=== PATIENT | male | born 1970 | race Caucasian/White ===

== ENCOUNTER 2022-02-10 09:08 | Outpatient (CLI) | payer MEDICARE, MEDICAID, SELFPAY ==
--- OUTSIDE RECORDS SUMMARY | 2022-02-14 17:00 | XMS_ITS | Encounter Summary ---
:1970 Author Organization [employer] Address [address], [place] [address] Care Team Providers Name Role Phone Gagandeep Hinojosa MD Primary Care Provider Reason for Visit Reason Comments Patient Care Coordination Encounter Details Date Type Department Care Team Description 07/17/2020 Care Coord [facility] Deborah Rodrigues Patien t Care Phone Medicine COLOR TECHNICIAN Coordination [facility] [place] [address] [place] [address] [phone] Social History Tobacco Use Types Packs/Day Years [...] Rodrigues LICSW - 07/17/2020 9:31 AM CDT Screen Tacker - Phone Call Contact with: KARLEY Easton CM, Dave Reason for call: Care Coordination Discussion/actions: Spoke with Rustam regarding his insulin supplies. We will get him supplies when he is moved into stable housing. Rustam said that he will be moving to [facility] [place] in [place] and is on [place] the world [...] Primary documented in this encounter Care Teams Resaw Tailer Relationship Specialty Start Date End Date Gagandeep Hinojosa MD PCP - General 05/17/12 [address] [place] [address] Vane Zarate Psychiatrist Psychiatry 03/22/12 [facility] Mental Health Psychotherapist 08/04/17 [facility] CM Wellness Rn 09/13/17 documented as of this encounter
--- OUTSIDE RECORDS SUMMARY | 2022-02-14 17:00 | XMS_ITS | Clinical Summary ---
:1970 Author Organization [facility] Address [address], [place] [address] Care Team Providers Name Role Phone Gagandeep [...] for each transition of care or referral. [employer] Allergies Active Allergy Reactions Severity Noted Date [...] scan blood 1 Each 0 12/04/2019 Active Hazmat Technician (FREESTYLE TALAT 2 sugars per mosaicist READER SYSTM) instructions. DEVIIndications: Uncontrolled type 2 [...] might be differe nt from the original. Automation Operator: ERLIN Salas [phone] Care coordination focus: T2DM, financial resources Living situation: lives with spouse Important notes: SSDI, significant insul in resistance, regularly reaches Medicare Coverage Gap and cannot afford insulin Problem Noted Date Non-proliferative diabetic retinopathy 05/02/2019 Hyponatremia 01/16/2018 Tinea versicolor 07/18/2015 Tobacco use disorder 10/26/2012 Anemia 05/02/2012 Overview: Anemia, unspecified Microalbuminuria 02/04/2012 AK, old 09/16/2011 History of PTCA 09/16/2011 Overview: [...] Bipolar I disorder 09/15/2005 Overview: LW Onset: [id number] ; Bipolar I Dis Resolved Problems Problem Noted Date Resolved Date Tobacco abuse 02/24/2016 12/18/2018 ACS (acute coronary syndrome) 10/25/2012 02/16/2017 Mass on back 05/02/2012 10/25/2012 Health retirement, active care coordination 03/22/2012 07/27/2018 Overview: Automation Operator: JOSETTE Yip [phone] Care coordination focus: T2DM, financial resources Living situation: lives with spouse Important notes: SSDI, significant insul in resistance, uses Relion insulin, commonly reaches Medicare Cover age Gap See care plan under Chart Review > Misc Reports > AMB [facility] CARE PLAN REPORT Last Assessment & Plan: Automation Operator: Lesly Rodrigues [facility] Care coordination focus: mental health Living situation: Lives with Important notes: case management star ting LFTs abnormal 02/02/2012 10/25/2012 S/P angioplasty with stent 05/26/2011 10/25/2012 Overview: Apr 2011 Plantar wart 05/26/2011 10/25/2012 Acute AK 05/01/2011 02/01/2012 Hypertriglyceridemia 12/11/2010 10/25/2012 Overview: >5000 [...] Influenza IIV4 (Quadrivalent) 0.5mL 01/07/2020, 01/16/2018, 02/16/2017, (14112) 02/24/2016, 03/27/2015, 01/16/2014, 03/14/2013 Influenza, Unspecified Formulation [...] Comments Blood Pressure 132/88 06/09/2020 4:43 PM INSTRUMENTATION DESIGNER Pulse 99 06/09/2020 4:43 PM INSTRUMENTATION DESIGNER Temperature 38.2 ??C (100.8 ??F) 05/02/2019 11:31 AM INSTRUMENTATION DESIGNER Respiratory Rate 16 03/07/2013 2:52 PM INSTRUMENTATION DESIGNER Oxygen Saturation 97% 10/27/2012 3:52 PM CDT Inhaled Oxygen Concentration - - Weight 88.9 kg (196 lb) 06/09/2020 4:43 PM INSTRUMENTATION DESIGNER Height 177.8 cm (5' 10) 12/04/2019 10:49 [...] Typ e / Group Dates MEDICARE MEDICARE [id number] 2009-Pres [facility] care ent SENIOR SENIOR [phone]-Pres [phone] [facility] ent [id number] SERVICES SERVICES SERVICES [address] [place] [id number] JACLYN TAL[place]OT [place] [id number] 2020-Pres [address] Med icaid ent [id number] [place] SUPERVISOR [employer] [place] [address] Yessy Personal/Family Self 1970 [address] [phone] [place] (Work[place] [address] Yessy Personal/Family Self 1970 [address] [address] [facility] [employer] [facility] Move In History [address] [place] [address] Advance Directives Latest Code Status on File Code Status Date Activated Date Inactivated Comments Full Code 10/25/2012 7:32 PM 10/27/2012 6:54 PM Full Code 05/14/2011 11:08 AM 05/14/2011 11:30 PM Full Code 04/30/2011 4:27 AM 05/01/2011 12:21 PM Care Teams Upholstery Department Supervisor Relationship Specialty Start Date End Date Gagandeep Hinojosa MD PCP - General 05/17/[address] [facility] [place] [address] Vane Zarate Psychiatrsamantha Psychiatry 03/22/12 [facility] Mental Health Psychotherapist 08/04/17 [facility] Search Marketing Analyst 09/13/17
--- OUTSIDE RECORDS SUMMARY | 2022-02-14 17:00 | XMS_ITS | Encounter Summary ---
:1970 Author Organization [employer] Address [address], [place] [address] Care Team Providers Name Role Phone Gagandeep Hinojosa MD Primary Care Provider Reason for Referral (Routine) - Closed Specialty Diagnoses / Procedures Referred By Contact Refer red To Contact Diagnoses Other chest pain Kailash Green DO Procedures Outreach Nuclear Study [address] [place] [id number] Referral ID Status Reason Start Date Expiration Date Visits Requ ested Visits Authorized [id number] Closed 06/19/2020 09/18/2021 1 1 ICATION SUPPORT ADMINISTRATOR Encounter Details Date Type Department Care Team Description 06/19/2020 Hospital Encounter Heart & Vascular Other chest pain Center Nuclear (Primary Dx) Cardiology [address] [facility] [place] [address] Social History Tobacco Use Types Packs/Day Years [...] to scan blood 1 Each 0 020 Corporate Driver (FREESTYLE sugars per TALAT 2 READER SYSTNicOx) sql etl developer DEVIIndications: instructions. Uncontrolled type 2 diabetes mellitus [...] Notes Kim Guadarrama - 06/19/2020 12:00 PM APPLICATION SUPPORT ADMINISTRATOR Encounter addended by: Kim Guadarrama on: 06/27/2020 7:07 AM Actions taken: Clinical Note Signed, Result filed ICATION SUPPORT ADMINISTRATOR documented in this encounter Procedure Notes Kim Guadarrama - 06/19/2020 12:00 PM CSTAssociated Order(s): OUTREACH NUCLEAR STUDY Results NM CARDIAC MPI STRESS TEST ( (Order [id number]) STRESS TEST PHARMACOLOGICAL ( (Order [id number]) Original Order Diagnosis: Chest pain [R07.9 (ICD-10-CM)] Chest pain, normal EKG Chest pain, normal EKG Reading Provider(s) Sonia Jara MD PACs images are not viewable in [employer] Link. See text report below. STRESS TEST PHARMACOLOGICAL Order: [id number] Status: Final result Visible to patient: No (not released) Next appt: None Dx: Chest pain Linked study orders: NM CARDIAC MPI STRESS TEST (Order: [id number]) Details Reading Physician Reading Date Result Priority Sonia Jara MD [phone] 06/19/2020 Routine Narrative & Impression STUDY: LEXISCAN NUCLEAR STRESS TEST, 06/19/2020. ORDERING DIAGNOSIS: Chest pain. This is a rest/stress single-isotope, single-photon emission computed tomography imaging performed using pharmacologic stress with gated SPECT imaging performed for the evaluation of known coronary artery disease in a 50-year-old male with risk factors of tobacco use, hyperlipidemia, hypertension, anddiabetes with past history of WA and percutaneous intervention who now presents with [...] patient. Patient Information Patient Name Timur Krishnamurthy ([id number]) Sex Male ICATION SUPPORT ADMINISTRATOR documented in this encounter Plan of Treatment Not on filedocumented as of this encounter Procedures Procedure Name Priority Date/Time Associated Diagnosis Comme nts OUTREACH NUCLEAR Routine 06/19/2020 12:00 PM Other chest pain Results for this STUDY APPLICATION SUPPORT ADMINISTRATOR procedure are i n the results section. documented in this encounter Results Outreach Nuclear Study (06/19/2020 12:00 PM APPLICATION SUPPORT ADMINISTRATOR) Narrative POCT - 06/19/2020 12:00 PM APPLICATION SUPPORT ADMINISTRATOR Kim Guadarrama ? 06/27/2020 ??7:06 AM Results NM CARDIAC MPI STRESS TEST ( [id number]) (Order [id number]) STRESS TEST PHARMACOLOGICAL (Accession A [id number]) (Order [id number]) Original Order Diagnosis: Chest pain [R0 7.9 (ICD-10-CM)] Chest pain, normal EKG Chest pain, normal EKG Reading Provider(s) Sonia Jara MD PACs images are not viewable in [employer] Link. See text report below. STRESS TEST PHARMACOLOGICAL Order: [id number] Status: Final result Visible to patient: No (not released) Next appt: None Dx: Chest pain Linked study orders: NM CARDIAC MPI STRE SS TEST (Order: [id number]) Details Reading Physician Reading Date Result Pr willdeepak Sonia Jara MD [phone] 06/19/2020 Routine ?? Narrative & Impression ?? [...] nayana, and diabetes with past history of WA and percutaneous inte rvention who now presents [...] This result is not viewable by the [facility]. Patient Information Patient Name Timur Krishnamurthy ([id number]) Sex Male Procedure Note July - 06/19/2020 12:00 PM CST Results NM CARDIAC MPI STRESS TEST ( [id number]) (Order [id number]) STRESS TEST PHARMACOLOGICAL (Accession A [id number]) (Order [id number]) Original Order Diagnosis: Chest pain [R0 7.9 (ICD-10-CM)] Chest pain, normal EKG Chest pain, normal EKG Reading Provider(s) Sonia Jara MD PACs images are not viewable in [employer] Link. See text report below. STRESS TEST PHARMACOLOGICAL Order: [id number] Status: Final result Visible to patient: No (not released) Next appt: None Dx: Chest pain Linked study orders: NM CARDIAC MPI STRE SS TEST (Order: [id number]) Details Reading Physician Reading Date Result Pr Sonia Gilbert MD [phone] 06/19/2020 Routine Narrative & Impression STUDY: LEXISCAN NUCLEAR STRESS TEST, . ORDERING DIAGNOSIS: Chest pain. This is a rest/stress single-isotope, si ngle-photon emission computed tomography imaging performed using pharmacologic stress with gated SPECT imaging performed for the evaluation of known coronary artery disease in a 50-year-old male with risk factors of to bacco use, hyperlipidemia, hypertension, and diabetes with past history of WA and percutaneous intervention who now presents with [...] humphrey. Patient Information Patient Name Timur Krishnamurthy ([id number]) Sex Male Kailash Green DO PN CARDIAC SERVICES ORDERABL ES Performing Organization Address City/State/ZIP Code Phon e Number POCT documented in this encounter Visit Diagnoses Diagnosis Other chest pain - Primary documented in this encounter Care Teams Php Developer Relationship Specialty Start Date End Date Gagandeep Hinojosa MD PCP - General 05/17/12 [address] [facility] [place] [id number] Vane Zarate Psychiatrsamantha Psychiatry 03/22/12 [facility] Psychotherapist 08/04/17 [facility] Microbiological Lab Technician 09/13/17 documented as of this encounter
--- OUTSIDE RECORDS SUMMARY | 2022-02-14 17:00 | XMS_ITS | Encounter Summary ---
:1970 Author Organization [employer] Address [address] [place] [address] Care Team Providers Name Role Phone Gagandeep Michaud MD Primary Care Provider Reason for Visit Reason Comments Refill metoprolol succinate (TOPROL XL) 50 MG 24 hour release tablet [Pharmacy Med Name: Metoprolol Succinate E R 50 MG Tablet extended release 24 hr] Encounter Details Date Type Department Care Team Description 09/02/2020 Refill Gaagndeep Storm, Refil l (metoprolol Medicine MD succinate (TOPROL XL) [address] MG 24 hour release [place] [address] [place] [address] tablet [Pharmacy Med [phone] (Wo rk) Name: Metoprolol Succinate ER 50 [...] 1 TABLET BY MOUTH DAILY Interface, Out Coin Query - 09/02/2020 1:16 PM CDT metoprolol [...] MICHAUD) Next scheduled visit: None Powered by Le[employer]ir by [employer], Reference: [id number], 09/02/2020 1:16:41 PM CDT, Pool:MANUEL REFILL ([id number]) documented in this encounter Plan of Treatment Not on filedocumented as of this encounter Visit Diagnoses Diagnosis Essential hypertension (HRC) Unspecified essential hypertension documented in this encounter Care Teams Mechanical Equipment Test Engineer Relationship Specialty Start Date End Date Gagandeep Michaud MD PCP - General 05/17/12 [address] [facility] [place] [address] Vane Zarate Psychiatrist Psychiatry 03/22/12 [facility] Mental Health Psychotherapist 08/04/17 [facility] Extension Professor 09/13/17 documented as of this encounter
--- OUTSIDE RECORDS SUMMARY | 2022-02-14 17:00 | XMS_ITS | Encounter Summary ---
:1970 Author Organization [employer] [facility] Address [address], [place] [address] Care Team Providers Name Role Phone Gagandeep Hinojosa MD Primary Care Provider Reason for Visit Reason Comments Patient Care Coordination Encounter Details Date Type Department Care Team Description 06/24/2020 Care Coord [facility] Deborah Rodrigues Patien t Care Phone Medicine [facility] Coordination [facility] [address] [place] [address] [phone] Social History Tobacco Use Types Packs/Day Years [...] routed to JOSETTE [facility] as an FYI HALMOLOGIST RETINA SPECIALIST documented in this encounter Plan of Treatment Not on filedocumented as of this encounter Visit Diagnoses Diagnosis Complex care coordination - Primary documented in this encounter Care Teams Emc Storage Architect Relationship Specialty Start Date End Date Gagandeep Hinojosa MD PCP - General 05/17/12 [address] [facility] [place] [address] Vane Zarate Psychiatrist Psychiatry 03/22/12 [facility] Mental Health Psychotherapist 08/04/17 [facility] Wireless Internet Installer 09/13/17 documented as of this encounter
--- OUTSIDE RECORDS SUMMARY | 2022-02-14 17:00 | XMS_ITS | Encounter Summary ---
:1970 Author Organization [facility] Address [address] [address] Care Team Providers Name Role Phone Gagandeep Hinojosa MD Primary Care Provider Reason for Visit Reason Comments Patient Care Coordination Encounter Details Date Type Department Care Team Description 09/05/2020 Care Coord [facility] [facility] Deborah Rodrigues Patien t Care Phone Medicine [facility] Coordination [facility] [place] [address] [place] [address] [phone] Social History Tobacco Use Types Packs/Day Years [...] Rodrigues LICSW - 09/05/2020 1:18 PM CDT String Winding Machine Operator - Phone Call Contact with: Rustam Reason for call: Care Coordination Discussion/actions: Received a phone call from Rustam. He stated that he is seeing a provider in [place] and is planning on following up there. He requested his Dermatology appointment be cancelled at this time. Rustam also said that the insulin samples that he received are not needed anymore. Rustam did agree to continue contact with care coordination, as he is planning on moving back to [place] after the first of the year. No immediate concerns at this time. Shared plan: -Care Coordination follow-up as needed. Pt verbalized understanding and agreed with plan of care and follow up. documented in this encounter Plan of Treatment Not on filedocumented as of this encounter Visit Diagnoses Diagnosis Health mcfp, active care coordinati on - Primary documented in this encounter Care Teams Security Incident Response Specialist Relationship Specialty Start Date End Date Gagandeep Hinojosa MD PCP - General 05/17/12 [facility] [facility] [place] [address] Vane Zarate Psychiatrist Psychiatry 03/22/12 [facility] Mental Health Psychotherapist 08/04/17 [facility] Car Repair Supervisor 09/13/17 documented as of this encounter
--- OUTSIDE RECORDS SUMMARY | 2022-02-14 17:00 | XMS_ITS | Encounter Summary ---
:1970 Author Organization [employer] [facility] Address [address], [place] [address] Care Team Providers Name Role Phone Gagandeep Michaud MD Primary Care Provider Reason for Visit Reason Comments Refill Aspirin and Depakote Encounter Details Date Type Department Care Team Description 09/02/2020 Refill [facility] Gagandeep Michaud, Refil l (Aspirin and Medicine MD Shearer) 14[address] [facility] . [address] [place] [address] [place], [place] [address] (Wo rk) Social History Tobacco Use Types [...] provider through [place] as he moved to [place] now. Will request refills through new provider. [...] MICHAUD) Next scheduled visit: None Powered by [employer] [facility] by [employer], Reference: [id number], 09/02/2020 1:13:39 PM CDT, Pool:MANUEL LANDAILL ([id number]) divalproex (DEPAKOTE) [address] tablet [Pharmacy [...] WBC: 8.4 k/cmm on 11/28/2018 Powered by MakeSpace by [employer], Reference: [id number], 09/02/2020 1:13:39 PM CDT, Pool:MANUEL MOORE ([id number]) documented in this encounter Plan of Treatment Not on filedocumented as of this encounter Visit Diagnoses Not on filedocumented in this encounter Care Teams Director Intelligence Analysis Programs Relationship Specialty Start Date End Date Gagandeep Michaud MD PCP - General 05/17/12 [facility]5 [facility] [place] [address] Vane Zarate Psychiatrist Psychiatry 03/22/12 [facility] Mental Health Psychotherapist 08/04/17 [facility] Counter Supply Worker 09/13/17 documented as of this encounter
--- OUTSIDE RECORDS SUMMARY | 2022-02-14 17:00 | XMS_ITS | Encounter Summary ---
:1970 Author Organization [employer] Address [address] [place] [address] Care Team Providers Name Role Phone Gagandeep Michaud MD Primary Care Provider Reason for Visit Reason Comments Refill Lasix Encounter Details Date Type Department Care Team Description 09/02/2020 Refill [facility] Gagandeep Michaud MD Refill (Lasix) 1415 [facility] . [address] [place] [address] [place], [place] [address] (Wo rk) Social History Tobacco Use Types [...] provider through [place] as he moved to [place] now. Will request refills through new provider. [...] TABLET BY MOUTH EVERY MORNING Interface, Out Apex Construction Prov Query - 09/02/2020 1:14 PM CDT [...] K: 5 mEq/L on 11/28/2018 Powered by [employer]Spring by [employer], Reference: [id number], 09/02/2020 1:14:54 PM CDT, Pool: MANUEL LANDAILL ([id number]) documented in this encounter Plan of Treatment Not on filedocumented as of this encounter Visit Diagnoses Not on filedocumented in this encounter Care Teams Yard Manager Relationship Specialty Start Date End Date Gagandeep Michaud MD PCP - General 05/17/12 1415 [facility] [place] [address] Vane Zarate Psychiatrist Psychiatry 03/22/12 [facility] Mental Health Psychotherapist 08/04/17 [facility] Signal Processing Engineer 09/13/17 documented as of this encounter
--- OUTSIDE RECORDS SUMMARY | 2022-02-14 17:00 | XMS_ITS | Encounter Summary ---
:1970 Author Organization [facility] Address [address] [address] Care Team Providers Name Role Phone Gagandeep Hinojosa MD Primary Care Provider Reason for Visit Reason Comments Patient Care Coordination Encounter Details Date Type Department Care Team Description 08/20/2020 Care Coord [facility] Deborah Rodrigues Patien t Care Phone Medicine METAL PICKLING EQUIPMENT OPERATOR Coordination [facility] [place] [address] [place] [address] [phone] Social History Tobacco Use Types Packs/Day Years [...] Rodrigues LICSW - 08/20/2020 2:18 PM CDT Software Engineer Web Services - Phone Call Contact with: KARLEY Easton CM Reason for call: Care Coordination Discussion/actions: Called Rustam to check in, and he stated he is doing ???okay and is at a [facility] in [place].Rustam said that he has been having a lot of anxiety, but is trying to get settled in down there. Rustam is establishing medical care in [place], but agreed to call if he needed anything. I talked with him about the free insulin that was shipped to the [facility], but he was unable to think about a solution on how to get the insulin. I told Rustam that he has a dermatology appointment next month, at the [facility], so he may be able to [...] he is going to make sure the fci can transport him. Once Han confirms that [...] Primary documented in this encounter Care Teams Fryer Operator Relationship Specialty Start Date End Date Gagandeep Hinojosa MD PCP - General 05/17/12 [address] [place] [address] Vane Zarate Psychiatrist Psychiatry 03/22/12 [facility] Mental Health Psychotherapist 08/04/17 [facility] Distribution Manager 09/13/17 documented as of this encounter
--- OUTSIDE RECORDS SUMMARY | 2022-02-14 17:00 | XMS_ITS | Encounter Summary ---
:1970 Author Organization [employer] Address [address] [place] [address] Care Team Providers Name Role Phone Gagandeep Michaud MD Primary Care Provider Reason for Visit Reason Comments Refill Crestor Encounter Details Date Type Department Care Team Description 09/02/2020 Refill [facility] Gagandeep Michaud MD Refill (Crestor) 1415 [facility] . [address] [place] [address] [place], [place] [address] (Wo rk) Social History Tobacco Use Types [...] provider through [place] as he moved to [place] now. Will request refills through new provider. [...] MICHAUD) Next scheduled visit: None Powered by [facility] by [employer], Reference: [id number], 09/02/2020 1:18:44 PM CDT, Pool:MANUEL REFILL ([id number]) documented in this encounter Plan of Treatment Not on filedocumented as of this encounter Visit Diagnoses Not on filedocumented in this encounter Care Teams Mental Health Program Specialist Relationship Specialty Start Date End Date Gagandeep Michaud MD PCP - General 05/17/12 1415 [facility] [place] [address] Vane Zarate Psychiatrist Psychiatry 03/22/12 [facility] Mental Health Psychotherapist 08/04/17 [facility] Quality Eng 09/13/17 documented as of this encounter
--- OUTSIDE RECORDS SUMMARY | 2022-02-14 17:00 | XMS_ITS | Encounter Summary ---
:1970 Author Organization [employer] Address [address] [place] [address] Care Team Providers Name Role Phone Gagandeep Hinojosa MD Primary Care Provider Reason for Visit Reason Comments QUESTIONS, GENERAL Encounter Details Date Type Department Care Team Description 07/16/2020 Telephone [place] [facility] Gagandeep Hinojosa, QUESTIONS, GENERAL 14[address] [facility] [place] [address] 1415 [facility] [phone] [place] [phone] (Wo rk) Social History Tobacco [...] Rodrigues LICSW - 07/17/2020 3:51 PM CDT Bindery Machine Setter/Set Up Operator - Phone Call Contact with: Rustam Reason for call: Care Coordination Discussion/actions: Received a phone call back from Rustam. We discussed his diabetic supplies and hewill get them when he moves to permanent housing. Rustam is currently in an IRTS and has been asked to leave. Spoke with his CMHan, who confirmed Rustam will be moving to [facility] in [place]. Once Rustam is settled there, we will [...] [place]. [place] [phone] if he calls the clinic. Corinne Villafuerte - 07/16/2020 1:08 PM CDT Miscellaneous Questions & FYI's - Question/Concern (DO NOT use for billing and coding concerns see BEST care reporting system) What is your question or concern? Pt calling regarding diabetic supplies that was shipped to in [place]. See encounter from rn transitional care on 06/30/2020. States he has a stable address now. The address is: Sarai M[place]s [address] [place] [address] Phone number for Sarai powell [phone]. Would like a call back when it [...] on filedocumented in this encounter Care Teams Engraver Pantograph Relationship Specialty Start Date End Date Gagandeep Hinojosa MD PCP - General 05/17/12 [address] [place] [address] Vane Zarate Psychiatrist Psychiatry 03/22/12 [facility] Psychotherapist 08/04/17 [facility] CM Air Quality Specialist 09/13/17 documented as of this encounter
--- OUTSIDE RECORDS SUMMARY | 2022-02-14 17:00 | XMS_ITS | Clinical Summary ---
:1970 Author Organization [employer] [place] [address] Care Team Providers Name Role Phone Glenys Alcantar MD Unavailable [facility] [place] Unavailable Zhane Stanley DO Primary [...] 2 diabetes mellitus without complication, unspecified whether assisted insulin use (HC) polyethylene Drink up to [...] EVERY 22 tabletIndications: NIGHT AT CAD in [place] artery BEDTIME FreeStyle Bharath 2 To be used to 1 Each 0 11/21/19 Active ReaderIndications: read blood 22 Type 2 diabetes sugars per mellitus with evening sitter's diabetic directions. polyneuropathy, with long-term current use [...] Telephone Shaqra, Zhane Анна, Refill Req uest ([place] DO Cough Drops - C samra, Ibuprofen [...] Name Administration Dates Next Due COVID-19 vaccine (A2B 09/16/2020, 08/26/2020 30mcg/0.3mL) PF, MDV Hepatitis B [...] Zhane Stanley , DO [address] [place] [address] (Wo rk) Health Maintenance Due [...] note that all CT scans at [facility] use dose modulation, iterative reconstruction and/or weight-b [...] ?? If you have questions, please contact [facility] health care provider. CT CHEST SCREENING LOW-DOSE [...] DISH . Upper abdomen: Unremarkable. Keila Diamond INSTRUCTIONAL SUPPORT SPECIALIST CT from Last 3 Months Insurance Payer Benefit Plan / Subscriber ID Effective Dates Phone Addre ss Type Group MEDICARE PART A MEDICARE PART [id number] 1995-Presen ATTN: CLAIMS - HB USE ONLY A HB ONLY t [address] [place] [address] MEDICARE PART B MEDICARE PART [id number] 2009-Presen ATTN: CLAIMS - HB USE ONLY B HB ONLY t [address] [place] [address] MEDICARE - PB MEDICARE PB [id number] 2009-Presen ATTN : CLAIMS USE ONLY ONLY t [address] [place] [address] MEDICARE PPS HC MEDICARE [id number] 1995-Presen [address] 2019 [address] [place] [address] [place]ICAID [place] [id number] 2020-Presen [address] [place] [address] Advance Directives Documents on File Type Date Recorded Patient Trading Manager Explanati on POLST 08/20/2020 5:18 PM POLST [...] Code Status Discussion: Not Discussed Care Teams Customer Support Coordinator Relationship Specialty Start Date End Date Zhane Stanley DO PCP - General Internal Medicine 09/08/20 [address] [place] [address] Glenys Alcantar MD Endocrinology 05/03/17 [address] [place] [address] [facility], 05/21/20 [place] Samantha Minaya, Pharmacist Medication Pharmacology 10/21/20 PharmD Management [address] [place], [place] [id number]
--- OUTSIDE RECORDS SUMMARY | 2022-02-14 17:00 | XMS_ITS | Encounter Summary ---
:1970 Author Organization [facility] Address [address] [place] [address] Care Team Providers Name Role Phone Gagandeep Michaud MD Primary Care Provider Reason for Visit Reason Comments Refill metFORMIN (GLUCOPHAGE) 1000 MG tablet [Pharmacy Med Name: metFORMIN HCl 1000 MG Tablet]; lisinopril (ZEST RIL) 5 MG tablet [Pharmacy Med Name: Lisinopril 5 MG Tablet] Encounter Details Date Type Department Care Team Description 09/02/2020 Refill [facility] [facility] Gagandeep Michaud, Refil l (metFORMIN Medicine MD (GLUCOPHAGE) [address] tablet [[place] [address] [place] [address] Name: metFORMIN HCl 1000 [phone] (Wo rk) MG Tablet]; lisinopril (ZESTRIL) 5 [...] MICHAUD) Next scheduled visit: None Powered by [employer] by [employer], Reference: [id number], 09/02/2020 1:17:40 PM CDT, Pool:MANUEL MOORE ([id number]) documented in this encounter Plan of Treatment Not on filedocumented as of this encounter Visit Diagnoses Not on filedocumented in this encounter Care Teams Cotton Tipper Relationship Specialty Start Date End Date Gagandeep Michaud MD PCP - General 05/17/[address] [place], [place] [address] [address] Vane Zarate Psychiatrist Psychiatry 03/22/12 [facility] Mental Health Psychotherapist 08/04/17 [facility] Organ Fixer 09/13/17 documented as of this encounter
--- OUTSIDE RECORDS SUMMARY | 2022-02-14 17:00 | XMS_ITS | Encounter Summary ---
:1970 Author Organization On license of [facility] Address [address] [place] [address] Care Team Providers Name Role Phone Gagandeep Hinojosa MD Primary Care Provider Reason for Visit Reason Comments FYI Encounter Details Date Type Department Care Team Description 09/19/2020 Telephone [place] [facility] Gagandeep Hinojosa MD FYI 1415 [facility] . [address]15 [place] [address] [place] [id number] (Wo rk) Social History Tobacco Use Types [...] PCP. States that PCP can correspond with [facility] and he sees Dr. Zhane Stanley. [...] on filedocumented in this encounter Care Teams Skiver Sock Linings Relationship Specialty Start Date End Date Gagandeep Hinojosa MD PCP - General 05/17/12 1415 [place] [address] Vane Zarate Psychiatrist Psychiatry 03/22/12 [facility] Psychotherapist 08/04/17 [facility] Zigzag Appliquer 09/13/17 documented as of this encounter
--- OUTSIDE RECORDS SUMMARY | 2022-02-14 17:00 | XMS_ITS | Encounter Summary ---
:1970 Author Organization [facility] Address [address] [address] Care Team Providers Name Role Phone Gagandeep Hinojosa MD Primary Care Provider Reason for Visit Reason Comments Patient Care Coordination Encounter Details Date Type Department Care Team Description 05/05/2021 Care Coord [facility] Deborah Rodrigues Patien t Care Phone Medicine HOSE TENDER Coordination [facility] [place] [address] [place] [address] [phone] Social History Tobacco Use Types Packs/Day Years [...] LICSW - 05/05/2021 1:25 PM CST Health Usp, Active Care Coordination resolved in patient???s Problem List. Reason: Patient moved out of the area Patient may be referred again in the future if needed. CIATE MANAGER AFFILIATE MARKETING documented in this encounter Plan of Treatment Not on filedocumented as of this encounter Visit Diagnoses Diagnosis Health usp, active care coordinati on - Primary documented in this encounter Care Teams Audio Engineer Relationship Specialty Start Date End Date Gagandeep Hinojosa MD PCP - General 05/17/12 6[address] [facility] [place]ber [address] Vane Zarate Psychiatrist Psychiatry 03/22/12 [facility] Mental [facility] Psychotherapist 08/04/17 [facility] Hair Spinning Machine Operator 09/13/17 documented as of this encounter
--- OUTSIDE RECORDS SUMMARY | 2022-02-14 17:00 | XMS_ITS | Encounter Summary ---
:1970 Author Organization [facility] Address [address] [place] [address] Care Team Providers Name Role Phone Gagandeep Michaud MD Primary Care Provider Reason for Visit Reason Comments Refill metFORMIN (GLUCOPHAGE) 1000 MG tablet [Pharmacy Med Name: metFORMIN HCl 1000 MG Tablet]; lisinopril (ZEST RIL) 5 MG tablet [Pharmacy Med Name: Lisinopril 5 MG Tablet] Encounter Details Date Type Department Care Team Description 09/02/2020 Refill [place] [facility] Gagandeep Michaud, Refil l (metFORMIN Medicine MD (GLUCOPHAGE) [address] tablet [[place] [address] [place] [address] Name: metFORMIN HCl 1000 [phone] (Wo rk) MG Tablet]; lisinopril (ZESTRIL) 5 [...] MICHAUD) Next scheduled visit: None Powered by Pythian by Strikingly, Reference: [id number], 09/02/2020 4:39:03 PM CDT, Pool:MANUEL MOORE ([id number]) documented in this encounter Plan of Treatment Not on filedocumented as of this encounter Visit Diagnoses Not on filedocumented in this encounter Care Teams Stoneworking Belt Sander Relationship Specialty Start Date End Date Gagandeep Michaud MD PCP - General 05/17/12 1415 [facility] [place] [place] [address] Vane Zarate Psychiatrist Psychiatry 03/22/12 [facility] Psychotherapist 08/04/17 [facility] Leak Operator Paraffin Plant 09/13/17 documented as of this encounter
--- OUTSIDE RECORDS SUMMARY | 2022-02-14 17:00 | XMS_ITS | Encounter Summary ---
:1970 Author Organization [employer] Address [address] [address] Care Team Providers Name Role Phone Gagandeep Michaud MD Primary Care Provider Reason for Visit Reason Onset Date Comments Refill 07/01/2020 trihexyphenidyl (ART ANE) 2 MG tablet Encounter Details Date Type Department Care Team Description 07/01/2020 Refill [facility] Gagandeep Michaud, Refil l (trihexyphenidyl Medicine (ARTANE) 2 MG tablet) 1415 [facility] . [address] [place] [address] [place] [address]659 (Wo rk) Social History Tobacco Use Types [...] found) Next scheduled visit: None Powered by Travelata, Reference: [id number], 07/01/2020 8:27:18 AM Minerva GRANGER ([id number]) documented in this encounter Plan of Treatment Not on filedocumented as of this encounter Visit Diagnoses Not on filedocumented in this encounter Care Teams Delicatessen Clerk Relationship Specialty Start Date End Date Gagandeep Michaud MD PCP - General 05/17/[address] [place] [address] [place] Gerber [address] Vane Zarate Psychiatrist Psychiatry 03/22/12 [facility] Psychotherapist 08/04/17 [facility] Cut Off Machine Operator 09/13/17 documented as of this encounter
--- OUTSIDE RECORDS SUMMARY | 2022-02-14 17:00 | XMS_ITS | Encounter Summary ---
:1970 Author Organization [facility] Address [address] [place] [address] Care Team Providers Name Role Phone Gagandeep Michaud MD Primary Care Provider Reason for Visit Reason Comments Refill NOVOFINE AUTOCOVER PEN NEEDL E 30G X 8 MM [Pharmacy Med Name: NovoFine Autocover Pen Needle 30G X 8 MM Miscellaneous] Encounter Details Date Type Department Care Team Description 09/07/2021 Refill [place] [facility] Gagandeep Michaud, Refil l (NOVOFINE Medicine AUTOCOVER PEN NEEDLE 30G [address] X 8 MM [Pharmacy Med [place]il [address] [place] [address] Name: NovoFine Autocover [phone] (Wo rk) Pen Needle 30G X 8 [...] visit Patient no longer receiving care at [facility] Frontline: Route to Refill Wiza Admin Pool-PN (P [id number]) Shayy Haynes RN - 09/10/2021 9:52 AM CDT Further Assistance Needed on Refill from Manager Background Patient is overdue for Office visit. An office visit is overdue (performed over 15 months ago, required every 12 months). Last qualifying visit: 06/09/2020 (with GAGADNEEP MICHAUD) Next scheduled visit: None Please call [...] visit: None [facility] Embedded Refills, Reference: [id number], 09/07/2021 1:41:05 PM CDT, Pool: MANUEL REFILL ([id number]) documented in this encounter Plan of Treatment Not on filedocumented as of this encounter Visit Diagnoses Not on filedocumented in this encounter Care Teams Chief Station Engineer Relationship Specialty Start Date End Date Gagandeep Michaud MD PCP - General 05/17/12 1415 [place] [address] Vane Zarate Psychiatrist Psychiatry 03/22/12 [facility] Psych[facility] 08/04/17 [facility] Qa Lead 09/13/17 documented as of this encounter
--- OUTSIDE RECORDS SUMMARY | 2022-02-14 17:00 | XMS_ITS | Encounter Summary ---
:1970 Author Organization [facility] Address [address] [place] [address] Care Team Providers Name Role Phone Gagandeep Hinojosa MD Primary Care Provider Reason for Visit Reason Comments Forms Insulin Treated Diabetes Swati litus Report Encounter Details Date Type Department Care Team Description 06/12/2020 Telephone [facility] Gagandeep Hinojosa, Forms (Insulin Treated Medicine Diabetes Mellitus [address] 1415 [facility] ) [place] [address] [place] [address] [phone] (Wo rk) Social History Tobacco Use Types [...] 6:16 PM CST Form completed and faxed MATIC HEAD SAWYER Abel Novak MA - 06/13/2020 9:38 AM CST Form filled out and routed to Ashish to sign MATIC HEAD SAWYER Viviana Anderson - 06/12/2020 12:19 PM CST Forms & Letters What form/letter are you requesting? Insulin Treated Diabetes for [facility] This letter/other is needed from: Gagandeep Hinojosa MD for DMV How would you like to receive your completed letter/other? Fax to [place] [facility] at [facility] at this fax number: [phone] Additional comments (related to the above concern): [...] contact you.) Please route to: BRENT Coates MATIC HEAD SAWYER documented in this encounter Plan of Treatment Not on filedocumented as of this encounter Visit Diagnoses Not on filedocumented in this encounter Care Teams Head Shipper Relationship Specialty Start Date End Date Gagandeep Hinojosa MD PCP - General 05/17/[address] [place] [address] Vane Zarate Psychiatrist Psychiatry 03/22/12 [facility] Psychotherapist 08/04/17 [facility] Bias Cutter Helper 09/13/17 documented as of this encounter
--- OUTSIDE RECORDS SUMMARY | 2022-02-14 17:00 | XMS_ITS | Encounter Summary ---
:1970 Author Organization [employer] Address [address] [place] [address] Care Team Providers Name Role Phone Gagandeep Michaud MD Primary Care Provider Reason for Visit Reason Onset Date Comments Refill 07/09/2020 insulin aspart (YOEL LOG) 100 UNIT/ML pen injection Encounter Details Date Type Department Care Team Description 07/09/2020 Refill Gagandeep Storm, Rochelle l (insulin aspart Medicine (NOVOLOG) 100 UNIT/ML [address] pen injection) [place] Vigil [address] [place] VIGIL [phone] (Wo rk) Social History Tobacco Use Types [...] last 12 months and Please advise if detention supply is appropriate Last qualifying visit: 06/09/2020 [...] HBA1C: 11.3 % on 12/04/2019 Powered by Frontier Market Intelligence, Reference: [id number], 07/09/2020 11:39:43 AM CDT, Pool: PN REFILL WIZARD ADMIN ([id number]) Sruthi Ledesma - 07/09/2020 11:39 AM CDT [...] refills) Please route to: Refill Pool (P [id number]) [place] FP Pool [place] Patients ONLY (P [id number]) [facility] PEDSS Dr. Laguerre ONLY (P [id number]) documented in this encounter Plan of Treatment Not on filedocumented as of this encounter Visit Diagnoses Diagnosis Uncontrolled type 2 diabetes mellitus wi th hyperglycemia (HRC) documented in this encounter Care Teams Bakery Sales Clerk Relationship Specialty Start Date End Date Gagandeep Michaud MD PCP - General 05/17/12 1415 [facility] [place] [address] Vane Zarate Psychiatrist Psychiatry 03/22/12 [facility] Psychotherapist 08/04/17 [facility] Rn Dermatology 09/13/17 documented as of this encounter
--- OUTSIDE RECORDS SUMMARY | 2022-02-14 17:00 | XMS_ITS | Encounter Summary ---
:1970 Author Organization [facility] Address [address] [place] [address] Care Team Providers Name Role Phone Gagandeep Michaud MD Primary Care Provider Reason for Visit Reason Comments Refill NOVOFINE AUTOCOVER PEN NEEDL E 30G X 8 MM [Pharmacy Med Name: NovoFine Autocover Pen Needle 30G X 8 MM Miscellaneous] Encounter Details Date Type Department Care Team Description 09/28/2021 Refill [facility] Gagandeep Michaud, Refil l (NOVOFINE Medicine AUTOCOVER PEN NEEDLE 30G [address] X 8 MM [Pharmacy Med [place] [address] [place] [address] Name: NovoFine Autocover [phone] (Wo rk) Pen Needle 30G X 8 [...] visit Patient no longer receiving care at [facility] PATIENT IS [facility] AT [facility] [place]. Frontline: Route to Refill Wizard Admin Pool-PN (P [id number]) Alyssa Porter RN - 10/02/2021 9:16 AM CDT Further Assistance Needed on Refill from Electrotyper Apprentice Patient is overdue for Office visit. An [...] visit: None [facility] Embedded Refills, Reference: [id number], 09/28/2021 11:11:56 AM CDT, Pool: MANUEL REFILL ([id number]) documented in this encounter Plan of Treatment Not on filedocumented as of this encounter Visit Diagnoses Not on filedocumented in this encounter Care Teams Tentmaker Relationship Specialty Start Date End Date Gagandeep Michaud MD PCP - General 05/17/[address] [place] [address] [place] Ger[place] [address] Vane Zarate Psychiatrist Psychiatry 03/22/12 [facility] Psychotherapist 08/04/17 [facility] Binding Machine Operator 09/13/17 documented as of this encounter
--- OUTSIDE RECORDS SUMMARY | 2022-02-14 17:00 | XMS_ITS | Encounter Summary ---
:1970 Author Organization [employer] Address [address], [place] [address] Care Team Providers Name Role Phone Gagandeep Hinojosa MD Primary Care Provider Reason for Visit Reason Comments Patient Care Coordination Encounter Details Date Type Department Care Team Description 09/02/2020 Care Coord [facility] Deborah Rodrigues Patien t Care Phone Medicine BRANCH ACCOUNT EXECUTIVE Coordination [facility] [address] [place] [address] [place] [address] [phone] Social History Tobacco Use Types Packs/Day Years [...] Rodrigues LICSW - 09/02/2020 2:43 PM CDT Rusatm called to check-in. He called two times [...] would not be coming up to the [facility] anytime soon, and that things in [place] are going well. Rustam denied any immediate concerns. Called Rustam back and left him a message, will wait to hear back from him. documented in this encounter Plan of Treatment Not on filedocumented as of this encounter Visit Diagnoses Diagnosis Health correction, active care coordinati on - Primary documented in this encounter Care Teams Plant Controller Relationship Specialty Start Date End Date Gagandeep Hinojosa MD PCP - General 05/17/[address] [place] [address] [place] [address] Vane Zarate Psychiatrist Psychiatry 03/22/12 [facility] Health Psychotherapist 08/04/17 [facility] Spot Facer 09/13/17 documented as of this encounter
--- OUTSIDE RECORDS SUMMARY | 2022-02-14 17:00 | XMS_ITS | Encounter Summary ---
:1970 Author Organization [facility] Address [address], [place] [address] Care Team Providers Name Role Phone Gagandeep Michaud MD Primary Care Provider Reason for Visit Reason Comments Refill Lisinopril and Metformin Encounter Details Date Type Department Care Team Description 09/02/2020 Refill [facility] Gagandeep Michaud, Refil l (Lisinopril and Medicine Metformin) 1415 [facility] . [address] [place] [address] [place] [address] [phone] (Wo rk) Social History Tobacco Use Types [...] through Jose Danielina as he moved to [place] now. Will request refills through new provider. No other requests. Interface, Out Surescripts Prov Query - 09/05/2020 5:10 AM CDT The patient chart could not be locked at 09/05/2020 5:10 AM by [facility] in order to process this refill request. Please try re-routing to attempt to retry processing through [employer]. Interface, Out Surescripts Prov Query - 09/05/2020 5:09 AM CDT The patient chart could not be locked at 09/05/2020 5:09 AM by [facility] in order to process this refill request. Please try re-routing to attempt to retry processing through [employer] [facility]. Abbie Mitchell RN - 09/05/2020 5:09 AM [...] months) Last qualifying visit: 06/09/2020 (with GAGANDEEP MICAHUD) Next scheduled visit: None Cr: 0.8 mg/dL on 12/04/2019 K: 5 mEq/L on 11/28/2018 Powered by MediaRoost by Tarpon [employer], Reference: [id number], 09/02/2020 1:16:41 PM CDT, Pool:MANUEL REFILL ([id number]) metFORMIN (GLUCOPHAGE) 1000 MG tablet [Pharmacy Med [...] HBA1C: 11.3 % on 12/04/2019 Powered by MediaRoost by [employer], Reference: [id number], 09/02/2020 1:16:41 PM CDT, Pool:MANUEL MOORE ([id number]) documented in this encounter Plan of Treatment Not on filedocumented as of this encounter Visit Diagnoses Not on filedocumented in this encounter Care Teams Platform Material Handling Supervisor Relationship Specialty Start Date End Date Gagandeep Michaud MD PCP - General 05/17/[address] [place] [address] [place] Gerber [address] Vane Zarate Psychiatrist Psychiatry 03/22/12 [facility] [place] [facility] Mental [facility] Psychotherapist 08/04/17 [facility] Product Support Specialist 09/13/17 documented as of this encounter
--- OUTSIDE RECORDS SUMMARY | 2022-02-14 17:00 | XMS_ITS | Encounter Summary ---
:1970 Author Organization [employer] Address [address] [place] [address] Care Team Providers Name Role Phone Gagandeep Hinojosa MD Primary Care Provider Reason for Visit Reason Comments Patient Care Coordination Encounter Details Date Type Department Care Team Description 06/30/2020 Care Coord Judy Luke RN Patient Care Phone Medicine 1415 [facility] Coordination [address] [place] [address] [phone] Social History Tobacco Use Types Packs/Day Years [...] health. Rustam reports he has been at [facility] and plans to transfer to an IR facility in [place] tomorrow. He does not know where he will find housing after that time. - Rustam was approved for [employer] PAP and has a 3 month supply of Tresiba, Novolog, and insulin pen needles in the refrigerator for whenever he is discharged to stable housing. He will require eduction on how to transition from Relion Regular to Novolog insulin. ICATION DISTRIBUTOR documented in this encounter Plan of Treatment Not on filedocumented as of this encounter Visit Diagnoses Not on filedocumented in this encounter Care Teams Lithographic Camera Operator Relationship Specialty Start Date End Date Gagandeep Hinojosa MD PCP - General 05/17/[address] [place], [place] [address] Rodriguez [address] Vane Zarate Psychiatrist Psychiatry 03/22/12 [facility] Mental Health Psychotherapist 08/04/17 [facility] Health Care Coach 09/13/17 documented as of this encounter
--- OUTSIDE RECORDS SUMMARY | 2022-02-14 17:00 | XMS_ITS | Encounter Summary ---
:1970 Author Organization [facility] Address [address] [place] [address] Care Team Providers Name Role Phone Gagandeep [...] Medicine MD succinate (TOPROL XL) [address] MG 24 hour release [place] Vigil [address] [place] VIGIL [address] tablet [Pharmacy Med [phone] (Wo rk) Name: Metoprolol Succinate ER 50 [...] Patient no longer receiving care at [facility]; pt stated switched providers due to living in [place] now. Frontline: Route to Refill Wizard Admin Pool-PN (P [id number]) Shayy Haynes RN - 08/27/2021 2:22 PM CDT Further Assistance Needed on Refill from Graphic Pre Press Trades Worker Patient is overdue for Office visit. An [...] MICHAUD) Next scheduled visit: None Powered by Academia.edufinch by Nginx, Reference: [id number], 08/25/2021 9:39:07 AM CDT, Pool:MANUEL LANDACHIP ([id number]) documented in this encounter Plan of Treatment Not on filedocumented as of this encounter Visit Diagnoses Diagnosis Essential hypertension (HRC) Unspecified essential hypertension documented in this encounter Care Teams Wastewater Supervisor Relationship Specialty Start Date End Date Gagandeep Michaud MD PCP - General 05/17/12 1415 [facility] [address] Vane Zarate Psychiatrist Psychiatry 03/22/12 [facility] Psychotherapist 08/04/17 [facility] Associate Professor Of Surgery 09/13/17 documented as of this encounter
--- OUTSIDE RECORDS SUMMARY | 2022-02-14 17:00 | XMS_ITS | Encounter Summary ---
:1970 Author Organization [employer] Address [address] [place] [address] Care Team Providers Name Role Phone Gagandeep Michaud MD Primary Care Provider Reason for Visit Reason Comments Refill amLODIPine (NORVASC) 5 MG ta blet [Pharmacy Med Name: amLODIPine Besylate 5 MG Tablet] Encounter Details Date Type Department Care Team Description 09/02/2020 Refill Gagandeep Storm, Refil l (amLODIPine Medicine (NORVASC) 5 MG tablet [address] [facility] [address] [Pharmacy Med Name: [place] Vigil [address] [place] VIGIL [address] amLODIPine Besylate 5 MG [phone] (Wo rk) Tablet]) Social History Tobacco Use [...] MICHAUD) Next scheduled visit: None Powered by As[employer]ée by [employer], Reference: [id number], 09/02/2020 1:07:36 PM CDT, Pool:MANUEL LANDAILL ([id number]) documented in this encounter Plan of Treatment Not on filedocumented as of this encounter Visit Diagnoses Not on filedocumented in this encounter Care Teams Interior Wirer Relationship Specialty Start Date End Date Gagandeep Michaud MD PCP - General 05/17/12 1415 [facility] [place] [address] Vane Zarate Psychiatrist Psychiatry 03/22/12 [facility] Health Psychotherapist 08/04/17 [facility] Rag Sorter 09/13/17 documented as of this encounter
--- OUTSIDE RECORDS SUMMARY | 2022-02-14 17:00 | XMS_ITS | Encounter Summary ---
:1970 Author Organization [employer] Address [address], [place] [address] Care Team Providers Name Role Phone Gagandeep Hinojosa MD Primary Care Provider Reason for Visit Reason Comments Post Hospital Discharge Follow Up ACO Post DC Encounter Details Date Type Department Care Team Description 06/20/2020 Telephone [facility] Gagandeep Hinojosa, Post Hospital Discharge Medicine MD Follow Up (ACO Post DC) 1415 [facility] . [address] [place] [address] [place] [address] [phone] (Wo rk) Social History Tobacco Use Types [...] for details. Rustam has been working with [facility] Care Coordination. Pt shared that he has concerns regarding housing, he will no longer have as of July 22, 2020. He has tried to get into [employer] housing but this has not worked out. [...] treat chronic groin growths with liquid nitrogen. Service Parts Coordinator will notify Care Coordination and PCP of Pt's questions. PRODUCT documented in this encounter Plan of Treatment Not on filedocumented as of this encounter Visit Diagnoses Not on filedocumented in this encounter Care Teams Data Recovery Planner Relationship Specialty Start Date End Date Gagandeep Hinojosa MD PCP - General 05/17/[address] [place], [place] [address] [address] Vane Zarate Psychiatrist Psychiatry 03/22/12 [facility] Psychotherapist 08/04/17 [facility] Chief Analytics Officer 09/13/17 documented as of this encounter
--- OUTSIDE RECORDS SUMMARY | 2022-02-14 17:00 | XMS_ITS | Encounter Summary ---
:1970 Author Organization [facility] Address [address] [place] [address] Care Team Providers Name Role Phone Gagandeep Michaud MD Primary Care Provider Reason for Visit Reason Comments Refill metFORMIN (GLUCOPHAGE) 1000 MG tablet [Pharmacy Med Name: metFORMIN HCl 1000 MG Tablet]; lisinopril (ZEST RIL) 5 MG tablet [Pharmacy Med Name: Lisinopril 5 MG Tablet] Encounter Details Date Type Department Care Team Description 09/02/2020 Refill [place] [facility] Gagandeep Michaud, Refil l (metFORMIN Medicine MD (GLUCOPHAGE) [address] tablet [[place] [address] [place] [address] Name: metFORMIN HCl 1000 [phone] (Wo rk) MG Tablet]; lisinopril (ZESTRIL) 5 [...] ENCOUNTER Routing to refill Pool Interface, Out SureAmind Prov Query - 09/03/2020 12:43 PM CDT [...] MICHAUD) Next scheduled visit: None Powered by [employer], Reference: [id number], 09/03/2020 12:43:21 PM CDT, Pool: PN REFILL WIZARD ADMIN ([id number]) documented in this encounter Plan of Treatment Not on filedocumented as of this encounter Visit Diagnoses Not on filedocumented in this encounter Care Teams Rooter Operator Relationship Specialty Start Date End Date Gagandeep Michaud MD PCP - General 05/17/12 1415 [facility] [place] [address] Vane Zarate Psychiatrist Psychiatry 03/22/12 [facility] Psychotherapist 08/04/17 [facility] Vocal Performer 09/13/17 documented as of this encounter
--- OUTSIDE RECORDS SUMMARY | 2022-02-14 17:01 | XMS_ITS | Encounter Summary ---
:1970 Author Organization [employer] Address [address] [place] [address] Care Team Providers Name Role Phone Gagandeep Hinojosa MD Primary Care Provider Encounter Details Date Type Department Care Team Description 12/04/2019 Lab Visit [facility] Routine general medical exam ination at health care facility (Primary Dx); [address] Type 2 diabetes mellitus wit h diabetic polyneuropathy, with long-term current use of insulin (HRC); [place] [address] Uncontrolled type 2 diabetes mellitus with hyperglycemia ([facility]); [phone] Diabetes mellit us with complication ([facility]); Diabetes mellit us with neurological manifestations, uncontrolled ([facility]); Diabetic polyne uropathy associated with type 2 diabetes mellitus ([facility]); ASHD (arteriosc lerotic heart disease) Social [...] P athologist Signature Albumin, 351.2 mg/L 12/04/2019 [facility] Urine, Random 3:54 PM CDT LABORATORY Creatinine, 106 >20 mg/dL 12/04/2019 [place] Urine, Random 3:54 PM CDT LABORATORY Albumin/Creati 331 (H) <30 mg/g 12/04/2019 [facility] nine Ratio, 3:54 PM CDT LABORATORY Urine, Random Specimen Anatomical Collection Method Collection Time Receive d Time (Source) Location / / Volume Laterality Urine Non-blood 12/04/2019 10:10 12/04/2019 Collection / AM CDT 10:10 AM CDT Unknown Gagandeep Hinojosa MD LAB_1 Performing Organization Address [facility]/ZIP Code Phon e Number [facility] [address] [place], [place] [phone] (ABNORMAL) Lipid Panel and Direct LDL(If Needed) - in 3 months (12/04/2019 10:06 AM CDT) Patholo gist Method Time Signature Cholesterol 116 0 - 199 12/04/2019 [facility] mg/dL 4:03 PM CDT LABORATORY Triglyceride 137 <=149 12/04/2019 [facility] mg/dL 4:03 PM CDT LABORATORY HDL Cholesterol 35 (L) >=40 mg/dL 12/04/2019 [facility] 4:03 PM CDT LABORATORY LDL, Calculated 54 <130 mg/dL 12/04/2019 [facility] 4:03 PM CDT LABORATORY Non HDL Chol, 81 mg/dL 12/04/2019 [place] Calculated 4:03 PM CDT LABORATORY Cholesterol/HDL 3.3 12/04/2019 [facility] Ratio 4:03 PM CDT LABORATORY Hours Fasting 12 12/04/2019 [place] 4:03 PM CDT LABORATORY Specimen Anatomical Collection Method / Collection Time Recei abimael Time (Source) Location / Volume Laterality Blood Venipuncture / 12/04/2019 10:06 0 Unknown AM CDT 10:06 AM CDT Gagandeep Hinojosa MD LAB_1 Performing Organization Address City/[facility]/ZIP Code Phon e Number [facility] [address] [place], [place] [phone] [facility] [address] [place] [phone], [facility] Creatinine / GFR - in 3 months (12/04/2019 10:06 AM CDT) P athologist Signature Creatinine 0.80 0.73 - 12/04/2019 [facility] 1.18 mg/dL 4:03 PM CDT LABORATORY GFR, Estimated >60 >60 12/04/2019 [place] mL/min/1.7 4:03 PM CDT LABORATORY 3m2 Specimen Anatomical Collection Method / Collection Time Recei abimael Time (Source) Location / Volume Laterality Blood Venipuncture / 12/04/2019 10:06 0 Unknown AM CDT 10:06 AM CDT Gagandeep Hinojosa MD LAB_1 Performing Organization Address City/[facility]/ZIP Code Phon e Number [facility] [address] [place] [phone] (ABNORMAL) POCT Glycosylated Hemoglobin (HB A1C) - in 3 months (12/04/2019 10:06 AM CDT) Patholo gist Method Time Signature Hemoglobin A1C 11.3 (H) <=5.6 % 12/04/2019 [place] (Rapid) 10:15 AM CDT LABORATORY Specimen Anatomical [...] MD LAB_1 Performing Organization Address [facility] Phon e Number [facility] [address] [place] [address] Extra Gold/SST Tube (12/04/2019 10:06 AM CDT) [facility] gist Method Time Signature Extra Specimen 12/04/2019 [place] Gold/SST Tube will be held 12:00 PM CDT LABORATORY Drawn for 5 days Specimen Anatomical Collection Method / Collection Time Recei abimael Time (Source) Location / Volume Laterality Blood Venipuncture / 12/04/2019 10:06 0 Unknown AM CDT 10:06 AM CDT Gagandeep Hinojosa MD LAB_1 Performing Organization Address City/[facility]/ZIP Code Phon e Number [facility] [address] [place] [address] documented in this encounter Visit Diagnoses Diagnosis Routine general medical examination at [facility] facility - Primary Routine general medical examination at a [facility] facility Type 2 diabetes mellitus with diabetic [...] mellitus ([facility]) ASHD (arteriosclerotic heart disease) ([facility]) Coronary atherosclerosis of unspecified type of vessel, nikolai or graft documented in this encounter Care Teams Cloud Engagement Partner Relationship Specialty Start Date End Date Gagandeep Hinojosa MD PCP - General 05/17/12 [address] [place] [address] Vane Zarate Psychiatrist Psychiatry 03/22/12 [facility] Psychotherapist 08/04/17 [facility] Plastics Fitter 09/13/17 documented as of this encounter
--- OUTSIDE RECORDS SUMMARY | 2022-02-14 17:01 | XMS_ITS | Encounter Summary ---
:1970 Author Organization [employer] Address [address], [place] [address] Care Team Providers Name Role Phone Gagandeep Hinojosa MD Primary Care Provider Reason for Visit Reason Comments FOLLOW-UP,DIABETES Encounter Details Date Type Department Care Team Description 10/30/2019 Care Coord Office Judy Luke RN FOLLOW-UP,DIABETES Visit Medicine [facility] . [place] [address] [place] [phone] [address] Social History Tobacco Use Types Packs/Day Years [...] RN - 10/30/2019 11:00 AM CDT RN Ironer Visit Pt: Timur Krishnamurthy Referred by: Gagandeep [...] to all BG readings >200. I reminded Rustam that recording these foods will help him [...] filedocumented in this encounter Care Teams Business Analyst Ecommerce Relationship Specialty Start Date End Date Gagandeep Hinojosa MD PCP - General 05/17/12 [address] [facility] [place] [address] Vane Zarate Psychiatrist Psychiatry 03/22/12 [facility] Psychotherapist 08/04/17 [facility] Evp General Counsel 09/13/17 documented as of this encounter
--- OUTSIDE RECORDS SUMMARY | 2022-02-14 17:01 | XMS_ITS | Encounter Summary ---
:1970 Author Organization [facility] Address [address], [place] [address] Care Team Providers Name Role Phone Gagandeep Hinojosa MD Primary Care Provider Reason for Visit Reason Comments DEPRESSION Encounter Details Date Type Department Care Team Description 01/19/2020 Nurse Triage [facility] Gagandeep Hinojosa MD DEPRESSION [address] [place] [address] [phone] Social History Tobacco Use Types Packs/Day Years [...] (mental health worker, psychiatrist, etc.) Protocols used: [id number] Problem list reviewed as related to this call. documented in this encounter Plan of Treatment Not on filedocumented as of this encounter Visit Diagnoses Not on filedocumented in this encounter Care Teams Maintenance Worker Swimming Pool Relationship Specialty Start Date End Date Gagandeep Hinojosa MD PCP - General 05/17/[address] [place], [place] [address] [address] Vane Zarate Psychiatrist Psychiatry 03/22/12 [facility] Psychotherapist 08/04/17 [facility] Associate Director Regulatory Affairs 09/13/17 documented as of this encounter
--- OUTSIDE RECORDS SUMMARY | 2022-02-14 17:01 | XMS_ITS | Encounter Summary ---
:1970 Author Organization [facility] Address [address] [place] [address] Care Team Providers Name Role Phone Gagandeep Hinojosa MD Primary Care Provider Reason for Visit Reason Comments QUESTIONS, GENERAL Encounter Details Date Type Department Care Team Description 05/10/2020 Telephone [facility] Gagandeep Hinojosa, QUESTIONS, GENERAL [address] [facility] [address] [place] [address] [place] [address] (Wo rk) Social History Tobacco [...] . Provided pt with number as requested. ROOM HELPER documented in this encounter Plan of Treatment Not on filedocumented as of this encounter Visit Diagnoses Not on filedocumented in this encounter Care Teams Supervisor Polishing Relationship Specialty Start Date End Date Gagandeep Hinojosa MD PCP - General 05/17/12 1415 [facility] [place] [address] Vane Zarate Psychiatrist Psychiatry 03/22/12 [facility] Psychotherapist 08/04/17 [facility] Biomedical Repair Technician 09/13/17 documented as of this encounter
--- OUTSIDE RECORDS SUMMARY | 2022-02-14 17:01 | XMS_ITS | Encounter Summary ---
:1970 Author Organization [email or web address] Address [address] [place] [address] Care Team Providers Name Role Phone Gagandeep Hinojosa MD Primary Care Provider Reason for Referral Consult/Transfer Care (Routine) - Closed Specialty Diagnoses / Procedures Referred By Contact Refer red To Contact Diagnoses Uncontrolled type 2 diabetes mellitus with hyperglycemia (HRC) Gagandeep Hinojosa MD [address] [place] [address] Referral ID Status Reason Start Date Expiration Date Visits Requ ested Visits Authorized [id number] Closed 01/22/2020 07/20/2020 1 1 Scheduling Instructions [...] Department Care Team Description 01/22/2020 Office Visit Ggaandeep Storm (Primary Dx); Romario Rubio MD Warts, genital; 1415 [facility] . [facility]5 [facility] Uncontrolled type 2 diabetes mellitus with hyperglycemia (HRC) [place] [address] [phone] [place] [address] Social History Tobacco Use Types Packs/Day Years [...] DESTRUCT BENIGN SKIN LESIONS UP TO 14 [address] 3. Uncontrolled type 2 diabetes mellitus with hyperglycemia ([facility]) E11.65 Optometry Consult-Adult/Peds CHIEF COMPLAINT: Chief Complaint Patient presents with ??? DEPRESSION ??? ANXIETY ??? Growth on penis SUBJECTIVE : Timur Krishnamurthy is an 50 y.o. male who presents for numerous concerns. He is having some increased anxiety because of ongoing divorce process difficulty finding housing. Housing difficulties are mainly financial rather than availability. He is working with his social sciences instructor and his county worker for available facilities. [...] start a video chat service with the [facility] psychiatrists and psychologists, but this is not [...] Diagnosis Date Noted ??? Non-proliferative diabetic retinopathy ([facility]) 05/02/2019 ??? Hyponatremia 01/16/2018 ??? Tinea versicolor 07/18/2015 ??? Tobacco use disorder ([facility]) 10/26/2012 ??? Anemia 05/02/2012 Overview Note: Anemia, unspecified ??? Microalbuminuria 02/04/2012 ??? [place], old ([facility]) 09/16/2011 ??? History of PTCA 09/16/2011 Overview Note: History of PTCA 04/2011 BMS RCA ??? Obesity, Class I, BMI 30-34.9 ([facility]) 09/16/2011 Overview Note: Body mass index is 31.16 kg/(m^2). ??? Hyperlipidemia with target LDL less than 70 06/08/2011 Overview Note: Hyperlipidemia LDL goal < 70 ??? ASHD (arteriosclerotic heart disease) 05/04/2011 ??? Erectile dysfunction 01/22/2011 Overview Note: side effect Risperdal ??? Type 2 diabetes mellitus, uncontrolled ([facility]) 12/11/2010 Overview Note: Type II or unspecified type diabetes mellitus without mention of complication, uncontrolled ([facility]) ??? Dermatophytosis of body 09/04/2010 Class: Historical Overview Note: Tinea Corporis ??? Coronary atherosclerosis 12/22/2009 Overview Note: LW Modifier: mod RCA, negative nuclear stress test ; CAD ??? Nonspecific abnormal results of liver function study 12/22/2009 Overview Note: Liver Function Tests Abnormal ??? Bipolar I disorder ([facility]) 09/15/2005 Overview Note: LW Onset: [id number] ; Bipolar I Dis FAMILY HISTORY OR [...] 200 Strip 3 ??? Continuous Blood Gluc Painter Hand (GetHired.comSTYLE TALAT 2 READER SYSTM) ADÁN Use to scan blood sugars per cell tuber hand instructions. 1 Each 0 ??? Continuous Blood Gluc Sensor (FREESTYLE TALAT 14 DAY SENSOR) [facility] Use as directed. Change every 14 days. [...] 1 Tablet by mouth. 01/16/2018: Received from: [facility] Received Sig: Take 1 tablet by [...] controlled, fluent Affect: Very neutral Thought content: [place], fixated on finding housing. Thought process: Logical, analytical, but quite fixated on housing Perception: Seems to be appropriate Intellectual capability: Below average Insight: Below average LABS : ASSESSMENT /PLAN ICD-10-CM 1. Anxiety F41.9 busPIRone (BUSPAR) 10 MG tablet 2. Warts, genital A63.0 DESTRUCT BENIGN SKIN LESIONS UP TO 14 [address] 3. Uncontrolled type 2 diabetes mellitus with [...] ([facility]) documented in this encounter Care Teams Pest Control Worker Relationship Specialty Start Date End Date Gagandeep Hinojosa MD PCP - General 05/17/[address] [place] [address] Vane Zarate Psychiatrist Psychiatry 03/22/12 [facility] Psychotherapist 08/04/17 [facility] Production Roustabout 09/13/17 documented as of this encounter
--- OUTSIDE RECORDS SUMMARY | 2022-02-14 17:01 | XMS_ITS | Encounter Summary ---
:1970 Author Organization [facility] Address [address] [place] [address] Care Team Providers Name Role Phone Gagandeep Hinojosa MD Primary Care Provider Encounter Details Date Type Department Care Team Description 04/10/2020 Notes/Orders [facility] MasonkeeAlhaji Co ntact with james Belcher MD exposure to viral [address] [place] [address] [phone] Social History Tobacco Use Types Packs/Day Years [...] 2019 Novel Coronavirus (COVID-19) (04/10/2020 10:29 AM PROCESSES CHEMICAL DESIGN ENGINEER) [facility] Method Time Signature SARS-CoV-2 by Not Detected 04/11/2020 [facility] PCR 11:15 PM PROCESSES CHEMICAL DESIGN ENGINEER LABORATORIES Comment: INTERPRETIVE INFORMATION: SARS-CoV-2 ([place] VID-19) [...] complia nce with this authorization, please visit [email or web address] for more information and to [...] collection, transport, storage, and handling. Performed by [email or web address], [address] [place] [address] www.[email or web address], Barbara Mckeon MD, La b. Director SARS Cov-2 Source Nares, left and 04/11/2020 11:15 PM PROCESSES CHEMICAL DESIGN ENGINEER Box right Specimen Anatomical Collection Method Collection Time Receive d Time (Source) Location / / Volume Laterality Swab (Source Non-blood 04/10/2020 10:29 04/10/2020 Required) Collection / AM PROCESSES CHEMICAL DESIGN ENGINEER 11:56 AM PROCESSES CHEMICAL DESIGN ENGINEER Unknown Alhaji Egan MD LAB_1 Performing Organization Address City/State/ZIP Code Phon e [address] [place], [place] [address] documented in this encounter Visit Diagnoses Diagnosis Contact with or exposure to viral diseas e Contact with or exposure to other viral diseases documented in this encounter Care Teams Biology Lecturer Relationship Specialty Start Date End Date Gagandeep Hinojosa MD PCP - General 05/17/12 [address] [place] [address] Vane Zarate Psychiatrist Psychiatry 03/22/12 [facility] Psychotherapist 08/04/17 [facility] Lacquer Spray Booth Operator 09/13/17 documented as of this encounter
--- OUTSIDE RECORDS SUMMARY | 2022-02-14 17:01 | XMS_ITS | Encounter Summary ---
:1970 Author Organization [employer] Address [address], [place] [address] Care Team Providers Name Role Phone Gagandeep Hinojosa MD Primary Care Provider Reason for Visit Reason Comments FOLLOW-UP,DIABETES Encounter Details Date Type Department Care Team Description 12/04/2019 Care Coord Office Judy Luke RN FOLLOW-UP,DIABETES Visit Medicine [address] [place] [address] . [place] Ger[place] [address] [place] V[place]QUE[place] [phone] [address] Social History Tobacco Use Types Packs/Day Years [...] to review sensor data, glucose patterns. RN Abrasive Grader Visit Pt: Timur Krishnamurthy Referred by: Gagandeep [...] Rustam is over income for Medical Assistance, [employer], as well as, pharmaceutical assistance. Blood Glucose [...] Primary documented in this encounter Care Teams Music Box Mechanic Relationship Specialty Start Date End Date Gagandeep Hinojosa MD PCP - General 05/17/12 1415 [facility] [place] [address] Vane Zarate Psychiatrsamantha Psychiatry 03/22/12 [facility] Psychotherapist 08/04/17 [facility] Clinical Professor 09/13/17 documented as of this encounter
--- OUTSIDE RECORDS SUMMARY | 2022-02-14 17:01 | XMS_ITS | Encounter Summary ---
:1970 Author Organization [employer] Address [address] [address] Care Team Providers Name Role Phone Gagandeep Hinojosa MD Primary Care Provider Reason for Visit Reason Comments COVID Test Results Encounter Details Date Type Department Care Team Description 04/14/2020 Telephone [facility] Gagandeep Hinojosa, CO VID Test Results Medicine [address] [place], [place] [address] [place] [address] [phone] (Wo rk) Social History Tobacco Use Types [...] your PCP or complete a visit at [facility]. ??? If you develop shortness of breath [...] their results, a printout is available on [employer] or a letter has been sent via mail (if inactive on [employer]). Mikaela Saldivar RN 04/14/2020, 12:16 PM ICAL ASSIGNER documented in this encounter Plan of Treatment Not on filedocumented as of this encounter Visit Diagnoses Not on filedocumented in this encounter Care Teams Experimental Technician Relationship Specialty Start Date End Date Gagandeep Hinojosa MD PCP - General 05/17/[address] [place], [place] [address] [address] Vane Zarate Psychiatrsamantha Psychiatry 03/22/12 [facility] Psychotherapist 08/04/17 [facility] Clinical Orthoptist 09/13/17 documented as of this encounter
--- OUTSIDE RECORDS SUMMARY | 2022-02-14 17:01 | XMS_ITS | Encounter Summary ---
:1970 Author Organization [facility] Address [address], [place] [address] Care Team Providers Name Role Phone Gagandeep Hinojosa MD Primary Care Provider Reason for Visit Reason Comments Appointment Encounter Details Date Type Department Care Team Description 01/01/2020 Telephone [facility] Gagandeep Hinojosa MD Appointment 1415 [facility] . [address] [place] [address] [place] [address] [phone] (Wo rk) Social History Tobacco Use Types [...] message for patient to return call to [phone]. Carolyn Johnson - 01/01/2020 3:58 PM CDT [...] on filedocumented in this encounter Care Teams Inside Sales Consultant Relationship Specialty Start Date End Date Gagandeep Hinojosa MD PCP - General 05/17/[address] [place] [address] [place] [address] Vane Zarate Psychiatrist Psychiatry 03/22/12 [facility] Psychotherapist 08/04/17 [facility] Mma Fighter 09/13/17 documented as of this encounter
--- OUTSIDE RECORDS SUMMARY | 2022-02-14 17:01 | XMS_ITS | Encounter Summary ---
:1970 Author Organization [facility] Address [address] [place] [address] Care Team Providers Name Role Phone Gagandeep Michaud MD Primary Care Provider Reason for Visit Reason Comments Refill risperiDONE (RISPERDAL) 3 MG tablet [Pharmacy Med Name: RISPERIDONE 3MG TABS] Encounter Details Date Type Department Care Team Description 05/08/2020 Refill Gagandeep Storm, Refrose mary l (risperiDONE Medicine MD (RISPERDAL) 3 MG tablet [address] [Pharmacy Med Name: [place] [address] [place] [address] RISPERIDONE 3MG TABS]) [phone] (Wo rk) Social History Tobacco Use Types [...] found) Next scheduled visit: None Powered by [employer], Reference: [id number], 05/08/2020 12:39:25 PM RIPSAWYER, Pool: MANUEL MOORE ([id number]) AWYER documented in this encounter Plan of Treatment Not on filedocumented as of this encounter Visit Diagnoses Not on filedocumented in this encounter Care Teams Airport Operations Crew Member Relationship Specialty Start Date End Date Gagandeep Michaud MD PCP - General 05/17/[address] [place] [address] [place] [address] Vane Zarate Psychiatrist Psychiatry 03/22/12 [facility] Psychotherapist 08/04/17 [facility] Meat Apprentice 09/13/17 documented as of this encounter
--- OUTSIDE RECORDS SUMMARY | 2022-02-14 17:01 | XMS_ITS | Encounter Summary ---
:1970 Author Organization [employer] Address [address] [address] Care Team Providers Name Role Phone Gagandeep Hinojosa MD Primary Care Provider Reason for Visit Reason Comments FOLLOW-UP,DIABETES Encounter Details Date Type Department Care Team Description 06/12/2020 Care Coord Office Judy Luke RN FOLLOW-UP,DIABETES Visit [address] [place] [address] [place] [phone] [address] Social History Tobacco Use Types Packs/Day Years [...] 80-180 ?? Reji's direct phone number is [phone], after July 03 SPERSON HANDBAGS documented in this encounter Progress Notes Judy Pittman RN - 06/12/2020 11:00 AM CST RN Regional Economic Liaison Visit Pt: Timur Mendozaathers Referred by: Gagandeep [...] [facility] and had a hard time [...] stop accruing medical costs at [facility], once he is approved. Rustam will need to reapply annually, unless of course, he gets MA in the future. In the meantime, Rustam also applied for [facility] Financial Assistance. I emailed a scanned copyof Rustam's bank statement to Reina Marsh, Social Worker Palliative Care. Housing Rustam states his current anxiety revolves around his living situation, a room he rented on [employer]. He was told he has to move out by 06/26/20. Rustam has been working with his Glue Mixer, Han Arshad, who helped him apply for an IRTS in [place] where he could stay for up to 30-90 days, but he hasn't heard if he has been approved. Because his housing isn't stable at this time, I requested to have Arina and Reina mail any correspondence/cards to Lesly Rodrigues, [facility] Regional Economic Liaison at [facility], so it doesn't get lost and she can pass it on to Rustam. Medication Rustam was recently sent to a Crisis Center in [place] where they provided a supply of Tresiba [...] Jeysons insulin shipped directly to [facility] where we can hold onto it for him until he has a stable place to stay. Blood Glucose Rustam is using a Revel Touchyle Bharath CGM. He receives his supplies and assistance from [employer]. Rustam did not bring his reader today and does not have access to a computer to utilize [employer]. He receives help with applying his sensors [...] Rustam provided the contact information for his Glue Mixer and requested I call him directly to [...] leave to gather more paperwork for his Glue Mixer. I will notify Rustam when his insulin arrives and schedule a follow up visit. Family/social support: Patient attended today's visit alone. He currently lives alone. Current activity regimen: none Patient barrier(s) to learning identified: Finance, Emotional, Cognitive and Family support. BG Goals: [facility] Goal <7 [...] address to clinic address for [employer], [employer], [employer], and [employer]S. Requested refill of Bharath Sensors that are due in 06/3020. Left detailed message for MG Jasper Glue Mixer regarding Rustam's current needs. Will notify Rustam when [employer] insulin supply arrives. Rustam to call if symptoms of hypoglycemia or readings < 70 mg/dL. Rustam verbalized understanding and agreed with plan of care and follow up. SPERSON HANDBAGS Judy Pittman RN - 06/12/2020 11:00 AM CST Tresiba U200, Novolog, and Novofine needles received from [facility]. Medication entered into [facility] and verified by Dr Hinojosa. Notified Rustam the medication is being store in the Injection Room refrigerator. Scheduled follow up on 06/25/20. SPERSON HANDBAGS Judy Pittman RN - 06/12/2020 11:00 AM CST Han Arshad is returning my call. He states he was successful in getting Rustam MA starting yesterday, but notes he has a $900/month spend-down. Han also reports he was notified by Julian, Director of the IRTS Program in [place], that they are not going to accept [...] in addition to stable housing. Both the [place] and [place] IRTS facilities have wait lists for 2-4 weeks. [facility] does have an immediate opening, however Rustam may not be able to afford the cost with only his SSI and MA. SPERSON HANDBAGS documented in this encounter Plan of Treatment Not on filedocumented as of this encounter Visit Diagnoses Diagnosis Uncontrolled type 2 diabetes mellitus wi th hyperglycemia (HRC) - Primary documented in this encounter Care Teams Roll Edge Stitcher Hand Relationship Specialty Start Date End Date Gagandeep Hinojosa MD PCP - General 05/17/12 [facility]5 [place] [address] Vane Zarate Psychiatrist Psychiatry 03/22/12 [facility] Mental Health Psychotherapist 08/04/17 [facility] Glue Mixer 09/13/17 documented as of this encounter
--- OUTSIDE RECORDS SUMMARY | 2022-02-14 17:01 | XMS_ITS | Encounter Summary ---
:1970 Author Organization [employer] Address [address] [place] [address] Care Team Providers Name Role Phone Gagandeep Michaud MD Primary Care Provider Reason for Visit Reason Comments Refill QUEtiapine (SEROQUEL) 200 MG tablet [Pharmacy Med Name: QUETIAPINE FUMARATE 200MG TABS] Encounter Details Date Type Department Care Team Description 03/02/2020 Refill Gagandeep Storm, Rochelle l (QUEtiapine Medicine MD (SEROQUEL) 200 MG tablet [address] [facility] [address] [Pharmacy Med Name: [place] [address] [place] [address] QUETIAPINE FUMARATE [phone] (Wo rk) 200MG TABS]) Social History Tobacco [...] MICHAUD) Next scheduled visit: None Powered by [employer], Reference: [id number], 03/02/2020 10:34:23 AM PRESS LOADER, Pool: MANUEL MOORE ([id number]) S LOADER documented in this encounter Plan of Treatment Not on filedocumented as of this encounter Visit Diagnoses Not on filedocumented in this encounter Care Teams Shop Teacher Relationship Specialty Start Date End Date Gagandeep Michaud MD PCP - General 05/17/12 [facility] [place] [address] Vane Zarate Psychiatrist Psychiatry 03/22/12 [facility] Psychotherapist 08/04/17 [facility] Right Of Way Manager 09/13/17 documented as of this encounter
--- OUTSIDE RECORDS SUMMARY | 2022-02-14 17:01 | XMS_ITS | Encounter Summary ---
:1970 Author Organization [employer] Address [address] [place] [address] Care Team Providers Name Role Phone Gagandeep Hinojosa MD Primary Care Provider Reason for Visit Reason Onset Date Comments Follow-up Phone Visit 01/30/2020 Encounter Details Date Type Department Care Team Description 01/30/2020 Telemedicine [facility] Gagandeep Hinojosa (Primary Dx) Romario Rubio MD [address] [place] [address] Ave [phone] [place] [address] Social History Tobacco Use [...] unspecified documented in this encounter Care Teams Director Of Acquisitions Relationship Specialty Start Date End Date Gagandeep Hinojosa MD PCP - General 05/17/12 [facility] [place] [address] Vane Zarate Psychiatrist Psychiatry 03/22/12 [facility] Psychotherapist 08/04/17 [facility] Bonded Structures Repairer 09/13/17 documented as of this encounter
--- OUTSIDE RECORDS SUMMARY | 2022-02-14 17:01 | XMS_ITS | Encounter Summary ---
:1970 Author Organization [employer] Address [address] [place] [address] Care Team Providers Name Role Phone Gagandeep Hinojosa MD Primary Care Provider Reason for Visit Reason Comments Refill ONETOUCH DELICA lancets; blo od glucose (ONE TOUCH ULTRA BLUE) test strip; insulin regular (NOVOLIN R) 100 UNIT/ML injection Encounter Details Date Type Department Care Team Description 06/05/2020 Refill Gagandeep Storm, Refil l (ONETOUCH DELICA Medicine lancets; blood glucose [address] (ONE TOUCH ULTRA BLUE) [place] [address] [place] [address] test strip; insulin [phone] (Wo rk) regular (NOVOLIN R) 100 UNIT/ML [...] (Novolin R) And Insulin needles and syringes. TRIMMER Marga Leyva - 06/06/2020 9:24 AM CST [...] controlled refills) Please route to: Triage Pool TRIMMER Interface, Out Surescripts Prov Query - 06/05/2020 10:10 AM CST EDEN king Medication started: 06/09/2016 Last ordered by GAGANDEEP HIONJOSA F: 04/01/2020 (65 days ago) QTY: 300, [...] scheduled visit: None Age: 50 Powered by [email or web address], Reference: [id number], 06/05/2020 10:10:24 AM Jaxon GRANGER: REINA REFILL WIZARD ADMIN ([id number]) blood glucose (ONE TOUCH ULTRA BLUE) test [...] scheduled visit: None Age: 50 Powered by [employer], Reference: [id number], 06/05/2020 10:10:24 AM Jaxon GRANGER: PN REFILL WIZARD ADMIN ([id number]) insulin regular (NOVOLIN R) 100 UNIT/ML injection [...] HBA1C: 11.3 % on 12/04/2019 Powered by [employer], Reference: [id number], 06/05/2020 10:10:24 AM DIE TRIMMER Pool: PN REFILL WIZARD ADMIN ([id number]) Herlinda Smith - 06/05/2020 10:07 AM CST [...] refills) Please route to: Refill Pool (P [id number]) [place] FP Pool [place] Patients ONLY (P [id number]) SAMMI Laguerre ONLY (P [id number]) TRIMMER documented in this encounter Plan of [...] insulin documented in this encounter Care Teams Chemical Production Technician Relationship Specialty Start Date End Date Gagandeep Hinojosa MD PCP - General 05/17/12 [address] [facility] [place] [address] Vane Zarate Psychiatrist Psychiatry 03/22/12 [facility] Mental Health Psychotherapist 08/04/17 [facility] Labor And Delivery Registered Nurse 09/13/17 documented as of this encounter
--- OUTSIDE RECORDS SUMMARY | 2022-02-14 17:01 | XMS_ITS | Encounter Summary ---
:1970 Author Organization [employer] Address [address] [place] [address] Care Team Providers Name Role Phone Gagandeep Hinojosa MD Primary Care Provider Reason for Visit Procedure/Equipment (Routine) - Incomplete Specialty Diagnoses / Procedures Referred By Contact Refer red To Contact Diagnoses Pain of toe of right foot Gagandeep Hinojosa MD Procedures XR Toe Rt 2nd [address] [place] [address] Referral ID Status Reason Start Date Expiration Date Visits V isits Requested Authorized [id number] Incomplete 03/17/2020 06/16/2021 1 1 Encounter Details Date Type Department Care Team Description 03/17/2020 Ancillary Procedure [facility] Radiology Gagandeep Hinojosa Pain of toe of right [address] Rubio MD foot [address]. [address] [place] [address] Ave [phone] [place] [address] Social History Tobacco Use Types Packs/Day Years [...] of righ t Results for this VIEWS PRODUCE SHIPPER foot procedure are i n the results section. documented in this encounter Results XR Toe Rt 2nd 3 Views (03/17/2020 1:45 PM PRODUCE SHIPPER) Anatomical Region Laterality Modality Lower Extremity, Foot, Foot & Ankle Digi ora Radiography Specimen (Source) Anatomical Collection Method Collection Time Re ceived Time Location / / Volume Laterality 03/17/2020 1:34 PM PRODUCE SHIPPER Impressions 03/17/2020 2:23 PM PRODUCE SHIPPER COMPARISON: ??None. FINDINGS: ??Question impacted second pro [...] of pain. No additional fractures. No dislocation. Gaagndeep Hinojosa MD RAD GD documented in this encounter Visit Diagnoses Diagnosis Pain of toe of right foot Pain in limb documented in this encounter Care Teams Aviation Metalsmith Relationship Specialty Start Date End Date Gagandeep Hinojosa MD PCP - General 05/17/12 [address] [place] [address] Vane Zarate Psychiatrsamantha Psychiatry 03/22/12 [facility] Mental Health Psychotherapist 08/04/17 [facility] Assistant Elementary Teacher 09/13/17 documented as of this encounter
--- OUTSIDE RECORDS SUMMARY | 2022-02-14 17:01 | XMS_ITS | Encounter Summary ---
:1970 Author Organization [employer] Address [address] [place] [address] Care Team Providers Name Role Phone Gagandeep Hinojosa MD Primary Care Provider Reason for Visit Reason Comments Financial Encounter Details Date Type Department Care Team Description 04/08/2020 Care Coord Office Judy Luke RN Financial Visit Medicine 14[address] [facility] 14[address] [facility] . [place] [address] [place] [address] [phone] Social History Tobacco Use Types Packs/Day Years [...] he also needs help with applying his Plot Project[employer] sensor. Insurance Rustam currently has Medicare, plus [...] Rustam receives all his care at a [facility] facility, he will not be financially responsible [...] Therefore, he would like to apply for [employer] to help with the cost of Tresiba [...] SHARED PLAN: Completed [employer] application. Completed [employer] PAP application. Bring Social Security Benefit letter and fax applications above. Scan BG readings, as directed. Come in to replace Bharath sensors every 14 days. Rustam verbalized understanding and agreed with plan of care and follow up. ISITION COST ESTIMATOR documented in this encounter Plan of Treatment Not on filedocumented as of this encounter Visit Diagnoses Not on filedocumented in this encounter Care Teams Body Specialist Relationship Specialty Start Date End Date Gagandeep Hinojosa MD PCP - General 05/17/12 [address] [facility] [place] [address] Vane Zarate Psychiatrist Psychiatry 03/22/12 [facility] Mental Health Psychotherapist 08/04/17 [facility] Clothing Patternmaker 09/13/17 documented as of this encounter
--- OUTSIDE RECORDS SUMMARY | 2022-02-14 17:01 | XMS_ITS | Encounter Summary ---
:1970 Author Organization [facility] Address [address], [place] [address] Care Team Providers Name Role Phone Gagandeep Hinojosa MD Primary Care Provider Reason for Referral Consult/Transfer Care (Routine) - Closed Specialty Diagnoses / Procedures Referred By Contact Refer red To Contact Diagnoses Complex care coordination Gagandeep Hinojosa MD [address] [place] [address] Referral ID Status Reason Start Date Expiration Date Visits Requ ested Visits Authorized [id number] Closed 06/09/2020 09/08/2021 1 1 Scheduling Instructions Your provider has recommended care coord ination. A care marine steam fitter helper will call you within two weeks. If you would like to s peak with someone sooner, please contact your primary care clinic. MAINTAINER Consult/Transfer Care (Routine) - Closed Specialty Diagnoses / Procedures Referred By Contact Refer red To Contact Diagnoses Warts, genital Gagandeep Hinojosa MD [address] [place] [address] Referral ID Status Reason Start Date Expiration Date Visits Requ ested Visits Authorized [id number] Closed 06/09/2020 09/08/2021 1 1 Scheduling Instructions Your provider has recommended an appoint ment with Jimena Quinn. You may call [phone] to schedule your appoi ntment. We suggest you call your health insurance company about your coverage an d benefits for this appointment. MAINTAINER Reason for Visit Reason Comments WARAutumn Lump Encounter Details Date Type Department Care Team Description 06/09/2020 Office Visit Yaritza Mirza Gagandeep Hinojosa g enital (Primary Dx); Romario Rubio MD Skin lesion; [address] [place] [address] [facility] Complex care coordination; Ave. Ave Bipolar I disorder (HRC); [place] [address] [place] Drug-induced extrapyramidal movement disorder [phone] [address] Social History Tobacco Use Types Packs/Day Years [...] Comments Blood Pressure 132/88 06/09/2020 4:43 PM LINE MAINTAINER Pulse 99 06/09/2020 4:43 PM LINE MAINTAINER Temperature - - Respiratory Rate - - Oxygen Saturation - - Inhaled Oxygen Concentration - - Weight 88.9 kg (196 lb) 06/09/2020 4:43 PM LINE MAINTAINER Height - - Body Mass Index 28.12 12/04/2019 10:49 AM CDT documented in this encounter Progress Notes Gagandeep Hinojosa MD - 06/09/2020 4:40 PM CST ICD-10-CM 1. Warts, genital A63.0 DESTRUCT BENIGN SKIN LESIONS UP TO 14 [address]248 Dermatology Consult-Adult/Peds 2. Skin lesion L98.9 3. [...] Just discharged from a crisis facility at [place] for acute on psychiatric crisis. Not suicidal, [...] Diagnosis Date Noted ??? Non-proliferative diabetic retinopathy ([facility]) 05/02/2019 ??? Hyponatremia 01/16/2018 ??? Tinea versicolor 07/18/2015 ??? Tobacco use disorder ([facility]) 10/26/2012 ??? Anemia 05/02/2012 Overview Note: Anemia, unspecified ??? Microalbuminuria 02/04/2012 ??? RI, old ([facility]) 09/16/2011 ??? History [...] 360 Tablet 3 ??? Continuous Blood Gluc Student Support Advisor (FREESTYLE TALAT 2 READER SYST) ADÁN Use to scan blood sugars per electrotyper apprentice instructions. 1 Each 0 ??? Continuous Blood Gluc Sensor (FREESTYLE TALAT 14 DAY SENSOR) [facility] Use as directed. Change every 14 days. [...] 1 Tablet by mouth. 01/16/2018: [facility] Sig: Take 1 tablet by [...] DESTRUCT BENIGN SKIN LESIONS UP TO 14 [address] Dermatology Consult-Adult/Peds 2. Skin lesion L98.9 Will [...] follow-up He has a visit with his residential child care counselor for on . Hopefully she can help with housing. Follow-up: 3 weeks MAINTAINER documented in this encounter Plan of Treatment Scheduled Referrals Name Type Priority Associated Diagnoses Order S [facility] Dermatology Referral Routine Warts, genital Ordered: 05/26 Consult-Adult/Peds documented as of this encounter Visit Diagnoses Diagnosis Warts, genital - Primary Condyloma acuminatum Skin lesion Unspecified disorder of skin and subcuta neous tissue Complex care coordination Bipolar I disorder (HRC) Bipolar I disorder, most recent episode (or current) unspecified Drug-induced extrapyramidal movement dis order (HRC) documented in this encounter Care Teams Curator Horticultural Museum Relationship Specialty Start Date End Date Gagandeep Hinojosa MD PCP - General 05/17/12 [facility]5 [facility] [place] [address] Vane Zarate Psychiatrist Psychiatry 03/22/12 [facility] Mental Health Psychotherapist 08/04/17 [facility] Club Director 09/13/17 documented as of this encounter
--- OUTSIDE RECORDS SUMMARY | 2022-02-14 17:01 | XMS_ITS | Encounter Summary ---
:1970 Author Organization [facility] Address [address], [place] [address] Care Team Providers Name Role Phone Gagandeep Hinojosa MD Primary Care Provider Encounter Details Date Type Department Care Team Description 04/10/[address] Contact with or [address] [place] [address] disease [phone] Social History Tobacco Use Types Packs/Day Years [...] with or Results for this CORONAVIRUS AM OPERATIONS SUPPORT ANALYST exposure to viral procedure are in disease the results section. documented in this encounter Results Asymptomatic - 2019 Novel Coronavirus (COVID-19) (04/10/2020 10:29 AM OPERATIONS SUPPORT ANALYST) [facility] Method Time Signature SARS-CoV-2 by Not Detected 04/11/2020 [facility] PCR 11:15 PM OPERATIONS SUPPORT ANALYST LABORATORIES Comment: INTERPRETIVE INFORMATION: SARS-CoV-2 ([place] VID-19) [...] complia nce with this authorization, please visit [email or web address] for more information and to access [...] collection, transport, storage, and handling. Performed by [employer], [address] [place] [address] [email or web address], Barbara Mckeon MD, La b. Director SARS Cov-2 Source Nares, left and 04/11/2020 11:15 PM OPERATIONS SUPPORT ANALYST [employer] right Specimen Anatomical Collection Method Collection Time Receive d Time (Source) Location / / Volume Laterality Swab (Source Non-blood 04/10/2020 10:29 04/10/2020 Required) Collection / AM OPERATIONS SUPPORT ANALYST 11:56 AM OPERATIONS SUPPORT ANALYST Unknown Alhaji Egan MD LAB_1 Performing Organization Address City/State/ZIP Code Phon e Number [facility] [address] [place], [place] [address] documented in this encounter Visit Diagnoses Diagnosis Contact with or exposure to viral diseas e Contact with or exposure to other viral diseases documented in this encounter Care Teams Filler Machine Operator Relationship Specialty Start Date End Date Gagandeep Hinojosa MD PCP - General 05/17/12 [address] [place] [address] Vane Zarate Psychiatrist Psychiatry 03/22/12 [facility] Psychotherapist 08/04/17 [facility] Loss Prevention Manager 09/13/17 documented as of this encounter
--- OUTSIDE RECORDS SUMMARY | 2022-02-14 17:01 | XMS_ITS | Encounter Summary ---
:1970 Author Organization [employer] Address [address] [place] [address] Care Team Providers Name Role Phone Gagandeep Hinojosa MD Primary Care Provider Reason for Visit Reason Comments NATHAN EH Encounter Details Date Type Department Care Team Description 01/07/2020 Office Visit [facility] Gagandeep Hinojosa g enital Medicine MD Joanne (Primary Dx) [facility] [address] [place] [address] Ave [phone] [place], [place] [address] Social History Tobacco Use [...] acuminatum documented in this encounter Care Teams Operating Systems Specialist Relationship Specialty Start Date End Date Gagandeep Hinojosa MD PCP - General 05/17/12 [address] [place] [address] Vane Zarate Psychiatrist Psychiatry 03/22/12 [facility] Psychotherapist 08/04/17 [facility] Machine Stacker 09/13/17 documented as of this encounter
--- OUTSIDE RECORDS SUMMARY | 2022-02-14 17:01 | XMS_ITS | Encounter Summary ---
:1970 Author Organization [employer] Address [address] [place] [address] Care Team Providers Name Role Phone Gagandeep Michaud MD Primary Care Provider Reason for Visit Reason Comments Refill Insulin Syringe-Needle U-100 (INSULIN SYRINGE 31G X 5/16) 31G X 5/16 1 ML Encounter Details Date Type Department Care Team Description 06/05/2020 Refill [facility] Gagandeep Michaud, Refil l (Insulin Medicine Syringe-Needle U-[address] (INSULIN SYRINGE [address] [place] [address] [place] [address] 5/16) 31G X 5/16 1 ML) [phone] (Wo rk) Social History Tobacco Use Types [...] prescriptions requested or ordered in this encounter TRICAL TRYOUT PERSON Interface, Out Aireon Prov Query - 06/05/2020 10:10 AM CST [...] found) Next scheduled visit: None Powered by [employer], Reference: [id number], 06/05/2020 10:10:25 AM ELK[facility] Pool: PN REFILL WIZARD ADMIN ([id number]) Herlinda Springer - 06/05/2020 10:10 AM CST [...] refills) Please route to: Refill Pool (P [id number]) [place] FP Pool [place] Patients ONLY (P [id number]) [facility] Laguerre ONLY (P [id number]) TRICAL TRYOUT PERSON documented in this encounter Plan of Treatment Not on filedocumented as of this encounter Visit Diagnoses Not on filedocumented in this encounter Care Teams Patch Setter Relationship Specialty Start Date End Date Gagandeep Michaud MD PCP - General 05/17/12 [facility] [place] [address] Vane Zarate Psychiatrist Psychiatry 03/22/12 [facility] Psychotherapist 08/04/17 [facility] Tower Foreman 09/13/17 documented as of this encounter
--- OUTSIDE RECORDS SUMMARY | 2022-02-14 17:01 | XMS_ITS | Encounter Summary ---
:1970 Author Organization [employer] Address [address] [place] [address] Care Team Providers Name Role Phone Gagandeep Hinojosa MD Primary Care Provider Reason for Visit Reason Comments LETTER NEEDED Encounter Details Date Type Department Care Team Description 03/12/[address] [facility] Gagandeep Hinojosa MD LETTER NEEDED 14[address] [facility] . [address] [place] [address] [place] [address] [phone] (Wo rk) Social History Tobacco Use Types [...] that med list is at the front office associate ready to be picked up Saumya Ordza - 03/12/2020 4:02 PM CST Forms & Letters What form/letter are you requesting? Pt would like medication list This letter/other is needed from: Gagandeep Hinojosa MD for linkage line How would you like to receive your completed letter/other? recreation attendant supervisor at the clinic Additional comments (related [...] contact you.) Please route to: BRENT Coates documented in this encounter Plan of Treatment Not on filedocumented as of this encounter Visit Diagnoses Not on filedocumented in this encounter Care Teams Oceanology Teacher Relationship Specialty Start Date End Date Gagandeep Hinojosa MD PCP - General 05/17/12 [facility] [place] [address] V[address] Zarate Psychiatrist Psychiatry 03/22/12 [facility] Psychotherapist 08/04/17 [facility] Groover Operator 09/13/17 documented as of this encounter
--- OUTSIDE RECORDS SUMMARY | 2022-02-14 17:01 | XMS_ITS | Encounter Summary ---
:1970 Author Organization [employer] Address [address], [place] [address] Care Team Providers Name Role Phone Gagandeep Michaud MD Primary Care Provider Reason for Visit Reason Onset Date Comments Refill 12/27/2019 risperiDONE (RISPERD AL) 3 MG tablet Encounter Details Date Type Department Care Team Description 12/27/2019 Refill [facility] Gagandeep Michaud, Refil l (risperiDONE Medicine MD (RISPERDAL) 3 MG tablet) 1415 [facility] . 1415 [place] [address] [place], [place] [address] (Wo rk) Social History Tobacco Use Types [...] MICHAUD) Next scheduled visit: None Powered by [employer], Reference: [id number], 12/27/2019 10:12:03 AM CDT, Pool: MANUEL MOORE ([id number]) documented in this encounter Plan of Treatment Not on filedocumented as of this encounter Visit Diagnoses Not on filedocumented in this encounter Care Teams Nutrition Helper Relationship Specialty Start Date End Date Gagandeep Michaud MD PCP - General 05/17/12 [facility]15 [facility] [address] Vane Zarate Psychiatrist Psychiatry 03/22/12 [facility] Psychotherapist 08/04/17 [facility] Insurance Manager 09/13/17 documented as of this encounter
--- OUTSIDE RECORDS SUMMARY | 2022-02-14 17:01 | XMS_ITS | Encounter Summary ---
:1970 Author Organization [facility] Address [address] [place] [address] Care Team Providers Name Role Phone Gagandeep Hinojosa MD Primary Care Provider Reason for Referral Procedure/Equipment (Routine) - Closed Specialty Diagnoses / Procedures Referred By Contact Refer red To Contact Diagnoses Pain of toe of right foot Closed nondisplaced fracture of proximal phalanx of lesser toe of right foot, initial encounter Gagandeep Hinojosa MD Procedures Walking Boot [address] [place] [address] Referral ID Status Reason Start Date Expiration Date Visits Requ ested Visits Authorized [id number] Closed 03/17/2020 06/16/2021 1 1 FOOD COOK Procedure/Equipment (Routine) - Incomplete Specialty Diagnoses / Procedures Referred By Contact Refer red To Contact Diagnoses Pain of toe of right foot Gagandeep Hinojosa MD Procedures XR Toe Rt 2nd 3 Views [address] [place] [address] Referral ID Status Reason Start Date Expiration Date Visits V isits Requested Authorized [id number] Incomplete 03/17/2020 06/16/2021 1 1 FOOD COOK Reason for Visit Reason Comments Diabetes check R foot fell a week ago Encounter Details Date Type Department Care Team Description 03/17/2020 Office Visit Gagandeep Storm Pain of toe of right foot (Primary Dx); Romario Rubio MD Closed nondisplaced fracture of proximal phalanx of lesser toe of right foot, initial encounter; [address] [place] [address] Uncontro lled type 2 diabetes mellitus with complication, with long-term current use of insulin (HRC); Ave. Ave Diabetic polyneuropathy associated with type 2 diabetes mellitus (HRC); [place] [address] [place] VIGIL Tobacco use disorder [phone] [address] Social History Tobacco Use Types Packs/Day Years [...] Comments Blood Pressure 123/77 03/17/2020 12:59 PM FAST FOOD COOK Pulse 81 03/17/2020 12:59 PM FAST FOOD COOK Temperature - - Respiratory Rate - - Oxygen Saturation - - Inhaled Oxygen Concentration - - Weight 88.5 kg (195 lb) 03/17/2020 12:59 PM FAST FOOD COOK Height - - Body Mass Index 27.98 [...] Diagnosis Date Noted ??? Non-proliferative diabetic retinopathy ([facility]) 05/02/2019 ??? Hyponatremia 01/16/2018 ??? Tinea versicolor 07/18/2015 ??? Tobacco use disorder ([facility]) 10/26/2012 ??? Anemia 05/02/2012 Overview Note: Anemia, unspecified ??? Microalbuminuria 02/04/2012 ??? OH, old ([facility]) 09/16/2011 ??? History of PTCA 09/16/2011 Overview Note: History of PTCA 04/2011 BMS RCA ??? Obesity, Class I, BMI 30-34.9 ([facility]) 09/16/2011 Overview Note: Body mass index is 31.16 kg/(m^2). ??? Hyperlipidemia with target LDL less than 70 ([facility]) 06/08/2011 Overview Note: Hyperlipidemia LDL goal < 70 ??? ASHD (arteriosclerotic heart disease) ([facility]) 05/04/2011 ??? Erectile dysfunction 01/22/2011 Overview Note: side effect Risperdal ??? Type 2 diabetes mellitus, uncontrolled ([facility]) 12/11/2010 Overview Note: Type II or unspecified type diabetes mellitus without mention of complication, uncontrolled ([facility]) ??? Dermatophytosis of body 09/04/2010 Class: Historical Overview Note: Tinea Corporis ??? Coronary atherosclerosis ([facility]) 12/22/2009 Overview Note: LW Modifier: mod RCA, negative nuclear stress test ; CAD ??? Nonspecific abnormal results of liver function study 12/22/2009 Overview Note: Liver Function Tests Abnormal ??? Bipolar I disorder ([facility]) 09/15/2005 Overview Note: LW Onset: ; Bipolar [...] 360 Tablet 3 ??? Continuous Blood Gluc Hose Coupling Joiner (Force-ASTYLE TALAT 2 READER SYSTM) ADÁN Use to scan blood sugars per earth science professor instructions. 1 Each 0 ??? Continuous Blood Gluc Sensor (FREESTYLE TALAT 14 DAY SENSOR) [facility] Use as directed. Change every 14 days. [...] 1 Tablet by mouth. 01/16/2018: [facility] Received Sig: Take 1 tablet [...] complication, with long-term current use of insulin ([facility]) E11.8 E11.65 Z79.4 4. Diabetic polyneuropathy associated with type 2 diabetes mellitus ([facility]) E11.42 5. Tobacco use disorder ([facility]) F17.200 Given his neuropathy and the clinically suggestive signs of fracture, I would like to place him in acam walker. He will follow-up in 2 weeks Follow-up: 2 weeks FOOD COOK documented in this encounter Plan of Treatment Not on filedocumented as of this encounter Results XR Toe Rt 2nd 3 Views (03/17/2020 1:45 PM FAST FOOD COOK) Anatomical Region Laterality Modality Lower Extremity, Foot, Foot & Ankle Digi ora Radiography Specimen (Source) Anatomical Collection Method Collection Time Re ceived Time Location / / Volume Laterality 03/17/2020 1:34 PM FAST FOOD COOK Impressions 03/17/2020 2:23 PM FAST FOOD COOK COMPARISON: ??None. FINDINGS: ??Question impacted second pro [...] limb documented in this encounter Care Teams Hospice Nurse Practitioner Relationship Specialty Start Date End Date Gagandeep Hinojosa MD PCP - General 05/17/12 [address] [place] [address] Vane Zarate Psychiatrist Psychiatry 03/22/12 [facility] Psychotherapist 08/04/17 [facility] Commercial Specialist 09/13/17 documented as of this encounter
--- OUTSIDE RECORDS SUMMARY | 2022-02-14 17:01 | XMS_ITS | Encounter Summary ---
:1970 Author Organization [employer] Address [address] [place] [address] Care Team Providers Name Role Phone Gagandeep Michaud MD Primary Care Provider Reason for Visit Reason Onset Date Comments Refill 05/24/2020 insulin pen needle ( BD ULTRAFINE JANET) 32G X 4 MM Encounter Details Date Type Department Care Team Description 05/24/2020 Refill [facility] Gagandeep Michaud, Refil l (insulin pen Medicine needle (BD ULTRAFINE [address] JANET) 32G X 4 MM) [place] [address] [place] VELAZQUEZ [address] (Wo rk) Social History Tobacco Use Types [...] Provider: GAGANDEEP MICHAUD Ordering User: ABBIE MITCHELL D HANGER Interface, Out [employer] Query - 05/24/2020 11:47 AM CST insulin [...] found) Next scheduled visit: None Powered by [employer], Reference: [id number], 05/24/2020 11:47:11 AM BLIND HANGER, Pool: MANUEL REFILL ([id number]) D HANGER documented in this encounter Plan of Treatment Not on filedocumented as of this encounter Visit Diagnoses Diagnosis Uncontrolled type 2 diabetes mellitus wi th microalbuminuria, with long-term current use of insulin - Primary documented in this encounter Care Teams Poke In Relationship Specialty Start Date End Date Gagandeep Michaud MD PCP - General 05/17/12 [address] [facility] [place] [address] Vane Zarate Psychiatrist Psychiatry 03/22/12 [facility] Psychotherapist 08/04/17 [facility] Lead Pressman [employer] 09/13/17 documented as of this encounter
--- OUTSIDE RECORDS SUMMARY | 2022-02-14 17:01 | XMS_ITS | Encounter Summary ---
:1970 Author Organization [employer] Address [address] [place] [address] Care Team Providers Name Role Phone Gagandeep Michaud MD Primary Care Provider Reason for Visit Reason Onset Date Comments Refill 01/09/2020 metFORMIN (GLUCOPHAG E) 500 MG tablet Encounter Details Date Type Department Care Team Description 01/09/2020 Refill [facility] Gagandeep Michaud, Refil l (metFORMIN Medicine (GLUCOPHAGE) [address] tablet) [place] [address] [place], [place] [address] (Wo rk) Social History Tobacco Use Types [...] times a day with meals. Interface, Out [employer] Prov Query - 01/09/2020 4:06 PM CDT [...] HBA1C: 11.3 % on 12/04/2019 Powered by [employer], Reference: [id number], 01/09/2020 4:06:27 PM CDT, Pool: MANUEL MOORE ([id number]) documented in this encounter Plan of Treatment Not on filedocumented as of this encounter Visit Diagnoses Not on filedocumented in this encounter Care Teams Ditcher Relationship Specialty Start Date End Date Gagandeep Michaud MD PCP - General 05/17/12 [address] [place] [address] Vane Zarate Psychiatrist Psychiatry 03/22/12 [facility] Psychotherapist 08/04/17 [facility] Main Galley Scullion 09/13/17 documented as of this encounter
--- OUTSIDE RECORDS SUMMARY | 2022-02-14 17:01 | XMS_ITS | Encounter Summary ---
:1970 Author Organization [employer] Address [address] [address] Care Team Providers Name Role Phone Gagandeep Hinojosa MD Primary Care Provider Reason for Visit Reason Comments Patient Care Coordination Encounter Details Date Type Department Care Team Description 05/30/2020 Care Coord [place] [facility] Deborah Rodrigues Patient C are Office Visit Medicine A, [facility] Coordination [address] [place] [address] [place], [place] [phone] [address] Social History Tobacco Use Types Packs/Day Years [...] of this encounter Progress Notes Deborah Rodrigues [facility] - 05/30/2020 9:00 AM CST Care Coordination Visit Pt: Timur Krishnamurthy Reason for visit: Care Coordination Timur was seen alone. Discussion/actions: Met with Rustam for a scheduled care coordination appointment, as JOSETTE NIEVES is out of the clinic today. Completed his [employer] Sol[employer] Assistance application and his Medicare [employer] application. I sent the FA application to the Rubber Molder and mailed in the Medicare [employer] application,with [...] to move to an IRTS facility in [place]. Rustam deniedneeding anything else at this time and will call back if he something comes up. No thoughts of suicide right now. Patient received verbal instructions and written materials tailored to his or her preferred method of learning. Literacy level assessed (as appropriate). Interventions, including teach back, used to verify understanding. Patient Goal(s): 1. I want to be approved for [facility] and Medicare Partners. Goal: in process 2. I want to move to an IRTS. Goal: in process SHARED PLAN: -PCP appointment 06/02 at 11:20. -RN Care Coordination appointment 06/12 at 11:00. Pt verbalized understanding and agreed with plan of care and follow up. [place] MANAGER documented in this encounter Plan of Treatment Not on filedocumented as of this encounter Visit Diagnoses Diagnosis Complex care coordination - Primary documented in this encounter Care Teams Commercial Technician Relationship Specialty Start Date End Date Gagandeep Hinojosa MD PCP - General 05/17/12 1415 [facility] [place] [address] Vane Zarate Psychiatrist Psychiatry 03/22/12 [facility] Psychotherapist 08/04/17 [facility] CM Customer Service Technician 09/13/17 documented as of this encounter
--- OUTSIDE RECORDS SUMMARY | 2022-02-14 17:01 | XMS_ITS | Encounter Summary ---
:1970 Author Organization [employer] Address [address] [place] [address] Care Team Providers Name Role Phone Gagandeep Hinojosa MD Primary Care Provider Reason for Visit Reason Comments APPOINTMENT REQUEST Encounter Details Date Type Department Care Team Description 02/26/2020 Care Coord Phone Judy Luke R N APPOINTMENT REQUEST Medicine 1415 [facility] 1415 [facility] . [place] [address] [place] VELAZQUEZ [phone] Social History Tobacco Use Types Packs/Day Years [...] with selecting a supplemental plan. Rustam agreed. SPERSON HOUSEHOLD APPLIANCES Judy Pittman RN - 02/26/2020 11:52 AM CST Rustam did not show for his DM follow up appt with Dr Hinojosa and myself today. I left a detailed message requesting he call back to reschedule, as we need to complete his application for [employer] and call the Senior Linkage Line to search for a Medicare supplemental plan. I stressed that both of these applications are time sensitive. SPERSON HOUSEHOLD APPLIANCES documented in this encounter Plan of Treatment Not on filedocumented as of this encounter Visit Diagnoses Not on filedocumented in this encounter Care Teams Pipe Puller Relationship Specialty Start Date End Date Gagandeep Hinojosa MD PCP - General 05/17/[address] [place], [place] [address] [address] Vane Zarate Psychiatrist Psychiatry 03/22/12 [facility] Psychotherapist 08/04/17 [facility] Reading Teacher 09/13/17 documented as of this encounter
--- OUTSIDE RECORDS SUMMARY | 2022-02-14 17:01 | XMS_ITS | Encounter Summary ---
:1970 Author Organization [employer] Address [address], [place] [address] Care Team Providers Name Role Phone Gagandeep Hinojosa MD Primary Care Provider Reason for Visit Reason Comments FOLLOW-UP,DIABETES Encounter Details Date Type Department Care Team Description 04/01/2020 Care Coord Phone Judy Luke R N FOLLOW-UP,DIABETES Medicine [address] [place] [address] . [place] [address] [place] [address] [phone] Social History Tobacco Use Types Packs/Day Years [...] RN - 04/01/2020 1:18 PM CST RN Preservationist - Diabetes Follow-Up Current diabetes medication regimen: [...] insurance, but would apply to providers within [place] [facility], and would eliminate his responsibility for the [...] order to apply for [employer] and [employer], as well as left these items on his voicemail because Rustam didn't have any way to write them down, including: ?? Bharath supplies ?? Cyanide Case Hardener's License ?? Insurance cards, Medicare AND Part [...] up on 04/08/20, bring documents above. RN Preservationist, as needed. Call if sx of hypoglycemia or glucose readings < 70 mg/dL. Rustam verbalized understanding and agreed with plan of care and follow up. AL SERVICES DESIGNEE documented in this encounter Plan of Treatment Not on filedocumented as of this encounter Visit Diagnoses Diagnosis Uncontrolled type 2 diabetes mellitus wi th diabetic polyneuropathy, with long-term current use of insulin Uncontrolled type 2 diabetes mellitus wi th microalbuminuria, with long-term current use of insulin Plan of Care - Judy Pittman, JOSETTE - 04/01/2020 1:00 PM CST Phone visit AL SERVICES DESIGNEE documented in this encounter Care Teams Director Of Pupil Personnel Program Relationship Specialty Start Date End Date Gagandeep Hinojosa MD PCP - General 05/17/12 1415 [facility] [place] [address] Vane Zarate Psychiatrist Psychiatry 03/22/12 [facility] Psychotherapist 08/04/17 [facility] Registered Vascular Technologist (Rvt) 09/13/17 documented as of this encounter
--- OUTSIDE RECORDS SUMMARY | 2022-02-14 17:01 | XMS_ITS | Encounter Summary ---
:1970 Author Organization [employer] Address [address] [place] [address] Care Team Providers Name Role Phone Gagandeep Hinojosa MD Primary Care Provider Reason for Referral Consult/Transfer Care (Routine) - Closed Specialty Diagnoses / Procedures Referred By Contact Refer red To Contact Diagnoses Uncontrolled type 2 diabetes mellitus with hyperglycemia (HRC) Gagandeep Hinojosa MD 1410 [facility] [place] [address] Referral ID Status Reason Start Date Expiration Date Visits Requ ested Visits Authorized [id number] Closed 12/04/2019 03/04/2021 1 1 Scheduling Instructions Your provider has recommended an appoint ment with Jimena [facility]. You may call [phone] to schedule your appoi ntment. Reason for Visit Reason Comments Medicare Annual Wellness Diabetes Growth on penis, x2 months Encounter Details Date Type Department Care Team Description 12/04/2019 Office Visit Gagandeep Storm for Medicare annual wellness exam (Primary Dx); Romario Rubio MD Uncontrolled type 2 diabetes mellitus wi th hyperglycemia (HRC); [address] 1415 [facility] Essential hypertension; [place] [address] Marlena Warts, genital; [phone] K[place]NA VIGIL Tinea versicolo r [phone] Social History Tobacco Use Types Packs/Day Years [...] DESTRUCT BENIGN SKIN LESIONS UP TO 14 50346 Repeat treatment in 3 weeks Tinea versicolor [...] 1 Tablet by mouth. 01/16/2018: Received from: [employer] [facility] Received Sig: Take 1 tablet [...] DESTRUCT BENIGN SKIN LESIONS UP TO 14 [address] 5. Tinea versicolor B36.0 terbinafine (LAMISIL) 250 [...] versicolor documented in this encounter Care Teams Police Patrol Lieutenant Relationship Specialty Start Date End Date Gagandeep Hinojosa MD PCP - General 05/17/[address] [place] [address] Vane Zarate Psychiatrist Psychiatry 03/22/12 [facility] Psychotherapist 08/04/17 [facility] Machine Cloth Examiner 09/13/17 documented as of this encounter
--- OUTSIDE RECORDS SUMMARY | 2022-02-14 17:01 | XMS_ITS | Encounter Summary ---
:1970 Author Organization [employer] Address [address], [place] [address] Care Team Providers Name Role Phone Gagandeep Michaud MD Primary Care Provider Reason for Visit Reason Onset Date Comments Refill Refill 05/10/2020 Encounter Details Date Type Department Care Team Description 05/08/2020 Refill [facility] Gagandeep Michaud MD Refill; Refill 1415 [facility] . [address]15 [place] [address] [place], [place] [address] (Wo rk) Social History Tobacco Use Types [...] Tablets by mouth two times a day. AURANT SERVICE MANAGER Alyssa Porter RN - 05/09/2020 11:52 AM [...] TWO TABLETS BY MOUTH TWICE A DAY AURANT SERVICE MANAGER Interface, Out S[employer]s Prov Query - 05/08/2020 [...] WBC: 8.4 k/cmm on 11/28/2018 Powered by [employer], Reference: [id number], 05/08/2020 12:39:24 PM RESTAURANT SERVICE MANAGER, Pool: MANUEL MOORE ([id number]) AURANT SERVICE MANAGER documented in this encounter Plan of Treatment Not on filedocumented as of this encounter Visit Diagnoses Diagnosis Bipolar I disorder (HRC) - Primary Bipolar I disorder, most recent episode (or current) unspecified ASHD (arteriosclerotic heart disease) ([facility]) Coronary atherosclerosis of unspecified type of vessel, kenaitze or graft documented in this encounter Care Teams Artillery Meteorological Man Relationship Specialty Start Date End Date Gagandeep Michaud MD PCP - General 05/17/[address] [place] [address] [place] Gerber [address] Vane Zarate Psychiatrist Psychiatry 03/22/12 [facility] Psychotherapist 08/04/17 [facility] Appliance Parts Counter Clerk 09/13/17 documented as of this encounter
--- OUTSIDE RECORDS SUMMARY | 2022-02-14 17:01 | XMS_ITS | Encounter Summary ---
:1970 Author Organization [employer] Address [address] [address] Care Team Providers Name Role Phone Gagandeep Hinojosa MD Primary Care Provider Reason for Visit Reason Comments FOLLOW-UP,DIABETES Encounter Details Date Type Department Care Team Description 11/13/2019 Care Coord Office Judy Luke RN FOLLOW-UP,DIABETES Visit Medicine [facility] [address] . [place] [address] [place] [phone] Social History Tobacco Use Types Packs/Day Years [...] RN - 11/13/2019 11:00 AM CDT RN Health Insurance Adjuster Visit Pt: Timur Krishnamurthy Referred by: [...] on filedocumented in this encounter Care Teams Fiber Analyst Relationship Specialty Start Date End Date Gagandeep Hinojosa MD PCP - General 05/17/12 1415 [facility] [place] [address] Vane Zarate Psychiatrist Psychiatry 03/22/12 [facility] Psychotherapist 08/04/17 [facility] Band Nailer 09/13/17 documented as of this encounter
--- OUTSIDE RECORDS SUMMARY | 2022-02-14 17:01 | XMS_ITS | Encounter Summary ---
:1970 Author Organization [employer] Address [address], [place] [address] Care Team Providers Name Role Phone Gagandeep Hinojosa MD Primary Care Provider Reason for Visit Reason Comments FOLLOW-UP,DIABETES Encounter Details Date Type Department Care Team Description 12/19/2019 Care Coord Office Judy Luke RN FOLLOW-UP,DIABETES Visit Medicine [facility] [address] [place] [address] [place] [phone] [address] Social History Tobacco Use Types Packs/Day Years [...] RN - 12/19/2019 11:00 AM CDT RN Pari Mutuel Ticket Cashier Visit Pt: Timur Krishnamurthy Referred by: Gagandeep [...] identified: Finance and Emotional. BG Goals: Health [facility]idential [facility] Goal <7 [...] on filedocumented in this encounter Care Teams Containers Sales Representative Relationship Specialty Start Date End Date Gagandeep Hinojosa MD PCP - General 05/17/[address] [place], [place] [address] [address] Vane Zarate Psychiatrist Psychiatry 03/22/12 [facility] Psychotherapist 08/04/17 [facility] Process Description Writer 09/13/17 documented as of this encounter
--- OUTSIDE RECORDS SUMMARY | 2022-02-14 17:01 | XMS_ITS | Encounter Summary ---
:1970 Author Organization [employer] Address [address] [place] [address] Care Team Providers Name Role Phone Gagandeep Michaud MD Primary Care Provider Reason for Visit Reason Comments Refill QUEtiapine (SEROQUEL) 200 MG tablet [Pharmacy Med Name: QUEtiapine Fumarate 200 MG Oral Tablet] Encounter Details Date Type Department Care Team Description 12/10/2019 Refill Gagandeep Storm, Rochelle l (QUEtiapine Medicine (SEROQUEL) 200 MG tablet [address] [facility] [Pharmacy Med Name: [place]igil [address] [place] [address] QUEtiapine Fumarate 200 [phone] (Wo rk) MG Oral Tablet]) Social History [...] MICHAUD) Next scheduled visit: None Powered by [employer], Reference: [id number], 12/10/2019 5:31:41 AM CDT, Pool: MANUEL MOORE ([id number]) documented in this encounter Plan of Treatment Not on filedocumented as of this encounter Visit Diagnoses Not on filedocumented in this encounter Care Teams Weld Fitter Relationship Specialty Start Date End Date aGgandeep Michaud MD PCP - General 05/17/12 [facility]5 [facility] [place] Gerber [address] Vane Zarate Psychiatrist Psychiatry 03/22/12 [facility] Psychotherapist 08/04/17 [facility] Carbide Grinder 09/13/17 documented as of this encounter
--- OUTSIDE RECORDS SUMMARY | 2022-02-14 17:01 | XMS_ITS | Encounter Summary ---
:1970 Author Organization [employer] Address [address], [place] [address] Care Team Providers Name Role Phone Gagandeep Hinojosa MD Primary Care Provider Reason for Visit Reason Comments CANCEL APPOINTMENT Encounter Details Date Type Department Care Team Description 06/12/2020 Care Coord Phone Judy Luke R N CANCEL APPOINTMENT [facility] [address] [place] [place] [address] [place] [address] [phone] Social History Tobacco Use Types Packs/Day Years [...] Pittman RN - 06/12/2020 9:38 AM CST Crt - Phone Call Contact with: Rustam Reason [...] Rustam is working with his Mental Health Fountain Clerk to find new housing. Rustam states he has not received his shipment from [employer], but notes he does not need any insulin at this time. He was given a significant supply of insulin following his recent stay at the crisis center. Shared plan: Canceled appt for today and will reschedule at a later date. Rustam verbalized understanding and agreed with plan of care and follow up. LE AND BUTTON MAKER documented in this encounter Plan of Treatment Not on filedocumented as of this encounter Visit Diagnoses Not on filedocumented in this encounter Care Teams Child Protective Services Social Worker Relationship Specialty Start Date End Date Gagandeep Hinojosa MD PCP - General 05/17/[address] [place] [address] K[place] VIGIL [address] Vane Zarate Psychiatrist Psychiatry 03/22/12 [facility] Mental Health Psychotherapist 08/04/17 [facility] Fountain Clerk 09/13/17 documented as of this encounter
--- OUTSIDE RECORDS SUMMARY | 2022-02-14 17:01 | XMS_ITS | Encounter Summary ---
:1970 Author Organization [employer] Address [address], [place] [address] Care Team Providers Name Role Phone Gagandeep Hinojosa MD Primary Care Provider Reason for Visit Reason Comments FOLLOW-UP,DIABETES Encounter Details Date Type Department Care Team Description 01/02/2020 Care Coord Office Judy Luke RN FOLLOW-UP,DIABETES Visit Medicine [facility] [address] [place] [address] [place] [phone] Social History Tobacco Use Types Packs/Day Years [...] RN - 01/02/2020 1:00 PM CDT RN Sales Trainer Visit Pt: Timur Krishnamurthy Referred by: Gagandeep [...] his . He plans on moving to [place] the end of January. Rustam is working with [facility]. I advised he apply for Section 8 [...] be eligible to apply for assistance through [employer] PAP with Tresiba and Novolog. We will apply at our next visit. Blood Glucose Rustam is very happy to report he was approved for the Benefit Assistance Program to help with the cost of his Free[employer] Bharath sensors. He states a 3 month supply of sensors is due to arrive from [employer] today. I advised Rustam to review the [id number] instructions for application of a new sensor. [...] DM follow up on 02/26/20, apply for [employer] PAP. Rustam to call if symptoms of hypoglycemia or readings < 70 mg/dL. Rustam verbalized understanding and agreed with plan of care and follow up. documented in this encounter Plan of Treatment Not on filedocumented as of this encounter Visit Diagnoses Plan of Care - Judy Pittman RN - 01/02/2020 1:00 PM CDT Phone visit documented in this encounter Care Teams Maid Supervisor Relationship Specialty Start Date End Date Gagandeep Hinojosa MD PCP - General 05/17/12 [address] [facility] [place] Gerber [address] Vane Zarate Psychiatrist Psychiatry 03/22/12 [facility] Mental [facility] Psychotherapist 08/04/17 [facility] Blueprint Duplicator 09/13/17 documented as of this encounter
--- OUTSIDE RECORDS SUMMARY | 2022-02-14 17:02 | XMS_ITS | Encounter Summary ---
:1970 Author Organization [employer] Address [address], [place] [address] Care Team Providers Name Role Phone Gagandeep Hinojosa MD Primary Care Provider Reason for Visit Reason Comments HYPOGLYCEMIA Encounter Details Date Type Department Care Team Description 10/05/2019 Phone Visit Urgent Care [facility] (Primary Dx); [place] Uncontrolled type 2 diabetes mellitus with complication, with long-term current use of insulin ([facility]) [address] [place], [place] [address] Social History Tobacco Use Types [...] insulin documented in this encounter Care Teams Grinder Operator Automatic Relationship Specialty Start Date End Date Gagandeep Hinojosa MD PCP - General 05/17/[address] [place] [address] Vane Zarate Psychiatrist Psychiatry 03/22/12 [facility] Psychotherapist 08/04/17 [facility] Insights Strategist 09/13/17 documented as of this encounter
--- OUTSIDE RECORDS SUMMARY | 2022-02-14 17:02 | XMS_ITS | Encounter Summary ---
:1970 Author Organization [employer] Address [address], [place] [address] Care Team Providers Name Role Phone Gagandeep Hinojosa MD Primary Care Provider Reason for Visit Reason Comments FOLLOW-UP,DIABETES Encounter Details Date Type Department Care Team Description 10/10/2019 Care Coord Office Judy Luke RN FOLLOW-UP,DIABETES Visit [place] [id number] . [place] [address] [place] [phone] Social History Tobacco Use Types Packs/Day Years [...] RN - 10/10/2019 11:00 AM CDT RN Rod Mill Operator Visit Pt: Timur Krishnamurthy Referred by: [...] unit for every 50 points over 200. Goceasr states he has been using the correction [...] trying to eat more cheese sticks and Eritrean or light yogurt instead. I reminded Rustam [...] Mental Health Case Management and therapy through [facility]. Therefore, Rustam requested to cancel his appt [...] covered today: Correction Factor Hyperglycemia BG Monitoring [facility] Mental [facility] Edwin received verbal instructions and written [...] on filedocumented in this encounter Care Teams Wound Care Rn Relationship Specialty Start Date End Date Gagandeep Hinojosa MD PCP - General 05/17/12 [facility]5 [facility] [place] [address] Vane Zarate Psychiatrist Psychiatry 03/22/12 [facility] Psychotherapist 08/04/17 [facility] Rn Hemodialysis 09/13/17 documented as of this encounter
--- OUTSIDE RECORDS SUMMARY | 2022-02-14 17:02 | XMS_ITS | Encounter Summary ---
:1970 Author Organization [email or web address] Address [address], [place] [address] Care Team Providers Name Role Phone Gagandeep Michaud MD Primary Care Provider Reason for Visit Reason Onset Date Comments Refill Refill 09/10/2019 Encounter Details Date Type Department Care Team Description 09/10/2019 Refill [facility] Gagandeep Michaud MD Refill; Refill 1415 [facility] . 1415 [place] [address] [place], [place] [address] (Wo rk) Social History Tobacco Use Types [...] MICHAUD) Next scheduled visit: None Powered by [employer], Reference: [id number], 09/10/2019 12:30:20 PM CDT, Pool: MANUEL MOORE ([id number]) documented in this encounter Plan of Treatment Not on filedocumented as of this encounter Visit Diagnoses Diagnosis Uncontrolled type 2 diabetes mellitus wi th complication, with long-term current use of insulin documented in this encounter Care Teams Jig Box Operator Relationship Specialty Start Date End Date Ggaandeep Michaud MD PCP - General 05/17/12 [address] [place] Heranndez [address] Vane Zarate Psychiatrist Psychiatry 03/22/12 [facility] Mental Health Psychotherapist 08/04/17 [facility] Roving Machine Operator 09/13/17 documented as of this encounter
--- OUTSIDE RECORDS SUMMARY | 2022-02-14 17:02 | XMS_ITS | Encounter Summary ---
:1970 Author Organization [employer] Address [address] [address] Care Team Providers Name Role Phone Gagandeep Hinojosa MD Primary Care Provider Reason for Visit Reason Comments FOLLOW-UP,DIABETES Encounter Details Date Type Department Care Team Description 10/08/2019 Care Coord Phone Judy Luke R N FOLLOW-UP,DIABETES Medicine [address] [place] [address] . [place] [address] [place] [address] [phone] Social History Tobacco Use Types Packs/Day Years [...] RN - 10/08/2019 2:44 PM CDT RN Assistant Speech Language Pathologist - Diabetes Follow-Up Current diabetes medication regimen: [...] medication arrived. The samples were entered into [employer] and verified by Dr Foster. The medication is stored in the injection room refrigerator and damaris ilable for order picker at his earliest convenience. Teach back method used to verify understanding. Shared plan: Continue current insulin and medication regimen, as prescribed. Record foods eaten prior to all BG readings >200. If preprandial BG is >200, add 1 unit for every 50 points over 200. esthetician permanent makeup artist Tresiba samples at earliest convenience. Phone follow [...] documented in this encounter Care Teams Manager Program Management Relationship Specialty Start Date End Date Gagandeep Hinojosa MD PCP - General 05/17/12 [facility]5 [place] [address] Vane Zarate Psychiatrist Psychiatry 03/22/12 [facility] Mental [facility] Psychotherapist 08/04/17 [facility] Miller Rod Mill 09/13/17 documented as of this encounter
--- OUTSIDE RECORDS SUMMARY | 2022-02-14 17:02 | XMS_ITS | Encounter Summary ---
:1970 Author Organization [employer] Address [address] [place] [address] Care Team Providers Name Role Phone Gagandeep Michaud MD Primary Care Provider Reason for Visit Reason Comments Refill QUEtiapine (SEROQUEL) 200 MG tablet [Pharmacy Med Name: QUEtiapine Fumarate 200 MG Oral Tablet] Encounter Details Date Type Department Care Team Description 10/14/2019 Refill Gagandeep Storm, Rochelle l (QUEtiapine Medicine MD (SEROQUEL) 200 MG tablet [address] 1415 [facility] [Pharmacy Med Name: [place]NA Vigil [address] [place] VIGIL [address] QUEtiapine Fumarate 200 [phone] (Wo rk) MG Oral Tablet]) Social History [...] MICHAUD) Next scheduled visit: None Powered by [employer], Reference: [id number], 10/14/2019 4:31:34 PM CDT, Pool: MANUEL REFILL ([id number]) documented in this encounter Plan of Treatment Not on filedocumented as of this encounter Visit Diagnoses Not on filedocumented in this encounter Care Teams Ultrasonic Hand Solderer Relationship Specialty Start Date End Date Gagandeep Michaud MD PCP - General 05/17/[address] [place] [address] [place] Gerber [address] Vane Zarate Psychiatrist Psychiatry 03/22/12 [facility] Psychotherapist 08/04/17 [facility] Hot Roll Laminator 09/13/17 documented as of this encounter
--- OUTSIDE RECORDS SUMMARY | 2022-02-14 17:02 | XMS_ITS | Encounter Summary ---
:1970 Author Organization [facility] Address [address] [place] [address] Care Team Providers Name Role Phone Gagandeep Hinojosa MD Primary Care Provider Reason for Visit Reason Comments HYPOGLYCEMIA Encounter Details Date Type Department Care Team Description 10/05/2019 [facility] Gagandeep Hinojosa MD HYPOGLYCEMIA 1415 [facility] . 1415 [facility] [place] [facility] [place] [address] [place] [address] [phone] (Wo rk) Social History Tobacco Use Types [...] 10/05/2019 5:11 PM CDT Mark Pittman RN, Trial Judge as OFE. Appt scheduled to speak with [...] unknown Protocols used: DIABETES - LOW BLOOD [id number] documented in this encounter Plan of Treatment Not on filedocumented as of this encounter Visit Diagnoses Not on filedocumented in this encounter Care Teams Project Estimator Relationship Specialty Start Date End Date Gagandeep Hinojosa MD PCP - General 05/17/[address] [place] [address] Vane Zarate Psychiatrist Psychiatry 03/22/12 [facility] Psychotherapist 08/04/17 [facility] Legal Research Analyst 09/13/17 documented as of this encounter
--- OUTSIDE RECORDS SUMMARY | 2022-02-14 17:02 | XMS_ITS | Encounter Summary ---
:1970 Author Organization [employer] Address [address], [place] [address] Care Team Providers Name Role Phone Gagandeep Michaud MD Primary Care Provider Reason for Visit Reason Onset Date Comments Refill 08/24/2019 benztropine (COGENTI N) 1 MG tablet Encounter Details Date Type Department Care Team Description 08/24/2019 Refill [place] [facility] Gagandeep Michaud, Refil l (benztropine Medicine (COGENTIN) 1 MG tablet) 1415 [facility] . 1415 [place] [address] [place], [place] [address] (Wo rk) Social History Tobacco Use Types [...] 9:50 AM CDT Call patient Interface, Out Platiza Prov Query - 08/24/2019 8:34 AM CDT benztropine (COGENTIN) 1 MG tablet -> The medication cannot be found in the patient's medication history. -> Medication cannot be delegated. Last qualifying visit: 06/21/2019 (with GAGANDEEP MICHAUD) Next scheduled visit: 08/28/2019 (in Family Practice) Powered by [email or web address], Reference: [id number], 08/24/2019 8:34:13 AM CDT, Pool: MANUEL MOORE ([id number]) documented in this encounter Plan of Treatment Not on filedocumented as of this encounter Visit Diagnoses Not on filedocumented in this encounter Care Teams Mannequin Molder Relationship Specialty Start Date End Date Gagandeep Michaud MD PCP - General 05/17/12 1415 [facility] [place] Gerber [address] Vane Zarate Psychiatrist Psychiatry 03/22/12 [facility] Psychotherapist 08/04/17 [facility] Lining Stitcher 09/13/17 documented as of this encounter
--- OUTSIDE RECORDS SUMMARY | 2022-02-14 17:02 | XMS_ITS | Encounter Summary ---
:1970 Author Organization [employer] Address [address] [address] Care Team Providers Name Role Phone Gagandeep Hinojosa MD Primary Care Provider Reason for Visit Reason Comments FOLLOW-UP,DIABETES Encounter Details Date Type Department Care Team Description 10/03/2019 Care Coord Phone Judy Luke R N FOLLOW-UP,DIABETES Medicine [address] [place] [address] . [place] [address] [place] [address] [phone] Social History Tobacco Use Types Packs/Day Years [...] RN - 10/03/2019 4:32 PM CDT RN Supervisor Of Way - Diabetes Follow-Up Current diabetes medication regimen: [...] on filedocumented in this encounter Care Teams Continuous Pickling Line Pickler Relationship Specialty Start Date End Date Gagandeep Hinojosa MD PCP - General 05/17/12 [address] [place] [address] Vane Zarate Psychiatrist Psychiatry 03/22/12 [facility] Psychotherapist 08/04/17 [facility] Flake Miller Helper 09/13/17 documented as of this encounter
--- OUTSIDE RECORDS SUMMARY | 2022-02-14 17:02 | XMS_ITS | Encounter Summary ---
:1970 Author Organization [employer] Address [address], [place] [address] Care Team Providers Name Role Phone Gagandeep Hinojosa MD Primary Care Provider Reason for Visit Reason Comments FOLLOW-UP,DIABETES Encounter Details Date Type Department Care Team Description 09/24/2019 Care Coord Office Judy Luke RN FOLLOW-UP,DIABETES Visit Medicine [facility] . [place] [address] [place] [phone] Social History Tobacco Use Types Packs/Day Years [...] requesting a return call. Please transfer to [phone]. Unable to reach Rustam after multiple attempts and messages left. Provided contact information and encouraged to call back to review BG readings. documented in this encounter Plan of Treatment Not on filedocumented as of this encounter Visit Diagnoses Not on filedocumented in this encounter Care Teams Integration Software Developer Relationship Specialty Start Date End Date Gagandeep Hinojosa MD PCP - General 05/17/12 8[address] [facility] [place] [place] [address] Vane Zarate Psychiatrist Psychiatry 03/22/12 [facility] Psychotherapist 08/04/17 [facility] Biomedical Instrument Technician 09/13/17 documented as of this encounter
--- OUTSIDE RECORDS SUMMARY | 2022-02-14 17:02 | XMS_ITS | Encounter Summary ---
:1970 Author Organization [facility] [facility] Address [address], [place] [address] Care Team Providers Name Role Phone Gagandeep Hinojosa MD Primary Care Provider Reason for Visit Reason Comments Medication Problems Encounter Details Date Type Department Care Team Description 09/10/2019 Nurse Triage [facility] Gagandeep Hinojosa, Medic ation Problems Medicine 1415 [facility] . 1415 [place] [address] [place] [address] [phone] (Wo rk) Social History Tobacco Use Types [...] (PSC), please warm transfer call to extension [facility] or triage to discuss. If no [...] - Benztropine. Clinician Next Step: Route to [facility] to follow up Specific Request(s): 1. Pt [...] to answer question Protocols used: MEDICATION QUESTION [id number] documented in this encounter Plan of Treatment Not on filedocumented as of this encounter Visit Diagnoses Not on filedocumented in this encounter Care Teams Processing Engineer Relationship Specialty Start Date End Date Gagandeep Hinojosa MD PCP - General 05/17/12 97[address] [facility] [place] Ger[place] [address] Vane Zartae Psychiatrist Psychiatry 03/22/12 [facility] Mental [facility] Psychotherapist 08/04/17 [facility] Tight Cooper 09/13/17 documented as of this encounter
--- OUTSIDE RECORDS SUMMARY | 2022-02-14 17:02 | XMS_ITS | Encounter Summary ---
:1970 Author Organization [employer] Address [address], [place] [address] Care Team Providers Name Role Phone Gagandeep Hinojosa MD Primary Care Provider Reason for Visit Reason Comments FOLLOW-UP,DIABETES Encounter Details Date Type Department Care Team Description 10/16/2019 Care Coord Office Judy Luke RN FOLLOW-UP,DIABETES Visit [place] [address] . [place] [address] [place] [phone] Social History Tobacco Use Types Packs/Day Years [...] RN - 10/16/2019 11:00 AM CDT RN School Library Media Program Director Visit Pt: Timur Krishnamurthy Referred by: Gagandeep [...] trying to eat more cheese sticks and Danish or light yogurt for snacks. I reminded [...] filedocumented in this encounter Care Teams Regional Administrative Assistant Relationship Specialty Start Date End Date Gagandeep Hinojosa MD PCP - General 05/17/[address] [place] [address] Vane Zarate Psychiatrist Psychiatry 03/22/12 [facility] Psychotherapist 08/04/17 [facility] Extension Work Director 09/13/17 documented as of this encounter
--- OUTSIDE RECORDS SUMMARY | 2022-02-14 17:02 | XMS_ITS | Encounter Summary ---
:1970 Author Organization [employer] Address [address] [place] [address] Care Team Providers Name Role Phone Gagandeep Hinojosa MD Primary Care Provider Reason for Visit Reason Comments NAIL PROBLEM Left great toenail injury Encounter Details Date Type Department Care Team Description 09/20/2019 Office Visit [facility] Antonio Felipe T raumatic avulsion of nail plate of toe, initial encounter (Primary Dx); MedSurg DPM Type 2 diabetes mellitus with peripheral neuropathy ([facility]) [address] [place] [address] [place], [place] [phone] (Wo rk) Social History Tobacco Use Types [...] care from the wound care nurse in [place]. He does have shoes and inserts which she received at [facility]. He presents today for evaluation of his left great toenail. He was seen at [facility] twice for this. His 1st visit was [...] fair amount of bleeding and presented to [facility]. The chart note from that [...] unspecified type diabetes mellitus with hyperosmolarity, uncontrolled ([facility]) 12/11/2010 ??? Type II or unspecified type diabetes mellitus without mention of complication, uncontrolled ([facility]) 12/11/2010 Patient Active Problem List Diagnosis Date Noted ??? Non-proliferative diabetic retinopathy ([facility]) 05/02/2019 ??? Hyponatremia 01/16/2018 ??? Tinea versicolor 07/18/2015 ??? Tobacco use disorder ([facility]) 10/26/2012 ??? Anemia 05/02/2012 Overview Note: Anemia, unspecified ??? Microalbuminuria 02/04/2012 ??? [place], old ([facility]) 09/16/2011 ??? History [...] [facility] ??? Dermatophytosis of body 09/04/2010 Overview Note: Tinea Corporis ??? Coronary atherosclerosis ([facility]) 12/22/2009 Overview Note: LW Modifier: mod RCA, negative nuclear stress test ; CAD ??? Nonspecific abnormal results of liver function study 12/22/2009 Overview Note: Liver Function Tests Abnormal ??? Bipolar I disorder ([facility]) 09/15/2005 Overview Note: LW Onset: [id number] ; Bipolar I Dis OBJECTIVE: DP and [...] appears from reading his initial note from [facility] that the nail was loose and then the note 2 days later from [facility] indicating that he had considerable bleeding from a traumatic nail avulsion. I discussed with the patient that I would like him to apply bacitracin and acovering for the next 1 week. If he does develop any type of redness, he will contact us immediately. He does get his nails trimmed at [facility]. All questions answered. The patient was discharged ambulatory and in stable condition. No orders of the defined types were placed in this encounter. No orders of the defined types were placed in this encounter. (This note was created using voice recognition software and may contain some hospital medical assistant errors) documented in this encounter Plan of Treatment Not on filedocumented as of this encounter Visit Diagnoses Diagnosis Traumatic avulsion of nail plate of toe, initial encounter - Primary Type 2 diabetes mellitus with peripheral neuropathy (C) documented in this encounter Care Teams Maintainer Operator Relationship Specialty Start Date End Date Gagandeep Hinojosa MD PCP - General 05/17/12 1415 [facility] [place] [address] Vane Zarate Psychiatrist Psychiatry 03/22/12 [facility] Psychotherapist 08/04/17 [facility] Consulting Solution Manager 09/13/17 documented as of this encounter
--- OUTSIDE RECORDS SUMMARY | 2022-02-14 17:02 | XMS_ITS | Encounter Summary ---
:1970 Author Organization [employer] Address [address] [place] [address] Care Team Providers Name Role Phone Gagandeep Michaud MD Primary Care Provider Reason for Visit Reason Onset Date Comments Refill 09/13/2019 insulin degludec (TR ESIBA FLEXTOUCH) 200 UNIT/ML SOPN Encounter Details Date Type Department Care Team Description 09/13/2019 Refill Gagandeep Storm Refil l (insulin degludec Medicine (TRESIBA FLEXTOUCH) [address] UNIT/ML SOPN) [place] [address] [place] [address] [phone] (Wo rk) Social History Tobacco Use Types [...] MICHAUD) Next scheduled visit: None Powered by [employer], Reference: [id number], 09/13/2019 2:38:57 PM CDT, Pool: MANUEL REFILL ([id number]) Amelia Conway MA - 09/13/2019 2:37 PM [...] documented in this encounter Care Teams Manager Furniture Relationship Specialty Start Date End Date Gagandeep Michaud MD PCP - General 05/17/[address] [facility] [place] [address] Vane Zarate Psychiatrsamantha Psychiatry 03/22/12 [facility] Psychotherapist 08/04/17 [facility] Bakery Products Checker 09/13/17 documented as of this encounter
--- OUTSIDE RECORDS SUMMARY | 2022-02-14 17:02 | XMS_ITS | Encounter Summary ---
:1970 Author Organization [employer] Address [address] [address] Care Team Providers Name Role Phone Gagandeep Hinojosa MD Primary Care Provider Reason for Visit Reason Comments FOLLOW-UP,DIABETES Encounter Details Date Type Department Care Team Description 08/29/2019 Care Coord Phone Judy Luke R N FOLLOW-UP,DIABETES Medicine [address] [place] [address] . [place] [address] [place] [address] [phone] Social History Tobacco Use Types Packs/Day Years [...] RN - 09/03/2019 2:01 PM CDT RN Sap Security Architect - Diabetes Follow-Up Current diabetes medication regimen: [...] requesting a return call. Please transfer to [phone]. documented in this encounter Plan of Treatment Not on filedocumented as of this encounter Visit Diagnoses Not on filedocumented in this encounter Care Teams Vice Admiral Relationship Specialty Start Date End Date Gagandeep Hinojosa MD PCP - General 05/17/[address] [place] [address] [place] [address] Vane Zarate Psychiatrist Psychiatry 03/22/12 [facility] Psychotherapist 08/04/17 [facility] Material Control Specialist 09/13/17 documented as of this encounter
--- OUTSIDE RECORDS SUMMARY | 2022-02-14 17:02 | XMS_ITS | Encounter Summary ---
:1970 Author Organization [facility] Address [address] [place] [address] Care Team Providers Name Role Phone Gagandeep Hinojosa MD Primary Care Provider Reason for Visit Reason Comments Medication Request Encounter Details Date Type Department Care Team Description 08/31/2019 Telephone [facility] Gagandeep Hinojosa, Medication Request 1415 [facility] [place] [address] 1415 [facility] [phone] [place] [address] (Wo rk) Social History [...] regarding Medication Clinician Next Step: Route to [facility] to follow up and Patient IS expecting a call back fromcare team Specific Request(s): 1. Patient requesting alternative to levocarnitine States he was unable to find other pharmacies with supply. Teri Lockett RN - 09/04/2019 3:46 PM CDT Left message for patient to return call if he has found another pharmacy or if he would like an alternative prescribed. [phone] Mendy Nieves RN - 08/31/2019 2:28 PM CDT Return call from patient, patient will contact other pharmacies for Rx Levocarnitine supply and affordable medication. If unavailable, patient will request for alternative medication from PCP. Await return call. Sasha Garcia RN - 08/31/2019 9:43 AM CDT Left message for patient to return call to [phone]. Medication is historical. Does patient want to call other pharmacies for refill due to back order ofmedication at [facility] pharmacy or request alternative medication from PCP? [...] an appropriate substitute. Thank you. Calvin Vigil [phone] documented in this encounter Plan of Treatment Not on filedocumented as of this encounter Visit Diagnoses Not on filedocumented in this encounter Care Teams Gun Number Relationship Specialty Start Date End Date Gagandeep Hinojosa MD PCP - General 05/17/12 1415 [facility] [place] [address] Vane Zarate Psychiatrist Psychiatry 03/22/12 [facility] Psychotherapist 08/04/17 [facility] Gum Rolling Machine Tender 09/13/17 documented as of this encounter
--- OUTSIDE RECORDS SUMMARY | 2022-02-14 17:02 | XMS_ITS | Encounter Summary ---
:1970 Author Organization [employer] Address [address] [place] [address] Care Team Providers Name Role Phone Gagandeep Hinojosa MD Primary Care Provider Reason for Referral Consult/Transfer Care (Routine) - Closed Specialty Diagnoses / Procedures Referred By Contact Refer red To Contact Diagnoses Type 2 diabetes mellitus with diabetic polyneuropathy, with long-term current use of insulin (HRC) Gagandeep Hinojosa MD 1419 [facility] [place] [address] Referral ID Status Reason Start Date Expiration Date Visits Requ ested Visits Authorized [id number] Closed 08/28/2019 11/26/2020 1 1 Scheduling Instructions Your provider has recommended an appoint ment with [facility]. You may call [phone] to schedule your appoi ntment. If you [...] Rubio MD Bipolar I disorder (HRC); [address] 1415 [facility] Tobacco use disorder; [place] [address] Avelvira Drug-induced tremor; [phone] [place] Essential hyper tension; [address] Non-proliferative diabetic retinopathy ( [facility]); [phone] ASHD (arteriosc lerotic heart disease); (Work) Uncontrolled type 2 diabetes mellitus wi th hyperglycemia ([facility]); [phone] Diabetes carlos montes with complication ([facility]); (Fax) Diabetes carlos montes with neurological manifestations, uncontrolled (HR); Diabetic polyne uropathy associated with type 2 diabetes mellitus ([facility]) Social History Tobacco Use Types Packs/Day [...] P athologist Signature Albumin, 351.2 mg/L 12/04/2019 [place] Urine, Random 3:54 PM CDT LABORATORY Creatinine, 106 >20 mg/dL 12/04/2019 [place] Urine, Random 3:54 PM CDT LABORATORY Albumin/Creati 331 (H) <30 mg/g 12/04/2019 [place] nine Ratio, 3:54 PM CDT LABORATORY Urine, Random Specimen Anatomical Collection Method Collection Time Receive d Time (Source) Location / / Volume Laterality Urine Non-blood 12/04/2019 10:10 12/04/2019 Collection / AM CDT 10:10 AM CDT Unknown Gagandeep Hinojosa MD LAB_1 Performing Organization Address City/[facility]/ZIP Code Phon e Number [facility] [address] [place] [address] (ABNORMAL) Lipid Panel and Direct LDL(If Needed) - in 3 months (12/04/2019 10:06 AM CDT) Patholo gist Method Time Signature Cholesterol 116 0 - 199 12/04/2019 [place] mg/dL 4:03 PM CDT LABORATORY Triglyceride 137 <=149 12/04/2019 [place] mg/dL 4:03 PM CDT LABORATORY HDL Cholesterol 35 (L) >=40 mg/dL 12/04/2019 [place] 4:03 PM CDT LABORATORY LDL, Calculated 54 <130 mg/dL 12/04/2019 [place] 4:03 PM CDT LABORATORY Non HDL Chol, 81 mg/dL 12/04/2019 [place] Calculated 4:03 PM CDT LABORATORY Cholesterol/HDL 3.3 12/04/2019 [place] Ratio 4:03 PM CDT LABORATORY Hours Fasting 12 12/04/2019 [place] 4:03 PM CDT LABORATORY Specimen Anatomical Collection Method / Collection Time Recei abimael Time (Source) Location / Volume Laterality Blood Venipuncture / 12/04/2019 10:06 0 Unknown AM CDT 10:06 AM CDT Gagandeep Hinojosa MD LAB_1 Performing Organization Address City/State/ZIP Code Phon e Number [facility] [address] [place] [address] [facility] [address] [place] [address], [place] Creatinine / GFR - in 3 months (12/04/2019 10:06 AM CDT) P athologist Signature Creatinine 0.80 0.73 - 12/04/2019 [place] 1.18 mg/dL 4:03 PM CDT LABORATORY GFR, Estimated >60 >60 12/04/2019 [place] mL/min/1.7 4:03 PM CDT LABORATORY 3m2 Specimen Anatomical Collection Method / Collection Time Recei abimael Time (Source) Location / Volume Laterality Blood Venipuncture / 12/04/2019 10:06 0 Unknown AM CDT 10:06 AM CDT Gagandeep Hinojosa MD LAB_1 Performing Organization Address [facility] Code [facility] e Number [facility] [address] [place] [address] (ABNORMAL) POCT Glycosylated Hemoglobin (HB A1C) - in 3 months (12/04/2019 10:06 AM CDT) Patholo gist Method Time Signature Hemoglobin A1C 11.3 (H) <=5.6 % 12/04/2019 [place] (Rapid) 10:15 AM CDT LABORATORY Specimen Anatomical Collection Method / Collection Time Recei abimael Time (Source) Location / Volume Laterality Blood Venipuncture / 12/04/2019 10:06 0 Unknown AM CDT 10:06 AM CDT Narrative [facility] - 12/04/2019 10:15 A M CDT This Rapid A1c test is designed for charlotte toring patients with an established diagnosis of diabetes mellitus. This rapid method is not suitable to establish the initial diagnosis of diabetes mellitus. Performe d using Point of Care Instrumentation. Gagandeep Hinojosa MD LAB_1 Performing Organization Address City/[facility]/ZIP Code [facility] e Number [facility] [address] [place] [address] documented in this encounter Visit Diagnoses Diagnosis [...] Coronary atherosclerosis of unspecified type of vessel, pit river or graft Uncontrolled type 2 diabetes mellitus [...] Gagandeep Hinojosa MD PCP - General 05/17/[address] [place] [address] [place] [address] Vane Zarate Psychiatrist Psychiatry 03/22/12 [facility] Psychotherapist 08/04/17 [facility] Real Estate Executive Assistant 09/13/17 documented as of this encounter
--- OUTSIDE RECORDS SUMMARY | 2022-02-14 17:02 | XMS_ITS | Encounter Summary ---
:1970 Author Organization [employer] [facility] Address [address] [place] [address] Care Team Providers Name Role Phone Gagandeep Michaud MD Primary Care Provider Reason for Visit Reason Comments Refill risperiDONE (RISPERDAL) 3 MG tablet [Pharmacy Med Name: risperiDONE 3 MG Oral Tablet] Encounter Details Date Type Department Care Team Description 10/28/2019 Refill Gagandeep Storm, Refrose mary l (risperiDONE Medicine MD (RISPERDAL) [address] MG tablet [address] [facility]15 [facility] [Pharmacy Med Name: [place] [address] Y[place] [address] risperiDONE 3 MG Oral [phone] (Wo rk) Tablet]) Social History Tobacco Use [...] MICHAUD) Next scheduled visit: None Powered by [employer], Reference: [id number], 10/28/2019 2:48:42 PM CDT, Pool: MANUEL REFILL ([id number]) documented in this encounter Plan of Treatment Not on filedocumented as of this encounter Visit Diagnoses Not on filedocumented in this encounter Care Teams Rn Icu Relationship Specialty Start Date End Date Gagandeep Michaud MD PCP - General 05/17/[address] [place] [address] [place] [address] Vane Zarate Psychiatrist Psychiatry 03/22/12 [facility] Psychotherapist 08/04/17 [facility] Mechanic 09/13/17 documented as of this encounter
--- OUTSIDE RECORDS SUMMARY | 2022-02-14 17:02 | XMS_ITS | Encounter Summary ---
:1970 Author Organization [email or web address] Address [address] [place] [address] Care Team Providers Name Role Phone Gagandeep Hinojosa MD Primary Care Provider Encounter Details Date Type Department Care Team Description 08/28/2019 Lab Visit [facility] Uncontrolled type [address] mellitus with hyperglycemia [place] [address] ([facility]) [phone] Social History Tobacco Use Types Packs/Day Years [...] P athologist Signature Albumin, 265.4 mg/L 08/28/2019 [place] Urine, Random 5:06 PM CDT LABORATORY Creatinine, 49 >20 mg/dL 08/28/2019 [place] Urine, Random 5:06 PM CDT LABORATORY Albumin/Creati 542 (H) <30 mg/g 08/28/2019 [place] nine Ratio, 5:06 PM CDT LABORATORY Urine, Random Specimen Anatomical Collection Method Collection Time Receive d Time (Source) Location / / Volume Laterality Urine,random Non-blood 08/28/2019 2:10 PM 0 2:10 Collection / CDT PM CDT Unknown Gagandeep Hinojosa MD LAB_1 Performing Organization Address City/[facility]/ZIP Code Phon e Number [facility] [address] [place], [place] [address] (ABNORMAL) Creatinine / GFR (08/28/2019 2:06 PM CDT) [facility] [employer] Travel Method Time Signature Creatinine 0.70 (L) 0.73 - 08/28/2019 [place] 1.18 mg/dL 5:02 PM CDT LABORATORY GFR, Estimated >60 >60 08/28/2019 [place] mL/min/1.7 5:02 PM CDT LABORATORY 3m2 GFR, Est If >60 >60 08/28/2019 [place] mL/min/1.7 5:02 PM CDT LABORATORY Malagasy 3m2 Specimen Anatomical Collection Method / Collection Time Recei abimael Time (Source) Location / Volume Laterality Blood Venipuncture / 08/28/2019 2:06 08/28/2019 2:06 Unknown PM CDT PM CDT Gagandeep Hinojosa MD LAB_1 Performing Organization Address City/[facility]/ZIP Code Phon e Number [facility] [address] [place] [address] (ABNORMAL) POCT Glycosylated Hemoglobin (HB A1C) (08/28/2019 2:06 PM CDT) [facility] [employer] Travel Method Time Signature Hemoglobin A1C 11.4 (H) <=5.6 % 08/28/2019 [place] (Rapid) 2:15 PM CDT LABORATORY Specimen Anatomical Collection Method / Collection Time Recei abimael Time (Source) Location / Volume Laterality Blood Venipuncture / 08/28/2019 2:06 08/28/2019 2:06 Unknown PM CDT PM CDT Narrative [facility] - 08/28/2019 2:15 PM CDT This Rapid A1c test is designed for charlotte toring patients with an established diagnosis of diabetes mellitus. This rapid method is not suitable to establish the initial diagnosis of diabetes mellitus. Performe d using Point of Care Instrumentation. Gagandeep Hinojosa MD LAB_1 Performing Organization Address City/State/ZIP Code Phon e Number [facility] [address] [place] [address] documented in this encounter Visit Diagnoses Diagnosis Uncontrolled type 2 diabetes mellitus wi th hyperglycemia (HRC) documented in this encounter Care Teams Manager Mass Relationship Specialty Start Date End Date Gagandeep Hinojosa MD PCP - General 05/17/12 1419 [place] [address] Vane Zarate Psychiatrsamantha Psychiatry 03/22/12 [facility] Psychotherapist 08/04/17 [facility] Display Designer Outside 09/13/17 documented as of this encounter
--- OUTSIDE RECORDS SUMMARY | 2022-02-14 17:02 | XMS_ITS | Encounter Summary ---
:1970 Author Organization [employer] Address [address], [place] [address] Care Team Providers Name Role Phone Gagandeep Hinojosa MD Primary Care Provider Reason for Visit Reason Comments FOLLOW-UP,DIABETES Encounter Details Date Type Department Care Team Description 09/18/2019 Care Coord Office Judy Luke RN FOLLOW-UP,DIABETES Visit [place] [id number] [address] . [place] [address] [place] [phone] [address] Social History Tobacco Use Types Packs/Day Years [...] RN - 09/18/2019 3:00 PM CDT RN Rubber Trimmer Visit Pt: Timur Krishnamurthy Referred by: Gagandeep [...] trying to eat more cheese sticks and Syriac or light yogurt instead. I reminded Rustam [...] Mental Health Case Management and therapy through [facility], but needs a new psychiatrist for medication management. Last week we left a message to schedule with a [facility] provider, but Rustam states he did not receive a return call. We called again today and scheduled a video visit with Dr Darnell on 10/24/19. Rustam states his , Rosetta, will help him install Coffee Meets Bagel on his phone and we can practice [...] on 09/24/19. Scheduled appt with [facility] on 10/24/19. Rustam to call if symptoms of hypoglycemia or readings < 70 mg/dL. Rustam verbalized understanding and agreed with plan of care and follow up. documented in this encounter Plan of Treatment Not on filedocumented as of this encounter Visit Diagnoses Not on filedocumented in this encounter Care Teams Jacquard Loom Heddles Tier Relationship Specialty Start Date End Date Gagandeep Hinojosa MD PCP - General 05/17/12 [facility]5 [facility] [place] [address] Vane Zarate Psychiatrsamantha Psychiatry 03/22/12 [facility] Psychotherapist 08/04/17 [facility] Traffic Clerk 09/13/17 documented as of this encounter
--- OUTSIDE RECORDS SUMMARY | 2022-02-14 17:02 | XMS_ITS | Encounter Summary ---
:1970 Author Organization [employer] Address [address] [address] Care Team Providers Name Role Phone Gagandeep Hinojosa MD Primary Care Provider Reason for Visit Reason Comments FOLLOW-UP,DIABETES Encounter Details Date Type Department Care Team Description 09/10/2019 Care Coord Office Judy Luke RN FOLLOW-UP,DIABETES Visit Medicine [facility] . [place] [address] [place] [phone] Social History Tobacco Use Types Packs/Day Years [...] RN - 09/10/2019 1:00 PM CDT RN Clock And Watch Assembler Visit Pt: Timur Krishnamurthy Referred by: Gagandeep [...] has straight Medicare and Part D through [employer], so he is responsible for the 20% Medicare does not cover, which is expensive. Because his combined annual household income is over $75,000, Rustam is over income for [place] and [facility]. I still feel that Rustam would [...] trying to eat more cheese sticks and English or light yogurt instead. I reminded Rustam [...] Mental Health Case Management and therapy through [facility], but will need a new psychiatrist. Rustam would like to stay at [facility], if possible. We called [facility] together and were advised that the intake visit must be a video visit, but Rustam does not have the technology for a video visit. The foreign policy officer agrees to message some providers to see [...] on filedocumented in this encounter Care Teams Weave Room Supervisor Relationship Specialty Start Date End Date Gagandeep Hinojosa MD PCP - General 05/17/12 [facility] [place] [address] Vane Zarate Psychiatrist Psychiatry 03/22/12 [facility] Psychotherapist 08/04/17 [facility] Heart Doctor 09/13/17 documented as of this encounter
--- OUTSIDE RECORDS SUMMARY | 2022-02-14 17:02 | XMS_ITS | Encounter Summary ---
:1970 Author Organization [employer] Address [address], [place] [address] Care Team Providers Name Role Phone Gagandeep Hinojosa MD Primary Care Provider Reason for Visit Reason Onset Date Comments Refill 08/24/2019 Patient Calling Back 08/24/2019 Encounter Details Date Type Department Care Team Description 08/24/2019 Refill [facility] Gagandeep Hinojosa, Refil l; Patient Calling Medicine MD Back 1415 [facility] . [address]15 [place] [address] [place], [place] [address] (Wo rk) Social History Tobacco Use Types [...] filedocumented in this encounter Care Teams Plug Saw Operator Relationship Specialty Start Date End Date Gagandeep Hinojosa MD PCP - General 05/17/12 1415 [place] [address] Vane Zarate Psychiatrist Psychiatry 03/22/12 [facility] Mental [facility] Psychotherapist 08/04/17 [facility] Shrimp Peeling Machine Operator 09/13/17 documented as of this encounter
--- OUTSIDE RECORDS SUMMARY | 2022-02-14 17:02 | XMS_ITS | Encounter Summary ---
:1970 Author Organization [employer] Address [address] [place] [address] Care Team Providers Name Role Phone Gagandeep Hinojosa MD Primary Care Provider Reason for Visit Reason Comments LACERATION, TOES Encounter Details Date Type Department Care Team Description 09/14/2019 Nurse Triage [facility] Gagandeep Hinojosa, LACERATION, TOES [address] [place] [address] [place] [address] (Wo rk) Social History Tobacco [...] Disposition ??? Torn toenail Protocols used: TOE [id number] documented in this encounter Plan of Treatment Not on filedocumented as of this encounter Visit Diagnoses Not on filedocumented in this encounter Care Teams Art Critic Relationship Specialty Start Date End Date Gagandeep Hinojosa MD PCP - General 05/17/12 1415 [facility] [place] [address] Vane Zarate Psychiatrist Psychiatry 03/22/12 [facility] Mental Health Psychotherapist 08/04/17 [facility] Area Field Worker 09/13/17 documented as of this encounter
--- OUTSIDE RECORDS SUMMARY | 2022-02-14 17:03 | XMS_ITS | Encounter Summary ---
:1970 Author Organization [employer] Address [address] [place] [address] Care Team Providers Name Role Phone Gagandeep Hinojosa MD Primary Care Provider Reason for Visit Reason Comments Hospital Discharge Follow-up 06-17-19 [facility] admi t for Chest pain Encounter Details Date Type Department Care Team Description 06/21/2019 Office Visit Gagandeep Storm Atypical chest pain (Primary Dx); Romario Rubio MD H/O atrial flutter; [address] 1415 [facility] Uncontrolled type 2 diabetes mellitus without complication, without long-term current use of insulin (HRC); [place] [address] [address] Tobacco use disorder; [phone] [place] [phone] Drug-induced tremor Social History Tobacco Use [...] Comments Blood Pressure 132/85 06/21/2019 10:26 AM ORDERLY Pulse 92 06/21/2019 10:26 AM ORDERLY Temperature - - Respiratory Rate - - Oxygen Saturation - - Inhaled Oxygen Concentration - - Weight 90.7 kg (200 lb) 06/21/2019 10:26 AM ORDERLY Height 177.2 cm (5' 9.75) 06/21/2019 10:26 AM ORDERLY Body Mass Index 28.9 06/21/2019 10:26 AM ORDERLY documented in this encounter Progress Notes Gagandeep Hinojosa MD - 06/21/2019 10:20 AM CST ICD-10-CM 1. Atypical chest pain R07.89 2. H/O atrial flutter Z86.79 3. Uncontrolled type 2 diabetes mellitus without complication, without long-term current use of insulin ([facility]) E11.65 4. Tobacco use disorder ([facility]) F17.200 5. Drug-induced tremor G25.1 CHIEF COMPLAINT: [...] Noted ??? Non-proliferative diabetic retinopathy ([facility]) 05/02/2019 ??? Hyponatremia 01/16/2018 ??? Tinea versicolor 07/18/2015 ??? Tobacco use disorder ([facility]) 10/26/2012 ??? Anemia 05/02/2012 Overview Note: Anemia, unspecified ??? Microalbuminuria 02/04/2012 ??? OR, old ([facility]) 09/16/2011 ??? History of PTCA 09/16/2011 Overview Note: History of PTCA 04/2011 BMS RCA ??? Obesity, Class I, BMI 30-34.9 ([facility]) 09/16/2011 Overview Note: Body mass index is 31.16 kg/(m^2). ??? Hyperlipidemia with target LDL less than 70 ([facility]) 06/08/2011 Overview Note: Hyperlipidemia LDL goal < 70 ??? ASHD (arteriosclerotic heart disease) ([facility]) 05/04/2011 ??? Erectile dysfunction 01/22/2011 Overview Note: side effect Risperdal ??? Type 2 diabetes mellitus, uncontrolled ([facility]) 12/11/2010 Overview Note: Type II or unspecified type diabetes mellitus without mention of complication, uncontrolled ([facility]) ??? Dermatophytosis of body 09/04/2010 Class: Historical Overview Note: Tinea Corporis ??? Coronary atherosclerosis ([facility]) 12/22/2009 Overview Note: LW Modifier: mod RCA, negative nuclear stress test ; CAD ??? Nonspecific abnormal results of liver function study 12/22/2009 Overview Note: Liver Function Tests Abnormal ??? Bipolar I disorder ([facility]) 09/15/2005 Overview Note: LW Onset: [id number] ; Bipolar I Dis FAMILY HISTORY OR [...] 1 Tablet by mouth. 01/16/2018: Received from: [facility] Received Sig: Take 1 tablet by [...] 32 Units subcutaneously daily. 6 mL5 ??? [address] Carbonate 600 MG capsule Take 600 mg by mouth daily at bedtime. 01/16/2018: Received from: External Pharmacy Received Sig: TAKE ONE CAPSULE BY MOUTH AT BEDTIME 0 ??? Vitamin D, Ergocalciferol, 39995 units CAPS Take 50,000 Units by mouth. [...] enhancing his diabetes control Follow-up: 2 weeks RLY documented in this encounter Plan of Treatment [...] remor documented in this encounter Care Teams It Security Specialist Relationship Specialty Start Date End Date Gagandeep Hinojosa MD PCP - General 05/17/12 1415 [facility] [place] [address] Vane Zarate Psychiatrist Psychiatry 03/22/12 [facility] Mental Health Psychotherapist 08/04/17 [facility] Head Up Operator Helper 09/13/17 documented as of this encounter
--- OUTSIDE RECORDS SUMMARY | 2022-02-14 17:03 | XMS_ITS | Encounter Summary ---
:1970 Author Organization [employer] Address [address] [place] [address] Care Team Providers Name Role Phone Gagandeep Michaud MD Primary Care Provider Reason for Visit Reason Comments Refill metFORMIN (GLUCOPHAGE) 500 M G tablet [Pharmacy Med Name: METFORMIN 500MG TAB] Encounter Details Date Type Department Care Team Description 09/28/2018 Refill [facility] Gagandeep Michaud, Refrose mary l (metFORMIN Medicine MD (GLUCOPHAGE) [address] tablet [[place] [address] [place] [address] Name: METFORMIN 500MG [phone] (Wo rk) TAB]) Social History Tobacco Use [...] MOUTH TWICE DAILY WITH MEALS Interface, Out Clinc! Query - 09/28/2018 9:45 AM CDT metFORMIN [...] : 10.9 % on 07/27/2018 Powered by [employer], Reference: [id number], 09/28/2018 9:45:25 AM CDT, Pool: MANUEL MOORE ([id number]) documented in this encounter Plan of Treatment Not on filedocumented as of this encounter Visit Diagnoses Diagnosis Uncontrolled type 2 diabetes mellitus wi thout complication, without long-term current use of insulin documented in this encounter Care Teams Frothing Machine Operator Relationship Specialty Start Date End Date Gagandeep Michaud MD PCP - General 1/23/13 1415 [facility] [place] [address] Vane Zarate Psychiatrist Psychiatry 03/22/12 [facility] Mental Health Psychotherapist 08/04/17 [facility] Cutter Inspector 09/13/17 documented as of this encounter
--- OUTSIDE RECORDS SUMMARY | 2022-02-14 17:03 | XMS_ITS | Encounter Summary ---
:1970 Author Organization [employer] Address [address] [place] [address] Care Team Providers Name Role Phone Gagandeep Hinojosa MD Primary Care Provider Reason for Visit Reason Comments Appt. Work In Request APWI for today, Pt having lo w back pain to the left side, possible pinched nerve. Encounter Details Date Type Department Care Team Description 10/13/2018 Nurse Triage Gagandeep Storm Appt. Wo rk In Request Romario Rubio MD (APWI for today, Pt [address] [place] [address] Ave to the left side, [place] [address] possible pinched [phone] nerve. ) (Work) Social History Tobacco Use [...] wants to be seen Protocols used: BACK [id number] Analy Elias - 10/13/2018 8:52 AM CDT [...] on filedocumented in this encounter Care Teams Field Operations Farm Manager Relationship Specialty Start Date End Date Gagandeep Hinojosa MD PCP - General 05/17/[address] [facility] [place] [address] Vane Zarate Psychiatrist Psychiatry 03/22/12 [facility] Psychotherapist 08/04/17 [facility] Bit Bender 09/13/17 documented as of this encounter
--- OUTSIDE RECORDS SUMMARY | 2022-02-14 17:03 | XMS_ITS | Encounter Summary ---
:1970 Author Organization [employer] Address [address], [place] [address] Care Team Providers Name Role Phone Gagandeep Hinojosa MD Primary Care Provider Reason for Visit Reason Comments Patient Care Coordination Encounter Details Date Type Department Care Team Description 12/07/2018 Care Coord [facility] Deborah Rodrigues Patien t Care Phone Medicine [facility] Coordination [address] [place] [address] [place] [address] [place] [address] [place] [address] [phone] Social History Tobacco Use Types Packs/Day Years [...] [place]. [place] [phone] if he calls the clinic. documented in this encounter Plan of Treatment Not on filedocumented as of this encounter Visit Diagnoses Diagnosis Health skilled nursing, active care coordinati on - Primary documented in this encounter Care Teams Development Editor Relationship Specialty Start Date End Date Gagandeep Hinojosa MD PCP - General 05/17/12 5685 [facility] [place] [address] Vane Zarate Psychiatrist Psychiatry 03/22/12 [facility] Psychotherapist 08/04/17 [facility] Packaging Mechanic 09/13/17 documented as of this encounter
--- OUTSIDE RECORDS SUMMARY | 2022-02-14 17:03 | XMS_ITS | Encounter Summary ---
:1970 Author Organization [employer] Address [address] [place] [address] Care Team Providers Name Role Phone Gagandeep Hinojosa MD Primary Care Provider Reason for Visit Reason Comments APPOINTMENT REQUEST Encounter Details Date Type Department Care Team Description 02/22/2019 Care Coord Phone Judy Luke R N APPOINTMENT REQUEST [facility] 1415 [facility] 1415 [facility] [place] [address] [place] [phone] Social History Tobacco Use Types Packs/Day Years [...] for patient to call me back at [phone] POLISHER Judy Pittman RN - 02/22/2019 3:23 PM CDT Rustam??is overdue for DM follow up and needs to schedule (last DM follow up 07/27/18). ??A1c on??11/28/2018 was??10.6%, was due??for??DM follow up on 10/26/2018. POLISHER documented in this encounter Plan of Treatment Not on filedocumented as of this encounter Visit Diagnoses Not on filedocumented in this encounter Care Teams Sand Mill Operator Relationship Specialty Start Date End Date Gagandeep Hinojosa MD PCP - General 05/17/12 1415 [facility] [place] [address] Vane Zarate Psychiatrsamantha Psychiatry 03/22/12 [facility] Health Psychotherapist 08/04/17 [facility] Technical Analyst 09/13/17 documented as of this encounter
--- OUTSIDE RECORDS SUMMARY | 2022-02-14 17:03 | XMS_ITS | Encounter Summary ---
:1970 Author Organization [facility] Address [address] [address] Care Team Providers Name Role Phone Gagandeep Hinojosa MD Primary Care Provider Reason for Visit Reason Comments Other Encounter Details Date Type Department Care Team Description 02/07/2019 Initial Consult [facility] Vashti Rocha, En counter for other Therapy PT specified special [address] E examinations ([place] [address] [place], [place] Dx) [phone] Social History Tobacco Use Types Packs/Day Years [...] Primary documented in this encounter Care Teams Residential Collections Relationship Specialty Start Date End Date Gagandeep Hinojosa MD PCP - General 05/17/12 1415 [facility] [place] [address] Vane Zarate Psychiatrist Psychiatry 03/22/12 [facility] Mental Health Psychotherapist 08/04/17 [facility] Entry Analyst 09/13/17 documented as of this encounter
--- OUTSIDE RECORDS SUMMARY | 2022-02-14 17:03 | XMS_ITS | Encounter Summary ---
:1970 Author Organization [employer] Address [address] [address] Care Team Providers Name Role Phone Gagandeep Hinojosa MD Primary Care Provider Reason for Referral (Routine) - Closed Specialty Diagnoses / Procedures Referred By Contact Refer red To Contact Diagnoses Atrial fibrillation, unspecified type (HRC) Zara Fox MD Procedures OUTREACH ZIOPATCH RECORDER [address] [place], [place] [address] Referral ID Status Reason Start Date Expiration Date Visits Requ ested Visits Authorized [id number] Closed 07/12/2019 10/10/2020 1 1 Encounter Details Date Type Department Care Team Description 07/04/2019 Hospital Encounter [facility] l fibrillation, Center unspecified typ e (HRC) Electrocardiogram, (Primary Dx) Holter, Event Record er [address] [place] [address] Social History Tobacco Use Types [...] CDT unspecified type procedure a re in ([facility]) the results section. documented in this encounter Results OUTREACH ZIOPATCH RECORDER (07/04/2019 11:25 AM CDT) Narrative POCT - 07/04/2019 11:25 AM CDT Zio XT Final Report for Timur Krishnamurthy Date of : [birth year] (49 yrs) Gender: Male Prescribing Clinician: Dr. Ofelia Fox Referring Clinician: Dr. Scar Hinojosa Managing Location: [facility] Primary Indication (I48.91): Unspecified atrial fibrillation Enrollment [...] Primary documented in this encounter Care Teams Physics Professor Relationship Specialty Start Date End Date Gagandeep Hinojosa MD PCP - General 05/17/12 1415 [facility] [place] [address] Vane Zarate Psychiatrist Psychiatry 03/22/12 [facility] Psychotherapist 08/04/17 [facility] Reinforcing Rod Layer 09/13/17 documented as of this encounter
--- OUTSIDE RECORDS SUMMARY | 2022-02-14 17:03 | XMS_ITS | Encounter Summary ---
:1970 Author Organization [employer] Address [address] [place] [address] Care Team Providers Name Role Phone Gagandeep Hinojosa MD Primary Care Provider Reason for Visit Reason Comments LAB RESULTS Encounter Details Date Type Department Care Team Description 07/11/2019 Telephone [employer] [facility] Gagandeep Hinojosa MD LAB RESULTS 1415 [facility] . 1415 [place] [address] [place] [address] [phone] (Wo rk) Social History Tobacco Use Types [...] ZioPatch results Clinician Next Step: Route to [place] Nurse [place] to follow up Specific Request(s): 1. Results have been routed to providers results inbasket. Please review and advise. Jessica Tirado - 07/11/2019 3:45 PM CDT Test Results (Advise caller/patient can view test results in MyChart, if enrolled) What test are you calling about? Zio patch -pt request a call back today Primary Moving Picture Producer: Gagandeep Hinojosa MD Who ordered the test? [...] on filedocumented in this encounter Care Teams Forensic Toxicologist Relationship Specialty Start Date End Date Gagandeep Hinojosa MD PCP - General 05/17/12 1415 [place] [address] Vane Zarate Psychiatrist Psychiatry 03/22/12 [facility] Health Psychotherapist 08/04/17 [facility] Flight Test Mechanic 09/13/17 documented as of this encounter
--- OUTSIDE RECORDS SUMMARY | 2022-02-14 17:03 | XMS_ITS | Encounter Summary ---
:1970 Author Organization [employer] Address [address] [place] [address] Care Team Providers Name Role Phone Gagandeep Hinojosa MD Primary Care Provider Reason for Visit Reason Comments RESULTS, TEST Encounter Details Date Type Department Care Team Description 07/12/2019 Telephone [employer] [facility] Gagandeep Hinojosa MD RESULTS, TEST 1415 [facility] . 1415 [place] [address] [place] [address] [phone] (Wo rk) Social History Tobacco Use Types [...] filedocumented in this encounter Care Teams Machine Repairman Relationship Specialty Start Date End Date Gagandeep Hinojosa MD PCP - General 05/17/12 1415 [facility] [place] [address] Vane Zarate Psychiatrist Psychiatry 03/22/12 [facility] Mental Health Psychotherapist 08/04/17 [facility] Glass Lined Tank Repairer 09/13/17 documented as of this encounter
--- OUTSIDE RECORDS SUMMARY | 2022-02-14 17:03 | XMS_ITS | Encounter Summary ---
:1970 Author Organization [employer] Address [address] [address] Care Team Providers Name Role Phone Gagandeep Hinojosa MD Primary Care Provider Reason for Visit Reason Comments Patient Care Coordination Encounter Details Date Type Department Care Team Description 06/11/2019 Care Coord [facility] Deborah Rodrigues Patien t Care Phone Medicine [facility] Coordination [address] [place] [address] [place] [address] [phone] Social History Tobacco Use Types Packs/Day Years [...] Rodrigues LICSW - 06/11/2019 1:25 PM CST Rate Quoting Operator - Phone Call Contact with: Rustam [...] with plan of care and follow up. TY BAILIFF documented in this encounter Plan of Treatment Not on filedocumented as of this encounter Visit Diagnoses Diagnosis Health correction, active care coordinati on - Primary documented in this encounter Care Teams Buildings And Grounds Coordinator Relationship Specialty Start Date End Date Gagandeep Hinojosa MD PCP - General 05/17/[address] [place] [address] [place] [address] Vane Zarate Psychiatrist Psychiatry 03/22/12 [facility] Mental Health Psychotherapist 08/04/17 [facility] Draw Off Worker 09/13/17 documented as of this encounter
--- OUTSIDE RECORDS SUMMARY | 2022-02-14 17:03 | XMS_ITS | Encounter Summary ---
:1970 Author Organization [employer] Address [address] [address] Care Team Providers Name Role Phone Gagandeep Hinojosa MD Primary Care Provider Reason for Visit Reason Comments Patient Care Coordination Encounter Details Date Type Department Care Team Description 10/16/2018 Care Coord [facility] Deborah Rodrigues Patien t Care Phone Medicine [facility] Coordination [address] [place] [address] [place] [address] [phone] Social History Tobacco Use Types Packs/Day Years [...] are going. His phone went straight to [employer], so I left a detailed message [place]. [place] [phone] if he calls the clinic. documented in this encounter Plan of Treatment Not on filedocumented as of this encounter Visit Diagnoses Diagnosis Health assisted, active care coordinati on - Primary documented in this encounter Care Teams Inside Sales Manager Relationship Specialty Start Date End Date Gagandeep Hinojosa MD PCP - General 05/17/12 8485 [facility] [place] [address] Vane Zarate Psychiatrist Psychiatry 03/22/12 [facility] Mental [facility] Psychotherapist 08/04/17 [facility] Upholsterer Inside 09/13/17 documented as of this encounter
--- OUTSIDE RECORDS SUMMARY | 2022-02-14 17:03 | XMS_ITS | Encounter Summary ---
:1970 Author Organization [employer] Address [address] [place] [address] Care Team Providers Name Role Phone Gagandeep Michaud MD Primary Care Provider Encounter Details Date Type Department Care Team Description 05/21/2019 Refill Order [facility] Gagandeep Michaud MD 1415 [facility] . 1415 [facility] [place] [address] [place] [address] [phone] (Wo rk) Social History Tobacco Use Types [...] Labs to be addressed at future visit. OUS CHLORIDE OPERATOR Interface, Out Surescripts Prov Query - 05/21/2019 5:31 AM CST SCHEDULE THE FOLLOWING: - HBA1C (PN ONLY) BY: Now (Due as of 02/26/2019 for metFORMIN (GLUCOPHAGE) 500 MG tablet) - LAST QUALIFYING VISIT WITH GAGANDEEP MICHAUD: 05/02/2019 - NEXT SCHEDULED VISIT: None - NEXT LAB APPOINTMENT: None Powered by [employer], Reference: [id number], 05/21/2019 5:31:49 AM Jaxon GRANGER: MANUEL MOORE ([id number]) OUS CHLORIDE OPERATOR documented in this encounter Plan of Treatment Not on filedocumented as of this encounter Visit Diagnoses Diagnosis Encounter for long-term (current) use of medications - Primary Encounter for long-term (current) use of other medications documented in this encounter Care Teams Automobile Contract Clerk Relationship Specialty Start Date End Date Gagandeep Michaud MD PCP - General 05/17/12 1415 [facility] [place] [address] Vane Zarate Psychiatrist Psychiatry 03/22/12 [facility] Health Psychotherapist 08/04/17 [facility] Soil Science Professor 09/13/17 documented as of this encounter
--- OUTSIDE RECORDS SUMMARY | 2022-02-14 17:03 | XMS_ITS | Encounter Summary ---
:1970 Author Organization [employer] Address [address] [place] [address] Care Team Providers Name Role Phone Gagandeep Hinojosa MD Primary Care Provider Reason for Visit Reason Comments QUESTIONS, GENERAL Encounter Details Date Type Department Care Team Description 12/17/2018 Telephone [facility] Gagandeep Hinojosa, QUESTIONS, GENERAL [address] [place] [address] [place], [place] [address] (Wo rk) Social History Tobacco Use Types [...] appt is tomorrow. Confirmed 11:20 am at [facility] documented in this encounter Plan of Treatment Not on filedocumented as of this encounter Visit Diagnoses Not on filedocumented in this encounter Care Teams Nursing Education Specialist Relationship Specialty Start Date End Date Gagandeep Hinojosa MD PCP - General 05/17/12 1415 [facility] [place] [address] Vane Zarate Psychiatrist Psychiatry 03/22/12 [facility] Mental Health Psychotherapist 08/04/17 [facility] Grinder Mill Operator 09/13/17 documented as of this encounter
--- OUTSIDE RECORDS SUMMARY | 2022-02-14 17:03 | XMS_ITS | Encounter Summary ---
:1970 Author Organization [employer] Address [address], [place] [address] Care Team Providers Name Role Phone Gagandeep Hinojosa MD Primary Care Provider Reason for Referral (Routine) - Closed Specialty Diagnoses / Procedures Referred By Contact Refer red To Contact Diagnoses Chest pain, unspecified type Zara Fox MD Procedures Outreach Nuclear Study [address] [place], [place] [address] Referral ID Status Reason Start Date Expiration Date Visits Requ ested Visits Authorized [id number] Closed 06/19/2019 09/17/2020 1 1 CTOR FIXED INCOME Encounter Details Date Type Department Care Team Description 06/18/2019 Hospital Encounter Heart & Vascular Chest pain, unspecified Center Nuclear type (Primary Dx) Cardiology [address] [facility] [place] [address] Social History Tobacco Use Types [...] by mouth 0 12/2408/28/2019 MG capsule daily. [place] Carbonate 600 Take 600 mg by mouth [...] 50,000 Units by 0 11/01/2018 0210/2019 Ergocalciferol, 14279 mouth. units CAPS documented as of this encounter Procedure Notes Zayra Jamison - 06/18/2019 12:00 PM CSTAssociated Order(s): OUTREACH NUCLEAR STUDY Results NM CARDIAC MPI STRESS TEST ( (Order [id number]) STRESS TEST PHARMACOLOGICAL ( (Order [id number]) Original Order Diagnosis: Chest pain [R07.9 (ICD-10-CM)] Chest pain, acute, nonspecific Chest pain, acute, nonspecific Reading Provider(s) Cliff Weinstein DO PACs images are not viewable in [employer] Link. See text report below. STRESS TEST PHARMACOLOGICALOrder: [id number] Status: Final result Visible to patient: No (Not Released) Next appt: None Dx: Chest pain Linked study orders: NM CARDIAC MPI STRESS TEST (Order: [id number]) Details Reading Physician Reading Date Result Priority [...] patient. Patient Information Patient Name Timur Krishnamurthy ([id number]) Sex Male CTOR FIXED INCOME documented in this encounter Plan of Treatment Not on filedocumented as of this encounter Procedures Procedure Name Priority Date/Time Associated Diagnosis Comme nts OUTREACH NUCLEAR Routine 06/18/2019 12:00 PM Chest pain, Resu lts for this STUDY DIRECTOR FIXED INCOME unspecified type procedure a re in the results section. documented in this encounter Results Outreach Nuclear Study (06/18/2019 12:00 PM DIRECTOR FIXED INCOME) Narrative POCT - 06/18/2019 12:00 PM DIRECTOR FIXED INCOME Zayra Jamison ? 06/20/2019 11:21 AM Results NM CARDIAC MPI STRESS TEST ( [id number]) (Order [id number]) STRESS TEST PHARMACOLOGICAL (Accession A [id number]) (Order [id number]) Original Order Diagnosis: Chest pain [R07.9 (ICD-10-CM)] ??Chest p ain, acute, nonspecific Chest pain, acute, nonspecific Reading Provider(s) Cliff Weinstein DO PACs images are not viewable in [employer] Link. See text report below. STRESS TEST PHARMACOLOGICALOrder: [id number] Status: Final result ?? Visible to patie nt: No (Not Released) Next appt: None Dx: Chest pain Linked study orders: NM CARDIAC MPI STRE SS TEST (Order: [id number]) Details Reading Physician Reading Date Result Pr [...] humphrey. Patient Information Patient Name Timur Krishnamurthy ([id number]) Sex Male Procedure Note Zayra Jamison M - 06/18/2019 12:[address] Results NM CARDIAC MPI STRESS TEST ( [id number]) (Order [id number]) STRESS TEST PHARMACOLOGICAL (Accession A [id number]) (Order [id number]) Original Order Diagnosis: Chest pain [R07.9 (ICD-10-CM)] Chest sesar n, acute, nonspecific Chest pain, acute, nonspecific Reading Provider(s) Cliff Weinstein DO PACs images are not viewable in [employer] Link. See text report below. STRESS TEST PHARMACOLOGICALOrder: [id number] Status: Final result Visible to patient: No (Not Released) Next appt: None Dx: Chest pain Linked study orders: NM CARDIAC MPI STRE SS TEST (Order: [id number]) Details Reading Physician Reading Date Result Pr [...] humphrey. Patient Information Patient Name Timur Krishnamurthy ([id number]) Sex Male Zara Fox MD PN CARDIAC SERVICES ORDERABL ES Performing Organization Address City/State/ZIP Code Phon e Number POCT documented in this encounter Visit Diagnoses Diagnosis Chest pain, unspecified type - Primary documented in this encounter Care Teams Assistant Account Manager Relationship Specialty Start Date End Date Gagandeep Hinojosa MD PCP - General 05/17/[address] [place] [address] V[address] Zarate Psychiatrsamantha Psychiatry 03/22/12 [facility] Psychotherapist 08/04/17 [facility] Finger Cobbler 09/13/17 documented as of this encounter
--- OUTSIDE RECORDS SUMMARY | 2022-02-14 17:03 | XMS_ITS | Encounter Summary ---
:1970 Author Organization [employer] Address [address] [place] [address] Care Team Providers Name Role Phone Gagandeep Hinojosa MD Primary Care Provider Reason for Visit Reason Comments Diabetes Rash chest X 2 months Encounter Details Date Type Department Care Team Description 12/18/2018 Office Visit Gagandeep Stormea ve rsicolor (Primary Dx); Romario Rubio MD Essential hypertension; [address] [place] [place] [address] [facility] Uncontro lled type 2 diabetes mellitus without complication, without long-term current use of insulin (HRC); [address] 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, uncontrolled (HRC); [place] [address] [place] Tobacco use disorder; [phone] Uncontrolled type 2 diabetes mellitus wi th hyperglycemia (HRC); [phone] nursing home curre nt use of insulin (HRC); (Work) Type 2 diabetes mellitus without complic ation, with long-term current use of insulin (HRC); [phone] Essential hyper tension; (Fax) Hyperlipidemia, unspecified hyperlipidemia [...] CAPSULE BY MOUTH EVERY DAY 0 ??? [place] Carbonate 600 MG capsule Take 600 mg by mouth daily at bedtime. 01/16/2018: Received from: External Pharmacy Received Sig: TAKE ONE CAPSULE BY MOUTH AT BEDTIME 0 ??? metoprolol succinate (TOPROL XL) 50 MG 24 hour release tablet Take 1 Tablet by mouth daily. 90 Tablet 1 ??? multivitamin (THERAGRAN) tablet Take 1 Tablet by mouth. 01/16/2018: [facility] Received Sig: Take 1 tablet by [...] times a day. ??? Vitamin D, Ergocalciferol, 55581 units CAPS Take 50,000 Units by mouth. [...] 2 diabetes mellitus with neurological manifestations, uncontrolled ([facility]) E11.49 E11.65 5. Tobacco use disorder ([facility]) F17.200 PLAN: 1. 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 use of insulin (HRC) Encounter for long-term (current) use of insulin Type 2 diabetes mellitus without complic ation, with long-term current use of insulin (HRC) Hyperlipidemia, unspecified hyperlipidem ia type documented in this encounter Care Teams Liquid Hydrogen Plant Operator Relationship Specialty Start Date End Date Gagandeep Hinojosa MD PCP - General 05/17/12 [address] [facility] [place], [place] [address] Vane Zarate Psychiatrist Psychiatry 03/22/12 [facility] Psychotherapist 08/04/17 [facility] Patient Financial Rep 09/13/17 documented as of this encounter
--- OUTSIDE RECORDS SUMMARY | 2022-02-14 17:03 | XMS_ITS | Encounter Summary ---
:1970 Author Organization [facility] Address [address], [place] [address] Care Team Providers Name Role Phone Gagandeep Hinojosa MD Primary Care Provider Reason for Visit Reason Comments Post Hospital Discharge Follow Up Encounter Details Date Type Department Care Team Description 06/19/2019 Telephone [facility] Gagandeep Hinojosa, Post Hospital Discharge Medicine MD Follow Up 1415 [facility] . [address] [place] [address] [place] [address] [phone] (Wo rk) Social History Tobacco Use Types [...] follow up call completed. See doc flowsheet: HOSND for details. UETTING MACHINE OPERATOR documented in this encounter Plan of Treatment Not on filedocumented as of this encounter Visit Diagnoses Not on filedocumented in this encounter Care Teams Music Promoter Relationship Specialty Start Date End Date Gagandeep Hinojosa MD PCP - General 05/17/12 [address] [place] [address] Vane Zarate Psychiatrist Psychiatry 03/22/12 [facility] Mental [facility] Psychotherapist 08/04/17 [facility] Lead Nuclear Medicine Technologist 09/13/17 documented as of this encounter
--- OUTSIDE RECORDS SUMMARY | 2022-02-14 17:03 | XMS_ITS | Encounter Summary ---
:1970 Author Organization [employer] Address [address] [place] [address] Care Team Providers Name Role Phone Gagandeep Hinojosa MD Primary Care Provider Reason for Visit Reason Comments Forms DMV Cough Productive cough X 4 days Encounter Details Date Type Department Care Team Description 05/02/2019 Office Visit Gagandeep Storm Type 2 d iabetes mellitus with neurological manifestations, uncontrolled (HR) (Primary Dx); Romario Rubio MD Uncontrolled type 2 diabetes mellitus wi th hyperglycemia (HRC); [address] current use of ins ulin (HRC); [place] [address] [address] Type 2 diabetes mellitus with diabetic p olyneuropathy, with long-term current use of insulin (HR) [phone] [place] [id number] Social History Tobacco Use Types Packs/Day Years [...] Comments Blood Pressure 99/59 05/02/2019 11:31 AM EDGE STAINER MACHINE Pulse 70 05/02/2019 11:31 AM EDGE STAINER MACHINE Temperature 38.2 ??C (100.8 ??F) 05/02/2019 11:31 AM EDGE STAINER MACHINE Respiratory Rate - - Oxygen Saturation - - Inhaled Oxygen Concentration - - Weight 92.4 kg (203 lb 12.8 oz) 05/02/2019 11:31 AM EDGE STAINER MACHINE Height - - Body Mass Index 29.24 07/27/2018 1:49 PM CDT documented in this encounter Progress Notes Gagandeep Hinojosa MD - 05/02/2019 11:00 AM CST SUBJECTIVE: 49 y.o. 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 He is due for testing [...] CAPSULE BY MOUTH EVERY DAY 0 ??? [place] Carbonate 600 MG capsule Take 600 [...] 1 Tablet by mouth. 01/16/2018: [facility] Received Sig: Take 1 tablet by [...] times a day. ??? Vitamin D, Ergocalciferol, 11055 units CAPS Take 50,000 Units by mouth. [...] 2 diabetes mellitus with neurological manifestations, uncontrolled ([facility]) E11.49 E11.65 2. Uncontrolled type 2 diabetes mellitus with hyperglycemia ([facility]) E11.65 Microalb/Creat Ratio POCT Glycosylated Hemoglobin (HB A1C) Lipid Panel and Direct LDL(If Needed) Creatinine / GFR 3. moth exterminator current use of insulin ([facility]) Z79.4 4. Type 2 diabetes mellitus with diabetic polyneuropathy, with long-term current use of insulin ([facility]) E11.42 Z79.4 PLAN: 1. He will return for a more formal exam when he is feeling better. His DMV form was completed. The patient was discharged ambulatory and in stable condition. Diabetes measures: A1c Due: 1 months Foot Exam: 1 month Eye exam: Patient will schedule Cholesterol: 1 month Electrolytes: 1 month UMAR: 1 month Aspirin: yes Tobacco: no STAINER MACHINE documented in this encounter Plan of Treatment Not on filedocumented as of this encounter Results (ABNORMAL) Microalb/Creat Ratio (08/28/2019 2:10 PM CDT) athologist Signature Albumin, 265.4 mg/L 08/28/2019 [facility] Urine, Random 5:06 PM CDT LABORATORY Creatinine, 49 >20 mg/dL 08/28/2019 [facility] Urine, Random 5:06 PM CDT LABORATORY Albumin/Creati 542 (H) <30 mg/g 08/28/2019 [facility] nine Ratio, 5:06 PM CDT LABORATORY Urine, Random Specimen Anatomical Collection Method Collection Time Receive d Time (Source) Location / / Volume Laterality Urine,random Non-blood 08/28/2019 2:10 PM 0 2:10 Collection / CDT PM CDT Unknown Gagandeep Hinojosa MD LAB_1 Performing Organization Address City/State/[facility] [[email or web address]] Code Phon e Number [facility] [address] [place] [address] (ABNORMAL) Creatinine / GFR (08/28/2019 2:06 PM CDT) [facility] Method Time Signature Creatinine 0.70 (L) 0.73 - 08/28/2019 [facility] 1.18 mg/dL 5:02 PM CDT LABORATORY GFR, Estimated >60 >60 08/28/2019 [facility] mL/min/1.7 5:02 PM CDT LABORATORY 3m2 GFR, Est If >60 >60 08/28/2019 [facility] mL/min/1.7 5:02 PM CDT LABORATORY Latvian 3m2 Specimen Anatomical Collection Method / Collection Time Recei abimael Time (Source) Location / Volume Laterality Blood Venipuncture / 08/28/2019 2:06 08/28/2019 2:06 Unknown PM CDT PM CDT Gagandeep Hinojosa MD LAB_1 Performing Organization Address City/[facility] [[email or web address]] Code Phon e Number [facility] [address] [place] [address] (ABNORMAL) POCT Glycosylated Hemoglobin (HB A1C) (08/28/2019 2:06 PM CDT) Patholo Mila Method Time Signature Hemoglobin A1C 11.4 (H) <=5.6 % 08/28/2019 [facility] (Rapid) 2:15 PM CDT LABORATORY Specimen Anatomical Collection Method / Collection Time Recei abimael Time (Source) Location / Volume Laterality Blood Venipuncture / 08/28/2019 2:06 08/28/2019 2:06 Unknown PM CDT PM CDT Narrative [facility] - 08/28/2019 2:15 PM CDT This Rapid A1c test is designed for charlotte toring patients with an established diagnosis of diabetes mellitus. This rapid method is not suitable to establish the initial diagnosis of diabetes mellitus. Performe d using Point of Care Instrumentation. Gagandeep Hinojosa MD LAB_1 Performing Organization Address City/State/ZIP Code Phon e Number [facility] [address] [place] [address] [phone] documented in this encounter Visit Diagnoses Diagnosis 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, uncontrolled - Primary Uncontrolled type 2 diabetes mellitus wi th hyperglycemia (HRC) snf current use of insulin (HRC) Encounter for long-term (current) use of insulin Type 2 diabetes mellitus with diabetic p olyneuropathy, with long-term current use of insulin (HRC) documented in this encounter Care Teams Circus Laborer Relationship Specialty Start Date End Date Gagandeep Hinojosa MD PCP - General 05/17/12 [address] [place] [address] Vane Zarate Psychiatrsamantha Psychiatry 03/22/12 [facility] Psychotherapist 08/04/17 [facility] Control Clerk 09/13/17 documented as of this encounter
--- OUTSIDE RECORDS SUMMARY | 2022-02-14 17:03 | XMS_ITS | Encounter Summary ---
:1970 Author Organization [employer] Address [address], [place] [address] Care Team Providers Name Role Phone Gagandeep Hinojosa MD Primary Care Provider Reason for Visit Reason Comments Appt. Needed medicare wellness Encounter Details Date Type Department Care Team Description 08/06/2019 [facility] Gagandeep Hinojosa, Appt. Needed (medicare Medicine MD wellness) 14[address] [facility] . [address] [place] [address] [place] [address] [phone] (Wo rk) Social History Tobacco Use Types [...] on filedocumented in this encounter Care Teams Dish Carrier Relationship Specialty Start Date End Date Gagandeep Hinojosa MD PCP - General 05/17/12 [facility] [place] [address] Vane Zarate Psychiatrist Psychiatry 03/22/12 [facility] Psychotherapist 08/04/17 [facility] Forming Roll Operator 09/13/17 documented as of this encounter
--- OUTSIDE RECORDS SUMMARY | 2022-02-14 17:03 | XMS_ITS | Encounter Summary ---
:1970 Author Organization [employer] Address [address] [place] [address] Care Team Providers Name Role Phone Gagandeep Hinojosa MD Primary Care Provider Reason for Visit Reason Comments HYPERGLYCEMIA Encounter Details Date Type Department Care Team Description 12/09/2018 Nurse Triage [place] [facility] Gagandeep Hinojosa MD HYPERGLYCEMIA [address] [place] [address] [phone] Social History Tobacco Use Types Packs/Day Years [...] speech) Protocols used: DIABETES - HIGH BLOOD [id number] Pt is calling to report that his [...] gives verbal consent for nursing to contact or s Rosetta regarding his current situation and [...] home now and will drive him to [facility] now. PNNL called pts to [...] on filedocumented in this encounter Care Teams Managing Attorney Relationship Specialty Start Date End Date Gagandeep Hinojosa MD PCP - General 05/17/12 [facility] [place] [address] Vane Zarate Psychiatrist Psychiatry 03/22/12 [facility] Psychotherapist 08/04/17 [facility] Assistance Coordinator 09/13/17 documented as of this encounter
--- OUTSIDE RECORDS SUMMARY | 2022-02-14 17:03 | XMS_ITS | Encounter Summary ---
:1970 Author Organization [employer] Address [address] [place] [address] Care Team Providers Name Role Phone Gagandeep Hinojosa MD Primary Care Provider Reason for Visit Reason Comments MANTOUX/PPD READ Encounter Details Date Type Department Care Team Description 06/14/2019 Nursing Visit [facility] Encounter for PPD skin Medicine test reading (Primary 14[address] [facility] . Dx) [place] [address] Social History Tobacco Use Types Packs/Day Years [...] imary documented in this encounter Care Teams Licensed Electrician Relationship Specialty Start Date End Date Gagandeep Hinojosa MD PCP - General 05/17/12 [address] [facility] [place] [address] Vane Zarate Psychiatrist Psychiatry 03/22/12 [facility] Health Psychotherapist 08/04/17 [facility] Core Extruder 09/13/17 documented as of this encounter
--- OUTSIDE RECORDS SUMMARY | 2022-02-14 17:03 | XMS_ITS | Encounter Summary ---
:1970 Author Organization [employer] Address [address] [address] Care Team Providers Name Role Phone Gagandeep Michaud MD Primary Care Provider Reason for Visit Reason Onset Date Comments Refill 08/14/2019 busPIRone (BUSPAR) 1 0 MG tablet Encounter Details Date Type Department Care Team Description 08/14/2019 Refill [facility] Gagandeep Michaud, Refil l (busPIRone Medicine (BUSPAR) 10 MG tablet) 1415 [facility] . [address] [place] [address] [place], [place] [address] (Wo rk) Social History Tobacco Use Types [...] visit: 08/28/2019 (in Family Practice) Powered by [employer], Reference: [id number], 08/14/2019 4:21:05 PM CDT, Pool: MANUEL MOORE ([id number]) documented in this encounter Plan of Treatment Not on filedocumented as of this encounter Visit Diagnoses Not on filedocumented in this encounter Care Teams Bobbin Fixer Relationship Specialty Start Date End Date Gagandeep Michaud MD PCP - General 05/17/12 [facility] [place] [address] Vane Zarate Psychiatrist Psychiatry 03/22/12 [facility] Mental Health Psychotherapist 08/04/17 [facility] Machine Brush Maker 09/13/17 documented as of this encounter
--- OUTSIDE RECORDS SUMMARY | 2022-02-14 17:03 | XMS_ITS | Encounter Summary ---
:1970 Author Organization [employer] Address [address] [address] Care Team Providers Name Role Phone Gagandeep Hinojosa MD Primary Care Provider Reason for Visit Reason Onset Date Comments EXAM,NOS 02/07/2019 Encounter Details Date Type Department Care Team Description 02/07/2019 Office Visit Tim Peterson MD [address] [place] [address] Health examination of Medicine Nurse, [facility] defined subpopulation [address] [facility] E (Primary Dx) [place] [address] Social History Tobacco Use Types Packs/Day [...] Primary documented in this encounter Care Teams Manufacturing Quality Inspector Relationship Specialty Start Date End Date Gagandeep Hinojosa MD PCP - General 05/17/12 [facility] [place] [address] Vane Zarate Psychiatrsamantha Psychiatry 03/22/12 [facility] Health Psychotherapist 08/04/17 [facility] Coning Machine Operator 09/13/17 documented as of this encounter
--- OUTSIDE RECORDS SUMMARY | 2022-02-14 17:03 | XMS_ITS | Encounter Summary ---
:1970 Author Organization [employer] Address [address] [place] [address] Care Team Providers Name Role Phone Gagandeep Hinojosa MD Primary Care Provider Reason for Visit Reason Comments Lab Questions Encounter Details Date Type Department Care Team Description 12/11/2018 Telephone [employer] [facility] Gagandeep Hinojosa MD Lab Questions 1415 [facility] . [address] [facility] [place] [address] [place] [address] [phone] (Wo rk) Social History Tobacco Use Types [...] (Advise caller/patient can view test results in [employer], if enrolled) What test are you calling about? A1C from 11/28/18. Primary Waiter/Waitress Third Class: Gagandeep Hinojosa MD Who ordered the test? (include first & last name) Gagandeep Hinojosa MD When and where was the test done? 11/28/18 - [facility] Additional comments (related to the above concern): [...] filedocumented in this encounter Care Teams Car Sales Representative Relationship Specialty Start Date End Date Gagandeep Hinojosa MD PCP - General 05/17/12 [facility] [facility] [place] [address] Vane Zarate Psychiatrsamantha Psychiatry 03/22/12 [facility] Psychotherapist 08/04/17 [facility] Recruitment Assistant 09/13/17 documented as of this encounter
--- OUTSIDE RECORDS SUMMARY | 2022-02-14 17:03 | XMS_ITS | Encounter Summary ---
:1970 Author Organization [employer] Address [address] [place] [address] Care Team Providers Name Role Phone Gagandeep Michaud MD Primary Care Provider Reason for Visit Reason Comments Refill metFORMIN (GLUCOPHAGE) 500 M G tablet [Pharmacy Med Name: metFORMIN HCl 500 MG Oral Tablet] Encounter Details Date Type Department Care Team Description 05/21/2019 Refill [place] [facility] Gagandeep Michaud, Refil l (metFORMIN Medicine MD (GLUCOPHAGE) [address] tablet [[place] [address] [place] [address] Name: metFORMIN HCl 500 [phone] (Wo rk) MG Oral Tablet]) Social History [...] TABLETS BY MOUTH TWICE DAILY WITH MEALS AL SERVICES AIDE Interface, Out famPlus Prov Query - 05/21/2019 5:31 AM CST [...] (Sent to [facility]) Powered by [employer], Reference: [id number], 05/21/2019 5:31:48 AM ELKIN, Jaxon: MANUEL REFILL ([id number]) AL SERVICES AIDE documented in this encounter Plan of Treatment Not on filedocumented as of this encounter Visit Diagnoses Diagnosis Uncontrolled type 2 diabetes mellitus wi thout complication, without long-term current use of insulin documented in this encounter Care Teams Tank Farm Gauger Relationship Specialty Start Date End Date Gagandeep Michaud MD PCP - General 05/17/12 [facility] [place] [address] Vane Zarate Psychiatrsamantha Psychiatry 03/22/12 [facility] Mental [facility] Psychotherapist 08/04/17 [facility] Corporate Logistics Manager 09/13/17 documented as of this encounter
--- OUTSIDE RECORDS SUMMARY | 2022-02-14 17:03 | XMS_ITS | Encounter Summary ---
:1970 Author Organization [facility] Address [address] [place] [address] Care Team Providers Name Role Phone Gagandeep Hinojosa MD Primary Care Provider Reason for Visit Reason Comments Disease Registry Encounter Details Date Type Department Care Team Description 02/28/2019 [facility] H[facility] MD Disease Registry [address] . [address] [place] [address] [place] [address] [phone] (Wo rk) Social History Tobacco Use Types [...] FOR PT TO CALL BACK TO SCHEDULE [phone] T HAMMER MACHINE OPERATOR Isaías Blair LPN - 02/28/2019 2:23 PM CST Patient is overdue for Diabetes Mellitus labs please call and make a lab only appointment T HAMMER MACHINE OPERATOR documented in this encounter Plan of Treatment Not on filedocumented as of this encounter Visit Diagnoses Not on filedocumented in this encounter Care Teams Enamel Cracker Relationship Specialty Start Date End Date Gagandeep Hinojosa MD PCP - General 05/17/12 14[address] [facility] KAT[place]NA Gerber [address] Vane Zarate Psychiatrist Psychiatry 03/22/12 [facility] Mental Health Psychotherapist 08/04/17 [facility] Carrier Packer 09/13/17 documented as of this encounter
--- OUTSIDE RECORDS SUMMARY | 2022-02-14 17:03 | XMS_ITS | Encounter Summary ---
:1970 Author Organization [employer] Address [address] [place] [address] Care Team Providers Name Role Phone Gagandeep Michaud MD Primary Care Provider Reason for Visit Reason Comments Refill amLODIPine (NORVASC) 10 MG t ablet [Pharmacy Med Name: AMLODIPINE 10MG TAB] Encounter Details Date Type Department Care Team Description 09/28/2018 Refill Gagandeep Storm Refil l (amLODIPine Medicine (NORVASC) 10 MG tablet [address] [Pharmacy Med Name: KATIANA Vigil [address] KAT[place]NA VIGIL [address] AMLODIPINE 10MG TAB]) [phone] (Wo rk) Social History Tobacco Use Types [...] for short term. ?? Please advise if longterm supply is appropriate ?? Last qualifying visit: [...] 81 mm Hg on 08/07/2018 Powered by [employer], Reference: [id number], 09/28/2018 9:45:25 AM CDT, Pool: MANUEL LANDAILL ([id number]) documented in this encounter Plan of Treatment Not on filedocumented as of this encounter Visit Diagnoses Diagnosis Essential hypertension (HRC) Unspecified essential hypertension Uncontrolled type 2 diabetes mellitus wi thout complication, without long-term current use of insulin documented in this encounter Care Teams Data Entry Machine Operator Relationship Specialty Start Date End Date Gagandeep Michaud MD PCP - General 05/17/12 1415 [facility] KAT[place] Gerber [address] Vane Zarate Psychiatrist Psychiatry 03/22/12 [facility] Mental Health Psychotherapist 08/04/17 [facility] Roller Stitcher 09/13/17 documented as of this encounter
--- OUTSIDE RECORDS SUMMARY | 2022-02-14 17:03 | XMS_ITS | Encounter Summary ---
:1970 Author Organization [employer] Address [address] [place] [address] Care Team Providers Name Role Phone Gagandeep [...] Type Department Care Team Description 08/10/2019 Refill [facility] Gagandeep Michaud, Refil l (atorvastatin Medicine MD (LIPITOR) 80 MG tablet [address] 1415 [facility] [Pharmacy Med Name: KATIANA Vigil [address] [place] [address] Atorvastatin Calcium 80 [phone] (Wo rk) MG Oral Tablet]; metoprolo l [...] MICHAUD) Next scheduled visit: None Powered by [facility], Reference: [id number], 08/10/2019 5:31:42 AM CDT, Pool: MANUEL REFILL ([id number]) metoprolol succinate (TOPROL XL) 50 MG 24 [...] 85 mm Hg on 06/21/2019 Powered by [employer], Reference: [id number], 08/10/2019 5:31:42 AM CDT, Pool: MANUEL MOORE ([id number]) documented in this encounter Plan of Treatment Not on filedocumented as of this encounter Visit Diagnoses Diagnosis ASHD (arteriosclerotic heart disease) (H RC) Coronary atherosclerosis of unspecified type of vessel, benton or graft Hyperlipidemia LDL goal < 70 Other and unspecified hyperlipidemia Essential hypertension (HRC) Unspecified essential hypertension documented in this encounter Care Teams Supervisor Shuttle Preparation Relationship Specialty Start Date End Date Gagandeep Michaud MD PCP - General 05/17/12 [facility] [place] [address] Vane Zarate Psychiatrist Psychiatry 03/22/12 [facility] Psychotherapist 08/04/17 [facility] CM Metrologist 09/13/17 documented as of this encounter
--- OUTSIDE RECORDS SUMMARY | 2022-02-14 17:03 | XMS_ITS | Encounter Summary ---
:1970 Author Organization [employer] Address [address] [place] [address] Care Team Providers Name Role Phone Gagandeep Hinojosa MD Primary Care Provider Reason for Visit Reason Comments DM/VASC/HTN Registry Call 1 Encounter Details Date Type Department Care Team Description 04/19/2019 Telephone [facility] Gagandeep Hinojosa, DM/VA SC/HTN Registry Medicine MD Call 1 1415 [facility] . [address] [place] [address] [place], [place] [address] (Wo rk) Social History Tobacco Use Types [...] and left detailed msg below, giving patient [phone] to call and schedule labs. Joelle Carrasquillo MA 3:43 PM 04/19/2019 RTAINMENT AGENT Abel Novak MA - 04/19/2019 2:37 PM CST Pt is overdue for diabetes labs, please call and make pt a lab only appt.Pt does not need to be fasting unless they are do for Chol and would like too. RTAINMENT AGENT documented in this encounter Plan of Treatment Not on filedocumented as of this encounter Visit Diagnoses Not on filedocumented in this encounter Care Teams Automation Controls Engineer Relationship Specialty Start Date End Date Gagandeep Hinojosa MD PCP - General 05/17/[address] [place] [address] KATIANA Gerber [id number] Vane Zarate Psychiatrist Psychiatry 03/22/12 [facility] Mental Health Psychotherapist 08/04/17 [facility] Configuration Release Manager 09/13/17 documented as of this encounter
--- OUTSIDE RECORDS SUMMARY | 2022-02-14 17:03 | XMS_ITS | Encounter Summary ---
:1970 Author Organization [employer] Address [address] [address] Care Team Providers Name Role Phone Gagandeep Hinojosa MD Primary Care Provider Reason for Visit Reason Comments Post Hospital Discharge Follow Up Encounter Details Date Type Department Care Team Description 12/22/2018 [facility]ag[facility] Hinojosa, Post Hospital Discharge Medicine MD Follow Up 1415 [facility] . [address] [place] [address] [place] [address] [phone] (Wo rk) Social History Tobacco Use Types [...] message to call back to nurse line #[phone] Aniyah Guillen - 12/22/2018 11:48 AM CDT Pt returning call. Told him about message below and informed him he will be getting a call back Danelle Garcia RN - 12/22/2018 11:36 AM CDT Called patient for post discharge follow up, no answer. Unable to leave voicemail for patient, will attempt to call patient again. Admitted to [facility] 12/20 for intentional acute drug overdose. No new meds. Stopped buspirone, quetiapine, and risperidone. Has f/u appt 12/26. documented in this encounter Plan of Treatment Not on filedocumented as of this encounter Visit Diagnoses Not on filedocumented in this encounter Care Teams Sfdc Architect Relationship Specialty Start Date End Date Gagandeep Hinojosa MD PCP - General 05/17/12 1415 [facility] K[place] Gerber [address] Vane Zarate Psychiatrist Psychiatry 03/22/12 [facility] Mental Health Psychotherapist 08/04/17 [facility] Care Consultant 09/13/17 documented as of this encounter
--- OUTSIDE RECORDS SUMMARY | 2022-02-14 17:03 | XMS_ITS | Encounter Summary ---
:1970 Author Organization [employer] Address [address] [place] [address] Care Team Providers Name Role Phone Gagandeep [...] Medicine MD Joanne (Pt has appointment [address] 14[address] [facility] tomorrow for f/u [place] Vigil [address] [address] diabetes, would like [phone] KATIANA VIGIL [phone] , to discuss [phone] possible diagno sis of (Work) Parkinson's, (declined [...] 1 week Protocols used: WEAKNESS (GENERALIZED) AND [id number] AL TECHNICIAN Analy Elias - 05/30/2019 3:32 PM CST [...] a pool number. Please sign/close phone encounter AL TECHNICIAN documented in this encounter Plan of Treatment Not on filedocumented as of this encounter Visit Diagnoses Not on filedocumented in this encounter Care Teams Sleeve Fixer Relationship Specialty Start Date End Date Gagandeep Hinojosa MD PCP - General 05/17/12 1415 [facility] KATIANA Gerber [address]259 Vane Zarate Psychiatrsamantha Psychiatry 03/22/12 [facility] Psychotherapist 08/04/17 [facility] Professor Of Medicine 09/13/17 documented as of this encounter
--- OUTSIDE RECORDS SUMMARY | 2022-02-14 17:03 | XMS_ITS | Encounter Summary ---
:1970 Author Organization [employer] Address [address] [place] [address] Care Team Providers Name Role Phone Gagandeep Hinojosa MD Primary Care Provider Encounter Details Date Type Department Care Team Description 11/28/2018 Lab Visit [facility] Encounter for long-term [address] (current) use of other [place] Vigil [phone] medications (Primary Dx) [phone] Social History Tobacco Use Types Packs/Day Years [...] Complete Blood Count-W/Diff (11/28/2018 11:01 AM CDT) [facility] Method Time Signature WBC 8.4 3.5 - 10.5 11/28/2018 [facility] x10(9)/L 11:07 AM CDT LABORATORY RBC 4.90 4.32 - 11/28/2018 [facility] 5.72 11:07 AM CDT LABORATORY x10(12)/L Hemoglobin 14.7 13.5 - 11/28/2018 [facility] 17.5 g/dL 11:07 AM CDT LABORATORY HCT 40.2 38.8 - 11/28/2018 [facility] 50.0 % 11:07 AM CDT LABORATORY MCV 82.0 80.0 - 11/28/2018 [facility] 100.0 fL 11:07 AM CDT LABORATORY MCH 30.0 27.6 - 11/28/2018 [facility] 33.3 pg 11:07 AM CDT LABORATORY MCHC 36.6 (H) 31.5 - 11/28/2018 [facility] 35.2 g/dL 11:07 AM CDT LABORATORY RDW 12.1 11.9 - 11/28/2018 [facility] 15.5 % 11:07 AM CDT LABORATORY Platelets 253 150 - 450 11/28/2018 [facility] x10(9)/L 11:07 AM CDT LABORATORY Neutrophil 5.0 1.7 - 7.0 11/28/2018 [facility] Absolute 10(9)/L 11:07 AM CDT LABORATORY Lymphocyte 2.5 1.0 - 4.8 11/28/2018 [facility] Absolute 10(9)/L 11:07 AM CDT LABORATORY Monocytes 0.6 0.2 - 0.9 11/28/2018 [facility] Absolute 10(9)/L 11:07 AM CDT LABORATORY Eosinophil 0.2 0.0 - 0.5 11/28/2018 [facility] Absolute 10(9)/L 11:07 AM CDT LABORATORY Basophil 0.0 0.0 - 0.3 11/28/2018 [facility] Absolute 10(9)/L 11:07 AM CDT LABORATORY Specimen Anatomical Collection Method / Collection Time Recei abimael Time (Source) Location / Volume Laterality Blood Venipuncture / 11/28/2018 11:01 9 Unknown AM CDT 11:01 AM CDT Vane Zarate MD LAB_1 Performing Organization Address City/State/ZIP Code Phon e Number [facility] [address] [place] [address] (ABNORMAL) Carnitine Free And Total (11/28/2018 11:01 AM CDT) P athologist Signature Carnitine 0.6 0.1 - 1.0 11/30/2018 [facility] Kristen/Free 8:38 AM CDT LABORATORIES Ratio Comment: Performed by [facility], [address] [facility] [place] [address] [email or web address], Bull Sultana MD, Lab. Director Carnitine Esterified 11 5 - 29 umol/L 11/30/2018 8:38 AM [employer] CDT Carnitine, Free 18 (L) 25 - 60 umol/L 11/30/2018 8:38 AM [employer] CDT Carnitine, Total 29 (L) 34 - 86 umol/L 11/30/2018 8:38 AM [employer] CDT Comment: Test developed and characteristics deter mined by [facility]. See Compliance Statement B : [email or web address] Specimen Anatomical Collection Method / Collection Time Recei abimael Time (Source) Location / Volume Laterality Blood Venipuncture / 11/28/2018 11: 9 Unknown AM CDT 11:01 AM CDT Vane Zarate MD LAB_1 Performing Organization Address City/State/ZIP Code Phon e Number [facility] [address] [place], [place] [id number] CK, Total (11/28/2018 11:01 AM CDT) P athologist Signature CK, Total 51 30 - 200 11/28/2018 [place] U/L 3:19 PM CDT LABORATORY Specimen Anatomical Collection Method / Collection Time Recei abimael Time (Source) Location / Volume Laterality Blood Venipuncture / 11/28/2018 11: 9 Unknown AM CDT 11:01 AM CDT Vane Zarate MD LAB_1 Performing Organization Address City/State/ZIP Code Phon e Number [facility] [address] [place] [address] (ABNORMAL) Hgb A1C (11/28/2018 11:01 AM CDT) Patholo gist Method Time Signature Hemoglobin A1C 10.6 (H) <=5.6 % 11/28/2018 [facility] 5:00 PM CDT LABORATORY Specimen Anatomical Collection Method / Collection Time Recei abimael Time (Source) Location / Volume Laterality Blood Venipuncture / 11/28/2018 11:01 9 Unknown AM CDT 11:01 AM CDT Narrative [facility] - 11/28/2018 5:00 P M CDT For patients not previously diagnosed with diabetes: 5.7-6.4%: Increased risk for diabetes 6.5% and greater: Diagnostic for diabete s For patients diagnosed with diabetes: <8.0%: Goal of therapy for ages 18-75 Clinicians may recommend a higher or low er goal for specific individuals. Vane Zarate MD LAB_1 Performing Organization Address City/State/ZIP Code Phon e Number [facility] [address] [place] [address] Potassium (11/28/2018 11:01 AM CDT) P athologist Signature Potassium 5.0 3.5 - 5.1 11/28/2018 [facility] mmol/L 3:19 PM CDT LABORATORY Specimen Anatomical Collection Method / Collection Time Recei abimael Time (Source) Location / Volume Laterality Blood Venipuncture / 11/28/2018 11:01 9 Unknown AM CDT 11:01 AM CDT Vane Zarate MD LAB_1 Performing Organization Address [facility] Code Phon e Number [facility] [address] [place] [address] (ABNORMAL) Sodium (11/28/2018 11:01 AM CDT) P athologist Signature Sodium 135 (L) 136 - 145 11/28/2018 [facility] mmol/L 3:19 PM CDT LABORATORY Specimen Anatomical Collection Method / Collection Time Recei abimael Time (Source) Location / Volume Laterality Blood Venipuncture / 11/28/2018 11:01 9 Unknown AM CDT 11:01 AM CDT Vane Zarate MD LAB_1 Performing Organization Address [facility] Phon e Number [facility] [address] [place] [address] Creatinine / GFR (11/28/2018 11:01 AM CDT) P athologist Signature Creatinine 0.80 0.73 - 11/28/2018 [facility] 1.18 mg/dL 3:19 PM CDT LABORATORY GFR, Estimated >60 >60 11/28/2018 [facility] mL/min/1.7 3:19 PM CDT LABORATORY 3m2 GFR, Est If >60 >60 11/28/2018 [facility] mL/min/1.7 3:19 PM CDT LABORATORY [place] 3m2 Specimen Anatomical Collection Method / Collection Time Recei abimael Time (Source) Location / Volume Laterality Blood Venipuncture / 11/28/2018 11: 9 Unknown AM CDT 11:01 AM CDT Vane Zarate MD LAB_1 Performing Organization Address City/[facility]/ZIP Code Phon e Number [facility] [address] [place] [address] T4, Total (11/28/2018 11:01 AM CDT) P athologist Signature T4, Total 6.5 5.0 - 11.0 11/28/2018 [facility] mcg/dL 7:37 PM CDT [facility] Specimen Anatomical Collection Method / Collection Time Recei abimael Time (Source) Location / Volume Laterality Blood Venipuncture / 11/28/2018 11: 9 Unknown AM CDT 11:01 AM CDT Vane Zarate MD LAB_1 Performing Organization Address City/[facility]/ZIP Code Phon e Number [address] [address] (ABNORMAL) T3, Total (11/28/2018 11:01 AM CDT) Analysis Performed At Patho logist Time Signature Triiodothyroni 75 (L) 80 - 200 11/29/2018 [facility] ne, Total ng/dL 11:38 AM CDT LABORATORIES (Total T3) Comment: REFERENCE INTERVAL: Triiodothyronine, To ora (Total T3) Access complete set of age- and/or gende r-specific reference intervals for this test in the [facility] Lab[facility] ratory Test Directory ([employer]). Performed by [facility], [address] [place] [id number] www.[email or web address], Bull Sultana MD, Lab. Director Specimen Anatomical Collection Method / Collection Time Recei abimael Time (Source) Location / Volume Laterality Blood Venipuncture / 11/28/2018 11:01 9 Unknown AM CDT 11:01 AM CDT Vane Zarate MD LAB_1 Performing Organization Address City/State/ZIP Code Phon e Number [facility] [address] [place], [place] [address] TSH (11/28/2018 11:01 AM CDT) P athologist Signature TSH, Sensitive 0.85 0.30 - 11/28/2018 [facility] 4.50 4:19 PM CDT LABORATORY uIU/mL Specimen Anatomical Collection Method / Collection Time Recei abimael Time (Source) Location / Volume Laterality Blood Venipuncture / 11/28/2018 11:01 9 Unknown AM CDT 11:01 AM CDT Vane Zarate MD LAB_1 Performing Organization Address City/State/ZIP Code Phon e Number [facility] [address] [place] [address] documented in this encounter Visit Diagnoses Diagnosis Encounter for long-term (current) use of other medications - Primary documented in this encounter Care Teams Passenger Coach Driver Relationship Specialty Start Date End Date Gagandeep Hinojosa MD PCP - General 05/17/12 [address] [place], [place] [address] Vane Zarate Psychiatrist Psychiatry 03/22/12 [facility] Psychotherapist 08/04/17 [facility] Production Floater 09/13/17 documented as of this encounter
--- OUTSIDE RECORDS SUMMARY | 2022-02-14 17:03 | XMS_ITS | Encounter Summary ---
:1970 Author Organization [employer] Address [address], [place] [address] Care Team Providers Name Role Phone Gagandeep Michaud MD Primary Care Provider Reason for Visit Reason Onset Date Comments Refill 08/14/2019 busPIRone (BUSPAR) 1 0 MG tablet Encounter Details Date Type Department Care Team Description 08/14/2019 Refill [facility] Gagandeep Michaud, Rochelle l (busPIRone Medicine (BUSPAR) 10 MG tablet) 1415 [facility] . [address] [place] [address] [place], [place] [address] (Wo rk) Social History Tobacco Use Types [...] 85 mm Hg on 06/21/2019 Powered by [employer], Reference: [id number], 08/14/2019 4:19:51 PM CDT, Pool: MANUEL MOORE ([id number]) documented in this encounter Plan of Treatment Not on filedocumented as of this encounter Visit Diagnoses Not on filedocumented in this encounter Care Teams Hand Molder Relationship Specialty Start Date End Date Gagandeep Michaud MD PCP - General 05/17/12 [facility] [facility] [address] Vane Zarate Psychiatrist Psychiatry 03/22/12 [facility] Psychotherapist 08/04/17 [facility] Legal Collector 09/13/17 documented as of this encounter
--- OUTSIDE RECORDS SUMMARY | 2022-02-14 17:03 | XMS_ITS | Encounter Summary ---
:1970 Author Organization [employer] Address [address], [place] [address] Care Team Providers Name Role Phone Gagandeep Hinojosa MD Primary Care Provider Encounter Details Date Type Department Care Team Description 07/23/2019 Orders Only Initial Department Provider, Magda, [facility] YADY JEFFRIES MD [place], [place] [address] Interface provider [phone] [place] [address] Social History Tobacco Use Types Packs/Day Years [...] on filedocumented in this encounter Care Teams Taproom Attendant Relationship Specialty Start Date End Date Gagandeep Hinojosa MD PCP - General 05/17/12 [address] [place] [address] Vane Zarate Psychiatrist Psychiatry 03/22/12 [facility] Mental Health Psychotherapist 08/04/17 [facility] Elementary Educator 09/13/17 documented as of this encounter
--- OUTSIDE RECORDS SUMMARY | 2022-02-14 17:03 | XMS_ITS | Encounter Summary ---
:1970 Author Organization [employer] Address [address] [place] [address] Care Team Providers Name Role Phone Gagandeep Hinojosa MD Primary Care Provider Reason for Visit Reason Comments Follow-up Encounter Details Date Type Department Care Team Description 06/11/2019 Office Visit Gagandeep Storm r for work capability assessment (Primary Dx); Romario Rubio MD Screening for tuberculosis; [address] 14[address] [facility] [place] [address] Ave [phone] [place], [place] [address] Social History Tobacco Use [...] Comments Blood Pressure 137/80 06/11/2019 1:00 PM PLASTIC SHAPER Pulse 95 06/11/2019 1:00 PM PLASTIC SHAPER Temperature - - Respiratory Rate - - Oxygen Saturation - - Inhaled Oxygen Concentration - - Weight 93.9 kg (207 lb) 06/11/2019 1:00 PM PLASTIC SHAPER Height - - Body Mass Index 29.7 [...] although he reports his psychiatrist is nearing residential. He has had significant psychiatric breaks including bipolar dissociations, etc. and I would be reluctant to modify his medications. PROBLEM LIST: Patient Active Problem List Diagnosis Date Noted ??? Non-proliferative diabetic retinopathy ([facility]) 05/02/2019 ??? Hyponatremia 01/16/2018 ??? Tinea versicolor 07/18/2015 ??? Tobacco use disorder ([facility]) 10/26/2012 ??? Anemia 05/02/2012 Overview Note: Anemia, unspecified ??? Microalbuminuria 02/04/2012 ??? CT, old ([facility]) 09/16/2011 ??? History of PTCA 09/16/2011 Overview Note: History of PTCA 04/2011 BMS RCA ??? Obesity, Class I, BMI 30-34.9 ([facility]) 09/16/2011 Overview Note: Body mass index is 31.16 kg/(m^2). ??? Hyperlipidemia with target LDL less than 70 ([facility]) 06/08/2011 Overview Note: Hyperlipidemia LDL goal < 70 ??? ASHD (arteriosclerotic heart disease) ([facility]) 05/04/2011 ??? Erectile dysfunction 01/22/2011 Overview Note: side effect Risperdal ??? Type 2 diabetes mellitus, uncontrolled ([facility]) 12/11/2010 Overview Note: Type II or unspecified type diabetes mellitus without mention of complication, uncontrolled ([facility]) ??? Dermatophytosis of body 09/04/2010 Class: Historical Overview Note: Tinea Corporis ??? Coronary atherosclerosis ([facility]) 12/22/2009 Overview Note: LW Modifier: mod RCA, negative nuclear stress test ; CAD ??? Nonspecific abnormal results of liver function study 12/22/2009 Overview Note: Liver Function Tests Abnormal ??? Bipolar I disorder ([facility]) 09/15/2005 Overview Note: LW Onset: [id number] ; Bipolar I Dis FAMILY HISTORY OR [...] CAPSULE BY MOUTH EVERY DAY 0 ??? [place] Carbonate 600 MG capsule Take 600 mg [...] 1 Tablet by mouth. 01/16/2018: [facility]: [facility] Received Sig: Take 1 tablet by mouth [...] times a day. ??? Vitamin D, Ergocalciferol, 08194 units CAPS Take 50,000 Units by mouth. [...] regard to medication management of his tremor. TIC SHAPER documented in this encounter Nursing Notes Diana Zambrano LPN - 06/11/2019 1:00 PM CST Pt refused immunizations TIC SHAPER documented in this encounter Plan of Treatment Not on filedocumented as of this encounter Procedures Procedure Name Priority Date/Time Associated Diagnosis Comme nts TB SKIN TEST (PPD) Routine 06/14/2019 10:53 Screening for Resu lts for this AM PLASTIC SHAPER tuberculosis procedure are i n the results section. documented in this encounter Results TB SKIN TEST (PPD) (06/14/2019 10:53 AM PLASTIC SHAPER) P athologist Signature TB Skin Test 0.0 [...] remor documented in this encounter Care Teams Senior Bookkeeper Relationship Specialty Start Date End Date Gagandeep Hinojosa MD PCP - General 05/17/12 [address] [place] [address] Vane Zarate Psychiatrist Psychiatry 03/22/12 [facility] Psychotherapist 08/04/17 [facility] Furnace Installer Helper 09/13/17 documented as of this encounter
--- OUTSIDE RECORDS SUMMARY | 2022-02-14 17:03 | XMS_ITS | Encounter Summary ---
:1970 Author Organization [employer] Address [address] [place] [address] Care Team Providers Name Role Phone Gagandeep Hinojosa MD Primary Care Provider Reason for Visit Reason Comments Back Pain Lower left back Pain X 1 day Encounter Details Date Type Department Care Team Description 10/13/2018 Office Visit [facility] Gagandeep Hinojosa ft-sided low back pain without sciatica (Primary Dx); Romario Rubio MD Marital conflict [facility] [facility] [address] [place] [address] [address] [phone] [place] [address] Social History Tobacco Use Types Packs/Day Years [...] unspecified ??? Microalbuminuria 02/04/2012 ??? CT, old 09/16/2011 ??? History of PTCA 09/16/2011 [...] disorder (HRC) 09/15/2005 Overview Note: LW Onset: [id number] ; Bipolar I Dis FAMILY HISTORY OR [...] CAPSULE BY MOUTH EVERY DAY 0 ??? [place] Carbonate 600 MG capsule Take 600 mg [...] 1 Tablet by mouth. 01/16/2018: [facility] [employer] [facility] Received Sig: Take 1 tablet [...] unspecified documented in this encounter Care Teams Community Program Assistant Relationship Specialty Start Date End Date Gagandeep Hinojosa MD PCP - General 05/17/12 [facility] [place] [address] Vane Zarate Psychiatrist Psychiatry 03/22/12 [facility] Mental Health Psychotherapist 08/04/17 [facility] Rivet Sorter 09/13/17 documented as of this encounter
--- OUTSIDE RECORDS SUMMARY | 2022-02-14 17:04 | XMS_ITS | Encounter Summary ---
:1970 Author Organization [facility] Address [address], [place] [address] Care Team Providers Name Role Phone Gagandeep Hinojosa MD Primary Care Provider Reason for Visit Reason Comments APPOINTMENT REQUEST Encounter Details Date Type Department Care Team Description 07/27/2018 Care Coord Phone Judy Luke R N APPOINTMENT REQUEST [facility] [address] [facility] [address] [place] [address] . KATIANA Hernandez [address] KATIANA VELAZQUEZ [phone] Social History Tobacco Use Types Packs/Day Years [...] Hinojosa: ?CARE COORDINATION - PRIMARY CARE CON* [#[id number]] ?Priority: Routine ??Class: [facility] Location ?Comment:New injectables vs Invokana ?Associated Diagnoses ?E11.65 Uncontrolled type 2 diabetes mellitus with hyperglycemia (HRC) ?Reason for referral? -> Difficulty managing conditions, treatments, or ? medications To Scheduling, please assist with appt. documented in this encounter Plan of Treatment Not on filedocumented as of this encounter Visit Diagnoses Not on filedocumented in this encounter Care Teams Transportation Solutions Manager Relationship Specialty Start Date End Date Gagandeep Hinojosa MD PCP - General 05/17/[address] [place], [place] [address]K[place]NA Rodriguez [address] Vane Zarate Psychiatrist Psychiatry 03/22/12 [facility] Psychotherapist 08/04/17 [facility] Systems Trainer 09/13/17 documented as of this encounter
--- OUTSIDE RECORDS SUMMARY | 2022-02-14 17:04 | XMS_ITS | Encounter Summary ---
:1970 Author Organization [employer] Address [address] [place] [address] Care Team Providers Name Role Phone Gagandeep Michaud MD Primary Care Provider Reason for Visit Reason Onset Date Comments Refill 03/07/2018 blood glucose (ONE T OUCH ULTRA BLUE) test strip Encounter Details Date Type Department Care Team Description 03/07/2018 Refill [place] [facility] Gagandeep Michaud, Refil l (blood glucose Medicine (ONE TOUCH ULTRA BLUE) [address] [facility] test strip) [place] [address] [place] [id number] (Wo rk) Social History Tobacco Use Types [...] on insurance. ICD-10: E11.29, E11.65, R80.9, Z79.4 S PROCESSOR Interface, Out CTQuan Prov Query - 03/07/2018 3:33 PM CST [...] MICHAUD) Next scheduled visit: None Powered by [employer], Reference: [id number], 03/07/2018 3:33:19 PM PARTS PROCESSOR, Pool: MANUEL REFILL ([id number]) S PROCESSOR documented in this encounter Plan of Treatment Not on filedocumented as of this encounter Visit Diagnoses Diagnosis Uncontrolled type 2 diabetes mellitus wi th microalbuminuria, with long-term current use of insulin documented in this encounter Care Teams Posting Clerk Relationship Specialty Start Date End Date Gagandeep Michaud MD PCP - General 05/17/12 [address] [facility] K[place] Gerber [address] Vane Zarate Psychiatrist Psychiatry 03/22/12 [facility] Psychotherapist 08/04/17 [facility] Emergency Department Nurse 09/13/17 documented as of this encounter
--- OUTSIDE RECORDS SUMMARY | 2022-02-14 17:04 | XMS_ITS | Encounter Summary ---
:1970 Author Organization [employer] Address [address], [place] [address] Care Team Providers Name Role Phone Gagandeep Hinojosa MD Primary Care Provider Reason for Visit Reason Comments Pharmacy Encounter Details Date Type Department Care Team Description 08/02/2018 [facility] Gag[facility]ep Hinojosa MD Pharmacy 1415 [facility] . [address] [place] [address] [place] [address] [phone] (Wo rk) Social History Tobacco Use Types [...] filedocumented in this encounter Care Teams Garment Manufacturer Relationship Specialty Start Date End Date Gagandeep Hinojosa MD PCP - General 05/17/12 [facility] [place]ber [address] Vane Zarate Psychiatrist Psychiatry 03/22/12 [facility] Psychotherapist 08/04/17 [facility] Windmill Mechanic 09/13/17 documented as of this encounter
--- OUTSIDE RECORDS SUMMARY | 2022-02-14 17:04 | XMS_ITS | Encounter Summary ---
:1970 Author Organization [employer] Address [address] [address] Care Team Providers Name Role Phone Gagandeep Michaud MD Primary Care Provider Reason for Visit Reason Onset Date Comments Refill 06/07/2018 amLODIPine (NORVASC) 10 MG tablet Encounter Details Date Type Department Care Team Description 06/07/2018 Refill [facility] Gagandeep Michaud, Refil l (amLODIPine Medicine (NORVASC) 10 MG tablet) [address] [facility] . [address] [place] [address] [place], [place] [address] (Wo rk) Social History Tobacco Use Types [...] mouth two times a day with meals. H BOX TENDER Interface, Out Surescripts Prov Query - 06/07/2018 [...] : 8 % on 01/19/2018 Powered by [employer], Reference: [id number], 06/07/2018 3:36:01 PM WEIGH BOX TENDER, Pool: MANUEL REFILL ([id number]) H BOX TENDER documented in this encounter Plan of Treatment Not on filedocumented as of this encounter Visit Diagnoses Diagnosis Uncontrolled type 2 diabetes mellitus wi thout complication, without long-term current use of insulin documented in this encounter Care Teams Passport Support Associate Relationship Specialty Start Date End Date Gagandeep Michaud MD PCP - General 05/17/12 [address] [place] Hernandez [address] Vane Zarate Psychiatrist Psychiatry 03/22/12 [facility] Mental Health Psychotherapist 08/04/17 [facility] Tractor Trailer Mechanic 09/13/17 documented as of this encounter
--- OUTSIDE RECORDS SUMMARY | 2022-02-14 17:04 | XMS_ITS | Encounter Summary ---
:1970 Author Organization [email or web address] Address [address] [place] [address] Care Team Providers Name Role Phone Gagandeep Hinojosa MD Primary Care Provider Reason for Referral (Routine) - Closed Specialty Diagnoses / Procedures Referred By Contact Refer red To Contact Diagnoses LV dysfunction Gagandeep Hinojosa MD Procedures Echocardiogram [address] [place] [address] Referral ID Status Reason Start Date Expiration Date Visits Requ ested Visits Authorized [id number] Closed 08/07/2018 11/06/2019 1 1 Reason for Visit Reason Comments Follow-up Test results Encounter Details Date Type Department Care Team Description 08/07/2018 Office Visit Gagandeep Storm LV dysfu nction Romario Rubio MD (Primary Dx) 1415 [facility] . [address] [place] [address] Ave [phone] [place], [place] [address] Social History Tobacco Use [...] Noted ??? Hyponatremia 01/16/2018 ??? Tobacco abuse ([facility]) 02/24/2016 ??? Tinea versicolor 07/18/2015 ??? Tobacco use disorder ([facility]) 10/26/2012 ??? Anemia 05/02/2012 Overview Note: Anemia, unspecified ??? Microalbuminuria 02/04/2012 ??? ME, old ([facility]) 09/16/2011 ??? History of PTCA 09/16/2011 Overview Note: History of PTCA 04/2011 BMS RCA ??? Obesity, Class I, BMI 30-34.9 ([facility]) 09/16/2011 Overview Note: Body mass index is 31.16 kg/(m^2). ??? Hyperlipidemia with target LDL less than 70 ([facility]) 06/08/2011 Overview Note: Hyperlipidemia LDL goal < 70 ??? ASHD (arteriosclerotic heart disease) ([facility]) 05/04/2011 ??? Erectile dysfunction 01/22/2011 Overview Note: side effect Risperdal ??? Type 2 diabetes mellitus, uncontrolled ([facility]) 12/11/2010 Overview Note: Type II or unspecified type diabetes mellitus without mention of complication, uncontrolled ([facility]) ??? Dermatophytosis of body 09/04/2010 Class: Historical Overview Note: Tinea Corporis ??? Coronary atherosclerosis ([facility]) 12/22/2009 Overview Note: LW Modifier: mod RCA, negative nuclear stress test ; CAD ??? Nonspecific abnormal results of liver function study 12/22/2009 Overview Note: Liver Function Tests Abnormal ??? Bipolar I disorder ([facility]) 09/15/2005 Overview Note: LW Onset: 02Onm05 ; Bipolar I Dis FAMILY HISTORY OR [...] CAPSULE BY MOUTH EVERY DAY 0 ??? [place] Carbonate 600 MG capsule Take 600 mg [...] 1 Tablet by mouth. 01/16/2018: [facility] [employer] [facility] Received Sig: Take 1 tablet [...] unspecified documented in this encounter Care Teams Warehouse Operations Associate Relationship Specialty Start Date End Date Gagandeep Hinojosa MD PCP - General 05/17/12 [address] [facility] [place] [address] Vane Zarate Psychiatrsamantha Psychiatry 03/22/12 [facility] Psychotherapist 08/04/17 [facility] Lumber Salvager 09/13/17 documented as of this encounter
--- OUTSIDE RECORDS SUMMARY | 2022-02-14 17:04 | XMS_ITS | Encounter Summary ---
:1970 Author Organization [employer] Address [address], [place] [address] Care Team Providers Name Role Phone Gagandeep Hinojosa MD Primary Care Provider Reason for Visit Reason Comments [facility] Face To Face Visit Encounter Details Date Type Department Care Team Description 02/15/2018 Care Coord Deborah Odom, [facility] Fa ce To Face Office Visit Medicine [facility] Visit [address] [place] [address] [facility]. [facility] [place] [address] [place] [address] [phone] Social History Tobacco Use Types Packs/Day Years [...] Progress Notes Deborah Rodrigues, [facility] - 02/15/2018 11:00 AM CDT Care Coordination Visit Pt: Timur Krishnamurthy Referred by: Gagandeep Hinojosa MD Reason for visit: Care Coordination Timur was seen alone. Discussion/actions: Met with Rustam for a scheduled [facility] appointment. RN Fence Maker, Judy Pittman, was present for the appointment. [...] Rustam did say that he attends the [employer] once a week, and feels like [...] Primary documented in this encounter Care Teams Insurance Examining Clerk Relationship Specialty Start Date End Date Gagandeep Hinojosa MD PCP - General 05/17/12 [address] [place] [address] Vane Zarate Psychiatrist Psychiatry 03/22/12 [facility] Health Psychotherapist 08/04/17 [facility] CM Automatic Head Sawyer 09/13/17 documented as of this encounter
--- OUTSIDE RECORDS SUMMARY | 2022-02-14 17:04 | XMS_ITS | Encounter Summary ---
:1970 Author Organization [facility] Address [address] [place] [address] Care Team Providers Name Role Phone Gagandeep Hinojosa MD Primary Care Provider Reason for Referral Consult/Transfer Care (Routine) - Closed Specialty Diagnoses / Procedures Referred By Contact Refer red To Contact Diagnoses Uncontrolled type 2 diabetes mellitus with hyperglycemia (HRC) Gagandeep Hinojosa MD [address] [place] [address] Referral ID Status Reason Start Date Expiration Date Visits Requ ested Visits Authorized [id number] Closed 07/27/2018 10/26/2019 1 1 Scheduling Instructions Your provider has recommended care coord ination. A care rn team leader will call you within two weeks. If you would like to s peak with someone sooner, please contact your primary care clinic. Reason for Visit Reason Comments MEDICATION CHECK update meds Encounter Details Date Type Department Care Team Description 07/27/2018 Office Visit Gagandeep Storm type 2 diabetes mellitus with hyperglycemia (HRC) (Primary Dx); Romario Rubio MD Bipolar I disorder (HR); [address] [place] [address] [facility] ASHD (ar teriosclerotic heart disease); Ave. 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 [place] Carbonate 600 MG capsule Take 600 mg by mouth daily at bedtime. 01/16/2018: Received from: External Pharmacy Received Sig: TAKE ONE CAPSULE BY MOUTH AT BEDTIME 0 ??? metFORMIN (GLUCOPHAGE) 500 MG tablet Take 2 Tablets by mouth two times a day with meals. 360 Tablet 0 ??? multivitamin (THERAGRAN) tablet Take 1 Tablet by mouth. 01/16/2018: Received from: [employer] [facility] Received Sig: Take 1 tablet by mouth [...] type 2 diabetes mellitus with hyperglycemia ([facility]) E11.65 POCT Glycosylated Hemoglobin (HB A1C) CARE COORDINATION - PRIMARY CARE CONSULT 2. Bipolar I disorder ([facility]) F31.9 3. ASHD (arteriosclerotic heart disease) ([facility]) I25.10 atorvastatin (LIPITOR) 80 MG tablet 4. Hyperlipidemia LDL goal < 70 E78.5 atorvastatin (LIPITOR) 80 MG tablet 5. Essential hypertension ([facility]) I10 amLODIPine (NORVASC) 10 MG tablet metoprolol [...] Hemoglobin (HB A1C) (07/27/2018 2:02 PM CDT) [facility] gist Method Time Signature Hemoglobin A1C 10.9 (H) <=5.6 % 07/27/2018 [facility] (Rapid) 2:15 PM CDT LABORATORY Specimen Anatomical Collection Method / Collection Time Recei abimael Time (Source) Location / Volume Laterality Blood Venipuncture / 07/27/2018 2:02 07/27/2018 2:03 Unknown PM CDT PM CDT Narrative [facility] - 07/27/2018 2:15 PM CDT This Rapid A1c test is designed for charlotte toring patients with an established diagnosis of diabetes mellitus. This rapid method is not suitable to establish the initial diagnosis of diabetes mellitus. Performe d using Point of Care Instrumentation. Gagandeep Hinojosa MD LAB_1 Performing Organization Address City/State/ZIP Code Phon e Number [facility] [address] [facility] [place] [address] documented in this encounter Visit Diagnoses Diagnosis Uncontrolled type 2 diabetes mellitus wi th hyperglycemia (HRC) - Primary Bipolar I disorder (HRC) Bipolar I disorder, most recent episode (or current) unspecified ASHD (arteriosclerotic heart disease) ([facility]) Coronary atherosclerosis of unspecified type of vessel, kashia or graft Hyperlipidemia, unspecified hyperlipidem ia type [...] with ophthalmic manifestations, not stated as uncontrolled 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) Encounter for long-term (current) use of insulin Type 2 diabetes mellitus with complicati on, with long-term current use of insulin (HRC) Tobacco use disorder (HRC) Tobacco use disorder documented in this encounter Care Teams Inbound Ingredient Logistics Specialist Relationship Specialty Start Date End Date Gagandeep Hinojosa MD PCP - General 05/17/12 [address] [facility] [place] [address] Vane Zarate Psychiatrist Psychiatry 03/22/12 [facility] Psychotherapist 08/04/17 [facility] Director Correctional Agency 09/13/17 documented as of this encounter
--- OUTSIDE RECORDS SUMMARY | 2022-02-14 17:04 | XMS_ITS | Encounter Summary ---
:1970 Author Organization [facility] Address [address] [place] [address] Care Team Providers Name Role Phone Gagandeep Hinojosa MD Primary Care Provider Reason for Visit Reason Comments [facility] Discharge Follow Up Encounter Details Date Type Department Care Team Description 07/31/2018 [facility] Gag[facility]ep Hinojosa, Post Hospital Discharge Medicine MD Follow Up [address] [facility] . [address] [place] [address] [place] [address] [phone] (Wo rk) Social History Tobacco Use Types [...] follow up call completed. See doc flowsheet: [facility] for details. documented in this encounter Plan of Treatment Not on filedocumented as of this encounter Visit Diagnoses Not on filedocumented in this encounter Care Teams Spring Winder Relationship Specialty Start Date End Date Gagandeep Hinojosa MD PCP - General 05/17/[address] [place] [address] Vane Zarate Psychiatrist Psychiatry 03/22/12 [facility] Mental Health Psychotherapist 08/04/17 [facility] Clinical Research Management Associate 09/13/17 documented as of this encounter
--- OUTSIDE RECORDS SUMMARY | 2022-02-14 17:04 | XMS_ITS | Encounter Summary ---
:1970 Author Organization [employer] Address [address] [place] [address] Care Team Providers Name Role Phone Gagandeep Hinojosa MD Primary Care Provider Reason for Visit Reason Comments [facility] Phone Visit Encounter Details Date Type Department Care Team Description 02/08/2018 Care Coord Phone Judy Luke R N [facility] Phone Visit Medicine [address] [facility] 14[address] [facility] [address] [place] [address] [phone] Social History Tobacco Use Types Packs/Day Years [...] RN - 02/08/2018 10:29 AM CDT RN Scallop Binder - Diabetes Follow-Up Current diabetes medication regimen: [...] correction, active care coordinati on - Primary Type 2 diabetes mellitus with insulin th fan (HRC) documented in this encounter Care Teams Educational Therapist Relationship Specialty Start Date End Date Gagandeep Hinojosa MD PCP - General 05/17/[address] [place] [address] [place] Gerber [address] Vane Zarate Psychiatrist Psychiatry 03/22/12 [facility] Mental Health Psychotherapist 08/04/17 [facility] Computed Tomography Scanner Operator 09/13/17 documented as of this encounter
--- OUTSIDE RECORDS SUMMARY | 2022-02-14 17:04 | XMS_ITS | Encounter Summary ---
:1970 Author Organization [employer] Address [address], [place] [address] Care Team Providers Name Role Phone Gagandeep Hinojosa MD Primary Care Provider Reason for Referral (Routine) - Closed Specialty Diagnoses / Procedures Referred By Contact Refer red To Contact Diagnoses Chest pain, unspecified type Kailash Green DO Procedures Outreach Echocardiogram [address] [place] [address] Referral ID Status Reason Start Date Expiration Date Visits Requ ested Visits Authorized [id number] Closed 06/19/2018 09/18/2019 1 1 KE RN Encounter Details Date Type Department Care Team Description 06/02/2018 Hospital Encounter Heart & Vascular Chest pain, unspecified Center Echocardiogra m type (Primary Dx) [address] [place] [address] Social History Tobacco Use Types Packs/Day Years [...] tabletIndications: ASHD (arteriosclerotic heart disease) ([facility]), Hyperlipidemia with target LDL less than 70 ([facility]) blood glucose (ONE Use to test two [...] by mouth 0 12/2408/28/2019 MG capsule daily. [place] Carbonate 600 Take 600 mg by mouth [...] Results ECHO COMPLETE W CONTRAST ( (Order [id number]) Original Order Diagnosis: CHEST PAIN, CHEST PRESSURE, CHEST TIGHTENING Reading Provider(s) Marilu Charles MD PACs images are not viewable in [employer] Link. See text report below. 06/02/2018 1:30 [...] Mean PG - mmHg Marilu Charles M.D. Lozenge Maker ANIYAH/cam[place] / Lab and Collection ECHO COMPLETE W CONTRAST on 06/02/2018 Result History ECHO COMPLETE W CONTRAST on 06/02/2018 - Result Edited Hard Copy Result Report Open Hard Copy Results Report Removed from In Basket Done By Kailash Green DO on 06/03/2018 9:10 PM Patient Release Status: This result is not viewable by the patient. Patient Information Patient Name Timur Krishnamurthy ([id number]) Sex Male Room Bed Code Status 2214 KE RN documented in this encounter Plan of Treatment Not on filedocumented as of this encounter Procedures Procedure Name Priority Date/Time Associated Comments Diagnosis OUTREACH ECHOCARDIOGRAM Routine 06/02/2018 9:51 Chest pain, R esults for this AM INTAKE RN unspecified type procedure a re in the results section. documented in this encounter Results Outreach Echocardiogram (06/02/2018 9:51 AM INTAKE RN) Narrative PN POCT - 06/02/2018 9:51 AM INTAKE RN Mis Mcneil ? 06/19/2018 ??9:52 AM Results ECHO COMPLETE W CONTRAST ( [id number]) (Order [id number]) Original Order Diagnosis: CHEST PAIN, CH EST PRESSURE, CHEST TIGHTENING Reading Provider(s) Marilu Charles MD PACs images are not viewable in [employer] Link. See text report below. 06/02/2018 1:30 [...] Mean PG - mmHg Marilu Charles M.D. Lozenge Maker ANIYAH/[place] / ?? Lab and Collection ECHO COMPLETE W CONTRAST on 06/02/2018 Result History ECHO COMPLETE W CONTRAST on 06/02/2018 - R esult Edited Hard Copy Result Report Open Hard Copy Results Report Removed from In Basket Done By Kailash Green AlvinDO batool on 06/03/2018 9:1 0 PM Patient Release Status: This result is not viewable by the [facility]. Patient Information Patient Name Timur Krishnamurthy ([id number]) Sex Male Room Bed Code Status 2214 ?? Procedure Note Mis Mcneil - 06/19/2018 9:51 AM INTAKE RN Results ECHO COMPLETE W CONTRAST ( [id number]) (Order [id number]) Original Order Diagnosis: CHEST PAIN, CH EST PRESSURE, CHEST TIGHTENING Reading Provider(s) Marilu Charles MD PACs images are not viewable in [employer] Link. See text report below. 06/02/2018 1:30 [...] Mean PG - mmHg Marilu Charles M.D. Lozenge Maker ANIYAH/[place] / Lab and Collection ECHO COMPLETE [...] humphrey. Patient Information Patient Name Timur Krishnamurthy ([id number]) Sex Male Room Bed Code Status 2214 Kailash Green DO PN ECHO ORDERABLES Performing Organization Address City/State/ZIP Code Phon e Number POCT PN POCT documented in this encounter Visit Diagnoses Diagnosis Chest pain, unspecified type - Primary documented in this encounter Care Teams Director Process Relationship Specialty Start Date End Date Gagandeep Hinojosa MD PCP - General 05/17/12 1415 [facility] [place] [address] Vane Zarate Psychiatrist Psychiatry 03/22/12 [facility] Psychotherapist 08/04/17 [facility] Shipping Room Supervisor 09/13/17 documented as of this encounter
--- OUTSIDE RECORDS SUMMARY | 2022-02-14 17:04 | XMS_ITS | Encounter Summary ---
:1970 Author Organization [employer] Address [address] [place] [address] Care Team Providers Name Role Phone Gagandeep Hinojosa MD Primary Care Provider Reason for Visit Reason Comments HC Face To Face Visit Encounter Details Date Type Department Care Team Description 02/15/2018 Care Coord Judy Luke RN [facility] Face To Face Office Visit Medicine 1415 [facility] Visit [address] [place] [address] Social History Tobacco Use Types Packs/Day Years [...] RN - 02/15/2018 11:00 AM CDT RN Creative Art Therapist Visit Pt: Timur Krishnamurthy Referred by: Gagandeep [...] is a joint visit with Lesly Rodrigues, [facility] Creative Art Therapist. Mental Health and Smoking Cessation See Lesly's [...] Finance, Emotional and Transportation. BG Goals: Health Shelter Lab Goal <7 [...] Continue using sliding scale, as prescribed. RN Creative Art Therapist as needed for questions. Scheduled follow up on 02/28/18, bring BG readings. Rustam to call if symptoms of hypoglycemia or readings < 70 mg/dL. Rustam verbalized understanding and agreed with plan of care and follow up. documented in this encounter Plan of Treatment Not on filedocumented as of this encounter Visit Diagnoses Diagnosis Health retirement, active care coordinati on - Primary Type 2 diabetes mellitus with insulin th fan (HRC) documented in this encounter Care Teams Sewer Relationship Specialty Start Date End Date Gagandeep Hinojosa MD PCP - General 05/17/12 [address] [place] [address] Vane Zarate Psychiatrist Psychiatry 03/22/12 [facility] Psychotherapist 08/04/17 [facility] Test Equipment Mechanic 09/13/17 documented as of this encounter
--- OUTSIDE RECORDS SUMMARY | 2022-02-14 17:04 | XMS_ITS | Encounter Summary ---
:1970 Author Organization [employer] Address [address] [place] [address] Care Team Providers Name Role Phone Gagandeep Hinojosa MD Primary Care Provider Reason for Visit Reason Comments Patient Calling Back insulin regular (NOVOLIN R) 100 UNIT/ML injection Medication Questions Encounter Details Date Type Department Care Team Description 08/07/2018 Telephone [facility] Gagandeep Hinojosa, Anastasia nt Calling Back Medicine MD (insulin regular [address] (NOVOLIN R) 100 UNIT/[place] [address] [place] [address] injection); Medication [phone] (Wo rk) Questions Social History Tobacco Use [...] Novolin R. Clinician Next Step: Route to [place] Nurse pool to follow up Specific Request(s): [...] [place] [id number] if before 3pm or then triage Gagandeep Hinojosa MD - 08/08/2018 10:07 PM CDT Please contact patient. Document in medication list his current dose of regular insulin and route results back to me Dominique Hill - 08/07/2018 4:27 PM CDT Clinician Action: Input needed regarding Medication Clinician Next Step: Route to [employer] pool Specific Request(s): 1. See below information [...] Sliding Scale +1 unit/50 >150 Kenneth PH: [phone] documented in this encounter Plan of Treatment Not on filedocumented as of this encounter Visit Diagnoses Diagnosis Uncontrolled type 2 diabetes mellitus wi th complication, with long-term current use of insulin documented in this encounter Care Teams Account Services Coordinator Relationship Specialty Start Date End Date Gagandeep Hinojosa MD PCP - General 05/17/[address] [facility] [place] [address] Vane Zarate Psychiatrist Psychiatry 03/22/12 [facility] Psychotherapist 08/04/17 [facility] Manager Academic 09/13/17 documented as of this encounter
--- OUTSIDE RECORDS SUMMARY | 2022-02-14 17:04 | XMS_ITS | Encounter Summary ---
:1970 Author Organization [employer] Address [address] [place] [address] Care Team Providers Name Role Phone Gagandeep Hinojosa MD Primary Care Provider Encounter Details Date Type Department Care Team Description 07/27/2018 Lab Visit [facility] Uncontrolled type [address] mellitus with hyperglycemia [place] [address] ([facility]) [phone] Social History Tobacco Use Types Packs/Day Years [...] Hemoglobin (HB A1C) (07/27/2018 2:02 PM CDT) [facility] gist Method Time Signature Hemoglobin A1C 10.9 (H) <=5.6 % 07/27/2018 [place] (Rapid) 2:15 PM CDT LABORATORY Specimen Anatomical Collection Method / Collection Time Recei abimael Time (Source) Location / Volume Laterality Blood Venipuncture / 07/27/2018 2:02 07/27/2018 2:03 Unknown PM CDT PM CDT Narrative [place] [facility] - 07/27/2018 2:15 PM CDT This Rapid A1c test is designed for charlotte toring patients with an established diagnosis of diabetes mellitus. This rapid method is not suitable to establish the initial diagnosis of diabetes mellitus. Performe d using Point of Care Instrumentation. Gagandeep Hinojosa MD LAB_1 Performing Organization Address City/State/ZIP Code Phon e Number [facility] [address] [facility] [place] [address] documented in this encounter Visit Diagnoses Diagnosis Uncontrolled type 2 diabetes mellitus wi th hyperglycemia (HRC) documented in this encounter Care Teams Reinforcing Steel Worker Wire Mesh Relationship Specialty Start Date End Date Gagandeep Hinojosa MD PCP - General 05/17/12 1415 [facility] [place] [address] Vane Zarate Psychiatrist Psychiatry 03/22/12 [facility] Psychotherapist 08/04/17 [facility] Diet Counselor 09/13/17 documented as of this encounter
--- OUTSIDE RECORDS SUMMARY | 2022-02-14 17:04 | XMS_ITS | Encounter Summary ---
:1970 Author Organization [employer] Address [address] [place] [address] Care Team Providers Name Role Phone Gagandeep Michaud MD Primary Care Provider Reason for Visit Reason Onset Date Comments Refill 06/07/2018 amLODIPine (NORVASC) 10 MG tablet Encounter Details Date Type Department Care Team Description 06/07/2018 Refill [facility] Gagandeep Michaud, Refil l (amLODIPine Medicine (NORVASC) 10 MG tablet) 1415 [facility] . [address] [place] [address] [place], [place] [id number] (Wo rk) Social History Tobacco Use Types [...] med check for further refills per provider. E DESIGNER Gagandeep Michaud MD - 06/08/2018 10:28 AM CST Call patient E DESIGNER Merlyn Urias RN - 06/08/2018 10:27 AM [...] Sig: Take 1 Tablet by mouth daily. E DESIGNER Interface, Out Surescripts Prov Query - 06/07/2018 [...] 76 mm Hg on 01/16/2018 Powered by [employer], Reference: [id number], 06/07/2018 3:34:49 PM ANIME DESIGNER, Pool: MANUEL LANDACHIP ([id number]) E DESIGNER documented in this encounter Plan of Treatment Not on filedocumented as of this encounter Visit Diagnoses Diagnosis Uncontrolled type 2 diabetes mellitus wi thout complication, without long-term current use of insulin documented in this encounter Care Teams Haulage Engine Operator Relationship Specialty Start Date End Date Gagandeep Michaud MD PCP - General 05/17/12 1415 [facility] [place] [address] Vane Zarate Psychiatrist Psychiatry 03/22/12 [facility] Psychotherapist 08/04/17 [facility] Manager Business Operations 09/13/17 documented as of this encounter
--- OUTSIDE RECORDS SUMMARY | 2022-02-14 17:04 | XMS_ITS | Encounter Summary ---
:1970 Author Organization [email or web address] Address [address], [place] [address] Care Team Providers Name Role Phone Gagandeep Hinojosa MD Primary Care Provider Reason for Visit Reason Comments DIABETES EDUCATION Encounter Details Date Type Department Care Team Description 08/01/2018 Care Coord Office Judy Luke RN DIABETES EDUCATION Visit Medicine [address] [place] [address] [place] [phone] Social History Tobacco Use Types Packs/Day Years [...] RN - 08/01/2018 1:00 PM CDT RN Chip Tester Visit Pt: Timurcole Krishnamurthy Referred by: Gagandeep [...] work since he left hisjob at the [employer] last summer. Rustam reports he has been connected with [employer] a resource provided by his therapist, that [...] Finance, Emotional and Transportation. BG Goals: Health Snf Lab Goal <7 [...] SMBG tid as directed, record readings. RN Chip Tester as needed for questions. Scheduled follow up [...] insulin documented in this encounter Care Teams Checker Stocker Relationship Specialty Start Date End Date Gagandeep Hinojosa MD PCP - General 05/17/12 1415 [facility] [place] [address] Vane Zarate Psychiatrsamantha Psychiatry 03/22/12 [facility] Psychotherapist 08/04/17 [facility] Asset Protection Assistant 09/13/17 documented as of this encounter
--- OUTSIDE RECORDS SUMMARY | 2022-02-14 17:04 | XMS_ITS | Encounter Summary ---
:1970 Author Organization [employer] Address [address], [place] [address] Care Team Providers Name Role Phone Gagandeep Hinojosa MD Primary Care Provider Reason for Referral (Routine) - Closed Specialty Diagnoses / Procedures Referred By Contact Refer red To Contact Diagnoses Chest pain at rest Zara Fox MD Procedures Outreach Nuclear Study [address] [place], [place] [address] Referral ID Status Reason Start Date Expiration Date Visits Requ ested Visits Authorized [id number] Closed 08/16/2018 11/15/2019 1 1 Encounter Details Date Type Department Care Team Description 08/04/2018 Hospital Encounter Heart & Vascular Chest pain at rest Center Nuclear (Primary Dx) Cardiology [address] [facility] [place] [address] Social History Tobacco Use Types [...] less than 70 ([facility]) blood glucose (ONE Use to test two [...] by mouth 0 12/2408/28/2019 MG capsule daily. [place] Carbonate 600 Take 600 mg by mouth [...] NM CARDIAC MPI STRESS TEST ( (Order [id number]) STRESS TEST PHARMACOLOGICAL ( (Order [id number]) Original Order Diagnosis: Chest pain at rest [R07.9 (ICD-10-CM)] Chest pain at rest [R07.9 (ICD-10-CM)] Reading Provider(s) Juan Daniel Caba MD PACs images are not viewable in [employer] Link. See text report below. 08/20/2018 4:54 [...] patient. Patient Information Patient Name Timur Krishnamurthy ([id number]) Sex Male documented in this encounter Plan [...] Results NM CARDIAC MPI STRESS TEST ( [id number]) (Order [id number]) STRESS TEST PHARMACOLOGICAL (Accession A [id number]) (Order [id number]) Original Order Diagnosis: Chest pain at rest [R07.9 (ICD-10-CM)] Chest pain at rest [R07.9 (ICD-10-CM)] ? ? Reading Provider(s) Juan Daniel Caba MD PACs images are not viewable in [employer] Link. See text report below. 08/20/2018 4:54 [...] nt. Patient Information Patient Name Timur Krishnamurthy ([id number]) Sex Male Procedure Note Bailee Reynoldslys - 08/04/2018 11:59 PM CD T Results NM CARDIAC MPI STRESS TEST ( [id number]) (Order [id number]) STRESS TEST PHARMACOLOGICAL (Accession A [id number]) (Order [id number]) Original Order Diagnosis: Chest pain at rest [R07.9 (ICD-10-CM)] Chest pain at rest [R07.9 (ICD-10-CM)] Reading Provider(s) Juan Daniel Caba MD PACs images are not viewable in [employer] Link. See text report below. 08/20/2018 4:54 [...] humphrey. Patient Information Patient Name Timur Krishnamurthy ([id number]) Sex Male Zara Fox MD PN CARDIAC SERVICES ORDERABL ES Performing Organization Address City/State/ZIP Code Phon e Number POCT PN POCT documented in this encounter Visit Diagnoses Diagnosis Chest pain at rest - Primary Chest pain, unspecified documented in this encounter Care Teams Cardiac Nurse Specialist Relationship Specialty Start Date End Date Gagandeep Hinojosa MD PCP - General 05/17/12 1415 [facility] [place] [address] Vane Zarate Psychiatrsamantha Psychiatry 03/22/12 [facility] Psychotherapist 08/04/17 [facility] Outreach Consultant 09/13/17 documented as of this encounter
--- OUTSIDE RECORDS SUMMARY | 2022-02-14 17:05 | XMS_ITS | Encounter Summary ---
:1970 Author Organization [employer] Address [address] [place] [address] Care Team Providers Name Role Phone Gagandeep Hinojosa MD Primary Care Provider Reason for Referral Consult/Transfer Care (Routine) - Closed Specialty Diagnoses / Procedures Referred By Contact Refer red To Contact Diagnoses Toenail fungus Type 2 diabetes mellitus with left diabetic foot ulcer (HRC) Gagandeep Hinojosa MD [facility] MED CNTR OUTP [address] [facility] [address] [place] [address] [place] [address] Referral ID Status Reason Start Date Expiration Date Visits Requ ested Visits Authorized [id number] Closed 08/18/2017 02/14/2018 1 1 Scheduling Instructions [...] Face To Face Office Visit Medicine 1415 [facility] Visit [address] [place] [address] [...] He agrees to the foot/nail care at [facility]. Order faxed to Khoa at [phone]. Judy Pittman RN - 08/18/2017 9:00 AM CDT RN Radiology Resident Visit Pt: Timur Krishnamurthy Referred by: Gagandeep [...] revved up. Rustam continues to see his [facility] therapist every Tuesday and notes he doing [...] place including monthly psychiatry, weekly therapy, weekly [facility], and [facility] walk-in every Tuesday. Rustam previously worked with Case Management through [facility] and we called [facility] together during our last visit. He states he has not connected with [facility] since, so he agrees to stop by and pick up and delivery driver the application after our visit today. Rustam understands that his mental healthis his top priority at this time, so we won't be making any significant changes to his treatment plan until he is feeling more stable. Because of the complexity of Rustam's mental health, I suggested including Lesly Rodrigues, [facility] Radiology Resident in our visits for additional support. Rustam [...] Rustam states he met with an insurance verify rep last week and has decided to apply [...] for his insulin and go back to [facility]. I stressed the importance of not making [...] at work, but not walking at the [employer] anymore.He is interested in trying basketball. Rustam [...] Since then, Rustam was seen at the [facility] ED last Tuesday and dx with cellulitis, he continues to take antibiotics, and states he is feeling better. Rustam is not wearing the walking boot because he states they told him not to. However, he notes his toenails are long and sharp, needing to be trimmed. We discussed the importance offoot/nail care and I recommended he see Khoa at [facility] because of his DM, foot ulcer, [...] appt scheduled on 08/25/17. Complete paperwork for [facility] Premix Operator Concentrate today. Send email to Dr Huff about [...] specified manifestations, not stated as uncontrolled Health fdc, active care coordinati on Type 2 diabetes mellitus with microalbum inuria, with long-term current use of insulin (HRC) Bipolar I disorder (HRC) Bipolar I disorder, most recent episode (or current) unspecified documented in this encounter Care Teams Research Technician Relationship Specialty Start Date End Date Gagandeep Hinojosa MD PCP - General 05/17/12 [facility]5 [facility] [place] [address] Vane Zarate Psychiatrist Psychiatry 03/22/12 [facility] Mental Health Psychotherapist 08/04/17 documented as of this encounter
--- OUTSIDE RECORDS SUMMARY | 2022-02-14 17:05 | XMS_ITS | Encounter Summary ---
:1970 Author Organization [employer] [facility] Address [address] [address] Care Team Providers Name Role Phone Gagandeep Hinojosa MD Primary Care Provider Reason for Visit Reason Comments [facility] Face To Face Visit Encounter Details Date Type Department Care Team Description 10/06/2017 Care Coord Deborah Odom, [facility] Fa ce To Face Office Visit Medicine [facility] Visit [address] [place] [address] 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 I [...] is planning on going to see the news specialist today at 9:15, and agreedto update RN Cementer Machine Applicator, Judy Pittman, of the results of the [...] term, active care coordinati on - Primary documented in this encounter Care Teams Director Of Residential Services Relationship Specialty Start Date End Date Gagandeep Hinojosa MD PCP - General 05/17/12 [facility]5 [facility] [place] [address] Vane Zarate Psychiatrist Psychiatry 03/22/12 [facility] Psychotherapist 08/04/17 [facility] CM District Superintendent 09/13/17 documented as of this encounter
--- OUTSIDE RECORDS SUMMARY | 2022-02-14 17:05 | XMS_ITS | Encounter Summary ---
:1970 Author Organization [employer] Address [address] [place] [address] Care Team Providers Name Role Phone Gagandeep Hinojosa MD Primary Care Provider Reason for Visit Reason Comments HC Face To Face Visit Encounter Details Date Type Department Care Team Description 10/20/2017 Care Coord Judy Luke RN [facility] Face To Face Office Visit Medicine 14[address] [facility] Visit [address] [place] [address] Social History Tobacco Use Types Packs/Day Years [...] RN - 10/20/2017 9:00 AM CDT RN Professional Development Manager Visit Pt: Timur Krishnamurthy Referred by: Gagandeep [...] is a joint visit with Lesly Rodrigues [facility] Professional Development Manager. Both Lesly and I noticed and commented that Rustam appears to be more relaxed this week, he is visibly morecalm and less jittery today. Rustam attributes this change to cutting back his caffeine consumption and the recent change in his medication. Mental Health See note from Lesly Rodrigues [facility] Professional Development Manager for documentation. Medication I reviewed Rustam's medication [...] to work outor play basketball at the [facility], but it is free to walk [...] prescription for diabetic shoes and inserts through [employer], he is excited to receive his first pair of [employer]. He also received foot care through [facility] and was advised to continue to go every 3 months. Smoking Cessation See note from Lesly Rodrigues, [facility] Professional Development Manager for documentation. Swelling The swelling in Rustam's [...] identified: Finance and Emotional. BG Goals: Health Retirement Lab Goal <7 Pre-meal: 70-130 mg/dL PPG: [...] unspecified documented in this encounter Care Teams Founder And Ceo Relationship Specialty Start Date End Date Gagandeep Hinojosa MD PCP - General 05/17/[address] [place] [address] [place] [address] Vane Zarate Psychiatrist Psychiatry 03/22/12 [facility] Psychotherapist 08/04/17 [facility] Retirement Plan Specialist 09/13/17 documented as of this encounter
--- OUTSIDE RECORDS SUMMARY | 2022-02-14 17:05 | XMS_ITS | Encounter Summary ---
:1970 Author Organization [employer] Address [address] [address] Care Team Providers Name Role Phone Gagandeep Hinojosa MD Primary Care Provider Encounter Details Date Type Department Care Team Description 01/16/2018 Lab Visit [facility] Hyponatremia 1415 [facility] . [place], [place] [address] Social History Tobacco Use Types Packs/Day Years [...] at [facility], [address] [place] [address] CLIA number [id number] Gagandeep Hinojosa MD LAB_1 Performing Organization Address City/State/ZIP Code Phon e Number PN SOFT [address] [place] [address] documented in this encounter Visit Diagnoses Diagnosis Hyponatremia Hyposmolality and/or hyponatremia documented in this encounter Care Teams Licensed Nursing Assistant Relationship Specialty Start Date End Date Gagandeep Hinojosa MD PCP - General 05/17/12 14[address] [place], [place] [address] Vane Zarate Psychiatrsamantha Psychiatry 03/22/12 [facility] Psychotherapist 08/04/17 [facility] Inside Sales Account Representative 09/13/17 documented as of this encounter
--- OUTSIDE RECORDS SUMMARY | 2022-02-14 17:05 | XMS_ITS | Encounter Summary ---
:1970 Author Organization [employer] Address [address] [place] [address] Care Team Providers Name Role Phone Gagandeep Hinojosa MD Primary Care Provider Reason for Visit Reason Comments HC Face To Face Visit Encounter Details Date Type Department Care Team Description 09/22/2017 Care Coord Judy Luke RN [facility] Face To Face Office Visit Medicine 1415 [facility] Visit [address] [place] [address] Social History Tobacco Use Types Packs/Day Years [...] RN - 09/22/2017 10:00 AM CDT RN Operator Helper Visit Pt: Timur Krishnamurthy Referred by: Gagandeep [...] is a joint visit with ERLIN Salas Operator Helper. Both Lesly and Bucky noticed and commented that Rustam appears visibly more calm and less jittery today, he attributes this to cutting back on his caffeine consumption. Mental Health See note from ERLIN Salas Operator Helper for documentation. Insurance Rustam receives SSDI for his dx Bipolar Disorder. Despite an inability to afford his medical and prescription costs, he and his are over-income for MA. Rustam is aware that Jmiena French has a Financial Assistance program to help cover clinic costs. Previously, Rustam met with Reina to apply for FA and came up with a payment plan for his outstanding charges. In the meantime, Rustam has met with aninsurance broker associate plans to enroll in a supplemental Medicare [...] Rustam has not been walking at the [facility], he wants to start playing basketball again. However, he struggles with motivation. I reminded Rustam of the importance of physical activity with glucose control and reducing manic energy. Smoking Cessation See note from Lesly Rodrigues, [facility] Operator Helper for documentation. Swelling The swelling in Rustam's LE has improved significantly. He currently has +2 edema in his L lower extremity only. Rustam showed me his foot ulcer, which I noted is completely scabbed over, without any signs of infection at this time. He is scheduled to receive foot/nail care at [facility] tomorrow. I reminded Rustam of the importance [...] PLAN: Refill of test strips sent to [facility] in [place]. Scheduled podiatry follow up appt on 10/06/17. [...] insulin documented in this encounter Care Teams Back Line Cook Relationship Specialty Start Date End Date Gagandeep Hinojosa MD PCP - General 05/17/[address] [place] [address] [place] [address] Vane Zarate Psychiatrist Psychiatry 03/22/12 [facility] Mental Health Psychotherapist 08/04/17 [facility] Otr Company Truck Driver 09/13/17 documented as of this encounter
--- OUTSIDE RECORDS SUMMARY | 2022-02-14 17:05 | XMS_ITS | Encounter Summary ---
:1970 Author Organization [employer] Address [address] [place] [address] Care Team Providers Name Role Phone Gagandeep Hinojosa MD Primary Care Provider Reason for Visit Reason Onset Date Comments Refill 01/11/2018 Encounter Details Date Type Department Care Team Description 01/11/2018 [facility]phone [facility] Gagandeep Hinojosa MD Refill 1415 [facility] . 1415 [place] [address] [place] [address] [phone] (Wo rk) Social History Tobacco Use Types [...] 11:01 AM CDT I will route to cattle care worker as he has appt with her tomorrow. [...] - 01/26/2018 11:38 AM CDT Performed at [facility], [address] [place] [address] CLIA number [id number] Gagandeep Hinojosa MD LAB_1 Performing Organization Address City/State/ZIP Code Phon e Number PN SOFT [address] [place] [address] documented in this encounter Visit Diagnoses Diagnosis Hyperkalemia - Primary Hyperpotassemia Uncontrolled type 2 diabetes mellitus wi th microalbuminuria, with long-term current use of insulin Hyperkalemia Hyperpotassemia documented in this encounter Care Teams Beater And Pulper Feeder Relationship Specialty Start Date End Date Gagandeep Hinojosa MD PCP - General 05/17/12 [address] [place] [address] Vane Zarate Psychiatrsamantha Psychiatry 03/22/12 [facility] Psychotherapist 08/04/17 [facility] District Administrator 09/13/17 documented as of this encounter
--- OUTSIDE RECORDS SUMMARY | 2022-02-14 17:05 | XMS_ITS | Encounter Summary ---
:1970 Author Organization [employer] Address [address] [place] [address] Care Team Providers Name Role Phone Gagandeep Hinojosa MD Primary Care Provider Reason for Visit Reason Comments Lab Questions Encounter Details Date Type Department Care Team Description 01/23/2018 Telephone [facility] Gagandeep Hinojosa MD Lab Questions 1415 [facility] . 1415 [facility] [address] [place] [address] [phone] (Wo rk) Social History Tobacco Use Types [...] filedocumented in this encounter Care Teams Sales Representative Cash Registers Relationship Specialty Start Date End Date Gagandeep Hinojosa MD PCP - General 05/17/[address] [place], [place] [address] [address] Vane Zarate Psychiatrist Psychiatry 03/22/12 [facility] Psychotherapist 08/04/17 [facility] Head Silverman 09/13/17 documented as of this encounter
--- OUTSIDE RECORDS SUMMARY | 2022-02-14 17:05 | XMS_ITS | Encounter Summary ---
:1970 Author Organization [email or web address] Address [address] [place] [address] Care Team Providers Name Role Phone Gagandeep Hinojosa MD Primary Care Provider Encounter Details Date Type Department Care Team Description 08/15/2017 Lab Visit [facility] Hyperlipidemia, unspecified hyperlipidemia type; [address] Uncontrolled type 2 diabetes mellitus with diabetic polyneuropathy, with long- term current use of insulin (HRC); [place] [address] Uncontrolled type 2 diabetes mellitus without complication, without long-term current use of insulin (HRC) [phone] Social History Tobacco Use Types Packs/Day Years [...] - 08/15/2017 12:05 PM CDT Performed at [facility], [address] [place] [id number] CLIA number [id number] Gagandeep Hinojosa MD LAB_1 Performing Organization Address [facility] Phon e Number PN SOFT [address] [place], [place] [address] [phone] (ABNORMAL) POCT Glycosylated Hemoglobin (HB A1C) (08/15/2017 [...] - 08/15/2017 8:55 AM CDT Performed at [facility], [address] [place] [address] CLIA number [id number] Gagandeep Hinojosa MD LAB_1 Performing Organization Address [facility]/ZIP Code Phon e Number PN SOFT [address] [place] [address] (ABNORMAL) Lipid Panel and Direct LDL(If Needed) [...] - 08/15/2017 3:34 PM CDT Performed at [facility], [address] [place] [address] CLIA number [id number] Gagandeep Hinojosa MD LAB_1 Performing Organization Address [facility] Phon e Number PN SOFT [address] [place] [address] Extra Serum Separator Tube (yellow) (08/15/2017 8:35 AM CDT) athologist Signature Extra SST Top Drawn PN SOFT Drawn Specimen (Source) Anatomical Location Collection Method / Collectio n Time Received Time / Laterality Volume Narrative PN SOFT - 08/15/2017 8:35 AM CDT Performed at [facility], [address] [place] [address] CLIA number [id number] Gagandeep Hinojosa MD LAB_1 Performing Organization Address City[facility] Phon e Number PN SOFT [address] [place] [address] documented in this encounter Visit Diagnoses Diagnosis Hyperlipidemia, unspecified hyperlipidem ia type (HRC) Uncontrolled type 2 diabetes mellitus wi th diabetic polyneuropathy, with long-term current use of insulin Uncontrolled type 2 diabetes mellitus wi thout complication, without long-term current use of insulin documented in this encounter Care Teams Data Integrity Consultant Relationship Specialty Start Date End Date Gagandeep Hinojosa MD PCP - General 05/17/12 0425 [facility] [place] [address] Vane Zarate Psychiatrist Psychiatry 03/22/12 [facility] Mental [facility] Psychotherapist 08/04/17 documented as of this encounter
--- OUTSIDE RECORDS SUMMARY | 2022-02-14 17:05 | XMS_ITS | Encounter Summary ---
:1970 Author Organization [employer] Address [address] [place] [address] Care Team Providers Name Role Phone Gagandeep Hinojosa MD Primary Care Provider Reason for Visit Reason Comments Questions Encounter Details Date Type Department Care Team Description 08/06/2017 Telephone [facility] Gagandeep Hinojosa MD Questions 1415 [facility] . [address] [place] [address] [place] [address] [phone] (Wo rk) Social History Tobacco Use Types [...] filedocumented in this encounter Care Teams Meat Stocker Relationship Specialty Start Date End Date Gagandeep Hinojosa MD PCP - General 05/17/12 1415 [facility] [place] [address] Vane Zarate Psychiatrist Psychiatry 03/22/12 [facility] Mental Health Psychotherapist 08/04/17 documented as of this encounter
--- OUTSIDE RECORDS SUMMARY | 2022-02-14 17:05 | XMS_ITS | Encounter Summary ---
:1970 Author Organization [employer] Address [address], [place] [address] Care Team Providers Name Role Phone Gagandeep Hinojosa MD Primary Care Provider Reason for Visit Reason Comments [facility] Phone Visit Encounter Details Date Type Department Care Team Description 01/10/2018 Care Coord Phone [facility] Deborah Rodrigues, [facility] Phone Visit Medicine [facility] 1415 [facility] . [address] [place] [address] [place] [address] [phone] Social History Tobacco Use Types Packs/Day Years Used Date Smoking Tobacco: Every Day Cigarettes 1 25 Smokeless Tobacco: Former Qu it: 10/25/2012 Comments: Smoking History Packs/day: Alcohol Use Standard Drinks/Week Comments No 0 (1 standard drink = 0.6 oz pure Alcoho lic Drinks/day: Amount:0; alcohol) Freq:Never; Sex Assigned at Date Recorded Not on file documented as of this encounter Progress Notes Deborah Rodrigues, [facility] - 01/10/2018 11:30 AM CDT Flatbed Company Driver - Phone Call Contact with: Rustam Reason for call: Care Coordination Discussion/actions: Called Rustam to check-in, since his discharge yesterday (01/09). Rustam reports I got too narrow in my thinking, but said he is doing better now. Rustam agreed to a hospital discharge appointment with his PCP, followed by a [facility] appointment. Rustam got tearful at some points [...] Primary documented in this encounter Care Teams Plate Take Out Worker Relationship Specialty Start Date End Date Gagandeep Hinojosa MD PCP - General 05/17/12 1415 [facility] [place] [address] Vane Zarate Psychiatrist Psychiatry 03/22/12 [facility] Mental Health Psychotherapist 08/04/17 [facility] Core Manager 09/13/17 documented as of this encounter
--- OUTSIDE RECORDS SUMMARY | 2022-02-14 17:05 | XMS_ITS | Encounter Summary ---
:1970 Author Organization [employer] Address [address] [place] [address] Care Team Providers Name Role Phone Gagandeep Hinojosa MD Primary Care Provider Reason for Visit Reason Comments Refill lisinopril (ZESTRIL) 10 MG t dirkt [Pharmacy Med Name: LISINOPRIL 10 MG TABLET] Encounter Details Date Type Department Care Team Description 12/05/2017 Refill Serge Daniels Refil l (lisinopril Medicine (ZESTRIL) 10 MG tablet [address] 1415 [facility] [Pharmacy Med Name: [place] [address] [place] [address] LISINOPRIL 10 MG [phone] (Wo rk) TABLET]) Social History Tobacco Use [...] TABLET BY MOUTH EVERY DAY. Interface, Out Clarassance Prov Query - 12/05/2017 9:54 PM CDT [...] K: 5 mEq/L on 04/29/2017 Powered by [employer], Reference: [id number], 12/05/2017 9:54:33 PM CDT, Pool: MANUEL REFILL ([id number]) documented in this encounter Plan of Treatment Not on filedocumented as of this encounter Visit Diagnoses Diagnosis Essential hypertension (HRC) Unspecified essential hypertension documented in this encounter Care Teams Corporate Scheduler Relationship Specialty Start Date End Date Gagandeep Hinojosa MD PCP - General 05/17/12 [address] [place] [address] Vane Zarate Psychiatrist Psychiatry 03/22/12 [facility] Mental Health Psychotherapist 08/04/17 [facility] Waterproofing Supervisor 09/13/17 documented as of this encounter
--- OUTSIDE RECORDS SUMMARY | 2022-02-14 17:05 | XMS_ITS | Encounter Summary ---
:1970 Author Organization [employer] Address [address], [place] [address] Care Team Providers Name Role Phone Gagandeep Hinojosa MD Primary Care Provider Reason for Visit Reason Comments HC Face To Face Visit Encounter Details Date Type Department Care Team Description 09/22/2017 Care Coord Deborah Odom, [facility] Fa ce To Face Office Visit Medicine [facility] Visit [address] [facility] [place] [address] [place] [address] [phone] Social History Tobacco Use Types Packs/Day Years Used Date Smoking Tobacco: Every Day Cigarettes 1 25 Smokeless Tobacco: Former Qu it: 10/25/2012 Comments: Smoking History Packs/day: Alcohol Use Standard Drinks/Week Comments No 0 (1 standard drink = 0.6 oz pure Alcoho lic Drinks/day: Amount:0; alcohol) Freq:Never; Sex Assigned at Date Recorded Not on file documented as of this encounter Progress Notes Deborah Rodrigues, [facility] - 09/22/2017 10:00 AM CDT Care Coordination [...] at this time and scheduled a follow-up [facility] appointment in 2 weeks. This note was [...] PLAN: -MH CM appointment 09/29 at 9:30. -[facility] appointment 10/06 at 8:00. -Therapy appointment weekly. Pt verbalized understanding and agreed with plan of care and follow up. documented in this encounter Plan of Treatment Not on filedocumented as of this encounter Visit Diagnoses Diagnosis Health retirement, active care coordinati on - Primary documented in this encounter Care Teams Security Architect Relationship Specialty Start Date End Date Gagandeep Hinojosa MD PCP - General 05/17/12 1415 [facility] [place] [address] Vane Zarate Psychiatrist Psychiatry 03/22/12 [facility] Psychotherapist 08/04/17 [facility] CM Assistant Professor Of Archaeology 09/13/17 documented as of this encounter
--- OUTSIDE RECORDS SUMMARY | 2022-02-14 17:05 | XMS_ITS | Encounter Summary ---
:1970 Author Organization [facility] Address [address], [place] [address] Care Team Providers Name Role Phone Gagandeep Hinojosa MD Primary Care Provider Reason for Visit Reason Comments [facility] Face To Face Visit Encounter Details Date Type Department Care Team Description 01/12/2018 Care Coord Deborah Odom, [facility] Fa ce To Face Office Visit Medicine [facility] Visit [address] [place] 1415 [facility] [place] [address] [place] [address] [phone] Social History Tobacco Use Types Packs/Day Years Used Date Smoking Tobacco: Every Day Cigarettes 1 25 Smokeless Tobacco: Former Qu it: 10/25/2012 Comments: Smoking History Packs/day: Alcohol Use Standard Drinks/Week Comments No 0 (1 standard drink = 0.6 oz pure Alcoho lic Drinks/day: Amount:0; alcohol) Freq:Never; Sex Assigned at Date Recorded Not on file documented as of this encounter Progress Notes Deborah Rodrigues, [facility] - 01/12/2018 10:00 AM CDT Care Coordination Visit Pt: Timur Krishnamurthy Referred by: Gagandeep Hinojosa MD Reason for visit: Care Coordination Timur was seen alone. Discussion/actions: Met with Rustam for a scheduled [facility] appointment. RN Sales And Marketing Administrator, Judy Pittman, was present for the appointment. [...] and he was hoping to go to [facility]. Rustam stated that he talk to them, but they do not accept Medicare, so he is planning on applying for MA. I explained to Rustam that he is well over income guidelines for [place] or [place], so he would have to pay for private insurance. I encouraged him to discuss his options with his [facility] CM, who he is meeting with [...] Primary documented in this encounter Care Teams Group Therapist Relationship Specialty Start Date End Date Gagandeep Hinojosa MD PCP - General 05/17/12 [facility] [place] [address] Vane Zarate Psychiatrist Psychiatry 03/22/12 [facility] Health Psychotherapist 08/04/17 [facility] CM Creative Arts Therapist 09/13/17 documented as of this encounter
--- OUTSIDE RECORDS SUMMARY | 2022-02-14 17:05 | XMS_ITS | Encounter Summary ---
:1970 Author Organization [employer] Address [address] [place] [address] Care Team Providers Name Role Phone Gagandeep Hinojosa MD Primary Care Provider Encounter Details Date Type Department Care Team Description 01/26/2018 Lab Visit [facility] Hyperkalemia 1415 [facility] . [place], [place] [address] Social History Tobacco Use Types Packs/Day Years [...] - 01/26/2018 11:38 AM CDT Performed at [facility], [address] [place] [address] CLIA number [id number] Gagandeep Hinojosa MD LAB_1 Performing Organization Address City/State/ZIP Code Phon e Number PN SOFT [address] [place] [address] documented in this encounter Visit Diagnoses Diagnosis Hyperkalemia Hyperpotassemia documented in this encounter Care Teams Optical Scientist Relationship Specialty Start Date End Date Gagandeep Hinojosa MD PCP - General 05/17/12 1415 [facility] [place] [address] Vane Zarate Psychiatrist Psychiatry 03/22/12 [facility] Mental Health Psychotherapist 08/04/17 [facility] Load Planner 09/13/17 documented as of this encounter
--- OUTSIDE RECORDS SUMMARY | 2022-02-14 17:05 | XMS_ITS | Encounter Summary ---
:1970 Author Organization [employer] Address [address], [place] [address] Care Team Providers Name Role Phone Gagandeep Hinojosa MD Primary Care Provider Reason for Visit Procedure/Equipment (Routine) - Incomplete Specialty Diagnoses / Procedures Referred By Contact Refer red To Contact Diagnoses Left foot pain Diabetic ulcer of left midfoot associated with type 2 diabetes mellitus, with muscle involvement without evidence of necrosis (HRC) Gagandeep Hinojosa MD Procedures XR Foot Lt 2 Views [address] [place] [address] Referral ID Status Reason Start Date Expiration Date Visits V isits Requested Authorized [id number] Incomplete 08/05/2017 11/04/2018 1 1 Encounter Details Date Type Department Care Team Description 08/05/2017 [facility] Gagandeep Hinojosa, Left foot pain; [address] Diabetic ulcer of left midfoot associate d with type 2 diabetes mellitus, with muscle involvement without evidence of necrosis (HRC) [place] [address] 1415 [facility] [phone] [place] [phone] (Wo rk) Social History Tobacco Use [...] (HRC) documented in this encounter Care Teams Pathology Secretary Relationship Specialty Start Date End Date Gagandeep Hinojosa MD PCP - General 05/17/12 1415 [facility] [place] [address] Vane Zarate Psychiatrist Psychiatry 03/22/12 [facility] Psychotherapist 08/04/17 documented as of this encounter
--- OUTSIDE RECORDS SUMMARY | 2022-02-14 17:05 | XMS_ITS | Encounter Summary ---
:1970 Author Organization [employer] Address [address] [place] [address] Care Team Providers Name Role Phone Gagandeep Hinojosa MD Primary Care Provider Reason for Visit Reason Comments Hospital Discharge Follow-up Encounter Details Date Type Department Care Team Description 01/16/2018 Office Visit Gagandeep Storm Bipolar I disorder (HRC) (Primary Dx); Romario Rubio MD Encounter for immunization; [address] [facility] [place] [address] Ave [phone] [place], [place] [address] Social History Tobacco Use Types [...] Body Mass Index 29.56 04/05/2017 3:18 PM MECHANICAL SOUND TECHNICIAN documented in this encounter Progress Notes Gagandeep Hinojosa MD - 01/16/2018 1:00 PM CDT ICD-10-CM 1. Bipolar I disorder ([facility]) F31.9 2. Encounter for immunization Z23 Influenza IIV4 (Quadrivalent) 0.5 mL (33106) 3. Hyponatremia E87.1 Basic Metabolic Panel CHIEF COMPLAINT: Chief Complaint Patient presents with ??? Hospital Discharge Follow-up SUBJECTIVE : Timur Krishnamurthy is an 47 y.o. male who presents for posthospitalization recheck. [facility]iazepine and was not comfortable at that facility, signing himself out AMA. He was subsequently readmitted to [facility], where he has more comfort andwas [...] Noted ??? Hyponatremia 01/16/2018 ??? Tobacco abuse ([facility]) 02/24/2016 ??? Tinea versicolor 07/18/2015 ??? Tobacco use disorder ([facility]) 10/26/2012 ??? Anemia 05/02/2012 Overview Note: Anemia, unspecified ??? Health senior living, active care coordination 03/22/2012 Overview Note: Machine Rough Rounder: JOSETTE Yip [phone] Care coordination focus: T2DM, financial resources Living situation: lives with spouse Important notes: SSDI, significant insulin resistance, uses Relion insulin, commonly reaches Medicare Coverage Gap See care plan under Chart Review > [facility] CARE PLAN REPORT ??? Microalbuminuria 02/04/2012 ??? RI, old ([facility]) 09/16/2011 ??? History of PTCA 09/16/2011 Overview Note: History of PTCA 04/2011 BMS RCA ??? Obesity, Class I, BMI 30-34.9 ([facility]) 09/16/2011 Overview Note: Body mass index is 31.16 kg/(m^2). ??? Hyperlipidemia with target LDL less than 70 ([facility]) 06/08/2011 Overview Note: Hyperlipidemia LDL goal < 70 ??? ASHD (arteriosclerotic heart disease) ([facility]) 05/04/2011 ??? Erectile dysfunction 01/22/2011 Overview Note: side effect Risperdal ??? Type 2 diabetes mellitus, uncontrolled ([facility]) 12/11/2010 Overview Note: Type II or unspecified type diabetes mellitus without mention of complication, uncontrolled ([facility]) ??? Dermatophytosis of body 09/04/2010 Class: Historical Overview Note: Tinea Corporis ??? Coronary atherosclerosis ([facility]) 12/22/2009 Overview Note: LW Modifier: mod RCA, negative nuclear stress test ; CAD ??? Nonspecific abnormal results of liver function study 12/22/2009 Overview Note: Liver Function Tests Abnormal ??? Bipolar I disorder ([facility]) 09/15/2005 Overview Note: LW Onset: [id number] ; Bipolar I Dis FAMILY HISTORY OR [...] immunization Z23 Influenza IIV4 (Quadrivalent) 0.5 mL (38203) 3. Hyponatremia E87.1 Basic Metabolic Panel Follow-up: [...] - 01/16/2018 6:36 PM CDT Performed at [facility], [address] [place] [address] CLIA number [id number] Gagandeep Hinojosa MD LAB_1 Performing Organization Address City/State/ZIP Code Phon e Number PN SOFT [address] [place] [address] documented in this encounter Visit Diagnoses Diagnosis Bipolar I disorder (HRC) - Primary Bipolar I disorder, most recent episode (or current) unspecified Encounter for immunization Need for other specified prophylactic va ccination against single bacterial disease Hyponatremia Hyposmolality and/or hyponatremia Hyponatremia Hyposmolality and/or hyponatremia documented in this encounter Care Teams Boat And Plant Utility Supervisor Relationship Specialty Start Date End Date Gagandeep Hinojosa MD PCP - General 05/17/12 [facility] [place] [address] Vane Zarate Psychiatrsamantha Psychiatry 03/22/12 [facility] Psychotherapist 08/04/17 [facility] School Cook 09/13/17 documented as of this encounter
--- OUTSIDE RECORDS SUMMARY | 2022-02-14 17:05 | XMS_ITS | Encounter Summary ---
:1970 Author Organization [employer] Address [address] [place] [address] Care Team Providers Name Role Phone Gagandeep Hinojosa MD Primary Care Provider Reason for Visit Reason Comments APPOINTMENT REQUEST Encounter Details Date Type Department Care Team Description 09/12/2017 Telephone [facility] Gagandeep Hinojosa, APPOINTMENT REQUEST [address] [facility] [address] [place] [address] [place], [place] [address] (Wo rk) Social History Tobacco Use Types [...] PM CDT Reason for Call: Deborah Rodrigues DIGITAL MARKETING MANAGER - Patient calls. He has an appointment on 09/13/17 at 8 am. States, recently had Surgery and he needs to be with her tomorrow. He prefers to speak with you byphone instead of at [facility] 09/13/17 at 8am. Patient Timur may be contacted at [phone]. documented in this encounter Plan of Treatment Not on filedocumented as of this encounter Visit Diagnoses Not on filedocumented in this encounter Care Teams Artillery Or Naval Gunfire Observer Relationship Specialty Start Date End Date Gagandeep Hinojosa MD PCP - General 05/17/[address] [place] [address] Vane Zarate Psychiatrist Psychiatry 03/22/12 [facility] Psychotherapist 08/04/17 [facility] Muffle Operator 09/13/17 documented as of this encounter
--- OUTSIDE RECORDS SUMMARY | 2022-02-14 17:05 | XMS_ITS | Encounter Summary ---
:1970 Author Organization [employer] Address [address], [place] [address] Care Team Providers Name Role Phone Gagandeep Hinojosa MD Primary Care Provider Reason for Visit Reason Comments [facility] Phone Visit Encounter Details Date Type Department Care Team Description 09/09/2017 Care Coord Phone [facility] Deborah Rodrigues, [facility] Phone Visit Medicine [facility] [address] [facility] . [address] [place] [address] [place] [address] [phone] Social History Tobacco Use Types Packs/Day Years Used Date Smoking Tobacco: Every Day Cigarettes 1 25 Smokeless Tobacco: Former Qu it: 10/25/2012 Comments: Smoking History Packs/day: Alcohol Use Standard Drinks/Week Comments No 0 (1 standard drink = 0.6 oz pure Alcoho lic Drinks/day: Amount:0; alcohol) Freq:Never; Sex Assigned at Date Recorded Not on file documented as of this encounter Progress Notes Deborah Rodrigues, [facility] - 09/09/2017 8:00 AM CDT Technician Support Engineer - Phone Call Contact with: Rustam [...] prior to his next appointment. Shared plan: -[facility] appointment 09/13 at 8:00. Pt verbalized understanding and agreed with plan of care and follow up. documented in this encounter Plan of Treatment Not on filedocumented as of this encounter Visit Diagnoses Diagnosis Health fdc, active care coordinati on - Primary documented in this encounter Care Teams Barge Master Relationship Specialty Start Date End Date Gagandeep Hinojosa MD PCP - General 05/17/12 [address] [place] [address] Vane Zarate Psychiatrist Psychiatry 03/22/12 [facility] Mental [facility] Psychotherapist 08/04/17 documented as of this encounter
--- OUTSIDE RECORDS SUMMARY | 2022-02-14 17:05 | XMS_ITS | Encounter Summary ---
:1970 Author Organization [employer] Address [address] [place] [address] Care Team Providers Name Role Phone Gagandeep Michaud MD Primary Care Provider Reason for Visit Reason Onset Date Comments Refill 09/21/2017 blood glucose (ONE T OUCH ULTRA BLUE) test strip Encounter Details Date Type Department Care Team Description 09/21/2017 Refill [place] [facility] Gagandeep Michaud, Refil l (blood glucose Medicine (ONE TOUCH ULTRA BLUE) [address] [facility] test strip) [place] [address] [place], [place] [address] (Wo rk) Social History Tobacco Use Types [...] requested refills for testing strips to [facility] pharmacy. Interface, Out Surescripts Prov Query - 09/21/2017 2:39 PM CDT blood glucose (ONE TOUCH ULTRA BLUE) test strip Medication started: 06/09/2016 Last ordered by GAGANDEEP MICHADU F: 09/20/2017 (1 days ago) QTY: 100, [...] MICHAUD) Next scheduled visit: None Powered by [employer], Reference: [id number], 09/21/2017 2:39:52 PM CDT, Pool: MANUELNoni LANDAILL ([id number]) Evelin Stockton - 09/21/2017 2:39 PM CDT DIAGNOSIS CODE REQUEST: Request received for ICD-10 code to be listed on rx. Please advise, thank you. documented in this encounter Plan of Treatment Not on filedocumented as of this encounter Visit Diagnoses Diagnosis Uncontrolled type 2 diabetes mellitus wi th microalbuminuria, with long-term current use of insulin - Primary documented in this encounter Care Teams Bottle Washing Machine Operator Relationship Specialty Start Date End Date Gagandeep Michaud MD PCP - General 05/17/12 14[address] [facility] [place] [address] Vane Zarate Psychiatrsamantha Psychiatry 03/22/12 [facility] Psychotherapist 08/04/17 [facility] Liquor Store Manager 09/13/17 documented as of this encounter
--- OUTSIDE RECORDS SUMMARY | 2022-02-14 17:05 | XMS_ITS | Encounter Summary ---
:1970 Author Organization [employer] Address [address] [place] [address] Care Team Providers Name Role Phone Gagandeep Hinojosa MD Primary Care Provider Encounter Details Date Type Department Care Team Description 01/19/2018 Lab Visit [facility] Encounter for long-term [address] (current) use of [place] [address] medications [phone] Social History Tobacco Use Types Packs/Day Years [...] - 01/19/2018 4:07 [place] [address] CLIA number [id number] Joey Zarate MD LAB_1 Performing Organization Address City/State/ZIP Code Phon e Number PN SOFT [address] [place] [address] [phone] T3, Free, Serum (01/19/2018 11:41 AM CDT) athologist Signature Triiodothyronin 2.5 1.7 - 3.7 PN SOFT e, Free pg/mL Specimen Anatomical Collection Method Collection Time Receive d Time (Source) Location / / Volume Laterality 01/19/2018 11:41 01/19/2018 3:07 AM CDT PM CDT Narrative PN SOFT - 01/19/2018 4:07 PM CDT Performed at [facility] [place] [address] [place] [address] CLIA number [id number] .Results faxed to Jennifer Zarate M.D 9,[phone], 01/19/2018,16:15, by [place] Joey Zarate MD LAB_1 Performing Organization Address [facility] Code Phon e Number PN SOFT [address] [place] [address] (ABNORMAL) TSH (01/19/2018 11:41 AM CDT) Patholo gist Method Time Signature Thyroid 4.52 (H) 0.30 - PN SOFT Stimulating 4.50 Hormone uIU/mL Specimen Anatomical Collection Method Collection Time Receive d Time (Source) Location / / Volume Laterality 01/19/2018 11:41 01/19/2018 3:07 AM CDT PM CDT Narrative PN SOFT - 01/19/2018 4:07 PM CDT Performed at [facility] [place] [address] CLIA number [id number] Joey Zarate MD LAB_1 Performing Organization Address [facility] Code Phon e Number PN SOFT [address] [place] [address] (ABNORMAL) Sodium (01/19/2018 11:41 AM CDT) P athologist Signature Sodium 135 (L) 136 - 145 PN SOFT mmol/L Specimen Anatomical Collection Method Collection Time Receive d Time (Source) Location / / Volume Laterality 01/19/2018 11:41 01/19/2018 2:49 AM CDT PM CDT Narrative PN SOFT - 01/19/2018 3:54 PM CDT Performed at [facility], [address] [place] [address] CLIA number [id number] Joey Zarate MD LAB_1 Performing Organization Address [facility] Phon e Number PN SOFT [address] [place] [address] (ABNORMAL) Creatinine / GFR (01/19/2018 11:41 AM [...] [facility], [address] [place] [address] CLIA number [id number] Joey Zarate MD LAB_1 Performing Organization Address [facility] Phon e Number PN SOFT [address] [place] [address] [phone] [place] (01/19/2018 11:41 AM CDT) Analysis Performed At Patho logist Time Signature Date Last Dose 01-19-2018 PN SOFT Lith Time Last Dose 730 am PN SOFT [place] Level 0.73 0.50 - PN SOFT 1.10 mmol/L Specimen Anatomical Collection Method Collection Time Receive d Time (Source) Location / / Volume Laterality 01/19/2018 11:41 01/19/2018 3:09 AM CDT PM CDT Narrative PN SOFT - 01/19/2018 3:38 PM CDT Performed at [facility], [address] [place] [address] CLIA number [id number] Joey Zarate MD LAB_1 Performing Organization Address [facility] Phon e Number PN SOFT [address] [place] [address] (ABNORMAL) Hgb A1c (01/19/2018 11:41 AM CDT) P athologist Signature HGB A1C 8.0 (H) 4.0 - 5.6 % PN SOFT Specimen Anatomical Collection Method Collection Time Receive d Time (Source) Location / / Volume Laterality 01/19/2018 11:41 01/19/2018 3:10 AM CDT PM CDT Narrative PN SOFT - 01/19/2018 10:04 PM CDT Performed at [facility] [place] [address] CLIA number [id number] .Results faxed to Jennifer Zarate M.D 9,[phone], 01/19/2018,16:15, by [place] Joey Zarate MD LAB_1 Performing Organization Address City/[facility] Phon e Number PN SOFT [address] [place] [address] Call List Questions (01/19/2018 11:35 AM CDT) athologist Signature Call Back Done PN KENDAL Documented Specimen (Source) Anatomical Collection Method Collection Time Re ceived Time Location / / Volume Laterality 01/19/2018 11:35 AM CDT Narrative PN SOFT - 01/19/2018 11:35 AM CDT Performed at [facility], [address] [place] [address] CLIA number [id number] Joey Zarate MD LAB_1 Performing Organization Address [facility] Phon e Number SOFT [address] [place] [address] documented in this encounter Visit Diagnoses Diagnosis Encounter for long-term (current) use of medications Encounter for long-term (current) use of other medications documented in this encounter Care Teams Grade Checker Relationship Specialty Start Date End Date Gagandeep Hinojosa MD PCP - General 05/17/[address] [place] [address] Vane Zarate Psychiatrist Psychiatry 03/22/12 [facility] Psychotherapist 08/04/17 [facility] Cisco Network Engineer 09/13/17 documented as of this encounter
--- OUTSIDE RECORDS SUMMARY | 2022-02-14 17:05 | XMS_ITS | Encounter Summary ---
:1970 Author Organization [employer] Address [address], [place] [address] Care Team Providers Name Role Phone Gagandeep Hinojosa MD Primary Care Provider Reason for Visit Reason Comments [facility] Phone Visit Encounter Details Date Type Department Care Team Description 11/11/2017 Care Coord Phone [facility] Deborah Rodrigues, [facility] Phone Visit Medicine [facility] [address] [facility] . [address] [place] [address] [place] [address] [phone] Social History Tobacco Use Types Packs/Day Years Used Date Smoking Tobacco: Every Day Cigarettes 1 25 Smokeless Tobacco: Former Qu it: 10/25/2012 Comments: Smoking History Packs/day: Alcohol Use Standard Drinks/Week Comments No 0 (1 standard drink = 0.6 oz pure Alcoho lic Drinks/day: Amount:0; alcohol) Freq:Never; Sex Assigned at Date Recorded Not on file documented as of this encounter Progress Notes Deborah Rodrigues, [facility] - 11/11/2017 8:46 AM CDT Seismograph Observer - Phone Call Contact with: Rustam Reason [...] Rodrigues LICSW - 11/11/2017 8:45 AM CDT Seismograph Observer - Phone Call Contact with: Rustam Reason [...] Primary documented in this encounter Care Teams Utilities And Maintenance Supervisor Relationship Specialty Start Date End Date Gagandeep Hinojosa MD PCP - General 05/17/12 [address] [facility] [place] [address] Vane Zarate Psychiatrist Psychiatry 03/22/12 [facility] Psychotherapist 08/04/17 [facility] Tower Equipment Installer 09/13/17 documented as of this encounter
--- OUTSIDE RECORDS SUMMARY | 2022-02-14 17:05 | XMS_ITS | Encounter Summary ---
:1970 Author Organization [employer] Address [address], [place] [address] Care Team Providers Name Role Phone Gagandeep Hinojosa MD Primary Care Provider Reason for Referral Consult/Transfer Care (Routine) - Closed Specialty Diagnoses / Procedures Referred By Contact Refer red To Contact Diagnoses Diabetic ulcer of left midfoot associated with type 2 diabetes mellitus, limited to breakdown of skin (HRC) Gagandeep Hinojosa MD [address] [facility] [place] [address] Referral ID Status Reason Start Date Expiration Date Visits Requ ested Visits Authorized [id number] Closed 08/15/2017 11/14/2018 1 1 Scheduling Instructions Your provider has recommended an appoint ment with [facility]. You may call [phone] to sc hedule your appointment. If you [...] Dx); Romario Rubio MD Essential hypertension; [address] [facility] Bipolar I disorder (HRC); Ave. Ave Diabetic ulcer of left midfoot associate d with type 2 diabetes mellitus, limited to breakdown of skin ([facility]); [place] [address] [place], [place] Type 2 diabetes mellitus wit h diabetic polyneuropathy, without long-term current use of insulin ([facility]); [phone] [address] Type II diabetes mellitus with neurologi estrella manifestations ([facility]); [phone] Tobacco use dis order (Work) Social History [...] Body Mass Index 29.41 04/05/2017 3:18 PM INFANTRYMAN documented in this encounter Progress Notes Gagandeep [...] complication, without long-term current use of insulin ([facility]) E11.65 POCT Glycosylated Hemoglobin (HB A1C) metFORMIN (GLUCOPHAGE) 500 MG tablet 2. Essential hypertension ([facility]) I10 metoprolol succinate (TOPROL XL) 50 MG 24 hour release tablet Electrolyte Panel Creatinine / GFR 3. Bipolar I disorder ([facility]) F31.9 4. Diabetic ulcer of left midfoot associated with type 2 diabetes mellitus, limited to breakdown of skin ([facility]) E11.621 Foot & Ankle/Podiatry Consult-Adult/Peds L97.421 5. Type 2 diabetes mellitus with diabetic polyneuropathy, without long-term current use of insulin ([facility]) E11.42 POCT Glycosylated Hemoglobin (HB A1C) Microalb/Creat Ratio Lipid Panel and Direct LDL(If Needed) 6. Type II diabetes mellitus with neurological manifestations ([facility]) E11.49 7. Tobacco use disorder ([facility]) F17.200 PLAN: 1. Podiatry referral, he may [...] Hemoglobin (HB A1C) (08/15/2017 8:43 AM CDT) [facility] gist Method Time Signature Glycosolated HGB 7.7 [...] - 08/15/2017 8:55 AM CDT Performed at [address] [address] CLIA number [id number] Gagandeep Hinojosa MD LAB_1 Performing Organization Address City/State/ZIP Code Phon e Number PN SOFT [address] [place] [address] documented in this encounter Visit Diagnoses Diagnosis [...] insulin documented in this encounter Care Teams Process Safety Engineer Relationship Specialty Start Date End Date Gagandeep Hinojosa MD PCP - General 05/17/[address] [place] [address] [place] [address] Vane Zarate Psychiatrist Psychiatry 03/22/12 [facility] Mental [facility] Psychotherapist 08/04/17 documented as of this encounter
--- OUTSIDE RECORDS SUMMARY | 2022-02-14 17:05 | XMS_ITS | Encounter Summary ---
:1970 Author Organization [employer] Address [address] [place] [address] Care Team Providers Name Role Phone Gagandeep Hinojosa MD Primary Care Provider Reason for Visit Reason Comments Medication Request Encounter Details Date Type Department Care Team Description 09/20/2017 Telephone [facility] Gagandeep Hinojosa, Medication Request [address] [facility] [place] [address] [address] [facility] [phone] [place], [place] [address] (Wo rk) Social History Tobacco [...] on filedocumented in this encounter Care Teams Developer Automatic Relationship Specialty Start Date End Date Gagandeep Hinojosa MD PCP - General 05/17/[address] [place] [address] [place] [address] Vane Zarate Psychiatrist Psychiatry 03/22/12 [facility] Psychotherapist 08/04/17 [facility] Manager Language 09/13/17 documented as of this encounter
--- OUTSIDE RECORDS SUMMARY | 2022-02-14 17:05 | XMS_ITS | Encounter Summary ---
:1970 Author Organization [employer] Address [address] [place] [address] Care Team Providers Name Role Phone Gagandeep Hinojosa MD Primary Care Provider Encounter Details Date Type Department Care Team Description 01/19/2018 Notes/Orders [facility] Vane Zarate, Encounter for long-term 14[address]daleDilip Bonds MD (current) use of [place] [address] medications (Primary [phone] HEAVEN [address] Dx) [place], [place] [address] Social History Tobacco Use Types Packs/Day Years [...] - 01/19/2018 4:07 PM CDT Performed at [facility] [place] [address] CLIA number [id number] Joey Zarate MD LAB_1 Performing Organization Address [facility] Phon e Number PN SOFT [address] [place] [address] T3, Free, Serum (01/19/2018 11:41 AM CDT) P athologist Signature Triiodothyronin 2.5 1.7 - 3.7 PN SOFT e, Free pg/mL Specimen Anatomical Collection Method Collection Time Receive d Time (Source) Location / / Volume Laterality 01/19/2018 11:41 01/19/2018 3:07 AM CDT PM CDT Narrative PN SOFT - 01/19/2018 4:07 PM CDT Performed at [address] [address] CLIA number [id number] .Results faxed to Jennifer Zarate M.D 9,[phone], 01/19/2018,16:15, by MONROE Joey Zarate MD LAB_1 Performing Organization Address [facility] Phon e Number PN SOFT [address] [place] [address] [phone] (ABNORMAL) TSH (01/19/2018 11:41 AM CDT) [facility] gist Method Time Signature Thyroid 4.52 (H) 0.30 - PN SOFT Stimulating 4.50 Hormone uIU/mL Specimen Anatomical Collection Method Collection Time Receive d Time (Source) Location / / Volume Laterality 01/19/2018 11:41 01/19/2018 3:07 AM CDT PM CDT Narrative PN SOFT - 01/19/2018 4:07 PM CDT Performed at [address] [address] CLIA number [id number] Joey Zarate MD LAB_1 Performing Organization Address [facility] Phon e Number PN SOFT [address] [place] [address] (ABNORMAL) Sodium (01/19/2018 11:41 AM CDT) P athologist Signature Sodium 135 (L) 136 - 145 PN SOFT mmol/L Specimen Anatomical Collection Method Collection Time Receive d Time (Source) Location / / Volume Laterality 01/19/2018 11:41 01/19/2018 2:49 AM CDT PM CDT Narrative PN SOFT - 01/19/2018 3:54 PM CDT Performed at [facility], [facility][note 3] [address] [place] [address] CLIA number [id number] Joey Zarate MD LAB_1 Performing Organization Address City/[facility] Code Phon e Number PN SOFT [address] [place] [address] [phone] (ABNORMAL) Creatinine / GFR (01/19/2018 11:41 AM [...] - 01/19/2018 3:54 PM CDT Performed at [facility], [facility][note 3] [address] [place] [address] CLIA number [id number] Joey Zarate MD LAB_1 Performing Organization Address City/[facility] Code Phon e Number PN SOFT [address] [place] [address] [phone] [place] (01/19/2018 11:41 AM CDT) Analysis Performed At Patho logis Time Signature Date Last Dose 01-19-2018 PN SOFT Lith Time Last Dose 730 am PN SOFT [place] Level 0.73 0.50 - PN SOFT 1.10 mmol/L Specimen Anatomical Collection Method Collection Time Receive d Time (Source) Location / / Volume Laterality 01/19/2018 11:41 01/19/2018 3:09 AM CDT PM CDT Narrative PN SOFT - 01/19/2018 3:38 PM CDT Performed at [address] [address] CLIA number [id number] Joey Zarate MD LAB_1 Performing Organization Address [facility] Phon e Number PN SOFT [address] [place] [address] (ABNORMAL) Hgb A1c (01/19/2018 11:41 AM CDT) athologist Signature HGB A1C 8.0 (H) 4.0 - 5.6 % PN SOFT Specimen Anatomical Collection Method Collection Time Receive d Time (Source) Location / / Volume Laterality 01/19/2018 11:41 01/19/2018 3:10 AM CDT PM CDT Narrative PN SOFT - 01/19/2018 10:04 PM CDT Performed at [address] [address] CLIA number [id number] .Results faxed to Jennifer Zarate M.D 9,[phone], 01/19/2018,16:15, by MONROE Joey Zarate MD LAB_1 Performing Organization Address [facility] Phon e Number PN SOFT [address] [place] [address] Call List Questions (01/19/2018 11:35 AM CDT) P athologist Signature Call Back Done PN SOFT Documented Specimen (Source) Anatomical Collection Method Collection Time Re ceived Time Location / / Volume Laterality 01/19/2018 11:35 AM CDT Narrative PN SOFT - 01/19/2018 11:35 AM CDT Performed at [address] [address] CLIA number [id number] Joey Zarate MD LAB_1 Performing Organization Address [facility]/ZIP Code Phon e Number PN SOFT [address] [place] [address] documented in this encounter Visit Diagnoses Diagnosis Encounter for long-term (current) use of medications - Primary Encounter for long-term (current) use of other medications Encounter for long-term (current) use of medications Encounter for long-term (current) use of other medications documented in this encounter Care Teams Commercial Real Estate Sales Manager Relationship Specialty Start Date End Date Gagandeep Hinojosa MD PCP - General 05/17/12 14[address] [facility] [place] [address] Vane Zarate Psychiatrist Psychiatry 03/22/12 [facility] Psychotherapist 08/04/17 [facility] Air Defense Specialist 09/13/17 documented as of this encounter
--- OUTSIDE RECORDS SUMMARY | 2022-02-14 17:05 | XMS_ITS | Encounter Summary ---
:1970 Author Organization [employer] Address [address] [place] [address] Care Team Providers Name Role Phone Gagandeep Hinojosa MD Primary Care Provider Reason for Visit Reason Comments HC Face To Face Visit Encounter Details Date Type Department Care Team Description 08/04/2017 Care Coord Judy Luke RN [facility] Face To Face Office Visit Medicine 1415 [facility] Visit [address] [place] [address] Social History Tobacco Use Types Packs/Day Years [...] RN - 08/04/2017 9:00 AM CDT RN Cost Manager Visit Pt: Timur Krishnamurthy Referred by: [...] or others. Rustam continues to see his [facility] therapist every Tuesday and notes he [...] place including monthly psychiatry, weekly therapy, weekly [facility], and [facility] walk-in every Tuesday. Rustam has previously worked with MH Case Management through [facility] and thinks this would be helpful again. So, we called [facility] together and requested Han Arshad, the [...] at work, but not walking at the [employer] anymore. Heis interested in trying basketball. Rustam states he isn't really exercising at this time, rather he is periodically walking at the [employer], only about 2 times a week. He wants to do more, but has struggled with motivation. I reminded Rusatm of the importance of physical activity with [...] verify understanding. SHARED PLAN: Left message for [facility] requesting a Garment Alteration Examiner. Continue regular mental health follow up appts [...] insulin documented in this encounter Care Teams Vba Developer Relationship Specialty Start Date End Date Gagandeep Hinojosa MD PCP - General 05/17/[address] [place] [address] [place] [address] Vane Zarate Psychiatrist Psychiatry 03/22/12 [facility] Psychotherapist 08/04/17 documented as of this encounter
--- OUTSIDE RECORDS SUMMARY | 2022-02-14 17:05 | XMS_ITS | Encounter Summary ---
:1970 Author Organization [employer] Address [address], [place] [address] Care Team Providers Name Role Phone Gagandeep Hinojosa MD Primary Care Provider Reason for Referral Procedure/Equipment (Routine) - Closed Specialty Diagnoses / Procedures Referred By Contact Refer red To Contact Diagnoses Type 2 diabetes mellitus with diabetic neuropathy, unspecified whether exterminator helper insulin use (HRC) History of diabetic ulcer of foot Edward Nino DPM [address] [place], [place] [address] Referral ID Status Reason Start Date Expiration Date Visits Requ ested Visits Authorized [id number] Closed 10/08/2017 01/07/2019 1 1 Scheduling Instructions Your provider has recommended an appoint ment with [facility]. You may call [phone] t o schedule your appointment. If you [...] of skin (HRC) Gagandeep Hinojosa MD [address] [place] [address] Referral ID Status Reason Start Date Expiration Date Visits Requ ested Visits Authorized [id number] Closed 08/15/2017 11/14/2018 1 1 Encounter Details Date Type Department Care Team Description 10/06/2017 Initial Consult [place] [address] Edward Nino, Type 2 diabetes mellitus with diabetic neuropathy, unspecified whether exterminator helper insulin use (HRC) (Primary Dx); Podiatric MedSurg DPSimi History of diabetic ulcer of foot [address] [place] [address] [facility] [address] [place], [place] [phone] Social History Tobacco Use Types Packs/Day Years [...] 1:12 PM CDT NAME: SHARLENE VARNER MR#: [id number] CSN: [id number] AUTHENTICATING CLINICIAN: Edward Nino DPM CONFIRM #: [id number] LOC: 3239 CLINIC PROGRESS NOTE DATE OF VISIT: 10/06/2017 : 1970 47-year-old male who is seen for a diabetic foot check. He has a history of left foot ulcer, states none currently. No drainage. He has seen Khoa Armendariz RN, for foot care at [facility]. Typically wears a sandal or athletic shoe. Rarely goes barefoot or stocking-footed. Does not use any lotion on his feet. He states he does have some numbness and neuropathy in the forefoot. PAST MEDICAL HISTORY/MEDICATIONS/ALLERGIES: Reviewed in Epic. 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 He does smoke a pack of [...] go to a foot care nurse at [facility]. Follow up with me as needed. LATA:BREANNA C: CONFIRM #: [id number] documented in this encounter Plan of Treatment Scheduled Referrals Name Type Priority Associated Diagnoses Order S chedule Orthotics Order Referral Routine Type 2 diabetes mellitus with Ordered: 10/08/2017 diabetic neuropathy, unspecified whether long ter m insulin use (HRC ) History of diabetic ulcer of foot documented as of this encounter Visit Diagnoses Diagnosis Type 2 diabetes mellitus with diabetic n europathy, unspecified whether exterminator helper insulin use (HRC) - Primary History of diabetic ulcer of foot documented in this encounter Care Teams New Business Clerk Relationship Specialty Start Date End Date Gagandeep Hinojosa MD PCP - General 05/17/12 1415 [facility] [place] [address] Vane Zarate Psychiatrist Psychiatry 03/22/12 [facility] Psychotherapist 08/04/17 [facility] Plastics Fabricator 09/13/17 documented as of this encounter
--- OUTSIDE RECORDS SUMMARY | 2022-02-14 17:05 | XMS_ITS | Encounter Summary ---
:1970 Author Organization [employer] Address [address], [place] [address] Care Team Providers Name Role Phone Gagandeep Hinojosa MD Primary Care Provider Reason for Visit Reason Comments [facility] Phone Visit Encounter Details Date Type Department Care Team Description 09/05/2017 Care Coord Phone [facility] Deborah Rodrigues, [facility] Phone Visit Medicine [facility] [address] [facility] . [address] [place] [address] [place] [address] [phone] Social History Tobacco Use Types Packs/Day Years Used Date Smoking Tobacco: Every Day Cigarettes 1 25 Smokeless Tobacco: Former Qu it: 10/25/2012 Comments: Smoking History Packs/day: Alcohol Use Standard Drinks/Week Comments No 0 (1 standard drink = 0.6 oz pure Alcoho lic Drinks/day: Amount:0; alcohol) Freq:Never; Sex Assigned at Date Recorded Not on file documented as of this encounter Progress Notes Deborah Rodrigues, [facility] - 09/05/2017 10:30 AM CDT Bugg[facility] - Phone Call Contact with: Rustam Reason for call: Care Coordination Discussion/actions: Received a phone message from Rustam, that was forwarded from RN pet care technician, Judy Pittman. I called Rustam back, as we had previously discussed I would be his point of contact for anything other than his physical health. Rustam stated that he was at the [employer], so he could not talk long. [...] contain typographic or phonetic errors. Shared plan: -[facility] appointment 09/09 at 11:00. Pt verbalized understanding and agreed with plan of care and follow up. documented in this encounter Plan of Treatment Not on filedocumented as of this encounter Visit Diagnoses Diagnosis Health chcf, active care coordinati on - Primary documented in this encounter Care Teams Transplant Case Manager Relationship Specialty Start Date End Date Gagandeep Hinojosa MD PCP - General 05/17/[address] [place] [address] [place] [address] Vane Zarate Psychiatrist Psychiatry 03/22/12 [facility] Psychotherapist 08/04/17 documented as of this encounter
--- OUTSIDE RECORDS SUMMARY | 2022-02-14 17:05 | XMS_ITS | Encounter Summary ---
:1970 Author Organization [employer] Address [address], [place] [address] Care Team Providers Name Role Phone Gagandeep Hinojosa MD Primary Care Provider Reason for Visit Reason Comments [facility] Face To Face Visit Encounter Details Date Type Department Care Team Description 01/26/2018 Care Coord Deborah Odom, [facility] Fa ce To Face Office Visit Medicine [facility] Visit [address] [place] [address] [facility] [place] [address] [place] [address] [phone] Social History Tobacco Use Types Packs/Day Years Used Date Smoking Tobacco: Former Cigarettes 1 25 Smokeless Tobacco: Former Qu it: 10/25/2012 Comments: Smoking History Packs/day: Alcohol Use Standard Drinks/Week Comments No 0 (1 standard drink = 0.6 oz pure Alcoho lic Drinks/day: Amount:0; alcohol) Freq:Never; Sex Assigned at Date Recorded Not on file documented as of this encounter Progress Notes Deborah Rodrigues, [facility] - 01/26/2018 10:00 AM CDT Care Coordination Visit Pt: Timur Krishnamurthy Referred by: Gagandeep Hinojosa MD Reason for visit: Care Coordination Timur was seen alone. Discussion/actions: Met with Rustam for a scheduled [facility] appointment. RN Sawmill Moulder Operator, Judy Pittman, was present for the appointment. [...] starting to attend a Tuesday group through [facility], as it is not affordable for him to attend an IOP program. Rustam is also thinking about the possibility of attending an adult day program, if his MH CM can get funding through the [facility]. Rustam stated that he has [...] Hinojosa MD PCP - General 05/17/12 1415 [place] [address] Vane Zarate Psychiatrist Psychiatry 03/22/12 [facility] Psychotherapist 08/04/17 [facility] Cushion Spring Assembler 09/13/17 documented as of this encounter
--- OUTSIDE RECORDS SUMMARY | 2022-02-14 17:05 | XMS_ITS | Encounter Summary ---
:1970 Author Organization [employer] Address [address] [place] [address] Care Team Providers Name Role Phone Gagandeep Hinojosa MD Primary Care Provider Reason for Visit Reason Comments HC Face To Face Visit Encounter Details Date Type Department Care Team Description 09/01/2017 Care Coord Judy Luke RN [facility] Face To Face Office Visit Medicine 1415 [facility] Visit [address] [place] [address] Social History Tobacco Use Types Packs/Day Years [...] RN - 09/01/2017 11:00 AM CDT RN Retail Assistant Manager Visit Pt: Timur Krishnamurthy Referred by: [...] is a joint visit with ERLIN Salas Retail Assistant Manager. Mental Health Because of the complexity of Rustam's mental health, I recommended including ERLIN Salas Retail Assistant Manager in our visits for additional support. Please [...] the meantime, Rustam has met with aninsurance speech language specialist plans to enroll in a supplemental Medicare [...] Since then, Rustam was seen at the [facility] ED last Tuesday and dx with [...] identified: Finance and Emotional. BG Goals: Health [facility] Lab Goal <7 [...] documented in this encounter Care Teams Environmental Studies Department Chair Relationship Specialty Start Date End Date Gagandeep Hinojosa MD PCP - General 05/17/12 [address] [place] [address] Vane Zarate Psychiatrist Psychiatry 03/22/12 [facility] Psychotherapist 08/04/17 documented as of this encounter
--- OUTSIDE RECORDS SUMMARY | 2022-02-14 17:05 | XMS_ITS | Encounter Summary ---
:1970 Author Organization [employer] Address [address] [place] [address] Care Team Providers Name Role Phone Gagandeep Hinojosa MD Primary Care Provider Reason for Visit Reason Comments HC Face To Face Visit Encounter Details Date Type Department Care Team Description 01/12/2018 Care Coord Judy Luke RN [facility] Face To Face Office Visit Medicine 1415 [facility] Visit [address] [place] [address] Social History Tobacco Use Types Packs/Day Years [...] RN - 01/12/2018 10:00 AM CDT RN Inspector Metal Fabricating Visit Pt: Timur Krishnamurthy Referred by: Gagandeep [...] is a joint visit with Lesly Rodrigues PERSONAL CAREGIVER. He was hospitalized from 11/26-01/09 at [facility] for mental health and suicidal ideation. [...] assistance, Lesly and I recommended contacting his [facility] Mental Health Analog Circuit Designer for assistance and resources. Rustam agreed. Medication [...] verify understanding. SHARED PLAN: Contact Mental Health Analog Circuit Designer for assistance with medication and insurance resources. Continue current insulin regimen for now, use sliding scale as prescribed. Resume metformin 500 mg BID, gradually increase by 500 mg every 7 days up to 1,000 mg BID. SMBG qid as directed, record readings. HOSDC with Dr Hinojosa on 01/16/18. RN Inspector Metal Fabricating as needed for questions. Scheduled follow up [...] documented in this encounter Care Teams General Dentist/Owner Relationship Specialty Start Date End Date Gagandeep Hinojosa MD PCP - General 05/17/12 1415 [facility] [place] [address] Vane Zarate Psychiatrist Psychiatry 03/22/12 [facility] Psychotherapist 08/04/17 [facility] Analog Circuit Designer 09/13/17 documented as of this encounter
--- OUTSIDE RECORDS SUMMARY | 2022-02-14 17:05 | XMS_ITS | Encounter Summary ---
:1970 Author Organization [facility] Address [address] [place] [address] Care Team Providers Name Role Phone Gagandeep Hinojosa MD Primary Care Provider Reason for Visit Reason Comments [facility] Face To Face Visit Encounter Details Date Type Department Care Team Description 09/01/2017 Care Coord Yaritza [facility] Deborah Rodrigues, [facility] Fa ce To Face Office Visit Medicine [facility] Visit [address] [place] [address] [facility] [place] [address] [place] [address] [phone] Social History Tobacco Use Types Packs/Day Years [...] Notes Deborah Rodrigues, [facility] - 09/01/2017 11:00 AM CDT Care Coordination Visit Pt: Timur Krishnamurthy Referred by: Gagandeep Hinojosa MD Reason for visit: Care Coordination Timur was seen alone. Discussion/actions: Met with Rustam for joint appointment with RN Longwall Shearer Operator, Judy Pittman. She address his physicalhealth concerns and ongoing diabetes management. I spoke with Rustam about his current mental health concerns and what we can do to better support him. uRstam talked a lot during the appointment and [...] state again, and wants to work at [employer]. He has a follow-up psychiatric appointment in [...] thoughts of suicide. He is working at [email or web address], and is trying to make sure he maintains a good balance between work and home. Rustam has also been reducing his smoking, and has a quit date of 01/21, which she is really hoping to obtain. Rustam denied any other concerns at this time and schedule a follow-up [facility] appointment for next week. We willdiscuss [...] PLAN: -MH CM appointment 09/06 at 10:30. [facility] appointment 09/09 at 11:00. Pt verbalized understanding and agreed with plan of care and follow up. documented in this encounter Miscellaneous Notes Assessment & Plan Note - Deborah Rodrigues LICSW - 09/01/2017 11:38 AM CDT Associated Problem(s): Health senior care, active care coordination (Resolved 07/27/2018) Longwall Shearer Operator: ERLIN Salas [phone] Care coordination focus: mental health Living situation: Lives with Important notes: mh case management starting documented in this encounter Plan of Treatment Not on filedocumented as of this encounter Visit Diagnoses Diagnosis Health senior care, active care coordinati on - Primary documented in this encounter Care Teams Fan Blade Aligner Relationship Specialty Start Date End Date Gagandeep Hinojosa MD PCP - General 05/17/12 1415 [facility] [place] [address] Vane Zarate Psychiatrist Psychiatry 03/22/12 [facility] Psychotherapist 08/04/17 documented as of this encounter
--- OUTSIDE RECORDS SUMMARY | 2022-02-14 17:05 | XMS_ITS | Encounter Summary ---
:1970 Author Organization [facility] Address [address] [place] [address] Care Team Providers Name Role Phone Gagandeep Hinojosa MD Primary Care Provider Reason for Referral Procedure/Equipment (Routine) - Closed Specialty Diagnoses / Procedures Referred By Contact Refer red To Contact Diagnoses Diabetic ulcer of left midfoot associated with type 2 diabetes mellitus, with muscle involvement without evidence of necrosis (HRC) Gagandeep Hinojosa MD Procedures Walking Boot [address] [place] [address] Referral ID Status Reason Start Date Expiration Date Visits Requ ested Visits Authorized [id number] Closed 08/05/2017 11/04/2018 1 1 Procedure/Equipment (Routine) - Incomplete Specialty Diagnoses / Procedures Referred By Contact Refer red To Contact Diagnoses Left foot pain Diabetic ulcer of left midfoot associated with type 2 diabetes mellitus, with muscle involvement without evidence of necrosis (HRC) Gagandeep Hinojosa MD Procedures XR Foot Lt 2 Views [address] [place] [address] Referral ID Status Reason Start Date Expiration Date Visits V isits Requested Authorized [id number] Incomplete 08/05/2017 11/04/2018 1 1 Reason for Visit Reason Comments EDEMA left lower leg Encounter Details Date Type Department Care Team Description 08/05/2017 Office Visit Gagandeep Storm quiana t pain (Primary Dx); Romario Rubio MD Diabetic ulcer of left midfoot associate d with type 2 diabetes mellitus, with muscle involvement without evidence of necrosis (HRC); [address] [facility] [place] [address] [address] [phone] [place] [address] Social History Tobacco [...] Body Mass Index 30.56 04/05/2017 3:18 PM BLOCK MECHANIC documented in this encounter Progress Notes Gagandeep [...] List Diagnosis Date Noted ??? Tobacco abuse ([facility]) 02/24/2016 ??? Tinea versicolor 07/18/2015 ??? Tobacco use disorder ([facility]) 10/26/2012 ??? Anemia 05/02/2012 Overview Note: Anemia, unspecified ??? Health custodial, active care coordination 03/22/2012 Overview Note: Americanization Teacher: JOSETTE Yip [phone] Care coordination focus: T2DM, financial resources Living situation: lives with spouse Important notes: SSDI, significant insulin resistance, uses Relion insulin, commonly reaches Medicare Coverage Gap See care plan under Chart Review > [facility] Reports > [facility] CARE PLAN REPORT ??? Microalbuminuria 02/04/2012 ??? [place], old ([facility]) 09/16/2011 ??? History of PTCA 09/16/2011 Overview Note: History of PTCA 04/2011 BMS RCA ??? Obesity, Class I, BMI 30-34.9 ([facility]) 09/16/2011 Overview Note: Body mass index is 31.16 kg/(m^2). ??? Hyperlipidemia with target LDL less than 70 ([facility]) 06/08/2011 Overview Note: Hyperlipidemia LDL goal < 70 ??? ASHD (arteriosclerotic heart disease) ([facility]) 05/04/2011 ??? Erectile dysfunction 01/22/2011 Overview Note: side effect Risperdal ??? Type 2 diabetes mellitus, uncontrolled ([facility]) 12/11/2010 Overview Note: Type II or unspecified type diabetes mellitus without mention of complication, uncontrolled ([facility]) ??? Dermatophytosis of body 09/04/2010 Class: Historical Overview Note: Tinea Corporis ??? Coronary atherosclerosis ([facility]) 12/22/2009 Overview Note: LW Modifier: mod RCA, negative nuclear stress test ; CAD ??? Nonspecific abnormal results of liver function study 12/22/2009 Overview Note: Liver Function Tests Abnormal ??? Bipolar I disorder ([facility]) 09/15/2005 Overview Note: LW Onset: [id number] ; Bipolar I Dis FAMILY HISTORY OR [...] FINDINGS: ??2 views were obtained. No ac table mountain fracture or dislocation. No radiographic evidence of [...] (HRC) documented in this encounter Care Teams Telephone Directory Deliverer Relationship Specialty Start Date End Date Gagandeep Hinojosa MD PCP - General 05/17/12 [address] [place] [address] Vane Zarate Psychiatrist Psychiatry 03/22/12 [facility] Mental [facility] Psychotherapist 08/04/17 documented as of this encounter
--- OUTSIDE RECORDS SUMMARY | 2022-02-14 17:05 | XMS_ITS | Encounter Summary ---
:1970 Author Organization [email or web address] Address [address] [place] [address] Care Team Providers Name Role Phone Gagandeep Hinojosa MD Primary Care Provider Reason for Visit Reason Comments [facility] Phone Visit Encounter Details Date Type Department Care Team Description 01/31/2018 Care Coord Phone Judy Luke R N [facility] Phone Visit Medicine 1415 [facility] 1415 [facility] [place] [address] [place] [address] [phone] Social History Tobacco Use Types Packs/Day Years [...] RN - 01/31/2018 12:43 PM CDT RN Sustainability Communicator - Diabetes Follow-Up Current diabetes medication regimen: [...] insulin documented in this encounter Care Teams Field Gauger Relationship Specialty Start Date End Date Gagandeep Hinojosa MD PCP - General 05/17/12 [facility] [place] [address] Vane Zarate Psychiatrsamantha Psychiatry 03/22/12 [facility] Psychotherapist 08/04/17 [facility] Eligibility Consultant 09/13/17 documented as of this encounter
--- OUTSIDE RECORDS SUMMARY | 2022-02-14 17:06 | XMS_ITS | Encounter Summary ---
:1970 Author Organization [employer] Address [address] [place] [address] Care Team Providers Name Role Phone Gagandeep Hinojosa MD Primary Care Provider Reason for Visit Reason Comments Diabetes Encounter Details Date Type Department Care Team Description 02/16/2017 Office Visit Gagandeep Storm Unconfaribao lled type 2 diabetes mellitus with diabetic polyneuropathy, with long-term current use of insulin (HRC) (Primary Dx); Romario Rubio MD Encounter for immunization; [address] [place] 1415 [facility] Diabetic polyneuropathy associated with type 2 diabetes mellitus (HRC); Ave. Ave long-term current use of insulin (HRC); [place] [address] [place] Type 2 diabetes mellitus wit h diabetic polyneuropathy, with long- term current use of insulin (HRC); [phone] Hyperlipidemia, unspecified hyperlipidem ia type; [phone] Tobacco use dis order; (Work) ASHD (arteriosclerotic [...] controlled ICD-10-CM 1. ASHD (arteriosclerotic heart disease) ([facility]) I25.10 Basic Metabolic Panel 2. Encounter for immunization Z23 Influenza (Fluarix or Fluzone 0.5, 3+ yrs) 3. Uncontrolled type 2 diabetes mellitus with diabetic polyneuropathy, with long-term current use ofinsulin ([facility]) E11.42 POCT Glycosylated Hemoglobin (HB A1C) Z79.4 Microalb/Creat Ratio E11.65 4. Diabetic polyneuropathy associated with type 2 diabetes mellitus ([facility]) E11.42 5. supervisor intermediates current use of insulin ([facility]) Z79.4 6. Type 2 diabetes mellitus with diabetic polyneuropathy, with long-term current use of insulin ([facility]) E11.42 Z79.4 7. Hyperlipidemia, unspecified hyperlipidemia type ([facility]) E78.5 Lipid Panel and Direct LDL(If Needed) 8. Tobacco use disorder ([facility]) F17.200 PLAN: 1. Again, his major difficulty [...] (ABNORMAL) Microalb/Creat Ratio (08/15/2017 8:50 AM CDT) [facility] Method Time Signature Microalbumin 150.2 mg/L PN SOFT Urine U Creat Random 113 mg/dL PN SOFT Microalbumin/Crea 132.9 (H) 0.0 - PN SOFT tinine Ratio 30.0 Specimen Anatomical Collection Method Collection Time Receive d Time (Source) Location / / Volume Laterality Urine specimen 08/15/2017 8:50 AM 018 (specimen) CDT 11:33 AM CDT Narrative PN SOFT - 08/15/2017 12:05 PM CDT Performed at [facility], [address] [place] [address] CLIA number [id number] Gagandeep Hinojosa MD LAB_1 Performing Organization Address City/State/ZIP Code Phon e Number PN SOFT [address] [place] [address] [phone] (ABNORMAL) Lipid Panel and Direct LDL(If Needed) (08/15/2017 8:43 AM CDT) [facility] Method Time Signature Cholesterol 102 0 - [...] 08/15/2017 3:34 PM CDT Performed at [facility], [address] [place] [address] CLIA number [id number] Gagandeep Hinojosa MD LAB_1 Performing Organization Address [facility] Phon e Number PN SOFT [address] [place] [address] (ABNORMAL) POCT Glycosylated Hemoglobin (HB A1C) (05/17/2017 1:59 PM VOCATIONAL AUTO BODY INSTRUCTOR) [facility] gist Method Time Signature Glycosolated HGB [...] Volume Laterality 05/17/2017 1:59 PM 8 1:58 VOCATIONAL AUTO BODY INSTRUCTOR PM VOCATIONAL AUTO BODY INSTRUCTOR Narrative PN SOFT - 05/17/2017 2:15 PM VOCATIONAL AUTO BODY INSTRUCTOR Performed at [facility], [address] [place] [address] CLIA number [id number] Gagandeep Hinojosa MD LAB_1 Performing Organization Address [facility] Phon e Number PN SOFT [address] [place] [address] documented in this encounter Visit Diagnoses Diagnosis [...] Coronary atherosclerosis of unspecified type of vessel, port gamble or graft Uncontrolled type 2 diabetes mellitus wi th diabetic polyneuropathy, with long-term current use of insulin Hyperlipidemia, unspecified hyperlipidem ia type (HRC) Uncontrolled type 2 diabetes mellitus wi th diabetic polyneuropathy, with long-term current use of insulin Uncontrolled type 2 diabetes mellitus wi thout complication, without long-term current use of insulin documented in this encounter Care Teams Oracle Hrms Consultant Relationship Specialty Start Date End Date Gagandeep Hinojosa MD PCP - General 05/17/12 14[address] [facility] [place] [address] Vane Zarate Psychiatrist Psychiatry 03/22/12 documented as of this encounter
--- OUTSIDE RECORDS SUMMARY | 2022-02-14 17:06 | XMS_ITS | Encounter Summary ---
:1970 Author Organization [facility] Address [address] [place] [address] Care Team Providers Name Role Phone Gagandeep Hinojosa MD Primary Care Provider Reason for Visit Reason Comments [facility] Phone Visit Encounter Details Date Type Department Care Team Description 05/26/2017 Care Coord Phone Judy Luke R N [facility] Phone Visit Medicine 1415 [facility] 1415 [facility] [place] [address] [place] [address] [phone] Social History Tobacco Use Types Packs/Day Years [...] RN - 05/26/2017 10:20 AM CST RN Sas Programmer Remote - Diabetes Follow-Up Current diabetes medication regimen: [...] with plan of care and follow up. CONDITIONING EQUIPMENT MECHANIC documented in this encounter Plan of Treatment Not on filedocumented as of this encounter Visit Diagnoses Diagnosis Health fdc, active care coordinati on - Primary Uncontrolled type 2 diabetes mellitus wi thout complication, with long-term current use of insulin documented in this encounter Care Teams Drying Unit Felting Machine Operator Relationship Specialty Start Date End Date Gagandeep Hinojosa MD PCP - General 05/17/12 [facility]5 [facility] [place] [address] Vane Zarate Psychiatrist Psychiatry 03/22/12 documented as of this encounter
--- OUTSIDE RECORDS SUMMARY | 2022-02-14 17:06 | XMS_ITS | Encounter Summary ---
:1970 Author Organization [employer] Address [address], [place] [address] Care Team Providers Name Role Phone Gagandeep Hinojosa MD Primary Care Provider Reason for Visit Reason Comments Procedure Left lower extremity EMG Procedure/Equipment (Routine) - Closed Specialty Diagnoses / Procedures Referred By Contact Refer red To Contact Diagnoses Paresthesia of lower limb Gagandeep Hinojosa MD [address] [place] [address] Referral ID Status Reason Start Date Expiration Date Visits Requ ested Visits Authorized [id number] Closed 09/07/2016 12/07/2017 1 1 Encounter Details Date Type Department Care Team Description 10/13/2016 Procedure Visit Verito Mackenzie Procedure (L eft Rehabilitative Ladi Rubio MD lower extremity Medicine [address] [place] [address] Dr EMG) [address] [place] [address] [phone] Social History Tobacco Use Types Packs/Day Years [...] Exam Date: 10/13/2016 Name: Timur Krishnamurthy MR#: [id number] Gender: Male Date of : 1970 Age: [...] in this encounter Care Teams Financial Services Specialist Relationship Specialty Start Date End Date Gaganedep Hinojosa MD PCP - General 05/17/12 [address] [facility] [place] [address] Vane Zarate Psychiatrist Psychiatry 03/22/12 documented as of this encounter
--- OUTSIDE RECORDS SUMMARY | 2022-02-14 17:06 | XMS_ITS | Encounter Summary ---
:1970 Author Organization [facility] Address [address] [place] [address] Care Team Providers Name Role Phone Gagandeep Michaud MD Primary Care Provider Reason for Visit Reason Comments Refill buPROPion (WELLBUTRIN SR) 15 0 MG 12 hour release tablet [Pharmacy Med Name: BUPROPION SR 150MG TABLETS ( 12 H)] Encounter Details Date Type Department Care Team Description 04/05/2017 Refill Gagandeep Storm Refil l (buPROPion Medicine (WELLBUTRIN SR) [address] 12 hour release tablet [place] [address] [place] [address] [Pharmacy Med Name: [phone] (Wo rk) BUPROPION SR 150MG TABLETS ( [...] Provider: GAGANDEEP MICHAUD Ordering User: LEN ROWELL WARE SYSTEMS ANALYST Interface, Out OANDA Query - 04/05/2017 4:16 PM CST buPROPion [...] 80 mm Hg on 04/05/2017 Powered by [employer], Reference: [id number], 04/05/2017 4:16:49 PM SOFTWARE SYSTEMS ANALYST, Pool: MANUEL LANDAILL ([id number]) WARE SYSTEMS ANALYST documented in this encounter Plan of Treatment Not on filedocumented as of this encounter Visit Diagnoses Diagnosis Tobacco use disorder (HRC) Tobacco use disorder documented in this encounter Care Teams Senior Research Engineer Relationship Specialty Start Date End Date Gagandeep Michaud MD PCP - General 05/17/12 [facility]5 [facility] [place] [address] Vane Zarate Psychiatrist Psychiatry 03/22/12 documented as of this encounter
--- OUTSIDE RECORDS SUMMARY | 2022-02-14 17:06 | XMS_ITS | Encounter Summary ---
:1970 Author Organization [employer] Address [address], [place] [address] Care Team Providers Name Role Phone Gagandeep Hinojosa MD Primary Care Provider Encounter Details Date Type Department Care Team Description 05/12/2017 Notes/Orders [facility] [address], Endocrinology MBBS [address] [place] [facility] [address] [facility] [place] [address] [place] [address] [phone] Social History Tobacco Use Types Packs/Day Years [...] 9:11 AM CST patient was admitted to [facility] for suicidal ideation. REINA Barrera TER FLOOR COVERING ASSISTANT documented in this encounter Plan of Treatment Not on filedocumented as of this encounter Visit Diagnoses Not on filedocumented in this encounter Care Teams Corporate Administrator Relationship Specialty Start Date End Date Gagandeep Hinojosa MD PCP - General 05/17/12 1415 [facility] [place] [address] Vane Zarate Psychiatrist Psychiatry 03/22/12 documented as of this encounter
--- OUTSIDE RECORDS SUMMARY | 2022-02-14 17:06 | XMS_ITS | Encounter Summary ---
:1970 Author Organization [employer] Address [address], [place] [address] Care Team Providers Name Role Phone Gagandeep Hinojosa MD Primary Care Provider Reason for Visit Reason Onset Date Comments Refill 11/26/2016 Encounter Details Date Type Department Care Team Description 11/26/2016 Refill [facility] [address] MBBS Refill Endocrinology [address] [place] [address] [place] [address] [phone] Social History Tobacco Use Types Packs/Day Years [...] uncontrolled documented in this encounter Care Teams Racetrack Steward Relationship Specialty Start Date End Date Gagandeep Hinojosa MD PCP - General 05/17/12 1415 [facility] [place] [address] Vane Zarate Psychiatrist Psychiatry 03/22/12 documented as of this encounter
--- OUTSIDE RECORDS SUMMARY | 2022-02-14 17:06 | XMS_ITS | Encounter Summary ---
:1970 Author Organization [facility] Address [address] [place] [address] Care Team Providers Name Role Phone Gagandeep Hinojosa MD Primary Care Provider Reason for Visit Reason Comments SMOKING CESSATION Encounter Details Date Type Department Care Team Description 04/05/2017 Office Visit Gagandeep Storm Tobacco use disorder Romario Rubio MD (Primary Dx) [address] [facility] . [address] [place] [address] Ave [phone] [place], [place] [address] Social History Tobacco Use [...] Comments Blood Pressure 134/80 04/05/2017 3:18 PM ASSOCIATE AUTOMATION ENGINEER Pulse - - Temperature - - Respiratory Rate - - Oxygen Saturation - - Inhaled Oxygen Concentration - - Weight 100.7 kg (222 lb) 04/05/2017 3:18 PM ASSOCIATE AUTOMATION ENGINEER Height 177.8 cm (5' 10) 04/05/2017 3:18 PM ASSOCIATE AUTOMATION ENGINEER Body Mass Index 31.85 04/05/2017 3:18 PM ASSOCIATE AUTOMATION ENGINEER documented in this encounter Progress Notes Gagandeep Hinojosa MD - 04/05/2017 3:30 PM CST ICD-10-CM 1. Tobacco use disorder ([facility]) F17.200 doxycycline monohydrate (ADOXA) 100 MG tablet [...] List Diagnosis Date Noted ??? Tobacco abuse ([facility]) 02/24/2016 ??? Tinea versicolor 07/18/2015 ??? Diabetic eye exam ([facility]) 12/12/2013 Overview Note: Eye exam done at [facility] on 12/12/13. Mild diabetic retinopathy in right eye. ??? Tobacco use disorder ([facility]) 10/26/2012 ??? Anemia 05/02/2012 Overview Note: Anemia, unspecified ??? Health correction, active care coordination 03/22/2012 Overview Note: Security Public Safety Officer: JOSETTE Yip [phone] Care coordination focus: T2DM, financial resources Living situation: lives with spouse Important notes: SSDI, significant insulin resistance, uses Relion insulin, commonly reaches Medicare Coverage Gap See care plan under Chart Review > [facility] Reports > [facility]B [facility] CARE PLAN REPORT ??? Microalbuminuria 02/04/2012 ??? [place], old ([facility]) 09/16/2011 ??? History of PTCA 09/16/2011 Overview Note: History of PTCA 04/2011 BMS RCA ??? Obesity, Class I, BMI 30-34.9 ([facility]) 09/16/2011 Overview Note: Body mass index is 31.16 kg/(m^2). ??? Hyperlipidemia with target LDL less than 70 ([facility]) 06/08/2011 Overview Note: Hyperlipidemia LDL goal < 70 ??? ASHD (arteriosclerotic heart disease) ([facility]) 05/04/2011 ??? Erectile dysfunction 01/22/2011 Overview Note: side effect Risperdal ??? Type 2 diabetes mellitus, uncontrolled ([facility]) 12/11/2010 Overview Note: Type II or unspecified type diabetes mellitus without mention of complication, uncontrolled ([facility]) ??? Dermatophytosis of body 09/04/2010 Class: Historical Overview Note: Tinea Corporis ??? Coronary atherosclerosis ([facility]) 12/22/2009 Overview Note: LW Modifier: mod RCA, negative nuclear stress test ; CAD ??? Nonspecific abnormal results of liver function study 12/22/2009 Overview Note: Liver Function Tests Abnormal ??? Bipolar I disorder ([facility]) 09/15/2005 Overview Note: LW Onset: [id number] ; Bipolar I Dis FAMILY HISTORY OR [...] its administration and expectations Follow-up: 3-4 weeks CIATE AUTOMATION ENGINEER documented in this encounter Plan of Treatment Not on filedocumented as of this encounter Visit Diagnoses Diagnosis Tobacco use disorder (HRC) - Primary Tobacco use disorder documented in this encounter Care Teams Superintendent Meters Relationship Specialty Start Date End Date Gagandeep Hinojosa MD PCP - General 05/17/12 [facility]5 [facility] [place] [address] Vane Zarate Psychiatrist Psychiatry 03/22/12 documented as of this encounter
--- OUTSIDE RECORDS SUMMARY | 2022-02-14 17:06 | XMS_ITS | Encounter Summary ---
:1970 Author Organization [employer] Address [address] [place] [address] Care Team Providers Name Role Phone Gagandeep Michaud MD Primary Care Provider Reason for Visit Reason Onset Date Comments Refill 07/22/2017 Insulin Syringe-Need le U-100 (INSULIN SYRINGE 31G X 5/16) 31G X 5/16 1 ML Encounter Details Date Type Department Care Team Description 07/22/2017 Refill [facility] [place] [facility] Gagandeep Michaud, Refil l (Insulin Medicine Syringe-Needle U-[address] (INSULIN SYRINGE 31[place] [address] [place] [address] 5/16) 31G X 5/16 1 ML) [phone] (Wo rk) Social History Tobacco Use Types [...] MICHAUD Ordering User: ABBIE MITCHELL Interface, Out Datalink Prov Query - 07/22/2017 2:39 PM CDT [...] visit: 08/15/2017 (in Family Practice) Powered by Way[employer], Reference: [id number], 07/22/2017 2:39:54 PM CDT, Pool: MANUEL REFILL ([id number]) documented in this encounter Plan of Treatment Not on filedocumented as of this encounter Visit Diagnoses Diagnosis Uncontrolled type 2 diabetes mellitus wi thout complication, with long-term current use of insulin documented in this encounter Care Teams Metalworking Specialist Relationship Specialty Start Date End Date Gagandeep Michaud MD PCP - General 05/17/12 [address] [facility] [place] [address] Vane Zarate Psychiatrist Psychiatry 03/22/12 documented as of this encounter
--- OUTSIDE RECORDS SUMMARY | 2022-02-14 17:06 | XMS_ITS | Encounter Summary ---
:1970 Author Organization [employer] Address [address] [place] [address] Care Team Providers Name Role Phone Gagandeep Michaud MD Primary Care Provider Encounter Details Date Type Department Care Team Description 12/03/2016 Refill Order [place] [facility] Gagandeep Michaud MD [address] [facility] . [address] [facility] [place] [address] [place] [address] [phone] (Wo rk) Social History Tobacco Use Types [...] - NEXT LAB APPOINTMENT: None Powered by [employer], Reference: [id number], 12/03/2016 2:46:31 PM CDT, Pool: MANUEL MOORE ([id number]) documented in this encounter Plan of Treatment Not on filedocumented as of this encounter Visit Diagnoses Diagnosis Encounter for long-term (current) use of medications - Primary Encounter for long-term (current) use of other medications documented in this encounter Care Teams Personnel Associate Relationship Specialty Start Date End Date Gagandeep Michaud MD PCP - General 05/17/12 [address] [place] [address] Vane Zarate Psychiatrist Psychiatry 03/22/12 documented as of this encounter
--- OUTSIDE RECORDS SUMMARY | 2022-02-14 17:06 | XMS_ITS | Encounter Summary ---
:1970 Author Organization [employer] Address [address] [place] [address] Care Team Providers Name Role Phone Gagandeep Hinojosa MD Primary Care Provider Reason for Visit Reason Comments Disease Registry Encounter Details Date Type Department Care Team Description 05/19/2017 Notes/Orders [facility] Gagandeep Hinojosa MD [address] [facility] . [address] [facility] [place] [address] [place] [address] [phone] (Wo rk) Social History Tobacco Use Types [...] filedocumented in this encounter Care Teams Rag Shredder Relationship Specialty Start Date End Date Gagandeep Hinojosa MD PCP - General 05/17/12 [address] [facility] [place] [address] Vane Zarate Psychiatrist Psychiatry 03/22/12 documented as of this encounter
--- OUTSIDE RECORDS SUMMARY | 2022-02-14 17:06 | XMS_ITS | Encounter Summary ---
:1970 Author Organization [facility] [facility] Address [address] [place] [address] Care Team Providers Name Role Phone Gagandeep Michaud MD Primary Care Provider Reason for Visit Reason Onset Date Comments Refill 04/13/2017 insulin regular (NOV VONDA R) 100 UNIT/ML injection Encounter Details Date Type Department Care Team Description 04/13/2017 Refill [place] Gagandeep Michaud, Refrose mary l (insulin regular Medicine MD (NOVOLIN R) 100 UNIT/ML [address] injection) [place] [address] [place] [id number] (Wo rk) Social History Tobacco Use Types [...] Provider: GAGANDEEP MICHAUD Ordering User: ABBIE MITCHELL ONATOR Interface, Out [employer] Query - 04/13/2017 1:09 PM CST insulin [...] : 11.8 % on 02/16/2017 Powered by [employer], Reference: [id number], 04/13/2017 1:09:42 PM CARBONATOR, Pool: MANUEL REFILL ([id number]) ONATOR documented in this encounter Plan of Treatment Not on filedocumented as of this encounter Visit Diagnoses Diagnosis Uncontrolled type 2 diabetes mellitus wi thout complication, with long-term current use of insulin documented in this encounter Care Teams Animal Rescuer Relationship Specialty Start Date End Date Gagandeep Michaud MD PCP - General 05/17/12 [address] [facility] [place] [address] Vane Zarate Psychiatrist Psychiatry 03/22/12 documented as of this encounter
--- OUTSIDE RECORDS SUMMARY | 2022-02-14 17:06 | XMS_ITS | Encounter Summary ---
:1970 Author Organization [employer] Address [address] [place] [address] Care Team Providers Name Role Phone Gagandeep Hinojosa MD Primary Care Provider Encounter Details Date Type Department Care Team Description 05/17/2017 Lab Visit [facility] Uncontrolled type [address] mellitus with diabetic [place] [address] polyneuropathy, with [phone] long-term curre nt use of insulin (HRC) [...] 2 Results for this HEMOGLOBIN (HB A1C) REGULATORY ATTORNEY diabetes mellitus pro cedure are in with diabetic the results polyneuropathy, with section . long-term current use of insulin (HRC) EXTRA SERUM SEPARATOR STAT 05/17/2017 1:49 PM Results for this TUBE (YELLOW) REGULATORY ATTORNEY procedure are in the results section. documented in this encounter Results (ABNORMAL) POCT Glycosylated Hemoglobin (HB A1C) (05/17/2017 1:59 PM REGULATORY ATTORNEY) [facility] gist Method Time Signature Glycosolated HGB 9.1 [...] Volume Laterality 05/17/2017 1:59 PM 8 1:58 REGULATORY ATTORNEY PM REGULATORY ATTORNEY Narrative PN SOFT - 05/17/2017 2:15 PM REGULATORY ATTORNEY Performed at [facility], [address] [place] [address] CLIA number [id number] Gagandeep Hinojosa MD LAB_1 Performing Organization Address [facility] Phon e Number PN SOFT [address] [place] [address] Extra Serum Separator Tube (yellow) (05/17/2017 1:49 PM REGULATORY ATTORNEY) athologist Signature Extra SST Top Drawn PN SOFT Drawn Specimen (Source) Anatomical Location Collection Method / Collectio n Time Received Time / Laterality Volume Narrative PN SOFT - 05/17/2017 1:49 PM REGULATORY ATTORNEY Performed at [facility], [address] [place] [address] CLIA number [id number] Gagandeep Hinojosa MD LAB_1 Performing Organization Address City/[facility] Phon e Number PN SOFT [address] [place] [address] documented in this encounter Visit Diagnoses Diagnosis Uncontrolled type 2 diabetes mellitus wi th diabetic polyneuropathy, with long-term current use of insulin documented in this encounter Care Teams Rug Cleaning Supervisor Relationship Specialty Start Date End Date Gagandeep Hinojosa MD PCP - General 05/17/[address] [place] [address] Vane Zarate Psychiatrist Psychiatry 03/22/12 documented as of this encounter
--- OUTSIDE RECORDS SUMMARY | 2022-02-14 17:06 | XMS_ITS | Encounter Summary ---
:1970 Author Organization [employer] Address [address] [place] [address] Care Team Providers Name Role Phone Gagandeep Hinojosa MD Primary Care Provider Reason for Visit Reason Onset Date Comments Patient Preference Scheduling 09/07/2016 Encounter Details Date Type Department Care Team Description 09/07/2016 Telephone Verito Mackenzie Patient Preference Rehabilitative Medic nicholas Rubio MD Scheduling [address] [place] [address] [place], [place] [phone] (Wo rk) Social History Tobacco Use Types [...] filedocumented in this encounter Care Teams Sewer Contractor Relationship Specialty Start Date End Date aGgandeep Hinojosa MD PCP - General 05/17/12 [facility], [place] [address] Vane Zarate Psychiatrist Psychiatry 03/22/12 documented as of this encounter
--- OUTSIDE RECORDS SUMMARY | 2022-02-14 17:06 | XMS_ITS | Encounter Summary ---
:1970 Author Organization [employer] Address [address] [place] [address] Care Team Providers Name Role Phone Gagandeep Hinojosa MD Primary Care Provider Reason for Referral Consult/Transfer Care (Routine) - Closed Specialty Diagnoses / Procedures Referred By Contact Refer red To Contact Diagnoses Uncontrolled type 2 diabetes mellitus with complication, with long-term current use of insulin Joce Foster MD [address] [facility] [place] [address] Referral ID Status Reason Start Date Expiration Date Visits Requ ested Visits Authorized [id number] Closed 05/17/2017 08/16/2018 1 1 Scheduling Instructions If scheduling assistance is needed, namrata dorman inquire with the medical office staff upon exiting your appointment or contact the ordering clinic for recommended locations. This recommended service/s may not be co tri by your insurance coverage. To find out your specific benefit coverage, please c all the number on your insurance card. 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 ASHD (arteriosclerotic heart disease); [place] [address] [place] Bipolar I disorder (HRC); [phone] Tobacco use disorder Social History Tobacco Use [...] Comments Blood Pressure 140/86 05/17/2017 2:29 PM ARCHITECTURAL DESIGN PROFESSOR Pulse 106 05/17/2017 2:29 PM ARCHITECTURAL DESIGN PROFESSOR Temperature - - Respiratory Rate - - Oxygen Saturation - - Inhaled Oxygen Concentration - - Weight 105.2 kg (232 lb) 05/17/2017 2:28 PM ARCHITECTURAL DESIGN PROFESSOR Height - - Body Mass Index 33.29 04/05/2017 3:18 PM ARCHITECTURAL DESIGN PROFESSOR documented in this encounter Progress Notes Joce Foster MD - 05/17/2017 12:00 PM CST NAME: SHARLENE VARNER MR#: [id number] CSN: [id number] AUTHENTICATING CLINICIAN: Joce Foster MD CONFIRM #: [id number] LOC: 1202 CLINIC PROGRESS NOTE DATE OF [...] 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 MEDS: Reviewed and updated in [...] future if interested. MJW:MEDWendy C: CONFIRM #: [id number] ITECTURAL DESIGN PROFESSOR documented in this encounter Plan of Treatment Not on filedocumented as of this encounter Visit Diagnoses Diagnosis Uncontrolled type 2 diabetes mellitus wi th complication, with long-term current use of insulin - Primary Essential hypertension (HRC) Unspecified essential hypertension Hyperlipidemia LDL goal < 70 Other and unspecified hyperlipidemia ASHD (arteriosclerotic heart disease) (H RC) Coronary atherosclerosis of unspecified type of vessel, the [place] or graft Bipolar I disorder (HRC) Bipolar I disorder, most recent episode (or current) unspecified Tobacco use disorder (HRC) Tobacco use disorder documented in this encounter Care Teams Director Telemetry Relationship Specialty Start Date End Date Gagandeep Hinojosa MD PCP - General 05/17/12 [facility] [place] [address] Vane Zarate Psychiatrist Psychiatry 03/22/12 documented as of this encounter
--- OUTSIDE RECORDS SUMMARY | 2022-02-14 17:06 | XMS_ITS | Encounter Summary ---
:1970 Author Organization [employer] Address [address] [place] [address] Care Team Providers Name Role Phone Gagandeep Hinojosa MD Primary Care Provider Encounter Details Date Type Department Care Team Description 02/16/2017 Lab Visit [facility] Uncontrolled type 2 diabetes mellitus without complication, with long-term current use of insulin (HRC) [E11.65,Z79.4]; [address] [facility] . Hyperlipidemia, unspecified hyperlipidemia type (HRC) [E78.5] [place] [address] Social History Tobacco Use Types Packs/Day Years [...] in NEEDED) hyperlipidemia type the resu lts ([facility]) [E78.5] section. EXTRA SERUM STAT 02/16/2017 10:51 Results for this SEPARATOR TUBE AM CDT procedure are in (YELLOW) the results section. documented in this encounter Results (ABNORMAL) Microalb/Creat Ratio (02/16/2017 11:01 AM CDT) [facility] Effective Measure Method Time Signature Microalbumin 124.6 mg/L PN SOFT Urine U Creat Random 78 mg/dL PN SOFT Microalbumin/Crea 159.7 (H) 0.0 - PN SOFT tinine Ratio 30.0 Specimen Anatomical Collection Method Collection Time Receive d Time (Source) Location / / Volume Laterality Urine specimen 02/16/2017 11:01 7 2:41 (specimen) AM CDT PM CDT Narrative PN SOFT - 02/16/2017 3:37 PM CDT Performed at [facility], [facility] [address] [place] [address] CLIA number [id number] Gagandeep Hinojosa MD LAB_1 Performing Organization Address City/State/ZIP Code Phon e Number PN SOFT [address] [place] [address] (ABNORMAL) Lipid Panel and Direct LDL(If Needed) (02/16/2017 10:54 AM CDT) [facility] Effective Measure Method Time Signature Cholesterol 179 0 - [...] - 02/16/2017 3:18 PM CDT Performed at [facility], [address] [place] [address] CLIA number [id number] Gagandeep Hinojosa MD LAB_1 Performing Organization Address [facility] Phon e Number PN SOFT [address] [place] [address] (ABNORMAL) POCT Glycosylated Hemoglobin (HB A1C) (02/16/2017 [...] - 02/16/2017 11:05 AM CDT Performed at [facility], [address] [place] [address] CLIA number [id number] Gagandeep Hinojosa MD LAB_1 Performing Organization Address [facility] Phon e Number PN SOFT [address] [place] [address] Extra Serum Separator Tube (yellow) (02/16/2017 10:51 AM CDT) athologist Signature Extra SST Top Drawn PN SOFT Drawn Specimen (Source) Anatomical Location Collection Method / Collectio n Time Received Time / Laterality Volume Narrative PN SOFT - 02/16/2017 10:51 AM CDT Performed at [facility], [address] [place] [address] CLIA number [id number] Gagandeep Hinojosa MD LAB_1 Performing Organization Address [facility] Phon e Number PN SOFT [address] [place] [address] documented in this encounter Visit Diagnoses Diagnosis Uncontrolled type 2 diabetes mellitus wi thout complication, with long-term current use of insulin (HRC) [E11.65,Z79.4] Hyperlipidemia, unspecified hyperlipidem ia type (HRC) [E78.5] documented in this encounter Care Teams Commercial Decorator Relationship Specialty Start Date End Date Gagandeep Hinojosa MD PCP - General 05/17/12 [facility] [place] [id number] Vane Zarate Psychiatrsamantha Psychiatry 03/22/12 documented as of this encounter
--- OUTSIDE RECORDS SUMMARY | 2022-02-14 17:06 | XMS_ITS | Encounter Summary ---
:1970 Author Organization [employer] Address [address] [place] [address] Care Team Providers Name Role Phone Gagandeep Hinojosa MD Primary Care Provider Encounter Details Date Type Department Care Team Description 04/29/2017 Lab Visit [facility] Need for prophylactic [address] [place] [address] Social History Tobacco Use Types Packs/Day Years [...] 11:40 Need for Results for this AM REGULATORY AFFAIRS CONSULTANT prophylactic procedure are i n chemotherapy the results section. COMPLETE BLOOD Routine 04/29/2017 11:40 Need for Results f or this COUNT-W/DIFF AM REGULATORY AFFAIRS CONSULTANT prophylactic procedure are i n chemotherapy the results section. DIFFERENTIAL Routine 04/29/2017 11:40 Results for this AM REGULATORY AFFAIRS CONSULTANT procedure are i n the results section. VALPROIC ACID Routine 04/29/2017 11:40 Need for Results fo r this (DEPAKENE) AM REGULATORY AFFAIRS CONSULTANT prophylactic procedure are i n chemotherapy the results section. AMMONIA Routine 04/29/2017 11:40 Need for Results for this AM REGULATORY AFFAIRS CONSULTANT prophylactic procedure are i n chemotherapy the results section. HGB A1C Routine 04/29/2017 11:40 Need for Results for this AM REGULATORY AFFAIRS CONSULTANT prophylactic procedure are i n chemotherapy the results section. ALT (SGPT) Routine 04/29/2017 11:40 Need for Results for this AM REGULATORY AFFAIRS CONSULTANT prophylactic procedure are i n chemotherapy the results section. AST Routine 04/29/2017 11:40 Need for Results for this AM REGULATORY AFFAIRS CONSULTANT prophylactic procedure are i n chemotherapy the results section. SODIUM Routine 04/29/2017 11:40 Need for Results for this AM REGULATORY AFFAIRS CONSULTANT prophylactic procedure are i n chemotherapy the results section. POTASSIUM Routine 04/29/2017 11:40 Need for Results for this AM REGULATORY AFFAIRS CONSULTANT prophylactic procedure are i n chemotherapy the results section. CALL LIST QUESTIONS Routine 04/29/2017 11:33 Need for Resu lts for this AM REGULATORY AFFAIRS CONSULTANT prophylactic procedure are i n chemotherapy the results section. documented in this encounter Results (ABNORMAL) Differential (04/29/2017 11:40 AM REGULATORY AFFAIRS CONSULTANT) Analysis Performed At Patho logist Time Signature [...] / Volume Laterality 04/29/2017 11:40 04/29/2017 AM REGULATORY AFFAIRS CONSULTANT 11:40 AM REGULATORY AFFAIRS CONSULTANT Narrative PN SOFT - 04/29/2017 11:44 AM REGULATORY AFFAIRS CONSULTANT Performed at [facility], [address] [place], [place] [address] CLIA number [id number] .Results faxed to [phone], 04/30/2017,07:05, by GIOVANY.Results faxed to ?? Dr. Vane Zarate ?? [phone], 04/29/2017,11:46, by [facility] Vane Zarate MD LAB_1 Performing Organization Address City/State/ZIP Code Phon e Number PN SOFT [address] [place] [address] Ammonia (04/29/2017 11:40 AM REGULATORY AFFAIRS CONSULTANT) athologist Signature Ammonia, Blood 30 0 - 44 PN SOFT umol/L Specimen Anatomical Collection Method Collection Time Receive d Time (Source) Location / / Volume Laterality 04/29/2017 11:40 04/29/2017 2:56 AM REGULATORY AFFAIRS CONSULTANT PM REGULATORY AFFAIRS CONSULTANT Narrative PN SOFT - 04/29/2017 4:09 PM REGULATORY AFFAIRS CONSULTANT Performed at [facility], [address] [id number] CLIA number [id number] .Results faxed to [phone], 04/30/2017,07:05, by GIOVANY.Results faxed to ?? Dr. Vane Zarate ?? [phone], 04/29/2017,11:46, by [facility] Joey Zarate MD LAB_1 Performing Organization Address [facility] Phon e Number PN SOFT [address] [place] [address] Potassium (04/29/2017 11:40 AM REGULATORY AFFAIRS CONSULTANT) athologist Signature Potassium 5.0 3.5 - 5.2 PN SOFT mmol/L Specimen Anatomical Collection Method Collection Time Receive d Time (Source) Location / / Volume Laterality 04/29/2017 11:40 04/29/2017 2:30 AM REGULATORY AFFAIRS CONSULTANT PM REGULATORY AFFAIRS CONSULTANT Narrative PN SOFT - 04/29/2017 3:23 PM REGULATORY AFFAIRS CONSULTANT Performed at [facility], [address] [place] [address] CLIA number [id number] .Results faxed to [phone], 04/30/2017,07:05, by GIOVANY.Results faxed to ?? Dr. Vane Zarate ?? [phone], 04/29/2017,11:46, by [facility] Joey Zarate MD LAB_1 Performing Organization Address [facility] Phon e Number PN SOFT [address] [place] [address] (ABNORMAL) Sodium (04/29/2017 11:40 AM REGULATORY AFFAIRS CONSULTANT) athologist Signature Sodium 135 (L) 136 - 145 PN SOFT mmol/L Specimen Anatomical Collection Method Collection Time Receive d Time (Source) Location / / Volume Laterality 04/29/2017 11:40 04/29/2017 2:30 AM REGULATORY AFFAIRS CONSULTANT PM REGULATORY AFFAIRS CONSULTANT Narrative PN SOFT - 04/29/2017 3:23 PM REGULATORY AFFAIRS CONSULTANT Performed at [facility], [address] [place] [address] CLIA number [id number] .Results faxed to [phone], 04/30/2017,07:05, by GIOVANY.Results faxed to ?? Dr. Vane Zarate ?? [phone], 04/29/2017,11:46, by [facility] Joey Zarate MD LAB_1 Performing Organization Address [facility] Phon e Number PN SOFT [address] [place] [address] Valproic Acid (Depakene) (04/29/2017 11:40 AM REGULATORY AFFAIRS CONSULTANT) Analysis Performed At [facility] Time Signature Date Last Dose apr 29 2017 PN SOFT Valproic Acid Time Last Dose 8:0 PN SOFT Valproic Acid Valproic 51 50 - 100 PN SOFT Acid/Depakene ug/mL (Valp) Specimen Anatomical Collection Method Collection Time Receive d Time (Source) Location / / Volume Laterality 04/29/2017 11:40 04/29/2017 3:01 AM REGULATORY AFFAIRS CONSULTANT PM REGULATORY AFFAIRS CONSULTANT Narrative PN SOFT - 04/29/2017 3:24 PM REGULATORY AFFAIRS CONSULTANT Performed at [facility], [address] [place] [address] CLIA number [id number] .Results faxed to [phone], 04/30/2017,07:05, by GIOVANY.Results faxed to ?? Dr. Vane Zarate ?? [phone], 04/29/2017,11:46, by [facility] Joey Zarate MD LAB_1 Performing Organization Address [facility] Phon e Number PN SOFT [address] [place] [address] (ABNORMAL) Creatinine / GFR (04/29/2017 11:40 AM REGULATORY AFFAIRS CONSULTANT) Analysis Performed At Patho logist Time Signature [...] Volume Laterality 04/29/2017 11:40 04/29/2017 2:30 AM REGULATORY AFFAIRS CONSULTANT PM REGULATORY AFFAIRS CONSULTANT Narrative PN SOFT - 04/29/2017 3:23 PM REGULATORY AFFAIRS CONSULTANT Performed at [facility], [address] [place], [place] [address] CLIA number [id number] .Results faxed to [phone], 04/30/2017,07:05, by GIOVANY.Results faxed to ?? Dr. Vane Zarate ?? [phone], 04/29/2017,11:46, by [facility] Joey Zarate MD LAB_1 Performing Organization Address City/State/ZIP Code Phon e Number PN SOFT [address] [place] [address] (ABNORMAL) Hgb A1c (04/29/2017 11:40 AM REGULATORY AFFAIRS CONSULTANT) athologist Signature HGB A1C 9.7 (H) 4.0 - 5.6 % PN SOFT Specimen Anatomical Collection Method Collection Time Receive d Time (Source) Location / / Volume Laterality 04/29/2017 11:40 04/29/2017 3:01 AM REGULATORY AFFAIRS CONSULTANT PM REGULATORY AFFAIRS CONSULTANT Narrative PN SOFT - 04/29/2017 10:26 PM REGULATORY AFFAIRS CONSULTANT Performed at [facility], [facility] [place] [address] CLIA number [id number] .Results faxed to [phone], 04/30/2017,07:05, by GIOVANY.Results faxed to ?? Dr. Vane Zarate ?? [phone], 04/29/2017,11:46, by [facility] Joey Zarate MD LAB_1 Performing Organization Address [facility] Phon e Number PN SOFT [address] [place] [address] Alanine Aminotransferase - ALT (SGPT) (04/29/2017 11:40 AM REGULATORY AFFAIRS CONSULTANT) [facility] gist Method Time Signature Alanine 17 9 - 55 PN SOFT Aminotransferase U/L Specimen Anatomical Collection Method Collection Time Receive d Time (Source) Location / / Volume Laterality 04/29/2017 11:40 04/29/2017 2:30 AM REGULATORY AFFAIRS CONSULTANT PM REGULATORY AFFAIRS CONSULTANT Narrative PN SOFT - 04/29/2017 3:23 PM REGULATORY AFFAIRS CONSULTANT Performed at [facility], [address] [place] [address] CLIA number [id number] .Results faxed to [phone], 04/30/2017,07:05, by GIOVANY.Results faxed to ?? Dr. Vane Zarate ?? [phone], 04/29/2017,11:46, by [facility] Joey Zarate MD LAB_1 Performing Organization Address [facility] Phon e Number PN SOFT [address] [place] [address] Aspartate Aminotransferase - AST (04/29/2017 11:40 AM REGULATORY AFFAIRS CONSULTANT) [facility] Method Time Signature Aspartate 21 10 - 40 PN SOFT Aminotransferase U/L Specimen Anatomical Collection Method Collection Time Receive d Time (Source) Location / / Volume Laterality 04/29/2017 11:40 04/29/2017 2:30 AM REGULATORY AFFAIRS CONSULTANT PM REGULATORY AFFAIRS CONSULTANT Narrative PN SOFT - 04/29/2017 3:23 PM REGULATORY AFFAIRS CONSULTANT Performed at [facility], [facility] [address] [place] [address] CLIA number [id number] .Results faxed to [phone], 04/30/2017,07:05, by GIOVANY.Results faxed to ?? Dr. Vane Zarate ?? [phone], 04/29/2017,11:46, by [facility] Joey Zarate MD LAB_1 Performing Organization Address City/[facility] Code Phon e Number PN SOFT [address] [place] [address] CBC - Complete Blood Count-W/Diff (04/29/2017 11:40 AM REGULATORY AFFAIRS CONSULTANT) athologist Signature White Blood Cell 8.8 3.8 [...] / Volume Laterality 04/29/2017 11:40 04/29/2017 AM REGULATORY AFFAIRS CONSULTANT 11:40 AM REGULATORY AFFAIRS CONSULTANT Narrative PN SOFT - 04/29/2017 11:44 AM REGULATORY AFFAIRS CONSULTANT Performed at [facility], [address] [place] [address] CLIA number [id number] .Results faxed to [phone], 04/30/2017,07:05, by GIOVANY.Results faxed to ?? Dr. Vane Zarate ?? [phone], 04/29/2017,11:46, by [facility] Joey Zarate MD LAB_1 Performing Organization Address City/[facility] Phon e Number PN SOFT [address] [place] [address] Call List Questions (04/29/2017 11:33 AM REGULATORY AFFAIRS CONSULTANT) athologist Signature Call Back Done PN SOFT Documented Specimen (Source) Anatomical Collection Method Collection Time Re ceived Time Location / / Volume Laterality 04/29/2017 11:33 AM REGULATORY AFFAIRS CONSULTANT Narrative PN SOFT - 04/29/2017 11:33 AM REGULATORY AFFAIRS CONSULTANT [place] [address] CLIA number [id number] Joey Zarate MD LAB_1 Performing Organization Address City/State/ZIP Code Phon e Number PN SOFT [address] [place] [address] documented in this encounter Visit Diagnoses Diagnosis Need for prophylactic chemotherapy Need for other prophylactic chemotherapy documented in this encounter Care Teams Sheet Rock Finisher Relationship Specialty Start Date End Date Gagandeep Hinojosa MD PCP - General 05/17/12 [address] [place] [address] Vane Zarate Psychiatrsamantha Psychiatry 03/22/12 documented as of this encounter
--- OUTSIDE RECORDS SUMMARY | 2022-02-14 17:06 | XMS_ITS | Encounter Summary ---
:1970 Author Organization [facility] Address [address] [place] [address] Care Team Providers Name Role Phone Gagandeep Hinojosa MD Primary Care Provider Reason for Visit Reason Comments RESULTS, TEST emg Encounter Details Date Type Department Care Team Description 10/22/2016 Office Visit Gagandeep Storm Sensory neuropathy Romario Rubio MD (Primary Dx) [address] [facility] . [address] [place] [address] [address] [phone] [place], [place] [address] Social History Tobacco Use [...] - 10/22/2016 2:00 PM CDT Vitamin D 5553-3857 IU daily Vitamin B 6 50 mg dailt Folic 1 mg daily Multi-vitamin documented in this encounter Progress Notes Gagandeep Hinojosa MD - 10/22/2016 2:00 PM CDT ICD-10-CM 1. Sensory neuropathy ([facility]) G62.9 left lower leg sensory CHIEF [...] List Diagnosis Date Noted ??? Tobacco abuse ([facility]) 02/24/2016 ??? Tinea versicolor 07/18/2015 ??? Diabetic eye exam ([facility]) 12/12/2013 Overview Note: Eye exam done at [facility] on 12/12/13. Mild diabetic retinopathy in right eye. ??? Tobacco use disorder ([facility]) 10/26/2012 ??? ACS (acute coronary syndrome) ([facility]) 10/25/2012 ??? Anemia 05/02/2012 ??? Health long-term, active care coordination 03/22/2012 Overview Note: Timber Girdler: JOSETTE Yip [phone] Care coordination focus: T2DM, financial resources Living situation: lives with spouse Important notes: SSDI, significant insulin resistance, uses Relion insulin, commonly reaches Medicare Coverage Gap See care plan under Chart Review > [facility] Reports > [facility] CARE PLAN REPORT ??? Microalbuminuria 02/04/2012 ??? TX, old ([facility]) 09/16/2011 ??? History of PTCA 09/16/2011 ??? Obesity, Class I, BMI 30-34.9 ([facility]) 09/16/2011 Overview Note: Body mass index is 31.16 kg/(m^2). ??? Hyperlipidemia with target LDL less than 70 ([facility]) 06/08/2011 ??? ASHD (arteriosclerotic heart disease) ([facility]) 05/04/2011 ??? Erectile dysfunction 01/22/2011 Overview Note: side effect Risperdal ??? Type 2 diabetes mellitus, uncontrolled ([facility]) 12/11/2010 ??? Dermatophytosis of body 09/04/2010 Class: Historical ??? Coronary atherosclerosis ([facility]) 12/22/2009 Overview Note: LW Modifier: mod RCA, negative nuclear stress test ??? Nonspecific abnormal results of liver function study 12/22/2009 ??? Bipolar I disorder ([facility]) 09/15/2005 Overview Note: LW Onset: FAMILY [...] werenormal. ASSESSMENT /PLAN ICD-10-CM 1. Sensory neuropathy ([facility]) G62.9 left lower leg sensory Patient Instructions Vitamin D 8724-9066 IU daily Vitamin B 6 50 mg [...] neuropathy documented in this encounter Care Teams Regrind Mill Operator Relationship Specialty Start Date End Date Gagandeep Hinojosa MD PCP - General 05/17/12 [address] [facility] [place] [address] Vane Zarate Psychiatrist Psychiatry 03/22/12 documented as of this encounter
--- OUTSIDE RECORDS SUMMARY | 2022-02-14 17:06 | XMS_ITS | Encounter Summary ---
:1970 Author Organization [employer] Address [address] [address] Care Team Providers Name Role Phone Gagandeep Hinojosa MD Primary Care Provider Reason for Referral (Routine) - Closed Specialty Diagnoses / Procedures Referred By Contact Refer red To Contact Diagnoses Dyslipidemia (HRC) Que Lal MD Procedures Outreach Nuclear Study [address] [facility] [address] [place] [address] Referral ID Status Reason Start Date Expiration Date Visits Requ ested Visits Authorized [id number] Closed 01/04/2017 04/05/2018 1 1 Encounter Details Date Type Department Care Team Description 12/31/2016 Hospital Encounter Heart & Vascular Dysli pidemia (Primary Center Nuclear Dx) Cardiology [address] [facility]. [place], [place] [id number] Social History Tobacco Use Types Packs/Day Years [...] LDL less than 70 ([facility]) Charcoal 260 Take 1 Tab by [...] SOPNIndications: Controlled type 2 diabetes with neuropathy ([facility]) insulin pen needle (BD Inject subcutaneously [...] unspecified vessel or lesion type, unspecified whether [place] or transplanted heart (HRC), Essential hypertension (HR) [...] NM CARDIAC MPI STRESS TEST ( (Order [id number]) STRESS TEST PHARMACOLOGICAL ( (Order [id number]) Original Order Diagnosis: Dyslipidemia [E78.5 (ICD-10-CM)] Coronary artery disease, angina presence unspecified, unspecified vessel or lesion type, unspecifiedwhether [place] or transplanted heart [I25.10 (ICD-10-CM)] Chest pain, rule out acute myocardial infarction [R07.9 (ICD-10-CM)] Dyslipidemia [E78.5 (ICD-10-CM)] Coronary artery disease, angina presence unspecified, unspecified vessel or lesion type, unspecifiedwhether [place] or transplanted heart [I25.10 (ICD-10-CM)] Chest pain, rule out acute myocardial infarction [R07.9 (ICD-10-CM)] Reading Provider(s) Alexei Pratt MBBS PACs images are not viewable in [employer]. See text report below. 2017 12:32 [...] Patient Information Patient Name Sex Timur Krishnamurthy ([id number]) Male 1970 documented in this encounter Plan [...] NM CARDIAC MPI STRESS TEST (Acce ssion [id number]) (Order [id number]) STRESS TEST PHARMACOLOGICAL ( (Order [id number]) Original Order Diagnosis: Dyslipidemia [E78.5 (ICD-10-CM)] Coronary artery disease, angina presence unspecified, unspecified vessel or lesion type, unspecified wheth er [place] or transplanted heart [I25.10 (ICD-10-CM)] Chest pain, rule out acute myocardial in farction [R07.9 (ICD-10-CM)] Dyslipidemia [E78.5 (ICD-10-CM)] Coronary artery disease, angina presence unspecified, unspecified vessel or lesion type, unspecified wheth er [place] or transplanted heart [I25.10 (ICD-10-CM)] Chest pain, rule out acute myocardial in farction [R07.9 (ICD-10-CM)] ?? Reading Provider(s) ?? Alexei Pratt MBBS PACs images are not viewable in [employer]. See text report below. ?? 2017 12:32 PM - lAexei Pratt MBBS Narrative & Impression ?? STRESS NUCLEAR PERFUSION SCAN - 7 INDICATIONS: Coronary artery disease wit h history of inferior wall myocardial infarction. Dyslipidemia . Rest stress single isotope SPECT imaging was performed with Novariantiscan walk protocol. BASELINE ELECTROCARDIOGRAM: Normal sinus rhythm. [...] This result is not viewable by the hilarai ent. Patient Information ?? Patient Name Sex Timur Krishnamurthy ([id number]) Male 1970 Procedure Note Deborah Mathews - 12/31/2016 11:59 PM CDT Results NM CARDIAC MPI STRESS TEST (Acce ssion [id number]) (Order [id number]) STRESS TEST PHARMACOLOGICAL ( (Order [id number]) Original Order Diagnosis: Dyslipidemia [E78.5 (ICD-10-CM)] Coronary artery disease, angina presence unspecified, unspecified vessel or lesion type, unspecified whether [place] or transplanted heart [I25.10 (ICD-10-CM)] Chest pain, rule out acute myocardial in farction [R07.9 (ICD-10-CM)] Dyslipidemia [E78.5 (ICD-10-CM)] Coronary artery disease, angina presence unspecified, unspecified vessel or lesion type, unspecified whether [place] or transplanted heart [I25.10 (ICD-10-CM)] Chest pain, rule out acute myocardial in farction [R07.9 (ICD-10-CM)] Reading Provider(s) Alexei Pratt MBBS PACs images are not viewable in [employer]. See text report below. 2017 12:32 [...] Patient Information Patient Name Sex Timur Schulz ([id number]) Male 1970 Que Lal MD PN CARDIAC SERVICES ORDERABL ES Performing Organization Address City/State/ZIP Code Phon e Number POCT PN POCT documented in this encounter Visit Diagnoses Diagnosis Dyslipidemia (HRC) - Primary Other and unspecified hyperlipidemia documented in this encounter Care Teams Flower Grower Relationship Specialty Start Date End Date Gagandeep Hinojosa MD PCP - General 05/17/12 [facility] [place] [address] Vane Zarate Psychiatrist Psychiatry 03/22/12 documented as of this encounter
--- OUTSIDE RECORDS SUMMARY | 2022-02-14 17:06 | XMS_ITS | Encounter Summary ---
:1970 Author Organization [facility] Address [address], [place] [address] Care Team Providers Name Role Phone Gagandeep Hinojosa MD Primary Care Provider Reason for Visit Reason Comments [facility] Phone Visit HRR Encounter Details Date Type Department Care Team Description 05/10/2017 Care Coord Phone Reji Turner HC Phone Visit (HRR) Medicine Franck RN [address] [place] [address] [place], [place] [phone] Social History Tobacco Use Types Packs/Day Years [...] need for renewed [facility] involvement. Thank you. ICAL APPEALS REVIEWER documented in this encounter Plan of Treatment Not on filedocumented as of this encounter Visit Diagnoses Not on filedocumented in this encounter Care Teams Corporate Accountant Relationship Specialty Start Date End Date Gagandeep Hinojosa MD PCP - General 05/17/12 [address] [facility] [place] [address] Vane Zarate Psychiatrist Psychiatry 03/22/12 documented as of this encounter
--- OUTSIDE RECORDS SUMMARY | 2022-02-14 17:06 | XMS_ITS | Encounter Summary ---
:1970 Author Organization [employer] Address [address], [place] [address] Care Team Providers Name Role Phone Gagandeep Hinojosa MD Primary Care Provider Reason for Visit Reason Comments COUGH Encounter Details Date Type Department Care Team Description 04/04/2017 Nurse Triage [facility] Gagandeep Hinojosa MD COUGH 14[address] [facility] . [address] [place] [address] [place] [address] [phone] (Wo rk) Social History Tobacco Use Types [...] (SAME) Protocols used: INFECTION ON ANTIBIOTIC FOLLOW-UP [id number] Patient calling and transferred to [facility] via ER line. States he was seen at [facility] over the weekend for his cough and [...] 04/05/2017 3:30 PM Gagandeep Hinojosa MD [facility] MAN[facility]EL OW GLASS INSTALLER documented in this encounter Plan of Treatment Not on filedocumented as of this encounter Visit Diagnoses Not on filedocumented in this encounter Care Teams Ice Cream Freezer Helper Relationship Specialty Start Date End Date Gagandeep Hinojosa MD PCP - General 05/17/12 [facility]5 [facility] [place] [address] Vane Zarate Psychiatrist Psychiatry 03/22/12 documented as of this encounter
--- OUTSIDE RECORDS SUMMARY | 2022-02-14 17:06 | XMS_ITS | Encounter Summary ---
:1970 Author Organization [employer] Address [address] [place] [address] Care Team Providers Name Role Phone Gagandeep Hinojosa MD Primary Care Provider Reason for Visit Reason Comments HC Face To Face Visit Encounter Details Date Type Department Care Team Description 07/19/2017 Care Coord Judy Luke RN [facility] Face To Face Office Visit Medicine [address] [facility] Visit [address] [place] [address] Social History Tobacco Use Types Packs/Day Years [...] RN - 07/19/2017 9:00 AM CDT RN Consular Officer Visit Pt: Timur Krishnamurthy Referred by: [...] Mental Health Rustam continues to see his [facility] therapist every Tuesday and notes he [...] safety, but just hasn't been following through. 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 [...] penitentiary, active care coordinati on - Primary Uncontrolled type 2 diabetes mellitus wi th microalbuminuria, with long-term current use of insulin Bipolar I disorder (HRC) Bipolar I disorder, most recent episode (or current) unspecified documented in this encounter Care Teams Loan Servicing Officer Relationship Specialty Start Date End Date Gagandeep Hniojosa MD PCP - General 05/17/12 [facility]5 [facility] [place] [address] Vane Zarate Psychiatrist Psychiatry 03/22/12 documented as of this encounter
--- OUTSIDE RECORDS SUMMARY | 2022-02-14 17:06 | XMS_ITS | Encounter Summary ---
:1970 Author Organization [facility] Address [address] [place] [address] Care Team Providers Name Role Phone Gagandeep Michaud MD Primary Care Provider Reason for Visit Reason Comments Refill NOVOLIN R 100 UNIT/ML inject ion [Pharmacy Med Name: NOVOLIN R 100UNIT/ML INJ] Encounter Details Date Type Department Care Team Description 12/03/2016 Refill [place] [facility] Gagandeep Michaud, Refil l (NOVOLIN R 100 Medicine MD UNIT/ML injection [address] [Pharmacy Med Name: KATIANA Vigil [address] [place]NA VIGIL [address] NOVOLIN R 100UNIT/ML [phone] (Wo rk) INJ]) Social History Tobacco Use [...] (Sent to [facility]) Powered by [employer], Reference: [id number], 12/03/2016 2:46:31 PM CDT, Pool: MANUEL MOORE ([id number]) documented in this encounter Plan of Treatment Not on filedocumented as of this encounter Visit Diagnoses Diagnosis Uncontrolled type 2 diabetes mellitus wi thout complication, with long-term current use of insulin documented in this encounter Care Teams Cadet Deck Relationship Specialty Start Date End Date Gagandeep Michaud MD PCP - General 05/17/12 1415 [facility] KATIANA Gerber [address] Vane Zarate Psychiatrsamantha Psychiatry 03/22/12 documented as of this encounter
--- OUTSIDE RECORDS SUMMARY | 2022-02-14 17:06 | XMS_ITS | Encounter Summary ---
:1970 Author Organization [employer] Address [address], [place] [address] Care Team Providers Name Role Phone Gagandeep Hinojosa MD Primary Care Provider Reason for Visit Reason Onset Date Comments RESULTS, TEST 10/21/2016 Encounter Details Date Type Department Care Team Description 10/21/2016 Telephone [facility] Gagandeep Hinojosa MD RESULTS, TEST 1415 [facility] . 1415 [place] [address] [place] [address] [phone] (Wo rk) Social History Tobacco Use Types [...] When and where was test done? 10/13/16 [place] Who ordered the test? Gagandeep Hinojosa MD documented in this encounter Plan of Treatment Not on filedocumented as of this encounter Visit Diagnoses Not on filedocumented in this encounter Care Teams Manager Of Information Relationship Specialty Start Date End Date Gagandeep Hinojosa MD PCP - General 05/17/[address] [facility] KATIANA Gerber [address] Vane Zarate Psychiatrist Psychiatry 03/22/12 documented as of this encounter
--- OUTSIDE RECORDS SUMMARY | 2022-02-14 17:06 | XMS_ITS | Encounter Summary ---
:1970 Author Organization [email or web address] Address [address] [place] [address] Care Team Providers Name Role Phone Gagandeep Hinojosa MD Primary Care Provider Encounter Details Date Type Department Care Team Description 04/29/2017 Notes/Orders [facility] Vane Zarate, Need for prophylactic [address] Bonds MD chemotherapy ([place] [address]) [phone] [address] [place], [place] [address] Social History Tobacco Use Types Packs/Day Years [...] this encounter Results Ammonia (04/29/2017 11:40 AM INCISING MACHINE OPERATOR) athologist Signature Ammonia, Blood 30 0 - 44 PN SOFT umol/L Specimen Anatomical Collection Method Collection Time Receive d Time (Source) Location / / Volume Laterality 04/29/2017 11:40 04/29/2017 2:56 AM INCISING MACHINE OPERATOR PM INCISING MACHINE OPERATOR Narrative PN SOFT - 04/29/2017 4:09 PM INCISING MACHINE OPERATOR Performed at [facility], [facility] [place] [address] CLIA number [id number] .Results faxed to [phone], 04/30/2017,07:05, by GIOVANY.Results faxed to ?? Dr. Vane Zarate ?? [phone], 04/29/2017,11:46, by [facility] Joey Zarate MD LAB_1 Performing Organization Address [facility] Phon e Number PN SOFT [address] [place] [address] Potassium (04/29/2017 11:40 AM INCISING MACHINE OPERATOR) P athologist Signature Potassium 5.0 3.5 - 5.2 PN SOFT mmol/L Specimen Anatomical Collection Method Collection Time Receive d Time (Source) Location / / Volume Laterality 04/29/2017 11:40 04/29/2017 2:30 AM INCISING MACHINE OPERATOR PM INCISING MACHINE OPERATOR Narrative PN SOFT - 04/29/2017 3:23 PM INCISING MACHINE OPERATOR Performed at [facility], [address] [place] [address] CLIA number [id number] .Results faxed to [phone], 04/30/2017,07:05, by GIOVANY.Results faxed to ?? Dr. Vane Zarate ?? [phone], 04/29/2017,11:46, by [facility] Joey Zarate MD LAB_1 Performing Organization Address [facility] Phon e Number PN SOFT [address] [place] [address] (ABNORMAL) Sodium (04/29/2017 11:40 AM INCISING MACHINE OPERATOR) P athologist Signature Sodium 135 (L) 136 - 145 PN SOFT mmol/L Specimen Anatomical Collection Method Collection Time Receive d Time (Source) Location / / Volume Laterality 04/29/2017 11:40 04/29/2017 2:30 AM INCISING MACHINE OPERATOR PM INCISING MACHINE OPERATOR Narrative PN SOFT - 04/29/2017 3:23 PM INCISING MACHINE OPERATOR Performed at [facility], [address] [place] [address] CLIA number [id number] .Results faxed to [phone], 04/30/2017,07:05, by GIOVANY.Results faxed to ?? Dr. Vane Zarate ?? [phone], 04/29/2017,11:46, by [facility] Joey Zarate MD LAB_1 Performing Organization Address [facility] Phon e Number PN SOFT [address] [place] [address] [phone] Valproic Acid (Depakene) (04/29/2017 11:40 AM INCISING MACHINE OPERATOR) Analysis [facility] Time Signature Date Last Dose apr 29 2017 PN SOFT Valproic Acid Time Last Dose 8:0 PN SOFT Valproic Acid Valproic 51 50 - 100 PN SOFT Acid/Depakene ug/mL (Valp) Specimen Anatomical Collection Method Collection Time Receive d Time (Source) Location / / Volume Laterality 04/29/2017 11:40 04/29/2017 3:01 AM INCISING MACHINE OPERATOR PM INCISING MACHINE OPERATOR Narrative PN SOFT - 04/29/2017 3:24 PM INCISING MACHINE OPERATOR Performed at [address] [address] CLIA number [id number] .Results faxed to [phone], 04/30/2017,07:05, by GIOVANY.Results faxed to ?? Dr. Vane Zarate ?? [phone], 04/29/2017,11:46, by [facility] Joey Zarate MD LAB_1 Performing Organization Address [facility] Phon e Number PN SOFT [address] [place] [address] [phone] (ABNORMAL) Creatinine / GFR (04/29/2017 11:40 AM INCISING MACHINE OPERATOR) Analysis Performed At [facility] Time Signature Creatinine 0.70 (L) 0.73 [...] Volume Laterality 04/29/2017 11:40 04/29/2017 2:30 AM INCISING MACHINE OPERATOR PM INCISING MACHINE OPERATOR Narrative PN SOFT - 04/29/2017 3:23 PM INCISING MACHINE OPERATOR Performed at [facility], [address] [place] [id number] CLIA number [id number] .Results faxed to [phone], 04/30/2017,07:05, by GIOVANY.Results faxed to ?? Dr. Vane Zarate ?? [phone], 04/29/2017,11:46, by [facility] Joey Zarate MD LAB_1 Performing Organization Address [facility] Code Phon e Number PN SOFT [address] [place] [phone] (ABNORMAL) Hgb A1c (04/29/2017 11:40 AM INCISING MACHINE OPERATOR) P athologist Signature HGB A1C 9.7 (H) 4.0 - 5.6 % PN SOFT Specimen Anatomical Collection Method Collection Time Receive d Time (Source) Location / / Volume Laterality 04/29/2017 11:40 04/29/2017 3:01 AM INCISING MACHINE OPERATOR PM INCISING MACHINE OPERATOR Narrative PN SOFT - 04/29/2017 10:26 PM INCISING MACHINE OPERATOR Performed at [facility], [address] [place] [address] CLIA number [id number] .Results faxed to [phone], 04/30/2017,07:05, by GIOVANY.Results faxed to ?? Dr. Vane Zarate ?? [phone], 04/29/2017,11:46, by [facility] Joey Zarate MD LAB_1 Performing Organization Address [facility] Phon e Number PN SOFT [address] [place] [address] Alanine Aminotransferase - ALT (SGPT) (04/29/2017 11:40 AM INCISING MACHINE OPERATOR) Patholo gist Method Time Signature Alanine 17 9 - 55 PN SOFT Aminotransferase U/L Specimen Anatomical Collection Method Collection Time Receive d Time (Source) Location / / Volume Laterality 04/29/2017 11:40 04/29/2017 2:30 AM INCISING MACHINE OPERATOR PM INCISING MACHINE OPERATOR Narrative PN SOFT - 04/29/2017 3:23 PM INCISING MACHINE OPERATOR Performed at [facility], [address] [place] [address] CLIA number [id number] .Results faxed to [phone], 04/30/2017,07:05, by GIOVANY.Results faxed to ?? Dr. Vane Zarate ?? [phone], 04/29/2017,11:46, by [facility] Joey Zarate MD LAB_1 Performing Organization Address [facility] Code Phon e Number PN SOFT [address] [place] [address] Aspartate Aminotransferase - AST (04/29/2017 11:40 AM INCISING MACHINE OPERATOR) Patholo gist Method Time Signature Aspartate 21 10 - 40 PN SOFT Aminotransferase U/L Specimen Anatomical Collection Method Collection Time Receive d Time (Source) Location / / Volume Laterality 04/29/2017 11:40 04/29/2017 2:30 AM INCISING MACHINE OPERATOR PM INCISING MACHINE OPERATOR Narrative PN SOFT - 04/29/2017 3:23 PM INCISING MACHINE OPERATOR [place] [address] CLIA number [id number] .Results faxed to [phone], 04/30/2017,07:05, by GIOVANY.Results faxed to ?? Dr. Vane Zarate ?? [phone], 04/29/2017,11:46, by [facility] Joey Zarate MD LAB_1 Performing Organization Address [facility] Phon e Number PN SOFT [address] [place] [address] CBC - Complete Blood Count-W/Diff (04/29/2017 11:40 AM INCISING MACHINE OPERATOR) P athologist Signature White Blood [...] / Volume Laterality 04/29/2017 11:40 04/29/2017 AM INCISING MACHINE OPERATOR 11:40 AM INCISING MACHINE OPERATOR Narrative PN SOFT - 04/29/2017 11:44 AM INCISING MACHINE OPERATOR Performed at [facility], [address] [place] [address] CLIA number [id number] .Results faxed to [phone], 04/30/2017,07:05, by GIOVANY.Results faxed to ?? Dr. Vane Zarate ?? [phone], 04/29/2017,11:46, by [facility] Joey Zarate MD LAB_1 Performing Organization Address City/[facility] Phon e Number PN SOFT [address] [place] [address] Call List Questions (04/29/2017 11:33 AM INCISING MACHINE OPERATOR) athologist Signature Call Back Done PN SOFT Documented Specimen (Source) Anatomical Collection Method Collection Time Re ceived Time Location / / Volume Laterality 04/29/2017 11:33 AM INCISING MACHINE OPERATOR Narrative PN SOFT - 04/29/2017 11:33 AM INCISING MACHINE OPERATOR Performed at [facility], [address] [place] [address] CLIA number [id number] Joey Zarate MD LAB_1 Performing Organization Address City/[facility] Phon e Number PN SOFT [address] [place] [address] documented in this encounter Visit Diagnoses Diagnosis Need for prophylactic chemotherapy - Sandra dorsey Need for other prophylactic chemotherapy Need for prophylactic chemotherapy Need for other prophylactic chemotherapy documented in this encounter Care Teams Rod Buster Helper Relationship Specialty Start Date End Date Gagandeep Hinojosa MD PCP - General 05/17/[address] [place] [address] Vane Zarate Psychiatrist Psychiatry 03/22/12 documented as of this encounter
--- OUTSIDE RECORDS SUMMARY | 2022-02-14 17:06 | XMS_ITS | Encounter Summary ---
:1970 Author Organization [employer] Address [address] [place] [address] Care Team Providers Name Role Phone Gagandeep Michaud MD Primary Care Provider Reason for Visit Reason Comments Refill atorvastatin (LIPITOR) 80 MG tablet [Pharmacy Med Name: ATORVASTATIN 80 MG TABLET] Encounter Details Date Type Department Care Team Description 07/28/2017 Refill Gagandeep Storm, Refil l (atorvastatin Medicine MD (LIPITOR) 80 MG tablet [address] 14[address] [facility] [Pharmacy Med Name: [place] [address] [place] [address] ATORVASTATIN 80 MG [phone] (Wo rk) TABLET]) Social History Tobacco Use [...] TABLET BY MOUTH EVERY DAY Interface, Out [employer] Prov Query - 07/28/2017 9:39 AM CDT [...] visit: 08/15/2017 (in Family Practice) Powered by [employer], Reference: [id number], 07/28/2017 9:39:43 AM CDT, Pool: MANUELNoni LANDAILL ([id number]) documented in this encounter Plan of Treatment Not on filedocumented as of this encounter Visit Diagnoses Diagnosis ASHD (arteriosclerotic heart disease) ([facility]) Coronary atherosclerosis of unspecified type of vessel, o[place]inkie or graft Hyperlipidemia LDL goal < 70 Other and unspecified hyperlipidemia documented in this encounter Care Teams Ocular Care Aide Relationship Specialty Start Date End Date Gagandeep Michaud MD PCP - General 05/17/[address] [place] [address] [place] [address] Vane Zarate Psychiatrist Psychiatry 03/22/12 documented as of this encounter
--- OUTSIDE RECORDS SUMMARY | 2022-02-14 17:06 | XMS_ITS | Encounter Summary ---
:1970 Author Organization [employer] Address [address], [place] [address] Care Team Providers Name Role Phone Gagandeep Hinojosa MD Primary Care Provider Reason for Visit Reason Comments Diabetes Encounter Details Date Type Department Care Team Description 09/15/2016 Office Visit [place] [facility] Alcantar Tomás franco type 2 diabetes mellitus without complication, without long-term current use of insulin (HRC) (Primary Dx); Endocrinology M, MBYOGESH Bipolar I disorder ([facility]) [address] [address] [facility] [phone] [place], [place] [address] Social History Tobacco Use Types Packs/Day Years [...] Alcantar, REINA - 09/15/2016 2:[address] [facility] Department of Endocrinology, Diabetes and Metabolism [...] takes lisinopril 10 mg daily BP today [id number]. He takes atorvastatin 80 mg daily, he has history of CAD s/p NC and PCI in 2011. ROS: A 3 [...] lisinopril. #3 Dyslipidemia: continue atorvastatin. REINA Barrera Background Investigator documented in this encounter Plan of Treatment [...] unspecified documented in this encounter Care Teams Beater Room Helper Relationship Specialty Start Date End Date Gagandeep Hinojosa MD PCP - General 05/17/12 1415 KAT[place] Hernandez [address] Vane Zarate Psychiatrist Psychiatry 03/22/12 documented as of this encounter
--- OUTSIDE RECORDS SUMMARY | 2022-02-14 17:06 | XMS_ITS | Encounter Summary ---
:1970 Author Organization [employer] Address [address] [place] [address] Care Team Providers Name Role Phone Gagandeep Hinojosa MD Primary Care Provider Reason for Visit Reason Comments SLEEP PROBLEM--ED Medication Problems Encounter Details Date Type Department Care Team Description 04/28/2017 Nurse Triage Gagandeep Storm SLEEP AK OBLEM--ED; Romario Rubio MD Medication Problems [address] [place] [address] Ave [phone] [place], [place] [address] Social History Tobacco Use Types [...] daily living) Protocols used: ANXIETY AND PANIC [id number], BIPOLAR DISORDER (MANIC DEPRESSION)-ADULT-AH Spoke to patient. [...] AM Gagandeep Hinojosa MD [facility] [place] [employer] Vivienne Gifford - 04/28/2017 10:55 AM CST Pt calling to speak to a nurse about concerns with sleeping problems, pt States recently started WELLBUTRIN SR And could be contributing to concerns., please assist. [employer] documented in this encounter Plan of Treatment Not on filedocumented as of this encounter Visit Diagnoses Not on filedocumented in this encounter Care Teams Windows Systems Architect Relationship Specialty Start Date End Date Gagandeep Hinojosa MD PCP - General 05/17/12 1415 [facility] KATIANA Gerber [id number] Vane Zarate Psychiatrsamantha Psychiatry 03/22/12 documented as of this encounter
--- OUTSIDE RECORDS SUMMARY | 2022-02-14 17:06 | XMS_ITS | Encounter Summary ---
:1970 Author Organization [email or web address] Address [address], [place] [address] Care Team Providers Name Role Phone Gagandepe Hinojosa MD Primary Care Provider Reason for Visit Reason Comments MEDICATION REACTION Encounter Details Date Type Department Care Team Description 04/26/2017 Nurse Triage [facility] Gagandeep Hinojosa, MEDIC ATION REACTION Medicine 1415 [facility] . 1415 [facility] [place] [address] [place] [address] [phone] (Wo rk) Social History Tobacco Use Types [...] Pt informed ok to try the gum. NE SERVICE MANAGER Gagandeep Hinojosa MD - 04/26/2017 4:04 PM CST Please call pt. OK to try Nicorette gum NE SERVICE MANAGER Brielle Meza RN - 04/26/2017 3:41 PM [...] to answer question Protocols used: MEDICATION QUESTION [id number] Pt asking if he can use Nicotine Gum or patches as well as the Wellbutrin he is taking? Has had 12 days of not smoking until he bought cigarettes this morning. Has had no side effects from the Wellbutrin, aside from some blunting of his emotions. NE SERVICE MANAGER Pamela Neves - 04/26/2017 3:14 PM CST [...] iscausing or if the nicotine gum caused? NE SERVICE MANAGER documented in this encounter Plan of Treatment Not on filedocumented as of this encounter Visit Diagnoses Not on filedocumented in this encounter Care Teams Under Trimmer Relationship Specialty Start Date End Date Gagandeep Hinojosa MD PCP - General 05/17/12 [facility] KATIANA Gerber [address] Vane Zarate Psychiatrist Psychiatry 03/22/12 documented as of this encounter
--- OUTSIDE RECORDS SUMMARY | 2022-02-14 17:06 | XMS_ITS | Encounter Summary ---
:1970 Author Organization [employer] Address [address] [place] [address] Care Team Providers Name Role Phone Gagandeep Hinojosa MD Primary Care Provider Reason for Visit Reason Comments SKIN,DRY on hands Encounter Details Date Type Department Care Team Description 06/03/2017 Office Visit [facility] Gagandeep Hinojosa Dermatit is (Primary Medicine FMD Dx) 1415 [facility] . [address] [place] [address] Ave [phone] [place], [place] [address] Social History Tobacco Use [...] Comments Blood Pressure 122/84 06/03/2017 9:56 AM COMMERCIAL FOOD INSTRUCTOR Pulse - - Temperature - - Respiratory Rate - - Oxygen Saturation - - Inhaled Oxygen Concentration - - Weight 101.2 kg (223 lb) 06/03/2017 9:56 AM COMMERCIAL FOOD INSTRUCTOR Height - - Body Mass Index 32 04/05/2017 3:18 PM COMMERCIAL FOOD INSTRUCTOR documented in this encounter Progress Notes Gagandeep [...] List Diagnosis Date Noted ??? Tobacco abuse ([facility]) 02/24/2016 ??? Tinea versicolor 07/18/2015 ??? Tobacco use disorder ([facility]) 10/26/2012 ??? Anemia 05/02/2012 Overview Note: Anemia, unspecified ??? Health senior living, active care coordination 03/22/2012 Overview Note: Local Government Legislator: JOSETTE Yip [phone] Care coordination focus: T2DM, financial resources Living situation: lives with spouse Important notes: SSDI, significant insulin resistance, uses Relion insulin, commonly reaches Medicare Coverage Gap See care plan under Chart Review > [facility] Reports > AMB [facility] CARE PLAN REPORT ??? Microalbuminuria 02/04/2012 ??? NM, old ([facility]) 09/16/2011 ??? History of PTCA 09/16/2011 Overview Note: History of PTCA 04/2011 BMS RCA ??? Obesity, Class I, BMI 30-34.9 ([facility]) 09/16/2011 Overview Note: Body mass index is 31.16 kg/(m^2). ??? Hyperlipidemia with target LDL less than 70 ([facility]) 06/08/2011 Overview Note: Hyperlipidemia LDL goal < 70 ??? ASHD (arteriosclerotic heart disease) ([facility]) 05/04/2011 ??? Erectile dysfunction 01/22/2011 Overview Note: side effect Risperdal ??? Type 2 diabetes mellitus, uncontrolled ([facility]) 12/11/2010 Overview Note: Type II or unspecified type diabetes mellitus without mention of complication, uncontrolled ([facility]) ??? Dermatophytosis of body 09/04/2010 Class: Historical Overview Note: Tinea Corporis ??? Coronary atherosclerosis ([facility]) 12/22/2009 Overview Note: LW Modifier: mod RCA, negative nuclear stress test ; CAD ??? Nonspecific abnormal results of liver function study 12/22/2009 Overview Note: Liver Function Tests Abnormal ??? Bipolar I disorder ([facility]) 09/15/2005 Overview Note: LW Onset: ; [...] ofVaseline or Eucerin. Follow-up: If not improved ERCIAL FOOD INSTRUCTOR documented in this encounter Plan of Treatment Not on filedocumented as of this encounter Visit Diagnoses Diagnosis Dermatitis - Primary Contact dermatitis and other eczema, due to unspecified cause documented in this encounter Care Teams Veneer Trimmer Relationship Specialty Start Date End Date Gagandeep Hinojosa MD PCP - General 05/17/[address] [place], [place] [address]K[place] [address] Vane Zarate Psychiatrist Psychiatry 03/22/12 documented as of this encounter
--- OUTSIDE RECORDS SUMMARY | 2022-02-14 17:06 | XMS_ITS | Encounter Summary ---
:1970 Author Organization [employer] Address [address] [place] [address] Care Team Providers Name Role Phone Gagandeep Hinojosa MD Primary Care Provider Reason for Visit Reason Comments HC Face To Face Visit Encounter Details Date Type Department Care Team Description 06/06/2017 Care Coord Judy Luke RN [facility] Face To Face Office Visit Medicine 1415 [facility] Visit [address] [place] [address] Social History Tobacco Use Types Packs/Day Years [...] RN - 06/06/2017 1:00 PM CST RN Obstetric Anaesthetist Visit Pt: Timur Krishnamurthy Referred by: Gagandeep [...] supplemental insurance and pays the remaining 20% [id number], using his spouse's HSA. I highly recommended [...] DM complications. Using the Synopsis tab in [employer], I reviewed Rustam's A1c results since his [...] consumed. I stressed the importance of eatinga automatic line set up mechanic lunch because he is not taking any insulin before the meal. Rustam states he can't start the day without a bagel, therefore I recommended he pair the bagel with a protein to help satisfy him lo nger, such as peanut butter, an egg, or cottage cheese. For lunch, Rustam could look to Russian yogurt,a piece of fruit, or a salad [...] time. Previously, he was walking at the [facility] and states he would like [...] reports he is working with a telephonic family coach on smoking cessation. Rustam is very [...] Therefore, I suggested Rustam talk with his family coach about postponing his quit date until [...] A1c is at goal. I agreed. Since uRstam typically has Mondays off from work, we [...] and soda consumption. Continue to work with family coach to decrease the number of cigarettes smoked per day. Follow up scheduled on 06/20/17, bring readings. Rustam to call if symptoms of hypoglycemia or readings < 70 mg/dL. Rustam verbalized understanding and agreed with plan of care and follow up. PLATE LAYER documented in this encounter Plan of Treatment Not on filedocumented as of this encounter Visit Diagnoses Diagnosis Health long term, active care coordinati on - Primary Uncontrolled type 2 diabetes mellitus wi th hyperglycemia, with long-term current use of insulin (HRC) documented in this encounter Care Teams Lunchroom Food Service Supervisor Relationship Specialty Start Date End Date Gagandeep Hinojosa MD PCP - General 1/23/[address] [facility] [place] [address] Vane Zarate Psychiatrist Psychiatry 03/22/12 documented as of this encounter
--- OUTSIDE RECORDS SUMMARY | 2022-02-14 17:06 | XMS_ITS | Encounter Summary ---
:1970 Author Organization [employer] Address [address] [place] [address] Care Team Providers Name Role Phone Gagandeep Hinojosa MD Primary Care Provider Reason for Visit Reason Comments HC Face To Face Visit Encounter Details Date Type Department Care Team Description 06/20/2017 Care Coord Judy Luke RN [facility] Face To Face Office Visit Medicine [address] [facility] Visit [address] [place] [address] Social History Tobacco Use Types Packs/Day Years [...] RN - 06/20/2017 1:00 PM CST RN Staff Analyst Visit Pt: Timur Krishnamurthy Referred by: [...] of 8:00-4:00, 3 days a week, in [place]. I reminded Rustam that he needs hayley [...] supplemental insurance and pays the remaining 20% [id number], using his spouse's HSA. I previously recommended [...] he is periodically walking at the [facility] 2-3 times a week. He wants to do more, but has struggled. I reminded Rustam of the importance of physical activity with glucose control. Smoking Cessation Rustam smells strongly of cigarette smoke again. He reports he continues to work with a telephonic rhythmic gymnastics coach on smoking cessation. He is happy [...] choices per meal. Continue to work with rhythmic gymnastics coach to decrease the number of cigarettes smoked per day. Research supplemental insurance coverage with spouse's HR. Follow up scheduled on 07/12/17, bring readings. Rustam to call if symptoms of hypoglycemia or readings < 70 mg/dL. Rustam verbalized understanding and agreed with plan of care and follow up. AN MAN documented in this encounter Plan of Treatment Not on filedocumented as of this encounter Visit Diagnoses Diagnosis Health chcf, active care coordinati on - Primary Uncontrolled type 2 diabetes mellitus wi th hyperglycemia, with long-term current use of insulin (HRC) Bipolar I disorder (HRC) Bipolar I disorder, most recent episode (or current) unspecified documented in this encounter Care Teams Unit Controller Relationship Specialty Start Date End Date Gagandeep Hinojosa MD PCP - General 05/17/12 1415 [place] [address] Vane Zarate Psychiatrist Psychiatry 03/22/12 documented as of this encounter
--- OUTSIDE RECORDS SUMMARY | 2022-02-14 17:07 | XMS_ITS | Encounter Summary ---
:1970 Author Organization [employer] Address [address] [place] [address] Care Team Providers Name Role Phone Gagandeep Hinojosa MD Primary Care Provider Reason for Visit Reason Onset Date Comments [facility] Phone Visit 06/24/2016 Encounter Details Date Type Department Care Team Description 06/24/2016 Care Coord Phone [facility] Deborah Rodrigues, [facility] Phone Visit [facility] 1415 [facility] . 1415 [place] [address] [place] [address] [phone] Social History Tobacco Use Types Packs/Day Years [...] Deborah Rodrigues, [facility] - 06/24/2016 3:00 PM CST Farmworker [employer] - Phone Call Contact with: Rustam Reason [...] on Tuesday and would still like an [facility] phone call on Tuesday. Denied any other concerns at this time and will call if he needs anything. Shared plan: -[facility] phone follow-up 06/29. Pt verbalized understanding and agreed with plan of care and follow up. GER ONCOLOGY documented in this encounter Plan of Treatment Not on filedocumented as of this encounter Visit Diagnoses Diagnosis Health penitentiary, active care coordinati on - Primary documented in this encounter Care Teams Account Manager Trainee Relationship Specialty Start Date End Date Gagandeep Hinojosa MD PCP - General 05/17/[address] [place] [address] [place] [address] Vane Zarate Psychiatrist Psychiatry 03/22/12 documented as of this encounter
--- OUTSIDE RECORDS SUMMARY | 2022-02-14 17:07 | XMS_ITS | Encounter Summary ---
:1970 Author Organization [employer] [facility] Address [address] [place] [address] Care Team Providers Name Role Phone Gagandeep Hinojosa MD Primary Care Provider Reason for Visit Reason Onset Date Comments [facility] Phone Visit 07/13/2016 Encounter Details Date Type Department Care Team Description 07/13/2016 Care Coord Phone [place] [facility] Phone Visit Medicine 1415 [facility] 1415 [facility] [place] [address] [place] [address] [phone] Social History Tobacco Use Types Packs/Day Years [...] RN - 07/13/2016 12:57 PM CDT RN Tank House Operator - Diabetes Follow-Up Current diabetes medication [...] the [facility]. He prefers to stay in [place]. Therefore, I recommended Rustam inform the skein winder that Dr Hinojosa will refer him to [...] (HRC) documented in this encounter Care Teams Raker Buffing Wheel Relationship Specialty Start Date End Date Gagandeep Hinojosa MD PCP - General 05/17/12 [address] [place] [address] Vane Zarate Psychiatrist Psychiatry 03/22/12 documented as of this encounter
--- OUTSIDE RECORDS SUMMARY | 2022-02-14 17:07 | XMS_ITS | Encounter Summary ---
:1970 Author Organization [employer] Address [address] [place] [address] Care Team Providers Name Role Phone Gagandeep Michaud MD Primary Care Provider Reason for Visit Reason Onset Date Comments Medication Request 04/02/2016 divalproex (DEPAKOTE ) 500 MG enteric coated tablet Encounter Details Date Type Department Care Team Description 04/02/2016 Telephone [place] [facility] Gagandeep Michaud, Medic ation Request Medicine (divalproex (DEPAKOTE) [address] 500 MG enteric coated [place] [address] [place] [address] tablet) [phone] (Wo rk) Social History Tobacco Use Types [...] today, request sent to PCP to address LIFT NAILER Cristal Vilchis - 04/02/2016 2:00 PM CST Pt is requesting to discuss if Dr. Michaud would be willing to refill medication. Pt states he willbe out of medication on 04/03/16. LIFT NAILER Interface, Out Surescripts Prov Query - 04/02/2016 [...] Acid (serum): Taken on 11/04/2015 Powered by [facility], Reference: [id number], 04/02/2016 12:15:01 PM TOP LIFT NAILER, Pool: MANUEL REFILL ([id number]) LIFT NAILER Clair Simpson - 04/02/2016 12:13 PM CST Pt is out of Rx, and doctor out for the week LIFT NAILER documented in this encounter Plan of Treatment Not on filedocumented as of this encounter Visit Diagnoses Not on filedocumented in this encounter Care Teams Supervisor Vendor Quality Relationship Specialty Start Date End Date Gagandeep iMchaud MD PCP - General 05/17/12 [facility] [id number] Vane Zarate Psychiatrist Psychiatry 03/22/12 documented as of this encounter
--- OUTSIDE RECORDS SUMMARY | 2022-02-14 17:07 | XMS_ITS | Encounter Summary ---
:1970 Author Organization [employer] [facility] Address [address] [place] [address] Care Team Providers Name Role Phone Gagandeep Hinojosa MD Primary Care Provider Reason for Visit Reason Onset Date Comments [facility] Phone Visit 06/24/2016 Encounter Details Date Type Department Care Team Description 06/24/2016 Care Coord Phone Judy Luke R N [facility] Phone Visit Medicine 1415 [facility] 1415 [facility] [place] [address] [place] [address] [phone] Social History Tobacco Use Types Packs/Day Years [...] RN - 06/24/2016 1:13 PM CST RN Well Treatment Offsider - Diabetes Follow-Up Current diabetes medication regimen: [...] with plan of care and follow up. [employer] LIGHT documented in this encounter Plan of Treatment [...] unspecified documented in this encounter Care Teams Printing Sales Representative Relationship Specialty Start Date End Date Gagandeep Hinojosa MD PCP - General 05/17/12 1415 [place] [address] Vane Zarate Psychiatrist Psychiatry 03/22/12 documented as of this encounter
--- OUTSIDE RECORDS SUMMARY | 2022-02-14 17:07 | XMS_ITS | Encounter Summary ---
:1970 Author Organization [employer] Address [address] [address] Care Team Providers Name Role Phone Gagandeep Hinojosa MD Primary Care Provider Reason for Visit Reason Onset Date Comments DIABETES, MELLITUS 07/04/2016 Encounter Details Date Type Department Care Team Description 07/04/2016 Nurse Triage [facility] Gagandeep Hinojosa, DIABE TOMMY, MELLITUS Medicine 1415 [facility] . 1415 [place] [address] [place], [place] [id number] (Wo rk) Social History Tobacco Use Types [...] PM CDT Protocol: DIABETES - LOW BLOOD [id number] Affirmative: Low blood sugar prevention, questions about [...] on filedocumented in this encounter Care Teams Management Trainee Relationship Specialty Start Date End Date Gagandeep Hinojosa MD PCP - General 05/17/12 [facility]5 [facility] [place] [address] Vane Zarate Psychiatrist Psychiatry 03/22/12 documented as of this encounter
--- OUTSIDE RECORDS SUMMARY | 2022-02-14 17:07 | XMS_ITS | Encounter Summary ---
:1970 Author Organization [facility] Address [address] [place] [address] Care Team Providers Name Role Phone Gagandeep Hinojosa MD Primary Care Provider Reason for Visit Reason Onset Date Comments [facility] Phone Visit 07/05/2016 Encounter Details Date Type Department Care Team Description 07/05/2016 Care Coord Phone [facility] Deborah Rodrigues, [facility] Phone Visit [facility] [address] [facility] . 1415 [place] [address] [place] [address] [phone] Social History Tobacco Use Types Packs/Day Years [...] this encounter Progress Notes Deborah Rodrigues, [facility] - 07/05/2016 3:30 PM CDT Trust Officer - Phone Call Contact with: Rustam Reason [...] he has a Psychiatrist, therapist and RN Trust Officer that check-in with himregularly. Rustam agreed to only call once a week, unless he felt it was an emergency. Rustam agreed to this plan and denied any other concerns at this time. Shared plan: -[facility] phone follow-up in one week. Pt verbalized understanding and agreed with plan of care and follow up. documented in this encounter Plan of Treatment Not on filedocumented as of this encounter Visit Diagnoses Diagnosis Health alf, active care coordinati on - Primary documented in this encounter Care Teams Cv Rn Relationship Specialty Start Date End Date Gagandeep Hinojosa MD PCP - General 05/17/12 1415 [facility] [place] [address] Vane Zarate Psychiatrist Psychiatry 03/22/12 documented as of this encounter
--- OUTSIDE RECORDS SUMMARY | 2022-02-14 17:07 | XMS_ITS | Encounter Summary ---
:1970 Author Organization [email or web address] Address [address] [place] [address] Care Team Providers Name Role Phone Gagandeep Hinojosa MD Primary Care Provider Reason for Visit Reason Onset Date Comments [facility] Phone Visit 07/21/2016 Encounter Details Date Type Department Care Team Description 07/21/2016 Care Coord Phone [facility] Deborah Rodrigues, [facility] Phone Visit [facility] 1415 [facility] . 1415 [place] [address] [place] [address] [phone] Social History Tobacco Use Types Packs/Day Years [...] this encounter Progress Notes Deborah Rodrigues, [facility] - 07/21/2016 3:30 PM CDT Community Engagement Specialist - Phone Call Contact with: Rustam [...] one week. Shared plan: -[facility] phone follow-up in one week. Pt verbalized understanding and agreed with plan of care and follow up. documented in this encounter Plan of Treatment Not on filedocumented as of this encounter Visit Diagnoses Diagnosis Health prison, active care coordinati on - Primary documented in this encounter Care Teams Cost Controller Relationship Specialty Start Date End Date Gagandeep Hinojosa MD PCP - General 05/17/12 [address] [place] [id number] Vane Zarate Psychiatrist Psychiatry 03/22/12 documented as of this encounter
--- OUTSIDE RECORDS SUMMARY | 2022-02-14 17:07 | XMS_ITS | Encounter Summary ---
:1970 Author Organization [employer] Address [address], [place] [address] Care Team Providers Name Role Phone Gagandeep Hinojosa MD Primary Care Provider Reason for Visit Reason Onset Date Comments [facility] Phone Visit 06/22/2016 Encounter Details Date Type Department Care Team Description 06/22/2016 Care Coord Phone [facility]ues, [facility] Phone Visit [facility] 1415 [facility] . 1415 [place] [address] [place] [address] [phone] Social History Tobacco Use Types Packs/Day Years Used Date Smoking Tobacco: Every Day Cigarettes 0 25 Smokeless Tobacco: Former Qu it: 10/25/2012 Comments: Smoking History Packs/day: Alcohol Use Standard Drinks/Week Comments No 0 (1 standard drink = 0.6 oz pure Alcoho lic Drinks/day: Amount:0; alcohol) Freq:Never; Sex Assigned at Date Recorded Not on file documented as of this encounter Progress Notes Deborah Rodrigues, [facility] - 06/22/2016 2:30 PM CST Concessionist - Phone Call Contact with: Rustam Reason [...] other concerns at this time. Shared plan: -[facility] phone appointment 06/24. Pt verbalized understanding and agreed with plan of care and follow up. RIAL DAMAGE ADJUSTER Deborah Rodrigues LICSW - 06/22/2016 12:00 PM CST Concessionist - Phone Call Contact with: Rustam Reason for call: Care Coordination Discussion/actions: Rustam called back and said that he could not settle down, and thought he needed to talk to someone. Went over Rustam's calming plan again and he was able to verbalize things that would help him. Rsutam stated that he did contact the crisis line and did a safety plan with them today. Rustam reports increased pacing around his house, and the thoughts that he need's to be talking to someone. Rustam stated that he still has not gotten any sleep, as it has been difficult for him to fallasleep. Rustam stated that he was going to take an vvra-cba-zuhcgjz sleeping medication, as his doctor had previously told him this may be beneficial. Rustam thanked me for checking in with him, and stated he did not need anything further at this time. Again he denied any thoughts of suicide and was able to identify the appropriate time to contact the crisis line if he needed to. Shared plan: -[facility] phone follow-up 06/29. Pt verbalized understanding and agreed with plan of care and follow up. RIAL DAMAGE ADJUSTER Deborah Rodrigues LICSW - 06/22/2016 10:30 AM CST Concessionist - Phone Call Contact with: Rustam Reason [...] other concerns at this time. Shared plan: -[facility] phone follow-up 06/29. Pt verbalized understanding and agreed with plan of care and follow up. RIAL DAMAGE ADJUSTER Deborah Rodrigues LICSW - 06/22/2016 10:00 AM CST Contacted Rustam, per request from RN Concessionist, Judy Pittman. Left a [place]. [place] [phone] if he calls the clinic. RIAL DAMAGE ADJUSTER documented in this encounter Plan of Treatment Not on filedocumented as of this encounter Visit Diagnoses Diagnosis Health retirement, active care coordinati on - Primary documented in this encounter Care Teams Rn Paralegal Relationship Specialty Start Date End Date Gagandeep Hinojosa MD PCP - General 05/17/12 1415 [facility] [place] [address] Vane Zarate Psychiatrist Psychiatry 03/22/12 documented as of this encounter
--- OUTSIDE RECORDS SUMMARY | 2022-02-14 17:07 | XMS_ITS | Encounter Summary ---
:1970 Author Organization [employer] Address [address] [place] [address] Care Team Providers Name Role Phone Gagandeep Hinojosa MD Primary Care Provider Encounter Details Date Type Department Care Team Description 09/07/2016 Lab Visit [facility] Uncontrolled type 2 diabetes mellitus with diabetic polyneuropathy, with long- term current use of insulin (HRC) [E11.42, Z79.4, E11.65]; [address] Hyperlipidemia LDL goal < 70 ; [place] [address] Essential hypertension [phone] Social History Tobacco Use Types Packs/Day Years [...] (ABNORMAL) Microalb/Creat Ratio (09/07/2016 10:26 AM CDT) [facility] Method Time Signature Microalbumin 102.5 mg/L PN SOFT Urine U Creat Random 263 mg/dL PN SOFT Microalbumin/Crea 39.0 (H) 0.0 - PN SOFT tinine Ratio 30.0 Specimen Anatomical Collection Method Collection Time Receive d Time (Source) Location / / Volume Laterality Urine specimen 09/07/2016 10:26 7 2:29 (specimen) AM CDT PM CDT Narrative PN SOFT - 09/07/2016 3:26 PM CDT Performed at [facility], [address] [place] [address] CLIA number [id number] Gagandeep Hinojosa MD LAB_1 Performing Organization Address City/State/ZIP Code Phon e Number PN SOFT [address] [place], [place] [address] [phone] (ABNORMAL) Creatinine / GFR (09/07/2016 10:25 AM [...] - 09/07/2016 3:04 PM CDT Performed at [facility], [address] [place] [address] CLIA number [id number] Gagandeep Hinojosa MD LAB_1 Performing Organization Address [facility] Phon e Number PN SOFT [address] [place] [address] (ABNORMAL) Electrolyte Panel (09/07/2016 10:25 AM CDT) [...] - 09/07/2016 3:04 PM CDT Performed at [facility], [address] [place], [place] [address] CLIA number [id number] Gagandeep Hinojosa MD LAB_1 Performing Organization Address [facility] Phon e Number PN SOFT [address] [place] [address] (ABNORMAL) Lipid Panel and Direct LDL(If Needed) [...] - 09/07/2016 3:04 PM CDT Performed at [facility], [address] [place] [address] CLIA number [id number] Gagandeep Hinojosa MD LAB_1 Performing Organization Address [facility] Phon e Number PN SOFT [address] [place] [address] (ABNORMAL) POCT Glycosylated Hemoglobin (HB A1C) (09/07/2016 10:25 AM CDT) [facility] gist Method Time Signature Glycosolated HGB 8.3 [...] - 09/07/2016 10:35 AM CDT Performed at [facility], [address] [place] [address] CLIA number [id number] Gagandeep Hinojosa MD LAB_1 Performing Organization Address [facility] Phon e Number PN SOFT [address] [place] [address] Extra Serum Separator Tube (yellow) (09/07/2016 10:20 AM CDT) P athologist Signature Extra SST Top Drawn PN SOFT Drawn Specimen (Source) Anatomical Location Collection Method / Collectio n Time Received Time / Laterality Volume Narrative PN SOFT - 09/07/2016 10:20 AM CDT Performed at [facility], [address] [place] [address] CLIA number [id number] Gagandeep Hinojosa MD LAB_1 Performing Organization Address [facility] Phon e Number PN SOFT [address] [place] [address] documented in this encounter Visit Diagnoses Diagnosis Uncontrolled type 2 diabetes mellitus wi th diabetic polyneuropathy, with long-term current use of insulin (HRC) [E11.42, Z7 9.4, E11.65] Hyperlipidemia LDL goal < 70 Other and unspecified hyperlipidemia Essential hypertension (HRC) Unspecified essential hypertension documented in this encounter Care Teams Law Enforcement Officer Relationship Specialty Start Date End Date Gagandeep Hinojosa MD PCP - General 05/17/12 1415 [facility] [place] [id number] Vane Zarate Psychiatrsamantha Psychiatry 03/22/12 documented as of this encounter
--- OUTSIDE RECORDS SUMMARY | 2022-02-14 17:07 | XMS_ITS | Encounter Summary ---
:1970 Author Organization [employer] Address [address] [place] [address] Care Team Providers Name Role Phone Gagandeep Hinojosa MD Primary Care Provider Reason for Visit Reason Comments Follow Up ER [facility] 07-08-16 Hypoglycemia Encounter Details Date Type Department Care Team Description 07/09/2016 Office Visit Gagandeep Storm [facility] emia (Primary Dx); Romario Rubio MD Bipolar I disorder ([facility]); [address] 1415 [facility] Uncontrolled type 2 diabetes mellitus without complication, with long-term current use of insulin ([facility]) [place] [address] [phone] [place] [address] Social History Tobacco Use [...] Patient presents with ??? Follow Up ER [facility] 07-08-16 Hypoglycemia SUBJECTIVE : Timur Krishnamurthy [...] Note: Eye exam done at [facility] on 12/12/13. Mild diabetic retinopathy in right eye. ??? Tobacco use disorder ([facility]) 10/26/2012 ??? ACS (acute coronary syndrome) ([facility]) 10/25/2012 ??? Anemia 05/02/2012 ??? Health mcc, active care coordination 03/22/2012 Overview Note: Floriculture Teacher: JOSETTE Yip [phone] Care coordination focus: T2DM, financial resources Living situation: lives with spouse Important notes: SSDI, significant insulin resistance, uses Relion insulin, commonly reaches Medicare Coverage Gap See care plan under Chart Review > Misc Reports > [facility]B [facility] CARE PLAN REPORT ??? Microalbuminuria 02/04/2012 ??? OH, old ([facility]) 09/16/2011 ??? History [...] [facility] 09/15/2005 Overview Note: LW Onset: [id number] FAMILY HISTORY OR SICK CONTACTS : No [...] documented in this encounter Care Teams Business Analysis Consultant Relationship Specialty Start Date End Date Gagandeep Hinojosa MD PCP - General 05/17/[address] [place], [place] [address] [address] Vane Zarate Psychiatrist Psychiatry 03/22/12 documented as of this encounter
--- OUTSIDE RECORDS SUMMARY | 2022-02-14 17:07 | XMS_ITS | Encounter Summary ---
:1970 Author Organization [facility] Address [address] [place] [address] Care Team Providers Name Role Phone Gagandeep Hinojosa MD Primary Care Provider Reason for Visit Reason Onset Date Comments [facility] Phone Visit 06/23/2016 Encounter Details Date Type Department Care Team Description 06/23/2016 Care Coord Phone Judy Luke R N [facility] Phone Visit Medicine 1415 [facility] 1415 [facility] [address] [place] [address] [phone] Social History Tobacco Use Types Packs/Day Years [...] RN - 06/23/2016 10:36 AM CST RN Manager Of Clinical - Diabetes Follow-Up Current diabetes medication regimen: [...] with plan of care and follow up. PING COORDINATOR documented in this encounter Plan of Treatment Not on filedocumented as of this encounter Visit Diagnoses Diagnosis Health senior care, active care coordinati on - Primary Uncontrolled type 2 diabetes mellitus wi th hyperglycemia, with long-term current use of insulin (HRC) Bipolar I disorder (HRC) Bipolar I disorder, most recent episode (or current) unspecified documented in this encounter Care Teams Fingerer Relationship Specialty Start Date End Date Gagandeep Hinojosa MD PCP - General 05/17/12 6[address] [facility] [place] [id number] Vane Zarate Psychiatrist Psychiatry 03/22/12 documented as of this encounter
--- OUTSIDE RECORDS SUMMARY | 2022-02-14 17:07 | XMS_ITS | Encounter Summary ---
:1970 Author Organization [employer] Address [address], [place] [address] Care Team Providers Name Role Phone Gagandeep Hinojosa MD Primary Care Provider Reason for Visit Reason Onset Date Comments [facility] Phone Visit 07/14/2016 Encounter Details Date Type Department Care Team Description 07/14/2016 Care Coord Phone [facility] Deborah Rodrigues, [facility] Phone Visit [facility] 1415 [facility] . 1415 [place] [address] [place] [address] [phone] Social History Tobacco Use Types Packs/Day Years [...] Deborah Rodrigues, [facility] - 07/14/2016 1:30 PM CDT Worship Leader - Phone Call Contact with: Rustam Reason for call: Care Coordination Discussion/actions: Got an appointment scheduled with KARLEY, Dr. Gladys Longoria, on 07/20 at 10:30. Called Rustam and gave him this information. He agreed to be at this appointment and said that he had transportation. He will call [facility] and check-in next week to discuss how it went. Rustam reports everything else is going fine. Denied any thoughts of suicide. Shared plan: -Therapy appointment 07/20 at 10:30. -[facility] follow-up as needed. Pt verbalized understanding and agreed with plan of care and follow up. documented in this encounter Plan of Treatment Not on filedocumented as of this encounter Visit Diagnoses Diagnosis Health group home, active care coordinati on - Primary documented in this encounter Care Teams Pull Through Hooker Relationship Specialty Start Date End Date Gagandeep Hinojosa MD PCP - General 05/17/12 [facility]5 [facility] [place] [address] Vane Zarate Psychiatrist Psychiatry 03/22/12 documented as of this encounter
--- OUTSIDE RECORDS SUMMARY | 2022-02-14 17:07 | XMS_ITS | Encounter Summary ---
:1970 Author Organization [employer] Address [address] [place] [address] Care Team Providers Name Role Phone Gagandeep Hinojosa MD Primary Care Provider Reason for Visit Reason Onset Date Comments [facility] Phone Visit 07/27/2016 Encounter Details Date Type Department Care Team Description 07/27/2016 Care Coord Phone [facility] Deborah Rodrigues, [facility] Phone Visit [facility] 1415 [facility] . 1415 [place] [address] [place] [address] [phone] Social History Tobacco Use Types Packs/Day Years Used Date Smoking Tobacco: Every Day Cigarettes 0 25 Smokeless Tobacco: Former Qu it: 10/25/2012 Comments: Smoking History Packs/day: Alcohol Use Standard Drinks/Week Comments No 0 (1 standard drink = 0.6 oz pure Alcoho lic Drinks/day: Amount:0; alcohol) Freq:Never; Sex Assigned at Date Recorded Not on file documented as of this encounter Progress Notes Deborah Rodrigues, [facility] - 07/27/2016 3:30 PM CDT Sap Bods Developer - Phone Call Contact with: Rustam Reason [...] Primary documented in this encounter Care Teams Neck Band Setter Relationship Specialty Start Date End Date Gagandeep Hinojosa MD PCP - General 05/17/12 [address] [facility] [place] [address] Vane Zarate Psychiatrist Psychiatry 03/22/12 documented as of this encounter
--- OUTSIDE RECORDS SUMMARY | 2022-02-14 17:07 | XMS_ITS | Encounter Summary ---
:1970 Author Organization [facility] Address [address] [place] [address] Care Team Providers Name Role Phone Gagandeep Hinojosa MD Primary Care Provider Reason for Visit Reason Onset Date Comments Medication Request 04/02/2016 Encounter Details Date Type Department Care Team Description 04/02/2016 Telephone [facility] Gagandeep Hinojosa, Medication Request 1415 [facility] [place] [address] 1415 [facility] [phone] [place] [address] (Wo rk) Social History [...] week. Has one dose left for tomorrow. ER FOLDER OPERATOR Clair Simpson - 04/02/2016 12:14 PM CST See refill request ER FOLDER OPERATOR documented in this encounter Plan of Treatment Not on filedocumented as of this encounter Visit Diagnoses Diagnosis Bipolar I disorder (HRC) - Primary Bipolar I disorder, most recent episode (or current) unspecified documented in this encounter Care Teams Flight Control Manager Relationship Specialty Start Date End Date Gagandeep Hinojosa MD PCP - General 05/17/12 1415 [facility] [place] [address] Vane Zarate Psychiatrsamantha Psychiatry 03/22/12 documented as of this encounter
--- OUTSIDE RECORDS SUMMARY | 2022-02-14 17:07 | XMS_ITS | Encounter Summary ---
:1970 Author Organization [employer] Address [address], [place] [address] Care Team Providers Name Role Phone Gagandeep Hinojosa MD Primary Care Provider Reason for Visit Reason Onset Date Comments FOLLOW-UP,DIABETES 07/18/2016 Encounter Details Date Type Department Care Team Description 07/18/2016 Nurse Triage [facility] Gagandeep Hinojosa, OCTAVIO W-UP,DIABETES Medicine [address] [facility] . 1415 [place] [address] [place] [address] [phone] (Wo rk) Social History Tobacco Use Types [...] test QID. Protocol: DIABETES - LOW BLOOD [id number](07/04) Affirmative: Low blood sugar prevention, questions about [...] Primary documented in this encounter Care Teams Sider Mechanic Relationship Specialty Start Date End Date Gagandeep Hinojosa MD PCP - General 05/17/[address] [place] [address] Vane Zarate Psychiatrist Psychiatry 03/22/12 documented as of this encounter
--- OUTSIDE RECORDS SUMMARY | 2022-02-14 17:07 | XMS_ITS | Encounter Summary ---
:1970 Author Organization [employer] Address [address], [place] [address] Care Team Providers Name Role Phone Gagandeep Hinojosa MD Primary Care Provider Reason for Referral Consult/Transfer Care (Routine) - Closed Specialty Diagnoses / Procedures Referred By Contact Refer red To Contact Diagnoses Controlled type 2 diabetes with neuropathy (HRC) Glenys Alcantar MBBS [address] [place], [place] [address] Referral ID Status Reason Start Date Expiration Date Visits Requ ested Visits Authorized [id number] Closed 07/19/2016 10/18/2017 1 1 Scheduling Instructions Your provider has recommended an appoint ment with [facility]. You may call [phone] to schedule yo appointment. If you do [...] of insulin (HRC) Gagandeep Hinojosa MD 1415 [place] [address] Referral ID Status Reason Start Date Expiration Date Visits Requ ested Visits Authorized [id number] Closed 06/21/2016 09/20/2017 1 1 Encounter Details Date Type Department Care Team Description 07/19/2016 Office Visit [facility] [address] Glenys Alcantar ar I disorder ([facility]) (Primary Dx); Endocrinology REINA Belcher Controlled type 2 diabetes with neuropat hy ([facility]); [address] Yady French [address] JAY Atheroscl erosis of coronary artery, angina presence unspecified, unspecified vessel or lesion type, unspecified whether tunica-biloxi or transplanted heart ([facility]); [address] Hyperlipidemia with target LDL less than 70; [facility], [place] [address] [phone] Social History Tobacco Use Types Packs/Day Years [...] - 07/19/2016 2:32 PM CDT Yady French [facility] Department of Endocrinology, Diabetes and [...] takes lisinopril 10 mg daily BP today [id number]. He takes atorvastatin 80 mg daily, he has history of CAD s/p SD and PCI in 2011. ROS: A 3 [...] and exercise, I will refer him to [facility] for further teaching. We will try to [...] >50% was spent on counseling. REINA Barrera Liquid Loader documented in this encounter Plan of Treatment [...] Controlled type 2 diabetes with neuropat hy ([facility]) Type II or unspecified type diabetes jasen litus with neurological manifestations, not stated as uncontrolled Atherosclerosis of coronary artery, dequan na presence unspecified, unspecified vessel or lesion type, unspecified whether savannah ve or transplanted heart (HR) Hyperlipidemia with target LDL less than 70 (HRC) Other and unspecified hyperlipidemia Microalbuminuria Proteinuria documented in this encounter Care Teams Ip/Mosaic Technician Relationship Specialty Start Date End Date Gagandeep Hinojosa MD PCP - General 05/17/12 1415 [facility] [place] [address] Vane Zarate Psychiatrist Psychiatry 03/22/12 documented as of this encounter
--- OUTSIDE RECORDS SUMMARY | 2022-02-14 17:07 | XMS_ITS | Encounter Summary ---
:1970 Author Organization [employer] Address [address] [place] [address] Care Team Providers Name Role Phone Gagandeep Hinojosa MD Primary Care Provider Reason for Visit Reason Onset Date Comments [facility] Phone Visit 07/15/2016 Encounter Details Date Type Department Care Team Description 07/15/2016 Care Coord Phone WeldaJudy Juarez R N [facility] Phone Visit Medicine 1415 [facility] 1415 [facility] [place] [address] [place] [address] [phone] Social History Tobacco Use Types Packs/Day Years [...] RN - 07/15/2016 12:58 PM CDT RN Cardiothoracic Anesthesia Technician - Diabetes Follow-Up Current diabetes medication [...] attend DM education, but prefersto stay in [place]. I will initiate a referral to St [...] fpc, active care coordinati on - Primary Uncontrolled type 2 diabetes mellitus wi th microalbuminuria, with long-term current use of insulin documented in this encounter Care Teams Active Directory Systems Administrator Relationship Specialty Start Date End Date Gagandeep Hinojosa MD PCP - General 05/17/[address] [place], [place] [address] [address] Vane Zarate Psychiatrist Psychiatry 03/22/12 documented as of this encounter
--- OUTSIDE RECORDS SUMMARY | 2022-02-14 17:07 | XMS_ITS | Encounter Summary ---
:1970 Author Organization [employer] Address [address] [place] [address] Care Team Providers Name Role Phone Gagandeep Hinojosa MD Primary Care Provider Reason for Visit Reason Comments MEDICATION THERAPY MANAGEMENT Encounter Details Date Type Department Care Team Description 04/14/2016 Telephone [facility] Maddy Crane, MEDICA TION THERAPY Management PharmD MANAGEMENT 1415 [facility] . [address] [place] [address] [facility] [phone] [place] [address] (Wo rk) Social History Tobacco [...] have ongoing support through is Quit Plan coach mechanic and would like to occasionally call me as well. He only has a 2 week supply ofnicotine 21mg patches at home and is requesting a refill today. Plan: 1) Quit Date: Ninfa Bourne - April 17, 2016 2) Nicotine 21mg patch and Nicotine 4mg gum Will follow-up as needed. Maddy Crane, Pharm.D. Medication Management Pharmacist Yaritza Medication Management ING NEWS ANCHOR documented in this encounter Plan of Treatment Not on filedocumented as of this encounter Visit Diagnoses Diagnosis Tobacco use disorder (HRC) - Primary Tobacco use disorder documented in this encounter Care Teams Service Cleaner Relationship Specialty Start Date End Date Gagandeep Hinojosa MD PCP - General 05/17/12 1415 [facility] [place] [address] Vane Zarate Psychiatrist Psychiatry 03/22/12 documented as of this encounter
--- OUTSIDE RECORDS SUMMARY | 2022-02-14 17:07 | XMS_ITS | Encounter Summary ---
:1970 Author Organization [employer] Address [address], [place] [address] Care Team Providers Name Role Phone Gagandeep Hinojosa MD Primary Care Provider Reason for Visit Reason Onset Date Comments Medication Request 06/09/2016 Encounter Details Date Type Department Care Team Description 06/09/[facility] Medication Request 1415 [facility] . 1415 [facility] [place] [address] [place] [address] [phone] (Wo rk) Social History Tobacco Use Types [...] Test Strips ?? One Touch Delica Lancets PROGRAMMER Piper Mederos - 06/09/2016 10:58 AM CST Pt calling back with diabetes supply information. -One Touch Ultra II Meter -One Touch Ultra Touch Test Strips -One Touch Delica Lancets PROGRAMMER documented in this encounter Plan of Treatment Not on filedocumented as of this encounter Visit Diagnoses Diagnosis Uncontrolled type 2 diabetes mellitus wi th diabetic polyneuropathy, with long-term current use of insulin - Primary documented in this encounter Care Teams Data Support Analyst Relationship Specialty Start Date End Date Gagandeep Hinojosa MD PCP - General 05/17/12 1415 [facility] [place] [address] Vane Zarate Psychiatrsamantha Psychiatry 03/22/12 documented as of this encounter
--- OUTSIDE RECORDS SUMMARY | 2022-02-14 17:07 | XMS_ITS | Encounter Summary ---
:1970 Author Organization [employer] Address [address] [place] [address] Care Team Providers Name Role Phone Gagandeep Hinojosa MD Primary Care Provider Reason for Visit Reason Onset Date Comments [facility] Phone Visit 06/30/2016 Encounter Details Date Type Department Care Team Description 06/30/2016 Care Coord Phone [facility] Deborah Rodrigues, [facility] Phone Visit [facility] 1415 [facility] . 1415 [place] [address] [place] [address] [phone] Social History Tobacco Use Types Packs/Day Years [...] [facility] - 06/30/2016 3:45 PM CST Veterinary Technology Instructor - Phone Call Contact with: Julius Reason [...] admitted. They did set him up with [facility] appointment, which he is planning on [...] will call in one week. Shared plan: -[facility] phone follow-up in one week. Pt verbalized understanding and agreed with plan of care and follow up. ING ACCESSORIES MAKER documented in this encounter Plan of Treatment Not on filedocumented as of this encounter Visit Diagnoses Diagnosis Health half-way, active care coordinati on - Primary documented in this encounter Care Teams Weight Training Instructor Relationship Specialty Start Date End Date Gagandeep Hinojosa MD PCP - General 05/17/12 [facility]5 [facility] [place] [address] Vane Zarate Psychiatrist Psychiatry 03/22/12 documented as of this encounter
--- OUTSIDE RECORDS SUMMARY | 2022-02-14 17:07 | XMS_ITS | Encounter Summary ---
:1970 Author Organization [facility] Address [address] [place] [address] Care Team Providers Name Role Phone Gagandeep Hinojosa MD Primary Care Provider Reason for Visit Reason Onset Date Comments [facility] Phone Visit 07/12/2016 Encounter Details Date Type Department Care Team Description 07/12/2016 Care Coord Phone [facility] Deborah Rodrigues, [facility] Phone Visit [facility] 1415 [facility] . 1415 [place] [address] [place] [address] [phone] Social History Tobacco Use Types Packs/Day Years [...] Notes Deborah Rodrigues, [facility] - 07/12/2016 2:30 PM CDT Fire Watcher - Phone Call Contact with: Rustam Reason for call: Care Coordination Discussion/actions: Received a phone call from Rustam, stating that he has canceled his [facility] health[facility] at [facility]. He said that he did not feel like these appointments were beneficial, it was kind of a cold in sterile environment. Rustam said that his doctor put him on Ativan PRN, to help reduce his anxiety. He requested to meet with Care Coordination for counseling, as I feel comfortable with you. I explained that I do not do group home counseling, but could help coordinate appropriate mental health services. I agreed to meet with Rustam to discuss appropriate services and goover his coping skills while at home. Rustam agreed with this plan and denied any other concerns at this time. Shared plan: -[facility] appointment 07/13 at 11:00. Pt verbalized understanding and agreed with plan of care and follow up. documented in this encounter Plan of Treatment Not on filedocumented as of this encounter Visit Diagnoses Diagnosis Health m[facility], active care coordinati on - Primary documented in this encounter Care Teams Pattern Perforating Machine Operator Relationship Specialty Start Date End Date Gagandeep Hinojosa MD PCP - General 05/17/12 1415 [facility] [place] [address] Vane Zarate Psychiatrist Psychiatry 03/22/12 documented as of this encounter
--- OUTSIDE RECORDS SUMMARY | 2022-02-14 17:07 | XMS_ITS | Encounter Summary ---
:1970 Author Organization [employer] Address [address], [place] [address] Care Team Providers Name Role Phone Gagandeep Hinojosa MD Primary Care Provider Encounter Details Date Type Department Care Team Description 05/03/2016 Notes/Orders Yaritza [facility] Gagandeep Hinojosa MD 1415 [facility] . 1415 [facility] [place]az[place] [address] [place] [address] [phone] (Wo rk) Social History Tobacco Use Types [...] filedocumented in this encounter Care Teams Supervisor Game Farm Relationship Specialty Start Date End Date Gagandeep Hinojosa MD PCP - General 05/17/12 1418 [facility] [place] [address] Vane Zarate Psychiatrist Psychiatry 03/22/12 documented as of this encounter
--- OUTSIDE RECORDS SUMMARY | 2022-02-14 17:07 | XMS_ITS | Encounter Summary ---
:1970 Author Organization [employer] Address [address], [place] [address] Care Team Providers Name Role Phone Gagandeep Hinojosa MD Primary Care Provider Reason for Visit Reason Onset Date Comments [facility] Phone Visit 07/02/2016 Encounter Details Date Type Department Care Team Description 07/02/2016 Care Coord Phone [facility] Deborah Rodrigues, [facility] Phone Visit [facility] 1415 [facility] 1415 [place] [address] [place] [address] [phone] Social History Tobacco Use Types Packs/Day Years [...] Notes Deborah Rodrigues, [facility] - 07/02/2016 2:30 PM CST Special Education Classroom Aide - Phone Call Contact with: Rustam Reason [...] in approximately one weekto check-in. Shared plan: -[facility] phone follow-up one week. Pt verbalized understanding and agreed with plan of care and follow up. D CAREGIVER documented in this encounter Plan of Treatment Not on filedocumented as of this encounter Visit Diagnoses Diagnosis Health assisted, active care coordinati on - Primary documented in this encounter Care Teams Wire Border Assembler Relationship Specialty Start Date End Date Gagandeep Hinojosa MD PCP - General 05/17/12 1415 [place] [address] Vane Zarate Psychiatrist Psychiatry 03/22/12 documented as of this encounter
--- OUTSIDE RECORDS SUMMARY | 2022-02-14 17:07 | XMS_ITS | Encounter Summary ---
:1970 Author Organization [employer] Address [address], [place] [address] Care Team Providers Name Role Phone Gagandeep Hinojosa MD Primary Care Provider Reason for Referral Procedure/Equipment (Routine) - Closed Specialty Diagnoses / Procedures Referred By Contact Refer red To Contact Diagnoses Paresthesia of lower limb Gagandeep Hinojosa MD [address] [place] [address] Referral ID Status Reason Start Date Expiration Date Visits Requ ested Visits Authorized [id number] Closed 09/07/2016 12/07/2017 1 1 Scheduling Instructions Your provider has recommended an appoint ment with [facility]. You may call [phone] to sche dule your appointment. If you do not schedule an appointment within the next 1 to 3 sine days, we will call you to help arrange your appointment. We suggest you call [employer] about your coverage and benefits for this appointme nt. Reason for Visit Reason Comments Diabetes LEG PAIN 1 month, left Encounter Details Date Type Department Care Team Description 09/07/2016 Office Visit Gagandeep Storm type 2 diabetes mellitus without complication, with long-term current use of insulin (HRC) [E11.65,Z79.4] (Primary Dx); Romario Rubio MD Paresthesia of lower limb; [address] 14[address] [facility] Type 2 d iabetes mellitus without complication, with long-term current use of insulin (HRC) [E11.9, Z79.4]; Ave. Ave superintendent terminal current use of insulin ([facility]); [place] V[place] [address] [place], [place] Essential hypertension; [phone] Hyperlipidemia, unspecified hyperlipidem ia type ([facility]) [E78.5]; [phone] Tobacco use dis order (Work) Social History [...] insulin (HRC) [E11.9, Z79.4] E11.9 Z79.4 4. superintendent terminal current use of insulin (HRC) Z79.4 5. [...] (ABNORMAL) Microalb/Creat Ratio (02/16/2017 11:01 AM CDT) [facility] Rhapso Method Time Signature Microalbumin 124.6 mg/L PN [...] [facility], [address] [place] [address] CLIA number [id number] Gagandeep Hinojosa MD LAB_1 Performing Organization Address City/State/ZIP Code Phon e Number PN SOFT [address] [place] [address] (ABNORMAL) Lipid Panel and Direct LDL(If Needed) (02/16/2017 10:54 AM CDT) [facility] Rhapso Method Time Signature Cholesterol 179 0 - [...] [facility], [address] [place] [address] CLIA number [id number] Gagandeep Hinojosa MD LAB_1 Performing Organization Address [facility] Phon e Number REINA EDMONDS [address] [place] [address] (ABNORMAL) POCT Glycosylated Hemoglobin (HB A1C) (02/16/2017 10:54 AM CDT) [facility] gist Method Time Signature Glycosolated HGB [...] Performed at [facility], [facility] [place] [address] CLIA number [id number] Gagandeep Hinojosa MD LAB_1 Performing Organization Address [facility] Phon e Number REINA EDMONDS [address] [place] [address] documented in this encounter Visit Diagnoses Diagnosis Uncontrolled type 2 diabetes mellitus wi thout complication, with long-term current use of insulin (HRC) [E11.65,Z79.4] - Pr imary Paresthesia of lower limb Disturbance of skin sensation Type 2 diabetes mellitus without complic ation, with long-term current use of insulin (HRC) [E11.9, Z79.4] senior living current use of insulin (HRC) Encounter for long-term (current) use of insulin Essential hypertension (HRC) Unspecified essential hypertension Hyperlipidemia, unspecified hyperlipidem ia type (HRC) [E78.5] Tobacco use disorder (HRC) Tobacco use disorder Uncontrolled type 2 diabetes mellitus wi thout complication, with long-term current use of insulin (HRC) [E11.65,Z79.4] Hyperlipidemia, unspecified hyperlipidem ia type (HRC) [E78.5] documented in this encounter Care Teams Medical Anthropologist Relationship Specialty Start Date End Date Gagandeep Hinojosa MD PCP - General 05/17/12 1415 [facility] [place] [address] Vane Zarate Psychiatrist Psychiatry 03/22/12 documented as of this encounter
--- OUTSIDE RECORDS SUMMARY | 2022-02-14 17:07 | XMS_ITS | Encounter Summary ---
:1970 Author Organization [facility] Address [address] [place] [address] Care Team Providers Name Role Phone Gagandeep Hinojosa MD Primary Care Provider Reason for Visit Reason Onset Date Comments [facility] Phone Visit 06/28/2016 Encounter Details Date Type Department Care Team Description 06/28/2016 Care Coord Phone Judy Luke R N [facility] Phone Visit Medicine 1415 [facility] 1415 [facility] [place] [address] [place] [address] [phone] Social History Tobacco Use Types Packs/Day Years [...] RN - 06/28/2016 1:49 PM CST RN Polysomnography Technologist - Diabetes Follow-Up Current diabetes medication regimen: [...] with plan of care and follow up. STANT SUPERINTENDENT documented in this encounter Plan of Treatment Not on filedocumented as of this encounter Visit Diagnoses Diagnosis Health alf, active care coordinati on - Primary Uncontrolled type 2 diabetes mellitus wi th hyperglycemia, with long-term current use of insulin (HRC) documented in this encounter Care Teams Knitting Supervisor Relationship Specialty Start Date End Date Gagandeep Hinojosa MD PCP - General 05/17/12 7722 [facility] [place] [address] V[address] Zarate Psychiatrsamantha Psychiatry 03/22/12 documented as of this encounter
--- OUTSIDE RECORDS SUMMARY | 2022-02-14 17:07 | XMS_ITS | Encounter Summary ---
:1970 Author Organization [employer] Address [address], [place] [address] Care Team Providers Name Role Phone Gagandeep Hinojosa MD Primary Care Provider Reason for Visit Reason Onset Date Comments APPOINTMENT REQUEST 08/30/2016 Encounter Details Date Type Department Care Team Description 08/30/2016 Nurse Triage [facility] Gagandeep Hinojosa, APPOI NTMENT REQUEST Medicine 1415 [facility] . [address] [facility] [place] [address] [place] [address] [phone] (Wo rk) Social History Tobacco Use Types [...] 08/30/2016 1:17 PM CDT Spoke with pt. [facility] has appointment to see PCP on [...] time. Preferred to discuss at upcoming appointment. Cell Repairer did update appointment reason to add L thigh numbness and pain. All questions answered. Verbalizes understanding of info. To call back if has further concerns/questions. documented in this encounter Plan of Treatment Not on filedocumented as of this encounter Visit Diagnoses Not on filedocumented in this encounter Care Teams Student Finance Specialist Relationship Specialty Start Date End Date Gagandeep Hinojosa MD PCP - General 05/17/12 1415 [facility] [place] [address] Vane Zarate Psychiatrist Psychiatry 03/22/12 documented as of this encounter
--- OUTSIDE RECORDS SUMMARY | 2022-02-14 17:07 | XMS_ITS | Encounter Summary ---
:1970 Author Organization [facility] Address [address] [place] [address] Care Team Providers Name Role Phone Gagandeep Hinojosa MD Primary Care Provider Reason for Visit Reason Onset Date Comments [facility] Phone Visit 06/22/2016 Encounter Details Date Type Department Care Team Description 06/22/2016 Care Coord Phone Judy Luke R N [facility] Phone Visit Medicine 1415 [facility] 1415 [facility] [place] [address] [place] [address] [phone] Social History Tobacco Use Types Packs/Day Years [...] RN - 06/22/2016 10:32 AM CST RN Weather Analyst - Diabetes Follow-Up Current diabetes medication [...] dx Bipolar Disorder. He has called the [facility] Crisis line and Lesly Rodrigues [facility] Weather Analyst about increased anxiety today. I reviewed the [...] with plan of care and follow up. FEEDER documented in this encounter Plan of Treatment Not on filedocumented as of this encounter Visit Diagnoses Diagnosis Health jail, active care coordinati on - Primary Bipolar I disorder (HRC) Bipolar I disorder, most recent episode (or current) unspecified documented in this encounter Care Teams Operations Program Manager Relationship Specialty Start Date End Date Gagandeep Hinojosa MD PCP - General 05/17/12 0330 [facility] [place] [address] Vane Zarate Psychiatrist Psychiatry 03/22/12 documented as of this encounter
--- OUTSIDE RECORDS SUMMARY | 2022-02-14 17:07 | XMS_ITS | Encounter Summary ---
:1970 Author Organization [employer] Address [address] [place] [address] Care Team Providers Name Role Phone Gagandeep Hinojosa MD Primary Care Provider Reason for Visit Reason Comments Diabetes Encounter Details Date Type Department Care Team Description 06/09/2016 Office Visit Leona Gagandeep Russell Uncontro lled type 2 diabetes mellitus without complication, with long-term current use of insulin (HRC) (Primary Dx); Romario Rubio MD Atherosclerosis of coronary artery, dequan na presence unspecified, unspecified vessel or lesion type, unspecified whether chitimacha or transplanted heart (HRC); [address] Tobacco abuse; [address] Essential hypertension; [place] [address] [place] ASHD (arteriosclerotic heart disease); [phone] [address] Hyperlipidemia LDL goal < 70; [phone] Flatulence; (Work) Uncontrolled type 2 diabetes mellitus wi th diabetic polyneuropathy, with long- term current use of insulin (HRC) [E11.42, Z79.4, E11.65]; [phone] Uncontrolled ty pe 2 diabetes mellitus with other ophthalmic complication, with long-term current use of insulin (HRC) [E11.39, Z79.4, E11.65]; (Fax) senior care curre nt use of insulin (HRC); Type [...] Comments Blood Pressure 154/84 06/09/2016 9:53 AM CASTING ASSOCIATE Pulse 106 06/09/2016 9:53 AM CASTING ASSOCIATE Temperature - - Respiratory Rate - - Oxygen Saturation - - Inhaled Oxygen Concentration - - Weight 102.5 kg (226 lb) 06/09/2016 9:45 AM CASTING ASSOCIATE Height - - Body Mass Index 32.43 [...] without complication, with long-term current use of insulin([facility]) E11.65 divalproex (DEPAKOTE) 500 MG enteric coated tablet Z79.4 Insulin Syringe-Needle U-100 (INSULIN SYRINGE 31G X 5/16) 31G X 5/16 1 ML metFORMIN (GLUCOPHAGE) 500 MG tablet 2. Atherosclerosis of coronary artery, angina presence unspecified, unspecified vessel or lesion type, unspecified whether chitimacha or transplanted heart ([facility]) I25.10 lisinopril (ZESTRIL) 10 MG tablet 3. Tobacco abuse ([facility]) Z72.0 4. Essential hypertension ([facility]) I10 lisinopril (ZESTRIL) 10 MG tablet Electrolyte Panel Creatinine / GFR 5. ASHD (arteriosclerotic heart disease) ([facility]) I25.10 atorvastatin (LIPITOR) 80 MG [...] [E11.39, Z79.4, E11.65] E11.39 Z79.4 E11.65 10. lobsterman current use of insulin (HRC) Z79.4 11. Type 2 diabetes mellitus with diabetic polyneuropathy, with long-term current use of insulin (HRC) [E11.42, Z79.4] E11.42 Z79.4 12. Hyperlipidemia, unspecified hyperlipidemia type (HRC) [E78.5] E78.5 13. Tobacco use disorder (HRC) F17.200 aggressively encouraged to stop smoking PLAN: 1. He will again need with tire care manager to discuss his insulin dosing. He may [...] 3 months Aspirin: yes Tobacco: yes ING ASSOCIATE documented in this encounter Plan of Treatment Not on filedocumented as of this encounter Results (ABNORMAL) Microalb/Creat Ratio (09/07/2016 10:26 AM CDT) [facility] gist Method Time Signature Microalbumin 102.5 mg/L PN SOFT Urine U Creat Random 263 mg/dL PN SOFT Microalbumin/Crea 39.0 (H) 0.0 - PN SOFT tinine Ratio 30.0 Specimen Anatomical Collection Method Collection Time Receive d Time (Source) Location / / Volume Laterality Urine specimen 09/07/2016 10:26 7 2:29 (specimen) AM CDT PM CDT Narrative PN SOFT - 09/07/2016 3:26 PM CDT Performed at [facility], [address] [place] [address] CLIA number [id number] Gagandeep Hinojosa MD LAB_1 Performing Organization Address City/State/ZIP Code Phon e Number PN SOFT [address] [place] [address] (ABNORMAL) Creatinine / GFR (09/07/2016 10:25 AM [...] - 09/07/2016 3:04 PM CDT Performed at [facility], [address] [place] [address] CLIA number [id number] Gagandeep Hinojosa MD LAB_1 Performing Organization Address City/[facility]/ZIP Code Phon e Number PN SOFT [address] [place] [address] (ABNORMAL) Electrolyte Panel (09/07/2016 10:25 AM CDT) [...] - 09/07/2016 3:04 PM CDT Performed at [facility], [facility] [address] [place] [address] CLIA number [id number] Gagandeep Hinojosa MD LAB_1 Performing Organization Address [facility]/ZIP Code Phon e Number PN SOFT [address] [place] [address] (ABNORMAL) Lipid Panel and Direct LDL(If Needed) (09/07/2016 10:25 AM CDT) [facility] Method Time Signature Cholesterol 128 [...] - 09/07/2016 3:04 PM CDT Performed at [facility], [address] [place] [address] CLIA number [id number] Gagandeep Hinojosa MD LAB_1 Performing Organization Address [facility] Phon e Number PN SOFT [address] [place] [address] (ABNORMAL) POCT Glycosylated Hemoglobin (HB A1C) (09/07/2016 10:25 AM CDT) [facility] Method Time Signature Glycosolated HGB 8.3 (H) [...] - 09/07/2016 10:35 AM CDT Performed at [facility], [facility] [place] [address] CLIA number [id number] Gagandeep Hinojosa MD LAB_1 Performing Organization Address [facility] Phon e Number PN SOFT [address] [place] [address] documented in this encounter Visit Diagnoses Diagnosis [...] Coronary atherosclerosis of unspecified type of vessel, chitimacha or graft Hyperlipidemia, unspecified hyperlipidem ia type (HRC) [E78.5] Flatulence Flatulence, eructation, and gas pain Uncontrolled type 2 diabetes mellitus wi th diabetic polyneuropathy, with long-term current use of insulin (HRC) [E11.42, Z7 9.4, E11.65] Uncontrolled type 2 diabetes mellitus wi th other ophthalmic complication, with long-term current use of insulin (HRC) [ E11.39, Z79.4, E11.65] senior care current use of insulin (HRC) [...] hypertension documented in this encounter Care Teams Account Retention Representative Relationship Specialty Start Date End Date Gagandeep Hinojosa MD PCP - General 05/17/[address] [place] [address] [place] [address] Vane Zarate Psychiatrsamantha Psychiatry 03/22/12 documented as of this encounter
--- OUTSIDE RECORDS SUMMARY | 2022-02-14 17:07 | XMS_ITS | Encounter Summary ---
:1970 Author Organization [facility] Address [address] [place] [address] Care Team Providers Name Role Phone Gagandeep Hinojosa MD Primary Care Provider Reason for Visit Reason Onset Date Comments [facility] Phone Visit 07/01/2016 Encounter Details Date Type Department Care Team Description 07/01/2016 Care Coord Phone Judy Luke R N [facility] Phone Visit Medicine 1415 [facility] 1415 [facility] [place] [address] [place] [address] [phone] Social History Tobacco Use Types Packs/Day Years [...] RN - 07/01/2016 9:51 AM CST RN Medical Doctor Md - Diabetes Follow-Up Current diabetes medication regimen: [...] with plan of care and follow up. P WORKER documented in this encounter Plan of Treatment Not on filedocumented as of this encounter Visit Diagnoses Diagnosis Health fci, active care coordinati on - Primary Uncontrolled type 2 diabetes mellitus wi th hyperglycemia, with long-term current use of insulin (HRC) Bipolar I disorder (HRC) Bipolar I disorder, most recent episode (or current) unspecified documented in this encounter Care Teams Dry Press Operator Helper Relationship Specialty Start Date End Date Gagandeep Hinojosa MD PCP - General 05/17/12 1413 [facility] [place] [address] Vane Zarate Psychiatrist Psychiatry 03/22/12 documented as of this encounter
--- OUTSIDE RECORDS SUMMARY | 2022-02-14 17:07 | XMS_ITS | Encounter Summary ---
:1970 Author Organization [employer] Address [address] [address] Care Team Providers Name Role Phone Gagandeep Hinojosa MD Primary Care Provider Reason for Visit Reason Onset Date Comments UPDATE 08/19/2016 Encounter Details Date Type Department Care Team Description 08/19/2016 Telephone [facility] [address] MBBS UPDATE Endocrinology [address] [place], [place] [address] [place] [address] [phone] Social History Tobacco Use Types Packs/Day Years [...] of Novolin R breakfast and dinner. 20 [phone] 179-162 documented in this encounter Plan of Treatment Not on filedocumented as of this encounter Visit Diagnoses Not on filedocumented in this encounter Care Teams Natural Resources Instructor Relationship Specialty Start Date End Date Gagandeep Hinojosa MD PCP - General 05/17/12 [address] [place] [address] Vane Zarate Psychiatrist Psychiatry 03/22/12 documented as of this encounter
--- OUTSIDE RECORDS SUMMARY | 2022-02-14 17:07 | XMS_ITS | Encounter Summary ---
:1970 Author Organization [employer] Address [address], [place] [address] Care Team Providers Name Role Phone Gagandeep Hinojosa MD Primary Care Provider Reason for Visit Reason Onset Date Comments DIABETES EDUCATION 08/06/2016 Encounter Details Date Type Department Care Team Description 08/06/2016 Telephone [facility] [address] DI ABETES EDUCATION Endocrinology MBBS [address] [facility] [address] [place], [place] [address] [address] [place], [place] [phone] [id number] Social History Tobacco Use Types Packs/Day Years [...] filedocumented in this encounter Care Teams Senior Escrow Officer Relationship Specialty Start Date End Date Gagandeep Hinojosa MD PCP - General 05/17/12 [facility]5 [facility] [place] [address] Vane Zarate Psychiatrist Psychiatry 11/28/12 documented as of this encounter
--- OUTSIDE RECORDS SUMMARY | 2022-02-14 17:07 | XMS_ITS | Encounter Summary ---
:1970 Author Organization [employer] Address [address] [place] [address] Care Team Providers Name Role Phone Gagandeep Hinojosa MD Primary Care Provider Reason for Visit Reason Onset Date Comments High Blood Sugar 07/07/2016 HYPOGLYCEMIA 07/08/2016 Encounter Details Date Type Department Care Team Description 07/07/2016 Nurse Triage [facility] Gagandeep Hinojosa High Blo od Sugar; Romario Rubio MD HYPOGLYCEMIA [address] [place] [address] [address] [phone] [place], [place] [address] Social History Tobacco Use [...] PM CDT Protocol: DIABETES - LOW BLOOD [id number] Affirmative: Low blood sugar symptoms persist > [...] This was right before he got up. [place] dizzy but no sweating. Drank orange juice [...] on filedocumented in this encounter Care Teams Public Policy Manager Relationship Specialty Start Date End Date Gagandeep Hinojosa MD PCP - General 05/17/12 [address] [place] [address] Vane Zarate Psychiatrist Psychiatry 03/22/12 documented as of this encounter
--- OUTSIDE RECORDS SUMMARY | 2022-02-14 17:07 | XMS_ITS | Encounter Summary ---
:1970 Author Organization [facility] Address [address] [place] [address] Care Team Providers Name Role Phone Gagandeep Michaud MD Primary Care Provider Reason for Visit Reason Comments Refill metoPROLOL succinate (TOPROL XL) 50 MG 24 hour release tablet [Pharmacy Med Name: METOPROLOL ER SUCCINAT E 50MG TABS] Encounter Details Date Type Department Care Team Description 08/08/2016 Refill Gagandeep Storm, Rochelle l (metoPROLOL Medicine MD succinate (TOPROL XL) [address] MG 24 hour release [place] [address] [place] [address] tablet [Pharmacy Med [phone] (Wo rk) Name: METOPROLOL ER SUCCINATE 50MG [...] MICHAUD Ordering User: CHA MUIR Interface, Out GCD Systeme Query - 08/08/2016 10:29 AM CDT metoPROLOL [...] 72 mm Hg on 07/19/2016 Powered by [employer], Reference: [id number], 08/08/2016 10:29:01 AM CDT, Pool: MANUEL LANDAILL ([id number]) documented in this encounter Plan of Treatment Not on filedocumented as of this encounter Visit Diagnoses Not on filedocumented in this encounter Care Teams Maintenance Shop Manager Relationship Specialty Start Date End Date Gagandeep Michaud MD PCP - General 05/17/12 1415 [facility] [place] [address] Vane Zarate Psychiatrist Psychiatry 03/22/12 documented as of this encounter
--- OUTSIDE RECORDS SUMMARY | 2022-02-14 17:07 | XMS_ITS | Encounter Summary ---
:1970 Author Organization [employer] Address [address] [place] [address] Care Team Providers Name Role Phone Gagandeep Hinojosa MD Primary Care Provider Reason for Referral Consult/Transfer Care (Routine) - Closed Specialty Diagnoses / Procedures Referred By Contact Refer red To Contact Diagnoses Uncontrolled type 2 diabetes mellitus with hyperglycemia, with long-term current use of insulin (HRC) Gagandeep Hinojosa MD [address] [facility] [place] [address] Referral ID Status Reason Start Date Expiration Date Visits Requ ested Visits Authorized [id number] Closed 06/21/2016 09/20/2017 1 1 Scheduling Instructions Your provider has recommended an appoint ment with [facility]. You may call [phone] to schedule your a ppointment. If you do not schedule an appointment within the next 1 to 3 busin ess days, we will call you to help arrange your appointment. We suggest you call [employer] about your coverage and benefits for this appointme nt. NG MACHINE OPERATOR Reason for Visit Reason Onset Date Comments [facility] Phone Visit 06/21/2016 Encounter Details Date Type Department Care Team Description 06/21/2016 Care Coord Phone Judy Luke R N [facility] Phone Visit Medicine 1415 [facility] 1415 [facility] . [place] [address] [place] [address] [phone] Social History Tobacco Use Types Packs/Day Years [...] RN - 06/21/2016 10:40 AM CST RN It Application Development Manager - Diabetes Follow-Up Current diabetes [...] calm him, also offering to have our Drill Press Set Up Operator Radial, Lesly Rodrigues, call later this week to [...] with plan of care and follow up. NG MACHINE OPERATOR documented in this encounter Plan of Treatment Scheduled Referrals Name Type Priority Associated Diagnoses Order S [facility] Endocrinology Referral Routine Uncontrolled type 2 Ordered : 06/21/2016 Consult-Adults diabetes mellitus with hyperglycemia, with long-term current use of insulin (HRC) documented as of this encounter Visit Diagnoses Diagnosis Uncontrolled type 2 diabetes mellitus wi th hyperglycemia, with long-term current use of insulin (HRC) - Primary Health fdc, active care coordinati on documented in this encounter Care Teams Director Digital Strategy Relationship Specialty Start Date End Date Gagandeep Hinojosa MD PCP - General 05/17/12 [address] [place] [address] Vane Zarate Psychiatrist Psychiatry 03/22/12 documented as of this encounter
--- OUTSIDE RECORDS SUMMARY | 2022-02-14 17:07 | XMS_ITS | Encounter Summary ---
:1970 Author Organization [employer] Address [address], [place] [address] Care Team Providers Name Role Phone Gagandeep Hinojosa MD Primary Care Provider Reason for Visit Reason Comments HC Face To Face Visit Encounter Details Date Type Department Care Team Description 07/13/2016 Care Coord Deborah Odom, [facility] Fa ce To Face Office Visit Medicine [facility] Visit [address] [facility] [address] [place] [address] [phone] Social History Tobacco Use Types Packs/Day Years Used Date Smoking Tobacco: Every Day Cigarettes 0 25 Smokeless Tobacco: Former Qu it: 10/25/2012 Comments: Smoking History Packs/day: Alcohol Use Standard Drinks/Week Comments No 0 (1 standard drink = 0.6 oz pure Alcoho lic Drinks/day: Amount:0; alcohol) Freq:Never; Sex Assigned at Date Recorded Not on file documented as of this encounter Progress Notes Deborah Rodrigues, [facility] - 07/13/2016 11:00 AM CDT Care [...] is went to one therapy appointment at [facility], but felt like it was sterile and un-welcoming, so he cancelled his second appointment. Talked with Rustam about the importance of having an outlet to help him cope with how he is feeling. Rustam agreed that he needed to go back to see a therapist, but wasn't sure about going back to [facility]. I agreed to talk to Jimena French [...] Primary documented in this encounter Care Teams Relay Checker Relationship Specialty Start Date End Date Gagandeep Hinojosa MD PCP - General 05/17/[address] [place] [address] [place] [address] Vane Zarate Psychiatrist Psychiatry 03/22/12 documented as of this encounter
--- OUTSIDE RECORDS SUMMARY | 2022-02-14 17:08 | XMS_ITS | Encounter Summary ---
:1970 Author Organization [employer] Address [address] [place] [address] Care Team Providers Name Role Phone Gagandeep Hinojosa MD Primary Care Provider Reason for Visit Reason Onset Date Comments [facility] Phone Visit 02/24/2016 Encounter Details Date Type Department Care Team Description 02/24/2016 Care Coord Phone Judy Luke R N [facility] Phone Visit Medicine [address] [facility] 1415 [facility] [place] [address] [place] [address] [phone] Social History Tobacco Use Types Packs/Day Years [...] Pittman RN - 02/26/2016 1:59 PM CDT Christian Education Director - Phone Call Contact with: Rustam [...] but Rustam states she is shy around emergency medicine medical director and wouldn't feel comfortable talking to me. [...] of Tresiba U200 received and entered into [employer]. Insulin is stored in the Injection Room [...] Pittman RN - 02/24/2016 2:42 PM CDT Christian Education Director - Phone Call Contact with: Rustam [...] insulin. Shared plan: Left message for [employer] Rep to request samples of Tresiba. Rustam [...] disorder documented in this encounter Care Teams Target Protection Specialist Relationship Specialty Start Date End Date Gagandeep Hinojosa MD PCP - General 05/17/[address] [place] [address] Vane Zarate Psychiatrist Psychiatry 03/22/12 documented as of this encounter
--- OUTSIDE RECORDS SUMMARY | 2022-02-14 17:08 | XMS_ITS | Encounter Summary ---
:1970 Author Organization [employer] Address [address], [place] [address] Care Team Providers Name Role Phone Gagandeep Hinojosa MD Primary Care Provider Reason for Visit Reason Onset Date Comments Nicotine Dependence 03/12/2016 Encounter Details Date Type Department Care Team Description 03/12/2016 Telephone [facility] Maddy Crane, PharmD Nicotine Dependence Management [facility] [address] [place] [address] [place], [place] [phone] (Wo rk) Social History Tobacco Use [...] today. He has been working with a executive business coach through [employer] as well and finds the support from multiple sources very helpful. He would like to continue checking in with me weekly by telephone. Maddy Crane, Pharm.D. Medication Management Pharmacist [place] Medication Management TRY BARN MANAGER documented in this encounter Plan of Treatment Not on filedocumented as of this encounter Visit Diagnoses Not on filedocumented in this encounter Care Teams Exhibition Specialist Relationship Specialty Start Date End Date Gagandeep Hinojosa MD PCP - General 05/17/12 1415 [facility] [place] [address] Vane Zarate Psychiatrist Psychiatry 03/22/12 documented as of this encounter
--- OUTSIDE RECORDS SUMMARY | 2022-02-14 17:08 | XMS_ITS | Encounter Summary ---
:1970 Author Organization [employer] Address [address], [place] [address] Care Team Providers Name Role Phone Gagandeep Hinojosa MD Primary Care Provider Reason for Visit Reason Onset Date Comments Medication Request 02/25/2016 Jaxson Muhammad Encounter Details Date Type Department Care Team Description 02/25/2016 Telephone [facility] Gagandeep Hinojosa, Medic ation Request Medicine (Jaxson R) 1415 [facility] . [address]15 [place] [address] [place], [place] [address] (Wo rk) Social History Tobacco Use Types [...] MEDICATIONS? Comment: Med not covered Pharmacy Name: [facility] Fax# or Address: [phone] Clinician Name: Ashish Drug Name/Strength: Humulin R [...] Primary documented in this encounter Care Teams Physician Advisor Relationship Specialty Start Date End Date Gagandeep Hinojosa MD PCP - General 05/17/12 1415 [facility] [place] [address] Vane Zarate Psychiatrist Psychiatry 03/22/12 documented as of this encounter
--- OUTSIDE RECORDS SUMMARY | 2022-02-14 17:08 | XMS_ITS | Encounter Summary ---
:1970 Author Organization [facility] Address [address] [place] [address] Care Team Providers Name Role Phone Gagandeep Hinojosa MD Primary Care Provider Reason for Visit Reason Comments Test Request Encounter Details Date Type Department Care Team Description 11/03/2015 Telephone [employer] [facility] Gagandeep Hinojosa MD Test Request 1415 [facility] . [address]15 [place] [address] [place] [address] [phone] (Wo rk) Social History Tobacco Use Types [...] Lab orders requested. Next Steps: Route to [facility] for patient follow up. Additional Information: Pt [...] tomorrow. *If symptom related, send to triage Elementary Substitute Teacher: Timur Krishnamurthy Best call back number: [phone] cell vm/y Is it OK to leave a confidential message on this voicemail? yes ORICAL SITE GUIDE documented in this encounter Plan of Treatment Not on filedocumented as of this encounter Visit Diagnoses Diagnosis Bipolar I disorder (HRC) Bipolar I disorder, most recent episode (or current) unspecified Hyperlipidemia with target LDL less than 70 (HRC) Other and unspecified hyperlipidemia documented in this encounter Care Teams Talent Acquisition Director Relationship Specialty Start Date End Date Gagandeep Hinojosa MD PCP - General 05/17/12 [facility] [place] [address] Vane Zarate Psychiatrist Psychiatry 03/22/12 documented as of this encounter
--- OUTSIDE RECORDS SUMMARY | 2022-02-14 17:08 | XMS_ITS | Encounter Summary ---
:1970 Author Organization [employer] Address [address] [place] [address] Care Team Providers Name Role Phone Gagandeep Hinojosa MD Primary Care Provider Reason for Visit Reason Onset Date Comments Lab Orders Needed 02/23/2016 Encounter Details Date Type Department Care Team Description 02/23/2016 Telephone [facility] Gagandeep Hinojosa, Lab Orders Needed [address] [place] [address] 1415 [facility] [phone] [place] [address] (Wo rk) Social [...] Urine Random (UMAR) (02/24/2016 11:10 AM CDT) [facility] gist Method Time Signature Microalbumin 114.2 mg/L [...] - 02/24/2016 4:26 PM CDT Performed at [facility], [address] [place] [id number] CLIA number [id number] Gagandeep Hinojosa MD LAB_1 Performing Organization Address City/State/ZIP Code Phon e Number PN SOFT [address] [place], [place] [address] documented in this encounter Visit Diagnoses Diagnosis Uncontrolled type 2 diabetes mellitus wi th diabetic polyneuropathy, with long-term current use of insulin - Primary 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
--- OUTSIDE RECORDS SUMMARY | 2022-02-14 17:08 | XMS_ITS | Encounter Summary ---
:1970 Author Organization [employer] Address [address] [place] [address] Care Team Providers Name Role Phone Gagandeep Hinojosa MD Primary Care Provider Reason for Visit Reason Comments Diabetes NUMBNESS Nicotine Dependence Encounter Details Date Type Department Care Team Description 11/04/2015 Office Visit Gagandeep Storm Type 2 d iabetes mellitus, uncontrolled ([facility]) (Primary Dx); Romario Rubio MD Need for Tdap vaccination; [address] [place] [address] Nonspeci fic abnormal results of liver function study; Ave. Ave Atherosclerosis of coronary artery, dequan na presence unspecified, unspecified vessel or lesion type, unspecified whether [place] or transplanted heart ([facility]); [place] [address] [place] termite inspector current use of ins ulin ([facility]); [phone] [id number] Long-term insulin use in type 2 diabetes ([facility]); [phone] Hyperlipidemia, unspecified hyperlipidemia type; (Work) Tobacco use disorder; [phone] Obesity, unspec ified obesity severity, unspecified obesity [...] patch onto the skin. 03/27/2015: Received from: [employer] ??? omega-3 fatty acids-fish oil 340-1,000 mg [...] diabetes mellitus without mention of complication, uncontrolled ([facility])E11.65 lisinopril (PRINIVIL, ZESTRIL) 5 mg tablet insulin NPH (NOVOLIN N) 100 unit/mL Susp insulin regular (NOVOLIN R) 100 unit/mL injection lisinopril (PRINIVIL, ZESTRIL) 5 mg tablet 2. Need for Tdap vaccination Z23 Tdap (BOOSTRIX) 3. Liver Function Tests Abnormal R94.5 Hepatic Function Panel 4. Atherosclerosis of coronary artery, angina presence unspecified, unspecified vessel or lesion type, unspecified whether [place] or transplanted heart I25.10 lisinopril (PRINIVIL, ZESTRIL) [...] yes strongly encouraged to consider smoking cessation CTION PLANT SUPERVISOR documented in this encounter Plan of [...] Need for prophylactic vaccination with c ombined dkaqmhangu-eeidytc-cqgnfhhnr (DTP) vaccine Nonspecific abnormal results of liver fu nction study Atherosclerosis of coronary artery, dequan na presence unspecified, unspecified vessel or lesion type, unspecified whether [place] or transplanted heart (HRC) termite inspector current use of insulin (HRC) Encounter [...] (HRC) documented in this encounter Care Teams Sidewalk Repairer Relationship Specialty Start Date End Date Gagandeep Hinojosa MD PCP - General 05/17/12 [address] [facility] [place] [address] Vane Zarate Psychiatrsamantha Psychiatry 03/22/12 documented as of this encounter
--- OUTSIDE RECORDS SUMMARY | 2022-02-14 17:08 | XMS_ITS | Encounter Summary ---
:1970 Author Organization [facility] Address [address] [place] [address] Care Team Providers Name Role Phone Gagandeep Hinojosa MD Primary Care Provider Encounter Details Date Type Department Care Team Description 10/02/2015 Notes/Orders [place] [facility] Gagandeep Hinojosa MD 1415 [facility] . 1415 [facility] [place] [address] [place] [address] [phone] (Wo rk) Social History Tobacco Use Types Packs/Day Years Used Date Smoking Tobacco: Never Assessed Sex Assigned at Date Recorded Not on file documented as of this encounter Miscellaneous Notes Letter - Gagandeep Hinojosa MD - 10/02/2015 12:00 AM CDT 10/02/2015 Timur Krishnamurthy [address] [place] [address] : 1970 Dear Timur: I am contacting you with a reminder that it is time for your diabetes visit , please call [phone] to schedule your visit due in September. [...] You can schedule your lab appointment at [phone]. Please continue to take your medications as prescribed. We look forward to seeing you again. Gagandeep Hinojosa MD [facility] documented in this encounter Plan of Treatment Not on filedocumented as of this encounter Visit Diagnoses Not on filedocumented in this encounter Care Teams Fire Alarm Dispatcher Relationship Specialty Start Date End Date Gagandeep Hinojosa MD PCP - General 05/17/[address] [place], [place] [address] [address] Vane Zarate Psychiatrist Psychiatry 03/22/12 documented as of this encounter
--- OUTSIDE RECORDS SUMMARY | 2022-02-14 17:08 | XMS_ITS | Encounter Summary ---
:1970 Author Organization [facility] Address [address] [place] [address] Care Team Providers Name Role Phone Gagandeep Hinojosa MD Primary Care Provider Reason for Visit Reason Comments Registry Encounter Details Date Type Department Care Team Description 11/07/2015 Notes/Orders [facility] Gagandeep Hinojosa MD 1415 [facility] . [address] [place] [address] [place] [address] [phone] (Wo rk) Social History Tobacco Use Types Packs/Day Years Used Date Smoking Tobacco: Never Assessed Sex Assigned at Date Recorded Not on file documented as of this encounter Plan of Treatment Not on filedocumented as of this encounter Visit Diagnoses Not on filedocumented in this encounter Care Teams Leather Cartridge Belt Maker Relationship Specialty Start Date End Date Gagandeep Hinojosa MD PCP - General 05/17/12 [facility]15 [facility] [address] Vane Zarate Psychiatrist Psychiatry 03/22/12 documented as of this encounter
--- OUTSIDE RECORDS SUMMARY | 2022-02-14 17:08 | XMS_ITS | Encounter Summary ---
:1970 Author Organization [employer] Address [address] [place] [address] Care Team Providers Name Role Phone Gagandeep Hinojosa MD Primary Care Provider Encounter Details Date Type Department Care Team Description 11/04/2015 Lab Visit [place] [facility] Type 2 diabetes mellitus, un controlled ([facility]); [address] Bipolar I disorder ([facility]); [place] [address] Hyperlipidemia with target L DL less than [...] CDT mellitus, uncontrolled proce dure are in ([facility]) the results section. POCT GLYCOSYLATED STAT 11/04/2015 3:13 Type 2 diabetes Resu lts for this HEMOGLOBIN (HB A1C) PM CDT mellitus, uncontrolle d procedure are in ([facility]) the results section. LIVER PANEL(HEPATIC STAT 11/04/2015 3:13 Resul ts for this FUNCTION PANEL) PM CDT procedure ar e in the results section. VALPROIC ACID Routine 11/04/2015 3:13 Bipolar I disorder Resul ts for this (DEPAKENE) PM CDT ([facility]) procedure are i n the results section. [...] (ABNORMAL) Microalb/Creat Ratio (11/04/2015 3:18 PM CDT) [facility] Method Time Signature Microalbumin 98.2 mg/L HP CONVERSION Urine U Creat Random 284 mg/dL HP CONVERSION Microalbumin/Cre 34.6 (H) 0.0 - HP CONVERSION atinine Ratio 30.0 Specimen Anatomical Collection Method Collection Time Receive d Time (Source) Location / / Volume Laterality 11/04/2015 3:18 PM 6 8:48 CDT AM CDT Narrative HP CONVERSION - 11/05/2015 9:25 AM CDT Performed at [facility], [address] [place] [address] CLIA number [id number] Gagandeep Hinojosa MD LAB_1 Performing Organization Address [facility] Phon e Number HP CONVERSION Liver Panel(Hepatic Function Panel) (11/04/2015 3:13 PM CDT) [facility] Method Time Signature Alk Phos 53 [...] - 11/05/2015 6:06 PM CDT Performed at [facility], [facility] [address] [place] [address] CLIA number [id number] Gagandeep Hinojosa MD LAB_1 Performing Organization Address [facility]/ZIP Code Phon e Number HP CONVERSION ALT (SGPT) (11/04/2015 3:13 PM CDT) [facility] gist Method Time Signature Alanine 23 9 - 55 HP CONVERSION Aminotransferase U/L Specimen Anatomical Collection Method Collection Time Receive d Time (Source) Location / / Volume Laterality 11/04/2015 3:13 PM 6 8:48 CDT AM CDT Narrative HP CONVERSION - 11/05/2015 9:21 AM CDT Performed at [facility], [address] [place] [address] CLIA number [id number] Gagandeep Hinojosa MD LAB_1 Performing Organization Address [facility] Code Phon e Number HP CONVERSION AST (11/04/2015 3:13 PM CDT) [facility] Method Time Signature Aspartate 20 9 - 34 HP CONVERSION Aminotransferase U/L Specimen Anatomical Collection Method Collection Time Receive d Time (Source) Location / / Volume Laterality 11/04/2015 3:13 PM 6 8:48 CDT AM CDT Narrative HP CONVERSION - 11/05/2015 9:21 AM CDT Performed at [facility], [address] [place] [address] CLIA number [id number] Gagandeep Hinojosa MD LAB_1 Performing Organization Address [facility] Phon e Number HP CONVERSION Valproic Acid (Depakene) (11/04/2015 3:13 PM CDT) [facility] gist Method Time Signature Date Last Dose 11/04/2015 HP CONVERSION Valproic Acid Time Last Dose 8am HP CONVERSION Valproic Acid Valproic 53 50 - 100 HP CONVERSION Acid/Depakene ug/mL (Valp) Specimen Anatomical Collection Method Collection Time Receive d Time (Source) Location / / Volume Laterality 11/04/2015 3:13 PM 6 CDT 10:36 PM CDT Narrative HP CONVERSION - 11/04/2015 10:41 PM CDT Performed at [place] [address] [place] [address] CLIA number [id number] Gagandeep Hinojosa MD LAB_1 Performing Organization Address [...] - 11/04/2015 3:35 PM CDT Performed at [facility], [address] [place] [address] CLIA number [id number] Gagandeep Hinojosa MD LAB_1 Performing Organization Address [facility] Phon e Number HP CONVERSION EXTRA SERUM SEPARATOR TUBE (YELLOW) (11/04/2015 3:07 PM CDT) athologist Signature Extra SST Top Drawn HP CONVERSION Drawn Specimen (Source) Anatomical Collection Method Collection Time Re ceived Time Location / / Volume Laterality 11/04/2015 3:07 PM CDT Narrative HP CONVERSION - 11/04/2015 3:07 PM CDT Performed at [facility], [address] [place] [address] CLIA number [id number] Gagandeep Hinojosa MD LAB_1 Performing Organization Address [facility] Phon e Number HP CONVERSION documented in this encounter Visit Diagnoses Diagnosis Type 2 diabetes mellitus, uncontrolled Type II or unspecified type diabetes jasen litus without mention of complication, uncontrolled Bipolar I disorder (HRC) Bipolar I disorder, most recent episode (or current) unspecified Hyperlipidemia with target LDL less than 70 (HRC) Other and unspecified hyperlipidemia documented in this encounter Care Teams Utilization Management Manager Relationship Specialty Start Date End Date Gagandeep Hinojosa MD PCP - General 05/17/[address] [place] [address] Vane Zarate Psychiatrist Psychiatry 03/22/12 documented as of this encounter
--- OUTSIDE RECORDS SUMMARY | 2022-02-14 17:08 | XMS_ITS | Encounter Summary ---
:1970 Author Organization [employer] Address [address] [place] [address] Care Team Providers Name Role Phone Gagandeep Hinojosa MD Primary Care Provider Encounter Details Date Type Department Care Team Description 02/24/2016 Lab Visit [place] [facility] Uncontrolled type 2 diabetes mellitus with diabetic polyneuropathy, with long- term current use of insulin (HRC); [address] Nonspecific abnormal results of liver function study [place] [address] Social History Tobacco Use Types Packs/Day Years [...] - 02/24/2016 4:26 PM CDT Performed at [facility], [address] [place] [address] CLIA number [id number] Gagandeep Hinojosa MD LAB_1 Performing Organization Address [facility] Phon e Number PN SOFT [address] [place] [address] (ABNORMAL) POCT Glycosylated Hemoglobin (HB A1C) (02/24/2016 10:56 AM CDT) [facility] Method Time Signature Glycosolated HGB 10.9 [...] - 02/24/2016 11:30 AM CDT Performed at [facility], [facility] [place] [address] CLIA number [id number] Gagandeep Hinojosa MD LAB_1 Performing Organization Address [facility] Phon e Number PN SOFT [address] [place] [address] Extra Serum Separator Tube (yellow) (02/24/2016 10:54 AM CDT) athologist Signature Extra SST Top Drawn PN SOFT Drawn Specimen (Source) Anatomical Location Collection Method / Collectio n Time Received Time / Laterality Volume Narrative REINA KENDAL - 02/24/2016 10:54 AM CDT Performed at [facility], [address] [facility] [place] [address] CLIA number [id number] Gagandeep Hinojosa MD LAB_1 Performing Organization Address City/State/ZIP Code Phon e Number PN KENDAL [address] [place] [address] documented in this encounter Visit Diagnoses Diagnosis Uncontrolled type 2 diabetes mellitus wi th diabetic polyneuropathy, with long-term current use of insulin Nonspecific abnormal results of liver fu nction study documented in this encounter Care Teams Miniature Train Driver Relationship Specialty Start Date End Date Gagandeep Hinojosa MD PCP - General 05/17/[address] [place] [address] [place] [address] Vane Zarate Psychiatrsamantha Psychiatry 03/22/12 documented as of this encounter
--- OUTSIDE RECORDS SUMMARY | 2022-02-14 17:08 | XMS_ITS | Encounter Summary ---
:1970 Author Organization [employer] Address [address] [place] [address] Care Team Providers Name Role Phone Gagandeep Hinojosa MD Primary Care Provider Reason for Visit Reason Comments MANTOUX/PPD READ Encounter Details Date Type Department Care Team Description 01/29/2016 Nursing Visit [place] [facility] Encounter for PPD skin Medicine test reading (Primary 1415 [facility] . Dx) [place] [address] Social History Tobacco Use Types Packs/Day Years [...] imary documented in this encounter Care Teams Circulation Tender Relationship Specialty Start Date End Date Gagandeep Hinojosa MD PCP - General 05/17/[address] [facility] [place] [id number] Vane Zarate Psychiatrist Psychiatry 03/22/12 documented as of this encounter
--- OUTSIDE RECORDS SUMMARY | 2022-02-14 17:08 | XMS_ITS | Encounter Summary ---
:1970 Author Organization [employer] [facility] [employer] Address [address] [place] [address] Care Team Providers Name Role Phone Gagandeep Hinojosa MD Primary Care Provider Reason for Visit Reason Comments Diabetes Letter needs letter for work re ralph traore Encounter Details Date Type Department Care Team Description 02/24/2016 Office Visit Gagandeep Storm Uncontro lled type 2 diabetes mellitus without complication, with long-term current use of insulin (HRC) (Primary Dx); Romario Rubio MD Encounter for immunization; [address] 14[address] [facility] Tobacco use disorder; Ave. Ave Uncontrolled type 2 diabetes mellitus wi thout complication, with long-term current use of insulin (HRC) [E11.65, Z79.4]; [place] [address] [place] Hyperlipidemia, unspecified hyperlipidemia type (HRC) [E78.5]; [phone] [id number] Financial difficulties Social History Tobacco Use [...] stable. Stable weight. 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 [...] 3. Tobacco use disorder (HR) F17.200 TOBACCO-USE DIRECTOR BLOOD BANK 3-10 MIN (SYMPTOMATIC) 4. Uncontrolled type 2 [...] Results (ABNORMAL) Microalb/Creat Ratio (06/09/2016 10:18 AM CONTRACTS ADMINISTRATOR) [facility] Signature Microalbumin 80.1 mg/L PN SOFT Urine U Creat Random 102 mg/dL PN SOFT Microalbumin/Crea 78.5 (H) 0.0 - PN SOFT tinine Ratio 30.0 Specimen Anatomical Collection Method Collection Time Receive d Time (Source) Location / / Volume Laterality Urine specimen 06/09/2016 10:18 7 (specimen) AM CONTRACTS ADMINISTRATOR 11:38 AM CONTRACTS ADMINISTRATOR Narrative PN SOFT - 06/09/2016 2:09 PM CONTRACTS ADMINISTRATOR Performed at [facility], [facility][note 2] [address] [place] [address] CLIA number [id number] Gagandeep Hinojosa MD LAB_1 Performing Organization Address [facility] Phon e Number PN SOFT [address] [place] [address] (ABNORMAL) Lipid Panel and Direct LDL(If Needed) (06/09/2016 9:22 AM CONTRACTS ADMINISTRATOR) [facility] Signature Cholesterol 123 0 - 199 PN [...] / Volume Laterality 06/09/2016 9:22 AM 7 CONTRACTS ADMINISTRATOR 11:38 AM CONTRACTS ADMINISTRATOR Narrative PN SOFT - 06/09/2016 12:25 PM CONTRACTS ADMINISTRATOR Performed at [facility], [address] [place] [address] CLIA number [id number] Gagandeep Hinojosa MD LAB_1 Performing Organization Address [facility] Phon e Number PN SOFT [address] [place] [address] (ABNORMAL) POCT Glycosylated Hemoglobin (HB A1C) (06/09/2016 9:22 AM CONTRACTS ADMINISTRATOR) Patholo gist Method Time Signature Glycosolated HGB [...] Volume Laterality 06/09/2016 9:22 AM 7 9:22 CONTRACTS ADMINISTRATOR AM CONTRACTS ADMINISTRATOR Narrative PN SOFT - 06/09/2016 9:45 AM CONTRACTS ADMINISTRATOR Performed at [facility], [address] [place] [address] CLIA number [id number] Gagandeep Hinojosa MD LAB_1 Performing Organization Address City/State/ZIP Code Phon e Number PN SOFT [address] [place] [address] documented in this encounter Visit Diagnoses Diagnosis [...] resources documented in this encounter Care Teams Electrical Prospecting Engineer Relationship Specialty Start Date End Date Gagandeep Hinojosa MD PCP - General 05/17/[address] [place] [address] Vane Zarate Psychiatrsamantha Psychiatry 03/22/12 documented as of this encounter
--- OUTSIDE RECORDS SUMMARY | 2022-02-14 17:08 | XMS_ITS | Encounter Summary ---
:1970 Author Organization [facility] Address [address] [address] Care Team Providers Name Role Phone Gagandeep Hinojosa MD Primary Care Provider Reason for Visit Reason Comments MANTOUX/PPD Encounter Details Date Type Department Care Team Description 01/26/2016 Nursing Visit [facility] PPD scree miky test Medicine (Primary Dx) [address] [place] [address] Social History Tobacco Use Types Packs/Day Years [...] SKIN TEST (PPD) (01/29/2016 11:20 AM CDT) [facility] Method Time Signature TB Skin Test 0.0 MM PN POCT Negative Joce Foster MD OPC IMMUNIZATION Performing Organization Address City/State/ZIP Code Phon e Number POCT PN POCT documented in this encounter Visit Diagnoses Diagnosis PPD screening test - Primary Screening examination for pulmonary tube rculosis documented in this encounter Care Teams Electrical/Instrument Technician Relationship Specialty Start Date End Date Gagandeep Hinojosa MD PCP - General 05/17/[address] [facility] [place] [address] Vane Zarate Psychiatrist Psychiatry 03/22/12 documented as of this encounter
--- OUTSIDE RECORDS SUMMARY | 2022-02-14 17:08 | XMS_ITS | Encounter Summary ---
:1970 Author Organization [employer] Address [address], [place] [address] Care Team Providers Name Role Phone Gagandeep Hinojosa MD Primary Care Provider Encounter Details Date Type Department Care Team Description 03/10/2016 Notes/Orders [facility] Gagandeep Hinojosa MD 1415 [facility] . 1415 [facility] [place] [address] [place] [address] [phone] (Wo rk) Social History Tobacco Use Types [...] filedocumented in this encounter Care Teams Financial Services Counselor Relationship Specialty Start Date End Date Gagandeep Hinojosa MD PCP - General 05/17/12 1416 [facility] [place] [address] Vane Zarate Psychiatrist Psychiatry 03/22/12 documented as of this encounter
--- OUTSIDE RECORDS SUMMARY | 2022-02-14 17:08 | XMS_ITS | Encounter Summary ---
:1970 Author Organization [employer] Address [address] [place] [address] Care Team Providers Name Role Phone Gagandeep Hinojosa MD Primary Care Provider Reason for Visit Reason Comments MEDICATION THERAPY MANAGEMENT Nicotine Dependence Encounter Details Date Type Department Care Team Description 03/05/2016 Office Visit [facility] Medication Maddy Crane, Tobacc o abuse Management PharmD (Primary Dx) [address] [address] [facility] [phone] [place], [place] [address] (Wo rk) Social History Tobacco Use Types [...] keep yourself occupied for that time! Play Radio Rebel, [employer] games, going for walks, word searches, chew [...] life! Any questions or concerns, please call [phone] or contact me via CATASYS. Maddy Crane, [facility] Medication Management Pharmacist Changes Your Body Goes [...] morning Keep cigarettes far away from bed [place] teeth and rinse with mouthwash as soon [...] something else in your mouth After Meals [place] teeth or rinse with mouthwash Chew sugarless [...] disappear after 2-4 weeks. Tobacco Cessation Resources [employer]CellARide ?? 2 weeks of nicotine replacement gum, [...] for smart phones ?? SmokeFree ?? MyQuit Circus Rider (Loyda) ?? Stop Smoking - Mindfulness Meditation ?? Quit Pal (National [employer] Crestline) ?? My QuitBuddy ?? My Last Cigarette E FILER documented in this encounter Progress Notes Maddy Crane, PharmD - 03/05/2016 1:17 PM CST Timur Krishnamurthy is a 46 y.o. male coming in for an initial visit for smoking cessation. He was referred to me from Judy Pittman, RNCC. His primary care provider is Gagandeep Hinojosa MD. Comments/concerns are: smoking cessation. Current medication list is in MyToons and was reviewed. Allergies Allergen Reactions ??? [...] with patient is 30 minutes. Maddy Crane [facility] Medication Management Pharmacist Y[facility]itza Medication Management Med Mgmt Smartform completed: yes Follow-up Med Mgmt appointment scheduled: no Added to Care Team: yes MAP/CMS Letter required: No Completed: No E FILER documented in this encounter Plan of Treatment Not on filedocumented as of this encounter Visit Diagnoses Diagnosis Tobacco abuse (HRC) - Primary Tobacco use disorder documented in this encounter Care Teams Tangled Yarn Worker Relationship Specialty Start Date End Date Gagandeep Hinojosa MD PCP - General 05/17/12 [address] [place] [address] Vane Zarate Psychiatrist Psychiatry 03/22/12 documented as of this encounter
--- OUTSIDE RECORDS SUMMARY | 2022-02-14 17:08 | XMS_ITS | Encounter Summary ---
:1970 Author Organization [facility] Address [address] [place] [address] Care Team Providers Name Role Phone Gagandeep Hinojosa MD Primary Care Provider Reason for Visit Reason Comments Prior Authorization Request Encounter Details Date Type Department Care Team Description 07/31/2015 [facility]phone [facility] Gagandeep Hinojosa Au thorization [facility] MD Joanne Request 1415 [facility] . [address] [place] [address] [address] [phone] [place], [place] [address] Social History Tobacco Use Types Packs/Day Years Used Date Smoking Tobacco: Never Assessed Sex Assigned at Date Recorded Not on file documented as of this encounter Nursing Notes Haley Smith LPN - 08/25/2015 11:20 AM CDT Marco Antonio, has this issue been checked into? UM GUIDE Gagandeep Hinojosa MD - 08/05/2015 10:09 AM CDT All of these insulins are tier 3 costs. Please call pharmacy. How much would these cost the patient? IT Marco Antonio Malcolm MA - 07/31/2015 3:30 PM CDT PRIOR AUTHORIZATION OR CHANGE MEDICATIONS? Comment: 30 day supply provided, med not covered after Pharmacy Name: [facility] Fax# or Address: [phone] Clinician Name: Ashish Drug Name/Strength: Novolin R 100unit per mL Sig: Inject 76 Units subcutaneously 2 times daily (before meals). BREAKFAST AND DINNER Formulary Alternative: See list in providers inbasket Insurance Carrier: [employer] Would you like to switch pt to formulary alternative (see list in your inbasket) or start PA for Novolin? documented in this encounter Plan of Treatment Not on filedocumented as of this encounter Visit Diagnoses Not on filedocumented in this encounter Care Teams Dietetic Technician Relationship Specialty Start Date End Date Gagandeep Hinojosa MD PCP - General 05/17/12 [facility] [facility] [place] [address] Vane Zarate Psychiatrist Psychiatry 03/22/12 documented as of this encounter
--- OUTSIDE RECORDS SUMMARY | 2022-02-14 17:08 | XMS_ITS | Encounter Summary ---
:1970 Author Organization [employer] Address [address] [place] [address] Care Team Providers Name Role Phone Gagandeep Hinojosa MD Primary Care Provider Reason for Visit Reason Comments Diabetes Encounter Details Date Type Department Care Team Description 09/27/2015 Nurse Triage [facility] Gagandeep Hinojosa MD Diabetes 1415 [facility] . 1415 [place] [address] [place] [address] [phone] (Wo rk) Social History Tobacco Use Types Packs/Day Years Used Date Smoking Tobacco: Never Assessed Sex Assigned at Date Recorded Not on file documented as of this encounter Nursing Notes Melanie Smith RN - 09/27/2015 9:40 AM CDT Protocol: DIABETES - HIGH BLOOD [id number] Affirmative: Blood glucose > 400 mg/dl (22 mmol/l) Disposition of Call PCP Now suggested. PT took his BS this morning and it was 471. It usually runs in the 150's. He is a little sweaty but otherwise ok. He just took his Insulin , his novolin N and Novolin R . Does not have a sliding scale.Call placed to the publication designer, Dr Ding, who recommended that pt give the Insulins time to kick in [facility] in one hour. Pt called back and informed of this. Pt at this time says he feels dizzy and sweaty and not well. He wants to be seen. Recommended that pt be seen. documented in this encounter Plan of Treatment Not on filedocumented as of this encounter Visit Diagnoses Not on filedocumented in this encounter Care Teams Imaging Technician Relationship Specialty Start Date End Date Gagandeep Hinojosa MD PCP - General 05/17/12 1415 [facility] [place] [address] Vane Zarate Psychiatrist Psychiatry 03/22/12 documented as of this encounter
--- OUTSIDE RECORDS SUMMARY | 2022-02-14 17:08 | XMS_ITS | Encounter Summary ---
:1970 Author Organization [employer] Address [address] [place] [address] Care Team Providers Name Role Phone Gagandeep Michaud MD Primary Care Provider Reason for Visit Reason Comments Refill Encounter Details Date Type Department Care Team Description 12/24/2015 Refill [facility] Gagandeep Michaud MD Refill 1415 [facility] . 1415 [facility] [address] [place] [address] [phone] (Wo rk) Social History Tobacco Use Types [...] - K: 5mEq/L on 07/18/2015 Powered by [employer], Reference: [id number], 12/24/2015 12:10:49 PM CDT, Pool: MANUEL REFILL ([id number]) DEODORIZER SERVICER Shayy Hess RN - 12/24/2015 1:50 PM CDT Renewed medication per medication refill protocol. Requested Prescriptions Signed Prescriptions Disp Refills ??? lisinopril (PRINIVIL, ZESTRIL) 5 mg tablet 90 tablet 2 Sig: TAKE 1 TABLET BY MOUTH EVERY DAY Authorizing Provider: GAGANDEEP MICHAUD Ordering User: SHAYY HESS Rx resent to pharmacy per current order by PCP dated 11/04/15. DEODORIZER SERVICER documented in this encounter Plan of Treatment Not on filedocumented as of this encounter Visit Diagnoses Not on filedocumented in this encounter Care Teams Trash Collector Supervisor Relationship Specialty Start Date End Date Gagandeep Michaud MD PCP - General 05/17/12 1415 [facility] [place] [address] Vane Zarate Psychiatrist Psychiatry 03/22/12 documented as of this encounter
--- OUTSIDE RECORDS SUMMARY | 2022-02-14 17:09 | XMS_ITS | Encounter Summary ---
:1970 Author Organization [employer] Address [address] [place] [address] Care Team Providers Name Role Phone Gagandeep Hinojosa MD Primary Care Provider Encounter Details Date Type Department Care Team Description 07/18/2015 Lab Visit [facility] Laboratory Type 2 diabetes mellitus, un controlled ([facility]); [address] Microalbuminuria; [place] [address] Hyperlipidemia; [phone] Essential hyper tension Social History Tobacco Use [...] mellitus, uncontrolled proc edure are in NEEDED) ([facility]) the results Type 2 diabetes section. mellitus, uncontrolled ([facility]) Hyperlipidemia CREATININE / GFR Routine [...] (ABNORMAL) Microalb/Creat Ratio (07/18/2015 9:12 AM CDT) [facility] Method Time Signature Microalbumin 349.6 mg/L HP CONVERSION Urine U Creat Random 254 mg/dL HP CONVERSION Microalbumin/Cre 137.6 (H) 0.0 - HP CONVERSION atinine Ratio 30.0 Specimen Anatomical Collection Method Collection Time Receive d Time (Source) Location / / Volume Laterality 07/18/2015 9:12 AM 6 CDT 11:32 AM CDT Narrative HP CONVERSION - 07/18/2015 12:56 PM CDT Performed at [facility], [address] [place], [place] [address] CLIA number [id number] Gagandeep Hinojosa MD LAB_1 Performing Organization Address [facility] Phon e Number HP CONVERSION (ABNORMAL) POCT GLYCOSYLATED HEMOGLOBIN (HB A1C) (07/18/2015 9:01 AM CDT) [facility] Time Signature Glycosolated HGB 12.1 (H) [...] - 07/18/2015 9:15 AM CDT Performed at [facility], [address] [place] [address] CLIA number [id number] Gagandeep Hinojosa MD LAB_1 Performing Organization Address City/[facility] Phon e Number HP CONVERSION (ABNORMAL) Creatinine / GFR (07/18/2015 9:01 AM CDT) [facility] Method Time Signature Creatinine 0.60 (L) [...] - 07/18/2015 12:47 PM CDT Performed at [facility], [address] [place] [address] CLIA number [id number] Gagandeep Hinojosa MD LAB_1 Performing Organization Address [facility] Phon e Number HP CONVERSION [...] - 07/18/2015 12:47 PM CDT Performed at [facility], [address] [place] [address] CLIA number [id number] Gagandeep Hinojosa MD LAB_1 Performing Organization Address City/[facility] Phon e Number HP CONVERSION [...] - 07/18/2015 12:47 PM CDT Performed at [facility], [address] [place] [address] CLIA number [id number] Gagandeep Hinojosa MD LAB_1 Performing Organization Address [facility] Phon e Number HP CONVERSION EXTRA SERUM SEPARATOR TUBE (YELLOW) (07/18/2015 8:48 AM CDT) athologist Signature Extra SST Top Drawn HP CONVERSION Drawn Specimen (Source) Anatomical Collection Method Collection Time Re ceived Time Location / / Volume Laterality 07/18/2015 8:48 AM CDT Narrative HP CONVERSION - 07/18/2015 8:48 AM CDT Performed at [facility], [facility] [place] [address] CLIA number [id number] Gagandeep Hinojosa MD LAB_1 Performing Organization Address City/[facility] Phon e Number HP CONVERSION documented in this encounter Visit Diagnoses Diagnosis Type 2 diabetes mellitus, uncontrolled Type II or unspecified type diabetes jasen litus without mention of complication, uncontrolled Microalbuminuria Proteinuria Hyperlipidemia (HRC) Other and unspecified hyperlipidemia Essential hypertension (HRC) Unspecified essential hypertension documented in this encounter Care Teams Sharepoint Net Developer Relationship Specialty Start Date End Date Gagandeep Hinojosa MD PCP - General 05/17/[address] [place] [address] Vane Zarate Psychiatrsamantha Psychiatry 03/22/12 documented as of this encounter
--- OUTSIDE RECORDS SUMMARY | 2022-02-14 17:09 | XMS_ITS | Encounter Summary ---
:1970 Author Organization [employer] Address [address] [place] [address] Care Team Providers Name Role Phone Gagandeep Hinojosa MD Primary Care Provider Reason for Visit Reason Comments Follow-up Encounter Details Date Type Department Care Team Description 02/14/2014 Office Visit [facility] [place]ie [place], Coronary atherosclerosis of unspecified type of vessel, kaibab or graft (Primary Dx); [address] [place], old; [address] [place] Hyperlipidemia LDL goal < 70 ; [place] [address] Blvd Type II or unspecified type diabetes jasen litus without mention of complication, uncontrolled; [phone] [place], [place] Tobacco us e disorder [address] Social History Tobacco Use Types Packs/Day Years [...] Ram PA-C. Call sooner if any concerns [phone] Keri FINCH documented in this encounter Progress Notes [facility]ie [place] PA-C - 02/14/2014 1:33 PM CDT NAME: SHARLENE VARNER MR#: [id number] CSN: [id number] AUTHENTICATING CLINICIAN: Vanessa Ram PA-C CONFIRM #: [id number] LOC: 3205 CLINIC PROGRESS NOTE DATE OF VISIT: 01/09/2014 : 1970 CHIEF COMPLAINT: Coronary artery disease. Mr. Varner is a pleasant, 44-year-old gentleman who presents to the [facility]. He was seen last by Vanessa [...] On his angiogram in 2012, he had wspp-ff-kijgtkwt diffuse disease, specifically inthe distal RCA and [...] 5' 10 (177.8 cm) Wt 231 lb (046288 g) BMI 33.15 kg/m2 Pulsewith my recheck [...] of 60%. Normal left ventricular size with syaj-cp-wougetha concentric left ventricular hypertrophy. No regional wall [...] a bare-metal stent in April 2011. b. Quqi-ay-dthyxuok diffuse nonobstructive distal disease on coronary angiogram on October 27, 2012. Thepreviously deployed stent in the posterior descending branch of the right coronary artery was patent, with tqbo-hl-wezqpmxs in-stent restenosis. This did not appear to [...] Coronary atherosclerosis of unspecified type of vessel, kaibab or graft (HRC) - Primary Coronary atherosclerosis of unspecified type of vessel, kaibab or graft [place], old (HRC) Old myocardial infarction Hyperlipidemia LDL goal < 70 (HRC) Other and unspecified hyperlipidemia Type II or unspecified type diabetes jasen litus without mention of complication, uncontrolled Tobacco use disorder (HRC) Tobacco use disorder documented in this encounter Care Teams Associate Manager Relationship Specialty Start Date End Date Gagandeep Hinojosa MD PCP - General 05/17/12 1415 [facility] [place] [address] Vane Zarate Psychiatrsamantha Psychiatry 03/22/12 documented as of this encounter
--- OUTSIDE RECORDS SUMMARY | 2022-02-14 17:09 | XMS_ITS | Encounter Summary ---
:1970 Author Organization [facility] Address [address], [place] [address] Care Team Providers Name Role Phone Gagandeep Hinojosa MD Primary Care Provider Encounter Details Date Type Department Care Team Description 06/10/2015 Notes/Orders [facility] Gagandeep Hinojosa MD 1415 [facility] . [address] [place] [address] [place] [address] [phone] (Wo rk) Social History Tobacco Use Types Packs/Day Years Used Date Smoking Tobacco: Never Assessed Sex Assigned at Date Recorded Not on file documented as of this encounter Miscellaneous Notes Letter - Gagandeep Hinojosa MD - 06/10/2015 12:00 AM CST 06/10/2015 Timur Krishnamurthy [address] [place] [address] : 1970 Dear Timur: I am contacting you with a reminder that it is time for your diabetes visit , please call [phone] to schedule your visit due in June. [...] You can schedule your lab appointment at [phone]. Please continue to take your medications as prescribed. We look forward to seeing you again. Gagandeep Hinojosa MD PROFESSIONAL documented in this encounter Plan of Treatment Not on filedocumented as of this encounter Visit Diagnoses Not on filedocumented in this encounter Care Teams Last Greaser Relationship Specialty Start Date End Date Gagandeep Hinojosa MD PCP - General 05/17/[address] [place], [place] [address] [address] Vane Zarate Psychiatrist Psychiatry 03/22/12 documented as of this encounter
--- OUTSIDE RECORDS SUMMARY | 2022-02-14 17:09 | XMS_ITS | Encounter Summary ---
:1970 Author Organization [employer] Address [address] [place] [address] Care Team Providers Name Role Phone Gagandeep Hinojosa MD Primary Care Provider Reason for Visit Reason Comments Diabetes Encounter Details Date Type Department Care Team Description 05/14/2014 Notes/Orders [facility] Gagandeep Hinojosa MD 1415 [facility] . [address] [place] [address] [place] [address] [phone] (Wo rk) Social History Tobacco Use Types Packs/Day Years Used Date Smoking Tobacco: Never Assessed Sex Assigned at Date Recorded Not on file documented as of this encounter Miscellaneous Notes Letter - Gagandeep Hinojosa MD - 05/14/2014 12:00 AM CST 05/14/2014 Timur Krishnamurthy [address] [place] [id number] : 1970 Dear Timur: I am contacting you with a reminder that it is time for your diabetes visit , please call [phone] to schedule your visit due in April. [...] You can schedule your lab appointment at [phone]. Please continue to take your medications as prescribed. We look forward to seeing you again. Gagandeep Hinojosa MD IGERATING ENGINEER documented in this encounter Plan of Treatment Not on filedocumented as of this encounter Visit Diagnoses Not on filedocumented in this encounter Care Teams Data Entry Analyst Relationship Specialty Start Date End Date Gagandeep Hinojosa MD PCP - General 05/17/[address] [place] [address] [place] [address] Vane Zarate Psychiatrist Psychiatry 03/22/12 documented as of this encounter
--- OUTSIDE RECORDS SUMMARY | 2022-02-14 17:09 | XMS_ITS | Encounter Summary ---
:1970 Author Organization [facility] Address [address] [place] [address] Care Team Providers Name Role Phone Gagandeep Hinojosa MD Primary Care Provider Reason for Visit Reason Comments Refill Encounter Details Date Type Department Care Team Description 11/27/2014 Refill [facility] Vanessa Ram PA-C Refill 1515 [facility] . [address] [place] [address] [place] [address] [phone] (Wo rk) Social History Tobacco Use Types [...] on filedocumented in this encounter Care Teams Thermocouple Tester Relationship Specialty Start Date End Date Gagandeep Hinojosa MD PCP - General 05/17/12 1415 [place], [place] [address] Vane Zarate Psychiatrist Psychiatry 03/22/12 documented as of this encounter
--- OUTSIDE RECORDS SUMMARY | 2022-02-14 17:09 | XMS_ITS | Encounter Summary ---
:1970 Author Organization [facility] Address [address], [place] [address] Care Team Providers Name Role Phone Gagandeep Hinojosa MD Primary Care Provider Encounter Details Date Type Department Care Team Description 07/07/2015 Notes/Orders [facility] Gagandeep Hinojosa MD 1415 [facility] . 1415 [place] [address] [place] [address] [phone] (Wo rk) Social History Tobacco Use Types Packs/Day Years Used Date Smoking Tobacco: Never Assessed Sex Assigned at Date Recorded Not on file documented as of this encounter Miscellaneous Notes Letter - Gagandeep Hinojosa MD - 07/07/2015 12:00 AM CDT 07/07/2015 Timur Krishnamurthy [address] [place] [id number] : 1970 Dear Timur: Gagandeep Hinojosa MD has reviewed your medical record and noticed you have not scheduled your diabetes visit. We want to make sure your diabetes treatment plan is right for you. Please call and schedule your visit at [phone]. We look forward to hearing from you, Gagandeep Hinojosa MD [address] [employer] documented in this encounter Plan of Treatment Not on filedocumented as of this encounter Visit Diagnoses Not on filedocumented in this encounter Care Teams Software Sales Executive Relationship Specialty Start Date End Date Gagandeep Hinojosa MD PCP - General 05/17/12 1415 [facility] [place] [address] Vane Zarate Psychiatrist Psychiatry 03/22/12 documented as of this encounter
--- OUTSIDE RECORDS SUMMARY | 2022-02-14 17:09 | XMS_ITS | Encounter Summary ---
:1970 Author Organization [facility] Address [address] [address] Care Team Providers Name Role Phone Gagandeep Hinojosa MD Primary Care Provider Encounter Details Date Type Department Care Team Description 08/07/2014 Notes/Orders [facility] Gagandeep Hinojosa MD 1415 [facility] . 1415 [place] [id number] [place] [address] [phone] (Wo rk) Social History Tobacco Use Types Packs/Day Years Used Date Smoking Tobacco: Never Assessed Sex Assigned at Date Recorded Not on file documented as of this encounter Miscellaneous Notes Letter - Gagandeep Hinojosa MD - 08/07/2014 12:00 AM CDT 08/07/2014 Timur Krishnamurthy [address] [place] [id number] : 1970 Dear Timur: I am contacting you with a reminder that it is time for your diabetes visit , please call [phone] to schedule your visit due in July. [...] You can schedule your lab appointment at [phone]. Please continue to take your medications as prescribed. We look forward to seeing you again. Gagandeep Hinojosa MD ATRIC ASSISTANT documented in this encounter Plan of Treatment Not on filedocumented as of this encounter Visit Diagnoses Not on filedocumented in this encounter Care Teams Wire Technician Relationship Specialty Start Date End Date Gagandeep Hinojosa MD PCP - General 05/17/[address] [place], [place] [address] [address] Vane Zarate Psychiatrist Psychiatry 03/22/12 documented as of this encounter
--- OUTSIDE RECORDS SUMMARY | 2022-02-14 17:09 | XMS_ITS | Encounter Summary ---
:1970 Author Organization [employer] Address [address] [place] [address] Care Team Providers Name Role Phone Gagandeep Michaud MD Primary Care Provider Reason for Visit Reason Comments Refill Encounter Details Date Type Department Care Team Description 07/04/2014 Refill [facility] Gagandeep Michaud MD Refill 1415 [facility] . [address] [place] [address] [place] [address] [phone] (Wo rk) Social History Tobacco Use Types [...] - HBA1C: 11.0% on 05/21/2014 Powered by [facility], Reference: [id number], 07/04/2014 2:47:54 PM CDT, Pool: MANUEL REFILL ([id number]) Alaina Garduno RN - 07/04/2014 3:31 PM [...] on filedocumented in this encounter Care Teams Dull Coat Mill Operator Relationship Specialty Start Date End Date Gagandeep Michaud MD PCP - General 05/17/[address] [place] [address] [place] [address] Vane Zarate Psychiatrist Psychiatry 03/22/12 documented as of this encounter
--- OUTSIDE RECORDS SUMMARY | 2022-02-14 17:09 | XMS_ITS | Encounter Summary ---
:1970 Author Organization [facility] Address [address] [address] Care Team Providers Name Role Phone Gagandeep Hinojosa MD Primary Care Provider Encounter Details Date Type Department Care Team Description 02/18/2015 Notes/Orders [facility] Gagandeep Hinojosa MD 1415 [facility] . [address] [place] [address] [place] [address] [phone] (Wo rk) Social History Tobacco Use Types Packs/Day Years Used Date Smoking Tobacco: Never Assessed Sex Assigned at Date Recorded Not on file documented as of this encounter Plan of Treatment Not on filedocumented as of this encounter Visit Diagnoses Not on filedocumented in this encounter Care Teams Research & Insights Executive Relationship Specialty Start Date End Date Gagandeep Hinojosa MD PCP - General 05/17/12 1415 [facility] [place] [address] Vane Zarate Psychiatrsamantha Psychiatry 03/22/12 documented as of this encounter
--- OUTSIDE RECORDS SUMMARY | 2022-02-14 17:09 | XMS_ITS | Encounter Summary ---
:1970 Author Organization [employer] Address [address] [place] [address] Care Team Providers Name Role Phone Gagandeep Hinojosa MD Primary Care Provider Encounter Details Date Type Department Care Team Description 08/22/2014 Lab Visit [facility] Type II or unspecified type 1415 [facility] . diabetes mellitus without [place] [address] mention of complication, uncontrolled Social History Tobacco [...] (ABNORMAL) Microalb/Creat Ratio (08/22/2014 2:05 PM CDT) [facility] Method Time Signature Microalbumin 42.5 mg/L HP CONVERSION Urine U Creat Random 140 mg/dL HP CONVERSION Microalbumin/Cre 30.4 (H) 0.0 - HP CONVERSION atinine Ratio 30.0 Specimen Anatomical Collection Method Collection Time Receive d Time (Source) Location / / Volume Laterality 08/22/2014 2:05 PM 5 7:38 CDT PM CDT Narrative HP CONVERSION - 08/22/2014 8:39 PM CDT Performed at [facility], [address] [place] [address] Gagandeep Hinojosa MD LAB_1 [address]forming [address] [facility] Phon e Number HP CONVERSION (ABNORMAL) HEMOGLOBIN A1C, RAPID (08/22/2014 1:13 PM CDT) Analysis Performed At [facility] Time Signature Hemoglobin A1C 8.9 (H) 4.0 [...] - 08/22/2014 1:24 PM CDT Performed at [facility], [address] [place] [address] Gagandeep Hinojosa MD LAB_[address] Performing [address] [facility] Phon e Number HP CONVERSION documented in this encounter Visit Diagnoses Diagnosis Type II or unspecified type diabetes jasen litus without mention of complication, uncontrolled documented in this encounter Care Teams Foundry Metallurgist Relationship Specialty Start Date End Date Gagandeep Hinojosa MD PCP - General 05/17/[address] [place] [address] Vane Zarate Psychiatrsamantha Psychiatry 03/22/12 documented as of this encounter
--- OUTSIDE RECORDS SUMMARY | 2022-02-14 17:09 | XMS_ITS | Encounter Summary ---
:1970 Author Organization [facility] Address [address] [place] [address] Care Team Providers Name Role Phone Gagandeep Hinojosa MD Primary Care Provider Encounter Details Date Type Department Care Team Description 12/17/2014 Notes/Orders [facility] Gagandeep Hinojosa MD 1415 [facility] . [address] [address] [place] [address] [phone] (Wo rk) Social History Tobacco Use Types Packs/Day Years Used Date Smoking Tobacco: Never Assessed Sex Assigned at Date Recorded Not on file documented as of this encounter Plan of Treatment Not on filedocumented as of this encounter Visit Diagnoses Not on filedocumented in this encounter Care Teams Knitting Machine Operator Automatic Relationship Specialty Start Date End Date Gagandeep Hinojosa MD PCP - General 05/17/12 1415 [facility] [place] [address] Vane Zarate Psychiatrsamantha Psychiatry 03/22/12 documented as of this encounter
--- OUTSIDE RECORDS SUMMARY | 2022-02-14 17:09 | XMS_ITS | Encounter Summary ---
:1970 Author Organization [facility] Address [address] [place] [address] Care Team Providers Name Role Phone Gagandeep Hinojosa MD Primary Care Provider Encounter Details Date Type Department Care Team Description 03/27/2015 Lab Visit [facility] Type 2 diabetes mellitus, un controlled; [address] Hyperlipidemia; [place] [address] Essential hypertension [phone] Social History Tobacco Use Types Packs/Day Years Used Date Smoking Tobacco: Never Assessed Sex Assigned at Date Recorded Not on file documented as of this encounter Plan of Treatment Not on filedocumented as of this encounter Procedures Procedure Name Priority Date/Time Associated Diagnosis Comme nts ALBUMIN/CREAT RATIO Routine 03/27/2015 3:41 Type 2 diabetes Re sults for this PM ACCOUNTING PROFESSOR mellitus, uncontrolled proce dure are in (HRC) the results section. LIPID PANEL AND Routine 03/27/2015 1:53 Essential hypertension Results for this DIRECT LDL(IF PM ACCOUNTING PROFESSOR procedure are in NEEDED) the results section. CREATININE / GFR Routine 03/27/2015 1:53 Essential hypertensio n Results for this PM ACCOUNTING PROFESSOR procedure are i n the results section. ELECTROLYTE PANEL Routine 03/27/2015 1:53 Hyperlipidemia Resul ts for this PM ACCOUNTING PROFESSOR procedure are i n the results section. documented in this encounter Results (ABNORMAL) Microalb/Creat Ratio (03/27/2015 3:41 PM ACCOUNTING PROFESSOR) [facility] Method Time Signature Microalbumin 26.1 mg/L HP CONVERSION Urine U Creat Random 63 58 - 161 HP CONVERSION mg/dL Microalbumin/Cre 41.4 (H) 0.0 - HP CONVERSION atinine Ratio 30.0 Specimen Anatomical Collection Method Collection Time Receive d Time (Source) Location / / Volume Laterality 03/27/2015 3:41 PM 5 5:47 ACCOUNTING PROFESSOR PM ACCOUNTING PROFESSOR Narrative HP CONVERSION - 03/27/2015 6:43 PM ACCOUNTING PROFESSOR Performed at [facility], [facility] [address] [place] [address] CLIA number [id number] Gagandeep Hinojosa MD LAB_1 Performing Organization Address [facility] Phon e Number HP CONVERSION (ABNORMAL) Lipid Panel and Direct LDL(If Needed) (03/27/2015 1:53 PM ACCOUNTING PROFESSOR) [facility] Method Time Signature Cholesterol 148 0 - [...] Volume Laterality 03/27/2015 1:53 PM 5 5:47 ACCOUNTING PROFESSOR PM ACCOUNTING PROFESSOR Narrative HP CONVERSION - 03/27/2015 6:44 PM ACCOUNTING PROFESSOR Performed at [facility], [facility] [address] [place] [address] CLIA number [id number] Gagandeep Hinojosa MD LAB_1 Performing Organization Address [facility] Phon e Number HP CONVERSION (ABNORMAL) Creatinine / GFR (03/27/2015 1:53 PM ACCOUNTING PROFESSOR) [facility] Method Time Signature Creatinine 0.60 (L) 0.73 [...] Volume Laterality 03/27/2015 1:53 PM 5 5:47 ACCOUNTING PROFESSOR PM ACCOUNTING PROFESSOR Narrative HP CONVERSION - 03/27/2015 6:44 PM ACCOUNTING PROFESSOR Performed at [facility], [address] [place] [address] CLIA number [id number] Gagandeep Hinojosa MD LAB_1 Performing Organization Address [facility] Phon e Number HP CONVERSION (ABNORMAL) Electrolyte Panel (03/27/2015 1:53 PM ACCOUNTING PROFESSOR) athologist Signature Sodium 133 (L) 136 - 145 HP CONVERSION mmol/L Potassium 5.0 3.5 - 5.2 HP CONVERSION mmol/L Chloride 98 98 - 107 HP CONVERSION mmol/L Bicarbonate 24 22 - 29 HP CONVERSION mmol/L Specimen Anatomical Collection Method Collection Time Receive d Time (Source) Location / / Volume Laterality 03/27/2015 1:53 PM 5 5:47 ACCOUNTING PROFESSOR PM ACCOUNTING PROFESSOR Narrative HP CONVERSION - 03/27/2015 6:44 PM ACCOUNTING PROFESSOR Performed at [facility], [address] [place] [address] CLIA number [id number] Gagandeep Hinojosa MD LAB_1 Performing Organization Address [facility] Phon e Number HP CONVERSION documented in this encounter Visit Diagnoses Diagnosis Type 2 diabetes mellitus, uncontrolled Type II or unspecified type diabetes jasen litus without mention of complication, uncontrolled Hyperlipidemia (HRC) Other and unspecified hyperlipidemia Essential hypertension (HRC) Unspecified essential hypertension documented in this encounter Care Teams Chief Technician X Ray Relationship Specialty Start Date End Date Gagandeep Hinojosa MD PCP - General 05/17/12 [facility] [place] [address] Vane Zarate Psychiatrsamantha Psychiatry 03/22/12 documented as of this encounter
--- OUTSIDE RECORDS SUMMARY | 2022-02-14 17:09 | XMS_ITS | Encounter Summary ---
:1970 Author Organization [employer] Address [address] [place] [address] Care Team Providers Name Role Phone Gagandeep Hinojosa MD Primary Care Provider Reason for Visit Reason Comments Diabetes Rash Encounter Details Date Type Department Care Team Description 07/18/2015 Office Visit Gagandeep Storm Type 2 d iabetes mellitus, uncontrolled (HR) (Primary Dx); Medicine MD JF Rubio (arteriosclerotic heart disease); [address] 1415 [facility] Hyperlip idemia with target LDL less than 70; 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 03/27/2015: Received from: [employer] ??? 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, uncontrolled Diabetic polyneuropathy associated with type 2 diabetes mellitus (HRC) jail current use of insulin (HRC) Encounter for long-term (current) use of insulin Long-term insulin use in type 2 diabetes (HRC) Type II or unspecified type diabetes jasen litus without mention of complication, not stated as uncontrolled Essential hypertension (HRC) Unspecified essential hypertension Obesity, unspecified obesity severity, u nspecified obesity type (HRC) documented in this encounter Care Teams Ex Chef Relationship Specialty Start Date End Date Gagandeep Hinojosa MD PCP - General 05/17/12 1415 [place] [address] Vane Zarate Psychiatrist Psychiatry 03/22/12 documented as of this encounter
--- OUTSIDE RECORDS SUMMARY | 2022-02-14 17:09 | XMS_ITS | Encounter Summary ---
:1970 Author Organization [facility] Address [address] [place] [address] Care Team Providers Name Role Phone Gagandeep Hinojosa MD Primary Care Provider Reason for Visit Reason Comments Diabetes Encounter Details Date Type Department Care Team Description 03/13/2014 Notes/Orders [facility] Gagandeep Hinojosa MD 1415 [facility] . [address] [place] [address] [place] [address] [phone] (Wo rk) Social History Tobacco Use Types Packs/Day Years Used Date Smoking Tobacco: Never Assessed Sex Assigned at Date Recorded Not on file documented as of this encounter Plan of Treatment Not on filedocumented as of this encounter Visit Diagnoses Not on filedocumented in this encounter Care Teams Member Of The Legislative Assembly Relationship Specialty Start Date End Date Gagandeep Hinojosa MD PCP - General 05/17/12 [facility]15 [facility] [place] [address] Vane Zarate Psychiatrist Psychiatry 03/22/12 documented as of this encounter
--- OUTSIDE RECORDS SUMMARY | 2022-02-14 17:09 | XMS_ITS | Encounter Summary ---
:1970 Author Organization [facility] Address [address] [place] [address] Care Team Providers Name Role Phone Gagandeep Hinojosa MD Primary Care Provider Encounter Details Date Type Department Care Team Description 12/09/2014 Lab Visit [facility] Type II or unspecified type 1415 [facility] . diabetes mellitus without [place] [address] mention of complication, uncontrolled Social History Tobacco [...] - 12/09/2014 1:49 PM CDT Performed at [facility], 14[address] [facility], [place] [address] Gagandeep Hinojosa MD LAB_1 Performing Organization Address [facility] Phon e Number HP CONVERSION (ABNORMAL) HEMOGLOBIN A1C, RAPID (12/09/2014 1:57 PM CDT) Analysis Performed At [facility] Time Signature Hemoglobin A1C 9.3 (H) [...] - 12/09/2014 2:11 PM CDT Performed at [facility], [address] [place] [address] Gagandeep Hinojosa MD LAB_1 Performing Organization Address [facility] Phon e Number HP CONVERSION documented in this encounter Visit Diagnoses Diagnosis Type II or unspecified type diabetes jasen litus without mention of complication, uncontrolled documented in this encounter Care Teams Radiologic Technologist Mammogram Relationship Specialty Start Date End Date Gagandeep Hinojosa MD PCP - General 05/17/[address] [place] [address] Vane Zarate Psychiatrist Psychiatry 03/22/12 documented as of this encounter
--- OUTSIDE RECORDS SUMMARY | 2022-02-14 17:09 | XMS_ITS | Encounter Summary ---
:1970 Author Organization [facility] Address [address] [place] [address] Care Team Providers Name Role Phone Gagandeep Hinojosa MD Primary Care Provider Encounter Details Date Type Department Care Team Description 07/22/2015 Notes/Orders [facility] Gagandeep Hinojosa MD 1415 [facility] . [address] [place] [address] [place] [address] [phone] (Wo rk) Social History Tobacco Use Types Packs/Day Years Used Date Smoking Tobacco: Never Assessed Sex Assigned at Date Recorded Not on file documented as of this encounter Plan of Treatment Not on filedocumented as of this encounter Visit Diagnoses Not on filedocumented in this encounter Care Teams Signals Analyst Relationship Specialty Start Date End Date Gagandeep Hinojosa MD PCP - General 05/17/[address] [facility] [place] [address] Vane Zarate Psychiatrsamantha Psychiatry 03/22/12 documented as of this encounter
--- OUTSIDE RECORDS SUMMARY | 2022-02-14 17:09 | XMS_ITS | Encounter Summary ---
:1970 Author Organization [employer] Address [address] [place] [address] Care Team Providers Name Role Phone Gagandeep Hinojosa MD Primary Care Provider Reason for Visit Reason Comments [facility] Phone Visit Encounter Details Date Type Department Care Team Description 01/31/2014 Care Coord Phone Judy Luke R N [facility] Phone Visit Medicine 1415 [facility] 1415 [facility] [place] [address] [place] [address] [phone] Social History Tobacco Use Types Packs/Day Years Used Date Smoking Tobacco: Never Assessed Sex Assigned at Date Recorded Not on file documented as of this encounter Progress Notes Judy Pittman RN - 02/13/2014 4:04 PM CDT Left message requesting a return call. Please transfer to [phone]. Judy Pittman RN - 02/13/2014 4:04 PM CDT [employer] - Phone Call Contact with: Rustam Reason [...] discovered he could obtain generic insulin through [facility] at half the cost. Rustam [...] at the [facility] requesting medication assistance. [employer] may be another resource, if [facility] is unable to help. Judy Pittman RN - 02/13/2014 4:04 PM CDT [employer] - Phone Call Contact with: [facility] Reason for call: Medication assistance Discussion/actions: Dianne is returning my call. [facility] is willing and able to assist Rustam with onemonth of insulin, unfortunately they do not have enough funding to cover the cost of 2 months. [facility] does not typically work with [...] resources, if needed. Shared plan: Rustam will slate picker his insulin at [facility] tomorrow. Rustam will notify me [...] fdc, active care coordinati on - Primary Inadequate community resources documented in this encounter Care Teams Mill Helper Relationship Specialty Start Date End Date Gagandeep Hinojosa MD PCP - General 05/17/12 1415 [facility] [place] [address] Vane Zarate Psychiatrist Psychiatry 03/22/12 documented as of this encounter
--- OUTSIDE RECORDS SUMMARY | 2022-02-14 17:09 | XMS_ITS | Encounter Summary ---
:1970 Author Organization [facility] Address [address] [place] [address] Care Team Providers Name Role Phone Gagandeep Hinojosa MD Primary Care Provider Encounter Details Date Type Department Care Team Description 08/27/2014 Notes/Orders [facility] Gagandeep Hinojosa MD 1415 [facility] . [address] [place] [address] [place] [address] [phone] (Wo rk) Social History Tobacco Use Types Packs/Day Years Used Date Smoking Tobacco: Never Assessed Sex Assigned at Date Recorded Not on file documented as of this encounter Plan of Treatment Not on filedocumented as of this encounter Visit Diagnoses Not on filedocumented in this encounter Care Teams Bullet Slug Casting Machine Operator Relationship Specialty Start Date End Date Gagandeep Hinojosa MD PCP - General 05/17/12 1415 [facility] [place] [address] Vane Zarate Psychiatrsamantha Psychiatry 03/22/12 documented as of this encounter
--- OUTSIDE RECORDS SUMMARY | 2022-02-14 17:09 | XMS_ITS | Encounter Summary ---
:1970 Author Organization [facility] Address [address] [place] [address] Care Team Providers Name Role Phone Gagandeep Hinojosa MD Primary Care Provider Encounter Details Date Type Department Care Team Description 02/18/2015 Notes/Orders [place] [facility] Gagandeep Hinojosa Type 2 d layo Rubio MD mellitus, uncontrolled [address] 1415 [facility] (Primary Dx) [place] [address] Ave [phone] [facility]3 79 Social History Tobacco Use Types Packs/Day Years Used Date Smoking Tobacco: Never Assessed Sex Assigned at Date Recorded Not on file documented as of this encounter Miscellaneous Notes Letter - Gagandeep Hinojosa MD - 02/18/2015 12:00 AM CDT 02/18/2015 Timur Krishnamurthy [address] [place] [id number] : 1970 Dear Timur: I am contacting you with a reminder that it is time for your diabetes visit , please call [phone] to schedule your visit due in February. [...] You can schedule your lab appointment at [phone]. Please continue to take your medications as prescribed. We look forward to seeing you again. Gagandeep Hinojosa MD TH CARE TECHNICIAN documented in this encounter Plan of Treatment Not on filedocumented as of this encounter Visit Diagnoses Diagnosis Type 2 diabetes mellitus, uncontrolled - Primary Type II or unspecified type diabetes jasen litus without mention of complication, uncontrolled documented in this encounter Care Teams Nursing Admin Relationship Specialty Start Date End Date Gagandeep Hinojosa MD PCP - General 05/17/12 1415 [facility] [place] [address] Vane Zarate Psychiatrist Psychiatry 03/22/12 documented as of this encounter
--- OUTSIDE RECORDS SUMMARY | 2022-02-14 17:09 | XMS_ITS | Encounter Summary ---
:1970 Author Organization [facility] Address [address], [place] [address] Care Team Providers Name Role Phone Gagandeep Hinojosa MD Primary Care Provider Reason for Visit Reason Comments Refill Encounter Details Date Type Department Care Team Description 02/26/2014 [facility] Maricarmen Ram PA-C Refill Cardiology [address] [place] [address] [place] [address] [phone] Social History Tobacco Use Types Packs/Day Years [...] on filedocumented in this encounter Care Teams Tare Man Relationship Specialty Start Date End Date Gagandeep Hinojosa MD PCP - General 05/17/12 1415 [place] [address] Vane Zarate Psychiatrist Psychiatry 03/22/12 documented as of this encounter
--- OUTSIDE RECORDS SUMMARY | 2022-02-14 17:09 | XMS_ITS | Encounter Summary ---
:1970 Author Organization [facility] Address [address], [place] [address] Care Team Providers Name Role Phone Gagandeep Hinojosa MD Primary Care Provider Encounter Details Date Type Department Care Team Description 11/06/2014 Notes/Orders [facility] Gagandeep Hinojosa MD 1415 [facility] . 1415 [place] [address] [place] [address] [phone] (Wo rk) Social History Tobacco Use Types Packs/Day Years Used Date Smoking Tobacco: Never Assessed Sex Assigned at Date Recorded Not on file documented as of this encounter Miscellaneous Notes Letter - Gagandeep Hinojosa MD - 11/06/2014 12:00 AM CDT 11/06/2014 Timur Krishnamurthy [address] [place] [id number] : 1970 Dear Timur: I am contacting you with a reminder that it is time for your diabetes visit , please call [phone] to schedule your visit due in October. [...] You can schedule your lab appointment at [phone]. Please continue to take your medications as prescribed. We look forward to seeing you again. Gagandeep Hinojosa MD (General) ER OF CREDIT CLERK documented in this encounter Plan of Treatment Not on filedocumented as of this encounter Visit Diagnoses Not on filedocumented in this encounter Care Teams Media Relations Specialist Relationship Specialty Start Date End Date Gagandeep Hinojosa MD PCP - General 05/17/[address] [place] [address] Vane Zarate Psychiatrist Psychiatry 03/22/12 documented as of this encounter
--- OUTSIDE RECORDS SUMMARY | 2022-02-14 17:09 | XMS_ITS | Encounter Summary ---
:1970 Author Organization [employer] Address [address] [place] [address] Care Team Providers Name Role Phone Gagandeep Hinojosa MD Primary Care Provider Encounter Details Date Type Department Care Team Description 05/21/2014 Lab Visit [facility] Type II or unspecified type [address] diabetes mellitus without [place] [address] mention of complication, uncontrolled Social History Tobacco Use Types Packs/Day Years Used Date Smoking Tobacco: Never Assessed Sex Assigned at Date Recorded Not on file documented as of this encounter Plan of Treatment Not on filedocumented as of this encounter Procedures Procedure Name Priority Date/Time Associated Diagnosis Comme nts ALBUMIN/CREAT RATIO Routine 05/21/2014 12:21 Type II or Resu lts for this PM MACHINE COMPOSITOR unspecified type procedure a re in diabetes mellitus the result s without mention of section. complication, uncontrolled (HRC) HEMOGLOBIN A1C, Routine 05/21/2014 12:06 Type II or Results for this RAPID PM MACHINE COMPOSITOR unspecified type procedure a re in diabetes mellitus the result s without mention of section. complication, uncontrolled ([facility]C) LIPID PANEL AND Routine 05/21/2014 12:06 Type II or Results for this DIRECT LDL(IF PM MACHINE COMPOSITOR unspecified type procedure are in NEEDED) diabetes mellitus the result s without mention of section. complication, uncontrolled ([facility]C) CREATININE / GFR Routine 05/21/2014 12:06 Type II or Results for this PM MACHINE COMPOSITOR unspecified type procedure a re in diabetes mellitus the result s without mention of section. complication, uncontrolled ([facility]C) ELECTROLYTE PANEL Routine 05/21/2014 12:06 Type II or Result s for this PM MACHINE COMPOSITOR unspecified type procedure a re in diabetes mellitus the result s without mention of section. complication, uncontrolled ([facility]C) documented in this encounter Results (ABNORMAL) Microalb/Creat Ratio (05/21/2014 12:21 PM MACHINE COMPOSITOR) [facility] gist Method Time Signature Microalbumin 129.0 mg/L HP CONVERSION Urine U Creat Random 142 mg/dL HP CONVERSION Microalbumin/Cre 90.8 (H) 0.0 - HP CONVERSION atinine Ratio 30.0 Specimen Anatomical Collection Method Collection Time Receive d Time (Source) Location / / Volume Laterality 05/21/2014 12:21 05/21/2014 3:33 PM MACHINE COMPOSITOR PM MACHINE COMPOSITOR Narrative HP CONVERSION - 05/21/2014 4:13 PM MACHINE COMPOSITOR [place] [address] Gagandeep Hinojosa MD LAB_1 Performing Organization Address [facility] Phon e Number HP CONVERSION Creatinine / GFR (05/21/2014 12:06 PM MACHINE COMPOSITOR) athologist Signature Creatinine 0.8 0.4 - 1.3 [...] Volume Laterality 05/21/2014 12:06 05/21/2014 5:17 PM MACHINE COMPOSITOR PM MACHINE COMPOSITOR Narrative HP CONVERSION - 05/21/2014 6:27 PM MACHINE COMPOSITOR Performed at [facility], [address] [place] [address] Gagandeep Hinojosa MD LAB_1 Performing Organization Address [facility] Phon e Number HP CONVERSION (ABNORMAL) Electrolyte Panel (05/21/2014 12:06 PM MACHINE COMPOSITOR) athologist Signature Sodium 133 (L) 137 - 147 HP CONVERSION mEq/L Potassium 4.4 3.5 - 5.2 HP CONVERSION mEq/L Chloride 95 (L) 98 - 110 HP CONVERSION mEq/L Bicarbonate 27 23 - 33 HP CONVERSION mmol/L Specimen Anatomical Collection Method Collection Time Receive d Time (Source) Location / / Volume Laterality 05/21/2014 12:06 05/21/2014 5:17 PM MACHINE COMPOSITOR PM MACHINE COMPOSITOR Narrative HP CONVERSION - 05/21/2014 6:27 PM MACHINE COMPOSITOR Performed at [facility], [address] [place] [address] Gagandeep Hinojosa MD LAB_1 Performing Organization Address City/[facility] Phon e Number HP CONVERSION (ABNORMAL) Lipid Panel and Direct LDL(If Needed) (05/21/2014 12:06 PM MACHINE COMPOSITOR) [facility] [employer] Method Time Signature Cholesterol 152 0 - [...] Volume Laterality 05/21/2014 12:06 05/21/2014 5:17 PM MACHINE COMPOSITOR PM MACHINE COMPOSITOR Narrative HP CONVERSION - 05/21/2014 6:27 PM MACHINE COMPOSITOR Performed at [facility], [address] [place] [address] Gagandeep Hinojosa MD LAB_1 Performing Organization Address [facility] Phon e Number HP CONVERSION (ABNORMAL) HEMOGLOBIN A1C, RAPID (05/21/2014 12:06 PM MACHINE COMPOSITOR) [facility] Method Time Signature Hemoglobin A1C 11.0 [...] / Volume Laterality 05/21/2014 12:06 05/21/2014 PM MACHINE COMPOSITOR 12:06 PM MACHINE COMPOSITOR Narrative HP CONVERSION - 05/21/2014 12:22 PM MACHINE COMPOSITOR Performed at [facility], [address] [place] [address] Gagandeep Hinojosa MD LAB_1 Performing Organization Address City/State/ZIP Code Phon e Number HP CONVERSION documented in this encounter Visit Diagnoses Diagnosis Type II or unspecified type diabetes jasen litus without mention of complication, uncontrolled documented in this encounter Care Teams Chief Steward/Stewardess Relationship Specialty Start Date End Date Gagandeep Hinojosa MD PCP - General 05/17/12 [address]15 [place] [address] Vane Zarate Psychiatrsamantha Psychiatry 03/22/12 documented as of this encounter
--- OUTSIDE RECORDS SUMMARY | 2022-02-14 17:09 | XMS_ITS | Encounter Summary ---
:1970 Author Organization [facility] Address [address] [place] [address] Care Team Providers Name Role Phone Gagandeep Hinojosa MD Primary Care Provider Reason for Visit Reason Comments Refill Encounter Details Date Type Department Care Team Description 01/22/2015 Refill [facility] Vanessa Ram PA-C Refill [address] [place] [address] [place], [place] [address] (Wo rk) Social History Tobacco Use Types [...] on filedocumented in this encounter Care Teams Service Attendant Relationship Specialty Start Date End Date Gagandeep Hinojosa MD PCP - General 05/17/[address] [facility] [place] [address] Vane Zarate Psychiatrist Psychiatry 03/22/12 documented as of this encounter
--- OUTSIDE RECORDS SUMMARY | 2022-02-14 17:09 | XMS_ITS | Encounter Summary ---
:1970 Author Organization [employer] Address [address] [place] [address] Care Team Providers Name Role Phone Gagandeep Hinojosa MD Primary Care Provider Reason for Visit Reason Comments Diabetes Encounter Details Date Type Department Care Team Description 08/22/2014 Office Visit Gagandeep Storm Type II or unspecified type diabetes mellitus without mention of complication, uncontrolled (Primary Dx); Romario Rubio MD Tobacco use disorder; [address] 1415 [facility] Obesity, unspecified; [place] [address] Av ASHD (arteriosclerotic heart disease) [phone] [place], [place] [address] Social History Tobacco Use Types [...] Coronary atherosclerosis of unspecified type of vessel, elem or graft documented in this encounter Care Teams Twisting Press Operator Relationship Specialty Start Date End Date Gagandeep Hinojosa MD PCP - General 05/17/12 1415 [facility] [place] [address] Vane Zarate Psychiatrsamantha Psychiatry 03/22/12 documented as of this encounter
--- OUTSIDE RECORDS SUMMARY | 2022-02-14 17:09 | XMS_ITS | Encounter Summary ---
:1970 Author Organization [facility] Address [address] [place] [address] Care Team Providers Name Role Phone Gagandeep Hinojosa MD Primary Care Provider Reason for Visit Reason Comments Refill Encounter Details Date Type Department Care Team Description 07/04/2014 Refill [facility] Vanessa Ram, PAAntoineC Refill 1515 [facility] . [address] [place] [facility] [place] [address] [place] [address] [phone] (Wo rk) Social History Tobacco Use Types Packs/Day Years Used Date Smoking Tobacco: Never Assessed Sex Assigned at Date Recorded Not on file documented as of this encounter Plan of Treatment Not on filedocumented as of this encounter Visit Diagnoses Not on filedocumented in this encounter Care Teams Wire Mesh Filter Fabricator Relationship Specialty Start Date End Date Gagandeep Hinojosa MD PCP - General 05/17/12 1415 [place] [address] Vane Zarate Psychiatrist Psychiatry 03/22/12 documented as of this encounter
--- OUTSIDE RECORDS SUMMARY | 2022-02-14 17:09 | XMS_ITS | Encounter Summary ---
:1970 Author Organization [employer] Address [address] [address] Care Team Providers Name Role Phone Gagandeep Hinojosa MD Primary Care Provider Encounter Details Date Type Department Care Team Description 09/18/2014 Hospital Encounter Heart & Vascular Chest pain, unspecified Center Nuclear (Primary Dx) Cardiology [address] [place] [address] Social History Tobacco Use Types [...] CONVERSION - 09/18/2014 10:10 AM CDT Loading... [facility]*, 14[address] [facility] [place] [address] ?? Results STRESS TEST PHARMACOLOGICAL ( (Order [id number]) ? Original Order Diagnosis Diagnosis Chest pain, [...] Result History ??STRESS TEST PHARMACOLOGICAL (Order #[id number]) on 09/18/14 - Order Result History Report. ?? Hard Copy Result Report ??Open Hard Copy Result Report (Order#[id number] - STRESS TEST PHARMACOLOGICAL) ?? STRESS TEST PHARMACOLOGICAL (Accession A [id number]) (Order [id number]) ?Image Documentation: Technologist ?No findings ? Removed from In Basket ??Done By ??Kailash Green DO on 09/23/2014 10: 08 PM ?? Patient Release Status: ?This result is not viewable by the irlanda garcia. ?? Patient Information ??Patient Name Sex ??Timur Krishnamurthy ([id number]) Mal e 1970 ?Room Bed Code Status ??2217 Prior ?? Order STRESS TEST PHARMACOLOGICAL [[id number]] (A ccession [id number]) (Order [id number]) Order Requisition ??STRESS TEST PHARMACOLOGICAL (Order #[id number]) on 09/18/14 ?? Priority and Order Details ??Priority Class ??Routine Hospital Performed ? Quantity ??Ordering Quantity ??1 ?? Order Information ??Date Department Released By Pankaj ambrosio ??09/18/2014 [facility], Order Release Kailash Green DO ?? [...] Information ??Recipient Phone ??Kailash Green DO, DO [[id number] [phone] ?? Appointments for this Order ??09/18/2014 ??9:00 [...] irlanda garcia. ?? Timur Krishnamurthy (MR # [id number]) P arnel at 09/24/14 10:09 AM Kailash Green DO PN CARDIAC SERVICES ORDERABL ES Performing Organization Address City/State/ZIP Code Phon e Number HP CONVERSION documented in this encounter Visit Diagnoses Diagnosis Chest pain, unspecified - Primary documented in this encounter Care Teams House Builder Relationship Specialty Start Date End Date Gagandeep Hinojosa MD PCP - General 05/17/12 1415 [place] [address] Vane Zarate Psychiatrist Psychiatry 03/22/12 documented as of this encounter
--- OUTSIDE RECORDS SUMMARY | 2022-02-14 17:09 | XMS_ITS | Encounter Summary ---
:1970 Author Organization [facility] Address [address], [place] [address] Care Team Providers Name Role Phone Gagandeep Hinojosa MD Primary Care Provider Encounter Details Date Type Department Care Team Description 11/12/2014 Notes/Orders [facility] Gagandeep Hinojosa MD 1415 [facility] . [address] [place] [address] [place] [address] [phone] (Wo rk) Social History Tobacco Use Types Packs/Day Years Used Date Smoking Tobacco: Never Assessed Sex Assigned at Date Recorded Not on file documented as of this encounter Plan of Treatment Not on filedocumented as of this encounter Visit Diagnoses Not on filedocumented in this encounter Care Teams Quilting Machine Helper Relationship Specialty Start Date End Date Gagandeep Hinojosa MD PCP - General 05/17/12 1415 [facility] [place] [address] Vane Zarate Psychiatrsamantha Psychiatry 03/22/12 documented as of this encounter
--- OUTSIDE RECORDS SUMMARY | 2022-02-14 17:09 | XMS_ITS | Encounter Summary ---
:1970 Author Organization [employer] Address [address] [place] [address] Care Team Providers Name Role Phone Gagandeep Hinojosa MD Primary Care Provider Reason for Visit Reason Comments Diabetes Encounter Details Date Type Department Care Team Description 03/27/2015 Office Visit Gagandeep Storm Type 2 d iabetes mellitus, uncontrolled (Primary Dx); Romario Rubio MD Encounter for immunization; [address] 1415 [facility] Microalbuminuria; [place] [address] Ave [facility] current use of insulin; [phone] [place] [address] Long-term insulin use in type 2 diabetes ; [phone] Essential hyper tension; (Work) Hyperlipidemia; Tobacco u se disorder; Non morbid obes ity due to excess calories Social History Tobacco Use Types Packs/Day Years Used Date Smoking Tobacco: Never Assessed Sex Assigned at Date Recorded Not on file documented as of this encounter Last Filed Vital Signs Vital Sign Reading Time Taken Comments Blood Pressure 132/86 03/27/2015 2:05 PM WELDING PANTOGRAPH MACHINE OPERATOR Pulse 72 03/27/2015 2:05 PM WELDING PANTOGRAPH MACHINE OPERATOR Temperature - - Respiratory Rate - - Oxygen Saturation - - Inhaled Oxygen Concentration - - Weight 104.3 kg (230 lb) 03/27/2015 2:05 PM WELDING PANTOGRAPH MACHINE OPERATOR Height - - Body Mass Index 33 [...] without mention of complication, uncontrolled ([facility])E11.65 250.02 Fluarix Influenza QIV (36+ mos) OPTOMETRY [...] 3 months Aspirin: yes Tobacco: yes ING PANTOGRAPH MACHINE OPERATOR documented in this encounter Plan of Treatment Not on filedocumented as of this encounter Visit Diagnoses Diagnosis Type 2 diabetes mellitus, uncontrolled - Primary Type II or unspecified type diabetes jasen litus without mention of complication, uncontrolled Encounter for immunization Need for other specified prophylactic va ccination against single bacterial disease Microalbuminuria Proteinuria extermination inspector current use of insulin ([facility]C) Encounter [...] ([facility]) documented in this encounter Care Teams Side Door Man Relationship Specialty Start Date End Date Gagandeep Hinojosa MD PCP - General 05/17/12 1415 [facility] [place] [address] Vane Zarate Psychiatrist Psychiatry 03/22/12 documented as of this encounter
--- OUTSIDE RECORDS SUMMARY | 2022-02-14 17:09 | XMS_ITS | Encounter Summary ---
:1970 Author Organization [employer] Address [address] [place] [address] Care Team Providers Name Role Phone Ggaandeep Hinojosa MD Primary Care Provider Encounter Details Date Type Department Care Team Description 01/16/2014 Lab Visit [facility] Type II or unspecified type diabetes mellitus without mention of complication, uncontrolled; [address] Other and unspecified hyperl ipidemia [place] [address] Social History Tobacco Use Types Packs/Day Years [...] (ABNORMAL) Microalb/Creat Ratio (01/16/2014 10:18 AM CDT) [facility] gist Method Time Signature Microalbumin 120.8 mg/L HP CONVERSION Urine U Creat Random 102 mg/dL HP CONVERSION Microalbumin/Cre 118.4 (H) 0.0 - HP CONVERSION atinine Ratio 30.0 Specimen Anatomical Collection Method Collection Time Receive d Time (Source) Location / / Volume Laterality 01/16/2014 10:18 01/16/2014 AM CDT 12:42 PM CDT Gagandeep Hinojosa MD LAB_1 Performing Organization Address City/[facility] Phon e Number HP CONVERSION Creatinine / [...] - 01/16/2014 12:32 PM [place] [address] Gagandeep Hinojosa MD LAB_1 Performing Organization Address [facility] Phon e Number HP CONVERSION (ABNORMAL) Electrolyte [...] - 01/16/2014 12:32 PM CDT Performed at [facility], [address] [place] [address] Gagandeep Hinojosa MD LAB_1 Performing Organization Address City/[facility]/ZIP [facility] Phon e Number HP CONVERSION (ABNORMAL) HEMOGLOBIN A1C, RAPID (01/16/2014 10:14 AM CDT) [facility] gist Method Time Signature Hemoglobin A1C [...] - 01/16/2014 10:24 AM CDT Performed at [facility], [address] [place] [address] Gagandeep Hinojosa MD LAB_1 Performing Organization Address [facility] Phon e Number HP CONVERSION documented in this encounter Visit Diagnoses Diagnosis Type II or unspecified type diabetes jasen litus without mention of complication, uncontrolled Other and unspecified hyperlipidemia (HR C) Other and unspecified hyperlipidemia documented in this encounter Care Teams Geriatric Physical Therapist Relationship Specialty Start Date End Date Gagandeep Hinojosa MD PCP - General 05/17/[address] [place] [id number] Vane Zarate Psychiatrist Psychiatry 03/22/12 documented as of this encounter
--- OUTSIDE RECORDS SUMMARY | 2022-02-14 17:09 | XMS_ITS | Encounter Summary ---
:1970 Author Organization [employer] Address [address] [place] [address] Care Team Providers Name Role Phone Gagandeep Hinojosa MD Primary Care Provider Reason for Visit Reason Comments Diabetes Encounter Details Date Type Department Care Team Description 05/21/2014 Office Visit Gagandeep Storm Type II or unspecified type diabetes mellitus without mention of complication, uncontrolled (Primary Dx); Romario Rubio MD Background diabetic retinopathy; [address] [facility] current use of ins ulin; [place] [address] [address] Long-term insulin use in type 2 diabetes ; [phone] [place] [address] Unspecified essential hypertension; [phone] Other and unspe cified hyperlipidemia; (Work) Tobacco use disorder; Obesity, unspecified Social History Tobacco Use Types Packs/Day Years Used Date Smoking Tobacco: Never Assessed Sex Assigned at Date Recorded Not on file documented as of this encounter Last Filed Vital Signs Vital Sign Reading Time Taken Comments Blood Pressure 118/77 05/21/2014 1:05 PM OPERATING ROOM SPECIALIST Pulse 94 05/21/2014 1:05 PM OPERATING ROOM SPECIALIST Temperature - - Respiratory Rate - - Oxygen Saturation - - Inhaled Oxygen Concentration - - Weight 106.6 kg (235 lb) 05/21/2014 1:05 PM OPERATING ROOM SPECIALIST Height - - Body Mass Index 33.72 [...] A normal value is less than 30. ATING ROOM SPECIALIST documented in this encounter Progress Notes Gagandeep [...] UMAR: 3 months Aspirin: yes Tobacco: yes ATING ROOM SPECIALIST documented in this encounter Plan of Treatment Not on filedocumented as of this encounter Visit Diagnoses Diagnosis Type II or unspecified type diabetes jasen litus without mention of complication, uncontrolled - Primary Background diabetic retinopathy ([facility]C) Type II or unspecified type diabetes jasen litus with ophthalmic manifestations, not stated as uncontrolled terminal worker current use of insulin (HRC) Encounter for [...] unspecified documented in this encounter Care Teams Geriatric Assistant Relationship Specialty Start Date End Date Gagandeep Hinojosa MD PCP - General 05/17/[address] [facility] [facility] [place] [address] Vane Zarate Psychiatrist Psychiatry 03/22/12 documented as of this encounter
--- OUTSIDE RECORDS SUMMARY | 2022-02-14 17:09 | XMS_ITS | Encounter Summary ---
:1970 Author Organization [employer] Address [address] [place] [address] Care Team Providers Name Role Phone Gagandeep Hinojosa MD Primary Care Provider Reason for Visit Reason Comments [facility] Phone Visit Encounter Details Date Type Department Care Team Description 03/11/2015 Care Coord Phone Judy Luke R N [facility] Phone Visit Medicine 1415 [facility] 14[address] [facility] [place] [address] [place] [address] [phone] Social History Tobacco Use Types Packs/Day Years Used Date Smoking Tobacco: Never Assessed Sex Assigned at Date Recorded Not on file documented as of this encounter Progress Notes Judy Pittman, RN - 03/17/2015 12:29 PM CST Survey Interviewer - Phone Call Contact with: Rustam Reason [...] accommodate this situation in the future. However, uRstam is hoping the [employer] will help [...] Medicare and reach the Coverage Gap through [employer] and Vianney Huma, however Rustam's income is [...] with plan of care and follow up. COVER CUTTER documented in this encounter Plan of Treatment Not on filedocumented as of this encounter Visit Diagnoses Diagnosis Complex care coordination - Primary Type 2 diabetes mellitus, uncontrolled Type II or unspecified type diabetes jasen litus without mention of complication, uncontrolled Inadequate community resources documented in this encounter Care Teams Studio Technician Video Operator Relationship Specialty Start Date End Date Gagandeep Hinojosa MD PCP - General 05/17/12 1415 [facility] [place]ber [address] Vane Zarate Psychiatrist Psychiatry 03/22/12 documented as of this encounter
--- OUTSIDE RECORDS SUMMARY | 2022-02-14 17:09 | XMS_ITS | Encounter Summary ---
:1970 Author Organization [employer] Address [address], [place] [address] Care Team Providers Name Role Phone Gagandeep Hinojosa MD Primary Care Provider Reason for Visit Reason Comments NUMBNESS Neck Pain Encounter Details Date Type Department Care Team Description 07/09/2015 Nurse Triage [place] [facility] Gagandeep Hinojosa, SHASHANK ESS; Neck Pain Medicine 1415 [facility] . 1415 [facility] [place] [address] [place] [address] [phone] (Wo rk) Social History Tobacco Use Types Packs/Day Years Used Date Smoking Tobacco: Never Assessed Sex Assigned at Date Recorded Not on file documented as of this encounter Nursing Notes Cordelia Leyva RN - 07/09/2015 9:44 AM CDT Protocol: NECK PAIN OR [id number] Affirmative: Neck pain or stiffness Disposition of [...] on filedocumented in this encounter Care Teams Low Pressure Boiler Tender Relationship Specialty Start Date End Date Gagandeep Hinojosa MD PCP - General 05/17/[address] [place], [place] [address] [address] Vane Zarate Psychiatrist Psychiatry 03/22/12 documented as of this encounter
--- OUTSIDE RECORDS SUMMARY | 2022-02-14 17:09 | XMS_ITS | Encounter Summary ---
:1970 Author Organization [employer] Address [address] [place] [address] Care Team Providers Name Role Phone Gagandeep Hinojosa MD Primary Care Provider Reason for Visit Reason Comments UPDATE Encounter Details Date Type Department Care Team Description 01/17/2014 Telephone [facility] Vanessa Ram PA-C UPDATE [address] [facility] [address] [facility] . [address] [place] [address] [place], [place] [id number] (Wo rk) Social History Tobacco Use Types [...] for pt. to call me back . [phone] Vanessa Ram PA-C - 01/17/2014 12:40 PM [...] are still elevated since he was in [place] when they were 1274. Further control of [...] filedocumented in this encounter Care Teams Steam Blocker Relationship Specialty Start Date End Date Gagandeep Hinojosa MD PCP - General 05/17/12 1415 [place] Hernandez [address] Vane Zarate Psychiatrist Psychiatry 03/22/12 documented as of this encounter
--- OUTSIDE RECORDS SUMMARY | 2022-02-14 17:09 | XMS_ITS | Encounter Summary ---
:1970 Author Organization [employer] Address [address] [place] [address] Care Team Providers Name Role Phone Gagandeep Hinojosa MD Primary Care Provider Reason for Visit Reason Comments Diabetes Encounter Details Date Type Department Care Team Description 12/09/2014 Office Visit Gagandeep Storm Type II or unspecified type diabetes mellitus without mention of complication, uncontrolled (Primary Dx); Romario Rubio MD ASHD (arteriosclerotic heart disease); [address] 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 current use of insulin (HRC) Encounter for long-term (current) use of insulin Unspecified essential hypertension (HRC) Unspecified essential hypertension Other and unspecified hyperlipidemia (HR C) Other and unspecified hyperlipidemia Tobacco use disorder (HRC) Tobacco use disorder documented in this encounter Care Teams Hospice Spiritual Care Coordinator Relationship Specialty Start Date End Date Gagandeep Hinojosa MD PCP - General 05/17/12 [facility] [place] [address] Vane Zarate Psychiatrist Psychiatry 03/22/12 documented as of this encounter
--- OUTSIDE RECORDS SUMMARY | 2022-02-14 17:09 | XMS_ITS | Encounter Summary ---
:1970 Author Organization [facility] Address [address] [place] [address] Care Team Providers Name Role Phone Gagandeep Hinojosa MD Primary Care Provider Encounter Details Date Type Department Care Team Description 05/27/2014 Notes/Orders [place] [facility] Gagandeep Hinojosa MD 1415 [facility] . [address] [place] [address] [place] [address] [phone] (Wo rk) Social History Tobacco Use Types Packs/Day Years Used Date Smoking Tobacco: Never Assessed Sex Assigned at Date Recorded Not on file documented as of this encounter Plan of Treatment Not on filedocumented as of this encounter Visit Diagnoses Not on filedocumented in this encounter Care Teams Chicken Catcher Relationship Specialty Start Date End Date Gagandeep Hinojosa MD PCP - General 05/17/12 1415 [facility] [place] [address] Vane Zarate Psychiatrsamantha Psychiatry 03/22/12 documented as of this encounter
--- OUTSIDE RECORDS SUMMARY | 2022-02-14 17:09 | XMS_ITS | Encounter Summary ---
:1970 Author Organization [facility] Address [address] [place] [address] Care Team Providers Name Role Phone Gagandeep Hinojosa MD Primary Care Provider Encounter Details Date Type Department Care Team Description 03/27/2015 Lab Visit [place] [facility] Type 2 diabetes mellitus, [address] [place] [address] Social History Tobacco Use Types Packs/Day Years Used Date Smoking Tobacco: Never Assessed Sex Assigned at Date Recorded Not on file documented as of this encounter Plan of Treatment Not on filedocumented as of this encounter Procedures Procedure Name Priority Date/Time Associated Diagnosis Comme nts HGB A1C Routine 03/27/2015 2:34 PM Type 2 diabetes Resul ts for this RECRUITMENT SPECIALIST mellitus, uncontrolled proce dure are in ([facility]) the results section. documented in this encounter Results (ABNORMAL) Hgb A1c (03/27/2015 2:34 PM RECRUITMENT SPECIALIST) athologist Signature HGB A1C 10.9 (H) 4.0 - 5.6 % HP CONVERSION Specimen Anatomical Collection Method Collection Time Receive d Time (Source) Location / / Volume Laterality 03/27/2015 2:34 PM 5 7:20 RECRUITMENT SPECIALIST PM RECRUITMENT SPECIALIST Narrative HP CONVERSION - 03/28/2015 10:19 AM RECRUITMENT SPECIALIST Performed at [place] [address] [place] [address] CLIA number [id number] Gagandeep Hinojosa MD LAB_1 Performing Organization Address City/State/ZIP Code Phon e Number HP CONVERSION documented in this encounter Visit Diagnoses Diagnosis Type 2 diabetes mellitus, uncontrolled Type II or unspecified type diabetes jasen litus without mention of complication, uncontrolled documented in this encounter Care Teams Horse Show Manager Relationship Specialty Start Date End Date Gagandeep Hinojosa MD PCP - General 05/17/12 1415 [facility] [place] Gerber [address] Vane Zarate Psychiatrist Psychiatry 03/22/12 documented as of this encounter
--- OUTSIDE RECORDS SUMMARY | 2022-02-14 17:09 | XMS_ITS | Encounter Summary ---
:1970 Author Organization [employer] Address [address] [place] [address] Care Team Providers Name Role Phone Gagandeep Michaud MD Primary Care Provider Reason for Visit Reason Comments Refill Encounter Details Date Type Department Care Team Description 03/29/2015 [facility] . 1415 [facility] [place] [address] [place] [address] [phone] (Wo rk) Social History Tobacco Use Types Packs/Day Years Used Date Smoking Tobacco: Never Assessed Sex Assigned at Date Recorded Not on file documented as of this encounter Nursing Notes Jackie Frederick CMA - 03/31/2015 8:38 AM CST Requested prescription was last renewed on 12/09/14 and sent to [facility] pharmacy with year supply. Requested Prescriptions Refused Prescriptions Disp Refills ??? lisinopril (PRINIVIL, ZESTRIL) 5 mg tablet [Pharmacy Med Name: LISINOPRIL 5MG TABLETS] 90 tablet3 Sig: TAKE 1 TABLET BY MOUTH EVERY DAY Refused By: JACKIE FREDERICK V Reason for Refusal: REQUEST ALREADY RESPONDED TO BY OTHER MEANS (E.G. PHONE OR FAX) T MANAGER Shani Blackman - 03/31/2015 8:38 AM CST [...] - K: 5.0mEq/L on 03/27/2015 Powered by [employer], Reference: [id number], 03/29/2015 10:43:13 AM Minerva GRANGER ([id number]) T MANAGER documented in this encounter Plan of Treatment Not on filedocumented as of this encounter Visit Diagnoses Not on filedocumented in this encounter Care Teams Rv Servicer Relationship Specialty Start Date End Date Gagandeep Michaud MD PCP - General 05/17/12 [facility]5 [facility] [place] [address] Vane Zarate Psychiatrist Psychiatry 03/22/12 documented as of this encounter
--- OUTSIDE RECORDS SUMMARY | 2022-02-14 17:09 | XMS_ITS | Encounter Summary ---
:1970 Author Organization [employer] Address [address] [place] [address] Care Team Providers Name Role Phone Gagandeep Michaud MD Primary Care Provider Reason for Visit Reason Comments Refill Encounter Details Date Type Department Care Team Description 05/01/2014 [facility]aud [facility]15 [facility] . 1415 [facility] [place] [address] [place] [address] [phone] (Wo rk) Social History Tobacco Use Types Packs/Day Years Used Date Smoking Tobacco: Never Assessed Sex Assigned at Date Recorded Not on file documented as of this encounter Nursing Notes Alessia Urias - 05/01/2014 1:03 PM CST Requested medication was last renewed on 01/16/14 and sent to [facility] pharmacy. Requested Prescriptions Refused Prescriptions Disp [...] - K: 4.6mEq/L on 01/16/2014 Powered by [employer], Reference: [id number], 05/01/2014 12:19:14 PM Minerva GRANGER REFILL ([id number]) documented in this encounter Plan of Treatment Not on filedocumented as of this encounter Visit Diagnoses Not on filedocumented in this encounter Care Teams Applied Anthropologist Relationship Specialty Start Date End Date Gagandeep Michaud MD PCP - General 05/17/12 [facility]5 [place] [id number] Vane Zarate Psychiatrist Psychiatry 03/22/12 documented as of this encounter
--- OUTSIDE RECORDS SUMMARY | 2022-02-14 17:09 | XMS_ITS | Encounter Summary ---
:1970 Author Organization formerly [facility] Address [address], [place] [address] Care Team Providers Name Role Phone Gagandeep Hinojosa MD Primary Care Provider Encounter Details Date Type Department Care Team Description 04/02/2015 Notes/Orders [place] [facility] Gagandeep Hinojosa MD [address] [facility] . [address] [place] [address] [place] [address] [phone] (Wo rk) Social History Tobacco Use Types Packs/Day Years Used Date Smoking Tobacco: Never Assessed Sex Assigned at Date Recorded Not on file documented as of this encounter Plan of Treatment Not on filedocumented as of this encounter Visit Diagnoses Not on filedocumented in this encounter Care Teams Lactation Consultant Relationship Specialty Start Date End Date Gagandeep Hinojosa MD PCP - General 05/17/12 1415 [facility] [place] [address] Vane Zarate Psychiatrsamantha Psychiatry 03/22/12 documented as of this encounter
--- OUTSIDE RECORDS SUMMARY | 2022-02-14 17:09 | XMS_ITS | Encounter Summary ---
:1970 Author Organization [employer] Address [address] [place] [address] Care Team Providers Name Role Phone Gagandeep Hinojosa MD Primary Care Provider Reason for Visit Reason Comments Medication Questions Encounter Details Date Type Department Care Team Description 07/22/2015 Telephone [facility] Gagandeep Hinojosa, Medic ation Questions Medicine 1415 [facility] . 1415 [place] [address] [place] [address] [phone] (Wo rk) Social History Tobacco Use Types [...] have been lower 100-150. To to address KLAYER Gloria Rodrigues - 07/22/2015 12:47 PM CDT [...] filedocumented in this encounter Care Teams Car Inspector Relationship Specialty Start Date End Date Gagandeep Hinojosa MD PCP - General 05/17/[address] [place], [place] [address] [address] Vane Zarate Psychiatrist Psychiatry 03/22/12 documented as of this encounter
--- OUTSIDE RECORDS SUMMARY | 2022-02-14 17:10 | XMS_ITS | Encounter Summary ---
:1970 Author Organization [employer] Address [address] [place] [address] Care Team Providers Name Role Phone Gagandeep Michaud MD Primary Care Provider Reason for Visit Reason Comments Follow-up Encounter Details Date Type Department Care Team Description 01/09/2014 Office Visit [facility] Vanessa Ram, Coronary atherosclerosis of unspecified type of vessel, [place] or graft (Primary Dx); [address] [place] ASHFarhan (arteriosclerotic heart disease); [address] [place], old; [place] [address] Blvd Hyperlipidemia LDL goal < 70; [phone] [place], [place] Type II or unspecified type diabetes mellitus without mention of complication, uncontrolled; [address] Tobacco use disorder; [phone] Hypertriglyceri demia; (Work) Tachycardia, unspecified Social History [...] 6 weeks. Please contact the lab at [phone] to schedule a lab appointment at [facility] after a 12 hour fast mid May. They will have the lab orders when you get there, so you are not responsible to bring a lab slip. 2. Call Keri FINCH [phone] if you develop abdominal pain, nausea or [...] Ram PA-C Service: (none) Author Type: Physician Electric Meter Repairer Apprentice Filed: 01/17/14 1538 Note Time: 01/10/14 1053 Status: Signed Heel Blacker: Vanessa Ram PA-C (Physician Electric Meter Repairer Apprentice) NAME: SHARLENE VARNER MR#: [id number] CSN: [id number] AUTHENTICATING CLINICIAN: Vanessa Ram PA-C CONFIRM #: [id number] LOC: 3205 CLINIC PROGRESS NOTE DATE OF VISIT: 01/09/2014 : 1970 CHIEF COMPLAINT: Coronary artery disease. Mr. Varner is a pleasant, 43-year-old gentleman who presents to the [facility]. He was recently discharged from [facility] on December 19, after presenting withprolonged [...] On his angiogram in 2012, he had anjo-dc-pvxtqkwn diffuse disease, specifically in the distal RCA [...] free samples. MEDICATIONS: Reviewed and updated in [employer]. Cardiac medications include aspirin 81 mg daily, simvastatin 80 mg daily, currently Coreg 6.25 mg daily, lisinopril 5 mg daily, omega-3 two capsules twice a day and Qtpujv54 mg p.r.n. ADVERSE DRUG REACTIONS/ALLERGIES: Reviewed and updated in [employer]. REVIEW OF SYSTEMS: A complete 12-point review [...] strong pedal pulses. Recent laboratory data at [place] on December 19: White blood cells 6.2, [...] of 60%. Normal left ventricular size with xizg-oe-kieayyje concentric left ventricular hypertrophy. No regional wall [...] a bare-metal stent in April 2011. b. Ihce-bw-sgrgltfa diffuse nonobstructive distal disease on coronary angiogram on October 27, 2012. Thepreviously deployed stent in the posterior descending branch of the right coronary artery was patent, with hqhg-vp-ctsxvhvm in-stent restenosis. This did not appear to [...] goal. 3. Hyperlipidemia. We reviewed the new [place] Heart [employer] guidelines that outlined that withhis [...] to do that. CC: VALERI NORRIS MD [address] [place] [address] GAGANDEEP MICHAUD MD [address] [place] [address] LJR:MEDQ C: CONFIRM #: [id number] documented in this encounter Plan of Treatment Not on filedocumented as of this encounter Visit Diagnoses Diagnosis Coronary atherosclerosis of unspecified type of vessel, [place] or graft (HRC) - Primary Coronary atherosclerosis of unspecified type of vessel, [place] or graft ASHD (arteriosclerotic heart disease) (H RC) Coronary atherosclerosis of unspecified type of vessel, [place] or graft [place], old (HRC) Old myocardial infarction Hyperlipidemia LDL goal < 70 (HRC) Other and unspecified hyperlipidemia Type II or unspecified type diabetes jasen litus without mention of complication, uncontrolled Tobacco use disorder (HRC) Tobacco use disorder Hypertriglyceridemia (HRC) Pure hyperglyceridemia Tachycardia, unspecified documented in this encounter Care Teams Lighting Fixtures Decorator Relationship Specialty Start Date End Date Gagandeep Michaud MD PCP - General 05/17/12 1415 [facility] [place] [address] Vane Zarate Psychiatrist Psychiatry 03/22/12 documented as of this encounter
--- OUTSIDE RECORDS SUMMARY | 2022-02-14 17:10 | XMS_ITS | Encounter Summary ---
:1970 Author Organization [facility] Address [address] [place] [address] Care Team Providers Name Role Phone Gagandeep Michaud MD Primary Care Provider Reason for Visit Reason Comments Refill Encounter Details Date Type Department Care Team Description 08/03/2013 Refill [facility] Gagandeep Michaud MD [facility] . 1415 [facility] [place] [address] [place] [address] [phone] (Wo rk) Social History Tobacco Use Types [...] filedocumented in this encounter Care Teams Motor Vehicle Lecturer Relationship Specialty Start Date End Date Gagandeep Michaud MD PCP - General 05/17/12 1415 [facility] [place] [address] Vane Zarate Psychiatrist Psychiatry 03/22/12 documented as of this encounter
--- OUTSIDE RECORDS SUMMARY | 2022-02-14 17:10 | XMS_ITS | Encounter Summary ---
:1970 Author Organization [employer] Address [address] [place] [address] Care Team Providers Name Role Phone Gagandeep Hinojosa MD Primary Care Provider Encounter Details Date Type Department Care Team Description 07/13/2013 Lab Visit [place] [facility] Type II or unspecified type diabetes mellitus without mention of complication, uncontrolled; [address] Coronary atherosclerosis of unspecified type of vessel, [place] or graft [place] [address] Social History Tobacco Use Types Packs/Day Years [...] Coronary atherosclerosis of unspecified type of vessel, [place] or graft (HR) LDL CHOLESTEROL, Routine 07/13/2013 [...] Coronary atherosclerosis of unspecified type of vessel, [place] or graft (HRC) documented in this encounter [...] MD LAB_1 Performing Organization Address [facility] Phon e Number HP CONVERSION LDL Cholesterol, Direct Measured (07/13/2013 10:39 AM CDT) athologist Signature LDL Direct 123 0 - 130 HP CONVERSION mg/dL Specimen Anatomical Collection Method Collection Time Receive d Time (Source) Location / / Volume Laterality 07/13/2013 10:39 07/13/2013 2:48 AM CDT PM CDT Narrative HP CONVERSION - 07/13/2013 6:53 PM CDT Performed at [facility], [address] [place] [address] Gagandeep Hinojosa MD LAB_1 Performing Organization Address City/[facility] Code Phon e Number HP CONVERSION (ABNORMAL) Hgb A1c (07/13/2013 10:39 AM CDT) athologist Signature HGB A1C 10.4 (H) 4.0 - 5.6 % HP CONVERSION Specimen Anatomical Collection Method Collection Time Receive d Time (Source) Location / / Volume Laterality 07/13/2013 10:39 07/13/2013 4:10 AM CDT PM CDT Gagandeep Hinojosa MD LAB_1 Performing Organization Address City/[facility] Phon e Number HP CONVERSION (ABNORMAL) Lipid Panel and Direct LDL(If Needed) (07/13/2013 10:39 AM CDT) [facility] getbetter! Method Time Signature Cholesterol 197 0 - [...] - 07/13/2013 5:00 PM CDT Performed at [facility], [address] [place] [address] Gagandeep Hinojosa MD LAB_1 Performing Organization Address City/[facility] Phon e Number HP CONVERSION AST (07/13/2013 10:39 AM CDT) [facility] getbetter! Method Time Signature Aspartate 25 0 - 45 HP CONVERSION Aminotransferase U/L Specimen Anatomical Collection Method Collection Time Receive d Time (Source) Location / / Volume Laterality 07/13/2013 10:39 07/13/2013 2:48 AM CDT PM CDT Narrative HP CONVERSION - 07/13/2013 5:00 PM CDT Performed at [facility], [address] [place] [address] Gagandeep Hinojosa MD LAB_1 Performing Organization Address City/[facility] Phon e Number HP CONVERSION documented in this encounter Visit Diagnoses Diagnosis Type II or unspecified type diabetes jasen litus without mention of complication, uncontrolled Coronary atherosclerosis of unspecified type of vessel, [place] or graft (HRC) Coronary atherosclerosis of unspecified type of vessel, ely [place] or graft documented in this encounter Care Teams Risk Management Consultant Relationship Specialty Start Date End Date Gagandeep Hinojosa MD PCP - General 05/17/12 [facility] [place] [address] Vane Zarate Psychiatrist Psychiatry 03/22/12 documented as of this encounter
--- OUTSIDE RECORDS SUMMARY | 2022-02-14 17:10 | XMS_ITS | Encounter Summary ---
:1970 Author Organization [facility] Address [address] [place] [address] Care Team Providers Name Role Phone Gagandeep Hinojosa MD Primary Care Provider Reason for Referral Specialty Diagnoses / Procedures Referred By Contact Refer red To Contact Gagandeep Hinojosa MD [address] [place] [address] Referral ID Status Reason Start Date Expiration Date Visits Requ ested Visits Authorized Reason for Visit Reason Comments Diabetes Encounter Details Date Type Department Care Team Description 01/16/2014 Office Visit Gagandeep Storm (Primary Dx); Romario Rubio MD Type II or unspecified type diabetes jasen litus without mention of complication, uncontrolled; [address] [facility] Need for influenza vaccinati on; [place] [address] [address] Proteinuria; [phone] [place] VIGIL [phone] assisted current use of insulin; [phone] Long-term insul in use in type 2 [...] Associated Orders ICD-9-CM 1. Financial difficulties V60.2 [facility] Care Coordination Consult (AMB) 2. Type II or unspecified type diabetes mellitus without mention of complication, uncontrolled (HCC)250.02 lisinopril (PRINIVIL, ZESTRIL) 5 mg tablet metFORMIN (GLUCOPHAGE) 500 mg tablet insulin NPH (NOVOLIN N) 100 unit/mL Susp insulin regular (NOVOLIN R) 100 unit/mL injection Chronic 3. Need for influenza vaccination V04.81 Fluarix Influenza QIV (36+ mos) PLAN: 1. refer to health detentionhome care aide. Add metformin Diabetes measures: A1c Due: 3 [...] unspecified documented in this encounter Care Teams [employer] Retailer Sales Consultant Relationship Specialty Start Date End Date Gagandeep Hinojosa MD PCP - General 05/17/12 1415 [place] [address] Vane Zarate Psychiatrist Psychiatry 03/22/12 documented as of this encounter
--- OUTSIDE RECORDS SUMMARY | 2022-02-14 17:10 | XMS_ITS | Encounter Summary ---
:1970 Author Organization [employer] Address [address] [address] Care Team Providers Name Role Phone Gagandeep Hinojosa MD Primary Care Provider Encounter Details Date Type Department Care Team Description 11/21/2013 Hospital Encounter Heart & Vascular Chest pain, unspecified (Primary Dx); Center Nuclear ASHD (arterio sclerotic heart disease) Cardiology [facility] [place] [address] Social History Tobacco Use Types [...] Coronary atherosclerosis of unspecified type of vessel, wales or graft documented in this encounter Care Teams Senior Financial Analyst Relationship Specialty Start Date End Date Gagandeep Hinojosa MD PCP - General 05/17/[address] [facility] [place] Gerber [id number] Vane Zarate Psychiatrsamantha Psychiatry 03/22/12 documented as of this encounter
--- OUTSIDE RECORDS SUMMARY | 2022-02-14 17:10 | XMS_ITS | Encounter Summary ---
:1970 Author Organization [employer] Address [address], [place] [address] Care Team Providers Name Role Phone Gagandeep Hinojosa MD Primary Care Provider Reason for Visit Reason Comments RESULTS, TEST Patient Calling Back Encounter Details Date Type Department Care Team Description 11/27/2013 Telephone [facility] Gagandeep Hinojosa RESUL TS, TEST; Patient Medicine MD Calling Back 1415 [facility] . 1415 [place] [address] [place], [place] [id number] (Wo rk) Social History Tobacco Use Types [...] PM CDT Patient requesting results. competed at [facility] on 11/27/13 Show images for ECHO [...] and where was test done? 11/27/13 at [place] Patient has questions on the results and if he should have any work restrictions. Please advise. Who ordered the test? Gagandeep Hinojosa MD documented in this encounter Plan of Treatment Not on filedocumented as of this encounter Visit Diagnoses Not on filedocumented in this encounter Care Teams Community Recreation Coordinator Relationship Specialty Start Date End Date Gagandeep Hinojosa MD PCP - General 05/17/12 1415 [place] [address] Vane Zarate Psychiatrist Psychiatry 03/22/12 documented as of this encounter
--- OUTSIDE RECORDS SUMMARY | 2022-02-14 17:10 | XMS_ITS | Encounter Summary ---
:[address] [facility] Address [address], [place] [address] Care Team Providers Name Role Phone Gagandeep Hinojosa MD Primary Care Provider Reason for Visit Reason Comments Missed Appointment Encounter Details Date Type Department Care Team Description 01/03/2014 Telephone [facility] Vanessa Ram PA-C Missed Appointment 1515 [facility] . [address] [place] [address] [place], [place] [phone] (Wo rk) Social History Tobacco Use Types [...] filedocumented in this encounter Care Teams Waste Collector Relationship Specialty Start Date End Date Gagandeep Hinojosa MD PCP - General 05/17/12 1415 [place], [place] [id number] Vane Zarate Psychiatrist Psychiatry 03/22/12 documented as of this encounter
--- OUTSIDE RECORDS SUMMARY | 2022-02-14 17:10 | XMS_ITS | Encounter Summary ---
:1970 Author Organization [employer] Address [address], [place] [address] Care Team Providers Name Role Phone Gagandeep Hinojosa MD Primary Care Provider Encounter Details Date Type Department Care Team Description 11/27/2013 Hospital Encounter Heart & Vascular Other nonspecific Center Echocardiogra m abnormal cardiovascular [address] system function study [place], [place] (Primar y Dx) [address] Social History Tobacco Use Types Packs/Day Years [...] Primary documented in this encounter Care Teams Graphics Programmer Relationship Specialty Start Date End Date Gagandeep Hinojosa MD PCP - General 05/17/[address] [place], [place] [address] Rodriguez [id number] Vane Zarate Psychiatrist Psychiatry 03/22/12 documented as of this encounter
--- OUTSIDE RECORDS SUMMARY | 2022-02-14 17:10 | XMS_ITS | Encounter Summary ---
:1970 Author Organization [employer] Address [address] [place] [address] Care Team Providers Name Role Phone Gagandeep Hinojosa MD Primary Care Provider Reason for Visit Reason Comments Diabetes Encounter Details Date Type Department Care Team Description 07/20/2013 Office Visit Gagandeep Storm Type II or unspecified type diabetes mellitus without mention of complication, uncontrolled (Primary Dx); Romario Rubio MD Hyperlipidemia LDL goal < 70; [address] [place] 1415 [facility] Onychomy cosis; Ave. Ave Tobacco abuse; [place] [address] [place] pen[facility] current use of ins ulin; [phone] [address] Long-term insulin use in type 2 diabetes ; [phone] Unspecified ess ential hypertension; (Work) Other and unspecified hyperlipidemia; [phone] Tobacco use dis order; (Fax) Obesity, unspec [...] - 07/21/2013 12:37 AM CDT [facility] [phone] My Diabetes at a Glance Aspirin Use [...] nail Tobacco abuse (HRC) Tobacco use disorder penitentiary current use of insulin (HRC) Encounter for [...] unspecified documented in this encounter Care Teams Central Sterilization Technician Relationship Specialty Start Date End Date Gagandeep Hinojosa MD PCP - General 05/17/12 [facility] [address] Vane Zarate Psychiatrist Psychiatry 03/22/12 documented as of this encounter
--- OUTSIDE RECORDS SUMMARY | 2022-02-14 17:10 | XMS_ITS | Encounter Summary ---
:1970 Author Organization [employer] Address [address] [address] Care Team Providers Name Role Phone Gagandeep Hinojosa MD Primary Care Provider Encounter Details Date Type Department Care Team Description 04/10/2013 Hospital Encounter Heart & Vascular Chest pain, unspecified Center Nuclear (Primary Dx) Cardiology [address] [facility] [place] [address] Social History Tobacco Use Types [...] Chest pain, Resul ts for this STUDY DIRECTOR OF FEDERAL SALES unspecified procedure are i n the results section. documented in this encounter Results Outreach Nuclear Study (04/10/2013 4:12 PM DIRECTOR OF FEDERAL SALES) Specimen (Source) Anatomical Location Collection Method / Collectio n Time Received Time / Laterality Volume Narrative HP CONVERSION - 04/10/2013 4:12 PM DIRECTOR OF FEDERAL SALES See results in [employer]. Silverio Cabrera MD PN CARDIAC SERVICES ORDERABL ES Performing Organization Address City/State/ZIP Code Phon e Number HP CONVERSION documented in this encounter Visit Diagnoses Diagnosis Chest pain, unspecified - Primary documented in this encounter Care Teams Field Operations Supervisor Relationship Specialty Start Date End Date Gagandeep Hinojosa MD PCP - General 05/17/12 1415 [facility] [place] [address] Vane Zarate Psychiatrist Psychiatry 03/22/12 documented as of this encounter
--- OUTSIDE RECORDS SUMMARY | 2022-02-14 17:10 | XMS_ITS | Encounter Summary ---
:1970 Author Organization [facility] Address [address] [place] [address] Care Team Providers Name Role Phone Gagandeep Hinojosa MD Primary Care Provider Encounter Details Date Type Department Care Team Description 01/16/2014 Lab Visit [facility] Hypertriglyceridemia; [address] Tachycardia, unspecified [place] Vig[place] 250999 Social History Tobacco Use Types Packs/Day Years [...] Vanessa Ram PA-C LAB_1 Performing Organization Address City/[facility] Code Phon e Number HP CONVERSION Lipase (01/16/2014 10:14 AM CDT) athologist Signature Lipase 47 5 - 70 U/L HP CONVERSION Specimen Anatomical Collection Method Collection Time Receive d Time (Source) Location / / Volume Laterality 01/16/2014 10:14 01/16/2014 AM CDT 11:49 AM CDT Narrative HP CONVERSION - 01/16/2014 2:11 PM CDT Performed at [facility], [address] [place] [address] Vanessa Ram PA-C LAB_1 Performing Organization Address [facility] Phon e Number HP CONVERSION Amylase (01/16/2014 10:14 AM CDT) athologist Signature Amylase Serum 48 25 - 115 HP CONVERSION U/L Specimen Anatomical Collection Method Collection Time Receive d Time (Source) Location / / Volume Laterality 01/16/2014 10:14 01/16/2014 AM CDT 11:49 AM CDT Narrative HP CONVERSION - 01/16/2014 2:11 [place] [address] Vanessa Ram PA-C LAB_1 Performing Organization Address [facility] Phon e Number HP CONVERSION (ABNORMAL) Triglycerides (> 12 Hr. Fast) (01/16/2014 10:14 AM CDT) athologist Signature Triglycerides 614 (H) 0 - 149 HP CONVERSION mg/dL Specimen Anatomical Collection Method Collection Time Receive d Time (Source) Location / / Volume Laterality 01/16/2014 10:14 01/16/2014 AM CDT 11:49 AM CDT Narrative HP CONVERSION - 01/16/2014 2:11 PM CDT Performed at [facility], [address] [place] [address] Vanessa Ram PA-C LAB_1 Performing Organization Address [facility] Phon e Number HP CONVERSION documented in this encounter Visit Diagnoses Diagnosis Hypertriglyceridemia (HRC) Pure hyperglyceridemia Tachycardia, unspecified documented in this encounter Care Teams Coat Joiner Lockstitch Relationship Specialty Start Date End Date Gagandeep Hinojosa MD PCP - General 1/23/13 1415 [facility] [place] [address] Vane Zarate Psychiatrist Psychiatry 03/22/12 documented as of this encounter
--- OUTSIDE RECORDS SUMMARY | 2022-02-14 17:10 | XMS_ITS | Encounter Summary ---
:1970 Author Organization [facility] Address [address] [place] [address] Care Team Providers Name Role Phone Gagandeep Hinojosa MD Primary Care Provider Reason for Visit Reason Comments Wheezing Encounter Details Date Type Department Care Team Description 10/19/2013 Nurse Triage [facility] Gagandeep Hinojosa MD Wheezing [facility] [facility] [address] [facility] [place] [address] [place] [address] [phone] (Wo rk) Social History Tobacco Use Types Packs/Day Years Used Date Smoking Tobacco: Never Assessed Sex Assigned at Date Recorded Not on file documented as of this encounter Nursing Notes Marci Oliveira, RN - 10/19/2013 2:47 PM CDT Protocol: BREATHING [id number] Affirmative: Wheezing can be heard across the [...] filedocumented in this encounter Care Teams Sole Leather Cutting Machine Operator Relationship Specialty Start Date End Date Gagandeep Hinojosa MD PCP - General 05/17/[address] [place] [address] Vane Zarate Psychiatrist Psychiatry 03/22/12 documented as of this encounter
--- OUTSIDE RECORDS SUMMARY | 2022-02-14 17:10 | XMS_ITS | Encounter Summary ---
:1970 Author Organization [facility] Address [address] [place] [address] Care Team Providers Name Role Phone Gagandeep Hinojosa MD Primary Care Provider Reason for Visit Reason Comments Patient Calling Back Encounter Details Date Type Department Care Team Description 11/23/2013 Telephone [facility] Gagandeep Hinojosa, Anastasia nt Calling Back Medicine 1415 [facility] . 1415 [place] [address] [place] [address] [phone] (Wo rk) Social History Tobacco Use Types [...] that he is returning a call from [facility] from around 10 am today.He is aware of his Echocardiogram at [facility] on 11/27 at 3:[address]. To [facility] for review. An Maldonado - 11/23/2013 1:37 PM CDT Patient says he returning a call from the [facility] from [facility] this morning. documented in this encounter Plan of Treatment Not on filedocumented as of this encounter Visit Diagnoses Not on filedocumented in this encounter Care Teams Gas Usage Meter Clerk Relationship Specialty Start Date End Date Gagandeep Hinojosa MD PCP - General 05/17/[address] [place] [address] [place] [address] Vane Zarate Psychiatrist Psychiatry 03/22/12 documented as of this encounter
--- OUTSIDE RECORDS SUMMARY | 2022-02-14 17:10 | XMS_ITS | Encounter Summary ---
:1970 Author Organization [employer] Address [address] [place] [address] Care Team Providers Name Role Phone Gagandeep Hinojosa MD Primary Care Provider Reason for Visit Reason Comments Appt. Needed Encounter Details Date Type Department Care Team Description 07/12/2013 Telephone [employer] [facility] Gagandeep Hinojosa MD Appt. Needed 1415 [facility] . 1415 [place] [address] [place] [address] [phone] (Wo rk) Social History Tobacco Use Types Packs/Day Years Used Date Smoking Tobacco: Never Assessed Sex Assigned at Date Recorded Not on file documented as of this encounter Nursing Notes Cordelia Jerome - 07/12/2013 4:29 PM CDT 1st call LM to call [phone] to schedule overdue A1c/FL and diabetes check with Dr Hinojosa (due May). OIE documented in this encounter Plan of Treatment Not on filedocumented as of this encounter Visit Diagnoses Not on filedocumented in this encounter Care Teams Orthopedic Physician Relationship Specialty Start Date End Date Gagandeep Hinojosa MD PCP - General 05/17/12 1415 [facility] [place], [place] [address] Vane Zarate Psychiatrist Psychiatry 03/22/12 documented as of this encounter
--- OUTSIDE RECORDS SUMMARY | 2022-02-14 17:10 | XMS_ITS | Encounter Summary ---
:1970 Author Organization [employer] Address [address] [place] [address] Care Team Providers Name Role Phone Gagandeep Hinojosa MD Primary Care Provider Reason for Visit Reason Comments Other Encounter Details Date Type Department Care Team Description 11/22/2013 Telephone [facility] Gagandeep Hinojosa MD Other 1415 [facility] . 1415 [place] [address] [place] [address] [phone] (Wo rk) Social History Tobacco Use Types Packs/Day Years Used Date Smoking Tobacco: Never Assessed Sex Assigned at Date Recorded Not on file documented as of this encounter Nursing Notes Jackeline Al - 11/22/2013 11:47 AM CDT Timur is scheduled at [facility] on November 27 at 3:00. Maximilian [...] on filedocumented in this encounter Care Teams Voip Technician Relationship Specialty Start Date End Date Gagandeep Hinojosa MD PCP - General 05/17/12 [facility] [place] [address] Vane Zarate Psychiatrist Psychiatry 03/22/12 documented as of this encounter
--- OUTSIDE RECORDS SUMMARY | 2022-02-14 17:10 | XMS_ITS | Encounter Summary ---
:1970 Author Organization [facility] Address [address] [place] [address] Care Team Providers Name Role Phone Gagandeep Hinojosa MD Primary Care Provider Reason for Visit Reason Comments Diabetes Encounter Details Date Type Department Care Team Description 11/16/2013 Notes/Orders [facility] Gagandeep Hinojosa MD 1415 [facility] . 1415 [place] [address] [place] [address] [phone] (Wo rk) Social History Tobacco Use Types Packs/Day Years Used Date Smoking Tobacco: Never Assessed Sex Assigned at Date Recorded Not on file documented as of this encounter Plan of Treatment Not on filedocumented as of this encounter Visit Diagnoses Not on filedocumented in this encounter Care Teams Business Analyst Intern Relationship Specialty Start Date End Date Gagandeep Hinojosa MD PCP - General 05/17/12 1415 [facility] [address] Vane Zarate Psychiatrist Psychiatry 03/22/12 documented as of this encounter
--- OUTSIDE RECORDS SUMMARY | 2022-02-14 17:10 | XMS_ITS | Encounter Summary ---
:1970 Author Organization [employer] Address [address] [facility] [place] [place] [address] Care Team Providers Name Role Phone Gagandeep Hinojosa MD Primary Care Provider Reason for Visit Reason Comments Medication Questions Encounter Details Date Type Department Care Team Description 03/16/2013 Telephone [facility] Gagandeep Hinojosa, Medic ation Questions Medicine 1415 [facility] . 1415 [facility] [place] [address] [place] [address] [phone] (Wo rk) Social History Tobacco Use Types Packs/Day Years Used Date Smoking Tobacco: Never Assessed Sex Assigned at Date Recorded Not on file documented as of this encounter Nursing Notes Judy Pittman RN - 03/20/2013 9:56 AM CST Storage Consultant - Phone Call Reason for call: Care [...] cover his insulin when [facility]. Rustam agreed. Shared plan: Lev will contact [facility] pharmacy and cover the cost of Rustam's insulin for another month. I provided Rustam with Lev's contact information and he will call her in April to develop a budget for 2013. Rustam verbalized understanding and agreed with plan of care and follow up. E SLITTER AND INSPECTOR Judy Pittman RN - 03/19/2013 4:48 PM CST Storage Consultant - Phone Call Reason for call: Care [...] in the morning. I contacted Zoie Serrano, uniforms sales representative from [employer]. Zoie states she does not carry samples for the analog insulins. Per [id number], Rustam and his are over income for [...] will take to resolve. he states understanding E SLITTER AND INSPECTOR Verena Padilla - 03/16/2013 4:36 PM CST [...] waiting for this to be addressed 03/19 E SLITTER AND INSPECTOR Ajit Van - 03/16/2013 3:20 PM CST Patient calling about refill on medication but is inquiring if the [employer] can help him out. documented in this encounter Plan of Treatment Not on filedocumented as of this encounter Visit Diagnoses Not on filedocumented in this encounter Care Teams Back End Developer Relationship Specialty Start Date End Date Gagandeep Hinojosa MD PCP - General 05/17/12 [address] [place] [address] Vane Zarate Psychiatrist Psychiatry 03/22/12 documented as of this encounter
--- OUTSIDE RECORDS SUMMARY | 2022-02-14 17:10 | XMS_ITS | Encounter Summary ---
:1970 Author Organization [employer] Address [address] [place] [address] Care Team Providers Name Role Phone Gagandeep Hinojosa MD Primary Care Provider Reason for Visit Reason Comments LAB RESULTS Encounter Details Date Type Department Care Team Description 07/18/2013 Telephone [facility] Gagandeep Hinojosa MD LAB RESULTS 1415 [facility] . 1415 [facility] [place] [address] [place] [address] [phone] (Wo rk) Social History Tobacco Use Types [...] on filedocumented in this encounter Care Teams Underwriting Consultant Relationship Specialty Start Date End Date Gagandeep Hinojosa MD PCP - General 05/17/[address] [facility] [place] [address] Vane Zarate Psychiatrist Psychiatry 03/22/12 documented as of this encounter
--- OUTSIDE RECORDS SUMMARY | 2022-02-14 17:11 | XMS_ITS | Encounter Summary ---
:1970 Author Organization [employer] Address [address] [place] [address] Care Team Providers Name Role Phone Gagandeep Hinojosa MD Primary Care Provider Encounter Details Date Type Department Care Team Description 02/14/2013 Lab Visit [facility] Coronary atherosclerosis of unspecified type of vessel, [place] or graft; [address] Type II or unspecified type diabetes mellitus without mention of complication, uncontrolled [facility] [place] [address] Social History Tobacco Use Types Packs/Day Years [...] unspecified type of the resu lts vessel, [place] or graft sect ion. (HRC) Type II [...] (ABNORMAL) Microalb/Creat Ratio (02/14/2013 11:47 AM CDT) [facility] gist Method Time Signature Microalbumin 108.0 [...] - 02/14/2013 6:19 PM CDT Performed at [facility], [address] [place] [address] Gagandeep Hinojosa MD LAB_1 Performing Organization Address City/[facility]/ZIP Code Phon e Number HP [...] Direct LDL(If Needed) (02/14/2013 10:57 AM CDT) [facility] gist Method Time Signature Cholesterol 216 [...] - 02/14/2013 6:03 PM CDT Performed at [facility], [address] [facility], [place] [address] Gagandeep Hinojosa MD LAB_1 Performing Organization Address City/State/ZIP Code Phon e Number HP CONVERSION documented in this encounter Visit Diagnoses Diagnosis Coronary atherosclerosis of unspecified type of vessel, [place] or graft (HRC) Coronary atherosclerosis of unspecified type of vessel, [place] or graft Type II or unspecified type diabetes jasen litus without mention of complication, uncontrolled documented in this encounter Care Teams Bait Maker Relationship Specialty Start Date End Date Gagandeep Hinojosa MD PCP - General 05/17/12 1415 [facility] [place] [place] [address] Vane Zarate Psychiatrist Psychiatry 03/22/12 documented as of this encounter
--- OUTSIDE RECORDS SUMMARY | 2022-02-14 17:11 | XMS_ITS | Encounter Summary ---
:1970 Author Organization [facility] Address [address], [place] [address] Care Team Providers Name Role Phone Gagandeep Hinojosa MD Primary Care Provider Encounter Details Date Type Department Care Team Description 10/25/2012 - Hospital Encounter [facility] 3S Monica Valle, MBBS [address] [place], [place] [id number] ACS (acute coronary 10/27/2012 Med-Coronary Zoie Khanna, DO [address] [place], [place] [address] syndrome) (Primary Outpatient 3S [facility] Dx) [address] [place], [place] [address] Social History Tobacco Use Types Packs/Day Years [...] Filed: 11/01/121924 Note Time: 10/27/121657 Status: Signed Grinding Wheel Facer: REINA Wharton (Physician) NAME: SHARLENE KRISHNAMURTHY MR#: [id number] CSN: [id number] AUTHENTICATING CLINICIAN: REINA Cool CONFIRM #: [id number] LOC: 1 HOSPITAL DISCHARGE SUMMARY DATE OF [...] at the bedside. [place]:BREANNA C: CONFIRM #: [id number] documented in this encounter Medications at Time [...] this encounter Progress Notes Vanessa Yee, HORACIO, STORE ASSISTANT - 10/27/2012 4:53 PM CDT DISCHARGE O: [...] Direct 115 06/04/2011 1302 Patient Interview/Diet History: [place]/peanut butter for breakfast, sandwich or burger for [...] ADMIT O: Admitted patient via cart from [facility] to bed # 3STH/3STH-05. D: Patient [...] no imaging then. 2. ASHD Old inferior MO 3.5 x 16 bare metal stent RCA Apr 2011 Bounce-back angio Apr 2011--stent patent, mid-PDA disease, modest LAD disease, LVEF 60 Normal nuc scan OCT 2011. [facility] CT cor angio showed 40-70% mid [...] signed by Estevan Taylor MD at 10/26/12 4797 Author: Estevan Taylor MD Service: (none) Author Type: Physician Filed: 10/26/12 9028 Note Time: 10/26/12 1256 Status: Signed Grinding Wheel Facer: Estevan Taylor MD (Physician) NAME: SHARLENE KRISHNAMURTHY MR#: [id number] CSN: [id number] AUTHENTICATING CLINICIAN: Estevan Taylor MD CONFIRM #: [id number] LOC: 1 HOSPITAL CONSULTATION DATE OF CONSULTATION: [...] stress nuclear scan. He was hospitalized in [place] in early September with chest pain and diabetes out of control. He had stopped taking his insulin because he could not afford it. He had no cardiac findings and was discharged without further cardiac evaluation, although plans were made for an outpatient stress echo. Yesterday, he again presented to the [place] [facility] with chest pain. The patient [...] then went to the emergency room in [place]. He was still having pain when he [...] descending plaque by CT angiogram yesterday at [facility]. 3. Bipolar disorder, disabled because of this. 4. Still smoking. 5. Diabetes on insulin. Poor control. 6. Hypertension. 7. Hyperlipidemia. 8. Obesity. 9. Finances are problem. Sometimes he cannot afford medicines. Coverage is okay for now, he says. SUGGESTION: 1. Coronary angiogram. I am guessing this will not show anything of significance. 2. Stop smoking. 3. He could be transferred to [facility]. CC: GAGANDEEP HINOJOSA MD [address] [facility] [place] PEREZ [address] [facility]:BREANNA C: CONFIRM #: [id number] documented in this encounter OR Notes H&P - Zoie Khanna, - 10/26/2012 1:54 AM CDT HISTORY AND PHYSICAL Date of service 10/25/2012 Primary provider: Gagandeep Hinojosa HISTORY OF PRESENT ILLNESS: Chief complaint chest pain Medical records reviewed Pt is a 42 year old male with h/o CAD s/p BMS to the RCA 04/2011, uncontrolled diabetes mellitus and bipolar d/o He presented to [facility] today complaining of sudden onset of [...] diabetes Prior to admission medications reviewed in [facility] - see EMR for details. Review [...] Code Status - full Zoie Khanna DO [facility] Hospitalist documented in this encounter Miscellaneous [...] - 10/26/12 0810 325 mg Given Dorie Barreot RN Oral - 10/26/12 0811 - - [...] had heparin infusing since admission; started at [facility] running at 15.2 - heparin (porcine) 1,000 [...] Intravenous - 10/25/12 2332 pt transfer from [facility] with nitro infusing. Verified rate/dose/concentration. - [...] Zoie Khanna DO LAB_1 Performing Organization Address City/[facility] Phon e Number HP CONVERSION BEDSIDE GLUCOSE MONITOR (10/27/2012 11:26 AM CDT) P athologist Signature Bedside Blood 182 mg/dL HP CONVERSION Glucose Test Specimen Anatomical Collection Method Collection Time Receive d Time (Source) Location / / Volume Laterality 10/27/2012 11:26 11/10/2012 AM CDT 12:30 PM CDT Zoie Khanna DO LAB_1 Performing Organization Address [facility] Phon e Number HP CONVERSION Cardiac Cath Procedure (10/27/2012 8:39 AM CDT) Specimen (Source) Anatomical Collection Method Collection Time Re ceived Time Location / / Volume Laterality 10/27/2012 8:39 AM CDT Narrative PN CENTRICITY - 10/27/2012 8:39 AM CDT [address] [place] [address] SHARLENE T TELLY ?? [id number] Cardiovascular Catheterization Comprehen sive Report : 1970 Age: 42 years Gender: Male Study date: 10/27/2012 Test time: 10:03 - 10:25 Fluoro time: 8.5 min PPH Staff: ??Wendy Cali RN Diagnostic Ingot Buggy Operator: ??FABIAN GUTIERREZ MD House Player: ??Brandon Ta Scrub: ??Inderjit Larson RN Monitor: ??Екатерина Khalil CVT X-ray Tech: ??Charles Washington RT Ordering Physician: ??Franck TAYLOR History and indications INDICATIONS ?? -- ??Angina/MO: atypical chest pain. -- ??Coronary artery disease. Prior righ t coronary artery stent placement. Procedures PROCEDURES PERFORMED: -- ??Right coronary angiography. -- ??Left coronary angiography. NARRATIVE: The risks and alternatives of the procedures and conscious sedation were explained to the patient and informed consent was obtained. The patie nt was brought to the drop crew laborer and placed on the table. Th [...] CARDIAC CATH ORDERABLES Performing Organization Address [facility] Phon e Number PN CENTRICITY BEDSIDE GLUCOSE MONITOR (10/27/2012 7:52 AM CDT) athologist Signature Bedside Blood 223 mg/dL HP CONVERSION Glucose Test Specimen Anatomical Collection Method Collection Time Receive d Time (Source) Location / / Volume Laterality 10/27/2012 7:52 AM 3 8:05 CDT AM CDT Monica [place] LAB_1 Performing Organization Address [facility] Phon e Number HP CONVERSION Potassium (10/27/2012 6:12 AM CDT) athologist Signature Potassium 4.2 3.5 - 5.2 HP CONVERSION mEq/L Specimen Anatomical Collection Method Collection Time Receive d Time (Source) Location / / Volume Laterality 10/27/2012 6:12 AM 3 6:21 CDT AM CDT Zoie Cheney Jey SAL LAB_1 Performing Organization Address [facility] Phon e Number HP CONVERSION (ABNORMAL) APTT (Activated Partial Thromboplastin Time) (10/27/2012 6:11 AM CDT) [facility] gist Method Time Signature Partial 58.5 (H) 25.0 - HP CONVERSION Thromboplastin 38.0 sec Time Specimen Anatomical Collection Method Collection Time Receive d Time (Source) Location / / Volume Laterality 10/27/2012 6:11 AM 3 6:21 CDT AM CDT Zoie Khanna DO LAB_1 Performing Organization Address [facility] Phon e Number HP CONVERSION BEDSIDE GLUCOSE MONITOR (10/26/2012 9:30 PM CDT) athologist Signature Bedside Blood 189 mg/dL HP CONVERSION Glucose Test Specimen Anatomical Collection Method Collection Time Receive d Time (Source) Location / / Volume Laterality 10/26/2012 9:30 PM 3 9:40 CDT PM CDT Monica [place] LAB_1 Performing Organization Address [facility] Phon e Number HP CONVERSION BEDSIDE GLUCOSE MONITOR (10/26/2012 5:03 PM CDT) P athologist Signature Bedside Blood 181 mg/dL HP CONVERSION Glucose Test Specimen Anatomical Collection Method Collection Time Receive d Time (Source) Location / / Volume Laterality 10/26/2012 5:03 PM 3 5:05 CDT PM CDT Monica Valle [facility] LAB_1 Performing Organization Address [facility] Phon e Number HP CONVERSION BEDSIDE GLUCOSE MONITOR (10/26/2012 11:52 AM CDT) P athologist Signature Bedside Blood 149 mg/dL HP CONVERSION Glucose Test Specimen Anatomical Collection Method Collection Time Receive d Time (Source) Location / / Volume Laterality 10/26/2012 11:52 10/26/2012 AM CDT 12:00 PM CDT Zoie Khnana LAB_1 Performing Organization Address [facility] Phon e Number HP CONVERSION ECG 12 Lead Inpatient (10/26/2012 10:17 AM CDT) P athologist Signature Ventricular Rate 79 BPM MUSE GHP Atrial Rate 79 BPM MUSE GHP P-R Interval 148 ms MUSE GHP QRS Duration 94 ms MUSE GHP QT 380 ms MUSE GHP QTc 435 ms MUSE GHP P [place] 40 degrees MUSE GHP R [place] 11 degrees MUSE GHP T [place] 27 degrees MUSE GHP Specimen (Source) Anatomical Collection Method Collection Time Re ceived Time Location / / Volume Laterality 10/26/2012 10:17 AM CDT Narrative MUSE GHP - 07/29/2019 1:56 PM CDT Sinus rhythm Normal ECG When compared with ECG of 25-OCT-2012 19 :36, No significant change was found Confirmed by HAL HARGROVE ([id number]), scientific publications editor PEPPER HERNANDEZ ([id number]) on 10/26/2012 2:20:40 PM Procedure Note Epic, Internal Processing - 08/01/2019Fo rmatting of this note might be different from the original. Sinus rhythm Normal ECG When compared with ECG of 25-OCT-2012 19 :36, No significant change was found Confirmed by HAL HARGROVE ([id number]), scientific publications editor PEPPER HERNANDEZ ([id number]) on 10/26/2012 2:20:40 PM Estevan Taylor MD PN ECG ORDERABLES Performing Organization Address City/[facility] Code Phon e Number MUSE GHP [address] [place] [address] BEDSIDE GLUCOSE MONITOR (10/26/2012 8:13 AM CDT) athologist Signature Bedside Blood 251 mg/dL HP CONVERSION Glucose Test Specimen Anatomical Collection Method Collection Time Receive d Time (Source) Location / / Volume Laterality 10/26/2012 8:13 AM 3 8:45 CDT AM CDT Monica Valle MBBS LAB_1 Performing Organization Address [facility] Code Phon e Number HP CONVERSION (ABNORMAL) APTT (Activated Partial Thromboplastin Time) (10/26/2012 7:03 AM CDT) [facility] gist Method Time Signature Partial 76.4 (H) 25.0 - HP CONVERSION Thromboplastin 38.0 sec Time Specimen Anatomical Collection Method Collection Time Receive d Time (Source) Location / / Volume Laterality 10/26/2012 7:03 AM 3 7:46 CDT AM CDT Zoie Khanna DO LAB_1 Performing Organization Address City/[facility] Code Phon e Number HP CONVERSION Potassium (10/26/2012 7:03 AM CDT) athologist Signature Potassium 4.5 3.5 - 5.2 HP CONVERSION mEq/L Specimen Anatomical Collection Method Collection Time Receive d Time (Source) Location / / Volume Laterality 10/26/2012 7:03 AM 3 7:46 CDT AM CDT Zoie Khanna DO LAB_1 Performing Organization Address [facility] Phon e Number HP CONVERSION (ABNORMAL) Hgb A1c (10/26/2012 7:03 AM CDT) athologist Signature HGB A1C 11.1 (H) 0.0 - 6.0 % HP CONVERSION Specimen Anatomical Collection Method Collection Time Receive d Time (Source) Location / / Volume Laterality 10/26/2012 7:03 AM 3 7:46 CDT AM CDT Zoie Khanna DO LAB_1 Performing Organization Address City/[facility] Phon e Number HP CONVERSION LABS CARD PROF TROPI 6 HRS (10/26/2012 2:07 AM CDT) athologist Signature Tropi At 6 Hrs <0.05 0.00 - HP CONVERSION 0.04 ng/mL Specimen Anatomical Collection Method Collection Time Receive d Time (Source) Location / / Volume Laterality 10/26/2012 2:07 AM 3 2:10 CDT AM CDT Zoie Khanna DO LAB_1 Performing Organization Address [facility] Code Phon e Number HP CONVERSION (ABNORMAL) APTT (Activated Partial Thromboplastin Time) (10/25/2012 10:11 PM CDT) [facility] gist Method Time Signature Partial 64.3 (H) 25.0 - HP CONVERSION Thromboplastin 38.0 sec Time Specimen Anatomical Collection Method Collection Time Receive d Time (Source) Location / / Volume Laterality 10/25/2012 10:11 10/25/2012 PM CDT 10:14 PM CDT Zoie Khanna DO LAB_1 Performing Organization Address [facility] Phon e Number HP [...] Zoie Khanna DO LAB_1 Performing Organization Address City/[facility]/ZIP Code Phon e Number HP CONVERSION CARD PROF TROPI 90 MIN (10/25/2012 9:53 PM CDT) P athologist Signature Tropi at 90 Min <0.05 0.00 - HP CONVERSION 0.04 ng/mL Specimen Anatomical Collection Method Collection Time Receive d Time (Source) Location / / Volume Laterality 10/25/2012 9:53 PM 3 CDT 10:08 PM CDT Zoie Khanna DO LAB_1 Performing Organization Address [facility] Phon e Number HP CONVERSION BEDSIDE GLUCOSE MONITOR (10/25/2012 9:38 PM CDT) P athologist Signature Bedside Blood 190 mg/dL HP CONVERSION Glucose Test Specimen Anatomical Collection Method Collection Time Receive d Time (Source) Location / / Volume Laterality 10/25/2012 9:38 PM 3 9:40 CDT PM CDT Zoie Khanna DO LAB_1 Performing Organization Address [facility] Phon e Number HP [...] valves in the aortic position , acute MO, valvular heart disease and atrial fibril lation. [...] Zoie Khanna DO LAB_1 Performing Organization Address [facility] Code Phon e Number HP CONVERSION (ABNORMAL) Differential (10/25/2012 8:07 PM CDT) [facility] Method Time Signature Absolute 3.8 [...] Zoie Khanna DO LAB_1 Performing Organization Address [facility] Phon e Number HP CONVERSION (ABNORMAL) Complete Blood Count W/Diff (10/25/2012 8:07 PM CDT) [facility] Method Time Signature White Blood [...] Zoie Khanna DO LAB_1 Performing Organization Address [facility] Phon e Number HP [...] GHP QTc 441 ms MUSE GHP P [place] 32 degrees MUSE GHP R [place] 19 degrees MUSE GHP T [place] 24 degrees MUSE GHP Specimen (Source) Anatomical Collection Method Collection Time Re ceived Time Location / / Volume Laterality 10/25/2012 7:36 PM CDT Narrative MUSE GHP - 07/29/2019 1:57 PM CDT Sinus rhythm Normal ECG When compared with ECG of 14-MAY-2011 12 :48, Criteria for Inferior infarct are no william reny Present Confirmed by HEMA JARA ([id number]), raymond or PEPPER HERNANDEZ ([id number]) on 10/26/2012 [...] e Number MUSE GHP [address] [place] [address] MRSA Culture (10/25/2012 6:13 PM CDT) Component [...] Visit Diagnoses Diagnosis ACS (acute coronary syndrome) ([facility]) - Pr imary Intermediate coronary syndrome Plan [...] has to do it for himself. Reports Nondenominational marita, no churchattendance. Spiritual care will remain available. Note completed by: Dianne Paris, [id number], pager [phone] End of Report documented in this encounter Care Teams Account Classification Clerk Relationship Specialty Start Date End Date Gagandeep Hinojosa MD PCP - General 05/17/12 [address] [place] [address] Vane Zarate Psychiatrist Psychiatry 03/22/12 documented as of this encounter
--- OUTSIDE RECORDS SUMMARY | 2022-02-14 17:11 | XMS_ITS | Encounter Summary ---
:1970 Author [facility] Address [address] [place] [address] Care Team Providers Name Role Phone Gagandeep Hinojosa MD Primary Care Provider Reason for Visit Reason Comments Post Hospital Discharge Follow Up Encounter Details Date Type Department Care Team Description 10/28/2012 Telephone [facility] [employer] [facility] Gagandeep Hinojosa, Post Hospital Discharge Medicine MD Follow Up [address] [facility] . [address] [place] [address] [place] [address] [phone] (Wo rk) Social History Tobacco Use Types [...] on filedocumented in this encounter Care Teams Gear Finisher Relationship Specialty Start Date End Date Gagandeep Hinojosa MD PCP - General 05/17/12 [address] [place], [place] [address] Vane Zarate Psychiatrist Psychiatry 03/22/12 documented as of this encounter
--- OUTSIDE RECORDS SUMMARY | 2022-02-14 17:11 | XMS_ITS | Encounter Summary ---
:1970 Author Organization [facility] Address [address] [place] [address] Care Team Providers Name Role Phone Gagandeep Hinojosa MD Primary Care Provider Reason for Visit Reason Comments Care Coordination Encounter Details Date Type Department Care Team Description 02/12/2013 Telephone [facility] Judy Pittman RN Care Coordination [address] [facility] . [address] [place] [address] [place] [address] [phone] Social History Tobacco Use Types Packs/Day Years [...] requesting a return call. Please transfer to [phone]. Checking to make sure Rustam received his insulin at [facility] in [place] and there weren't any problems with payment. udy Weber RN - 02/12/2013 3:43 PM CDT Clay Structure Builder And Servicer - Phone Call Reason for call: Medication assistance Discussion/actions: Lev is returning my call, stating that the [facility] will be able to help Rustam with the cost of his insulin for this month. Unfortunately, [facility] does not work with [facility] and therefore will need the prescription transferred to [facility] in [place] to arrange payment. I spoke with the pharmacist at [facility] and provided a verbal order for Novolin N and Novolin R per Dr Hinojosa's orders on 02/09/13. I spoke with pharmacist at [facility] and discontinued the refill senton 02/09/13. 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 I reminded Rustam thathe is due to have his A1c checked before the end of this month and will need to have this completed before further refills. Shared plan: I provided my contact information for Rustam to call and schedule his A1c. Judy Pittman RN - 02/12/2013 2:11 PM CDT [employer] Builder [employer] Servicer - Phone Call Reason for call: Medication [...] on filedocumented in this encounter Care Teams Pump Servicer Helper Relationship Specialty Start Date End Date Gagandeep Hinojosa MD PCP - General 05/17/12 [address] [place] [address] Vane Zarate Psychiatrist Psychiatry 03/22/12 documented as of this encounter
--- OUTSIDE RECORDS SUMMARY | 2022-02-14 17:11 | XMS_ITS | Encounter Summary ---
:1970 Author Organization [employer] Address [address], [place] [address] Care Team Providers Name Role Phone Gagandeep Hinojosa MD Primary Care Provider Reason for Visit Reason Comments Vomiting Diarrhea Abdominal Pain Encounter Details Date Type Department Care Team Description 03/07/2013 Hospital Encounter [facility], Abdo rosalie pain, unspecified site (Primary Dx); Care Millicent Belcher MD Dizziness; [address] [place]; Drive [place], [place] [address] [phone] Social History Tobacco Use Types Packs/Day Years Used Date Smoking Tobacco: Never Assessed Sex Assigned at Date Recorded Not on file documented as of this encounter Last Filed Vital Signs Vital Sign Reading Time Taken Comments Blood Pressure 122/85 03/07/2013 2:52 PM RUBBER PRESS TENDER Pulse 97 03/07/2013 2:52 PM RUBBER PRESS TENDER Temperature 36.3 ??C (97.3 ??F) 03/07/2013 1:17 PM RUBBER PRESS TENDER Respiratory Rate 16 03/07/2013 2:52 PM RUBBER PRESS TENDER Oxygen Saturation - - Inhaled Oxygen Concentration [...] 03/16/13 1214 Note Time: 03/07/131726 Status: Signed Digital Manager: Millicent Nieves MD (Physician) NAME: SHARLENE VARNER MR#: [id number] CSN: [id number] AUTHENTICATING CLINICIAN: Millicent Nieves MD CONFIRM #: [id number] LOC: 520 URGENT CARE PROGRESS NOTE DATE [...] MEDICATIONS: Reviewed. SOCIAL HISTORY: He works at [employer]. Began smoking cigarettes again. Does not drink [...] or persist, he will return for recheck. SMS:[employer] C: CONFIRM #: [id number] ER PRESS TENDER Zayra Orozco RN - 03/07/2013 3:26 PM CST IV removed with cannula intact per order; pressure dressing applied to site. Pt verbalized improvement in condition and decrease in nausea. Pt discharged alert and oriented. Екатерина Broderick RN - 03/07/2013 2:55 PM CST VSS. Pt denies signs of allergic reaction. Pt resting comfortably. Pt alert. Nausea resolving. IV patent. Will continue to monitor pt. ER PRESS TENDER Екатерина Broderick RN - 03/07/2013 2:37 PM CST Pt c/o feeling head coyle sensation, dizziness. Dr. Nieves informed. See BG result. documented in this encounter Miscellaneous Notes Miscellaneous - 03/07/2013 3:26 PM CSTNotes Recorded by Gina Ash MD on 03/07/2013 at 9:[address] Nieves review on 03/08/13. ER PRESS TENDER Medication History - Elvis Ellington MD - [...] RN Intravenous - 03/07/13 1437 - - ER PRESS TENDER documented in this encounter Plan of Treatment Not on filedocumented as of this encounter Procedures Procedure Name Priority Date/Time Associated Diagnosis Comme nts BGS NO CHARGE Routine 03/07/2013 2:35 PM Results for this RUBBER PRESS TENDER procedure are i n the results section. ANION GAP STAT 03/07/2013 1:53 PM Results f or this RUBBER PRESS TENDER procedure are i n the results section. COMPLETE BLOOD STAT 03/07/2013 1:53 PM Abdominal pain, Resu lts for this COUNT-W/DIFF RUBBER PRESS TENDER unspecified site procedure a re in the results section. LIVER PANEL(HEPATIC STAT 03/07/2013 1:53 PM Abdominal pain, Results for this FUNCTION PANEL) RUBBER PRESS TENDER unspecified site procedur e are in the results section. BASIC METABOLIC PANEL STAT 03/07/2013 1:53 PM Abdominal sesar n, Results for this RUBBER PRESS TENDER unspecified site procedure a re in the results section. DIFFERENTIAL STAT 03/07/2013 1:53 PM Results f or this RUBBER PRESS TENDER procedure are i n the results section. VALPROIC ACID STAT 03/07/2013 1:53 PM Abdominal pain, Resul ts for this (DEPAKENE) RUBBER PRESS TENDER unspecified site procedure a re in the results section. LIPASE STAT 03/07/2013 1:53 PM Abdominal pain, Result s for this RUBBER PRESS TENDER unspecified site procedure a re in the results section. OCCULT BLOOD, EXAM 1 STAT 03/07/2013 1:52 PM Abdominal pain , Results for this RUBBER PRESS TENDER unspecified site procedure a re in the results section. URINE MICROSCOPIC STAT 03/07/2013 1:37 PM Abdominal pain, R esults for this RUBBER PRESS TENDER unspecified site procedure a re in the results section. URINALYSIS STAT 03/07/2013 1:37 PM Abdominal pain, Result s for this ROUTINE(MICRO IF POS) RUBBER PRESS TENDER unspecified site pr ocedure are in the results section. BGS NO CHARGE Routine 03/07/2013 1:24 PM Results for this RUBBER PRESS TENDER procedure are i n the results section. documented in this encounter Results BGS NO CHARGE (03/07/2013 2:35 PM RUBBER PRESS TENDER) athologist Signature Bedside Blood 147 mg/dL HP CONVERSION Glucose Test Comment: Performed at [facility], [address], [place]. [address] Specimen Anatomical Collection Method Collection Time Receive d Time (Source) Location / / Volume Laterality 03/07/2013 2:35 PM 3 2:40 RUBBER PRESS TENDER PM RUBBER PRESS TENDER Millicent Nieves MD LAB_1 Performing Organization Address City/State/ZIP Code Phon e Number HP CONVERSION (ABNORMAL) Differential (03/07/2013 1:53 PM RUBBER PRESS TENDER) [facility] gist Method Time Signature Absolute 7.2 1.8 [...] Volume Laterality 03/07/2013 1:53 PM 3 1:52 RUBBER PRESS TENDER PM RUBBER PRESS TENDER Narrative HP CONVERSION - 03/07/2013 2:27 PM RUBBER PRESS TENDER Performed at [facility], [address] [place] [address] Millicent Nieves MD LAB_1 Performing Organization Address [facility] Phon e Number HP CONVERSION ANION GAP (03/07/2013 1:53 PM RUBBER PRESS TENDER) athologist Signature ANION GAP 7 0 - 16 mEq/L HP CONVERSION Specimen Anatomical Collection Method Collection Time Receive d Time (Source) Location / / Volume Laterality 03/07/2013 1:53 PM 3 1:52 RUBBER PRESS TENDER PM RUBBER PRESS TENDER Narrative HP CONVERSION - 03/07/2013 2:28 PM RUBBER PRESS TENDER Performed at [facility], [address] [place] [address] Millicent Nieves MD LAB_1 Performing Organization Address [facility] Phon e Number HP CONVERSION Lipase (03/07/2013 1:53 PM RUBBER PRESS TENDER) athologist Signature Lipase 34 5 - 70 U/L HP CONVERSION Specimen Anatomical Collection Method Collection Time Receive d Time (Source) Location / / Volume Laterality 03/07/2013 1:53 PM 3 1:52 RUBBER PRESS TENDER PM RUBBER PRESS TENDER Narrative HP CONVERSION - 03/07/2013 2:28 PM RUBBER PRESS TENDER Performed at [facility], [address] [place] [address] iMllicent Nieves MD LAB_1 Performing Organization Address [facility] Phon e Number HP CONVERSION Liver Panel(Hepatic Function Panel) (03/07/2013 1:53 PM RUBBER PRESS TENDER) Patholo gist Method Time Signature Alk Phos [...] Volume Laterality 03/07/2013 1:53 PM 3 1:52 RUBBER PRESS TENDER PM RUBBER PRESS TENDER Narrative HP CONVERSION - 03/07/2013 2:28 PM RUBBER PRESS TENDER Performed at [facility], [address] [place] [address] Millicent Nieves MD LAB_1 Performing Organization Address City/State/ZIP Code Phon e Number HP CONVERSION (ABNORMAL) Basic Metabolic Panel (03/07/2013 1:53 PM RUBBER PRESS TENDER) [facility] gist Method Time Signature Creatinine Serum 0.8 [...] Volume Laterality 03/07/2013 1:53 PM 3 1:52 RUBBER PRESS TENDER PM RUBBER PRESS TENDER Narrative HP CONVERSION - 03/07/2013 2:28 PM RUBBER PRESS TENDER Performed at [facility], [address] [place] [address] Millicent Nieves MD LAB_1 Performing Organization Address City/State/ZIP Code Phon e Number HP CONVERSION (ABNORMAL) Complete Blood Count W/Diff (03/07/2013 1:53 PM RUBBER PRESS TENDER) [facility] Method Time Signature White Blood Cell [...] Volume Laterality 03/07/2013 1:53 PM 3 1:52 RUBBER PRESS TENDER PM RUBBER PRESS TENDER Narrative HP CONVERSION - 03/07/2013 2:25 PM RUBBER PRESS TENDER Performed at [facility], [address] [place] [address] Millicent Nieves MD LAB_1 Performing Organization Address City/[facility] Code Phon e Number HP CONVERSION Valproic Acid (Depakene) (03/07/2013 1:53 PM RUBBER PRESS TENDER) [facility] Method Time Signature Date Last Dose 03/06/2013 HP CONVERSION Valproic Acid Time Last Dose 10.00 HP CONVERSION Valproic Acid Valproic 98 50 - 100 HP CONVERSION Acid/Depakene ug/mL (Valp) Specimen Anatomical Collection Method Collection Time Receive d Time (Source) Location / / Volume Laterality 03/07/2013 1:53 PM 3 6:13 RUBBER PRESS TENDER PM RUBBER PRESS TENDER Transcriptions 03/07/2013 3:26 PM CSTNotes Recorded by Gina Ash MD on 03/07/2013 at 9:[address] Nieves review on 03/08/13. Millicent Nieves MD LAB_1 Performing Organization Address City/[facility]/ZIP Code Phon e Number HP CONVERSION Occult Blood, Exam 1 (03/07/2013 1:52 PM RUBBER PRESS TENDER) [facility] Method Time Signature Occult Blood, Negative Negative HP CONVERSION Stool #1 Date/Time #1 [id number] HP CONVERSION Specimen Anatomical Collection Method Collection Time Receive d Time (Source) Location / / Volume Laterality 03/07/2013 1:52 PM 3 1:57 RUBBER PRESS TENDER PM RUBBER PRESS TENDER Narrative HP CONVERSION - 03/07/2013 2:00 PM RUBBER PRESS [place]END[place] [address] Millicent Nieves MD LAB_1 Performing Organization Address [facility] Phon e Number HP CONVERSION URINE MICROSCOPIC (03/07/2013 1:37 PM RUBBER PRESS TENDER) athologist Signature Urine WBC 0-2 0 - 4 /HPF HP CONVERSION Urine RBC None seen 0 - 2 /HPF HP CONVERSION Specimen Anatomical Collection Method Collection Time Receive d Time (Source) Location / / Volume Laterality 03/07/2013 1:37 PM 3 1:55 RUBBER PRESS TENDER PM RUBBER PRESS TENDER Narrative HP CONVERSION - 03/07/2013 2:05 PM RUBBER PRESS [place]END[place] [address] Millicent Nieves MD LAB_1 Performing Organization Address City/[facility] Phon e Number HP CONVERSION (ABNORMAL) URINALYSIS ROUTINE(MICRO IF POS) (03/07/2013 1:37 PM RUBBER PRESS TENDER) [facility] Method Time Signature Urine Type Urine:clean [...] U Specific 1.015 1.005 - HP CONVERSION [place] 1.030 Urobilinogen Negative Negative HP CONVERSION Urine Eu/dL Specimen Anatomical Collection Method Collection Time Receive d Time (Source) Location / / Volume Laterality Urine: 03/07/2013 1:37 PM 3 1:55 RUBBER PRESS TENDER PM RUBBER PRESS TENDER Narrative HP CONVERSION - 03/07/2013 2:05 PM RUBBER PRESS TENDER Performed at [address], [place] [address] Millicent Nieves MD LAB_1 Performing Organization Address City/[facility] Code Phon e Number HP CONVERSION BGS NO CHARGE (03/07/2013 1:24 PM RUBBER PRESS TENDER) athologist Signature Bedside Blood 158 mg/dL HP CONVERSION Glucose Test Comment: Performed at [facility], [address] , [place]. [address] Specimen Anatomical Collection Method Collection Time Receive d Time (Source) Location / / Volume Laterality 03/07/2013 1:24 PM 3 1:30 RUBBER PRESS TENDER PM RUBBER PRESS TENDER Millicent Nieves MD LAB_1 Performing Organization Address City/[facility] Code Phon e Number HP CONVERSION documented [...] he has not taken any meds today. ER PRESS TENDER documented in this encounter Care Teams Midlevel Provider Relationship Specialty Start Date End Date Gagandeep Hinojosa MD PCP - General 05/17/12 [facility]5 [place] [address] [address] Z[address] Psychiatrsamantha Psychiatry 03/22/12 documented as of this encounter
--- OUTSIDE RECORDS SUMMARY | 2022-02-14 17:11 | XMS_ITS | Encounter Summary ---
:1970 Author Organization [employer] Address [address] [place] [address] Care Team Providers Name Role Phone Gagandeep Hinojosa MD Primary Care Provider Reason for Visit Reason Comments Treatment Plan Encounter Details Date Type Department Care Team Description 11/03/2012 Nurse Triage [place] Gagandeep Hinojosa, Treatment Plan [address] [place] [address] 14[address] [facility] [phone] [place], [place] [address] (Wo rk) Social History Tobacco Use Types Packs/Day Years Used Date Smoking Tobacco: Never Assessed Sex Assigned at Date Recorded Not on file documented as of this encounter Nursing Notes Melanie Smith RN - 11/03/2012 7:32 AM CDT Protocol: SHOULDER [id number] Affirmative: [1] MODERATE pain (e.g. interferes with [...] on filedocumented in this encounter Care Teams Upholstery Mechanic Relationship Specialty Start Date End Date Gagandeep Hinojosa MD PCP - General 05/17/[address] [place] [address] [place] [address] Vane Zarate Psychiatrist Psychiatry 03/22/12 documented as of this encounter
--- OUTSIDE RECORDS SUMMARY | 2022-02-14 17:11 | XMS_ITS | Encounter Summary ---
:1970 Author Organization [employer] Address [address] [place] [address] Care Team Providers Name Role Phone Gagandeep Hinojosa MD Primary Care Provider Reason for Visit Reason Comments LAB RESULTS Encounter Details Date Type Department Care Team Description 02/28/2013 Telephone [facility] Gagandeep Hinojosa MD LAB RESULTS 14[address] [facility] . [address] [facility] [place] [address] [place] [address] [phone] (Wo rk) Social History Tobacco Use Types Packs/Day Years Used Date Smoking Tobacco: Never Assessed Sex Assigned at Date Recorded Not on file documented as of this encounter Nursing Notes Jud Curry RN - 02/28/2013 12:00 PM CST Reviewed lab letter with pt, appt made for discussion as per letter ECTION SUPERVISOR Yesenia Jara - 02/28/2013 11:54 AM CST Lab/Radiology Results Primary Care Provider: Gagandeep Hinojosa What test result is needed? Labs When and where was test done? [place] on 02/14 Who ordered the test? Gagandeep Hinojosa Transferred to triage per patient request. Can be reached at [phone]. documented in this encounter Plan of Treatment Not on filedocumented as of this encounter Visit Diagnoses Not on filedocumented in this encounter Care Teams Health Specialist Relationship Specialty Start Date End Date Gagandeep Hinojosa MD PCP - General 05/17/12 14[address] [facility] [place] [address] Vane Zarate Psychiatrist Psychiatry 03/22/12 documented as of this encounter
--- OUTSIDE RECORDS SUMMARY | 2022-02-14 17:11 | XMS_ITS | Encounter Summary ---
:1970 Author Organization [employer] Address [address] [place] [address] Care Team Providers Name Role Phone Gagandeep Hinojosa MD Primary Care Provider Reason for Visit Reason Comments Care Coordination Encounter Details Date Type Department Care Team Description 05/02/2012 [facility] Lilian Persaud DO Care Coordination [address] [facility] . [address] [place] [address] [place] [address] [phone] (Wo rk) Social History Tobacco Use Types [...] Care Transitions: Timur is enrolled in health residential: yes, Candidate? yes Number of active medications in EPIC:Assessment: The problem list in EPIC was updated: yes Health Maintenance was reviewed and updated: yes Timur is failing clinical markers for the following health condition(s): Diabetes The patient is due for: Updated labwork, labs pre-entered yes Plan: It is determined that Timur will benefit from the following: Referral to Sorority Mother yes This encounter is routed to the [...] documented in this encounter Care Teams Industrial Refrigeration Mechanic Relationship Specialty Start Date End Date Gagandeep Hinojosa MD PCP - General 05/17/12 [address] [place] [address] Vane Zarate Psychiatrist Psychiatry 03/22/12 documented as of this encounter
--- OUTSIDE RECORDS SUMMARY | 2022-02-14 17:11 | XMS_ITS | Encounter Summary ---
:1970 Author Organization [employer] Address [address] [place] [address] Care Team Providers Name Role Phone Lilian Persaud DO Primary Care Provider Encounter Details Date Type Department Care Team Description 04/07/2012 Notes/Orders [place] [facility] Herlinda De Santiago, ROBYN Mass on back [address] [facility] [place] [address] Social History Tobacco Use Types Packs/Day Years [...] Neck, Head Other Impressions 04/06/2012 12:00 AM MERCURY PURIFIER IMPRESSION: ??No sonographic abnormality identified. ??The findings were discussed with the patient at the t sadia of the examination. Narrative 04/06/2012 12:00 AM MERCURY PURIFIER Imaging performed at [facility]: ULTRASOUND OF THE TWO PALPABLE LUMPS [...] different from the original. Imaging performed at [facility]: ULTRASOUND OF THE TWO PALPABLE LUMPS [...] sadia of the examination. Gagandeep Hinojosa MD [facility] documented in this encounter Visit Diagnoses Diagnosis Mass on back Localized superficial swelling, mass, or lump documented in this encounter Care Teams Wood Floor Layer Relationship Specialty Start Date End Date Lilian Persaud DO PCP - General 12/23/10 05/16/12 [address] [place] [address] Vane Zarate Psychiatrist Psychiatry 03/22/12 documented as of this encounter
--- OUTSIDE RECORDS SUMMARY | 2022-02-14 17:11 | XMS_ITS | Encounter Summary ---
:1970 Author Organization [facility] Address [address] [address] Care Team Providers Name Role Phone Gagandeep Hinojosa MD Primary Care Provider Reason for Visit Reason Comments Pharmacy Encounter Details Date Type Department Care Team Description 11/14/2012 Refill [place] [facility] Gagandeep Hinojosa MD Pharmacy [address] [facility] . [address] [facility] [place] [address] [place] [address] [phone] (Wo rk) Social History Tobacco Use Types [...] 2 days for RX to be approved. [facility] calling where pt is waiting to get [...] requesting rx Pharmacy [facility] Phone [facility] Street or City: [place] Drug Name: 1ml 30 gu 8 mm short needle. Strength: unk Dose/Route/Freq: unk *ECODE documented in this encounter Plan of Treatment Not on filedocumented as of this encounter Visit Diagnoses Not on filedocumented in this encounter Care Teams Plastic Outfitter Relationship Specialty Start Date End Date Gagandeep Hinojosa MD PCP - General 05/17/12 1415 [facility] [place] [address] Vane Zarate Psychiatrist Psychiatry 03/22/12 documented as of this encounter
--- OUTSIDE RECORDS SUMMARY | 2022-02-14 17:11 | XMS_ITS | Encounter Summary ---
:1970 Author Organization [facility] Address [address] [place] [address] Care Team Providers Name Role Phone Lilian Persaud DO Primary Care Provider Encounter Details Date Type Department Care Team Description 05/08/2012 Notes/Orders Gagandeep Storm Type II or unspecified Medicine MD Joanne type diabetes mellitus [facility] [facility] . 14[address] [facility] without mention of [place] [address] Marlena complication, [place] [address] uncontrolled (Primary [phone] Dx) (Work) Social History Tobacco Use Types Packs/Day Years Used Date Smoking Tobacco: Never Assessed Sex Assigned at Date Recorded Not on file documented as of this encounter Plan of Treatment Not on filedocumented as of this encounter Visit Diagnoses Diagnosis Type II or unspecified type diabetes jasen litus without mention of complication, uncontrolled - Primary documented in this encounter Care Teams Sander Machine Relationship Specialty Start Date End Date Lilian Persaud DO PCP - General 12/23/10 05/16/12 [address] [place] [address] Vane Zarate Psychiatrsamantha Psychiatry 03/22/12 documented as of this encounter
--- OUTSIDE RECORDS SUMMARY | 2022-02-14 17:11 | XMS_ITS | Encounter Summary ---
:1970 Author Organization [employer] Address [address] [place] [address] Care Team Providers Name Role Phone Lilian Persaud DO Primary Care Provider Reason for Visit Reason Comments CYST Encounter Details Date Type Department Care Team Description 04/05/2012 Nurse Triage [facility] Lilian Persaud, CYST [address] [address] [place] [address] [place] [address] [phone] (Wo rk) Social History Tobacco Use Types Packs/Day Years Used Date Smoking Tobacco: Never Assessed Sex Assigned at Date Recorded Not on file documented as of this encounter Nursing Notes Yoana Riley RN - 04/05/2012 8:58 PM CST Protocol: SKIN LUMP OR LOCALIZED [id number] Affirmative: [1] Swelling is painful to touch AND [2] no fever Disposition of See Physician Within 24 Hours suggested. Patient calling. Was seen at [facility] last week for infected sabascious cyst [...] on filedocumented in this encounter Care Teams Ged Tutor Relationship Specialty Start Date End Date Lilian Persaud DO PCP - General 12/23/10 05/16/12 [address] [place] [address] Vane Zarate Psychiatrsamantha Psychiatry 03/22/12 documented as of this encounter
--- OUTSIDE RECORDS SUMMARY | 2022-02-14 17:11 | XMS_ITS | Encounter Summary ---
:1970 Author Organization [employer] Address [address] [place] [address] Care Team Providers Name Role Phone Gagandeep Hinojosa MD Primary Care Provider Reason for Visit Reason Comments Care Coordination Encounter Details Date Type Department Care Team Description 02/06/2013 Telephone [place] [facility] Judy Pittman RN Care Coordination 1415 [facility] . 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 Rustam states [...] so he is paying for his insulin [id number]. Rustam states he is managing ok at [...] requesting a return call. Please transfer to [phone]. I received notice that Rustam has been frequently utilizing the ER, with 6 visits in the past year. documented in this encounter Plan of Treatment Not on filedocumented as of this encounter Visit Diagnoses Not on filedocumented in this encounter Care Teams Groover And Striper Operator Relationship Specialty Start Date End Date Gagandeep Hinojosa MD PCP - General 05/17/12 1415 [facility] [place] [address] Vane Zarate Psychiatrist Psychiatry 03/22/12 documented as of this encounter
--- OUTSIDE RECORDS SUMMARY | 2022-02-14 17:11 | XMS_ITS | Encounter Summary ---
:1970 Author Organization [facility] Address [address] [place] [address] Care Team Providers Name Role Phone Lilian Persaud DO Primary Care Provider Reason for Visit Reason Comments Diabetes Encounter Details Date Type Department Care Team Description 04/05/2012 Telephone [place] Judy Pittman RN Diabetes 1415 [facility] . 1415 [place] [address] [place] [address] [phone] Social History Tobacco Use Types Packs/Day Years Used Date Smoking Tobacco: Never Assessed Sex Assigned at Date Recorded Not on file documented as of this encounter Nursing Notes Lilian Persaud DO - 04/05/2012 4:56 PM CST agree with plan.Looks good! Judy Villegas RN - 04/05/2012 2:27 PM CST RN Delicatessen Slicer - Diabetes Phone Follow-Up Current diabetes medication [...] filedocumented in this encounter Care Teams Senior Software Qa Analyst Relationship Specialty Start Date End Date Lilian Persaud DO PCP - General 12/23/10 05/16/12 1415 [place] [address] Vane Zarate Psychiatrsamantha Psychiatry 03/22/12 documented as of this encounter
--- OUTSIDE RECORDS SUMMARY | 2022-02-14 17:11 | XMS_ITS | Encounter Summary ---
:1970 Author Organization [email or web address] Address [address] [place] [address] Care Team Providers Name Role Phone Lilian Persaud DO Primary Care Provider Reason for Visit Reason Comments Abscess Encounter Details Date Type Department Care Team Description 04/06/2012 Office Visit Gagandeep Storm Mass on back (Primary Medicine MD Joanne Dx) [facility] [address] [place] [address] Ave [phone] [place], [place] [address] Social History Tobacco Use [...] He was seen in urgent care at [place] about a week or so ago and [...] 09/15/2005 Class: Chronic Overview Note: LW Onset: [id number] FAMILY HISTORY OR SICK CONTACTS : No [...] lump documented in this encounter Care Teams Residential Roofer Helper Relationship Specialty Start Date End Date Lilian Persaud DO PCP - General 12/23/10 05/16/12 [address] [place] [address] Vane Zarate Psychiatrsamantha Psychiatry 03/22/12 documented as of this encounter
--- OUTSIDE RECORDS SUMMARY | 2022-02-14 17:11 | XMS_ITS | Encounter Summary ---
:1970 Author Organization [employer] Address [address] [address] Care Team Providers Name Role Phone Gagandeep Hinojosa MD Primary Care Provider Reason for Visit Reason Comments Diabetes Encounter Details Date Type Department Care Team Description 05/24/2012 Telephone [place] [facility] Judy Pittman RN Diabetes 1415 [facility] . 1415 [place] [address] [place] [address] [phone] Social History Tobacco Use Types Packs/Day Years Used Date Smoking Tobacco: Never Assessed Sex Assigned at Date Recorded Not on file documented as of this encounter Nursing Notes Judy Pittman RN - 05/24/2012 2:15 PM CST RN Strapper - Diabetes Phone Follow-Up Current diabetes medication [...] part-time job. Rustam has been over to [place], they have set up with some temporary [...] on filedocumented in this encounter Care Teams Pinion Staker Relationship Specialty Start Date End Date Gagandeep Hinojosa MD PCP - General 05/17/12 [facility]5 [facility] [place] [address] Vane Zarate Psychiatrist Psychiatry 03/22/12 documented as of this encounter
--- OUTSIDE RECORDS SUMMARY | 2022-02-14 17:11 | XMS_ITS | Encounter Summary ---
:1970 Author Organization [facility] Address [address] [address] Care Team Providers Name Role Phone Gagandeep Hinojosa MD Primary Care Provider Reason for Visit Reason Comments Refill Encounter Details Date Type Department Care Team Description 07/24/2012 Refill [facility] Franck Greene MD Refill SERVICES [address] [place] [address] [place] [address] (Wo rk) Social History Tobacco [...] on filedocumented in this encounter Care Teams Creping Machine Operator Relationship Specialty Start Date End Date Gagandeep Hinojosa MD PCP - General 05/17/12 1415 [place] [address] Vane Zarate Psychiatrist Psychiatry 03/22/12 documented as of this encounter
--- OUTSIDE RECORDS SUMMARY | 2022-02-14 17:11 | XMS_ITS | Encounter Summary ---
:1970 Author Organization [facility] Address [address] [place] [address] Care Team Providers Name Role Phone Gagandeep Hinojosa MD Primary Care Provider Encounter Details Date Type Department Care Team Description 05/17/2012 Notes/Orders Vane Durbin, Encounter for long-term 1415 [place] (current) use of other [place] [address] medications (Primary [phone] [address] Dx) [place] [address] Social History Tobacco Use Types Packs/Day Years Used Date Smoking Tobacco: Never Assessed Sex Assigned at Date Recorded Not on file documented as of this encounter Plan of Treatment Not on filedocumented as of this encounter Visit Diagnoses Diagnosis Encounter for long-term (current) use of other medications - Primary documented in this encounter Care Teams Immigration Case Manager Relationship Specialty Start Date End Date Gagandeep Hinojosa MD PCP - General 05/17/12 [address] [place] [place] [id number] Vane Zarate Psychiatrist Psychiatry 03/22/12 documented as of this encounter
--- OUTSIDE RECORDS SUMMARY | 2022-02-14 17:11 | XMS_ITS | Encounter Summary ---
:1970 Author Organization [employer] Address [address] [place] [address] Care Team Providers Name Role Phone Gagandeep Hinojosa MD Primary Care Provider Reason for Visit Reason Comments Diabetes Encounter Details Date Type Department Care Team Description 03/14/2013 Office Visit Gagandeep Storm Type II or unspecified type diabetes mellitus without mention of complication, uncontrolled (Primary Dx); Romario Rubio MD Need for influenza vaccination; 1415 [place] 1415 [facility] Coronary atherosclerosis of unspecified type of vessel, atqasuk or graft; Ave. Ave continuous churn buttermaker current use of insulin; [place] [address] [place] Long-term insulin use in typ e 2 diabetes; [phone] Unspecified essential hypertension; [phone] Tobacco use dis order; (Work) Obesity, unspecified Social History Tobacco Use Types Packs/Day Years Used Date Smoking Tobacco: Never Assessed Sex Assigned at Date Recorded Not on file documented as of this encounter Last Filed Vital Signs Vital Sign Reading Time Taken Comments Blood Pressure 122/74 03/14/2013 1:46 PM SEAM PRESSER Pulse 98 03/14/2013 1:46 PM SEAM PRESSER Temperature - - Respiratory Rate - - Oxygen Saturation - - Inhaled Oxygen Concentration - - Weight 105.2 kg (232 lb) 03/14/2013 1:46 PM SEAM PRESSER Height - - Body Mass Index 33.29 [...] A normal value is less than 30. PRESSER documented in this encounter Progress Notes Gagandeep [...] UMAR: 3 months Aspirin: yes Tobacco: yes PRESSER documented in this encounter Plan of Treatment Not on filedocumented as of this encounter Visit Diagnoses Diagnosis Type II or unspecified type diabetes jasen litus without mention of complication, uncontrolled - Primary Need for influenza vaccination Need for prophylactic vaccination and in oculation against influenza Coronary atherosclerosis of unspecified type of vessel, atqasuk or graft (HRC) Coronary atherosclerosis of unspecified type of vessel, atqasuk or graft continuous churn buttermaker current use of insulin (HRC) Encounter for long-term (current) use of insulin Long-term insulin use in type 2 diabetes (HRC) Type II or unspecified type diabetes jasen litus without mention of complication, not stated as uncontrolled Unspecified essential hypertension (HRC) Unspecified essential hypertension Tobacco use disorder (HRC) Tobacco use disorder Obesity, unspecified (HRC) Obesity, unspecified documented in this encounter Care Teams Yoke Presser Relationship Specialty Start Date End Date Gagandeep Hinojosa MD PCP - General 05/17/12 1415 [place] [address] Vane Zarate Psychiatrist Psychiatry 03/22/12 documented as of this encounter
--- OUTSIDE RECORDS SUMMARY | 2022-02-14 17:11 | XMS_ITS | Encounter Summary ---
:1970 Author Organization [employer] Address [address] [place] [address] Care Team Providers Name Role Phone Gagandeep Hinojosa MD Primary Care Provider Reason for Visit Reason Comments Rectal Bleeding Encounter Details Date Type Department Care Team Description 09/20/2012 Nurse Triage [facility] Gagandeep Hinojosa, Rectal Bleeding [address] [place] [address] [phone] [place], [place] [address] (Wo rk) Social History Tobacco Use Types Packs/Day Years Used Date Smoking Tobacco: Never Assessed Sex Assigned at Date Recorded Not on file documented as of this encounter Nursing Notes uRth Ann Nelson RN - 09/20/2012 8:57 PM CDT Protocol: RECTAL [id number] Negative: Taking Coumadin (warfarin), Pradaxa (dabigatran), or known bleeding disorder (e.g., thrombocytopenia) Negative: Severe dizziness (e.g., unable to stand, requires support to walk, feels like passing out now) Negative: [1] Constant abdominal pain AND [2] present > 2 hours Affirmative: Patient sounds very sick or weak to the triager Disposition of Go To ED Now (Or PCP Triage) suggested. Protocol: RECTAL [id number] Affirmative: Large mass protruding out of rectum [...] filedocumented in this encounter Care Teams Java Engineer Relationship Specialty Start Date End Date Gagandeep Hinojosa MD PCP - General 05/17/12 [facility] [place] [address] Vane Zarate Psychiatrist Psychiatry 03/22/12 documented as of this encounter
--- OUTSIDE RECORDS SUMMARY | 2022-02-14 17:11 | XMS_ITS | Encounter Summary ---
:1970 Author Organization [email or web address] Address [address] [place] [address] Care Team Providers Name Role Phone Gagandeep Hinojosa MD Primary Care Provider Reason for Visit Reason Comments Refill Encounter Details Date Type Department Care Team Description 02/09/2013 Refill [facility] Gagandeep Hinojosa MD [facility]15 [facility] . 1415 [place] [address] [place] [address] [phone] (Wo rk) Social History Tobacco Use Types [...] visit on 11/07/12 Last Labs: 10/26/12 staff home therapy rn action: Please route to [facility] to schedule [...] Primary documented in this encounter Care Teams Paperboard Machine Operator Relationship Specialty Start Date End Date Gagandeep Hinojosa MD PCP - General 05/17/12 [facility]5 [facility] [place] [address] Vane aZrate Psychiatrist Psychiatry 03/22/12 documented as of this encounter
--- OUTSIDE RECORDS SUMMARY | 2022-02-14 17:11 | XMS_ITS | Encounter Summary ---
:1970 Author Organization [employer] Address [address] [place] [address] Care Team Providers Name Role Phone Gagandeep Hinojosa MD Primary Care Provider Reason for Visit Reason Comments Follow-up Encounter Details Date Type Department Care Team Description 11/07/2012 Office Visit Gagandeep Storm Type II or unspecified type diabetes mellitus without mention of complication, uncontrolled (Primary Dx); Romario Rubio MD Tobacco abuse; 1415 [place] 1415 [facility] Coronary atherosclerosis of unspecified type of vessel, red devil or graft; Ave. Ave Left shoulder pain [place] [address] [place] [phone] Social History Tobacco Use Types Packs/Day Years [...] anotherwise unremarkable EKG. He was transferred to [facility], and underwent angiography, which showed no acute lesions. Nonetheless, he is now motivated to discontinue smoking, and he is on nicotine patch. His diabetes seems to be well-controlled, although he obtains his [id number] from an outside agency. Labs are pending. [...] Anemia, unspecified 05/02/2012 ??? Microalbuminuria 02/04/2012 ??? 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 History of PTCA 04/2011 [...] is negative, although he does have pain. [place]'s is negative. He has decreased internal rotation [...] type of vessel, red devil or graft Left shoulder pain Pain in joint, shoulder region documented in this encounter Care Teams Wheel Alignment Technician Relationship Specialty Start Date End Date Gagandeep Hinojosa MD PCP - General 05/17/12 [facility]5 [facility] [place] [address] Vane Zarate Psychiatrsamantha Psychiatry 03/22/12 documented as of this encounter
--- OUTSIDE RECORDS SUMMARY | 2022-02-14 17:11 | XMS_ITS | Encounter Summary ---
:1970 Author Organization [facility] Address [address] [place] [address] Care Team Providers Name Role Phone Gagandeep Hinojosa MD Primary Care Provider Encounter Details Date Type Department Care Team Description 05/17/2012 Lab Visit [place] [facility] Type II or unspecified type 1415 [facility] . diabetes mellitus without [place] [address] mention of complication, uncontrolled Social History Tobacco Use Types Packs/Day Years Used Date Smoking Tobacco: Never Assessed Sex Assigned at Date Recorded Not on file documented as of this encounter Plan of Treatment Not on filedocumented as of this encounter Procedures Procedure Name Priority Date/Time Associated Diagnosis Comme nts HGB A1C Routine 05/17/2012 10:35 AM Type II or unspecifie d Results for this DEATH CLAIM EXAMINER type diabetes mellitus proce dure are in without mention of the resul ts complication, section. uncontrolled (HRC) documented in this encounter Results (ABNORMAL) Hgb A1c (05/17/2012 10:35 AM DEATH CLAIM EXAMINER) P athologist Signature HGB A1C 10.2 (H) 0.0 - 6.0 % HP CONVERSION Specimen Anatomical Collection Method Collection Time Receive d Time (Source) Location / / Volume Laterality 05/17/2012 10:35 05/17/2012 4:14 AM DEATH CLAIM EXAMINER PM DEATH CLAIM EXAMINER Gagandeep Hinojosa MD LAB_1 Performing Organization Address City/State/ZIP Code Phon e Number HP CONVERSION documented in this encounter Visit Diagnoses Diagnosis Type II or unspecified type diabetes jasen litus without mention of complication, uncontrolled documented in this encounter Care Teams Felt Finisher Relationship Specialty Start Date End Date Gagandeep Hinojosa MD PCP - General 05/17/12 [facility]15 [facility] [place] [address] Vane Zarate Psychiatrist Psychiatry 03/22/12 documented as of this encounter
--- OUTSIDE RECORDS SUMMARY | 2022-02-14 17:11 | XMS_ITS | Encounter Summary ---
:1970 Author Organization [facility] Address [address] [place] [address] Care Team Providers Name Role Phone Lilian Persaud DO Primary Care Provider Reason for Visit Reason Comments Refill Encounter Details Date Type Department Care Team Description 05/04/2012 Refill [facility] Lilian Persaud, Refill [address] [address] [place] [address] [place] [address] [phone] (Wo rk) Social History Tobacco Use Types [...] User: DENITA REYES Appt scheduled for 05/09/12. UNICATIONS MANAGER Cordelia Leyva RN - 05/05/2012 9:26 AM CST last OV 02/01/12. Plan was to see patient and have labs done in 3 months. Left message to call back to schedule appt. documented in this encounter Plan of Treatment Not on filedocumented as of this encounter Visit Diagnoses Not on filedocumented in this encounter Care Teams Jitney Driver Relationship Specialty Start Date End Date Lilian Persaud DO PCP - General 12/23/10 05/16/12 [address] [place] [address] Vane Zarate Psychiatrsamantha Psychiatry 03/22/12 documented as of this encounter
--- OUTSIDE RECORDS SUMMARY | 2022-02-14 17:11 | XMS_ITS | Encounter Summary ---
:1970 Author Organization [facility] Address [address] [place] [address] Care Team Providers Name Role Phone Gagandeep Hinojosa MD Primary Care Provider Encounter Details Date Type Department Care Team Description 10/30/2012 Notes/Orders [facility] Estevan Isaacs MD Cardiology [address] [place] [address] [phone] Social History Tobacco Use Types Packs/Day Years Used Date Smoking Tobacco: Never Assessed Sex Assigned at Date Recorded Not on file documented as of this encounter Plan of Treatment Not on filedocumented as of this encounter Visit Diagnoses Not on filedocumented in this encounter Care Teams Advice Nurse Relationship Specialty Start Date End Date Gagandeep Hinojosa MD PCP - General 05/17/12 1415 [place] [address] Vane Zarate Psychiatrist Psychiatry 03/22/12 documented as of this encounter
--- OUTSIDE RECORDS SUMMARY | 2022-02-14 17:11 | XMS_ITS | Encounter Summary ---
:1970 Author [address] [facility] Address [address] [address] Care Team Providers Name Role Phone Lilian Persaud DO Primary Care Provider Reason for Referral Specialty Diagnoses / Procedures Referred By Contact Refer red To Contact Gagandeep Hinojosa MD 1415 [place] [address] Referral ID Status Reason Start Date Expiration Date Visits Requ ested Visits Authorized AL OFFICE ASSISTANT Reason for Visit Reason Comments CONSULT MASS Encounter Details Date Type Department Care Team Description 04/10/2012 Initial Consult [place] 1515 Jim Farrell, Soft tis leydi mass; General Surgery Lipoma of other skin and subcutaneous ti ssue [address] [place] [address] [facility] [place] [address] [place] [phone] [id number] Social History Tobacco Use Types Packs/Day Years [...] 104.3 kg (230 lb) 04/10/2012 10:56 AM DENTAL OFFICE ASSISTANT Height 177.8 cm (5' 10) 04/10/2012 10:56 AM DENTAL OFFICE ASSISTANT Body Mass Index 33 04/10/2012 10:56 AM DENTAL OFFICE ASSISTANT documented in this encounter Progress Notes Jim [...] 5' 10 (177.8 cm) Wt 230 lb (956490 g) BMI 33.00 kg/m2 GENERAL APPEARANCE: iTmur Krishnamurthy is a normal appearing 42 y.o. [...] mood and affect congruent Imaging performed at [facility]: ULTRASOUND OF THE TWO PALPABLE LUMPS [...] ssue documented in this encounter Care Teams Strategic Insights Lead Relationship Specialty Start Date End Date Lilian Persaud DO PCP - General 12/23/10 05/16/12 1415 [place] [address] Vane Zarate Psychiatrsamantha Psychiatry 03/22/12 documented as of this encounter
--- OUTSIDE RECORDS SUMMARY | 2022-02-14 17:11 | XMS_ITS | Encounter Summary ---
:1970 Author Organization [facility] Address [address] [place] [address] Care Team Providers Name Role Phone Gagandeep Hionjosa MD Primary Care Provider Reason for Visit Reason Comments Appt. Needed Encounter Details Date Type Department Care Team Description 02/06/2013 Telephone [place] [facility] Gagandeep Hinojosa MD Appt. Needed 1415 [facility] . 1415 [facility] [place] [address] [place] [address] [phone] (Wo rk) Social History Tobacco Use Types Packs/Day Years Used Date Smoking Tobacco: Never Assessed Sex Assigned at Date Recorded Not on file documented as of this encounter Plan of Treatment Not on filedocumented as of this encounter Visit Diagnoses Not on filedocumented in this encounter Care Teams Oil Field Operator Relationship Specialty Start Date End Date Gagandeep Hinojosa MD PCP - General 05/17/12 1415 [place] [address] Vane Zarate Psychiatrist Psychiatry 03/22/12 documented as of this encounter
--- OUTSIDE RECORDS SUMMARY | 2022-02-14 17:11 | XMS_ITS | Encounter Summary ---
:1970 Author Organization [facility] [facility] Address [address] [place] [address] Care Team Providers Name Role Phone Gagandeep Hinojosa MD Primary Care Provider Encounter Details Date Type Department Care Team Description 05/17/2012 Lab Visit [place] [facility] Encounter for long-term [address] (current) [place] [address] medications [phone] Social History Tobacco Use Types Packs/Day Years Used Date Smoking Tobacco: Never Assessed Sex Assigned at Date Recorded Not on file documented as of this encounter Plan of Treatment Not on filedocumented as of this encounter Procedures Procedure Name Priority Date/Time Associated Diagnosis Comme nts CARNITINE FREE AND Routine 05/17/2012 10:35 Encounter for Resu lts for this TOTAL AM NEUROLOGY MANAGER long-term (current) procedur e are in use of other the results medications section. COMPLETE BLOOD Routine 05/17/2012 10:35 Encounter for Results for this COUNT-W/DIFF AM NEUROLOGY MANAGER long-term (current) procedur e are in use of other the results medications section. DIFFERENTIAL Routine 05/17/2012 10:35 Results for this AM NEUROLOGY MANAGER procedure are i n the results section. AMYLASE Routine 05/17/2012 10:35 Encounter for Results fo r this AM NEUROLOGY MANAGER long-term (current) procedur e are in use of other the results medications section. VALPROIC ACID Routine 05/17/2012 10:35 Encounter for Results f or this (DEPAKENE) AM NEUROLOGY MANAGER long-term (current) procedur e are in use of other the results medications section. LIPASE Routine 05/17/2012 10:35 Encounter for Results fo r this AM NEUROLOGY MANAGER long-term (current) procedur e are in use of other the results medications section. AMMONIA Routine 05/17/2012 10:35 Encounter for Results fo r this AM NEUROLOGY MANAGER long-term (current) procedur e are in use of other the results medications section. ALT (SGPT) Routine 05/17/2012 10:35 Encounter for Results fo r this AM NEUROLOGY MANAGER long-term (current) procedur e are in use of other the results medications section. AST Routine 05/17/2012 10:35 Encounter for Results fo r this AM NEUROLOGY MANAGER long-term (current) procedur e are in use of other the results medications section. documented in this encounter Results Differential (05/17/2012 10:35 AM NEUROLOGY MANAGER) athologist Signature Absolute 2.7 1.8 - 8.0 [...] / Volume Laterality 05/17/2012 10:35 05/17/2012 AM NEUROLOGY MANAGER 10:35 AM NEUROLOGY MANAGER Narrative HP CONVERSION - 05/17/2012 11:04 AM NEUROLOGY [place] [address] Vane Zarate MD LAB_1 Performing Organization Address City/State/ZIP Code Phon e Number HP CONVERSION CARNITINE FREE AND TOTAL (05/17/2012 10:35 AM NEUROLOGY MANAGER) athologist Signature Carnitine, Free 29 25 - 60 HP CONVERSION umol/L Carnitine, 41 34 - 86 HP CONVERSION Total umol/L Carnitine 12 5 - 29 HP CONVERSION Esterified umol/L Carnitine 0.4 0.1 - 1.0 HP CONVERSION Kristen/Free Ratio Specimen Anatomical Collection Method Collection Time Receive d Time (Source) Location / / Volume Laterality 05/17/2012 10:35 05/17/2012 9:11 AM NEUROLOGY MANAGER PM NEUROLOGY MANAGER Narrative HP CONVERSION - 05/20/2012 8:41 AM NEUROLOGY MANAGER Performed at [facility] [address] [place] [address] Vane Zarate MD LAB_1 Performing Organization Address City/State/ZIP Code Phon e Number HP CONVERSION Ammonia (05/17/2012 10:35 AM NEUROLOGY MANAGER) athologist Signature Ammonia, Blood 43 0 - 44 HP CONVERSION umol/L Specimen Anatomical Collection Method Collection Time Receive d Time (Source) Location / / Volume Laterality 05/17/2012 10:35 05/17/2012 3:54 AM NEUROLOGY MANAGER PM NEUROLOGY MANAGER Vane Zarate MD LAB_1 Performing Organization Address City/State/ZIP Code Phon e Number HP CONVERSION Valproic Acid (Depakene) (05/17/2012 10:35 AM NEUROLOGY MANAGER) [facility] gist Method Time Signature Date Last Dose HP CONVERSION Valproic Acid Time Last Dose 0930 HP CONVERSION Valproic Acid Valproic 60 50 - 100 HP CONVERSION Acid/Depakene ug/mL (Valp) Specimen Anatomical Collection Method Collection Time Receive d Time (Source) Location / / Volume Laterality 05/17/2012 10:35 05/17/2012 4:01 AM NEUROLOGY MANAGER PM NEUROLOGY MANAGER Vane Zarate MD LAB_1 Performing Organization Address City/State/ZIP Code Phon e Number HP CONVERSION Lipase (05/17/2012 10:35 AM NEUROLOGY MANAGER) athologist Signature Lipase 69 5 - 70 U/L HP CONVERSION Specimen Anatomical Collection Method Collection Time Receive d Time (Source) Location / / Volume Laterality 05/17/2012 10:35 05/17/2012 3:06 AM NEUROLOGY MANAGER PM NEUROLOGY MANAGER Narrative HP CONVERSION - 05/17/2012 4:16 PM NEUROLOGY MANAGER Performed at [facility], [address] [place] [address] Vane Zarate MD LAB_1 Performing Organization Address City/State/ZIP Code Phon e Number HP CONVERSION Amylase (05/17/2012 10:35 AM NEUROLOGY MANAGER) athologist Signature Amylase Serum 40 25 - 115 HP CONVERSION U/L Specimen Anatomical Collection Method Collection Time Receive d Time (Source) Location / / Volume Laterality 05/17/2012 10:35 05/17/2012 3:06 AM NEUROLOGY MANAGER PM NEUROLOGY MANAGER Narrative HP CONVERSION - 05/17/2012 4:16 PM NEUROLOGY MANAGER Performed at [facility], [address] [place] [address] Vane Zarate MD LAB_1 Performing Organization Address [facility] Code Phon e Number HP CONVERSION ALT (SGPT) (05/17/2012 10:35 AM NEUROLOGY MANAGER) [facility] Method Time Signature Alanine 38 4 - 55 HP CONVERSION Aminotransferase U/L Specimen Anatomical Collection Method Collection Time Receive d Time (Source) Location / / Volume Laterality 05/17/2012 10:35 05/17/2012 3:06 AM NEUROLOGY MANAGER PM NEUROLOGY MANAGER Narrative HP CONVERSION - 05/17/2012 4:16 PM NEUROLOGY MANAGER Performed at [facility], [address] [place] [address] Vane Zarate MD LAB_1 Performing Organization Address [facility] Phon e Number HP CONVERSION AST (05/17/2012 10:35 AM NEUROLOGY MANAGER) [facility] Method Time Signature Aspartate 32 0 - 45 HP CONVERSION Aminotransferase U/L Specimen Anatomical Collection Method Collection Time Receive d Time (Source) Location / / Volume Laterality 05/17/2012 10:35 05/17/2012 3:06 AM NEUROLOGY MANAGER PM NEUROLOGY MANAGER Narrative HP CONVERSION - 05/17/2012 4:16 PM NEUROLOGY MANAGER Performed at [facility], [address] [place] [address] Vane Zarate MD LAB_1 Performing Organization Address [facility] Phon e Number HP CONVERSION Hemogram/Plts/Diff (05/17/2012 10:35 AM NEUROLOGY MANAGER) P athologist Signature White Blood Cell 6.7 [...] / Volume Laterality 05/17/2012 10:35 05/17/2012 AM NEUROLOGY MANAGER 10:35 AM NEUROLOGY MANAGER Narrative HP CONVERSION - 05/17/2012 11:04 AM NEUROLOGY MANAGER Performed at [facility], [address] [place] [address] [address] Zarate at [phone], 05/20/2012,09: 43, by DANNY Vane Zarate MD LAB_1 Performing Organization Address City/State/ZIP Code Phon e Number HP CONVERSION documented in this encounter Visit Diagnoses Diagnosis Encounter for long-term (current) use of other medications documented in this encounter Care Teams Watch Leader Relationship Specialty Start Date End Date Gagandeep Hinojosa MD PCP - General 05/17/[address] [place] [address] [place] [id number] Vane Zarate Psychiatrist Psychiatry 03/22/12 documented as of this encounter
--- OUTSIDE RECORDS SUMMARY | 2022-02-14 17:11 | XMS_ITS | Encounter Summary ---
:1970 Author Organization [employer] Address [address] [place] [address] Care Team Providers Name Role Phone CoriLilian li Homa SAL Primary Care Provider Reason for Visit Reason Comments RESULTS, TEST Encounter Details Date Type Department Care Team Description 04/07/2012 Telephone [facility] Gagandeep Hinojosa MD RESULTS, TEST [address] [facility] . [address] [place] [address] [place] [address] [phone] (Wo rk) Social History Tobacco Use Types [...] forwarded to scheduling dept to contact pt INFO CONSULTANT Gagandeep Hinojosa MD - 04/07/2012 2:18 PM CST Call pt. U/S showeed no lesions. Would refer to general surgery. Refereral done INFO CONSULTANT Denita Reyes, RN - 04/07/2012 2:13 PM CST US results in [facility]. To Dr. Hinojosa for interpretation. INFO CONSULTANT Ale Fountain - 04/07/2012 2:06 PM CST Patient states had a ultrasound done on 04-06-12 and they did not find anything and asking if he should see doctor again for more tests. INFO CONSULTANT documented in this encounter Plan of Treatment Not on filedocumented as of this encounter Visit Diagnoses Diagnosis Soft tissue mass - Primary Disorders of soft tissue, unspecified documented in this encounter Care Teams Solid Center Winder Relationship Specialty Start Date End Date Lilian Persaud DO PCP - General 12/23/10 05/16/12 [address] [place] [address] Vane Zarate Psychiatrsamantha Psychiatry 03/22/12 documented as of this encounter
--- OUTSIDE RECORDS SUMMARY | 2022-02-14 17:11 | XMS_ITS | Encounter Summary ---
:1970 Author Organization [facility] Address [address] [place] [address] Care Team Providers Name Role Phone Gagandeep Hinojosa MD Primary Care Provider Reason for Visit Reason Comments Diabetes Encounter Details Date Type Department Care Team Description 05/17/2012 Office Visit Gagandeep Storm Type II or unspecified type diabetes mellitus without mention of complication, uncontrolled (Primary Dx); Romario Rubio MD Proteinuria; [address] Unspecified essential hypert ension; [place] [address] [address] Other and unspecified hyperlipidemia; [phone] [place] [address] Tobacco use disorder; [phone] Obesity, unspec ified (Work) Social History Tobacco Use Types Packs/Day Years Used Date Smoking Tobacco: Never Assessed Sex Assigned at Date Recorded Not on file documented as of this encounter Last Filed Vital Signs Vital Sign Reading Time Taken Comments Blood Pressure 139/97 05/17/2012 11:03 AM GREY WASHER omron Pulse 84 05/17/2012 10:54 AM GREY WASHER Temperature - - Respiratory Rate - - Oxygen Saturation - - Inhaled Oxygen Concentration - - Weight 104.8 kg (231 lb) 05/17/2012 10:54 AM GREY WASHER Height 177.8 cm (5' 10) 05/17/2012 10:54 AM GREY WASHER Body Mass Index 33.15 05/17/2012 10:54 AM GREY WASHER documented in this encounter Patient Instructions Patient [...] A normal value is less than 30. WASHER documented in this encounter Progress Notes Gagandeep [...] unspecified documented in this encounter Care Teams Aerospace Mechanic Relationship Specialty Start Date End Date Gagandeep Hinojosa MD PCP - General 05/17/12 14[address] [facility] [place] [address] Vane Zarate Psychiatrist Psychiatry 03/22/12 documented as of this encounter
--- OUTSIDE RECORDS SUMMARY | 2022-02-14 17:12 | XMS_ITS | Encounter Summary ---
:1970 Author Organization [employer] Address [address] [place] [address] Care Team Providers Name Role Phone Cori Rolando Luther DO Primary Care Provider Reason for Visit Reason Comments Coronary Artery Disease (CAD) Encounter Details Date Type Department Care Team Description 09/16/2011 Office Visit [facility] Stevenson Greene, Cor athrscl-uns vessel; [address] [place] Other disorders of lipoid metabolism; [address] DM w/o complication type II, uncontrolle d; [place] [address] [place], [place] Nonspecific abnormal results of liver function study; [phone] S/P angioplasty with stent; [phone] (Wo rk) [place], old; History o f PTCA; Morbid obesity [...] 2:58 PM CDT call with any questions [phone] Keri RN documented in this encounter Progress Notes Stevenson Greene MD - 09/16/2011 3:07 PM CDT Progress Notes signed by Stevenson Greene MD at 09/17/11925 Author: Stevenson Greene MD Service: (none) Author Type: Physician Filed: 09/17/11925 Note Time: 09/16/111506 Status: Signed Senior Patrol Agent: Stevenson Greene MD (Physician) NAME: SHARLENE VARNER MR#: [id number] CSN: [id number] AUTHENTICATING CLINICIAN: Stevenson Greene MD CONFIRM #: [id number] LOC: 3205 CLINIC PROGRESS NOTE DATE OF VISIT: 09/16/2011 : 1970 CHIEF COMPLAINT: Followup for coronary artery disease, issues with medications. HISTORY OF PRESENT ILLNESS: Mr. Varner is a 41-year-old male with diabetes mellitus, dyslipidemia, a previous history of smoking, who had been admitted to [facility] for a myocardial infarction in the beginning [...] factor modifications. CC: ROLANDO PERSAUD DO [address] [facility] [place] [address] MKK:BREANNA C: CONFIRM #: [id number] documented in this encounter Plan of Treatment Not on filedocumented as of this encounter Visit Diagnoses Diagnosis Coronary atherosclerosis of unspecified type of vessel, [place] or graft (HRC) Coronary atherosclerosis of unspecified type of vessel, [place] or graft 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 Type II or unspecified type diabetes jasen litus without mention of complication, uncontrolled Nonspecific abnormal results of liver fu nction study S/P angioplasty with stent Postsurgical percutaneous transluminal c oronary angioplasty status [place], old (HRC) Old myocardial infarction History of PTCA Postsurgical percutaneous transluminal c oronary angioplasty status Morbid obesity (HRC) Morbid obesity documented in this encounter Care Teams Media Relations Intern Relationship Specialty Start Date End Date Rolando Persaud DO PCP - General 12/23/10 05/16/12 [facility] [facility] [place] [address] documented as of this encounter
--- OUTSIDE RECORDS SUMMARY | 2022-02-14 17:12 | XMS_ITS | Encounter Summary ---
:1970 Author Organization [employer] Address [address] [place] [address] Care Team Providers Name Role Phone Lilian Persaud DO Primary Care Provider Reason for Visit Reason Comments Patient Calling Back Encounter Details Date Type Department Care Team Description 06/11/2011 Telephone [facility] Lilian Persaud DO Patient Calling Back Medicine [address] [facility] [address] [place] [address] [place] [address] [phone] Social History Tobacco Use Types Packs/Day Years Used Date Smoking Tobacco: Never Assessed Sex Assigned at Date Recorded Not on file documented as of this encounter Nursing Notes Jacqueline Vizcaino - 06/15/2011 2:35 PM CST pt informed of the dose changes and will f/u on Tuesday with his readings-pt understood changes and had no further questions. FING MGR Lilian Persaud DO - 06/15/2011 2:21 PM CST I was able to speak with retail salesperson engraving supervisor who rec increase Lantus from 50 to 60 units subcutaneous q HS. Also, increase Novolog from 12 units to 20 units TID with meals. Have him call Tuesday am with BS readings. Pt will get a call to see endocrine early than his July appointment. FING MGR Marci Oliveira RN - 06/15/2011 10:52 AM CST Pt calling back with update on BS and medication dosing; pt has been taking Novolog 12 U TID and Lantus 50U at HS. 06/13: BS at 0700 304, 5p 320, and 10p 393, 06/14: BS 309,321,360 (same testing times) and today 06/15 thus far BS was 285. to PCP to review and advise FING MGR Andie Adams - 06/15/2011 10:46 AM CST [...] Novolog if low BS from newLantus pen. FING MGR Maximilian Ag - 06/11/2011 11:29 AM CST Patient calling to report recent blood sugars Has been taking Lantus and Novonlog and Metformin Numbers are on 06/08 AM 295 PM 315 Hs 340 On 06/09 AM 295 PM 393 HS 410 On 06/10 AM 300 PM 320 HS 392 On 06/11 AM 315 PLease call with plan of care Call [phone] Maximilian Ag - 06/11/2011 11:26 AM CST FING MGR Lori Winkler - 06/11/2011 11:21 AM CST Non -Symptom Message from Front Line Primary Care Provider: Lilian Persaud DO Message: calling in numbers from another blood test FING MGR documented in this encounter Plan of Treatment Not on filedocumented as of this encounter Visit Diagnoses Diagnosis Type II or unspecified type diabetes jasen litus without mention of complication, uncontrolled - Primary documented in this encounter Care Teams Hostess Host Relationship Specialty Start Date End Date Lilian Persaud DO PCP - General 12/23/10 05/16/12 [address] [place] [address] documented as of this encounter
--- OUTSIDE RECORDS SUMMARY | 2022-02-14 17:12 | XMS_ITS | Encounter Summary ---
:1970 Author Organization [employer] Address [address] [place] [address] Care Team Providers Name Role Phone Lilian Persaud DO Primary Care Provider Reason for Visit Reason Comments Refill Encounter Details Date Type Department Care Team Description 06/09/2011 Refill [facility] Lilian Persaud, Refill [address] [address] [place] [address] [place] [address] [phone] (Wo rk) Social History Tobacco Use Types [...] cardiology to review refill request on Plavix. GN STUDIO CONSULTANT Lilian Persaud DO - 06/11/2011 9:44 AM CST diabetes med and cholesterol med refilled. Plavix refill needs to go to cardiology. GN STUDIO CONSULTANT Sarah Leon - 06/10/2011 8:[address] Persaud to review refills of metformin, fenofibrate, plavix. plavix is not on RN list of refills. pt recently seen by cardiology. due for labs - orders in computer documented in this encounter Plan of Treatment Not on filedocumented as of this encounter Visit Diagnoses Not on filedocumented in this encounter Care Teams Lighter Captain Relationship Specialty Start Date End Date Lilian Persaud DO PCP - General 12/23/10 05/16/12 [address] [place] [address] documented as of this encounter
--- OUTSIDE RECORDS SUMMARY | 2022-02-14 17:12 | XMS_ITS | Encounter Summary ---
:1970 Author Organization [employer] Address [address] [place] [address] Care Team Providers Name Role Phone Lilian Persaud DO Primary Care Provider Reason for Visit Reason Comments [facility] Enrollment Encounter Details Date Type Department Care Team Description 03/22/2012 Nursing Visit Corby Reynolds Bipolar I d isorder, most recent episode (or current) unspecified; Medicine Type II or unspecified type diabetes mellitus without mention of complication, uncontrolled; [address] S/P angioplasty with stent [place] [address] Social History Tobacco Use Types Packs/Day Years Used Date Smoking Tobacco: Never Assessed Sex Assigned at Date Recorded Not on file documented as of this encounter Progress Notes Judy Pittman RN - 03/22/2012 4:28 PM CST Care Coordination Visit Pt: Timur Krishnamurthy Referred by: Lilian Persaud DO Reason for referral: [facility] Enrollment and Care Coordination Family/social [...] costs now that [facility].Rustam has been checking his BG tid since [...] his diabetes/heart health because of his previous ND and subsequent stent placement. Rustam currently sees a psychiatrist for his medication related to dx Bipolar Disorder. Rustam states that the Depakote and Risperdal both increase his BG. Referrals/recommended resources: I will check into medication resources including the [facility] and[facility]. Patient barrier(s) to learning identified: Finance and Emotional. SHARED PLAN: Rustam agreed to [facility] Enrollment and signed the paperwork. Rustam also completed the verbal disclosure form for [facility] and [facility] [...] Shopping Guide, Healthy Snacks, and My Food Value Stream Leader. I reviewed how managing CHO intake and [...] status documented in this encounter Care Teams Exercise Physiology Professor Relationship Specialty Start Date End Date Lilian Persaud DO PCP - General 12/23/10 05/16/12 [address] [place] [address] Vnae Zarate Psychiatrsamantha Psychiatry 03/22/12 documented as of this encounter
--- OUTSIDE RECORDS SUMMARY | 2022-02-14 17:12 | XMS_ITS | Encounter Summary ---
:1970 Author Organization [employer] Address [address] [place] [address] Care Team Providers Name Role Phone Lilian Persaud DO Primary Care Provider Reason for Visit Reason Comments YING Diabetes Encounter Details Date Type Department Care Team Description 09/01/2011 Office Visit [facility] Lilian Persaud, DM w/o complication type II, uncontrolled (Primary Dx); Medicine DO [facility] wart; [address] [facility] [address] [place] [address] [place], [place] [phone] [address] Social History Tobacco Use Types Packs/Day Years [...] Body Mass Index 33.33 06/07/2011 10:38 AM PARKING LOT ATTENDANT AND CASHIER documented in this encounter Progress Notes Lilian [...] is not able to afford endocrinology or community educator appts. Pt feels great, gained 4 [...] DESTRUCT BENIGN SKIN LESIONS UP TO 14 [address] Wart - DESTRUCT BENIGN SKIN LESIONS UP TO 14 [address] Other Orders - nicotine (NICODERM CQ) 21 [...] of warts today. patient advised to use [id number]-[id number] wart removal therapies between office visits. patient [...] unspecified documented in this encounter Care Teams Staffing Manager Relationship Specialty Start Date End Date Lilian Persaud DO PCP - General 12/23/10 05/16/12 [address] [place] [address] documented as of this encounter
--- OUTSIDE RECORDS SUMMARY | 2022-02-14 17:12 | XMS_ITS | Encounter Summary ---
:1970 Author Organization [employer] Address [address] [place] [address] Care Team Providers Name Role Phone Lilian Persaud DO Primary Care Provider Reason for Visit Reason Comments Information Encounter Details Date Type Department Care Team Description 06/25/2011 Telephone [facility] Lilian Persaud DO Information [address] [address] [place] [address] [place] [address] [phone] (Wo rk) Social History Tobacco Use Types Packs/Day Years Used Date Smoking Tobacco: Never Assessed Sex Assigned at Date Recorded Not on file documented as of this encounter Nursing Notes Jacqueline Herrera LPN - 06/25/2011 3:26 PM CST LM with info. INAL GAUGER Lilian Persaud DO - 06/25/2011 1:49 PM CST Looking back on notes, his sugars are finally starting to come down. Have pt increase Lantus to 75 units subcutaneous at hs. Have pt increase Novolog at 28 units tid with meals. Call Tuesday with BS readings. INAL GAUGER Tatyana Christian RN - 06/25/2011 11:11 AM CST Spoke with pt. Pt is calling to give Dr. Persaud updated blood glucose readings 06/22 282 am, 330 @4-5 pm, 370 @bedtime. 178 am, 268 @4-5pm and 341 @bedtime, 06/23 224 am, 279 @4-5 pm 331 @bedtime. Today 06/24 231 am. Please call pt back with plan. INAL GAUGER Joellen Holm. - 06/25/2011 11:03 AM CST Non -Symptom Message from Front Line Primary Care Provider: Lilian Persaud DO Message: pt calling to give blood sugar test results to nurse. INAL GAUGER documented in this encounter Plan of Treatment Not on filedocumented as of this encounter Visit Diagnoses Diagnosis Type II or unspecified type diabetes jasen litus without mention of complication, uncontrolled - Primary documented in this encounter Care Teams Block Breaker Operator Relationship Specialty Start Date End Date Lilian Persaud DO PCP - General 12/23/10 05/16/12 [address] [place] [address] documented as of this encounter
--- OUTSIDE RECORDS SUMMARY | 2022-02-14 17:12 | XMS_ITS | Encounter Summary ---
:1970 Author Organization [employer] Address [address] [place] [address] Care Team Providers Name Role Phone Lilian Persaud DO Primary Care Provider Encounter Details Date Type Department Care Team Description 02/01/2012 Lab Visit [facility] Coronary atherosclerosis of unspecified type of vessel, [place] or graft; [address] Other disorders of lipoid me tabolism; [place] Vigil [address] Nonspecific abnormal results of liver function study; [phone] S/P angioplasty with stent Social History Tobacco [...] he is taking. Is he taking gemfibrozil? JOCKEY Miscellaneous - 06/04/2016 1:59 PM CSTNotes Recorded by Stevenson Greene MD on 02/02/2012 at 2:02 PMPlease verify what he is taking. Is he taking gemfibrozil? JOCKEY Miscellaneous - 06/04/2016 1:59 PM CSTNotes Recorded by Stevenson Greene MD on 02/02/2012 at 2:02 PMPlease verify what he is taking. Is he taking gemfibrozil? JOCKEY Miscellaneous - 06/04/2016 1:59 PM CSTNotes Recorded by Stevenson Greene MD on 02/02/2012 at 2:02 PMPlease verify what he is taking. Is he taking gemfibrozil? JOCKEY documented in this encounter Plan of Treatment Not on filedocumented as of this encounter Procedures Procedure Name Priority Date/Time Associated Diagnosis Comme nts LIPID PANEL AND Routine 02/01/2012 12:00 Coronary Results for this DIRECT LDL(IF PM CDT atherosclerosis of procedur e are in NEEDED) unspecified type of the resu lts vessel, [place] or graft sect ion. (HRC) Other disorders of lipoid metabolis m (HRC) Nonspecific abnormal results of liver function study S/P angioplasty with stent ALT (SGPT) Routine 02/01/2012 12:00 Coronary Results for this PM CDT atherosclerosis of procedure are in unspecified type of the resu lts vessel, [place] or graft sect ion. ([facility]C) Other disorders of lipoid metabolis m (HRC) Nonspecific abnormal results of liver function study S/P angioplasty with stent AST Routine 02/01/2012 12:00 Coronary Results for this PM CDT atherosclerosis of procedure are in unspecified type of the resu lts vessel, [place] or graft sect ion. (HRC) Other disorders of lipoid metabolis m (HRC) Nonspecific abnormal results of liver function study S/P angioplasty with stent CK, TOTAL Routine 02/01/2012 12:00 Coronary Results for this PM CDT atherosclerosis of procedure are in unspecified type of the resu lts vessel, [place] or graft sect ion. (HRC) Other disorders [...] - 02/01/2012 4:14 PM CDT Performed at [facility], [address] [place] [address] Transcriptions 06/04/2016 1:59 PM CSTNotes Recorded by Stevenson Greene MD on 02/02/2012 at 2:02 PMPlease verify what he is taking. Is he taking gemfibrozil? Stevenson Greene MD LAB_1 Performing Organization Address [facility] Phon e Number HP CONVERSION (ABNORMAL) ALT (SGPT) (02/01/2012 12:00 PM CDT) [facility] Method Time Signature Alanine 73 (H) 4 - 55 HP CONVERSION Aminotransferase U/L Specimen Anatomical Collection Method Collection Time Receive d Time (Source) Location / / Volume Laterality 02/01/2012 12:00 02/01/2012 3:05 PM CDT PM CDT Narrative HP CONVERSION - 02/01/2012 4:14 PM CDT Performed at [facility], [address] [place] [address] Transcriptions 06/04/2016 1:59 PM CSTNotes Recorded by Stevenson Greene MD on 02/02/2012 at 2:02 PMPlease verify what he is taking. Is he taking gemfibrozil? Stevenson Greene MD LAB_1 Performing Organization Address City/[facility] Phon e Number HP CONVERSION (ABNORMAL) AST (02/01/2012 12:00 PM CDT) [facility] Method Time Signature Aspartate 55 (H) 0 - 45 HP CONVERSION Aminotransferase U/L Specimen Anatomical Collection Method Collection Time Receive d Time (Source) Location / / Volume Laterality 02/01/2012 12:00 02/01/2012 3:05 PM CDT PM CDT Narrative HP CONVERSION - 02/01/2012 4:14 PM CDT Performed at [facility], [address] [place] [address] Transcriptions 06/04/2016 1:59 PM CSTNotes Recorded by Stevenson Greene MD on 02/02/2012 at 2:02 PMPlease verify what he is taking. Is he taking gemfibrozil? Stevenson Greene MD LAB_1 Performing Organization Address [facility] Phon e Number HP CONVERSION (ABNORMAL) Lipid Panel and Direct LDL(If Needed) (02/01/2012 12:00 PM CDT) [facility] gist Method Time Signature Cholesterol 203 [...] - 02/01/2012 4:14 PM CDT Performed at [facility], [address] [place] [address] Transcriptions 06/04/2016 1:59 PM CSTNotes Recorded by Stevenson Greene MD on 02/02/2012 at 2:02 PMPlease verify what he is taking. Is he taking gemfibrozil? Stevenson Greene MD LAB_1 Performing Organization Address [facility] Phon e Number HP CONVERSION documented in this encounter Visit Diagnoses Diagnosis Coronary atherosclerosis of unspecified type of vessel, [place] or graft (HRC) Coronary atherosclerosis of unspecified type of vessel, [place] or graft 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 Nonspecific abnormal results of liver fu nction study S/P angioplasty with stent Postsurgical percutaneous transluminal c oronary angioplasty status documented in this encounter Care Teams Harness Tier Relationship Specialty Start Date End Date Lilain Persaud DO PCP - General 12/23/10 05/16/12 1415 [place]ARE[place] [address] documented as of this encounter
--- OUTSIDE RECORDS SUMMARY | 2022-02-14 17:12 | XMS_ITS | Encounter Summary ---
:1970 Author Organization [email or web address] Address [address] [place] [address] Care Team Providers Name Role Phone Lilian Persaud DO Primary Care Provider Reason for Visit Reason Comments Other Encounter Details Date Type Department Care Team Description 06/22/2011 Telephone [facility] Lilian Persaud, Other [address] [address] [place] [address] [place] [address] [phone] (Wo rk) Social History Tobacco Use Types Packs/Day Years Used Date Smoking Tobacco: Never Assessed Sex Assigned at Date Recorded Not on file documented as of this encounter Nursing Notes Freya Hess - 06/22/2011 1:25 PM CST Informed pt of Dr. Persaud's instructions per below. Pt. acknowledges and understands and stated that he will call Tuesday with his results. CHER LARD Lilian Persaud DO - 06/22/2011 1:00 PM CST Increase Lantus to 70 units subcutaneous nightly and Novolog to 26 units TID with meals. Call Tuesdaywith results. CHER LARD Tatyana Christian RN - 06/22/2011 12:44 PM [...] 06/[address] Persaud to review. CHER LARD Joellen Holm. - 06/22/2011 12:34 PM CST Non -Symptom Message from Front Line Primary Care Provider: Lilian Persaud DO Message: pt calling to give us the results of his diabetic blood sugar test would like to speak to nurse. CHER LARD documented in this encounter Plan of Treatment Not on filedocumented as of this encounter Visit Diagnoses Diagnosis Type II or unspecified type diabetes jasen litus without mention of complication, uncontrolled - Primary documented in this encounter Care Teams Manager Sustainability Relationship Specialty Start Date End Date Lilian Persaud DO PCP - General 12/23/10 05/16/12 1415 [place] [address] documented as of this encounter
--- OUTSIDE RECORDS SUMMARY | 2022-02-14 17:12 | XMS_ITS | Encounter Summary ---
:1970 Author Organization [employer] Address [address] [place] [address] Care Team Providers Name Role Phone Lilian Persaud Primary Care Provider Reason for Visit Reason Comments RESULTS, TEST Encounter Details Date Type Department Care Team Description 02/02/2012 Telephone [facility] Stevenson Greene MD RESULTS, TEST [address] [place] [address] [place], [place] [address] (Wo rk) Social History Tobacco Use Types [...] documented in this encounter Care Teams Manufacturing Management Associate Relationship Specialty Start Date End Date Lilian Persaud DO PCP - General 12/23/10 05/16/12 1415 [place] [address] documented as of this encounter
--- OUTSIDE RECORDS SUMMARY | 2022-02-14 17:12 | XMS_ITS | Encounter Summary ---
:1970 Author Organization [facility] Address [address], [place] [address] Care Team Providers Name Role Phone Lilian Persaud DO Primary Care Provider Reason for Visit Reason Comments Appt. Needed Encounter Details Date Type Department Care Team Description 06/15/2011 Telephone [facility] [address] Rosalinda Calhoun cca, MD Appt. Needed Endocrinology [address] [place] [address] [place], [place] [address] [phone] Social History Tobacco Use Types Packs/Day Years [...] on filedocumented in this encounter Care Teams Ground Control Approach Technician Relationship Specialty Start Date End Date Lilian Persaud DO PCP - General 12/23/10 05/16/12 [address] [place] [address] documented as of this encounter
--- OUTSIDE RECORDS SUMMARY | 2022-02-14 17:12 | XMS_ITS | Encounter Summary ---
:1970 Author Organization [facility] [facility] Address [address], [place] [address] Care Team Providers Name Role Phone Lilian Persaud DO Primary Care Provider Reason for Visit Reason Comments Diabetes WART Fungus Encounter Details Date Type Department Care Team Description 08/11/2011 Office Visit [facility] Lilian Persaud, DM w/o complication type II, uncontrolled (Primary Dx); Medicine DO Dermatophytosis of the body; [address] [address] [address]INA C T Plantar wart; [address] [place], [place] Wart; [place] [address] Other disorders of lipoid metabolism [phone] Social History Tobacco Use Types Packs/Day Years [...] Body Mass Index 32.75 06/07/2011 10:38 AM GLASS BLOCK BENDER documented in this encounter Patient Instructions Patient [...] up multiple issues. 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
--- OUTSIDE RECORDS SUMMARY | 2022-02-14 17:12 | XMS_ITS | Encounter Summary ---
:1970 Author Organization [employer] Address [address] [place] [address] Care Team Providers Name Role Phone Lilian Persaud DO Primary Care Provider Reason for Visit Reason Comments Diabetes Encounter Details Date Type Department Care Team Description 03/29/2012 [facility]ian Persaud DO Diabetes [address] [facility] . [address] [place] [address] [place] [address] [phone] (Wo rk) Social History Tobacco Use Types Packs/Day Years Used Date Smoking Tobacco: Never Assessed Sex Assigned at Date Recorded Not on file documented as of this encounter Nursing Notes Judy Pittman RN - 03/29/2012 10:42 AM CST Left a message for Rustam for a return call. Please transfer to [phone]. RN Fire Battalion Chief - Diabetes Phone Follow-Up Current diabetes medication [...] his last visit, but he did go [id number] yesterday morning. He thinks the increase in [...] follow up appt. I printed off the [employer] Patient Assistance application to complete at the follow up visit. Rustam verbalized understanding and agreed with plan of care and follow up. documented in this encounter Plan of Treatment Not on filedocumented as of this encounter Visit Diagnoses Not on filedocumented in this encounter Care Teams Silver Buffer Relationship Specialty Start Date End Date Lilian Persaud DO PCP - General 12/23/10 05/16/12 1415 [place]ARE[place] [address] V[facility] Zarate Psychiatrs[facility] Psychiatry 03/22/12 documented as of this encounter
--- OUTSIDE RECORDS SUMMARY | 2022-02-14 17:12 | XMS_ITS | Encounter Summary ---
:1970 Author Organization [employer] Address [address] [place] [address] Care Team Providers Name Role Phone Lilian Persaud DO Primary Care Provider Reason for Visit Reason Comments RESULTS, TEST Encounter Details Date Type Department Care Team Description 06/18/2011 [facility]ian Persaud DO RESULTS, TEST [address] [facility] [address] [address] [place] [address] [place] [address] [phone] (Wo rk) Social History Tobacco Use Types Packs/Day Years Used Date Smoking Tobacco: Never Assessed Sex Assigned at Date Recorded Not on file documented as of this encounter Nursing Notes Jacqueline Herrera LPN - 06/18/2011 1:35 PM CST Pt. informed. NING AND DOCUMENTATION SPECIALIST Lilian Persaud DO - 06/18/2011 12:54 PM CST Increase Lantus from 60 units nightly to 65 units nightly. Increase NovoLog from 20 units t.i.d. with meals to 24 units t.i.d. with meals. Have patient call Tuesday with blood sugar readings. Please check to see the patient is aware of his earlier appointment with Dr. Calhoun with endocrine,who I have discussed his case with. NING AND DOCUMENTATION SPECIALIST Sarah Leon - 06/18/2011 12:45 PM CST calling to report his blood sugars as you had asked him to do. 06/15 am was 285, afternoon 310 and bedtime 355. 06/16 am298,afternoon 320, [id number], 06/17 am302, afternoon 322 and bedtime 370 and this morning it was 264. please call with plan NING AND DOCUMENTATION SPECIALIST Jo Cruz - 06/18/2011 12:35 PM CST Non -Symptom Message from Front Line Primary Care Provider: Lilian Persaud DO Message: Pt requesting his blood sugar test results. NING AND DOCUMENTATION SPECIALIST documented in this encounter Plan of Treatment Not on filedocumented as of this encounter Visit Diagnoses Diagnosis Type II or unspecified type diabetes jasen litus without mention of complication, uncontrolled - Primary documented in this encounter Care Teams Bitumen Plant Operator Relationship Specialty Start Date End Date Lilian Persaud DO PCP - General 12/23/10 05/16/12 1415 [place] [address] documented as of this encounter
--- OUTSIDE RECORDS SUMMARY | 2022-02-14 17:12 | XMS_ITS | Encounter Summary ---
:1970 Author Organization [employer] Address [address] [place] [address] Care Team Providers Name Role Phone Lilian Persaud DO Primary Care Provider Reason for Visit Reason Comments Care Coordination Encounter Details Date Type Department Care Team Description 03/09/2012 [facility] Lilian [facility]aud, Care Coordination [address] [facility] . [address] [place] [address] [place] [address] [phone] (Wo rk) Social History Tobacco Use Types Packs/Day Years Used Date Smoking Tobacco: Never Assessed Sex Assigned at Date Recorded Not on file documented as of this encounter Nursing Notes Judy Pittman RN - 03/14/2012 1:12 PM CST Return phone call from Timurrey. [place] states he and his have recently returned from [place] and he is interested in care coordination. Rustam notes his BG has been elevated because he has been forced to ration his insulin due to financial constraints. Rustam knows his last A1c was high at 10.6. Rustam is currently using the generic Relion brand from [employer], but has fallen into the Medicare doughnut hole and cannot afford his insulin. Rustam is also interested in working on his diet. I scheduled an appt for care coordination on 03/22/12. I provided my contact information. Judy Pittman RN - 03/09/2012 10:06 AM CST I left a message for Timur asking for a return call with an update on his status. Please transferto [phone]. documented in this encounter Plan of Treatment Not on filedocumented as of this encounter Visit Diagnoses Not on filedocumented in this encounter Care Teams Sanitation Inspector Relationship Specialty Start Date End Date Lilian Persaud DO PCP - General 12/23/10 05/16/12 1415 [facility] [place] RAWLS [address] documented as of this encounter
--- OUTSIDE RECORDS SUMMARY | 2022-02-14 17:12 | XMS_ITS | Encounter Summary ---
:1970 Author Organization [employer] Address [address] [place] [address] Care Team Providers Name Role Phone Lilian Persaud DO Primary Care Provider Reason for Visit Reason Comments Information Encounter Details Date Type Department Care Team Description 08/06/2011 [facility]phone [facility] Lilian Persaud DO Information [address] [address] [place] [address] [place] [address] [phone] (Wo rk) Social History Tobacco Use Types [...] he set up an appointment with an Machine Scallop Cutter () for follow up on his diabetes [...] and dinner Please encourage him to see switch coupler for follow up and med management. Call [...] Primary documented in this encounter Care Teams Endocrinology Teacher Relationship Specialty Start Date End Date Lilian Persaud DO PCP - General 12/23/10 05/16/12 1415 [place] [address] documented as of this encounter
--- OUTSIDE RECORDS SUMMARY | 2022-02-14 17:12 | XMS_ITS | Encounter Summary ---
:1970 Author Organization [employer] Address [address] [address] Care Team Providers Name Role Phone Rolando Lopez DO Primary Care Provider Reason for Referral Specialty Diagnoses / Procedures Referred By Contact [place] [address] [place] [address] Referral ID Status Reason Start Date Expiration Date Visits Requ ested Visits Authorized Reason for Visit Reason Comments Diabetes Encounter Details Date Type Department Care Team Description 07/06/2011 Initial Consult [facility] [address] Ceci Calhoun DM w/o complication Endocrinology MD Simi type II, uncontrolled [address] [place] [address] (Primary Dx) [place] [id number] Social History Tobacco Use Types Packs/Day Years [...] Body Mass Index 32.11 06/07/2011 10:38 AM DENTAL ASSISTANT INSTRUCTOR documented in this encounter Progress Notes Ceci Calhoun MD - 07/06/2011 6:00 PM CDT Progress Notes signed by Ceci Calhoun MD at 07/23/11 5008 Author: Ceci Calhoun MD Service: (none) Author Type: Physician Filed: 07/23/11 8284 Note Time: 07/06/11 1800 Status: Signed Harnessmaker Apprentice: Ceci Calhoun MD (Physician) NAME: SHARLENE KRISHNAMURTHY MR#: [id number] CSN: [id number] AUTHENTICATING CLINICIAN: Ceci Calhoun MD CONFIRM #: [id number] LOC: 432 CLINIC PROGRESS NOTE DATE OF [...] 50 above 150. CC: ROLANDO LOPEZ, [address] [place] [address] RMM:MEDQ C: CONFIRM #: [id number] documented in this encounter Plan of Treatment [...] HEMOGLOBIN (HGB A1C) (07/06/2011 4:50 PM CDT) [facility] Method Time Signature Hemoglobin A1C, 10.6 (A) [...] documented in this encounter Care Teams Residential Real Estate Appraiser Relationship Specialty Start Date End Date Rolando Lopez DO PCP - General 12/23/10 05/16/12 1415 [place] [address] documented as of this encounter
--- OUTSIDE RECORDS SUMMARY | 2022-02-14 17:12 | XMS_ITS | Encounter Summary ---
:1970 Author Organization [facility] Address [address] [place] [address] Care Team Providers Name Role Phone Lilian Persaud DO Primary Care Provider Reason for Visit Reason Comments Appt. Needed Encounter Details Date Type Department Care Team Description 11/16/2011 Telephone [facility] Lilian Persaud DO Appt. Needed [address] [facility] . [address] [address] [place] Vigil [address] [place] [address] [phone] (Wo rk) Social History Tobacco Use Types [...] on filedocumented in this encounter Care Teams Glass Belt Sander Relationship Specialty Start Date End Date Lilian Persaud DO PCP - General 12/23/10 05/16/12 14[address] [facility] [place] [address] documented as of this encounter
--- OUTSIDE RECORDS SUMMARY | 2022-02-14 17:12 | XMS_ITS | Encounter Summary ---
:1970 Author Organization [email or web address] Address [address] [place] [address] Care Team Providers Name Role Phone Lilian Persaud DO Primary Care Provider Reason for Visit Reason Comments RESULTS, TEST Encounter Details Date Type Department Care Team Description 06/08/2011 Telephone [facility] Lilian Persaud DO RESULTS, TEST [address] [facility] [address] [address] [place] [address] [place] [address] [phone] (Wo rk) Social History Tobacco Use Types [...] had no changes. Informed of new orders. RHANGER Lilian Persaud DO - 06/08/2011 1:02 PM [...] sugar readings as usual on Tuesday morning. RHANGER Ysabel Rosales - 06/08/2011 12:[address] Persaud to address. Patient calling back with blood sugar reading for past 3 days. Has been taking Lantus/Novolog insulin as instructed in note 06/04/11. Monday 06/05: fasting 269, pre-dinner 325, bedtime 379 Tuesday 06/06: fasting 345, pre-dinner 410 and bedtime 425. Wednesday 06/07: fasting 286, pre-dinner 432 and bedtime 450 Thursday 06/08: fasting 295. RHANGER Andie Adams - 06/08/2011 11:54 AM CST pt calling in his blood sugar test results RHANGER documented in this encounter Plan of Treatment Not on filedocumented as of this encounter Visit Diagnoses Diagnosis Type II or unspecified type diabetes jasen litus without mention of complication, uncontrolled - Primary documented in this encounter Care Teams Color Maker Relationship Specialty Start Date End Date Lilian Persaud DO PCP - General 12/23/10 05/16/12 1415 [place] [address] documented as of this encounter
--- OUTSIDE RECORDS SUMMARY | 2022-02-14 17:12 | XMS_ITS | Encounter Summary ---
:1970 Author Organization [employer] Address [address] [address] Care Team Providers Name Role Phone Cori, Lilian Luther DO Primary Care Provider Encounter Details Date Type Department Care Team Description 11/10/2011 Hospital Encounter Heart & Vascular Chest pain, unspecified; [facility]-u ns vessel Cardiology [address] [facility] [place] [address] Social History Tobacco Use Types [...] resul ts unspecified type of section. vessel, [place] or graft ([facility]C) documented in this encounter [...] Coronary atherosclerosis of unspecified type of vessel, [place] or graft (HRC) Coronary atherosclerosis of unspecified type of vessel, [place] or graft documented in this encounter Care Teams Carding Supervisor Relationship Specialty Start Date End Date Lilian Persaud DO PCP - General 12/23/10 05/16/12 1415 [place] NEV[place] [address] documented as of this encounter
--- OUTSIDE RECORDS SUMMARY | 2022-02-14 17:12 | XMS_ITS | Encounter Summary ---
:1970 Author Organization [employer] Address [address] [place] [address] Care Team Providers Name Role Phone Lilian Persaud DO Primary Care Provider Reason for Visit Reason Comments Medication Refill Question Encounter Details Date Type Department Care Team Description 08/31/2011 [facility]ian [facility]aud, Medicat ion Refill Medicine DO Question [address] [address] [place] [address] [place] [address] [phone] (Wo rk) Social History Tobacco Use Types Packs/Day Years Used Date Smoking Tobacco: Never Assessed Sex Assigned at Date Recorded Not on file documented as of this encounter Nursing Notes Freya Hess - 08/31/2011 3:57 PM CDT Left for [facility] and gave diagnosis code of 250.02 for pt's rx. Also left PN main# [id number] to call back if they have any questions. Ok to give out dx code if they call again, or ok to transfer to my extension [id number]. Lilian Persaud DO - 08/31/2011 3:48 PM CDT diagnosis code 250.02 Maximilian Ag - 08/31/2011 3:17 PM CDT Patient calling back Uses insulin by syringe- NO PUMP [facility] Has enough till mail order arrives Marci Oliveira, RN - 08/31/2011 2:23 PM CDT Left general message at number above to return call, advised to call [phone], also called and LMTCB for the pt [...] filedocumented in this encounter Care Teams Industrial Therapist Relationship Specialty Start Date End Date Lilian Persaud DO PCP - General 12/23/10 05/16/12 1415 [address] [address] documented as of this encounter
--- OUTSIDE RECORDS SUMMARY | 2022-02-14 17:12 | XMS_ITS | Encounter Summary ---
:1970 Author Organization [facility] Address [address] [place] [address] Care Team Providers Name Role Phone Lilian Persaud DO Primary Care Provider Reason for Visit Reason Comments Appt. Needed Encounter Details Date Type Department Care Team Description 01/25/2012 Telephone [facility] Lilian Persaud DO Appt. Needed [address] [facility] . [address] [facility] [place] [address] [place] [address] [phone] (Wo rk) Social History Tobacco Use Types [...] on filedocumented in this encounter Care Teams Microfilm Equipment Inspector Relationship Specialty Start Date End Date Lilian Persaud DO PCP - General 12/23/10 05/16/12 1415 [facility] [place] [place] [address] documented as of this encounter
--- OUTSIDE RECORDS SUMMARY | 2022-02-14 17:12 | XMS_ITS | Encounter Summary ---
:1970 Author Organization [employer] Address [address] [place] [address] Care Team Providers Name Role Phone Lilian Persaud DO Primary Care Provider Reason for Visit Reason Comments UPDATE Encounter Details Date Type Department Care Team Description 08/27/2011 Telephone [facility] Lilian Persaud DO UPDATE [address] [address] [place] [address] [place] [address] [phone] (Wo rk) Social History Tobacco Use Types [...] from this past week. Timur Leyva (Self) [phone] (H) y-vm documented in this encounter Plan of Treatment Not on filedocumented as of this encounter Visit Diagnoses Diagnosis Type II or unspecified type diabetes jasen litus without mention of complication, uncontrolled - Primary documented in this encounter Care Teams Public Relations Writer Relationship Specialty Start Date End Date Lilian Persaud DO PCP - General 12/23/10 05/16/12 [address] [address] documented as of this encounter
--- OUTSIDE RECORDS SUMMARY | 2022-02-14 17:12 | XMS_ITS | Encounter Summary ---
:1970 Author Organization [employer] Address [address] [place] [address] Care Team Providers Name Role Phone Lilian Persaud DO Primary Care Provider Reason for Visit Reason Comments Diabetes Encounter Details Date Type Department Care Team Description 02/01/2012 Office Visit [facility] Lilian Persaud, Type II or unspecified type diabetes mellitus without mention of complication, uncontrolled (Primary Dx); Medicine DO Other disorders of lipoid metabolism; 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 Patient [...] influenza documented in this encounter Care Teams Nuclear Instructor Relationship Specialty Start Date End Date Lilian Persaud DO PCP - General 12/23/10 05/16/12 [address] [address] documented as of this encounter
--- OUTSIDE RECORDS SUMMARY | 2022-02-14 17:12 | XMS_ITS | Encounter Summary ---
:1970 Author Organization [employer] Address [address] [place] [address] Care Team Providers Name Role Phone Lilian Persaud DO Primary Care Provider Reason for Visit Reason Comments Diabetes WART Encounter Details Date Type Department Care Team Description 11/02/2011 Office Visit [facility] Lilian Persaud, DM w/o complication type II, uncontrolled (Primary Dx); Medicine DO Plantar wart; [address] [place] [address] [place], [place] [phone] [address] Social History Tobacco Use Types Packs/Day Years [...] is still remaining. He has been using ofrc-avq-xipqfku salicylic acid treatments. Patient tolerated procedure last [...] DESTRUCT BENIGN SKIN LESIONS UP TO 14 [address]79 Wart - DESTRUCT BENIGN SKIN LESIONS UP TO 14 11659 Plan: 1. Liquid nitrogen was applied to [...] unspecified documented in this encounter Care Teams Restorer Lace And Textiles Relationship Specialty Start Date End Date Lilian Persaud DO PCP - General 12/23/10 05/16/12 [address] [address] documented as of this encounter
--- OUTSIDE RECORDS SUMMARY | 2022-02-14 17:12 | XMS_ITS | Encounter Summary ---
:1970 Author Organization [employer] Address [address] [place] [address] Care Team Providers Name Role Phone Lilian Persaud DO Primary Care Provider Encounter Details Date Type Department Care Team Description 02/01/2012 Lab Visit [facility] Type II or unspecified type [address] [facility] . diabetes mellitus without [place]ig[place] [address] mention of complication, uncontrolled Social History Tobacco [...] Homa Cori SAL LAB_1 Performing Organization Address [facility] Phon e Number HP CONVERSION documented in this encounter Visit Diagnoses Diagnosis Type II or unspecified type diabetes jasen litus without mention of complication, uncontrolled documented in this encounter Care Teams Janitorial Manager Relationship Specialty Start Date End Date Lilian Persaud DO PCP - General 12/23/10 05/16/12 1415 [place] [place] [address] documented as of this encounter
--- OUTSIDE RECORDS SUMMARY | 2022-02-14 17:12 | XMS_ITS | Encounter Summary ---
:1970 Author Organization [facility] Address [address] [place] [address] Care Team Providers Name Role Phone Lilian Persaud DO Primary Care Provider Reason for Visit Reason Comments Medication Refill Question Encounter Details Date Type Department Care Team Description 09/01/2011 [facility]phone [facility] Lilian [facility]aud, Medicat ion Refill Medicine DO Question [address] [address] [facility] [place] [address] [place] [address] [phone] (Wo rk) Social History Tobacco Use Types [...] filedocumented in this encounter Care Teams Fisher Dip Net Relationship Specialty Start Date End Date Lilian Persaud DO PCP - General 12/23/10 05/16/12 1415 [place] [place] [address] documented as of this encounter
--- OUTSIDE RECORDS SUMMARY | 2022-02-14 17:12 | XMS_ITS | Encounter Summary ---
:1970 Author Organization [facility] Address [address], [place] [address] Care Team Providers Name Role Phone Lilian Persaud DO Primary Care Provider Reason for Referral Specialty Diagnoses / Procedures Referred By Contact [place] [address] [place] [address] Referral ID Status Reason Start Date Expiration Date Visits Requ ested Visits Authorized Encounter Details Date Type Department Care Team Description 02/16/2012 Notes/Orders Lilian Camejo Other d isorders of lipoid metabolism; Medicine DO Coronary atherosclerosis of unspecified type of vessel, confederated yakama or graft; [address] [facility] [address] [address] Type II or unspecified type diabetes jasen litus without mention of complication, uncontrolled; [address] [place], [place] ASHD (arteriosclerotic heart disease); [place] [address] History of PTCA [phone] Social History Tobacco Use Types Packs/Day Years [...] atherosclerosis of unspecified type of vessel, confederated yakama or graft (HRC) Coronary atherosclerosis of unspecified type of vessel, confederated yakama or graft Type II or unspecified type diabetes jasen litus without mention of complication, uncontrolled ASHD (arteriosclerotic heart disease) (H RC) Coronary atherosclerosis of unspecified type of vessel, confederated yakama or graft History of PTCA Postsurgical percutaneous transluminal c oronary angioplasty status documented in this encounter Care Teams Sanding Machine Operator Or Tender Relationship Specialty Start Date End Date Lilian Persaud DO PCP - General 12/23/10 05/16/12 [address] [address] documented as of this encounter
--- OUTSIDE RECORDS SUMMARY | 2022-02-14 17:12 | XMS_ITS | Encounter Summary ---
:1970 Author Organization [facility] Address [address] [place] [address] Care Team Providers Name Role Phone Lilian Persaud DO Primary Care Provider Reason for Visit Reason Comments Chest Pain Encounter Details Date Type Department Care Team Description 08/19/2011 Nurse Triage [facility] Lilian Persaud DO Chest Pain [address] [address] [place] [address] [place] [address] [phone] (Wo rk) Social History Tobacco Use Types Packs/Day Years Used Date Smoking Tobacco: Never Assessed Sex Assigned at Date Recorded Not on file documented as of this encounter Nursing Notes Diane Hernández RN - 08/19/2011 5:32 PM CDT Protocol: CHEST EVMS-MGTOM-LY Affirmative: [1] Pain lasting > 5 minutes AND [2] age > 30 AND [3] at least one cardiac risk factor (i.e., hypertension, diabetes, obesity, smoker or strong family history of heart disease) Disposition of Call 911 suggested. Pt. calling, history of UT in 05/06.Pt. developed severe CP and numbness to left arm 1 hr. ago. Tookan ASA is not on Nitro. No sweating, no nausea. documented in this encounter Plan of Treatment Not on filedocumented as of this encounter Visit Diagnoses Not on filedocumented in this encounter Care Teams 3D Designer Relationship Specialty Start Date End Date Lilian Persaud DO PCP - General 12/23/10 05/16/12 [address] [address] documented as of this encounter
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
--- OUTSIDE RECORDS SUMMARY | 2022-02-14 17:12 | XMS_ITS | Encounter Summary ---
:1970 Author Organization [facility] Address [address] [address] Care Team Providers Name Role Phone Lilian Persaud DO Primary Care Provider Reason for Visit Reason Comments Refill Encounter Details Date Type Department Care Team Description 07/27/2011 Refill [facility] [address] Rosalinda Calhoun cca, MD Refill Endocrinology [address] [facility] [address] [place] [address] [place] [address] [phone] Social History Tobacco Use Types Packs/Day Years [...] Primary documented in this encounter Care Teams Flask Handler Relationship Specialty Start Date End Date Lilian Persaud DO PCP - General 12/23/10 05/16/12 14[address] [address] documented as of this encounter
--- OUTSIDE RECORDS SUMMARY | 2022-02-14 17:12 | XMS_ITS | Encounter Summary ---
:1970 Author Organization [employer] Address [address] [place] [address] Care Team Providers Name Role Phone CoriLilian li Primary Care Provider Reason for Visit Reason Comments Refill Encounter Details Date Type Department Care Team Description 09/13/2011 Refill [facility] Stevenson Greene MD Refill [address] [facility] [address] [place] [place] [address] [place], [place] [address] (Wo rk) Social History Tobacco Use Types [...] hyperlipidemia documented in this encounter Care Teams Top Lift And Automatic Window Repairer Relationship Specialty Start Date End Date Lilian Persaud DO PCP - General 12/23/10 05/16/12 [address] [address] documented as of this encounter
--- OUTSIDE RECORDS SUMMARY | 2022-02-14 17:12 | XMS_ITS | Encounter Summary ---
:1970 Author Organization [facility] Address [address] [place] [address] Care Team Providers Name Role Phone Lilian Persaud DO Primary Care Provider Reason for Visit Reason Comments Refill Encounter Details Date Type Department Care Team Description 07/30/2011 Refill [facility] Lilian Persaud DO Refill [address] [facility] [address] [facility] [place] [address] [place] [address] [phone] (Wo rk) Social History Tobacco Use Types [...] filedocumented in this encounter Care Teams Medical Staff Services Coordinator Relationship Specialty Start Date End Date Lilian Persaud DO PCP - General 12/23/10 05/16/12 1415 [facility] [place] [address] documented as of this encounter
--- OUTSIDE RECORDS SUMMARY | 2022-02-14 17:12 | XMS_ITS | Encounter Summary ---
:1970 Author Organization [employer] Address [address] [place] [address] Care Team Providers Name Role Phone Lilian Persaud DO Primary Care Provider Reason for Visit Reason Comments Diabetes Encounter Details Date Type Department Care Team Description 06/29/2011 [facility]phone [facility] Lilian Persaud DO Diabetes [address] [address] [place] [address] [place] [address] [phone] (Wo rk) Social History Tobacco Use Types Packs/Day Years Used Date Smoking Tobacco: Never Assessed Sex Assigned at Date Recorded Not on file documented as of this encounter Nursing Notes Freya Hess - 06/29/2011 1:26 PM CST Notified pt. of notes below. Pt. understood and acknowledged information. And confirmed that he willbe going to his Endocrine appt on 07/05 at 4:30pm TER SCORER CUT OFF OPERATOR Lilian Persaud DO - 06/29/2011 12:57 PM [...] may be a factor with sugar management. TER SCORER CUT OFF OPERATOR Sarah Leon - 06/29/2011 10:28 AM CST [...] you have any new instructions or not TER SCORER CUT OFF OPERATOR Jo Cruz - 06/29/2011 10:21 AM CST Non -Symptom Message from Front Line Primary Care Provider: Lilian Persaud DO Message: Pt requesting to speak with a nurse regarding his diabetes. TER SCORER CUT OFF OPERATOR documented in this encounter Plan of Treatment Not on filedocumented as of this encounter Visit Diagnoses Diagnosis Type II or unspecified type diabetes jasen litus without mention of complication, uncontrolled - Primary documented in this encounter Care Teams It Security Manager Relationship Specialty Start Date End Date Lilian Persaud DO PCP - General 12/23/10 05/16/12 1415 [address] [address] documented as of this encounter
--- OUTSIDE RECORDS SUMMARY | 2022-02-14 17:12 | XMS_ITS | Encounter Summary ---
:1970 Author Organization [employer] Address [address] [place] [address] Care Team Providers Name Role Phone Lilian Persaud DO Primary Care Provider Reason for Visit Reason Comments Questions Encounter Details Date Type Department Care Team Description 03/14/2012 Telephone [facility] Lilian Persaud, DO Questions [address] [facility] . [address] [place] [address] [place] [address] [phone] (Wo rk) Social History Tobacco Use Types [...] plan of care and follow up. Y DRIVER OPERATOR Brielle Meza RN - 03/14/2012 1:45 PM CST Patient calling to ask if his visit with his Printed Circuit Board Pcb Draftsman on 03/22/12 qualifies as a visit with Dr. Persaud, as he is due for a follow-up visit with her. His financial situation is very difficult at this time. He stated his sugars are coming down slowly since his labs were done 02/01/12. Told patient either myself or his Printed Circuit Board Pcb Draftsman would return a call to him regarding this issue. Patient comfortable with this plan. Y DRIVER OPERATOR Freya Mukherjee - 03/14/2012 11:58 AM CST pt states he received letter from Dr. Persaud. pt is wondering if Dr. Persaud would like to see him to follow up. Please call to discuss. Y DRIVER OPERATOR documented in this encounter Plan of Treatment Not on filedocumented as of this encounter Visit Diagnoses Not on filedocumented in this encounter Care Teams Professional Services Manager Relationship Specialty Start Date End Date Lilian Persaud DO PCP - General 12/23/10 05/16/12 [address] [address] documented as of this encounter
--- OUTSIDE RECORDS SUMMARY | 2022-02-14 17:12 | XMS_ITS | Encounter Summary ---
:1970 Author Organization [facility] Address [address] [place] [address] Care Team Providers Name Role Phone Rolando Lopez DO Primary Care Provider Reason for Visit Reason Comments Pharmacy Encounter Details Date Type Department Care Team Description 07/13/2011 [facility], Pharmacy [address] [facility] . [address] [place] [address] [place] [address] [phone] (Wo rk) Social History Tobacco Use Types [...] LOPEZ Ordering User: VICKY LEYVA Resent to [facility] as ordered. IT Joellen Holm - 07/13/2011 [...] Primary documented in this encounter Care Teams Cyber Defense Analyst Relationship Specialty Start Date End Date Rolando Lopez DO PCP - General 12/23/10 05/16/12 [address] [address] documented as of this encounter
--- OUTSIDE RECORDS SUMMARY | 2022-02-14 17:12 | XMS_ITS | Encounter Summary ---
:1970 Author Organization [facility] Address [address] [address] Care Team Providers Name Role Phone Lilian Persaud DO Primary Care Provider Encounter Details Date Type Department Care Team Description 06/11/2011 Notes/Orders [facility] Eliana Kumar, [address] . [place] [address] Social History Tobacco Use Types Packs/Day Years Used Date Smoking Tobacco: Never Assessed Sex Assigned at Date Recorded Not on file documented as of this encounter Plan of Treatment Not on filedocumented as of this encounter Visit Diagnoses Not on filedocumented in this encounter Care Teams Punch Hand Relationship Specialty Start Date End Date Lilian Persaud DO PCP - General 12/23/10 05/16/12 1415 [address] [address] documented as of this encounter
--- OUTSIDE RECORDS SUMMARY | 2022-02-14 17:12 | XMS_ITS | Encounter Summary ---
:1970 Author Organization [employer] Address [address] [place] [address] Care Team Providers Name Role Phone Lilian Persaud DO Primary Care Provider Reason for Visit Reason Comments RESULTS, TEST Encounter Details Date Type Department Care Team Description 11/17/2011 Telephone [facility] Lilian Persaud DO RESULTS, TEST [address] [facility] [address] [place] [address] [place] [address] [phone] (Wo rk) Social History Tobacco Use Types Packs/Day Years Used Date Smoking Tobacco: Never Assessed Sex Assigned at Date Recorded Not on file documented as of this encounter Nursing Notes Freya Hess - 11/19/2011 11:24 AM CDT Left vm for pt informing of note below. Routing note to pt's yard operator Brittany Main MD who ordered test. Lilian Persaud DO - 11/19/2011 9:36 AM CDT I believe yard operator ordered this test, as I did not order this test. Please let pt know that it appears to be normal but he should also speak to his yard operator about results. Shefali Silva - 11/18/2011 9:48 AM CDT Procedure done at [facility]. NUCLEAR MYOCARDIAL PERFUSION STUDY REPORT, 11/10/2011 INDICATION: Chest pain. 41-year-old man with known coronary artery disease. He has a history of a prior law-BD-zlxcdxqku myocardial infarction. He is status post PCI [...] test When and where was test done[facility] 11/10/11 Who ordered the test? Lilian Persaud, DO documented in this encounter Plan of Treatment Not on filedocumented as of this encounter Visit Diagnoses Not on filedocumented in this encounter Care Teams Business Lawyer Relationship Specialty Start Date End Date Lilian Persaud DO PCP - General 12/23/10 05/16/12 [address] [address] documented as of this encounter
--- OUTSIDE RECORDS SUMMARY | 2022-02-14 17:12 | XMS_ITS | Encounter Summary ---
:1970 Author Organization [employer] Address [address] [place] [address] Care Team Providers Name Role Phone Lilian Persaud DO Primary Care Provider Reason for Visit Reason Comments Other Encounter Details Date Type Department Care Team Description 09/02/2011 Telephone [facility] Lilian Persaud, DO Other [address] [address] [place] [address] [place] [address] [phone] (Wo rk) Social History Tobacco Use Types [...] on filedocumented in this encounter Care Teams Assembler Mechanical Ordnance Relationship Specialty Start Date End Date Lilian Persaud DO PCP - General 12/23/10 05/16/12 1415 [place] [place] [address] documented as of this encounter
--- OUTSIDE RECORDS SUMMARY | 2022-02-14 17:12 | XMS_ITS | Encounter Summary ---
:1970 Author Organization [email or web address] Address [address] [place] [address] Care Team Providers Name Role Phone Lilian Persaud DO Primary Care Provider Reason for Visit Reason Comments Diabetes WART Encounter Details Date Type Department Care Team Description 10/05/2011 Office Visit [facility] Lilian Persaud, DM w/o complication type II, uncontrolled (Primary Dx); Medicine DO Plantar wart; [address] [address] [facility] [address] Wart; [place] [address] [place], [place] Warts, genital; [phone] [id number] Skin lesion Social History Tobacco Use [...] DESTRUCT BENIGN SKIN LESIONS UP TO 14 [id number] Wart - DESTRUCT BENIGN SKIN LESIONS UP TO 14 [id number] Warts, genital - CA DESTR PENIS CHARLESN,ARTUR,SURG EXCIS Skin lesion Patient will followup with cardiology and do fasting blood work in 3 months. continue present dose of insulins therapies , patient says this is an affordable option for him. Discussed goal of therapy with fasting blood sugar 80-110. Check hemoglobin A1c in one month. Monitor Patient requested retreatment of warts today. Discussed alternatives. patient advised to use [id number] wart removal therapies between office visits. patient [...] tissue documented in this encounter Care Teams Stitch Bonding Machine Drawer In Relationship Specialty Start Date End Date Lilian Persaud DO PCP - General 12/23/10 05/16/12 1415 [place] [id number] documented as of this encounter
--- OUTSIDE RECORDS SUMMARY | 2022-02-14 17:13 | XMS_ITS | Encounter Summary ---
:1970 Author Organization [email or web address] Address [address] [place] [address] Care Team Providers Name Role Phone Lilian Persaud DO Primary Care Provider Encounter Details Date Type Department Care Team Description 01/22/2011 Lab Visit [facility] Pure hyperglyceridemia; [address] . DM w/o complication type II, uncontrolled [place] [id number] Social History Tobacco Use Types Packs/Day Years [...] Direct LDL(If Needed) (01/22/2011 11:58 AM CDT) [facility] gist Method Time Signature Cholesterol 276 [...] - 01/22/2011 3:11 PM CDT Performed at [facility], [address] [place] [address] Lilian Persaud DO LAB_1 Performing Organization Address City/State/[facility] Code Phon e Number HP CONVERSION [...] - 01/22/2011 3:11 PM CDT Performed at [facility], [address] [place] [address] Lilian Persaud DO LAB_1 Performing Organization Address City/[facility] Phon e Number HP CONVERSION (ABNORMAL) GLUCOSE (01/22/2011 11:58 AM CDT) athologist Signature Lab Glucose 249 (H) 60 - 100 HP CONVERSION mg/dL Specimen Anatomical Collection Method Collection Time Receive d Time (Source) Location / / Volume Laterality 01/22/2011 11:58 01/22/2011 2:46 AM CDT PM CDT Narrative HP CONVERSION - 01/22/2011 3:11 PM CDT Performed at [facility], [address] [place] [address] Lilian Persaud DO LAB_1 Performing Organization Address City/[facility] Code Phon e Number HP CONVERSION [...] - 01/22/2011 3:11 PM CDT Performed at [facility], [address] [place] [address] Lilian Luther Cori SAL LAB_1 Performing Organization Address [facility] Phon e Number HP CONVERSION AST (01/22/2011 11:58 AM CDT) [facility] gist Method Time Signature Aspartate 27 0 - 45 HP CONVERSION Aminotransferase U/L Specimen Anatomical Collection Method Collection Time Receive d Time (Source) Location / / Volume Laterality 01/22/2011 11:58 01/22/2011 2:46 AM CDT PM CDT Narrative HP CONVERSION - 01/22/2011 3:11 PM CDT Performed at [facility], [address] [place], [place] [id number] Lilian Luther Cori SAL LAB_1 Performing Organization Address [facility] Phon e Number HP CONVERSION ALT (SGPT) (01/22/2011 11:58 AM CDT) [facility] Method Time Signature Alanine 41 4 - 55 HP CONVERSION Aminotransferase U/L Specimen Anatomical Collection Method Collection Time Receive d Time (Source) Location / / Volume Laterality 01/22/2011 11:58 01/22/2011 2:46 AM CDT PM CDT Narrative HP CONVERSION - 01/22/2011 3:11 PM CDT Performed at [facility], [address] [place], [place] [address] Lilian Luther Cori SAL LAB_1 Performing Organization Address [facility] Phon e Number HP CONVERSION VENIPUNCTURE (SOBEIDA) (01/22/2011 11:52 AM CDT) athologist Signature Venipuncture Done HP CONVERSION Specimen (Source) Anatomical Collection Method Collection Time Re ceived Time Location / / Volume Laterality 01/22/2011 11:52 AM CDT Narrative HP CONVERSION - 01/22/2011 11:52 AM CDT Performed at [facility], [address] [place] [id number] Lilian Luther Cori SAL LAB_1 Performing Organization Address [facility] Phon e Number HP CONVERSION documented in this encounter Visit Diagnoses Diagnosis Pure hyperglyceridemia (HRC) Pure hyperglyceridemia Type II or unspecified type diabetes jasen litus without mention of complication, uncontrolled documented in this encounter Care Teams Mechanical Assembly Technician Relationship Specialty Start Date End Date Lilian Persaud DO PCP - General 12/23/10 05/16/12 [address] [place] [address] documented as of this encounter
--- OUTSIDE RECORDS SUMMARY | 2022-02-14 17:13 | XMS_ITS | Encounter Summary ---
:1970 Author Organization [employer] Address [address], [place] [address] Care Team Providers Name Role Phone Rolando Lopez Primary Care Provider Encounter Details Date Type Department Care Team Description 04/29/2011 - [facility] 2S-Tanesha Lennon MD [address] [facility] [address] [place] [address] Other disorders of lipoid metabolism; 05/01/2011 Encounter ICU Geena Diaz MD [address] [place] [address] DM w/o complication type II, uncontrolle d; [address] Hypertriglyce ridemia; [place] DM (diabetes mellitus) type II uncontrolled with renal manifestation; [place], [place] DM renal m anif type II, uncontrolled; [address] [address] athrscl-uns vessel; [phone] Laboratory exam ination, unspecified; AMI NOS, unspec ified; Pure hyperglyce ridemia Social History Tobacco Use Types Packs/Day Years Used Date Smoking Tobacco: Never Assessed Sex Assigned at Date Recorded Not on file documented as of this encounter Last Filed Vital Signs Vital Sign Reading Time Taken Comments Blood Pressure 117/87 05/01/2011 8:00 AM PHARMACEUTICAL DEVELOPMENT TECHNICIAN Pulse 82 05/01/2011 8:00 AM PHARMACEUTICAL DEVELOPMENT TECHNICIAN Temperature 36.6 ??C (97.9 ??F) 05/01/2011 8:00 AM PHARMACEUTICAL DEVELOPMENT TECHNICIAN Respiratory Rate 16 05/01/2011 8:00 AM PHARMACEUTICAL DEVELOPMENT TECHNICIAN Oxygen Saturation 98% 05/01/2011 8:00 AM PHARMACEUTICAL DEVELOPMENT TECHNICIAN Inhaled Oxygen Concentration - - Weight 100.3 kg (221 lb 3.2 oz) 04/29/2011 8:03 PM PHARMACEUTICAL DEVELOPMENT TECHNICIAN Height - - Body Mass Index 32.2 01/22/2011 11:08 AM CDT documented in this encounter Discharge Summaries Tanesha Greene MD - 05/01/2011 3:21 PM CST Discharge Summaries signed by Tanesha Greene MD at 05/01/111818 Author: Tanesha Greene MD Service: (none) Author Type: Physician Filed: 05/01/111818 Note Time: 05/01/111520 Status: Signed Secondary History Teacher: Tanesha Greene MD (Physician) NAME: SHARLENE KRISHNAMURTHY MR#: [id number] CSN: [id number] AUTHENTICATING CLINICIAN: Tanesha Greene MD CONFIRM #: [id number] LOC: 1 HOSPITAL DISCHARGE SUMMARY DATE OF [...] inferior Q-waves. The patient was hospitalized at [place] in November 2009. CT angiogram at that time demonstrated no flow-limiting disease in the right coronary. His exercise nuclear stress test was normal. 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 PAST MEDICAL HISTORY: As noted earlier, hypertension, [...] 4 mg daily. CLAIREK:MEDWendy C: CONFIRM #: [id number] MACEUTICAL DEVELOPMENT TECHNICIAN documented in this encounter Medications at Time [...] hours). 1 12 capsuleIndications: Indications: Hypertriglyceridemia HYPERTRIGLYCERIDEMIA ([facility]) divalproex (DEPAKOTE) Take 2,000 mg by mouth [...] to home today. He prefers follow-up in [place] and our schedulers will call him on Tuesday to arrange PA visit in 7- 10 days and [place] Production Supervisor visitin 4-6 weeks. Patient discussed with Dr. [...] Blood Glucose Test 299 (mg/dL) Assessment/Plan: Acute UT Ischemic CM EF 41% RCA stent Uncontrolled [...] Safe transfer to: /. Safe transfer from: [facility]. D: MD order to transfer to: [...] 04/30/2011 3:11 PM CST pt in laborer wrecking and salvaging MACEUTICAL DEVELOPMENT TECHNICIAN Abbie Mukherjee RN - 04/29/2011 11:02 PM CST O: Belongings will be secure D: Pt verbalized he is concerned about his wallet being safe while he is inpatient. A: Pt placed wallet in valuables envelope and security took it to the vault. R: Pt verbalizes relief that valuables are safe. Will picker machine operator upon discharge, pick-up slip placed inchart. Abbie Mukherjee RN 11:02 PM 04/29/2011 Jessenia Cowart - 04/29/2011 8:20 PM CST ADMIT O: Admitted patient via cart from [facility] to bed # 384/384 [...] are both issues. Favor bare metal stent. --[facility] Estevan Taylor MD - 04/30/2011 10:19 AM CST Consults signed by Estevan Taylor MD at 05/01/1135 Author: Estevan Taylor MD Service: (none) Author Type: Physician Filed: 05/01/1135 Note Time: 04/30/11 101 Status: Signed Secondary History Teacher: Estevan Taylor MD (Physician) NAME: SHARLENE KRISHNAMURTHY MR#: [id number] CSN: [id number] AUTHENTICATING CLINICIAN: Estevan Taylor MD CONFIRM #: [id number] LOC: 1 HOSPITAL CONSULTATION DATE OF CONSULTATION: [...] and on previously. He was hospitalized at [place] in November 2009 and at that point the CT angiogram showed non-flow- limiting disease in the right coronary, and he had a normal exercise nuclear scan. 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 He has been walking several [...] NEUROLOGIC: Cranial nerves normal. His electrocardiogram from [place] shows sinus rhythm, Q-waves in inferior leads, [...] would be favored. CC: ROLANDO LOPEZ, DO [address] [facility] [place] [address] [facility]:MEDQ C: CONFIRM #: [id number] MACEUTICAL DEVELOPMENT TECHNICIAN documented in this encounter OR Notes H&P - Geena Diaz MD - 04/29/2011 9:14 PM CST H&P signed by Geena Diaz MD at 04/29/112256 Author: Geena Diaz MD Service: (none) Author Type: Physician Filed: 04/29/112256 Note Time: 04/29/112113 Status: Signed Secondary History Teacher: Geena Diaz MD (Physician) NAME: SHARLENE KRISHNAMURTHY MR#: [id number] CSN: [id number] AUTHENTICATING CLINICIAN: Geena Diaz MD CONFIRM #: [id number] LOC: 1 HOSPITAL HISTORY AND PHYSICAL DATE [...] was started on heparin infusion at the [facility] and given metoprolol 12.5 mg orally. Cardiology at [facility] was contacted and they recommended he be [...] 1000 mg XR product at bedtime. 8. Taylor-3 fatty acid fish oil 2 grams daily. 9. Risperidone 4 mg daily. 10.Patient also running heparin infusion for anticoagulation on arrival. ADVERSE DRUG REACTIONS: Haldol, thiothixene, aripiprazole, trifluoperazine and ziprasidone. FAMILY HISTORY.: Dad had an UT at age 35 and is currently doing well at age 69. SOCIAL HISTORY: Patient does not use alcohol. He smokes about three-quarters pack of cigarettes daily. 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 He would like to return to [...] complete physical exam is unremarkable. DATA: From [facility] today: Sodium 130 which is stable for this patient, with potassium 4, creatinine 0.71. From April 28, 2011: Hemoglobin 14 with white count 8000 and INR 1.0. [facility] labs from today: Platelets 209, INR 1.1, creatinine 0.8, PTT 30. Chest x-ray from [facility] reviewed by their Radiologist as showing [...] DISCUSSION: Patient's blood sugars were monitored at [facility]. PLAN: Patient is n.p.o. now in [...] in the a.m. SME:MEDQ C: CONFIRM #: [id number] MACEUTICAL DEVELOPMENT TECHNICIAN documented in this encounter Miscellaneous Notes Medication [...] Date:04/30/11, End Date:-, Frequency:- *No Administrations Recorded MACEUTICAL DEVELOPMENT TECHNICIAN documented in this encounter Plan of Treatment Not on filedocumented as of this encounter Procedures Procedure Name Priority Date/Time Associated Comments Diagnosis BEDSIDE GLUCOSE Routine 05/01/2011 8:05 Results f or this MONITOR POCT AM PHARMACEUTICAL DEVELOPMENT TECHNICIAN procedure are i n the results section. PLATELETS Routine 05/01/2011 5:58 Results for this AM PHARMACEUTICAL DEVELOPMENT TECHNICIAN procedure are i n the results section. TROPONIN I Specified Time 05/01/2011 4:49 Results fo r this AM PHARMACEUTICAL DEVELOPMENT TECHNICIAN procedure are i n the results section. CK, TOTAL Specified Time 05/01/2011 4:49 Results fo r this AM PHARMACEUTICAL DEVELOPMENT TECHNICIAN procedure are i n the results section. APTT (ACTIVATED Specified Time 05/01/2011 4:48 Results for this PARTIAL AM PHARMACEUTICAL DEVELOPMENT TECHNICIAN procedure are i n THROMBOPLASTIN TIME the resu lts section. BEDSIDE GLUCOSE Routine 04/30/2011 9:33 Results f or this MONITOR POCT PM PHARMACEUTICAL DEVELOPMENT TECHNICIAN procedure are i n the results section. LABS CARD PROF TROPI STAT 04/30/2011 7:53 Resu lts for this 6 HRS PM PHARMACEUTICAL DEVELOPMENT TECHNICIAN procedure are i n the results section. CARD PROF TROPI 90 STAT 04/30/2011 5:30 Result s for this MIN PM PHARMACEUTICAL DEVELOPMENT TECHNICIAN procedure are i n the results section. ECG 12 LEAD INPATIENT STAT 04/30/2011 5:07 Res ults for this PM PHARMACEUTICAL DEVELOPMENT TECHNICIAN procedure are i n the results section. BEDSIDE GLUCOSE Routine 04/30/2011 4:35 Results f or this MONITOR POCT PM PHARMACEUTICAL DEVELOPMENT TECHNICIAN procedure are i n the results section. GLUCOSE Routine 04/30/2011 1:50 Results for this PM PHARMACEUTICAL DEVELOPMENT TECHNICIAN procedure are i n the results section. CARDIAC PROFILE Routine 04/30/2011 1:50 Results f or this PM PHARMACEUTICAL DEVELOPMENT TECHNICIAN procedure are i n the results section. CREATININE / GFR Routine 04/30/2011 1:50 Results for this PM PHARMACEUTICAL DEVELOPMENT TECHNICIAN procedure are i n the results section. COMPLETE BLOOD Routine 04/30/2011 1:50 Results fo r this COUNT-W/DIFF PM PHARMACEUTICAL DEVELOPMENT TECHNICIAN procedure are i n the results section. DIFFERENTIAL Routine 04/30/2011 1:50 Results for this PM PHARMACEUTICAL DEVELOPMENT TECHNICIAN procedure are i n the results section. ELECTROLYTE PANEL Routine 04/30/2011 1:50 Results for this PM PHARMACEUTICAL DEVELOPMENT TECHNICIAN procedure are i n the results section. MAGNESIUM Routine 04/30/2011 1:50 Results for this PM PHARMACEUTICAL DEVELOPMENT TECHNICIAN procedure are i n the results section. CK, TOTAL Routine 04/30/2011 1:50 Results for this PM PHARMACEUTICAL DEVELOPMENT TECHNICIAN procedure are i n the results section. BUN Routine 04/30/2011 1:50 Results for this PM PHARMACEUTICAL DEVELOPMENT TECHNICIAN procedure are i n the results section. INR/PROTIME Routine 04/30/2011 1:50 Results for this PM PHARMACEUTICAL DEVELOPMENT TECHNICIAN procedure are i n the results section. CARDIAC CATH Routine 04/30/2011 1:06 Results for this PROCEDURE PM PHARMACEUTICAL DEVELOPMENT TECHNICIAN procedure are i n the results section. BEDSIDE GLUCOSE Routine 04/30/2011 12:27 Results for this MONITOR POCT PM PHARMACEUTICAL DEVELOPMENT TECHNICIAN procedure are i n the results section. APTT (ACTIVATED Specified Time 04/30/2011 10:52 Result s for this PARTIAL AM PHARMACEUTICAL DEVELOPMENT TECHNICIAN procedure are i n THROMBOPLASTIN TIME the resu lts section. BEDSIDE GLUCOSE Routine 04/30/2011 8:49 Results f or this MONITOR POCT AM PHARMACEUTICAL DEVELOPMENT TECHNICIAN procedure are i n the results section. APTT (ACTIVATED Specified Time 04/30/2011 3:29 Results for this PARTIAL AM PHARMACEUTICAL DEVELOPMENT TECHNICIAN procedure are i n THROMBOPLASTIN TIME the resu lts section. SODIUM Specified Time 04/30/2011 3:29 Results fo r this AM PHARMACEUTICAL DEVELOPMENT TECHNICIAN procedure are i n the results section. BEDSIDE GLUCOSE Routine 04/29/2011 9:22 Results f or this MONITOR POCT PM PHARMACEUTICAL DEVELOPMENT TECHNICIAN procedure are i n the results section. APTT (ACTIVATED STAT 04/29/2011 8:14 Results f or this PARTIAL PM PHARMACEUTICAL DEVELOPMENT TECHNICIAN procedure are i n THROMBOPLASTIN TIME the resu lts section. PLATELETS STAT 04/29/2011 8:14 Results for this PM PHARMACEUTICAL DEVELOPMENT TECHNICIAN procedure are i n the results section. INR/PROTIME STAT 04/29/2011 8:14 Results for this PM PHARMACEUTICAL DEVELOPMENT TECHNICIAN procedure are i n the results section. CREATININE / GFR STAT 04/29/2011 8:13 Results for this PM PHARMACEUTICAL DEVELOPMENT TECHNICIAN procedure are i n the results section. MRSA CULTURE Routine 04/29/2011 8:05 Results for this PM PHARMACEUTICAL DEVELOPMENT TECHNICIAN procedure are i n the results section. ECG 12 LEAD INPATIENT STAT 04/29/2011 7:58 Res ults for this PM PHARMACEUTICAL DEVELOPMENT TECHNICIAN procedure are i n the results section. documented in this encounter Results BEDSIDE GLUCOSE MONITOR (05/01/2011 8:05 AM PHARMACEUTICAL DEVELOPMENT TECHNICIAN) athologist Signature Bedside Blood 299 mg/dL HP CONVERSION Glucose Test Specimen Anatomical Collection Method Collection Time Receive d Time (Source) Location / / Volume Laterality 05/01/2011 8:05 AM 2 8:25 PHARMACEUTICAL DEVELOPMENT TECHNICIAN AM PHARMACEUTICAL DEVELOPMENT TECHNICIAN Tanesha Greene MD LAB_1 Performing Organization Address City/State/ZIP Code Phon e Number HP CONVERSION Platelets (05/01/2011 5:58 AM PHARMACEUTICAL DEVELOPMENT TECHNICIAN) athologist Signature Platelet Count 171 140 - 450 HP CONVERSION k/cmm Specimen Anatomical Collection Method Collection Time Receive d Time (Source) Location / / Volume Laterality 05/01/2011 5:58 AM 2 6:00 PHARMACEUTICAL DEVELOPMENT TECHNICIAN AM PHARMACEUTICAL DEVELOPMENT TECHNICIAN Celso Cronin MD LAB_1 Performing Organization Address City/State/ZIP Code Phon e Number HP CONVERSION Troponin I (05/01/2011 4:49 AM PHARMACEUTICAL DEVELOPMENT TECHNICIAN) athologist Signature TROPONIN I <0.10 0.00 - 0.30 HP CONVERSION ng/mL Specimen Anatomical Collection Method Collection Time Receive d Time (Source) Location / / Volume Laterality BLOOD: 05/01/2011 4:49 AM 2 4:51 PHARMACEUTICAL DEVELOPMENT TECHNICIAN AM PHARMACEUTICAL DEVELOPMENT TECHNICIAN Demario Mcintyre MD LAB_1 Performing Organization Address City/State/ZIP Code Phon e Number HP CONVERSION CK, Total (05/01/2011 4:49 AM PHARMACEUTICAL DEVELOPMENT TECHNICIAN) athologist Signature Creatine Kinase 63 0 - 225 HP CONVERSION U/L Specimen Anatomical Collection Method Collection Time Receive d Time (Source) Location / / Volume Laterality BLOOD: 05/01/2011 4:49 AM 2 4:51 PHARMACEUTICAL DEVELOPMENT TECHNICIAN AM PHARMACEUTICAL DEVELOPMENT TECHNICIAN Demario Mcintyre MD LAB_1 Performing Organization Address City/State/ZIP Code Phon e Number HP CONVERSION APTT (Activated Partial Thromboplastin Time) (05/01/2011 4:48 AM PHARMACEUTICAL DEVELOPMENT TECHNICIAN) [facility] Method Time Signature Partial 27.3 25.0 - HP CONVERSION Thromboplastin Time 38.0 sec Specimen Anatomical Collection Method Collection Time Receive d Time (Source) Location / / Volume Laterality 05/01/2011 4:48 AM 2 4:51 PHARMACEUTICAL DEVELOPMENT TECHNICIAN AM PHARMACEUTICAL DEVELOPMENT TECHNICIAN Geena Diaz MD LAB_1 Performing Organization Address City/[facility]/ZIP Code Phon e Number HP CONVERSION BEDSIDE GLUCOSE MONITOR (04/30/2011 9:33 PM PHARMACEUTICAL DEVELOPMENT TECHNICIAN) athologist Signature Bedside Blood 353 mg/dL HP CONVERSION Glucose Test Specimen Anatomical Collection Method Collection Time Receive d Time (Source) Location / / Volume Laterality 04/30/2011 9:33 PM 2 9:40 PHARMACEUTICAL DEVELOPMENT TECHNICIAN PM PHARMACEUTICAL DEVELOPMENT TECHNICIAN Celso Cronin MD LAB_1 Performing Organization Address City/[facility]/ZIP Code Phon e Number HP CONVERSION LABS CARD PROF TROPI 6 HRS (04/30/2011 7:53 PM PHARMACEUTICAL DEVELOPMENT TECHNICIAN) athologist Signature Tropi At 6 Hrs <0.10 0.00 - HP CONVERSION 0.30 ng/mL Specimen Anatomical Collection Method Collection Time Receive d Time (Source) Location / / Volume Laterality 04/30/2011 7:53 PM 2 8:02 PHARMACEUTICAL DEVELOPMENT TECHNICIAN PM PHARMACEUTICAL DEVELOPMENT TECHNICIAN Narrative HP CONVERSION - 04/30/2011 8:33 PM PHARMACEUTICAL DEVELOPMENT TECHNICIAN .Critical _TROPI_ result of _0.48_calle d to and read back by_HANNAH FROM CAT.LAB_, 04/30/2011,16:25, by [email or web address] called to and read back by hayder ??rn 3e, 04/30/2011,14:55, by MONICA Celso Cronin MD LAB_1 Performing Organization Address City/[facility]/ZIP Code Phon e Number HP CONVERSION CARD PROF TROPI 90 MIN (04/30/2011 5:30 PM PHARMACEUTICAL DEVELOPMENT TECHNICIAN) athologist Signature Tropi at 90 Min <0.10 0.00 - HP CONVERSION 0.30 ng/mL Specimen Anatomical Collection Method Collection Time Receive d Time (Source) Location / / Volume Laterality 04/30/2011 5:30 PM 2 5:34 PHARMACEUTICAL DEVELOPMENT TECHNICIAN PM PHARMACEUTICAL DEVELOPMENT TECHNICIAN Narrative HP CONVERSION - 04/30/2011 6:05 PM PHARMACEUTICAL DEVELOPMENT TECHNICIAN .Critical _TROPI_ result of _0.48_calle d to and read back by_ERIC FROM CAT.LAB_, 04/30/2011,16:25, by [email or web address] called to and read back by hayder ??rn 3e, 04/30/2011,14:55, by MONICA Celso Cronin MD LAB_1 Performing Organization Address City/[facility]/ZIP Code Phon e Number HP CONVERSION ECG 12 Lead Inpatient (04/30/2011 5:07 PM PHARMACEUTICAL DEVELOPMENT TECHNICIAN) P athologist Signature Ventricular Rate 76 BPM MUSE GHP Atrial Rate 76 BPM MUSE GHP P-R Interval 140 ms MUSE GHP QRS Duration 98 ms MUSE GHP QT 402 ms MUSE GHP QTc 452 ms MUSE GHP P [place] 35 degrees MUSE GHP R [place] 32 degrees MUSE GHP T [place] -28 degrees MUSE GHP Specimen (Source) Anatomical Collection Method Collection Time Re ceived Time Location / / Volume Laterality 04/30/2011 5:07 PM PHARMACEUTICAL DEVELOPMENT TECHNICIAN Narrative MUSE GHP - 07/31/2019 4:22 PM [...] MD PN ECG ORDERABLES Performing Organization Address [facility] Phon e Number MUSE GHP [address] [place] [address] BEDSIDE GLUCOSE MONITOR (04/30/2011 4:35 PM PHARMACEUTICAL DEVELOPMENT TECHNICIAN) athologist Signature Bedside Blood 149 mg/dL HP CONVERSION Glucose Test Specimen Anatomical Collection Method Collection Time Receive d Time (Source) Location / / Volume Laterality 04/30/2011 4:35 PM 2 4:45 PHARMACEUTICAL DEVELOPMENT TECHNICIAN PM PHARMACEUTICAL DEVELOPMENT TECHNICIAN Celso Cronin MD LAB_1 Performing Organization Address City/[facility] Phon e Number HP CONVERSION INR/Protime (04/30/2011 1:50 PM PHARMACEUTICAL DEVELOPMENT TECHNICIAN) P athologist Signature Prothrombin Time 13.5 12.6 [...] valves in the aortic position , acute UT, valvular heart disease and atrial fibril lation. Mechanical prosthetic valves, (high risk ). ? INR 2.5-3.5 Prevention of recurrent myocardial infar ct. These recommended ranges serve as guidel mike. Adjustment outside these ranges may be c linically indicated. Specimen Anatomical Collection Method Collection Time Receive d Time (Source) Location / / Volume Laterality 04/30/2011 1:50 PM 2 1:59 PHARMACEUTICAL DEVELOPMENT TECHNICIAN PM PHARMACEUTICAL DEVELOPMENT TECHNICIAN Celso Cronin MD LAB_1 Performing Organization Address City/[facility] Phon e Number HP CONVERSION (ABNORMAL) Differential (04/30/2011 1:50 PM PHARMACEUTICAL DEVELOPMENT TECHNICIAN) Component Value Ref Test Analysis Performed At [...] Volume Laterality 04/30/2011 1:50 PM 2 1:59 PHARMACEUTICAL DEVELOPMENT TECHNICIAN PM PHARMACEUTICAL DEVELOPMENT TECHNICIAN Celso Cronin MD LAB_1 Performing Organization Address [facility] Phon e Number HP CONVERSION (ABNORMAL) CARDIAC PROFILE (04/30/2011 1:50 PM PHARMACEUTICAL DEVELOPMENT TECHNICIAN) [facility] Method Time Signature Tropi Baseline 0.48 (CH) 0.00 - HP CONVERSION 0.30 ng/mL Specimen Anatomical Collection Method Collection Time Receive d Time (Source) Location / / Volume Laterality 04/30/2011 1:50 PM 2 1:59 PHARMACEUTICAL DEVELOPMENT TECHNICIAN PM PHARMACEUTICAL DEVELOPMENT TECHNICIAN Narrative HP CONVERSION - 04/30/2011 4:09 PM PHARMACEUTICAL DEVELOPMENT TECHNICIAN .Critical _TROPI_ result of _0.48_calle d to and read back by_ERIC FROM CAT.LAB_, 04/30/2011,16:25, by [email or web address] called to and read back by hayder ??rn 3e, 04/30/2011,14:55, by MONICA Celso Cronin MD LAB_1 Performing Organization Address City/[facility]/ZIP Code Phon e Number HP CONVERSION (ABNORMAL) Hemogram/Plts/Diff (04/30/2011 1:50 PM PHARMACEUTICAL DEVELOPMENT TECHNICIAN) [facility] Method Time Signature White Blood Cell [...] Volume Laterality 04/30/2011 1:50 PM 2 1:59 PHARMACEUTICAL DEVELOPMENT TECHNICIAN PM PHARMACEUTICAL DEVELOPMENT TECHNICIAN Narrative HP CONVERSION - 04/30/2011 2:40 PM PHARMACEUTICAL DEVELOPMENT TECHNICIAN .plt 51 called to and read back by hayder ??rn 3e, 04/30/2011,14:55, by STEDA Celso Cronin MD LAB_1 Performing Organization Address [facility] Phon e Number HP CONVERSION Electrolyte Panel (04/30/2011 1:50 PM PHARMACEUTICAL DEVELOPMENT TECHNICIAN) athologist Signature Sodium 141 137 - 147 HP CONVERSION mEq/L Potassium 3.6 3.5 - 5.2 HP CONVERSION mEq/L Chloride 108 98 - 110 HP CONVERSION mEq/L Bicarbonate 26 23 - 33 HP CONVERSION mmol/L Specimen Anatomical Collection Method Collection Time Receive d Time (Source) Location / / Volume Laterality 04/30/2011 1:50 PM 2 1:59 PHARMACEUTICAL DEVELOPMENT TECHNICIAN PM PHARMACEUTICAL DEVELOPMENT TECHNICIAN Celso Cronin MD LAB_1 Performing Organization Address City/State/ZIP Code Phon e Number HP CONVERSION Magnesium (04/30/2011 1:50 PM PHARMACEUTICAL DEVELOPMENT TECHNICIAN) athologist Signature Magnesium 2.2 1.5 - 2.4 HP CONVERSION mg/dL Specimen Anatomical Collection Method Collection Time Receive d Time (Source) Location / / Volume Laterality 04/30/2011 1:50 PM 2 1:59 PHARMACEUTICAL DEVELOPMENT TECHNICIAN PM PHARMACEUTICAL DEVELOPMENT TECHNICIAN Celso Cronin MD LAB_1 Performing Organization Address City/[facility]/ZIP Code Phon e Number HP CONVERSION (ABNORMAL) GLUCOSE (04/30/2011 1:50 PM PHARMACEUTICAL DEVELOPMENT TECHNICIAN) athologist Signature Lab Glucose 211 (H) 60 - 100 HP CONVERSION mg/dL Specimen Anatomical Collection Method Collection Time Receive d Time (Source) Location / / Volume Laterality 04/30/2011 1:50 PM 2 1:59 PHARMACEUTICAL DEVELOPMENT TECHNICIAN PM PHARMACEUTICAL DEVELOPMENT TECHNICIAN Celso Cronin MD LAB_1 Performing Organization Address City/[facility] Code Phon e Number HP CONVERSION Creatinine / GFR (04/30/2011 1:50 PM PHARMACEUTICAL DEVELOPMENT TECHNICIAN) athologist Signature Creatinine 0.8 0.4 - 1.3 [...] Volume Laterality 04/30/2011 1:50 PM 2 1:59 PHARMACEUTICAL DEVELOPMENT TECHNICIAN PM PHARMACEUTICAL DEVELOPMENT TECHNICIAN Celso Cronin MD LAB_1 Performing Organization Address [facility] Phon e Number HP CONVERSION CK, Total (04/30/2011 1:50 PM PHARMACEUTICAL DEVELOPMENT TECHNICIAN) P athologist Signature Creatine Kinase 108 0 - 225 HP CONVERSION U/L Specimen Anatomical Collection Method Collection Time Receive d Time (Source) Location / / Volume Laterality 04/30/2011 1:50 PM 2 1:59 PHARMACEUTICAL DEVELOPMENT TECHNICIAN PM PHARMACEUTICAL DEVELOPMENT TECHNICIAN Celso Cronin MD LAB_1 Performing Organization Address [facility] Code Phon e Number HP CONVERSION BUN (04/30/2011 1:50 PM PHARMACEUTICAL DEVELOPMENT TECHNICIAN) P athologist Signature Blood Urea 17 5 - 26 HP CONVERSION Nitrogen mg/dL Specimen Anatomical Collection Method Collection Time Receive d Time (Source) Location / / Volume Laterality 04/30/2011 1:50 PM 2 1:59 PHARMACEUTICAL DEVELOPMENT TECHNICIAN PM PHARMACEUTICAL DEVELOPMENT TECHNICIAN Celso Cronin MD LAB_1 Performing Organization Address [facility] Phon e Number HP CONVERSION Cardiac Cath Procedure (04/30/2011 1:06 PM PHARMACEUTICAL DEVELOPMENT TECHNICIAN) Specimen (Source) Anatomical Collection Method Collection Time Re ceived Time Location / / Volume Laterality 04/30/2011 1:06 PM PHARMACEUTICAL DEVELOPMENT TECHNICIAN Narrative PN CENTRICITY - 04/30/2011 1:06 PM PHARMACEUTICAL DEVELOPMENT TECHNICIAN SHARLENE KRISHNAMURTHY ?? [id number] Cardiac Catheterization : 1970 Age: 41 years Gender: Male Study date: 04/30/2011 Test time: 15:27 - 15:59 Fluoro time: 6.6 min PPH Staff: ??Antoinette Olivera RN Diagnostic Hot Wound Spring Production Supervisor: ??DEMARIO MCINTYRE MD Senior Operations Manager: ??Brandon Ta Scrub: ??Katie Holder Monitor: ??Zoie Kumar RCVT X-ray Tech: ??Daniela Robles RT Ordering Physician: ??Franck TAYLOR Senior Operations Manager: ??Harmony Newton RNelectric motor repair supervisorDirector Of Software Development: ??FLORENCE MCINTYRE MD Referring Physician 1: ??ROLANDO [...] The patient was brought to the laborer wrecking and salvaging and placed on the table. The planned [...] lesion. Vessel setup was performed. A JR4 Avimotoin g catheter was used to intubate the vessel. Balloon angioplasty was performed, using a 2.5 x 15 NC [employer] [place] balloon, with 2 inflations and a maximum [...] 17:21:22 PPH Staff: Antoinette Olivera RN Diagnostic Hot Wound [place] Production Supervisor: DEMARIO MCINTYRE Senior Operations Manager: Brandon Ta Scrub: Katie Holder Monitor: Zoie KumarVT X-ray Tech: Daniela Robles Ordering Physician: Franck TAYLOR MD Senior Operations Manager: Harmony Newton RNelectric motor repair supervisorDirector Of Software Development: MARGO MCINTYRE MD Referring Physician 1: ROLANDO [...] PN CARDIAC CATH ORDERABLES Performing Organization Address [facility] Phon e Number PN CENTRICITY BEDSIDE GLUCOSE MONITOR (04/30/2011 12:27 PM PHARMACEUTICAL DEVELOPMENT TECHNICIAN) athologist Signature Bedside Blood 242 mg/dL HP CONVERSION Glucose Test Specimen Anatomical Collection Method Collection Time Receive d Time (Source) Location / / Volume Laterality 04/30/2011 12:27 04/30/2011 PM PHARMACEUTICAL DEVELOPMENT TECHNICIAN 12:45 PM PHARMACEUTICAL DEVELOPMENT TECHNICIAN Celso Cronin MD LAB_1 Performing Organization Address [facility] Phon e Number HP CONVERSION APTT (Activated Partial Thromboplastin Time) (04/30/2011 10:52 AM PHARMACEUTICAL DEVELOPMENT TECHNICIAN) [facility] Method Time Signature Partial 36.3 25.0 - HP CONVERSION Thromboplastin Time 38.0 sec Specimen Anatomical Collection Method Collection Time Receive d Time (Source) Location / / Volume Laterality 04/30/2011 10:52 04/30/2011 AM PHARMACEUTICAL DEVELOPMENT TECHNICIAN 11:07 AM PHARMACEUTICAL DEVELOPMENT TECHNICIAN Geena Diaz MD LAB_1 Performing Organization Address [facility] Phon e Number HP CONVERSION BEDSIDE GLUCOSE MONITOR (04/30/2011 8:49 AM PHARMACEUTICAL DEVELOPMENT TECHNICIAN) athologist Signature Bedside Blood 274 mg/dL HP CONVERSION Glucose Test Specimen Anatomical Collection Method Collection Time Receive d Time (Source) Location / / Volume Laterality 04/30/2011 8:49 AM 2 9:01 PHARMACEUTICAL DEVELOPMENT TECHNICIAN AM PHARMACEUTICAL DEVELOPMENT TECHNICIAN Celso Cronin MD LAB_1 Performing Organization Address [facility] Phon e Number HP CONVERSION (ABNORMAL) Sodium (04/30/2011 3:29 AM PHARMACEUTICAL DEVELOPMENT TECHNICIAN) athologist Signature Sodium 133 (L) 137 - 147 HP CONVERSION mEq/L Specimen Anatomical Collection Method Collection Time Receive d Time (Source) Location / / Volume Laterality 04/30/2011 3:29 AM 2 3:41 PHARMACEUTICAL DEVELOPMENT TECHNICIAN AM PHARMACEUTICAL DEVELOPMENT TECHNICIAN Geena Diaz MD LAB_1 Performing Organization Address [facility] Phon e Number HP CONVERSION APTT (Activated Partial Thromboplastin Time) (04/30/2011 3:29 AM PHARMACEUTICAL DEVELOPMENT TECHNICIAN) Patholo gist Method Time Signature Partial 32.8 25.0 - HP CONVERSION Thromboplastin Time 38.0 sec Specimen Anatomical Collection Method Collection Time Receive d Time (Source) Location / / Volume Laterality 04/30/2011 3:29 AM 2 3:41 PHARMACEUTICAL DEVELOPMENT TECHNICIAN AM PHARMACEUTICAL DEVELOPMENT TECHNICIAN Geena Diaz MD LAB_1 Performing Organization Address [facility] Phon e Number HP CONVERSION BEDSIDE GLUCOSE MONITOR (04/29/2011 9:22 PM PHARMACEUTICAL DEVELOPMENT TECHNICIAN) P athologist Signature Bedside Blood 294 mg/dL HP CONVERSION Glucose Test Specimen Anatomical Collection Method Collection Time Receive d Time (Source) Location / / Volume Laterality 04/29/2011 9:22 PM 2 9:00 PHARMACEUTICAL DEVELOPMENT TECHNICIAN AM PHARMACEUTICAL DEVELOPMENT TECHNICIAN Celso Cronin MD LAB_1 Performing Organization Address [facility] Phon e Number HP CONVERSION INR/Protime (04/29/2011 8:14 PM PHARMACEUTICAL DEVELOPMENT TECHNICIAN) P athologist Signature Prothrombin Time 13.8 12.6 [...] valves in the aortic position , acute UT, valvular heart disease and atrial fibril lation. Mechanical prosthetic valves, (high risk ). ? INR 2.5-3.5 Prevention of recurrent myocardial infar ct. These recommended ranges serve as guidel mike. Adjustment outside these ranges may be c linically indicated. Specimen Anatomical Collection Method Collection Time Receive d Time (Source) Location / / Volume Laterality 04/29/2011 8:14 PM 2 8:17 PHARMACEUTICAL DEVELOPMENT TECHNICIAN PM PHARMACEUTICAL DEVELOPMENT TECHNICIAN Fan Curry DO LAB_1 Performing Organization Address [facility] Phon e Number HP CONVERSION APTT (Activated Partial Thromboplastin Time) (04/29/2011 8:14 PM PHARMACEUTICAL DEVELOPMENT TECHNICIAN) [facility] gist Method Time Signature Partial 33.7 25.0 - HP CONVERSION Thromboplastin Time 38.0 sec Specimen Anatomical Collection Method Collection Time Receive d Time (Source) Location / / Volume Laterality 04/29/2011 8:14 PM 2 8:17 PHARMACEUTICAL DEVELOPMENT TECHNICIAN PM PHARMACEUTICAL DEVELOPMENT TECHNICIAN Fan Curry DO LAB_1 Performing Organization Address [facility] Phon e Number HP CONVERSION Platelets (04/29/2011 8:14 PM PHARMACEUTICAL DEVELOPMENT TECHNICIAN) athologist Signature Platelet Count 209 140 - 450 HP CONVERSION k/cmm Specimen Anatomical Collection Method Collection Time Receive d Time (Source) Location / / Volume Laterality 04/29/2011 8:14 PM 2 8:17 PHARMACEUTICAL DEVELOPMENT TECHNICIAN PM PHARMACEUTICAL DEVELOPMENT TECHNICIAN Fan Curry DO LAB_1 Performing Organization Address [facility] Phon e Number HP CONVERSION Creatinine / GFR (04/29/2011 8:13 PM PHARMACEUTICAL DEVELOPMENT TECHNICIAN) athologist Signature Creatinine 0.8 0.4 - 1.3 [...] Volume Laterality 04/29/2011 8:13 PM 2 8:17 PHARMACEUTICAL DEVELOPMENT TECHNICIAN PM PHARMACEUTICAL DEVELOPMENT TECHNICIAN Fan Curry DO LAB_1 Performing Organization Address [facility] Phon e Number HP CONVERSION MRSA Culture (04/29/2011 8:05 PM PHARMACEUTICAL DEVELOPMENT TECHNICIAN) Component Value Ref Test Analysis Performed At [...] / Volume Laterality Nares: 04/29/2011 8:05 PM PHARMACEUTICAL DEVELOPMENT TECHNICIAN Julia Covarrubias MD LAB_1 Performing Organization Address City/State/ZIP Code Phon e Number HP CONVERSION ECG 12 Lead Inpatient (04/29/2011 7:58 PM PHARMACEUTICAL DEVELOPMENT TECHNICIAN) P athologist Signature Ventricular Rate 84 BPM MUSE [facility] Atrial Rate 84 BPM MUSE [facility] P-R Interval 144 ms MUSE [facility] QRS Duration 96 ms MUSE [facility] QT 366 ms MUSE [facility] QTc 432 ms MUSE [facility] P [place] 44 degrees MUSE [facility] R [place] 41 degrees MUSE [facility] T [place] -33 degrees MUSE [facility] Specimen (Source) Anatomical Collection Method Collection Time Re ceived Time Location / / Volume Laterality 04/29/2011 7:58 PM PHARMACEUTICAL DEVELOPMENT TECHNICIAN Narrative MUSE [facility] - 07/31/2019 4:26 PM CDT Sinus rhythm Small inferior Q's Borderline ECG ?? No previous ECGs available Procedure Note Epic, Internal Processing - 08/05/2019Fo rmatting of this note might be different from the original. Sinus rhythm Small inferior Q's Borderline ECG No previous ECGs available Brisa Negrete MD PN ECG ORDERABLES Performing Organization Address City/State/ZIP Code Phon e Number MUSE [facility] [address] [place] [address] documented in this encounter Visit Diagnoses Diagnosis [...] type of vessel, citizen [place] or graft Laboratory examination, unspecified Acute myocardial infarction, unspecified site, episode of care unspecified Pure hyperglyceridemia (HRC) Pure hyperglyceridemia Plan of Care - Laura Valetnine RN - 05/01/2011 7:40 AM CST Problem: [...] feet. documented in this encounter Care Teams Master Dyer Relationship Specialty Start Date End Date Rolando Lopez DO PCP - General 12/23/10 05/16/12 [address] [place] [id number] documented as of this encounter
--- OUTSIDE RECORDS SUMMARY | 2022-02-14 17:13 | XMS_ITS | Encounter Summary ---
:1970 [address] [employer] Address [address] [place] [address] Care Team Providers Name Role Phone Lilian Persaud DO Primary Care Provider Reason for Visit Reason Comments Diabetes WART Encounter Details Date Type Department Care Team Description 05/26/2011 Office Visit [facility] Lilian Persaud, DM w/o complication type II, uncontrolled (Primary Dx); Medicine DO Other disorders of lipoid metabolism; [address] [address] Cor athrscl-uns vessel; [place] [address] [place], [place] Plantar wart; [phone] Tobacco use disorder Social History Tobacco Use Types Packs/Day Years Used Date Smoking Tobacco: Never Assessed Sex Assigned at Date Recorded Not on file documented as of this encounter Last Filed Vital Signs Vital Sign Reading Time Taken Comments Blood Pressure 124/89 05/26/2011 1:53 PM ENGINEERING INSPECTOR Pulse 88 05/26/2011 1:53 PM ENGINEERING INSPECTOR Temperature - - Respiratory Rate - - Oxygen Saturation - - Inhaled Oxygen Concentration - - Weight 98 kg (216 lb) 05/26/2011 1:53 PM ENGINEERING INSPECTOR Height - - Body Mass Index 31.44 01/22/2011 11:08 AM CDT documented in this encounter Patient Instructions Patient InstructionsLilian Persaud DO - 05/26/2011 2:41 PM CST use Lantus 30 units at night Tue, and then call clinic Tuesday morning with Fasting blood sugarreadings Decrease Metformin to 1000 mg daily Continue all other meds at usual dose NEERING INSPECTOR documented in this encounter Progress Notes Lilian [...] DESTRUCT BENIGN SKIN LESIONS UP TO 14 [id number] Tobacco use disorder - nicotine (NICODERM CQ) [...] patches prescribed and signed for him to picker as needed. Patient aware of cessation [...] of vessel, [place] or graft (HRC) Coronary atherosclerosis of unspecified type of vessel, [place] or graft Plantar wart Tobacco use disorder (HRC) Tobacco use disorder documented in this encounter Care Teams Fabric And Textile Factory Worker Relationship Specialty Start Date End Date Lilian Persaud DO PCP - General 12/23/10 05/16/12 [address] [place] [address] documented as of this encounter
--- OUTSIDE RECORDS SUMMARY | 2022-02-14 17:13 | XMS_ITS | Encounter Summary ---
:1970 Author Organization [employer] Address [address] [place] [address] Care Team Providers Name Role Phone Lilian Persaud DO Primary Care Provider Reason for Visit Reason Comments Diabetic Concern Encounter Details Date Type Department Care Team Description 03/25/2011 Telephone [facility] Lilian Persaud, Diabetic Concern [address] [address] [place] [address] [place] [address] [phone] (Wo rk) Social History Tobacco Use Types Packs/Day Years Used Date Smoking Tobacco: Never Assessed Sex Assigned at Date Recorded Not on file documented as of this encounter Nursing Notes Gagandeep Hinojosa MD - 03/25/2011 11:41 PM CST Done Nani Rojas LPN - 03/25/2011 11:08 AM CST Pt notified as advised. Expresses understanding. States is out of Metformin, so, requests refill to [facility] in [place]. Gagandeep Sosa MD - 03/25/2011 10:53 AM CST Call pt. Could restartr metformin 1000 mg daily to start, then BID. If vomiting resumes, discontinuemetformin and consider alternative med SHER ALUMINUM Marci Oliveira, RN - 03/25/2011 9:58 AM [...] or different plan? to clinician per distribution SHER ALUMINUM Jessica Tirado - 03/25/2011 9:52 AM CST Front Line Sx Call Primary Budget Examiner: Lilian Persaud DO Reason for call/symptom: pt would like to speak to nurse regarding high blood sugar SHER ALUMINUM documented in this encounter Plan of Treatment Not on filedocumented as of this encounter Visit Diagnoses Not on filedocumented in this encounter Care Teams Sanitary Engineering Teacher Relationship Specialty Start Date End Date Lilian Persaud DO PCP - General 12/23/10 05/16/12 [address] [place] [id number] documented as of this encounter
--- OUTSIDE RECORDS SUMMARY | 2022-02-14 17:13 | XMS_ITS | Encounter Summary ---
:1970 Author [facility] Address [address] [place] [address] Care Team Providers Name Role Phone Rolando Lopez DO Primary Care Provider Reason for Visit Reason Comments Refill Encounter Details Date Type Department Care Team Description 03/11/2011 Refill [facility] Rolando Lopez DO Refill [address] [address] [place] [address] [place] [address] [phone] (Wo rk) Social History Tobacco Use Types [...] on filedocumented in this encounter Care Teams Stoker Installation Mechanic Relationship Specialty Start Date End Date Rolando Lopez DO PCP - General 12/23/10 05/16/12 [address] [place] [address] documented as of this encounter
--- OUTSIDE RECORDS SUMMARY | 2022-02-14 17:13 | XMS_ITS | Encounter Summary ---
:1970 Author Organization [employer] Address [address] [place] [address] Care Team Providers Name Role Phone Lilian Persaud DO Primary Care Provider Encounter Details Date Type Department Care Team Description 04/06/2011 Lab Visit [facility] Other disorders of lipoid me tabolism; [address] DM w/o complication type II, uncontrolled [place] [address] Social History Tobacco Use Types Packs/Day Years Used Date Smoking Tobacco: Never Assessed Sex Assigned at Date Recorded Not on file documented as of this encounter Plan of Treatment Not on filedocumented as of this encounter Procedures Procedure Name Priority Date/Time Associated Diagnosis Comme nts GLUCOSE Routine 04/06/2011 1:53 PM Type II or Results f or this COMPUTER OPERATIONS MANAGER unspecified type procedure a re in diabetes mellitus the result s without mention of section. complication, uncontrolled (HRC) LIPID PANEL AND Routine 04/06/2011 1:53 PM Other disorders of Results for this DIRECT LDL(IF NEEDED) COMPUTER OPERATIONS MANAGER lipoid metabolism p rocedure are in (HRC) the results section. ELECTROLYTE PANEL Routine 04/06/2011 1:53 PM Type II or Resu lts for this COMPUTER OPERATIONS MANAGER unspecified type procedure a re in diabetes mellitus the result s without mention of section. complication, uncontrolled (HRC) HGB A1C Routine 04/06/2011 1:53 PM Type II or Results f or this COMPUTER OPERATIONS MANAGER unspecified type procedure a re in diabetes mellitus the result s without mention of section. complication, uncontrolled (HRC) ALT (SGPT) Routine 04/06/2011 1:53 PM Other disorders of Res ults for this COMPUTER OPERATIONS MANAGER lipoid metabolism procedure are in (HRC) the results section. AST Routine 04/06/2011 1:53 PM Other disorders of Res ults for this COMPUTER OPERATIONS MANAGER lipoid metabolism procedure are in (HRC) the results section. VENIPUNCTURE (SOBEIDA) Routine 04/06/2011 Results for this procedure are i n the results section. documented in this encounter Results (ABNORMAL) Hgb A1c (04/06/2011 1:53 PM COMPUTER OPERATIONS MANAGER) athologist [facility] HGB A1C 9.9 (H) 0.0 - 6.0 % HP CONVERSION Specimen Anatomical Collection Method Collection Time Receive d Time (Source) Location / / Volume Laterality 04/06/2011 1:53 PM 1 8:50 COMPUTER OPERATIONS MANAGER PM COMPUTER OPERATIONS MANAGER Lilian Persaud DO LAB_1 Performing Organization Address [facility] Phon e Number HP CONVERSION (ABNORMAL) GLUCOSE (04/06/2011 1:53 PM COMPUTER OPERATIONS MANAGER) athologist [facility] Lab Glucose 236 (H) 60 - 100 HP CONVERSION mg/dL Specimen Anatomical Collection Method Collection Time Receive d Time (Source) Location / / Volume Laterality 04/06/2011 1:53 PM 1 8:03 COMPUTER OPERATIONS MANAGER PM COMPUTER OPERATIONS MANAGER Narrative HP CONVERSION - 04/06/2011 8:23 PM COMPUTER OPERATIONS MANAGER [place] [address] Lilian Persaud DO LAB_1 Performing Organization Address [facility] Phon e Number HP CONVERSION (ABNORMAL) Electrolyte Panel (04/06/2011 1:53 PM COMPUTER OPERATIONS MANAGER) athologist [facility] Sodium 132 (L) 137 - 147 HP CONVERSION mEq/L Potassium 4.5 3.5 - 5.2 HP CONVERSION mEq/L Chloride 99 98 - 110 HP CONVERSION mEq/L Bicarbonate 25 23 - 33 HP CONVERSION mmol/L Specimen Anatomical Collection Method Collection Time Receive d Time (Source) Location / / Volume Laterality 04/06/2011 1:53 PM 1 8:03 COMPUTER OPERATIONS MANAGER PM COMPUTER OPERATIONS MANAGER Narrative HP CONVERSION - 04/06/2011 8:23 PM COMPUTER OPERATIONS MANAGER Performed at [facility], [address] [place] [address] Lilian Persaud DO LAB_1 Performing Organization Address [facility] Phon e Number HP CONVERSION (ABNORMAL) Lipid Panel and Direct LDL(If Needed) (04/06/2011 1:53 PM COMPUTER OPERATIONS MANAGER) [facility] Method Time Signature Cholesterol 280 (H) 0 [...] Volume Laterality 04/06/2011 1:53 PM 1 8:03 COMPUTER OPERATIONS MANAGER PM COMPUTER OPERATIONS MANAGER Narrative HP CONVERSION - 04/06/2011 8:23 PM COMPUTER OPERATIONS MANAGER Performed at [facility], [address] [place] [address] Lilian Persaud DO LAB_1 Performing Organization Address [facility] Phon e Number HP CONVERSION AST (04/06/2011 1:53 PM COMPUTER OPERATIONS MANAGER) [facility] Time Signature Aspartate 34 0 - 45 HP CONVERSION Aminotransferase U/L Specimen Anatomical Collection Method Collection Time Receive d Time (Source) Location / / Volume Laterality 04/06/2011 1:53 PM 1 8:03 COMPUTER OPERATIONS MANAGER PM COMPUTER OPERATIONS MANAGER Narrative HP CONVERSION - 04/06/2011 8:23 PM COMPUTER OPERATIONS MANAGER Performed at [facility], [address] [place] [address] Lilian Persaud DO LAB_1 Performing Organization Address [facility] Phon e Number HP CONVERSION ALT (SGPT) (04/06/2011 1:53 PM COMPUTER OPERATIONS MANAGER) [facility] Method Time Signature Alanine 45 4 - 55 HP CONVERSION Aminotransferase U/L Specimen Anatomical Collection Method Collection Time Receive d Time (Source) Location / / Volume Laterality 04/06/2011 1:53 PM 1 8:03 COMPUTER OPERATIONS MANAGER PM COMPUTER OPERATIONS MANAGER Narrative HP CONVERSION - 04/06/2011 8:23 PM COMPUTER OPERATIONS MANAGER Performed at [facility], [address] [place] [address] Lilian Persaud DO LAB_1 Performing Organization Address City/State/ZIP Code Phon e Number HP CONVERSION VENIPUNCTURE ([place]BE[place]) (04/06/2011) athologist Signature Venipuncture Done HP CONVERSION Specimen (Source) Anatomical Location Collection Method / Collectio n Time Received Time / Laterality Volume 04/06/2011 04/06/2011 Narrative HP CONVERSION - 04/06/2011 2:22 PM COMPUTER OPERATIONS MANAGER Performed at [facility], [address] [facility] [place] [address] Lilian Persaud DO LAB_1 Performing Organization Address City/State/ZIP Code Phon e Number HP CONVERSION documented in this encounter Visit Diagnoses Diagnosis 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
--- OUTSIDE RECORDS SUMMARY | 2022-02-14 17:13 | XMS_ITS | Encounter Summary ---
:1970 Author Organization [employer] Address [address] [place] [address] Care Team Providers Name Role Phone Lilian Persaud DO Primary Care Provider Encounter Details Date Type Department Care Team Description 06/04/2011 Lab Visit [place] [facility] Other disorders of lipoid [address] [place], [place] [address] Social History Tobacco Use Types Packs/Day Years Used Date Smoking Tobacco: Never Assessed Sex Assigned at Date Recorded Not on file documented as of this encounter Plan of Treatment Not on filedocumented as of this encounter Procedures Procedure Name Priority Date/Time Associated Diagnosis Comme nts LIPID PANEL AND Routine 06/04/2011 1:02 PM Other disorders of Results for this DIRECT LDL(IF PLASTIC PRINTER lipoid metabolism procedure are in NEEDED) ([facility]) the results section. LDL CHOLESTEROL, Routine 06/04/2011 1:02 PM Resul ts for this DIRECT MEASURED PLASTIC PRINTER procedure ar e in the results section. ALT (SGPT) Routine 06/04/2011 1:02 PM Other disorders of Res ults for this PLASTIC PRINTER lipoid metabolism procedure are in (HRC) the results section. AST Routine 06/04/2011 1:02 PM Other disorders of Res ults for this PLASTIC PRINTER lipoid metabolism procedure are in (HRC) the results section. CK, TOTAL Routine 06/04/2011 1:02 PM Other disorders of Res ults for this PLASTIC PRINTER lipoid metabolism procedure are in (HRC) the results section. documented in this encounter Results LDL Cholesterol, Direct Measured (06/04/2011 1:02 PM PLASTIC PRINTER) athologist Signature LDL Direct 115 0 - 130 HP CONVERSION mg/dL Specimen Anatomical Collection Method Collection Time Receive d Time (Source) Location / / Volume Laterality 06/04/2011 1:02 PM 2 8:20 PLASTIC PRINTER PM PLASTIC PRINTER Narrative HP CONVERSION - 06/04/2011 9:21 PM PLASTIC PRINTER Performed at [facility], [address] [place] [address] Lilian Persaud DO LAB_1 Performing Organization Address [facility] Phon e Number HP CONVERSION CK, Total (06/04/2011 1:02 PM PLASTIC PRINTER) athologist Signature Creatine Kinase 60 0 - 225 HP CONVERSION U/L Specimen Anatomical Collection Method Collection Time Receive d Time (Source) Location / / Volume Laterality 06/04/2011 1:02 PM 2 8:20 PLASTIC PRINTER PM PLASTIC PRINTER Narrative HP CONVERSION - 06/04/2011 9:07 PM PLASTIC PRINTER Performed at [facility], [address] [place] [address] Lilian Persaud DO LAB_1 Performing Organization Address [facility] Phon e Number HP CONVERSION AST (06/04/2011 1:02 PM PLASTIC PRINTER) [facility] gist Method Time Signature Aspartate 38 0 - 45 HP CONVERSION Aminotransferase U/L Specimen Anatomical Collection Method Collection Time Receive d Time (Source) Location / / Volume Laterality 06/04/2011 1:02 PM 2 8:20 PLASTIC PRINTER PM PLASTIC PRINTER Narrative HP CONVERSION - 06/04/2011 9:07 PM PLASTIC PRINTER Performed at [facility], [address] [place] [address] Lilian Persaud DO LAB_1 Performing Organization Address [facility] Phon e Number HP CONVERSION (ABNORMAL) ALT (SGPT) (06/04/2011 1:02 PM PLASTIC PRINTER) [facility] gist Method Time Signature Alanine 69 (H) 4 - 55 HP CONVERSION Aminotransferase U/L Specimen Anatomical Collection Method Collection Time Receive d Time (Source) Location / / Volume Laterality 06/04/2011 1:02 PM 2 8:20 PLASTIC PRINTER PM PLASTIC PRINTER Narrative HP CONVERSION - 06/04/2011 9:07 PM PLASTIC PRINTER Performed at [facility], [address] [place], [place] [id number] Lilian Persaud DO LAB_1 Performing Organization Address [facility] Phon e Number HP CONVERSION (ABNORMAL) Lipid Panel and Direct LDL(If Needed) (06/04/2011 1:02 PM PLASTIC PRINTER) [facility] Method Time Signature Cholesterol 204 (H) 0 - 200 HP CONVERSION mg/dL Triglycerides 593 (H) 0 - 149 HP CONVERSION mg/dL HDL Cholesterol 29 (L) >39 mg/dL HP CONVERSION Cholesterol/HDL 7.0 HP CONVERSION Ratio Screen Length Of Fast 12.0 HP CONVERSION Specimen Anatomical Collection Method Collection Time Receive d Time (Source) Location / / Volume Laterality 06/04/2011 1:02 PM 2 8:20 PLASTIC PRINTER PM PLASTIC PRINTER Narrative HP CONVERSION - 06/04/2011 9:07 PM PLASTIC PRINTER Performed at [facility], [address] [place] [address] Lilian Persaud DO LAB_1 Performing Organization Address [facility] Phon e Number HP CONVERSION documented in this encounter Visit Diagnoses Diagnosis 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
--- OUTSIDE RECORDS SUMMARY | 2022-02-14 17:13 | XMS_ITS | Encounter Summary ---
:1970 Author Organization [employer] Address [address] [place] [address] Care Team Providers Name Role Phone Lilian Persaud DO Primary Care Provider Reason for Visit Reason Comments Diabetic Concern Encounter Details Date Type Department Care Team Description 01/29/2011 Telephone [employer] [facility] Lilian Persaud DO Diabetic Concern [address] [facility] . [address] [facility] [place] [address] [place] [address] [phone] (Wo rk) Social History Tobacco Use Types [...] on filedocumented in this encounter Care Teams Instrument Person Relationship Specialty Start Date End Date Lilian Persaud DO PCP - General 12/23/10 05/16/12 1415 [place], [place] [address] documented as of this encounter
--- OUTSIDE RECORDS SUMMARY | 2022-02-14 17:13 | XMS_ITS | Encounter Summary ---
:1970 Author [facility] Address [address] [place] [address] Care Team Providers Name Role Phone Lilian Persaud DO Primary Care Provider Reason for Visit Reason Comments Prior Authorization Request Encounter Details Date Type Department Care Team Description 02/02/2011 Notes/Orders [facility] Lilian Persaud DO [address] [facility] . [address] [place] [address] [place] [address] [phone] (Wo rk) Social History Tobacco Use Types [...] filedocumented in this encounter Care Teams Medical Editor Relationship Specialty Start Date End Date Lilian Persaud DO PCP - General 12/23/10 05/16/12 1415 [place] [address] documented as of this encounter
--- OUTSIDE RECORDS SUMMARY | 2022-02-14 17:13 | XMS_ITS | Encounter Summary ---
:1970 Author Organization [employer] Address [address] [place] [address] Care Team Providers Name Role Phone Lilian Persaud DO Primary Care Provider Reason for Visit Reason Comments LAB RESULTS Encounter Details Date Type Department Care Team Description 04/07/2011 [facility]aud DO LAB RESULTS [address] [facility] [address] [place] [address] [place] [address] [phone] (Wo rk) Social History Tobacco Use Types [...] hyperglyceridemia documented in this encounter Care Teams Parking Lot Chauffeur Relationship Specialty Start Date End Date Lilian Persaud DO PCP - General 12/23/10 05/16/12 [address] [place], [place] [address] documented as of this encounter
--- OUTSIDE RECORDS SUMMARY | 2022-02-14 17:13 | XMS_ITS | Encounter Summary ---
:1970 Author Organization [employer] Address [address] [address] Care Team Providers Name Role Phone Cori Lilian Luther DO Primary Care Provider Encounter Details Date Type Department Care Team Description 04/29/2011 Hospital Encounter Heart & Vascular Brisa Negrete [facility] MD Simi Echocardiogram [address] [facility] [address] [place] [address] [phone] Social History Tobacco Use Types Packs/Day Years [...] respiration Re sults for this ECHOCARDIOGRAM PM SENIOR BRAND MANAGER procedure are in the results section. documented in this encounter Results Outreach Stress Echocardioram (04/29/2011 4:28 PM SENIOR BRAND MANAGER) Specimen (Source) Anatomical Location Collection Method / Collectio n Time Received Time / Laterality Volume Narrative HP CONVERSION - 04/29/2011 4:28 PM SENIOR BRAND MANAGER See results in APPS: [employer] Brisa Negrete MD PN ECHO ORDERABLES Performing Organization Address City/State/ZIP Code Phon e Number HP CONVERSION documented in this encounter Visit Diagnoses Diagnosis Painful respiration documented in this encounter Care Teams Magazine Keeper Relationship Specialty Start Date End Date Lilian Persaud DO PCP - General 12/23/10 05/16/12 [address] [place] [address] documented as of this encounter
--- OUTSIDE RECORDS SUMMARY | 2022-02-14 17:13 | XMS_ITS | Encounter Summary ---
:1970 Author Organization [facility] Address [address], [place] [address] Care Team Providers Name Role Phone Lilian Persaud DO Primary Care Provider Reason for Visit Reason Comments Refill Encounter Details Date Type Department Care Team Description 02/17/2011 Refill [facility] Lilian Persaud DO Refill [address] [facility] . [address] [address] [place] [address] [place] [address] [phone] (Wo rk) Social History Tobacco Use Types Packs/Day Years Used Date Smoking Tobacco: Never Assessed Sex Assigned at Date Recorded Not on file documented as of this encounter Plan of Treatment Not on filedocumented as of this encounter Visit Diagnoses Not on filedocumented in this encounter Care Teams Garnett Machine Operator Relationship Specialty Start Date End Date Lilian Persaud DO PCP - General 12/23/10 05/16/12 1415 [place] [address] documented as of this encounter
--- OUTSIDE RECORDS SUMMARY | 2022-02-14 17:13 | XMS_ITS | Encounter Summary ---
:1970 Author Organization [facility] Address [address] [place] [address] Care Team Providers Name Role Phone Lilian Persaud DO Primary Care Provider Reason for Visit Reason Comments Refill Encounter Details Date Type Department Care Team Description 03/25/2011 Refill [facility] Lilian Persaud, Refill [address] [address] [place] [address] [place] [address] [phone] (Wo rk) Social History Tobacco Use Types Packs/Day Years Used Date Smoking Tobacco: Never Assessed Sex Assigned at Date Recorded Not on file documented as of this encounter Nursing Notes Herlinda Lucio HUC - 03/26/2011 11:10 AM CST Patient informed ECT DESIGNER Gagandeep Hinojosa MD - 03/25/2011 5:43 PM CST Call pt. Dose limited to 1000 mg BID for 30 days to see if med can be tolerated ECT DESIGNER Judy Pittman RN - 03/25/2011 3:26 PM [...] filedocumented in this encounter Care Teams Youth Teacher Relationship Specialty Start Date End Date Lilian Persaud DO PCP - General 12/23/10 05/16/12 1415 [place] [address] documented as of this encounter
--- OUTSIDE RECORDS SUMMARY | 2022-02-14 17:13 | XMS_ITS | Encounter Summary ---
:1970 Author Organization [facility] Address [address] [place] [address] Care Team Providers Name Role Phone Lilian Persaud DO Primary Care Provider Reason for Visit Reason Comments ERRONEOUS ENTRY Encounter Details Date Type Department Care Team Description 03/08/2011 Telephone [facility] Lilian Persaud DO ERRONEOUS ENTRY [address] [facility] . [address] [place] [address] [place] [address] [phone] (Wo rk) Social History Tobacco Use Types Packs/Day Years Used Date Smoking Tobacco: Never Assessed Sex Assigned at Date Recorded Not on file documented as of this encounter Plan of Treatment Not on filedocumented as of this encounter Visit Diagnoses Not on filedocumented in this encounter Care Teams Veneer Taping Machine Offbearer Relationship Specialty Start Date End Date Lilian Persaud DO PCP - General 12/23/10 05/16/12 1415 [place] [address] documented as of this encounter
--- OUTSIDE RECORDS SUMMARY | 2022-02-14 17:13 | XMS_ITS | Encounter Summary ---
:1970 Author Organization [employer] Address [address] [place] [address] Care Team Providers Name Role Phone Lilian Persaud DO Primary Care Provider Reason for Visit Reason Comments UPDATE Encounter Details Date Type Department Care Team Description 06/04/2011 Telephone [facility] Lilian Persaud DO UPDATE [address] [address] [place] [address] [place] [address] [phone] (Wo rk) Social History Tobacco Use Types [...] on Tuesday morning with update. Pt agreed. LIFE REFUGE SPECIALIST Lilian Persaud DO - 06/04/2011 4:16 PM CST Have patient increase Lantus to 40 units (was 35 units) subcutaneous every HS. Also, increase Novolog to 10 units (was 9 units) TID with meals. Call Tuesday 2/13 am with BS readings. Further increase to be determined at that time. LIFE REFUGE SPECIALIST Judy Pittman, JOSETTE - 06/04/2011 4:03 PM [...] if insulin needs to be adjusted again. LIFE REFUGE SPECIALIST Gladys Granger - 06/04/2011 3:42 PM CST Non -Symptom Message from Front Line Primary Care Provider: Lilian Persaud DO Message: Pt is calling to leave his Blood Sugar levels from the last 3 days: Friday 06/02: AM-268 PM-315 Night- 06/03: AM -295 PM- 320 Night- 06/04: AM- 291 LIFE REFUGE SPECIALIST documented in this encounter Plan of Treatment Not on filedocumented as of this encounter Visit Diagnoses Diagnosis Type II or unspecified type diabetes jasen litus without mention of complication, uncontrolled - Primary documented in this encounter Care Teams Instructor Ground Services Relationship Specialty Start Date End Date Lilian Persaud DO PCP - General 12/23/10 05/16/12 [address] [place] [address] documented as of this encounter
--- OUTSIDE RECORDS SUMMARY | 2022-02-14 17:13 | XMS_ITS | Encounter Summary ---
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 [place], [place] Cor athrscl-uns vessel [facility] [address] [place] [address] [phone] Social History Tobacco Use Types Packs/Day Years Used Date Smoking Tobacco: Never Assessed Sex Assigned at Date Recorded Not on file documented as of this encounter Last Filed Vital Signs Vital Sign Reading Time Taken Comments Blood Pressure 146/84 05/14/2011 11:00 AM ACID WASHER OPERATOR Pulse 74 05/14/2011 11:00 AM ACID WASHER OPERATOR Temperature 36.7 ??C (98.1 ??F) 05/14/2011 11:00 AM ACID WASHER OPERATOR Respiratory Rate 18 05/14/2011 11:00 AM ACID WASHER OPERATOR Oxygen Saturation 96% 05/14/2011 11:00 AM ACID WASHER OPERATOR Inhaled Oxygen Concentration - - Weight 101.5 kg (223 lb 12.3 oz) 05/14/2011 11:00 AM ACID WASHER OPERATOR Height - - Body Mass Index 32.57 [...] discharges before Tuesday, will continue education at [facility]. Cordelia Ledesma RD, CDE Johnnie Ruggiero MD [...] management re CAD. Johnnie Ruggiero M.D. Pager: [phone] Rolando Villegas RN - 05/14/2011 11:43 AM CST Preparing patient for coronary angiogram scheduled later today. Reports he had his daily ASA and Plavix already this morning. Declines to watch video, had an angio two weeks ago and remembers procedurewell. Verbalizes that he hopes to discharge home after angio today. Requesting nicotine patch, reports he quit smoking two weeks ago after [place] and has been having good results with [...] Primary Care Provider: Rolando Lopez DO Primary Brick Loader: Scar Isaacs MD History of Present Illness: [...] time and resolved with morhpine in the [facility]. He was admitted there, and transferred [...] 250.02 ??? Erectile dysfunction 607.84D ??? Acute [place] 410.90BQ ??? 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 History Social [...] time. Thank You, Fabian Gutierrez MD Cardiology [facility] [place]. WASHER OPERATOR documented in this encounter Miscellaneous Notes Medication History - Rakel, MD Evlis - 05/14/2011 6:00 PM CST INPATIENT MEDS [...] Date:05/14/11, End Date:-, Frequency:- *No Administrations Recorded WASHER OPERATOR documented in this encounter Plan of Treatment Not on filedocumented as of this encounter Procedures Procedure Name Priority Date/Time Associated Diagnosis Comme nts BEDSIDE GLUCOSE Routine 05/14/2011 1:04 PM Result s for this MONITOR POCT ACID WASHER OPERATOR procedure are i n the results section. CARDIAC CATH Routine 05/14/2011 12:53 PM Results for this PROCEDURE ACID WASHER OPERATOR procedure are i n the results section. ECG 12 LEAD Routine 05/14/2011 12:48 PM Results for this INPATIENT ACID WASHER OPERATOR procedure are i n the results section. XR CHEST 2 VIEWS STAT 05/14/2011 12:36 PM Resu lts for this ACID WASHER OPERATOR procedure are i n the results section. CARD PROF ANDRES 90 STAT 05/14/2011 12:28 PM Re sults for this MIN ACID WASHER OPERATOR procedure are i n the results section. CARDIAC MARKER STAT 05/14/2011 11:38 AM Result s for this PROFILE ACID WASHER OPERATOR procedure are i n the results section. CK, TOTAL STAT 05/14/2011 11:38 AM Results for this ACID WASHER OPERATOR procedure are i n the results section. documented in this encounter Results BEDSIDE GLUCOSE MONITOR (05/14/2011 1:04 PM ACID WASHER OPERATOR) P athologist Signature Bedside Blood 290 mg/dL HP CONVERSION Glucose Test Specimen Anatomical Collection Method Collection Time Receive d Time (Source) Location / / Volume Laterality 05/14/2011 1:04 PM 2 1:25 ACID WASHER OPERATOR PM ACID WASHER OPERATOR Steve More MD LAB_1 Performing Organization Address City/State/ZIP Code Phon e Number HP CONVERSION Cardiac Cath Procedure (05/14/2011 12:53 PM ACID WASHER OPERATOR) Specimen (Source) Anatomical Collection Method Collection Time Re ceived Time Location / / Volume Laterality 05/14/2011 12:53 PM ACID WASHER OPERATOR Narrative PN CENTRICITY - 05/14/2011 12:53 PM ACID WASHER OPERATOR SHARLENE KRISHNAMURTHY ?? [id number] Cardiac Catheterization : 1970 Age: 41 years Gender: Male Study date: 05/14/2011 Test time: 14:22 - 14:40 Fluoro time: 1.9 min PPH Staff: ??Antoinette Olivera RN Diagnostic Brick Loader: ??ARTIE RUGGIERO MD Belt Puncher: ??Ceci Bowles Scrub: ??Julia Che RN Monitor: [...] obtained. The patient was brought to the microbiological lab technician and placed on the table. The planned [...] 17:06:24 PPH Staff: Antoinette Olivera RN Diagnostic Brick Loader: JOHNNIE RUGGIERO MD Belt Puncher: Ceci Bowles Scrub: Julia Che RN Monitor: [...] ECG 12 Lead Inpatient (05/14/2011 12:48 PM ACID WASHER OPERATOR) P athologist Signature Ventricular Rate 71 BPM MUSE GHP Atrial Rate 71 BPM MUSE GHP P-R Interval 142 ms MUSE GHP QRS Duration 94 ms MUSE GHP QT 388 ms MUSE GHP QTc 421 ms MUSE GHP P [place] 28 degrees MUSE GHP R [place] 12 degrees MUSE GHP T [place] -2 degrees MUSE GHP Specimen (Source) Anatomical Collection Method Collection Time Re ceived Time Location / / Volume Laterality 05/14/2011 12:48 PM ACID WASHER OPERATOR Narrative MUSE GHP - 07/31/2019 3:12 PM [...] e Number MUSE GHP [address] [place] [address] XR Chest 2 Views (05/14/2011 12:36 PM ACID WASHER OPERATOR) Anatomical Region Laterality Modality Chest, Lung Other Specimen (Source) Anatomical Location Collection Method / Collectio n Time Received Time / Laterality Volume Impressions 05/14/2011 12:42 PM ACID WASHER OPERATOR IMPRESSION: ??Negative PA and left later al chest. Narrative 05/14/2011 12:42 PM ACID WASHER OPERATOR HISTORY: ??chest pain COMPARISON: ??None. FINDINGS: ??Two [...] PROF TROPI 90 MIN (05/14/2011 12:28 PM ACID WASHER OPERATOR) athologist Signature Tropi at 90 Min <0.05 0.00 - HP CONVERSION 0.04 ng/mL Specimen Anatomical Collection Method Collection Time Receive d Time (Source) Location / / Volume Laterality 05/14/2011 12:28 05/14/2011 PM ACID WASHER OPERATOR 12:39 PM ACID WASHER OPERATOR Steve More MD LAB_1 Performing Organization Address [facility] Phon e Number HP CONVERSION CK, Total (05/14/2011 11:38 AM ACID WASHER OPERATOR) athologist Signature Creatine Kinase 85 0 - 225 HP CONVERSION U/L Specimen Anatomical Collection Method Collection Time Receive d Time (Source) Location / / Volume Laterality 05/14/2011 11:38 05/14/2011 AM ACID WASHER OPERATOR 11:42 AM ACID WASHER OPERATOR Steve More MD LAB_1 Performing Organization Address [facility] Phon e Number HP CONVERSION CARDIAC MARKER PROFILE (05/14/2011 11:38 AM ACID WASHER OPERATOR) athologist Signature TROPONIN I <0.05 0.00 - 0.04 HP CONVERSION ng/mL Specimen Anatomical Collection Method Collection Time Receive d Time (Source) Location / / Volume Laterality 05/14/2011 11:38 05/14/2011 AM ACID WASHER OPERATOR 11:42 AM ACID WASHER OPERATOR Steve More MD LAB_1 Performing Organization Address [facility] Phon e Number HP [...] unspecified type of vessel, [place] or graft documented in this encounter Care Teams Seating Captain Relationship Specialty Start Date End Date Rolando Lopez DO PCP - General 12/23/10 05/16/12 [address] [place] [address] documented as of this encounter
--- OUTSIDE RECORDS SUMMARY | 2022-02-14 17:13 | XMS_ITS | Encounter Summary ---
:1970 Author Organization [employer] Address [address] [place] [address] Care Team Providers Name Role Phone Lilian Persaud DO Primary Care Provider Reason for Visit Reason Comments UPDATE Encounter Details Date Type Department Care Team Description 05/28/2011 Telephone [employer] [facility] Lilian Persaud DO UPDATE [address] [address] [place] [address] [place] [address] [phone] (Wo rk) Social History Tobacco Use Types Packs/Day Years Used Date Smoking Tobacco: Never Assessed Sex Assigned at Date Recorded Not on file documented as of this encounter Nursing Notes Jacqueline Herrera LPN - 05/28/2011 3:39 PM CST LM with info INUOUS IMPROVEMENT COACH Lilian Persaud DO - 05/28/2011 12:13 PM [...] 05/27 289 2 hr PP: 05/27 396 INUOUS IMPROVEMENT COACH Lizette Blas - 05/28/2011 11:32 AM CST Non -Symptom Message from Front Line Primary Care Provider: Lilian Persaud DO Message: Patient calling to give blood sugar results as requested. [phone] INUOUS IMPROVEMENT COACH documented in this encounter Plan of Treatment Not on filedocumented as of this encounter Visit Diagnoses Diagnosis Type II or unspecified type diabetes jasen litus without mention of complication, uncontrolled - Primary documented in this encounter Care Teams Test Lead Relationship Specialty Start Date End Date Lilian Persaud DO PCP - General 12/23/10 05/16/12 [address]15 [place] [address] documented as of this encounter
--- OUTSIDE RECORDS SUMMARY | 2022-02-14 17:13 | XMS_ITS | Encounter Summary ---
:1970 Author Organization [employer] Address [address] [place] [address] Care Team Providers Name Role Phone Lilian Persaud DO Primary Care Provider Reason for Visit Reason Comments Diabetes Encounter Details Date Type Department Care Team Description 06/01/2011 Telephone [facility] Lilian Persaud DO Diabetes [address] [address] [place] [address] [place] [address] [phone] (Wo rk) Social History Tobacco Use Types Packs/Day Years Used Date Smoking Tobacco: Never Assessed Sex Assigned at Date Recorded Not on file documented as of this encounter Nursing Notes Jacqueline Herrera LPN - 06/01/2011 4:11 PM CST Pt informed. Having no symptoms of hypoglycemia TARY NURSE Lilian Persaud DO - 06/01/2011 3:06 PM CST Have him increase Lantus to 35 units for 3 days, call Tuesday morning with Fasting Blood sugar readings TARY NURSE Tatyana Christian RN - 06/01/2011 2:52 PM CST Spoke with pt. Pt is calling in his fasting am blood glucose readings to report to Dr. Persaud for possible Lantus adjustment. 24: 274 25: 284 26: 287 2: 284 No other sx to report. please call with plan. Call back number listed. To Dr. Persaud TARY NURSE Ale Fountain - 06/01/2011 2:39 PM CST Calling in with his readings. TARY NURSE documented in this encounter Plan of Treatment Not on filedocumented as of this encounter Visit Diagnoses Diagnosis Type II or unspecified type diabetes jasen litus without mention of complication, uncontrolled - Primary documented in this encounter Care Teams Stamp Analyst Relationship Specialty Start Date End Date Lilian Persaud DO PCP - General 12/23/10 05/16/12 1415 [place] [id number] documented as of this encounter
--- OUTSIDE RECORDS SUMMARY | 2022-02-14 17:13 | XMS_ITS | Encounter Summary ---
:1970 Author Organization [employer] Address [address] [place] [address] Care Team Providers Name Role Phone Lilian Persaud DO Primary Care Provider Reason for Visit Reason Comments Refill Encounter Details Date Type Department Care Team Description 03/16/2011 Refill [facility] Lilian Persaud DO Refill [address] [address] [place] [address] [place] [address] [phone] (Wo rk) Social History Tobacco Use Types Packs/Day Years Used Date Smoking Tobacco: Never Assessed Sex Assigned at Date Recorded Not on file documented as of this encounter Nursing Notes Lilian Persaud DO - 03/17/2011 8:11 AM CST pt has an appt this afternoon at 2 pm. I will address refills at ov. BAKER Maximilian Ag - 03/17/2011 7:40 AM CST last OV for diabetes 01/22/11 with recheck directed in 6 weeks but no protocol labs listed To primary documented in this encounter Plan of Treatment Not on filedocumented as of this encounter Visit Diagnoses Not on filedocumented in this encounter Care Teams Dismantler Relationship Specialty Start Date End Date Lilian Persaud DO PCP - General 12/23/10 05/16/12 [address] [place], [place] [address] documented as of this encounter
--- OUTSIDE RECORDS SUMMARY | 2022-02-14 17:13 | XMS_ITS | Encounter Summary ---
:1970 Author Organization [employer] Address [address] [place] [address] Care Team Providers Name Role Phone CoriLilian li Homa SAL Primary Care Provider Reason for Visit Reason Comments Coronary Artery Disease (CAD) Encounter Details Date Type Department Care Team Description 06/07/2011 Office Visit [facility] Vanessa Ram PA-C Cor athrscl-uns vessel; [address] Acute [place]; Ave. [place], [place] Other disorders of lipoid me tabolism; [place] [address] DM w/o complication type II, uncontrolle d [phone] (Wo rk) Social History Tobacco Use Types Packs/Day Years Used Date Smoking Tobacco: Never Assessed Sex Assigned at Date Recorded Not on file documented as of this encounter Last Filed Vital Signs Vital Sign Reading Time Taken Comments Blood Pressure 112/76 06/07/2011 10:38 AM FLIGHT TEACHER Pulse 84 06/07/2011 10:38 AM FLIGHT TEACHER Temperature - - Respiratory Rate - - Oxygen Saturation - - Inhaled Oxygen Concentration - - Weight 97.3 kg (214 lb 6.4 oz) 06/07/2011 10:38 AM FLIGHT TEACHER Height 176.5 cm (5' 9.5) 06/07/2011 10:38 AM FLIGHT TEACHER Body Mass Index 31.21 06/07/2011 10:38 AM FLIGHT TEACHER documented in this encounter Patient Instructions Patient InstructionsVanessa Ram PA-C - 06/07/2011 11:23 AM CST 1. Increase Lipitor to 80 mg daily (2 current 40 mg tablets, or 1 new 80 mg tablet). 2. Recheck ast, ck, cholesterol labs. Please contact the lab at [phone] to schedule a lab appointment at [facility] after a 12 hour fast, end of June. They will have the lab orders when you get there, so you are not responsible to bring a lab slip. HT TEACHER documented in this encounter Progress Notes Vanessa Ram PA-C - 06/07/2011 11:51 AM CST Cardiology Clinic Follow up Visit CLINIC PROGRESS NOTE VISIT DATE: 06/07/2011 Patient: Timur Krishnamurthy SUBJECTIVE: This is a pleasant patient present today for a post-hospitalization/post-angiogram visit. The patient was admitted to [facility] on April 29 with chest pain. He [...] (176.5 cm) Wt 214 lb 6.4 oz (32311 g) BMI 31.21 kg/m2 GENERAL: The patient [...] his cravings decrease. 5. Follow-up with a nurse specialist in 6 to 8 weeks to review [...] of modifying cardiac risk factors. 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
--- OUTSIDE RECORDS SUMMARY | 2022-02-14 17:13 | XMS_ITS | Encounter Summary ---
:1970 Author Organization [employer] Address [address] [place] [address] Care Team Providers Name Role Phone Lilian Persaud DO Primary Care Provider Reason for Visit Reason Comments Appt. Work In Request Encounter Details Date Type Department Care Team Description 05/20/2011 Telephone [facility] Lilian Persaud, Appt. W ork In Request Medicine DO [address] [facility] . [address] [place] [address] [place] [address] [phone] (Wo rk) Social History Tobacco Use Types [...] forward message forwarded to [facility] nursing venkat. LOGGING MUD ANALYSIS CAPTAIN Lilian Persaud DO - 05/21/2011 8:51 AM CST Unable to do apwi today, please schedule for next week. Pt has seen [facility], please forward note and have pt discuss changing insulin with them in meantime. LOGGING MUD ANALYSIS CAPTAIN Maximilian Ag - 05/20/2011 8:17 AM CST Patient calling requesting work-in to discuss diabetic medications Asymptomatic but blood sugars have been running 250-300 while on Novolog Also taking Metformin XR Afebrile No vomiting ,dizziness,blurred vision Declined appt offered today Aware clincian will address 05/21 Call [phone] LOGGING MUD ANALYSIS CAPTAIN Wendy Montgomery - 05/20/2011 7:24 AM CST Front Line Sx Call Primary Secret Code Expert: Lilian Persaud DO Reason for call/symptom: Pt is requesting to be worked in amar[place]. Tuesday05/21/11 with Noni Persaud re: Bloodsugar concerns and cholesterol med ck . Would like to discuss adjusting his diab meds . Pt just requested also to make a future appt . Pls call pt back LOGGING MUD ANALYSIS CAPTAIN documented in this encounter Plan of Treatment Not on filedocumented as of this encounter Visit Diagnoses Not on filedocumented in this encounter Care Teams Finishing Tunnel Operator Relationship Specialty Start Date End Date Lilian Persaud DO PCP - General 12/23/10 05/16/12 1415 [place] [address] documented as of this encounter
--- OUTSIDE RECORDS SUMMARY | 2022-02-14 17:13 | XMS_ITS | Encounter Summary ---
:1970 Author Organization [employer] Address [address] [place] [address] Care Team Providers Name Role Phone Lilian Persaud DO Primary Care Provider Reason for Visit Reason Comments Prior Authorization Request Encounter Details Date Type Department Care Team Description 01/26/2011 Telephone [facility] Lilian Persaud, A uthorization Medicine DO Request [address] [address] [place] [address] [place], [place] [phone] Social History Tobacco Use Types Packs/Day Years [...] change meds [facility] phone [phone] Pharmacy Fax# or Address: fax [phone] Clinician Name: Cori Drug Name/Strength: Januvia 25mg tablets #30 Sig: take 1-2 tablets po daily Formulary Alternative: none given Insurance Carrier: *ECODE documented in this encounter Plan of Treatment Not on filedocumented as of this encounter Visit Diagnoses Not on filedocumented in this encounter Care Teams Engineering Technical Analyst Relationship Specialty Start Date End Date Lilian Persaud DO PCP - General 12/23/10 05/16/12 1415 [place] [address] documented as of this encounter
--- OUTSIDE RECORDS SUMMARY | 2022-02-14 17:13 | XMS_ITS | Encounter Summary ---
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 Vomiting alone; [place] [address] [place], [place] Plantar wart [phone] Social History Tobacco Use Types Packs/Day Years Used Date Smoking Tobacco: Never Assessed Sex Assigned at Date Recorded Not on file documented as of this encounter Last Filed Vital Signs Vital Sign Reading Time Taken Comments Blood Pressure 112/64 03/17/2011 1:54 PM EDUCATIONAL INTERPRETER Pulse 70 03/17/2011 1:54 PM EDUCATIONAL INTERPRETER Temperature - - Respiratory Rate - - Oxygen Saturation - - Inhaled Oxygen Concentration - - Weight 101.6 kg (224 lb) 03/17/2011 1:54 PM EDUCATIONAL INTERPRETER Height - - Body Mass Index 32.6 01/22/2011 11:08 AM CDT documented in this encounter Patient Instructions Patient InstructionsLilian Persaud DO - 03/17/2011 3:08 PM CST Come in fasting for cholesterol and other blood work in the next 1-2 weeks. Follow up 2 weeks for plantar wart treatment Follow up 1 month for diabetes check ATIONAL INTERPRETER documented in this encounter Progress Notes Lilian [...] DESTRUCT BENIGN SKIN LESIONS UP TO 14 [id number] 1. Vomiting may be a side effect [...] alternatives discussed for plantar wart treatment, including hlsg-[id number] therapies, cantharidin, injections, cryotherapy and salicylic acid. [...] wart documented in this encounter Care Teams Watch Train Inspector Relationship Specialty Start Date End Date Lilian Persaud DO PCP - General 12/23/10 05/16/12 [address] [place], [place] [address] documented as of this encounter
--- OUTSIDE RECORDS SUMMARY | 2022-02-14 17:13 | XMS_ITS | Encounter Summary ---
:1970 Author Organization [employer] Address [address] [place] [address] Care Team Providers Name Role Phone Lilian Persaud Primary Care Provider Reason for Visit Reason Comments Missed Appointment Encounter Details Date Type Department Care Team Description 05/19/2011 Telephone [facility] Vanessa Ram PA-C Missed Appointment [address] [facility] [address] [place] [address] [place], [place] [phone] (Wo rk) Social History Tobacco Use Types [...] for the end of June. Thanks! ER ENAMELING Aviva Bowles, RN - 05/19/2011 11:41 AM [...] he does not want to drive to [facility] for an earlier appointment with Vanessa Ram. He will call in the meantime if he experiences any issues. OK to wait until 06/07? Thanks. documented in this encounter Plan of Treatment Not on filedocumented as of this encounter Visit Diagnoses Not on filedocumented in this encounter Care Teams Contact Lens Lathe Operator Relationship Specialty Start Date End Date Lilian Persaud DO PCP - General 12/23/10 05/16/12 [address] [place] [address] documented as of this encounter
--- OUTSIDE RECORDS SUMMARY | 2022-02-14 17:13 | XMS_ITS | Encounter Summary ---
:1970 Author Organization [employer] Address [address] [place] [address] Care Team Providers Name Role Phone Lilian Persaud DO Primary Care Provider Reason for Visit Reason Comments Chest Pain Encounter Details Date Type Department Care Team Description 05/13/2011 Nurse Triage [facility] Lilian Persaud DO Chest Pain [address] [address] [place] [address] [place] [address] [phone] (Wo rk) Social History Tobacco Use Types Packs/Day Years Used Date Smoking Tobacco: Never Assessed Sex Assigned at Date Recorded Not on file documented as of this encounter Nursing Notes Griselda Ventura RN - 05/13/2011 7:59 PM CST patient calling telling me he recently had an [place] and stint. Started with chest pain 5 minutes ago and feels a bit sob. Talking in full sentences and with him. Asked him to hang up and call 911. [place] they live one [place] from [facility] and can drive him as it may be faster than 911. I told him ONLY if they left Immediately. will take him now. Protocol: CHEST [id number] Affirmative: [1] Chest pain lasting > 5 minutes AND [2] history of heart disease (e.g., heart attack, bypass surgery, angina, angioplasty) Disposition of Call 911 suggested. documented in this encounter Plan of Treatment Not on filedocumented as of this encounter Visit Diagnoses Not on filedocumented in this encounter Care Teams Continuous Pickling Line Pickler Relationship Specialty Start Date End Date Lilian Persaud DO PCP - General 12/23/10 05/16/12 1415 [place] [address] documented as of this encounter
--- OUTSIDE RECORDS SUMMARY | 2022-02-14 17:13 | XMS_ITS | Encounter Summary ---
:1970 Author Organization [employer] Address [address] [place] [address] Care Team Providers Name Role Phone Lilian Persaud DO Primary Care Provider Reason for Visit Reason Comments Diabetes WART Encounter Details Date Type Department Care Team Description 04/06/2011 Office Visit [facility] Lilian Persaud, DM w/o complication type II, uncontrolled (Primary Dx); Medicine DO Other disorders of lipoid metabolism; [address] [facility] [address] Hypertriglyceridemia; [place] [address] [place], [place] Plantar wart; [phone] DM renal manif type II, uncontrolled Social History Tobacco Use Types Packs/Day Years Used Date Smoking Tobacco: Never Assessed Sex Assigned at Date Recorded Not on file documented as of this encounter Last Filed Vital Signs Vital Sign Reading Time Taken Comments Blood Pressure 120/78 04/06/2011 1:05 PM DATA WAREHOUSE SPECIALIST Pulse 103 04/06/2011 1:05 PM DATA WAREHOUSE SPECIALIST Temperature - - Respiratory Rate - - Oxygen Saturation - - Inhaled Oxygen Concentration - - Weight 99.8 kg (220 lb) 04/06/2011 1:05 PM DATA WAREHOUSE SPECIALIST Height - - Body Mass Index 32.02 [...] current dose. Follow up in 4-6 weeks. WAREHOUSE SPECIALIST documented in this encounter Progress Notes Lilian [...] DESTRUCT BENIGN SKIN LESIONS UP TO 14 [address] 1. Vomiting likely side effect of metformin. [...] uncontrolled documented in this encounter Care Teams Manager Card Relationship Specialty Start Date End Date Lilian Persaud DO PCP - General 12/23/10 05/16/12 6615 [place] [address] documented as of this encounter
--- OUTSIDE RECORDS SUMMARY | 2022-02-14 17:14 | XMS_ITS | Encounter Summary ---
:1970 Author Organization [facility] Address [address] [place] [address] Care Team Providers Name Role Phone Lilian Persaud DO Primary Care Provider Reason for Visit Reason Comments Refill Encounter Details Date Type Department Care Team Description 01/08/2011 Refill [facility] Lilian Persaud DO Refill [address] [facility] . [address] [address] [place] [address] [place] [address] [phone] (Wo rk) Social History Tobacco Use Types [...] uncontrolled documented in this encounter Care Teams Leather Production Worker Relationship Specialty Start Date End Date Lilian Persaud DO PCP - General 12/23/10 05/16/12 14[address] [facility] [place] [address] documented as of this encounter
--- OUTSIDE RECORDS SUMMARY | 2022-02-14 17:14 | XMS_ITS | Encounter Summary ---
:1970 Author Organization [employer] Addiction Medicine (ABAM)[facility] Address [address] [place] [address] Care Team Providers Name Role Phone Antonio Jerez MD Primary Care Provider Encounter Details Date Type Department Care Team Description 12/11/2010 Notes/Orders Lilian Camejo, Pure hyperglyceridemia; Medicine DO DM w/o complication type II, uncontrolle d [address] [facility] . [address] [place] [address] [place], [place] [phone] Social History Tobacco Use Types Packs/Day Years Used Date Smoking Tobacco: Never Assessed Sex Assigned at Date Recorded Not on file documented as of this encounter Plan of Treatment Not on filedocumented as of this encounter Visit Diagnoses Diagnosis Pure hyperglyceridemia (HRC) Pure hyperglyceridemia Type II or unspecified type diabetes jasen litus without mention of complication, uncontrolled documented in this encounter Care Teams Rail Track Maintainer Relationship Specialty Start Date End Date Antonio Jerez MD PCP - General 07/25/10 12/22/10 1415 [place] [address] documented as of this encounter
--- OUTSIDE RECORDS SUMMARY | 2022-02-14 17:14 | XMS_ITS | Encounter Summary ---
:1970 Author Organization [facility] Address [address], [place] [address] Care Team Providers Name Role Phone Antonio Jerez MD Primary Care Provider Encounter Details Date Type Department Care Team Description 09/04/2010 PN Conversion Only [facility] CONVERSION [address] [place] [address] Social History Tobacco Use Types Packs/Day Years Used Date Smoking Tobacco: Never Assessed Sex Assigned at Date Recorded Not on file documented as of this encounter Plan of Treatment Not on filedocumented as of this encounter Visit Diagnoses Not on filedocumented in this encounter Care Teams Home Health Physical Therapist Relationship Specialty Start Date End Date Antonio Jerez MD PCP - General 07/25/10 12/22/10 1415 [place] [address] documented as of this encounter
--- OUTSIDE RECORDS SUMMARY | 2022-02-14 17:14 | XMS_ITS | Encounter Summary ---
:1970 Author Organization [employer] Address [address] [place] [address] Care Team Providers Name Role Phone Antonio Jerez MD Primary Care Provider Reason for Visit Reason Comments Other Encounter Details Date Type Department Care Team Description 11/26/2010 Telephone [facility] Mimi Rodrigues RN Other [address] [place], [place] [address] Social History Tobacco Use Types Packs/Day Years [...] LPN - 11/26/2010 2:49 PM CDT [facility] [id number] Olga Peterson V - 11/26/2010 1:09 PM CDT Please call patient to inform that his sodium is significantly low. Low sodium could caused extreme fatigue. It will be best to be seen today at urgent care or the emergency room for IV fluid hydration Mimi Rodrigues RN - 11/26/2010 12:17 PM CDT [facility] lab calling with critical result. Sodium is 126. Triage forwarding to clinician per distribution list to address. documented in this encounter Plan of Treatment Not on filedocumented as of this encounter Visit Diagnoses Not on filedocumented in this encounter Care Teams Conveyor Belt Installer Relationship Specialty Start Date End Date Antonio Jerez MD PCP - General 07/25/10 12/22/10 14[address] [facility] [place] [address] documented as of this encounter
--- OUTSIDE RECORDS SUMMARY | 2022-02-14 17:14 | XMS_ITS | Encounter Summary ---
:1970 Author Organization [employer] Address [address] [address] Care Team Providers Name Role Phone Antonio Jerez MD Primary Care Provider Reason for Visit Reason Comments Lucy Burciaga Encounter Details Date Type Department Care Team Description 11/25/2010 Office Visit [facility] Lilian Persaud Stye; Medicine DO Dermatophytosis of the body; [address] [address] [address] DM w/o complication type II, uncontrolle d; [address] [place], [place] Other [place] [address] [phone] Social History Tobacco Use Types Packs/Day Years [...] year ago. He was diagnosed at [facility] during an ER hospital stay. Patient was [...] metabolism documented in this encounter Care Teams Customer Program Specialist Relationship Specialty Start Date End Date Antonio Jerez MD PCP - General 07/25/10 12/22/[address] [place] [address] [place] [address] documented as of this encounter
--- OUTSIDE RECORDS SUMMARY | 2022-02-14 17:14 | XMS_ITS | Encounter Summary ---
:1970 Author Organization [employer] Address [address] [place] [address] Care Team Providers Name Role Phone Antonio Jerez MD Primary Care Provider Reason for Visit Reason Comments RESULTS, TEST Encounter Details Date Type Department Care Team Description 11/27/2010 [facility]phone [facility] Lilian Persaud DO RESULTS, TEST [address] [facility] [address] [address] [place] [address] [place] [address] [phone] (Wo rk) Social History Tobacco Use Types [...] filedocumented in this encounter Care Teams Rn Surgery Icu Relationship Specialty Start Date End Date Antonio Jerez MD PCP - General 07/25/10 12/22/10 [address] [facility] [place] [address] documented as of this encounter
--- OUTSIDE RECORDS SUMMARY | 2022-02-14 17:14 | XMS_ITS | Encounter Summary ---
:1970 Author Organization [employer] Address [address] [place] [address] Care Team Providers Name Role Phone Lilian Persaud DO Primary Care Provider Reason for Visit Reason Comments Follow-up Encounter Details Date Type Department Care Team Description 01/22/2011 Office Visit [facility] Lilian Persaud, DM (ralph betes mellitus) type II uncontrolled with renal manifestation (Primary Dx); Medicine DO Hypertriglyceridemia; [address] Erectile dysfunction; [place] [address] [place], [place] Tobacco use disorder; [phone] Chest pain Social History Tobacco Use [...] denies any history of pancreatitis. Patient's last [id number] was 10.0. Patient has a history of [...] ago. He has not been to the toy electric train repairer since. Ongoing for a several weeks. No [...] 5' 9.5 (176.5 cm) Weight: 217 lb (54136 g) General: Patient alert, in NAD. Left [...] unspecified documented in this encounter Care Teams Application Trainer Relationship Specialty Start Date End Date Lilian Persaud DO PCP - General 12/23/10 05/16/12 [address] [place] [address] documented as of this encounter
--- OUTSIDE RECORDS SUMMARY | 2022-02-14 17:14 | XMS_ITS | Encounter Summary ---
:1970 Author Organization [employer] Address [address] [place] [address] Care Team Providers Name Role Phone Antonio Jerez MD Primary Care Provider Reason for Visit Reason Comments Follow-up Refill Diabetes Encounter Details Date Type Department Care Team Description 12/11/2010 Office Visit Lilian Camejo, DM w/o complication type II, uncontrolled; Medicine DO Hypertriglyceridemia; [address] Nonspecific abnormal results [place] [address] [place], [place] [phone] [address] Social History Tobacco Use Types Packs/Day Years [...] hospital discharge summary and records reviewed from [facility] from admission November 26 through November [...] has not made an appointment with the dry transfer worker yet. patient has had procedure in the [...] BP: 102/66 Pulse: 104 Weight: 215 lb (76803 g) General: Patient alert, in NAD. Head: [...] study documented in this encounter Care Teams Metal Machine Setter Relationship Specialty Start Date End Date Antonio Jerez MD PCP - General 07/25/10 12/22/[address] [place] [address] documented as of this encounter
--- OUTSIDE RECORDS SUMMARY | 2022-02-14 17:14 | XMS_ITS | Encounter Summary ---
:1970 Author Organization [facility] Address [address] [place] [address] Care Team Providers Name Role Phone Lilian Persaud DO Primary Care Provider Encounter Details Date Type Department Care Team Description 01/22/2011 Notes/Orders Lilian Camejo, Pure hyperglyceridemia; Medicine DO DM w/o complication type II, uncontrolle d [address] [facility] [address] [place] [address] [place], [place] [phone] Social History Tobacco Use Types Packs/Day Years [...] this encounter Care Teams Director Of Restaurant Operations Relationship Specialty Start Date End Date Lilian Persaud DO PCP - General 12/23/10 05/16/12 1415 [facility] [place] [place] [address] documented as of this encounter
--- OUTSIDE RECORDS SUMMARY | 2022-02-14 17:14 | XMS_ITS | Encounter Summary ---
:1970 Author Organization [employer] Address [address] [place] [address] Care Team Providers Name Role Phone Lilian Persaud DO Primary Care Provider Reason for Visit Reason Comments Forms Encounter Details Date Type Department Care Team Description 01/11/2011 Telephone [place] [facility] Lilian Persaud DO Forms [address] [address] [place] [address] [place] [address] [phone] (Wo rk) Social History Tobacco Use Types [...] on filedocumented in this encounter Care Teams Skeiner Relationship Specialty Start Date End Date Lilian Persaud DO PCP - General 12/23/10 05/16/12 1415 [place] [address] documented as of this encounter
--- OUTSIDE RECORDS SUMMARY | 2022-02-14 17:14 | XMS_ITS | Encounter Summary ---
:1970 Author Organization [facility] Address [address] [place] [address] Care Team Providers Name Role Phone Antonio Jerez MD Primary Care Provider Encounter Details Date Type Department Care Team Description 08/20/2010 PN Conversion Only [facility] Antonio Jerez , Medicine MD 14[address] [facility] . [address] [place] [address] [place] [address] (Wo rk) Social History Tobacco Use Types Packs/Day Years Used Date Smoking Tobacco: Never Assessed Sex Assigned at Date Recorded Not on file documented as of this encounter Plan of Treatment Not on filedocumented as of this encounter Visit Diagnoses Not on filedocumented in this encounter Care Teams Mutuel Clerk Relationship Specialty Start Date End Date Antonio Jerez MD PCP - General 07/25/10 12/22/10 1415 [place] [address] documented as of this encounter
--- OUTSIDE RECORDS SUMMARY | 2022-02-14 17:14 | XMS_ITS | Encounter Summary ---
:1970 Author Organization [employer] Address [address] [place] [address] Care Team Providers Name Role Phone Antonio Jerez MD Primary Care Provider Reason for Visit Reason Comments Test Request Encounter Details Date Type Department Care Team Description 12/18/2010 Telephone [facility] Lilian Persaud, Test Request [address] [address] [place] [address] [place] [address] [phone] (Wo rk) Social History Tobacco Use Types [...] filedocumented in this encounter Care Teams Pipe Fitter Street Service Relationship Specialty Start Date End Date Antonio Jerez MD PCP - General 07/25/10 12/22/10 [facility] [place] [address] documented as of this encounter
--- OUTSIDE RECORDS SUMMARY | 2022-02-14 17:14 | XMS_ITS | Encounter Summary ---
:1970 Author Organization [employer] Address [address] [place] [address] Care Team Providers Name Role Phone Lilian Persaud DO Primary Care Provider Encounter Details Date Type Department Care Team Description 12/23/2010 Lab Visit [facility] Encounter for long-term [address] (current) use of other [place] [address] medications [phone] Social History Tobacco Use Types Packs/Day Years [...] - 12/23/2010 8:20 PM CDT Performed at [facility], [address] [place] [address] Lilian Persaud DO LAB_1 Performing Organization Address [facility] Phon e Number HP CONVERSION AST (12/23/2010 2:44 PM CDT) [facility] Ala-Septic Method Time Signature Aspartate 26 0 - 45 HP CONVERSION Aminotransferase U/L Specimen Anatomical Collection Method Collection Time Receive d Time (Source) Location / / Volume Laterality 12/23/2010 2:44 PM 1 7:57 CDT PM CDT Narrative HP CONVERSION - 12/23/2010 8:20 PM CDT Performed at [facility], [address] [place] [address] Lilian Persaud DO LAB_1 Performing Organization Address [facility] Phon e Number HP CONVERSION ALT (SGPT) (12/23/2010 2:44 PM CDT) [facility] Ala-Septic Method Time Signature Alanine 38 4 - 55 HP CONVERSION Aminotransferase U/L Specimen Anatomical Collection Method Collection Time Receive d Time (Source) Location / / Volume Laterality 12/23/2010 2:44 PM 1 7:57 CDT PM CDT Narrative HP CONVERSION - 12/23/2010 8:20 PM CDT Performed at [facility], [address] [place] [address] Lilian Persaud DO LAB_1 Performing Organization Address [facility] Phon e Number HP CONVERSION VENIPUNCTURE (SOBEIDA) (12/23/2010 2:38 PM CDT) athologist Signature Venipuncture Done HP CONVERSION Specimen (Source) Anatomical Collection Method Collection Time Re ceived Time Location / / Volume Laterality 12/23/2010 2:38 PM CDT Narrative HP CONVERSION - 12/23/2010 2:38 PM CDT Performed at [facility], [address] [place], [place] [address] [address] Lilian Persaud DO LAB_1 Performing Organization Address City/State/ZIP Code Phon e Number HP CONVERSION documented in this encounter Visit Diagnoses Diagnosis Encounter for long-term (current) use of other medications documented in this encounter Care Teams Gathering Worker Relationship Specialty Start Date End Date Lilian Persaud DO PCP - General 12/23/10 05/16/[address] [place] [address] [place] [address] documented as of this encounter
--- OUTSIDE RECORDS SUMMARY | 2022-02-14 17:14 | XMS_ITS | Encounter Summary ---
:1970 Author Organization [employer] Address [address] [place] [address] Care Team Providers Name Role Phone Lilian Persaud DO Primary Care Provider Reason for Visit Reason Comments Diabetes Encounter Details Date Type Department Care Team Description 12/23/2010 Office Visit [facility] Lilian Persaud, DM (ralph betes mellitus) type II uncontrolled with renal manifestation (Primary Dx); Medicine DO Hypertriglyceridemia; [address] Tobacco use disorder; [place] [address] [place], [place] Chest pain [phone] Social History Tobacco Use Types Packs/Day Years [...] 5' 10 (177.8 cm) Weight: 217 lb (49264 g) General: patient in NAD. Alert and [...] insurance , since he cannot afford it [id number]. Patient declined cardiac workup and EKG today. [...] unspecified documented in this encounter Care Teams Turbine Technician Relationship Specialty Start Date End Date Lilian Persaud DO PCP - General 12/23/10 05/16/12 [address] [place] [address] documented as of this encounter
--- OUTSIDE RECORDS SUMMARY | 2022-02-14 17:14 | XMS_ITS | Encounter Summary ---
:1970 Author Organization [facility] Address [address], [place] [address] Care Team Providers Name Role Phone Antonio Jerez MD Primary Care Provider Encounter Details Date Type Department Care Team Description 06/19/2010 PN Conversion Only [facility] CONVERSION Arina Huff, [address] [place] [address] Social History Tobacco Use Types Packs/Day Years Used Date Smoking Tobacco: Never Assessed Sex Assigned at Date Recorded Not on file documented as of this encounter Plan of Treatment Not on filedocumented as of this encounter Visit Diagnoses Not on filedocumented in this encounter Care Teams Full Stack Net Developer Relationship Specialty Start Date End Date Antonio Jerez MD PCP - General 07/25/10 12/22/10 [address] [place] [id number] documented as of this encounter
--- OUTSIDE RECORDS SUMMARY | 2022-02-14 17:14 | XMS_ITS | Encounter Summary ---
:1970 Author Organization [facility] Address [address] [place] [address] Care Team Providers Name Role Phone Antonio Jerez MD Primary Care Provider Reason for Visit Reason Comments Other Encounter Details Date Type Department Care Team Description 12/22/2009 Telephone [facility], Message Other [address] [facility] [place], [place] [address] Social History Tobacco Use Types Packs/Day Years Used Date Smoking Tobacco: Never Assessed Sex Assigned at Date Recorded Not on file documented as of this encounter Progress Notes Stevenson Norris MD - 12/22/2009 1:40 PM CDT Phone Note filed by Stevenson Norris MD at 08/15/101643 Author: Stevenson Norris MD Service: (none) Author Type: Physician Filed: 08/15/101643 Note Time: 12/22/09 1340 Status: Signed Webfocus Developer: Stevenson Norris MD (Physician) Please schedule FU with me in 4 weeks Created on 22Dec2009 1:40pm by STEVENSON NORRIS On 24Dec2009 1:27pm RENATE MORELAND wrote: Called #[phone], left message for return call to [facility]. Called #[phone], number has been disconnected. On [id number] 10:14am TRA HATFIELD wrote: appt. made Acknowledged by TRA HATFIELD on 10:14am ECTION PRINTER documented in this encounter Plan of Treatment Not on filedocumented as of this encounter Visit Diagnoses Not on filedocumented in this encounter Care Teams Guitar Repair Technician Relationship Specialty Start Date End Date Antonio Jerez MD PCP - General 07/25/10 12/22/10 [address] [place] [address] documented as of this encounter
--- OUTSIDE RECORDS SUMMARY | 2022-02-14 17:14 | XMS_ITS | Encounter Summary ---
:[address] [facility] Address [address], [place] [address] Care Team Providers Name Role Phone Antonio Jerez MD Primary Care Provider Encounter Details Date Type Department Care Team Description 12/22/2009 PN Conversion Only [facility] FAM[facility] Alexsander Mock MD [address] [place] [address] [place] [address] (Wo rk) Social History Tobacco Use Types Packs/Day Years Used Date Smoking Tobacco: Never Assessed Sex Assigned at Date Recorded Not on file documented as of this encounter Plan of Treatment Not on filedocumented as of this encounter Visit Diagnoses Not on filedocumented in this encounter Care Teams Craniologist Relationship Specialty Start Date End Date Antonio Jerez MD PCP - General 07/25/10 12/22/10 1415 [place], [place] [address] documented as of this encounter
--- OUTSIDE RECORDS SUMMARY | 2022-02-14 17:14 | XMS_ITS | Encounter Summary ---
:1970 Author Organization [facility] Address [address] [place] [address] Care Team Providers Name Role Phone Lilian Persaud DO Primary Care Provider Encounter Details Date Type Department Care Team Description 12/23/2010 Notes/Orders Lilian Camejo Encount er for Medicine DO long-term (current) 14[address] [facility] . [address] use of other [place] [address] [place], [place] medications (Primary [phone] Dx) Social History Tobacco Use Types Packs/Day Years Used Date Smoking Tobacco: Never Assessed Sex Assigned at Date Recorded Not on file documented as of this encounter Plan of Treatment Not on filedocumented as of this encounter Visit Diagnoses Diagnosis Encounter for long-term (current) use of other medications - Primary documented in this encounter Care Teams Data Input Clerk Relationship Specialty Start Date End Date Lilian Persaud DO PCP - General 12/23/10 05/16/12 1415 [place] [address] documented as of this encounter
--- OUTSIDE RECORDS SUMMARY | 2022-02-14 17:14 | XMS_ITS | Encounter Summary ---
:1970 Author Organization [facility] Address [address] [place] [address] Care Team Providers Name Role Phone Antonio Jerez MD Primary Care Provider Encounter Details Date Type Department Care Team Description 11/25/2010 Notes/Orders Lilian Camejo, DM w/o complication Medicine DO type II, uncontrolled 14[address] [facility] . [address] [facility] [address] (Primary Dx) [place] [address] [place], [place] [phone] [address] Social History Tobacco Use Types Packs/Day Years Used Date Smoking Tobacco: Never Assessed Sex Assigned at Date Recorded Not on file documented as of this encounter Plan of Treatment Not on filedocumented as of this encounter Visit Diagnoses Diagnosis Type II or unspecified type diabetes jasen litus without mention of complication, uncontrolled - Primary documented in this encounter Care Teams Commercial Litigation Paralegal Relationship Specialty Start Date End Date Antonio Jerez MD PCP - General 07/25/10 12/22/10 14[address] [facility] [place] [address] documented as of this encounter
--- OUTSIDE RECORDS SUMMARY | 2022-02-14 17:14 | XMS_ITS | Encounter Summary ---
:1970 Author Organization [facility] Address [address] [place] [address] Care Team Providers Name Role Phone Antonio Jerez MD Primary Care Provider Encounter Details Date Type Department Care Team Description 11/25/2010 Lab Visit [facility] DM w/o complication type II, [address] uncontrolled [place], [place] [address] Social History Tobacco Use Types Packs/Day Years [...] (ABNORMAL) HGB A1C (11/25/2010 4:18 PM CDT) [facility] gist Method Time Signature Hemoglobin 10.0 (H) 0.0 - 6.0 HP CONVERSION A1CRM % Specimen Anatomical Collection Method Collection Time Receive d Time (Source) Location / / Volume Laterality 11/25/2010 4:18 PM 1 8:47 CDT PM CDT Narrative HP CONVERSION - 11/26/2010 1:31 PM CDT .Critical NA result of 126 called to an d read back by Mimi at [facility],.11/26/2010,12:15, by ALISHA Lilian Luther Cori SAL LAB_1 Performing Organization Address [facility] Phon e Number HP CONVERSION Hgb A1c [...] Lilian Douglassjen SAL LAB_1 Performing Organization Address [facility] Phon e Number HP CONVERSION [...] Lilian Douglassjen SAL LAB_1 Performing Organization Address [facility] Phon e Number HP CONVERSION [...] an d read back by Mimi at [facility],.11/26/2010,12:15, by ALISHA Lilian Persaud DO LAB_1 Performing Organization Address [facility] Phon e Number HP CONVERSION VENIPUNCTURE (SOBEIDA) (11/25/2010 4:09 PM CDT) athologist Signature Venipuncture Done HP CONVERSION Specimen (Source) Anatomical Collection Method Collection Time Re ceived Time Location / / Volume Laterality 11/25/2010 4:09 PM CDT Narrative HP CONVERSION - 11/25/2010 4:09 PM CDT Performed at [facility], [address] [place] [address] Lilian Persaud DO LAB_1 Performing Organization Address [facility] Phon e Number HP CONVERSION documented in this encounter Visit Diagnoses Diagnosis Type II or unspecified type diabetes jasen litus without mention of complication, uncontrolled documented in this encounter Care Teams Front Desk Representative Relationship Specialty Start Date End Date Antonio Jerez MD PCP - General 07/25/10 12/22/[address] [place] [address] documented as of this encounter
--- OUTSIDE RECORDS SUMMARY | 2022-02-14 17:15 | XMS_ITS | Encounter Summary ---
:1970 Author Organization [facility] Address [address] [address] Care Team Providers Name Role Phone Antonio Jerez MD Primary Care Provider Encounter Details Date Type Department Care Team Description 06/11/2008 PN Conversion Only [place] [address] [place] [address] [address] [place] [address] Social History Tobacco Use Types Packs/Day Years Used Date Smoking Tobacco: Never Assessed Sex Assigned at Date Recorded Not on file documented as of this encounter Plan of Treatment Not on filedocumented as of this encounter Procedures Procedure Name Priority Date/Time Associated Comments Diagnosis ELECTROLYTES (NA, K, Routine 06/11/2008 4:59 PM R esults for this CL, BICARB) RELATIONS MANAGER procedure are i n the results section. COMPLETE BLOOD Routine 06/11/2008 4:59 PM Results for this COUNT-W/DIFF RELATIONS MANAGER procedure are i n the results section. AMYLASE Routine 06/11/2008 4:59 PM Results f or this RELATIONS MANAGER procedure are i n the results section. VALPROIC ACID Routine 06/11/2008 4:59 PM Results for this (DEPAKENE) RELATIONS MANAGER procedure are i n the results section. ALT (SGPT) Routine 06/11/2008 4:59 PM Results f or this RELATIONS MANAGER procedure are i n the results section. AST Routine 06/11/2008 4:59 PM Results f or this RELATIONS MANAGER procedure are i n the results section. ALKALINE PHOSPHATASE, Routine 06/11/2008 4:59 PM Results for this TOTAL RELATIONS MANAGER procedure are i n the results section. documented in this encounter Results (ABNORMAL) Complete Blood Count-W/Diff (06/11/2008 4:59 PM RELATIONS MANAGER) [facility] Method Time Signature White Blood Cell 8.2 [...] - HP CONVERSION Hemoglobin Conc 36.5 gm/dL [place] RDW 11.0 11.0 - HP CONVERSION 15.0 [...] / / Volume Laterality 06/11/2008 4:59 PM RELATIONS MANAGER Vane Zarate MD LAB_1 Performing Organization Address City/State/ZIP Code Phon e Number HP CONVERSION Alkaline Phosphatase, Total (06/11/2008 4:59 PM RELATIONS MANAGER) athologist Signature Alk Phos 55 25 - 135 U/L HP CONVERSION Specimen (Source) Anatomical Collection Method Collection Time Re ceived Time Location / / Volume Laterality 06/11/2008 4:59 PM RELATIONS MANAGER Vane Zarate MD LAB_1 Performing Organization Address City/State/ZIP Code Phon e Number HP CONVERSION ALT (SGPT) (06/11/2008 4:59 PM RELATIONS MANAGER) [facility] Method Time Signature Alanine 40 4 - 55 HP CONVERSION Aminotransferase U/L Specimen (Source) Anatomical Collection Method Collection Time Re ceived Time Location / / Volume Laterality 06/11/2008 4:59 PM RELATIONS MANAGER Vane Zarate MD LAB_1 Performing Organization Address City/[facility]/ZIP Code Phon e Number HP CONVERSION Amylase (06/11/2008 4:59 PM RELATIONS MANAGER) P athologist Signature Amylase Serum 53 25 - 115 HP CONVERSION U/L Specimen (Source) Anatomical Collection Method Collection Time Re ceived Time Location / / Volume Laterality 06/11/2008 4:59 PM RELATIONS MANAGER Vane Zarate MD LAB_1 Performing Organization Address City/[facility]/ZIP Code Phon e Number HP CONVERSION AST (06/11/2008 4:59 PM RELATIONS MANAGER) Patholo gist Method Time Signature Aspartate 45 0 - 45 HP CONVERSION Aminotransferase U/L Specimen (Source) Anatomical Collection Method Collection Time Re ceived Time Location / / Volume Laterality 06/11/2008 4:59 PM RELATIONS MANAGER Vane Zarate MD LAB_1 Performing Organization Address City/[facility]/ZIP Code Phon e Number HP CONVERSION Electrolytes (NA, K, CL, Bicarb) (06/11/2008 4:59 PM RELATIONS MANAGER) P athologist Signature Sodium 139 137 - 147 HP CONVERSION mEq/L Potassium 4.3 3.5 - 5.2 HP CONVERSION mEq/L Chloride 104 98 - 110 HP CONVERSION mEq/L Bicarbonate 26 23 - 33 HP CONVERSION mmol/L Specimen (Source) Anatomical Collection Method Collection Time Re ceived Time Location / / Volume Laterality 06/11/2008 4:59 PM RELATIONS MANAGER Vane Zarate MD LAB_1 Performing Organization Address City/[facility] Phon e Number HP CONVERSION Valproic Acid (Depakene) (06/11/2008 4:59 PM RELATIONS MANAGER) Analysis Performed At Patho logist Time Signature Time Last Dose 0900 No normal HP CONVERSION Valproic Acid range Date Last Dose [id number] No normal HP CONVERSION Valproic Acid range Valproic 86 50 - 100 HP CONVERSION Acid/Depakene ug/mL (Valp) Specimen (Source) Anatomical Collection Method Collection Time Re ceived Time Location / / Volume Laterality 06/11/2008 4:59 PM RELATIONS MANAGER Vane Zarate MD LAB_1 Performing Organization Address City/State/ZIP Code Phon e Number HP CONVERSION documented in this encounter Visit Diagnoses Not on filedocumented in this encounter Care Teams Inhalation Therapist Relationship Specialty Start Date End Date Antonio Jerez MD PCP - General 07/25/10 12/22/[address] [facility] [place] [address] documented as of this encounter
--- OUTSIDE RECORDS SUMMARY | 2022-02-14 17:15 | XMS_ITS | Encounter Summary ---
:1970 Author [facility] Address [address] [address] Care Team Providers Name Role Phone Antonio Jerez MD Primary Care Provider Encounter Details Date Type Department Care Team Description 02/28/2007 PN Conversion Only CAROLINE CONVERSION Antonio Jerez, [address] [place] [address] [place] [address] (Wo rk) Social History Tobacco Use Types Packs/Day Years Used Date Smoking Tobacco: Never Assessed Sex Assigned at Date Recorded Not on file documented as of this encounter Plan of Treatment Not on filedocumented as of this encounter Procedures Procedure Name Priority Date/Time Associated Comments Diagnosis THYROID STIMULATING Routine 02/28/2007 2:40 PM Re sults for this HORMONE CUTTER BARREL DRUM procedure are i n the results section. documented in this encounter Results Thyroid Stimulating Hormone (02/28/2007 2:40 PM CUTTER BARREL DRUM) P athologist Signature Thyroid 1.50 0.20 - HP CONVERSION Stimulating 4.50 Hormone uIU/mL Specimen (Source) Anatomical Collection Method Collection Time Re ceived Time Location / / Volume Laterality 02/28/2007 2:40 PM CUTTER BARREL DRUM Antonio Jerez MD LAB_1 Performing Organization Address City/State/ZIP Code Phon e Number HP CONVERSION documented in this encounter Visit Diagnoses Not on filedocumented in this encounter Care Teams Machine Welder Relationship Specialty Start Date End Date Antonio Jerez MD PCP - General 07/25/10 12/22/[address] [place] [address] documented as of this encounter
--- OUTSIDE RECORDS SUMMARY | 2022-02-14 17:15 | XMS_ITS | Encounter Summary ---
:1970 Author [facility] Address [address] [address] Care Team Providers Name Role Phone Antonio Jerez MD Primary Care Provider Encounter Details Date Type Department Care Team Description 10/08/2009 PN Conversion Only OTHER CONVERSION [address] [place] [address] Social History Tobacco Use Types Packs/Day Years Used Date Smoking Tobacco: Never Assessed Sex Assigned at Date Recorded Not on file documented as of this encounter Plan of Treatment Not on filedocumented as of this encounter Visit Diagnoses Not on filedocumented in this encounter Care Teams Vegetable Farm Manager Relationship Specialty Start Date End Date Antonio Jerez MD PCP - General 07/25/10 12/22/10 [address] [place] [address] documented as of this encounter
--- OUTSIDE RECORDS SUMMARY | 2022-02-14 17:15 | XMS_ITS | Encounter Summary ---
:1970 Author [facility] Address [address] [address] Care Team Providers Name Role Phone Antonio Jerez MD Primary Care Provider Encounter Details Date Type Department Care Team Description 08/11/2006 Computer Technical Specialist Only CONVERSION Kya Hewitt RN Social History [...] 1851 Note Time: 08/11/06 0001 Status: Signed Film Writer: Niko Barrios prior auth for Zyprexa 5 mg approved through 08/11/07 #[id number] Pharmacy called [facility] documented in this encounter Plan of Treatment Not on filedocumented as of this encounter Visit Diagnoses Not on filedocumented in this encounter Care Teams Anodizer Relationship Specialty Start Date End Date Antonio Jerez MD PCP - General 07/25/10 12/22/10 [address] [facility] [place] [address] documented as of this encounter
--- OUTSIDE RECORDS SUMMARY | 2022-02-14 17:15 | XMS_ITS | Encounter Summary ---
:1970 Author Organization [facility] Address [address] [place] [address] Care Team Providers Name Role Phone Antonio Jerez MD Primary Care Provider Encounter Details Date Type Department Care Team Description 03/06/2009 PN Conversion Only Vane Cox MD [address] [place] [address] [address] [place] [address] Social History Tobacco Use Types Packs/Day Years Used Date Smoking Tobacco: Never Assessed Sex Assigned at Date Recorded Not on file documented as of this encounter Plan of Treatment Not on filedocumented as of this encounter Procedures Procedure Name Priority Date/Time Associated Diagnosis Comme nts AMYLASE Routine 03/06/2009 7:50 PM Results f or this MILK DRIER procedure are i n the results section. GT (GAMMA GT) Routine 03/06/2009 7:50 PM Results for this MILK DRIER procedure are i n the results section. ALT (SGPT) Routine 03/06/2009 7:50 PM Results f or this MILK DRIER procedure are i n the results section. AST Routine 03/06/2009 7:50 PM Results f or this MILK DRIER procedure are i n the results section. ALKALINE Routine 03/06/2009 7:50 PM Results f or this PHOSPHATASE, TOTAL MILK DRIER procedure are in the results section. documented in this encounter Results (ABNORMAL) GT (Gamma GT) (03/06/2009 7:50 PM MILK DRIER) [facility] Method Time Signature Gamma-Glutamyl 169 (H) 1 - 48 U/L HP CONVERSION Transferase Specimen (Source) Anatomical Collection Method Collection Time Re ceived Time Location / / Volume Laterality 03/06/2009 7:50 PM MILK DRIER Vane Zarate MD LAB_1 Performing Organization Address City/[facility]/ZIP Code Phon e Number HP CONVERSION (ABNORMAL) AST (03/06/2009 7:50 PM MILK DRIER) [facility] gist Method Time Signature Aspartate 62 (H) 0 - 45 HP CONVERSION Aminotransferase U/L Specimen (Source) Anatomical Collection Method Collection Time Re ceived Time Location / / Volume Laterality 03/06/2009 7:50 PM MILK DRIER Vane Zarate MD LAB_1 Performing Organization Address City/[facility]/ZIP Code Phon e Number HP CONVERSION Amylase (03/06/2009 7:50 PM MILK DRIER) athologist Signature Amylase Serum 58 25 - 115 HP CONVERSION U/L Specimen (Source) Anatomical Collection Method Collection Time Re ceived Time Location / / Volume Laterality 03/06/2009 7:50 PM MILK DRIER Vane Zarate MD LAB_1 Performing Organization Address City/[facility]/ZIP Code Phon e Number HP CONVERSION (ABNORMAL) ALT (SGPT) (03/06/2009 7:50 PM MILK DRIER) [facility] gist Method Time Signature Alanine 58 (H) 4 - 55 HP CONVERSION Aminotransferase U/L Specimen (Source) Anatomical Collection Method Collection Time Re ceived Time Location / / Volume Laterality 03/06/2009 7:50 PM MILK DRIER Vane Zarate MD LAB_1 Performing Organization Address City/[facility] Code Phon e Number HP CONVERSION Alkaline Phosphatase, Total (03/06/2009 7:50 PM MILK DRIER) athologist Signature Alk Phos 63 25 - 135 U/L HP CONVERSION Specimen (Source) Anatomical Collection Method Collection Time Re ceived Time Location / / Volume Laterality 03/06/2009 7:50 PM MILK DRIER Vane Zarate MD LAB_1 Performing Organization Address City/[facility] Code Phon e Number HP CONVERSION documented in this encounter Visit Diagnoses Not on filedocumented in this encounter Care Teams Ditcher Operator Relationship Specialty Start Date End Date Antonio Jerez MD PCP - General 07/25/10 12/22/10 [address] [facility] [place] [address] documented as of this encounter
--- OUTSIDE RECORDS SUMMARY | 2022-02-14 17:15 | XMS_ITS | Encounter Summary ---
:1970 Author Organization [facility] Address [address] [place] [address] Care Team Providers Name Role Phone Antonio Jerez MD Primary Care Provider Encounter Details Date Type Department Care Team Description 01/16/2009 PN Conversion Only EXECUTIVE OFFICER SPECIAL WARFARE TEAM 3850 CONV Vane Zarate MD [address] [place] [address] [address] [place] [address] Social History Tobacco Use Types Packs/Day Years [...] (01/16/2009 11:28 AM CDT) [facility] Signature Time Last Dose 2,230 No normal HP CONVERSION Valproic Acid range Date Last Dose [id number] No normal HP CONVERSION Valproic Acid range Valproic 105 (H) 50 - 100 HP CONVERSION Acid/Depakene ug/mL (Valp) Specimen (Source) Anatomical Collection Method Collection Time Re ceived Time Location / / Volume Laterality 01/16/2009 11:28 AM CDT Vane Zarate MD LAB_1 Performing Organization Address City/State/ZIP Code Phon e Number HP CONVERSION (ABNORMAL) GT (Gamma GT) (01/16/2009 11:28 AM CDT) [facility] Method Time Signature Gamma-Glutamyl 267 (H) 1 - 48 U/L HP CONVERSION Transferase Specimen (Source) Anatomical Collection Method Collection Time Re ceived Time Location / / Volume Laterality 01/16/2009 11:28 AM CDT Vane Zarate MD LAB_1 Performing Organization Address City/[facility]/ZIP Code Phon e Number HP CONVERSION AST (01/16/2009 11:28 AM CDT) [facility] Method Time Signature Aspartate 34 0 - 45 HP CONVERSION Aminotransferase U/L Specimen (Source) Anatomical Collection Method Collection Time Re ceived Time Location / / Volume Laterality 01/16/2009 11:28 AM CDT Vane Zarate MD LAB_1 Performing Organization Address City/[facility]/ZIP Code Phon e Number HP CONVERSION Amylase (01/16/2009 11:28 AM CDT) athologist Signature Amylase Serum 37 25 - 115 HP CONVERSION U/L Specimen (Source) Anatomical Collection Method Collection Time Re ceived Time Location / / Volume Laterality 01/16/2009 11:28 AM CDT Vane Zarate MD LAB_1 Performing Organization Address City/[facility]/ZIP Code Phon e Number HP CONVERSION (ABNORMAL) ALT (SGPT) (01/16/2009 11:28 AM CDT) [facility] gist Method Time Signature Alanine 57 (H) [...] Vane Zarate MD LAB_1 Performing Organization Address City/[facility] Code Phon e Number HP CONVERSION [...] - HP CONVERSION Hemoglobin Conc 36.5 gm/dL [place] RDW 11.2 11.0 - HP CONVERSION 15.0 [...] filedocumented in this encounter Care Teams Rail Grinder Relationship Specialty Start Date End Date Antonio Jerez MD PCP - General 07/25/10 12/22/10 [address] [facility] [place] [address] documented as of this encounter
--- OUTSIDE RECORDS SUMMARY | 2022-02-14 17:15 | XMS_ITS | Encounter Summary ---
:1970 Author [facility] Address [address] [place] [address] Care Team Providers Name Role Phone Michel Jerez MD Primary Care Provider Encounter Details Date Type Department Care Team Description 09/15/2005 [facility]rez MD [address] [facility] . [address] [place] [address] [place] [address] [phone] (Wo rk) Social History Tobacco Use Types [...] 1217 Note Time: 09/15/05 0001 Status: Signed Gusset Edger: Michel Jerez MD (Physician) NAME: SHARLENE VARNER MR: [id number] ACCT: [id number] VISIT: [id number] DICTATING CLINICIAN: MICHEL JEREZ MD JOB: [id number] CLINIC PROGRESS NOTE DATE OF VISIT: 09/15/2005 [...] ASSESSMENT: 1. Skin tag. 2. Bipolar disorder. AAS:[id number] C: 09/16/05 12:42 DOCUMENT: [id number] documented in this encounter Plan of Treatment Not on filedocumented as of this encounter Visit Diagnoses Not on filedocumented in this encounter Care Teams Heel Top Lift Splitter Relationship Specialty Start Date End Date Michel Jerez MD PCP - General 07/25/10 12/22/10 [facility] [place] [address] documented as of this encounter
--- OUTSIDE RECORDS SUMMARY | 2022-02-14 17:15 | XMS_ITS | Encounter Summary ---
:1970 Author [facility] Address [address] [address] Care Team Providers Name Role Phone Antonio Jerez MD Primary Care Provider Encounter Details Date Type Department Care Team Description 01/17/2009 Mdm Sr Only CONVERSION CONVERSION Vane Zarate MD [address] [place], [place] [address] (Wo rk) Social History [...] 1640 Note Time: 01/17/09 0001 Status: Signed Dough Raiser: Vane Zarate MD (Physician) blood work shows elevated ALT and GGT, and depakote level of 105. Advised patient we may need to look at different mood stabilizer. documented in this encounter Plan of Treatment Not on filedocumented as of this encounter Visit Diagnoses Not on filedocumented in this encounter Care Teams Marine Superintendent Relationship Specialty Start Date End Date Antonio Jerez MD PCP - General 07/25/10 12/22/10 [address] [place] [address] documented as of this encounter
--- OUTSIDE RECORDS SUMMARY | 2022-02-14 17:15 | XMS_ITS | Encounter Summary ---
:1970 Author [facility] Address [address] [address] Care Team Providers Name Role Phone Antonio Jerez MD Primary Care Provider Encounter Details Date Type Department Care Team Description 10/08/2005 PN Conversion Only PARKER CONVERSIO Antonio Philip, [address] [facility] [address] [address] [place], [place] [address] (Wo rk) Social History Tobacco Use [...] on filedocumented in this encounter Care Teams Cognos Consultant Relationship Specialty Start Date End Date Antonio Jerez MD PCP - General 07/25/10 12/22/10 [address] [place] [address] documented as of this encounter
--- OUTSIDE RECORDS SUMMARY | 2022-02-14 17:15 | XMS_ITS | Encounter Summary ---
:1970 Author [facility] Address [address] [place] [address] Care Team Providers Name Role Phone Antonio Jerez MD Primary Care Provider Encounter Details Date Type Department Care Team Description 06/11/2008 General Passenger Agent Only CONVERSION CONVERSION Vane Zarate MD [address] [place], [place] [address] (Wo rk) Social History [...] 1059 Note Time: 06/11/08 0001 Status: Signed Spine Nurse: Vane Zarate MD (Physician) patient did not appear for this appointment. he was seen in an urgent appointment yesterday; t withhis one might have been scheduled as a backup or in error. IAN TEACHER documented in this encounter Plan of Treatment Not on filedocumented as of this encounter Visit Diagnoses Not on filedocumented in this encounter Care Teams Pack Room Operator Relationship Specialty Start Date End Date Antonio Jerez MD PCP - General 07/25/10 12/22/10 [address] [place] [address] documented as of this encounter
--- OUTSIDE RECORDS SUMMARY | 2022-02-14 17:15 | XMS_ITS | Encounter Summary ---
:1970 Author Organization [facility] Address [address] [address] Care Team Providers Name Role Phone Antonio Jerez MD Primary Care Provider Encounter Details Date Type Department Care Team Description 12/12/2009 PN Conversion Only RASTAFARI CONVERSION Social History Tobacco Use Types Packs/Day Years Used Date Smoking Tobacco: Never Assessed Sex Assigned at Date Recorded Not on file documented as of this encounter Plan of Treatment Not on filedocumented as of this encounter Visit Diagnoses Not on filedocumented in this encounter Care Teams Rehab Assistant Relationship Specialty Start Date End Date Antonio Jerez MD PCP - General 07/25/10 12/22/[address] [place] [address] documented as of this encounter
--- OUTSIDE RECORDS SUMMARY | 2022-02-14 17:15 | XMS_ITS | Encounter Summary ---
:[address] [facility] Address [address] [address] Care Team Providers Name Role Phone Antonio Jerez MD Primary Care Provider Encounter Details Date Type Department Care Team Description 11/29/2009 PN Conversion Only OTHER CONVERSION [address] [place] [address] Social History Tobacco Use Types Packs/Day Years Used Date Smoking Tobacco: Never Assessed Sex Assigned at Date Recorded Not on file documented as of this encounter Plan of Treatment Not on filedocumented as of this encounter Visit Diagnoses Not on filedocumented in this encounter Care Teams Core Blower Relationship Specialty Start Date End Date Antonio Jerez MD PCP - General 07/25/10 12/22/10 [address] [place] [address] documented as of this encounter
--- OUTSIDE RECORDS SUMMARY | 2022-02-14 17:15 | XMS_ITS | Encounter Summary ---
:1970 Author Organization [facility] Address [address] [address] Care Team Providers Name Role Phone Antonio Jerez MD Primary Care Provider Encounter Details Date Type Department Care Team Description 08/04/2007 PN [facility] Kevin Guaman, [address] [place] [address] [address] [facility] [address] [place] [address] Social History Tobacco Use Types [...] (ABNORMAL) ALT (SGPT) (08/04/2007 8:30 AM CDT) [facility] [employer] [facility] gist Method Time Signature [...] CONVERSION Valproic Acid range Date Last Dose [id number] No normal HP CONVERSION Valproic Acid range [...] filedocumented in this encounter Care Teams It Disaster Recovery Manager Relationship Specialty Start Date End Date Antonio Jerez MD PCP - General 07/25/10 12/22/10 [facility] [place] [address] documented as of this encounter
--- OUTSIDE RECORDS SUMMARY | 2022-02-14 17:15 | XMS_ITS | Encounter Summary ---
:1970 Author [facility] Address [address] [address] Care Team Providers Name Role Phone Antonio Jerez MD Primary Care Provider Encounter Details Date Type Department Care Team Description 02/24/2009 Data Center Project Manager Only CONVERSION CONVERSION Vane Zarate MD [address] [place], [place] [address] (Wo rk) Social History Tobacco Use Types Packs/Day Years Used Date Smoking Tobacco: Never Assessed Sex Assigned at Date Recorded Not on file documented as of this encounter Progress Notes Vane Zarate MD - 02/24/2009 12:01 AM CST Progress Notes signed by Vane Zarate MD at 02/24/09 1102 Author: Vane Zarate MD Service: (none) Author Type: Physician Filed: 08/15/10 0275 Note Time: 02/24/09 0001 Status: Signed On Call Pharmacy Technician: Vane Zarate MD (Physician) Please accept this note as documentation that Mr. Krishnamurthy will need to miss work until March 03 owing to medication adjustments. Thank you for your attention. UM CASTER documented in this encounter Plan of Treatment Not on filedocumented as of this encounter Visit Diagnoses Not on filedocumented in this encounter Care Teams Credit Checker Relationship Specialty Start Date End Date Antonio Jerez MD PCP - General 07/25/10 12/22/10 [address] [place] [address] documented as of this encounter
--- OUTSIDE RECORDS SUMMARY | 2022-02-14 17:15 | XMS_ITS | Encounter Summary ---
:1970 Author Organization [facility] Address [address] [address] Care Team Providers Name Role Phone Antonio Jerez MD Primary Care Provider Encounter Details Date Type Department Care Team Description 12/21/2009 PN Conversion Only CONVERSION CONVERSION Ida Woodall MD [address] [place] [address] Social History Tobacco Use Types Packs/Day Years Used Date Smoking Tobacco: Never Assessed Sex Assigned at Date Recorded Not on file documented as of this encounter Plan of Treatment Not on filedocumented as of this encounter Visit Diagnoses Not on filedocumented in this encounter Care Teams Onion Topper Relationship Specialty Start Date End Date Antonio Jerez MD PCP - General 07/25/10 12/22/10 [address] [place], [place] [address] documented as of this encounter
--- OUTSIDE RECORDS SUMMARY | 2022-02-14 17:15 | XMS_ITS | Encounter Summary ---
:1970 Author Organization [facility] Address [address] [place] [address] Care Team Providers Name Role Phone Michel Daniel MD Primary Care Provider Reason for Visit Reason Comments Other Encounter Details Date Type Department Care Team Description 12/16/2009 [facility] MD Other [address] [facility] . [address] [place] [place] [address] [place] [address] [phone] (Wo rk) Social History Tobacco Use Types Packs/Day Years Used Date Smoking Tobacco: Never Assessed Sex Assigned at Date Recorded Not on file documented as of this encounter Progress Notes Center, Message - 12/16/2009 10:03 AM CDT Phone Note filed by [employer] at 08/15/10 7689 Author: [employer] Service: (none) Author Type: (none) Filed: 08/15/10 Note Time: 12/16/09 1003 Status: Signed Vice President Investor Relations: [employer] (Resource) PRESCRIPTION REFILL Please provide enough refills to last until patient's next visit. Comment:- Pharmacy Seq #:-[phone] Pharmacy Name-Phone/Fax:-[facility] Street or City:-[place] Clinician Name:-Talisha Drug Name/Strength:-risperdal 3mg Sig: Dose/Route/Freq:-take 2 tabs po qhs Quantity & Last Fill:-60 10/08/09 *ECODE~PNRF Created on 16Dec2009 10:03am by ANALY LIM On 16Dec2009 11:55am MICHEL DANIEL wrote: sent Acknowledged by MICHEL DANIEL on 11:55am DULE CHECKER documented in this encounter Plan of Treatment Not on filedocumented as of this encounter Visit Diagnoses Not on filedocumented in this encounter Care Teams Handkerchief Presser Relationship Specialty Start Date End Date Michel Daniel MD PCP - General 07/25/10 12/22/10 [address] [place] [address] documented as of this encounter
--- OUTSIDE RECORDS SUMMARY | 2022-02-14 17:15 | XMS_ITS | Encounter Summary ---
:1970 Author Organization [facility] Address [address] [address] Care Team Providers Name Role Phone Antonio Jerez MD Primary Care Provider Encounter Details Date Type Department Care Team Description 03/23/2006 PN Conversion Only CAROLINE CONVERSION Antonio Jerez, [address] [place] [address] [place] [address] (Wo rk) Social History Tobacco Use Types Packs/Day Years Used Date Smoking Tobacco: Never Assessed Sex Assigned at Date Recorded Not on file documented as of this encounter Plan of Treatment Not on filedocumented as of this encounter Visit Diagnoses Not on filedocumented in this encounter Care Teams Steno Typist Relationship Specialty Start Date End Date Antonio Jerez MD PCP - General 07/25/10 12/22/10 [address] [place] [address] documented as of this encounter
--- OUTSIDE RECORDS SUMMARY | 2022-02-14 17:15 | XMS_ITS | Encounter Summary ---
:1970 Author Organization [facility] Address [address] [address] Care Team Providers Name Role Phone Antonio Jerez MD Primary Care Provider Encounter Details Date Type Department Care Team Description 11/06/2009 PN Conversion Only OTHER CONVERSION [address] [place] [address] Social History Tobacco Use Types Packs/Day Years Used Date Smoking Tobacco: Never Assessed Sex Assigned at Date Recorded Not on file documented as of this encounter Plan of Treatment Not on filedocumented as of this encounter Visit Diagnoses Not on filedocumented in this encounter Care Teams Radiologist Physician Relationship Specialty Start Date End Date Antonio Jerez MD PCP - General 07/25/10 12/22/10 [address] [place] [address] documented as of this encounter
--- OUTSIDE RECORDS SUMMARY | 2022-02-14 17:15 | XMS_ITS | Encounter Summary ---
:1970 Author Organization [facility] Address [address] [place] [address] Care Team Providers Name Role Phone Michel Daniel MD Primary Care Provider Encounter Details Date Type Department Care Team Description 10/04/2005 Office Visit [facility] Michel Daniel MD [address] [facility] . [address] [place] [address] [place] [address] [phone] (Wo rk) Social History Tobacco Use Types [...] 1237 Note Time: 10/04/05 0001 Status: Signed Manager Cardiovascular: Michel Daniel MD (Physician) NAME: SHARLENE VARNER MR: [id number] ACCT: [id number] VISIT: [id number] DICTATING CLINICIAN: MICHEL DANIEL MD JOB: [id number] CLINIC PROGRESS NOTE DATE OF VISIT: 10/04/2005 [...] blood sugars periodically on and/or off Zyprexa. AAS:[id number] C: 10/05/05 10:37 DOCUMENT: [id number] documented in this encounter Plan of Treatment Not on filedocumented as of this encounter Visit Diagnoses Not on filedocumented in this encounter Care Teams Handle Bar Assembler Relationship Specialty Start Date End Date Michel Daniel MD PCP - General 07/25/10 12/22/10 [facility]5 [place] [address] documented as of this encounter
--- OUTSIDE RECORDS SUMMARY | 2022-02-14 17:15 | XMS_ITS | Encounter Summary ---
:1970 Author Organization [facility] Address [address] [place] [address] Care Team Providers Name Role Phone Michel Daniel MD Primary Care Provider Encounter Details Date Type Department Care Team Description 03/23/2006 Procedure Visit [facility] Michel Daniel, [address] [facility] [place] [address] [address] [facility] [phone] [place], [place] [address] (Wo rk) Social History [...] 1556 Note Time: 03/23/06 0001 Status: Signed Renal Case Manager: Michel Daniel MD (Physician) NAME: SHARLENE VARNER MR#: [id number] ACCT: [id number] VISIT: [id number] DICTATING CLINICIAN: MICHEL DANIEL MD JOB: [id number] LOC: 1202 CLINIC PROGRESS NOTE DATE OF [...] to him with these results. ASSESSMENT: PLAN: [id number] C: 03/24/06 08:07 DOCUMENT: [id number] IC WELDER documented in this encounter Plan of Treatment Not on filedocumented as of this encounter Visit Diagnoses Not on filedocumented in this encounter Care Teams Family Protection Specialist Relationship Specialty Start Date End Date Michel Daniel MD PCP - General 07/25/10 12/22/10 [address] [place] [address] documented as of this encounter
--- OUTSIDE RECORDS SUMMARY | 2022-02-14 17:15 | XMS_ITS | Encounter Summary ---
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 Note written per his request. time spent: 20 minutes return visit: Two weeks *SH~INEZ~dena documented in this encounter Plan of Treatment Not on filedocumented as of this encounter Visit Diagnoses Not on filedocumented in this encounter Care Teams Conical Mixer Relationship Specialty Start Date End Date Antonio Jerez MD PCP - General 07/25/10 12/22/10 [facility]5 [place] [address] documented as of this encounter
--- OUTSIDE RECORDS SUMMARY | 2022-02-14 17:15 | XMS_ITS | Encounter Summary ---
:1970 Author [facility] Address [address] [place] [address] Care Team Providers Name Role Phone Michel Daniel MD Primary Care Provider Reason for Visit Reason Comments Other Encounter Details Date Type Department Care Team Description 03/20/2007 Telephone [facility], Alphonso Belcher RN Other [address] [facility] . [place], [place] [address] Social History Tobacco Use Types Packs/Day Years Used Date Smoking Tobacco: Never Assessed Sex Assigned at Date Recorded Not on file documented as of this encounter Progress Notes Herlinda Lucio HUC - 03/20/2007 8:44 AM CST Phone Note filed by Herlinda Akbar MA at 08/12/10919 Author: Herlinda Akbar MA Service: (none) Author Type: (none) Filed: 08/12/10919 Note Time: 03/20/07843 Status: Signed Bacteriologist Soil: Niko Conversion Medication Issue/Refill Caller Name/Relationship:simone Primary Internal Sales Engineer:makenzie Comment/Symptom:pt is wondering if he should get more beta blockers Pharmacy [facility] Phone #[facility] Street or City:[place] Drug Name:metoprolol Strength:50mg Dose/Route/Freq:1/2 tab 2x daily Patient Ombudsperson:simone Best call back number:[phone] Is it OK to leave a confidential message on this voicemail?yes Created on 20Mar2007 8:44am by HERLINDA AKBAR On 20Mar2007 9:39am MICHEL DANIEL wrote: There does not appear to be a reason to be on beta blockers Acknowledged by MICHEL DANIEL on 9:39am On 20Mar2007 10:38am ALPHONSO QUESADA wrote: info given to pt as above. Acknowledged by ALPHONSO QUESADA on 10:38am WARE LICENSING SPECIALIST documented in this encounter Plan of Treatment Not on filedocumented as of this encounter Visit Diagnoses Not on filedocumented in this encounter Care Teams Associate Professor Of Sociology Relationship Specialty Start Date End Date Michel Daniel MD PCP - General 07/25/10 12/22/10 [address] [place] [address] documented as of this encounter
--- OUTSIDE RECORDS SUMMARY | 2022-02-14 17:15 | XMS_ITS | Encounter Summary ---
:1970 Author Organization [facility] Address [address] [place] [address] Care Team Providers Name Role Phone Michel Daniel MD Primary Care Provider Encounter Details Date Type Department Care Team Description 03/24/2009 Office Visit [facility] Michel Daniel MD 14[address] [facility] . [address] [place] [address] [place] [address] [phone] (Wo rk) Social History Tobacco Use Types Packs/Day Years Used Date Smoking Tobacco: Never Assessed Sex Assigned at Date Recorded Not on file documented as of this encounter Last Filed Vital Signs Vital Sign Reading Time Taken Comments Blood Pressure 128/76 03/24/2009 1:14 PM TRAFFIC REPORTER Pulse 88 03/24/2009 1:14 PM TRAFFIC REPORTER Temperature - - Respiratory Rate - - Oxygen Saturation - - Inhaled Oxygen Concentration - - Weight 99.5 kg (219 lb 4 oz) 03/24/2009 1:14 PM TRAFFIC REPORTER C: 99.5kg Height - - Body Mass Index 31.46 06/24/2008 12:32 PM TRAFFIC REPORTER documented in this encounter Progress Notes Michel Daniel MD - 03/24/2009 12:01 AM CST Progress Notes signed by Michel Daniel MD at 03/25/09 0748 Author: Michel Daniel MD Service: (none) Author Type: Physician Filed: 08/15/10 1824 Note Time: 03/24/09 0001 Status: Signed Sleep Technician: Michel Daniel MD (Physician) NAME: SHARLENE VARNER MR#: [id number] ACCT: [id number] VISIT: [id number] DICTATING CLINICIAN: MICHEL DANIEL MD CONFIRM #: [id number] LOC: 1202 CLINIC PROGRESS NOTE DATE OF [...] attempt to lose some weight. Recheck p.r.n. AAS:[id number] C: 03/24/09 16:45 CONFIRM #: [id number] FIC REPORTER documented in this encounter Plan of Treatment Not on filedocumented as of this encounter Visit Diagnoses Not on filedocumented in this encounter Care Teams Commissioner Of Internal Revenue Relationship Specialty Start Date End Date Michel Daniel MD PCP - General 07/25/10 12/22/10 [address] [place] [address] documented as of this encounter
--- OUTSIDE RECORDS SUMMARY | 2022-02-14 17:15 | XMS_ITS | Encounter Summary ---
:1970 Author Organization [facility] Address [address] [address] Care Team Providers Name Role Phone Antonio Jerez MD Primary Care Provider Encounter Details Date Type Department Care Team Description 10/08/2009 PN Conversion Only TEMPLE CONVERSION Richie Woodall MD [address] [place], [place] [address] Social History Tobacco Use Types Packs/Day Years [...] section. documented in this encounter Results [facility] Stress Echocardiogram (10/08/2009 11:59 AM CDT) Specimen [...] on filedocumented in this encounter Care Teams Referral Clerk Relationship Specialty Start Date End Date Antonio Jerez MD PCP - General 07/25/10 12/22/[address] [place] [address] documented as of this encounter
--- OUTSIDE RECORDS SUMMARY | 2022-02-14 17:15 | XMS_ITS | Encounter Summary ---
:1970 Author Organization [facility] Address [address] [place] [address] Care Team Providers Name Role Phone Michel Daniel MD Primary Care Provider Encounter Details Date Type Department Care Team Description 02/28/2007 Office Visit [facility] Michel Daniel MD 14[address] [facility] . [address] [place] [address] [place] [address] [phone] (Wo rk) Social History Tobacco Use Types Packs/Day Years Used Date Smoking Tobacco: Never Assessed Sex Assigned at Date Recorded Not on file documented as of this encounter Last Filed Vital Signs Vital Sign Reading Time Taken Comments Blood Pressure 136/84 02/28/2007 2:19 PM LEVEL VIAL SEALER Pulse 80 02/28/2007 2:19 PM LEVEL VIAL SEALER Temperature - - Respiratory Rate - - Oxygen Saturation - - Inhaled Oxygen Concentration - - Weight 97.1 kg (213 lb 15.7 oz) 02/28/2007 2:19 PM LEVEL VIAL SEALER C: 97.1kg Height - - Body Mass Index - - documented in this encounter Progress Notes Michel Daniel MD - 02/28/2007 12:01 AM CST Progress Notes signed by Michel Daniel MD at 03/06/07 0746 Author: Michel Daniel MD Service: (none) Author Type: Physician Filed: 08/14/10 4690 Note Time: 02/28/07 0001 Status: Signed Insurance Verification Clerk: Michel Daniel MD (Physician) NAME: SHARLENE VARNER MR#: [id number] ACCT: [id number] VISIT: [id number] DICTATING CLINICIAN: MICHEL DANIEL MD JOB: [id number] LOC: 1202 CLINIC PROGRESS NOTE DATE OF VISIT: 02/28/2007 SUBJECTIVE: : 1970. A 37-year-old male with history of bipolar disorder who is in today stating that he would like to have his thyroid checked because he understands that an overactive thyroid could cause manic episodes. Rustam is under the care of Dr. Hansno in mental health and was seen there [...] of him being hyperthyroid are very low. AAS:[id number] C: 03/01/07 16:00 DOCUMENT: [id number] L VIAL SEALER documented in this encounter Plan of Treatment Not on filedocumented as of this encounter Visit Diagnoses Not on filedocumented in this encounter Care Teams Dean Of Admissions Relationship Specialty Start Date End Date Michel Daniel MD PCP - General 07/25/10 12/22/10 [facility]5 [place] [address] documented as of this encounter
--- OUTSIDE RECORDS SUMMARY | 2022-02-14 17:15 | XMS_ITS | Encounter Summary ---
:1970 Author Organization [facility] Address [address] [address] Care Team Providers Name Role Phone Antonio Jerez MD Primary Care Provider Encounter Details Date Type Department Care Team Description 12/01/2009 PN Conversion Only RELIGION CONVERSION Richie Woodall MD [address] [place] [address] Social History Tobacco Use Types Packs/Day Years Used Date Smoking Tobacco: Never Assessed Sex Assigned at Date Recorded Not on file documented as of this encounter Plan of Treatment Not on filedocumented as of this encounter Visit Diagnoses Not on filedocumented in this encounter Care Teams Shearer Helper Relationship Specialty Start Date End Date Antonio Jerez MD PCP - General 07/25/10 12/22/10 [address] [place], [place] [address] documented as of this encounter
--- OUTSIDE RECORDS SUMMARY | 2022-02-14 17:15 | XMS_ITS | Encounter Summary ---
:1970 Author Organization [facility] Address [address] [place] [address] Care Team Providers Name Role Phone Antonio Jerez MD Primary Care Provider Encounter Details Date Type Department Care Team Description 03/23/2006 PN Conversion Only HAV[place]I CONVERSION Antonio Jerez, [address] [facility] [place] [address] [address] [facility] [place] [address] (Wo rk) Social History Tobacco Use Types Packs/Day Years Used Date Smoking Tobacco: Never Assessed Sex Assigned at Date Recorded Not on file documented as of this encounter Plan of Treatment Not on filedocumented as of this encounter Procedures Procedure Name Priority Date/Time Associated Comments Diagnosis GLUCOSE Routine 03/23/2006 1:50 PM Results f or this TRANSFORMER INSPECTOR procedure are i n the results section. HGB A1C Routine 03/23/2006 1:50 PM Results f or this TRANSFORMER INSPECTOR procedure are i n the results section. HOSPITAL OBTAINED Routine 03/23/2006 1:48 PM Resu lts for this ANATOMICAL PATHOLOGY TRANSFORMER INSPECTOR procedu re are in REQUEST the results section. SURGICAL PATHYADY Routine 03/23/2006 1:43 PM Re sults for this NICOLLET TRANSFORMER INSPECTOR procedure are i n the results section. documented in this encounter Results (ABNORMAL) Glucose (03/23/2006 1:50 PM TRANSFORMER INSPECTOR) P athologist Signature Lab Glucose 120 (H) 60 - 100 HP CONVERSION mg/dL Specimen (Source) Anatomical Collection Method Collection Time Re ceived Time Location / / Volume Laterality 03/23/2006 1:50 PM TRANSFORMER INSPECTOR Antonio Jerez MD LAB_1 Performing Organization Address City/State/ZIP Code Phon e Number HP CONVERSION Hgb A1c (03/23/2006 1:50 PM TRANSFORMER INSPECTOR) athologist Signature HGB A1C 5.4 <6.0 % HP CONVERSION Specimen (Source) Anatomical Collection Method Collection Time Re ceived Time Location / / Volume Laterality 03/23/2006 1:50 PM TRANSFORMER INSPECTOR Antonio Jerez MD LAB_1 Performing Organization Address City/[facility]/ZIP Code Phon e Number HP CONVERSION Anatomical Pathology Request (03/23/2006 1:48 PM TRANSFORMER INSPECTOR) athologist Signature Surgical Path Done No normal HP CONVERSION Ord range Specimen (Source) Anatomical Collection Method Collection Time Re ceived Time Location / / Volume Laterality 03/23/2006 1:48 PM TRANSFORMER INSPECTOR Antonio Jerez MD LAB_1 Performing Organization Address [facility] Code Phon e Number HP CONVERSION Pathology Report (03/23/2006 1:43 PM TRANSFORMER INSPECTOR) [facility] gist Method Time Signature Surgical SEE TEXT No normal HP CONVERSION Pathology range Comment: Patient: SHARLENE VARNER T ?S URGICAL PATHOLOGY REPORT Pathology # ??[id number] ?Date Obtained: ? Date Received: DIAGNOSIS: ?Skin, groin: ?- ??Benign squamous keratosis. ?Bi Alaniz M.D. ?(electronic signature) TRH/TRH/kmr Date of Report: 03/25/06 Pathology # ??[id number] ?Date Obtained: ? Date Received: ORGAN/TISSUE SITE: ?Groin GROSS DESCRIPTION: ?Received in formalin is a 0.3 x 0. 3 x 0.2 cm irregular whipple-pink skin. ??The ?surface of the skin displays a 0.2 cm pale lesion. ??The skin is inked and ?submitted in toto in cassette [id number]. MJL/dke MICROSCOPIC DESCRIPTION: ?Sections examined show skin with h yperkeratosis, hypergranulosis and ?acanthosis. ??There is no evidence of malignancy. ??No viral changes are ?seen. Specimen (Source) Anatomical Collection Method Collection Time Re ceived Time Location / / Volume Laterality 03/23/2006 1:43 PM TRANSFORMER INSPECTOR Antonio Jerez MD LAB_1 Performing Organization Address City/State/ZIP Code Phon e Number HP CONVERSION documented in this encounter Visit Diagnoses Not on filedocumented in this encounter Care Teams Aviation Manager Relationship Specialty Start Date End Date Antonio Jerez MD PCP - General 07/25/10 12/22/10 [address] [place] [address] documented as of this encounter
--- OUTSIDE RECORDS SUMMARY | 2022-02-14 17:15 | XMS_ITS | Encounter Summary ---
:1970 Author Organization [facility] Address [address] [address] Care Team Providers Name Role Phone Antonio Jerez MD Primary Care Provider Encounter Details Date Type Department Care Team Description 07/30/2008 Extra Gang Supervisor Only CONVERSION CONVERSION Vane Zarate MD [address] [place], [place] [address] (Wo rk) Social History [...] 1219 Note Time: 07/30/08 0001 Status: Signed Cold Saw Operator: Vane Zarate MD (Physician) Please accept this note as documentation that I am recommending that Mr. Krishnamurthy return to work with no restrictions. Thank you very much. documented in this encounter Plan of Treatment Not on filedocumented as of this encounter Visit Diagnoses Not on filedocumented in this encounter Care Teams Radiation Oncology Nurse Relationship Specialty Start Date End Date Antonio Jerez MD PCP - General 07/25/10 12/22/10 [address] [place] [address] documented as of this encounter
--- OUTSIDE RECORDS SUMMARY | 2022-02-14 17:15 | XMS_ITS | Encounter Summary ---
:1970 Author Organization [facility] Address [address] [place] [address] Care Team Providers Name Role Phone Michel Daniel MD Primary Care Provider Encounter Details Date Type Department Care Team Description 03/17/2009 Office Visit [facility] Michel Daniel MD [address] [facility] . [address] [place] [address] [place] [address] [phone] (Wo rk) Social History Tobacco Use Types Packs/Day Years Used Date Smoking Tobacco: Never Assessed Sex Assigned at Date Recorded Not on file documented as of this encounter Last Filed Vital Signs Vital Sign Reading Time Taken Comments Blood Pressure 134/76 03/17/2009 12:46 PM DOCUMENT ADVISOR Pulse 88 03/17/2009 12:46 PM DOCUMENT ADVISOR Temperature - - Respiratory Rate - - Oxygen Saturation - - Inhaled Oxygen Concentration - - Weight 98.8 kg (217 lb 11.6 oz) 03/17/2009 12:46 PM C: 98.8kg DOCUMENT ADVISOR Height - - Body Mass Index 31.24 06/24/2008 12:32 PM DOCUMENT ADVISOR documented in this encounter Progress Notes Michel Daniel MD - 03/17/2009 12:01 AM CST Progress Notes signed by Michel Daniel MD at 03/19/09 0717 Author: Michel Daniel MD Service: (none) Author Type: Physician Filed: 08/15/10 1816 Note Time: 03/17/09 0001 Status: Signed Yacht Master: Michel Daniel MD (Physician) NAME: SHARLENE VARNER MR#: [id number] ACCT: [id number] VISIT: [id number] DICTATING CLINICIAN: MICHEL DANIEL MD CONFIRM #: [id number] LOC: 1202 CLINIC PROGRESS NOTE DATE OF [...] Vane Zarate, who evidently will be leaving [facility], but he states that he intends to follow her privately into her private office. He was seen by Dr. Zarate on 03/10 and medicine was adjusted at that time and Risperdal was added. He states that he developed muscle spasms, was in the emergency room at [facility] over the weekend. Was started on Benadryl. Had medication change control manager the telephone on 03/14 when Stelazine, which [...] get back to him with above results. AAS:[id number] C: 03/17/09 15:06 CONFIRM #: [id number] MENT ADVISOR documented in this encounter Plan of Treatment Not on filedocumented as of this encounter Visit Diagnoses Not on filedocumented in this encounter Care Teams Tractor Trailer Technician Relationship Specialty Start Date End Date Michel Daniel MD PCP - General 07/25/10 12/22/10 [address] [facility] [place] [address] documented as of this encounter
--- OUTSIDE RECORDS SUMMARY | 2022-02-14 17:15 | XMS_ITS | Encounter Summary ---
:1970 Author Organization [facility] Address [address], [place] [address] Care Team Providers Name Role Phone Antonio Jerez MD Primary Care Provider Encounter Details Date Type Department Care Team Description 09/17/2005 Office Visit [facility] Armida Mtz MD [address] [facility] . [address] [place] [address] [place] [address] Social History Tobacco Use Types Packs/Day Years [...] signed by Armida Mtz MD at 09/18/05 2941 Author: Armida Mtz MD Service: (none) Author Type: Physician Filed: 08/14/10 1219 Note Time: 09/17/05 0001 Status: Signed Sleep Lab Technologist: Armida Mtz MD (Physician) NAME: SHARLENE VARNER MR: [id number] ACCT: [id number] VISIT: [id number] DICTATING CLINICIAN: ARMIDA MTZ MD JOB: [id number] CLINIC PROGRESS NOTE DATE OF VISIT: 09/17/2005 [...] up with his psychiatrist Dr. Kevin Hanson DRL:[id number] C: 09/17/05 20:32 DOCUMENT: [id number] documented in this encounter Plan of Treatment Not on filedocumented as of this encounter Visit Diagnoses Not on filedocumented in this encounter Care Teams Learning Solutions Specialist Relationship Specialty Start Date End Date Antonio Jerez MD PCP - General 07/25/10 12/22/10 [address] [facility] [place] [address] documented as of this encounter
--- OUTSIDE RECORDS SUMMARY | 2022-02-14 17:15 | XMS_ITS | Encounter Summary ---
:1970 Author Organization [employer] Address [address], [place] [address] Care Team Providers Name Role Phone Antonio Jerez MD Primary Care Provider Encounter Details Date Type Department Care Team Description 06/09/2008 Wealth Management Manager [place] [address] [facility] [address] [phone] (Wo rk) Social History Tobacco Use Types [...] 1057 Note Time: 06/09/08 0001 Status: Signed Mgmt Specialist: Noemy Meade MD (Physician) Pt called content production specialist this AM at 5:36 AM wanting to [...] on Tue which he agreed to do. S TENDER LONG GOODS documented in this encounter Plan of Treatment Not on filedocumented as of this encounter Visit Diagnoses Not on filedocumented in this encounter Care Teams National Facilities Manager Relationship Specialty Start Date End Date Antonio Jerez MD PCP - General 07/25/10 12/22/[address] [place] [address] documented as of this encounter
--- OUTSIDE RECORDS SUMMARY | 2022-02-14 17:15 | XMS_ITS | Encounter Summary ---
:1970 Author Organization [facility] Address [address], [place] [address] Care Team Providers Name Role Phone Antonio Jerez MD Primary Care Provider Encounter Details Date Type Department Care Team Description 06/13/2008 Electromechanical Technician Only CONVERSION CONVERSION Vane Zarate MD [address] [place], [place] [address] (Wo rk) Social History [...] 1104 Note Time: 06/13/08 0001 Status: Signed Pool Lifeguard: Vane Zarate MD (Physician) Addendum: Patient's national accounts sales, Radha, accompanied him and understood all recommendations and safety related planning. A MAKER documented in this encounter Plan of Treatment Not on filedocumented as of this encounter Visit Diagnoses Not on filedocumented in this encounter Care Teams Senior Electronics Technician Relationship Specialty Start Date End Date Antonio Jerez MD PCP - General 07/25/10 12/22/10 [address] [place] [address] documented as of this encounter
--- OUTSIDE RECORDS SUMMARY | 2022-02-14 17:15 | XMS_ITS | Encounter Summary ---
:1970 Author Organization [facility] Address [address] [place] [address] Care Team Providers Name Role Phone Antonio Jerez MD Primary Care Provider Encounter Details Date Type Department Care Team Description 06/24/2008 Office Visit [facility] Antonio Jerez MD 14[address] [facility] . [address] [facility] [place] [address] [place] [address] (Wo rk) Social History Tobacco Use Types Packs/Day Years Used Date Smoking Tobacco: Never Assessed Sex Assigned at Date Recorded Not on file documented as of this encounter Plan of Treatment Not on filedocumented as of this encounter Visit Diagnoses Not on filedocumented in this encounter Care Teams Porcelain Enamel Laborer Relationship Specialty Start Date End Date Antonio Jerez MD PCP - General 07/25/10 12/22/10 [address] [facility] [place] [address] documented as of this encounter
--- OUTSIDE RECORDS SUMMARY | 2022-02-14 17:15 | XMS_ITS | Encounter Summary ---
:1970 [facility] Address [address] [address] Care Team Providers Name Role Phone Antonio Jerez MD Primary Care Provider Encounter Details Date Type Department Care Team Description 02/24/2007 Lna Only CONVERSION Kya Hewitt RN Social History [...] 2249 Note Time: 02/24/07 0001 Status: Signed Apparatus Repair Mechanic: Niko Barrios prior auth for [facility] approved #[id number] for as long as pt stays on plan-pharmacy called OR POLICE LIEUTENANT documented in this encounter Plan of Treatment Not on filedocumented as of this encounter Visit Diagnoses Not on filedocumented in this encounter Care Teams Unit Receptionist Relationship Specialty Start Date End Date Antonio Jerez MD PCP - General 07/25/10 12/22/10 [address] [facility] [place] [address] documented as of this encounter
--- OUTSIDE RECORDS SUMMARY | 2022-02-14 17:15 | XMS_ITS | Encounter Summary ---
:1970 Author Organization [facility] Address [address] [address] Care Team Providers Name Role Phone Antonio Jerez MD Primary Care Provider Encounter Details Date Type Department Care Team Description 07/13/2009 Office Visit [facility] [place] [address] [place] [address] Social History Tobacco Use Types [...] 12:01 AM CDT NAME: SHARLENE VARNER MR#: [id number] ACCT: [id number] VISIT: [id number] DICTATING CLINICIAN: HAILEE VILLARREAL MD CONFIRM #: [id number] LOC: 520 CLINIC PROGRESS NOTE DATE OF VISIT: 07/13/2009 SUBJECTIVE: This 39-year-old male comes in with a few concerns. He has a history of bipolar and has been seen by a psychiatrist in the past. His primary psychiatrist is Dr. Vane Woo, currently does not work at [facility], and he has continued to see her [...] Xanax at night to avoid taking Benadryl. [id number] C: 07/13/09 10:14 CONFIRM #: [id number] documented in this encounter Plan of Treatment Not on filedocumented as of this encounter Visit Diagnoses Not on filedocumented in this encounter Care Teams Time Study Technician Relationship Specialty Start Date End Date Antonio Jerez MD PCP - General 07/25/10 12/22/10 [facility] [place] [address] documented as of this encounter
--- OUTSIDE RECORDS SUMMARY | 2022-02-14 17:15 | XMS_ITS | Encounter Summary ---
:1970 Author Organization [facility] Address [address] [address] Care Team Providers Name Role Phone Antonio Jerez MD Primary Care Provider Encounter Details Date Type Department Care Team Description 03/17/2009 PN Conversion Only [place] CONVERSION Antonio Jerez, [address] [facility] [place] [address] [address] [facility] [place] [address] (Wo rk) Social History Tobacco Use Types Packs/Day Years Used Date Smoking Tobacco: Never Assessed Sex Assigned at Date Recorded Not on file documented as of this encounter Plan of Treatment Not on filedocumented as of this encounter Procedures Procedure Name Priority Date/Time Associated Comments Diagnosis GLUCOSE Routine 03/17/2009 1:20 PM Results f or this TENNIS RACKET REPAIRER procedure are i n the results section. THYROID STIMULATING Routine 03/17/2009 1:20 PM Re sults for this HORMONE TENNIS RACKET REPAIRER procedure are i n the results section. documented in this encounter Results THYROID STIMULATING HORMONE (03/17/2009 1:20 PM TENNIS RACKET REPAIRER) athologist Signature Thyroid 1.53 0.20 - HP CONVERSION Stimulating 4.50 Hormone uIU/mL Specimen (Source) Anatomical Collection Method Collection Time Re ceived Time Location / / Volume Laterality 03/17/2009 1:20 PM TENNIS RACKET REPAIRER Antonio Jerez MD LAB_1 Performing Organization Address City/State/ZIP Code Phon e Number HP CONVERSION (ABNORMAL) GLUCOSE (03/17/2009 1:20 PM TENNIS RACKET REPAIRER) P athologist Signature Lab Glucose 119 (H) 60 - 100 HP CONVERSION mg/dL Specimen (Source) Anatomical Collection Method Collection Time Re ceived Time Location / / Volume Laterality 03/17/2009 1:20 PM TENNIS RACKET REPAIRER Antonio Jerez MD LAB_1 Performing Organization Address City/State/ZIP Code Phon e Number HP CONVERSION documented in this encounter Visit Diagnoses Not on filedocumented in this encounter Care Teams Label Fuser Tender Relationship Specialty Start Date End Date Antonio Jerez MD PCP - General 07/25/10 12/22/[address] [place] [address] [place] [address] documented as of this encounter
--- OUTSIDE RECORDS SUMMARY | 2022-02-14 17:15 | XMS_ITS | Encounter Summary ---
:1970 Author Organization [facility] Address [address] [address] Care Team Providers Name Role Phone Antonio Jerez MD Primary Care Provider Encounter Details Date Type Department Care Team Description 12/01/2009 Systems Administration Analyst Only CONVERSION CONVERSION Ida Woodall MD [address] [place] [address] Social History Tobacco Use Types Packs/Day Years Used Date Smoking Tobacco: Never Assessed Sex Assigned at Date Recorded Not on file documented as of this encounter Progress Notes Ercih Woodall MD - 12/01/2009 12:01 AM CDT Progress Notes signed by Erich Woodall MD at 12/01/09 1531 Author: Erich Woodall MD Service: (none) Author Type: Physician Filed: 08/16/10 0023 Note Time: 12/01/09 0001 Status: Signed Field Crop Grower: Erich Woodall MD (Physician) HOSPITAL DISCHARGE SUMMARY Patient Name: Timur Krishnamurthy Date of : 1970 Age: 39 y.o. Primary Physician: Antonio Jerez Admission Date: 11/29/2009 Discharge Date: 11/30/2009 He will be discharged from [facility] to home. 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 He was discharged [...] on filedocumented in this encounter Care Teams Tray Worker Relationship Specialty Start Date End Date Antonio Jerez MD PCP - General 07/25/10 12/22/10 [address] [facility] [place] [address] documented as of this encounter
--- OUTSIDE RECORDS SUMMARY | 2022-02-14 17:15 | XMS_ITS | Encounter Summary ---
:1970 Author Organization [facility] Address [address] [address] Care Team Providers Name Role Phone Antonio Jerez MD Primary Care Provider Encounter Details Date Type Department Care Team Description 07/03/2008 Tufter Operator Only CONVERSION CONVERSION Vane Zarate MD [address] [place], [place] [address] (Wo rk) Social History [...] 1137 Note Time: 07/03/08 0001 Status: Signed Job Checker: Vane Zarate MD (Physician) Please accept this note as documentation that I saw Mr. Krishnamurthy today and he he appears to be restored to a euthymic state and also appears safe to drive. Thank you very much. documented in this encounter Plan of Treatment Not on filedocumented as of this encounter Visit Diagnoses Not on filedocumented in this encounter Care Teams Naturopathic Doctor Relationship Specialty Start Date End Date Antonio Jerez MD PCP - General 07/25/10 12/22/10 [address] [place] [id number] documented as of this encounter
--- OUTSIDE RECORDS SUMMARY | 2022-02-14 17:15 | XMS_ITS | Encounter Summary ---
:1970 Author Organization [facility] Address [address] [address] Care Team Providers Name Role Phone Antonio Jerez MD Primary Care Provider Encounter Details Date Type Department Care Team Description 08/04/2006 PN Conversion Only Kevin Blackburn, [address] [place] [address] [facility] [address] [place] [address] Social [...] (ABNORMAL) ALT (SGPT) (08/04/2006 8:30 AM CDT) [facility] gist Method Time [...] CONVERSION Valproic Acid range Date Last Dose [id number] No normal HP CONVERSION Valproic Acid range [...] filedocumented in this encounter Care Teams Welder Metal Fab Relationship Specialty Start Date End Date Antonio Jerez MD PCP - General 07/25/10 12/22/10 [facility]5 [facility] [place] [address] documented as of this encounter
--- OUTSIDE RECORDS SUMMARY | 2022-02-14 17:15 | XMS_ITS | Encounter Summary ---
:1970 Author Organization [facility] Address [address] [place] [address] Care Team Providers Name Role Phone Michel Jerez MD Primary Care Provider Encounter Details Date Type Department Care Team Description 10/13/2005 Office Visit [facility] Michel Jerez MD [address] [facility] . [address] [place] [address] [place] [address] [phone] (Wo rk) Social History Tobacco Use Types [...] 1249 Note Time: 10/13/05 0001 Status: Signed Revising Clerk: Michel Jerez MD (Physician) NAME: SHARLENE VARNER MR: [id number] ACCT: [id number] VISIT: [id number] DICTATING CLINICIAN: MICHEL JEREZ MD JOB: [id number] CLINIC PROGRESS NOTE DATE OF VISIT: 10/13/2005 [...] them also to instruct him on diet. [id number] C: 10/14/05 13:15 DOCUMENT: [id number] documented in this encounter Plan of Treatment Not on filedocumented as of this encounter Visit Diagnoses Not on filedocumented in this encounter Care Teams Pier Hand Relationship Specialty Start Date End Date Michel Jerez MD PCP - General 07/25/10 12/22/10 [address] [facility] [place] [address] documented as of this encounter
--- OUTSIDE RECORDS SUMMARY | 2022-02-14 17:16 | XMS_ITS | Encounter Summary ---
:1970 Author [facility] Address [address], [place] [address] Care Team Providers Name Role Phone Antonio Jerez MD Primary Care Provider Encounter Details Date Type Department Care Team Description 03/12/2002 PN Conversion Only RESTORATION CONVERSION Kvng Jerez MD [address] [place], [place] [address] (Wo rk) Social History Tobacco Use Types Packs/Day Years Used Date Smoking Tobacco: Never Assessed Sex Assigned at Date Recorded Not on file documented as of this encounter Plan of Treatment Not on filedocumented as of this encounter Visit Diagnoses Not on filedocumented in this encounter Care Teams Mapping Engineer Relationship Specialty Start Date End Date Antonio Jerez MD PCP - General 07/25/10 12/22/10 [address] [place] [address] documented as of this encounter
--- OUTSIDE RECORDS SUMMARY | 2022-02-14 17:16 | XMS_ITS | Encounter Summary ---
:1970 Author Organization [employer] [facility] Address [address] [place] [address] Care Team Providers Name Role Phone Antonio Jerez MD Primary Care Provider Encounter Details Date Type Department Care Team Description 04/03/2003 PN Conversion Only CIRCLE CONVERSION Antonio Jerez, [address] [facility] [place] [address] 14[address] [facility] [place] [address] (Wo rk) Social History Tobacco Use Types Packs/Day Years Used Date Smoking Tobacco: Never Assessed Sex Assigned at Date Recorded Not on file documented as of this encounter Plan of Treatment Not on filedocumented as of this encounter Procedures Procedure Name Priority Date/Time Associated Comments Diagnosis DIFFERENTIAL RULE Routine 04/03/2003 1:55 PM Resu lts for this MANUAL REGISTERED PHLEBOTOMIST PART TIME procedure are i n the results section. COMPLETE BLOOD Routine 04/03/2003 1:55 PM Results for this COUNT-W/DIFF REGISTERED PHLEBOTOMIST PART TIME procedure are i n the results section. VALPROIC ACID Routine 04/03/2003 1:55 PM Results for this (DEPAKENE) REGISTERED PHLEBOTOMIST PART TIME procedure are i n the results section. ALT (SGPT) Routine 04/03/2003 1:55 PM Results f or this REGISTERED PHLEBOTOMIST PART TIME procedure are i n the results section. AST Routine 04/03/2003 1:55 PM Results f or this REGISTERED PHLEBOTOMIST PART TIME procedure are i n the results section. documented in this encounter Results Complete Blood Count-W/Diff (04/03/2003 1:55 PM REGISTERED PHLEBOTOMIST PART TIME) [facility] gist Method Time Signature White Blood Cell [...] - HP CONVERSION Hemoglobin Conc 36.5 gm/dL [place] RDW 11.6 11.0 - HP CONVERSION 15.0 % Platelet Count 181 140 - 450 HP CONVERSION k/cmm Differential Manl Dif No normal HP CONVERSION Verify range Specimen (Source) Anatomical Collection Method Collection Time Re ceived Time Location / / Volume Laterality 04/03/2003 1:55 PM REGISTERED PHLEBOTOMIST PART TIME Antonio Jerez MD LAB_1 Performing Organization Address City/[facility]/ZIP Code Phon e Number HP CONVERSION (ABNORMAL) ALT (SGPT) (04/03/2003 1:55 PM REGISTERED PHLEBOTOMIST PART TIME) [facility] [employer] Method Time Signature Alanine 82 (H) 0 - 65 HP CONVERSION Aminotransferase U/L Specimen (Source) Anatomical Collection Method Collection Time Re ceived Time Location / / Volume Laterality 04/03/2003 1:55 PM REGISTERED PHLEBOTOMIST PART TIME Antonio Jerez MD LAB_1 Performing Organization Address City/[facility]/ZIP Code Phon e Number HP CONVERSION (ABNORMAL) AST (04/03/2003 1:55 PM REGISTERED PHLEBOTOMIST PART TIME) [facility] [employer] Method Time Signature Aspartate 70 (H) 0 - 45 HP CONVERSION Aminotransferase U/L Specimen (Source) Anatomical Collection Method Collection Time Re ceived Time Location / / Volume Laterality 04/03/2003 1:55 PM REGISTERED PHLEBOTOMIST PART TIME Antonio Jerez MD LAB_1 Performing Organization Address City/State/ZIP Code Phon e Number HP CONVERSION (ABNORMAL) Valproic Acid (Depakene) (04/03/2003 1:55 PM REGISTERED PHLEBOTOMIST PART TIME) Analysis Performed At [facility] Time Signature Time Last Dose 2,200 No normal HP CONVERSION Valproic Acid range Date Last Dose [id number] No normal HP CONVERSION Valproic Acid range Valproic 157 (H) 50 - 100 HP CONVERSION Acid/Depakene ug/mL (Valp) Specimen (Source) Anatomical Collection Method Collection Time Re ceived Time Location / / Volume Laterality 04/03/2003 1:55 PM REGISTERED PHLEBOTOMIST PART TIME Antonio Jerez MD LAB_1 Performing Organization Address City/[facility] Code Phon e Number HP CONVERSION (ABNORMAL) Differential Rule Manual (04/03/2003 1:55 PM REGISTERED PHLEBOTOMIST PART TIME) [facility] gist Method Time Signature Neutrophils 36 (L) [...] / / Volume Laterality 04/03/2003 1:55 PM REGISTERED PHLEBOTOMIST PART TIME Antonio Jerez MD LAB_1 Performing Organization Address City/[facility] Phon e Number HP CONVERSION documented in this encounter Visit Diagnoses Not on filedocumented in this encounter Care Teams Wholesale And Retail Merchant Relationship Specialty Start Date End Date Antonio Jerez MD PCP - General 07/25/10 12/22/10 [address] [place] [address] documented as of this encounter
--- OUTSIDE RECORDS SUMMARY | 2022-02-14 17:16 | XMS_ITS | Encounter Summary ---
:1970 Author Organization [facility] Address [address] [place] [address] Care Team Providers Name Role Phone Antonio Jerez MD Primary Care Provider Encounter Details Date Type Department Care Team Description 07/10/2002 PN Conversion Only DENOMINATIONAL CONVERSION Kvng Jerez MD [address] [place], [place] [address] (Wo rk) Social History Tobacco Use Types Packs/Day Years Used Date Smoking Tobacco: Never Assessed Sex Assigned at Date Recorded Not on file documented as of this encounter Plan of Treatment Not on filedocumented as of this encounter Procedures Procedure Name Priority Date/Time Associated Diagnosis Comme nts ALT (SGPT) Routine 07/10/2002 2:10 PM Results f or this SUPERVISOR THROWING DEPARTMENT procedure are i n the results section . AST Routine 07/10/2002 2:10 PM Results f or this SUPERVISOR THROWING DEPARTMENT procedure are i n the results section . documented in this encounter Results ALT (SGPT) (07/10/2002 2:10 PM SUPERVISOR THROWING DEPARTMENT) [facility] Method Time Signature Alanine 58 0 - 65 HP CONVERSION Aminotransferase U/L Specimen (Source) Anatomical Collection Method Collection Time Re ceived Time Location / / Volume Laterality 07/10/2002 2:10 PM SUPERVISOR THROWING DEPARTMENT Antonio Jerez MD LAB_1 Performing Organization Address City/State/ZIP Code Phon e Number HP CONVERSION AST (07/10/2002 2:10 PM SUPERVISOR THROWING DEPARTMENT) [facility] Method Time Signature Aspartate 36 0 - 45 HP CONVERSION Aminotransferase U/L Specimen (Source) Anatomical Collection Method Collection Time Re ceived Time Location / / Volume Laterality 07/10/2002 2:10 PM SUPERVISOR THROWING DEPARTMENT Antonio Jerez MD LAB_1 Performing Organization Address City/State/ZIP Code Phon e Number HP CONVERSION documented in this encounter Visit Diagnoses Not on filedocumented in this encounter Care Teams Apple Picking Supervisor Relationship Specialty Start Date End Date Antonio Jerez MD PCP - General 07/25/10 12/22/[address] [place] [address] documented as of this encounter
--- OUTSIDE RECORDS SUMMARY | 2022-02-14 17:16 | XMS_ITS | Encounter Summary ---
:1970 Author Organization [facility] Address [address] [address] Care Team Providers Name Role Phone Antonio Jerez MD Primary Care Provider Encounter Details Date Type Department Care Team Description 03/20/2003 PN Conversion Only [place] CONVERSION [address] [place] [address] Social History Tobacco Use Types Packs/Day Years Used Date Smoking Tobacco: Never Assessed Sex Assigned at Date Recorded Not on file documented as of this encounter Plan of Treatment Not on filedocumented as of this encounter Visit Diagnoses Not on filedocumented in this encounter Care Teams Senior Internet Sales Consultant Relationship Specialty Start Date End Date Antonio Jerez MD PCP - General 07/25/10 12/22/10 [address] [place] [address] documented as of this encounter
--- OUTSIDE RECORDS SUMMARY | 2022-02-14 17:16 | XMS_ITS | Encounter Summary ---
:1970 Author Organization [employer] Address [address], [place] [address] Care Team Providers Name Role Phone Antonio Jerez MD Primary Care Provider Encounter Details Date Type Department Care Team Description 04/19/2000 PN Conversion Only [place] [address] [place], [place] [address] Social History Tobacco Use Types Packs/Day Years Used Date Smoking Tobacco: Never Assessed Sex Assigned at Date Recorded Not on file documented as of this encounter Plan of Treatment Not on filedocumented as of this encounter Visit Diagnoses Not on filedocumented in this encounter Care Teams Multigraph Operator Relationship Specialty Start Date End Date Antonio Jerez MD PCP - General 07/25/10 12/22/10 [address] [place] [address] documented as of this encounter
--- OUTSIDE RECORDS SUMMARY | 2022-02-14 17:16 | XMS_ITS | Encounter Summary ---
:1970 Author Organization [facility] Address [address] [address] Care Team Providers Name Role Phone Antonio Jerez MD Primary Care Provider Encounter Details Date Type Department Care Team Description 07/17/2003 Syrup Filterer Only CONVERSION CONVERSION Dave Aquino MBBS [address] [facility] [address] (Wo rk) Social History Tobacco [...] 193 Note Time: 07/17/03 0001 Status: Signed Visual Journalist: REINA Olivia (Resource) VPA 119 from 07/03/03. No action needed at current time. TRO MECHANICAL SOLAR TECHNICIAN documented in this encounter Plan of Treatment Not on filedocumented as of this encounter Visit Diagnoses Not on filedocumented in this encounter Care Teams Acoustical Engineer Relationship Specialty Start Date End Date Antonio Jerez MD PCP - General 07/25/10 12/22/10 [address] [place] [address] documented as of this encounter
--- OUTSIDE RECORDS SUMMARY | 2022-02-14 17:16 | XMS_ITS | Encounter Summary ---
:1970 Author Organization [facility] Address [address] [address] Care Team Providers Name Role Phone Antonio Jerez MD Primary Care Provider Encounter Details Date Type Department Care Team Description 12/18/2004 PN Conversion Only [place] CONVERSIO Kevin Jordan, [address] [place] [address] [facility] [address] [place] [address] Social History Tobacco Use Types [...] on filedocumented in this encounter Care Teams Sludge Filtration Operator Relationship Specialty Start Date End Date Antonio Jerez MD PCP - General 07/25/10 12/22/10 [address] [place] [address] documented as of this encounter
--- OUTSIDE RECORDS SUMMARY | 2022-02-14 17:16 | XMS_ITS | Encounter Summary ---
:1970 Author Organization [facility] Address [address], [place] [address] Care Team Providers Name Role Phone Antonio Jerez MD Primary Care Provider Encounter Details Date Type Department Care Team Description 07/31/2003 PN Conversion Only CHARLES CONVERSKevin Mcneill, [address] [place] [address] [facility] [address] [place] [address] Social History Tobacco Use Types [...] CONVERSION Valproic Acid range Date Last Dose [id number] No normal HP CONVERSION Valproic Acid range [...] filedocumented in this encounter Care Teams Care Manager Cna Relationship Specialty Start Date End Date Antonio Jerez MD PCP - General 07/25/10 12/22/10 14[address] [facility] [place] [address] documented as of this encounter
--- OUTSIDE RECORDS SUMMARY | 2022-02-14 17:16 | XMS_ITS | Encounter Summary ---
:1970 Author Organization [facility] Address [address] [place] [address] Care Team Providers Name Role Phone Antonio Jerez MD Primary Care Provider Encounter Details Date Type Department Care Team Description 08/17/2004 [facility] Visit [facility] Olga Childs PA-C [address] [facility] . [address] [place] [address] [place] [address] [phone] (Wo rk) Social History Tobacco Use Types Packs/Day Years Used Date Smoking Tobacco: Never Assessed Sex Assigned at Date Recorded Not on file documented as of this encounter Progress Notes Olga Peterson V - 08/17/2004 12:01 AM CDT Progress Notes signed by Olga Vicente PA-C at 09/13/04 0841 Author: Olga Vicente PA-C Service: (none) Author Type: Physician Engraver Seals Filed: 08/14/10 0431 Note Time: 08/17/04 0001 Status: Signed Silver Solution Mixer: Olga Vicente PA-C (Physician Engraver Seals) NAME: SHARLENE VARNER MR: [id number] ACCT: [id number] VISIT: [id number] DICTATING CLINICIAN: KEREN CAMARGO JOB: [id number] CLINIC PROGRESS NOTE DATE OF VISIT: 08/17/2004 SUBJECTIVE: : 1970. Vyqkcd-ncsw-gzsz-old male comes in concerned about sinus congestion [...] Obese. ASSESSMENT: Cough, bronchitis, sinusitis. PLAN: Mucinex fwpi-ldt-sqntkqf twice daily for the next 10 days. [...] do not improve would recommend chest x-ray. [id number] C: 08/17/04 13:16 DOCUMENT: [id number] documented in this encounter Plan of Treatment Not on filedocumented as of this encounter Visit Diagnoses Not on filedocumented in this encounter Care Teams Cottonseed Meat Presser Relationship Specialty Start Date End Date Antonio Jerez MD PCP - General 07/25/10 12/22/10 2008 [place] [address] documented as of this encounter
--- OUTSIDE RECORDS SUMMARY | 2022-02-14 17:16 | XMS_ITS | Encounter Summary ---
:1970 Author Organization [employer] Address [address], [place] [address] Care Team Providers Name Role Phone Antonio Jerez MD Primary Care Provider Encounter Details Date Type Department Care Team Description 05/26/2001 PN Conversion [place] [address] [place], [place] [address] Social History Tobacco Use Types Packs/Day Years Used Date Smoking Tobacco: Never Assessed Sex Assigned at Date Recorded Not on file documented as of this encounter Plan of Treatment Not on filedocumented as of this encounter Visit Diagnoses Not on filedocumented in this encounter Care Teams Automotive Service Consultant Relationship Specialty Start Date End Date Antonio Jerez MD PCP - General 07/25/10 12/22/10 [address] [place] [address] documented as of this encounter
--- OUTSIDE RECORDS SUMMARY | 2022-02-14 17:16 | XMS_ITS | Encounter Summary ---
:1970 Author Organization [employer] Address [address], [place] [address] Care Team Providers Name Role Phone Antonio Jerez MD Primary Care Provider Encounter Details Date Type Department Care Team Description 08/25/2001 PN Conversion Only [place] [address] [place], [place] [address] Social History Tobacco Use Types Packs/Day Years Used Date Smoking Tobacco: Never Assessed Sex Assigned at Date Recorded Not on file documented as of this encounter Plan of Treatment Not on filedocumented as of this encounter Visit Diagnoses Not on filedocumented in this encounter Care Teams Nanny/Household Manager Relationship Specialty Start Date End Date Antonio Jerez MD PCP - General 07/25/10 12/22/10 [address] [place] [address] documented as of this encounter
--- OUTSIDE RECORDS SUMMARY | 2022-02-14 17:16 | XMS_ITS | Encounter Summary ---
:1970 Author Organization [facility] Address [address], [place] [address] Care Team Providers Name Role Phone Antonio Jerez MD Primary Care Provider Encounter Details Date Type Department Care Team Description 08/17/2004 PN Conversion Only CAPITAN GRANDE BAND CONVERSION [address] [place] [address] Social History Tobacco Use Types Packs/Day Years [...] 0000 Note Time: 11/15/05 0001 Status: Signed Lion Tamer: Екатерина Goetz RN (Registered Nurse) NAME: NATALI KRISHNAMURTHY MR: [id number] ACCT: DICTATING CLINICIAN: ЕКАТЕРИНА GOETZ RN JOB: [id number] [facility] ONLINE PHONE CALL DATE: 11/15/05. [...] not want to restart any other medication. :[id number] C: 11/16/05 11:54 DOCUMENT: [id number] Ashley Gaines RN - 10/07/2005 12:01 AM CDT Phone Note signed by Ashley Denise RN at 03/01/06 1604 Author: Ashley Denise RN Service: (none) Author Type: Registered Nurse Filed: 08/17/04 0000 Note Time: 10/07/05 0001 Status: Signed Lion Tamer: Ashley Denise RN (Registered Nurse) NAME: SHARLENE KRISHNAMURTHY MR: ACCT: DICTATING CLINICIAN: Bacilio [facility] JOB: [id number] MENTAL HEALTH ONLINE PHONE CALL DATE: 10/07/05. This is a patient of Dr. Hanson. Patient called in stating he is taking the Zyprexa 5 mg b.i.d. double what he and Dr. Hanson had talked about and was feeling better with this. Dr. Hanson informed. [facility]:[id number] C: 10/07/05 20:08 DOCUMENT: [id number] MACHINE OPERATOR Екатерина Goetz RN - 10/05/2005 12:01 AM CDT Phone Note signed by Екатерина Goetz RN at 10/08/05 1416 Author: Екатерина Goetz RN Service: (none) Author Type: Registered Nurse Filed: 08/17/04 0000 Note Time: 10/05/05 0001 Status: Signed Lion Tamer: Екатерина Goetz RN (Registered Nurse) NAME: NATALI KRISHNAMURTHY MR: [id number] ACCT: DICTATING CLINICIAN: ЕКАТЕРИНА GOETZ RN JOB: [id number] [facility] ONLINE PHONE CALL DATE: . SUBJECTIVE AND [...] a follow up appointment scheduled for 10/29. MC:[id number] C: 10/05/05 13:39 DOCUMENT: [id number] Екатерина Goetz RN - 09/30/2005 12:01 AM CDT Phone Note signed by Екатерина Goetz RN at 10/08/05 1413 Author: Екатерина Goetz RN Service: (none) Author Type: Registered Nurse Filed: 08/17/04 0000 Note Time: 09/30/05 0001 Status: Signed Lion Tamer: Екатерина Goetz RN (Registered Nurse) NAME: NATALI LINDA MR: [id number] ACCT: DICTATING CLINICIAN: ЕКАТЕРИНА GOETZ RN JOB: [id number] [facility] ONLINE PHONE CALL DATE: 09/30/05. . SUBJECTIVE/OBJECTIVE: The patient phoned in stating that he had decreased to 5 mg of Zyprexa at night. He states that he has been quite calm lately. He has been eliminating caffeine from his diet. He states he is attending the day treatment program at [facility] which he really likes. He reports [...] has a followup appointment scheduled for 10/29. MC:[id number] C: 09/30/05 21:47 DOCUMENT: [id number] Farida Malin APRN, CNS - 09/24/2005 12:01 AM CDT Phone Note signed by SHERIF Bell at 09/27/05 0829 Author: SHERIF Bell Service: (none) Author Type: Clinical Nurse Specialist Filed: 08/17/04 0000 Note Time: 09/24/05 0001 Status: Signed Lion Tamer: SHERIF Bell (Clinical Nurse Specialist) NAME: NATALI KRISHNAMURTHY MR: [id number] ACCT: DICTATING CLINICIAN: SHERIF COELHO JOB: [id number] M[facility] ONLINE PHONE CALL DATE: : [...] I did leave Natali a message at [phone] as directed by the patient regarding this medication change. He is to call with any questions or concerns. He is to follow up with Dr. Hanson as directed. KJL:[id number] C: 09/24/05 11:46 DOCUMENT: [id number] Екатерина Goetz RN - 09/17/2005 12:01 AM CDT Phone Note signed by Екатерина Goetz RN at 10/08/05 1403 Author: Екатерина Goetz RN Service: (none) Author Type: Registered Nurse Filed: 08/17/04 0000 Note Time: 09/17/05 0001 Status: Signed Lion Tamer: Екатерина Goetz RN (Registered Nurse) NAME: NATALI PEARL MR: [id number] ACCT: DICTATING CLINICIAN: ЕКАТЕРИНА GOETZ RN JOB: [id number] M[facility] ONLINE PHONE CALL DATE: 09/17/05. . SUBJECTIVE/OBJECTIVE: The patient phoned from [facility] where he was seeing Dr. Mckinney [...] to get further directions from Dr. Hanson. MC:[id number] C: 09/20/05 11:29 DOCUMENT: [id number] Екатерина Goetz RN - 09/02/2005 12:01 AM CDT Phone Note signed by Екатерина Goetz RN at 09/06/05 1350 Author: Екатерина Goetz RN Service: (none) Author Type: Registered Nurse Filed: 08/17/04 0000 Note Time: 09/02/05 0001 Status: Signed Lion Tamer: Екатерина Goezt RN (Registered Nurse) NAME: SHARLENE KRISHNAMURTHY MR: [id number] ACCT: DICTATING CLINICIAN: ЕКАТЕРИНА GOETZ RN JOB: [id number] M[facility] ONLINE PHONE CALL DATE: 09/02/05. [...] This information was given to Dr. Hanson. MC:[id number] C: 09/03/05 15:33 DOCUMENT: [id number] Farida Malin APRN, CNS - 08/31/2005 12:01 AM CDT Phone Note signed by SHERIF Bell at 09/08/05 0811 Author: SHERIF Bell Service: (none) Author Type: Clinical Nurse Specialist Filed: 08/17/04 0000 Note Time: 08/31/05 0001 Status: Signed Lion Tamer: SHERIF Bell (Clinical Nurse Specialist) NAME: AMOL KRISHNAMURTHY MR: [id number] ACCT: DICTATING CLINICIAN: SHERIF COELHO JOB: [id number] [facility] ONLINE PHONE CALL DATE: 08/31/2005. I will [...] back today and has met with his outsole caser. Both are feeling that he is having [...] changes. Patient is agreeable with that plan. KJL:[id number] C: 09/01/05 17:27 DOCUMENT: [id number] Farida Malin APRN, CNS - 08/25/2005 12:01 AM CDT Phone Note signed by SHERIF Bell at 08/27/05 1103 Author: SHERIF Bell Service: (none) Author Type: Clinical Nurse Specialist Filed: 08/17/04 0000 Note Time: 08/25/05 0001 Status: Signed Lion Tamer: SHERIF Bell (Clinical Nurse Specialist) NAME: SHARLENE KRISHNAMURTHY MR: [id number] ACCT: DICTATING CLINICIAN: SHERIF COELHO JOB: [id number] M[facility]AL [facility] ONLINE PHONE CALL DATE: 08/25/05. [...] he is to follow up as directed. KJL:[id number] C: 08/27/05 07:09 DOCUMENT: [id number] Екатерина Goetz RN - 08/24/2005 12:01 AM CDT Phone Note signed by Екатерина Goetz RN at 09/03/05 0803 Author: Екатерина Goetz RN Service: (none) Author Type: Registered Nurse Filed: 08/17/04 0000 Note Time: 08/24/05 0001 Status: Signed Lion Tamer: Екатерина Goetz RN (Registered Nurse) NAME: SHARLENE KRISHNAMURTHY MR: [id number] ACCT: DICTATING CLINICIAN: ЕКАТЕРИНА GOETZ RN JOB: [id number] [facility] ONLINE PHONE CALL DATE: 08/24/05. [...] get a recommendation from Dr. Hanson tomorrow. MC:[id number] C: 08/25/05 12:23 DOCUMENT: [id number] Екатерина Goetz RN - 08/19/2005 12:01 AM CDT Phone Note signed by Екатерина Goetz RN at 08/24/05 1346 Author: Екатерина Goetz RN Service: (none) Author Type: Registered Nurse Filed: 08/17/04 0000 Note Time: 08/19/05 0001 Status: Signed Lion Tamer: Екатерина Goetz RN (Registered Nurse) NAME: SHARLENE KRISHNAMURTHY MR: [id number] ACCT: DICTATING CLINICIAN: ЕКАТЕРИНА GOETZ RN JOB: [id number] MENTAL HE[facility] ONLINE PHONE CALL DATE: 08/19/05. [...] will be making that as of today. MC:[id number] C: 08/20/05 15:20 DOCUMENT: [id number] documented in this encounter Plan of Treatment Not on filedocumented as of this encounter Visit Diagnoses Not on filedocumented in this encounter Care Teams Shank Pinner Relationship Specialty Start Date End Date Antonio Jerez MD PCP - General 07/25/10 12/22/10 [address] [place] [address] documented as of this encounter
--- OUTSIDE RECORDS SUMMARY | 2022-02-14 17:16 | XMS_ITS | Encounter Summary ---
:1970 Author Organization [employer] Address [address] [address] Care Team Providers Name Role Phone Antonio Jerez MD Primary Care Provider Encounter Details Date Type Department Care Team Description 08/16/2000 PN Conversion [place] [address] [place], [place] [address] Social History Tobacco Use Types Packs/Day Years Used Date Smoking Tobacco: Never Assessed Sex Assigned at Date Recorded Not on file documented as of this encounter Plan of Treatment Not on filedocumented as of this encounter Visit Diagnoses Not on filedocumented in this encounter Care Teams Retail Manager Relationship Specialty Start Date End Date Antonio Jerez MD PCP - General 07/25/10 12/22/10 [address] [place] [address] documented as of this encounter
--- OUTSIDE RECORDS SUMMARY | 2022-02-14 17:16 | XMS_ITS | Encounter Summary ---
:1970 Author Organization [employer] Address [address] [address] Care Team Providers Name Role Phone Antonio Jerez MD Primary Care Provider Encounter Details Date Type Department Care Team Description 07/09/2003 Floor Cleaner Only CONVERSION CONVERSION Delphine Malin i, APRN, CNS [address] [place] [address] (Wo rk) Social History Tobacco [...] 192 Note Time: 07/09/03 0001 Status: Signed Entry Level Account Representative: SHERIF Bell (Clinical Nurse Specialist) Pt call, [...] f/u with Dr. Aquino in two weeks. HER THEATER [employer]S documented in this encounter Plan of Treatment Not on filedocumented as of this encounter Visit Diagnoses Not on filedocumented in this encounter Care Teams Conditioning Yard Supervisor Relationship Specialty Start Date End Date Antonio Jerez MD PCP - General 07/25/10 12/22/10 [address] [facility] [place] [address] documented as of this encounter
--- OUTSIDE RECORDS SUMMARY | 2022-02-14 17:16 | XMS_ITS | Encounter Summary ---
:1970 Author Organization [facility] Address [address] [address] Care Team Providers Name Role Phone Antonio Jerez MD Primary Care Provider Encounter Details Date Type Department Care Team Description 10/18/2002 PN Conversion [place] [address] [place], [place] [address] Social History Tobacco Use [...] (10/18/2002 1:56 PM CDT) Analysis Performed At [facility] Signature Time Last Dose 2,330 No normal HP CONVERSION Valproic Acid range Date Last Dose [id number] No normal HP CONVERSION Valproic Acid range [...] on filedocumented in this encounter Care Teams Legal Researcher Relationship Specialty Start Date End Date Antonio Jerez MD PCP - General 07/25/10 12/22/10 [address] [place] [address] documented as of this encounter
--- OUTSIDE RECORDS SUMMARY | 2022-02-14 17:16 | XMS_ITS | Encounter Summary ---
:1970 Author Organization [facility] Address [address] [address] Care Team Providers Name Role Phone Antonio Jerez MD Primary Care Provider Encounter Details Date Type Department Care Team Description 07/16/2003 PN Conversion Only [place] Lyndsay Perry, [address] [place] [address] [place] [address] (Wo rk) Social History Tobacco Use Types Packs/Day Years Used Date Smoking Tobacco: Never Assessed Sex Assigned at Date Recorded Not on file documented as of this encounter Plan of Treatment Not on filedocumented as of this encounter Procedures Procedure Name Priority Date/Time Associated Diagnosis Comme nts VALPROIC ACID Routine 07/16/2003 9:26 AM Results for this (DEPAKENE) RESIDENTIAL PROGRAM MANAGER procedure are i n the results section. documented in this encounter Results (ABNORMAL) Valproic Acid (Depakene) (07/16/2003 9:26 AM RESIDENTIAL PROGRAM MANAGER) P athologist Signature Valproic 119 (H) 50 - 100 HP CONVERSION Acid/Depakene ug/mL (Valp) Specimen (Source) Anatomical Collection Method Collection Time Re ceived Time Location / / Volume Laterality 07/16/2003 9:26 AM RESIDENTIAL PROGRAM MANAGER [facility] Performing Organization Address City/State/ZIP Code Phon e Number HP CONVERSION documented in this encounter Visit Diagnoses Not on filedocumented in this encounter Care Teams Forming Roll Operator Relationship Specialty Start Date End Date Antonio Jerez MD PCP - General 07/25/10 12/22/10 [address] [place] [address] documented as of this encounter
--- OUTSIDE RECORDS SUMMARY | 2022-02-14 17:16 | XMS_ITS | Encounter Summary ---
:1970 Author Organization [facility] Address [address] [address] Care Team Providers Name Role Phone Antonio Jerez MD Primary Care Provider Encounter Details Date Type Department Care Team Description 07/30/2005 PN Conversion Only Kevin Blackburn, [address] [place] [address] [address] [facility] [address] [place] [address] Social History Tobacco Use Types [...] on filedocumented in this encounter Care Teams Drum Printer Relationship Specialty Start Date End Date Antonio Jerez MD PCP - General 07/25/10 12/22/10 [address] [facility] [place] [address] documented as of this encounter
--- OUTSIDE RECORDS SUMMARY | 2022-02-14 17:16 | XMS_ITS | Encounter Summary ---
:1970 Author Organization [employer] Address [address] [address] Care Team Providers Name Role Phone Antonio Jerez MD Primary Care Provider Encounter Details Date Type Department Care Team Description 02/21/2002 PN Conversion [place] [address] [place], [place] [address] Social History Tobacco Use Types Packs/Day Years Used Date Smoking Tobacco: Never Assessed Sex Assigned at Date Recorded Not on file documented as of this encounter Plan of Treatment Not on filedocumented as of this encounter Visit Diagnoses Not on filedocumented in this encounter Care Teams Car Body Inspector Relationship Specialty Start Date End Date Antonio Jerez MD PCP - General 07/25/10 12/22/10 [address] [place] [address] documented as of this encounter
--- OUTSIDE RECORDS SUMMARY | 2022-02-14 17:16 | XMS_ITS | Encounter Summary ---
:1970 Author Organization [facility] Address [address] [place] [address] Care Team Providers Name Role Phone Michel Daniel MD Primary Care Provider Encounter Details Date Type Department Care Team Description 04/03/2003 PN Conversion Only [facility] Michel Daniel , [facility] MD [address] [facility] . [address] [place] [address] [place] [address] [phone] (Wo rk) Social History Tobacco Use Types Packs/Day Years Used Date Smoking Tobacco: Never Assessed Sex Assigned at Date Recorded Not on file documented as of this encounter Progress Notes Michel Daniel MD - 04/03/2003 12:01 AM CST Progress Notes signed by Michel Daniel MD at 04/03/03 1759 Author: Michel Daniel MD Service: (none) Author Type: Physician Filed: 08/13/10 1730 Note Time: 04/03/03 0001 Status: Signed Vaccine Customer Representative: Michel Daniel MD (Physician) NAME: SHARLENE VARNER MR: [id number] ACCT: [id number] VISIT: [id number] DICTATING CLINICIAN: MICHEL DANIEL MD JOB: [id number] CLINIC PROGRESS NOTE DATE OF VISIT: 04/03/2003 [...] and 100. Rustam continues to work at [employer]. He is working 40 hours a week. [...] me on a p.r.n. basis. TT: CT: [id number] C: 04/03/03 17:34 DOCUMENT: [id number] CULTURAL COMMODITIES GRADER documented in this encounter Plan of Treatment Not on filedocumented as of this encounter Visit Diagnoses Not on filedocumented in this encounter Care Teams Emission Specialist Relationship Specialty Start Date End Date Michel Daniel MD PCP - General 07/25/10 12/22/[address] [place] [address] documented as of this encounter
--- OUTSIDE RECORDS SUMMARY | 2022-02-14 17:16 | XMS_ITS | Encounter Summary ---
:1970 Author Organization [facility] Address [address], [place] [address] Care Team Providers Name Role Phone Antonio Jerez MD Primary Care Provider Encounter Details Date Type Department Care Team Description 12/12/2000 PN Conversion Only ADVENT CONVERSION Kvng Jerez MD [address] [place], [place] [address] (Wo rk) Social History Tobacco Use Types Packs/Day Years Used Date Smoking Tobacco: Never Assessed Sex Assigned at Date Recorded Not on file documented as of this encounter Plan of Treatment Not on filedocumented as of this encounter Visit Diagnoses Not on filedocumented in this encounter Care Teams Radiology Specialist Relationship Specialty Start Date End Date Antonio Jerez MD PCP - General 07/25/10 12/22/10 [address] [place] [address] documented as of this encounter
--- OUTSIDE RECORDS SUMMARY | 2022-02-14 17:16 | XMS_ITS | Encounter Summary ---
:1970 Author Organization [facility] Address [address] [place] [address] Care Team Providers Name Role Phone Michel Daniel MD Primary Care Provider Encounter Details Date Type Department Care Team Description 08/09/2005 Office Visit [facility] Michel Daniel MD [address] [facility] . [address] [place] [address] [place] [address] [phone] (Wo rk) Social History Tobacco Use Types [...] 1130 Note Time: 08/09/05 0001 Status: Signed Gore Maker: Michel Daniel MD (Physician) NAME: SHARLENE VARNER MR: [id number] ACCT: [id number] VISIT: [id number] DICTATING CLINICIAN: MICHEL DANIEL MD JOB: [id number] CLINIC PROGRESS NOTE DATE OF VISIT: 08/09/2005 [...] Return in 4-6 weeks if not improved. AAS:[id number] C: 08/10/05 14:20 DOCUMENT: [id number] documented in this encounter Plan of Treatment Not on filedocumented as of this encounter Visit Diagnoses Not on filedocumented in this encounter Care Teams Officer Captain Relationship Specialty Start Date End Date Michel Daniel MD PCP - General 07/25/10 12/22/[address] [place] [address] documented as of this encounter
--- OUTSIDE RECORDS SUMMARY | 2022-02-14 17:16 | XMS_ITS | Encounter Summary ---
:1970 Author Organization [facility] Address [address], [place] [address] Care Team Providers Name Role Phone Antonio Jerez MD Primary Care Provider Encounter Details Date Type Department Care Team Description 11/30/2000 PN Conversion Only GNOSTICIST CONVERSION Kvng Jerez MD [address] [place], [place] [address] (Wo rk) Social History Tobacco Use Types Packs/Day Years Used Date Smoking Tobacco: Never Assessed Sex Assigned at Date Recorded Not on file documented as of this encounter Plan of Treatment Not on filedocumented as of this encounter Visit Diagnoses Not on filedocumented in this encounter Care Teams Criminal Court Judge Relationship Specialty Start Date End Date Antonio Jerez MD PCP - General 07/25/10 12/22/10 [address] [place] [address] documented as of this encounter
--- OUTSIDE RECORDS SUMMARY | 2022-02-14 17:16 | XMS_ITS | Encounter Summary ---
:1970 Author Organization [facility] Address [address] [place] [address] Care Team Providers Name Role Phone Antonio Jerez MD Primary Care Provider Encounter Details Date Type Department Care Team Description 10/23/2004 Procedure Visit [facility] Armida Mtz MD [address] [facility] . [address] [place] [address] [address] [phone] [place] [address] Social History Tobacco Use Types Packs/Day Years [...] 08/14/10 0549 Note Time: 10/23/042018 Status: Signed Rn First Assistant: Armida Mtz MD (Physician) NAME: SHARLENE VARNER MR: [id number] ACCT: [id number] VISIT: [id number] DICTATING CLINICIAN: ARMIDA MTZ MD JOB: [id number] CLINIC PROGRESS NOTE DATE OF VISIT: 10/23/2004 SUBJECTIVE: : 1970. [facility]: [id number]. The patient is here for skin tags [...] 1. Skin tags. 2. Venereal warts. PLAN: REANNA:[id number] C: 10/24/04 17:27 DOCUMENT: [id number] documented in this encounter Plan of Treatment Not on filedocumented as of this encounter Visit Diagnoses Not on filedocumented in this encounter Care Teams Admissions Gate Attendant Relationship Specialty Start Date End Date Antonio Jerez MD PCP - General 07/25/10 12/22/10 [facility] [place] [address] documented as of this encounter
--- OUTSIDE RECORDS SUMMARY | 2022-02-14 17:16 | XMS_ITS | Encounter Summary ---
:1970 Author Organization [facility] Address [address] [place] [address] Care Team Providers Name Role Phone Michel Daniel MD Primary Care Provider Encounter Details Date Type Department Care Team Description 05/19/2005 Office Visit [facility] Michel Daniel MD [address] [facility] . [address] [place] [address] [place] [address] [phone] (Wo rk) Social History Tobacco Use Types Packs/Day Years Used Date Smoking Tobacco: Never Assessed Sex Assigned at Date Recorded Not on file documented as of this encounter Last Filed Vital Signs Vital Sign Reading Time Taken Comments Blood Pressure 132/84 05/19/2005 1:00 PM BINGO MANAGER Pulse - - Temperature 37.1 ??C (98.8 ??F) 05/19/2005 1:00 PM BINGO MANAGER C: 37 .1 C Respiratory Rate - - Oxygen Saturation - - Inhaled Oxygen Concentration - - Weight 97.1 kg (213 lb 15.7 oz) 05/19/2005 1:00 PM BINGO MANAGER C: 97.1kg Height - - Body Mass Index - - documented in this encounter Progress Notes Michel Daniel MD - 05/19/2005 12:01 AM CST Progress Notes signed by Michel Daniel MD at 05/21/05 0715 Author: Michel Daniel MD Service: (none) Author Type: Physician Filed: 08/14/10 0947 Note Time: 05/19/05 0001 Status: Signed Erp Specialist: Michel Daniel MD (Physician) NAME: SHARLENE VARNER MR: [id number] ACCT: [id number] VISIT: [id number] DICTATING CLINICIAN: MICHEL DANIEL MD JOB: [id number] CLINIC PROGRESS NOTE DATE OF VISIT: 05/19/2005 [...] fluids, recheck p.r.n. 2. Influenza vaccine today. AAS:[id number] C: 05/20/05 09:24 DOCUMENT: [id number] O MANAGER documented in this encounter Plan of Treatment Not on filedocumented as of this encounter Visit Diagnoses Not on filedocumented in this encounter Care Teams Shuttle Inspector Relationship Specialty Start Date End Date Michel Daniel MD PCP - General 07/25/10 12/22/[address] [place] [address] documented as of this encounter
--- OUTSIDE RECORDS SUMMARY | 2022-02-14 17:17 | XMS_ITS | Encounter Summary ---
:1970 Author Organization [employer] Address [address] [address] Care Team Providers Name Role Phone Antonio Jerez MD Primary Care Provider Encounter Details Date Type Department Care Team Description 03/21/2000 PN Conversion [place] [address] [place], [place] [address] Social History Tobacco Use Types Packs/Day Years Used Date Smoking Tobacco: Never Assessed Sex Assigned at Date Recorded Not on file documented as of this encounter Plan of Treatment Not on filedocumented as of this encounter Visit Diagnoses Not on filedocumented in this encounter Care Teams Tire Mechanic Relationship Specialty Start Date End Date Antonio Jerez MD PCP - General 07/25/10 12/22/10 [address] [place] [address] documented as of this encounter
--- OUTSIDE RECORDS SUMMARY | 2022-02-14 17:17 | XMS_ITS | Encounter Summary ---
:1970 Author Organization [employer] Address [address], [place] [address] Care Team Providers Name Role Phone Antonio Jerez MD Primary Care Provider Encounter Details Date Type Department Care Team Description 06/16/1998 PN Conversion Only [place] [address] [place], [place] [address] Social History Tobacco Use Types Packs/Day Years Used Date Smoking Tobacco: Never Assessed Sex Assigned at Date Recorded Not on file documented as of this encounter Plan of Treatment Not on filedocumented as of this encounter Visit Diagnoses Not on filedocumented in this encounter Care Teams Hydrologic Modeler Relationship Specialty Start Date End Date Antonio Jerez MD PCP - General 07/25/10 12/22/10 [address] [place] [address] documented as of this encounter
--- OUTSIDE RECORDS SUMMARY | 2022-02-14 17:17 | XMS_ITS | Encounter Summary ---
:1970 Author Organization [facility] Address [address] [place] [id number] Care Team Providers Name Role Phone Unavailable Primary Care Provider Unavailable Encounter Details Date Type Department Care Team Description 05/25/1987 - 07/22/1988 Hospital Encounter JAINISM CONVERSION Social History Tobacco Use Types Packs/Day Years Used Date Smoking Tobacco: Never Assessed Sex Assigned at Date Recorded Not on file documented as of this encounter Plan of Treatment Not on filedocumented as of this encounter Visit Diagnoses Not on filedocumented in this encounter
--- OUTSIDE RECORDS SUMMARY | 2022-02-14 17:17 | XMS_ITS | Encounter Summary ---
:1970 Author Organization [employer] Address [address], [place] [address] Care Team Providers Name Role Phone Antonio Jerez MD Primary Care Provider Encounter Details Date Type Department Care Team Description 04/10/1999 PN Conversion Only [place] [address] [place], [place] [address] Social History Tobacco Use Types Packs/Day Years Used Date Smoking Tobacco: Never Assessed Sex Assigned at Date Recorded Not on file documented as of this encounter Plan of Treatment Not on filedocumented as of this encounter Visit Diagnoses Not on filedocumented in this encounter Care Teams Route Sales Manager Relationship Specialty Start Date End Date Antonio Jerez MD PCP - General 07/25/10 12/22/10 [address] [place] [address] documented as of this encounter
--- OUTSIDE RECORDS SUMMARY | 2022-02-14 17:17 | XMS_ITS | Encounter Summary ---
:1970 Author Organization [employer] Address [address], [place] [address] Care Team Providers Name Role Phone Antonio Jerez MD Primary Care Provider Encounter Details Date Type Department Care Team Description 09/11/1999 PN Conversion Only [place] [address] [place], [place] [address] Social History Tobacco Use Types Packs/Day Years Used Date Smoking Tobacco: Never Assessed Sex Assigned at Date Recorded Not on file documented as of this encounter Plan of Treatment Not on filedocumented as of this encounter Visit Diagnoses Not on filedocumented in this encounter Care Teams Attending Pathologist Relationship Specialty Start Date End Date Antonio Jerez MD PCP - General 07/25/10 12/22/10 [address] [place] [address] documented as of this encounter
== END 2022-02-10 09:09 | disposition home or self-care (01) ==
LOC: AMB 02-14 16:57
PROVIDERS: PCP Family Medicine; Visit Provider Emergency Medicine Emergency Medical Services
DX: R53.1 Weakness (principal); R50.9 Fever, unspecified
CPT/HCPCS: A0425; A0427

== ENCOUNTER 2022-02-10 09:35 | Emergency (ER) | payer MEDICARE, MEDICAID, SELFPAY ==
[2022-02-10] VITALS (14 sets, daily range): BP systolic 105–142; BP diastolic 64–79; PULSE 78–87; RESP 16–20; TEMP 36.7–37; O2SAT 89–93
--- NOTE | 2022-02-10 09:46 | CRLHL7_ITS ---
For Patients: As a result of the Century Cures Act, medical imaging exams and procedure reports are released immediately into your electronic medical record. You may view this report before your referring provider. If you have questions, please contact your health care provider. INDICATION: Slurred speech COMPARISON: None TECHNIQUE: CT examination of the head was performed as axial sections without intravenous contrast. Images were obtained from the vertex of the skull through the skull base. Please note that all CT scans at this facility use dose modulation, iterative reconstruction, and/or weight-based dosing when appropriate to reduce radiation dose to as low as reasonably achievable. FINDINGS: The brain shows no sign of mass lesion, mass effect, hemorrhage, or edema. The ventricles and sulci are normal in appearance for the patient`s age. The visualized portions of the orbits are normal in appearance. The osseous structures are normal in their appearance with no sign of abnormality in the skull base or calvarium. Minor paranasal sinus mucosal inflammatory changes incidentally noted. IMPRESSION: Normal unenhanced head CT. Minor paranasal sinus mucosal inflammatory disease. Please note that all CT scans at this facility use dose modulation, iterative reconstruction, and/or weight-based dosing when appropriate to reduce radiation dose to as low as reasonably achievable. Dictated by Johnnie Montgomery MD @ 02/10/2022 10:41:15 AM (Electronically Signed)
--- NOTE | 2022-02-10 09:48 | ED_ITS ---
HPI - General Adult General Chief complaint: Altered Mental Status Stated complaint: Possible covid, short of breath Time Seen by Provider: 02/10/22 09:46 History of Present Illness HPI narrative: This 52-year-old male comes in by ambulance because of decreased responsiveness and slurred speech. He appears lethargic and is very difficult to understand due to slurred and slow speech. He does not have any neurologic deficits. Ambulance report normal blood glucose and states that he had a temperature of 100.7?. On arrival here his temperature is normal at 98?. There is a report at his assisted living facility that he was having a cough yesterday. Related Data Home Medications Medication Instructions Recorded Confirmed Risperdal 50 mg IM .[id number] 02/10/22 02/10/22 alprazolam 0.5 mg tablet 0.5 mg PO BID 02/10/22 02/10/22 amlodipine 10 mg tablet 10 mg PO DAILY 02/10/22 02/10/22 aspirin 81 mg tablet,delayed 81 mg PO DAILY 02/10/22 02/10/22 release (Ecotrin Low Strength) buspirone 10 mg tablet 30 mg PO TID 02/10/22 02/10/22 divalproex 500 mg tablet,delayed 1,000 mg PO BID 02/10/22 02/10/22 release empagliflozin 10 mg tablet 10 mg PO DAILY 02/10/22 02/10/22 (Jardiance) famotidine 20 mg tablet 20 mg PO BID 02/10/22 02/10/22 gabapentin 300 mg capsule 900 mg PO TID 02/10/22 02/10/22 insulin aspart U-100 100 unit/mL 10 unit subcut .tid WITH MEALS 02/10/22 02/10/22 (3 mL) subcutaneous pen (Novolog Flexpen U-100 Insulin aspart) insulin degludec 200 unit/mL (3 28 unit subcut QHS 02/10/22 02/10/22 mL) subcutaneous pen (Tresiba FlexTouch U-200 insulin) metformin 1,000 mg tablet 1,000 mg PO BID 02/10/22 02/10/22 metoprolol succinate 50 mg 50 mg PO DAILY 02/10/22 02/10/22 tablet,extended release 24 hr multivitamin (Daily Multi-Vitamin 1 tab PO DAILY 02/10/22 02/10/22 tablet) quetiapine 200 mg tablet 200 mg PO HS 02/10/22 02/10/22 risperidone 3 mg tablet 3 mg PO BID 02/10/22 02/10/22 rosuvastatin 20 mg tablet 20 mg PO HS 02/10/22 02/10/22 trihexyphenidyl 5 mg tablet 5 mg PO BID 02/10/22 02/10/22 Allergies Allergy/AdvReac Type Severity Reaction Status Date / Time aripiprazole [From Abilify] Allergy Mild Verified 02/10/22 10:04 bupropion Allergy Mild Verified 02/10/22 10:04 haloperidol [From Haldol] Allergy Mild Verified 02/10/22 10:04 nitroglycerin Allergy Mild Verified 02/10/22 10:04 thiothixene [From Navane] Allergy Mild Verified 02/10/22 10:04 trifluoperazine Allergy Mild Verified 02/10/22 10:04 [From Stelazine] ziprasidone Allergy Mild Verified 02/10/22 10:04 Review of Systems Status of ROS: Reports: unobtainable due to mental status Exam 2 Narrative: Exam Narrative: Constitutional: Well-developed, well-nourished, no acute distress. HEENT: Normocephalic, atraumatic. Neck: Normal range of motion. Nontender. Supple. Heart: Regular. No murmurs. Normal rate. Intact distal pulses. Lungs: Clear to auscultation. No chest discomfort. No wheezes, rhonchi, or rales. Abdomen: Normal bowel sounds. Nontender. No rebound tenderness. Genitalia: Deferred. Back: No midline tenderness. Normal range of motion. Extremities: Normal range of motion. No injury. Skin: Intact. No rash. Warm. No erythema or pallor. Neurologic: No altered sensation. Lethargic. Slow slurred speech. Slow responses. Senior Teller strength is equal bilaterally. No facial asymmetry. He is able to raise each leg from the bed. Pronator drift is negative. Lawmgm-oy-fnbj is normal. Psychiatric: No suicidality. No anxiety or depression. No insomnia. Nursing notes and vitals signs are reviewed. Const: Vital Signs, click to edit/add: Vital Signs - 24 hr 02/10/22 09:52 02/10/22 10:00 02/10/22 10:30 Temperature 98.6 F Pulse Rate [Left P ulse Oximeter] 82 82 80 Respiratory Rate 20 16 16 Blood Pressure [Ri ght Upper Arm] 120/64 127/75 134/79 Pulse Oximetry 91 90 91 Oxygen Delivery Me thod Room Air Room Air Room Air 02/10/22 11:00 02/10/22 11:15 02/10/22 11:30 Temperature Pulse Rate [Left P ulse Oximeter] 84 80 80 Respiratory Rate 16 16 16 Blood Pressure [Ri ght Upper Arm] 141/78 H 135/76 133/71 Pulse Oximetry 91 92 91 Oxygen Delivery Me thod Room Air Room Air Room Air 02/10/22 11:45 Temperature Pulse Rate [Left P ulse Oximeter] 78 Respiratory Rate 16 Blood Pressure [Ri ght Upper Arm] 137/68 Pulse Oximetry 90 Oxygen Delivery Me thod Room Air Course Vital Signs Vital signs: Initial Vital Signs Temperature 98.6 F 02/10/22 09:52 Temperature Source Temporal Artery Scan 02/10/22 09:52 Pulse Rate 82 02/10/22 09:52 Pulse Rhythm 02/10/22 09:52 Respiratory Rate 20 02/10/22 09:52 Blood Pressure 120/64 02/10/22 09:52 Blood Pressure Mean 82 02/10/22 09:52 Blood Pressure Position Sitting 02/10/22 09:52 Pulse Oximetry 91 02/10/22 09:52 Oxygen Delivery Method 02/10/22 09:52 Vital Signs Temperature 98.6 F 02/10/22 09:52 Pulse Rate 82 02/10/22 09:52 Respiratory Rate 20 02/10/22 09:52 Blood Pressure 120/64 02/10/22 09:52 Pulse Oximetry 91 02/10/22 09:52 Oxygen Delivery Method 02/10/22 09:52 Temperature 98.6 F 02/10/22 09:52 Pulse Rate 78 02/10/22 11:45 Respiratory Rate 16 02/10/22 11:45 Blood Pressure 137/68 02/10/22 11:45 Pulse Oximetry 90 02/10/22 11:45 Oxygen Delivery Method 02/10/22 11:45 Medical Decision Making MDM Narrative Medical decision making narrative: This patient comes in with slurred speech and slow responses that are really typical of benzodiazepine use. He does take Xanax 0.5 mg twice daily. He states that he has not taken any more than normal. Initially he was very d ifficult to understand but over the course of an hour to he distinctly improved. CT scan of the head and chest x-ray returned with no acute findings. His lab results are also reassuring except that is noted that he has a sodium level at 128. Apparently this is not new for him. It is not critically low. He did receive 500 mL of normal saline EN route here by ambulance and I did administer another 500 mL here. The patient continued to improve and states that he wants to return home. He does feel a bit unsteady and shaky at times. He states that he has a long-term history of tardive dyskinesia from psychotropic meds he took long ago. He feels that he is back to his normal function. It is uncertain as to what caused his symptoms but he is not displaying any signs or symptoms of a cerebrovascular accident. Despite him saying that he has not taken any extra benzodiazepines, his speech and slow responses that improved over time could most easily be explained by this cause. In any event he seems to be of sound mind and able to make decisions for himself appropriately. I did discuss admission to the hospital but he states that he wants to return home. He is able to ambulate and speech is back to normal completely. Lab Data Labs: Lab Results 02/10/22 02/10/22 02/10/22 Range/Units 10:42 10:42 10:42 WBC 10.84 (4.50-11.00) K/uL RBC 3.50 L (4.30-5.90) m/uL Hgb 11.0 L (13.5-17.5) gm/dL Hct 31.1 L (37.0-53.0) % MCV 89 (80-100) fL MCH 31 (26-34) pg MCHC 35 (32-36) gm/dL RDW Coeff of Arlene 11.8 (11.5-15.5) % Plt Count 156 (140-440) K/uL Neut % (Auto) 62.6 (42.0-72.0) % Lymph % (Auto) 18.9 L (20-44) % Crenshaw % (Auto) 17.5 H (0.0-11.0) % Eos % (Auto) 0.7 (0.0-7.0) % Baso % (Auto) 0.2 (0.0-3.0) % Neut # (Auto) 6.78 (1.7-7.0) K/uL Lymph # (Auto) 2.00 (0.90-2.90) K/uL Crenshaw # (Auto) 1.90 H (0.00-0.90) K/UL Eos # (Auto) 0.08 (0.00-0.50) K/uL Baso # (Auto) 0.02 (0.00-0.30) K/uL Abs Immat Gran (auto) 0.01 (0.00-0.30) K/uL Sodium 128 L (135-149) mmol/L Potassium 4.5 (3.6-5.1) mmol/L Chloride 98 (96-114) mmol/L Carbon Dioxide 24 (20-32) mmol/L BUN 17 (7-30) mg/dL Creatinine 1.0 (0.5-1.5) mg/dL Estimated GFR 91 ml/min Glucose 97 (60-115) mg/dL Lactate 1.5 (0.5-1.9) mmol/L Calcium 8.3 L (8.4-10.6) mg/dL Urine Color (Yellow) Urine Appearance (Clear) Urine pH (5.0-8.5) Ur Specific [place] (1.000-1.030) Urine Protein (Negative) Urine Glucose (UA) (Negative) Urine Ketones (Negative) Urine Blood (Negative) Urine Nitrite (Negative) Urine Bilirubin (Negative) Urine Urobilinogen (0.2-1.0) Ur Leukocyte Esterase (Negative) Urine RBC (0-2) Urine WBC (0-5) Ur Squamous Epith Cells (None-Few) Urine Bacteria (None) Urine Opiates Screen (Negative) Ur Oxycodone Screen (Negative) Urine Methadone Screen (Negative) Ur Propoxyphene Screen (Negative) Ur Barbiturates Screen (Negative) U Tricyclic Antidepress (Negative) Ur Phencyclidine Scrn (Negative) Ur Amphetamines Screen (Negative) U Methamphetamines Scrn (Negative) U Benzodiazepines Scrn (Negative) Urine Cocaine Screen (Negative) U Marijuana (THC) Screen (Negative) Ur Drug Screen Comment SARS-CoV-2 (PCR) (Negative) Influenza Type A (PCR) (Negative) Influenza Type B (PCR) (Negative) 02/10/22 02/10/22 02/10/22 Range/Units 11:07 11:07 11:07 WBC (4.50-11.00) K/uL RBC (4.30-5.90) m/uL Hgb (13.5-17.5) gm/dL Hct (37.0-53.0) % MCV (80-100) fL MCH (26-34) pg MCHC (32-36) gm/dL RDW Coeff of Arlene (11.5-15.5) % Plt Count (140-440) K/uL Neut % (Auto) (42.0-72.0) % Lymph % (Auto) (20-44) % Crenshaw % (Auto) (0.0-11.0) % Eos % (Auto) (0.0-7.0) % Baso % (Auto) (0.0-3.0) % Neut # (Auto) (1.7-7.0) K/uL Lymph # (Auto) (0.90-2.90) K/uL C[place]shaw # (Auto) (0.00-0.90) K/UL Eos # (Auto) (0.00-0.50) K/uL Baso # (Auto) (0.00-0.30) K/uL Abs Immat Gran (auto) (0.00-0.30) K/uL Sodium (135-149) mmol/L Potassium (3.6-5.1) mmol/L Chloride (96-114) mmol/L Carbon Dioxide (20-32) mmol/L BUN (7-30) mg/dL Creatinine (0.5-1.5) mg/dL Estimated GFR ml/min Glucose (60-115) mg/dL Lactate (0.5-1.9) mmol/L Calcium (8.4-10.6) mg/dL Urine Color Yellow (Yellow) Urine Appearance Clear (Clear) Urine pH 7.5 (5.0-8.5) Ur Specific [place] 1.020 (1.000-1.030) Urine Protein 3+ A (Negative) Urine Glucose (UA) 2+ A (Negative) Urine Ketones Negative (Negative) Urine Blood 2+ A (Negative) Urine Nitrite Negative (Negative) Urine Bilirubin Negative (Negative) Urine Urobilinogen 0.2 (0.2-1.0) Ur Leukocyte Esterase Negative (Negative) Urine RBC 5-10 A (0-2) Urine WBC 0-2 (0-5) Ur Squamous Epith Cells None (None-Few) Urine Bacteria None (None) Urine Opiates Screen Negative (Negative) Ur Oxycodone Screen Negative (Negative) Urine Methadone Screen Negative (Negative) Ur Propoxyphene Screen Negative (Negative) Ur Barbiturates Screen Negative (Negative) U Tricyclic Antidepress POSITIVE A* (Negative) Ur Phencyclidine Scrn Negative (Negative) Ur Amphetamines Screen Negative (Negative) U Methamphetamines Scrn Negative (Negative) U Benzodiazepines Scrn POSITIVE A* (Negative) Urine Cocaine Screen Negative (Negative) U Marijuana (THC) Screen Negative (Negative) Ur Drug Screen Comment See Note SARS-CoV-2 (PCR) Negative SARS-CoV-2 (Negative) Influenza Type A (PCR) Negative PCR FLU A (Negative) Influenza Type B (PCR) Negative PCR FLU B (Negative) Imaging Data Chest x-ray: Radiologist's impression: Hyperinflation with increased interstitial markings commensurate with pulmonary vascular congestion and/or bronchitis changes. No dense consolidation. CT scan - head: Radiologist's impression: Normal unenhanced head CT. Minor paranasal sinus mucosal inflammatory disease. ECG Data Attestation: I personally reviewed and interpreted this ECG as follows: Interpretation: Normal sinus rhythm. Rate is 81 beats per minute. There are no ST or T-wave abnormalities. Discharge Plan Discharge Clinical Impression: Altered mental status Patient Disposition: Home, Self-Care Condition: Improved Additional Instructions: Continue current plans. Follow up with MD or return if recurrent or worsening symptoms happen. Prescriptions: No Action alprazolam 0.5 mg tablet 0.5 mg PO BID amlodipine 10 mg tablet 10 mg PO DAILY aspirin [Ecotrin Low Strength] 81 mg tablet,delayed release (DR/EC) 81 mg PO DAILY buspirone 10 mg tablet 30 mg PO TID divalproex 500 mg tablet,delayed release (DR/EC) 1,000 mg PO BID famotidine 20 mg tablet 20 mg PO BID gabapentin 300 mg capsule 900 mg PO TID Jardiance 10 mg tablet 10 mg PO DAILY metformin 1,000 mg tablet 1,000 mg PO BID metoprolol succinate 50 mg tablet extended release 24 hr 50 mg PO DAILY multivitamin [Daily Multi-Vitamin] Tablet 1 tab PO DAILY insulin aspart U-100 [Novolog Flexpen U-100 Insulin] 100 unit/mL (3 mL) insulin pen 10 unit subcut .tid WITH MEALS quetiapine 200 mg tablet 200 mg PO HS risperidone 3 mg tablet 3 mg PO BID Risperdal 50 mg 50 mg IM .[id number] rosuvastatin 20 mg tablet 20 mg PO HS insulin degludec [Tresiba FlexTouch U-200] 200 unit/mL (3 mL) insulin pen 28 unit subcut QHS trihexyphenidyl 5 mg tablet 5 mg PO BID Rx Instructions: give with food (meal/snack) Follow Up/Referrals: Zhane Stanley DO [Primary Care Provider] - Stand Alone [facility]: [facility]
--- NOTE | 2022-02-10 09:51 | CRLHL7_ITS ---
For Patients: As a result of the Century Cures Act, medical imaging exams and procedure reports are released immediately into your electronic medical record. You may view this report before your referring provider. If you have questions, please contact your health care provider. Indication: Cough Comparison: Two-view chest August 12, 2020 Technique: Single AP view chest Findings: There is hyperinflation and chronic interstitial change. There are increased interstitial markings commensurate with bronchial thickening and/or pulmonary edema. There are linear basilar opacities commensurate with atelectasis. The cardiomediastinal silhouette is within normal limits. The bony thorax is grossly intact. Impression: Hyperinflation with increased interstitial markings commensurate with pulmonary vascular congestion and/or bronchitis changes. No dense consolidation. Dictated by Kailash Ttius MD @ 02/10/2022 10:48:49 AM (Electronically Signed)
--- NOTE | 2022-02-10 10:45 | ED.NURSE ---
EMS NS 500cc bolus complete
[2022-02-10 10:53] LABS: Lactate* 1.5 mmol/L (0.5-1.9)
[2022-02-10 10:59] LABS: Basophils Absolute Auto 0.02 K/uL (0.00-0.30); Basophils Percent Auto 0.2 % (0.0-3.0); Eosinophils Absolute Auto 0.08 K/uL (0.00-0.50); Eosinophils Percent Auto 0.7 % (0.0-7.0); Hematocrit 31.1 % (37.0-53.0); Immature Granulocytes Abs Auto 0.01 K/uL (0.00-0.30); Lymphocytes Percent Auto 18.9 % (20-44); Mean Corpuscular HGB Conc 35 gm/dL (32-36); Mean Corpuscular Hemoglobin 31 pg (26-34); Mean Corpuscular Volume 89 fL (80-100); Monocytes Percent Auto 17.5 % (0.0-11.0); Neutrophils Absolute Auto 6.78 K/uL (1.7-7.0); Neutrophils Percent Auto 62.6 % (42.0-72.0); Platelet Count* 156 K/uL (140-440); RDW Coefficient of Variation % 11.8 % (11.5-15.5); White Blood Count* 10.84 K/uL (4.50-11.00)
[2022-02-10 11:07] LABS: Slide Review Reflex No
[2022-02-10 11:12] LABS: Chloride* 98 mmol/L (96-114); Sodium* 128 mmol/L (135-149)
[2022-02-10 11:13] LABS: Potassium* 4.5 mmol/L (3.6-5.1)
[2022-02-10 11:15] LABS: Blood Urea Nitrogen* 17 mg/dL (7-30); Carbon Dioxide* 24 mmol/L (20-32); Estimated Glomerular Filt Rate 91 ml/min
[2022-02-10 11:16] LABS: Calcium* 8.3 mg/dL (8.4-10.6); Glucose* 97 mg/dL (60-115)
[2022-02-10 11:16] LABS: Appearance Urine Clear (Clear); Bilirubin Urine Negative (Negative); Blood Urine 2+ (Negative); Color Urine Yellow (Yellow); Glucose Urine 2+ (Negative); Ketones Urine Negative (Negative); Leukocyte Esterase Urine Negative (Negative); Nitrite Urine Negative (Negative); Protein Urine 3+ (Negative); Urobilinogen Urine 0.2 (0.2-1.0); pH Urine 7.5 (5.0-8.5)
[2022-02-10 11:32] LABS: Amphetamine Screen Urine Negative (Negative); Barbiturate Screen Urine Negative (Negative); Cannabinoid Screen Urine Negative (Negative); Cocaine Screen Urine Negative (Negative); Methadone Screen Urine Negative (Negative); Methamphetamines Screen Urine Negative (Negative); Opiate Screen Urine Negative (Negative); Oxycodone Screen Urine Negative (Negative); Phencyclidine Screen Urine Negative (Negative)
[2022-02-10 11:42] LABS: Benzodiazepines Screen Urine POSITIVE (Negative); Tricyclic Antidepressant Urine POSITIVE (Negative)
--- NOTE | 2022-02-10 11:42 | ED.NURSE ---
call from lab, benzos and tca in urine, notified
[2022-02-10 11:48] LABS: WBC Urine 0-2 (0-5)
[2022-02-10 11:51] LABS: PCR FLU A Negative PCR FLU A (Negative); PCR FLU B Negative PCR FLU B (Negative)
[2022-02-10] MEDS: 0.9 % SODIUM CHLORIDE 500 ML 500 ML IV (13:20)
[2022-02-10 13:22] LABS: SARS PCR* Negative SARS-CoV-2 (Negative)
--- NOTE | 2022-02-10 13:30 | ED.NURSE ---
Pt did eat meal.
--- NOTE | 2022-02-10 14:00 | ED.NURSE ---
Call to [facility], [place] again, per Joanne Pt is independent, speaks clearly and ambulates well independently. They do admin his medications. Pt did ambulate to bathroom now with standby assist
--- NOTE | 2022-02-10 14:40 | ED.NURSE ---
Attempted to use urinal x2, unsuccessfully. Impulsive, asked to use call light, but attempts to get out of bed unassisted. Requires frequent redirection. Resting at this time, requests lights off.
== END 2022-02-10 16:19 | disposition home or self-care (01) ==
PROVIDERS: Emergency Provider Emergency Medicine Emergency Medical Services; PCP Family Medicine
DX: R41.82 Altered mental status, unspecified (principal)
CPT/HCPCS: 36415; 70450; 71045; 80048; 80306; 81001; 82962; 83605; 85025; 87040; 87631; 93005; 99285; J7120

== ENCOUNTER 2022-02-12 11:11 | Emergency (ER) | payer MEDICARE, MEDICAID, SELFPAY ==
[2022-02-12 11:26] VITALS: BP 129/71; PULSE 86; RESP 14; TEMP 36.8; O2SAT 89; BMI 30.8
--- NOTE | 2022-02-12 11:48 | CRLHL7_ITS ---
For Patients: As a result of the Century Cures Act, medical imaging exams and procedure reports are released immediately into your electronic medical record. You may view this report before your referring provider. If you have questions, please contact your health care provider. INDICATION: Cough. TECHNIQUE: Chest 2 views. COMPARISON: Chest x-ray from 02/10/2022. FINDINGS: Lungs: Increasing streaky right upper lobe opacities. No focal consolidation. Pleura: No pleural effusion or pneumothorax. Heart and Mediastinum: The cardiomediastinal silhouette is normal. The vessels are unremarkable. Bones: Unremarkable. IMPRESSION: Increasing right upper lobe opacities could be developing pneumonia in the appropriate clinical setting. Dictated by Tha Scott MD @ 02/12/2022 12:27:25 PM (Electronically Signed)
--- OUTSIDE RECORDS SUMMARY | 2022-02-12 12:00 | XMS_ITS | Encounter Summary ---
:1970 Author [facility] Address [address] [place] [address] Care Team Providers Name Role Phone Gagandeep Michaud MD Primary Care Provider Reason for Visit Reason Comments Refill NOVOFINE AUTOCOVER PEN NEEDL E 30G X 8 MM [Pharmacy Med Name: NovoFine Autocover Pen Needle 30G X 8 MM Miscellaneous] Encounter Details Date Type Department Care Team Description 09/28/2021 Refill [facility] Gagandeep Michaud, Refil l (NOVOFINE Medicine AUTOCOVER PEN NEEDLE 30G [address] X 8 MM [Pharmacy Med [place] [address] [place] [address] Name: NovoFine Autocover [phone] (Wo rk) Pen Needle 30G X 8 MM Miscellan eous]) Social History Tobacco Use Types Packs/Day Years Used Date Smoking Tobacco: Every Day Cigarettes 1 25 S tarted: 05/17/1984 Smokeless Tobacco: Former Qu it: 10/25/2012 Comments: about 2 cigarettes at most Alcohol Use Standard Drinks/Week Comments No 0 (1 standard drink = 0.6 oz pure Alcoho lic Drinks/day: Amount:0; alcohol) Freq:Never; Sex Assigned at Date Recorded Not on file documented as of this encounter Nursing Notes Gloria Hdez RN - 10/02/2021 11:00 AM CDT Refusal sent to pharmacy. Patient no longer under Provider care Izabella Chin - 10/02/2021 10:33 AM CDT Medication Refill - Overdue for Visit Called patient, was: Successful in reaching patient We recently received a refill request for one of your medications. In order to ensure your medication is safe and effective, your clinician needs to see you at least yearly for an office visit. May I help you schedule that office visit? Patient is due for a(n): office visit Patient no longer receiving care at [facility] PATIENT IS BEING SEEN AT [facility] [place]. Frontline: Route to Refill Wizard Admin Pool-PN ([phone] [id number]) Alyssa Porter RN - 10/02/2021 9:16 AM CDT Further Assistance Needed on Refill from Manager Administrative Services Patient is overdue for Office visit. An office visit is overdue (performed 16 months ago, required every 12 months). Last qualifying visit: 06/09/2020 (with GAGANDEEP MICHAUD) Next scheduled visit: None Please call patient to schedule a Video Visit and document using .JADE. After attempting to schedule patient: Please route to: Gagandeep Michaud MD Requested Prescriptions Pending Prescriptions Disp Refills ??? NOVOFINE AUTOCOVER PEN NEEDLE 30G X 8 MM [Pharmacy Med Name: NovoFine Autocover Pen Needle 30G X8 MM Miscellaneous] 400 Each 0 Sig: USE DIRECTED WITH INSULIN PENS Interface, Out Surescripts Prov Query - 09/28/2021 11:11 AM CDT NOVOFINE AUTOCOVER PEN NEEDLE 30G X 8 MM [Pharmacy Med Name: NovoFine Autocover Pen Needle 30G X 8 MM Miscellaneous] Medication started: 07/19/2016 Last ordered by GAGANDEEP MICHAUD: 09/04/2020 (389 days ago) QTY: 400, Refills: 3, Sig: use as directed with insulin pens (unchanged) -> An office visit is overdue (performed 16 months ago, required every 12 months). Last qualifying visit: 06/09/2020 (with GAGANDEEP MICHAUD) Next scheduled visit: None [employer] Embedded Refills, Reference: [id number], 09/28/2021 11:11:56 AM CDT, Pool: MANUEL REFILL ([id number]) documented in this encounter Plan of Treatment Not on filedocumented as of this encounter Visit Diagnoses Not on filedocumented in this encounter Care Teams Instructional Technology Coordinator Relationship Specialty Start Date End Date Gagandeep Michaud MD PCP - General 05/17/[address] [place] [address] [place] [id number] Vane Zarate Psychiatrist Psychiatry 03/22/12 [facility] Psychotherapist 08/04/17 [facility] Electronic Warfare Officer 09/13/17 documented as of this encounter
--- OUTSIDE RECORDS SUMMARY | 2022-02-12 12:00 | XMS_ITS | Encounter Summary ---
:1970 Author [facility] Address [address] [place] [address] Care Team Providers Name Role Phone Gagandeep Michaud MD Primary Care Provider Reason for Visit Reason Comments Refill metFORMIN (GLUCOPHAGE) 1000 MG tablet [Pharmacy Med Name: metFORMIN HCl 1000 MG Tablet]; lisinopril (ZEST RIL) 5 MG tablet [Pharmacy Med Name: Lisinopril 5 MG Tablet] Encounter Details Date Type Department Care Team Description 09/02/2020 Refill [place] [facility] Gagandeep Michaud, Refil l (metFORMIN Medicine MD (GLUCOPHAGE) [address] tablet [[place] [address] [place] [address] Name: metFORMIN HCl 1000 [phone] (Wo rk) MG Tablet]; lisinopril (ZESTRIL) 5 MG tablet [Pharmacy Med N fabiana: Lisinopril 5 MG Tablet]) Social History Tobacco Use Types Packs/Day Years [...] documented as of this encounter Nursing Notes Merlyn Urias RN - 09/04/2020 3:44 PM CDT Further Assistance Needed on Refill from Clinician RN reviewed. Medication not listed on standing order. Last qualifying visit: 06/09/2020 (with GAGANDEEP MICHAUD) Next scheduled visit: None Review pended order for accuracy and sign if appropriate Requested Prescriptions Pending Prescriptions Disp Refills risperiDONE (RISPERDAL) 3 MG tablet 180 Tablet 0 Sig: Take 1 Tablet by mouth two times a day. Jose M Plaza RN - 09/03/2020 12:43 PM CDT COPIED FROM SPLIT REFILL ENCOUNTER Routing to refill Pool Interface, Out SureMeludia Prov Query - 09/03/2020 12:43 PM CDT risperiDONE (RISPERDAL) 3 MG tablet Medication started: 06/09/2018 Last ordered by GAGANDEEP MICHAUD: 05/08/2020 (118 days ago) QTY: 60, Refills: 1, Sig: take one tablet by mouth twice a day (changed but equivalent) -> The patient is requesting a renewal from a different pharmacy. -> Medication cannot be delegated. Last qualifying visit: 06/09/2020 (with GAGANDEEP MICHAUD) Next scheduled visit: None Powered by [employer], Reference: [id number], 09/03/2020 12:43:21 PM CDT, Pool: PN REFILL WIZARD ADMIN ([id number]) documented in this encounter Plan of Treatment Not on filedocumented as of this encounter Visit Diagnoses Not on filedocumented in this encounter Care Teams Ordnance Equipment Worker Relationship Specialty Start Date End Date Gagandeep Michaud MD PCP - General 05/17/12 [address] [facility] [place] [address] Vane Zarate Psychiatrist Psychiatry 03/22/12 [facility] Psychotherapist 08/04/17 [facility] Operations Liaison 09/13/17 documented as of this encounter
--- OUTSIDE RECORDS SUMMARY | 2022-02-12 12:00 | XMS_ITS | Encounter Summary ---
:1970 Author Organization [facility] Address [address], [place] [address] Care Team Providers Name Role Phone Gagandeep Hinojosa MD Primary Care Provider Reason for Visit Reason Comments Patient Care Coordination Encounter Details Date Type Department Care Team Description 08/20/2020 Care Coord [facility] Deborah Rodrigues Patien t Care Phone Medicine LITHOSTRIPPER Coordination [facility] [place] [address] [place] [address] [phone] Social History Tobacco Use Types Packs/Day Years [...] documented as of this encounter Nursing Notes Deborah Rodrigues LICSW - 08/20/2020 2:18 PM CDT Rock Duster - Phone Call Contact with: KARLEY Easton CM Reason for call: Care Coordination Discussion/actions: Called Rustam to check in, and he stated he is doing ???okay and is at a jail in [place].Rustam said that he has been having a lot of anxiety, but is trying to get settled in down there. Rustam is establishing medical care in [place], but agreed to call if he needed anything. I talked with him about the free insulin that was shipped to the [facility], but he was unable to think about a solution on how to get the insulin. I told Rustam that he has a dermatology appointment next month, at the [facility], so he may be able to get it at that time. Rustam was still not able to make any decisions around this. I agreed to contact his CM, Han, and see what his thoughts were. Called Han and spoke to him. He said that Rustam is really struggling right now, but he is in a safeplace. I told Han about Rustam's Dermatology appointment, and he is going to make sure the jail can transport him. Once Han confirms that Rustam will be attending this appointment, he will let me know and I can coordinate getting his insulin to that clinic. Han agrees with this plan. Shared plan: -Care Coordination follow-up as needed. -Dermatology appointment 09/19 at 10:30. Pt verbalized understanding and agreed with plan of care and follow up. documented in this encounter Plan of Treatment Not on filedocumented as of this encounter Visit Diagnoses Diagnosis Health jail, active care coordinati on - Primary documented in this encounter Care Teams Automatic Presser Relationship Specialty Start Date End Date Gagandeep Hinojosa MD PCP - General 05/17/12 [address] [place] [address] Vane Zarate Psychiatrist Psychiatry 03/22/12 [facility] Mental Health Psychotherapist 08/04/17 [facility] Stripper Cutter Machine 09/13/17 documented as of this encounter
--- OUTSIDE RECORDS SUMMARY | 2022-02-12 12:00 | XMS_ITS | Encounter Summary ---
:1970 Author Organization [facility] Address [address] [place] [address] Care Team Providers Name Role Phone Gagandeep Michaud MD Primary Care Provider Reason for Visit Reason Comments Refill metFORMIN (GLUCOPHAGE) 1000 MG tablet [Pharmacy Med Name: metFORMIN HCl 1000 MG Tablet]; lisinopril (ZEST RIL) 5 MG tablet [Pharmacy Med Name: Lisinopril 5 MG Tablet] Encounter Details Date Type Department Care Team Description 09/02/2020 Refill [place] [facility] Gagandeep Michaud, Refil l (metFORMIN Medicine MD (GLUCOPHAGE) [address] tablet [[place] [address] [place] [address] Name: metFORMIN HCl 1000 [phone] (Wo rk) MG Tablet]; lisinopril (ZESTRIL) 5 [...] documented as of this encounter Nursing Notes Marco Antonio Malcolm, JACLYN - 09/05/2020 9:19 AM CDT This encounter was opened 09/02/20 after receiving a refill request from pt;s pharmacy. Please delete/refuse pended medication and close note Gagandeep Michaud MD - 09/05/2020 9:15 AM CDT This was refilled yesterday. Why is new refill requested? Abbie Mitchell RN - 09/05/2020 4:56 AM CDT Further Assistance Needed on Refill from Clinician Signed order needed. Requested item / medication not on RN refill list Last ordered by GAGANDEEP MICHAUD: 05/08/2020 (117 days ago) QTY: 60, Refills: 1 Last qualifying visit: 06/09/2020 (with GAGANDEEP MICHAUD) Next scheduled visit: None Review pended order for accuracy and sign if appropriate and Close encounter Requested Prescriptions Pending Prescriptions Disp Refills ??? risperiDONE (RISPERDAL) 3 MG tablet [Pharmacy Med Name: risperiDONE 3 MG Tablet] 60 Tablet 1 Sig: TAKE 1 TABLET BY MOUTH TWICE DAILY Jaclyn Plaza RN - 09/03/2020 12:43 PM CDT Routing to refill Pool Interface, Out Surescripts Prov Query - 09/02/2020 1:17 PM CDT risperiDONE (RISPERDAL) 3 MG tablet [Pharmacy Med Name: risperiDONE 3 MG Tablet] Medication started: 06/09/2018 Last ordered by GAGANDEEP MICHAUD: 05/08/2020 (117 days ago) QTY: 60, Refills: 1, Sig: take one tablet by mouth twice a day (changed but equivalent) -> Medication cannot be delegated. Last qualifying visit: 06/09/2020 (with GAGANDEEP MICHAUD) Next scheduled visit: None Powered by Kickboard by Finale Desserts, Reference: [id number], 09/02/2020 1:17:40 PM CDT, Pool:MANUEL MOORE ([id number]) documented in this encounter Plan of Treatment Not on filedocumented as of this encounter Visit Diagnoses Not on filedocumented in this encounter Care Teams Department Coordinator Relationship Specialty Start Date End Date Gagandeep Michaud MD PCP - General 05/17/[address] [place], [place] [address] [address] Vane Zarate Psychiatrist Psychiatry 03/22/12 [facility] Mental Health Psychotherapist 08/04/17 [facility] Spooling Operator 09/13/17 documented as of this encounter
--- OUTSIDE RECORDS SUMMARY | 2022-02-12 12:00 | XMS_ITS | Encounter Summary ---
:1970 Author Organization [facility] Address [address] [place] [address] Care Team Providers Name Role Phone Gagandeep Michaud MD Primary Care Provider Reason for Visit Reason Comments Refill metoprolol succinate (TOPROL XL) 50 MG 24 hour release tablet [Pharmacy Med Name: Metoprolol Succinate E R 50 MG Tablet extended release 24 hr] Encounter Details Date Type Department Care Team Description 08/25/2021 Refill Gagandeep Storm, Refrose mary l (metoprolol Medicine MD succinate (TOPROL XL) [address] MG 24 hour release [place] [address] [place] [address] tablet [Pharmacy Med [phone] (Wo rk) Name: Metoprolol Succinate ER 50 MG Tablet extended release 24 hr]) Social History Tobacco Use Types Packs/Day Years [...] documented as of this encounter Nursing Notes Izabella Chin - 09/03/2021 11:21 AM CDT Medication Refill - Overdue for [...] visit Patient no longer receiving care at [facility]; pt stated switched providers due to living in [place] now. Frontline: Route to Refill Wizard Admin Pool-PN (P [id number]) Shayy Haynes RN - 08/27/2021 2:22 PM CDT Further Assistance Needed on Refill from Bullet Maker Patient is overdue for Office visit. An office visit is overdue (performed 15 months ago, required every 12 months). Last qualifying visit: 06/09/2020 (with GAGANDEEP MICHAUD) Next scheduled visit: None Please call patient to schedule a Office/Video Visit and document using .JADE. After attemptingto schedule patient: Please route to: Gagandeep Michaud MD Requested Prescriptions Pending Prescriptions Disp Refills metoprolol succinate (TOPROL XL) 50 MG 24 hour release tablet [Pharmacy Med Name: Metoprolol Succinate ER 50 MG Tablet extended release 24 hr] 90 Tablet 0 Sig: TAKE 1 TABLET BY MOUTH DAILY Interface, Out Surescripts Prov Query - 08/25/2021 9:39 AM CDT metoprolol succinate (TOPROL XL) 50 MG 24 hour release tablet [Pharmacy Med Name: Metoprolol Succinate ER 50 MG Tablet extended release 24 hr] Medication started: 06/09/2016 Last ordered by GAGANDEEP MICHAUD: 09/02/2020 (357 days ago) QTY: 90, Refills: 3, Sig: take 1 tablet by mouth daily (unchanged) -> An office visit is overdue (performed 15 months ago, required every 12 months). Last qualifying visit: 06/09/2020 (with GAGANDEEP MICHAUD) Next scheduled visit: None Powered by LoggedInfinch by WeGoOut, Reference: [id number], 08/25/2021 9:39:07 AM CDT, Pool:MANUEL LANDACHIP ([id number]) documented in this encounter Plan of Treatment Not on filedocumented as of this encounter Visit Diagnoses Diagnosis Essential hypertension (HRC) Unspecified essential hypertension documented in this encounter Care Teams Chainstitch Sewing Machine Operator Relationship Specialty Start Date End Date Gagandeep Michaud MD PCP - General 05/17/12 [address] [facility] [address] Vane Zarate Psychiatrist Psychiatry 03/22/12 [facility] Psychotherapist 08/04/17 [facility] Ultimate Hoops Trainer 09/13/17 documented as of this encounter
--- OUTSIDE RECORDS SUMMARY | 2022-02-12 12:00 | XMS_ITS | Encounter Summary ---
:1970 Author Organization [facility] Address [address], [place] [address] Care Team Providers Name Role Phone Gagandeep Hinojosa MD Primary Care Provider Reason for Visit Reason Comments Patient Care Coordination Encounter Details Date Type Department Care Team Description 05/05/2021 Care Coord [facility] Deborah Rodrigues Patien t Care Phone Medicine SAFETY INVESTIGATOR Coordination [facility] [place] [address] [place] [address] [phone] Social History Tobacco Use Types Packs/Day Years [...] encounter Nursing Notes Deborah Rodrigues LICSW - 05/05/2021 1:25 PM CST Health Long Term, Active Care Coordination resolved in patient???s Problem List. Reason: Patient moved out of the area Patient may be referred again in the future if needed. RVATORY DIRECTOR documented in this encounter Plan of Treatment Not on filedocumented as of this encounter Visit Diagnoses Diagnosis Health prison, active care coordinati on - Primary documented in this encounter Care Teams Literacy Education Professor Relationship Specialty Start Date End Date Gagandeep Hinojosa MD PCP - General 05/17/12 [address] [facility] [place] [address] Vane Zarate Psychiatrist Psychiatry 03/22/12 [facility] Mental [facility] Psychotherapist 08/04/17 [facility] Terra Cotta Roofer 09/13/17 documented as of this encounter
--- OUTSIDE RECORDS SUMMARY | 2022-02-12 12:00 | XMS_ITS | Encounter Summary ---
:1970 Author Organization [facility] Address [address], [place] [address] Care Team Providers Name Role Phone Gagandeep Michaud MD Primary Care Provider Reason for Visit Reason Comments Refill Lisinopril and Metformin Encounter Details Date Type Department Care Team Description 09/02/2020 Refill [facility] Gagandeep Michaud, Refil l (Lisinopril and Medicine Metformin) [address] [facility] . [address] [place] [address] [place] [address] [phone] (Wo rk) Social History Tobacco Use Types Packs/Day Years [...] documented as of this encounter Nursing Notes Jose M Plaza RN - 09/05/2020 8:43 AM CDT Spoke with pt. States already with a different provider through [facility] as he moved to [place] now. Will request refills through new provider. No other requests. Interface, Out Surescripts Prov Query - 09/05/2020 5:10 AM CDT The patient chart could not be locked at 09/05/2020 5:10 AM by [employer] in order to process this refill request. Please try re-routing to attempt to retry processing through WeddingLovelyfinFamilybuilder. Interface, Out Surescripts Prov Query - 09/05/2020 5:09 AM CDT The patient chart could not be locked at 09/05/2020 5:09 AM by [employer] in order to process this refill request. Please try re-routing to attempt to retry processing through [employer]. Abbie Mitchell RN - 09/05/2020 5:09 AM CDT Further Assistance Needed on Refill from Nursing/Triage Lisinopril was discontinued on 06/09/2016. Please see other refill encounter requiring triage. Next steps: Nursing/Triage to complete refill as appropriate. Requested Prescriptions Pending Prescriptions Disp Refills ??? lisinopril (ZESTRIL) 5 MG tablet [Pharmacy Med Name: Lisinopril 5 MG Tablet] 90 Tablet 0 Sig: TAKE 1 TABLET BY MOUTH DAILY ??? metFORMIN (GLUCOPHAGE) 500 MG tablet 360 Tablet 0 Sig: Take 2 Tablets by mouth two times a day with meals. Refused Prescriptions Disp Refills ??? metFORMIN (GLUCOPHAGE) 1000 MG tablet [Pharmacy Med Name: metFORMIN HCl 1000 MG Tablet] 180 Tablet 0 Sig: TAKE 1 TABLET BY MOUTH TWICE DAILY WITH MEAL(S) Refused By: ABBIE MITCHELL Reason for Refusal: Refill Not Appropriate Jose M Plaza RN - 09/03/2020 12:43 PM CDT Routing to refill Pool Interface, Out Surescripts Prov Query - 09/02/2020 1:16 PM CDT lisinopril (ZESTRIL) 5 MG tablet [Pharmacy Med Name: Lisinopril 5 MG Tablet] Medication started: 12/09/2014 Last ordered by GAGANDEEP MICHAUD F: 12/24/2015 (1714 days ago) QTY: 90, Refills: 2, Sig: take 1 tablet by mouth every day (changed but equivalent) -> The requested strength (5 mg oral tablet) was last ordered on 12/24/2015. The patient is taking 10 mg oral tablet as of 12/07/2017. -> This medication was discontinued on 06/09/2016 by GAGANDEEP MICHAUD. -> K is overdue (performed over 21 months ago, required every 12 months) Last qualifying visit: 06/09/2020 (with GAGANDEEP MICHAUD) Next scheduled visit: None Cr: 0.8 mg/dL on 12/04/2019 K: 5 mEq/L on 11/28/2018 Powered by Perfect Channel by KaritKarma, Reference: [id number], 09/02/2020 1:16:41 PM CDT, Pool:MANUEL REFILL ([id number]) metFORMIN (GLUCOPHAGE) 1000 MG tablet [Pharmacy Med Name: metFORMIN HCl 1000 MG Tablet] Medication started: 12/09/2014 Last ordered by GAGANDEEP MICHAUD: 07/18/2015 (1873 days ago) QTY: 180, Refills: 0, Sig: take 1 tablet by mouth 2 times daily (with meals). (changed but equivalent) -> The requested strength (1000 mg oral tablet) was last ordered on 07/18/2015. The patient is taking 500 mg oral tablet as of 01/09/2020. -> This medication was discontinued on 07/22/2015. -> HBA1C is abnormal (11.3 % is greater than 7.9 %) -> Refill x 3 months (until due for a(n) Cr check and HBA1C check) Last qualifying visit: 06/09/2020 (with GAGANDEEP MICHAUD) Next scheduled visit: None Cr: 0.8 mg/dL on 12/04/2019 HBA1C: 11.3 % on 12/04/2019 Powered by Perfect Channel by KaritKarma, Reference: [id number], 09/02/2020 1:16:41 PM CDT, Pool:MANUEL MOORE ([id number]) documented in this encounter Plan of Treatment Not on filedocumented as of this encounter Visit Diagnoses Not on filedocumented in this encounter Care Teams Real Estate Broker Associate Relationship Specialty Start Date End Date Gagandeep Michaud MD PCP - General 05/17/[address] [place] [address] [place] [address] Vane Zarate Psychiatrist Psychiatry 03/22/12 [facility] Mental [facility] Psychotherapist 08/04/17 [facility] Government Sales Manager 09/13/17 documented as of this encounter
--- OUTSIDE RECORDS SUMMARY | 2022-02-12 12:00 | XMS_ITS | Encounter Summary ---
:1970 Author Organization [facility] Address [address] [place] [address] Care Team Providers Name Role Phone Gagandeep Michaud MD Primary Care Provider Reason for Visit Reason Onset Date Comments Refill 07/09/2020 insulin aspart (YOEL LOG) 100 UNIT/ML pen injection Encounter Details Date Type Department Care Team Description 07/09/2020 Refill Gagandeep Storm, Rochelle l (insulin aspart Medicine (NOVOLOG) 100 UNIT/ML [address] pen injection) [place] [address] [place] VIGIL [id number] (Wo rk) Social History Tobacco Use Types [...] documented as of this encounter Nursing Notes Alyssa Porter RN - 07/11/2020 12:53 PM CDT Further Assistance Needed on Refill from Clinician RN reviewed. Medication ordered for short term. Medication newly ordered in last 12 months and Please advise if jail supply is appropriate Last qualifying visit: 06/09/2020 (with GAGANDEEP MICHAUD) Next scheduled visit: None HBA1C: 11.3 % on 12/04/2019 Review pended order for accuracy and sign if appropriate and Document if appointment is needed for further refills Requested Prescriptions Pending Prescriptions Disp Refills insulin aspart (NOVOLOG) 100 UNIT/ML pen injection 45 mL Sig: Inject 5-10 Units subcutaneously three times daily before meals. Interface, Out Surescripts Prov Query - 07/09/2020 11:39 AM CDT insulin aspart (NOVOLOG) 100 UNIT/ML pen injection Medication started: 06/18/2020 Last ordered by GAGANDEEP MICHAUD: 06/18/2020 (21 days ago as Sample on 06/18/2020 by SHANIQUA FOREMAN.), Sig: inject 5-10 units subcutaneously three times daily before meals. (unchanged) -> The requested medication was previously set to Sample. -> HBA1C is abnormal (11.3 % is greater than 7.9 %) -> Refill x 6 months (until due for a(n) HBA1C check) -> Calculate the quantity and number of refills manually. Last qualifying visit: 06/09/2020 (with GAGANDEEP MICHAUD) Next scheduled visit: None HBA1C: 11.3 % on 12/04/2019 Powered by Uber, Reference: [id number], 07/09/2020 11:39:43 AM CDT, Pool: PN REFILL WIZARD ADMIN ([id number]) Sruthi Ledesma - 07/09/2020 11:39 AM CDT Medications - Refill Request (able to re-order) Name of prescribing clinician: Gagandeep Michaud MD Additional comments (related to the above concern): For this refill, patient would like it filled at the pharmacy listed in Meds & Orders. (Verify the pharmacy patient would like to use for this request is highlighted in blue in Pharmacy Selection under Meds & Orders) If there are questions regarding your request, is it okay to leave a detailed message on your voicemail? Yes (Advise caller that the PN call back number will end with [phone] or unknown) (Advise caller of turn around time is 2 business days for standard refills and 2 to 5 business days for controlled refills) Please route to: Refill Pool (P [id number]) [facility] FP Pool [place] Patients ONLY (P [id number]) [facility] Laguerre ONLY (P [id number]) documented in this encounter Plan of Treatment Not on filedocumented as of this encounter Visit Diagnoses Diagnosis Uncontrolled type 2 diabetes mellitus wi th hyperglycemia (HRC) documented in this encounter Care Teams Lead Worker Of Housekeeping And Laundry Relationship Specialty Start Date End Date Gagandeep Michaud MD PCP - General 05/17/12 1415 [facility] [place] [address] Vane Zarate Psychiatrist Psychiatry 03/22/12 [facility] Psychotherapist 08/04/17 [facility] Tier In 09/13/17 documented as of this encounter
--- OUTSIDE RECORDS SUMMARY | 2022-02-12 12:00 | XMS_ITS | Encounter Summary ---
:1970 Author Organization [employer] Address [address], [place] [address] Care Team Providers Name Role Phone Gagandeep Hinojosa MD Primary Care Provider Reason for Visit Reason Comments Patient Care Coordination Encounter Details Date Type Department Care Team Description 07/17/2020 Care Coord [facility] Deborah Rodrigues Patien t Care Phone Medicine PALLETIZER OPERATOR Coordination [facility] [place] [address] [place] [address] [phone] Social History Tobacco Use Types Packs/Day Years [...] encounter Nursing Notes Deborah Rodrigues LICSW - 07/17/2020 9:31 AM CDT House Builder - Phone Call Contact with: KARLEY Easton CM, Dave Reason for call: Care Coordination Discussion/actions: Spoke with Rustam regarding his insulin supplies. We will get him supplies when he is moved into stable housing. Rustam said that he will be moving to [facility] in [place] and is on top of the world about this. He is looking forward to being more central. He completed his [place] Choice Assessment on 07/11 and will have to go on waiver services before he can move.Rustam agreed to keep me updated if he needed anything. Spoke to Rustam's CM, Han, who confirmed the above information. He denied needing any care coordination assistance at this time, but would call if he needed anything. Shared plan: -Care Coordination follow-up as needed. Pt verbalized understanding and agreed with plan of care and follow up. documented in this encounter Plan of Treatment Not on filedocumented as of this encounter Visit Diagnoses Diagnosis Health residential, active care coordinati on - Primary documented in this encounter Care Teams Inspector Golf Ball Relationship Specialty Start Date End Date Gagandeep Hinojosa MD PCP - General 05/17/12 [address] [place] [address] Vane Zarate Psychiatrist Psychiatry 03/22/12 [facility] Mental Health Psychotherapist 08/04/17 [facility] CM Manager Of Selection And Assessment 09/13/17 documented as of this encounter
--- OUTSIDE RECORDS SUMMARY | 2022-02-12 12:00 | XMS_ITS | Encounter Summary ---
:1970 Author Organization [facility] Address [address] [place] [address] Care Team Providers Name Role Phone Gagandeep Michaud MD Primary Care Provider Reason for Visit Reason Comments Refill amLODIPine (NORVASC) 5 MG ta blet [Pharmacy Med Name: amLODIPine Besylate 5 MG Tablet] Encounter Details Date Type Department Care Team Description 09/02/2020 Refill Gagandeep Storm, Refil l (amLODIPine Medicine (NORVASC) 5 MG tablet [address] [facility] [address] [Pharmacy Med Name: [place] [address] [place] [address] amLODIPine Besylate 5 MG [phone] (Wo rk) Tablet]) Social History Tobacco Use Types Packs/Day [...] documented as of this encounter Nursing Notes Mendy Nieves RN - 09/04/2020 4:56 PM CDT Requested Prescriptions Refused Prescriptions Disp Refills ??? amLODIPine (NORVASC) 5 MG tablet [Pharmacy Med Name: amLODIPine Besylate 5 MG Tablet] 90 Tablet 3 Sig: TAKE 1 TABLET BY MOUTH DAILY Refused By: MENDY NIEVES Reason for Refusal: Med replaced or stopped Confirmed current dose of Amlodipine 10 mg once daily with patient and LTC facility. Merlyn Urias RN - 09/04/2020 4:30 PM CDT Further Assistance Needed on Refill from Nursing/Triage Please clarify how patient is taking medication. 10 mg on active med list Next steps: Nursing/Triage to complete refill as appropriate. Requested Prescriptions Pending Prescriptions Disp Refills amLODIPine (NORVASC) 5 MG tablet [Pharmacy Med Name: amLODIPine Besylate 5 MG Tablet] 90 Tablet 3 Sig: TAKE 1 TABLET BY MOUTH DAILY Interface, Out Surescripts Prov Query - 09/02/2020 1:07 PM CDT amLODIPine (NORVASC) 5 MG tablet [Pharmacy Med Name: amLODIPine Besylate 5 MG Tablet] -> The requested strength (5 mg oral tablet) has not been ordered recently. The patient is taking 10 mg oral tablet as of 12/04/2019. -> Refill x 12 months, qty: 90, refills: 3 (until due for an office visit) Last qualifying visit: 06/09/2020 (with GAGANDEEP MICHAUD) Next scheduled visit: None Powered by [email or web address] by Pipewise, Reference: [id number], 09/02/2020 1:07:36 PM CDT, Pool:MANUEL LANDAILL ([id number]) documented in this encounter Plan of Treatment Not on filedocumented as of this encounter Visit Diagnoses Not on filedocumented in this encounter Care Teams Oxidation Engineer Relationship Specialty Start Date End Date Gagandeep Michaud MD PCP - General 05/17/12 [address] [facility] [place] [address] Vane Zarate Psychiatrist Psychiatry 03/22/12 [facility] Mental Health Psychotherapist 08/04/17 [facility]ice Home Care Coordinator 09/13/17 documented as of this encounter
--- OUTSIDE RECORDS SUMMARY | 2022-02-12 12:00 | XMS_ITS | Encounter Summary ---
:1970 Author Organization [facility] [facility] Address [address], [place] [address] Care Team Providers Name Role Phone Gagandeep Hinojosa MD Primary Care Provider Encounter Details Date Type Department Care Team Description 08/18/2020 Orders Only Initial Department Provider, Magda, [facility] YADY JEFFRIES MD [place], [place] [address] Interface provider [phone] [place] [address] Social History Tobacco Use Types Packs/Day Years [...] on file documented as of this encounter Plan of Treatment Not on filedocumented as of this encounter Procedures Procedure Name Priority Date/Time Associated Diagnosis Comme nts IMAGING 08/18/2020 documented in this encounter Results IMAGING (08/18/2020) Anatomical Region Laterality Modality Other Narrative This result has an attachment that is no t available. Interface Provider DUMMY/OTHER/AR documented in this encounter Visit Diagnoses Not on filedocumented in this encounter Care Teams Express Manager Relationship Specialty Start Date End Date Gagandeep Hinojosa MD PCP - General 05/17/12 [address] [place] [address] Vane Zarate Psychiatrist Psychiatry 03/22/12 [facility] Psychotherapist 08/04/17 [facility] Carbonizer 09/13/17 documented as of this encounter
--- OUTSIDE RECORDS SUMMARY | 2022-02-12 12:00 | XMS_ITS | Encounter Summary ---
:1970 Author Organization [employer] Address [address] [place] [address] Care Team Providers Name Role Phone Gagandeep Michaud MD Primary Care Provider Reason for Visit Reason Comments Refill Lasix Encounter Details Date Type Department Care Team Description 09/02/2020 Refill [facility] Gagandeep Michaud MD Refill (Lasix) [address] [facility] . [address] [place] [address] [place], [place] [id number] (Wo rk) Social History Tobacco Use Types [...] Notes Jose M Plaza RN - 09/05/2020 8:42 AM CDT Spoke with pt. States already with a different provider through [place] as he moved to [place] now. Will request refills through new provider. No other requests. Abbie Mitchell RN - 09/05/2020 5:11 AM CDT Further Assistance Needed on Refill from Nursing/Triage Medication is not listed in patient's medication history. Please see other refill encounters requiring triage. Next steps: Nursing/Triage to complete refill as appropriate. Requested Prescriptions Pending Prescriptions Disp Refills ??? furosemide (LASIX) 20 MG tablet [Pharmacy Med Name: Furosemide 20 MG Tablet] 90 Tablet 0 Sig: TAKE 1 TABLET BY MOUTH EVERY MORNING Interface, Out First Coverage Prov Query - 09/02/2020 1:14 PM CDT furosemide (LASIX) 20 MG tablet [Pharmacy Med Name: Furosemide 20 MG Tablet] -> The medication cannot be found in the patient's medication history. -> K and Na are overdue (performed over 21 months ago, required every 12 months) Last qualifying visit: 06/09/2020 (with GAGANDEEP MICHAUD) Next scheduled visit: None Cr: 0.8 mg/dL on 12/04/2019 Na: 135 mEq/L on 11/28/2018 K: 5 mEq/L on 11/28/2018 Powered by [employer], Reference: [id number], 09/02/2020 1:14:54 PM CDT, Pool: MANUEL LANDAILL ([id number]) documented in this encounter Plan of Treatment Not on filedocumented as of this encounter Visit Diagnoses Not on filedocumented in this encounter Care Teams Area Manager Relationship Specialty Start Date End Date Gagandeep iMchaud MD PCP - General 05/17/12 [address] [facility] [place] [address] Vane Zarate Psychiatrist Psychiatry 03/22/12 [facility] Mental Health Psychotherapist 08/04/17 [facility] Inspector [employer] 09/13/17 documented as of this encounter
--- OUTSIDE RECORDS SUMMARY | 2022-02-12 12:00 | XMS_ITS | Encounter Summary ---
:1970 Author Organization [facility] Address [address] [place] [address] Care Team Providers Name Role Phone Gagandeep Michaud MD Primary Care Provider Reason for Visit Reason Comments Refill metFORMIN (GLUCOPHAGE) 1000 MG tablet [Pharmacy Med Name: metFORMIN HCl 1000 MG Tablet]; lisinopril (ZEST RIL) 5 MG tablet [Pharmacy Med Name: Lisinopril 5 MG Tablet] Encounter Details Date Type Department Care Team Description 09/02/2020 Refill [place] [facility] Gagandeep Michaud, Refil l (metFORMIN Medicine MD (GLUCOPHAGE) [address] tablet [[place] [address] [place] [address] Name: metFORMIN HCl [phone] (Wo rk) MG Tablet]; lisinopril (ZESTRIL) 5 [...] documented as of this encounter Nursing Notes Abbie Mitchell RN - 09/04/2020 8:07 AM CDT Further Assistance Needed on Refill from Clinician Signed order needed. Requested medication needs an order signed by an authorized prescriber. Pharmacy requesting different size pen needle. Last qualifying visit: 06/09/2020 (with GAGANDEEP MICHAUD) Next scheduled visit: None Review pended order for accuracy and sign if appropriate. Close encounter OR document if lab / appointment is needed for further refills and route to Front Line for scheduling Requested Prescriptions Pending Prescriptions Disp Refills ??? NOVOFINE 30 30G X 8 MM [Pharmacy Med Name: NovoFine Autocover 30G X 8 MM Miscellaneous] 400 Each3 Sig: USE DIRECTED WITH INSULIN PENS Interface, Out Surescripts Prov Query - 09/02/2020 4:39 PM CDT NOVOFINE 30 30G X 8 MM [Pharmacy Med Name: NovoFine Autocover 30G X 8 MM Miscellaneous] -> The requested strength (30g x 8 mm misc) has not been ordered recently. The patient is taking 32g x 4 mm misc as of 05/27/2020. -> Refill x 12 months (until due for an office visit) -> Calculate the quantity and number of refills manually. Last qualifying visit: 06/09/2020 (with GAGANDEEP MICHAUD) Next scheduled visit: None Powered by [employer] by [employer], Reference: [id number], 09/02/2020 4:39:03 PM CDT, Pool:MANUEL MOORE ([id number]) documented in this encounter Plan of Treatment Not on filedocumented as of this encounter Visit Diagnoses Not on filedocumented in this encounter Care Teams Oncology Technician Relationship Specialty Start Date End Date Gagandeep Michaud MD PCP - General 05/17/12 [address] [facility] Joseelvira [place] [address] Vane Zarate Psychiatrist Psychiatry 03/22/12 [facility] Health Psychotherapist 08/04/17 [facility] Ophthalmic Pathologist 09/13/17 documented as of this encounter
--- OUTSIDE RECORDS SUMMARY | 2022-02-12 12:00 | XMS_ITS | Encounter Summary ---
:1970 Author Organization [employer] Address [address], [place] [address] Care Team Providers Name Role Phone Gagandeep Hinojosa MD Primary Care Provider Reason for Visit Reason Comments Patient Care Coordination Encounter Details Date Type Department Care Team Description 09/02/2020 Care Coord [facility] Deborah Rodrigues Patien t Care Phone Medicine SENIOR ACCOUNTING ANALYST Coordination [facility] [place] [address] [place] [address] [phone] Social History Tobacco Use Types Packs/Day Years [...] encounter Nursing Notes Deborah Rodrigues LICSW - 09/02/2020 2:43 PM CDT Rustam called to check-in. He called two times over the weekend and left lengthy messages, stating that he was hypomanic. Rustam also said that the insulin that was obtained by RN CC is no longer needed, as he has plenty at his assisted living and they will not use it. He requested we return it. [place] that he would not be coming up to the [facility] anytime soon, and that things in [place] are going well. Rustam denied any immediate concerns. Called Rustam back and left him a message, will wait to hear back from him. documented in this encounter Plan of Treatment Not on filedocumented as of this encounter Visit Diagnoses Diagnosis Health correction, active care coordinati on - Primary documented in this encounter Care Teams Pilates Instructor Relationship Specialty Start Date End Date Gagandeep Hinojosa MD PCP - General 05/17/[address] [place] [address] [place] VELAZQUEZ [address] Vane Zarate Psychiatrist Psychiatry 03/22/12 [facility] Psychotherapist 08/04/17 [facility] Automobile Rental Clerk 09/13/17 documented as of this encounter
--- OUTSIDE RECORDS SUMMARY | 2022-02-12 12:00 | XMS_ITS | Clinical Summary ---
:1970 Author Organization [employer] [facility] [employer] [place] [address] Care Team Providers Name Role Phone Glenys Alcantar MD Unavailable [facility] [place] Unavailable Zhane Stanley DO Primary Care Provider Samantha Minaya PharmD Unavailable Allergies Active Allergy Reactions Severity Noted Date Comments Aripiprazole 06/09/2008 Tardive dyskins ia Aripiprazole *Unknown 12/27/2020 Bupropion Nausea Only, Anxiety 04/29/2017 Ziprasidone Mesylate 03/15/2009 Tardive dyskinsia Haloperidol 02/13/2007 Tardive dyskins ia Clonazepam Other - Describe In 08/11/2021 Neurolep tic shock Comment Field Thiothixene 02/13/2007 Tardive dyskins ia Nitroglycerin Nausea And Vomiting Medium 04/09/2013 Trifluoperazine Tremors 03/15/2009 Confusion, h eart palpitations Ziprasidone *Unknown 03/15/2009 Tardive dyskins ia Medications Medication Sig Dispensed Refills Start End Status Date Date risperiDONE Take 1 Tablet 60 Tablet 0 09/11/19 Acti ve (RISPERDAL) 3 mg (3 mg) by mouth 21 tabletIndications: 2 times daily. Bipolar affective disorder, manic, severe, with psychotic behavior (HC) busPIRone (BUSPAR) Take 3 Tablets 60 Tablet 0 09/19/19 Active 10 mg (30 mg) by 21 tabletIndications: mouth 3 times Bipolar affective daily. disorder, manic, severe, with psychotic behavior (HC) Diabetic As directed. 2 2 Each 0 09/19/19 Activ e ShoeIndications: diabetic shoes 21 Type 2 diabetes mellitus with hyperglycemia, with long-term current use of insulin (HC) mineral Apply topically 300 g 1 09/19/19 Acti ve oil-hydrophil to affected 21 petrolat (Aquaphor) area(s) 2 times ointIndications: daily. Cracked skin on feet divalproex *HAZARDOUS 112 tablet. 12 09/27/19 Active (DEPAKOTE) 500 mg DRUG* TAKE 2 21 Delayed-Release TABLETS BY tabletIndications: MOUTH TWICE Bipolar affective DAILY disorder, manic, severe, with psychotic behavior (HC) Comp As directed. 1 Each 1 09/27/19 Active Stocking,Knee,Regula 21 r,Sml miscIndications: Bilateral lower extremity edema ammonium lactate 12% Apply topically 1 Tube 0 10/03/19 Active (LACHYDRIN) 12 % to affected 21 creamIndications: area(s) 2 times Callus of foot daily. milk of magnesia Take 15-30 mL 0 Active (MOM) 400 mg/5 mL by mouth once suspension daily if needed. diphenhydrAMINE Take 1-2 0 Acti ve (BENADRYL) 25 mg Tablets by tablet mouth every 8 hours. PRN allergies acetaminophen Every 4 Hours 0 Ac tive (TYLENOL) 325 mg as needed tablet ibuprofen (ADVIL; Every 6 Hours 0 Active MOTRIN) 200 mg as needed tablet guaiFENesin Every 4 Hours 0 Acti ve (ROBITUSSIN) 100 as needed mg/5 mL liquid loperamide (IMODIUM) As Needed 0 Active 2 mg capsule aluminum-magnesium Four Times 0 Active hydroxide-simethicon Daily as needed e (MAALOX PLUS; MYLANTA) polyethylene glycoL Mix 1 scoop (17 0 10/03/19 Active (MIRALAX) 17 g) in liquid 21 gram/dose powder then take by mouth once daily if needed for Constipation. multivitamin (MVI) Take 1 Tablet 0 12/05/19 Active tablet by mouth once 21 daily. melatonin 5 mg Take 1 Capsule 0 12/05/19 Active capsule (5 mg) by 21 mouth. gabapentin TAKE 1 CAPSULE 270 Capsule 3 12/19/19 Ac tive (NEURONTIN) 300 mg BY MOUTH 3 21 capsuleIndications: TIMES DAILY Diabetic ulcer of toe of right foot associated with type 2 diabetes mellitus, limited to breakdown of skin (HC), Diabetic peripheral neuropathy (HC) ALPRAZolam (XANAX) Take 0.5 mg by 0 01/06/20 Active 0.5 mg tablet mouth 3 times 21 daily. Dextromethorphan HBr Every 4-6 Hours 0 Active 15 mg/5 mL liqd as needed ondansetron (ZOFRAN Place 1 Tablet 30 Tablet 0 03/09/20 Active ODT) 4 mg (4 mg) on the 21 disintegrating tongue every 8 tabletIndications: hours if needed Nausea for Nausea/Vomiting . metFORMIN TAKE 1 TABLET 56 tablet. 12 04/08/20 Activ e (GLUCOPHAGE) 1,000 BY MOUTH TWICE 21 mg DAILY WITH tabletIndications: MEAL(S) Controlled type 2 diabetes mellitus without complication, unspecified whether mcfp insulin use (HC) polyethylene Drink up to 7 8000 mL 0 07/11/19 Act adithya glycol-electrolyte liters the day 22 (GOLYTELY) before [id number] -5.86 colonoscopy gram (until no suspensionIndication liquid or solid s: Encounter for stool is seen) screening and 1 liter 6 colonoscopy hours before colonoscopy appointment lancets (Accu-Chek Dispense item 300 Each 3 07/20/19 Active Softclix covered by pt 22 Lancets)Indications: ins. E11.9 IDDM Type 2 diabetes type II - Test mellitus with 3 times/day. diabetic polyneuropathy, with long-term current use of insulin (HC) QUEtiapine Take 200 mg by 0 07/15/19 Acti ve (SEROQUEL) 200 mg mouth once 22 tablet daily in the afternoon. RisperDAL Consta 37.5mg/2ml 0 07/25/19 Ac tive 37.5 mg/2 mL injection every 22 injection 2 weeks blood-glucose Dispense meter, 1 Kit 0 09/03/19 Active meterIndications: test strips, 22 Type 2 diabetes lancets covered mellitus with by pt ins. hyperglycemia, with E11.65 NIDDM long-term current type II, use of insulin (HC) uncontrolled - Test 4 times/day. Reason: High A1C amLODIPine (NORVASC) Take 2 Tablets 28 tablet. 12 05/17/20 Active 5 mg (10 mg) by 22 tabletIndications: mouth once HTN (hypertension) daily. insulin degludec, Inject 28 units 2 Each 3 09/10/19 Active U-200, (TRESIBA) 200 subcutaneous at 22 unit/mL (3 mL) bedtime. penIndications: Type 2 diabetes mellitus with diabetic polyneuropathy, with long-term current use of insulin (HC) aspirin (ECOTRIN) 81 TAKE 1 TABLET 90 Tablet 3 09/25/19 Active mg enteric coated BY MOUTH DAILY 22 tabletIndications: WITH A MEAL HTN (hypertension) metoprolol succinate TAKE 1 TABLET 90 Tablet 2 09/25/19 Active (TOPROL XL) 50 mg BY MOUTH DAILY 22 sustained-release tabletIndications: HTN (hypertension) durable medical One pair of 1 Each 0 09/30/19 Ac tive equipment compression 22 (DME)Indications: stockings Bilateral lower (15-20 mmHg) extremity edema novofine autocover Use as 300 Each 3 10/06/19 A ctive 30 gauge x 1/3 Directed. 22 needleIndications: Type 2 diabetes mellitus with diabetic polyneuropathy, with long-term current use of insulin (HC) Calcium Antacid 200 CHEW 2-4 90 tablet. 3 10/13/19 Active mg calcium (500 mg) TABLETS BY 22 chewable MOUTH BETWEEN tabletIndications: MEALS & AT Chronic GERD BEDTIME NEEDED (STANDING ORDER) rosuvastatin TAKE 1 TABLET 90 Tablet 0 10/22/19 Act adithya (CRESTOR) 20 mg BY MOUTH EVERY 22 tabletIndications: NIGHT AT CAD in [place] artery BEDTIME FreeStyle Bharath 2 To be used to 1 Each 0 11/21/19 Active ReaderIndications: read blood 22 Type 2 diabetes sugars per mellitus with health services director's diabetic directions. polyneuropathy, with long-term current use of insulin (HC) FreeStyle Bharath 2 Change sensor 6 Each 3 11/21/19 Active SensorIndications: every 14 days 22 Type 2 diabetes mellitus with diabetic polyneuropathy, with long-term current use of insulin (HC) Jardiance 10 mg TAKE 1 TABLET 60 Tablet 0 12/18/19 Active tabletIndications: BY MOUTH DAILY 22 Positive for macroalbuminuria insulin aspart, 10 units of 30 mL 0 01/01/20 Ac tive U-100, (NOVOLOG Novolog with 22 FLEXPEN) 100 unit/mL meals. Sliding (3 mL) scale as penIndications: Type follows: 2 diabetes mellitus 150-199 (add 2 with diabetic units), 200-249 polyneuropathy, with (add 3 units), long-term current 250-299 (add 4 use of insulin (HC) units), 300-349 (add 5 units), 350-399 (add 6 units), 400+ (add 8 units) nicotine [address] 1 Lozenge 72 Lozenge 5 01/14/20 Active lozengeIndications: (2 mg) in 22 Tobacco use disorder mouth, between cheek & gum every hour while awake as needed for Nicotine Craving. Max 20 doses/day. hydrOXYzine HCL TAKE 1 TABLET 25 Tablet 0 01/21/20 Active (ATARAX) 25 mg BY MOUTH EVERY 22 tabletIndications: 6 HOURS Generalized anxiety NEEDED FOR disorder with panic ANXIETY attacks blood sugar USE TO TEST 400 Each 3 01/30/20 Active diagnostic FOUR TIMES 22 (Accu-Chek Guide DAILY test strips) stripIndications: Type 2 diabetes mellitus with diabetic polyneuropathy, with long-term current use of insulin (HC) eucalyptus-menthoL Dissolve in the 0 02/09/20 Active lozg mouth once 22 daily if needed. ibuprofen (ADVIL; Take 1 Tablet 60 Tablet 3 02/09/20 Active MOTRIN) 200 mg (200 mg) by 22 tabletIndications: mouth every 6 Pain hours. eucalyptus-menthoL Dissolve 1 60 Lozenge 5 02/09/20 Active (Shen Cough Drops) Lozenge in the 22 lozgIndications: mouth 2 times Chronic cough daily if needed (cough or sore throat). famotidine (PEPCID) TAKE 1 TABLET 60 Tablet 0 02/12/20 Active 20 mg BY MOUTH TWICE 22 tabletIndications: DAILY Chronic GERD famotidine (PEPCID) Take 1 Tablet 180 Tablet 3 03/13/2002/11 Discontinued 20 mg (20 mg) by tabletIndications: mouth 2 times Chronic GERD daily. blood sugar Dispense item 300 Each 3 07/20/19 Disc ontinued diagnostic covered by pt 22 022 (Accu-Chek Guide ins. E11.9 IDDM test strips) type II - Test stripIndications: 3 times/day. Type 2 diabetes mellitus with diabetic polyneuropathy, with long-term current use of insulin (HC) hydrOXYzine HCL TAKE 1 TABLET 25 Tablet 0 09/24/19 Discontinued (ATARAX) 25 mg BY MOUTH EVERY 022 (Reorder tabletIndications: 6 HOURS (E-cancel not Generalized anxiety NEEDED FOR sent)) disorder with panic ANXIETY attacks ibuprofen (ADVIL; Take 1 Tablet 0 02/09/20 Discontinued MOTRIN) 200 mg (200 mg) by (Re order tablet mouth every 6 (E-can vik not hours. 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 08/13/2021 edema associated with type 2 diabetes mellitus Diabetic ulcer of toe of left foot associated with ralph betes mellitus due 12/08/2020 to underlying condition, limited to breakdown of skin Cataract of both eyes 07/30/2020 Myopia with astigmatism and presbyopia, bilateral 10/2020 Diabetes mellitus type 2, uncontrolled, with complicat ions 07/14/2020 Bipolar affective disorder, current episode mixed 05/2020 Chest pain 06/18/2020 Hyponatremia 06/18/2020 Constipation 05/15/2020 Bipolar affective disorder, current episode hypomanic 05/14/2020 Adjustment disorder with depressed mood 05/14/2020 Lactic acidosis 05/12/2020 Failure to thrive (0-17) 05/12/2020 Hyperglycemia 06/17/2019 Personality disorder, unspecified 01/05/2019 Intentional drug overdose 12/20/2018 Vitamin D deficiency 10/25/2018 Generalized anxiety disorder 12/08/2017 Suicidal ideation 11/26/2017 Diabetic ulcer of left midfoot associated with type 2 diabetes mellitus 09/23/2017 Obesity, unspecified 08/08/2011 Seizure disorder 08/07/2011 Diabetes mellitus, type 2 07/04/2011 CAD (coronary artery disease) 07/04/2011 HTN (hypertension) 05/13/2011 Tobacco use disorder 04/29/2011 Hypertriglyceridemia 11/27/2010 Dyslipidemia 11/29/2009 Bipolar affective disorder, manic, severe, with psycho tic behavior 02/13/2007 Resolved Problems Problem Noted Date Resolved Date Type 2 diabetes mellitus without complication 05/12/2020 08/18/2020 Chest pain 06/17/2019 05/12/2020 Bipolar disorder 01/05/2019 05/12/2020 Type II diabetes 01/05/2019 05/12/2020 Hypertension 01/05/2019 05/12/2020 Dyslipidemia 01/05/2019 05/12/2020 CAD (coronary artery disease) 01/05/2019 05/12/2020 Bipolar 1 disorder, depressed, severe 10/17/2018 Chest pain at rest 06/01/2018 05/12/2020 Hyponatremia 11/26/2017 05/12/2020 Leukocytosis 11/26/2017 05/12/2020 Controlled diabetes mellitus type 2 with complications 11/2605/12/2020 Bipolar disorder, current episode mixed, moderate 05/01/2017 05/12/2020 Chest pain, rule out AMI 12/29/2016 05/01/2017 Chest pain on breathing 09/30/2016 05/12/2020 Atypical chest pain 09/18/2014 05/12/2020 Chest pain with high risk for cardiac etiology 09/17/2014 05/07/2016 Acute chest pain 12/18/2013 05/07/2016 Chest pain 09/22/2012 12/18/2013 Chest pain, unspecified 07/04/2011 11/06/2011 Nausea with vomiting 07/04/2011 05/07/2016 Hyperlipidemia LDL goal < 70 07/04/2011 05/01/2017 Chest pain, unspecified 05/13/2011 12/18/2013 Hyponatremia 11/26/2010 05/07/2016 Diabetes mellitus type II 12/21/2009 12/24/2018 Overview: Uncontrolled with last a1c of 10.1 in 2009 a system change updated this record. Thi s will not affect patient care or billing. This comment can be deleted. Chest wall pain - noncardiac 11/07/2009 11/06/2011 Overview: With chest wall tenderness - reproduced on exam as the pain that concerned him enough to come to emergency room (ER). Chest pain, unspecified 10/07/2009 05/13/2011 Hyperglycemia 10/07/2009 05/07/2016 Adjustment disorder with mixed disturbance of emotions and 1 05/12/2020 conduct Obsessive-compulsive disorders 02/13/2007 9 Underdosing of insulin 05/12/2020 Diabetes mellitus type 2 in obese 2020 Type 2 diabetes mellitus with diabetic neuropathy, with 05/12/2020 long-term current use of insulin Encounters Date Type Specialty Care Team Description 02/10/2022 Refill Shaqra, Zhane Анна, Refill Req uest DO (Famotidine) 02/08/2022 Telephone NelsonqZhane sloan Анна, Medication Management DO (ibuprofen clar ification) 02/08/2022 Telephone Shaqra, Zhane Анна, Refill Req uest (Lorain DO Cough Drops - C samra, Ibuprofen Tab 2 00mg ) 01/28/2022 Refill Shaqra, Zhane Анна, Refill Req uest (Accu-chek DO Guide Test Stri ps) 01/19/2022 Refill Shaqra, Zhane Анна, Refill Req uest (HYDROXYZ DO HCL TAB) 01/14/2022 Telephone Sir Stanleyi Анна, Referral DO 01/12/2022 Telephone Sir Stanleyi Анна, orders DO 12/29/2021 Refill Shaqra, Zhane Анна, Refill Req uest (NOVOLOG DO INJFLEX) 12/22/2021 Telephone Keila Diamond NP Appointment 12/21/2021 Office Visit Keila Diamond, MEHUL Consult (LD LS) 12/21/2021 Hospital Encounter Keila Diamond NP Encou nter for screening for malignant neoplasm of lung in current smoker with 30 pack year history or greater; Personal histor y of nicotine dependence 12/21/2021 Travel 12/14/2021 Refill Shaqra, Zhane Анна, Refill Req uest (Jardiance) DO 11/20/2021 Telephone Nelsonqra Zhane Анна, New Med Re quest (Freestyle DO Bharath) from Last 3 Months Immunizations Name Administration Dates Next Due COVID-19 vaccine ([employer] 09/16/2020, 08/26/2020 30mcg/0.3mL) PF, MDV Hepatitis B (Adult) 08/18/2020, 12/18/2018 Influenza RIV4 (Age 18+ Years) 03/02/2021 PRESERV FREE Influenza Virus, Unspecified 08/23/2014, 03/14/2013, 012, 01/26/2011, 03/17/2009, 03/17/2009, 02/27/2007, 02/27/2007, 03/23/2006, 03/23/2006, 05/19/2005, 05/19/2005, 03/12/2002 Influenza, IIV3 (Age 6-35 mos) 02/01/2012, 01/22/2011 Influenza, IIV3 (Age >=3 years) 02/01/2012, 01/26/2011 Influenza, IIV4 01/07/2020, 01/16/2018, 02/16/2017, 02/24/2016, 03/27/2015, 01/16/2014 Influenza, IIV4 (Age 6-35 Mos) 03/14/2013 Pneumococcal Poly,23-Valent 10/08/2009 (Pneumovax) Td (Age >=7 Years) 11/12/1998 Tdap 11/04/2015, 09/15/2005 Tuberculin Skin Test, Unspecified 06/11/2019, 02/05/2016, Family History Medical History Relation Name Comments Alcohol/Drug Father Alcohol Diabetes Father Heart Disease Father Heart attack age 35 Other Father Bone marrow canc er Psychiatric illness Father Depression Psychiatric illness Mother Bipolar Pulmonary fibrosis Mother Alcohol/Drug Sister 1 Alcohol Diabetes Sister 2 Anesthesia Malignant Hyperthermia No Family History Anesthesia Problem No Family History Relation Name Status Comments Father Mother Sister 1 Sister 2 Social History Tobacco Use Types Packs/Day Years Used Date Current Every Day Smoker Cigarettes 1 35 Sta rted: 11/28/1984 Smokeless Tobacco: Never Used Tobacco Cessation: Ready to Quit: Yes; C ounseling Given: Yes Alcohol Use Standard Drinks/Week Comments No 0 (1 standard drink = 0.6 oz pure alcoho l) pt denies Alcohol Habits Answer Date Recorded How often do you have a drink containing alcohol? Not asked How many drinks containing alcohol do you have on a typical Not asked day when you are drinking? How often do you have six or more drinks on one occasion? No t asked Comment: pt denies 06/23/2020 Sex Assigned at Date Recorded Not on file Obstetrics History Last Filed Vital Signs Vital Sign Reading Time Taken Comments Blood Pressure 142/71 12/21/2021 10:56 AM CDT Pulse 68 12/21/2021 10:56 AM CDT Temperature 36.5 ??C (97.7 ??F) 12/21/2021 10:56 AM CDT Respiratory Rate 18 12/21/2021 10:56 AM CDT Oxygen Saturation 99% 12/21/2021 10:56 AM CDT Inhaled Oxygen Concentration - - Weight 98.5 kg (217 lb 3.2 oz) 12/21/2021 10:56 AM CDT Height 176.5 cm (5' 9.49) 08/05/2021 10:42 AM CDT Body Mass Index 31.63 08/05/2021 10:42 AM CDT Plan of Treatment Upcoming Encounters Date Type Specialty Care Team Description 02/15/2022 Office Visit Zhane Stanley , DO [address] [place] [id number] (Wo rk) Health Maintenance Due Date Last Done Comments Pneumococcal series for age 19-64 10/08/2010 10/08/2009 (2 - PCV) Colonoscopy through age 75 2015 Zoster (shingles) series for age 0901/22/2020 50+ (1 of 2) Hepatitis B series for Diabetes (3 12/18/2020 08/18/2020, 0 12/18/2018 of 3 - Risk 3-dose series) COVID-19 vaccine series (5 - 11/26/2021 10/01/2021, 021, Booster for Pfizer series) 09/16/2020, Additiona l history exists Influenza for age 50-64 12/24/2021 03/02/2021, 01/07/2020, 01/16/2018, Additional history exists BMI (ht and wt on same day) for 08/05/2022 08/05/2021, 07/24, age 18+ 07/28/2020, Additional history exists Depression screening for age 12+ 08/12/2022 08/12/2021, , 08/18/2020, Additional history exists Low Dose CT (for lung CA) age 0812/21/2022 12/21/2021, 2016 50-80 Tetanus booster 11/03/2025 11/04/2015, 09/15/2005, 11/12/1998 Lipids for age 45-75 03/12/2026 03/12/2021, 06/26/2020, 10/15/2018, Additional history exists Tdap Completed 11/04/2015, 09/15/2005 Hepatitis C screening for age Completed 06/25/2020 18-79 Procedures Procedure Name Priority Date/Time Associated Diagnosis Comme nts CT CHEST SCREENING Routine 12/21/2021 11:32 AM Encounter for R esults for this LOW DOSE WO CDT screening for procedure are in CONTRAST malignant neoplasm the resul ts of lung in current section. smoker with 30 pack year history or greater Personal history of nicotine dependence from Last [address] CHEST SCREENING LOW DOSE WO CONTRAST (12/21/2021 11:32 AM CDT) Anatomical Region Laterality Modality Computed Tomography Specimen (Source) Anatomical Location Collection Method / Collectio n Time Received Time / Laterality Volume Impressions 12/22/2021 6:42 AM CDT 1. Atherosclerotic disease and coronary artery stent. 2. Minimal paraseptal emphysema. Lung rads category 1: No pulmonary nodul es. Recommend continued annual screening with LD CT in 12 months. Please note that all CT scans at this [facility] use dose modulation, iterative reconstruction and/or weight-b ased dosing when appropriate to reduce radiation dose to as low as reaso nably achievable. ?? Dictated by: Franck Jean MD @12/21/2021 11:48 :28 AM/jsb Narrative 12/22/2021 6:42 AM CDT For Patients: As a result of the Century Cures Act, medical imaging exams and procedure reports are released immediately into your electronic medical record. ??You may view this repo rt before your referring provider. ?? If you have questions, please contact [facility] health care provider. CT CHEST SCREENING LOW-DOSE WITHOUT CONT RAST 12/21/2021 INDICATION: Lung cancer screening TECHNIQUE: CT chest without contrast. COMPARISON: None FINDINGS: Cardiovascular structures: Heart size is normal. Thoracic aorta and main pulmonary artery are normal in caliber. Atherosclerotic calcification of the coronary arteries and coronary arter y stent. Mediastinum and shawanda: Pretracheal lymph node measuring 9 mm in short axis. No sign of mass or significant adenopath y. Lungs: Minimal paraseptal emphysema LEFT lung apex and LEFT lung base with minimal scarring at the LEFT lung base. No pulmonary nodules, mass or consolidation. The airways are clear. Pleura and pericardium: No effusions. Chest wall and axilla: No mass or adenop athy. Bones: Spine findings suggestive of DISH . Upper abdomen: Unremarkable. Keila Diamond PRESCHOOL PROGRAM DIRECTOR CT from Last 3 Months Insurance Payer Benefit Plan / Subscriber ID Effective Dates Phone Addre ss Type Group MEDICARE PART A MEDICARE PART [id number] 1995-Presen ATTN: CLAIMS - HB USE ONLY A HB ONLY t [address] [place] [address] MEDICARE PART B MEDICARE PART [id number] 2009-Presen ATTN: CLAIMS - HB USE ONLY B HB ONLY t [address] [place] [address] MEDICARE - PB MEDICARE PB [id number] 2009-Presen ATTN : CLAIMS USE ONLY ONLY t [address] [place] [address] MEDICARE PPS HC MEDICARE [id number] 1995-Presen [address] [place] [address] [place]ICAID [place] [id number] 2020-Presen [address] [place] [address] Advance Directives Documents on File Type Date Recorded Patient Melter Operator Explanati on POLST 08/20/2020 5:18 PM POLST - 1 Latest Code Status on File Code Status Date Activated Date Inactivated Comments Full Code 06/23/2020 2:51 PM 07/01/2020 12:37 PM Code Status Discussion: Not Discussed Full Code 06/18/2020 7:15 PM 06/19/2020 4:44 PM Code Status Discussion: Discussed Full Code 05/12/2020 1:00 PM 05/20/2020 7:40 PM Code Status Discussion: Discussed Full Code 06/17/2019 7:30 PM 06/18/2019 7:31 PM Full Code 01/04/2019 8:41 PM 01/13/2019 4:30 PM Code Status Discussion: Not Discussed Care Teams Video Control Operator Relationship Specialty Start Date End Date Zhane Stanley DO PCP - General Internal Medicine 09/08/20 [address] [place] [address] Glenys Alcantar MD Endocrinology 05/03/17 [address] [place] [address] [facility], 05/21/20 [place] Samantha Minaya, Pharmacist Medication Pharmacology 10/21/20 PharmD Management [address] [place], [place] [id number]
--- OUTSIDE RECORDS SUMMARY | 2022-02-12 12:00 | XMS_ITS | Clinical Summary ---
:1970 Author Organization [facility] Address [address], [place] [address] Care Team Providers Name Role Phone Gagandeep Hinojosa MD Primary Care Provider Source Comments You are receiving this document as you are listed as the primary care provider,follow-up provider, or the patient has been referred to you for consultation.This is in compliance with the Medicare and Medicaid EHR Incentive Program,which states Providers who transition their patient to another setting of careor provider of care or refers their patient to another provider of care shouldprovide summarycare record for each transition of care or referral. [place] Allergies Active Allergy Reactions Severity Noted Date Comments Aripiprazole 03/07/2013 permanent shaki ng in left arm Gabapentin 06/29/2016 Suicidal though ts Other reaction( s): Other - Describe In Com ment Field Suicidal ideati on Haloperidol Shock 07/10/2002 Nitroglycerin Nausea And Vomiting 01/10/2014 Thiothixene Other, see comments 07/10/2002 Muscle s pasm Trifluoperazine 03/15/2009 Confusion, h eart palpitations Bupropion Anxiety 04/29/2017 Ziprasidone 03/15/2009 Tardive dyskins ia Medications Medication Sig Dispensed Refills Start Date End Date Status aspirin 81 MG chewable TAKE 1 TABLET 100 tablet 1 08/13/2011 Active tablet BY MOUTH DAILY . ONE TOUCH ULTRA 2 Use to test 4 1 Each 0 06/09/2016 Active meterIndications: times a day. Uncontrolled type 2 diabetes mellitus with diabetic polyneuropathy, with long-term current use of insulin ONETOUCH ULTRA CONTROL Use to test as 1 Each 11 06/09/2016 Active solutionIndications: needed. Uncontrolled type 2 diabetes mellitus with diabetic polyneuropathy, with long-term current use of insulin multivitamin (THERAGRAN) Take 1 Tablet 0 Active tablet by mouth. divalproex (DEPAKOTE DR) Take 1,000 mg 0 Active 250 MG enteric coated by mouth two tablet times a day. levOCARNitine (CARNITOR) TK 3 TS PO QD 5 03/06/2019 Active 330 MG tablet atorvastatin (LIPITOR) Take 1 tablet 90 Tablet 3 08/10/2019 Active 80 MG tabletIndications: by mouth once ASHD (arteriosclerotic daily heart disease) (HRC), Hyperlipidemia with target LDL less than 70 (HRC) Additional Information Patient not taking. Reported on 08/28/2019 glucose 4 gram chewable Chew and swallow 4 30 Tablet 1 020 Active tabletIndications: Tablets by mouth once Hypoglycemia (HRC) as needed (Blood sugar less than 70). insulin degludec 200 UNIT/ML Inject 32 Units 12 mL 0 10/07 Active SOPNIndications: subcutaneously daily. Uncontrolled type 2 diabetes mellitus with hyperglycemia (HRC) amLODIPine (NORVASC) 10 MG Take 1 Tablet by mouth 90 Tablet 3 12/04/2019 Active tabletIndications: Essential daily. hypertension (HRC) Continuous Blood Gluc Sensor Use as directed. Change 6 Each 4 12/04/2019 Active (FREESTYLE TALAT 14 DAY every 14 days. SENSOR) MISCIndications: Uncontrolled type 2 diabetes mellitus with hyperglycemia (HRC) Continuous Blood Gluc Use to scan blood 1 Each 0 12/04/2019 Active Replenishment Specialist (FREESTYLE TALAT 2 sugars per can filling machine operator READER SYSTM) instructions. DEVIIndications: Uncontrolled type 2 diabetes mellitus with hyperglycemia (HRC) metFORMIN (GLUCOPHAGE) 500 Take 2 Tablets by mouth 360 Tablet 3 01/09/2020 Active MG tablet two times a day with meals. busPIRone (BUSPAR) 10 MG Take 3 Tablets by mouth 360 Tablet 3 01/22/2020 Active tabletIndications: Anxiety two times a day for 30 (HRC) days. QUEtiapine (SEROQUEL) 200 MG TAKE ONE TABLET BY 30 Tablet 1 Active tablet MOUTH AT BEDTIME ONETOUCH DELICA Use 1 Each to test 300 Each 3 04/01/2020 Active lancetsIndications: three times a day. Uncontrolled type 2 diabetes mellitus with diabetic polyneuropathy, with long-term current use of insulin blood glucose (ONE TOUCH Use 1 Each to test 300 Strip 3 2019 Active ULTRA BLUE) test three times a day. stripIndications: Pharmacy dispense brand Uncontrolled type 2 diabetes based on insurance. mellitus with ICD-10: E11.29, E11.65, microalbuminuria, with R80.9, Z79.4 long-term current use of insulin divalproex (DEPAKOTE ER) 500 Take 2 Tablets by mouth 120 Tablet 0 05/09/2020 Active MG 24 hour release tablet two times a day. insulin regular (NOVOLIN R) Inject 2 units per 15 10 mL 11 06/07/2020 Active 100 UNIT/ML grams of carb before injectionIndications: meals, at least 6 hours Uncontrolled type 2 diabetes apart.Add Sliding Scale mellitus with complication, +1 unit/50 >150.max is with long-term current use 30 units daily. of insulin Insulin Syringe-Needle U-100 Inject 1 Each 400 Each 3 021 Active (INSULIN SYRINGE 31G X 5/16) subcutaneously 4 times 31G X 5/16 1 MLIndications: a day. Uncontrolled type 2 diabetes mellitus with complication, with long-term current use of insulin benztropine (COGENTIN) 0.5 Take 1 Tablet by mouth 60 Tablet 2 06/09/2020 Active MG tabletIndications: two times a day for 30 Drug-induced extrapyramidal days. movement disorder (HRC) insulin degludec 200 UNIT/ML Inject 32 Units 18 mL 0 06/18 Active SOPNIndications: subcutaneously daily. Uncontrolled type 2 diabetes mellitus with hyperglycemia (HRC) insulin aspart (NOVOLOG) 100 Inject 5-10 Units 45 mL 1 Active UNIT/ML pen subcutaneously three injectionIndications: times daily before Uncontrolled type 2 diabetes meals. mellitus with hyperglycemia (HRC) metoprolol succinate (TOPROL TAKE 1 TABLET BY MOUTH 90 Tablet 3 09/02/2020 Active XL) 50 MG 24 hour release DAILY tabletIndications: Essential hypertension (HRC) risperiDONE (RISPERDAL) 3 MG TAKE 1 TABLET BY MOUTH 60 Tablet 1 09/06/2020 Active tablet TWICE DAILY NOVOFINE 30 30G X 8 MM USE DIRECTED WITH 400 Each 2020 Active INSULIN PENS risperiDONE (RISPERDAL) 3 MG Take 1 Tablet by mouth 180 Tablet 0 09/04/2020 Active tablet two times a day. Active Problems Patient Care Coordination Note Formatting of this note might be differe nt from the original. High School Band Teacher: ERLIN Salas [phone] Care coordination focus: T2DM, financial resources Living situation: lives with spouse Important notes: SSDI, significant insul in resistance, regularly reaches Medicare Coverage Gap and cannot afford insulin Problem Noted Date Non-proliferative diabetic retinopathy 05/02/2019 Hyponatremia 01/16/2018 Tinea versicolor 07/18/2015 Tobacco use disorder 10/26/2012 Anemia 05/02/2012 Overview: Anemia, unspecified Microalbuminuria 02/04/2012 TX, old 09/16/2011 History of PTCA 09/16/2011 Overview: History of PTCA 04/2011 BMS RCA Obesity, Class I, BMI 30-34.9 09/16/2011 Overview: Body mass index is 31.16 kg/(m^2). Hyperlipidemia with target LDL less than 70 06/08/2011 Overview: Hyperlipidemia LDL goal < 70 ASHD (arteriosclerotic heart disease) 05/04/2011 Erectile dysfunction 01/22/2011 Overview: side effect Risperdal Type 2 diabetes mellitus, uncontrolled 12/11/2010 Overview: Type II or unspecified type diabetes jasen litus without mention of complication, uncontrolled (HRC) Dermatophytosis of body 09/04/2010 Overview: Tinea Corporis Coronary atherosclerosis 12/22/2009 Overview: LW Modifier: mod RCA, negative nuclear s tress test ; CAD Nonspecific abnormal results of liver function study 0 12/22/2009 Overview: Liver Function Tests Abnormal Bipolar I disorder 09/15/2005 Overview: LW Onset: [id number] ; Bipolar I Dis Resolved Problems Problem Noted Date Resolved Date Tobacco abuse 02/24/2016 12/18/2018 ACS (acute coronary syndrome) 10/25/2012 02/16/2017 Mass on back 05/02/2012 10/25/2012 Health fpc, active care coordination 03/22/2012 07/27/2018 Overview: High School Band Teacher: JOSETTE Yip [phone] Care coordination focus: T2DM, financial resources Living situation: lives with spouse Important notes: SSDI, significant insul in resistance, uses Relion insulin, commonly reaches Medicare Cover age Gap See care plan under Chart Review > Misc Reports > AMB [facility] CARE PLAN REPORT Last Assessment & Plan: High School Band Teacher: Lesly Rodrigues [facility] [phone] Care coordination focus: mental health Living situation: Lives with Important notes: case management star ting LFTs abnormal 02/02/2012 10/25/2012 S/P angioplasty with stent 05/26/2011 10/25/2012 Overview: Apr 2011 Plantar wart 05/26/2011 10/25/2012 Acute TX 05/01/2011 02/01/2012 Hypertriglyceridemia 12/11/2010 10/25/2012 Overview: >5000 Disorder of lipoid metabolism 12/22/2009 10/25/2012 Overview: Dyslipidemia Painful respiration 12/22/2009 10/25/2012 Overview: Pain Chest Wall Tobacco use disorder 09/29/2002 08/11/2011 Overview: quit Apr 29, 2011 ; Tobacco Abuse Immunizations Name Administration Dates Next Due Flu Vac (3+ yrs) 02/01/2012, 01/26/2011 Flu Vac Preserv Free (3+yrs) 02/01/2012, 01/22/2011, 009, 02/27/2007, 03/23/2006, 05/19/2005 HepB Adult (Engerix-B, 20+ yrs, 3 12/18/2018 dose series) Influenza (Fluzone 0.25, 6-35 mos) 03/14/2013 Influenza IIV4 (Quadrivalent) 0.5mL 01/07/2020, 01/16/2018, 02/16/2017, (26123) 02/24/2016, 03/27/2015, 01/16/2014, 03/14/2013 Influenza, Unspecified Formulation 08/23/2014, 03/14/2013, 1 05/17/2008, 02/27/2007, 03/23/2006, 05/19/2005, 03/12/2002 PPSV23 (Pneumovax) 10/08/2009 TB Skin Test (PPD) 06/11/2019, 02/05/2016, 01/26/2016 TDAP (ADACEL) 09/15/2005 TDAP (BOOSTRIX) 11/04/2015 Td 11/12/1998 Social History Tobacco Use Types Packs/Day Years Used Date Smoking Tobacco: Every Day Cigarettes 1 25 S tarted: 05/17/1984 Smokeless Tobacco: Former Qu it: 10/25/2012 Tobacco Cessation: Counseling Given: No Comments: about 2 cigarettes at most Alcohol Use Standard Drinks/Week Comments No 0 (1 standard drink = 0.6 oz pure Alcoho lic Drinks/day: Amount:0; alcohol) Freq:Never; Sex Assigned at Date Recorded Not on file Last Filed Vital Signs Vital Sign Reading Time Taken Comments Blood Pressure 132/88 06/09/2020 4:43 PM SAFETY SECURITY OFFICER Pulse 99 06/09/2020 4:43 PM SAFETY SECURITY OFFICER Temperature 38.2 ??C (100.8 ??F) 05/02/2019 11:31 AM SAFETY SECURITY OFFICER Respiratory Rate 16 03/07/2013 2:52 PM SAFETY SECURITY OFFICER Oxygen Saturation 97% 10/27/2012 3:52 PM CDT Inhaled Oxygen Concentration - - Weight 88.9 kg (196 lb) 06/09/2020 4:43 PM SAFETY SECURITY OFFICER Height 177.8 cm (5' 10) 12/04/2019 10:49 AM CDT Body Mass Index 28.12 12/04/2019 10:49 AM CDT Plan of Treatment Health Maintenance Due Date Last Done Comments Colon Cancer Screening Plan 1970 Due PSA Screening Discussion 1970 COVID-19 Vaccine (#1) 1970 Pneumococcal (2 - PCV) 10/08/2010 10/08/2009 HepB (2) 01/15/2019 12/18/2018 Diabetes: Foot Exam 07/28/2019 07/27/2018 (Completed), 07/19/2016 Zoster/Shingles (1 of 2) 01/22/2020 Diabetes: HGBA1C 03/05/2020 12/04/2019, 08/28/2019, 11/28/2018, Additional history exists Diabetes: Creatinine 12/03/2020 12/04/2019, 08/28/2019, 11/28/2018, Additional history exists Diabetes: Urine 12/03/2020 12/04/2019, 08/28/2019, Microalbumin 08/15/2017, Additional history exists Medicare Annual Wellness 12/03/2020 12/04/2019 Visit Diabetes: Eye Exam 02/01/2021 02/02/2020 (Completed), 07/25/2017 (Completed), 06/28/2016 (Completed), Additional history exists Influenza (#1) 2021 01/07/2020, 01/16/2018, 02/16/2017, Additional history exists Diabetes: Lipid Panel 12/03/2024 12/04/2019, 08/15/2017, 02/16/2017, Additional history exists DTaP/Tdap/Td (3 - Tdap) 11/03/2025 11/04/2015, 09/15/2005, 11/12/1998 HIV Screening (Preventive Completed 03/12/2002 Services) Hep C Screening (Preventive Completed 03/12/2002 Services) HepA Aged Out No longer eligib le based on patient 's age to complete this topic Hib Aged Out No longer eligib le based on patient 's age to complete this topic IPV (Polio) Aged Out No longer eligib le based on patient 's age to complete this topic MCV4 Aged Out No longer eligib le based on patient 's age to complete this topic Insurance Payer Benefit Plan Subscriber ID Effective Phone Address Typ e / Group Dates MEDICARE MEDICARE [id number] 2009-Pres [facility] care ent SENIOR SENIOR [id number]-Pres [phone] [facility] ent [phone] [employer] [address] [place] [id number] [address] [place] [id number] 2020-Pres [address] [place] icaid [place] [id number] [place] [employer]PR[employer] [place] [place] [address] Yessy Personal/Family Self 1970 [address] (Home) [address] [phone] [place], [place] (Work) [phone] Yessy Personal/Family Self 1970 [address] ([address] [place] [address] [facility] [employer] Employ[employer] c[employer]o [facility] [employer] [address] [place] [id number] Advance Directives Latest Code Status on File Code Status Date Activated Date Inactivated Comments Full Code 10/25/2012 7:32 PM 10/27/2012 6:54 PM Full Code 05/14/2011 11:08 AM 05/14/2011 11:30 PM Full Code 04/30/2011 4:27 AM 05/01/2011 12:21 PM Care Teams Info Specialist Relationship Specialty Start Date End Date Gagandeep Hinojosa MD PCP - General 05/17/12 [address] [facility] [place] [address] Vane Zarate Psychiatrsamantha Psychiatry 03/22/12 [facility] Mental Health Psychotherapist 08/04/17 [facility] Preload Supervisor 09/13/17
--- OUTSIDE RECORDS SUMMARY | 2022-02-12 12:00 | XMS_ITS | Encounter Summary ---
:1970 Author Organization [facility] Address [address] [place] [address] Care Team Providers Name Role Phone Gagandeep Michaud MD Primary Care Provider Reason for Visit Reason Comments Refill metoprolol succinate (TOPROL XL) 50 MG 24 hour release tablet [Pharmacy Med Name: Metoprolol Succinate E R 50 MG Tablet extended release 24 hr] Encounter Details Date Type Department Care Team Description 09/02/2020 Refill Gagandeep Storm, Refil l (metoprolol Medicine MD succinate (TOPROL XL) [address] MG 24 hour release [place] [address] [place] [address] tablet [Pharmacy Med [phone] (Wo rk) Name: Metoprolol Succinate ER 50 [...] encounter Nursing Notes Abbie Mitchell RN - 09/02/2020 1:54 PM CDT Renewed medication per medication refill protocol. Requested Prescriptions Pending Prescriptions Disp Refills metoprolol succinate (TOPROL XL) 50 MG 24 hour release tablet [Pharmacy Med Name: Metoprolol Succinate ER 50 MG Tablet extended release 24 hr] 90 Tablet 3 Sig: TAKE 1 TABLET BY MOUTH DAILY Interface, Out Audanika Query - 09/02/2020 1:16 PM CDT metoprolol succinate (TOPROL XL) 50 MG 24 hour release tablet [Pharmacy Med Name: Metoprolol Succinate ER 50 MG Tablet extended release 24 hr] Medication started: 12/09/2014 Last ordered by GAGANDEEP MICHAUD F: 08/10/2019 (389 days ago) QTY: 90, Refills: 3, Sig: take 1 tablet by mouth once daily (changed but equivalent) -> Refill x 12 months, qty: 90, refills: 3 (until due for an office visit) Last qualifying visit: 06/09/2020 (with GAGANDEEP MICHAUD) Next scheduled visit: None Powered by [email or web address] by [employer], Reference: [id number], 09/02/2020 1:16:41 PM CDT, Pool:MANUEL REFILL ([id number]) documented in this encounter Plan of Treatment Not on filedocumented as of this encounter Visit Diagnoses Diagnosis Essential hypertension (HRC) Unspecified essential hypertension documented in this encounter Care Teams Lace Roller Operator Relationship Specialty Start Date End Date Gagandeep Michaud MD PCP - General 05/17/12 [address] [facility] [place] [id number] Vane Zarate Psychiatrist Psychiatry 03/22/12 [facility] Mental Health Psychotherapist 08/04/17 [facility] Bottomer Operator 09/13/17 documented as of this encounter
--- OUTSIDE RECORDS SUMMARY | 2022-02-12 12:00 | XMS_ITS | Encounter Summary ---
:1970 Author Organization [facility] Address [address], [place] [address] Care Team Providers Name Role Phone Gagandeep Hinojosa MD Primary Care Provider Reason for Visit Reason Comments Patient Care Coordination Encounter Details Date Type Department Care Team Description 09/05/2020 Care Coord [place] [facility] Deborah Rodrigues Patien t Care Phone Medicine [facility] Coordination [facility] [place] [address] [place] [address] [phone] Social History Tobacco Use Types Packs/Day Years [...] encounter Nursing Notes Deborah Rodrigues LICSW - 09/05/2020 1:18 PM CDT Nautical Instrument Mechanic - Phone Call Contact with: Rustam Reason for call: Care Coordination Discussion/actions: Received a phone call from Rustam. He stated that he is seeing a provider in [place] and is planning on following up there. He requested his Dermatology appointment be cancelled at this time. Rustam also said that the insulin samples that he received are not needed anymore. Rustam did agree to continue contact with care coordination, as he is planning on moving back to [facility] after the first of the year. No immediate concerns at this time. Shared plan: -Care Coordination follow-up as needed. Pt verbalized understanding and agreed with plan of care and follow up. documented in this encounter Plan of Treatment Not on filedocumented as of this encounter Visit Diagnoses Diagnosis Health fdc, active care coordinati on - Primary documented in this encounter Care Teams Razor Grinder Relationship Specialty Start Date End Date Gagandeep Hinojosa MD PCP - General 05/17/12 [facility] [facility] [place] [address] Vane Zarate Psychiatrist Psychiatry 03/22/12 [facility] Mental Health Psychotherapist 08/04/17 [facility] French Folding Machine Operator 09/13/17 documented as of this encounter
--- OUTSIDE RECORDS SUMMARY | 2022-02-12 12:00 | XMS_ITS | Encounter Summary ---
:1970 [facility] Address [address] [place] [address] Care Team Providers Name Role Phone Gagandeep Michaud MD Primary Care Provider Reason for Visit Reason Comments Refill NOVOFINE AUTOCOVER PEN NEEDL E 30G X 8 MM [Pharmacy Med Name: NovoFine Autocover Pen Needle 30G X 8 MM Miscellaneous] Encounter Details Date Type Department Care Team Description 09/07/2021 Refill [facility] Gagandeep Michaud, Refil l (NOVOFINE Medicine AUTOCOVER PEN NEEDLE 30G [address] X 8 MM [Pharmacy Med [place] [address] [place] [address] Name: NovoFine Autocover [phone] (Wo rk) Pen Needle 30G X 8 [...] documented as of this encounter Nursing Notes Marci Carrillo RN - 09/11/2021 11:01 AM CDT Requested Prescriptions Refused Prescriptions Disp Refills ??? NOVOFINE AUTOCOVER PEN NEEDLE 30G X 8 MM [Pharmacy Med Name: NovoFine Autocover Pen Needle 30G X8 MM Miscellaneous] 400 Each 3 Sig: USE DIRECTED WITH INSULIN PENS Refused By: MARCI CARRILLO Reason for Refusal: Patient no longer under Provider care Izabella Chin - 09/10/2021 11:44 AM CDT Medication Refill - Overdue for [...] visit Patient no longer receiving care at [facility] Frontline: Route to Refill Wiza Admin Pool-PN (P [id number]) Shayy Haynes RN - 09/10/2021 9:52 AM CDT Further Assistance Needed on Refill from Fiberglass Dowel Drawing Operator Patient is overdue for Office visit. An office visit is overdue (performed over 15 months ago, required every 12 months). Last qualifying visit: 06/09/2020 (with GAGANDEEP MICHAUD) Next scheduled visit: None Please call patient to schedule a Office/Video Visit and document using .JADE. After attemptingto schedule patient: Please route to: Gagandeep Michaud MD Requested Prescriptions Pending Prescriptions Disp Refills NOVOFINE AUTOCOVER PEN NEEDLE 30G X 8 MM [Pharmacy Med Name: NovoFine Autocover Pen Needle 30G X 8 MM Miscellaneous] 400 Each 3 Sig: USE DIRECTED WITH INSULIN PENS Interface, Out Surescripts Prov Query - 09/07/2021 1:41 PM CDT NOVOFINE AUTOCOVER PEN NEEDLE 30G X 8 MM [Pharmacy Med Name: NovoFine Autocover Pen Needle 30G X 8 MM Miscellaneous] Medication started: 07/19/2016 Last ordered by GAGANDEEP MICHAUD: 09/04/2020 (368 days ago) QTY: 400, Refills: 3, Sig: use as directed with insulin pens (unchanged) -> An office visit is overdue (performed over 15 months ago, required every 12 months). Last qualifying visit: 06/09/2020 (with GAGANDEEP MICHAUD) Next scheduled visit: None [employer] Embedded Refills, Reference: [id number], 09/07/2021 1:41:05 PM CDT, Pool: MANUEL REFILL ([id number]) documented in this encounter Plan of Treatment Not on filedocumented as of this encounter Visit Diagnoses Not on filedocumented in this encounter Care Teams Focusing Machine Operator Relationship Specialty Start Date End Date Gagandeep Michaud MD PCP - General 05/17/12 [address] [place] [address] Vane Zarate Psychiatrist Psychiatry 03/22/12 [facility] Psychotherapist 08/04/17 [facility] Employee Operations Examiner 09/13/17 documented as of this encounter
--- OUTSIDE RECORDS SUMMARY | 2022-02-12 12:01 | XMS_ITS | Encounter Summary ---
:1970 Author Organization [facility] Address [address] [address] Care Team Providers Name Role Phone Gagandeep Hinojosa MD Primary Care Provider Reason for Visit Reason Comments Appointment Encounter Details Date Type Department Care Team Description 01/01/2020 Telephone [facility] Gagandeep Hinojosa MD Appointment [address] [facility] . [address] [place] [address] [place] [address] [phone] (Wo rk) Social History Tobacco Use Types Packs/Day Years Used Date Smoking Tobacco: Some Days Cigarettes 0.3 25 L ast attempted to quit: 08/21/2019 Smokeless Tobacco: Former Qu it: 10/25/2012 Comments: about 2 cigarettes at most Alcohol Use Standard Drinks/Week Comments No 0 (1 standard drink = 0.6 oz pure Alcoho lic Drinks/day: Amount:0; alcohol) Freq:Never; Sex Assigned at Date Recorded Not on file documented as of this encounter Nursing Notes Reba Peres RN - 01/01/2020 4:28 PM CDT Spoke to patient, states had genital warts treated on 12/04/19. Was advised to return for additional treatment if warts not resolved. Denies worsening of symptoms, has appointment scheduled. Future Appointments Date Time Provider Department Center 01/02/2020 1:00 PM Judy Pittman RN [facility] 01/07/2020 12:00 PM Gagandeep Hinojosa MD [facility] Sasha Garcia, RN - 01/01/2020 4:16 PM CDT Left message for patient to return call to [phone]. Carolyn Johnson - 01/01/2020 3:58 PM CDT Symptoms Describe your symptoms (if pain, include location): Growth on genitals When did they start? Couple weeks Additional comments (related to the above concern): Not going away If a prescription is needed, patient would like it filled at the pharmacy listed in Meds & Orders. (Verify the pharmacy patient would like to use for this request is highlighted in blue in PharmacySelection under Meds & Orders) Is it okay to leave a detailed message on your voicemail? Yes (Advise caller that the PN call back number will end with [phone] or unknown) For urgent symptoms: Please route and transfer to: Triage Pool (high priority) For routine symptoms: Please route to: Triage Pool (only transfer if caller insists) documented in this encounter Plan of Treatment Not on filedocumented as of this encounter Visit Diagnoses Not on filedocumented in this encounter Care Teams Parliamentary Counsel Relationship Specialty Start Date End Date Gagandeep Hinojosa MD PCP - General 05/17/[address] [place] [address] [place] [address] Vane Zarate Psychiatrist Psychiatry 03/22/12 [facility] Psychotherapist 08/04/17 [facility] Human Projectile 09/13/17 documented as of this encounter
--- OUTSIDE RECORDS SUMMARY | 2022-02-12 12:01 | XMS_ITS | Encounter Summary ---
:1970 Author Organization [facility] Address [address] [place] [id number] Care Team Providers Name Role Phone Gagandeep Hinojosa MD Primary Care Provider Reason for Referral Procedure/Equipment (Routine) - Closed Specialty Diagnoses / Procedures Referred By Contact Refer red To Contact Diagnoses Pain of toe of right foot Closed nondisplaced fracture of proximal phalanx of lesser toe of right foot, initial encounter Gagandeep Hinojosa MD Procedures Walking Boot [address] [place] [address] Referral ID Status Reason Start Date Expiration Date Visits Requ ested Visits Authorized [id number] Closed 03/17/2020 06/16/2021 1 1 L [place] [facility] DR[facility] Procedure/Equipment (Routine) - Incomplete Specialty Diagnoses / Procedures Referred By Contact Refer red To Contact Diagnoses Pain of toe of right foot Gagandeep Hinojosa MD Procedures XR Toe Rt 2nd 3 Views [address] [place] [address] Referral ID Status Reason Start Date Expiration Date Visits V isits Requested Authorized [id number] Incomplete 03/17/2020 06/16/2021 1 1 L [place] [facility] Reason for Visit Reason Comments Diabetes check R foot fell a week ago Encounter Details Date Type Department Care Team Description 03/17/2020 Office Visit Gagandeep Storm Pain of toe of right foot (Primary Dx); Romario Rubio MD Closed nondisplaced fracture of proximal phalanx of lesser toe of right foot, initial encounter; [address] [place] [address] Uncontro lled type 2 diabetes mellitus with complication, with long-term current use of insulin (HRC); [address] Diabetic polyneuropathy associated with type 2 diabetes mellitus (HRC); [place] [id number] [address] Tobacco use disorder [phone] [id number] Social History Tobacco Use Types Packs/Day Years Used Date Smoking Tobacco: Light Smoker Cigarettes 0.3 25 Started: 05/17/1984 Smokeless Tobacco: Former Qu it: 10/25/2012 Comments: about 2 cigarettes at most Alcohol Use Standard Drinks/Week Comments No 0 (1 standard drink = 0.6 oz pure Alcoho lic Drinks/day: Amount:0; alcohol) Freq:Never; Sex Assigned at Date Recorded Not on file documented as of this encounter Last Filed Vital Signs Vital Sign Reading Time Taken Comments Blood Pressure 123/77 03/17/2020 12:59 PM LOCAL [place] [facility] Pulse 81 03/17/2020 12:59 PM LOCAL [place] [facility] Temperature - - Respiratory Rate - - Oxygen Saturation - - Inhaled Oxygen Concentration - - Weight 88.5 kg (195 lb) 03/17/2020 12:59 PM LOCAL [place] [facility] Height - - Body Mass Index 27.98 12/04/2019 10:49 AM CDT documented in this encounter Progress Notes Gagandeep Hinojosa MD - 03/17/2020 1:00 PM CST ICD-10-CM 1. Pain of toe of right foot M79.674 XR Toe Rt 2nd 3 Views Walking Boot 2. Closed nondisplaced fracture of proximal phalanx of lesser toe of right foot, initial encounter S92.514A Walking Boot 3. Uncontrolled type 2 diabetes mellitus with complication, with long-term current use of insulin (HRC) E11.8 E11.65 Z79.4 4. Diabetic polyneuropathy associated with type 2 diabetes mellitus (HRC) E11.42 5. Tobacco use disorder (HRC) F17.200 CHIEF COMPLAINT: Chief Complaint Patient presents with ??? Diabetes check R foot fell a week ago SUBJECTIVE : Timur Krishnamurthy is an 50 y.o. male who presents for bruising of his right 2nd toe. Patient fell out of bed earlier this week and injured his 2nd toe with subsequent bruising of the midportion of the phalanx. He has diabetic neuropathy and does not feel any pain in his foot. PROBLEM LIST: Patient Active Problem List Diagnosis Date Noted ??? Non-proliferative diabetic retinopathy (PSYCHIATRIC) 05/02/2019 ??? Hyponatremia 01/16/2018 ??? Tinea versicolor 07/18/2015 ??? Tobacco use disorder (PSYCHIATRIC) 10/26/2012 ??? Anemia 05/02/2012 Overview Note: Anemia, unspecified ??? Microalbuminuria 02/04/2012 ??? CT, old (PSYCHIATRIC) 09/16/2011 ??? History of PTCA 09/16/2011 Overview Note: History of PTCA 04/2011 BMS RCA ??? Obesity, Class I, BMI 30-34.9 (PSYCHIATRIC) 09/16/2011 Overview Note: Body mass index is 31.16 kg/(m^2). ??? Hyperlipidemia with target LDL less than 70 (PSYCHIATRIC) 06/08/2011 Overview Note: Hyperlipidemia LDL goal < 70 ??? ASHD (arteriosclerotic heart disease) (PSYCHIATRIC) 05/04/2011 ??? Erectile dysfunction 01/22/2011 Overview Note: side effect Risperdal ??? Type 2 diabetes mellitus, uncontrolled (PSYCHIATRIC) 12/11/2010 Overview Note: Type II or unspecified type diabetes mellitus without mention of complication, uncontrolled (PSYCHIATRIC) ??? Dermatophytosis of body 09/04/2010 Class: Historical Overview Note: Tinea Corporis ??? Coronary atherosclerosis (PSYCHIATRIC) 12/22/2009 Overview Note: LW Modifier: mod RCA, negative nuclear stress test ; CAD ??? Nonspecific abnormal results of liver function study 12/22/2009 Overview Note: Liver Function Tests Abnormal ??? Bipolar I disorder (PSYCHIATRIC) 09/15/2005 Overview Note: LW Onset: ; Bipolar I Dis FAMILY HISTORY OR SICK CONTACTS : History reviewed. No pertinent family history. SOCIAL HISTORY : Social History Tobacco Use ??? Smoking status: Light Tobacco Smoker Packs/day: 0.25 Years: 25.00 Pack years: 6.25 Types: Cigarettes Start date: 05/17/1984 ??? Smokeless tobacco: Former User Quit date: 10/25/2012 ??? Tobacco comment: about 2 cigarettes at most Substance Use Topics ??? Alcohol use: No Comment: Alcoholic Drinks/day: Amount:0; Freq:Never; MEDICATIONS : Outpatient Medications Prior to Visit Medication Sig Note Dispense Refill ??? amLODIPine (NORVASC) 10 MG tablet Take 1 Tablet by mouth daily. 90 Tablet 3 ??? aspirin 81 MG chewable tablet TAKE 1 TABLET BY MOUTH DAILY . 100 tablet 1 ??? atorvastatin (LIPITOR) 80 MG tablet Take 1 tablet by mouth once daily (Patient not taking: Reported on 08/28/2019) 90 Tablet 3 ??? blood glucose (ONE TOUCH ULTRA BLUE) test strip Use to test two times a day. Pharmacy dispense brand based on insurance. ICD-10: E11.29, E11.65, R80.9, Z79.4 200 Strip 3 ??? busPIRone (BUSPAR) 10 MG tablet Take 3 Tablets by mouth two times a day for 30 days. 360 Tablet 3 ??? Continuous Blood Gluc Middleware Engineer (CodotaSTYLE TALAT 2 READER SYSTM) ADÁN Use to scan blood sugars per luster applicator instructions. 1 Each 0 ??? Continuous Blood Gluc Sensor (FREESTYLE TALAT 14 DAY SENSOR) [facility] Use as directed. Change every 14 days. 6 Each 4 ??? divalproex (DEPAKOTE DR) 250 MG enteric coated tablet Take 1,000 mg by mouth two times a day. ??? glucose 4 gram chewable tablet Chew and swallow 4 Tablets by mouth once as needed (Blood sugar less than 70). 30 Tablet 1 ??? insulin degludec 200 UNIT/ML SOPN Inject 32 Units subcutaneously daily. 12 mL 0 ??? insulin pen needle (BD ULTRAFINE JANET) 32G X 4 MM Inject subcutaneously as needed for Blood Sugar >. 100 Each 11 ??? insulin regular (NOVOLIN R) 100 UNIT/ML injection Inject 2 units per 15 grams of carb before meals, at least 6 hours apart.Add Sliding Scale +1 unit/50 >150.max is 30 units daily. 10 mL 11 ??? Insulin Syringe-Needle U-100 (INSULIN SYRINGE 31G X 09/07) 31G X 516 1 ML Inject 1 Each subcutaneously 4 times a day. 400 Each 3 ??? levOCARNitine (CARNITOR) 330 MG tablet TK 3 TS PO QD 5 ??? metFORMIN (GLUCOPHAGE) 500 MG tablet Take 2 Tablets by mouth two times a day with meals. 360 Tablet 3 ??? metoprolol succinate (TOPROL XL) 50 MG 24 hour release tablet Take 1 tablet by mouth once daily 90 Tablet 3 ??? multivitamin (THERAGRAN) tablet Take 1 Tablet by mouth. 01/16/2018: [facility] Sig: Take 1 tablet by mouth once daily. ??? ONE TOUCH ULTRA 2 meter Use to test 4 times a day. 1 Each 0 ??? ONETOUCH DELICA lancets Use to test 4 times a day. 400 Each 3 ??? ONETOUCH ULTRA CONTROL solution Use to test as needed. 1 Each 11 ??? QUEtiapine (SEROQUEL) 200 MG tablet TAKE ONE TABLET BY MOUTH AT BEDTIME 30 Tablet 1 ??? risperiDONE (RISPERDAL) 3 MG tablet Take 1 Tablet by mouth two times a day. 60 Tablet 1 ??? trihexyphenidyl (ARTANE) 2 MG tablet TAKE 1 TO 2 TABLETS BY MOUTH ONCE DAILY NEEDED FOR EPS DISCONTINUE COGENTIN ??? ammonium lactate (LAC-HYDRIN) 12 % lotion Apply topically daily. (Patient not taking: Reported on 08/28/2019) 500 mL 11 No facility-administered medications prior to visit. ALLERGIES: Allergies Allergen Reactions ??? Aripiprazole permanent shaking in left arm ??? Gabapentin Suicidal thoughts Other reaction(s): Other - Describe In Comment Field Suicidal ideation ??? Haloperidol Shock ??? Nitroglycerin Nausea And Vomiting ??? Thiothixene Other, see comments Muscle spasm ??? Trifluoperazine Confusion, heart palpitations ??? Wellbutrin [Bupropion] Anxiety ??? Ziprasidone Tardive dyskinsia OBJECTIVE : Gen.: Alert, cooperative in no acute distress. Vital Signs: BP 123/77 (BP Location: Right Arm, BP Cuff Size: Regular) Pulse 81 Wt 195 lb (88.5 kg) BMI 27.98 kg/m?? Eyes: PERRLA, full EOM. Respiratory: Normal respiratory effort. Heart: RRR Abdomen: The abdomen was soft and nondistended, normal sounds present. No obvious masses or organomegaly. Extremities: His right foot is normal configuration without deformity. However, the 2nd toe is markedly ecchymotic from the D IP joint to the MCP joint. He appreciates no pain with passive range of motion. The toe seems to be less position of bowl and almost more flaccid than the surrounding digits. Neurologic: Absent sensation on the plantar surface of the right foot and across the dorsum of the toes LABS : X-ray to my review suggests a fracture of the distal end of the 2nd toe proximal phalanx, seen on two views. ASSESSMENT /PLAN ICD-10-CM 1. Pain of toe of right foot M79.674 XR Toe Rt 2nd 3 Views Walking Boot 2. Closed nondisplaced fracture of proximal phalanx of lesser toe of right foot, initial encounter S92.514A Walking Boot 3. Uncontrolled type 2 diabetes mellitus with complication, with long-term current use of insulin (PSYCHIATRIC) E11.8 E11.65 Z79.4 4. Diabetic polyneuropathy associated with type 2 diabetes mellitus (PSYCHIATRIC) E11.42 5. Tobacco use disorder (PSYCHIATRIC) F17.200 Given his neuropathy and the clinically suggestive signs of fracture, I would like to place him in acam walker. He will follow-up in 2 weeks Follow-up: 2 weeks L [place] [facility] documented in this encounter Plan of Treatment Not on filedocumented as of this encounter Results XR Toe Rt 2nd 3 Views (03/17/2020 1:45 PM LOCAL [place] [facility]) Anatomical Region Laterality Modality Lower Extremity, Foot, Foot & Ankle Digi ora Radiography Specimen (Source) Anatomical Collection Method Collection Time Re ceived Time Location / / Volume Laterality 03/17/2020 1:34 PM LOCAL [place] [facility] Impressions 03/17/2020 2:23 PM LOCAL [place] [facility] [employer] COMPARISON: ??None. FINDINGS: ??Question impacted second pro ximal phalangeal neck fracture. This finding is somewhat equivocal. Correlate with site of pain. No additional fractures. No dislocation. Procedure Note Brayden Rodrigues, DO - 03/17/2020For matting of this note might be different from the original. IMPRESSION COMPARISON: None. FINDINGS: Question impacted second proxi mal phalangeal neck fracture. This finding is somewhat equivocal. Correlate with site of pain. No additional fractures. No dislocation. Gagandeep Hinojosa MD RAD GD documented in this encounter Visit Diagnoses Diagnosis Pain of toe of right foot - Primary Pain in limb Closed nondisplaced fracture of proximal phalanx of lesser toe of right foot, initial encounter Uncontrolled type 2 diabetes mellitus wi th complication, with long-term current use of insulin Diabetic polyneuropathy associated with type 2 diabetes mellitus (HRC) Tobacco use disorder (HRC) Tobacco use disorder Pain of toe of right foot Pain in limb documented in this encounter Care Teams Bleach Mixer Relationship Specialty Start Date End Date Gagandeep Hinojosa MD PCP - General 05/17/12 [address] [place] [address] Vane Zarate Psychiatrist Psychiatry 03/22/12 [facility] Mental Health Psychotherapist 08/04/17 [facility] Project Manager/Team Coach 09/13/17 documented as of this encounter
--- OUTSIDE RECORDS SUMMARY | 2022-02-12 12:01 | XMS_ITS | Encounter Summary ---
:1970 Author Organization [employer] Address [address] [place] [address] Care Team Providers Name Role Phone Gagandeep Hinojosa MD Primary Care Provider Reason for Visit Reason Comments NATHAN HE Encounter Details Date Type Department Care Team Description 01/07/2020 Office Visit [facility] Gagandeep Hinojosa g enital Medicine MD Joanne (Primary Dx) [address] [facility] [address] [place] [address] [address] [phone] [place], [place] [address] Social History Tobacco Use Types Packs/Day Years Used Date Smoking Tobacco: Light Cigarettes 0.3 25 Last attempted to quit: Smoker 08/21/2019 Smokeless Tobacco: Former Qu it: 10/25/2012 Comments: about 2 cigarettes at most Alcohol Use Standard Drinks/Week Comments No 0 (1 standard drink = 0.6 oz pure Alcoho lic Drinks/day: Amount:0; alcohol) Freq:Never; Sex Assigned at Date Recorded Not on file documented as of this encounter Last Filed Vital Signs Vital Sign Reading Time Taken Comments Blood Pressure 102/73 01/07/2020 12:11 PM CDT Pulse 90 01/07/2020 12:11 PM CDT Temperature - - Respiratory Rate - - Oxygen Saturation - - Inhaled Oxygen Concentration - - Weight 92.1 kg (203 lb) 01/07/2020 12:11 PM CDT Height - - Body Mass Index 29.13 12/04/2019 10:49 AM CDT documented in this encounter Progress Notes Gagandeep Hinojosa MD - 01/07/2020 12:00 PM CDT Subjective: Timur Krishnamurthy is a 49 y.o. male returns for repeat treatment of genital warts. His 1 genital wart is on the undersurface of the phallus near the philtrum on the genital area. Previous treatment has included cryotherapy with fair improvement. Patient's medications, allergies, past medical, surgical, social and family histories were reviewed and updated as appropriate. Review of Systems Pertinent items are noted in HPI. Objective: Physical Exam Skin: 1 verrucous papule on phallus. Assessment: genital wart. Plan: 1. Patient education regarding warts was given 2. We opted for cryotherapy as follows: Cryo gun application of four freezes 3. Verbal patient instruction given. 4. Follow up Three weeks for repeat treatment if needed documented in this encounter Plan of Treatment Not on filedocumented as of this encounter Visit Diagnoses Diagnosis Warts, genital - Primary Condyloma acuminatum documented in this encounter Care Teams Image Processing Engineer Relationship Specialty Start Date End Date Gagandeep Hinojosa MD PCP - General 05/17/12 [address] [place] [address] Vane Zarate Psychiatrist Psychiatry 03/22/12 [facility] Psychotherapist 08/04/17 [facility] Bedspread Folder 09/13/17 documented as of this encounter
--- OUTSIDE RECORDS SUMMARY | 2022-02-12 12:01 | XMS_ITS | Encounter Summary ---
:1970 Author Organization [facility] Address [address] [address] Care Team Providers Name Role Phone Gagandeep Hinojosa MD Primary Care Provider Reason for Referral Consult/Transfer Care (Routine) - Closed Specialty Diagnoses / Procedures Referred By Contact Refer red To Contact Diagnoses Complex care coordination Gagandeep Hinojosa MD [address] [place] [phone] Referral ID Status Reason Start Date Expiration Date Visits Requ ested Visits Authorized [id number] Closed 06/09/2020 09/08/2021 1 1 Scheduling Instructions Your provider has recommended care coord ination. A care team leader will call you within two weeks. If you would like to s peak with someone sooner, please contact your primary care clinic. ING MACHINE OPERATOR Consult/Transfer Care (Routine) - Closed Specialty Diagnoses / Procedures Referred By Contact Refer red To Contact Diagnoses Warts, genital Gagandeep Hinojosa MD [address] [place] [phone] Referral ID Status Reason Start Date Expiration Date Visits Requ ested Visits Authorized [id number] Closed 06/09/2020 09/08/2021 1 1 Scheduling Instructions Your provider has recommended an appoint ment with Jimena Quinn. You may call [phone] to schedule your appoi ntment. We suggest you call your health insurance company about your coverage an d benefits for this appointment. ING MACHINE OPERATOR Reason for Visit Reason Comments WARAutumn Lump Encounter Details Date Type Department Care Team Description 06/09/2020 Office Visit Yaritza Mirza Gagandeep Hinojosa g enital (Primary Dx); Romario Rubio MD Skin lesion; [address] [facility] Complex care coordination; [address] Ave Bipolar I disorder (HRC); [place] [address] [place] Drug-induced extrapyramidal movement disorder [phone] [id number] Social History Tobacco Use Types Packs/Day Years [...] Comments Blood Pressure 132/88 06/09/2020 4:43 PM FORGING MACHINE OPERATOR Pulse 99 06/09/2020 4:43 PM FORGING MACHINE OPERATOR Temperature - - Respiratory Rate - - Oxygen Saturation - - Inhaled Oxygen Concentration - - Weight 88.9 kg (196 lb) 06/09/2020 4:43 PM FORGING MACHINE OPERATOR Height - - Body Mass Index 28.12 12/04/2019 10:49 AM CDT documented in this encounter Progress Notes Gagandeep Hinojosa MD - 06/09/2020 4:40 PM CST ICD-10-CM 1. Warts, genital A63.0 DESTRUCT BENIGN SKIN LESIONS UP TO 14 [address]10 Dermatology Consult-Adult/Peds 2. Skin lesion L98.9 3. Complex care coordination Z71.89 CARE COORDINATION - PRIMARY CARE CONSULT 4. Bipolar I disorder (HRC) F31.9 5. 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 WART ??? Lump SUBJECTIVE : Timur Krishnamurthy is an 50 y.o. male who presents for multiple concerns. Just discharged from a crisis facility at [facility] for acute on psychiatric crisis. Not suicidal, released a few days ago. Divorce is eminent has a has his evaluation from his current living arrangements. However, he is most concerned about genital warts I would like to have these cut off which cannot be done in the office. He is not sexually active. He also is a small firm nodule in the right axilla that he would like to haveevaluated. He has had some cryotherapy to his genital warts, located on the inferior coronal sulcus as well as on the ventral surface of the phallus, but he has not been consistent in following up for repeat treatment. PROBLEM LIST: Patient Active Problem List Diagnosis Date Noted ??? Non-proliferative diabetic retinopathy ([facility]) 05/02/2019 ??? Hyponatremia 01/16/2018 ??? Tinea versicolor 07/18/2015 ??? Tobacco use disorder ([facility]) 10/26/2012 ??? Anemia 05/02/2012 Overview Note: Anemia, unspecified ??? Microalbuminuria 02/04/2012 ??? [place], old ([facility]) 09/16/2011 ??? History of PTCA 09/16/2011 Overview Note: History of PTCA 04/2011 BMS RCA ??? Obesity, Class I, BMI 30-34.9 ([facility]) 09/16/2011 Overview Note: Body mass index is 31.16 kg/(m^2). ??? Hyperlipidemia with target LDL less than 70 ([facility]) 06/08/2011 Overview Note: Hyperlipidemia LDL goal < 70 ??? ASHD (arteriosclerotic heart disease) ([facility]) 05/04/2011 ??? Erectile dysfunction 01/22/2011 Overview Note: side effect Risperdal ??? Type 2 diabetes mellitus, uncontrolled ([facility]) 12/11/2010 Overview Note: Type II or unspecified type diabetes mellitus without mention of complication, uncontrolled ([facility]) ??? Dermatophytosis of body 09/04/2010 Class: Historical Overview Note: Tinea Corporis ??? Coronary atherosclerosis ([facility]) 12/22/2009 Overview Note: LW Modifier: mod RCA, negative nuclear stress test ; CAD ??? Nonspecific abnormal results of liver function study 12/22/2009 Overview Note: Liver Function Tests Abnormal ??? Bipolar I disorder (HRC) 09/15/2005 Overview Note: LW Onset: ; Bipolar I Dis FAMILY HISTORY OR SICK CONTACTS : History reviewed. No pertinent family history. SOCIAL HISTORY : Social History Tobacco Use ??? Smoking status: Current Every Day Smoker Packs/day: 1.00 Years: 25.00 Pack years: 25.00 Types: Cigarettes Start date: 05/17/1984 ??? Smokeless [...] (ONE TOUCH ULTRA BLUE) test strip Use 1 Each to test three times a day. Pharmacy dispense brand based on insurance. ICD-10: E11.29, E11.65, R80.9, Z79.4 300 Strip 3 ??? busPIRone (BUSPAR) 10 MG tablet Take 3 Tablets by mouth two times a day for 30 days. 360 Tablet 3 ??? Continuous Blood Gluc Plant General Manager (FREESTYLE TALAT 2 READER SYST) ADÁN Use to scan blood sugars per geospatial scientist instructions. 1 Each 0 ??? Continuous Blood Gluc Sensor (FREESTYLE TALAT 14 DAY SENSOR) [facility] Use as directed. Change every 14 days. 6 Each 4 ??? divalproex (DEPAKOTE DR) 250 MG enteric coated tablet Take 1,000 mg by mouth two times a day. ??? divalproex (DEPAKOTE ER) 500 MG 24 hour release tablet Take 2 Tablets by mouth two times a day. 120 Tablet 0 ??? glucose 4 gram chewable tablet Chew and swallow 4 Tablets by mouth once as needed (Blood sugar less than 70). 30 Tablet 1 ??? insulin degludec 200 UNIT/ML SOPN Inject 32 Units subcutaneously daily. 12 mL 0 ??? insulin pen needle (BD ULTRAFINE JANET) 32G X 4 MM Inject subcutaneously as needed for Blood Sugar >. 100 Each 3 ??? insulin regular (NOVOLIN R) 100 UNIT/ML [...] 1 Tablet by mouth. 01/16/2018: [facility] Sig: Take 1 tablet by mouth once daily. ??? ONE TOUCH ULTRA 2 meter Use to test 4 times a day. 1 Each 0 ??? ONETOUCH DELICA lancets Use 1 Each to test three times a day. 300 Each 3 ??? ONETOUCH ULTRA CONTROL solution Use to test as needed. 1 Each 11 ??? QUEtiapine (SEROQUEL) 200 MG tablet TAKE ONE TABLET BY MOUTH AT BEDTIME 30 Tablet 1 ??? risperiDONE (RISPERDAL) 3 MG tablet TAKE ONE TABLET BY MOUTH TWICE A DAY 60 Tablet 1 ??? trihexyphenidyl (ARTANE) 2 MG tablet TAKE 1 TO 2 TABLETS BY MOUTH ONCE DAILY NEEDED FOR EPS DISCONTINUE COGENTIN No facility-administered medications prior to visit. ALLERGIES: [...] Gen.: Alert, cooperative in no acute distress. he has clear tremor which has been believed to be secondary to his antipsychotics. He is currently not on any Cogentin. Vital Signs: BP 132/88 (BP Location: Right Arm, BP Cuff Size: Regular) Pulse 99 Wt 196 lb (88.9 kg) BMI 28.12 kg/m?? Afflect is a bit flat. Eyes: PERRLA, full EOM. Respiratory: Normal respiratory effort. Heart: RRR Abdomen: The abdomen was soft and nondistended, normal sounds present. No obvious masses or organomegaly. Extremities: He clearly has athetosis and tremor of both upper extremities, right greater than left He has a 6 x 8 mm firm nodule in the left axilla that is consistent either with a goal fibroma, sebaceous cyst, or a scar. It is in the skin but does not seem to extend into the subcutaneous tissue. Itis soft, somewhat mobile, nontender. Bowel Genitalia: He has 2 large phalanx warts. One is somewhat serrated along the inferior coronal sulcus measuring about 1.4 cm in length, approximately 5 mm in height, and about 3 mm in width. There is a flat wart along the ventral aspect of the thalamus measuring 8 mm in diameter with a verrucous surface. LABS : ASSESSMENT /PLAN ICD-10-CM 1. Warts, genital A63.0 DESTRUCT BENIGN SKIN LESIONS UP TO 14 [id number] Dermatology Consult-Adult/Peds 2. Skin lesion L98.9 Will address at his next clinic visit. He may elect to have this removed 3. Complex care coordination Z71.89 CARE COORDINATION - PRIMARY CARE CONSULT 4. Bipolar I disorder (HRC) F31.9 benztropine (COGENTIN) 0.5 MG tablet 5. 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 Hopefully she can help with housing. Follow-up: 3 weeks ING MACHINE OPERATOR documented in this encounter Plan of Treatment Scheduled Referrals Name Type Priority Associated Diagnoses Order [facility] Dermatology Referral Routine Warts, genital Ordered: 05/26 Consult-Adult/Peds documented as of this encounter Visit Diagnoses Diagnosis Warts, genital - Primary Condyloma acuminatum Skin lesion Unspecified disorder of skin and subcuta neous tissue Complex care coordination Bipolar I disorder (HRC) Bipolar I disorder, most recent episode (or current) unspecified Drug-induced extrapyramidal movement dis order (HRC) documented in this encounter Care Teams Dental Prosthetist Relationship Specialty Start Date End Date Gagandeep Hinojosa MD PCP - General 05/17/12 [facility] [place] [address] Vane Zarate Psychiatrist Psychiatry 03/22/12 [facility] Psychotherapist 08/04/17 [facility] Board Runner 09/13/17 documented as of this encounter
--- OUTSIDE RECORDS SUMMARY | 2022-02-12 12:01 | XMS_ITS | Encounter Summary ---
:1970 Author Organization [employer] Address [address], [place] [address] Care Team Providers Name Role Phone Gagandeep Hinojosa MD Primary Care Provider Reason for Visit Reason Comments Post Hospital Discharge Follow Up ACO Post DC Encounter Details Date Type Department Care Team Description 06/20/2020 Telephone [facility] Gagandeep Hinojosa, Post Hospital Discharge Medicine MD Follow Up (ACO Post DC) 1415 [facility] . [address] [place] [address] [place] [address] [phone] (Wo rk) Social History Tobacco Use Types [...] documented as of this encounter Nursing Notes Tona Hidalgo RN - 06/20/2020 3:49 PM CST Post hospitalization discharge follow up call completed. See doc flowsheet: [facility] for details. Rustam has been working with [facility] Care Coordination. Pt shared that he has concerns regarding housing, he will no longer have as of July 22, 2020. He has tried to get into [employer] housing but this has not worked out. Pt is concerned he will have no where to lives by the end of next month and would like to talk with care coordination about further options. Pt has a PCP and lab follow-up on 06/23/2020. He would like PCP to add liver function tests to his lab orders if they are not already ordered and treat chronic groin growths with liquid nitrogen. Vegetable Vendor will notify Care Coordination and PCP of Pt's questions. MOTIVE DETAILER documented in this encounter Plan of Treatment Not on filedocumented as of this encounter Visit Diagnoses Not on filedocumented in this encounter Care Teams Art Manager Relationship Specialty Start Date End Date Gagandeep Hinojosa MD PCP - General 05/17/[address] [place], [place] [address] [address] Vane Zarate Psychiatrist Psychiatry 03/22/12 [facility] Psychotherapist 08/04/17 [facility] Buildings Painter 09/13/17 documented as of this encounter
--- OUTSIDE RECORDS SUMMARY | 2022-02-12 12:01 | XMS_ITS | Encounter Summary ---
:1970 Author Organization [facility] Address [address] [place] [address] Care Team Providers Name Role Phone Gagandeep Michaud MD Primary Care Provider Reason for Visit Reason Comments Refill QUEtiapine (SEROQUEL) 200 MG tablet [Pharmacy Med Name: QUEtiapine Fumarate 200 MG Oral Tablet] Encounter Details Date Type Department Care Team Description 12/10/2019 Refill Gagandeep Storm, Rochelle l (QUEtiapine Medicine (SEROQUEL) 200 MG tablet [address] [facility] [Pharmacy Med Name: [place] [address] [place] [address] QUEtiapine Fumarate 200 [phone] (Wo rk) MG Oral Tablet]) Social History Tobacco Use Types Packs/Day [...] documented as of this encounter Nursing Notes Interface, Out Surescripts Prov Query - 12/10/2019 5:31 AM CDT QUEtiapine (SEROQUEL) 200 MG tablet [Pharmacy Med Name: QUEtiapine Fumarate 200 MG Oral Tablet] Medication started: 07/09/2016 Last ordered by GAGANDEEP MICHAUD: 10/15/2019 (56 days ago) QTY: 30, Refills: 1, Sig: take 1 tabletby mouth once daily at bedtime (unchanged) -> Medication cannot be delegated. Last qualifying visit: 12/04/2019 (with GAGANDEEP MICHAUD) Next scheduled visit: None Powered by [employer], Reference: [id number], 12/10/2019 5:31:41 AM CDT, Pool: MANUEL MOORE ([id number]) documented in this encounter Plan of Treatment Not on filedocumented as of this encounter Visit Diagnoses Not on filedocumented in this encounter Care Teams Blind Teacher Relationship Specialty Start Date End Date Gagandeep Michaud MD PCP - General 05/17/12 [facility] [place] [address] Vane Zarate Psychiatrist Psychiatry 03/22/12 [facility][1] Psychotherapist 08/04/17 [facility] Lather Apprentice 09/13/17 documented as of this encounter
--- OUTSIDE RECORDS SUMMARY | 2022-02-12 12:01 | XMS_ITS | Encounter Summary ---
:1970 Author Organization [facility] Address [address] [address] Care Team Providers Name Role Phone Gagandeep Hinojosa MD Primary Care Provider Reason for Visit Reason Comments FOLLOW-UP,DIABETES Encounter Details Date Type Department Care Team Description 12/19/2019 Care Coord Office Judy Luke RN FOLLOW-UP,DIABETES Visit Medicine [facility] [address] [place] [address] [place] [phone] Social History Tobacco Use Types Packs/Day Years [...] on file documented as of this encounter Progress Notes Judy Pittman RN - 12/19/2019 11:00 AM CDT RN Loan Interviewer Visit Pt: Timur Krishnamurthy Referred by: Gagandeep Hinojosa MD Reason for referral: Diabetes type 2 uncontrolled Most recent vitals signs: Wt Readings from Last 3 Encounters: 12/04/19 203 lb 9.6 oz (92.4 kg) 06/21/19 200 lb (90.7 kg) 06/11/19 207 lb (93.9 kg) BP Readings from Last 3 Encounters: 12/04/19 99/47 06/21/19 132/85 06/11/19 137/80 Most recent lab results: HGB A1C (%) Date Value 01/19/2018 8.0 (H) Hemoglobin A1C (%) Date Value 11/28/2018 10.6 (H) Glycosolated HGB A1C (POC) (%) Date Value 08/15/2017 7.7 (H) Hemoglobin A1C, POCT (%) Date Value 12/04/2019 11.3 (H) Lab Results Component Value Date/Time LDL 54 12/04/2019 10:06 AM Social History Tobacco Use ??? Smoking status: Current Some Day Smoker Packs/day: 0.25 Years: 25.00 Pack years: 6.25 Types: Cigarettes Last attempt to quit: 08/21/2019 Years since quittin.3 ??? Smokeless tobacco: Former User Quit date: 10/25/2012 ??? Tobacco comment: about 2 cigarettes at most Substance Use Topics ??? Alcohol use: No Comment: Alcoholic Drinks/day: Amount:0; Freq:Never; Current diabetes medications: Metformin (Glucophage)1,000 mg BID Tresiba (insulin degludec U-200) 32 units daily in PM ReliOn R 3 units/CHO choice 6-12 units BID Relion R Sliding Scale: add 2 units for every 50 points over 200 Aspirin: Yes - 81 mg daily Glucose meter: One Touch Ultra/Freestyle Bharath CURRENT GLUCOSE PATTERNS: since 12/12/19 Fastin - 211, (236 after ice cream) Before dinner: 151 - 191 (251 after 2 bananas) Before Bed: 180 - 277, (281 after lemon meringue pie) Hypoglycemia (previous two weeks): none ASSESSMENT: Due to the COVID-19 pandemic, this visit was completed by telephone. Medication Rustam is currently using a regimen of metformin, along with Tresiba U200 and Relion Regular insulin.He continues to use a Regular insulin sliding scale at two units per 50 points >200. I provided aFreesbogdan Bharath at Rustam's last visit, which he stated was very helpful. However, he admits he has not been taking his Regular insulin consistently. Rustam states he never misses taking Tresiba insulin,but typically only takes one dose of Regular insulin before dinner. When I asked Rustam why he doesn't take both his Regular insulin doses, he states it is pure laziness. He notes, when he sees a high reading (over 200), then he will take his Regular insulin, which ismost often before dinner. Rustam assures me he rarely misses an entire day of Regular insulin and states he never misses taking his Tresiba dose. I stressed to Rustam that he has a good insulin plan that works, all he needs to do is take his insulin consistently and his glucose control would improve significantly, help him to feel better, and prevent further complications from T2 DM. I reviewed how to use Rustam's sliding scale with him again. Blood Glucose Previously, I provided Rustam with a sample Freestyle reader and sensor. He stated he really liked being able to scan his BG at any time and see how his BG responded to certain foods. Unfortunately, Rustam only has 80% coverage through Medicare, he is responsible for 20% his co-insurance doesn't cover, which is about $100/month. We called [employer] to inquire about an assistance program and they stated they had already mailed the paperwork to Rustam. Since Rustam only needs to use his personal income (not income) and his income is less than $36,000/year, he should be eligible forthe program. Rustam agreed to complete the paperwork COLLETTE and drop it off at the clinic for me to fax. Rustam stated he knows he hasn't been doing very well with managing his DM and notes, If it's going to be, it's up to me. I agreed. Diet Rustam continues to try to keep his CHO intake at 45-60 grams of CHO per meal. He has been eating more vegetables and trying to avoid candy and ice cream. I reminded Rustam that when he wants to eat highCHO foods, he can either cover the CHO with insulin or swap out other CHO foods. Rustam states he knows that when he indulges on high CHO foods, such as ice cream , it results in BG readings >200. I reminded Rustam to record the foods he eats before all BG readings >200, which will help him learn the foods that cause his BG to increase, so he can cover these foods with more insulin or decrease his portion of the food the next time he eats it. Hypoglycemia Rustam denies any further lows. I reviewed how to use Routine 15 again and Rustam reports he has access to glucose tablets at all times now. Follow up Rustam will continue to focus on taking his Regular insulin twice daily, as prescribed, and using hisunit/CHO ratio and sliding scale. He will try to resume SMBG at least tid and record his readings. We will follow up in 2 weeks, sooner if he experiences hypoglycemia or has questions. Family/social support: Patient attended today's visit by telephone. He currently lives with spouse. Current activity regimen: not discussed today Patient barrier(s) to learning identified: Finance and Emotional. BG Goals: Health Group Home Lab Goal <7 Pre-meal: 70-130 mg/dL PPG: <180 mg/dL Bedtime: 90-150 mg/dL A1c: <7.0% Recommended testing frequency: Before each meal and before HS Snack Education content covered today: Correction Factor Unit/CHO Ratio BG Monitoring Diet Edwin received verbal instructions and written materials tailored to his preferred method of learning. Literacy level assessed (as appropriate). Interventions, including teach back, used to verify understanding. SHARED PLAN: Continue current insulin and medication regimen, as prescribed. Take Regular insulin consistently, twice daily. Carefully count CHO choices to calculate unit/CHO dosing. SMBG as directed, record readings. Faxed Benefit Assistance Program application to [employer]. Phone follow up scheduled on 01/02/20. Rustam to call if symptoms of hypoglycemia or readings < 70 mg/dL. Rustam verbalized understanding and agreed with plan of care and follow up. documented in this encounter Plan of Treatment Not on filedocumented as of this encounter Visit Diagnoses Not on filedocumented in this encounter Care Teams Pipe Washer Relationship Specialty Start Date End Date Gagandeep Hinojosa MD PCP - General 05/17/[address] [place], [place] [address] [address] Vane Zarate Psychiatrist Psychiatry 03/22/12 [facility] Psychotherapist 08/04/17 [facility] Metal Buggy Operator 09/13/17 documented as of this encounter
--- OUTSIDE RECORDS SUMMARY | 2022-02-12 12:01 | XMS_ITS | Encounter Summary ---
:1970 Author Organization [employer] Address [address] [place] [address] Care Team Providers Name Role Phone Gagandeep Hinojosa MD Primary Care Provider Reason for Visit Reason Comments APPOINTMENT REQUEST Encounter Details Date Type Department Care Team Description 02/26/2020 Care Coord Phone Judy Luke R N APPOINTMENT REQUEST Medicine 1415 [facility] 1415 [facility] . [place] [address] [place] V[place]AZQUEZ [phone] Social History Tobacco Use Types Packs/Day Years [...] documented as of this encounter Nursing Notes Judy Pittman RN - 03/12/2020 7:46 PM CST Rustam is returning my call. He states he has been in transition since his separation from his wifeand apologizes for missing his scheduled appts. I assisted with rescheduling an appt with Dr Hinojosa and myself. Because Medicare Open Enrollment ends 03/31/20, I stressed the importance of Rustam calling the Senior Linkage Line for help with selecting a supplemental plan. Rustam agreed. ED PRINTER Judy Pittman RN - 02/26/2020 11:52 AM CST Rustam did not show for his DM follow up appt with Dr Hinojosa and myself today. I left a detailed message requesting he call back to reschedule, as we need to complete his application for [employer] and call the Senior Linkage Line to search for a Medicare supplemental plan. I stressed that both of these applications are time sensitive. ED PRINTER documented in this encounter Plan of Treatment Not on filedocumented as of this encounter Visit Diagnoses Not on filedocumented in this encounter Care Teams Rail Track Layer Relationship Specialty Start Date End Date Gagandeep Hinojosa MD PCP - General 05/17/[address] [place], [place] [address] [address] Vane Zarate Psychiatrist Psychiatry 03/22/12 [facility] Psychotherapist 08/04/17 [facility] Peeler Operator 09/13/17 documented as of this encounter
--- OUTSIDE RECORDS SUMMARY | 2022-02-12 12:01 | XMS_ITS | Encounter Summary ---
:1970 Author Organization [employer] Address [address], [place] [address] Care Team Providers Name Role Phone Gagandeep Hinojosa MD Primary Care Provider Reason for Visit Reason Comments FOLLOW-UP,DIABETES Encounter Details Date Type Department Care Team Description 04/01/2020 Care Coord Phone Judy Luke R N FOLLOW-UP,DIABETES Medicine [address] [place] [address] . [place] [address] [place] [address] [phone] Social History Tobacco Use Types Packs/Day Years [...] encounter Nursing Notes Judy Pittman RN - 04/01/2020 1:18 PM CST RN Rn Ent - Diabetes Follow-Up Current diabetes medication regimen: Metformin 1,000 mg BID Tresiba 32 units at HS Relion Regular per sliding scale BID (typicall 6-8 units) CURRENT GLUCOSE PATTERNS: Range from memory: 145 - 210 Hypoglycemia (previous two weeks): none Assessment/education: Unfortunately, Rustam forgot about his scheduled appt today and was not home when I called. He returned my call about 20 minutes later, so our time is limited. Insurance Rustam currently has medical coverage through Medicare and Part D only, he does not have supplementalcoverage, primarily because cost has been a barrier. I had advised Rustam that his recent divorce makes his income eligible for more assistance and encouraged him to meet with me during Open Enrollment to check into his options. Rustam missed his scheduled appt on 02/26/20. So, I provided Rustam with the contact information for the Senior Linkage Line to call on his own, highlighting the deadline of 03/31/20. Unfortunately, Rustam states he tried to call the Senior Linkage Line once, but they were closed at the time, and he missed the deadline. Now that Open Enrollment has closed, I still stressed the importance of Rustam applying for additional support with his medical costs. He may not be eligible for a supplemental plan until next year, buthe would likely be eligible for Medicare Partners. I noted that Medicare Partners is not insurance, but would apply to providers within [employer] [place], and would eliminate his responsibility for the 20% that Medicare does not cover. The cost to apply annually is $45. Rustam would like to apply. Medication Rustam continues to use a regimen of metformin with basal and regular insulin for glucose management.He admits he isn't always consistent with his regular insulin dosing. I agreed that the timing of regular insulin isn't as convenient as rapid insulin. Again, I explained that [place] income is now eligible for pharmaceutical assistance programs, such as [employer], which would provide both his Tresiba and Novolog insulin at no cost. However, Rustam did not meet the 03/24/20 deadline for 2019, so he will have to wait until 04/2020 to apply. Blood Glucose Rustam was approved for assistance with the cost of his FreeStyle Bharath supplies through [employer]. However, he states he hasn't been able to use his Bharath for the past month secondary to his hand tremors andnot being able to apply the sensors himself. I explained to Rustam that I would be happy to help apply his Bharath sensors in clinic every 2 weeks, at no charge. I stressed that there is always help available, he just needs to ask. Also, I reminded Rustam that just because he has a CGM, doesn't mean he won't need to use his glucometer anymore. I noted that he should always use his glucometer to check hisBG whenever he does not have access to his CGM and whenever his BG is changing rapidly. I highlighted the difference between interstitial and venous BG readings again. Rustam states he does not have anytesting supplies and requests a new prescription. Follow up I stressed that I am happy to help Rustam apply for additional resources, but he needs to follow through with his scheduled appts. Rustam assures me he won't forget his upcoming appt next week. I provided a list of documents that are required in order to apply for Medicare Partners and [employer], as well as left these items on his voicemail because Rustam didn't have any way to write them down, including: ?? Bharath supplies ?? Director's License ?? Insurance cards, Medicare AND Part D ?? Social Security Benefit Letter ?? Check and Savings Account Statements ?? Make, model, and mileage for vehicle ?? Personal check for Medicare Partners application fee Teach back method used to verify understanding. Shared plan: Continue current insulin and medication dosing for now. SMBG as directed, record readings. Scheduled follow up on 04/08/20, bring documents above. RN Rn Ent, as needed. Call if sx of hypoglycemia or glucose readings < 70 mg/dL. Rustam verbalized understanding and agreed with plan of care and follow up. Y LEVEL AUTOMOTIVE TECHNICIAN documented in this encounter Plan of Treatment Not on filedocumented as of this encounter Visit Diagnoses Diagnosis Uncontrolled type 2 diabetes mellitus wi th diabetic polyneuropathy, with long-term current use of insulin Uncontrolled type 2 diabetes mellitus wi th microalbuminuria, with long-term current use of insulin Plan of Care - Judy Pittman, JOSETTE - 04/01/2020 1:00 PM CST Phone visit Y LEVEL AUTOMOTIVE TECHNICIAN documented in this encounter Care Teams Fish Hatchery Specialist Relationship Specialty Start Date End Date Gagandeep Hinojosa MD PCP - General 05/17/12 [address] [facility] [place] [address] Vane Zarate Psychiatrist Psychiatry 03/22/12 [facility] Psychotherapist 08/04/17 [facility] Customer Expert 09/13/17 documented as of this encounter
--- OUTSIDE RECORDS SUMMARY | 2022-02-12 12:01 | XMS_ITS | Encounter Summary ---
:1970 Author Organization [employer] Address [address] [place] [address] Care Team Providers Name Role Phone Gagandeep Hinojosa MD Primary Care Provider Reason for Visit Reason Onset Date Comments Follow-up Phone Visit 01/30/2020 Encounter Details Date Type Department Care Team Description 01/30/2020 Telemedicine [facility] Gagandeep Hinojosa (Primary Dx) Romario Rubio MD [address] [place] [address] Ave [phone] [place] [address] Social History Tobacco Use Types [...] documented as of this encounter Progress Notes Gagandeep Hinojosa MD - 01/30/2020 9:40 AM CDT Subjective: Today's visit with Timur Krishnamurthy was conducted as a scheduled telephone visit. Subjectively, he is doing better. He may be having some mild sedation from the 10 mg of BuSpar twicedaily, but notes that his anxiety is less, having had or 2 days of anxiety compared to daily occurrence. He has found an apartment to move into next week, which has some his stress. He remains cigarettes blood sugars improving. He would be due to have labs drawn February so I recommended that he a clinic visit than to labs and to reassess his anxiety as. His other medications are up-to-date. Objective: Health Maintenance Due Topic Date Due ??? Colon Cancer Screening Plan Due 1970 ??? Diabetes: Eye Exam 07/25/2018 ??? HepB (2 of 3 - Risk 3-dose series) 01/15/2019 ??? Diabetes: Foot Exam 07/28/2019 ??? Zoster (1 of 2) 01/22/2020 ??? Diabetes: HGBA1C 03/05/2020 BP Readings from Last 1 Encounters: 01/22/20 124/82 Is conversational tone is normal. No pressured speech, no hesitancy. He is not invasive, does not perseverate. Assessment/Plan: Anxiety As mentioned above, see him month period he should be seen sooner if his anxiety decompensates with his move. Billing based on: Time 20 minutes spent on the phone with the patient, with greater than 50% in counseling and coordinationof care. Gagandeep Hinojosa MD documented in this encounter Plan of Treatment Not on filedocumented as of this encounter Visit Diagnoses Diagnosis Anxiety - Primary Anxiety state, unspecified documented in this encounter Care Teams Extruder Tender Relationship Specialty Start Date End Date Gagandeep Hinojosa MD PCP - General 05/17/12 [facility] [place] [address] Vane Zarate Psychiatrist Psychiatry 03/22/12 [facility] Psychotherapist 08/04/17 [facility] [employer] Paralegal 09/13/17 documented as of this encounter
--- OUTSIDE RECORDS SUMMARY | 2022-02-12 12:01 | XMS_ITS | Encounter Summary ---
:1970 Author Organization [employer] Address [address] [address] Care Team Providers Name Role Phone Gagandeep Michaud MD Primary Care Provider Reason for Visit Reason Onset Date Comments Refill Refill 05/10/2020 Encounter Details Date Type Department Care Team Description 05/08/2020 Refill [facility] Gagandeep Michaud MD Refill; Refill [address] [facility] . [address] [place] [address] [place], [place] [phone] (Wo rk) Social History Tobacco Use Types [...] encounter Nursing Notes Mendy Nieves RN - 05/09/2020 5:23 PM CST Further Assistance Needed on Refill from Clinician RN reviewed. Signed order needed. Medication previously signed by Dr. Vane Huff (has retired). Patient was last seen 03/17/2020. Labs for Rx Depakote are due. Patient is almost out of medication. Review pended order for accuracy and sign if appropriate and Lab(s) have been ordered and patient has been notified to schedule appointment seen 03/17/20 Requested Prescriptions Pending Prescriptions Disp Refills ??? divalproex (DEPAKOTE ER) 500 MG 24 hour release tablet [Pharmacy Med Name: DIVALPROEX SODIUM ER 500MG TB24] 120 Tablet 5 Sig: Take 2 Tablets by mouth two times a day. OLOGY COLLECTOR Alyssa Porter RN - 05/09/2020 11:52 AM CST Further Assistance Needed on Refill from Nursing/Triage Requested medication was discontinued Next steps: Nursing/Triage to complete refill as appropriate. Requested Prescriptions Pending Prescriptions Disp Refills divalproex (DEPAKOTE ER) 500 MG 24 hour release tablet [Pharmacy Med Name: DIVALPROEX SODIUM ER 500MG TB24] 120 Tablet Sig: TAKE ONE TABLET BY MOUTH TWICE A DAY FOR 7 DAYS AND THEN TAKE TWO TABLETS BY MOUTH TWICE A DAY OLOGY COLLECTOR Interface, Out S[employer] Prov Query - 05/08/2020 12:39 PM CST divalproex (DEPAKOTE ER) 500 MG 24 hour release tablet [Pharmacy Med Name: DIVALPROEX SODIUM ER 500MG TB24] Medication started: 05/17/2017 Last ordered by UNKNOWN, PHYSICIAN: 11/19/2019 (171 days ago as Historical on 12/04/2019 by DANIAL INIGUEZ), Sig: take 1 tablet by mouth twice daily for 7 days and then 2 tablets twice daily (changed) -> This medication was discontinued on 12/04/2019 by GAGANDEEP MICHAUD. -> The requested medication was previously set to Historical. -> Unable to determine if sig has changed, review required. -> A qualifying visit was not found within the last 2 years. -> ALT and Valproic Acid (serum) are overdue (performed 37 months ago, required every 12 months) -> HCT, HGB, PLT, and WBC are overdue (performed 18 months ago, required every 12 months) -> Valproic Acid (serum) was found, but the result could not be read. Last qualifying visit: None (A recent visit (in Family Practice with [facility]) was found) Next scheduled visit: None ALT: 17 U/L on 04/29/2017 HCT: 40.2 % on 11/28/2018 HGB: 14.7 g/dL on 11/28/2018 PLT: 253 k/cmm on 11/28/2018 Valproic Acid (serum): Taken on 04/29/2017 WBC: 8.4 k/cmm on 11/28/2018 Powered by [employer], Reference: [id number], 05/08/2020 12:39:24 PM PATHOLOGY COLLECTOR, Pool: MANUEL MOORE ([id number]) OLOGY COLLECTOR documented in this encounter Plan of Treatment Not on filedocumented as of this encounter Visit Diagnoses Diagnosis Bipolar I disorder (HRC) - Primary Bipolar I disorder, most recent episode (or current) unspecified ASHD (arteriosclerotic heart disease) (H RC) Coronary atherosclerosis of unspecified type of vessel, gakona or graft documented in this encounter Care Teams Music Library Assistant Relationship Specialty Start Date End Date Gagandeep Michaud MD PCP - General 05/17/[address] [place] [address] [place] [address] Vane Zarate Psychiatrist Psychiatry 03/22/12 [facility] Psychotherapist 08/04/17 [facility] Supervisor Game Farm 09/13/17 documented as of this encounter
--- OUTSIDE RECORDS SUMMARY | 2022-02-12 12:01 | XMS_ITS | Encounter Summary ---
:1970 Author Organization [employer] Address [address] [place] [address] Care Team Providers Name Role Phone Gagandeep Michaud MD Primary Care Provider Reason for Visit Reason Onset Date Comments Refill 01/09/2020 metFORMIN (GLUCOPHAG E) 500 MG tablet Encounter Details Date Type Department Care Team Description 01/09/2020 Refill [facility] Gagandeep Michaud, Refil l (metFORMIN Medicine (GLUCOPHAGE) [address] tablet) [place] [address] [place], [place] [phone] (Wo rk) Social History Tobacco Use Types [...] documented as of this encounter Nursing Notes Shayy Haynes RN - 01/09/2020 4:46 PM CDT Renewed medication per medication refill protocol. Requested Prescriptions Pending Prescriptions Disp Refills metFORMIN (GLUCOPHAGE) 500 MG tablet 360 Tablet 3 Sig: Take 2 Tablets by mouth two times a day with meals. Interface, Out [employer] Prov Query - 01/09/2020 4:06 PM CDT metFORMIN (GLUCOPHAGE) 500 MG tablet Medication started: 01/16/2014 Last ordered by GAGANDEEP MICHAUD: 10/04/2019 (97 days ago) QTY: 360, Refills: 0, Sig: take 2 tablets by mouth twice daily with meals (changed but equivalent) -> HBA1C is abnormal (11.3 % is greater than 7.9 %) -> Refill x 12 months, qty: 360, refills: 3 (until due for a(n) Cr check and HBA1C check) Last qualifying visit: 01/07/2020 (with GAGANDEEP MICHAUD) Next scheduled visit: 02/26/2020 (with GAGANDEEP MICHAUD) Cr: 0.8 mg/dL on 12/04/2019 HBA1C: 11.3 % on 12/04/2019 Powered by [employer], Reference: [id number], 01/09/2020 4:06:27 PM CDT, Pool: MANUEL MOORE ([id number]) documented in this encounter Plan of Treatment Not on filedocumented as of this encounter Visit Diagnoses Not on filedocumented in this encounter Care Teams Account Liaison Hospice Relationship Specialty Start Date End Date Gagandeep Michaud MD PCP - General 05/17/12 [address] [place] [address] Vane Zarate Psychiatrist Psychiatry 03/22/12 [facility] Mental Health Psychotherapist 08/04/17 [facility] Imaging Technician 09/13/17 documented as of this encounter
--- OUTSIDE RECORDS SUMMARY | 2022-02-12 12:01 | XMS_ITS | Encounter Summary ---
:1970 Author Organization [facility] Address [address] [place] [address] Care Team Providers Name Role Phone Gagandeep Hinojosa MD Primary Care Provider Encounter Details Date Type Department Care Team Description 04/10/2020 Notes/Orders [facility] MasonkeeAlhaji Co ntact with james Belcher MD exposure to viral [address] [place] [address] [phone] Social History Tobacco Use Types Packs/Day Years [...] on filedocumented as of this encounter Results Asymptomatic - 2019 Novel Coronavirus (COVID-19) (04/10/2020 10:29 AM NURSING CLERK) [facility] Method Time Signature SARS-CoV-2 by Not Detected 04/11/2020 [facility] 11:15 PM NURSING CLERK LABORATORIES Comment: INTERPRETIVE INFORMATION: SARS-CoV-2 (CO VID-19) by CRISTIANA This test should be ordered for the dete ction of the 2019 novel coronavirus SARS-CoV-2 in individuals wh o meet SARS-CoV-2 clinical and/or epidemiological criteria. The Coronavirus SARS-CoV-2 (COVID-19) by nucleic acid amplification test is for in vitro diagn ostic use under the FDA Emergency Use Authorization (EUA) for US laboratories certified under CLIA to perform high complexity te sts. This test has not been FDA cleared or approved. In complia nce with this authorization, please visit [email or web address] for more information and to access the applicable information sheets. Not Detected results do not rule out the presence of PCR inhibitors in the patient specimen or as say specific nucleic acid in concentrations below the level of det ection by the assay. Detected results are indicative of the p resence of SARS-CoV-2 RNA. Due to the complexity of nucleic acid am plification methodologies, there may be a risk of false positive re sults. Clinical correlation with patient history and oth er diagnostic information is necessary to determine patient infect ion status. Reliable results are dependent on adequa te specimen collection, transport, storage, and handling. Performed by [facility], [address] [place] [address] www.[facility], Barbara Mckeon MD, La b. Director SARS Cov-2 Source Nares, left and 04/11/2020 11:15 PM NURSING CLERK [facility] right Specimen Anatomical Collection Method Collection Time Receive d Time (Source) Location / / Volume Laterality Swab (Source Non-blood 04/10/2020 10:29 04/10/2020 Required) Collection / AM NURSING CLERK 11:56 AM NURSING CLERK Unknown Alhaji Egan MD LAB_1 Performing Organization Address City/State/ZIP Code Phon e Number [facility] [address] [place], [place] [id number] documented in this encounter Visit Diagnoses Diagnosis Contact with or exposure to viral diseas e Contact with or exposure to other viral diseases documented in this encounter Care Teams Clam Shucker Relationship Specialty Start Date End Date Gagandeep Hinojosa MD PCP - General 05/17/12 [address] [place] [id number] Vane Zarate Psychiatrist Psychiatry 03/22/12 [facility] Psychotherapist 08/04/17 [facility] Hose Stripper 09/13/17 documented as of this encounter
--- OUTSIDE RECORDS SUMMARY | 2022-02-12 12:01 | XMS_ITS | Encounter Summary ---
:1970 Author Organization [employer] Address [address] [place] [address] Care Team Providers Name Role Phone Gagandeep Hinojosa MD Primary Care Provider Reason for Visit Reason Comments Financial Encounter Details Date Type Department Care Team Description 04/08/2020 Care Coord Office Judy Luke RN Financial Visit Medicine [address] [facility] 1415 [facility] . [place] [address] [place] [address] [phone] Social History Tobacco Use Types Packs/Day Years [...] encounter Progress Notes Judy Pittman RN - 04/08/2020 3:30 PM CST Care Coordination Visit Pt: Timur Krishnamurthy Reason for visit: Care Coordination Timur was seen alone. Discussion/actions: Rustam is here today requesting help with applying for pharmaceutical assistance and Medicare Partners. He states he also needs help with applying his VidBide sensor. Insurance Rustam currently has Medicare, plus Part D coverage. He has never had a supplemental plan and unfortunately, he missed Medicare Open Enrollment. Rustam states he legally from his back in November and is now living on his own, they are in the process of getting a divorce. His only income is his Social Security. Therefore, I suggested appplying for Medicare Partners today, as his Social Security is his only income. As long as Rustam receives all his care at a [facility] facility, he will not be financially responsible for the 20% Medicare does not cover. Rustam is still waiting for his Social Security Benefit letter, which should arrive before the end of 2019. In the meantime, we completed the application and will mail it in once he receives the benefit letter. Medication Rustam is taking a regimen of metformin, Tresiba, and Relion R insulin to manage his glucose control.The cost of insulin is very expensive for Rustam, especially now that his income has decreased with the divorce. Therefore, he would like to apply for [employer] to help with the cost of Tresiba and Novolog. I noted that Novolog is a rapid acting insulin, so it will provide much more flexibility and better coverage of his CHO intake with each meal vs his current regular insulin. We completed the application today, but cannot send it in until he receives his Social Security Benefit letter as proof of income. Blood Glucose Rustam has not been SMBG because he lost his Freestyle Bharath reader during his recent move and cannotapply his sensors due to his severe hand tremors. He is receiving assistance through [employer] with the cost of his Bharath supplies. I provided Rustam with a new reader and placed a new sensor today. I offeredto replace Rustam's Bharath sensor every 2 weeks going forward. Follow up I would like to follow up with Rustam once he has BG readings to review, after the holidays. We will also follow up after he receives his new insulin, so I can provide instruction for the new regimen. In the meantime, Rustam will bring in a copy of his Social Security Benefit letter as soon as he receives it. Rustam received verbal instructions and written materials tailored to his preferred method of learning. Literacy level assessed (as appropriate). Interventions, including teach back, used to verify understanding. Patient Goal(s): 1. I need help with my insurance/cost of medical care. Goal: in process 2. I need help with the cost of my insulin. Goal: in process 3. I need help placing my Freestyle Bharath sensors. Goal: met SHARED PLAN: Completed Medicare Partners application. Completed [employer] PAP application. Bring Social Security Benefit letter and fax applications above. Scan BG readings, as directed. Come in to replace Bharath sensors every 14 days. Rustam verbalized understanding and agreed with plan of care and follow up. R CUTTING MACHINE OPERATOR documented in this encounter Plan of Treatment Not on filedocumented as of this encounter Visit Diagnoses Not on filedocumented in this encounter Care Teams Clinical Cytogenetics Director Relationship Specialty Start Date End Date Gagandeep Hinojosa MD PCP - General 05/17/12 [address] [place] [address] Vane Zarate Psychiatrist Psychiatry 03/22/12 [facility] Mental Health Psychotherapist 08/04/17 [facility] Visual Merchandising Associate 09/13/17 documented as of this encounter
--- OUTSIDE RECORDS SUMMARY | 2022-02-12 12:01 | XMS_ITS | Encounter Summary ---
:1970 Author Organization [facility] Address [address] [place] [address] Care Team Providers Name Role Phone Gagandeep Hinojosa MD Primary Care Provider Reason for Visit Reason Comments QUESTIONS, GENERAL Encounter Details Date Type Department Care Team Description 05/10/2020 Telephone [facility] Gagandeep Hinojosa, QUESTIONS, GENERAL [address] [place] [address] [place] [address] (Wo rk) Social History Tobacco Use Types [...] documented as of this encounter Nursing Notes Laureen Avendano RN - 05/10/2020 8:21 PM CST Spoke with pt. Requesting phone number for [place] nurse enrrique as he currently sees psychiatrist with [place] . Provided pt with number as requested. Y MAKER HELPER documented in this encounter Plan of Treatment Not on filedocumented as of this encounter Visit Diagnoses Not on filedocumented in this encounter Care Teams Vp Project Relationship Specialty Start Date End Date Gagandeep Hinojosa MD PCP - General 05/17/12 [address] [facility] [place] [address] Vane Zarate Psychiatrist Psychiatry 03/22/12 [facility] Mental Health Psychotherapist 08/04/17 [facility] Scheduling Specialist 09/13/17 documented as of this encounter
--- OUTSIDE RECORDS SUMMARY | 2022-02-12 12:01 | XMS_ITS | Encounter Summary ---
:1970 Author Organization [employer] Address [address] [place] [address] Care Team Providers Name Role Phone Gagandeep Michaud MD Primary Care Provider Reason for Visit Reason Comments Refill QUEtiapine (SEROQUEL) 200 MG tablet [Pharmacy Med Name: QUETIAPINE FUMARATE 200MG TABS] Encounter Details Date Type Department Care Team Description 03/02/2020 Refill Gagandeep Storm, Rochelle l (QUEtiapine Medicine MD (SEROQUEL) 200 MG tablet [address] [Pharmacy Med Name: KATIANA Vigil [address] KAT[place]NA VIGIL [address] QUETIAPINE FUMARATE [phone] (Wo rk) 200MG TABS]) Social History Tobacco Use Types Packs/Day Years [...] Notes Interface, Out Surescripts Prov Query - 03/02/2020 10:34 AM CST QUEtiapine (SEROQUEL) 200 MG tablet [Pharmacy Med Name: QUETIAPINE FUMARATE 200MG TABS] Medication started: 07/09/2016 Last ordered by GAGANDEEP MICHAUD: 12/10/2019 (83 days ago) QTY: 30, Refills: 1, Sig: take 1 tabletby mouth once daily at bedtime (changed but equivalent) -> Medication cannot be delegated. Last qualifying visit: 01/30/2020 (with GAGANDEEP MICHAUD) Next scheduled visit: None Powered by [employer], Reference: [id number], 03/02/2020 10:34:23 AM JEWELRY FACER, Pool: MANUEL MOORE ([id number]) LRY FACER documented in this encounter Plan of Treatment Not on filedocumented as of this encounter Visit Diagnoses Not on filedocumented in this encounter Care Teams [employer] Foreign Language Tutor Relationship Specialty Start Date End Date Gagandeep Michaud MD PCP - General 05/17/12 [facility] [place]NA Gerber [address] Vane Zarate Psychiatrist Psychiatry 03/22/12 [facility] Health Psychotherapist 08/04/17 [facility] C S S Representative 09/13/17 documented as of this encounter
--- OUTSIDE RECORDS SUMMARY | 2022-02-12 12:01 | XMS_ITS | Encounter Summary ---
:1970 Author Organization [employer] Address [address] [place] [address] Care Team Providers Name Role Phone Gagandeep iHnojosa MD Primary Care Provider Reason for Visit Procedure/Equipment (Routine) - Incomplete Specialty Diagnoses / Procedures Referred By Contact Refer red To Contact Diagnoses Pain of toe of right foot Gagandeep Hinojosa MD Procedures XR Toe Rt 2nd [address] [place] [address] Referral ID Status Reason Start Date Expiration Date Visits V isits Requested Authorized [id number] Incomplete 03/17/2020 06/16/2021 1 1 Encounter Details Date Type Department Care Team Description 03/17/2020 Ancillary Procedure [place] [facility] Gagandeep Hinojosa Pain of toe of right [address] Rubio MD foot [address]. [address] [place] [address] Ave [phone] [place] [address] Social History Tobacco Use Types Packs/Day Years [...] Name Priority Date/Time Associated Diagnosis Comme nts XR TOE RT 2ND 3 Routine 03/17/2020 1:45 PM Pain of toe of righ t Results for this VIEWS TILE HELPER foot procedure are i n the results section. documented in this encounter Results XR Toe Rt 2nd 3 Views (03/17/2020 1:45 PM TILE HELPER) Anatomical Region Laterality Modality Lower Extremity, Foot, Foot & Ankle Digi ora Radiography Specimen (Source) Anatomical Collection Method Collection Time Re ceived Time Location / / Volume Laterality 03/17/2020 1:34 PM TILE HELPER Impressions 03/17/2020 2:23 PM TILE HELPER COMPARISON: ??None. FINDINGS: ??Question impacted second pro [...] Diagnosis Pain of toe of right foot Pain in limb documented in this encounter Care Teams Clinic Charge Nurse Relationship Specialty Start Date End Date Gagandeep Hinojosa MD PCP - General 05/17/12 [address] [place] [address] Vane Zarate Psychiatrsamantha Psychiatry 03/22/12 [facility] Psychotherapist 08/04/17 [facility] Rural Health Consultant 09/13/17 documented as of this encounter
--- OUTSIDE RECORDS SUMMARY | 2022-02-12 12:01 | XMS_ITS | Encounter Summary ---
:1970 Author Organization [employer] Address [address] [place] [address] Care Team Providers Name Role Phone Gagandeep Hinojosa MD Primary Care Provider Reason for Visit Reason Comments LETTER NEEDED Encounter Details Date Type Department Care Team Description 03/12/2020 Telephone [facility] Gagandeep Hinojosa MD LETTER NEEDED [address] [facility] . [address] [facility] [place] [address] [place] [address] [phone] (Wo rk) Social History Tobacco Use Types [...] documented as of this encounter Nursing Notes Abel Novak MA - 03/13/2020 1:57 PM CST Call and notified pt that med list is at the front end engineer ready to be picked up Saumya Ordaz - 03/12/2020 4:02 PM CST Forms & Letters What form/letter are you requesting? Pt would like medication list This letter/other is needed from: aGgandeep Hinojosa MD for linkage line How would you like to receive your completed letter/other? coin machine supervisor at the clinic Additional comments (related to the above concern): Is it okay to leave a detailed message on your voicemail? Yes (Advise caller that the PN call back number will end with [phone] or unknown) (Advise caller letter/other can be faxed, mailed or dropped off. We will complete it as soon as possible and return it to the location you requested. If the request will take longer than 5 business days, we will contact you.) Please route to: BRENT Coates R MATCHER documented in this encounter Plan of Treatment Not on filedocumented as of this encounter Visit Diagnoses Not on filedocumented in this encounter Care Teams Sheet Catcher Relationship Specialty Start Date End Date Gagandeep Hinojosa MD PCP - General 05/17/12 [facility] [place] [address] Vane Zarate Psychiatrist Psychiatry 03/22/12 [facility] Psychotherapist 08/04/17 [facility] Gas Line Installer 09/13/17 documented as of this encounter
--- OUTSIDE RECORDS SUMMARY | 2022-02-12 12:01 | XMS_ITS | Encounter Summary ---
:1970 Author Organization [facility] Address [address] [place] [address] Care Team Providers Name Role Phone Gagandeep Hinojosa MD Primary Care Provider Reason for Visit Reason Comments Forms Insulin Treated Diabetes Swati litus Report Encounter Details Date Type Department Care Team Description 06/12/2020 Telephone [place] [facility] Gagandeep Hinojosa, Forms (Insulin Treated Medicine Diabetes Mellitus [address] [facility] Report ) [place] [id number] [place] [id number] [phone] (Wo rk) Social History Tobacco Use Types [...] encounter Nursing Notes Abel Novak MA - 06/16/2020 6:16 PM CST Form completed and faxed ATION TEACHER Abel Novak MA - 06/13/2020 9:38 AM CST Form filled out and routed to Ashish to sign ATION TEACHER Viviana Anderson - 06/12/2020 12:19 PM CST Forms & Letters What form/letter are you requesting? [facility]ulin [facility] This letter/other is needed from: Gagandeep Hinojosa MD for DMV How would you like to receive your completed letter/other? Fax to [place] [facility] at [facility] at this fax number: [phone] Additional comments (related to the above concern): [...] contact you.) Please route to: BRENT Coates ATION TEACHER documented in this encounter Plan of Treatment Not on filedocumented as of this encounter Visit Diagnoses Not on filedocumented in this encounter Care Teams Railroad Track Inspector Relationship Specialty Start Date End Date Gagandeep Hinojosa MD PCP - General 05/17/[address] [place] [address] Vane Zarate Psychiatrist Psychiatry 03/22/12 [facility] Health Psychotherapist 08/04/17 [facility] Dessert 09/13/17 documented as of this encounter
--- OUTSIDE RECORDS SUMMARY | 2022-02-12 12:01 | XMS_ITS | Encounter Summary ---
:1970 Author Organization [employer] Address [address] [place] [address] Care Team Providers Name Role Phone Gagandeep Hinojosa MD Primary Care Provider Reason for Visit Reason Comments Refill ONETOUCH DELICA lancets; blo od glucose (ONE TOUCH ULTRA BLUE) test strip; insulin regular (NOVOLIN R) 100 UNIT/ML injection Encounter Details Date Type Department Care Team Description 06/05/2020 Refill Gagandeep Storm, Refil l (ONETOUCH DELICA Medicine lancets; blood glucose [address] (ONE TOUCH ULTRA BLUE) KATIANA Velazquez [address] [place] [address] test strip; insulin [phone] (Wo rk) regular (NOVOLIN R) 100 UNIT/ML i njection) Social History Tobacco Use Types Packs/Day Years [...] documented as of this encounter Nursing Notes Brielle Meza RN - 06/06/2020 3:59 PM CST Further Assistance Needed on Refill from Clinician RN reviewed. Signed order needed. Medication previously signed by Dr. Carolyn Bryson. Last visit with PCP: 03-17-2020. Review pended order for accuracy and sign if appropriate Requested Prescriptions Pending Prescriptions Disp Refills ??? insulin regular (NOVOLIN R) 100 UNIT/ML injection 10 mL 11 Sig: Inject 2 units per 15 grams of carb before meals, at least 6 hours apart.Add Sliding Scale +1 unit/50 >150.max is 30 units daily. ??? Insulin Syringe-Needle U-100 (INSULIN SYRINGE 31G X 5/16) 31G X 5/16 1 ML 400 Each 3 Sig: Inject 1 Each subcutaneously 4 times a day. Crisis Center needs Insulin Regular (Novolin R) And Insulin needles and syringes. RECOVERY OPERATOR Marga Leyva - 06/06/2020 9:24 AM CST Medications - Refill Request (unable to re-order) How many medications do you need refilled? (This is if patient has been prescribed this medication previously) Patient needs 3 medications refilled. Med #1 Med #2 Med #3 Name of Medication ONETOUCH DELICA lancets insulin regular (NOVOLIN R) 100 UNIT/ML injection ONE TOUCH ULTRA 2 meter Current Dosage of Medication Directions for use of medication (how often does the pt take this medication) Use 1 Each to test three times a day Inject 2 units per 15 grams of carb before meals, at least 6 hours apart Use to test 4times a day Name of Prescribing clinician MD Gagandeep Mendoza MD Joseph Rinowski, MD Additional comments (related to the above concern) Pt is in need For this refill, patient would like it filled at the pharmacy listed in Meds & Orders. (Verify the pharmacy patient would like to use for this request is highlighted in blue in Pharmacy Selection under Meds & Orders) Is it okay to leave a detailed message on your voicemail? Yes (Advise caller that the PN call back number will end with [phone] or unknown) (Advise caller of turn around time is 2 business days for standard refills and 2 to 5 business days for controlled refills) Please route to: Triage Pool RECOVERY OPERATOR Interface, Out Surescripts Prov Query - 06/05/2020 10:10 AM CST EDEN king Medication started: 06/09/2016 Last ordered by GAGANDEEP HINOJOSA F: 04/01/2020 (65 days ago) QTY: 300, Refills: 3, Sig: use 1 each to test three times a day. (unchanged) -> The patient is requesting a renewal from a different pharmacy. -> Unable to determine if patient is due for a renewal, please review. -> Refill x 12 months (until due for an office visit) -> Calculate the quantity and number of refills manually. Last qualifying visit: 03/17/2020 (with GAGANDEEP HINOJOSA) (A more recent visit (in Family Practice with FAYE DUMONT) was found) Next scheduled visit: None Age: 50 Powered by [employer], Reference: [id number], 06/05/2020 10:10:24 AM Jaxon GRANGER: REINA REFILL WIZARD ADMIN ([id number]) blood glucose (ONE TOUCH ULTRA BLUE) test strip Medication started: 06/09/2016 Last ordered by GAGANDEEP HINOJOSA F: 04/01/2020 (65 days ago) QTY: 300, Refills: 3, Sig: use 1 each to test three times a day. pharmacy dispense brand based on insurance. icd-10: e11.29, e11.65, r80.9, z79.4 (unchanged) -> The request contains a note from the pharmacy. -> The patient is requesting a renewal from a different pharmacy. -> Unable to determine if patient is due for a renewal, please review. -> Refill x 12 months (until due for an office visit) -> Calculate the quantity and number of refills manually. Last qualifying visit: 03/17/2020 (with GAGANDEEP HINOJOSA) (A more recent visit (in Family Practice with FAYE DUMONT) was found) Next scheduled visit: None Age: 50 Powered by [employer], Reference: [id number], 06/05/2020 10:10:24 AM Jaxon GRANGER: PN REFILL WIZARD ADMIN ([id number]) insulin regular (NOVOLIN R) 100 UNIT/ML injection Medication started: 12/09/2014 Last ordered by HAIDER BRYSON L: 10/05/2019 (244 days ago as No Print/No Fill on 10/05/2019 by HAIDER BRYSON.), Sig: inject 2 units per 15 grams of carb before meals, at least 6 hours apart.add slidingscale +1 unit/50 >150.max is 30 units daily. (unchanged) -> Humulin R U-500 must be routed to provider for review -> A qualifying visit was not found within the last 2 years. -> HBA1C is abnormal (11.3 % is greater than 7.9 %) Last qualifying visit: None (A recent visit (in Family Practice with DRIVE-MICHELLE DUMONT) was found) Next scheduled visit: None HBA1C: 11.3 % on 12/04/2019 Powered by [employer], Reference: [id number], 06/05/2020 10:10:24 AM ACID RECOVERY OPERATOR Pool: PN REFILL WIZARD ADMIN ([id number]) Herlinda Smith - 06/05/2020 10:07 AM CST Medications - Refill Request (able to re-order) Name of prescribing clinician: Gagandeep Hinojosa MD Additional comments (related to the above concern): Pt is in crisis center without enough of his meds. Crisis center requesting medications. Pt is almost out of Insulin. Caller thinks pt will be with them for another 5 days at least. For this refill, patient would like it [...] refills) Please route to: Refill Pool (P [id number]) [place] [facility] Pool [place] Patients ONLY (P [id number]) SAMMI Laguerre ONLY (P [id number]) RECOVERY OPERATOR documented in this encounter Plan of Treatment Not on filedocumented as of this encounter Visit Diagnoses Diagnosis Uncontrolled type 2 diabetes mellitus wi th complication, with long-term current use of insulin Uncontrolled type 2 diabetes mellitus wi th microalbuminuria, with long-term current use of insulin Uncontrolled type 2 diabetes mellitus wi th diabetic polyneuropathy, with long-term current use of insulin documented in this encounter Care Teams Psychiatric Secretary Relationship Specialty Start Date End Date Gagandeep Hinojosa MD PCP - General 05/17/12 [address] [facility] [place] Gerber [address] Vane Zarate Psychiatrist Psychiatry 03/22/12 [facility] Psychotherapist 08/04/17 [facility] Tie Presser 09/13/17 documented as of this encounter
--- OUTSIDE RECORDS SUMMARY | 2022-02-12 12:01 | XMS_ITS | Encounter Summary ---
:1970 Author Organization [employer] Address [address] [address] Care Team Providers Name Role Phone Gagandeep Hinojosa MD Primary Care Provider Reason for Referral (Routine) - Closed Specialty Diagnoses / Procedures Referred By Contact Refer red To Contact Diagnoses Other chest pain Kailash Green DO Procedures Outreach Nuclear Study [address] [place] [id number] Referral ID Status Reason Start Date Expiration Date Visits Requ ested Visits Authorized [id number] Closed 06/19/2020 09/18/2021 1 1 INAL CLERK Encounter Details Date Type Department Care Team Description 06/19/2020 Hospital Encounter Heart & Vascular Other chest pain Center Nuclear (Primary Dx) Cardiology [address] [facility] [place] [address] Social History Tobacco Use Types Packs/Day Years [...] on file documented as of this encounter Medications at Time of Discharge Medication Sig Dispensed Refills Start Date End Date amLODIPine (NORVASC) 10 Take 1 Tablet by 90 Tablet 3 2019 MG tabletIndications: mouth daily. Essential hypertension (HRC) aspirin 81 MG chewable TAKE 1 TABLET BY 100 tablet 1 012 tablet MOUTH DAILY . atorvastatin (LIPITOR) Take 1 tablet by 90 Tablet 3 020 80 MG mouth once daily tabletIndications: ASHD (arteriosclerotic heart disease) (HRC), Hyperlipidemia with target LDL less than 70 (HRC) benztropine (COGENTIN) Take 1 Tablet by 60 Tablet 2 021 0.5 MG mouth two times a day tabletIndications: for 30 days. Drug-induced extrapyramidal movement disorder (HRC) blood glucose (ONE Use 1 Each to test 300 Strip 3 0 TOUCH ULTRA BLUE) test three times a day. stripIndications: Pharmacy dispense Uncontrolled type 2 brand based on diabetes mellitus with insurance. ICD-10: microalbuminuria, with E11.29, E11.65, long-term current use R80.9, Z79.4 of insulin Continuous Blood Gluc Use to scan blood 1 Each 0 020 [employer]cast [employer] Producer (FREESTYLE sugars per TALAT 2 READER SYSTLeatt) pediatric sports medicine specialist DEVIIndications: instructions. Uncontrolled type 2 diabetes mellitus with hyperglycemia (HRC) Continuous Blood Gluc Use as directed. 6 Each 4 12/04/19 20 Sensor (FREESTYLE TALAT Change every 14 days. 14 DAY SENSOR) MISCIndications: Uncontrolled type 2 diabetes mellitus with hyperglycemia (HRC) divalproex (DEPAKOTE Take 1,[address]) 250 MG enteric mouth two times a coated tablet day. divalproex (DEPAKOTE Take 2 Tablets by 120 Tablet 0 05/09/19 21 ER) 500 MG 24 hour mouth two times a release tablet day. glucose 4 gram chewable Chew and swallow 4 30 Tablet 1 09/23 tabletIndications: Tablets by mouth once Hypoglycemia (HRC) as needed (Blood sugar less than 70). insulin degludec 200 Inject 32 Units 18 mL 0 06/18/2020 UNIT/ML subcutaneously daily. SOPNIndications: Uncontrolled type 2 diabetes mellitus with hyperglycemia (HRC) insulin degludec 200 Inject 32 Units 12 mL 0 10/08/2019 UNIT/ML subcutaneously daily. SOPNIndications: Uncontrolled type 2 diabetes mellitus with hyperglycemia (HRC) insulin regular Inject 2 units per 15 10 mL 11 1 (NOVOLIN R) 100 UNIT/ML grams of carb before injectionIndications: meals, at least 6 Uncontrolled type 2 hours apart.Add diabetes mellitus with Sliding Scale +1 complication, with unit/50 >150.max is long-term current use 30 units daily. of insulin Insulin Syringe-Needle Inject 1 Each 400 Each 3 06/07/2020 U-100 (INSULIN SYRINGE subcutaneously 4 31G X 5/16) 31G X 5/16 times a day. 1 MLIndications: Uncontrolled type 2 diabetes mellitus with complication, with long-term current use of insulin levOCARNitine TK 3 TS PO QD 5 03/06/2019 (CARNITOR) 330 MG tablet metFORMIN (GLUCOPHAGE) Take 2 Tablets by 360 Tablet 3 2019 500 MG tablet mouth two times a day with meals. multivitamin Take 1 Tablet by 0 (THERAGRAN) tablet mouth. ONE TOUCH ULTRA 2 Use to test 4 times a 1 Each 0 017 meterIndications: day. Uncontrolled type 2 diabetes mellitus with diabetic polyneuropathy, with long-term current use of insulin ONETOUCH DELICA Use 1 Each to test 300 Each 3 04/01/2020 lancetsIndications: three times a day. Uncontrolled type 2 diabetes mellitus with diabetic polyneuropathy, with long-term current use of insulin ONETOUCH ULTRA CONTROL Use to test as 1 Each 11 7 solutionIndications: needed. Uncontrolled type 2 diabetes mellitus with diabetic polyneuropathy, with long-term current use of insulin QUEtiapine (SEROQUEL) TAKE ONE TABLET BY 30 Tablet 1 2019 200 MG tablet MOUTH AT BEDTIME insulin aspart Inject 5-10 Units 45 mL 0 06/18/2020 (NOVOLOG) 100 UNIT/ML subcutaneously three pen times daily before injectionIndications: meals. Uncontrolled type 2 diabetes mellitus with hyperglycemia (HRC) insulin pen needle (BD Inject subcutaneously 100 Each 3 09/04/2020 ULTRAFINE JANET) 32G X 4 as needed for Blood MMIndications: Sugar >. Uncontrolled type 2 diabetes mellitus with microalbuminuria, with long-term current use of insulin metoprolol succinate Take 1 tablet by 90 Tablet 3 0 09/02/2020 (TOPROL XL) 50 MG 24 mouth once daily hour release tabletIndications: Essential hypertension (HRC) risperiDONE (RISPERDAL) TAKE ONE TABLET BY 60 Tablet 1 04/2509/03/2020 3 MG tablet MOUTH TWICE A DAY trihexyphenidyl TAKE 1 TO 2 TABLETS 0 11/21/2019 07/01/2020 (ARTANE) 2 MG tablet BY MOUTH ONCE DAILY NEEDED FOR EPS DISCONTINUE COGENTIN documented as of this encounter Progress Notes Kim Guadarrama - 06/19/2020 12:00 PM TERMINAL CLERK Encounter addended by: Kim Guadarrama on: 06/27/2020 7:07 AM Actions taken: Clinical Note Signed, Result filed INAL CLERK documented in this encounter Procedure Notes Kim Guadarrama - 06/19/2020 12:00 PM CSTAssociated Order(s): OUTREACH NUCLEAR STUDY Results NM CARDIAC MPI STRESS TEST ( (Order [id number]) STRESS TEST PHARMACOLOGICAL ( (Order [id number]) Original Order Diagnosis: Chest pain [R07.9 (ICD-10-CM)] Chest pain, normal EKG Chest pain, normal EKG Reading Provider(s) Sonia Jara MD PACs images are not viewable in [facility]. See text report below. STRESS TEST PHARMACOLOGICAL Order: [id number] Status: Final result Visible to patient: No (not released) Next appt: None Dx: Chest pain Linked study orders: NM CARDIAC MPI STRESS TEST (Order: [id number]) Details Reading Physician Reading Date Result Priority Sonia Jara MD [phone] 06/19/2020 Routine Narrative & Impression STUDY: LEXISCAN NUCLEAR STRESS TEST, 06/19/2020. ORDERING DIAGNOSIS: Chest pain. This is a rest/stress single-isotope, single-photon emission computed tomography imaging performed using pharmacologic stress with gated SPECT imaging performed for the evaluation of known coronary artery disease in a 50-year-old male with risk factors of tobacco use, hyperlipidemia, hypertension, anddiabetes with past history of VA and percutaneous intervention who now presents with chest pain. PHARMACOLOGIC PROCEDURE: Pharmacologic stress testing was performed using the Lexiscan walking protocol. Heart rate was 86 bpm at baseline and shruti to 111 bpm during the Lexiscan walk. Maximum blood pressure was 102/58 for a rate pressure product of 11,322. Resting EKG shows normal sinus rhythm with arate of 86 bpm and no significant ST abnormalities. Stress EKG shows no ST changes and no arrhythmias. Myocardial perfusion imaging was performed at rest following the injection of 10.1 mCi of technetium sestamibi. At peak pharmacologic effect, the patient was injected with 35.3 mCi of technetium sestamibi. Gated post stress imaging was performed. Overall study quality was fair. Left ventricular chamber size is normal. There is a mild to moderatein size, mild in severity, basal inferior fixed defect, which completely resolves with attenuation correction. No ischemia is seen. Left ventricular function shows moderate global hypokinesis with basal inferior akinesis. Calculated ejection fraction is 37%. IMPRESSION: Abnormal myocardial perfusion imaging. There appears to be a small to moderate inferior infarction without ischemia. Left ventricular function is reduced globally with worse function in theinferior wall. This would be a high- risk study. Results were called to Dr. Green. Sonia Jara M.D. Cardiology NARESH/ira Last Resulted: 06/26/20 8:31 AM Order Details View Encounter Lab and Collection Details Routing Result History Hard Copy Result Report Open Hard Copy Results Report Patient Release Status: This result is not viewable by the patient. Patient Information Patient Name Timur Krishnamurthy ([id number]) Sex Male INAL CLERK documented in this encounter Plan of Treatment Not on filedocumented as of this encounter Procedures Procedure Name Priority Date/Time Associated Diagnosis Comme nts OUTREACH NUCLEAR Routine 06/19/2020 12:00 PM Other chest pain Results for this STUDY TERMINAL CLERK procedure are i n the results section. documented in this encounter Results Outreach Nuclear Study (06/19/2020 12:00 PM TERMINAL CLERK) Narrative POCT - 06/19/2020 12:00 PM TERMINAL CLERK Kim Guadarrama ? 06/27/2020 ??7:06 AM Results NM CARDIAC MPI STRESS TEST ( [id number]) (Order [id number]) STRESS TEST PHARMACOLOGICAL (Accession A [id number]) (Order [id number]) Original Order Diagnosis: Chest pain [R0 7.9 (ICD-10-CM)] Chest pain, normal EKG Chest pain, normal EKG Reading Provider(s) Sonia Jara MD PACs images are not viewable in [facility]. See text report below. STRESS TEST PHARMACOLOGICAL Order: [id number] Status: Final result Visible to patient: No (not released) Next appt: None Dx: Chest pain Linked study orders: NM CARDIAC MPI STRE SS TEST (Order: [id number]) Details Reading Physician Reading Date Result Pr willdeepak Sonia Jara MD [phone] 06/19/2020 Routine ?? Narrative & Impression ?? STUDY: LEXISCAN NUCLEAR STRESS TEST, . ORDERING DIAGNOSIS: Chest pain. This is a rest/stress single-isotope, si ngle-photon emission computed tomography imaging performed us ing pharmacologic stress with gated SPECT imaging performed for t he evaluation of known coronary artery disease in a 50-year-old male with risk factors of tobacco use, hyperlipidemia, hyperten nayana, and diabetes with past history of VA and percutaneous inte rvention who now presents with chest pain. PHARMACOLOGIC PROCEDURE: Pharmacologic s tress testing was performed using the Lexiscan walking pro tocol. Heart rate was 86 bpm at baseline and shruti to 111 bpm duri ng the Lexiscan walk. Maximum blood pressure was 102/58 for a rate pressure product of 11,322. Resting EKG shows normal sinus r hythm with a rate of 86 bpm and no significant ST abnormalities. Stress EKG shows no ST changes and no arrhythmias. Myocardial p erfusion imaging was performed at rest following the injectio n of 10.1 mCi of technetium sestamibi. At peak pharmacolo gic effect, the patient was injected with 35.3 mCi of technetium sestamibi. Gated post stress imaging was performed. Overall study quality was fair. Left dieudonne tricular chamber size is normal. There is a mild to moderate in s ize, mild in severity, basal inferior fixed defect, which compl etely resolves with attenuation correction. No ischemia is s een. Left ventricular function shows moderate global hypokines is with basal inferior akinesis. Calculated ejection fraction i s 37%. IMPRESSION: Abnormal myocardial perfusio n imaging. There appears to be a small to moderate inferior infar ction without ischemia. Left ventricular function is reduced eriberto bally with worse function in the inferior wall. This would be a hi gh-risk study. Results were called to Dr. Green. Sonia Jara M.D. Cardiology NARESH/ira ? Last Resulted: 06/26/20 8:31 AM Order D etails View Encounter Lab and Collection Details Routing Result Hi story Hard Copy Result Report Open Hard Copy Results Report Patient Release Status: [facility] Patient Information Patient Name Timur Krishnamurthy ([id number]) Sex Male Procedure Note July - 06/19/2020 12:00 PM CST Results NM CARDIAC MPI STRESS TEST ( [id number]) (Order [id number]) STRESS TEST PHARMACOLOGICAL (Accession A [id number]) (Order [id number]) Original Order Diagnosis: Chest pain [R0 7.9 (ICD-10-CM)] Chest pain, normal EKG Chest pain, normal EKG Reading Provider(s) Sonia Jara MD PACs images are not viewable in [facility]. See text report below. STRESS TEST PHARMACOLOGICAL Order: [id number] Status: Final result Visible to patient: No (not released) Next appt: None Dx: Chest pain Linked study orders: NM CARDIAC MPI STRE SS TEST (Order: [id number]) Details Reading Physician Reading Date Result Pr Sonia Gilbert MD [phone] 06/19/2020 Routine Narrative & Impression STUDY: LEXISCAN NUCLEAR STRESS TEST, . ORDERING DIAGNOSIS: Chest pain. This is a rest/stress single-isotope, si ngle-photon emission computed tomography imaging performed using pharmacologic stress with gated SPECT imaging performed for the evaluation of known coronary artery disease in a 50-year-old male with risk factors of to bacco use, hyperlipidemia, hypertension, and diabetes with past history of VA and percutaneous intervention who now presents with chest pain. PHARMACOLOGIC PROCEDURE: Pharmacologic s tress testing was performed using the Lexiscan walking protocol. Heart rate was 86 bpm at baseline and shruti to 111 bpm during the Lexiscan walk. Maximum blood pressure was 102/58 for a rate pressure product of 11,322. Resti ng EKG shows normal sinus rhythm with a rate of 86 bpm and no significant ST abnormalities. Stress EKG shows no ST changes and no arrhythmias. Myocardial perfusion imaging was performed at rest following the injectio n of 10.1 mCi of technetium sestamibi. At peak pharmacologic effect, the patient was injected with 35.3 mCi of technetium sestamibi. Gated post stress imaging was performed. Overall study quality was fair. Left dieudonne tricular chamber size is normal. There is a mild to moderate in size, mild in severity, basal inferior fixed defect, which completely resolves with attenuation correction. No ischemia is seen. Left ventricular funct ion shows moderate global hypokinesis with basal inferior akinesis. Calculated ejection fraction is 37%. IMPRESSION: Abnormal myocardial perfusio n imaging. There appears to be a small to moderate inferior infarction without ischemia. Left ventricular function is reduced globally with worse function in the inferior wall. This would be a high-risk study. Results were called to Dr. Green. Sonia Jara M.D. Cardiology NARESH/ira Last Resulted: 06/26/20 8:31 AM Order D etails View Encounter Lab and Collection Details Routing Result History Hard Copy Result Report Open Hard Copy Results Report Patient Release Status: This result is not viewable by the [facility]. Patient Information Patient Name Timur Krishnamurthy ([id number]) Sex Male Kailash Green DO PN CARDIAC SERVICES ORDERABL ES Performing Organization Address City/State/ZIP Code Phon e Number POCT documented in this encounter Visit Diagnoses Diagnosis Other chest pain - Primary documented in this encounter Care Teams Evp Business Development Relationship Specialty Start Date End Date Gagandeep Hinojosa MD PCP - General 05/17/12 [address] [facility] [place] [phone] Vane Zarate Psychiatrsamantha Psychiatry 03/22/12 [facility] Psychotherapist 08/04/17 [facility] Electrical Panel Builder 09/13/17 documented as of this encounter
--- OUTSIDE RECORDS SUMMARY | 2022-02-12 12:01 | XMS_ITS | Encounter Summary ---
:1970 Author Organization [facility] Address [address], [place] [address] Care Team Providers Name Role Phone Gagadneep Hinojosa MD Primary Care Provider Reason for Visit Reason Comments Patient Care Coordination Encounter Details Date Type Department Care Team Description 06/24/2020 Care Coord [facility] Deborah Rodrigues Patien t Care Phone Medicine [facility] Coordination [facility] [address] [address] [place] [address] [phone] Social History Tobacco Use Types Packs/Day Years [...] encounter Nursing Notes Deborah Rodrigues LICSW - 06/24/2020 1:55 PM CST Received a phone message from Rustam on 06/20, requesting a call back when I got back in the office. He stated that his sister called the police on him and he has to move out of his place on 06/26. Rustam is requesting assistance with housing. I called Rustam back and left him a message to discuss further. Will wait to hear back from him. 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
--- OUTSIDE RECORDS SUMMARY | 2022-02-12 12:01 | XMS_ITS | Encounter Summary ---
:1970 Author Organization [facility] Address [address] [place] [address] Care Team Providers Name Role Phone Gagandeep Hinojosa MD Primary Care Provider Encounter Details Date Type Department Care Team Description 12/04/2019 Lab Visit [facility] Routine general medical exam ination at health care facility (Primary Dx); [address] Type 2 diabetes mellitus wit h diabetic polyneuropathy, with long-term current use of insulin (HRC); [place] [address] Uncontrolled type 2 diabetes mellitus with hyperglycemia ([facility]); [phone] Diabetes mellit us with complication ([facility]); Diabetes mellit us with neurological manifestations, uncontrolled ([facility]); Diabetic polyne uropathy associated with type 2 diabetes mellitus ([facility]); ASHD (arteriosc lerotic heart disease) Social History Tobacco Use Types Packs/Day Years [...] Name Priority Date/Time Associated Diagnosis Comme nts ALBUMIN/CREAT RATIO Routine 12/04/2019 10:10 Type 2 diabetes R esults for this AM CDT mellitus with diabetic proce dure are in polyneuropathy, with the res ults long-term current use sectio n. of insulin (HRC) Uncontrolled type 2 diabetes mellitus with hyperglycemia ([facility]) Diabetes mellitus with complication (HR C) Diabetes mellitus with neurological manifestations, uncontrolled (HR C) Diabetic polyneuropathy associated with type 2 diabetes mellitus (HRC) HGB A1C, POINT OF Routine 12/04/2019 10:06 Type 2 diabetes Res ults for this CARE AM CDT mellitus with diabetic erwin brown are in polyneuropathy, with the res ults long-term current use sectio n. of insulin (HRC) Uncontrolled type 2 diabetes mellitus with hyperglycemia ([facility]) Diabetes mellitus with complication (HR C) Diabetes mellitus with neurological manifestations, uncontrolled (HR C) Diabetic polyneuropathy associated with type 2 diabetes mellitus (HRC) EXTRA GOLD/SST TUBE Routine 12/04/2019 10:06 Routine general R esults for this AM CDT medical examination at [facility] brown are in health care facility the res ults section. LIPID PANEL AND Routine 12/04/2019 10:06 ASHD (arterioscleroti c Results for this DIRECT LDL(IF AM CDT heart disease) procedure are in NEEDED) Uncontrolled type 2 the resu lts diabetes mellitus with secti on. hyperglycemia (HRC) CREATININE / GFR Routine 12/04/2019 10:06 Type 2 diabetes Resu lts for this AM CDT mellitus with diabetic erwin brown are in polyneuropathy, with the res ults long-term current use sectio n. of insulin (HRC) Uncontrolled type 2 diabetes mellitus with hyperglycemia (H [facility]) Diabetes mellitus with complication (HR C) Diabetes mellitus with neurological manifestations, uncontrolled (HR C) Diabetic polyneuropathy associated with type 2 diabetes mellitus (HRC) documented in this encounter Results (ABNORMAL) Microalb/Creat Ratio - in 3 months (12/04/2019 10:10 AM CDT) P athologist Signature Albumin, 351.2 mg/L 12/04/2019 [place] Urine, Random 3:54 PM CDT LABORATORY Creatinine, 106 >20 mg/dL 12/04/2019 [place] Urine, Random 3:54 PM CDT LABORATORY Albumin/Creati 331 (H) <30 mg/g 12/04/2019 [place] nine Ratio, 3:54 PM CDT LABORATORY Urine, Random Specimen Anatomical Collection Method Collection Time Receive d Time (Source) Location / / Volume Laterality Urine Non-blood 12/04/2019 10:10 12/04/2019 Collection / AM CDT 10:10 AM CDT Unknown Gagandeep Hinojosa MD LAB_1 Performing Organization Address [facility]/ZIP Code Phon e Number [facility] [address] [place], [place] [phone] (ABNORMAL) Lipid Panel and Direct LDL(If Needed) - in 3 months (12/04/2019 10:06 AM CDT) Patholo gist Method Time Signature Cholesterol 116 0 - 199 12/04/2019 [place] mg/dL 4:03 PM CDT LABORATORY Triglyceride 137 <=149 12/04/2019 [place] mg/dL 4:03 PM CDT LABORATORY HDL Cholesterol 35 (L) >=40 mg/dL 12/04/2019 [place] 4:03 PM CDT LABORATORY LDL, Calculated 54 <130 mg/dL 12/04/2019 [place] 4:03 PM CDT LABORATORY Non HDL Chol, 81 mg/dL 12/04/2019 [place] Calculated 4:03 PM CDT LABORATORY Cholesterol/HDL 3.3 12/04/2019 [place] Ratio 4:03 PM CDT LABORATORY Hours Fasting 12 12/04/2019 [facility] 4:03 PM CDT LABORATORY Specimen Anatomical Collection Method / Collection Time Recei abimael Time (Source) Location / Volume Laterality Blood Venipuncture / 12/04/2019 10:06 0 Unknown AM CDT 10:06 AM CDT Gagandeep Hinojosa MD LAB_1 Performing Organization Address City/[facility]/ZIP Code Phon e Number [facility] [address] [place], [place] [phone] [facility] [address] [place] [phone], [facility] Creatinine / GFR - in 3 months (12/04/2019 10:06 AM CDT) P athologist Signature Creatinine 0.80 0.73 - 12/04/2019 [place] 1.18 mg/dL 4:03 PM CDT LABORATORY GFR, Estimated >60 >60 12/04/2019 [place] mL/min/1.7 4:03 PM CDT LABORATORY 3m2 Specimen Anatomical Collection Method / Collection Time Recei abimael Time (Source) Location / Volume Laterality Blood Venipuncture / 12/04/2019 10:06 0 Unknown AM CDT 10:06 AM CDT Gagandeep Hinojosa MD LAB_1 Performing Organization Address City/[facility]/ZIP Code Phon e Number [facility] [address] [place] [phone] (ABNORMAL) POCT Glycosylated Hemoglobin (HB A1C) - in 3 months (12/04/2019 10:06 AM CDT) Patholo gist Method Time Signature Hemoglobin A1C 11.3 (H) <=5.6 % 12/04/2019 [facility] (Rapid) 10:15 AM CDT LABORATORY Specimen Anatomical Collection Method / Collection Time Recei abimael Time (Source) Location / Volume Laterality Blood Venipuncture / 12/04/2019 10:06 0 Unknown AM CDT 10:06 AM CDT [facility] - 12/04/2019 10:15 A M CDT This Rapid A1c test is designed for charlotte toring patients with an established diagnosis of diabetes mellitus. This rapid method is not suitable to establish the initial diagnosis of diabetes mellitus. Performe d using Point of Care Instrumentation. Gagandeep Hinojosa MD LAB_1 Performing Organization Address [facility] Phon e Number [facility] [address] [place] [phone] Extra Gold/SST Tube (12/04/2019 10:06 AM CDT) [facility] Method Time Signature Extra Specimen 12/04/2019 [facility] Gold/SST Tube will be held 12:00 PM CDT LABORATORY Drawn for 5 days Specimen Anatomical Collection Method / Collection Time Recei abimael Time (Source) Location / Volume Laterality Blood Venipuncture / 12/04/2019 10:06 0 Unknown AM CDT 10:06 AM CDT Gagandeep Hinojosa MD LAB_1 Performing Organization Address City/[facility]/ZIP Code Phon e Number [facility] [address] [place] [phone] documented in this encounter Visit Diagnoses Diagnosis Routine [facility] - Primary Routine general medical examination at a [facility] facility Type 2 diabetes mellitus with diabetic p olyneuropathy, with long-term current use of insulin (HRC) Uncontrolled type 2 diabetes mellitus wi th hyperglycemia (HRC) Diabetes mellitus with complication (HRC ) Type II or unspecified type diabetes jasen litus with unspecified complication, not stated as uncontrolled Diabetes mellitus with neurological anastacio festations, uncontrolled Type II or unspecified type diabetes jasen litus with neurological manifestations, uncontrolled Diabetic polyneuropathy associated with type 2 diabetes mellitus ([facility]) ASHD (arteriosclerotic heart disease) ([facility]) Coronary atherosclerosis of unspecified type of vessel, koi or graft documented in this encounter Care Teams Promotion Producer Relationship Specialty Start Date End Date Gagandeep Hinojosa MD PCP - General 05/17/12 [address] [place] [address] Vane Zarate Psychiatrist Psychiatry 03/22/12 [facility] Psychotherapist 08/04/17 [facility] Principal Archaeologist 09/13/17 documented as of this encounter
--- OUTSIDE RECORDS SUMMARY | 2022-02-12 12:01 | XMS_ITS | Encounter Summary ---
:1970 Author Organization [facility] Address [address] [place] [address] Care Team Providers Name Role Phone Gagandeep Michaud MD Primary Care Provider Reason for Visit Reason Comments Refill Insulin Syringe-Needle U-100 (INSULIN SYRINGE 31G X 5/16) 31G X 5/16 1 ML Encounter Details Date Type Department Care Team Description 06/05/2020 Refill [facility] Gagandeep Michaud, Refil l (Insulin Medicine Syringe-Needle U-[address] (INSULIN SYRINGE [address] [place] [address] [place] [address] 5/16) 31G X 5/16 1 ML) [phone] (Wo rk) Social History Tobacco Use Types [...] encounter Nursing Notes Alyssa Porter RN - 06/09/2020 10:38 AM CST Previously pended medication(s) have been addressed or refilled in another encounter or office visit. No further action is needed. Requested Prescriptions No prescriptions requested or ordered in this encounter BBER OPERATOR Interface, Out Whatever Prov Query - 06/05/2020 10:10 AM CST Insulin Syringe-Needle U-100 (INSULIN SYRINGE 31G X /16) 31G X 5/16' 1 ML Medication started: 12/09/2014 Last ordered by GAGANDEEP MICHAUD: 07/26/2017 (1045 days ago) QTY: 400, Refills: 3, Sig: inject 1 each subcutaneously 4 times a day. (unchanged) -> The most recent order on 07/16/2019. -> Refill x 12 months (until due for an office visit) -> Calculate the quantity and number of refills manually. Last qualifying visit: 03/17/2020 (with GAGANDEEP MICHAUD) (A more recent visit (in Family Practice with FAYE DUMONT) was found) Next scheduled visit: None Powered by Lionical, Reference: [id number], 06/05/2020 10:10:25 AM ELKIN Pool: PN REFILL WIZARD ADMIN ([id number]) Herlinda Springer - 06/05/2020 10:10 AM CST COPIED FROM SPLIT REFILL ENCOUNTER Medications - Refill Request (able to re-order) [...] refills) Please route to: Refill Pool (P [id number]) [facility] Pool [facility] ONLY (P [id number]) [facility] ONLY (P [id number]) BBER OPERATOR documented in this encounter Plan of Treatment Not on filedocumented as of this encounter Visit Diagnoses Not on filedocumented in this encounter Care Teams Electroformer Relationship Specialty Start Date End Date Gagandeep Michaud MD PCP - General 05/17/12 [facility] [place] [address] Vane Zarate Psychiatrist Psychiatry 03/22/12 [facility] Psychotherapist 08/04/17 [facility] Cartography Supervisor 09/13/17 documented as of this encounter
--- OUTSIDE RECORDS SUMMARY | 2022-02-12 12:01 | XMS_ITS | Encounter Summary ---
:1970 Author Organization [facility] Address [address] [place] [address] Care Team Providers Name Role Phone Gagandeep Michaud MD Primary Care Provider Reason for Visit Reason Onset Date Comments Refill 05/24/2020 insulin pen needle ( BD ULTRAFINE JANET) 32G X 4 MM Encounter Details Date Type Department Care Team Description 05/24/2020 Refill [facility] Gagandeep Michaud, Refil l (insulin pen Medicine needle (BD ULTRAFINE [address] JANET) 32G X 4 MM) [place] [address] [place] [id number] (Wo rk) Social History Tobacco Use Types [...] encounter Nursing Notes Abbie Mitchell RN - 05/27/2020 7:18 AM CST Renewed medication per medication refill protocol. Requested Prescriptions Signed Prescriptions Disp Refills ??? insulin pen needle (BD ULTRAFINE JANET) 32G X 4 MM 100 Each 3 Sig: Inject subcutaneously as needed for Blood Sugar >. Authorizing Provider: GAGANDEEP MICHAUD Ordering User: ABBIE MITCHELL L MECHANIC Interface, Out Jampp Query - 05/24/2020 11:47 AM CST insulin pen needle (BD ULTRAFINE JANET) 32G X 4 MM Medication started: 12/09/2014 Last ordered by GAGANDEEP MICHAUD F: 12/18/2018 (523 days ago) QTY: 100, Refills: 11, Sig: inject subcutaneously as needed for blood sugar >. (changed) -> Unable to determine if sig has changed, review required. -> Refill x 12 months (until due for an office visit) -> Calculate the quantity and number of refills manually. Last qualifying visit: 03/17/2020 (with GAGANDEEP MICHAUD) (A more recent visit (in Family Practice with FAYE DUMONT) was found) Next scheduled visit: None Powered by [employer]fal[employer], Reference: [id number], 05/24/2020 11:47:11 AM DURAL MECHANIC, Pool: MANUEL REFILL ([id number]) L MECHANIC documented in this encounter Plan of Treatment Not on filedocumented as of this encounter Visit Diagnoses Diagnosis Uncontrolled type 2 diabetes mellitus wi th microalbuminuria, with long-term current use of insulin - Primary documented in this encounter Care Teams Inspector Ball Points Relationship Specialty Start Date End Date Gagandeep Michaud MD PCP - General 05/17/12 [address] [facility] [place] [address] Vane Zarate Psychiatrist Psychiatry 03/22/12 [facility] Psychotherapist 08/04/17 [facility] Chief Innovation Officer 09/13/17 documented as of this encounter
--- OUTSIDE RECORDS SUMMARY | 2022-02-12 12:01 | XMS_ITS | Encounter Summary ---
:1970 Author Organization [email or web address] Address [address] [place] [address] Care Team Providers Name Role Phone Gagandeep Michaud MD Primary Care Provider Reason for Visit Reason Comments Refill risperiDONE (RISPERDAL) 3 MG tablet [Pharmacy Med Name: RISPERIDONE 3MG TABS] Encounter Details Date Type Department Care Team Description 05/08/2020 Refill Gagandeep Storm, Refrose mary l (risperiDONE Medicine MD (RISPERDAL) 3 MG tablet [address] [Pharmacy Med Name: [place] [address] [place] [address] RISPERIDONE 3MG TABS]) [phone] (Wo rk) Social History Tobacco Use Types [...] Notes Interface, Out Surescripts Prov Query - 05/08/2020 12:39 PM CST risperiDONE (RISPERDAL) 3 MG tablet [Pharmacy Med Name: RISPERIDONE 3MG TABS] Medication started: 06/09/2018 Last ordered by GAGANDEEP MICHAUD: 12/27/2019 (133 days ago) QTY: 60, Refills: 1, Sig: take 1 tablet by mouth two times a day. (changed but equivalent) -> Medication cannot be delegated. Last qualifying visit: 03/17/2020 (with GAGANDEEP MICHAUD) (A more recent visit (in Family Practice with DRIVE-UP DUMONT) was found) Next scheduled visit: None Powered by [employer], Reference: [id number], 05/08/2020 12:39:25 PM MUD JACK NOZZLE WORKER, Pool: MANUEL MOORE ([id number]) JACK NOZZLE WORKER documented in this encounter Plan of Treatment Not on filedocumented as of this encounter Visit Diagnoses Not on filedocumented in this encounter Care Teams Accounts Receivable Clerk Relationship Specialty Start Date End Date Gagandeep Michaud MD PCP - General 05/17/[address] [place] [address] [place] [address] Vane Zarate Psychiatrist Psychiatry 03/22/12 [facility] Psychotherapist 08/04/17 [facility] Upholstery Repairer 09/13/17 documented as of this encounter
--- OUTSIDE RECORDS SUMMARY | 2022-02-12 12:01 | XMS_ITS | Encounter Summary ---
:1970 Author Organization [facility] Address [address] [address] Care Team Providers Name Role Phone Gagandeep Hinojosa MD Primary Care Provider Reason for Visit Reason Comments DEPRESSION Encounter Details Date Type Department Care Team Description 01/19/2020 Nurse Triage [facility] Gagandeep Hinojosa MD DEPRESSION [id number] [place] [address] [phone] Social History Tobacco Use Types Packs/Day Years [...] documented as of this encounter Nursing Notes Mis Cai RN - 01/19/2020 4:21 PM CDT Pt called and said he is struggling with depression and anxiety. Pt is getting a divorce, needs to find a place to live by 02/07/20. Pt needs help to get through these difficult times. He is feeling very anxious. Pt said he has exhausted the help lines today. Pt said he is not thinking about hurting himself or others. Nurse scheduled an office visit for 01/22/20. Reason for Disposition ??? Requesting to talk with a counselor (mental health worker, psychiatrist, etc.) Protocols used: [id number] Problem list reviewed as related to this call. documented in this encounter Plan of Treatment Not on filedocumented as of this encounter Visit Diagnoses Not on filedocumented in this encounter Care Teams Security Installation Technician Relationship Specialty Start Date End Date Gagandeep Hinojosa MD PCP - General 05/17/[address] [place], [place] [address] [address] Vane Zarate Psychiatrist Psychiatry 03/22/12 [facility] Psychotherapist 08/04/17 [facility] Owner Manager 09/13/17 documented as of this encounter
--- OUTSIDE RECORDS SUMMARY | 2022-02-12 12:01 | XMS_ITS | Encounter Summary ---
:1970 Author [facility] Address [address] [place] [address] Care Team Providers Name Role Phone Gagandeep Hinojosa MD Primary Care Provider Reason for Referral Consult/Transfer Care (Routine) - Closed Specialty Diagnoses / Procedures Referred By Contact Refer red To Contact Diagnoses Uncontrolled type 2 diabetes mellitus with hyperglycemia (HRC) Gagandeep Hinojosa MD [address] [place] [address] Referral ID Status Reason Start Date Expiration Date Visits Requ ested Visits Authorized [id number] Closed 01/22/2020 07/20/2020 1 1 Scheduling Instructions Your provider has recommended an eye kaylee ointment . This recommended service/s may not be covered by your insurance coverage. W e suggest you call your health insurance company about your coverage and benefits for this appointment. Reason for Visit Reason Comments DEPRESSION ANXIETY Growth on penis Encounter Details Date Type Department Care Team Description 01/22/2020 Office Visit Gagandeep Storm (Primary Dx); Romario Rubio MD Warts, genital; [address] [facility] . [facility] Uncontrolled type 2 diabetes mellitus with hyperglycemia (HRC) [place] [address] [address] [phone] [place] [address] Social History Tobacco Use Types Packs/Day Years [...] Sign Reading Time Taken Comments Blood Pressure 124/82 01/22/2020 11:17 AM CDT Pulse 101 01/22/2020 11:17 AM CDT Temperature - - Respiratory Rate - - Oxygen Saturation - - Inhaled Oxygen Concentration - - Weight 91.4 kg (201 lb 9.6 oz) 01/22/2020 11:17 AM CDT Height - - Body Mass Index 28.93 12/04/2019 10:49 AM CDT documented in this encounter Progress Notes Gagandeep Hinojosa MD - 01/22/2020 11:20 AM CDT ICD-10-CM 1. Anxiety F41.9 busPIRone (BUSPAR) 10 MG tablet 2. Warts, genital A63.0 DESTRUCT BENIGN SKIN LESIONS UP TO 14 25071 3. Uncontrolled type 2 diabetes mellitus with hyperglycemia ([facility]) E11.65 Optometry Consult-Adult/Peds CHIEF COMPLAINT: Chief Complaint Patient presents with ??? DEPRESSION ??? ANXIETY ??? Growth on penis SUBJECTIVE : Timur Krishnamurthy is an 50 y.o. male who presents for numerous concerns. He is having some increased anxiety because of ongoing divorce process difficulty finding housing. Housing difficulties are mainly financial rather than availability. He is working with his social service assistant and his county worker for available facilities. Patient's sister encouraged him to be seen today because of heightened anxiety. However, with questioning, he has made no overt threats, has not harm himself or others, has no plan to harm himself. He is sleeping well, he is maintaining his blood sugars, he is eating. He is planning to start a video chat service with the [facility] psychiatrists and psychologists, but this is not set up until mid January. I have encouraged him to utilize me has , he has about a week early. However,he is having good success with reduction in size. resource in the interim. As long as he is here, hewould like to have his penile wart frozen PROBLEM LIST: Patient Active Problem List Diagnosis Date Noted ??? Non-proliferative diabetic retinopathy ([facility]) 05/02/2019 ??? Hyponatremia 01/16/2018 ??? Tinea versicolor 07/18/2015 ??? Tobacco use disorder ([facility]) 10/26/2012 ??? Anemia 05/02/2012 Overview Note: Anemia, unspecified ??? Microalbuminuria 02/04/2012 ??? MO, old ([facility]) 09/16/2011 ??? History of PTCA 09/16/2011 Overview Note: History of PTCA 04/2011 BMS RCA ??? Obesity, Class I, BMI 30-34.9 ([facility]) 09/16/2011 Overview Note: Body mass index is 31.16 kg/(m^2). ??? Hyperlipidemia with target LDL less than 70 06/08/2011 Overview Note: Hyperlipidemia LDL goal < 70 ??? ASHD (arteriosclerotic heart disease) 05/04/2011 ??? Erectile dysfunction 01/22/2011 Overview Note: side effect Risperdal ??? Type 2 diabetes mellitus, uncontrolled ([facility]) 12/11/2010 Overview Note: Type II or unspecified type diabetes mellitus without mention of complication, uncontrolled ([facility]) ??? Dermatophytosis of body 09/04/2010 Class: Historical Overview Note: Tinea Corporis ??? Coronary atherosclerosis 12/22/2009 Overview Note: LW Modifier: mod RCA, negative nuclear stress test ; CAD ??? Nonspecific abnormal results of liver function study 12/22/2009 Overview Note: Liver Function Tests Abnormal ??? Bipolar I disorder ([facility]) 09/15/2005 Overview Note: LW Onset: 03Aaj00 ; Bipolar I Dis FAMILY HISTORY OR SICK CONTACTS : No family history on file. SOCIAL HISTORY : Social History Tobacco Use ??? Smoking status: Light Tobacco Smoker Packs/day: 0.25 Years: 25.00 Pack years: 6.25 Types: Cigarettes Last attempt to quit: 08/21/2019 Years since quittin.4 ??? Smokeless tobacco: Former User Quit date: 10/25/2012 ??? Tobacco comment: about 2 cigarettes at most Substance Use Topics ??? Alcohol use: No Comment: Alcoholic Drinks/day: Amount:0; Freq:Never; MEDICATIONS : Outpatient Medications Prior to Visit Medication Sig Note Dispense Refill ??? amLODIPine (NORVASC) 10 MG tablet Take 1 Tablet by mouth daily. 90 Tablet 3 ??? ammonium lactate (LAC-HYDRIN) 12 % lotion Apply topically daily. (Patient not taking: Reported on 08/28/2019) 500 mL 11 ??? aspirin 81 MG chewable tablet TAKE [...] E11.65, R80.9, Z79.4 200 Strip 3 ??? Continuous Blood Gluc Pile Driving Nozzleman (wywySTYLE TALAT 2 READER SYSTM) ADÁN Use to scan blood sugars per laborer adjustable steel joist instructions. 1 Each 0 ??? Continuous Blood Gluc Sensor (FREESTYLE TALAT 14 DAY SENSOR) [facility] Use as directed. Change every 14 days. [...] (INSULIN SYRINGE 31G X 09/07) 31G X 09/07 1 ML Inject 1 Each subcutaneously 4 [...] 1 Tablet by mouth. 01/16/2018: Received from: [facility] Received Sig: Take 1 tablet by mouth once daily. ??? ONE TOUCH ULTRA 2 meter Use to test 4 times a day. 1 Each 0 ??? ONETOUCH DELICA lancets Use to test 4 times a day. 400 Each 3 ??? ONETOUCH ULTRA CONTROL solution Use to test as needed. 1 Each 11 ??? QUEtiapine (SEROQUEL) 200 MG tablet TAKE 1 TABLET BY MOUTH ONCE DAILY AT BEDTIME 30 Tablet 1 ??? risperiDONE (RISPERDAL) 3 MG tablet Take 1 Tablet by mouth two times a day. 60 Tablet 1 ??? trihexyphenidyl (ARTANE) 2 MG tablet TAKE 1 TO 2 TABLETS BY MOUTH ONCE DAILY NEEDED FOR EPS DISCONTINUE COGENTIN ??? busPIRone (BUSPAR) 10 MG tablet Take 2 Tablets by mouth two times a day. 360 Tablet 3 ??? insulin degludec (TRESIBA FLEXTOUCH) 200 UNIT/ML SOPN Inject 32 Units subcutaneously daily. 6 mL5 No facility-administered medications prior to visit. ALLERGIES: [...] Gen.: Alert, cooperative in no acute distress. He is relatively calm. Minimal tremor. However, he ispacing a bit more. Vital Signs: BP 124/82 (BP Location: Left Arm, BP Cuff Size: Large) Pulse (!) 101 Wt 201 lb 9.6 oz (91.4 kg) BMI 28.93 kg/m?? Eyes: PERRLA, full EOM. Good eye contact Neck: Supple, without masses, lymphadenopathy or tenderness. Respiratory: Normal respiratory effort. Heart: RRR Abdomen: The abdomen was soft and nondistended, normal sounds present. No obvious masses or organomegaly. Skin: The previously noted penile wart on the ventral surface of the phallus just at the frenulum proximal to the glans is noticeably smaller but still present Neurologic: Appearance: Appropriately dressed Motor ability: Normal station gait, no dysmetria Speech: Spontaneous, controlled, fluent Affect: Very neutral Thought content: [place], fixated on finding housing. Thought process: Logical, analytical, but quite fixated on housing Perception: Seems to be appropriate Intellectual capability: Below average Insight: Below average LABS : ASSESSMENT /PLAN ICD-10-CM 1. Anxiety F41.9 busPIRone (BUSPAR) 10 MG tablet 2. Warts, genital A63.0 DESTRUCT BENIGN SKIN LESIONS UP TO 14 19795 3. Uncontrolled type 2 diabetes mellitus with hyperglycemia ([facility]C) E11.65 Optometry Consult-Adult/Peds Cryotherapy again applied to the penile wart x4. Repeat this therapy in 3 weeks. Follow-up: 1 week by video to reassess documented in this encounter Plan of Treatment Scheduled Referrals Name Type Priority Associated Diagnoses Order S chedule Optometry Referral Routine Uncontrolled type 2 Ordered: 01/22/2020 Consult-Adult/Peds diabetes mellitus with hyperglycemia (HRC) documented as of this encounter Visit Diagnoses Diagnosis Anxiety - Primary Anxiety state, unspecified Warts, genital Condyloma acuminatum Uncontrolled type 2 diabetes mellitus wi th hyperglycemia (HRC) documented in this encounter Care Teams Customs Guard Relationship Specialty Start Date End Date Gagandeep Hinojosa MD PCP - General 05/17/[address] [place] [address] Vane Zarate Psychiatrist Psychiatry 03/22/12 [facility] Psychotherapist 08/04/17 [facility] Planning Rn 09/13/17 documented as of this encounter
--- OUTSIDE RECORDS SUMMARY | 2022-02-12 12:01 | XMS_ITS | Encounter Summary ---
:1970 Author Organization [employer] Address [address], [place] [address] Care Team Providers Name Role Phone Gagandeep Michaud MD Primary Care Provider Reason for Visit Reason Onset Date Comments Refill 07/01/2020 trihexyphenidyl (ART ANE) 2 MG tablet Encounter Details Date Type Department Care Team Description 07/01/2020 Refill [facility] Gagandeep Michaud, Refil l (trihexyphenidyl Medicine (ARTANE) 2 MG tablet) [address] [facility] . [address] [place] [address] [place] [address] (Wo rk) Social History Tobacco Use Types [...] Notes Interface, Out Surescripts Prov Query - 07/01/2020 8:27 AM CST trihexyphenidyl (ARTANE) 2 MG tablet Medication started: 11/21/2019 Last ordered by UNKNOWN, PHYSICIAN: 11/21/2019 (223 days ago as Historical on 12/04/2019 by DANIAL INIGUEZ, Sig: take 1 to 2 tablets by mouth once daily as needed for eps discontinue cogentin (changed) -> The requested medication was previously set to Historical. -> Unable to determine if sig has changed, review required. -> Medication cannot be delegated. -> A qualifying visit was not found within the last 2 years. Last qualifying visit: None (A recent visit (in Family Practice with GAGANDEEP MICHAUD) was found) Next scheduled visit: None Powered by [employer], Reference: [id number], 07/01/2020 8:27:18 AM Minerva GRANGER ([id number]) documented in this encounter Plan of Treatment Not on filedocumented as of this encounter Visit Diagnoses Not on filedocumented in this encounter Care Teams Program Developer Relationship Specialty Start Date End Date Gagandeep Michaud MD PCP - General 05/17/[address] [place] [address] [place] [address] Vane Zarate Psychiatrist Psychiatry 03/22/12 [facility] Psychotherapist 08/04/17 [facility] Drafter Electronic 09/13/17 documented as of this encounter
--- OUTSIDE RECORDS SUMMARY | 2022-02-12 12:01 | XMS_ITS | Encounter Summary ---
:1970 Author Organization [employer] Address [address], [place] [address] Care Team Providers Name Role Phone Gagandeep Hinojosa MD Primary Care Provider Reason for Visit Reason Comments CANCEL APPOINTMENT Encounter Details Date Type Department Care Team Description 06/12/2020 Care Coord Phone Judy Luke R N CANCEL APPOINTMENT [facility] [address] [place] [address] [place] [address] [phone] Social History Tobacco Use Types Packs/Day Years [...] encounter Nursing Notes Judy Pittman RN - 06/12/2020 9:38 AM CST Supervisor Carpenters - Phone Call Contact with: Rustam Reason for call: Care Coordination Discussion/actions: Rustam is calling to cancel his scheduled appt today. He states he isn't feeling well and doesn't want to get me sick. Rustam states he is still in bed. Rustam reports he has a new phone number. He also states he will be moving by the end of the month, but doesn't know where. Rustam is working with his Mental Health Brake Linings Coater to find new housing. Rustam states he has not received his shipment from [facility], but notes he does not need any insulin at this time. He was given a significant supply of insulin following his recent stay at the crisis center. Shared plan: Canceled appt for today and will reschedule at a later date. Rustam verbalized understanding and agreed with plan of care and follow up. NISTRATIVE PROCESSOR documented in this encounter Plan of Treatment Not on filedocumented as of this encounter Visit Diagnoses Not on filedocumented in this encounter Care Teams Senior Ui Software Engineer Relationship Specialty Start Date End Date Gagandeep Hinojosa MD PCP - General 05/17/[address] [place] [address] [place] [address] Vane Zarate Psychiatrist Psychiatry 03/22/12 [facility] Psychotherapist 08/04/17 [facility] Brake Linings Coater 09/13/17 documented as of this encounter
--- OUTSIDE RECORDS SUMMARY | 2022-02-12 12:02 | XMS_ITS | Encounter Summary ---
:1970 Author Organization [employer] Address [address], [place] [address] Care Team Providers Name Role Phone Gagandeep Michaud MD Primary Care Provider Reason for Visit Reason Onset Date Comments Refill 08/24/2019 benztropine (COGENTI N) 1 MG tablet Encounter Details Date Type Department Care Team Description 08/24/2019 Refill [facility] Gagandeep Michaud, Refil l (benztropine Medicine (COGENTIN) 1 MG tablet) [address] [facility] . [address] [place] [address] [place], [place] [address] (Wo rk) Social History Tobacco Use Types Packs/Day Years Used Date Smoking Tobacco: Light Smoker Cigarettes 1 25 Smokeless Tobacco: Former Qu it: 10/25/2012 Comments: Smoking History Packs/day: Alcohol Use Standard Drinks/Week Comments No 0 (1 standard drink = 0.6 oz pure Alcoho lic Drinks/day: Amount:0; alcohol) Freq:Never; Sex Assigned at Date Recorded Not on file documented as of this encounter Nursing Notes Viviana Anderson - 08/27/2019 11:56 AM CDT Lm to schedule an apt for further refills per provider. Gagandeep Michaud MD - 08/24/2019 9:50 AM CDT Call patient Interface, Out Icanbesponsored Prov Query - 08/24/2019 8:34 AM CDT benztropine (COGENTIN) 1 MG tablet -> The medication cannot be found in the patient's medication history. -> Medication cannot be delegated. Last qualifying visit: 06/21/2019 (with GAGANDEEP MICHAUD) Next scheduled visit: 08/28/2019 (in Family Practice) Powered by [employer], Reference: [id number], 08/24/2019 8:34:13 AM CDT, Pool: MANUEL MOORE ([id number]) documented in this encounter Plan of Treatment Not on filedocumented as of this encounter Visit Diagnoses Not on filedocumented in this encounter Care Teams Food Safety Specialist Relationship Specialty Start Date End Date Gagandeep Michaud MD PCP - General 05/17/12 [address] [facility] [place] [address] Vane Zarate Psychiatrist Psychiatry 03/22/12 [facility] Health Psychotherapist 08/04/17 [facility] Delivery Motorcycle Driver 09/13/17 documented as of this encounter
--- OUTSIDE RECORDS SUMMARY | 2022-02-12 12:02 | XMS_ITS | Encounter Summary ---
:1970 Author Organization [facility] Address [address] [place] [address] Care Team Providers Name Role Phone Gagandeep Hinojosa MD Primary Care Provider Reason for Visit Reason Comments HYPOGLYCEMIA Encounter Details Date Type Department Care Team Description 10/05/2019 Nurse Triage [facility] Gagandeep Hinojosa MD HYPOGLYCEMIA [address] [facility] . [address] [facility] [place] [address] [place] [address] [phone] (Wo rk) Social History Tobacco Use Types Packs/Day Years Used Date Smoking Tobacco: Former Cigarettes 1 25 Quit : 08/21/2019 Smokeless Tobacco: Former Qu it: 10/25/2012 Comments: Smoking History Packs/day: Alcohol Use Standard Drinks/Week Comments No 0 (1 standard drink = 0.6 oz pure Alcoho lic Drinks/day: Amount:0; alcohol) Freq:Never; Sex Assigned at Date Recorded Not on file documented as of this encounter Nursing Notes Judy Pittman RN - 10/08/2019 3:22 PM CDT See Care Coordination note from 10/07 for documentation. Brielle Meza RN - 10/05/2019 5:11 PM CDT Mark Pittman RN, Computer Applications Developer as OFE. Appt scheduled to speak with a clinician today. Pt had a BS this morning of 35. He was shaky at the time. He drank juice and his BS came up to 180. He felt better within the hour. Pt has felt well the remainder of the day. Takes Tresiba at HS. Has not had a low BS in the past. Pt denies being ill, having fever or nausea and vomiting. Problem list reviewed as related to this call. Reason for Disposition ? ? Low blood glucose (< 70 mg/dl or 3.9 mmol/l) or symptomatic, now improved with Care Advice AND cause unknown Protocols used: DIABETES - LOW BLOOD [id number] documented in this encounter Plan of Treatment Not on filedocumented as of this encounter Visit Diagnoses Not on filedocumented in this encounter Care Teams Skiff Operator Relationship Specialty Start Date End Date Gagandeep Hinojosa MD PCP - General 05/17/[address] [place] [address] Vane Zarate Psychiatrist Psychiatry 03/22/12 [facility] Psychotherapist 08/04/17 [facility] Firer Electric Locomotive 09/13/17 documented as of this encounter
--- OUTSIDE RECORDS SUMMARY | 2022-02-12 12:02 | XMS_ITS | Encounter Summary ---
:1970 Author Organization [employer] Address [address], [place] [address] Care Team Providers Name Role Phone Gagandeep Hinojosa MD Primary Care Provider Reason for Visit Reason Comments FOLLOW-UP,DIABETES Encounter Details Date Type Department Care Team Description 10/16/2019 Care Coord Office Judy Luke RN FOLLOW-UP,DIABETES Visit [place] [id number] . [place] [address] [place] [phone] Social History Tobacco Use Types Packs/Day Years [...] encounter Progress Notes Judy Pittman RN - 10/16/2019 11:00 AM CDT RN Slicing Machine Feeder Visit Pt: Timur Krishnamurthy Referred by: Gagandeep Hinojosa MD Reason for referral: Diabetes type 2 uncontrolled Most recent vitals signs: Wt Readings from Last 3 Encounters: 06/21/19 200 lb (90.7 kg) 06/11/19 207 lb (93.9 kg) 05/02/19 203 lb 12.8 oz (92.4 kg) BP Readings from Last 3 Encounters: 06/21/19 132/85 06/11/19 137/80 05/02/19 99/59 Most recent lab results: HGB A1C (%) Date Value 01/19/2018 8.0 (H) Hemoglobin A1C (%) Date Value 11/28/2018 10.6 (H) Glycosolated HGB A1C (POC) (%) Date Value 08/15/2017 7.7 (H) Hemoglobin A1C, POCT (%) Date Value 08/28/2019 11.4 (H) Lab Results Component Value Date/Time LDL 40 08/15/2017 08:43 AM Social History Tobacco Use ??? Smoking status: Former Smoker Packs/day: 1.00 Years: 25.00 Pack years: 25.00 Types: Cigarettes Last attempt to quit: 08/21/2019 Years since quittin.1 ??? Smokeless tobacco: Former User Quit date: 10/25/2012 ??? Tobacco comment: Smoking History Packs/day: Substance Use Topics ??? Alcohol use: No Comment: Alcoholic Drinks/day: Amount:0; Freq:Never; Current diabetes medications: Metformin (Glucophage)1,000 mg BID Tresiba (insulin degludec U-200) 32 units daily in PM ReliOn R 3 units/CHO choice 6-12 units BID Relion R Sliding Scale: add 2 units for every 50 points over 200 Aspirin: Yes - 81 mg daily Glucose meter: One Touch Ultra CURRENT GLUCOSE PATTERNS: since 10/11/19 Fastin, 141, 173, 174, 194, 172 Before dinner: 252, 161, 154, 192, 202 Bedtime: 309 (ice cream), 180, 121, 169, 219 Hypoglycemia (previous two weeks): none ASSESSMENT: Due to the COVID-19 pandemic, this visit was completed by telephone. Medication Rustam is currently using a regimen of metformin, along with Tresiba U200 and Relion Regular insulin.Last week, we adjusted his Regular insulin sliding scale from one unit to two units per 50 points >200 and Rustam states it has been working a lot better. Rustam only had four BG readings >200 overthe past week. I stressed the importance of accurate calculations using his unit/CHO ratio, plus hissliding scale, to improve his BG readings. We practiced calculating again, using the readings he provided today. Blood Glucose Rustam continues to SMBG tid, as directed. I thanked him for providing his readings today. I stressedthe importance of consistent testing, as it is the only way to know if his BG readings are at goal or if he needs additional insulin. Also, testing is essential for safety while taking insulin. Rustam un derstands. Diet Rustam states his diet is fairly consistent, typically 45-60 grams of CHO per meal. He knows that when he indulged on ice cream the other evening, it resulted in his BG reading of 309. I noted that Rustam's BG prior to the ice cream was already elevated at 252, so he needed to use his sliding scale in addition to calculating for his portion of ice cream. Under-calculating resulted in the reading >300. In the meantime, Rustam is trying to eat more cheese sticks and Comoran or light yogurt for snacks. I reminded Rustam to resume recording the foods he eaten before BG readings >200. Those notes will help him to know which foods cause his BG readings to increase and allow him to make adjustments the next time he eat those foods. Rustam agreed. Hypoglycemia I reviewed how to use Routine 15 again and Rustam reports he has access to glucose tablets at all times now. Follow up Rustam will focus on his unit/CHO ratio and sliding scale calculations to improve BG readings further. He will continue to record his BG readings. We will follow up next in 2 weeks, sooner if he experiences hypoglycemia or has questions. Family/social support: Patient attended today's visit by telephone. He currently lives with spouse. Current activity regimen: not discussed today Patient barrier(s) to learning identified: Finance and Emotional. BG Goals: Health Long Term Lab Goal <7 Pre-meal: 70-130 mg/dL PPG: [...] current insulin and medication regimen, as prescribed. Carefully count CHO choices to calculate unit/CHO dosing. SMBG as directed, record readings. Phone follow up scheduled on 10/30/19. Rustam to call if symptoms of hypoglycemia or readings < 70 mg/dL. Rustam verbalized understanding and agreed with plan of care and follow up. documented in this encounter Plan of Treatment Not on filedocumented as of this encounter Visit Diagnoses Not on filedocumented in this encounter Care Teams Plastics Fabricator And Assembler Relationship Specialty Start Date End Date Gagandeep Hinojosa MD PCP - General 05/17/[address] [place] [address] Vane Zarate Psychiatrist Psychiatry 03/22/12 [facility] Psychotherapist 08/04/17 [facility] Gospel Singer 09/13/17 documented as of this encounter
--- OUTSIDE RECORDS SUMMARY | 2022-02-12 12:02 | XMS_ITS | Encounter Summary ---
:1970 Author Organization [facility] Address [address] [address] Care Team Providers Name Role Phone Gagandeep Michaud MD Primary Care Provider Reason for Visit Reason Onset Date Comments Refill 08/14/2019 busPIRone (BUSPAR) 1 0 MG tablet Encounter Details Date Type Department Care Team Description 08/14/2019 Refill [facility] Gagandeep Michaud, Rochelle l (busPIRone Medicine (BUSPAR) 10 MG tablet) [address] [facility] . [address] [place] [address] [place], [place] [address] (Wo rk) Social History Tobacco Use Types Packs/Day Years Used Date Smoking Tobacco: Light Smoker Cigarettes 1 25 Smokeless Tobacco: Former Qu it: 10/25/2012 Comments: Smoking History Packs/day: Alcohol Use Standard Drinks/Week Comments No 0 (1 standard drink = 0.6 oz pure Alcoho lic Drinks/day: Amount:0; alcohol) Freq:Never; Sex Assigned at Date Recorded Not on file documented as of this encounter Nursing Notes Denita Reyes RN - 08/16/2019 11:46 AM CDT Further Assistance Needed on Refill from Clinician RN reviewed. Signed order needed. Requested medication listed as historical Last qualifying visit: 06/21/2019? Next scheduled visit: 08/28/2019 Review pended order for accuracy. Sign if appropriate. Document if appointment is needed for furtherrefills. Route to care team to notify patient if needed. Requested Prescriptions Pending Prescriptions Disp Refills ??? busPIRone (BUSPAR) 10 MG tablet 360 Tablet 3 Sig: Take 2 Tablets by mouth two times a day. Interface, Out Surescripts Prov Query - 08/14/2019 4:19 PM CDT busPIRone (BUSPAR) 10 MG tablet Medication started: 12/12/2017 Last ordered by UNKNOWN, PHYSICIAN: 12/12/2017 (610 days ago as Historical on 01/16/2018 by LULI JUSTIN), Sig: take 20 mg by mouth two times a day. (changed) -> This medication may not have been authorized by the requested provider. -> The requested medication was previously set to Historical. -> The requested sig has changed from the last order. -> Refill x 12 months, qty: 360, refills: 3 (until due for an office visit) Last qualifying visit: 06/21/2019 (with GAGANDEEP MICHAUD) Next scheduled visit: 08/28/2019 (in Family Practice) SBP: 132 mm Hg on 06/21/2019 DBP: 85 mm Hg on 06/21/2019 Powered by [employer], Reference: [id number], 08/14/2019 4:19:51 PM CDT, Pool: MANUEL MOORE ([id number]) documented in this encounter Plan of Treatment Not on filedocumented as of this encounter Visit Diagnoses Not on filedocumented in this encounter Care Teams Press Operator Apprentice Relationship Specialty Start Date End Date Gagandeep Michaud MD PCP - General 05/17/[address] [facility] [address] Vane Zarate Psychiatrist Psychiatry 03/22/12 [facility] Psychotherapist 08/04/17 [facility] Oven Drier Tender 09/13/17 documented as of this encounter
--- OUTSIDE RECORDS SUMMARY | 2022-02-12 12:02 | XMS_ITS | Encounter Summary ---
:1970 Author Organization [facility] Address [address] [place] [address] Care Team Providers Name Role Phone Gagandeep Michaud MD Primary Care Provider Reason for Visit Reason Comments Refill atorvastatin (LIPITOR) 80 MG tablet [Pharmacy Med Name: Atorvastatin Calcium 80 MG Oral Tablet]; metoprol ol succinate (TOPROL XL) 50 MG 24 hour release tablet [Pharmacy Med Name: M etoprolol Succinate ER 50 MG Oral Tablet Extended Release 24 Hour] Encounter Details Date Type Department Care Team Description 08/10/2019 Refill [facility] Gagandeep Michaud, Refil l (atorvastatin Medicine MD (LIPITOR) 80 MG tablet [address] [facility] [Pharmacy Med Name: KATIANA Vigil [address] [place] [address] Atorvastatin Calcium 80 [phone] (Wo rk) MG Oral Tablet]; metoprolo l succinate (TOPROL XL) 50 MG 24 hour release ta blet [Pharmacy Med N fabiana: Metoprolol Succ inate ER 50 MG Oral Tabl et Extended Releas e 24 Hour]) Social History Tobacco Use Types Packs/Day Years [...] encounter Nursing Notes Gloria Hdez RN - 08/10/2019 12:37 PM CDT Renewed medication per medication refill protocol. Requested Prescriptions Pending Prescriptions Disp Refills ??? atorvastatin (LIPITOR) 80 MG tablet [Pharmacy Med Name: Atorvastatin Calcium 80 MG Oral Tablet] 90 Tablet 3 Sig: Take 1 tablet by mouth once daily ??? metoprolol succinate (TOPROL XL) 50 MG 24 hour release tablet [Pharmacy Med Name: Metoprolol Succinate ER 50 MG Oral Tablet Extended Release 24 Hour] 90 Tablet 3 Sig: Take 1 tablet by mouth once daily Interface, Out Surescripts Prov Query - 08/10/2019 5:31 AM CDT atorvastatin (LIPITOR) 80 MG tablet [Pharmacy Med Name: Atorvastatin Calcium 80 MG Oral Tablet] Medication started: 01/09/2014 Last ordered by GAGANDEEP MICHAUD F: 07/27/2018 (379 days ago) QTY: 90, Refills: 3, Sig: take 1 tablet by mouth daily. (changed but equivalent) -> Refill x 12 months, qty: 90, refills: 3 (until due for an office visit) Last qualifying visit: 06/21/2019 (with GAGANDEEP MICHAUD) Next scheduled visit: None [facility], Reference: [id number], 08/10/2019 5:31:42 AM CDT, Pool: MANUEL REFILL ([id number]) metoprolol succinate (TOPROL XL) 50 MG 24 hour release tablet [Pharmacy Med Name: Metoprolol Succinate ER 50 MG Oral Tablet Extended Release 24 Hour] Medication started: 01/09/2014 Last ordered by GAGANDEEP MICHAUD: 07/27/2018 (379 days ago) QTY: 90, Refills: 1, Sig: take 1 tablet by mouth daily. (changed but equivalent) -> Refill x 12 months, qty: 90, refills: 3 (until due for an office visit) Last qualifying visit: 06/21/2019 (with GAGANDEEP MICHAUD) Next scheduled visit: None SBP: 132 mm Hg on 06/21/2019 DBP: 85 mm Hg on 06/21/2019 Powered by [employer], Reference: [id number], 08/10/2019 5:31:42 AM CDT, Pool: MANUEL MOORE ([id number]) documented in this encounter Plan of Treatment Not on filedocumented as of this encounter Visit Diagnoses Diagnosis ASHD (arteriosclerotic heart disease) (H RC) Coronary atherosclerosis of unspecified type of vessel, [place] or graft Hyperlipidemia LDL goal < 70 Other and unspecified hyperlipidemia Essential hypertension (HRC) Unspecified essential hypertension documented in this encounter Care Teams Floriculture Professor Relationship Specialty Start Date End Date Gagandeep Michaud MD PCP - General 05/17/12 [facility] [place] [address] Vane Zarate Psychiatrist Psychiatry 03/22/12 [facility] Psychotherapist 08/04/17 [facility] CM Food Checkers And Cashiers Supervisor 09/13/17 documented as of this encounter
--- OUTSIDE RECORDS SUMMARY | 2022-02-12 12:02 | XMS_ITS | Encounter Summary ---
:1970 Author Organization [facility] Address [address], [place] [address] Care Team Providers Name Role Phone Gagandeep Michaud MD Primary Care Provider Reason for Visit Reason Onset Date Comments Refill Refill 09/10/2019 Encounter Details Date Type Department Care Team Description 09/10/2019 Refill [facility] Gagandeep Michaud MD Refill; Refill 1415 [facility] . [address] [place] [address] [place], [place] [address] (Wo rk) Social History Tobacco Use Types [...] Notes Interface, Out Surescripts Prov Query - 09/10/2019 12:30 PM CDT TRESIBA FLEXTOUCH 200 UNIT/ML SOPN [Pharmacy Med Name: Tresiba FlexTouch 200 UNIT/ML Subcutaneous Solution Pen-injector] Medication started: 02/26/2016 Last ordered by GAGANDEEP MICHAUD F: 08/01/2018 (405 days ago) QTY: 6, Refills: 5, Sig: inject 32 units subcutaneously daily. (changed) -> The requested strength (200 unt/ml pen injector) was last ordered on 08/01/2018. The patient is taking 100 unt/ml pen injector as of 06/21/2019. -> This medication was discontinued on 06/21/2019 by GAGANDEEP MICHAUD. -> The requested sig has changed from the last order. -> Medication cannot be delegated. Last qualifying visit: 08/28/2019 (with GAGANDEEP MICHAUD) Next scheduled visit: None Powered by [employer], Reference: [id number], 09/10/2019 12:30:20 PM CDT, Pool: MANUEL MOORE ([id number]) documented in this encounter Plan of Treatment Not on filedocumented as of this encounter Visit Diagnoses Diagnosis Uncontrolled type 2 diabetes mellitus wi th complication, with long-term current use of insulin documented in this encounter Care Teams Leg Breaker Relationship Specialty Start Date End Date Gagandeep Michaud MD PCP - General 05/17/12 [address] [address] Vane Zarate Psychiatrist Psychiatry 03/22/12 [facility] Psychotherapist 08/04/17 [facility] Manager Of Information 09/13/17 documented as of this encounter
--- OUTSIDE RECORDS SUMMARY | 2022-02-12 12:02 | XMS_ITS | Encounter Summary ---
:1970 Author Organization [facility] Address [address] [address] Care Team Providers Name Role Phone Gagandeep Hinojosa MD Primary Care Provider Reason for Visit Reason Comments FOLLOW-UP,DIABETES Encounter Details Date Type Department Care Team Description 09/24/2019 Care Coord Office Judy Luke RN FOLLOW-UP,DIABETES Visit Medicine [facility] . [place] [address] [place] [phone] [address] Social History Tobacco Use Types Packs/Day Years [...] as of this encounter Progress Notes Judy Pittman, JOSETTE - 09/24/2019 9:00 AM CDT Left message requesting a return call. Please transfer to [phone]. Unable to reach Rustam after multiple attempts and messages left. Provided contact information and encouraged to call back to review BG readings. documented in this encounter Plan of Treatment Not on filedocumented as of this encounter Visit Diagnoses Not on filedocumented in this encounter Care Teams Grooming Salon Manager Relationship Specialty Start Date End Date Gagandeep Hinojosa MD PCP - General 05/17/12 [address] [facility] [place] [address] Vane Zarate Psychiatrist Psychiatry 03/22/12 [facility] Psychotherapist 08/04/17 [facility] Ethnic Studies Professor 09/13/17 documented as of this encounter
--- OUTSIDE RECORDS SUMMARY | 2022-02-12 12:02 | XMS_ITS | Encounter Summary ---
:1970 Author Organization [facility] Address [address], [place] [address] Care Team Providers Name Role Phone Gagandeep Hinojosa MD Primary Care Provider Reason for Referral (Routine) - Closed Specialty Diagnoses / Procedures Referred By Contact Refer red To Contact Diagnoses Atrial fibrillation, unspecified type (HRC) Zara Fox MD Procedures OUTREACH ZIOPATCH RECORDER [email or web address] [place], [place] [address] Referral ID Status Reason Start Date Expiration Date Visits Requ ested Visits Authorized [id number] Closed 07/12/2019 10/10/2020 1 1 Encounter Details Date Type Department Care Team Description 07/04/2019 Hospital Encounter [facility] fibrillation, Center unspecified typ e (HRC) Electrocardiogram, (Primary Dx) Holter, Event Record er [address] [place] [address] Social History Tobacco Use Types Packs/Day Years [...] Sig Dispensed Refills Start Date End Date aspirin 81 MG chewable TAKE 1 TABLET BY MOUTH 100 tablet 1 0 08/13/2011 tablet DAILY . divalproex (DEPAKOTE Take 1,000 mg by mouth 0 DR) 250 MG enteric two times a day. coated tablet levOCARNitine TK 3 TS PO QD 5 03/06/2019 (CARNITOR) 330 MG tablet multivitamin Take 1 Tablet by 0 (THERAGRAN) tablet mouth. ONE TOUCH ULTRA 2 Use to test 4 times a 1 Each 0 017 meterIndications: day. Uncontrolled type 2 diabetes mellitus with diabetic polyneuropathy, with long-term current use of insulin ONETOUCH ULTRA CONTROL Use to test as needed. 1 Each 11 0 06/09/2016 solutionIndications: Uncontrolled type 2 diabetes mellitus with diabetic polyneuropathy, with long-term current use of insulin ALPRAZolam (XANAX) 1 5 07/26/201809/23 MG tablet amLODIPine (NORVASC) Take 1 Tablet by mouth 90 Tablet 3 12/04/2019 10 MG daily. tabletIndications: Essential hypertension (HRC) ammonium lactate Apply topically daily. 500 mL 11 018 03/17/2020 (LAC-HYDRIN) 12 % lotion atorvastatin (LIPITOR) Take 1 Tablet by mouth 90 Tablet 3 0 07/27/2018 08/10/2019 80 MG daily. tabletIndications: ASHD (arteriosclerotic heart disease) (HR), Hyperlipidemia with target LDL less than 70 (HR) blood glucose (ONE Use to test two times 200 Strip 3 201704/01/2020 TOUCH ULTRA BLUE) test a day. Pharmacy stripIndications: dispense brand based Uncontrolled type 2 on insurance. ICD-10: diabetes mellitus with E11.29, E11.65, R80.9, microalbuminuria, with Z79.4 long-term current use of insulin busPIRone (BUSPAR) 10 Take 20 mg by mouth 2 12/1208/14/2019 MG tablet two times a day. insulin degludec 100 Inject 42 Units 0 09/13/2019 UNIT/ML SOPN subcutaneously daily at bedtime. insulin pen needle (BD Inject subcutaneously 100 Each 11 05/24/2020 ULTRAFINE JANET) 32G X as needed for Blood 4 MMIndications: Sugar >. Uncontrolled type 2 diabetes mellitus without complication, without long-term current use of insulin insulin regular Inject 2 units per 15 10 mL 11 9 10/05/2019 (NOVOLIN R) 100 grams of carb before UNIT/ML bk & din, at least 6 injectionIndications: hours apart.Add Uncontrolled type 2 Sliding Scale +1 diabetes mellitus with unit/50 >150.max is 30 complication, with units daily. long-term current use of insulin Insulin Syringe-Needle Inject 1 Each 400 Each 3 07/26/2017 06/06/2020 U-100 (INSULIN SYRINGE subcutaneously 4 times 31G X 09/07) 31G X a day. 09/07 1 MLIndications: Uncontrolled type 2 diabetes mellitus without complication, with long-term current use of insulin levOCARNitine Take 330 mg by mouth. 0 06/16/2019 08/28/2019 (CARNITOR) 330 MG tablet lithium carbonate 300 Take 300 mg by mouth 0 12/2408/28/2019 MG capsule daily. metFORMIN (GLUCOPHAGE) TAKE 2 TABLETS BY 360 Tablet 0 201910/04/2019 500 MG MOUTH TWICE DAILY WITH tabletIndications: MEALS Uncontrolled type 2 diabetes mellitus without complication, without long-term current use of insulin metoprolol succinate Take 1 Tablet by mouth 90 Tablet 1 07/201808/10/2019 (TOPROL XL) 50 MG 24 daily. hour release tabletIndications: Essential hypertension (HRC) ONETOUCH DELICA Use to test 4 times a 400 Each 3 7 04/01/2020 lancetsIndications: day. Uncontrolled type 2 diabetes mellitus with diabetic polyneuropathy, with long-term current use of insulin QUEtiapine (SEROQUEL) Take 200 mg by mouth 0 12/2408/14/2019 200 MG tablet daily at bedtime. risperiDONE 3 mg two times a day. 0 06/09/2018 (RISPERDAL) 3 MG tablet documented as of this encounter Plan of Treatment Not on filedocumented as of this encounter Procedures Procedure Name Priority Date/Time Associated Diagnosis Comme nts OUTREACH ZIOPATCH Routine 07/04/2019 11:25 AM Atrial fibrillat ion, Results for this RECORDER CDT unspecified type procedure a re in ([facility]) the results section. documented in this encounter Results OUTREACH ZIOPATCH RECORDER (07/04/2019 11:25 AM CDT) Narrative POCT - 07/04/2019 11:25 AM CDT Zio XT Final Report for Timur Krishnamurthy Date of : [birth year] (49 yrs) Gender: Male Prescribing Clinician: Dr. Ofelia Fox Referring Clinician: Dr. Scar Hinojosa Managing Location: [facility] Primary Indication (I48.91): Unspecified atrial fibrillation Enrollment Period 06/20/19, 10:34am to 07/04/19, 11:34am 14 days 0 hours Analysis Time 14 days 0 hours (after artifact removed) Total Triggers: 0 Total Diaries: 0 Longest Ventricular Bigeminy Episode 0 s Longest Ventricular Trigeminy Episode 0 s Preliminary Findings Patient had a min HR of 52 bpm, max HR o f 142 bpm, and avg HR of 80 bpm. Predominant underlying rhythm was Sinus Rhythm. Isolated SVEs were rare (<1.0%), SVE Cou plets were rare (<1.0%), and SVE Triplets were rare (<1.0%). Isolated VEs were rare (<1.0%), and no V E Couplets or VE Triplets were present. Comment: Zio is unremarkable. DARLENE Briggs MD Zara Fox MD PN ECG ORDERABLES Performing Organization Address City/State/ZIP Code Phon e Number POCT documented in this encounter Visit Diagnoses Diagnosis Atrial fibrillation, unspecified type (H RC) - Primary documented in this encounter Care Teams Electrician Constructor Supervisor Relationship Specialty Start Date End Date Gagandeep Hinojosa MD PCP - General 05/17/[address] [facility] [place] [address] Vane Zarate Psychiatrist Psychiatry 03/22/12 [facility][1] Psychotherapist 08/04/17 [facility] Harpooner 09/13/17 documented as of this encounter
--- OUTSIDE RECORDS SUMMARY | 2022-02-12 12:02 | XMS_ITS | Encounter Summary ---
:1970 Author Organization [facility] Address [address] [place] [address] Care Team Providers Name Role Phone Gagandeep Michaud MD Primary Care Provider Reason for Visit Reason Onset Date Comments Refill 09/13/2019 insulin degludec (TR ESIBA FLEXTOUCH) 200 UNIT/ML SOPN Encounter Details Date Type Department Care Team Description 09/13/2019 Refill Gagandeep Storm Refil l (insulin degludec Medicine (TRESIBA FLEXTOUCH) [address] UNIT/ML SOPN) [place]NA Vigil [address] [place] [address] [phone] (Wo rk) Social History Tobacco Use Types [...] Notes Interface, Out Surescripts Prov Query - 09/13/2019 2:39 PM CDT insulin degludec (TRESIBA FLEXTOUCH) 200 UNIT/ML SOPN Medication started: 02/26/2016 Last ordered by GAGANDEEP MICHAUD: 09/10/2019 (3 days ago) QTY: 6, Refills: 5, Sig: inject 32 unitssubcutaneously once daily (changed) -> The request contains a note from the pharmacy. -> The requested sig has changed from the last order. -> Medication cannot be delegated. Last qualifying visit: 08/28/2019 (with GAGANDEEP MICHAUD) Next scheduled visit: None Powered by [employer], Reference: [id number], 09/13/2019 2:38:57 PM CDT, Pool: MANUEL REFILL ([id number]) Amelia Conway MA - 09/13/2019 2:37 PM CDT Fax received from pt's pharmacy, in regards to TRESIBA, with the following message: 1 box is 9mL and we cannot break boxes. Please resend Rx with updated quantity. Please advise, thank you. documented in this encounter Plan of Treatment Not on filedocumented as of this encounter Visit Diagnoses Diagnosis Uncontrolled type 2 diabetes mellitus wi th complication, with long-term current use of insulin documented in this encounter Care Teams Joint Runner Relationship Specialty Start Date End Date Gagandeep Michaud MD PCP - General 05/17/12 14[address] [facility] [place] [address] Vane Zarate Psychiatrsamantha Psychiatry 03/22/12 [facility] Psychotherapist 08/04/17 [facility] Strategic Sourcing Specialist 09/13/17 documented as of this encounter
--- OUTSIDE RECORDS SUMMARY | 2022-02-12 12:02 | XMS_ITS | Encounter Summary ---
:1970 Author Organization [facility] Address [address] [place] [address] Care Team Providers Name Role Phone Gagandeep Michaud MD Primary Care Provider Reason for Visit Reason Comments Refill risperiDONE (RISPERDAL) 3 MG tablet [Pharmacy Med Name: risperiDONE 3 MG Oral Tablet] Encounter Details Date Type Department Care Team Description 10/28/2019 Refill Gagandeep Storm, Refrose mary l (risperiDONE Medicine MD (RISPERDAL) 3 MG tablet [address] [facility] [Pharmacy Med Name: Yaritza [place] [address] [address] [place] [address] risperiDONE 3 MG Oral [phone] (Wo rk) Tablet]) Social History Tobacco Use [...] Notes Interface, Out Surescripts Prov Query - 10/28/2019 2:48 PM CDT risperiDONE (RISPERDAL) 3 MG tablet [Pharmacy Med Name: risperiDONE 3 MG Oral Tablet] Medication started: 06/09/2018 Last ordered by GAGANDEEP MICHAUD: 08/24/2019 (65 days ago) QTY: 60, Refills: 1, Sig: take 1 tabletby mouth two times a day. (changed but equivalent) -> Medication cannot be delegated. Last qualifying visit: 08/28/2019 (with GAGANDEEP MICHAUD) Next scheduled visit: None Powered by [employer], Reference: [id number], 10/28/2019 2:48:42 PM CDT, Pool: MANUEL REFILL ([id number]) documented in this encounter Plan of Treatment Not on filedocumented as of this encounter Visit Diagnoses Not on filedocumented in this encounter Care Teams Family And Consumer Sciences Teacher Relationship Specialty Start Date End Date Gagandeep Michaud MD PCP - General 05/17/[address] [place] [address] [place] [address] Vane Zarate Psychiatrist Psychiatry 03/22/12 [facility] Psychotherapist 08/04/17 [facility] Top Knitter 09/13/17 documented as of this encounter
--- OUTSIDE RECORDS SUMMARY | 2022-02-12 12:02 | XMS_ITS | Encounter Summary ---
:1970 Author Organization [employer] Address [address], [place] [address] Care Team Providers Name Role Phone Gagandeep Hinojosa MD Primary Care Provider Reason for Visit Reason Comments FOLLOW-UP,DIABETES Encounter Details Date Type Department Care Team Description 09/10/2019 Care Coord Office Judy Luke RN FOLLOW-UP,DIABETES Visit Medicine [facility] [address] . [place] [address] [place] [phone] [id number] Social History Tobacco Use Types Packs/Day Years Used Date Smoking Tobacco: Former Cigarettes 05 19 Quit : 08/21/2019 Smokeless Tobacco: Former Qu it: 10/25/2012 Comments: Smoking History Packs/day: Alcohol Use Standard Drinks/Week Comments No 0 (1 standard drink = 0.6 oz pure Alcoho lic Drinks/day: Amount:0; alcohol) Freq:Never; Sex Assigned at Date Recorded Not on file documented as of this encounter Progress Notes Judy Pittman RN - 09/10/2019 1:00 PM CDT RN Energy Conservation Engineer Visit Pt: Timur Krishnamurthy Referred by: Gagandeep [...] Last attempt to quit: 08/21/2019 Years since quittin.0 ??? Smokeless tobacco: Former User Quit date: 10/25/2012 ??? Tobacco comment: Smoking History Packs/day: Substance Use Topics ??? Alcohol use: No Comment: Alcoholic Drinks/day: Amount:0; Freq:Never; Current diabetes medications: Metformin (Glucophage)1,000 mg BID Tresiba (insulin degludec U-200) 32 units daily in PM ReliOn R 3 units/CHO choice 6-12 units BID Aspirin: Yes - 81 mg daily Glucose meter: One Touch Ultra CURRENT GLUCOSE PATTERNS: since 09/03/19 Fastin, 152, 153, 145, 139, 133, 141, 135 Before dinner: 170, 173, 231, 312, 268, 217, 153 Bedtime: 153, 162, 180, 142, 143, 145, 149 Hypoglycemia (previous two weeks): none ASSESSMENT: Due to the COVID-19 pandemic, this visit was completed by telephone. Rustam was referred for Care Coordination services by Dr Hinojosa to assist with DM management and insulin titration. Financial Edwin reports his relationship with his is better because his mental health has improved and they are doing better financially. He is unable to work right now due to COVID-19, but they recently received $1,200 from the Federal Relief package, which is helping to pay bills. Insurance Rustam and I have reviewed his medical insurance options many times over the years. He still has straight Medicare and Part D through [employer], so he is responsible for the 20% Medicare does not cover, which is expensive. Because his combined annual household income is over $75,000, Rustam is over income for [place] [facility]. I still feel that Rustam would benefit from Medicare supplemental coverage, but he won't be eligible to apply until Medicare Open Enrollment in January. Medication Rustam reports Tresiba is his most expensive medication, his co-pay is $75 for a 3 month supply. Overall, Rustam's BG readings have improved significantly and do not reflect his recent A1c result of 11.4%. He attributes the improvement to taking his insulin more consistently. Rustam states he is very consistent with his Tresiba, but admits he misses 1-2 doses or more of Regular insulin per week. I encouraged Rustam to try to make taking his insulin before meals part of his routine to improve his glucosecontrol. He agrees. Also, Rustam could use some additional insulin, so I recommended increasing his dose to 34 units daily, to help lower all his readings throughout the day. I mentioned to Dr Hinojosa that Rustam would also benefit from U200 insulin to help increase absorption, he agreed and provided anew prescription. In addition, Rustam needs more insulin before breakfast to help lower his preprandial readings in the evening, but I advised only increasing one insulin at a time. If his before dinnerreadings are still >200, he should try increasing his Regular morning dose 1 unit. Blood Glucose Rustam admitted that he had not been consistently SMBG, but resumed checking per my request. I thanked him for providing his readings today. I praised Rustam for the significant improvement in his readings. I stressed that the only way to know if his BG readings are at goal or if he needs additional insulin, is to test. Also, testing is essential for safety while taking insulin. Rustam understands. Diet Rustam states he eats 3 meals a day and tries to stay at 45 grams of CHO per meal. He knows that eating pasta, snacks, cookies, and an occasional regular soda, all cause his BG readings to increase. So,Rustam is trying to eat more cheese sticks and Nepali or light yogurt instead. I reminded Rustam to resume recording the foods he eaten before BG readings >200. Those notes will help him to know which foods cause his BG readings to increase and allow him to make adjustments the next time he eat those foods. Rustam agreed. Mental Health Rustam reports his psychiatrist, Dr Vane Huff, recently retired. He continues to receive Mental Health Case Management and therapy through [facility], but will need a new psychiatrist. Rustam would like to stay at [facility], if possible. We called [facility] together and were advised that the intake visit must be a video visit, but Rustam does not have the technology for a video visit. The car construction superintendent agrees to message some providers to see if they will make an exception. Follow up Rustam will adjust his insulin and continue to record his BG readings. We will follow up next week, sooner if he experiences hypoglycemia or has questions. Family/social support: Patient attended today's visit by telephone. He currently lives with spouse. Current activity regimen: not discussed today Patient barrier(s) to learning identified: Finance and Emotional. BG Goals: Health Usp Lab Goal <7 Pre-meal: 70-130 mg/dL PPG: <180 mg/dL Bedtime: 90-150 mg/dL A1c: <7.0% Recommended testing frequency: Before each meal and before HS Snack Education content covered today: Hypoglycemia Hyperglycemia BG Monitoring Diet Edwin received verbal instructions and written materials tailored to his preferred method of learning. Literacy level assessed (as appropriate). Interventions, including teach back, used to verify understanding. SHARED PLAN: Per DM SO, increase Tresiba to 34 units daily. If BG is still >200 before dinner, increase Regular AM dose 1 unit. SMBG as directed, record readings. Schedule appt with Behavioral Health. Phone follow up scheduled on 09/18/19. Rustam to call if symptoms of hypoglycemia or readings < 70 mg/dL. Rustam verbalized understanding and agreed with plan of care and follow up. documented in this encounter Plan of Treatment Not on filedocumented as of this encounter Visit Diagnoses Not on filedocumented in this encounter Care Teams Shaker Repairer Relationship Specialty Start Date End Date Gagandeep Hinojosa MD PCP - General 05/17/12 [facility] [place] [address] Vane Zarate Psychiatrist Psychiatry 03/22/12 [facility] Mental Health Psychotherapist 08/04/17 [facility] Gifted Program Teacher 09/13/17 documented as of this encounter
--- OUTSIDE RECORDS SUMMARY | 2022-02-12 12:02 | XMS_ITS | Encounter Summary ---
:1970 Author Organization [employer] Address [address] [place] [address] Care Team Providers Name Role Phone Gagandeep Hinojosa MD Primary Care Provider Reason for Visit Reason Comments RESULTS, TEST Encounter Details Date Type Department Care Team Description 07/12/2019 Telephone [facility] [facility] Gagandeep Hinojosa MD RESULTS, TEST [address] [facility] . [address] [place] [address] [place] [address] [phone] (Wo rk) Social History Tobacco Use Types Packs/Day Years Used Date Smoking Tobacco: Light Smoker Cigarettes 1 25 Smokeless Tobacco: Former Qu it: 10/25/2012 Comments: Smoking History Packs/day: Alcohol Use Standard Drinks/Week Comments No 0 (1 standard drink = 0.6 oz pure Alcoho lic Drinks/day: Amount:0; alcohol) Freq:Never; Sex Assigned at Date Recorded Not on file documented as of this encounter Nursing Notes Eliz Guerra LPN - 07/12/2019 1:38 PM CDT Patient notified, Gagandeep Hinojosa MD - 07/12/2019 12:27 PM CDT Please call pt. Ziopatch was normal, no cardiac rhythm abnormalities documented in this encounter Plan of Treatment Not on filedocumented as of this encounter Visit Diagnoses Not on filedocumented in this encounter Care Teams Machinist Helper Relationship Specialty Start Date End Date Gagandeep Hinojosa MD PCP - General 05/17/12 [address] [facility] [place] [address] Vane Zarate Psychiatrist Psychiatry 03/22/12 [facility] Mental Health Psychotherapist 08/04/17 [facility] Assembly Stock Supervisor 09/13/17 documented as of this encounter
--- OUTSIDE RECORDS SUMMARY | 2022-02-12 12:02 | XMS_ITS | Encounter Summary ---
:1970 Author Organization [employer] Address [address] [place] [address] Care Team Providers Name Role Phone Gagandeep Hinojosa MD Primary Care Provider Reason for Referral Consult/Transfer Care (Routine) - Closed Specialty Diagnoses / Procedures Referred By Contact Refer red To Contact Diagnoses Type 2 diabetes mellitus with diabetic polyneuropathy, with long-term current use of insulin (HRC) Gagandeep Hinojosa MD [address] [facility] [place] [address] Referral ID Status Reason Start Date Expiration Date Visits Requ ested Visits Authorized [id number] Closed 08/28/2019 11/26/2020 1 1 Scheduling Instructions Your provider has recommended an appoint ment with [facility]. You may call [phone] to schedule your appoi ntment. If you do not schedule an appointment within the next 1 to 3 business days, we will call you. Reason for Visit Reason Onset Date Comments MEDICATION CHECK Phone Visit 08/28/2019 Encounter Details Date Type Department Care Team Description 08/28/2019 Phone Visit Gagandeep Storm Type 2 d iabetes mellitus with diabetic polyneuropathy, with long-term current use of insulin (HRC) (Primary Dx); Romario Rubio MD Bipolar I disorder (HRC); [address] [facility] Tobacco use disorder; [place] [address] Avelvira Drug-induced tremor; [phone] [place] Essential hyper tension; [address] Non-proliferative diabetic retinopathy ( [facility]); [phone] ASHD (arteriosc lerotic heart disease); (Work) Uncontrolled type 2 diabetes mellitus wi th hyperglycemia ([facility]); [phone] Diabetes carlos montes with complication ([facility]); (Fax) Diabetes carlos montes with neurological manifestations, uncontrolled (HR); Diabetic polyne uropathy associated with type 2 diabetes mellitus ([facility]) Social History Tobacco Use Types Packs/Day Years [...] encounter Progress Notes Gagandeep Hinojosa MD - 08/28/2019 2:40 PM CDT Subjective: Phone visit done 08/28/19 with Timur regarding diabetes check. Despite patient's attempts, his A1c has risen again. Has continued smoking. His psychiatrist retired, and he continues to need refills on his psychotropic medication. Blood sugars: Patient has been checking blood sugars. Blood sugars have not been at goal. No symptomatic highs or lows. Patient indicates that his meter long- term average is 220. Last Blood Pressure was at goal. Cholesterol: Lipids have been at goal. Tobacco: Patient reports that she has quit smoking. She has never used smokeless tobacco. Eye exam: Patient is not up-to-date with eye exam. Patient does not have a history of retinopathy. No blurry or double vision Foot exam: Patient does have a history of neuropathy and numbness Kidney health: does not have a history of nephropathy. No burning or pain with urination, no polyuria or polydipsia. Chart reviewed: problem list, current medications, allergies, recent visit notes, and recent patientcommunications. Objective: BP Readings from Last 1 Encounters: 06/21/19 132/85 Microalbumin/Creatinine Ratio (no units) Date Value 08/15/2017 132.9 (H) HGB A1C (%) Date Value 01/19/2018 8.0 (H) Hemoglobin A1C (%) Date Value 11/28/2018 10.6 (H) Glycosolated HGB A1C (POC) (%) Date Value 08/15/2017 7.7 (H) Hemoglobin A1C, POCT (%) Date Value 08/28/2019 11.4 (H) Cholesterol (mg/dL) Date Value 08/15/2017 102 Cholesterol/HDL Ratio Screen (no units) Date Value 08/15/2017 3.0 HDL Cholesterol (mg/dL) Date Value 08/15/2017 34 (L) LDL Direct (mg/dL) Date Value 07/13/2013 123 LDL Calculated (mg/dL) Date Value 08/15/2017 40 Triglycerides (mg/dL) Date Value 08/15/2017 140 Creatinine (mg/dL) Date Value 11/28/2018 0.80 Creatinine Serum (mg/dL) Date Value 01/19/2018 0.70 (L) Diabetes Type 2 is uncontrolled. Assessment/Plan: Timur was seen today for medication check. Diagnoses and all orders for this visit: Type 2 diabetes mellitus with diabetic polyneuropathy, with long-term current use of insulin (HRC) - Optometry Consult-Adult/Peds Bipolar I disorder (HRC) - benztropine (COGENTIN) 0.5 MG tablet; Take 1 Tablet by mouth two times a day for 30 days. Tobacco use disorder (HRC) Drug-induced tremor - benztropine (COGENTIN) 0.5 MG tablet; Take 1 Tablet by mouth two times a day for 30 days. Essential hypertension (HRC) Non-proliferative diabetic retinopathy (HRC) ASHD (arteriosclerotic heart disease) (HRC) Follow up: 3 months and as needed for Office Visit Routine Health Maintenance Due: Routine Health Maintenance was not reviewed today. This phone visit is a scheduled telephone visit. 25 minutes total time spent on the phone with the patient, with 50% in counseling and coordination of care. documented in this encounter Plan of Treatment Scheduled Referrals Name Type Priority Associated Diagnoses Order S chedule Optometry Referral Routine Type 2 diabetes mellitus Ord ered: 08/28/2019 Consult-Adult/Peds with diabetic polyneuropathy, with long-term current use of insulin (HRC) documented as of this encounter Results (ABNORMAL) Microalb/Creat Ratio - in 3 months (12/04/2019 10:10 AM CDT) P athologist Signature Albumin, 351.2 mg/L 12/04/2019 [facility] Urine, Random 3:54 PM CDT LABORATORY Creatinine, 106 >20 mg/dL 12/04/2019 [place] Urine, Random 3:54 PM CDT LABORATORY Albumin/Creati 331 (H) <30 mg/g 12/04/2019 [place] nine Ratio, 3:54 PM CDT LABORATORY Urine, Random Specimen Anatomical Collection Method Collection Time Receive d Time (Source) Location / / Volume Laterality Urine Non-blood 12/04/2019 10:10 12/04/2019 Collection / AM CDT 10:10 AM CDT Unknown Gagandeep Hinojosa MD LAB_1 Performing Organization Address City/[facility]/ZIP Code Phon e Number [facility] [address] [place] [address] (ABNORMAL) Lipid Panel and Direct LDL(If Needed) - in 3 months (12/04/2019 10:06 AM CDT) Patholo gist Method Time Signature Cholesterol 116 0 - 199 12/04/2019 [place] mg/dL 4:03 PM CDT LABORATORY Triglyceride 137 <=149 12/04/2019 [place] mg/dL 4:03 PM CDT LABORATORY HDL Cholesterol 35 (L) >=40 mg/dL 12/04/2019 [place] 4:03 PM CDT LABORATORY LDL, Calculated 54 <130 mg/dL 12/04/2019 [place] 4:03 PM CDT LABORATORY Non HDL Chol, 81 mg/dL 12/04/2019 [place] Calculated 4:03 PM CDT LABORATORY Cholesterol/HDL 3.3 12/04/2019 [place] Ratio 4:03 PM CDT LABORATORY Hours Fasting 12 12/04/2019 [facility] 4:03 PM CDT LABORATORY Specimen Anatomical Collection Method / Collection Time Recei abimael Time (Source) Location / Volume Laterality Blood Venipuncture / 12/04/2019 10:06 0 Unknown AM CDT 10:06 AM CDT Gagandeep Hinojosa MD LAB_1 Performing Organization Address City/State/ZIP Code Phon e Number [facility] [address] [place] [address] [facility] [address] [place] [address], [place] Creatinine / GFR - in 3 months (12/04/2019 10:06 AM CDT) P athologist Signature Creatinine 0.80 0.73 - 12/04/2019 [facility] 1.18 mg/dL 4:03 PM CDT LABORATORY GFR, Estimated >60 >60 12/04/2019 [place] mL/min/1.7 4:03 PM CDT LABORATORY 3m2 Specimen Anatomical Collection Method / Collection Time Recei abimael Time (Source) Location / Volume Laterality Blood Venipuncture / 12/04/2019 10:06 0 Unknown AM CDT 10:06 AM CDT Gagandeep Hinojosa MD LAB_1 Performing Organization Address [facility] Code [facility] e Number [facility] [address] [place] [address] (ABNORMAL) POCT Glycosylated Hemoglobin (HB A1C) - in 3 months (12/04/2019 10:06 AM CDT) Patholo gist Method Time Signature Hemoglobin A1C 11.3 (H) <=5.6 % 12/04/2019 [facility] (Rapid) 10:15 AM CDT LABORATORY Specimen Anatomical Collection Method / Collection Time Recei abimael Time (Source) Location / Volume Laterality Blood Venipuncture / 12/04/2019 10:06 0 Unknown AM CDT 10:06 AM CDT Narrative [facility] - 12/04/2019 10:15 A M CDT This Rapid A1c test is designed for charoltte toring patients with an established diagnosis of diabetes mellitus. This rapid method is not suitable to establish the initial diagnosis of diabetes mellitus. Performe d using Point of Care Instrumentation. Gagandeep Hinojosa MD LAB_1 Performing Organization Address City/[facility]/ZIP Code [facility] e Number [facility] [address] [place] [address] documented in this encounter Visit Diagnoses Diagnosis Type 2 diabetes mellitus with diabetic p olyneuropathy, with long-term current use of insulin (HRC) - Primary Bipolar I disorder (HRC) Bipolar I disorder, most recent episode (or current) unspecified Tobacco use disorder (HRC) Tobacco use disorder Drug-induced tremor Essential and other specified forms of t remor Essential hypertension (HRC) Unspecified essential hypertension Non-proliferative diabetic retinopathy ( HRC) Type II or unspecified type diabetes jasen litus with ophthalmic manifestations, not stated as uncontrolled ASHD (arteriosclerotic heart disease) ([facility]) Coronary atherosclerosis of unspecified type of vessel, [place] or graft Uncontrolled type 2 diabetes mellitus wi th hyperglycemia (HRC) Diabetes mellitus with complication (HRC ) Type II or unspecified type diabetes jasen litus with unspecified complication, not stated as uncontrolled Diabetes mellitus with neurological anastacio festations, uncontrolled Type II or unspecified type diabetes jasen litus with neurological manifestations, uncontrolled Diabetic polyneuropathy associated with type 2 diabetes mellitus (HRC) documented in this encounter Care Teams Director Of Patient Financial Services Relationship Specialty Start Date End Date Gagandeep Hinojosa MD PCP - General 05/17/[address] [place] [address] [place] [address] Vane Zarate Psychiatrist Psychiatry 03/22/12 [facility] Psychotherapist 08/04/17 [facility] Scientist Electronics 09/13/17 documented as of this encounter
--- OUTSIDE RECORDS SUMMARY | 2022-02-12 12:02 | XMS_ITS | Encounter Summary ---
:1970 Author Organization [employer] Address [address] [address] Care Team Providers Name Role Phone Gagandeep Hinojosa MD Primary Care Provider Reason for Visit Reason Comments FOLLOW-UP,DIABETES Encounter Details Date Type Department Care Team Description 08/29/2019 Care Coord Phone Judy Luke R N FOLLOW-UP,DIABETES Medicine [address] [place] [address] [place] [address] [place] [address] [phone] Social History Tobacco Use Types Packs/Day Years Used Date Smoking Tobacco: Former Cigarettes 1 Quit : 08/21/2019 Smokeless Tobacco: Former Qu it: 10/25/2012 Comments: Smoking History Packs/day: Alcohol Use Standard Drinks/Week Comments No 0 (1 standard drink = 0.6 oz pure Alcoho lic Drinks/day: Amount:0; alcohol) Freq:Never; Sex Assigned at Date Recorded Not on file documented as of this encounter Nursing Notes Judy Pittman RN - 09/03/2019 2:01 PM CDT RN Child'S Nurse - Diabetes Follow-Up Current diabetes medication regimen: Metformin 1,000 mg BID Tresiba 32 units daily Relion Regular 6-8 units BID before meals CURRENT GLUCOSE PATTERNS: sometime in July Before breakfast: 119, 178 Before dinner: 145 HS: 135 Hypoglycemia (previous two weeks): none Assessment/education: Outreach to Rustam. He states he received my message and was meaning to call meback. Overall, Rustam states he is doing better, but admits he needs some help with his DM management. When I asked for BG readings, Rustam stated he is testing, but didn't have any readings from the month of August (all the recorded readings were for July). Rustam was able to provide a few readings, butpalma reflected his recent A1c result of 11.4% on 08/28/19. I advised Rustam that I would like to help adjust his insulin and regain control of his BG. However, I noted that I will need BG readings, ideally fasting, before dinner, and 2 hours after dinner or before bed. Rustam agreed. Teach back method used to verify understanding. Shared plan: Resume SMBG tid as directed, record readings. Scheduled phone follow up next week on 09/10/19. Call if sx of hypoglycemia or glucose readings < 70 mg/dL. Rustam verbalized understanding and agreed with plan of care and follow up. Judy Pittman RN - 08/30/2019 3:39 PM CDT Left message requesting a return call. Please transfer to [phone]. documented in this encounter Plan of Treatment Not on filedocumented as of this encounter Visit Diagnoses Not on filedocumented in this encounter Care Teams Aquatics Instructor Relationship Specialty Start Date End Date Gagandeep Hinojosa MD PCP - General 05/17/[address] [place] [address] [place] [address] Vane Zarate Psychiatrist Psychiatry 03/22/12 [facility] Psychotherapist 08/04/17 [facility] Cook Jelly 09/13/17 documented as of this encounter
--- OUTSIDE RECORDS SUMMARY | 2022-02-12 12:02 | XMS_ITS | Encounter Summary ---
:1970 Author Organization [facility] Address [address] [place] [address] Care Team Providers Name Role Phone Gagandeep Hinojosa MD Primary Care Provider Reason for Visit Reason Comments Medication Request Encounter Details Date Type Department Care Team Description 08/31/2019 [facility] Hinojosa, Medication Request 14[address] [facility] [place] [address] 14[address] [facility] [phone] [place], [place] [address] (Wo rk) Social History Tobacco Use Types [...] of this encounter Nursing Notes Marco Antonio Malcolm MA - 09/05/2019 11:12 AM CDT Left message for pt informing him of information below. Gagandeep Hinojosa MD - 09/04/2019 4:41 PM CDT /Please call pt. This supplement is only critical in patients who are receiving kidney dialysis. His not crucial to have at this time Tayla Bernal RN - 09/04/2019 4:09 PM CDT Clinician Action: Input needed regarding Medication Clinician Next Step: Route to [facility] to follow up and Patient IS expecting a call back fromcare team Specific Request(s): 1. Patient requesting alternative to levocarnitine States he was unable to find other pharmacies with supply. Teri Lockett RN - 09/04/2019 3:46 PM CDT Left message for patient to return call if he has found another pharmacy or if he would like an alternative prescribed. [id number] Mendy Nieves RN - 08/31/2019 2:28 PM CDT Return call from patient, patient will contact other pharmacies for Rx Levocarnitine supply and affordable medication. If unavailable, patient will request for alternative medication from PCP. Await return call. Sasha Garcia RN - 08/31/2019 9:43 AM CDT Left message for patient to return call to [phone]. Medication is historical. Does patient want to call other pharmacies for refill due to back order ofmedication at [facility] pharmacy or request alternative medication from PCP? Called pharmacy to find out why not routed to prescribing provider, Dr Woo. Pharmacist states patient told them that he is no longer with Dr. Huff requesting refill to PCP. Pharmacist. Medication has been back ordered for one month and have not received medication supply. Left message on patient;s voice mail to call back. Theresa Mejía - 08/31/2019 9:30 AM CDT MEDICATION CHANGE REQUEST: Pharmacy stating that LEVOCARNITINE is currently on backorder. Please advise pharmacy if there is an appropriate substitute. Thank you. Calvin [place] [phone] documented in this encounter Plan of Treatment Not on filedocumented as of this encounter Visit Diagnoses Not on filedocumented in this encounter Care Teams Fly Tier Relationship Specialty Start Date End Date Gagandeep Hinojosa MD PCP - General 05/17/12 1415 [facility] [place] [address] Vane Zarate Psychiatrist Psychiatry 03/22/12 [facility] Psychotherapist 08/04/17 [facility] Network Operations Center Engineer 09/13/17 documented as of this encounter
--- OUTSIDE RECORDS SUMMARY | 2022-02-12 12:02 | XMS_ITS | Encounter Summary ---
:1970 Author Organization [employer] Address [address], [place] [address] Care Team Providers Name Role Phone Gagandeep Michaud MD Primary Care Provider Reason for Visit Reason Onset Date Comments Refill 08/24/2019 risperiDONE (RISPERD AL) 3 MG tablet Encounter Details Date Type Department Care Team Description 08/24/2019 Refill [facility] Gagandeep Michaud, Refil l (risperiDONE Medicine MD (RISPERDAL) 3 MG tablet) 1415 [facility] . [address] [place] [address] [place], [place] [address] (Wo rk) Social History Tobacco Use Types [...] Nursing Notes Marco Antonio Malcolm MA - 08/24/2019 10:37 AM CDT Pharmacy has been informed to route this request to pt's psychiatrist. Gagandeep Michaud MD - 08/24/2019 9:50 AM CDT Should be filled by Psychiatry Interface, Out QuadROI Prov Query - 08/24/2019 8:35 AM CDT risperiDONE (RISPERDAL) 3 MG tablet Medication started: 06/09/2018 Last ordered by UNKNOWN, PHYSICIAN: 06/09/2018 (441 days ago as Historical on 07/27/2018 by LEN FRIEDMAN.), Si mg two times a day. (changed) -> The requested medication was previously set to Historical. -> The requested sig has changed from the last order. -> Medication cannot be delegated. Last qualifying visit: 06/21/2019 (with GAGANDEEP MICHAUD) Next scheduled visit: 08/28/2019 (in Family Practice) Powered by [employer], Reference: [id number], 08/24/2019 8:35:39 AM CDT, Pool: MANUEL MOORE ([id number]) documented in this encounter Plan of Treatment Not on filedocumented as of this encounter Visit Diagnoses Not on filedocumented in this encounter Care Teams Final Inspector Relationship Specialty Start Date End Date Gagandeep Michaud MD PCP - General 05/17/12 [facility] [place] [address] Vane Zarate Psychiatrsamantha Psychiatry 03/22/12 [facility] Psychotherapist 08/04/17 [facility] District Supervisor 09/13/17 documented as of this encounter
--- OUTSIDE RECORDS SUMMARY | 2022-02-12 12:02 | XMS_ITS | Encounter Summary ---
:1970 Author Organization [employer] Address [address] [place] [address] Care Team Providers Name Role Phone Gagandeep Hinojosa MD Primary Care Provider Encounter Details Date Type Department Care Team Description 08/28/2019 Lab Visit [facility] Uncontrolled type [address] mellitus with hyperglycemia [place] [address] ([facility]) [phone] Social History Tobacco Use Types Packs/Day Years [...] Associated Diagnosis Comme nts ALBUMIN/CREAT RATIO Routine 08/28/2019 2:10 PM Uncontrolled ty pe 2 Results for this CDT diabetes mellitus with proce dure are in hyperglycemia (HRC) the resu lts section. HGB A1C, POINT OF STAT 08/28/2019 2:06 PM Uncontrolled type 2 Results for this CARE CDT diabetes mellitus with proce dure are in hyperglycemia (HRC) the resu lts section. CREATININE / GFR Routine 08/28/2019 2:06 PM Uncontrolled type 2 Results for this CDT diabetes mellitus with proce dure are in hyperglycemia (HRC) the resu lts section. documented in this encounter Results (ABNORMAL) Microalb/Creat Ratio (08/28/2019 2:10 PM CDT) P athologist Signature Albumin, 265.4 mg/L 08/28/2019 [place] Urine, Random 5:06 PM CDT LABORATORY Creatinine, 49 >20 mg/dL 08/28/2019 [place] Urine, Random 5:06 PM CDT LABORATORY Albumin/Creati 542 (H) <30 mg/g 08/28/2019 [place] nine Ratio, 5:06 PM CDT LABORATORY Urine, Random Specimen Anatomical Collection Method Collection Time Receive d Time (Source) Location / / Volume Laterality Urine,random Non-blood 08/28/2019 2:10 PM 0 2:10 Collection / CDT PM CDT Unknown Gagandeep Hinojosa MD LAB_1 Performing Organization Address City/[facility]/ZIP Code Phon e Number [facility] [address] [place], [place] [phone] (ABNORMAL) Creatinine / GFR (08/28/2019 2:06 PM CDT) [facility] [employer] Method Time Signature Creatinine 0.70 (L) 0.73 - 08/28/2019 [place] 1.18 mg/dL 5:02 PM CDT LABORATORY GFR, Estimated >60 >60 08/28/2019 [place] mL/min/1.7 5:02 PM CDT LABORATORY 3m2 GFR, Est If >60 >60 08/28/2019 [place] mL/min/1.7 5:02 PM CDT LABORATORY Libyan 3m2 Specimen Anatomical Collection Method / Collection Time Recei abimael Time (Source) Location / Volume Laterality Blood Venipuncture / 08/28/2019 2:06 08/28/2019 2:06 Unknown PM CDT PM CDT Gagandeep Hinojosa MD LAB_1 Performing Organization Address City/[facility]/ZIP Code Phon e Number [facility] [address] [place] [phone] (ABNORMAL) POCT Glycosylated Hemoglobin (HB A1C) (08/28/2019 2:06 PM CDT) [facility] [employer] Method Time Signature Hemoglobin A1C 11.4 (H) <=5.6 % 08/28/2019 [place] (Rapid) 2:15 PM CDT LABORATORY Specimen Anatomical Collection Method / Collection Time Recei abimael Time (Source) Location / Volume Laterality Blood Venipuncture / 08/28/2019 2:06 08/28/2019 2:06 Unknown PM CDT PM CDT Narrative [facility] - 08/28/2019 2:15 PM CDT This Rapid A1c test is designed for charlotte toring patients with an established diagnosis of diabetes mellitus. This rapid method is not suitable to establish the initial diagnosis of diabetes mellitus. Performe d using Point of Care Instrumentation. Gagandeep Hinojosa MD LAB_1 Performing Organization Address City/State/ZIP Code Phon e Number [facility] [address] [place] [phone] documented in this encounter Visit Diagnoses Diagnosis Uncontrolled type 2 diabetes mellitus wi th hyperglycemia (HRC) documented in this encounter Care Teams King Maker Relationship Specialty Start Date End Date Gagandeep Hinojosa MD PCP - General 05/17/12 [address] [place] [address] Vane Zarate Psychiatrsamantha Psychiatry 03/22/12 [facility] Psychotherapist 08/04/17 [facility] Rebeamer 09/13/17 documented as of this encounter
--- OUTSIDE RECORDS SUMMARY | 2022-02-12 12:02 | XMS_ITS | Encounter Summary ---
:1970 Author Organization [facility] Address [address] [address] Care Team Providers Name Role Phone Gagandeep Hinojosa MD Primary Care Provider Reason for Visit Reason Comments Medication Problems Encounter Details Date Type Department Care Team Description 09/10/2019 Nurse Triage [facility] Gagandeep Hinojosa, Medic ation Problems Medicine 1415 [facility] . 1415 [facility] [place] [address] [place] [address] [phone] (Wo rk) Social History Tobacco Use Types [...] documented as of this encounter Nursing Notes Verito Sanford RN - 09/14/2019 6:50 PM CDT Images from the original note were not included. Pt is calling back, states he received a message from the clinic to call back. Informed him of Dr. Salgado's message below. Pt states he will call back next week to schedule a visit with PCP regarding the cogentin. Problem list, allergies, and current meds reviewed. Gagandeep Hinojosa MD Physician Family Practice Telephone Encounter ?? Signed Creation Time: 09/14/19 0658 Signed Please call pt. Continue Javy. Will address additional medication at next diabetes visit or in clinic with appointment separately at his discretion Brisa Camacho LPN - 09/14/2019 8:25 AM CDT Left message for patient to call back. Frontline/Patient Service Center (PSC), please warm transfer call to extension [facility] or triage to discuss. If no answer at extension, re-route to appropriate poolper call routing grid. Message to Patient/Caller: Gagandeep Hinojosa MD - 09/14/2019 6:58 AM CDT Please call pt. Continue Javy. Will address additional medication at next diabetes visit or in clinic with appointment separately at his discretion Brielle Meza RN - 09/10/2019 4:42 PM CDT Clinician Action: Input needed regarding Medication - Benztropine. Clinician Next Step: Route to [facility] to follow up Specific Request(s): 1. Pt calling about his medication, Benztropine (Cogentin) 0.5 mg, as he has not seen improvements in his tremors, and the medication seems to make him very tired, and he falls asleep during the day. He is also sleeping well at night. States he has been on the medication for about 3 months, with no improvements in his Sx's of fatigue. Asking for options. Problem list reviewed as related to this call. Reason for Disposition ??? Caller has NON-URGENT medication question about med that PCP prescribed and triager unable to answer question Protocols used: MEDICATION QUESTION [id number] documented in this encounter Plan of Treatment Not on filedocumented as of this encounter Visit Diagnoses Not on filedocumented in this encounter Care Teams Shot Polisher And Inspector Relationship Specialty Start Date End Date Gagandeep Hinojosa MD PCP - General 05/17/12 8815 [facility] [place] [address] Vane Zarate Psychiatrist Psychiatry 03/22/12 [facility] Psychotherapist 08/04/17 [facility] Research Technologist 09/13/17 documented as of this encounter
--- OUTSIDE RECORDS SUMMARY | 2022-02-12 12:02 | XMS_ITS | Encounter Summary ---
:1970 Author Organization [employer] Address [address] [place] [address] Care Team Providers Name Role Phone Gagandeep Hinojosa MD Primary Care Provider Reason for Visit Reason Comments LAB RESULTS Encounter Details Date Type Department Care Team Description 07/11/2019 Telephone [facility] Gagandeep Hinojosa MD LAB RESULTS 1415 [facility] . [address] [place] [address] [place] [address] [phone] (Wo rk) Social History Tobacco Use Types Packs/Day Years Used Date Smoking Tobacco: Light Smoker Cigarettes 1 25 Smokeless Tobacco: Former Qu it: 10/25/2012 Comments: Smoking History Packs/day: Alcohol Use Standard Drinks/Week Comments No 0 (1 standard drink = 0.6 oz pure Alcoho lic Drinks/day: Amount:0; alcohol) Freq:Never; Sex Assigned at Date Recorded Not on file documented as of this encounter Nursing Notes Gagandeep Hinojosa MD - 07/12/2019 1:51 PM CDT Already conveyed Marco Antonio Malcolm MA - 07/12/2019 1:49 PM CDT Clinician Action: Input needed regarding ZioPatch results Clinician Next Step: Route to [facility] to follow up Specific Request(s): 1. Results have been routed to providers results inbasket. Please review and advise. Jessica Tirado - 07/11/2019 3:45 PM CDT Test Results (Advise caller/patient can view test results in MyChart, if enrolled) What test are you calling about? Zio patch -pt request a call back today Primary Account Executive Trainee: Gagandeep Hinojosa MD Who ordered the test? (include first & last name) Gagandeep Hinojosa MD When and where was the test done? Mailed in 2 weeks ago Additional comments (related to the above concern): If a prescription is needed, patient would [...] number will end with 1111 or unknown) Please route to: Triage Pool documented in this encounter Plan of Treatment Not on filedocumented as of this encounter Visit Diagnoses Not on filedocumented in this encounter Care Teams Distillery Worker General Relationship Specialty Start Date End Date Gagandeep Hinojosa MD PCP - General 05/17/12 [address] [place] [address] Vane Zarate Psychiatrist Psychiatry 03/22/12 [facility] Psychotherapist 08/04/17 [facility] Door To Door Selling Distributor 09/13/17 documented as of this encounter
--- OUTSIDE RECORDS SUMMARY | 2022-02-12 12:02 | XMS_ITS | Encounter Summary ---
:1970 Author Organization [employer] Address [address] [address] Care Team Providers Name Role Phone Gagandeep Hinojosa MD Primary Care Provider Reason for Visit Reason Comments FOLLOW-UP,DIABETES Encounter Details Date Type Department Care Team Description 11/13/2019 Care Coord Office Judy Luke RN FOLLOW-UP,DIABETES Visit Medicine [facility] . [place] [address] [place] [phone] [address] Social History Tobacco Use Types Packs/Day Years [...] encounter Progress Notes Judy Pittman RN - 11/13/2019 11:00 AM CDT RN Ballistician Visit Pt: Timur Krishnamurthy Referred by: Gagandeep [...] Last attempt to quit: 08/21/2019 Years since quittin.2 ??? Smokeless tobacco: Former User Quit date: [...] One Touch Ultra CURRENT GLUCOSE PATTERNS: since 11/06/19 Fastin - 172, (250 ice cream) Before dinner: 135 - 195 Hypoglycemia (previous two weeks): none ASSESSMENT: Due to the COVID-19 pandemic, this visit was completed by telephone. Medication Rustam is currently using a regimen of metformin, along with Tresiba U200 and Relion Regular insulin.He continues to use a Regular insulin sliding scale at two units per 50 points >200. I congratulated Rustam for only having one BG reading >200 over the past week. He has been working to take his Regular insulin more consistently. I reminded Rustam that if he doesn't test, he won't be able to accurately calculate his insulin dose using his sliding scale to improve his BG readings. I encouraged Rustam to test regularly, so he can act like a pancreas and cover what he is eating with insulin. Blood Glucose Rustam has not been SMBG tid, as directed. Rather, he is testing only bid. I stressed the importance of consistent testing, as it is the only way to know if his BG readings are at goal or if he needs additional insulin. Also, testing is essential for safety while taking insulin, especially before bed. Rustam understands. I reminded Rustam that if he misses a dinner reading, it is a missed opportunity touse his sliding scale, if needed. Diet Rustam continues to try to keep his CHO intake at 45-60 grams of CHO per meal. He has been eating more vegetables; broccoli, cauliflower, and carrots, and avoiding candy and ice cream. I reminded Rustam that when he wants to eat high CHO foods, he can either cover the CHO [...] up Rustam will continue to focus on his unit/CHO ratio and sliding scale calculations to improve his BG readings further. He will try to resume SMBG at least tid and record his readings. We will follow up in 4 weeks, sooner if he experiences hypoglycemia or has questions. Family/social support: Patient attended today's visit by telephone. He currently lives with spouse. Current activity regimen: not discussed today Patient barrier(s) to learning identified: Finance and Emotional. BG Goals: [facility] Goal <7 Pre-meal: 70-130 mg/dL PPG: [...] record readings. Phone follow up scheduled on 12/04/19. Rustam to call if symptoms of hypoglycemia or readings < 70 mg/dL. Rustam verbalized understanding and agreed with plan of care and follow up. documented in this encounter Plan of Treatment Not on filedocumented as of this encounter Visit Diagnoses Not on filedocumented in this encounter Care Teams Tank Tester Relationship Specialty Start Date End Date Gagandeep Hinojosa MD PCP - General 05/17/12 [address] [facility] [place] [address] Vane Zarate Psychiatrist Psychiatry 03/22/12 [facility] Psychotherapist 08/04/17 [facility] Floor Layer Helper 09/13/17 documented as of this encounter
--- OUTSIDE RECORDS SUMMARY | 2022-02-12 12:02 | XMS_ITS | Encounter Summary ---
:1970 Author Organization [employer] Address [address], [place] [address] Care Team Providers Name Role Phone Gagandeep Hinojosa MD Primary Care Provider Reason for Visit Reason Comments Appt. Needed medicare wellness Encounter Details Date Type Department Care Team Description 08/06/2019 [facility] Gagandeep Hinojosa, Appt. Needed (medicare Medicine MD wellness) 1415 [facility] . [address] [place] [address] [place] [address] [phone] (Wo rk) Social History Tobacco Use Types Packs/Day Years Used Date Smoking Tobacco: Light Smoker Cigarettes 1 25 Smokeless Tobacco: Former Qu it: 10/25/2012 Comments: Smoking History Packs/day: Alcohol Use Standard Drinks/Week Comments No 0 (1 standard drink = 0.6 oz pure Alcoho lic Drinks/day: Amount:0; alcohol) Freq:Never; Sex Assigned at Date Recorded Not on file documented as of this encounter Nursing Notes Madina Fox - 08/09/2019 11:24 AM CDT LVM regarding scheduling medicare wellness visit either by video or in person at end of August or beginning of September Jacqueline Vizcaino - 08/06/2019 3:42 PM CDT Please call pt and schedule a Video visit (these can not be done as Phone Visits at this time) for aMedicare annual visit. This does not always fall 12 months after their last physical visit. We notice you are due for a Medicare annual wellness assessment. Due to the COVID pandemic, we are trying to keep patients out of the clinic but we also want to be here to keep all your care / preventive needs up to date via a Video Visit. Would you be interest in scheduling a Video Visit with your primary provider? documented in this encounter Plan of Treatment Not on filedocumented as of this encounter Visit Diagnoses Not on filedocumented in this encounter Care Teams Lithography Contact Worker Relationship Specialty Start Date End Date Gagandeep Hinojosa MD PCP - General 05/17/12 [facility] [place] [address] Vane Zarate Psychiatrist Psychiatry 03/22/12 [facility] Psychotherapist 08/04/17 [facility] Technical Solutions Engineer 09/13/17 documented as of this encounter
--- OUTSIDE RECORDS SUMMARY | 2022-02-12 12:02 | XMS_ITS | Encounter Summary ---
:1970 Author Organization [employer] Address [address], [place] [address] Care Team Providers Name Role Phone Gagandeep Hinojosa MD Primary Care Provider Reason for Visit Reason Comments FOLLOW-UP,DIABETES Encounter Details Date Type Department Care Team Description 09/18/2019 Care Coord Office Judy Luke RN FOLLOW-UP,DIABETES Visit [place] [id number] [address] . [place] [address] [place]QUEZ [phone] Social History Tobacco Use Types Packs/Day Years [...] encounter Progress Notes Judy Pittman RN - 09/18/2019 3:00 PM CDT RN Retail Customer Service Specialist Visit Pt: Timur Krishnamurthy Referred by: Gagandeep [...] (Glucophage)1,000 mg BID Tresiba (insulin degludec U-200) 34 units daily in PM ReliOn R 3 units/CHO choice 6-12 units BID Aspirin: Yes - 81 mg daily Glucose meter: One Touch Ultra CURRENT GLUCOSE PATTERNS: since 09/11/19 Fastin, 203, 145, 154, 172, 132, 133 Before dinner: 203, 211, 151, 201, 154, 143 Bedtime: 185, 165, 148, 161, 132, 149 Hypoglycemia (previous two weeks): none ASSESSMENT: Due to the COVID-19 pandemic, this visit was completed by telephone. Rustam was referred for Care Coordination services by Dr Hinojosa to assist with DM management and insulin titration. Medication Overall, Rustam's BG readings have improved significantly and no longer reflect his recent A1c resultof 11.4%. He reports he is doing a better job testing his BG and taking his insulin consistently. I have encouraged Rustam to try to make taking his insulin before meals part of his routine to improve his glucose control, he agreed. Previously, I recommended increasing his Tresiba dose to 34 units daily, to help lower all his readings throughout the day. Also, Rustam's Tresiba prescription was changed to U200 to help increase his absorption. However, he hasn't started taking it yet because he still has one pen of Tresiba U100 left. Per the Rule of 1800, one unit of insulin lowers Rustam's BG approximately 30 points. Therefore, I proposed that Rustam use a correction factor for any preprandial BG readings >200. He will likely need 2 units, but I suggested Rustam start at one unit for every 50 over 200. He agreed and we practiced the calculations using the readings he provided today, as an example. Blood Glucose Rustam has resumed SMBG, per my request. I thanked him for [...] a day and tries to stay at 45-60 grams of CHO per meal. He knows that eating pasta, snacks, cookies, and an occasional regular soda, all cause his BG readings to increase. So, Rustam is trying to eat more cheese sticks and Kazakh or light yogurt instead. I reminded Rustam [...] Mental Health Case Management and therapy through [facility], but needs a new psychiatrist for medication management. Last week we left a message to schedule with a Jimena French provider, but Rustam states he did not receive a return call. We called again today and scheduled a video visit with Dr Darnell on 10/24/19. Rustam states his , Rosetta, will help him install [employer] on his phone and we can practice using the kaylee prior to the scheduled appt. Follow up Rustam will adjust his insulin [...] Snack Education content covered today: Correction Factor Hyperglycemia BG Monitoring Diet Mental Health Edwin received verbal instructions and written materials tailored to his preferred method of learning. Literacy level assessed (as appropriate). Interventions, including teach back, used to verify understanding. SHARED PLAN: Continue Tresiba 34 units daily. If preprandial BG is >200, add 1 unit for every 50 points over 200. SMBG as directed, record readings. Phone follow up scheduled on 09/24/19. Scheduled appt with Jimena French [employer] on 10/24/19. Rustam to call if symptoms of hypoglycemia or readings < 70 mg/dL. Rustam verbalized understanding and agreed with plan of care and follow up. documented in this encounter Plan of Treatment Not on filedocumented as of this encounter Visit Diagnoses Not on filedocumented in this encounter Care Teams Human Services Supervisor Relationship Specialty Start Date End Date Gagandeep Hinojosa MD PCP - General 05/17/12 [facility]5 [facility] [place] [address] Vane Zarate Psychiatrsamantha Psychiatry 03/22/12 [facility] Psychotherapist 08/04/17 [facility] Biomedical Equipment Tech 09/13/17 documented as of this encounter
--- OUTSIDE RECORDS SUMMARY | 2022-02-12 12:02 | XMS_ITS | Encounter Summary ---
:1970 Author Organization [employer] Address [address], [place] [address] Care Team Providers Name Role Phone Gagandeep Hinojosa MD Primary Care Provider Reason for Visit Reason Comments FOLLOW-UP,DIABETES Encounter Details Date Type Department Care Team Description 10/03/2019 Care Coord Phone Judy Luke R N FOLLOW-UP,DIABETES Medicine [address] [place] [address] . [place] [address] [place] [address] [phone] Social History Tobacco Use Types Packs/Day Years [...] encounter Nursing Notes Judy Pittman RN - 10/03/2019 4:32 PM CDT RN System Analyst - Diabetes Follow-Up Current diabetes medication regimen: Metformin (Glucophage)1,000 mg BID Tresiba (insulin degludec U-200) 34 units daily in PM ReliOn R 3 units/CHO choice 6-12 units BID CURRENT GLUCOSE PATTERNS: since 09/25/19 Before breakfast: 131 - 226, 233 (ice cream and cookies after dinner) Before dinner: 132 - 201, 211, 266 HS: 120 - 154 Hypoglycemia (previous two weeks): none Assessment/education: Rustam is calling back after missing his scheduled appt last week. He states hereceived my messages. Rustam reports some of his readings were better this week, but admits severalwere >200. He forgot to record the foods he ate prior to his higher readings, but did recall eating cookies and ice cream after dinner, which were the likely cause of his high fasting readings. I encouraged Rustam to avoid snacking before bed, if possible, or use non-CHO foods to satisfy hunger. Rustam also forgot to use the Sliding Scale I provided to help correct the higher readings, so I reviewedhow to use it again. To be safe, I advised a conservative start with just one unit for every 50 points >200, and we practiced calculating doses using the BG readings Rustam provided. He thinks he hasa better understanding now. After reviewing Rustam's readings with the sliding scale, we can make further adjustments, as needed. Rustam also reports he has been walking outdoors for 30 minutes each day. I praised Rustam for his effort, noting that exercise is just as important as diet and medication for glucose control. Teach back method used to verify understanding. Shared plan: Continue current insulin and medication regimen, as prescribed. Record foods eaten prior to all BG readings >200. If preprandial BG is >200, add 1 unit for every 50 points over 200. Increase activity, as tolerated. Scheduled phone follow up on 10/10/19. Call if sx of hypoglycemia or glucose readings < 70 mg/dL. Rustam verbalized understanding and agreed with plan of care and follow up. documented in this encounter Plan of Treatment Not on filedocumented as of this encounter Visit Diagnoses Not on filedocumented in this encounter Care Teams Lav Crewman Relationship Specialty Start Date End Date Gagandeep Hinojosa MD PCP - General 05/17/12 [address] [place] [address] [id number] Vane Zarate Psychiatrist Psychiatry 03/22/12 [facility] Psychotherapist 08/04/17 [facility] Automation Analyst 09/13/17 documented as of this encounter
--- OUTSIDE RECORDS SUMMARY | 2022-02-12 12:02 | XMS_ITS | Encounter Summary ---
:1970 Author Organization [employer] Address [address], [place] [address] Care Team Providers Name Role Phone Gagandeep Hinojosa MD Primary Care Provider Reason for Visit Reason Onset Date Comments Refill 08/24/2019 Patient Calling Back 08/24/2019 Encounter Details Date Type Department Care Team Description 08/24/2019 Refill [facility] Gagandeep Hinojosa, Refil l; Patient Calling Medicine MD Back [address] [facility] . [address] [place] [address] [place], [place] [id number] (Wo rk) Social History Tobacco Use Types Packs/Day Years Used Date Smoking Tobacco: Light Smoker Cigarettes 1 25 Smokeless Tobacco: Former Qu it: 10/25/2012 Comments: Smoking History Packs/day: Alcohol Use Standard Drinks/Week Comments No 0 (1 standard drink = 0.6 oz pure Alcoho lic Drinks/day: Amount:0; alcohol) Freq:Never; Sex Assigned at Date Recorded Not on file documented as of this encounter Nursing Notes Derick Mcintyre - 08/24/2019 3:45 PM CDT Patient is calling back about his 2 medication of risperidone and benztropine see message refill from today and needed it cause his mental health doctor retired already and please advise when is ready. Teri Lockett RN - 08/24/2019 12:52 PM CDT Further Assistance Needed on Refill from Clinician RN reviewed. Signed order needed. Medication not on RN refill list Last OV 06/21/19, psychiatrist retired due to covid, requesting primary fill med until new psychiatrist can be found. Anotine Larsen - 08/24/2019 12:41 PM CDT Medications - Refill Request (unable to re-order) How many medications do you need refilled? (This is if patient has been prescribed this medication previously) Patient needs 1 medication refilled. Med #1 Name of Medication risperiDONE (RISPERDAL) Current Dosage of Medication 3 MG tablet Directions for use of medication (how often does the pt take this medication) 3 mg two times a day Name of Prescribing clinician Vane Zarate MD Additional comments (related to the above concern) Pt is out of medication. Pt states that original prescribing provider retired and due to COVID does not have another psychiatrist and wondering if PCPis able fill it. For this refill, patient would like it [...] controlled refills) Please route to: Triage Pool documented in this encounter Plan of Treatment Not on filedocumented as of this encounter Visit Diagnoses Not on filedocumented in this encounter Care Teams Right Of Way Worker Relationship Specialty Start Date End Date Gagandeep Hinojosa MD PCP - General 05/17/12 [address] [place] [address] Vane Zarate Psychiatrist Psychiatry 03/22/12 [facility] Mental [facility] Psychotherapist 08/04/17 [facility] Spot Machine Operator 09/13/17 documented as of this encounter
--- OUTSIDE RECORDS SUMMARY | 2022-02-12 12:02 | XMS_ITS | Encounter Summary ---
:1970 Author Organization [employer] Address [address], [place] [address] Care Team Providers Name Role Phone Gagandeep Hinojosa MD Primary Care Provider Encounter Details Date Type Department Care Team Description 07/23/2019 Orders Only Initial Department Provider, Magda, [facility] YADY JEFFRIES MD [place], [place] [address] Interface provider [phone] [place] [address] Social History Tobacco Use Types Packs/Day Years [...] Name Priority Date/Time Associated Diagnosis Comme nts HOLTER MONITOR 07/23/2019 Results for t his procedure are in the resu lts section. documented in this encounter Results HOLTER MONITOR (07/23/2019) Narrative This result has an attachment that is no t available. Interface Provider DUMMY/OTHER/AR documented in this encounter Visit Diagnoses Not on filedocumented in this encounter Care Teams Shagger Relationship Specialty Start Date End Date Gagandeep Hinojosa MD PCP - General 05/17/12 [address] [place] [address] Vane Zarate Psychiatrist Psychiatry 03/22/12 [facility] Mental Health Psychotherapist 08/04/17 [facility] Broadcast Journalist 09/13/17 documented as of this encounter
--- OUTSIDE RECORDS SUMMARY | 2022-02-12 12:02 | XMS_ITS | Encounter Summary ---
:1970 Author Organization [employer] Address [address], [place] [address] Care Team Providers Name Role Phone Gagandeep Hinojosa MD Primary Care Provider Reason for Visit Reason Comments FOLLOW-UP,DIABETES Encounter Details Date Type Department Care Team Description 12/04/2019 Care Coord Office Judy Luke RN FOLLOW-UP,DIABETES Visit Medicine [address] [place] [address] . [place] [address] [place] [phone] Social History Tobacco Use Types Packs/Day Years [...] encounter Progress Notes Judy Pittman RN - 12/04/2019 10:00 AM CDT FREESTYLE BHARATH CONTINUOUS GLUCOSE SENSOR (CGM) INITIAL SET UP AND INSERTION Instructed patient/family in the use of the Bharath cgm includin. Sensor connection and insertion. 2. Starting a new sensor. 3. Screens and data available on the reader 4. Data and reports available on the website. 5. Trend arrows and their meaning. 6. The difference between blood glucose and interstitial glucose. 7. The need to check glucose at least every 8 hours to avoid the loss of any data. 8. Only responding to high glucose readings with any extra insulin before a meal to avoid stacking insulin. Patient/family connected, inserted, and started a new sensor. Verbalized understanding of above concepts. PLAN: Phone follow up in 2 weeks to review sensor data, glucose patterns. RN Jewel Bearing Polisher Visit Pt: Timur Krishnamurthy Referred by: Gagandeep [...] meter: One Touch Ultra CURRENT GLUCOSE PATTERNS: Rustam did not bring any readings today. Hypoglycemia (previous two weeks): none ASSESSMENT: Rustam is here today for DM follow up with Dr Hinojosa and myself. He is happy to report less neuropathy in his feet lately. Mental Health Rustam reports his marriage/relationship is in a better place. He and his continue to see Dr Vane Huff, once a month, using Telehealth. Medication Rustam is currently using a regimen of metformin, along with Tresiba U200 and Relion Regular insulin.He states he continues to use a Regular insulin sliding scale at two units per 50 points >200. While Rustam would benefit from adding a GLP-1 agonist or SGLT-2 inhibitor, cost is a significant barrier. Rustam is over income for Medical Assistance, [employer], as well as, pharmaceutical assistance. Blood Glucose Rustam's A1c result is 11.3%, which does not match the BG readings he has been providing over the past 3 months. He states he tries to SMBG at least tid, as directed, but sometimes forgets or has trouble getting enough blood from his fingers due to thick calluses, so he will estimate his readings based on what he has eaten. I stressed that estimating BG is not accurate and can be dangerous while we are adjusting medication. Rustam is an excellent candidate for a CGM. I explained the importance of having access to accurate BG readings so he can safely calculate his insulin dosing and sliding scale. I offered to provide Rustam with a sample Freestyle Bharath today to get him started. Hopefully, Medicare will cover the cost through his Part B benefits. Rustam agreed. Diet Rustam continues to try to keep his CHO intake at 45-60 grams of CHO per meal. He is using nutrition labels to count CHO. Rustam is happy to report he has been eating more vegetables; broccoli, cauliflower, and carrots, and trying to avoid candy and ice cream. Hypoglycemia Rustam denies any further hypoglycemia. I reviewed how to use Routine 15 again and Rustam reports he has access to glucose tablets at all times now. Follow up Rustam will continue to focus on his unit/CHO ratio and sliding scale calculations using his new Freestyle Bharath to improve his BG readings further. We will follow up in 2 weeks, sooner if he experiences hypoglycemia or has questions. Family/social support: Patient attended today's visit alone. He currently lives with spouse. Current activity regimen: not discussed today Patient barrier(s) to learning identified: Finance and Emotional. BG Goals: Health Intermediate Lab Goal <7 Pre-meal: 70-130 mg/dL PPG: [...] count CHO choices to calculate unit/CHO dosing. Scan BG before all meals and HS, record readings. Phone follow up scheduled on 12/19/19. Rustam to call if symptoms of hypoglycemia or readings < 70 mg/dL. Rustam verbalized understanding and agreed with plan of care and follow up. documented in this encounter Plan of Treatment Not on filedocumented as of this encounter Visit Diagnoses Diagnosis Uncontrolled type 2 diabetes mellitus wi th hyperglycemia (HRC) - Primary documented in this encounter Care Teams Rag Cutting Machine Operator Relationship Specialty Start Date End Date Gagandeep Hinojosa MD PCP - General 05/17/12 14[address] [facility] [place] [address] Vane Zarate Psychiatrsamantha Psychiatry 03/22/12 [facility] Psychotherapist 08/04/17 [facility] Plant Biology Professor 09/13/17 documented as of this encounter
--- OUTSIDE RECORDS SUMMARY | 2022-02-12 12:02 | XMS_ITS | Encounter Summary ---
:1970 Author Organization [employer] Address [address] [address] Care Team Providers Name Role Phone Gagandeep Hinojosa MD Primary Care Provider Reason for Visit Reason Comments HYPOGLYCEMIA Encounter Details Date Type Department Care Team Description 10/05/2019 Phone Visit Urgent Care [facility] (Primary Dx); [place] Uncontrolled type 2 diabetes mellitus with complication, with long-term current use of insulin ([facility]) [address] [place], [place] [address] Social History Tobacco Use Types Packs/Day Years Used Date Smoking Tobacco: Former Cigarettes 05 19 Quit : 08/21/2019 Smokeless Tobacco: Former Qu it: 10/25/2012 Comments: Smoking History Packs/day: Alcohol Use Standard Drinks/Week Comments No 0 (1 standard drink = 0.6 oz pure Alcoho lic Drinks/day: Amount:0; alcohol) Freq:Never; Sex Assigned at Date Recorded Not on file documented as of this encounter Progress Notes Olga Bryson MD - 10/05/2019 6:40 PM CDT Chief Complaint Patient presents with ??? HYPOGLYCEMIA Today's visit was conducted as a scheduled telephone visit due to Covid-19 pandemic. History of present illness: Patient reports he had a blood sugar of 35 this morning. He had a coupleof snapple drinks which brought it back up to 192. He normally has a snack before bed and didn't have any last night. He admits he normally has high blood sugars, usually a few over 200 a week. His dose of Tresiba was recently increased to 34 units daily, he also has started using his Regular insulin three times a day before meals instead of twice daily. He also notes his was upset that he drank her Snapple drinks and they had an argument about it. The patient's Past Medical History was updated and reviewed in the electronic medical record. OBJECTIVE: General: Patient does not sound in distress. Speaking in full sentences without difficulty. vitals were not taken for this visit. ASSESSMENT: ICD-10-CM 1. Hypoglycemia (HRC) E16.2 glucose 4 gram chewable tablet 2. Uncontrolled type 2 diabetes mellitus with complication, with long-term current use of insulin (HRC) E11.8 insulin degludec (TRESIBA FLEXTOUCH) 200 UNIT/ML SOPN E11.65 insulin regular (NOVOLIN R) 100 UNIT/ML injection Z79.4 PLAN: Recommend a prescription for glucose tabs to use as needed for low blood sugars. He also will reducehis dose of Tresiba back down to 32 units daily. We discussed his marital discord, he does have a counselor. I suggested he consider marital counseling. Billing based on: Complexity 15 minutes spent on the phone with the patient, with greater than 50% in counseling and coordinationof care. documented in this encounter Plan of Treatment Not on filedocumented as of this encounter Visit Diagnoses Diagnosis Hypoglycemia (HRC) - Primary Hypoglycemia, unspecified Uncontrolled type 2 diabetes mellitus wi th complication, with long-term current use of insulin documented in this encounter Care Teams Wheel Alignment Mechanic Relationship Specialty Start Date End Date Gagandeep Hinojosa MD PCP - General 05/17/[address] [place] [address] Vane Zarate Psychiatrist Psychiatry 03/22/12 [facility] Psychotherapist 08/04/17 [facility] Sign Out Clerk 09/13/17 documented as of this encounter
--- OUTSIDE RECORDS SUMMARY | 2022-02-12 12:02 | XMS_ITS | Encounter Summary ---
:1970 Author Organization [employer] Address [address] [place] [address] Care Team Providers Name Role Phone Gagandeep Michaud MD Primary Care Provider Reason for Visit Reason Comments Refill QUEtiapine (SEROQUEL) 200 MG tablet [Pharmacy Med Name: QUEtiapine Fumarate 200 MG Oral Tablet] Encounter Details Date Type Department Care Team Description 10/14/2019 Refill Gagandeep Storm, Rochelle l (QUEtiapine Medicine MD (SEROQUEL) 200 MG tablet [address] [facility] [Pharmacy Med Name: [place] [address] [place] [address] QUEtiapine Fumarate 200 [phone] (Wo rk) MG Oral Tablet]) Social History [...] Notes Interface, Out Surescripts Prov Query - 10/14/2019 4:31 PM CDT QUEtiapine (SEROQUEL) 200 MG tablet [Pharmacy Med Name: QUEtiapine Fumarate 200 MG Oral Tablet] Medication started: 07/09/2016 Last ordered by GAGANDEEP MICAHUD: 08/14/2019 (61 days ago) QTY: 30, Refills: 1, Sig: take 1 tabletby mouth daily at bedtime. (changed but equivalent) -> Medication cannot be delegated. Last qualifying visit: 08/28/2019 (with GAGANDEEP MICHAUD) Next scheduled visit: None [employer], Reference: [id number], 10/14/2019 4:31:34 PM CDT, Pool: MANUEL REFILL ([id number]) documented in this encounter Plan of Treatment Not on filedocumented as of this encounter Visit Diagnoses Not on filedocumented in this encounter Care Teams Metal Casting Trades Worker Relationship Specialty Start Date End Date Gagandeep Michaud MD PCP - General 05/17/[address] [place] [address] [place] [address] Vane Zarate Psychiatrist Psychiatry 03/22/12 [facility] Psychotherapist 08/04/17 [facility] Backwinder 09/13/17 documented as of this encounter
--- OUTSIDE RECORDS SUMMARY | 2022-02-12 12:02 | XMS_ITS | Encounter Summary ---
:1970 Author Organization [employer] Address [address], [place] [address] Care Team Providers Name Role Phone Gagandeep Hinojosa MD Primary Care Provider Reason for Visit Reason Comments FOLLOW-UP,DIABETES Encounter Details Date Type Department Care Team Description 10/08/2019 Care Coord Phone Judy Luke R N FOLLOW-UP,DIABETES Medicine [address] [place] [address] . [place] [address] [place] [address] [phone] Social History Tobacco Use Types Packs/Day Years [...] Nursing Notes Judy Pittman RN - 10/08/2019 2:44 PM CDT RN Composing Room Machinist Apprentice - Diabetes Follow-Up Current diabetes medication regimen: Metformin (Glucophage)1,000 mg BID Tresiba (insulin degludec U-200) 32 units daily in PM ReliOn R 3 units/CHO choice 6-12 units BID CURRENT GLUCOSE PATTERNS: since yesterday Before breakfast: 238 Before dinner: 211 HS: 183 Hypoglycemia (previous two weeks): one Assessment/education: Outreach to Rustam to review his BG readings after reporting an episode of severe hypoglycemia. He reports he is feeling a lot better now and his BG readings are back to normal. When I inquired about a possible cause for the hypoglycemia, Rustam could not recall anything; he denied skipping a meal, taking too much insulin, or being more physically active than usual. Rustam did reduce his Tresiba insulin back to the previous 32 units daily. I clarified Edwin's dosing of his Relion Regular insulin, noting he reported increasing his doses from BID to TID. Rustam states he did not increase to TID, apologizing for the confusion. I stressed theaction time of Regular insulin, stressing that TID dosing would result in insulin stacking and can result in hypoglycemia. Rustam has not been using the new sliding scale. I reviewed how to use the conservative one unit for every 50 points >200 and we practiced calculating doses using the BG readings Rustam provided. Edwin also reports a tremor in his bilateral hands that makes it difficult to test his BG. I suggested keeping the glucometer flat on the edge of a table, bringing the finger with the exposed blood up to the end of the strip, and bracing the finger with his other hand for support. Rustam agreed. I alsoreviewed how to use Routine 15 to prevent rebound hyperglycemia, which resulted from drinking 2 Snapple juices when his BG was low. Rustam previously mentioned some financial strain with his medication costs. Therefore, I obtained 4 sample pens of Tresiba. I informed Rustam that the medication arrived. The samples were entered into [facility] and verified by Dr Foster. The medication is stored in the injection room refrigerator and damaris ilable for pick pulling machine operator at his earliest convenience. Teach back method used to verify understanding. Shared plan: Continue current insulin and medication regimen, as prescribed. Record foods eaten prior to all BG readings >200. If preprandial BG is >200, add 1 unit for every 50 points over 200. supervisory civil engineer Tresiba samples at earliest convenience. Phone follow up on 10/10/19. Call if sx of hypoglycemia or glucose readings < 70 mg/dL. Rustam verbalized understanding and agreed with plan of care and follow up. documented in this encounter Plan of Treatment Not on filedocumented as of this encounter Visit Diagnoses Diagnosis Uncontrolled type 2 diabetes mellitus wi th hyperglycemia (HRC) - Primary documented in this encounter Care Teams Wafer Production Lead Worker Relationship Specialty Start Date End Date Gagandeep Hinojosa MD PCP - General 05/17/12 [facility] [place] [address] Vane Zarate Psychiatrist Psychiatry 03/22/12 [facility] Mental [facility] Psychotherapist 08/04/17 [facility] Napper Grinder 09/13/17 documented as of this encounter
--- OUTSIDE RECORDS SUMMARY | 2022-02-12 12:02 | XMS_ITS | Encounter Summary ---
:1970 Author Organization [employer] Address [address] [place] [address] Care Team Providers Name Role Phone Gagandeep Hinojosa MD Primary Care Provider Reason for Referral Consult/Transfer Care (Routine) - Closed Specialty Diagnoses / Procedures Referred By Contact Refer red To Contact Diagnoses Uncontrolled type 2 diabetes mellitus with hyperglycemia (HRC) Gagandeep Hinojosa MD [address] [place] [address] Referral ID Status Reason Start Date Expiration Date Visits Requ ested Visits Authorized [id number] Closed 12/04/2019 03/04/2021 1 1 Scheduling Instructions Your provider has recommended an appoint ment with [facility]. You may call [phone] to schedule your appoi ntment. Reason for Visit Reason Comments Medicare Annual Wellness Diabetes Growth on penis, x2 months Encounter Details Date Type Department Care Team Description 12/04/2019 Office Visit Gagandeep Storm for Medicare annual wellness exam (Primary Dx); Romario Rubio MD Uncontrolled type 2 diabetes mellitus wi th hyperglycemia (HRC); [address] [facility] Essential hypertension; [place] [address] Marlena Warts, genital; [phone] [place] Tinea versicolo r [id number] Social History Tobacco Use Types Packs/Day Years [...] Sign Reading Time Taken Comments Blood Pressure 99/47 12/04/2019 10:49 AM CDT Pulse 90 12/04/2019 10:49 AM CDT Temperature - - Respiratory Rate - - Oxygen Saturation - - Inhaled Oxygen Concentration - - Weight 92.4 kg (203 lb 9.6 oz) 12/04/2019 10:49 AM CDT Height 177.8 cm (5' 10) 12/04/2019 10:49 AM CDT Body Mass Index 29.21 12/04/2019 10:49 AM CDT documented in this encounter Patient Instructions Patient InstructionsGagandeep Hinojosa MD - 12/04/2019 10:40 AM CDT Annual Wellness Visit Summary Your care team is recommending the following tests, procedures or services. Some of these recommendations may not be fully covered by Medicare or your insurance. If you have questions, check with your insurance to determine coverage before completing these services. Health Maintenance Due Health Maintenance Due Topic Date Due ??? Medicare Annual Wellness Visit 1970 ??? Diabetes: Eye Exam 07/25/2018 ??? HepB (2 of 3 - Risk 3-dose series) 01/15/2019 ??? Diabetes: Foot Exam 07/28/2019 ??? Diabetes: HGBA1C 11/28/2019 If your Medicare Welcome or Annual Wellness Visit is showing you are due in the above list, this will be updated after this visit. You had this completed today and are not due for another year. documented in this encounter Progress Notes Gagandeep Hinojosa MD - 12/04/2019 10:40 AM CDT Medicare Annual Subjective/Historical: Timur Krishnamurthy is a 49 y.o. old male Chief Complaint Patient presents with ??? Medicare Annual Wellness ??? Diabetes ??? Growth on penis, x2 months Current Concerns: Uncontrolled diabetes, genital wart on the ventral surface of the penis on the rough a in the coronal sulcus. Has recurrence of tinea versicolor Mini-Cog Assessment Word Recall: 2 Clock Draw: 2 Total: 4 Additional Assessments Completed: PHQ-2 was administered today with a total score of: 1 Has a Health Care Directive on file? no. Pertinent Positives from Medicare Wellness Form: (If a dash (-) appears in table above, this question was a pertinent positive during a previous Medicare Welcome or Annual Wellness Visit.) The patient's health maintenance, problem list, past medical history, past surgical history, family history, medication list, allergies, and immunization records have been reviewed and updated in the patient record as necessary. Observed Vitals: BP 99/47 (BP Location: Right Arm, BP Cuff Size: Large) Pulse 90 Ht 5' 10 (1.778 m) Wt203 lb 9.6 oz (92.4 kg) BMI 29.21 kg/m?? He has some circular, irregularly-shaped pale patches on his chest and upper abdomen consistent with tinea versicolor. He has a verrucous lesion on the undersurface of the penis in the coronal sulcus right on the raphe approximately 3 x 4 mm in size. This was treated with cryotherapy times for, and he was advised to have this re-treated in 3 weeks. Assessment/Plan Encounter for Medicare annual wellness exam Uncontrolled type 2 diabetes mellitus with hyperglycemia (HRC) - Optometry Consult-Adult/Peds Essential hypertension - amLODIPine (NORVASC) 10 MG tablet; Take 1 Tablet by mouth daily. Warts, genital - DESTRUCT BENIGN SKIN LESIONS UP TO 14 [id number] Repeat treatment in 3 weeks Tinea versicolor - terbinafine (LAMISIL) 250 MG tablet; Take 1 Tablet by mouth daily for 10 days. Other orders - trihexyphenidyl (ARTANE) 2 MG tablet; TAKE 1 TO 2 TABLETS BY MOUTH ONCE DAILY NEEDED FOR EPS DISCONTINUE COGENTIN Counseling and education provided today includes proper nutrition and health habits, fall prevention, and for those items ordered above. Plan for future preventive services in Patient Instructions. Gagandeep Hinojosa MD 12/04/2019, 11:32 AM SUBJECTIVE: 49 y.o. male presents today for diabetes check. His current A1c is out of target. He hasdifficulty testing his blood sugars and is pursuing a continuous glucose monitor. He has received diabetic Education in this unit. Pt is taking multiple daily injections, including Tresiba and Regular insulin. Pt is checking his blood sugar 3-4 times daily. Pt uses a unit/carbohydrate ratio to determine Regular insulin dosing. Pt uses a Sliding Scale of 2 units for every 50 points over 200. Pt has difficulty getting enough blood from his fingers to test due to thick calluses. Aspirin:Continues to take aspirin daily. No stomach pains, no black or tarry stools. Blood pressure:Patient has not been checking blood pressures at home., No chest pain. and No dyspnea. Patient did not bring in outside blood pressure records. Blood sugars: Patient has not been checking blood sugars. Blood sugars have not been at goal. No symptomatic highs or lows. Patient Patient did not bring in outside records.. Cholesterol: Lipids have been at goal. No muscle aches or pains. Tobacco: Patient reports that he has been smoking cigarettes. He has a 6.25 pack-year smoking history. He quit smokeless tobacco use about 7 years ago. Eye exam: Patient is not up-to-date with eye exam. Patient does not have a history of retinopathy. No blurry or double vision Foot exam: Patient does have a history of neuropathy and numbness Kidney health: does not have a history of nephropathy. No burning or pain with urination, no polyuria or polydipsia. Review of systems: See Above Medications: Reviewed and updated Outpatient Medications Prior to Visit Medication Sig Note Dispense Refill ??? ammonium lactate (LAC-HYDRIN) 12 % lotion [...] times a day. 360 Tablet 3 ??? divalproex (DEPAKOTE DR) 250 MG enteric coated tablet Take 1,000 mg by mouth two times a day. ??? glucose 4 gram chewable tablet Chew and swallow 4 Tablets by mouth once as needed (Blood sugar less than 70). 30 Tablet 1 ??? insulin degludec (TRESIBA FLEXTOUCH) 200 UNIT/ML SOPN Inject 32 Units subcutaneously daily. 6 mL5 ??? insulin degludec 200 UNIT/ML SOPN Inject [...] Insulin Syringe-Needle U-100 (INSULIN SYRINGE 31G X 516) 31G X 5/16 1 ML Inject 1 Each subcutaneously 4 times a day. 400 Each 3 ??? levOCARNitine (CARNITOR) 330 MG tablet TK 3 TS PO QD 5 ??? metFORMIN (GLUCOPHAGE) 500 MG tablet TAKE 2 TABLETS BY MOUTH TWICE DAILY WITH MEALS 360 Tablet 0 ??? metoprolol succinate (TOPROL XL) 50 MG 24 hour release tablet Take 1 tablet by mouth once daily 90 Tablet 3 ??? multivitamin (THERAGRAN) tablet Take 1 Tablet by mouth. 01/16/2018: Received from: [facility] Received Sig: Take 1 tablet by mouth [...] risperiDONE (RISPERDAL) 3 MG tablet Take 1 tablet by mouth twice daily 60 Tablet 1 ??? trihexyphenidyl (ARTANE) 2 MG tablet TAKE 1 TO 2 TABLETS BY MOUTH ONCE DAILY NEEDED FOR EPS DISCONTINUE COGENTIN ??? amLODIPine (NORVASC) 10 MG tablet Take 1 Tablet by mouth daily. 90 Tablet 3 ??? benztropine (COGENTIN) 0.5 MG tablet Take 1 Tablet by mouth two times a day for 30 days. 60 Tablet 5 ??? divalproex (DEPAKOTE ER) 500 MG 24 hour release tablet TAKE 1 TABLET BY MOUTH TWICE DAILY FOR 7 DAYS AND THEN 2 TABLETS TWICE DAILY No facility-administered medications prior to visit. Adverse Drug Reactions: Allergies Allergen Reactions ??? Aripiprazole permanent shaking in left arm ??? Gabapentin Suicidal thoughts Other reaction(s): Other - Describe In Comment Field Suicidal ideation ??? Haloperidol Shock ??? Nitroglycerin Nausea And Vomiting ??? Thiothixene Other, see comments Muscle spasm ??? Trifluoperazine Confusion, heart palpitations ??? Wellbutrin [Bupropion] Anxiety ??? Ziprasidone Tardive dyskinsia OBJECTIVE: Vital Signs: BP 99/47 (BP Location: Right Arm, BP Cuff Size: Large) Pulse 90 Ht 5' 10 (1.778 m) Wt 203 lb 9.6 oz (92.4 kg) BMI 29.21 kg/m?? General: Alert, Oriented, NAD Head: Normocephalic. Eyes: PERRLA, full EOM. External exams normal. Nose: Patent, without deformity.Throat: Moist mucous membranes without lesions, erythema, or exudate. Heart: RR without murmurs, rubs, or gallops. Respiratory: Normal respiratory effort. Lungs are clear with good breath sounds. Abdomen: The abdomen was flat, soft and nontender without guarding rebound or masses. Positive bowelsounds. Feet: Normal exam: no sores, no swelling, no edema and Monofilament exam of the feet is within normal limits Labs: Lab Results Component Value Date HGBA1C 10.6 (H) 11/28/2018 UMICROALB 351.2 12/04/2019 CREATININE 0.80 12/04/2019 Lab Results Component Value Date CHOL 116 12/04/2019 HDL 35 (L) 12/04/2019 LDL 54 12/04/2019 TRI 137 12/04/2019 Lab Results Component Value Date ALT 17 04/29/2017 AST 21 04/29/2017 HGB A1C Date Value Ref Range Status 01/19/2018 8.0 (H) 4.0 - 5.6 % Final Hemoglobin A1C Date Value Ref Range Status 11/28/2018 10.6 (H) <=5.6 % Final Glycosolated HGB A1C (POC) Date Value Ref Range Status 08/15/2017 7.7 (H) 4.0 - 5.6 % Final Comment: The Rapid A1c test is designed for monitoring patients with an established diagnosis of diabetes mellitus. The rapid method is not suitable to establish the intial diagnosis of diabetes melitus. Hemoglobin A1C, POCT Date Value Ref Range Status 12/04/2019 11.3 (H) <=5.6 % Final Lab Results Component Value Date Hemoglobin A1C 10.6 (H) 11/28/2018 Hemoglobin A1C, POCT 11.3 (H) 12/04/2019 No components found for: GLUF Lab Results Component Value Date K 5.0 11/28/2018 CHLORIDE 100 01/16/2018 BICARB 26 01/16/2018 ASSESSMENT: 1. Type 2 diabetes, uncontrolled 2. Hypertension, controlled 3. Hyperlipidemia, controlled ICD-10-CM 1. Encounter for Medicare annual wellness exam Z00.00 2. Uncontrolled type 2 diabetes mellitus with hyperglycemia (HRC) E11.65 Optometry Consult-Adult/Peds POCT Glycosylated Hemoglobin (HB A1C) Microalb/Creat Ratio Lipid Panel and Direct LDL(If Needed) 3. Essential hypertension I10 amLODIPine (NORVASC) 10 MG tablet Electrolyte Panel Creatinine / GFR 4. Warts, genital A63.0 DESTRUCT BENIGN SKIN LESIONS UP TO 14 [address] 5. Tinea versicolor B36.0 terbinafine (LAMISIL) 250 MG tablet PLAN: 1. Would like to have him come back in a month when his blood sugars can be monitored on his CGM Follow-up in 3 weeks for repeat treatment of genital warts The patient was discharged ambulatory and in stable condition. Diabetes measures: A1c Due: 3 months Foot Exam: 3 months Eye exam: Pending Cholesterol: 3 months Electrolytes: 3 months UMAR: 3 months Aspirin: yes Tobacco: yes documented in this encounter Plan of Treatment Scheduled Referrals Name Type Priority Associated Diagnoses Order S chedule Optometry Referral Routine Uncontrolled type 2 Ordered: 12/04/2019 Consult-Adult/Peds diabetes mellitus with hyperglycemia (HRC) documented as of this encounter Visit Diagnoses Diagnosis Encounter for Medicare annual wellness e xam - Primary Uncontrolled type 2 diabetes mellitus wi th hyperglycemia (HRC) Essential hypertension (HRC) Unspecified essential hypertension Warts, genital Condyloma acuminatum Tinea versicolor Pityriasis versicolor documented in this encounter Care Teams Spa Director/Finance Relationship Specialty Start Date End Date Gagandeep Hinojosa MD PCP - General 05/17/[address] [place] [address] Vane Zarate Psychiatrist Psychiatry 03/22/12 [facility] Health Psychotherapist 08/04/17 [facility] Tractor Technician 09/13/17 documented as of this encounter
--- OUTSIDE RECORDS SUMMARY | 2022-02-12 12:03 | XMS_ITS | Encounter Summary ---
:1970 Author Organization [employer] Address [address] [place] [address] Care Team Providers Name Role Phone Gagandeep Hinojosa MD Primary Care Provider Reason for Visit Reason Comments MANTOUX/PPD READ Encounter Details Date Type Department Care Team Description 06/14/2019 Nursing Visit [facility] Encounter for PPD skin Medicine test reading (Primary [address] [facility] . Dx) [place] [address] Social History Tobacco Use Types Packs/Day Years Used Date Smoking Tobacco: Former Cigarettes 1 25 Smokeless Tobacco: Former Qu it: 10/25/2012 Comments: Smoking History Packs/day: Alcohol Use Standard Drinks/Week Comments No 0 (1 standard drink = 0.6 oz pure Alcoho lic Drinks/day: Amount:0; alcohol) Freq:Never; Sex Assigned at Date Recorded Not on file documented as of this encounter Plan of Treatment Not on filedocumented as of this encounter Visit Diagnoses Diagnosis Encounter for PPD skin test reading - Pr imary documented in this encounter Care Teams Director Of Community Services Relationship Specialty Start Date End Date Gagandeep Hinojosa MD PCP - General 05/17/12 [address] [facility] [place] [address] Vane Zarate Psychiatrist Psychiatry 03/22/12 [facility] Psychotherapist 08/04/17 [facility] Textile Pin Worker 09/13/17 documented as of this encounter
--- OUTSIDE RECORDS SUMMARY | 2022-02-12 12:03 | XMS_ITS | Encounter Summary ---
:1970 Author Organization [employer] Address [address] [place] [address] Care Team Providers Name Role Phone Gagandeep Hinojosa MD Primary Care Provider Reason for Visit Reason Comments Parkinson's Disease Pt has appointment tomorrow for f/u diabetes, would like Dr. to discuss possible diagnosis o f Parkinson's, (declined to speak to nurse, ) has appointment amarilis orrow. Encounter Details Date Type Department Care Team Description 05/30/2019 Nurse Triage Gagandeep Storm n's Disease Medicine MD Joanne (Pt has appointment [address] [facility] tomorrow for f/u [place] [address] [address] diabetes, would like [phone] [place] [phone] , to discuss [phone] possible diagno sis of (Work) Parkinson's, (declined to speak to nurse, ) has appointment tomorrow. ) Social History Tobacco Use Types Packs/Day Years Used Date Smoking Tobacco: Former Cigarettes 1 25 Smokeless Tobacco: Former Qu it: 10/25/2012 Comments: Smoking History Packs/day: Alcohol Use Standard Drinks/Week Comments No 0 (1 standard drink = 0.6 oz pure Alcoho lic Drinks/day: Amount:0; alcohol) Freq:Never; Sex Assigned at Date Recorded Not on file documented as of this encounter Nursing Notes Sasha Garcia RN - 05/30/2019 3:40 PM CST Spoke to patient. States tremor which has been ongoing for over a year but notes left hand tremor isworsening. Dexterity in opening for example a bag of chips has decreased. States was at a job interview recently and his tremors where noted by nurse who was interviewing him. Numbness in tingling of finger tips related to neuropathy but not a new Sx nor worsening. Denies dizziness, headache, chest pain, confusion nor one sided numbness/weakness. Advised per protocol to keep appointment. Hx of atherosclerosis and diabetes. Problem list reviewed as related to this call. Future Appointments Date Time Provider Department Center 05/31/2019 11:00 AM Gagandeep Hinojosa MD [facility] Reason for Disposition ??? MILD weakness (i.e., does not interfere with ability to work, go to school, normal activities) and persists > 1 week Protocols used: WEAKNESS (GENERALIZED) AND [id number] RANCE SALES MANAGER Analy Elias - 05/30/2019 3:32 PM CST Red Flag Symptoms Describe your symptoms (if pain, include location): Pt has appointment tomorrow for f/u diabetes, would like , to discuss possible diagnosis of Parkinson's, (declined to speak to nurse, ) has appointment tomorrow Caller declined to follow Red Flag Guidelines. Additional comments (related to the above concern): Pt declined to speak to nurse, outside of red flag protocol to get to ER nurse. For emergent symptoms: Please route and transfer to: Triage Pool (high priority) For urgent and routine symptoms: DO NOT enter a pool number. Please sign/close phone encounter RANCE SALES MANAGER documented in this encounter Plan of Treatment Not on filedocumented as of this encounter Visit Diagnoses Not on filedocumented in this encounter Care Teams Animal Caretaker Supervisor Relationship Specialty Start Date End Date Gagandeep Hinojosa MD PCP - General 05/17/12 [address] [facility] [place] [id number] Vane Zarate Psychiatrsamantha Psychiatry 03/22/12 [facility] Psychotherapist 08/04/17 [facility] Lecturer In Marketing 09/13/17 documented as of this encounter
--- OUTSIDE RECORDS SUMMARY | 2022-02-12 12:03 | XMS_ITS | Encounter Summary ---
:1970 Author Organization [employer] Address [address] [place] [address] Care Team Providers Name Role Phone Gagandeep Hinojosa MD Primary Care Provider Reason for Visit Reason Comments Diabetes Rash chest X 2 months Encounter Details Date Type Department Care Team Description 12/18/2018 Office Visit Gagandeep Stormea ve rsicolor (Primary Dx); Romario Rubio MD Essential hypertension; [address] 14[address] [facility] Uncontro lled type 2 diabetes mellitus without complication, without long-term current use of insulin (HRC); [address] 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, uncontrolled (HRC); [place]ig[place] [address] [place] VIGIL Tobacco use disorder; [phone] [address] Uncontrolled type 2 diabetes mellitus wi th hyperglycemia (HRC); [phone] penitentiary curre nt use of insulin (HRC); (Work) Type 2 diabetes mellitus without complic ation, with long-term current use of insulin (HRC); [phone] Essential hyper tension; (Fax) Hyperlipidemia, unspecified hyperlipidemia type Social History Tobacco Use Types Packs/Day Years [...] Sign Reading Time Taken Comments Blood Pressure 127/88 12/18/2018 11:39 AM CDT Pulse 88 12/18/2018 11:39 AM CDT Temperature - - Respiratory Rate - - Oxygen Saturation - - Inhaled Oxygen Concentration - - Weight 92.1 kg (203 lb 1.6 oz) 12/18/2018 11:39 AM CDT Height - - Body Mass Index 29.14 07/27/2018 1:49 PM CDT documented in this encounter Progress Notes Gagandeep Hinojosa MD - 12/18/2018 11:20 AM CDT SUBJECTIVE: 48 y.o. male presents today for diabetes check. Admits that he is resume smoking. Recenthospitalization for bipolar depression. Aspirin:Continues to take aspirin daily. No stomach pains, no black or tarry stools. Blood pressure:Patient has not been checking blood pressures at home., No chest pain. and No dyspnea. Patient did not bring in outside blood pressure records. Blood sugars: Patient has been checking blood sugars. Blood sugars have not been at goal. No symptomatic highs or lows. Patient Patient did not bring in outside records.. Cholesterol: Lipids have been at goal. No muscle aches or pains. Tobacco: Patient reports that he has quit smoking. His smoking use included cigarettes. He has a 25.00 pack-year smoking history. He quit smokeless tobacco use about 6 years ago. Eye exam: Patient is not [...] Visit Medication Sig Note Dispense Refill ??? ALPRAZolam (XANAX) 1 MG tablet 5 ??? ammonium lactate (LAC-HYDRIN) 12 % lotion Apply topically daily. 500 mL 11 ??? aspirin 81 MG chewable tablet TAKE 1 TABLET BY MOUTH DAILY . 100 tablet 1 ??? atorvastatin (LIPITOR) 80 MG tablet Take 1 Tablet by mouth daily. 90 Tablet 3 ??? blood glucose (ONE TOUCH ULTRA BLUE) test strip Use to test two times a day. Pharmacy dispense brand based on insurance. ICD-10: E11.29, E11.65, R80.9, Z79.4 200 Strip 3 ??? busPIRone (BUSPAR) 10 MG tablet Take 20 mg by mouth two times a day. 01/16/2018: Received from: External Pharmacy Received Sig: TAKE 1 TABLET BY MOUTH TWICE A DAY 2 ??? divalproex (DEPAKOTE DR) 250 MG enteric coated tablet Take 1,000 mg by mouth two times a day. ??? insulin degludec (TRESIBA FLEXTOUCH) 200 UNIT/ML SOPN Inject 32 Units subcutaneously daily. 6 mL5 ? ? insulin regular (NOVOLIN R) 100 UNIT/ML injection Inject 2 units per 15 grams of carb before bk & din, at least 6 hours apart.Add Sliding Scale +1 unit/50 >150.max is 30 units daily. 10 mL 11 ??? Insulin Syringe-Needle U-100 (INSULIN SYRINGE 31G X 5/16) 31G X 5/16 1 ML Inject 1 Each subcutaneously 4 times a day. 400 Each 3 ??? lithium carbonate 300 MG capsule Take 300 mg by mouth daily. 01/16/2018: Received from: External Pharmacy Received Sig: TAKE ONE CAPSULE BY MOUTH EVERY DAY 0 ??? Geronimo Carbonate 600 MG capsule Take 600 mg by mouth daily at bedtime. 01/16/2018: Received from: External Pharmacy Received Sig: TAKE ONE CAPSULE BY MOUTH AT BEDTIME 0 ??? metoprolol succinate (TOPROL XL) 50 MG 24 hour release tablet Take 1 Tablet by mouth daily. 90 Tablet 1 ??? multivitamin (THERAGRAN) tablet Take 1 Tablet by mouth. 01/16/2018: [facility] Re[facility] Sig: Take 1 tablet by mouth once daily. ??? ONE TOUCH ULTRA 2 meter Use to test 4 times a day. 1 Each 0 ??? ONETOUCH DELICA lancets Use to test 4 times a day. 400 Each 3 ??? ONETOUCH ULTRA CONTROL solution Use to test as needed. 1 Each 11 ??? QUEtiapine (SEROQUEL) 200 MG tablet Take 200 mg by mouth daily at bedtime. 01/16/2018: Received from: External Pharmacy Received Sig: TAKE ONE TABLET BY MOUTH AT BEDTIME 0 ??? risperiDONE (RISPERDAL) 3 MG tablet 3 mg two times a day. ??? Vitamin D, Ergocalciferol, 45392 units CAPS Take 50,000 Units by mouth. ??? amLODIPine (NORVASC) 10 MG tablet TAKE 1 TABLET BY MOUTH ONCE DAILY FOR 90 DAYS 90 Tablet 0 ??? insulin pen needle (BD ULTRAFINE JANET) 32G X 4 MM Inject subcutaneously as needed for Blood Sugar >. 100 Each 11 ??? metFORMIN (GLUCOPHAGE) 500 MG tablet TAKE 2 TABLETS BY MOUTH TWICE DAILY WITH MEALS 360 Tablet 0 No facility-administered medications prior to visit. Adverse [...] Ziprasidone Tardive dyskinsia OBJECTIVE: Vital Signs: BP 127/88 (BP Location: Left Arm, BP Cuff Size: Large) Pulse 88 Wt 203 lb 1.6 oz (92.1 kg) BMI 29.14 kg/m?? General: Alert, Oriented, NAD Head: Normocephalic. [...] no edema and Monofilament exam of the foot is abnormal: Heis numb on the plantar surface of both feet, dorsum is a both feet. Labs: Lab Results Component Value Date HGBA1C 10.6 (H) 11/28/2018 UMICROALB 150.2 08/15/2017 CREATININE 0.80 11/28/2018 Lab Results Component Value Date CHOL 102 08/15/2017 CHOL 3.0 08/15/2017 HDL 34 (L) 08/15/2017 LDL 40 08/15/2017 TRI 140 08/15/2017 Lab Results Component Value Date ALT 17 [...] A1C, POCT Date Value Ref Range Status 07/27/2018 10.9 (H) <=5.6 % Final Lab Results Component Value Date Hemoglobin A1C 10.6 (H) 11/28/2018 Hemoglobin A1C, POCT 10.9 (H) 07/27/2018 No components found for: GLUF Lab Results Component Value Date K 5.0 11/28/2018 CHLORIDE 100 01/16/2018 BICARB 26 01/16/2018 ASSESSMENT: 1. Type 2 diabetes, uncontrolled 2. Hypertension, controlled 3. Hyperlipidemia, controlled ICD-10-CM 1. Tinea versicolor B36.0 terbinafine (LAMISIL) 250 MG tablet 2. Essential hypertension I10 amLODIPine (NORVASC) 10 MG tablet 3. Uncontrolled type 2 diabetes mellitus without complication, without long-term current use of insulin (C) E11.65 insulin pen needle (BD ULTRAFINE JANET) 32G X 4 MM metFORMIN (GLUCOPHAGE) 500 MG tablet 4. Type 2 diabetes mellitus with neurological manifestations, uncontrolled ([facility]) E11.49 E11.65 5. Tobacco use disorder ([facility]) F17.200 PLAN: 1. Continue to work on smoking cessation. Continue to work on diabetes management and behavior modification The patient was discharged ambulatory and in stable condition. 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, uncontrolled Tobacco use disorder (HRC) Tobacco use disorder Uncontrolled type 2 diabetes mellitus wi th hyperglycemia (HRC) middle or intermediate school principal current use of insulin (HRC) Encounter for long-term (current) use of insulin Type 2 diabetes mellitus without complic ation, with long-term current use of insulin (HRC) Hyperlipidemia, unspecified hyperlipidem ia type documented in this encounter Care Teams Tailor Men'S Ready To Wear Relationship Specialty Start Date End Date Gagandeep Hinojosa MD PCP - General 05/17/12 1415 [facility] [place], [place] [address] Vane Zarate Psychiatrist Psychiatry 03/22/12 [facility] Health Psychotherapist 08/04/17 [facility] Cherry Dipper 09/13/17 documented as of this encounter
--- OUTSIDE RECORDS SUMMARY | 2022-02-12 12:03 | XMS_ITS | Encounter Summary ---
:1970 Author [facility] Address [address] [place] [address] Care Team Providers Name Role Phone Gagandeep Hinojosa MD Primary Care Provider Reason for Visit Reason Comments Disease Registry Encounter Details Date Type Department Care Team Description 02/28/2019 [facility]ep Hinojosa MD Disease Registry 14[address] [facility] . 14[address] [facility] [place] [address] [place] [address] [phone] (Wo rk) Social History Tobacco Use Types Packs/Day Years Used Date Smoking Tobacco: Former Cigarettes 1 25 Smokeless Tobacco: Former Qu it: 10/25/2012 Comments: Smoking History Packs/day: Alcohol Use Standard Drinks/Week Comments No 0 (1 standard drink = 0.6 oz pure Alcoho lic Drinks/day: Amount:0; alcohol) Freq:Never; Sex Assigned at Date Recorded Not on file documented as of this encounter Nursing Notes Harleen Hampton - 03/13/2019 11:18 AM CST LVM FOR PT TO CALL BACK TO SCHEDULE [phone] VETERINARIAN Isaías Blair LPN - 02/28/2019 2:23 PM CST Patient is overdue for Diabetes Mellitus labs please call and make a lab only appointment F VETERINARIAN documented in this encounter Plan of Treatment Not on filedocumented as of this encounter Visit Diagnoses Not on filedocumented in this encounter Care Teams Two Needle Machine Operator Relationship Specialty Start Date End Date Gagandeep Hinojosa MD PCP - General 05/17/12 1415 [facility] [place] [address] Vane Zarate Psychiatrist Psychiatry 03/22/12 [facility] Mental Health Psychotherapist 08/04/17 [facility] Beck Operator 09/13/17 documented as of this encounter
--- OUTSIDE RECORDS SUMMARY | 2022-02-12 12:03 | XMS_ITS | Encounter Summary ---
:1970 Author Organization [employer] Address [address] [place] [address] Care Team Providers Name Role Phone Gagandeep Hinojosa MD Primary Care Provider Reason for Visit Reason Comments QUESTIONS, GENERAL Encounter Details Date Type Department Care Team Description 12/17/2018 Telephone [facility] Gagandeep Hinojosa, QUESTIONS, GENERAL [address] [facility] [address] [place] [address] [place], [place] [address] (Wo rk) Social History Tobacco Use Types Packs/Day Years Used Date Smoking Tobacco: Former Cigarettes 1 25 Smokeless Tobacco: Former Qu it: 10/25/2012 Comments: Smoking History Packs/day: Alcohol Use Standard Drinks/Week Comments No 0 (1 standard drink = 0.6 oz pure Alcoho lic Drinks/day: Amount:0; alcohol) Freq:Never; Sex Assigned at Date Recorded Not on file documented as of this encounter Nursing Notes Laureen Lucas, RN - 12/17/2018 7:48 PM CDT Spoke with patient calling to clarify when his appt is tomorrow. Confirmed 11:20 am at [facility] documented in this encounter Plan of Treatment Not on filedocumented as of this encounter Visit Diagnoses Not on filedocumented in this encounter Care Teams Pelts Skinner Relationship Specialty Start Date End Date Gagandeep Hinojosa MD PCP - General 05/17/12 [facility] [facility] [place] [address] Vane Zarate Psychiatrist Psychiatry 03/22/12 [facility] Mental Health Psychotherapist 08/04/17 [facility] Geospatial Imagery Intelligence Analyst 09/13/17 documented as of this encounter
--- OUTSIDE RECORDS SUMMARY | 2022-02-12 12:03 | XMS_ITS | Encounter Summary ---
:1970 Author Organization [employer] Address [address] [place] [address] Care Team Providers Name Role Phone Gagandeep Hinojosa MD Primary Care Provider Reason for Visit Reason Comments Post Hospital Discharge Follow Up Encounter Details Date Type Department Care Team Description 12/22/2018 [facility] Gagandeep Hinojosa, Post Hospital Discharge Medicine MD Follow Up 1415 [facility] . [address] [place] [address] [place] [address] [phone] (Wo rk) Social History Tobacco Use Types [...] encounter Nursing Notes Brielle Meza RN - 12/22/2018 1:16 PM CDT Post hospitalization discharge follow up call completed. See doc flowsheet: [facility] for details. Danelle Garcia RN - 12/22/2018 11:51 AM CDT Left message to call back to nurse line #[phone] Aniyah Guillen - 12/22/2018 11:48 AM CDT Pt returning call. Told him about message below and informed him he will be getting a call back Danelle Garcia RN - 12/22/2018 11:36 AM CDT Called patient for post discharge follow up, no answer. Unable to leave voicemail for patient, will attempt to call patient again. Admitted to [facility] 12/20 for intentional acute drug overdose. No new meds. Stopped buspirone, quetiapine, and risperidone. Has f/u appt 12/26. documented in this encounter Plan of Treatment Not on filedocumented as of this encounter Visit Diagnoses Not on filedocumented in this encounter Care Teams Director Communications Relationship Specialty Start Date End Date Gagandeep Hinojosa MD PCP - General 05/17/12 1415 [facility] [place] [address] Vane Zarate Psychiatrist Psychiatry 03/22/12 [facility] Mental Health Psychotherapist 08/04/17 [facility] Satellite Dish Installer 09/13/17 documented as of this encounter
--- OUTSIDE RECORDS SUMMARY | 2022-02-12 12:03 | XMS_ITS | Encounter Summary ---
:1970 Author Organization [employer] Address [address] [place] [address] Care Team Providers Name Role Phone Gagandeep Hinojosa MD Primary Care Provider Reason for Visit Reason Comments DM/VASC/HTN Registry Call 1 Encounter Details Date Type Department Care Team Description 04/19/2019 Telephone [facility] Gagandeep Hinojosa, DM/VA SC/HTN Registry Medicine MD Call 1 1415 [facility] . 1415 [place] [address] [place], [place] [address] (Wo rk) Social History Tobacco Use Types Packs/Day Years Used Date Smoking Tobacco: Former Cigarettes 1 25 Smokeless Tobacco: Former Qu it: 10/25/2012 Comments: Smoking History Packs/day: Alcohol Use Standard Drinks/Week Comments No 0 (1 standard drink = 0.6 oz pure Alcoho lic Drinks/day: Amount:0; alcohol) Freq:Never; Sex Assigned at Date Recorded Not on file documented as of this encounter Nursing Notes Joelle Carrasquillo MA - 04/19/2019 3:42 PM CST Called and left detailed msg below, giving patient [phone] to call and schedule labs. Joelle Carrasquillo MA 3:43 PM 04/19/2019 RVISOR PAYROLL Abel Novak MA - 04/19/2019 2:37 PM CST Pt is overdue for diabetes labs, please call and make pt a lab only appt.Pt does not need to be fasting unless they are do for Chol and would like too. RVISOR PAYROLL documented in this encounter Plan of Treatment Not on filedocumented as of this encounter Visit Diagnoses Not on filedocumented in this encounter Care Teams Meat Loiner Relationship Specialty Start Date End Date Gagandeep Hinojosa MD PCP - General 05/17/[address] [place] [address] [place] Gerber [address] Vane Zarate Psychiatrist Psychiatry 03/22/12 [facility] Mental Health Psychotherapist 08/04/17 [facility] Solar Energy Installation Manager 09/13/17 documented as of this encounter
--- OUTSIDE RECORDS SUMMARY | 2022-02-12 12:03 | XMS_ITS | Encounter Summary ---
:1970 Author Organization [employer] Address [address] [place] [address] Care Team Providers Name Role Phone Gagandeep Michaud MD Primary Care Provider Reason for Visit Reason Comments Refill metFORMIN (GLUCOPHAGE) 500 M G tablet [Pharmacy Med Name: metFORMIN HCl 500 MG Oral Tablet] Encounter Details Date Type Department Care Team Description 05/21/2019 Refill [facility] Gagandeep Michaud, Refil l (metFORMIN Medicine MD (GLUCOPHAGE) [address] tablet [[place] [address] [place] [address] Name: metFORMIN HCl 500 [phone] (Wo rk) MG Oral Tablet]) Social History [...] documented as of this encounter Nursing Notes Ajay Lauren, RN - 05/22/2019 9:49 AM CST Renewed medication per medication refill protocol. Requested Prescriptions Pending Prescriptions Disp Refills metFORMIN (GLUCOPHAGE) 500 MG tablet [Pharmacy Med Name: metFORMIN HCl 500 MG Oral Tablet] 360 Tablet 0 Sig: TAKE 2 TABLETS BY MOUTH TWICE DAILY WITH MEALS TRIC MOTOR ASSEMBLER AND TESTER Interface, Out Fast Drinks Prov Query - 05/21/2019 5:31 AM CST metFORMIN (GLUCOPHAGE) 500 MG tablet [Pharmacy Med Name: metFORMIN HCl 500 MG Oral Tablet] Medication started: 01/16/2014 Last ordered by GAGANDEEP MICHAUD F: 12/18/2018 (154 days ago) QTY: 360, Refills: 0, Sig: take 2 tablets by mouth two times a day with meals. (changed but equivalent) -> Rapid A1C is abnormal (10.6 % is greater than 8.0 %) -> Refill x 3 months (courtesy refill, overdue for a(n) Rapid A1C check) Last qualifying visit: 05/02/2019 (with GAGANDEEP MICHAUD) Next scheduled visit: None GFR (CrCl) estimated: >60 ml/min on 11/28/2018 Rapid A1C : 10.6 % on 11/28/2018 PATIENT IS DUE FOR: - HBA1C (PN ONLY) (Sent to [facility]) Powered by [employer], Reference: [id number], 05/21/2019 5:31:48 AM ELKIN, Jaxon: MANUEL REFILL ([id number]) TRIC MOTOR ASSEMBLER AND TESTER documented in this encounter Plan of Treatment Not on filedocumented as of this encounter Visit Diagnoses Diagnosis Uncontrolled type 2 diabetes mellitus wi thout complication, without long-term current use of insulin documented in this encounter Care Teams Honey Processor Relationship Specialty Start Date End Date Gagandeep Michaud MD PCP - General 05/17/12 [facility] [place] [address] Vane Zarate Psychiatrsamantha Psychiatry 03/22/12 [facility] Mental [facility] Psychotherapist 08/04/17 [facility] Curator Of Photography And Prints 09/13/17 documented as of this encounter
--- OUTSIDE RECORDS SUMMARY | 2022-02-12 12:03 | XMS_ITS | Encounter Summary ---
:1970 Author Organization [employer] Address [address] [address] Care Team Providers Name Role Phone Gagandeep Hinojosa MD Primary Care Provider Reason for Visit Reason Onset Date Comments EXAM,NOS 02/07/2019 Encounter Details Date Type Department Care Team Description 02/07/2019 Office Visit Tim Peterson MD [address] [place] [address] Health examination of Medicine Nurse, [facility] defined subpopulation [address] [facility] (Primary Dx) [place] [address] Social History Tobacco Use Types Packs/Day Years Used Date Smoking Tobacco: Former Cigarettes 1 25 Smokeless Tobacco: Former Qu it: 10/25/2012 Comments: Smoking History Packs/day: Alcohol Use Standard Drinks/Week Comments No 0 (1 standard drink = 0.6 oz pure Alcoho lic Drinks/day: Amount:0; alcohol) Freq:Never; Sex Assigned at Date Recorded Not on file documented as of this encounter Progress Notes Fifi Lewis CMA - 02/07/2019 9:30 AM CDT Client visit completed today. Please refer to Systoc letter, scanned documents, and documentation. Fifi Lewis CMA 02/07/2019, 9:45 AM documented in this encounter Plan of Treatment Not on filedocumented as of this encounter Visit Diagnoses Diagnosis Health examination of defined subpopulat ion - Primary documented in this encounter Care Teams Reflesher Relationship Specialty Start Date End Date Gagandeep Hinojosa MD PCP - General 05/17/12 [facility] [place] [address] Vane Zarate Psychiatrsamantha Psychiatry 03/22/12 [facility] Mental Health Psychotherapist 08/04/17 [facility] Patient Case Manager 09/13/17 documented as of this encounter
--- OUTSIDE RECORDS SUMMARY | 2022-02-12 12:03 | XMS_ITS | Encounter Summary ---
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 [facility] current use of ins ulin (HRC); [place] [address] Type 2 diabetes mellitus with diabetic p olyneuropathy, with long-term current use of insulin (HR) [phone] [place] [id number] Social History Tobacco Use Types Packs/Day Years [...] Sign Reading Time Taken Comments Blood Pressure 99/59 05/02/2019 11:31 AM INTERIOR DESIGNER Pulse 70 05/02/2019 11:31 AM INTERIOR DESIGNER Temperature 38.2 ??C (100.8 ??F) 05/02/2019 11:31 AM INTERIOR DESIGNER Respiratory Rate - - Oxygen Saturation - - Inhaled Oxygen Concentration - - Weight 92.4 kg (203 lb 12.8 oz) 05/02/2019 11:31 AM INTERIOR DESIGNER Height - - Body Mass Index 29.24 07/27/2018 1:49 PM CDT documented in this encounter Progress Notes Gagandeep Hinojosa MD - 05/02/2019 11:00 AM CST SUBJECTIVE: 49 y.o. 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 He is due for testing but cannot do so today. Patient arrived very late for his appointment, but was still seen. Aspirin:Continues to take aspirin daily. No stomach pains, no black or tarry stools. Blood pressure:Patient has not been checking blood pressures at home. Patient did not bring in outside blood pressure records. Blood sugars: Patient has been checking blood sugars. Blood sugars have not been at goal. No symptomatic highs or lows. Patient Patient did not bring in outside records.. Cholesterol: Lipids have not been at goal. No muscle aches or pains. Tobacco: Patient reports that he has quit smoking. His smoking use included cigarettes. He has a 25.00 pack-year smoking history. He quit smokeless tobacco use about 6 years ago. Eye exam: Patient is not up-to-date with eye exam. Patient does have a history of retinopathy. No blurry [...] ALPRAZolam (XANAX) 1 MG tablet 5 ??? amLODIPine (NORVASC) 10 MG tablet Take [...] Units subcutaneously daily. 6 mL5 ??? insulin pen needle (BD ULTRAFINE JANET) 32G X 4 MM Inject subcutaneously as needed for Blood Sugar >. 100 Each 11 ? ? insulin regular (NOVOLIN R) 100 [...] TK 3 TS PO QD 5 ??? lithium carbonate 300 MG capsule Take 300 mg by mouth daily. 01/16/2018: Received from: External Pharmacy Received Sig: TAKE ONE CAPSULE BY MOUTH EVERY DAY 0 ??? Sebree Carbonate 600 MG capsule Take 600 mg by mouth daily at bedtime. 01/16/2018: Received from: External Pharmacy Received Sig: TAKE ONE CAPSULE BY MOUTH AT BEDTIME 0 ??? metFORMIN (GLUCOPHAGE) 500 MG tablet Take 2 Tablets by mouth two times a day with meals. 360 Tablet 0 ??? metoprolol succinate (TOPROL XL) 50 MG 24 hour release tablet Take 1 Tablet by mouth daily. 90 Tablet 1 ??? multivitamin (THERAGRAN) tablet Take 1 Tablet by mouth. 01/16/2018: Received from: [facility] Received Sig: Take 1 tablet by mouth [...] times a day. ??? Vitamin D, Ergocalciferol, 21357 units CAPS Take 50,000 Units by mouth. No facility-administered medications prior to visit. Adverse [...] Ziprasidone Tardive dyskinsia OBJECTIVE: Vital Signs: BP 99/59 (BP Location: Right Arm, BP Cuff Size: Large) Pulse 70 Temp (!) 100.8 ??F (38.2 ??C) (Oral) Wt 203 lb 12.8 oz (92.4 kg) BMI 29.24 kg/m?? General: Alert, Oriented, NAD Head: Normocephalic. Eyes: PERRLA, full EOM. External exams normal. Heart: RRR Respiratory: Normal respiratory effort. Abdomen: The abdomen was flat, soft and nontender without guarding rebound or masses. Positive bowelsounds. Labs: Lab Results Component Value Date HGBA1C [...] Hypertension, controlled 3. Hyperlipidemia, controlled ICD-10-CM 1. Type 2 diabetes mellitus with neurological manifestations, uncontrolled ([facility]) E11.49 E11.65 2. Uncontrolled type 2 diabetes mellitus with hyperglycemia ([facility]) E11.65 Microalb/Creat Ratio POCT Glycosylated Hemoglobin (HB A1C) Lipid Panel and Direct LDL(If Needed) Creatinine / GFR 3. portfolio architect current use of insulin ([facility]) Z79.4 4. Type 2 diabetes mellitus with diabetic polyneuropathy, with long-term current use of insulin ([facility]) E11.42 Z79.4 PLAN: 1. He will return for a more formal exam when he is feeling better. His DMV form was completed. The patient was discharged ambulatory and in stable condition. Diabetes measures: A1c Due: 1 months Foot Exam: 1 month Eye exam: Patient will schedule Cholesterol: 1 month Electrolytes: 1 month UMAR: 1 month Aspirin: yes Tobacco: no RIOR DESIGNER documented in this encounter Plan of Treatment Not on filedocumented as of this encounter Results (ABNORMAL) Microalb/Creat Ratio (08/28/2019 2:10 PM CDT) athologist Signature Albumin, 265.4 mg/L 08/28/2019 [facility] Urine, Random 5:06 PM CDT LABORATORY Creatinine, 49 >20 mg/dL 08/28/2019 [facility] Urine, Random 5:06 PM CDT LABORATORY Albumin/Creati 542 (H) <30 mg/g 08/28/2019 [facility] nine Ratio, 5:06 PM CDT LABORATORY Urine, Random Specimen Anatomical Collection Method Collection Time Receive d Time (Source) Location / / Volume Laterality Urine,random Non-blood 08/28/2019 2:10 PM 0 2:10 Collection / CDT PM CDT Unknown Gagandeep Hinojosa MD LAB_1 Performing Organization Address City/State/[place]UST Code Phon e Number [facility] [address] [place] [address] (ABNORMAL) Creatinine / GFR (08/28/2019 2:06 PM CDT) [facility] Time Signature Creatinine 0.70 (L) 0.73 - 08/28/2019 [facility] 1.18 mg/dL 5:02 PM CDT LABORATORY GFR, Estimated >60 >60 08/28/2019 [facility] mL/min/1.7 5:02 PM CDT LABORATORY 3m2 GFR, Est If >60 >60 08/28/2019 [facility] mL/min/1.7 5:02 PM CDT LABORATORY Latvian 3m2 Specimen Anatomical Collection Method / Collection Time Recei abimael Time (Source) Location / Volume Laterality Blood Venipuncture / 08/28/2019 2:06 08/28/2019 2:06 Unknown PM CDT PM CDT Gagandeep Hinojosa MD LAB_1 Performing Organization Address City/[facility]/[place] Code Phon e Number [facility] [id number] [place] [address] (ABNORMAL) POCT Glycosylated Hemoglobin (HB A1C) (08/28/2019 2:06 PM CDT) [facility] [employer] Method Time Signature Hemoglobin A1C 11.4 (H) <=5.6 % 08/28/2019 [place] (Rapid) 2:15 PM CDT LABORATORY Specimen Anatomical Collection Method / Collection Time Recei abimael Time (Source) Location / Volume Laterality Blood Venipuncture / 08/28/2019 2:06 08/28/2019 2:06 Unknown PM CDT PM CDT Narrative [facility] - 08/28/2019 2:15 PM CDT This Rapid A1c test is designed for charlotte toring patients with an established diagnosis of diabetes mellitus. This rapid method is not suitable to establish the initial diagnosis of diabetes mellitus. Performe d using Point of Care Instrumentation. Gagandeep Hinojosa MD LAB_1 Performing Organization Address City/State/ZIP Code Phon e Number [facility] [address] [place] [id number] documented in this encounter Visit Diagnoses Diagnosis 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, uncontrolled - Primary Uncontrolled type 2 diabetes mellitus wi th hyperglycemia (HRC) [facility] current use of insulin (HRC) Encounter for long-term (current) use of insulin Type 2 diabetes mellitus with diabetic p olyneuropathy, with long-term current use of insulin (HRC) documented in this encounter Care Teams Balance Sheet Analyst Relationship Specialty Start Date End Date Gagandeep Hinojosa MD PCP - General 05/17/12 [address] [place] [address] Vane Zarate Psychiatrsamantha Psychiatry 03/22/12 [facility] Psychotherapist 08/04/17 [facility] Director Selection And Administration 09/13/17 documented as of this encounter
--- OUTSIDE RECORDS SUMMARY | 2022-02-12 12:03 | XMS_ITS | Encounter Summary ---
:1970 Author Organization [employer] Address [address], [place] [address] Care Team Providers Name Role Phone Gagandeep Hinojosa MD Primary Care Provider Reason for Visit Reason Comments Patient Care Coordination Encounter Details Date Type Department Care Team Description 06/11/2019 Care Coord [facility] Deborah Rodrigues Patien t Care Phone Medicine [facility] Coordination [address] [place] [address] [place] [address] [phone] Social History Tobacco Use Types Packs/Day Years Used Date Smoking Tobacco: Former Cigarettes 1 25 Smokeless Tobacco: Former Qu it: 10/25/2012 Comments: Smoking History Packs/day: Alcohol Use Standard Drinks/Week Comments No 0 (1 standard drink = 0.6 oz pure Alcoho lic Drinks/day: Amount:0; alcohol) Freq:Never; Sex Assigned at Date Recorded Not on file documented as of this encounter Progress Notes Deborah Rodrigues LICSW - 06/11/2019 1:25 PM CST Software Requirements Engineer - Phone Call Contact with: Rustam Reason for call: Care Coordination Discussion/actions: Rustam was in the clinic for a PCP appointment and requested to check-in. Talked with him briefly and he stated, things are going really well. Rustam said that he has been unemployed, but is hoping to start back to work at some place new. Rustam said he is taking all of his medication as prescribed and has his diabetes and mental health under control. He denied any care coordination needs at this time, but agreed to call if he needs anything. Shared plan: -Care Coordination follow-up as needed. Pt verbalized understanding and agreed with plan of care and follow up. ITY CONTROLLER documented in this encounter Plan of Treatment Not on filedocumented as of this encounter Visit Diagnoses Diagnosis Health usp, active care coordinati on - Primary documented in this encounter Care Teams Structures Engineer Relationship Specialty Start Date End Date Gagandeep Hinojosa MD PCP - General 05/17/[address] [place] [address] [place] [address] Vane Zarate Psychiatrist Psychiatry 03/22/12 [facility] Psychotherapist 08/04/17 [facility] Linseed Oil Refiner 09/13/17 documented as of this encounter
--- OUTSIDE RECORDS SUMMARY | 2022-02-12 12:03 | XMS_ITS | Encounter Summary ---
:1970 Author Organization [employer] Address [address], [place] [address] Care Team Providers Name Role Phone Gagandeep Hinojosa MD Primary Care Provider Reason for Referral (Routine) - Closed Specialty Diagnoses / Procedures Referred By Contact Refer red To Contact Diagnoses Chest pain, unspecified type Zara Fox MD Procedures Outreach Nuclear Study [email or web address] [place], [place] [address] Referral ID Status Reason Start Date Expiration Date Visits Requ ested Visits Authorized [id number] Closed 06/19/2019 09/17/2020 1 1 NILE JUSTICE OFFICER Encounter Details Date Type Department Care Team Description 06/18/2019 Hospital Encounter Heart & Vascular Chest pain, unspecified Center Nuclear type (Primary Dx) Cardiology [address] [facility] [place] [address] Social History Tobacco Use Types [...] MG daily. tabletIndications: ASHD (arteriosclerotic heart disease) (HRC), Hyperlipidemia with target LDL less than 70 (HRC) blood glucose (ONE Use to test two times 200 Strip 3 201704/01/2020 TOUCH ULTRA BLUE) test a day. Pharmacy stripIndications: dispense brand based Uncontrolled type 2 on insurance. ICD-10: diabetes mellitus with E11.29, E11.65, R80.9, microalbuminuria, with Z79.4 long-term current use of insulin busPIRone (BUSPAR) 10 Take 20 mg by mouth 2 12/1208/14/2019 MG tablet two times a day. insulin degludec Inject 32 Units 6 mL 5 08/01/2018 (TRESIBA FLEXTOUCH) subcutaneously daily. 200 UNIT/ML SOPNIndications: Uncontrolled type 2 diabetes mellitus with complication, with long-term current use of insulin insulin pen needle (BD Inject subcutaneously 100 [...] by mouth 0 12/2408/28/2019 MG capsule daily. Orr Carbonate 600 Take 600 mg by mouth 0 12/2406/21/2019 MG capsule daily at bedtime. metFORMIN (GLUCOPHAGE) TAKE 2 TABLETS BY 360 [...] day. 0 06/09/2018 (RISPERDAL) 3 MG tablet Vitamin D, Take 50,000 Units by 0 11/01/2018 0210/2019 Ergocalciferol, 28295 mouth. units CAPS documented as of this encounter Procedure Notes Zayra Jamison - 06/18/2019 12:00 PM CSTAssociated Order(s): OUTREACH NUCLEAR STUDY Results NM CARDIAC MPI STRESS TEST ( (Order [id number]) STRESS TEST PHARMACOLOGICAL ( (Order [id number]) Original Order Diagnosis: Chest pain [R07.9 (ICD-10-CM)] Chest pain, acute, nonspecific Chest pain, acute, nonspecific Reading Provider(s) Cliff Weinstein DO PACs images are not viewable in [employer] Link. See text report below. STRESS TEST PHARMACOLOGICALOrder: [id number] Status: Final result Visible to patient: No (Not Released) Next appt: None Dx: Chest pain Linked study orders: NM CARDIAC MPI STRESS TEST (Order: [id number]) Details Reading Physician Reading Date Result Priority Cliff Weinstein DO 06/18/2019 Routine Narrative & Impression NUCLEAR PERFUSION STRESS TEST, 06/18/2019 REASON FOR STUDY: Chest pain. This is a pharmacologic stress test with gated SPECT imaging. CLINICAL QUESTIONS: Evaluation of coronary artery disease. CLINICAL HISTORY: This is a 49-year-old man with known coronary artery disease. Cardiac risk factorsinclude tobacco, hyperlipidemia, hypertension, and diabetes. Previous cardiac procedures include percutaneous transluminal coronary angioplasty. Current symptomatology includes chest pain. PHARMACOLOGIC PROCEDURE: Pharmacologic stress testing was performed using a Lexiscan walk protocol with a dose of 0.4 mg. The heart rate was 91 beats per minute at baseline and shruti to 125 beats per minute during the Lexiscan walk protocol. The patient did not develop significant symptoms during the infusion. The baseline electrocardiogram demonstrates normal sinus rhythm. With the Lexiscan walk protocol, there is no significant ST shift. Isolated PVCs are seen. The stress electrocardiogram is negative for ischemia. Myocardial perfusion imaging was performed at rest following the injection of 8.6 mCi of technetium-99m sestamibi. At peak pharmacologic effect, the patient was injected with 31.6 mCi of technetium-99m sestamibi. FINDINGS: The overall quality of the study is fair. The left ventricular cavity is noted to be normal in size. SPECT images demonstrate homogeneous tracer distribution throughout the myocardium. There are no perfusion defects. Gated SPECT imaging demonstrates mildly reduced left ventricular systolic function which appears global. The calculated left ventricular ejection fraction is 45%. IMPRESSION: Myocardial perfusion imaging is normal. There is no evidence for inducible ischemia. Theoverall left ventricular systolic function is abnormal without regional wall motion abnormalities. The left ventricular ejection fraction is calculated at 45%. When compared to the prior study from 08/20/2018, these findings are similar; however, the ejection fraction was noted on the prior study to be33%, currently 45%. The perfusion imaging, however, is normal on both studies. Cliff Weinstein DO CP/obed Last Resulted: 06/18/19 4:40 PM Hard Copy Result Report Patient Release Status: This result is not viewable by the patient. Patient Information Patient Name Timur Krishnamurthy ([id number]) Sex Male NILE JUSTICE OFFICER documented in this encounter Plan of Treatment Not on filedocumented as of this encounter Procedures Procedure Name Priority Date/Time Associated Diagnosis Comme nts OUTREACH NUCLEAR Routine 06/18/2019 12:00 PM Chest pain, Resu lts for this STUDY JUVENILE JUSTICE OFFICER unspecified type procedure a re in the results section. documented in this encounter Results Outreach Nuclear Study (06/18/2019 12:00 PM JUVENILE JUSTICE OFFICER) Narrative POCT - 06/18/2019 12:00 PM JUVENILE JUSTICE OFFICER Zayra Jamison ? 06/20/2019 11:21 AM Results NM CARDIAC MPI STRESS TEST ( [id number]) (Order [id number]) STRESS TEST PHARMACOLOGICAL (Accession A [id number]) (Order [id number]) Original Order Diagnosis: Chest pain [R07.9 (ICD-10-CM)] ??Chest p ain, acute, nonspecific Chest pain, acute, nonspecific Reading Provider(s) Cliff Weinstein DO PACs images are not viewable in [employer] Link. See text report below. STRESS TEST PHARMACOLOGICALOrder: [id number] Status: Final result ?? Visible to patie nt: No (Not Released) Next appt: None Dx: Chest pain Linked study orders: NM CARDIAC MPI STRE SS TEST (Order: [id number]) Details Reading Physician Reading Date Result Pr Cliff Buchanan DO 06/18/2019 Routine Narrative & Impression NUCLEAR PERFUSION STRESS TEST, 06/18/2019 REASON FOR STUDY: ??Chest pain. This is a pharmacologic stress test with gated SPECT imaging. CLINICAL QUESTIONS: ??Evaluation of denzel nary artery disease. CLINICAL HISTORY: ??This is a 49-year-ol d man with known coronary artery disease. ??Cardiac risk factors i nclude tobacco, hyperlipidemia, hypertension, and diabet es. ??Previous cardiac procedures include percutaneous translum inal coronary angioplasty. ??Current symptomatology in cludes chest pain. PHARMACOLOGIC PROCEDURE: ??Pharmacologic stress testing was performed using a Lexiscan walk protocol with a dose of 0.4 mg. ?? The heart rate was 91 beats per minute a t baseline and shruti to 125 beats per minute during the Lexiscan walk protocol. ??The patient did not develop significant symp toms during the infusion. The baseline electrocardiogram demonstr ates normal sinus rhythm. With the Lexiscan walk protocol, there is no significant ST shift. ??Isolated PVCs are seen. ??The s tress electrocardiogram is negative for ischemia. ??Myocardial perf usion imaging was performed at rest following the injectio n of 8.6 mCi of technetium-99m sestamibi. ??At peak phar macologic effect, the patient was injected with 31.6 mCi of te chnetium-99m sestamibi. FINDINGS: ??The overall quality of the s tudy is fair. ??The left ventricular cavity is noted to be normal in size. ??SPECT images demonstrate homogeneous tracer distribut ion throughout the myocardium. ??There are no perfusion def ects. ??Gated SPECT imaging demonstrates mildly reduced left ventric ular systolic function which appears global. ??The calculated l eft ventricular ejection fraction is 45%. IMPRESSION: ??Myocardial perfusion imagi ng is normal. ??There is no evidence for inducible ischemia. ??The o verall left ventricular systolic function is abnormal without re gional wall motion abnormalities. ??The left ventricular ej ection fraction is calculated at 45%. ??When compared to e prior study from 08/20/2018, these findings are similar; h owever, the ejection fraction was noted on the prior study to be 33%, currently 45%. ?? The perfusion imaging, however, is tyrone l on both studies. Cliff Weinstein DO CP/obed Last Resulted: 06/18/19 ??4:40 PM ? Hard Copy Result Report Patient Release Status: This result is not viewable by the keke humphrey. Patient Information Patient Name Timur Krishnamurthy ([id number]) Sex Male Procedure Note Zayra Jamiosn M - 06/18/2019 12:[address] Results NM CARDIAC MPI STRESS TEST ( [id number]) (Order [id number]) STRESS TEST PHARMACOLOGICAL (Accession A [id number]) (Order [id number]) Original Order Diagnosis: Chest pain [R07.9 (ICD-10-CM)] Chest sesar n, acute, nonspecific Chest pain, acute, nonspecific Reading Provider(s) Cliff Weinstein DO PACs images are not viewable in [employer] Link. See text report below. STRESS TEST PHARMACOLOGICALOrder: [id number] Status: Final result Visible to patient: No (Not Released) Next appt: None Dx: Chest pain Linked study orders: NM CARDIAC MPI STRE SS TEST (Order: [id number]) Details Reading Physician Reading Date Result Pr Cliff Buchanan DO 06/18/2019 Routine Narrative & Impression NUCLEAR PERFUSION STRESS TEST, 06/18/2019 REASON FOR STUDY: Chest pain. This is a pharmacologic stress test with gated SPECT imaging. CLINICAL QUESTIONS: Evaluation of pruitt ry artery disease. CLINICAL HISTORY: This is a 49-year-old man with known coronary artery disease. Cardiac risk factors include tobacco, hyperlipidemia, hypertension, and diabetes. Previous cardiac procedures include percutaneous transluminal coronary angio plasty. Current symptomatology includes chest pain. PHARMACOLOGIC PROCEDURE: Pharmacologic s tress testing was performed using a Lexiscan walk protocol with a dose of 0.4 mg. The heart rate was 91 beats per minute at baseline and shruti to 125 beats per minute during the Lexiscan walk protocol. The patient did not develop significant symptoms during the infusion. The baseline electrocardiogram demonstrates normal sinus rhythm. With the Lexiscan walk protocol, there is no significant ST shift. Isolated PVCs are seen. The stres s electrocardiogram is negative for ischemia. Myocardial perfusion imaging was performed at rest following the injection of 8.6 mCi of technetium-99m sestamibi. At peak pharmacologic effect, the patient was in jected with 31.6 mCi of technetium-99m sestamibi. FINDINGS: The overall quality of the chanda dy is fair. The left ventricular cavity is noted to be normal in size. SPECT images demonstrate homogeneous tracer distribution throughout the myocardium. There are no perfusion defects. Gated SPECT imaging d emonstrates mildly reduced left ventricular systolic function which appears global. The calculated left ventricular ejection fraction is 45%. IMPRESSION: Myocardial perfusion imaging is normal. There is no evidence for inducible ischemia. The overall left ventricular systolic function is abnormal without regional wall motion abnormalities. The left ventricular ejection fraction is calculated at 45%. When compared to the prior study from 08/20/2018, these findings are similar; however, the ejection fraction was noted on the prior study to be 33%, currently 45%. The perfusion imaging, however, is normal on both stud ies. Cliff Weinstein DO CP/obed Last Resulted: 06/18/19 4:40 PM Hard Copy Result Report Patient Release Status: This result is not viewable by the keke humphrey. Patient Information Patient Name Timur Krishnamurthy ([id number]) Sex Male Zara Fox MD PN CARDIAC SERVICES ORDERABL ES Performing Organization Address City/State/ZIP Code Phon e Number POCT documented in this encounter Visit Diagnoses Diagnosis Chest pain, unspecified type - Primary documented in this encounter Care Teams Security Checker Relationship Specialty Start Date End Date Gagandeep Hinojosa MD PCP - General 05/17/[address] [place] [address] Vane Zarate Psychiatrsamantha Psychiatry 03/22/12 [facility] Psychotherapist 08/04/17 [facility] Non Destructive Testing Scientist 09/13/17 documented as of this encounter
--- OUTSIDE RECORDS SUMMARY | 2022-02-12 12:03 | XMS_ITS | Encounter Summary ---
:1970 Author Organization [facility] Address [address] [address] Care Team Providers Name Role Phone Gagandeep Hinjoosa MD Primary Care Provider Reason for Visit Reason Comments Post Hospital Discharge Follow Up Encounter Details Date Type Department Care Team Description 06/19/2019 Telephone [facility] Gagandeep Hinojosa, Post Hospital Discharge Medicine MD Follow Up [address] [facility] . [address] [place] [address] [place] [address] [phone] (Wo rk) Social History Tobacco Use Types Packs/Day Years Used Date Smoking Tobacco: Former Cigarettes 1 25 Smokeless Tobacco: Former Qu it: 10/25/2012 Comments: Smoking History Packs/day: Alcohol Use Standard Drinks/Week Comments No 0 (1 standard drink = 0.6 oz pure Alcoho lic Drinks/day: Amount:0; alcohol) Freq:Never; Sex Assigned at Date Recorded Not on file documented as of this encounter Nursing Notes Lisa Ruvalcaba RN - 06/19/2019 12:05 PM CST Post hospitalization discharge follow up call completed. See doc flowsheet: HOSMD for details. T MANAGER documented in this encounter Plan of Treatment Not on filedocumented as of this encounter Visit Diagnoses Not on filedocumented in this encounter Care Teams Teacher Adult Education Relationship Specialty Start Date End Date Gagandeep Hinojosa MD PCP - General 05/17/12 [address] [facility] [place] [address] Vane Zarate Psychiatrist Psychiatry 03/22/12 [facility] Mental [facility] Psychotherapist 08/04/17 [facility] Project Manager 09/13/17 documented as of this encounter
--- OUTSIDE RECORDS SUMMARY | 2022-02-12 12:03 | XMS_ITS | Encounter Summary ---
:1970 Author Organization [employer] Address [address] [place] [address] Care Team Providers Name Role Phone Gagandeep Hinojosa MD Primary Care Provider Reason for Visit Reason Comments Hospital Discharge Follow-up 06-17-19 [facility] admi t for Chest pain Encounter Details Date Type Department Care Team Description 06/21/2019 Office Visit Gagandeep Storm Atypical chest pain (Primary Dx); Romario Rubio MD H/O atrial flutter; [address] [facility] Uncontrolled type 2 diabetes mellitus without complication, without long-term current use of insulin (HRC); [place] [address] [address] Tobacco use disorder; [phone] [place] V[place] [phone] Drug-induced tremor Social History Tobacco Use Types Packs/Day Years [...] Sign Reading Time Taken Comments Blood Pressure 132/85 06/21/2019 10:26 AM DERMATOLOGY NURSE PRACTITIONER Pulse 92 06/21/2019 10:26 AM DERMATOLOGY NURSE PRACTITIONER Temperature - - Respiratory Rate - - Oxygen Saturation - - Inhaled Oxygen Concentration - - Weight 90.7 kg (200 lb) 06/21/2019 10:26 AM DERMATOLOGY NURSE PRACTITIONER Height 177.2 cm (5' 9.75) 06/21/2019 10:26 AM DERMATOLOGY NURSE PRACTITIONER Body Mass Index 28.9 06/21/2019 10:26 AM DERMATOLOGY NURSE PRACTITIONER documented in this encounter Progress Notes Gagandeep Hinojosa MD - 06/21/2019 10:20 AM CST ICD-10-CM 1. Atypical chest pain R07.89 2. H/O atrial flutter Z86.79 3. Uncontrolled type 2 diabetes mellitus without complication, without long-term current use of insulin ([facility]) E11.65 4. Tobacco use disorder ([facility]) F17.200 5. Drug-induced tremor G25.1 CHIEF COMPLAINT: Chief Complaint Patient presents with ??? Hospital Discharge Follow-up 06-17-19 [facility] hospital admit for Chest pain SUBJECTIVE : Timur Krishnamurthy is an 49 y.o. male who presents for post hospitalization check. Patient presented to the emergency room with chest pain, was admitted for rule out, and underwent stress testing which was negative. He had no troponin bump, reportedly had a transient event of atrial flutter which must of been documented on monitoring, because is EKGs did not show any abnormality. He was discharged with a ZIO patch. Recently had Cogentin added to his psych meds primarily to help control tremor. Usesminimal caffeine, continues to smoke, and his A1c in hospital was found to be elevated at 12.6. He remains challenged attempting to take his insulin on a timely basis and to check his blood sugars. He has been symptom free of any chest pain since discharge. PROBLEM LIST: Patient Active Problem List Diagnosis Date Noted ??? Non-proliferative diabetic retinopathy ([facility]) 05/02/2019 ??? Hyponatremia 01/16/2018 ??? Tinea versicolor 07/18/2015 ??? Tobacco use disorder ([facility]) 10/26/2012 ??? Anemia 05/02/2012 Overview Note: Anemia, unspecified ??? Microalbuminuria 02/04/2012 ??? ME, old ([facility]) 09/16/2011 ??? History of PTCA 09/16/2011 Overview Note: History of PTCA 04/2011 BMS RCA ??? Obesity, Class I, BMI 30-34.9 ([facility]) 09/16/2011 Overview Note: Body mass index is 31.16 kg/(m^2). ??? Hyperlipidemia with target LDL less than 70 ([facility]) 06/08/2011 Overview Note: Hyperlipidemia LDL goal < 70 ??? ASHD (arteriosclerotic heart disease) ([facility]) 05/04/2011 ??? Erectile dysfunction 01/22/2011 Overview Note: side effect Risperdal ??? Type 2 diabetes mellitus, uncontrolled ([facility]) 12/11/2010 Overview Note: Type II or unspecified type diabetes mellitus without mention of complication, uncontrolled ([facility]) ??? Dermatophytosis of body 09/04/2010 Class: Historical Overview Note: Tinea Corporis ??? Coronary atherosclerosis ([facility]) 12/22/2009 Overview Note: LW Modifier: mod RCA, negative nuclear stress test ; CAD ??? Nonspecific abnormal results of liver function study 12/22/2009 Overview Note: Liver Function Tests Abnormal ??? Bipolar I disorder ([facility]) 09/15/2005 Overview Note: LW Onset: 51Lxe40 ; Bipolar I Dis FAMILY HISTORY OR SICK CONTACTS : History reviewed. No pertinent family history. SOCIAL HISTORY : Social History Tobacco Use ??? Smoking status: Light Tobacco Smoker Packs/day: 1.00 Years: 25.00 Pack years: 25.00 Types: Cigarettes ??? Smokeless tobacco: Former User Quit date: [...] two times a day. ??? insulin degludec 100 UNIT/ML SOPN Inject 42 Units subcutaneously daily at bedtime. ??? insulin pen needle (BD ULTRAFINE JANET) [...] CAPSULE BY MOUTH EVERY DAY 0 ??? metFORMIN (GLUCOPHAGE) 500 MG tablet TAKE 2 TABLETS BY MOUTH TWICE DAILY WITH MEALS 360 Tablet 0 ??? metoprolol succinate (TOPROL XL) 50 MG 24 hour release tablet Take 1 Tablet by mouth daily. 90 Tablet 1 ??? multivitamin (THERAGRAN) tablet Take 1 Tablet by mouth. 01/16/2018: Received from: [facility] Received Sig: Take 1 tablet [...] 3 mg two times a day. ??? insulin degludec (TRESIBA FLEXTOUCH) 200 UNIT/ML SOPN Inject 32 Units subcutaneously daily. 6 mL5 ??? [place] Carbonate 600 MG capsule Take 600 mg by mouth daily at bedtime. 01/16/2018: Received from: External Pharmacy Received Sig: TAKE ONE CAPSULE BY MOUTH AT BEDTIME 0 ??? Vitamin D, Ergocalciferol, 82197 units CAPS Take 50,000 Units by mouth. No facility-administered medications prior to visit. ALLERGIES: [...] Alert, cooperative in no acute distress. He has a flapping tremor of both hands, left greater than right. Affect is somewhat flat Vital Signs: BP 132/85 (BP Location: Right Arm, BP Cuff Size: Regular) Pulse 92 Ht 5' 9.75 (1.772 m) Wt 200 lb (90.7 kg) BMI 28.90 kg/m?? Smells of smoke Eyes: PERRLA, full EOM. Throat: Normal oral mucosa, negative posterior pharynx Neck: Supple, without masses, lymphadenopathy or tenderness. Respiratory: Normal respiratory effort. Heart: RRR Abdomen: The abdomen was soft and nondistended, normal sounds present. No obvious masses or organomegaly. LABS : ASSESSMENT /PLAN ICD-10-CM 1. Atypical chest pain R07.89 2. H/O atrial flutter Z86.79 3. Uncontrolled type 2 diabetes mellitus without complication, without long-term current use of insulin ([facility]) E11.65 4. Tobacco use disorder ([facility]) F17.200 5. Drug-induced tremor G25.1 Tremor management is deferred to Psychiatry. Advised to work on smoking cessation. Recheck in 2 weeks after ZIO patch as interpreted to work on enhancing his diabetes control Follow-up: 2 weeks ATOLOGY NURSE PRACTITIONER documented in this encounter Plan of Treatment Not on filedocumented as of this encounter Visit Diagnoses Diagnosis Atypical chest pain - Primary Other chest pain H/O atrial flutter Personal history of other diseases of ci rculatory system Uncontrolled type 2 diabetes mellitus wi thout complication, without long-term current use of insulin Tobacco use disorder ([facility]) Tobacco use disorder Drug-induced tremor Essential and other specified forms of t remor documented in this encounter Care Teams Youth Manager Relationship Specialty Start Date End Date Gagandeep Hinojosa MD PCP - General 05/17/12 [address] [place] [address] Vane Zarate Psychiatrist Psychiatry 03/22/12 [facility] Mental Health Psychotherapist 08/04/17 [facility] Animal Bounty Hunter 09/13/17 documented as of this encounter
--- OUTSIDE RECORDS SUMMARY | 2022-02-12 12:03 | XMS_ITS | Encounter Summary ---
:1970 Author Organization [employer] Address [address] [place] [address] Care Team Providers Name Role Phone Gagandeep Michaud MD Primary Care Provider Encounter Details Date Type Department Care Team Description 05/21/2019 Refill Order [place] [facility] Gagandeep Michaud MD [address] [facility] . [address] [place] [address] [place] [address] [phone] (Wo rk) Social History Tobacco Use Types Packs/Day Years Used Date Smoking Tobacco: Former Cigarettes 1 25 Smokeless Tobacco: Former Qu it: 10/25/2012 Comments: Smoking History Packs/day: Alcohol Use Standard Drinks/Week Comments No 0 (1 standard drink = 0.6 oz pure Alcoho lic Drinks/day: Amount:0; alcohol) Freq:Never; Sex Assigned at Date Recorded Not on file documented as of this encounter Nursing Notes Theresa Mejía - 05/21/2019 12:32 PM CST Labs to be addressed at future visit. R HANGER Interface, Out Surescripts Prov Query - 05/21/2019 5:31 AM CST SCHEDULE THE FOLLOWING: - HBA1C (PN ONLY) BY: Now (Due as of 02/26/2019 for metFORMIN (GLUCOPHAGE) 500 MG tablet) - LAST QUALIFYING VISIT WITH GAGANDEEP MICHAUD: 05/02/2019 - NEXT SCHEDULED VISIT: None - NEXT LAB APPOINTMENT: None Powered by [employer], Reference: [id number], 05/21/2019 5:31:49 AM Jaxon GRANGER: MANUEL MOORE ([id number]) R HANGER documented in this encounter Plan of Treatment Not on filedocumented as of this encounter Visit Diagnoses Diagnosis Encounter for long-term (current) use of medications - Primary Encounter for long-term (current) use of other medications documented in this encounter Care Teams Auto Parts Clerk Relationship Specialty Start Date End Date Gagandeep Michaud MD PCP - General 05/17/12 14[address] [facility] [place] [address] Vane Zarate Psychiatrist Psychiatry 03/22/12 [facility] Psychotherapist 08/04/17 [facility] Accounts Payable Specialist 09/13/17 documented as of this encounter
--- OUTSIDE RECORDS SUMMARY | 2022-02-12 12:03 | XMS_ITS | Encounter Summary ---
:1970 Author Organization [employer] Address [address], [place] [address] Care Team Providers Name Role Phone Gagandeep Hinojosa MD Primary Care Provider Reason for Visit Reason Comments Other Encounter Details Date Type Department Care Team Description 02/07/2019 Initial Consult [facility] Vashti Rocha, En counter for other Therapy PT specified special [address] E examinations ([place] [address] [place], [place] Dx) [phone] [id number] Social History Tobacco Use Types Packs/Day Years Used Date Smoking Tobacco: Former Cigarettes 1 25 Smokeless Tobacco: Former Qu it: 10/25/2012 Comments: Smoking History Packs/day: Alcohol Use Standard Drinks/Week Comments No 0 (1 standard drink = 0.6 oz pure Alcoho lic Drinks/day: Amount:0; alcohol) Freq:Never; Sex Assigned at Date Recorded Not on file documented as of this encounter Progress Notes Vashti Rocha PT - 02/07/2019 10:00 AM CDT Pre work screen completed. See scanned documents in media. documented in this encounter Plan of Treatment Not on filedocumented as of this encounter Visit Diagnoses Diagnosis Encounter for other specified special ex aminations - Primary documented in this encounter Care Teams Sifter Operator Relationship Specialty Start Date End Date Gagandeep Hinojosa MD PCP - General 05/17/12 [address] [facility] [place] [address] Vane Zarate Psychiatrist Psychiatry 03/22/12 [facility] Mental Health Psychotherapist 08/04/17 [facility] Brinell Tester 09/13/17 documented as of this encounter
--- OUTSIDE RECORDS SUMMARY | 2022-02-12 12:03 | XMS_ITS | Encounter Summary ---
:1970 Author Organization [employer] Address [address] [place] [address] Care Team Providers Name Role Phone Gagandeep Hinojosa MD Primary Care Provider Reason for Visit Reason Comments Follow-up Encounter Details Date Type Department Care Team Description 06/11/2019 Office Visit Gagandeep Storm r for work capability assessment (Primary Dx); Romario Rubio MD Screening for tuberculosis; [address] [facility] Drug-[place] [address] [address] [phone] [place], [place] [address] Social History Tobacco Use [...] Sign Reading Time Taken Comments Blood Pressure 137/80 06/11/2019 1:00 PM MANAGER OF PMO Pulse 95 06/11/2019 1:00 PM MANAGER OF PMO Temperature - - Respiratory Rate - - Oxygen Saturation - - Inhaled Oxygen Concentration - - Weight 93.9 kg (207 lb) 06/11/2019 1:00 PM MANAGER OF PMO Height - - Body Mass Index 29.7 07/27/2018 1:49 PM CDT documented in this encounter Progress Notes Gagandeep Hinojosa MD - 06/11/2019 1:00 PM CST ICD-10-CM 1. Encounter for work capability assessment Z00.8 2. Screening for tuberculosis Z11.1 TB SKIN TEST (PPD) 3. Drug-induced tremor G25.1 CHIEF COMPLAINT: Chief Complaint Patient presents with ??? Follow-up SUBJECTIVE : Timur Krishnamurthy is an 49 y.o. male who presents for multiple concerns. 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 In addition, he needs documentation that he isable to lived between 50 and 75 lb without restrictions. He has a long psychiatric history, and has developed bilateral hand tremors. He has a history of exposure to numerous major tranquilizers, including Haldol, to which he is allergic. He is chronically on risperidone, which has a statistically high rate of induced Parkinson's like tremor. He is currently managed by Psychiatry, although he reports his psychiatrist is nearing long term. He has had significant psychiatric breaks including bipolar dissociations, etc. and I would be reluctant to modify his medications. PROBLEM LIST: Patient Active Problem List Diagnosis Date Noted ??? Non-proliferative diabetic retinopathy ([facility]) 05/02/2019 ??? Hyponatremia 01/16/2018 ??? Tinea versicolor 07/18/2015 ??? Tobacco use disorder ([facility]) 10/26/2012 ??? Anemia 05/02/2012 Overview Note: Anemia, unspecified ??? Microalbuminuria 02/04/2012 ??? [place], old ([facility]) 09/16/2011 ??? History of PTCA 09/16/2011 Overview Note: History of PTCA 04/2011 BMS RCA ??? Obesity, Class I, BMI 30-34.9 ([facility]) 09/16/2011 Overview Note: Body mass index is 31.16 kg/(m^2). ??? Hyperlipidemia with target LDL less than 70 ([facility]) 06/08/2011 Overview Note: Hyperlipidemia LDL goal < 70 ??? ASHD (arteriosclerotic heart disease) ([facility]) 05/04/2011 ??? Erectile dysfunction 01/22/2011 Overview Note: side effect Risperdal ??? Type 2 diabetes mellitus, uncontrolled ([facility]) 12/11/2010 Overview Note: Type II or unspecified type diabetes mellitus without mention of complication, uncontrolled ([facility]) ??? Dermatophytosis of body 09/04/2010 Class: Historical Overview Note: Tinea Corporis ??? Coronary atherosclerosis ([facility]) 12/22/2009 Overview Note: LW Modifier: mod RCA, negative nuclear stress test ; CAD ??? Nonspecific abnormal results of liver function study 12/22/2009 Overview Note: Liver Function Tests Abnormal ??? Bipolar I disorder ([facility]) 09/15/2005 Overview Note: LW Onset: 81Otg50 ; Bipolar I Dis FAMILY HISTORY OR [...] topically daily. (Patient not taking: Reported on 06/11/2019) 500 mL 11 ??? aspirin 81 MG [...] CAPSULE BY MOUTH EVERY DAY 0 ??? [place] Carbonate 600 MG capsule Take 600 mg [...] 1 Tablet by mouth. 01/16/2018: Received from: [facility] Received Sig: Take 1 tablet by mouth [...] times a day. ??? Vitamin D, Ergocalciferol, 72925 units CAPS Take 50,000 Units by mouth. [...] Gen.: Alert, cooperative in no acute distress. Appears calm, no confrontational behavior Vital Signs: BP 137/80 (BP Location: Right Arm, BP Cuff Size: Small Adult/Large Pediatrics) Pulse 95 Wt 207 lb (93.9 kg) BMI 29.70 kg/m?? Eyes: PERRLA, full EOM. . Respiratory: Normal respiratory effort. Heart: RRR Abdomen: The abdomen was soft and nondistended, normal sounds present. No obvious masses or organomegaly. Extremities: He has clear bilateral hand tremor, left greater than right. However, it is more oscillatory than pill rolling. Neurologic: No cogwheeling, no difficulty rising from chair. His face is somewhat flat, he has minimal arm swing when he walks. LABS : Pending ASSESSMENT /PLAN ICD-10-CM 1. Encounter for work capability assessment Z00.8 2. Screening for tuberculosis Z11.1 TB SKIN TEST (PPD) 3. Drug-induced tremor G25.1 Letter affirming his ability to lift 50-75 lb. Follow-up: In July for routine diabetes management. Would defer to a psychiatrist with regard to medication management of his tremor. GER OF PMO documented in this encounter Nursing Notes Diana Zambrano LPN - 06/11/2019 1:00 PM CST Pt refused immunizations GER OF PMO documented in this encounter Plan of Treatment Not on filedocumented as of this encounter Procedures Procedure Name Priority Date/Time Associated Diagnosis Comme nts TB SKIN TEST (PPD) Routine 06/14/2019 10:53 Screening for Resu lts for this AM MANAGER OF PMO tuberculosis procedure are i n the results section. documented in this encounter Results TB SKIN TEST (PPD) (06/14/2019 10:53 AM MANAGER OF PMO) P athologist Signature TB Skin Test 0.0 MM EXTERNAL RESULTS Gagandeep Hinojosa MD [facility] IMMUNIZATION Performing Organization Address City/State/ZIP Code Phon e Number EXTERNAL RESULTS documented in this encounter Visit Diagnoses Diagnosis Encounter for work capability assessment - Primary Screening for tuberculosis Screening examination for pulmonary tube rculosis Drug-induced tremor Essential and other specified forms of t remor documented in this encounter Care Teams Microbiology Quality Control Technician Relationship Specialty Start Date End Date Gagandeep Hinojosa MD PCP - General 05/17/12 [address] [place] [address] Vane Zarate Psychiatrist Psychiatry 03/22/12 [facility] Psychotherapist 08/04/17 [facility] Production Weigher 09/13/17 documented as of this encounter
--- OUTSIDE RECORDS SUMMARY | 2022-02-12 12:04 | XMS_ITS | Encounter Summary ---
:1970 Author Organization [employer] Address [address] [address] Care Team Providers Name Role Phone Gagandeep Hinojosa MD Primary Care Provider Reason for Visit Reason Comments DIABETES EDUCATION Encounter Details Date Type Department Care Team Description 08/01/2018 Care Coord Office Judy Luke RN DIABETES EDUCATION Visit Medicine [address] . [place] [address] [place] [phone] Social History Tobacco Use Types Packs/Day Years Used Date Smoking Tobacco: Former Cigarettes 1 25 Smokeless Tobacco: Former Qu it: 10/25/2012 Comments: Smoking History Packs/day: Alcohol Use Standard Drinks/Week Comments No 0 (1 standard drink = 0.6 oz pure Alcoho lic Drinks/day: Amount:0; alcohol) Freq:Never; Sex Assigned at Date Recorded Not on file documented as of this encounter Patient Instructions Patient InstructionsJudy Pittman RN - 08/01/2018 1:00 PM CDT ?? Resume taking insulins consistently, as prescribed. ?? Tresiba 32 units daily. ?? Regular insulin 2 units per carb choice, 30 minutes BEFORE meals, twice a day. ?? Take metformin twice daily with meals. ?? Check your blood sugar twice daily, fasting and 2 hours after your largest meal. ?? Scheduled follow up on 08/08/18 at 11:00 AM, bring log book. documented in this encounter Progress Notes Judy Pittman RN - 08/01/2018 1:00 PM CDT RN Program Director Scouting Visit Pt: Timurcole Krishnamurthy Referred by: Gagandeep Hinojosa MD Reason for referral: Diabetes type 2 uncontrolled Most recent vitals signs: Wt Readings from Last 3 Encounters: 07/27/18 197 lb 1.6 oz (89.4 kg) 01/16/18 206 lb (93.4 kg) 08/15/17 205 lb (93 kg) BP Readings from Last 3 Encounters: 07/27/18 (!) 146/90 01/16/18 124/76 08/15/17 126/78 Most recent lab results: HGB A1C (%) Date Value 01/19/2018 8.0 (H) Lab Results Component Value Date/Time LDL 40 08/15/2017 08:43 AM LDL 123 07/13/2013 10:39 AM Social History Tobacco Use ??? Smoking status: Former Smoker Packs/day: 1.00 Years: 25.00 Pack years: 25.00 Types: Cigarettes ??? Smokeless tobacco: Former User Quit date: 10/25/2012 ??? Tobacco comment: Smoking History Packs/day: Substance Use Topics ??? Alcohol use: No Comment: Alcoholic Drinks/day: Amount:0; Freq:Never; Current diabetes medications: Metformin (Glucophage) 1,000 mg BID Tresiba (insulin degludec U-200) 32 units daily ReliOn R 2 units per CHO choice, plus sliding scale Aspirin: yes - 81 mg Glucose meter: One Touch Ultra 2 CURRENT GLUCOSE PATTERNS: Rustam forgot to bring his readings today From memory, range: 140 - 310 Hypoglycemia (previous two weeks): none ASSESSMENT: Rustam is here for DM follow up. He was referred for care coordination services by Dr. Hinojosa to assist with DM education, medication titration, and financial resources. Mental Health and Smoking Cessation Rustam reports he quit smoking in 10/2018. I congratulated Rustam on reaching his goal. I also inquiredas to why Rustam discontinued his DM follow-up last year and did not return any of my calls. Rustam reports he was ???isolating?? himself due to his mental health and notes he has been experiencing increased anxiety. Rustam became tearful and started crying, stating that his marriage isn't going well. He states, I do not think my would leave me because she needs me to pay the rent, but I do not think she loves me any more. I inquired about marriage counseling, but Rustam reports his isn't interested. He noted, ???I do not think were going to leave one another, we will likely just coexist?? . Again, Rustam became tearful stating, ???I would not have any family if she leaves me?? . I inquired about Rustam's support system. Rustam states he would not have anywhere to go if his asked him to leave. He continues to see his therapist, Curtis Cai, once a week and assures me they are talking through these issues and working on a plan together. Also, Rustam continues to work with his psychiatrist, Dr. Vane Zarate. He noted that his mental health medications have been adjusted, so we updated his medication list. Financial Concerns Rustam continues to have significant financial concerns. He has been unable to work since he left hisjob at the [employer] last summer. Rustam reports he has been connected with [employer], a resource provided by his therapist, that is helping him to find part-time work. Apparently, Rustam's Social Security is enough to cover the rent, but does not leave much for the rest of his bills, which means he needs to rely on his for other expenses, including medications. Because of he is , their combined income is far over the amount that is eligible for assistance. Medication Unfortunately, Rustam's A1c increased from 8% to 10.9%. Rustam reports the increase was primarily due to rationing his insulin when he realized he could not afford it toward the end of last year. He alsoadmitted that he has not been taking his insulin regularly, stating I got off track. Dr. Hinojosa had suggested replacing Tresiba with Relion N to help reduce cost. However, Rustam has taken Relion N in the past and because of his significant insulin resistance, he needed to purchase a large quantityper month which did not end up saving him any money, and he required more injections, which resultedin a decrease in his compliance. Rustam states he would rather continue using Tresiba and I offered to do what I can to help with samples. In addition, Rustam agrees to take all his insulin as prescribedgoing forward. Blood Glucose Rustam reports he has been SMBG fasting and HS, however he forgot to bring in his readings today. I reminded Rustam that he must check his BG at least twice daily for safety while taking insulin. I also noted that Rustam cannot use his sliding scale if he isn't testing his BG before dinner. Therefore, I stressed the importance of testing his BG TID; fasting, before his largest meal, and 2 hours after his largest meal. Follow up Rustam understands that I cannot make any adjustments with his insulin until he resumes his prescribed dosing and provides BG readings. Therefore, Rustam agrees to take his insulin as prescribed and record his BG readings. We will follow up next week. Rustam states he still has my contact information programmed into his phone and agrees to call with any questions or problems. Family/social support: Patient attended today's visit alone. He currently lives with spouse. Current activity regimen: none Patient barrier(s) to learning identified: Finance, Emotional and Transportation. BG Goals: [facility] Goal <7 Pre-meal: 70-130 mg/dL PPG: <180 mg/dL Bedtime: 90-150 mg/dL A1c: <7.0% Recommended testing frequency: Before breakfast, before main meal and 2 hours after start of main meal Education content covered today: Insulin Dosing BG Monitoring Rustam received verbal instructions and written materials tailored to his preferred method of learning. Literacy level assessed (as appropriate). Interventions, including teach back, used to verify understanding. SHARED PLAN: Resume Tresiba 32 units daily, as prescribed. Resume Relion R 2 units per CHO choice, plus sliding scale, as prescribed. SMBG tid as directed, record readings. RN Program Director Scouting as needed for questions. Scheduled follow up on 08/08/18, bring BG readings. Rustam to call if symptoms of hypoglycemia or readings < 70 mg/dL. Rustam verbalized understanding and agreed with plan of care and follow up. documented in this encounter Plan of Treatment Not on filedocumented as of this encounter Visit Diagnoses Diagnosis Uncontrolled type 2 diabetes mellitus wi th complication, with long-term current use of insulin documented in this encounter Care Teams Digital Photo Printer Relationship Specialty Start Date End Date Gagandeep Hinojosa MD PCP - General 05/17/12 [address] [facility] [place] [address] Vane Zarate Psychiatrsamantha Psychiatry 03/22/12 [facility] Mental [facility] Psychotherapist 08/04/17 [facility] Soccer Ball Assembler 09/13/17 documented as of this encounter
--- OUTSIDE RECORDS SUMMARY | 2022-02-12 12:04 | XMS_ITS | Encounter Summary ---
:1970 Author Organization [employer] Address [address] [place] [address] Care Team Providers Name Role Phone Gagandeep Hinojosa MD Primary Care Provider Encounter Details Date Type Department Care Team Description 01/19/2018 Lab Visit [facility] Encounter for long-term [address] (current) use of [place] [address] medications [phone] Social History Tobacco Use Types Packs/Day Years [...] Name Priority Date/Time Associated Diagnosis Comme nts T3, FREE Routine 01/19/2018 11:41 Encounter for Results fo r this AM CDT long-term (current) procedur e are in use of medications the resul ts section. CREATININE / GFR Routine 01/19/2018 11:41 Encounter for Result s for this AM CDT long-term (current) procedur e are in use of medications the resul ts section. TSH, SENSITIVE Routine 01/19/2018 11:41 Encounter for Results for this AM CDT long-term (current) procedur e are in use of medications the resul ts section. FREE T4 Routine 01/19/2018 11:41 Encounter for Results fo r this AM CDT long-term (current) procedur e are in use of medications the resul ts section. LITHIUM Routine 01/19/2018 11:41 Encounter for Results fo r this AM CDT long-term (current) procedur e are in use of medications the resul ts section. HGB A1C Routine 01/19/2018 11:41 Encounter for Results fo r this AM CDT long-term (current) procedur e are in use of medications the resul ts section. SODIUM Routine 01/19/2018 11:41 Encounter for Results fo r this AM CDT long-term (current) procedur e are in use of medications the resul ts section. CALL LIST QUESTIONS Routine 01/19/2018 11:35 Encounter for Res ults for this AM CDT long-term (current) procedur e are in use of medications the resul ts section. documented in this encounter Results Free T4 (01/19/2018 11:41 AM CDT) athologist Signature Thyroxine, Free 0.7 0.7 - 1.5 PN SOFT ng/dL Specimen Anatomical Collection Method Collection Time Receive d Time (Source) Location / / Volume Laterality 01/19/2018 11:41 01/19/2018 3:07 AM CDT PM CDT Narrative PN SOFT - 01/19/2018 4:07 PM [place] [address] CLIA number [id number] Joey Zarate MD LAB_1 Performing Organization Address City/State/ZIP Code Phon e Number PN SOFT [address] [place] [address] T3, Free, Serum (01/19/2018 11:41 AM CDT) athologist Signature Triiodothyronin 2.5 1.7 - 3.7 PN SOFT e, Free pg/mL Specimen Anatomical Collection Method Collection Time Receive d Time (Source) Location / / Volume Laterality 01/19/2018 11:41 01/19/2018 3:07 AM CDT PM CDT Narrative PN SOFT - 01/19/2018 4:07 PM CDT Performed at [place] [address] [place] [address] CLIA number [id number] .Results faxed to Jennifer Zarate M.D 9,[id number], 01/19/2018,16:15, by [place]ROE Joey Zarate MD LAB_1 Performing Organization Address [facility] Code Phon e Number PN SOFT [address] [place] [address] (ABNORMAL) TSH (01/19/2018 11:41 AM CDT) Patholo gist Method Time Signature Thyroid 4.52 (H) 0.30 - PN SOFT Stimulating 4.50 Hormone uIU/mL Specimen Anatomical Collection Method Collection Time Receive d Time (Source) Location / / Volume Laterality 01/19/2018 11:41 01/19/2018 3:07 AM CDT PM CDT Narrative PN SOFT - 01/19/2018 4:07 PM CDT Performed at [facility] [place] [address] CLIA number [id number] Joey Zarate MD LAB_1 Performing Organization Address [facility] Code Phon e Number PN SOFT [address] [place] [address] (ABNORMAL) Sodium (01/19/2018 11:41 AM CDT) P athologist Signature Sodium 135 (L) 136 - 145 PN SOFT mmol/L Specimen Anatomical Collection Method Collection Time Receive d Time (Source) Location / / Volume Laterality 01/19/2018 11:41 01/19/2018 2:49 AM CDT PM CDT Narrative PN SOFT - 01/19/2018 3:54 PM CDT Performed at [facility], [address] [place] [address] CLIA number [id number] Joey Zarate MD LAB_1 Performing Organization Address [facility] Phon e Number PN SOFT [address] [place] [address] (ABNORMAL) Creatinine / GFR (01/19/2018 11:41 AM CDT) Analysis Performed At Patho logist Time Signature Creatinine 0.70 (L) 0.73 - PN SOFT Serum 1.18 mg/dL Est GFR >60 >60 PN SOFT Am mL/min/1.7 3m2 Est GFR Non-Afr >60 >60 PN SOFT Am mL/min/1.7 3m2 Comment: Normal>60, moderate decrease 30 - 59, se lenora decrease 15 - 29, renal failure <15 mL/min/1.73 m2 NOTE: ??Choose the eGFR result above kaylee ropriate for the race of the patient. Specimen Anatomical Collection Method Collection Time Receive d Time (Source) Location / / Volume Laterality 01/19/2018 11:41 01/19/2018 2:49 AM CDT PM CDT Narrative PN SOFT - 01/19/2018 3:54 PM CDT Performed at [facility], [address] [place] [address] CLIA number [id number] Joey Zarate MD LAB_1 Performing Organization Address [facility] Phon e Number PN SOFT [address] [place] [address] [phone] [place] (01/19/2018 11:41 AM CDT) Analysis Performed At Patho logist Time Signature Date Last Dose 01-19-2018 PN SOFT Lith Time Last Dose 730 am PN SOFT [place] Shipman Level 0.73 0.50 - PN SOFT 1.10 mmol/L Specimen Anatomical Collection Method Collection Time Receive d Time (Source) Location / / Volume Laterality 01/19/2018 11:41 01/19/2018 3:09 AM CDT PM CDT Narrative PN SOFT - 01/19/2018 3:38 PM CDT Performed at [facility], [address] [place] [address] CLIA number [id number] Joey Zarate MD LAB_1 Performing Organization Address [facility] Phon e Number PN SOFT [address] [place] [address] (ABNORMAL) Hgb A1c (01/19/2018 11:41 AM CDT) P athologist Signature HGB A1C 8.0 (H) 4.0 - 5.6 % PN SOFT Specimen Anatomical Collection Method Collection Time Receive d Time (Source) Location / / Volume Laterality 01/19/2018 11:41 01/19/2018 3:10 AM CDT PM CDT Narrative PN SOFT - 01/19/2018 10:04 PM CDT Performed at [facility], [facility] [place] [address] CLIA number [id number] .Results faxed to Jennifer Zarate M.D 9,[phone], 01/19/2018,16:15, by [place] Joey Zarate MD LAB_1 Performing Organization Address City/[facility] Phon e Number PN SOFT [address] [place] [address] Call List Questions (01/19/2018 11:35 AM CDT) athologist Signature Call Back Done PN KENDAL Documented Specimen (Source) Anatomical Collection Method Collection Time Re ceived Time Location / / Volume Laterality 01/19/2018 11:35 AM CDT Narrative PN SOFT - 01/19/2018 11:35 AM CDT Performed at [facility], [address] [place] [address] CLIA number [id number] Joey Zarate MD LAB_1 Performing Organization Address [facility] Phon e Number SOFT [address] [place] [address] [phone] documented in this encounter Visit Diagnoses Diagnosis Encounter for long-term (current) use of medications Encounter for long-term (current) use of other medications documented in this encounter Care Teams Claims Adjuster Crop Relationship Specialty Start Date End Date Gagandeep Hinojosa MD PCP - General 05/17/[address] [place] [address] Vane Zarate Psychiatrist Psychiatry 03/22/12 [facility] Psychotherapist 08/04/17 [facility] Auto Travel Counselor 09/13/17 documented as of this encounter
--- OUTSIDE RECORDS SUMMARY | 2022-02-12 12:04 | XMS_ITS | Encounter Summary ---
:1970 Author Organization [employer] Address [address] [place] [address] Care Team Providers Name Role Phone Gagandeep Hinojosa MD Primary Care Provider Reason for Visit Reason Comments Appt. Work In Request APWI for today, Pt having lo w back pain to the left side, possible pinched nerve. Encounter Details Date Type Department Care Team Description 10/13/2018 Nurse Triage Ggaandeep Storm Appt. Wo rk In Request Romario Rubio MD (APWI for today, Pt [address] [place] [address] Ave to the left side, [place] [address] possible pinched [phone] nerve. ) (Work) Social History Tobacco Use Types Packs/Day Years Used Date Smoking Tobacco: Former Cigarettes 1 25 Smokeless Tobacco: Former Qu it: 10/25/2012 Comments: Smoking History Packs/day: Alcohol Use Standard Drinks/Week Comments No 0 (1 standard drink = 0.6 oz pure Alcoho lic Drinks/day: Amount:0; alcohol) Freq:Never; Sex Assigned at Date Recorded Not on file documented as of this encounter Nursing Notes Danelle Garcia RN - 10/13/2018 8:57 AM CDT Patient calls reporting new onset low back pain starting 1 day ago. Describes it as an intense, sharp pain to low back that radiates to left side. It is only present during position changing, specifically sitting to standing and pain is brief lasting only 30 seconds to one minute. Patient states he does not have a history of back pain, it feels like a pinched nerve of some sort, denies injury or precipitating cause that he is aware of. Requests to be seen today if possible but states pain is tolerable at this time. Denies numbness/tingling, weakness. Reason for Disposition ??? Patient wants to be seen Protocols used: BACK [id number] Analy Elias - 10/13/2018 8:52 AM CDT Appointments - Same Day/Sooner Patient would like appointment with his provider. Current PCP: Gagandeep Hinojosa MD If requested clinician is unavailable, is it okay to be seen by another clinician? Yes What is the patient requesting to be seen for? APWI for today, Pt having low back pain to the left side, possible pinched nerve. Wants/Needs to be seen within: today Additional comments (related to the above concern): If there are questions regarding your request, is it okay to leave detailed message on your voicemail? Yes (Advise caller that the PN call back number will end with [phone] or unknown) (Please schedule next available appointment if patient is willing, in case work- in is not possible) Please route to: Appropriate pool per call routing grid documented in this encounter Plan of Treatment Not on filedocumented as of this encounter Visit Diagnoses Not on filedocumented in this encounter Care Teams Therapeutic Recreation Specialist Relationship Specialty Start Date End Date Gagandeep Hinojosa MD PCP - General 05/17/12 [address] [facility] [place] [address] Vane Zarate Psychiatrist Psychiatry 03/22/12 [facility] Psychotherapist 08/04/17 [facility] Dental Patient Coordinator 09/13/17 documented as of this encounter
--- OUTSIDE RECORDS SUMMARY | 2022-02-12 12:04 | XMS_ITS | Encounter Summary ---
:1970 Author Organization [employer] Address [address] [place] [address] Care Team Providers Name Role Phone Gagandeep Hinojosa MD Primary Care Provider Reason for Visit Reason Comments [facility] Face To Face Visit Encounter Details Date Type Department Care Team Description 02/15/2018 Care Coord Deborah Odom, [facility] Fa ce To Face Office Visit Medicine [facility] Visit [address] [facility]. [facility] [place] [address] [place] [address] [phone] Social History Tobacco Use Types Packs/Day Years Used Date Smoking Tobacco: Former Cigarettes 1 25 Smokeless Tobacco: Former Qu it: 10/25/2012 Comments: Smoking History Packs/day: Alcohol Use Standard Drinks/Week Comments No 0 (1 standard drink = 0.6 oz pure Alcoho lic Drinks/day: Amount:0; alcohol) Freq:Never; Sex Assigned at Date Recorded Not on file documented as of this encounter Progress Notes Deborah Rodrigues, [facility] - 02/15/2018 11:00 AM CDT Care Coordination Visit Pt: Timur Krishnamurthy Referred by: Gagandeep Hinojosa MD Reason for visit: Care Coordination Timur was seen alone. Discussion/actions: Met with Rustam for a scheduled [facility] appointment. RN Manager Books, Judy Pittman, was present for the appointment. Judy addressed Rustam's physical health and helped manage his diabetes. Judy also assisted Rustam in entering his medications in the Medicare.gov website, so Rustam could decide about applying for supplemental insurance. During his HC appointment next week, I will assist him in calling the Senior Linkage Line about plan options. I have his medication ID number available to give them. Rustam reports that his mood has been really good and his anxiety is under control. He denies any thoughts of suicide and said he is taking his medication as prescribed. He is following up with a psychiatrist here today, and will be working closely with her regarding any changes to medications. Keli agreed to talk to his psychiatrist about the possibility of taking generic medications, as they may be more affordable for him. Rustam stated that he met with his CM a couple of weeks ago, and Mary meet with her again in a couple weeks. He reports that he spoke with her about meeting more regularly and helping get him involved with mental health groups, but she has not gotten back to me. I encouraged Rustam to follow-up with his CM, so he knows the plan. Rustam did say that he attends the [employer] [facility] once a week, and feels like this is beneficial for him. Rustam stated that his got fired from her job, so she has been home more regularly with him. Rustam said they are getting along pretty good, and have been spending more time with her grandchildren. Rustam continues to not smoke, which she is very proud of. He denies any other concerns at this timeand stated he is going to continue not working, until he is more stable mentally. Rustam scheduled a follow-up HC appointment for next week and will call if he needs something before then. This note was produced using voice recognition software and may contain typographic or phonetic errors. Patient barrier(s) to learning identified: Finance, Disease state and Emotional. Patient received verbal instructions and written materials tailored to his or her preferred method of learning. Literacy level assessed (as appropriate). Interventions, including teach back, used to verify understanding. Patient Goal(s): 1. I want to have better mental health. ?Goal: in process 2. I want to pay my bills. ?Goal: in process ? SHARED PLAN: -Psychiatry appointment 02/15 at 6:00. -SW Care Coordination appointment 02/21 at 8:00. -SW/RN Care Coordination appointment 02/28??at 11:00. - CM appointment regularly. -Therapy appointment weekly. ? Pt verbalized understanding and agreed with plan??of care and follow up. documented in this encounter Plan of Treatment Not on filedocumented as of this encounter Visit Diagnoses Diagnosis Health senior living, active care coordinati on - Primary documented in this encounter Care Teams Renal Dietitian Relationship Specialty Start Date End Date Gagandeep Hinojosa MD PCP - General 05/17/12 [address] [place] [address] Vane Zarate Psychiatrist Psychiatry 03/22/12 [facility] Psychotherapist 08/04/17 [facility] CM Window Shade Cloth Sewer 09/13/17 documented as of this encounter
--- OUTSIDE RECORDS SUMMARY | 2022-02-12 12:04 | XMS_ITS | Encounter Summary ---
:1970 Author Organization [employer] Address [address] [place] [address] Care Team Providers Name Role Phone Gagandeep Michaud MD Primary Care Provider Reason for Visit Reason Onset Date Comments Refill 06/07/2018 amLODIPine (NORVASC) 10 MG tablet Encounter Details Date Type Department Care Team Description 06/07/2018 Refill [facility] Gagandeep Michaud, Refil l (amLODIPine Medicine (NORVASC) 10 MG tablet) [address] [facility] . [address] [place] [address] [place], [place] [id number] (Wo rk) Social History Tobacco Use Types [...] this encounter Nursing Notes Viviana Anderson - 06/09/2018 12:09 PM CST Lm to schedule a med check for further refills per provider. ERNMAKER HAND Gagandeep Michaud MD - 06/08/2018 10:28 AM CST Call patient ERNMAKER HAND Merlyn Urias RN - 06/08/2018 10:27 AM CST Further Assistance Needed on Refill from Clinician RN reviewed. Signed order needed. Requested medication listed as historical Last qualifying visit: 01/16/2018 (with GAGANDEEP MICHAUD) ? Next scheduled visit: None ?? Review pended order for accuracy and sign if appropriate, Document if appointment is needed for further refills and route to care team to notify patient if needed. Requested Prescriptions Pending Prescriptions Disp Refills ??? amLODIPine (NORVASC) 10 MG tablet 90 Tablet 2 Sig: Take 1 Tablet by mouth daily. ERNMAKER HAND Interface, Out Surescripts Prov Query - 06/07/2018 3:34 PM CST amLODIPine (NORVASC) 10 MG tablet Medication started: 01/10/2018 Last ordered by UNKNOWN, PHYSICIAN: 01/10/2018 (148 days ago as Historical on 01/16/2018 by LULI JUSTIN), Sig: take 10 mg by mouth daily. (changed) -> This medication may not have been authorized by the requested provider. -> The requested medication was previously set to Historical. -> The requested sig has changed from the last order. -> Refill x 9 months, qty: 90, refills: 2 (until due for an office visit) Last qualifying visit: 01/16/2018 (with GAGANDEEP MICHAUD) Next scheduled visit: None SBP: 124 mm Hg on 01/16/2018 DBP: 76 mm Hg on 01/16/2018 Powered by b-datum, Reference: [id number], 06/07/2018 3:34:49 PM PATTERNMAKER HAND, Pool: MANUEL LANDACHIP ([id number]) ERNMAKER HAND documented in this encounter Plan of Treatment Not on filedocumented as of this encounter Visit Diagnoses Diagnosis Uncontrolled type 2 diabetes mellitus wi thout complication, without long-term current use of insulin documented in this encounter Care Teams Msws Relationship Specialty Start Date End Date Gagandeep Michaud MD PCP - General 05/17/12 14[address] [facility] [place] [address] Vane Zarate Psychiatrist Psychiatry 03/22/12 [facility] Health Psychotherapist 08/04/17 [facility] Hair Machine Operator 09/13/17 documented as of this encounter
--- OUTSIDE RECORDS SUMMARY | 2022-02-12 12:04 | XMS_ITS | Encounter Summary ---
:1970 Author Organization [employer] Address [address] [place] [address] Care Team Providers Name Role Phone Gagandeep Hinojosa MD Primary Care Provider Reason for Visit Reason Comments Lab Questions Encounter Details Date Type Department Care Team Description 01/23/2018 Telephone [facility] Gagandeep Hinojosa MD Lab Questions [address] [facility] . [address] [place] [address] [place] [address] [phone] (Wo rk) Social History Tobacco Use Types Packs/Day Years Used Date Smoking Tobacco: Former Cigarettes 1 25 Smokeless Tobacco: Former Qu it: 10/25/2012 Comments: Smoking History Packs/day: Alcohol Use Standard Drinks/Week Comments No 0 (1 standard drink = 0.6 oz pure Alcoho lic Drinks/day: Amount:0; alcohol) Freq:Never; Sex Assigned at Date Recorded Not on file documented as of this encounter Nursing Notes Gladys Reddy RN - 01/23/2018 10:16 AM CDT Spoke with pt. Informed that PCP was recommending to have K+ rechecked within the next 4 weeks. All questions answered. Verbalizes understanding of info. To call back if has further concerns/questions. Problem list reviewed as related to this call. IT Gavin Reyes - 01/23/2018 9:59 AM CDT Miscellaneous Questions & FYI's - Question/Concern What is your question or concern? Pt has questions about what lab work has to be done? Please call back. Is it okay to leave a detailed message on your voicemail? Yes (Advise caller that the PN call back number will end with [phone] or unknown) Please route to: Appropriate pool per call routing grid documented in this encounter Plan of Treatment Not on filedocumented as of this encounter Visit Diagnoses Not on filedocumented in this encounter Care Teams Head Correction Officer Relationship Specialty Start Date End Date Gagandeep Hinojosa MD PCP - General 05/17/[address] [place], [place] [address] [address] Vane Zarate Psychiatrist Psychiatry 03/22/12 [facility] Health Psychotherapist 08/04/17 [facility] Family Lawyer 09/13/17 documented as of this encounter
--- OUTSIDE RECORDS SUMMARY | 2022-02-12 12:04 | XMS_ITS | Encounter Summary ---
:1970 Author Organization [employer] Address [address] [place] [address] Care Team Providers Name Role Phone Gagandeep Hinojosa MD Primary Care Provider Reason for Visit Reason Comments HC Face To Face Visit Encounter Details Date Type Department Care Team Description 02/15/2018 Care Coord Judy Luke RN [facility] Face To Face Office Visit Medicine [address] [facility] Visit [address] [place] [id number] Social History Tobacco Use Types Packs/Day Years [...] encounter Progress Notes Judy Pittman RN - 02/15/2018 11:00 AM CDT RN Clinical Reviewer Visit Pt: Timur Krishnamurthy Referred by: Gagandeep Hinojosa MD Reason for referral: Diabetes type 2 controlled Most recent vitals signs: Wt Readings from Last 3 Encounters: 01/16/18 206 lb (93.4 kg) 08/15/17 205 lb (93 kg) 08/05/17 213 lb (96.6 kg) BP Readings from Last 3 Encounters: 01/16/18 124/76 08/15/17 126/78 08/05/17 134/82 Most recent lab results: HGB A1C (%) Date Value 01/19/2018 8.0 (H) Lab Results Component Value Date/Time LDL 40 08/15/2017 08:43 AM LDL 123 07/13/2013 10:39 AM Social History Substance Use Topics ??? Smoking status: Former Smoker Packs/day: 1.00 Years: 25.00 Types: Cigarettes ??? Smokeless tobacco: Former User Quit date: 10/25/2012 Comment: Smoking History Packs/day: ??? Alcohol use No Comment: Alcoholic Drinks/day: Amount:0; Freq:Never; Current diabetes medications: Metformin (Glucophage) 1,000 mg BID Tresiba (insulin degludec U-200) 32 units daily ReliOn R 1.5 units per CHO choice plus sliding scale Aspirin: yes - 81 mg Glucose meter: One Touch Ultra 2 CURRENT GLUCOSE PATTERNS: 02/09/18 Fastin - 180 2 hours after largest meal: 152 - 194 Hypoglycemia (previous two weeks): none ASSESSMENT: Rustam is here for his bi-weekly follow up, this is a joint visit with Lesly Rodrigues, [facility] Clinical Reviewer. Mental Health and Smoking Cessation See Lesly's note for documentation. Financial Concerns See Lesly's note for documentation. Insurance Rustam has straight Medicare coverage and needs to enroll in supplemental coverage to help reduce hismedical costs. I reminded Rustam that it is currently Open-Enrollment for Medicare and entered all his medication into Medicare.gov. We called the Senior Linkage Line for assistance with reviewing plan options, but there was an excessive hold time and Rustam did not have his new Medicare number. Therefore, Rustam agreed to come back to see Lesly next week and try to call again. He agreed to bring his new Medicare card. Medication Upon entering Jeysons medication into Medicare.gov, I noticed some discrepancies. Also, it appears there may be a generic option for Invega. I updated Rustam's medication list to accurately reflect whathe is currently taking. Edwin states he is scheduled to see his psychiatrist, Dr Huff today, so I requested he ask her about possibly switching to the generic form of Invega to help reduce cost. Rustam agreed. Rustam's BG readings have improved significantly with the recent insulin adjustments. However, they are all still above goal, so I recommended increasing his Tresiba dose to 34 units daily. Previously, I recommended increasing his Regular insulin from 1.5 units to 2 units per CHO choice, but Rustam admits he forgot to make that adjustment. I recorded both insulin changes in his log book. Blood Glucose Rustam has been SMBG fasting and HS, I thanked him for bringing in his readings today. I reminded Rustam that he cannot use his sliding scale if he isn't testing his BG pre-prandially. Therefore, I stressed the importance of testing his BG TID; fasting, before his largest meal, and 2 hours after his largest meal. I highlighted the testing times in his log book to help him remember. Diet Rustam states he is eating 3 times a day and trying to stay at 4 CHO choices (60 grams) per meal. He has cut back his coffee intake to 16 oz per day and his diet soda intake to 24 oz per day. Rustam alsoreports he has increased his water intake considerably. Also, he weighed himself today at 199 lbs, which I confirmed is a 30 lb loss since April 2017. I congratulated Rustam on his weight loss. Follow up Rustam will follow up with Lesly next week to enroll in a Medicare supplement plan, and with Lesly and myself in 2 weeks to review his mental health and DM management. He knows to call sooner if he has any questions about his insulin. Family/social support: Patient attended today's visit alone. He currently lives with spouse. Current activity regimen: none Patient barrier(s) to learning identified: Finance, Emotional and Transportation. BG Goals: [facility] Lab Goal <7 Pre-meal: 70-130 mg/dL PPG: <180 mg/dL Bedtime: 90-150 mg/dL A1c: <7.0% Recommended testing frequency: Before breakfast, before main meal and 2 hours after start of main meal Education content covered today: Basic Pattern Control BG Monitoring Insurance Rustam received verbal instructions and written materials tailored to his preferred method of learning. Literacy level assessed (as appropriate). Interventions, including teach back, used to verify understanding. SHARED PLAN: Per DM SO, increase Tresiba to 34 units daily. Per DM SO, increase Regular insulin to 2 units per CHO choice. SMBG tid as directed, record readings. Continue using sliding scale, as prescribed. RN Clinical Reviewer as needed for questions. Scheduled follow up on 02/28/18, bring BG readings. Rustam to call if symptoms of hypoglycemia or readings < 70 mg/dL. Rustam verbalized understanding and agreed with plan of care and follow up. documented in this encounter Plan of Treatment Not on filedocumented as of this encounter Visit Diagnoses Diagnosis [facility], active care coordinati on - Primary Type 2 diabetes mellitus with insulin th fan ([facility]C) documented in this encounter Care Teams Senior Stereo Compiler Team Lead Relationship Specialty Start Date End Date Gagandeep Hinojosa MD PCP - General 05/17/12 [address] [place] [address] Vane Zarate Psychiatrist Psychiatry 03/22/12 [facility] Psychotherapist 08/04/17 [facility] Integrated Circuit Layout Designer 09/13/17 documented as of this encounter
--- OUTSIDE RECORDS SUMMARY | 2022-02-12 12:04 | XMS_ITS | Encounter Summary ---
:1970 Author Organization [employer] Address [address] [place] [address] Care Team Providers Name Role Phone Gagandeep Hinojosa MD Primary Care Provider Reason for Visit Reason Comments [facility] Phone Visit Encounter Details Date Type Department Care Team Description 02/08/2018 Care Coord Phone Judy Luke R N [facility] Phone Visit Medicine 14[address] [facility] [address] [facility] [place] [address] [place] [address] [phone] Social History Tobacco Use Types Packs/Day Years [...] encounter Progress Notes Judy Pittman RN - 02/08/2018 10:29 AM CDT RN Limousine [employer] Hearse Upholsterer - Diabetes Follow-Up Current diabetes medication regimen: Metformin XR 1,000 mg BID Tresiba 30 units daily Regular 1.5 units per CHO choice, plus sliding scale CURRENT GLUCOSE PATTERNS: since 02/01/19 Before breakfast: 172 - 223 HS: 272 - 323 Hypoglycemia (previous two weeks): none Assessment/education: Edwin is calling to report he isn't feeling well because of illness, he thinksone of his grandchildren made him sick. He canceled his scheduled appt today and rescheduled for next week. I inquired about Rustam's BG, since we adjusted his insulin last week. He reports his readings have improved, but are still above goal. Rustam admitted that he isn't recording all his BG readings in his book, so he was only able to give me his fasting and post-prandial readings. I stressed the importance of checking his BG at least TID; fasting, before dinner, and 2 hours after dinner. I noted the onlyway Rustam can use his sliding scale is if he is testing before meals. I could tell Rustam wasn't feeling well, he was fairly confused about how he is taking his insulin. Ispent considerable time trying to figure out if he is taking his insulin correctly. In the end, I think taking 1.5 units per CHO choice and the sliding scale are difficult for him to manage. Therefore,I offered to simplify his regimen by increasing his Regular insulin to 2 units per CHO choice and holding off on using the sliding scale for now. We can review the sliding scale at his follow up appt next week. Rustam is adamant that his diet has not changed and denies eating any high CHO foods lately that would explain his hyperglycemia. He attributes the increase in his BG readings to a change in his insulinresistance secondary to his mental health medication. Rustam wrote down the instructions I provided today. Teach back method used to verify understanding. Shared plan: Per DM SO, increase Tresiba to 32 units daily. Per DM SO, increase Regular insulin 2 units per CHO choice. Hold sliding scale for now. SMBG tid as directed, record readings. Scheduled follow up on 02/15/18. Call if sx of hypoglycemia or glucose readings < 70 mg/dL. Rustam verbalized understanding and agreed with plan of care and follow up. documented in this encounter Plan of Treatment Not on filedocumented as of this encounter Visit Diagnoses Diagnosis Health nursing home, active care coordinati on - Primary Type 2 diabetes mellitus with insulin th fan (HRC) documented in this encounter Care Teams Ticket Maker Relationship Specialty Start Date End Date Gagandeep Hinojosa MD PCP - General 05/17/[address] [place] [address] [place] [address] Vane Zarate Psychiatrist Psychiatry 03/22/12 [facility] Psychotherapist 08/04/17 [facility] Assignment Desk Assistant 09/13/17 documented as of this encounter
--- OUTSIDE RECORDS SUMMARY | 2022-02-12 12:04 | XMS_ITS | Encounter Summary ---
:1970 Author Organization [facility] Address [address] [place] [address] Care Team Providers Name Role Phone Gagandeep Hinojosa MD Primary Care Provider Reason for Referral Consult/Transfer Care (Routine) - Closed Specialty Diagnoses / Procedures Referred By Contact Refer red To Contact Diagnoses Uncontrolled type 2 diabetes mellitus with hyperglycemia (HRC) Gagandeep Hinojosa MD [address] [facility] [place] [address] Referral ID Status Reason Start Date Expiration Date Visits Requ ested Visits Authorized [id number] Closed 07/27/2018 10/26/2019 1 1 Scheduling Instructions Your provider has recommended care coord ination. A care field marketing team leader will call you within two weeks. If you would like to s peak with someone sooner, please contact your primary care clinic. Reason for Visit Reason Comments MEDICATION CHECK update meds Encounter Details Date Type Department Care Team Description 07/27/2018 Office Visit Gagandeep Storm type 2 diabetes mellitus with hyperglycemia (HRC) (Primary Dx); Romario Rubio MD Bipolar I disorder (HR); [address] [place] [address] [facility] ASHD (ar teriosclerotic heart disease); 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 ([place]); Type 2 diabetes mellitus with complication, with long-term current use of insulin ([place]); Hyperlipidemia, unspecified hyperlipidemia type; Tobacco use dis order Social History Tobacco Use Types Packs/Day Years [...] Sign Reading Time Taken Comments Blood Pressure 146/90 07/27/2018 1:49 PM CDT Pulse 90 07/27/2018 1:49 PM CDT Temperature - - Respiratory Rate - - Oxygen Saturation - - Inhaled Oxygen Concentration - - Weight 89.4 kg (197 lb 1.6 oz) 07/27/2018 1:49 PM CDT Height 177.8 cm (5' 10) 07/27/2018 1:49 PM CDT Body Mass Index 28.28 07/27/2018 1:49 PM CDT documented in this encounter Progress Notes Gagandeep Hinojosa MD - 07/27/2018 1:45 PM CDT SUBJECTIVE: 48 y.o. male presents today for diabetes check. Again, patient has had difficulty affording his insulin due to excessive income. No smoking, has known heart disease Aspirin:Continues to take aspirin daily. No stomach [...] history. He quit smokeless tobacco use about 5 years ago. Eye exam: Patient is up-to-date with eye exam. Patient does have a history of retinopathy. No blurryor double vision Foot exam: Patient does have [...] topically daily. (Patient not taking: Reported on 07/27/2018) 500 mL 11 ??? aspirin 81 MG chewable tablet TAKE 1 TABLET BY MOUTH DAILY . 100 tablet 1 ??? blood glucose (ONE TOUCH ULTRA BLUE) test strip Use to test two times a day. Pharmacy dispense brand based on insurance. ICD-10: E11.29, E11.65, R80.9, Z79.4 200 Strip 3 ??? busPIRone (BUSPAR) 10 MG tablet Take 20 mg by mouth two times a day. 01/16/2018: Received from: External Pharmacy Received Sig: TAKE 1 TABLET BY MOUTH TWICE A DAY 2 ??? divalproex ER (DEPAKOTE ER) 250 MG 24 hour release tablet Take 250 mg by mouth three times a day. Indications: Manic Phase of Manic-Depression 900 Tab 3 ??? insulin degludec (TRESIBA FLEXTOUCH) 200 UNIT/ML SOPN Inject 30 Units subcutaneously daily. (Patient taking differently: Inject 34 Units subcutaneously daily.) 9 mL 6 ??? insulin pen needle (BD ULTRAFINE JANET) 32G X 4 MM Inject subcutaneously as needed for Blood Sugar >. 100 Each 11 ??? insulin regular (NOVOLIN R) 100 UNIT/ML injection Inject 1.5 units of insulin per 15 grams of carb before breakfast and dinner, at least 6 hours apart. Add Sliding Scale +1 unit/50 >150. (Patient taking differently: Inject 2 units of insulin per 15 grams of carb before breakfast and dinner, at least 6 hours apart. Add Sliding Scale +1 unit/50 >150.) 110 mL 0 ??? Insulin Syringe-Needle U-100 (INSULIN SYRINGE 31G X 16) 31G X 516 1 ML Inject 1 Each subcutaneously 4 times a day. 400 Each 3 ??? INVEGA 9 MG 24 hour release tablet Take 9 mg by mouth daily. 01/16/2018: Received from: External Pharmacy Received Sig: TAKE ONE TABLET BY MOUTH EVERY DAY 0 ??? lithium carbonate 300 MG capsule Take 300 mg by mouth daily. 01/16/2018: Received from: External Pharmacy Received Sig: TAKE ONE CAPSULE BY MOUTH EVERY DAY 0 ??? [place] Carbonate 600 MG capsule Take 600 mg by mouth daily at bedtime. 01/16/2018: Received from: External Pharmacy Received Sig: TAKE ONE CAPSULE BY MOUTH AT BEDTIME 0 ??? metFORMIN (GLUCOPHAGE) 500 MG tablet Take 2 Tablets by mouth two times a day with meals. 360 Tablet 0 ??? multivitamin (THERAGRAN) tablet Take 1 Tablet by mouth. 01/16/2018: Received from: [facility] Received Sig: Take 1 tablet by mouth [...] 3 mg two times a day. ??? amLODIPine (NORVASC) 10 MG tablet Take 10 mg by mouth daily. 01/16/2018: Received from: External Pharmacy Received Sig: TAKE ONE TABLET BY MOUTH EVERY DAY 0 ??? atorvastatin (LIPITOR) 80 MG tablet TAKE 1 TABLET BY MOUTH EVERY DAY (Patient not taking: Reported on 07/27/2018) 90 Tab 3 ??? LORazepam (ATIVAN) 1 MG tablet Take 1 mg by mouth two times a day. ??? metoprolol succinate (TOPROL XL) 50 MG 24 hour release tablet Take 1 Tab by mouth daily. 90 Tab 1 No facility-administered medications prior to visit. Adverse Drug Reactions: Allergies Allergen Reactions ??? Aripiprazole permanent shaking in left arm ??? Gabapentin Suicidal thoughts ??? Haloperidol Shock ??? Nitroglycerin Nausea And Vomiting ??? Thiothixene Other, see comments Muscle spasm ??? Wellbutrin [Bupropion] Anxiety ??? Ziprasidone Tardive dyskinsia OBJECTIVE: Vital Signs: BP (!) 146/90 (BP Location: Right Arm, BP Cuff Size: Adult Large) Pulse 90 Ht 5' 10 (1.778 m) Wt 197 lb 1.6 oz (89.4 kg) BMI 28.28 kg/m?? General: Alert, Oriented, NAD Head: Normocephalic. Eyes: PERRLA, full EOM. External exams normal. Nose: Patent, without deformity.Throat: Moist mucous membranes without lesions, erythema, or exudate. Heart: RR without murmurs, rubs, or gallops. Respiratory: Normal respiratory effort. Lungs are clear with good breath sounds. Abdomen: The abdomen was flat, soft and nontender without guarding rebound or masses. Positive bowelsounds. Feet: Exam of the foot is abnormal: Numbness on the plantar surface of both feet and Monofilament exam of the foot is abnormal: Labs: Lab Results Component Value Date HGBA1C 8.0 (H) 01/19/2018 UMICROALB 150.2 08/15/2017 CREATININE 0.70 (L) 01/19/2018 Lab Results Component Value Date CHOL 102 08/15/2017 CHOL 3.0 08/15/2017 HDL 34 (L) 08/15/2017 LDL 40 08/15/2017 TRI 140 08/15/2017 Lab Results Component Value Date ALT 17 04/29/2017 AST 21 04/29/2017 HGB A1C Date Value Ref Range Status 01/19/2018 8.0 (H) 4.0 - 5.6 % Final Glycosolated HGB A1C (POC) Date [...] % Final Lab Results Component Value Date HGB A1C 8.0 (H) 01/19/2018 Hemoglobin A1C, POCT 10.9 (H) 07/27/2018 No components found for: GLUF Lab Results Component Value Date K 5.4 (H) 01/26/2018 CHLORIDE 100 01/16/2018 BICARB 26 01/16/2018 ASSESSMENT: 1. Type 2 diabetes, uncontrolled 2. Hypertension, uncontrolled 3. Hyperlipidemia, controlled ICD-10-CM 1. Uncontrolled type 2 diabetes mellitus with hyperglycemia ([place]) E11.65 POCT Glycosylated Hemoglobin (HB A1C) CARE COORDINATION - PRIMARY CARE CONSULT 2. Bipolar I disorder ([place]) F31.9 3. ASHD (arteriosclerotic heart disease) ([place]) I25.10 atorvastatin (LIPITOR) 80 MG tablet 4. Hyperlipidemia LDL goal < 70 E78.5 atorvastatin (LIPITOR) 80 MG tablet 5. Essential hypertension ([place]) I10 amLODIPine (NORVASC) 10 MG tablet metoprolol succinate (TOPROL XL) 50 MG 24 hour release tablet PLAN: 1. Again will involve care coordination. If GLP-1 strategy would not be an option, then closer management will be necessary. Will not renew his insulin at this time, contingent on alternative medications. The patient was discharged ambulatory and in stable condition. Diabetes measures: A1c Due: 3 months Foot Exam: 3 months Eye exam: Pending Cholesterol: 3 months Electrolytes: 3 months UMAR: 3 months Aspirin: yes Tobacco: no Increased time utilized to discuss alternatives with care coordination and to go over barriers to care documented in this encounter Plan of Treatment Not on filedocumented as of this encounter Results (ABNORMAL) POCT Glycosylated Hemoglobin (HB A1C) (07/27/2018 2:02 PM CDT) [facility] gist Method Time Signature Hemoglobin A1C 10.9 (H) <=5.6 % 07/27/2018 [facility] (Rapid) 2:15 PM CDT LABORATORY Specimen Anatomical Collection Method / Collection Time Recei abimael Time (Source) Location / Volume Laterality Blood Venipuncture / 07/27/2018 2:02 07/27/2018 2:03 Unknown PM CDT PM CDT Narrative [facility] - 07/27/2018 2:15 PM CDT This Rapid A1c test is designed for charlotte toring patients with an established diagnosis of diabetes mellitus. This rapid method is not suitable to establish the initial diagnosis of diabetes mellitus. Performe d using Point of Care Instrumentation. Gagandeep Hinojosa MD LAB_1 Performing Organization Address City/State/ZIP Code Phon e Number [facility] [address] [facility] [place] [address] documented in this encounter Visit Diagnoses Diagnosis Uncontrolled type 2 diabetes mellitus wi th hyperglycemia (HRC) - Primary Bipolar I disorder (HRC) Bipolar I disorder, most recent episode (or current) unspecified ASHD (arteriosclerotic heart disease) ([facility]) Coronary atherosclerosis of unspecified type of vessel, [place] or graft Hyperlipidemia, unspecified hyperlipidem ia type (HRC) Essential hypertension (HRC) Unspecified essential hypertension 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, uncontrolled Diabetic polyneuropathy associated with type 2 diabetes mellitus (HRC) Type II diabetes mellitus with ophthalmi c manifestations, uncontrolled Type II or unspecified type diabetes jasen litus with ophthalmic manifestations, uncontrolled Background diabetic retinopathy (HRC) Type II or unspecified type diabetes jasen litus with ophthalmic manifestations, not stated as uncontrolled Nonproliferative diabetic retinopathy ([facility]) Type II or unspecified type diabetes jasen litus with ophthalmic manifestations, not stated as uncontrolled 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
--- OUTSIDE RECORDS SUMMARY | 2022-02-12 12:04 | XMS_ITS | Encounter Summary ---
:1970 Author Organization [email or web address] Address [address] [address] Care Team Providers Name Role Phone Gagandeep Hinojosa MD Primary Care Provider Reason for Referral (Routine) - Closed Specialty Diagnoses / Procedures Referred By Contact Refer red To Contact Diagnoses Chest pain, unspecified type Kailash Green DO Procedures Outreach Echocardiogram [address] [place] [address] Referral ID Status Reason Start Date Expiration Date Visits Requ ested Visits Authorized [id number] Closed 06/19/2018 09/18/2019 1 1 ET TECHNICIAN Encounter Details Date Type Department Care Team Description 06/02/2018 Hospital Encounter Heart & Vascular Chest pain, unspecified Center Echocardiogra m type (Primary Dx) [address] [place] [address] Social History Tobacco Use Types Packs/Day Years [...] tablet 1 0 08/13/2011 tablet DAILY . multivitamin Take 1 Tablet by 0 (THERAGRAN) [...] polyneuropathy, with long-term current use of insulin amLODIPine (NORVASC) Take 10 mg by mouth 0 201707/27/2018 10 MG tablet daily. ammonium lactate Apply topically daily. 500 mL 11 018 03/17/2020 (LAC-HYDRIN) 12 % lotion atorvastatin (LIPITOR) TAKE 1 TABLET BY MOUTH 90 Tab 3 0 07/29/2017 07/27/2018 80 MG EVERY DAY tabletIndications: ASHD (arteriosclerotic heart disease) ([facility]), Hyperlipidemia with target LDL less than 70 ([facility]) blood glucose (ONE Use to test two times 200 Strip 3 201704/01/2020 TOUCH ULTRA BLUE) test a day. Pharmacy stripIndications: dispense brand based Uncontrolled type 2 on insurance. ICD-10: diabetes mellitus with E11.29, E11.65, R80.9, microalbuminuria, with Z79.4 long-term current use of insulin busPIRone (BUSPAR) 10 Take 20 mg by mouth 2 12/1208/14/2019 MG tablet two times a day. divalproex ER Take 250 mg by mouth 900 Tab 3 05/17/2017 0 08/01/2018 (DEPAKOTE ER) 250 MG three times a day. 24 hour release Indications: Manic tabletIndications: Phase of Manic Phase of Bipolar Manic-Depression Mood Disorder insulin degludec Inject 30 Units 9 mL 6 01/31/201812/2018 (TRESIBA FLEXTOUCH) subcutaneously daily. 200 UNIT/ML SOPNIndications: Uncontrolled type 2 diabetes mellitus with complication, with long-term current use of insulin insulin pen needle (BD Inject subcutaneously 100 Each 11 12/18/2018 ULTRAFINE JANET) 32G X as needed for Blood 4 MM Sugar >. insulin regular Inject 1.5 units of 110 mL 0 01/26/2018 08/01/2018 (NOVOLIN R) 100 insulin per 15 grams UNIT/ML of carb before injectionIndications: breakfast and dinner, Uncontrolled type 2 at least 6 hours diabetes mellitus with apart. Add Sliding complication, with Scale +1 unit/50 >150. long-term current use of insulin Insulin Syringe-Needle Inject 1 Each 400 Each 3 07/26/2017 06/06/2020 U-100 (INSULIN SYRINGE subcutaneously 4 times 31G X 09/07) 31G X a day. 09/07 1 MLIndications: Uncontrolled type 2 diabetes mellitus without complication, with long-term current use of insulin INVEGA 9 MG 24 hour Take 9 mg by mouth 0 01/12/20 18 08/01/2018 release tablet daily. lithium carbonate 300 Take 300 mg by mouth 0 12/2408/28/2019 MG capsule daily. [place] Carbonate 600 Take 600 mg by mouth 0 12/2406/21/2019 MG capsule daily at bedtime. LORazepam (ATIVAN) 1 Take 1 mg by mouth two 0 07/27/2018 MG tabletIndications: times a day. Bipolar I disorder ([facility]) metFORMIN (GLUCOPHAGE) Take 2 Tabs by mouth 360 Tab 1 06/07/2018 500 MG two times a day with tabletIndications: meals. Uncontrolled type 2 diabetes mellitus without complication, without long-term current use of insulin metoprolol succinate Take 1 Tab by mouth 90 Tab 1 201707/27/2018 (TOPROL XL) 50 MG 24 daily. hour release tabletIndications: Essential hypertension ([facility]) ONETOUCH DELICA Use to test 4 times a 400 Each 3 7 04/01/2020 lancetsIndications: day. Uncontrolled type 2 diabetes mellitus with diabetic polyneuropathy, with long-term current use of insulin QUEtiapine (SEROQUEL) Take 200 mg by mouth 0 12/2408/14/2019 200 MG tablet daily at bedtime. documented as of this encounter Procedure Notes Mis Mcneil - 06/19/2018 9:51 AM CSTAssociated Order(s): OUTREACH ECHOCARDIOGRAM Results ECHO COMPLETE W CONTRAST ( (Order [id number]) Original Order Diagnosis: CHEST PAIN, CHEST PRESSURE, CHEST TIGHTENING Reading Provider(s) Marilu Charles MD PACs images are not viewable in [email or web address] Link. See text report below. 06/02/2018 1:30 PM - Marilu Charles MD Narrative & Impression DATE OF STUDY: 06/02/2018 PROCEDURE: 2D echo, spectral Doppler, color flow. Lumason contrast. INDICATION FOR STUDY: Chest pain, pressure, tightening. TECH INITIALS: AGE: 48 y.o. Ht: 178 Wt. 88 BSA: 2.06 m?? BP: 162/98 FINAL IMPRESSION: 1. Normal left ventricular size with mild concentric left ventricular hypertrophy. There is moderateglobal hypokinesis of the left ventricle with an estimated ejection fraction of 40%. There is grade 2 diastolic dysfunction. 2. The right ventricle is normal in size and function. 3. No significant valve pathology was identified. 4. Normal central venous pressure. 5. There was no pericardial effusion. INTERPRETATION: 2D, spectral, and color flow Doppler echocardiography were performed. The image and Doppler quality were adequate. Lumason opacifying agent was used to enhance endocardial definition. The patient was in normal sinus rhythm during this test with heart rates in the high 60s. CHAMBER SIZES AND FUNCTIONS: The left ventricle is normal in size. There is mild concentric left ventricular hypertrophy. There is moderate global hypokinesis of the left ventricle with an estimated ejection fraction of 40%. Grade 2 diastolic dysfunction is noted. The right ventricle is normal in sizeand function. Both atria are normal in size. There was no evidence for interatrial shunting by colorflow Doppler interrogation of the interatrial septum. VALVES AND RV PRESSURE: The aortic valve is tricuspid. There is mild aortic sclerosis with no evidence for aortic stenosis. The mitral valve is normal in appearance. There was no significant mitral regurgitation. The tricuspid valve is normal in structure and function. There was no significant tricuspid regurgitation. Given the absence of tricuspid regurgitation, an estimate of the pulmonary artery systolic pressure could not be made. The pulmonic valve is normal in structure and function with trace, physiologic, pulmonic regurgitation. GREAT VESSELS: All examined segments of the thoracic aorta are normal in size. The inferior vena cava is normal in size and collapsibility consistent with a normal central venous pressure. PERICARDIUM: There was no pericardial effusion. MEASUREMENTS AND CALCULATIONS 2-D Measurements and LV Function: RV - cm (d) Aortic Valve: Tricuspid Valve: LV 4.9 cm (d) AV VTI - m TV Mean PG - mmHg LV 4.2 cm (s) AV Vmax - m/s TR - +RAP IVS 1.1 cm (d) LVOT Vmax 0.5 m/s TAPSE 2.0 cm LVPW 1.4 cm (d) LVOT VTI 0.11 m TV S' - AO 3.3 cm (d) BOAZ (V) - cm?? Pulmonary Valve: ASCO 3.3 cm BOAZ (I) - cm?? PV Peak Velocity - m/s LA 3.9 cm (s) Max PG - mmHg PV Mean - mmHg LVOT 2.1 cm Mean PG - mmHg PADP - mmHg LA Vol 21 Dim Index - CO 1.3 RA - cm?? Diastology: Mitral Valve: E/A 0.9 MVA 3.5 cm?? E/e' 11 MVA (p1/2t) 63 msec DT 218 MV Mean PG - mmHg Marilu Charles M.D. Librarian Assistant [facility] / Lab and Collection ECHO COMPLETE W CONTRAST on 06/02/2018 Result History ECHO COMPLETE W CONTRAST on 06/02/2018 - Result Edited Hard Copy Result Report Open Hard Copy Results Report Removed from In Basket Done By Kailash Green DO on 06/03/2018 9:10 PM Patient Release Status: This result is not viewable by the patient. Patient Information Patient Name Timur Krishnamurthy ([id number]) Sex Male Room Bed Code Status 2214 ET TECHNICIAN documented in this encounter Plan of Treatment Not on filedocumented as of this encounter Procedures Procedure Name Priority Date/Time Associated Comments Diagnosis OUTREACH ECHOCARDIOGRAM Routine 06/02/2018 9:51 Chest pain, R esults for this AM BUDGET TECHNICIAN unspecified type procedure a re in the results section. documented in this encounter Results Outreach Echocardiogram (06/02/2018 9:51 AM BUDGET TECHNICIAN) Narrative PN POCT - 06/02/2018 9:51 AM BUDGET TECHNICIAN Mis Mcneil ? 06/19/2018 ??9:52 AM Results ECHO COMPLETE W CONTRAST ( [id number]) (Order [id number]) Original Order Diagnosis: CHEST PAIN, CH EST PRESSURE, CHEST TIGHTENING Reading Provider(s) Marilu Charles MD PACs images are not viewable in [email or web address] Link. See text report below. 06/02/2018 1:30 PM - Marilu Charles MD Narrative & Impression DATE OF STUDY: 06/02/2018 PROCEDURE: 2D echo, spectral Doppler, co brad flow. Lumason contrast. INDICATION FOR STUDY: Chest pain, pressu re, tightening. TECH INITIALS: HH AGE: 48 y.o. Ht: 178 Wt. 88 BSA: 2.06 m? ? BP: 162/98 FINAL IMPRESSION: 1. Normal left ventricular size with mil d concentric left ventricular hypertrophy. There is modera te global hypokinesis of the left ventricle with an estimated eje ction fraction of 40%. There is grade 2 diastolic dysfunction. 2. The right ventricle is normal in size and function. 3. No significant valve pathology was id entified. 4. Normal central venous pressure. 5. There was no pericardial effusion. INTERPRETATION: 2D, spectral, and color flow Doppler echocardiography were performed. The tj ge and Doppler quality were adequate. Lumason opacifying agent was used to enhance endocardial definition. The patient was in normal sinus rhythm during this test with heart rates in the high 60s. CHAMBER SIZES AND FUNCTIONS: The left ve ntricle is normal in size. There is mild concentric left vent ricular hypertrophy. There is moderate global hypokinesis of the left ventricle with an estimated ejection fraction of 40%. G rade 2 diastolic dysfunction is noted. The right ventricl e is normal in size and function. Both atria are normal in size. There was no evidence for interatrial shunting by color flow D oppler interrogation of the interatrial septum. VALVES AND RV PRESSURE: The aortic valve is tricuspid. There is mild aortic sclerosis with no evidence f or aortic stenosis. The mitral valve is normal in appearance. Th ere was no significant mitral regurgitation. The tricuspid valv e is normal in structure and function. There was no significant t ricuspid regurgitation. Given the absence of tricuspid regurgita tion, an estimate of the pulmonary artery systolic pressure could not be made. The pulmonic valve is normal in structure an d function with trace, physiologic, pulmonic regurgitation. GREAT VESSELS: All examined segments of the thoracic aorta are normal in size. The inferior vena cava i s normal in size and collapsibility consistent with a normal central venous pressure. PERICARDIUM: There was no pericardial ef fusion. MEASUREMENTS AND CALCULATIONS 2-D Measurements and LV Function: RV - cm (d) Aortic Valve: Tricuspid Valv e: LV 4.9 cm (d) AV VTI - m TV Mean PG - mm Hg LV 4.2 cm (s) AV Vmax - m/s TR - +RAP IVS 1.1 cm (d) LVOT Vmax 0.5 m/s TAPSE 2 .0 cm LVPW 1.4 cm (d) LVOT VTI 0.11 m TV S' - AO 3.3 cm (d) BOAZ (V) - cm?? Pulmonary V alve: ASCO 3.3 cm BOAZ (I) - cm?? PV Peak Veloc ity - m/s LA 3.9 cm (s) Max PG - mmHg PV Mean - mm Hg LVOT 2.1 cm Mean PG - mmHg PADP - mmHg LA Vol 21 Dim Index - CO 1.3 RA - cm?? Diastology: Mitral Valve: E/A 0.9 MVA 3.5 cm?? E/e' 11 MVA (p1/2t) 63 msec DT 218 MV Mean PG - mmHg Marilu Charles M.D. Librarian Assistant ANIYAH/[facility] / ?? Lab and Collection ECHO COMPLETE W CONTRAST on 06/02/2018 Result History ECHO COMPLETE W CONTRAST on 06/02/2018 - R esult Edited Hard Copy Result Report Open Hard Copy Results Report Removed from In Basket Done By Kailash Green AlvinDO batool on 06/03/2018 9:1 0 PM Patient Release Status: This result is [facility] Patient Information Patient Name Timur Krishnamurthy ([id number]) Sex Male Room Bed Code Status 2214 ?? Procedure Note Mis Mcneil - 06/19/2018 9:51 AM BUDGET TECHNICIAN Results ECHO COMPLETE W CONTRAST ( [id number]) (Order [id number]) Original Order Diagnosis: CHEST PAIN, CH EST PRESSURE, CHEST TIGHTENING Reading Provider(s) Marilu Charles MD PACs images are not viewable in [email or web address] Link. See text report below. 06/02/2018 1:30 PM - Marilu Charles MD Narrative & Impression DATE OF STUDY: 06/02/2018 PROCEDURE: 2D echo, spectral Doppler, co brad flow. Lumason contrast. INDICATION FOR STUDY: Chest pain, pressu re, tightening. TECH INITIALS: HH AGE: 48 y.o. Ht: 178 Wt. 88 BSA: 2.06 m? ? BP: 162/98 FINAL IMPRESSION: 1. Normal left ventricular size with mil d concentric left ventricular hypertrophy. There is moderate global hypokinesis of the left ventricle with an estimated ejection fraction of 40%. There is grade 2 diastolic dysfunction. 2. The right ventricle is normal in size and function. 3. No significant valve pathology was id entified. 4. Normal central venous pressure. 5. There was no pericardial effusion. INTERPRETATION: 2D, spectral, and color flow Doppler echocardiography were performed. The image and Doppler quality were adequate. Lumason opacifying agent was used to enhance endocardial definition. The patient was in normal sinus rhythm during this test wit h heart rates in the high 60s. CHAMBER SIZES AND FUNCTIONS: The left ve ntricle is normal in size. There is mild concentric left ventricular hypertrophy. There is moderate global hypokinesis of the left ventricle with an estimated ejection fraction of 40%. Grade 2 diastolic dysfunction is no sarbjit. The right ventricle is normal in size and function. Both atria are normal in size. There was no evidence for interatrial shunting by color flow Doppler interrogation of the interatrial septum. VALVES AND RV PRESSURE: The aortic valve is tricuspid. There is mild aortic sclerosis with no evidence for aortic stenosis. The mitral valve is normal in appearance. There was no significant mitral regurgitation. The tricuspid valve is normal in structure a nd function. There was no significant tricuspid regurgitation. Given the absence of tricuspid regurgitation, an estimate of the pulmonary artery systolic pressure could not be made. The pulmonic valve is tyrone l in structure and function with trace, physiologic, pulmonic regurgitation. GREAT VESSELS: All examined segments of the thoracic aorta are normal in size. The inferior vena cava is normal in size and collapsibility consistent with a normal central venous pressure. PERICARDIUM: There was no pericardial ef fusion. MEASUREMENTS AND CALCULATIONS 2-D Measurements and LV Function: RV - cm (d) Aortic Valve: Tricuspid Valv e: LV 4.9 cm (d) AV VTI - m TV Mean PG - mm Hg LV 4.2 cm (s) AV Vmax - m/s TR - +RAP IVS 1.1 cm (d) LVOT Vmax 0.5 m/s TAPSE 2 .0 cm LVPW 1.4 cm (d) LVOT VTI 0.11 m TV S' - AO 3.3 cm (d) BOAZ (V) - cm?? Pulmonary V alve: ASCO 3.3 cm BOAZ (I) - cm?? PV Peak Veloc ity - m/s LA 3.9 cm (s) Max PG - mmHg PV Mean - mm Hg LVOT 2.1 cm Mean PG - mmHg PADP - mmHg LA Vol 21 Dim Index - CO 1.3 RA - cm?? Diastology: Mitral Valve: E/A 0.9 MVA 3.5 cm?? E/e' 11 MVA (p1/2t) 63 msec DT 218 MV Mean PG - mmHg Marilu Charles M.D. Librarian Assistant ANIYAH/[facility] / Lab and Collection ECHO COMPLETE W CONTRAST on 06/02/2018 Result History ECHO COMPLETE W CONTRAST on 06/02/2018 - R esult Edited Hard Copy Result Report Open Hard Copy Results Report Removed from In Basket Done By Kailash Green DO on 06/03/2018 9:1 0 PM Patient Release Status: This result is not viewable by the [facility]. Patient Information Patient Name Timur Krishnamurthy ([id number]) Sex Male Room Bed Code Status 2214 Kailash Green DO PN ECHO ORDERABLES Performing Organization Address City/State/ZIP Code Phon e Number POCT PN POCT documented in this encounter Visit Diagnoses Diagnosis Chest pain, unspecified type - Primary documented in this encounter Care Teams Stage Settings Painter Relationship Specialty Start Date End Date Gagandeep Hinojosa MD PCP - General 05/17/12 14[address] [facility] [place] [address] [place] Psychiatrist Psychiatry 03/22/12 [facility] Psychotherapist 08/04/17 [facility] Creche Attendant 09/13/17 documented as of this encounter
--- OUTSIDE RECORDS SUMMARY | 2022-02-12 12:04 | XMS_ITS | Encounter Summary ---
:1970 Author Organization [facility] Address [address] [place] [address] Care Team Providers Name Role Phone Gagandeep Hinojosa MD Primary Care Provider Encounter Details Date Type Department Care Team Description 11/28/2018 Lab Visit [facility] Encounter for long-term [address] (current) use of other [place] [address] medications (Primary Dx) [phone] Social History Tobacco Use Types Packs/Day Years [...] Name Priority Date/Time Associated Diagnosis Comme nts CBC AND DIFFERENTIAL Routine 11/28/2018 11:01 Encounter for Re sults for this PANEL AM CDT long-term (current) procedur e are in use of other the results medications section. CARNITINE FREE AND Routine 11/28/2018 11:01 Encounter for Resu lts for this TOTAL AM CDT long-term (current) procedur e are in use of other the results medications section. T3, TOTAL Routine 11/28/2018 11:01 Encounter for Results fo r this AM CDT long-term (current) procedur e are in use of other the results medications section. CREATININE / GFR Routine 11/28/2018 11:01 Encounter for Result s for this AM CDT long-term (current) procedur e are in use of other the results medications section. COMPLETE BLOOD Routine 11/28/2018 11:01 Encounter for Results for this COUNT-W/DIFF AM CDT long-term (current) procedur e are in use of other the results medications section. TSH, SENSITIVE Routine 11/28/2018 11:01 Encounter for Results for this AM CDT long-term (current) procedur e are in use of other the results medications section. T4, TOTAL Routine 11/28/2018 11:01 Encounter for Results fo r this AM CDT long-term (current) procedur e are in use of other the results medications section. HGB A1C Routine 11/28/2018 11:01 Encounter for Results fo r this AM CDT long-term (current) procedur e are in use of other the results medications section. SODIUM Routine 11/28/2018 11:01 Encounter for Results fo r this AM CDT long-term (current) procedur e are in use of other the results medications section. POTASSIUM Routine 11/28/2018 11:01 Encounter for Results fo r this AM CDT long-term (current) procedur e are in use of other the results medications section. CK, TOTAL Routine 11/28/2018 11:01 Encounter for Results fo r this AM CDT long-term (current) procedur e are in use of other the results medications section. documented in this encounter Results (ABNORMAL) Complete Blood Count-W/Diff (11/28/2018 11:01 AM CDT) [facility] Method Time Signature WBC 8.4 3.5 - 10.5 11/28/2018 [facility] x10(9)/L 11:07 AM CDT LABORATORY RBC 4.90 4.32 - 11/28/2018 [place] 5.72 11:07 AM CDT LABORATORY x10(12)/L Hemoglobin 14.7 13.5 - 11/28/2018 [place] 17.5 g/dL 11:07 AM CDT LABORATORY HCT 40.2 38.8 - 11/28/2018 [place] 50.0 % 11:07 AM CDT LABORATORY MCV 82.0 80.0 - 11/28/2018 [place] 100.0 fL 11:07 AM CDT LABORATORY MCH 30.0 27.6 - 11/28/2018 [facility] [place] 33.3 pg 11:07 AM CDT LABORATORY MCHC 36.6 (H) 31.5 - 11/28/2018 [facility] [place] 35.2 g/dL 11:07 AM CDT LABORATORY RDW 12.1 11.9 - 11/28/2018 [place] 15.5 % 11:07 AM CDT LABORATORY Platelets 253 150 - 450 11/28/2018 [place] x10(9)/L 11:07 AM CDT LABORATORY Neutrophil 5.0 1.7 - 7.0 11/28/2018 [place] Absolute 10(9)/L 11:07 AM CDT LABORATORY Lymphocyte 2.5 1.0 - 4.8 11/28/2018 [place] Absolute 10(9)/L 11:07 AM CDT LABORATORY Monocytes 0.6 0.2 - 0.9 11/28/2018 [place] Absolute 10(9)/L 11:07 AM CDT LABORATORY Eosinophil 0.2 0.0 - 0.5 11/28/2018 [place] Absolute 10(9)/L 11:07 AM CDT LABORATORY Basophil 0.0 0.0 - 0.3 11/28/2018 [facility] [place] Absolute 10(9)/L 11:07 AM CDT LABORATORY Specimen Anatomical Collection Method / Collection Time Recei abimael Time (Source) Location / Volume Laterality Blood Venipuncture / 11/28/2018 11:01 9 Unknown AM CDT 11:01 AM CDT Vane Zarate MD LAB_1 Performing Organization Address City/State/ZIP Code Phon e Number [facility] [address] [place] [address] [phone] (ABNORMAL) Carnitine Free And Total (11/28/2018 11:01 AM CDT) P [facility] Signature Carnitine 0.6 0.1 - 1.0 11/30/2018 [facility] Kristen/Free 8:38 AM CDT LABORATORIES Ratio Comment: Performed by [facility], [address] [facility] [address] [email or web address], Bull Sultana MD, Lab. Director Carnitine Esterified 11 5 - 29 umol/L 11/30/2018 8:38 AM [employer] CDT Carnitine, Free 18 (L) 25 - 60 umol/L 11/30/2018 8:38 AM [employer] CDT Carnitine, Total 29 (L) 34 - 86 umol/L 11/30/2018 8:38 AM [employer] CDT Comment: Test developed and characteristics deter mined by [facility]. See Compliance Statement B : [email or web address] Specimen Anatomical Collection Method / Collection Time Recei abimael Time (Source) Location / Volume Laterality Blood Venipuncture / 11/28/2018 11: 9 Unknown AM CDT 11:01 AM CDT Vane Zarate MD LAB_1 Performing Organization Address City/State/ZIP Code Phon e Number [facility] [address] [place], [place] [phone] CK, Total (11/28/2018 11:01 AM CDT) P athologist Signature CK, Total 51 30 - 200 11/28/2018 [place] U/L 3:19 PM CDT LABORATORY Specimen Anatomical Collection Method / Collection Time Recei abimael Time (Source) Location / Volume Laterality Blood Venipuncture / 11/28/2018 11: 9 Unknown AM CDT 11:01 AM CDT Vane Zarate MD LAB_1 Performing Organization Address City/State/ZIP Code Phon e Number [facility] [address] [place] [address] (ABNORMAL) Hgb A1C (11/28/2018 11:01 AM CDT) Patholo gist Method Time Signature Hemoglobin A1C 10.6 (H) <=5.6 % 11/28/2018 [facility] 5:00 PM CDT LABORATORY Specimen Anatomical Collection Method / Collection Time Recei abimael Time (Source) Location / Volume Laterality Blood Venipuncture / 11/28/2018 11:01 9 Unknown AM CDT 11:01 AM CDT Narrative [facility] - 11/28/2018 5:00 P M CDT For patients not previously diagnosed with diabetes: 5.7-6.4%: Increased risk for diabetes 6.5% and greater: Diagnostic for diabete s For patients diagnosed with diabetes: <8.0%: Goal of therapy for ages 18-75 Clinicians may recommend a higher or low er goal for specific individuals. Vane Zarate MD LAB_1 Performing Organization Address City/State/ZIP Code Phon e Number [facility] [address] [place] [address] Potassium (11/28/2018 11:01 AM CDT) P athologist Signature Potassium 5.0 3.5 - 5.1 11/28/2018 [facility] mmol/L 3:19 PM CDT LABORATORY Specimen Anatomical Collection Method / Collection Time Recei abimael Time (Source) Location / Volume Laterality Blood Venipuncture / 11/28/2018 11:01 9 Unknown AM CDT 11:01 AM CDT Vane Zarate MD LAB_1 Performing Organization Address [facility] Code Phon e Number [facility] [address] [place] [address] (ABNORMAL) Sodium (11/28/2018 11:01 AM CDT) P athologist Signature Sodium 135 (L) 136 - 145 11/28/2018 [facility] mmol/L 3:19 PM CDT LABORATORY Specimen Anatomical Collection Method / Collection Time Recei abimael Time (Source) Location / Volume Laterality Blood Venipuncture / 11/28/2018 11:01 9 Unknown AM CDT 11:01 AM CDT Vane Zarate MD LAB_1 Performing Organization Address [facility] Phon e Number [facility] [address] [place] [address] Creatinine / GFR (11/28/2018 11:01 AM CDT) P [facility]ologist Signature Creatinine 0.80 0.73 - 11/28/2018 [facility] 1.18 mg/dL 3:19 PM CDT LABORATORY GFR, Estimated >60 >60 11/28/2018 [facility] mL/min/1.7 3:19 PM CDT LABORATORY 3m2 GFR, Est If >60 >60 11/28/2018 [facility] mL/min/1.7 3:19 PM CDT LABORATORY Gabonese 3m2 Specimen Anatomical Collection Method / Collection Time Recei abimael Time (Source) Location / Volume Laterality Blood Venipuncture / 11/28/2018 11: 9 Unknown AM CDT 11:01 AM CDT Vane Zarate MD LAB_1 Performing Organization Address City/[facility]/ZIP Code Phon e Number [facility] [address] [place] [address] T4, Total (11/28/2018 11:01 AM CDT) P athologist Signature T4, Total 6.5 5.0 - 11.0 11/28/2018 [facility] mcg/dL 7:37 PM CDT [facility] Specimen Anatomical Collection Method / Collection Time Recei abimael Time (Source) Location / Volume Laterality Blood Venipuncture / 11/28/2018 11: 9 Unknown AM CDT 11:01 AM CDT Vane Zarate MD LAB_1 Performing Organization Address City/[facility]/ZIP Code Phon e Number [address] [address] (ABNORMAL) T3, Total (11/28/2018 11:01 AM CDT) Analysis Performed At Patho logist Time Signature Triiodothyroni 75 (L) 80 - 200 11/29/2018 [facility] ne, Total ng/dL 11:38 AM CDT LABORATORIES (Total T3) Comment: REFERENCE INTERVAL: Triiodothyronine, To ora (Total T3) Access complete set of age- and/or gende r-specific reference intervals for this test in the [facility] Test Directory ([email or web address]). Performed by [facility], [address] [place] [address] [email or web address], Bull Sultana MD, Lab. Director Specimen Anatomical Collection Method / Collection Time Recei abimael Time (Source) Location / Volume Laterality Blood Venipuncture / 11/28/2018 11:01 9 Unknown AM CDT 11:01 AM CDT Vane Zarate MD LAB_1 Performing Organization Address City/State/ZIP Code Phon e Number [facility] [[email or web address] LABORATORIES [address] [place], [place] [phone] TSH (11/28/2018 11:01 AM CDT) P athologist Signature TSH, Sensitive 0.85 0.30 - 11/28/2018 [facility] 4.50 4:19 PM CDT LABORATORY uIU/mL Specimen Anatomical Collection Method / Collection Time Recei abimael Time (Source) Location / Volume Laterality Blood Venipuncture / 11/28/2018 11:01 9 Unknown AM CDT 11:01 AM CDT Vane Zarate MD LAB_1 Performing Organization Address City/State/ZIP Code Phon e Number [facility] [address] [place] [address] documented in this encounter Visit Diagnoses Diagnosis Encounter for long-term (current) use of other medications - Primary documented in this encounter Care Teams Marketing Rep Relationship Specialty Start Date End Date Gagandeep Hinojosa MD PCP - General 05/17/12 [address] [place], [place] [address] Vane Zarate Psychiatrist Psychiatry 03/22/12 [facility] Health Psychotherapist 08/04/17 [facility] Trolley Car Overhauler 09/13/17 documented as of this encounter
--- OUTSIDE RECORDS SUMMARY | 2022-02-12 12:04 | XMS_ITS | Encounter Summary ---
:1970 Author Organization [email or web address] Address [address], [place] [address] Care Team Providers Name Role Phone Gagandeep Hinojosa MD Primary Care Provider Reason for Visit Reason Comments [facility] Face To Face Visit Encounter Details Date Type Department Care Team Description 01/26/2018 Care Coord Deborah Odom, [facility] Fa ce To Face Office Visit Medicine [facility] Visit [address] [facility] [place] [address] [place] [address] [phone] Social History Tobacco Use Types Packs/Day Years Used Date Smoking Tobacco: Former Cigarettes 1 25 Smokeless Tobacco: Former Qu it: 10/25/2012 Comments: Smoking History Packs/day: Alcohol Use Standard Drinks/Week Comments No 0 (1 standard drink = 0.6 oz pure Alcoho lic Drinks/day: Amount:0; alcohol) Freq:Never; Sex Assigned at Date Recorded Not on file documented as of this encounter Progress Notes Deborah Rodrigues, [facility] - 01/26/2018 10:00 AM CDT Care Coordination Visit Pt: Timur Krishnamurthy Referred by: Gagandeep Hinojosa MD Reason for visit: Care Coordination Timur was seen alone. Discussion/actions: Met with Rustam for a scheduled [facility] appointment. RN Survey Researcher, Judy Pittman, was present for the appointment. Judy addressed Rustam's physical health and helped manage his diabetes. Rustam reports that he has been doing pretty well, and his mood is surprisingly good. He continues to work on stabilizing his medication, and his psychiatrist continues to lower his Depakote, as he will stay on lithium. Rustam stated that he is taking all of his medications as prescribed, seeing his therapist regularly, and has not had any thoughts of suicide. Rustam also has a MH CM appointment setup soon. He will be starting to attend a Tuesday group through [facility], as it is not affordable for him to attend an IOP program. Rustam is also thinking about the possibility of attending an adult day program, if his MH CM can get funding through the [facility]. Rustam stated that he has not come back to work, but has not told his employer that he is not going to. I encouraged him again to contact his employer, so they are aware of his long-term plans. Rustam agreed to do that this week, so they are aware. Rustam also stated that things at home are going okay, we just need to keep things separate right now. Rustam stated that finances still continued to be difficult for them to manage, but is just not something I can address right now. Rustam is going to focus on his mental health, so he can be stable. Rustam also stated that he continues to not smoke, whichshe is very proud of. He denied any other concerns at this time and scheduled a follow-up SW/RN CareCoordination appointment next week. This note was produced using voice recognition [...] bills. ?Goal: in process ? SHARED PLAN: -SW/RN Care Coordination appointment 02/08 at 11:00. -Psychiatry appointment 01/16 at 6:00. - CM appointment regularly. -Therapy appointment weekly. ? Pt verbalized understanding and agreed with plan??of care and follow up. documented in this encounter Plan of Treatment Not on filedocumented as of this encounter Visit Diagnoses Diagnosis Health usp, active care coordinati on - Primary documented in this encounter Care Teams Marketing Project Lead Relationship Specialty Start Date End Date Gagandeep Hinojosa MD PCP - General 05/17/12 [address] [place] [address] Vane Zarate Psychiatrist Psychiatry 03/22/12 [facility] Health Psychotherapist 08/04/17 [facility] Data Coordinator 09/13/17 documented as of this encounter
--- OUTSIDE RECORDS SUMMARY | 2022-02-12 12:04 | XMS_ITS | Encounter Summary ---
:1970 Author Organization [employer] Address [address] [place] [address] Care Team Providers Name Role Phone Gagandeep Hinojosa MD Primary Care Provider Reason for Visit Reason Comments HYPERGLYCEMIA Encounter Details Date Type Department Care Team Description 12/09/2018 Nurse Triage [facility] Gagandeep Hinojosa MD [facility]PER[facility]CEMIA [id number] [place] [address] [phone] Social History Tobacco Use Types Packs/Day Years [...] encounter Nursing Notes Verito Sanford RN - 12/09/2018 2:08 PM CDT Reason for Disposition ??? Acting confused (e.g., disoriented, slurred speech) Protocols used: DIABETES - HIGH BLOOD [id number] Pt is calling to report that his BS has been running high for the past few weeks, currently it is around 400 and he would like this noted in his chart. He declines triage. He report his has commended on his slurred speech over the past few days, slight slur is heard today. States he feels fuzzyheaded, but not severe, feels he can drive. Denies CP, SOB, rapid breathing, or vomiting. Pt reportshe had a meal that was heavy on carbs along with a few cookies so he rechecked his BS to find it high. His fasting BS this am was around 215. Difficult getting consistent information from pt regarding his current situation. Per chart pt is to take Novolin R with breakfast and dinner, he changes his information multiple times reporting this is his late dinner insulin dosing, his early supper or dinner, and a late breakfast. Unable to clarify. Reports he took 15 units of Novolin R, then reports is was12 units. States his is near by, but not home. He gives verbal consent for nursing to contact mo s Rosetta regarding his current situation and medical care. Advised he hang up and call 911 and he declines this, states he is 1 mile from the hospital and he would rather just go in, but wants to talk with his first. Pt called back to this nurse within a few minutes. He states his is coming home now and will drive him to [facility] now. PNNL called pts to confirm this and she agrees, states she is arriving home now. Reviewed worsening s&s and when to call. Patient & spouse verbalizes understanding of instructions/plan. Problem list, allergies, and current meds reviewed. *Of note, pt reports he is aware he is overdue for his DM check with PCP and will call back to schedule this. documented in this encounter Plan of Treatment Not on filedocumented as of this encounter Visit Diagnoses Not on filedocumented in this encounter Care Teams Courtroom Reporter Relationship Specialty Start Date End Date Gagandeep Hinojosa MD PCP - General 05/17/12 [facility] [place] [address] Vane Zarate Psychiatrist Psychiatry 03/22/12 [facility] Health Psychotherapist 08/04/17 [facility] Cleaning Manager 09/13/17 documented as of this encounter
--- OUTSIDE RECORDS SUMMARY | 2022-02-12 12:04 | XMS_ITS | Encounter Summary ---
:1970 Author Organization [email or web address] Address [address] [place] [address] Care Team Providers Name Role Phone Gagandeep Hinojosa MD Primary Care Provider Reason for Visit Reason Comments Patient Calling Back insulin regular (NOVOLIN R) 100 UNIT/ML injection Medication Questions Encounter Details Date Type Department Care Team Description 08/07/2018 Telephone [facility] Gagandeep Hinojosa, Anastasia nt Calling Back Medicine MD (insulin regular [address] (NOVOLIN R) 100 UNIT/[place] [address] [place] [address] injection); Medication [phone] (Wo rk) Questions Social History Tobacco Use Types Packs/Day Years Used Date Smoking Tobacco: Former Cigarettes 1 25 Smokeless Tobacco: Former Qu it: 10/25/2012 Comments: Smoking History Packs/day: Alcohol Use Standard Drinks/Week Comments No 0 (1 standard drink = 0.6 oz pure Alcoho lic Drinks/day: Amount:0; alcohol) Freq:Never; Sex Assigned at Date Recorded Not on file documented as of this encounter Nursing Notes Gloria Quijano PA-C - 08/09/2018 3:34 PM CDT Reviewed message. Added the max daily dose and refaxed rx to pharmacy. Mendy Nieves RN - 08/09/2018 3:07 PM CDT Routed to DOD: Information per physician request: please contact patient. Document in medication list his current dose of regular insulin and route results back to me 08/08/18 Dr. Hinojosa Clinician Action: Input needed regarding Medication-see 08/07/18 pharmacy request regarding Rx Novolin R. Clinician Next Step: Route to [place] Nurse pool to follow up Specific Request(s): 1. Return call from patient reporting current insulin doses: -Novolin R 2 units per 15 grams CHO with breakfast and dinner plus sliding scale/correction factor 1unit/50> 150. Patient states max dose is 30 units daily. -Tresiba 32 units once daily Return call from patient, patient called to report current insulin doses per Dr. Hinojosa's request.(noted medication list is currently correct per patient report) Geena Woodard - 08/09/2018 3:04 PM CDT Miscellaneous Questions & FYI's - FYI (DO NOT use for billing and coding concerns see BEST care reporting system) What is your comment or FYI? Pt calling back. Transferred to triage. If there are questions regarding your request, is it okay to leave a detailed message on your voicemail? No (Advise caller that the PN call back number will end with [phone] or unknown) Please route to: Appropriate pool per call routing grid Rebeka Zamora LPN - 08/09/2018 1:29 PM CDT Called and voicemail is full. Called and asked her to have pt call us to clarify dose of insulin. [place] [phone] if before 3pm or then triage Gagandeep Hinojosa MD - 08/08/2018 10:07 PM CDT Please contact patient. Document in medication list his current dose of regular insulin and route results back to me Dominique Hill - 08/07/2018 4:27 PM CDT Clinician Action: Input needed regarding Medication Clinician Next Step: Route to Brake Operator pool Specific Request(s): 1. See below information regarding medication Evelin Stockton - 08/07/2018 3:32 PM CDT Further assistance needed to complete refill request Reason: Clarification for medication regimen needed. Pharmacy asking for MORE specific directions, for insurance billing purposes. Please provide Max daily dose. Next Steps: Triage to complete refill as appropriate. CURRENT PRESCRIPTION: Drug Name/Strength: insulin regular (NOVOLIN R) 100 UNIT/ML injection Sig: Inject 2 units of insulin per 15 grams of carb before breakfast and dinner, at least 6 hours apart. Add Sliding Scale +1 unit/50 >150 Kenneth PH: [phone] documented in this encounter Plan of Treatment Not on filedocumented as of this encounter Visit Diagnoses Diagnosis Uncontrolled type 2 diabetes mellitus wi th complication, with long-term current use of insulin documented in this encounter Care Teams Tip Mender Relationship Specialty Start Date End Date Gagandeep Hinojosa MD PCP - General 05/17/12 [address] [facility] [place] [address] Vane Zarate Psychiatrist Psychiatry 03/22/12 [facility] Psychotherapist 08/04/17 [facility] Foreign Diplomat 09/13/17 documented as of this encounter
--- OUTSIDE RECORDS SUMMARY | 2022-02-12 12:04 | XMS_ITS | Encounter Summary ---
:1970 Author Organization [facility] Address [address] [place] [address] Care Team Providers Name Role Phone Gagandeep Hinojosa MD Primary Care Provider Reason for Visit Reason Comments Lab Questions Encounter Details Date Type Department Care Team Description 12/11/2018 Telephone [facility] Gagandeep Hinojosa MD Lab Questions [address] [facility] . [address] [facility] [place] [address] [place] [address] [phone] (Wo rk) Social History Tobacco Use Types [...] encounter Nursing Notes Lisa Ruvalcaba RN - 12/11/2018 11:51 AM CDT Patient requesting to know if he needed to have his A1c level rechecked before upcoming appt on 12/14/18. Advised that it was just checked on 11/28/18 and that we typically check every 3 months. Patient verbalized understanding. No further questions. Crow Oliver - 12/11/2018 11:28 AM CDT Test Results (Advise caller/patient can view test results in [employer], if enrolled) What test are you calling about? A1C from 11/28/18. Primary Middleware Solutions Architect: Gagandeep Hinojosa MD Who ordered the test? (include first & last name) Gagandeep Hinojosa MD When and where was the test done? 11/28/18 - [facility] Additional comments (related to the above concern): Pt is wondering if his needs his A1C done again for upcoming appointment If a prescription is needed, patient would [...] on filedocumented in this encounter Care Teams Stone Setter [employer] Relationship Specialty Start Date End Date Gagandeep Hinojosa MD PCP - General 05/17/12 [address] [facility] [place] [address] Vane Zarate Psychiatrsamantha Psychiatry 03/22/12 [facility] Psychotherapist 08/04/17 [facility] Paper Carrier 09/13/17 documented as of this encounter
--- OUTSIDE RECORDS SUMMARY | 2022-02-12 12:04 | XMS_ITS | Encounter Summary ---
:1970 Author Organization [employer] Address [address] [place] [address] Care Team Providers Name Role Phone Gagandeep Hinojosa MD Primary Care Provider Reason for Visit Reason Comments Mental Health Concerns Encounter Details Date Type Department Care Team Description 11/03/2018 Care Coord [facility] Deborah Rodrigues, Mental Health Phone Medicine [facility] Concerns [address] [facility]. [facility] [place] [id number] [place] [address] [phone] Social History Tobacco Use Types Packs/Day Years [...] encounter Progress Notes Deborah Rodrigues LICSW - 11/03/2018 3:00 PM CDT Received a phone call back from Rustam, who stated that everything is going really good for me. He declined setting up a care coordination or PCP appointment at this time. He agreed to a phone check-in next month. Deborah Rodrigues LICSW - 11/03/2018 12:16 PM CDT I received email notification for HHR with the following information: ?? Patient: Timur Krishnamurthy Admitted: 10/15/18 Discharged:??10/30/18 Hospital:??[facility] Diagnosis:??Bipolar I Disposition:??Home, self care ?? Needs [facility] follow-up with PCP and care coordination. Have reached out several times, but have not gotten a return call. documented in this encounter Plan of Treatment Not on filedocumented as of this encounter Visit Diagnoses Diagnosis Health residential, active care coordinati on - Primary documented in this encounter Care Teams Rotary Bar Operator Relationship Specialty Start Date End Date Gagandeep Hinojosa MD PCP - General 05/17/12 [facility] [place] [address] Vane Zarate Psychiatrist Psychiatry 03/22/12 [facility] Psychotherapist 08/04/17 [facility] Material Damage Adjuster 09/13/17 documented as of this encounter
--- OUTSIDE RECORDS SUMMARY | 2022-02-12 12:04 | XMS_ITS | Encounter Summary ---
:1970 Author Organization [employer] Address [address] [place] [address] Care Team Providers Name Role Phone Gagandeep Hinojosa MD Primary Care Provider Encounter Details Date Type Department Care Team Description 01/26/2018 Lab Visit [facility] Hyperkalemia [address] [facility] . [place], [place] [id number] Social History Tobacco Use Types Packs/Day Years [...] Name Priority Date/Time Associated Diagnosis Comme nts POTASSIUM Routine 01/26/2018 9:56 AM Hyperkalemia Results f or this CDT procedure are i n the results section . documented in this encounter Results (ABNORMAL) Potassium (01/26/2018 9:56 AM CDT) P athologist Signature Potassium 5.4 (H) 3.5 - 5.2 PN SOFT mmol/L Specimen Anatomical Collection Method Collection Time Receive d Time (Source) Location / / Volume Laterality 01/26/2018 9:56 AM 8 CDT 11:23 AM CDT Narrative PN SOFT - 01/26/2018 11:38 AM CDT Performed at [facility], [address] [place] [address] CLIA number [id number] Gagandeep Hinojosa MD LAB_1 Performing Organization Address City/State/ZIP Code Phon e Number PN SOFT [address] [place] [address] documented in this encounter Visit Diagnoses Diagnosis Hyperkalemia Hyperpotassemia documented in this encounter Care Teams Kennel Aide Relationship Specialty Start Date End Date Gagandeep Hinojosa MD PCP - General 05/17/12 14[address] [facility] [place] [address] Vane Zarate Psychiatrist Psychiatry 03/22/12 [facility] Mental Health Psychotherapist 08/04/17 [facility] Manager Digital Ad Operations 09/13/17 documented as of this encounter
--- OUTSIDE RECORDS SUMMARY | 2022-02-12 12:04 | XMS_ITS | Encounter Summary ---
:1970 Author Organization [facility] Address [address] [place] [address] Care Team Providers Name Role Phone Gagandeep Hinojosa MD Primary Care Provider Reason for Visit Reason Comments Post Hospital Discharge Follow Up Encounter Details Date Type Department Care Team Description 07/31/2018 [facility] Gagandeep Hinojosa, Post Hospital Discharge Medicine MD Follow Up 1415 [facility] . [address] [place] [address] [place] [address] [phone] (Wo rk) Social History Tobacco Use Types [...] encounter Nursing Notes Lisa Ruvalcaba RN - 07/31/2018 10:55 AM CDT Post hospitalization discharge follow up call completed. See doc flowsheet: HOSTX for details. documented in this encounter Plan of Treatment Not on filedocumented as of this encounter Visit Diagnoses Not on filedocumented in this encounter Care Teams Timber Poisoner Relationship Specialty Start Date End Date Gagandeep Hinojosa MD PCP - General 05/17/[address] [place] [address] Vane Zarate Psychiatrist Psychiatry 03/22/12 [facility] Mental Health Psychotherapist 08/04/17 [facility] Regional Director Of Admissions 09/13/17 documented as of this encounter
--- OUTSIDE RECORDS SUMMARY | 2022-02-12 12:04 | XMS_ITS | Encounter Summary ---
:1970 Author Organization [employer] Address [address] [address] Care Team Providers Name Role Phone Gagandeep Hinojosa MD Primary Care Provider Reason for Visit Reason Comments Patient Care Coordination Encounter Details Date Type Department Care Team Description 10/16/2018 Care Coord [facility] Deborah Rodrigues Patien t Care Phone Medicine [facility] Coordination [address] [place] [address] [place] [address] [phone] Social History Tobacco Use Types Packs/Day Years [...] encounter Progress Notes Deborah Rodrigues LICSW - 10/16/2018 9:35 AM CDT Called Rustam to check-in and see how things are going. His phone went straight to [employer], so I left a detailed [place]. [place] [phone] if he calls the clinic. documented in this encounter Plan of Treatment Not on filedocumented as of this encounter Visit Diagnoses Diagnosis Health detention, active care coordinati on - Primary documented in this encounter Care Teams Electrician Locomotive Relationship Specialty Start Date End Date Gagandeep Hinojosa MD PCP - General 05/17/12 [address] [facility] [place] [address] Vane Zarate Psychiatrist Psychiatry 03/22/12 [facility] Mental [facility] Psychotherapist 08/04/17 [facility] Take Off Worker 09/13/17 documented as of this encounter
--- OUTSIDE RECORDS SUMMARY | 2022-02-12 12:04 | XMS_ITS | Encounter Summary ---
:1970 Author Organization [employer] Address [address] [place] [address] Care Team Providers Name Role Phone Gagandeep Hinojosa MD Primary Care Provider Reason for Visit Reason Comments Back Pain Lower left back Pain X 1 day Encounter Details Date Type Department Care Team Description 10/13/2018 Office Visit [facility] Gagandeep Hinojosa ft-sided low back pain without sciatica (Primary Dx); Romario Rubio MD Marital conflict [facility] [address] [place] [address] Ave [phone] [place] [id number] Social History Tobacco Use Types Packs/Day Years [...] Sign Reading Time Taken Comments Blood Pressure 104/73 10/13/2018 3:05 PM CDT Pulse 92 10/13/2018 3:05 PM CDT Temperature - - Respiratory Rate - - Oxygen Saturation - - Inhaled Oxygen Concentration - - Weight 85.5 kg (188 lb 9.6 oz) 10/13/2018 3:05 PM CDT Height - - Body Mass Index 27.06 07/27/2018 1:49 PM CDT documented in this encounter Progress Notes Gagandeep Hinojosa MD - 10/13/2018 3:00 PM CDT ICD-10-CM 1. Acute left-sided low back pain without sciatica M54.5 2. Marital conflict Z63.0 CHIEF COMPLAINT: Chief Complaint Patient presents with ??? Back Pain Lower left back Pain X 1 day SUBJECTIVE : Timur Krishnamurthy is an 48 y.o. male who presents for 1 day history of left- sided low back pain without radicular symptoms. He feels that it may have occurred after bending and twisting earlier today. No leg weakness, no urinary retention symptoms. Has not trialed any local measures such as ice or heat, nor has he trialed any pain medication. He appears somewhat sedate and withdrawn today. He indicates that his has told him that she no longer wants to be and that she is likely going to move out of their apartment. He is devastated by this news. He suspects it is related to his ongoing issues of mental illness. He has not informed any other family members or healthcare providers of this. PROBLEM LIST: Patient Active Problem List Diagnosis Date Noted ??? Hyponatremia 01/16/2018 ??? Tobacco abuse 02/24/2016 ??? Tinea versicolor 07/18/2015 ??? Tobacco use disorder 10/26/2012 ??? Anemia 05/02/2012 Overview Note: Anemia, unspecified ??? Microalbuminuria 02/04/2012 ??? DE, old 09/16/2011 ??? History of PTCA 09/16/2011 Overview Note: History of PTCA 04/2011 BMS RCA ??? Obesity, Class I, BMI 30-34.9 09/16/2011 Overview Note: Body mass index is 31.16 kg/(m^2). ??? Hyperlipidemia with target LDL less than 70 06/08/2011 Overview Note: Hyperlipidemia LDL goal < 70 ??? ASHD (arteriosclerotic heart disease) 05/04/2011 ??? Erectile dysfunction 01/22/2011 Overview Note: side effect Risperdal ??? Type 2 diabetes mellitus, uncontrolled (HRC) 12/11/2010 Overview Note: Type II or unspecified type diabetes mellitus without mention of complication, uncontrolled (HRC) ??? Dermatophytosis of body 09/04/2010 Class: Historical Overview Note: Tinea Corporis ??? Coronary atherosclerosis 12/22/2009 Overview Note: LW Modifier: mod RCA, negative nuclear stress test ; CAD ??? Nonspecific abnormal results of liver function study 12/22/2009 Overview Note: Liver Function Tests Abnormal ??? Bipolar I disorder (HRC) 09/15/2005 Overview Note: LW Onset: [id number] ; Bipolar I Dis FAMILY HISTORY OR [...] 5 ??? amLODIPine (NORVASC) 10 MG tablet TAKE 1 TABLET BY MOUTH ONCE DAILY FOR 90 DAYS 90 Tablet 0 ??? ammonium lactate (LAC-HYDRIN) 12 % lotion [...] BY MOUTH TWICE A DAY 2 ??? insulin degludec (TRESIBA FLEXTOUCH) 200 UNIT/ML [...] CAPSULE BY MOUTH EVERY DAY 0 ??? [place] Carbonate 600 MG capsule Take 600 mg [...] 1 Tablet by mouth. 01/16/2018: [facility] Sig: Take 1 tablet by [...] tablet 3 mg two times a day. No facility-administered medications prior to visit. ALLERGIES: [...] Alert, cooperative in no acute distress. Appears somewhat subdued Vital Signs: BP 104/73 (BP Location: Left Arm, BP Cuff Size: Adult Large) Pulse 92 Wt 188 lb 9.6oz (85.5 kg) BMI 27.06 kg/m?? Eyes: PERRLA, full EOM. Neck: Supple, without masses, lymphadenopathy or tenderness. Respiratory: Normal respiratory effort. Heart: RRR Abdomen: The abdomen was soft and nondistended, normal sounds present. No obvious masses or organomegaly. No back spasm appreciated Extremities: Straight leg raising is negative, toe standing and heel walking are maintained. Neurologic: Patellar and Achilles reflexes are absent bilaterally. LABS : ASSESSMENT /PLAN ICD-10-CM 1. Acute left-sided low back pain without sciatica M54.5 2. Marital conflict Z63.0 Discussed that this is a new development and that in sufficient time is past to allow it definitive diagnosis as to the etiology of his back pain. He will use Morgan exercises which were demonstrated. His marital development is also fairly fresh. He was advised not to pursue any rash decisions, advised to seek assistance if he has challenges. He agrees not to harm himself. Follow-up: 1 week if not improved documented in this encounter Plan of Treatment Not on filedocumented as of this encounter Visit Diagnoses Diagnosis Acute left-sided low back pain without s ciatica - Primary Marital conflict Counseling for marital and partner probl ems, unspecified documented in this encounter Care Teams Pheresis Specialist Relationship Specialty Start Date End Date Gagandeep Hinojosa MD PCP - General 05/17/12 [facility] [place] [address] Vane Zarate Psychiatrist Psychiatry 03/22/12 [facility] Mental Health Psychotherapist 08/04/17 [facility] Powertrain Control Systems Engineer 09/13/17 documented as of this encounter
--- OUTSIDE RECORDS SUMMARY | 2022-02-12 12:04 | XMS_ITS | Encounter Summary ---
:1970 Author Organization [employer] Address [address] [place] [address] Care Team Providers Name Role Phone Gagandeep Michaud MD Primary Care Provider Reason for Visit Reason Comments Refill metFORMIN (GLUCOPHAGE) 500 M G tablet [Pharmacy Med Name: METFORMIN 500MG TAB] Encounter Details Date Type Department Care Team Description 09/28/2018 Refill [facility] Gagandeep Michaud, Refrose mary l (metFORMIN Medicine MD (GLUCOPHAGE) [address] tablet [[place] [address] [place] [address] Name: METFORMIN 500MG [phone] (Wo rk) TAB]) Social History Tobacco Use Types Packs/Day Years [...] encounter Nursing Notes Shayy Haynes RN - 09/28/2018 6:01 PM CDT Renewed medication per medication refill protocol. Requested Prescriptions Pending Prescriptions Disp Refills metFORMIN (GLUCOPHAGE) 500 MG tablet [Pharmacy Med Name: METFORMIN 500MG TAB] 360 Tablet 0 Sig: TAKE 2 TABLETS BY MOUTH TWICE DAILY WITH MEALS Interface, Out Geom[employer] Query - 09/28/2018 9:45 AM CDT metFORMIN (GLUCOPHAGE) 500 MG tablet [Pharmacy Med Name: METFORMIN 500MG TAB] Medication started: 01/16/2014 Last ordered by GAGANDEEP MICHAUD F: 06/07/2018 (113 days ago) QTY: 360, Refills: 0, Sig: take 2 tablets by mouth two times a day with meals. (changed but equivalent) -> Rapid A1C is abnormal (10.9 % is greater than 8.0 %) -> Refill x 3 months (until due for a(n) Rapid A1C check) Last qualifying visit: 08/07/2018 (with GAGANDEEP MICHAUD) Next scheduled visit: None GFR (CrCl) estimated: >60 ml/min on 01/19/2018 Rapid A1C : 10.9 % on 07/27/2018 Powered by basno, Reference: [id number], 09/28/2018 9:45:25 AM CDT, Pool: MANUEL MOORE ([id number]) documented in this encounter Plan of Treatment Not on filedocumented as of this encounter Visit Diagnoses Diagnosis Uncontrolled type 2 diabetes mellitus wi thout complication, without long-term current use of insulin documented in this encounter Care Teams General Maintenance Engineer Relationship Specialty Start Date End Date Gagandeep Michaud MD PCP - General 1/23/13 1415 [facility] [place] [address] Vane Zarate Psychiatrist Psychiatry 03/22/12 [facility] Mental Health Psychotherapist 08/04/17 [facility] Field Cane Scaler 09/13/17 documented as of this encounter
--- OUTSIDE RECORDS SUMMARY | 2022-02-12 12:04 | XMS_ITS | Encounter Summary ---
:1970 Author Organization [employer] Address [address] [place] [address] Care Team Providers Name Role Phone Gagandeep Michaud MD Primary Care Provider Reason for Visit Reason Comments Refill amLODIPine (NORVASC) 10 MG t ablet [Pharmacy Med Name: AMLODIPINE 10MG TAB] Encounter Details Date Type Department Care Team Description 09/28/2018 Refill Gagandeep Storm Refil l (amLODIPine Medicine (NORVASC) 10 MG tablet [address] [Pharmacy Med Name: [place] [address] [place] [address] AMLODIPINE 10MG TAB]) [phone] (Wo rk) Social History Tobacco Use Types [...] encounter Nursing Notes Shayy Haynes RN - 09/29/2018 1:57 PM CDT Further Assistance Needed on Refill from Clinician RN reviewed. Medication ordered for short term. ?? Please advise if senior living supply is appropriate ?? Last qualifying visit: 08/07/2018 (with GAGANDEEP MICHAUD) ? Next scheduled visit: None Review pended order for accuracy. Sign if appropriate. Document if appointment is needed for furtherrefills. Route to care team to notify patient if needed. Requested Prescriptions Pending Prescriptions Disp Refills ??? amLODIPine (NORVASC) 10 MG tablet [Pharmacy Med Name: AMLODIPINE 10MG TAB] 90 Tablet 0 Sig: TAKE 1 TABLET BY MOUTH ONCE DAILY FOR 90 DAYS Interface, Out Surescripts Prov Query - 09/28/2018 9:45 AM CDT amLODIPine (NORVASC) 10 MG tablet [Pharmacy Med Name: AMLODIPINE 10MG TAB] Medication started: 01/10/2018 Last ordered by GAGANDEEP MICHAUD F: 07/27/2018 (63 days ago) QTY: 90, Refills: 0, Sig: take 1 tabletby mouth daily for 90 days. (changed but equivalent) -> Refill x 12 months (until due for an office visit) -> Calculate quantity and refills manually. They could not be estimated due to missing or unreadable information. Last qualifying visit: 08/07/2018 (with GAGANDEEP MICHAUD) Next scheduled visit: None SBP: 117 mm Hg on 08/07/2018 DBP: 81 mm Hg on 08/07/2018 Powered by [employer], Reference: [id number], 09/28/2018 9:45:25 AM CDT, Pool: MANUEL LANDAILL ([id number]) documented in this encounter Plan of Treatment Not on filedocumented as of this encounter Visit Diagnoses Diagnosis Essential hypertension (HRC) Unspecified essential hypertension Uncontrolled type 2 diabetes mellitus wi thout complication, without long-term current use of insulin documented in this encounter Care Teams Assistant Manager/Embalmer Relationship Specialty Start Date End Date Gagandeep Michaud MD PCP - General 05/17/12 1415 [facility] [place] [address] Vane Zarate Psychiatrist Psychiatry 03/22/12 [facility] Mental Health Psychotherapist 08/04/17 [facility] Classification Inspector 09/13/17 documented as of this encounter
--- OUTSIDE RECORDS SUMMARY | 2022-02-12 12:04 | XMS_ITS | Encounter Summary ---
:1970 Author Organization [employer] Address [address] [place] [address] Care Team Providers Name Role Phone Gagandeep Hinojosa MD Primary Care Provider Encounter Details Date Type Department Care Team Description 07/27/2018 Lab Visit [facility] Uncontrolled type [address] mellitus with hyperglycemia [place] [address] ([facility]) [phone] Social History Tobacco Use Types Packs/Day Years [...] Name Priority Date/Time Associated Diagnosis Comme nts HGB A1C, POINT OF Routine 07/27/2018 2:02 PM Uncontrolled type 2 Results for this CARE CDT diabetes mellitus with proce dure are in hyperglycemia (HRC) the resu lts section. documented in this encounter Results (ABNORMAL) POCT Glycosylated Hemoglobin (HB A1C) (07/27/2018 2:02 PM CDT) [facility] gist Method Time Signature Hemoglobin A1C 10.9 (H) <=5.6 % 07/27/2018 [place] (Rapid) 2:15 PM CDT LABORATORY Specimen Anatomical Collection Method / Collection Time Recei abimael Time (Source) Location / Volume Laterality Blood Venipuncture / 07/27/2018 2:02 07/27/2018 2:03 Unknown PM CDT PM CDT Narrative [place] [facility] - 07/27/2018 2:15 PM CDT This Rapid A1c test is designed for charlotte toring patients with an established diagnosis of diabetes mellitus. This rapid method is not suitable to establish the initial diagnosis of diabetes mellitus. Performe d using Point of Care Instrumentation. Gagandeep Hinojosa MD LAB_1 Performing Organization Address City/State/ZIP Code Phon e Number [place] [facility] [address] [facility] [place] [address] documented in this encounter Visit Diagnoses Diagnosis Uncontrolled type 2 diabetes mellitus wi th hyperglycemia (HRC) documented in this encounter Care Teams Latex Foam Worker Relationship Specialty Start Date End Date Gagandeep Hinojosa MD PCP - General 05/17/12 [address] [facility] [place] [address] Vane Zarate Psychiatrist Psychiatry 03/22/12 [facility] Psychotherapist 08/04/17 [facility] Sap Integration Architect 09/13/17 documented as of this encounter
--- OUTSIDE RECORDS SUMMARY | 2022-02-12 12:04 | XMS_ITS | Encounter Summary ---
:1970 Author [facility] Address [address] [place] [address] Care Team Providers Name Role Phone Gagandeep Hinojosa MD Primary Care Provider Reason for Referral (Routine) - Closed Specialty Diagnoses / Procedures Referred By Contact Refer red To Contact Diagnoses LV dysfunction Gagandeep Hinojosa MD Procedures Echocardiogram [address] [place] [address] Referral ID Status Reason Start Date Expiration Date Visits Requ ested Visits Authorized [id number] Closed 08/07/2018 11/06/2019 1 1 Reason for Visit Reason Comments Follow-up Test results Encounter Details Date Type Department Care Team Description 08/07/2018 Office Visit Gagandeep Storm LV dysfu nction Romario Rubio MD (Primary Dx) [address] [facility] . [address] [place] [address] [address] [phone] [place], [place] [address] Social History Tobacco Use [...] Sign Reading Time Taken Comments Blood Pressure 117/81 08/07/2018 2:54 PM CDT Pulse 105 08/07/2018 2:54 PM CDT Temperature - - Respiratory Rate - - Oxygen Saturation - - Inhaled Oxygen Concentration - - Weight 90.2 kg (198 lb 14.4 oz) 08/07/2018 2:54 PM CDT Height - - Body Mass Index 28.54 07/27/2018 1:49 PM CDT documented in this encounter Progress Notes Gagandeep Hinojosa MD - 08/07/2018 3:00 PM CDT ICD-10-CM 1. LV dysfunction I51.9 Echocardiogram CHIEF COMPLAINT: Chief Complaint Patient presents with ??? Follow-up Test results SUBJECTIVE : Timur Krishnamurthy is an 48 y.o. male who presents for recheck. He completed his Lexiscan which showed no perfusion defect. However, he did have some modest LV dysfunction, which has been appreciated in previous echoes. However, his functionality seems to be reduced to with ejection fraction of less than what was measured in May, despite having no symptoms. He does have poorly controlled diabetes, and his dose of insulin was updated today. Given his good performance on his Lexiscan, we should be able to return to normal activities. PROBLEM LIST: Patient Active Problem List Diagnosis Date Noted ??? Hyponatremia 01/16/2018 ??? Tobacco abuse ([facility]) 02/24/2016 ??? Tinea versicolor 07/18/2015 ??? Tobacco use disorder ([facility]) 10/26/2012 ??? Anemia 05/02/2012 Overview Note: Anemia, unspecified ??? Microalbuminuria 02/04/2012 ??? GA, old ([facility]) 09/16/2011 ??? History of PTCA 09/16/2011 Overview Note: History of PTCA 04/2011 BMS RCA ??? Obesity, Class I, BMI 30-34.9 ([facility]) 09/16/2011 Overview Note: Body mass index is 31.16 kg/(m^2). ??? Hyperlipidemia with target LDL less than 70 ([facility]) 06/08/2011 Overview Note: Hyperlipidemia LDL goal < 70 ??? ASHD (arteriosclerotic heart disease) ([facility]) 05/04/2011 ??? Erectile dysfunction 01/22/2011 Overview Note: side effect Risperdal ??? Type 2 diabetes mellitus, uncontrolled ([facility]) 12/11/2010 Overview Note: Type II or unspecified type diabetes mellitus without mention of complication, uncontrolled ([facility]) ??? Dermatophytosis of body 09/04/2010 Class: Historical Overview Note: Tinea Corporis ??? Coronary atherosclerosis ([facility]) 12/22/2009 Overview Note: LW Modifier: mod RCA, negative nuclear stress test ; CAD ??? Nonspecific abnormal results of liver function study 12/22/2009 Overview Note: Liver Function Tests Abnormal ??? Bipolar I disorder ([facility]) 09/15/2005 Overview Note: LW Onset: [id number] ; Bipolar I Dis FAMILY HISTORY OR [...] MG tablet Take 1 Tablet by mouth daily for 90 days. 90 Tablet 0 ??? ammonium lactate (LAC-HYDRIN) 12 % lotion Apply topically daily. (Patient not taking: Reported on 08/07/2018) 500 mL 11 ??? aspirin 81 MG [...] R) 100 UNIT/ML injection Inject 2 units of insulin per 15 grams of carbbefore breakfast and dinner, at least 6 hours apart. Add Sliding Scale +1 unit/50 >150. 10 mL 11 ??? Insulin Syringe-Needle U-100 (INSULIN SYRINGE 31G X 5/16) 31G X 5/16 1 ML Inject 1 Each subcutaneously 4 times a day. 400 Each 3 ??? lithium carbonate 300 MG capsule Take 300 mg by mouth daily. 01/16/2018: Received from: External Pharmacy Received Sig: TAKE ONE CAPSULE BY MOUTH EVERY DAY 0 ??? Sophia Carbonate 600 MG capsule Take 600 mg [...] 1 Tablet by mouth. 01/16/2018: [facility] [employer] [facility] Received Sig: Take 1 tablet by mouth [...] in no acute distress. Vital Signs: BP 117/81 (BP Location: Right Arm, BP Cuff Size: Adult Large) Pulse (!) 105 Wt 198 lb 14.4 oz (90.2 kg) BMI 28.54 kg/m?? Eyes: PERRLA, full EOM. Respiratory: Normal respiratory effort. Heart: RRR Abdomen: The abdomen was soft and nondistended, normal sounds present. No obvious masses or organomegaly. Extremities: No peripheral edema Neurologic: Much more sedate today, conversant. Facial symmetry preserved. LABS : Pending ASSESSMENT /PLAN ICD-10-CM 1. LV dysfunction I51.9 Echocardiogram Letter allowing for normal work about provided. Follow-up:per echo documented in this encounter Plan of Treatment Not on filedocumented as of this encounter Visit Diagnoses Diagnosis LV dysfunction - Primary Heart disease, unspecified documented in this encounter Care Teams Multimedia Author Relationship Specialty Start Date End Date Gagandeep Hinojosa MD PCP - General 05/17/12 [address] [facility] [place] [address] [address] Zarate Psychiatrsamantha Psychiatry 03/22/12 [facility] Psychotherapist 08/04/17 [facility] Business Analysis Specialist 09/13/17 documented as of this encounter
--- OUTSIDE RECORDS SUMMARY | 2022-02-12 12:04 | XMS_ITS | Encounter Summary ---
:1970 Author Organization [employer] [facility] [employer] Address [address], [place] [address] Care Team Providers Name Role Phone Gagandeep Hinojosa MD Primary Care Provider Reason for Visit Reason Comments Patient Care Coordination Encounter Details Date Type Department Care Team Description 12/07/2018 Care Coord [place] [facility] Deborah Rodrigues Patien t Care Phone Medicine [facility] Coordination [address] [place] [address] [place] [address] [place] [address] [place] [address] [phone] Social History Tobacco Use Types Packs/Day Years [...] encounter Progress Notes Deborah Rodrigues LICSW - 12/07/2018 10:11 AM CDT Called Rustam to check-in and see how things are going. I left a detailed message [place] [phone] if he calls the clinic. documented in this encounter Plan of Treatment Not on filedocumented as of this encounter Visit Diagnoses Diagnosis Health intermediate, active care coordinati on - Primary documented in this encounter Care Teams Veneer Sander Relationship Specialty Start Date End Date Gagandeep Hinojosa MD PCP - General 05/17/12 [address] [facility] [place] [address] Vane Zarate Psychiatrist Psychiatry 03/22/12 [facility] Psychotherapist 08/04/17 [facility] Employee Development Manager 09/13/17 documented as of this encounter
--- OUTSIDE RECORDS SUMMARY | 2022-02-12 12:04 | XMS_ITS | Encounter Summary ---
:1970 Author Organization [facility] Address [address] [address] Care Team Providers Name Role Phone Gagandeep Hinojosa MD Primary Care Provider Reason for Visit Reason Comments Pharmacy Encounter Details Date Type Department Care Team Description 08/02/2018 [facility] MD Pharmacy [address] [facility] . [address] [place] [address] [place] [address] [phone] (Wo rk) Social History Tobacco Use Types Packs/Day Years Used Date Smoking Tobacco: Former Cigarettes 1 25 Smokeless Tobacco: Former Qu it: 10/25/2012 Comments: Smoking History Packs/day: Alcohol Use Standard Drinks/Week Comments No 0 (1 standard drink = 0.6 oz pure Alcoho lic Drinks/day: Amount:0; alcohol) Freq:Never; Sex Assigned at Date Recorded Not on file documented as of this encounter Nursing Notes Barbara Villegas LPN - 08/07/2018 3:38 PM CDT Left information on VM. Phone number left if any questions. IT Gagandeep Hinojosa MD - 08/07/2018 3:16 PM CDT Novolin R dose in 16 units daily. Call pharmacy Laureen Woody RN - 08/04/2018 9:17 AM CDT Spoke with pharmacy, checking on status. Camila Garcia - 08/04/2018 9:14 AM CDT Pharmacy calling back about prescription. Need to know the daily units for insurance. Transferred tonurse line. Teri Lockett RN - 08/02/2018 9:33 AM CDT Clinician Action: Input needed regarding Medication Clinician Next Step: Route to [facility] nurse Specific Request(s): 1. Pharmacy requesting maximum daily unit of Novolin R for insurance purposes Ivelisse Krishnan - 08/02/2018 8:36 AM CDT Medications - Pharmacy Calls Is your question or concern about a Prior Authorization? No. What is the question or concern? Need to know the maximum daily unit of the Novllin R or Insulin Regular for insurance purposes What is the name and dose of the medication? insulin regular (NOVOLIN R) 100 Who prescribed it? (include first & last name) Gagandeep Hinojosa MD Please route to: Triage Pool (If patient is waiting, route as high priority) documented in this encounter Plan of Treatment Not on filedocumented as of this encounter Visit Diagnoses Not on filedocumented in this encounter Care Teams Fishing Captain Relationship Specialty Start Date End Date Gagandeep Hinojosa MD PCP - General 05/17/12 [facility] [place] [address] [address] Zarate Psychiatrist Psychiatry 03/22/12 [facility] Psychotherapist 08/04/17 [facility] Tablet Machine Operator 09/13/17 documented as of this encounter
--- OUTSIDE RECORDS SUMMARY | 2022-02-12 12:04 | XMS_ITS | Encounter Summary ---
:1970 Author [facility] Address [address] [address] Care Team Providers Name Role Phone Gagandeep Hinojosa MD Primary Care Provider Reason for Visit Reason Comments APPOINTMENT REQUEST Encounter Details Date Type Department Care Team Description 07/27/2018 Care Coord Phone Judy Luke R N APPOINTMENT REQUEST [facility] [address] [facility] [address] [place] [address] . [place] [address] [place] [phone] Social History Tobacco Use Types Packs/Day Years [...] encounter Progress Notes Judy Pittman RN - 07/27/2018 6:13 PM CDT Referral for Care Coordination services received from Dr Hinojosa: ?CARE COORDINATION - PRIMARY CARE CON* [#[id number]] ?Priority: Routine ??Class: [facility] Location ?Comment:New injectables vs Invokana ?Associated Diagnoses ?E11.65 Uncontrolled type 2 diabetes mellitus with hyperglycemia (HRC) ?Reason for referral? -> Difficulty managing conditions, treatments, or ? medications To Scheduling, please assist with appt. documented in this encounter Plan of Treatment Not on filedocumented as of this encounter Visit Diagnoses Not on filedocumented in this encounter Care Teams Senior Automation Engineer Relationship Specialty Start Date End Date Gagandeep Hinojosa MD PCP - General 05/17/[address] [place], [place] [address] [address] Vane Zarate Psychiatrist Psychiatry 03/22/12 [facility] Psychotherapist 08/04/17 [facility] Second Facing Baster 09/13/17 documented as of this encounter
--- OUTSIDE RECORDS SUMMARY | 2022-02-12 12:04 | XMS_ITS | Encounter Summary ---
:1970 Author Organization [employer] Address [address], [place] [address] Care Team Providers Name Role Phone Gagandeep Hinojosa MD Primary Care Provider Reason for Referral (Routine) - Closed Specialty Diagnoses / Procedures Referred By Contact Refer red To Contact Diagnoses Chest pain at rest Zara Fox MD Procedures Outreach Nuclear Study [address] [place], [place] [address] Referral ID Status Reason Start Date Expiration Date Visits Requ ested Visits Authorized [id number] Closed 08/16/2018 11/15/2019 1 1 Encounter Details Date Type Department Care Team Description 08/04/2018 Hospital Encounter Heart & Vascular Chest pain at rest Center Nuclear (Primary Dx) Cardiology [address] [employer] [facility] [place] [address] Social History Tobacco Use Types [...] Take 1 Tablet by mouth 90 Tablet 0 07/201809/28/2018 10 MG daily for 90 days. tabletIndications: Essential hypertension (HRC) ammonium lactate Apply topically daily. 500 mL 11 018 03/17/2020 (LAC-HYDRIN) 12 % lotion atorvastatin (LIPITOR) Take 1 Tablet by mouth 90 Tablet 3 0 07/27/2018 08/10/2019 80 MG daily. tabletIndications: ASHD (arteriosclerotic heart disease) ([facility]), Hyperlipidemia with target LDL less than 70 ([facility]) blood glucose (ONE Use to test two [...] 4 MM Sugar >. insulin regular Inject 2 units of 10 mL 11 08/01/2018 (NOVOLIN R) 100 insulin per 15 [...] complication, with long-term current use of insulin lithium carbonate 300 Take 300 mg by mouth 0 12/2408/28/2019 MG capsule daily. [place] Carbonate 600 Take 600 mg by mouth 0 12/2406/21/2019 MG capsule daily at bedtime. metFORMIN (GLUCOPHAGE) Take 2 Tablets by 360 Tablet 0 201809/28/2018 500 MG mouth two times a day tabletIndications: with meals. Uncontrolled type 2 diabetes mellitus without [...] MG tablet documented as of this encounter Progress Notes Helen Reynolds - 08/04/2018 11:59 PM CDT Encounter addended by: Helen Reynolds on: 08/23/2018 5:24 PM Actions taken: Sign clinical note, Result filed documented in this encounter Procedure Notes Helen Reynolds - 08/04/2018 11:59 PM CDTAssociated Order(s): OUTREACH NUCLEAR STUDY Results NM CARDIAC MPI STRESS TEST ( (Order [id number]) STRESS TEST PHARMACOLOGICAL ( (Order [id number]) Original Order Diagnosis: Chest pain at rest [R07.9 (ICD-10-CM)] Chest pain at rest [R07.9 (ICD-10-CM)] Reading Provider(s) Juan Daniel Caba MD PACs images are not viewable in [employer] Link. See text report below. 08/20/2018 4:54 PM - Juan Daniel Caba MD Narrative & Impression NUCLEAR MYOCARDIAL PERFUSION STUDY, 08/04/2018 INDICATION: Chest pain. This is a rest/stress, single isotope, single photon emission computed tomography imaging with pharmacologic stress and gated SPECT imaging. CLINICAL QUESTION: Evaluation of known coronary artery disease. CLINICAL HISTORY: 48-year-old man with known coronary artery disease. He has had a prior percutaneous coronary intervention in the past. Other cardiac risk factors include hyperlipidemia, hypertension,diabetes. Current symptoms include chest pain. PHARMACOLOGIC PROCEDURE: Pharmacologic stress testing was performed with the Lexiscan walk protocol.The heart rate was 89 beats per minute at baseline and shruti to 121 bats per minute during the Lexiscan walk protocol. Myocardial perfusion imaging was performed at stress following the injection of 9.2mCi of technetium 99m sestamibi. At peak pharmacologic effect, the patient was injected with 30.0 mCi of technetium 99m sestamibi. FINDINGS: Overall quality of the study is fair. The left ventricular cavity is noted to be normal. SPECT images demonstrate homogeneous tracer distribution throughout the myocardium. Gated SPECT imaging reveals global hypokinesis. The left ventricular ejection fraction was calculated to be 33%. IMPRESSION: Myocardial perfusion imaging is normal. Overall left ventricular systolic function was abnormal without regional wall motion abnormalities. No prior study was available for comparison. Would recommend a transthoracic echocardiogram to confirm the presence of left ventricular dysfunction. Juan Daniel Caba M.D. REF:njd Lab and Collection STRESS TEST PHARMACOLOGICAL - 08/04/2018 Result History STRESS TEST PHARMACOLOGICAL on 08/20/2018 Hard Copy Result Report Open Hard Copy Results Report Patient Release Status: This result is not viewable by the patient. Patient Information Patient Name Timur Krishnamurthy ([id number]) Sex Male documented in this encounter Plan of Treatment Not on filedocumented as of this encounter Procedures Procedure Name Priority Date/Time Associated Diagnosis Comme nts OUTREACH NUCLEAR Routine 08/04/2018 11:59 PM Chest pain at res t Results for this STUDY CDT procedure are i n the results section. documented in this encounter Results Outreach Nuclear Study (08/04/2018 11:59 PM CDT) Narrative PN POCT - 08/04/2018 11:59 PM CDT GailHelen johnson ? 08/23/2018 ??3:57 PM Results NM CARDIAC MPI STRESS TEST ( [id number]) (Order [id number]) STRESS TEST PHARMACOLOGICAL (Accession [id number]) (Order [id number]) Original Order Diagnosis: Chest pain at rest [R07.9 (ICD-10-CM)] Chest pain at rest [R07.9 (ICD-10-CM)] ? ? Reading Provider(s) Juan Daniel Caba MD PACs images are not viewable in [employer] Link. See text report below. 08/20/2018 4:54 PM - Juan Daniel Caba MD Narrative & Impression NUCLEAR MYOCARDIAL PERFUSION STUDY, 07/24 INDICATION: Chest pain. This is a rest/stress, single isotope, s ruy photon emission computed tomography imaging with pharmac ologic stress and gated SPECT imaging. CLINICAL QUESTION: Evaluation of known c oronary artery disease. CLINICAL HISTORY: 48-year-old man with k nown coronary artery disease. He has had a prior percutaneous coronary intervention in the past. Other cardiac risk factors inc lude hyperlipidemia, hypertension, diabetes. Current symptoms include chest pain. PHARMACOLOGIC PROCEDURE: Pharmacologic s tress testing was performed with the Lexiscan walk protoco l. The heart rate was 89 beats per minute at baseline and shruti to 121 bats per minute during the Lexiscan walk protocol. Myoca rdial perfusion imaging was performed at stress following the in jection of 9.2 mCi of technetium 99m sestamibi. At peak pharma cologic effect, the patient was injected with 30.0 mCi of te chnetium 99m sestamibi. FINDINGS: Overall quality of the study i s fair. The left ventricular cavity is noted to be normal . SPECT images demonstrate homogeneous tracer distribut ion throughout the myocardium. Gated SPECT imaging reveals global hypokinesis. The left ventricular ejection fraction was c alculated to be 33%. IMPRESSION: Myocardial perfusion imaging is normal. Overall left ventricular systolic function was abnorm al without regional wall motion abnormalities. No prior study was available for comparison. Would recommend a transthora cic echocardiogram to confirm the presence of left ventricular dysfunction. Juan Daniel Caba M.D. REF:njd ?? Lab and Collection STRESS TEST PHARMACOLOGICAL - 08/04/2018 Result History STRESS TEST PHARMACOLOGICAL on 08/20/2018 Hard Copy Result Report Open Hard Copy Results Report Patient Release Status: This result is not [facility]able by the [facility]. Patient Information Patient Name Timur Krishnamurthy ([id number]) Sex Male Procedure Note Bailee Reynoldslys - 08/04/2018 11:59 PM CD T Results NM CARDIAC MPI STRESS TEST ( [id number]) (Order [id number]) STRESS TEST PHARMACOLOGICAL (Accession [id number]) (Order [id number]) Original Order Diagnosis: Chest pain at rest [R07.9 (ICD-10-CM)] Chest pain at rest [R07.9 (ICD-10-CM)] Reading Provider(s) Juan Daniel Caba MD PACs images are not viewable in [employer] Link. See text report below. 08/20/2018 4:54 PM - Juan Daniel Caba MD Narrative & Impression NUCLEAR MYOCARDIAL PERFUSION STUDY, 07/24 INDICATION: Chest pain. This is a rest/stress, single isotope, s ruy photon emission computed tomography imaging with pharmacologic stress and gated SPECT imaging. CLINICAL QUESTION: Evaluation of known c oronary artery disease. CLINICAL HISTORY: 48-year-old man with k nown coronary artery disease. He has had a prior percutaneous coronary intervention in the past. Other cardiac risk factors include hyperlipidemia, hypertension, diabetes. Current symptoms include chest pain. PHARMACOLOGIC PROCEDURE: Pharmacologic s tress testing was performed with the Lexiscan walk protocol. The heart rate was 89 beats per minute at baseline and shruti to 121 bats per minute during the Lexiscan walk protocol. Myocardial perfusion imaging w as performed at stress following the injection of 9.2 mCi of technetium 99m sestamibi. At peak pharmacologic effect, the patient was injected with 30.0 mCi of technetium 99m sestamibi. FINDINGS: Overall quality of the study i s fair. The left ventricular cavity is noted to be normal. SPECT images demonstrate homogeneous tracer distribution throughout the myocardium. Gated SPECT imaging reveals global hypokinesis. The left ventricular ejecti on fraction was calculated to be 33%. IMPRESSION: Myocardial perfusion imaging is normal. Overall left ventricular systolic function was abnormal without regional wall motion abnormalities. No prior study was available for comparison. Would recommend a transthoracic echocardiogram to confirm the presence of left ventricular dysfunction. Juan Daniel Caba M.D. REF:njd Lab and Collection STRESS TEST PHARMACOLOGICAL - 08/04/2018 Result History STRESS TEST PHARMACOLOGICAL on 08/20/2018 Hard Copy Result Report Open Hard Copy Results Report Patient Release Status: This result is not viewable by the [facility]. Patient Information Patient Name Timur Krishnamurthy ([id number]) Sex Male Zara Fox MD PN CARDIAC SERVICES ORDERABL ES Performing Organization Address City/State/ZIP Code Phon e Number POCT PN POCT documented in this encounter Visit Diagnoses Diagnosis Chest pain at rest - Primary Chest pain, unspecified documented in this encounter Care Teams Appeals Court Associate Justice Relationship Specialty Start Date End Date Gagandeep Hinojosa MD PCP - General 05/17/12 14[address] [facility] [place] [address] Vane Zarate Psychiatrsamantha Psychiatry 03/22/12 [facility] Psychotherapist 08/04/17 [facility] Guidance Services Coordinator 09/13/17 documented as of this encounter
--- OUTSIDE RECORDS SUMMARY | 2022-02-12 12:05 | XMS_ITS | Encounter Summary ---
:1970 Author Organization [employer] Address [address] [place] [address] Care Team Providers Name Role Phone Gagandeep Hinojosa MD Primary Care Provider Reason for Visit Reason Comments Hospital Discharge Follow-up Encounter Details Date Type Department Care Team Description 01/16/2018 Office Visit Gagandeep Storm Bipolar I disorder ([facility]) (Primary Dx); Romario Rubio MD Encounter for immunization; [address] [place] [address] [address] [phone] [place], [place] [address] Social History Tobacco Use Types Packs/Day Years Used Date Smoking Tobacco: Former Cigarettes 1 25 Smokeless Tobacco: Former Qu it: 10/25/2012 Tobacco Cessation: Counseling Given: No Comments: Smoking History Packs/day: Alcohol Use Standard Drinks/Week Comments No 0 (1 standard drink = 0.6 oz pure Alcoho lic Drinks/day: Amount:0; alcohol) Freq:Never; Sex Assigned at Date Recorded Not on file documented as of this encounter Last Filed Vital Signs Vital Sign Reading Time Taken Comments Blood Pressure 124/76 01/16/2018 1:08 PM CDT Pulse 66 01/16/2018 1:08 PM CDT Temperature - - Respiratory Rate - - Oxygen Saturation - - Inhaled Oxygen Concentration - - Weight 93.4 kg (206 lb) 01/16/2018 1:08 PM CDT Height - - Body Mass Index 29.56 04/05/2017 3:18 PM HOT DOG VENDER documented in this encounter Progress Notes Gagandeep Hinojosa MD - 01/16/2018 1:00 PM CDT ICD-10-CM 1. Bipolar I disorder ([facility]) F31.9 2. Encounter for immunization Z23 Influenza IIV4 (Quadrivalent) 0.5 mL (70290) 3. Hyponatremia E87.1 Basic Metabolic Panel CHIEF COMPLAINT: Chief Complaint Patient presents with ??? Hospital Discharge Follow-up SUBJECTIVE : Timur Krishnamurthy is an 47 y.o. male who presents for posthospitalization recheck. [facility] benzodiazepine and was not comfortable at that facility, signing himself out AMA. He was subsequently readmitted to [facility], where he has more comfort andwas observed until felt to be psychologically stable. He admits that this was a suicide gesture but does not wish to be . Again he is having challenges financially and one of his medications, Invega, is prohibitively expensive. He is not smoking at this time. While hospitalized, his A1c was in themid sevens. His daily sugars since pain home however have been higher, usually in the mid 200s. He has follow-up already in place with his psychiatrist. He is not working at present. PROBLEM LIST: Patient Active Problem List Diagnosis Date Noted ??? Hyponatremia 01/16/2018 ??? Tobacco abuse ([facility]) 02/24/2016 ??? Tinea versicolor 07/18/2015 ??? Tobacco use disorder ([facility]) 10/26/2012 ??? Anemia 05/02/2012 Overview Note: Anemia, unspecified ??? Health retirement, active care coordination 03/22/2012 Overview Note: Golf Course Designer: JOSETTE Yip [phone] Care coordination focus: T2DM, financial resources Living situation: lives with spouse Important notes: SSDI, significant insulin resistance, uses Relion insulin, commonly reaches Medicare Coverage Gap See care plan under Chart [facility] > [facility] CARE PLAN REPORT ??? Microalbuminuria 02/04/2012 ??? NV, old ([facility]) 09/16/2011 ??? History of PTCA 09/16/2011 Overview Note: History of PTCA 04/2011 BMS RCA ??? Obesity, Class I, BMI 30-34.9 ([facility]) 09/16/2011 Overview Note: Body mass index is 31.16 kg/(m^2). ??? Hyperlipidemia with target LDL less than 70 ([facility]) 06/08/2011 Overview Note: Hyperlipidemia LDL goal < 70 ??? ASHD (arteriosclerotic heart disease) ([facility]) 05/04/2011 ??? Erectile dysfunction 01/22/2011 Overview Note: side effect Risperdal ??? Type 2 diabetes mellitus, uncontrolled ([facility]) 12/11/2010 Overview Note: Type II or unspecified type diabetes mellitus without mention of complication, uncontrolled ([facility]) ??? Dermatophytosis of body 09/04/2010 Class: Historical Overview Note: Tinea Corporis ??? Coronary atherosclerosis ([facility]) 12/22/2009 Overview Note: LW Modifier: mod RCA, negative nuclear stress test ; CAD ??? Nonspecific abnormal results of liver function study 12/22/2009 Overview Note: Liver Function Tests Abnormal ??? Bipolar I disorder ([facility]) 09/15/2005 Overview Note: LW Onset: [id number] ; Bipolar I Dis FAMILY HISTORY OR SICK CONTACTS : No family history on file. SOCIAL HISTORY : Social History Substance Use Topics ??? Smoking status: Former Smoker Packs/day: 1.00 Years: 25.00 Types: Cigarettes ??? Smokeless tobacco: Former User Quit date: 10/25/2012 Comment: Smoking History Packs/day: ??? Alcohol use No Comment: Alcoholic Drinks/day: Amount:0; Freq:Never; MEDICATIONS : Outpatient Medications Prior to Visit Medication Sig Note Dispense Refill ??? ammonium lactate (LAC-HYDRIN) 12 % lotion Apply topically daily. 500 mL 11 ??? aspirin 81 MG chewable tablet TAKE 1 TABLET BY MOUTH DAILY . 100 tablet 1 ??? atorvastatin (LIPITOR) 80 MG tablet TAKE 1 TABLET BY MOUTH EVERY DAY 90 Tab 3 ??? blood glucose (ONE TOUCH ULTRA BLUE) test strip Use to test two times a day. Pharmacy dispense brand based on insurance. ICD-10: E11.29, E11.65, R80.9, Z79.4 100 Strip 7 ??? Charcoal 260 MG Take 1 Tab by mouth two times a day. (Patient not taking: Reported on 10/20/2017)180 Cap 3 ??? divalproex ER (DEPAKOTE ER) 250 MG 24 hour release tablet Take 2,000 mg by mouth daily. Indications: Manic Phase of Manic-Depression 900 Tab 3 ??? insulin degludec (TRESIBA FLEXTOUCH) 200 UNIT/ML SOPN Inject 24 Units subcutaneously daily. 9 mL6 ??? insulin pen needle (BD ULTRAFINE JANET) 32G X 4 MM Inject subcutaneously as needed for Blood Sugar >. 100 Each 11 ??? insulin regular (NOVOLIN R) 100 UNIT/ML injection Sliding scale 110 mL 0 ??? Insulin Syringe-Needle U-100 (INSULIN SYRINGE 31G X 5/16) 31G X 5/16 1 ML Inject 1 Each subcutaneously 4 times a day. 400 Each 3 ??? LORazepam (ATIVAN) 1 MG tablet Take 1 mg by mouth every 6 hours as needed for Anxiety (pt takes at 8am and 6pm). ??? metFORMIN (GLUCOPHAGE) 500 MG tablet Take 2 Tabs by mouth two times a day with meals. 360 Tab 1 ??? metoprolol succinate (TOPROL XL) 50 MG 24 hour release tablet Take 1 Tab by mouth daily. 90 Tab 1 ??? ONE TOUCH ULTRA 2 meter Use to test 4 times a day. 1 Each 0 ??? ONETOUCH DELICA lancets Use to test 4 times a day. 400 Each 3 ??? ONETOUCH ULTRA CONTROL solution Use to test as needed. 1 Each 11 ??? lisinopril (ZESTRIL) 10 MG tablet TAKE 1 TABLET BY MOUTH EVERY DAY. 90 Tablet 1 ??? QUEtiapine (SEROQUEL) 300 MG tablet Take 200 mg by mouth daily at bedtime. 06/03/2017: Received from: External Pharmacy Received Sig: TAKE ONE TABLET BY MOUTH AT BEDTIME 5 No facility-administered medications prior to visit. ALLERGIES: Allergies Allergen Reactions ??? Aripiprazole permanent shaking in left arm ??? Gabapentin Suicidal thoughts ??? Haloperidol Shock ??? Nitroglycerin Nausea And Vomiting ??? Thiothixene Other, see comments Muscle spasm ??? Wellbutrin [Bupropion] Anxiety OBJECTIVE : Gen.: Alert, cooperative in no acute distress. He is more settled, less tangential than usual. Vital Signs: BP 124/76 (BP Location: Right Arm, BP Cuff Size: Adult Regular/Long) Pulse 66 Wt 206 lb (93.4 kg) BMI 29.56 kg/m2 Eyes: PERRLA, full EOM. Neck: Supple, without masses, lymphadenopathy or tenderness. Respiratory: Normal respiratory effort. Heart: RRR Abdomen: The abdomen was soft and nondistended, normal sounds present. No obvious masses or organomegaly. Extremities: No tremor Neurologic: Appearance: Appropriately dressed Motor ability: No tremor, no dysmetria, no ataxia Speech: Less pressure, appropriate Affect: Controlled, not flat. Thought content: Fairly focused, less embellishment than usual Thought process: Seems to be extrapolating beyond his current medical status but is comfortable withhis ambivalence Perception: Acceptable Intellectual capability: Average Insight: Somewhat poor LABS : He was found in the hospital to be still hyponatremic. This is been a long-standing phenomenon is unclear if this is secondary to medication or to polydipsia ASSESSMENT /PLAN ICD-10-CM 1. Bipolar I disorder ([facility]) F31.9 2. Encounter for immunization Z23 Influenza IIV4 (Quadrivalent) 0.5 mL (97649) 3. Hyponatremia E87.1 Basic Metabolic Panel Follow-up: With his psychiatrist for medical management. documented in this encounter Plan of Treatment Not on filedocumented as of this encounter Results (ABNORMAL) Basic Metabolic Panel (01/16/2018 1:49 PM CDT) Analysis Performed At Patho logist Time Signature Creatinine 0.70 (L) 0.73 - PN SOFT Serum 1.18 mg/dL Lab Glucose 367 (H) 70 - 100 PN SOFT mg/dL Comment: The stated glucose range is for the fast ing state. Non-fasting glucose range is 70-180 mg/d L CO2 26 22 - 31 mmol/L PN SOFT Chloride 100 98 - 109 mmol/L PN SOFT Potassium 5.6 (H) 3.5 - 5.2 mmol/L PN SOFT Sodium 134 (L) 136 - 145 mmol/L PN SOFT Blood Urea Nitrogen 16 9 - 26 mg/dL PN SOFT Calcium 9.3 8.4 - 10.4 mg/dL PN SOFT Est GFR Am >60 >60 mL/min/1.73m2 PN SOFT Est GFR Non-Afr Am >60 >60 mL/min/1.73m2 PN SOFT Comment: Normal>60, moderate decrease 30 - 59, se lenora decrease 15 - 29, renal failure <15 mL/min/1.73 m2 NOTE: ??Choose the eGFR result above kaylee ropriate for the race of the patient. Specimen Anatomical Collection Method Collection Time Receive d Time (Source) Location / / Volume Laterality 01/16/2018 1:49 PM 8 5:20 CDT PM CDT Narrative PN SOFT - 01/16/2018 6:36 PM CDT Performed at [facility], [address] [place] [address] CLIA number [id number] Gagandeep Hinojosa MD LAB_1 Performing Organization Address City/State/ZIP Code Phon e Number PN SOFT [address] [place] [address] documented in this encounter Visit Diagnoses Diagnosis Bipolar I disorder ([facility]) - Primary Bipolar I disorder, most recent episode (or current) unspecified Encounter for immunization Need for other specified prophylactic va ccination against single bacterial disease Hyponatremia Hyposmolality and/or hyponatremia Hyponatremia Hyposmolality and/or hyponatremia documented in this encounter Care Teams Vehicle And Equipment Cleaner Relationship Specialty Start Date End Date Gagandeep Hinojosa MD PCP - General 05/17/12 [facility] [place] [address] Vane Zarate Psychiatrsamantha Psychiatry 03/22/12 [facility] Psychotherapist 08/04/17 [facility] Manager Administrative 09/13/17 documented as of this encounter
--- OUTSIDE RECORDS SUMMARY | 2022-02-12 12:05 | XMS_ITS | Encounter Summary ---
:1970 Author Organization [employer] Address [address] [place] [address] Care Team Providers Name Role Phone Gagandeep Hinojosa MD Primary Care Provider Reason for Visit Reason Comments HC Face To Face Visit Encounter Details Date Type Department Care Team Description 01/12/2018 Care Coord Judy Luke RN [facility] Face To Face Office Visit Medicine [address] [facility] Visit [address] [place] [id number] Social History Tobacco Use Types Packs/Day Years Used Date Smoking Tobacco: Every Day Cigarettes 1 25 Smokeless Tobacco: Former Qu it: 10/25/2012 Comments: Smoking History Packs/day: Alcohol Use Standard Drinks/Week Comments No 0 (1 standard drink = 0.6 oz pure Alcoho lic Drinks/day: Amount:0; alcohol) Freq:Never; Sex Assigned at Date Recorded Not on file documented as of this encounter Progress Notes Judy Pittman RN - 01/12/2018 10:00 AM CDT RN Cook Seafood Visit Pt: Timur Krishnamurthy Referred by: Gagandeep Hinojosa MD Reason for referral: Diabetes type 2 controlled Most recent vitals signs: Wt Readings from Last 3 Encounters: 08/15/17 205 lb (93 kg) 08/05/17 213 lb (96.6 kg) 06/03/17 223 lb (101.2 kg) BP Readings from Last 3 Encounters: 08/15/17 126/78 04/13/18 134/82 06/03/17 122/84 Most recent lab results: HGB A1C (%) Date Value 04/29/2017 9.7 (H) Lab Results Component Value Date/Time LDL 40 08/15/2017 08:43 AM LDL 123 07/13/2013 10:39 AM Social History Substance Use Topics ??? Smoking status: Current Every Day Smoker Packs/day: 1.00 Years: 25.00 Types: Cigarettes ??? Smokeless tobacco: Former User Quit date: 10/25/2012 Comment: Smoking History Packs/day: ??? Alcohol use No Comment: Alcoholic Drinks/day: Amount:0; Freq:Never; Current diabetes medications: Metformin (Glucophage) 1,000 mg BID Tresiba (insulin degludec U-200) 22 units daily ReliOn R 1.5 units per CHO choice per sliding scale Aspirin: yes - 81 mg Glucose meter: One Touch Ultra 2 CURRENT GLUCOSE PATTERNS: from memory Fastin - 250 2 hours after largest meal: 220 - 340 Hypoglycemia (previous two weeks): none ASSESSMENT: Rustam is here for hospital follow up, this is a joint visit with Lesly Rodrigues [employer]. He was hospitalized from 11/26-01/09 at [facility] for mental health and suicidal ideation. Rustam reports he is doing better, but admits he still has considerable work to do to get back on his feet. Mental Health and Smoking Cessation See Lesly's note for documentation. Financial Concerns Rustam is worried about the cost of his medical care and medication. He is unable to work at this time and is behind on his car payments. Rustam is worried about transportation to his medical and mental health appts. Because Rustam and his 's combined income is over eligibility guidelines for assistance, Lesly and I recommended contacting his [facility] Second Hand Paper Machine for assistance and resources. Rustam agreed. Medication I spent time reviewing Rustam's medication list and changes that were made during his hospitalization. Rustam is aware of all the medications he is taking, but admits he knows them better by sight vs name. He has an appt with his psychiatrist, Dr Huff, next week to review his mental health medication. Rustam is taking a slightly lower dose of Tresiba and using the same unit/CHO ratio and sliding scalefor his Regular insulin as prior to his hospitalization. Of note, Rustam reports his metformin was held during his hospitalization and restarted yesterday. He took the full 1,000 mg last evening and does report minimal stomach upset. I recommended starting with metformin 500 mg BID to start, gradually titrating his dose by 500 mg every 7 days, up to the full therapeutic 1,000 mg bid dosing he was taking prior to hospitalization. He agreed. I reviewed Rustam's sliding scale and how to use it. We practiced counting CHO choices, calculating 1.5 units per CHO choice, then adding the sliding scale. Rustam was able to independently and accurately calculate his Regular insulin dose given a hypothetical meal and pre-prandial BG. Blood Glucose Rustam continues to SMBG before meals and HS, but forgot to bring his readings today. He reports his glucose was under excellent control up until discharge, when his BG readings suddenly began to increase above 200 the week before discharge. Rustam is worried about his BG because his BG recently increased as high as 340. I noted that resuming metformin will help to reduce his BG and insulin needs. I advised Rustam to keep his Tresiba dose the same at 22 units for now, waiting to see how his BG respondswith resuming metformin, and then use his Regular insulin sliding scale to help control his BG. Because of the addition of new mental health medication, it is possible that Rustam's insulin resistance has increased, and he will require additional insulin going forward. Follow up Rustam is scheduled for hospital follow up with Dr Hinojosa next week. He will follow up with Lesly and myself in 2 weeks, but call sooner if he has questions about his insulin. Family/social support: Patient attended today's visit alone. He currently lives with spouse. Current activity regimen: none Patient barrier(s) to learning identified: Finance, Emotional and Transportation. BG Goals: Health Group Home Lab Goal <7 Pre-meal: 70-130 mg/dL PPG: <180 mg/dL Bedtime: 90-150 mg/dL A1c: <7.0% Recommended testing frequency: Before breakfast, before main meal and 2 hours after start of main meal Education content covered today: Oral Diabetes medications Hyperglycemia Basic Pattern Control BG Monitoring CHO Counting Rustam received verbal instructions and written materials tailored to his preferred method of learning. Literacy level assessed (as appropriate). Interventions, including teach back, used to verify understanding. SHARED PLAN: Contact Mental Health [employer] for assistance with medication and insurance resources. Continue current insulin regimen for now, use sliding scale as prescribed. Resume metformin 500 mg BID, gradually increase by 500 mg every 7 days up to 1,000 mg BID. SMBG qid as directed, record readings. HOSDC with Dr Hinojosa on 01/16/18. RN Cook Seafood as needed for questions. Scheduled follow up on 01/26/18, bring BG readings. Rustam to call if symptoms of hypoglycemia or readings < 70 mg/dL. Rustam verbalized understanding and agreed with plan of care and follow up. documented in this encounter Plan of Treatment Not on filedocumented as of this encounter Visit Diagnoses Diagnosis Health alf, active care coordinati on - Primary Type 2 diabetes mellitus with microalbum inuria, with long-term current use of insulin ([facility]C) Bipolar I disorder ([facility]) Bipolar I disorder, most recent episode (or current) unspecified documented in this encounter Care Teams Tuck Pointer Relationship Specialty Start Date End Date Gagandeep Hinojosa MD PCP - General 05/17/12 [address] [facility] [place] [address] Vane Zarate Psychiatrist Psychiatry 03/22/12 [facility] Psychotherapist 08/04/17 [facility] Second Hand Paper Machine 09/13/17 documented as of this encounter
--- OUTSIDE RECORDS SUMMARY | 2022-02-12 12:05 | XMS_ITS | Encounter Summary ---
:1970 Author Organization [employer] Address [address] [place] [address] Care Team Providers Name Role Phone Gagandeep Hinojosa MD Primary Care Provider Reason for Visit Reason Comments APPOINTMENT REQUEST Encounter Details Date Type Department Care Team Description 09/12/2017 Telephone [facility] Gagandeep Hinojosa, APPOINTMENT REQUEST [phone] [place] [address] [place], [place] [phone] (Wo rk) Social History Tobacco Use Types [...] encounter Nursing Notes Deborah Rodrigues LICSW - 09/13/2017 7:59 AM CDT I contacted Rustam and let him know that I can't do a phone appointment, but could reschedule his HCHappointment for later in the week. He declined and said he would be to the clinic shortly. IT Ashley Guan RN - 09/12/2017 10:02 PM CDT Reason for Call: Deborah Rodrigues SOFTWARE TECHNICIAN - Patient calls. He has an appointment on 09/13/17 at 8 am. States, recently had Surgery and he needs to be with her tomorrow. He prefers to speak with you byphone instead of at [facility] 09/13/17 at 8am. Patient Timur may be contacted at . documented in this encounter Plan of Treatment Not on filedocumented as of this encounter Visit Diagnoses Not on filedocumented in this encounter Care Teams Sql Report Analyst Relationship Specialty Start Date End Date Gagandeep Hinojosa MD PCP - General 05/17/[address] [place] [address] Vane Zarate Psychiatrist Psychiatry 03/22/12 [facility] Psychotherapist 08/04/17 [facility] Access Services Librarian 09/13/17 documented as of this encounter
--- OUTSIDE RECORDS SUMMARY | 2022-02-12 12:05 | XMS_ITS | Encounter Summary ---
:1970 Author Organization [employer] Address [address], [place] [address] Care Team Providers Name Role Phone Gagandeep Hinojosa MD Primary Care Provider Reason for Visit Reason Comments [facility] Phone Visit Encounter Details Date Type Department Care Team Description 11/11/2017 Care Coord Phone [facility] Deborah Rodrigues, [facility] Phone Visit Medicine [facility] [address] [facility] . [address] [place] [address] [place] [address] [phone] Social History Tobacco Use Types Packs/Day Years Used Date Smoking Tobacco: Every Day Cigarettes 1 25 Smokeless Tobacco: Former Qu it: 10/25/2012 Comments: Smoking History Packs/day: Alcohol Use Standard Drinks/Week Comments No 0 (1 standard drink = 0.6 oz pure Alcoho lic Drinks/day: Amount:0; alcohol) Freq:Never; Sex Assigned at Date Recorded Not on file documented as of this encounter Progress Notes Deborah Rodrigues, [facility] - 11/11/2017 8:46 AM CDT Parasitology Teacher - Phone Call Contact with: Rustam Reason for call: Care Coordination Discussion/actions: Received a phone call from Rustam, stating I am not doing so great. Rustam stated that he cannot stop pacing, is having really anxious thoughts, and has not been able to calm himself down. I did some breathing exercises with Rustam over the phone, and helped ground himself. Rustam stated that he took another half tab of Ativan, to see if that helped. I process some of Rustam's worries with him, and encouraged him to bring himself into the current moment, as he does not have control over things that are uncertain. Rustam was very concerned about getting in trouble at work for the situation with the drive off yesterday. Again talked with Rustam about not knowing this for certain, sotrying to bring him back to a place of certainty. Rustam also stated that he has been feeling more depressed, I do not see the glass is half full anymore. He again denied any thoughts of suicide, but definitely feels like he is low. I encouraged him to contact his psychiatrist, so that they are awareof his change, especially because his medications recently were changed. Rustam was able to calm downon the phone and agreed with the above plan. He will contact the crisis line, if something changes or he needs someone to talk to. Rustam denied any other concerns at this time. Shared plan: --SW/RN Care Coordination appointment 11/17 at 9:00. Pt verbalized understanding and agreed with plan of care and follow up. Deborah Rodrigues LICSW - 11/11/2017 8:45 AM CDT Parasitology Teacher - Phone Call Contact with: Rustam Reason for call: Care Coordination Discussion/actions: Received a phone call from Rustam for his scheduled check-in. Rustam stated that he continues to have high anxiety and is taking Ativan to help. Rustam also stated that he is continuing to go to work, although this is been somewhat stressful for him. 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 Rustam reports that his mood has been flat, but denies any thoughts of suicide and stated he feels safe. Rustam stated that his relationship at home has improved some this week, and he continues to process his feelings during his weekly therapy sessions. Rustam denied any other concerns at this time and confirmed his next care coordination appointment with RN and SW. He will call if he has concerns before then. Shared plan: -SW/RN Care Coordination appointment 11/17 at 9:00. Pt verbalized understanding and agreed with plan of care and follow up. documented in this encounter Plan of Treatment Not on filedocumented as of this encounter Visit Diagnoses Diagnosis Health senior care, active care coordinati on - Primary documented in this encounter Care Teams Assistant Auditor Relationship Specialty Start Date End Date Gagandeep Hinojosa MD PCP - General 05/17/12 [address] [facility] [place] [address] Vane Zarate Psychiatrist Psychiatry 03/22/12 [facility] Mental Health Psychotherapist 08/04/17 [facility] Maori Physiotherapist 09/13/17 documented as of this encounter
--- OUTSIDE RECORDS SUMMARY | 2022-02-12 12:05 | XMS_ITS | Encounter Summary ---
:1970 Author Organization [email or web address] Address [address] [place] [address] Care Team Providers Name Role Phone Gagandeep Hinojosa MD Primary Care Provider Encounter Details Date Type Department Care Team Description 01/19/2018 Notes/Orders [facility] Vane Zarate, Encounter for long-term 14[address] [place] Isle[place]ilip Bonds MD (current) use of [place] Vigil [address] medications (Primary [phone] HEAVEN [address] Dx) [place], [place] [id number] Social History Tobacco Use Types Packs/Day Years [...] on filedocumented as of this encounter Results Free T4 (01/19/2018 11:41 AM CDT) athologist Signature Thyroxine, Free 0.7 0.7 - 1.5 PN SOFT ng/dL Specimen Anatomical Collection Method Collection Time Receive d Time (Source) Location / / Volume Laterality 01/19/2018 11:41 01/19/2018 3:07 AM CDT PM CDT Narrative PN SOFT - 01/19/2018 4:07 PM CDT Performed at [facility], [facility] [place] [address] CLIA number [id number] Joey Zarate MD LAB_1 Performing Organization Address [facility] Phon e Number PN SOFT [address] [place] [address] T3, Free, Serum (01/19/2018 11:41 AM CDT) P athologist Signature Triiodothyronin 2.5 1.7 - 3.7 PN SOFT e, Free pg/mL Specimen Anatomical Collection Method Collection Time Receive d Time (Source) Location / / Volume Laterality 01/19/2018 11:41 01/19/2018 3:07 AM CDT PM CDT Narrative PN SOFT - 01/19/2018 4:07 PM CDT Performed at [address] [address] CLIA number [id number] .Results faxed to Jennifer Zarate M.D 9,[id number], 01/19/2018,16:15, by MONROE Joey Zarate MD LAB_1 Performing Organization Address [facility] Phon e Number PN SOFT [address] [place] [address] [phone] (ABNORMAL) TSH (01/19/2018 11:41 AM CDT) [facility] gist Method Time Signature Thyroid 4.52 (H) 0.30 - PN SOFT Stimulating 4.50 Hormone uIU/mL Specimen Anatomical Collection Method Collection Time Receive d Time (Source) Location / / Volume Laterality 01/19/2018 11:41 01/19/2018 3:07 AM CDT PM CDT Narrative PN SOFT - 01/19/2018 4:07 PM CDT Performed at [address] [address] CLIA number [id number] Joey Zarate MD LAB_1 Performing Organization Address [facility] Phon e Number PN SOFT [address] [place] [address] (ABNORMAL) Sodium (01/19/2018 11:41 AM CDT) P athologist Signature Sodium 135 (L) 136 - 145 PN SOFT mmol/L Specimen Anatomical Collection Method Collection Time Receive d Time (Source) Location / / Volume Laterality 01/19/2018 11:41 01/19/2018 2:49 AM CDT PM CDT Narrative PN SOFT - 01/19/2018 3:54 PM CDT Performed at [facility], [facility] [address] [place] [address] CLIA number [id number] Joey Zarate MD LAB_1 Performing Organization Address City/[facility] Code Phon e Number PN SOFT [address] [place] [address] (ABNORMAL) Creatinine / GFR (01/19/2018 11:41 AM CDT) Analysis Performed At Path logist Time Signature Creatinine 0.70 (L) 0.73 [...] - 01/19/2018 3:54 PM CDT Performed at [facility], [facility] [address] [place] [address] CLIA number [id number] Joey Zarate MD LAB_1 Performing Organization Address City/[facility] Code Phon e Number PN SOFT [address] [place] [address] [phone] [place] (01/19/2018 11:41 AM CDT) Analysis Performed At Patho logis Time Signature Date Last Dose 01-19-2018 PN SOFT Lith Time Last Dose 730 am PN SOFT [place] Level 0.73 0.50 - PN SOFT 1.10 mmol/L Specimen Anatomical Collection Method Collection Time Receive d Time (Source) Location / / Volume Laterality 01/19/2018 11:41 01/19/2018 3:09 AM CDT PM CDT Narrative PN SOFT - 01/19/2018 3:38 PM CDT Performed at [address] [address] CLIA number [id number] Joey Zarate MD LAB_1 Performing Organization Address [facility] Phon e Number PN SOFT [address] [place] [address] (ABNORMAL) Hgb A1c (01/19/2018 11:41 AM CDT) athologist Signature HGB A1C 8.0 (H) 4.0 - 5.6 % PN SOFT Specimen Anatomical Collection Method Collection Time Receive d Time (Source) Location / / Volume Laterality 01/19/2018 11:41 01/19/2018 3:10 AM CDT PM CDT Narrative PN SOFT - 01/19/2018 10:04 PM CDT Performed at [address] [address] CLIA number [id number] .Results faxed to Jennifer Zarate M.D 9,[phone], 01/19/2018,16:15, by MONROE Joey Zarate MD LAB_1 Performing Organization Address [facility] Phon e Number PN SOFT [address] [place] [address] Call List Questions (01/19/2018 11:35 AM CDT) P athologist Signature Call Back Done PN SOFT Documented Specimen (Source) Anatomical Collection Method Collection Time Re ceived Time Location / / Volume Laterality 01/19/2018 11:35 AM CDT Narrative PN SOFT - 01/19/2018 11:35 AM CDT Performed at [address] [address] CLIA number [id number] Joey Zarate MD LAB_1 Performing Organization Address [facility]/ZIP Code Phon e Number PN SOFT [address] [place] [address] documented in this encounter Visit Diagnoses Diagnosis Encounter for long-term (current) use of medications - Primary Encounter for long-term (current) use of other medications Encounter for long-term (current) use of medications Encounter for long-term (current) use of other medications documented in this encounter Care Teams Care Tech Relationship Specialty Start Date End Date Gagandeep Hinojosa MD PCP - General 05/17/12 14[address] [facility] [place] [address] Vane Zarate Psychiatrist Psychiatry 03/22/12 [facility] Psychotherapist 08/04/17 [facility] Lens Grinding Machine Operator 09/13/17 documented as of this encounter
--- OUTSIDE RECORDS SUMMARY | 2022-02-12 12:05 | XMS_ITS | Encounter Summary ---
:1970 Author Organization [employer] Address [address] [place] [address] Care Team Providers Name Role Phone Gagandeep Michaud MD Primary Care Provider Reason for Visit Reason Onset Date Comments Refill 09/21/2017 blood glucose (ONE T OUCH ULTRA BLUE) test strip Encounter Details Date Type Department Care Team Description 09/21/2017 Refill [place] [facility] Gagandeep Michaud, Refil l (blood glucose Medicine (ONE TOUCH ULTRA BLUE) [address] [facility] [place] [address] [place], [place] [address] (Wo rk) Social History Tobacco Use Types [...] encounter Nursing Notes Judy Pittman RN - 09/22/2017 10:10 AM CDT Rustam met with me today for DM follow up. I provided requested refills for testing strips to [facility] pharmacy. Interface, Out Surescripts Prov Query - 09/21/2017 2:39 PM CDT blood glucose (ONE TOUCH ULTRA BLUE) test strip Medication started: 06/09/2016 Last ordered by GAGANDEEP MICHAUD F: 09/20/2017 (1 days ago) QTY: 100, Refills: 4, Sig: use to test two times a day. use as directed. pharmacy dispense brand based on insurance. (changed) -> This medication may not have been authorized by the requested provider. -> The request contains a note from the pharmacy. -> The requested sig has changed from the last order. -> Refill x 12 months (maximum allowed) -> Calculate quantity and refills manually. They could not be estimated due to missing or unreadable information. Last qualifying visit: 08/15/2017 (with GAGANDEEP MICHAUD) Next scheduled visit: None Powered by [employer], Reference: [id number], 09/21/2017 2:39:52 PM CDT, Pool: MANUELNoni LANDAILL ([id number]) Evelin Stockton - 09/21/2017 2:39 PM CDT DIAGNOSIS CODE REQUEST: Request received for ICD-10 code to be listed on rx. Please advise, thank you. documented in this encounter Plan of Treatment Not on filedocumented as of this encounter Visit Diagnoses Diagnosis Uncontrolled type 2 diabetes mellitus wi th microalbuminuria, with long-term current use of insulin - Primary documented in this encounter Care Teams Signal Maintainer Relationship Specialty Start Date End Date Gagandeep Michaud MD PCP - General 05/17/12 1415 [facility] [place] [address] Vane Zarate Psychiatrsamantha Psychiatry 03/22/12 [facility] Psychotherapist 08/04/17 [facility] Mental Health Case Manager 09/13/17 documented as of this encounter
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
--- OUTSIDE RECORDS SUMMARY | 2022-02-12 12:05 | XMS_ITS | Encounter Summary ---
:1970 Author Organization [employer] Address [address] [place] [address] Care Team Providers Name Role Phone Gagandeep Hinojosa MD Primary Care Provider Reason for Visit Reason Onset Date Comments Refill 01/11/2018 Encounter Details Date Type Department Care Team Description 01/11/2018 [facility]phone [facility] Gag[facility] Hinojosa MD Refill [address] [facility] . [address] [facility] [place] [place] [address] [place] [address] [phone] (Wo rk) Social History Tobacco Use Types [...] encounter Nursing Notes Judy Pittman RN - 01/25/2018 11:38 AM CDT Appt tomorrow, will send to the lab to recheck potassium. Jacqueline Vizcaino - 01/25/2018 11:01 AM CDT I will route to career technical education teacher as he has appt with her tomorrow. Marci York LPN - 01/23/2018 9:38 AM CDT LM for pt to call back for message regarding labs. He is to come in for another lab test, see notes below. Gagandeep Hinojosa MD - 01/19/2018 6:04 PM CDT Please call pt. Potassium has risen for unknown reasons. Most likely, this is spurious and merely needs to be repeated. Sodium has normalized. Lab order for potassium has been placed documented in this encounter Plan of Treatment Not on filedocumented as of this encounter Results (ABNORMAL) Potassium (01/26/2018 9:56 AM CDT) P athologist Signature Potassium 5.4 (H) 3.5 - 5.2 PN SOFT mmol/L Specimen Anatomical Collection Method Collection Time Receive d Time (Source) Location / / Volume Laterality 01/26/2018 9:56 AM 8 CDT 11:23 AM CDT Narrative PN SOFT - 01/26/2018 11:38 AM CDT Performed at [facility], [address] [place] [address] CLIA number [id number] Gagandeep Hinojosa MD LAB_1 Performing Organization Address City/State/ZIP Code Phon e Number PN SOFT [address] [place] [address] documented in this encounter Visit Diagnoses Diagnosis Hyperkalemia - Primary Hyperpotassemia Uncontrolled type 2 diabetes mellitus wi th microalbuminuria, with long-term current use of insulin Hyperkalemia Hyperpotassemia documented in this encounter Care Teams Hat Copyist Relationship Specialty Start Date End Date Gagandeep Hinojosa MD PCP - General 05/17/12 [address] [place] [address] Vane Zarate Psychiatrsamantha Psychiatry 03/22/12 [facility] Psychotherapist 08/04/17 [facility] Channel Man 09/13/17 documented as of this encounter
--- OUTSIDE RECORDS SUMMARY | 2022-02-12 12:05 | XMS_ITS | Encounter Summary ---
:1970 Author Organization [employer] Address [address], [place] [address] Care Team Providers Name Role Phone Gagandeep Hinojosa MD Primary Care Provider Reason for Visit Reason Comments HC Face To Face Visit Encounter Details Date Type Department Care Team Description 09/13/2017 Care Coord Deborah Odom, [facility] Fa ce To Face Office Visit Medicine [facility] Visit [address] [address] [place] [address] [facility] [address] [place] [address] [phone] Social History Tobacco Use Types Packs/Day Years Used Date Smoking Tobacco: Every Day Cigarettes 1 25 Smokeless Tobacco: Former Qu it: 10/25/2012 Comments: Smoking History Packs/day: Alcohol Use Standard Drinks/Week Comments No 0 (1 standard drink = 0.6 oz pure Alcoho lic Drinks/day: Amount:0; alcohol) Freq:Never; Sex Assigned at Date Recorded Not on file documented as of this encounter Progress Notes Deborah Rodrigues, [facility] - 09/13/2017 8:00 AM CDT Care Coordination Visit Pt: Timur Krishnamurthy Referred by: Gagandeep Hinojosa MD Reason for visit: Care Coordination Timur was seen alone. Discussion/actions: Met with Rustam for a scheduled [facility] appointment. He arrived 15 minutes late, as he had called to request a phone appointment instead of in person. Explained to Rustam that might [facility] appointments are in person, so a full picture of information can be gathered. Rustam expressed understanding and stated he wanted to stay on track, so he would attend his appointments as scheduled. Rustam stated that his mood has been revved up, I definitely see a correlation with the caffeine. He denied any thoughts of suicide or racing thoughts, but stated that he is still talking a lot and has difficulty staying on topic. Rustam said that he is only drinking one cup of coffee a day, and is really trying to stick to this plan. Rustam continues to smoke, but has been limiting himself to 15-20 aday. His hope is to quit smoking by December, I just really need to be done with this. Rustam stated that he has been sleeping better, and is taking all of his medications as prescribed. He is attending the [facility] weekly and attend individual therapy weekly, both of which he thinks are really good support for him. Rustam met with his CM, Ksenia Weiss (ph: [phone]),and he said it went well. He was unsure when he would be meeting with her next, but believes he willhave regular contact with her. Rustam signed a release of information, so that Jimena French can communicate with her. Rustam needed redirection during the appointment several times, when he would get off topic. 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 Some grandiosity throughoutthe conversation, but was able to redirect back on topic with prompting. Rustam agreed that continuing to meet with all of his supports in the community are helpful to him. He schedule a follow-up SW/RN Care Coordination appointment next week. No further concerns at this time. Patient barrier(s) to learning identified: Finance, Disease state and Emotional. Patient received verbal instructions and written materials tailored to his or her preferred method of learning. Literacy level assessed (as appropriate). Interventions, including teach back, used to verify understanding. Patient Goal(s): 1. I want to have better mental health. Goal: in process 2. I want to pay my bills. Goal: in process ?? SHARED PLAN: - CM follow up as needed. -SW/RN HC appointment 09/22 at 10:00. Pt verbalized understanding and agreed with plan of care and follow up. documented in this encounter Plan of Treatment Not on filedocumented as of this encounter Visit Diagnoses Diagnosis Health senior care, active care coordinati on - Primary documented in this encounter Care Teams Equipment Lead Relationship Specialty Start Date End Date Gagandeep Hinojosa MD PCP - General 05/17/12 1415 [facility] [place] [address] Vane Zarate Psychiatrsamantha Psychiatry 03/22/12 [facility] Mental Health Psychotherapist 08/04/17 [facility] CM Welder Setter Electron Beam Machine 09/13/17 documented as of this encounter
--- OUTSIDE RECORDS SUMMARY | 2022-02-12 12:05 | XMS_ITS | Encounter Summary ---
:1970 Author Organization [employer] Address [address] [address] Care Team Providers Name Role Phone Gagandeep Hinojosa MD Primary Care Provider Reason for Referral Procedure/Equipment (Routine) - Closed Specialty Diagnoses / Procedures Referred By Contact Refer red To Contact Diagnoses Type 2 diabetes mellitus with diabetic neuropathy, unspecified whether oysterman insulin use (HRC) History of diabetic ulcer of foot Edward Nino DPM [address] [place], [place] [address] Referral ID Status Reason Start Date Expiration Date Visits Requ ested Visits Authorized [id number] Closed 10/08/2017 01/07/2019 1 1 Scheduling Instructions Your provider has recommended an appoint ment with [facility]. You may call [phone] t o schedule your appointment. If you do not schedule an appointment within the next 1 to 3 business days, we will call you to help arrange your appointment. We sugges t you call your health insurance company about your coverage and benefits for thi s appointment. Reason for Visit Reason Comments Ulcer, Foot ruised appearance at MTPJ ar ea on left grt toe area, noted 7/10 at worse, no drainage, completed abx g iven ORTHOTICS check if need orthotics CALLUSES left callousing on plantar a twan Consult/Transfer Care (Routine) - Closed Specialty Diagnoses / Procedures Referred By Contact Refer red To Contact Diagnoses Diabetic ulcer of left midfoot associated with type 2 diabetes mellitus, limited to breakdown of skin (HRC) Gagandeep Hinojosa MD [address] [place] [address] Referral ID Status Reason Start Date Expiration Date Visits Requ ested Visits Authorized [id number] Closed 08/15/2017 11/14/2018 1 1 Encounter Details Date Type Department Care Team Description 10/06/2017 Initial Consult [place] [address] Edward Nino, Type 2 diabetes mellitus with diabetic neuropathy, unspecified whether oysterman insulin use (HRC) (Primary Dx); Podiatric MedSurg DPSimi History of diabetic ulcer of foot [address] [place] [address] [place] [facility] [place] [address] [place], [place] [phone] Social History Tobacco Use Types Packs/Day Years Used Date Smoking Tobacco: Every Day Cigarettes 1 25 Smokeless Tobacco: Former Qu it: 10/25/2012 Comments: Smoking History Packs/day: Alcohol Use Standard Drinks/Week Comments No 0 (1 standard drink = 0.6 oz pure Alcoho lic Drinks/day: Amount:0; alcohol) Freq:Never; Sex Assigned at Date Recorded Not on file documented as of this encounter Progress Notes Edward Nino DPM - 10/06/2017 1:12 PM CDT NAME: SHARLENE VARNER MR#: [id number] CSN: [id number] AUTHENTICATING CLINICIAN: Edward Nino DPM CONFIRM #: [id number] LOC: 3239 CLINIC PROGRESS NOTE DATE OF VISIT: 10/06/2017 : 1970 47-year-old male who is seen for a diabetic foot check. He has a history of left foot ulcer, states none currently. No drainage. He has seen Khoa Armendariz RN, for foot care at [facility]. Typically wears a sandal or athletic shoe. Rarely goes barefoot or stocking-footed. Does not use any lotion on his feet. He states he does have some numbness and neuropathy in the forefoot. PAST MEDICAL HISTORY/MEDICATIONS/ALLERGIES: Reviewed in Epic. 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 He does smoke a pack of cigarettes per day. REVIEW OF SYSTEMS: Positive for numbness in the forefeet, some electrical sensations in his feet. Denies any swelling, warmth, or redness. The remainder of the complete review of systems is negative. EXAM: GENERAL: Shows a male who appears his stated age, alert and oriented x3. EXTREMITIES: Pedal pulses are 2/4. Cap refill is instantaneous. Light touch sensation is diminished from the midfoot distal. The skin has good turgor, texture, and tone. There is some hyperkeratosis onboth heels. On the left, there is a hyperkeratosis sub-5th metatarsal head. It is sharply reduced. There are some mild hemorrhagic changes. No full-thickness wound or ulceration is noted. MUSCULOSKELETAL: Shows no gross deformities. IMPRESSION: 1.Type 2 diabetes mellitus, with neuropathy. 2.History of diabetic ulcer, left foot. PLAN: The hyperkeratosis was reduced. Discussed the importance of his daily foot inspections. He should avoid going barefoot or stocking-footed. Use lotion on his feet daily. I did give him a prescription for diabetic shoes and inserts. He may continue to go to a foot care nurse at [place]. Follow up with me as needed. LATA:BREANNA C: CONFIRM #: [id number] documented in this encounter Plan of Treatment Scheduled Referrals Name Type Priority Associated Diagnoses Order S chedule Orthotics Order Referral Routine Type 2 diabetes mellitus with Ordered: 10/08/2017 diabetic neuropathy, unspecified whether long ter m insulin use (HRC ) History of diabetic ulcer of foot documented as of this encounter Visit Diagnoses Diagnosis Type 2 diabetes mellitus with diabetic n europathy, unspecified whether oysterman insulin use (HRC) - Primary History of diabetic ulcer of foot documented in this encounter Care Teams Internet Designer Relationship Specialty Start Date End Date Gagandeep Hinojosa MD PCP - General 05/17/12 1415 [facility] [place] [address] Vane Zarate Psychiatrist Psychiatry 03/22/12 [facility] Psychotherapist 08/04/17 [facility] Voting Machine Mechanic 09/13/17 documented as of this encounter
--- OUTSIDE RECORDS SUMMARY | 2022-02-12 12:05 | XMS_ITS | Encounter Summary ---
:1970 Author Organization [employer] Address [address] [place] [address] Care Team Providers Name Role Phone Gagandeep Hinojosa MD Primary Care Provider Reason for Visit Reason Comments HC Face To Face Visit Encounter Details Date Type Department Care Team Description 09/22/2017 Care Coord Judy Luke RN [facility] Face To Face Office Visit Medicine [address] [facility] Visit [address] [place] [id number] Social History Tobacco Use Types Packs/Day Years [...] encounter Progress Notes Judy Pittman RN - 09/22/2017 10:00 AM CDT RN Ground Crew Linesman Visit Pt: Timur Krishnamurthy Referred by: Gagandeep [...] 1,000 mg BID Tresiba (insulin degludec U-200) 24 units daily in PM ReliOn R 1.5 units per CHO choice Aspirin: yes - 81 mg daily Glucose meter: One Touch Ultra 2 CURRENT GLUCOSE PATTERNS: Rustam did not bring BG readings today Hypoglycemia (previous two weeks): none reported ASSESSMENT: Rustam was referred for care coordination services to assist with DM management and medication titration by Dr Hinojosa. This is a joint visit with ERLIN Salas Ground Crew Linesman. Both Lesly and Bucky noticed and commented that Rustam appears visibly more calm and less jittery today, he attributes this to cutting back on his caffeine consumption. Mental Health See note from ERLIN Salas Ground Crew Linesman for documentation. Insurance Rustam receives SSDI for his dx Bipolar Disorder. Despite an inability to afford his medical and prescription costs, he and his are over-income for MA. Rustam is aware that Jimena French has a Financial Assistance program to help cover clinic costs. Previously, Rustam met with Reina to apply for FA and came up with a payment plan for his outstanding charges. In the meantime, Rustam has met with aninsurance milk of lime slaker plans to enroll in a supplemental Medicare plan during open- enrollment later this year. He still has financial concerns about his medical appts, which is why has hasn't followed up with podiatry, as directed. I stressed the importance of following through with the recommended specialists, noting that it would be far more costly if his infection comes back and [facility] has to [facility]. Rustam agreed and I assisted with scheduling a podiatry appt. Medication Rustam is using a medication regimen of metformin, Tresiba U200 and [employer] Relion insulin to manage his T2DM, which is working well, when he remembers to take all his doses. He states he is making sureto take his Regular insulin 6 units BID 30 minutes before meals, but has not been counting CHO choices that are needed to calculate his unit/CHO dosing. I explained to Rustam that the unit/CHO ratio offers him the flexibility to adjust his dosing to cover his intake. If he chooses to use a set dose of Regular insulin, then he will need to make sure to eat a set amount of CHO, or he could risk hypo or hyperglycemia. Rustam states he understands. Blood Glucose Rustam did not bring in any BG readings today, he reports he ran out of test strips 2 days ago and hasn't been able to test. I provided a refill of test strips today, he denied needing lancets at this time. Rustam states he is bringing his glucometer and insulin to work. He reports he does better with ch ecking his BG and taking his insulin at work because he is more scheduled, but still struggles with both on a daily basis. I stressed the importance of taking all his insulin and medication as prescribed, along with checking his BG. Diet Rustam knows he needs to work on his diet, especially his CHO intake. He states he is trying to monitor his portions, but is not counting CHO. I reviewed what Rustam ate for breakfast this morning which was 2 eggs, turkey, and 3 slices of toast. We calculated that Rustam consuimed 3 CHO choices or 45 grams of CHO, requiring 4.5 units of Regular insulin. He took 6 units of insulin, which was more than heneeded and could cause hypoglycemia. Currently, Rustam states he feels fine and is not concerned. He asked about when he eats a cinnamon raisin bagel with cream cheese, I recommended Rustam look at the nutrition label on all the foods he is eating to find the CHO content in the serving he plans to eat or use an kaylee on his Smartphone. He agreed. Lesly and I also reminded Rustam to limit his caffeine intake to no more than 16 oz of coffee/diet soda per day to help relive the jitteriness. He should try tosubstitute water or Crystal Light. I reminded Rustam that caffeine in large quantities can increase his insulin resistance. Exercise Rustam reports he is doing better with his exercise because he is stretching and moving around while he is at work. While [facility], he wants to start playing basketball again. However, he struggles with motivation. I reminded Rustam of the importance of physical activity with glucose control and reducing manic energy. Smoking Cessation See note from Lesly Rodrigues, [facility] Ground Crew Linesman for documentation. Swelling The swelling in Rustam's LE has improved significantly. He currently has +2 edema in his L lower extremity only. Rustam showed me his foot ulcer, which I noted is completely scabbed over, without any signs of infection at this time. He is scheduled to receive foot/nail care at [facility] tomorrow. I reminded Rustam of the importance of following up with podiatry, as recommended by Dr Hinojosa. He understands the importance of protecting his feet. Follow-up Rustam reports he does best when he is held accountable and has close follow-up. Therefore, the plan is continue to follow up with Lesly every 2 weeks and meet with me monthly to review his DM. Rustam agrees with this plan and understands the goal is to focus on stabilizing his mental health. Family/social support: Patient attended today's visit alone. He currently lives with spouse. Current activity regimen: none Patient barrier(s) to learning identified: Finance and Emotional. BG Goals: Health Long-Term Lab Goal <7 Pre-meal: 70-130 mg/dL PPG: <180 mg/dL Bedtime: 90-150 mg/dL A1c: <7.0% Recommended testing frequency: Before meals and HS. Education content covered today: Mental Health Chronic Complications BG Monitoring Diet/CHO Counting Smoking Cessation Rustam received verbal instructions and written materials tailored to his preferred method of learning. Literacy level assessed (as appropriate). Interventions, including teach back, used to verify understanding. SHARED PLAN: Refill of test strips sent to [facility] in [place]. Scheduled podiatry follow up appt on 10/06/17. Continue regular mental health follow up appts and support groups. Continue current insulin and medication regimen, as prescribed. SMBG qid as directed, record readings. Limit caffeine intake to 16 oz per day. Follow up scheduled with Lesly on 10/06/17. Rustam to call if symptoms of hypoglycemia or readings < 70 mg/dL. Rustam verbalized understanding and agreed with plan of care and follow up. documented in this encounter Plan of Treatment Not on filedocumented as of this encounter Visit Diagnoses Diagnosis Health group home, active care coordinati on - Primary Uncontrolled type 2 diabetes mellitus wi th microalbuminuria, with long-term current use of insulin documented in this encounter Care Teams Dragger Out Relationship Specialty Start Date End Date Gagandeep Hinojosa MD PCP - General 05/17/[address] [place] [address] [place] [address] Vane Zarate Psychiatrist Psychiatry 03/22/12 [facility] Mental Health Psychotherapist 08/04/17 [facility] Tag Marker 09/13/17 documented as of this encounter
--- OUTSIDE RECORDS SUMMARY | 2022-02-12 12:05 | XMS_ITS | Encounter Summary ---
:1970 Author Organization [employer] Address [address], [place] [address] Care Team Providers Name Role Phone Gagandeep Hinojosa MD Primary Care Provider Reason for Visit Reason Comments [facility] Phone Visit Encounter Details Date Type Department Care Team Description 01/10/2018 Care Coord Phone [facility] Deborah Rodrigues, [facility] Phone Visit Medicine [facility] [address] [facility] . [address] [place] [address] [place] [address] [phone] Social History Tobacco Use Types Packs/Day Years Used Date Smoking Tobacco: Every Day Cigarettes 1 25 Smokeless Tobacco: Former Qu it: 10/25/2012 Comments: Smoking History Packs/day: Alcohol Use Standard Drinks/Week Comments No 0 (1 standard drink = 0.6 oz pure Alcoho lic Drinks/day: Amount:0; alcohol) Freq:Never; Sex Assigned at Date Recorded Not on file documented as of this encounter Progress Notes Deborah Rodrigues, [facility] - 01/10/2018 11:30 AM CDT Lab Instructor - Phone Call Contact with: Rustam Reason for call: Care Coordination Discussion/actions: Called Rustam to check-in, since his discharge yesterday (01/09). Rustam reports I got too narrow in my thinking, but said he is doing better now. Rustam agreed to a hospital discharge appointment with his PCP, followed by a [facility] appointment. Rustam got tearful at some points in the phone call, but denied any thoughts of suicide. Rustam denied any other concerns at this time. Shared plan: -PCP appointment 01/12 at 9:30. -[facility] appointment 01/12 at 10:00. Pt verbalized understanding and agreed with plan of care and follow up. documented in this encounter Plan of Treatment Not on filedocumented as of this encounter Visit Diagnoses Diagnosis Health fpc, active care coordinati on - Primary documented in this encounter Care Teams Mold Stripper Relationship Specialty Start Date End Date Gagandeep Hinojosa MD PCP - General 05/17/12 [address] [facility] [place] [address] Vane Zarate Psychiatrist Psychiatry 03/22/12 [facility] Mental Health Psychotherapist 08/04/17 [facility] Drill Runner Helper 09/13/17 documented as of this encounter
--- OUTSIDE RECORDS SUMMARY | 2022-02-12 12:05 | XMS_ITS | Encounter Summary ---
:1970 Author Organization [facility] Address [address] [address] Care Team Providers Name Role Phone Gagandeep Hinojosa MD Primary Care Provider Reason for Visit Reason Comments HC Face To Face Visit Encounter Details Date Type Department Care Team Description 11/04/2017 Care Coord Deborah Odom, [facility] Fa ce To Face Office Visit Medicine [facility] Visit [address] [facility]. [facility] [place] [address] [place] [address] [phone] Social History Tobacco Use Types Packs/Day Years [...] this encounter Progress Notes Deborah Rodrigues, [facility] - 11/04/2017 9:00 AM CDT Care Coordination Visit Pt: Timur Krishnamurthy Referred by: Gagandeep Hinojosa MD Reason for visit: Care Coordination Timur was seen alone. Discussion/actions: Met with Rustam for a scheduled [facility] appointment. He had a much calmer affect and stated that he started a new medication, I am calming down from being so high. Rustam stated that he has had increased anxiety, but he is pushing through it. He did miss work one day this week, due to an anxiety attack.Rustam also feels like the medication is making him scatterbrained, but he is followed up with psychiatrist, who encouraged him to continue taking the medication. Rustam wanted reassurance that this isnormal behavior. I process his feelings around how he has been doing, and encouraged him to continue following his doctor's orders. Rustam stated that he has been sleeping plenty and is taking all of his other medications as prescribed. Denied any thoughts of suicide. Rustam talked a lot about his relationship with his and the difficulties that he has been havingcommunication. Rustam stated that they often fight about money and she belittles him on a regular basis. He stated he is confident in the relationship, although he does doubt her commitment at times. Processed some of his feelings around this, and encouraged him to continue meeting with his therapiston a regular basis. Rustam stated that his physical health has been doing well and his blood sugars have been great. Hedenies any high or low blood sugar readings. He stated that the wound on his foot is good and he has no concerns about it. Rustam denied any other concerns at this time and scheduled a follow-up phonecheck-in next week. Scheduled a SW/RN Care Coordination meeting the following week. This note was produced using voice [...] bills. ?Goal: in process ? SHARED PLAN: - CM appointment 11/09 at 9:30. -SW Care Coordination phone check-in 11/11 at 8:00.?? -SW/RN Care Coordination appointment 11/17 at 9:00. -Therapy appointment weekly. Pt verbalized understanding and agreed with plan of care and follow up. documented in this encounter Plan of Treatment Not on filedocumented as of this encounter Visit Diagnoses Diagnosis Health detention, active care coordinati on - Primary documented in this encounter Care Teams Camera Prototyping Engineer Relationship Specialty Start Date End Date Gagandeep Hinojosa MD PCP - General 05/17/[address] [place] [address] [place] [address] Vane Zarate Psychiatrist Psychiatry 03/22/12 [facility] Mental Health Psychotherapist 08/04/17 [facility] Industrial Hygiene Manager 09/13/17 documented as of this encounter
--- OUTSIDE RECORDS SUMMARY | 2022-02-12 12:05 | XMS_ITS | Encounter Summary ---
:1970 Author Organization [employer] Address [address] [place] [address] Care Team Providers Name Role Phone Gagandeep Hinojosa MD Primary Care Provider Reason for Visit Reason Comments HC Face To Face Visit Encounter Details Date Type Department Care Team Description 09/01/2017 Care Coord Judy Luke RN [facility] Face To Face Office Visit Medicine [address] [facility] Visit [address] [place] [id number] Social History Tobacco Use Types Packs/Day Years [...] encounter Progress Notes Judy Pittman RN - 09/01/2017 11:00 AM CDT RN Plate Corrector Visit Pt: Timur Krishnamurthy Referred by: Gagandeep [...] One Touch Ultra 2 CURRENT GLUCOSE PATTERNS: did not bring BG readings today Hypoglycemia (previous two weeks): none reported ASSESSMENT: Rustam was referred for care coordination services to assist with DM management and medication titration by Dr Hinojosa. This is a joint visit with ERLIN Salas Plate Corrector. Mental Health Because of the complexity of Rustam's mental health, I recommended including ERLIN Salas Plate Corrector in our visits for additional support. Please see her note for documentation. Insurance Rustam receives SSDI for his dx Bipolar Disorder. Despite an inability to afford his medical and prescription costs, he and his are over-income for MA. Rustam is aware that Jimena French has a Financial Assistance program to help cover clinic costs. Previously, Rustam met with Reina to apply for and came up with a payment plan for his outstanding charges. In the meantime, Rustam has met with aninsurance nutrition director plans to enroll in a supplemental Medicare plan during open- enrollment later this year. Medication Rustam is using a medication regimen of metformin, Tresiba U200 and [employer] Relion insulin to manage his T2DM, which is working well when he remembers to take all his doses. Also, Rustam is taking a newer medication called Vraylar for his Bipolar disorder. He works with psychiatrist, Dr Huff, for medication management. Previously, we were concerned about the cost of Vraylar, but Rustam assures me he is currently receiving samples from Dr Huff and plans to use coupons to avoid using his Medicare dollars. Also, Rustam notes Dr Huff increased his Depakote dose from 2,500 mg to 3,000 mg daily last week. I updated his Medication List. Blood Glucose Rustam did not bring in any BG readings today. I congratulated Rustam again on his recent A1c result of 7.7%. This is Rustam's lowest A1c result since we started working together years ago. Rustam states he is bringing his glucometer and insulin to work. He reports he has lofty goals, including checkinghis BG and taking his insulin, but struggles with both on a daily basis. I stressed the importance of taking all his insulin and medication as prescribed, along with checking his BG. Diet Rustam knows he needs to work on his diet, especially his CHO intake. He is trying to monitor his portions. Because Rustam is manic, Lesly and I reminded him to limit his caffeine intake to no more than 16 oz of coffee/diet soda per day. He is trying to substitute water and Propel, although he notes Propel is more expensive than soda. Exercise Rustam reports he is doing a lot of walking at work, but [facility].He wants to do more, but struggles with motivation. I reminded Rustam of the importance of physical activity with glucose control and reducing manic energy. Smoking Cessation Rustam reports he is still smoking 10-15 cigarettes per day, down from 30-40 cigarettes per day. Also, he is smoking cigars and vaping. Rustam reports he is rolling his own cigarettes from pipe tobacco to save money. He knows quitting will help with both his mental and physical health. Rustam's target goal is to decrease to 5 cigarettes per day, with complete cessation by his birthday in December. Swelling Rustam previously reported increased swelling in his lower extremities. He saw Dr Hinojosa and was diagnosed with a diabetic foot ulcer, given antibiotics and a walking boot. Since then, Rustam was seen at the [facility] ED last Tuesday and dx with cellulitis, he continues to take antibiotics, and states he is feeling better. Rustam is not wearing the walking boot anymore and canceled his follow up appt with podiatry. He currently has +1 L ankle edema, notes cracked skin on his feet, and states his ulcer is healing. Rustam denies any signs of infection including redness, swelling, or pain. He understands theimportance of protecting his feet. Follow-up Rustam reports he does best when he is held accountable and has close follow-up. Therefore, he begin seeing Lesly every 2 weeks and meet with me monthly to review his DM. Rustam agrees with the plan to focus on stabilizing his mental health. Family/social support: Patient attended today's visit alone. He currently lives with spouse. Current activity regimen: none Patient barrier(s) to learning identified: Finance and Emotional. BG Goals: Health Mcfp Lab Goal <7 Pre-meal: 70-130 mg/dL PPG: [...] back, used to verify understanding. SHARED PLAN: Reschedule podiatry follow up appt. Continue regular mental health follow up appts and support groups. Continue current insulin and medication regimen, as prescribed. SMBG qid as directed, record readings. Limit caffeine intake to 16 oz per day. Follow up scheduled with Lesly on 09/09/17, bring readings. Rustam to call if symptoms of hypoglycemia or readings < 70 mg/dL. Rustam verbalized understanding and agreed with plan of care and follow up. documented in this encounter Plan of Treatment Not on filedocumented as of this encounter Visit Diagnoses Diagnosis Health long-term, active care coordinati on - Primary Uncontrolled type 2 diabetes mellitus wi th microalbuminuria, with long-term current use of insulin documented in this encounter Care Teams Associate Professor Of Kinesiology Relationship Specialty Start Date End Date Gagandeep Hinojosa MD PCP - General 05/17/12 [address] [place] [address] Vane Zarate Psychiatrist Psychiatry 03/22/12 [facility] Psychotherapist 08/04/17 documented as of this encounter
--- OUTSIDE RECORDS SUMMARY | 2022-02-12 12:05 | XMS_ITS | Encounter Summary ---
:1970 Author Organization [employer] Address [address] [place] [address] Care Team Providers Name Role Phone Gagandeep Hinojosa MD Primary Care Provider Reason for Visit Reason Comments Medication Request Encounter Details Date Type Department Care Team Description 09/20/2017 Telephone [facility] Gagandeep Hinojosa, Medication Request [address] [facility] [place] [address] [address] [facility] [phone] [place], [place] [address] (Wo rk) Social History Tobacco [...] documented as of this encounter Nursing Notes Zoie Stokes RN - 09/20/2017 8:26 AM CDT Renewed medication per medication refill protocol. Requested Prescriptions Pending Prescriptions Disp Refills ??? blood glucose (ONE TOUCH ULTRA BLUE) test strip 100 Strip 4 Sig: Use to test two times a day. Use as directed. Pharmacy dispense brand based on insurance. Pt last in for DM check- OV with PCP on 08/15/17; pt due back no later than 6 months, but being A1C is high, likely sooner; refilled requested test strips to cover 5 more months; PCP to address refill needs at next DM check. Juan Treviño - 09/20/2017 8:13 AM CDT Medications - Refill Request (unable to re-order) How many medications do you need refilled? (This is if patient has been prescribed this medication previously) Patient needs 1 medication refilled. Med #1 Name of Medication One Touch Ultra Test Strips Current Dosage of Medication na Directions for use of medication (how often does the pt take this medication) Use to test 2x daily Name of Prescribing clinician Gagandeep Hinojosa MD Additional comments (related to the above concern) Pt is requesting a 200 ammount. Pt is out of teststrips For this refill, patient would like it [...] on filedocumented in this encounter Care Teams Fiberglass Ski Maker Relationship Specialty Start Date End Date Gagandeep Hinojosa MD PCP - General 05/17/[address] [place] [address] [place] [address] Vane Zarate Psychiatrist Psychiatry 03/22/12 [facility] Psychotherapist 08/04/17 [facility] Agricultural Service Technician 09/13/17 documented as of this encounter
--- OUTSIDE RECORDS SUMMARY | 2022-02-12 12:05 | XMS_ITS | Encounter Summary ---
:1970 Author Organization [employer] Address [address] [place] [address] Care Team Providers Name Role Phone Gagandeep Hinojosa MD Primary Care Provider Reason for Visit Reason Comments HC Face To Face Visit Encounter Details Date Type Department Care Team Description 10/20/2017 Care Coord Judy Luke RN [facility] Face To Face Office Visit Medicine 1415 [facility] Visit [address] [place] [id number] Social History Tobacco Use Types Packs/Day Years [...] encounter Progress Notes Judy Pittman RN - 10/20/2017 9:00 AM CDT RN Gas Appliance Adjuster Visit Pt: Timur Krishnamurthy Referred by: Gagandeep [...] One Touch Ultra 2 CURRENT GLUCOSE PATTERNS: since 10/05/17 Fastin - 174, 209, 218 2 hours after largest meal: 104 - 173, 218, 237, 290 Hypoglycemia (previous two weeks): none ASSESSMENT: Rustam was referred for care coordination services to assist with DM management and medication titration by Dr Hinojosa. This is a joint visit with Lesly Rodrigues [facility] Gas Appliance Adjuster. Both Lesly and I noticed and commented that Rustam appears to be more relaxed this week, he is visibly morecalm and less jittery today. Rustam attributes this change to cutting back his caffeine consumption and the recent change in his medication. Mental Health See note from Lesly Rodrigues [facility] Gas Appliance Adjuster for documentation. Medication I reviewed Rustam's medication list, noting he discontinued taking Vraylar. Rustam is using a medication regimen of metformin, Tresiba U200 and [employer] Rel[employer] insulin to manage his T2DM, which is workingwell, when he remembers to take all his doses. He states he is making sure to take his Regular insulin 6 units BID 30 minutes before meals. Blood Glucose Rustam did remember to bring in his BG readings, I thanked him for bringing them in today. I noted that Rustam only missed 5 BG readings and only had 4 BG readings >200. I congratulated Rustam on his significantly improved glucose control. Rustam states he is bringing his glucometer and insulin to work. He reports he does better with checking his BG and taking his insulin at work because he is more scheduled. I stressed the importance of taking all his insulin and medication as prescribed, along withchecking his BG. Diet Rustam knows he needs to work on his diet, especially his CHO intake. He states he is trying to monitor his portions, but doesn't always remember to count CHO. Rustam reports he drank grape juice prior to his BG reading of 290. I reviewed the high CHO content of juice and recommended he eat the fruit vsdrink the juice. Overall, Rustam reports he likes to cook and is very excited to report that he foundhis ADA cookbook and plans to start cooking some of the lower CHO recipes. Lesly and I also remindedRustam to limit his caffeine intake to no more than 16 oz of coffee/diet soda per day to help relive the jitteriness, noting that caffeine in large quantities can increase his insulin resistance. Exercise Rustam reports he gets mild to moderate activity at work. He reports he has 4 free passes to work outor play basketball at the [facility], but it is free to walk around the track. Because Rustam struggles with motivation, I suggested he try incorporating walking just once a week into hisschedule, noting it won't cost him anything and will help him improve his glucose control. I reminded Rustam of the importance of physical activity with glucose control and reducing manic energy. Foot Care Rustam did follow up with podiatry, as directed. He was encouraged to inspect his feet daily, avoid going barefoot or stocking-footed, and use lotion on his feet daily. Rustam also received a prescription for diabetic shoes and inserts through [employer], he is excited to receive his first pair of [employer]. He also received foot care through [facility] and was advised to continue to go every 3 months. Smoking Cessation See note from Lesly Rodrigues, [facility] Gas Appliance Adjuster for documentation. Swelling The swelling in Rustam's LE has improved significantly. He currently has +1 edema in his L lower extremity only. Follow-up Rustam reports he does best when he is held accountable and has close follow-up. Therefore, he likes the plan is continue to follow up with Lesly every 2 weeks and meet with me monthly to review his DM. Family/social support: Patient attended today's visit alone. He currently lives with spouse. Current activity regimen: none Patient barrier(s) to learning identified: Finance and Emotional. BG Goals: [facility] Goal <7 Pre-meal: 70-130 mg/dL PPG: [...] current insulin and medication regimen, as prescribed. Continue regular mental health follow up appts and support groups. SMBG qid as directed, record readings. Count CHO choices trying to stay at 4 choices per meal, discontinue drinking juice. Increase activity, [facility]. Limit caffeine intake to 16 oz per day. Follow up scheduled with Lesly on 11/04/17. Rustam to call if symptoms of hypoglycemia or readings < 70 mg/dL. Rustam verbalized understanding and agreed with plan of care and follow up. documented in this encounter Plan of Treatment Not on filedocumented as of this encounter Visit Diagnoses Diagnosis Health chcf, active care coordinati on - Primary Type 2 diabetes mellitus with foot ulcer , with long-term current use of insulin (HRC) Bipolar I disorder (HRC) Bipolar I disorder, most recent episode (or current) unspecified documented in this encounter Care Teams Supervisor Policy Change Clerks Relationship Specialty Start Date End Date Gagandeep Hinojosa MD PCP - General 05/17/[address] [place] [address] [place] [address] Vane Zarate Psychiatrist Psychiatry 03/22/12 [facility] Psychotherapist 08/04/17 [facility] Dermatology Physician 09/13/17 documented as of this encounter
--- OUTSIDE RECORDS SUMMARY | 2022-02-12 12:05 | XMS_ITS | Encounter Summary ---
:1970 Author Organization [employer] Address [address] [address] Care Team Providers Name Role Phone Gagandeep Hinojosa MD Primary Care Provider Encounter Details Date Type Department Care Team Description 01/16/2018 Lab Visit [facility] Hyponatremia 14[address] [facility] . [place], [place] [id number] Social History Tobacco Use Types Packs/Day Years [...] Name Priority Date/Time Associated Diagnosis Comme nts BASIC METABOLIC Routine 01/16/2018 1:49 PM Hyponatremia Result s for this PANEL CDT procedure are i n the results section. documented in this encounter Results (ABNORMAL) Basic Metabolic Panel [...] - 01/16/2018 6:36 PM CDT Performed at [facility], [address] [place] [address] CLIA number [id number] Gagandeep Hinojosa MD LAB_1 Performing Organization Address City/State/ZIP Code Phon e Number PN SOFT [address] [place] [address] documented in this encounter Visit Diagnoses Diagnosis Hyponatremia Hyposmolality and/or hyponatremia documented in this encounter Care Teams Acid Remover Relationship Specialty Start Date End Date Gagandeep Hinojosa MD PCP - General 05/17/12 [address] [place], [place] [address] Vane Zarate Psychiatrsamantha Psychiatry 03/22/12 [facility] Psychotherapist 08/04/17 [facility] Pre Coder 09/13/17 documented as of this encounter
--- OUTSIDE RECORDS SUMMARY | 2022-02-12 12:05 | XMS_ITS | Encounter Summary ---
:1970 Author Organization [facility] Address [address], [place] [address] Care Team Providers Name Role Phone Gagandeep Hinojosa MD Primary Care Provider Reason for Visit Reason Comments [facility] Face To Face Visit Encounter Details Date Type Department Care Team Description 01/12/2018 Care Coord Deborah Odom, [facility] Fa ce To Face Office Visit Medicine [facility] Visit [address] [facility] [address] [place] [address] [phone] Social History Tobacco Use Types Packs/Day Years Used Date Smoking Tobacco: Every Day Cigarettes 1 25 Smokeless Tobacco: Former Qu it: 10/25/2012 Comments: Smoking History Packs/day: Alcohol Use Standard Drinks/Week Comments No 0 (1 standard drink = 0.6 oz pure Alcoho lic Drinks/day: Amount:0; alcohol) Freq:Never; Sex Assigned at Date Recorded Not on file documented as of this encounter Progress Notes Deborah Rodrigues, [facility] - 01/12/2018 10:00 AM CDT Care Coordination Visit Pt: Timur Krishnamurthy Referred by: Gagandeep Hinojosa MD Reason for visit: Care Coordination Timur was seen alone. Discussion/actions: Met with Rustam for a scheduled [facility] appointment. RN Bridge Contractor, Judy Pittman, was present for the appointment. Judy addressed Rustam's physical health and helped manage his diabetes. Rustam reports that his mood is been stable, I am on my way back, although he was tearful at times during the appointment. Rustam was fixated on the fact that his outpatient psychiatrist may change hismedications at the hospital put him on. I validated his feelings, but explained to him that his timein the hospital was for stabilization, and usually outpatient doctors will follow the lead of the hospitalist. We discussed different things that he can talk to his outpatient psychiatrist about duringhis next appointment. Rustam stated that he felt safe and is not having any thoughts of suicide. He was very proud of himself that he is not smoking, and wants to continue this. Rustam said that things with his are okay, and she continues to be somewhat supportive. Rustam is not working right now,although he is still employed at . He stated that he did not think he would ever go back there, but did not know if he should tell them. We discussed his feelings around this, and I encouraged him to let his employer know that he will not be returning. Rustam stated that upon discharge from the hospital, the talked about getting into an IOP day program, and he was hoping to go to [facility]. Rustam stated that he talk to them, but they do not accept Medicare, so he is planning on applying for [place]. I explained to Rustam that he is well over income guidelines for [place] or [place], so he would have to pay for private insurance. I encouraged him to discuss his options with his [facility] CM, who he is meeting with next week. Rustam also had concerns about the cost of his medication, although he is not eligible for medication assistance programs, because he is on Medicare. I again encouraged him to discuss his options with his CM, which he agreed to do. Rustam reports no other concerns at this time and scheduled a follow-up SW/RN HC appointment. He will call if he has concerns before this appointment in two weeks. This note was produced using voice recognition [...] bills. ?Goal: in process ? SHARED PLAN: -MH CM appointment 01/17 at 1:30. -Psychiatry appointment 01/19 at 6:00. -SW/RN Care Coordination appointment 01/26 at 10:00. -Therapy appointment weekly. ?? Pt verbalized understanding and agreed with plan of care and follow up. documented in this encounter Plan of Treatment Not on filedocumented as of this encounter Visit Diagnoses Diagnosis Health fpc, active care coordinati on - Primary documented in this encounter Care Teams Matcher Offbearer Relationship Specialty Start Date End Date Gagandeep Hinojosa MD PCP - General 05/17/12 [facility] [place] [address] Vane Zarate Psychiatrist Psychiatry 03/22/12 [facility] Health Psychotherapist 08/04/17 [facility] CM Restaurant Worker 09/13/17 documented as of this encounter
--- OUTSIDE RECORDS SUMMARY | 2022-02-12 12:06 | XMS_ITS | Encounter Summary ---
:1970 Author Organization [facility] Address [address] [address] Care Team Providers Name Role Phone Gagandeep Hinojosa MD Primary Care Provider Reason for Visit Reason Comments MEDICATION REACTION Encounter Details Date Type Department Care Team Description 04/26/2017 Nurse Triage [facility] Gagandeep Hinojosa, MEDIC ATION REACTION Medicine 1415 [facility] . [address] [facility] [place] [address] [place] [address] [phone] (Wo rk) Social History Tobacco Use Types Packs/Day Years Used Date Smoking Tobacco: Every Day Cigarettes 0.3 25 Smokeless Tobacco: Former Qu it: 10/25/2012 Comments: Smoking History Packs/day: Alcohol Use Standard Drinks/Week Comments No 0 (1 standard drink = 0.6 oz pure Alcoho lic Drinks/day: Amount:0; alcohol) Freq:Never; Sex Assigned at Date Recorded Not on file documented as of this encounter Nursing Notes Jacqueline Vizcaino - 04/26/2017 4:45 PM CST Pt informed ok to try the gum. EL ENGINE SPECIALIST Gagandeep Hinojosa MD - 04/26/2017 4:04 PM CST Please call pt. OK to try Nicorette gum EL ENGINE SPECIALIST Brielle Meza RN - 04/26/2017 3:41 PM CST Reason for Call: Requesting change in treatment plan. Next Steps: Document further recommendations and route to appropriate person or pool. Caller IS expecting a call back from Care Team. Additional Information: Pt asking if he can safely try some Nicotine Gum or patches to help quit smoking. Pt had stopped smoking for 12 days with Wellbutrin, until he broke down and briefly chewed a piece of the gum. That made him feel immense relief, but then he got very worried about the interactions of the gum with his other medications or diagnoses. Pt instead bought a pack of cigarettes today. Feels he could quit with a small amount of reinforcement from a tobacco cessation product, like gum. Reason for Disposition ??? Caller has NON-URGENT medication question about med that PCP prescribed and triager unable to answer question Protocols used: MEDICATION QUESTION [id number] Pt asking if he can use Nicotine Gum or patches as well as the Wellbutrin he is taking? Has had 12 days of not smoking until he bought cigarettes this morning. Has had no side effects from the Wellbutrin, aside from some blunting of his emotions. EL ENGINE SPECIALIST Pamela Neves - 04/26/2017 3:14 PM CST Pt is on Wellbutrin, and also started smoking cessation meds, has been smoke free for 12 days, then chewed some nicotine gum today around noon,and started to feel tingling and unclear thought and tremors, then bought a pack of cigarettes and since 6 am has smoked half pack . Wondering if Wellbutrin iscausing or if the nicotine gum caused? EL ENGINE SPECIALIST documented in this encounter Plan of Treatment Not on filedocumented as of this encounter Visit Diagnoses Not on filedocumented in this encounter Care Teams Insurance Claims Analyst Relationship Specialty Start Date End Date Gagandeep Hinojosa MD PCP - General 05/17/12 [facility] [place] [address] Vane Zarate Psychiatrist Psychiatry 03/22/12 documented as of this encounter
--- OUTSIDE RECORDS SUMMARY | 2022-02-12 12:06 | XMS_ITS | Encounter Summary ---
:1970 Author Organization [facility] Address [address], [place] [address] Care Team Providers Name Role Phone Gagandeep Hinojosa MD Primary Care Provider Reason for Referral Consult/Transfer Care (Routine) - Closed Specialty Diagnoses / Procedures Referred By Contact Refer red To Contact Diagnoses Diabetic ulcer of left midfoot associated with type 2 diabetes mellitus, limited to breakdown of skin (HRC) Gagandeep Hinojosa MD [address] [facility] [place] [address] Referral ID Status Reason Start Date Expiration Date Visits Requ ested Visits Authorized [id number] Closed 08/15/2017 11/14/2018 1 1 Scheduling Instructions Your provider has recommended an appoint ment with [facility]. You may call [phone] to sc hedule your appointment. If you do not schedule an appointment within the next 1 to 3 business days, we will call you to help arrange your appointment. We sugges t you call your health insurance company about your coverage and benefits for thi s appointment. Reason for Visit Reason Comments Diabetes CELLULITIS Encounter Details Date Type Department Care Team Description 08/15/2017 Office Visit Gagandeep Storm llmarissa type 2 diabetes mellitus without complication, without long-term current use of insulin (HRC) (Primary Dx); Romario Rubio MD Essential hypertension; [address] [facility] Bipolar I disorder (HRC); [address] Ave Diabetic ulcer of left midfoot associate d with type 2 diabetes mellitus, limited to breakdown of skin ([facility]); KATIANA Vigil [address] [place], [place] Type 2 diabetes mellitus wit h diabetic polyneuropathy, without long-term current use of insulin ([facility]); [phone] [id number] Type II diabetes mellitus with neurologi estrella manifestations ([facility]); [phone] Tobacco use dis order (Work) Social History Tobacco Use Types Packs/Day Years Used Date Smoking Tobacco: Every Day Cigarettes 1 25 Smokeless Tobacco: Former Qu it: 10/25/2012 Tobacco Cessation: Ready to Quit: No; Co unseling Given: No Comments: Smoking History Packs/day: Alcohol Use Standard Drinks/Week Comments No 0 (1 standard drink = 0.6 oz pure Alcoho lic Drinks/day: Amount:0; alcohol) Freq:Never; Sex Assigned at Date Recorded Not on file documented as of this encounter Last Filed Vital Signs Vital Sign Reading Time Taken Comments Blood Pressure 126/78 08/15/2017 9:01 AM CDT Pulse 64 08/15/2017 9:01 AM CDT Temperature - - Respiratory Rate - - Oxygen Saturation - - Inhaled Oxygen Concentration - - Weight 93 kg (205 lb) 08/15/2017 9:01 AM CDT Height - - Body Mass Index 29.41 04/05/2017 3:18 PM GREENSKEEPER documented in this encounter Progress Notes Gagandeep Hinojosa MD - 08/15/2017 9:25 AM CDT SUBJECTIVE: 47 y.o. male presents today for diabetes check. Aspirin:Continues to take aspirin daily. No stomach pains, no black or tarry stools. Blood pressure:Patient has not been checking blood pressures at home., No chest pain. and No dyspnea. Patient did not bring in outside blood pressure records. Blood sugars: Patient has been checking blood sugars. Blood sugars have been at goal. No symptomatichighs or lows. Patient Patient did not bring in outside records.. Cholesterol: Lipids have been at goal. No muscle aches or pains. Tobacco: Patient reports that he has been smoking Cigarettes. He has a 25.00 pack-year smoking history. He quit smokeless tobacco use about 4 years ago. Eye exam: Patient is up-to-date with eye exam. Patient does have a history of retinopathy. No blurryor double vision Foot exam: Patient does have a history of neuropathy and numbness and currently has an infected ulcer on the lateral aspect of his left foot Kidney health: does not have a history [...] MOUTH EVERY DAY 90 Tab 3 ??? Cariprazine HCl (VRAYLAR) 6 MG CAPS Take 6 mg by mouth daily. ??? Charcoal 260 MG Take 1 Tab by mouth two times a day. 180 Cap 3 ??? divalproex ER (DEPAKOTE ER) 250 MG 24 hour release tablet Take 10 Tabs by mouth daily. 900 Tab 3 ??? insulin degludec (TRESIBA FLEXTOUCH) 200 UNIT/ML SOPN Inject 22-24 Units subcutaneously daily. 9mL 6 ??? insulin pen needle (BD ULTRAFINE JANET) 32G X 4 MM Inject subcutaneously as needed for Blood Sugar >. 100 Each 11 ??? insulin regular (NOVOLIN R) 100 UNIT/ML injection Sliding scale 110 mL 0 ??? Insulin Syringe-Needle U-100 (INSULIN SYRINGE 31G X 5/16) 31G X 5/16 1 ML Inject 1 Each subcutaneously 4 times a day. 400 Each 3 ??? lisinopril (ZESTRIL) 10 MG tablet Take 1 Tab by mouth daily. 90 Tab 1 ??? LORazepam (ATIVAN) 1 MG tablet Take 1 Tab by mouth every 6 hours as needed for Anxiety. ??? ONE TOUCH ULTRA 2 meter Use to test 4 times a day. 1 Each 0 ??? ONETOUCH DELICA lancets Use to test 4 times a day. 400 Each 3 ??? ONETOUCH ULTRA CONTROL solution Use to test as needed. 1 Each 11 ??? QUEtiapine (SEROQUEL) 300 MG tablet Take 300 mg by mouth daily at bedtime. 06/03/2017: Received from: External Pharmacy Received Sig: TAKE ONE TABLET BY MOUTH AT BEDTIME 5 ??? amoxicillin-clavulanate (AUGMENTIN) 875-125 mg per tablet Take 1 Tab by mouth two times a day for 10 days. (Patient not taking: Reported on 08/15/2017) 20 Tab 0 ??? metFORMIN (GLUCOPHAGE) 500 MG tablet [...] comments Muscle spasm ??? Wellbutrin [Bupropion] Anxiety OBJECTIVE: Vital Signs: BP 126/78 (BP Location: Left Arm, BP Cuff Size: Adult Regular/Long) Pulse 64 Wt 205lb (93 kg) BMI 29.41 kg/m2 General: Alert, Oriented, NAD Head: Normocephalic. Eyes: [...] Feet: Exam of the foot is abnormal: He has more neuropathy on his left foot than right, and he has alaterally oriented ulceration starting at the lateral aspect of the left foot extending medially andMonofilament exam of the foot is abnormal: Hypoesthesia monofilament testing Labs: Lab Results Component Value Date HGBA1C 9.7 (H) 04/29/2017 UMICROALB 124.6 02/16/2017 CREATININE 0.70 (L) 04/29/2017 Lab Results Component Value Date CHOL 179 02/16/2017 CHOL 4.5 02/16/2017 HDL 40 02/16/2017 LDL 102 02/16/2017 TRI 185 (H) 02/16/2017 Lab Results Component Value Date ALT 17 04/29/2017 AST 21 04/29/2017 HGB A1C Date Value Ref Range Status 04/29/2017 9.7 (H) 4.0 - 5.6 % Final Hemoglobin A1C, POC Date Value Ref Range Status 09/15/2016 8.5 (A) 4 - 5.6 % Final Lab Results Component Value Date/Time HGB A1C 9.7 (H) 04/29/2017 1140 Hemoglobin A1C, POC 8.5 (A) 09/15/2016 1436 No components found for: GLUF Lab Results Component Value Date K 5.0 04/29/2017 CHLORIDE 98 09/07/2016 ASSESSMENT: 1. Type 2 diabetes, controlled 2. Hypertension, controlled 3. Hyperlipidemia, uncontrolled ICD-10-CM 1. Uncontrolled type 2 diabetes mellitus without complication, without long-term current use of insulin ([facility]) E11.65 POCT Glycosylated Hemoglobin (HB A1C) metFORMIN (GLUCOPHAGE) 500 MG tablet 2. Essential hypertension ([facility]) I10 metoprolol succinate (TOPROL XL) 50 MG 24 hour release tablet Electrolyte Panel Creatinine / GFR 3. Bipolar I disorder ([facility]) F31.9 4. Diabetic ulcer of left midfoot associated with type 2 diabetes mellitus, limited to breakdown of skin ([facility]) E11.621 Foot & Ankle/Podiatry Consult-Adult/Peds L97.421 5. Type 2 diabetes mellitus with diabetic polyneuropathy, without long-term current use of insulin ([facility]) E11.42 POCT Glycosylated Hemoglobin (HB A1C) Microalb/Creat Ratio Lipid Panel and Direct LDL(If Needed) 6. Type II diabetes mellitus with neurological manifestations ([facility]) E11.49 7. Tobacco use disorder ([facility]) F17.200 PLAN: 1. Podiatry referral, he may need to have his cholesterol medication modified The patient was discharged ambulatory and in stable condition. Diabetes measures: A1c Due: 6 months Foot Exam: with podiatry Eye exam: UTD, will be retrieved Cholesterol: six months Electrolytes: 6 months UMAR: 6 months Aspirin: yes Tobacco: yes documented in this encounter Plan of Treatment Scheduled Referrals Name Type Priority Associated Diagnoses Order S chedule Foot & Ankle/Podiatry Referral Routine Diabetic ulcer of l eft Ordered: 08/15/2017 Consult-Adult/Peds midfoot associated wit h type 2 diabetes mellitus, limited to breakdown of skin (HRC) documented as of this encounter Results (ABNORMAL) POCT Glycosylated Hemoglobin (HB A1C) (08/15/2017 8:43 AM CDT) [facility] gist Method Time Signature Glycosolated HGB 7.7 (H) 4.0 - 5.6 PN SOFT A1C (POC) % Comment: The Rapid A1c test is designed for monit oring patients with an established diagnosis of diabetes jasen litus. ??The rapid method is not suitable to establish the intial diagnosis of diabetes melitus. Specimen Anatomical Collection Method Collection Time Receive d Time (Source) Location / / Volume Laterality 08/15/2017 8:43 AM 8 8:43 CDT AM CDT Narrative PN SOFT - 08/15/2017 8:55 AM CDT Performed at [address] [address] CLIA number [id number] Gagandeep Hinojosa MD LAB_1 Performing Organization Address City/State/ZIP Code Phon e Number PN SOFT [address] [place] [address] [phone] documented in this encounter Visit Diagnoses Diagnosis Uncontrolled type 2 diabetes mellitus wi thout complication, without long-term current use of insulin - Primary Essential hypertension (HRC) Unspecified essential hypertension Bipolar I disorder (HRC) Bipolar I disorder, most recent episode (or current) unspecified Diabetic ulcer of left midfoot associate d with type 2 diabetes mellitus, limited to breakdown of skin (HRC) Type 2 diabetes mellitus with diabetic p olyneuropathy, without long-term current use of insulin (HRC) Type II diabetes mellitus with neurologi estrella manifestations (HRC) Type II or unspecified type diabetes jasen litus with neurological manifestations, not stated as uncontrolled Tobacco use disorder (HRC) Tobacco use disorder Hyperlipidemia, unspecified hyperlipidem ia type (HRC) Uncontrolled type 2 diabetes mellitus wi th diabetic polyneuropathy, with long-term current use of insulin Uncontrolled type 2 diabetes mellitus wi thout complication, without long-term current use of insulin documented in this encounter Care Teams Heel Cover Splitter Relationship Specialty Start Date End Date Gagandeep Hinojosa MD PCP - General 05/17/[address] [place] [address] [place] [address] Vane Zarate Psychiatrist Psychiatry 03/22/12 [facility] Mental [facility] Psychotherapist 08/04/17 documented as of this encounter
--- OUTSIDE RECORDS SUMMARY | 2022-02-12 12:06 | XMS_ITS | Encounter Summary ---
:1970 Author Organization [employer] Address [address] [place] [address] Care Team Providers Name Role Phone Gagandeep Hinojosa MD Primary Care Provider Encounter Details Date Type Department Care Team Description 04/29/2017 Lab Visit [facility] Need for prophylactic [address] [place] [address] Social History Tobacco Use Types Packs/Day Years [...] Name Priority Date/Time Associated Diagnosis Comme nts CREATININE / GFR Routine 04/29/2017 11:40 Need for Results for this AM HOOP MACHINE OPERATOR prophylactic procedure are i n chemotherapy the results section. COMPLETE BLOOD Routine 04/29/2017 11:40 Need for Results f or this COUNT-W/DIFF AM HOOP MACHINE OPERATOR prophylactic procedure are i n chemotherapy the results section. DIFFERENTIAL Routine 04/29/2017 11:40 Results for this AM HOOP MACHINE OPERATOR procedure are i n the results section. VALPROIC ACID Routine 04/29/2017 11:40 Need for Results fo r this (DEPAKENE) AM HOOP MACHINE OPERATOR prophylactic procedure are i n chemotherapy the results section. AMMONIA Routine 04/29/2017 11:40 Need for Results for this AM HOOP MACHINE OPERATOR prophylactic procedure are i n chemotherapy the results section. HGB A1C Routine 04/29/2017 11:40 Need for Results for this AM HOOP MACHINE OPERATOR prophylactic procedure are i n chemotherapy the results section. ALT (SGPT) Routine 04/29/2017 11:40 Need for Results for this AM HOOP MACHINE OPERATOR prophylactic procedure are i n chemotherapy the results section. AST Routine 04/29/2017 11:40 Need for Results for this AM HOOP MACHINE OPERATOR prophylactic procedure are i n chemotherapy the results section. SODIUM Routine 04/29/2017 11:40 Need for Results for this AM HOOP MACHINE OPERATOR prophylactic procedure are i n chemotherapy the results section. POTASSIUM Routine 04/29/2017 11:40 Need for Results for this AM HOOP MACHINE OPERATOR prophylactic procedure are i n chemotherapy the results section. CALL LIST QUESTIONS Routine 04/29/2017 11:33 Need for Resu lts for this AM HOOP MACHINE OPERATOR prophylactic procedure are i n chemotherapy the results section. documented in this encounter Results (ABNORMAL) Differential (04/29/2017 11:40 AM HOOP MACHINE OPERATOR) Analysis Performed At Patho logist Time Signature Absolute 5.2 1.8 - 8.0 PN SOFT Neutrophils k/cmm Absolute 2.5 1.1 - 4.0 PN SOFT Lymphocytes k/cmm Absolute 1.1 (H) 0.2 - 0.8 PN SOFT Monocytes k/cmm Absolute 0.0 0.0 - 0.5 PN SOFT Eosinophils k/cmm Absolute 0.0 0.0 - 0.2 PN SOFT Basophils k/cmm Specimen Anatomical Collection Method Collection Time Receive d Time (Source) Location / / Volume Laterality 04/29/2017 11:40 04/29/2017 AM HOOP MACHINE OPERATOR 11:40 AM HOOP MACHINE OPERATOR Narrative PN SOFT - 04/29/2017 11:44 AM HOOP MACHINE OPERATOR Performed at [facility], [address] [place], [place] [id number] CLIA number [id number] .Results faxed to [phone], 04/30/2017,07:05, by GIOVANY.Results faxed to ?? Dr. Vane Zarate ?? [phone], 04/29/2017,11:46, by [facility] Vane Zarate MD LAB_1 Performing Organization Address City/State/ZIP Code Phon e Number PN SOFT [address] [place] [address] Ammonia (04/29/2017 11:40 AM HOOP MACHINE OPERATOR) athologist Signature Ammonia, Blood 30 0 - 44 PN SOFT umol/L Specimen Anatomical Collection Method Collection Time Receive d Time (Source) Location / / Volume Laterality 04/29/2017 11:40 04/29/2017 2:56 AM HOOP MACHINE OPERATOR PM HOOP MACHINE OPERATOR Narrative PN SOFT - 04/29/2017 4:09 PM HOOP MACHINE OPERATOR Performed at [facility], [address] [id number] CLIA number [id number] .Results faxed to [phone], 04/30/2017,07:05, by GIOVANY.Results faxed to ?? Dr. Vane Zarate ?? [phone], 04/29/2017,11:46, by [facility] Joey Zarate MD LAB_1 Performing Organization Address [facility] Phon e Number PN SOFT [address] [place] [address] Potassium (04/29/2017 11:40 AM HOOP MACHINE OPERATOR) athologist Signature Potassium 5.0 3.5 - 5.2 PN SOFT mmol/L Specimen Anatomical Collection Method Collection Time Receive d Time (Source) Location / / Volume Laterality 04/29/2017 11:40 04/29/2017 2:30 AM HOOP MACHINE OPERATOR PM HOOP MACHINE OPERATOR Narrative PN SOFT - 04/29/2017 3:23 PM HOOP MACHINE OPERATOR Performed at [facility], [address] [place] [address] CLIA number [id number] .Results faxed to [phone], 04/30/2017,07:05, by GIOVANY.Results faxed to ?? Dr. Vane Zarate ?? [phone], 04/29/2017,11:46, by [facility]KY Joey Zarate MD LAB_1 Performing Organization Address [facility] Phon e Number PN SOFT [address] [place] [address] (ABNORMAL) Sodium (04/29/2017 11:40 AM HOOP MACHINE OPERATOR) athologist Signature Sodium 135 (L) 136 - 145 PN SOFT mmol/L Specimen Anatomical Collection Method Collection Time Receive d Time (Source) Location / / Volume Laterality 04/29/2017 11:40 04/29/2017 2:30 AM HOOP MACHINE OPERATOR PM HOOP MACHINE OPERATOR Narrative PN SOFT - 04/29/2017 3:23 PM HOOP MACHINE OPERATOR Performed at [facility], [address] [place] [address] CLIA number [id number] .Results faxed to [phone], 04/30/2017,07:05, by GIOVANY.Results faxed to ?? Dr. Vane Zarate ?? [phone], 04/29/2017,11:46, by [facility] Joey Zarate MD LAB_1 Performing Organization Address [facility] Phon e Number PN SOFT [address] [place] [address] Valproic Acid (Depakene) (04/29/2017 11:40 AM HOOP MACHINE OPERATOR) Analysis Performed At [facility] Time Signature Date Last Dose apr 29 2017 PN SOFT Valproic Acid Time Last Dose 8:0 PN SOFT Valproic Acid Valproic 51 50 - 100 PN SOFT Acid/Depakene ug/mL (Valp) Specimen Anatomical Collection Method Collection Time Receive d Time (Source) Location / / Volume Laterality 04/29/2017 11:40 04/29/2017 3:01 AM HOOP MACHINE OPERATOR PM HOOP MACHINE OPERATOR Narrative PN SOFT - 04/29/2017 3:24 PM HOOP MACHINE OPERATOR Performed at [facility], [address] [place] [address] CLIA number [id number] .Results faxed to [phone], 04/30/2017,07:05, by GIOVANY.Results faxed to ?? Dr. Vane Zarate ?? [phone], 04/29/2017,11:46, by [facility] Joey Zarate MD LAB_1 Performing Organization Address [facility] Phon e Number PN SOFT [address] [place] [address] (ABNORMAL) Creatinine / GFR (04/29/2017 11:40 AM HOOP MACHINE OPERATOR) Analysis Performed At Patho logist Time Signature [...] Time (Source) Location / / Volume Laterality 04/29/2017 11:40 04/29/2017 2:30 AM HOOP MACHINE OPERATOR PM HOOP MACHINE OPERATOR Narrative PN SOFT - 04/29/2017 3:23 PM HOOP MACHINE OPERATOR Performed at [facility], [address] [place], [place] [id number] CLIA number [id number] .Results faxed to [phone], 04/30/2017,07:05, by GIOVANY.Results faxed to ?? Dr. Vane Zarate ?? [phone], 04/29/2017,11:46, by [facility] Joey Zarate MD LAB_1 Performing Organization Address City/State/ZIP Code Phon e Number PN SOFT [address] [place] [phone] (ABNORMAL) Hgb A1c (04/29/2017 11:40 AM HOOP MACHINE OPERATOR) athologist Signature HGB A1C 9.7 (H) 4.0 - 5.6 % PN SOFT Specimen Anatomical Collection Method Collection Time Receive d Time (Source) Location / / Volume Laterality 04/29/2017 11:40 04/29/2017 3:01 AM HOOP MACHINE OPERATOR PM HOOP MACHINE OPERATOR Narrative PN SOFT - 04/29/2017 10:26 PM HOOP MACHINE OPERATOR Performed at [facility], [facility] [place] [address] CLIA number [id number] .Results faxed to [phone], 04/30/2017,07:05, by GIOVANY.Results faxed to ?? Dr. Vane Zarate ?? [phone], 04/29/2017,11:46, by [facility] Joey Zarate MD LAB_1 Performing Organization Address [facility] Phon e Number PN SOFT [address] [place] [address] Alanine Aminotransferase - ALT (SGPT) (04/29/2017 11:40 AM HOOP MACHINE OPERATOR) [facility] gist Method Time Signature Alanine 17 9 - 55 PN SOFT Aminotransferase U/L Specimen Anatomical Collection Method Collection Time Receive d Time (Source) Location / / Volume Laterality 04/29/2017 11:40 04/29/2017 2:30 AM HOOP MACHINE OPERATOR PM HOOP MACHINE OPERATOR Narrative PN SOFT - 04/29/2017 3:23 PM HOOP MACHINE OPERATOR Performed at [facility], [address] [place] [address] CLIA number [id number] .Results faxed to [phone], 04/30/2017,07:05, by GIOVANY.Results faxed to ?? Dr. Vane Zarate ?? [phone], 04/29/2017,11:46, by [facility] Joey Zarate MD LAB_1 Performing Organization Address [facility] Phon e Number PN SOFT [address] [place] [address] Aspartate Aminotransferase - AST (04/29/2017 11:40 AM HOOP MACHINE OPERATOR) [facility] Method Time Signature Aspartate 21 10 - 40 PN SOFT Aminotransferase U/L Specimen Anatomical Collection Method Collection Time Receive d Time (Source) Location / / Volume Laterality 04/29/2017 11:40 04/29/2017 2:30 AM HOOP MACHINE OPERATOR PM HOOP MACHINE OPERATOR Narrative PN SOFT - 04/29/2017 3:23 PM HOOP MACHINE OPERATOR Performed at [facility], [facility] [address] [place] [address] CLIA number [id number] .Results faxed to [phone], 04/30/2017,07:05, by GIOVANY.Results faxed to ?? Dr. Vane Zarate ?? [phone], 04/29/2017,11:46, by [facility] Joey Zarate MD LAB_1 Performing Organization Address City/[facility] Code Phon e Number PN SOFT [address] [place] [address] CBC - Complete Blood Count-W/Diff (04/29/2017 11:40 AM HOOP MACHINE OPERATOR) athologist Signature White Blood Cell 8.8 3.8 - 11.0 PN SOFT Count k/cmm Red Blood Cell 5.48 4.20 - PN SOFT Count 5.90 m/cmm Hemoglobin 16.4 13.4 - PN SOFT 17.5 g/dL Hematocrit 46.4 39.0 - PN SOFT 51.0 % Mean Corpuscular 84.7 80.0 - PN SOFT Volume 100.0 fL RDW 12.1 11.0 - PN SOFT 15.0 % Platelet Count 241 140 - 450 PN SOFT k/cmm Specimen Anatomical Collection Method Collection Time Receive d Time (Source) Location / / Volume Laterality 04/29/2017 11:40 04/29/2017 AM HOOP MACHINE OPERATOR 11:40 AM HOOP MACHINE OPERATOR Narrative PN SOFT - 04/29/2017 11:44 AM HOOP MACHINE OPERATOR Performed at [facility], [address] [place] [address] CLIA number [id number] .Results faxed to [phone], 04/30/2017,07:05, by GIOVANY.Results faxed to ?? Dr. Vane Zarate ?? [phone], 04/29/2017,11:46, by [facility] Joey Zarate MD LAB_1 Performing Organization Address City/[facility] Phon e Number PN SOFT [address] [place] [address] Call List Questions (04/29/2017 11:33 AM HOOP MACHINE OPERATOR) athologist Signature Call Back Done PN SOFT Documented Specimen (Source) Anatomical Collection Method Collection Time Re ceived Time Location / / Volume Laterality 04/29/2017 11:33 AM HOOP MACHINE OPERATOR Narrative PN SOFT - 04/29/2017 11:33 AM HOOP MACHINE OPERATOR [place] [address] CLIA number [id number] Joey Zarate MD LAB_1 Performing Organization Address City/State/ZIP Code Phon e Number PN SOFT [address] [place] [address] documented in this encounter Visit Diagnoses Diagnosis Need for prophylactic chemotherapy Need for other prophylactic chemotherapy documented in this encounter Care Teams Custodian Relationship Specialty Start Date End Date Gagandeep Hinojosa MD PCP - General 05/17/12 [address] [place] [address] Vane Zarate Psychiatrsamantha Psychiatry 03/22/12 documented as of this encounter
--- OUTSIDE RECORDS SUMMARY | 2022-02-12 12:06 | XMS_ITS | Encounter Summary ---
:1970 Author Organization [employer] Address [address] [place] [address] Care Team Providers Name Role Phone Gagandeep Michaud MD Primary Care Provider Reason for Visit Reason Comments Refill atorvastatin (LIPITOR) 80 MG tablet [Pharmacy Med Name: ATORVASTATIN 80 MG TABLET] Encounter Details Date Type Department Care Team Description 07/28/2017 Refill Gagandeep Storm, Refil l (atorvastatin Medicine MD (LIPITOR) [address] 1415 [facility] [Pharmacy Med Name: Yaritza [place] [address] [place] [address] ATORVASTATIN 80 MG [phone] (Wo rk) TABLET]) Social History Tobacco Use Types Packs/Day Years [...] encounter Nursing Notes Shayy Haynes RN - 07/29/2017 1:39 PM CDT Renewed medication per medication refill protocol. Requested Prescriptions Pending Prescriptions Disp Refills atorvastatin (LIPITOR) 80 MG tablet [Pharmacy Med Name: ATORVASTATIN 80 MG TABLET] 90 Tab 3 Sig: TAKE 1 TABLET BY MOUTH EVERY DAY Interface, Out [email or web address] Prov Query - 07/28/2017 9:39 AM CDT atorvastatin (LIPITOR) 80 MG tablet [Pharmacy Med Name: ATORVASTATIN 80 MG TABLET] Medication started: 01/09/2014 Last ordered by SERGE RANKIN J: 05/17/2017 (72 days ago) QTY: 90, Refills: 1, Sig: take 1 tab bymouth daily. (changed but equivalent) -> The patient is requesting a renewal from a different pharmacy. -> Refill x 12 months, qty: 90, refills: 3 (until due for an office visit) Last qualifying visit: 06/03/2017 (with GAGANDEEP MICHAUD) Next scheduled visit: 08/15/2017 (in Family Practice) Powered by [employer], Reference: [id number], 07/28/2017 9:39:43 AM CDT, Pool: MANUELNoni LANDAILL ([id number]) documented in this encounter Plan of Treatment Not on filedocumented as of this encounter Visit Diagnoses Diagnosis ASHD (arteriosclerotic heart disease) (H RC) Coronary atherosclerosis of unspecified type of vessel, [place] or graft Hyperlipidemia LDL goal < 70 Other and unspecified hyperlipidemia documented in this encounter Care Teams Emt Driver Relationship Specialty Start Date End Date Gagandeep Michaud MD PCP - General 05/17/[address] [place] [address] [place] [address] Vane Zarate Psychiatrist Psychiatry 03/22/12 documented as of this encounter
--- OUTSIDE RECORDS SUMMARY | 2022-02-12 12:06 | XMS_ITS | Encounter Summary ---
:1970 Author Organization [email or web address] Address [address] [place] [address] Care Team Providers Name Role Phone Gagandeep Hinojosa MD Primary Care Provider Reason for Visit Reason Comments Adverse Reaction wellbutrin Encounter Details Date Type Department Care Team Description 04/29/2017 Office Visit Gagandeep Stormani a ([facility]) (Primary Dx); Romario Rubio MD Tobacco use disorder; [address] 1415 [facility] Bipolar I disorder ([facility]) [place] [address] Ave [phone] [place] [address] Social History Tobacco Use Types Packs/Day Years [...] Sign Reading Time Taken Comments Blood Pressure 100/68 04/29/2017 10:32 AM 911 DISPATCHER Pulse 142 04/29/2017 10:32 AM 911 DISPATCHER Temperature - - Respiratory Rate - - Oxygen Saturation - - Inhaled Oxygen Concentration - - Weight - - Height - - Body Mass Index - - documented in this encounter Progress Notes Gagandeep Hinojosa MD - 04/29/2017 10:30 AM CST ICD-10-CM 1. Hypomania (HRC) F30.8 2. Tobacco use disorder ([facility]) F17.200 3. Bipolar I disorder ([facility]) F31.9 CHIEF COMPLAINT: Chief Complaint Patient presents with ??? Adverse Reaction wellbutrin SUBJECTIVE : Timur Krishnamurthy is an 47 y.o. male who presents for agitation. History on Wellbutrin in an attempt to discontinue smoking. He actually had fairly good response with abstinence for about 2 weeks, but began having complaints of insomnia. Seroquel ordered by psychiatrist for sleep. She also discontinued his Wellbutrin secondary to it's potential to predispose to hypomania or bipolar disorder. He hasnot found that Seroquel has been particularly helpful for his insomnia, and he is very apprehensive about declining into a hypomanic phase. He had difficulty going to work secondary to his symptoms. Hefinds that he is distracted, obsessive, and is very focused on not losing his job. He has used no alcohol. No illicit drugs. PROBLEM LIST: Patient Active Problem List Diagnosis Date Noted ??? Tobacco abuse ([facility]) 02/24/2016 ??? Tinea versicolor 07/18/2015 ??? Diabetic eye exam ([facility]) 12/12/2013 Overview Note: Eye exam done at [facility] on 12/12/13. Mild diabetic retinopathy in right eye. ??? Tobacco use disorder ([facility]) 10/26/2012 ??? Anemia 05/02/2012 Overview Note: Anemia, unspecified ??? Health nursing home, active care coordination 03/22/2012 Overview Note: Diving Fisher: JOSETTE Yippee [phone] Care coordination focus: T2DM, financial resources Living situation: lives with spouse Important notes: SSDI, significant insulin resistance, uses Relion insulin, commonly reaches Medicare Coverage Gap See care plan under Chart Review > [facility] Reports > [facility] CARE PLAN REPORT ??? Microalbuminuria 02/04/2012 ??? MA, old ([facility]) 09/16/2011 ??? History of PTCA 09/16/2011 Overview Note: History of PTCA 04/2011 BMS RCA ??? Obesity, Class I, BMI 30-34.9 ([facility]) 09/16/2011 Overview Note: Body mass index is 31.16 kg/(m^2). ??? Hyperlipidemia with target LDL less than 70 ([facility]) 06/08/2011 Overview Note: Hyperlipidemia LDL goal < 70 ??? ASHD (arteriosclerotic heart disease) ([facility]) 05/04/2011 ??? Erectile dysfunction 01/22/2011 Overview Note: side effect Risperdal ??? Type 2 diabetes mellitus, uncontrolled ([facility]) 12/11/2010 Overview Note: Type II or unspecified type diabetes mellitus without mention of complication, uncontrolled ([facility]) ??? Dermatophytosis of body 09/04/2010 Class: Historical Overview Note: Tinea Corporis ??? Coronary atherosclerosis ([facility]) 12/22/2009 Overview Note: LW Modifier: mod RCA, negative nuclear stress test ; CAD ??? Nonspecific abnormal results of liver function study 12/22/2009 Overview Note: Liver Function Tests Abnormal ??? Bipolar I disorder ([facility]) 09/15/2005 Overview Note: LW Onset: [id number] ; Bipolar I Dis FAMILY HISTORY OR SICK CONTACTS : No family history on file. SOCIAL HISTORY : Social History Substance Use Topics ??? Smoking status: Current Every Day Smoker Packs/day: 0.25 Years: 25.00 Types: Cigarettes ??? Smokeless tobacco: Former User Quit date: 10/25/2012 Comment: Smoking History Packs/day: ??? Alcohol use No Comment: Alcoholic Drinks/day: Amount:0; Freq:Never; MEDICATIONS : Outpatient Medications Prior to Visit Medication Sig Note Dispense Refill ??? aspirin 81 MG chewable tablet TAKE 1 TABLET BY MOUTH DAILY . 100 tablet 1 ??? atorvastatin (LIPITOR) 80 MG tablet Take 1 Tab by mouth daily. 90 Tab 3 ??? Charcoal 260 MG Take 1 Tab by mouth two times a day. 180 Cap 3 ??? divalproex (DEPAKOTE) 500 MG enteric coated tablet Take 3,000 mg by mouth. 07/09/2016: Taking 2,500mg QD ??? Insulin Degludec (TRESIBA FLEXTOUCH) 200 UNIT/ML SOPN Inject 84 Units subcutaneously daily. 9 mL6 ??? insulin pen needle (BD ULTRAFINE JANET) 32G X 4 MM Inject subcutaneously as needed for Blood Sugar >. 100 Each 11 ??? insulin regular (NOVOLIN R) 100 UNIT/ML injection Inject 67 Units subcutaneously two times a daybefore meals. 110 mL 0 ??? Insulin Syringe-Needle U-100 (INSULIN SYRINGE 31G X 16) 31G X 516 1 ML Inject 1 Each subcutaneously 4 times a day. 500 Each 3 ??? lisinopril (ZESTRIL) 10 MG tablet Take 1 Tab by mouth daily. 90 Tab 3 ??? metFORMIN (GLUCOPHAGE) 500 MG tablet Take 2 Tabs by mouth two times a day with meals for 90 days. 360 Tab 3 ??? metoPROLOL succinate (TOPROL XL) 50 MG 24 hour release tablet TAKE 1 TABLET BY MOUTH EVERY 24 HOURS 90 Tab 3 ??? ONE TOUCH ULTRA 2 meter Use to test 4 times a day. 1 Each 0 ??? ONETOUCH DELICA lancets Use to test 4 times a day. 400 Each 3 ??? ONETOUCH ULTRA CONTROL solution Use to test as needed. 1 Each 11 ??? risperiDONE (RISPERDAL) 4 MG tablet Take 4 mg by mouth daily (every 24 hours). 07/09/2016: 6 mg QD ??? buPROPion (WELLBUTRIN SR) 150 MG 12 hour release tablet TAKE 1 TABLET BY MOUTH TWICE DAILY 180 Tab 0 No facility-administered medications prior to visit. ALLERGIES: Allergies Allergen Reactions ??? Aripiprazole permanent shaking in left arm ??? Gabapentin Suicidal thoughts ??? Haloperidol Shock ??? Nitroglycerin Nausea And Vomiting ??? Thiothixene Other, see comments Muscle spasm ??? Wellbutrin [Bupropion] Anxiety OBJECTIVE : Gen.: Alert, cooperative, much more agitated than his baseline. He is pacing, sits, stands. He is able to focus conversationally, and is not tangential. Vital Signs: BP 100/68 Pulse (!) 142 Eyes: PERRLA, full EOM. No nystagmus. Throat: Moist oral mucosa, negative posterior pharynx Neck: Supple, without masses, lymphadenopathy or tenderness. Respiratory: Normal respiratory effort. Heart: RRR Abdomen: The abdomen was soft and nondistended, normal sounds present. No obvious masses or organomegaly. Extremities: He has no injuries suggestive of self injury Neurologic: Appearance: He is appropriately dressed in work clothing. Smells of smoke Motor ability: He is agitated, restless. However, no tremor Speech: Somewhat pressured, not tangential. Urgency is appreciated in the tone and timber of his voice Affect: Somewhat agitated, concerned. Thought content: Mostly focused on losing control. Thought process: Again very focused, somewhat circuitous in maintaining balance Intellectual capability: Average, slightly below Insight: Poor, but not dangerously at risk LABS : ASSESSMENT /PLAN ICD-10-CM 1. Hypomania (HRC) F30.8 2. Tobacco use disorder (HRC) F17.200 3. Bipolar I disorder (HRC) F31.9 Wellbutrin has been discontinued. He will continue his Depakote, and increased to 3000 mg daily. Heis not tolerant of major tranquilizers, declines use of lithium. At this point, he will not drive. Off work until 05/03/2017, contact by phone on 05/02/2017 Follow-up: Over the weekend of crisis develops. 911 DISPATCHER Gagandeep Hinojosa MD - 04/29/2017 10:30 AM CST LMTCB 911 DISPATCHER documented in this encounter Plan of Treatment Not on filedocumented as of this encounter Visit Diagnoses Diagnosis Hypomania (HRC) - Primary Bipolar I disorder, single manic episode , unspecified Tobacco use disorder (HRC) Tobacco use disorder Bipolar I disorder (HRC) Bipolar I disorder, most recent episode (or current) unspecified documented in this encounter Care Teams Louver Door Assembler Relationship Specialty Start Date End Date Gagandeep Hinojosa MD PCP - General 05/17/[address] [place] [address] [place] [address] Vane Zarate Psychiatrist Psychiatry 03/22/12 documented as of this encounter
--- OUTSIDE RECORDS SUMMARY | 2022-02-12 12:06 | XMS_ITS | Encounter Summary ---
:1970 Author Organization [employer] Address [address], [place] [address] Care Team Providers Name Role Phone Gagandeep Hinojosa MD Primary Care Provider Reason for Visit Reason Comments COUGH Encounter Details Date Type Department Care Team Description 04/04/2017 Nurse Triage [facility] Gagandeep Hinojosa MD COUGH 1415 [facility] . 1415 [facility] [place] [address] [place] [address] [phone] (Wo rk) Social History Tobacco Use Types Packs/Day Years Used Date Smoking Tobacco: Every Day Cigarettes 0.3 25 Smokeless Tobacco: Former Qu it: 10/25/2012 Comments: Smoking History Packs/day: Alcohol Use Standard Drinks/Week Comments No 0 (1 standard drink = 0.6 oz pure Alcoho lic Drinks/day: Amount:0; alcohol) Freq:Never; Sex Assigned at Date Recorded Not on file documented as of this encounter Nursing Notes Yoana Riley RN - 04/04/2017 11:59 AM CST Reason for Disposition ? ? Taking antibiotic < 48 hours (2 days) and fever still present (SAME) Protocols used: INFECTION ON ANTIBIOTIC FOLLOW-UP [id number] Patient calling and transferred to [facility] via ER line. States he was seen at [facility] over the weekend for his cough and reports he was told he could have COPD. Wanting to be tested for this and also seen in the clinic for smoking cessation. Requesting an appointment. States he started antibioticsand feeling the same. Denies worsening, feeling like he can't breathe or pass out. Nurse line scheduled appointment as requested. Agrees with plan and will call back sooner with other questions or concerns. Problem list reviewed as related to this call. Future Appointments Date Time Provider Department Center 04/05/2017 3:30 PM Gagandeep Hinojosa MD [facility] MANUEL HANGER documented in this encounter Plan of Treatment Not on filedocumented as of this encounter Visit Diagnoses Not on filedocumented in this encounter Care Teams Meter Calibrator Relationship Specialty Start Date End Date Gagandeep Hinojosa MD PCP - General 05/17/12 [facility] [place] [address] Vane Zarate Psychiatrist Psychiatry 03/22/12 documented as of this encounter
--- OUTSIDE RECORDS SUMMARY | 2022-02-12 12:06 | XMS_ITS | Encounter Summary ---
:1970 Author Organization [employer] Address [address] [place] [address] Care Team Providers Name Role Phone Gagandeep Hinojosa MD Primary Care Provider Encounter Details Date Type Department Care Team Description 04/29/2017 Notes/Orders [facility] Vane Zarate, Need for prophylactic [address] Dilip Bonds MD chemotherapy ([place] [address]) [phone] [address] [place], [place] [address] Social History Tobacco Use Types Packs/Day Years [...] on filedocumented as of this encounter Results Ammonia (04/29/2017 11:40 AM PUMP AND BLOWER OPERATOR) athologist Signature Ammonia, Blood 30 0 - 44 PN SOFT umol/L Specimen Anatomical Collection Method Collection Time Receive d Time (Source) Location / / Volume Laterality 04/29/2017 11:40 04/29/2017 2:56 AM PUMP AND BLOWER OPERATOR PM PUMP AND BLOWER OPERATOR Narrative PN SOFT - 04/29/2017 4:09 PM PUMP AND BLOWER OPERATOR Performed at [facility], [facility] [place] [address] CLIA number [id number] .Results faxed to [phone], 04/30/2017,07:05, by GIOVANY.Results faxed to ?? Dr. Vane Zarate ?? [phone], 04/29/2017,11:46, by [facility] Joey Zarate MD LAB_1 Performing Organization Address [facility] Phon e Number PN SOFT [address] [place] [address] Potassium (04/29/2017 11:40 AM PUMP AND BLOWER OPERATOR) P athologist Signature Potassium 5.0 3.5 - 5.2 PN SOFT mmol/L Specimen Anatomical Collection Method Collection Time Receive d Time (Source) Location / / Volume Laterality 04/29/2017 11:40 04/29/2017 2:30 AM PUMP AND BLOWER OPERATOR PM PUMP AND BLOWER OPERATOR Narrative PN SOFT - 04/29/2017 3:23 PM PUMP AND BLOWER OPERATOR Performed at [facility], [address] [place] [address] CLIA number [id number] .Results faxed to [phone], 04/30/2017,07:05, by GIOVANY.Results faxed to ?? Dr. Vane Zarate ?? [phone], 04/29/2017,11:46, by [facility] Joey Zarate MD LAB_1 Performing Organization Address [facility] Phon e Number PN SOFT [address] [place] [address] (ABNORMAL) Sodium (04/29/2017 11:40 AM PUMP AND BLOWER OPERATOR) P athologist Signature Sodium 135 (L) 136 - 145 PN SOFT mmol/L Specimen Anatomical Collection Method Collection Time Receive d Time (Source) Location / / Volume Laterality 04/29/2017 11:40 04/29/2017 2:30 AM PUMP AND BLOWER OPERATOR PM PUMP AND BLOWER OPERATOR Narrative PN SOFT - 04/29/2017 3:23 PM PUMP AND BLOWER OPERATOR Performed at [facility], [address] [place] [address] CLIA number [id number] .Results faxed to [phone], 04/30/2017,07:05, by GIOVANY.Results faxed to ?? Dr. Vane Zarate ?? [phone], 04/29/2017,11:46, by [facility] Joey Zarate MD LAB_1 Performing Organization Address [facility] Phon e Number PN SOFT [address] [place] [address] [phone] Valproic Acid (Depakene) (04/29/2017 11:40 AM PUMP AND BLOWER OPERATOR) Analysis Performed At [facility] Time Signature Date Last Dose apr 29 2017 PN SOFT Valproic Acid Time Last Dose 8:0 PN SOFT Valproic Acid Valproic 51 50 - 100 PN SOFT Acid/Depakene ug/mL (Valp) Specimen Anatomical Collection Method Collection Time Receive d Time (Source) Location / / Volume Laterality 04/29/2017 11:40 04/29/2017 3:01 AM PUMP AND BLOWER OPERATOR PM PUMP AND BLOWER OPERATOR Narrative PN SOFT - 04/29/2017 3:24 PM PUMP AND BLOWER OPERATOR Performed at [address] [address] CLIA number [id number] .Results faxed to [phone], 04/30/2017,07:05, by GIOVANY.Results faxed to ?? Dr. Vane Zarate ?? [phone], 04/29/2017,11:46, by [facility] Joey Zarate MD LAB_1 Performing Organization Address [facility] Phon e Number PN SOFT [address] [place] [address] [phone] (ABNORMAL) Creatinine / GFR (04/29/2017 11:40 AM PUMP AND BLOWER OPERATOR) Analysis Performed At [facility] Time Signature Creatinine 0.70 (L) 0.73 - [...] Volume Laterality 04/29/2017 11:40 04/29/2017 2:30 AM PUMP AND BLOWER OPERATOR PM PUMP AND BLOWER OPERATOR Narrative PN SOFT - 04/29/2017 3:23 PM PUMP AND BLOWER OPERATOR Performed at [facility], [address] [place] [id number] CLIA number [id number] .Results faxed to [phone], 04/30/2017,07:05, by GIOVANY.Results faxed to ?? Dr. Vane Zarate ?? [phone], 04/29/2017,11:46, by [facility] Joey Zarate MD LAB_1 Performing Organization Address [facility] Code Phon e Number PN SOFT [address] [place] [address] (ABNORMAL) Hgb A1c (04/29/2017 11:40 AM PUMP AND BLOWER OPERATOR) P athologist Signature HGB A1C 9.7 (H) 4.0 - 5.6 % PN SOFT Specimen Anatomical Collection Method Collection Time Receive d Time (Source) Location / / Volume Laterality 04/29/2017 11:40 04/29/2017 3:01 AM PUMP AND BLOWER OPERATOR PM PUMP AND BLOWER OPERATOR Narrative PN SOFT - 04/29/2017 10:26 PM PUMP AND BLOWER OPERATOR Performed at [facility], [address] [place] [address] CLIA number [id number] .Results faxed to [phone], 04/30/2017,07:05, by GIOVANY.Results faxed to ?? Dr. Vane Zarate ?? [phone], 04/29/2017,11:46, by [facility] Joey Zarate MD LAB_1 Performing Organization Address [facility] Phon e Number PN SOFT [address] [place] [address] Alanine Aminotransferase - ALT (SGPT) (04/29/2017 11:40 AM PUMP AND BLOWER OPERATOR) Patholo gist Method Time Signature Alanine 17 9 - 55 PN SOFT Aminotransferase U/L Specimen Anatomical Collection Method Collection Time Receive d Time (Source) Location / / Volume Laterality 04/29/2017 11:40 04/29/2017 2:30 AM PUMP AND BLOWER OPERATOR PM PUMP AND BLOWER OPERATOR Narrative PN SOFT - 04/29/2017 3:23 PM PUMP AND BLOWER OPERATOR Performed at [facility], [address] [place] [address] CLIA number [id number] .Results faxed to [phone], 04/30/2017,07:05, by GIOVANY.Results faxed to ?? Dr. Vane Zarate ?? [phone], 04/29/2017,11:46, by [facility] Joey Zarate MD LAB_1 Performing Organization Address [facility] Code Phon e Number PN SOFT [address] [place] [address] Aspartate Aminotransferase - AST (04/29/2017 11:40 AM PUMP AND BLOWER OPERATOR) Patholo gist Method Time Signature Aspartate 21 10 - 40 PN SOFT Aminotransferase U/L Specimen Anatomical Collection Method Collection Time Receive d Time (Source) Location / / Volume Laterality 04/29/2017 11:40 04/29/2017 2:30 AM PUMP AND BLOWER OPERATOR PM PUMP AND BLOWER OPERATOR Narrative PN SOFT - 04/29/2017 3:23 PM PUMP AND BLOWER [place]PER[place] [address] CLIA number [id number] .Results faxed to [phone], 04/30/2017,07:05, by GIOVANY.Results faxed to ?? Dr. Vane Zarate ?? [phone], 04/29/2017,11:46, by [facility] Joey Zarate MD LAB_1 Performing Organization Address [facility] Phon e Number PN SOFT [address] [place] [address] [phone] CBC - Complete Blood Count-W/Diff (04/29/2017 11:40 AM PUMP AND BLOWER OPERATOR) P athologist Signature White Blood Cell 8.8 3.8 [...] / Volume Laterality 04/29/2017 11:40 04/29/2017 AM PUMP AND BLOWER OPERATOR 11:40 AM PUMP AND BLOWER OPERATOR Narrative PN SOFT - 04/29/2017 11:44 AM PUMP AND BLOWER OPERATOR Performed at [facility], [address] [place] [address] CLIA number [id number] .Results faxed to [phone], 04/30/2017,07:05, by GIOVANY.Results faxed to ?? Dr. Vane Zarate ?? [phone], 04/29/2017,11:46, by [facility] Joey Zarate MD LAB_1 Performing Organization Address [facility] Phon e Number PN SOFT [address] [place] [address] Call List Questions (04/29/2017 11:33 AM PUMP AND BLOWER OPERATOR) athologist Signature Call Back Done PN SOFT Documented Specimen (Source) Anatomical Collection Method Collection Time Re ceived Time Location / / Volume Laterality 04/29/2017 11:33 AM PUMP AND BLOWER OPERATOR Narrative PN SOFT - 04/29/2017 11:33 AM PUMP AND BLOWER OPERATOR Performed at [facility], [address] [place] [address] CLIA number [id number] Joey Zarate MD LAB_1 Performing Organization Address [facility] Phon e Number PN SOFT [address] [place] [address] documented in this encounter Visit Diagnoses Diagnosis Need for prophylactic chemotherapy - Sandra dorsey Need for other prophylactic chemotherapy Need for prophylactic chemotherapy Need for other prophylactic chemotherapy documented in this encounter Care Teams Supervisor Particleboard Relationship Specialty Start Date End Date Gagandeep Hinojosa MD PCP - General 05/17/[address] [place] [address] Vane Zarate Psychiatrist Psychiatry 03/22/12 documented as of this encounter
--- OUTSIDE RECORDS SUMMARY | 2022-02-12 12:06 | XMS_ITS | Encounter Summary ---
:1970 Author Organization [employer] Address [address] [place] [address] Care Team Providers Name Role Phone Gagandeep Hinojosa MD Primary Care Provider Reason for Visit Reason Comments Disease Registry Encounter Details Date Type Department Care Team Description 05/19/2017 Notes/Orders [facility] Gagandeep Hinojosa MD [address] [facility] . [facility] [facility] [address] [place] [address] [phone] (Wo rk) Social History Tobacco Use Types [...] on filedocumented in this encounter Care Teams Manual Training Teacher Relationship Specialty Start Date End Date Gagandeep Hinojosa MD PCP - General 05/17/12 [address] [facility] [address] Vane Zarate Psychiatrist Psychiatry 03/22/12 documented as of this encounter
--- OUTSIDE RECORDS SUMMARY | 2022-02-12 12:06 | XMS_ITS | Encounter Summary ---
:1970 Author Organization [employer] Address [address] [place] [address] Care Team Providers Name Role Phone Gagandeep Hinojosa MD Primary Care Provider Encounter Details Date Type Department Care Team Description 05/17/2017 Lab Visit [facility] Uncontrolled type [address] mellitus with diabetic [place] [address] polyneuropathy, with [phone] long-term curre nt use of insulin (HRC) Social History Tobacco Use Types Packs/Day Years [...] Name Priority Date/Time Associated Diagnosis Comme nts POCT GLYCOSYLATED STAT 05/17/2017 1:59 PM Uncontrolled type 2 Results for this HEMOGLOBIN (HB A1C) [employer] diabetes mellitus pro cedure are in with diabetic the results polyneuropathy, with section . long-term current use of insulin (HRC) EXTRA SERUM SEPARATOR STAT 05/17/2017 1:49 PM Results for this TUBE (YELLOW) [employer] procedure are in the results section. documented in this encounter Results (ABNORMAL) POCT Glycosylated Hemoglobin (HB A1C) (05/17/2017 1:59 PM HOGSHEAD MAT ASSEMBLER) [facility] gist Method Time Signature Glycosolated HGB 9.1 (H) 4.0 - 5.6 PN SOFT A1C (POC) % Comment: The Rapid A1c test is designed for monit oring patients with an established diagnosis of diabetes jasen litus. ??The rapid method is not suitable to establish the intial diagnosis of diabetes melitus. Specimen Anatomical Collection Method Collection Time Receive d Time (Source) Location / / Volume Laterality 05/17/2017 1:59 PM 8 1:58 [employer] PM [employer] Narrative PN SOFT - 05/17/2017 2:15 PM [employer] Performed at [facility], [address] [place] [id number] CLIA number [id number] Gagandeep Hinojosa MD LAB_1 Performing Organization Address [facility] Phon e Number PN SOFT [address] [place] [address] Extra Serum Separator Tube (yellow) (05/17/2017 1:49 PM [employer]GS[employer] MAT ASSEMBL[employer]) athologist Signature Extra SST Top Drawn PN SOFT Drawn Specimen (Source) Anatomical Location Collection Method / Collectio n Time Received Time / Laterality Volume Narrative PN SOFT - 05/17/2017 1:49 PM [employer] Performed at [facility], [address] [place] [address] CLIA number [id number] Gagandeep Hinojosa MD LAB_1 Performing Organization Address City/[facility] Phon e Number PN SOFT [address] [place] [address] documented in this encounter Visit Diagnoses Diagnosis Uncontrolled type 2 diabetes mellitus wi th diabetic polyneuropathy, with long-term current use of insulin documented in this encounter Care Teams Tool Profiling Machine Set Up Operator Relationship Specialty Start Date End Date Gagandeep Hinojosa MD PCP - General 05/17/[address] [place] [address] Vane Zarate Psychiatrist Psychiatry 03/22/12 documented as of this encounter
--- OUTSIDE RECORDS SUMMARY | 2022-02-12 12:06 | XMS_ITS | Encounter Summary ---
:1970 Author Organization [facility] Address [address] [place] [address] Care Team Providers Name Role Phone Gagandeep Hinojosa MD Primary Care Provider Reason for Visit Reason Comments [facility] Face To Face Visit Encounter Details Date Type Department Care Team Description 09/01/2017 Care Coord [facility] Deborah Rodrigues, [facility] Fa ce To Face Office Visit Medicine [facility] Visit [address] [facility] [place] [address] [place] [address] [phone] Social History Tobacco Use Types Packs/Day Years Used Date Smoking Tobacco: Every Day Cigarettes 1 25 Smokeless Tobacco: Former Qu it: 10/25/2012 Comments: Smoking History Packs/day: Alcohol Use Standard Drinks/Week Comments No 0 (1 standard drink = 0.6 oz pure Alcoho lic Drinks/day: Amount:0; alcohol) Freq:Never; Sex Assigned at Date Recorded Not on file documented as of this encounter Progress Notes Deborah Rodrigues, [facility] - 09/01/2017 11:00 AM CDT Care Coordination Visit Pt: Timur Krishnamurthy Referred by: Gagandeep Hinojosa MD Reason for visit: Care Coordination Timur was seen alone. Discussion/actions: Met with Rustam for joint appointment with RN Airplane Cover Maker, Judy Pittman. She address his physicalhealth concerns and ongoing diabetes management. I spoke with Rustam about his current mental health concerns and what we can do to better support him. Rustam talked a lot during the appointment and needed some redirection to stay on topic. He admits to being manic and tangental, but denies having anyracing thoughts. 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 Rustam feels like he is on the right medications now and is at about 70%. Rustam expressed a lot of concerns about being committed through the state again, and wants to work at [employer]. He has a follow-up psychiatric appointment in September, and will be seeing his psychiatrist monthly. Rustam also stated that he was approved for MH CM, and will be meeting with his new worker, Ksenia, on Tuesday at 10:30. Rustam agreed to sign a release of information, so I could communicate with her. Julius agreed meeting with Care Coordination every other week, to have more support around him. Rustam reports that he feels safe and does not have any thoughts of suicide. He is working at [employer], and is trying to make sure he maintains a good balance between work and home. Rustam has also been reducing his smoking, and has a quit date of 01/21, which she is really hoping to obtain. Rustam denied any other concerns at this time and schedule a follow-up [facility] appointment for next week. We willdiscuss how his MH CM appointment went. Patient barrier(s) to learning identified: Emotional. Patient received verbal instructions and written materials tailored to his or her preferred method of learning. Literacy level assessed (as appropriate). Interventions, including teach back, used to verify understanding. Patient Goal(s): 1. I want to have better mental health. Goal: in process 2. I want to pay my bills. Goal: in process SHARED PLAN: -MH CM appointment 09/06 at 10:30. -[facility] appointment 09/09 at 11:00. Pt verbalized understanding and agreed with plan of care and follow up. documented in this encounter Miscellaneous Notes Assessment & Plan Note - Deborah Rodrigues LICSW - 09/01/2017 11:38 AM CDT Associated Problem(s): Health assisted, active care coordination (Resolved 07/27/2018) Airplane Cover Maker: ERLIN Salas [phone] Care coordination focus: mental health Living situation: Lives with Important notes: mh case management starting documented in this encounter Plan of Treatment Not on filedocumented as of this encounter Visit Diagnoses Diagnosis Health assisted, active care coordinati on - Primary documented in this encounter Care Teams Stripping Shovel Oiler Relationship Specialty Start Date End Date Gagandeep Hinojosa MD PCP - General 05/17/12 [address] [facility] [place] [address] Vane Zarate Psychiatrist Psychiatry 03/22/12 [facility] Health Psychotherapist 08/04/17 documented as of this encounter
--- OUTSIDE RECORDS SUMMARY | 2022-02-12 12:06 | XMS_ITS | Encounter Summary ---
:1970 Author Organization [employer] Address [address] [place] [address] Care Team Providers Name Role Phone Gagandeep Hinojosa MD Primary Care Provider Reason for Visit Reason Comments Questions Encounter Details Date Type Department Care Team Description 08/06/2017 Telephone [facility] Gagandeep Hinojosa MD Questions [address] [facility] . [address] [facility] [place] [address] [place] [address] [phone] (Wo rk) Social History Tobacco Use Types Packs/Day Years Used Date Smoking Tobacco: Every Day Cigarettes 1 25 Smokeless Tobacco: Former Qu it: 10/25/2012 Comments: Smoking History Packs/day: Alcohol Use Standard Drinks/Week Comments No 0 (1 standard drink = 0.6 oz pure Alcoho lic Drinks/day: Amount:0; alcohol) Freq:Never; Sex Assigned at Date Recorded Not on file documented as of this encounter Nursing Notes Aviva Bucio RN - 08/06/2017 10:28 AM CDT Patient calling in. He was seen by yesterday and has a walking boot on. He has a diabetic ulcer on his left midfoot and is no antibiotic. He wanted to know if he has any walking restrictions. I advised him to use caution and do not see any notes regarding restrictions. Patient verbalizes understanding. Problem list reviewed as related to this call. Amber Rodrigues - 08/06/2017 10:03 AM CDT Pt calling with questions regarding cast on foot. Please advise. documented in this encounter Plan of Treatment Not on filedocumented as of this encounter Visit Diagnoses Not on filedocumented in this encounter Care Teams Technical Laboratory Asst Relationship Specialty Start Date End Date Gagandeep Hinojosa MD PCP - General 05/17/12 14[address] [facility] [place] [address] Vane Zarate Psychiatrist Psychiatry 03/22/12 [facility] Health Psychotherapist 08/04/17 documented as of this encounter
--- OUTSIDE RECORDS SUMMARY | 2022-02-12 12:06 | XMS_ITS | Encounter Summary ---
:1970 Author Organization [employer] Address [address] [place] [address] Care Team Providers Name Role Phone Gagandeep Hinojosa MD Primary Care Provider Encounter Details Date Type Department Care Team Description 08/15/2017 Lab Visit [facility] Hyperlipidemia, unspecified hyperlipidemia type; [address] Uncontrolled type 2 diabetes mellitus with diabetic polyneuropathy, with long- term current use of insulin (HRC); [place] [address] Uncontrolled type 2 diabetes mellitus without complication, without long-term current use of insulin (HRC) [phone] Social History Tobacco Use Types Packs/Day Years [...] Associated Diagnosis Comme nts ALBUMIN/CREAT RATIO Routine 08/15/2017 8:50 Uncontrolled type 2 Results for this AM CDT diabetes mellitus with proce dure are in diabetic the results polyneuropathy, with section . long-term current use of insulin (HRC) POCT GLYCOSYLATED STAT 08/15/2017 8:43 Uncontrolled type 2 Results for this HEMOGLOBIN (HB A1C) AM CDT diabetes mellitus pro cedure are in without complication, the re sults without long-term section. current use of insulin (HRC) LIPID PANEL AND Routine 08/15/2017 8:43 Hyperlipidemia, Result s for this DIRECT LDL(IF AM CDT unspecified procedure are in NEEDED) hyperlipidemia type the resu lts section. EXTRA SERUM STAT 08/15/2017 8:35 Results for this SEPARATOR TUBE AM CDT procedure are in (YELLOW) the results section. documented in this encounter Results (ABNORMAL) Microalb/Creat Ratio (08/15/2017 8:50 AM CDT) [facility] Method Time Signature Microalbumin 150.2 mg/L PN SOFT Urine U Creat Random 113 mg/dL PN SOFT Microalbumin/Crea 132.9 (H) 0.0 - PN SOFT tinine Ratio 30.0 Specimen Anatomical Collection Method Collection Time Receive d Time (Source) Location / / Volume Laterality Urine specimen 08/15/2017 8:50 AM 018 (specimen) CDT 11:33 AM CDT Narrative PN SOFT - 08/15/2017 12:05 PM CDT Performed at [facility], [address] [id number] CLIA number [id number] Gagandeep Hinojosa MD LAB_1 Performing Organization Address [facility] Phon e Number PN SOFT [address] [place], [place] [address] [phone] (ABNORMAL) POCT Glycosylated Hemoglobin (HB A1C) (08/15/2017 8:43 AM CDT) [facility] Method Time Signature Glycosolated HGB 7.7 (H) [...] - 08/15/2017 8:55 AM CDT Performed at [facility], [address] [place] [address] CLIA number [id number] Gagandeep Hinojosa MD LAB_1 Performing Organization Address [facility]/ZIP Code Phon e Number PN SOFT [address] [place] [address] (ABNORMAL) Lipid Panel and Direct LDL(If Needed) (08/15/2017 8:43 AM CDT) Patholo gist Method Time Signature Cholesterol 102 0 - 199 PN SOFT mg/dL Triglycerides 140 4 - 149 PN SOFT mg/dL HDL Cholesterol 34 (L) >39 mg/dL PN SOFT Cholesterol/HDL 3.0 PN SOFT Ratio Screen LDL Calculated 40 19 - 130 PN SOFT mg/dL Non HDL Chol, Calc 68 0 - 159 PN SOFT mg/dL Length Of Fast 1.0 PN SOFT Specimen Anatomical Collection Method Collection Time Receive d Time (Source) Location / / Volume Laterality 08/15/2017 8:43 AM 8 CDT 11:34 AM CDT Narrative PN SOFT - 08/15/2017 3:34 PM CDT Performed at [facility], [address] [place] [address] CLIA number [id number] Gagandeep Hinojosa MD LAB_1 Performing Organization Address [facility] Phon e Number PN SOFT [address] [place] [address] Extra Serum Separator Tube (yellow) (08/15/2017 8:35 AM CDT) athologist Signature Extra SST Top Drawn PN SOFT Drawn Specimen (Source) Anatomical Location Collection Method / Collectio n Time Received Time / Laterality Volume Narrative PN SOFT - 08/15/2017 8:35 AM CDT Performed at [facility], [address] [place] [address] CLIA number [id number] Gagandeep Hinojosa MD LAB_1 Performing Organization Address [facility] Phon e Number PN SOFT [address] [place] [address] documented in this encounter Visit Diagnoses Diagnosis Hyperlipidemia, unspecified hyperlipidem ia type (HRC) Uncontrolled type 2 diabetes mellitus wi th diabetic polyneuropathy, with long-term current use of insulin Uncontrolled type 2 diabetes mellitus wi thout complication, without long-term current use of insulin documented in this encounter Care Teams Plunger Shovel Operator Relationship Specialty Start Date End Date Gagandeep Hinojosa MD PCP - General 05/17/12 [address] [facility] [place] [address] Vane Zarate Psychiatrist Psychiatry 03/22/12 [facility] Mental [facility] Psychotherapist 08/04/17 documented as of this encounter
--- OUTSIDE RECORDS SUMMARY | 2022-02-12 12:06 | XMS_ITS | Encounter Summary ---
:1970 Author Organization [facility] [employer] Address [address], [place] [address] Care Team Providers Name Role Phone Gagandeep Hinojosa MD Primary Care Provider Reason for Visit Reason Comments [facility] Phone Visit [facility]R Encounter Details Date Type Department Care Team Description 05/10/2017 Care Coord Phone Reji Turner [facility] Phone Visit (HRR) Medicine Franck RN [address] [place] [address] [place], [place] [phone] [address] Social History Tobacco Use Types Packs/Day Years Used Date Smoking Tobacco: Every Day Cigarettes 0.3 25 Smokeless Tobacco: Former Qu it: 10/25/2012 Comments: Smoking History Packs/day: Alcohol Use Standard Drinks/Week Comments No 0 (1 standard drink = 0.6 oz pure Alcoho lic Drinks/day: Amount:0; alcohol) Freq:Never; Sex Assigned at Date Recorded Not on file documented as of this encounter Progress Notes Reji Robert RN - 05/10/2017 1:15 PM CST Pt is scheduled with you for hospital discharge on 05/17/17. Was flagged for HRR, has worked extensively with [facility]. Please let them know if there is any need for renewed [facility] involvement. Thank you. ETING PROGRAM MANAGER documented in this encounter Plan of Treatment Not on filedocumented as of this encounter Visit Diagnoses Not on filedocumented in this encounter Care Teams Agency Sales Representative Relationship Specialty Start Date End Date Gagandeep Hinojosa MD PCP - General 05/17/12 14[address] [facility] [place] [address] Vane Zarate Psychiatrist Psychiatry 03/22/12 documented as of this encounter
--- OUTSIDE RECORDS SUMMARY | 2022-02-12 12:06 | XMS_ITS | Encounter Summary ---
:1970 Author Organization [employer] Address [address] [place] [address] Care Team Providers Name Role Phone Gagandeep Hinojosa MD Primary Care Provider Reason for Referral Consult/Transfer Care (Routine) - Closed Specialty Diagnoses / Procedures Referred By Contact Refer red To Contact Diagnoses Uncontrolled type 2 diabetes mellitus with complication, with long-term current use of insulin Joce Foster MD [address] [facility] [place] [address] Referral ID Status Reason Start Date Expiration Date Visits Requ ested Visits Authorized [id number] Closed 05/17/2017 08/16/2018 1 1 Scheduling Instructions If scheduling assistance is needed, namrata dorman inquire with the medical office staff upon exiting your appointment or contact the ordering clinic for recommended locations. This recommended service/s may not be co tri by your insurance coverage. To find out your specific benefit coverage, please c all the number on your insurance card. ER OUT Reason for Visit Reason Comments Diabetes Encounter Details Date Type Department Care Team Description 05/17/2017 Office Visit Joce Daniels lled type 2 diabetes mellitus with complication, with long-term current use of insulin (HRC) (Primary Dx); Romario Juárez MD Essential hypertension; [address] [facility] Hyperlip idemia LDL goal < 70; [address] ASHD (arteriosclerotic heart disease); [place] [address] [place] Bipolar I disorder (HRC); [phone] [address] Tobacco use disorder Social History Tobacco Use Types Packs/Day Years [...] Sign Reading Time Taken Comments Blood Pressure 140/86 05/17/2017 2:29 PM TAILER OUT Pulse 106 05/17/2017 2:29 PM TAILER OUT Temperature - - Respiratory Rate - - Oxygen Saturation - - Inhaled Oxygen Concentration - - Weight 105.2 kg (232 lb) 05/17/2017 2:28 PM TAILER OUT Height - - Body Mass Index 33.29 04/05/2017 3:18 PM TAILER OUT documented in this encounter Progress Notes Joce Foster MD - 05/17/2017 12:00 PM CST NAME: SHARLENE VARNER MR#: [id number] CSN: [id number] AUTHENTICATING CLINICIAN: Joce Foster MD CONFIRM #: [id number] LOC: 1202 CLINIC PROGRESS NOTE DATE OF VISIT: 05/17/2017 : 1970 CHIEF COMPLAINT: Follow up diabetes. SUBJECTIVE: 47-year-old male with a history of type 2 diabetes with complications. He has a history of microalbuminuria and early peripheral neuropathy. He is checking his blood sugars about 2-4 times a day. He iscurrently treating with Tresiba 20 units daily, regular insulin sliding scale, metformin 1000 mg b.i.d., and aspirin. His A1c is not at goal today. His last eye exam was 11 months ago. He has a history of essential hypertension. His blood pressure is treated with lisinopril and metoprolol-XL. No chest pain, shortness of breath. His blood pressure is borderline today. He has hyperlipidemia. He is on Lipitor. No abnormal muscle aches or weakness. He has history of atherosclerotic coronary heart disease. He is on aspirin and statin therapy. No chest pain or shortness of breath. He has bipolar I disorder. He was hospitalized after having a manic episode from 04/30/2017 through 05/09/2017. He is currently taking Depakote, Seroquel, Risperdal, and lorazepam. He is followed by Psychiatry. 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 MEDS: Reviewed and updated in EMR. ALLERGIES: Reviewed and updated in EMR. PAST MEDICAL HISTORY: Reviewed and updated in EMR. SOCIAL HISTORY: Reviewed and updated in EMR. FAMILY HISTORY: Reviewed and updated in EMR. OBJECTIVE: Weight is 232. Blood pressure is 140/86. GENERAL: Alert and awake, in no acute distress, non-ill appearing. HEENT: NCAT. PERRLA. EOMI. Conjunctivae are clear. TMs are white and pearly. No effusion. Oral mucosa moist. No erythema or lesions. NECK: Supple. No lymphadenopathy. No thyromegaly. CARDIOVASCULAR: Regular rate and rhythm. No murmurs, rubs, or gallops. PULMONARY: Clear to auscultation bilaterally. No rales, wheezes, or rhonchi. EXTREMITIES: No cyanosis, clubbing, or edema. Positive pedal pulses noted. He does have some drynessand fissuring noted in the right foot. NEURO: Monofilament testing shows normal sensation bilateral feet. PSYCH: He is well kempt. He makes good eye contact. No thought disorder, pressured speech, or suicidal ideation. He is mildly anxious during our visit. ASSESSMENT: 1.Uncontrolled type 2 diabetes with complications of microalbuminuria and neuropathy. Plan: Will continue metformin 1000 mg b.i.d., aspirin, regular insulin sliding scale. Will increase Tresiba to 2 to24 units daily, and he has been referred to [facility] with helping better diabetes control. Should recheck in 3 months, earlier if his blood sugars are at goal. Also recommend yearly eye exam. 2.Essential hypertension. Plan: Continue lisinopril and metoprolol-XL. Continue monitoring blood pressure. If it is consistently above 140/90, would adjust medication. Otherwise, should recheck in 3 months, earlier if blood pressure is not at goal. 3.Hyperlipidemia. Plan: Continue Lipitor. Recheck in 3 months, earlier if having abnormal muscle aches or weakness. 4.Atherosclerotic coronary heart disease. Plan: Continue daily aspirin and treating his risk factors. Follow up if he is having chest pain or shortness of breath. 5.Bipolar disorder. Plan: Will continue following with Psychiatry regarding his medication management. Provided a note for work. Allow him to work up 25 hours per week, up to 8 hours per day, and he will readdress with his psychiatrist at their followup visit on 05/23/2017. Follow up immediately if having suicidal ideation. 6.Tobacco use disorder. Plan: The patient has returned it to smoking. At this point, he is not readyto quit and would consider nicotine replacement in the future if interested. MJW:MEDWendy C: CONFIRM #: [id number] ER OUT documented in this encounter Plan of Treatment Not on filedocumented as of this encounter Visit Diagnoses Diagnosis Uncontrolled type 2 diabetes mellitus wi th complication, with long-term current use of insulin - Primary Essential hypertension (HRC) Unspecified essential hypertension Hyperlipidemia LDL goal < 70 Other and unspecified hyperlipidemia ASHD (arteriosclerotic heart disease) (H RC) Coronary atherosclerosis of unspecified type of vessel, [place] g[place]ute or graft Bipolar I disorder (HRC) Bipolar I disorder, most recent episode (or current) unspecified Tobacco use disorder (HRC) Tobacco use disorder documented in this encounter Care Teams Special Projects Coordinator Relationship Specialty Start Date End Date Gagandeep Hinojosa MD PCP - General 05/17/12 [facility] [place] [address] Vane Zarate Psychiatrist Psychiatry 03/22/12 documented as of this encounter
--- OUTSIDE RECORDS SUMMARY | 2022-02-12 12:06 | XMS_ITS | Encounter Summary ---
:1970 Author Organization [employer] Address [address] [place] [address] Care Team Providers Name Role Phone Gagandeep Hinojosa MD Primary Care Provider Reason for Referral Consult/Transfer Care (Routine) - Closed Specialty Diagnoses / Procedures Referred By Contact Refer red To Contact Diagnoses Toenail fungus Type 2 diabetes mellitus with left diabetic foot ulcer (HRC) Gagandeep Hinojosa MD [facility] OUTP [address] [facility] [address] [place] [address] [place] [id number] Referral ID Status Reason Start Date Expiration Date Visits Requ ested Visits Authorized [id number] Closed 08/18/2017 02/14/2018 1 1 Scheduling Instructions If scheduling assistance is needed, namrata dorman inquire with the medical office staff upon exiting your appointment or contact the ordering clinic for recommended locations. This recommended service/s may not be co tri by your insurance coverage. To find out your specific benefit coverage, please c all the number on your insurance card. Reason for Visit Reason Comments [facility] Face To Face Visit Encounter Details Date Type Department Care Team Description 08/18/2017 Care Coord Judy Luke, [facility] Face To Face Office Visit Medicine [address] [facility] Visit [address] [id number] Social History Tobacco Use Types Packs/Day Years [...] encounter Progress Notes Judy Pittman RN - 08/18/2017 3:17 PM CDT I spoke directly with Dr Hinojosa. He agrees to the foot/nail care at [facility]. Order faxed to [facility] at [phone]. Judy Pittman RN - 08/18/2017 9:00 AM CDT RN Architecture Drafter Visit Pt: Timur Krishnamurthy Referred by: Gagandeep Hinojosa MD Reason for referral: Diabetes type 2 uncontrolled Most recent vitals signs: Wt Readings from Last 3 Encounters: 08/15/17 205 lb (93 kg) 08/05/17 213 lb (96.6 kg) 06/03/17 223 lb (101.2 kg) BP Readings from Last 3 Encounters: 08/15/17 126/78 08/05/17 134/82 06/03/17 122/84 Most recent lab results: [...] Touch Ultra 2 CURRENT GLUCOSE PATTERNS: since 08/06/17 Fastin, 98 - 185, 211, 210 2 hours after largest meal: 116 - 191, 237 Hypoglycemia (previous two weeks): none reported ASSESSMENT: Rustam was referred for care coordination services to assist with DM management and medication titration by Dr Hinojosa. Mental Health Immediately, I can see Rustam's mental health remains a concern as he is talking loudly across the lobby to another patient. He admits he is still struggling, but again, assures me he is not a danger tohimself or others. Rustam stated, I know when it is time to go to the hospital and I'm not there yet. He describes himself as revved up. Rustam continues to see his [facility] therapist every Tuesday and notes he doing his best to make sure he is getting 6-8 hours of sleep every night with the use of Seroquel. His psychiatrist, Dr Vane Huff, started him on a new medication called Vraylar, about 2 months ago. Rustam plans to email Dr Huff later today, providing an update on his ongoing maniaand expressing concern about cost of the medication. His next follow up appt with Dr Huff is 08/26/17. Rustam reports things are better at work, he is doing a better job respecting customer boundaries, focusing on being less intrusive and chatty. Work is very important to Rustam, both for a sense of purpose and to afford his car. He continues to work 3 days in a row with 4 days off, for a total of 24 hours per week. Rustam describes his feelings as being on a roller coaster and being afraid of swinging back into depression. We reviewed the multiple support systems Rustam currently has in place including monthly psychiatry, weekly therapy, weekly [facility], and [facility] walk-in every Tuesday. Rustam previously worked with Case Management through [facility] and we called [facility] together during our last visit. 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 Rustam understands that his mental healthis his top priority at this time, so we won't be making any significant changes to his treatment plan until he is feeling more stable. Because of the complexity of Rustam's mental health, I suggested including Lesly Rodrigues, [facility] Architecture Drafter in our visits for additional support. Rustam remembers Lesly and agrees it would be helpful to work with her again. Insurance Rustam receives SSDI for his dx Bipolar Disorder. He applied for MA-EPD and reports his application was denied because he and his are over-income. I reminded Rustam that Jimena French has a Financial Assistance program to help cover clinic costs, which he states he would like to pursue. Reina joined our visit and informed Rustam of his outstanding charges and agreed to help him apply for Financial Assistance, along with a payment plan. In the meantime, Rustam states he met with an property insurance agent last week and has decided to apply for a supplemental Medicare plan during open- enrollment later this year. Medication Rustam is supposed to be using a medication regimen of metformin, Tresiba U200 and [employer] Relion insulin to manage his T2DM. However, he admits he has still been sporadic with taking his insulin. Rustamhas been making sure to take his Regular insulin 30 minutes before eating, whenever he takes it. He estimates missing a few doses of Tresiba and averaging one dose of Regular insulin per day. Rustam states he does better with his insulin on work days because he is more organized. He notes he never misses doses of metformin. We also discussed the cost of Vraylar. Reportedly, it is very expensive and since Rustam hasn't seen much improvement, he is wondering if he should save his Medicare dollars for his insulin and go back to [facility]. I stressed the importance of not making any medication changes (or self medication) without discussing it with Dr Huff. Rustam agreed, stating he will email her today and follow her instructions. Thankfully, Rustam has a follow up appt scheduled a week from today. Blood Glucose I congratulated Rustam on being more consistent with checking his BG and his recent A1c result of 7.7%. This is Rustam's lowest A1c result since we started working together years ago. Rustam is bringing his glucometer and insulin to work. I thanked him for writing down his readings. Rustam reports he has lofty goals, including checking his BG and taking his insulin, that he struggles with on a daily basis. I stressed the importance of taking all his insulin and medication as prescribed and checking his BG. Diet Rustam continues to be fixated on losing weight, wanting to lose 50 lbs over the the next year because it will be better for his health. He knows he needs to work on his diet, especially his CHO intake.Because Rustam is so jittery, I reminded him to limit his caffeine intake to no more than 16 oz of coffee/diet soda per day. Exercise Rustam reports he is doing a lot of walking at work, but not walking at the [employer] anymore.He is interested in trying basketball. Rustam wants to do more, but has struggled with motivation. I reminded Rustam of the importance of physical activity with glucose control. Smoking Cessation Rustam reports he is smoking 10-15 cigarettes per day, down from 30-40 cigarettes per day. Also, he is smoking cigars and vaping. Rustam reports he is rolling his own cigarettes from pipe tobacco to savemoney. He knows quitting will help with both his mental and physical health. Rustam's target goal is to decrease to 5 cigarettes per day, with complete cessation by his birthday in December. Once his mental health has stabilized, I recommended Rustam try cutting back 1 cigarette every 14 days. Swelling Rustam previously reported increased swelling in his lower extremities. He saw Dr Hinojosa and was diagnosed with a diabetic foot ulcer, given antibiotics and a walking boot. Since then, Rustam was seen at the [facility] ED last Tuesday and dx with cellulitis, he continues to take antibiotics, and states he is feeling better. Rustam is not wearing the walking boot because he states they told him not to. However, he notes his toenails are long and sharp, needing to be trimmed. We discussed the importance offoot/nail care and I recommended he see [facility] at [facility] because of his DM, foot ulcer, and toenail fungus. Rustam agreed. Follow-up Rustam reports he does best when he is held accountable and has close follow-up. Therefore, he would like to meet with me regularly, every 2-3 weeks, until his mental health is stable and his A1c is at goal. I scheduled a joint visit with Lesly Rodrigues in 2 weeks. Family/social support: Patient attended today's visit alone. [...] back, used to verify understanding. SHARED PLAN: Foot/nail care order - to Dr Hinojosa. Podiatry appt scheduled on 08/25/17. Complete paperwork for [facility] today. Send email to Dr Huff about current sx and concerns about Vraylar cost. Continue regular mental health follow up appts and support groups. Continue current insulin and medication regimen, as prescribed. SMBG qid as directed, record readings. Limit caffeine intake to 16 oz per day. Follow up scheduled on 09/01/17, bring readings. Rustam to call if symptoms of hypoglycemia or readings < 70 mg/dL. Rustam verbalized understanding and agreed with plan of care and follow up. documented in this encounter Plan of Treatment Scheduled Referrals Name Type Priority Associated Diagnoses Order S chedule Wound Care Consult Referral Routine Toenail fungu s Ordered: 08/18/2017 Type 2 diabetes mellitus with left diabetic foot ulcer (HRC) documented as of this encounter Visit Diagnoses Diagnosis Toenail fungus - Primary Dermatophytosis of nail Type 2 diabetes mellitus with left diabe tic foot ulcer (HRC) Type II or unspecified type diabetes jasen litus with other specified manifestations, not stated as uncontrolled Health chcf, active care coordinati on Type 2 diabetes mellitus with microalbum inuria, with long-term current use of insulin (HRC) Bipolar I disorder (HRC) Bipolar I disorder, most recent episode (or current) unspecified documented in this encounter Care Teams Chief Compressor Station Engineer Relationship Specialty Start Date End Date Gagandeep Hinojosa MD PCP - General 05/17/12 [facility] [place] [address] Vane Zarate Psychiatrist Psychiatry 03/22/12 [facility] Mental Health Psychotherapist 08/04/17 documented as of this encounter
--- OUTSIDE RECORDS SUMMARY | 2022-02-12 12:06 | XMS_ITS | Encounter Summary ---
:1970 Author Organization [facility] Address [address] [place] [address] Care Team Providers Name Role Phone Gagandeep Michaud MD Primary Care Provider Reason for Visit Reason Comments Refill buPROPion (WELLBUTRIN SR) 15 0 MG 12 hour release tablet [Pharmacy Med Name: BUPROPION SR 150MG TABLETS ( 12 H)] Encounter Details Date Type Department Care Team Description 04/05/2017 Refill Gagandeep Storm Refil l (buPROPion Medicine (WELLBUTRIN SR) [address] 12 hour release tablet [place] [address] [place] [address] [Pharmacy Med Name: [phone] (Wo rk) BUPROPION SR 150MG TABLETS ( 12 H)]) Social History Tobacco Use Types Packs/Day Years Used Date Smoking Tobacco: Every Day Cigarettes 0.3 25 Smokeless Tobacco: Former Qu it: 10/25/2012 Comments: Smoking History Packs/day: Alcohol Use Standard Drinks/Week Comments No 0 (1 standard drink = 0.6 oz pure Alcoho lic Drinks/day: Amount:0; alcohol) Freq:Never; Sex Assigned at Date Recorded Not on file documented as of this encounter Nursing Notes Len Rowell RN - 04/08/2017 4:53 PM CST Renewed medication per medication refill protocol. Requested Prescriptions Signed Prescriptions Disp Refills ??? buPROPion (WELLBUTRIN SR) 150 MG 12 hour release tablet 180 Tab 0 Sig: TAKE 1 TABLET BY MOUTH TWICE DAILY Authorizing Provider: GAGANDEEP MICHAUD Ordering User: LEN ROWELL ER SETTER Interface, Out Nandi Proteins Query - 04/05/2017 4:16 PM CST buPROPion (WELLBUTRIN SR) 150 MG 12 hour release tablet [Pharmacy Med Name: BUPROPION SR 150MG TABLETS (12 H)] Medication started: 04/05/2017 Last ordered by GAGANDEEP MICHAUD: 04/05/2017 (0 days ago) QTY: 60, Refills: 2, Sig: take 1 tab by mouth two times a day. (changed but equivalent) -> The request contains a note from the pharmacy. -> Refill x 12 months, qty: 180, refills: 3 (maximum allowed) Last qualifying visit: 04/05/2017 (with GAGANDEEP MICHAUD) Next scheduled visit: None SBP: 134 mm Hg on 04/05/2017 DBP: 80 mm Hg on 04/05/2017 Powered by [employer], Reference: [id number], 04/05/2017 4:16:49 PM BOILER SETTER, Pool: MANUEL LANDAILL ([id number]) ER SETTER documented in this encounter Plan of Treatment Not on filedocumented as of this encounter Visit Diagnoses Diagnosis Tobacco use disorder (HRC) Tobacco use disorder documented in this encounter Care Teams Tag Meter Operator Relationship Specialty Start Date End Date Gagandeep Michaud MD PCP - General 05/17/12 [facility] [place] [address] Vane Zarate Psychiatrist Psychiatry 03/22/12 documented as of this encounter
--- OUTSIDE RECORDS SUMMARY | 2022-02-12 12:06 | XMS_ITS | Encounter Summary ---
:1970 Author Organization [employer] Address [address], [place] [address] Care Team Providers Name Role Phone Gagandeep Hinojosa MD Primary Care Provider Reason for Visit Procedure/Equipment (Routine) - Incomplete Specialty Diagnoses / Procedures Referred By Contact Refer red To Contact Diagnoses Left foot pain Diabetic ulcer of left midfoot associated with type 2 diabetes mellitus, with muscle involvement without evidence of necrosis (HRC) Gagandeep Hinojosa MD Procedures XR Foot Lt 2 Views [address] [place] [address] Referral ID Status Reason Start Date Expiration Date Visits V isits Requested Authorized [id number] Incomplete 08/05/2017 11/04/2018 1 1 Encounter Details Date Type Department Care Team Description 08/05/2017 [facility] [place] [facility] Gagandeep Hinojosa, Left foot pain; [address] Diabetic ulcer of left midfoot associate d with type 2 diabetes mellitus, with muscle involvement without evidence of necrosis (HRC) [place] [address] [address] [facility] [phone] [place] [phone] (Wo rk) Social History Tobacco Use [...] Priority Date/Time Associated Diagnosis Comme nts XR FOOT LT 2 VIEWS Routine 08/05/2017 1:49 PM Left foot pain Results for this CDT Diabetic ulcer of procedure are in left midfoot the results associated with type section . 2 diabetes mellitus, with muscle involvement without evidence of necrosis (HRC) documented in this encounter Results XR Foot Lt 2 Views (08/05/2017 1:49 PM CDT) Anatomical Region Laterality Modality Lower Extremity, Foot, Foot & Ankle Comp uted Radiography Specimen (Source) Anatomical Collection Method Collection Time Re ceived Time Location / / Volume Laterality 08/05/2017 1:43 PM CDT Narrative 08/05/2017 2:16 PM CDT COMPARISON: ??None. FINDINGS: ??2 views were obtained. No ac marisol fracture or dislocation. No radiographic evidence of acute osteolysis to suggest acute osteomyelitis. Preserved joint spaces in the foot. Mild soft tissue swe lling along the dorsum of the foot. Smal l plantar and dorsal calcaneal enthesophytes. Procedure Note Clay Norton MD - 08/05/2017Fo rmatting of this note might be different from the original. COMPARISON: None. FINDINGS: 2 views were obtained. No acut e fracture or dislocation. No radiographic evidence of acute osteolysis to suggest acute osteomyelitis. Preserved joint spaces in the foot. Mild soft tissue swelling along the dorsum of the foot. Small plantar and do rsal calcaneal enthesophytes. Gagandeep Hinojosa MD RAD GD documented in this encounter Visit Diagnoses Diagnosis Left foot pain Pain in limb Diabetic ulcer of left midfoot associate d with type 2 diabetes mellitus, with muscle involvement without evidence of necrosis (HRC) documented in this encounter Care Teams Skate Maker Relationship Specialty Start Date End Date Gagandeep Hinojosa MD PCP - General 05/17/12 [facility] [place] [place] [address] Vane Zarate Psychiatrist Psychiatry 03/22/12 [facility] Psychotherapist 08/04/17 documented as of this encounter
--- OUTSIDE RECORDS SUMMARY | 2022-02-12 12:06 | XMS_ITS | Encounter Summary ---
:1970 Author Organization [facility] Address [address] [place] [id number] Care Team Providers Name Role Phone Gagandeep Hinojosa MD Primary Care Provider Reason for Referral Procedure/Equipment (Routine) - Closed Specialty Diagnoses / Procedures Referred By Contact Refer red To Contact Diagnoses Diabetic ulcer of left midfoot associated with type 2 diabetes mellitus, with muscle involvement without evidence of necrosis (HRC) Gagandeep Hinojosa MD Procedures Walking Boot [address] [place] [address] Referral ID Status Reason Start Date Expiration Date Visits Requ ested Visits Authorized [id number] Closed 08/05/2017 11/04/2018 1 1 Procedure/Equipment (Routine) - Incomplete Specialty Diagnoses / Procedures Referred By Contact Refer red To Contact Diagnoses Left foot pain Diabetic ulcer of left midfoot associated with type 2 diabetes mellitus, with muscle involvement without evidence of necrosis (HRC) Gagandeep Hinojosa MD Procedures XR Foot Lt 2 Views [address] [place] [address] Referral ID Status Reason Start Date Expiration Date Visits V isits Requested Authorized [id number] Incomplete 08/05/2017 11/04/2018 1 1 Reason for Visit Reason Comments EDEMA left lower leg Encounter Details Date Type Department Care Team Description 08/05/2017 Office Visit Gagandeep Storm quiana t pain (Primary Dx); Romario Rubio MD Diabetic ulcer of left midfoot associate d with type 2 diabetes mellitus, with muscle involvement without evidence of necrosis (HRC); [address] [facility] [place] [address] [address] [phone] [place] [address] Social History Tobacco Use Types [...] Sign Reading Time Taken Comments Blood Pressure 134/82 08/05/2017 1:10 PM CDT Pulse 113 08/05/2017 1:10 PM CDT Temperature - - Respiratory Rate - - Oxygen Saturation - - Inhaled Oxygen Concentration - - Weight 96.6 kg (213 lb) 08/05/2017 1:10 PM CDT Height - - Body Mass Index 30.56 04/05/2017 3:18 PM TRAVEL JOURNALIST documented in this encounter Progress Notes Gagandeep Hinojosa MD - 08/05/2017 1:15 PM CDT ICD-10-CM 1. Left foot pain M79.672 XR Foot Lt 2 Views 2. Diabetic ulcer of left midfoot associated with type 2 diabetes mellitus, with muscle involvement without evidence of necrosis (HRC) E11.621 XR Foot Lt 2 Views L97.425 Walking Boot amoxicillin-clavulanate (AUGMENTIN) 875-125 mg per tablet 3. Milia L72.0 CHIEF COMPLAINT: Chief Complaint Patient presents with ??? EDEMA left lower leg SUBJECTIVE : Timur Krishnamurthy is an 47 y.o. male who presents for A painful left foot with swelling. Cannot recall specific trauma, but he is on his feet most of the day. Furthermore, he has diabetes, diabetic neuropathy, and has chronically cracked skin on the soles of his feet. He has had no fevers, chills. Blood sugars continue to be challenging. He has 2 skin lesions on his scrotum that he would like to have evaluated PROBLEM LIST: Patient Active Problem List Diagnosis Date Noted ??? Tobacco abuse ([facility]) 02/24/2016 ??? Tinea versicolor 07/18/2015 ??? Tobacco use disorder ([facility]) 10/26/2012 ??? Anemia 05/02/2012 Overview Note: Anemia, unspecified ??? Health intermediate, active care coordination 03/22/2012 Overview Note: Ethyl Blender: JOSETTE Yip [phone] Care coordination focus: T2DM, financial resources Living situation: lives with spouse Important notes: SSDI, significant insulin resistance, uses Relion insulin, commonly reaches Medicare Coverage Gap See care plan under Chart Review > [facility] > [facility] PL[facility] REPORT ??? Microalbuminuria 02/04/2012 ??? MO, old ([facility]) 09/16/2011 ??? History of PTCA 09/16/2011 Overview Note: History of PTCA 04/2011 BMS RCA ??? Obesity, Class I, BMI 30-34.9 ([facility]) 09/16/2011 Overview Note: Body mass index is 31.16 kg/(m^2). ??? Hyperlipidemia with target LDL less than 70 ([facility]) 06/08/2011 Overview Note: Hyperlipidemia LDL goal < 70 ??? ASHD (arteriosclerotic heart disease) ([facility]) 05/04/2011 ??? Erectile dysfunction 01/22/2011 Overview Note: side effect Risperdal ??? Type 2 diabetes mellitus, uncontrolled ([facility]) 12/11/2010 Overview Note: Type II or unspecified type diabetes mellitus without mention of complication, uncontrolled ([facility]) ??? Dermatophytosis of body 09/04/2010 Class: Historical Overview Note: Tinea Corporis ??? Coronary atherosclerosis ([facility]) 12/22/2009 Overview Note: LW Modifier: mod RCA, negative nuclear stress test ; CAD ??? Nonspecific abnormal results of liver function study 12/22/2009 Overview Note: Liver Function Tests Abnormal ??? Bipolar I disorder ([facility]) 09/15/2005 Overview Note: LW Onset: 34Ppi05 ; Bipolar I Dis FAMILY HISTORY OR [...] 6 hours as needed for Anxiety. ??? metFORMIN (GLUCOPHAGE) 500 MG tablet Take [...] cooperative in no acute distress. He is somewhat hypomanic, with multiple topics filling the conversation Vital Signs: BP 134/82 (BP Location: Right Arm, BP Cuff Size: Adult Large) Pulse (!) 113 Wt 213 lb (96.6 kg) BMI 30.56 kg/m2 Eyes: PERRLA, full EOM. No injection Neck: Supple, without masses, lymphadenopathy or tenderness. Respiratory: Normal respiratory effort. Heart: RRR Abdomen: The abdomen was soft and nondistended, normal sounds present. No obvious masses or organomegaly. Extremities: His left calf measures 41 cm, his right calf measures 40 cm. There is a modest effusionaround the left ankle, although there is no point tenderness. Achilles mechanism is intact. He has some dry scale with cracking on the soles of both feet, left greater than right, with fairly deep crack in the midfoot laterally on the left with also some cracking on the heel. However, no erythema, no drainage. Scrotum: He has 2 modest sized milia on the right hemiscrotum measuring about 3 mm each LABS : Left foot x-ray to my review shows no fracture, gas, evidence of osteomyelitis ASSESSMENT /PLAN ICD-10-CM 1. Left foot pain M79.672 XR Foot Lt 2 Views 2. Diabetic ulcer of left midfoot associated with type 2 diabetes mellitus, with muscle involvement without evidence of necrosis (HRC) E11.621 XR Foot Lt 2 Views L97.425 Walking Boot amoxicillin-clavulanate (AUGMENTIN) 875-125 mg per tablet 3. Milia L72.0 Follow-up:10 days documented in this encounter Plan of Treatment Not on filedocumented as of this encounter Results XR Foot Lt 2 Views (08/05/2017 1:49 PM CDT) Anatomical Region Laterality Modality Lower Extremity, Foot, Foot & Ankle Comp uted Radiography Specimen (Source) Anatomical Collection Method Collection Time Re ceived Time Location / / Volume Laterality 08/05/2017 1:43 PM CDT Narrative 08/05/2017 2:16 PM CDT COMPARISON: ??None. FINDINGS: ??2 views were obtained. No ac [place] fracture or dislocation. No radiographic evidence of [...] encounter Visit Diagnoses Diagnosis Left foot pain - Primary Pain in limb Diabetic ulcer of left midfoot associate d with type 2 diabetes mellitus, with muscle involvement without evidence of necrosis (HRC) Milia Sebaceous cyst Left foot pain Pain in limb Diabetic ulcer of left midfoot associate d with type 2 diabetes mellitus, with muscle involvement without evidence of necrosis (HRC) documented in this encounter Care Teams Machine Stripper Relationship Specialty Start Date End Date Gagandeep Hinojosa MD PCP - General 05/17/12 [address] [place] [address] Vane Zarate Psychiatrist Psychiatry 03/22/12 [facility] Mental [facility] Psychotherapist 08/04/17 documented as of this encounter
--- OUTSIDE RECORDS SUMMARY | 2022-02-12 12:06 | XMS_ITS | Encounter Summary ---
:1970 Author Organization [facility] Address [address] [place] [address] Care Team Providers Name Role Phone Gagandeep Michaud MD Primary Care Provider Reason for Visit Reason Onset Date Comments Refill 04/13/2017 insulin regular (NOV VONDA R) 100 UNIT/ML injection Encounter Details Date Type Department Care Team Description 04/13/2017 Refill [facility] [facility] Gagandeep Michaud, Refrose mary l (insulin regular Medicine MD (NOVOLIN R) 100 UNIT/ML [address] injection) [place] [address] [place] [address] (Wo rk) Social History Tobacco Use Types [...] encounter Nursing Notes Abbie Mitchell RN - 04/18/2017 10:18 AM CST Renewed medication per medication refill protocol. Requested Prescriptions Signed Prescriptions Disp Refills ??? insulin regular (NOVOLIN R) 100 UNIT/ML injection 110 mL 0 Sig: Inject 67 Units subcutaneously two times a day before meals. Authorizing Provider: GAGANDEEP MICHAUD Ordering User: ABBIE MITCHELL [employer] INTERNS[employer] Interface, Out H-umus Query - 04/13/2017 1:09 PM CST insulin regular (NOVOLIN R) 100 UNIT/ML injection Medication started: 07/28/2011 Last ordered by GAGANDEEP MICHAUD F: 12/03/2016 (131 days ago) QTY: 45, Refills: 0, Sig: inject 67 units subcutaneously two times a day before meals. (unchanged) -> Rapid A1C is abnormal (11.8 % is greater than 8.0 %) -> Refill x 3 months (until due for a(n) Rapid A1C check) -> Calculate quantity and refills manually. They could not be estimated due to missing or unreadable information. Last qualifying visit: 04/05/2017 (with GAGANDEEP MICHAUD) Next scheduled visit: None Rapid A1C : 11.8 % on 02/16/2017 Powered by [employer], Reference: [id number], 04/13/2017 1:09:42 PM MANAGER INTERNSHIP, Pool: MANUEL REFILL ([id number]) GER INTERNSHIP documented in this encounter Plan of Treatment Not on filedocumented as of this encounter Visit Diagnoses Diagnosis Uncontrolled type 2 diabetes mellitus wi thout complication, with long-term current use of insulin documented in this encounter Care Teams Rescue Instructor Relationship Specialty Start Date End Date Gagandeep Michaud MD PCP - General 05/17/12 [address] [facility] [place] [address] Vane Zarate Psychiatrist Psychiatry 03/22/12 documented as of this encounter
--- OUTSIDE RECORDS SUMMARY | 2022-02-12 12:06 | XMS_ITS | Encounter Summary ---
:1970 Author Organization [employer] Address [address] [place] [address] Care Team Providers Name Role Phone Gagandeep Hinojosa MD Primary Care Provider Reason for Visit Reason Comments SLEEP PROBLEM--ED Medication Problems Encounter Details Date Type Department Care Team Description 04/28/2017 Nurse Triage Gagandeep Storm SLEEP NC OBLEM--ED; Romario Rubio MD Medication Problems [address] [facility] [place] [address] [address] [phone] [place], [place] [address] Social History Tobacco Use Types [...] encounter Nursing Notes Sasha Garcia RN - 04/28/2017 11:08 AM CST Reason for Disposition ??? Symptoms interfere with work or school ??? [1] Bipolar disorder (manic depression) AND [2] worsening (e.g., thinking less clearly, more agitated, less able to do activities of daily living) Protocols used: ANXIETY AND PANIC [id number]-[id number], BIPOLAR DISORDER (MANIC DEPRESSION)-ADULT-AH Spoke to patient. Reports he has not been able to sleep all night for 2 out of 7 days this week. Normally has insomnia 1-2 time per month. Reports increase in shaking and more talkative. Called psychiatrist but is out of town until 05/04/17. Started taking Wellbutrin 04/05/17 for smoking cessation. Patient concerned about medication affecting his bipolar Dx. Patient didn't go to work today due to lackof sleep last night. Patient stopped smoking for 8 days but is now smoking. Denies SOB, thoughts of harming self or others, nor full blown manic state. Last seen 04/05/17. Problem list reviewed as related to this call. Future Appointments Date Time Provider Department Center 04/29/2017 10:30 AM Gagandeep Hinojosa MD [facility] MANUEL OR TECHNICAL ANALYST Vivienne Gifford - 04/28/2017 10:55 AM CST Pt calling to speak to a nurse about concerns with sleeping problems, pt States recently started WELLBUTRIN SR And could be contributing to concerns., please assist. OR TECHNICAL ANALYST documented in this encounter Plan of Treatment Not on filedocumented as of this encounter Visit Diagnoses Not on filedocumented in this encounter Care Teams Benefits Specialist Relationship Specialty Start Date End Date Gagandeep Hinojosa MD PCP - General 05/17/12 [address] [facility] [place] [id number] Vane Zarate Psychiatrsamantha Psychiatry 03/22/12 documented as of this encounter
--- OUTSIDE RECORDS SUMMARY | 2022-02-12 12:06 | XMS_ITS | Encounter Summary ---
:1970 Author Organization [employer] Address [address] [place] [address] Care Team Providers Name Role Phone Gagandeep Hinojosa MD Primary Care Provider Reason for Visit Reason Comments HC Face To Face Visit Encounter Details Date Type Department Care Team Description 06/06/2017 Care Coord Judy Luke RN [facility] Face To Face Office Visit Medicine [address] [facility] Visit [address] [place] [id number] Social History Tobacco Use Types Packs/Day Years [...] encounter Progress Notes Judy Pittman RN - 06/06/2017 1:00 PM CST RN Field Hockey Coach Visit Pt: Timur Krishnamurthy Referred by: Gagandeep Hinojosa MD Reason for referral: Diabetes type 2 uncontrolled Most recent vitals signs: Wt Readings from Last 3 Encounters: 06/03/17 223 lb (101.2 kg) 05/17/17 232 lb (105.2 kg) 04/05/17 222 lb (100.7 kg) BP Readings from Last 3 Encounters: 06/03/17 122/84 05/17/17 (!) 140/86 04/29/17 100/68 Most recent lab results: HGB A1C (%) Date Value 04/29/2017 9.7 (H) Lab Results Component Value Date/Time LDL 102 02/16/2017 10:54 AM LDL 123 07/13/2013 10:39 AM Social [...] CURRENT GLUCOSE PATTERNS: Rustam did not bring in any readings today Hypoglycemia (previous two weeks): none reported ASSESSMENT: Rustam was referred for care coordination services to assist with DM management and medication titration by Dr Hinojosa. I have known Rustam for several years, typically assisting with medication resources whenever he reaches the Medicare Coverage Gap. Rustam was recently hospitalized for mental health following taking Wellbutrin for smoking cessation. He reports he is currently still manic,having trouble focusing on our conversation, and his thoughts are racing, however he has been able to return to work and states he is gradually improving. Insurance Rustam receives SSDI for his dx Bipolar Disorder. He recently applied for MA-EPD, but doesn't think he will qualify because he and his have a combined income of $75,000 per year. I agreed, it is unlikely that his MA application will be approved. However, while Rustam has Medicare and prescription coverage, he does not have any supplemental insurance and pays the remaining 20% [id number]-dcfkax, using his spouse's HSA. I highly recommended Rustam consider signing up for supplemental coverage, but notedhe will likely need to wait for open-enrollment in the fall. Just because it isn't currently open-enrollment, doesn't mean he cannot do his research now, learn about his options, and be ready to sign-up for coverage in the fall. Therefore, I provided both medicare.gov and the Senior Linkage Line as resources to help Rustam do some research. Because Rustam is concerned about the added cost of seeing a specialist, he would like to work with Dr Hinojosa and myself, instead of endocrinology, to improve his DM management, in an efort to help reduce his medical costs. I agreed this is an option. Medication Rustam is using a medication regimen of metformin, Tresiba U200 and [facility] Relion insulin to manage his T2DM. In the past, Rustam has relied on [facility] Relion N and R to help reduce cost, however because of significant insulin resistance, he was using 8 vials per month. When Rustam reached the Coverage Gap last year, I was able to obtain samples of Tresiba to bridge the gap, which he ended up really liking, and decided to continue. In addition to Tresiba, Rustam is still using the Relion R for mealtimeinsulin to help decrease costs. Using My Insulin Plan, I reviewed how his insulins/medications are working together and noted the action time of the Regular insulin, stressing that he should be taking Regular insulin 30 minutes before meals and there should be at least 6 hours between doses. Rustam repeatedly suggested adding a Glp-1 agonist, such as Trulicity to his regimen. While I really like the idea, agreeing that a GLP-1 agonist will help improve glucose control, decrease appetite, promote weight loss, and help use less insulin, I explained that all the medications in this class are cost prohibitive because he is on Medicare and does not meet income eligibility for pharmaceutical assistance programs. Once Rustam heard that these medications cost approximately $700/month, he agreed they are unaffordable. Blood Glucose Rustam admits he has not been SMBG lately. He understands the importance of checking his BG while taking insulin, for safety. I also reminded Rustam that I cannot safely adjust his insulin without BG readings. I reminded Rustam to check his BG before meals and HS, he states he has a log book at home and will resume testing again. I reviewed his A1c result of 9.1% last month, stressing that we want to get his A1c down to 7% in order to reduce his risk for DM complications. Using the Synopsis tab in [employer], I reviewed Rustam's A1c results since his dx in 2005, noting that his A1c has been above goal for the past 10+ years, increasing his risk for complications from T2DM. Rustam states he really wants to make his DM more of a priority because he knows the risks and wants to be around to see his children and grandchildren grow up. Diet I tried to review diet with Rustam, but it was very difficult to keep him on track. Because he wants to lost weight, I recommended counting CHO choices and trying to stay at 4 choices at breakfast and dinner, 2 choices at lunch since it is not covered as well with insulin. I provided My Food Plan and reviewed how to read nutrition labels, highlighting the foods that do not contain CHO and should be used to satisfy hunger once his 2-4 CHO choices have been consumed. I stressed the importance of eatinga detailer furniture lunch because he is not taking any insulin before the meal. Rustam states he can't start the day without a bagel, therefore I recommended he pair the bagel with a protein to help satisfy him lo nger, such as peanut butter, an egg, or cottage cheese. For lunch, Rustam could look to Danish yogurt,a piece of fruit, or a salad to keep his CHO intake at 2 choices. Rustam also reports drinking 5+ cups of coffee and 2-3 bottles of diet soda per day. I reviewed the affects of caffeine on insulin resistance and diet soda on metabolic syndrome. We agreed it would be reasonable to start gradually decreasing his intake of coffee and soda, switching to carbonated water instead, which he really likes. Exercise Rustam reports he is not exercising at this time. Previously, he was walking at the [facility] and states he would like to resume being more active. I reminded Rustam of the importance of physical activity with glucose control. However, I also stressed that increased activity will lower his BG, so Rustam will need to carefully monitor his BG and carry CHO at all times. If he experiences hypoglycemia, Rustam may need to consume a 1 CHO snack before exercising. Smoking Cessation Rustam smells strongly of cigarette smoke. He reports he is working with a telephonic motor coach chauffeur on smoking cessation. Rustam is very motivated to quit, but admits it will be very difficult while he is manic. Currently, his quit date is scheduled for 06/08/17, but he is still smoking 20-25 cigarettes per day. While I absolutely want Rustam to quit smoking, I don't think it is realistic to suddenly stop smoking when he is still smoking 1-2 ppd. Therefore, I suggested Rustam talk with his motor coach chauffeur about postponing his quit date until his mental health has improved and he is able to stick to a plan of gradually reducing the number of cigarettes over several weeks. Rustam agreed. Follow-up Rustam reports he does best when he is held accountable and has close follow-up. Therefore, he would like to meet with me regularly, every 2 weeks, until his A1c is at goal. I agreed. Since Rustam typically has Mondays off from work, we scheduled a follow up visit 2 weeks from today. He will bring his BG readings. Family/social support: Patient attended today's visit alone. He currently lives with spouse. Current activity regimen: none Patient barrier(s) to learning identified: Finance and Emotional. BG Goals: Health Detention Lab Goal <7 Pre-meal: 70-130 mg/dL PPG: <180 mg/dL Bedtime: 90-150 mg/dL A1c: <7.0% Recommended testing frequency: Before meals and HS. Education content covered today: Oral Diabetes medications Acute Complications Chronic Complications BG Monitoring Diet/CHO Counting Smoking Cessation Rustam received verbal instructions and written materials tailored to his preferred method of learning. Literacy level assessed (as appropriate). Interventions, including teach back, used to verify understanding. SHARED PLAN: Continue current insulin and medication regimen. SMBG qid as directed, record readings. Count CHO choices and try to stay at 2-4 choices per meal. Increase activity as tolerated, monitor BG for hypoglycemia. Gradually decrease caffeine and soda consumption. Continue to work with motor coach chauffeur to decrease the number of cigarettes smoked per day. Follow up scheduled on 06/20/17, bring readings. Rustam to call if symptoms of hypoglycemia or readings < 70 mg/dL. Rustam verbalized understanding and agreed with plan of care and follow up. SEALER documented in this encounter Plan of Treatment Not on filedocumented as of this encounter Visit Diagnoses Diagnosis Health senior living, active care coordinati on - Primary Uncontrolled type 2 diabetes mellitus wi th hyperglycemia, with long-term current use of insulin (HRC) documented in this encounter Care Teams Engineering Manager Electronics Relationship Specialty Start Date End Date Gagandeep Hinojosa MD PCP - General 1/23/13 [address] [facility] [place] [address] Vane Zarate Psychiatrist Psychiatry 03/22/12 documented as of this encounter
--- OUTSIDE RECORDS SUMMARY | 2022-02-12 12:06 | XMS_ITS | Encounter Summary ---
:1970 Author Organization [facility] Address [address] [place] [address] Care Team Providers Name Role Phone Gagandeep Hinojosa MD Primary Care Provider Reason for Visit Reason Comments [facility] Phone Visit Encounter Details Date Type Department Care Team Description 05/26/2017 Care Coord Phone Judy Luke R N [facility] Phone Visit Medicine [address] [facility] [address] [place] [address] [place] [address] [phone] Social History Tobacco Use Types Packs/Day Years [...] encounter Progress Notes Judy Pittman RN - 05/26/2017 10:20 AM CST RN Blood Donor Recruiter Supervisor - Diabetes Follow-Up Current diabetes medication regimen: Tresiba 24 units daily Relion Regular 1.5 units/CHO choice Metformin 1,000 mg BID CURRENT GLUCOSE PATTERNS: Hypoglycemia (previous two weeks): 71, 75 Assessment/education: Rustam is calling to report he had a low while at work last evening, down to 75. He is currently manic, stating he was recently hospitalized, but is doing better. Rustam saw Dr Foster for hospital follow up on 05/17/17 and his insulin was adjusted at that time. After talking to Rustam and reviewing that he only ate popcorn and nuts for dinner, he thinks he likely overestimated the amount of CHO he ate. However, I noted that readings in the 70s technically aren't low, but if he felt low, he could treat it with 15 grams of CHO. I stressef the importance of taking the insulin 30 minutes before eating to make sure the insulin matches the peak of his BG. Rustam admits he has been taking his Regular insulin after eating, which could also be the reason why his BG decreased into the 70s. I also reviewed the insulin action time of 6-8 hours, noting that he should have at least 6 hours between doses of Regular insulin to prevent stacking, which can also cause lows. Rustam reports he had to cancel his previous appt to meet with me and would like to reschedule. Teach back method used to verify understanding. Shared plan: Continue current insulin regimen. Make sure to take Regular insulin 30 minutes before meals. Makes sure there is at least 8 hours between doses of Regular insulin. Scheduled follow up on 06/02/17. Call if sx of hypoglycemia or glucose readings < 70 mg/dL. Rustam verbalized understanding and agreed with plan of care and follow up. E CLEANER documented in this encounter Plan of Treatment Not on filedocumented as of this encounter Visit Diagnoses Diagnosis Health senior living, active care coordinati on - Primary Uncontrolled type 2 diabetes mellitus wi thout complication, with long-term current use of insulin documented in this encounter Care Teams Cement Mason Relationship Specialty Start Date End Date Gagandeep Hinojosa MD PCP - General 05/17/12 [facility]5 [facility] [place] [address] Vane Zarate Psychiatrist Psychiatry 03/22/12 documented as of this encounter
--- OUTSIDE RECORDS SUMMARY | 2022-02-12 12:06 | XMS_ITS | Encounter Summary ---
:1970 Author Organization [employer] Address [address] [place] [address] Care Team Providers Name Role Phone Gagandeep Hinojosa MD Primary Care Provider Reason for Visit Reason Comments HC Face To Face Visit Encounter Details Date Type Department Care Team Description 07/19/2017 Care Coord Judy Luke RN [facility] Face To Face Office Visit Medicine [address] [facility] Visit [address] [place] [id number] Social History Tobacco Use Types Packs/Day Years [...] encounter Progress Notes Judy Pittman RN - 07/19/2017 9:00 AM CDT RN Press Room Supervisor Visit Pt: Timur Krishnamurthy Referred by: Gagandeep Hinojosa MD Reason for referral: Diabetes type 2 uncontrolled Most recent vitals signs: Wt Readings from Last 3 Encounters: 06/03/17 223 lb (101.2 kg) 05/17/17 232 lb (105.2 kg) 04/05/17 222 lb (100.7 kg) BP Readings from Last 3 Encounters: 06/03/17 122/84 05/17/17 (!) 140/86 01/05/18 100/68 Most recent lab results: HGB A1C [...] Touch Ultra 2 CURRENT GLUCOSE PATTERNS: since 06/23/17 Fastin - 195, 231, 313 2 hours after largest meal: 132, 202, 218, 233 Hypoglycemia (previous two weeks): none reported ASSESSMENT: Rustam was referred for care coordination services to assist with DM management and medication titration by Dr Hinojosa. Mental Health Rustam continues to see his [facility] therapist every Tuesday and notes he is making sure to geta consistent 6-8 hours of sleep every night. His psychiatrist, Dr Vane Huff, started him on a new medication called Vraylar, about one month ago. Rustam states he has noticed a significant improvement, reporting he isn't having any more racing thoughts. He is also working to decrease his caffeine andnicotine intake, which is helping a great deal. Rustam is happy to be working, stating that work isgiving him purpose and helping to decrease his depression. His next follow up appt is once a month. Today he is using a stress ball. Insurance Rustam receives SSDI for his dx Bipolar Disorder. He applied for MA-EPD and states his application was approved, but he is still waiting to find out the monthly premium costs. While the coverage will backdate to April to help cover his hospitalization, the process will require him to pay all the monthly premiums back to April as well, which will be financially challenging. Rustam states he will likely need go to his parents for financial help. Medication Rustam is supposed to be using [...] more organized. He notes he never misses metformin. Rustam's goal is to reduce his A1c, therefore I noted he needs to be more consistent with taking his insulin. I suggested that Rustam needs to think of his DM medication being just as important as his mental health medication, taking it as prescribed. I stressed to Rustam that if he is nottaking all his medication as directed, his BG will be high, and there will be negative consequences to his health. Rustam understands. Blood Glucose Rustam admits he continues to work on SMBG. He understands the importance of checking his BG while taking insulin, for safety, but just hasn't been following through. Rustam is bringing his glucometer and insulin to work. Of the past 27 days, Rustam has 11 days of fasting readings and 4 post prandial readings. Rustam reports he has lofty goals, including checking his BG and taking his insulin, that he struggles with on a daily basis. He understands that I cannot safely adjust his insulin without BG readings. Diet Rustam states he wants to lose another 50 lbs over the next year because it will be better for his health. He knows he needs to work on his diet, especially his CHO intake. Rustam states he isn't eating out as often and is trying to make more meals at home. We reviewed Eating for Better Health, but Rustam states he is eating a lot of casseroles which doesn't fit the picture. I advised Rustam to portionout his casserole and fill the rest of his plate with non-starchy vegetables. Rustam states he likes vegetables, but can't afford fresh vegetables. I recommended using frozen instead of canned, if possible, or rinsing the canned vegetables to remove the salt. Rustam agreed. Exercise Rustam reports he is doing a lot walking at work, but [facility]. Heis interested in trying basketball. Rustam states he isn't really exercising at this time, rather he is periodically walking at the [facility], only about 2 times a week. He wants to do more, but has struggled with motivation. I reminded Rustam of the importance of physical activity with glucose control. Smoking Cessation Rustam reports he is smoking 15 cigarettes per day, down from 30-40 cigarettes per day. He is rollinghis own cigarettes from pipe tobacco to save money. He knows quitting will help with both his mentaland physical health. However, he is not working with the telephonic assistant golf coach anymore, he's not sure what happened. Rustam thinks he exhausted Quit Plan because he previously completed/graduated from the program. I advised that I don't think you can exhaust Quit Plan and encouraged him to re-enroll. Rustam's target goal is to decrease to 5 cigarettes per day, with complete cessation by his birthday in December. I recommended Rustam try cutting back 1 cigarette every 7-10 days. Follow-up Rustam reports he does best when he is held accountable and has close follow-up. Therefore, he would like to meet with me regularly, every 2-3 weeks, until his A1c is at goal. I agreed. Rustam only had about 20 minutes to met with me today because of his work schedule. We set up a follow up appt on 08/04/17, he will bring his BG readings. Family/social support: Patient attended today's visit alone. He currently lives with spouse. Current activity regimen: none Patient barrier(s) to learning identified: Finance and Emotional. BG Goals: Health [facility] Lab Goal <7 Pre-meal: 70-130 mg/dL PPG: <180 mg/dL Bedtime: 90-150 mg/dL A1c: <7.0% Recommended testing frequency: Before meals and HS. Education content covered today: Chronic Complications BG Monitoring Diet/CHO Counting Smoking Cessation Rustam received verbal instructions and written materials tailored to his preferred method of learning. Literacy level assessed (as appropriate). Interventions, including teach back, used to verify understanding. SHARED PLAN: Continue current insulin and medication regimen. SMBG qid as directed, record readings. Count CHO choices and try to stay at 2-4 choices per meal. Work toward decreasing 1 cigarette every 7-10 days. Re-enroll in Quit Plan for telephonic coaching. Follow up scheduled on 08/04/17, bring readings. Rustam to call if symptoms [...] microalbuminuria, with long-term current use of insulin Bipolar I disorder (HRC) Bipolar I disorder, most recent episode (or current) unspecified documented in this encounter Care Teams Betting Clerks Relationship Specialty Start Date End Date Gagandeep Hinojosa MD PCP - General 05/17/12 [facility]5 [facility] [place] [address] Vane Zarate Psychiatrist Psychiatry 03/22/12 documented as of this encounter
--- OUTSIDE RECORDS SUMMARY | 2022-02-12 12:06 | XMS_ITS | Encounter Summary ---
:1970 Author Organization [employer] Address [address], [place] [address] Care Team Providers Name Role Phone Gagandeep Hinojosa MD Primary Care Provider Encounter Details Date Type Department Care Team Description 05/12/2017 Notes/Orders [facility] [address], Endocrinology MBBS [address] [facility] [address] [place] [address] [place] [address] [phone] Social History Tobacco Use Types Packs/Day Years Used Date Smoking Tobacco: Every Day Cigarettes 0.3 25 Smokeless Tobacco: Former Qu it: 10/25/2012 Comments: Smoking History Packs/day: Alcohol Use Standard Drinks/Week Comments No 0 (1 standard drink = 0.6 oz pure Alcoho lic Drinks/day: Amount:0; alcohol) Freq:Never; Sex Assigned at Date Recorded Not on file documented as of this encounter Progress Notes Glenys Alcantar MBBS - 05/12/2017 9:11 AM CST patient was admitted to [facility] for suicidal ideation. REINA Barrera STRIAL ELECTRICIAN documented in this encounter Plan of Treatment Not on filedocumented as of this encounter Visit Diagnoses Not on filedocumented in this encounter Care Teams Veterinary Milk Specialist Relationship Specialty Start Date End Date Gagandeep Hinojosa MD PCP - General 05/17/12 [address] [facility] [place] [address] Vane Zarate Psychiatrist Psychiatry 03/22/12 documented as of this encounter
--- OUTSIDE RECORDS SUMMARY | 2022-02-12 12:06 | XMS_ITS | Encounter Summary ---
:1970 Author Organization [employer] Address [address] [place] [address] Care Team Providers Name Role Phone Gagandeep Hinojosa MD Primary Care Provider Reason for Visit Reason Comments SKIN,DRY on hands Encounter Details Date Type Department Care Team Description 06/03/2017 Office Visit [place] Gagandeep Hinojosa Dermatit is (Primary Medicine FMD Dx) [address] [facility] . [address] [place] [address] [address] [phone] [place], [place] [address] Social History Tobacco Use [...] Sign Reading Time Taken Comments Blood Pressure 122/84 06/03/2017 9:56 AM VB NET DEVELOPER Pulse - - Temperature - - Respiratory Rate - - Oxygen Saturation - - Inhaled Oxygen Concentration - - Weight 101.2 kg (223 lb) 06/03/2017 9:56 AM VB NET DEVELOPER Height - - Body Mass Index 32 04/05/2017 3:18 PM VB NET DEVELOPER documented in this encounter Progress Notes Gagandeep Hinojosa MD - 06/03/2017 9:45 AM CST ICD-10-CM 1. Dermatitis L30.9 CHIEF COMPLAINT: Chief Complaint Patient presents with ??? SKIN,DRY on hands SUBJECTIVE : Timur Krishnamurthy is an 47 y.o. male who presents for dry skin on both hands. He typically gets this in the winter, and has cracking of his fingertips and knuckles. Intentionally avoids excessive useof soaps, dishwashing, and has been utilizing lotion for lubrication. He utilizes no caustic cleansers. Typically has improvement when the weather warms up. PROBLEM LIST: Patient Active Problem List Diagnosis Date Noted ??? Tobacco abuse ([facility]) 02/24/2016 ??? Tinea versicolor 07/18/2015 ??? Tobacco use disorder ([facility]) 10/26/2012 ??? Anemia 05/02/2012 Overview Note: Anemia, unspecified ??? Health long-term, active care coordination 03/22/2012 Overview Note: Automobile Lights Assembler: JOSETTE Yip [phone] Care coordination focus: T2DM, financial resources Living situation: lives with spouse Important notes: SSDI, significant insulin resistance, uses Relion insulin, commonly reaches Medicare Coverage Gap See care plan under Chart Review > [facility] Reports > AMB [facility] C[facility] PLAN REPORT ??? Microalbuminuria 02/04/2012 ??? IA, old ([facility]) 09/16/2011 ??? History of PTCA 09/16/2011 Overview Note: History of PTCA 04/2011 BMS RCA ??? Obesity, Class I, BMI 30-34.9 ([facility]) 09/16/2011 Overview Note: Body mass index is 31.16 kg/(m^2). ??? Hyperlipidemia with target LDL less than 70 ([facility]) 06/08/2011 Overview Note: Hyperlipidemia LDL goal < 70 ??? ASHD (arteriosclerotic heart disease) ([facility]) 05/04/2011 ??? Erectile dysfunction 01/22/2011 Overview Note: side effect Risperdal ??? Type 2 diabetes mellitus, uncontrolled ([facility]) 12/11/2010 Overview Note: Type II or unspecified type diabetes mellitus without mention of complication, uncontrolled ([facility]) ??? Dermatophytosis of body 09/04/2010 Class: Historical Overview Note: Tinea Corporis ??? Coronary atherosclerosis ([facility]) 12/22/2009 Overview Note: LW Modifier: mod RCA, negative nuclear stress test ; CAD ??? Nonspecific abnormal results of liver function study 12/22/2009 Overview Note: Liver Function Tests Abnormal ??? Bipolar I disorder ([facility]) 09/15/2005 Overview Note: LW Onset: ; Bipolar [...] by mouth daily. 90 Tab 1 ??? Charcoal 260 MG Take 1 Tab [...] 24 hours). 07/09/2016: 6 mg QD ??? QUEtiapine (SEROQUEL) 200 MG tablet Take 1 Tab by mouth daily at bedtime. No facility-administered medications prior to visit. ALLERGIES: Allergies Allergen Reactions ??? Aripiprazole permanent shaking in left arm ??? Gabapentin Suicidal thoughts ??? Haloperidol Shock ??? Nitroglycerin Nausea And Vomiting ??? Thiothixene Other, see comments Muscle spasm ??? Wellbutrin [Bupropion] Anxiety OBJECTIVE : Gen.: Alert, cooperative in no acute distress. Vital Signs: BP 122/84 Wt 223 lb (101.2 kg) BMI 32 kg/m2 Eyes: PERRLA, full EOM. Neck: Supple, without masses, lymphadenopathy or tenderness. Respiratory: Normal respiratory effort. Heart: RRR Abdomen: The abdomen was soft and nondistended, normal sounds present. No obvious masses or organomegaly. Extremities: The skin on his hands is dry. He has deep cracks with some scabbing on the tips of 4 fingers, 2 on each hand. Similarly, he has some skin cracking in the webs between the thumb and index fingers bilaterally, and is not close. LABS : ASSESSMENT /PLAN ICD-10-CM 1. Dermatitis L30.9 Addressed use of adhesives to close the skin cracks, such as super glue, and then copious amounts ofVaseline or Eucerin. Follow-up: If not improved NET DEVELOPER documented in this encounter Plan of Treatment Not on filedocumented as of this encounter Visit Diagnoses Diagnosis Dermatitis - Primary Contact dermatitis and other eczema, due to unspecified cause documented in this encounter Care Teams Manager Lan Relationship Specialty Start Date End Date Gagandeep Hinojosa MD PCP - General 05/17/[address] [place], [place] [address] [address] Vane Zarate Psychiatrist Psychiatry 03/22/12 documented as of this encounter
--- OUTSIDE RECORDS SUMMARY | 2022-02-12 12:07 | XMS_ITS | Encounter Summary ---
:1970 Author Organization [employer] Address [address] [place] [address] Care Team Providers Name Role Phone Gagandeep Hinojosa MD Primary Care Provider Reason for Visit Reason Comments Diabetes Encounter Details Date Type Department Care Team Description 02/16/2017 Office Visit Gagandeep Storm Unconfaribao lled type 2 diabetes mellitus with diabetic polyneuropathy, with long-term current use of insulin (HRC) (Primary Dx); Romario Rubio MD Encounter for immunization; [address] [facility] Diabetic polyneuropathy associated with type 2 diabetes mellitus (HRC); [address] [facility] current use of insulin (HRC); [place] [address] [place] Type 2 diabetes mellitus wit h diabetic polyneuropathy, with long- term current use of insulin (HRC); [phone] Hyperlipidemia, unspecified hyperlipidem ia type; [phone] Tobacco use dis order; (Work) ASHD (arteriosclerotic heart disease) Social History Tobacco Use Types [...] Sign Reading Time Taken Comments Blood Pressure 128/84 02/16/2017 11:37 AM CDT Pulse 91 02/16/2017 11:37 AM CDT Temperature - - Respiratory Rate - - Oxygen Saturation - - Inhaled Oxygen Concentration - - Weight 96.2 kg (212 lb) 02/16/2017 11:29 AM CDT Height - - Body Mass Index 30.42 09/15/2016 2:24 PM CDT documented in this encounter Progress Notes Gagandeep Hinojosa MD - 02/16/2017 12:01 PM CDT SUBJECTIVE: 47 y.o. male presents today [...] has been smoking Cigarettes. He has a 6.25 pack-year smoking history. He quit smokeless tobacco use about 4 years ago. Eye exam: Patient is up-to-date with eye exam. Patient does not [...] (DEPAKOTE) 500 MG enteric coated tablet Take 2,500 mg by mouth. 07/09/2016: Taking 2,500mg QD ??? Insulin Degludec (TRESIBA FLEXTOUCH) 200 UNIT/ML SOPN Inject 84 Units subcutaneously daily. 9 mL6 ??? insulin pen needle (BD ULTRAFINE JANET) 32G X 4 MM Inject subcutaneously as needed for Blood Sugar >. 100 Each 11 ??? insulin regular (NOVOLIN R) 100 UNIT/ML injection Inject 67 Units subcutaneously two times a daybefore meals. 45 mL 0 ??? Insulin Syringe-Needle U-100 (INSULIN [...] 24 hours). 07/09/2016: 6 mg QD ??? LORazepam (ATIVAN) 1 MG tablet Take 1 mg by mouth. 07/09/2016: Prn ??? QUEtiapine (SEROQUEL) 300 MG tablet Take 300 mg by mouth daily at bedtime. No facility-administered medications prior to visit. Adverse Drug Reactions: Allergies Allergen Reactions ??? Aripiprazole permanent shaking in left arm ??? Gabapentin Suicidal thoughts ??? Haloperidol Shock ??? Nitroglycerin Nausea And Vomiting ??? Thiothixene Other, see comments Muscle spasm OBJECTIVE: Vital Signs: BP 128/84 Pulse 91 Wt 212 lb (96.2 kg) BMI 30.42 kg/m2 General: Alert, Oriented, NAD Head: Normocephalic. [...] Feet: Exam of the foot is abnormal: Numbness, no ulceration and Monofilament exam of the foot is abnormal: Labs: Lab Results Component Value Date HGBA1C 10.9 (H) 03/27/2015 UMICROALB 102.5 09/07/2016 CREATININE 0.70 (L) 09/07/2016 Lab Results Component Value Date CHOL 128 09/07/2016 CHOL 3.9 09/07/2016 HDL 33 (L) 09/07/2016 LDL 60 09/07/2016 TRI 176 (H) 09/07/2016 Lab Results Component Value Date ALT 23 11/04/2015 ALT 18 11/04/2015 AST 20 11/04/2015 AST 18 11/04/2015 HGB A1C Date Value Ref Range Status 03/27/2015 10.9 (H) 4.0 - 5.6 % Final Hemoglobin A1C, POC Date Value Ref Range Status 09/15/2016 8.5 (A) 4 - 5.6 % Final Lab Results Component Value Date/Time HGB A1C 10.9 (H) 03/27/2015 1434 Hemoglobin A1C, POC 8.5 (A) 09/15/2016 1436 No components found for: GLUF Lab Results Component Value Date K 5.1 09/07/2016 CHLORIDE 98 09/07/2016 ASSESSMENT: 1. Type 2 diabetes, uncontrolled 2. Hypertension, controlled 3. Hyperlipidemia, controlled ICD-10-CM 1. ASHD (arteriosclerotic heart disease) ([facility]) I25.10 Basic Metabolic Panel 2. Encounter for immunization Z23 Influenza (Fluarix or Fluzone 0.5, 3+ yrs) 3. Uncontrolled type 2 diabetes mellitus with diabetic polyneuropathy, with long-term current use ofinsulin ([facility]) E11.42 POCT Glycosylated Hemoglobin (HB A1C) Z79.4 Microalb/Creat Ratio E11.65 4. Diabetic polyneuropathy associated with type 2 diabetes mellitus ([facility]) E11.42 5. ocean transportation intermediary current use of insulin ([facility]) Z79.4 6. Type 2 diabetes mellitus with diabetic polyneuropathy, with long-term current use of insulin ([facility]) E11.42 Z79.4 7. Hyperlipidemia, unspecified hyperlipidemia type ([facility]) E78.5 Lipid Panel and Direct LDL(If Needed) 8. Tobacco use disorder ([facility]) F17.200 PLAN: 1. Again, his major difficulty is financial. His control has declined significantly, and he really does not have financial wherewithal to make huge improvements, although he is now working. The patient was discharged ambulatory and in stable condition. Diabetes measures: A1c Due: 3 months Foot Exam: 3 months Eye exam: Next summer Cholesterol: 6 months Electrolytes: 3 months UMAR: 3 months Aspirin: yes Tobacco: yes documented in this encounter Plan of Treatment Not on filedocumented as of this encounter Results (ABNORMAL) Microalb/Creat Ratio (08/15/2017 8:50 AM CDT) [facility] Qiandao Method Time Signature Microalbumin 150.2 mg/L PN SOFT Urine U Creat Random 113 mg/dL PN SOFT Microalbumin/Crea 132.9 (H) 0.0 - PN SOFT tinine Ratio 30.0 Specimen Anatomical Collection Method Collection Time Receive d Time (Source) Location / / Volume Laterality Urine specimen 08/15/2017 8:50 AM 018 (specimen) CDT 11:33 AM CDT Narrative PN SOFT - 08/15/2017 12:05 PM CDT Performed at [facility], [address] [place] [address] CLIA number [id number] Gagandeep Hinojosa MD LAB_1 Performing Organization Address City/State/ZIP Code Phon e Number PN SOFT [address] [place] [address] (ABNORMAL) Lipid Panel and Direct LDL(If Needed) (08/15/2017 8:43 AM CDT) [facility] Qiandao Method Time Signature Cholesterol 102 0 - [...] - 08/15/2017 3:34 PM CDT Performed at [facility], [address] [place] [address] CLIA number [id number] Gagandeep Hinojosa MD LAB_1 Performing Organization Address [facility] Phon e Number PN SOFT [address] [place] [address] (ABNORMAL) POCT Glycosylated Hemoglobin (HB A1C) (05/17/2017 1:59 PM FIELD CROP FARMWORKER) [facility] gist Method Time Signature Glycosolated HGB 9.1 [...] Volume Laterality 05/17/2017 1:59 PM 8 1:58 FIELD CROP FARMWORKER PM FIELD CROP FARMWORKER Narrative PN SOFT - 05/17/2017 2:15 PM FIELD CROP FARMWORKER Performed at [facility], [address] [place] [address] CLIA number [id number] Gagandeep Hinojosa MD LAB_1 Performing Organization Address [facility] Phon e Number PN SOFT [address] [place] [address] documented in this encounter Visit Diagnoses Diagnosis Uncontrolled type 2 diabetes mellitus wi th diabetic polyneuropathy, with long-term current use of insulin - Primary Encounter for immunization Need for other specified prophylactic va ccination against single bacterial disease Diabetic polyneuropathy associated with type 2 diabetes mellitus (HRC) [facility] current use of insulin (HRC) Encounter for long-term (current) use of insulin Type 2 diabetes mellitus with diabetic p olyneuropathy, with long-term current use of insulin (HRC) Hyperlipidemia, unspecified hyperlipidem ia type (HRC) Tobacco use disorder (HRC) Tobacco use disorder ASHD (arteriosclerotic heart disease) ([facility]) Coronary atherosclerosis of unspecified type of vessel, [place] or graft Uncontrolled type 2 diabetes mellitus wi th diabetic polyneuropathy, with long-term current use of insulin Hyperlipidemia, unspecified hyperlipidem ia type (HRC) Uncontrolled type 2 diabetes mellitus wi th diabetic polyneuropathy, with long-term current use of insulin Uncontrolled type 2 diabetes mellitus wi thout complication, without long-term current use of insulin documented in this encounter Care Teams Manager Requirements Relationship Specialty Start Date End Date Gagandeep Hinojosa MD PCP - General 05/17/12 [address] [facility] [place] [address] Vane Zarate Psychiatrist Psychiatry 03/22/12 documented as of this encounter
--- OUTSIDE RECORDS SUMMARY | 2022-02-12 12:07 | XMS_ITS | Encounter Summary ---
:1970 Author Organization [facility] Address [address] [place] [address] Care Team Providers Name Role Phone Gagandeep Hinojosa MD Primary Care Provider Reason for Visit Reason Comments RESULTS, TEST emg Encounter Details Date Type Department Care Team Description 10/22/2016 Office Visit Gagandeep Storm Sensory neuropathy Romario Rubio MD (Primary Dx) [address] [facility] . [address] [place] [address] [address] [phone] [place], [place] [address] Social History Tobacco Use Types Packs/Day Years Used Date Smoking Tobacco: Every Day Cigarettes 0 25 Smokeless Tobacco: Former Qu it: 10/25/2012 Comments: Smoking History Packs/day: Alcohol Use Standard Drinks/Week Comments No 0 (1 standard drink = 0.6 oz pure Alcoho lic Drinks/day: Amount:0; alcohol) Freq:Never; Sex Assigned at Date Recorded Not on file documented as of this encounter Last Filed Vital Signs Vital Sign Reading Time Taken Comments Blood Pressure 104/68 10/22/2016 2:01 PM CDT Pulse 96 10/22/2016 2:01 PM CDT Temperature - - Respiratory Rate - - Oxygen Saturation - - Inhaled Oxygen Concentration - - Weight 99.3 kg (219 lb) 10/22/2016 2:01 PM CDT Height - - Body Mass Index 31.42 09/15/2016 2:24 PM CDT documented in this encounter Patient Instructions Patient InstructionsGagandeep Hinojosa MD - 10/22/2016 2:00 PM CDT Vitamin D 5297-7094 IU daily Vitamin B 6 50 mg dailt Folic 1 mg daily Multi-vitamin documented in this encounter Progress Notes Gagandeep Hinojosa MD - 10/22/2016 2:00 PM CDT ICD-10-CM 1. Sensory neuropathy ([facility]) G62.9 left lower leg sensory CHIEF COMPLAINT: Chief Complaint Patient presents with ??? RESULTS, TEST emg SUBJECTIVE : Timur Krishnamurthy is an 46 y.o. male who presents for results of EMG. Please see results on line. He does have some discomfort, but mainly numbness without any weakness. Again, his symptoms are primarily unilateral PROBLEM LIST: Patient Active Problem List Diagnosis Date Noted ??? Tobacco abuse ([facility]) 02/24/2016 ??? Tinea versicolor 07/18/2015 ??? Diabetic eye exam ([facility]) 12/12/2013 Overview Note: Eye exam done at [facility] on 12/12/13. Mild diabetic retinopathy in right eye. ??? Tobacco use disorder ([facility]) 10/26/2012 ??? ACS (acute coronary syndrome) ([facility]) 10/25/2012 ??? Anemia 05/02/2012 ??? Health detention, active care coordination 03/22/2012 Overview Note: Immigration Services Officer: JOSETTE Yip [phone] Care coordination focus: T2DM, financial resources Living situation: lives with spouse Important notes: SSDI, significant insulin resistance, uses Relion insulin, commonly reaches Medicare Coverage Gap See care plan under Chart Review > [facility] Reports > [facility] CARE PLAN REPORT ??? Microalbuminuria 02/04/2012 ??? [place] ([facility]) 09/16/2011 ??? History of PTCA 09/16/2011 ??? Obesity, Class I, BMI 30-34.9 ([facility]) 09/16/2011 Overview Note: Body mass index is 31.16 kg/(m^2). ??? Hyperlipidemia with target LDL less than 70 ([facility]) 06/08/2011 ??? ASHD (arteriosclerotic heart disease) ([facility]) 05/04/2011 ??? Erectile dysfunction 01/22/2011 Overview Note: side effect Risperdal ??? Type 2 diabetes mellitus, uncontrolled ([facility]) 12/11/2010 ??? Dermatophytosis of body 09/04/2010 Class: Historical ??? Coronary atherosclerosis ([facility]) 12/22/2009 Overview Note: LW Modifier: mod RCA, negative nuclear stress test ??? Nonspecific abnormal results of liver function study 12/22/2009 ??? Bipolar I disorder ([facility]) 09/15/2005 Overview Note: LW Onset: FAMILY HISTORY OR SICK CONTACTS : No family history on file. SOCIAL HISTORY : Social History Substance Use Topics ??? Smoking status: Current Every Day Smoker Packs/day: 0.00 Years: 25.00 Types: Cigarettes ??? Smokeless tobacco: [...] Degludec (TRESIBA FLEXTOUCH) 200 UNIT/ML SOPN Inject 70 Units subcutaneously daily. (Patient taking differently: Inject 84 Units subcutaneously daily.) 9 mL 6 ??? insulin pen needle (BD ULTRAFINE JANET) 32G X 4 MM Inject subcutaneously as needed for Blood Sugar >. 100 Each 11 ??? insulin regular (NOVOLIN R) 100 UNIT/ML injection Inject 76 Units subcutaneously two times a daybefore meals. (Patient taking differently: Inject 67 Units subcutaneously two times a day before meals.) 07/09/2016: 72 units BID 40 mL 2 ??? Insulin Syringe-Needle U-100 (INSULIN SYRINGE 31G X 09/07) 31G X 516 1 ML Inject 1 Each subcutaneously 4 times a day. 500 Each 3 ??? ketoconazole (NIZORAL) 2 % cream Apply topically daily (every 24 hours). 07/09/2016: prn 45 g 2 ??? lisinopril (ZESTRIL) 10 MG tablet Take 1 Tab by mouth daily. 90 Tab 3 ??? LORazepam (ATIVAN) 1 MG tablet Take 1 mg by mouth. 07/09/2016: Prn ??? metFORMIN (GLUCOPHAGE) 500 MG tablet Take [...] 300 mg by mouth daily at bedtime. ??? risperiDONE (RISPERDAL) 4 MG tablet Take 4 mg by mouth daily (every 24 hours). 07/09/2016: 6 mg QD No facility-administered medications prior to visit. ALLERGIES: Allergies Allergen Reactions ??? Aripiprazole permanent shaking in left arm ??? Gabapentin Suicidal thoughts ??? Haloperidol Shock ??? Nitroglycerin Nausea And Vomiting ??? Thiothixene Other, see comments Muscle spasm OBJECTIVE : Gen.: Alert, cooperative in no acute distress. Affect is somewhat flat Vital Signs: BP 104/68 Pulse 96 Wt 219 lb (99.3 kg) BMI 31.42 kg/m2 Eyes: PERRLA, full EOM. Respiratory: Normal respiratory effort. Heart: RRR Abdomen: The abdomen was overweight, soft and nondistended, normal sounds present. No obvious massesor organomegaly. Extremities: Station and gait are normal. Negative straight leg raising. Toe walking and heel standing are normal. LABS : EMG 10/13/2016: Impression: The study is abnormal of the left lower extremity. There is evidence for a length dependent sensorimotor peripheral neuropathy. There is no electrophysiologic evidence of a left lumbosacral radiculopathy or plexopathy. ?? Clinically, there does appear to be decreased sensation primarily in the lateral femoral cuntaneous neuropathy. This EMG can not exclude a lateral sensory femoral neuropathy. ?? Summary: The left peroneal motor nerve conduction study showed slowed conduction velocity. The left tibial motor nerve conduction study showed slowed conduction velocity. The left sural sensory nerve conduction study was not obtained. The concentric needle examination of the left lower extremity and low lumbar paraspinal muscles werenormal. ASSESSMENT /PLAN ICD-10-CM 1. Sensory neuropathy ([facility]) G62.9 left lower leg sensory Patient Instructions Vitamin D [id number] IU daily Vitamin B 6 50 mg dailt Folic 1 mg daily Multi-vitamin The patient reports that he is unable to afford additional studies for lab abnormalities such as vitamin deficiencies, MRI. He will attempt empiric trial of therapy with the above-mentioned vitamins Follow-up: For routine diabetes recheck in 3 months documented in this encounter Plan of Treatment Not on filedocumented as of this encounter Visit Diagnoses Diagnosis Sensory neuropathy - Primary Unspecified hereditary and idiopathic pe ripheral neuropathy documented in this encounter Care Teams Mediator Relationship Specialty Start Date End Date Gagandeep Hinojosa MD PCP - General 05/17/12 [address] [facility] [place] [address] Vane Zarate Psychiatrist Psychiatry 03/22/12 documented as of this encounter
--- OUTSIDE RECORDS SUMMARY | 2022-02-12 12:07 | XMS_ITS | Encounter Summary ---
:1970 Author Organization [facility] Address [address] [place] [address] Care Team Providers Name Role Phone Gagandeep Michaud MD Primary Care Provider Reason for Visit Reason Comments Refill metoPROLOL succinate (TOPROL XL) 50 MG 24 hour release tablet [Pharmacy Med Name: METOPROLOL ER SUCCINAT E 50MG TABS] Encounter Details Date Type Department Care Team Description 08/08/2016 Refill Gagandeep Storm, Rochelle l (metoPROLOL Medicine MD succinate (TOPROL XL) [address] MG 24 hour release [place] [address] [place] [address] tablet [Pharmacy Med [phone] (Wo rk) Name: METOPROLOL ER SUCCINATE 50MG TABS]) Social History Tobacco Use Types Packs/Day Years Used Date Smoking Tobacco: Every Day Cigarettes 0 25 Smokeless Tobacco: Former Qu it: 10/25/2012 Comments: Smoking History Packs/day: Alcohol Use Standard Drinks/Week Comments No 0 (1 standard drink = 0.6 oz pure Alcoho lic Drinks/day: Amount:0; alcohol) Freq:Never; Sex Assigned at Date Recorded Not on file documented as of this encounter Nursing Notes Cha Muir RN - 08/09/2016 7:57 AM CDT Renewed medication per medication refill protocol. Requested Prescriptions Signed Prescriptions Disp Refills ??? metoPROLOL succinate (TOPROL XL) 50 MG 24 hour release tablet 90 Tab 3 Sig: TAKE 1 TABLET BY MOUTH EVERY 24 HOURS Authorizing Provider: GAGANDEEP MICHAUD Ordering User: CHA MUIR Interface, Out [employer] Query - 08/08/2016 10:29 AM CDT metoPROLOL succinate (TOPROL XL) 50 MG 24 hour release tablet [Pharmacy Med Name: METOPROLOL ER SUCCINATE 50MG TABS] Medication started: 01/09/2014 Last ordered by GAGANDEEP MICHAUD F: 06/09/2016 (60 days ago) QTY: 90, Refills: 3, Sig: take 1 tab bymouth daily. (changed but equivalent) -> The patient is requesting refills too soon, the current prescription is due to run out on 06/04/2017. -> Refill x 12 months (until due for an office visit) Last qualifying visit: 07/09/2016 (with GAGANDEEP MICHAUD) Next scheduled visit: None SBP: 124 mm Hg on 07/19/2016 DBP: 72 mm Hg on 07/19/2016 Powered by [employer], Reference: [id number], 08/08/2016 10:29:01 AM CDT, Pool: MANUEL LANDAILL ([id number]) documented in this encounter Plan of Treatment Not on filedocumented as of this encounter Visit Diagnoses Not on filedocumented in this encounter Care Teams Nuclear Operations Specialist Relationship Specialty Start Date End Date Gagandeep Michaud MD PCP - General 05/17/12 [address] [facility] [place] [address] Vane Zarate Psychiatrist Psychiatry 03/22/12 documented as of this encounter
--- OUTSIDE RECORDS SUMMARY | 2022-02-12 12:07 | XMS_ITS | Encounter Summary ---
:1970 Author Organization [facility] [facility] Address [address] [place] [address] Care Team Providers Name Role Phone Gagandeep Michaud MD Primary Care Provider Reason for Visit Reason Comments Refill NOVOLIN R 100 UNIT/ML inject ion [Pharmacy Med Name: NOVOLIN R 100UNIT/ML INJ] Encounter Details Date Type Department Care Team Description 12/03/2016 Refill [facility] Gagandeep Michaud, Refil l (NOVOLIN R 100 Medicine MD UNIT/ML injection [address] [Pharmacy Med Name: [place] [address] [place] [address] NOVOLIN R 100UNIT/ML [phone] (Wo rk) INJ]) Social History Tobacco Use Types Packs/Day Years [...] encounter Nursing Notes Gloria Hdez RN - 12/03/2016 9:30 PM CDT Requested Prescriptions Signed Prescriptions Disp Refills ??? insulin regular (NOVOLIN R) 100 UNIT/ML injection 45 mL 0 Sig: Inject 67 Units subcutaneously two times a day before meals. Authorizing Provider: GAGANDEEP MICHAUD Gladys Reddy RN - 12/03/2016 4:52 PM CDT Further assistance needed to complete refill request Reason: Multiple dosages listed. Clarification for medication regimen needed. Next Steps: Review pended order for accuracy. Sign. Close encounter. Requested Prescriptions Pending Prescriptions Disp Refills ??? insulin regular (NOVOLIN R) 100 UNIT/ML injection [Pharmacy Med Name: NOVOLIN R 100UNIT/ML INJ] 45 mL 0 Si Units two times a day before meals. Spoke with pt. States that take 67 units of Novolin bid. Last seen for DM follow up with lab work with PCP on 09/07/16 . Pt was to return in 3 months to have lab work rechecked which pt has not done at this time. States that has enough medication to get through the weekend. Abbie Mitchell RN - 12/03/2016 2:57 PM CDT Further assistance needed to complete refill request Reason: Clarification for medication regimen needed. There are two different med notes on last orderfor different dosing. Please verify current dosing and route to provider for new signed order. Next Steps: Triage to complete refill as appropriate. Requested Prescriptions Pending Prescriptions Disp Refills ??? NOVOLIN R 100 UNIT/ML injection [Pharmacy Med Name: NOVOLIN R 100UNIT/ML INJ] Sig: INJECT 76 UNITS TWICE DAILY BEFORE BREAKFAST AND BEFORE DINNER Hector Li - 12/03/2016 2:48 PM CDT Pt states that he is out of RX. Interface, Out [employer] Prov Query - 12/03/2016 2:46 PM CDT NOVOLIN R 100 UNIT/ML injection [Pharmacy Med Name: NOVOLIN R 100UNIT/ML INJ] Medication started: 07/28/2011 Last ordered by GAGANDEEP MICHAUD: 02/25/2016 (282 days ago) QTY: 40, Refills: 2, Sig: inject 76 units subcutaneously two times a day before meals. (changed) -> This medication may not have been authorized by the requested provider. -> The patient is requesting a renewal from a different pharmacy. -> Due to an unreadable sig, manually ensure the patient is due for a renewal. -> The requested sig has changed from the last order. -> Rapid A1C is abnormal (8.5 % is greater than 8.0 %) -> Refill x 3 months (until due for a(n) Rapid A1C check) -> Calculate quantity and refills manually. They could not be estimated due to missing or unreadable information. Last qualifying visit: 10/22/2016 (with GAGANDEEP MICHAUD) Next scheduled visit: None Rapid A1C : 8.5 % on 09/15/2016 PATIENT IS DUE FOR: - HBA1C (PN ONLY) (Sent to [facility]) Powered by [employer], Reference: [id number], 12/03/2016 2:46:31 PM CDT, Pool: MANUEL MOORE ([id number]) documented in this encounter Plan of Treatment Not on filedocumented as of this encounter Visit Diagnoses Diagnosis Uncontrolled type 2 diabetes mellitus wi thout complication, with long-term current use of insulin documented in this encounter Care Teams Kitchen Hand Relationship Specialty Start Date End Date Gagandeep Michaud MD PCP - General 05/17/12 [address] [facility] [place] [address] Vane Zarate Psychiatrsamantha Psychiatry 03/22/12 documented as of this encounter
--- OUTSIDE RECORDS SUMMARY | 2022-02-12 12:07 | XMS_ITS | Encounter Summary ---
:1970 Author Organization [employer] Address [address], [place] [address] Care Team Providers Name Role Phone Gagandeep Hinojosa MD Primary Care Provider Reason for Visit Reason Onset Date Comments [facility] Phone Visit 07/14/2016 Encounter Details Date Type Department Care Team Description 07/14/2016 Care Coord Phone [facility] Deborah Rodrigues, [facility] Phone Visit [facility] [address] [facility] . [address] [place] [address] [place] [address] [phone] Social History Tobacco Use Types Packs/Day Years Used Date Smoking Tobacco: Every Day Cigarettes 0 25 Smokeless Tobacco: Former Qu it: 10/25/2012 Comments: Smoking History Packs/day: Alcohol Use Standard Drinks/Week Comments No 0 (1 standard drink = 0.6 oz pure Alcoho lic Drinks/day: Amount:0; alcohol) Freq:Never; Sex Assigned at Date Recorded Not on file documented as of this encounter Progress Notes Deborah Rodrigues, [facility] - 07/14/2016 1:30 PM CDT Dust Mill Operator - Phone Call Contact with: Rustam Reason for call: Care Coordination Discussion/actions: Got an appointment scheduled with KARLEY, Dr. Gladys Longoria, on 07/20 at 10:30. Called Rustam and gave him this information. He agreed to be at this appointment and said that he had transportation. He will call [facility] and check-in next week to discuss how it went. Rustam reports everything else is going fine. Denied any thoughts of suicide. Shared plan: -Therapy appointment 07/20 at 10:30. -[facility] follow-up as needed. Pt verbalized understanding and agreed with plan of care and follow up. documented in this encounter Plan of Treatment Not on filedocumented as of this encounter Visit Diagnoses Diagnosis Health [facility], active care coordinati on - Primary documented in this encounter Care Teams Cordage Sales Representative Relationship Specialty Start Date End Date Gaagndeep Hinojosa MD PCP - General 05/17/12 [facility] [place] Ger[place] [address] Vane Zarate Psychiatrist Psychiatry 03/22/12 documented as of this encounter
--- OUTSIDE RECORDS SUMMARY | 2022-02-12 12:07 | XMS_ITS | Encounter Summary ---
:1970 Author Organization [email or web address] Address [address] [place] [address] Care Team Providers Name Role Phone Gagnadeep Hinojosa MD Primary Care Provider Encounter Details Date Type Department Care Team Description 09/07/2016 Lab Visit [facility] Uncontrolled type 2 diabetes mellitus with diabetic polyneuropathy, with long- term current use of insulin (HRC) [E11.42, Z79.4, E11.65]; [address] Hyperlipidemia LDL goal < 70 ; [place] [address] Essential hypertension [phone] Social History Tobacco Use Types Packs/Day Years [...] Associated Diagnosis Comme nts ALBUMIN/CREAT RATIO Routine 09/07/2016 10:26 Uncontrolled type 2 Results for this AM CDT diabetes mellitus with proce dure are in diabetic the results polyneuropathy, with section . long-term current use of insulin (HRC) [E11.42, Z79.4, E11.65] POCT GLYCOSYLATED STAT 09/07/2016 10:25 Uncontrolled type 2 Results for this HEMOGLOBIN (HB A1C) AM CDT diabetes mellitus wit h procedure are in diabetic the results polyneuropathy, with section . long-term current use of insulin (HRC) [E11.42, Z79.4, E11.65] LIPID PANEL AND Routine 09/07/2016 10:25 Hyperlipidemia LDL Re sults for this DIRECT LDL(IF AM CDT goal < 70 procedure are in NEEDED) the results section. CREATININE / GFR Routine 09/07/2016 10:25 Essential hypertensi on Results for this AM CDT procedure are i n the results section. ELECTROLYTE PANEL Routine 09/07/2016 10:25 Essential hypertens ion Results for this AM CDT procedure are i n the results section. EXTRA SERUM STAT 09/07/2016 10:20 Results for this SEPARATOR TUBE AM CDT procedure are in (YELLOW) the results section. documented in this encounter Results (ABNORMAL) Microalb/Creat Ratio (09/07/2016 10:26 AM CDT) [facility] Time Signature Microalbumin 102.5 mg/L PN SOFT Urine U Creat Random 263 mg/dL PN SOFT Microalbumin/Crea 39.0 (H) 0.0 - PN SOFT tinine Ratio 30.0 Specimen Anatomical Collection Method Collection Time Receive d Time (Source) Location / / Volume Laterality Urine specimen 09/07/2016 10:26 7 2:29 (specimen) AM CDT PM CDT Narrative PN SOFT - 09/07/2016 3:26 PM CDT Performed at [facility], [address] [place] [address] CLIA number [id number] Gagandeep Hinojosa MD LAB_1 Performing Organization Address City/State/ZIP Code Phon e Number PN SOFT [address] [place], [place] [address] [phone] (ABNORMAL) Creatinine / GFR (09/07/2016 10:25 AM CDT) Analysis Performed At Patho logist [...] Time (Source) Location / / Volume Laterality 09/07/2016 10:25 09/07/2016 2:29 AM CDT PM CDT Narrative PN SOFT - 09/07/2016 3:04 PM CDT Performed at [facility], [address] [place] [address] CLIA number [id number] Gagandeep Hinojosa MD LAB_1 Performing Organization Address [facility] Phon e Number PN SOFT [address] [place] [address] (ABNORMAL) Electrolyte Panel (09/07/2016 10:25 AM CDT) P athologist Signature Sodium 133 (L) 136 - 145 PN SOFT mmol/L Potassium 5.1 3.5 - 5.2 PN SOFT mmol/L Chloride 98 98 - 109 PN SOFT mmol/L CO2 23 22 - 31 PN SOFT mmol/L Specimen Anatomical Collection Method Collection Time Receive d Time (Source) Location / / Volume Laterality 09/07/2016 10:25 09/07/2016 2:29 AM CDT PM CDT Narrative PN SOFT - 09/07/2016 3:04 PM CDT Performed at [facility], [address] [place], [place] [address] CLIA number [id number] Gagandeep Hinojosa MD LAB_1 Performing Organization Address [facility] Phon e Number PN SOFT [address] [place] [address] (ABNORMAL) Lipid Panel and Direct LDL(If Needed) (09/07/2016 10:25 AM CDT) Patholo gist Method Time Signature Cholesterol 128 0 - 199 PN SOFT mg/dL Triglycerides 176 (H) 4 - 149 PN SOFT mg/dL HDL Cholesterol 33 (L) >39 mg/dL PN SOFT Cholesterol/HDL 3.9 PN SOFT Ratio Screen LDL Calculated 60 19 - 130 PN SOFT mg/dL Length Of Fast 12.0 PN SOFT Specimen Anatomical Collection Method Collection Time Receive d Time (Source) Location / / Volume Laterality 09/07/2016 10:25 09/07/2016 2:29 AM CDT PM CDT Narrative PN SOFT - 09/07/2016 3:04 PM CDT Performed at [facility], [address] [place] [address] CLIA number [id number] Gagandeep Hinojosa MD LAB_1 Performing Organization Address [facility] Phon e Number PN SOFT [address] [place] [address] (ABNORMAL) POCT Glycosylated Hemoglobin (HB A1C) (09/07/2016 10:25 AM CDT) [facility] gist Method Time Signature Glycosolated HGB 8.3 (H) 4.0 - 5.6 PN SOFT A1C (POC) % Comment: The Rapid A1c test is designed for monit oring patients with an established diagnosis of diabetes jasen litus. ??The rapid method is not suitable to establish the intial diagnosis of diabetes melitus. Specimen Anatomical Collection Method Collection Time Receive d Time (Source) Location / / Volume Laterality 09/07/2016 10:25 09/07/2016 AM CDT 10:25 AM CDT Narrative PN SOFT - 09/07/2016 10:35 AM CDT Performed at [facility], [address] [place] [address] CLIA number [id number] Gagandeep Hinojosa MD LAB_1 Performing Organization Address [facility] Phon e Number PN SOFT [address] [place] [address] Extra Serum Separator Tube (yellow) (09/07/2016 10:20 AM CDT) P athologist Signature Extra SST Top Drawn PN SOFT Drawn Specimen (Source) Anatomical Location Collection Method / Collectio n Time Received Time / Laterality Volume Narrative PN SOFT - 09/07/2016 10:20 AM CDT Performed at [facility], [address] [place] [address] CLIA number [id number] Gagandeep Hinojosa MD LAB_1 Performing Organization Address [facility] Phon e Number PN SOFT [address] [place] [address] documented in this encounter Visit Diagnoses Diagnosis Uncontrolled type 2 diabetes mellitus wi th diabetic polyneuropathy, with long-term current use of insulin (HRC) [E11.42, Z7 9.4, E11.65] Hyperlipidemia LDL goal < 70 Other and unspecified hyperlipidemia Essential hypertension (HRC) Unspecified essential hypertension documented in this encounter Care Teams Machine Packaging Technician Relationship Specialty Start Date End Date Gagandeep Hinojosa MD PCP - General 05/17/12 [address] [facility] [place] [id number] Vane Zarate Psychiatrsamantha Psychiatry 03/22/12 documented as of this encounter
--- OUTSIDE RECORDS SUMMARY | 2022-02-12 12:07 | XMS_ITS | Encounter Summary ---
:1970 Author Organization [employer] Address [address] [place] [address] Care Team Providers Name Role Phone Gagandeep Hinojosa MD Primary Care Provider Reason for Visit Reason Onset Date Comments [facility] Phone Visit 07/15/2016 Encounter Details Date Type Department Care Team Description 07/15/2016 Care Coord Phone [place] [facility] Phone Visit Medicine [address] [facility] [address] [facility] [place] [address] [place] [address] [phone] Social History Tobacco Use Types Packs/Day Years [...] encounter Progress Notes Judy Pittman RN - 07/15/2016 12:58 PM CDT RN Cad Manager - Diabetes Follow-Up Current diabetes medication regimen: Tresiba 70 units in AM ?? Novolin R 70 BID Metformin 500 mg BID (unable to tolerate full therapeutic dose secondary to GI side effects) CURRENT GLUCOSE PATTERNS: since 07/14/16 Fastin, 162 Before lunch: 74, 71 Before dinner: 153 Before bed: 102 Hypoglycemia (previous two weeks): two readings in the 's Assessment/education: Rustam called today to report another episode of hypoglycemia. We spoke yesterday and decreased his insulin dosing, but his BG still decreased into the low 70's today. He used 3 pieces of hard candy to correct his low and is feeling better. Rustam is scheduled to see endocrinology next week. He would like to attend DM education, but prefersto stay in [place]. I will initiate a referral to [facility]. Teach back method used to verify understanding. Shared plan: Continue Tresiba to 70 units in AM. Per DM SO, decrease Novolin R to 68 units BID. SMBG qid as directed, record readings. Endocrinology follow up scheduled 07/19/16. Referral to [facility] for DM Education. Phone follow up as needed. Call if sx of hypoglycemia or glucose readings < 70 mg/dL. Rustam verbalized understanding and agreed with plan of care and follow up. documented in this encounter Plan of Treatment Not on filedocumented as of this encounter Visit Diagnoses Diagnosis Health retirement, active care coordinati on - Primary Uncontrolled type 2 diabetes mellitus wi th microalbuminuria, with long-term current use of insulin documented in this encounter Care Teams Publication Director Relationship Specialty Start Date End Date Gagandeep Hinojosa MD PCP - General 05/17/[address] [place], [place] [address] [address] Vane Zarate Psychiatrist Psychiatry 03/22/12 documented as of this encounter
--- OUTSIDE RECORDS SUMMARY | 2022-02-12 12:07 | XMS_ITS | Encounter Summary ---
:1970 Author Organization [employer] Address [address], [place] [address] Care Team Providers Name Role Phone Gagandeep Hinojosa MD Primary Care Provider Reason for Referral Procedure/Equipment (Routine) - Closed Specialty Diagnoses / Procedures Referred By Contact Refer red To Contact Diagnoses Paresthesia of lower limb Gagandeep Hinojosa MD [address] [place] [address] Referral ID Status Reason Start Date Expiration Date Visits Requ ested Visits Authorized [id number] Closed 09/07/2016 12/07/2017 1 1 Scheduling Instructions Your provider has recommended an appoint ment with [facility]. You may call [phone] to sche dule your appointment. If you do not schedule an appointment within the next 1 to 3 sine days, we will call you to help arrange your appointment. We suggest you call [employer] about your coverage and benefits for this appointme nt. Reason for Visit Reason Comments Diabetes LEG PAIN 1 month, left Encounter Details Date Type Department Care Team Description 09/07/2016 Office Visit Gagandeep Storm type 2 diabetes mellitus without complication, with long-term current use of insulin (HRC) [E11.65,Z79.4] (Primary Dx); Romario Rubio MD Paresthesia of lower limb; [address] [place] [address] [facility] Type 2 d iabetes mellitus without complication, with long-term current use of insulin (HRC) [E11.9, Z79.4]; [address]. 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 ([facility]); [place] Vigil [address] [place], [place] Essential hypertension; [phone] [address] Hyperlipidemia, unspecified hyperlipidem ia type ([facility]) [E78.5]; [phone] Tobacco use dis order (Work) Social History [...] Sign Reading Time Taken Comments Blood Pressure 116/74 09/07/2016 10:46 AM CDT Pulse 74 09/07/2016 10:46 AM CDT Temperature - - Respiratory Rate - - Oxygen Saturation - - Inhaled Oxygen Concentration - - Weight 106.1 kg (234 lb) 09/07/2016 10:46 AM CDT Height - - Body Mass Index 33.58 07/19/2016 1:31 PM CDT documented in this encounter Progress Notes Gagandeep Hinojosa MD - 09/07/2016 11:12 AM CDT SUBJECTIVE: 46 y.o. male presents today for diabetes check. A1c is slightly elevated over 3 months ago as he was without insulin for a brief amount of time. Aspirin:Continues to take aspirin daily. No stomach pains, no black or tarry stools. Blood pressure:Patient has not been checking blood pressures at home., No chest pain. and No dyspnea. Patient did not bring in outside blood pressure records. Blood sugars: Patient has been checking blood sugars. Blood sugars have not been at goal. Some symptomatic lows. Patient Patient did not bring in outside records.. Cholesterol: Lipids have been at goal. No muscle aches or pains. Tobacco: Patient reports that he has been smoking Cigarettes. He has been smoking about 0.00 packs per day for the past 25 years. He quit smokeless tobacco use about 3 years ago. Eye exam: Patient is up-to-date with eye exam. Patient does not have a history of retinopathy. No blurry or double vision Foot exam: Patient does not have a history of neuropathy. No sores, numbness, or tingling. He has been reporting some circumferential tingling of his left thigh dating back almost a year. No associated weakness. Does not extend below the level of the knee, and no contralateral symptoms Kidney health: does not have a history of nephropathy. No burning or pain with urination, no polyuria or polydipsia. Review of systems: See Above Medications: Reviewed and updated Outpatient Prescriptions Prior to Visit Medication Sig Note Dispense [...] QD No facility-administered medications prior to visit. Adverse Drug Reactions: Allergies Allergen Reactions ??? Aripiprazole permanent shaking in left arm ??? Gabapentin Suicidal thoughts ??? Haloperidol Shock ??? Nitroglycerin Nausea And Vomiting ??? Thiothixene Other, see comments Muscle spasm OBJECTIVE: Vital Signs: BP 116/74 mmHg Pulse 74 Wt 234 lb (106.142 kg) General: Alert, Oriented, NAD Head: Normocephalic. Eyes: [...] of the feet is within normal limits Left leg: No atrophy. He has hypoesthesia by filament testing from the medial thigh to the lateral thigh, but no involvement of the posterior thigh with normal sensation. He has normal sensation below the knee. Labs: Lab Results Component Value Date HGBA1C 10.9* 03/27/2015 UMICROALB 80.1 06/09/2016 CREATININE 0.60* 07/18/2015 Lab Results Component Value Date CHOL 123 06/09/2016 CHOL 3.2 06/09/2016 HDL 39* 06/09/2016 LDL 65 06/09/2016 TRI 97 06/09/2016 Lab Results Component Value Date ALT 23 11/04/2015 ALT 18 11/04/2015 AST 20 11/04/2015 AST 18 11/04/2015 HGB A1C Date Value Ref Range Status 03/27/2015 10.9* 4.0 - 5.6 % Final HEMOGLOBIN A1CRM Date Value Ref Range Status 11/25/2010 10.0* 0.0 - 6.0 % Final HEMOGLOBIN A1C RAPID Date Value Ref Range Status 12/09/2014 9.3* 4.0 - 5.6 % Final Comment: The Rapid A1c test is designed for monitoring patients with an established diagnosis of diabetes mellitus. The rapid method is not suitable to establish the intial diagnosis of diabetes melitus. HEMOGLOBIN A1C, POC Date Value Ref Range Status 07/19/2016 8.0* 4 - 5.6 % Final Lab Results Component Value Date/Time HGB A1C 10.9* 03/27/2015 1434 HEMOGLOBIN A1CRM 10.0* 11/25/2010 1618 HEMOGLOBIN A1C RAPID 9.3* 12/09/2014 1357 HEMOGLOBIN A1C, POC 8.0* 07/19/2016 1318 No components found for: GLUF Lab Results Component Value Date K 5.0 07/18/2015 CHLORIDE 99 07/18/2015 ASSESSMENT: 1. Type 2 diabetes, uncontrolled 2. Hypertension, controlled 3. Hyperlipidemia, controlled ICD-10-CM 1. Uncontrolled type 2 diabetes mellitus without complication, with long-term current use of insulin(HRC) [E11.65,Z79.4] E11.65 Microalb/Creat Ratio Z79.4 POCT Glycosylated Hemoglobin (HB A1C) 2. Paresthesia of lower limb R20.2 REHAB--EMG ELECTRICAL NERVE CONDUCTION STUDY (AMB) 3. Type 2 diabetes mellitus without complication, with long-term current use of insulin (HRC) [E11.9, Z79.4] E11.9 Z79.4 4. 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 Essential hypertension (HRC) I10 6. Hyperlipidemia, unspecified hyperlipidemia type (HRC) [E78.5] E78.5 Lipid Panel and Direct LDL(IfNeeded) 7. Tobacco use disorder (HRC) F17.200 PLAN: 1. Increase insulin by 5% EMG is pending The patient was discharged ambulatory and in stable condition. Diabetes measures: A1c Due: 3 months Foot Exam: 3 months Eye exam: Next May, Cholesterol: 6 months Electrolytes: 6 months UMAR: 3 months Aspirin: yes Tobacco: yes documented in this encounter Plan of Treatment Scheduled Referrals Name Type Priority Associated Diagnoses Order S chedule REHAB--EMG ELECTRICAL Referral Routine Paresthesia of lowe r Ordered: 09/07/2016 NERVE CONDUCTION STUDY limb (AMB) documented as of this encounter Results (ABNORMAL) Microalb/Creat Ratio (02/16/2017 11:01 AM CDT) [facility] [employer] Method Time Signature Microalbumin 124.6 mg/L PN SOFT Urine U Creat Random 78 mg/dL PN SOFT Microalbumin/Crea 159.7 (H) 0.0 - PN SOFT tinine Ratio 30.0 Specimen Anatomical Collection Method Collection Time Receive d Time (Source) Location / / Volume Laterality Urine specimen 02/16/2017 11:01 7 2:41 (specimen) AM CDT PM CDT Narrative PN SOFT - 02/16/2017 3:37 PM CDT Performed at [facility], [address] [place] [address] CLIA number [id number] Gagandeep Hinojosa MD LAB_1 Performing Organization Address City/State/ZIP Code Phon e Number PN SOFT [address] [place] [address] [phone] (ABNORMAL) Lipid Panel and Direct LDL(If Needed) (02/16/2017 10:54 AM CDT) [facility] [employer] Method Time Signature Cholesterol 179 0 - 199 PN SOFT mg/dL Triglycerides 185 (H) 4 - 149 PN SOFT mg/dL HDL Cholesterol 40 >39 mg/dL PN SOFT Cholesterol/HDL 4.5 PN SOFT Ratio Screen LDL Calculated 102 19 - 130 PN SOFT mg/dL Length Of Fast 15.0 PN SOFT Specimen Anatomical Collection Method Collection Time Receive d Time (Source) Location / / Volume Laterality 02/16/2017 10:54 02/16/2017 2:40 AM CDT PM CDT Narrative PN SOFT - 02/16/2017 3:18 PM CDT Performed at [facility], [address] [place] [address] CLIA number [id number] Gagandeep Hinojosa MD LAB_1 Performing Organization Address [facility] Phon e Number REINA EDMONDS [address] [place] [address] (ABNORMAL) POCT Glycosylated Hemoglobin (HB A1C) (02/16/2017 10:54 AM CDT) [facility] gist Method Time Signature Glycosolated HGB 11.8 (H) 4.0 - 5.6 PN SOFT A1C (POC) % Comment: The Rapid A1c test is designed for monit oring patients with an established diagnosis of diabetes jasen litus. ??The rapid method is not suitable to establish the intial diagnosis of diabetes melitus. Specimen Anatomical Collection Method Collection Time Receive d Time (Source) Location / / Volume Laterality 02/16/2017 10:54 02/16/2017 AM CDT 10:54 AM CDT Narrative PN SOFT - 02/16/2017 11:05 AM CDT Performed at [facility], [facility] [place] [address] CLIA number [id number] Gagandeep Hinojosa MD LAB_1 Performing Organization Address [facility] Phon e Number REINA EDMONDS [address] [place] [address] documented in this encounter Visit Diagnoses Diagnosis Uncontrolled type 2 diabetes mellitus wi thout complication, with long-term current use of insulin (HRC) [E11.65,Z79.4] - Pr imary Paresthesia of lower limb Disturbance of skin sensation Type 2 diabetes mellitus without complic ation, with long-term current use of insulin (HRC) [E11.9, Z79.4] intermediate current use of insulin (HRC) Encounter for long-term (current) use of insulin Essential hypertension (HRC) Unspecified essential hypertension Hyperlipidemia, unspecified hyperlipidem ia type (HRC) [E78.5] Tobacco use disorder (HRC) Tobacco use disorder Uncontrolled type 2 diabetes mellitus wi thout complication, with long-term current use of insulin (HRC) [E11.65,Z79.4] Hyperlipidemia, unspecified hyperlipidem ia type (HRC) [E78.5] documented in this encounter Care Teams Payroll Bookkeeper Relationship Specialty Start Date End Date Gagandeep Hinojosa MD PCP - General 05/17/12 [address] [facility] [place] [address] Vane Zarate Psychiatrist Psychiatry 03/22/12 documented as of this encounter
--- OUTSIDE RECORDS SUMMARY | 2022-02-12 12:07 | XMS_ITS | Encounter Summary ---
:1970 Author Organization [employer] Address [address], [place] [address] Care Team Providers Name Role Phone Gagandeep Hinojosa MD Primary Care Provider Reason for Visit Reason Onset Date Comments APPOINTMENT REQUEST 08/30/2016 Encounter Details Date Type Department Care Team Description 08/30/2016 Nurse Triage [facility] Gagandeep Hinojosa, APPOI NTMENT REQUEST Medicine [address] [facility] . [address] [place] [address] [place] [address] [phone] (Wo rk) Social History Tobacco Use Types [...] encounter Nursing Notes Gladys Reddy RN - 08/30/2016 1:17 PM CDT Spoke with pt. [facility] has appointment to see PCP on 09/07/16 for DM follow up. States would like to make sure when seen on 09/07/16 that PCP is aware would like to talk about ongoing numbness and shooting pain in upper L thigh that has had for quite some time. States that did bring up symptoms at lastappointment but states that forgot to follow up more with PCP about symptoms at that appointment. Declined to have symptoms triaged at this time. Preferred to discuss at upcoming appointment. Embroiderer Hand did update appointment reason to add L thigh numbness and pain. All questions answered. Verbalizes understanding of info. To call back if has further concerns/questions. documented in this encounter Plan of Treatment Not on filedocumented as of this encounter Visit Diagnoses Not on filedocumented in this encounter Care Teams Shank Turner Relationship Specialty Start Date End Date Gagandeep Hinojosa MD PCP - General 05/17/12 [facility] [facility] [place] [address] Vane Zarate Psychiatrist Psychiatry 03/22/12 documented as of this encounter
--- OUTSIDE RECORDS SUMMARY | 2022-02-12 12:07 | XMS_ITS | Encounter Summary ---
:1970 Author Organization [employer] Address [address], [place] [address] Care Team Providers Name Role Phone Gagandeep Hinojosa MD Primary Care Provider Reason for Referral (Routine) - Closed Specialty Diagnoses / Procedures Referred By Contact Refer red To Contact Diagnoses Dyslipidemia (HRC) Que Lal MD Procedures Outreach Nuclear Study [address] [facility] [address] [place] [address] Referral ID Status Reason Start Date Expiration Date Visits Requ ested Visits Authorized [id number] Closed 01/04/2017 04/05/2018 1 1 Encounter Details Date Type Department Care Team Description 12/31/2016 Hospital Encounter Heart & Vascular Dysli pidemia (Primary Center Nuclear Dx) Cardiology [address] [facility]. [place], [place] [id number] Social History Tobacco Use Types Packs/Day Years [...] tablet 1 012 tablet MOUTH DAILY . ONE TOUCH ULTRA 2 Use to test 4 times a 1 Each 0 017 meterIndications: day. Uncontrolled type 2 diabetes mellitus with diabetic polyneuropathy, with long-term current use of insulin ONETOUCH ULTRA CONTROL Use to test as 1 Each 7 solutionIndications: needed. Uncontrolled type 2 diabetes mellitus with diabetic polyneuropathy, with long-term current use of insulin atorvastatin (LIPITOR) Take 1 Tab by mouth 90 Tab 3 05/2605/17/2017 80 MG daily. tabletIndications: ASHD (arteriosclerotic heart disease) ([facility]), Hyperlipidemia with target LDL less than 70 ([facility]) Charcoal 260 Take 1 Tab by mouth 180 Cap 3 06/09/2016 MGIndications: two times a day. Flatulence divalproex (DEPAKOTE) Take 3,000 mg by 0 05/17/2017 500 MG enteric coated mouth. tabletIndications: Uncontrolled type 2 diabetes mellitus without complication, with long-term current use of insulin Insulin Degludec Inject 84 Units 9 mL 6 11/26/2016 (TRESIBA FLEXTOUCH) 200 subcutaneously daily. UNIT/ML SOPNIndications: Controlled type 2 diabetes with neuropathy ([facility]) insulin pen needle (BD Inject subcutaneously 100 Each 11 12/18/2018 ULTRAFINE JANET) 32G X 4 as needed for Blood MM Sugar >. insulin regular Inject 67 Units 45 mL 0 12/03/201603/26 (NOVOLIN R) 100 UNIT/ML subcutaneously two injectionIndications: times a day before Uncontrolled type 2 meals. diabetes mellitus without complication, with long-term current use of insulin Insulin Syringe-Needle Inject 1 Each 500 Each 3 06/09/2016 07/22/2017 U-100 (INSULIN SYRINGE subcutaneously 4 31G X 5/16) 31G X 5/16 times a day. 1 MLIndications: Uncontrolled type 2 diabetes mellitus without complication, with long-term current use of insulin lisinopril (ZESTRIL) 10 Take 1 Tab by mouth 90 Tab 3 05/17/2017 MG tabletIndications: daily. Atherosclerosis of coronary artery, angina presence unspecified, unspecified vessel or lesion type, unspecified whether chemehuevi or transplanted heart (HRC), Essential hypertension (HR) LORazepam (ATIVAN) 1 MG Take 1 mg by mouth. 0 10/201602/16/2017 tablet metFORMIN (GLUCOPHAGE) Take 2 Tabs by mouth 360 Tab 3 05/17/2017 500 MG two times a day with tabletIndications: meals for 90 days. Controlled type 2 diabetes with neuropathy (HRC) metoPROLOL succinate TAKE 1 TABLET BY 90 Tab 3 7 05/17/2017 (TOPROL XL) 50 MG 24 MOUTH EVERY 24 HOURS hour release tablet ONETOUCH DELICA Use to test 4 times a 400 Each 3 7 04/01/2020 lancetsIndications: day. Uncontrolled type 2 diabetes mellitus with diabetic polyneuropathy, with long-term current use of insulin QUEtiapine (SEROQUEL) Take 300 mg by mouth 0 02/16/2017 300 MG tablet daily at bedtime. risperiDONE (RISPERDAL) Take 4 mg by mouth 0 11/2308/04/2017 4 MG tablet daily (every 24 hours). documented as of this encounter Progress Notes Deborah Mathews - 12/31/2016 11:59 PM CDTEncounter addended by: Deborah Mathews on: 01/24/2017 2:18 PM
Actions taken: Sign clinical note, Result filed documented in this encounter Procedure Notes Deborah Mathews - 12/31/2016 11:59 PM CDTAssociated Order(s): OUTREACH NUCLEAR STUDY Results NM CARDIAC MPI STRESS TEST ( (Order [id number]) STRESS TEST PHARMACOLOGICAL ( (Order [id number]) Original Order Diagnosis: Dyslipidemia [E78.5 (ICD-10-CM)] Coronary artery disease, angina presence unspecified, unspecified vessel or lesion type, unspecifiedwhether chemehuevi or transplanted heart [I25.10 (ICD-10-CM)] Chest pain, rule out acute myocardial infarction [R07.9 (ICD-10-CM)] Dyslipidemia [E78.5 (ICD-10-CM)] Coronary artery disease, angina presence unspecified, unspecified vessel or lesion type, unspecifiedwhether chemehuevi or transplanted heart [I25.10 (ICD-10-CM)] Chest pain, rule out acute myocardial infarction [R07.9 (ICD-10-CM)] Reading Provider(s) Alexei Pratt MBBS PACs images are not viewable in [employer]. See text report below. 2017 12:32 PM - Alexei Pratt MBBS Narrative & Impression STRESS NUCLEAR PERFUSION SCAN - 12/31/2016 INDICATIONS: Coronary artery disease with history of inferior wall myocardial infarction. Dyslipidemia. Rest stress single isotope SPECT imaging was performed with Lexiscan walk protocol. BASELINE ELECTROCARDIOGRAM: Normal sinus rhythm. Normal electrocardiogram. With exercise and regadenoson, there was no ischemic ST-T changes noted. Baseline pulse is 84 beats per minute and blood pressure is 158/96. At peak pharmacologic/walk stress, his peak pulse rate was 130 beats per minute and the blood pressure is 1588/96. Double product was 20,540. FINDINGS: Pharmacologic procedure: Pharmacologic stress testing was performed with Lexiscan walk protocol. Myocardial perfusion imaging was performed at rest following the injection of 8.7 mCi of sestamibi. At peak pharmacologic effect, the patient was injected with 28.9 mCi of sestamibi. Gating post stress fozia graphic imaging was performed. FINDINGS: Overall quality of the study is fair. SPECT images demonstrate homogeneous tracer distribution throughout the myocardium. There is reduced uptake in the inferior wall both at rest and with stress, but with application of attenuation correction software, inferior wall uptake appears to be normal. Gated SPECT imaging shows left ventricular ejection fraction at 43% though visually, the left ventricular ejection fraction appears to be around 50% without any wall motion abnormalities. IMPRESSION: Myocardial perfusion imaging is normal. Overall left ventricular ejection fraction is calculated to be at 43% though visually, it appears to be around 50%. There are no regional wall motionabnormalities noted. Recommend an echocardiogram to evaluate left ventricular ejection fraction. Alexei Pratt M.D. [facility] and Collection STRESS TEST PHARMACOLOGICAL on 12/31/2016 Result History STRESS TEST PHARMACOLOGICAL on 2017 Hard Copy Result Report Open Hard Copy Results Report Patient Release Status: This result is not viewable by the patient. Patient Information Patient Name Sex Timur Krishnamurthy ([id number]) Male 1970 documented in this encounter Plan of Treatment Not on filedocumented as of this encounter Procedures Procedure Name Priority Date/Time Associated Diagnosis Comme nts OUTREACH NUCLEAR Routine 12/31/2016 2:16 PM Dyslipidemia Resul ts for this STUDY CDT procedure are i n the results section. documented in this encounter Results Outreach Nuclear Study (12/31/2016 2:16 PM CDT) Narrative PN POCT - 12/31/2016 2:16 PM CDT Deborah Mathews ? 01/24/2017 ??2:16 PM Results NM CARDIAC MPI STRESS TEST (Acce ssion [id number]) (Order [id number]) STRESS TEST PHARMACOLOGICAL ( (Order [id number]) Original Order Diagnosis: Dyslipidemia [E78.5 (ICD-10-CM)] Coronary artery disease, angina presence unspecified, unspecified vessel or lesion type, unspecified wheth er chemehuevi or transplanted heart [I25.10 (ICD-10-CM)] Chest pain, rule out acute myocardial in farction [R07.9 (ICD-10-CM)] Dyslipidemia [E78.5 (ICD-10-CM)] Coronary artery disease, angina presence unspecified, unspecified vessel or lesion type, unspecified wheth er chemehuevi or transplanted heart [I25.10 (ICD-10-CM)] Chest pain, rule out acute myocardial in farction [R07.9 (ICD-10-CM)] ?? Reading Provider(s) ?? Alexei Pratt MBBS PACs images are not viewable in [employer]. See text report below. ?? 2017 12:32 PM - Alexei Pratt MBBS Narrative & Impression ?? STRESS NUCLEAR PERFUSION SCAN - 7 INDICATIONS: Coronary artery disease wit h history of inferior wall myocardial infarction. Dyslipidemia . Rest stress single isotope SPECT imaging was performed with KnoCoiscan walk protocol. BASELINE ELECTROCARDIOGRAM: Normal sinus rhythm. Normal electrocardiogram. With exercise and regadenoson, there was no ischemic ST-T changes noted. Baseline pulse is 84 beats per mi nute and blood pressure is 158/96. At peak pharmacologic/walk st ress, his peak pulse rate was 130 beats per minute and the blood p ressure is 1588/96. Double product was 20,540. FINDINGS: Pharmacologic procedure: Pharmacologic s tress testing was performed with Lexiscan walk protocol. M yocardial perfusion imaging was performed at rest following the injection of 8.7 mCi of sestamibi. At peak pharmacologic effe ct, the patient was injected with 28.9 mCi of sestamibi. Gat ing post stress tomographic imaging was performed. FINDINGS: Overall quality of the study i s fair. SPECT images demonstrate homogeneous tracer distribut ion throughout the myocardium. There is reduced uptake in t he inferior wall both at rest and with stress, but with applicati on of attenuation correction software, inferior wall uptak e appears to be normal. Gated SPECT imaging shows left ventricul ar ejection fraction at 43% though visually, the left ventricula r ejection fraction appears to be around 50% without any wal l motion abnormalities. IMPRESSION: Myocardial perfusion imaging is normal. Overall left ventricular ejection fraction is calcula sarbjit to be at 43% though visually, it appears to be around 50%. T here are no regional wall motion abnormalities noted. Recommend an echocardiogram to evaluate left ventricular ejection fract ion. Alexei Pratt M.D. SS/[facility] Lab and Collection ?? STRESS TEST PHARMACOLOGICAL on 12/31/2016 Result History ?? STRESS TEST PHARMACOLOGICAL on 7 Hard Copy Result Report ?? Open Hard Copy Results Report Patient Release Status: ?? This result is not viewable by the hilaria ent. Patient Information ?? Patient Name Sex Timur Krishnamurthy ([id number]) Male 1970 Procedure Note Deborah Mathews - 12/31/2016 11:59 PM CDT Results NM CARDIAC MPI STRESS TEST (Acce ssion [id number]) (Order [id number]) STRESS TEST PHARMACOLOGICAL ( (Order [id number]) Original Order Diagnosis: Dyslipidemia [E78.5 (ICD-10-CM)] Coronary artery disease, angina presence unspecified, unspecified vessel or lesion type, unspecified whether chemehuevi or transplanted heart [I25.10 (ICD-10-CM)] Chest pain, rule out acute myocardial in farction [R07.9 (ICD-10-CM)] Dyslipidemia [E78.5 (ICD-10-CM)] Coronary artery disease, angina presence unspecified, unspecified vessel or lesion type, unspecified whether chemehuevi or transplanted heart [I25.10 (ICD-10-CM)] Chest pain, rule out acute myocardial in farction [R07.9 (ICD-10-CM)] Reading Provider(s) Alexei Pratt MBBS PACs images are not viewable in [employer]. See text report below. 2017 12:32 PM - Alexei Pratt MBBS Narrative & Impression STRESS NUCLEAR PERFUSION SCAN - 7 INDICATIONS: Coronary artery disease wit h history of inferior wall myocardial infarction. Dyslipidemia. Rest stress single isotope SPECT imaging was performed with Lexiscan walk protocol. BASELINE ELECTROCARDIOGRAM: Normal sinus rhythm. Normal electrocardiogram. With exercise and regadenoson, there was no ischemic ST-T changes noted. Baseline pulse is 84 beats per minute and blood pressure is 158/96. At peak pharmacologic/walk stress, his peak pulse rate was 130 beats per minute and the blood pressure is 1588/96 . Double product was 20,540. FINDINGS: Pharmacologic procedure: Pharmacologic s tress testing was performed with Lexiscan walk protocol. Myocardial perfusion imaging was performed at rest following the injection of 8.7 mCi of sestamibi. At peak pharmacologic effect, the patient was injected with 28 .9 mCi of sestamibi. Gating post stress tomographic imaging was performed. FINDINGS: Overall quality of the study i s fair. SPECT images demonstrate homogeneous tracer distribution throughout the myocardium. There is reduced uptake in the inferior wall both at rest and with stress, but with application of attenuation correction so ftware, inferior wall uptake appears to be normal. Gated SPECT imaging shows left ventricular ejection fraction at 43% though visually, the left ventricular ejection fraction appears to be around 50% without any wal l motion abnormalities. IMPRESSION: Myocardial perfusion imaging is normal. Overall left ventricular ejection fraction is calculated to be at 43% though visually, it appears to be around 50%. There are no regional wall motion abnormalities noted. Recommend an echoca rdiogram to evaluate left ventricular ejection fraction. Alexei Pratt M.D. SS[facility] Lab and Collection STRESS TEST PHARMACOLOGICAL on 12/31/2016 Result History STRESS TEST PHARMACOLOGICAL on 7 Hard Copy Result Report Open Hard Copy Results Report Patient Release Status: This result is not viewable by the hilaria ent. Patient Information Patient Name Sex Timur Schulz ([id number]) Male 1970 Que Lal MD PN CARDIAC SERVICES ORDERABL ES Performing Organization Address City/State/ZIP Code Phon e Number POCT PN POCT documented in this encounter Visit Diagnoses Diagnosis Dyslipidemia (HRC) - Primary Other and unspecified hyperlipidemia documented in this encounter Care Teams Sugar Cane Planter Machine Operator Relationship Specialty Start Date End Date Gagandeep Hinojosa MD PCP - General 05/17/12 [facility] [place] [address] Vane Zarate Psychiatrist Psychiatry 03/22/12 documented as of this encounter
--- OUTSIDE RECORDS SUMMARY | 2022-02-12 12:07 | XMS_ITS | Encounter Summary ---
:1970 Author Organization [employer] Address [address], [place] [address] Care Team Providers Name Role Phone Gagandeep Hinojosa MD Primary Care Provider Reason for Visit Reason Comments HC Face To Face Visit Encounter Details Date Type Department Care Team Description 07/13/2016 Care Coord Deborah Odom, [facility] Fa ce To Face Office Visit Medicine [facility] Visit [address] [facility] [address] [place] [address] [phone] Social History Tobacco Use Types Packs/Day Years Used Date Smoking Tobacco: Every Day Cigarettes 0 25 Smokeless Tobacco: Former Qu it: 10/25/2012 Comments: Smoking History Packs/day: Alcohol Use Standard Drinks/Week Comments No 0 (1 standard drink = 0.6 oz pure Alcoho lic Drinks/day: Amount:0; alcohol) Freq:Never; Sex Assigned at Date Recorded Not on file documented as of this encounter Progress Notes Deborah Rodrigues, [facility] - 07/13/2016 11:00 AM CDT Care Coordination Visit Pt: Timur Krishnamurthy Referred by: Gagandeep Hinojosa MD Reason for visit: Care Coordination Timur was seen alone. Discussion/actions: Met with Rustam for a scheduled [facility] appointment. We talked about a mental health support plan for Rustam. He stated that he is taking his medicine as prescribed and feels like he is making improvements. He was tearful when talking at times, but was able to discuss his supports at home. Rustam stated thathe is went to one therapy appointment at [facility], but felt like it was sterile and un-welcoming, so he cancelled his second appointment. Talked with Rustam about the importance of having an outlet to help him cope with how he is feeling. Rustam agreed that he needed to go back to see a therapist, but wasn't sure about going back to [facility]. I agreed to talk to Jimena French for a therapy appointment. Will follow-up with Rustam when an appointment becomes available. Rustam denied any thoughts of suicide and feels like following up with [facility] via the phone once a week would be beneficial. Denied any other concerns at this time. Patient barrier(s) to learning identified: Finance, Disease state, Emotional and Transportation. Patient received verbal instructions and written materials tailored to his or her preferred method of learning. Literacy level assessed (as appropriate). Interventions, including teach back, used to verify understanding. Patient Goal(s): 1. I want to have better physical and mental health. Goal: in process SHARED PLAN: -Follow-up Mental Health appointment. -Follow-up [facility] as needed. Pt verbalized understanding and agreed with plan of care and follow up. documented in this encounter Plan of Treatment Not on filedocumented as of this encounter Visit Diagnoses Diagnosis Health intermediate, active care coordinati on - Primary documented in this encounter Care Teams Event Staff Member Relationship Specialty Start Date End Date Gagandeep Hinojosa MD PCP - General 05/17/[address] [place] [address] [place] [address] Vane Zarate Psychiatrist Psychiatry 03/22/12 documented as of this encounter
--- OUTSIDE RECORDS SUMMARY | 2022-02-12 12:07 | XMS_ITS | Encounter Summary ---
:1970 Author Organization [employer] Address [address], [place] [address] Care Team Providers Name Role Phone Gagandeep Hinojosa MD Primary Care Provider Reason for Visit Reason Onset Date Comments RESULTS, TEST 10/21/2016 Encounter Details Date Type Department Care Team Description 10/21/2016 Telephone [facility] Gagandeep Hinojosa MD RESULTS, TEST [address] [facility] . [address] [place] [address] [place] [address] [phone] (Wo rk) Social History Tobacco Use Types [...] as of this encounter Nursing Notes Marci Oliveira RN - 10/21/2016 4:07 PM CDT Nurse called and spoke with the pt; advised pt that EMG results were abnormal per PCP per [facility] nurse, pt advised to schedule appt to discuss results and recommendations, pt verbalized understanding andappt was made for 10/22/16 Progress Notes Gagandeep Hinojosa MD (Physician) ? Family Practice Please call pt. Should have opinion from neurology. If OK, I will order consult Susan Paulson - 10/21/2016 3:46 PM CDT Lab/Radiology Results Primary Care Provider: Gagandeep Hinojosa MD What test result is needed? Electromyography When and where was test done? 10/13/16 [place] Who ordered the test? Gagandeep Hinojosa MD documented in this encounter Plan of Treatment Not on filedocumented as of this encounter Visit Diagnoses Not on filedocumented in this encounter Care Teams Gas Turbine Powerplant Mechanic Relationship Specialty Start Date End Date Gagandeep Hinojosa MD PCP - General 05/17/12 [address] [facility] [place] [address] Vane Zarate Psychiatrist Psychiatry 03/22/12 documented as of this encounter
--- OUTSIDE RECORDS SUMMARY | 2022-02-12 12:07 | XMS_ITS | Encounter Summary ---
:1970 [facility] Address [address] [place] [address] Care Team Providers Name Role Phone Gagandeep Hinojosa MD Primary Care Provider Reason for Visit Reason Onset Date Comments [facility] Phone Visit 07/12/2016 Encounter Details Date Type Department Care Team Description 07/12/2016 Care Coord Phone [facility] Deborah Rodrigues, [facility] Phone Visit [facility] [address] [facility] . [address] [place] [address] [place] [address] [phone] Social History Tobacco Use Types Packs/Day Years Used Date Smoking Tobacco: Every Day Cigarettes 0 25 Smokeless Tobacco: Former Qu it: 10/25/2012 Comments: Smoking History Packs/day: Alcohol Use Standard Drinks/Week Comments No 0 (1 standard drink = 0.6 oz pure Alcoho lic Drinks/day: Amount:0; alcohol) Freq:Never; Sex Assigned at Date Recorded Not on file documented as of this encounter Progress Notes Deborah Rodrigues, [facility] - 07/12/2016 2:30 PM CDT Business English Instructor - Phone Call Contact with: Rustam Reason for call: Care Coordination Discussion/actions: Received a phone call from Rustam, stating that he has canceled his mental healthfollow-up appointments at [facility]. He said that he did not feel like these appointments were beneficial, it was kind of a cold in sterile environment. Rustam said that his doctor put him on Ativan PRN, to help reduce his anxiety. He requested to meet with Care Coordination for counseling, as I feel comfortable with you. I explained that I do not do care home counseling, but could help coordinate appropriate mental health services. I agreed to meet with Rustam to discuss appropriate services and goover his coping skills while at home. Rustam agreed with this plan and denied any other concerns at this time. Shared plan: -[facility] appointment 07/13 at 11:00. Pt verbalized understanding and agreed with plan of care and follow up. documented in this encounter Plan of Treatment Not on filedocumented as of this encounter Visit Diagnoses Diagnosis Health mcfp, active care coordinati on - Primary documented in this encounter Care Teams Area Sales Manager Relationship Specialty Start Date End Date Gagandeep Hinojosa MD PCP - General 05/17/12 [address] [facility] [place] [address] Vane Zarate Psychiatrist Psychiatry 03/22/12 documented as of this encounter
--- OUTSIDE RECORDS SUMMARY | 2022-02-12 12:07 | XMS_ITS | Encounter Summary ---
:1970 Author Organization [employer] Address [address] [place] [address] Care Team Providers Name Role Phone Gagandeep Hinojosa MD Primary Care Provider Reason for Visit Reason Onset Date Comments [facility] Phone Visit 07/21/2016 Encounter Details Date Type Department Care Team Description 07/21/2016 Care Coord Phone [facility] Deborah Rodrigues, [facility] Phone Visit [facility] [address] [facility] . [address] [place] [address] [place] [address] [phone] Social History Tobacco Use Types Packs/Day Years Used Date Smoking Tobacco: Every Day Cigarettes 0 25 Smokeless Tobacco: Former Qu it: 10/25/2012 Comments: Smoking History Packs/day: Alcohol Use Standard Drinks/Week Comments No 0 (1 standard drink = 0.6 oz pure Alcoho lic Drinks/day: Amount:0; alcohol) Freq:Never; Sex Assigned at Date Recorded Not on file documented as of this encounter Progress Notes Deborah Rodrigues, [facility] - 07/21/2016 3:30 PM CDT Finish Mill Operator - Phone Call Contact with: Rustam Reason for call: Care Coordination Discussion/actions: Received a phone call from Rustam wanting to check-in. He stated things are not too shabby, and his mood continues to improve. He stated he went and saw Dr. Longoria for therapy, and felt very comfortable talking to her. Rustam is also thinking of attending a diabetic support groupone Tuesday a month, and believes this will be beneficial to him. Talked about continuing to keep structure in his day, which seems to help him. Rustam denied any other concerns at this time and agreed to call and check-in, in one week. Shared plan: -[facility] phone follow-up in one week. Pt verbalized understanding and agreed with plan of care and follow up. documented in this encounter Plan of Treatment Not on filedocumented as of this encounter Visit Diagnoses Diagnosis Health halfway, active care coordinati on - Primary documented in this encounter Care Teams Instrumentation Technician Relationship Specialty Start Date End Date Gagandeep Hinojosa MD PCP - General 05/17/12 [address] [place] [id number] Vane Zarate Psychiatrist Psychiatry 03/22/12 documented as of this encounter
--- OUTSIDE RECORDS SUMMARY | 2022-02-12 12:07 | XMS_ITS | Encounter Summary ---
:1970 Author Organization [employer] Address [address] [place] [address] Care Team Providers Name Role Phone Gagandeep Michaud MD Primary Care Provider Encounter Details Date Type Department Care Team Description 12/03/2016 Refill Order [place] [facility] [place] Gagandeep Michaud MD [address] [facility] . [address] [facility] [address] [place] [address] [phone] (Wo rk) Social History Tobacco Use Types Packs/Day Years Used Date Smoking Tobacco: Every Day Cigarettes 0 25 Smokeless Tobacco: Former Qu it: 10/25/2012 Comments: Smoking History Packs/day: Alcohol Use Standard Drinks/Week Comments No 0 (1 standard drink = 0.6 oz pure Alcoho lic Drinks/day: Amount:0; alcohol) Freq:Never; Sex Assigned at Date Recorded Not on file documented as of this encounter Nursing Notes Laura Mcclendon - 12/07/2016 9:37 AM CDT Lab orders previously signed. Labs to be addressed at future visit. Lab visit need. Letter pending in encounter. Please print. Interface, Out Surescripts Prov Query - 12/03/2016 2:46 PM CDT SCHEDULE THE FOLLOWING: - HBA1C (PN ONLY) BY: 12/14/2016 (Coming due as of 12/14/2016) - LAST QUALIFYING VISIT WITH GAGANDEEP MICHAUD: 10/22/2016 - NEXT SCHEDULED VISIT: None - NEXT LAB APPOINTMENT: None Powered by [employer], Reference: [id number], 12/03/2016 2:46:31 PM CDT, Pool: MANUEL MOORE ([id number]) documented in this encounter Plan of Treatment Not on filedocumented as of this encounter Visit Diagnoses Diagnosis Encounter for long-term (current) use of medications - Primary Encounter for long-term (current) use of other medications documented in this encounter Care Teams Field Technical Support Consultant Relationship Specialty Start Date End Date Gagandeep Michaud MD PCP - General 05/17/12 [address] [place] [address] Vane Zarate Psychiatrist Psychiatry 03/22/12 documented as of this encounter
--- OUTSIDE RECORDS SUMMARY | 2022-02-12 12:07 | XMS_ITS | Encounter Summary ---
:1970 Author Organization [employer] Address [address], [place] [address] Care Team Providers Name Role Phone Gagandeep Hinojosa MD Primary Care Provider Reason for Visit Reason Onset Date Comments UPDATE 08/19/2016 Encounter Details Date Type Department Care Team Description 08/19/2016 Telephone [facility] [address] Sabina Alcantar MBBS UPDATE Endocrinology [address] [place], [place] [address] [place] [address] [phone] Social History Tobacco Use Types Packs/Day Years Used Date Smoking Tobacco: Every Day Cigarettes 0 25 Smokeless Tobacco: Former Qu it: 10/25/2012 Comments: Smoking History Packs/day: Alcohol Use Standard Drinks/Week Comments No 0 (1 standard drink = 0.6 oz pure Alcoho lic Drinks/day: Amount:0; alcohol) Freq:Never; Sex Assigned at Date Recorded Not on file documented as of this encounter Nursing Notes Jaimee Hugo RN - 08/20/2016 10:08 AM CDT Informed pt of below message. In agreement of plan. No further questions. Glenys Alcantar MBBS - 08/20/2016 8:03 AM CDT I will suggest eliminating any snacks after supper, and to do some physical activity after supper tohelp morning numbers to improve. If that fails we will need to increase the Tresiba further, but I will hold off on doing that and work on diet/activity. Brian Shaw LPN - 08/19/2016 3:44 PM CDT Patient calling in blood sugars on 80 units of Tresiba and 64 units of Novolin R breakfast and dinner. 20 [phone] documented in this encounter Plan of Treatment Not on filedocumented as of this encounter Visit Diagnoses Not on filedocumented in this encounter Care Teams Hot Car Operator Relationship Specialty Start Date End Date Gagandeep Hinojosa MD PCP - General 05/17/12 [address] [place] [id number] Vane Zarate Psychiatrist Psychiatry 03/22/12 documented as of this encounter
--- OUTSIDE RECORDS SUMMARY | 2022-02-12 12:07 | XMS_ITS | Encounter Summary ---
:1970 Author Organization [employer] Address [address] [place] [address] Care Team Providers Name Role Phone Gagandeep Hinojosa MD Primary Care Provider Reason for Visit Reason Onset Date Comments Patient Preference Scheduling 09/07/2016 Encounter Details Date Type Department Care Team Description 09/07/2016 Telephone Verito Mackenzie Patient Preference Rehabilitative Medic nicholas Rubio MD Scheduling [id number] [place] [address] [place], [place] [phone] (Wo rk) Social History Tobacco Use Types [...] as of this encounter Nursing Notes Verito Mart MD - 09/07/2016 2:33 PM CDT Reviewed. Fine for EMG. Vanessa Menezes RN - 09/07/2016 1:26 PM CDT FYI- Patient scheduled for EMG on 10/13/16 and has heart stent. Keri Baker - 09/07/2016 11:39 AM CDT .PMREMGIMPLANT. Pt has a stint - heart. documented in this encounter Plan of Treatment Not on filedocumented as of this encounter Visit Diagnoses Not on filedocumented in this encounter Care Teams Nurse Instructor Relationship Specialty Start Date End Date Gagandeep Hinojosa MD PCP - General 05/17/12 [facility] [place], [place] [address] Vane Zarate Psychiatrist Psychiatry 03/22/12 documented as of this encounter
--- OUTSIDE RECORDS SUMMARY | 2022-02-12 12:07 | XMS_ITS | Encounter Summary ---
:1970 Author Organization [employer] Address [address] [place] [address] Care Team Providers Name Role Phone Gagandeep Hinojosa MD Primary Care Provider Encounter Details Date Type Department Care Team Description 02/16/2017 Lab Visit [facility] Uncontrolled type 2 diabetes mellitus without complication, with long-term current use of insulin (HRC) [E11.65,Z79.4]; [address] [facility] . Hyperlipidemia, unspecified hyperlipidemia type (HRC) [E78.5] [place] [address] Social History Tobacco Use Types Packs/Day Years [...] Associated Diagnosis Comme nts ALBUMIN/CREAT RATIO Routine 02/16/2017 11:01 Uncontrolled type 2 Results for this AM CDT diabetes mellitus procedure are in without complication, the re sults with long-term current secti on. use of insulin (HRC) [E11.65,Z79.4] POCT GLYCOSYLATED STAT 02/16/2017 10:54 Uncontrolled type 2 Results for this HEMOGLOBIN (HB A1C) AM CDT diabetes mellitus pro cedure are in without complication, the re sults with long-term current secti on. use of insulin (HRC) [E11.65,Z79.4] LIPID PANEL AND Routine 02/16/2017 10:54 Hyperlipidemia, Resul ts for this DIRECT LDL(IF AM CDT unspecified procedure are in NEEDED) hyperlipidemia type the resu lts ([facility]) [E78.5] section. EXTRA SERUM STAT 02/16/2017 10:51 Results for this SEPARATOR TUBE AM CDT procedure are in (YELLOW) the results section. documented in this encounter Results (ABNORMAL) Microalb/Creat Ratio (02/16/2017 11:01 AM CDT) [facility] [employer] Method Time Signature Microalbumin 124.6 mg/L PN SOFT Urine U Creat Random 78 mg/dL PN SOFT Microalbumin/Crea 159.7 (H) 0.0 - PN SOFT tinine Ratio 30.0 Specimen Anatomical Collection Method Collection Time Receive d Time (Source) Location / / Volume Laterality Urine specimen 02/16/2017 11:01 7 2:41 (specimen) AM CDT PM CDT Narrative PN SOFT - 02/16/2017 3:37 PM CDT Performed at [facility], [facility] [address] [place] [address] CLIA number [id number] Gagandeep Hinojosa MD LAB_1 Performing Organization Address City/State/ZIP Code Phon e Number PN SOFT [address] [place] [address] (ABNORMAL) Lipid Panel and Direct LDL(If Needed) (02/16/2017 10:54 AM CDT) [facility] [employer] Method Time Signature Cholesterol 179 0 - [...] - 02/16/2017 3:18 PM CDT Performed at [facility], [address] [place] [address] CLIA number [id number] Gagandeep Hinojosa MD LAB_1 Performing Organization Address [facility] Phon e Number PN SOFT [address] [place] [address] (ABNORMAL) POCT Glycosylated Hemoglobin (HB A1C) (02/16/2017 10:54 AM CDT) Patholo gist Method Time Signature Glycosolated HGB 11.8 [...] - 02/16/2017 11:05 AM CDT Performed at [facility], [address] [place] [address] CLIA number [id number] Gagandeep Hinojosa MD LAB_1 Performing Organization Address [facility] Phon e Number PN SOFT [address] [place] [address] Extra Serum Separator Tube (yellow) (02/16/2017 10:51 AM CDT) athologist Signature Extra SST Top Drawn PN SOFT Drawn Specimen (Source) Anatomical Location Collection Method / Collectio n Time Received Time / Laterality Volume Narrative PN SOFT - 02/16/2017 10:51 AM CDT Performed at [facility], [address] [place] [address] CLIA number [id number] Gagandeep Hinojosa MD LAB_1 Performing Organization Address [facility] Phon e Number PN SOFT [address] [place] [address] documented in this encounter Visit Diagnoses Diagnosis Uncontrolled type 2 diabetes mellitus wi thout complication, with long-term current use of insulin (HRC) [E11.65,Z79.4] Hyperlipidemia, unspecified hyperlipidem ia type (HRC) [E78.5] documented in this encounter Care Teams Knifeman Relationship Specialty Start Date End Date Gagandeep Hinojosa MD PCP - General 05/17/12 [facility] [place] [id number] Vane Zarate Psychiatrsamantha Psychiatry 03/22/12 documented as of this encounter
--- OUTSIDE RECORDS SUMMARY | 2022-02-12 12:07 | XMS_ITS | Encounter Summary ---
:1970 Author Organization [employer] Address [address] [place] [address] Care Team Providers Name Role Phone Gagandeep Hinojosa MD Primary Care Provider Reason for Visit Reason Onset Date Comments [facility] Phone Visit 07/27/2016 Encounter Details Date Type Department Care Team Description 07/27/2016 Care Coord Phone [facility] Deborah Rodrigues, [facility] Phone Visit [facility] [address] [facility] . [address] [place] [address] [place] [address] [phone] Social History Tobacco Use Types Packs/Day Years Used Date Smoking Tobacco: Every Day Cigarettes 0 25 Smokeless Tobacco: Former Qu it: 10/25/2012 Comments: Smoking History Packs/day: Alcohol Use Standard Drinks/Week Comments No 0 (1 standard drink = 0.6 oz pure Alcoho lic Drinks/day: Amount:0; alcohol) Freq:Never; Sex Assigned at Date Recorded Not on file documented as of this encounter Progress Notes Deborah Rodrigues, [facility] - 07/27/2016 3:30 PM CDT Forge Operator - Phone Call Contact with: Rustam Reason for call: Care Coordination Discussion/actions: Received a phone call from Rustam wanting to check-in. He stated that things aregoing really well right now. He said that he is taking his medications as prescribed, attending therapy and went to a Diabetes Support Group. Rustam said that he is working on structuring his days and spending time with family that is supportive. Rustam agreed to call and check-in over the next two weeks. Denied any other concerns at this time and said he felt safe. Shared plan: -[facility] follow-up as needed. Pt verbalized understanding and agreed with plan of care and follow up. documented in this encounter Plan of Treatment Not on filedocumented as of this encounter Visit Diagnoses Diagnosis Health fpc, active care coordinati on - Primary documented in this encounter Care Teams Tree Puller Relationship Specialty Start Date End Date Gagandeep Hinojosa MD PCP - General 05/17/12 [address] [facility] [place] [address] Vane Zarate Psychiatrist Psychiatry 03/22/12 documented as of this encounter
--- OUTSIDE RECORDS SUMMARY | 2022-02-12 12:07 | XMS_ITS | Encounter Summary ---
:1970 Author Organization [email or web address] Address [address], [place] [address] Care Team Providers Name Role Phone Gagandeep Hinojosa MD Primary Care Provider Reason for Referral Consult/Transfer Care (Routine) - Closed Specialty Diagnoses / Procedures Referred By Contact Refer red To Contact Diagnoses Controlled type 2 diabetes with neuropathy (HRC) Glenys Alcantar MBBS [address] [place], [place] [address] Referral ID Status Reason Start Date Expiration Date Visits Requ ested Visits Authorized [id number] Closed 07/19/2016 10/18/2017 1 1 Scheduling Instructions Your provider has recommended an appoint ment with [facility]. You may call [phone] to schedule yo appointment. If you do not schedule an appointment within the next 1 to 3 busin ess days, we will call you to help arrange your appointment. We suggest you call yo health insurance company about your coverage and benefits for this appointme nt. Reason for Visit Reason Comments Diabetes Consult/Transfer Care (Routine) - Closed Specialty Diagnoses / Procedures Referred By Contact Refer red To Contact Diagnoses Uncontrolled type 2 diabetes mellitus with hyperglycemia, with long-term current use of insulin (HRC) Gagandeep Hinojosa MD [address] [place] [address] Referral ID Status Reason Start Date Expiration Date Visits Requ ested Visits Authorized [id number] Closed 06/21/2016 09/20/2017 1 1 Encounter Details Date Type Department Care Team Description 07/19/2016 Office Visit [facility] [address] Glenys Alcantar ar I disorder ([facility]) (Primary Dx); Endocrinology REINA Belcher Controlled type 2 diabetes with neuropat hy ([facility]); [address] Yady French [address] [place] Atheroscl erosis of coronary artery, angina presence unspecified, unspecified vessel or lesion type, unspecified whether [place] or transplanted heart ([facility]); [address] Hyperlipidemia with target LDL less than 70; [facility], [facility], [place] [address] [phone] Social History Tobacco Use Types Packs/Day Years [...] Sign Reading Time Taken Comments Blood Pressure 124/72 07/19/2016 1:31 PM CDT Pulse 96 07/19/2016 1:31 PM CDT Temperature - - Respiratory Rate - - Oxygen Saturation - - Inhaled Oxygen Concentration - - Weight 105.3 kg (232 lb 1.6 oz) 07/19/2016 1:31 PM CDT Height 177.8 cm (5' 10) 07/19/2016 1:31 PM CDT Body Mass Index 33.3 07/19/2016 1:31 PM CDT documented in this encounter Progress Notes Glenys Alcantar MBBS - 07/19/2016 2:32 PM CDT Y[facility] Department of Endocrinology, Diabetes and Metabolism Clinic Note Name: Timur Krishnamurthy Date: 07/19/2016 Cc: The patient was referred by Dr Hinojosa for diabetes management. He came with his Rosetta. HPI: Timur Krishnamurthy is a 46 y.o. male #1 T2DM: Diagnosed at age of 40, has long history of non compliance before per his report, he has bipolar disorder and he does not drive because of that. He is currently using metformin 500 mg BID, tolerating that with no issues, Tresiba 70 units in the AM and regular insulin 68 units BID AC. He is trying to follow a low carb diet, and checks his FSBG 4 times daily, BG are generally running in the 100-150 range, but has a trend of hypoglycemia in the afternoon. A1C today was 8 (down from 12.4). Eye exam from 05/2016 was reported with no DM changes. He has peripheral neuropathy symptoms (mainly numbness and sometimes pain). Creatinine from 06/2015 was 0.6, had microalbuminuria then, takes lisinopril 10 mg daily BP today saa159/72. He takes atorvastatin 80 mg daily, he has history of CAD s/p AK and PCI in 2011. ROS: A 3 point ROS was done, and is negative unless specified otherwise in the HPI. Medications: medication list was reviewed and updated on the EMR. PMHx: Past Medical History Diagnosis Date ??? Tobacco Abuse #*LW 1 09/29/2002 ??? Bipolar I Dis NOS #*LW 2 09/15/2005 ??? Dyslipidemia #*LW 3 12/22/2009 ??? DM #*LW 4 12/22/2009 ??? CAD NOS #*LW 5 12/22/2009 ??? Liver Function Tests Abnormal #*LW 6 12/22/2009 ??? Pain Chest Wall #*LW 7 12/22/2009 ??? Tinea Corporis #*LW 8 09/04/2010 ??? Hypertriglyceridemia (HRC) 12/11/2010 ??? Type II or unspecified type diabetes mellitus with hyperosmolarity, uncontrolled (HRC) 12/11/2010 ??? Type II or unspecified type diabetes mellitus without mention of complication, uncontrolled (HRC) 12/11/2010 ??? Erectile dysfunction 01/22/2011 ??? DM (diabetes mellitus) type II uncontrolled with renal manifestation 01/22/2011 ??? DM (diabetes mellitus) type II uncontrolled with renal manifestation 01/22/2011 ??? DM (diabetes mellitus) type II uncontrolled with renal manifestation 01/22/2011 ??? ASHD (arteriosclerotic heart disease) (HRC) 05/04/2011 ??? S/P angioplasty with stent 05/26/2011 ??? Plantar wart 05/26/2011 ? ? Hyperlipidemia LDL goal < 70 06/08/2011 ??? Microalbuminuria 02/04/2012 ??? Mass on back 05/02/2012 ??? Anemia, unspecified 05/02/2012 ??? History of PTCA 04/2011 BMS RCA 09/16/2011 ??? LFTs abnormal 02/02/2012 FHx: No family history on file. SHx: Social History Substance Use Topics ??? Smoking status: Current Every Day Smoker -- 0.00 packs/day for 25 years Types: Cigarettes ??? Smokeless tobacco: Former User Quit date: 10/25/2012 Comment: Smoking History Packs/day: ??? Alcohol Use: No Comment: Alcoholic Drinks/day: Amount:0; Freq:Never; Physical Examination: Vitals: BP 124/72 mmHg Pulse 96 Ht 5' 10 (1.778 m) Wt 232 lb 1.6 oz (105.28 kg) BMI 33.30 kg/m2 General: The patient is alert and oriented, no acute distress. Lower extremity: No visible ulcers, no signs of infection, normal temperature and normal dorsalis pedis and posterior tibial pulses. No edema. He had normal vibration sensation on both feet. Labs: Reviewed and summarized in the HPI. Assessment and Plan: Timur Krishnamurthy is a 46 y.o. male: #1 T2DM: Better controlled, complicated by neuropathy, microalbuminuria, CAD and bipolar disorder. A1C 8%. Counseled the patient about the importance of DM control. Counseled him about diet and exercise, I will refer him to [facility] for further teaching. We will try to titrate up the metformin as long as he is able to tolerate that, increase it to 1000 mg in the AM and 500 mg in the PM for 1 week then 1 gm BID after that. Change R insulin to 64 units BID AC, we will titrate that down if possible. Continue Tresiba 70 units in the AM. Check FSBG 4 times daily. Report numbers in 2 weeks. RTC in 2 months, we can consider replacing short acting insulin with GLP-1 analogue. #2 microalbuminuria: continue lisinopril. #3 Dyslipidemia: continue atorvastatin. I have spent 45 minutes with the patient, >50% was spent on counseling. REINA Barrera Bait Maker documented in this encounter Plan of Treatment Scheduled Referrals Name Type Priority Associated Diagnoses Order S chedule Diabetes Education Referral Routine Controlled type 2 Orde red: 07/19/2016 Visit diabetes with neuropathy (HRC) documented as of this encounter Procedures Procedure Name Priority Date/Time Associated Comments Diagnosis POCT GLYCOSYLATED Routine 07/19/2016 1:18 PM Controlled type 2 Results for this HEMOGLOBIN (HGB A1C) CDT diabetes with proced ure are in neuropathy (HRC) the results section. documented in this encounter Results (ABNORMAL) POCT glycosylated hemoglobin (Hb A1C) (07/19/2016 1:18 PM CDT) P athologist Signature Hemoglobin A1C, 8.0 (A) 4 - 5.6 % PN POCT POC Cartridge Lot# [id number] PN POCT Specimen (Source) Anatomical Collection Method Collection Time Re ceived Time Location / / Volume Laterality Blood specimen 07/19/2016 1:18 PM (specimen) CDT Glenys HUANG PN POINT OF CARE TESTS Performing Organization Address City/State/ZIP Code Phon e Number POCT PN POCT documented in this encounter Visit Diagnoses Diagnosis Bipolar I disorder (HRC) - Primary Bipolar I disorder, most recent episode (or current) unspecified Controlled type 2 diabetes with neuropat hy ([facility]) Type II or unspecified type diabetes jasen litus with neurological manifestations, not stated as uncontrolled Atherosclerosis of coronary artery, dequan na presence unspecified, unspecified vessel or lesion type, unspecified whether [place] or transplanted heart (HR) Hyperlipidemia with target LDL less than 70 (HRC) Other and unspecified hyperlipidemia Microalbuminuria Proteinuria documented in this encounter Care Teams Poker Room Manager Relationship Specialty Start Date End Date Gagandeep Hinojosa MD PCP - General 05/17/12 [address] [facility] [place] [id number] Vane Zarate Psychiatrist Psychiatry 03/22/12 documented as of this encounter
--- OUTSIDE RECORDS SUMMARY | 2022-02-12 12:07 | XMS_ITS | Encounter Summary ---
:1970 Author Organization [facility] Address [address] [address] Care Team Providers Name Role Phone Gagandeep Hinojosa MD Primary Care Provider Reason for Visit Reason Comments Procedure Left lower extremity EMG Procedure/Equipment (Routine) - Closed Specialty Diagnoses / Procedures Referred By Contact Refer red To Contact Diagnoses Paresthesia of lower limb Gagandeep Hinojosa MD [address] [place] [address] Referral ID Status Reason Start Date Expiration Date Visits Requ ested Visits Authorized [id number] Closed 09/07/2016 12/07/2017 1 1 Encounter Details Date Type Department Care Team Description 10/13/2016 Procedure Visit Verito Mackenzie Procedure (L eft Rehabilitative Ladi Rubio MD lower extremity Medicine [address] [place] [address] Dr EMG) [address] [place] [address] [phone] Social History Tobacco Use Types Packs/Day Years Used Date Smoking Tobacco: Every Day Cigarettes 0 25 Smokeless Tobacco: Former Qu it: 10/25/2012 Comments: Smoking History Packs/day: Alcohol Use Standard Drinks/Week Comments No 0 (1 standard drink = 0.6 oz pure Alcoho lic Drinks/day: Amount:0; alcohol) Freq:Never; Sex Assigned at Date Recorded Not on file documented as of this encounter Progress Notes Verito Mart MD - 10/13/2016 2:00 PM CDT Exam Date: 10/13/2016 Name: Timur Krishnamurthy MR#: [id number] Gender: Male Date of : 1970 Age: 46 y Referring Physician: Gagandeep Hinojosa MD Height: Examining Physician: Verito Mart M.D. Subjective: The patient presents with complaints of 2 year history of noting numbness/pain in the anterior left thigh. He has a history of DM but only notes the numbness/pain in the thigh region. No significant back pain. Notes no radicular pain. Sometimes feels weak in the leg when walking secondary to the pain. Medications/Allergies: Reviewed Past medical history: Reviewed EPIC Objective: Pleasant gentleman in no apparent distress. Strength bilateral lower extremities normal. He does appear to have decreased sensation to light touch and pinprick in the anterior left thigh. Reflexes: knees normal bilaterally Ankle jerks: diminished bilaterally Impression: The study is abnormal of the left lower extremity. There is evidence for a length dependent sensorimotor peripheral neuropathy. There is no electrophysiologic evidence of a left lumbosacral radiculopathy or plexopathy. Clinically, there does appear to be decreased sensation primarily in the lateral femoral cuntaneous neuropathy. This EMG can not exclude a lateral sensory femoral neuropathy. Summary: The left peroneal motor nerve conduction study showed slowed conduction velocity. The left tibial motor nerve conduction study showed slowed conduction velocity. The left sural sensory nerve conduction study was not obtained. The concentric needle examination of the left lower extremity and low lumbar paraspinal muscles werenormal. Plan: Follow up as per primary provider. Gagandeep Hinojosa MD - 10/13/2016 2:00 PM CDT Please call pt. Should have opinion from neurology. If OK, I will order consult documented in this encounter Plan of Treatment Not on filedocumented as of this encounter Visit Diagnoses Diagnosis Polyneuropathy - Primary Unspecified hereditary and idiopathic pe ripheral neuropathy Diabetic polyneuropathy associated with type 2 diabetes mellitus (HRC) documented in this encounter Care Teams Attending Pathologist Relationship Specialty Start Date End Date Gagandeep Hinojosa MD PCP - General 05/17/12 [address] [facility] [place] [address] Vane Zarate Psychiatrist Psychiatry 03/22/12 documented as of this encounter
--- OUTSIDE RECORDS SUMMARY | 2022-02-12 12:07 | XMS_ITS | Encounter Summary ---
:1970 Author Organization [employer] [employer] Address [address] [address] Care Team Providers Name Role Phone Gagandeep Hinojosa MD Primary Care Provider Reason for Visit Reason Onset Date Comments Refill 11/26/2016 Encounter Details Date Type Department Care Team Description 11/26/2016 Refill [facility] [address] MBBS Refill Endocrinology [address] [place] [address] [place] [address] [phone] Social History Tobacco Use Types Packs/Day Years Used Date Smoking Tobacco: Every Day Cigarettes 0 25 Smokeless Tobacco: Former Qu it: 10/25/2012 Comments: Smoking History Packs/day: Alcohol Use Standard Drinks/Week Comments No 0 (1 standard drink = 0.6 oz pure Alcoho lic Drinks/day: Amount:0; alcohol) Freq:Never; Sex Assigned at Date Recorded Not on file documented as of this encounter Nursing Notes Herrera Braun RN - 11/26/2016 3:34 PM CDT rx faxed Sasha Saucedo - 11/26/2016 3:12 PM CDT Last visit: 09/15/16 Future visit: 01/05/17 documented in this encounter Plan of Treatment Not on filedocumented as of this encounter Visit Diagnoses Diagnosis 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
--- OUTSIDE RECORDS SUMMARY | 2022-02-12 12:08 | XMS_ITS | Encounter Summary ---
:1970 Author Organization [facility] Address [address] [place] [address] Care Team Providers Name Role Phone Gagandeep Hinojosa MD Primary Care Provider Reason for Visit Reason Onset Date Comments [facility] Phone Visit 07/05/2016 Encounter Details Date Type Department Care Team Description 07/05/2016 Care Coord Phone [facility] Deborah Rodrigues, [facility] Phone Visit [facility] [address] [facility] . [address] [place] [address] [place] [address] [phone] Social History Tobacco Use Types Packs/Day Years Used Date Smoking Tobacco: Every Day Cigarettes 0 25 Smokeless Tobacco: Former Qu it: 10/25/2012 Comments: Smoking History Packs/day: Alcohol Use Standard Drinks/Week Comments No 0 (1 standard drink = 0.6 oz pure Alcoho lic Drinks/day: Amount:0; alcohol) Freq:Never; Sex Assigned at Date Recorded Not on file documented as of this encounter Progress Notes Deborah Rodrigues, [facility] - 07/05/2016 3:30 PM CDT Furnace Room Supervisor - Phone Call Contact with: Rustam Reason for call: Care Coordination Discussion/actions: Received a phone call from Rustam wanting to check-in. He stated that his weekendwas pretty good, although he has primarily been hanging around his house. He said that his Seroquel medication is making him less tired, which is good. Rustam denied any thoughts of suicide and statedthat he feels like his mood is improving slowly, but surely. Talked with Rustam around the boundaries of checking in, as he has a Psychiatrist, therapist and RN Furnace Room Supervisor that check-in with himregularly. Rustam agreed to only call once a week, unless he felt it was an emergency. Rustam agreed to this plan and denied any other concerns at this time. Shared plan: -[facility] phone follow-up in one week. Pt verbalized understanding and agreed with plan of care and follow up. documented in this encounter Plan of Treatment Not on filedocumented as of this encounter Visit Diagnoses Diagnosis Health senior care, active care coordinati on - Primary documented in this encounter Care Teams Staff Mine Warfare Officer Relationship Specialty Start Date End Date Gagandeep Hinojosa MD PCP - General 05/17/12 1415 [facility] [place] [address] Vane Zarate Psychiatrist Psychiatry 03/22/12 documented as of this encounter
--- OUTSIDE RECORDS SUMMARY | 2022-02-12 12:08 | XMS_ITS | Encounter Summary ---
:1970 Author Organization [facility] Address [address] [place] [address] Care Team Providers Name Role Phone Gagandeep Hinojosa MD Primary Care Provider Reason for Referral Consult/Transfer Care (Routine) - Closed Specialty Diagnoses / Procedures Referred By Contact Refer red To Contact Diagnoses Uncontrolled type 2 diabetes mellitus with hyperglycemia, with long-term current use of insulin (HRC) Gagandeep Hinojosa MD [address] [facility] [place] [address] Referral ID Status Reason Start Date Expiration Date Visits Requ ested Visits Authorized [id number] Closed 06/21/2016 09/20/2017 1 1 Scheduling Instructions Your provider has recommended an appoint ment with [facility]. You may call [phone] to schedule your a ppointment. If you do not schedule an appointment within the next 1 to 3 busin ess days, we will call you to help arrange your appointment. We suggest you call [employer] about your coverage and benefits for this appointme nt. ERNAIL TECHNICIAN Reason for Visit Reason Onset Date Comments [facility] Phone Visit 06/21/2016 Encounter Details Date Type Department Care Team Description 06/21/2016 Care Coord Phone Judy Luke R N [facility] Phone Visit Medicine 1415 [facility] 14[address] [facility] . [place] [address] [place] [address] [phone] Social History Tobacco Use Types Packs/Day Years [...] encounter Progress Notes Judy Pittman RN - 06/21/2016 10:40 AM CST RN Feller Machine Operator - Diabetes Follow-Up Current diabetes medication regimen: Novolin N 80 units BID Novolin R 76 units BID Metformin 500 mg BID (unable to tolerate full therapeutic dose secondary to GI side effects) CURRENT GLUCOSE PATTERNS: since 06/15/16 Before breakfast: 104, 121, 202, 244, 173, 178, 97 30 minutes after lunch: 178, 212, 191, 167, 183, 146, 187 30 minutes after dinner: 128, 280, 178, 171, 160, 144 HS: 234, 288, 236, 77, 132 Hypoglycemia (previous two weeks): one Assessment/education: Rustam is calling to review his BG readings and report an episode of hypoglycemia. He reports he went to [facility] for evaluation of his dx Bipolar Disorder last week, as discussed. But, there weren't any open beds, so Rustam was sent home. In the meantime, Rustam states his gabapentin for anxiety was discontinued, due to having increased suicidal thoughts. Since stopping the gabapentin, Rustam agrees he is not having any further thoughts of self harm. He is scheduled to establish care with a new therapist next 06/28/16. For now, Rustam is making due at home and does not feel he is safe to drive when he is feeling this way, so he is reluctant to come into the clinic to meet with me. Rustam is tearful, stating he is finally motivated to get healthy and is working on his DM. He has resumed taking his insulin and is SMBG qid. Rustam reports his dad told him to check his BG 30 minutesafter meals. I requested he switch to SMBG before all meals and at HS instead. Rustam agreed. Becauseof Rustam's significant insulin resistance, I highly recommended he consult with endocrinology for DMmanagement. I had spoke with Dr Hinjoosa previously, and he agreed. I placed a referral to endocrinology and Rustam agreed to schedule. Rustam reports he woke up during the night sweating, so he drank a large glass of juice and checked his BG after the juice, the result was 97. I reviewed the glucose targets with Rustam and how to use Routine 15 to correct hypoglycemia. I recommended using 1/2 cup juice, or 5-6 crackers, or 3 pieces of hard candy. It is possible Rustam was feeling low because his BG has been running high for so long. I also reinforced the importance of taking his Regular insulin 30 minutes before meals, at least 8 hours apart. For now, I would like Rustam to continue his current insulin regimen, making sure not to skipmeals and focus on the timing of his insulin administration. If he has another low, he will call me and I will adjust his insulin. Rustam's thoughts were very scattered and he was clearly emotional. I tired my best to empathize and help calm him, also offering to have our Restorative Aide, Lesly Rodrigues, call later this week to check onhim. He agreed. Teach back method used to verify understanding. Shared plan: Scheduled with endocrinology on 07/19/16. Phone follow up with ERLIN Salas later this week. Therapy appt scheduled on 06/28/16. SMBG qid as directed, record readings. Crisis Line for any mental health emergency. Phone follow up as needed. Call if sx of hypoglycemia or glucose readings < 70 mg/dL. Rustam verbalized understanding and agreed with plan of care and follow up. ERNAIL TECHNICIAN documented in this encounter Plan of Treatment Scheduled Referrals Name Type Priority Associated Diagnoses Order [facility] Endocrinology Referral Routine Uncontrolled type 2 Ordered : 06/21/2016 Consult-Adults diabetes mellitus with hyperglycemia, with long-term current use of insulin (HRC) documented as of this encounter Visit Diagnoses Diagnosis Uncontrolled type 2 diabetes mellitus wi th hyperglycemia, with long-term current use of insulin (HRC) - [facility] residential, active care coordinati on documented in this encounter Care Teams Process Artist Relationship Specialty Start Date End Date Gagandeep Hinojosa MD PCP - General 05/17/12 [address] [place] [address] Vane Zarate Psychiatrist Psychiatry 03/22/12 documented as of this encounter
--- OUTSIDE RECORDS SUMMARY | 2022-02-12 12:08 | XMS_ITS | Encounter Summary ---
:1970 Author Organization [facility] Address [address] [place] [address] Care Team Providers Name Role Phone Gagandeep Hinojosa MD Primary Care Provider Reason for Visit Reason Onset Date Comments Medication Request 04/02/2016 Encounter Details Date Type Department Care Team Description 04/02/2016 Telephone [facility] Gagandeep Hinojosa, Medication Request 14[address] [facility] [place] [id number] [address] [facility] [phone] [place] [id number] (Wo rk) Social History Tobacco [...] this encounter Nursing Notes Jacqueline Vizcaino - 04/02/2016 4:45 PM CST Pt informed of his refill. Gagandeep Sosa MD - 04/02/2016 4:02 PM CST Please call pt. Done Oralia Hampton RN - 04/02/2016 12:30 PM CST Reason for Call: Medication Request. Next Steps: Review pended order for accuracy. Sign. Route to appropriate person/pool. Caller IS expecting a call back from Care Team. Additional Information: Patient requesting a 2 week supply of Depakote. Usually prescribed by psychiatrist but they are out until next week. Has one dose left for tomorrow. NDING SUPERVISOR Clair Simpson - 04/02/2016 12:14 PM CST See refill request NDING SUPERVISOR documented in this encounter Plan of Treatment Not on filedocumented as of this encounter Visit Diagnoses Diagnosis Bipolar I disorder (HRC) - Primary Bipolar I disorder, most recent episode (or current) unspecified documented in this encounter Care Teams Brush Material Preparer Relationship Specialty Start Date End Date Gagandeep Hinojosa MD PCP - General 05/17/12 14[address] [facility] [place] [address] Vane Zarate Psychiatrsamantha Psychiatry 03/22/12 documented as of this encounter
--- OUTSIDE RECORDS SUMMARY | 2022-02-12 12:08 | XMS_ITS | Encounter Summary ---
:1970 Author Organization [facility] Address [address], [place] [address] Care Team Providers Name Role Phone Gagandeep Hinojosa MD Primary Care Provider Encounter Details Date Type Department Care Team Description 05/03/2016 Notes/Orders [facility] Gagandeep Hinojosa MD 1415 [facility] . [address] [facility] [place] [address] [place] [address] [phone] (Wo rk) Social History Tobacco Use Types [...] on filedocumented in this encounter Care Teams Scale Balancer Relationship Specialty Start Date End Date Gagandeep Hinojosa MD PCP - General 05/17/[address] [facility] [place] [address] [place] Zarate Psychiatrist Psychiatry 03/22/12 documented as of this encounter
--- OUTSIDE RECORDS SUMMARY | 2022-02-12 12:08 | XMS_ITS | Encounter Summary ---
:1970 Author Organization [facility] Address [address] [place] [address] Care Team Providers Name Role Phone Gagandeep Hinojosa MD Primary Care Provider Reason for Visit Reason Onset Date Comments [facility] Phone Visit 06/17/2016 Encounter Details Date Type Department Care Team Description 06/17/2016 Care Coord Phone Judy Luke R N [facility] Phone Visit Medicine 1415 [facility] 1415 [facility] [place] [address] [place] [address] [phone] Social History Tobacco Use Types Packs/Day Years [...] encounter Progress Notes Judy Pittman RN - 06/17/2016 9:31 AM CST RN Portable Machine Sander - Diabetes Follow-Up Current diabetes medication regimen: Novolin N 80 units BID Novolin R 76 units BID Metformin 500 mg BID (unable to tolerate full therapeutic dose secondary to GI side effects) CURRENT GLUCOSE PATTERNS: Rustam reports he has not been testing his BG for quite some time. Hypoglycemia (previous two weeks): none, Rustam has chronically high BG readings. Assessment/education: Outreach to Rustam per the request of Dr Hinojosa to assist with DM management.Recent A1c result showed marked increased from 10.9 to 12.5. Rustam admits he has hasn't been proactive about his DM control from quite a while. He hasn't been SMBG. Rustam believes his dx Bipolar disorder is out of control. He is smoking more than ever. Rustam reports he was recently prescribed a new anxiety medication by Dr Huff, but still is not doing well. While Rustam understands he needs to get his DM under control, he states his mental health is more important at this time. Therefore, Rustam states he plans to go the hospital and pursue in- treatment. He notes his is on her way home to bring him to the hospital now. I agreed with Rustam and provided encouragement for him to get the mental health help he needs. Once he is out of the hospital, I encouraged Rustam to meet with me and try to come up with some options togain better control of his T2DM. Rustam agreed. Ultimately, I believe Rustam would benefit from a consult with endocrinology and ideally start U500 insulin. However, his financial barrier is still a concern. Teach back method used to verify understanding. Shared plan: Continue current insulin regimen. Plans to go to [facility] and pursue inpatient admission for mental health. Phone follow up to review DM options once mental health is stable. Call if sx of hypoglycemia or glucose readings < 70 mg/dL. Rustam verbalized understanding and agreed with plan of care and follow up. S MACHINE FEEDER documented in this encounter Plan of Treatment Not on filedocumented as of this encounter Visit Diagnoses Diagnosis [facility] [place], active care coordinati on - Primary Bipolar I disorder (HRC) Bipolar I disorder, most recent episode (or current) unspecified Uncontrolled type 2 diabetes mellitus wi th hyperglycemia, with long-term current use of insulin (HRC) documented in this encounter Care Teams Directory Compiler Relationship Specialty Start Date End Date Gagandeep Hinojosa MD PCP - General 05/17/12 [address] [place] [address] Vane Zarate Psychiatrist Psychiatry 03/22/12 documented as of this encounter
--- OUTSIDE RECORDS SUMMARY | 2022-02-12 12:08 | XMS_ITS | Encounter Summary ---
:1970 Author Organization [facility] Address [address] [place] [address] Care Team Providers Name Role Phone Gagandeep Hinojosa MD Primary Care Provider Reason for Visit Reason Onset Date Comments High Blood Sugar 07/07/2016 HYPOGLYCEMIA 07/08/2016 Encounter Details Date Type Department Care Team Description 07/07/2016 Nurse Triage [facility] Gagandeep Hinojosa High Blo od Sugar; Romario Rubio MD HYPOGLYCEMIA [address] [place] [address] Ave [phone] [place], [place] [address] Social History Tobacco Use [...] encounter Nursing Notes Gladys Reddy RN - 07/08/2016 12:50 PM CDT Protocol: DIABETES - LOW BLOOD [id number] Affirmative: Low blood sugar symptoms persist > 15 minutes AND using low blood sugar Care Advice Disposition of Go to ED/[facility] Now (with PCP acknowledgement) suggested. Spoke with pt. States that AM fasting blood sugar today was 157. Took insulins as directed this morning (Tresiba 74 units and Novolin R 72 units).15 minutes ago started to get sweaty and shaky after eating lunch so checked blood sugar. Blood sugar was 47 so drank 1/2 cup of orange juice and ate full size candy bar as has been advised to do with low blood sugars. Has not rechecked blood sugar at this time. Continues to be shaky and sweaty at this time. Has not urinated for 12 hours. No vomiting. Responding to all questions appropriately. Presently alone at home. Recommended going to ED now to be seen. States that did not have transportation to get to ED so would call to see if daughter who lives next door could drive to ED. Informed if daughter not able to get pt to ED should call 911. Pt called back short time after initial triage call to report that daughter was not able to take toED so was going to call 911 now. Pt's PCP advised that pt was calling 911 now due to above symptoms. Sasha Weller - 07/08/2016 12:39 PM CDT Pt calling today and states he is having problem with low blood sugar now. Pt is dizzy and has some shakiness. Oralia Kee RN - 07/07/2016 1:11 PM CDT Reason for Call: Blood glucose readings. Next Steps: Document further recommendations and route to appropriate person or pool. Caller IS NOT expecting a call back from Care Team. Additional Information: BG readings and further recommendations. Spoke with patient. See closed note on 07/01 by CC. Has been trying to test his BG consistently 4 times a day. Had one episode on 07/02 where BG was 49. This was right before he got up. [place] dizzy but no sweating. Drank orange juice and dizziness resolved. BG before breakfast today 182. One half hour before lunch 192. Has never been above 200. Had some changes in insulin dosing on 07/01. Per CC note: I advised Rustam to decrease his Tresiba insulin to 74 units (U200 is dosed in 2 unit increments).?? Also, Rustam requests to decrease his Regular insulin to 72 units BID because the line on the syringe at the 73 units is difficult to read. I agreed Patient has been using 76 units of Tresiba so will make the change to 74. Advised to call back if experiences low blood sugars and symptoms, above 200 or any other concerns. Verbalized understanding. Rianna Smiley - 07/07/2016 12:57 PM CDT Patient is calling regarding high blood sugars. Please advise. documented in this encounter Plan of Treatment Not on filedocumented as of this encounter Visit Diagnoses Not on filedocumented in this encounter Care Teams Sales Correspondence Clerk Relationship Specialty Start Date End Date Gagandeep Hinojosa MD PCP - General 05/17/12 [address] [place] [address] Vane Zarate Psychiatrist Psychiatry 03/22/12 documented as of this encounter
--- OUTSIDE RECORDS SUMMARY | 2022-02-12 12:08 | XMS_ITS | Encounter Summary ---
:1970 Author Organization [employer] Address [address] [facility] [place] [address] Care Team Providers Name Role Phone Gagandeep Hinojosa MD Primary Care Provider Reason for Visit Reason Comments MEDICATION THERAPY MANAGEMENT Encounter Details Date Type Department Care Team Description 04/14/2016 Telephone [place] Medication Maddy Crane, MEDICA TION THERAPY Management PharmD MANAGEMENT [address] [facility] . [address] [place] [address] [facility] [phone] [place] [address] (Wo rk) Social History Tobacco Use Types Packs/Day Years Used Date Smoking Tobacco: Every Day Cigarettes 0 25 Smokeless Tobacco: Former Qu it: 10/25/2012 Comments: Smoking History Packs/day: Alcohol Use Standard Drinks/Week Comments No 0 (1 standard drink = 0.6 oz pure Alcoho lic Drinks/day: Amount:0; alcohol) Freq:Never; Sex Assigned at Date Recorded Not on file documented as of this encounter Nursing Notes Maddy Crane, PharmD - 04/14/2016 3:35 PM CST Received a call from Rustam to follow-up on smoking cessation. Rustam reports that he started smoking again. Currently smoking 1-1.5 packs per day. He recently got in touch with [employer]uit [facility] and has nicotine 21, 14, and 7mg patches at home. Still has leftover nicotine gum. Feels motivated to quit. Realizedthat he needs to do this for himself, and not for anyone else. He plans to have ongoing support through is [employer] retail performance coach and would like to occasionally call me as well. He only has a 2 week supply ofnicotine 21mg patches at home and is requesting a refill today. Plan: 1) Quit Date: Ninfa Bourne - April 17, 2016 2) Nicotine 21mg patch and Nicotine 4mg gum Will follow-up as needed. Maddy Crane, Pharm.D. Medication Management Pharmacist Yaritza Medication Management CE TECHNOLOGY INSTRUCTOR documented in this encounter Plan of Treatment Not on filedocumented as of this encounter Visit Diagnoses Diagnosis Tobacco use disorder (HRC) - Primary Tobacco use disorder documented in this encounter Care Teams Biller Relationship Specialty Start Date End Date Gagandeep Hinojosa MD PCP - General 05/17/12 1415 [facility] [place] [address] Vane Zarate Psychiatrist Psychiatry 03/22/12 documented as of this encounter
--- OUTSIDE RECORDS SUMMARY | 2022-02-12 12:08 | XMS_ITS | Encounter Summary ---
:1970 Author Organization [employer] Address [address] [address] Care Team Providers Name Role Phone Gagandeep Hinojosa MD Primary Care Provider Reason for Visit Reason Onset Date Comments DIABETES, MELLITUS 07/04/2016 Encounter Details Date Type Department Care Team Description 07/04/2016 Nurse Triage [facility] Gagandeep Hinojosa, DIABE TOMMY, MELLITUS Medicine [address] [facility] . [address] [place] [address] [place], [place] [address] (Wo rk) Social History Tobacco Use Types [...] encounter Nursing Notes Yoana Riley RN - 07/04/2016 5:18 PM CDT Protocol: DIABETES - LOW BLOOD [id number] Affirmative: Low blood sugar prevention, questions about Disposition of Home Care suggested. Patient calling. Reports he is testing his BG 4 times a day. States he has 4 test strips left. Has arefill at the pharmacy waiting, but states he is unable to get them filled today due to the weather.Only has one BG he needs to complete tonight as he already ate dinner. Questioning if for some reason he had to skip a BG test, which time of day would be the best to miss? States he takes it in the morning when he gets up, at night when he goes to bed and before lunch and dinner. He does not have a Sliding Scale and does not dose insulin based on hi BG reading. PNNL advised morning and night would be the most, after that, he would need to decide which one, if any that he should eliminate until he can get his test strips. Advised as a nurse, PNNL advises he should be taking his BG as scheduled. Patient agrees with plan and denies other questions or concerns at this time. Yoana Riley RN - 07/04/2016 5:17 PM CDT documented in this encounter Plan of Treatment Not on filedocumented as of this encounter Visit Diagnoses Not on filedocumented in this encounter Care Teams Hematologist Oncologist Relationship Specialty Start Date End Date Gagandeep Hinojosa MD PCP - General 05/17/12 [facility] [place] [address] Vane Zarate Psychiatrist Psychiatry 03/22/12 documented as of this encounter
--- OUTSIDE RECORDS SUMMARY | 2022-02-12 12:08 | XMS_ITS | Encounter Summary ---
:1970 Author Organization [facility] Address [address] [place] [address] Care Team Providers Name Role Phone Gagandeep Hinojosa MD Primary Care Provider Reason for Visit Reason Onset Date Comments [facility] Phone Visit 06/22/2016 Encounter Details Date Type Department Care Team Description 06/22/2016 Care Coord Phone Judy Luke R N [facility] Phone Visit Medicine 1415 [facility] [address] [place] [address] [place] [address] [phone] Social History Tobacco Use Types Packs/Day Years [...] encounter Progress Notes Judy Pittman RN - 06/22/2016 10:32 AM CST RN Golf Club Weighter - Diabetes Follow-Up Current diabetes medication regimen: Novolin N 80 units BID Novolin R 76 units BID Metformin 500 mg BID (unable to tolerate full therapeutic dose secondary to GI side effects) CURRENT GLUCOSE PATTERNS: since 06/15/16 Fastin-244 Hypoglycemia (previous two weeks): 61 in the middle of the night Assessment/education: Rustam is calling to report he had an episode of hypoglycemia during the night,he felt shaky and was sweating. His BG reading was 61, so he drank some juice and ate a sandwich. Rustam has been inconsistent with taking his insulin the past, but reports he has been more consistent with his insulin at this dose for the last month. He's never noticed lows before. Rustam admits increased activity with pacing a lot and not sleeping much. Because his lows have been during the nightand are likely secondary to increased activity, I advised he decrease his NPH by 2 units to 78 unitsin the PM. Rustam agreed. Rustam is struggling with dx Bipolar Disorder. He has called the [facility] Crisis line and Lesly Rodrigues [facility] Golf Club Weighter about increased anxiety today. I reviewed the glucose targets again and how to use Routine 15 to correct hypoglycemia. I recommended using 1/2 cup juice, or 5-6 crackers, or 3 pieces of hard candy. If Rustam has another low, he will call me and I will adjust his insulin again. Teach back method used to verify understanding. Shared plan: Per DM SO, decrease PM dose of NPH to 78 units to correct nighttime lows. Call Nurseline for support with DM after hours. Call the Crisis Line for any mental health support or emergency. Call if sx of hypoglycemia or glucose readings < 70 mg/dL. Rustam verbalized understanding and agreed with plan of care and follow up. TING CLERK documented in this encounter Plan of Treatment Not on filedocumented as of this encounter Visit Diagnoses Diagnosis Health detention, active care coordinati on - Primary Bipolar I disorder (HRC) Bipolar I disorder, most recent episode (or current) unspecified documented in this encounter Care Teams Hat Presser Relationship Specialty Start Date End Date Gagandeep Hinojosa MD PCP - General 05/17/12 [address] [facility] [place] [address] Vane Zarate Psychiatrist Psychiatry 03/22/12 documented as of this encounter
--- OUTSIDE RECORDS SUMMARY | 2022-02-12 12:08 | XMS_ITS | Encounter Summary ---
:1970 Author Organization [facility] Address [address] [place] [address] Care Team Providers Name Role Phone Gagandeep Hinojosa MD Primary Care Provider Reason for Visit Reason Onset Date Comments [facility] Phone Visit 06/23/2016 Encounter Details Date Type Department Care Team Description 06/23/2016 Care Coord Phone Judy Luke R N [facility] Phone Visit Medicine 1415 [facility] [address] [place] [address] [place] [address] [phone] Social History Tobacco Use Types Packs/Day Years [...] encounter Progress Notes Judy Pittman RN - 06/23/2016 10:36 AM CST RN Skin Pass Operator - Diabetes Follow-Up Current diabetes medication regimen: Novolin N 80 units in AM and 78 units in PM Novolin R 76 units BID Metformin 500 mg BID (unable to tolerate full therapeutic dose secondary to GI side effects) CURRENT GLUCOSE PATTERNS: since 06/15/16 Fastin-244 Hypoglycemia (previous two weeks): 61 and 59, both in the middle of the night Assessment/education: Rustam is calling to report he had another episode of hypoglycemia during the night, he felt shaky but didn't sweat this time. His BG reading was 59, so he used Routine 15 as directed, and drank 1/2 cup juice and ate a hard boiled egg. Rustam reports his before lunch reading was 115 and he feels much better. Rustam has been struggling with dx Bipolar Disorder, but notes he is feeling better today. He reportshe got some decent sleep last night, going to bed at 9:00 PM and woke at 4:30 AM when his BG was low. He is using OTC Unisom an hour before bed and states it helped a lot. Rustam also went for a short walk this morning and plans to walk again this afternoon. He knows he can call the Crisis Line anytime he needs to and is planning to call Lesly tomorrow, for follow up (nain conversation). Teach back method used to verify understanding. Shared plan: Per DM SO, decrease PM dose of Regular to 74 units to correct nighttime lows. Call Nurseline for support with DM after hours. Call the Crisis Line for any mental health support or emergency. Call if sx of hypoglycemia or glucose readings < 70 mg/dL. Rustam verbalized understanding and agreed with plan of care and follow up. AL CHAIR ASSEMBLER documented in this encounter Plan of Treatment Not on filedocumented as of this encounter Visit Diagnoses Diagnosis Health snf, active care coordinati on - Primary Uncontrolled type 2 diabetes mellitus wi th hyperglycemia, with long-term current use of insulin (HRC) Bipolar I disorder (HRC) Bipolar I disorder, most recent episode (or current) unspecified documented in this encounter Care Teams Data Developer Relationship Specialty Start Date End Date Gagandeep Hinojosa MD PCP - General 05/17/12 [address] [facility] [place] Gerber [address] Vane Zarate Psychiatrist Psychiatry 03/22/12 documented as of this encounter
--- OUTSIDE RECORDS SUMMARY | 2022-02-12 12:08 | XMS_ITS | Encounter Summary ---
:1970 Author Organization [employer] Address [address] [place] [address] Care Team Providers Name Role Phone Gagandeep Hinojosa MD Primary Care Provider Reason for Visit Reason Onset Date Comments [facility] Phone Visit 06/30/2016 Encounter Details Date Type Department Care Team Description 06/30/2016 Care Coord Phone [facility] Deborah Rodrigues, [facility] Phone Visit [facility] [address] [facility] . [address] [place] [address] [place] [address] [phone] Social History Tobacco Use Types Packs/Day Years Used Date Smoking Tobacco: Every Day Cigarettes 0 25 Smokeless Tobacco: Former Qu it: 10/25/2012 Comments: Smoking History Packs/day: Alcohol Use Standard Drinks/Week Comments No 0 (1 standard drink = 0.6 oz pure Alcoho lic Drinks/day: Amount:0; alcohol) Freq:Never; Sex Assigned at Date Recorded Not on file documented as of this encounter Progress Notes Deborah Rodrigues, [facility] - 06/30/2016 3:45 PM CST Mold Builder - Phone Call Contact with: Julius Reason for call: Care Coordination Discussion/actions: Received a phone call from Julius, stating he wanted to check- in. Julius stated he is trying to stay positive , but continues to have a difficult time right now. He said he went to the emergency room last night because of his anxiety, but was not admitted. They did set him up with the medical center appointment, which he is planning on attending today at 5:30. Julius stated that he still is having difficulty sleeping, which makes it difficult for him to calm down. He said he also stopped smoking, as he cannot afford it, which has been an extra stressor for him. Spent some time talking with Julius about his coping skills, and he said he has been writing them down, which is helpful. Julius also stated he made it to his therapy appointment, and believes this is going to be beneficial for him. Julius requested that I continue to check in with him to see how things are going. He will call in one week. Shared plan: -[facility] phone follow-up in one week. Pt verbalized understanding and agreed with plan of care and follow up. NCT PSYCHOLOGY INSTRUCTOR documented in this encounter Plan of Treatment Not on filedocumented as of this encounter Visit Diagnoses Diagnosis Health penitentiary, active care coordinati on - Primary documented in this encounter Care Teams Computer Engineering Technician Relationship Specialty Start Date End Date Gagandeep Hinojosa MD PCP - General 05/17/12 [facility] [facility] [place] [address] Vane Zarate Psychiatrist Psychiatry 03/22/12 documented as of this encounter
--- OUTSIDE RECORDS SUMMARY | 2022-02-12 12:08 | XMS_ITS | Encounter Summary ---
:1970 Author Organization [employer] Address [address], [place] [address] Care Team Providers Name Role Phone Gagandeep Hinojosa MD Primary Care Provider Reason for Visit Reason Onset Date Comments Medication Request 02/25/2016 Jaxson Muhammad Encounter Details Date Type Department Care Team Description 02/25/2016 Telephone [facility] Gagandeep Hinojosa, Medic ation Request Medicine (Jaxson R) 1415 [facility] . [address] [place] [address] [place], [place] [address] (Wo rk) Social History Tobacco Use Types [...] encounter Nursing Notes Gagandeep Hinojosa MD - 02/25/2016 11:41 AM CDT Done Marco Antonio Malcolm MA - 02/25/2016 10:51 AM CDT PRIOR AUTHORIZATION OR CHANGE MEDICATIONS? Comment: Med not covered Pharmacy Name: [facility] Fax# or Address: [phone] Clinician Name: Ashish Drug Name/Strength: Humulin R U100 insulin Sig: administer 76 units subcutaneously twice daily before meals Formulary Alternative: Novolin R Insurance Carrier: [facility] is requesting to change medication to covered alternative Novolin R. Ok to change or start PA? Order for Novolin R pended incase you would like to switch. documented in this encounter Plan of Treatment Not on filedocumented as of this encounter Visit Diagnoses Diagnosis Uncontrolled type 2 diabetes mellitus wi thout complication, with long-term current use of insulin - Primary documented in this encounter Care Teams Cap Sewer Relationship Specialty Start Date End Date Gagandeep Hinojosa MD PCP - General 05/17/12 [address] [facility] [place] [address] Vane Zarate Psychiatrist Psychiatry 03/22/12 documented as of this encounter
--- OUTSIDE RECORDS SUMMARY | 2022-02-12 12:08 | XMS_ITS | Encounter Summary ---
:1970 Author Organization [employer] Address [address] [address] Care Team Providers Name Role Phone Gagandeep Hinojosa MD Primary Care Provider Reason for Visit Reason Onset Date Comments [facility] Phone Visit 06/22/2016 Encounter Details Date Type Department Care Team Description 06/22/2016 Care Coord Phone [facility] Deborah Rodrigues, [facility] Phone Visit [facility] [address] [facility] . [address] [place] [address] [place] [address] [phone] Social History Tobacco Use Types Packs/Day Years Used Date Smoking Tobacco: Every Day Cigarettes 0 25 Smokeless Tobacco: Former Qu it: 10/25/2012 Comments: Smoking History Packs/day: Alcohol Use Standard Drinks/Week Comments No 0 (1 standard drink = 0.6 oz pure Alcoho lic Drinks/day: Amount:0; alcohol) Freq:Never; Sex Assigned at Date Recorded Not on file documented as of this encounter Progress Notes Deborah Rodrigues, [facility] - 06/22/2016 2:30 PM CST Horticulture Superintendent - Phone Call Contact with: Rustam Reason for call: Care Coordination Discussion/actions: Rustam call back 2 more times, before he left a message on the 3rd call. I contacted him back, and he apologized for calling so many times. This is not like me to be calling so much. Rustam excited that he just has a lot going on right now, and it has been hard for him to deal with it. Rustam stated that he wanted to call back to let me know that he got a few hours of sleep , and he is feeling a little better. Rustam stated that he also took a walk, which she thinks helps calm him down a little bit. Discussed Rustam's calming/safety plan with him again, and he was able to verbalize what is helpful for him. Rustam stated that he was looking forward to attending therapy on Tuesday,which we will discuss during her phone and on Tuesday. I suggested that I could call him later this week to check in, as it seems he continues to have high anxiety. Rustam agreed that this would be a good plan, and he would really try not to call prior to that phone appointment. We agreed together thatI would call him on 06/24 to check-in. Rustam denied any other concerns at this time. Shared plan: -[facility] phone appointment 06/24. Pt verbalized understanding and agreed with plan of care and follow up. RAL GAS TRADER Deborah Rodrigues LICSW - 06/22/2016 12:00 PM CST Horticulture Superintendent - Phone Call Contact with: Rustam Reason for call: Care Coordination Discussion/actions: Rustam called back and said that he could not settle down, and thought he needed to talk to someone. Went over Rustam's calming plan again and he was able to verbalize things that would help him. Rustam stated that he did contact the crisis line and did a safety plan with them today. Rustam reports increased pacing around his house, and the thoughts that he need's to be talking to someone. Rustam stated that he still has not gotten any sleep, as it has been difficult for him to fallasleep. Rustam stated that he was going to take an [id number] sleeping medication, as his doctor had previously told him this may be beneficial. Rustam thanked me for checking in with him, and stated he did not need anything further at this time. Again he denied any thoughts of suicide and was able to identify the appropriate time to contact the crisis line if he needed to. Shared plan: -[facility] phone follow-up 06/29. Pt verbalized understanding and agreed with plan of care and follow up. RAL GAS TRADER Deborah Rodrigues LICSW - 06/22/2016 10:30 AM CST Horticulture Superintendent - Phone Call Contact with: Rustam Reason for call: Care Coordination Discussion/actions: Received a phone call back from Rustam, stating he wanted to check-in. Rustam had somewhat pressured speech and seemed anxious. I didn't sleep well last night, stating he got 2-3 hours of sleep. Rustam stated that he is feeling hypomanic right now, but not full blown manic. He said that he has been in contact with his Psychiatrist and is working on adjusting his medications. He recently stopped Gabapentin, as he was having suicidal thoughts when taking it. Rustam denied any thoughts of suicide now, but did say he thinks it helps to talk to talk to someone. Spent some time talking to Rustam about ways to reduce his anxiety, keep himself busy, and the positive supports that he has. Rustam said that he has a therapy appointment scheduled for Tuesday, which he believes will be beneficial. I agreed to contact him on Tuesday to check-in and see how things are going. Rustam agreed that he would try to get some sleep today and would call back if he needed further assistance. No other concerns at this time. Shared plan: -[facility] phone follow-up 06/29. Pt verbalized understanding and agreed with plan of care and follow up. RAL GAS TRADER Deborah Rodrigues LICSW - 06/22/2016 10:00 AM CST Contacted Rustam, per request from RN Horticulture Superintendent, Judy Pittman. Left a detailed [place]. [place] [phone] if he calls the clinic. RAL GAS TRADER documented in this encounter Plan of Treatment Not on filedocumented as of this encounter Visit Diagnoses Diagnosis Health prison, active care coordinati on - Primary documented in this encounter Care Teams Software Analyst Relationship Specialty Start Date End Date Gagandeep Hinojosa MD PCP - General 05/17/12 14[address] [facility] [place] [address] Vane Zarate Psychiatrist Psychiatry 03/22/12 documented as of this encounter
--- OUTSIDE RECORDS SUMMARY | 2022-02-12 12:08 | XMS_ITS | Encounter Summary ---
:1970 Author Organization [facility] Address [address] [place] [address] Care Team Providers Name Role Phone Gagandeep Hinojosa MD Primary Care Provider Reason for Visit Reason Onset Date Comments [facility] Phone Visit 06/28/2016 Encounter Details Date Type Department Care Team Description 06/28/2016 Care Coord Phone Judy Luke R N [facility] Phone Visit Medicine 1415 [facility] 1415 [facility] [place] [address] [place] [address] [phone] Social History Tobacco Use Types Packs/Day Years [...] encounter Progress Notes Judy Pittman RN - 06/28/2016 1:49 PM CST RN Charging Operator - Diabetes Follow-Up Current diabetes medication regimen: Tresiba 76 units in AM Novolin R 74 BID Metformin 500 mg BID (unable to tolerate full therapeutic dose secondary to GI side effects) CURRENT GLUCOSE PATTERNS: since 06/25/16 Fastin - 142 Before lunch: 75 - 124 Before dinner: 83 - 132, (had eaten prior to the reading 181) Before bed: 98 - 113 Hypoglycemia (previous two weeks): 61, 59, 66, all in the middle of the night Assessment/education: Rustam is calling to report he hasn't had any further episodes of hypoglycemia,since his most recent insulin adjustment last week. However, he is very tightly controlled and I am concerned his is still at an increased risk for hypoglycemia. Therefore, I advised Rustam to decrease his Regular insulin to 73 units BID. During our previous conversation, we discovered that Rustam had been mistakenly taking Tresiba instead of NPH, twice daily. Rustam reports he has since decreased his Tresiba to just once daily, as directed. Rustam reports his mental health is much better and continuing to improve every day. I can hear a significant improvement in Rustam's voice, he is more calm and less anxious throughout our conversation. He notes he was able to attend his therapy appt today and it went well. Teach back method used to verify understanding. Shared plan: Continue Tresiba 76 units in AM. Decrease Regular to 73 BID. SMBG before meals and HS, as directed. Follow up with Endocrinology on 07/19/16. Phone follow up as needed. Call if sx of hypoglycemia or glucose readings < 70 mg/dL. Rustam verbalized understanding and agreed with plan of care and follow up. OMER TRAINER documented in this encounter Plan of Treatment Not on filedocumented as of this encounter Visit Diagnoses Diagnosis [facility], active care coordinati on - Primary Uncontrolled type 2 diabetes mellitus wi th hyperglycemia, with long-term current use of insulin (HRC) documented in this encounter Care Teams Construction Field Engineer Relationship Specialty Start Date End Date Gagandeep Hinojosa MD PCP - General 05/17/12 2979 [facility] [place] [address] Vane Zarate Psychiatrsamantha Psychiatry 03/22/12 documented as of this encounter
--- OUTSIDE RECORDS SUMMARY | 2022-02-12 12:08 | XMS_ITS | Encounter Summary ---
:1970 Author Organization [employer] Address [address] [place] [address] Care Team Providers Name Role Phone Gagandeep Hinojosa MD Primary Care Provider Reason for Visit Reason Comments MEDICATION THERAPY MANAGEMENT Nicotine Dependence Encounter Details Date Type Department Care Team Description 03/05/2016 Office Visit [facility] Medication Maddy Crane, Tobacc o abuse Management PharmD (Primary Dx) [address] [address] [facility] [phone] [place], [place] [id number] (Wo rk) Social History Tobacco Use Types [...] as of this encounter Patient Instructions Patient InstructionsMaddy Crane, PharmD - 03/05/2016 1:27 PM CST Congratulations on deciding to quit smoking! Your [employer] Quit Date: March 06! Put your patch on tonight before you go to bed. Get all cigarettes out of the car, house, etc. Tell your friends and family about your plan. Their support will be helpful. Here???s our plan: Reducing Cravings: The average craving lasts 5 minutes - keep yourself occupied for that time! Play Fototwics, ChoiceMap games, going for walks, word searches, chew on carrots Our Medication Plan: Use Nicotine Patch 21 mg daily x 4 weeks. Wear it 16-24 hours a day depending on how it affects yoursleep. Use the Nicotine Gum 4 mg as needed for cravings, up to 1 piece every hour, no more than 24 pieces per day. Chew the gum slowly until you get a peppery taste or tingle. Then hold it inside your cheek until the taste fades. Chew it to get the peppery taste back, and park it again. Do this off and on for 20 to 30 minutes. Food and drink can decrease how well the nicotine is absorbed, so don???t eat or drink for at least 15 minutes before and during gum use. Follow up: Call me in 1-2 weeks to check in By helping you be more active in your healthcare and medication management, we hope to improve your quality of life! Any questions or concerns, please call [phone] or contact me via [employer]. Maddy Crane, [facility] Medication Management Pharmacist Changes Your Body Goes Through When You Quit Smoking Within 20 minutes after smoking your last cigarette ??? Blood pressure drops to normal ??? Pulse rate drops to normal rate ??? Body temperature of hands and feet increases to normal After 1 to 9 months ??? Coughing, sinus congestion, fatigue and shortness of breath decreases ??? Cilia re-grow in lungs, increasing ability to handle mucus, clean the lungs and reduce infection ??? Body???s overall energy level increases After 12 hours ??? Carbon monoxide level in blood drops to normal ??? Oxygen level in blood increases to normal After 1 year ??? Risk of coronary heart disease drops to half that of a person still smoking After 48 hours ??? Nerve endings in the mouth and nose start to re-grow ??? Ability to taste and smell improves After 2 to 5 years ??? Stroke risk decreases to that of a non-smoker After 72 hours ??? Bronchial tubes relax, making breathing easier ??? Lung capacity increases ??? Symptoms of withdrawal usually peak and will begin to decline after a few days After 5 years ??? Risk of mouth, esophagus and bladder cancer is cut in half After 2 to 12 weeks ??? Circulation improves ??? Walking becomes easier ??? Lung function increases After 10 years ??? Risk of dying from lung cancer is about half that of a person still smoking ??? Risk of cancer of the larynx (voice box) and pancreas decreases Preparing for Your Quit Date 1-2 Weeks before Quit Date Identify a Support System Tell friends and family about your desire to quit and share your quit date Make a list of why you want to quit and keep this with you for motivation Make Smoking Inconvenient Limit where smoking occurs - for example, avoid smoking in the house or car Limit when smoking occurs Only buy one pack of cigarettes at a time until quit date Decide before hand how many cigarettes will be smoked during the day Become more aware of each cigarette by putting it in an unfamiliar location or in a different pocket Make Smoking Unpleasant Buy a more distasteful brand Smoke only under circumstances that are not especially pleasurable If smoking usually occurs with others, then only smoke alone Encourage having a clean-mouth taste by brushing teeth frequently and using mouthwash Do Not Smoke Automatically Rate your cigarettes on a scale of 0-10 on how badly you want it. If you rate it at 5 or less, put it away until later. If you rate it greater than 5, go ahead and smoke it Put something in your mouth instead such as carrots, celery, licorice, or sunflower seeds Do something physical On the Day Before Quitting Throw away all remaining cigarettes, lighters, and ashtrays Clean clothes to get rid of cigarette smell Clean car and buy a new air freshener Make a dental appointment to have teeth cleaned On Your Quit Date Keep busy on the big day Change your routine to avoid triggers Try to avoid alcohol, coffee, or other beverages that are associated with cigarette smoking After Quitting Reward yourself for not smoking! Set aside money normally spent on smoking and do something nice for yourself Managing Trigger Situations to Prevent Tobacco Use Relapse Trigger Situation Coping Strategy Drinking coffee or alcohol Skip coffee break, limit or avoid alcohol Drink an alternative drink (juice, tea, etc.) Getting up in the morning Keep cigarettes far away from bed [place] teeth and rinse with mouthwash as soon as you get out of bed Friends and family who smoke Ask them not to smoke around you Avoid places where people are smoking Dealing with stress Use relaxation techniques to calm yourself Take a shower or bath Talk to someone Riding in your vehicle Make a contract with yourself not to smoke in your vehicle Chew gum, licorice, or put something else in your mouth After Meals [place] teeth or rinse with mouthwash Chew sugarless gum or suck on sugar-free candy or mints Other ways to cope with Cravings ??? Post a notecard with reasons for quitting around your house ??? Keep hands and mouth busy (lollipops, toothpicks, straws, rubber band, silly putty, stress ball) ??? Munch on carrots, celery sticks, pistachios, pretzel rods ??? Take a walk or exercise ??? Call or visit a friend ??? Play with children or pets ??? Take up a new hobby Overcoming Withdrawal Symptoms Withdrawal Symptom Recommendation Depressed mood (normal process for a short period) Increase pleasurable activities Get support from family/friends Discuss with provider Difficulty concentrating (body needs time to adjust to not having constant nicotine stimulation) Avoid stress Plan workload accordingly Dizziness (body is getting extra oxygen) Be cautious the first few days Fatigue (lack of stimulation of nicotine) Take naps Do not push yourself Nicotine replacement therapy may be helpful Hunger (cravings for a cigarette can be mistaken for hunger) Drink lots of water Eat low-calorie snacks Insomnia (nicotine affects brain wave function and sleep patterns) Limit caffeine Practice relaxation techniques Irritability (body???s craving for nicotine) Exercise Practice relaxation techniques Take a hot bath Headaches Take a warm shower or bath Try relaxation or meditation techniques Coughing Drink plenty of fluids Suck on cough drops or sugarless hard candy *Most withdrawal symptoms start on the first or second day after stopping tobacco. They are at the worst in the first week and get better with time. Most symptoms will disappear after 2-4 weeks. Tobacco Cessation Resources [employer]SCM-GL ?? 2 weeks of nicotine replacement gum, patches or lozenges ?? Sign up for text message or e-mail support ?? Phone support and counseling available if you don't have insurance ?? If there is a smoking cessation program with your insurance, they will help you get in contact with the program. Smokefree.gov ?? Text reminders ?? Call or instant message with a counselor ?? Patient education materials APPS for smart phones ?? SmokeFree ?? MyQuit Professor Of Religious Studies ([place]) ?? Stop Smoking - Mindfulness Meditation ?? Quit Pal (National Cancer [place]) ?? My QuitBuddy ?? My Last Cigarette STERED DIETICIAN documented in this encounter Progress Notes Maddy Crane, PharmD - 03/05/2016 1:17 PM CST Timur Krishnamurthy is a 46 y.o. male coming in for an initial visit for smoking cessation. He was referred to me from Judy Pittman, RNCC. His primary care provider is Gagandeep Hinojosa MD. Comments/concerns are: smoking cessation. Current medication list is in [facility] and was reviewed. Allergies Allergen Reactions ??? Aripiprazole permanent shaking in left arm ??? Haloperidol Shock ??? Nitroglycerin Nausea And Vomiting ??? Thiothixene Other, see comments Muscle spasm Social History Substance Use Topics ??? Smoking status: Current Every Day Smoker -- 0.00 packs/day for 25 years Types: Cigarettes ??? Smokeless tobacco: Former User Quit date: 10/25/2012 Comment: Smoking History Packs/day: ??? Alcohol Use: No Comment: Alcoholic Drinks/day: Amount:0; Freq:Never; Subjective: Tobacco Baxter Questions Patient Response Comments How much does pt smoke? 1-1.5 ppd Smokes more if has more time How long has pt been smoking? 30 years Started around 15-16 yo The most pt has ever smoked 1.5 ppd Is pt around friends/family members that smoke? no Has patient tried quitting in the past? yes If yes, how many times? 20-30 For how long? 8 months What worked/didn't work in the past? Quit cold turkey for 6 and 8 months. Relapsed due to manic episode. Previously tried the patch which helped. He is in the coverage gap for his Part D plan and is unable to pay for any expensive medications. He has nicotine 21mg patches and nicotine 4mg gum at home already. He has bipolar disorder andis hesitant to use Chantix. Triggers for smoking include: Boredom, cravings, after meals, driving to work, stress. Does not smoke in the house. Why does he want to quit (motivators for quitting)? Health - diabetes, stent. Grandkids, does not like smell, finances Patient rated importance of quitting smokin Patient's confidence in his/her ability to quit smokin-6 Patient-identified smoking cessation barriers: I have to, I don't want to Objective: No components found for: ELAINA Lab Results Component Value Date ALT 11/04/2015 ALT 11/04/2015 Lab Results Component Value Date AST 11/04/2015 AST 11/04/2015 There were no vitals taken for this visit. Assessment: Patient is ready to quit smoking. Discussed the results of EAGLES study which showed similar rates of side effects in patients with current mental health diagnoses among nicotine replacement, bupropion, Chantix, and placebo. Unfortunately, he is limited by cost and will need to use NRT. Plan to resolve medication related issues: Quit Date: March 06. Patient will inform family and friends. Treatment Recommendations: Continue Nicotine 21mg patch and nicotine 4mg gum Coping mechanisms: play guitar, phone games, go for a walk, word search, chew on carrots I offer these suggestions with the understanding that I do not completely understand the complexity of his medical conditions. Will follow up 1 week after quit date, patient would prefer to call me to check in. Time spent with patient is 30 minutes. Maddy Crane [facility] Medication Management Pharmacist [facility] Medication Management Med Mgmt Smartform completed: yes Follow-up Med Mgmt appointment scheduled: no Added to Care Team: yes MAP/CMS Letter required: No Completed: No STERED DIETICIAN documented in this encounter Plan of Treatment Not on filedocumented as of this encounter Visit Diagnoses Diagnosis Tobacco abuse (HRC) - Primary Tobacco use disorder documented in this encounter Care Teams Professor Criminal Justice Relationship Specialty Start Date End Date Gagandeep Hinojosa MD PCP - General 05/17/12 [address] [place] [id number] Vane Zarate Psychiatrist Psychiatry 03/22/12 documented as of this encounter
--- OUTSIDE RECORDS SUMMARY | 2022-02-12 12:08 | XMS_ITS | Encounter Summary ---
:1970 Author Organization [employer] Address [address], [place] [address] Care Team Providers Name Role Phone Gagandeep Hinojosa MD Primary Care Provider Reason for Visit Reason Onset Date Comments [facility] Phone Visit 07/02/2016 Encounter Details Date Type Department Care Team Description 07/02/2016 Care Coord Phone [facility] Deborah Rodrigues, [facility] Phone Visit [facility] 14[address] [facility] . [address] [place] [address] [place] [address] [phone] Social History Tobacco Use Types Packs/Day Years Used Date Smoking Tobacco: Every Day Cigarettes 0 25 Smokeless Tobacco: Former Qu it: 10/25/2012 Comments: Smoking History Packs/day: Alcohol Use Standard Drinks/Week Comments No 0 (1 standard drink = 0.6 oz pure Alcoho lic Drinks/day: Amount:0; alcohol) Freq:Never; Sex Assigned at Date Recorded Not on file documented as of this encounter Progress Notes Deborah Rodrigues, [facility] - 07/02/2016 2:30 PM CST Spouter - Phone Call Contact with: Rustam Reason for call: Care Coordination Discussion/actions: Received a phone call from Rustam wanting to check-in. He stated that His psychiatrist put him on Seroquel, so he has been sleeping through the night. Rustam stated that this has beenreally good, and he is starting to feel better. I do not have much to report, but I am feeling a lot better . Rustam stated that he is still concerned about finances, but he is confident things will work out . Rustam denied any other concerns at this time and agreed to call in approximately one weekto check-in. Shared plan: -[facility] phone follow-up one week. Pt verbalized understanding and agreed with plan of care and follow up. AR FUSER documented in this encounter Plan of Treatment Not on filedocumented as of this encounter Visit Diagnoses Diagnosis [facility] care, active care coordinati on - Primary documented in this encounter Care Teams Product Support Sales Representative Relationship Specialty Start Date End Date Gagandeep Hinojosa MD PCP - General 05/17/12 [address] [place] [address] Vane Zarate Psychiatrist Psychiatry 03/22/12 documented as of this encounter
--- OUTSIDE RECORDS SUMMARY | 2022-02-12 12:08 | XMS_ITS | Encounter Summary ---
:1970 Author Organization [email or web address] Address [address] [place] [address] Care Team Providers Name Role Phone Gagandeep Hinojosa MD Primary Care Provider Encounter Details Date Type Department Care Team Description 02/24/2016 Lab Visit [facility] Uncontrolled type 2 diabetes mellitus with diabetic polyneuropathy, with long- term current use of insulin (HRC); [address] Nonspecific abnormal results of liver function study [place] [id number] Social History Tobacco Use Types Packs/Day Years [...] Date/Time Associated Diagnosis Comme nts ALBUMIN/CREAT RATIO STAT 02/24/2016 11:10 Uncontrolled type 2 Results for this AM CDT diabetes mellitus procedure are in with diabetic the results polyneuropathy, with section . long-term current use of insulin (HRC) POCT GLYCOSYLATED STAT 02/24/2016 10:56 Result s for this HEMOGLOBIN (HB A1C) AM CDT procedur e are in the results section. EXTRA SERUM SEPARATOR STAT 02/24/2016 10:54 Re sults for this TUBE (YELLOW) AM CDT procedure are in the results section. documented in this encounter Results (ABNORMAL) Microalbumin Urine Random (UMAR) (02/24/2016 11:10 AM CDT) Patholo gist Method Time Signature Microalbumin 114.2 mg/L PN SOFT Urine U Creat Random 198 mg/dL PN SOFT Microalbumin/Crea 57.7 (H) 0.0 - PN SOFT tinine Ratio 30.0 Specimen Anatomical Collection Method Collection Time Receive d Time (Source) Location / / Volume Laterality Urine specimen 02/24/2016 11:10 201 6 2:50 (specimen) AM CDT PM CDT Narrative PN SOFT - 02/24/2016 4:26 PM CDT Performed at [facility] [address] [place] [address] CLIA number [id number] Gagandeep Hinojosa MD LAB_1 Performing Organization Address [facility] Phon e Number PN SOFT [address] [place] [address] [phone] (ABNORMAL) POCT Glycosylated Hemoglobin (HB A1C) (02/24/2016 10:56 AM CDT) [facility] Method Time Signature Glycosolated HGB 10.9 (H) 4.0 - 5.6 PN SOFT A1C (POC) % Comment: The Rapid A1c test is designed for monit oring patients with an established diagnosis of diabetes jasen litus. ??The rapid method is not suitable to establish the intial diagnosis of diabetes melitus. Specimen Anatomical Collection Method Collection Time Receive d Time (Source) Location / / Volume Laterality 02/24/2016 10:56 02/24/2016 AM CDT 10:56 AM CDT Narrative PN SOFT - 02/24/2016 11:30 AM CDT Performed at [facility] [place] [address] CLIA number [id number] Gagandeep Hinojosa MD LAB_1 Performing Organization Address [facility] Phon e Number PN SOFT [address] [place] [address] Extra Serum Separator Tube (yellow) (02/24/2016 10:54 AM CDT) athologist Signature Extra SST Top Drawn PN SOFT Drawn Specimen (Source) Anatomical Location Collection Method / Collectio n Time Received Time / Laterality Volume Narrative REINA KENDAL - 02/24/2016 10:54 AM CDT Performed at [facility] [address] [facility] [address] CLIA number [id number] Gagandeep Hinojosa MD LAB_1 Performing Organization Address City/State/ZIP Code Phon e Number PN KENDAL [address] [place] [address] documented in this encounter Visit Diagnoses Diagnosis Uncontrolled type 2 diabetes mellitus wi th diabetic polyneuropathy, with long-term current use of insulin Nonspecific abnormal results of liver fu nction study documented in this encounter Care Teams Drill Instructor Relationship Specialty Start Date End Date Gagandeep Hinojosa MD PCP - General 05/17/[address] [place] [address] [place] [address] Vane Zarate Psychiatrsamantha Psychiatry 03/22/12 documented as of this encounter
--- OUTSIDE RECORDS SUMMARY | 2022-02-12 12:08 | XMS_ITS | Encounter Summary ---
:1970 Author Organization [email or web address] Address [address], [place] [address] Care Team Providers Name Role Phone Gagandeep Hinojosa MD Primary Care Provider Encounter Details Date Type Department Care Team Description 03/10/2016 Notes/Orders [facility] Gagandeep Hinojosa MD [address] [facility] . [address] [facility] [place] [address] [place] [address] [phone] (Wo rk) Social History Tobacco Use Types [...] filedocumented in this encounter Care Teams Food Service Representative Relationship Specialty Start Date End Date Gagandeep Hinojosa MD PCP - General 05/17/12 [facility] [place] [address] Vane Zarate Psychiatrist Psychiatry 03/22/12 documented as of this encounter
--- OUTSIDE RECORDS SUMMARY | 2022-02-12 12:08 | XMS_ITS | Encounter Summary ---
:1970 Author Organization [employer] Address [address] [place] [address] Care Team Providers Name Role Phone Gagandeep Hinojosa MD Primary Care Provider Reason for Visit Reason Onset Date Comments [facility] Phone Visit 02/24/2016 Encounter Details Date Type Department Care Team Description 02/24/2016 Care Coord Phone Judy Luke R N [facility] Phone Visit Medicine [address] [facility] [address] [facility] [place] [address] [place] [address] [phone] Social History Tobacco Use Types Packs/Day Years [...] encounter Progress Notes Judy Pittman RN - 02/26/2016 1:59 PM CDT V Belt Curer - Phone Call Contact with: Rustam Reason for call: Care Coordination Discussion/actions: I informed Rustam that I was able to obtain 15 samples of Tresiba U200, which should last until the end of 2015. However, he will still need to purchase [employer] Relion R to cover hismeals, which will cost about $100 per month. Rustam is grateful and thinks he can manage the $100 forthe next 2 months. I stressed the importance of making sure there is at least 8 hrs between doses and advised he decrease his dose by 4 units (76 units BID) to see how he responds to the change in insulin and prevent hypoglycemia. Since it takes 3-4 days for Tresiba to reach a steady state, Rustam may increase his dose by 2 units every 3-4 days up to his current dose of 80 units BID. I reminded Rustam to be extra careful with SMBG and carry CHO at all times. Historically, Rustam reaches the Medicare Coverage Gap every year around February. I reviewed how we have exhausted other resources for assistance. [employer] recommended budgeting for this time of year by setting aside $40 per month, so the funds will be available when he needs them. Rustam had previously agreed to this plan, but admits he neglected to set aside the money. I explained to Rustam that I may not be able to help next year (in the future) and Dr Hinojosa and myself do not want him to ever run out of insulin. Rather, we want Rustam to do his best to plan ahead and prevent this problem next year and beyond. Therefore, I strongly recommended Rustam talk to his about the plan so they can work together. I offered to talk to his , but Rustam states she is shy around director of medical staff services and wouldn't feel comfortable talking to me. I also discussed smoking cessation. Rustam has expressed interest in quitting smoking over the years,but has been unsuccessful. He agrees that not only would quitting smoking be better for his health, it would also free up a significant amount of money to help with his insulin/medication costs going forward. I suggested Rustam meet with ALICIA Glez for assistance with smoking cessation and help him achieve this goal. Rustam agreed. Shared plan: Samples of Tresiba U200 received and entered into [employer]. Insulin is stored in the Injection Room refrigerator and ready for pick-up. Dosing instructions printed and included with the insulin. SMBG qid as directed, carry CHO at all times. Scheduled appt with ALICIA Glez for smoking cessation on 03/05/16. Set aside $40 per month to cover the cost of insulin once the Coverage Gap is reached. Contact information provided and advised to call with questions or BG readings <70 mg/dL. Rustam verbalized understanding and agreed with plan of care and follow up. Judy Pittman RN - 02/24/2016 2:42 PM CDT V Belt Curer - Phone Call Contact with: Rustam Reason for call: Care Coordination Discussion/actions: Rustam is calling to report he has reached the Medicare Coverage Gap again this year and cannot afford his insulin. He has approximately a 10 day supply left. Because of his financial situation, Rustam admits he has been rationing his insulin. As a result, his A1c has increased to 10.9%. Rustam insists that his BG is at goal when he takes his insulin as prescribed. I reminded Rustam about the dangers of rationing his insulin and strongly encouraged him to call me before he reaches the Coverage Gap going forward. I reviewed the fact that Rustam has exhausted many of the resources for medication assistance over the past 4 years. Previously, the [employer] has helped Rustam, but they no longer have the funds available for assistance. Also as a preventative measure, the [employer] strongly recommended Rustam budget his finances to set aside approximately $40 per month to cover February and March, the months where he typically reaches the Coverage Gap. We have also looked into applying for Pharmaceutical Assistance, but Rustam and his spouse are significantly over income. Therefore, the only other possible resource is sample insulin. Since [facility] does not have samples, the only option is to change his regimen. I recommended trying to obtain a basal insulin and continue using the Relion Regular BID. Rustam agrees to try to come up with the $100 for the Relion Regular insulin. Shared plan: Left message for Enmanuel Wicked [employer] Rep to request samples of Tresiba. Rustam verbalized understanding and agreed with plan of care and follow up. documented in this encounter Plan of Treatment Not on filedocumented as of this encounter Visit Diagnoses Diagnosis Uncontrolled type 2 diabetes mellitus wi th other specified complication, with long-term current use of insulin - Prima ry Inadequate community resources Tobacco abuse (HRC) Tobacco use disorder documented in this encounter Care Teams Plasma Center Technician Relationship Specialty Start Date End Date Gagandeep Hinojosa MD PCP - General 05/17/[address] [place] [address] Vane Zarate Psychiatrist Psychiatry 03/22/12 documented as of this encounter
--- OUTSIDE RECORDS SUMMARY | 2022-02-12 12:08 | XMS_ITS | Encounter Summary ---
:1970 Author [facility] Address [address] [place] [address] Care Team Providers Name Role Phone Gagandeep Hinojosa MD Primary Care Provider Reason for Visit Reason Onset Date Comments [facility] Phone Visit 06/24/2016 Encounter Details Date Type Department Care Team Description 06/24/2016 Care Coord Phone Judy Luke R N [facility] Phone Visit Medicine 1415 [facility] 14[address] [facility] [place] [address] [place] [address] [phone] Social History Tobacco Use Types Packs/Day Years [...] encounter Progress Notes Judy Pittman RN - 06/24/2016 1:13 PM CST RN Rail Splitter - Diabetes Follow-Up Current diabetes medication regimen: Tresiba 78 units in AM Novolin R 76 units in AM and 74 units in PM Metformin 500 mg BID (unable to tolerate full therapeutic dose secondary to GI side effects) CURRENT GLUCOSE PATTERNS: since 06/21/16 Fastin - 115 Before lunch: 89 - 216 Before dinner: 98 - 179 Before bed: 66 - 121 Hypoglycemia (previous two weeks): 61, 59, 66, all in the middle of the night Assessment/education: Rustam is calling to report he had another episode of hypoglycemia during the night, despite a recent insulin adjustment. However, Rustam notes his mental health is much better today. I can hear a significant improvement in Rustam's voice, he is more calm and less anxious throughoutour conversation. As a result, we were able to more thoroughly review his BG readings and discuss his insulin dosing. During our review, Rustam admitted he had not been using the Tresiba insulin samples that I provided for him last year, rather he just began using them recently. We discovered that Rustam has been mistakenly taking Tresiba instead of NPH, twice daily. Luckily, Tresiba can be taken as early as 8 hours following the previous dose without stacking, however Rustam is taking double the dose of background insulin. Therefore, I instructed Rustam to take the Tresiba just once daily and adjusted his insulin dosing further. Rustam has decided to discontinue smoking as part of his effort to take his health more seriously. He has set a quit date of 07/07/16. Rustam notes that he will be saving $300-400 per month on cigarettes alone, which would be much better spent on insulin. I congratulated Rustam on this healthy decision and provided encouragement. I also noted that ALICIA Glez is an excellent resource for smoking cessation, if he would like additional assistance. Teach back method used to verify understanding. Shared plan: Tresiba 76 units in AM. Regular 74 BID. SMBG before meals and HS, as directed. Phone follow up next week to review BG readings. Call if sx of hypoglycemia or glucose readings < 70 mg/dL. Rustam verbalized understanding and agreed with plan of care and follow up. ANALYST documented in this encounter Plan of Treatment Not on filedocumented as of this encounter Visit Diagnoses Diagnosis Health group home, active care coordinati on - Primary Type 2 diabetes mellitus with hyperglyce meg, with long-term current use of insulin (HRC) Tobacco abuse (HRC) Tobacco use disorder Bipolar I disorder (HRC) Bipolar I disorder, most recent episode (or current) unspecified documented in this encounter Care Teams Carton Forming Machine Tender Relationship Specialty Start Date End Date Gagandeep Hinojosa MD PCP - General 05/17/12 14[address] [facility] [place] [address] Vane Zarate Psychiatrist Psychiatry 03/22/12 documented as of this encounter
--- OUTSIDE RECORDS SUMMARY | 2022-02-12 12:08 | XMS_ITS | Encounter Summary ---
:1970 Author Organization [employer] Address [address] [address] Care Team Providers Name Role Phone Gagandeep Hinojosa MD Primary Care Provider Reason for Visit Reason Onset Date Comments Medication Request 06/09/2016 Encounter Details Date Type Department Care Team Description 06/09/2016 [facility] Gagandeep Hinojosa MD Medication Request 1415 [facility] . [address] [place] [address] [place] [address] [phone] (Wo rk) Social History Tobacco Use Types [...] encounter Nursing Notes Marci Oliveira RN - 06/09/2016 11:15 AM CST Reason for Call: Medication Request. Next Steps: Review pended order for accuracy. Sign. Route to appropriate person/pool. Caller IS expecting a call back from Care Team. Additional Information: Pt seen today Laura Martins - 06/09/2016 11:06 AM CST Further assistance needed to complete refill request Reason: Prescription not on patients' active med list. Please verify. Next Steps: Triage to complete refill as appropriate. REQUEST PRESCRIPTIONS: ?? One Touch Ultra II Meter ?? One Touch Ultra Touch Test Strips ?? One Touch Delica Lancets IGN STUDENT ADVISER TEACHER Piper Mederos - 06/09/2016 10:58 AM CST Pt calling back with diabetes supply information. -One Touch Ultra II Meter -One Touch Ultra Touch Test Strips -One Touch Delica Lancets IGN STUDENT ADVISER TEACHER documented in this encounter Plan of Treatment Not on filedocumented as of this encounter Visit Diagnoses Diagnosis Uncontrolled type 2 diabetes mellitus wi th diabetic polyneuropathy, with long-term current use of insulin - Primary documented in this encounter Care Teams Interactive Media Marketing Specialist Relationship Specialty Start Date End Date Gagandeep Hinojosa MD PCP - General [facility]/17[facility]12 [facility] [address] Vane Zarate Psychiatrsamantha Psychiatry 03/22/12 documented as of this encounter
--- OUTSIDE RECORDS SUMMARY | 2022-02-12 12:08 | XMS_ITS | Encounter Summary ---
:1970 Author Organization [email or web address] Address [address] [place] [address] Care Team Providers Name Role Phone Gagandeep Hinojosa MD Primary Care Provider Reason for Visit Reason Comments Follow Up ER [facility] 07-08-16 Hypoglycemia Encounter Details Date Type Department Care Team Description 07/09/2016 Office Visit Gagandeep Storm [facility] emia (Primary Dx); Romario Rubio MD Bipolar I disorder ([facility]); [address] [facility] Uncontrolled type 2 diabetes mellitus without complication, with long-term current use of insulin ([facility]) [place] [address] [phone] [place] [address] Social History Tobacco Use Types Packs/Day [...] Sign Reading Time Taken Comments Blood Pressure 133/67 07/09/2016 9:32 AM CDT Pulse 102 07/09/2016 9:32 AM CDT Temperature - - Respiratory Rate - - Oxygen Saturation - - Inhaled Oxygen Concentration - - Weight 103.4 kg (228 lb) 07/09/2016 9:32 AM CDT Height - - Body Mass Index 32.71 02/14/2014 12:57 PM CDT documented in this encounter Progress Notes Gagandeep Hinojosa MD - 07/09/2016 10:00 AM CDT ICD-10-CM 1. Hypoglycemia ([facility]) E16.2 2. Bipolar I disorder ([facility]) F31.9 3. Uncontrolled type 2 diabetes mellitus without complication, with long-term current use of insulin([facility]) E11.65 Z79.4 CHIEF COMPLAINT: Chief Complaint Patient presents with ??? Follow Up ER [facility] 07-08-16 Hypoglycemia SUBJECTIVE : Timur Krishnamurthy is an 46 y.o. male who presents for recheck. Presented to the emergency room viaambulance for hypoglycemic symptoms of diaphoresis, palpitations, flushing after injecting his insulin. He has recently been started on Triseba may be developing some hypoglycemic response to this. He was treated at home with juice, and by the time he presented to the emergency room, he was essentially asymptomatic with blood sugar above 100. At home, reportedly his blood sugar was 46. His bipolar disorder is worsening, with a period of hypomanic behavior and thought process existing.He is no longer driving, is essentially confined to his home. He is not working, but doing householdtasks. PROBLEM LIST: Patient Active Problem List Diagnosis Date Noted ??? Tobacco abuse ([facility]) 02/24/2016 ??? Tinea versicolor 07/18/2015 ??? Diabetic eye exam ([facility]) 12/12/2013 Overview Note: Eye exam done at [facility] on 12/12/13. Mild diabetic retinopathy in right eye. ??? Tobacco use disorder ([facility]) 10/26/2012 ??? ACS (acute coronary syndrome) ([facility]) 10/25/2012 ??? Anemia 05/02/2012 ??? Health nursing home, active care coordination 03/22/2012 Overview Note: Talent Acquisition Assistant: JOSETTE Yip [phone] Care coordination focus: T2DM, financial resources Living situation: lives with spouse Important notes: SSDI, significant insulin resistance, uses Relion insulin, commonly reaches Medicare Coverage Gap See care plan under Chart Review > Misc Reports > [facility]B [facility] CARE PLAN REPORT ??? Microalbuminuria 02/04/2012 ??? LA, old ([facility]) 09/16/2011 ??? History of PTCA 09/16/2011 ??? Obesity, Class I, BMI 30-34.9 ([facility]) 09/16/2011 Overview Note: Body mass index is 31.16 kg/(m^2). ??? Hyperlipidemia with target LDL less than 70 ([facility]) 06/08/2011 ??? ASHD (arteriosclerotic heart disease) ([facility]) 05/04/2011 ??? Erectile dysfunction 01/22/2011 Overview Note: side effect Risperdal ??? Type 2 diabetes mellitus, uncontrolled ([facility]) 12/11/2010 ??? Dermatophytosis of body 09/04/2010 Class: Historical ??? Coronary atherosclerosis ([facility]) 12/22/2009 Overview Note: LW Modifier: mod RCA, negative nuclear stress test ??? Nonspecific abnormal results of liver function study 12/22/2009 ??? Bipolar I disorder ([facility]) 09/15/2005 Overview Note: LW Onset: [id number] FAMILY HISTORY OR SICK CONTACTS : No family history on file. SOCIAL HISTORY : Social History Substance Use Topics ??? Smoking status: Current Every Day Smoker -- 0.00 packs/day for 25 years Types: Cigarettes ??? Smokeless tobacco: Former User Quit date: 10/25/2012 Comment: Smoking History Packs/day: ??? Alcohol Use: No Comment: Alcoholic Drinks/day: Amount:0; Freq:Never; MEDICATIONS : Outpatient Prescriptions Prior to Visit Medication Sig [...] Degludec (TRESIBA FLEXTOUCH) 200 UNIT/ML SOPN Inject 75-80 Units subcutaneously two times a day. Make certain there is at least 8 hrs between injections. 07/09/2016: 74 units 45 mL 0 ??? insulin isophane (NOVOLIN NPH,HUMULIN NPH) 100 UNIT/ML injection Inject 80 Units subcutaneously two times a day before meals. (Patient not taking: Reported on 07/09/2016) 40 mL 2 ??? insulin pen needle (INSULIN PEN NEEDLES) 31G X 8 MM SHORT use witheach dose 200 each prn ??? insulin regular (NOVOLIN R) 100 UNIT/ML injection Inject 76 Units subcutaneously two times a daybefore meals. 07/09/2016: 72 units BID 40 mL 2 ??? Insulin Syringe-Needle U-100 (INSULIN SYRINGE 31G X 5) 31G X 516 1 ML Inject 1 Each subcutaneously 4 times a day. 500 Each 3 ??? ketoconazole (NIZORAL) 2 % cream Apply topically daily (every 24 hours). 07/09/2016: prn 45 g 2 ??? lisinopril (ZESTRIL) 10 MG tablet Take 1 Tab by mouth daily. 90 Tab 3 ??? metFORMIN (GLUCOPHAGE) 500 MG tablet Take 1 Tab by mouth two times a day with meals for 90 days.180 Tab 0 ??? metoPROLOL succinate (TOPROL XL) 50 MG 24 hour release tablet Take 1 Tab by mouth daily. 90 Tab 3 ??? ONE TOUCH ULTRA 2 meter Use to test 4 times a day. 1 Each 0 ? ? ONE TOUCH ULTRA BLUE test strips Use to test as needed for Blood Sugar >. 100 Strip PRN ??? ONETOUCH DELICA lancets Use to test 4 times a day. 400 Each 3 ??? ONETOUCH ULTRA CONTROL solution Use to test as needed. 1 Each 11 ??? risperiDONE (RISPERDAL) 4 MG tablet Take 4 mg by mouth daily (every 24 hours). 07/09/2016: 6 mg QD ??? omega-3 fatty acids (FISH OIL) 1000 MG capsule Take 2 capsules by mouth 2 times daily. Indications: HYPERTRIGLYCERIDEMIA 360 capsule 3 No facility-administered medications prior to visit. ALLERGIES: Allergies Allergen Reactions ??? Aripiprazole permanent shaking in left arm ??? Haloperidol Shock ??? Nitroglycerin Nausea And Vomiting ??? Thiothixene Other, see comments Muscle spasm OBJECTIVE : Gen.: Alert, cooperative in no acute distress. He is exhibiting some excessive psychomotor behavior such as rocking, clenching on clenching his hands, and shaking his head as if to focus. No tremulousness Vital Signs: BP 133/67 mmHg Pulse 102 Wt 228 lb (103.42 kg) Eyes: PERRLA, full EOM. Throat: Moist oral mucosa, negative posterior pharynx Neck: Supple, without masses, lymphadenopathy or tenderness. Respiratory: Normal respiratory effort. Heart: RRR Abdomen: The abdomen was obese, soft and nondistended, normal sounds present. No obvious masses or organomegaly. LABS : ASSESSMENT /PLAN ICD-10-CM 1. Hypoglycemia (HRC) E16.2 2. Bipolar I disorder (HRC) F31.9 3. Uncontrolled type 2 diabetes mellitus without complication, with long-term current use of insulin(HRC) E11.65 Z79.4 He has a follow-up visit with endocrinology in about a week. He will be diligent about using his Tr at the lowest possible dose, and continue to check his blood sugars frequently Follow-up with endocrinology documented in this encounter Plan of Treatment Not on filedocumented as of this encounter Visit Diagnoses Diagnosis Hypoglycemia (HRC) - Primary Hypoglycemia, unspecified Bipolar I disorder (HRC) Bipolar I disorder, most recent episode (or current) unspecified Uncontrolled type 2 diabetes mellitus wi thout complication, with long-term current use of insulin documented in this encounter Care Teams Powerhouse Engineer Relationship Specialty Start Date End Date Gagandeep Hinojosa MD PCP - General 05/17/[address] [place], [place] [address] [address] Vane Zarate Psychiatrist Psychiatry 03/22/12 documented as of this encounter
--- OUTSIDE RECORDS SUMMARY | 2022-02-12 12:08 | XMS_ITS | Encounter Summary ---
:1970 Author Organization [employer] Address [address] [place] [address] Care Team Providers Name Role Phone Gagandeep Hinojosa MD Primary Care Provider Reason for Visit Reason Comments Diabetes Encounter Details Date Type Department Care Team Description 06/09/2016 Office Visit [place] Gagandeep Russell Uncontro lled type 2 diabetes mellitus without complication, with long-term current use of insulin (HRC) (Primary Dx); Romario Rubio MD Atherosclerosis of coronary artery, dequan na presence unspecified, unspecified vessel or lesion type, unspecified whether chickahominy indians-eastern division or transplanted heart (HRC); [address] [place] [address] Tobacco abuse; [address] Essential hypertension; [place] [address] [place] ASHD (arteriosclerotic heart disease); [phone] Hyperlipidemia LDL goal < 70; [phone] Flatulence; (Work) Uncontrolled type 2 diabetes mellitus wi th diabetic polyneuropathy, with long- term current use of insulin (HRC) [E11.42, Z79.4, E11.65]; [phone] Uncontrolled ty pe 2 diabetes mellitus with other ophthalmic complication, with long-term current use of insulin (HRC) [E11.39, Z79.4, E11.65]; (Fax) snf curre nt use of insulin (HRC); Type 2 diabetes mellitus with diabetic polyneuropathy, with long-term current use of insulin (HRC) [E11.42, Z79.4]; Hyperlipidemia, unspecified hyperlipidemia type (HRC) [E78.5]; Tobacco use dis order Social History Tobacco [...] Sign Reading Time Taken Comments Blood Pressure 154/84 06/09/2016 9:53 AM CLIENT RELATIONSHIP EXECUTIVE Pulse 106 06/09/2016 9:53 AM CLIENT RELATIONSHIP EXECUTIVE Temperature - - Respiratory Rate - - Oxygen Saturation - - Inhaled Oxygen Concentration - - Weight 102.5 kg (226 lb) 06/09/2016 9:45 AM CLIENT RELATIONSHIP EXECUTIVE Height - - Body Mass Index 32.43 02/14/2014 12:57 PM CDT documented in this encounter Progress Notes Gagandeep Hinojosa MD - 06/09/2016 4:03 PM CST SUBJECTIVE: 46 y.o. male presents today for diabetes check. Just received funding to allow for purchase of insulin. So far has only been using NPH. No monitoring. Aspirin:Continues to take aspirin daily. No stomach [...] Patient Patient did not bring in outside records .. Cholesterol: Lipids have been at goal. No muscle aches or pains. Tobacco: Patient reports that he has been smoking Cigarettes. He has been smoking about 0.00 packs per day for the past 25 years. He quit smokeless tobacco use about 3 years ago. Eye exam: Patient is not up-to-date with eye exam. Patient does have a history of retinopathy. He notes a history of retinal hemorrhage, which has resolved. Report is unavailable. Will obtain No blurryor double vision Foot exam: Patient does have a history of neuropathy and numbness Kidney health: does not have a history of nephropathy. No burning or pain with urination, no polyuria or polydipsia. Review of systems: See Above Medications: Reviewed and updated Outpatient Prescriptions Prior to Visit Medication Sig Dispense Refill ??? aspirin 81 MG chewable tablet TAKE 1 TABLET BY MOUTH DAILY . 100 tablet 1 ??? Insulin Degludec (TRESIBA FLEXTOUCH) 200 UNIT/ML SOPN Inject 75-80 Units subcutaneously two times a day. Make certain there is at least 8 hrs between injections. 45 mL 0 ??? insulin isophane (NOVOLIN NPH,HUMULIN NPH) 100 UNIT/ML injection Inject 80 Units subcutaneously two times a day before meals. 40 mL 2 ??? insulin pen needle (INSULIN PEN NEEDLES) 31G X 8 MM SHORT use witheach dose 200 each prn ??? insulin regular (NOVOLIN R) 100 UNIT/ML injection Inject 76 Units subcutaneously two times a daybefore meals. 40 mL 2 ??? ketoconazole (NIZORAL) 2 % cream Apply topically daily (every 24 hours). 45 g 2 ??? omega-3 fatty acids (FISH OIL) 1000 MG capsule Take 2 capsules by mouth 2 times daily. Indications: HYPERTRIGLYCERIDEMIA 360 capsule 3 ??? risperiDONE (RISPERDAL) 4 MG tablet Take 4 mg by mouth daily (every 24 hours). ??? atorvastatin (LIPITOR) 80 MG tablet Take 1 tablet by mouth daily (every 24 hours). 90 tablet 3 ??? divalproex (DEPAKOTE) 500 MG enteric coated tablet Take 4 Tabs by mouth daily. 56 Tab 0 ??? Insulin Syringe-Needle U-100 (INSULIN SYRINGE 31G X 5/16) 31G X 5/16 1 ML Inject 1 each subcutaneously 4 times daily. 500 each 3 ??? lisinopril (ZESTRIL) 5 MG tablet TAKE 1 TABLET BY MOUTH EVERY DAY 90 tablet 2 ??? meclizine (ANTIVERT) 12.5 MG tablet Take 25 mg by mouth. ??? metFORMIN (GLUCOPHAGE) 500 MG tablet Take 1 tablet by mouth 2 times daily (with meals) for 90 days. Indications: TYPE 2 DIABETES MELLITUS 180 tablet 0 ??? metoPROLOL succinate (TOPROL XL) 50 MG 24 hour release tablet Take 1 tablet by mouth daily (every 24 hours). 90 tablet 3 ??? nicotine (NICODERMCQ) 21 MG/24HR patch Apply 1 Patch to skin every 24 hours. . 14 Each 1 ??? nicotine (NICORETTE) 4 MG gum Take 4 mg by mouth every 1 hour as needed for Smoking Cessation. Chew 1 piece of gum every 1 to 2 hours (minimum of 9 pieces per day) for 6 weeks. Then 1 piece every 2to 4 hours for 3 weeks, then 1 piece every 4 to 8 hours for 3 weeks, then stop. ??? Tadalafil (CIALIS) 20 MG tablet Take 1 tablet by mouth as needed for Erectile Dysfunction. Take 30 minutes prior to sexual activity 10 tablet 0 No facility-administered medications prior to visit. Adverse Drug Reactions: Allergies Allergen Reactions ??? Aripiprazole permanent shaking in left arm ??? Haloperidol Shock ??? Nitroglycerin Nausea And Vomiting ??? Thiothixene Other, see comments Muscle spasm OBJECTIVE: Vital Signs: BP 154/84 mmHg Pulse 106 Wt 226 lb (102.513 kg) General: Alert, Oriented, NAD Head: Normocephalic. [...] edema and Monofilament exam of the feet shows hypoesthesia of both feet involving the digits. No ulcerations, no skin breakdown, no preulcerative callus Lab Results Component Value Date HGBA1C 10.9* [...] A1C, POC Date Value Ref Range Status 07/06/2011 10.6* 6.0 % Final Lab Results Component Value Date/Time HGB A1C 10.9* 03/27/2015 1434 HEMOGLOBIN A1CRM 10.0* 11/25/2010 1618 HEMOGLOBIN A1C RAPID 9.3* 12/09/2014 1357 HEMOGLOBIN A1C, POC 10.6* 07/06/2011 1650 No components found for: GLUF Lab Results Component Value Date K 5.0 07/18/2015 CHLORIDE 99 07/18/2015 ASSESSMENT: 1. Type 2 diabetes, uncontrolled 2. Hypertension, uncontrolled 3. Hyperlipidemia, controlled ICD-10-CM 1. Uncontrolled type 2 diabetes mellitus without complication, with long-term current use of insulin([facility]) E11.65 divalproex (DEPAKOTE) 500 MG enteric coated tablet Z79.4 Insulin Syringe-Needle U-100 (INSULIN SYRINGE 31G X 5/16) 31G X 5/16 1 ML metFORMIN (GLUCOPHAGE) 500 MG tablet 2. Atherosclerosis of coronary artery, angina presence unspecified, unspecified vessel or lesion type, unspecified whether chick[place]om[place] indians-eastern division or transplanted heart ([facility]) I25.10 lisinopril (ZESTRIL) 10 MG tablet 3. Tobacco abuse ([facility]) Z72.0 4. Essential hypertension ([facility]) I10 lisinopril (ZESTRIL) 10 MG tablet Electrolyte Panel Creatinine / GFR 5. ASHD (arteriosclerotic heart disease) ([facility]) I25.10 atorvastatin (LIPITOR) 80 MG tablet metoPROLOL succinate (TOPROL XL) 50 MG 24 hour release tablet 6. Hyperlipidemia LDL goal < 70 E78.5 atorvastatin (LIPITOR) 80 MG tablet Lipid Panel and Direct LDL(If Needed) 7. Flatulence R14.3 Charcoal 260 MG 8. Uncontrolled type 2 diabetes mellitus with diabetic polyneuropathy, with long-term current use ofinsulin (HR) [E11.42, Z79.4, E11.65] E11.42 POCT Glycosylated Hemoglobin (HB A1C) Z79.4 Microalb/Creat Ratio E11.65 9. Uncontrolled type 2 diabetes mellitus with other ophthalmic complication, with long-term current use of insulin (HRC) [E11.39, Z79.4, E11.65] E11.39 Z79.4 E11.65 10. buttermaker current use of insulin (HRC) Z79.4 11. Type 2 diabetes mellitus with diabetic polyneuropathy, with long-term current use of insulin (HRC) [E11.42, Z79.4] E11.42 Z79.4 12. Hyperlipidemia, unspecified hyperlipidemia type (HRC) [E78.5] E78.5 13. Tobacco use disorder (HRC) F17.200 aggressively encouraged to stop smoking PLAN: 1. He will again need with career services director to discuss his insulin dosing. He may need to be referred to endocrine. He seems to have very little insight into the severity of his disease. The patient was discharged ambulatory and in stable condition. Diabetes measures: A1c Due: 3 months Foot Exam: 3 months Eye exam: Will obtain outside report. May need to be rechecked this year Cholesterol: 6 months Electrolytes: 3 months UMAR: 3 months Aspirin: yes Tobacco: yes NT RELATIONSHIP EXECUTIVE documented in this encounter Plan of Treatment Not on filedocumented as of this encounter Results (ABNORMAL) Microalb/Creat Ratio (09/07/2016 10:26 AM CDT) [facility] gist Method Time Signature Microalbumin 102.5 mg/L PN SOFT Urine U Creat Random 263 mg/dL PN SOFT Microalbumin/Crea 39.0 (H) 0.0 - PN SOFT tinine Ratio 30.0 Specimen Anatomical Collection Method Collection Time Receive d Time (Source) Location / / Volume Laterality Urine specimen 09/07/2016 10:26 7 2:29 (specimen) AM CDT PM CDT Narrative PN SOFT - 09/07/2016 3:26 PM CDT Performed at [facility] ([facility] [address] [place] [address] CLIA number [id number] Gagandeep Hinojosa MD LAB_1 Performing Organization Address City/State/ZIP Code Phon e Number PN SOFT [address] [place] [address] [phone] (ABNORMAL) Creatinine / GFR (09/07/2016 10:25 AM [...] (Source) Location / / Volume Laterality 09/07/2016 10:09/07/2016 2:29 AM CDT PM CDT Narrative PN SOFT - 09/07/2016 3:04 PM CDT Performed at [facility] ([facility]), [address] [place] [address] CLIA number [id number] Gagandeep Hinojosa MD LAB_1 Performing Organization Address City/[facility]/ZIP Code Phon e Number PN SOFT [address] [place] [address] (ABNORMAL) Electrolyte Panel (09/07/2016 10:25 AM CDT) [...] - 09/07/2016 3:04 PM CDT Performed at [facility] ([facility]), [facility] [address] [place] [address] CLIA number [id number] Gagandeep Hinojosa MD LAB_1 Performing Organization Address [facility]/ZIP Code Phon e Number PN SOFT [address] [place] [address] (ABNORMAL) Lipid Panel and Direct LDL(If Needed) (09/07/2016 10:25 AM CDT) [facility] Time Signature Cholesterol 128 0 [...] - 09/07/2016 3:04 PM CDT Performed at [facility] ([facility] [address] [place] [address] CLIA number [id number] Gagandeep Hinojosa MD LAB_1 Performing Organization Address [facility] Phon e Number PN SOFT [address] [place] [address] (ABNORMAL) POCT Glycosylated Hemoglobin (HB A1C) (09/07/2016 10:25 AM CDT) [facility] [employer] Method Time Signature Glycosolated HGB 8.3 (H) [...] - 09/07/2016 10:35 AM CDT Performed at [facility] ([facility]), [facility] [place] [address] CLIA number [id number] Gagandeep Hinojosa MD LAB_1 Performing Organization Address [facility] Phon e Number PN SOFT [address] [place] [address] documented in this encounter Visit Diagnoses Diagnosis Uncontrolled type 2 diabetes mellitus wi thout complication, with long-term current use of insulin - Primary Atherosclerosis of coronary artery, dequan na presence unspecified, unspecified vessel or lesion type, unspecified whether [place] or transplanted heart (HRC) Tobacco abuse (HRC) Tobacco use disorder Essential hypertension (HRC) Unspecified essential hypertension ASHD (arteriosclerotic heart disease) ([facility]) Coronary atherosclerosis of unspecified type of vessel, chick[place]om[place] indians-e[place] division or graft Hyperlipidemia, unspecified hyperlipidem ia type (HRC) [E78.5] Flatulence Flatulence, eructation, and gas pain Uncontrolled type 2 diabetes mellitus wi th diabetic polyneuropathy, with long-term current use of insulin (HRC) [E11.42, Z7 9.4, E11.65] Uncontrolled type 2 diabetes mellitus wi th other ophthalmic complication, with long-term current use of insulin (HRC) [ E11.39, Z79.4, E11.65] snf current use of insulin (HRC) Encounter for long-term (current) use of insulin Type 2 diabetes mellitus with diabetic p olyneuropathy, with long-term current use of insulin (HRC) [E11.42, Z79.4] Tobacco use disorder (HRC) Tobacco use disorder Uncontrolled type 2 diabetes mellitus wi th diabetic polyneuropathy, with long-term current use of insulin (HRC) [E11.42, Z7 9.4, E11.65] Hyperlipidemia LDL goal < 70 Other and unspecified hyperlipidemia Essential hypertension (HRC) Unspecified essential hypertension documented in this encounter Care Teams Branch Sales Manager Relationship Specialty Start Date End Date Gagandeep Hinojosa MD PCP - General 05/17/[address] [place] [address] [place] [address] Vane Zarate Psychiatrsamantha Psychiatry 03/22/12 documented as of this encounter
--- OUTSIDE RECORDS SUMMARY | 2022-02-12 12:09 | XMS_ITS | Encounter Summary ---
:1970 Author Organization [employer] Address [address] [place] [address] Care Team Providers Name Role Phone Gagandeep Hinojosa MD Primary Care Provider Reason for Visit Reason Onset Date Comments INSECT STING--BEE--ED 12/31/2015 Encounter Details Date Type Department Care Team Description 12/31/2015 Nurse Triage [facility] Gagandeep Hinojosa S TING--BEE--ED Medicine MD Joanne [address] [place] [address] [address] [phone] [place], [place] [address] Social History Tobacco Use [...] documented as of this encounter Nursing Notes Kenia Lambert RN - 12/31/2015 1:22 PM CDT Protocol: [id number] Affirmative: Mosquito bite(s) Disposition of Home Care suggested. Pt was bit by a mosquito about 1 hour prior to phone call. Pt states sx of itching and numbness at bite site. Advised per home care instructions. Teri Vega - 12/31/2015 1:15 PM CDT Request to speak to nurse if appt needed for bug bite. documented in this encounter Plan of Treatment Not on filedocumented as of this encounter Visit Diagnoses Not on filedocumented in this encounter Care Teams Excavator Operator Relationship Specialty Start Date End Date Gagandeep Hinojosa MD PCP - General 05/17/[address] [place] [address] [place] [address] Vane Zarate Psychiatrist Psychiatry 03/22/12 documented as of this encounter
--- OUTSIDE RECORDS SUMMARY | 2022-02-12 12:09 | XMS_ITS | Encounter Summary ---
:1970 Author Organization [employer] Address [address] [place] [address] Care Team Providers Name Role Phone Gagandeep Hinojosa MD Primary Care Provider Encounter Details Date Type Department Care Team Description 11/04/2015 Lab Visit [facility] Laboratory Type 2 diabetes mellitus, un controlled ([facility]); [address] Bipolar I disorder ([facility]); [place] [address] Hyperlipidemia with target L DL less than 70 Social History Tobacco Use Types Packs/Day Years Used Date Smoking Tobacco: Never Assessed Sex Assigned at Date Recorded Not on file documented as of this encounter Plan of Treatment Not on filedocumented as of this encounter Procedures Procedure Name Priority Date/Time Associated Diagnosis Comme nts ALBUMIN/CREAT RATIO Routine 11/04/2015 3:18 Type 2 diabetes Re sults for this PM CDT mellitus, uncontrolled proce dure are in ([facility]) the results section. POCT GLYCOSYLATED STAT 11/04/2015 3:13 Type 2 diabetes Resu lts for this HEMOGLOBIN (HB A1C) PM CDT mellitus, uncontrolle d procedure are in ([facility]) the results section. LIVER PANEL(HEPATIC STAT 11/04/2015 3:13 Resul ts for this FUNCTION PANEL) PM CDT procedure ar e in the results section. VALPROIC ACID Routine 11/04/2015 3:13 Bipolar I disorder Resul ts for this (DEPAKENE) PM CDT ([facility]) procedure are i n the results section. ALT (SGPT) Routine 11/04/2015 3:13 Hyperlipidemia with Resul ts for this PM CDT target LDL less than procedu re are in 70 the results section. AST Routine 11/04/2015 3:13 Hyperlipidemia with Resul ts for this PM CDT target LDL less than procedu re are in 70 the results section. EXTRA SERUM STAT 11/04/2015 3:07 Results for this SEPARATOR TUBE PM CDT procedure are in (YELLOW) the results section. documented in this encounter Results (ABNORMAL) Microalb/Creat Ratio (11/04/2015 3:18 PM CDT) [facility] Method Time Signature Microalbumin 98.2 mg/L HP CONVERSION Urine U Creat Random 284 mg/dL HP CONVERSION Microalbumin/Cre 34.6 (H) 0.0 - HP CONVERSION atinine Ratio 30.0 Specimen Anatomical Collection Method Collection Time Receive d Time (Source) Location / / Volume Laterality 11/04/2015 3:18 PM 6 8:48 CDT AM CDT Narrative HP CONVERSION - 11/05/2015 9:25 AM CDT Performed at [facility], [address] [place] [address] CLIA number [id number] Gagandeep Hinojosa MD LAB_1 Performing Organization Address City/[facility] Phon e Number HP CONVERSION Liver Panel(Hepatic Function Panel) (11/04/2015 3:13 PM CDT) [facility] Method Time Signature Alk Phos 53 40 - 150 HP CONVERSION U/L Bilirubin Total 0.5 0.2 - 1.2 HP CONVERSION mg/dL Bilirubin, Direct 0.2 0.0 - 0.5 HP CONVERSIO N mg/dL Protein Total, Serum 7.0 6.4 - 8.3 HP CONVER CRISTHIAN g/dL Albumin 4.2 3.4 - 5.0 HP CONVERSION g/dL Aspartate 18 9 - 34 HP CONVERSION Aminotransferase U/L Alanine 18 9 - 55 HP CONVERSION Aminotransferase U/L Specimen Anatomical Collection Method Collection Time Receive d Time (Source) Location / / Volume Laterality 11/04/2015 3:13 PM 6 5:36 CDT PM CDT Narrative HP CONVERSION - 11/05/2015 6:06 PM CDT Performed at [facility], [facility] [address] [place] [address] CLIA number [id number] Gagandeep Hinojosa MD LAB_1 Performing Organization Address [facility]/ZIP Code Phon e Number HP CONVERSION ALT (SGPT) (11/04/2015 3:13 PM CDT) [facility] gist Method Time Signature Alanine 23 9 - 55 HP CONVERSION Aminotransferase U/L Specimen Anatomical Collection Method Collection Time Receive d Time (Source) Location / / Volume Laterality 11/04/2015 3:13 PM 6 8:48 CDT AM CDT Narrative HP CONVERSION - 11/05/2015 9:21 AM CDT Performed at [facility], [address] [place] [address] CLIA number [id number] Gagandeep Hinojosa MD LAB_1 Performing Organization Address City/[facility] Code Phon e Number HP CONVERSION AST (11/04/2015 3:13 PM CDT) [facility] Method Time Signature Aspartate 20 9 - 34 HP CONVERSION Aminotransferase U/L Specimen Anatomical Collection Method Collection Time Receive d Time (Source) Location / / Volume Laterality 11/04/2015 3:13 PM 6 8:48 CDT AM CDT Narrative HP CONVERSION - 11/05/2015 9:21 AM CDT Performed at [facility], [address] [place] [address] CLIA number [id number] Gagandeep Hinojosa MD LAB_1 Performing Organization Address [facility] Phon e Number HP CONVERSION Valproic Acid (Depakene) (11/04/2015 3:13 PM CDT) [facility] gist Method Time Signature Date Last Dose 11/04/2015 HP CONVERSION Valproic Acid Time Last Dose 8am HP CONVERSION Valproic Acid Valproic 53 50 - 100 HP CONVERSION Acid/Depakene ug/mL (Valp) Specimen Anatomical Collection Method Collection Time Receive d Time (Source) Location / / Volume Laterality 11/04/2015 3:13 PM 6 CDT 10:36 PM CDT Narrative HP CONVERSION - 11/04/2015 10:41 PM CDT Performed at [place] [address] [place] [address] CLIA number [id number] Gagandeep Hinojosa MD LAB_1 Performing Organization Address City/State/ZIP Code Phon e Number HP CONVERSION (ABNORMAL) POCT GLYCOSYLATED HEMOGLOBIN (HB A1C) (11/04/2015 3:13 PM CDT) Patholo gist Method Time Signature Glycosolated HGB 10.5 (H) 4.0 - 5.6 HP CONVERSION A1C (POC) % Comment: The Rapid A1c test is designed for monit oring patients with an established diagnosis of diabetes jasen litus. ??The rapid method is not suitable to establish the intial diagnosis of diabetes melitus. Specimen Anatomical Collection Method Collection Time Receive d Time (Source) Location / / Volume Laterality 11/04/2015 3:13 PM 6 3:13 CDT PM CDT Narrative HP CONVERSION - 11/04/2015 3:35 PM CDT Performed at [facility], [address] [place] [address] CLIA number [id number] Gagandeep Hinojosa MD LAB_1 Performing Organization Address [facility] Phon e Number HP CONVERSION EXTRA SERUM SEPARATOR TUBE (YELLOW) (11/04/2015 3:07 PM CDT) athologist Signature Extra SST Top Drawn HP CONVERSION Drawn Specimen (Source) Anatomical Collection Method Collection Time Re ceived Time Location / / Volume Laterality 11/04/2015 3:07 PM CDT Narrative HP CONVERSION - 11/04/2015 3:07 PM CDT Performed at [facility], [address] [place] [address] CLIA number [id number] Gagandeep Hinojosa MD LAB_1 Performing Organization Address [facility] Phon e Number HP CONVERSION documented in this encounter Visit Diagnoses Diagnosis Type 2 diabetes mellitus, uncontrolled Type II or unspecified type diabetes jasen litus without mention of complication, uncontrolled Bipolar I disorder (HRC) Bipolar I disorder, most recent episode (or current) unspecified Hyperlipidemia with target LDL less than 70 (HRC) Other and unspecified hyperlipidemia documented in this encounter Care Teams Stationary Boiler Fireman Relationship Specialty Start Date End Date Gagandeep Hinojosa MD PCP - General 05/17/[address] [place] [address] Vane Zarate Psychiatrist Psychiatry 03/22/12 documented as of this encounter
--- OUTSIDE RECORDS SUMMARY | 2022-02-12 12:09 | XMS_ITS | Encounter Summary ---
:1970 Author Organization [facility] Address [address] [place] [address] Care Team Providers Name Role Phone Gagandeep Hinojosa MD Primary Care Provider Encounter Details Date Type Department Care Team Description 07/22/2015 Notes/Orders [facility] Gagandeep Hinojosa MD [address] [facility] . [address] [place] [address] [place] [address] [phone] (Wo rk) Social History Tobacco Use Types Packs/Day Years Used Date Smoking Tobacco: Never Assessed Sex Assigned at Date Recorded Not on file documented as of this encounter Plan of Treatment Not on filedocumented as of this encounter Visit Diagnoses Not on filedocumented in this encounter Care Teams Founder And Chief Technical Officer Relationship Specialty Start Date End Date Gagandeep Hinojosa MD PCP - General 05/17/12 [address] [facility] [place] [address] Vane Zarate Psychiatrsamantha Psychiatry 03/22/12 documented as of this encounter
--- OUTSIDE RECORDS SUMMARY | 2022-02-12 12:09 | XMS_ITS | Encounter Summary ---
:1970 Author Organization [facility] Address [address], [place] [address] Care Team Providers Name Role Phone Gagandeep Hinojosa MD Primary Care Provider Reason for Visit Reason Comments MANTOUX/PPD Encounter Details Date Type Department Care Team Description 01/26/2016 Nursing Visit [facility] PPD scree miky test Medicine (Primary Dx) [address] [place] [address] Social History Tobacco Use Types Packs/Day Years [...] Comme nts TB SKIN TEST (PPD) Routine 01/29/2016 11:20 AM PPD screening t est Results for this CDT procedure are i n the results section. documented in this encounter Results TB SKIN TEST (PPD) (01/29/2016 11:20 AM CDT) [facility] Method Time Signature TB Skin Test 0.0 MM PN POCT Negative Joce Foster MD OPC IMMUNIZATION Performing Organization Address City/State/ZIP Code Phon e Number POCT PN POCT documented in this encounter Visit Diagnoses Diagnosis PPD screening test - Primary Screening examination for pulmonary tube rculosis documented in this encounter Care Teams Graphic Coordinator Relationship Specialty Start Date End Date Gagandeep Hinojosa MD PCP - General 05/17/12 [address] [facility] [place] [address] Vane Zarate Psychiatrist Psychiatry 03/22/12 documented as of this encounter
--- OUTSIDE RECORDS SUMMARY | 2022-02-12 12:09 | XMS_ITS | Encounter Summary ---
:1970 Author Organization [facility] Address [address] [place] [address] Care Team Providers Name Role Phone Gagandeep Hinjoosa MD Primary Care Provider Encounter Details Date Type Department Care Team Description 07/18/2015 Lab Visit [facility] Laboratory Type 2 diabetes mellitus, un controlled ([facility]); [address] Microalbuminuria; [place] [address] Hyperlipidemia; [phone] Essential hyper tension Social History Tobacco Use Types Packs/Day Years Used Date Smoking Tobacco: Never Assessed Sex Assigned at Date Recorded Not on file documented as of this encounter Plan of Treatment Not on filedocumented as of this encounter Procedures Procedure Name Priority Date/Time Associated Diagnosis Comme nts ALBUMIN/CREAT RATIO Routine 07/18/2015 9:12 Microalbuminuria R esults for this AM CDT procedure are i n the results section. POCT GLYCOSYLATED Routine 07/18/2015 9:01 Results for this HEMOGLOBIN (HB A1C) AM CDT procedur e are in the results section. LIPID PANEL AND Routine 07/18/2015 9:01 Type 2 diabetes Result s for this DIRECT LDL(IF AM CDT mellitus, uncontrolled proc edure are in NEEDED) ([facility]) the results Type 2 diabetes section. mellitus, uncontrolled ([facility]) Hyperlipidemia CREATININE / GFR Routine 07/18/2015 9:01 Type 2 diabetes Resul ts for this AM CDT mellitus, uncontrolled proce dure are in (HR) the results Essential hypertension secti on. ELECTROLYTE PANEL Routine 07/18/2015 9:01 Essential hypertensi on Results for this AM CDT procedure are i n the results section. EXTRA SERUM Routine 07/18/2015 8:48 Results for this SEPARATOR TUBE AM CDT procedure are in (YELLOW) the results section. documented in this encounter Results (ABNORMAL) Microalb/Creat Ratio (07/18/2015 9:12 AM CDT) [facility] Method Time Signature Microalbumin 349.6 mg/L HP CONVERSION Urine U Creat Random 254 mg/dL HP CONVERSION Microalbumin/Cre 137.6 (H) 0.0 - HP CONVERSION atinine Ratio 30.0 Specimen Anatomical Collection Method Collection Time Receive d Time (Source) Location / / Volume Laterality 07/18/2015 9:12 AM 6 CDT 11:32 AM CDT Narrative HP CONVERSION - 07/18/2015 12:56 PM CDT Performed at [facility], [address] [place], [place] [address] CLIA number [id number] Gagandeep Hinojosa MD LAB_1 Performing Organization Address [facility] Phon e Number HP CONVERSION (ABNORMAL) POCT GLYCOSYLATED HEMOGLOBIN (HB A1C) (07/18/2015 9:01 AM CDT) [facility] Time Signature Glycosolated HGB 12.1 (H) 4.0 - 5.6 HP CONVERSION A1C (POC) % Comment: The Rapid A1c test is designed for monit oring patients with an established diagnosis of diabetes jasen litus. ??The rapid method is not suitable to establish the intial diagnosis of diabetes melitus. Specimen Anatomical Collection Method Collection Time Receive d Time (Source) Location / / Volume Laterality 07/18/2015 9:01 AM 6 9:01 CDT AM CDT Narrative HP CONVERSION - 07/18/2015 9:15 AM CDT Performed at [facility], [address] [place] [address] CLIA number [id number] Gagandeep Hinojosa MD LAB_1 Performing Organization Address City/[facility] Phon e Number HP CONVERSION (ABNORMAL) Creatinine / GFR (07/18/2015 9:01 AM CDT) [facility] Method Time Signature Creatinine 0.60 (L) 0.73 - HP CONVERSION Serum 1.18 mg/dL Est GFR >60 >60 HP CONVERSION Am mL/min/1.7 3m2 Est GFR Non-Afr >60 >60 HP CONVERSION Am mL/min/1.7 3m2 Comment: Normal>60, moderate decrease 30 - 59, se lenora decrease 15 - 29, renal failure <15 mL/min/1.73 m2 NOTE: ??Choose the eGFR result above kaylee ropriate for the race of the patient. Specimen Anatomical Collection Method Collection Time Receive d Time (Source) Location / / Volume Laterality 07/18/2015 9:01 AM 6 CDT 11:32 AM CDT Narrative HP CONVERSION - 07/18/2015 12:47 PM CDT Performed at [facility], [address] [place] [address] CLIA number [id number] Gagandeep Hinojosa MD LAB_1 Performing Organization Address City/[facility] Phon e Number HP CONVERSION (ABNORMAL) Electrolyte Panel (07/18/2015 9:01 AM CDT) P athologist Signature Sodium 134 (L) 136 - 145 HP CONVERSION mmol/L Potassium 5.0 3.5 - 5.2 HP CONVERSION mmol/L Chloride 99 98 - 107 HP CONVERSION mmol/L Bicarbonate 25 22 - 29 HP CONVERSION mmol/L Specimen Anatomical Collection Method Collection Time Receive d Time (Source) Location / / Volume Laterality 07/18/2015 9:01 AM 6 CDT 11:32 AM CDT Narrative HP CONVERSION - 07/18/2015 12:47 PM CDT Performed at [facility], [address] [place] [address] CLIA number [id number] Gagandeep Hinojosa MD LAB_1 Performing Organization Address City/[facility] Phon e Number HP CONVERSION (ABNORMAL) Lipid Panel and Direct LDL(If Needed) (07/18/2015 9:01 AM CDT) Patholo gist Method Time Signature Cholesterol 168 0 - 199 HP CONVERSION mg/dL Triglycerides 328 (H) 4 - 149 HP CONVERSION mg/dL HDL Cholesterol 30 (L) >39 mg/dL HP CONVERSION Cholesterol/HDL 5.6 HP CONVERSION Ratio Screen LDL Calculated 72 19 - 130 HP CONVERSION mg/dL Length Of Fast 15.0 HP CONVERSION Specimen Anatomical Collection Method Collection Time Receive d Time (Source) Location / / Volume Laterality 07/18/2015 9:01 AM 6 CDT 11:32 AM CDT Narrative HP CONVERSION - 07/18/2015 12:47 PM CDT Performed at [facility], [address] [place] [address] CLIA number [id number] Gagandeep Hinojosa MD LAB_1 Performing Organization Address City/[facility] Phon e Number HP CONVERSION EXTRA SERUM SEPARATOR TUBE (YELLOW) (07/18/2015 8:48 AM CDT) athologist Signature Extra SST Top Drawn HP CONVERSION Drawn Specimen (Source) Anatomical Collection Method Collection Time Re ceived Time Location / / Volume Laterality 07/18/2015 8:48 AM CDT Narrative HP CONVERSION - 07/18/2015 8:48 AM CDT Performed at [facility], [facility] [place] [address] CLIA number [id number] Gagandeep Hinojosa MD LAB_1 Performing Organization Address City/[facility] Phon e Number HP CONVERSION documented in this encounter Visit Diagnoses Diagnosis Type 2 diabetes mellitus, uncontrolled Type II or unspecified type diabetes jasen litus without mention of complication, uncontrolled Microalbuminuria Proteinuria Hyperlipidemia (HRC) Other and unspecified hyperlipidemia Essential hypertension (HRC) Unspecified essential hypertension documented in this encounter Care Teams Corrosion Technician Relationship Specialty Start Date End Date Gagandeep Hinojosa MD PCP - General 05/17/[address] [place] [address] Vane Zarate Psychiatrsamantha Psychiatry 03/22/12 documented as of this encounter
--- OUTSIDE RECORDS SUMMARY | 2022-02-12 12:09 | XMS_ITS | Encounter Summary ---
:1970 Author Organization [facility] Address [address] [place] [address] Care Team Providers Name Role Phone Gagandeep Hinojosa MD Primary Care Provider Reason for Visit Reason Comments Registry Encounter Details Date Type Department Care Team Description 11/07/2015 Notes/Orders [facility] Gagandeep Hinojosa MD [address] [facility] . [address] [place] [address] [place] [address] [phone] (Wo rk) Social History Tobacco Use Types Packs/Day Years Used Date Smoking Tobacco: Never Assessed Sex Assigned at Date Recorded Not on file documented as of this encounter Plan of Treatment Not on filedocumented as of this encounter Visit Diagnoses Not on filedocumented in this encounter Care Teams Recovery Manager Relationship Specialty Start Date End Date Gagandeep Hinojosa MD PCP - General 05/17/12 [facility] [address] Vane Zarate Psychiatrist Psychiatry 03/22/12 documented as of this encounter
--- OUTSIDE RECORDS SUMMARY | 2022-02-12 12:09 | XMS_ITS | Encounter Summary ---
:[address] [facility] Address [address] [place] [address] Care Team Providers Name Role Phone Gagandeep Hinojosa MD Primary Care Provider Reason for Visit Reason Comments Prior Authorization Request Encounter Details Date Type Department Care Team Description 07/31/2015 Telephone [facility] Gagandeep Hinojosa Au thorization [facility] MD Joanne Request [address] [facility] . [address] [place] [address] Ave [phone] [place], [place] [address] Social History Tobacco Use Types Packs/Day Years Used Date Smoking Tobacco: Never Assessed Sex Assigned at Date Recorded Not on file documented as of this encounter Nursing Notes Haley Smith LPN - 08/25/2015 11:20 AM CDT Marco Antonio, has this issue been checked into? ICATION SUPPORT ANALYST Gagandeep Hinojosa MD - 08/05/2015 10:09 AM CDT All of these insulins are tier 3 costs. Please call pharmacy. How much would these cost the patient? IT Marco Antonio Malcolm MA - 07/31/2015 3:30 PM CDT PRIOR AUTHORIZATION OR CHANGE MEDICATIONS? Comment: 30 day supply provided, med not covered after Pharmacy Name: [facility] Fax# or Address: [phone] Clinician Name: Ashish Drug Name/Strength: Novolin R 100unit per mL Sig: Inject 76 Units subcutaneously 2 times daily (before meals). BREAKFAST AND DINNER Formulary Alternative: See list in providers inbasket Insurance Carrier: [employer] Would you like to switch pt to formulary alternative (see list in your inbasket) or start PA for Novolin? documented in this encounter Plan of Treatment Not on filedocumented as of this encounter Visit Diagnoses Not on filedocumented in this encounter Care Teams Director Of Cloud Services Relationship Specialty Start Date End Date Gagandeep Hinojosa MD PCP - General 05/17/12 [facility] [place] [address] Vane Zarate Psychiatrist Psychiatry 03/22/12 documented as of this encounter
--- OUTSIDE RECORDS SUMMARY | 2022-02-12 12:09 | XMS_ITS | Encounter Summary ---
:1970 Author Organization [facility] Address [address] [place] [address] Care Team Providers Name Role Phone Gagandeep Hinojosa MD Primary Care Provider Reason for Visit Reason Onset Date Comments Lab Orders Needed 02/23/2016 Encounter Details Date Type Department Care Team Description 02/23/2016 Telephone [facility] Gagandeep Hinojosa, Lab Orders Needed [address] [place] [address] [address] [facility] [phone] [place] [phone] (Wo rk) Social History Tobacco [...] documented as of this encounter Nursing Notes Dominique Hill - 02/23/2016 1:43 PM CDT Patient was notified that lab was ordered. Gagandeep Hinojosa MD - 02/23/2016 1:36 PM CDT Done Marci Oliveira RN - 02/23/2016 11:46 AM CDT Reason for Call: New order requested. Next Steps: Review pended order for accuracy. Sign. Route to appropriate person/pool. Caller IS expecting a call back from Care Team. Additional Information: Hung Soria - 02/23/2016 11:36 AM CDT Pt looking for lab orders for A1C to be placed, states that normally comes in for labs before diabetes follow up appointments but no orders on file. Pt does have appointment scheduled for tomorrow 02/24/16 at 11am. documented in this encounter Plan of Treatment Not on filedocumented as of this encounter Results (ABNORMAL) Microalbumin Urine Random (UMAR) (02/24/2016 11:10 AM CDT) [facility] gist Method Time Signature Microalbumin 114.2 mg/L [...] - 02/24/2016 4:26 PM CDT Performed at [facility], [address] [place] [id number] CLIA number [id number] Gagandeep Hinojosa MD LAB_1 Performing Organization Address City/State/ZIP Code Phon e Number PN SOFT [address] [place], [place] [address] [phone] documented in this encounter Visit Diagnoses Diagnosis Uncontrolled type 2 diabetes mellitus wi th diabetic polyneuropathy, with long-term current use of insulin - Primary Uncontrolled type 2 diabetes mellitus wi th diabetic polyneuropathy, with long-term current use of insulin Nonspecific abnormal results of liver fu nction study documented in this encounter Care Teams Lime Burner Relationship Specialty Start Date End Date Gagandeep Hinojosa MD PCP - General 05/17/12 [address] [facility] [place] [address] Vane Zarate Psychiatrist Psychiatry 03/22/12 documented as of this encounter
--- OUTSIDE RECORDS SUMMARY | 2022-02-12 12:09 | XMS_ITS | Encounter Summary ---
:1970 Author Organization [employer] Address [address] [place] [address] Care Team Providers Name Role Phone Gagandeep Hinojosa MD Primary Care Provider Reason for Visit Reason Comments Diabetes Letter needs letter for work re ralph traore Encounter Details Date Type Department Care Team Description 02/24/2016 Office Visit Gagandeep Storm Uncontro lled type 2 diabetes mellitus without complication, with long-term current use of insulin (HRC) (Primary Dx); Romario Rubio MD Encounter for immunization; [address] [place] [address] [facility] Tobacco use disorder; Ave. Ave Uncontrolled type 2 diabetes mellitus wi thout complication, with long-term current use of insulin (HRC) [E11.65, Z79.4]; KATIANA Vigil [address] KATIANA VIGIL Hyperlipidemia, unspecified hyperlipidemia type (HRC) [E78.5]; [phone] [id number] Financial difficulties Social History Tobacco Use Types Packs/Day Years [...] Sign Reading Time Taken Comments Blood Pressure 132/86 02/24/2016 11:11 AM CDT Pulse 64 02/24/2016 11:11 AM CDT Temperature - - Respiratory Rate - - Oxygen Saturation - - Inhaled Oxygen Concentration - - Weight 103.4 kg (228 lb) 02/24/2016 11:11 AM CDT Height - - Body Mass Index 32.71 02/14/2014 12:57 PM CDT documented in this encounter Progress Notes Gagandeep Hinojosa MD - 02/24/2016 11:20 AM CDT SUBJECTIVE: 46 y.o. male presents today for diabetes check. Accompanied by healthcare coordinator, Judy Pittman, to discuss alternative medication management strategies secondary to finances. Continues to ration his medications secondary to financial stress. Continues to smoke, attempting to decrease/quit. Uses patches irregularly with minimal success. Blood pressure remains stable. Stable weight. 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 Aspirin: Continues to take aspirin daily. No stomach pains, no black or tarry stools. Blood pressure:Patient has not been checking blood pressures at home. No chest pain. No dyspnea. Patient did not bring in outside blood pressure records. Blood sugars: Patient has been checking blood sugars. Blood sugars have not been at goal. No symptomatic highs or lows. Patient did not bring in outside records. Cholesterol: Lipids have been at goal. No muscle aches or pains. Tobacco: Patient reports that he has been smoking Cigarettes. He has been smoking about 0.50 packs per day for the past 25 years. He quit smokeless tobacco use about 3 years ago. Eye exam: Patient is up-to-date with eye exam. Completed 07/28/15. Patient does not have a history of retinopathy. No blurry or double vision. Foot exam: Patient does have a history of numbness. Kidney health: does not have a history [...] (DEPAKOTE) 500 MG enteric coated tablet Take 2,000 mg by mouth DAILY MORNING LAB. Do not cut/crush/chew. Take with food. ??? insulin pen needle (INSULIN PEN NEEDLES) 31G X 8 MM SHORT use witheach dose 200 each prn ??? insulin pen needle (INSULIN PEN NEEDLES) 31G X 8 MM SHORT Use 2-4 times per day 200 each prn ??? Insulin Syringe-Needle U-100 (INSULIN SYRINGE 1CC/28G) 28G X 1/2 1 ML Indications: PN: LULI REYNOLDS Shyla Mar 27, 2015 2:05 PM Received from: External Pharmacy 3 ??? Insulin Syringe-Needle U-100 (INSULIN SYRINGE 1CC/28G) 28G X 1/2 1 ML Inject 1 each subcutaneously 4 times daily. 500 each 3 ??? Insulin Syringe-Needle U-100 (INSULIN SYRINGE 1CC/28G) 28G X 1/2 1 ML Inject 1 each subcutaneously 4 times daily. 500 each 3 ??? ketoconazole (NIZORAL) 2 % cream Apply topically daily (every 24 hours). 45 g 2 ??? lisinopril (ZESTRIL) 5 MG tablet TAKE [...] (every 24 hours). 90 tablet 3 ??? NICOTINE TD Place 1 patch onto the skin. ??? omega-3 fatty acids (FISH OIL) 1000 MG capsule Take 2 capsules by mouth 2 times daily. Indications: HYPERTRIGLYCERIDEMIA 360 capsule 3 ??? risperiDONE (RISPERDAL) 4 MG tablet Take 4 mg by mouth daily (every 24 hours). ??? Tadalafil (CIALIS) 20 MG tablet Take 1 tablet by mouth as needed for Erectile Dysfunction. Take 30 minutes prior to sexual activity 10 tablet 0 ??? insulin isophane (NOVOLINNPH,HUMULINN) 100 UNIT/ML injection Inject 80 Units subcutaneously 2 times daily (before meals). BREAKFAST AND DINNER 40 mL 2 ??? insulin regular (HUMULIN R) 100 UNIT/ML injection Inject 76 Units subcutaneously 2 times daily (before meals). BREAKFAST AND DINNER 40 mL 2 ??? ondansetron (ZOFRAN-ODT) [address] 4 mg under the tongue. No facility-administered medications prior to visit. Adverse Drug Reactions: Allergies Allergen Reactions ??? Aripiprazole PN: permanent shaking in left arm ??? Haloperidol Shock ??? Nitroglycerin PN: nausea ??? Thiothixene Other, see comments PN: Muscle spasm OBJECTIVE: Vital Signs: BP 132/86 mmHg Pulse 64 Wt 228 lb (103.42 kg) General: Alert, Oriented, NAD Head: Normocephalic. Eyes: PERRLA, full EOM. External exams normal. Nose: Patent, without deformity.Throat: Moist mucous membranes without lesions, erythema, or exudate. Heart: RR without murmurs, rubs, or gallops. Respiratory: Normal respiratory effort. Lungs are clear with good breath sounds. Abdomen: The abdomen was soft and nontender without guarding rebound or masses. Positive bowel sounds. Obese. Feet: Normal exam: no sores, no swelling, no edema. Good pulses. Monofilament exam of the foot is normal: No numbness in the digits. Labs: Lab Results Component Value Date HGBA1C 10.9* 03/27/2015 UMICROALB 98.2 11/04/2015 CREATININE 0.60* 07/18/2015 Lab Results Component Value Date CHOL 168 07/18/2015 CHOL 5.6 07/18/2015 HDL 30* 07/18/2015 LDL 72 07/18/2015 TRI 328* 07/18/2015 Lab Results Component Value Date ALT 23 [...] with long-term current use of insulin(HRC) E11.65 insulin regular (HUMULIN R) 100 UNIT/ML injection Z79.4 insulin isophane (NOVOLIN NPH,HUMULIN NPH) 100 UNIT/ML injection 2. Encounter for immunization Z23 Influenza (Fluarix 0.5, 3+ Yrs) 3. Tobacco use disorder (HR) F17.200 TOBACCO-USE AXLE INSPECTOR 3-10 MIN (SYMPTOMATIC) 4. Uncontrolled type 2 diabetes mellitus without complication, with long-term current use of insulin(HRC) [E11.65, Z79.4] E11.65 Microalb/Creat Ratio Z79.4 POCT Glycosylated Hemoglobin (HB A1C) Basic Metabolic Panel 5. Hyperlipidemia, unspecified hyperlipidemia type (HRC) [E78.5] E78.5 Lipid Panel and Direct LDL(IfNeeded) 6. Financial difficulties Z59.8 PLAN: 1. Recheck in 3 months. The patient was discharged ambulatory and in stable condition. Diabetes measures: A1c Due: 3 months Foot Exam: 3 months Eye exam: UTD Cholesterol: 3 months Electrolytes: pending UMAR: pending Aspirin: yes Tobacco: yes I, Shante Pond, am serving as a scribe to document services personally performed by Gagandeep Hinojosa MD, based upon my observations and the provider's statements to me. All documentation has been reviewed by the aforementioned doctor prior to being entered into the official medical record. I, Gagandeep Hinojosa MD, attest that the above is a true reflection of my patient encounter and that I have made the final edit. documented in this encounter Plan of Treatment Not on filedocumented as of this encounter Results (ABNORMAL) Microalb/Creat Ratio (06/09/2016 10:18 AM ECONOMICS LECTURER) [facility] Signature Microalbumin 80.1 mg/L PN SOFT Urine U Creat Random 102 mg/dL PN SOFT Microalbumin/Crea 78.5 (H) 0.0 - PN SOFT tinine Ratio 30.0 Specimen Anatomical Collection Method Collection Time Receive d Time (Source) Location / / Volume Laterality Urine specimen 06/09/2016 10:18 7 (specimen) AM ECONOMICS LECTURER 11:38 AM ECONOMICS LECTURER Narrative PN SOFT - 06/09/2016 2:09 PM ECONOMICS LECTURER Performed at [facility], [facility] [address] [place] [address] CLIA number [id number] Gagandeep Hinojosa MD LAB_1 [address]forming [address] [facility] Phon e Number PN SOFT [address] [place] [address] (ABNORMAL) Lipid Panel and Direct LDL(If Needed) (06/09/2016 9:22 AM ECONOMICS LECTURER) [facility] Signature Cholesterol 123 0 - 199 PN SOFT mg/dL Triglycerides 97 4 - 149 PN SOFT mg/dL HDL Cholesterol 39 (L) >39 mg/dL PN SOFT Cholesterol/HDL 3.2 PN SOFT Ratio Screen LDL Calculated 65 19 - 130 PN SOFT mg/dL Length Of Fast 1.0 PN SOFT Specimen Anatomical Collection Method Collection Time Receive d Time (Source) Location / / Volume Laterality 06/09/2016 9:22 AM 7 ECONOMICS LECTURER 11:38 AM ECONOMICS LECTURER Narrative PN SOFT - 06/09/2016 12:25 PM ECONOMICS LECTURER Performed at [facility], [address] [place] [address] CLIA number [id number] Gagandeep Hinojosa MD LAB_1 Performing Organization [address] [facility] Phon e Number PN SOFT [address] [place] [address] (ABNORMAL) POCT Glycosylated Hemoglobin (HB A1C) (06/09/2016 9:22 AM ECONOMICS LECTURER) Patholo gist Method Time Signature Glycosolated HGB 12.5 (H) 4.0 - 5.6 PN SOFT A1C (POC) % Comment: The Rapid A1c test is designed for monit oring patients with an established diagnosis of diabetes jasen litus. ??The rapid method is not suitable to establish the intial diagnosis of diabetes melitus. Specimen Anatomical Collection Method Collection Time Receive d Time (Source) Location / / Volume Laterality 06/09/2016 9:22 AM 7 9:22 ECONOMICS LECTURER AM ECONOMICS LECTURER Narrative PN SOFT - 06/09/2016 9:45 AM ECONOMICS LECTURER Performed at [facility], [address] [place] [address] CLIA number [id number] Gagandeep Hinojosa MD LAB_1 Performing Organization Address City/State/ZIP Code Phon e Number PN SOFT [address] [place] [address] documented in this encounter Visit Diagnoses Diagnosis Uncontrolled type 2 diabetes mellitus wi thout complication, with long-term current use of insulin (HRC) [E11.65, Z79.4] - P rimary Encounter for immunization Need for other specified prophylactic va ccination against single bacterial disease Tobacco use disorder (HRC) Tobacco use disorder Hyperlipidemia, unspecified hyperlipidem ia type (HRC) [E78.5] Financial difficulties Inadequate material resources documented in this encounter Care Teams Hand Blocker Relationship Specialty Start Date End Date Gagandeep Hinojosa MD PCP - General 05/17/[address] [place] [address] Vane Zarate Psychiatrsamantha Psychiatry 03/22/12 documented as of this encounter
--- OUTSIDE RECORDS SUMMARY | 2022-02-12 12:09 | XMS_ITS | Encounter Summary ---
:1970 Author Organization [employer] Address [address] [place] [address] Care Team Providers Name Role Phone Gagandeep Hinojosa MD Primary Care Provider Reason for Visit Reason Comments MANTOUX/PPD READ Encounter Details Date Type Department Care Team Description 01/29/2016 [facility] Encounter for PPD skin Medicine test reading (Primary 14[address] [facility] . Dx) KAT[place] Vigil [id number] Social History Tobacco Use Types Packs/Day Years [...] imary documented in this encounter Care Teams Land Manager Relationship Specialty Start Date End Date Gagandeep Hinojosa MD PCP - General 05/17/[address] [facility] [place] VIGIL [id number] Vane Zarate Psychiatrist Psychiatry 03/22/12 documented as of this encounter
--- OUTSIDE RECORDS SUMMARY | 2022-02-12 12:09 | XMS_ITS | Encounter Summary ---
:1970 Author Organization [employer] Address [address] [address] Care Team Providers Name Role Phone Gagandeep Hinojosa MD Primary Care Provider Reason for Visit Reason Comments NUMBNESS Neck Pain Encounter Details Date Type Department Care Team Description 07/09/2015 Nurse Triage [facility] Gagandeep Hinojosa, SHASHANK ESS; Neck Pain Medicine 1415 [facility] . 14[address] [place] [address] [place] [address] [phone] (Wo rk) Social History Tobacco Use Types Packs/Day Years Used Date Smoking Tobacco: Never Assessed Sex Assigned at Date Recorded Not on file documented as of this encounter Nursing Notes Cordelia Leyva RN - 07/09/2015 9:44 AM CDT Protocol: NECK PAIN OR [id number] Affirmative: Neck pain or stiffness Disposition of Home Care suggested. Patient noticing mild numbness on the right side of the back of his neck. Intermittent. Is able to do all normal daily activities. No pain in neck. No known injury. Random numbness. Does not lift heavyobjects or weights. Does power walking. Has not taken any OTC medications or tried ice/heat. No chest pain, speech changes. No numbness or weakness of face, arms or legs. No fever. Mis Torres - 07/09/2015 9:30 AM CDT numbness at the base of neck, and back documented in this encounter Plan of Treatment Not on filedocumented as of this encounter Visit Diagnoses Not on filedocumented in this encounter Care Teams Station Installer Relationship Specialty Start Date End Date Gagandeep Hinojosa MD PCP - General 05/17/[address] [place], [place] [address]KATIANA Rodriguez [address] Vane Zarate Psychiatrist Psychiatry 03/22/12 documented as of this encounter
--- OUTSIDE RECORDS SUMMARY | 2022-02-12 12:09 | XMS_ITS | Encounter Summary ---
:1970 Author Organization [facility] Address [address] [place] [address] Care Team Providers Name Role Phone Gagandeep Hinojosa MD Primary Care Provider Reason for Visit Reason Comments Test Request Encounter Details Date Type Department Care Team Description 11/03/2015 Telephone [facility] Gagandeep Hinojosa MD Test Request 1415 [facility] . [address] [place] [address] [place] [address] [phone] (Wo rk) Social History Tobacco Use Types Packs/Day Years Used Date Smoking Tobacco: Never Assessed Sex Assigned at Date Recorded Not on file documented as of this encounter Nursing Notes Jud Lui LPN - 11/04/2015 2:22 PM CDT Patient notified orders are placed, if he has any additional order requests he will ask Dr Hinojosa when he sees him today. Gagandeep Hinojosa MD - 11/03/2015 6:48 PM CDT What orders? Gina Cohen RN - 11/03/2015 1:55 PM CDT Reason for Call: Lab orders requested. Next Steps: Route to [facility] for patient follow up. Additional Information: Pt requesting additional labs for tomorrows visit. Pt states his psych provider wanted to have other labs checked. Please review pended orders. Georgia Rascon - 11/03/2015 12:53 PM CDT Lab/Radiology Requests Primary Care Provider: Gagandeep Hinojosa MD What test is needed and when? Depakote Levels and the CK Why is test needed/requested? Pt states is coming tomorrow morning for other tests from PCP and pt'sPsychiatrist Dr Zarate advised to ask PCP to add these tests that she would like pt to also have. Please enter orders in system and call pt when done so pt is sure they were added to his orders for tomorrow. *If symptom related, send to triage Transplant Surgeon: Timur Krishnamurthy Best call back number: [phone] cell vm/y Is it OK to leave a confidential message on this voicemail? yes R OPERATOR documented in this encounter Plan of Treatment Not on filedocumented as of this encounter Visit Diagnoses Diagnosis Bipolar I disorder (HRC) Bipolar I disorder, most recent episode (or current) unspecified Hyperlipidemia with target LDL less than 70 (HRC) Other and unspecified hyperlipidemia documented in this encounter Care Teams Brim Shaper Relationship Specialty Start Date End Date Gagandeep Hinojosa MD PCP - General 05/17/12 [facility] [place] Ger[place] [address] Vane Zarate Psychiatrist Psychiatry 03/22/12 documented as of this encounter
--- OUTSIDE RECORDS SUMMARY | 2022-02-12 12:09 | XMS_ITS | Encounter Summary ---
:1970 Author Organization [employer] Address [address] [place] [address] Care Team Providers Name Role Phone Gagandeep Hinojosa MD Primary Care Provider Reason for Visit Reason Comments Diabetes Encounter Details Date Type Department Care Team Description 09/27/2015 Nurse Triage [facility] Gagandeep Hinojosa MD Diabetes 1415 [facility] . 14[address] [place] [address] [place] [address] [phone] (Wo rk) Social History Tobacco Use Types Packs/Day Years Used Date Smoking Tobacco: Never Assessed Sex Assigned at Date Recorded Not on file documented as of this encounter Nursing Notes Melanie Smith RN - 09/27/2015 9:40 AM CDT Protocol: DIABETES - HIGH BLOOD [id number] Affirmative: Blood glucose > 400 mg/dl (22 mmol/l) Disposition of Call PCP Now suggested. PT took his BS this morning and it was 471. It usually runs in the 150's. He is a little sweaty but otherwise ok. He just took his Insulin , his novolin N and Novolin R . Does not have a sliding scale.Call placed to the monorail helper, Dr Ding, who recommended that pt give the Insulins time to kick in [facility] in one hour. Pt called back and informed of this. Pt at this time says he feels dizzy and sweaty and not well. He wants to be seen. Recommended that pt be seen. documented in this encounter Plan of Treatment Not on filedocumented as of this encounter Visit Diagnoses Not on filedocumented in this encounter Care Teams Slurry Control Operator Helper Relationship Specialty Start Date End Date Gagandeep Hinojosa MD PCP - General 05/17/12 1415 [facility] [place] [address] Vane Zarate Psychiatrist Psychiatry 03/22/12 documented as of this encounter
--- OUTSIDE RECORDS SUMMARY | 2022-02-12 12:09 | XMS_ITS | Encounter Summary ---
:1970 [address] [facility] Address [address], [place] [address] Care Team Providers Name Role Phone Gagandeep Hinojosa MD Primary Care Provider Encounter Details Date Type Department Care Team Description 07/07/2015 Notes/Orders [facility] Gagandeep Hinojosa MD 1415 [facility] . [address] [place] [address] [place] [address] [phone] (Wo rk) Social History Tobacco Use Types Packs/Day Years Used Date Smoking Tobacco: Never Assessed Sex Assigned at Date Recorded Not on file documented as of this encounter Miscellaneous Notes Letter - Gagandeep Hinojosa MD - 07/07/2015 12:00 AM CDT 07/07/2015 Timur Krishnamurthy [address] [place] [id number] : 1970 Dear Timur: Gagandeep Hinojosa MD has reviewed your medical record and noticed you have not scheduled your diabetes visit. We want to make sure your diabetes treatment plan is right for you. Please call and schedule your visit at [phone]. We look forward to hearing from you, Gagandeep Hinojosa MD R documented in this encounter Plan of Treatment Not on filedocumented as of this encounter Visit Diagnoses Not on filedocumented in this encounter Care Teams Map Editor Relationship Specialty Start Date End Date Gagandeep Hinojosa MD PCP - General 05/17/12 14[address] [facility] [place] [address] Vane Zarate Psychiatrist Psychiatry 03/22/12 documented as of this encounter
--- OUTSIDE RECORDS SUMMARY | 2022-02-12 12:09 | XMS_ITS | Encounter Summary ---
:1970 Author Organization [facility] Address [address], [place] [address] Care Team Providers Name Role Phone Gagandeep Hinojosa MD Primary Care Provider Reason for Visit Reason Comments MANTOUX/PPD Encounter Details Date Type Department Care Team Description 02/05/2016 [facility] PPD scree miky test Medicine (Primary Dx) [address] [place] [address] Social History Tobacco Use Types Packs/Day Years [...] Comme nts TB SKIN TEST (PPD) Routine 02/07/2016 PPD screening test Res ults for this procedure are i n the results section . documented in this encounter Results TB SKIN TEST (PPD) (02/07/2016) P athologist Signature TB Skin Test 0 PN POCT Comment: negative Gagandeep Hinojosa MD OPC IMMUNIZATION Performing Organization Address City/State/ZIP Code Phon e Number POCT PN POCT documented in this encounter Visit Diagnoses Diagnosis PPD screening test - Primary Screening examination for pulmonary tube rculosis documented in this encounter Care Teams Director Of Intercollegiate Athletics Relationship Specialty Start Date End Date Gagandeep Hinojosa MD PCP - General 05/17/12 1415 [facility] [place] [address] Vane Zarate Psychiatrist Psychiatry 03/22/12 documented as of this encounter
--- OUTSIDE RECORDS SUMMARY | 2022-02-12 12:10 | XMS_ITS | Encounter Summary ---
:1970 Author Organization [facility] Address [address] [address] Care Team Providers Name Role Phone Gagandeep Hinojosa MD Primary Care Provider Encounter Details Date Type Department Care Team Description 11/06/2014 Notes/Orders [facility] Gagandeep Hinojosa MD 1415 [facility] . [address] [place] [address] [place] [address] [phone] (Wo rk) Social History Tobacco Use Types Packs/Day Years Used Date Smoking Tobacco: Never Assessed Sex Assigned at Date Recorded Not on file documented as of this encounter Miscellaneous Notes Letter - Gagandeep Hinojosa MD - 11/06/2014 12:00 AM CDT 11/06/2014 Timur Krishnamurthy [address] [place] [id number] : 1970 Dear Timur: I am contacting you with a reminder that it is time for your diabetes visit , please call [phone] to schedule your visit due in October. To prepare for this visit, it is important that you have your labs drawn prior to your appointment so the results are available for review at your visit. You will need to have the following tests: Hemoglobin A1C. You do not have to fast for these labs. You will not need to give a urine specimen. These tests should be completed 30 minutes before your visit. You can schedule your lab appointment at [phone]. Please continue to take your medications as prescribed. We look forward to seeing you again. Gagandeep Hinojosa MD (General) MILL MAN documented in this encounter Plan of Treatment Not on filedocumented as of this encounter Visit Diagnoses Not on filedocumented in this encounter Care Teams Assignment Officer Relationship Specialty Start Date End Date Gagandeep Hinojosa MD PCP - General 05/17/[address] [place] [address] Vane Zarate Psychiatrist Psychiatry 03/22/12 documented as of this encounter
--- OUTSIDE RECORDS SUMMARY | 2022-02-12 12:10 | XMS_ITS | Encounter Summary ---
:1970 Author Organization [employer] Address [address] [place] [address] Care Team Providers Name Role Phone Gagandeep Hinojosa MD Primary Care Provider Encounter Details Date Type Department Care Team Description 03/27/2015 Lab Visit [facility] Type 2 diabetes mellitus, un controlled; [address] Hyperlipidemia; [place] [address] Essential hypertension [phone] Social History Tobacco Use Types Packs/Day Years Used Date Smoking Tobacco: Never Assessed Sex Assigned at Date Recorded Not on file documented as of this encounter Plan of Treatment Not on filedocumented as of this encounter Procedures Procedure Name Priority Date/Time Associated Diagnosis Comme nts ALBUMIN/CREAT RATIO Routine 03/27/2015 3:41 Type 2 diabetes Re sults for this PM TRUCK DRIVER HEAVY mellitus, uncontrolled proce dure are in (HRC) the results section. LIPID PANEL AND Routine 03/27/2015 1:53 Essential hypertension Results for this DIRECT LDL(IF PM [employer] [facility] procedure are in NEEDED) the results section. CREATININE / GFR Routine 03/27/2015 1:53 Essential hypertensio n Results for this PM [employer] DR[employer] [facility] procedure are i n the results section. ELECTROLYTE PANEL Routine 03/27/2015 1:53 Hyperlipidemia Resul ts for this PM [employer] [facility] procedure are i n the results section. documented in this encounter Results (ABNORMAL) Microalb/Creat Ratio (03/27/2015 3:41 PM TRUCK DRIVER HEAVY) [facility] Method Time Signature Microalbumin 26.1 mg/L HP CONVERSION Urine U Creat Random 63 58 - 161 HP CONVERSION mg/dL Microalbumin/Cre 41.4 (H) 0.0 - HP CONVERSION atinine Ratio 30.0 Specimen Anatomical Collection Method Collection Time Receive d Time (Source) Location / / Volume Laterality 03/27/2015 3:41 PM 5 5:47 TR[facility] DR[facility] PM [facility] DRIVER [facility] Narrative HP CONVERSION - 03/27/2015 6:43 PM TR[facility] DR[facility] Performed at [facility], [facility] [address] [place] [address] CLIA number [id number] Gagandeep Hinojosa MD LAB_1 Performing Organization Address [facility] Phon e Number HP CONVERSION (ABNORMAL) Lipid Panel and Direct LDL(If Needed) (03/27/2015 1:53 PM TRUCK DRIVER HEAVY) [facility] Method Time Signature Cholesterol 148 0 - 199 HP CONVERSION mg/dL Triglycerides 292 (H) 4 - 149 HP CONVERSION mg/dL HDL Cholesterol 31 (L) >39 mg/dL HP CONVERSION Cholesterol/HDL 4.8 HP CONVERSION Ratio Screen LDL Calculated 59 19 - 130 HP CONVERSION mg/dL Length Of Fast 2.0 HP CONVERSION Specimen Anatomical Collection Method Collection Time Receive d Time (Source) Location / / Volume Laterality 03/27/2015 1:53 PM 5 5:47 TRUCK DRIVER HEAVY PM [employer] DRIVER HE[employer]Y Narrative HP CONVERSION - 03/27/2015 6:44 PM TRUCK DRIVER HEAVY Performed at [facility], [facility] [address] [place] [address] CLIA number [id number] Gagandeep Hinojosa MD LAB_1 Performing Organization Address [facility] Phon e Number HP CONVERSION (ABNORMAL) Creatinine / GFR (03/27/2015 1:53 PM TRUCK DRIVER HEAVY) [facility] Method Time Signature Creatinine 0.60 (L) 0.73 [...] Time (Source) Location / / Volume Laterality 03/27/2015 1:53 PM 5 5:47 TRUCK DRIVER HEAVY PM TRUCK DRIVER HEAVY Narrative HP CONVERSION - 03/27/2015 6:44 PM TRUCK DRIVER HEAVY Performed at [facility], [address] [place] [address] CLIA number [id number] Gagandeep Hinojosa MD LAB_1 Performing Organization Address [facility] Phon e Number HP CONVERSION (ABNORMAL) Electrolyte Panel (03/27/2015 1:53 PM TRUCK DRIVER HEAVY) athologist Signature Sodium 133 (L) 136 - 145 HP CONVERSION mmol/L Potassium 5.0 3.5 - 5.2 HP CONVERSION mmol/L Chloride 98 98 - 107 HP CONVERSION mmol/L Bicarbonate 24 22 - 29 HP CONVERSION mmol/L Specimen Anatomical Collection Method Collection Time Receive d Time (Source) Location / / Volume Laterality 03/27/2015 1:53 PM 5 5:47 TRUCK DRIVER HEAVY PM TRUCK DRIVER HEAVY Narrative HP CONVERSION - 03/27/2015 6:44 PM TRUCK DRIVER HEAVY Performed at [facility], [address] [place] [address] CLIA number [id number] Gagandeep Hinojosa MD LAB_1 Performing Organization Address [facility] Phon e Number HP CONVERSION documented in this encounter Visit Diagnoses Diagnosis Type 2 diabetes mellitus, uncontrolled Type II or unspecified type diabetes jasen litus without mention of complication, uncontrolled Hyperlipidemia (HRC) Other and unspecified hyperlipidemia Essential hypertension (HRC) Unspecified essential hypertension documented in this encounter Care Teams Manager Php Relationship Specialty Start Date End Date Gagandeep Hinojosa MD PCP - General 05/17/12 [facility]5 [facility] [place] [id number] Vane Zarate Psychiatrsamantha Psychiatry 03/22/12 documented as of this encounter
--- OUTSIDE RECORDS SUMMARY | 2022-02-12 12:10 | XMS_ITS | Encounter Summary ---
:1970 Author Organization [facility] Address [address] [place] [address] Care Team Providers Name Role Phone Gagandeep Hinojosa MD Primary Care Provider Encounter Details Date Type Department Care Team Description 02/18/2015 Notes/Orders [place] [facility] Gagandeep Hinojosa Type 2 d layo Rubio MD mellitus, uncontrolled [address] [facility] (Primary Dx) [place] [address] Ave [phone] [facility]3 [address] Social History Tobacco Use Types Packs/Day Years Used Date Smoking Tobacco: Never Assessed Sex Assigned at Date Recorded Not on file documented as of this encounter Miscellaneous Notes Letter - Gagandeep Hinojosa MD - 02/18/2015 12:00 AM CDT 02/18/2015 Timur Krishnamurthy [address] [place] [id number] : 1970 Dear Timur: I am contacting you with a reminder that it is time for your diabetes visit , please call [phone] to schedule your visit due in February. To prepare for this visit, it is important that you have your labs drawn prior to your appointment so the results are available for review at your visit. You will need to have the following tests: Hemoglobin A1C and Urine microalbumin. You do not have to fast for these labs. You will need to give a urine specimen. These tests should be completed 30 minutes before your visit. You can schedule your lab appointment at [phone]. Please continue to take your medications as prescribed. We look forward to seeing you again. Gagandeep Hinojosa MD [employer] documented in this encounter Plan of Treatment Not on filedocumented as of this encounter Visit Diagnoses Diagnosis Type 2 diabetes mellitus, uncontrolled - Primary Type II or unspecified type diabetes jasen litus without mention of complication, uncontrolled documented in this encounter Care Teams Cloth Printing Inspector Relationship Specialty Start Date End Date Gagandeep Hinojosa MD PCP - General 05/17/12 14[address] [facility] [place] [address] Vane Zarate Psychiatrist Psychiatry 03/22/12 documented as of this encounter
--- OUTSIDE RECORDS SUMMARY | 2022-02-12 12:10 | XMS_ITS | Encounter Summary ---
:1970 Author Organization [employer] Address [address] [place] [address] Care Team Providers Name Role Phone Gagandeep Hinojosa MD Primary Care Provider Reason for Visit Reason Comments Diabetes Encounter Details Date Type Department Care Team Description 12/09/2014 Office Visit Gagandeep Storm Type II or unspecified type diabetes mellitus without mention of complication, uncontrolled (Primary Dx); Romario Rubio MD ASHD (arteriosclerotic heart disease); [address] 1415 [facility] intermediate designer current use of ins ulin; [place] [address] [address] Unspecified essential hypertension; [phone] [place] VIGIL [address] Other and unspecified hyperlipidemia; [phone] Tobacco use dis order (Work) Social History Tobacco Use Types Packs/Day Years Used Date Smoking Tobacco: Never Assessed Sex Assigned at Date Recorded Not on file documented as of this encounter Last Filed Vital Signs Vital Sign Reading Time Taken Comments Blood Pressure 118/70 12/09/2014 2:23 PM CDT Pulse 66 12/09/2014 2:23 PM CDT Temperature - - Respiratory Rate - - Oxygen Saturation - - Inhaled Oxygen Concentration - - Weight 106.1 kg (234 lb) 12/09/2014 2:23 PM CDT Height - - Body Mass Index 33.58 02/14/2014 12:57 PM CDT documented in this encounter Progress Notes Gagandeep Hinojosa MD - 12/09/2014 11:36 PM CDT SUBJECTIVE: 44 y.o. male presents today for diabetes check. Continues to smoke. Financially he has difficulty obtaining his medications. Aspirin:Continues to take aspirin daily. No stomach pains, no black or tarry stools. Blood pressure:Patient has not been checking blood pressures at home., No blurry vision., No double vision. and No chest pain. Patient did not bring in outside blood pressure records. Blood sugars: Patient has been checking blood sugars. Blood sugars have not been at goal. No symptomatic highs or lows. Patient has only been able to use half of his usual insulin doses Patient Patientdid not bring in outside records.. Cholesterol: Lipids have not been at goal. No muscle aches or pains. Tobacco: Patient reports that he has been smoking Cigarettes. He has been smoking about 0.00 packs per day for the past 25 years. He quit smokeless tobacco use about 2 years ago. Eye exam: Patient is up-to-date with eye exam. Patient does not have a history of retinopathy. No blurry or double vision Foot exam: Patient does not have a history of neuropathy. No sores, numbness, or tingling. Kidney health: does not have a history of nephropathy. No burning or pain with urination, no polyuria or polydipsia. Review of systems: See Above Medications: Reviewed and updated Current Outpatient Prescriptions on File Prior to Visit Medication Sig Dispense Refill ??? aspirin 81 mg chewable tablet TAKE 1 TABLET BY MOUTH DAILY . 100 tablet 1 ??? atorvastatin (LIPITOR) 80 mg tablet TAKE 1 TABLET BY MOUTH DAILY 90 tablet 1 ??? divalproex (DEPAKOTE) 500 mg EC tablet Take 2,000 mg by mouth DAILY MORNING LAB. Do not cut/crush/chew. Take with food. ??? [DISCONTINUED] insulin (BD INSULIN PEN NEEDLE UF SHORT) 31 X 5/16 Ndle Inject 1 Needle subcutaneously. 250.02 Use new needle each injection, 4 daily 200 each prn ??? [DISCONTINUED] insulin NPH (NOVOLIN N) 100 unit/mL Susp Inject 80 Units subcutaneously 2 times daily (before meals). BREAKFAST AND DINNER 40 mL 5 ??? [DISCONTINUED] insulin regular (NOVOLIN R) 100 unit/mL injection Inject 76 Units subcutaneously 2 times daily (before meals). BREAKFAST AND DINNER 40 mL 5 ??? [DISCONTINUED] Insulin Syringe-Needle U-100 (ULTRA-THIN II, SHORT, INS SYR) 1 mL 30 x 5/16 SyrgInject 1 each subcutaneously 4 times daily. 500 each 3 ??? [DISCONTINUED] lisinopril (PRINIVIL, ZESTRIL) 5 mg tablet Take 1 tablet by mouth daily (every 24hours). 90 tablet 3 ??? [DISCONTINUED] metFORMIN (GLUCOPHAGE) 500 mg tablet Take 1 tablet by mouth 2 times daily (with meals). 180 tablet 0 ??? [DISCONTINUED] metoprolol succinate (TOPROL-XL) 50 mg 24 hr tablet Take 1 tablet by mouth daily (every 24 hours). 90 tablet 1 ??? omega-3 fatty acids-fish oil 340-1,000 mg capsule Take 2 capsules by mouth 2 times daily. Indications: HYPERTRIGLYCERIDEMIA 360 capsule 3 ??? risperiDONE (RISPERDAL) 4 mg tablet Take 4 mg by mouth daily (every 24 hours). ??? tadalafil (CIALIS) 20 mg tablet Take 1 tablet by mouth as needed for Erectile Dysfunction. Take 30 minutes prior to sexual activity 10 tablet 0 No current facility-administered medications on file prior to visit. Adverse Drug Reactions: Allergies Allergen Reactions ??? Abilify [Aripiprazole] permanent shaking in left arm ??? Haloperidol Shock ??? Nitroglycerin nausea ??? Thiothixene Other (See Comments) Muscle spasm OBJECTIVE: Vital Signs: BP 118/70 mmHg Pulse 66 Wt 234 lb (106.142 kg) General: Alert, [...] limits Labs: Lab Results Component Value Date A1C 10.4* 07/13/2013 MICROALBUR 42.5 08/22/2014 CREA 0.8 05/21/2014 Lab Results Component Value Date CHOLESTEROL 152 05/21/2014 HDL 28* 05/21/2014 LDL 51 05/21/2014 TRIGLYCERIDE 367* 05/21/2014 Lab Results Component Value Date ALT 20 03/07/2013 AST 25 07/13/2013 HEMOGLOBIN A1CRM Date Value Ref Range Status 11/25/2010 10.0* 0.0-6.0 % Final HGB A1C Date Value Ref Range Status 07/13/2013 10.4* 4.0 - 5.6 % Final HEMOGLOBIN A1C RAPID Date Value Ref Range Status 12/09/2014 9.3* 4.0 - 5.6 % Final Comment: The Rapid A1c test is designed for monitoring patients with an established diagnosis of diabetes mellitus. The rapid method is not suitable to establish the intial diagnosis of diabetes melitus. HEMOGLOBIN A1C, POC Date Value Ref Range Status 07/06/2011 10.6* 6.0 % Lab Results Component Value Date/Time HEMOGLOBIN A1CRM 10.0* 11/25/2010 1618 HGB A1C 10.4* 07/13/2013 1039 HEMOGLOBIN A1C RAPID 9.3* 12/09/2014 1357 HEMOGLOBIN A1C, POC 10.6* 07/06/2011 1650 No results found for: GLUF Lab Results Component Value Date CL 95* 05/21/2014 ASSESSMENT: 1. Type 2 diabetes, uncontrolled 2. Hypertension, controlled 3. Hyperlipidemia, controlled Diagnosis (ICD9) and Associated Orders ICD-9-CM ICD-10-CM 1. Type II or unspecified type diabetes mellitus without mention of complication, uncontrolled (HCC)250.02 E11.65 insulin pen needles (INSULIN PEN NEEDLE UF SHORT) 31 X 5/16 SHORT Insulin Syringe-Needle U-100 (ULTRA-THIN II, SHORT, INS SYR) 1 mL 30 x 5/16 Syrg lisinopril (PRINIVIL, ZESTRIL) 5 mg tablet metFORMIN (GLUCOPHAGE) 500 mg tablet insulin pen needles (INSULIN PEN NEEDLE UF SHORT) 31 X 5/16 SHORT Insulin Syringe-Needle U-100 (ULTRA-THIN II, SHORT, INS SYR) 1 mL 30 x 5/16 Syrg lisinopril (PRINIVIL, ZESTRIL) 5 mg tablet metFORMIN (GLUCOPHAGE) 500 mg tablet insulin NPH (NOVOLIN N) 100 unit/mL Susp insulin regular (NOVOLIN R) 100 unit/mL injection Chronic 2. ASHD (arteriosclerotic heart disease) 414.00 I25.10 metoprolol succinate (TOPROL-XL) 50 mg 24 hr tablet metoprolol succinate (TOPROL-XL) 50 mg 24 hr tablet Chronic PLAN: 1. He needs to quit smoking. He needs to increase his current insulin use by about 10% to improve his A1c readings. The patient was discharged ambulatory and in stable condition. Diabetes measures: A1c Due: 3 months Foot Exam: 3 months Eye exam: Within the year Cholesterol: ,6 Electrolytes: ,6 UMAR: ,3 Aspirin: yes Tobacco: yes documented in this encounter Plan of Treatment Not on filedocumented as of this encounter Visit Diagnoses Diagnosis Type II or unspecified type diabetes jasen litus without mention of complication, uncontrolled - Primary ASHD (arteriosclerotic heart disease) (H RC) Coronary atherosclerosis of unspecified type of vessel, [place] or graft intermediate designer current use of insulin (HRC) Encounter for long-term (current) use of insulin Unspecified essential hypertension (HRC) Unspecified essential hypertension Other and unspecified hyperlipidemia (HR C) Other and unspecified hyperlipidemia Tobacco use disorder (HRC) Tobacco use disorder documented in this encounter Care Teams Loan Officer Assistant Relationship Specialty Start Date End Date Gagandeep Hinojosa MD PCP - General 05/17/12 [facility] [place] [address] Vane Zarate Psychiatrist Psychiatry 03/22/12 documented as of this encounter
--- OUTSIDE RECORDS SUMMARY | 2022-02-12 12:10 | XMS_ITS | Encounter Summary ---
:1970 Author Organization [facility] Address [address], [place] [address] Care Team Providers Name Role Phone Gagandeep Hinojosa MD Primary Care Provider Encounter Details Date Type Department Care Team Description 04/02/2015 Notes/Orders [facility] Gagandeep Hinojosa MD 1415 [facility] . [address] [place] [address] [place] [address] [phone] (Wo rk) Social History Tobacco Use Types Packs/Day Years Used Date Smoking Tobacco: Never Assessed Sex Assigned at Date Recorded Not on file documented as of this encounter Plan of Treatment Not on filedocumented as of this encounter Visit Diagnoses Not on filedocumented in this encounter Care Teams Living Advisor Relationship Specialty Start Date End Date Gagandeep Hinojosa MD PCP - General 05/17/12 1415 [facility] [place] [address] Vane Zarate Psychiatrsamantha Psychiatry 03/22/12 documented as of this encounter
--- OUTSIDE RECORDS SUMMARY | 2022-02-12 12:10 | XMS_ITS | Encounter Summary ---
:1970 Author Organization [facility] Address [address] [place] [address] Care Team Providers Name Role Phone Gagandeep Hinojosa MD Primary Care Provider Encounter Details Date Type Department Care Team Description 12/17/2014 Notes/Orders [facility] Gagandeep Hinojosa MD [address] [facility] . [address] [place] [address] [place] [address] [phone] (Wo rk) Social History Tobacco Use Types Packs/Day Years Used Date Smoking Tobacco: Never Assessed Sex Assigned at Date Recorded Not on file documented as of this encounter Plan of Treatment Not on filedocumented as of this encounter Visit Diagnoses Not on filedocumented in this encounter Care Teams Singeing Torch Operator Relationship Specialty Start Date End Date Gagandeep Hinojosa MD PCP - General 05/17/12 1415 [facility] [place] [address] Vane Zarate Psychiatrsamantha Psychiatry 03/22/12 documented as of this encounter
--- OUTSIDE RECORDS SUMMARY | 2022-02-12 12:10 | XMS_ITS | Encounter Summary ---
:1970 Author Organization [facility] Address [address] [place] [address] Care Team Providers Name Role Phone Gagandeep Hinojosa MD Primary Care Provider Reason for Visit Reason Comments Refill Encounter Details Date Type Department Care Team Description 01/22/2015 Refill [facility] Vanessa Ram PA-C Refill [address] [place] [address] [place], [place] [address] (Wo rk) Social History Tobacco Use Types Packs/Day Years Used Date Smoking Tobacco: Never Assessed Sex Assigned at Date Recorded Not on file documented as of this encounter Nursing Notes Yadira Mane, RN - 01/22/2015 2:39 PM CDT Pt given a 90 supply in November with 1 refill. Spoke with pharmacy. Does have a refill available. Will not refill at this time. Yadira Mane, RN - 01/22/2015 2:24 PM CDT LV- 02/14/14 [facility]- none Will refill x 1 per standing orders. documented in this encounter Plan of Treatment Not on filedocumented as of this encounter Visit Diagnoses Not on filedocumented in this encounter Care Teams Adjuster Arbitrator Relationship Specialty Start Date End Date Gagandeep Hinojosa MD PCP - General 05/17/12 1415 [facility] [place] [address] Vane Zarate Psychiatrist Psychiatry 03/22/12 documented as of this encounter
--- OUTSIDE RECORDS SUMMARY | 2022-02-12 12:10 | XMS_ITS | Encounter Summary ---
:1970 Author Organization [employer] Address [address] [place] [address] Care Team Providers Name Role Phone Gagandeep Hinojosa MD Primary Care Provider Reason for Visit Reason Comments Diabetes Encounter Details Date Type Department Care Team Description 03/27/2015 Office Visit Gagandeep Storm Type 2 d iabetes mellitus, uncontrolled (Primary Dx); Romario Rubio MD Encounter for immunization; [address] 1415 [facility] Microalbuminuria; [place] [address] [address] [facility] current use of insulin; [phone] [place] [address] Long-term insulin use in type 2 diabetes ; [phone] Essential hyper tension; (Work) Hyperlipidemia; Tobacco u se disorder; Non morbid obes ity due to excess calories Social History Tobacco Use Types Packs/Day Years Used Date Smoking Tobacco: Never Assessed Sex Assigned at Date Recorded Not on file documented as of this encounter Last Filed Vital Signs Vital Sign Reading Time Taken Comments Blood Pressure 132/86 03/27/2015 2:05 PM MOLDING ROOM SUPERVISOR Pulse 72 03/27/2015 2:05 PM MOLDING ROOM SUPERVISOR Temperature - - Respiratory Rate - - Oxygen Saturation - - Inhaled Oxygen Concentration - - Weight 104.3 kg (230 lb) 03/27/2015 2:05 PM MOLDING ROOM SUPERVISOR Height - - Body Mass Index 33 02/14/2014 12:57 PM CDT documented in this encounter Progress Notes Gagandeep Hinojosa MD - 03/27/2015 8:04 PM CST SUBJECTIVE: 45 y.o. male presents today for diabetes check. [...] 2 years ago. Eye exam: Patient is not [...] not cut/crush/chew. Take with food. ??? insulin NPH (NOVOLIN N) 100 unit/mL Susp Inject 80 Units subcutaneously 2 times daily (before meals). BREAKFAST AND DINNER 40 mL 2 ??? insulin pen needles (INSULIN PEN NEEDLE UF SHORT) 31 X 5/16 SHORT Use 2-4 times per day 200 each prn ??? insulin pen needles (INSULIN PEN NEEDLE UF SHORT) 31 X 5/16 SHORT use witheach dose 200 each prn ??? insulin regular (NOVOLIN R) 100 unit/mL injection Inject 76 Units subcutaneously 2 times daily (before meals). BREAKFAST AND DINNER 40 mL 2 ??? Insulin Syringe-Needle U-100 (ULTRA-THIN II, SHORT, INS SYR) 1 mL 30 x 5/16 Syrg Inject 1 each subcutaneously 4 times daily. 500 each 3 ??? Insulin Syringe-Needle U-100 (ULTRA-THIN II, SHORT, INS SYR) 1 mL 30 x 5/16 Syrg Inject 1 each subcutaneously 4 times daily. 500 each 3 ??? lisinopril (PRINIVIL, ZESTRIL) 5 mg tablet Take 1 tablet by mouth daily (every 24 hours). 90 tablet 3 ??? lisinopril (PRINIVIL, ZESTRIL) 5 mg tablet Take 1 tablet by mouth daily (every 24 hours). 90 tablet 3 ??? metFORMIN (GLUCOPHAGE) 500 mg tablet Take 1 tablet by mouth 2 times daily (with meals). 180 tablet 0 ??? [DISCONTINUED] metFORMIN (GLUCOPHAGE) 500 mg tablet Take 1 tablet by mouth 2 times daily (with meals). 180 tablet 0 ??? metoprolol succinate (TOPROL-XL) 50 mg 24 hr tablet Take 1 tablet by mouth daily (every 24 hours). 90 tablet 1 ??? [DISCONTINUED] metoprolol succinate (TOPROL-XL) 50 mg [...] Comments) Muscle spasm OBJECTIVE: Vital Signs: BP 132/86 mmHg Pulse 72 Wt 230 lb (104.327 kg) General: Alert, Oriented, NAD Head: Normocephalic. [...] Monofilament exam of the foot is abnormal: Decreased accuracy of sensation in his left foot more so than right Labs: Lab Results Component Value Date A1C 10.4* 07/13/2013 MICROALBUR 26.1 03/27/2015 CREA 0.60* 03/27/2015 Lab Results Component Value Date CHOLESTEROL 148 03/27/2015 HDL 31* 03/27/2015 LDL 59 03/27/2015 TRIGLYCERIDE 292* 03/27/2015 Lab Results Component Value Date ALT 20 [...] GLUF Lab Results Component Value Date CL 98 03/27/2015 ASSESSMENT: 1. Type 2 diabetes, uncontrolled 2. Hypertension, controlled 3. Hyperlipidemia, uncontrolled Diagnosis and Associated Orders ICD-10-CM ICD-9-CM 1. Type II or unspecified type diabetes mellitus without mention of complication, uncontrolled ([facility])E11.65 250.02 Fluarix Influenza QIV (36+ mos) OPTOMETRY CONSULT ADULT/PEDS (AMB) Hemoglobin A1C Glycosylated Chronic 2. Encounter for immunization Z23 V03.89 Fluarix Influenza QIV (36+ mos) PLAN: 1. He has been without funds to pay for his insulin, over the past 2 months. He is now employed, andhopefully will be able to afford his medications. He makes reference to being motivated to quitting smoking. The patient was discharged ambulatory and in stable condition. Diabetes measures: A1c Due: 3 months Foot Exam: 3 months Eye exam: 3 months Cholesterol: 3 months Electrolytes: 3 months UMAR: 3 months Aspirin: yes Tobacco: yes ING ROOM SUPERVISOR documented in this encounter Plan of Treatment Not on filedocumented as of this encounter Visit Diagnoses Diagnosis Type 2 diabetes mellitus, uncontrolled - Primary Type II or unspecified type diabetes jasen litus without mention of complication, uncontrolled Encounter for immunization Need for other specified prophylactic va ccination against single bacterial disease Microalbuminuria Proteinuria intermediate manager current use of insulin (HRC) Encounter for long-term (current) use of insulin Long-term insulin use in type 2 diabetes (HRC) Type II or unspecified type diabetes jasen litus without mention of complication, not stated as uncontrolled Essential hypertension (HRC) Unspecified essential hypertension Hyperlipidemia (HRC) Other and unspecified hyperlipidemia Tobacco use disorder (HRC) Tobacco use disorder Non morbid obesity due to excess calorie s (HRC) documented in this encounter Care Teams Biostatistics Professor Relationship Specialty Start Date End Date Gagandeep Hinojosa MD PCP - General 05/17/12 1415 [facility] [place] [address] Vane Zarate Psychiatrist Psychiatry 03/22/12 documented as of this encounter
--- OUTSIDE RECORDS SUMMARY | 2022-02-12 12:10 | XMS_ITS | Encounter Summary ---
:1970 Author Organization [facility] Address [address], [place] [address] Care Team Providers Name Role Phone Gagandeep Hinojosa MD Primary Care Provider Encounter Details Date Type Department Care Team Description 02/18/2015 Notes/Orders [place] [facility] [place] Gagandeep Hinojosa MD 1415 [facility] . [address] [place] [address] [place] [address] [phone] (Wo rk) Social History Tobacco Use Types Packs/Day Years Used Date Smoking Tobacco: Never Assessed Sex Assigned at Date Recorded Not on file documented as of this encounter Plan of Treatment Not on filedocumented as of this encounter Visit Diagnoses Not on filedocumented in this encounter Care Teams Sewer And Drain Technician Relationship Specialty Start Date End Date Gagandeep Hinojosa MD PCP - General 05/17/12 1415 [facility] [place] [address] Vane Zarate Psychiatrsamantha Psychiatry 03/22/12 documented as of this encounter
--- OUTSIDE RECORDS SUMMARY | 2022-02-12 12:10 | XMS_ITS | Encounter Summary ---
:1970 Author Organization [facility] Address [address] [place] [address] Care Team Providers Name Role Phone Gagandeep Hinojosa MD Primary Care Provider Encounter Details Date Type Department Care Team Description 12/09/2014 Lab Visit [facility] Type II or unspecified type 1415 [facility] . diabetes mellitus without [place] [address] mention of complication, uncontrolled Social History Tobacco Use Types Packs/Day Years Used Date Smoking Tobacco: Never Assessed Sex Assigned at Date Recorded Not on file documented as of this encounter Plan of Treatment Not on filedocumented as of this encounter Procedures Procedure Name Priority Date/Time Associated Diagnosis Comme nts EXTRA SERUM Routine 12/09/2014 1:57 PM Results f or this SEPARATOR TUBE CDT procedure are in (YELLOW) the results section. HEMOGLOBIN A1C, Routine 12/09/2014 1:57 PM Type II or Result s for this RAPID CDT unspecified type procedure a re in diabetes mellitus the result s without mention of section. complication, uncontrolled (HRC) documented in this encounter Results EXTRA SERUM SEPARATOR TUBE (YELLOW) (12/09/2014 1:57 PM CDT) P athologist Signature Extra SST Top Drawn HP CONVERSION Drawn Specimen Anatomical Collection Method Collection Time Receive d Time (Source) Location / / Volume Laterality 12/09/2014 1:57 PM 5 1:57 CDT PM CDT Narrative HP CONVERSION - 12/09/2014 1:49 PM CDT Performed at [facility], 1415 [facility], [place] [address] Gagandeep Hinojosa MD LAB_1 Performing Organization Address City/[facility] Phon e Number HP CONVERSION (ABNORMAL) HEMOGLOBIN A1C, RAPID (12/09/2014 1:57 PM CDT) Analysis Performed At [facility] Time Signature Hemoglobin A1C 9.3 (H) 4.0 - 5.6 HP CONVERSION Rapid % Comment: The Rapid A1c test is designed for monit oring patients with an established diagnosis of diabetes jasen litus. ??The rapid method is not suitable to establish the intial diagnosis of diabetes melitus. Specimen Anatomical Collection Method Collection Time Receive d Time (Source) Location / / Volume Laterality 12/09/2014 1:57 PM 5 1:57 CDT PM CDT Narrative HP CONVERSION - 12/09/2014 2:11 PM CDT Performed at [facility], [address] [place] [address] Gagandeep Hinojosa MD LAB_1 Performing Organization Address [facility] Phon e Number HP CONVERSION documented in this encounter Visit Diagnoses Diagnosis Type II or unspecified type diabetes jasen litus without mention of complication, uncontrolled documented in this encounter Care Teams Aboriginal [employer] Liaison Officer Relationship Specialty Start Date End Date Gagandeep Hinojosa MD PCP - General 05/17/[address] [place] [address] Vane Zarate Psychiatrist Psychiatry 03/22/12 documented as of this encounter
--- OUTSIDE RECORDS SUMMARY | 2022-02-12 12:10 | XMS_ITS | Encounter Summary ---
:1970 Author Organization Pending sale to [facility] Address [address], [place] [address] Care Team Providers Name Role Phone Gagandeep Hinojosa MD Primary Care Provider Encounter Details Date Type Department Care Team Description 11/12/2014 Notes/Orders [place] [facility] Gagandeep Hinojosa MD 1415 [facility] . [address] [place] [address] [place] [address] [phone] (Wo rk) Social History Tobacco Use Types Packs/Day Years Used Date Smoking Tobacco: Never Assessed Sex Assigned at Date Recorded Not on file documented as of this encounter Plan of Treatment Not on filedocumented as of this encounter Visit Diagnoses Not on filedocumented in this encounter Care Teams Sap Plant Maintenance Consultant Relationship Specialty Start Date End Date Gagandeep Hinojosa MD PCP - General 05/17/12 1415 [facility] [place] [address] Vane Zarate Psychiatrsamantha Psychiatry 03/22/12 documented as of this encounter
--- OUTSIDE RECORDS SUMMARY | 2022-02-12 12:10 | XMS_ITS | Encounter Summary ---
:1970 [facility] Address [address] [place] [address] Care Team Providers Name Role Phone Gagandeep Hinojosa MD Primary Care Provider Encounter Details Date Type Department Care Team Description 03/27/2015 Lab Visit [facility] Type 2 diabetes mellitus, [address] [place] [address] Social History Tobacco Use Types Packs/Day Years Used Date Smoking Tobacco: Never Assessed Sex Assigned at Date Recorded Not on file documented as of this encounter Plan of Treatment Not on filedocumented as of this encounter Procedures Procedure Name Priority Date/Time Associated Diagnosis Comme nts HGB A1C Routine 03/27/2015 2:34 PM Type 2 diabetes Resul ts for this COPIER TECHNICIAN mellitus, uncontrolled proce dure are in ([facility]) the results section. documented in this encounter Results (ABNORMAL) Hgb A1c (03/27/2015 2:34 PM COPIER TECHNICIAN) athologist Signature HGB A1C 10.9 (H) 4.0 - 5.6 % HP CONVERSION Specimen Anatomical Collection Method Collection Time Receive d Time (Source) Location / / Volume Laterality 03/27/2015 2:34 PM 5 7:20 COPIER TECHNICIAN PM COPIER TECHNICIAN Narrative HP CONVERSION - 03/28/2015 10:19 AM COPIER TECHNICIAN Performed at [place] [address] [place] [address] CLIA number [id number] Gagandeep Hinojosa MD LAB_1 Performing Organization Address City/State/ZIP Code Phon e Number HP CONVERSION documented in this encounter Visit Diagnoses Diagnosis Type 2 diabetes mellitus, uncontrolled Type II or unspecified type diabetes jasen litus without mention of complication, uncontrolled documented in this encounter Care Teams Record Press Supervisor Relationship Specialty Start Date End Date Gagandeep Hinojosa MD PCP - General 05/17/12 1415 [facility] [place] [address] Vane Zarate Psychiatrist Psychiatry 03/22/12 documented as of this encounter
--- OUTSIDE RECORDS SUMMARY | 2022-02-12 12:10 | XMS_ITS | Encounter Summary ---
:1970 Author [facility] Address [address], [place] [address] Care Team Providers Name Role Phone Gagandeep Hinojosa MD Primary Care Provider Encounter Details Date Type Department Care Team Description 06/10/2015 Notes/Orders [facility] Gagandeep Hinojosa MD 1415 [facility] . 1415 [facility] [address] [place] [address] [phone] (Wo rk) Social History Tobacco Use Types Packs/Day Years Used Date Smoking Tobacco: Never Assessed Sex Assigned at Date Recorded Not on file documented as of this encounter Miscellaneous Notes Letter - Gagandeep Hinojosa MD - 06/10/2015 12:00 AM CST 06/10/2015 Timur Krishnamurthy [address] [place] [address] : 1970 Dear Timur: I am contacting you with a reminder that it is time for your diabetes visit , please call [phone] to schedule your visit due in June. To prepare for this visit, it is important that you have yourlabs drawn prior to your appointment so the results are available for review at your visit. You do have to fast for 10 hours. However, you may drink water, black coffee or tea. You will need to give a urine specimen. These tests should be completed 30 minutes before your visit. You can schedule your lab appointment at [phone]. Please continue to take your medications as prescribed. We look forward to seeing you again. Gagandeep Hinojosa MD GRINDER documented in this encounter Plan of Treatment Not on filedocumented as of this encounter Visit Diagnoses Not on filedocumented in this encounter Care Teams Learning Consultant Relationship Specialty Start Date End Date Gagandeep Hinojosa MD PCP - General 05/17/[address] [place], [place] [address] [address] Vane Zarate Psychiatrist Psychiatry 03/22/12 documented as of this encounter
--- OUTSIDE RECORDS SUMMARY | 2022-02-12 12:10 | XMS_ITS | Encounter Summary ---
:1970 Author Organization [employer] Address [address] [place] [address] Care Team Providers Name Role Phone Gagandeep Michaud MD Primary Care Provider Reason for Visit Reason Comments Refill Encounter Details Date Type Department Care Team Description 03/29/2015 [facility]aud [facility] 1415 [facility] [place] [address] [place] [address] [phone] (Wo rk) Social History Tobacco Use Types Packs/Day Years Used Date Smoking Tobacco: Never Assessed Sex Assigned at Date Recorded Not on file documented as of this encounter Nursing Notes Jackie Frederick CMA - 03/31/2015 8:38 AM CST Requested prescription was last renewed on 12/09/14 and sent to [facility] pharmacy with year supply. Requested Prescriptions Refused Prescriptions Disp Refills ??? lisinopril (PRINIVIL, ZESTRIL) 5 mg tablet [Pharmacy Med Name: LISINOPRIL 5MG TABLETS] 90 tablet3 Sig: TAKE 1 TABLET BY MOUTH EVERY DAY Refused By: JACKIE FREDERICK V Reason for Refusal: REQUEST ALREADY RESPONDED TO BY OTHER MEANS (E.G. PHONE OR FAX) CHECKER Shani Blackman - 03/31/2015 8:38 AM CST lisinopril (PRINIVIL, ZESTRIL) 5 mg tablet [Pharmacy Med Name: LISINOPRIL 5MG TABLETS] - MEDICATION STARTED: 12/11/2010 - LAST REFILLED ON: 12/09/2014, QTY: 90, Refills: 3, Sig: take 1 tablet by mouth daily (every 24 hours). (changed but equivalent) - WARNING: The patient should have outstanding refills for this medication until 09/05/2015. - REFILL: 12 months (if warnings resolved) - RATIONALE: This refill should last until the patient is due for an office visit check, Cr check and K check. - LAST QUALIFYING VISIT WITH GAGANDEEP MICHAUD: 03/27/2015 - NEXT SCHEDULED VISIT: None - SBP: 132.0mm Hg on 03/27/2015 - DBP: 86.0mm Hg on 03/27/2015 - Cr: 0.6mg/dL on 03/27/2015 - K: 5.0mEq/L on 03/27/2015 Powered by [employer], Reference: [id number], 03/29/2015 10:43:13 AM Minerva GRANGER ([id number]) CHECKER documented in this encounter Plan of Treatment Not on filedocumented as of this encounter Visit Diagnoses Not on filedocumented in this encounter Care Teams Analytics Manager Relationship Specialty Start Date End Date Gagandeep Michaud MD PCP - General 05/17/12 [facility]5 [facility] [place] [address] Vane Zarate Psychiatrist Psychiatry 03/22/12 documented as of this encounter
--- OUTSIDE RECORDS SUMMARY | 2022-02-12 12:11 | XMS_ITS | Encounter Summary ---
:1970 Author Organization [employer] Address [address] [place] [address] Care Team Providers Name Role Phone Gagandeep Hinojosa MD Primary Care Provider Encounter Details Date Type Department Care Team Description 07/13/2013 Lab Visit [facility] Type II or unspecified type diabetes mellitus without mention of complication, uncontrolled; [address] Coronary atherosclerosis of unspecified type of vessel, [place] or graft [place] [address] Social History Tobacco Use Types Packs/Day Years Used Date Smoking Tobacco: Never Assessed Sex Assigned at Date Recorded Not on file documented as of this encounter Plan of Treatment Not on filedocumented as of this encounter Procedures Procedure Name Priority Date/Time Associated Diagnosis Comme nts ALBUMIN/CREAT Routine 07/13/2013 10:45 Type II or unspecified Results for this RATIO AM CDT type diabetes mellitus proce dure are in without mention of the resul ts complication, section. uncontrolled (HRC) LIPID PANEL AND Routine 07/13/2013 10:39 Type II or unspecifie d Results for this DIRECT LDL(IF AM CDT type diabetes mellitus proc edure are in NEEDED) without mention of the resul ts complication, section. uncontrolled (HR C) Coronary atherosclerosis of unspecified type of vessel, [place] or graft (HR) LDL CHOLESTEROL, Routine 07/13/2013 10:39 Results for this DIRECT MEASURED AM CDT procedure ar e in the results section. HGB A1C Routine 07/13/2013 10:39 Type II or unspecified R esults for this AM CDT type diabetes mellitus proce dure are in without mention of the resul ts complication, section. uncontrolled (HRC) AST Routine 07/13/2013 10:39 Type II or unspecified R esults for this AM CDT type diabetes mellitus proce dure are in without mention of the resul ts complication, section. uncontrolled (HR C) Coronary atherosclerosis of unspecified type of vessel, [place] or graft (HRC) documented in this encounter Results (ABNORMAL) Microalb/Creat Ratio (07/13/2013 10:45 AM CDT) Patholo gist Method Time Signature Microalbumin 232.7 mg/L HP CONVERSION Urine U Creat Random 200 mg/dL HP CONVERSION Microalbumin/Cre 116.4 (H) 0.0 - HP CONVERSION atinine Ratio 30.0 Specimen Anatomical Collection Method Collection Time Receive d Time (Source) Location / / Volume Laterality 07/13/2013 10:45 07/13/2013 4:08 AM CDT PM CDT Gagandeep Hinojosa MD LAB_1 Performing Organization Address [facility] Phon e Number HP CONVERSION LDL Cholesterol, Direct Measured (07/13/2013 10:39 AM CDT) athologist Signature LDL Direct 123 0 - 130 HP CONVERSION mg/dL Specimen Anatomical Collection Method Collection Time Receive d Time (Source) Location / / Volume Laterality 07/13/2013 10:39 07/13/2013 2:48 AM CDT PM CDT Narrative HP CONVERSION - 07/13/2013 6:53 PM CDT Performed at [facility], [address] [place] [address] Gagandeep Hinojosa MD LAB_1 Performing Organization Address City/[facility] [address]/[facility] Code Phon e Number HP CONVERSION (ABNORMAL) Hgb A1c (07/13/2013 10:39 AM CDT) athologist Signature HGB A1C 10.4 (H) 4.0 - 5.6 % HP CONVERSION Specimen Anatomical Collection Method Collection Time Receive d Time (Source) Location / / Volume Laterality 07/13/2013 10:39 07/13/2013 4:10 AM CDT PM CDT Gagandeep Hinojosa MD LAB_1 Performing Organization Address City/[facility] [address]/[facility] Phon e Number HP CONVERSION (ABNORMAL) Lipid Panel and Direct LDL(If Needed) (07/13/2013 10:39 AM CDT) [facility] localbacon Method Time Signature Cholesterol 197 0 - 200 HP CONVERSION mg/dL Triglycerides 423 (H) 0 - 149 HP CONVERSION mg/dL HDL Cholesterol 30 (L) >39 mg/dL HP CONVERSION Cholesterol/HDL 6.6 HP CONVERSION Ratio Screen Length Of Fast 12.0 HP CONVERSION Specimen Anatomical Collection Method Collection Time Receive d Time (Source) Location / / Volume Laterality 07/13/2013 10:39 07/13/2013 2:48 AM CDT PM CDT Narrative HP CONVERSION - 07/13/2013 5:00 PM CDT Performed at [facility], [address] [place] [address] Gagandeep Hinojosa MD LAB_1 Performing Organization Address City/[facility] [address]/[facility] Phon e Number HP CONVERSION AST (07/13/2013 10:39 AM CDT) [facility] [employer]acon Method Time Signature Aspartate 25 0 - 45 HP CONVERSION Aminotransferase U/L Specimen Anatomical Collection Method Collection Time Receive d Time (Source) Location / / Volume Laterality 07/13/2013 10:39 07/13/2013 2:48 AM CDT PM CDT Narrative HP CONVERSION - 07/13/2013 5:00 PM CDT Performed at [facility], [address] [place] [address] Gagandeep Hinojosa MD LAB_1 Performing Organization Address City/[facility] [address]/[facility] Phon e Number HP CONVERSION documented in this encounter Visit Diagnoses Diagnosis Type II or unspecified type diabetes jasen litus without mention of complication, uncontrolled Coronary atherosclerosis of unspecified type of vessel, [place] or graft (HRC) Coronary atherosclerosis of unspecified type of vessel, [place] or graft documented in this encounter Care Teams Home Fire Alarm Installer Relationship Specialty Start Date End Date Gagandeep Hinojosa MD PCP - General 05/17/12 [facility] [place] [address] Vane Zarate Psychiatrist Psychiatry 03/22/12 documented as of this encounter
--- OUTSIDE RECORDS SUMMARY | 2022-02-12 12:11 | XMS_ITS | Encounter Summary ---
:1970 Author Organization [employer] Address [address] [place] [address] Care Team Providers Name Role Phone Gagandeep Michaud MD Primary Care Provider Reason for Visit Reason Comments Refill Encounter Details Date Type Department Care Team Description 07/04/2014 Refill [facility] Gagandeep Michaud MD Refill 1415 [facility] . [address] [facility] [place] [address] [place] [address] [phone] (Wo rk) Social History Tobacco Use Types Packs/Day Years Used Date Smoking Tobacco: Never Assessed Sex Assigned at Date Recorded Not on file documented as of this encounter Nursing Notes User, Aguilakassy - 07/04/2014 3:31 PM CDT metFORMIN (GLUCOPHAGE) 500 mg tablet [Pharmacy Med Name: METFORMIN 500MG TABLETS] - WARNING: This medication may be for short term use. - REFILL: 3 months (if violations and warnings resolved) - VIOLATION: HBA1C is abnormal (11.0% is greater than 8.0%) - LAST QUALIFYING VISIT WITH GGAANDEEP MICHAUD: 05/21/2014 - NEXT SCHEDULED VISIT: None - MEDICATION STARTED: 01/16/2014 - LAST REFILLED ON: 01/16/2014, QTY: 180, Refills: 0, Sig: take 1 tablet by mouth 2 times daily (with meals). (changed but equivalent) - Cr: 0.8mg/dL on 05/21/2014 - HBA1C: 11.0% on 05/21/2014 Powered by [employer], Reference: [id number], 07/04/2014 2:47:54 PM CDT, Pool: MANUEL REFILL ([id number]) Alaina Garduno RN - 07/04/2014 3:31 PM CDT Renewed medication per medication refill protocol. Requested Prescriptions Signed Prescriptions Disp Refills ??? metFORMIN (GLUCOPHAGE) 500 mg tablet 180 tablet 0 Sig: Take 1 tablet by mouth 2 times daily (with meals). Authorizing Provider: GAGANDEEP MICHAUD Ordering User: ALAINA GARDUNO documented in this encounter Plan of Treatment Not on filedocumented as of this encounter Visit Diagnoses Not on filedocumented in this encounter Care Teams Slurry Control Operator Helper Relationship Specialty Start Date End Date Gagandeep Michaud MD PCP - General 05/17/[address] [place] [address] [place] [address] Vane Zarate Psychiatrist Psychiatry 03/22/12 documented as of this encounter
--- OUTSIDE RECORDS SUMMARY | 2022-02-12 12:11 | XMS_ITS | Encounter Summary ---
:1970 Author Organization [employer] Address [address] [place] [address] Care Team Providers Name Role Phone Gagandeep Hinojosa MD Primary Care Provider Reason for Visit Reason Comments Diabetes Encounter Details Date Type Department Care Team Description 07/20/2013 Office Visit Gagandeep Storm Type II or unspecified type diabetes mellitus without mention of complication, uncontrolled (Primary Dx); Romario Rubio MD Hyperlipidemia LDL goal < 70; [address] [place] [address] [facility] Onychomy cosis; [address] Ave Tobacco abuse; [place] [address] [place], [place] care home current use of ins ulin; [phone] Long-term insulin use in type 2 diabetes ; [phone] Unspecified ess ential hypertension; (Work) Other and unspecified hyperlipidemia; [phone] Tobacco use dis order; (Fax) Obesity, unspec ified Social History Tobacco Use Types Packs/Day Years Used Date Smoking Tobacco: Never Assessed Sex Assigned at Date Recorded Not on file documented as of this encounter Last Filed Vital Signs Vital Sign Reading Time Taken Comments Blood Pressure 132/82 07/20/2013 1:01 PM CDT Pulse 100 07/20/2013 1:01 PM CDT Temperature - - Respiratory Rate - - Oxygen Saturation - - Inhaled Oxygen Concentration - - Weight 108 kg (238 lb) 07/20/2013 1:01 PM CDT Height - - Body Mass Index 34.15 10/25/2012 6:00 PM CDT documented in this encounter Patient Instructions Patient InstructionsGagandeep Hinojosa MD - 07/21/2013 12:37 AM CDT [facility] [phone] My Diabetes at a Glance Aspirin Use Y/N A1C % Blood Pressure mm/Hg LDL Cholesterol mg/dL Tobacco Use Y/N Eye Exam Foot ExamUrine Microalbumin Most Recent Results Yes 10.4 132/82 123 Yes normal abnormal 232.7 Prior Results Yes 12.3 122/74 124 Yes normal abnormal 108 Your Goal 81 milligrams a day or as recommended Less than 8 Less than 140/90 Less than 100 Tobacco Free Normal Exam Normal Exam Less than 30 How often to check Take Daily 3 months Every clinic visit Yearly Never Use Yearly Exam Yearly Exam Yearly Exam (More frequent if results are abnormal) To meet your A1C goal of Less than 8%, aim for the following blood glucose goals: Before Meals: 90-160 mg/dL; 2 Hours After Meals: less than 180 mg/dL; Bed Time 90-160 mg/dL. Patient will titrate his insulin dose 2 units to achieve a blood sugar goal of less than 180 Goals of Treatment for Diabetes Treatment goals for diabetes are important to ensure proper care, reduce the risks of complications and improve the health. Below is a list of some of the major goals. Daily Aspirin: Taking one aspirin a day can help to reduce your risk of stroke and heart attack. Taking aspirin daily is especially important if you are over 40 years old, unless your doctor has told you not to take aspirin. Blood Glucose (Sugar): Checking your blood glucose regularly and having your A1C test every 3-6 months is important. How often you check your A1C depends on how well your Glucose levels are controlled. Blood Pressure: Keeping your Blood Pressure under control lowers your risk of heart attack, stroke and kidney disease. Most people should aim for a blood pressure less than 130/80. Cholesterol: Maintaining an ideal Cholesterol level is important to prevent as stroke and heart disease. If you have Diabetes, aim for a LDL (???Bad Cholesterol?? ) less than 100. If you have a historyof heart disease, aim for a LDL less than 70. Check your Cholesterol at least yearly. Tobacco: Smoking or using tobacco products greatly increases your risk of stroke, heart disease, kidney disease, amputation (removal of a body part, such as a toe, foot or leg) and other health problems. Do not smoke or use tobacco products. Eye Exam: Getting your eyes checked by an eye doctor at least yearly is important. Report any visionchanges to your doctor. Foot Exam: Getting a regular foot exam is important to check for early signs of nerve disease and numbness (neuropathy). Checking your feet daily can help to reduce your risk of severe sores (ulcerations) and amputations. Kidney Health: Testing the health of your kidneys at least yearly is important. A urine microalbumintest checks for small amounts of protein in the urine. Protein in the urine is a early sign of kidney disease. A normal value is less than 30. documented in this encounter Progress Notes Gagandeep Hinojosa MD - 07/21/2013 12:38 AM CDT SUBJECTIVE: 43 y.o. male presents today for diabetes check. Had some difficulty obtaining insulin 2 to insurance changes, but this has been reconciled. Has global onychomycosis of his toenails, with difficulty clipping them. No paronychia. Aspirin:Continues to take aspirin daily. No stomach [...] Patient Patient did not bring in outside records. His A1c is on record, and although improved from previous tests, remains above target Cholesterol: Lipids have been at goal. No muscle aches or pains. Tobacco: Patient reports that he has quit smoking. His smoking use included Cigarettes. He smoked 0.00 packs per day for 25 years. He quit smokeless tobacco use about 8 months ago. Eye exam: Patient is up-to-date with [...] MOUTH DAILY . 100 tablet 1 ??? carvedilol (COREG) 6.25 mg tablet TAKE 1 TABLET BY MOUTH TWICE DAILY WITH MEALS 60 tablet 3 ??? divalproex (DEPAKOTE) 500 mg EC tablet Take 2,000 mg by mouth DAILY MORNING LAB. Do not cut/crush/chew. Take with food. ??? insulin (BD INSULIN PEN NEEDLE UF SHORT) 31 X 5/16 Ndle Inject 1 Needle subcutaneously. 250.02Use new needle each injection, 4 daily 200 each prn ??? insulin NPH (NOVOLIN N) 100 unit/mL Susp Inject 80 Units subcutaneously 2 times daily (before meals). BREAKFAST AND DINNER 40 mL 5 ??? insulin regular (NOVOLIN R) 100 unit/mL injection Inject 76 Units subcutaneously 2 times daily (before meals). BREAKFAST AND DINNER 40 mL 5 ??? Insulin Syringe-Needle U-100 (ULTRA-THIN II, SHORT, INS SYR) 1 mL 30 x 5/16 Syrg Inject 1 each subcutaneously 4 times daily. 500 each 3 ??? lisinopril (PRINIVIL, ZESTRIL) 5 mg tablet Take 1 tablet by mouth daily (every 24 hours). 90 tablet 3 ??? omega-3 fatty acids-fish oil 340-1,000 mg capsule Take 2 capsules by mouth 2 times daily. Indications: HYPERTRIGLYCERIDEMIA 360 capsule 3 ??? risperiDONE (RISPERDAL) 4 mg tablet Take 4 mg by mouth daily (every 24 hours). ??? [DISCONTINUED] simvastatin (ZOCOR) 80 mg tablet TAKE 1 TABLET BY MOUTH EVERY NIGHT 90 tablet 2 No current facility-administered medications on file prior to visit. Adverse Drug Reactions: Allergies Allergen Reactions ??? Abilify (Aripiprazole) permanent shaking in left arm ??? Haloperidol Shock ??? Thiothixene Other (See Comments) Muscle spasm OBJECTIVE: Vital Signs: BP 132/82 Pulse 100 Wt 238 lb (107.956 kg) BMI 34.15 kg/m2 General: Alert, Oriented, NAD Head: Normocephalic. [...] Normal exam: no sores, no swelling, no edema, Exam of the foot is abnormal: Only in that he has global onychomycosis. and Monofilament exam of the feet is within normal limits Labs: Lab Results Component Value Date A1C 10.4* 07/13/2013 MICROALBUR 232.7 07/13/2013 CREA 0.8 03/07/2013 Lab Results Component Value Date CHOLESTEROL 197 07/13/2013 HDL 30* 07/13/2013 LDL 123 07/13/2013 TRIGLYCERIDE 423* 07/13/2013 Lab Results Component Value Date ALT 20 03/07/2013 AST 25 07/13/2013 HGB A1C Date Value Range Status 07/13/2013 10.4* 4.0 - 5.6 % Final Hemoglobin A1CRM Date Value Range Status 11/25/2010 10.0* 0.0-6.0 % Final Hemoglobin A1C, POC Date Value Range Status 07/06/2011 10.6* 6.0 % Final Lab Results Component Value Date/Time HGB A1C 10.4* 07/13/2013 1039 Hemoglobin A1CRM 10.0* 11/25/2010 1618 Hemoglobin A1C, POC 10.6* 07/06/2011 1650 No results found for this basename: GLUF Lab Results Component Value Date CL 99 03/07/2013 ASSESSMENT: 1. Type 2 diabetes, uncontrolled 2. Hypertension, controlled 3. Hyperlipidemia, uncontrolled Diagnosis (ICD9) and Associated Orders ICD-9-CM 1. Type II or unspecified type diabetes mellitus without mention of complication, uncontrolled (HCC)250.02 2. Hyperlipidemia LDL goal < 70 272.4 simvastatin (ZOCOR) 80 mg tablet Chronic 3. Onychomycosis 110.1 4. Tobacco abuse 305.1 PLAN: 1. onychomycosis. Toenail trimming service phone number given. Patient will adjust his insulin dose upwards 2 units at a time as needed to achieve a glucose consistently below 180 The patient was discharged ambulatory and in stable condition. Diabetes measures: A1c Due: 3 months Foot Exam: 3 months Eye exam: This year Cholesterol: 3 months Electrolytes: 6 months UMAR: 3 months Aspirin: yes Tobacco: yes. Advised to discontinue smoking. documented in this encounter Plan of Treatment Not on filedocumented as of this encounter Visit Diagnoses Diagnosis Type II or unspecified type diabetes jasen litus without mention of complication, uncontrolled - Primary Hyperlipidemia LDL goal < 70 (HRC) Other and unspecified hyperlipidemia Onychomycosis Dermatophytosis of nail Tobacco abuse (HRC) Tobacco use disorder care home current use of insulin (HRC) Encounter for long-term (current) use of insulin Long-term insulin use in type 2 diabetes (HRC) Type II or unspecified type diabetes jasen litus without mention of complication, not stated as uncontrolled Unspecified essential hypertension (HRC) Unspecified essential hypertension Other and unspecified hyperlipidemia (HR C) Other and unspecified hyperlipidemia Tobacco use disorder (HRC) Tobacco use disorder Obesity, unspecified (HRC) Obesity, unspecified documented in this encounter Care Teams Meteorology Professor Relationship Specialty Start Date End Date Gagandeep Hinojosa MD PCP - General 05/17/12 [facility] [facility] [place] [address] Vane Zarate Psychiatrist Psychiatry 03/22/12 documented as of this encounter
--- OUTSIDE RECORDS SUMMARY | 2022-02-12 12:11 | XMS_ITS | Encounter Summary ---
:1970 Author Organization [facility] Address [address] [place] [address] Care Team Providers Name Role Phone Gagandeep Hinojosa MD Primary Care Provider Reason for Visit Reason Comments Diabetes Encounter Details Date Type Department Care Team Description 11/16/2013 Notes/Orders [facility] Gagandeep Hinojosa MD 1415 [facility] . 14[address] [place] [address] [place] [address] [phone] (Wo rk) Social History Tobacco Use Types Packs/Day Years Used Date Smoking Tobacco: Never Assessed Sex Assigned at Date Recorded Not on file documented as of this encounter Plan of Treatment Not on filedocumented as of this encounter Visit Diagnoses Not on filedocumented in this encounter Care Teams Stock Fitter Relationship Specialty Start Date End Date Gagandeep Hinojosa MD PCP - General 05/17/12 [facility] [address] Vane Zarate Psychiatrist Psychiatry 03/22/12 documented as of this encounter
--- OUTSIDE RECORDS SUMMARY | 2022-02-12 12:11 | XMS_ITS | Encounter Summary ---
:1970 [facility] Address [address] [place] [address] Care Team Providers Name Role Phone Gagandeep Michaud MD Primary Care Provider Reason for Visit Reason Comments Refill Encounter Details Date Type Department Care Team Description 08/03/2013 Refill [facility]andeep [facility]aud MD [facility] 1415 [facility] [place] [place] [address] [place] [address] [phone] (Wo rk) Social History Tobacco Use Types Packs/Day Years Used Date Smoking Tobacco: Never Assessed Sex Assigned at Date Recorded Not on file documented as of this encounter Nursing Notes Marci Carrillo, RN - 08/05/2013 8:16 PM CDT Renewed medication per medication refill protocol. Requested Prescriptions Signed Prescriptions Disp Refills ??? carvedilol (COREG) 6.25 mg tablet 60 tablet 4 Sig: TAKE 1 TABLET BY MOUTH TWICE DAILY WITH MEALS Authorizing Provider: GAGANDEEP MICHAUD Ordering User: MARCI CARRILLO documented in this encounter Plan of Treatment Not on filedocumented as of this encounter Visit Diagnoses Not on filedocumented in this encounter Care Teams Ios Programmer Relationship Specialty Start Date End Date Gagandeep Michaud MD PCP - General 05/17/12 1415 [facility] [place] [address] Vane Zarate Psychiatrist Psychiatry 03/22/12 documented as of this encounter
--- OUTSIDE RECORDS SUMMARY | 2022-02-12 12:11 | XMS_ITS | Encounter Summary ---
:1970 Author Organization [employer] Address [address] [place] [address] Care Team Providers Name Role Phone Gagandeep Hinojosa MD Primary Care Provider Encounter Details Date Type Department Care Team Description 01/16/2014 Lab Visit [facility] Type II or unspecified type diabetes mellitus without mention of complication, uncontrolled; [address] Other and unspecified hyperl ipidemia [place] [address] Social History Tobacco Use Types Packs/Day Years Used Date Smoking Tobacco: Never Assessed Sex Assigned at Date Recorded Not on file documented as of this encounter Plan of Treatment Not on filedocumented as of this encounter Procedures Procedure Name Priority Date/Time Associated Diagnosis Comme nts ALBUMIN/CREAT RATIO Routine 01/16/2014 10:18 Type II or unspec ified Results for this AM CDT type diabetes mellitus proce dure are in without mention of the resul ts complication, section. uncontrolled (HRC) HEMOGLOBIN A1C, Routine 01/16/2014 10:14 Type II or unspecifie d Results for this RAPID AM CDT type diabetes mellitus proce dure are in without mention of the resul ts complication, section. uncontrolled (HRC) CREATININE / GFR Routine 01/16/2014 10:14 Other and unspecifie d Results for this AM CDT hyperlipidemia (HRC) procedu re are in the results section. ELECTROLYTE PANEL Routine 01/16/2014 10:14 Other and unspecifi ed Results for this AM CDT hyperlipidemia (HRC) procedu re are in the results section. documented in this encounter Results (ABNORMAL) Microalb/Creat Ratio (01/16/2014 10:18 AM CDT) [facility] gist Method Time Signature Microalbumin 120.8 mg/L HP CONVERSION Urine U Creat Random 102 mg/dL HP CONVERSION Microalbumin/Cre 118.4 (H) 0.0 - HP CONVERSION atinine Ratio 30.0 Specimen Anatomical Collection Method Collection Time Receive d Time (Source) Location / / Volume Laterality 01/16/2014 10:18 01/16/2014 AM CDT 12:42 PM CDT Gagandeep Hinojosa MD LAB_1 Performing Organization Address City/[facility] Phon e Number HP CONVERSION Creatinine / GFR (01/16/2014 10:14 AM CDT) athologist Signature Creatinine 0.8 0.4 - 1.3 HP CONVERSION Serum mg/dL Est GFR >60 >60 HP CONVERSION Am Est GFR Non-Afr >60 >60 HP CONVERSION Am Comment: Normal>60, moderate decrease 30 - 59, se lenora decrease 15 - 29, renal failure <15 mL/min/1.73 m2 NOTE: ??Choose the eGFR result above kaylee ropriate for the race of the patient. Specimen Anatomical Collection Method Collection Time Receive d Time (Source) Location / / Volume Laterality 01/16/2014 10:14 01/16/2014 AM CDT 11:49 AM CDT Narrative HP CONVERSION - 01/16/2014 12:32 [place] [address] Gagandeep Hinojosa MD LAB_1 Performing Organization Address [facility] Phon e Number HP CONVERSION (ABNORMAL) Electrolyte Panel (01/16/2014 10:14 AM CDT) athologist Signature Sodium 130 (L) 137 - 147 HP CONVERSION Potassium 4.6 3.5 - 5.2 HP CONVERSION Chloride 97 (L) 98 - 110 HP CONVERSION Bicarbonate 27 23 - 33 HP CONVERSION mmol/L Specimen Anatomical Collection Method Collection Time Receive d Time (Source) Location / / Volume Laterality 01/16/2014 10:14 01/16/2014 AM CDT 11:49 AM CDT Narrative HP CONVERSION - 01/16/2014 12:32 PM CDT Performed at [facility], [address] [place] [address] Gagandeep Hinojosa MD LAB_1 Performing Organization Address City/[facility]/ZIP [facility] Phon e Number HP CONVERSION (ABNORMAL) HEMOGLOBIN A1C, RAPID (01/16/2014 10:14 AM CDT) [facility] gist Method Time Signature Hemoglobin A1C 11.3 (H) 4.0 - 5.6 HP CONVERSION Rapid % Comment: The Rapid A1c test is designed for monit oring patients with an established diagnosis of diabetes jasen litus. ??The rapid method is not suitable to establish the intial diagnosis of diabetes melitus. Specimen Anatomical Collection Method Collection Time Receive d Time (Source) Location / / Volume Laterality 01/16/2014 10:14 01/16/2014 AM CDT 10:14 AM CDT Narrative HP CONVERSION - 01/16/2014 10:24 AM CDT Performed at [facility], [address] [place] [address] Gagandeep Hinojosa MD LAB_1 Performing Organization Address [facility] Phon e Number HP CONVERSION documented in this encounter Visit Diagnoses Diagnosis Type II or unspecified type diabetes jasen litus without mention of complication, uncontrolled Other and unspecified hyperlipidemia (HR C) Other and unspecified hyperlipidemia documented in this encounter Care Teams Regulatory Submissions Specialist Relationship Specialty Start Date End Date Gagandeep Hinojosa MD PCP - General 05/17/[address] [place] [id number] Vane Zarate Psychiatrist Psychiatry 03/22/12 documented as of this encounter
--- OUTSIDE RECORDS SUMMARY | 2022-02-12 12:11 | XMS_ITS | Encounter Summary ---
:1970 Author Organization [facility] Address [address] [place] [address] Care Team Providers Name Role Phone Gagandeep Hinojosa MD Primary Care Provider Encounter Details Date Type Department Care Team Description 01/16/2014 Lab Visit [facility] Hypertriglyceridemia; [address] Tachycardia, unspecified [place] [id number] Social History Tobacco Use Types Packs/Day Years Used Date Smoking Tobacco: Never Assessed Sex Assigned at Date Recorded Not on file documented as of this encounter Plan of Treatment Not on filedocumented as of this encounter Procedures Procedure Name Priority Date/Time Associated Diagnosis Comme nts THYROID STIMULATING Routine 01/16/2014 10:14 Tachycardia, unsp ecified Results for HORMONE AM CDT this procedure are in the results section. AMYLASE Routine 01/16/2014 10:14 Hypertriglyceridemia Res ults for AM CDT this procedure are in the results section. LIPASE Routine 01/16/2014 10:14 Hypertriglyceridemia Res ults for AM CDT this procedure are in the results section. TRIGLYCERIDES (> 12 Routine 01/16/2014 10:14 Hypertriglyceride meg Results for HR. FAST) AM CDT this procedure are in the results section. documented in this encounter Results THYROID STIMULATING HORMONE (01/16/2014 10:14 AM CDT) P athologist Signature Thyroid 2.32 0.20 - HP CONVERSION Stimulating 4.50 Hormone Specimen Anatomical Collection Method Collection Time Receive d Time (Source) Location / / Volume Laterality 01/16/2014 10:14 01/16/2014 3:44 AM CDT PM CDT Vanessa Ram PA-C LAB_1 Performing Organization Address City/[facility] Code Phon e Number HP CONVERSION Lipase (01/16/2014 10:14 AM CDT) athologist Signature Lipase 47 5 - 70 U/L HP CONVERSION Specimen Anatomical Collection Method Collection Time Receive d Time (Source) Location / / Volume Laterality 01/16/2014 10:14 01/16/2014 AM CDT 11:49 AM CDT Narrative HP CONVERSION - 01/16/2014 2:11 PM CDT Performed at [facility], [address] [place] [address] Vanessa Ram PA-C LAB_1 Performing Organization Address [facility] Phon e Number HP CONVERSION Amylase (01/16/2014 10:14 AM CDT) athologist Signature Amylase Serum 48 25 - 115 HP CONVERSION U/L Specimen Anatomical Collection Method Collection Time Receive d Time (Source) Location / / Volume Laterality 01/16/2014 10:14 01/16/2014 AM CDT 11:49 AM CDT Narrative HP CONVERSION - 01/16/2014 2:11 [place] [address] Vanessa Ram PA-C LAB_1 Performing Organization Address [facility] Phon e Number HP CONVERSION (ABNORMAL) Triglycerides (> 12 Hr. Fast) (01/16/2014 10:14 AM CDT) athologist Signature Triglycerides 614 (H) 0 - 149 HP CONVERSION mg/dL Specimen Anatomical Collection Method Collection Time Receive d Time (Source) Location / / Volume Laterality 01/16/2014 10:14 01/16/2014 AM CDT 11:49 AM CDT Narrative HP CONVERSION - 01/16/2014 2:11 PM CDT Performed at [facility], [address] [place] [address] Vanessa Ram PA-C LAB_1 Performing Organization Address [facility] Phon e Number HP CONVERSION documented in this encounter Visit Diagnoses Diagnosis Hypertriglyceridemia (HRC) Pure hyperglyceridemia Tachycardia, unspecified documented in this encounter Care Teams Manager Food Beverage Relationship Specialty Start Date End Date Gagandeep Hinojosa MD PCP - General 1/23/13 1415 [facility] [place] [address] Vane Zarate Psychiatrist Psychiatry 03/22/12 documented as of this encounter
--- OUTSIDE RECORDS SUMMARY | 2022-02-12 12:11 | XMS_ITS | Encounter Summary ---
:1970 Author [facility] Address [address] [address] Care Team Providers Name Role Phone Gagandeep Hinojosa MD Primary Care Provider Reason for Visit Reason Comments Missed Appointment Encounter Details Date Type Department Care Team Description 01/03/2014 Telephone [facility]iology Vanessa Ram PA-C Missed Appointment 1515 [facility] . [address] [place] [address] [place], [place] [phone] (Wo rk) Social History Tobacco Use Types Packs/Day Years Used Date Smoking Tobacco: Never Assessed Sex Assigned at Date Recorded Not on file documented as of this encounter Nursing Notes Vanessa Ram PA-C - 01/03/2014 11:20 AM CDT Mr. Krishnamurthy was called as he forgot about his appointment today. He would like to reschedule it fornext week and will be seen January 09. Cardiac symptoms are stable, no further episodes of chestpain. documented in this encounter Plan of Treatment Not on filedocumented as of this encounter Visit Diagnoses Not on filedocumented in this encounter Care Teams Student Records Coordinator Relationship Specialty Start Date End Date Gagandeep Hinojosa MD PCP - General 05/17/12 [address]15 [place], [place] [id number] Vane Zarate Psychiatrist Psychiatry 03/22/12 documented as of this encounter
--- OUTSIDE RECORDS SUMMARY | 2022-02-12 12:11 | XMS_ITS | Encounter Summary ---
:1970 Author Organization [facility] Address [address] [place] [address] Care Team Providers Name Role Phone Gagandeep Hinojosa MD Primary Care Provider Reason for Visit Reason Comments Diabetes Encounter Details Date Type Department Care Team Description 03/13/2014 Notes/Orders [facility] Gagandeep Hinojosa MD 1415 [facility] . [address] [place] [address] [place] [address] [phone] (Wo rk) Social History Tobacco Use Types Packs/Day Years Used Date Smoking Tobacco: Never Assessed Sex Assigned at Date Recorded Not on file documented as of this encounter Plan of Treatment Not on filedocumented as of this encounter Visit Diagnoses Not on filedocumented in this encounter Care Teams Assistant Director Of Residence Life Relationship Specialty Start Date End Date Gagandeep Hinojosa MD PCP - General 05/17/12 1415 [facility] [address] Vane Zarate Psychiatrist Psychiatry 03/22/12 documented as of this encounter
--- OUTSIDE RECORDS SUMMARY | 2022-02-12 12:11 | XMS_ITS | Encounter Summary ---
:1970 Author Organization [email or web address] Address [address] [place] [address] Care Team Providers Name Role Phone Gagandeep Hinojosa MD Primary Care Provider Reason for Visit Reason Comments UPDATE Encounter Details Date Type Department Care Team Description 01/17/2014 Telephone [facility] Vanessa Ram PA-C UPDATE 1515 [facility] . [address] [place] [address] [place], [place] [phone] (Wo rk) Social History Tobacco Use Types Packs/Day Years Used Date Smoking Tobacco: Never Assessed Sex Assigned at Date Recorded Not on file documented as of this encounter Nursing Notes Eliana Kumar RN - 01/17/2014 3:15 PM CDT Pt. informed and all questions answered. Vanessa Ram PA-C - 01/17/2014 2:54 PM CDT Keri, I agree, it may take some time to get used to the Toprol, but his heart rate is much better which isgood for his heart! He could try splitting the dose to 25 mg BID to see if fatigue improves if thereis no change after a week of 50 mg daily at night. Thanks! Eliana Kumar RN - 01/17/2014 2:28 PM CDT Reviewed all recommendations . He feels since starting theToprol he is really feeling fatigued. He has been trying to take it at night now but still feels so tired. He just wanted to let you know we did discuss that with time it may get better. Eliana Kumar RN - 01/17/2014 1:22 PM CDT Message left for pt. to call me back . [phone] Vanessa Ram PA-C - 01/17/2014 12:40 PM CDT Keri, Please review how he is feeling after changing from Coreg to Toprol and after starting Plavix for [address] Hinojosa's note was reviewed, please see if he was able to make the recommended medicationchanges. HR and BP were improved at his clinic visit 01/16. Please let him know that his triglycerides have significantly improved at 614, but are still elevated since he was in [place] when they were 1274. Further control of his blood sugar will help decrease this number since triglycerides are made of sugars and fats. His sodium was low - similar to his reading last February. Please review that he is not drinking more then 8 glasses of water daily. Lookfor labs in March, orders placed by primary care, after switching to atorvastatin. His potassium and renal function stable. TSH, lipase, and amylase were normal. Thanks! documented in this encounter Plan of Treatment Not on filedocumented as of this encounter Visit Diagnoses Not on filedocumented in this encounter Care Teams Production Director Relationship Specialty Start Date End Date Gagandeep Hinojosa MD PCP - General 05/17/12 [address] [place] [address] Vane Zarate Psychiatrist Psychiatry 03/22/12 documented as of this encounter
--- OUTSIDE RECORDS SUMMARY | 2022-02-12 12:11 | XMS_ITS | Encounter Summary ---
:1970 Author Organization [facility] Address [address] [place] [address] Care Team Providers Name Role Phone Gagandeep Hinojosa MD Primary Care Provider Reason for Visit Reason Comments LAB RESULTS Encounter Details Date Type Department Care Team Description 07/18/2013 Telephone [place] [facility] Gagandeep Hinojosa MD LAB RESULTS 1415 [facility] . [address] [place] [address] [place] [address] [phone] (Wo rk) Social History Tobacco Use Types Packs/Day Years Used Date Smoking Tobacco: Never Assessed Sex Assigned at Date Recorded Not on file documented as of this encounter Nursing Notes Maximilian Ag - 07/18/2013 10:55 AM CDT PAtient calling for lab results Reviewed with clinician directions for f/u appt given Appt made for07/20 Emy Santos - 07/18/2013 10:43 AM CDT LAB/RADIOLOGY RESULTS/REQUESTS Name of Clinician: antonio Results: What test result is needed?: pt had labs done on 07/13/13 and is wondering what the results were. When and Where was test done?: see above Who ordered test?: see above OR Request for Test/Order What test is needed and when?: n/a Why is test needed/requested? n/a documented in this encounter Plan of Treatment Not on filedocumented as of this encounter Visit Diagnoses Not on filedocumented in this encounter Care Teams Oil Tester Relationship Specialty Start Date End Date Gagandeep Hinojosa MD PCP - General 05/17/12 1415 [facility] [place] [address] Vane Zarate Psychiatrist Psychiatry 03/22/12 documented as of this encounter
--- OUTSIDE RECORDS SUMMARY | 2022-02-12 12:11 | XMS_ITS | Encounter Summary ---
:1970 Author Organization [facility] Address [address] [place] [address] Care Team Providers Name Role Phone Gagandeep Hinojosa MD Primary Care Provider Reason for Visit Reason Comments Follow-up Encounter Details Date Type Department Care Team Description 02/14/2014 Office Visit [facility] Zoie West, Coronary atherosclerosis of unspecified type of vessel, [place] or graft (Primary Dx); [address] [place], [place]; [address] [place] Hyperlipidemia LDL goal < 70 ; [place] [address] Blvd Type II or unspecified type diabetes jasen litus without mention of complication, uncontrolled; [phone] [place], [place] Tobacco us [place] disorder [address] Social History Tobacco Use Types Packs/Day Years Used Date Smoking Tobacco: Never Assessed Sex Assigned at Date Recorded Not on file documented as of this encounter Last Filed Vital Signs Vital Sign Reading Time Taken Comments Blood Pressure 124/78 02/14/2014 12:57 PM CDT Pulse 88 02/14/2014 12:57 PM CDT Temperature - - Respiratory Rate - - Oxygen Saturation - - Inhaled Oxygen Concentration - - Weight 104.8 kg (231 lb) 02/14/2014 12:57 PM CDT Height 177.8 cm (5' 10) 02/14/2014 12:57 PM CDT Body Mass Index 33.15 02/14/2014 12:57 PM CDT documented in this encounter Patient Instructions Patient InstructionsZoie West PA-C - 02/14/2014 1:18 PM CDT No change. Return in one year to see Dr. Greene or Vanessa Ram PA-C. Call sooner if any concerns [phone] Keri FINCH documented in this encounter Progress Notes Zoie West PA-C - 02/14/2014 1:33 PM CDT NAME: SHARLENE VARNER MR#: [id number] CSN: [id number] AUTHENTICATING CLINICIAN: Vanessa Ram PA-C CONFIRM #: [id number] LOC: 3205 CLINIC PROGRESS NOTE DATE OF VISIT: 01/09/2014 : 1970 CHIEF COMPLAINT: Coronary artery disease. Mr. Varner is a pleasant, 44-year-old gentleman who presents to the [facility]. He was seen last by Vanessa Ram PA-C in December after having a couple hospitalizations for chest discomfort. He did have a Nuclear stress test on 11/21/2013 which showed normal myocardial perfusion. He did have an echo that showed normal EF of 60%. At that time he was found to have sinus tachycardiac and some hypotension and so his carvedilol was switched to metoprolol. It was recommended that he be on Plavix for 1 month post hospital due to troponin elevation, though it was thought likelyrelated to his tachycardia. He saw Vanessa and hadn't made any of the changes that were suggested. He since has started the metoprolol and is almost done with his month of Plavix. He is feeling well today. He has no complaints. He is tolerating the metoprolol without issue, initially did cause some fatigue. He continues to smoke and has been trying to cut back. His cardiac history is significant for an inferior wall myocardial infarction with a bare-metal stent in April 2011. On his angiogram in 2012, he had nvwc-ht-zhdboali diffuse disease, specifically inthe distal RCA and diagonal lesions, but no major coronary stenosis. MEDICATIONS: Current Outpatient Prescriptions Medication Sig Dispense Refill ??? aspirin 81 mg chewable tablet TAKE 1 TABLET BY MOUTH DAILY . 100 tablet 1 ??? atorvastatin (LIPITOR) 80 mg tablet Take 1 tablet by mouth daily (every 24 hours). Okay to fill now as he is stopping simvastatin. 30 tablet 11 ??? clopidogrel (PLAVIX) 75 mg tablet Take 1 tablet by mouth daily (every 24 hours). 30 tablet 0 ??? divalproex (DEPAKOTE) 500 mg EC tablet [...] tablet by mouth daily (every 24 hours). 30 tablet 1 ??? omega-3 fatty acids-fish oil [...] 10 tablet 0 No current facility-administered medications for this visit. ADVERSE DRUG REACTIONS/ALLERGIES: Reviewed and updated in Epic. REVIEW OF SYSTEMS: A complete 12-point review of systems was obtained, and is negative, otherwise as mentioned above. OBJECTIVE:BP 124/78 Pulse 88 Ht 5' 10 (177.8 cm) Wt 231 lb (416473 g) BMI 33.15 kg/m2 Pulsewith my recheck 100 GENERAL: Mr. Varner is a pleasant male in no acute distress, oriented x3. Normal affect. LUNGS: Clear to auscultation bilaterally. CARDIOVASCULAR: Regular , mildly tachycardic with no murmur. No JVD or HJR at a 45-degree angle. ABDOMEN: Soft, nontender. No evidence of hepatomegaly. EXTREMITIES: No edema, with strong pedal pulses. Recent laboratory data Results for SHARLENE VARNER ( ) as of 02/14/2014 13:28 Ref. Range 01/16/2014 10:14 Sodium Latest Range: 137-147 130 (L) Potassium Latest Range: 3.5-5.2 4.6 Chloride Latest Range: 98-110 97 (L) Bicarbonate Latest Range: 23-33 mmol/L 27 Creatinine Serum Latest Range: 0.4-1.3 mg/dL 0.8 Est GFR Non-Afr Am Latest Range: >60 >60 Est GFR Am Latest Range: >60 >60 Hemoglobin A1C Rapid Latest Range: 4.0-5.6 % 11.3 (H) Lipase Serum Latest Range: 5-70 U/L 47 Triglycerides Latest Range: 0-149 mg/dL 614 (H) Amylase Latest Range: 25-115 U/L 48 Thyroid Stimulating Hormone Latest Range: 0.20-4.50 2.32 Cardiac Nuclear stress test from November 21 did not show any ischemia. Echocardiogram performed on November 27, 2013 showed an ejection fraction of 60%. Normal left ventricular size with rjyx-hs-mzbgzfwm concentric left ventricular hypertrophy. No regional wall motion abnormalities were seen. Mild left ventricular diastolic dysfunction. The right ventricle was normal in size and function. No significant valve pathology was seen. EKG from December 18 showed sinus tachycardia with a heart rate of 102. ASSESSMENT: 1. Coronary artery disease. a. History of inferior wall myocardial infarction, with a bare-metal stent in April 2011. b. Shku-ge-lwbwjxoq diffuse nonobstructive distal disease on coronary angiogram on October 27, 2012. Thepreviously deployed stent in the posterior descending branch of the right coronary artery was patent, with bzrh-me-enwlrzaf in-stent restenosis. This did not appear to be flow limiting. c. Preserved left ventricular function. No inducible ischemia on recent evaluation in October 2013. No current symptoms of angina. 2. Hypertension. Blood pressure readings to goal. 3. Hyperlipidemia. on high intensity atorvastatin, cholesterol ordered by PCP for March 4. Obesity. 5. Diabetes mellitus-uncontrolled. A1C 11.3 6. Current tobacco abuse, he is trying to cut back 7. Decreased compliance in the past due to financial constraints. PLAN: 1. No change at this time. He will continue on current regimen with lipid profile in March as planned by Dr. Hinojosa. 2. Reviewed importance of CAD risk factor modication, reviewed smoking cessation, blood sugar control. 3. He will return in one year, sooner if issues. documented in this encounter Plan of Treatment Not on filedocumented as of this encounter Visit Diagnoses Diagnosis Coronary atherosclerosis of unspecified type of vessel, [place] or graft ([facility]) - Primary Coronary atherosclerosis of unspecified type of vessel, [place] or graft [place], [place] ([facility]C) Old myocardial infarction Hyperlipidemia LDL goal < 70 ([facility]) Other and unspecified hyperlipidemia Type II or unspecified type diabetes jasen litus without mention of complication, uncontrolled Tobacco use disorder ([facility]) Tobacco use disorder documented in this encounter Care Teams Drapery Rod Assembler Relationship Specialty Start Date End Date Gagandeep Hinojosa MD PCP - General 05/17/12 1415 [facility] [place] [address] Vane Zarate Psychiatrsamantha Psychiatry 03/22/12 documented as of this encounter
--- OUTSIDE RECORDS SUMMARY | 2022-02-12 12:11 | XMS_ITS | Encounter Summary ---
:1970 Author Organization [facility] Address [address] [place] [address] Care Team Providers Name Role Phone Gagandeep Hinojosa MD Primary Care Provider Reason for Visit Reason Comments Diabetes Encounter Details Date Type Department Care Team Description 05/14/2014 Notes/Orders [facility] Gagandeep Hinojosa MD 1415 [facility] . [address] [place] [address] [place] [address] [phone] (Wo rk) Social History Tobacco Use Types Packs/Day Years Used Date Smoking Tobacco: Never Assessed Sex Assigned at Date Recorded Not on file documented as of this encounter Miscellaneous Notes Letter - Gagandeep Hinojosa MD - 05/14/2014 12:00 AM CST 05/14/2014 Timur Krishnamurthy [address] [place] [id number] : 1970 Dear Timur: I am contacting you with a reminder that it is time for your diabetes visit , please call [phone] to schedule your visit due in April. To prepare for this visit, it is important that you have your labs drawn prior to your appointment so the results are available for review at your visit. You will need to have the following tests: Hemoglobin A1C, LDL-Cholesterol and Urine microalbumin. You do have to fast for 10 hours. However, you may drink water, black coffee or tea. You will need to give a urine specimen. These tests should be completed 30 minutes before your visit. You can schedule your lab appointment at [phone]. Please continue to take your medications as prescribed. We look forward to seeing you again. Gagandeep Hinojosa MD [address] PRODUCTION documented in this encounter Plan of Treatment Not on filedocumented as of this encounter Visit Diagnoses Not on filedocumented in this encounter Care Teams Toolman Relationship Specialty Start Date End Date Gagandeep Hinojosa MD PCP - General 05/17/[address] [place] [address] [place] [address] Vane Zarate Psychiatrist Psychiatry 03/22/12 documented as of this encounter
--- OUTSIDE RECORDS SUMMARY | 2022-02-12 12:11 | XMS_ITS | Encounter Summary ---
:1970 Author Organization [facility] Address [address] [place] [address] Care Team Providers Name Role Phone Gagandeep Hinojosa MD Primary Care Provider Reason for Visit Reason Comments Other Encounter Details Date Type Department Care Team Description 11/22/2013 [facility]phone [facility] Gagandeep Hinojosa MD Other 1415 [facility] . [address] [place] [address] [place] [address] [phone] (Wo rk) Social History Tobacco Use Types Packs/Day Years Used Date Smoking Tobacco: Never Assessed Sex Assigned at Date Recorded Not on file documented as of this encounter Nursing Notes Jackeline Al - 11/22/2013 11:47 AM CDT Timur is scheduled at [facility] on November 27 at 3:00. Maximilian Ag - 11/22/2013 11:20 AM CDT PAtient calling Advised of note from Card with recommendation and order for ECHO from primary Transferred to scheduling to assist in scheduling ECHO Nereida Triana - 11/22/2013 11:12 AM CDT Pt states he received a phone call to discuss test results 11/[address] Hinojosa documented in this encounter Plan of Treatment Not on filedocumented as of this encounter Visit Diagnoses Not on filedocumented in this encounter Care Teams High [employer] Foreign Language Teacher Relationship Specialty Start Date End Date Gagandeep Hinojosa MD PCP - General 05/17/12 [facility] [place] [address] Vane Zarate Psychiatrist Psychiatry 03/22/12 documented as of this encounter
--- OUTSIDE RECORDS SUMMARY | 2022-02-12 12:11 | XMS_ITS | Encounter Summary ---
:1970 Author Organization [facility] Address [address], [place] [address] Care Team Providers Name Role Phone Gagandeep Hinojosa MD Primary Care Provider Reason for Visit Reason Comments Refill Encounter Details Date Type Department Care Team Description 02/26/2014 [facility] Maricarmen Ram PA-C Refill Cardiology [address] [place] [address] [place] [address] [phone] Social History Tobacco Use Types Packs/Day Years Used Date Smoking Tobacco: Never Assessed Sex Assigned at Date Recorded Not on file documented as of this encounter Nursing Notes Eliana Kumar RN - 02/28/2014 1:06 PM CST rx had been written for 90 day . I sent it again . Evelin Stockton - 02/26/2014 9:55 AM CST Insurance requesting Rx to be written for a 90 day supply. Last Visit: 02/14/14 Future Visit: none documented in this encounter Plan of Treatment Not on filedocumented as of this encounter Visit Diagnoses Not on filedocumented in this encounter Care Teams Garment Mender Relationship Specialty Start Date End Date Gagandeep Hinojosa MD PCP - General 05/17/12 [address] [place] [address] Vane Zarate Psychiatrist Psychiatry 03/22/12 documented as of this encounter
--- OUTSIDE RECORDS SUMMARY | 2022-02-12 12:11 | XMS_ITS | Encounter Summary ---
:1970 Author Organization [facility] Address [address] [place] [address] Care Team Providers Name Role Phone Gagandeep Hinojosa MD Primary Care Provider Reason for Referral Specialty Diagnoses / Procedures Referred By Contact Refer red To Contact Gagandeep Hinojosa MD [address] [facility] [address] [place] [address] Referral ID Status Reason Start Date Expiration Date Visits Requ ested Visits Authorized Reason for Visit Reason Comments Diabetes Encounter Details Date Type Department Care Team Description 01/16/2014 Office Visit Gagandeep Storm (Primary Dx); Romario Rubio MD Type II or unspecified type diabetes jasen litus without mention of complication, uncontrolled; [address] [facility] Need for influenza vaccinati on; [place] [address] [address] [address] Proteinuria; [phone] [place] [phone] detention current use of insulin; [phone] Long-term insul in use in type 2 diabetes; (Work) Other and unspecified hyperlipidemia; Tobacco u se disorder; Obesity, unspec ified Social History Tobacco Use Types Packs/Day Years Used Date Smoking Tobacco: Never Assessed Sex Assigned at Date Recorded Not on file documented as of this encounter Last Filed Vital Signs Vital Sign Reading Time Taken Comments Blood Pressure 112/72 01/16/2014 10:30 AM CDT Pulse 80 01/16/2014 10:30 AM CDT Temperature - - Respiratory Rate - - Oxygen Saturation - - Inhaled Oxygen Concentration - - Weight 100.6 kg (221 lb 12.8 oz) 01/16/2014 10:30 AM CDT Height - - Body Mass Index 31.83 01/09/2014 2:20 PM CDT documented in this encounter Patient Instructions Patient InstructionsGagandeep Hinojosa MD - 01/16/2014 4:31 PM CDT My Diabetes at a Glance Aspirin Use Y/N A1C % Blood Pressure mm/Hg LDL Cholesterol mg/dL Tobacco Use Y/N Eye Exam Foot ExamUrine Microalbumin Most Recent Results Yes 11.3 112/72 123 Yes normal normal 120.8 Prior Results Yes 10.4 132/82 123 Yes normal normal 232.7 Your Goal 81 milligrams a day or as recommended Less than 8 Less than 130/80 Less than 100 Tobacco Free Normal Exam Normal Exam Less than 30 How often to check Take Daily 3 months Every clinic visit Yearly Never Use Yearly Exam Yearly Exam Yearly Exam (More frequent if results are abnormal) To meet your A1C goal of Less than 7% aim for the following blood glucose goals: Before Meals: 70-120 mg/dL; 2 Hours After Meals: less than 160 mg/dL (and no more than 40 mg/dL above pre-meal reading);Bed Time: 80-120 mg/dL. Goals of Treatment for Diabetes Treatment goals [...] encounter Progress Notes Gagandeep Hinojosa MD - 01/16/2014 4:32 PM CDT SUBJECTIVE: 43 y.o. male presents today for diabetes check. Patient has been unable to afford his insulin, and has reduced his dose Aspirin:Continues to take aspirin daily. No stomach [...] years. He quit smokeless tobacco use about 14 months ago. Eye exam: Patient is not up-to-date [...] daily (every 24hours). 90 tablet 3 ??? metoprolol succinate (TOPROL-XL) 50 mg 24 [...] Comments) Muscle spasm OBJECTIVE: Vital Signs: BP 112/72 Pulse 80 Wt 221 lb 12.8 oz (100.608 kg) BMI 31.83 kg/m2 General: Alert, Oriented, NAD Head: Normocephalic. [...] Component Value Date A1C 10.4* 07/13/2013 MICROALBUR 120.8 01/16/2014 CREA 0.8 01/16/2014 Lab Results Component Value Date CHOLESTEROL 197 07/13/2013 HDL 30* 07/13/2013 LDL 123 07/13/2013 TRIGLYCERIDE 614* 01/16/2014 Lab Results Component Value Date ALT 20 03/07/2013 AST 25 07/13/2013 HGB A1C Date Value Range Status 07/13/2013 10.4* 4.0 - 5.6 % Final Hemoglobin A1CRM Date Value Range Status 11/25/2010 10.0* 0.0-6.0 % Final Hemoglobin A1C Rapid Date Value Range Status 01/16/2014 11.3* 4.0 - 5.6 % Final The Rapid A1c test is designed for monitoring patients with an established diagnosis of diabetes mellitus. The rapid method is not suitable to establish the intial diagnosis of diabetes melitus. Hemoglobin A1C, POC Date Value Range Status 07/06/2011 10.6* 6.0 % Final Lab Results Component Value Date/Time HGB A1C 10.4* 07/13/2013 1039 Hemoglobin A1CRM 10.0* 11/25/2010 1618 Hemoglobin A1C Rapid 11.3* 01/16/2014 1014 Hemoglobin A1C, POC 10.6* 07/06/2011 1650 No results found for this basename: GLUF Lab Results Component Value Date CL 97* 01/16/2014 ASSESSMENT: 1. Type 2 diabetes, uncontrolled 2. Hypertension, controlled 3. Hyperlipidemia, uncontrolled Diagnosis (ICD9) and Associated Orders ICD-9-CM 1. Financial difficulties V60.2 [facility] Care Coordination Consult (AMB) 2. Type II or unspecified type diabetes mellitus without mention of complication, uncontrolled (HCC)250.02 lisinopril (PRINIVIL, ZESTRIL) 5 mg tablet metFORMIN (GLUCOPHAGE) 500 mg tablet insulin NPH (NOVOLIN N) 100 unit/mL Susp insulin regular (NOVOLIN R) 100 unit/mL injection Chronic 3. Need for influenza vaccination V04.81 Fluarix Influenza QIV (36+ mos) PLAN: 1. refer to health shelterhome extension agent. Add metformin Diabetes measures: A1c Due: 3 months Foot Exam: 3 months Eye exam: pending Cholesterol: pending Electrolytes: pending UMAR: 3 months Aspirin: yes Tobacco: yes documented in this encounter Plan of Treatment Not on filedocumented as of this encounter Visit Diagnoses Diagnosis Financial difficulties - Primary Inadequate material resources Type II or unspecified type diabetes jasen litus without mention of complication, uncontrolled Need for influenza vaccination Need for prophylactic vaccination and in oculation against influenza Proteinuria detention current use of insulin (HRC) Encounter for long-term (current) use of insulin Long-term insulin use in type 2 diabetes (HRC) Type II or unspecified type diabetes jasen litus without mention of complication, not stated as uncontrolled Other and unspecified hyperlipidemia (HR C) Other and unspecified hyperlipidemia Tobacco use disorder (HRC) Tobacco use disorder Obesity, unspecified (HRC) Obesity, unspecified documented in this encounter Care Teams Glass Pulverizer Equipment Operator Relationship Specialty Start Date End Date Gagandeep Hinojosa MD PCP - General 05/17/12 [address] [place] [address] [address] Psychiatrist Psychiatry 03/22/12 documented as of this encounter
--- OUTSIDE RECORDS SUMMARY | 2022-02-12 12:11 | XMS_ITS | Encounter Summary ---
:1970 Author Organization [employer] Address [address] [place] [address] Care Team Providers Name Role Phone Gagandeep Hinojosa MD Primary Care Provider Reason for Visit Reason Comments Diabetes Encounter Details Date Type Department Care Team Description 05/21/2014 Office Visit Gagandeep Storm Type II or unspecified type diabetes mellitus without mention of complication, uncontrolled (Primary Dx); Romario Rubio MD Background diabetic retinopathy; [address] [facility] longterm current use of ins ulin; [place] [address] [address] [address] Long-term insulin use in type 2 diabetes ; [phone] [place] VIGIL [address] Unspecified essential hypertension; [phone] Other and unspe cified hyperlipidemia; (Work) Tobacco use disorder; Obesity, unspecified Social History Tobacco Use Types Packs/Day Years Used Date Smoking Tobacco: Never Assessed Sex Assigned at Date Recorded Not on file documented as of this encounter Last Filed Vital Signs Vital Sign Reading Time Taken Comments Blood Pressure 118/77 05/21/2014 1:05 PM ROUNDING MACHINE OPERATOR Pulse 94 05/21/2014 1:05 PM ROUNDING MACHINE OPERATOR Temperature - - Respiratory Rate - - Oxygen Saturation - - Inhaled Oxygen Concentration - - Weight 106.6 kg (235 lb) 05/21/2014 1:05 PM ROUNDING MACHINE OPERATOR Height - - Body Mass Index 33.72 02/14/2014 12:57 PM CDT documented in this encounter Patient Instructions Patient InstructionsGagandeep Hinojosa MD - 05/22/2014 12:38 AM CST Recheck with eye exam in May My Diabetes at a Glance Aspirin Use Y/N A1C % Blood Pressure mm/Hg LDL Cholesterol mg/dL Tobacco Use Y/N Eye Exam Foot ExamUrine Microalbumin Most Recent Results Yes 11.0 118/77 51 Yes abnormal normal 129 Prior Results Yes 11.3 124/73 123 Yes abnormal normal 120 Your Goal 81 milligrams a day or [...] than 180 mg/dL; Bed Time 90-160 mg/dL. Goals of Treatment for Diabetes Treatment [...] A normal value is less than 30. DING MACHINE OPERATOR documented in this encounter Progress Notes Gagandeep Hinojosa MD - 05/22/2014 12:39 AM CST SUBJECTIVE: 44 y.o. male presents today for diabetes check. Has not been diligent in utilizing his insulin as directed because of finances. Aspirin:Continues to take aspirin daily. No stomach [...] at goal. No muscle aches or pains. Previous cardiac event requiring stenting Tobacco: Patient reports that he has been smoking Cigarettes. He has been smoking about 0.00 packs per day for the past 25 years. He quit smokeless tobacco use about 18 months ago. Eye exam: Patient is up-to-date with eye exam. Patient does have a history of right-sided back on diabetic retinopathy. No blurry or double vision Foot exam: Patient does not have a history of neuropathy. No sores, numbness, or tingling. Kidney health: does not have a history of nephropathy. No burning or pain with urination, no polyuria or polydipsia. He does have proteinuria Review of systems: See Above Medications: Reviewed and updated Current Outpatient Prescriptions on File Prior to Visit Medication Sig Dispense Refill ??? aspirin 81 mg chewable tablet TAKE 1 TABLET BY MOUTH DAILY . 100 tablet 1 ??? atorvastatin (LIPITOR) 80 mg tablet Take 1 tablet by mouth daily (every 24 hours). Okay to fill now as he is stopping simvastatin. 90 tablet 3 ??? clopidogrel (PLAVIX) 75 mg tablet Take [...] Comments) Muscle spasm OBJECTIVE: Vital Signs: BP 118/77 Pulse 94 Wt 235 lb (106.595 kg) General: Alert, Oriented, NAD Head: Normocephalic. [...] Hemoglobin A1C Rapid Date Value Range Status 05/21/2014 11.0* 4.0 - 5.6 % Final The Rapid [...] A1CRM 10.0* 11/25/2010 1618 Hemoglobin A1C Rapid 11.0* 05/21/2014 1206 Hemoglobin A1C, POC 10.6* 07/06/2011 1650 No results found for this basename: GLUF Lab Results Component Value Date CL 97* 01/16/2014 ASSESSMENT: 1. Type 2 diabetes, uncontrolled 2. Hypertension, controlled 3. Hyperlipidemia, uncontrolled PLAN: 1. he needs to improve his diabetes management, which may be possible now that he has adequate funding for his prescriptions. Unfortunately, he may need to change to a different statin, as he has not been at target. Positive cardiac history The patient was discharged ambulatory and in stable condition. Diabetes measures: A1c Due: 3 months Foot Exam: 3 months Eye exam: This year in January Cholesterol: 3 months Electrolytes: Not applicable UMAR: 3 months Aspirin: yes Tobacco: yes DING MACHINE OPERATOR documented in this encounter Plan of Treatment Not on filedocumented as of this encounter Visit Diagnoses Diagnosis Type II or unspecified type diabetes jasen litus without mention of complication, uncontrolled - Primary Background diabetic retinopathy (HRC) Type II or unspecified type diabetes jasen litus with ophthalmic manifestations, not stated as uncontrolled lobsterman current use of insulin (HRC) Encounter for [...] unspecified documented in this encounter Care Teams Gas Leak Inspector Relationship Specialty Start Date End Date Gagandeep Hinojosa MD PCP - General 05/17/12 [facility] [place] [address] [address] Psychiatrist Psychiatry 03/22/12 documented as of this encounter
--- OUTSIDE RECORDS SUMMARY | 2022-02-12 12:11 | XMS_ITS | Encounter Summary ---
:1970 Author Organization [employer] Address [address] [address] Care Team Providers Name Role Phone Gagandeep Hinojosa MD Primary Care Provider Encounter Details Date Type Department Care Team Description 09/18/2014 Hospital Encounter Heart & Vascular Chest pain, unspecified Center Nuclear (Primary Dx) Cardiology [address] [facility] [place] [address] Social History Tobacco Use Types Packs/Day Years Used Date Smoking Tobacco: Never Assessed Sex Assigned at Date Recorded Not on file documented as of this encounter Medications at Time of Discharge Medication Sig Dispensed Refills Start End Date Date aspirin 81 MG chewable TAKE 1 TABLET BY MOUTH 100 tablet 1 0 tablet DAILY . 2 atorvastatin (AKA Take 1 tablet by mouth 90 tablet 3 11/29/19 LIPITOR) 80 MG tablet daily (every 24 hours). 4 15 Okay to fill now as he is stopping simvastatin. divalproex (DEPAKOTE) Take 2,000 mg by mouth 0 04/02/20 500 MG enteric coated DAILY MORNING LAB. Do 1 16 tablet not cut/crush/chew. Take with food. insulin isophane (AKA Inject 80 Units 40 mL 5 12/10/19 NOVOLIN NPH,HUMULIN N) subcutaneously 2 times 4 15 100 UNIT/ML daily (before meals). injectionIndications: BREAKFAST AND DINNER Type II or unspecified type diabetes mellitus without mention of complication, uncontrolled insulin pen needle 31G X Inject 1 Needle 200 each 0 12/10/19 8 MM (PEN NEEDLES subcutaneously. 250.02 2 15 31GX5/16)Indications: Use new needle each Type II or unspecified injection, 4 daily type diabetes mellitus without mention of complication, uncontrolled insulin regular (HUMULIN Inject 76 Units 40 mL 5 12/10/19 R) 100 UNIT/ML subcutaneously 2 times 4 15 injectionIndications: daily (before meals). Type II or unspecified BREAKFAST AND DINNER type diabetes mellitus without mention of complication, uncontrolled Insulin Syringe-Needle Inject 1 each 500 each 3 12/10/19 U-100 (INSULIN SYRINGE subcutaneously 4 times 4 15 1CC/28G) 28G X 1/2 1 ML daily. lisinopril (AKA ZESTRIL) Take 1 tablet by mouth 90 tablet 3 12/10/19 5 MG tabletIndications: daily (every 24 hours). 4 15 Type II or unspecified type diabetes mellitus without mention of complication, uncontrolled metFORMIN (AKA Take 1 tablet by mouth 2 180 tablet 0 08/22/2 01 12/10/19 GLUCOPHAGE) 500 MG times daily (with 5 15 tabletIndications: Type meals). II or unspecified type diabetes mellitus without mention of complication, uncontrolled metoPROLOL succinate Take 1 tablet by mouth 90 tablet 1 12/10/19 (AKA TOPROL XL) 50 MG 24 daily (every 24 hours). 5 15 hour release tabletIndications: ASHD (arteriosclerotic heart disease) (HRC) omega-3 fatty acids Take 2 capsules by mouth 360 capsule 3 0 07/10/19 (FISH OIL) 1000 MG 2 times daily. 2 17 capsuleIndications: Indications: Hypertriglyceridemia HYPERTRIGLYCERIDEMIA (HRC) risperiDONE (RISPERDAL) Take 4 mg by mouth daily 0 08/05/19 4 MG tablet (every 24 hours). 1 18 Tadalafil (CIALIS) 20 MG Take 1 tablet by mouth 10 tablet 0 06/09/19 tablet as needed for Erectile 4 17 Dysfunction. Take 30 minutes prior to sexual activity documented as of this encounter Plan of Treatment Not on filedocumented as of this encounter Procedures Procedure Name Priority Date/Time Associated Diagnosis Comme nts OUTREACH NUCLEAR Routine 09/18/2014 10:10 AM Chest pain, Resu lts for this STUDY CDT unspecified procedure are i n the results section. documented in this encounter Results Outreach Nuclear Study (09/18/2014 10:10 AM CDT) Specimen (Source) Anatomical Location Collection Method / Collectio n Time Received Time / Laterality Volume Narrative HP CONVERSION - 09/18/2014 10:10 AM CDT Loading... [facility]*, [address] [facility] [place] [address] ?? Results STRESS TEST PHARMACOLOGICAL ( (Order [id number]) ? Original Order Diagnosis Diagnosis Chest pain, unspecified chest pain type [] ? Result Information ??Exam Date and Time Status Reading Lefty meredith ??09/18/2014 ??9:25 AM Final Simi NORRIS ? Reading Provider(s) ??Stevenson Norris MD ?? PACS Images ??Show images for STRESS TEST PHARMACOL OGICAL ? Study Result ??NUCLEAR STRESS TEST, 09/18/2014 INDICATION: Chest pain. PROCEDURE: The patient underwent standar d Lam protocol combined with myocardial perfusion imaging. He ex ercised for 8 minutes, 45 seconds, achieving heart rate of 164, wh ich is 93% of maximum predicted heart rate. Patient reported no chest pain. His bloo d pressure increased appropriately in response to exercise. M aximum workload was 10.1 mets. Patient was injected with 37.1 mCi of se stamibi for stress imaging and 10.2 mCi of sestamibi for re st imaging. EKG REST: ??No significant ST abnormalit ies. EKG STRESS: ??There is mild nonspecific ST depression in inferolateral leads noted during recover y. This is nondiagnostic for myocardial ischemia. SPECT PERFUSION: ??There is normal myoca rdial perfusion during stress and rest. SPECT GATING: ??Calculated left ventricu lar ejection fraction is about 44%, but left ventricular ejection fraction is normal by visual estimate. There is no segmental w all motion abnormalities. CONCLUSIONS: ?? Normal exercise nuclear stress test with out evidence of inducible ischemia, myocardial infarction, or LV d ysfunction. Stevenson Norris M.D. FRANCY/darinel ? Result History ??STRESS TEST PHARMACOLOGICAL (Order #[id number]) on 09/18/14 - Order Result History Report. ?? Hard Copy Result Report ??Open Hard Copy Result Report (Order#[id number] - STRESS TEST PHARMACOLOGICAL) ?? STRESS TEST PHARMACOLOGICAL (Accession A [id number]) (Order [id number]) ?Image Documentation: Technologist ?No findings ? Removed from In Basket ??Done By ??Kailash Green DO on 09/23/2014 10: 08 PM ?? Patient Release Status: ?This result is not viewable by the irlanda garcia. ?? Patient Information ??Patient Name Sex ??Timur Krishnamurthy ([id number]) Mal e 1970 ?Room Bed Code Status ??2217 Prior ?? Order STRESS TEST PHARMACOLOGICAL [[id number]] (A ccession [id number]) (Order [id number]) Order Requisition ??STRESS TEST PHARMACOLOGICAL (Order #[id number]) on 09/18/14 ?? Priority and Order Details ??Priority Class ??Routine Hospital Performed ? Quantity ??Ordering Quantity ??1 ?? Order Information ??Date Department Released By Pankaj ambrosio ??09/18/2014 [facility], Order Release Kailash Green DO ?? Order Providers ??Authorizing Provider Encounter Provid er Billing Provider ??Kailash Green None Velasquez Green N ?? Original Order ??Ordered On Ordered By ??TueSeptember 18, 2014 ??6:37 [address] lazaro mcgraw R ? Associated Diagnoses ?? ICD-9-CM ICD-10-CM ??Chest pain, unspecified chest pain ty pe ?? 786.50 R07.9 ?? Comments ??If 2nd Troponin is normal. No caffein e 24 hours prior to test. NPO 4 hours prior to test. ?? Order CC Information ??Recipient Phone ??Kailash Green DO, DO [[id number] [phone] ?? Appointments for this Order ??09/18/2014 ??9:00 AM ??- 30 min Rm, St f Mi Nm Stress (Resource) [facility] ?? Lab Information ??Resulting Physician ??Stevenson Norris MD ?? Order Questions ??Question Answer Comment ??What Pharmacologic Agent should be us ed for Stressing? LEXISCAN ? Encounter ??View Encounter ?? Patient Release Status: ?This result is not viewable by the irlanda garcia. ?? Timur Krishnamurthy (MR # [id number]) P arnel at 09/24/14 10:09 AM Kailash Green DO PN CARDIAC SERVICES ORDERABL ES Performing Organization Address City/State/ZIP Code Phon e Number HP CONVERSION documented in this encounter Visit Diagnoses Diagnosis Chest pain, unspecified - Primary documented in this encounter Care Teams Model Builder Relationship Specialty Start Date End Date Gagandeep Hinojosa MD PCP - General 05/17/12 [address] [place] [address] [address] Psychiatrist Psychiatry 03/22/12 documented as of this encounter
--- OUTSIDE RECORDS SUMMARY | 2022-02-12 12:11 | XMS_ITS | Encounter Summary ---
:1970 Author Organization [facility] Address [address] [place] [address] Care Team Providers Name Role Phone Gagandeep Hinojosa MD Primary Care Provider Encounter Details Date Type Department Care Team Description 05/27/2014 Notes/Orders Y[facility]itza [facility] Gagandeep Hinojosa MD [address] [facility] . [address] [place] [address] [place] [address] [phone] (Wo rk) Social History Tobacco Use Types Packs/Day Years Used Date Smoking Tobacco: Never Assessed Sex Assigned at Date Recorded Not on file documented as of this encounter Plan of Treatment Not on filedocumented as of this encounter Visit Diagnoses Not on filedocumented in this encounter Care Teams Welfare Worker Relationship Specialty Start Date End Date Gagandeep Hinojosa MD PCP - General 05/17/12 14[address] [facility] [place] [address] [address] Psychiatrsamantha Psychiatry 03/22/12 documented as of this encounter
--- OUTSIDE RECORDS SUMMARY | 2022-02-12 12:11 | XMS_ITS | Encounter Summary ---
:1970 Author Organization [facility] Address [address] [place] [address] Care Team Providers Name Role Phone Gagandeep Hinojosa MD Primary Care Provider Reason for Visit Reason Comments Refill Encounter Details Date Type Department Care Team Description 07/04/2014 Refill [place] [facility] Vanessa Ram, PAAntoineC Refill [address] [facility] . [address] [facility] [place] [address] [place] [address] [phone] (Wo rk) Social History Tobacco Use Types Packs/Day Years Used Date Smoking Tobacco: Never Assessed Sex Assigned at Date Recorded Not on file documented as of this encounter Plan of Treatment Not on filedocumented as of this encounter Visit Diagnoses Not on filedocumented in this encounter Care Teams Talent Sourcing Specialist Relationship Specialty Start Date End Date Gagandeep Hinojosa MD PCP - General 05/17/12 [address] [place] [address] [address] Psychiatrist Psychiatry 03/22/12 documented as of this encounter
--- OUTSIDE RECORDS SUMMARY | 2022-02-12 12:11 | XMS_ITS | Encounter Summary ---
:1970 Author Organization [employer] Address [address], [place] [address] Care Team Providers Name Role Phone Gagandeep Hinojosa MD Primary Care Provider Reason for Visit Reason Comments RESULTS, TEST Patient Calling Back Encounter Details Date Type Department Care Team Description 11/27/2013 Telephone [facility] Gagandeep Hinojosa RESUL TS, TEST; Patient Medicine MD Calling Back [address] [facility] . [address] [place] [address] [place], [place] [address] (Wo rk) Social History Tobacco Use Types Packs/Day Years Used Date Smoking Tobacco: Never Assessed Sex Assigned at Date Recorded Not on file documented as of this encounter Nursing Notes Vanessa Pond LPN - 11/30/2013 8:41 AM CDT pt advised of the below Gagandeep Hinojosa MD - 11/29/2013 6:10 PM CDT Call patient. echocardiogram shows normal ejection fraction of 60%. No work limitations Tatyana Christian RN - 11/29/2013 4:51 PM CDT Pt calling back. Results routed to PCP. He would like a call back venkat with results. To Dr. Hinojosa for review and call back Hoa Lemon - 11/29/2013 4:45 PM CDT Pt calling back. Would like to speak to nurse. Dominique Hill - 11/29/2013 2:45 PM CDT Patient requesting results. competed at [facility] on 11/27/13 Show images for ECHO COMPLETE W CONTRAST Study Result ECHOCARDIOGRAM COMPLETE WITH CONTRAST DATE OF STUDY: 11/27/2013 PROCEDURE: 2-D Echo, Doppler/Spectral, Color Flow. INDICATION FOR STUDY:Other nonspecific cardiovascular system function study. TECH INITIALS: CB AGE: 43 y.o. Ht: 178 Wt. 99 BSA: 2.18 m?? BP: 130/80 Final Impression: 1. Normal left ventricular size with mild to moderate concentric left ventricular hypertrophy. The left ventricular systolic function is normal with an estimated resting ejection fraction of 60%. No regional wall motion abnormalities were seen. There is mild left ventricular diastolic dysfunction. 2. The right ventricle is normal in size and function. 3. There was no significant valve pathology seen. Interpretation: 2-D, spectral and color flow Doppler echocardiography were performed. The image quality was adequate. The patient was in a sinus tachycardia with heart rates in the 100s during the test. Chambers: The left ventricle is normal in size. There is mild to moderate concentric left ventricular hypertrophy. The left ventricular systolic function was normal with an estimated resting ejection fraction of 60%. No regional wall motion abnormalities were seen. There is mild left ventricular diastolic dysfunction. The right ventricle is normal in size and function. The atria appear to be normal in size. There was no evidence for an atrioseptal defect or a patent foramen ovale by color flow Doppler interrogation of the interatrial septum. Valves: The aortic valve is trileaflet. There is mild aortic sclerosis. The mitral valve is normal in structure and function. Trace mitral regurgitation was seen. The tricuspid valve is normal in structure and function. There was trace tricuspid regurgitation. Given the inadequate tricuspid regurgitation jet an estimate of the pulmonary artery systolic pressure could not be made. The pulmonic valve was normal in appearance. Great Vessels: All examined segments of the aorta were normal in size. The inferior vena cava is normal in size and collapsibility suggestive of a normal central venous pressure. Pericardium: There was no pericardial effusion. MEASUREMENTS AND CALCULATIONS 2-D Measurements and LV Function: RV -- cm(d) Aortic Valve Tricuspid Valve LV 5.0 cm(d) Vmax -- m/s TV Mean PG -- mmHg LV 3.4 cm(s) VTI -- m TR -- +RAP IVS 1.4 cm(d) LVOT Vmax -- m/s LVPW 1.5 cm(d) LVOT VTI -- m AO 3.3 cm(d) Pulmonary Valve LA 3.9 cm(s) BOAZ(V) -- cm?? PV Peak Velocity -- m/s LA Vol. -- BOAZ(I) -- cm?? PV Mean -- LVOT 2.0 Max PG -- mmHg ASC AO 3.0 Mean PG -- mmHg Diastology CO 5.5 Dim Index -- E/A 0.7 E/e' 12.5 DT: -- Mitral Valve MVA -- cm?? RA 13.4 cm?? MVA(p 1/2 t) -- msec MV Mean PG -- mmHg ERO -- Tatyana Christian RN - 11/29/2013 2:38 PM CDT Warm transferred to Dominique. She will try and obtain results while pt on the line. Karly Olivera - 11/29/2013 2:34 PM CDT calling back to see if results are available Maximilian Ag - 11/27/2013 4:58 PM CDT To DA for results of ECHO done today at 3pm Send results to primary to address Ivelisse Krishnan - 11/27/2013 4:56 PM CDT Lab/Radiology Results Primary Care Provider: Gagandeep Hinojosa MD What test result is needed? Echocardiogram When and where was test done? 11/27/13 at [place] Patient has questions on the results and if he should have any work restrictions. Please advise. Who ordered the test? Gagandeep Hinojosa MD documented in this encounter Plan of Treatment Not on filedocumented as of this encounter Visit Diagnoses Not on filedocumented in this encounter Care Teams Architectural Technician Relationship Specialty Start Date End Date Gagandeep Hinojosa MD PCP - General 05/17/12 [address] [place] [address] Vane Zarate Psychiatrist Psychiatry 03/22/12 documented as of this encounter
--- OUTSIDE RECORDS SUMMARY | 2022-02-12 12:11 | XMS_ITS | Encounter Summary ---
:1970 Author Organization [employer] Address [address] [place] [address] Care Team Providers Name Role Phone Gagandeep Hinojosa MD Primary Care Provider Reason for Visit Reason Comments Diabetes Encounter Details Date Type Department Care Team Description 08/22/2014 Office Visit Gagandeep Storm Type II or unspecified type diabetes mellitus without mention of complication, uncontrolled (Primary Dx); Romario Rubio MD Tobacco use disorder; [address] [facility] Obesity, unspecified; [place] [address] Av ASHD (arteriosclerotic heart disease) [phone] [place], [place] [address] Social History Tobacco Use Types Packs/Day Years Used Date Smoking Tobacco: Never Assessed Sex Assigned at Date Recorded Not on file documented as of this encounter Last Filed Vital Signs Vital Sign Reading Time Taken Comments Blood Pressure 112/72 08/22/2014 1:30 PM CDT Pulse 84 08/22/2014 1:30 PM CDT Temperature - - Respiratory Rate - - Oxygen Saturation - - Inhaled Oxygen Concentration - - Weight 108.4 kg (239 lb) 08/22/2014 1:30 PM CDT Height - - Body Mass Index 34.29 02/14/2014 12:57 PM CDT documented in this encounter Patient Instructions Patient InstructionsGagandeep Hinojosa MD - 08/22/2014 1:52 PM CDT My Diabetes at a Glance Aspirin Use Y/N A1C % Blood Pressure mm/Hg LDL Cholesterol mg/dL Tobacco Use Y/N Eye Exam Foot ExamUrine Microalbumin Most Recent Results Yes 8.9 112/72 51 Yes abnormal normal 129 Prior Results Yes 11.0 118/77 51 Yes abnormal normal 129 Your Goal 81 milligrams a day or [...] encounter Progress Notes Gagandeep Hinojosa MD - 08/22/2014 1:57 PM CDT SUBJECTIVE: 44 y.o. male presents [...] years. He quit smokeless tobacco use about 21 months ago. Eye exam: Patient is up-to-date with eye exam. Patient does have a history of retinopathy. No blurryor double vision Foot exam: Patient does not [...] is stopping simvastatin. 90 tablet 3 ??? [DISCONTINUED] clopidogrel (PLAVIX) 75 mg tablet Take 1 [...] succinate (TOPROL-XL) 50 mg 24 hr tablet TAKE 1 TABLET BY MOUTH DAILY 90 tablet 1 ??? omega-3 fatty acids-fish [...] spasm OBJECTIVE: Vital Signs: BP 112/72 Pulse 84 Wt 239 lb (108.41 kg) General: Alert, Oriented, NAD Head: Normocephalic. [...] Component Value Date A1C 10.4* 07/13/2013 MICROALBUR 129.0 05/21/2014 CREA 0.8 05/21/2014 Lab Results Component Value Date CHOLESTEROL 152 05/21/2014 HDL 28* 05/21/2014 LDL 51 05/21/2014 TRIGLYCERIDE 367* 05/21/2014 Lab Results Component Value Date ALT 20 03/07/2013 AST 25 07/13/2013 HGB A1C Date Value Ref Range Status 07/13/2013 10.4* 4.0 - 5.6 % Final Hemoglobin A1CRM Date Value Ref Range Status 11/25/2010 10.0* 0.0-6.0 % Final Hemoglobin A1C Rapid Date Value Ref Range Status 08/22/2014 8.9* 4.0 - 5.6 % Final The Rapid A1c test is designed for monitoring patients with an established diagnosis of diabetes mellitus. The rapid method is not suitable to establish the intial diagnosis of diabetes melitus. Hemoglobin A1C, POC Date Value Ref Range Status 07/06/2011 10.6* 6.0 % Final Lab Results Component Value Date/Time HGB A1C 10.4* 07/13/2013 1039 Hemoglobin A1CRM 10.0* 11/25/2010 1618 Hemoglobin A1C Rapid 8.9* 08/22/2014 1313 Hemoglobin A1C, POC 10.6* 07/06/2011 1650 No results found for this basename: GLUF Lab Results Component Value Date CL 95* 05/21/2014 ASSESSMENT: 1. Type 2 diabetes, uncontrolled 2. Hypertension, controlled 3. Hyperlipidemia, controlled PLAN: 1. Money more available for insulin. A1c improving The patient was discharged ambulatory and in stable condition. Diabetes measures: A1c Due: 3 months Foot Exam: 3months Eye exam: January Cholesterol: 6 months Electrolytes: NA UMAR: 6 months Aspirin: yes Tobacco: yes documented in this encounter Plan of Treatment Not on filedocumented as of this encounter Visit Diagnoses Diagnosis Type II or unspecified type diabetes jasen litus without mention of complication, uncontrolled - Primary Tobacco use disorder (HRC) Tobacco use disorder Obesity, unspecified (HRC) Obesity, unspecified ASHD (arteriosclerotic heart disease) (H RC) Coronary atherosclerosis of unspecified type of vessel, [place] or graft documented in this encounter Care Teams Local Company Flatbed Truck Driver Relationship Specialty Start Date End Date Gagandeep Hinojosa MD PCP - General 05/17/12 [address] [facility] [place] [address] Vane Zarate Psychiatrsamantha Psychiatry 03/22/12 documented as of this encounter
--- OUTSIDE RECORDS SUMMARY | 2022-02-12 12:11 | XMS_ITS | Encounter Summary ---
:1970 Author Organization [email or web address] Address [address] [place] [address] Care Team Providers Name Role Phone Gagandeep Hinojosa MD Primary Care Provider Encounter Details Date Type Department Care Team Description 08/22/2014 Lab Visit [facility] Type II or unspecified type 14[address] [facility] . diabetes mellitus without [place] [address] mention of complication, uncontrolled Social History Tobacco Use Types Packs/Day Years Used Date Smoking Tobacco: Never Assessed Sex Assigned at Date Recorded Not on file documented as of this encounter Plan of Treatment Not on filedocumented as of this encounter Procedures Procedure Name Priority Date/Time Associated Diagnosis Comme nts ALBUMIN/CREAT RATIO Routine 08/22/2014 2:05 PM Type II or Re sults for this CDT unspecified type procedure a re in diabetes mellitus the result s without mention of section. complication, uncontrolled (HRC) HEMOGLOBIN A1C, Routine 08/22/2014 1:13 PM Type II or Result s for this RAPID CDT unspecified type procedure a re in diabetes mellitus the result s without mention of section. complication, uncontrolled (HRC) documented in this encounter Results (ABNORMAL) Microalb/Creat Ratio (08/22/2014 2:05 PM CDT) [facility] Method Time Signature Microalbumin 42.5 mg/L HP CONVERSION Urine U Creat Random 140 mg/dL HP CONVERSION Microalbumin/Cre 30.4 (H) 0.0 - HP CONVERSION atinine Ratio 30.0 Specimen Anatomical Collection Method Collection Time Receive d Time (Source) Location / / Volume Laterality 08/22/2014 2:05 PM 5 7:38 CDT PM CDT Narrative HP CONVERSION - 08/22/2014 8:39 PM CDT Performed at [facility], [address] [place] [address] Gagandeep Hinojosa MD LAB_1 Performing Organization Address [facility] Phon e Number HP CONVERSION (ABNORMAL) HEMOGLOBIN A1C, RAPID (08/22/2014 1:13 PM CDT) Analysis Performed At [facility] Time Signature Hemoglobin A1C 8.9 (H) 4.0 - 5.6 HP CONVERSION Rapid % Comment: The Rapid A1c test is designed for monit oring patients with an established diagnosis of diabetes jasen litus. ??The rapid method is not suitable to establish the intial diagnosis of diabetes melitus. Specimen Anatomical Collection Method Collection Time Receive d Time (Source) Location / / Volume Laterality 08/22/2014 1:13 PM 5 1:13 CDT PM CDT Narrative HP CONVERSION - 08/22/2014 1:24 PM CDT Performed at [facility], [address] [place] [address] Gagandeep Hinojosa MD LAB_1 Performing Organization Address [facility] Phon e Number HP CONVERSION documented in this encounter Visit Diagnoses Diagnosis Type II or unspecified type diabetes jasen litus without mention of complication, uncontrolled documented in this encounter Care Teams Vp Biology Relationship Specialty Start Date End Date Gagandeep Hinojosa MD PCP - General 05/17/[address] [place] [id number] Vane Zarate Psychiatrsamantha Psychiatry 03/22/12 documented as of this encounter
--- OUTSIDE RECORDS SUMMARY | 2022-02-12 12:11 | XMS_ITS | Encounter Summary ---
:1970 Author Organization On [facility] of [facility] Address [address] [place] [address] Care Team Providers Name Role Phone Gagandeep Hinojosa MD Primary Care Provider Encounter Details Date Type Department Care Team Description 08/27/2014 Notes/Orders [facility] Gagandeep Hinojosa MD [address] [facility] . [address] [place] [address] [place] [address] [phone] (Wo rk) Social History Tobacco Use Types Packs/Day Years Used Date Smoking Tobacco: Never Assessed Sex Assigned at Date Recorded Not on file documented as of this encounter Plan of Treatment Not on filedocumented as of this encounter Visit Diagnoses Not on filedocumented in this encounter Care Teams Bottom Crane Operator Relationship Specialty Start Date End Date Gagandeep Hinojosa MD PCP - General 05/17/12 14[address] [facility] [place] [address] Vane Zarate Psychiatrsamantha Psychiatry 03/22/12 documented as of this encounter
--- OUTSIDE RECORDS SUMMARY | 2022-02-12 12:11 | XMS_ITS | Encounter Summary ---
:1970 Author Organization [email or web address] Address [address] [address] Care Team Providers Name Role Phone Gagandeep Hinojosa MD Primary Care Provider Encounter Details Date Type Department Care Team Description 11/27/2013 Hospital Encounter Heart & Vascular Other nonspecific Center Echocardiogra m abnormal cardiovascular [address] system function study [place], [place] ([place] Dx) [id number] Social History Tobacco Use Types Packs/Day Years Used Date Smoking Tobacco: Never Assessed Sex Assigned at Date Recorded Not on file documented as of this encounter Medications at Time of Discharge Medication Sig Dispensed Refills Start End Date Date aspirin 81 MG chewable TAKE 1 TABLET BY MOUTH 100 tablet 1 0 tablet DAILY . 2 carvedilol (AKA COREG) TAKE 1 TABLET BY MOUTH 60 tablet 4 0 01/10/20 6.25 MG tablet TWICE DAILY WITH MEALS 4 14 insulin isophane (AKA Inject 80 Units 40 mL 5 01/17/20 NOVOLIN NPH,HUMULIN N) subcutaneously 2 times 3 14 100 UNIT/ML daily (before meals). injectionIndications: BREAKFAST AND DINNER Type II or unspecified type diabetes mellitus without mention of complication, uncontrolled insulin regular (HUMULIN Inject 76 Units 40 mL 5 01/17/20 R) 100 UNIT/ML subcutaneously 2 times 3 14 injectionIndications: daily (before meals). Type II or unspecified BREAKFAST AND DINNER type diabetes mellitus without mention of complication, uncontrolled Insulin Syringe-Needle Inject 1 each 500 each 3 01/17/20 U-100 (INSULIN SYRINGE subcutaneously 4 times 3 14 1CC/28G) 28G X 1/2 1 ML daily. lisinopril (AKA ZESTRIL) Take 1 tablet by mouth 90 tablet 3 01/17/20 5 MG tabletIndications: daily (every 24 hours). 3 14 Type II or unspecified type diabetes mellitus without mention of complication, uncontrolled simvastatin (AKA ZOCOR) Take 1 tablet by mouth 90 tablet 3 01/10/20 80 MG tabletIndications: nightly. 4 14 Hyperlipidemia LDL goal < 70 (HRC) divalproex (DEPAKOTE) Take 2,000 mg by mouth 0 04/02/20 500 MG enteric coated DAILY MORNING LAB. Do 1 16 tablet not cut/crush/chew. Take with food. insulin pen needle 31G X Inject 1 Needle 200 each 0 12/10/19 8 MM (PEN NEEDLES subcutaneously. 250.02 2 15 31GX5/16)Indications: Use new needle each Type II or unspecified injection, 4 daily type diabetes mellitus without mention of complication, uncontrolled omega-3 fatty acids Take 2 capsules by mouth 360 capsule 3 0 07/10/19 (FISH OIL) 1000 MG 2 times daily. 2 17 capsuleIndications: Indications: Hypertriglyceridemia HYPERTRIGLYCERIDEMIA (HRC) risperiDONE (RISPERDAL) Take 4 mg by mouth daily 0 08/05/19 4 MG tablet (every 24 hours). 1 18 documented as of this encounter Progress Notes Helen Reynolds - 11/27/2013 11:59 PM CDTEncounter addended by: Helen Reynolds on: 12/04/2013 10:42 AM
Documentation filed: Flowsheet VN, Result Entry documented in this encounter Plan of Treatment Not on filedocumented as of this encounter Procedures Procedure Name Priority Date/Time Associated Diagnosis Comme nts OUTREACH Routine 11/27/2013 10:31 Other nonspecific Result s for this ECHOCARDIOGRAM AM CDT abnormal procedure are in cardiovascular system the re sults function study section. documented in this encounter Results Outreach Echocardiogram (11/27/2013 10:31 AM CDT) Specimen (Source) Anatomical Location Collection Method / Collectio n Time Received Time / Laterality Volume Narrative HP CONVERSION - 11/27/2013 10:31 AM CDT See results in [place]. Gagandeep Hinojosa MD PN ECHO ORDERABLES Performing Organization Address City/State/ZIP Code Phon e Number HP CONVERSION documented in this encounter Visit Diagnoses Diagnosis Other nonspecific abnormal cardiovascula r system function study - Primary documented in this encounter Care Teams Warehouse Administrator Relationship Specialty Start Date End Date Gagandeep Hinojosa MD PCP - General 05/17/[address] [place], [place] [address] [id number] Vane Zarate Psychiatrist Psychiatry 03/22/12 documented as of this encounter
--- OUTSIDE RECORDS SUMMARY | 2022-02-12 12:11 | XMS_ITS | Encounter Summary ---
:1970 Author Organization [employer] Address [address] [place] [address] Care Team Providers Name Role Phone Gagandeep Hinojosa MD Primary Care Provider Encounter Details Date Type Department Care Team Description 05/21/2014 Lab Visit [facility] Type II or unspecified type [address] diabetes mellitus without KATIANA Vigil [id number] mention of complication, uncontrolled Social History Tobacco Use Types Packs/Day Years Used Date Smoking Tobacco: Never Assessed Sex Assigned at Date Recorded Not on file documented as of this encounter Plan of Treatment Not on filedocumented as of this encounter Procedures Procedure Name Priority Date/Time Associated Diagnosis Comme nts ALBUMIN/CREAT RATIO Routine 05/21/2014 12:21 Type II or Resu lts for this PM DICTAPHONE OPERATOR unspecified type procedure a re in diabetes mellitus the result s without mention of section. complication, uncontrolled (HRC) HEMOGLOBIN A1C, Routine 05/21/2014 12:06 Type II or Results for this RAPID PM DICTAPHONE OPERATOR unspecified type procedure a re in diabetes mellitus the result s without mention of section. complication, uncontrolled (HRC) LIPID PANEL AND Routine 05/21/2014 12:06 Type II or Results for this DIRECT LDL(IF PM DICTAPHONE OPERATOR unspecified type procedure are in NEEDED) diabetes mellitus the result s without mention of section. complication, uncontrolled (HRC) CREATININE / GFR Routine 05/21/2014 12:06 Type II or Results for this PM DICTAPHONE OPERATOR unspecified type procedure a re in diabetes mellitus the result s without mention of section. complication, uncontrolled (HRC) ELECTROLYTE PANEL Routine 05/21/2014 12:06 Type II or Result s for this PM DICTAPHONE OPERATOR unspecified type procedure a re in diabetes mellitus the result s without mention of section. complication, uncontrolled (HRC) documented in this encounter Results (ABNORMAL) Microalb/Creat Ratio (05/21/2014 12:21 PM DICTAPHONE OPERATOR) [facility] gist Method Time Signature Microalbumin 129.0 mg/L HP CONVERSION Urine U Creat Random 142 mg/dL HP CONVERSION Microalbumin/Cre 90.8 (H) 0.0 - HP CONVERSION atinine Ratio 30.0 Specimen Anatomical Collection Method Collection Time Receive d Time (Source) Location / / Volume Laterality 05/21/2014 12:21 05/21/2014 3:33 PM DICTAPHONE OPERATOR PM DICTAPHONE OPERATOR Narrative HP CONVERSION - 05/21/2014 4:13 PM DICTAPHONE OPERATOR [place] [address] Gagandeep Hinojosa MD LAB_1 Performing Organization Address [facility] Phon e Number HP CONVERSION Creatinine / GFR (05/21/2014 12:06 PM DICTAPHONE OPERATOR) athologist Signature Creatinine 0.8 0.4 - 1.3 [...] Time (Source) Location / / Volume Laterality 05/21/2014 12:06 05/21/2014 5:17 PM DICTAPHONE OPERATOR PM DICTAPHONE OPERATOR Narrative HP CONVERSION - 05/21/2014 6:27 PM DICTAPHONE OPERATOR Performed at [facility], [address] [place] [address] Gagandeep Hinojosa MD LAB_1 Performing Organization Address [facility] Phon e Number HP CONVERSION (ABNORMAL) Electrolyte Panel (05/21/2014 12:06 PM DICTAPHONE OPERATOR) athologist Signature Sodium 133 (L) 137 - 147 HP CONVERSION mEq/L Potassium 4.4 3.5 - 5.2 HP CONVERSION mEq/L Chloride 95 (L) 98 - 110 HP CONVERSION mEq/L Bicarbonate 27 23 - 33 HP CONVERSION mmol/L Specimen Anatomical Collection Method Collection Time Receive d Time (Source) Location / / Volume Laterality 05/21/2014 12:06 05/21/2014 5:17 PM DICTAPHONE OPERATOR PM DICTAPHONE OPERATOR Narrative HP CONVERSION - 05/21/2014 6:27 PM DICTAPHONE OPERATOR Performed at [facility], [address] [place] [address] Gagandeep Hinojosa MD LAB_1 Performing Organization Address City/[facility] Phon e Number HP CONVERSION (ABNORMAL) Lipid Panel and Direct LDL(If Needed) (05/21/2014 12:06 PM DICTAPHONE OPERATOR) [facility] Amicrobe Method Time Signature Cholesterol 152 0 - 200 HP CONVERSION mg/dL Triglycerides 367 (H) 0 - 149 HP CONVERSION mg/dL HDL Cholesterol 28 (L) >39 mg/dL HP CONVERSION Cholesterol/HDL 5.4 HP CONVERSION Ratio Screen LDL Calculated 51 19 - 130 HP CONVERSION mg/dL Length Of Fast na HP CONVERSION Specimen Anatomical Collection Method Collection Time Receive d Time (Source) Location / / Volume Laterality 05/21/2014 12:06 05/21/2014 5:17 PM DICTAPHONE OPERATOR PM DICTAPHONE OPERATOR Narrative HP CONVERSION - 05/21/2014 6:27 PM DICTAPHONE OPERATOR Performed at [facility], [address] [place] [address] Gagandeep Hinojosa MD LAB_1 Performing Organization Address [facility] Phon e Number HP CONVERSION (ABNORMAL) HEMOGLOBIN A1C, RAPID (05/21/2014 12:06 PM DICTAPHONE OPERATOR) [facility] Method Time Signature Hemoglobin A1C 11.0 (H) 4.0 - 5.6 HP CONVERSION Rapid % Comment: The Rapid A1c test is designed for monit oring patients with an established diagnosis of diabetes jasen litus. ??The rapid method is not suitable to establish the intial diagnosis of diabetes melitus. Specimen Anatomical Collection Method Collection Time Receive d Time (Source) Location / / Volume Laterality 05/21/2014 12:06 05/21/2014 PM DICTAPHONE OPERATOR 12:06 PM DICTAPHONE OPERATOR Narrative HP CONVERSION - 05/21/2014 12:22 PM DICTAPHONE OPERATOR Performed at [facility], [address] [place] [address] Gagandeep Hinojosa MD LAB_1 Performing Organization Address City/State/ZIP Code Phon e Number HP CONVERSION documented in this encounter Visit Diagnoses Diagnosis Type II or unspecified type diabetes jasen litus without mention of complication, uncontrolled documented in this encounter Care Teams Picker/Puller Relationship Specialty Start Date End Date Gagandeep Hinojosa MD PCP - General 05/17/12 [address] [place] [address] Vane Zarate Psychiatrsamantha Psychiatry 03/22/12 documented as of this encounter
--- OUTSIDE RECORDS SUMMARY | 2022-02-12 12:11 | XMS_ITS | Encounter Summary ---
:1970 Author Organization [employer] Address [address] [place] [address] Care Team Providers Name Role Phone Gagandeep Hinojosa MD Primary Care Provider Reason for Visit Reason Comments Appt. Needed Encounter Details Date Type Department Care Team Description 07/12/2013 Telephone [facility] Gagandeep Hinojosa MD Appt. Needed [address] [facility] . [address] [place] [address] [place] [address] [phone] (Wo rk) Social History Tobacco Use Types Packs/Day Years Used Date Smoking Tobacco: Never Assessed Sex Assigned at Date Recorded Not on file documented as of this encounter Nursing Notes Cordelia Jerome - 07/12/2013 4:29 PM CDT 1st call LM to call [phone] to schedule overdue A1c/FL and diabetes check with Dr Hinojosa (due May). OIE documented in this encounter Plan of Treatment Not on filedocumented as of this encounter Visit Diagnoses Not on filedocumented in this encounter Care Teams Hematology Technologist Relationship Specialty Start Date End Date Gagandeep Hinojosa MD PCP - General 05/17/12 1415 [facility] [place], [place] [address] Vane Zarate Psychiatrist Psychiatry 03/22/12 documented as of this encounter
--- OUTSIDE RECORDS SUMMARY | 2022-02-12 12:11 | XMS_ITS | Encounter Summary ---
:1970 Author Organization [employer] Address [address] [place] [address] Care Team Providers Name Role Phone Gagandeep Michaud MD Primary Care Provider Reason for Visit Reason Comments Follow-up Encounter Details Date Type Department Care Team Description 01/09/2014 Office Visit [facility] Vanessa Ram, Coronary atherosclerosis of unspecified type of vessel, [place] or graft (Primary Dx); [address] (arteriosclerotic heart disease); [address] [place], old; [place] [address] Blvd Hyperlipidemia LDL goal < 70; [phone] [place], [place] Type II or unspecified type diabetes mellitus without mention of complication, uncontrolled; [address] Tobacco use disorder; [phone] Hypertriglyceri demia; (Work) Tachycardia, unspecified Social History Tobacco Use Types Packs/Day Years Used Date Smoking Tobacco: Never Assessed Sex Assigned at Date Recorded Not on file documented as of this encounter Last Filed Vital Signs Vital Sign Reading Time Taken Comments Blood Pressure 102/60 01/09/2014 2:20 PM CDT Pulse 120 01/09/2014 2:20 PM CDT Temperature - - Respiratory Rate - - Oxygen Saturation - - Inhaled Oxygen Concentration - - Weight 102.1 kg (225 lb) 01/09/2014 2:20 PM CDT Height 177.8 cm (5' 10) 01/09/2014 2:20 PM CDT Body Mass Index 32.28 01/09/2014 2:20 PM CDT documented in this encounter Patient Instructions Patient InstructionsVanessa Ram PA-C - 01/09/2014 3:09 PM CDT 1. When you finish simvastatin, start atorvastatin 80 mg daily. Check labs in 6 weeks. Please contact the lab at [phone] to schedule a lab appointment at [facility] after a 12 hour fast mid May. They will have the lab orders when you get there, so you are not responsible to bring a lab slip. 2. Call Keri FINCH [phone] if you develop abdominal pain, nausea or vomiting. Consider check triglycerides and pancreatitis labs sooner. Controlling your blood sugar levels will help lower this number. Continue with fish oil. 3. Stop Coreg 6.25 mg twice a day, and start Toprol 50 mg daily at night. 4. Start Plavix for 30 days. documented in this encounter Progress Notes Vanessa Ram PA-C - 01/10/2014 9:31 AM CDT Progress Notes signed by Vanessa Ram PA-C at 01/17/14 1538 Author: Vanessa Ram PA-C Service: (none) Author Type: Physician Hvac Technician Residential Filed: 01/17/14 1538 Note Time: 01/10/14 1053 Status: Signed Marine Equipment Engineer: Vanessa Ram PA-C (Physician Hvac Technician Residential) NAME: SHARLENE VARNER MR#: [id number] CSN: [id number] AUTHENTICATING CLINICIAN: Vanessa Ram PA-C CONFIRM #: [id number] LOC: 3205 CLINIC PROGRESS NOTE DATE OF VISIT: 01/09/2014 : 1970 CHIEF COMPLAINT: Coronary artery disease. Mr. Varner is a pleasant, 43-year-old gentleman who presents to the [facility]. He was recently discharged from [facility] on December 19, after presenting withprolonged chest discomfort. It was a 9/10 and was made worse by pressing on his chest. It was not positional. He had an admission a few weeks prior, with normal myocardial perfusion imaging at that time. He had borderline troponin testing last month. His cardiac history is significant for an inferior wall myocardial infarction with a bare-metal stent in April 2011. On his angiogram in 2012, he had enoi-qs-clmxjfyq diffuse disease, specifically in the distal RCA and diagonal lesions, but no major co ronary stenosis. He was advised to start Plavix for 30 days, as well as switch from Coreg to Toprol, in light of his tachycardia that may have been contributing to his symptoms and elevated troponin. He felt he did notneed to make those changes, as he already had the other medications at home. Since hospital discharge, he has had no further episodes of chest pain. He does not engage in a regular exercise program, but denies shortness of breath with activities of daily living or walking into the clinic. He continuesto smoke 1 pack per day and is not motivated to quit. He has tried gum and patches in the past. He has been able to smoke for 6 months at that time, and at that time he was able to quit cold turkey. He is interested in a prescription for Cialis, which he has been using for some time, and has been getting his prescription from the psychiatrist's office. He has an allergic reaction, he feels, to nitroglycerin with nausea, so he has not been taking that.He requested a prescription for Cialis to be faxed to his psychiatrist so he can receive free samples. MEDICATIONS: Reviewed and updated in [facility]. Cardiac medications include aspirin 81 mg daily, simvastatin 80 mg daily, currently Coreg 6.25 mg daily, lisinopril 5 mg daily, omega-3 two capsules twice a day and Ejuuxh51 mg p.r.n. ADVERSE DRUG REACTIONS/ALLERGIES: Reviewed and updated in [facility]. REVIEW OF SYSTEMS: A complete 12-point review of systems was obtained, and is negative, otherwise as mentioned above. OBJECTIVE: VITAL SIGNS: Blood pressure is 102/60 in the right arm with a large cuff. Heart rate is 120. Apical pulse is 116. Weight in the clinic is 225. GENERAL: Mr. Varner is a pleasant male in no acute distress, oriented x3. Normal affect. LUNGS: Clear to auscultation bilaterally. CARDIOVASCULAR: Regular rate and rhythm, with a 2/6 systolic murmur. No JVD or HJR at a 45-degree angle. No carotid bruits noted. ABDOMEN: Soft, nontender. No evidence of hepatomegaly. EXTREMITIES: No edema, with strong pedal pulses. Recent laboratory data at [facility] on December 19: White blood cells 6.2, hemoglobin 15.9, platelets 205. Potassium 4.2, BUN 13, creatinine 0.8. Total cholesterol 199, triglycerides 1274, HDL of 19,non-HDL cholesterol 180. Troponin peaked at 0.034, with normal less than 0.034. Nuclear stress test from November 21 did not show any ischemia. Echocardiogram performed on November 27, 2013 showed an ejection fraction of 60%. Normal left ventricular size with rdjg-nc-faydyiqb concentric left ventricular hypertrophy. No regional wall [...] a bare-metal stent in April 2011. b. Zhvh-pp-qtivvkkh diffuse nonobstructive distal disease on coronary angiogram on October 27, 2012. Thepreviously deployed stent in the posterior descending branch of the right coronary artery was patent, with yztf-qx-zkgunoah in-stent restenosis. This did not appear to be flow limiting. c. He has not started Plavix for 30 days as recommended for his borderline troponin elevation. He continues on aspirin and a moderate dose statin with simvastatin. He is on a beta-cordell but has not switched to Toprol as recommended by Dr. Norris's recent hospital consultation. d. Preserved left ventricular function. No inducible ischemia on recent evaluation in October 2013. No current symptoms of angina. 2. Hypertension. Blood pressure readings to goal. 3. Hyperlipidemia. We reviewed the new [place] [employer] guidelines that outlined that withhis risk factors, he would benefit from a more potent statin. Significantly elevated triglycerides. No symptoms of abdominal pain or pancreatitis with his triglycerides over 1000. 4. Obesity. 5. Diabetes mellitus. 6. Current tobacco abuse, and he is not motivated to quit despite discussing several options for medical therapy. 7. Decreased compliance in the past due to financial constraints. PLAN: 1. He was advised that when he finishes his simvastatin in about a week, he will start atorvastatin 80 mg daily. We reviewed that this is now generic and may be more affordable, since the last time he was on Lipitor when the cost was prohibitive. Orders were placed to check labs in 6-8 weeks to reviewhis cholesterol on the atorvastatin. He was advised to contact the clinic sooner if the cost is not reasonable for him. 2. Orders were placed also, to check labs next week in light of his significantly elevated triglycerides. We will also check his amylase, lipase and thyroid function. 3. He is advised to stop his Coreg in light of his tachycardia and hypotension, and start Toprol 50 mg daily at night for additional heart rate control. 4. Prescription was also sent to start Plavix for 30 days in light of his recent hospitalization with borderline troponin. He will continue on aspirin indefinitely. 5. He was encouraged to contact our clinic if he experiences dizziness, lightheadedness or abdominalpain. Clinic followup with Dr. Michaud as scheduled next week. 6. We also discussed treatment for erectile dysfunction. We reviewed my recommendation that he be tom shorter-acting medications such as Viagra, but he reports his preference to continue the Cialis. We reviewed that if he did have symptoms of chest pain, his treatment would be limited and would not be able to use nitroglycerin. He reports an adverse reaction to nitroglycerin anyway and that he woulddecline that treatment. My total time spent with the patient was over 40 minutes, with 30 minutes spent in counseling, reviewing medication changes also side effects, recent lab results, imaging studies, the importance of medication compliance and communicating with our office if he is not able to do that. CC: VALERI NORRIS MD [address] [place] [address] GAGANDEEP MICHAUD MD [address] [place] [address] LJR:MEDQ C: CONFIRM #: [id number] documented in this encounter Plan of Treatment Not on filedocumented as of this encounter Visit Diagnoses Diagnosis Coronary atherosclerosis of unspecified type of vessel, [place] or graft (HRC) - Primary Coronary atherosclerosis of unspecified type of vessel, [place] or graft ASHD (arteriosclerotic heart disease) (H RC) Coronary atherosclerosis of unspecified type of vessel, [place] or graft [place], old (HRC) Old myocardial infarction Hyperlipidemia LDL goal < 70 (HRC) Other and unspecified hyperlipidemia Type II or unspecified type diabetes jasen litus without mention of complication, uncontrolled Tobacco use disorder (HRC) Tobacco use disorder Hypertriglyceridemia (HRC) Pure hyperglyceridemia Tachycardia, unspecified documented in this encounter Care Teams Kiln Stacker Relationship Specialty Start Date End Date Gagandeep Michaud MD PCP - General 05/17/12 [facility] [facility] [place] [address] Vane Zarate Psychiatrist Psychiatry 03/22/12 documented as of this encounter
--- OUTSIDE RECORDS SUMMARY | 2022-02-12 12:11 | XMS_ITS | Encounter Summary ---
:1970 Author Organization [employer] Address [address], [place] [address] Care Team Providers Name Role Phone Gagandeep Hinojosa MD Primary Care Provider Encounter Details Date Type Department Care Team Description 11/21/2013 Hospital Encounter Heart & Vascular Chest pain, unspecified (Primary Dx); Center Nuclear ASHD (arterio sclerotic heart disease) Cardiology [facility] [place] [address] Social History Tobacco Use Types [...] 1 18 documented as of this encounter Plan of Treatment Not on filedocumented as of this encounter Procedures Procedure Name Priority Date/Time Associated Diagnosis Comme nts OUTREACH NUCLEAR Routine 11/21/2013 3:02 PM ASHD Resul ts for this STUDY CDT (arteriosclerotic procedure are in heart disease) the results Chest pain, section. unspecified documented in this encounter Results Outreach Nuclear Study (11/21/2013 3:02 PM CDT) Specimen (Source) Anatomical Location Collection Method / Collectio n Time Received Time / Laterality Volume Narrative HP CONVERSION - 11/21/2013 3:02 PM CDT See results in [employer]. Nathan Carrera MD PN CARDIAC SERVICES ORDERABL ES Performing Organization Address City/State/ZIP Code Phon e Number HP CONVERSION documented in this encounter Visit Diagnoses Diagnosis Chest pain, unspecified - Primary ASHD (arteriosclerotic heart disease) (H RC) Coronary atherosclerosis of unspecified type of vessel, [place] or graft documented in this encounter Care Teams Electric Meter Inspector Relationship Specialty Start Date End Date Gagandeep Hinojosa MD PCP - General 05/17/12 14[address] [facility] [place] [id number] Vane Zarate Psychiatrsamantha Psychiatry 03/22/12 documented as of this encounter
--- OUTSIDE RECORDS SUMMARY | 2022-02-12 12:11 | XMS_ITS | Encounter Summary ---
:1970 Author Organization [employer] Address [address], [place] [address] Care Team Providers Name Role Phone Gagandeep Hinojosa MD Primary Care Provider Encounter Details Date Type Department Care Team Description 04/10/2013 Hospital Encounter Heart & Vascular Chest pain, unspecified Center Nuclear (Primary Dx) Cardiology [address] [facility] [place] [address] Social History Tobacco Use Types Packs/Day Years Used Date Smoking Tobacco: Never Assessed Sex Assigned at Date Recorded Not on file documented as of this encounter Medications at Time of Discharge Medication Sig Dispensed Refills Start End Date Date aspirin 81 MG chewable TAKE 1 TABLET BY MOUTH 100 tablet 1 0 tablet DAILY . 2 insulin isophane (AKA Inject 80 Units 40 [...] mention of complication, uncontrolled simvastatin (AKA ZOCOR) TAKE 1 TABLET BY MOUTH 90 tablet 2 07/21/19 80 MG tablet EVERY NIGHT 3 14 carvedilol (AKA COREG) TAKE 1 TABLET BY MOUTH 60 tablet 3 0 08/04/19 6.25 MG tablet TWICE DAILY WITH MEALS 3 14 divalproex (DEPAKOTE) Take 2,000 mg by mouth [...] Procedure Name Priority Date/Time Associated Diagnosis Comme [facility] OUTREACH NUCLEAR Routine 04/10/2013 4:12 PM Chest pain, Resul ts for this STUDY STAVE LOG CUT OFF SAW OPERATOR unspecified procedure are i n the results section. documented in this encounter Results Outreach Nuclear Study (04/10/2013 4:12 PM STAVE LOG CUT OFF SAW OPERATOR) Specimen (Source) Anatomical Location Collection Method / Collectio n Time Received Time / Laterality Volume Narrative HP CONVERSION - 04/10/2013 4:12 PM STAVE LOG CUT OFF SAW OPERATOR See results in [facility]. Silverio Cabrera MD PN CARDIAC SERVICES ORDERABL ES Performing Organization Address City/State/ZIP Code Phon e Number HP CONVERSION documented in this encounter Visit Diagnoses Diagnosis Chest pain, unspecified - Primary documented in this encounter Care Teams Bomb Squad Commander Relationship Specialty Start Date End Date Gagandeep Hinojosa MD PCP - General 05/17/12 [address] [place] [address] Vane Zarate Psychiatrist Psychiatry 03/22/12 documented as of this encounter
--- OUTSIDE RECORDS SUMMARY | 2022-02-12 12:11 | XMS_ITS | Encounter Summary ---
:1970 Author Organization [employer] Address [address], [place] [address] Care Team Providers Name Role Phone Gagandeep Hinojosa MD Primary Care Provider Encounter Details Date Type Department Care Team Description 11/21/2013 Notes/Orders Heart & Vascular [facility]aba [facility] Card[facility] ejection fraction [address] (Primary Dx) [place] [phone] (Wo rk) Social History Tobacco Use Types Packs/Day Years Used Date Smoking Tobacco: Never Assessed Sex Assigned at Date Recorded Not on file documented as of this encounter Progress Notes Juan Daniel Caba MD - 11/23/2013 12:51 PM CDT Good afternoon. I just read his nuclear stress test. No stress induced ischemia was noted on his perfusion images. His calculated ejection fraction, however, was moderately reduced at 37%. Would recommend a transthoracic echocardiogram to confirm. Kindly feel free to let me know if you have any questions. Thanks, Mariaa Caba. Gagandeep Hinojosa MD - 11/23/2013 12:51 PM CDT Call patient. Notify him that cardiology would like him to have a plain echo. Order has been signed Dominique Hill - 11/23/2013 12:51 PM CDT left a message to call back - ext [phone] Jacqueline Vizcaino - 11/23/2013 12:51 PM CDT left message to call us back. documented in this encounter Plan of Treatment Not on filedocumented as of this encounter Visit Diagnoses Diagnosis Decreased cardiac ejection fraction - Pr imary documented in this encounter Care Teams Calculation Clerk Relationship Specialty Start Date End Date Gagandeep Hinojosa MD PCP - General 05/17/12 [address] [place] [address] Vane Zarate Psychiatrist Psychiatry 03/22/12 documented as of this encounter
--- OUTSIDE RECORDS SUMMARY | 2022-02-12 12:12 | XMS_ITS | Encounter Summary ---
:1970 Author Organization [facility] Address [address] [address] Care Team Providers Name Role Phone Gagandeep Hinojosa MD Primary Care Provider Reason for Visit Reason Comments Pharmacy Encounter Details Date Type Department Care Team Description 11/14/2012 Refill [place] [facility] Gagandeep Hinojosa MD Pharmacy [address] [facility] . [address] [facility] [place] [address] [place] [address] [phone] (Wo rk) Social History Tobacco Use Types Packs/Day Years Used Date Smoking Tobacco: Never Assessed Sex Assigned at Date Recorded Not on file documented as of this encounter Nursing Notes Ysabel Rosales B - 11/15/2012 4:[address] Hinojosa to address. DOES NOT MEET REQUIREMENTS FOR REFILL Reason: needing signed order from PCP Last visit with PCP: qualifying visit on 11/07/12 Last Labs 10/2012, creatinine, K, cholesterol Requested Prescriptions Pending Prescriptions Disp Refills ??? simvastatin (ZOCOR) 80 mg tablet [Pharmacy Med Name: SIMVASTATIN 80MG TABLETS] 90 tablet 2 Sig: TAKE 1 TABLET BY MOUTH EVERY NIGHT ??? lisinopril (PRINIVIL, ZESTRIL) 5 mg tablet 90 tablet 0 Sig: Take 1 tablet by mouth daily (every 24 hours). ??? Insulin Syringe-Needle U-100 (ULTRA-THIN II, SHORT, INS SYR) 1 mL 30 x 09/07 Syrg 500 each 3 Sig: Inject 1 each subcutaneously 4 times daily. Herlinda Lucio HUC - 11/15/2012 3:53 PM CDT Syringed pended. Please address requests for lisinopril and simvastatin then route to provider for syringes. Ysabel Rosales - 11/15/2012 3:45 PM CDT to DA. Would you please pend RX for insulin syringes. See below. Pls forward to Dr Hinojosa for PCP signature. Pt aware it may take 2 days for RX to be approved. [facility] calling where pt is waiting to get RX for insulin syringes 1mL (100 units), 30 g, 8 mm short needle. Uses Novolin N BID and Novolin R BID. Called and spoke with patient to verify that he uses 4 syringes per day. OV 11/07/12 A1c 10/26/12, 11.1 Mary Ellen Sears - 11/15/2012 3:29 PM CDT PSC Medication Issue/Refill Primary Care Provider: Gagandeep Hinojosa Patient to contact pharmacy: yes Comment: pt requesting rx Pharmacy Name & Phone #: [facility] Pharmacy Street or City: [place] Drug Name: 1ml 30 gu 8 mm short needle. Strength: unk Dose/Route/Freq: unk *ECODE documented in this encounter Plan of Treatment Not on filedocumented as of this encounter Visit Diagnoses Not on filedocumented in this encounter Care Teams Retail Selling Floor Leader Relationship Specialty Start Date End Date Gagandeep Hinojosa MD PCP - General 05/17/12 [address] [facility] [place] [address] Vane Zarate Psychiatrist Psychiatry 03/22/12 documented as of this encounter
--- OUTSIDE RECORDS SUMMARY | 2022-02-12 12:12 | XMS_ITS | Encounter Summary ---
:1970 Author Organization [facility] Address [address] [place] [address] Care Team Providers Name Role Phone Gagandeep Hinojosa MD Primary Care Provider Reason for Visit Reason Comments Appt. Needed Encounter Details Date Type Department Care Team Description 02/06/2013 Telephone [place] [facility] Gagandeep Hinojosa MD Appt. Needed [address] [facility] . [address] [facility] [place] [address] [place] [address] [phone] (Wo rk) Social History Tobacco Use Types Packs/Day Years Used Date Smoking Tobacco: Never Assessed Sex Assigned at Date Recorded Not on file documented as of this encounter Plan of Treatment Not on filedocumented as of this encounter Visit Diagnoses Not on filedocumented in this encounter Care Teams Cone Classifier Tender Relationship Specialty Start Date End Date Gagandeep Hinojosa MD PCP - General 05/17/12 [address] [place] [address] Vane Zarate Psychiatrist Psychiatry 03/22/12 documented as of this encounter
--- OUTSIDE RECORDS SUMMARY | 2022-02-12 12:12 | XMS_ITS | Encounter Summary ---
:1970 Author Organization [facility] Address [address] [place] [address] Care Team Providers Name Role Phone Gagandeep Hinojosa MD Primary Care Provider Reason for Visit Reason Comments LAB RESULTS Encounter Details Date Type Department Care Team Description 02/28/2013 Telephone [place] [facility] Gagandeep Hinojosa MD LAB RESULTS [address] [facility] . [address] [facility] [place] [address] [place] [address] [phone] (Wo rk) Social History Tobacco Use Types Packs/Day Years Used Date Smoking Tobacco: Never Assessed Sex Assigned at Date Recorded Not on file documented as of this encounter Nursing Notes Jud Curry RN - 02/28/2013 12:00 PM CST Reviewed lab letter with pt, appt made for discussion as per letter EDGE MACHINE OPERATOR Yesenia Jara - 02/28/2013 11:54 AM CST Lab/Radiology Results Primary Care Provider: Gagandeep Hinojosa What test result is needed? Labs When and where was test done? [place] on 02/14 Who ordered the test? Gagandeep Hinojosa Transferred to triage per patient request. Can be reached at [phone]. documented in this encounter Plan of Treatment Not on filedocumented as of this encounter Visit Diagnoses Not on filedocumented in this encounter Care Teams Director Of Sales And Marketing Relationship Specialty Start Date End Date Gagandeep Hinojosa MD PCP - General 05/17/12 14[address] [facility] [place] [address] Vane Zarate Psychiatrist Psychiatry 03/22/12 documented as of this encounter
--- OUTSIDE RECORDS SUMMARY | 2022-02-12 12:12 | XMS_ITS | Encounter Summary ---
:1970 Author Organization [employer] [facility] [employer] Address [address] [place] [address] Care Team Providers Name Role Phone Gagandeep Hinojosa MD Primary Care Provider Reason for Visit Reason Comments Treatment Plan Encounter Details Date Type Department Care Team Description 11/03/[address] [facility] Gagandeep Hinojosa, Treatment Plan [address] [place] [address] [address] [facility] [phone] [place], [place] [address] (Wo rk) Social History Tobacco Use Types Packs/Day Years Used Date Smoking Tobacco: Never Assessed Sex Assigned at Date Recorded Not on file documented as of this encounter Nursing Notes Melanie Smith RN - 11/03/2012 7:32 AM CDT Protocol: SHOULDER [id number] Affirmative: [1] MODERATE pain (e.g. interferes with normal activities) AND [2] present > 3 days Disposition of See PCP When Office Is Open (Within 3 Days) suggested. Pt has had shoulder pain for the past couple of days due to a shoulder pulll Has appoint set up for f/u ; Recommended no heavy lifting , supporting shoulder if movement hurts; mild ROM and f/u with hisPrimary. . IT Edwina Tomas - 11/03/2012 7:20 AM CDT Patient is set to see PCP Tuesday for Hospital Discharge for his shoulder pain, inquiring if there are any exercises that he could do to help ease the pain until then. documented in this encounter Plan of Treatment Not on filedocumented as of this encounter Visit Diagnoses Not on filedocumented in this encounter Care Teams Counter Installer Relationship Specialty Start Date End Date Gagandeep Hinojosa MD PCP - General 05/17/[address] [place] [address] [place] [address] Vane Zarate Psychiatrist Psychiatry 03/22/12 documented as of this encounter
--- OUTSIDE RECORDS SUMMARY | 2022-02-12 12:12 | XMS_ITS | Encounter Summary ---
:1970 Author Organization [employer] Address [address] [place] [address] Care Team Providers Name Role Phone Gagandeep Hinojosa MD Primary Care Provider Encounter Details Date Type Department Care Team Description 02/14/2013 Lab Visit [place] [facility] Coronary atherosclerosis of unspecified type of vessel, tyonek or graft; [address] Type II or unspecified type diabetes mellitus without mention of complication, uncontrolled [place] [address] Social History Tobacco Use Types Packs/Day Years Used Date Smoking Tobacco: Never Assessed Sex Assigned at Date Recorded Not on file documented as of this encounter Plan of Treatment Not on filedocumented as of this encounter Procedures Procedure Name Priority Date/Time Associated Diagnosis Comme nts ALBUMIN/CREAT Routine 02/14/2013 11:47 Type II or unspecified Results for this RATIO AM CDT type diabetes mellitus proce dure are in without mention of the resul ts complication, section. uncontrolled ([facility]) LIPID PANEL AND Routine 02/14/2013 10:57 Coronary Results for this DIRECT LDL(IF AM CDT atherosclerosis of procedur e are in NEEDED) unspecified type of the resu lts vessel, tyonek or graft sect ion. ([facility]) Type II or unspecified type diabetes mellitus without mention of complication, uncontrolled ([facility]) LDL CHOLESTEROL, Routine 02/14/2013 10:57 Results for this DIRECT MEASURED AM CDT procedure ar e in the results section. HGB A1C Routine 02/14/2013 10:57 Type II or unspecified R esults for this AM CDT type diabetes mellitus proce dure are in without mention of the resul ts complication, section. uncontrolled ([facility]) documented in this encounter Results (ABNORMAL) Microalb/Creat Ratio (02/14/2013 11:47 AM CDT) [facility] gist Method Time Signature Microalbumin 108.0 mg/L HP CONVERSION Urine U Creat Random 167 mg/dL HP CONVERSION Microalbumin/Cre 64.7 (H) 0.0 - HP CONVERSION atinine Ratio 30.0 Specimen Anatomical Collection Method Collection Time Receive d Time (Source) Location / / Volume Laterality 02/14/2013 11:47 02/14/2013 3:18 AM CDT PM CDT Gagandeep Hinojosa MD LAB_1 Performing Organization Address City/State/ZIP Code Phon e Number HP CONVERSION LDL Cholesterol, Direct Measured (02/14/2013 10:57 AM CDT) athologist Signature LDL Direct 124 0 - 130 HP CONVERSION mg/dL Specimen Anatomical Collection Method Collection Time Receive d Time (Source) Location / / Volume Laterality 02/14/2013 10:57 02/14/2013 2:48 AM CDT PM CDT Narrative HP CONVERSION - 02/14/2013 6:19 PM CDT Performed at [facility], [address] [place] [address] Gagandeep Hinojosa MD LAB_1 Performing Organization Address City/[facility]/ZIP Code Phon e Number HP CONVERSION (ABNORMAL) Hgb A1c (02/14/2013 10:57 AM CDT) athologist Signature HGB A1C 12.3 (H) 4.0 - 5.6 % HP CONVERSION Specimen Anatomical Collection Method Collection Time Receive d Time (Source) Location / / Volume Laterality 02/14/2013 10:57 02/14/2013 3:18 AM CDT PM CDT Gagandeep Hinojosa MD LAB_1 Performing Organization Address City/State/ZIP Code Phon e Number HP CONVERSION (ABNORMAL) Lipid Panel and Direct LDL(If Needed) (02/14/2013 10:57 AM CDT) [facility] gist Method Time Signature Cholesterol 216 (H) 0 - 200 HP CONVERSION mg/dL Triglycerides 546 (H) 0 - 149 HP CONVERSION mg/dL HDL Cholesterol 32 (L) >39 mg/dL HP CONVERSION Cholesterol/HDL 6.8 HP CONVERSION Ratio Screen Length Of Fast 13.0 HP CONVERSION Specimen Anatomical Collection Method Collection Time Receive d Time (Source) Location / / Volume Laterality 02/14/2013 10:57 02/14/2013 2:48 AM CDT PM CDT Narrative HP CONVERSION - 02/14/2013 6:03 PM CDT Performed at [facility], [address] [facility], [place] [address] Gagandeep Hinojosa MD LAB_1 Performing Organization Address City/State/ZIP Code Phon e Number HP CONVERSION documented in this encounter Visit Diagnoses Diagnosis Coronary atherosclerosis of unspecified type of vessel, tyonek or graft ([facility]) Coronary atherosclerosis of unspecified type of vessel, tyonek or graft Type II or unspecified type diabetes jasen litus without mention of complication, uncontrolled documented in this encounter Care Teams Security System Analyst Relationship Specialty Start Date End Date Gagandeep Hinojosa MD PCP - General 05/17/12 [facility] [facility] [place] [address] Vane Zarate Psychiatrist Psychiatry 03/22/12 documented as of this encounter
--- OUTSIDE RECORDS SUMMARY | 2022-02-12 12:12 | XMS_ITS | Encounter Summary ---
:1970 Author Organization [facility] Address [address] [address] Care Team Providers Name Role Phone Gagandeep Hinojosa MD Primary Care Provider Reason for Visit Reason Comments Vomiting Diarrhea Abdominal Pain Encounter Details Date Type Department Care Team Description 03/07/2013 Hospital Encounter [facility], Abdo rosalie pain, unspecified site (Primary Dx); Care Millicent Belcher MD Dizziness; [address]; Drive [place], [place] [address] [phone] Social History Tobacco Use Types Packs/Day Years Used Date Smoking Tobacco: Never Assessed Sex Assigned at Date Recorded Not on file documented as of this encounter Last Filed Vital Signs Vital Sign Reading Time Taken Comments Blood Pressure 122/85 03/07/2013 2:52 PM LEAD INSTRUCTOR/FLIGHT ATTENDANT Pulse 97 03/07/2013 2:52 PM LEAD INSTRUCTOR/FLIGHT ATTENDANT Temperature 36.3 ??C (97.3 ??F) 03/07/2013 1:17 PM LEAD INSTRUCTOR/FLIGHT ATTENDANT Respiratory Rate 16 03/07/2013 2:52 PM LEAD INSTRUCTOR/FLIGHT ATTENDANT Oxygen Saturation - - Inhaled Oxygen Concentration - - Weight - - Height - - Body Mass Index - - documented in this encounter Medications at Time of Discharge Medication Sig Dispensed Refills Start End Date Date aspirin 81 MG chewable TAKE 1 TABLET BY MOUTH 100 tablet 1 0 tablet DAILY . 2 insulin isophane (AKA Inject 80 Units 40 mL 0 03/14/20 NOVOLIN NPH,HUMULIN N) subcutaneously 2 times 3 13 100 UNIT/ML daily (before meals). injectionIndications: BREAKFAST AND DINNER Type II or unspecified type diabetes mellitus without mention of complication, uncontrolled insulin regular (HUMULIN Inject 76 Units 40 mL 0 03/14/20 R) 100 UNIT/ML subcutaneously 2 times 3 13 injectionIndications: daily (before meals). Type II or unspecified BREAKFAST AND DINNER type diabetes mellitus without mention of complication, uncontrolled Insulin Syringe-Needle Inject 1 each 500 each 3 01/17/20 U-100 (INSULIN SYRINGE subcutaneously 4 times 3 14 1CC/28G) 28G X 1/2 1 ML daily. lisinopril (AKA ZESTRIL) Take 1 tablet by mouth 90 tablet 0 03/14/20 5 MG tablet daily (every 24 hours). 3 13 nicotine (aka NICODERM) Place 1 patch onto the 28 patch 0 03/14/20 14 MG/24HR skin every 24 hours. 3 13 Remove after 16-24 hours. nicotine ([facility] NICOTINE) Place 1 patch onto the 14 patch 0 03/14/20 7 MG/24HR skin every 24 hours. 3 13 patchIndications: Remove after 16-24 Tobacco abuse (HRC) hours. simvastatin (AKA ZOCOR) TAKE 1 TABLET BY [...] not cut/crush/chew. Take with food. insulin isophane (aka Inject 80 Units 0 03/14/20 novoLIN NPH,humuLIN N) subcutaneously 2 times 3 13 injection daily (before meals). breakfast and dinner insulin pen needle 31G X Inject 1 [...] 1 18 documented as of this encounter ED Notes Millicent Nieves - 03/07/2013 4:14 PM CST ED Provider Notes signed by Millicent Nieves MD at 03/16/13 1214 Author: Millicent Nieves MD Service: (none) Author Type: Physician Filed: 03/16/13 1214 Note Time: 03/07/131726 Status: Signed Cut Out Stitcher: Millicent Nieves MD (Physician) NAME: SHARLENE VARNER MR#: [id number] CSN: [id number] AUTHENTICATING CLINICIAN: Millicent Nieves MD CONFIRM #: [id number] LOC: 520 URGENT CARE PROGRESS NOTE DATE OF VISIT: 03/07/2013 : 1970 This 43-year-old with uncontrolled type 2 diabetes, coronary artery disease, obesity, bipolar type 1, hypertriglyceridemia, hyperlipidemia, presents with vomiting, diarrhea, abdominal pain. He began having vomiting and diarrhea last night at about midnight. At about 3 a.m., he developed lower abdominal pain. It seems to be bilateral. He noted a little pink tinge in his vomiting and became concerned. Also, he has noted some greenish and reddish stool. Denies chest pain, shortness of breath, dizziness, lightheadedness. Has no anorexia, actually feels hungry. No fever. No urinary symptoms, hematuria, dysuria. In review of his chart, he did have a negative coronary angiogram in 10/2012, which was overall negative. However, he had mild to moderate restenosis of the stent in RCA. Also hemoglobin A1c on 02/04, was 12.3. PAST MEDICAL HISTORY: Reviewed. MEDICATIONS: Reviewed. SOCIAL HISTORY: He works at [employer]. Began smoking cigarettes again. Does not drink alcohol. FAMILY HISTORY: Noncontributory. OBJECTIVE: BP 145/102, P 101, R 22, T 97.3. This is a well-appearing man in no distress. He does not look toxic. He looks very minimally dry. The mucous membranes are slightly dry. Conjunctivae pink. Sclerae nonicteric. TMs clear. Pharynx clear.No cervical adenopathy. LUNGS: Clear. No wheezes, rhonchi, or rales. HEART: Regular rate and rhythm without murmurs, clicks, rubs. No flank tenderness. ABDOMEN: Soft. There are good bowel sounds. No hepatosplenomegaly. He does have lower abdominal tenderness, the right might be slightly greater than the left. There is no rebound, no guarding, no masses. I do have the patient jump off of a step on the exam table. He has no elicited pain. He has no pain with walking. The stool guaiac is negative. URGENT CARE COURSE: This patient was given 500 mL normal saline and 4 mg IV Zofran with good relief of his nausea. ASSESSMENT: Abdominal pain, vomiting, diarrhea, probable gastroenteritis. PLAN: The patient declined any Zofran prescription. Continue to push p.o. liquids. Work note given. We discussed signs and symptoms of appendicitis and discussed possible diverticulitis and if his symptoms worsen or persist, he will return for recheck. SMS:Quantitative Medicine C: CONFIRM #: [id number] INSTRUCTOR/FLIGHT ATTENDANT Zayra Orozco RN - 03/07/2013 3:26 PM CST IV removed with cannula intact per order; pressure dressing applied to site. Pt verbalized improvement in condition and decrease in nausea. Pt discharged alert and oriented. Екатерина Broderick RN - 03/07/2013 2:55 PM CST VSS. Pt denies signs of allergic reaction. Pt resting comfortably. Pt alert. Nausea resolving. IV patent. Will continue to monitor pt. INSTRUCTOR/FLIGHT ATTENDANT Екатерина Broderick RN - 03/07/2013 2:37 PM CST Pt c/o feeling head coyle sensation, dizziness. Dr. Nieves informed. See BG result. documented in this encounter Miscellaneous Notes Miscellaneous - 03/07/2013 3:26 PM CSTNotes Recorded by Gina Ash MD on 03/07/2013 at 9:[address] Nieves review on 03/08/13. INSTRUCTOR/FLIGHT ATTENDANT Medication History - Elvis Ellington MD - 03/07/2013 3:26 PM CST INPATIENT MEDS Encounter Date: 03/07/13 0.9% sodium chloride infusion Start Date:03/07/13, End Date:03/07/13, Frequency:ONCE Taken Dose Action User Route Site Recorded Comment Reason 03/07/13 1525 500 mL Infused Zayra Shafer RN Intravenous - 03/07/13 1525 - - 03/07/13 1430 500 mL Given Екатерина Broderick RN Intravenous Not Applicable 03/07/13 1437 - - ondansetron (ZOFRAN) injection 4 mg Start Date:03/07/13, End Date:03/07/13, Frequency:ONCE Taken Dose Action User Route Site Recorded Comment Reason 03/07/13 1435 4 mg Given Екатерина Broderick RN Intravenous - 03/07/13 1437 - - INSTRUCTOR/FLIGHT ATTENDANT documented in this encounter Plan of Treatment Not on filedocumented as of this encounter Procedures Procedure Name Priority Date/Time Associated Diagnosis Comme nts BGS NO CHARGE Routine 03/07/2013 2:35 PM Results for this LEAD INSTRUCTOR/FLIGHT ATTENDANT procedure are i n the results section. ANION GAP STAT 03/07/2013 1:53 PM Results f or this LEAD INSTRUCTOR/FLIGHT ATTENDANT procedure are i n the results section. COMPLETE BLOOD STAT 03/07/2013 1:53 PM Abdominal pain, Resu lts for this COUNT-W/DIFF LEAD INSTRUCTOR/FLIGHT ATTENDANT unspecified site procedure a re in the results section. LIVER PANEL(HEPATIC STAT 03/07/2013 1:53 PM Abdominal pain, Results for this FUNCTION PANEL) LEAD INSTRUCTOR/FLIGHT ATTENDANT unspecified site procedur e are in the results section. BASIC METABOLIC PANEL STAT 03/07/2013 1:53 PM Abdominal sesar n, Results for this LEAD INSTRUCTOR/FLIGHT ATTENDANT unspecified site procedure a re in the results section. DIFFERENTIAL STAT 03/07/2013 1:53 PM Results f or this LEAD INSTRUCTOR/FLIGHT ATTENDANT procedure are i n the results section. VALPROIC ACID STAT 03/07/2013 1:53 PM Abdominal pain, Resul ts for this (DEPAKENE) LEAD INSTRUCTOR/FLIGHT ATTENDANT unspecified site procedure a re in the results section. LIPASE STAT 03/07/2013 1:53 PM Abdominal pain, Result s for this LEAD INSTRUCTOR/FLIGHT ATTENDANT unspecified site procedure a re in the results section. OCCULT BLOOD, EXAM 1 STAT 03/07/2013 1:52 PM Abdominal pain , Results for this LEAD INSTRUCTOR/FLIGHT ATTENDANT unspecified site procedure a re in the results section. URINE MICROSCOPIC STAT 03/07/2013 1:37 PM Abdominal pain, R esults for this LEAD INSTRUCTOR/FLIGHT ATTENDANT unspecified site procedure a re in the results section. URINALYSIS STAT 03/07/2013 1:37 PM Abdominal pain, Result s for this ROUTINE(MICRO IF POS) LEAD INSTRUCTOR/FLIGHT ATTENDANT unspecified site pr ocedure are in the results section. BGS NO CHARGE Routine 03/07/2013 1:24 PM Results for this LEAD INSTRUCTOR/FLIGHT ATTENDANT procedure are i n the results section. documented in this encounter Results BGS NO CHARGE (03/07/2013 2:35 PM LEAD INSTRUCTOR/FLIGHT ATTENDANT) athologist Signature Bedside Blood 147 mg/dL HP CONVERSION Glucose Test Comment: Performed at [facility], [address], [place]. [address] Specimen Anatomical Collection Method Collection Time Receive d Time (Source) Location / / Volume Laterality 03/07/2013 2:35 PM 3 2:40 LEAD INSTRUCTOR/FLIGHT ATTENDANT PM LEAD INSTRUCTOR/FLIGHT ATTENDANT Millicent Nieves MD LAB_1 Performing Organization Address City/State/ZIP Code Phon e Number HP CONVERSION (ABNORMAL) Differential (03/07/2013 1:53 PM LEAD INSTRUCTOR/FLIGHT ATTENDANT) [facility] gist Method Time Signature Absolute 7.2 1.8 - 8.0 HP CONVERSION Neutrophils k/cmm Absolute 3.1 1.1 - 4.0 HP CONVERSION Lymphocytes k/cmm Absolute 1.0 (H) 0.2 - 0.8 HP CONVERSION Monocytes k/cmm Absolute 0.2 0.0 - 0.5 HP CONVERSION Eosinophils k/cmm Absolute 0.0 0.0 - 0.2 HP CONVERSION Basophils k/cmm RBC Morphology Normal HP CONVERSION Platelet Normal HP CONVERSION Estimate Specimen Anatomical Collection Method Collection Time Receive d Time (Source) Location / / Volume Laterality 03/07/2013 1:53 PM 3 1:52 LEAD INSTRUCTOR/FLIGHT ATTENDANT PM LEAD INSTRUCTOR/FLIGHT ATTENDANT Narrative HP CONVERSION - 03/07/2013 2:27 PM LEAD INSTRUCTOR/FLIGHT ATTENDANT Performed at [facility], [address] [place] [address] Millicent Nieves MD LAB_1 Performing Organization Address [facility] Phon e Number HP CONVERSION ANION GAP (03/07/2013 1:53 PM LEAD INSTRUCTOR/FLIGHT ATTENDANT) athologist Signature ANION GAP 7 0 - 16 mEq/L HP CONVERSION Specimen Anatomical Collection Method Collection Time Receive d Time (Source) Location / / Volume Laterality 03/07/2013 1:53 PM 3 1:52 LEAD INSTRUCTOR/FLIGHT ATTENDANT PM LEAD INSTRUCTOR/FLIGHT ATTENDANT Narrative HP CONVERSION - 03/07/2013 2:28 PM LEAD INSTRUCTOR/FLIGHT ATTENDANT Performed at [facility], [address] [place] [address] Millicent Nieves MD LAB_1 Performing Organization Address [facility] Phon e Number HP CONVERSION Lipase (03/07/2013 1:53 PM LEAD INSTRUCTOR/FLIGHT ATTENDANT) athologist Signature Lipase 34 5 - 70 U/L HP CONVERSION Specimen Anatomical Collection Method Collection Time Receive d Time (Source) Location / / Volume Laterality 03/07/2013 1:53 PM 3 1:52 LEAD INSTRUCTOR/FLIGHT ATTENDANT PM LEAD INSTRUCTOR/FLIGHT ATTENDANT Narrative HP CONVERSION - 03/07/2013 2:28 PM LEAD INSTRUCTOR/FLIGHT ATTENDANT Performed at [facility], [address] [place] [address] Millicent Nieves MD LAB_1 Performing Organization Address [facility] Phon e Number HP CONVERSION Liver Panel(Hepatic Function Panel) (03/07/2013 1:53 PM LEAD INSTRUCTOR/FLIGHT ATTENDANT) Patholo gist Method Time Signature Alk Phos 61 25 - 135 HP CONVERSION U/L Bilirubin Total 0.5 0.2 - 1.2 HP CONVERSION mg/dL Bilirubin, Direct 0.1 0.0 - 0.4 HP CONVERSIO N mg/dL Protein Total, Serum 7.8 5.7 - 8.3 HP CONVER CRISTHIAN g/dL Albumin 4.6 3.4 - 5.0 HP CONVERSION g/dL Aspartate 22 0 - 45 HP CONVERSION Aminotransferase U/L Alanine 20 4 - 55 HP CONVERSION Aminotransferase U/L Specimen Anatomical Collection Method Collection Time Receive d Time (Source) Location / / Volume Laterality 03/07/2013 1:53 PM 3 1:52 LEAD INSTRUCTOR/FLIGHT ATTENDANT PM LEAD INSTRUCTOR/FLIGHT ATTENDANT Narrative HP CONVERSION - 03/07/2013 2:28 PM LEAD INSTRUCTOR/FLIGHT ATTENDANT Performed at [facility], [address] [place] [address] Millicent Nieves MD LAB_1 Performing Organization Address City/State/ZIP Code Phon e Number HP CONVERSION (ABNORMAL) Basic Metabolic Panel (03/07/2013 1:53 PM LEAD INSTRUCTOR/FLIGHT ATTENDANT) [facility] gist Method Time Signature Creatinine Serum 0.8 0.4 - 1.3 HP CONVERSION mg/dL Lab Glucose 157 (H) 60 - 100 HP CONVERSION mg/dL Bicarbonate 27 23 - 33 HP CONVERSION mmol/L Chloride 99 98 - 110 HP CONVERSION mEq/L Potassium 4.6 3.5 - 5.2 HP CONVERSION mEq/L Sodium 133 (L) 137 - 147 HP CONVERSION mEq/L Blood Urea 14 5 - 26 HP CONVERSION Nitrogen mg/dL Calcium 9.9 8.5 - 10.5 HP CONVERSION mg/dL Est GFR >60 >60 HP CONVERSION [...] Time (Source) Location / / Volume Laterality 03/07/2013 1:53 PM 3 1:52 LEAD INSTRUCTOR/FLIGHT ATTENDANT PM LEAD INSTRUCTOR/FLIGHT ATTENDANT Narrative HP CONVERSION - 03/07/2013 2:28 PM LEAD INSTRUCTOR/FLIGHT ATTENDANT Performed at [facility], [address] [place] [address] Millicent Nieves MD LAB_1 Performing Organization Address City/State/ZIP Code Phon e Number HP CONVERSION (ABNORMAL) Complete Blood Count W/Diff (03/07/2013 1:53 PM LEAD INSTRUCTOR/FLIGHT ATTENDANT) [facility] Method Time Signature White Blood Cell 11.6 (H) 3.8 - HP CONVERSION Count 11.0 k/cmm Red Blood Cell 5.67 4.20 - HP CONVERSION Count 5.90 m/cmm Hemoglobin 16.7 13.4 - HP CONVERSION 17.5 g/dL Hematocrit 49.4 39.0 - HP CONVERSION 51.0 % Mean Corpuscular 87.0 80.0 - HP CONVERSION Volume 100.0 fL RDW 11.4 11.0 - HP CONVERSION 15.0 % Platelet Count 221 140 - 450 HP CONVERSION k/cmm Specimen Anatomical Collection Method Collection Time Receive d Time (Source) Location / / Volume Laterality 03/07/2013 1:53 PM 3 1:52 LEAD INSTRUCTOR/FLIGHT ATTENDANT PM LEAD INSTRUCTOR/FLIGHT ATTENDANT Narrative HP CONVERSION - 03/07/2013 2:25 PM LEAD INSTRUCTOR/FLIGHT ATTENDANT Performed at [facility], [address] [place] [address] Millicent Nieves MD LAB_1 Performing Organization Address City/[facility] Code Phon e Number HP CONVERSION Valproic Acid (Depakene) (03/07/2013 1:53 PM LEAD INSTRUCTOR/FLIGHT ATTENDANT) [facility] Method Time Signature Date Last Dose 03/06/2013 HP CONVERSION Valproic Acid Time Last Dose 10.00 HP CONVERSION Valproic Acid Valproic 98 50 - 100 HP CONVERSION Acid/Depakene ug/mL (Valp) Specimen Anatomical Collection Method Collection Time Receive d Time (Source) Location / / Volume Laterality 03/07/2013 1:53 PM 3 6:13 LEAD INSTRUCTOR/FLIGHT ATTENDANT PM LEAD INSTRUCTOR/FLIGHT ATTENDANT Transcriptions 03/07/2013 3:26 PM CSTNotes Recorded by Gina Ash MD on 03/07/2013 at 9:[address] Nieves review on 03/08/13. Millicent Nieves MD LAB_1 Performing Organization Address City/[facility]/ZIP Code Phon e Number HP CONVERSION Occult Blood, Exam 1 (03/07/2013 1:52 PM LEAD INSTRUCTOR/FLIGHT ATTENDANT) [facility] Method Time Signature Occult Blood, Negative Negative HP CONVERSION Stool #1 Date/Time #1 11,132,013 HP CONVERSION Specimen Anatomical Collection Method Collection Time Receive d Time (Source) Location / / Volume Laterality 03/07/2013 1:52 PM 3 1:57 LEAD INSTRUCTOR/FLIGHT ATTENDANT PM LEAD INSTRUCTOR/FLIGHT ATTENDANT Narrative HP CONVERSION - 03/07/2013 2:00 PM LEAD INSTRUCTOR/FLIGHT ATTENDANT [place] [address] Millicent Nieves MD LAB_1 Performing Organization Address [facility] Phon e Number HP CONVERSION URINE MICROSCOPIC (03/07/2013 1:37 PM LEAD INSTRUCTOR/FLIGHT ATTENDANT) athologist Signature Urine WBC 0-2 0 - 4 /HPF HP CONVERSION Urine RBC None seen 0 - 2 /HPF HP CONVERSION Specimen Anatomical Collection Method Collection Time Receive d Time (Source) Location / / Volume Laterality 03/07/2013 1:37 PM 3 1:55 LEAD INSTRUCTOR/FLIGHT ATTENDANT PM LEAD INSTRUCTOR/FLIGHT ATTENDANT Narrative HP CONVERSION - 03/07/2013 2:05 PM LEAD INSTRUCTOR/FLIGHT ATTENDANT [place] [address] Millicent Nieves MD LAB_1 Performing Organization Address City/[facility] Phon e Number HP CONVERSION (ABNORMAL) URINALYSIS ROUTINE(MICRO IF POS) (03/07/2013 1:37 PM LEAD INSTRUCTOR/FLIGHT ATTENDANT) [facility] Method Time Signature Urine Type Urine:clean HP CONVERSION cat Turbidity Clear Clear HP CONVERSION U BILI Negative Negative HP CONVERSION Blood Urine Negative Negative HP CONVERSION Glucose, Negative Neg-30 HP CONVERSION Qualitative U mg/dL Ketones Trace (A) Negative HP CONVERSION Leukocyte Negative Negative HP CONVERSION Esterase Urine Nitrite Urine Negative Negative HP CONVERSION pH Urine 7.0 5.0 - 8.0 HP CONVERSION Protein Urine Negative Neg - Trace HP CONVERSION mg/dL U Specific 1.015 1.005 - HP CONVERSION [place] 1.030 Urobilinogen Negative Negative HP CONVERSION Urine Eu/dL Specimen Anatomical Collection Method Collection Time Receive d Time (Source) Location / / Volume Laterality Urine: 03/07/2013 1:37 PM 3 1:55 LEAD INSTRUCTOR/FLIGHT ATTENDANT PM LEAD INSTRUCTOR/FLIGHT ATTENDANT Narrative HP CONVERSION - 03/07/2013 2:05 PM LEAD INSTRUCTOR/FLIGHT ATTENDANT Performed at [address], [place] [address] Millicent Nieves MD LAB_1 Performing Organization Address City/[facility] Code Phon e Number HP CONVERSION BGS NO CHARGE (03/07/2013 1:24 PM LEAD INSTRUCTOR/FLIGHT ATTENDANT) athologist Signature Bedside Blood 158 mg/dL HP CONVERSION Glucose Test Comment: Performed at [facility], [address] , [place]. [address] Specimen Anatomical Collection Method Collection Time Receive d Time (Source) Location / / Volume Laterality 03/07/2013 1:24 PM 3 1:30 LEAD INSTRUCTOR/FLIGHT ATTENDANT PM LEAD INSTRUCTOR/FLIGHT ATTENDANT Millicent Nieves MD LAB_1 Performing Organization Address City/[facility] Code Phon e Number HP CONVERSION documented in this encounter Visit Diagnoses Diagnosis Abdominal pain, unspecified site - Prima ry Dizziness Dizziness and giddiness Vomiting Vomiting alone Diarrhea Triage Assessment Note - Екатерина Broderick RN - 03/07/2013 1:17 PM CST Pt c/o low mid abd pain, vomiting, diarrhea, chills. Approx 6 episodes since yesterday. Pt noticed pinkish red drops of blood in stool today. Pt feels weak and shakey. BG 120 this am. Did not take am insulin. Pt states he has not taken any meds today. INSTRUCTOR/FLIGHT ATTENDANT documented in this encounter Care Teams Reimbursement Spec Relationship Specialty Start Date End Date Gagandeep Hinojosa MD PCP - General 05/17/12 [facility]5 KATIANA Hernandez [address] [address] [facility] 03/22/12 documented as of this encounter
--- OUTSIDE RECORDS SUMMARY | 2022-02-12 12:12 | XMS_ITS | Encounter Summary ---
:1970 Author Organization [employer] Address [address] [place] [address] Care Team Providers Name Role Phone Gagandeep Hinojosa MD Primary Care Provider Reason for Visit Reason Comments Medication Questions Encounter Details Date Type Department Care Team Description 03/16/2013 Telephone [place] [facility] Gagandeep Hinojosa, Medic ation Questions Medicine [address] [facility] . 14[address] [facility] [place] [address] [place] [address] [phone] (Wo rk) Social History Tobacco Use Types Packs/Day Years Used Date Smoking Tobacco: Never Assessed Sex Assigned at Date Recorded Not on file documented as of this encounter Nursing Notes Judy Pittman RN - 03/20/2013 9:56 AM CST Software Sales Representative - Phone Call Reason for call: Care Coordination Discussion/actions: I spoke with Lev at the [facility]. While they understand Rustam is having a hard time covering the cost of his medication, it is important to develop a plan to avoid the same situation from happening again next year. Lev was able to get another month of insulin costs covered, but with the condition that Rustam will call and develop a budget for 2013 that will set aside money to cover his insulin when he [facility] the [facility] next year. Rustam agreed. Shared plan: Lev will contact [facility] pharmacy and cover the cost of Rustam's insulin for another month. I provided Rustam with Lev's contact information and he will call her in April to develop a budget for 2013. Rustam verbalized understanding and agreed with plan of care and follow up. ING HOUSE KEEPER Judy Pittman RN - 03/19/2013 4:48 PM CST Software Sales Representative - Phone Call Reason for call: Care Coordination Discussion/actions: Outreach to Rustam to discuss his insulin needs. Rustam reports he has 1 week of insulin left and cannot afford to purchase another month of insulin. Rustam did come in for his A1c as directed on 02/14/13, but the result was 12.3. Rustam explains the high A1c as a result of rationing his insulin the previous month. Rustam did receive assistance from the [facility] for his previous refill and has been taking his insulin as directed, but it was supposed to be a one time offer. Rustam SMBG tid and reports his fasting BG has been running 110-120 in the morning. I contacted Zoie Serrano, client care representative from [employer]. Zoie states she does not carry samples for the analog insulins. Per [employer], Rustam and his are over income for their assistance guidelines. Since Rustam is already using the generic, lowest cost insulin there aren't any other assistance programs available. Rustam's insulin needs are high, he uses 8 bottles of insulin a monthwhich costs him over $200 a month when he hits the doughnut hole. Shared plan: Left message with Lev at the [facility] to see if they can assist with another month of insulin. Will contact Zoie Serrano for assistance, if no other resources are available, and switch Rustam to a background plus mealtime insulin regimen for one month. Sarah Rm - 03/16/2013 4:47 PM CST pt informed that the [facility] was only able to help once so we are going to have to check some other ways to try to find him some assistance with this. asked pt if he has enough medication through 03/19 and he states he does. asked if he has enough for several days next week also and he thinks he does. advised him that [facility] nurse will work on this for him next week and call him when she has worked it out. advised that [facility] has contacts but she also needs to wait to hear from them so we do not know how long this will take to resolve. he states understanding ING HOUSE KEEPER Verena Padilla - 03/16/2013 4:36 PM CST Pt is calling back with further concerns. Sarah Leon - 03/16/2013 3:27 PM CST pt calling. says he is in need of his Novolin N and Novolin R insulins and his lisinopril. he has refills on meds but it costs him 224.00 for the month which he is unable to afford. asking for assistance to have [facility] help him with this. says he has enough med for a couple of days but not comfortable waiting for this to be addressed 03/19 ING HOUSE KEEPER Ajit Van - 03/16/2013 3:20 PM CST Patient calling about refill on medication but is inquiring if the [facility] can help him out. documented in this encounter Plan of Treatment Not on filedocumented as of this encounter Visit Diagnoses Not on filedocumented in this encounter Care Teams Clinical Athletic Instructor Relationship Specialty Start Date End Date Gagandeep Hinojosa MD PCP - General 05/17/12 [address] [place] [address] Vane Zarate Psychiatrist Psychiatry 03/22/12 documented as of this encounter
--- OUTSIDE RECORDS SUMMARY | 2022-02-12 12:12 | XMS_ITS | Encounter Summary ---
:1970 Author Organization [employer] Address [address] [place] [address] Care Team Providers Name Role Phone Gagandeep Hinojosa MD Primary Care Provider Reason for Visit Reason Comments Care Coordination Encounter Details Date Type Department Care Team Description 02/12/2013 Telephone [place] [facility] Judy Pittman RN Care Coordination [address] [facility] . [address] [place] [address] [place] [address] [phone] Social History Tobacco Use Types Packs/Day Years Used Date Smoking Tobacco: Never Assessed Sex Assigned at Date Recorded Not on file documented as of this encounter Nursing Notes Judy Pittman RN - 02/13/2013 4:11 PM CDT Rustam left a detailed message stating that he did receive his insulin and the cost was covered by the [facility], he is grateful. Rustam will call back next week to schedule a lab appt for her A1c. Judy Pittman RN - 02/13/2013 4:00 PM CDT Left message requesting a return call. Please transfer to [phone]. Checking to make sure Rustam received his insulin at [facility] in [place] and there weren't any problems with payment. udy Weber RN - 02/12/2013 3:43 PM CDT Acid Mixer - Phone Call Reason for call: Medication assistance Discussion/actions: Lev is returning my call, stating that the [facility] will be able to help Rustam with the cost of his insulin for this month. Unfortunately, [facility] does not work with [facility] and therefore will need the prescription transferred to [facility] in [place] to arrange payment. I spoke with the pharmacist at [facility] and provided a verbal order for Novolin N and Novolin R per Dr Hinojosa's orders on 02/09/13. I spoke with pharmacist at [facility] and discontinued the refill senton 02/09/13. I left a detailed message for Rustam stating he can pickle processor his Novolin N and Novolin R refill at [facility] pharmacy in [place], the [facility] will cover the cost for this month. I reminded Rustam thathe is due to have his A1c checked before the end of this month and will need to have this completed before further refills. Shared plan: I provided my contact information for Rustam to call and schedule his A1c. Judy Pittman RN - 02/12/2013 2:11 PM CDT Acid Mixer - Phone Call Reason for call: Medication assistance Discussion/actions: Rustam called and left a detailed message. He reports needing to replace all 4 tires on his vehicle and has therefore run out of money to cover the cost of his medication. Rustam has hit the doughnut hole and the cost of his insulin is $172. Rustam is wondering if there is any assistance to help cover his insulin cost for this month only. Shared plan: Outreach to the [facility] for assistance. documented in this encounter Plan of Treatment Not on filedocumented as of this encounter Visit Diagnoses Not on filedocumented in this encounter Care Teams Pulling Machine Operator Relationship Specialty Start Date End Date Gagandeep Hinojosa MD PCP - General 05/17/12 [address] [facility] [place] [address] Vane Zarate Psychiatrist Psychiatry 03/22/12 documented as of this encounter
--- OUTSIDE RECORDS SUMMARY | 2022-02-12 12:12 | XMS_ITS | Encounter Summary ---
:1970 Author Organization [employer] Address [address] [place] [address] Care Team Providers Name Role Phone Gagandeep Hinojosa MD Primary Care Provider Reason for Visit Reason Comments Care Coordination Encounter Details Date Type Department Care Team Description 02/06/2013 Telephone [place] [facility] Judy Pittman RN Care Coordination [address] [facility] . [address] [facility] [place] [address] [place] [address] [phone] Social History Tobacco Use Types Packs/Day Years Used Date Smoking Tobacco: Never Assessed Sex Assigned at Date Recorded Not on file documented as of this encounter Nursing Notes Judy Pittman RN - 02/09/2013 11:46 AM CDT RN Turf Farmer - Diabetes Phone Follow-Up Current diabetes medication regimen: Novolin N 80 units bid Novolin R 76 units bid CURRENT GLUCOSE PATTERNS: Rustam does not have his record book with him at this time, these readings are from memory. Before breakfast: 120's 2 hours postmeal: 160-170 Hypoglycemia (previous two weeks): none Assessment/education: Rustam is calling back, he apologizes for taking so long to return my call. 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 Rustam states he is doing very well and feels good. He has been SMBG tid and his BG readings are much improved. Rustam made some dietary changes that have made a big difference in his readings, particularly switching to diet soda and portion control. I praised Rustam for his efforts and improved BG control. Rustam notes he recently hit the doughnut hole again this year with his Medicare coverage, so he is paying for his insulin [id number]. Rustam states he is managing ok at this time. He knows he due fora Hgb A1c in 01/2013, but would like to call back to schedule the appt. Teach back method used to verify understanding. Shared plan: I reminded Rustam that I am available for care coordination services at any time, particularly if he cannot afford his insulin. Rustam has my contact information and was advised to call with questions and future needs. Call if sx of hypoglycemia or glucose readings < 70 mg/dL. Rustam verbalized understanding and agreed with plan of care and follow up. Judy Pittman RN - 02/09/2013 9:19 AM CDT After multiple attempts, unable to reach Rustam. Contact information provided. Will close encounter. Judy Pittman RN - 02/06/2013 2:39 PM CDT Left message requesting a return call. Please transfer to [phone]. I received notice that Rustam has been frequently utilizing the ER, with 6 visits in the past year. documented in this encounter Plan of Treatment Not on filedocumented as of this encounter Visit Diagnoses Not on filedocumented in this encounter Care Teams Truck Shop Supervisor Relationship Specialty Start Date End Date Gagandeep Hinojosa MD PCP - General 05/17/12 14[address] [facility] [place] [address] Vane Zarate Psychiatrist Psychiatry 03/22/12 documented as of this encounter
--- OUTSIDE RECORDS SUMMARY | 2022-02-12 12:12 | XMS_ITS | Encounter Summary ---
:1970 Author Organization [employer] Address [address] [place] [address] Care Team Providers Name Role Phone Gagandeep Hinojosa MD Primary Care Provider Reason for Visit Reason Comments Diabetes Encounter Details Date Type Department Care Team Description 03/14/2013 Office Visit Gagandeep Storm Type II or unspecified type diabetes mellitus without mention of complication, uncontrolled (Primary Dx); Romario Rubio MD Need for influenza vaccination; [address] [place] 14[address] [facility] Coronary atherosclerosis of unspecified type of vessel, poarch or graft; [address] Ave buttermaker continuous churn current use of insulin; [place] [address] [place] Long-term insulin use in typ e 2 diabetes; [phone] [id number] Unspecified essential hypertension; [phone] Tobacco use dis order; (Work) Obesity, unspecified Social History Tobacco Use Types Packs/Day Years Used Date Smoking Tobacco: Never Assessed Sex Assigned at Date Recorded Not on file documented as of this encounter Last Filed Vital Signs Vital Sign Reading Time Taken Comments Blood Pressure 122/74 03/14/2013 1:46 PM EYELET CUTTER Pulse 98 03/14/2013 1:46 PM EYELET CUTTER Temperature - - Respiratory Rate - - Oxygen Saturation - - Inhaled Oxygen Concentration - - Weight 105.2 kg (232 lb) 03/14/2013 1:46 PM EYELET CUTTER Height - - Body Mass Index 33.29 10/25/2012 6:00 PM CDT documented in this encounter Patient Instructions Patient InstructionsGagandeep Hinojosa MD - 03/14/2013 7:44 PM CST My Diabetes at a Glance Aspirin Use Y/N A1C % Blood Pressure mm/Hg LDL Cholesterol mg/dL Tobacco Use Y/N Eye Exam Foot ExamUrine Microalbumin Most Recent Results Yes pending 122/74 not available Yes normal normal not available Prior Results Yes in excess of 12.3 not available not available Yes normal normal not available Your Goal 81 milligrams a day or [...] A normal value is less than 30. ET CUTTER documented in this encounter Progress Notes Gagandeep Hinojosa MD - 03/14/2013 7:44 PM CST SUBJECTIVE: 43 y.o. male presents today for diabetes check. Aspirin:Continues to take aspirin daily. No stomach pains, no black or tarry stools. Blood pressure:Patient has not been checking blood pressures at home. Patient did not bring in outside blood pressure records. Blood sugars: Patient has been checking blood sugars. Blood sugars have not been at goal, but are improving now that he has insulin. No symptomatic highs or lows. Patient Patient did not bring in outside records.. Cholesterol: Lipids have not been at goal. No muscle aches or pains. Tobacco: Patient reports that he has quit smoking. His smoking use included Cigarettes. He smoked 0.00 packs per day for 25 years. He quit smokeless tobacco use about 4 months ago. Eye exam: Patient is up-to-date [...] (before meals). BREAKFAST AND DINNER 40 mL 0 ??? [DISCONTINUED] insulin NPH (NOVOLIN N) 100 unit/mL Susp Inject 80 Units subcutaneously 2 times daily (before meals). breakfast and dinner ??? [DISCONTINUED] insulin regular (NOVOLIN R) 100 unit/mL injection Inject 76 Units subcutaneously 2 times daily (before meals). BREAKFAST AND DINNER 40 mL 0 ??? Insulin Syringe-Needle U-100 (ULTRA-THIN II, SHORT, INS SYR) 1 mL 30 x 5/16 Syrg Inject 1 each subcutaneously 4 times daily. 500 each 3 ??? [DISCONTINUED] lisinopril (PRINIVIL, ZESTRIL) 5 mg tablet Take 1 tablet by mouth daily (every 24hours). 90 tablet 0 ??? [DISCONTINUED] nicotine (NICODERM CQ) 14 mg/[address] 1 patch onto the skin every 24 hours. Remove after 16-24 hours. 28 patch 0 ??? [DISCONTINUED] nicotine (NICODERM CQ) 7 mg/[address] 1 patch onto the skin every 24 hours. Remove after 16-24 hours. 14 patch 0 ??? omega-3 fatty acids-fish oil 340-1,000 mg capsule Take 2 capsules by mouth 2 times daily. Indications: HYPERTRIGLYCERIDEMIA 360 capsule 3 ??? risperiDONE (RISPERDAL) 4 mg tablet Take 4 mg by mouth daily (every 24 hours). ??? simvastatin (ZOCOR) 80 mg tablet TAKE 1 TABLET BY MOUTH EVERY NIGHT 90 tablet 2 No current facility-administered medications on file prior to visit. Adverse Drug Reactions: Allergies Allergen Reactions ??? Abilify (Aripiprazole) permanent shaking in left arm ??? Haloperidol Shock ??? Thiothixene Other (See Comments) Muscle spasm OBJECTIVE: Vital Signs: BP 122/74 Pulse 98 Wt 232 lb (105.235 kg) BMI 33.29 kg/m2 General: Alert, Oriented, NAD Head: Normocephalic. [...] Labs: Lab Results Component Value Date A1C 12.3* 02/14/2013 MICROALBUR 108.0 02/14/2013 CREA 0.8 03/07/2013 Lab Results Component Value Date CHOLESTEROL 216* 02/14/2013 HDL 32* 02/14/2013 LDL 124 02/14/2013 TRIGLYCERIDE 546* 02/14/2013 Lab Results Component Value Date ALT 20 03/07/2013 AST 22 03/07/2013 HGB A1C Date Value Range Status 02/14/2013 12.3* 4.0 - 5.6 % Final Hemoglobin A1CRM Date Value Range Status 11/25/2010 10.0* 0.0-6.0 % Final Hemoglobin A1C, POC Date Value Range Status 07/06/2011 10.6* 6.0 % Final Lab Results Component Value Date/Time HGB A1C 12.3* 02/14/2013 1057 Hemoglobin A1CRM 10.0* 11/25/2010 1618 Hemoglobin A1C, POC 10.6* 07/06/2011 1650 No results found for this basename: GLUF Lab Results Component Value Date CL 99 03/07/2013 ASSESSMENT: 1. Type 2 diabetes, uncontrolled 2. Hypertension, controlled 3. Hyperlipidemia, uncontrolled Diagnosis (ICD9) and Associated Orders 1. Type II or unspecified type diabetes mellitus without mention of complication, uncontrolled (HCC)(250.02) lisinopril (PRINIVIL, ZESTRIL) 5 mg tablet, insulin NPH (NOVOLIN N) 100 unit/mL Susp, insulin regular (NOVOLIN R) 100 unit/mL injection, Aspartate Aminotransferase, Cholesterol Fraction-LDLD If Trig High, Hemoglobin A1C Glycosylated, Microalbumin Urine Random (UMAR) Chronic 2. Need for influenza vaccination (V04.81) Fluzone Influenza QIV (36+ mos) 3. CAD (414.00) Aspartate Aminotransferase, Cholesterol Fraction-LDLD If Trig High Chronic PLAN: 1. patient now has access to insurance and medication coverage The patient was discharged ambulatory and in stable condition. Diabetes measures: A1c Due: 3 months Foot Exam: 3 months Eye exam: This year Cholesterol: 3 months Electrolytes: Not applicable UMAR: 3 months Aspirin: yes Tobacco: yes ET CUTTER documented in this encounter Plan of Treatment Not on filedocumented as of this encounter Visit Diagnoses Diagnosis Type II or unspecified type diabetes jasen litus without mention of complication, uncontrolled - Primary Need for influenza vaccination Need for prophylactic vaccination and in oculation against influenza Coronary atherosclerosis of unspecified type of vessel, poarch or graft ([facility]) Coronary atherosclerosis of unspecified type of vessel, poarch or graft buttermaker continuous churn current use of insulin ([facility]) Encounter for long-term (current) use of insulin Long-term insulin use in type 2 diabetes ([facility]) Type II or unspecified type diabetes jasen litus without mention of complication, not stated as uncontrolled Unspecified essential hypertension ([facility]) Unspecified essential hypertension Tobacco use disorder ([facility]) Tobacco use disorder Obesity, unspecified ([facility]) Obesity, unspecified documented in this encounter Care Teams [facility] Nurse Relationship Specialty Start Date End Date Gagandeep Hinojosa MD PCP - General 05/17/12 [address] [place] [address] Vane Zarate Psychiatrist Psychiatry 03/22/12 documented as of this encounter
--- OUTSIDE RECORDS SUMMARY | 2022-02-12 12:12 | XMS_ITS | Encounter Summary ---
:1970 Author [facility] Address [address] [place] [address] Care Team Providers Name Role Phone Gagandeep Hinojosa MD Primary Care Provider Reason for Visit Reason Comments Post Hospital Discharge Follow Up Encounter Details Date Type Department Care Team Description 10/28/2012 Telephone [place] [facility] Gagandeep Hinojosa, Post Hospital Discharge Medicine MD Follow Up 14[address] [facility] . [address] [place] [address] [place] [address] [phone] (Wo rk) Social History Tobacco Use Types Packs/Day Years Used Date Smoking Tobacco: Never Assessed Sex Assigned at Date Recorded Not on file documented as of this encounter Nursing Notes Marilu Paul - 10/28/2012 1:20 PM CDT Post hospitalization discharge follow up call completed. See doc flowsheet: [facility] for details. documented in this encounter Plan of Treatment Not on filedocumented as of this encounter Visit Diagnoses Not on filedocumented in this encounter Care Teams Grades 1 Through 6 Teacher Relationship Specialty Start Date End Date Gagandeep Hinojosa MD PCP - General 05/17/12 [address]15 [place], [place] [id number] Vane Zarate Psychiatrist Psychiatry 03/22/12 documented as of this encounter
--- OUTSIDE RECORDS SUMMARY | 2022-02-12 12:12 | XMS_ITS | Encounter Summary ---
:1970 Author Organization [employer] Address [address] [place] [address] Care Team Providers Name Role Phone Gagandeep Hinojosa MD Primary Care Provider Reason for Visit Reason Comments Follow-up Encounter Details Date Type Department Care Team Description 11/07/2012 Office Visit Gagandeep Storm Type II or unspecified type diabetes mellitus without mention of complication, uncontrolled (Primary Dx); Romario Rubio MD Tobacco abuse; [address] [facility] Coronary atherosclerosis of unspecified type of vessel, [place] or graft; [address] Ave Left shoulder pain [place] [address] [place] [phone] Social History Tobacco Use Types Packs/Day Years Used Date Smoking Tobacco: Never Assessed Sex Assigned at Date Recorded Not on file documented as of this encounter Last Filed Vital Signs Vital Sign Reading Time Taken Comments Blood Pressure 117/78 11/07/2012 1:24 PM CDT Pulse 124 11/07/2012 1:24 PM CDT Temperature - - Respiratory Rate - - Oxygen Saturation - - Inhaled Oxygen Concentration - - Weight 100.2 kg (221 lb) 11/07/2012 1:24 PM CDT Height - - Body Mass Index 31.71 10/25/2012 6:00 PM CDT documented in this encounter Progress Notes Gagandeep Hinojosa MD - 11/08/2012 12:05 AM CDT CHIEF COMPLAINT: Chief Complaint Patient presents with ??? Follow-up SUBJECTIVE : Timur Krishnamurthy is an 42 y.o. male who presents for multiple concerns. Patient has known coronary artery disease, status post stenting. History of diabetes, controlled, hypertension, controlled, and tobacco abuse. Recently had chest pain, resulting in an emergency room visit at which point a CT angiogram was performed suggesting recurrent coronary artery disease. He had a negative troponin and anotherwise unremarkable EKG. He was transferred to [facility], and underwent angiography, which showed no acute lesions. Nonetheless, he is now motivated to discontinue smoking, and he is on nicotine patch. His diabetes seems to be well-controlled, although he obtains his [id number] from an outside agency. Labs are pending. He has had some persistent left shoulder pain over the past week, unrelated to his chest pain. He has some discomfort moving his shoulder and it causes him distress at night. No history of trauma. PROBLEM LIST: Patient Active Problem List Diagnosis Date Noted ??? Tobacco use disorder 10/26/2012 ??? ACS (acute coronary syndrome) 10/25/2012 ??? Anemia, unspecified 05/02/2012 ??? Microalbuminuria 02/04/2012 ??? OK, old 09/16/2011 ??? History of PTCA 04/2011 BMS RCA 09/16/2011 ??? Obesity, Class I, BMI 30-34.9 09/16/2011 Overview Note: Body mass index is 31.16 kg/(m^2). ? ? Hyperlipidemia LDL goal < 70 06/08/2011 ??? ASHD (arteriosclerotic heart disease) 05/04/2011 ??? Erectile dysfunction 01/22/2011 Overview Note: side effect Risperdal ??? DM w/o complication type II, uncontrolled 12/11/2010 ??? Tinea Corporis 09/04/2010 Class: Historical ??? CAD 12/22/2009 Class: Chronic Overview Note: LW Modifier: mod RCA, negative nuclear stress test ??? Liver Function Tests Abnormal 12/22/2009 Class: Chronic ??? Bipolar I Dis 09/15/2005 Class: Chronic Overview Note: LW Onset: FAMILY HISTORY OR SICK CONTACTS : No family history on file. SOCIAL HISTORY : History Substance Use Topics ??? Smoking status: Former Smoker -- 0.00 packs/day for 25 years Types: Cigarettes ??? Smokeless tobacco: Former User Quit date: 10/25/2012 Comment: Smoking History Packs/day: ??? Alcohol Use: No Alcoholic Drinks/day: Amount:0; Freq:Never; MEDICATIONS : Outpatient [...] daily (before meals). breakfast and dinner ??? insulin regular (NOVOLIN R) 100 unit/mL Soln Inject 76 Units subcutaneously 2 times daily (before meals). breakfast and dinner 30 mL 2 ??? lisinopril (PRINIVIL, ZESTRIL) 5 mg tablet TAKE 1 TABLET BY MOUTH DAILY . 90 tablet 0 ??? nicotine (NICODERM CQ) 14 mg/[address] 1 patch onto the skin every 24 hours. Remove after 16-24 hours. 28 patch 0 ??? omega-3 fatty acids-fish oil 340-1,000 mg capsule Take 2 capsules by mouth 2 times daily. Indications: HYPERTRIGLYCERIDEMIA 360 capsule 3 ??? risperiDONE (RISPERDAL) 4 mg tablet Take 4 mg by mouth daily (every 24 hours). ??? simvastatin (ZOCOR) 80 mg tablet Take 1 tablet by mouth nightly. 90 tablet 3 No facility-administered medications prior to visit. ALLERGIES: Allergies Allergen Reactions ??? Haloperidol Shock ??? Thiothixene Other (See Comments) Muscle spasm REVIEW OF SYSTEMS : OBJECTIVE : Gen.: Alert, cooperative in no acute distress. He seems focused Vital Signs: BP 117/78 Pulse 124 Wt 221 lb (100.245 kg) BMI 31.71 kg/m2 Eyes: PERRLA, full EOM. . Respiratory: Normal respiratory effort. Lungs are clear to auscultation with good breath sounds bilaterally. Heart: RR without murmurs, rubs, or gallops. Extremities: He has normal shoulder symmetry. No palpable or audible crepitus. Drop sign is negative, although he does have pain. Perry's is negative. He has decreased internal rotation on the left, pain with abduction and flexion on the left. Neurologic: Alert, oriented x3, LABS : Shoulder x-ray deferred. ASSESSMENT /PLAN : Diagnosis (ICD9) and Associated Orders 1. DM w/o complication type II, uncontrolled (250.02) Cholesterol Fraction-LDLD If Trig High, Hemoglobin A1C Glycosylated, Microalbumin Urine Random (UMAR) Chronic 2. Tobacco abuse (305.1) nicotine (NICODERM CQ) 7 mg/24 hr 3. CAD (414.00) Cholesterol Fraction-LDLD If Trig High Chronic 4. Left shoulder pain (719.41) 1. Patient declines additional medication for his shoulder pain. Demonstration of typical range of motion physical therapy strategies provided. He will recheck in 2 weeks if not improved. 2. His other labs will determine his followup. Encouraged him to continue on smoking cessation. documented in this encounter Plan of Treatment Not on filedocumented as of this encounter Visit Diagnoses Diagnosis Type II or unspecified type diabetes jasen litus without mention of complication, uncontrolled - Primary Tobacco abuse ([facility]) Tobacco use disorder Coronary atherosclerosis of unspecified type of vessel, [place] or graft ([facility]) Coronary atherosclerosis of unspecified type of vessel, [place] or graft Left shoulder pain Pain in joint, shoulder region documented in this encounter Care Teams Auto Rental Supervisor Relationship Specialty Start Date End Date Gagandeep Hinojosa MD PCP - General 05/17/12 [facility] [place] [address] Vane Zarate Psychiatrsamantha Psychiatry 03/22/12 documented as of this encounter
--- OUTSIDE RECORDS SUMMARY | 2022-02-12 12:12 | XMS_ITS | Encounter Summary ---
:1970 Author Organization [facility] Address [address] [place] [address] Care Team Providers Name Role Phone Gagandeep Hinojosa MD Primary Care Provider Encounter Details Date Type Department Care Team Description 10/30/2012 Notes/Orders [facility] Estevan Isaacs MD Cardiology [address] [place] [address] [phone] Social History Tobacco Use Types Packs/Day Years Used Date Smoking Tobacco: Never Assessed Sex Assigned at Date Recorded Not on file documented as of this encounter Plan of Treatment Not on filedocumented as of this encounter Visit Diagnoses Not on filedocumented in this encounter Care Teams Restorative Aide Relationship Specialty Start Date End Date Gagandeep Hinojosa MD PCP - General 05/17/12 [address] [place] [address] Vane Zarate Psychiatrist Psychiatry 03/22/12 documented as of this encounter
--- OUTSIDE RECORDS SUMMARY | 2022-02-12 12:13 | XMS_ITS | Encounter Summary ---
:1970 Author [facility] Address [address] [address] Care Team Providers Name Role Phone Gagandeep Hinojosa MD Primary Care Provider Reason for Visit Reason Comments Refill Encounter Details Date Type Department Care Team Description 07/24/2012 Refill [facility] Franck Greene MD Refill SERVICES [address] [facility] [address] [place] [address] [place] [address] (Wo rk) Social History Tobacco Use Types Packs/Day Years Used Date Smoking Tobacco: Never Assessed Sex Assigned at Date Recorded Not on file documented as of this encounter Nursing Notes Ysabel Rosales - 07/25/2012 10:[address] Hinojosa to address refill of Coreg 6.25 mg BID. Is patient to continue taking this med? RX has and cardiology has prescribed this in the past. OV 05/17/12 for diabetes check. Med is pended for #60 with 3 refills. Last qualifying visit listed for October 2011. documented in this encounter Plan of Treatment Not on filedocumented as of this encounter Visit Diagnoses Not on filedocumented in this encounter Care Teams Flight Attendant/Inflight Supervisor Relationship Specialty Start Date End Date Gagandeep Hinojosa MD PCP - General 05/17/12 [address] [place] [address] Vane Zarate Psychiatrist Psychiatry 03/22/12 documented as of this encounter
--- OUTSIDE RECORDS SUMMARY | 2022-02-12 12:13 | XMS_ITS | Encounter Summary ---
:1970 Author Organization [facility] Address [address] [place] [address] Care Team Providers Name Role Phone Lilian Persaud DO Primary Care Provider Reason for Visit Reason Comments Care Coordination Encounter Details Date Type Department Care Team Description 03/09/[facility] Lilian Persaud, Care Coordination [address] [facility] . [address] [place] [address] [place] [address] [phone] (Wo rk) Social History Tobacco Use Types Packs/Day Years Used Date Smoking Tobacco: Never Assessed Sex Assigned at Date Recorded Not on file documented as of this encounter Nursing Notes Judy Pittman RN - 03/14/2012 1:12 PM CST Return phone call from Timurrey. [place]on states he and his have recently returned from [place] and he is interested in care coordination. Rustam notes his BG has been elevated because he has been forced to ration his insulin due to financial constraints. Rustam knows his last A1c was high at 10.6. Rustam is currently using the generic Relion brand from [employer], but has fallen into the Medicare doughnut hole and cannot afford his insulin. Rustam is also interested in working on his diet. I scheduled an appt for care coordination on 03/22/12. I provided my contact information. Judy Pittman RN - 03/09/2012 10:06 AM CST I left a message for Timur asking for a return call with an update on his status. Please transferto [phone]. documented in this encounter Plan of Treatment Not on filedocumented as of this encounter Visit Diagnoses Not on filedocumented in this encounter Care Teams Certified Industrial Hygienist Relationship Specialty Start Date End Date Lilian Persaud DO PCP - General 12/23/10 05/16/12 [address] [facility] [place] [address] documented as of this encounter
--- OUTSIDE RECORDS SUMMARY | 2022-02-12 12:13 | XMS_ITS | Encounter Summary ---
:1970 Author Organization [facility] Address [address] [place] [address] Care Team Providers Name Role Phone Lilian Persaud DO Primary Care Provider Encounter Details Date Type Department Care Team Description 05/08/2012 Notes/Orders Gagandeep Storm Type II or unspecified Medicine MD Joanne type diabetes mellitus [facility] [address] [facility] without mention of [place] [address] Marlena complication, [place] [phone] uncontrolled (Primary [phone] Dx) (Work) Social History Tobacco Use Types Packs/Day Years Used Date Smoking Tobacco: Never Assessed Sex Assigned at Date Recorded Not on file documented as of this encounter Plan of Treatment Not on filedocumented as of this encounter Visit Diagnoses Diagnosis Type II or unspecified type diabetes jasen litus without mention of complication, uncontrolled - Primary documented in this encounter Care Teams Family Physician Relationship Specialty Start Date End Date Lilian Persaud DO PCP - General 12/23/10 05/16/12 [address] [place] [address] Vane Zarate Psychiatrsamantha Psychiatry 03/22/12 documented as of this encounter
--- OUTSIDE RECORDS SUMMARY | 2022-02-12 12:13 | XMS_ITS | Encounter Summary ---
:1970 Author Organization [employer] Address [address] [place] [address] Care Team Providers Name Role Phone Lilian Persaud DO Primary Care Provider Reason for Visit Reason Comments Abscess Encounter Details Date Type Department Care Team Description 04/06/2012 Office Visit Gagandeep Storm Mass on back (Primary Medicine MD Joanne Dx) [facility] [facility] [address] [place] [address] [address] [phone] [place], [place] [address] Social History Tobacco Use Types Packs/Day Years Used Date Smoking Tobacco: Never Assessed Sex Assigned at Date Recorded Not on file documented as of this encounter Progress Notes Gagandeep Hinojosa MD - 04/07/2012 1:00 AM CST CHIEF COMPLAINT: Chief Complaint Patient presents with ??? Abscess SUBJECTIVE : Timur Krishnamurthy is an 42 y.o. male who presents for an increasing mass on his back. He was seen in urgent care at [place] about a week or so ago and diagnosed with an infected sebaceous cyst. His exam at that time showed swelling, modest tenderness, but no redness or fluctuance. He was treated empirically with cephalexin which did very little . He now seems to have a second mass adjacent to the first lesion. Again, he has some modest tenderness no redness and no fever PROBLEM LIST: Patient Active Problem List Diagnoses Date Noted ??? Microalbuminuria [791.0Y] 02/04/2012 ??? LFTs abnormal [790.6CT] 02/02/2012 ??? TX, old [412BB] 09/16/2011 ??? History of PTCA 04/2011 BMS RCA [V45.82AB] 09/16/2011 ??? Morbid obesity [278.01] 09/16/2011 ? ? Hyperlipidemia LDL goal < 70 [272.4DJ] 06/08/2011 ??? S/P angioplasty with stent [V45.82V] 05/26/2011 Overview Note: Apr 2011 ??? Plantar wart [078.12] 05/26/2011 ??? ASHD (arteriosclerotic heart disease) [414.00B] 05/04/2011 ??? Erectile dysfunction [607.84D] 01/22/2011 Overview Note: side effect Risperdal ??? Hypertriglyceridemia [272.1AL] 12/11/2010 Overview Note: >5000 ??? DM w/o complication type II, uncontrolled [250.02] 12/11/2010 ??? Tinea Corporis [110.5] 09/04/2010 Class: Historical ??? Dyslipidemia [272.8] 12/22/2009 Class: Chronic ??? CAD [414.00] 12/22/2009 Class: Chronic Overview Note: LW Modifier: mod RCA, negative nuclear stress test ??? Liver Function Tests Abnormal [794.8] 12/22/2009 Class: Chronic ??? Pain Chest Wall [786.52] 12/22/2009 Class: Chronic ??? Bipolar I Dis [296.7] 09/15/2005 Class: Chronic Overview Note: LW Onset: 90Adm64 FAMILY HISTORY OR SICK CONTACTS : No family history on file. SOCIAL HISTORY : History Substance Use Topics ??? Smoking status: Former Smoker -- 0.0 packs/day for 25 years Types: Cigarettes ??? Smokeless tobacco: Former User Quit date: 04/29/2011 Comment: Smoking History Packs/day: ??? Alcohol Use: No Alcoholic Drinks/day: Amount:0; Freq:Never; MEDICATIONS : Outpatient prescriptions prior to encounter Medication Sig Dispense Refill ??? aspirin 81 mg chewable tablet TAKE 1 TABLET BY MOUTH DAILY . 100 tablet 1 ??? carvedilol (COREG) 6.25 mg tablet Take 1 tablet by mouth 2 times daily (with meals). 60 tablet 11 ??? divalproex (DEPAKOTE) 500 mg EC tablet Take 2,000 mg by mouth DAILY MORNING LAB. Do not cut/crush/chew. Take with food. ??? insulin (BD INSULIN PEN NEEDLE UF SHORT) 31 X 5/16 Ndle Inject 1 Needle subcutaneously. 250.02Use new needle each injection, 4 daily 200 each prn ??? insulin NPH (NOVOLIN N) 100 unit/mL Susp Inject 76 Units subcutaneously 2 times daily (before meals). breakfast and dinner 10 mL 5 ??? insulin regular (NOVOLIN R) 100 unit/mL Soln Inject 76 Units subcutaneously 2 times daily (before meals). breakfast and dinner 10 mL 5 ??? lisinopril (PRINIVIL, ZESTRIL) 5 mg tablet Take 1 tablet by mouth daily (every 24 hours). 90 tablet 1 ??? nicotine (NICODERM CQ) 21 mg/[address] 1 patch onto the skin every 24 hours. Remove after 16-24 hours. ??? omega-3 fatty acids-fish oil 340-1,000 mg capsule Take 2 capsules by mouth 2 times daily. Indications: HYPERTRIGLYCERIDEMIA 360 capsule 3 ??? risperiDONE (RISPERDAL) 4 mg tablet Take 4 mg by mouth daily (every 24 hours). ??? simvastatin (ZOCOR) 80 mg tablet Take 1 tablet by mouth nightly. 90 tablet 3 ALLERGIES: Allergies Allergen Reactions ??? Haloperidol Shock ??? Thiothixene Other (See Comments) Muscle spasm REVIEW OF SYSTEMS : OBJECTIVE : Gen.: Alert, cooperative in no acute distress. He is overweight Vital Signs: There were no vitals taken for this visit. . Back: He has 2 large lumps in the mid thoracic region , one more centrally located, one slightly lateral to the first. They measure approximately 5 cm in diameter. They are somewhat soft, not particularly discrete, at certainly not tender. No erythema appreciated. LABS : Ultrasound is pending ASSESSMENT /PLAN : 1. Mass on back (782.2BR) US Soft Tissue Neck (Standard) Not Thyroid 1. If these are fluid-filled, I&D would be indicated. If they are solid, suggesting a sebaceous cyst or lipoma, excision could be done at his discretion. However, given their size, I would recommend surgical excision by general surgery documented in this encounter Plan of Treatment Not on filedocumented as of this encounter Visit Diagnoses Diagnosis Mass on back - Primary Localized superficial swelling, mass, or lump documented in this encounter Care Teams Cut Off Saw Operator Metal Relationship Specialty Start Date End Date Lilian Persaud DO PCP - General 12/23/10 05/16/12 [address] [place] [address] Vane Zarate Psychiatrsamantha Psychiatry 03/22/12 documented as of this encounter
--- OUTSIDE RECORDS SUMMARY | 2022-02-12 12:13 | XMS_ITS | Encounter Summary ---
:1970 Author Organization [employer] Address [address] [place] [address] Care Team Providers Name Role Phone Lilian Persaud Primary Care Provider Reason for Visit Reason Comments RESULTS, TEST Encounter Details Date Type Department Care Team Description 02/02/2012 Telephone [facility] Stevenson Greene MD RESULTS, TEST [address] [place] [address] [place], [place] [id number] (Wo rk) Social History Tobacco Use Types Packs/Day Years Used Date Smoking Tobacco: Never Assessed Sex Assigned at Date Recorded Not on file documented as of this encounter Nursing Notes Theresa Wilcox LPN - 02/02/2012 4:04 PM CDT Patient given note below from Dr. Greene. he voices understanding and has no further questions at this time. Patient will try to start taking simvastatin on a regular basis so he can get his cholesterol under control. Stevenson Greene MD - 02/02/2012 3:38 PM CDT His LFT are slightly elevated. Please ask him to refrain from alcohol. AST, ALT in 2 weeks. Theresa Wilcox LPN - 02/02/2012 3:23 PM CDT Patient is not currently taking the Gemfibrozil because of the cost of the medication. Patient states that he is taking the Simvastatin 80mg at bedtime and fish oil 2 caps BID but did hold the Simvastatin for a few weeks a while ago due to the cost of some car repairs he had to have done. Theresa Wilcox LPN - 02/02/2012 3:14 PM CDT Message copied by THERESA WILCOX on TueFeb 02, 2012 3:14 PM ------ Message from: SHELDON CAVAZOS Created: TueFeb 02, 2012 2:12 PM CRES[facility]IO Adame, I think Dr. Greene ment to send this to you. ThanksSheldon ----- Message ----- From: Stevenson Grenee MD Sent: 02/02/2012 2:02 PM To: Sheldon Cavazos RN Please verify what he is taking. Is he taking gemfibrozil? documented in this encounter Plan of Treatment Not on filedocumented as of this encounter Visit Diagnoses Diagnosis Nonspecific abnormal results of liver fu nction study - Primary documented in this encounter Care Teams Gullet Slitter Relationship Specialty Start Date End Date Lilian Persaud DO PCP - General 12/23/10 05/16/12 [address] [place] [address] documented as of this encounter
--- OUTSIDE RECORDS SUMMARY | 2022-02-12 12:13 | XMS_ITS | Encounter Summary ---
:1970 Author Organization [employer] Address [address] [place] [address] Care Team Providers Name Role Phone Lilian Persaud DO Primary Care Provider Reason for Visit Reason Comments [facility] Enrollment Encounter Details Date Type Department Care Team Description 03/22/2012 Nursing Visit Corby Reynolds Bipolar I d isorder, most recent episode (or current) unspecified; Medicine Type II or unspecified type diabetes mellitus without mention of complication, uncontrolled; [address] [place] [address] Social History Tobacco Use Types Packs/Day Years Used Date Smoking Tobacco: Never Assessed Sex Assigned at Date Recorded Not on file documented as of this encounter Progress Notes Judy Pittman RN - 03/22/2012 4:28 PM CST Care Coordination Visit Pt: Timur Krishnamurthy Referred by: Lilian Persaud DO Reason for referral: [facility] Enrollment and Care Coordination Family/social support: Rustam states that his and family are very supportive. Rustam receives SSIDisability for chronic mental illness. Patient needs identified: Initial meeting with Rustam today. Rustam states he isn't feeling very well today because of cold sx. 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 Rustam is currently looking for part-time employment. Rustam reports his finances have been very tight because both he and his have not been working. Rustam was forced to ration his insulin because he couldn't afford to take it as directed. As a result, his A1c result was 10.6 back in 01/2012. Rustam was able to restart taking his Relion NPH and Regular insulin, 76 units bid as directed. Rustam has approximately 1 week of insulin left. He is hoping there is a resource available to help cover his insulin costs now that he has reached the [facility].Rustam has been checking his BG tid since 03/14/12, his readings have been steadily improving: Fastin - 184 Preprandial: 141 - 220 Postprandial: 134 - 191 Hypoglycemic episodes: none Rustam is very interested in working on his diet. Rustam wants to lose weight, his weight today is 239.2 lbs. Rustam typically skips breakfast and eats larger lunch and dinner meals. Rustam knows he shouldbe counting his CHO intake, but cannot remember how. Edwin would also like to start exercising again. He knows exercise helps his BG, but hasn't been consistent with his activity. Rustam states that he has been trying to quit smoking, he is very motivated because he knows it is good for his health. He had quit for a little while, but has since resumed. Rustam has not had a cigarette in 2 days and is currently using his Rx nicotine patches. He would like additional information on how smoking affects his diabetes/heart health because of his previous NV and subsequent stent placement. Rustam currently sees a psychiatrist for his medication related to dx Bipolar Disorder. Rustam states that the Depakote and Risperdal both increase his BG. Referrals/recommended resources: I will check into medication resources including the [employer] and[facility]. Patient barrier(s) to learning identified: Finance and Emotional. SHARED PLAN: Rustam agreed to [facility] Enrollment and signed the paperwork. Rustam also completed the verbal disclosure form for [facility] and [facility] so I can see if he qualifies for any medication assistance. I spent considerable time reviewing how to count CHO, serving sizes, menu planning, and how to read nutrition labels using the teach back method with the My Food Plan brochure. Rustam understood why it is important to eat smaller meals throughout the day vs. 2 large meals, and how to count his CHO withreturn demonstration. I also provided multiple handouts including Choose My Plate, Healthy BreakfastChoices, Grocery Shopping Guide, Healthy Snacks, and My Food Public Health Dentist. I reviewed how managing CHO intake and regular exercise decrease BG. Rustam's BG readings have improved significantly since he restarted taking his insulin as directed. Since the cost of Rustam's insulinis a barrier, we decided not to make any adjustments to his insulin at this time. Rather, Rustam willtry to keep his CHO intake at 4-5 CHO choices per meal and increase his activity. Rustam will continue to SMBG tid. I provided Rustam with the Smoking and Diabetes handout and reviewed the increased health risks associated with smoking and diabetes. Rustam will continue to use the Rx nicotine patch as directed. A care plan was initiated and goals were established. Rustam would like to discuss Advanced Care Planning at a future appt. Rustam has my contact information and will call with any questions. I will call Rustam in 2 weeks to discuss his progress and BG readings. documented in this encounter Plan of Treatment Not on filedocumented as of this encounter Visit Diagnoses Diagnosis Bipolar I disorder, most recent episode (or current) unspecified ([facility]) Bipolar I disorder, most recent episode (or current) unspecified Type II or unspecified type diabetes jasen litus without mention of complication, uncontrolled S/P angioplasty with stent Postsurgical percutaneous transluminal c oronary angioplasty status documented in this encounter Care Teams Set Designer Relationship Specialty Start Date End Date Lilian Persaud DO PCP - General 12/23/10 05/16/12 [address] [place] [address] Vane Zarate Psychiatrsamantha Psychiatry 03/22/12 documented as of this encounter
--- OUTSIDE RECORDS SUMMARY | 2022-02-12 12:13 | XMS_ITS | Encounter Summary ---
:1970 Author Organization [employer] Address [address] [place] [address] Care Team Providers Name Role Phone Gagandeep Hinojosa MD Primary Care Provider Reason for Visit Reason Comments Care Coordination Encounter Details Date Type Department Care Team Description 05/02/2012 Telephone [facility] Lilian Persaud DO Care Coordination [address] [facility] . [address] [place] [address] [place] [address] [phone] (Wo rk) Social History Tobacco Use Types Packs/Day Years Used Date Smoking Tobacco: Never Assessed Sex Assigned at Date Recorded Not on file documented as of this encounter Nursing Notes Vanessa Pond LPN - 05/23/2012 1:43 PM CST Medical Home Care Conference The medical home multidisciplinary team, including Lilian Persaud DO convened to discuss Timur Krishnamurthy. The goals of the conference being to improve Timur???s health outcomes, reduce total cost of care and provide a coordinated care experience for him. Timur is a participant in the [employer]. The following parameters were addressed: Care Transitions: Timur is enrolled in health fci: yes, Candidate? yes Number of active medications in EPIC:Assessment: The problem list in EPIC was updated: yes Health Maintenance was reviewed and updated: yes Timur is failing clinical markers for the following health condition(s): Diabetes The patient is due for: Updated labwork, labs pre-entered yes Plan: It is determined that Timur will benefit from the following: Referral to Junior Automation Engineer yes This encounter is routed to the appropriate team members for follow-up and continuity of care. Judy Khanna note complete pt has been seen in clinic and referred to Care coordination documented in this encounter Plan of Treatment Not on filedocumented as of this encounter Visit Diagnoses Diagnosis Anemia Anemia, unspecified Type II or unspecified type diabetes jasen litus without mention of complication, uncontrolled documented in this encounter Care Teams Director Of Restaurant Relationship Specialty Start Date End Date Gagandeep Hinojosa MD PCP - General 05/17/12 [address] [place] [address] Vane Zarate Psychiatrist Psychiatry 03/22/12 documented as of this encounter
--- OUTSIDE RECORDS SUMMARY | 2022-02-12 12:13 | XMS_ITS | Encounter Summary ---
:1970 Author Organization [employer] Address [address] [place] [address] Care Team Providers Name Role Phone Gagandeep Hinojosa MD Primary Care Provider Encounter Details Date Type Department Care Team Description 05/17/2012 Lab Visit [place] [facility] Encounter for long-term [address] (current) [place] [address] medications [phone] Social History Tobacco Use Types Packs/Day Years Used Date Smoking Tobacco: Never Assessed Sex Assigned at Date Recorded Not on file documented as of this encounter Plan of Treatment Not on filedocumented as of this encounter Procedures Procedure Name Priority Date/Time Associated Diagnosis Comme nts CARNITINE FREE AND Routine 05/17/2012 10:35 Encounter for Resu lts for this TOTAL AM ORDER FULFILLMENT SPECIALIST long-term (current) procedur e are in use of other the results medications section. COMPLETE BLOOD Routine 05/17/2012 10:35 Encounter for Results for this COUNT-W/DIFF AM ORDER FULFILLMENT SPECIALIST long-term (current) procedur e are in use of other the results medications section. DIFFERENTIAL Routine 05/17/2012 10:35 Results for this AM ORDER FULFILLMENT SPECIALIST procedure are i n the results section. AMYLASE Routine 05/17/2012 10:35 Encounter for Results fo r this AM ORDER FULFILLMENT SPECIALIST long-term (current) procedur e are in use of other the results medications section. VALPROIC ACID Routine 05/17/2012 10:35 Encounter for Results f or this (DEPAKENE) AM ORDER FULFILLMENT SPECIALIST long-term (current) procedur e are in use of other the results medications section. LIPASE Routine 05/17/2012 10:35 Encounter for Results fo r this AM ORDER FULFILLMENT SPECIALIST long-term (current) procedur e are in use of other the results medications section. AMMONIA Routine 05/17/2012 10:35 Encounter for Results fo r this AM ORDER FULFILLMENT SPECIALIST long-term (current) procedur e are in use of other the results medications section. ALT (SGPT) Routine 05/17/2012 10:35 Encounter for Results fo r this AM ORDER FULFILLMENT SPECIALIST long-term (current) procedur e are in use of other the results medications section. AST Routine 05/17/2012 10:35 Encounter for Results fo r this AM ORDER FULFILLMENT SPECIALIST long-term (current) procedur e are in use of other the results medications section. documented in this encounter Results Differential (05/17/2012 10:35 AM ORDER FULFILLMENT SPECIALIST) athologist Signature Absolute 2.7 1.8 - 8.0 HP CONVERSION Neutrophils k/cmm Absolute 3.1 1.1 - 4.0 HP CONVERSION Lymphocytes k/cmm Absolute 0.8 0.2 - 0.8 HP CONVERSION Monocytes k/cmm Absolute 0.1 0.0 - 0.5 HP CONVERSION Eosinophils k/cmm Absolute 0.0 0.0 - 0.2 HP CONVERSION Basophils k/cmm Specimen Anatomical Collection Method Collection Time Receive d Time (Source) Location / / Volume Laterality 05/17/2012 10:35 05/17/2012 AM ORDER FULFILLMENT SPECIALIST 10:35 AM ORDER FULFILLMENT SPECIALIST Narrative HP CONVERSION - 05/17/2012 11:04 AM ORDER FULFILLMENT SPECIAL[place] [address] Vane Zarate MD LAB_1 Performing Organization Address City/State/ZIP Code Phon e Number HP CONVERSION CARNITINE FREE AND TOTAL (05/17/2012 10:35 AM ORDER FULFILLMENT SPECIALIST) athologist Signature Carnitine, Free 29 25 - 60 HP CONVERSION umol/L Carnitine, 41 34 - 86 HP CONVERSION Total umol/L Carnitine 12 5 - 29 HP CONVERSION Esterified umol/L Carnitine 0.4 0.1 - 1.0 HP CONVERSION Kristen/Free Ratio Specimen Anatomical Collection Method Collection Time Receive d Time (Source) Location / / Volume Laterality 05/17/2012 10:35 05/17/2012 9:11 AM ORDER FULFILLMENT SPECIALIST PM ORDER FULFILLMENT SPECIALIST Narrative HP CONVERSION - 05/20/2012 8:41 AM ORDER FULFILLMENT SPECIALIST Performed at [facility] [address] [place] [address] Vane Zarate MD LAB_1 Performing Organization Address City/State/ZIP Code Phon e Number HP CONVERSION Ammonia (05/17/2012 10:35 AM ORDER FULFILLMENT SPECIALIST) athologist Signature Ammonia, Blood 43 0 - 44 HP CONVERSION umol/L Specimen Anatomical Collection Method Collection Time Receive d Time (Source) Location / / Volume Laterality 05/17/2012 10:35 05/17/2012 3:54 AM ORDER FULFILLMENT SPECIALIST PM ORDER FULFILLMENT SPECIALIST Vane Zarate MD LAB_1 Performing Organization Address City/State/ZIP Code Phon e Number HP CONVERSION Valproic Acid (Depakene) (05/17/2012 10:35 AM ORDER FULFILLMENT SPECIALIST) [facility] gist Method Time Signature Date Last Dose HP CONVERSION Valproic Acid Time Last Dose 0930 HP CONVERSION Valproic Acid Valproic 60 50 - 100 HP CONVERSION Acid/Depakene ug/mL (Valp) Specimen Anatomical Collection Method Collection Time Receive d Time (Source) Location / / Volume Laterality 05/17/2012 10:35 05/17/2012 4:01 AM ORDER FULFILLMENT SPECIALIST PM ORDER FULFILLMENT SPECIALIST Vane Zarate MD LAB_1 Performing Organization Address City/State/ZIP Code Phon e Number HP CONVERSION Lipase (05/17/2012 10:35 AM ORDER FULFILLMENT SPECIALIST) athologist Signature Lipase 69 5 - 70 U/L HP CONVERSION Specimen Anatomical Collection Method Collection Time Receive d Time (Source) Location / / Volume Laterality 05/17/2012 10:35 05/17/2012 3:06 AM ORDER FULFILLMENT SPECIALIST PM ORDER FULFILLMENT SPECIALIST Narrative HP CONVERSION - 05/17/2012 4:16 PM ORDER FULFILLMENT SPECIALIST Performed at [facility], [address] [place] [address] Vane Zarate MD LAB_1 Performing Organization Address City/State/ZIP Code Phon e Number HP CONVERSION Amylase (05/17/2012 10:35 AM ORDER FULFILLMENT SPECIALIST) athologist Signature Amylase Serum 40 25 - 115 HP CONVERSION U/L Specimen Anatomical Collection Method Collection Time Receive d Time (Source) Location / / Volume Laterality 05/17/2012 10:35 05/17/2012 3:06 AM ORDER FULFILLMENT SPECIALIST PM ORDER FULFILLMENT SPECIALIST Narrative HP CONVERSION - 05/17/2012 4:16 PM ORDER FULFILLMENT SPECIALIST Performed at [facility], [address] [place] [address] Vane Zarate MD LAB_1 Performing Organization Address [facility] Code Phon e Number HP CONVERSION ALT (SGPT) (05/17/2012 10:35 AM ORDER FULFILLMENT SPECIALIST) [facility] Method Time Signature Alanine 38 4 - 55 HP CONVERSION Aminotransferase U/L Specimen Anatomical Collection Method Collection Time Receive d Time (Source) Location / / Volume Laterality 05/17/2012 10:35 05/17/2012 3:06 AM ORDER FULFILLMENT SPECIALIST PM ORDER FULFILLMENT SPECIALIST Narrative HP CONVERSION - 05/17/2012 4:16 PM ORDER FULFILLMENT SPECIALIST Performed at [facility], [address] [place] [address] Vane Zarate MD LAB_1 Performing Organization Address [facility] Phon e Number HP CONVERSION AST (05/17/2012 10:35 AM ORDER FULFILLMENT SPECIALIST) [facility] Method Time Signature Aspartate 32 0 - 45 HP CONVERSION Aminotransferase U/L Specimen Anatomical Collection Method Collection Time Receive d Time (Source) Location / / Volume Laterality 05/17/2012 10:35 05/17/2012 3:06 AM ORDER FULFILLMENT SPECIALIST PM ORDER FULFILLMENT SPECIALIST Narrative HP CONVERSION - 05/17/2012 4:16 PM ORDER FULFILLMENT SPECIALIST Performed at [facility], [address] [place] [address] Vane Zarate MD LAB_1 Performing Organization Address [facility] Phon e Number HP CONVERSION Hemogram/Plts/Diff (05/17/2012 10:35 AM ORDER FULFILLMENT SPECIALIST) P athologist Signature White Blood Cell 6.7 3.8 - 11.0 HP CONVERSIO N Count k/cmm Red Blood Cell 5.00 4.20 - HP CONVERSION Count 5.90 m/cmm Hemoglobin 15.2 13.4 - HP CONVERSION 17.5 g/dL Hematocrit 45.1 39.0 - HP CONVERSION 51.0 % Mean Corpuscular 90.4 80.0 - HP CONVERSION Volume 100.0 fL RDW 11.5 11.0 - HP CONVERSION 15.0 % Platelet Count 252 140 - 450 HP CONVERSION k/cmm Specimen Anatomical Collection Method Collection Time Receive d Time (Source) Location / / Volume Laterality 05/17/2012 10:35 05/17/2012 AM ORDER FULFILLMENT SPECIALIST 10:35 AM ORDER FULFILLMENT SPECIALIST Narrative HP CONVERSION - 05/17/2012 11:04 AM ORDER FULFILLMENT SPECIALIST Performed at [facility], [address] [place] [address] [address] Zarate at [phone], 05/20/2012,09: 43, by DANNY Vane Zarate MD LAB_1 Performing Organization Address City/State/ZIP Code Phon e Number HP CONVERSION documented in this encounter Visit Diagnoses Diagnosis Encounter for long-term (current) use of other medications documented in this encounter Care Teams Television Director Relationship Specialty Start Date End Date Gagandeep Hinojosa MD PCP - General 05/17/[address] [place] [address] [place] [id number] Vane Zarate Psychiatrist Psychiatry 03/22/12 documented as of this encounter
--- OUTSIDE RECORDS SUMMARY | 2022-02-12 12:13 | XMS_ITS | Encounter Summary ---
:1970 Author Organization [facility] Address [address] [place] [address] Care Team Providers Name Role Phone Gagandeep Hinojosa MD Primary Care Provider Encounter Details Date Type Department Care Team Description 05/17/2012 Lab Visit [facility] Type II or unspecified type [address] [facility] . diabetes mellitus without [place] [address] mention of complication, uncontrolled Social History Tobacco Use Types Packs/Day Years Used Date Smoking Tobacco: Never Assessed Sex Assigned at Date Recorded Not on file documented as of this encounter Plan of Treatment Not on filedocumented as of this encounter Procedures Procedure Name Priority Date/Time Associated Diagnosis Comme nts HGB A1C Routine 05/17/2012 10:35 AM Type II or unspecifie d Results for this BLADE BALANCER type diabetes mellitus proce dure are in without mention of the resul ts complication, section. uncontrolled ([facility]) documented in this encounter Results (ABNORMAL) Hgb A1c (05/17/2012 10:35 AM BLADE BALANCER) P athologist Signature HGB A1C 10.2 (H) 0.0 - 6.0 % HP CONVERSION Specimen Anatomical Collection Method Collection Time Receive d Time (Source) Location / / Volume Laterality 05/17/2012 10:35 05/17/2012 4:14 AM BLADE BALANCER PM BLADE BALANCER Gagandeep Hinojosa MD LAB_1 Performing Organization Address City/State/ZIP Code Phon e Number HP CONVERSION documented in this encounter Visit Diagnoses Diagnosis Type II or unspecified type diabetes jasen litus without mention of complication, uncontrolled documented in this encounter Care Teams Grain Operations Manager Relationship Specialty Start Date End Date Gagandeep Hinojosa MD PCP - General 05/17/12 1415 [facility] [place] [address] Vane Zarate Psychiatrist Psychiatry 03/22/12 documented as of this encounter
--- OUTSIDE RECORDS SUMMARY | 2022-02-12 12:13 | XMS_ITS | Encounter Summary ---
:1970 Author Organization [employer] Address [address] [place] [address] Care Team Providers Name Role Phone Lilian Persaud DO Primary Care Provider Encounter Details Date Type Department Care Team Description 02/01/2012 Lab Visit [facility] Type II or unspecified type 1415 [facility] . diabetes mellitus without [place] [address] mention of complication, uncontrolled Social History Tobacco Use Types Packs/Day Years Used Date Smoking Tobacco: Never Assessed Sex Assigned at Date Recorded Not on file documented as of this encounter Plan of Treatment Not on filedocumented as of this encounter Procedures Procedure Name Priority Date/Time Associated Diagnosis Comme nts ALBUMIN/CREAT RATIO Routine 02/01/2012 12:05 Type II or Resu lts for this PM CDT unspecified type procedure a re in diabetes mellitus the result s without mention of section. complication, uncontrolled ([facility]) HGB A1C Routine 02/01/2012 11:50 Type II or Results for this AM CDT unspecified type procedure a re in diabetes mellitus the result s without mention of section. complication, uncontrolled ([facility]) documented in this encounter Results (ABNORMAL) Microalb/Creat Ratio (02/01/2012 12:05 PM CDT) [facility] Method Time Signature Microalbumin 93.0 mg/L HP CONVERSION Urine U Creat Random 192 mg/dL HP CONVERSION Microalbumin/Cre 48.4 (H) 0.0 - HP CONVERSION atinine Ratio 30.0 Specimen Anatomical Collection Method Collection Time Receive d Time (Source) Location / / Volume Laterality 02/01/2012 12:05 02/01/2012 3:27 PM CDT PM CDT Lilian Homa Cori SAL LAB_1 Performing Organization Address City/State/ZIP Code Phon e Number HP CONVERSION (ABNORMAL) Hgb A1c (02/01/2012 11:50 AM CDT) P athologist Signature HGB A1C 10.6 (H) 0.0 - 6.0 % HP CONVERSION Specimen Anatomical Collection Method Collection Time Receive d Time (Source) Location / / Volume Laterality 02/01/2012 11:50 02/01/2012 3:27 AM CDT PM CDT Lilian Homa Cori SAL LAB_1 Performing Organization Address [facility] Phon e Number HP CONVERSION documented in this encounter Visit Diagnoses Diagnosis Type II or unspecified type diabetes jasen litus without mention of complication, uncontrolled documented in this encounter Care Teams Production Control Planner Relationship Specialty Start Date End Date Lilian Persaud DO PCP - General 12/23/10 05/16/12 [address] [place] [address] documented as of this encounter
--- OUTSIDE RECORDS SUMMARY | 2022-02-12 12:13 | XMS_ITS | Encounter Summary ---
:1970 Author Organization [facility] Address [address] [place] [address] Care Team Providers Name Role Phone Lilian Persaud DO Primary Care Provider Reason for Visit Reason Comments Refill Encounter Details Date Type Department Care Team Description 05/04/2012 Refill [facility] Lilian Persaud, Refill [address] [address] [place] [address] [place] [address] [phone] (Wo rk) Social History Tobacco Use Types Packs/Day Years Used Date Smoking Tobacco: Never Assessed Sex Assigned at Date Recorded Not on file documented as of this encounter Nursing Notes Denita Reyes, RN - 05/05/2012 2:19 PM CST Renewed medication per medication refill protocol. Prescription Refills Approved Prescriptions Disp Refills ??? lisinopril (PRINIVIL, ZESTRIL) 5 mg tablet 90 tablet 0 Sig: TAKE 1 TABLET BY MOUTH DAILY . Authorizing Provider: FLORI LEBLANC Ordering User: DENITA REYES Appt scheduled for 05/09/12. NICAL SALES ASSOCIATE Cordelia Leyva RN - 05/05/2012 9:26 AM CST last OV 02/01/12. Plan was to see patient and have labs done in 3 months. Left message to call back to schedule appt. documented in this encounter Plan of Treatment Not on filedocumented as of this encounter Visit Diagnoses Not on filedocumented in this encounter Care Teams Investor Relations Analyst Relationship Specialty Start Date End Date Lilian Persaud DO PCP - General 12/23/10 05/16/12 [address] [place] [address] Vane Zarate Psychiatrsamantha Psychiatry 03/22/12 documented as of this encounter
--- OUTSIDE RECORDS SUMMARY | 2022-02-12 12:13 | XMS_ITS | Encounter Summary ---
:1970 Author Organization [employer] Address [address] [place] [address] Care Team Providers Name Role Phone Lilian Persaud DO Primary Care Provider Reason for Visit Reason Comments CYST Encounter Details Date Type Department Care Team Description 04/05/2012 Nurse Triage [facility] Lilian Persaud, CYST [address] [address] [place] [address] [place] [address] [phone] (Wo rk) Social History Tobacco Use Types Packs/Day Years Used Date Smoking Tobacco: Never Assessed Sex Assigned at Date Recorded Not on file documented as of this encounter Nursing Notes Yoana Riley RN - 04/05/2012 8:58 PM CST Protocol: SKIN LUMP OR LOCALIZED [id number] Affirmative: [1] Swelling is painful to touch AND [2] no fever Disposition of See Physician Within 24 Hours suggested. Patient calling. Was seen at [facility] last week for infected sabascious cyst on his spine in the middle of his back and given antibiotics. Today he has the same cyst that is the size of a silver dollar and now noticed that there is another lump just to the right of the original lump. Denies fever, redness, red streaking, or pus. States it is painful to touch. PNNL advised to be seen for re check. Home care advice given. Appointment scheduled. Patient agrees with plan and call completed. documented in this encounter Plan of Treatment Not on filedocumented as of this encounter Visit Diagnoses Not on filedocumented in this encounter Care Teams Bulk Sugar Handler Relationship Specialty Start Date End Date Lilian Persaud DO PCP - General 12/23/10 05/16/12 [address] [place] [address] Vane Zarate Psychiatrs[facility]antha Psychiatry 03/22/12 documented as of this encounter
--- OUTSIDE RECORDS SUMMARY | 2022-02-12 12:13 | XMS_ITS | Encounter Summary ---
:1970 Author Organization [facility] Address [address] [place] [address] Care Team Providers Name Role Phone Lilian Persaud DO Primary Care Provider Reason for Visit Reason Comments Appt. Needed Encounter Details Date Type Department Care Team Description 11/16/2011 Telephone [facility] Lilian Persaud DO Appt. Needed 14[address] [facility] . [address] [place] [address] [place] [address] [phone] (Wo rk) Social History Tobacco Use Types Packs/Day Years Used Date Smoking Tobacco: Never Assessed Sex Assigned at Date Recorded Not on file documented as of this encounter Nursing Notes Freya Hess - 11/16/2011 10:36 AM CDT Left vm for pt. informing that he is due for lab work, especially A1c (last done 07/06/2011). Provided lab appt. number for pt. to set up appt. documented in this encounter Plan of Treatment Not on filedocumented as of this encounter Visit Diagnoses Not on filedocumented in this encounter Care Teams Central Supply Technician Supervisor Relationship Specialty Start Date End Date Lilian Persaud DO PCP - General 12/23/10 05/16/12 1414 [facility] [place] [address] documented as of this encounter
--- OUTSIDE RECORDS SUMMARY | 2022-02-12 12:13 | XMS_ITS | Encounter Summary ---
:1970 Author Organization [employer] Address [address] [place] [address] Care Team Providers Name Role Phone Lilian Persaud DO Primary Care Provider Encounter Details Date Type Department Care Team Description 02/01/2012 Lab Visit [facility] Coronary atherosclerosis of unspecified type of vessel, citizen potawatomi or graft; [address] Other disorders of lipoid me tabolism; [place] [address] Nonspecific abnormal results of liver function study; [phone] S/P angioplasty with stent Social History Tobacco Use Types Packs/Day Years Used Date Smoking Tobacco: Never Assessed Sex Assigned at Date Recorded Not on file documented as of this encounter Progress Notes Stevenson Greene MD - 02/02/2012 2:02 PM CDT Quick Note: Please verify what he is taking. Is he taking gemfibrozil? documented in this encounter Miscellaneous Notes Miscellaneous - 06/04/2016 1:59 PM CSTNotes Recorded by Stevenson Greene MD on 02/02/2012 at 2:02 PMPlease verify what he is taking. Is he taking gemfibrozil? AL GUNNER SUPERINTENDENT Miscellaneous - 06/04/2016 1:59 PM CSTNotes Recorded by Stevenson Greene MD on 02/02/2012 at 2:02 PMPlease verify what he is taking. Is he taking gemfibrozil? AL GUNNER SUPERINTENDENT Miscellaneous - 06/04/2016 1:59 PM CSTNotes Recorded by Stevenson Greene MD on 02/02/2012 at 2:02 PMPlease verify what he is taking. Is he taking gemfibrozil? AL GUNNER SUPERINTENDENT Miscellaneous - 06/04/2016 1:59 PM CSTNotes Recorded by Stevenson Greene MD on 02/02/2012 at 2:02 PMPlease verify what he is taking. Is he taking gemfibrozil? AL GUNNER SUPERINTENDENT documented in this encounter Plan of Treatment Not on filedocumented as of this encounter Procedures Procedure Name Priority Date/Time Associated Diagnosis Comme nts LIPID PANEL AND Routine 02/01/2012 12:00 Coronary Results for this DIRECT LDL(IF PM CDT atherosclerosis of procedur e are in NEEDED) unspecified type of the resu lts vessel, citizen potawatomi or graft sect ion. (HRC) Other disorders of lipoid metabolis m (HRC) Nonspecific abnormal results of liver function study S/P angioplasty with stent ALT (SGPT) Routine 02/01/2012 12:00 Coronary Results for this PM CDT atherosclerosis of procedure are in unspecified type of the resu lts vessel, citizen potawatomi or graft sect ion. (HRC) Other disorders of lipoid metabolis m (HRC) Nonspecific abnormal results of liver function study S/P angioplasty with stent AST Routine 02/01/2012 12:00 Coronary Results for this PM CDT atherosclerosis of procedure are in unspecified type of the resu lts vessel, citizen potawatom[place] or graft sect ion. (HRC) Other disorders of lipoid metabolis m (HRC) Nonspecific abnormal results of liver function study S/P angioplasty with stent CK, TOTAL Routine 02/01/2012 12:00 Coronary Results for this PM CDT atherosclerosis of procedure are in unspecified type of the resu lts vessel, citizen potawatomi or graft sect ion. (HRC) Other disorders of lipoid metabolis m (HRC) Nonspecific abnormal results of liver function study S/P angioplasty with stent documented in this encounter Results CK, Total (02/01/2012 12:00 PM CDT) athologist Signature Creatine Kinase 119 0 - 225 HP CONVERSION U/L Specimen Anatomical Collection Method Collection Time Receive d Time (Source) Location / / Volume Laterality 02/01/2012 12:00 02/01/2012 3:05 PM CDT PM CDT Narrative HP CONVERSION - 02/01/2012 4:14 PM CDT Performed at [facility], [address] [place] [address] Transcriptions 06/04/2016 1:59 PM CSTNotes Recorded by Stevenson Greene MD on 02/02/2012 at 2:02 PMPlease verify what he is taking. Is he taking gemfibrozil? Stevenson Greene MD LAB_1 Performing Organization Address [facility] Phon e Number HP CONVERSION (ABNORMAL) ALT (SGPT) (02/01/2012 12:00 PM CDT) [facility] Method Time Signature Alanine 73 (H) 4 - 55 HP CONVERSION Aminotransferase U/L Specimen Anatomical Collection Method Collection Time Receive d Time (Source) Location / / Volume Laterality 02/01/2012 12:00 02/01/2012 3:05 PM CDT PM CDT Narrative HP CONVERSION - 02/01/2012 4:14 PM CDT Performed at [facility], [address] [place] [address] Transcriptions 06/04/2016 1:59 PM CSTNotes Recorded by Stevenson Greene MD on 02/02/2012 at 2:02 PMPlease verify what he is taking. Is he taking gemfibrozil? Stevenson Greene MD LAB_1 Performing Organization Address [facility] Phon e Number HP CONVERSION (ABNORMAL) AST (02/01/2012 12:00 PM CDT) [facility] Method Time Signature Aspartate 55 (H) 0 - 45 HP CONVERSION Aminotransferase U/L Specimen Anatomical Collection Method Collection Time Receive d Time (Source) Location / / Volume Laterality 02/01/2012 12:00 02/01/2012 3:05 PM CDT PM CDT Narrative HP CONVERSION - 02/01/2012 4:14 PM CDT Performed at [facility], [address] [place] [address] Transcriptions 06/04/2016 1:59 PM CSTNotes Recorded by Stevenson Greene MD on 02/02/2012 at 2:02 PMPlease verify what he is taking. Is he taking gemfibrozil? Stevenson Greene MD LAB_1 Performing Organization Address [facility] Phon e Number HP CONVERSION (ABNORMAL) Lipid Panel and Direct LDL(If Needed) (02/01/2012 12:00 PM CDT) [facility] gist Method Time Signature Cholesterol 203 (H) 0 - 200 HP CONVERSION mg/dL Triglycerides 266 (H) 0 - 149 HP CONVERSION mg/dL HDL Cholesterol 28 (L) >39 mg/dL HP CONVERSION Cholesterol/HDL 7.3 HP CONVERSION Ratio Screen LDL Calculated 122 19 - 130 HP CONVERSION mg/dL Length Of Fast 12.5 HP CONVERSION Specimen Anatomical Collection Method Collection Time Receive d Time (Source) Location / / Volume Laterality 02/01/2012 12:00 02/01/2012 3:05 PM CDT PM CDT Narrative HP CONVERSION - 02/01/2012 4:14 PM CDT Performed at [facility], [address] [place] [address] Transcriptions 06/04/2016 1:59 PM CSTNotes Recorded by Stevenson Greene MD on 02/02/2012 at 2:02 PMPlease verify what he is taking. Is he taking gemfibrozil? Stevenson Greene MD LAB_1 Performing Organization Address [facility] Phon e Number HP CONVERSION documented in this encounter Visit Diagnoses Diagnosis Coronary atherosclerosis of unspecified type of vessel, citizen potawatomi or graft ([facility]) Coronary atherosclerosis of unspecified type of vessel, citizen potawatomi or graft 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 Nonspecific abnormal results of liver fu nction study S/P angioplasty with stent Postsurgical percutaneous transluminal c oronary angioplasty status documented in this encounter Care Teams Sterile Processing Technician Relationship Specialty Start Date End Date Lilian Persaud DO PCP - General 12/23/10 05/16/12 [address] [place] [address] documented as of this encounter
--- OUTSIDE RECORDS SUMMARY | 2022-02-12 12:13 | XMS_ITS | Encounter Summary ---
:1970 Author Organization [employer] Address [address] [place] [address] Care Team Providers Name Role Phone Gagandeep Hinojosa MD Primary Care Provider Reason for Visit Reason Comments Diabetes Encounter Details Date Type Department Care Team Description 05/24/[address] [facility] Judy Pittman RN Diabetes [address] [facility] . [address] [place] [address] [place] [address] [phone] Social History Tobacco Use Types Packs/Day Years Used Date Smoking Tobacco: Never Assessed Sex Assigned at Date Recorded Not on file documented as of this encounter Nursing Notes Judy Pittman RN - 05/24/2012 2:15 PM CST RN Stain Applicator - Diabetes Phone Follow-Up Current diabetes medication regimen: Novolin R 76 units bid before meals Novolin N 76 units bid before meals CURRENT GLUCOSE PATTERNS: Rustam is spending time with his mother over lunch and doesn't have his record book with him, these readings are from memory. Before breakfast: 120 - 130 Before lunch: 120 - 130 Before dinner: 160 - 170 2 hours postmeal: 155 - 160 Hypoglycemia (previous two weeks): none Assessment/education: Rustam states that he has been doing very well. He has been carefully watching his CHO intakes, trying to stay between 4-5 CHO choices per meal. He does not recall any recent readings over 200. Rustam has bee taking his insulin as Rx, now that it is covered by covered his insurance. Rustam hasn't been walking as much as before, but maintains walking 2-3 times per week for 45- 60 minutes. Rustam has been looking for work, trying to find a part-time job. Rustam has been over to [employer], they have set up with some temporary jobs. Rustam is hopeful he will find something soon. Shared plan: Continue insulin as prescribed. Continue SMBG before meals and 2 hours after meals. Continue walking, as much as his schedule will allow. Rustam has my contact information, he will follow up by phone as needed. Call if sx of hypoglycemia or glucose readings < 70 mg/dL. Rustam verbalized understanding and agreed with plan of care and follow up. documented in this encounter Plan of Treatment Not on filedocumented as of this encounter Visit Diagnoses Not on filedocumented in this encounter Care Teams Paid Search Marketing Analyst Relationship Specialty Start Date End Date Gagandeep Hinojosa MD PCP - General 05/17/12 [facility] [place] [address] Vane Zarate Psychiatrist Psychiatry 03/22/12 documented as of this encounter
--- OUTSIDE RECORDS SUMMARY | 2022-02-12 12:13 | XMS_ITS | Encounter Summary ---
:1970 Author Organization [facility] Address [address] [place] [address] Care Team Providers Name Role Phone Lilian Persaud DO Primary Care Provider Reason for Visit Reason Comments Appt. Needed Encounter Details Date Type Department Care Team Description 01/25/2012 Telephone [facility] Lilian Persaud DO Appt. Needed [address] [facility] . [address] [facility] [place] [address] [place] [address] [phone] (Wo rk) Social History Tobacco Use Types Packs/Day Years Used Date Smoking Tobacco: Never Assessed Sex Assigned at Date Recorded Not on file documented as of this encounter Nursing Notes Freya Hess - 01/25/2012 4:07 PM CDT Spoke with pt. and informed him that he is due for Diabetes check with labs. Pt. stated he would schedule appt. this month. documented in this encounter Plan of Treatment Not on filedocumented as of this encounter Visit Diagnoses Not on filedocumented in this encounter Care Teams Software Test And Validation Engineer Relationship Specialty Start Date End Date Lilian Persaud DO PCP - General 12/23/10 05/16/12 [facility] [place] [address] documented as of this encounter
--- OUTSIDE RECORDS SUMMARY | 2022-02-12 12:13 | XMS_ITS | Encounter Summary ---
:1970 Author Organization [employer] Address [address] [place] [address] Care Team Providers Name Role Phone Lilian Persaud DO Primary Care Provider Reason for Visit Reason Comments Diabetes Encounter Details Date Type Department Care Team Description 03/29/2012 Telephone [facility] Lilian Persaud DO Diabetes 14[address] [facility] . [address] [place] [address] [place] [address] [phone] (Wo rk) Social History Tobacco Use Types Packs/Day Years Used Date Smoking Tobacco: Never Assessed Sex Assigned at Date Recorded Not on file documented as of this encounter Nursing Notes Judy Pittman RN - 03/29/2012 10:42 AM CST Left a message for Rustam for a return call. Please transfer to [phone]. RN Application Development Team Lead - Diabetes Phone Follow-Up Current diabetes medication regimen: Novolin R 76 units bid before meals Novolin N 76 units bid before meals Assessment/education: Rustam called back. Rustam states that he feels really good. He has been exercising regularly the past2 days, going to a local walking track. Rustam has been walking 2 miles each day for the last 2 days and reports he has a lot more energy and plans to continue this regimen. Rustam has not made any changes in his diet, but is trying to watch his CHO intake. He would like to lose weight and knows he should stay around 4 CHO choices per meal. Rustam notes his fasting BG readings have remained the same since his last visit, but he did go yesterday morning. He thinks the increase in his fasting BG yesterday was probably from eating later at night, just prior to going to bed. He continues to SMBG tid. He has not had any sx of hypoglycemia. Rustam is almost out of insulin and cannot afford to buy more at this time. He did receive a call from Amy at the [employer], but when he called her back he had to leave a message and hasn't heard back from her since then. Shared plan: Rustam will continue to walk 2 miles daily at the local walking track. Rustam will continue to SMBG tid and record readings. Rustam will count his CHO choices and try to stay at 4 choice per meal, adding extra protein or non-starchy vegetables for increased hunger. Rustam will call Amy at the [employer] again and inform her of the urgency/let her know how much insulin he has left. Call if sx of hypoglycemia or glucose readings < 70 mg/dL. Call me next week to schedule a follow up appt. I printed off the [employer] Patient Assistance application to complete at the follow up visit. Rustam verbalized understanding and agreed with plan of care and follow up. documented in this encounter Plan of Treatment Not on filedocumented as of this encounter Visit Diagnoses Not on filedocumented in this encounter Care Teams Debt Recovery Officer Relationship Specialty Start Date End Date Lilian Persaud DO PCP - General 12/23/10 05/16/12 [address] [place] [address] Vane Zarate Psychiatrsamantha Psychiatry 03/22/12 documented as of this encounter
--- OUTSIDE RECORDS SUMMARY | 2022-02-12 12:13 | XMS_ITS | Encounter Summary ---
:1970 Author Organization [facility] Address [address] [place] [address] Care Team Providers Name Role Phone Gagandeep Hinojosa MD Primary Care Provider Encounter Details Date Type Department Care Team Description 05/17/2012 Notes/Orders Vane Durbin, Encounter for long-term 1415 KaufmanDilip Bonds MD (current) use of other [place] [address] (Primary [phone] [address]) [place] [address] Social History Tobacco Use Types Packs/Day Years Used Date Smoking Tobacco: Never Assessed Sex Assigned at Date Recorded Not on file documented as of this encounter Plan of Treatment Not on filedocumented as of this encounter Visit Diagnoses Diagnosis Encounter for long-term (current) use of other medications - Primary documented in this encounter Care Teams Sound Effects Technician Relationship Specialty Start Date End Date Gagandeep Hinojosa MD PCP - General 05/17/12 [address] [place] [address] Vane Zarate Psychiatrist Psychiatry 03/22/12 documented as of this encounter
--- OUTSIDE RECORDS SUMMARY | 2022-02-12 12:13 | XMS_ITS | Encounter Summary ---
:1970 Author Organization [facility] Address [address], [place] [address] Care Team Providers Name Role Phone Lilian Persaud DO Primary Care Provider Reason for Referral Specialty Diagnoses / Procedures Referred By Contact Refer red To Contact Gagandeep Hinojosa MD [address] [place] [address] Referral ID Status Reason Start Date Expiration Date Visits Requ ested Visits Authorized RMATION CODER Reason for Visit Reason Comments CONSULT MASS Encounter Details Date Type Department Care Team Description 04/10/2012 Initial Consult [place] [address] Jim Farrell, Soft tis leydi mass; General Surgery Lipoma of other skin and subcutaneous ti ssue [address] [place] [address] [facility] [place] [address] [place] [phone] [id number] Social History Tobacco Use Types Packs/Day Years Used Date Smoking Tobacco: Never Assessed Sex Assigned at Date Recorded Not on file documented as of this encounter Last Filed Vital Signs Vital Sign Reading Time Taken Comments Blood Pressure - - Pulse - - Temperature - - Respiratory Rate - - Oxygen Saturation - - Inhaled Oxygen Concentration - - Weight 104.3 kg (230 lb) 04/10/2012 10:56 AM INFORMATION CODER Height 177.8 cm (5' 10) 04/10/2012 10:56 AM INFORMATION CODER Body Mass Index 33 04/10/2012 10:56 AM INFORMATION CODER documented in this encounter Progress Notes Jim Farrell MD - 04/23/2012 10:45 AM CST C C: Mass of back HPI: 42 yo male who comes in with 2 masses of his upper back close in proximity to each other. In the past he was dx with infected cyst of the same area and treated with abx. This time the masses are present but not tender. They may be bigger than previous issues. No drainage, no recent trauma. No fevers or chills. No N/V. Saw PCP. Exam consistent with lipoma but because of the history, he underwent U/S for eval. He comes in to discuss the U/S and options. Past Medical History Diagnosis Date ??? Tobacco Abuse #*LW 1 09/29/2002 ??? Bipolar I Dis NOS #*LW 2 09/15/2005 ??? Dyslipidemia #*LW 3 12/22/2009 ??? DM #*LW 4 12/22/2009 ??? CAD NOS #*LW 5 12/22/2009 ??? Liver Function Tests Abnormal #*LW 6 12/22/2009 ??? Pain Chest Wall #*LW 7 12/22/2009 ??? Tinea Corporis #*LW 8 09/04/2010 ??? Hypertriglyceridemia 12/11/2010 ??? DM hyperosmolarity type II, uncontrolled 12/11/2010 ??? DM w/o complication type II, uncontrolled 12/11/2010 ??? Erectile dysfunction 01/22/2011 ??? DM (diabetes mellitus) type II uncontrolled with renal manifestation 01/22/2011 ??? DM (diabetes mellitus) type II uncontrolled with renal manifestation 01/22/2011 ??? DM (diabetes mellitus) type II uncontrolled with renal manifestation 01/22/2011 ??? ASHD (arteriosclerotic heart disease) 05/04/2011 ??? S/P angioplasty with stent 05/26/2011 ??? Plantar wart 05/26/2011 ? ? Hyperlipidemia LDL goal < 70 06/08/2011 ??? Microalbuminuria 02/04/2012 Past Surgical History Procedure Date ??? Coronary angioplasty with stent placement Current outpatient prescriptions Medication Sig Dispense Refill ??? aspirin 81 [...] tablet by mouth nightly. 90 tablet 3 Allergies Allergen Reactions ??? Haloperidol Shock ??? Thiothixene Other (See Comments) Muscle spasm No family history on file. History Substance Use Topics ??? Smoking status: Former Smoker -- 0.0 packs/day for 25 years Types: Cigarettes ??? Smokeless tobacco: Former User Quit date: 04/29/2011 Comment: Smoking History Packs/day: ??? Alcohol Use: No Alcoholic Drinks/day: Amount:0; Freq:Never; Review of Systems - General ROS: negative for - fever, malaise, weight gain or weight loss ENT ROS: negative for - headaches Respiratory ROS: negative for - cough, hemoptysis, orthopnea or shortness of breath Cardiovascular ROS: negative for - chest pain, dyspnea on exertion, edema, irregular heartbeat or rapid heart rate Gastrointestinal: No change in bowel habits, no diarrhea or constipation : no change in urinary habits, no dysuria, polyurnia, Musculoskeletal ROS: negative for - gait disturbance, joint pain, muscle pain or muscular weakness Neurological ROS: negative for - behavioral changes, confusion, impaired coordination/balance, numbness/tingling or seizures Rest of Complete ROS was negative aside from HPI. PHYSICAL EXAMINATION: Ht 5' 10 (177.8 cm) Wt 230 lb (297643 g) BMI 33.00 kg/m2 GENERAL APPEARANCE: Timur Krishnamurthy is a normal appearing 42 y.o. male who is appropriate. Patient is neat and clean, and looks their stated age. Patient is awake and alert, comfortable and in no acute distress while supine. EYES: PERRL, Sclera anicteric, EOMI, pink healthy conjunctiva HEAD, EARS, NOSE, MOUTH, AND THROAT: Moist mucous membranes CARDIOVASCULAR: Sinus, without R/M/G ABDOMEN: Soft, NT BACK, 2 soft masses, non-tender, no skin changes. 2 cm amd 1 cm each upper back just to right of spine. NEUROLOGIC: Non-focal PSYCHIATRIC: mood and affect congruent Imaging performed at [facility]: ULTRASOUND OF THE TWO PALPABLE LUMPS ON THE PATIENT'S BACK - 04/06/2012 INDICATION: Masses on back FINDINGS: Sonographic evaluation was performed over the two lumps. One lump is in the midline while the second is just to the right of midline. These may be contiguous. The entire area was scanned. There is no discrete solid or cystic mass. There is no skin thickening or other findings to explain the clinical findings. Result Impression IMPRESSION: No sonographic abnormality identified. The findings were discussed with the patient at the time of the examination. A/P: 42 yo male with back masses, clinical exam and U/S consistent with lipomas. Discussed the benign nature of the lipomas. We discussed excision. We discussed the risks benefits and alternatives. Pt decided to hold off on procedure, knowing they were benign. If they become larger or cause Sx he willRTC. Jim Farrell MD 10:44 AM 04/23/2012 A/P: documented in this encounter Plan of Treatment Scheduled Referrals Name Type Priority Associated Diagnoses Order S chedule Surgery Consult-Adults Referral Routine Soft tissue mass O rdered: 04/10/2012 documented as of this encounter Visit Diagnoses Diagnosis Soft tissue mass Disorders of soft tissue, unspecified Lipoma of other skin and subcutaneous ti ssue documented in this encounter Care Teams Records Management Associate Relationship Specialty Start Date End Date Lilian Persaud DO PCP - General 12/23/10 05/16/12 [address] [place] [address] [facility] 03/22/12 documented as of this encounter
--- OUTSIDE RECORDS SUMMARY | 2022-02-12 12:13 | XMS_ITS | Encounter Summary ---
:1970 Author Organization [facility] Address [address], [place] [address] Care Team Providers Name Role Phone Gagandeep Hinojosa MD Primary Care Provider Encounter Details Date Type Department Care Team Description 10/25/2012 - Hospital Encounter [facility] Monica Valle, MBBS [address] [place], [place] [id number] ACS (acute coronary 10/27/2012 Med-Coronary Zoie Khanna, DO [address] [place], [place] [id number] syndrome) (Primary Outpatient 3[facility] Dx) [address] [place], [place] [address] Social History Tobacco Use Types Packs/Day Years Used Date Smoking Tobacco: Never Assessed Sex Assigned at Date Recorded Not on file documented as of this encounter Last Filed Vital Signs Vital Sign Reading Time Taken Comments Blood Pressure 122/80 10/27/2012 3:52 PM CDT Pulse 85 10/27/2012 3:52 PM CDT Temperature 36.6 ??C (97.9 ??F) 10/27/2012 3:52 PM CDT Respiratory Rate 18 10/27/2012 3:52 PM CDT Oxygen Saturation 97% 10/27/2012 3:52 PM CDT Inhaled Oxygen Concentration - - Weight 100.1 kg (220 lb 10.9 oz) 10/26/2012 11:00 PM CDT Height 177.8 cm (5' 10) 10/25/2012 6:00 PM CDT Body Mass Index 31.66 10/25/2012 6:00 PM CDT documented in this encounter Discharge Summaries Monica Valle MBBS - 10/27/2012 3:37 PM CDT Dictated Counselling was done to quit smoking. Monica Valle MBBS - 10/27/2012 3:36 PM CDT Discharge Summaries signed by REINA Wharton at 11/01/121924 Author: REINA Wharton Service: (none) Author Type: Physician Filed: 11/01/121924 Note Time: 10/27/121657 Status: Signed Yard Worker: REINA Wharton (Physician) NAME: SHARLENE KRISHNAMURTHY MR#: [id number] CSN: [id number] AUTHENTICATING CLINICIAN: REINA Cool CONFIRM #: [id number] LOC: 1 HOSPITAL DISCHARGE SUMMARY DATE OF ADMISSION: 10/25/2012 DATE OF DISCHARGE: 10/27/2012 DISCHARGE DIAGNOSES: 1. Chest pain. 2. History of tobacco abuse. 3. History of bipolar disorder. 4. History of dyslipidemia. 5. History of history of liver function abnormality. 6. History of tinea corporis. 7. History of diabetes mellitus. 8. History of noncompliance. 9. History of atherosclerotic heart disease. 10. History of status post angioplasty with stent 05/26/2011. PROCEDURES DURING HOSPITALIZATION: Angiogram, which was essentially negative for any significant coronary artery disease. It shows right coronary 50% narrowing in the distal right coronary artery, left main coronary normal, left anterior descending free of disease, circumflex is normal. Impression was no obstructive coronary artery disease. HISTORY OF PRESENT ILLNESS: 42-year-old white gentleman with a history of coronary disease, uncontrolled diabetes, came in with a complaint of left-sided chest pain. The patient was admitted for further evaluation and treatment. Cardiology was consulted and they ended up doing a coronary angiogram. The patient's coronary CT angiogram was performed and showed 40-70% mid LAD lesion. When the patient came, he was started on nitroglycerin drip and heparin drip. After the angiogram results came back negative, it was decided the patient can be discharged home. On the day of discharge, he is pain free. Denies any symptoms. He is afebrile. His vitals are stable. PHYSICAL EXAMINATION: HEENT: JVD is negative. Conjunctivae nonicteric. Extraocular movements are intact. LUNGS: Clear to auscultation. HEART: S1, S2 audible. ABDOMEN: Soft, nontender. EXTREMITIES: No edema. DISCHARGE INSTRUCTIONS: Include diet is cardiac and diabetic. Activity as tolerated. Medications include aspirin 81 mg 1 tabdaily, carvedilol 6.25 mg 1 tab by mouth twice daily, Depakote 2000 mg by mouth daily, insulin inject 80 units subcutaneously 2 times daily. Insulin 76 units subcutaneously 2 times daily. Lisinopril 5 mg 1 tab by mouth daily, omega-3 fatty acids take 2 capsules by mouth 2 times daily, risperidone 4 mgby mouth daily. Total time spent in the coordination of care is greater than 30 minutes. Time spent examination is approximately 5 or 10 minutes. The case was also discussed with the at the bedside. [place]:BREANNA C: CONFIRM #: [id number] documented in this encounter Medications at Time of Discharge Medication Sig Dispensed Refills Start End Date Date aspirin 81 MG chewable TAKE 1 TABLET BY MOUTH 100 tablet 1 0 tablet DAILY . 2 nicotine (aka NICODERM) Place 1 patch onto the 28 patch 0 03/14/20 14 MG/24HR skin every 24 hours. 3 13 Remove after 16-24 hours. carvedilol (AKA COREG) TAKE 1 TABLET BY [...] uncontrolled insulin regular (HUMULIN Inject 76 Units 30 mL 2 02/10/20 R) 100 UNIT/ML subcutaneously 2 times 3 13 injectionIndications: daily (before meals). Type II or unspecified breakfast and dinner type diabetes mellitus without mention of complication, uncontrolled lisinopril (AKA ZESTRIL) TAKE 1 TABLET BY MOUTH 90 tablet 0 11/15/19 5 MG tablet DAILY . 3 13 omega-3 fatty acids Take 2 capsules by mouth 360 capsule 3 0 07/10/19 (FISH OIL) 1000 MG 2 times daily. 2 17 capsuleIndications: Indications: Hypertriglyceridemia HYPERTRIGLYCERIDEMIA (HRC) risperiDONE (RISPERDAL) Take 4 mg by mouth daily 0 08/05/19 4 MG tablet (every 24 hours). 1 18 simvastatin (AKA ZOCOR) Take 1 tablet by mouth 90 tablet 3 11/15/19 80 MG tablet nightly. 2 13 documented as of this encounter Progress Notes Vanessa Yee, HORACIO, BOATING SAFETY OFFICER - 10/27/2012 4:53 PM CDT DISCHARGE O: Patient safely discharged to home. D: Patient is oriented x 4. Pt up independently . Discharge criteria met. Vaccines addressed prior to discharge. A: Discharge instructions and medication reconciliation reviewed and given to patient and significant other. Prescriptions sent with patient. Belongings checklist reviewed with patient and significant other and belongs sent. Equipment sent: none. Supplies sent none. Care plan issues addressed and educa tion record updated. R: Patient and significant other verbalizes understanding of discharge instructions. Patient discharged by: ambulation with family. Vanessa Yee RN 5:08 PM 10/27/[address] - 10/27/2012 3:17 PM CDT NUTRITION ASSESSMENT Reason for Referral: Diet Education for a Cardiac Diet (Low Fat, Low Cholesterol, No Added Salt) Admit Dx: CAD,Nitro gtt Diet: Cardiac (Low Fat, Low Cholesterol, No Added Salt) Anthropometrics: Height: 1.778 m (5' 10) Weight Hx: Wt Readings from Last 3 Encounters: 10/26/12 100.1 kg (220 lb 10.9 oz) 05/17/12 104.781 kg (231 lb) 04/10/12 104.327 kg (230 lb) Body Mass Index: Body mass index is 31.66 kg/(m^2). IBW: 166lb +/- 10% Labs Noted: Lab Results Component Value Date/Time Cholesterol 203* 02/01/2012 1200 HDL Cholesterol 28* 02/01/2012 1200 Triglycerides 266* 02/01/2012 1200 LDL Calculated 122 02/01/2012 1200 LDL Direct 115 06/04/2011 1302 Patient Interview/Diet History: [place]/peanut butter for breakfast, sandwich or burger for lunch, chicken for dinner. Familiar with carb counting. Does not eat much butter or use the salt shaker. DIAGNOSIS- NUTRITION (NB-1.1) Food and nutrition related knowledge deficit related to limited/lack of prior exposure to specific diet recommendations as evidenced by change in existing diagnosis or condition and/or patientverbalizing interest in information. INTERVENTION Nutrition Plan: The following healthy dietary patterns/lifestyle changes were discussed to promote health: Components of a low cholesterol, low saturated/trans fat, no added salt meal plan-Components included: plant-based foods, including fruits, vegetables, legumes, whole grains and nuts; lean meats/poultry, fish, low fat dairy. foods allowed/and foods to reduce in meal plan sodium guidelines heart healthy guidelines and rationale for adopting healthy lifestyle changes label reading portion sizes meals away from home recipe modification tips printed material regarding diet provided and RD contact information given Survival guidelines for diabetics (provided for 's information) MONITORING AND EVALUATION Monitor: Follow up if treatment team consults. Nutrition Risk Level: Low Goal: Patient will verbalize understanding of diet prescribed by MD. Progression to Goal: ?? Pt verbalized understanding of diet prescription. PROVIDER NAME Abbie Soriano RD, LD Estevan Taylor MD - 10/27/2012 12:17 PM CDT Cardiology No obstructive disease of significance. He may be discharged. Same cardiac meds. Given his psychiatric problems, anxiety, etc, maybe should resume resperidone, too. Stop smoking. --[facility] Fabian Gutierrez MD - 10/27/2012 10:26 AM CDT Cardiac Catheterization Laboratory: Preliminary Report Sharlene Krishnamurthy Referring MD: Dr. Joce Taylor Primary MD: Gagandeep Hinojosa Indication: Abnormal CT coronary angiogram, prior distal RCA stent Diagnostic Procedures: Coronary angiography, Left heart catheterization Intervention: None Access: Right radial artery Results: Dominance: Right Right Coronary: 50% narrowing in the distal right coronary Left Main Coronary: Normal Left Anterior Descending: The LAD proper is free of disease. There is a small second diagonal branch with a smooth less than 60% narrowing at its ostium. Circumflex: Normal Conclusions: 1. No obstructive coronary artery disease. Complications: None in lab. Recommendations: 1. Evaluate other (noncardiac) etiologies of chest pain. 2. Secondary prevention of coronary artery disease. Please call with any questions or concerns. Please see final report. Thank You. Fabian Gutierrez MD, Cardiology Rosetta Jara RN - 10/27/2012 5:49 AM CDT O: status. D/A: Pain free all night. VSS. tele remains NSR w/HR 60's. heparin gtt remains. slept all night. no complaints. R:sleeping, will cont to monitor. Monica Valle MBBS - 10/26/2012 2:33 PM CDT DAILY PROGRESS NOTE Admit Date: 10/25/2012 SUBJECTIVE: Appears comfortable. Family at the bed side. No cp no sob no nvd. OBJECTIVE: Vitals: Vital Signs Temp: 36.5 ??C (97.7 ??F), Pulse: 0 , Resp: 16 , SpO2: 96 %, BP: 128/81 mmHg, Oxygen Therapy Device: room air Body mass index is 31.16 kg/(m^2). I/O last 3 completed shifts: In: 854.3 [P.O.:680; I.V.:174.3] Out: 1700 [Urine:1700] General appearance: alert, fatigued, cooperative, no distress, appears stated age Head: Normocephalic, without obvious abnormality, atraumatic Eyes: conjunctivae/corneas clear. PERRL, EOM's intact. Throat: oropharynx pink & moist without lesions or evidence of thrush Neck: supple, symmetrical, trachea midline, no adenopathy, thyroid: not enlarged, symmetric, no tenderness/mass/nodules Back: no tenderness to percussion or palpation Lungs: clear to auscultation bilaterally Heart: regular rate and rhythm, S1, S2 normal, no murmur Abdomen: soft, non-tender; bowel sounds normal; no masses, no organomegaly Extremities: extremities normal, atraumatic, edema none Pulses: 2+ and symmetric Skin: Tinea rash chest Neurologic: Alert and oriented X 3, bulk strength and tone normal. Normal coordination Psychiatric: mood and affect appropriate Labs: All labs last 24 hrs: Recent Results (from the past 24 hour(s)) LAB BEDSIDE GLUCOSE MONITOR Collection Time 10/25/12 6:09 PM Result Value Range Bedside Blood Glucose Test 182 MICRO MRSA SCREEN CULTURE Collection Time 10/25/12 6:13 PM Result Value Range Source Nares Site Culture Mrsa Screen Culture in process LAB CARDIAC PROFILE Collection Time 10/25/12 8:06 PM Result Value Range Tropi Baseline <0.05 0.00 - 0.04 ng/mL LAB PROTIME W/INR Collection Time 10/25/12 8:07 PM Result Value Range Prothrombin Time 13.8 11.8 - 14.0 sec INR 1.0 LAB COMPLETE BLOOD COUNT W/DIFF Collection Time 10/25/12 8:07 PM Result Value Range White Blood Cell Count 9.0 3.8 - 11.0 k/cmm Red Blood Cell Count 4.81 4.20 - 5.90 m/cmm Hemoglobin 14.7 13.4 - 17.5 g/dL Hematocrit 38.9 (*) 39.0 - 51.0 % Mean Corpuscular Volume 80.9 80.0 - 100.0 fL RDW 12.0 11.0 - 15.0 % Platelet Count 189 140 - 450 k/cmm N/O LAB DIFFERENTIAL Collection Time 10/25/12 8:07 PM Result Value Range Absolute Neutrophils 3.8 1.8 - 8.0 k/cmm Absolute Lymphocytes 4.6 (*) 1.1 - 4.0 k/cmm Absolute Monocytes 0.5 0.2 - 0.8 k/cmm Absolute Eosinophils 0.1 0.0 - 0.5 k/cmm Absolute Basophils 0.0 0.0 - 0.2 k/cmm Immature Granulocytes 0.3 0.0 - 0.5 % LAB BEDSIDE GLUCOSE MONITOR Collection Time 10/25/12 9:38 PM Result Value Range Bedside Blood Glucose Test 190 N/O LAB CARD PROF TROPI 90 MIN Collection Time 10/25/12 9:53 PM Result Value Range Tropi At 90 Min <0.05 0.00 - 0.04 ng/mL LAB CREATININE Collection Time 10/25/12 9:53 PM Result Value Range Creatinine Serum 0.7 0.4 - 1.3 mg/dL Est GFR Am >60 >60 mL/min/1.73m2 Est GFR Non-Afr Am >60 >60 mL/min/1.73m2 LAB PARTIAL THROMBOPLASTIN TIME Collection Time 10/25/12 10:11 PM Result Value Range Partial Thromboplastin Time 64.3 (*) 25.0 - 38.0 sec N/O LABS CARD PROF TROPI 6 HRS Collection Time 10/26/12 2:07 AM Result Value Range Tropi At 6 Hrs <0.05 0.00 - 0.04 ng/mL LAB POTASSIUM Collection Time 10/26/12 7:03 AM Result Value Range Potassium 4.5 3.5 - 5.2 mEq/L LAB PARTIAL THROMBOPLASTIN TIME Collection Time 10/26/12 7:03 AM Result Value Range Partial Thromboplastin Time 76.4 (*) 25.0 - 38.0 sec LAB BEDSIDE GLUCOSE MONITOR Collection Time 10/26/12 8:13 AM Result Value Range Bedside Blood Glucose Test 251 LAB BEDSIDE GLUCOSE MONITOR Collection Time 10/26/12 11:52 AM Result Value Range Bedside Blood Glucose Test 149 ASSESSMENT/PLAN: 1.Recurrent Chest pain. 2. Atherosclerotic heart disease. 3. Bipolar disorder, disabled because of this. 4. Still smoking. 5. Diabetes on insulin. Poor control. because of number 9 6. Hypertension. 7. Hyperlipidemia. 8. Obesity. 9. Sometimes he cannot afford insulin. Coverage is okay for now, he says. SUGGESTION: 1. Coronary angiogram in am Modification of risk factors such as quit smoking. Spoke with the family at the bed side all questions answered. Dorie Barreto RN - 10/26/2012 1:44 PM CDT o Patient is pain free. D patient remained pain free. Ambulated in the [address]. heparin continued. For angio tomorrow .TeleNSR. A patient is up and ambulating without difficulty. remained pain free. tolerated diet R stable and free Екатерина Kolb RN - 10/26/2012 4:28 AM CDT O: Status update. D: Chest pain decreased during shift. Trops negative x3. Normal sinus rhythm. Rash on chest. A: Nitro paused. Heparin infusing per protocol. Nystatin applied to chest. R: Patient resting comfortably. Angio planned for this morning. Continue to monitor. Екатерина Kolb RN 4:28 AM 10/26/2012 Dorie Barreto RN - 10/25/2012 6:25 PM CDT ADMIT O: Admitted patient via cart from [facility] to bed # 3[facility]/3[facility]-05. D: Patient is oriented x 4; family not present. See Admission Assessments. patient alert and calm. verbalizes pain 5/10 with deep breathing and touch nitro at 5mcg infusing and heparin at 1520units A: Discussed plan of care. See education record for admission education. Oriented to room. Call light in reach. Bed alarm: {on R: Patient status:stable. Will monitor. documented in this encounter Consult Notes Estevan Taylor MD - 10/26/2012 11:15 AM CDT Cardiology Please see dictated note. Impression: 1. Chest pain. 16 hrs total. No objective findings. I doubt this is ischemic pain. Hospitalized in early September with pain, no cardiac findings, no imaging then. 2. [facility]SHD [place] inferior [place] 3.5 x 16 bare metal stent RCA Apr 2011 Bounce-back angio Apr 2011--stent patent, mid-PDA disease, modest LAD disease, LVEF 60 Normal nuc scan OCT 2011. [facility] CT cor angio showed 40-70% mid LAD plaque--I gather that is why he was transferred. 3. Bipolar disorder. Disabled because of this. Has been off risperidone for several months, family says. 4. Still smoking 5. Diabetes on insulin. Poor control. 6. Hypertension 7. Hyperlipidemia 8. Obesity 9. Finances are an issue. Sometimes can't afford meds. OK now, he says. Suggest: 1. Cor angio. I'm guessing this will not show anything of significance. 2. Stop smoking. 3. He could go to --[facility] Estevan Taylor MD - 10/26/2012 11:13 AM CDT Consults signed by Estevan Taylor MD at 10/26/12 9149 Author: Estevan Taylor MD Service: (none) Author Type: Physician Filed: 10/26/12 1148 Note Time: 10/26/12 1256 Status: Signed Yard Worker: Estevan Taylor MD (Physician) NAME: SHARLENE KRISHNAMURTHY MR#: [id number] CSN: [id number] AUTHENTICATING CLINICIAN: Estevan Taylor MD CONFIRM #: [id number] LOC: 1 HOSPITAL CONSULTATION DATE OF CONSULTATION: 10/26/2012 DATE OF : 1970 REASON FOR CONSULTATION: Dr. Khanna has requested cardiology consultation for this 42-year-old man because of chest pain. HISTORY OF PRESENT ILLNESS: Mr. Krishnamurthy presented in April of 2011 with unstable angina, negative serum markers. However, hiselectrocardiogram showed inferior Q-waves. Angiography showed subtotal occlusion of the right coronary that was treated with a 3.5 x 16 mm bare-metal stent. His inferobasilar segment was akinetic. He had a bounce back readmission later in April and a repeat angiogram which showed that the stent was patent, the left ventricular function had improved, and there was modest disease in the mid PDA and mid LAD. The patient has continued to have numerous emergency room visits and doctor visits with pain. In October of 2011, he had a normal stress nuclear scan. He was hospitalized in [place] in early September with chest pain and diabetes out of control. He had stopped taking his insulin because he could not afford it. He had no cardiac findings and was discharged without further cardiac evaluation, although plans were made for an outpatient stress echo. Yesterday, he again presented to the [place] [facility] with chest pain. The patient said he felt well in the morning and had lunch, and was sitting down looking at his Smart Phone when he again had a tight, burning sensation in his chest. This was interspersed with sharp jabbing pains lasting 1 or 2 minutes. He put up with this for about an hour and then went to the emergency room in [place]. He was still having pain when he got there. He was given morphine. He had an unremarkable cardiogram and negative serum markers. The chest pain persisted. A CT coronary angiogram suggested a 40-70% mid-LAD stenosis and, I gather, that is the reason he was transferred here for further evaluation. He says he continued to have pain up until he fell asleep last night but feels fine this morning. He is not working. He is disabled because of bipolar disorder. He lives in a town house with his . No outside work. He is not walking, although he had been walking on the treadmill earlier in the winter. He plays with his 8-year-old grandchild. He has no exertional symptoms. Other problems include insulin-requiring diabetes, hypertension, hyperlipidemia, obesity. He is still smoking. REVIEW OF SYSTEMS: Recorded in the admitting history and physical. No febrile illnesses. His weight has been about the same. OUTPATIENT MEDICINES: Aspirin 81 daily, carvedilol 6.25 twice daily, divalproex 2000 mg daily, insulin, lisinopril 5 daily, omega-3 fatty acids, simvastatin daily. He has not been taking his risperidone for several months, his family says. EXAM: He is a cheerful, cooperative man who is sitting up in a chair. He is obese at 5 feet 10, and 217 pounds. BMI 31.2. Blood pressure 109/60, heart rate 71, in sinus rhythm. Afebrile. 100% saturated on room air. HEENT: Pupils normal. Mucous membranes normal. NECK: Thyroid not palpable. No bruits. CHEST: Clear. HEART: S1, S2 normally split. Pulses normal. No edema. ABDOMEN: Obese. Liver and spleen not palpable. EXTREMITIES: Normal. SKIN: Normal. NEUROLOGIC: Cranial nerves, gait normal. LABORATORY DATA: His electrocardiogram today is essentially normal. The inferior Q-waves have involuted. Hemoglobin is 14.7, white count 9000, platelets 189,000. Sodium 141, potassium 4.5. He has had 4 normal troponins. Glucose 251. IMPRESSION: 1. Chest pain, lengthy, with no objective findings. I doubt this is ischemic pain. This is now the second admission in a month. 2. Atherosclerotic heart disease. a. 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 b. Status post 3.5 x 16 mm bare-metal stent in the right coronary April 2011. c. Bounce back angiogram showing no obstructive disease but modest left anterior descending and posterior descending artery disease in April 2011. d. Normal nuclear scan October 2011. e. Moderate mid left anterior descending plaque by CT angiogram yesterday at [place]. 3. Bipolar disorder, disabled because of this. 4. Still smoking. 5. Diabetes on insulin. Poor control. 6. Hypertension. 7. Hyperlipidemia. 8. Obesity. 9. Finances are problem. Sometimes he cannot afford medicines. Coverage is okay for now, he says. SUGGESTION: 1. Coronary angiogram. I am guessing this will not show anything of significance. 2. Stop smoking. 3. He could be transferred to [facility]. CC: GAGANDEEP HINOJOSA MD [id number] [facility] [place] [id number] [facility]:BREANNA C: CONFIRM #: [id number] documented in this encounter OR Notes H&P - Zoie Khanna, - 10/26/2012 1:54 AM CDT HISTORY AND PHYSICAL Date of service 10/25/2012 Primary provider: Gagandeep Hinojosa HISTORY OF PRESENT ILLNESS: Chief complaint chest pain Medical records reviewed Pt is a 42 year old male with h/o CAD s/p BMS to the RCA 04/2011, uncontrolled diabetes mellitus and bipolar d/o He presented to [facility] today complaining of sudden onset of left sided chest pain/pressure whileat rest. Started around 1pm today. Rated 9/10 initially and now down to a 4-5/10. Radiates to the left arm. Associated with nausea, diaphoresis and shortness of breath. Initial labs showed a normal ECG and neg trop level. D-dimer was within the normal range. He was given ASA, BB. Coronary CT angiogram was performed and showed a 40-71% mid LAD lesion. He was started tom NTG and heparin gtts. Symptoms did improve after interventions. Transferred here for additional mgmt. Past Medical History Diagnosis Date ??? Tobacco [...] BMS RCA 09/16/2011 ??? LFTs abnormal 02/02/2012 Past Surgical History Procedure Laterality Date ??? Coronary angioplasty with stent placement Allergies Allergen Reactions ??? Haloperidol Shock ??? Thiothixene Other (See Comments) Muscle spasm History Substance Use Topics ??? Smoking status: Current Everyday Smoker -- 0.00 packs/day for 25 years Types: Cigarettes ??? Smokeless tobacco: Former User Quit date: 04/29/2011 Comment: Smoking History Packs/day: ??? Alcohol Use: No Alcoholic Drinks/day: Amount:0; Freq:Never; Family history + diabetes Prior to admission medications reviewed in [facility] - see EMR for details. Review of Systems A comprehensive review of systems was negative except for: as noted in the HPI OBJECTIVE: Vitals: Vital Signs Temp: 37 ??C (98.6 ??F), Pulse: 72 , Resp: 20 , SpO2: 96 %, BP: 130/80 mmHg, MAP (mmHg):91 , Oxygen Therapy Device: room air Height: 177.8 cm (5' 10), Weight: 98.5 kg (217 lb 2.5 oz) Body mass index is 31.16 kg/(m^2). I/O this shift: In: - Out: 550 [Urine:550] General appearance: alert, fatigued, cooperative, no distress, appears stated age Head: Normocephalic, without obvious abnormality, atraumatic Eyes: conjunctivae/corneas clear. PERRL, EOM's intact. Throat: oropharynx pink & moist without lesions or evidence of thrush Neck: supple, symmetrical, trachea midline, no adenopathy, thyroid: not enlarged, symmetric, no tenderness/mass/nodules Back: no tenderness to percussion or palpation Lungs: clear to auscultation bilaterally Heart: regular rate and rhythm, S1, S2 normal, no murmur Abdomen: soft, non-tender; bowel sounds normal; no masses, no organomegaly Extremities: extremities normal, atraumatic, edema none Pulses: 2+ and symmetric Skin: Tinea rash chest Neurologic: Alert and oriented X 3, bulk strength and tone normal. Normal coordination Psychiatric: mood and affect appropriate ECG: normal sinus rhythm, no blocks or conduction defects, no ischemic changes, WNL. Imaging: Coronary CTA as noted in HPI Labs: All available admission labs reviewed and remarkable for Trop < 0.5 CBC unremarkable, Glucose 190 ASSESSMENT/PLAN: ACS (acute coronary syndrome) Assessment: Discussed with Dr. Pratt - given hx is high risk. Plan: - Admit to 3S - Cont NTG infusion and heparin infusion per protocol - Cont ASA and BB - Follow trop level - NPO after MN for angiogram in am DM w/o complication type II, uncontrolled Assessment: on NPH and regular insulin BID Plan: Will cont NPH and regular insulin at home doses - hold am regular dose if pt is NPO. SSI and glucometer checks. Check A1C Bipolar I Dis Assessment: noted Plan: cont Depakote Tinea Corporis Plan: nystatin ointment Tobacco Abuse - nicotine patch DVT ppx - ambulatory Code Status - full Zoie Khanna DO [facility] Hospitalist documented in this encounter Miscellaneous Notes Medication History - Elvis Ellington MD - 10/27/2012 4:53 PM CDT INPATIENT MEDS Encounter Date: 10/25/12 nicotine (NICODERM CQ) 14 mg/24 hr Start Date:10/27/12, End Date:03/14/13, Frequency:EVERY 24 HOURS *No Administrations Recorded acetaminophen (TYLENOL) tablet 325-650 mg Start Date:10/27/12, End Date:10/27/12, Frequency:EVERY 4 HOURS PRN *No Administrations Recorded acetaminophen-codeine (TYLENOL #3) 300-30 mg per tablet 1-2 tablet Start Date:10/27/12, End Date:10/27/12, Frequency:EVERY 4 HOURS PRN *No Administrations Recorded morphine injection 2-4 mg Start Date:10/27/12, End Date:10/27/12, Frequency:EVERY 5 MIN PRN *No Administrations Recorded nitroGLYCERIN (NITROSTAT) SL tablet 0.4 mg Start Date:10/27/12, End Date:10/27/12, Frequency:PRN *No Administrations Recorded ondansetron (ZOFRAN) injection 4 mg Start Date:10/27/12, End Date:10/27/12, Frequency:EVERY 6 HOURS PRN *No Administrations Recorded fentaNYL (SUBLIMAZE) injection 25-50 mcg Start Date:10/27/12, End Date:10/27/12, Frequency:EVERY 5 MIN PRN *No Administrations Recorded 0.9% sodium chloride latex free syringe Start Date:10/27/12, End Date:10/27/12, Frequency:- *No Administrations Recorded 0.9% sodium chloride solution Start Date:10/27/12, End Date:10/27/12, Frequency:- *No Administrations Recorded 0.9% sodium chloride solution Start Date:10/27/12, End Date:10/27/12, Frequency:- Taken Dose Action User Route Site Recorded Comment Reason 10/27/12 0800 - Not Given Vanessa Yee RN - - 10/27/12 0751 charted under timed dose Other 0.9% sodium chloride infusion Start Date:10/27/12, End Date:10/27/12, Frequency:ONCE Taken Dose Action User Route Site Recorded Comment Reason 10/27/12 0700 100 mL/hr Started Vanessa Yee RN Intravenous - 10/27/12 0759 - - diazepam (VALIUM) tablet 5 mg Start Date:10/26/12, End Date:10/27/12, Frequency:ONCE PRN *No Administrations Recorded aspirin tablet 325 mg Start Date:10/26/12, End Date:10/27/12, Frequency:DAILY Taken Dose Action User Route Site Recorded Comment Reason 10/27/12 0702 325 mg Given Rosetta Copeland RN Oral - 10/27/12 0704 - - 10/26/12 0810 325 mg Given Dorie Barreto RN Oral - 10/26/12 0811 - - heparin (porcine) 100 units/ml in 5% dextrose 250 ml infusion Start Date:10/25/12, End Date:10/27/12, Frequency:TITRATED Taken Dose Action User Route Site Recorded Comment Reason 10/26/12 1417 1,620 Units/hr New Bag Started JOSETTE Badillo RN Intravenous - 10/26/12 1739 - - 10/25/12 2320 1,620 Units/hr Rate/Dose Change JOSETTE Ham RN Intravenous - 10/25/12 2330 pt had heparin infusing since admission; started at [place] running at 15.2 - heparin (porcine) 1,000 unit/mL injection 1,000 Units Start Date:10/25/12, End Date:10/27/12, Frequency:PRN *No Administrations Recorded heparin (porcine) 1,000 unit/mL injection 3,000 Units Start Date:10/25/12, End Date:10/27/12, Frequency:PRN *No Administrations Recorded nitroGLYCERIN 0.2mg/ml in 5% dextrose 250 ml infusion Start Date:10/25/12, End Date:10/27/12, Frequency:TITRATED Taken Dose Action User Route Site Recorded Comment Reason 10/26/12 0207 0 mcg/min Stopped Екатерина Kolb RN Intravenous - 10/26/12 0208 b/p 113/75; no chestpain Other 10/25/12 2332 5 mcg/min Verify Екатерина Kolb RN Intravenous - 10/25/12 2332 pt transfer from [facility] with nitro infusing. Verified rate/dose/concentration. - 10/25/12 2145 5 mcg/min Restarted Екатерина Kolb RN Intravenous - 10/25/12 2333 - - nicotine (NICODERM CQ) 21 mg/24 hr patch Start Date:10/26/12, End Date:10/27/12, Frequency:DAILY Taken Dose Action User Route Site Recorded Comment Reason 10/27/12 0702 1 patch Given Rosetta Copeland RN Transdermal - 10/27/12 0704 - - 10/26/12 0809 1 patch Applied Dorie Barreto RN Transdermal - 10/26/12 0811 - - nicotine patch removal Start Date:10/26/12, End Date:10/27/12, Frequency:AT BEDTIME Taken Dose Action User Route Site Recorded Comment Reason 10/26/12 2200 - Removed Rosetta Copeland RN Other - 10/26/122157 - - morphine injection 0.5-2 mg Start Date:10/25/12, End Date:10/27/12, Frequency:EVERY 1 HOUR PRN *No Administrations Recorded 0.9% sodium chloride latex free syringe 10 mL Start Date:10/25/12, End Date:10/27/12, Frequency:2 TIMES DAILY Taken Dose Action User Route Site Recorded Comment Reason 10/27/12 0800 10 mL Not Given Vanessa Yee RN Intravenous - 10/27/12 0758 - Other 10/26/121999 10 mL Not Given Rosetta Copeland RN Intravenous - 10/26/122106 heparin infusing Other 10/26/12 08 10 mL Given Dorie Barreto RN Intravenous - 10/26/12 0811 - - 10/25/121999 10 mL Not Given Екатерина Kolb RN Intravenous - 10/25/122138 - Other 0.9% sodium chloride latex free syringe 10 mL Start Date:10/25/12, End Date:10/27/12, Frequency:PRN *No Administrations Recorded ondansetron (ZOFRAN) injection 4 mg Start Date:10/25/12, End Date:10/27/12, Frequency:EVERY 4 HOURS PRN *No Administrations Recorded nystatin (MYCOSTATIN) ointment Start Date:10/25/12, End Date:10/27/12, Frequency:2 TIMES DAILY Taken Dose Action User Route Site Recorded Comment Reason 10/27/12 0800 - Not Given Vanessa Yee RN Topical - 10/27/12 1148 - Patient/family refused 10/26/122023 - Given Rosetta Copeland RN Topical - 10/26/122023 - - 10/26/12 1000 - Applied Dorie Barreto RN Topical - 10/26/12 1201 - - 10/25/122151 - Given Екатерина Kolb RN Topical - 10/25/122151 not up from pharmacy - insulin lispro (HumaLOG) 100 unit/mL injection Start Date:10/25/12, End Date:10/27/12, Frequency:4 TIMES DAILY SLIDING SCALE Taken Dose Action User Route Site Recorded Comment Reason 10/27/12 1130 2 Units Given Vanessa Yee RN Subcutaneous - 10/27/12 1148 - - 10/27/12 0800 - Not Given Vanessa Yee RN Subcutaneous - 10/27/12 1053 - Other 10/26/122156 2 Units Given Rosetta Copeland RN Subcutaneous - 10/26/12 2158 - - 10/26/12 1706 2 Units Given Dorie Barreto RN Subcutaneous - 10/26/12 1706 - - 10/26/12 1130 - Not Given Dorie Barreto RN Subcutaneous - 10/26/12 1200 - Order parameters not met 10/26/12 0818 4 Units Given Dorie Barreto RN Subcutaneous - 10/26/12 0818 - - 10/25/122150 2 Units Given Екатерина Kolb RN Subcutaneous - 10/25/122151 - - carvedilol (COREG) tablet 6.25 mg Start Date:10/26/12, End Date:10/27/12, Frequency:2 TIMES DAILY WITH MEALS Taken Dose Action User Route Site Recorded Comment Reason 10/27/12 0702 6.25 mg Given Rosetta Copeland RN Oral - 10/27/12 0704 - - 10/26/12 1802 6.25 mg Given Dorie Barreto RN Oral - 10/26/12 1802 - - 10/26/12 0811 6.25 mg Given Dorie Barreto RN Oral - 10/26/12 0811 - - divalproex (DEPAKOTE) DR tablet 2,000 mg Start Date:10/26/12, End Date:10/27/12, Frequency:DAILY Taken Dose Action User Route Site Recorded Comment Reason 10/27/12 0702 2,000 mg Given Rosetta Copeland RN Oral - 10/27/12 0704 - - 10/26/12 0811 2,000 mg Given Dorie Barreto RN Oral - 10/26/12 0811 - - insulin NPH (HumuLIN N) 100 unit/mL injection 80 Units Start Date:10/26/12, End Date:10/27/12, Frequency:2 TIMES DAILY BEFORE MEALS Taken Dose Action User Route Site Recorded Comment Reason 10/27/12 0730 80 Units Given Vanessa Yee RN Subcutaneous - 10/27/12 1148 - - 10/26/12 1707 80 Units Given Dorie Barreto RN Subcutaneous - 10/26/12 1708 - - 10/26/12 0843 - Given Dorie Barreto RN Subcutaneous - 10/26/12 0845 - - insulin regular (HumuLIN R) 100 unit/mL injection 76 Units Start Date:10/26/12, End Date:10/27/12, Frequency:2 TIMES DAILY BEFORE MEALS Taken Dose Action User Route Site Recorded Comment Reason 10/27/12 0730 76 Units Given Vanessa Yee RN Subcutaneous - 10/27/12 1148 - - 10/26/12 1708 76 Units Given Dorie Barreto RN Subcutaneous - 10/26/12 1708 - - 10/26/12 0915 76 Units Given Dorie Barreto RN Subcutaneous - 10/26/12 0916 - - lisinopril (PRINIVIL, ZESTRIL) tablet 5 mg Start Date:10/26/12, End Date:10/27/12, Frequency:DAILY Taken Dose Action User Route Site Recorded Comment Reason 10/27/12 0702 5 mg Given Rosetta Copeland RN Oral - 10/27/12 0704 - - 10/26/12 0811 5 mg Given Dorie Barreto RN Oral - 10/26/12 0811 - - risperiDONE (RisperDAL) tablet 4 mg Start Date:10/26/12, End Date:10/27/12, Frequency:DAILY Taken Dose Action User Route Site Recorded Comment Reason 10/27/12 0702 4 mg Given Rosetta Copeland RN Oral - 10/27/12 0704 - - 10/26/12 0811 4 mg Given Dorie Barreto RN Oral - 10/26/12 0811 - - simvastatin (ZOCOR) tablet 80 mg Start Date:10/26/12, End Date:10/27/12, Frequency:AT BEDTIME Taken Dose Action User Route Site Recorded Comment Reason 10/26/12 2156 80 mg Given Rosetta Copeland RN Oral - 10/26/122156 - - insulin NPH (NOVOLIN N) 100 unit/mL Susp Start Date:05/17/12, End Date:03/14/13, Frequency:2 TIMES DAILY BEFORE MEALS *No Administrations Recorded 0.9% sodium chloride solution Start Date:10/27/12, End Date:-, Frequency:- *No Administrations Recorded fentaNYL (SUBLIMAZE) 50 mcg/mL injection Start Date:10/27/12, End Date:-, Frequency:- *No Administrations Recorded midazolam (VERSED) 1 mg/mL injection Start Date:10/27/12, End Date:-, Frequency:- *No Administrations Recorded heparin (porcine) 2,000 unit/1,000 mL flush Start Date:10/27/12, End Date:-, Frequency:- *No Administrations Recorded lidocaine 1% (PF) 10 mg/mL (1 %) injection Start Date:10/27/12, End Date:-, Frequency:- *No Administrations Recorded nitroGLYCERIN 2mg in 5% dextrose 10 ml syringe Start Date:10/27/12, End Date:-, Frequency:- *No Administrations Recorded niCARdipine 1 mg in 0.9% sodium chloride 10 ml syringe Start Date:10/27/12, End Date:-, Frequency:- *No Administrations Recorded documented in this encounter Plan of Treatment Not on filedocumented as of this encounter Procedures Procedure Name Priority Date/Time Associated Comments Diagnosis BEDSIDE GLUCOSE Routine 10/27/2012 1:11 Results f or this MONITOR POCT PM CDT procedure are i n the results section. BEDSIDE GLUCOSE Routine 10/27/2012 11:26 Results for this MONITOR POCT AM CDT procedure are i n the results section. CARDIAC CATH Routine 10/27/2012 8:39 Results for this PROCEDURE AM CDT procedure are i n the results section. BEDSIDE GLUCOSE Routine 10/27/2012 7:52 Results f or this MONITOR POCT AM CDT procedure are i n the results section. POTASSIUM Specified Time 10/27/2012 6:12 Results fo r this AM CDT procedure are i n the results section. APTT (ACTIVATED Specified Time 10/27/2012 6:11 Results for this PARTIAL AM CDT procedure are i n THROMBOPLASTIN TIME the resu lts section. BEDSIDE GLUCOSE Routine 10/26/2012 9:30 Results f or this MONITOR POCT PM CDT procedure are i n the results section. BEDSIDE GLUCOSE Routine 10/26/2012 5:03 Results f or this MONITOR POCT PM CDT procedure are i n the results section. BEDSIDE GLUCOSE Routine 10/26/2012 11:52 Results for this MONITOR POCT AM CDT procedure are i n the results section. ECG 12 LEAD INPATIENT Routine 10/26/2012 10:17 Re sults for this AM CDT procedure are i n the results section. BEDSIDE GLUCOSE Routine 10/26/2012 8:13 Results f or this MONITOR POCT AM CDT procedure are i n the results section. APTT (ACTIVATED Specified Time 10/26/2012 7:03 Results for this PARTIAL AM CDT procedure are i n THROMBOPLASTIN TIME the resu lts section. HGB A1C Specified Time 10/26/2012 7:03 Results fo r this AM CDT procedure are i n the results section. POTASSIUM Specified Time 10/26/2012 7:03 Results fo r this AM CDT procedure are i n the results section. LABS CARD PROF TROPI STAT 10/26/2012 2:07 Resu lts for this 6 HRS AM CDT procedure are i n the results section. APTT (ACTIVATED STAT 10/25/2012 10:11 Results for this PARTIAL PM CDT procedure are i n THROMBOPLASTIN TIME the resu lts section. CARD PROF TROPI 90 STAT 10/25/2012 9:53 Result s for this MIN PM CDT procedure are i n the results section. CREATININE / GFR STAT 10/25/2012 9:53 Results for this PM CDT procedure are i n the results section. BEDSIDE GLUCOSE Routine 10/25/2012 9:38 Results f or this MONITOR POCT PM CDT procedure are i n the results section. COMPLETE BLOOD STAT 10/25/2012 8:07 Results fo r this COUNT-W/DIFF PM CDT procedure are i n the results section. DIFFERENTIAL STAT 10/25/2012 8:07 Results for this PM CDT procedure are i n the results section. INR/PROTIME STAT 10/25/2012 8:07 Results for this PM CDT procedure are i n the results section. CARDIAC PROFILE STAT 10/25/2012 8:06 Results f or this PM CDT procedure are i n the results section. ECG 12 LEAD INPATIENT STAT 10/25/2012 7:36 Res ults for this PM CDT procedure are i n the results section. MRSA CULTURE Routine 10/25/2012 6:13 Results for this PM CDT procedure are i n the results section. BEDSIDE GLUCOSE Routine 10/25/2012 6:09 Results f or this MONITOR POCT PM CDT procedure are i n the results section. documented in this encounter Results BEDSIDE GLUCOSE MONITOR (10/27/2012 1:11 PM CDT) P athologist Signature Bedside Blood 266 mg/dL HP CONVERSION Glucose Test Specimen Anatomical Collection Method Collection Time Receive d Time (Source) Location / / Volume Laterality 10/27/2012 1:11 PM 3 CDT 12:30 PM CDT Zoie Khanna DO LAB_1 Performing Organization Address City/[facility] Phon e Number HP CONVERSION BEDSIDE GLUCOSE MONITOR (10/27/2012 11:26 AM CDT) P athologist Signature Bedside Blood 182 mg/dL HP CONVERSION Glucose Test Specimen Anatomical Collection Method Collection Time Receive d Time (Source) Location / / Volume Laterality 10/27/2012 11:26 11/10/2012 AM CDT 12:30 PM CDT Zoie Khanna DO LAB_1 Performing Organization Address [facility] Phon e Number HP CONVERSION Cardiac Cath Procedure (10/27/2012 8:39 AM CDT) Specimen (Source) Anatomical Collection Method Collection Time Re ceived Time Location / / Volume Laterality 10/27/2012 8:39 AM CDT Narrative PN [facility] - 10/27/2012 8:39 AM CDT [address] [place] [address] SHARLENE T TELLY ?? [phone] Cardiovascular Catheterization Comprehen sive Report : 1970 Age: 42 years Gender: Male Study date: 10/27/2012 Test time: 10:03 - 10:25 Fluoro time: 8.5 min PPH Staff: ??Wendy Cali RN Diagnostic Chief Hospital Administrator: ??FABIAN GUTIERREZ MD Rpg Programmer: ??Brandon Ta Scrub: ??Inderjit Larson RN Monitor: ??Екатерина Khalil CVT X-ray Tech: ??Charles Washington RT Ordering Physician: ??Franck TAYLOR History and indications INDICATIONS ?? -- ??Angina/[place]: atypical chest pain. -- ??Coronary artery disease. Prior righ t coronary artery stent placement. Procedures PROCEDURES PERFORMED: -- ??Right coronary angiography. -- ??Left coronary angiography. NARRATIVE: The risks and alternatives of the procedures and conscious sedation were explained to the patient and informed consent was obtained. The patie nt was brought to the laboratory chief and placed on the table. Th e planned puncture sites were prepped and draped in the usu al sterile fashion. -- ??Right radial artery access. -- ??Right coronary artery angiography. The vessel was selectively cannulated and angiography w as performed. -- ??Left coronary artery angiography. T he vessel was selectively cannulated and angiography w as performed. Hemodynamics HEMODYNAMICS: Hemodynamic assessment demonstrates norm al arterial pressure. Coronary angiography CORONARY CIRCULATION: Left main coronary artery Left main: Normal. Left anterior descending artery and bran ches LAD: Angiography showed minor luminal ir regularities. Left circumflex artery and branches Circumflex: Normal. Right coronary artery and branches RCA: The previously deployed stent in e posterior descending branch of the right coronary artery is patent with mild to moderate in-stent restenosi s. This does not appear to be flow-limiting. PROCEDURE COMPLETION TIMING: Test started at 10:03. Test conc luded at 10:25. RADIATION EXPOSURE: Fluoroscopy time: 8. 5 min. CONTRAST GIVEN: 50 ml OPTIRAY 320. MEDICATIONS GIVEN: Fentanyl, 50 mcg, IV, at 09:55. Fentanyl, 25 mcg, IV, at 10:02. Nicardipine (Carde ne), 200 mcg, IA, at 10:05. Versed (1 mg), 1 mg, IV, at 09 :55. Versed (1 mg), 0.5 mg, IV, at 10:02. NTG (INTRA-ARTERIA L), 200 mcg, at 10:05. Heparin 1:1000 U/ml, 2,000 units, at 10:05. Study conclusions IMPRESSIONS: There is nonobstructive, si ngle vessel coronary artery disease. Previously deployed sten t in the posterior descending branch of the right coronary artery is patent. Prepared and signed by FABIAN GUTIERREZ MD Signed 11/02/2012 14:55:37 HEMODYNAMIC TABLES Pressures: ??Baseline Pressures: ??- HR: 80 Pressures: ??- Rhythm: Pressures: ??-- Aortic Pressure (S/D/M): 98/71/75 Outputs: ??Baseline Outputs: ??-- CALCULATIONS[age] Outputs: ??-- CALCULATIONS: Body Surface Area: 2.18 Outputs: ??-- CALCULATIONS: Height in cm : 178.00 Outputs: ??-- CALCULATIONS: Sex: Male Outputs: ??-- CALCULATIONS: Weight in kg : 100.10 Estevan Taylor MD PN CARDIAC CATH ORDERABLES Performing Organization Address [facility] Phon e Number PN [facility] BEDSIDE GLUCOSE MONITOR (10/27/2012 7:52 AM CDT) athologist Signature Bedside Blood 223 mg/dL HP CONVERSION Glucose Test Specimen Anatomical Collection Method Collection Time Receive d Time (Source) Location / / Volume Laterality 10/27/2012 7:52 AM 3 8:05 CDT AM CDT Monica CUNNINGHAMBS LAB_1 Performing Organization Address [facility] Phon e Number HP CONVERSION Potassium (10/27/2012 6:12 AM CDT) athologist Signature Potassium 4.2 3.5 - 5.2 HP CONVERSION mEq/L Specimen Anatomical Collection Method Collection Time Receive d Time (Source) Location / / Volume Laterality 10/27/2012 6:12 AM 3 6:21 CDT AM CDT Zoie Cheney Jey SAL LAB_1 Performing Organization Address [facility] Phon e Number HP CONVERSION (ABNORMAL) APTT (Activated Partial Thromboplastin Time) (10/27/2012 6:11 AM CDT) [facility] gist Method Time Signature Partial 58.5 (H) 25.0 - HP CONVERSION Thromboplastin 38.0 sec Time Specimen Anatomical Collection Method Collection Time Receive d Time (Source) Location / / Volume Laterality 10/27/2012 6:11 AM 3 6:21 CDT AM CDT Zoie Khanna DO LAB_1 Performing Organization Address [facility] Phon e Number HP CONVERSION BEDSIDE GLUCOSE MONITOR (10/26/2012 9:30 PM CDT) athologist Signature Bedside Blood 189 mg/dL HP CONVERSION Glucose Test Specimen Anatomical Collection Method Collection Time Receive d Time (Source) Location / / Volume Laterality 10/26/2012 9:30 PM 3 9:40 CDT PM CDT Monica CUNNINGHAM LAB_1 Performing Organization Address [facility] Phon e Number HP CONVERSION BEDSIDE GLUCOSE MONITOR (10/26/2012 5:03 PM CDT) P athologist Signature Bedside Blood 181 mg/dL HP CONVERSION Glucose Test Specimen Anatomical Collection Method Collection Time Receive d Time (Source) Location / / Volume Laterality 10/26/2012 5:03 PM 3 5:05 CDT PM CDT Monica Valle [facility] LAB_1 Performing Organization Address [facility] Phon e Number HP CONVERSION BEDSIDE GLUCOSE MONITOR (10/26/2012 11:52 AM CDT) P athologist Signature Bedside Blood 149 mg/dL HP CONVERSION Glucose Test Specimen Anatomical Collection Method Collection Time Receive d Time (Source) Location / / Volume Laterality 10/26/2012 11:52 10/26/2012 AM CDT 12:00 PM CDT Zoie Khanna LAB_1 Performing Organization Address [facility] Phon e Number HP CONVERSION ECG 12 Lead Inpatient (10/26/2012 10:17 AM CDT) P athologist Signature Ventricular Rate 79 BPM MUSE GHP Atrial Rate 79 BPM MUSE GHP P-R Interval 148 ms MUSE GHP QRS Duration 94 ms MUSE GHP QT 380 ms MUSE GHP QTc 435 ms MUSE GHP P [place] 40 degrees MUSE GHP R [place] 11 degrees MUSE GHP T [place] 27 degrees MUSE GHP Specimen (Source) Anatomical Collection Method Collection Time Re ceived Time Location / / Volume Laterality 10/26/2012 10:17 AM CDT Narrative MUSE GHP - 07/29/2019 1:56 PM CDT Sinus rhythm Normal ECG When compared with ECG of 25-OCT-2012 19 :36, No significant change was found Confirmed by HAL HARGROVE ([id number]), editorial cartoonist PEPPER HERNANDEZ ([id number]) on 10/26/2012 2:20:40 PM Procedure Note Epic, Internal Processing - 08/01/2019Fo rmatting of this note might be different from the original. Sinus rhythm Normal ECG When compared with ECG of 25-OCT-2012 19 :36, No significant change was found Confirmed by HAL HARGROVE ([id number]), editorial cartoonist PEPPER HERNANDEZ ([id number]) on 10/26/2012 2:20:40 PM Estevan Taylor MD PN ECG ORDERABLES Performing Organization Address City/[facility] Code Phon e Number MUSE GHP [address] [place] [address] BEDSIDE GLUCOSE MONITOR (10/26/2012 8:13 AM CDT) athologist Signature Bedside Blood 251 mg/dL HP CONVERSION Glucose Test Specimen Anatomical Collection Method Collection Time Receive d Time (Source) Location / / Volume Laterality 10/26/2012 8:13 AM 3 8:45 CDT AM CDT Monica Valle [facility] LAB_1 Performing Organization Address [facility] Code Phon e Number HP CONVERSION (ABNORMAL) APTT (Activated Partial Thromboplastin Time) (10/26/2012 7:03 AM CDT) [facility] gist Method Time Signature Partial 76.4 (H) 25.0 - HP CONVERSION Thromboplastin 38.0 sec Time Specimen Anatomical Collection Method Collection Time Receive d Time (Source) Location / / Volume Laterality 10/26/2012 7:03 AM 3 7:46 CDT AM CDT Zoie Khanna DO LAB_1 Performing Organization Address [facility] Code Phon e Number HP CONVERSION Potassium (10/26/2012 7:03 AM CDT) athologist Signature Potassium 4.5 3.5 - 5.2 HP CONVERSION mEq/L Specimen Anatomical Collection Method Collection Time Receive d Time (Source) Location / / Volume Laterality 10/26/2012 7:03 AM 3 7:46 CDT AM CDT Zoie Khanna DO LAB_1 Performing Organization Address [facility] Phon e Number HP CONVERSION (ABNORMAL) Hgb A1c (10/26/2012 7:03 AM CDT) athologist Signature HGB A1C 11.1 (H) 0.0 - 6.0 % HP CONVERSION Specimen Anatomical Collection Method Collection Time Receive d Time (Source) Location / / Volume Laterality 10/26/2012 7:03 AM 3 7:46 CDT AM CDT Zoie Khanna DO LAB_1 Performing Organization Address [facility] Phon e Number HP CONVERSION LABS CARD PROF TROPI 6 HRS (10/26/2012 2:07 AM CDT) athologist Signature Tropi At 6 Hrs <0.05 0.00 - HP CONVERSION 0.04 ng/mL Specimen Anatomical Collection Method Collection Time Receive d Time (Source) Location / / Volume Laterality 10/26/2012 2:07 AM 3 2:10 CDT AM CDT Zoie Khanna DO LAB_1 Performing Organization Address [facility] Code Phon e Number HP CONVERSION (ABNORMAL) APTT (Activated Partial Thromboplastin Time) (10/25/2012 10:11 PM CDT) [facility] gist Method Time Signature Partial 64.3 (H) 25.0 - HP CONVERSION Thromboplastin 38.0 sec Time Specimen Anatomical Collection Method Collection Time Receive d Time (Source) Location / / Volume Laterality 10/25/2012 10:11 10/25/2012 PM CDT 10:14 PM CDT Zoie Khanna DO LAB_1 Performing Organization Address [facility] Phon e Number HP CONVERSION Creatinine / GFR (10/25/2012 9:53 PM CDT) athologist Signature Creatinine 0.7 0.4 - 1.3 HP CONVERSION Serum mg/dL [...] Time (Source) Location / / Volume Laterality 10/25/2012 9:53 PM 3 CDT 10:08 PM CDT Zoie Khanna DO LAB_1 Performing Organization Address City/[facility]/ZIP Code Phon e Number HP CONVERSION CARD PROF TROPI 90 MIN (10/25/2012 9:53 PM CDT) P athologist Signature Tropi at 90 Min <0.05 0.00 - HP CONVERSION 0.04 ng/mL Specimen Anatomical Collection Method Collection Time Receive d Time (Source) Location / / Volume Laterality 10/25/2012 9:53 PM 3 CDT 10:08 PM CDT Zoie Khanna DO LAB_1 Performing Organization Address [facility] Phon e Number HP CONVERSION BEDSIDE GLUCOSE MONITOR (10/25/2012 9:38 PM CDT) P athologist Signature Bedside Blood 190 mg/dL HP CONVERSION Glucose Test Specimen Anatomical Collection Method Collection Time Receive d Time (Source) Location / / Volume Laterality 10/25/2012 9:38 PM 3 9:40 CDT PM CDT Zoie Khanna DO LAB_1 Performing Organization Address [facility] Phon e Number HP CONVERSION INR/Protime (10/25/2012 8:07 PM CDT) P athologist Signature Prothrombin Time 13.8 11.8 - HP CONVERSION 14.0 sec INR 1.0 HP CONVERSION Comment: Recommendations for INR in warfarin ther apy: (Chest, Vol. 119, No. 1, Apr 2000, Suppl ement). Prevention and treatment of venous throm bosis; ? INR 2.0-3.0 Treatment of PE; Prevention of systemic embolism due to prosthetic tissue heart valves, b ileaflet mechanical valves in the aortic position ,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
--- OUTSIDE RECORDS SUMMARY | 2022-02-12 12:13 | XMS_ITS | Encounter Summary ---
:1970 Author Organization [facility] Address [address] [place] [address] Care Team Providers Name Role Phone Gagandeep Hinojosa MD Primary Care Provider Reason for Visit Reason Comments Diabetes Encounter Details Date Type Department Care Team Description 05/17/2012 Office Visit Gagandeep Storm Type II or unspecified type diabetes mellitus without mention of complication, uncontrolled (Primary Dx); Romario Rubio MD Proteinuria; [address] Unspecified essential hypert ension; [place] [address] [address] Other and unspecified hyperlipidemia; [phone] [place] [phone] Tobacco use disorder; [phone] Obesity, unspec ified (Work) Social History Tobacco Use Types Packs/Day Years Used Date Smoking Tobacco: Never Assessed Sex Assigned at Date Recorded Not on file documented as of this encounter Last Filed Vital Signs Vital Sign Reading Time Taken Comments Blood Pressure 139/97 05/17/2012 11:03 AM WHEEL ALIGNMENT TECHNICIAN omron Pulse 84 05/17/2012 10:54 AM WHEEL ALIGNMENT TECHNICIAN Temperature - - Respiratory Rate - - Oxygen Saturation - - Inhaled Oxygen Concentration - - Weight 104.8 kg (231 lb) 05/17/2012 10:54 AM WHEEL ALIGNMENT TECHNICIAN Height 177.8 cm (5' 10) 05/17/2012 10:54 AM WHEEL ALIGNMENT TECHNICIAN Body Mass Index 33.15 05/17/2012 10:54 AM WHEEL ALIGNMENT TECHNICIAN documented in this encounter Patient Instructions Patient InstructionsGagandeep Hinojosa MD - 05/17/2012 8:26 PM CST My Diabetes at a Glance Aspirin Use Y/N A1C % Blood Pressure mm/Hg LDL Cholesterol mg/dL Tobacco Use Y/N Eye Exam Foot ExamUrine Microalbumin Most Recent Results Yes 10.2 139/97 122 Yes normal normal 93 Prior Results Yes 10.6 106/75 122 Yes normal normal 93 Your Goal 81 milligrams a day or [...] A normal value is less than 30. L ALIGNMENT TECHNICIAN documented in this encounter Progress Notes Gagandeep Hinojosa MD - 05/17/2012 8:26 PM CST SUBJECTIVE: 42 y.o. male presents today for diabetes check. Aspirin:Continues to take aspirin daily. No stomach pains, no black or tarry stools. Blood pressure:Patient has not been checking blood pressures at home. Patient did not bring in outside blood pressure records. Blood sugars: Patient has been checking blood sugars. Blood sugars have not been at goal, mainly because he is unable to afford his insulin.. No symptomatic highs or lows. Patient Patient did not bringin outside records.. Cholesterol: Lipids have not been at goal. No muscle aches or pains. Tobacco: Patient reports that he has been smoking Cigarettes. He has been smoking about 0.5 packs per day for the past 25 years. He quit smokeless tobacco use about 12 months ago. Eye exam: Patient is up-to-date [...] See Above Medications: Reviewed and updated Current outpatient prescriptions ordered prior to encounter Medication Sig Dispense Refill [...] injection, 4 daily 200 each prn ??? DISCONTD: insulin NPH (NOVOLIN N) 100 unit/mL Susp Inject 76 Units subcutaneously 2 times daily (before meals). breakfast and dinner 10 mL 5 ??? DISCONTD: insulin regular (NOVOLIN R) 100 unit/mL Soln Inject 76 Units subcutaneously 2 times daily (before meals). breakfast and dinner 10 mL 5 ??? lisinopril (PRINIVIL, ZESTRIL) 5 mg tablet TAKE 1 TABLET BY MOUTH DAILY . 90 tablet 0 ??? DISCONTD: nicotine (NICODERM CQ) 21 mg/24 [address] [...] tablet by mouth nightly. 90 tablet 3 Adverse Drug Reactions: Allergies Allergen Reactions ??? Haloperidol Shock ??? Thiothixene Other (See Comments) Muscle spasm OBJECTIVE: Vital Signs: BP 139/97 Pulse 84 Ht 5' 10 (1.778 m) Wt 231 lb (104.781 kg) BMI 33.15 kg/m2 General: Alert, Oriented, NAD Head: Normocephalic. [...] exam: no sores, no swelling, no edema Labs: Lab Results Component Value Date A1C 10.2* 05/17/2012 MICROALBUR 93.0 02/01/2012 CREA 0.8 04/30/2011 Lab Results Component Value Date CHOLESTEROL 203* 02/01/2012 HDL 28* 02/01/2012 LDL 122 02/01/2012 TRIGLYCERIDE 266* 02/01/2012 Lab Results Component Value Date ALT 38 05/17/2012 AST 32 05/17/2012 HGB A1C Date Value Range Status 05/17/2012 10.2* 0.0-6.0 (%) Final Hemoglobin A1CRM Date Value Range Status 11/25/2010 10.0* 0.0-6.0 (%) Final Hemoglobin A1C, POC Date Value Range Status 07/06/2011 10.6* -6.0 (%) Final Lab Results Component Value Date/Time HGB A1C 10.2* 05/17/2012 10:35 Hemoglobin A1CRM 10.0* 11/25/2010 16:18 Hemoglobin A1C, POC 10.6* 07/06/2011 16:50 No results found for this basename: GLUF Lab Results Component Value Date CL 108 04/30/2011 ASSESSMENT: 1. Type 2 diabetes, uncontrolled 2. Hypertension, uncontrolled 3. Hyperlipidemia, uncontrolled 1. DM w/o complication type II, uncontrolled (250.02) insulin regular (NOVOLIN R) 100 unit/mL Soln, insulin NPH (NOVOLIN N) 100 unit/mL Susp PLAN: 1. Medical home referral provided to help with diabetes financing. 2. Hemoglobin A1c pending. The patient was discharged ambulatory and in stable condition. Diabetes measures: A1c Due: 3 months Foot Exam: 3 months Eye exam: June, Cholesterol: 3 months, although patient has been unable to afford his statin Electrolytes: UMAR: 3 months Aspirin: yes Tobacco: yes documented in this encounter Plan of Treatment Not on filedocumented as of this encounter Visit Diagnoses Diagnosis Type II or unspecified type diabetes jasen litus without mention of complication, uncontrolled - Primary Proteinuria Unspecified essential hypertension (HRC) Unspecified essential hypertension Other and unspecified hyperlipidemia (HR C) Other and unspecified hyperlipidemia Tobacco use disorder (HRC) Tobacco use disorder Obesity, unspecified (HRC) Obesity, unspecified documented in this encounter Care Teams Heat Treater Helper Relationship Specialty Start Date End Date Gagandeep Hinojosa MD PCP - General 05/17/12 [address] [facility] [place] [address] Vane Zarate Psychiatrist Psychiatry 03/22/12 documented as of this encounter
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
--- OUTSIDE RECORDS SUMMARY | 2022-02-12 12:13 | XMS_ITS | Encounter Summary ---
:1970 Author Organization [employer] Address [address] [place] [address] Care Team Providers Name Role Phone Gagandeep Hinojosa MD Primary Care Provider Reason for Visit Reason Comments Rectal Bleeding Encounter Details Date Type Department Care Team Description 09/20/2012 Nurse Triage [facility] Gagandeep Hinojosa, Rectal Bleeding [address] [place] [address] [phone] [place], [place] [address] (Wo rk) Social History Tobacco Use Types Packs/Day Years Used Date Smoking Tobacco: Never Assessed Sex Assigned at Date Recorded Not on file documented as of this encounter Nursing Notes Ruth Ann Nelson RN - 09/20/2012 8:57 PM CDT Protocol: RECTAL [id number] Negative: Taking Coumadin (warfarin), Pradaxa (dabigatran), or known bleeding disorder (e.g., thrombocytopenia) Negative: Severe dizziness (e.g., unable to stand, requires support to walk, feels like passing out now) Negative: [1] Constant abdominal pain AND [2] present > 2 hours Affirmative: Patient sounds very sick or weak to the triager Disposition of Go To ED Now (Or PCP Triage) suggested. Protocol: RECTAL [id number] Affirmative: Large mass protruding out of rectum Disposition of Go To ED Now suggested. Patient calling. He reports blood in stool and rectal swelling. Flecks of blood in the toilet water.Blood also noted on underwear and shorts today. Rectal area is currently bleeding. Below the rectumis swollen. Pt states he cannot visualize rectum but it feels like a mass is protruding from it. Nofever. Mild abdominal pain x 30 minutes. Advised to go to ER, patient verbalized understanding, no further questions. documented in this encounter Plan of Treatment Not on filedocumented as of this encounter Visit Diagnoses Not on filedocumented in this encounter Care Teams Project Account Manager Relationship Specialty Start Date End Date Gagandeep Hinojosa MD PCP - General 05/17/12 [facility] [facility] [place] [id number] Vane Zarate Psychiatrist Psychiatry 03/22/12 documented as of this encounter
--- OUTSIDE RECORDS SUMMARY | 2022-02-12 12:13 | XMS_ITS | Encounter Summary ---
:1970 Author Organization [facility] Address [address] [address] Care Team Providers Name Role Phone Lilian Persaud DO Primary Care Provider Reason for Referral Specialty Diagnoses / Procedures Referred By Contact [place] [address] [place] [address] Referral ID Status Reason Start Date Expiration Date Visits Requ ested Visits Authorized Encounter Details Date Type Department Care Team Description 02/16/2012 Notes/Orders Lilian Camejo Other d isorders of lipoid metabolism; Medicine DO Coronary atherosclerosis of unspecified type of vessel, little shell tribe or graft; [address] [place] [address] KACHINA T Type II or unspecified type diabetes jasen litus without mention of complication, uncontrolled; [address] 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 Coronary atherosclerosis of unspecified type of vessel, little shell tribe or graft (HRC) Coronary atherosclerosis of unspecified type of vessel, little shell tribe or graft Type II or unspecified type diabetes jasen litus without mention of complication, uncontrolled ASHD (arteriosclerotic heart disease) (H RC) Coronary atherosclerosis of unspecified type of vessel, little shell tribe or graft History of PTCA Postsurgical percutaneous transluminal c oronary angioplasty status documented in this encounter Care Teams Clinical Statistics Manager Relationship Specialty Start Date End Date Lilian Persaud DO PCP - General 12/23/10 05/16/12 [address] [place] [address] documented as of this encounter
--- OUTSIDE RECORDS SUMMARY | 2022-02-12 12:13 | XMS_ITS | Encounter Summary ---
:1970 Author Organization [employer] Address [address] [place] [address] Care Team Providers Name Role Phone Lilian Persaud DO Primary Care Provider Reason for Visit Reason Comments RESULTS, TEST Encounter Details Date Type Department Care Team Description 11/17/2011 Telephone [facility] Lilian Persaud DO RESULTS, TEST [address] [facility] [place] . [address] [place] [address] [place] [address] [phone] (Wo rk) Social History Tobacco Use Types Packs/Day Years Used Date Smoking Tobacco: Never Assessed Sex Assigned at Date Recorded Not on file documented as of this encounter Nursing Notes Freya Hess - 11/19/2011 11:24 AM CDT Left vm for pt informing of note below. Routing note to pt's mainspring winder Brittany Main MD who ordered test. Lilian Persaud DO - 11/19/2011 9:36 AM CDT I believe mainspring winder ordered this test, as I did not order this test. Please let pt know that it appears to be normal but he should also speak to his mainspring winder about results. Shefali Silva - 11/18/2011 9:48 AM CDT Procedure done at [facility]. NUCLEAR MYOCARDIAL PERFUSION STUDY REPORT, 11/10/2011 INDICATION: Chest pain. 41-year-old man with known coronary artery disease. He has a history of a prior grw-DG-vnrgewitr myocardial infarction. He is status post PCI to a mid right coronary artery lesion in April 2011. EXERCISE PROCEDURE: The patient performed treadmill exercise using a Lam protocol, completing 8 minutes 50 seconds. The heart rate was 96 beats per minute at baseline and increased to 166 beats at peak exercise which was 92% of the maximum predicted heart rate. The blood pressure response was normal. Patient did not develop any symptoms other than fatigue during the procedure. No EKG changes consistent with ischemia were seen. Myocardial perfusion imaging was performed at rest following the injection of 10.9 mCi of technetium-99 Myoview. At peak exercise, the patient was injected with 34.2 mCi oftechnetium-99 Myoview. FINDINGS: The overall quality of the study is good. The left ventricular cavity is noted to be normal. SPECT images demonstrate homogenous tracer distribution throughout the myocardium. Gated SPECT imaging reveals normal myocardial thickening and wall motion. IMPRESSION: Myocardial perfusion imaging is normal. Overall left ventricular systolic function was normal. There were no prior studies available for comparison. Jud Curry RN - 11/17/2011 4:18 PM CDT to DA for Stress test results Amy Flores - 11/17/2011 4:17 PM CDT Lab/Radiology Results Primary Care Provider: Lilian Persaud, DO What test result is needed? Stress test When and where was test done? [facility] 11/10/11 Who ordered the test? Lilian Persaud, DO documented in this encounter Plan of Treatment Not on filedocumented as of this encounter Visit Diagnoses Not on filedocumented in this encounter Care Teams Risk Management Specialist Relationship Specialty Start Date End Date Lilian Persaud DO PCP - General 12/23/10 05/16/12 [address] [place] [address] documented as of this encounter
--- OUTSIDE RECORDS SUMMARY | 2022-02-12 12:13 | XMS_ITS | Encounter Summary ---
:1970 Author Organization [employer] Address [address] [place] [address] Care Team Providers Name Role Phone CoriLilian li Homa SAL Primary Care Provider Reason for Visit Reason Comments RESULTS, TEST Encounter Details Date Type Department Care Team Description 04/07/2012 Telephone [place] Gagandeep Hinojosa MD RESULTS, TEST [address] [facility] . [address] [place] [address] [place] [address] [phone] (Wo rk) Social History Tobacco Use Types Packs/Day Years Used Date Smoking Tobacco: Never Assessed Sex Assigned at Date Recorded Not on file documented as of this encounter Nursing Notes Jackeline Al - 04/07/2012 3:35 PM CST Timur is scheduled with Dr Farrell on Apr 10 at 11:00. Vanessa Pond LPN - 04/07/2012 2:42 PM CST pt advised of the below note forwarded to scheduling dept to contact pt TEMPERER Gagandeep Hinojosa MD - 04/07/2012 2:18 PM CST Call pt. U/S showeed no lesions. Would refer to general surgery. Refereral done TEMPERER Denita Reyes, RN - 04/07/2012 2:13 PM CST US results in [facility]. To Dr. Hinojosa for interpretation. TEMPERER Ale Fountain - 04/07/2012 2:06 PM CST Patient states had a ultrasound done on 04-06-12 and they did not find anything and asking if he should see doctor again for more tests. TEMPERER documented in this encounter Plan of Treatment Not on filedocumented as of this encounter Visit Diagnoses Diagnosis Soft tissue mass - Primary Disorders of soft tissue, unspecified documented in this encounter Care Teams Real Time Analyst Relationship Specialty Start Date End Date Lilian Persaud DO PCP - General 12/23/10 05/16/12 [address] [place] [address] V[address] Zarate Psychiatrsamantha Psychiatry 03/22/12 documented as of this encounter
--- OUTSIDE RECORDS SUMMARY | 2022-02-12 12:13 | XMS_ITS | Encounter Summary ---
:1970 Author Organization [employer] Address [address], [place] [address] Care Team Providers Name Role Phone CoriLilian li Primary Care Provider Reason for Visit Reason Comments Care Coordination Encounter Details Date Type Department Care Team Description 04/03/2012 Telephone Worship [facility] Care Dyana Valdez, Care Coordination Management PACKAGER OR PACKER AND WEIGHER, CARRIER DRIVER [address] [facility]. [address] [place] [id number] [phone] Social History Tobacco Use Types Packs/Day Years Used Date Smoking Tobacco: Never Assessed Sex Assigned at Date Recorded Not on file documented as of this encounter Nursing Notes Dyana Valdez - 04/03/2012 11:46 AM CST 04/03/12 Reached out to pt and offered Nurse Pharmacist Critical Care svcs, as well as a home visit. Pt declines participation at this time stating he is currently with the transition of care specialist in clinic to manage his Diabetes. Provided direct # for future questions/needs/changes and advised him svcs are at no charge, feel freeto contact in the future if interested - agrees to do so. Dyana Valdez RN Nurse Health Professor [phone] (O) [phone] (C) [facility], [facility] Office of Population Health [facility] documented in this encounter Plan of Treatment Not on filedocumented as of this encounter Visit Diagnoses Not on filedocumented in this encounter Care Teams Drapery Counselor Relationship Specialty Start Date End Date Lilian Persaud DO PCP - General 12/23/10 05/16/12 [address] [address] [facility] 03/22/12 documented as of this encounter
--- OUTSIDE RECORDS SUMMARY | 2022-02-12 12:14 | XMS_ITS | Encounter Summary ---
:1970 Author Organization [facility] Address [address] [place] [address] Care Team Providers Name Role Phone Lilian Persaud DO Primary Care Provider Reason for Visit Reason Comments Medication Refill Question Encounter Details Date Type Department Care Team Description 09/01/2011 Telephone [facility] Lilian Persaud, Medicat ion Refill Medicine DO Question [address] [address] [place] [address] [place] [address] [phone] (Wo rk) Social History Tobacco Use Types Packs/Day Years Used Date Smoking Tobacco: Never Assessed Sex Assigned at Date Recorded Not on file documented as of this encounter Nursing Notes Stevenson Greene MD - 09/13/2011 3:34 PM CDT OK. Eliana Kumar RN - 09/13/2011 3:29 PM CDT Addended by: ELIANA KUMAR on: 09/13/2011 Modules accepted: Orders Eliana Kumar RN - 09/13/2011 3:28 PM CDT Pt. calling stating he would need a rx sent to the pharmacy to check on the biggs of crestor 40mg . Rx faxed for # 30 pills . Please review ok with Fenofibrate ? Warning box alert when ordered . Aviva Bowles RN - 09/10/2011 3:46 PM CDT Patient calls stating Lipitor would not be an option for him and he requires an alternative to the medication. Left patient a message informing him to check if Crestor 40mg is a suitable alternative and to call us back with the information. Eliana Kumar RN - 09/01/2011 4:27 PM CDT Explained information to pt. and he will call me back if he can not afford the generic lipitor. Eliana Kumar RN - 09/01/2011 4:18 PM CDT Generic Lipitor faxed in and will call pt. and if biggs too high we will have him check on the priceof crestor 40mg . Per . Stevenson Greene MD - 09/01/2011 2:15 PM CDT He really needs Lipitor 80 mg or Crestor 40 mg. If the biggs is absolutely prohibitive, simv 80 mg would be a default. Lilian Persaud DO - 09/01/2011 1:29 PM CDT Patient was in the office today and said that his insurance won't cover Lipitor, but will cover generic brand. Pt needs refill of Lipitor generic (if you feel is appropriate) sent to pharmacy, he has 1week left. He also mentioned that he won't be able to afford Fenofibrate much longer. Pt has appt with Cardio dept Dr Greene, September 15 and will mention then. Can you please address Lipitor issue before he runs out? Thank you! Lilian documented in this encounter Plan of Treatment Not on filedocumented as of this encounter Visit Diagnoses Not on filedocumented in this encounter Care Teams Nursing Home Admissions Director Relationship Specialty Start Date End Date Lilian Persaud DO PCP - General 12/23/10 05/16/12 [address] [address] documented as of this encounter
--- OUTSIDE RECORDS SUMMARY | 2022-02-12 12:14 | XMS_ITS | Encounter Summary ---
:1970 Author [facility] Address [address], [place] [address] Care Team Providers Name Role Phone Lilian Persaud DO Primary Care Provider Reason for Visit Reason Comments Refill Encounter Details Date Type Department Care Team Description 08/13/2011 Refill [facility] Tanesha Amaya MD Refill [address] [place] [address] [address] [facility] [address] [address]226 (Wo rk) Social History Tobacco Use Types Packs/Day Years Used Date Smoking Tobacco: Never Assessed Sex Assigned at Date Recorded Not on file documented as of this encounter Nursing Notes Ysabel Rosales B - 08/16/2011 2:13 PM CDT Renewed medication per medication refill protocol. aspirin 81 mg documented in this encounter Plan of Treatment Not on filedocumented as of this encounter Visit Diagnoses Not on filedocumented in this encounter Care Teams Emergency Man Relationship Specialty Start Date End Date Liilan Persaud DO PCP - General 12/23/10 05/16/12 [address] [place] [address] documented as of this encounter
--- OUTSIDE RECORDS SUMMARY | 2022-02-12 12:14 | XMS_ITS | Encounter Summary ---
:1970 Author Organization [employer] [facility] Address [address] [place] [address] Care Team Providers Name Role Phone Lilian Persaud DO Primary Care Provider Reason for Visit Reason Comments Medication Problems Encounter Details Date Type Department Care Team Description 07/27/2011 Refill [facility] Lilian Persaud DO Medication Problems [address] [address] [place] [address] [place] [address] [phone] (Wo rk) Social History Tobacco Use Types Packs/Day Years Used Date Smoking Tobacco: Never Assessed Sex Assigned at Date Recorded Not on file documented as of this encounter Nursing Notes Lilian Persaud DO - 07/28/2011 5:09 PM CDT spoke with pt. Checked on pricing of insulin. [facility] has NPH and Regular insulin for $25 per vial. Advised pt of new insulin dosing. New rx's sent with dosing per endocrine. Pt will call if any questions or issues. Pt will call with BS readings once starts new insulin. Pt advised of directions on newregimen. Pt not able to afford DM educator, since not covered in the past. Cordelia Leyva RN - 07/28/2011 3:30 PM CDT To Karo Johnson to address Ajit Van - 07/28/2011 3:23 PM CDT Patient calling back regarding insulin. Its $25 per vial at [facility] there are 1000 units in each vial. Please have Dr Persaud call back as to what is decided regarding his insulin. Lilian Castillo DO - 07/28/2011 3:05 PM CDT I spoke with nurse educator who rec trying [facility] for generic low cost insulin. She also rec writing for a larger vial of insulin quantity to only have 1 co-pay. I relayed this info to the pt, he doesn't have co-pays at this point, he pays entirely for his meds.He was advised to call [facility] and check in to cheapest insulin available and I will rx new insulin. I did look online to see if I could get prices, but not available. Pt will call back with any questions. I will await his call for insulin info and then do new rx. Lilian Castillo DO - 07/28/2011 11:09 AM CDT spoke with member of [facility] education, awaiting call back from nurse to provide info for pt. She thinks [facility] has free assistance. Lilian Castillo DO - 07/27/2011 12:42 PM CDT Spoke with pt. Pt says he can't afford insulin ($124 for 9 days), since he has Medicare part D and he's in the donut hole and has to pay villegas for all his meds. He tried to get assistance with med programs, but he and make too money. Pt also called drug companies for assistance and can't get help because he makes too much money. Ceci Calhoun MD - 07/27/2011 12:05 PM CDT Pt is using high dose insulin, and would not be able to maintain control with oral meds only. Pt could discontinue Lantus/Novolog and switch to NPH and Regular insulin. Pt should make appt with one of the DM educators to review insulin mixing and possible change in meal plan. New doses: 65 units NPH/65 units Regular BID before breakfast and dinner. Lilian Persaud DO - 07/27/2011 11:07 AM CDT I will forward to Dr Calhoun who just saw pt to see if she has any suggestions for pt. Sarah Leon - 07/27/2011 10:[address] Persaud Veena Brito - 07/27/2011 10:50 AM CDT Pt states that he is no longer able to afford insulin and is asking to go back to oral medication. Pt requests to speak with Dr Persaud regarding this. He has scheduled diabetic ck for 08/11/11. documented in this encounter Plan of Treatment Not on filedocumented as of this encounter Visit Diagnoses Diagnosis Type II or unspecified type diabetes jasen litus without mention of complication, uncontrolled - Primary documented in this encounter Care Teams Community Liaison Officer Relationship Specialty Start Date End Date Lilian Persaud DO PCP - General 12/23/10 05/16/12 [address] [id number] documented as of this encounter
--- OUTSIDE RECORDS SUMMARY | 2022-02-12 12:14 | XMS_ITS | Encounter Summary ---
:1970 Author Organization [facility] Address [address] [place] [address] Care Team Providers Name Role Phone Lilian Persaud DO Primary Care Provider Reason for Visit Reason Comments Chest Pain Encounter Details Date Type Department Care Team Description 08/19/2011 Nurse Triage [facility] Lilian Persaud DO Chest Pain [address] [address] [place] [address] [place] [address] [phone] (Wo rk) Social History Tobacco Use Types Packs/Day Years Used Date Smoking Tobacco: Never Assessed Sex Assigned at Date Recorded Not on file documented as of this encounter Nursing Notes Diane Hernández RN - 08/19/2011 5:32 PM CDT Protocol: CHEST [id number] Affirmative: [1] Pain lasting > 5 minutes AND [2] age > 30 AND [3] at least one cardiac risk factor (i.e., hypertension, diabetes, obesity, smoker or strong family history of heart disease) Disposition of Call 911 suggested. Pt. calling, history of OH in 05/06.Pt. developed severe CP and numbness to left arm 1 hr. ago. Tookan ASA is not on Nitro. No sweating, no nausea. documented in this encounter Plan of Treatment Not on filedocumented as of this encounter Visit Diagnoses Not on filedocumented in this encounter Care Teams Straw Hat Washer Operator Relationship Specialty Start Date End Date Lilian Persaud DO PCP - General 12/23/10 05/16/12 [address] [address] documented as of this encounter
--- OUTSIDE RECORDS SUMMARY | 2022-02-12 12:14 | XMS_ITS | Encounter Summary ---
:1970 Author Organization [facility] Address [address] [place] [address] Care Team Providers Name Role Phone Lilian Persaud DO Primary Care Provider Reason for Visit Reason Comments Refill Encounter Details Date Type Department Care Team Description 07/30/2011 Refill [facility] Lilian ePrsaud DO Refill [address] [facility] [address] [facility] [address] [place] [address] [phone] (Wo rk) Social History Tobacco Use Types Packs/Day Years Used Date Smoking Tobacco: Never Assessed Sex Assigned at Date Recorded Not on file documented as of this encounter Nursing Notes Maximilian Ag G - 07/30/2011 1:58 PM CDT REFILL APPOINTMENT NEEDED Please call patient and schedule appointment within 30 days. Medication has been renewed and sent to pharmacy for a 30 day supply. Comment: Appt 08/11/11 documented in this encounter Plan of Treatment Not on filedocumented as of this encounter Visit Diagnoses Not on filedocumented in this encounter Care Teams Internal Communications Manager Relationship Specialty Start Date End Date Lilian Persaud DO PCP - General 12/23/10 05/16/12 [facility]15 [facility] [address] documented as of this encounter
--- OUTSIDE RECORDS SUMMARY | 2022-02-12 12:14 | XMS_ITS | Encounter Summary ---
:1970 Author Organization [facility] [facility] Address [address] [place] [address] Care Team Providers Name Role Phone Lilian Persaud DO Primary Care Provider Reason for Visit Reason Comments Diabetes WART Encounter Details Date Type Department Care Team Description 11/02/2011 Office Visit [facility] Lilian Persaud, DM w/o complication type II, uncontrolled (Primary Dx); Medicine DO Plantar wart; [address] [place] [address] [place], [place] [phone] [address] Social History Tobacco Use Types Packs/Day Years Used Date Smoking Tobacco: Never Assessed Sex Assigned at Date Recorded Not on file documented as of this encounter Last Filed Vital Signs Vital Sign Reading Time Taken Comments Blood Pressure 116/81 11/02/2011 11:25 AM CDT Pulse 89 11/02/2011 11:25 AM CDT Temperature - - Respiratory Rate - - Oxygen Saturation - - Inhaled Oxygen Concentration - - Weight 105.7 kg (233 lb) 11/02/2011 11:25 AM CDT Height - - Body Mass Index 33.91 09/16/2011 2:40 PM CDT documented in this encounter Progress Notes Lilian Persaud DO - 11/02/2011 12:48 PM CDT Subjective: History was provided by the patient. 41 y.o. male needs retreatment of wart(s). patient says a couple of the warts on his wrist have resolved, one is still remaining. He has been using bzfv-rtg-azyhwis salicylic acid treatments. Patient tolerated procedure last time well without any problems. Patient had wart removed from his penis, healed well without any complications. Patient's diabetes #'s are doing much better, average range 120-150 with no low readings. Patient did have high readings for couple days, when he did not have enough villegas to pay for his insulins medication. Patient continues to try to eat healthy. Objective: Skin: 2 wart(s) noted on the left wrist and left great toe. Size range is wrist 3 mm x 4 mm shiny papular lesion and great toe 3 mm round, residual mosaic pattern. Assessment: Warts (Verruca Vulgaris) Timur was seen today for diabetes and verrucous vulgaris. Diagnoses and associated orders for this visit: Dm w/o complication type ii, uncontrolled - Hemoglobin A1C Glycosylated; Future - Microalbumin Urine Random; Future Plantar wart - DESTRUCT BENIGN SKIN LESIONS UP TO 14 [id number] Wart - DESTRUCT BENIGN SKIN LESIONS UP TO 14 [id number] Plan: 1. Liquid nitrogen was applied to 2 wart(s) for three 3-5 second freeze/thaw cycles. 2. The patient will return at 2-4 week intervals for retreatments as needed. Use OTC treatment as instructed. Diabetes: HgbA1c in November with fasting cholesterol for cardiology. Continue present treatment, no change in insulins this time. Followup office visit in November, sooner for wart retreatment if needed. Patient will have labs done prior to appointment. Patient discharged in stable condition. documented in this encounter Plan of Treatment Not on filedocumented as of this encounter Visit Diagnoses Diagnosis Type II or unspecified type diabetes jasen litus without mention of complication, uncontrolled - Primary Plantar wart Wart Viral warts, unspecified documented in this encounter Care Teams Venetian Blind Washer Relationship Specialty Start Date End Date Lilian Persaud DO PCP - General 12/23/10 05/16/12 [address] [address] documented as of this encounter
--- OUTSIDE RECORDS SUMMARY | 2022-02-12 12:14 | XMS_ITS | Encounter Summary ---
:1970 Author Organization [facility] Address [address] [place] [address] Care Team Providers Name Role Phone Lilian Persaud DO Primary Care Provider Reason for Visit Reason Comments Other Encounter Details Date Type Department Care Team Description 09/02/2011 Telephone [facility] Lilian Persaud, DO Other [address] [address] [place] [address] [place] [address] [phone] (Wo rk) Social History Tobacco Use Types Packs/Day Years Used Date Smoking Tobacco: Never Assessed Sex Assigned at Date Recorded Not on file documented as of this encounter Nursing Notes Shefali Silva - 09/03/2011 12:32 PM CDT Have not seen fax and am unsure if it was faxed by some one else. Not in EMR. Shefali Silva - 09/02/2011 11:19 AM CDT Have not seen fax. Maximilian Ag - 09/02/2011 11:07 AM CDT To DA to check on fax Joellen Holm. - 09/02/2011 11:03 AM CDT Jud checking the status of a diabetic order for medicare billing that was faxed over on 08/30. documented in this encounter Plan of Treatment Not on filedocumented as of this encounter Visit Diagnoses Not on filedocumented in this encounter Care Teams Voice Engineer Relationship Specialty Start Date End Date Lilian Persaud DO PCP - General 12/23/10 05/16/12 [address] [address] documented as of this encounter
--- OUTSIDE RECORDS SUMMARY | 2022-02-12 12:14 | XMS_ITS | Encounter Summary ---
:1970 Author Organization [employer] Address [address] [place] [address] Care Team Providers Name Role Phone Lilian Persaud DO Primary Care Provider Reason for Visit Reason Comments YING Diabetes Encounter Details Date Type Department Care Team Description 09/01/2011 Office Visit [place] [facility] Lilian Persaud, DM w/o complication type II, uncontrolled (Primary Dx); Medicine DO [facility] wart; [address] [facility] [address] [address] [place] [address] [place], [place] [phone] [id number] Social History Tobacco Use Types Packs/Day Years Used Date Smoking Tobacco: Never Assessed Sex Assigned at Date Recorded Not on file documented as of this encounter Last Filed Vital Signs Vital Sign Reading Time Taken Comments Blood Pressure 110/78 09/01/2011 12:59 PM CDT Pulse 80 09/01/2011 12:59 PM CDT Temperature - - Respiratory Rate - - Oxygen Saturation - - Inhaled Oxygen Concentration - - Weight 103.9 kg (229 lb) 09/01/2011 12:59 PM CDT Height - - Body Mass Index 33.33 06/07/2011 10:38 AM INSURANCE SOLICITOR documented in this encounter Progress Notes Lilian Persaud DO - 09/02/2011 7:40 AM CDT SUBJECTIVE: Chief Complaint Patient presents with ??? Verrucous Vulgaris on left wrist & left big toe ??? Diabetes History of present illness: 41 y.o. male presents for wart treatment and diabetes. 3 weeks ago, wart on left great toe treated with cryotherapy, did well. Still there. Left thenar wrist has 3 warts that blistered a little after treatment with cryotherapy. No OTC home treatments. Pt has been keeping warts clean and covered. Pt would like treatment with cryotherapy again. Pt has slowly been increasing his insulin regimen per my guidance since he is not able to afford endocrinology or adzing and boring machine feeder appts. Pt feels great, gained 4 pounds. Active. Blood glucose readings: 08/19: 127, 141, 162. 08/20: 120, 142 and 163, 08/21: 155, 177, 192. 08/22: 107, 119, 140. 08/23: 110, 123, 141. 08/24: 114, 133, 154 08/25: 102, 123, 141. 08/26: 124 Low 107, asymptomatic. LAST EYE EXAM: July 2011, NORMAL PER PATIENT. Pt has Lipitor and Fenofibrate concerns, I sent note to cardiology to assist. Pt has cardio appt 09/16/11. Past Medical History Diagnosis Date ??? Tobacco [...] ? Hyperlipidemia LDL goal < 70 06/08/2011 Past Surgical History Procedure Date ??? Coronary angioplasty with stent placement No family history on file. History Social History ??? Marital Status: Spouse Name: N/A Number of Children: N/A ??? Years of Education: N/A Occupational History ??? Social History Main Topics ??? Smoking status: Former Smoker -- 0.0 packs/day for 25 years Types: Cigarettes ??? Smokeless tobacco: Former User Quit date: 04/29/2011 Comment: Smoking History Packs/day: ??? Alcohol Use: No Alcoholic Drinks/day: Amount:0; Freq:Never; ??? Drug Use: No ??? Sexually Active: Yes -- Female partner(s) Other Topics Concern ??? Not on file Social History Narrative ??? No narrative on file Current outpatient prescriptions ordered prior to encounter Medication Sig Dispense Refill ??? aspirin 81 mg chewable tablet TAKE 1 TABLET BY MOUTH DAILY . 100 tablet 1 ??? carvedilol (COREG) 6.25 mg tablet Take 1 tablet by mouth 2 times daily (with meals). 60 tablet 11 ??? clopidogrel (PLAVIX) 75 mg tablet Take 1 tablet by mouth daily (every 24 hours). 90 tablet 2 ??? clotrimazole (LOTRIMIN) 1 % cream Apply topically 2 times daily. until rash resolved 30 g 0 ??? divalproex (DEPAKOTE) 500 mg EC tablet Take 2,000 mg by mouth DAILY MORNING LAB. Do not cut/crush/chew. Take with food. ??? Fenofibrate 160 mg tablet Take 160 mg by mouth daily (every 24 hours). 30 tablet 2 ??? insulin (BD INSULIN PEN NEEDLE UF SHORT) 31 X /16 Ndle Inject 1 Needle subcutaneously. 250.02Use new [...] lisinopril (PRINIVIL, ZESTRIL) 5 mg tablet TAKE ONE TABLET BY MOUTH DAILY 30 tablet 0 ??? nicotine (NICODERM CQ) 14 mg/[address] 1 patch onto the skin every 24 hours. Remove after 16-24 hours. 28 patch 3 ??? nicotine (NICODERM CQ) 7 mg/[address] 1 patch onto the skin every 24 hours. Remove after 16-24hours. 28 patch 3 ??? omega-3 fatty acids-fish oil 340-1,000 mg capsule Take 2 capsules by mouth 2 times daily. Indications: HYPERTRIGLYCERIDEMIA 360 capsule 3 ??? risperiDONE (RISPERDAL) 4 mg tablet Take 4 mg by mouth daily (every 24 hours). Allergies Allergen Reactions ??? Haloperidol Shock ??? Thiothixene Other (See Comments) Muscle spasm ROS: otherwise negative with the exception of positives in HPI. OBJECTIVE: Filed Vitals: 09/01/11 1259 BP: 110/78 Pulse: 80 Weight: 229 lb (103.874 kg) General: Patient alert, in NAD. Skin: 3 warty verrucous papules on thenar left wrist approx 2-4 mm round, largest one raised, pink colored with mosaic pattern. verrucous papules: left great toe plantar surface 6 mm round mosaic pattern lesion with overlying thickened callus. Psychiatric: Alert & oriented with normal affect and insight, does not appear depressed or anxious. Timur was seen today for verrucous vulgaris and diabetes. Diagnoses and associated orders for this visit: Dm w/o complication type ii, uncontrolled Plantar wart - DESTRUCT BENIGN SKIN LESIONS UP TO 14 44266 Wart - DESTRUCT BENIGN SKIN LESIONS UP TO 14 99369 Other Orders - nicotine (NICODERM CQ) 21 mg/24 hr; Place 1 patch onto the skin every 24 hours. Remove after 16-24hours. continue present dose of insulins therapies , patient says this is an affordable option for him. I did send a note to cardiology to help address issues with affordability for his cholesterol medications. patient advised to continue same dose of insulins for one to 2 weeks and see how his blood sugars do. discussed all of therapy with fasting blood sugar 80-110. in 2 weeks, will increase insulins as appropriate to reach goal. Patient requested retreatment of warts today. patient advised to use avve-ity-aoiyipp wart removal therapies between office visits. patient will followup in 2-3 weeks, sooner as needed. patient discharged in stable condition. This note was produced using voice recognition software and may contain typographic or phonetic errors. PROCEDURE NOTE: Discussed risk of pain, blistering, infection, scarring, hypopigmentation, hyperpigmentation, and recurrence or need for retreatment. informed verbal consent obtained. Benefits of treatment and alternative treatments were also discussed. Clean technique was used throughout the procedure. Skin was cleaned & prepped with Alcohol. Scalpel used to pare down callus. Liquid nitrogen applied to freeze the entire lesion(s) including a narrow margin of surrounding skin. After thawing, freezing was repeated x 3. Band-Aid applied to lesion(s). PLAN: Patient will use OTC remedies and return if further treatment desired. Use OTC pain medications PRN per package instructions. Patient was given discharge instructions and was discharged in stable condition. Return to clinic if there is not complete resolution of the lesion over the next couple weeks. documented in this encounter Plan of Treatment Not on filedocumented as of this encounter Visit Diagnoses Diagnosis Type II or unspecified type diabetes jasen litus without mention of complication, uncontrolled - Primary Plantar wart Wart Viral warts, unspecified documented in this encounter Care Teams Microphone Operator Relationship Specialty Start Date End Date Lilian Persaud DO PCP - General 12/23/10 05/16/12 [address] [id number] documented as of this encounter
--- OUTSIDE RECORDS SUMMARY | 2022-02-12 12:14 | XMS_ITS | Encounter Summary ---
:1970 Author Organization [employer] Address [address], [place] [address] Care Team Providers Name Role Phone Lilian Persaud DO Primary Care Provider Reason for Visit Reason Comments Diabetes WART Fungus Encounter Details Date Type Department Care Team Description 08/11/2011 Office Visit [facility] Lilian Persaud, DM w/o complication type II, uncontrolled (Primary Dx); Medicine DO Dermatophytosis of the body; [address] [address] [address] Plantar wart; [address] [place], [place] Wart; [place] [address] Other disorders of lipoid metabolism [phone] Social History Tobacco Use Types Packs/Day Years Used Date Smoking Tobacco: Never Assessed Sex Assigned at Date Recorded Not on file documented as of this encounter Last Filed Vital Signs Vital Sign Reading Time Taken Comments Blood Pressure 116/80 08/11/2011 10:57 AM CDT Pulse 78 08/11/2011 10:57 AM CDT Temperature - - Respiratory Rate - - Oxygen Saturation - - Inhaled Oxygen Concentration - - Weight 102.1 kg (225 lb) 08/11/2011 10:57 AM CDT Height - - Body Mass Index 32.75 06/07/2011 10:38 AM LICENSED 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 Diabetes follow up ??? Verrucous Vulgaris left wrist & left foot-big toe ??? Fungus on abdomen History of present illness: 41 y.o. male presents for follow up multiple issues. 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 Patient has uncontrolled type 2 diabetes with significant insulin resistance, probably due to Risperdal treatment for bipolar. Patient was on Lantus and insulins with meals, but could not afford that regimen. Patient was recently switched to NPH insulin and regular insulin to help with affordability. Patient is currentlydoing 70 units of each twice a day with meals. Patient reports his fasting blood sugars are 142-166,with high reading 202. patient's bedtime blood sugar readings 196-50. Highest reading 264, none in the 300s. Patient had one low blood sugar reading of 92. Patient says he feels good, denies hypoglycemic symptoms. patient says he also cannot afford to go to diabetic educators since it is also not covered by his insurance. Lab Results Component Value Date/Time HGB A1C 9.9* 04/06/2011 13:53 Hemoglobin A1CRM 10.0* 11/25/2010 16:18 Warts : Patient has warts on his left great toe that was treated 2 months ago, he says it did blister and then heal without any difficulty. Wart is still present and he would like it treated again withcryotherapy. Patient is also noticed some developing warts on his left wrist. Patient would like this treated as well Rash: patient has a history of tinea corporis on his chest/ abdomen/back. patient noted recurrence of the same rash about 2 months ago , slowly spreading. patient uses Diflucan oral tablet for couple of weeks in the past, which resolved rash. treatment this time, none . Past Medical History Diagnosis Date ??? Tobacco [...] Refill ??? aspirin 81 mg chewable tablet Take 1 tablet by mouth daily (every 24 hours). 100 tablet 0 ??? atorvastatin (LIPITOR) 80 mg tablet Take 1 tablet by mouth daily (every 24 hours). 90 tablet 3 ??? carvedilol (COREG) 6.25 mg tablet Take [...] NPH (NOVOLIN N) 100 unit/mL Susp Inject 72 Units subcutaneously 2 times daily (before meals). breakfast and dinner 10 mL 5 ??? insulin regular (NOVOLIN R) 100 unit/mL Soln Inject 72 Units subcutaneously 2 times daily (before meals). [...] of positives in HPI. OBJECTIVE: Filed Vitals: 08/11/11 1057 BP: 116/80 Pulse: 78 Weight: 225 lb (102.059 kg) General: Patient alert, in NAD. Head: Normocephalic. Extremities: FROM with good strength, no lesions or deformities. CV: Regular rate without murmurs, rubs or gallops. Resp: Clear to auscultation without crackles, wheezes or distress. Skin: verrucous papules: left great toe plantar surface 6 mm round mosaic pattern lesion with overlying thickened callus. left lateral wrist as 2 verrucous papules measuring 3 mm and 2 mm round. there is also a 2-3 mm shiny macular area suspect for beginning wart. Psychiatric: Alert & oriented with normal affect and insight, does not appear depressed or anxious. Timur was seen today for diabetes, verrucous vulgaris and fungus. Diagnoses and associated orders for this visit: Dm w/o complication type ii, uncontrolled - insulin NPH (NOVOLIN N) 100 unit/mL Susp; Inject 72 Units subcutaneously 2 times daily (before meals). breakfast and dinner - insulin regular (NOVOLIN R) 100 unit/mL Soln; Inject 72 Units subcutaneously 2 times daily (beforemeals). breakfast and dinner Tinea corporis - clotrimazole (LOTRIMIN) 1 % cream; Apply topically 2 times daily. until rash resolved Plantar wart - DESTRUCT BENIGN SKIN LESIONS UP TO 14 13738 Wart - DESTRUCT BENIGN SKIN LESIONS UP TO 14 [address] Dyslipidemia will increase his both insulins to 72 units BID with meals. log blood sugars, if no blood sugar readings are below 120, increase to 75 units. patient will call with blood sugar readings next week. Treatment for tinea corporis in the past work well, Diflucan weekly, however severe drug drug interaction with new medications for cholesterol he is taking. trial of topical antifungal cream. PROCEDURE NOTE: Discussed risk of pain, blistering, infection, scarring, infection, hypopigmentation, hyperpigmentation, and recurrence or need for retreatment. Benefits of treatment and alternative treatments were also discussed. Clean technique was used throughout the procedure. Skin was cleaned & prepped with A lcohol. Scalpel used to pare down callus. Liquid nitrogen applied to freeze the entire lesion(s) including a narrow margin of surrounding skin. After thawing, freezing was repeated x 4. Band-Aid applied to lesion(s). PLAN: Patient will use OTC remedies and return if further treatment desired. Call or RTC if signs of infection. Advised of risk with diabetes. Use OTC pain medications PRN per package instructions. Patient was given discharge instructions and was discharged in stable condition. Return to clinic if there is not complete resolution of the lesion over the next month. This note was produced using voice recognition software and may contain typographic or phonetic errors. documented in this encounter Plan of Treatment Not on filedocumented as of this encounter Visit Diagnoses Diagnosis Type II or unspecified type diabetes jasen litus without mention of complication, uncontrolled - Primary Dermatophytosis of the body Plantar wart Wart Viral warts, unspecified 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 documented in this encounter Care Teams Fire Department Battalion Chief Relationship Specialty Start Date End Date Lilian Persaud DO PCP - General 12/23/10 05/16/12 [address] [id number] documented as of this encounter
--- OUTSIDE RECORDS SUMMARY | 2022-02-12 12:14 | XMS_ITS | Encounter Summary ---
:1970 Author Organization [employer] Address [address] [place] [address] Care Team Providers Name Role Phone Coir Rolando Luther DO Primary Care Provider Reason for Visit Reason Comments Coronary Artery Disease (CAD) Encounter Details Date Type Department Care Team Description 09/16/2011 Office Visit [facility] Stevenson Greene, Cor athrscl-uns vessel; [address] Other disorders of lipoid metabolism; [address] DM w/o complication type II, uncontrolle d; [place] [address] [place], [place] Nonspecific abnormal results of liver function study; [phone] S/P angioplasty with stent; [phone] (Wo rk) MD, old; History o f PTCA; Morbid obesity Social History Tobacco Use Types Packs/Day Years Used Date Smoking Tobacco: Never Assessed Sex Assigned at Date Recorded Not on file documented as of this encounter Last Filed Vital Signs Vital Sign Reading Time Taken Comments Blood Pressure 132/88 09/16/2011 2:40 PM CDT Pulse 88 09/16/2011 2:40 PM CDT Temperature - - Respiratory Rate - - Oxygen Saturation - - Inhaled Oxygen Concentration - - Weight 107.5 kg (237 lb) 09/16/2011 2:40 PM CDT Height 176.5 cm (5' 9.5) 09/16/2011 2:40 PM CDT Body Mass Index 34.5 09/16/2011 2:40 PM CDT documented in this encounter Patient Instructions Patient InstructionsEliana Kumar RN - 09/16/2011 2:58 PM CDT call with any questions [phone] Keri RN documented in this encounter Progress Notes Stevenson Greene MD - 09/16/2011 3:07 PM CDT Progress Notes signed by Stevenson Greene MD at 09/17/11925 Author: Stevenson Greene MD Service: (none) Author Type: Physician Filed: 09/17/11925 Note Time: 09/16/111506 Status: Signed Power Machine Operator: Stevenson Greene MD (Physician) NAME: SHARLENE VARNER MR#: [id number] CSN: [id number] AUTHENTICATING CLINICIAN: Stevenson Greene MD CONFIRM #: [id number] LOC: 3205 CLINIC PROGRESS NOTE DATE OF VISIT: 09/16/2011 : 1970 CHIEF COMPLAINT: Followup for coronary artery disease, issues with medications. HISTORY OF PRESENT ILLNESS: Mr. Varner is a 41-year-old male with diabetes mellitus, dyslipidemia, a previous history of smoking, who had been admitted to [facility] for a myocardial infarction in the beginning of April 2011. He was found to have 1-vessel coronary artery disease and underwent bare-metal stent implantation to the RCA. The patient reports that he walks about 1 mile a day. He denies any dyspnea or angina with activity. His main concern is related to medication. He cannot afford Lipitor, fenofibrate and Plavix. PAST MEDICAL HISTORY: 1. Coronary artery disease. a. Inferior wall myocardial infarction treated with a bare-metal stent to the RCA in April 2011. b. Preserved LV function. 2. Hypertension 3. Hyperlipidemia. 4. Diabetes mellitus. 5. Obesity. 6. Bipolar disorder. CURRENT MEDICATIONS: Confirmed with the patient and include aspirin 81 mg daily, Plavix 75 mg daily, but is running out, Lipitor 80 mg daily, but cannot afford it, simvastatin 80 mg daily, lisinopril 5 mg daily, fenofibrate 160 mg daily. SOCIAL HISTORY: He denies active smoking. He tries to exercise on a regular basis. REVIEW OF SYSTEMS: CONSTITUTIONAL: Weight increased by 7 pounds with insulin use. CARDIOVASCULAR: He denies angina or dyspnea. MUSCULOSKELETAL: No myalgia. ENDOCRINE: Better control of diabetes. PHYSICAL EXAMINATION: The patient is alert, oriented x3, not in apparent distress. Blood pressure 132/88. Heart rate of 88. Weight is 237. BMI is 35. HEAD: Conjunctivae are not pale or jaundiced. Oral mucosa is moist. NECK: Without JVD. JVP is normal. Carotid pulses are palpable bilaterally. There are no carotid bruits. LUNGS: Clear to auscultation. HEART: Distant, regular. There is no pathologic murmur, rub or gallop. PMI is not displaced. ABDOMEN: Soft and nontender. EXTREMITIES: Without edema. LABS: Platelet count of 171 from May 01, 2011. Hemoglobin A1c of 10.6 from June 2011. Lipids from June 04, 2011: Cholesterol 204, triglycerides 593, HDL of 29, LDL of 115, AST 38, ALT of 69. The patient underwent a cardiac cath on April 30, 2011, which showed mild disease in the coronary tree, except RCA, which was 99% stenosis. His ejection fraction was about 39% on LV gram. His LV gram from May 14, 2011 showed 60% LVEF IMPRESSION: A 41-year-old male with issues of medication cost, myocardial infarction, bare-metal stent to the right coronary artery in April 2011. 1. Coronary artery disease. a. History of inferior myocardial infarction. b. One-vessel in April 2011, with a bare-metal stent to the right coronary artery. c. Preserved left ventricular function. 2. Dyslipidemia, on a combination of medications; cannot afford Lipitor and TriCor. 3. Hypertension. 4. Dyslipidemia. 5. Abnormal liver function tests. 6. Diabetes mellitus, poorly control in the past. 7. Tobacco use, in remission. RECOMMENDATIONS: 1. His main issue today is around medication cost. The patient has a bare- metal stent. He will check if generic Plavix is available; if it is not available, he can discontinue Plavix. Because of cost, he is going to be switched from fenofibrate 160 to gemfibrozil 600 mg twice a day and from Lipitor 80 to simvastatin 80 mg a day. 2. Lipids, CPK and liver function tests in about 3 months. 3. I told the patient to get in touch with my office if any significant myalgia. 4. Therapeutic lifestyle modifications including diet, exercise and weight control were discussed. The patient was congratulated on smoking cessation. Total time 25 minutes; counseling time 20 minutes about adjustments of medications, the goals of risk factor modifications and the benefit of achieving goals of risk factor modifications. CC: ROLANDO PERSAUD DO [address] [facility] [place] [place] [address] MKK:BREANNA C: CONFIRM #: [id number] documented in this encounter Plan of Treatment Not on filedocumented as of this encounter Visit Diagnoses Diagnosis Coronary atherosclerosis of unspecified type of vessel, [place] or graft (HRC) Coronary atherosclerosis of unspecified type of vessel, [place] or graft 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 Type II or unspecified type diabetes jasen litus without mention of complication, uncontrolled Nonspecific abnormal results of liver fu nction study S/P angioplasty with stent Postsurgical percutaneous transluminal c oronary angioplasty status MD, old (HRC) Old myocardial infarction History of PTCA Postsurgical percutaneous transluminal c oronary angioplasty status Morbid obesity (HRC) Morbid obesity documented in this encounter Care Teams Medical Insurance Verifier Relationship Specialty Start Date End Date Rolando Persaud DO PCP - General 12/23/10 05/16/12 [address] [facility] [place] [id number] documented as of this encounter
--- OUTSIDE RECORDS SUMMARY | 2022-02-12 12:14 | XMS_ITS | Encounter Summary ---
:1970 Author Organization [employer] Address [address] [place] [address] Care Team Providers Name Role Phone Lilian Persaud DO Primary Care Provider Reason for Visit Reason Comments UPDATE Encounter Details Date Type Department Care Team Description 08/27/2011 Telephone [facility] Lilian Persaud DO UPDATE [address] [address] [place] [address] [place] [address] [phone] (Wo rk) Social History Tobacco Use Types Packs/Day Years Used Date Smoking Tobacco: Never Assessed Sex Assigned at Date Recorded Not on file documented as of this encounter Nursing Notes Freya Hess - 08/31/2011 1:58 PM CDT Left vm for pt. informing him of note below regarding increasing his insulins to 76 units BID. Also noted that we would be seeing him tomorrow for his OV and at that time Dr. Persaud can discuss his blood sugar readings as well. Lilian Persaud DO - 08/31/2011 12:07 PM CDT Please have pt increase both insulins to 76 units BID. I will see him tomorrow as also discuss with him. I updated his med list Sarah Leon 08/27/2011 10:[address] Persaud for 08/30. pt says he was told to call and report his blood sugars since both of his insulins were increased to 75 units BID. the following numbers are morning (fasting), then after supper and then at bedtime: 08/19: 127, 141, 162. 08/20: 120, 142 and 163, 08/21: 155, 177, 192. 08/22: 107, 119, 140. 5/1: 110, 123, 141. 5/2: 114, 133, 154 08/25: 102, 123, 141. 08/26: 124. says he is feeling well. please call 08/30 to let him know if you have any further instructions or not Lizette Blas - 08/27/2011 10:25 AM CDT Patient is calling Dr. Persaud's nurse to give glucose results from this past week. Timur Leyva (Self) [phone] (H) y-vm documented in this encounter Plan of Treatment Not on filedocumented as of this encounter Visit Diagnoses Diagnosis Type II or unspecified type diabetes jasen litus without mention of complication, uncontrolled - Primary documented in this encounter Care Teams Stencil Inspector Relationship Specialty Start Date End Date Lilian Persaud DO PCP - General 12/23/10 05/16/12 [address] [id number] documented as of this encounter
--- OUTSIDE RECORDS SUMMARY | 2022-02-12 12:14 | XMS_ITS | Encounter Summary ---
:1970 Author Organization [employer] Address [address] [place] [address] Care Team Providers Name Role Phone Lilian Persaud DO Primary Care Provider Reason for Visit Reason Comments Diabetes WART Encounter Details Date Type Department Care Team Description 10/05/2011 Office Visit [facility] Lilian Persaud, DM w/o complication type II, uncontrolled (Primary Dx); Medicine DO Plantar wart; [address] [address] [facility] [address] Wart; [place] [address] [place], [place] Warts, genital; [phone] [id number] Skin lesion Social History Tobacco Use Types Packs/Day Years Used Date Smoking Tobacco: Never Assessed Sex Assigned at Date Recorded Not on file documented as of this encounter Last Filed Vital Signs Vital Sign Reading Time Taken Comments Blood Pressure 120/74 10/05/2011 1:39 PM CDT Pulse 100 10/05/2011 1:03 PM CDT Temperature - - Respiratory Rate - - Oxygen Saturation - - Inhaled Oxygen Concentration - - Weight 107.5 kg (237 lb) 10/05/2011 1:02 PM CDT Height - - Body Mass Index 34.5 09/16/2011 2:40 PM CDT documented in this encounter Progress Notes Lilian Persaud DO - 10/19/2011 11:09 AM CDT SUBJECTIVE: Chief Complaint Patient presents with ??? Diabetes follow up ??? Verrucous Vulgaris multiple History of present illness: 41 y.o. male presents for wart treatment and diabetes. 3 patient last had warts treated on September 01, 2011, he was not able to make his followup appointment due to car trouble. Patient says the warts blistered and resolved nicely. No infection. 2 of the warts on his left wrist are done, one is slightly larger and size, wart on left great toe treated with cryotherapy, did well. Still there. No OTC home treatments. Pt has been keeping warts clean and covered. Pt would like treatment with cryotherapy again. Patient has a new lesion that resembles a wart on the shaft of his penis. He has a history of warts on his penis in the past that was treated and resolved. LAST EYE EXAM: July 2011, NORMAL PER PATIENT. Patient was not able to afford some of his medications. He did stop Plavix since the generic was still too expensive however he has been on it for 6 months for a bare-metal stent. Patient switched Lipitor to Zocor and fenofibrate to gemfibrozil. No muscle aches or side effects that he is aware of. Patient is on insulins, taking 76 units b.i.d. of old NPH and regular insulins. This is a formal for him. Patient pays villegas. Fasting blood sugars 120 to 130s, low 92. Bedtime blood sugar readings 127-151 average. Last hemoglobin A1c 10.6 in June 2011. No chest pain shortness of breath. Patient has not smoked any part of the cigarette for over 33 days, he uses NicoDerm patches. Patient has a lesion on his right upper 4 had been there over 6 months, no noticeable changes. He would like it checked. Lab Results Component Value Date/Time HGB A1C 9.9* 04/06/2011 13:53 Hemoglobin A1CRM 10.0* 11/25/2010 16:18 Lab Results Component Value Date/Time Cholesterol 204* 06/04/2011 13:02 HDL Cholesterol 29* 06/04/2011 13:02 Triglycerides 593* 06/04/2011 13:02 LDL Direct 115 06/04/2011 13:02 LDL Calculated 173* 04/06/2011 13:53 Past Medical History Diagnosis Date ??? Tobacco [...] of positives in HPI. OBJECTIVE: Filed Vitals: 10/05/11 1302 10/05/11 1303 10/05/11 1339 BP: 125/90 127/92 120/74 Pulse: 100 100 Weight: 237 lb (107.502 kg) General: Patient alert, in NAD. Cardiovascular: Regular rate and rhythm without murmurs rubs or gallops. Respiratory: Normal respiratory effort. Lungs are clear with good breath sounds. Skin: 1 warty verrucous papules on thenar left wrist at 3 mm round, raised, pink colored with mosaicpattern. Residual hyperpigmentation and erythema of other warts treated on the left wrist, with residual central shininess. verrucous papules: left great toe plantar surface 4 mm round mosaic pattern lesion with overlying thickened callus. Shaft of penis along mid left side has approximately 3 mm raised verrucous papule on a stalk with rough texture. Right upper frontal for head region has a 7 mm x 3-4 mm light brown macular lesion without scaling, tenderness, bleeding, inflammation. Psychiatric: Alert & oriented with normal affect and insight, does not appear depressed or anxious. Timur was seen today for diabetes and verrucous vulgaris. Diagnoses and associated orders for this visit: Dm w/o complication type ii, uncontrolled Plantar wart - DESTRUCT BENIGN SKIN LESIONS UP TO 14 [id number] Wart - DESTRUCT BENIGN SKIN LESIONS UP TO 14 15057 Warts, genital - IN DESTR PENIS CHARLESN,ARTUR,SURG EXCIS Skin lesion Patient will followup with cardiology and do fasting blood work in 3 months. continue present dose of insulins therapies , patient says this is an affordable option for him. Discussed goal of therapy with fasting blood sugar 80-110. Check hemoglobin A1c in one month. Monitor Patient requested retreatment of warts today. Discussed alternatives. patient advised to use [id number] wart removal therapies between office visits. patient will followup in 3 weeks, sooner as needed. patient discharged in [...] repeated x 3. Band-Aid applied to lesion(s). Discussed cryotherapy vs excision vs medication treatment for genital wart. Pt would like excision. 0.2 mL lidocaine without epinephrine injected at the base of verrucous papule on the shaft of the left mid penis. Appropriate anesthesia obtained. Curved scissors used to excise wart at base. Scant bleeding treated with silver nitrate stick. Patient tolerated well. PLAN: Patient will use OTC remedies such as Dr Nelson's wart treatment and return if further treatment in 3weeks. Use OTC pain medications PRN per package [...] Primary Plantar wart Wart Viral warts, unspecified Warts, genital Condyloma acuminatum Skin lesion Unspecified disorder of skin and subcuta neous tissue documented in this encounter Care Teams Thermostat Mechanic Relationship Specialty Start Date End Date Lilian Persaud DO PCP - General 12/23/10 05/16/12 [address] [id number] documented as of this encounter
--- OUTSIDE RECORDS SUMMARY | 2022-02-12 12:14 | XMS_ITS | Encounter Summary ---
:1970 Author Organization [employer] Address [address] [place] [address] Care Team Providers Name Role Phone CoriLilian li Primary Care Provider Reason for Visit Reason Comments Refill Encounter Details Date Type Department Care Team Description 09/13/2011 Refill [facility] Stevenson Greene MD Refill [address] [facility] . [address] [place] [address] [place], [place] [address] (Wo rk) Social History Tobacco Use Types Packs/Day Years Used Date Smoking Tobacco: Never Assessed Sex Assigned at Date Recorded Not on file documented as of this encounter Nursing Notes Eliana Kumar RN - 09/14/2011 4:00 PM CDT Patient informed and now states he can not afford his Tricor which is 160 dollars a month and his Plavix 300 dollars . He is on social security and can not afford most of his meds. He said he has triedlooking into medication assistance but has had no luck . He does have an appt. this here with you FYI . He has some Lipitor left and will finish those first . Eliana Kumar RN - 09/14/2011 9:31 AM CDT Message left for pt. to call me back. Rx faxed and lab orders entered. Stevenson Greene MD - 09/13/2011 9:57 PM CDT He should take tricor 160 mg and simv 80 mg. Lipids, CPK, AST, glucose in 3 months. Eliana Kumar RN - 09/13/2011 4:17 PM CDT Pt. stating Lipitor 80 mg and Crestor 40mg would cost him 80 dollars a month and he can not afford that . ( he states he is in the donut hole for the rest of this year for med coverage ) Ok to fax rxfor simvastatin 80mg ? And when should he have labs repeated ? documented in this encounter Plan of Treatment Not on filedocumented as of this encounter Visit Diagnoses Diagnosis Mixed hyperlipidemia (HRC) Mixed hyperlipidemia documented in this encounter Care Teams Seat Cover Installer Relationship Specialty Start Date End Date Lilian Persaud DO PCP - General 12/23/10 05/16/12 [address] [id number] documented as of this encounter
--- OUTSIDE RECORDS SUMMARY | 2022-02-12 12:14 | XMS_ITS | Encounter Summary ---
:1970 Author Organization [employer] Address [address] [address] Care Team Providers Name Role Phone Cori, Lilian Luther DO Primary Care Provider Encounter Details Date Type Department Care Team Description 11/10/2011 Hospital Encounter Heart & Vascular Chest pain, unspecified; [facility] athrscl-u ns vessel Cardiology [address] [facility] [place] [address] Social History Tobacco Use Types Packs/Day Years Used Date Smoking Tobacco: Never Assessed Sex Assigned at Date Recorded Not on file documented as of this encounter Medications at Time of Discharge Medication Sig Dispensed Refills Start End Date Date aspirin 81 MG chewable TAKE 1 TABLET BY MOUTH 100 tablet 1 0 tablet DAILY . 2 carvedilol (aka COREG) Take 1 tablet by mouth 2 60 tablet 11 07/25/19 tablet times daily (with 2 13 meals). insulin isophane (AKA Inject 76 Units 10 mL 5 05/17/19 NOVOLIN NPH,HUMULIN N) subcutaneously 2 times 2 13 100 UNIT/ML daily (before meals). injectionIndications: breakfast and dinner Type II or unspecified type diabetes mellitus without mention of complication, uncontrolled insulin regular (HUMULIN Inject 76 Units 10 mL 5 05/17/19 R) 100 UNIT/ML subcutaneously 2 times 2 13 injectionIndications: daily (before meals). Type II or unspecified breakfast and dinner type diabetes mellitus without mention of complication, uncontrolled lisinopril (AKA ZESTRIL) Take 1 tablet by mouth 90 tablet 1 05/04/19 5 MG tablet daily (every 24 hours). [address] 1 patch onto the 0 0 05/17/19 skin every 24 hours. 2 13 Remove after 16-24 hours. divalproex (DEPAKOTE) Take 2,000 mg by mouth [...] this encounter Progress Notes Helen Reynolds - 11/10/2011 11:59 PM CDTEncounter addended by: Helen Reynolds on: 01/10/2012 2:53 PM
Documentation filed: Result Entry documented in this encounter Plan of Treatment Not on filedocumented as of this encounter Procedures Procedure Name Priority Date/Time Associated Diagnosis Comme nts OUTREACH NUCLEAR Routine 11/10/2011 2:52 PM Chest pain, unspecified Results for this STUDY CDT Coronary procedure are i n atherosclerosis of the resul ts unspecified type of section. vessel, little river or graft (HRC) documented in this encounter Results Outreach Nuclear Study (11/10/2011 2:52 PM CDT) Specimen (Source) Anatomical Location Collection Method / Collectio n Time Received Time / Laterality Volume Narrative HP CONVERSION - 11/10/2011 2:52 PM CDT See results in APPS: [place]. Brittany Main MD [facility] Performing Organization Address City/State/ZIP Code Phon e Number HP CONVERSION documented in this encounter Visit Diagnoses Diagnosis Chest pain, unspecified Coronary atherosclerosis of unspecified type of vessel, little river or graft (HRC) Coronary atherosclerosis of unspecified type of vessel, little river or graft documented in this encounter Care Teams International Travel Consultant Relationship Specialty Start Date End Date Lilian Persaud DO PCP - General 12/23/10 05/16/12 [address] [id number] documented as of this encounter
--- OUTSIDE RECORDS SUMMARY | 2022-02-12 12:14 | XMS_ITS | Encounter Summary ---
:1970 Author Organization [employer] Address [address] [place] [address] Care Team Providers Name Role Phone Lilian Persaud DO Primary Care Provider Reason for Visit Reason Comments Information Encounter Details Date Type Department Care Team Description 08/06/2011 [facility] Persaud DO Information [address] [address] [place] [address] [place] [address] [phone] (Wo rk) Social History Tobacco Use Types Packs/Day Years Used Date Smoking Tobacco: Never Assessed Sex Assigned at Date Recorded Not on file documented as of this encounter Nursing Notes Freya Hess - 08/06/2011 1:21 PM CDT Spoke w/ pt. Informed him of note below regarding increase of 5 units in his new insulins. Pt. acknowledged and understood information. Also requested that he set up an appointment with an Senior Game Designer () for follow up on his diabetes and med management. Pt. stated he would do so. Also requested that he call next week with blood sugar readings again. Pt. stated he would do that as well. Lilian Persaud DO - 08/06/2011 1:14 PM CDT have pt increase each of the new insulins he is on 5 units, as indicated below. Dm w/o complication type ii, uncontrolled - insulin NPH (NOVOLIN N) 100 unit/mL Susp; Inject 70 Units subcutaneously 2 times daily (before meals). breakfast and dinner - insulin regular (NOVOLIN R) 100 unit/mL Soln; Inject 70 Units subcutaneously 2 times daily (beforemeals). breakfast and dinner Please encourage him to see slip box changer for follow up and med management. Call next week with blood sugar readings like he did today. Thanks. Jud Curry RN - 08/06/2011 12:31 PM CDT BS update 07/30: 180 fasting/am; 210 after dinner; 243 bedtime 07/31: 210 fasting; 242 after dinner; 264 bedtime 08/01: 178 fasting; 199 after dinner; 222 bedtime 08/02: 182 fasting; 217 after dinner; 242 bedtime 08/03: 187 fasting; 212 after dinner; 244 bedtime 08/04: 156 fasting; 179 after dinner; 210 bedtime Today 153 fasting Pt states he has lost a little weight and has been feeling well. Seen 05/26/11 Joelle Grove - 08/06/2011 12:25 PM CDT Non -Symptom Message from Front Line Primary Care Provider: Lilian Persaud DO Message: Patient calling in with blood sugar readings. documented in this encounter Plan of Treatment Not on filedocumented as of this encounter Visit Diagnoses Diagnosis Type II or unspecified type diabetes jasen litus without mention of complication, uncontrolled - Primary documented in this encounter Care Teams Principal Consultant Relationship Specialty Start Date End Date Lilian Persaud DO PCP - General 12/23/10 05/16/12 [address] [id number] documented as of this encounter
--- OUTSIDE RECORDS SUMMARY | 2022-02-12 12:15 | XMS_ITS | Encounter Summary ---
:1970 Author Organization [employer] Address [address] [place] [address] Care Team Providers Name Role Phone Lilian Persaud DO Primary Care Provider Encounter Details Date Type Department Care Team Description 06/04/2011 Lab Visit [place] [facility] Other disorders of lipoid [address] metabolism [place], [place] [id number] Social History Tobacco Use Types Packs/Day Years Used Date Smoking Tobacco: Never Assessed Sex Assigned at Date Recorded Not on file documented as of this encounter Plan of Treatment Not on filedocumented as of this encounter Procedures Procedure Name Priority Date/Time Associated Diagnosis Comme nts LIPID PANEL AND Routine 06/04/2011 1:02 PM Other disorders of Results for this DIRECT LDL(IF BOILER COVERER HELPER lipoid metabolism procedure are in NEEDED) ([facility]) the results section. LDL CHOLESTEROL, Routine 06/04/2011 1:02 PM Resul ts for this DIRECT MEASURED BOILER COVERER HELPER procedure ar e in the results section. ALT (SGPT) Routine 06/04/2011 1:02 PM Other disorders of Res ults for this BOILER COVERER HELPER lipoid metabolism procedure are in (HRC) the results section. AST Routine 06/04/2011 1:02 PM Other disorders of Res ults for this BOILER COVERER HELPER lipoid metabolism procedure are in (HRC) the results section. CK, TOTAL Routine 06/04/2011 1:02 PM Other disorders of Res ults for this BOILER COVERER HELPER lipoid metabolism procedure are in (HRC) the results section. documented in this encounter Results LDL Cholesterol, Direct Measured (06/04/2011 1:02 PM BOILER COVERER HELPER) athologist Signature LDL Direct 115 0 - 130 HP CONVERSION mg/dL Specimen Anatomical Collection Method Collection Time Receive d Time (Source) Location / / Volume Laterality 06/04/2011 1:02 PM 2 8:20 BOILER COVERER HELPER PM BOILER COVERER HELPER Narrative HP CONVERSION - 06/04/2011 9:21 PM BOILER COVERER HELPER Performed at [facility], [address] [place] [address] Lilian Persaud DO LAB_1 Performing Organization Address [facility] Phon e Number HP CONVERSION CK, Total (06/04/2011 1:02 PM BOILER COVERER HELPER) athologist Signature Creatine Kinase 60 0 - 225 HP CONVERSION U/L Specimen Anatomical Collection Method Collection Time Receive d Time (Source) Location / / Volume Laterality 06/04/2011 1:02 PM 2 8:20 BOILER COVERER HELPER PM BOILER COVERER HELPER Narrative HP CONVERSION - 06/04/2011 9:07 PM BOILER COVERER HELPER Performed at [facility], [address] [place] [address] Lilian Persaud DO LAB_1 Performing Organization Address [facility] Phon e Number HP CONVERSION AST (06/04/2011 1:02 PM BOILER COVERER HELPER) [facility] gist Method Time Signature Aspartate 38 0 - 45 HP CONVERSION Aminotransferase U/L Specimen Anatomical Collection Method Collection Time Receive d Time (Source) Location / / Volume Laterality 06/04/2011 1:02 PM 2 8:20 BOILER COVERER HELPER PM BOILER COVERER HELPER Narrative HP CONVERSION - 06/04/2011 9:07 PM BOILER COVERER HELPER Performed at [facility], [address] [place] [address] Lilian Persaud DO LAB_1 Performing Organization Address [facility] Phon e Number HP CONVERSION (ABNORMAL) ALT (SGPT) (06/04/2011 1:02 PM BOILER COVERER HELPER) [facility] gist Method Time Signature Alanine 69 (H) 4 - 55 HP CONVERSION Aminotransferase U/L Specimen Anatomical Collection Method Collection Time Receive d Time (Source) Location / / Volume Laterality 06/04/2011 1:02 PM 2 8:20 BOILER COVERER HELPER PM BOILER COVERER HELPER Narrative HP CONVERSION - 06/04/2011 9:07 PM BOILER COVERER HELPER Performed at [facility], [address] [place], [place] [id number] Lilian Persaud DO LAB_1 Performing Organization Address City/[facility] Phon e Number HP CONVERSION (ABNORMAL) Lipid Panel and Direct LDL(If Needed) (06/04/2011 1:02 PM BOILER COVERER HELPER) [facility] Method Time Signature Cholesterol 204 (H) 0 - 200 HP CONVERSION mg/dL Triglycerides 593 (H) 0 - 149 HP CONVERSION mg/dL HDL Cholesterol 29 (L) >39 mg/dL HP CONVERSION Cholesterol/HDL 7.0 HP CONVERSION Ratio Screen Length Of Fast 12.0 HP CONVERSION Specimen Anatomical Collection Method Collection Time Receive d Time (Source) Location / / Volume Laterality 06/04/2011 1:02 PM 2 8:20 BOILER COVERER HELPER PM BOILER COVERER HELPER Narrative HP CONVERSION - 06/04/2011 9:07 PM BOILER COVERER HELPER Performed at [facility], [address] [place] [address] Lilian Persaud DO LAB_1 Performing Organization Address [facility] Phon e Number HP CONVERSION documented in this encounter Visit Diagnoses Diagnosis 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
--- OUTSIDE RECORDS SUMMARY | 2022-02-12 12:15 | XMS_ITS | Encounter Summary ---
:1970 Author Organization [employer] Address [address] [place] [address] Care Team Providers Name Role Phone CoriLilian li Homa SAL Primary Care Provider Reason for Visit Reason Comments Coronary Artery Disease (CAD) Encounter Details Date Type Department Care Team Description 06/07/2011 Office Visit [facility] Vanessa Ram PA-C Cor athrscl-uns vessel; [address] Acute [place]; [address] [place], [place] Other disorders of lipoid me tabolism; [place] [id number] DM w/o complication type II, uncontrolle d [phone] (Wo rk) Social History Tobacco Use Types Packs/Day Years Used Date Smoking Tobacco: Never Assessed Sex Assigned at Date Recorded Not on file documented as of this encounter Last Filed Vital Signs Vital Sign Reading Time Taken Comments Blood Pressure 112/76 06/07/2011 10:38 AM EGG BREAKER Pulse 84 06/07/2011 10:38 AM EGG BREAKER Temperature - - Respiratory Rate - - Oxygen Saturation - - Inhaled Oxygen Concentration - - Weight 97.3 kg (214 lb 6.4 oz) 06/07/2011 10:38 AM EGG BREAKER Height 176.5 cm (5' 9.5) 06/07/2011 10:38 AM EGG BREAKER Body Mass Index 31.21 06/07/2011 10:38 AM EGG BREAKER documented in this encounter Patient Instructions Patient InstructionsVanessa Ram PA-C - 06/07/2011 11:23 AM CST 1. Increase Lipitor to 80 mg daily (2 current 40 mg tablets, or 1 new 80 mg tablet). 2. Recheck ast, ck, cholesterol labs. Please contact the lab at [phone] to schedule a lab appointment at [facility] after a 12 hour fast, end of June. They will have the lab orders when you get there, so you are not responsible to bring a lab slip. BREAKER documented in this encounter Progress Notes Vanessa Ram PA-C - 06/07/2011 11:51 AM CST Cardiology Clinic Follow up Visit CLINIC PROGRESS NOTE VISIT DATE: 06/07/2011 Patient: Timur Krishnamurthy SUBJECTIVE: This is a pleasant patient present today for a post-hospitalization/post-angiogram visit. The patient was admitted to [facility] on April 29 with chest pain. He had a bare metal stent placed in the right coronary artery. He came back to the hospital with chest pain on 05/14, and his angiogram was unchanged. Since that time he has been feeling well. He participated in cardiac rehab without chest pain, dyspnea, or pain at his right femoral angiogram site. He has been able to have complete smoking cessation with using the nicotine patch. The patient denies symptoms of chest pain, dyspnea, dizziness or lightheadedness since hospital discharge. No symptoms of pain, swelling, bleeding, or redness at the right groin vascular access site is reported. There is no complaint of numbness or tingling into the right leg, no flank pain or lower abdominal discomfort. PAST MEDICAL HISTORY:Patient Active Problem List Diagnoses Code ??? Tobacco Abuse 305.1 ??? Bipolar I Dis 296.7 ??? Dyslipidemia 272.8 ??? CAD 414.00 ??? Liver Function Tests Abnormal 794.8 ??? Pain Chest Wall 786.52 ??? Tinea Corporis 110.5 ??? Hypertriglyceridemia 272.1AL ??? DM w/o complication type II, uncontrolled 250.02 ??? Erectile dysfunction 607.84D ??? Acute [place] 410.90BQ ??? ASHD (arteriosclerotic heart disease) 414.00B ??? S/P angioplasty with stent V45.82V ??? Plantar wart 078.12 THERAPEUTIC LIFESTYLE CHANGES ASSESSMENT: Understanding and compliance with medications: Yes Tobacco use: Cessation for 1 month, uses the nicotine patch Activity level: 60 minutes of power walking 3 days a week. Eating Habits: Attempts low cholesterol low fat Stressors: stable. PHQ0-2 score for depression: zero. CURRENT MEDICATIONS: Reviewed and updated today in Last [facility]. Current outpatient prescriptions ordered prior to encounter Medication Sig Dispense Refill ??? aspirin 81 mg chewable tablet Take 1 tablet by mouth daily (every 24 hours). 100 tablet 0 ??? atorvastatin (LIPITOR) 40 mg tablet Take 1 tablet by mouth daily (every 24 hours). Indications: HYPERCHOLESTEROLEMIA 30 tablet 1 ??? carvedilol (COREG) 6.25 mg tablet Take 1 tablet by mouth 2 times daily (with meals). 60 tablet 11 ??? clopidogrel (PLAVIX) 75 mg tablet Take 1 tablet by mouth daily (every 24 hours). 42 tablet 0 ??? divalproex (DEPAKOTE) 500 mg EC tablet Take 2,000 mg by mouth DAILY MORNING LAB. Do not cut/crush/chew. Take with food. ??? Fenofibrate 160 mg tablet Take 160 mg by mouth daily (every 24 hours). Indications: HYPERTRIGLYCERIDEMIA 30 tablet 1 ??? insulin (BD INSULIN PEN NEEDLE UF SHORT) 31 X 5/16 Ndle Inject 1 Needle subcutaneously. 250.02Use new needle each injection, 4 daily 200 each prn ??? insulin aspart (NOVOLOG FLEXPEN) 100 unit/mL InPn Inject 10 Units subcutaneously 3 times daily (before meals). 250.02 take 5-15 min before meal Indications: DIABETES MELLITUS 9 mL 12 ??? insulin glargine (LANTUS SOLOSTAR) 100 unit/mL (3 mL) InPn Inject 40 Units subcutaneously nightly. 250.02 take at 10 p.m. daily Indications: DIABETES MELLITUS 15 mL 11 ??? lisinopril (PRINIVIL, ZESTRIL) 5 mg tablet Take 1 tablet by mouth daily (every 24 hours). Indications: HYPERTENSION 90 tablet 1 ??? metFORMIN (GLUCOPHAGE-XR) 500 mg 24 hr tablet Take 2 tablets by mouth nightly. Indications: TYPE2 DIABETES MELLITUS 60 tablet 1 ??? nicotine (NICODERM CQ) 14 mg/[address] 1 patch onto the skin every 24 hours. Remove after 16-24 hours. 28 patch 3 ??? nicotine (NICODERM CQ) 7 mg/[address] 1 patch onto the skin every 24 hours. Remove after 16-24hours. 28 patch 3 ??? omega-3 fatty acids-fish oil 340-1,000 mg capsule Take 2 g by mouth daily (every 24 hours). Indications: HYPERTRIGLYCERIDEMIA 100 capsule 3 ??? risperiDONE (RISPERDAL) 4 mg tablet Take 4 mg by mouth daily (every 24 hours). PHYSICAL EXAM: BP 112/76 Pulse 84 Ht 5' 9.5 (176.5 cm) Wt 214 lb 6.4 oz (17100 g) BMI 31.21 kg/m2 GENERAL: The patient is pleasant and in no apparent distress. LUNGS: Clear to auscultation bilaterally with good expansion. CARDIOVASCULAR: Rhythm is regular without ectopy. Normal S1 and S2. There was no murmur noted. No jugular vein distention. No carotid bruits appreciated. ABDOMEN: Soft, nontender with no masses or bruits. EXTREMITIES: Lower extremities reveal good pedal pulses that are equal bilaterally, no edema was noted. PERTINENT LABS: Lab Results Component Value Date/Time Cholesterol 204* 06/04/2011 13:02 HDL Cholesterol 29* 06/04/2011 13:02 Triglycerides 593* 06/04/2011 13:02 LDL Direct 115 06/04/2011 13:02 LDL Calculated 173* 04/06/2011 13:53 Lab Results Component Value Date/Time Troponin I <0.05 05/14/2011 11:38 Tropi At 90 Min <0.05 05/14/2011 12:28 Tropi At 6 Hrs <0.10 04/30/2011 19:53 PREVIOUS STUDIES: Coronary angiogram 04/29/2011: EF estimated was 39 %. - Left main: Normal. Left anterior descending artery and branches - Proximal LAD: Normal. - Mid LAD: Angiography showed mild atherosclerosis. - Distal LAD: Normal. Left circumflex artery and branches - Circumflex: Normal. Right coronary artery and branches - Proximal RCA: Normal. - Mid RCA: There was a 99 % stenosis. There was ELIZABETH grade 1 flow through the vessel (slow flow without perfusion). - Right PDA: There was a discrete 70 % stenosis. In a second lesion, there was a discrete 90 % stenosis. Interventions A 3.5 mm x 16 mm VeriFLEX Bare Metal bare-metal stent. Follow up angiogram 05/14/11 was unchanged, although the ejection fraction had improved to 60%. ASSESSMENT/PLAN: 1. Coronary artery disease. Status post coronary angiogram with 1 bare metal stent placed in the right coronary artery. I spoke with the patient at length about the angiogram using an anatomical drawing to explain specific findings. There are no apparent complications from the angiogram at the groin access site. We reviewed the importance of cardiac risk factor management such as diet, weight loss, exercise, cardiac rehab, lipid, glucose, and blood pressure control. a. Preserved left ventricular ejection fraction Initially 39% improved to 60% on his angiogram 05/14/11. b. Symptoms are stable on aspirin, Plavix, statin, and beta-cordell. The patient was advised to continue Plavix for at least one year, and cardiology should be contacted before it is discontinued 2. Hyperlipidemia. LDL goal is less than 70. He was advised to increase Lipitor to 80 mg and labs were ordered for the end of June to include ast, alt, cpk, and cholesterol fractionation after a 12 hour fast. 3. Blood pressure status: Controlled. 4. Glucose status: HgbA1C >9, followed by primary care, not currently controlled. 5. Tobacco abuse. He was congratulated on cessation for the last month and encouraged to decrease his nicotine patch to 14 mg in the next few weeks if his cravings decrease. 5. Follow-up with a stubber in 6 to 8 weeks to review his cholesterol and for hospital follow up. The patient was encouraged to contact the cardiology clinic sooner if any further questions or concerns. Total time spent with the patient was 40 minutes 30 minutes in counseling reviewing recent medication changes, possible side effects, recent imaging results, and answering questions. We reviewed the importance of modifying cardiac risk factors. 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
--- OUTSIDE RECORDS SUMMARY | 2022-02-12 12:15 | XMS_ITS | Encounter Summary ---
:1970 Author Organization [employer] Address [address] [place] [address] Care Team Providers Name Role Phone Lilian Persaud DO Primary Care Provider Reason for Visit Reason Comments UPDATE Encounter Details Date Type Department Care Team Description 06/04/2011 Telephone [facility] Lilian Persaud DO UPDATE [address] [address] [place] [address] [place] [address] [phone] (Wo rk) Social History Tobacco Use Types Packs/Day Years Used Date Smoking Tobacco: Never Assessed Sex Assigned at Date Recorded Not on file documented as of this encounter Nursing Notes Judy Pittman, RN - 06/04/2011 4:29 PM CST Called pt. Informed of insulin adjustments per Dr Persaud's instructions below. Advised pt to record blood sugar readings on Tuesday, Tuesday and Tuesday - then call first thing on Tuesday morning with update. Pt agreed. INCT POLICE LIEUTENANT Lilian Persaud DO - 06/04/2011 4:16 PM CST Have patient increase Lantus to 40 units (was 35 units) subcutaneous every HS. Also, increase Novolog to 10 units (was 9 units) TID with meals. Call Tuesday 2/13 am with BS readings. Further increase to be determined at that time. INCT POLICE LIEUTENANT Judy Pittman, JOSETTE - 06/04/2011 4:03 PM CST Pt calling. Saw PCP on 05/26/11 for diabetes follow up. Insulin doses were adjusted - taking Novolog 9units before meals tid and Lantus 35 units at bedtime. Reports blood sugar readings over the last few days: Friday 06/02: AM - 268 PM - 315 Night - 06/03: AM - 295 PM - 320 Night - 06/04: AM - 291 Feels ok. Metformin dose was decreased from 1,500 mg to 1,000 mg daily. Nausea and vomiting side effects have resolved. Concerned about how high blood sugar climbs throughout the day. Wondering if insulin needs to be adjusted again. INCT POLICE LIEUTENANT Gladys Granger - 06/04/2011 3:42 PM CST Non -Symptom Message from [facility] Primary Care Provider: Lilian Persaud DO Message: Pt is calling to leave his Blood Sugar levels from the last 3 days: Friday 06/02: AM-268 PM-315 Night- 06/03: AM -295 PM- 320 Night- 06/04: AM- 291 INCT POLICE LIEUTENANT documented in this encounter Plan of Treatment Not on filedocumented as of this encounter Visit Diagnoses Diagnosis Type II or unspecified type diabetes jasen litus without mention of complication, uncontrolled - Primary documented in this encounter Care Teams Filer Finish Relationship Specialty Start Date End Date Lilian Persaud DO PCP - General 12/23/10 05/16/12 [address] [id number] documented as of this encounter
--- OUTSIDE RECORDS SUMMARY | 2022-02-12 12:15 | XMS_ITS | Encounter Summary ---
:1970 Author Organization [employer] Address [address] [place] [address] Care Team Providers Name Role Phone Lilian Persaud DO Primary Care Provider Reason for Visit Reason Comments UPDATE Encounter Details Date Type Department Care Team Description 05/28/2011 Telephone [facility] Lilian Persaud DO UPDATE [address] [address] [place] [address] [place] [address] [phone] (Wo rk) Social History Tobacco Use Types Packs/Day Years Used Date Smoking Tobacco: Never Assessed Sex Assigned at Date Recorded Not on file documented as of this encounter Nursing Notes Jacqueline Herrera LPN - 05/28/2011 3:39 PM CST LM with info Y MOBILE EQUIPMENT OPERATOR Lilian Persaud DO - 05/28/2011 12:13 PM CST Please have pt increase Lantus 2 more units for a total of 32 units daily today (Tuesday), Tuesday. Then, increase to 34 units total dose Lantus daily on Tuesday, and Tuesday. Call Tuesday with BS readings and new dose Lantus to be determined then. Ysabel Edwards - 05/28/2011 11:42 AM CST Patient calling with bl sugars update. Pls advise. OV 05/26. Has made meds changes per plan. AM fastin/2 280, 05/28 298. Feels ok Pre-meal: 05/27 289 2 hr PP: 05/27 396 Y MOBILE EQUIPMENT OPERATOR Lizette Blas - 05/28/2011 11:32 AM CST Non -Symptom Message from [facility] Primary Care Provider: Lilian Persaud DO Message: Patient calling to give blood sugar results as requested. [phone] Y MOBILE EQUIPMENT OPERATOR documented in this encounter Plan of Treatment Not on filedocumented as of this encounter Visit Diagnoses Diagnosis Type II or unspecified type diabetes jasen litus without mention of complication, uncontrolled - Primary documented in this encounter Care Teams Silo Erector Relationship Specialty Start Date End Date Lilian Persaud DO PCP - General 12/23/10 05/16/12 [address] [id number] documented as of this encounter
--- OUTSIDE RECORDS SUMMARY | 2022-02-12 12:15 | XMS_ITS | Encounter Summary ---
:1970 Author Organization [employer] Address [address] [address] Care Team Providers Name Role Phone Rolando Loepz DO Primary Care Provider Reason for Referral Specialty Diagnoses / Procedures Referred By Contact [place] [address] [place] [address] Referral ID Status Reason Start Date Expiration Date Visits Requ ested Visits Authorized Reason for Visit Reason Comments Diabetes Encounter Details Date Type Department Care Team Description 07/06/2011 Initial Consult [facility] [address] Cec[address] Calhoun DM w/o complication Endocrinology MD Simi type II, uncontrolled [address] [place] [address] (Primary Dx) [facility] [place] [id number] Social History Tobacco Use Types Packs/Day Years Used Date Smoking Tobacco: Never Assessed Sex Assigned at Date Recorded Not on file documented as of this encounter Last Filed Vital Signs Vital Sign Reading Time Taken Comments Blood Pressure 116/70 07/06/2011 4:45 PM CDT Pulse 88 07/06/2011 4:45 PM CDT Temperature - - Respiratory Rate - - Oxygen Saturation - - Inhaled Oxygen Concentration - - Weight 100.1 kg (220 lb 9.6 oz) 07/06/2011 4:45 PM CDT Height - - Body Mass Index 32.11 06/07/2011 10:38 AM VEGETABLE CANNER documented in this encounter Progress Notes Ceci Calhoun MD - 07/06/2011 6:00 PM CDT Progress Notes signed by Ceci Calhoun MD at 07/23/11 [id number] Author: Ceci Calhoun MD Service: (none) Author Type: Physician Filed: 07/23/11 8828 Note Time: 07/06/11 1800 Status: Signed Hydraulic Governor Assembler: Ceci Calhoun MD (Physician) NAME: SHARLENE KRISHNAMURTHY MR#: [id number] CSN: [id number] AUTHENTICATING CLINICIAN: Ceci Calhoun MD CONFIRM #: [id number] LOC: 432 CLINIC PROGRESS NOTE DATE OF VISIT: 07/06/2011 : 1970 CHIEF COMPLAINT: The patient was seen in consultation at the request of Dr. Rolando Lopez for advice regarding uncontrolled type 2 diabetes mellitus. HISTORY OF PRESENT ILLNESS: Rustam is a 41-year-old male who was diagnosed with type 2 diabetes about a year and half ago at the age of 40. The patient has no known microvascular complications and will be having an eye exam tomorrow. The patient does have a history of cardiovascular disease and had a heart attack in April,. The patient was using oral medications only until March,. He has now been on insulin for the past 2-3 months. The patient has tried metformin or metformin XR on a few occasions and has had fairly severe abdominal pain, nausea and vomiting. He finally discontinued it just 2 days ago. The patient is now taking Lantus 80 units at bedtime, NovoLog 30 units before each meal. He does not miss doses. He properly primes his pens. He learned to count carbohydrates through the diabetes educators and is limiting his breakfast to 3-4 choices, limiting lunch and dinner to 4-5 choices. He does not regularly snack. The patient brought in written records. Fasting blood sugars are 200 or higher, 2 hours after lunch 2-300+, 2 hours after dinner 300+. The patient does not test before lunch and dinner. No hypoglycemia. The A1c was 10.6% today. The patient has completed cardiac rehab. He is typically walking 2 miles three times per week in the early afternoon without limitations. No recent weight change. The patient has been on stable dose of risperidone 4 mg daily for a number of years. He quit smoking tobacco in the last 2-3 months. PAST MEDICAL HISTORY: Type 2 diabetes, dyslipidemia, coronary artery disease with history of heart attack, history of smoking with recent quit, bipolar disorder, erectile dysfunction. CURRENT MEDICATIONS: Include Lantus, NovoLog, metformin XR was just discontinued, lisinopril 5 mg, Lipitor 80 mg, aspirin, carvedilol 6.25 mg b.i.d., Plavix 75 mg, Depakote 2000 mg daily, fenofibrate 160 mg, fish oil 2 tablets b.i.d., Risperdal 4 mg daily. FAMILY HISTORY: Is remarkable for a sister with type 2 diabetes on insulin. Father with type 2 diabetes on insulin. Also hypertension, hyperlipidemia and heart attack at the age of 33. Mother is healthy. No thyroid disease. SOCIAL HISTORY: The patient is . He has 3 grown stepchildren. He is unemployed. He quit smoking tobacco and does not drink alcohol. REVIEW OF SYSTEMS: No recent weight change. No polydipsia. No polyuria. No chest pains. No shortness of breath, stomach problems seem to have resolved off metformin. The patient notes occasional numbness in the right foot and this may have been present since childhood. The remainder of a complete review of systems is negative. PHYSICAL EXAM: VITAL SIGNS: Blood pressure 116/70, pulse 88, weight 220.6 pounds. GENERAL APPEARANCE: 41-year-old male in no apparent distress. PSYCHIATRIC: Alert, normal mood and affect. SKIN: Normal to inspection and palpation. No acanthosis nigricans. No violaceous striae. HEENT: Eyes: Normal, pupils and extraocular movements. ENT: Normal nose and mouth. NECK: The trachea is midline. No thyromegaly. No supraclavicular fullness. RESPIRATORY: Lungs are clear to auscultation bilaterally with good effort. CV: S1, S2 with regular rate and rhythm. No murmurs. ABDOMEN: Soft, nondistended, nontender. The patient is limiting his insulin injection sites to a small area on the left side. MUSCULOSKELETAL: Normal gait. No lower extremity edema, 2+ pedal pulses. Feet are in good repair. NEUROLOGIC: Bilateral lower extremity sensation is intact to 10 gram monofilament. ASSESSMENT: 1. Uncontrolled type 2 diabetes mellitus with significant insulin resistance. 2. Dyslipidemia with significant hypertriglyceridemia. 3. Recent heart attack. PLAN: 1. The patient appears to have significant insulin resistance. Risperidone is certainly contributing. Unfortunately he has not been able to tolerate metformin. I would not recommend the use of Actos due to risk for weight gain. GLP-1 agonists are relatively contraindicated with significant hypertriglyceridemia, due to risk for pancreatitis. For now continue insulin only. 2. Increase the dose of Lantus to 90 units at bedtime. If most fasting blood sugars remain above 150 after a week the patient will increase the dose to 100 units. 3. Increase the dose of NovoLog to 40 units per meal. If after 1 week most 2-hour post meal levels remain above 180 increase the dose to 50 units per meal. 4. The patient will continue to test before breakfast and 2 hours after lunch and dinner. We reviewed ideal targets. 5. The patient was encouraged to increase exercise as tolerated. 6. The patient reports that this clinic is not very convenient. He may followup as needed, otherwise the patient should follow up in Primary Care as well as with the diabetes educators. The patient will plan to call with his glucose levels in 2 weeks for further adjustment as needed. 7. The patient should also have a sliding scale implemented in the near future. I would suggest approximately 8 units per 50 above 150. CC: ROLANDO LOPEZ, [address] [place] [address] RMM:MEDQ C: CONFIRM #: [id number] documented in this encounter Plan of Treatment Not on filedocumented as of this encounter Procedures Procedure Name Priority Date/Time Associated Diagnosis Comme nts POCT GLYCOSYLATED Routine 07/06/2011 4:50 PM Type II or Resu lts for this HEMOGLOBIN (HGB A1C) CDT unspecified type pro cedure are in diabetes mellitus the result s without mention of section. complication, uncontrolled (HRC) documented in this encounter Results (ABNORMAL) POCT GLYCOSYLATED HEMOGLOBIN (HGB A1C) (07/06/2011 4:50 PM CDT) [facility] Method Time Signature Hemoglobin A1C, 10.6 (A) 6.0 % HP CONVERSION POC Cartridge Lot# [id number] HP CONVERSION Specimen (Source) Anatomical Collection Method Collection Time Re ceived Time Location / / Volume Laterality 07/06/2011 4:50 PM CDT Ceci Calhoun MD PN POINT OF CARE TESTS Performing Organization Address City/State/ZIP Code Phon e Number HP CONVERSION documented in this encounter Visit Diagnoses Diagnosis Type II or unspecified type diabetes jasen litus without mention of complication, uncontrolled - Primary documented in this encounter Care Teams Woods Overseer Relationship Specialty Start Date End Date Rolando Lopez DO PCP - General 12/23/10 05/16/12 [address] [id number] documented as of this encounter
--- OUTSIDE RECORDS SUMMARY | 2022-02-12 12:15 | XMS_ITS | Encounter Summary ---
:1970 Author Organization [facility] Address [address] [place] [address] Care Team Providers Name Role Phone Lilian Persaud DO Primary Care Provider Reason for Visit Reason Comments RESULTS, TEST Encounter Details Date Type Department Care Team Description 06/08/2011 Telephone [facility] Lilian Persaud DO RESULTS, TEST [address] [facility] [address] [address] [place] [address] [place] [address] [phone] (Wo rk) Social History Tobacco Use Types Packs/Day Years Used Date Smoking Tobacco: Never Assessed Sex Assigned at Date Recorded Not on file documented as of this encounter Nursing Notes Jacqueline Herrera LPN - 06/08/2011 2:38 PM CST Talked to pt. no changes in diet. Insulin not and has not been in different temps. Denies alcohol use. Has had no changes. Informed of new orders. NICAL INSPECTOR Lilian Persaud DO - 06/08/2011 1:02 PM CST check with pt to make sure insulin is good and not been in extreme temperatures to make it inactive.Pt should be seeing improvement with increase in insulin levels. Any diet changes?? Pt should increase Novolog from 10 to 12 units TID with meals. Also increase Lantus from 40 to 45 units daily. Call with blood sugar readings as usual on Tuesday morning. NICAL INSPECTOR Ysabel Rosales - 06/08/2011 12:[address] Persaud to address. Patient calling back with blood sugar reading for past 3 days. Has been taking Lantus/Novolog insulin as instructed in note 06/04/11. Monday 06/05: fasting 269, pre-dinner 325, bedtime 379 Tuesday 06/06: fasting 345, pre-dinner 410 and bedtime 425. Wednesday 06/07: fasting 286, pre-dinner 432 and bedtime 450 Thursday 06/08: fasting 295. NICAL INSPECTOR Andie Adams - 06/08/2011 11:54 AM CST pt calling in his blood sugar test results NICAL INSPECTOR documented in this encounter Plan of Treatment Not on filedocumented as of this encounter Visit Diagnoses Diagnosis Type II or unspecified type diabetes jasen litus without mention of complication, uncontrolled - Primary documented in this encounter Care Teams Sales Training Representative Relationship Specialty Start Date End Date Lilian Persaud DO PCP - General 12/23/10 05/16/12 [address] [place] [place] [id number] documented as of this encounter
--- OUTSIDE RECORDS SUMMARY | 2022-02-12 12:15 | XMS_ITS | Encounter Summary ---
:1970 Author Organization [facility] Address [address] [place] [address] Care Team Providers Name Role Phone Lilian Persaud DO Primary Care Provider Reason for Visit Reason Comments RESULTS, TEST Encounter Details Date Type Department Care Team Description 06/18/2011 Telephone [facility] Lilian Persaud DO RESULTS, TEST [address] [facility] [address] [address] [place] [address] [place] [address] [phone] (Wo rk) Social History Tobacco Use Types Packs/Day Years Used Date Smoking Tobacco: Never Assessed Sex Assigned at Date Recorded Not on file documented as of this encounter Nursing Notes Jacqueline Herrera LPN - 06/18/2011 1:35 PM CST Pt. informed. WORKER Lilian Persaud DO - 06/18/2011 12:54 PM CST Increase Lantus from 60 units nightly to 65 units nightly. Increase NovoLog from 20 units t.i.d. with meals to 24 units t.i.d. with meals. Have patient call Tuesday with blood sugar readings. Please check to see the patient is aware of his earlier appointment with Dr. Calhoun with endocrine,who I have discussed his case with. WORKER Sarah Leon - 06/18/2011 12:45 PM CST calling to report his blood sugars as you had asked him to do. 06/15 am was 285, afternoon 310 and bedtime 355. 06/16 am298,afternoon 320, [id number], 06/17 am302, afternoon 322 and bedtime 370 and this morning it was 264. please call with plan WORKER Jo Cruz - 06/18/2011 12:35 PM CST Non -Symptom Message from Front Line Primary Care Provider: Lilian Persaud DO Message: Pt requesting his blood sugar test results. WORKER documented in this encounter Plan of Treatment Not on filedocumented as of this encounter Visit Diagnoses Diagnosis Type II or unspecified type diabetes jasen litus without mention of complication, uncontrolled - Primary documented in this encounter Care Teams Systems Accountant Relationship Specialty Start Date End Date Lilian Persaud DO PCP - General 12/23/10 05/16/12 [address] [place] [id number] documented as of this encounter
--- OUTSIDE RECORDS SUMMARY | 2022-02-12 12:15 | XMS_ITS | Encounter Summary ---
:1970 Author Organization [facility] Address [address] [place] [address] Care Team Providers Name Role Phone Lilian Persaud DO Primary Care Provider Reason for Visit Reason Comments Other Encounter Details Date Type Department Care Team Description 06/22/2011 Telephone [facility] Lilian Persaud, Other [address] [address] [place] [address] [place] [address] [phone] (Wo rk) Social History Tobacco Use Types Packs/Day Years Used Date Smoking Tobacco: Never Assessed Sex Assigned at Date Recorded Not on file documented as of this encounter Nursing Notes Freya Hess - 06/22/2011 1:25 PM CST Informed pt of Dr. Persaud's instructions per below. Pt. acknowledges and understands and stated that he will call Tuesday with his results. URCE SPECIALIST Lilian Persaud DO - 06/22/2011 1:00 PM CST Increase Lantus to 70 units subcutaneous nightly and Novolog to 26 units TID with meals. Call Tuesdaywith results. URCE SPECIALIST Tatyana Christian RN - 06/22/2011 12:44 PM CST Spoke with pt. Pt is calling Dr Persaud to update her with Blood glucose results from 06/18 through today with his adjusted doses of Lantus and Novolog (see phone note 06/18) 06/18 fasting am 264 4-5 pm( 2 hours after eating) 316 bedtime 354 06/19 290 320 352 06/20 228 245 320 06/21 219 310 345 06/[address] Persaud to review. URCE SPECIALIST Joellen Holm. - 06/22/2011 12:34 PM CST Non -Symptom Message from Front Line Primary Care Provider: Lilian Persaud DO Message: pt calling to give us the results of his diabetic blood sugar test would like to speak to nurse. URCE SPECIALIST documented in this encounter Plan of Treatment Not on filedocumented as of this encounter Visit Diagnoses Diagnosis Type II or unspecified type diabetes jasen litus without mention of complication, uncontrolled - Primary documented in this encounter Care Teams Collar Cutter Relationship Specialty Start Date End Date Lilian Persaud DO PCP - General 12/23/10 05/16/12 [address] [place] [id number] documented as of this encounter
--- OUTSIDE RECORDS SUMMARY | 2022-02-12 12:15 | XMS_ITS | Encounter Summary ---
:1970 Author Organization [facility] Address [address], [place] [address] Care Team Providers Name Role Phone Lilian Persaud DO Primary Care Provider Encounter Details Date Type Department Care Team Description 06/11/2011 Notes/Orders [facility] Eliana Kumar, [address] . [place] [address] Social History Tobacco Use Types Packs/Day Years Used Date Smoking Tobacco: Never Assessed Sex Assigned at Date Recorded Not on file documented as of this encounter Plan of Treatment Not on filedocumented as of this encounter Visit Diagnoses Not on filedocumented in this encounter Care Teams Catalytic Case Operator Relationship Specialty Start Date End Date Lilian Persaud DO PCP - General 12/23/10 05/16/12 [address] [place] [place] [id number] documented as of this encounter
--- OUTSIDE RECORDS SUMMARY | 2022-02-12 12:15 | XMS_ITS | Encounter Summary ---
:1970 Author Organization [facility] Address [address] [place] [address] Care Team Providers Name Role Phone Lilian Persaud DO Primary Care Provider Reason for Visit Reason Comments Appt. Work In Request Encounter Details Date Type Department Care Team Description 05/20/2011 Telephone [facility] Lilian Persaud, Appt. W ork In Request Medicine DO [address] [facility] . [address] [place] [address] [place] [address] [phone] (Wo rk) Social History Tobacco Use Types Packs/Day Years Used Date Smoking Tobacco: Never Assessed Sex Assigned at Date Recorded Not on file documented as of this encounter Nursing Notes Lilian Persaud DO - 05/21/2011 9:51 AM CST Received a call from Lori to my nurse, referral not necessary. Pt has appt today at 11 am. Nurse Tim ENRIQUE. Marci Craig LPN - 05/21/2011 9:18 AM CST Nurse GORDO for pt to contact scheduling and make an appt to see Lilian Persaud next week for follow up.He is also to contact the [facility] and discuss his present issues with his diabetes and concerns about medications. LM for Pt to go to urgent care if his symptoms continue or worsen.[facility] was contacted and Lori is requesting referral for [facility] from Karo Persaud venkat. Please enter referral, then forward message forwarded to [facility] nursing venkat. STANT PRODUCER Lilian Persaud DO - 05/21/2011 8:51 AM CST Unable to do apwi today, please schedule for next week. Pt has seen [facility], please forward note and have pt discuss changing insulin with them in meantime. STANT PRODUCER Maximilian Ag - 05/20/2011 8:17 AM CST Patient calling requesting work-in to discuss diabetic medications Asymptomatic but blood sugars have been running 250-300 while on Novolog Also taking Metformin XR Afebrile No vomiting ,dizziness,blurred vision Declined appt offered today Aware clincian will address 05/21 Call [phone] STANT PRODUCER Wendy Montgomery - 05/20/2011 7:24 AM CST Front Line Sx Call Primary Ornamental Metal Worker: Lilian Persaud DO Reason for call/symptom: Pt is requesting to be worked in [place]. Tuesday05/21/11 with Noni Persaud re: Bloodsugar concerns and cholesterol med ck . Would like to discuss adjusting his diab meds . Pt just requested also to make a future appt . Pls call pt back STANT PRODUCER documented in this encounter Plan of Treatment Not on filedocumented as of this encounter Visit Diagnoses Not on filedocumented in this encounter Care Teams Senior Sas Developer Relationship Specialty Start Date End Date Lilian Persaud DO PCP - General 12/23/10 05/16/12 [address] [place] [id number] documented as of this encounter
--- OUTSIDE RECORDS SUMMARY | 2022-02-12 12:15 | XMS_ITS | Encounter Summary ---
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 [place], [place] Cor athrscl-uns vessel [facility] [address] [place] [id number] [phone] Social History Tobacco Use Types Packs/Day Years Used Date Smoking Tobacco: Never Assessed Sex Assigned at Date Recorded Not on file documented as of this encounter Last Filed Vital Signs Vital Sign Reading Time Taken Comments Blood Pressure 146/84 05/14/2011 11:00 AM SMALL OFFSET PRINTER Pulse 74 05/14/2011 11:00 AM SMALL OFFSET PRINTER Temperature 36.7 ??C (98.1 ??F) 05/14/2011 11:00 AM SMALL OFFSET PRINTER Respiratory Rate 18 05/14/2011 11:00 AM SMALL OFFSET PRINTER Oxygen Saturation 96% 05/14/2011 11:00 AM SMALL OFFSET PRINTER Inhaled Oxygen Concentration - - Weight 101.5 kg (223 lb 12.3 oz) 05/14/2011 11:00 AM SMALL OFFSET PRINTER Height - - Body Mass Index 32.57 01/22/2011 11:08 AM CDT documented in this encounter Medications at Time of Discharge Medication Sig Dispensed Refills Start End Date Date aspirin EC enteric Take 1 tablet by mouth 100 tablet 0 01/07 /201 04/20/20 coated tablet daily (every 24 hours). 2 12 atorvastatin (AKA Take 1 tablet by mouth 30 tablet 1 06/07/19 LIPITOR) 40 MG daily (every 24 hours). 1 12 tabletIndications: Other Indications: disorders of lipoid HYPERCHOLESTEROLEMIA metabolism (HRC), Type II or unspecified type diabetes mellitus without mention of complication, uncontrolled, Hypertriglyceridemia (HRC) carvedilol (aka COREG) Take 1 tablet by mouth 2 60 tablet 11 07/25/19 tablet times daily (with 2 13 meals). clopidogrel (aka PLAVIX) Take 1 tablet by mouth 42 tablet 0 06/11/19 tablet daily (every 24 hours). 2 1 2 fenofibrate (AKA Take 160 mg by mouth 30 tablet 1 06/09/19 LOFIBRA) 160 MG daily (every 24 hours). 1 12 tabletIndications: Other Indications: disorders of lipoid HYPERTRIGLYCERIDEMIA metabolism (HRC), Hypertriglyceridemia (HRC) insulin aspart Inject 20 Units 15 mL 6 05/21 protamine-aspart insulin subcutaneously 2 times 1 12 (AKA NOVOLOG 70/30) daily (before meals). (70-30) 100 UNIT/ML pen Indications: DIABETES injectionIndications: MELLITUS Type II or unspecified type diabetes mellitus without mention of complication, uncontrolled insulin pen needle 31G X Inject 1 Needle 100 each 0 05/21/19 8 MM (PEN NEEDLES subcutaneously 2 times 1 12 31GX5/16)Indications: daily for 360 days. Type II or unspecified type diabetes mellitus without mention of complication, uncontrolled lisinopril (AKA ZESTRIL) Take 1 tablet by mouth 90 tablet 1 07/30/19 5 MG tabletIndications: daily (every 24 hours). 1 12 DM (diabetes mellitus) Indications: type II uncontrolled HYPERTENSION with renal manifestation metFORMIN (AKA Take 2 tablets by mouth 60 tablet 1 04/06/20 1 06/09/19 GLUCOPHAGE XR) 500 MG 24 nightly. Indications: 1 12 hour release TYPE 2 DIABETES MELLITUS tabletIndications: Type II or unspecified type diabetes mellitus with renal manifestations, uncontrolled(250.42) (HRC), Type II or unspecified type diabetes mellitus without mention of complication, uncontrolled omega-3 fatty acids Take 2 g by mouth daily 100 capsule 3 06/10/19 (FISH OIL) 1000 MG (every 24 hours). 1 12 capsuleIndications: Indications: Hypertriglyceridemia HYPERTRIGLYCERIDEMIA (C) divalproex (DEPAKOTE) Take 2,000 mg by mouth 0 04/02/20 500 MG enteric coated DAILY MORNING LAB. Do 1 16 tablet not cut/crush/chew. Take with food. risperiDONE (RISPERDAL) Take 4 mg by mouth daily 0 08/05/19 4 MG tablet (every 24 hours). 1 18 documented as of this encounter Progress Notes Cordelia Ledesma RD, CDE - 05/14/2011 5:08 PM CST Diabetes Education Received order for diabetes education. Pt has been at angio this afternoon. Pt does have an appt scheduled for IDC 05/25/11. If pt discharges before Tuesday, will continue education at [facility]. Cordelia Ledesma RD, CDE Johnnie Ruggiero MD - 05/14/2011 3:39 PM CST Interventional Cardiology Procedure: Angiogram, LHC, LV gram Indication: Chest pain, recent PCI to RCA (for STEMI) Findings: Please see the full procedure report for details. Briefly, the left system is unchanged. Widely patent stent in the mid-RCA. The mid-RPDA has a 50- 60% stenosis, similar to the prior angiogram. Normal LV function (EF 60%; normal regional wall motion). Normal LVEDP. Assessment: 41 yo man -- 1. Chest pain. Resolved. 2. Severe 1-vessel CAD. Widely patent mid-RCA stent; unchanged RPDA stenosis. 3. Normal LV function (EF 60%; normal regional wall motion). Recommendations: Continue aggressive medical management re CAD. Johnnie Ruggiero M.D. Pager: [phone] Rolando Villegas RN - 05/14/2011 11:43 AM CST Preparing patient for coronary angiogram scheduled later today. Reports he had his daily ASA and Plavix already this morning. Declines to watch video, had an angio two weeks ago and remembers procedurewell. Verbalizes that he hopes to discharge home after angio today. Requesting nicotine patch, reports he quit smoking two weeks ago after DE and has been having good results with the patch. E-page sent to Dr. More. Patient ambulating in halls, denies chest pain or shortness of breath. Rolando Carter RN 11:43 AM 05/14/2011 Analy Morris RN - 05/14/2011 10:49 AM CST ADMIT O: Admitted patient via cart from Clinic to bed # [id number]. D: Patient is alert; See Admission Assessments. A: Discussed plan of care. See education record for admission education. Oriented to room. Call light in reach. Bed alarm: off R: Patient status: stable. Will monitor. documented in this encounter Consult Notes Fabian Gutierrez MD - 05/14/2011 1:43 PM CST Images from the original note were not included. Cardiology Consultation May 14, 2011 Requesting MD: Steve More MD Primary Care Provider: Rolando Lopez DO Primary Attending Anesthesiologist: Scar Isaacs MD History of Present Illness: Sharlene Krishnamurthy is a 41 y.o. man with known coronary artery disease, who I am asked to see in consultation at the request of Dr. More for evaluation of chest pain. The patient sustained an inferior non-ST segment elevation myocardial infarction (NSTEMI) on 04/29/2011. He received a single bare metal stent to the midportion of the right coronary artery. There was moderate distal disease that wasnot treated. He had an uncomplicated recovery and had started cardiac rehab. Yesterday, after walking about 2 miles, he had vague central chest discomfort, different than what he had with his myocardial infarction. It persisted for quite some time and resolved with morhpine in the [place] ER. He was admitted there, and transferred here this AM. Very little information was sent with him. ECGs are unremarkable there are no lab results but the patient is under the impression that everything checked out ok. He is pain free. He denies associated dyspnea, nausea, vomiting, diaphoresis. He has not had PND, orthopnea edema, syncope pre-syncope or palpitation. He has noted no change in functional capacity. Past Medical History: Patient Active Problem List Diagnoses Code ??? Tobacco Abuse 305.1 ??? Bipolar I Dis 296.7 ??? Dyslipidemia 272.8 ??? CAD 414.00 ??? Liver Function Tests Abnormal 794.8 ??? Pain Chest Wall 786.52 ??? Tinea Corporis 110.5 ??? Hypertriglyceridemia 272.1AL ??? DM w/o complication type II, uncontrolled 250.02 ??? Erectile dysfunction 607.84D ??? Acute DE 410.90BQ ??? ASHD (arteriosclerotic heart disease) 414.00B Past Surgical History has no past surgical history on file. Medications: ??? aspirin EC 325 mg Oral Daily ??? aspirin 325 mg Oral Once ??? atorvastatin 40 mg Oral QHS ??? carvedilol 6.25 mg Oral BID Meals ??? clopidogrel 75 mg Oral Daily ??? divalproex 2,000 mg Oral QAM ??? fenofibrate nanocrystallized 144 mg Oral Daily ??? lisinopril 5 mg Oral Daily ??? omega-3 fatty acids-fish oil 1 capsule Oral Daily ??? risperiDONE 4 mg Oral Daily Allergies and Intolerances: Allergies Allergen Reactions ??? Haloperidol Shock ??? Thiothixene Other (See Comments) Muscle spasm Family History: + for premature coronary artery disease. Social History: . 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 History Social History ??? Marital Status: Spouse Name: N/A Number of Children: N/A ??? Years of Education: N/A Occupational History ??? Not on file. Social History Main Topics ??? Smoking status: Current Everyday Smoker -- 0.5 packs/day for 25 years Types: Cigarettes ??? Smokeless tobacco: Not on file Comment: Smoking History Packs/day: ??? Alcohol Use: No Alcoholic Drinks/day: Amount:0; Freq:Never; ??? Drug Use: ??? Sexually Active: Other Topics Concern ??? Not on file Social History Narrative ??? No narrative on file Review of Systems: A complete review of systems was obtained on admission by Dr. More. I have no additions or corrections Physical Examination: OBJECTIVE: VITAL SIGNS: Temp: 36.7 ??C (98.1 ??F), Pulse: 74 , Resp: 18 , SpO2: 96 %, BP: 146/84 mmHg Current weight: Weight: 101.5 kg (223 lb 12.3 oz) Admit weight: Weight: 101.5 kg (223 lb 12.3 oz) GENERAL: Well developed, well nourished, in no distress. EYES: Conjunctivae and lids are normal; no xanthalasma or arcus senilius. ENT: good dentition. moist mucous membranes. No circumoral pallor or cyanosis. NECK: No palpable adenopathy or thyromegaly. RESPIRATORY: Normal respiratory effort. Lungs are clear to auscultation. No crackles or wheezes. CARDIOVASCULAR: No jugular venous distension. No carotid bruit. Regular rate and rhythm. There are no audible murmurs, rubs, or gallops. GASTROINTESTINAL: Normal bowel sounds; the abdomen is soft and not tender. MUSCULOSKELETAL: The chest wall is not tender; no kyphosis or scoliosis. EXTREMITIES: No clubbing, cyanosis or edema. Nails and nailbeds are normal. Distal pulses are full and symmetric. SKIN: Warm, well perfused without rashes. No ecchymoses. PSYCHIATRIC: Oriented and displays appropriate affect and judgement. I & O over last 24 hours: No intake or output data in the 24 hours ending 05/14/11 1214 Laboratory Results: Lab Results Component Value Date/Time Troponin I <0.05 05/14/2011 11:38 Lab Results Component Value Date/Time White Blood Cell Count 10.5 04/30/2011 13:50 Hemoglobin 12.2* 04/30/2011 13:50 Hematocrit 37.9* 04/30/2011 13:50 Mean Corpuscular Volume 87.7 04/30/2011 13:50 Platelet Count 171 05/01/2011 05:58 Lab Results Component Value Date/Time Lab Glucose 211* 04/30/2011 13:50 Bicarbonate 26 04/30/2011 13:50 Chloride 108 04/30/2011 13:50 Potassium 3.6 04/30/2011 13:50 Sodium 141 04/30/2011 13:50 Blood Urea Nitrogen 17 04/30/2011 13:50 Est GFR Am >60 04/30/2011 13:50 Est GFR Non-Afr Am >60 04/30/2011 13:50 Lab Results Component Value Date/Time Cholesterol 280* 04/06/2011 13:53 HDL Cholesterol 30* 04/06/2011 13:53 Triglycerides 384* 04/06/2011 13:53 LDL Calculated 173* 04/06/2011 13:53 Electrocardiography: EKG was reviewed by me independently and shows Normal sinus rhythm, normal axis and intervals, inferior Q waves, no ST segment or T wave abnormalities. Angiography: from 04/29/2011 outlined in HPI, images were reviewed by me independently. Assessment: Atypical chest pain. Coronary Artery Disease. Recent right coronary artery stent. Suboptimally treated hyperlipidemia Recommendations: 1. Chest pain. I have recommended invasive risk stratification with coronary angiography and possible percutaneous coronary revascularization if anatomy warrrants. Procedure and risks were discussed, including risks of bleeding, vascular injury, kidney failure, stroke, myocardial infarction or even . We discussed that options for treatment will depend on the results of the diagnostic study and might include percutaneous revascularization (angioplasty or stent implantation), surgical revascularization (coronary bypass surgery), medical therapy, or evaluation of non-cardiac causes of symptoms. In my opinion, the benefits outweigh the risks for this patient and he agrees to proceed. Acceptable candidate for conscious sedation. Would chose bare metal stent. I suspect the stent will look ok. 2. Hyperlipidemia. LDL above goal (<70) for secondary prevention. increase atorvastatin to 80 mg daily. Recommend low fat, low cholesterol diet, regular aerobic exercise if possible. Please feel free to contact me if any problems or questions arise regarding his cardiac status at any time. Thank You, Fabian Gutierrez MD Cardiology [facility] [place]. L OFFSET PRINTER documented in this encounter Miscellaneous Notes Medication History - Rakel, MD Elvis - 05/14/2011 6:00 PM CST INPATIENT MEDS Encounter Date: 05/14/11 nicotine (NICODERM CQ) 21 mg/24 hr patch Start Date:05/15/11, End Date:05/14/11, Frequency:DAILY *No Administrations Recorded nicotine patch removal Start Date:05/14/11, End Date:05/14/11, Frequency:AT BEDTIME *No Administrations Recorded 0.9% sodium chloride infusion Start Date:05/14/11, End Date:05/14/11, Frequency:CONTINUOUS *No Administrations Recorded lidocaine-epinephrine 1 %-1:100,000 injection 1-5 mL Start Date:05/14/11, End Date:05/14/11, Frequency:PRN *No Administrations Recorded 0.9% sodium chloride bolus 250 mL Start Date:05/14/11, End Date:05/14/11, Frequency:PRN *No Administrations Recorded atropine 0.1 mg/mL injection 0.5 mg Start Date:05/14/11, End Date:05/14/11, Frequency:PRN *No Administrations Recorded heparin (porcine) 2,000 unit/1,000 mL flush Start Date:05/14/11, End Date:05/14/11, Frequency:- *No Administrations Recorded nicotine (NICODERM CQ) 14 mg/24 hr patch Start Date:05/15/11, End Date:05/14/11, Frequency:DAILY *No Administrations Recorded nicotine (NICODERM CQ) 14 mg/24 hr patch Start Date:05/15/11, End Date:05/14/11, Frequency:DAILY *No Administrations Recorded nicotine patch removal Start Date:05/15/11, End Date:05/14/11, Frequency:AT BEDTIME *No Administrations Recorded acetaminophen (TYLENOL) tablet 325-650 mg Start Date:05/14/11, End Date:05/14/11, Frequency:EVERY 4 HOURS PRN *No Administrations Recorded magnesium hydroxide (MILK OF MAGNESIA) suspension 30 mL Start Date:05/14/11, End Date:05/14/11, Frequency:AT BEDTIME PRN *No Administrations Recorded aluminum-magnesium hydroxide-simethicone (MAALOX) suspension 15-30 mL Start Date:05/14/11, End Date:05/14/11, Frequency:EVERY 6 HOURS PRN *No Administrations Recorded temazepam (RESTORIL) capsule 15 mg Start Date:05/14/11, End Date:05/14/11, Frequency:AT BEDTIME PRN *No Administrations Recorded 0.9% sodium chloride latex free syringe 10 mL Start Date:05/14/11, End Date:05/14/11, Frequency:2 TIMES DAILY *No Administrations Recorded 0.9% sodium chloride latex free syringe 10 mL Start Date:05/14/11, End Date:05/14/11, Frequency:PRN *No Administrations Recorded aspirin tablet 325 mg Start Date:05/14/11, End Date:05/14/11, Frequency:ONCE *No Administrations Recorded aspirin EC (ECOTRIN) tablet 325 mg Start Date:05/15/11, End Date:05/14/11, Frequency:DAILY *No Administrations Recorded nitroGLYCERIN (NITROSTAT) SL tablet 0.4 mg Start Date:05/14/11, End Date:05/14/11, Frequency:PRN *No Administrations Recorded morphine injection 2-4 mg Start Date:05/14/11, End Date:05/14/11, Frequency:EVERY 5 MIN PRN *No Administrations Recorded atorvastatin (LIPITOR) tablet 40 mg Start Date:05/14/11, End Date:05/14/11, Frequency:AT BEDTIME *No Administrations Recorded carvedilol (COREG) tablet 6.25 mg Start Date:05/14/11, End Date:05/14/11, Frequency:2 TIMES DAILY WITH MEALS *No Administrations Recorded clopidogrel (PLAVIX) tablet 75 mg Start Date:05/14/11, End Date:05/14/11, Frequency:DAILY *No Administrations Recorded divalproex (DEPAKOTE) DR tablet 2,000 mg Start Date:05/15/11, End Date:05/14/11, Frequency:EVERY MORNING *No Administrations Recorded fenofibrate nanocrystallized (TRICOR) tablet 144 mg Start Date:05/14/11, End Date:05/14/11, Frequency:DAILY *No Administrations Recorded lisinopril (PRINIVIL, ZESTRIL) tablet 5 mg Start Date:05/14/11, End Date:05/14/11, Frequency:DAILY *No Administrations Recorded omega-3 fatty acids-fish oil 340-1,000 mg capsule 1 capsule Start Date:05/14/11, End Date:05/14/11, Frequency:DAILY *No Administrations Recorded risperiDONE (RisperDAL) tablet 4 mg Start Date:05/14/11, End Date:05/14/11, Frequency:DAILY *No Administrations Recorded 0.9% sodium chloride solution Start Date:05/14/11, End Date:05/14/11, Frequency:- *No Administrations Recorded 0.9% sodium chloride solution Start Date:05/14/11, End Date:-, Frequency:- *No Administrations Recorded fentaNYL (SUBLIMAZE) 50 mcg/mL injection Start Date:05/14/11, End Date:-, Frequency:- *No Administrations Recorded midazolam (VERSED) 1 mg/mL injection Start Date:05/14/11, End Date:-, Frequency:- *No Administrations Recorded nitroGLYCERIN 2mg in 5% dextrose 10 ml syringe Start Date:05/14/11, End Date:-, Frequency:- *No Administrations Recorded fentaNYL (SUBLIMAZE) 50 mcg/mL injection Start Date:05/14/11, End Date:-, Frequency:- *No Administrations Recorded midazolam (VERSED) 1 mg/mL injection Start Date:05/14/11, End Date:-, Frequency:- *No Administrations Recorded L OFFSET PRINTER documented in this encounter Plan of Treatment Not on filedocumented as of this encounter Procedures Procedure Name Priority Date/Time Associated Diagnosis Comme nts BEDSIDE GLUCOSE Routine 05/14/2011 1:04 PM Result s for this MONITOR POCT SMALL OFFSET PRINTER procedure are i n the results section. CARDIAC CATH Routine 05/14/2011 12:53 PM Results for this PROCEDURE SMALL [employer]SET PRINTER procedure are i n the results section. ECG 12 LEAD Routine 05/14/2011 12:48 PM Results for this INPATIENT SMALL OFFSET PRINTER procedure are i n the results section. XR CHEST 2 VIEWS STAT 05/14/2011 12:36 PM Resu lts for this SMALL OFFSET PRINTER procedure are i n the results section. CARD PROF ANDRES 90 STAT 05/14/2011 12:28 PM Re sults for this MIN SMALL OFFSET PRINTER procedure are i n the results section. CARDIAC MARKER STAT 05/14/2011 11:38 AM Result s for this PROFILE SMALL OFFSET PRINTER procedure are i n the results section. CK, TOTAL STAT 05/14/2011 11:38 AM Results for this SMALL OFFSET PRINTER procedure are i n the results section. documented in this encounter Results BEDSIDE GLUCOSE MONITOR (05/14/2011 1:04 PM SMALL OFFSET PRINTER) P athologist Signature Bedside Blood 290 mg/dL HP CONVERSION Glucose Test Specimen Anatomical Collection Method Collection Time Receive d Time (Source) Location / / Volume Laterality 05/14/2011 1:04 PM 2 1:25 SMALL OFFSET PRINTER PM SMALL OFFSET PRINTER Steve More MD LAB_1 Performing Organization Address City/State/ZIP Code Phon e Number HP CONVERSION Cardiac Cath Procedure (05/14/2011 12:53 PM SMALL OFFSET PRINTER) Specimen (Source) Anatomical Collection Method Collection Time Re ceived Time Location / / Volume Laterality 05/14/2011 12:53 PM SMALL OFFSET PRINTER Narrative [facility] - 05/14/2011 12:53 PM SMALL OFFSET PRINTER SHARLENE KRISHNAMURTHY ?? [id number] Cardiac Catheterization : 1970 Age: 41 years Gender: Male Study date: 05/14/2011 Test time: 14:22 - 14:40 Fluoro time: 1.9 min PPH Staff: ??Antoinette Olivera RN Diagnostic Attending Anesthesiologist: ??ARTIE RUGGIERO MD Armed Custom Protection Officer: ??Ceci Bowles Scrub: ??Julia Che RN Monitor: ??Evon Contreras CVT Monitor: ??Екатерина Khalil CVT X-ray Tech: ??Massiel Alcala RT Ordering Physician: ??FABIAN GUTIERREZ MD Referring Physician 1: ??ROLANDO LOPEZ DO History and indications Indications - ??Coronary artery disease: ischemic he art disease. - ??Cardiac: chest pain. Procedures performed * ??Left heart catheterization with vent riculography. * ??Left coronary angiography. * ??Right coronary angiography. Narrative The risks and alternatives of the proced ures and conscious sedation were explained to the patient a nd informed consent was obtained. The patient was brought to the mini lab operator and placed on the table. The planned punctur e sites were prepped and draped in the usual sterile fashion. Right femoral artery access. Left heart catheterization. A catheter w as advanced across the aortic valve into the ventricle. Ascencion triculography was performed. Left coronary artery angiography. The ve ssel was selectively cannulated and angiography was performed . Right coronary artery angiography. The v essel was selectively cannulated and angiography w as performed. Hemodynamic impressions Hemodynamic assessment demonstrates mild ly elevated LVEDP. Cardiovascular structures Ventriculography Subtle inferior hypokinesis is present. EF estimated was 60 %. Coronary angiography The coronary circulation is right domina nt. Left main coronary artery - ??Left main: Normal. Left anterior descending artery and bran ches - ??LAD: Mild plaque in the proximal and mid-segments. D1 is small. The vessel trifurcates in the m id-segment - there is mild disease in the LAD portion of th e trifurcation (20%). D2 is unremarkable. D3 is large ( similar in caliber to the LAD) and has a 30-40% stenosis a t the origin. Left circumflex artery and branches - ??Circumflex: Normal. 2 large OMs, bot h normal. The AV groove LCx is small. Right coronary artery and branches - ??RCA: Large, dominant vessel. The pro ximal vessel is normal. The previously placed 3.5x16mm V eriflex BMS (04/30/2011) in the mid-segment is widely patent. The distal RCA has plaque only. The RPDA is very la rge. The proximal vessel has mild plaque (<20%); there is a smooth, discrete, 50-60% stenosis in the mid-RPDA (best vi sualized in the AP cranial view). The RPLA system is large and normal. Interventions Procedure completion Timing: Test started at 14:22. Test conc luded at 14:40. Medications given: Fentanyl, 50 mcg, IV, at 14:12. Fentanyl, 50 mcg, IV, at 14:13. Fentanyl , 25 mcg, IV, at 14:21. Fentanyl, 50 mcg, IV, at 14:34. V ersed (1 mg), 1 mg, IV, at 14:11. Versed (1 mg), 1 mg, IV, a t 14:13. Versed (1 mg), 0.5 mg, IV, at 14:22. NTG (Intra co ronary), 200 mcg, at 14:29. Versed (1 mg), 1 mg, IV, at 14 :34. NTG (Intra coronary), 200 mcg, at 14:34. Contrast g iven: 86 ml OPTIRAY 320. Radiation exposure: Fluoroscopy lesa e: 1.9 min. Test time: 14:22 - 14:40 Fluoro time: 1.9 min Study conclusions Impressions 1. Severe 1-vessel CAD (RCA); no angiogr aphically significant stenosis. Widely patent sten t in the mid-RCA. 2. Normal LV function (EF 60%; subtle in ferior hypokinesis). Recommendations Continue aggressive medical management w ith regards to CAD. Prepared and signed by JOHNNIE RUGGIERO MD Signed 05/14/2011 17:06:24 PPH Staff: Antoinette Olivera RN Diagnostic Attending Anesthesiologist: JOHNNIE RUGGIERO MD Armed Custom Protection Officer: Ceci Bowles Scrub: Julia Che RN Monitor: Evon Contreras CVT Monitor: Екатерина Khalil CVT X-ray Tech: Massiel Alcala Ordering Physician: FABIAN GUTIERREZ MD Referring Physician 1: ROLANDO LOPEZ DO Hemodynamic Tables Pressures: ??Baseline Pressures: ??- HR: 82 Pressures: ??- Rhythm: Pressures: ??-- Aortic Pressure (S/D/M): 119/84/111 Pressures: ??-- Left Ventricle (s/edp): 105/25/-- Pressures: ??Post -LV Pressures: ??- HR: 83 Pressures: ??- Rhythm: Pressures: ??-- Aortic Pressure (S/D/M): 107/77/78 Pressures: ??-- Left Ventricle (s/edp): 121/36/-- Outputs: ??Baseline Outputs: ??-- CALCULATIONS[age] Outputs: ??-- CALCULATIONS: Body Surface Area: 2.18 Outputs: ??-- CALCULATIONS: Height in cm : 178.00 Outputs: ??-- CALCULATIONS: Sex: Male Outputs: ??-- CALCULATIONS: Weight in kg : 99.80 Fabian Gutierrez MD PN CARDIAC CATH ORDERABLES Performing Organization Address City/State/ZIP Code Phon e Number PN [facility] ECG 12 Lead Inpatient (05/14/2011 12:48 PM SMALL OFFSET PRINTER) P athologist Signature Ventricular Rate 71 BPM [facility] Atrial Rate 71 BPM [facility] P-R Interval 142 ms MUSE GHP QRS Duration 94 ms MUSE GHP QT 388 ms MUSE GHP QTc 421 ms MUSE GHP P [place] 28 degrees MUSE GHP R [place] 12 degrees MUSE GHP T [place] -2 degrees MUSE GHP Specimen (Source) Anatomical Collection Method Collection Time Re ceived Time Location / / Volume Laterality 05/14/2011 12:48 PM SMALL OFFSET PRINTER Narrative MUSE GHP - 07/31/2019 3:12 PM CDT Sinus rhythm 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 Narrative 05/14/2011 12:42 PM SMALL OFFSET PRINTER HISTORY: ??chest pain COMPARISON: ??None. FINDINGS: ??Two views were obtained. ??T he lungs and costophrenic angles are clear. ??Heart size and pulmo nary vascularity are within normal limits. ??There is no evidence of pneumothorax or pleural effusion. Procedure Note Maycol Johnson MD - 10/10/2015Formatti ng of this note might be different from the original. HISTORY: chest pain COMPARISON: None. FINDINGS: Two views were obtained. The l ungs and costophrenic angles are clear. Heart size and pulmona ry vascularity are within normal limits. There is no evidence of p neumothorax or pleural effusion. IMPRESSION IMPRESSION: Negative PA and left lateral chest. Steve More MD RAD GD CARD PROF TROPI 90 MIN (05/14/2011 12:28 PM SMALL OFFSET PRINTER) athologist Signature Tropi at 90 Min <0.05 0.00 - HP CONVERSION 0.04 ng/mL Specimen Anatomical Collection Method Collection Time Receive d Time (Source) Location / / Volume Laterality 05/14/2011 12:28 05/14/2011 PM SMALL OFFSET PRINTER 12:39 PM SMALL OFFSET PRINTER Steve More MD LAB_1 Performing Organization Address [facility] Phon e Number HP CONVERSION CK, Total (05/14/2011 11:38 AM SMALL OFFSET PRINTER) athologist Signature Creatine Kinase 85 0 - 225 HP CONVERSION U/L Specimen Anatomical Collection Method Collection Time Receive d Time (Source) Location / / Volume Laterality 05/14/2011 11:38 05/14/2011 AM SMALL OFFSET PRINTER 11:42 AM SMALL OFFSET PRINTER Steve More MD LAB_1 Performing Organization Address [facility] Phon e Number HP CONVERSION CARDIAC MARKER PROFILE (05/14/2011 11:38 AM SMALL OFFSET PRINTER) athologist Signature TROPONIN I <0.05 0.00 - 0.04 HP CONVERSION ng/mL Specimen Anatomical Collection Method Collection Time Receive d Time (Source) Location / / Volume Laterality 05/14/2011 11:38 05/14/2011 AM SMALL OFFSET PRINTER 11:42 AM SMALL OFFSET PRINTER Steve More MD LAB_1 Performing Organization Address 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
--- OUTSIDE RECORDS SUMMARY | 2022-02-12 12:15 | XMS_ITS | Encounter Summary ---
:1970 Author Organization [employer] Address [address] [place] [address] Care Team Providers Name Role Phone Lilian Persaud Primary Care Provider Reason for Visit Reason Comments Missed Appointment Encounter Details Date Type Department Care Team Description 05/19/2011 Telephone [facility] Vanessa Ram PA-C Missed Appointment [address] [facility] . [address] [place] [address] [place], [place] [phone] (Wo rk) Social History Tobacco Use Types Packs/Day Years Used Date Smoking Tobacco: Never Assessed Sex Assigned at Date Recorded Not on file documented as of this encounter Nursing Notes Eliana Kumar RN - 05/20/2011 10:54 AM CST Discussed with pt. he is taking all his meds. He also does have an appt. next week with his primary.I gave him my direct number and instructed him to call with any concerns or questions. Will keep both appt.'s right now that are booked until reviewed. Vanessa Mayo PA-C - 05/19/2011 5:00 PM CST Please confirm that he has been compliant with his medications, especially Plavix. Okay to wait until 06/07 if he is asymptomatic, sooner if there is an opening. He therefore can reschedule his appointment with Dr. Greene for the next week and reschedule it for the end of June. Thanks! FINISHER Aviva Bowles, RN - 05/19/2011 11:41 AM CST Patient missed post-hospitalization follow-up appointment with Vanessa Ram today. Called patient and left message to inquire whether patient would make 10:10am appointment. Patient called at 11:00am explaining that he is ill with the flu and therefore chose not to come to clinic today. Patient rescheduled appointment with Vanessa Ram for 06/07/11 and asks to be notified if there is a cancellation and/oropening for an earlier appointment. Patient reports feeling great despite flu illness and denies cardiac symptoms. Patient states he does not want to drive to [facility] for an earlier appointment with Vanessa Ram. He will call in the meantime if he experiences any issues. OK to wait until 06/07? Thanks. documented in this encounter Plan of Treatment Not on filedocumented as of this encounter Visit Diagnoses Not on filedocumented in this encounter Care Teams Cream Gatherer Relationship Specialty Start Date End Date Lilian Persaud DO PCP - General 12/23/10 05/16/12 [address] [place] [id number] documented as of this encounter
--- OUTSIDE RECORDS SUMMARY | 2022-02-12 12:15 | XMS_ITS | Encounter Summary ---
:1970 Author Organization [employer] Address [address] [place] [address] Care Team Providers Name Role Phone Lilian Persaud DO Primary Care Provider Reason for Visit Reason Comments LAB RESULTS Encounter Details Date Type Department Care Team Description 04/07/2011 Telephone [facility] Lilian Persaud DO LAB RESULTS [address] [facility] [address] [place] [address] [place] [address] [phone] (Wo rk) Social History Tobacco Use Types Packs/Day Years Used Date Smoking Tobacco: Never Assessed Sex Assigned at Date Recorded Not on file documented as of this encounter Nursing Notes Lilian Persaud DO - 04/07/2011 12:39 PM CST discussed lab results with pt. worsened HgbA1c and cholesterol results. Liver function tests stable.Patient is very reluctant to go to [facility]ology or [facility], he does not want to do injections. I advise patient that he is on multiple oral medications that have not improved his diabetes management, he will need injections to obtain better control of his diabetes. Patient also needs improved control of his lipids. Patient says he might go to the [facility], to discuss alternative therapies and visualize ease of use of insulin pens etc. patient agreed to allow me to make a referral and have them contact him. He says he is feeling under the weather and developed illness last night with chills and vomiting. Patient will come in if needed. Patient has declined endocrinology appointment in the past, but would benefit from endocrine input as well. I will address with patient again in the future, and hopefully he will go to the [facility]. Patient has a history of elevated liver function tests, however may have been related to psychotropic medications, patient is not certain. Elevated LDL with diabetes still present. I will start patienton statin, Lipitor, and recheck LFTs in 1 month. Pt should stop Gemfibrozil. Continue Tricor. Results for orders placed in visit on 04/06/11 LAB ALANINE AMINOTRANSFERASE Component Value Range ??? Alanine Aminotransferase 45 4-55 (U/L) LAB ASPARTATE AMINOTRANSFERASE Component Value Range ??? Aspartate Aminotransferase 34 0-45 (U/L) LAB CHOLESTEROL FRACTION-LDLD IF TRIG HI Component Value Range ??? Cholesterol 280 (*) 0-200 (mg/dL) ??? Triglycerides 384 (*) 0-149 (mg/dL) ? ? HDL Cholesterol 30 (*) >39 (mg/dL) ??? Cholesterol/HDL Ratio Screen 9.3 ??? LDL Calculated 173 (*) 19-130 (mg/dL) ??? Length Of Fast 17.0 LAB ELECTROLYTES (NA, K, CL, BICARB) Component Value Range ??? Sodium 132 (*) 137-147 (mEq/L) ??? Potassium 4.5 3.5-5.2 (mEq/L) ??? Chloride 99 98-110 (mEq/L) ??? Bicarbonate 25 23-33 (mmol/L) LAB GLUCOSE Component Value Range ??? Lab Glucose 236 (*) 60-100 (mg/dL) LAB HEMOGLOBIN A1C GLYCOSOLATED Component Value Range ??? HGB A1C 9.9 (*) 0.0-6.0 (%) LAB VENIPUNCTURE Component Value Range ??? 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
--- OUTSIDE RECORDS SUMMARY | 2022-02-12 12:15 | XMS_ITS | Encounter Summary ---
:1970 Author Organization [employer] Address [address] [place] [address] Care Team Providers Name Role Phone Lilian Persaud DO Primary Care Provider Reason for Visit Reason Comments Information Encounter Details Date Type Department Care Team Description 06/25/2011 Telephone [facility] Lilian Persaud DO Information [address] [address] [place] [address] [place] [address] [phone] (Wo rk) Social History Tobacco Use Types Packs/Day Years Used Date Smoking Tobacco: Never Assessed Sex Assigned at Date Recorded Not on file documented as of this encounter Nursing Notes Jacqueline Herrera LPN - 06/25/2011 3:26 PM CST LM with info. L LAYER Lilian Persaud DO - 06/25/2011 1:49 PM CST Looking back on notes, his sugars are finally starting to come down. Have pt increase Lantus to 75 units subcutaneous at hs. Have pt increase Novolog at 28 units tid with meals. Call Tuesday with BS readings. L LAYER Taytana Christian RN - 06/25/2011 11:11 AM CST Spoke with pt. Pt is calling to give Dr. Persaud updated blood glucose readings 06/22 282 am, 330 @4-5 pm, 370 @bedtime. 178 am, 268 @4-5pm and 341 @bedtime, 06/23 224 am, 279 @4-5 pm 331 @bedtime. Today 06/24 231 am. Please call pt back with plan. L LAYER Joellen Holm. - 06/25/2011 11:03 AM CST Non -Symptom Message from Front Line Primary Care Provider: Lilian Persaud DO Message: pt calling to give blood sugar test results to nurse. L LAYER documented in this encounter Plan of Treatment Not on filedocumented as of this encounter Visit Diagnoses Diagnosis Type II or unspecified type diabetes jasen litus without mention of complication, uncontrolled - Primary documented in this encounter Care Teams Machinist General Relationship Specialty Start Date End Date Lilian Persaud DO PCP - General 12/23/10 05/16/12 [address] [place] [id number] documented as of this encounter
--- OUTSIDE RECORDS SUMMARY | 2022-02-12 12:15 | XMS_ITS | Encounter Summary ---
:1970 Author Organization [employer] Address [address], [place] [address] Care Team Providers Name Role Phone Cori Lilina Luther DO Primary Care Provider Encounter Details Date Type Department Care Team Description 04/29/2011 Hospital Encounter Heart & [facility] MD Sim[facility] [address] [facility] [address] [place] [address] [phone] Social History Tobacco Use Types Packs/Day Years Used Date Smoking Tobacco: Never Assessed Sex Assigned at Date Recorded Not on file documented as of this encounter Medications at Time of Discharge Medication Sig Dispensed Refills Start End Date Date aspirin 81 MG tablet Take 1 tablet by mouth 0 05/01/19 daily (every 24 hours). 1 1 2 aspirin EC enteric Take 1 tablet by mouth 100 tablet 0 05/0108/13/19 coated tablet daily (every 24 hours). 2 12 aspirin tablet Take 1 tablet by mouth 90 tablet 12 05/01/19 daily (every 24 hours). 2 1 2 atorvastatin (AKA Take 1 tablet by [...] daily (every 24 hours). 2 1 2 clopidogrel (aka PLAVIX) Take 1 tablet by mouth 90 tablet 0 05/01/19 tablet daily (every 24 hours). 2 1 2 clopidogrel (aka PLAVIX) Take 2 tablets by mouth 2 tablet 0 05/01/19 tablet once for 1 dose. 2 12 fenofibrate (AKA Take 160 mg by mouth [...] hours). 1 12 capsuleIndications: Indications: Hypertriglyceridemia HYPERTRIGLYCERIDEMIA (HRC) divalproex (DEPAKOTE) Take 2,000 mg by [...] Name Priority Date/Time Associated Comments Diagnosis OUTREACH STRESS Routine 04/29/2011 4:28 Painful respiration Re sults for this ECHOCARDIOGRAM PM OIL FIRE SPECIALIST procedure are in the results section. documented in this encounter Results Outreach Stress Echocardioram (04/29/2011 4:28 PM OIL FIRE SPECIALIST) Specimen (Source) Anatomical Location Collection Method / Collectio n Time Received Time / Laterality Volume Narrative HP CONVERSION - 04/29/2011 4:28 PM OIL FIRE SPECIALIST See results in APPS: [employer] Brisa Negrete MD PN ECHO ORDERABLES Performing Organization Address City/State/ZIP Code Phon e Number HP CONVERSION documented in this encounter Visit Diagnoses Diagnosis Painful respiration documented in this encounter Care Teams Micropaleontologist Relationship Specialty Start Date End Date Lilian Persaud DO PCP - General 12/23/10 05/16/12 [address] [place] [address] documented as of this encounter
--- OUTSIDE RECORDS SUMMARY | 2022-02-12 12:15 | XMS_ITS | Encounter Summary ---
:1970 Author Organization [facility] Address [address] [address] Care Team Providers Name Role Phone Lilian Persaud DO Primary Care Provider Reason for Visit Reason Comments Appt. Needed Encounter Details Date Type Department Care Team Description 06/15/2011 Telephone [facility] [address] Rosal[address] Calhoun cca, MD Appt. Needed Endocrinology [address] [place] [place] [address] [place], [place] [address] [phone] Social History Tobacco Use Types Packs/Day Years Used Date Smoking Tobacco: Never Assessed Sex Assigned at Date Recorded Not on file documented as of this encounter Nursing Notes Ceci Calhoun MD - 06/15/2011 1:19 PM CST Please add pt to end of my clinic Tu07/05. Thanks documented in this encounter Plan of Treatment Not on filedocumented as of this encounter Visit Diagnoses Not on filedocumented in this encounter Care Teams Engineering Patternmaker Relationship Specialty Start Date End Date Lilian Persaud DO PCP - General 12/23/10 05/16/12 [address] [place] [id number] documented as of this encounter
--- OUTSIDE RECORDS SUMMARY | 2022-02-12 12:15 | XMS_ITS | Encounter Summary ---
:1970 Author [facility] Address [address] [address] Care Team Providers Name Role Phone Lilina Persaud DO Primary Care Provider Reason for Visit Reason Comments Refill Encounter Details Date Type Department Care Team Description 07/27/2011 Refill [facility] [address] Ros[address] Calhoun cca, MD Refill Endocrinology [address] [facility] [address] [place] [address] [place] [address] [phone] Social History Tobacco Use Types Packs/Day Years Used Date Smoking Tobacco: Never Assessed Sex Assigned at Date Recorded Not on file documented as of this encounter Nursing Notes Brooke Moraes, JOSETTE - 07/27/2011 9:26 AM CDT Refill done. documented in this encounter Plan of Treatment Not on filedocumented as of this encounter Visit Diagnoses Diagnosis Type II or unspecified type diabetes jasen litus without mention of complication, uncontrolled - Primary documented in this encounter Care Teams Sealing And Canceling Machine Operator Relationship Specialty Start Date End Date Lilian Persaud DO PCP - General 12/23/10 05/16/12 [address] [place] [address] documented as of this encounter
--- OUTSIDE RECORDS SUMMARY | 2022-02-12 12:15 | XMS_ITS | Encounter Summary ---
:1970 Author Organization [facility] Address [address] [place] [address] Care Team Providers Name Role Phone Rolando Lopez DO Primary Care Provider Reason for Visit Reason Comments Pharmacy Encounter Details Date Type Department Care Team Description 07/13/2011 Telephone [facility] Rolando Lopez, Pharmacy [address] [facility] . [address] [place] [address] [place] [address] [phone] (Wo rk) Social History Tobacco Use Types Packs/Day Years Used Date Smoking Tobacco: Never Assessed Sex Assigned at Date Recorded Not on file documented as of this encounter Nursing Notes Vicky Leyva, RN - 07/13/2011 4:10 PM CDT Prescription Refills Approved Prescriptions Disp Refills ??? insulin glargine (LANTUS SOLOSTAR) 100 unit/mL (3 mL) InPn 15 mL 11 Sig: Inject 90-100 Units subcutaneously nightly. 250.02 take at 10 p.m. daily Indications: DIABETESMELLITUS Authorizing Provider: ROLANDO LOPEZ Ordering User: VICKY LEYVA Resent to [employer] as ordered. IT Joellen Holm - 07/13/2011 4:05 PM CDT Non -Symptom Message from Front Line Primary Care Provider: Rolando Lopez DO Message: Pharmacy calling to get a new prescription of lantus sent over so that they can bill insurance due to increase in dosage. documented in this encounter Plan of Treatment Not on filedocumented as of this encounter Visit Diagnoses Diagnosis Type II or unspecified type diabetes jasen litus without mention of complication, uncontrolled - Primary documented in this encounter Care Teams Show Card Writer Relationship Specialty Start Date End Date Rolando Lopez DO PCP - General 12/23/10 05/16/12 [address] [place] [address] documented as of this encounter
--- OUTSIDE RECORDS SUMMARY | 2022-02-12 12:15 | XMS_ITS | Encounter Summary ---
:1970 Author Organization [employer] Address [address] [place] [address] Care Team Providers Name Role Phone Lilian Persaud DO Primary Care Provider Reason for Visit Reason Comments Diabetes Encounter Details Date Type Department Care Team Description 06/01/2011 Telephone [facility] Lilian Persaud DO Diabetes [address] [address] [place] [address] [place] [address] [phone] (Wo rk) Social History Tobacco Use Types Packs/Day Years Used Date Smoking Tobacco: Never Assessed Sex Assigned at Date Recorded Not on file documented as of this encounter Nursing Notes Jacqueline Herrera LPN - 06/01/2011 4:11 PM CST Pt informed. Having no symptoms of hypoglycemia TRONICS ENGINEERING TECHNOLOGIST Lilian Persaud DO - 06/01/2011 3:06 PM CST Have him increase Lantus to 35 units for 3 days, call Tuesday morning with Fasting Blood sugar readings TRONICS ENGINEERING TECHNOLOGIST Tatyana Christian RN - 06/01/2011 2:52 PM CST Spoke with pt. Pt is calling in his fasting am blood glucose readings to report to Dr. Persaud for possible Lantus adjustment. 24: 274 25: 284 26: 287 2: 284 No other sx to report. please call with plan. Call back number listed. To Dr. Persaud TRONICS ENGINEERING TECHNOLOGIST Ale Fountain - 06/01/2011 2:39 PM CST Calling in with his readings. TRONICS ENGINEERING TECHNOLOGIST documented in this encounter Plan of Treatment Not on filedocumented as of this encounter Visit Diagnoses Diagnosis Type II or unspecified type diabetes jasen litus without mention of complication, uncontrolled - Primary documented in this encounter Care Teams Ton Container Filler Relationship Specialty Start Date End Date Lilian Persaud DO PCP - General 12/23/10 05/16/12 [address] [place] [id number] documented as of this encounter
--- OUTSIDE RECORDS SUMMARY | 2022-02-12 12:15 | XMS_ITS | Encounter Summary ---
:1970 Author Organization [employer] Address [address] [place] [address] Care Team Providers Name Role Phone Lilian Persaud DO Primary Care Provider Reason for Visit Reason Comments Chest Pain Encounter Details Date Type Department Care Team Description 05/13/2011 Nurse Triage [facility] Lilian Persaud DO Chest Pain [address] [address] [place] [address] [place] [address] [phone] (Wo rk) Social History Tobacco Use Types Packs/Day Years Used Date Smoking Tobacco: Never Assessed Sex Assigned at Date Recorded Not on file documented as of this encounter Nursing Notes Griselda Ventura RN - 05/13/2011 7:59 PM CST patient calling telling me he recently had an MT and stint. Started with chest pain 5 minutes ago and feels a bit sob. Talking in full sentences and with him. Asked him to hang up and call 911. [place] they live one mile from [facility] and can drive him as it may be faster than 911. I told him ONLY if they left Immediately. will take him now. Protocol: CHEST [id number] Affirmative: [1] Chest pain lasting > 5 minutes AND [2] history of heart disease (e.g., heart attack, bypass surgery, angina, angioplasty) Disposition of Call 911 suggested. documented in this encounter Plan of Treatment Not on filedocumented as of this encounter Visit Diagnoses Not on filedocumented in this encounter Care Teams Pile Fabric Knitter Relationship Specialty Start Date End Date Lilian Persaud DO PCP - General 12/23/10 05/16/12 [address] [place] [address] documented as of this encounter
--- OUTSIDE RECORDS SUMMARY | 2022-02-12 12:15 | XMS_ITS | Encounter Summary ---
:1970 Author Organization [employer] Address [address], [place] [address] Care Team Providers Name Role Phone Rolando Lopez Primary Care Provider Encounter Details Date Type Department Care Team Description 04/29/2011 - [facility] 2S-Tanesha Lennon MD [address] [facility] [address] [place] [address] Other disorders of lipoid metabolism; 05/01/2011 Encounter ICU Geena Diaz MD [address] [place] [address] DM w/o complication type II, uncontrolle d; [address] Hypertriglyce ridemia; [place] DM (diabetes mellitus) type II uncontrolled with renal manifestation; [place], [place] DM renal m anif type II, uncontrolled; [address] [address]-uns vessel; [phone] Laboratory exam ination, unspecified; AMI NOS, unspec ified; Pure hyperglyce ridemia Social History Tobacco Use Types Packs/Day Years Used Date Smoking Tobacco: Never Assessed Sex Assigned at Date Recorded Not on file documented as of this encounter Last Filed Vital Signs Vital Sign Reading Time Taken Comments Blood Pressure 117/87 05/01/2011 8:00 AM [employer] Pulse 82 05/01/2011 8:00 AM [employer] Temperature 36.6 ??C (97.9 ??F) 05/01/2011 8:00 AM [employer] Respiratory Rate 16 05/01/2011 8:00 AM [employer] Oxygen Saturation 98% 05/01/2011 8:00 AM [employer] Inhaled Oxygen Concentration - - Weight 100.3 kg (221 lb 3.2 oz) 04/29/2011 8:03 PM [employer] Height - - Body Mass Index 32.2 01/22/2011 11:08 AM CDT documented in this encounter Discharge Summaries Tanesha Greene MD - 05/01/2011 3:21 PM CST Discharge Summaries signed by Tanesha Greene MD at 05/01/111818 Author: Tanesha Greene MD Service: (none) Author Type: Physician Filed: 05/01/111818 Note Time: 05/01/111520 Status: Signed Plant Propagator: Tanesha Greene MD (Physician) NAME: SHARLENE KRISHNAMURTHY MR#: [id number] CSN: [id number] AUTHENTICATING CLINICIAN: Tanesha Greene MD CONFIRM #: [id number] LOC: 1 HOSPITAL DISCHARGE SUMMARY DATE OF ADMISSION: 04/29/2011 DATE OF DISCHARGE: 05/01/2011 ADMITTING DIAGNOSES: 1. Inferior wall myocardial infarction. 2. Diabetes. 3. Hypertension. 4. Obesity. 5. Dyslipidemia. 6. Bipolar disorder. 7. Tobacco abuse. DISCHARGE DIAGNOSES: 1. Inferior wall myocardial infarction. 2. Diabetes. 3. Hypertension. 4. Obesity. 5. Dyslipidemia. 6. Bipolar disorder. 7. Tobacco abuse. HISTORY OF PRESENT ILLNESS: Mr. Krishnamurthy is a 41-year-old white male with past medical history significant for diabetes, dyslipidemia, hypertension and positive family history. He presented for evaluation of acute onset sharp chest pain. His initial cardiac enzymes were negative and EKG demonstrated inferior Q-waves. The patient was hospitalized at [facility] in November 2009. CT angiogram at that time demonstrated no flow-limiting disease in the right coronary. His exercise nuclear stress test was normal. 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 PAST MEDICAL HISTORY: As noted earlier, hypertension, diabetes, dyslipidemia, coronary artery disease, obesity, bipolar disorder and history of seizure disorder. PHYSICAL EXAM: VITAL SIGNS: Temperature 36.6, pulse 82, respirations 16, blood pressure 117/87, saturation 98%. Alert, oriented, pleasant, in no apparent distress. NECK: Supple. No JVD. CARDIAC: Regular rhythm and rate S1, S2. LUNGS: Clear. ABDOMEN: Soft, nontender. EXTREMITIES: No edema. Pedal pulses palpable bilaterally. LABORATORY DATA: WBC 10.5, hemoglobin 12.2, platelets 171, INR 1.1. Sodium 141, potassium 3.6, chloride 108, bicarb 26, BUN 17, creatinine 0.9. HOSPITAL COURSE: He was admitted to telemetry floor. His troponin was mildly elevated at 0.8. He denied recurrent chest pain. He had uneventful telemetry monitoring. He had CT angiogram which demonstrated calcified mid right coronary narrowing which appeared to be quite tight and worse than of his CT angiogram in about 1 year ago. He was seen by Dr. Taylor in cardiology consultation. He recommended coronary angiogram. It was performed on 04/30/2010 and demonstrated ejection fraction of 41% with end-diastolic pressure of 27 mmHg. The patient was found to have 99% RCA stenosis, which was stented. He also had 70% and 90% lesions involving his distal PDA. The patient was observed overnight. He was initially treated with heparin and later transitioned to aspirin and Plavix. Given decreased ejection fraction, Coreg will be added to his regimen. Lisinopril and statins will be continued. The patient will have a followup appointment with Cardiology in several weeks. Smoking cessation and dietary modifications discussed with the patient and he expressed good understanding. CONDITION/DISPOSITION: The patient was discharged to home. He will return to his preadmission living circumstances. DISCHARGE MEDICATIONS: Aspirin 81 mg daily, Plavix 75 mg daily, carvedilol 6.25 mg b.i.d., Lipitor 40 mg daily, Depakote 500 mg 4 tablets daily, fenofibrate 160 mg daily, NovoLog 70/30 20 units twice daily, lisinopril 5 mg daily, metformin 500 mg at bedtime, omega-3 fatty acids 2 g daily, Risperdal 4 mg daily. CLAIREK:MEDWendy C: CONFIRM #: [id number] [employer] documented in this encounter Medications at Time [...] hours). 1 12 capsuleIndications: Indications: Hypertriglyceridemia HYPERTRIGLYCERIDEMIA ([facility]) divalproex (DEPAKOTE) Take 2,000 mg by mouth 0 04/02/20 500 MG enteric coated DAILY MORNING LAB. Do 1 16 tablet not cut/crush/chew. Take with food. risperiDONE (RISPERDAL) Take 4 mg by mouth daily 0 08/05/19 4 MG tablet (every 24 hours). 1 18 documented as of this encounter Progress Notes Kacie Chicas RN - 05/01/2011 10:20 AM CST DISCHARGE O: Patient safely discharged to home. D: Patient is alert and oriented x 4. Pt up independently . Discharge criteria met. Vaccines addressed prior to discharge. A: Discharge instructions and medication reconciliation reviewed and given to patient. Prescriptionssent with patient. Belongings checklist reviewed with patient and belongs sent. Care plan issues addressed and education record updated. R: Patient verbalizes understanding of discharge instructions. Patient discharged by: ambulation with family. Kacie Matias RN 11:19 AM 05/01/2011 Marilu Hernandez PA-C - 05/01/2011 9:29 AM CST Cardiology Progress Note 05/01/2011 Patient: Sharlene Krishnamurthy, Attending: Tanesha Greene MD Admission date: 04/29/2011 Sharlene Krishnamurthy is a 41 y.o. male admitted yesterday with chest pain, acute inferior myocardial infarction. Status post coronary angiogram with bare-metal stent x 1 to mid RCA (99% occlusion) EF 41% with inferior hypokinesis. Patient denies chest pain, dyspnea, palpitations, no issues at right groin vascular access site. OBJECTIVE: Vitals from last 24 hours: BP Min: 73/20 Max: 127/73 Temp Av.9 ??F (36.6 ??C) Min: 97.5 ??F (36.4 ??C) Max: 98.2 ??F (36.8 ??C) Pulse Av.7 Min: 65 Max: 91 SpO2 Av.4 % Min: 95 % Max: 98 % Arterial Line BP Min: 123/73 Max: 123/73 TELE: normal sinus rhythm, rates in 70s. GENERAL: Alert and oriented in no apparent distress HEENT: unremarkable HEART: rhythm is regular, there is no murmur LUNGS: clear to auscultation ABDOMEN: soft, non-tender EXTREMITIES: skin is warm and dry, pulses are equal bilaterally, there is no edema RIGHT GROIN: the right groin vascular access site is clean and dry with minimal ecchymosis and minimal tenderness. No femoral bruit was ausculted Medications: ??? aspirin 81 mg Oral Daily ??? DISCONTD: atorvastatin 40 mg Oral Daily ??? clopidogrel 75 mg Oral Daily ??? divalproex 2,000 mg Oral QAM ??? drug not in computer Oral QAM ??? heparin (porcine) ??? heparin (porcine) ??? insulin aspart protamine-insulin aspart 20 Units Subcutaneous BID AC ??? insulin lispro 6 Units Subcutaneous Once ??? insulin lispro Subcutaneous QID SS ??? lisinopril 5 mg Oral Daily ??? DISCONTD: metoprolol tartrate 12.5 mg Oral BID ??? DISCONTD: metoprolol tartrate 25 mg Oral BID ??? metoprolol tartrate 37.5 mg Oral BID ??? nicotine 1 patch Transdermal Daily ??? nicotine patch removal Other QHS ??? nitroGLYCERIN 0.8 mg Sublingual Once ??? NO additional fluids MISCELLANEOUS Q24H ??? omega-3 fatty acids-fish oil 2 capsule Oral Daily ??? risperiDONE 4 mg Oral Daily ??? simvastatin 40 mg Oral QHS Labs: Component Latest Ref Rng 05/01/2011 04/30/2011 Creatinine Serum 0.4-1.3 mg/dL 0.8 Est GFR Am >60 mL/min/1.73m2 >60 Est GFR Non-Afr Am >60 mL/min/1.73m2 >60 Blood Urea Nitrogen 5-26 mg/dL 17 Creatine Kinase 0-225 U/L 63 108 Lab Glucose 60-100 mg/dL 211 (H) Magnesium 1.5-2.4 mg/dL 2.2 Platelet Count 140-450 k/cmm 171 04/30/2011 13:50 04/30/2011 17:30 04/30/2011 19:53 Tropi Baseline 0.48 (CH) Tropi At 90 Min <0.10 Tropi At 6 Hrs <0.10 Studies: CORONARY ANGIOGRAM: (brief report) left heart cath cor angio PTCA/stenting 99% mid RCA without problems. LM, LAD, Circ.- OK, mid RCA99%, some PDA collaterals from LAD. after PTCA and stenting 3.5mm x 16 noncoated stent to 0%, ELIZABETH 3 flow. distal PDA 70%, 90% lesions. EF 41% inf hypo, sluggish, EDP 27mmHg. ASSESSMENT: 1. Acute inferior NSTEMI: status post coronary angiogram with bare-metal stent x 1 to mid RCA, troponin to 0.46. 2. Ischemic cardiomyopathy, EF 41% with inferior hypokinesis 3. Tobacco abuse 4. Dyslipidemia 5. Hypertension 6. Type II diabetes PLAN: Discussion with patient and his regarding the findings of his coronary angiogram and stent placement. Discussed new medications including Plavix 75 mg daily for a least 6 weeks, preferably one year, He does have financial concerns. ASA 81 mg indefinitely. Will start Coreg 6.25 mg BID along w ith his current lisinopril with plan for up-titration as outpatient. Will also plan for follow-up echocardiogram to reassess his left ventricular systolic function. Discussed the importance of aggressive therapeutic lifestyle changes for secondary CAD prevention. He expresses a commitment to quit smoking, he is using a nicotine patch. Anticipate discharge to home today. He prefers follow-up in [place] and our schedulers will call him on Tuesday to arrange PA visit in 7- 10 days and Relay Technician visitin 4-6 weeks. Patient discussed with Dr. Tanesha Greene. Marilu Hernandez PA-C Cardiology Tanesha Greene MD - 05/01/2011 9:28 AM CST Progress Note chart and data reviewed Subjective: feels fine no cp or sob no arrythmia no n/v/d R groin without any issues Objective: BP 117/87 Pulse 82 Temp(Src) 36.6 ??C (97.9 ??F) (Oral) Resp 16 Wt 100.336 kg (221 lb 3.2 oz) SpO2 98% Intake/Output Summary (Last 24 hours) at 05/01/11 0921 Last data filed at 04/30/11 2100 Gross per 24 hour Intake 250 ml Output 400 ml Net -150 ml Gen: A+O X 3, in NAD HEENT: anicteric sclera NECK: supple, no JVD, no JAXSON CARDIAC: RRR, s1, s2, no murmur LUNGS: CTA ABDOMEN: soft, NT, ND, positive BS, no G/R/T EXTREMITIES: no edema , no calf tenderness R groin no hematoma. pedal pulses present NEURO: no focal deficits SKIN: no rash Labs: Recent Results (from the past 24 hour(s)) LAB PARTIAL THROMBOPLASTIN TIME Collection Time 04/30/11 10:52 AM Component Value Range ??? Partial Thromboplastin Time 36.3 25.0-38.0 (sec) LAB BEDSIDE GLUCOSE MONITOR Collection Time 04/30/11 12:27 PM Component Value Range ??? Bedside Blood Glucose Test 242 (mg/dL) LAB BUN Collection Time 04/30/11 1:50 PM Component Value Range ??? Blood Urea Nitrogen 17 5-26 (mg/dL) LAB CPK Collection Time 04/30/11 1:50 PM Component Value Range ??? Creatine Kinase 108 0-225 (U/L) LAB CREATININE Collection Time 04/30/11 1:50 PM Component Value Range ??? Creatinine Serum 0.8 0.4-1.3 (mg/dL) ? ? Est GFR Am >60 >60 (mL/min/1.73m2) ? ? Est GFR Non-Afr Am >60 >60 (mL/min/1.73m2) LAB GLUCOSE Collection Time 04/30/11 1:50 PM Component Value Range ??? Lab Glucose 211 (*) 60-100 (mg/dL) LAB MAGNESIUM Collection Time 04/30/11 1:50 PM Component Value Range ??? Magnesium 2.2 1.5-2.4 (mg/dL) LAB ELECTROLYTES (NA, K, CL, BICARB) Collection Time 04/30/11 1:50 PM Component Value Range ??? Sodium 141 137-147 (mEq/L) ??? Potassium 3.6 3.5-5.2 (mEq/L) ??? Chloride 108 98-110 (mEq/L) ??? Bicarbonate 26 23-33 (mmol/L) LAB COMPLETE BLOOD COUNT W/DIFF Collection Time 04/30/11 1:50 PM Component Value Range ??? White Blood Cell Count 10.5 3.8-11.0 (k/cmm) ??? Red Blood Cell Count 4.32 4.20-5.90 (m/cmm) ??? Hemoglobin 12.2 (*) 13.4-17.5 (g/dL) ??? Hematocrit 37.9 (*) 39.0-51.0 (%) ??? Mean Corpuscular Volume 87.7 80.0-100.0 (fL) ??? RDW 14.3 11.0-15.0 (%) ??? Platelet Count 51 (*) 140-450 (k/cmm) LAB PROTIME W/INR Collection Time 04/30/11 1:50 PM Component Value Range ??? Prothrombin Time 13.5 12.6-15.0 (sec) ??? INR 1.1 LAB CARDIAC PROFILE Collection Time 04/30/11 1:50 PM Component Value Range ??? Tropi Baseline 0.48 (*) 0.00-0.30 (ng/mL) N/O LAB DIFFERENTIAL Collection Time 04/30/11 1:50 PM Component Value Range ??? Absolute Neutrophils 7.6 1.8-8.0 (k/cmm) ??? Absolute Lymphocytes 1.2 1.1-4.0 (k/cmm) ??? Absolute Monocytes 1.5 (*) 0.2-0.8 (k/cmm) ??? Absolute Eosinophils 0.0 0.0-0.5 (k/cmm) ??? Absolute Basophils 0.2 0.0-0.2 (k/cmm) ??? Platelet Estimate Significant Dec ??? Elliptocytes Few (*) ??? Acanthocytes Few (*) ??? Absolute Metamyelocytes 0.1 (*) 0 (k/cmm) LAB BEDSIDE GLUCOSE MONITOR Collection Time 04/30/11 4:35 PM Component Value Range ??? Bedside Blood Glucose Test 149 (mg/dL) N/O LAB CARD PROF TROPI 90 MIN Collection Time 04/30/11 5:30 PM Component Value Range ? ? Tropi At 90 Min <0.10 0.00-0.30 (ng/mL) N/O LABS CARD PROF TROPI 6 HRS Collection Time 04/30/11 7:53 PM Component Value Range ? ? Tropi At 6 Hrs <0.10 0.00-0.30 (ng/mL) LAB BEDSIDE GLUCOSE MONITOR Collection Time 04/30/11 9:33 PM Component Value Range ??? Bedside Blood Glucose Test 353 (mg/dL) LAB PARTIAL THROMBOPLASTIN TIME Collection Time 05/01/11 4:48 AM Component Value Range ??? Partial Thromboplastin Time 27.3 25.0-38.0 (sec) LAB CPK Collection Time 05/01/11 4:49 AM Component Value Range ??? Creatine Kinase 63 0-225 (U/L) LAB TROPONIN-I Collection Time 05/01/11 4:49 AM Component Value Range ? ? Troponin I <0.10 0.00-0.30 (ng/mL) LAB PLATELET COUNT Collection Time 05/01/11 5:58 AM Component Value Range ??? Platelet Count 171 140-450 (k/cmm) LAB BEDSIDE GLUCOSE MONITOR Collection Time 05/01/11 8:05 AM Component Value Range ??? Bedside Blood Glucose Test 299 (mg/dL) Assessment/Plan: Acute VA Ischemic CM EF 41% RCA stent Uncontrolled type 2 DM Obesity Smoking HTN Dyslipidemia Plavix and ASA Coreg 6.26 mg po BID cont lisinopril resume outpt DM regimen including metformin smoking cessation and wt loss d/w pt continue same dose of Lipitor follow up with cardiology will be scheduled on Tuesday dc today d/w pt, and cardilogy Total time: 40 min Coordination of care and counseling Time: 26 min Jackie Lemons RN - 04/30/2011 6:22 PM CST O: Sheath Pull D: Sheath to be pulled per MD orders. Rt. groin site CDI, no bleeding from site, pulses palpable. VSS A: Educated pt. on sheath pull. Sheath pulled at 1800, manual pressure held for 15 minutes. R: No change in pt. status post sheath removal. Rt. groin site soft, no hematoma, pulses palpable. Continue to monitor and call MD with any change in pt. status. Jackie Mcclendon RN 6:22 PM 04/30/2011 Marlin Corrales RN - 04/30/2011 4:47 PM CST TRANSFER O: Safe transfer to: /. Safe transfer from: [facility]. D: MD order to transfer to: ICU related to angiogram with stent. A: Discussed plan of care with patient. Re-oriented to new room. Call light in reach. Bed alarm: on. See flowsheets for vital signs and assessment. R: Patient transferred via: cart. Patient arrived via: cart. Patient settled into bed. Will continue to monitor. Marlin Mcintyre RN 4:46 PM 04/30/2011 Demario Corrales MD - 04/30/2011 4:09 PM CST EF 41% inf hypo, sluggish, EDP 27mmHg. Demario Corrales MD - 04/30/2011 4:07 PM CST left heart cath cor angio PTCA/stenting 99% mid RCA without problems. LM, LAD, Circ.- OK, mid RCA99%, some PDA collaterals from LAD. after PTCA and stenting 3.5mm x 16 noncoated stent to 0%, ELIZABETH 3 flow. distal PDA 70%, 90% lesions. Celso Cronin MD - 04/30/2011 3:11 PM CST pt in picket [employer] Abbie Mukherjee RN - 04/29/2011 11:02 PM CST O: Belongings will be secure D: Pt verbalized he is concerned about his wallet being safe while he is inpatient. A: Pt placed wallet in valuables envelope and security took it to the vault. R: Pt verbalizes relief that valuables are safe. Will spanish moss picker upon discharge, pick-up slip placed inchart. Abbie Mukherjee RN 11:02 PM 04/29/2011 Jessenia Cowart - 04/29/2011 8:20 PM CST ADMIT O: Admitted patient via cart from [facility] to bed # [id number]. D: Patient is oriented x 4; See Admission Assessments. A: Discussed plan of care. See education record for admission education. Oriented to room. Call light in reach. Bed alarm: off R: Patient status: had 2.5 out of 10 chest discomfort on arrival. pain subsided with rest and oxygenat 4L/NC. Will monitor. N: Jessenia Cowart RN 8:20 PM 04/29/2011 documented in this encounter Consult Notes Estevan Taylor MD - 04/30/2011 10:19 AM CST Please see dictated note. Impression: 1. Chest pain--as he describes it today, sounds like chest wall pain with tender spot, etc. I realize the story varies. 2. RCA calcification and narrowing on CT angio. Does have inferior Q-waves. No old tracings are available. In general exercise tolerance is good with no exertional symptoms. 3. Diabetes. 4. Smoker. 5. Hyperlipidemia. 6. Hypertension. 7. Bipolar disorder. 8. Hx. seizures. Suggest: 1. Cor angio. I discussed role of clopidogrel if he does have a lesion requiring stenting. Compliance and cost are both issues. Favor bare metal stent. --[facility] Estevan Taylor MD - 04/30/2011 10:19 AM CST Consults signed by Estevan Taylor MD at 05/01/1135 Author: Estevan Taylor MD Service: (none) Author Type: Physician Filed: 05/01/1135 Note Time: 04/30/11 101 Status: Signed Plant Propagator: Estevan Taylor MD (Physician) NAME: SHARLENE KRISHNAMURTHY MR#: [id number] CSN: [id number] AUTHENTICATING CLINICIAN: Estevan Taylor MD CONFIRM #: [id number] LOC: 1 HOSPITAL CONSULTATION DATE OF CONSULTATION: 04/30/2011 DATE OF : 1970 Dr. Diaz has requested cardiology consultation for this 41-year-old man because of chest pain. Mr. Krishnamurthy returned from a walk the afternoon of admission. Once he got back indoors, he developed a sharp, stabbing pain in his chest. As he describes it now, he says there was a tender spot in his chest. It hurt to move. After about half an hour he went to the emergency room and got morphine, but he says the pain came and went most of yesterday afternoon, but he has been comfortable overnight. His serum markers were negative, and the electrocardiogram showed inferior Q waves without evolutionary changes. He initially was set up for an exercise echocardiogram. However, the resting images were not the greatest and there was some question about the inferior wall visualization. So, he was sent for a CT angiogram. This showed a calcified mid right coronary narrowing which appeared to be quite tight, worse than the CT coronary angiogram of a year ago. He is transferred for further evaluation. He has been comfortable on admission now. He has had chest pains off and on previously. He was hospitalized at [facility] in November 2009 and at that point the CT angiogram showed non-flow- limiting disease in the right coronary, and he had a normal exercise nuclear scan. 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 He has been walking several days a week for half an hour at a time, doing some work around the house, etc. He has not had activity restrictions. He lives in a townhouse, so he does not do outside work. He has coronary risk factors of early coronary disease in his father in his late 30s, cigarette smoking at a rate of about a pack a day, hypertension, hyperlipidemia, diabetes. Other problems include bipolar disorder. He has had seizures in the past, which have been attributed to his psychotropic meds. His outpatient medicines are aspirin 81 daily, atorvastatin 40 daily, divalproex 2000 daily, fenofibrate 160 daily, insulin, lisinopril 5 daily, metformin 1000 at night, omega-3 fatty acids, risperidone 4 mg daily. Review of systems is recorded in the admitting history and physical. The patient's weight has been stable. No febrile illnesses. On exam he is a quiet gentleman who is comfortable. He is wearing a baseball cap in bed. Alert and oriented. 221 pounds. 5 feet 10 inches. Blood pressure 114/75, heart rate 68 in sinus rhythm. 95% saturated on room air. HEENT: Pupils normal. Mucous membranes normal. NECK: Thyroid not palpable. No bruits. CHEST: Clear. He is not wheezing. HEART: S1, S2 normally split. Pulses normal. No edema. ABDOMEN: Liver and spleen not palpable. EXTREMITIES: Normal. SKIN: Normal. NEUROLOGIC: Cranial nerves normal. His electrocardiogram from [place] shows sinus rhythm, Q-waves in inferior leads, nonspecific lateral ST-wave flattening. His hemoglobin is 14.8, white count 8100, platelets 250,000, sodium 129, potassium 4.3, BUN 13, creatinine 0.7. His troponins were normal. In March his cholesterol was 280, triglycerides 384, HDL 30, LDL 173 (this is before starting meds). IMPRESSION: 1. Chest pain. As the patient describes it today, it sounds like it was chest wall discomfort. I realize this story varies. 2. ASHD Right coronary calcification and narrowing on CT coronary angiogram. He does have inferior Q-waves. We have no old tracings. In general his exercise tolerance has been good with no exertional symptoms. 3. Diabetes. 4. Smoker. 5. Hyperlipidemia, had been untreated. 6. Hypertension. 7. Bipolar disorder. 8. Seizures. SUGGESTION: Coronary angiography. The patient understands the procedure, the risks, the role of revascularization, and is a candidate for conscious sedation. We discussed clopidogrel if he does require a coronary stent. Both compliance and cost are issues, and so for that reason a bare metal stent would be favored. CC: ROLANDO LOPEZ, DO [address] [facility] [place] [address] [facility]:MEDQ C: CONFIRM #: [id number] [employer] documented in this encounter OR Notes H&P - Geena Diaz MD - 04/29/2011 9:14 PM CST H&P signed by Geena Diaz MD at 04/29/112256 Author: Geena Diaz MD Service: (none) Author Type: Physician Filed: 04/29/112256 Note Time: 04/29/112113 Status: Signed Plant Propagator: Geena Diaz MD (Physician) NAME: SHARLENE KRISHNAMURTHY MR#: [id number] CSN: [id number] AUTHENTICATING CLINICIAN: Geena Diaz MD CONFIRM #: [id number] LOC: 1 HOSPITAL HISTORY AND PHYSICAL DATE OF SERVICE: 04/29/2011 DATE OF : 1970 CHIEF COMPLAINT: Patient transferred because of chest pain and abnormal CT angiogram. HPI: Yesterday the patient was walking outdoors when he developed mild chest pain with shortness of breath. He went home and 10 minutes later developed what he described as 10 out of 10 substernal chest pain that lasted 30 minutes. At that point he went to the emergency room where he received morphine sulfate with significant improvement of his pain. His EKG showed no acute changes. His troponin was negative. Today a stress echo test was indeterminate and a CT angiogram was repeated and compared to a study performed, I believe in 2009, it showed high-grade RCA stenosis. The patient was started on heparin infusion at the [facility] and given metoprolol 12.5 mg orally. Cardiology at [facility] was contacted and they recommended he be transferred here. Patient reports he had slight discomfort in his chest on arrival here today and with the application of nasal cannula oxygen the discomfort resolved. He currently is pain free. MEDICAL PROBLEMS: 1. Bipolar type 1. 2. Dyslipidemia. 3. Coronary artery disease, mild by CT angiogram in [address] angiogram today. 4. Abnormal liver enzymes. 5. Chest wall pain. 6. Tinea corporis. 7. Hypertriglyceridemia. 8. Diabetes mellitus type 2 uncontrolled. 9. Erectile dysfunction. 10.Hypertension. 11.Hyponatremia chronic. 12.Seizure disorder, believed to be a manifestation of psychotropic medications. Last episode October 2009. MEDICATIONS.: 1. Aspirin 81 mg daily. 2. Lipitor 40 mg at bedtime. 3. Depakote 2000 mg q.a.m. 4. Fenofibrate 160 mg daily. 5. NovoLog 70/30 mix 20 units b.i.d. 6. Lisinopril 5 mg daily. 7. Metformin 1000 mg XR product at bedtime. 8. Vilas-3 fatty acid fish oil 2 grams daily. 9. Risperidone 4 mg daily. 10.Patient also running heparin infusion for anticoagulation on arrival. ADVERSE DRUG REACTIONS: Haldol, thiothixene, aripiprazole, trifluoperazine and ziprasidone. FAMILY HISTORY.: Dad had an VA at age 35 and is currently doing well at age 69. SOCIAL HISTORY: Patient does not use alcohol. He smokes about three-quarters pack of cigarettes daily. 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 He would like to return to work. REVIEW OF SYSTEMS: Patient reports weight has been stable within 5 pounds in recent months. He reports no maxillary sinus pain. He has no history of broken nose, deviated septum, sinus surgery. He has ongoing cough in the past 2 months with yellow- green secretions. He denies current chest pain. He denies edema. His episode of chest pain yesterday was associated with slight nausea and sweating on the back of his neck. Patient reports he has had a problem with vomiting in the past that was related to his Glucophage dose but once it was reduced the vomiting problem improved. This patient reports tingling of his right big toe. He has had body spasm believed to be dyskinesia related to his bipolar disorder, most recently in October 2009, but he does take Depakote on a daily basis to try and prevent any further complications, although he says his problem is not exactly a regular seizure. This patient reports some depression, currently, occasional insomnia. He has had previous suicidal ideation and 2 previous suicide attempts, but is not feeling at all suicidal at this time. He denies polyuria, polydipsia. On full and complete review of systems he denies additional concerns today. OBJECTIVE EXAM: Well-developed male in no distress. VITAL SIGNS: See Epic, in particular, temperature 37, respirations 16, pulse 89, blood pressure 125/84. Mean arterial pressure 94. O2 sat 95% on room air. ABDOMEN: Today's examination is remarkable for obese abdomen with no hepatosplenomegaly or tenderness. No bruit auscultated in the abdomen. HEART: Regular rate and rhythm S1, S2. No murmur, rub or gallop appreciated. LUNGS: Clear with normal respiratory effort. The rest of this patient's full and complete physical exam is unremarkable. DATA: From [facility] today: Sodium 130 which is stable for this patient, with potassium 4, creatinine 0.71. From April 28, 2011: Hemoglobin 14 with white count 8000 and INR 1.0. [facility] labs from today: Platelets 209, INR 1.1, creatinine 0.8, PTT 30. Chest x-ray from [facility] reviewed by their Radiologist as showing no acute change. EKG ordered upon this patient's arrival and reviewed by myself today shows sinus rhythm with Qs in leads III and F, T inversion in the same leads and question of previous inferior infarct. No acute change appreciated. ASSESSMENT AND PLAN: 1. Chest pain. Differential diagnosis coronary artery disease. DISCUSSION: Patient had an indeterminate stress test today, but his CT angiogram compared to last year shows definite progression of right coronary artery blockage PLAN: Patient was transferred here on the recommendation of our Cardiologists. He is on IV heparin. He will receive beta cordell, metoprolol 12.5 mg again in the a.m. If he has recurrent chest pain overnight he has been advised to contact the nurse directly. 2. Tobacco abuse. DISCUSSION: Patient smokes three-quarters to a pack daily. PLAN: Continue NicoDerm 21 mg patch. 3. Hypertension. DISCUSSION: Currently controlled. PLAN: Continue medications. 4. Diabetes mellitus 2, uncontrolled DISCUSSION: Patient's blood sugars were monitored at [facility]. PLAN: Patient is n.p.o. now in anticipation of his procedure in the morning. We will check q.i.d. blood sugars and when he resumes a diet it should be a diabetic diet. Insulin has been prescribed as per his usual protocol and Glucophage will be continued at this time. 5. Hyponatremia. DISCUSSION: This is reported to be chronic and stable. PLAN: Recheck sodium in the a.m. SME:MEDQ C: CONFIRM #: [id number] [employer] documented in this encounter Miscellaneous Notes Medication History - Rakel, MD Elvis - 05/01/2011 10:20 AM CST INPATIENT MEDS Encounter Date: 04/29/11 aspirin 81 mg chewable tablet Start Date:05/01/11, End Date:08/13/11, Frequency:DAILY *No Administrations Recorded clopidogrel (PLAVIX) 75 mg tablet Start Date:05/01/11, End Date:06/11/11, Frequency:DAILY *No Administrations Recorded carvedilol (COREG) 6.25 mg tablet Start Date:05/01/11, End Date:07/24/12, Frequency:2 TIMES DAILY WITH MEALS *No Administrations Recorded clopidogrel (PLAVIX) 75 mg tablet Start Date:05/01/11, End Date:05/01/11, Frequency:DAILY *No Administrations Recorded aspirin 325 mg tablet Start Date:05/01/11, End Date:05/01/11, Frequency:DAILY *No Administrations Recorded insulin lispro (HumaLOG) 100 unit/mL injection 6 Units Start Date:04/30/11, End Date:04/30/11, Frequency:ONCE Taken Dose Action User Route Site Recorded Comment Reason 04/30/112149 6 Units Given Laura Valentine RN Subcutaneous - 04/30/112149 - - metoprolol tartrate (LOPRESSOR) tablet 37.5 mg Start Date:04/30/11, End Date:05/01/11, Frequency:2 TIMES DAILY Taken Dose Action User Route Site Recorded Comment Reason 05/01/11 0816 37.5 mg Given Kacie Matias RN Oral - 05/01/11 0817 - - 04/30/112100 37.5 mg Given Laura Valentine RN Oral - 04/30/112100 - - morphine injection 2-4 mg Start Date:04/30/11, End Date:05/01/11, Frequency:EVERY 5 MIN PRN *No Administrations Recorded ondansetron (ZOFRAN) injection 4 mg Start Date:04/30/11, End Date:05/01/11, Frequency:EVERY 6 HOURS PRN *No Administrations Recorded simvastatin (ZOCOR) tablet 40 mg Start Date:04/30/11, End Date:05/01/11, Frequency:AT BEDTIME Taken Dose Action User Route Site Recorded Comment Reason 04/30/112119 40 mg Given Laura Valentine RN Oral - 04/30/112119 - - metoprolol tartrate (LOPRESSOR) tablet 25 mg Start Date:04/30/11, End Date:04/30/11, Frequency:2 TIMES DAILY *No Administrations Recorded lidocaine-epinephrine 1 %-1:100,000 injection 1-5 mL Start Date:04/30/11, End Date:05/01/11, Frequency:PRN *No Administrations Recorded 0.9% sodium chloride bolus 250 mL Start Date:04/30/11, End Date:05/01/11, Frequency:PRN *No Administrations Recorded atropine 0.1 mg/mL injection 0.5 mg Start Date:04/30/11, End Date:05/01/11, Frequency:PRN *No Administrations Recorded aspirin chewable tablet 81 mg Start Date:05/01/11, End Date:05/01/11, Frequency:DAILY Taken Dose Action User Route Site Recorded Comment Reason 05/01/11 0800 81 mg Given Kacie Matias RN Oral - 05/01/11 0816 - - nitroGLYCERIN (NITROSTAT) SL tablet 0.4 mg Start Date:04/30/11, End Date:05/01/11, Frequency:PRN *No Administrations Recorded NO additional fluids Start Date:04/30/11, End Date:05/01/11, Frequency:EVERY 24 HOURS Taken Dose Action User Route Site Recorded Comment Reason 04/30/11 1700 - Noted Marlin Mcintyre RN MISCELLANEOUS - 04/30/11 1703 - - clopidogrel (PLAVIX) tablet 75 mg Start Date:05/01/11, End Date:05/01/11, Frequency:DAILY Taken Dose Action User Route Site Recorded Comment Reason 05/01/11 0819 75 mg Given Kacie Matias RN Oral - 05/01/11 0819 - - metoprolol (LOPRESSOR) injection 5 mg Start Date:04/30/11, End Date:05/01/11, Frequency:EVERY 5 MIN PRN *No Administrations Recorded diltiazem (CARDIZEM) injection 5-10 mg Start Date:04/30/11, End Date:05/01/11, Frequency:EVERY 5 MIN PRN *No Administrations Recorded nitroGLYCERIN (NITROSTAT) SL tablet 0.8 mg Start Date:04/30/11, End Date:05/01/11, Frequency:ONCE *No Administrations Recorded fentaNYL (SUBLIMAZE) injection 25-50 mcg Start Date:04/30/11, End Date:05/01/11, Frequency:EVERY 5 MIN PRN *No Administrations Recorded heparin (porcine) 2,000 unit/1,000 mL flush Start Date:04/30/11, End Date:05/01/11, Frequency:- *No Administrations Recorded heparin (porcine) 2,000 unit/1,000 mL flush Start Date:04/30/11, End Date:05/01/11, Frequency:- *No Administrations Recorded diazepam (VALIUM) tablet 5 mg Start Date:04/30/11, End Date:05/01/11, Frequency:ONCE PRN *No Administrations Recorded 0.9% sodium chloride infusion Start Date:04/30/11, End Date:04/30/11, Frequency:ONCE Taken Dose Action User Route Site Recorded Comment Reason 04/30/11 0930 100 mL/hr Started Radha Ryan RN Intravenous - 04/30/11 1117 - - clopidogrel (PLAVIX) 300 mg tablet Start Date:04/30/11, End Date:05/01/11, Frequency:ONCE *No Administrations Recorded metoprolol tartrate (LOPRESSOR) tablet 50 mg Start Date:04/30/11, End Date:05/01/11, Frequency:ONCE PRN *No Administrations Recorded metoprolol tartrate (LOPRESSOR) tablet 25 mg Start Date:04/30/11, End Date:05/01/11, Frequency:ONCE PRN *No Administrations Recorded acetaminophen (TYLENOL) tablet 325-650 mg Start Date:04/30/11, End Date:05/01/11, Frequency:EVERY 4 HOURS PRN *No Administrations Recorded aspirin 325 mg tablet Start Date:04/30/11, End Date:04/30/11, Frequency:- Taken Dose Action User Route Site Recorded Comment Reason 04/30/11 0842 325 mg Given Radha Ryan RN - - 04/30/11 0842 - - 0.9% sodium chloride solution Start Date:04/30/11, End Date:04/30/11, Frequency:- *No Administrations Recorded heparin (porcine) 1,000 unit/mL injection 3,000 Units Start Date:04/30/11, End Date:04/30/11, Frequency:ONCE Taken Dose Action User Route Site Recorded Comment Reason 04/30/11 0452 3,000 Units Given Luis Barr RN Intravenous - 04/30/11 0452 - - diphenhydrAMINE (BENADRYL) capsule 25-50 mg Start Date:04/30/11, End Date:05/01/11, Frequency:AT BEDTIME PRN Taken Dose Action User Route Site Recorded Comment Reason 04/30/11 0238 25 mg Given Luis Barr RN Oral - 04/30/11 0238 - - zolpidem (AMBIEN) tablet 10 mg Start Date:04/30/11, End Date:04/30/11, Frequency:ONCE Taken Dose Action User Route Site Recorded Comment Reason 04/30/11 0115 10 mg Not Given Luis Barr RN Oral - 04/30/11 0138 says ambien makes him groggy. Patient/family refused Fenofibrate 160 mg tablet Start Date:04/30/11, End Date:05/01/11, Frequency:EVERY MORNING Taken Dose Action User Route Site Recorded Comment Reason 05/01/11 0800 - Given Kacie Matias RN Oral - 05/01/11 0822 - - 04/30/11 0842 - Given Radha Ryan RN Oral - 04/30/11 0842 - - drug not in computer Start Date:04/30/11, End Date:-, Frequency:DAILY *No Administrations Recorded Fenofibrate 150 mg Start Date:04/30/11, End Date:04/29/11, Frequency:DAILY *No Administrations Recorded insulin aspart protamine-insulin aspart (NovoLOG 70/30) 100 unit/mL (70-30) injection 20 Units Start Date:04/30/11, End Date:05/01/11, Frequency:2 TIMES DAILY BEFORE MEALS Taken Dose Action User Route Site Recorded Comment Reason 05/01/11 0825 20 Units Given Kacie Matias RN Subcutaneous - 05/01/11 08 - - 04/30/111706 20 Units Given Marlin Mcintyre RN Subcutaneous - 04/30/11 170 - - 04/30/11 0842 20 Units Given Radha Ryan RN Subcutaneous - 04/30/11 0842 - - nicotine (NICODERM CQ) 21 mg/24 hr patch Start Date:04/30/11, End Date:05/01/11, Frequency:DAILY Taken Dose Action User Route Site Recorded Comment Reason 05/01/11 08 1 patch Given Kacie Matias RN Transdermal - 05/01/11 08 - - 04/30/11 0852 1 patch Given Radha Ryan RN Transdermal - 04/30/11 0852 - - nicotine patch removal Start Date:04/29/11, End Date:05/01/11, Frequency:AT BEDTIME Taken Dose Action User Route Site Recorded Comment Reason 04/30/112199 - Given Laura Valentine RN Other - 04/30/112149 - - 04/29/112199 - Removed Abbie Mukherjee RN Other - 04/29/112206 - - insulin lispro (HumaLOG) 100 unit/mL injection Start Date:04/29/11, End Date:05/01/11, Frequency:4 TIMES DAILY SLIDING SCALE Taken Dose Action User Route Site Recorded Comment Reason 05/01/11 0800 3 Units Given Kacie Matias RN Subcutaneous - 05/01/11 08 - - 01/06/12 2200 - Not Given Laura Valentine RN Subcutaneous - 04/30/11 2150 - Other 04/30/11 1630 - Not Given Marlin Mcintyre RN Subcutaneous - 04/30/11 1703 - Order parameters not met 04/30/11 1130 - Not Given Radha Ryan RN Subcutaneous - 04/30/11 1128 - Order parameters not met 04/30/11 0800 - Not Given Radha Ryan RN Subcutaneous - 04/30/11 0843 - Other 04/29/11 2204 3 Units Given Abbie Mukherjee RN Subcutaneous - 04/29/11 2207 - - atorvastatin (LIPITOR) tablet 40 mg Start Date:04/30/11, End Date:04/30/11, Frequency:DAILY Taken Dose Action User Route Site Recorded Comment Reason 04/30/11 0841 40 mg Given Radha Ryan RN Oral - 04/30/11 0842 - - divalproex (DEPAKOTE) DR tablet 2,000 mg Start Date:04/30/11, End Date:05/01/11, Frequency:EVERY MORNING Taken Dose Action User Route Site Recorded Comment Reason 05/01/11 0817 2,000 mg Given Kacie Matias RN Oral - 05/01/11 0818 - - 04/30/11 0841 2,000 mg Given Radha Ryan RN Oral - 04/30/11 0842 - - Fenofibrate Tab 160 mg Start Date:04/29/11, End Date:04/29/11, Frequency:DAILY *No Administrations Recorded insulin aspart protamine-insulin aspart (NovoLOG 70/30) 100 unit/mL (70-30) pen 20 Units Start Date:04/30/11, End Date:04/29/11, Frequency:2 TIMES DAILY BEFORE MEALS *No Administrations Recorded lisinopril (PRINIVIL, ZESTRIL) tablet 5 mg Start Date:04/30/11, End Date:05/01/11, Frequency:DAILY Taken Dose Action User Route Site Recorded Comment Reason 05/01/11 0817 5 mg Given Kacie Matias RN Oral - 05/01/11 0817 - - 04/30/11 0842 5 mg Given Radha Ryan RN Oral - 04/30/11 0842 - - metFORMIN (GLUCOPHAGE-XR) XR 24 hour tablet 1,000 mg Start Date:04/29/11, End Date:04/29/11, Frequency:AT BEDTIME Taken Dose Action User Route Site Recorded Comment Reason 04/29/112199 1,000 mg Not Given Abbie Mukherjee RN Oral - 04/29/112130 angio tomorrow Contraindicated omega-3 fatty acids-fish oil 340-1,000 mg capsule 2 capsule Start Date:04/30/11, End Date:05/01/11, Frequency:DAILY Taken Dose Action User Route Site Recorded Comment Reason 05/01/11 0820 2 capsule Given Kacie Matias RN Oral - 05/01/11819 - - 04/30/11 08 2 capsule Given Radha Ryan RN Oral - 04/30/1143 - - risperiDONE (RisperDAL) tablet 4 mg Start Date:04/30/11, End Date:05/01/11, Frequency:DAILY Taken Dose Action User Route Site Recorded Comment Reason 05/01/11 0818 4 mg Given Kacie Matias RN Oral - 05/01/11 0818 - - 04/30/11 0842 4 mg Given Radha Ryan RN Oral - 04/30/11 0842 - - metoprolol tartrate (LOPRESSOR) tablet 12.5 mg Start Date:04/29/11, End Date:04/30/11, Frequency:2 TIMES DAILY Taken Dose Action User Route Site Recorded Comment Reason 04/30/11 0843 12.5 mg Given Radha Ryan RN Oral - 04/30/1143 - - 04/29/112203 12.5 mg Given Abbie Mukherjee RN Oral - 04/29/112206 - - heparin (porcine) 1,000 unit/mL injection 3,000 Units Start Date:04/29/11, End Date:04/29/11, Frequency:ONCE Taken Dose Action User Route Site Recorded Comment Reason 04/29/112109 3,000 Units Verify Luis Barr RN Intravenous - 04/29/112109 - - 04/29/112107 3,000 Units Verify Abbie Mukherjee RN Intravenous - 04/29/112108 - - 04/29/112102 3,000 Units Given Abbie Mukherjee RN Intravenous - 04/29/112102 - - heparin (porcine) 1,000 unit/mL injection 5,000 Units Start Date:04/29/11, End Date:04/29/11, Frequency:ONCE Taken Dose Action User Route Site Recorded Comment Reason 04/29/11 2030 5,000 Units Not Given Abbie Mukherjee RN Intravenous - 04/29/112103 md changed amtto 3000 units Other heparin (porcine) 100 units/ml in 5% dextrose 250 ml infusion Start Date:04/29/11, End Date:05/01/11, Frequency:TITRATED Taken Dose Action User Route Site Recorded Comment Reason 04/30/11451 1,200 Units/hr Rate/Dose Change JOSETTE Moreau RN Intravenous - 04/30/11453 - - 04/29/112026 1,000 Units/hr Started JOSETTE Turcios RN Intravenous - 04/29/112026 - - heparin (porcine) 1,000 unit/mL injection 1,000 Units Start Date:04/29/11, End Date:04/30/11, Frequency:PRN *No Administrations Recorded fentaNYL (SUBLIMAZE) 50 mcg/mL injection Start Date:04/30/11, End Date:-, Frequency:- *No Administrations Recorded midazolam (VERSED) 1 mg/mL injection Start Date:04/30/11, End Date:-, Frequency:- *No Administrations Recorded nitroGLYCERIN 2mg in 5% dextrose 10 ml syringe Start Date:04/30/11, End Date:-, Frequency:- *No Administrations Recorded 0.9% sodium chloride solution Start Date:04/30/11, End Date:-, Frequency:- *No Administrations Recorded bivalirudin (ANGIOMAX) 250 mg injection Start Date:04/30/11, End Date:-, Frequency:- *No Administrations Recorded 0.9% sodium chloride solution Start Date:04/30/11, End Date:-, Frequency:- *No Administrations Recorded niCARdipine 1 mg in 0.9% sodium chloride 10 ml syringe Start Date:04/30/11, End Date:-, Frequency:- *No Administrations Recorded adenosine 0.48 mg in 0.9% sodium chloride 20 ml syringe Start Date:04/30/11, End Date:-, Frequency:- *No Administrations Recorded clopidogrel (PLAVIX) 300 mg tablet Start Date:04/30/11, End Date:-, Frequency:- *No Administrations Recorded [employer] documented in this encounter Plan of Treatment Not on filedocumented as of this encounter Procedures Procedure Name Priority Date/Time Associated Comments Diagnosis BEDSIDE GLUCOSE Routine 05/01/2011 8:05 Results f or this MONITOR POCT AM [employer] procedure are i n the results section. PLATELETS Routine 05/01/2011 5:58 Results for this AM [employer] procedure are i n the results section. TROPONIN I Specified Time 05/01/2011 4:49 Results fo r this AM [employer] procedure are i n the results section. CK, TOTAL Specified Time 05/01/2011 4:49 Results fo r this AM [employer] procedure are i n the results section. APTT (ACTIVATED Specified Time 05/01/2011 4:48 Results for this PARTIAL AM [employer] procedure are i n THROMBOPLASTIN TIME the resu lts section. BEDSIDE GLUCOSE Routine 04/30/2011 9:33 Results f or this MONITOR POCT PM [employer] procedure are i n the results section. LABS CARD PROF TROPI STAT 04/30/2011 7:53 Resu lts for this 6 HRS PM [employer] procedure are i n the results section. CARD PROF TROPI 90 STAT 04/30/2011 5:30 Result s for this MIN PM [employer] procedure are i n the results section. ECG 12 LEAD INPATIENT STAT 04/30/2011 5:07 Res ults for this PM [employer] procedure are i n the results section. BEDSIDE GLUCOSE Routine 04/30/2011 4:35 Results f or this MONITOR POCT PM [employer] procedure are i n the results section. GLUCOSE Routine 04/30/2011 1:50 Results for this PM [employer] procedure are i n the results section. CARDIAC PROFILE Routine 04/30/2011 1:50 Results f or this PM [employer] procedure are i n the results section. CREATININE / GFR Routine 04/30/2011 1:50 Results for this PM [employer] procedure are i n the results section. COMPLETE BLOOD Routine 04/30/2011 1:50 Results fo r this COUNT-W/DIFF PM [employer] procedure are i n the results section. DIFFERENTIAL Routine 04/30/2011 1:50 Results for this PM [employer] procedure are i n the results section. ELECTROLYTE PANEL Routine 04/30/2011 1:50 Results for this PM [employer] procedure are i n the results section. MAGNESIUM Routine 04/30/2011 1:50 Results for this PM [employer] procedure are i n the results section. CK, TOTAL Routine 04/30/2011 1:50 Results for this PM [employer] procedure are i n the results section. BUN Routine 04/30/2011 1:50 Results for this PM [employer] procedure are i n the results section. INR/PROTIME Routine 04/30/2011 1:50 Results for this PM [employer] procedure are i n the results section. CARDIAC CATH Routine 04/30/2011 1:06 Results for this PROCEDURE PM [employer] procedure are i n the results section. BEDSIDE GLUCOSE Routine 04/30/2011 12:27 Results for this MONITOR POCT PM [employer] procedure are i n the results section. APTT (ACTIVATED Specified Time 04/30/2011 10:52 Result s for this PARTIAL AM [employer] procedure are i n THROMBOPLASTIN TIME the resu lts section. BEDSIDE GLUCOSE Routine 04/30/2011 8:49 Results f or this MONITOR POCT AM [employer] procedure are i n the results section. APTT (ACTIVATED Specified Time 04/30/2011 3:29 Results for this PARTIAL AM [employer] procedure are i n THROMBOPLASTIN TIME the resu lts section. SODIUM Specified Time 04/30/2011 3:29 Results fo r this AM [employer] procedure are i n the results section. BEDSIDE GLUCOSE Routine 04/29/2011 9:22 Results f or this MONITOR POCT PM [employer] procedure are i n the results section. APTT (ACTIVATED STAT 04/29/2011 8:14 Results f or this PARTIAL PM [employer] procedure are i n THROMBOPLASTIN TIME the resu lts section. PLATELETS STAT 04/29/2011 8:14 Results for this PM [employer] procedure are i n the results section. INR/PROTIME STAT 04/29/2011 8:14 Results for this PM [employer] procedure are i n the results section. CREATININE / GFR STAT 04/29/2011 8:13 Results for this PM [employer] procedure are i n the results section. MRSA CULTURE Routine 04/29/2011 8:05 Results for this PM [employer] procedure are i n the results section. ECG 12 LEAD INPATIENT STAT 04/29/2011 7:58 Res ults for this PM [employer] procedure are i n the results section. documented in this encounter Results BEDSIDE GLUCOSE MONITOR (05/01/2011 8:05 AM [employer]) athologist Signature Bedside Blood 299 mg/dL HP CONVERSION Glucose Test Specimen Anatomical Collection Method Collection Time Receive d Time (Source) Location / / Volume Laterality 05/01/2011 8:05 AM 2 8:25 [employer] AM [employer] Tanesha Greene MD LAB_1 Performing Organization Address City/State/ZIP Code Phon e Number HP CONVERSION Platelets (05/01/2011 5:58 AM [employer]) athologist Signature Platelet Count 171 140 - 450 HP CONVERSION k/cmm Specimen Anatomical Collection Method Collection Time Receive d Time (Source) Location / / Volume Laterality 05/01/2011 5:58 AM 2 6:00 [employer] AM [employer] Celso Cronin MD LAB_1 Performing Organization Address City/State/ZIP Code Phon e Number HP CONVERSION Troponin I (05/01/2011 4:49 AM [employer]) athologist Signature TROPONIN I <0.10 0.00 - 0.30 HP CONVERSION ng/mL Specimen Anatomical Collection Method Collection Time Receive d Time (Source) Location / / Volume Laterality BLOOD: 05/01/2011 4:49 AM 2 4:51 [employer] AM [employer] Demario Mcintyre MD LAB_1 Performing Organization Address City/State/ZIP Code Phon e Number HP CONVERSION CK, Total (05/01/2011 4:49 AM [employer]) athologist Signature Creatine Kinase 63 0 - 225 HP CONVERSION U/L Specimen Anatomical Collection Method Collection Time Receive d Time (Source) Location / / Volume Laterality BLOOD: 05/01/2011 4:49 AM 2 4:51 [employer] AM [employer] Demario Mcintyre MD LAB_1 Performing Organization Address City/State/ZIP Code Phon e Number HP CONVERSION APTT (Activated Partial Thromboplastin Time) (05/01/2011 4:48 AM [employer]) [facility] Method Time Signature Partial 27.3 25.0 - HP CONVERSION Thromboplastin Time 38.0 sec Specimen Anatomical Collection Method Collection Time Receive d Time (Source) Location / / Volume Laterality 05/01/2011 4:48 AM 2 4:51 [employer] AM [employer] Geena Diaz MD LAB_1 Performing Organization Address City/[facility]/ZIP Code Phon e Number HP CONVERSION BEDSIDE GLUCOSE MONITOR (04/30/2011 9:33 PM [employer]) athologist Signature Bedside Blood 353 mg/dL HP CONVERSION Glucose Test Specimen Anatomical Collection Method Collection Time Receive d Time (Source) Location / / Volume Laterality 04/30/2011 9:33 PM 2 9:40 SUPERVISOR BOAT OUTFITTING PM SUPERVISOR BOAT OUTFITTING Celso Cronin MD LAB_1 Performing Organization Address City/[facility]/ZIP Code Phon e Number HP CONVERSION LABS CARD PROF TROPI 6 HRS (04/30/2011 7:53 PM SUPERVISOR BOAT OUTFITTING) athologist Signature Tropi At 6 Hrs <0.10 0.00 - HP CONVERSION 0.30 ng/mL Specimen Anatomical Collection Method Collection Time Receive d Time (Source) Location / / Volume Laterality 04/30/2011 7:53 PM 2 8:02 SUPERVISOR BOAT OUTFITTING PM SUPERVISOR BOAT OUT[employer]ITTING Narrative HP CONVERSION - 04/30/2011 8:33 PM SUPERVISOR BOAT OUTFITTING .Critical _TROPI_ result of _0.48_calle d to and read back by_HANNAH FROM CAT.LAB_, 04/30/2011,16:25, by [email or web address] called to and read back by hayder ??rn 3e, 04/30/2011,14:55, by MONICA Celso Cronin MD LAB_1 Performing Organization Address City/[facility]/ZIP Code Phon e Number HP CONVERSION CARD PROF TROPI 90 MIN (04/30/2011 5:30 PM SUPERVISOR BOAT OUTFITTING) athologist Signature Tropi at 90 Min <0.10 0.00 - HP CONVERSION 0.30 ng/mL Specimen Anatomical Collection Method Collection Time Receive d Time (Source) Location / / Volume Laterality 04/30/2011 5:30 PM 2 5:34 SUPERVISOR BOAT OUTFITTING PM SUPERVISOR BOAT OUTFITTING Narrative HP CONVERSION - 04/30/2011 6:05 PM SUPERVISOR BOAT OUTFITTING .Critical _TROPI_ result of _0.48_calle d to and read back by_ERIC FROM CAT.LAB_, 04/30/2011,16:25, by [email or web address] called to and read back by hayder ??rn 3e, 04/30/2011,14:55, by MONICA Celso Cronin MD LAB_1 Performing Organization Address City/[facility]/ZIP Code Phon e Number HP CONVERSION ECG 12 Lead Inpatient (04/30/2011 5:07 PM SUPERVISOR BOAT OUTFITTING) P athologist Signature Ventricular Rate 76 BPM MUSE GHP Atrial Rate 76 BPM MUSE GHP P-R Interval 140 ms MUSE GHP QRS Duration 98 ms MUSE GHP QT 402 ms MUSE GHP QTc 452 ms MUSE GHP P [place] 35 degrees MUSE GHP R [place] 32 degrees MUSE GHP T [place] -28 degrees MUSE GHP Specimen (Source) Anatomical Collection Method Collection Time Re ceived Time Location / / Volume Laterality 04/30/2011 5:07 PM SUPERVISOR BOAT OUTFITTING Narrative MUSE GHP - 07/31/2019 4:22 PM CDT Sinus rhythm Inferior infarct (cited on or before Apr-2011) Abnormal ECG When compared with ECG of 29-APR-2011 19 :58, No significant change was found Procedure Note Epic, Internal Processing - 08/04/2019Fo rmatting of this note might be different from the original. Sinus rhythm Inferior infarct (cited on or before Apr-2011) Abnormal ECG When compared with ECG of 29-APR-2011 19 :58, No significant change was found Demario Mcintyre MD PN ECG ORDERABLES Performing Organization Address [facility] [place]/[facility] Phon e Number MUSE GHP [address] [place] [address] BEDSIDE GLUCOSE MONITOR (04/30/2011 4:35 PM SUPERVISOR BOAT OUTFITTING) athologist Signature Bedside Blood 149 mg/dL HP CONVERSION Glucose Test Specimen Anatomical Collection Method Collection Time Receive d Time (Source) Location / / Volume Laterality 04/30/2011 4:35 PM 2 4:45 SUPERVISOR BOAT OUTFITTING PM SUPERVISOR BOAT OUTFITTING Celso Cronin MD LAB_1 Performing Organization Address City/[facility] Phon e Number HP CONVERSION INR/Protime (04/30/2011 1:50 PM SUPERVISOR BOAT OUTFITTING) P athologist Signature Prothrombin Time 13.5 12.6 - HP CONVERSION 15.0 sec INR 1.1 HP CONVERSION Comment: Recommendations for INR in warfarin ther apy: (Chest, Vol. 119, No. 1, Apr 2000, Suppl ement). Prevention and treatment of venous throm bosis; ? INR 2.0-3.0 Treatment of PE; Prevention of systemic embolism due to prosthetic tissue heart valves, b ileaflet mechanical valves in the aortic position , acute VA, valvular heart disease and atrial fibril lation. Mechanical prosthetic valves, (high risk ). ? INR 2.5-3.5 Prevention of recurrent myocardial infar ct. These recommended ranges serve as guidel mike. Adjustment outside these ranges may be c linically indicated. Specimen Anatomical Collection Method Collection Time Receive d Time (Source) Location / / Volume Laterality 04/30/2011 1:50 PM 2 1:59 SUPERVISOR BOAT OUTFITTING PM SUPERVISOR BOAT OUTFITTING Celso Cronin MD LAB_1 Performing Organization Address City/[facility] Phon e Number HP CONVERSION (ABNORMAL) Differential (04/30/2011 1:50 PM SUPERVISOR BOAT OUTFITTING) Component Value Ref Test Analysis Performed At Patholo gist Range Method Time Signature Absolute 7.6 1.8 - HP CONVERSION Neutrophils 8.0 k/cmm Absolute 1.2 1.1 - HP CONVERSION Lymphocytes 4.0 k/cmm Absolute 1.5 (H) 0.2 - HP CONVERSION Monocytes 0.8 k/cmm Absolute 0.0 0.0 - HP CONVERSION Eosinophils 0.5 k/cmm Absolute 0.2 0.0 - HP CONVERSION Basophils 0.2 k/cmm Platelet Estimate Significant HP CONVERS ION Dec Elliptocytes Few (A) HP CONVERSION Acanthocytes Few (A) HP CONVERSION Absolute 0.1 (A) 0 k/cmm HP CONVERSION Metamyelocytes Specimen Anatomical Collection Method Collection Time Receive d Time (Source) Location / / Volume Laterality 04/30/2011 1:50 PM 2 1:59 SUPERVISOR BOAT OUTFITTING PM SUPERVISOR BOAT OUTFITTING Celso Cronin MD LAB_1 Performing Organization Address [facility] Phon e Number HP CONVERSION (ABNORMAL) CARDIAC PROFILE (04/30/2011 1:50 PM SUPERVISOR BOAT OUTFITTING) [facility] Method Time Signature Tropi Baseline 0.48 (CH) 0.00 - HP CONVERSION 0.30 ng/mL Specimen Anatomical Collection Method Collection Time Receive d Time (Source) Location / / Volume Laterality 04/30/2011 1:50 PM 2 1:59 SUPERVISOR BOAT OUTFITTING PM SUPERVISOR BOAT OUTFITTING Narrative HP CONVERSION - 04/30/2011 4:09 PM SUPERVISOR BOAT OUTFITTING .Critical _TROPI_ result of _0.48_calle d to and read back by_ERIC FROM CAT.LAB_, 04/30/2011,16:25, by [email or web address] called to and read back by hayder ??rn 3e, 04/30/2011,14:55, by MONICA Celso Cronin MD LAB_1 Performing Organization Address City/[facility]/ZIP Code Phon e Number HP CONVERSION (ABNORMAL) Hemogram/Plts/Diff (04/30/2011 1:50 PM SUPERVISOR BOAT OUTFITTING) [facility] Method Time Signature White Blood Cell 10.5 3.8 - HP CONVERSION Count 11.0 k/cmm Red Blood Cell 4.32 4.20 - HP CONVERSION Count 5.90 m/cmm Hemoglobin 12.2 (L) 13.4 - HP CONVERSION 17.5 g/dL Hematocrit 37.9 (L) 39.0 - HP CONVERSION 51.0 % Mean Corpuscular 87.7 80.0 - HP CONVERSION Volume 100.0 fL RDW 14.3 11.0 - HP CONVERSION 15.0 % Platelet Count 51 (CL) 140 - 450 HP CONVERSION k/cmm Specimen Anatomical Collection Method Collection Time Receive d Time (Source) Location / / Volume Laterality 04/30/2011 1:50 PM 2 1:59 SUPERVISOR BOAT OUTFITTING PM SUPERVISOR BOAT OUTFITTING Narrative HP CONVERSION - 04/30/2011 2:40 PM SUPERVISOR BOAT OUTFITTING .plt 51 called to and read back by hayder ??rn 3e, 04/30/2011,14:55, by STEDA Celso Cronin MD LAB_1 Performing Organization Address [facility] Phon e Number HP CONVERSION Electrolyte Panel (04/30/2011 1:50 PM SUPERVISOR BOAT OUTFITTING) athologist Signature Sodium 141 137 - 147 HP CONVERSION mEq/L Potassium 3.6 3.5 - 5.2 HP CONVERSION mEq/L Chloride 108 98 - 110 HP CONVERSION mEq/L Bicarbonate 26 23 - 33 HP CONVERSION mmol/L Specimen Anatomical Collection Method Collection Time Receive d Time (Source) Location / / Volume Laterality 04/30/2011 1:50 PM 2 1:59 SUPERVISOR BOAT OUTFITTING PM SUPERVISOR BOAT OUTFITTING Celso Cronin MD LAB_1 Performing Organization Address City/State/ZIP Code Phon e Number HP CONVERSION Magnesium (04/30/2011 1:50 PM SUPERVISOR BOAT OUTFITTING) athologist Signature Magnesium 2.2 1.5 - 2.4 HP CONVERSION mg/dL Specimen Anatomical Collection Method Collection Time Receive d Time (Source) Location / / Volume Laterality 04/30/2011 1:50 PM 2 1:59 SUPERVISOR BOAT OUTFITTING PM SUPERVISOR BOAT OUTFITTING Celso Cronin MD LAB_1 Performing Organization Address City/[facility]/ZIP Code Phon e Number HP CONVERSION (ABNORMAL) GLUCOSE (04/30/2011 1:50 PM SUPERVISOR BOAT OUTFITTING) athologist Signature Lab Glucose 211 (H) 60 - 100 HP CONVERSION mg/dL Specimen Anatomical Collection Method Collection Time Receive d Time (Source) Location / / Volume Laterality 04/30/2011 1:50 PM 2 1:59 SUPERVISOR BOAT OUTFITTING PM SUPERVISOR BOAT OUTFITTING Celso Cronin MD LAB_1 Performing Organization Address City/[facility] Code Phon e Number HP CONVERSION Creatinine / GFR (04/30/2011 1:50 PM SUPERVISOR BOAT OUTFITTING) athologist Signature Creatinine 0.8 0.4 - 1.3 [...] Time (Source) Location / / Volume Laterality 04/30/2011 1:50 PM 2 1:59 SUPERVISOR BOAT OUTFITTING PM SUPERVISOR BOAT OUTFITTING Celso Cronin MD LAB_1 Performing Organization Address [facility] Phon e Number HP CONVERSION CK, Total (04/30/2011 1:50 PM SUPERVISOR BOAT OUTFITTING) P athologist Signature Creatine Kinase 108 0 - 225 HP CONVERSION U/L Specimen Anatomical Collection Method Collection Time Receive d Time (Source) Location / / Volume Laterality 04/30/2011 1:50 PM 2 1:59 SUPERVISOR BOAT OUTFITTING PM SUPERVISOR BOAT OUTFITTING Celso Cronin MD LAB_1 Performing Organization Address [facility] Code Phon e Number HP CONVERSION BUN (04/30/2011 1:50 PM SUPERVISOR BOAT OUTFITTING) P athologist Signature Blood Urea 17 5 - 26 HP CONVERSION Nitrogen mg/dL Specimen Anatomical Collection Method Collection Time Receive d Time (Source) Location / / Volume Laterality 04/30/2011 1:50 PM 2 1:59 SUPERVISOR BOAT OUTFITTING PM SUPERVISOR BOAT OUTFITTING Celso Cronin MD LAB_1 Performing Organization Address [facility] Phon e Number HP CONVERSION Cardiac Cath Procedure (04/30/2011 1:06 PM SUPERVISOR BOAT OUTFITTING) Specimen (Source) Anatomical Collection Method Collection Time Re ceived Time Location / / Volume Laterality 04/30/2011 1:06 PM SUPERVISOR BOAT OUTFITTING Narrative PN CENTRICITY - 04/30/2011 1:06 PM SUPERVISOR BOAT OUTFITTING SHARLENE KRISHNAMURTHY ?? [id number] Cardiac Catheterization : 1970 Age: 41 years Gender: Male Study date: 04/30/2011 Test time: 15:27 - 15:59 Fluoro time: 6.6 min PPH Staff: ??Antoinette Olivera RN Diagnostic Relay Technician: ??DEMARIO MCINTYRE MD Furnace Checker: ??Brandon Ta Scrub: ??Katie Holder Monitor: ??Zoie Kumar RCVT X-ray Tech: ??Daniela Robles RT Ordering Physician: ??Franck TAYLOR Furnace Checker: ??Harmony Newton RNgeothermal electrical engineerDuplicate Maker: ??FLORENCE MCINTYRE MD Referring Physician 1: ??ROLANDO LOPEZ DO History and indications Indications - ??unstable angina with neg. enzymes, s moker, DM Procedures performed * ??Left heart catheterization with vent riculography. * ??Left coronary angiography. * ??Right coronary angiography. * ??Cor. Stent, Single Vessel. * ??Intervention on mid RCA: stent. Narrative The risks and alternatives of the proced ures and conscious sedation were explained to the patient a nd informed consent was obtained. The patient was brought to the [employer] and placed on the table. The planned [...] selectively cannulated and angiography w as performed. Cardiovascular structures Ventriculography Analysis of regional contractile functio n demonstrated mild anterolateral hypokinesis and severe ralph phragmatic hypokinesis. EF estimated was 39 %. Coronary angiography The coronary circulation is right domina nt. Left main coronary artery - ??Left main: Normal. Left anterior descending artery and bran ches - ??Proximal LAD: Normal. - ??Mid LAD: Angiography showed mild ath erosclerosis. - ??Distal LAD: Normal. Left circumflex artery and branches - ??Circumflex: Normal. Right coronary artery and branches - ??Proximal RCA: Normal. - ??Mid RCA: There was a 99 % stenosis. There was ELIZABETH grade 1 flow through the vessel (slow flow wi thout perfusion). - ??Right PDA: There was a discrete 70 % stenosis. In a second lesion, there was a discrete 90 % stenosis. Interventions Lesion intervention A stent was performed on the lesion in t he mid RCA. RCA- diffucult to wire. After PTCA and stenti ng 99% to 0%, ELIZABETH 3 flow. Sheath exchange. The sheath was exchange d for a 6 FR SHORT SHEATH. Vessel setup was performed. A SHINOBI wi re was used to cross the lesion. Vessel setup was performed. A JR4 AfterYesin g catheter was used to intubate the vessel. Balloon angioplasty was performed, using a 2.5 x 15 NC [employer] [place] balloon, with 2 inflations and a maximum inflation pressure of 12 emma. A 3.5 mm x 16 mm VeriFLEX Bare Metal bar e-metal stent was placed across the lesion and deployed at a maximum inflation pressure of 11 emma. Cardiac interventions Cor. Stent, Single Vessel. Procedure completion Timing: Test started at 15:27. Test conc luded at 15:59. Medications given: Fentanyl, 50 mcg, IV, at 15:09. Fentanyl, 25 mcg, IV, at 15:14. Fentanyl , 25 mcg, IV, at 15:22. Clopidogrel (Plavix), 600 mg, PO, last dose at 16:10. Valium/Diazepam, 5 mg, PO, at 13: 33. Versed (1 mg), 1 mg, IV, at 15:09. Versed (1 mg), 0.5 m g, IV, at 15:14. Versed (1 mg), 0.5 mg, IV, at 15:22. Ang iomax Bolus (Bivalirudin), 15 ml, IV, at 15:40. Elza omax Infusion 1.75 mg/kg/hr, infusion rate of 34.9 ml/hr, I V, at 15:59. NTG (Intra coronary), 200 mcg, at 15:52. Con trast given: 135 ml OPTIRAY 320. Radiation exposure: Fluoros copy time: 6.6 min. Test time: 15:27 - 15:59 Fluoro time: 6.6 min Study conclusions Impressions Successful tx of culprit lesion. Prepared and signed by DEMARIO MCINTYRE MD Signed 04/30/2011 17:21:22 PPH Staff: Antoinette Olivera RN Diagnostic Relay Technician: DEMARIO MCINTYRE Furnace Checker: Brandon Ta Scrub: Katie Holder Monitor: Zoie KumarVT X-ray Tech: Daniela Robles Ordering Physician: Franck TAYLOR MD Furnace Checker: Harmony Newton RNgeothermal electrical engineerDuplicate Maker: MARGO MCINTYRE MD Referring Physician 1: ROLANDO LOPEZ DO Hemodynamic Tables Pressures: ??Baseline Pressures: ??- HR: 66 Pressures: ??- Rhythm: Pressures: ??-- Aortic Pressure (S/D/M): 96/63/91 Pressures: ??-- Left Ventricle (s/edp): 91/25/-- Pressures: ??Post -LV Pressures: ??- HR: 69 Pressures: ??- Rhythm: Pressures: ??-- Aortic Pressure (S/D/M): 95/62/73 Pressures: ??-- Left Ventricle (s/edp): 98/35/-- Outputs: ??Baseline Outputs: ??-- CALCULATIONS[age] Outputs: ??-- CALCULATIONS: Body Surface Area: 2.18 Outputs: ??-- CALCULATIONS: Height in cm : 178.00 Outputs: ??-- CALCULATIONS: Sex: Male Outputs: ??-- CALCULATIONS: Weight in kg : 99.80 Estevan Taylor MD PN CARDIAC CATH ORDERABLES Performing Organization Address [facility] Phon e Number PN CENTRICITY BEDSIDE GLUCOSE MONITOR (04/30/2011 12:27 PM SUPERVISOR BOAT OUTFITTING) athologist Signature Bedside Blood 242 mg/dL HP CONVERSION Glucose Test Specimen Anatomical Collection Method Collection Time Receive d Time (Source) Location / / Volume Laterality 04/30/2011 12:27 04/30/2011 PM SUPERVISOR BOAT OUTFITTING 12:45 PM SUPERVISOR BOAT OUTFITTING Celso Cronin MD LAB_1 Performing Organization Address [facility] Phon e Number HP CONVERSION APTT (Activated Partial Thromboplastin Time) (04/30/2011 10:52 AM SUPERVISOR BOAT OUTFITTING) [facility] Method Time Signature Partial 36.3 25.0 - HP CONVERSION Thromboplastin Time 38.0 sec Specimen Anatomical Collection Method Collection Time Receive d Time (Source) Location / / Volume Laterality 04/30/2011 10:52 04/30/2011 AM SUPERVISOR BOAT OUTFITTING 11:07 AM SUPERVISOR BOAT OUTFITTING Geena Diaz MD LAB_1 Performing Organization Address [facility] Phon e Number HP CONVERSION BEDSIDE GLUCOSE MONITOR (04/30/2011 8:49 AM SUPERVISOR BOAT OUTFITTING) athologist Signature Bedside Blood 274 mg/dL HP CONVERSION Glucose Test Specimen Anatomical Collection Method Collection Time Receive d Time (Source) Location / / Volume Laterality 04/30/2011 8:49 AM 2 9:01 SUPERVISOR BOAT OUTFITTING AM SUPERVISOR BOAT OUTFITTING Celso Cronin MD LAB_1 Performing Organization Address [facility] Phon e Number HP CONVERSION (ABNORMAL) Sodium (04/30/2011 3:29 AM SUPERVISOR BOAT OUTFITTING) athologist Signature Sodium 133 (L) 137 - 147 HP CONVERSION mEq/L Specimen Anatomical Collection Method Collection Time Receive d Time (Source) Location / / Volume Laterality 04/30/2011 3:29 AM 2 3:41 SUPERVISOR BOAT OUTFITTING AM SUPERVISOR BOAT OUTFITTING Geena Diaz MD LAB_1 Performing Organization Address [facility] [place]/[facility] Phon e Number HP CONVERSION APTT (Activated Partial Thromboplastin Time) (04/30/2011 3:29 AM SUPERVISOR BOAT OUTFITTING) Patholo gist Method Time Signature Partial 32.8 25.0 - HP CONVERSION Thromboplastin Time 38.0 sec Specimen Anatomical Collection Method Collection Time Receive d Time (Source) Location / / Volume Laterality 04/30/2011 3:29 AM 2 3:41 SUPERVISOR BOAT OUTFITTING AM SUPERVISOR BOAT OUTFITTING Geena Diaz MD LAB_1 Performing Organization Address [facility] Phon e Number HP CONVERSION BEDSIDE GLUCOSE MONITOR (04/29/2011 9:22 PM SUPERVISOR BOAT OUTFITTING) P athologist Signature Bedside Blood 294 mg/dL HP CONVERSION Glucose Test Specimen Anatomical Collection Method Collection Time Receive d Time (Source) Location / / Volume Laterality 04/29/2011 9:22 PM 2 9:00 SUPERVISOR BOAT OUTFITTING AM SUPERVISOR BOAT OUTFITTING Celso Cronin MD LAB_1 Performing Organization Address [facility] [place]/[facility] Phon e Number HP CONVERSION INR/Protime (04/29/2011 8:14 PM SUPERVISOR BOAT OUTFITTING) P athologist Signature Prothrombin Time 13.8 12.6 - HP CONVERSION 15.0 sec INR 1.1 HP CONVERSION Comment: Recommendations for INR in warfarin ther apy: (Chest, Vol. 119, No. 1, Apr 2000, Suppl ement). Prevention and treatment of venous throm bosis; ? INR 2.0-3.0 Treatment of PE; Prevention of systemic embolism due to prosthetic tissue heart valves, b ileaflet mechanical valves in the aortic position , acute VA, valvular heart disease and atrial fibril lation. Mechanical prosthetic valves, (high risk ). ? INR 2.5-3.5 Prevention of recurrent myocardial infar ct. These recommended ranges serve as guidel mike. Adjustment outside these ranges may be c linically indicated. Specimen Anatomical Collection Method Collection Time Receive d Time (Source) Location / / Volume Laterality 04/29/2011 8:14 PM 2 8:17 SUPERVISOR BOAT OUTFITTING PM SUPERVISOR BOAT OUTFITTING Fan Curry DO LAB_1 Performing Organization Address [facility] [place]/[facility] Phon e Number HP CONVERSION APTT (Activated Partial Thromboplastin Time) (04/29/2011 8:14 PM SUPERVISOR BOAT OUTFITTING) [facility] gist Method Time Signature Partial 33.7 25.0 - HP CONVERSION Thromboplastin Time 38.0 sec Specimen Anatomical Collection Method Collection Time Receive d Time (Source) Location / / Volume Laterality 04/29/2011 8:14 PM 2 8:17 SUPERVISOR BOAT OUTFITTING PM SUPERVISOR BOAT OUTFITTING Fan Curry DO LAB_1 Performing Organization Address [facility] [place]/[facility] Phon e Number HP CONVERSION Platelets (04/29/2011 8:14 PM SUPERVISOR BOAT OUTFITTING) athologist Signature Platelet Count 209 140 - 450 HP CONVERSION k/cmm Specimen Anatomical Collection Method Collection Time Receive d Time (Source) Location / / Volume Laterality 04/29/2011 8:14 PM 2 8:17 SUPERVISOR BOAT OUTFITTING PM SUPERVISOR BOAT OUTFITTING Fan Curry DO LAB_1 Performing Organization Address [facility] [place]/[facility] Phon e Number HP CONVERSION Creatinine / GFR (04/29/2011 8:13 PM SUPERVISOR BOAT OUTFITTING) athologist Signature Creatinine 0.8 0.4 - 1.3 [...] Time (Source) Location / / Volume Laterality 04/29/2011 8:13 PM 2 8:17 SUPERVISOR BOAT OUTFITTING PM SUPERVISOR BOAT OUTFITTING Fan Curry DO LAB_1 Performing Organization Address [facility] [place]/[facility] Phon e Number HP CONVERSION MRSA Culture (04/29/2011 8:05 PM SUPERVISOR BOAT OUTFITTING) Component Value Ref Test Analysis Performed At Patholo gist Range Method Time Signature Culture Mrsa No Methicillin HP CONVERSIO N Screen resistant Staphlyococcus aureus isolated. Comment: ? ORDERED BY: JULIA COVARRUBIAS SOURCE: Nares ?COLLECTED: ??04/29/11 20:05 ? PLATED: ? 04/29/11 20:33 Culture MRSA Screen ?FINAL ? 05/01/11 09:07 No Methicillin resistant Staphlyococcus aureus isolated. Specimen (Source) Anatomical Collection Method Collection Time Re ceived Time Location / / Volume Laterality Nares: 04/29/2011 8:05 PM SUPERVISOR BOAT OUTFITTING Julia Covarrubias MD LAB_1 Performing Organization Address City/State/ZIP Code Phon e Number HP CONVERSION ECG 12 Lead Inpatient (04/29/2011 7:58 PM SUPERVISOR BOAT OUTFITTING) P athologist Signature Ventricular Rate 84 BPM MUSE GHP Atrial Rate 84 BPM MUSE GHP P-R Interval 144 ms MUSE GHP QRS Duration 96 ms MUSE GHP QT 366 ms MUSE GHP QTc 432 ms MUSE GHP P [place] 44 degrees MUSE GHP R [place] 41 degrees MUSE GHP T [place] -33 degrees MUSE GHP Specimen (Source) Anatomical Collection Method Collection Time Re ceived Time Location / / Volume Laterality 04/29/2011 7:58 PM SUPERVISOR BOAT OUTFITTING Narrative MUSE GHP - 07/31/2019 4:26 PM CDT Sinus rhythm Small inferior Q's Borderline ECG ?? No previous ECGs available Procedure Note Epic, Internal Processing - 08/05/2019Fo rmatting of this note might be different from the original. 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 Type II or unspecified type diabetes jasen litus with renal manifestations, uncontrolled Type II or unspecified type diabetes jasen litus with renal manifestations, uncontrolled(250.42) (HRC) Type II or unspecified type diabetes jasen litus with renal manifestations, uncontrolled Coronary atherosclerosis of unspecified type of vessel, [place] or graft (HRC) Coronary atherosclerosis of unspecified type of vessel, [place] or graft Laboratory examination, unspecified Acute myocardial infarction, unspecified site, episode of care unspecified Pure hyperglyceridemia (HRC) Pure hyperglyceridemia Plan of Care - Laura Valentine RN - 05/01/2011 7:40 AM CST Problem: Cardiac Cath/Percutaneous Coronary Intervention (Adult) Goal: Prevent/Manage Potential Problems Signs and symptoms of listed problems will be absent or manageable. Outcome: Absent and Monitoring O: Patient will have no bleeding will tolerate off of bedrest. D: Patient off bedrest at 2100. Sat at edge of bed without dizziness. A: BP checked. Same as supine. Up to bathroom without difficulty. Had BM. Walked around entire unit of 2n/s. R: Patient groin remains soft. Educated on groin check and new medications. Allowed patient to sleepas much as possible. Groin remains soft, open to air. Pulses palpable in feet. documented in this encounter Care Teams Glass Calibrator Relationship Specialty Start Date End Date Rolando Lopez DO PCP - General 12/23/10 05/16/12 [address] [place] [id number] documented as of this encounter
--- OUTSIDE RECORDS SUMMARY | 2022-02-12 12:15 | XMS_ITS | Encounter Summary ---
:1970 Author Organization [facility] Address [address] [place] [address] Care Team Providers Name Role Phone Lilian Persaud DO Primary Care Provider Reason for Visit Reason Comments Refill Encounter Details Date Type Department Care Team Description 06/09/2011 Refill [facility] Lilian Persaud, Refill [address] [address] [place] [address] [place] [address] [phone] (Wo rk) Social History Tobacco Use Types Packs/Day Years Used Date Smoking Tobacco: Never Assessed Sex Assigned at Date Recorded Not on file documented as of this encounter Nursing Notes Eliana Kumar RN - 06/11/2011 10:54 AM CST Pt called and new rx faxed with # 90 pills per his request ok per Vanessa KING Vanessa Mayo PA-C - 06/11/2011 10:20 AM CST valentin Saavedraay to refill Plavix 75 mg, 1 tablet daily with 11 refills. Please see if he would like a 30 day or 90 day prescription, thanks! Herlinda Felder HUC - 06/11/2011 9:49 AM CST Routing message to Vanessa Ram in cardiology to review refill request on Plavix. D CUTTER Lilian Persaud DO - 06/11/2011 9:44 AM CST diabetes med and cholesterol med refilled. Plavix refill needs to go to cardiology. D CUTTER Sarah Leon - 06/10/2011 8:[address] Persaud to review refills of metformin, fenofibrate, plavix. plavix is not on RN list of refills. pt recently seen by cardiology. due for labs - orders in computer documented in this encounter Plan of Treatment Not on filedocumented as of this encounter Visit Diagnoses Not on filedocumented in this encounter Care Teams Marketing Representative Relationship Specialty Start Date End Date Lilian Persaud DO PCP - General 12/23/10 05/16/12 1415 [place] [id number] documented as of this encounter
--- OUTSIDE RECORDS SUMMARY | 2022-02-12 12:15 | XMS_ITS | Encounter Summary ---
:1970 Author Organization [facility] Address [address] [place] [address] Care Team Providers Name Role Phone Lilian Persaud DO Primary Care Provider Reason for Visit Reason Comments Patient Calling Back Encounter Details Date Type Department Care Team Description 06/11/2011 Telephone [facility] Lilian Persaud DO Patient Calling Back Medicine [id number] [facility] [address] [place] [address] [place] [address] [phone] Social History Tobacco Use Types Packs/Day Years Used Date Smoking Tobacco: Never Assessed Sex Assigned at Date Recorded Not on file documented as of this encounter Nursing Notes Jacqueline Vizcaino - 06/15/2011 2:35 PM CST pt informed of the dose changes and will f/u on Tuesday with his readings-pt understood changes and had no further questions. LAYING MACHINE OPERATOR Lilian Persaud DO - 06/15/2011 2:21 PM CST I was able to speak with lens and frames prescription clerk buckle and button maker who rec increase Lantus from 50 to 60 units subcutaneous q HS. Also, increase Novolog from 12 units to 20 units TID with meals. Have him call Tuesday am with BS readings. Pt will get a call to see endocrine early than his July appointment. LAYING MACHINE OPERATOR Marci Oliveira RN - 06/15/2011 10:52 AM CST Pt calling back with update on BS and medication dosing; pt has been taking Novolog 12 U TID and Lantus 50U at HS. 06/13: BS at 0700 304, 5p 320, and 10p 393, 06/14: BS 309,321,360 (same testing times) and today 06/15 thus far BS was 285. to PCP to review and advise LAYING MACHINE OPERATOR Andie Adams - 06/15/2011 10:46 AM CST Wants to give blood sugar readings Lilian Castillo DO - 06/15/2011 9:55 AM CST Please call and see how Blood sugars are doing and confirm doses of Lantus and Novolog. Thanks Lilian Castillo DO - 06/12/2011 2:43 PM CST spoke with patient. He switched to a new Lantus pen and took 45 units last night, and fasting glucose 259 this am. Much better than previous 300's (315 yesterday). I suspect previous Lantus pen not effective/inactive, since new pen had much better decrease glucose today without any dietary changes. Patient will increase Lantus 50 units tonight and then 52 units at HS 06/13 if fasting blood sugar is still over 150 tomorrow morning. CPT with Novolog 12 units TID with meals. Pt will call office Tuesday,06/15 with blood sugar readings, adjustment insulin. I also discussed endocrine referral for pt to help manage DM. Insurance won't cover diabetes educators. Pt agreed. Order in EMR, pt expecting call to schedule consult in next couple days. Lilian Persaud DO - 06/11/2011 3:53 PM CST spoke with pt. No change in diet or anything in his life. Pt will open new pen Lantus and try tonight. I will call him tomorrow to see what his blood sugars are. Pt will hold Novolog if low BS from newLantus pen. LAYING MACHINE OPERATOR Maximilian Ag - 06/11/2011 11:29 AM CST Patient calling to report recent blood sugars Has been taking Lantus and Novonlog and Metformin Numbers are on 06/08 AM 295 PM 315 Hs 340 On 06/09 AM 295 PM 393 HS 410 On 06/10 AM 300 PM 320 HS 392 On 06/11 AM 315 PLease call with plan of care Call [phone] Maximilian Ag - 06/11/2011 11:26 AM CST LAYING MACHINE OPERATOR Lori Winkler - 06/11/2011 11:21 AM CST Non -Symptom Message from Front Line Primary Care Provider: Lilian Persaud DO Message: calling in numbers from another blood test LAYING MACHINE OPERATOR documented in this encounter Plan of Treatment Not on filedocumented as of this encounter Visit Diagnoses Diagnosis Type II or unspecified type diabetes jasen litus without mention of complication, uncontrolled - Primary documented in this encounter Care Teams Foxpro Developer Relationship Specialty Start Date End Date Lilian Persaud DO PCP - General 12/23/10 05/16/12 1415 [place] [id number] documented as of this encounter
--- OUTSIDE RECORDS SUMMARY | 2022-02-12 12:15 | XMS_ITS | Encounter Summary ---
:1970 Author Organization [facility] Address [address] [place] [address] Care Team Providers Name Role Phone Lilian Persaud DO Primary Care Provider Reason for Visit Reason Comments Diabetes Encounter Details Date Type Department Care Team Description 06/29/2011 [facility] Lilian Persaud DO Diabetes [address] [address] [place] [address] [place] [address] [phone] (Wo rk) Social History Tobacco Use Types Packs/Day Years Used Date Smoking Tobacco: Never Assessed Sex Assigned at Date Recorded Not on file documented as of this encounter Nursing Notes Freya Hess - 06/29/2011 1:26 PM CST Notified pt. of notes below. Pt. understood and acknowledged information. And confirmed that he willbe going to his Endocrine appt on 07/05 at 4:30pm RAL SCIENCES MANAGER Lilian Persaud DO - 06/29/2011 12:57 PM CST Please have him increase Lantus to 80 units subcutaneous q HS. Increase Novolog to 30 units TID with meals. He can stay at that dose until he sees Endocrine in 1 week. Pt has appt with endocrine (Wednesday 07/05 at 4:30p) in a week, that should really help to have them look at DM management and see what changes will help him. There are medications that can cause insulinresistance, which may be a factor with sugar management. RAL SCIENCES MANAGER Sarah Leon - 06/29/2011 10:28 AM CST pt calling with blood sugars: taken before breakfast, between 4-5pm and at bedtime: Tuesday 231, 283,341 Sat 235, 310, 343 Sun 254, 325, 355 Mon 201, 279, 320 and this morning 191. says he is feeling 'ok, but I wish my sugars would come down.' say insulin doses were adjusted last week. please let him know if you have any new instructions or not RAL SCIENCES MANAGER Jo Cruz - 06/29/2011 10:21 AM CST Non -Symptom Message from Front Line Primary Care Provider: Lilian Persaud DO Message: Pt requesting to speak with a nurse regarding his diabetes. RAL SCIENCES MANAGER documented in this encounter Plan of Treatment Not on filedocumented as of this encounter Visit Diagnoses Diagnosis Type II or unspecified type diabetes jsaen litus without mention of complication, uncontrolled - Primary documented in this encounter Care Teams Car Detailer Relationship Specialty Start Date End Date Lilian Persaud DO PCP - General 12/23/10 05/16/12 1415 [place] [id number] documented as of this encounter
--- OUTSIDE RECORDS SUMMARY | 2022-02-12 12:16 | XMS_ITS | Encounter Summary ---
:1970 [facility] Address [address] [place] [address] Care Team Providers Name Role Phone Rolando Lopez DO Primary Care Provider Reason for Visit Reason Comments Refill Encounter Details Date Type Department Care Team Description 03/11/2011 Refill [facility] Rolando Lopez DO Refill [address] [address] [place] [address] [place] [address] [phone] (Wo rk) Social History Tobacco Use Types Packs/Day Years Used Date Smoking Tobacco: Never Assessed Sex Assigned at Date Recorded Not on file documented as of this encounter Nursing Notes Shaniqua Pittman RN - 03/11/2011 4:08 PM CST Prescription Refills Approved Prescriptions Disp Refills ??? gemfibrozil (LOPID) 600 mg tablet 60 tablet 0 Sig: TAKE 1 TABLET BY MOUTH TWICE DAILY 30 MINUTES BEFORE A MEAL FOR HYPERTRIGLYCERIDEMIA Authorizing Provider: ROLANDO LOPEZ Ordering User: SHANIQUA PITTMAN Last labs and office visit 01/22/2011. Recommended follow up in 6 weeks. Appt scheduled with PCP on 03/17/2011. documented in this encounter Plan of Treatment Not on filedocumented as of this encounter Visit Diagnoses Not on filedocumented in this encounter Care Teams Digital Content Coordinator Relationship Specialty Start Date End Date Rolando Lopez DO PCP - General 12/23/10 05/16/12 1415 [place] [id number] documented as of this encounter
--- OUTSIDE RECORDS SUMMARY | 2022-02-12 12:16 | XMS_ITS | Encounter Summary ---
:1970 Author Organization [facility] Address [address] [place] [address] Care Team Providers Name Role Phone Lilian Persaud DO Primary Care Provider Reason for Visit Reason Comments Refill Encounter Details Date Type Department Care Team Description 03/25/2011 Refill [facility] Lilian Persaud, Refill [address] [address] [place] [address] [place] [address] [phone] (Wo rk) Social History Tobacco Use Types Packs/Day Years Used Date Smoking Tobacco: Never Assessed Sex Assigned at Date Recorded Not on file documented as of this encounter Nursing Notes Herlinda Lucio HUC - 03/26/2011 11:10 AM CST Patient informed INSTRUCTOR Gagandeep Hinojosa MD - 03/25/2011 5:43 PM CST Call pt. Dose limited to 1000 mg BID for 30 days to see if med can be tolerated INSTRUCTOR Judy Pittman RN - 03/25/2011 3:26 PM CST UNABLE TO REFILL PER MEDICAL REFILL PROTOCOL Comment: Glucophage discontinued on 03/17/11 for adverse reaction. Per phone note from today, pt switched to Januvia but blood sugar has been steadily climbing. Recommended to re-start metformin 1,000 mg daily, then bid. Pt agreed, but needs new Rx. To Dr. Hinojosa per distribution list. documented in this encounter Plan of Treatment Not on filedocumented as of this encounter Visit Diagnoses Not on filedocumented in this encounter Care Teams Negative Cleaner Relationship Specialty Start Date End Date Lilian Persaud DO PCP - General 12/23/10 05/16/12 [address] [place] [id number] documented as of this encounter
--- OUTSIDE RECORDS SUMMARY | 2022-02-12 12:16 | XMS_ITS | Encounter Summary ---
:1970 Author Organization [facility] Address [address] [place] [address] Care Team Providers Name Role Phone Lilian Persaud DO Primary Care Provider Reason for Visit Reason Comments RESULTS, TEST Encounter Details Date Type Department Care Team Description 02/03/2011 Telephone [facility] Lilian Persaud DO RESULTS, TEST [address] [facility] [address] [address] [place] [address] [place] [address] [phone] (Wo rk) Social History Tobacco Use Types Packs/Day Years Used Date Smoking Tobacco: Never Assessed Sex Assigned at Date Recorded Not on file documented as of this encounter Nursing Notes Cindy Landers - 02/05/2011 3:11 PM CDT Talked to pt with info below. Pt stated he already picked up rx and agreed with plan below. Lilian Persaud DO - 02/03/2011 1:23 PM CDT Please let patient know that I would like him to start on another cholesterol medication in additionto his gemfibrozil and fish oil that he is already taking. His results are still quite elevated, I did some research to figure out the best medication that on that would have the least interaction withall of his other medications. I would like to start him on fenofibrate 160 mg daily, take with meals. Patient will need blood work in a few weeks at his appointment in February. New prescription faxed to [facility] in [place]. documented in this encounter Plan of Treatment Not on filedocumented as of this encounter Visit Diagnoses Not on filedocumented in this encounter Care Teams Parcel Wrapper Relationship Specialty Start Date End Date Lilian Persaud DO PCP - General 12/23/10 05/16/12 1415 [place] [address] documented as of this encounter
--- OUTSIDE RECORDS SUMMARY | 2022-02-12 12:16 | XMS_ITS | Encounter Summary ---
:1970 Author Organization [facility] Address [address] [place] [address] Care Team Providers Name Role Phone Lilian Persaud DO Primary Care Provider Reason for Visit Reason Comments Medication Questions Encounter Details Date Type Department Care Team Description 01/08/2011 Refill [facility] Lilian Persaud DO Medication Questions [address] [address] [place] [address] [place] [address] [phone] (Wo rk) Social History Tobacco Use Types Packs/Day Years Used Date Smoking Tobacco: Never Assessed Sex Assigned at Date Recorded Not on file documented as of this encounter Nursing Notes Lilian Persaud DO - 01/08/2011 3:50 PM CDT clarified directions with pt. Cordelia Leyva RN - 01/08/2011 3:24 PM CDT Please check and confirm dosage of Metformin. Maximilian Ag - 01/08/2011 3:20 PM CDT patient calling states now taking Metformin 500mg 2 tabs at AM,lunch and dinner so 6 tabs daily Requesting refill and order to Scott Tavarez to indicate change in dosing Last seen 12/23/10 Nayla Sesay - 01/08/2011 3:11 PM CDT Non -Symptom Message from Front Line Primary Care Provider: Lilian Persaud DO, DO Message: Pt calling to ask why metformin was not refilled documented in this encounter Plan of Treatment Not on filedocumented as of this encounter Visit Diagnoses Diagnosis DM (diabetes mellitus) type II uncontrol led with renal manifestation - Primary Type II or unspecified type diabetes jasen litus with renal manifestations, uncontrolled documented in this encounter Care Teams Mold Filler Plastic Dolls Relationship Specialty Start Date End Date Lilian Persaud DO PCP - General 12/23/10 05/16/12 1415 [place] [id number] documented as of this encounter
--- OUTSIDE RECORDS SUMMARY | 2022-02-12 12:16 | XMS_ITS | Encounter Summary ---
:1970 Author Organization [facility] Address [address] [place] [address] Care Team Providers Name Role Phone Lilian Persaud DO Primary Care Provider Reason for Visit Reason Comments Diabetes Vomiting SWELLING, FOOT Encounter Details Date Type Department Care Team Description 03/17/2011 Office Visit Lilian Camejo, Paolo franco isorders of lipoid metabolism (Primary Dx); Medicine DO DM w/o complication type II, uncontrolle d; [address] Vomiting alone; [place] [address] [place], [place] Plantar wart [phone] [id number] Social History Tobacco Use Types Packs/Day Years Used Date Smoking Tobacco: Never Assessed Sex Assigned at Date Recorded Not on file documented as of this encounter Last Filed Vital Signs Vital Sign Reading Time Taken Comments Blood Pressure 112/64 03/17/2011 1:54 PM DEICER KIT ASSEMBLER Pulse 70 03/17/2011 1:54 PM DEICER KIT ASSEMBLER Temperature - - Respiratory Rate - - Oxygen Saturation - - Inhaled Oxygen Concentration - - Weight 101.6 kg (224 lb) 03/17/2011 1:54 PM DEICER KIT ASSEMBLER Height - - Body Mass Index 32.6 01/22/2011 11:08 AM CDT documented in this encounter Patient Instructions Patient InstructionsLilian Persaud DO - 03/17/2011 3:08 PM CST Come in fasting for cholesterol and other blood work in the next 1-2 weeks. Follow up 2 weeks for plantar wart treatment Follow up 1 month for diabetes check ER KIT ASSEMBLER documented in this encounter Progress Notes Lilian Persaud DO - 03/17/2011 6:13 PM CST Clinic Visit Chief Complaint Patient presents with ??? Diabetes ??? Emesis (VOMITING) x a couple of month ??? Foot Swelling Spot, wart concern SUBJECTIVE: Patient also has a concern about a spot on his left toe is noted for the past couple of months. No bleeding. Patient has a history of warts. Patient would like me to check it out. No treatment at this point. Patient presents for follow up of Type 2 Diabetes. Patient has been monitor his blood sugars and his fasting sugars have not been over 200 for the past2 months. Lowest blood sugar 145. Average 150-170 per blood pressure log. Patient takes metformin 500 mg 2 tablets in the morning, 2 tablets at lunch and one tablet at dinner. He also takes to be a 50 mg one in the morning. Glipizide 10 mg in the morning. Patient reports the past 2-3 months he has haddaily vomiting with gagging and small amount of vomitus after meals and before breakfast. Patient denies any feeling of food getting stuck in his esophagus. Denies abdominal pain. Minimal nausea occasionally. Patient says he gets up in the morning and vomits a small amount before taking his medications or after taking his medications. He has a light breakfast with a piece of toast or fruit about hourafter taking his meds. Patient associates his vomiting with starting of his diabetes medications. Diabetes: Lab Results Component Value Date/Time HGB A1C 9.8* 01/22/2011 11:58 Hemoglobin A1C 10.0* 11/25/2010 16:18 Hyperlipidemia: Patient has been taking fenofibrate and Lopid on a regular basis. He is due for fasting cholesterol. Lab Results Component Value Date/Time Cholesterol 276* 01/22/2011 11:58 HDL Cholesterol 32* 01/22/2011 11:58 Triglycerides 309* 01/22/2011 11:58 LDL Calculated 182* 01/22/2011 11:58 LDL Direct 159* 11/30/2000 11:20 Lab Results Component Value Date/Time Alk Phos 63 03/06/2009 19:50 Aspartate Aminotransferase 27 01/22/2011 11:58 Alanine Aminotransferase 41 01/22/2011 11:58 Evaluations: Lab Results Component Value Date/Time HGB A1C 9.8* 01/22/2011 11:58 Hemoglobin A1C 10.0* 11/25/2010 16:18 HGB A1C See Note 11/25/2010 16:18 HGB A1C 5.4 03/23/2006 13:50 Lab Results Component Value Date/Time Microalbumin Urine 17.0 12/11/2010 15:13 Lab Results Component Value Date/Time Sodium 133* 01/22/2011 11:58 Potassium 4.8 01/22/2011 11:58 Chloride 99 01/22/2011 11:58 Bicarbonate 24 01/22/2011 11:58 History Social History ??? Marital Status: Spouse [...] No narrative on file Current outpatient prescriptions Medication Sig Dispense Refill ??? aspirin 81 mg tablet Take 1 tablet by mouth daily (every 24 hours). ??? divalproex (DEPAKOTE) 500 mg EC tablet Take 2,000 mg by mouth DAILY MORNING LAB. Do not cut/crush/chew. Take with food. ??? Fenofibrate 160 mg tablet Take 160 mg by mouth daily (every 24 hours). Indications: HYPERTRIGLYCERIDEMIA 30 tablet 1 ??? DISCONTD: Fenofibrate 160 mg tablet Take 160 mg by mouth daily (every 24 hours). Indications: HYPERTRIGLYCERIDEMIA 30 tablet 1 ??? gemfibrozil (LOPID) 600 mg tablet Take 1 tablet by mouth 2 times daily. Take 1/2 hours before food. 60 tablet 2 ??? DISCONTD: gemfibrozil (LOPID) 600 mg tablet TAKE 1 TABLET BY MOUTH TWICE DAILY 30 MINUTES BEFOREA MEAL FOR HYPERTRIGLYCERIDEMIA 60 tablet 0 ??? glipiZIDE (GLUCOTROL XL) 10 mg 24 hr tablet TAKE ONE TABLET BY MOUTH EVERY DAY DO NOT CUT/CRUSH/CHEW 90 tablet 1 ??? DISCONTD: JANUVIA 50 mg tablet TAKE 1/2 TO 1 TABLET BY MOUTH DAILY. 90 tablet 1 ??? lisinopril (PRINIVIL, ZESTRIL) 5 mg tablet Take 1 tablet by mouth daily (every 24 hours). Indications: HYPERTENSION 90 tablet 1 ??? DISCONTD: metFORMIN (GLUCOPHAGE) 500 mg tablet Take 1-2 tablets as instructed. Take 2 tabs po q breakfast and lunchtime and 1 tab po at dinnertime. Indications: TYPE 2 DIABETES MELLITUS 150 tablet 0 ??? omega-3 fatty acids-fish oil 340-1,000 mg capsule Take 2 g by mouth daily (every 24 hours). Indications: HYPERTRIGLYCERIDEMIA 100 capsule 3 ??? risperiDONE (RISPERDAL) 4 mg tablet Take 4 mg by mouth daily (every 24 hours). ??? sitagliptan (JANUVIA) 100 mg tablet Take 1 tablet by mouth daily (every 24 hours). Indications: TYPE 2 DIABETES MELLITUS 1 tablet 0 ??? DISCONTD: tadalafil (CIALIS) 10 mg tablet Take 1 tablet by mouth as needed for Erectile Dysfunction. Take 30 minutes prior to sexual activity. 30 tablet 5 Allergies Allergen Reactions ??? Haloperidol LW Reaction: shock ??? Thiothixene LW Reaction: Muscle spasm OBJECTIVE: Filed Vitals: 03/17/11 1354 BP: 112/64 Pulse: 70 Weight: 224 lb (101.606 kg) General: patient in NAD. Alert and oriented x3 CV: RRR without murmurs, rubs, or gallops. Resp: Clear to auscultation without crackles, wheezes or distress. Abdomen: The abdomen was flat, soft and nontender without guarding rebound or masses or organomegaly. Bowel sounds normal. Lower Extremities: No edema. Skin: 1- 4 mm, round, verrucous papule on plantar surface of left 1st toe. Psychiatric: Alert & oriented with normal affect and insight. Patient does not appear depressed or anxious. Timur was seen today for diabetes, emesis (vomiting) and foot swelling. Diagnoses and associated orders for this visit: Dyslipidemia #*lw 3 - gemfibrozil (LOPID) 600 mg tablet; Take 1 tablet by mouth 2 times daily. Take 1/2 hours before food. - Fenofibrate 160 mg tablet; Take 160 mg by mouth daily (every 24 hours). Indications: HYPERTRIGLYCERIDEMIA - Alanine Aminotransferase; Future - Aspartate Aminotransferase; Future - Cholesterol Fraction-LDLD If Trig High; Future Dm w/o complication type ii, uncontrolled - sitagliptan (JANUVIA) 100 mg tablet; Take 1 tablet by mouth daily (every 24 hours). Indications: TYPE 2 DIABETES MELLITUS - Electrolytes (NA, K, CL, Bicarb); Future - Glucose; Future - Hemoglobin A1C Glycosylated; Future Vomiting alone Plantar wart - DESTRUCT BENIGN SKIN LESIONS UP TO 14 [id number] 1. Vomiting may be a side effect of metformin, since it is high on the list of adverse effects. Recommend holding metformin. Patient says he has done well with Januvia, which will I increase to 100 mg daily. Continue present treatment with glipizide. Check fasting cholesterol liver function tests, electrolytes and glucose within the next week to 2 weeks, since he is due. 2. Multiple therapies and alternatives discussed for plantar wart treatment, including [id number] therapies, cantharidin, injections, cryotherapy and salicylic acid. 3. We opted for cryotherapy as follows: 3x 5 second applications of liquid nitrogen were performed with freeze and the cycle. Band-Aid applied. 4. Warnings regarding pain and blister formation given. Patient advised with uncontrolled diabetes, he needs to keep a careful watch. Any signs of infection he is to return to the office for evaluation. 5. Verbal patient instruction given. 6. Follow up in 2 weeks 7. I will communicate test results when they're available. 8. Patient followup in one month for diabetes check, and will have hemoglobin A1c done prior to appointment. 9. Patient discharged in stable condition. 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
--- OUTSIDE RECORDS SUMMARY | 2022-02-12 12:16 | XMS_ITS | Encounter Summary ---
:1970 Author Organization [facility] [employer] [employer] Address [address] [place] [address] Care Team Providers Name Role Phone Lilian Persaud DO Primary Care Provider Reason for Visit Reason Comments Follow-up Encounter Details Date Type Department Care Team Description 01/22/2011 Office Visit [facility] Lilian Persaud, DM (ralph betes mellitus) type II uncontrolled with renal manifestation (Primary Dx); Medicine DO Hypertriglyceridemia; [address] Erectile dysfunction; [place] [address] [place], [place] Tobacco use disorder; [phone] [id number] Chest pain Social History Tobacco Use Types Packs/Day Years Used Date Smoking Tobacco: Never Assessed Sex Assigned at Date Recorded Not on file documented as of this encounter Last Filed Vital Signs Vital Sign Reading Time Taken Comments Blood Pressure 118/78 01/22/2011 11:08 AM CDT Pulse 104 01/22/2011 11:08 AM CDT Temperature - - Respiratory Rate - - Oxygen Saturation - - Inhaled Oxygen Concentration - - Weight 98.4 kg (217 lb) 01/22/2011 11:08 AM CDT Height 176.5 cm (5' 9.5) 01/22/2011 11:08 AM CDT Body Mass Index 31.59 01/22/2011 11:08 AM CDT documented in this encounter Patient Instructions Patient InstructionsLilian Persaud DO - 01/22/2011 11:38 AM CDT Continue treatment with your regular dose of metformin, glipizide XL for diabetes. Added on Januvia 25mg daily for one week, then call me with your blood sugar readings. We will discuss whether to increase your dose. Flu shot given today. Referral to cardiology. Schedule appointment. Blood work done today, I will mail you results next week and call with any concerns. Eat healthy and get exercise. Continue to cut back on cigarette smoking. documented in this encounter Progress Notes Lilian Persaud DO - 01/22/2011 4:57 PM CDT SUBJECTIVE: History of present illness: 41 y.o. male Presents for diabetes management and medication refills. Patient has been checking his blood sugars his fasting blood sugars range 150- 190, his fasting was 184 this morning. His evening blood sugars are in the 200s usually around 210-220. Patient did not bring his blood pressure log in today. Patient takes total dose of metformin 2500 mg daily without any side effects. Patient has also been taking his fish oil for high triglycerides. Patient denies any side effects from his medications. Patient denies any history of pancreatitis. Patient's last cxtdfinymvB1s was 10.0. Patient has a history of elevated liver function tests, he is also on multiple bipolarmedications that his psychiatrist does not want to change. He is frustrated that he is probably gotten his diabetes from the psychiatric medications. He says they do work for him. Patient also requestsa refill of Cialis which has been getting from his psychiatrist, for erectile dysfunction. Patient says the prescription works for him. He says he is a newly wed, having recently gotten . Patient still gets an occasional chest pain right in the central region of his chest beneath his sternum that lasts for a few minutes to a few hours and resolves. He thinks it may be related to his smoking. Patient did have cardiac workup about a year ago. 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 Ongoing for a several weeks. No associated symptoms. Pt saws the drug literature he has on his meds, says that chest pain is a side affect of a few of them. no gerd symptoms. Patient has cut back on his cigarettes to a pack per day down to 10-15 per day. He is trying and hopeful that he will quit by the end of the year. Lab Results Component Value Date/Time Hemoglobin A1C 10.0* 11/25/2010 16:18 HGB A1C See Note 11/25/2010 16:18 HGB A1C 5.4 03/23/2006 13:50 HGB A1C 6.6* 10/04/2005 12:30 Past Medical History Diagnosis Date ??? Tobacco [...] II, uncontrolled 12/11/2010 ??? Erectile dysfunction 01/22/2011 No past surgical history on file. No family history on file. History Social History ??? Marital Status: Single Spouse Name: N/A Number of Children: N/A ??? Years of Education: N/A Occupational History ??? Not on file. Social History Main Topics ??? Smoking status: Current Everyday Smoker -- 0.7 packs/day for 25 years Types: Cigarettes ??? [...] Do not cut/crush/chew. Take with food. ??? DISCONTD: fluconazole (DIFLUCAN) 150 mg tablet Take 1 tablet by mouth once a week. 4 tablet 0 ??? gemfibrozil (LOPID) 600 mg tablet Take 1 tablet by mouth 2 times daily (before meals). Take 1/2 hours before food. Indications: HYPERTRIGLYCERIDEMIA 60 tablet 1 ??? glipiZIDE (GLUCOTROL XL) 10 mg 24 hr tablet Take 1 tablet by mouth daily (every 24 hours). Do not cut/crush/chew Indications: TYPE 2 DIABETES MELLITUS 30 tablet 1 ??? DISCONTD: lisinopril (PRINIVIL, ZESTRIL) 5 mg tablet Take 1 tablet by mouth daily (every 24 hours). Indications: HYPERTENSION 30 tablet 5 ??? metFORMIN (GLUCOPHAGE) 500 mg tablet Take 1-2 [...] by mouth daily (every 24 hours). ??? sitaGLIPtin (JANUVIA) 25 mg tablet Take 1-2 tablets by mouth daily (every 24 hours). Indications: TYPE 2 DIABETES MELLITUS 30 tablet 0 Allergies Allergen Reactions ??? Haloperidol LW Reaction: shock ??? Thiothixene LW Reaction: Muscle spasm ROS: otherwise negative with the exception of positives in HPI. No chest pain or shortness of breathcurrently. OBJECTIVE: Filed Vitals: 01/22/11 1108 BP: 118/78 Pulse: 104 Height: 5' 9.5 (176.5 cm) Weight: 217 lb (20721 g) General: Patient alert, in NAD. Left eye stye still present, improved. Extremities: No edema. CV: RRR without murmurs, rubs or gallops. Resp: Clear to auscultation without crackles, wheezes or distress. Abdomen: bowel sounds present, Soft, non-tender. Neuro: CN II-XII, motor & sensory function all intact. Psychiatric: Alert & oriented with normal affect and insight, does not appear depressed or anxious. Timur was seen today for follow-up. Diagnoses and associated orders for this visit: Dm (diabetes mellitus) type ii uncontrolled with renal manifestation - lisinopril (PRINIVIL, ZESTRIL) 5 mg tablet; Take 1 tablet by mouth daily (every 24 hours). Indications: HYPERTENSION - sitaGLIPtin (JANUVIA) 25 mg tablet; Take 1-2 tablets by mouth daily (every 24 hours). Indications:TYPE 2 DIABETES MELLITUS Hypertriglyceridemia Erectile dysfunction - tadalafil (CIALIS) 10 mg tablet; Take 1 tablet by mouth as needed for Erectile Dysfunction. Take 30 minutes prior to sexual activity. Tobacco abuse #*lw 1 Chest pain check fasting cholesterol glucose AST ALT hemoglobin A1c electrolytes and creatinine today. discussed that blood sugars are not in appropriate range, needs better control. Patient quite adamant about not using a medication that requires a needle. Patient at max out on dose of glipizide as well as metformin. Patient will try Januvia 25 milligrams daily and call me with his blood sugars in oneweek. He will call sooner if he has any side effects from medication. 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 Patient given Cialis. Patient encouraged to quit smoking, advised of potential health risks. Pt referred to Cardiology for recommendations on intermittent chest pain issues with history of Mod RCA CAD. Follow up in 6 weeks. Pt dc'd in stable condition. documented in this encounter Plan of Treatment Not on filedocumented as of this encounter Visit Diagnoses Diagnosis DM (diabetes mellitus) type II uncontrol led with renal manifestation - Primary Type II or unspecified type diabetes jasen litus with renal manifestations, uncontrolled Hypertriglyceridemia (HRC) Pure hyperglyceridemia Erectile dysfunction Impotence of organic origin Tobacco use disorder (HRC) Tobacco use disorder Chest pain Chest pain, unspecified documented in this encounter Care Teams Pre Kindergarten Teacher Relationship Specialty Start Date End Date Lilian Persaud DO PCP - General 12/23/10 05/16/12 [address] [place] [id number] documented as of this encounter
--- OUTSIDE RECORDS SUMMARY | 2022-02-12 12:16 | XMS_ITS | Encounter Summary ---
:1970 Author Organization [employer] Address [address] [place] [address] Care Team Providers Name Role Phone Lilian Persaud DO Primary Care Provider Reason for Visit Reason Comments Prior Authorization Request Encounter Details Date Type Department Care Team Description 01/26/2011 Telephone [facility] Lilian Persaud, A uthorization Medicine DO Request [address] [address] [place] [address] [place], [place] [phone] [id number] Social History Tobacco Use Types Packs/Day Years Used Date Smoking Tobacco: Never Assessed Sex Assigned at Date Recorded Not on file documented as of this encounter Nursing Notes Adeola Wall - 01/26/2011 3:38 PM CDT PA will be faxed once signature is obtained. Adeola Wall - 01/26/2011 3:14 PM CDT i called number and they are faxing over prior auth form Lilian Persaud DO - 01/26/2011 12:52 PM CDT Yes, pt uncontrolled on max dose Metformin and Glipizide with co-morbid high cholesterol and historyof elevated LFTs. Adeola Wall - 01/26/2011 11:32 AM CDT ok for pa? Adeola Wall - 01/26/2011 11:32 AM CDT PRIOR AUTHORIZATION OR CHANGE MEDICATIONS? Comment: pa or change meds [facility] phone [phone] Pharmacy Fax# or Address: fax [phone] Clinician Name: Cori Drug Name/Strength: Januvia 25mg tablets #30 Sig: take 1-2 tablets po daily Formulary Alternative: none given Insurance Carrier: *ECODE documented in this encounter Plan of Treatment Not on filedocumented as of this encounter Visit Diagnoses Not on filedocumented in this encounter Care Teams Mine Engineering Supervisor Relationship Specialty Start Date End Date Lilian Persaud DO PCP - General 12/23/10 05/16/12 [address] [place] [id number] documented as of this encounter
--- OUTSIDE RECORDS SUMMARY | 2022-02-12 12:16 | XMS_ITS | Encounter Summary ---
:1970 Author Organization [employer] Address [address] [place] [address] Care Team Providers Name Role Phone Lilian Persaud DO Primary Care Provider Reason for Visit Reason Comments Diabetic Concern Encounter Details Date Type Department Care Team Description 03/25/2011 Telephone [facility] Lilian Persaud, Diabetic Concern [address] [address] [place] [address] [place] [address] [phone] (Wo rk) Social History Tobacco Use Types Packs/Day Years Used Date Smoking Tobacco: Never Assessed Sex Assigned at Date Recorded Not on file documented as of this encounter Nursing Notes Gagandeep Hinojosa MD - 03/25/2011 11:41 PM CST Done Nani Rojas LPN - 03/25/2011 11:08 AM CST Pt notified as advised. Expresses understanding. States is out of Metformin, so, requests refill to [facility] in [place]. Gagandeep Sosa MD - 03/25/2011 10:53 AM CST Call pt. Could restartr metformin 1000 mg daily to start, then BID. If vomiting resumes, discontinuemetformin and consider alternative med KROOM SUPERVISOR Marci Oliveira, RN - 03/25/2011 9:58 AM CST Pt calling; pt was seen 03/17/11, reports that his Metformin was dc'd due to vomiting. Pt is now taking Januvia 100 mg QD, all other meds remain the same, he states that as of 03/18/11 he noticed a steady increase to his BS, today at 0940 his BS was 259, which per the pt is the highest it has ever been, pt denies any other sx's, no change in vision, no dizziness, lightheadedness, or weakness. pt would like to know if he should restart his Metformin at a much lower dose to help control his BS or different plan? to clinician per distribution KROOM SUPERVISOR Jessica Tirado - 03/25/2011 9:52 AM CST Front Line Sx Call Primary Felt Hanger: Lilian Persaud DO Reason for call/symptom: pt would like to speak to nurse regarding high blood sugar KROOM SUPERVISOR documented in this encounter Plan of Treatment Not on filedocumented as of this encounter Visit Diagnoses Not on filedocumented in this encounter Care Teams Pie Filling Mixer Relationship Specialty Start Date End Date Lilian Persaud DO PCP - General 12/23/10 05/16/12 [address] [place] [id number] documented as of this encounter
--- OUTSIDE RECORDS SUMMARY | 2022-02-12 12:16 | XMS_ITS | Encounter Summary ---
:1970 Author Organization [facility] Address [address] [place] [address] Care Team Providers Name Role Phone Lilian Persaud DO Primary Care Provider Encounter Details Date Type Department Care Team Description 04/06/2011 Lab Visit [facility] Other disorders of lipoid me tabolism; [address] DM w/o complication type II, uncontrolled [place] [id number] Social History Tobacco Use Types Packs/Day Years Used Date Smoking Tobacco: Never Assessed Sex Assigned at Date Recorded Not on file documented as of this encounter Plan of Treatment Not on filedocumented as of this encounter Procedures Procedure Name Priority Date/Time Associated Diagnosis Comme nts GLUCOSE Routine 04/06/2011 1:53 PM Type II or Results f or this MORTGAGE LOAN SPECIALIST unspecified type procedure a re in diabetes mellitus the result s without mention of section. complication, uncontrolled (HRC) LIPID PANEL AND Routine 04/06/2011 1:53 PM Other disorders of Results for this DIRECT LDL(IF NEEDED) MORTGAGE LOAN SPECIALIST lipoid metabolism p rocedure are in (HRC) the results section. ELECTROLYTE PANEL Routine 04/06/2011 1:53 PM Type II or Resu lts for this MORTGAGE LOAN SPECIALIST unspecified type procedure a re in diabetes mellitus the result s without mention of section. complication, uncontrolled (HRC) HGB A1C Routine 04/06/2011 1:53 PM Type II or Results f or this MORTGAGE LOAN SPECIALIST unspecified type procedure a re in diabetes mellitus the result s without mention of section. complication, uncontrolled (HRC) ALT (SGPT) Routine 04/06/2011 1:53 PM Other disorders of Res ults for this MORTGAGE LOAN SPECIALIST lipoid metabolism procedure are in (HRC) the results section. AST Routine 04/06/2011 1:53 PM Other disorders of Res ults for this MORTGAGE LOAN SPECIALIST lipoid metabolism procedure are in (HRC) the results section. VENIPUNCTURE (SOBEIDA) Routine 04/06/2011 Results for this procedure are i n the results section. documented in this encounter Results (ABNORMAL) Hgb A1c (04/06/2011 1:53 PM MORTGAGE LOAN SPECIALIST) athologist [facility] HGB A1C 9.9 (H) 0.0 - 6.0 % HP CONVERSION Specimen Anatomical Collection Method Collection Time Receive d Time (Source) Location / / Volume Laterality 04/06/2011 1:53 PM 1 8:50 MORTGAGE LOAN SPECIALIST PM MORTGAGE LOAN SPECIALIST Lilian Persaud DO LAB_1 Performing Organization Address [facility] Phon e Number HP CONVERSION (ABNORMAL) GLUCOSE (04/06/2011 1:53 PM MORTGAGE LOAN SPECIALIST) athologist [facility] Lab Glucose 236 (H) 60 - 100 HP CONVERSION mg/dL Specimen Anatomical Collection Method Collection Time Receive d Time (Source) Location / / Volume Laterality 04/06/2011 1:53 PM 1 8:03 MORTGAGE LOAN SPECIALIST PM MORTGAGE LOAN SPECIALIST Narrative HP CONVERSION - 04/06/2011 8:23 PM MORTGAGE LOAN SPECIALIST [place] [address] Lilian Persaud DO LAB_1 Performing Organization Address [facility] Phon e Number HP CONVERSION (ABNORMAL) Electrolyte Panel (04/06/2011 1:53 PM MORTGAGE LOAN SPECIALIST) athologist [facility] Sodium 132 (L) 137 - 147 HP CONVERSION mEq/L Potassium 4.5 3.5 - 5.2 HP CONVERSION mEq/L Chloride 99 98 - 110 HP CONVERSION mEq/L Bicarbonate 25 23 - 33 HP CONVERSION mmol/L Specimen Anatomical Collection Method Collection Time Receive d Time (Source) Location / / Volume Laterality 04/06/2011 1:53 PM 1 8:03 MORTGAGE LOAN SPECIALIST PM MORTGAGE LOAN SPECIALIST Narrative HP CONVERSION - 04/06/2011 8:23 PM MORTGAGE LOAN SPECIALIST Performed at [facility], [address] [place] [address] Lilian Persaud DO LAB_1 Performing Organization Address [facility] Phon e Number HP CONVERSION (ABNORMAL) Lipid Panel and Direct LDL(If Needed) (04/06/2011 1:53 PM MORTGAGE LOAN SPECIALIST) [facility] Method Time Signature Cholesterol 280 (H) 0 - 200 HP CONVERSION mg/dL Triglycerides 384 (H) 0 - 149 HP CONVERSION mg/dL HDL Cholesterol 30 (L) >39 mg/dL HP CONVERSION Cholesterol/HDL 9.3 HP CONVERSION Ratio Screen LDL Calculated 173 (H) 19 - 130 HP CONVERSION mg/dL Length Of Fast 17.0 HP CONVERSION Specimen Anatomical Collection Method Collection Time Receive d Time (Source) Location / / Volume Laterality 04/06/2011 1:53 PM 1 8:03 MORTGAGE LOAN SPECIALIST PM MORTGAGE LOAN SPECIALIST Narrative HP CONVERSION - 04/06/2011 8:23 PM MORTGAGE LOAN SPECIALIST Performed at [facility], [address] [place] [address] Liilan Persaud DO LAB_1 Performing Organization Address [facility] Phon e Number HP CONVERSION AST (04/06/2011 1:53 PM MORTGAGE LOAN SPECIALIST) [facility] Time Signature Aspartate 34 0 - 45 HP CONVERSION Aminotransferase U/L Specimen Anatomical Collection Method Collection Time Receive d Time (Source) Location / / Volume Laterality 04/06/2011 1:53 PM 1 8:03 MORTGAGE LOAN SPECIALIST PM MORTGAGE LOAN SPECIALIST Narrative HP CONVERSION - 04/06/2011 8:23 PM MORTGAGE LOAN SPECIALIST Performed at [facility], [address] [place] [address] Lilian Persaud DO LAB_1 Performing Organization Address [facility] Phon e Number HP CONVERSION ALT (SGPT) (04/06/2011 1:53 PM MORTGAGE LOAN SPECIALIST) [facility] Method Time Signature Alanine 45 4 - 55 HP CONVERSION Aminotransferase U/L Specimen Anatomical Collection Method Collection Time Receive d Time (Source) Location / / Volume Laterality 04/06/2011 1:53 PM 1 8:03 MORTGAGE LOAN SPECIALIST PM MORTGAGE LOAN SPECIALIST Narrative HP CONVERSION - 04/06/2011 8:23 PM MORTGAGE LOAN SPECIALIST Performed at [facility], [address] [place] [address] Lilian Persaud DO LAB_1 Performing Organization Address City/State/ZIP Code Phon e Number HP CONVERSION VENIPUNCTURE ([place]BE[place]) (04/06/2011) athologist Signature Venipuncture Done HP CONVERSION Specimen (Source) Anatomical Location Collection Method / Collectio n Time Received Time / Laterality Volume 04/06/2011 04/06/2011 Narrative HP CONVERSION - 04/06/2011 2:22 PM MORTGAGE LOAN SPECIALIST Performed at [facility], [address] [facility] [place] [address] Lilian Persaud DO LAB_1 Performing Organization Address City/State/ZIP Code Phon e Number HP CONVERSION documented in this encounter Visit Diagnoses Diagnosis 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
--- OUTSIDE RECORDS SUMMARY | 2022-02-12 12:16 | XMS_ITS | Encounter Summary ---
:1970 Author Organization [facility] Address [address] [place] [address] Care Team Providers Name Role Phone Lilian Persaud DO Primary Care Provider Encounter Details Date Type Department Care Team Description 01/22/2011 Lab Visit [facility] Pure hyperglyceridemia; [address] DM w/o complication type II, uncontrolled [place] [id number] Social History Tobacco Use Types Packs/Day Years Used Date Smoking Tobacco: Never Assessed Sex Assigned at Date Recorded Not on file documented as of this encounter Plan of Treatment Not on filedocumented as of this encounter Procedures Procedure Name Priority Date/Time Associated Diagnosis Comme nts GLUCOSE Routine 01/22/2011 11:58 Type II or unspecified R esults for this AM CDT type diabetes mellitus proce dure are in without mention of the resul ts complication, section. uncontrolled (HRC) LIPID PANEL AND Routine 01/22/2011 11:58 Pure hyperglyceridemi a Results for this DIRECT LDL(IF AM CDT procedure are in NEEDED) the results section. CREATININE / GFR Routine 01/22/2011 11:58 Type II or unspecifi ed Results for this AM CDT type diabetes mellitus proce dure are in without mention of the resul ts complication, section. uncontrolled (HRC) ELECTROLYTE PANEL Routine 01/22/2011 11:58 Type II or unspecif ied Results for this AM CDT type diabetes mellitus proce dure are in without mention of the resul ts complication, section. uncontrolled (HRC) HGB A1C Routine 01/22/2011 11:58 Type II or unspecified R esults for this AM CDT type diabetes mellitus proce dure are in without mention of the resul ts complication, section. uncontrolled (HRC) ALT (SGPT) Routine 01/22/2011 11:58 Pure hyperglyceridemia R esults for this AM CDT procedure are i n the results section. AST Routine 01/22/2011 11:58 Pure hyperglyceridemia R esults for this AM CDT procedure are i n the results section. VENIPUNCTURE (SOBEIDA) Routine 01/22/2011 11:52 Pure hyperglyceri demia Results for this AM CDT procedure are i n the results section. documented in this encounter Results (ABNORMAL) Hgb A1c (01/22/2011 11:58 AM CDT) athologist Signature HGB A1C 9.8 (H) 0.0 - 6.0 % HP CONVERSION Specimen Anatomical Collection Method Collection Time Receive d Time (Source) Location / / Volume Laterality 01/22/2011 11:58 01/22/2011 3:40 AM CDT PM CDT Lilian Persaud DO LAB_1 Performing Organization Address City/State/ZIP Code Phon e Number HP CONVERSION (ABNORMAL) Lipid Panel and Direct LDL(If Needed) (01/22/2011 11:58 AM CDT) [facility] gist Method Time Signature Cholesterol 276 (H) 0 - 200 HP CONVERSION mg/dL Triglycerides 309 (H) 0 - 149 HP CONVERSION mg/dL HDL Cholesterol 32 (L) >39 mg/dL HP CONVERSION Cholesterol/HDL 8.6 HP CONVERSION Ratio Screen LDL Calculated 182 (H) 19 - 130 HP CONVERSION mg/dL Length Of Fast 12 HP CONVERSION Specimen Anatomical Collection Method Collection Time Receive d Time (Source) Location / / Volume Laterality 01/22/2011 11:58 01/22/2011 2:46 AM CDT PM CDT Narrative HP CONVERSION - 01/22/2011 3:11 PM CDT Performed at [facility], [address] [place] [address] Lilian Persaud DO LAB_1 Performing Organization Address City/State/[facility] Code Phon e Number HP CONVERSION (ABNORMAL) Electrolyte Panel (01/22/2011 11:58 AM CDT) athologist Signature Sodium 133 (L) 137 - 147 HP CONVERSION mEq/L Potassium 4.8 3.5 - 5.2 HP CONVERSION mEq/L Chloride 99 98 - 110 HP CONVERSION mEq/L Bicarbonate 24 23 - 33 HP CONVERSION mmol/L Specimen Anatomical Collection Method Collection Time Receive d Time (Source) Location / / Volume Laterality 01/22/2011 11:58 01/22/2011 2:46 AM CDT PM CDT Narrative HP CONVERSION - 01/22/2011 3:11 PM CDT Performed at [facility], [address] [place] [address] Lilian Persaud DO LAB_1 Performing Organization Address City/[facility] Phon e Number HP CONVERSION (ABNORMAL) GLUCOSE (01/22/2011 11:58 AM CDT) athologist Signature Lab Glucose 249 (H) 60 - 100 HP CONVERSION mg/dL Specimen Anatomical Collection Method Collection Time Receive d Time (Source) Location / / Volume Laterality 01/22/2011 11:58 01/22/2011 2:46 AM CDT PM CDT Narrative HP CONVERSION - 01/22/2011 3:11 PM CDT Performed at [facility], [address] [place] [address] Lilian Persaud DO LAB_1 Performing Organization Address City/[facility] Code Phon e Number HP CONVERSION Creatinine / GFR (01/22/2011 11:58 AM CDT) athologist Signature Creatinine 0.7 0.4 - [...] Time (Source) Location / / Volume Laterality 01/22/2011 11:58 01/22/2011 2:46 AM CDT PM CDT Narrative HP CONVERSION - 01/22/2011 3:11 PM CDT Performed at [facility], [address] [place] [address] Lilian Luther Cori SAL LAB_1 Performing Organization Address [facility] Phon e Number HP CONVERSION AST (01/22/2011 11:58 AM CDT) [facility] gist Method Time Signature Aspartate 27 0 - 45 HP CONVERSION Aminotransferase U/L Specimen Anatomical Collection Method Collection Time Receive d Time (Source) Location / / Volume Laterality 01/22/2011 11:58 01/22/2011 2:46 AM CDT PM CDT Narrative HP CONVERSION - 01/22/2011 3:11 PM CDT Performed at [facility], [address] [place], [place] [id number] Lilian Luther Cori SAL LAB_1 Performing Organization Address [facility] Phon e Number HP CONVERSION ALT (SGPT) (01/22/2011 11:58 AM CDT) [facility] Method Time Signature Alanine 41 4 - 55 HP CONVERSION Aminotransferase U/L Specimen Anatomical Collection Method Collection Time Receive d Time (Source) Location / / Volume Laterality 01/22/2011 11:58 01/22/2011 2:46 AM CDT PM CDT Narrative HP CONVERSION - 01/22/2011 3:11 PM CDT Performed at [facility], [address] [place], [place] [address] Lilian Luther Cori SAL LAB_1 Performing Organization Address [facility] Phon e Number HP CONVERSION VENIPUNCTURE (SOBEIDA) (01/22/2011 11:52 AM CDT) athologist Signature Venipuncture Done HP CONVERSION Specimen (Source) Anatomical Collection Method Collection Time Re ceived Time Location / / Volume Laterality 01/22/2011 11:52 AM CDT Narrative HP CONVERSION - 01/22/2011 11:52 AM CDT Performed at [facility], [address] [place] [address] Lilian Luther Cori SAL LAB_1 Performing Organization Address [facility] Phon e Number HP CONVERSION documented in this encounter Visit Diagnoses Diagnosis Pure hyperglyceridemia (HRC) Pure hyperglyceridemia Type II or unspecified type diabetes jasen litus without mention of complication, uncontrolled documented in this encounter Care Teams Certified Surgical Tech/First Assistant Relationship Specialty Start Date End Date Lilian Persaud DO PCP - General 12/23/10 05/16/12 [address] [place] [address] documented as of this encounter
--- OUTSIDE RECORDS SUMMARY | 2022-02-12 12:16 | XMS_ITS | Encounter Summary ---
:1970 Author Organization [facility] Address [address] [place] [address] Care Team Providers Name Role Phone Lilian Persaud DO Primary Care Provider Encounter Details Date Type Department Care Team Description 01/22/2011 Notes/Orders Lilian Camejo, Pure hyperglyceridemia; Medicine DO DM w/o complication type II, uncontrolle d [address] [facility] [address] [place] [address] [place], [place] [phone] [address] Social History Tobacco Use Types Packs/Day Years Used Date Smoking Tobacco: Never Assessed Sex Assigned at Date Recorded Not on file documented as of this encounter Plan of Treatment Not on filedocumented as of this encounter Visit Diagnoses Diagnosis Pure hyperglyceridemia (HRC) Pure hyperglyceridemia Type II or unspecified type diabetes jasen litus without mention of complication, uncontrolled documented in this encounter Care Teams Open Pit Quarry Supervisor Relationship Specialty Start Date End Date Lilian Persaud DO PCP - General 12/23/10 05/16/12 [address] [place] [address] documented as of this encounter
--- OUTSIDE RECORDS SUMMARY | 2022-02-12 12:16 | XMS_ITS | Encounter Summary ---
:1970 Author [facility] Address [address] [place] [address] Care Team Providers Name Role Phone Lilian Persaud DO Primary Care Provider Reason for Visit Reason Comments Prior Authorization Request Encounter Details Date Type Department Care Team Description 02/02/2011 Notes/Orders [facility] Lilian Persaud DO [address] [facility] . [address] [place] [address] [place] [address] [phone] (Wo rk) Social History Tobacco Use Types Packs/Day Years Used Date Smoking Tobacco: Never Assessed Sex Assigned at Date Recorded Not on file documented as of this encounter Progress Notes Herlinda Lucio [facility] - 02/02/2011 4:38 PM CDT See message from 01/26. FERNANDO for Tyrone arreola. Approval faxed to pharmacy and sent to [facility]. documented in this encounter Plan of Treatment Not on filedocumented as of this encounter Visit Diagnoses Not on filedocumented in this encounter Care Teams Bag Bundler Relationship Specialty Start Date End Date Lilian Persaud DO PCP - General 12/23/10 05/16/12 [address] [place] [address] documented as of this encounter
--- OUTSIDE RECORDS SUMMARY | 2022-02-12 12:16 | XMS_ITS | Encounter Summary ---
:1970 Author Organization [facility] Address [address] [place] [address] Care Team Providers Name Role Phone Lilian Persaud DO Primary Care Provider Reason for Visit Reason Comments ERRONEOUS ENTRY Encounter Details Date Type Department Care Team Description 03/08/2011 Telephone [facility] Lilian Persaud DO ERRONEOUS ENTRY [address] [facility] . [address] [place] [address] [place] [address] [phone] (Wo rk) Social History Tobacco Use Types Packs/Day Years Used Date Smoking Tobacco: Never Assessed Sex Assigned at Date Recorded Not on file documented as of this encounter Plan of Treatment Not on filedocumented as of this encounter Visit Diagnoses Not on filedocumented in this encounter Care Teams Director Internal Communications Relationship Specialty Start Date End Date Lilian Persaud DO PCP - General 12/23/10 05/16/12 [address] [place] [address] documented as of this encounter
--- OUTSIDE RECORDS SUMMARY | 2022-02-12 12:16 | XMS_ITS | Encounter Summary ---
:1970 Author Organization [facility] Address [address] [place] [address] Care Team Providers Name Role Phone Lilian Persaud DO Primary Care Provider Reason for Visit Reason Comments Refill Encounter Details Date Type Department Care Team Description 03/16/2011 Refill [facility] Lilian Persaud DO Refill [address] [address] [place] [address] [place] [address] [phone] (Wo rk) Social History Tobacco Use Types Packs/Day Years Used Date Smoking Tobacco: Never Assessed Sex Assigned at Date Recorded Not on file documented as of this encounter Nursing Notes Lilian Persaud DO - 03/17/2011 8:11 AM CST pt has an appt this afternoon at 2 pm. I will address refills at ov. ICAL DETECTION EXPERT Maximilian Ag - 03/17/2011 7:40 AM CST last OV for diabetes 01/22/11 with recheck directed in 6 weeks but no protocol labs listed To primary documented in this encounter Plan of Treatment Not on filedocumented as of this encounter Visit Diagnoses Not on filedocumented in this encounter Care Teams Financial Legal Assistant Relationship Specialty Start Date End Date Lilian Persaud DO PCP - General 12/23/10 05/16/12 [address] [place] [address] documented as of this encounter
[2022-02-12 12:17] LABS: Basophils Absolute Auto 0.02 K/uL (0.00-0.30); Basophils Percent Auto 0.2 % (0.0-3.0); Eosinophils Absolute Auto 0.02 K/uL (0.00-0.50); Eosinophils Percent Auto 0.2 % (0.0-7.0); Hematocrit 32.6 % (37.0-53.0); Hemoglobin* 11.2 gm/dL (13.5-17.5); Immature Granulocytes Abs Auto 0.01 K/uL (0.00-0.30); Lymphocytes Absolute Auto 2.17 K/uL (0.90-2.90); Lymphocytes Percent Auto 24.1 % (20-44); Mean Corpuscular HGB Conc 34 gm/dL (32-36); Mean Corpuscular Hemoglobin 31 pg (26-34); Mean Corpuscular Volume 90 fL (80-100); Monocytes Percent Auto 19.7 % (0.0-11.0); Neutrophils Percent Auto 55.7 % (42.0-72.0); Platelet Count* 161 K/uL (140-440); RDW Coefficient of Variation % 11.8 % (11.5-15.5); Red Blood Count 3.61 m/uL (4.30-5.90); White Blood Count* 8.99 K/uL (4.50-11.00)
--- OUTSIDE RECORDS SUMMARY | 2022-02-12 12:17 | XMS_ITS | Encounter Summary ---
:1970 Author Organization [facility] Address [address] [place] [address] Care Team Providers Name Role Phone Antonio Jerez MD Primary Care Provider Encounter Details Date Type Department Care Team Description 03/17/2009 PN Conversion Only [place] [facility] CONVERSION Antonio Jerez, [address] [facility] [place] [address] [address] [facility] [place] [phone] (Wo rk) Social History Tobacco Use Types Packs/Day Years Used Date Smoking Tobacco: Never Assessed Sex Assigned at Date Recorded Not on file documented as of this encounter Plan of Treatment Not on filedocumented as of this encounter Procedures Procedure Name Priority Date/Time Associated Comments Diagnosis GLUCOSE Routine 03/17/2009 1:20 PM Results f or this DIRECTOR INSTITUTION procedure are i n the results section. THYROID STIMULATING Routine 03/17/2009 1:20 PM Re sults for this HORMONE DIRECTOR INSTITUTION procedure are i n the results section. documented in this encounter Results THYROID STIMULATING HORMONE (03/17/2009 1:20 PM DIRECTOR INSTITUTION) athologist Signature Thyroid 1.53 0.20 - HP CONVERSION Stimulating 4.50 Hormone uIU/mL Specimen (Source) Anatomical Collection Method Collection Time Re ceived Time Location / / Volume Laterality 03/17/2009 1:20 PM DIRECTOR INSTITUTION Antonio Jerez MD LAB_1 Performing Organization Address City/State/ZIP Code Phon e Number HP CONVERSION (ABNORMAL) GLUCOSE (03/17/2009 1:20 PM DIRECTOR INSTITUTION) P athologist Signature Lab Glucose 119 (H) 60 - 100 HP CONVERSION mg/dL Specimen (Source) Anatomical Collection Method Collection Time Re ceived Time Location / / Volume Laterality 03/17/2009 1:20 PM DIRECTOR INSTITUTION Antonio Jerez MD LAB_1 Performing Organization Address City/State/ZIP Code Phon e Number HP CONVERSION documented in this encounter Visit Diagnoses Not on filedocumented in this encounter Care Teams Direct Mail Coordinator Relationship Specialty Start Date End Date Antonio Jerez MD PCP - General 07/25/10 12/22/[address] [place] [address] [place] [address] documented as of this encounter
--- OUTSIDE RECORDS SUMMARY | 2022-02-12 12:17 | XMS_ITS | Encounter Summary ---
:1970 Author Organization [facility] Address [address] [place] [address] Care Team Providers Name Role Phone Michel Daniel MD Primary Care Provider Encounter Details Date Type Department Care Team Description 03/17/2009 Office Visit [facility] Michel Daniel MD [address] [facility] . [address] [place] [address] [place] [address] [phone] (Wo rk) Social History Tobacco Use Types Packs/Day Years Used Date Smoking Tobacco: Never Assessed Sex Assigned at Date Recorded Not on file documented as of this encounter Last Filed Vital Signs Vital Sign Reading Time Taken Comments Blood Pressure 134/76 03/17/2009 12:46 PM PASTEURISER OPERATOR Pulse 88 03/17/2009 12:46 PM PASTEURISER OPERATOR Temperature - - Respiratory Rate - - Oxygen Saturation - - Inhaled Oxygen Concentration - - Weight 98.8 kg (217 lb 11.6 oz) 03/17/2009 12:46 PM C: 98.8kg PASTEURISER OPERATOR Height - - Body Mass Index 31.24 06/24/2008 12:32 PM PASTEURISER OPERATOR documented in this encounter Progress Notes Michel Daniel MD - 03/17/2009 12:01 AM CST Progress Notes signed by Michel Daniel MD at 03/19/09 0717 Author: Michel Daniel MD Service: (none) Author Type: Physician Filed: 08/15/10 1816 Note Time: 03/17/09 0001 Status: Signed Senior Sales Operations Manager: Michel Daniel MD (Physician) NAME: SHARLENE VARNER MR#: [id number] ACCT: [id number] VISIT: [id number] DICTATING CLINICIAN: MICHEL DANIEL MD CONFIRM #: [id number] LOC: 1202 CLINIC PROGRESS NOTE DATE OF VISIT: 03/17/2009 SUBJECTIVE: : 1970. A 39-year-old male with a history of bipolar disorder who is in today stating he is having some discomfort in his left ear. It has been bothering him fairly consistently for the last several weeks. He also wonders about his thyroid being over and/or under active. He is being followed in mental health by Dr. Vane Zarate, who evidently will be leaving [facility], but he states that he intends to follow her privately into her private office. He was seen by Dr. Zarate on 03/10 and medicine was adjusted at that time and Risperdal was added. He states that he developed muscle spasms, was in the emergency room at [facility] over the weekend. Was started on Benadryl. Had medication change room attendant the telephone on 03/14 when Stelazine, which he had also started, was stopped. He states that when he was in the emergency room his blood sugars were in the 200 range. He is feeling considerably better today. The muscle spasms have resolved. It has been noted in the past that a 2-hour postprandial blood sugar several years ago, was normal, but his sugar has not been checked since 01/2007. OBJECTIVE: VS: BP: 134/76. P: 88. Wt: 217 lb. male. Both ear canals are clear and drums were perfectly normal. There is slight tenderness on palpation at the left TMJ joint. His nose and throat are negative. Thyroid gland is normal in size. There is no adenopathy in his neck. ASSESSMENT: 1. Bipolar disorder. 2. TMJ joint discomfort, left. 3. Elevation of blood sugar. PLAN: We will do a blood sugar, TSH level today. He will be discussing his medication with Dr. Zarate and I will get back to him with above results. AAS:[id number] C: 03/17/09 15:06 CONFIRM #: [id number] EURISER OPERATOR documented in this encounter Plan of Treatment Not on filedocumented as of this encounter Visit Diagnoses Not on filedocumented in this encounter Care Teams Clasp Machine Operator Relationship Specialty Start Date End Date Michel Daniel MD PCP - General 07/25/10 12/22/10 [address] [facility] [place] [address] documented as of this encounter
--- OUTSIDE RECORDS SUMMARY | 2022-02-12 12:17 | XMS_ITS | Encounter Summary ---
:1970 Author Organization [facility] Address [address] [address] Care Team Providers Name Role Phone Antonio Jerez MD Primary Care Provider Encounter Details Date Type Department Care Team Description 07/30/2008 Credit Underwriter Only CONVERSION CONVERSION Vane Zarate MD [address] [place], [place] [address] (Wo rk) Social History Tobacco Use Types Packs/Day Years Used Date Smoking Tobacco: Never Assessed Sex Assigned at Date Recorded Not on file documented as of this encounter Progress Notes Vane Zarate MD - 07/30/2008 12:01 AM CDT Progress Notes signed by Vane Zarate MD at 07/30/08 1401 Author: Vane Zarate MD Service: (none) Author Type: Physician Filed: 08/15/10 1219 Note Time: 07/30/08 0001 Status: Signed Lead Radiologic Technologist: Vane Zarate MD (Physician) Please accept this note as documentation that I am recommending that Mr. Krishnamurthy return to work with no restrictions. Thank you very much. documented in this encounter Plan of Treatment Not on filedocumented as of this encounter Visit Diagnoses Not on filedocumented in this encounter Care Teams Lacquer Dipping Machine Operator Relationship Specialty Start Date End Date Antonio Jerez MD PCP - General 07/25/10 12/22/10 [address] [place] [address] documented as of this encounter
--- OUTSIDE RECORDS SUMMARY | 2022-02-12 12:17 | XMS_ITS | Encounter Summary ---
:1970 Author Organization [facility] Address [address], [place] [address] Care Team Providers Name Role Phone Antonio Jerez MD Primary Care Provider Reason for Visit Reason Comments Lucy Burciaga Encounter Details Date Type Department Care Team Description 11/25/2010 Office Visit [facility] Lilian Persaud Stye; Medicine DO Dermatophytosis of the body; [address] [place] [address] [place] C T DM w/o complication type II, uncontrolle d; [address] [place], [place] Other disorders [place] [address] [phone] Social History Tobacco Use Types Packs/Day Years Used Date Smoking Tobacco: Never Assessed Sex Assigned at Date Recorded Not on file documented as of this encounter Last Filed Vital Signs Vital Sign Reading Time Taken Comments Blood Pressure 110/78 11/25/2010 3:31 PM CDT Pulse 120 11/25/2010 3:31 PM CDT Temperature - - Respiratory Rate - - Oxygen Saturation - - Inhaled Oxygen Concentration - - Weight 96.2 kg (212 lb) 11/25/2010 3:31 PM CDT Height 177.8 cm (5' 10) 11/25/2010 3:31 PM CDT Body Mass Index 30.42 11/25/2010 3:31 PM CDT documented in this encounter Progress Notes Lilian Persaud DO - 11/25/2010 6:00 PM CDT SUBJECTIVE: History of present illness: 40 y.o. male presents for left eye stye and recurrence of rash on his trunk. Patient was in the office in August with the exact same rash as he has today. Treatment with Diflucan resolved tinea corporis infection. Patient tolerated medication well without side effects. Patient presents for recurrence and treatment again. Patient developed a left eye stye on his upper lid 2-3 days ago. Nonpruritic. Tender with blinking. Swollen and red. Mattering. Small stye on the lower lid has been present for months and wax and wanes. Treatment includes hot compresses. No visual changes. Patient also mentions that he was diagnosed with diabetes about a year ago. He was diagnosed at [facility] during an ER hospital stay. Patient was given glipizide XL 5 mg, which he took for amonth or 2 and then discontinued. Patient also discontinued simvastatin, because he was told that his cholesterol was fine. I'm not sure if he misunderstood or if his cholesterol was fine because of the simvastatin. Hospital discharge records indicate patient should have stayed on the simvastatin. Patient was also placed on an LEANDER inhibitor, which she also discontinued. Patient said he has not done much with his diabetes this past year however he has lost weight. His insurance does not cover a glucos e monitor, and he does not have access to testing his blood sugars. Patient would like to restart his glipizide. Patient has never been on any other glucose lowering medications that he is aware of. Past Medical History Diagnosis Date ??? Tobacco Abuse #*LW 1 09/29/2002 ??? Bipolar I Dis NOS #*LW 2 09/15/2005 ??? Dyslipidemia #*LW 3 12/22/2009 ??? DM #*LW 4 12/22/2009 ??? CAD NOS #*LW 5 12/22/2009 ??? Liver Function Tests Abnormal #*LW 6 12/22/2009 ??? Pain Chest Wall #*LW 7 12/22/2009 ??? Tinea Corporis #*LW 8 09/04/2010 History reviewed. No pertinent past surgical history. History reviewed. No pertinent family history. History Social History ??? Marital Status: Single Spouse Name: N/A Number of Children: N/A ??? Years of Education: N/A Occupational History ??? Not on file. Social History Main Topics ??? Smoking status: Current Everyday Smoker -- 0.7 packs/day for 25 years Types: Cigarettes ??? Smokeless tobacco: Not on file Comment: Smoking History Packs/day: ??? Alcohol Use: Alcoholic Drinks/day: Amount:0; Freq:Never; ??? Drug Use: ??? Sexually Active: Other Topics Concern ??? Not on file Social History Narrative ??? No narrative on file Current outpatient prescriptions ordered prior to encounter Medication Sig Dispense Refill ??? aspirin 81 mg tablet Take 1 tablet by mouth daily (every 24 hours). 90 3 ??? DEPAKOTE 500 mg EC tablet Take 5 tablets by mouth daily (every 24 hours). LW Comment:pat LW AddlInstr:PAT- BRAND ??? DISCONTD: fluconazole (DIFLUCAN) 150 mg tablet Take 1 tablet by mouth once a week. LW Addl Instr:For yeast infection 4 ??? glipiZIDE (GLUCOTROL XL) 5 mg 24 hr tablet Take 1 tablet by mouth daily (every 24 hours). LW Addl Instr:Do not cut/crush/chew. Indicated for: Diabetes 90 3 ??? DISCONTD: Omeprazole Magnesium (PRILOSEC OTC) 20 mg tablet Take 1 tablet by mouth daily as needed. LW Addl Instr:Indicated for: Acid Reflux 3 ??? DISCONTD: op medications reviewed ??? risperidone (RISPERDAL) 3 mg tablet Take 2 tablets by mouth nightly. 60 12 ??? DISCONTD: simvastatin (ZOCOR) 40 mg tablet Take 1 tablet by mouth every evening. LW Addl Instr:Indicated for: High Cholesterol 90 3 Allergies Allergen Reactions ??? Haloperidol LW Reaction: shock ??? Thiothixene LW Reaction: Muscle spasm ROS: otherwise negative with the exception of positives in HPI. OBJECTIVE: Filed Vitals: 11/25/10 1531 BP: 110/78 Pulse: 120 Height: 1.778 m (5' 10) Weight: 96.163 kg (212 lb) General appearance: alert, cooperative, no distress, appears stated age Head: Normocephalic, without obvious abnormality, atraumatic Eyes: negative findings: conjunctivae and sclerae normal, corneas clear and pupils equal, round, reactive to light and accomodation, positive findings: eyelids/periorbital: external hordeolum on the left upper eyelid with surrounding edema and redness. Yellow mattering noted. Patient wears glasses. Skin: Moderate sized area (smaller than previously) across his central chest and under the pectoralis muscles with scattered lesions across the upper chest shoulders and trapezius area with well-demarcated, erythematous/whipple colored areas, confluence noted with slightly raised outer border (1-2mm) in acircular pattern. Satellite lesions across the upper chest and shoulders. Non-malodorous. No discharge. No warmth. Nontender to palpationNeuro: CN II-XII, motor & sensory function all intact. DTR's symmetric andnormal. Psychiatric: Alert & oriented with normal affect and insight, does not appear depressed or anxious. Timur was seen today for rash and stye. Diagnoses and associated orders for this visit: Stye - tobramycin (TOBREX) 0.3 % ophthalmic solution; Place 1-2 drops into the left eye every 4 hours (while awake) for 5 days. Tinea corporis #*lw 8 - fluconazole (DIFLUCAN) 150 mg tablet; Take 1 tablet by mouth once a week. Dm w/o complication type ii, uncontrolled Dyslipidemia #*lw 3 patient given antibiotic ointment to help with possible bacterial infection associated with stye, also apply warm compress. Handout provided to the patient. Patient advised if it does not improve or resolve, appointment with ophthalmology would be indicated. Patient given Diflucan 150 mg weekly dose, also encouraged to take medication and then exercises 30 minutes later. Patient advised of high rate of recurrence, especially during summer months with heat and humidity. Uncertain of where patient says that with diabetes and dyslipidemia. Patient not fasting today. Check hemoglobin A1c today. I will fill glipizide XL 5 mg or metformin once results are available if patient is diabetic, he may have improved diabetes with weight loss. Patient will then return to the office in 3 weeks fasting for blood work and office visit 2 days later. Future blood work orders sent to the lab. Patient agreed with plan. Patient given handout on community resources for diabetes supplies. Patient be able to get a glucose monitor through one of the resources. Patient also given diabetes patient handout. Patient discharged in stable condition. Patient will followup in 3 weeks. 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
--- OUTSIDE RECORDS SUMMARY | 2022-02-12 12:17 | XMS_ITS | Encounter Summary ---
:1970 Author Organization [facility] Address [address] [place] [address] Care Team Providers Name Role Phone Antonio Jerez MD Primary Care Provider Encounter Details Date Type Department Care Team Description 12/11/2010 Lab Visit [facility] Pure hyperglyceridemia; [address] DM w/o complication type II, uncontrolled [place], [place] [address] Social History Tobacco Use Types Packs/Day Years Used Date Smoking Tobacco: Never Assessed Sex Assigned at Date Recorded Not on file documented as of this encounter Plan of Treatment Not on filedocumented as of this encounter Procedures Procedure Name Priority Date/Time Associated Diagnosis Comme nts ALBUMIN/CREAT RATIO Routine 12/11/2010 3:13 Type II or unspeci fied Results for this PM CDT type diabetes mellitus proce dure are in without mention of the resul ts complication, section. uncontrolled (HRC) GLUCOSE Routine 12/11/2010 3:09 Type II or unspecified Re sults for this PM CDT type diabetes mellitus proce dure are in without mention of the resul ts complication, section. uncontrolled (HRC) CREATININE / GFR Routine 12/11/2010 3:09 Type II or unspecifie d Results for this PM CDT type diabetes mellitus proce dure are in without mention of the resul ts complication, section. uncontrolled (HRC) ELECTROLYTE PANEL Routine 12/11/2010 3:09 Type II or unspecifi ed Results for this PM CDT type diabetes mellitus proce dure are in without mention of the resul ts complication, section. uncontrolled (HRC) ALT (SGPT) Routine 12/11/2010 3:09 Pure hyperglyceridemia Re sults for this PM CDT procedure are i n the results section. AST Routine 12/11/2010 3:09 Pure hyperglyceridemia Re sults for this PM CDT procedure are i n the results section. VENIPUNCTURE (SOBEIDA) Routine 12/11/2010 3:05 Pure hyperglycerid emia Results for this PM CDT procedure are i n the results section. documented in this encounter Results (ABNORMAL) Microalb/Creat Ratio (12/11/2010 3:13 PM CDT) Patholo gist Method Time Signature Microalbumin 17.0 mg/L HP CONVERSION Urine U Creat Random 43 mg/dL HP CONVERSION Microalbumin/Cre 39.5 (H) 0.0 - HP CONVERSION atinine Ratio 30.0 Specimen Anatomical Collection Method Collection Time Receive d Time (Source) Location / / Volume Laterality 12/11/2010 3:13 PM 1 8:51 CDT PM CDT Lilian Persaud DO LAB_1 Performing Organization Address City/State/ZIP Code Phon e Number HP CONVERSION (ABNORMAL) Electrolyte Panel (12/11/2010 3:09 PM CDT) P athologist Signature Sodium 129 (L) 137 - 147 HP CONVERSION mEq/L Potassium 4.7 3.5 - 5.2 HP CONVERSION mEq/L Chloride 97 (L) 98 - 110 HP CONVERSION mEq/L Bicarbonate 25 23 - 33 HP CONVERSION mmol/L Specimen Anatomical Collection Method Collection Time Receive d Time (Source) Location / / Volume Laterality 12/11/2010 3:09 PM 1 8:13 CDT PM CDT Narrative HP CONVERSION - 12/11/2010 8:30 PM CDT Performed at [facility], [address] [place] [address] Lilian Persaud DO LAB_1 Performing Organization Address City/State/ZIP Code Phon e Number HP CONVERSION (ABNORMAL) GLUCOSE (12/11/2010 3:09 PM CDT) P athologist Signature Lab Glucose 397 (H) 60 - 100 HP CONVERSION mg/dL Specimen Anatomical Collection Method Collection Time Receive d Time (Source) Location / / Volume Laterality 12/11/2010 3:09 PM 1 8:13 CDT PM CDT Narrative HP CONVERSION - 12/11/2010 8:30 PM CDT Performed at [facility], [address] [place] [address] Lilian Persaud DO LAB_1 Performing Organization Address [facility] Phon e Number HP CONVERSION Creatinine / GFR (12/11/2010 3:09 PM CDT) athologist Signature Creatinine 0.9 0.4 - 1.3 HP CONVERSION Serum mg/dL [...] Time (Source) Location / / Volume Laterality 12/11/2010 3:09 PM 1 8:13 CDT PM CDT Narrative HP CONVERSION - 12/11/2010 8:30 PM CDT Performed at [facility], [address] [place] [address] Lilian Persaud DO LAB_1 Performing Organization Address [facility] Phon e Number HP CONVERSION AST (12/11/2010 3:09 PM CDT) [facility] Method Time Signature Aspartate 19 0 - 45 HP CONVERSION Aminotransferase U/L Specimen Anatomical Collection Method Collection Time Receive d Time (Source) Location / / Volume Laterality 12/11/2010 3:09 PM 1 8:13 CDT PM CDT Narrative HP CONVERSION - 12/11/2010 8:30 PM CDT Performed at [facility], [address] [place] [address] Lilian Persaud DO LAB_1 Performing Organization Address [facility] Phon e Number HP CONVERSION ALT (SGPT) (12/11/2010 3:09 PM CDT) [facility] Method Time Signature Alanine 28 4 - 55 HP CONVERSION Aminotransferase U/L Specimen Anatomical Collection Method Collection Time Receive d Time (Source) Location / / Volume Laterality 12/11/2010 3:09 PM 1 8:13 CDT PM CDT Narrative HP CONVERSION - 12/11/2010 8:30 PM CDT Performed at [facility], [address] [place] [address] Lilain Luther Cori SAL LAB_1 Performing Organization Address [facility] Phon e Number HP CONVERSION VENIPUNCTURE (SOBEIDA) (12/11/2010 3:05 PM CDT) athologist Signature Venipuncture Done HP CONVERSION Specimen (Source) Anatomical Collection Method Collection Time Re ceived Time Location / / Volume Laterality 12/11/2010 3:05 PM CDT Narrative HP CONVERSION - 12/11/2010 3:05 PM CDT Performed at [facility], [address] [place] [id number] Lilian A Cori SAL LAB_1 Performing Organization Address [facility] Phon e Number HP CONVERSION documented in this encounter Visit Diagnoses Diagnosis Pure hyperglyceridemia (HRC) Pure hyperglyceridemia Type II or unspecified type diabetes jasen litus without mention of complication, uncontrolled documented in this encounter Care Teams Billet Bed Operator Relationship Specialty Start Date End Date Antonio Jerez MD PCP - General 07/25/10 12/22/[address] [place] [id number] documented as of this encounter
--- OUTSIDE RECORDS SUMMARY | 2022-02-12 12:17 | XMS_ITS | Encounter Summary ---
:1970 Author Organization [employer] [facility] Address [address] [place] [address] Care Team Providers Name Role Phone Antonio Jerez MD Primary Care Provider Reason for Visit Reason Comments Other Encounter Details Date Type Department Care Team Description 11/26/2010 Telephone [email or web address] [facility] Mimi Rodrigues RN Other [address] [place], [place] [id number] Social History Tobacco Use Types Packs/Day Years Used Date Smoking Tobacco: Never Assessed Sex Assigned at Date Recorded Not on file documented as of this encounter Nursing Notes Sarah Leon - 11/26/2010 3:14 PM CDT discussed with pt. he was unaware that he had this test done yesterday. advised that he did, and that Na level is low and he needs this addressed. he reports that he is feeling fine. advised that he may feel fine now, but sx's could set in. advised he needs to be seen in UC or ER this afternoon for these fluids. he does agree then to go in. asks what he should tell them when he goes in. advised to let UC or ER know that we called with this low Na level and that he was advised to go in for fluids. heunderstands. advised to follow up per ER instructions. he had no further questions Molly Foley LPN - 11/26/2010 2:49 PM CDT [place] [id number] Olga Peterson V - 11/26/2010 1:09 PM CDT Please call patient to inform that his sodium is significantly low. Low sodium could caused extreme fatigue. It will be best to be seen today at urgent care or the emergency room for IV fluid hydration Mimi Rodrigues RN - 11/26/2010 12:17 PM CDT [facility] lab calling with critical result. Sodium is 126. Triage forwarding to clinician per distribution list to address. documented in this encounter Plan of Treatment Not on filedocumented as of this encounter Visit Diagnoses Not on filedocumented in this encounter Care Teams Trim Die Maker Relationship Specialty Start Date End Date Antonio Jerez MD PCP - General 07/25/10 12/22/10 [address] [facility] [place] [address] documented as of this encounter
--- OUTSIDE RECORDS SUMMARY | 2022-02-12 12:17 | XMS_ITS | Encounter Summary ---
:1970 Author Organization [employer] Address [address] [place] [address] Care Team Providers Name Role Phone Lilian Persaud DO Primary Care Provider Reason for Visit Reason Comments Diabetes Encounter Details Date Type Department Care Team Description 12/23/2010 Office Visit [facility] Lilian Persaud, DM (ralph betes mellitus) type II uncontrolled with renal manifestation (Primary Dx); Medicine DO Hypertriglyceridemia; [address] Tobacco use disorder; [place] [address] [place], [place] Chest pain [phone] Social History Tobacco Use Types Packs/Day Years Used Date Smoking Tobacco: Never Assessed Sex Assigned at Date Recorded Not on file documented as of this encounter Last Filed Vital Signs Vital Sign Reading Time Taken Comments Blood Pressure 120/72 12/23/2010 2:03 PM CDT Pulse 110 12/23/2010 2:03 PM CDT Temperature - - Respiratory Rate - - Oxygen Saturation - - Inhaled Oxygen Concentration - - Weight 98.4 kg (217 lb) 12/23/2010 2:03 PM CDT Height 177.8 cm (5' 10) 12/23/2010 2:03 PM CDT Body Mass Index 31.14 12/23/2010 2:03 PM CDT documented in this encounter Progress Notes Lilian Persaud DO - 12/24/2010 7:44 AM CDT Clinic Visit SUBJECTIVE: Patient presents for follow up of Type 2 Diabetes. Diabetes: Lab Results Component Value Date/Time Hemoglobin A1C 10.0* 11/25/2010 16:18 HGB A1C See Note 11/25/2010 16:18 patient says his blood sugars are doing better. He is taking glipizide XL 10 mg and metformin 500 mg t.i.d. No side effects from medications. Patient checks his blood sugars several times a day, he did not bring his blood sugar log with him today. patient reports his blood sugars are running in the high 100s and low 200s . patient says he has decreased his intake of carbohydrates and eating better overall. he has increased his vegetable intake. he is exercising by walking daily . patient's last urine screen showed excess protein . patient is taking lisinopril daily without side effects. Last eye exam: Patient due for appointment, he will schedule after his wedding. Hyperlipidemia: patient reports not being able to afford fish oil . patient is taking gemfibrozil without side effect. patient has a history of elevated liver function tests , while on cholesterol medication. Lab Results Component Value Date/Time Alk Phos 63 03/06/2009 19:50 Aspartate Aminotransferase 19 12/11/2010 15:09 Alanine Aminotransferase 28 12/11/2010 15:09 patient continues to smoke half a pack to one pack per day . he is not trying to cut down. he does not seem to realize the impact of smoking on his health. patient is nervous about getting in a week and a half , but feels confident . Evaluations: Lab Results Component Value Date/Time Microalbumin Urine 17.0 12/11/2010 15:13 History Social History ??? Marital Status: Single [...] History Narrative ??? No narrative on file ROS: No Chest Pain, currently. Chest pain yesterday, sharp retrosternal area, lasted 30 minutes and resolved on its own. Reoccurrence later that evening. None today. patient thinks it may have been heartburn or from smoking. no chest pain with activity today. No Dyspnea Current outpatient prescriptions Medication Sig Dispense Refill ??? aspirin 81 mg tablet Take 1 tablet by mouth daily (every 24 hours). ??? divalproex (DEPAKOTE) 500 mg EC tablet Take 2,000 mg by mouth DAILY MORNING LAB. Do not cut/crush/chew. Take with food. ??? fluconazole (DIFLUCAN) 150 mg tablet Take 1 [...] 2 DIABETES MELLITUS 30 tablet 1 ??? lisinopril (PRINIVIL, ZESTRIL) 5 mg tablet Take 1 tablet by mouth daily (every 24 hours). Indications: HYPERTENSION 30 tablet 5 ??? DISCONTD: lisinopril (PRINIVIL, ZESTRIL) 5 mg tablet Take 5 mg by mouth daily (every 24 hours). Indications: HYPERTENSION ??? metFORMIN (GLUCOPHAGE) 500 mg tablet Take 1-2 tablets by mouth 3 times daily (with meals). increase to 1000mg po q AM, 500mg at lunch and dinner x 1 week. Then increase to 1000mg AM and Lunch and 500mg at dinner. Indications: TYPE 2 DIABETES MELLITUS 90 tablet 0 ??? DISCONTD: metFORMIN (GLUCOPHAGE) 500 mg tablet Take 1 tablet by mouth 3 times daily (with meals). Indications: TYPE 2 DIABETES MELLITUS 90 tablet 0 ??? omega-3 fatty acids-fish oil 340-1,000 mg capsule Take 2 g by mouth daily (every 24 hours). Indications: HYPERTRIGLYCERIDEMIA 100 capsule 3 ??? DISCONTD: omega-3 fatty acids-fish oil 340-1,000 mg capsule Take 2 g by mouth daily (every 24 hours). Indications: HYPERTRIGLYCERIDEMIA 0 ??? risperiDONE (RISPERDAL) 4 mg tablet Take 4 mg by mouth daily (every 24 hours). OBJECTIVE: Filed Vitals: 12/23/10 1403 BP: 120/72 Pulse: 110 Height: 5' 10 (177.8 cm) Weight: 217 lb (60902 g) General: patient in NAD. Alert and oriented x3 CV: RRR without murmurs, rubs, or gallops. Resp: Clear to auscultation without crackles, wheezes or distress. Lower Extremities: No edema. Sensory exam of the foot is normal, tested with the monofilament. Good pulses, no lesions or ulcers,good peripheral pulses. Timur was seen today for diabetes. Diagnoses and associated orders for this visit: Dm (diabetes mellitus) type ii uncontrolled with renal manifestation - metFORMIN (GLUCOPHAGE) 500 mg tablet; Take 1-2 tablets by mouth 3 times daily (with meals). increase to 1000mg po q AM, 500mg at lunch and dinner x 1 week. Then increase to 1000mg AM and Lunch and 500mg at dinner. Indications: TYPE 2 DIABETES MELLITUS - lisinopril (PRINIVIL, ZESTRIL) 5 mg tablet; Take 1 tablet by mouth daily (every 24 hours). Indications: HYPERTENSION Hypertriglyceridemia - omega-3 fatty acids-fish oil 340-1,000 mg capsule; Take 2 g by mouth daily (every 24 hours). Indications: HYPERTRIGLYCERIDEMIA Tobacco abuse #*lw 1 Chest pain PLAN: check AST, ALT, creatinine today . Times and targets of blood sugar testing were reviewed. Discussed the importance of exercise. Followup in 3-4 weeks. Medication changes today: Increased metformin from 500mg TID to : Metformin 1000 mg p.o. q.a.m., 500mg lunchtime, 500 mg bedtime x1 week. Then increase to metformin 1000 mg p.o. q. a.m. and lunchtime,500 mg p.o. dinner time. Bring log of blood sugars in to the office at next visit. Followup in 3-4 weeks. Patient is getting next week, in 10 days. Additional medication changes at next visit. Consider Januvia. Patient prefers not to do injections. patient given prescription for fish oil to see if it is covered under his insurance , since he cannot afford it [id number]. Patient declined cardiac workup and EKG today. He would like to monitor and see how things go. ER precautions discussed with patient. patient advised if he has any additional chest pain , he needs to go to the emergency room or come to the office for evaluation. patient has history of cardiac workup one year ago that showed mod RCA, negative nuclear stress test. patient advised of risk factors including smoking, diabetes, dyslipidemia. Patient encouraged to quit smoking. Recommended decreasing from 1/2-1 ppd down to less than half a pack per day by the end of December. Patient agreed that is a reasonable goal. patient discharged in stable condition , followup in 3-4 weeks. patient given new blood sugar log book, advised to bring to his next appointment. additional refills can be done as needed, when he runs out he will contact the pharmacy for refills. documented in this encounter Plan of Treatment Not on filedocumented as of this encounter Visit Diagnoses Diagnosis DM (diabetes mellitus) type II uncontrol led with renal manifestation - Primary Type II or unspecified type diabetes jasen litus with renal manifestations, uncontrolled Hypertriglyceridemia (HRC) Pure hyperglyceridemia Tobacco use disorder (HRC) Tobacco use disorder Chest pain Chest pain, unspecified documented in this encounter Care Teams Spinning Bath Patroller Relationship Specialty Start Date End Date Lilian Persaud DO PCP - General 12/23/10 05/16/12 1878 [place] NEVAREZ [id number] documented as of this encounter
--- OUTSIDE RECORDS SUMMARY | 2022-02-12 12:17 | XMS_ITS | Encounter Summary ---
:1970 Author [facility] Address [address] [place] [address] Care Team Providers Name Role Phone Antonio Jerez MD Primary Care Provider Encounter Details Date Type Department Care Team Description 01/16/2009 PN Conversion Only HOUSEKEEPING DEPARTMENT WORKER 3850 CONV Vane Zarate MD [address] [place] [address] [address] [place] [address] Social History Tobacco Use Types Packs/Day Years Used Date Smoking Tobacco: Never Assessed Sex Assigned at Date Recorded Not on file documented as of this encounter Plan of Treatment Not on filedocumented as of this encounter Procedures Procedure Name Priority Date/Time Associated Diagnosis Comme nts COMPLETE BLOOD Routine 01/16/2009 11:28 AM Result s for this COUNT-W/DIFF CDT procedure are i n the results section. AMYLASE Routine 01/16/2009 11:28 AM Results for this CDT procedure are i n the results section. VALPROIC ACID Routine 01/16/2009 11:28 AM Results for this (DEPAKENE) CDT procedure are i n the results section. GT (GAMMA GT) Routine 01/16/2009 11:28 AM Results for this CDT procedure are i n the results section. ALT (SGPT) Routine 01/16/2009 11:28 AM Results for this CDT procedure are i n the results section. AST Routine 01/16/2009 11:28 AM Results for this CDT procedure are i n the results section. ALKALINE Routine 01/16/2009 11:28 AM Results for this PHOSPHATASE, TOTAL CDT procedure are in the results section. documented in this encounter Results (ABNORMAL) Valproic Acid (Depakene) (01/16/2009 11:28 AM CDT) [facility] Signature Time Last Dose 2,230 No normal HP CONVERSION Valproic Acid range Date Last Dose [id number] No normal HP CONVERSION Valproic Acid range Valproic 105 (H) 50 - 100 HP CONVERSION Acid/Depakene ug/mL (Valp) Specimen (Source) Anatomical Collection Method Collection Time Re ceived Time Location / / Volume Laterality 01/16/2009 11:28 AM CDT Vane Zarate MD LAB_1 Performing Organization Address City/State/ZIP Code Phon e Number HP CONVERSION (ABNORMAL) GT (Gamma GT) (01/16/2009 11:28 AM CDT) [facility] Method Time Signature Gamma-Glutamyl 267 (H) 1 - 48 U/L HP CONVERSION Transferase Specimen (Source) Anatomical Collection Method Collection Time Re ceived Time Location / / Volume Laterality 01/16/2009 11:28 AM CDT Vane Zarate MD LAB_1 Performing Organization Address City/[facility]/ZIP Code Phon e Number HP CONVERSION AST (01/16/2009 11:28 AM CDT) [facility] Method Time Signature Aspartate 34 0 - 45 HP CONVERSION Aminotransferase U/L Specimen (Source) Anatomical Collection Method Collection Time Re ceived Time Location / / Volume Laterality 01/16/2009 11:28 AM CDT Vane Zarate MD LAB_1 Performing Organization Address City/[facility]/ZIP Code Phon e Number HP CONVERSION Amylase (01/16/2009 11:28 AM CDT) athologist Signature Amylase Serum 37 25 - 115 HP CONVERSION U/L Specimen (Source) Anatomical Collection Method Collection Time Re ceived Time Location / / Volume Laterality 01/16/2009 11:28 AM CDT Vane Zarate MD LAB_1 Performing Organization Address City/[facility]/ZIP Code Phon e Number HP CONVERSION (ABNORMAL) ALT (SGPT) (01/16/2009 11:28 AM CDT) [facility] gist Method Time Signature Alanine 57 (H) 4 - 55 HP CONVERSION Aminotransferase U/L Specimen (Source) Anatomical Collection Method Collection Time Re ceived Time Location / / Volume Laterality 01/16/2009 11:28 AM CDT Vane Zarate MD LAB_1 Performing Organization Address City/State/ZIP Code Phon e Number HP CONVERSION Alkaline Phosphatase, Total (01/16/2009 11:28 AM CDT) P athologist Signature Alk Phos 73 25 - 135 U/L HP CONVERSION Specimen (Source) Anatomical Collection Method Collection Time Re ceived Time Location / / Volume Laterality 01/16/2009 11:28 AM CDT Vane Zarate MD LAB_1 Performing Organization Address City/[facility] Code Phon e Number HP CONVERSION Hemogram/Plts/Diff (01/16/2009 11:28 AM CDT) Patholo gist Method Time Signature White Blood Cell 6.9 3.8 - 11.0 HP CONVERSIO N Count K/cmm Red Blood Cell 5.59 4.20 - HP CONVERSION Count 5.90 m/cmm Hemoglobin 17.3 13.4 - HP CONVERSION 17.5 gm/dL Hematocrit 49.8 39.0 - HP CONVERSION 51.0 % Mean Corpuscular 89.2 80.0 - HP CONVERSION Volume 100.0 fl Mean Corpuscular 31.0 27.0 - HP CONVERSION Hemoglobin 34.0 pg Mean Corpuscular 34.7 32.0 - HP CONVERSION Hemoglobin Conc 36.5 gm/dL [place] RDW 11.2 11.0 - HP CONVERSION 15.0 % Platelet Count 192 140 - 450 HP CONVERSION k/cmm Differential Auto-Dif No normal HP CONVERSION Verify range Neutrophils 3.5 2.0 - 7.5 HP CONVERSION Absolute Count K/cmm Neutrophil 50.4 50.0 - HP CONVERSION 75.0 % Lymphocyte % 36.3 20.0 - HP CONVERSION 40.0 % Monocyte 11.2 5.0 - 14.0 HP CONVERSION % Eosinophil 1.1 0.0 - 6.0 HP CONVERSION % Basophil % 1.0 0.0 - 2.0 HP CONVERSION % Specimen (Source) Anatomical Collection Method Collection Time Re ceived Time Location / / Volume Laterality 01/16/2009 11:28 AM CDT Vane Zarate MD LAB_1 Performing Organization Address City/State/ZIP Code Phon e Number HP CONVERSION documented in this encounter Visit Diagnoses Not on filedocumented in this encounter Care Teams Natural Resources Specialist Relationship Specialty Start Date End Date Antonio Jerez MD PCP - General 07/25/10 12/22/10 14[address] [facility] [place] PEREZ [id number] documented as of this encounter
--- OUTSIDE RECORDS SUMMARY | 2022-02-12 12:17 | XMS_ITS | Encounter Summary ---
:1970 [facility] Address [address], [place] [address] Care Team Providers Name Role Phone Antonio Jerez MD Primary Care Provider Encounter Details Date Type Department Care Team Description 12/01/2009 Leather Belt Shaper Only CONVERSION CONVERSION Ida Woodall MD [address] [place] [address] Social History Tobacco Use Types Packs/Day Years Used Date Smoking Tobacco: Never Assessed Sex Assigned at Date Recorded Not on file documented as of this encounter Progress Notes Erich Woodall MD - 12/01/2009 12:01 AM CDT Progress Notes signed by Erich Woodall MD at 12/01/09 1531 Author: Erich Woodall MD Service: (none) Author Type: Physician Filed: 08/16/10 0023 Note Time: 12/01/09 0001 Status: Signed Blocker Heated Metal Forms: Erich Woodall MD (Physician) HOSPITAL DISCHARGE SUMMARY Patient Name: Timur Krishnamurthy Date of : 1970 Age: 39 y.o. Primary Physician: Antonio Jerez Admission Date: 11/29/2009 Discharge Date: 11/30/2009 He will be discharged from [facility] to home. PRINCIPAL DISCHARGE DIAGNOSIS: NONCARDIAC chest pain - likely musculoskeletal, possibly GI Patient Active Hospital Problem List: BIPOLAR DISORDER (02/13/2007) ADJUSTMENT D/O W MIXED DISTURB EMOTIONS/CONDUCT (02/13/2007) Unspecified chest pain (10/07/2009) Hyperglycemia (10/07/2009) Dyslipidemia (11/29/2009) BRIEF HOSPITAL COURSE : This 39 y.o. male presented to the ED with chest pain and was admitted for evaluation. This is his 4th admission for chest pain over the last two months. He has previously had a stress echo which was normal and a coronary CT which showed elevated calcium for his age and a focal moderate [id number] lesion of his RCA. He was discharged the first time to follow-up with his pcp in 3-4 days for new diagnosis diabetes - he did not follow-up. He was discharged the second time with appointments for his PCP and cardiology - he did not keep either appointment. He was admitted this time to the ICU on heparin and nitro gtt due to ongoing pain. He continued to have pain during this time. Troponins were all < 0.01 and the drips were stopped and he went to the floor. Case was reviewed with cardiology (Tuesday) and decision was made to pursue nuclear stress to determine whether the RCA lesion may be functionally flow-limiting. He had an adenosine nuclear stress test today which was negative for any signs of ischemia or infarct. Based on this his pain is almost certainly noncardiac. He was started on a trial of a PPI to see if this improves his pain. It definitely could also be musculoskeletal or psychosomatic. He does have extensive risk factors, which he is poorly compliant with treatment for. He was strongly advised to comply with follow-up and medications. He was discharged on appropriate medical therapy including ASA, ACEI, statin as noted below. PROCEDURES PERFORMED DURING HOSPITALIZATION : None COMPLICATIONS IN HOSPITAL : None PERTINENT FINDINGS/RESULTS AT DISCHARGE : BP 128/83 Pulse 82 Temp 96.7 F (35.9 C) Resp 16 Ht 1.778 m (5' 10) Wt 95.7 kg (210 lb 15.7 oz) SpO2 98% Patient Wt - Scale in the past 72 hrs: 6 Wt - Scale 11/29/09 2100 95.7 kg (210 lb 15.7 oz) 11/29/09 1506 95.255 kg (210 lb) see above Latest Laboratory Results: Chem: Recent Labs Basename 11/29/09 1510 11/23/09 0420 SODIUM 130L 133L POTASSIUM 4.1 4.5 4.5 CREATININE 0.70 0.82 WBC/Hgb: Recent Labs Basename 11/29/09 1510 11/22/09 1320 WBC 8.0 5.9 HGB 16.8 17.1 INR: Recent Labs Basename 11/29/09 1510 INR 1.0 IMPORTANT PENDING TEST RESULTS :None CONDITION AT DISCHARGE: Improving DISCHARGE ORDERS Current Discharge Medication List START taking these medications Z aspirin 81 mg tablet Take 1 tablet by mouth once daily with a meal. ] omeprazole (PRILOSEC) 20 mg capsule Take 1 capsule by mouth once daily before a meal. ` simvastatin (ZOCOR) 40 mg tablet Take 1 tablet by mouth at bedtime. CONTINUE these medications which have NOT CHANGED f ALPRAZolam (XANAX) 0.25 mg tablet Take 0.25 mg by mouth 3 times daily if needed. 1-2 three times daily as needed j blood sugar diagnostic strip As directed. Dispense test strips covered by the patient insurance. Test 2 times per day. n divalproex DELAYED release (DEPAKOTE) 500 mg tablet Take 5 tablets by mouth once daily. q fenofibrate nanocrystallized (TRICOR) 48 mg tablet Take 1 tablet by mouth once daily with a meal. For high cholesterol t glipiZIDE SR (GLUCOTROL XL) 5 mg CR tablet Take 1 tablet by mouth once daily before a meal. For blood sugar w lancets As directed. Test 2 times per day. z perphenazine 4 mg tablet Take 1 tablet by mouth 2 times daily. risperidone (RISPERDAL) 3 mg tablet Take 2 tablets by mouth at bedtime. Discharge Procedure Orders Activity: As Tolerated Diet: Diabetic Follow Up: With Primary MD in 3-4 Days FOLLOW-UP : He should see Antonio Jerez in 3-4 days. Specialty follow-up: with cardiology if development of any new symptoms or concerns AFTER HOSPITAL RECOMMENDATIONS Recommendations for outpatient physician: Pursue further evaluation and therapy for noncardiac chest pain Suggested outpatient medication adjustments : probably needs increases in his diabetes therapy. Total time spent for discharge on date of discharge: 30 minutes Physician(s) in addition to primary physician who should receive a copy: CC1: documented in this encounter Plan of Treatment Not on filedocumented as of this encounter Visit Diagnoses Not on filedocumented in this encounter Care Teams Account Auditor Relationship Specialty Start Date End Date Antonio Jerez MD PCP - General 07/25/10 12/22/10 [address] [facility] K[place]NA PEREZ [address] documented as of this encounter
--- OUTSIDE RECORDS SUMMARY | 2022-02-12 12:17 | XMS_ITS | Encounter Summary ---
:1970 [facility] Address [address] [address] Care Team Providers Name Role Phone Antonio Jerez MD Primary Care Provider Encounter Details Date Type Department Care Team Description 10/08/2009 PN Conversion Only OTHER CONVERSION [address] [place] [address] Social History Tobacco Use Types Packs/Day Years Used Date Smoking Tobacco: Never Assessed Sex Assigned at Date Recorded Not on file documented as of this encounter Plan of Treatment Not on filedocumented as of this encounter Visit Diagnoses Not on filedocumented in this encounter Care Teams Water Ski Assembler Relationship Specialty Start Date End Date Antonio Jerez MD PCP - General 07/25/10 12/22/10 [address] [place] [address] documented as of this encounter
--- OUTSIDE RECORDS SUMMARY | 2022-02-12 12:17 | XMS_ITS | Encounter Summary ---
:1970 Author [facility] Address [address] [place] [address] Care Team Providers Name Role Phone Antonio Jerez MD Primary Care Provider Encounter Details Date Type Department Care Team Description 11/25/2010 Notes/Orders Lilian Camejo, DM w/o complication Medicine DO type II, uncontrolled [address] [facility] [address] [address] (Primary Dx) KATIANA Vigil [address] [place], [place] [phone] [address] Social History Tobacco Use Types Packs/Day Years Used Date Smoking Tobacco: Never Assessed Sex Assigned at Date Recorded Not on file documented as of this encounter Plan of Treatment Not on filedocumented as of this encounter Visit Diagnoses Diagnosis Type II or unspecified type diabetes jasen litus without mention of complication, uncontrolled - Primary documented in this encounter Care Teams Resource Analyst Relationship Specialty Start Date End Date Antonio Jerez MD PCP - General 07/25/10 12/22/10 [address] [facility] [place] [address] documented as of this encounter
--- OUTSIDE RECORDS SUMMARY | 2022-02-12 12:17 | XMS_ITS | Encounter Summary ---
:1970 Author [facility] Address [address], [place] [address] Care Team Providers Name Role Phone Antonio Jerez MD Primary Care Provider Encounter Details Date Type Department Care Team Description 01/17/2009 [facility] Products Assembler Only CONVERSION CONVERSION Vane Zarate MD [address] [place], [place] [address] (Wo rk) Social History Tobacco Use Types Packs/Day Years Used Date Smoking Tobacco: Never Assessed Sex Assigned at Date Recorded Not on file documented as of this encounter Progress Notes Vane Zarate MD - 01/17/2009 12:01 AM CDT Progress Notes signed by Vane Zarate MD at 01/17/09 0731 Author: Vane Zarate MD Service: (none) Author Type: Physician Filed: 08/15/10 1640 Note Time: 01/17/09 0001 Status: Signed Sound Printer: Vane Zarate MD (Physician) blood work shows elevated ALT and GGT, and depakote level of 105. Advised patient we may need to look at different mood stabilizer. documented in this encounter Plan of Treatment Not on filedocumented as of this encounter Visit Diagnoses Not on filedocumented in this encounter Care Teams Cork Painter And Grader Relationship Specialty Start Date End Date Antonio Jerez MD PCP - General 07/25/10 12/22/10 [address] [place] [address] documented as of this encounter
--- OUTSIDE RECORDS SUMMARY | 2022-02-12 12:17 | XMS_ITS | Encounter Summary ---
:1970 Author Organization [employer] Address [address] [address] Care Team Providers Name Role Phone Antonio Jerez MD Primary Care Provider Encounter Details Date Type Department Care Team Description 12/01/2009 PN Conversion Only [facility] CONVERSION Richie Woodall MD [address] [place] [address] Social History Tobacco Use Types Packs/Day Years Used Date Smoking Tobacco: Never Assessed Sex Assigned at Date Recorded Not on file documented as of this encounter Plan of Treatment Not on filedocumented as of this encounter Visit Diagnoses Not on filedocumented in this encounter Care Teams Slat Basket Top Maker Relationship Specialty Start Date End Date Antonio Jerez MD PCP - General 07/25/10 12/22/10 [address] [place], [place] [address] documented as of this encounter
--- OUTSIDE RECORDS SUMMARY | 2022-02-12 12:17 | XMS_ITS | Encounter Summary ---
:1970 Author Organization [facility] Address [address] [place] [address] Care Team Providers Name Role Phone Antonio Jerez MD Primary Care Provider Encounter Details Date Type Department Care Team Description 06/24/2008 Office Visit [facility] Antonio Jerez MD [address] [facility] . [address] [place] [address] [place] [address] (Wo rk) Social History Tobacco Use Types Packs/Day Years Used Date Smoking Tobacco: Never Assessed Sex Assigned at Date Recorded Not on file documented as of this encounter Plan of Treatment Not on filedocumented as of this encounter Visit Diagnoses Not on filedocumented in this encounter Care Teams Prototype Deicer Assembler Relationship Specialty Start Date End Date Antonio Jerez MD PCP - General 07/25/10 12/22/10 [address] [place] [address] documented as of this encounter
--- OUTSIDE RECORDS SUMMARY | 2022-02-12 12:17 | XMS_ITS | Encounter Summary ---
:1970 [facility] Address [address] [address] Care Team Providers Name Role Phone Antonio Jerez MD Primary Care Provider Encounter Details Date Type Department Care Team Description 09/04/2010 PN Conversion Only [place] CONVERSION [address] [place] [address] Social History Tobacco Use Types Packs/Day Years Used Date Smoking Tobacco: Never Assessed Sex Assigned at Date Recorded Not on file documented as of this encounter Plan of Treatment Not on filedocumented as of this encounter Visit Diagnoses Not on filedocumented in this encounter Care Teams Agricultural Extension Specialist Relationship Specialty Start Date End Date Antonio Jerez MD PCP - General 07/25/10 12/22/10 [address] [place] [address] documented as of this encounter
--- OUTSIDE RECORDS SUMMARY | 2022-02-12 12:17 | XMS_ITS | Encounter Summary ---
:1970 Author [facility] Address [address] [place] [address] Care Team Providers Name Role Phone Michel Daniel MD Primary Care Provider Encounter Details Date Type Department Care Team Description 03/24/2009 Office Visit [facility] Michel Daniel MD [address] [facility] . [address] [place] [address] [place] [address] [phone] (Wo rk) Social History Tobacco Use Types Packs/Day Years Used Date Smoking Tobacco: Never Assessed Sex Assigned at Date Recorded Not on file documented as of this encounter Last Filed Vital Signs Vital Sign Reading Time Taken Comments Blood Pressure 128/76 03/24/2009 1:14 PM AGRICULTURAL EQUIPMENT OPERATOR Pulse 88 03/24/2009 1:14 PM AGRICULTURAL EQUIPMENT OPERATOR Temperature - - Respiratory Rate - - Oxygen Saturation - - Inhaled Oxygen Concentration - - Weight 99.5 kg (219 lb 4 oz) 03/24/2009 1:14 PM AGRICULTURAL EQUIPMENT OPERATOR C: 99.5kg Height - - Body Mass Index 31.46 06/24/2008 12:32 PM AGRICULTURAL EQUIPMENT OPERATOR documented in this encounter Progress Notes Michel Daniel MD - 03/24/2009 12:01 AM CST Progress Notes signed by Michel Daniel MD at 03/25/09 0748 Author: Michel Daniel MD Service: (none) Author Type: Physician Filed: 08/15/10 1824 Note Time: 03/24/09 0001 Status: Signed Jack Setter: Michel Daniel MD (Physician) NAME: SHARLENE VARNER MR#: [id number] ACCT: [id number] VISIT: [id number] DICTATING CLINICIAN: MICHEL DANIEL MD CONFIRM #: [id number] LOC: 1202 CLINIC PROGRESS NOTE DATE OF VISIT: 03/24/2009 SUBJECTIVE: : 1970. 39-year-old male who wants to discuss low back pain. Evidently about 10 days ago, he bumped his mid lumbar area. The area has been a little bit sore since that time. He sees a chiropractor about once a year. Rustam has bipolar disease and has been going through somewhat of a manic phase. He has recently had his medications adjusted. I saw him, actually 1 week ago, with some discomfort in his left ear, which was thought probably to be mild TMJ joint abnormality. He is on Risperdal. His blood sugar last week was 119. This was a nonfasting specimen. He has no radicular pain in his lower extremities. He has also wanted some printed information about smoking. OBJECTIVE: VS: BP: 128/76. P: 88. Wt: 219 lb. Goes from sitting to standing without a problem. Gait is normal. Stands fully erect. On forward flexion, reaches to about 3 inches from the floor. Some discomfort in the lower lumbar area on right left lateral bending. Seated leg extension normal bilaterally. ASSESSMENT: 1. Low back pain, muscular. 2. Bipolar disorder. 3. Tobacco abuse. PLAN: The patient was given printed information on smoking cessation. We discussed back exercises. He was given a pamphlet on back exercises. Strongly suggested he make some attempt to lose some weight. Recheck p.r.n. AAS:[id number] C: 03/24/09 16:45 CONFIRM #: [id number] CULTURAL EQUIPMENT OPERATOR documented in this encounter Plan of Treatment Not on filedocumented as of this encounter Visit Diagnoses Not on filedocumented in this encounter Care Teams Strategic Planning Manager Relationship Specialty Start Date End Date Michel Daniel MD PCP - General 07/25/10 12/22/10 [address] [place] [address] documented as of this encounter
--- OUTSIDE RECORDS SUMMARY | 2022-02-12 12:17 | XMS_ITS | Encounter Summary ---
:1970 Author Organization [facility] Address [address] [address] Care Team Providers Name Role Phone Antonio Jerez MD Primary Care Provider Encounter Details Date Type Department Care Team Description 10/08/2009 PN Conversion Only SP[facility]IT[facility] CONVERSION Richie Woodall MD [address] [place], [place] [address] Social History Tobacco Use Types Packs/Day Years Used Date Smoking Tobacco: Never Assessed Sex Assigned at Date Recorded Not on file documented as of this encounter Plan of Treatment Not on filedocumented as of this encounter Procedures Procedure Name Priority Date/Time Associated Comments Diagnosis [facility] STR[facility] Routine 10/08/2009 11:59 R esults for this ECHOCARDIOGRAM AM CDT procedure are in the results section. documented in this encounter Results [facility] Echocardiogram (10/08/2009 11:59 AM CDT) Specimen (Source) Anatomical Collection Method Collection Time Re ceived Time Location / / Volume Laterality 10/08/2009 11:59 AM CDT Narrative [facility] CONVERSION - 10/08/2009 11:59 AM CDT The results of this Stress Echo done on October 08, [address] [facility] may be viewed in [employer]. Erich Woodall MD PN ECHO ORDERABLES Performing Organization Address City/State/ZIP Code Phon e Number HP CONVERSION documented in this encounter Visit Diagnoses Not on filedocumented in this encounter Care Teams Hematology Nurse Relationship Specialty Start Date End Date Antonio Jerez MD PCP - General 07/25/10 12/22/[address] [place] [address] documented as of this encounter
--- OUTSIDE RECORDS SUMMARY | 2022-02-12 12:17 | XMS_ITS | Encounter Summary ---
:1970 [facility] Address [address], [place] [address] Care Team Providers Name Role Phone Antonio Jerez MD Primary Care Provider Encounter Details Date Type Department Care Team Description 12/22/2009 PN Conversion Only CONV FAMILIY Alexsander Mock MD [address] [place] [address] [place] [address] (Wo rk) Social History Tobacco Use Types Packs/Day Years Used Date Smoking Tobacco: Never Assessed Sex Assigned at Date Recorded Not on file documented as of this encounter Plan of Treatment Not on filedocumented as of this encounter Visit Diagnoses Not on filedocumented in this encounter Care Teams Puffer Tender Relationship Specialty Start Date End Date Antonio Jerez MD PCP - General 07/25/10 12/22/10 [address] [place], [place] [address] documented as of this encounter
--- OUTSIDE RECORDS SUMMARY | 2022-02-12 12:17 | XMS_ITS | Encounter Summary ---
:1970 Author Organization [facility] Address [address] [address] Care Team Providers Name Role Phone Antonio Jerez MD Primary Care Provider Encounter Details Date Type Department Care Team Description 11/29/2009 PN Conversion Only OTHER CONVERSION [address] [place] [address] Social History Tobacco Use Types Packs/Day Years Used Date Smoking Tobacco: Never Assessed Sex Assigned at Date Recorded Not on file documented as of this encounter Plan of Treatment Not on filedocumented as of this encounter Visit Diagnoses Not on filedocumented in this encounter Care Teams Plant Production Manager Relationship Specialty Start Date End Date Antonio Jerez MD PCP - General 07/25/10 12/22/10 [address] [place] [address] documented as of this encounter
--- OUTSIDE RECORDS SUMMARY | 2022-02-12 12:17 | XMS_ITS | Encounter Summary ---
:1970 [facility] Address [address] [address] Care Team Providers Name Role Phone Antonio Jerez MD Primary Care Provider Encounter Details Date Type Department Care Team Description 11/06/2009 PN Conversion Only OTHER CONVERSION [address] [place] [address] Social History Tobacco Use Types Packs/Day Years Used Date Smoking Tobacco: Never Assessed Sex Assigned at Date Recorded Not on file documented as of this encounter Plan of Treatment Not on filedocumented as of this encounter Visit Diagnoses Not on filedocumented in this encounter Care Teams Steak Tenderizer Machine Relationship Specialty Start Date End Date Antonio Jerez MD PCP - General 07/25/10 12/22/10 [address] [place] [address] documented as of this encounter
--- OUTSIDE RECORDS SUMMARY | 2022-02-12 12:17 | XMS_ITS | Encounter Summary ---
:1970 Author Organization [facility] Address [address] [place] [address] Care Team Providers Name Role Phone Antonio Jerez MD Primary Care Provider Encounter Details Date Type Department Care Team Description 08/20/2010 PN Conversion Only [facility] Antonio Jerez , Medicine MD [address] [facility] . [address] [place] [address] [place] [address] (Wo rk) Social History Tobacco Use Types Packs/Day Years Used Date Smoking Tobacco: Never Assessed Sex Assigned at Date Recorded Not on file documented as of this encounter Plan of Treatment Not on filedocumented as of this encounter Visit Diagnoses Not on filedocumented in this encounter Care Teams Milk Route Deliverer Relationship Specialty Start Date End Date Antonio Jerez MD PCP - General 07/25/10 12/22/10 [address] [place] [address] documented as of this encounter
--- OUTSIDE RECORDS SUMMARY | 2022-02-12 12:17 | XMS_ITS | Encounter Summary ---
:1970 [facility] Address [address] [place] [address] Care Team Providers Name Role Phone Lilian Persaud DO Primary Care Provider Reason for Visit Reason Comments Refill Encounter Details Date Type Department Care Team Description 01/08/2011 Refill [facility] Lilian Persaud DO Refill [address] [facility] . [address] [address] [place] [address] [place] [address] [phone] (Wo rk) Social History Tobacco Use Types Packs/Day Years Used Date Smoking Tobacco: Never Assessed Sex Assigned at Date Recorded Not on file documented as of this encounter Nursing Notes Cordelia Leyva, RN - 01/08/2011 2:43 PM CDT refill requested by pharmacy incorrect--refused refill--Metformin dose changed at last OV (see TRX 12/23) documented in this encounter Plan of Treatment Not on filedocumented as of this encounter Visit Diagnoses Diagnosis DM (diabetes mellitus) type II uncontrol led with renal manifestation - Primary Type II or unspecified type diabetes jasen litus with renal manifestations, uncontrolled documented in this encounter Care Teams Advertising Job Titles Relationship Specialty Start Date End Date Lilian Persaud DO PCP - General 12/23/10 05/16/12 [address] [place] [id number] documented as of this encounter
--- OUTSIDE RECORDS SUMMARY | 2022-02-12 12:17 | XMS_ITS | Encounter Summary ---
:1970 Author Organization [facility] [employer] Address [address] [place] [address] Care Team Providers Name Role Phone Antonio Jerez MD Primary Care Provider Reason for Visit Reason Comments Follow-up Refill Diabetes Encounter Details Date Type Department Care Team Description 12/11/2010 Office Visit Lilian Camejo, DM w/o complication type II, uncontrolled; Medicine DO Hypertriglyceridemia; [address] Nonspecific abnormal results [place] [address] [place], [place] [phone] [address] Social History Tobacco Use Types Packs/Day Years Used Date Smoking Tobacco: Never Assessed Sex Assigned at Date Recorded Not on file documented as of this encounter Last Filed Vital Signs Vital Sign Reading Time Taken Comments Blood Pressure 102/66 12/11/2010 2:17 PM CDT Pulse 104 12/11/2010 2:17 PM CDT Temperature - - Respiratory Rate - - Oxygen Saturation - - Inhaled Oxygen Concentration - - Weight 97.5 kg (215 lb) 12/11/2010 2:17 PM CDT Height - - Body Mass Index 30.85 11/25/2010 3:31 PM CDT documented in this encounter Progress Notes Lilian Persaud, - 12/12/2010 10:24 AM CDT SUBJECTIVE: History of present illness: 40 y.o. male presents for follow hospital stay for hyponatremia, diabetes. patient is here with his fianc??e. patient was diagnosed with diabetes one year ago and has been noncompliant with medications . He was supposed to be taking glipizide and never followed up or took the medication. he was seen by me November 25 , which point I did labs. He was found to have a sodium of 126 and sent to the emergency room for IV fluids and management. hospital discharge summary and records reviewed from [facility] from admission November 26 through November 27, 2010. patient had blood work done while at the hospital, that showed triglycerides 5637 and total cholesterol 559. his glucose initially was 515 . abnormal ohelectrolytes reviewed. patient was started on Lantus 10 units at bedtime, lisinopril 5 mg daily and Glucophage 500 mg b.i.d. , continue with glipizide 5 mg controlled release tablet ( the bottle he brought in to the office was glipizide 5 mg immediate release p.o. b.i.d., which differs from discharge summary). patient has not been taking Lantus since discharge from the hospital. He has been taking blood glucose checks 3 times a day with range 250 to 300. patient was also started on gemfibrozil 600 mg p.o. b.i.d. Patient denies any side effects from the medications . Patient has a history of elevated liver function tests , which he does not know much about as to why they were elevated or if he had a workup done at that time or medication as a trigger. patient declines diabetes education. patient reports his rash has resolved on his chest and back. patient still has a stye on his left upper lid, he has not made an appointment with the manager acute yet. patient has had procedure in the past to remove his diet, which caused a lot of bruising and he is getting in a couple weeks , so he does not want to do again. Lab Results Component Value Date/Time Aspartate Aminotransferase 20 06/19/2010 16:02 Aspartate Aminotransferase 62* 03/06/2009 19:50 Aspartate Aminotransferase 34 01/16/2009 11:28 Lab Results Component Value Date/Time Alk Phos 63 03/06/2009 19:50 Alk Phos 73 01/16/2009 11:28 Alk Phos 55 06/11/2008 16:59 Lab Results Component Value Date/Time Alanine Aminotransferase 37 06/19/2010 16:02 Past Medical History Diagnosis Date ??? Tobacco [...] DM w/o complication type II, uncontrolled 12/11/2010 No past surgical history on file. No [...] to encounter Medication Sig Dispense Refill ??? DISCONTD: aspirin 81 mg tablet Take 1 tablet by mouth daily (every 24 hours). 90 3 ??? DISCONTD: DEPAKOTE 500 mg EC tablet Take 5 tablets by mouth daily (every 24 hours). LW Comment:pat LW Addl Instr:PAT- BRAND ??? fluconazole (DIFLUCAN) 150 mg tablet Take 1 tablet by mouth once a week. 4 tablet 0 ??? gemfibrozil (LOPID) 600 mg tablet Take 600 mg by mouth 2 times daily (before meals). Take 1/2 hours before food. Indications: HYPERTRIGLYCERIDEMIA ??? DISCONTD: glipiZIDE (GLUCOTROL XL) 5 mg 24 hr tablet Take 1 tablet by mouth daily (every 24 hours). LW Addl Instr:Do not cut/crush/chew. Indicated for: Diabetes 90 3 ??? lisinopril (PRINIVIL, ZESTRIL) 5 mg tablet Take 5 mg by mouth daily (every 24 hours). Indications: HYPERTENSION ??? metFORMIN (GLUCOPHAGE) 500 mg tablet Take 500 mg by mouth 2 times daily (with meals). Indications: TYPE 2 DIABETES MELLITUS ??? DISCONTD: risperidone (RISPERDAL) 3 mg tablet Take 2 tablets by mouth nightly. 60 12 Allergies Allergen Reactions ??? Haloperidol LW Reaction: shock ??? Thiothixene LW Reaction: Muscle spasm ROS: otherwise negative with the exception of positives in HPI. OBJECTIVE: Filed Vitals: 12/11/10 1417 BP: 102/66 Pulse: 104 Weight: 215 lb (24765 g) General: Patient alert, in NAD. Head: Normocephalic. Eyes: PERRLA, full EOM. External exams normal with the exception of left upper eyelid margin has a large red papular lesion . no injection . no other swelling or edema. CV: RRR without murmurs, rubs or gallops. no lower extremity edema. Resp: Clear to auscultation without crackles, wheezes or distress. Abdomen: bowel sounds present, Soft, non-tender, without hepatosplenomegaly, masses, or hernias. Skin: No lesions. rash cleared. Psychiatric: Alert & oriented with normal affect and insight, does not appear depressed or anxious. Timur was seen today for follow-up and medication refill. Diagnoses and associated orders for this visit: Dm w/o complication type ii, uncontrolled Hypertriglyceridemia Liver function tests abnormal #*lw 6 Other Orders - divalproex (DEPAKOTE) 500 mg EC tablet; Take 2,000 mg by mouth DAILY MORNING LAB. Do not cut/crush/chew. Take with food. - glipiZIDE (GLUCOTROL XL) 5 mg 24 hr tablet; Take 5 mg by mouth 2 times daily at 8am and noon. Do not cut/crush/chew Indications: TYPE 2 DIABETES MELLITUS - risperiDONE (RISPERDAL) 4 mg tablet; Take 4 mg by mouth daily (every 24 hours). - lisinopril (PRINIVIL, ZESTRIL) 5 mg tablet; Take 5 mg by mouth daily (every 24 hours). Indications: HYPERTENSION - metFORMIN (GLUCOPHAGE) 500 mg tablet; Take 500 mg by mouth 2 times daily (with meals). Indications: TYPE 2 DIABETES MELLITUS - gemfibrozil (LOPID) 600 mg tablet; Take 600 mg by mouth 2 times daily (before meals). Take 1/2 hours before food. Indications: HYPERTRIGLYCERIDEMIA continue present treatment with lisinopril 5 mg daily. Patient advised this is to protect his kidneys with comorbid diabetes. Increase glipizide and changed to controlled-release for patient compliance if not covered by insurance, will go back to immediate release b.i.d. dosing and increase . Increase metformin from 500 mg b.i.d. to 500 mg t.i.d. patient advised of possible side effects of diarrhea. patient quite adamant about not doing insulin injections. patient will most certainly need more medication to manage his diabetes, however I do not want to overwhelm him or cause side effects from the medications that deter him from treatment . patient has history of noncompliance . monitor labs closely with a history of elevated liver function tests. check labs today . Patient advised to start aspirin 81 mg daily. patient also advised to take fish oil and flaxseed oil to help lower his triglycerides. new medication list printed and reviewed in detail with patient and fianc?? to avoid confusion with medications. patient refused diabetes education at this time. patient is on various medications that utilize hepatic metabolism, monitor liver function closely. patient advised to follow up in one to 2 weeks. patient discharged in stable condition. * recheck sodium today 129 with glucose 397, corrected sodium 134 . patient's triglycerides also affect sodium level, since the triglycerides are over 5000. documented in this encounter Plan of Treatment Not on filedocumented as of this encounter Visit Diagnoses Diagnosis Type II or unspecified type diabetes jasen litus without mention of complication, uncontrolled Hypertriglyceridemia (HRC) Pure hyperglyceridemia Nonspecific abnormal results of liver fu nction study documented in this encounter Care Teams Die Fitter Relationship Specialty Start Date End Date Antonio Jerez MD PCP - General 07/25/10 12/22/[address] [place] [address] documented as of this encounter
--- OUTSIDE RECORDS SUMMARY | 2022-02-12 12:17 | XMS_ITS | Encounter Summary ---
:1970 [facility] Address [address], [place] [address] Care Team Providers Name Role Phone Antonio Jerez MD Primary Care Provider Encounter Details Date Type Department Care Team Description 02/24/2009 Building Maintenance Repairer Only CONVERSION CONVERSION Vane Zarate MD [address] [place], [place] [address] (Wo rk) Social History Tobacco Use Types Packs/Day Years Used Date Smoking Tobacco: Never Assessed Sex Assigned at Date Recorded Not on file documented as of this encounter Progress Notes Vane Zarate MD - 02/24/2009 12:01 AM CST Progress Notes signed by Vane Zarate MD at 02/24/09 1102 Author: Vane Zarate MD Service: (none) Author Type: Physician Filed: 08/15/10 0770 Note Time: 02/24/09 0001 Status: Signed Grain Unloader: Vane Zarate MD (Physician) Please accept this note as documentation that Mr. Krishnamurthy will need to miss work until March 03 owing to medication adjustments. Thank you for your attention. ENT RELATIONS LIAISON documented in this encounter Plan of Treatment Not on filedocumented as of this encounter Visit Diagnoses Not on filedocumented in this encounter Care Teams Chain Machine Operator Relationship Specialty Start Date End Date Antonio Jerez MD PCP - General 07/25/10 12/22/10 [address] [place] [address] documented as of this encounter
--- OUTSIDE RECORDS SUMMARY | 2022-02-12 12:17 | XMS_ITS | Encounter Summary ---
:1970 Author Organization [facility] Address [address] [place] [address] Care Team Providers Name Role Phone Antonio Jerez MD Primary Care Provider Encounter Details Date Type Department Care Team Description 11/25/2010 Lab Visit [facility] DM w/o complication type II, [address] uncontrolled [place], [place] [address] Social History Tobacco Use Types Packs/Day Years Used Date Smoking Tobacco: Never Assessed Sex Assigned at Date Recorded Not on file documented as of this encounter Plan of Treatment Not on filedocumented as of this encounter Procedures Procedure Name Priority Date/Time Associated Diagnosis Comme nts HGB A1C Routine 11/25/2010 4:18 PM Results f or this CDT procedure are i n the results section. CREATININE / GFR Routine 11/25/2010 4:18 PM Type II or Resul ts for this CDT unspecified type procedure a re in diabetes mellitus the result s without mention of section. complication, uncontrolled (HRC) ELECTROLYTE PANEL Routine 11/25/2010 4:18 PM Type II or Resu lts for this CDT unspecified type procedure a re in diabetes mellitus the result s without mention of section. complication, uncontrolled (HRC) HGB A1C Routine 11/25/2010 4:18 PM Type II or Results f or this CDT unspecified type procedure a re in diabetes mellitus the result s without mention of section. complication, uncontrolled (HRC) VENIPUNCTURE (SOBEIDA) Routine 11/25/2010 4:09 PM Type II or Re sults for this CDT unspecified type procedure a re in diabetes mellitus the result s without mention of section. complication, uncontrolled (HRC) documented in this encounter Results (ABNORMAL) HGB A1C (11/25/2010 4:18 PM CDT) [facility] gist Method Time Signature Hemoglobin 10.0 (H) 0.0 - 6.0 HP CONVERSION A1CRM % Specimen Anatomical Collection Method Collection Time Receive d Time (Source) Location / / Volume Laterality 11/25/2010 4:18 PM 1 8:47 CDT PM CDT Narrative HP CONVERSION - 11/26/2010 1:31 PM CDT .Critical NA result of 126 called to an d read back by Mimi at [facility],.11/26/2010,12:15, by ALISHA Lilian Luther Coir SAL LAB_1 Performing Organization Address [facility] Phon e Number HP CONVERSION Hgb A1c (11/25/2010 4:18 PM CDT) athologist Signature HGB A1C See Note 0.0 - 6.0 % HP CONVERSION Comment: Elevated hemoglobin F (>5.0%) detected o n chromatogram which is interfering with the A1C. Specimen cox s been held for testing by an alternate method: See Hemo globin A1C. Specimen Anatomical Collection Method Collection Time Receive d Time (Source) Location / / Volume Laterality 11/25/2010 4:18 PM 1 8:47 CDT PM CDT Lilian Douglassjen SAL LAB_1 Performing Organization Address [facility] Phon e Number HP CONVERSION (ABNORMAL) Electrolyte Panel (11/25/2010 4:18 PM CDT) athologist Signature Sodium 126 (CL) 137 - 147 HP CONVERSION mEq/L Potassium 4.9 3.5 - 5.2 HP CONVERSION mEq/L Chloride 92 (L) 98 - 110 HP CONVERSION mEq/L Bicarbonate 23 23 - 33 HP CONVERSION mmol/L Specimen Anatomical Collection Method Collection Time Receive d Time (Source) Location / / Volume Laterality 11/25/2010 4:18 PM 1 8:05 CDT PM CDT Lilian Douglassjen SAL LAB_1 Performing Organization Address [facility] Phon e Number HP CONVERSION (ABNORMAL) Creatinine / GFR (11/25/2010 4:18 PM CDT) Patholo gist Method Time Signature Creatinine <0.1 (L) 0.4 - 1.3 HP CONVERSION Serum mg/dL [...] Time (Source) Location / / Volume Laterality 11/25/2010 4:18 PM 1 8:05 CDT PM CDT Narrative HP CONVERSION - 11/26/2010 11:57 AM CDT .Critical NA result of 126 called to an d read back by Mimi at [facility],.11/26/2010,12:15, by ALISHA Lilian Persaud DO LAB_1 Performing Organization Address [facility] Phon e Number HP CONVERSION VENIPUNCTURE (SOBEIDA) (11/25/2010 4:09 PM CDT) athologist Signature Venipuncture Done HP CONVERSION Specimen (Source) Anatomical Collection Method Collection Time Re ceived Time Location / / Volume Laterality 11/25/2010 4:09 PM CDT Narrative HP CONVERSION - 11/25/2010 4:09 PM CDT Performed at [facility], [address] [place] [address] Lilian Persaud DO LAB_1 Performing Organization Address [facility] Phon e Number HP CONVERSION documented in this encounter Visit Diagnoses Diagnosis Type II or unspecified type diabetes jasen litus without mention of complication, uncontrolled documented in this encounter Care Teams Industrial Gas Production Operator Relationship Specialty Start Date End Date Antonio Jerez MD PCP - General 07/25/10 12/22/[address] [place] [id number] documented as of this encounter
--- OUTSIDE RECORDS SUMMARY | 2022-02-12 12:17 | XMS_ITS | Encounter Summary ---
:1970 [facility] Organization [facility] Address [address] [place] [address] Care Team Providers Name Role Phone Michel Daniel MD Primary Care Provider Reason for Visit Reason Comments Other Encounter Details Date Type Department Care Team Description 12/16/2009 [facility] Other [address] [facility] . [address] [facility] [place] [address] [place] [address] [phone] (Wo rk) Social History Tobacco Use Types Packs/Day Years Used Date Smoking Tobacco: Never Assessed Sex Assigned at Date Recorded Not on file documented as of this encounter [facility], Message - 12/16/2009 10:03 AM CDT Phone Note filed by Dial[employer]Do at 08/15/10 3967 Author: [employer] Service: (none) Author Type: (none) Filed: 08/15/105 Note Time: 12/16/09 1003 Status: Signed Flasher Adjuster: [employer] (Resource) PRESCRIPTION REFILL Please provide enough refills to last until patient's next visit. Comment:- Pharmacy Seq #:-[phone] Pharmacy Name-Phone/Fax:-[facility] Street or City:-[place] Clinician Name:-Talisha Drug Name/Strength:-risperdal 3mg Sig: Dose/Route/Freq:-take 2 tabs po qhs Quantity & Last Fill:-60 10/08/09 *ECODE~PNRF Created on 16Dec2009 10:03am by ANALY LIM On 16Dec2009 11:55am MICHEL DANIEL wrote: sent Acknowledged by MICHEL DANIEL on 11:55am RN documented in this encounter Plan of Treatment Not on filedocumented as of this encounter Visit Diagnoses Not on filedocumented in this encounter Care Teams Construction Trades Contractor Relationship Specialty Start Date End Date Michel Daniel MD PCP - General 07/25/10 12/22/10 [address] [place] [id number] documented as of this encounter
--- OUTSIDE RECORDS SUMMARY | 2022-02-12 12:17 | XMS_ITS | Encounter Summary ---
:1970 Author Organization [facility] Address [address], [place] [address] Care Team Providers Name Role Phone Antonio Jerez MD Primary Care Provider Encounter Details Date Type Department Care Team Description 07/03/2008 Warp Tier Only CONVERSION CONVERSION Vane Zarate MD [address] [place], [place] [address] (Wo rk) Social History Tobacco Use Types Packs/Day Years Used Date Smoking Tobacco: Never Assessed Sex Assigned at Date Recorded Not on file documented as of this encounter Progress Notes Vane Zarate MD - 07/03/2008 12:01 AM CDT Progress Notes signed by Vane Zarate MD at 07/03/08 1730 Author: Vane Zarate MD Service: (none) Author Type: Physician Filed: 08/15/10 1137 Note Time: 07/03/08 0001 Status: Signed Machine Molder: Vane Zarate MD (Physician) Please accept this note as documentation that I saw Mr. Krishnamurthy today and he he appears to be restored to a euthymic state and also appears safe to drive. Thank you very much. documented in this encounter Plan of Treatment Not on filedocumented as of this encounter Visit Diagnoses Not on filedocumented in this encounter Care Teams Hotel Assistant Manager Relationship Specialty Start Date End Date Antonio Jerez MD PCP - General 07/25/10 12/22/10 [address] [place] [id number] documented as of this encounter
--- OUTSIDE RECORDS SUMMARY | 2022-02-12 12:17 | XMS_ITS | Encounter Summary ---
:1970 Author Organization [facility] Address [address] [address] Care Team Providers Name Role Phone Antonio Jerez MD Primary Care Provider Encounter Details Date Type Department Care Team Description 12/12/2009 PN Conversion Only CHEONDOISM CONVERSION Social History Tobacco Use Types Packs/Day Years Used Date Smoking Tobacco: Never Assessed Sex Assigned at Date Recorded Not on file documented as of this encounter Plan of Treatment Not on filedocumented as of this encounter Visit Diagnoses Not on filedocumented in this encounter Care Teams Gag Writer Relationship Specialty Start Date End Date Antonio Jerez MD PCP - General 07/25/10 12/22/[address] [place] [address] documented as of this encounter
--- OUTSIDE RECORDS SUMMARY | 2022-02-12 12:17 | XMS_ITS | Encounter Summary ---
:1970 Author Organization [employer] [facility] Address [address] [place] [address] Care Team Providers Name Role Phone Antonio Jerez MD Primary Care Provider Reason for Visit Reason Comments Test Request Encounter Details Date Type Department Care Team Description 12/18/2010 Telephone [place] [facility] Lilian Persaud, Test Request [address] [address] [place] [address] [place] [address] [phone] (Wo rk) Social History Tobacco Use Types Packs/Day Years Used Date Smoking Tobacco: Never Assessed Sex Assigned at Date Recorded Not on file documented as of this encounter Nursing Notes Herlinda Lucio HUC - 12/18/2010 12:15 PM CDT Message left informing patient. He is currently schedule for an appointment on the so this can be addressed then. Lab appointment updated. Lilian Castillo DO - 12/18/2010 8:38 AM CDT ok for pt to wait on labs another 2 weeks, he needs to follow up in the office for recheck within 2 weeks and I will order labs then. Herlinda Hopkins HUC - 12/18/2010 8:35 AM CDT Patient has a lab appointment today at 2:00. He recently had labs done on 11/25 and 12/11. Does he needto recheck so soon? If so, what labs are needed? documented in this encounter Plan of Treatment Not on filedocumented as of this encounter Visit Diagnoses Not on filedocumented in this encounter Care Teams Reinforcing Steel Placer Relationship Specialty Start Date End Date Antonio Jerez MD PCP - General 07/25/10 12/22/10 [facility] [address] documented as of this encounter
--- OUTSIDE RECORDS SUMMARY | 2022-02-12 12:17 | XMS_ITS | Encounter Summary ---
:1970 Author Organization [facility] Address [address] [place] [address] Care Team Providers Name Role Phone Antonio Jerez MD Primary Care Provider Encounter Details Date Type Department Care Team Description 06/19/2010 PN Conversion Only [place] CONVERSION Vane Zarate MD [address] [facility] [address] [place] [address] [address] [place] [address] Social History Tobacco Use Types Packs/Day Years Used Date Smoking Tobacco: Never Assessed Sex Assigned at Date Recorded Not on file documented as of this encounter Plan of Treatment Not on filedocumented as of this encounter Procedures Procedure Name Priority Date/Time Associated Comments Diagnosis CARNITINE FREE AND Routine 06/19/2010 4:02 PM Res ults for this TOTAL FARM OPERATIONS TECHNICAL DIRECTOR procedure are i n the results section. COMPLETE BLOOD Routine 06/19/2010 4:02 PM Results for this COUNT-W/DIFF FARM OPERATIONS TECHNICAL DIRECTOR procedure are i n the results section. DIFFERENTIAL Routine 06/19/2010 4:02 PM Results f or this FARM OPERATIONS TECHNICAL DIRECTOR procedure are i n the results section. AMYLASE Routine 06/19/2010 4:02 PM Results f or this FARM OPERATIONS TECHNICAL DIRECTOR procedure are i n the results section. VALPROIC ACID Routine 06/19/2010 4:02 PM Results for this (DEPAKENE) FARM OPERATIONS TECHNICAL DIRECTOR procedure are i n the results section. LIPASE Routine 06/19/2010 4:02 PM Results f or this FARM OPERATIONS TECHNICAL DIRECTOR procedure are i n the results section. GT (GAMMA GT) Routine 06/19/2010 4:02 PM Results for this FARM OPERATIONS TECHNICAL DIRECTOR procedure are i n the results section. AMMONIA Routine 06/19/2010 4:02 PM Results f or this FARM OPERATIONS TECHNICAL DIRECTOR procedure are i n the results section. ALT (SGPT) Routine 06/19/2010 4:02 PM Results f or this FARM OPERATIONS TECHNICAL DIRECTOR procedure are i n the results section. AST Routine 06/19/2010 4:02 PM Results f or this FARM OPERATIONS TECHNICAL DIRECTOR procedure are i n the results section. CK, TOTAL Routine 06/19/2010 4:02 PM Results f or this FARM OPERATIONS TECHNICAL DIRECTOR procedure are i n the results section. documented in this encounter Results (ABNORMAL) Differential (06/19/2010 4:02 PM FARM OPERATIONS TECHNICAL DIRECTOR) [employer] gist Method Time Signature Absolute 3.2 1.8 - 8.0 HP CONVERSION Neutrophils k/cmm Absolute 4.7 (H) 1.1 - 4.0 HP CONVERSION Lymphocytes k/cmm Absolute 0.7 0.2 - 0.8 HP CONVERSION Monocytes k/cmm Absolute 0.0 0.0 - 0.5 HP CONVERSION Eosinophils k/cmm Absolute 0.0 0.0 - 0.2 HP CONVERSION Basophils k/cmm RBC Morphology Normal No normal HP CONVERSION range Platelet Normal No normal HP CONVERSION Estimate range Specimen (Source) Anatomical Collection Method Collection Time Re ceived Time Location / / Volume Laterality 06/19/2010 4:02 PM FARM OPERATIONS TECHNICAL DIRECTOR Vane Zarate MD LAB_1 Performing Organization Address City/State/ZIP Code Phon e Number HP CONVERSION Ammonia (06/19/2010 4:02 PM FARM OPERATIONS TECHNICAL DIRECTOR) athologist Signature Ammon[place], Blood 32 0 - 44 HP CONVERSION umol/L Specimen (Source) Anatomical Collection Method Collection Time Re ceived Time Location / / Volume Laterality 06/19/2010 4:02 PM FARM OPERATIONS TECHNICAL DIRECTOR Vane Zarate MD LAB_1 Performing Organization Address City/State/ZIP Code Phon e Number HP CONVERSION CARNITINE FREE AND TOTAL (06/19/2010 4:02 PM FARM OPERATIONS TECHNICAL DIRECTOR) athologist Signature Carnitine, Free 30 25 - 60 HP CONVERSION umol/L Comment: faxed to [phone], 011,15:43, by STEDA Carnitine, Total 42 34 - 86 umol/L HP CONVE RSION Comment: faxed to [phone], 011,15:43, by MONICA Carnitine Esterified 12 5 - 29 umol/L HP CO NVERSION Comment: faxed to [phone], 011,15:43, by MONICA Carnitine Kristen/Free Ratio 0.4 0.1 - 1.0 HP CONVERSION Comment: faxed to [phone], 06/20/2010,15:43 , by MONICA Performed at [place] [address] 8 Specimen (Source) Anatomical Collection Method Collection Time Re ceived Time Location / / Volume Laterality 06/19/2010 4:02 PM FARM OPERATIONS TECHNICAL DIRECTOR Vane Zarate MD LAB_1 Performing Organization Address City/State/ZIP Code Phon e Number HP CONVERSION CK, Total (06/19/2010 4:02 PM FARM OPERATIONS TECHNICAL DIRECTOR) athologist Signature Creatine Kinase 73 0 - 225 HP CONVERSION U/L Specimen (Source) Anatomical Collection Method Collection Time Re ceived Time Location / / Volume Laterality 06/19/2010 4:02 PM FARM OPERATIONS TECHNICAL DIRECTOR Vane Zarate MD LAB_1 Performing Organization Address City/State/ZIP Code Phon e Number HP CONVERSION Lipase (06/19/2010 4:02 PM FARM OPERATIONS TECHNICAL DIRECTOR) athologist Signature Lipase 63 5 - 70 U/L HP CONVERSION Specimen (Source) Anatomical Collection Method Collection Time Re ceived Time Location / / Volume Laterality 06/19/2010 4:02 PM FARM OPERATIONS TECHNICAL DIRECTOR Vane Zarate MD LAB_1 Performing Organization Address City/State/ZIP Code Phon e Number HP CONVERSION Amylase (06/19/2010 4:02 PM FARM OPERATIONS TECHNICAL DIRECTOR) athologist Signature Amylase Serum 43 25 - 115 HP CONVERSION U/L Specimen (Source) Anatomical Collection Method Collection Time Re ceived Time Location / / Volume Laterality 06/19/2010 4:02 PM FARM OPERATIONS TECHNICAL DIRECTOR Vane Zarate MD LAB_1 Performing Organization Address City/State/ZIP Code Phon e Number HP CONVERSION ALT (SGPT) (06/19/2010 4:02 PM FARM OPERATIONS TECHNICAL DIRECTOR) [employer] gist Method Time Signature Alanine 37 4 - 55 HP CONVERSION Aminotransferase U/L Specimen (Source) Anatomical Collection Method Collection Time Re ceived Time Location / / Volume Laterality 06/19/2010 4:02 PM FARM OPERATIONS TECHNICAL DIRECTOR Vane Zarate MD LAB_1 Performing Organization Address City/[facility]/ZIP Code Phon e Number HP CONVERSION AST (06/19/2010 4:02 PM FARM OPERATIONS TECHNICAL DIRECTOR) [employer] gist Method Time Signature Aspartate 20 0 - 45 HP CONVERSION Aminotransferase U/L Specimen (Source) Anatomical Collection Method Collection Time Re ceived Time Location / / Volume Laterality 06/19/2010 4:02 PM FARM OPERATIONS TECHNICAL DIRECTOR Vane Zarate MD LAB_1 Performing Organization Address City/[facility]/ZIP Code Phon e Number HP CONVERSION (ABNORMAL) GT (Gamma GT) (06/19/2010 4:02 PM FARM OPERATIONS TECHNICAL DIRECTOR) [facility] Method Time Signature Gamma-Glutamyl 182 (H) 1 - 48 U/L HP CONVERSION Transferase Specimen (Source) Anatomical Collection Method Collection Time Re ceived Time Location / / Volume Laterality 06/19/2010 4:02 PM FARM OPERATIONS TECHNICAL DIRECTOR Vane Zarate MD LAB_1 Performing Organization Address [facility] Code Phon e Number HP CONVERSION Hemogram/Plts/Diff (06/19/2010 4:02 PM FARM OPERATIONS TECHNICAL DIRECTOR) P athologist Signature White Blood Cell 8.6 3.8 - 11.0 HP CONVERSIO N Count k/cmm Red Blood Cell 5.38 4.20 - HP CONVERSION Count 5.90 m/cmm Hemoglobin 16.8 13.4 - HP CONVERSION 17.5 g/dL Hematocrit 46.4 39.0 - HP CONVERSION 51.0 % Mean Corpuscular 86.2 80.0 - HP CONVERSION Volume 100.0 fL RDW 12.0 11.0 - HP CONVERSION 15.0 % Platelet Count 259 140 - 450 HP CONVERSION k/cmm Specimen (Source) Anatomical Collection Method Collection Time Re ceived Time Location / / Volume Laterality 06/19/2010 4:02 PM FARM OPERATIONS TECHNICAL DIRECTOR Vane Zarate MD LAB_1 Performing Organization Address City/[facility]/ZIP Code Phon e Number HP CONVERSION (ABNORMAL) Valproic Acid (Depakene) (06/19/2010 4:02 PM FARM OPERATIONS TECHNICAL DIRECTOR) [employer] gist Method Time Signature Date Last Dose 19jun2010 No normal HP CONVERSION Valproic Acid range Time Last Dose 1,000 No normal HP CONVERSION Valproic Acid range Valproic 136 (H) 50 - 100 HP CONVERSION Acid/Depakene ug/dL (Valp) Specimen (Source) Anatomical Collection Method Collection Time Re ceived Time Location / / Volume Laterality 06/19/2010 4:02 PM FARM OPERATIONS TECHNICAL DIRECTOR Vane Zarate MD LAB_1 Performing Organization Address City/State/ZIP Code Phon e Number HP CONVERSION documented in this encounter Visit Diagnoses Not on filedocumented in this encounter Care Teams Timber Mill Worker Relationship Specialty Start Date End Date Antonio Jerez MD PCP - General 07/25/10 12/22/10 [address] [facility] [place] [address] documented as of this encounter
--- OUTSIDE RECORDS SUMMARY | 2022-02-12 12:17 | XMS_ITS | Encounter Summary ---
:1970 Author Organization [email or web address] Address [address] [place] [address] Care Team Providers Name Role Phone Lilian Persaud DO Primary Care Provider Encounter Details Date Type Department Care Team Description 12/23/2010 Lab Visit [facility] Encounter for long-term [address] (current) use of other [place] [id number] medications [phone] Social History Tobacco Use Types Packs/Day Years Used Date Smoking Tobacco: Never Assessed Sex Assigned at Date Recorded Not on file documented as of this encounter Plan of Treatment Not on filedocumented as of this encounter Procedures Procedure Name Priority Date/Time Associated Diagnosis Comme nts CREATININE / GFR Routine 12/23/2010 2:44 PM Encounter for Resu lts for this CDT long-term (current) procedur e are in use of other the results medications section. ALT (SGPT) Routine 12/23/2010 2:44 PM Encounter for Results for this CDT long-term (current) procedur e are in use of other the results medications section. AST Routine 12/23/2010 2:44 PM Encounter for Results for this CDT long-term (current) procedur e are in use of other the results medications section. VENIPUNCTURE (SOBEIDA) Routine 12/23/2010 2:38 PM Encounter for R esults for this CDT long-term (current) procedur e are in use of other the results medications section. documented in this encounter Results Creatinine / GFR (12/23/2010 2:44 PM CDT) P athologist Signature Creatinine 0.7 0.4 - 1.3 [...] Time (Source) Location / / Volume Laterality 12/23/2010 2:44 PM 1 7:57 CDT PM CDT Narrative HP CONVERSION - 12/23/2010 8:20 PM CDT Performed at [facility], [address] [place] [address] Lilian Persaud DO LAB_1 Performing Organization Address [facility] Phon e Number HP CONVERSION AST (12/23/2010 2:44 PM CDT) [facility] Method Time Signature Aspartate 26 0 - 45 HP CONVERSION Aminotransferase U/L Specimen Anatomical Collection Method Collection Time Receive d Time (Source) Location / / Volume Laterality 12/23/2010 2:44 PM 1 7:57 CDT PM CDT Narrative HP CONVERSION - 12/23/2010 8:20 PM CDT Performed at [facility], [address] [place] [address] Lilian Persaud DO LAB_1 Performing Organization Address [facility] Phon e Number HP CONVERSION ALT (SGPT) (12/23/2010 2:44 PM CDT) [facility] Method Time Signature Alanine 38 4 - 55 HP CONVERSION Aminotransferase U/L Specimen Anatomical Collection Method Collection Time Receive d Time (Source) Location / / Volume Laterality 12/23/2010 2:44 PM 1 7:57 CDT PM CDT Narrative HP CONVERSION - 12/23/2010 8:20 PM CDT Performed at [facility], [address] [place] [address] Lilian Persaud DO LAB_1 Performing Organization Address [facility] Phon e Number HP CONVERSION VENIPUNCTURE (SOBEIDA) (12/23/2010 2:38 PM CDT) athologist Signature Venipuncture Done HP CONVERSION Specimen (Source) Anatomical Collection Method Collection Time Re ceived Time Location / / Volume Laterality 12/23/2010 2:38 PM CDT Narrative HP CONVERSION - 12/23/2010 2:38 PM CDT Performed at [facility], [address] [place], [place] [address] [address] Lilian Persaud DO LAB_1 Performing Organization Address City/State/ZIP Code Phon e Number HP CONVERSION documented in this encounter Visit Diagnoses Diagnosis Encounter for long-term (current) use of other medications documented in this encounter Care Teams Riding Teacher Relationship Specialty Start Date End Date Lilian Persaud DO PCP - General 12/23/10 05/16/[address] [place] [address] [place] [id number] documented as of this encounter
--- OUTSIDE RECORDS SUMMARY | 2022-02-12 12:17 | XMS_ITS | Encounter Summary ---
:1970 Author Organization [facility] Address [address], [place] [address] Care Team Providers Name Role Phone Antonio Jerez MD Primary Care Provider Encounter Details Date Type Department Care Team Description 07/13/2009 Office Visit [facility] [place] [address] [place] [address] Social History Tobacco Use Types Packs/Day Years Used Date Smoking Tobacco: Never Assessed Sex Assigned at Date Recorded Not on file documented as of this encounter Last Filed Vital Signs Vital Sign Reading Time Taken Comments Blood Pressure 132/90 07/13/2009 8:24 AM CDT Pulse 88 07/13/2009 8:24 AM CDT Temperature 37.3 ??C (99.1 ??F) 07/13/2009 8:24 AM CDT C: 37 .3 C Respiratory Rate 16 07/13/2009 8:24 AM CDT Oxygen Saturation 97% 07/13/2009 8:24 AM CDT Inhaled Oxygen Concentration - - Weight - - Height - - Body Mass Index - - documented in this encounter Progress Notes Hailee Villarreal MD - 07/13/2009 12:01 AM CDT NAME: SHARLENE VARNER MR#: [id number] ACCT: [id number] VISIT: [id number] DICTATING CLINICIAN: HAILEE VILLARREAL MD CONFIRM #: [id number] LOC: 520 CLINIC PROGRESS NOTE DATE OF VISIT: 07/13/2009 SUBJECTIVE: This 39-year-old male comes in with a few concerns. He has a history of bipolar and has been seen by a psychiatrist in the past. His primary psychiatrist is Dr. Vane Woo, currently does not work at [facility], and he has continued to see her in an outside clinic. He tells me the last time he saw her was in February. He is on a few psychiatric medications, currently Depakote and Risperdal. He tells me he has been under a lot of stress as he was laid off back in February. Now he comes in today because he has had problem sleeping for the past 2 nights. He feels that it could be stress related. Also, for the past hour or so he has felt short of breath. He denies any obvious chest pain. No wheezing or a history of asthma. He does admit to being under stress currently also. He has been taking some Benadryl 50 mg the past 2 nights to help him sleep. He is concerned because his mouth has been dry for the past 2 days. Also has had a cough and some nasal congestion, but no obvious sore throat for the past 2-3 days. No wheezing. He is a smoker. He used to smoke half a pack a day, but now smokes 1 pack a day. He denies any fevers or chills. He denies being depressed currently and denies any suicidal ideations. He is in urgent care with his fiancee. Overall, he is here to get some help, mostly because of problems sleeping and this feeling of shortness of breath. PAST MEDICAL HISTORY: Tobacco abuse, bipolar. MEDICATIONS: Reviewed in LastWord. ADR/ALLERGIES: HALDOL AND BLESSING. OBJECTIVE: VS: BP: 132/90. T: 99. P: 88. R: 16. O2 Saturation: 97% on room air. Exam shows the patient looking good, in no acute distress. He is alert, interactive, appropriate. He does not look depressed. Eyes show pupils equal, round and reactive to light. Extraocular motion is intact. Oral mucosa does not look obviously dry to me and throat shows minimal erythema. NECK: Supple. No lymph node palpable. LUNGS: Clear. CARDIOVASCULAR: Regular rhythm and rate. Normal S1, S2. ASSESSMENT: 1. Subjective feeling of shortness of breath, most probably related to stress and anxiety. 2. Recent insomnia. 3. Bipolar. 4. URI. PLAN: I do not find any physical cause for his shortness of breath and most probably this is related to his psychiatric problems. He is very worried that he has not been able to sleep and is requesting medications to help him sleep. He apparently has been given Xanax in the past and I do see 0.5 mg tablet in his prescription list which he has used in the past as needed. He feels that might help him sleep if he takes it at night. I did give him a prescription for Xanax 0.25 mg 1-2 tablets t.i.d. as needed and preferably at night. He was advised to contact his primary psychiatrist tomorrow and get their advice. Regarding his cold symptoms, basically would recommend symptomatic treatment. He should be rechecked if unusual worsening, fever or overall worsening shortness of breath, chest pains, as noted. I did advise him that while he takes Xanax at night to avoid taking Benadryl. [id number] C: 07/13/09 10:14 CONFIRM #: [id number] documented in this encounter Plan of Treatment Not on filedocumented as of this encounter Visit Diagnoses Not on filedocumented in this encounter Care Teams Strategy Execution Consultant Relationship Specialty Start Date End Date Antonio Jerez MD PCP - General 07/25/10 12/22/10 [facility] [place] [address] documented as of this encounter
--- OUTSIDE RECORDS SUMMARY | 2022-02-12 12:17 | XMS_ITS | Encounter Summary ---
:1970 Author Organization [facility] Address [address] [address] Care Team Providers Name Role Phone Antonio Jerez MD Primary Care Provider Encounter Details Date Type Department Care Team Description 06/19/2010 PN Conversion Only CAROLINE CONVERSION Arina Huff, [address] [place] [address] Social History Tobacco Use Types Packs/Day Years Used Date Smoking Tobacco: Never Assessed Sex Assigned at Date Recorded Not on file documented as of this encounter Plan of Treatment Not on filedocumented as of this encounter Visit Diagnoses Not on filedocumented in this encounter Care Teams Polysomnography Tech Relationship Specialty Start Date End Date Antonio Jerez MD PCP - General 07/25/10 12/22/10 [address] [id number] documented as of this encounter
--- OUTSIDE RECORDS SUMMARY | 2022-02-12 12:17 | XMS_ITS | Encounter Summary ---
:1970 Author Organization [email or web address] Address [address] [address] Care Team Providers Name Role Phone Antonio Jerez MD Primary Care Provider Encounter Details Date Type Department Care Team Description 12/21/2009 PN Conversion Only CONVERSION CONVERSION Ida Woodall MD [address] [place] [address] Social History Tobacco Use Types Packs/Day Years Used Date Smoking Tobacco: Never Assessed Sex Assigned at Date Recorded Not on file documented as of this encounter Plan of Treatment Not on filedocumented as of this encounter Visit Diagnoses Not on filedocumented in this encounter Care Teams Motion Picture Projectionist Relationship Specialty Start Date End Date Antonio Jerez MD PCP - General 07/25/10 12/22/10 [address] [place], [place] [id number] documented as of this encounter
--- OUTSIDE RECORDS SUMMARY | 2022-02-12 12:17 | XMS_ITS | Encounter Summary ---
:1970 Author Organization [facility] Address [address] [place] [address] Care Team Providers Name Role Phone Antonio Jerez MD Primary Care Provider Encounter Details Date Type Department Care Team Description 12/11/2010 Notes/Orders Lilian Camejo, Pure hyperglyceridemia; Medicine DO DM w/o complication type II, uncontrolle d [address] [facility] . [address] [place] [address] [place], [place] [phone] [address] Social History Tobacco Use Types Packs/Day Years Used Date Smoking Tobacco: Never Assessed Sex Assigned at Date Recorded Not on file documented as of this encounter Plan of Treatment Not on filedocumented as of this encounter Visit Diagnoses Diagnosis Pure hyperglyceridemia (HRC) Pure hyperglyceridemia Type II or unspecified type diabetes jasen litus without mention of complication, uncontrolled documented in this encounter Care Teams Engineering Design Supervisor Relationship Specialty Start Date End Date Antonio Jerez MD PCP - General 07/25/10 12/22/10 [address] [place] [address] documented as of this encounter
--- OUTSIDE RECORDS SUMMARY | 2022-02-12 12:17 | XMS_ITS | Encounter Summary ---
:1970 Author Organization [facility] Address [address] [place] [address] Care Team Providers Name Role Phone Antonio Jerez MD Primary Care Provider Encounter Details Date Type Department Care Team Description 03/06/2009 PN Conversion Only Vane Cox MD [address] [place] [address] [address] [place] [address] Social History Tobacco Use Types Packs/Day Years Used Date Smoking Tobacco: Never Assessed Sex Assigned at Date Recorded Not on file documented as of this encounter Plan of Treatment Not on filedocumented as of this encounter Procedures Procedure Name Priority Date/Time Associated Diagnosis Comme nts AMYLASE Routine 03/06/2009 7:50 PM Results f or this POLICE COMMANDING OFFICER procedure are i n the results section. GT (GAMMA GT) Routine 03/06/2009 7:50 PM Results for this POLICE COMMANDING OFFICER procedure are i n the results section. ALT (SGPT) Routine 03/06/2009 7:50 PM Results f or this POLICE COMMANDING OFFICER procedure are i n the results section. AST Routine 03/06/2009 7:50 PM Results f or this POLICE COMMANDING OFFICER procedure are i n the results section. ALKALINE Routine 03/06/2009 7:50 PM Results f or this PHOSPHATASE, TOTAL POLICE COMMANDING OFFICER procedure are in the results section. documented in this encounter Results (ABNORMAL) GT (Gamma GT) (03/06/2009 7:50 PM POLICE COMMANDING OFFICER) [facility] Method Time Signature Gamma-Glutamyl 169 (H) 1 - 48 U/L HP CONVERSION Transferase Specimen (Source) Anatomical Collection Method Collection Time Re ceived Time Location / / Volume Laterality 03/06/2009 7:50 PM POLICE COMMANDING OFFICER Vane Zarate MD LAB_1 Performing Organization Address City/[facility]/ZIP Code Phon e Number HP CONVERSION (ABNORMAL) AST (03/06/2009 7:50 PM POLICE COMMANDING OFFICER) [facility] gist Method Time Signature Aspartate 62 (H) 0 - 45 HP CONVERSION Aminotransferase U/L Specimen (Source) Anatomical Collection Method Collection Time Re ceived Time Location / / Volume Laterality 03/06/2009 7:50 PM POLICE COMMANDING OFFICER Vane Zarate MD LAB_1 Performing Organization Address City/[facility]/ZIP Code Phon e Number HP CONVERSION Amylase (03/06/2009 7:50 PM POLICE COMMANDING OFFICER) athologist Signature Amylase Serum 58 25 - 115 HP CONVERSION U/L Specimen (Source) Anatomical Collection Method Collection Time Re ceived Time Location / / Volume Laterality 03/06/2009 7:50 PM POLICE COMMANDING OFFICER Vane Zarate MD LAB_1 Performing Organization Address City/[facility]/ZIP Code Phon e Number HP CONVERSION (ABNORMAL) ALT (SGPT) (03/06/2009 7:50 PM POLICE COMMANDING OFFICER) [facility] gist Method Time Signature Alanine 58 (H) 4 - 55 HP CONVERSION Aminotransferase U/L Specimen (Source) Anatomical Collection Method Collection Time Re ceived Time Location / / Volume Laterality 03/06/2009 7:50 PM POLICE COMMANDING OFFICER Vane Zarate MD LAB_1 Performing Organization Address City/[facility] Code Phon e Number HP CONVERSION Alkaline Phosphatase, Total (03/06/2009 7:50 PM POLICE COMMANDING OFFICER) athologist Signature Alk Phos 63 25 - 135 U/L HP CONVERSION Specimen (Source) Anatomical Collection Method Collection Time Re ceived Time Location / / Volume Laterality 03/06/2009 7:50 PM POLICE COMMANDING OFFICER Vane Zarate MD LAB_1 Performing Organization Address City/[facility] Code Phon e Number HP CONVERSION documented in this encounter Visit Diagnoses Not on filedocumented in this encounter Care Teams Jumpbasting Collar Baster Relationship Specialty Start Date End Date Antonio Jerez MD PCP - General 07/25/10 12/22/10 [address] [facility] [place] [address] documented as of this encounter
[2022-02-12 12:18] LABS: Slide Review Reflex No
--- OUTSIDE RECORDS SUMMARY | 2022-02-12 12:18 | XMS_ITS | Encounter Summary ---
:1970 Author Organization [email or web address] Address [address], [place] [address] Care Team Providers Name Role Phone Antonio Jerez MD Primary Care Provider Encounter Details Date Type Department Care Team Description 09/17/2005 [facility] Armida Mtz MD [address] [facility] . [address] [place] [address] [place] [address] Social History Tobacco Use Types Packs/Day Years Used Date Smoking Tobacco: Never Assessed Sex Assigned at Date Recorded Not on file documented as of this encounter Last Filed Vital Signs Vital Sign Reading Time Taken Comments Blood Pressure 122/80 09/17/2005 3:20 PM CDT Pulse 100 09/17/2005 3:20 PM CDT Temperature 36.8 ??C (98.2 ??F) 09/17/2005 3:20 PM C: 36.8 C CDT Respiratory Rate - - Oxygen Saturation - - Inhaled Oxygen Concentration - - Weight 108 kg (237 lb 15.8 oz) 09/17/2005 3:20 PM C: 10 8.0kg CDT Height - - Body Mass Index - - documented in this encounter Progress Notes Armida Mtz MD - 09/17/2005 12:01 AM CDT Progress Notes signed by Armida Mtz MD at 09/18/05 4727 Author: Armida Mtz MD Service: (none) Author Type: Physician Filed: 08/14/10 1219 Note Time: 09/17/05 0001 Status: Signed Community Relations Liaison: Armida Mtz MD (Physician) NAME: SHARLENE VARNER MR: [id number] ACCT: [id number] VISIT: [id number] DICTATING CLINICIAN: ARMIDA MTZ MD JOB: [id number] CLINIC PROGRESS NOTE DATE OF VISIT: 09/17/2005 SUBJECTIVE: : 1970. The patient is here for swollen legs and possible swollen lymph glands. The patient is a 35-year-old just coming off of an episode of hypomania. He is followed by psychiatry. Has been on Zyprexa now. Apparently has been noted to have some possible extrapyramidal movements by his psychiatrist; however, there were no medications such as Cogentin or Benadryl added. He is to be followed in October by his psychiatrist. Patient has been rapidly gaining weight. His weight is up 18 pounds from less than a year ago and a lot of it from the recent use of Zyprexa. He complains also of ankle swelling for the last two weeks. He had twisted his left ankle and sprained it. He has not been very active. OBJECTIVE: VS: BP: 122/80. T: 98.3. P: 100. Wt: 238 lb. Patient shows me his right axilla, which he feels is somewhat swollen. He had a tetanus shot there. On palpation, there was not definitive lymph nodes palpable, however. Otherwise, he did not have any dystonic movements at this point. Patient's dose of Zyprexa has been lowered with the thought, apparently, of same. The patient is going to be allowed to return to work nearly full-time as of 09/23/05. ASSESSMENT: Ankle swelling, weight gain, recent hypomania, manic depressive disease, significant weight gain from Zyprexa. PLAN: Encouraged activity. No further evaluation of bilateral mild ankle edema was done at this point. Encouraged exercises and feet elevation when he returns home from work when he starts work. No specific treatment, also, of his dystonic movements. No significant lymphadenopathy was discovered in either his axillary or inguinal areas. Follow up with his psychiatrist Dr. Kevin Hanson [id number] C: 09/17/05 20:32 DOCUMENT: [id number] documented in this encounter Plan of Treatment Not on filedocumented as of this encounter Visit Diagnoses Not on filedocumented in this encounter Care Teams Customer Liaison Relationship Specialty Start Date End Date Antonio Jerez MD PCP - General 07/25/10 12/22/[address] [facility] [place] [address] documented as of this encounter
--- OUTSIDE RECORDS SUMMARY | 2022-02-12 12:18 | XMS_ITS | Encounter Summary ---
:1970 Author Organization [facility] Address [address] [place] [address] Care Team Providers Name Role Phone Michel Daniel MD Primary Care Provider Encounter Details Date Type Department Care Team Description 03/23/2006 Procedure Visit [facility] Michel Daniel, [address] [facility] [place] [address] [address] [facility] [phone] [place], [place] [address] (Wo rk) Social History Tobacco Use Types Packs/Day Years Used Date Smoking Tobacco: Never Assessed Sex Assigned at Date Recorded Not on file documented as of this encounter Progress Notes Michel Daniel MD - 03/23/2006 12:01 AM CST Progress Notes signed by Michel Daniel MD at 03/24/06 0926 Author: Michel Daniel MD Service: (none) Author Type: Physician Filed: 08/14/10 1556 Note Time: 03/23/06 0001 Status: Signed Wet Process Head Miller: Michel Daniel MD (Physician) NAME: SHARLENE VARNER MR#: [id number] ACCT: [id number] VISIT: [id number] DICTATING CLINICIAN: MICHEL DANIEL MD JOB: [id number] LOC: 1202 CLINIC PROGRESS NOTE DATE OF VISIT: 03/23/2006 SUBJECTIVE: : 1970. A 36-year-old male who has noted a small growth on the left side of the shaft of his penis. He previously has had penile warts. He would like to have this one removed. Sharlene has a history of bipolar disorder. He is currently actively followed in mental health by Dr. Hanson who last saw him in October. He states he is not taking Zyprexa at this time. He was seen by me this summer and was noted to have elevated blood sugars. Hemoglobin A1c was 6.6. His 2 hour blood sugar was 139. I did ask him to go to diabetic education for dietary consult. OBJECTIVE: Healthy appearing male. There is a small elevated grown shaft of his penis. It measures about 3 x 4 mm. Under aseptic conditions it is removed with sharp dissection. Bleeding controlled with silver nitrate. Is sent for pathologic report. We will obtain Hemoglobin A1c and random blood sugar today. I will get back to him with these results. ASSESSMENT: PLAN: [id number] C: 03/24/06 08:07 DOCUMENT: [id number] PERSON documented in this encounter Plan of Treatment Not on filedocumented as of this encounter Visit Diagnoses Not on filedocumented in this encounter Care Teams Book Repairer Relationship Specialty Start Date End Date Michel Daniel MD PCP - General 07/25/10 12/22/10 [address] [place] [address] documented as of this encounter
--- OUTSIDE RECORDS SUMMARY | 2022-02-12 12:18 | XMS_ITS | Encounter Summary ---
:1970 Author Organization [facility] Address [address] [address] Care Team Providers Name Role Phone Antonio Jerez MD Primary Care Provider Encounter Details Date Type Department Care Team Description 06/09/2008 Electric Motor Assembler And Tester [place] [address] [facility] [address] [phone] (Wo rk) Social History Tobacco Use Types Packs/Day Years Used Date Smoking Tobacco: Never Assessed Sex Assigned at Date Recorded Not on file documented as of this encounter Progress Notes Noemy Meade - 06/09/2008 12:01 AM CST Progress Notes signed by Noemy Meade MD at 06/09/08 1620 Author: Noemy Meade MD Service: (none) Author Type: Physician Filed: 08/15/10 1057 Note Time: 06/09/08 0001 Status: Signed Dinkey Operator Slag: Noemy Meade MD (Physician) Pt called front counter attendant this AM at 5:36 AM wanting to talk about the relationship with his girlfriend. He said they were playing house together and he felt things were moving a little too fast. This was making him somewhat anxious. He denied brisa or depression except for a mild decrease in sleep last night. No SI/HI. Reviewed his meds via last word. Asked him why he was calling and he said he wanted to start Zoloft because he tried a couple pills of his Dad's and felt better. Suggested from his Dr's previous note that it was suggested he have a retrial of Abilify at a lower dose if he started to have sxs again which he declined. Informed him since this didn't appear to be urgent that he should call his Dr's office on Tue which he agreed to do. ING MACHINE FILLER documented in this encounter Plan of Treatment Not on filedocumented as of this encounter Visit Diagnoses Not on filedocumented in this encounter Care Teams Activity Aid Relationship Specialty Start Date End Date Antonio Jerez MD PCP - General 07/25/10 12/22/[address] [place] [address] documented as of this encounter
--- OUTSIDE RECORDS SUMMARY | 2022-02-12 12:18 | XMS_ITS | Encounter Summary ---
:1970 Author Organization [facility] Address [address] [address] Care Team Providers Name Role Phone Antonio Jerez MD Primary Care Provider Encounter Details Date Type Department Care Team Description 08/04/2006 PN Conversion Only Kevin Blackburn, [address] [place] [address] [facility] [address] [place] [address] Social History Tobacco Use Types Packs/Day Years Used Date Smoking Tobacco: Never Assessed Sex Assigned at Date Recorded Not on file documented as of this encounter Plan of Treatment Not on filedocumented as of this encounter Procedures Procedure Name Priority Date/Time Associated Diagnosis Comme nts VALPROIC ACID Routine 08/04/2006 8:30 AM Results for this (DEPAKENE) CDT procedure are i n the results section. ALT (SGPT) Routine 08/04/2006 8:30 AM Results f or this CDT procedure are i n the results section. documented in this encounter Results (ABNORMAL) ALT (SGPT) (08/04/2006 8:30 AM CDT) [facility] gist Method Time Signature Alanine 59 (H) 4 - 55 HP CONVERSION Aminotransferase U/L Specimen (Source) Anatomical Collection Method Collection Time Re ceived Time Location / / Volume Laterality 08/04/2006 8:30 AM CDT Kevin Hanson MD LAB_1 Performing Organization Address City/State/ZIP Code Phon e Number HP CONVERSION (ABNORMAL) Valproic Acid (Depakene) (08/04/2006 8:30 AM CDT) Analysis Performed At Path logist Time Signature Time Last Dose 2,100 No normal HP CONVERSION Valproic Acid range Date Last Dose [id number] No normal HP CONVERSION Valproic Acid range Valproic 126 (H) 50 - 100 HP CONVERSION Acid/Depakene ug/mL (Valp) Specimen (Source) Anatomical Collection Method Collection Time Re ceived Time Location / / Volume Laterality 08/04/2006 8:30 AM CDT Kevin Hanson MD LAB_1 Performing Organization Address City/State/ZIP Code Phon e Number HP CONVERSION documented in this encounter Visit Diagnoses Not on filedocumented in this encounter Care Teams Memory Care Director Relationship Specialty Start Date End Date Antonio Jerez MD PCP - General 07/25/10 12/22/10 [facility] [place] [address] documented as of this encounter
--- OUTSIDE RECORDS SUMMARY | 2022-02-12 12:18 | XMS_ITS | Encounter Summary ---
:1970 Author Organization [facility] Address [address] [place] [address] Care Team Providers Name Role Phone Michel Daniel MD Primary Care Provider Encounter Details Date Type Department Care Team Description 10/04/2005 Office Visit [facility] Michel Daniel MD [address] [facility] . [address] [place] [address] [place] [address] [phone] (Wo rk) Social History Tobacco Use Types Packs/Day Years Used Date Smoking Tobacco: Never Assessed Sex Assigned at Date Recorded Not on file documented as of this encounter Last Filed Vital Signs Vital Sign Reading Time Taken Comments Blood Pressure 134/76 10/04/2005 11:55 AM CDT Pulse 96 10/04/2005 11:55 AM CDT Temperature - - Respiratory Rate - - Oxygen Saturation - - Inhaled Oxygen Concentration - - Weight 103 kg (227 lb 1.5 oz) 10/04/2005 11:55 AM C: 10 3.0kg CDT Height - - Body Mass Index - - documented in this encounter Progress Notes Michel Daniel MD - 10/04/2005 12:01 AM CDT Progress Notes signed by Michel Daniel MD at 10/06/05 0637 Author: Michel Daniel MD Service: (none) Author Type: Physician Filed: 08/14/10 1237 Note Time: 10/04/05 0001 Status: Signed Legal Support Specialist: Michel Daniel MD (Physician) NAME: SHARLENE VARNER MR: [id number] ACCT: [id number] VISIT: [id number] DICTATING CLINICIAN: MICHEL DANIEL MD JOB: [id number] CLINIC PROGRESS NOTE DATE OF VISIT: 10/04/2005 SUBJECTIVE: : 1970. Julius is in today at my direction. He was actually seen here several weeks ago. He is on Zyprexa. Because of that a blood sugar was carried out. His blood sugar was elevated. The patient is not a diabetic. His blood sugar was noted to be 221 in the mid day. He is now down to 2.5 mg of Zyprexa and is evidently being weaned. OBJECTIVE: VS: BP: 134/76. P: 96. Wt: 227. Random blood sugar today noted to be 76. Hemoglobin A1c is pending. ASSESSMENT: 1. Elevated blood sugar. 2. Bipolar disorder. PLAN: He will be seeing psychiatry shortly to discuss his medication. If his hemoglobin A1c is significantly elevated, will bring him back in for 2-hour glucose tolerance test and monitor his blood sugars. If it is normal, will just monitor his blood sugars periodically on and/or off Zyprexa. AAS:[id number] C: 10/05/05 10:37 DOCUMENT: [id number] documented in this encounter Plan of Treatment Not on filedocumented as of this encounter Visit Diagnoses Not on filedocumented in this encounter Care Teams Alcohol Still Operator Relationship Specialty Start Date End Date Michel Daniel MD PCP - General 07/25/10 12/22/10 [facility]5 [place] [address] documented as of this encounter
--- OUTSIDE RECORDS SUMMARY | 2022-02-12 12:18 | XMS_ITS | Encounter Summary ---
:1970 Author [facility] Address [address], [place] [address] Care Team Providers Name Role Phone Antonio Jerez MD Primary Care Provider Encounter Details Date Type Department Care Team Description 02/24/2007 Associate Dentist Only CONVERSION Kya Hewitt RN Social History Tobacco Use Types Packs/Day Years Used Date Smoking Tobacco: Never Assessed Sex Assigned at Date Recorded Not on file documented as of this encounter Progress Notes Mayda Natarajan RN - 02/24/2007 12:01 AM CDT Progress Notes signed by at 02/24/07 1551 Author: Mayda Natarajan RN Service: (none) Author Type: (none) Filed: 08/14/10 2249 Note Time: 02/24/07 0001 Status: Signed Electric Meter Repairer: Niko Barrios prior auth for [facility] approved #[id number] for as long as pt stays on plan-pharmacy called [facility] documented in this encounter Plan of Treatment Not on filedocumented as of this encounter Visit Diagnoses Not on filedocumented in this encounter Care Teams Pattern Weaver Relationship Specialty Start Date End Date Antonio Jerez MD PCP - General 07/25/10 12/22/10 [address] [facility] [place] [address] documented as of this encounter
--- OUTSIDE RECORDS SUMMARY | 2022-02-12 12:18 | XMS_ITS | Encounter Summary ---
:1970 Author Organization [facility] Address [address] [address] Care Team Providers Name Role Phone Antonio Jerez MD Primary Care Provider Encounter Details Date Type Department Care Team Description 01/11/2008 PN Conversion Only [place] [facility] [address] [address] [place] [address] Social History Tobacco Use Types Packs/Day Years Used Date Smoking Tobacco: Never Assessed Sex Assigned at Date Recorded Not on file documented as of this encounter Progress Notes Vane Zarate MD - 07/03/2008 12:01 AM CDT Progress Notes signed by Vane Zarate MD at 07/04/08 0640 Author: Vane Zarate MD Service: (none) Author Type: Physician Filed: 08/15/10 1137 Note Time: 07/03/08 0001 Status: Signed Commercial Loan Manager: Vane Zarate MD (Physician) [facility] Note SUBJECTIVE: 38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 p.r.n. which he is not using, Depakote 1500 mg b.i.d., temazepam 30 mg nightly p.r.n. which he is not using Symptoms of concern: Racing thoughts, insomnia, manic and hypomanic cognitions are all in remission sleep pattern: Sleeping 8 to 10 hours per night appetite: Normalized; it was excessive on Zyprexa social functioning: Improved; he is hoping to be able to repair the relationship with Ylena Substance Use: None occupational functioning: Return to work other: He is also requesting comments on his driving safety Adverse Drug Reactions: see LastWord OBJECTIVE: alert, oriented, in no acute physical distress. Was 20 minutes late for this appointment, as opposed to 45 minutes early which was the case when he was manic. He was calm, soft-spoken, relaxed, within normal level of psychomotor activity. That Yolanda was a God sent mood: Euthymic cognition: Intact anxiety level: Normal suicidality: none Homicidality: none Intoxication: none psychosis: none side effects: None yet ASSESSMENT: diagnoses: [place] 1: Bipolar disorder, most recently manic, now in remission [place] 2: None [place] 3: Lower back pain [place] 4: Mild [place] 5: 60 PLAN: Continue current medication. Note written per his request. time spent: 20 minutes return visit: Two weeks *SH~INEZ~dena documented in this encounter Plan of Treatment Not on filedocumented as of this encounter Visit Diagnoses Not on filedocumented in this encounter Care Teams Retail Pos Specialist Relationship Specialty Start Date End Date Antonio Jerez MD PCP - General 07/25/10 12/22/10 [facility] [place] [address] documented as of this encounter
--- OUTSIDE RECORDS SUMMARY | 2022-02-12 12:18 | XMS_ITS | Encounter Summary ---
:1970 Author Organization [facility] Address [address] [place] [address] Care Team Providers Name Role Phone Michel Daniel MD Primary Care Provider Encounter Details Date Type Department Care Team Description 02/28/2007 Office Visit [facility] Michel Daniel MD [address] [facility] . [address] [place] [address] [place] [address] [phone] (Wo rk) Social History Tobacco Use Types Packs/Day Years Used Date Smoking Tobacco: Never Assessed Sex Assigned at Date Recorded Not on file documented as of this encounter Last Filed Vital Signs Vital Sign Reading Time Taken Comments Blood Pressure 136/84 02/28/2007 2:19 PM SENIOR ELECTRONICS DESIGN ENGINEER Pulse 80 02/28/2007 2:19 PM SENIOR ELECTRONICS DESIGN ENGINEER Temperature - - Respiratory Rate - - Oxygen Saturation - - Inhaled Oxygen Concentration - - Weight 97.1 kg (213 lb 15.7 oz) 02/28/2007 2:19 PM SENIOR ELECTRONICS DESIGN ENGINEER C: 97.1kg Height - - Body Mass Index - - documented in this encounter Progress Notes Michel Daniel MD - 02/28/2007 12:01 AM CST Progress Notes signed by Michel Daniel MD at 03/06/07 0746 Author: Michel Daniel MD Service: (none) Author Type: Physician Filed: 08/14/10 5941 Note Time: 02/28/07 0001 Status: Signed Media Monitor: Michel Daniel MD (Physician) NAME: SHARLENE VARNER MR#: [id number] ACCT: [id number] VISIT: [id number] DICTATING CLINICIAN: MICHEL DANIEL MD JOB: [id number] LOC: 1202 CLINIC PROGRESS NOTE DATE OF VISIT: 02/28/2007 SUBJECTIVE: : 1970. A 37-year-old male with history of bipolar disorder who is in today stating that he would like to have his thyroid checked because he understands that an overactive thyroid could cause manic episodes. Rustam is under the care of Dr. Hanson in mental health and was seen there on 02/17. His note is reviewed. He recently has been started on Abilify. He is using 20 mg of this daily. He states that the drug has been a great help for him. Unfortunately, he continues to smoke. He is also on Cogentin and Depakote. There has been some weight loss since he stopped his Zyprexa, which he had been on a year ago, but his appetite is relatively good. OBJECTIVE: VS: BP: 136/84. P: 80. Wt: 214. A healthy-appearing, talkative male. ASSESSMENT: 1. Bipolar disorder. 2. Tobacco abuse. PLAN: We will obtain a TSH and I will get back to him with those results. I have told him the chances of him being hyperthyroid are very low. AAS:[id number] C: 03/01/07 16:00 DOCUMENT: [id number] OR ELECTRONICS DESIGN ENGINEER documented in this encounter Plan of Treatment Not on filedocumented as of this encounter Visit Diagnoses Not on filedocumented in this encounter Care Teams Casino Cage Cashier Relationship Specialty Start Date End Date Michel Daniel MD PCP - General 07/25/10 12/22/10 [facility]5 [place] [address] documented as of this encounter
--- OUTSIDE RECORDS SUMMARY | 2022-02-12 12:18 | XMS_ITS | Encounter Summary ---
:1970 [facility] Address [address], [place] [address] Care Team Providers Name Role Phone Antonio Jerez MD Primary Care Provider Encounter Details Date Type Department Care Team Description 10/08/2005 PN Conversion Only [place] [facility] Antonio Philip, [address] [place] [address] [address] [place], [place] [address] (Wo rk) Social History Tobacco Use Types Packs/Day Years Used Date Smoking Tobacco: Never Assessed Sex Assigned at Date Recorded Not on file documented as of this encounter Plan of Treatment Not on filedocumented as of this encounter Procedures Procedure Name Priority Date/Time Associated Diagnosis Comme nts GTT 2HR Routine 10/08/2005 11:04 AM Results for this CDT procedure are i n the results section . documented in this encounter Results GTT 2 Hr (10/08/2005 11:04 AM CDT) P athologist Signature Glucose, 81 mg/dL HP CONVERSION Fasting Glucose, 81 mg/dL HP CONVERSION Fasting Glucose, GTT - 139 mg/dL HP CONVERSION 2 Hour Comment: Normal study, criteria for the diagnosis of diabetes are NOT met. Specimen (Source) Anatomical Collection Method Collection Time Re ceived Time Location / / Volume Laterality 10/08/2005 11:04 AM CDT Antonio Jerez MD LAB_1 Performing Organization Address City/State/ZIP Code Phon e Number HP CONVERSION documented in this encounter Visit Diagnoses Not on filedocumented in this encounter Care Teams Automotive Tire Tester Relationship Specialty Start Date End Date Antonio Jerez MD PCP - General 07/25/10 12/22/10 [address] [place] [address] documented as of this encounter
--- OUTSIDE RECORDS SUMMARY | 2022-02-12 12:18 | XMS_ITS | Encounter Summary ---
:1970 Author Organization [facility] Address [address] [place] [address] Care Team Providers Name Role Phone Michel Daniel MD Primary Care Provider Reason for Visit Reason Comments Other Encounter Details Date Type Department Care Team Description 03/20/2007 Telephone [facility], Alphonso Belcher RN Other [address] [facility] . [place], [place] [address] Social History Tobacco Use Types Packs/Day Years Used Date Smoking Tobacco: Never Assessed Sex Assigned at Date Recorded Not on file documented as of this encounter Progress Notes Herlinda Lucio HUC - 03/20/2007 8:44 AM CST Phone Note filed by Herlinda Akbar MA at 08/12/10919 Author: Herlinda Akbar MA Service: (none) Author Type: (none) Filed: 08/12/10919 Note Time: 03/20/07843 Status: Signed Costume Mistress: Niko Conversion Medication Issue/Refill Caller Name/Relationship:simone Primary Resource Room Special Education Teacher:makenzie Comment/Symptom:pt is wondering if he should get more beta blockers Pharmacy [facility] Phone #[facility] Street or City:[place] Drug Name:metoprolol Strength:50mg Dose/Route/Freq:1/2 tab 2x daily Brand Recorder:simone Best call back number:[phone] Is it OK to leave a confidential message on this voicemail?yes Created on 20Mar2007 8:44am by HERLINDA AKBAR On 20Mar2007 9:39am MICHEL DANIEL wrote: There does not appear to be a reason to be on beta blockers Acknowledged by MICHEL DANIEL on 9:39am On 20Mar2007 10:38am ALPHONSO QUESADA wrote: info given to pt as above. Acknowledged by ALPHONSO QUESADA on 10:38am OR STOCK PLAN ADMINISTRATOR documented in this encounter Plan of Treatment Not on filedocumented as of this encounter Visit Diagnoses Not on filedocumented in this encounter Care Teams Program Manager Environmental Planning Relationship Specialty Start Date End Date Michel Daniel MD PCP - General 07/25/10 12/22/10 [address] [place] [address] documented as of this encounter
--- OUTSIDE RECORDS SUMMARY | 2022-02-12 12:18 | XMS_ITS | Encounter Summary ---
:1970 Author [facility] Address [address] [place] [address] Care Team Providers Name Role Phone Antonio Jerez MD Primary Care Provider Encounter Details Date Type Department Care Team Description 03/23/2006 PN Conversion Only [place] CONVERSION Antonio Jerez, [address] [facility] [place] [address] [address] [facility] [place] [address] (Wo rk) Social History Tobacco Use Types Packs/Day Years Used Date Smoking Tobacco: Never Assessed Sex Assigned at Date Recorded Not on file documented as of this encounter Plan of Treatment Not on filedocumented as of this encounter Procedures Procedure Name Priority Date/Time Associated Comments Diagnosis GLUCOSE Routine 03/23/2006 1:50 PM Results f or this FAMILY LITERACY COORDINATOR procedure are i n the results section. HGB A1C Routine 03/23/2006 1:50 PM Results f or this FAMILY LITERACY COORDINATOR procedure are i n the results section. HOSPITAL OBTAINED Routine 03/23/2006 1:48 PM Resu lts for this ANATOMICAL PATHOLOGY FAMILY LITERACY COORDINATOR procedu re are in REQUEST the results section. SURGICAL PATHYADY Routine 03/23/2006 1:43 PM Re sults for this [place] FAMILY LITERACY COORDINATOR procedure are i n the results section. documented in this encounter Results (ABNORMAL) Glucose (03/23/2006 1:50 PM FAMILY LITERACY COORDINATOR) P athologist Signature Lab Glucose 120 (H) 60 - 100 HP CONVERSION mg/dL Specimen (Source) Anatomical Collection Method Collection Time Re ceived Time Location / / Volume Laterality 03/23/2006 1:50 PM FAMILY LITERACY COORDINATOR Antonio Jerez MD LAB_1 Performing Organization Address City/State/ZIP Code Phon e Number HP CONVERSION Hgb A1c (03/23/2006 1:50 PM FAMILY LITERACY COORDINATOR) athologist Signature HGB A1C 5.4 <6.0 % HP CONVERSION Specimen (Source) Anatomical Collection Method Collection Time Re ceived Time Location / / Volume Laterality 03/23/2006 1:50 PM FAMILY LITERACY COORDINATOR Antonio Jerez MD LAB_1 Performing Organization Address City/[facility]/ZIP Code Phon e Number HP CONVERSION Anatomical Pathology Request (03/23/2006 1:48 PM FAMILY LITERACY COORDINATOR) athologist Signature Surgical Path Done No normal HP CONVERSION Ord range Specimen (Source) Anatomical Collection Method Collection Time Re ceived Time Location / / Volume Laterality 03/23/2006 1:48 PM FAMILY LITERACY COORDINATOR Antonio Jerez MD LAB_1 Performing Organization Address [facility]/[place] Code Phon e Number HP CONVERSION Pathology Report (03/23/2006 1:43 PM FAMILY LITERACY COORDINATOR) [facility] gist Method Time Signature Surgical SEE TEXT No normal HP CONVERSION Pathology range Comment: Patient: SHARLENE VARNER T ?S URGICAL PATHOLOGY REPORT Pathology # ??[id number] ?Date Obtained: ? Date Received: DIAGNOSIS: ?Skin, groin: ?- ??Benign squamous keratosis. ?Bi Alaniz M.D. ?(electronic signature) TRH/TRH/kmr Date of Report: 03/25/06 Pathology # ??[id number] ?Date Obtained: ? Date Received: ORGAN/TISSUE SITE: ?Groin GROSS DESCRIPTION: ?Received in formalin is a 0.3 x 0. 3 x 0.2 cm irregular whipple-pink skin. ??The ?surface of the skin displays a 0.2 cm pale lesion. ??The skin is inked and ?submitted in toto in cassette [id number]. MJL/dke MICROSCOPIC DESCRIPTION: ?Sections examined show skin with h yperkeratosis, hypergranulosis and ?acanthosis. ??There is no evidence of malignancy. ??No viral changes are ?seen. Specimen (Source) Anatomical Collection Method Collection Time Re ceived Time Location / / Volume Laterality 03/23/2006 1:43 PM FAMILY LITERACY COORDINATOR Antonio Jerez MD LAB_1 Performing Organization Address City/State/ZIP Code Phon e Number HP CONVERSION documented in this encounter Visit Diagnoses Not on filedocumented in this encounter Care Teams Customer Trainer Relationship Specialty Start Date End Date Antonio Jerez MD PCP - General 07/25/10 12/22/10 [address] [place] [address] documented as of this encounter
--- OUTSIDE RECORDS SUMMARY | 2022-02-12 12:18 | XMS_ITS | Encounter Summary ---
:[address] [facility] Address [address] [address] Care Team Providers Name Role Phone Antonio Jerez MD Primary Care Provider Encounter Details Date Type Department Care Team Description 02/28/2007 PN Conversion Only [place] CONVERSION Antonio Jerez, [address] [place] [address] [place] [address] (Wo rk) Social History Tobacco Use Types Packs/Day Years Used Date Smoking Tobacco: Never Assessed Sex Assigned at Date Recorded Not on file documented as of this encounter Plan of Treatment Not on filedocumented as of this encounter Procedures Procedure Name Priority Date/Time Associated Comments Diagnosis THYROID STIMULATING Routine 02/28/2007 2:40 PM Re sults for this HORMONE HRBP procedure are i n the results section. documented in this encounter Results Thyroid Stimulating Hormone (02/28/2007 2:40 PM HRBP) P athologist Signature Thyroid 1.50 0.20 - HP CONVERSION Stimulating 4.50 Hormone uIU/mL Specimen (Source) Anatomical Collection Method Collection Time Re ceived Time Location / / Volume Laterality 02/28/2007 2:40 PM HRBP Antonio Jerez MD LAB_1 Performing Organization Address City/State/ZIP Code Phon e Number HP CONVERSION documented in this encounter Visit Diagnoses Not on filedocumented in this encounter Care Teams Global Compensation Manager Relationship Specialty Start Date End Date Antonio Jerez MD PCP - General 07/25/10 12/22/[address] [place] [address] documented as of this encounter
--- OUTSIDE RECORDS SUMMARY | 2022-02-12 12:18 | XMS_ITS | Encounter Summary ---
:1970 Author Organization [facility] Address [address], [place] [address] Care Team Providers Name Role Phone Antonio Jerez MD Primary Care Provider Encounter Details Date Type Department Care Team Description 02/07/2007 PN Conversion Only [place] CON[facility] Mcneill, [address] [place] [address] [facility] [address] SOTO MD [address] Social History Tobacco Use Types Packs/Day Years Used Date Smoking Tobacco: Never Assessed Sex Assigned at Date Recorded Not on file documented as of this encounter Plan of Treatment Not on filedocumented as of this encounter Procedures Procedure Name Priority Date/Time Associated Diagnosis Comme nts GLUCOSE Routine 02/07/2007 8:22 AM Results f or this CDT procedure are i n the results section. VALPROIC ACID Routine 02/07/2007 8:22 AM Results for this (DEPAKENE) CDT procedure are i n the results section. ALT (SGPT) Routine 02/07/2007 8:22 AM Results f or this CDT procedure are i n the results section. documented in this encounter Results ALT (SGPT) (02/07/2007 8:22 AM CDT) [facility] gist Method Time Signature Alanine 44 4 - 55 HP CONVERSION Aminotransferase U/L Specimen (Source) Anatomical Collection Method Collection Time Re ceived Time Location / / Volume Laterality 02/07/2007 8:22 AM CDT Kevin Hanson MD LAB_1 Performing Organization Address City/State/ZIP Code Phon e Number HP CONVERSION Glucose (02/07/2007 8:22 AM CDT) P athologist Signature Length Of Fast 10.0 Hours HP CONVERSION Lab Glucose 96 60 - 100 HP CONVERSION mg/dL Specimen (Source) Anatomical Collection Method Collection Time Re ceived Time Location / / Volume Laterality 02/07/2007 8:22 AM CDT Kevin Hanson MD LAB_1 Performing Organization Address City/State/ZIP Code Phon e Number HP CONVERSION (ABNORMAL) Valproic Acid (Depakene) (02/07/2007 8:22 AM CDT) Analysis Performed At Patho logist Time Signature Time Last Dose 0830 No normal HP CONVERSION Valproic Acid range Date Last Dose [id number] No normal HP CONVERSION Valproic Acid range Valproic 47 (L) 50 - 100 HP CONVERSION Acid/Depakene ug/mL (Valp) Specimen (Source) Anatomical Collection Method Collection Time Re ceived Time Location / / Volume Laterality 02/07/2007 8:22 AM CDT Kevin Hanson MD LAB_1 Performing Organization Address City/State/ZIP Code Phon e Number HP CONVERSION documented in this encounter Visit Diagnoses Not on filedocumented in this encounter Care Teams Plug Shaper Hand Relationship Specialty Start Date End Date Antonio Jerez MD PCP - General 07/25/10 12/22/10 [facility]5 [place] [address] documented as of this encounter
--- OUTSIDE RECORDS SUMMARY | 2022-02-12 12:18 | XMS_ITS | Encounter Summary ---
:1970 Author [facility] Address [address] [place] [address] Care Team Providers Name Role Phone Antonio Jerez MD Primary Care Provider Encounter Details Date Type Department Care Team Description 06/11/2008 Environmental Remediation Consultant Only CONVERSION CONVERSION Vane Zarate MD [address] [place], [place] [address] (Wo rk) Social History Tobacco Use Types Packs/Day Years Used Date Smoking Tobacco: Never Assessed Sex Assigned at Date Recorded Not on file documented as of this encounter Progress Notes Vane Zarate MD - 06/11/2008 12:01 AM CST Progress Notes signed by Vane Zarate MD at 06/11/08 0849 Author: Vane Zarate MD Service: (none) Author Type: Physician Filed: 08/15/10 1059 Note Time: 06/11/08 0001 Status: Signed Audio Video Repairer: Vane Zarate MD (Physician) patient did not appear for this appointment. he was seen in an urgent appointment yesterday; t withhis one might have been scheduled as a backup or in error. 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
--- OUTSIDE RECORDS SUMMARY | 2022-02-12 12:18 | XMS_ITS | Encounter Summary ---
:1970 Author [facility] Address [address], [place] [address] Care Team Providers Name Role Phone Antonio Jerez MD Primary Care Provider Encounter Details Date Type Department Care Team Description 08/11/2006 Rat Culturist Only CONVERSION Kya Hewitt RN Social History Tobacco Use Types Packs/Day Years Used Date Smoking Tobacco: Never Assessed Sex Assigned at Date Recorded Not on file documented as of this encounter Progress Notes Mayda Natarajan RN - 08/11/2006 12:01 AM CDT Progress Notes signed by at 08/11/06 0905 Author: Mayda Natarajan RN Service: (none) Author Type: (none) Filed: 08/14/10 1851 Note Time: 08/11/06 0001 Status: Signed Recruiting Specialist: Niko Barrios prior auth for Zyprexa 5 mg approved through 08/11/07 #[id number] Pharmacy called [facility] documented in this encounter Plan of Treatment Not on filedocumented as of this encounter Visit Diagnoses Not on filedocumented in this encounter Care Teams Research Animal Attendant Relationship Specialty Start Date End Date Antonio Jerez MD PCP - General 07/25/10 12/22/10 [address] [facility] [place] [address] documented as of this encounter
--- OUTSIDE RECORDS SUMMARY | 2022-02-12 12:18 | XMS_ITS | Encounter Summary ---
:1970 Author [facility] Address [address] [address] Care Team Providers Name Role Phone Antonio Jerez MD Primary Care Provider Encounter Details Date Type Department Care Team Description 03/23/2006 PN Conversion Only CAROLINE CONVERSION Antonio Jerez, [address] [place] [address] [place] [place] [address] (Wo rk) Social History Tobacco Use Types Packs/Day Years Used Date Smoking Tobacco: Never Assessed Sex Assigned at Date Recorded Not on file documented as of this encounter Plan of Treatment Not on filedocumented as of this encounter Visit Diagnoses Not on filedocumented in this encounter Care Teams Freelance Director Relationship Specialty Start Date End Date Antonio Jerez MD PCP - General 07/25/10 12/22/10 [address] [address] documented as of this encounter
--- OUTSIDE RECORDS SUMMARY | 2022-02-12 12:18 | XMS_ITS | Encounter Summary ---
:1970 Author Organization [facility] Address [address] [address] Care Team Providers Name Role Phone Antonio Jerez MD Primary Care Provider Encounter Details Date Type Department Care Team Description 06/11/2008 PN Conversion [place] [address] [place] [address] [address] [place] [address] Social History Tobacco Use Types Packs/Day Years Used Date Smoking Tobacco: Never Assessed Sex Assigned at Date Recorded Not on file documented as of this encounter Plan of Treatment Not on filedocumented as of this encounter Procedures Procedure Name Priority Date/Time Associated Comments Diagnosis ELECTROLYTES (NA, K, Routine 06/11/2008 4:59 PM R esults for this CL, BICARB) AUTOMATION ANALYST procedure are i n the results section. COMPLETE BLOOD Routine 06/11/2008 4:59 PM Results for this COUNT-W/DIFF AUTOMATION ANALYST procedure are i n the results section. AMYLASE Routine 06/11/2008 4:59 PM Results f or this AUTOMATION ANALYST procedure are i n the results section. VALPROIC ACID Routine 06/11/2008 4:59 PM Results for this (DEPAKENE) AUTOMATION ANALYST procedure are i n the results section. ALT (SGPT) Routine 06/11/2008 4:59 PM Results f or this AUTOMATION ANALYST procedure are i n the results section. AST Routine 06/11/2008 4:59 PM Results f or this AUTOMATION ANALYST procedure are i n the results section. ALKALINE PHOSPHATASE, Routine 06/11/2008 4:59 PM Results for this TOTAL AUTOMATION ANALYST procedure are i n the results section. documented in this encounter Results (ABNORMAL) Complete Blood Count-W/Diff (06/11/2008 4:59 PM AUTOMATION ANALYST) [facility] Method Time Signature White Blood Cell 8.2 3.8 - 11.0 HP CONVERSIO N Count K/cmm Red Blood Cell 4.94 4.20 - HP CONVERSION Count 5.90 m/cmm Hemoglobin 15.3 13.4 - HP CONVERSION 17.5 gm/dL Hematocrit 44.0 39.0 - HP CONVERSION 51.0 % Mean Corpuscular 88.9 80.0 - HP CONVERSION Volume 100.0 fl Mean Corpuscular 31.0 27.0 - HP CONVERSION Hemoglobin 34.0 pg Mean Corpuscular 34.9 32.0 - HP CONVERSION Hemoglobin Conc 36.5 gm/dL Sledge RDW 11.0 11.0 - HP CONVERSION 15.0 % Platelet Count 202 140 - 450 HP CONVERSION k/cmm Differential Auto-Dif No normal HP CONVERSION Verify range Neutrophils 3.3 2.0 - 7.5 HP CONVERSION Absolute Count K/cmm Neutrophil 40.3 (L) 50.0 - HP CONVERSION 75.0 % Lymphocyte % 43.2 (H) 20.0 - HP CONVERSION 40.0 % Monocyte 13.7 5.0 - 14.0 HP CONVERSION % Eosinophil 1.7 0.0 - 6.0 HP CONVERSION % Basophil % 1.1 0.0 - 2.0 HP CONVERSION % Specimen (Source) Anatomical Collection Method Collection Time Re ceived Time Location / / Volume Laterality 06/11/2008 4:59 PM AUTOMATION ANALYST Vane Zarate MD LAB_1 Performing Organization Address City/State/ZIP Code Phon e Number HP CONVERSION Alkaline Phosphatase, Total (06/11/2008 4:59 PM AUTOMATION ANALYST) athologist Signature Alk Phos 55 25 - 135 U/L HP CONVERSION Specimen (Source) Anatomical Collection Method Collection Time Re ceived Time Location / / Volume Laterality 06/11/2008 4:59 PM AUTOMATION ANALYST Vane Zarate MD LAB_1 Performing Organization Address City/State/ZIP Code Phon e Number HP CONVERSION ALT (SGPT) (06/11/2008 4:59 PM AUTOMATION ANALYST) [facility] Method Time Signature Alanine 40 4 - 55 HP CONVERSION Aminotransferase U/L Specimen (Source) Anatomical Collection Method Collection Time Re ceived Time Location / / Volume Laterality 06/11/2008 4:59 PM AUTOMATION ANALYST Vane Zarate MD LAB_1 Performing Organization Address City/[facility]/ZIP Code Phon e Number HP CONVERSION Amylase (06/11/2008 4:59 PM AUTOMATION ANALYST) P athologist Signature Amylase Serum 53 25 - 115 HP CONVERSION U/L Specimen (Source) Anatomical Collection Method Collection Time Re ceived Time Location / / Volume Laterality 06/11/2008 4:59 PM AUTOMATION ANALYST Vane Zarate MD LAB_1 Performing Organization Address City/[facility]/ZIP Code Phon e Number HP CONVERSION AST (06/11/2008 4:59 PM AUTOMATION ANALYST) Patholo gist Method Time Signature Aspartate 45 0 - 45 HP CONVERSION Aminotransferase U/L Specimen (Source) Anatomical Collection Method Collection Time Re ceived Time Location / / Volume Laterality 06/11/2008 4:59 PM AUTOMATION ANALYST Vane Zarate MD LAB_1 Performing Organization Address City/[facility]/ZIP Code Phon e Number HP CONVERSION Electrolytes (NA, K, CL, Bicarb) (06/11/2008 4:59 PM AUTOMATION ANALYST) P athologist Signature Sodium 139 137 - 147 HP CONVERSION mEq/L Potassium 4.3 3.5 - 5.2 HP CONVERSION mEq/L Chloride 104 98 - 110 HP CONVERSION mEq/L Bicarbonate 26 23 - 33 HP CONVERSION mmol/L Specimen (Source) Anatomical Collection Method Collection Time Re ceived Time Location / / Volume Laterality 06/11/2008 4:59 PM AUTOMATION ANALYST Vane Zarate MD LAB_1 Performing Organization Address City/[facility] Phon e Number HP CONVERSION Valproic Acid (Depakene) (06/11/2008 4:59 PM AUTOMATION ANALYST) Analysis Performed At Patho logist Time Signature Time Last Dose 0900 No normal HP CONVERSION Valproic Acid range Date Last Dose [id number] No normal HP CONVERSION Valproic Acid range Valproic 86 50 - 100 HP CONVERSION Acid/Depakene ug/mL (Valp) Specimen (Source) Anatomical Collection Method Collection Time Re ceived Time Location / / Volume Laterality 06/11/2008 4:59 PM AUTOMATION ANALYST Vane Zarate MD LAB_1 Performing Organization Address City/State/ZIP Code Phon e Number HP CONVERSION documented in this encounter Visit Diagnoses Not on filedocumented in this encounter Care Teams Deck Worker Relationship Specialty Start Date End Date Antonio Jerez MD PCP - General 07/25/10 12/22/10 [address] [facility] [place] [address] documented as of this encounter
--- OUTSIDE RECORDS SUMMARY | 2022-02-12 12:19 | XMS_ITS | Encounter Summary ---
:[address] [facility] Address [address] [address] Care Team Providers Name Role Phone Antonio Jerez MD Primary Care Provider Encounter Details Date Type Department Care Team Description 12/12/2000 PN Conversion Only SYNAGOGUE CONVERSION Kvng Jerez MD [address] [place], [place] [address] (Wo rk) Social History Tobacco Use Types Packs/Day Years Used Date Smoking Tobacco: Never Assessed Sex Assigned at Date Recorded Not on file documented as of this encounter Plan of Treatment Not on filedocumented as of this encounter Visit Diagnoses Not on filedocumented in this encounter Care Teams Buildings Painter Relationship Specialty Start Date End Date Antonio Jerez MD PCP - General 07/25/10 12/22/10 [address] [place] [address] documented as of this encounter
--- OUTSIDE RECORDS SUMMARY | 2022-02-12 12:19 | XMS_ITS | Encounter Summary ---
:1970 Author Organization [facility] Address [address] [address] Care Team Providers Name Role Phone Antonio Jerez MD Primary Care Provider Encounter Details Date Type Department Care Team Description 07/09/2003 Early Childhood Aide Classroom Only CONVERSION CONVERSION Delphine Malin i, APRN, CNS [address] [place] [address] (Wo rk) Social History Tobacco Use Types Packs/Day Years Used Date Smoking Tobacco: Never Assessed Sex Assigned at Date Recorded Not on file documented as of this encounter Progress Notes Farida Malin APRN, CNS - 07/09/2003 12:01 AM CST Progress Notes signed by SHERIF Bell at 07/09/03 0931 Author: SHERIF Bell Service: (none) Author Type: Clinical Nurse Specialist Filed: 08/13/10 192 Note Time: 07/09/03 0001 Status: Signed Automotive Service Professional: SHERIF Bell (Clinical Nurse Specialist) Pt call, not clear on what he wanted. Remarked that he wanted me to talk with his fiance, advised I was unable to do that with no TOMMY. Pr. speech was somewhat rapid, flight of ideas, frequntly interrupting, some irritation in voice. Saw Dr. Aquino yesterday, restarted Seroquel 100mg at hs. Advised pt to stay the course, he agrees. To f/u with Dr. Aquino in two weeks. TING GALLERY OPERATOR documented in this encounter Plan of Treatment Not on filedocumented as of this encounter Visit Diagnoses Not on filedocumented in this encounter Care Teams Mitten Sewer Relationship Specialty Start Date End Date Antonio Jerez MD PCP - General 07/25/10 12/22/10 [address] [facility] [place] [address] documented as of this encounter
--- OUTSIDE RECORDS SUMMARY | 2022-02-12 12:19 | XMS_ITS | Encounter Summary ---
:1970 Author Organization [facility] Address [address] [place] [address] Care Team Providers Name Role Phone Michel Daniel MD Primary Care Provider Encounter Details Date Type Department Care Team Description 04/03/2003 PN Conversion Only [facility] Michel Daniel , [facility] MD [address] [facility] . [address] [place] [address] [place] [address] [phone] (Wo rk) Social History Tobacco Use Types Packs/Day Years Used Date Smoking Tobacco: Never Assessed Sex Assigned at Date Recorded Not on file documented as of this encounter Progress Notes Michel Daniel MD - 04/03/2003 12:01 AM CST Progress Notes signed by Michel Daniel MD at 04/03/03 1759 Author: Michel Daniel MD Service: (none) Author Type: Physician Filed: 08/13/10 1738 Note Time: 04/03/03 0001 Status: Signed Press Feeder: Michel Daniel MD (Physician) NAME: SHARLENE VARNER MR: [id number] ACCT: [id number] VISIT: [id number] DICTATING CLINICIAN: MICHEL DANIEL MD JOB: [id number] CLINIC PROGRESS NOTE DATE OF VISIT: 04/03/2003 SUBJECTIVE: : 1970. Rustam is in today because he has had recurrence of some penile varicoid lesions. Rustam has a history of bipolar disorder he is on Depakote at 1500 mg twice a day. He is seen by Dr. Kevin Hanson in psychiatry. His last visit was in September. At that time his Depakote level was slightly elevated at 123 with a therapeutic level being between 50 and 100. Rustam continues to work at [employer]. He is working 40 hours a week. He now has insurance through his work and he is feeling very good about being independent and not on medical assistance at this time. OBJECTIVE: VS: BP1: 152/72. BP2: 124/74. Wt: 207. There are at least 6 small varicoid lesions on the penile shaft. Rustam is quite relaxed today. Not real hyper. ASSESSMENT: 1. Bipolar disorder doing well. 2. Recurrence of penile warts. PLAN: Under Xylocaine analgesia all the warts are destroyed with a hot stick. Will set up CBC, ALT, AST, and Depakote level today, and he will follow up with Dr. Hanson. He is to see me on a p.r.n. basis. TT: CT: AAS:[id number] C: 04/03/03 17:34 DOCUMENT: [id number] STRIAL TECHNICIAN documented in this encounter Plan of Treatment Not on filedocumented as of this encounter Visit Diagnoses Not on filedocumented in this encounter Care Teams Student Support Counselor Relationship Specialty Start Date End Date Michel Daniel MD PCP - General 07/25/10 12/22/[address] [place] [address] documented as of this encounter
--- OUTSIDE RECORDS SUMMARY | 2022-02-12 12:19 | XMS_ITS | Encounter Summary ---
:1970 Author Organization [facility] Address [address] [address] Care Team Providers Name Role Phone Antonio Jerez MD Primary Care Provider Encounter Details Date Type Department Care Team Description 05/26/2001 PN Conversion [place] [address] [place], [place] [address] Social History Tobacco Use Types Packs/Day Years Used Date Smoking Tobacco: Never Assessed Sex Assigned at Date Recorded Not on file documented as of this encounter Plan of Treatment Not on filedocumented as of this encounter Visit Diagnoses Not on filedocumented in this encounter Care Teams Occupational Analyst Relationship Specialty Start Date End Date Antonio Jerez MD PCP - General 07/25/10 12/22/10 [address] [place] [address] documented as of this encounter
--- OUTSIDE RECORDS SUMMARY | 2022-02-12 12:19 | XMS_ITS | Encounter Summary ---
:1970 Author [facility] Address [address] [address] Care Team Providers Name Role Phone Antonio Jerez MD Primary Care Provider Encounter Details Date Type Department Care Team Description 03/20/2003 PN Conversion Only [place] CONVERSION [address] [place] [address] Social History Tobacco Use Types Packs/Day Years Used Date Smoking Tobacco: Never Assessed Sex Assigned at Date Recorded Not on file documented as of this encounter Plan of Treatment Not on filedocumented as of this encounter Visit Diagnoses Not on filedocumented in this encounter Care Teams Fish Checker Relationship Specialty Start Date End Date Antonio Jerez MD PCP - General 07/25/10 12/22/10 [address] [place] [address] documented as of this encounter
--- OUTSIDE RECORDS SUMMARY | 2022-02-12 12:19 | XMS_ITS | Encounter Summary ---
:1970 Author Organization [facility] Address [address] [address] Care Team Providers Name Role Phone Antonio Jerez MD Primary Care Provider Encounter Details Date Type Department Care Team Description 08/17/2004 PN Conversion Only [facility] CONVERSION [address] [place] [address] Social History Tobacco Use Types Packs/Day Years Used Date Smoking Tobacco: Never Assessed Sex Assigned at Date Recorded Not on file documented as of this encounter Progress Notes Екатерина Goetz RN - 11/15/2005 12:01 AM CDT Phone Note signed by Екатерина Goetz RN at 11/25/05 1414 Author: Екатерина Goetz RN Service: (none) Author Type: Registered Nurse Filed: 08/17/04 0000 Note Time: 11/15/05 0001 Status: Signed Leasing Representative: Екатерина Goetz RN (Registered Nurse) NAME: NATALI KRISHNAMURTHY MR: [id number] ACCT: DICTATING CLINICIAN: ЕКАТЕРИНА GOETZ RN JOB: [id number] MENTAL HEALTH ONLINE PHONE CALL DATE: 11/15/05. SUBJECTIVE AND OBJECTIVE: Patient phoned in stating that he had increased his Abilify to 15 mg a day for the last 2 weeks and he has noted that he is having facial tics, his heart is racing, he is nauseated frequently and he has his head twitches back. He is also stating that he is having a lot of difficulty sleeping. PLAN: I discussed with Dr. Aquino in Dr. Hanson's absence. Patient was informed that he should discontinue the Abilify. He does have a followup appointment scheduled for this Tuesday at which point he will discuss what the plan is from here with Dr. Hanson. He did not want to restart any other medication. :[id number] C: 11/16/05 11:54 DOCUMENT: [id number] Ashley Gaines RN - 10/07/2005 12:01 AM CDT Phone Note signed by Ashley Denise RN at 03/01/06 1604 Author: Ashley Denise RN Service: (none) Author Type: Registered Nurse Filed: 08/17/04 0000 Note Time: 10/07/05 0001 Status: Signed Leasing Representative: sAhley Denise RN (Registered Nurse) NAME: SHARLENE KRISHNAMURTHY MR: ACCT: DICTATING CLINICIAN: [facility] JOB: [id number] MENTAL HEALTH ONLINE PHONE CALL DATE: 10/07/05. This is a patient of Dr. Hanson. Patient called in stating he is taking the Zyprexa 5 mg b.i.d. double what he and Dr. Hanson had talked about and was feeling better with this. Dr. Hanson informed. [facility]:[id number] C: 10/07/05 20:08 DOCUMENT: [id number] [employer]ISE EQUIPMENT SPECIALIST Екатерина Goetz RN - 10/05/2005 12:01 AM CDT Phone Note signed by Екатерина Goetz RN at 10/08/05 1416 Author: Екатерина Goetz RN Service: (none) Author Type: Registered Nurse Filed: 08/17/04 0000 Note Time: 10/05/05 0001 Status: Signed Leasing Representative: Екатерина Goetz RN (Registered Nurse) NAME: NATALI KRISHNAMURTHY MR: [id number] ACCT: DICTATING CLINICIAN: ЕКАТЕРИНА GOETZ RN JOB: [id number] [facility] ONLINE PHONE CALL DATE: . SUBJECTIVE AND OBJECTIVE: Patient phoned in stating that he feels like he is getting a little bit high again, that is manic. He states that for the last three nights he has not gotten very good sleep however he did state that he is drinking a lot of caffeine. He states that he is eating better again and really would like to get off of the Zyprexa. He has been taking 2.5 mg a day and actually this morning took an extra dose to try to curb some of the brisa. At this point he is taking 3000 mg of Depakote a day and he would like to talk with Dr. Hanson about possibly increasing that to 3500 a day while he is feeling manic rather than using the Zyprexa at all. He was in agreement with waiting until to discuss this with Dr. Hanson rather than a different physician in his absence. He does have a follow up appointment scheduled for 10/29. MC:[id number] C: 10/05/05 13:39 DOCUMENT: [id number] Екатерина Goetz RN - 09/30/2005 12:01 AM CDT Phone Note signed by Екатерина Goetz RN at 10/08/05 1413 Author: Екатерина Goetz RN Service: (none) Author Type: Registered Nurse Filed: 08/17/04 0000 Note Time: 09/30/05 0001 Status: Signed Leasing Representative: Екатерина Goetz RN (Registered Nurse) NAME: NATALI LINDA MR: [id number] ACCT: DICTATING CLINICIAN: ЕКАТЕРИНА GOETZ RN JOB: [id number] [facility] ONLINE PHONE CALL DATE: 09/30/05. . SUBJECTIVE/OBJECTIVE: The patient phoned in stating that he had decreased to 5 mg of Zyprexa at night. He states that he has been quite calm lately. He has been eliminating caffeine from his diet. He states he is attending the day treatment program at [facility] which he really likes. He reports that the head jerking is still present. It is a little less but it is still there, and he would like to try decreasing the Zyprexa to 2.5 mg at bedtime. PLAN: I discussed with Dr. Hanson. I left a message for the patient per his request stating that he could decrease his Zyprexa to 2.5 mg at bedtime. He has a followup appointment scheduled for 10/29. MC:[id number] C: 09/30/05 21:47 DOCUMENT: [id number] Farida Malin APRN, CNS - 09/24/2005 12:01 AM CDT Phone Note signed by SHERIF Bell at 09/27/05 0829 Author: SHERIF Bell Service: (none) Author Type: Clinical Nurse Specialist Filed: 08/17/04 0000 Note Time: 09/24/05 0001 Status: Signed Leasing Representative: SHERIF Bell (Clinical Nurse Specialist) NAME: NATALI KRISHNAMURTHY MR: [id number] ACCT: DICTATING CLINICIAN: SHERIF COELHO JOB: [id number] MENTAL HEALTH ONLINE PHONE CALL DATE: : 1970. . 09/24/2005. Patient of Dr. Kevin Hanson. Received a phone call yesterday from patient. Reports he is currently on Zyprexa taking 2.5 mg every morning, 5 mg at bedtime. He is complaining of continued head jerking and weight gain of 20 pounds since increasing the Zyprexa. He reports his manic symptoms are under control and is requesting to reduce the Zyprexa. PLAN: I discussed the situation with Dr. Hanson, he was agreeable to patient discontinuing the morning dose of Zyprexa of 2.5 mg. He is to continue the evening dose at 5 mg. I did leave Natali a message at [phone] as directed by the patient regarding this medication change. He is to call with any questions or concerns. He is to follow up with Dr. Hanson as directed. KJL:[id number] C: 09/24/05 11:46 DOCUMENT: [id number] Екатерина Goetz RN - 09/17/2005 12:01 AM CDT Phone Note signed by Екатерина Goetz RN at 10/08/05 1403 Author: Екатерина Goetz RN Service: (none) Author Type: Registered Nurse Filed: 08/17/04 0000 Note Time: 09/17/05 0001 Status: Signed Leasing Representative: Екатерина Goetz RN (Registered Nurse) NAME: NATALI PEARL MR: [id number] ACCT: DICTATING CLINICIAN: ЕКАТЕРИНА GOETZ RN JOB: [id number] MENTAL HEALTH ONLINE PHONE CALL DATE: 09/17/05. . SUBJECTIVE/OBJECTIVE: The patient phoned from [facility] where he was seeing Dr. Mckinney and he was seeing him for swollen feet. He states that he has gained 20 pounds since 07/[address] Mckinney was suggesting to him that they thought it was due to the Zyprexa. He has currently been taking 2.5 mg in the morning and 7.5 mg at bedtime, and he feels like he has been very stable without any hypomania for the last week. PLAN: I consulted with Dr. Aquino in Dr. Hanson's absence, and the patient will decrease his Zyprexa to 2.5 mg in the morning and 5 mg at bedtime over the weekend, and he will call next with a progress report to get further directions from Dr. Hanson. MC:[id number] C: 09/20/05 11:29 DOCUMENT: [id number] Екатерина Goetz RN - 09/02/2005 12:01 AM CDT Phone Note signed by Екатерина Goetz RN at 09/06/05 1350 Author: Екатерина Goetz RN Service: (none) Author Type: Registered Nurse Filed: 08/17/04 0000 Note Time: 09/02/05 0001 Status: Signed Leasing Representative: Екатерина Goetz RN (Registered Nurse) NAME: SHARLENE KRISHNAMURTHY MR: [id number] ACCT: DICTATING CLINICIAN: ЕКАТЕРИНА GOETZ RN JOB: [id number] MENTAL HEALTH ONLINE PHONE CALL DATE: 09/02/05. . SUBJECTIVE AND OBJECTIVE: Patient phoned in to give a progress report. He stated that since he has been taking the 5 mg of Zyprexa in the morning and 7.5 mg at bedtime, his brisa is gone. So that is working and he is pleased about that. However, he still feels this underlying anxiety which he plans to discuss at his appointment with Dr. Hanson next week. This information was given to Dr. Hanson. MC:[id number] C: 09/03/05 15:33 DOCUMENT: [id number] Farida Malin APRN, CNS - 08/31/2005 12:01 AM CDT Phone Note signed by SHERIF Bell at 09/08/05 0811 Author: SHERIF Bell Service: (none) Author Type: Clinical Nurse Specialist Filed: 08/17/04 0000 Note Time: 08/31/05 0001 Status: Signed Leasing Representative: SHERIF Bell (Clinical Nurse Specialist) NAME: AMOL KRISHNAMURTHY MR: [id number] ACCT: DICTATING CLINICIAN: SHERIF COELHO JOB: [id number] [facility] ONLINE PHONE CALL DATE: 08/31/2005. I will refer you to earlier notes. Patient had spoken with Kayy last week and they had decreased patient's Zyprexa and after talking with Dr. Hanson, Dr. Hanson had indicated that patient does have these spasms when he starts to be more manic. Dr. Hanson wanted him to stay at 5 mg b.i.d. He is calling back today and has met with his director of casework department. Both are feeling that he is having some manic symptoms, stating that he feels more revved up. He is having more of those spasms. Patient does have a bit more rapid, pressured speech. He is all over the place jumping from topic to topic. He is a bit difficult to follow him. He does agree that he is manic. Spoke with Dr. Aquino. Patient will increase the Zyprexa at bedtime to 7.5 mg until . He will call in on to see if that is helpful. He reports it was helpful last time and then we will go from there with Dr. Hanson to see if there is going to be further medication changes. Patient is agreeable with that plan. KJL:[id number] C: 09/01/05 17:27 DOCUMENT: [id number] Farida Malin APRN, CNS - 08/25/2005 12:01 AM CDT Phone Note signed by SHERIF Bell at 08/27/05 1103 Author: SHERIF Bell Service: (none) Author Type: Clinical Nurse Specialist Filed: 08/17/04 0000 Note Time: 08/25/05 0001 Status: Signed Leasing Representative: SHERIF Bell (Clinical Nurse Specialist) NAME: SHARLENE KRISHNAMURTHY MR: [id number] ACCT: DICTATING CLINICIAN: SHERIF COELHO JOB: [id number] MENTAL HEALTH ONLINE PHONE CALL DATE: 08/25/05. : 1970. . Patient had actually called on Tuesday, spoke with Екатерина Britton. Reports his fiance broke up with him. He was complaining of neck spasms. Екатерина Britton had spoken with Dr. Kemp and patient's Zyprexa was changed to 5 mg q.a.m., 7.5 mg at bedtime. He was to call with an update, which he did do. We spoke today. He reports that things are getting somewhat better. He does continue to have some of the spasms. He does agree, per Dr. Hanson's assessment, that patient has had these neck spasms in the past, typically occurring when he is having some manic symptoms. The patient is agreeable with that. In discussing the situation further with Dr. Hanson, he did indicate he did want patient to stay on Zyprexa 5 mg b.i.d., as was discussed at the last visit, 08/20/05. Patient was advised of this and agreeable with the plan. He will contact us back if anything changes, and he is to follow up as directed. KJL:[id number] C: 08/27/05 07:09 DOCUMENT: [id number] Екатерина Goetz RN - 08/24/2005 12:01 AM CDT Phone Note signed by Екатерина Goetz RN at 09/03/05 0803 Author: Екатерина Goetz RN Service: (none) Author Type: Registered Nurse Filed: 08/17/04 0000 Note Time: 08/24/05 0001 Status: Signed Leasing Representative: Екатерина Goetz RN (Registered Nurse) NAME: SHARLENE KRISHNAMURTHY MR: [id number] ACCT: DICTATING CLINICIAN: ЕКАТЕРИНА GOETZ RN JOB: [id number] [facility] ONLINE PHONE CALL DATE: 08/24/05. SUBJECTIVE/OBJECTIVE: The patient phoned in stating that he has noticed since going to Zyprexa 5 mg in the morning and Zyprexa 10 mg at bedtime that he is sleeping well at night, but that he is dizzy and somewhat shaky during the day and that his neck spasms have actually gotten worse with being on the increased dose of Zyprexa. He does note that in the past he has been on Cogentin, but that actually did not help with side effects and he would really rather not go on that. He did state that stressors have been that his fiance broke up with him this morning and yet he feels like he has a good support system in place, as he is in day treatment on Wednesdays and and he is seeing Jon Lugo on a regular basis. PLAN: I discussed with Dr. Aquino in Dr. Hanson's absence. He will decrease his dose of Zyprexa; he will stay at 5 mg in the morning, but decrease to 7.5 mg at bedtime tonight and then he will call and talk with Deepthi tomorrow about how that worked for him and get a recommendation from Dr. Hanson tomorrow. MC:[id number] C: 08/25/05 12:23 DOCUMENT: [id number] Екатерина Goetz RN - 08/19/2005 12:01 AM CDT Phone Note signed by Екатерина Goetz RN at 08/24/05 1346 Author: Екатерина Goetz RN Service: (none) Author Type: Registered Nurse Filed: 08/17/04 0000 Note Time: 08/19/05 0001 Status: Signed Leasing Representative: Екатерина Goetz RN (Registered Nurse) NAME: SHARLENE KRISHNAMURTHY MR: [id number] ACCT: DICTATING CLINICIAN: ЕКАТЕРИНА GOETZ RN JOB: [id number] MENTAL HEALTH ONLINE PHONE CALL DATE: 08/19/05. SUBJECTIVE/OBJECTIVE: The patient phoned in earlier this week and talked with Dina. Stated that he has had an increase in anxiety and it feels like he has had some irrational feelings that people are mad at him at work. He states that he does not feel any brisa. He is wondering about possibly increasing the Zyprexa dose. PLAN: I discussed with Dr. Hanson upon his return. The patient was informed that he could increase his Zyprexa to 5 mg twice a day. He was happy about that change and will be making that as of today. MC:[id number] C: 08/20/05 15:20 DOCUMENT: [id number] documented in this encounter Plan of Treatment Not on filedocumented as of this encounter Visit Diagnoses Not on filedocumented in this encounter Care Teams Assistant Activities Director Relationship Specialty Start Date End Date Antonio Jerez MD PCP - General 07/25/10 12/22/10 [address] [place] [address] documented as of this encounter
--- OUTSIDE RECORDS SUMMARY | 2022-02-12 12:19 | XMS_ITS | Encounter Summary ---
:1970 Author Organization [employer] Address [address] [place] [address] Care Team Providers Name Role Phone Michel Daniel MD Primary Care Provider Encounter Details Date Type Department Care Team Description 05/19/2005 Office Visit [facility] Michel Daniel MD [address] [facility] . [address] [place] [address] [place] [address] [phone] (Wo rk) Social History Tobacco Use Types Packs/Day Years Used Date Smoking Tobacco: Never Assessed Sex Assigned at Date Recorded Not on file documented as of this encounter Last Filed Vital Signs Vital Sign Reading Time Taken Comments Blood Pressure 132/84 05/19/2005 1:00 PM OIL PIT ATTENDANT Pulse - - Temperature 37.1 ??C (98.8 ??F) 05/19/2005 1:00 PM OIL PIT ATTENDANT C: 37 .1 C Respiratory Rate - - Oxygen Saturation - - Inhaled Oxygen Concentration - - Weight 97.1 kg (213 lb 15.7 oz) 05/19/2005 1:00 PM OIL PIT ATTENDANT C: 97.1kg Height - - Body Mass Index - - documented in this encounter Progress Notes Michel Daniel MD - 05/19/2005 12:01 AM CST Progress Notes signed by Michel Daniel MD at 05/21/05 0715 Author: Michel Daniel MD Service: (none) Author Type: Physician Filed: 08/14/10 0947 Note Time: 05/19/05 0001 Status: Signed Barrel Planer: Michel Daniel MD (Physician) NAME: SHARLENE VARNER MR: [id number] ACCT: [id number] VISIT: [id number] DICTATING CLINICIAN: MICHEL DANIEL MD JOB: [id number] CLINIC PROGRESS NOTE DATE OF VISIT: 05/19/2005 SUBJECTIVE: : 1970. A 35-year-old male who has been ill five to six days with nasal congestion and cough. He has had no fever. He was at work yesterday, felt a little bit short of breath, a little bit lightheaded. There has been no nausea and no vomiting. He continues on Depakote at 1500 mg b.i.d. He has been using some Mucinex. He is under the care of Dr. Hanson in mental health for bipolar disorder. Evidently things have been going well. There has been no nausea and no vomiting. Julius does not smoke. OBJECTIVE: VS: BP: 132/84. T: 98.8. Wt: 214. Peak flow 550, 560, 565. Normal 610 Healthy-appearing, but overweight male. Ears and canals clear. Drums normal. Nose: Slight increase in redness of the mucous membranes with serous discharge only. Throat: Tonsils present. No exudate. No redness. NECK: No adenopathy. No facial tenderness on percussion. CHEST: Respirations unlabored. No rales, rhonchi, or wheeze. CV: Pulse regular, 80, no murmurs. ASSESSMENT: Upper respiratory infection, viral. PLAN: 1. Continue Mucinex, fluids, recheck p.r.n. 2. Influenza vaccine today. AAS:[id number] C: 05/20/05 09:24 DOCUMENT: [id number] PIT ATTENDANT documented in this encounter Plan of Treatment Not on filedocumented as of this encounter Visit Diagnoses Not on filedocumented in this encounter Care Teams Medical Technologist Blood Bank Relationship Specialty Start Date End Date Michel Daniel MD PCP - General 07/25/10 12/22/[address] [place] [address] documented as of this encounter
--- OUTSIDE RECORDS SUMMARY | 2022-02-12 12:19 | XMS_ITS | Encounter Summary ---
:1970 [facility] Address [address], [place] [address] Care Team Providers Name Role Phone Antonio Jerez MD Primary Care Provider Encounter Details Date Type Department Care Team Description 07/17/2003 It Help Desk Associate Only CONVERSION CONVERSION Dave Aquino MBBS [address] [facility] (Wo rk) Social History Tobacco Use Types Packs/Day Years Used Date Smoking Tobacco: Never Assessed Sex Assigned at Date Recorded Not on file documented as of this encounter Progress Notes Lyndsay Aquino MBBS - 07/17/2003 12:01 AM CST Progress Notes signed by REINA Olivia at 07/17/03 0948 Author: REINA Olivia Service: (none) Author Type: Resource Filed: 08/13/10 193 Note Time: 07/17/03 0001 Status: Signed Sql Server Bi Developer: REINA Olivia (Resource) VPA 119 from 07/03/03. No action needed at current time. ERER BARREL RIBS documented in this encounter Plan of Treatment Not on filedocumented as of this encounter Visit Diagnoses Not on filedocumented in this encounter Care Teams Dirt Supervisor Relationship Specialty Start Date End Date Antonio Jerez MD PCP - General 07/25/10 12/22/10 [address] [place] [address] documented as of this encounter
--- OUTSIDE RECORDS SUMMARY | 2022-02-12 12:19 | XMS_ITS | Encounter Summary ---
:1970 [facility] Address [address] [address] Care Team Providers Name Role Phone Antonio Jerez MD Primary Care Provider Encounter Details Date Type Department Care Team Description 07/31/2003 PN Conversion Only CHARLES CONVERSKevin Mcneill, [address] [place] [address] [address] [facility] [address] SOTO MD [address] [address] Social History Tobacco Use Types Packs/Day Years Used Date Smoking Tobacco: Never Assessed Sex Assigned at Date Recorded Not on file documented as of this encounter Plan of Treatment Not on filedocumented as of this encounter Procedures Procedure Name Priority Date/Time Associated Diagnosis Comme nts VALPROIC ACID Routine 07/31/2003 1:56 PM Results for this (DEPAKENE) CDT procedure are i n the results section. documented in this encounter Results (ABNORMAL) Valproic Acid (Depakene) (07/31/2003 1:56 PM CDT) Analysis Performed At Patho logist Time Signature Time Last Dose 0800 No normal HP CONVERSION Valproic Acid range Date Last Dose [id number] No normal HP CONVERSION Valproic Acid range Valproic 106 (H) 50 - 100 HP CONVERSION Acid/Depakene ug/mL (Valp) Specimen (Source) Anatomical Collection Method Collection Time Re ceived Time Location / / Volume Laterality 07/31/2003 1:56 PM CDT Kevin Hanson MD LAB_1 Performing Organization Address City/State/ZIP Code Phon e Number HP CONVERSION documented in this encounter Visit Diagnoses Not on filedocumented in this encounter Care Teams Supervisor Instrument Mechanics Relationship Specialty Start Date End Date Antonio Jerez MD PCP - General 07/25/10 12/22/10 [address] [facility] [place] [address] documented as of this encounter
--- OUTSIDE RECORDS SUMMARY | 2022-02-12 12:19 | XMS_ITS | Encounter Summary ---
:1970 Author Organization [employer] Address [address], [place] [address] Care Team Providers Name Role Phone Antonio Jerez MD Primary Care Provider Encounter Details Date Type Department Care Team Description 08/25/2001 PN Conversion Only [place] [address] [place], [place] [address] Social History Tobacco Use Types Packs/Day Years Used Date Smoking Tobacco: Never Assessed Sex Assigned at Date Recorded Not on file documented as of this encounter Plan of Treatment Not on filedocumented as of this encounter Visit Diagnoses Not on filedocumented in this encounter Care Teams Auto Dealership [place] Relationship Specialty Start Date End Date Antonio Jerez MD PCP - General 07/25/10 12/22/10 [address] [place] [address] documented as of this encounter
--- OUTSIDE RECORDS SUMMARY | 2022-02-12 12:19 | XMS_ITS | Encounter Summary ---
:1970 Author Organization [facility] Address [address] [place] [address] Care Team Providers Name Role Phone Antonio Jerez MD Primary Care Provider Encounter Details Date Type Department Care Team Description 08/17/2004 Office Visit [facility] Olga Childs PA-C [address] [facility] . [address] [place] [address] [place] [address] [phone] (Wo rk) Social History Tobacco Use Types Packs/Day Years Used Date Smoking Tobacco: Never Assessed Sex Assigned at Date Recorded Not on file documented as of this encounter Progress Notes Olga Peterson V - 08/17/2004 12:01 AM CDT Progress Notes signed by Olga Vicente PA-C at 09/13/04 0841 Author: Olga Vicente PA-C Service: (none) Author Type: Physician Mine Development Engineer Filed: 08/14/10 0431 Note Time: 08/17/04 0001 Status: Signed Bed And Breakfast Cook: Olga Vicente PA-C (Physician Mine Development Engineer) NAME: SHARLENE VARNER MR: [id number] ACCT: [id number] VISIT: [id number] DICTATING CLINICIAN: KEREN CAMARGO JOB: [id number] CLINIC PROGRESS NOTE DATE OF VISIT: 08/17/2004 SUBJECTIVE: : 1970. Zdndnf-ygxo-mpxj-old male comes in concerned about sinus congestion and cough. Symptoms now for approximately three days. He started with a sore throat and now has had sinus pressure, headaches. The cough has been productive. It hurts in his chest when he coughs. He feels there is something ripping apart. He has noticed a bit of blood in the sputum. He feels somewhat tight, questions some wheezing but feels short of breath. He has been tired and run down. He does feel hot and cold. No documented temperatures. He quit smoking six months ago. PAST MEDICAL HISTORY: Negative for any chronic pulmonary illnesses although states when he did smoke he did have troubles with bronchospasm, needing an inhaler. MEDS: Reviewed list in LastWord. ADR/ALLERGIES: REVIEWED LIST IN LASTWORD. OBJECTIVE: VS: BP: 128/88. T: 98.6. Wt: 216. HEENT: Eyes: Normal conjunctivae. TMs normal. Nose: Clear. Throat: Mild erythema. Pain with pressure over the frontal sinuses. LUNGS: Upper airway phlegm heard. No wheezing. ABDOMEN: Obese. ASSESSMENT: Cough, bronchitis, sinusitis. PLAN: Mucinex grre-xeo-imejgtf twice daily for the next 10 days. Augmentin 875 one p.o. t.i.d. for the next 10 days. Albuterol inhaler 1-2 puffs every 4-6 hours. Push fluids. Should follow up within the next week, particularly if he were to notice persistence of any bloody sputum. He did mention that his sputum was fairly dry and thick. Wonders about his cough and some mild bleeding to the bronchial area, however, if symptoms do not improve would recommend chest x-ray. MVT:[id number] C: 08/17/04 13:16 DOCUMENT: [id number] documented in this encounter Plan of Treatment Not on filedocumented as of this encounter Visit Diagnoses Not on filedocumented in this encounter Care Teams Director Oracle Retail Relationship Specialty Start Date End Date Antonio Jerez MD PCP - General 07/25/10 12/22/10 [address] [place] [id number] documented as of this encounter
--- OUTSIDE RECORDS SUMMARY | 2022-02-12 12:19 | XMS_ITS | Encounter Summary ---
:1970 Author Organization [facility] Address [address] [place] [address] Care Team Providers Name Role Phone Antonio Jerez MD Primary Care Provider Encounter Details Date Type Department Care Team Description 04/03/2003 PN Conversion Only KASHIA CONVERSION Antonio Jerez, [address] [facility] [place] [address] 14[address] [facility] [place]AT[place] [address] (Wo rk) Social History Tobacco Use Types Packs/Day Years Used Date Smoking Tobacco: Never Assessed Sex Assigned at Date Recorded Not on file documented as of this encounter Plan of Treatment Not on filedocumented as of this encounter Procedures Procedure Name Priority Date/Time Associated Comments Diagnosis DIFFERENTIAL RULE Routine 04/03/2003 1:55 PM Resu lts for this MANUAL TOWER LOADER OPERATOR procedure are i n the results section. COMPLETE BLOOD Routine 04/03/2003 1:55 PM Results for this COUNT-W/DIFF TOWER LOADER OPERATOR procedure are i n the results section. VALPROIC ACID Routine 04/03/2003 1:55 PM Results for this (DEPAKENE) TOWER LOADER OPERATOR procedure are i n the results section. ALT (SGPT) Routine 04/03/2003 1:55 PM Results f or this TOWER LOADER OPERATOR procedure are i n the results section. AST Routine 04/03/2003 1:55 PM Results f or this TOWER LOADER OPERATOR procedure are i n the results section. documented in this encounter Results Complete Blood Count-W/Diff (04/03/2003 1:55 PM TOWER LOADER OPERATOR) [facility] gist Method Time Signature White Blood Cell 5.4 3.8 - 11.0 HP CONVERSIO N Count K/cmm Red Blood Cell 4.63 4.20 - HP CONVERSION Count 5.90 m/cmm Hemoglobin 15.0 13.4 - HP CONVERSION 17.5 gm/dL Hematocrit 43.3 39.0 - HP CONVERSION 51.0 % Mean Corpuscular 93.0 80.0 - HP CONVERSION Volume 100.0 fl Mean Corpuscular 32.4 27.0 - HP CONVERSION Hemoglobin 34.0 pg Mean Corpuscular 34.7 32.0 - HP CONVERSION Hemoglobin Conc 36.5 gm/dL [place] RDW 11.6 11.0 - HP CONVERSION 15.0 % Platelet Count 181 140 - 450 HP CONVERSION k/cmm Differential Manl Dif No normal HP CONVERSION Verify range Specimen (Source) Anatomical Collection Method Collection Time Re ceived Time Location / / Volume Laterality 04/03/2003 1:55 PM TOWER LOADER OPERATOR Antonio Jerez MD LAB_1 Performing Organization Address City/[facility]/ZIP Code Phon e Number HP CONVERSION (ABNORMAL) ALT (SGPT) (04/03/2003 1:55 PM TOWER LOADER OPERATOR) [facility] [email or web address] Method Time Signature Alanine 82 (H) 0 - 65 HP CONVERSION Aminotransferase U/L Specimen (Source) Anatomical Collection Method Collection Time Re ceived Time Location / / Volume Laterality 04/03/2003 1:55 PM TOWER LOADER OPERATOR Antonio Jerez MD LAB_1 Performing Organization Address City/[facility]/ZIP Code Phon e Number HP CONVERSION (ABNORMAL) AST (04/03/2003 1:55 PM TOWER LOADER OPERATOR) [facility] [employer] Method Time Signature Aspartate 70 (H) 0 - 45 HP CONVERSION Aminotransferase U/L Specimen (Source) Anatomical Collection Method Collection Time Re ceived Time Location / / Volume Laterality 04/03/2003 1:55 PM TOWER LOADER OPERATOR Antonio Jerez MD LAB_1 Performing Organization Address City/State/ZIP Code Phon e Number HP CONVERSION (ABNORMAL) Valproic Acid (Depakene) (04/03/2003 1:55 PM TOWER LOADER OPERATOR) Analysis Performed At [facility] Time Signature Time Last Dose 2,200 No normal HP CONVERSION Valproic Acid range Date Last Dose 83PDN18 No normal HP CONVERSION Valproic Acid range Valproic 157 (H) 50 - 100 HP CONVERSION Acid/Depakene ug/mL (Valp) Specimen (Source) Anatomical Collection Method Collection Time Re ceived Time Location / / Volume Laterality 04/03/2003 1:55 PM TOWER LOADER OPERATOR Antonio Jerez MD LAB_1 Performing Organization Address City/[facility] Code Phon e Number HP CONVERSION (ABNORMAL) Differential Rule Manual (04/03/2003 1:55 PM TOWER LOADER OPERATOR) [facility] gist Method Time Signature Neutrophils 36 (L) 50 - 70 % HP CONVERSION Lymphocytes 50 (H) 20 - 40 % HP CONVERSION Monocyte 7 5 - 14 % HP CONVERSION Eosinophils 5 0 - 6 % HP CONVERSION Basophils 2 0 - 2 % HP CONVERSION Platelet Normal No normal HP CONVERSION Estimate range Lymphocyte Moderate No normal HP CONVERSION Reactive range RBC Morphology Normal No normal HP CONVERSION range Comment: RBC's appear normochromic and n ormocytic. Specimen (Source) Anatomical Collection Method Collection Time Re ceived Time Location / / Volume Laterality 04/03/2003 1:55 PM TOWER LOADER OPERATOR Antonio Jerez MD LAB_1 Performing Organization Address City/[facility] Phon e Number HP CONVERSION documented in this encounter Visit Diagnoses Not on filedocumented in this encounter Care Teams Felt Finisher Relationship Specialty Start Date End Date Antonio Jerez MD PCP - General 07/25/10 12/22/10 [address] [place] [place] [id number] documented as of this encounter
--- OUTSIDE RECORDS SUMMARY | 2022-02-12 12:19 | XMS_ITS | Encounter Summary ---
:1970 Author Organization [facility] Address [address] [place] [address] Care Team Providers Name Role Phone Michel Daniel MD Primary Care Provider Encounter Details Date Type Department Care Team Description 08/09/2005 Office Visit [facility] Michel Daniel MD [address] [facility] . [address] [place] [address] [place] [address] [phone] (Wo rk) Social History Tobacco Use Types Packs/Day Years Used Date Smoking Tobacco: Never Assessed Sex Assigned at Date Recorded Not on file documented as of this encounter Progress Notes Michel Daniel MD - 08/09/2005 12:01 AM CDT Progress Notes signed by Michel Daniel MD at 08/11/05 0749 Author: Michel Daniel MD Service: (none) Author Type: Physician Filed: 08/14/10 1130 Note Time: 08/09/05 0001 Status: Signed Insurance Claims Examiner: Michel Daniel MD (Physician) NAME: SHARLENE VARNER MR: [id number] ACCT: [id number] VISIT: [id number] DICTATING CLINICIAN: MICHEL DANIEL MD JOB: [id number] CLINIC PROGRESS NOTE DATE OF VISIT: 08/09/2005 SUBJECTIVE: : 12/25/1969. A 35-year-old male who is in today because he has had some intermittent rectal bleeding and rectal itching. This has been going on for some months. There is evidently no blood in the stool, but mainly blood when he wipes. Julius is on multiple medications. He is under the care of Dr. Hanson in mental health for bipolar disorder, and he has evidently been going through a hypomanic phase at this time. Stools generally are soft, formed. He has not had a significant problem with constipation. OBJECTIVE: VS: Wt: 223 lb. He is placed on the rectoscopic table and examination of the perirectal area shows irritation, punctate red areas, a little bit of breakdown of the mucous membrane. Digital rectal exam is normal. Anoscopic exam shows no evidence of fissure and/or hemorrhoids. ASSESSMENT: Pruritus ani. PLAN: Suggest triamcinolone cream 0.025% b.i.d. x10 days, then switch to Balneol to be used on a t.i.d. p.r.n. basis. Moistened toilet paper and/or Tucks. Reassurance. Return in 4-6 weeks if not improved. [id number]:[id number] C: 08/10/05 14:20 DOCUMENT: [id number] documented in this encounter Plan of Treatment Not on filedocumented as of this encounter Visit Diagnoses Not on filedocumented in this encounter Care Teams Wash Box Operator Relationship Specialty Start Date End Date Michel Daniel MD PCP - General 07/25/10 12/22/[address] [place] [address] documented as of this encounter
--- OUTSIDE RECORDS SUMMARY | 2022-02-12 12:19 | XMS_ITS | Encounter Summary ---
:1970 Author Organization [facility] Address [address], [place] [address] Care Team Providers Name Role Phone Antonio Jerez MD Primary Care Provider Encounter Details Date Type Department Care Team Description 11/30/2000 PN Conversion Only ALEVISM CONVERSION Kvng Jerez MD [address] [place], [place] [address] (Wo rk) Social History Tobacco Use Types Packs/Day Years Used Date Smoking Tobacco: Never Assessed Sex Assigned at Date Recorded Not on file documented as of this encounter Plan of Treatment Not on filedocumented as of this encounter Visit Diagnoses Not on filedocumented in this encounter Care Teams Processes Chemical Design Engineer Relationship Specialty Start Date End Date Antonio Jerez MD PCP - General 07/25/10 12/22/10 [address] [place] [address] documented as of this encounter
--- OUTSIDE RECORDS SUMMARY | 2022-02-12 12:19 | XMS_ITS | Encounter Summary ---
:1970 Author Organization [facility] Address [address] [address] Care Team Providers Name Role Phone Antonio Jerez MD Primary Care Provider Encounter Details Date Type Department Care Team Description 10/18/2002 PN Conversion [place] [address] [place], [place] [address] Social History Tobacco Use Types Packs/Day Years Used Date Smoking Tobacco: Never Assessed Sex Assigned at Date Recorded Not on file documented as of this encounter Plan of Treatment Not on filedocumented as of this encounter Procedures Procedure Name Priority Date/Time Associated Diagnosis Comme nts VALPROIC ACID Routine 10/18/2002 1:56 PM Results for this (DEPAKENE) CDT procedure are i n the results section. documented in this encounter Results (ABNORMAL) Valproic Acid (Depakene) (10/18/2002 1:56 PM CDT) [facility] Time Signature Time Last Dose 2,330 No normal HP CONVERSION Valproic Acid range Date Last Dose [id number] No normal HP CONVERSION Valproic Acid range Valproic 123 (H) 50 - 100 HP CONVERSION Acid/Depakene ug/mL (Valp) Comment: Therapeutic Range: 50 - 150 ug/mL Toxic: ??Above 200 ug/mL Specimen (Source) Anatomical Collection Method Collection Time Re ceived Time Location / / Volume Laterality 10/18/2002 1:56 PM CDT Kevin Hanson MD LAB_1 Performing Organization Address City/State/ZIP Code Phon e Number HP CONVERSION documented in this encounter Visit Diagnoses Not on filedocumented in this encounter Care Teams Cloth Inspector Relationship Specialty Start Date End Date Antonio Jerez MD PCP - General 07/25/10 12/22/10 [address] [place] [address] documented as of this encounter
--- OUTSIDE RECORDS SUMMARY | 2022-02-12 12:19 | XMS_ITS | Encounter Summary ---
:1970 Author Organization [facility] Address [address] [place] [address] Care Team Providers Name Role Phone Michel Jerez MD Primary Care Provider Encounter Details Date Type Department Care Team Description 09/15/2005 Office Visit [facility] Michel Jerez MD [address] [facility] . [address] [place] [address] [place] [address] [phone] (Wo rk) Social History Tobacco Use Types Packs/Day Years Used Date Smoking Tobacco: Never Assessed Sex Assigned at Date Recorded Not on file documented as of this encounter Last Filed Vital Signs Vital Sign Reading Time Taken Comments Blood Pressure 126/74 09/15/2005 11:16 AM CDT Pulse 96 09/15/2005 11:16 AM CDT Temperature - - Respiratory Rate - - Oxygen Saturation - - Inhaled Oxygen Concentration - - Weight 107.6 kg (237 lb 1.7 oz) 09/15/2005 11:16 AM C: 107.6kg CDT Height - - Body Mass Index - - documented in this encounter Progress Notes Michel Jerez MD - 09/15/2005 12:01 AM CDT Progress Notes signed by Michel Jerez MD at 09/26/05 1710 Author: Michel Jerez MD Service: (none) Author Type: Physician Filed: 08/14/10 1217 Note Time: 09/15/05 0001 Status: Signed Material Handler 1St Shift: Michel Jerez MD (Physician) NAME: SHARLENE VARNER MR: [id number] ACCT: [id number] VISIT: [id number] DICTATING CLINICIAN: MICHEL JEREZ MD JOB: [id number] CLINIC PROGRESS NOTE DATE OF VISIT: 09/15/2005 SUBJECTIVE: : 1970. A 35-year-old male who is in today with a growth on the shaft of his penis on the left side. 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 Nahtan has a history of bipolar disorder. He is on multiple medications including Zyprexa. He wonders about his blood sugar. OBJECTIVE: VS: BP: 126/74. P: 96. Wt: 237 lb male. The shaft of the penis at the base on the left side there is a small tag which does not have the appearance of a wart. ASSESSMENT: Tag at the base of his penis. PLAN: 1. Under aseptic conditions, Xylocaine with adrenaline analgesia, the area is removed with sharp dissection and bleeding was controlled with silver nitrate. 2. We will obtain a blood sugar today. FINAL ASSESSMENT: 1. Skin tag. 2. Bipolar disorder. AAS:[id number] C: 09/16/05 12:42 DOCUMENT: [id number] documented in this encounter Plan of Treatment Not on filedocumented as of this encounter Visit Diagnoses Not on filedocumented in this encounter Care Teams Soft Sugar Operator Head Relationship Specialty Start Date End Date Michel Jerez MD PCP - General 07/25/10 12/22/10 [facility] [place] [address] documented as of this encounter
--- OUTSIDE RECORDS SUMMARY | 2022-02-12 12:19 | XMS_ITS | Encounter Summary ---
:[address] [facility] [facility] Address [address] [address] Care Team Providers Name Role Phone Antonio Jerez MD Primary Care Provider Encounter Details Date Type Department Care Team Description 03/12/2002 PN Conversion Only RELIGION CONVERSION Kvng Jerez MD [address] [place], [place] [address] (Wo rk) Social History Tobacco Use Types Packs/Day Years Used Date Smoking Tobacco: Never Assessed Sex Assigned at Date Recorded Not on file documented as of this encounter Plan of Treatment Not on filedocumented as of this encounter Visit Diagnoses Not on filedocumented in this encounter Care Teams Merchant Mill Utility Worker Relationship Specialty Start Date End Date Antonio Jerez MD PCP - General 07/25/10 12/22/10 [address] [place] [address] documented as of this encounter
--- OUTSIDE RECORDS SUMMARY | 2022-02-12 12:19 | XMS_ITS | Encounter Summary ---
:1970 Author Organization [facility] Address [address] [place] [address] Care Team Providers Name Role Phone Antonio Jerez MD Primary Care Provider Encounter Details Date Type Department Care Team Description 10/23/2004 Procedure Visit [facility]ida Mtz MD [facility] [facility] . [address] [place] [address] [address] [phone] [place] [address] Social History Tobacco Use Types Packs/Day Years Used Date Smoking Tobacco: Never Assessed Sex Assigned at Date Recorded Not on file documented as of this encounter Last Filed Vital Signs Vital Sign Reading Time Taken Comments Blood Pressure 112/78 10/23/2004 11:24 AM CDT Pulse - - Temperature - - Respiratory Rate - - Oxygen Saturation - - Inhaled Oxygen Concentration - - Weight 97.7 kg (215 lb 6.2 oz) 10/23/2004 11:24 AM C: 9 7.7kg CDT Height - - Body Mass Index - - documented in this encounter Progress Notes Armida Mtz MD - 10/23/2004 12:01 AM CDT Progress Notes signed by Armida Mtz MD at 11/07/04 2142 Author: Armida Mtz MD Service: (none) Author Type: Physician Filed: 08/14/10 0549 Note Time: 10/23/042018 Status: Signed Medical Research Tech: Armida Mtz MD (Physician) NAME: SHARLENE VARNER MR: [id number] ACCT: [id number] VISIT: [id number] DICTATING CLINICIAN: ARMIDA MTZ MD JOB: [id number] CLINIC PROGRESS NOTE DATE OF VISIT: 10/23/2004 SUBJECTIVE: : 1970. [facility]: [id number]. The patient is here for skin tags in his armpits and also he states he has some bumps on his penis. He does have actually two axillary skin tags on the left. These were anesthetized and removed. Additionally he has five penile warts. The difference was discussed with him. These were frozen with liquid nitrogen, to be retreated in two to three weeks. Condoms were recommended to be worn at all times with this course. OBJECTIVE: VS: BP: 112/78. Wt: 215 lb. ASSESSMENT: 1. Skin tags. 2. Venereal warts. PLAN: REANNA:[id number] C: 10/24/04 17:27 DOCUMENT: [id number] documented in this encounter Plan of Treatment Not on filedocumented as of this encounter Visit Diagnoses Not on filedocumented in this encounter Care Teams Rivet Sorter Relationship Specialty Start Date End Date Antonio Jerez MD PCP - General 07/25/10 12/22/10 [facility]5 [place] [address] documented as of this encounter
--- OUTSIDE RECORDS SUMMARY | 2022-02-12 12:20 | XMS_ITS | Encounter Summary ---
:1970 Author Organization [employer] Address [address] [address] Care Team Providers Name Role Phone Antonio Jerez MD Primary Care Provider Encounter Details Date Type Department Care Team Description 03/21/2000 PN Conversion [place] [address] [place], [place] [address] Social History Tobacco Use Types Packs/Day Years Used Date Smoking Tobacco: Never Assessed Sex Assigned at Date Recorded Not on file documented as of this encounter Plan of Treatment Not on filedocumented as of this encounter Visit Diagnoses Not on filedocumented in this encounter Care Teams Axle And Frame Mechanic Relationship Specialty Start Date End Date Antonio Jerez MD PCP - General 07/25/10 12/22/10 [address] [place] [address] documented as of this encounter
--- OUTSIDE RECORDS SUMMARY | 2022-02-12 12:20 | XMS_ITS | Encounter Summary ---
:1970 Author Organization [employer] Address [address] [address] Care Team Providers Name Role Phone Antonio Jerez MD Primary Care Provider Encounter Details Date Type Department Care Team Description 06/16/1998 PN Conversion Only [place] [address] [place], [place] [address] Social History Tobacco Use Types Packs/Day Years Used Date Smoking Tobacco: Never Assessed Sex Assigned at Date Recorded Not on file documented as of this encounter Plan of Treatment Not on filedocumented as of this encounter Visit Diagnoses Not on filedocumented in this encounter Care Teams Kiln Fireman Relationship Specialty Start Date End Date Antonio Jerez MD PCP - General 07/25/10 12/22/10 [address] [place] [address] documented as of this encounter
--- OUTSIDE RECORDS SUMMARY | 2022-02-12 12:20 | XMS_ITS | Encounter Summary ---
:1970 Author Organization [facility] Address [address] [address] Care Team Providers Name Role Phone Antonio Jerez MD Primary Care Provider Encounter Details Date Type Department Care Team Description 04/19/2000 PN Conversion Only [place]COP[place] [address] [place], [place] [address] Social History Tobacco Use Types Packs/Day Years Used Date Smoking Tobacco: Never Assessed Sex Assigned at Date Recorded Not on file documented as of this encounter Plan of Treatment Not on filedocumented as of this encounter Visit Diagnoses Not on filedocumented in this encounter Care Teams Adult Education Professional Relationship Specialty Start Date End Date Antonio Jerez MD PCP - General 07/25/10 12/22/10 [address] [place] [address] documented as of this encounter
--- OUTSIDE RECORDS SUMMARY | 2022-02-12 12:20 | XMS_ITS | Encounter Summary ---
:1970 Author Organization [facility] Address [address] [place] [address] Care Team Providers Name Role Phone Unavailable Primary Care Provider Unavailable Encounter Details Date Type Department Care Team Description 05/25/1987 - 07/22/1988 Hospital Encounter BAHAI CONVERSION Social History Tobacco Use Types Packs/Day Years Used Date Smoking Tobacco: Never Assessed Sex Assigned at Date Recorded Not on file documented as of this encounter Plan of Treatment Not on filedocumented as of this encounter Visit Diagnoses Not on filedocumented in this encounter
--- OUTSIDE RECORDS SUMMARY | 2022-02-12 12:20 | XMS_ITS | Encounter Summary ---
:1970 Author Organization [employer] Address [address] [address] Care Team Providers Name Role Phone Antonio Jerez MD Primary Care Provider Encounter Details Date Type Department Care Team Description 08/16/2000 PN Conversion [place] [address] [place], [place] [address] Social History Tobacco Use Types Packs/Day Years Used Date Smoking Tobacco: Never Assessed Sex Assigned at Date Recorded Not on file documented as of this encounter Plan of Treatment Not on filedocumented as of this encounter Visit Diagnoses Not on filedocumented in this encounter Care Teams Application Technician Relationship Specialty Start Date End Date Antonio Jerez MD PCP - General 07/25/10 12/22/10 [address] [place] [address] documented as of this encounter
--- OUTSIDE RECORDS SUMMARY | 2022-02-12 12:20 | XMS_ITS | Encounter Summary ---
:1970 Author Organization [facility] Address [address], [place] [address] Care Team Providers Name Role Phone Antonio Jerez MD Primary Care Provider Encounter Details Date Type Department Care Team Description 09/11/1999 PN Conversion [place] [address] [place], [place] [address] Social History Tobacco Use Types Packs/Day Years Used Date Smoking Tobacco: Never Assessed Sex Assigned at Date Recorded Not on file documented as of this encounter Plan of Treatment Not on filedocumented as of this encounter Visit Diagnoses Not on filedocumented in this encounter Care Teams Silk Printer Relationship Specialty Start Date End Date Antonio Jerez MD PCP - General 07/25/10 12/22/10 [address] [place] [address] documented as of this encounter
--- OUTSIDE RECORDS SUMMARY | 2022-02-12 12:20 | XMS_ITS | Encounter Summary ---
:1970 Author Organization [email or web address] Address [address], [place] [address] Care Team Providers Name Role Phone Antonio Jerez MD Primary Care Provider Encounter Details Date Type Department Care Team Description 04/10/1999 PN Conversion [place] [address] [place], [place] [address] Social History Tobacco Use Types Packs/Day Years Used Date Smoking Tobacco: Never Assessed Sex Assigned at Date Recorded Not on file documented as of this encounter Plan of Treatment Not on filedocumented as of this encounter Visit Diagnoses Not on filedocumented in this encounter Care Teams Senior Applications Developer Relationship Specialty Start Date End Date Antonio Jerez MD PCP - General 07/25/10 12/22/10 [address] [place] [address] documented as of this encounter
[2022-02-12 12:33] LABS: Chloride* 95 mmol/L (96-114); Potassium* 4.7 mmol/L (3.6-5.1); Sodium* 130 mmol/L (135-149)
[2022-02-12 12:35] LABS: PCR FLU A Negative PCR FLU A (Negative); PCR FLU B Negative PCR FLU B (Negative); PCR RSV Negative PCR RSV (Negative); SARS PCR* Negative SARS-CoV-2 (Negative)
--- NOTE | 2022-02-12 12:35 | ED.GENADULT ---
HPI - General Adult General Date Seen: 02/12/22 Chief complaint: Cough Stated complaint: slurred speech,not improving Time Seen by Provider: 02/12/22 11:17 Source: patient Mode of arrival: ambulatory Limitations: no limitations History of Present Illness HPI narrative: Patient is a nice 52-year-old gentleman who presents here from [place] for evaluation of a cough, the cough now for the last 5-6 days, he notes no fever associated with this, he is coughing up some yellowish stuff, but not green or parminder brown. Does not really have a lot of chest pain with this, but says it does affect him, and thinks it makes him a little bit more lethargic. He has had no history of nausea vomiting, he is a smoker, and wishes he should quit. Smokes approximately 20 cigarettes a day. Does have history in the past of coronary disease with 1 previous cardiac stent. Taking his medications as needed. Has not used any nitroglycerin, has no chest pain associated this no leg pain, no past history of pulmonary emboli, No recent travel history, no occlusive devices on his legs. Patient was recently here 2 days ago for a different problem, and said that is markedly improved. Associated symptoms: denies other symptoms Related Data Home Medications Medication Instructions Recorded Confirmed Risperdal 50 mg IM .[id number] 02/10/22 02/10/22 alprazolam 0.5 mg tablet 0.5 mg PO BID 02/10/22 02/10/22 amlodipine 10 mg tablet 10 mg PO DAILY 02/10/22 02/10/22 aspirin 81 mg tablet,delayed 81 mg PO DAILY 02/10/22 02/10/22 release (Ecotrin Low Strength) buspirone 10 mg tablet 30 mg PO TID 02/10/22 02/10/22 divalproex 500 mg tablet,delayed 1,000 mg PO BID 02/10/22 02/10/22 release empagliflozin 10 mg tablet 10 mg PO DAILY 02/10/22 02/10/22 (Jardiance) famotidine 20 mg tablet 20 mg PO BID 02/10/22 02/10/22 gabapentin 300 mg capsule 900 mg PO TID 02/10/22 02/10/22 insulin aspart U-100 100 unit/mL 10 unit subcut .tid WITH MEALS 02/10/22 02/10/22 (3 mL) subcutaneous pen (Novolog Flexpen U-100 Insulin aspart) insulin degludec 200 unit/mL (3 28 unit subcut QHS 02/10/22 02/10/22 mL) subcutaneous pen (Tresiba FlexTouch U-200 insulin) metformin 1,000 mg tablet 1,000 mg PO BID 02/10/22 02/10/22 metoprolol succinate 50 mg 50 mg PO DAILY 02/10/22 02/10/22 tablet,extended release 24 hr multivitamin (Daily Multi-Vitamin 1 tab PO DAILY 02/10/22 02/10/22 tablet) quetiapine 200 mg tablet 200 mg PO HS 02/10/22 02/10/22 risperidone 3 mg tablet 3 mg PO BID 02/10/22 02/10/22 rosuvastatin 20 mg tablet 20 mg PO HS 02/10/22 02/10/22 trihexyphenidyl 5 mg tablet 5 mg PO BID 02/10/22 02/10/22 Previous Rx's Medication Instructions Recorded amoxicillin 500 mg tablet 500 mg PO TID #30 tabs 02/12/22 amoxicillin 875 mg-potassium 1 tab PO BID #20 tabs 02/12/22 clavulanate 125 mg tablet azithromycin 250 mg tablet See Taper PO DAILY #6 tabs 02/12/22 (Zithromax Z-Christiano) azithromycin 250 mg tablet See Taper PO DAILY #6 tabs 02/12/22 (Zithromax Z-Christiano) Allergies Allergy/AdvReac Type Severity Reaction Status Date / Time aripiprazole [From Abilify] Allergy Mild Verified 02/10/22 10:04 bupropion Allergy Mild Verified 02/10/22 10:04 haloperidol [From Haldol] Allergy Mild Verified 02/10/22 10:04 nitroglycerin Allergy Mild Verified 02/10/22 10:04 thiothixene [From Navane] Allergy Mild Verified 02/10/22 10:04 trifluoperazine Allergy Mild Verified 02/10/22 10:04 [From Stelazine] ziprasidone Allergy Mild Verified 02/10/22 10:04 Review of Systems Status of ROS: Reports: 10 or more systems reviewed and unremarkable except as noted in History and below PFSH PFSH Social History Smoking Status: Current every day smoker How often do you have a drink containing alcohol: never AUDIT-C Alcohol total score: 0 Non-prescribed substance use: denies use service: No Exam Narrative: Exam Narrative: Patient is seen in room 7 in no apparent distress, he is alert oriented speaking normally. With no slurring of his words. His pupils are equal round reactive to light there is no scleral icterus or redness, TMs bilaterally are normal oropharynx is normal, neck is supple full range of motion JVP is flat, no meningismus. There are some crackles noted, in his chest, on the right side, prior dominantly in the upper lobe. Occasional wheezes are noted no signs of respiratory distress, heart sounds no clicks murmurs or gallops S1-S2 are normal, there is no S3-S4 clicks murmurs or gallops, abdomen is soft there is no guarding no organomegaly splenomegaly, no tenderness to palpation, lower extremities reveal no swelling no pitting edema, negative Homans sign moves all extremities independently and well. Const: Vital Signs, click to edit/add: Vital Signs - 24 hr 02/12/22 11:26 Temperature 98.2 F Pulse Rate [Left P ulse Oximeter] 86 Respiratory Rate 14 Blood Pressure [Ri ght Upper Arm] 129/71 Pulse Oximetry 89 Oxygen Delivery Me thod Room Air Documenting provider has reviewed patient's vital signs: yes Course Course Hospital Course: Patient did well here, he continued to cough, his checks x-ray came back showing a right upper lobe infiltrate, given his smoking history I and none otherwise normality of his laboratory tests I think we can discharge him home. His oxygen saturation on room air even though the nurses reddened 89 is actually 93%. It least it was in the room when I saw him. He has a requesting discharge, follow-up will be suggested in 2 weeks with primary care for re-x-ray, and re-evaluation. Strongly suggest smoking cessation, return here if increasing chest pain shortness of breath or other issues. He was very comfortable with this. Vital Signs Vital signs: Initial Vital Signs Temperature 98.2 F 02/12/22 11:26 Temperature Source Temporal Artery Scan 02/12/22 11:26 Pulse Rate 86 02/12/22 11:26 Respiratory Rate 14 02/12/22 11:26 Blood Pressure 129/71 02/12/22 11:26 Blood Pressure Mean 90 02/12/22 11:26 Blood Pressure Position Sitting 02/12/22 11:26 Pulse Oximetry 89 02/12/22 11:26 Oxygen Delivery Method 02/12/22 11:26 Vital Signs Temperature 98.2 F 02/12/22 11:26 Pulse Rate 86 02/12/22 11:26 Respiratory Rate 14 02/12/22 11:26 Blood Pressure 129/71 02/12/22 11:26 Pulse Oximetry 89 02/12/22 11:26 Oxygen Delivery Method 02/12/22 11:26 Temperature 98.2 F 02/12/22 11:26 Pulse Rate 86 02/12/22 11:26 Respiratory Rate 14 02/12/22 11:26 Blood Pressure 129/71 02/12/22 11:26 Pulse Oximetry 89 02/12/22 11:26 Oxygen Delivery Method 02/12/22 11:26 Medical Decision Making MDM Narrative Medical decision making narrative: Differential diagnosis include a viral upper respiratory illness, histoplasmosis, tuberculosis, pneumonia, COPD exacerbation, emphysema, strep throat illness, bronchitis, asthma, reactive airway disease, chronic cough, medication side effects, allergic rhinitis with postnasal drip, foreign body aspiration, aspiration pneumonia, bronchiolitis, and gastroesophageal reflux disease as well as multiple other considerations. Medical Records Medical records reviewed: Yes I reviewed the patient's medical records Lab Data Lab results reviewed: Yes I reviewed the patient's lab results Labs: Lab Results 02/12/22 02/12/22 02/12/22 Range/Units 11:48 12:05 12:05 WBC 8.99 (4.50-11.00) K/uL RBC 3.61 L (4.30-5.90) m/uL Hgb 11.2 L (13.5-17.5) gm/dL Hct 32.6 L (37.0-53.0) % MCV 90 (80-100) fL MCH 31 (26-34) pg MCHC 34 (32-36) gm/dL RDW Coeff of Arlene 11.8 (11.5-15.5) % Plt Count 161 (140-440) K/uL Neut % (Auto) 55.7 (42.0-72.0) % Lymph % (Auto) 24.1 (20-44) % Overton % (Auto) 19.7 H (0.0-11.0) % Eos % (Auto) 0.2 (0.0-7.0) % Baso % (Auto) 0.2 (0.0-3.0) % Neut # (Auto) 5.00 (1.7-7.0) K/uL Lymph # (Auto) 2.17 (0.90-2.90) K/uL Overton # (Auto) 1.80 H (0.00-0.90) K/UL Eos # (Auto) 0.02 (0.00-0.50) K/uL Baso # (Auto) 0.02 (0.00-0.30) K/uL Abs Immat Gran (auto) 0.01 (0.00-0.30) K/uL Sodium 130 L (135-149) mmol/L Potassium 4.7 (3.6-5.1) mmol/L Chloride 95 L (96-114) mmol/L Carbon Dioxide 29 (20-32) mmol/L BUN 22 (7-30) mg/dL Creatinine 1.4 (0.5-1.5) mg/dL Estimated Creat Clear 63.73 Estimated GFR 60 ml/min Glucose 65 (60-115) mg/dL Calcium 8.9 (8.4-10.6) mg/dL C-Reactive Protein 7.2 H (0.5-1.0) mg/dL NT-Pro-B Natriuret Pep 1490 H (0-125) PG/mL SARS-CoV-2 (PCR) Negative SARS-CoV-2 (Negative) Influenza Type A (PCR) Negative PCR FLU A (Negative) Influenza Type B (PCR) Negative PCR FLU B (Negative) RSV (PCR) Negative PCR RSV (Negative) Imaging Data Chest x-ray: Attestation: I have reviewed the pertinent imaging results. My impression: Right upper lobe infiltrate consistent with pneumonia. Radiologist's impression: Patient: SHARLENE VARNER Facility: [facility] Site . Site : 1970 Study: XRay Chest PA & LAT-02/12/2022 12:10:03 PM Ordering Physician: Radha Servin Final Report: INDICATION: Cough. TECHNIQUE: Chest 2 views. COMPARISON: Chest x-ray from 02/10/2022. FINDINGS: Lungs: Increasing streaky right upper lobe opacities. No focal consolidation. Pleura: No pleural effusion or pneumothorax. Heart and Mediastinum: The cardiomediastinal silhouette is normal. The vessels are unremarkable. Bones: Unremarkable. IMPRESSION: Increasing right upper lobe opacities could be developing pneumonia in the appropriate clinical setting. Dictated by Tha Scott MD @ 02/12/2022 12:27:25 PM (Electronic Signature) Discharge Plan Discharge Clinical Impression: Tobacco abuse, Pneumonia Patient Disposition: Home, Self-Care Condition: Stable Instructions: How to Stop Smoking (ED), Community Acquired Pneumonia (ED) Additional Instructions: Home rest medications as directed, follow-up with primary care in 2 weeks for recheck, and consideration of repeat x-ray. Strongly suggest smoking cessation, return here if increasing chest pain shortness of breath or issues Prescriptions: New amoxicillin 500 mg tablet 500 mg PO TID Qty: 30 0RF azithromycin [Zithromax Z-Christiano] 250 mg tablet See Taper PO DAILY Qty: 6 0RF Taper: Z-CHRISTIANO 500 mg Q24H for 1 Day and 0 Hour 250 mg Q24H for 4 Days and 0 Hour Rx Instructions: For 250 mg dose pack: take 500 mg today (day 1), then 250 mg for 4 days (days 2-5) orally daily; amoxicillin-pot clavulanate 875-125 mg tablet 1 tab PO BID Qty: 20 0RF azithromycin [Zithromax Z-Christiano] 250 mg tablet See Taper PO DAILY Qty: 6 0RF Taper: Z-CHRISTIANO 500 mg Q24H for 1 Day and 0 Hour 250 mg Q24H for 4 Days and 0 Hour Rx Instructions: For 250 mg dose pack: take 500 mg today (day 1), then 250 mg for 4 days (days 2-5) orally daily; No Action alprazolam 0.5 mg tablet 0.5 mg PO BID amlodipine 10 mg tablet 10 mg PO DAILY aspirin [Ecotrin Low Strength] 81 mg tablet,delayed release (DR/EC) 81 mg PO DAILY buspirone 10 mg tablet 30 mg PO TID divalproex 500 mg tablet,delayed release (DR/EC) 1,000 mg PO BID famotidine 20 mg tablet 20 mg PO BID gabapentin 300 mg capsule 900 mg PO TID Jardiance 10 mg tablet 10 mg PO DAILY metformin 1,000 mg tablet 1,000 mg PO BID metoprolol succinate 50 mg tablet extended release 24 hr 50 mg PO DAILY multivitamin [Daily Multi-Vitamin] Tablet 1 tab PO DAILY insulin aspart U-100 [Novolog Flexpen U-100 Insulin] 100 unit/mL (3 mL) insulin pen 10 unit subcut .tid WITH MEALS quetiapine 200 mg tablet 200 mg PO HS risperidone 3 mg tablet 3 mg PO BID Risperdal 50 mg 50 mg IM .[id number] rosuvastatin 20 mg tablet 20 mg PO HS insulin degludec [Tresiba FlexTouch U-200] 200 unit/mL (3 mL) insulin pen 28 unit subcut QHS trihexyphenidyl 5 mg tablet 5 mg PO BID Rx Instructions: give with food (meal/snack) Follow Up/Referrals: Zhane Stanley DO [Primary Care Provider] - Stand Alone Forms: [facility] Info Instructions
[2022-02-12 12:36] LABS: Creatinine* 1.4 mg/dL (0.5-1.5); Est. Creatinine Clearance* 63.73; Estimated Glomerular Filt Rate 60 ml/min
[2022-02-12 12:37] LABS: Blood Urea Nitrogen* 22 mg/dL (7-30); Calcium* 8.9 mg/dL (8.4-10.6); Carbon Dioxide* 29 mmol/L (20-32); Glucose* 65 mg/dL (60-115)
[2022-02-12 12:39] LABS: C Reactive Protein* 7.2 mg/dL (0.5-1.0)
[2022-02-12 12:46] LABS: NT Pro B Type NatriureticPept* 1490 PG/mL (0-125)
== END 2022-02-12 14:05 | disposition home or self-care (01) ==
PROVIDERS: Emergency Provider Family Medicine; PCP Family Medicine
DX: J18.9 Pneumonia, unspecified organism (principal); Z72.0 Tobacco use
CPT/HCPCS: 36415; 71046; 80048; 83880; 85025; 86140; 87502; 87634; 87635; 99283; 99284

== ENCOUNTER 2022-02-14 10:10 | Observation (INO) | payer MEDICARE, MEDICAID, SELFPAY ==
[2022-02-14] VITALS (24 sets, daily range): BP systolic 116–168; BP diastolic 63–88; PULSE 71–90; RESP 18–20; TEMP 36.4–37.1; O2SAT 85–97; BMI 31.6; BMI 30.1
--- NOTE | 2022-02-14 10:31 | CRLHL7_ITS ---
For Patients: As a result of the Cures Act, medical imaging exams and procedure reports are released immediately into your electronic medical record. You may view this report before your referring provider. If you have questions, please contact your health care provider. INDICATION: SHORT OF BREATH HISTORY: Shortness of breath. COMPARISON: 02/12/2022. TECHNIQUE: Chest one-view portable. FINDINGS: Linear right upper lobe opacities were described on the study from 02/12/2022. These are not reproduced today. Heart size and pulmonary vasculature are normal. There is no acute airspace disease or pneumothorax. Central airway is normal. Osseous structures are intact. IMPRESSION: No acute airspace disease identified on today`s exam. Dictated by Leno Alejo MD @ 02/14/2022 11:13:30 AM Dictated by: Leno Alejo MD @ 02/14/2022 11:13:38 (Electronically Signed)
--- NOTE | 2022-02-14 10:33 | ED.GENADULT ---
HPI - General Adult General Chief complaint: Unspecified Complaint, Adult Stated complaint: Drooling, slurring, and low O2 Time Seen by Provider: 02/14/22 10:25 History of Present Illness HPI narrative: This patient is a 52-year-old male who lives in an assisted living in comes in for his 3rd visit this week. He was seen by me initially because of altered mental status that resolved. At that time it seem like he was slow to respond and had slurred speech typical of benzodiazepine effect. He does take Xanax but denied taking any thing additionally at that time. Over several hours his symptoms improved. His 2nd visit here he was diagnosed with pneumonia. He is taking medication but returns today because of hypoxia and bilateral pedal edema. On arrival his oximetry at the time of my visit was at times in 88 or 89% range on room air. He does not have tachycardia. He does have bilateral rhonchi. He states that he took a salt tablet last night to treat some GI symptoms. He states that he has since developed bilateral pedal edema. Related Data Home Medications Medication Instructions Recorded Confirmed Risperdal 50 mg IM .[id number] 02/10/22 02/10/22 alprazolam 0.5 mg tablet 0.5 mg PO BID 02/10/22 02/10/22 amlodipine 10 mg tablet 10 mg PO DAILY 02/10/22 02/10/22 aspirin 81 mg tablet,delayed 81 mg PO DAILY 02/10/22 02/10/22 release (Ecotrin Low Strength) buspirone 10 mg tablet 30 mg PO TID 02/10/22 02/10/22 divalproex 500 mg tablet,delayed 1,000 mg PO BID 02/10/22 02/10/22 release empagliflozin 10 mg tablet 10 mg PO DAILY 02/10/22 02/10/22 (Jardiance) famotidine 20 mg tablet 20 mg PO BID 02/10/22 02/10/22 gabapentin 300 mg capsule 900 mg PO TID 02/10/22 02/10/22 insulin aspart U-100 100 unit/mL 10 unit subcut .tid WITH MEALS 02/10/22 02/10/22 (3 mL) subcutaneous pen (Novolog Flexpen U-100 Insulin aspart) insulin degludec 200 unit/mL (3 28 unit subcut QHS 02/10/22 02/10/22 mL) subcutaneous pen (Tresiba FlexTouch U-200 insulin) metformin 1,000 mg tablet 1,000 mg PO BID 02/10/22 02/10/22 metoprolol succinate 50 mg 50 mg PO DAILY 02/10/22 02/10/22 tablet,extended release 24 hr multivitamin (Daily Multi-Vitamin 1 tab PO DAILY 02/10/22 02/10/22 tablet) quetiapine 200 mg tablet 200 mg PO HS 02/10/22 02/10/22 risperidone 3 mg tablet 3 mg PO BID 02/10/22 02/10/22 rosuvastatin 20 mg tablet 20 mg PO HS 02/10/22 02/10/22 trihexyphenidyl 5 mg tablet 5 mg PO BID 02/10/22 02/10/22 Previous Rx's Medication Instructions Recorded amoxicillin 500 mg tablet 500 mg PO TID #30 tabs 02/12/22 amoxicillin 875 mg-potassium 1 tab PO BID #20 tabs 02/12/22 clavulanate 125 mg tablet azithromycin 250 mg tablet See Taper PO DAILY #6 tabs 02/12/22 (Zithromax Z-Christiano) azithromycin 250 mg tablet See Taper PO DAILY #6 tabs 02/12/22 (Zithromax Z-Christiano) Allergies Allergy/AdvReac Type Severity Reaction Status Date / Time aripiprazole [From Abilify] Allergy Mild Verified 02/10/22 10:04 bupropion Allergy Mild Verified 02/10/22 10:04 haloperidol [From Haldol] Allergy Mild Verified 02/10/22 10:04 nitroglycerin Allergy Mild Verified 02/10/22 10:04 thiothixene [From Navane] Allergy Mild Verified 02/10/22 10:04 trifluoperazine Allergy Mild Verified 02/10/22 10:04 [From Stelazine] ziprasidone Allergy Mild Verified 02/10/22 10:04 Review of Systems Status of ROS: Reports: 10 or more systems reviewed and unremarkable except as noted in History and below Narrative: Constitutional: No fevers, no weight gain or loss. Eyes: No discharge. No vision changes. HENT: No congestion, no sore throat, no ear pain. Cardiovascular: No chest pain, no palpitations. Respiratory: He has cough and some shortness of breath. Recent diagnosis of pneumonia. Gastrointestinal: No abdominal pain, no vomiting, no diarrhea. Genitourinary: No dysuria, no hematuria. Musculoskeletal: Normal range of motion. Skin: No rashes, no pruritis. Neurological: No dizziness, weakness, sensory change, speech change. Endo/Heme/Allergies: No bruising or bleeding. No polydipsia. Pysch: no suicidality, no anxiety, no insomnia. All other systems reviewed and are negative. [facility] Social History Smoking Status: Current every day smoker How often do you have a drink containing alcohol: never AUDIT-C Alcohol total score: 0 Non-prescribed substance use: denies use service: No Exam Narrative: Exam Narrative: Constitutional: Well-developed, well-nourished, no acute distress. HEENT: Normocephalic, atraumatic. Neck: Normal range of motion. Nontender. Supple. Heart: Regular. No murmurs. Normal rate. Intact distal pulses. Lungs: No chest discomfort. Bilateral rhonchi. Abdomen: Normal bowel sounds. Nontender. No rebound tenderness. Genitalia: Deferred. Back: No midline tenderness. Normal range of motion. Extremities: Normal range of motion. No injury. Bilateral large pedal edema. Skin: Intact. No rash. Warm. No erythema or pallor. Neurologic: No altered sensation. No weakness. Alert and oriented. Psychiatric: No suicidality. No anxiety or depression. No insomnia. Nursing notes and vitals signs are reviewed. Const: Vital Signs, click to edit/add: Vital Signs - 24 hr 02/14/22 10:20 02/14/22 12:00 02/14/22 10:51 Temperature 98 F Pulse Rate 71 Pulse Rate [Pulse Oximeter] 73 82 Respiratory Rate 18 20 Blood Pressure Blood Pressure [Ri ght Upper Arm] 116/65 118/71 Pulse Oximetry 91 94 88 Oxygen Delivery Me thod Room Air Nasal Cannula 02/14/22 10:57 02/14/22 11:00 02/14/22 11:02 Temperature Pulse Rate 73 72 75 Pulse Rate [Pulse Oximeter] Respiratory Rate Blood Pressure 122/68 133/74 Blood Pressure [Ri ght Upper Arm] Pulse Oximetry 87 L 88 89 Oxygen Delivery Me thod 02/14/22 11:30 02/14/22 11:32 02/14/22 12:00 Temperature Pulse Rate 73 71 79 Pulse Rate [Pulse Oximeter] Respiratory Rate Blood Pressure 126/68 Blood Pressure [Ri ght Upper Arm] Pulse Oximetry 90 91 96 Oxygen Delivery Me thod 02/14/22 12:02 02/14/22 12:30 02/14/22 12:33 Temperature Pulse Rate 78 82 84 Pulse Rate [Pulse Oximeter] Respiratory Rate Blood Pressure 118/71 140/76 H Blood Pressure [Ri ght Upper Arm] Pulse Oximetry 97 93 93 Oxygen Delivery Me thod 02/14/22 13:00 02/14/22 13:02 02/14/22 13:30 Temperature Pulse Rate 83 84 82 Pulse Rate [Pulse Oximeter] Respiratory Rate Blood Pressure 141/74 H Blood Pressure [Ri ght Upper Arm] Pulse Oximetry 87 L 85 L 93 Oxygen Delivery Me thod 02/14/22 13:33 02/14/22 14:00 02/14/22 14:02 Temperature Pulse Rate 79 89 89 Pulse Rate [Pulse Oximeter] Respiratory Rate Blood Pressure 136/78 143/76 H Blood Pressure [Ri ght Upper Arm] Pulse Oximetry 88 91 91 Oxygen Delivery Me thod 02/14/22 14:31 Temperature Pulse Rate 85 Pulse Rate [Pulse Oximeter] Respiratory Rate Blood Pressure Blood Pressure [Ri ght Upper Arm] Pulse Oximetry 85 L Oxygen Delivery Me thod Course Vital Signs Vital signs: Initial Vital Signs Temperature 98 F 02/14/22 10:20 Temperature Source Temporal Artery Scan 02/14/22 10:20 Pulse Rate 73 02/14/22 10:20 Respiratory Rate 18 02/14/22 10:20 Blood Pressure 116/65 02/14/22 10:20 Blood Pressure Mean 82 02/14/22 10:20 Blood Pressure Position Supine 02/14/22 10:20 Pulse Oximetry 91 02/14/22 10:20 Oxygen Delivery Method 02/14/22 10:20 Vital Signs Temperature 98 F 02/14/22 10:20 Pulse Rate 73 02/14/22 10:20 Respiratory Rate 18 02/14/22 10:20 Blood Pressure 116/65 02/14/22 10:20 Pulse Oximetry 91 02/14/22 10:20 Oxygen Delivery Method 02/14/22 10:20 Temperature 98 F 02/14/22 10:20 Pulse Rate 85 02/14/22 14:31 Respiratory Rate 20 02/14/22 12:00 Blood Pressure 143/76 H 02/14/22 14:02 Pulse Oximetry 85 L 02/14/22 14:31 Oxygen Delivery Method 02/14/22 12:00 Medical Decision Making MDM Narrative Medical decision making narrative: This patient comes in for evaluation and actually becomes his 3rd visit here this week. He was noted to have oximetry in the low 80s% when resting still in the room. He does not particularly complain of shortness of breath. He is being treated for pneumonia. Chest x-ray today shows no acute findings of pneumonia or congestive heart failure. He does have bilateral pedal edema. His BNP is elevated but less so compared with his last visit. During his stay here he did have a choking event when taking some small amount of food and drink. He may be at risk for aspiration. He did receive an IV dose of Lasix. He has been benefiting from oxygen and when the oxygen was turned off he hovered around 90% oximetry on room air when in conversation with me. When I left the room and he was resting or perhaps entering into sleep he decreased to low 80s % oximetry. I did speak with the hospitalist carton filling machine operator, Dr. Ramirez, regarding these matters. He agrees to bring him in the hospital overnight for further evaluation and treatment. Lab Data Labs: Lab Results 02/14/22 02/14/22 02/14/22 Range/Units 10:49 10:49 10:49 WBC 7.25 (4.50-11.00) K/uL RBC 3.43 L (4.30-5.90) m/uL Hgb 10.6 L (13.5-17.5) gm/dL Hct 30.9 L (37.0-53.0) % MCV 90 (80-100) fL MCH 31 (26-34) pg MCHC 34 (32-36) gm/dL RDW Coeff of Arlene 11.8 (11.5-15.5) % Plt Count 175 (140-440) K/uL Neut % (Auto) 53.7 (42.0-72.0) % Lymph % (Auto) 24.0 (20-44) % Rice % (Auto) 19.9 H (0.0-11.0) % Eos % (Auto) 1.8 (0.0-7.0) % Baso % (Auto) 0.3 (0.0-3.0) % Neut # (Auto) 3.90 (1.7-7.0) K/uL Lymph # (Auto) 1.74 (0.90-2.90) K/uL Rice # (Auto) 1.40 H (0.00-0.90) K/UL Eos # (Auto) 0.13 (0.00-0.50) K/uL Baso # (Auto) 0.02 (0.00-0.30) K/uL Abs Immat Gran (auto) 0.02 (0.00-0.30) K/uL Sodium 133 L (135-149) mmol/L Potassium 4.4 (3.6-5.1) mmol/L Chloride 97 (96-114) mmol/L Carbon Dioxide 28 (20-32) mmol/L BUN 19 (7-30) mg/dL Creatinine 1.1 (0.5-1.5) mg/dL Estimated Creat Clear 81.11 Estimated GFR 81 ml/min Glucose 63 (60-115) mg/dL Calcium 8.4 (8.4-10.6) mg/dL NT-Pro-B Natriuret Pep 668 H Cancelled (0-125) PG/mL SARS-CoV-2 (PCR) (Negative) Influenza Type A (PCR) (Negative) Influenza Type B (PCR) (Negative) RSV (PCR) (Negative) 02/14/22 Range/Units 10:49 WBC (4.50-11.00) K/uL RBC (4.30-5.90) m/uL Hgb (13.5-17.5) gm/dL Hct (37.0-53.0) % MCV (80-100) fL MCH (26-34) pg MCHC (32-36) gm/dL RDW Coeff of Arlene (11.5-15.5) % Plt Count (140-440) K/uL Neut % (Auto) (42.0-72.0) % Lymph % (Auto) (20-44) % Rice % (Auto) (0.0-11.0) % Eos % (Auto) (0.0-7.0) % Baso % (Auto) (0.0-3.0) % Neut # (Auto) (1.7-7.0) K/uL Lymph # (Auto) (0.90-2.90) K/uL Rice # (Auto) (0.00-0.90) K/UL Eos # (Auto) (0.00-0.50) K/uL Baso # (Auto) (0.00-0.30) K/uL Abs Immat Gran (auto) (0.00-0.30) K/uL Sodium (135-149) mmol/L Potassium (3.6-5.1) mmol/L Chloride (96-114) mmol/L Carbon Dioxide (20-32) mmol/L BUN (7-30) mg/dL Creatinine (0.5-1.5) mg/dL Estimated Creat Clear Estimated GFR ml/min Glucose (60-115) mg/dL Calcium (8.4-10.6) mg/dL NT-Pro-B Natriuret Pep (0-125) PG/mL SARS-CoV-2 (PCR) Negative SARS-CoV-2 (Negative) Influenza Type A (PCR) Negative PCR FLU A (Negative) Influenza Type B (PCR) Negative PCR FLU B (Negative) RSV (PCR) Negative PCR RSV (Negative) Imaging Data Chest x-ray: Radiologist's impression: No acute airspace disease identified on today`s exam. ECG Data Attestation: I personally reviewed and interpreted this ECG as follows: Interpretation: Normal sinus rhythm. Rate is 72 beats per minute. There are no ST or T-wave abnormalities. Discharge Plan Discharge Clinical Impression: Hypoxia, Altered mental status Patient Disposition: Admitted As Inpatient Prescriptions: No Action alprazolam 0.5 mg tablet 0.5 mg PO BID amlodipine 10 mg tablet 10 mg PO DAILY aspirin [Ecotrin Low Strength] 81 mg tablet,delayed release (DR/EC) 81 mg PO DAILY buspirone 10 mg tablet 30 mg PO TID divalproex 500 mg tablet,delayed release (DR/EC) 1,000 mg PO BID famotidine 20 mg tablet 20 mg PO BID gabapentin 300 mg capsule 900 mg PO TID Jardiance 10 mg tablet 10 mg PO DAILY metformin 1,000 mg tablet 1,000 mg PO BID metoprolol succinate 50 mg tablet extended release 24 hr 50 mg PO DAILY multivitamin [Daily Multi-Vitamin] Tablet 1 tab PO DAILY insulin aspart U-100 [Novolog Flexpen U-100 Insulin] 100 unit/mL (3 mL) insulin pen 10 unit subcut .tid WITH MEALS quetiapine 200 mg tablet 200 mg PO HS risperidone 3 mg tablet 3 mg PO BID Risperdal 50 mg 50 mg IM .[id number] rosuvastatin 20 mg tablet 20 mg PO HS insulin degludec [Tresiba FlexTouch U-200] 200 unit/mL (3 mL) insulin pen 28 unit subcut QHS trihexyphenidyl 5 mg tablet 5 mg PO BID Rx Instructions: give with food (meal/snack) amoxicillin 500 mg tablet 500 mg PO TID Qty: 30 0RF azithromycin [Zithromax Z-Christiano] 250 mg tablet See Taper PO DAILY Qty: 6 0RF Taper: Z-CHRISTIANO 500 mg Q24H for 1 Day and 0 Hour 250 mg Q24H for 4 Days and 0 Hour Rx Instructions: For 250 mg dose pack: take 500 mg today (day 1), then 250 mg for 4 days (days 2-5) orally daily; amoxicillin-pot clavulanate 875-125 mg tablet 1 tab PO BID Qty: 20 0RF azithromycin [Zithromax Z-Christiano] 250 mg tablet See Taper PO DAILY Qty: 6 0RF Taper: Z-CHRISTIANO 500 mg Q24H for 1 Day and 0 Hour 250 mg Q24H for 4 Days and 0 Hour Rx Instructions: For 250 mg dose pack: take 500 mg today (day 1), then 250 mg for 4 days (days 2-5) orally daily; Follow Up/Referrals: Zhane Stanley DO [Primary Care Provider] -
--- OUTSIDE RECORDS SUMMARY | 2022-02-14 10:37 | XMS_ITS | Clinical Summary ---
:1970 Author Organization [facility] [place] [address] Care Team Providers Name Role Phone Glenys Alcantar MD Unavailable [facility] [place] Unavailable Zhane Stanley DO Primary [...] 2 diabetes mellitus without complication, unspecified whether nursing home insulin use (HC) polyethylene Drink up to [...] EVERY 22 tabletIndications: NIGHT AT CAD in sitka artery BEDTIME FreeStyle Bharath 2 To be used to 1 Each 0 11/21/19 Active ReaderIndications: read blood 22 Type 2 diabetes sugars per mellitus with collar baster jumpbasting's diabetic directions. polyneuropathy, with long-term current use [...] Telephone Shaqra, Zhane Анна, Refill Req uest (Felicity DO Cough Drops - C samra, Ibuprofen Tab 2 00mg ) 01/28/2022 Refill Shaqra, Zhane Анна, Refill Req uest (Accu-chek DO Guide Test Stri ps) 01/19/2022 Refill Shaqra, Zhane Анна, Refill Req uest (HYDROXYZ DO HCL TAB) 01/14/2022 Telephone Sir Stanleyi Анна, Referral DO 01/12/2022 Telephone Sir Stanleyi Анна, orders DO 12/29/2021 Refill Shaqra, Hzane Анна, Refill Req uest (NOVOLOG DO INJFLEX) [...] Name Administration Dates Next Due COVID-19 vaccine (BombBomb 09/16/2020, 08/26/2020 30mcg/0.3mL) PF, MDV Hepatitis B [...] Zhane Stanley , DO [address] [place] [address] (Wo rk) Health Maintenance Due [...] that all CT scans at this [facility] use dose modulation, iterative reconstruction [...] ?? If you have questions, please contact [facility] health care provider. CT CHEST SCREENING LOW-DOSE [...] DISH . Upper abdomen: Unremarkable. Keila Diamond DENTAL CLAIMS PROCESSOR CT from Last 3 Months Insurance Payer Benefit Plan / Subscriber ID Effective Dates Phone Addre ss Type Group MEDICARE PART A MEDICARE PART [id number] 1995-Presen ATTN: CLAIMS - HB USE ONLY A HB ONLY t [address] [place] [address] MEDICARE PART B MEDICARE PART [id number] 2009-Presen ATTN: CLAIMS - HB USE ONLY B HB ONLY t [address] [place] [address] MEDICARE - PB MEDICARE PB [id number] 2009-Presen ATTN : CLAIMS USE ONLY ONLY t [address] [place] [address] MEDICARE PPS HC MEDICARE [id number] 1995-Presen [address] 2019 [address] [place] [address] [place] [id number] 2020-Presen [address] [place] [address] Advance Directives Documents on File Type Date Recorded Patient Bench Worker Helper Explanati on POLST 08/20/2020 5:18 PM POLST [...] Code Status Discussion: Not Discussed Care Teams Recovery Manager Relationship Specialty Start Date End Date Zhane Stanley DO PCP - General Internal Medicine 09/08/20 [address] [place] [address] Glenys Alcantar MD Endocrinology 05/03/17 [address] [place] [address] [facility], 05/21/20 [place] Samantha Minaya, Pharmacist Medication Pharmacology 10/21/20 PharmD Management [address] [place], [place] [id number]
--- OUTSIDE RECORDS SUMMARY | 2022-02-14 10:38 | XMS_ITS | Encounter Summary ---
:1970 [facility] Address [address] [place] [address] Care Team Providers Name Role Phone Gagandeep Michaud MD Primary Care Provider Reason for Visit Reason Comments Refill amLODIPine (NORVASC) 5 MG ta blet [Pharmacy Med Name: amLODIPine Besylate 5 MG Tablet] Encounter Details Date Type Department Care Team Description 09/02/2020 Refill Gagandeep Storm, Refil l (amLODIPine Medicine (NORVASC) 5 MG tablet [address] [Pharmacy Med Name: KATIANA Vigil [address] [address] [address] amLODIPine Besylate 5 MG [phone] (Wo rk) Tablet]) Social History Tobacco Use [...] office visit) Last qualifying visit: 06/09/2020 (with GGAANDEEP MICHAUD) Next scheduled visit: None Powered by [email or web address] by [employer], Reference: [id number], 09/02/2020 1:07:36 PM CDT, Pool:MANUEL LANDAILL ([id number]) documented in this encounter Plan of Treatment Not on filedocumented as of this encounter Visit Diagnoses Not on filedocumented in this encounter Care Teams Clerical Warehouse Worker Relationship Specialty Start Date End Date Gagandeep Michaud MD PCP - General 05/17/12 [address] [facility] [place] [address] Vane Zarate Psychiatrist Psychiatry 03/22/12 [facility] Mental Health Psychotherapist 08/04/17 [facility] Stamps Or Coins Salesperson 09/13/17 documented as of this encounter
--- OUTSIDE RECORDS SUMMARY | 2022-02-14 10:38 | XMS_ITS | Encounter Summary ---
:1970 Author Organization [facility] Address [address], [place] [address] Care Team Providers Name Role Phone Gagandeep Hinojosa MD Primary Care Provider Reason for Visit Reason Comments Patient Care Coordination Encounter Details Date Type Department Care Team Description 06/24/2020 Care Coord [facility] Deborah Rodriguse Patien t Care Phone Medicine [facility] Coordination [facility] [address] [place] [address] [phone] Social History Tobacco Use Types Packs/Day Years [...] routed to JOSETTE CC as an FYI TS CENTRE MANAGER documented in this encounter Plan of Treatment Not on filedocumented as of this encounter Visit Diagnoses Diagnosis Complex care coordination - Primary documented in this encounter Care Teams Live Truck Technician Relationship Specialty Start Date End Date Gagandeep Hinojosa MD PCP - General 05/17/12 [address] [facility] [place] [address] Vane Zarate Psychiatrist Psychiatry 03/22/12 [facility] Mental Health Psychotherapist 08/04/17 [facility] Cell Inspector 09/13/17 documented as of this encounter
--- OUTSIDE RECORDS SUMMARY | 2022-02-14 10:38 | XMS_ITS | Clinical Summary ---
:1970 Author [facility] Address [address], [place] [address] Care Team Providers Name Role Phone Gagandeep [...] for each transition of care or referral. eReceipts Allergies Active Allergy Reactions Severity Noted Date [...] scan blood 1 Each 0 12/04/2019 Active Senior Advisory (FREESTYLE TALAT 2 sugars per hotel recreational facilities manager READER SYSTM) instructions. DEVIIndications: Uncontrolled type 2 [...] might be differe nt from the original. Senior Budget Analyst: ERLIN Salas [phone] Care coordination focus: T2DM, financial resources Living situation: lives with spouse Important notes: SSDI, significant insul in resistance, regularly reaches Medicare Coverage Gap and cannot afford insulin Problem Noted Date Non-proliferative diabetic retinopathy 05/02/2019 Hyponatremia 01/16/2018 Tinea versicolor 07/18/2015 Tobacco use disorder 10/26/2012 Anemia 05/02/2012 Overview: Anemia, unspecified Microalbuminuria 02/04/2012 OK, old 09/16/2011 History of PTCA 09/16/2011 Overview: [...] Bipolar I disorder 09/15/2005 Overview: LW Onset: [id number] ; Bipolar I Dis Resolved Problems Problem Noted Date Resolved Date Tobacco abuse 02/24/2016 12/18/2018 ACS (acute coronary syndrome) 10/25/2012 02/16/2017 Mass on back 05/02/2012 10/25/2012 [facility], active care coordination 03/22/2012 07/27/2018 Overview: Senior Budget Analyst: JOSETTE Yip [phone] Care coordination focus: T2DM, financial resources Living situation: lives with spouse Important notes: SSDI, significant insul in resistance, uses Relion insulin, commonly reaches Medicare Cover age Gap See care plan under Chart Review > Misc Reports > AMB [facility] CARE PLAN REPORT Last Assessment & Plan: Senior Budget Analyst: Lesly Rodrigues [facility] Care coordination focus: mental health Living situation: Lives with Important notes: case management star ting LFTs abnormal 02/02/2012 10/25/2012 S/P angioplasty with stent 05/26/2011 10/25/2012 Overview: Apr 2011 Plantar wart 05/26/2011 10/25/2012 Acute OK 05/01/2011 02/01/2012 Hypertriglyceridemia 12/11/2010 10/25/2012 Overview: >5000 [...] Influenza IIV4 (Quadrivalent) 0.5mL 01/07/2020, 01/16/2018, 02/16/2017, ([id number]) 02/24/2016, 03/27/2015, 01/16/2014, 03/14/2013 Influenza, Unspecified Formulation [...] Comments Blood Pressure 132/88 06/09/2020 4:43 PM MICROFILM MACHINE OPERATOR Pulse 99 06/09/2020 4:43 PM MICROFILM MACHINE OPERATOR Temperature 38.2 ??C (100.8 ??F) 05/02/2019 11:31 AM MICROFILM MACHINE OPERATOR Respiratory Rate 16 03/07/2013 2:52 PM MICROFILM MACHINE OPERATOR Oxygen Saturation 97% 10/27/2012 3:52 PM CDT Inhaled Oxygen Concentration - - Weight 88.9 kg (196 lb) 06/09/2020 4:43 PM MICROFILM MACHINE OPERATOR Height 177.8 cm (5' 10) 12/04/2019 10:49 [...] Typ e / Group Dates MEDICARE MEDICARE [id number] 2009-Pres [facility] care ent SENIOR SENIOR [id number]-Pres [phone] [facility] ent [id number] SERVICES SERVICES SERVICES [address] [place] [address] JACLYN TALBOT [place] [id number] 2020-Pres [address] Med icaid ent [id number] [place] LEAD INSPECTOR [place] [address] Yessy Personal/Family Self 1970 [address] [phone] [place], [place] (Work) [address] Yessy Personal/Family Self 1970 [address] ([place] [address] [facility] Corporate Employer c[employer]o [facility] [employer] [address] [place] [address] Advance Directives Latest Code Status on File Code Status Date Activated Date Inactivated Comments Full Code 10/25/2012 7:32 PM 10/27/2012 6:54 PM Full Code 05/14/2011 11:08 AM 05/14/2011 11:30 PM Full Code 04/30/2011 4:27 AM 05/01/2011 12:21 PM Care Teams Dental Chair Assembler Relationship Specialty Start Date End Date Gagandeep Hinojosa MD PCP - General 05/17/12 [address] [facility] [place] [address] Vane Zarate Psychiatrsamantha Psychiatry 03/22/12 [facility] Mental Health Psychotherapist 08/04/17 [facility] Coupling Machine Operator 09/13/17
--- OUTSIDE RECORDS SUMMARY | 2022-02-14 10:38 | XMS_ITS | Encounter Summary ---
:1970 Author Organization [facility]Mon[facility]Los [facility] Center[facility] Address [address] [place] [address] Care Team Providers Name Role Phone Gagandeep [...] Medicine MD succinate (TOPROL XL) [address] MG 24 hour release KATIANA Vigil [address] KATIANA VIGIL [address] tablet [Pharmacy Med [phone] (Wo rk) Name: Metoprolol Succinate ER 50 [...] 1 TABLET BY MOUTH DAILY Interface, Out [employer] Query - 09/02/2020 1:16 PM CDT metoprolol [...] MICHAUD) Next scheduled visit: None Powered by Stkr.it by [email or web address], Reference: [id number], 09/02/2020 1:16:41 PM CDT, Pool:MANUEL REFILL ([id number]) documented in this encounter Plan of Treatment Not on filedocumented as of this encounter Visit Diagnoses Diagnosis Essential hypertension (HRC) Unspecified essential hypertension documented in this encounter Care Teams Gasket Inspector Relationship Specialty Start Date End Date Gagandeep Michaud MD PCP - General 05/17/12 [address] [facility] KATIANA Gerber [address]329 Vane Zarate Psychiatrist Psychiatry 03/22/12 [facility] Psychotherapist 08/04/17 [facility] Gang Vibrator Operator 09/13/17 documented as of this encounter
--- OUTSIDE RECORDS SUMMARY | 2022-02-14 10:38 | XMS_ITS | Encounter Summary ---
:1970 Author Organization [facility] ResearchRe[facility] ServicesSparkplay Media Address [address] [place] [address] Care Team Providers Name Role Phone Gagandeep Hinojosa MD Primary Care Provider Reason for Visit Reason Comments Forms Insulin Treated Diabetes Swati litus Report Encounter Details Date Type Department Care Team Description 06/12/2020 Telephone [place] [facility] Gagandeep Hinojosa, Forms (Insulin Treated Medicine Diabetes Mellitus [address] 14[address] [facility] Report ) [place] [address] [place] [address] [phone] (Wo rk) Social History Tobacco Use Types [...] 6:16 PM CST Form completed and faxed BOWL PAINT TRIMMER Abel Novak MA - 06/13/2020 9:38 AM CST Form filled out and routed to Ashish to sign BOWL PAINT TRIMMER Viviana Anderson - 06/12/2020 12:19 PM CST Forms & Letters What form/letter are you requesting? Insulin Treated Diabetes [facility] This letter/other is needed from: Gagandeep Hinojosa MD for DMV How would you like to receive your completed letter/other? Fax to [place] [facility] at [facility] at this fax number: [phone] Additional comments (related to the above concern): [...] contact you.) Please route to: BRENT Coates BOWL PAINT TRIMMER documented in this encounter Plan of Treatment Not on filedocumented as of this encounter Visit Diagnoses Not on filedocumented in this encounter Care Teams Shore Hand Dredge Or Barge Relationship Specialty Start Date End Date Gagandeep Hinojosa MD PCP - General 05/17/[address] [place] [address] Vane Zarate Psychiatrist Psychiatry 03/22/12 [facility] Psychotherapist 08/04/17 [facility] Fresh Meat Grader 09/13/17 documented as of this encounter
--- OUTSIDE RECORDS SUMMARY | 2022-02-14 10:38 | XMS_ITS | Encounter Summary ---
:1970 Author Organization [facility]CompassPres[facility] HospitalPlayrc[facility] Address [address], [place] [address] Care Team Providers Name Role Phone Gagandeep Hinoojsa MD Primary Care Provider Encounter Details Date Type Department Care Team Description 08/18/2020 Orders Only Initial Department Provider, Magda, [facility] YADY JEFFRIES MD [place], [place] [address] Interface provider [phone] [place] [address] Social History Tobacco Use Types Packs/Day Years [...] on filedocumented in this encounter Care Teams Gambling Supervisor Relationship Specialty Start Date End Date Gagandeep Hinojosa MD PCP - General 05/17/12 [address] [place] [address] Vane Zarate Psychiatrist Psychiatry 03/22/12 [facility] Psychotherapist 08/04/17 [facility] Director Medical Writing 09/13/17 documented as of this encounter
--- OUTSIDE RECORDS SUMMARY | 2022-02-14 10:38 | XMS_ITS | Encounter Summary ---
:1970 Author Organization [facility] Hospital[facility] Address [address], [place] [address] Care Team Providers Name Role Phone Gagandeep Michaud MD Primary Care Provider Reason for Visit Reason Comments Refill Lisinopril and Metformin Encounter Details Date Type Department Care Team Description 09/02/2020 Refill [place] [facility] Gagandeep Michaud, Refil l (Lisinopril and Medicine Metformin) [address] [facility] . [address] [place] [address] [place] [address] [phone] (Wo rk) Social History Tobacco Use Types [...] through Jose Danielina as he moved to [place] now. Will request refills through new provider. No other requests. Interface, Out Surescripts Prov Query - 09/05/2020 5:10 AM CDT The patient chart could not be locked at 09/05/2020 5:10 AM by [employer] in order to process this refill request. Please try re-routing to attempt to retry processing through [employer]. Interface, Out Surescripts Prov Query - 09/05/2020 5:09 AM CDT The patient chart could not be locked at 09/05/2020 5:09 AM by [employer] in order to process this refill request. Please try re-routing to attempt to retry processing through [employer]. Abbie Mitchell RN - 09/05/2020 5:09 AM [...] K: 5 mEq/L on 11/28/2018 Powered by [employer] by [employer], Reference: [id number], 09/02/2020 1:16:41 PM CDT, Pool:MANUEL REFILL ([id number]) metFORMIN (GLUCOPHAGE) 1000 MG tablet [Pharmacy Med [...] HBA1C: 11.3 % on 12/04/2019 Powered by [employer] by [employer], Reference: [id number], 09/02/2020 1:16:41 PM CDT, Pool:MANUEL MOORE ([id number]) documented in this encounter Plan of Treatment Not on filedocumented as of this encounter Visit Diagnoses Not on filedocumented in this encounter Care Teams Tuckpointer Cleaner Caulker Relationship Specialty Start Date End Date Gagandeep Michaud MD PCP - General 05/17/[address] [place] [address] KATIANA Gerber [address] Vane Zarate Psychiatrist Psychiatry 03/22/12 [facility] Mental [facility] Psychotherapist 08/04/17 [facility] Manager Grant 09/13/17 documented as of this encounter
--- OUTSIDE RECORDS SUMMARY | 2022-02-14 10:38 | XMS_ITS | Encounter Summary ---
:1970 Author Organization [employer] Address [address] [address] Care Team Providers Name Role Phone Gagandeep Hinojosa MD Primary Care Provider Reason for Visit Reason Comments Patient Care Coordination Encounter Details Date Type Department Care Team Description 05/30/2020 Care Coord [place] [facility] Deborah Rodrigues Patient C are Office Visit Medicine A, [facility] Coordination [address] [place] [address] [place], [place] [phone] [address] Social History Tobacco Use Types Packs/Day Years [...] of this encounter Progress Notes Deborah Rodrigues [facility] - 05/30/2020 9:00 AM CST Care Coordination Visit Pt: Timur Krishnamurthy Reason for visit: Care Coordination Timur was seen alone. Discussion/actions: Met with Rustam for a scheduled care coordination appointment, as JOSETTE NIEVES is out of the clinic today. Completed his [facility] Assistance application and his [employer] application. I sent the FA application to the Tumbler Operator and mailed in the [employer] application,with the $45 application fee. JOSETTE NIEVES, Judy Pittman, informed. Rustam was very anxious throughout the appointment. He stood up and sat down a dozen times, saying things like, I'm not well, I don't know what to do. He had a very difficult time writing the check for $45, as he didn't know if it would clear. He declined wanting me to help and started crying when asked. Rustam declined going to the hospital, because they sent him home on Tuesday, they said it wouldbe worse in the hospital. Rustam did confirm that he was coming to his PCP appointment next week. Heis also working with his MH CM in the community, to move to an IRTS facility in [place]. Rustam deniedneeding anything else at this time and will call back if he something comes up. No thoughts of suicide right now. Patient received verbal instructions and written materials tailored to his or her preferred method of learning. Literacy level assessed (as appropriate). Interventions, including teach back, used to verify understanding. Patient Goal(s): 1. I want to be approved for [facility] and [employer]. Goal: in process 2. I want to move to an IRTS. Goal: in process SHARED PLAN: -PCP appointment 06/02 at 11:20. -RN Care Coordination appointment 06/12 at 11:00. Pt verbalized understanding and agreed with plan of care and follow up. CTION PROFESSIONAL documented in this encounter Plan of Treatment Not on filedocumented as of this encounter Visit Diagnoses Diagnosis Complex care coordination - Primary documented in this encounter Care Teams Clinic Business Manager Relationship Specialty Start Date End Date Gagandeep Hinojosa MD PCP - General 05/17/12 1415 [facility] [place] Gerber [address] Vane Zarate Psychiatrist Psychiatry 03/22/12 [facility] Mental [facility] Psychotherapist 08/04/17 [facility] CM Cosmetics Presser 09/13/17 documented as of this encounter
--- OUTSIDE RECORDS SUMMARY | 2022-02-14 10:38 | XMS_ITS | Encounter Summary ---
:1970 Author Organization [employer] Address [address] [place] [address] Care Team Providers Name Role Phone Gagandeep Hinojosa MD Primary Care Provider Reason for Visit Reason Comments Refill ONETOUCH DELICA lancets; blo od glucose (ONE TOUCH ULTRA BLUE) test strip; insulin regular (NOVOLIN R) 100 UNIT/ML injection Encounter Details Date Type Department Care Team Description 06/05/2020 Refill Gagandeep Storm, Refil l (ONETOUCH DELICA Medicine lancets; blood glucose [address] (ONE TOUCH ULTRA BLUE) KATIANA Velazquez [address] KATIANA VELAZQUEZ [address] test strip; insulin [phone] (Wo rk) regular (NOVOLIN R) 100 UNIT/ML [...] (Novolin R) And Insulin needles and syringes. ORIAL INTERN Marga Leyva - 06/06/2020 9:24 AM CST [...] controlled refills) Please route to: Triage Pool ORIAL INTERN Interface, Out Surescripts Prov Query - 06/05/2020 [...] scheduled visit: None Age: 50 Powered by [employer], Reference: [id number], 06/05/2020 10:10:24 AM Jaxon GRANGER: REINA REFILL WIZARD ADMIN ([id number]) blood glucose (ONE TOUCH ULTRA BLUE) test [...] scheduled visit: None Age: 50 Powered by [employer], Reference: [id number], 06/05/2020 10:10:24 AM Jaxon GRANGER: PN REFILL WIZARD ADMIN ([id number]) insulin regular (NOVOLIN R) 100 UNIT/ML injection [...] HBA1C: 11.3 % on 12/04/2019 Powered by [employer], Reference: [id number], 06/05/2020 10:10:24 AM EDITORIAL INTERN Pool: PN REFILL WIZARD ADMIN ([id number]) Herlinda Smith - 06/05/2020 10:07 AM CST [...] refills) Please route to: Refill Pool (P [id number]) [facility] FP Pool [place] Patients ONLY (P [id number]) SAMMI Laguerre ONLY (P [id number]) ORIAL INTERN documented in this encounter Plan of Treatment [...] insulin documented in this encounter Care Teams Hydroelectric Operator Relationship Specialty Start Date End Date Gagandeep Hinojosa MD PCP - General 05/17/12 1415 [facility] KAT[place] Gerber [address] Vane Zarate Psychiatrist Psychiatry 03/22/12 [facility] Mental Health Psychotherapist 08/04/17 [facility] Inspector 09/13/17 documented as of this encounter
--- OUTSIDE RECORDS SUMMARY | 2022-02-14 10:38 | XMS_ITS | Encounter Summary ---
:1970 Author Organization [facility] Address [address], [place] [address] Care Team Providers Name Role Phone Gagandeep Hinojosa MD Primary Care Provider Reason for Visit Reason Comments Patient Care Coordination Encounter Details Date Type Department Care Team Description 08/20/2020 Care Coord [facility] Deborah Rodrigues Patien t Care Phone Medicine CHIEF CHEMIST Coordination [facility] [place] [address] [place] [address] [phone] Social History Tobacco Use Types Packs/Day Years [...] Rodrigues LICSW - 08/20/2020 2:18 PM CDT Search Consultant - Phone Call Contact with: KARLEY Esaton CM Reason for call: Care Coordination Discussion/actions: Called Rustam to check in, and he stated he is doing ???okay and is at a [facility] in [place].Rustam said that he has been having a lot of anxiety, but is trying to get settled in down there. Rustam is establishing medical care in [place], but agreed to call if he needed anything. I talked with him about the free insulin that was shipped to the [facility], but he was unable to think about a solution on how to get the insulin. I told Rustam that he has a dermatology appointment next month, at the [facility], so he may be able to [...] he is going to make sure the m[facility] can transport him. Once Han confirms that [...] Primary documented in this encounter Care Teams Clinical Nurse Relationship Specialty Start Date End Date Gagandeep Hinojosa MD PCP - General 05/17/12 [address] [place] [address] Vane Zarate Psychiatrist Psychiatry 03/22/12 [facility] Mental Health Psychotherapist 08/04/17 [facility] Offset Press Operator Apprentice 09/13/17 documented as of this encounter
--- OUTSIDE RECORDS SUMMARY | 2022-02-14 10:38 | XMS_ITS | Encounter Summary ---
:1970 Author Organization [employer] Address [address], [place] [address] Care Team Providers Name Role Phone Gagandeep Hinojosa MD Primary Care Provider Reason for Referral (Routine) - Closed Specialty Diagnoses / Procedures Referred By Contact Refer red To Contact Diagnoses Other chest pain Kailash Green DO Procedures Outreach Nuclear Study [address] [place] [address] Referral ID Status Reason Start Date Expiration Date Visits Requ ested Visits Authorized [id number] Closed 06/19/2020 09/18/2021 1 1 MP BOAT CAPTAIN Encounter Details Date Type Department Care Team Description 06/19/2020 Hospital Encounter Heart & Vascular Other chest pain Center Nuclear (Primary Dx) Cardiology [address] [facility] [place] [address] Social History Tobacco Use Types Packs/Day Years [...] to scan blood 1 Each 0 020 Concrete Smoother (FREESTYLE sugars per TALAT 2 READER SYSTWireless Generation) timber bucker DEVIIndications: instructions. Uncontrolled type 2 diabetes mellitus [...] Notes Kim Guadarrama - 06/19/2020 12:00 PM SHRIMP BOAT CAPTAIN Encounter addended by: Kim Guadarrama on: 06/27/2020 7:07 AM Actions taken: Clinical Note Signed, Result filed MP BOAT CAPTAIN documented in this encounter Procedure Notes Kim Guadarrama - 06/19/2020 12:00 PM CSTAssociated Order(s): OUTREACH NUCLEAR STUDY Results NM CARDIAC MPI STRESS TEST ( (Order [id number]) STRESS TEST PHARMACOLOGICAL ( (Order [id number]) Original Order Diagnosis: Chest pain [R07.9 (ICD-10-CM)] Chest pain, normal EKG Chest pain, normal EKG Reading Provider(s) Sonia Jara MD PACs images are not viewable in [employer] Link. See text report below. STRESS TEST PHARMACOLOGICAL Order: [id number] Status: Final result Visible to patient: No (not released) Next appt: None Dx: Chest pain Linked study orders: NM CARDIAC MPI STRESS TEST (Order: [id number]) Details Reading Physician Reading Date Result Priority Sonia Jara MD [phone] 06/19/2020 Routine Narrative & Impression STUDY: LEXISCAN NUCLEAR STRESS TEST, 06/19/2020. ORDERING DIAGNOSIS: Chest pain. This is a rest/stress single-isotope, single-photon emission computed tomography imaging performed using pharmacologic stress with gated SPECT imaging performed for the evaluation of known coronary artery disease in a 50-year-old male with risk factors of tobacco use, hyperlipidemia, hypertension, anddiabetes with past history of LA and percutaneous intervention who now presents with [...] patient. Patient Information Patient Name Timur Krishnamurthy ([id number]) Sex Male MP BOAT CAPTAIN documented in this encounter Plan of Treatment Not on filedocumented as of this encounter Procedures Procedure Name Priority Date/Time Associated Diagnosis Comme nts OUTREACH NUCLEAR Routine 06/19/2020 12:00 PM Other chest pain Results for this STUDY SHRIMP BOAT CAPTAIN procedure are i n the results section. documented in this encounter Results Outreach Nuclear Study (06/19/2020 12:00 PM SHRIMP BOAT CAPTAIN) Narrative POCT - 06/19/2020 12:00 PM SHRIMP BOAT CAPTAIN Kim Guadarrama ? 06/27/2020 ??7:06 AM Results NM CARDIAC MPI STRESS TEST ( [id number]) (Order [id number]) STRESS TEST PHARMACOLOGICAL (Accession A [id number]) (Order [id number]) Original Order Diagnosis: Chest pain [R0 7.9 (ICD-10-CM)] Chest pain, normal EKG Chest pain, normal EKG Reading Provider(s) Sonia Jara MD PACs images are not viewable in [employer]. See text report below. STRESS TEST PHARMACOLOGICAL Order: [id number] Status: Final result Visible to patient: No (not released) Next appt: None Dx: Chest pain Linked study orders: NM CARDIAC MPI STRE SS TEST (Order: [id number]) Details Reading Physician Reading Date Result Pr willdeepak Sonia Jara MD [phone] 06/19/2020 Routine ?? Narrative & Impression ?? [...] nayana, and diabetes with past history of LA and percutaneous inte rvention who now presents [...] This result is not [facility]. Patient Information Patient Name Timur Krishnamurthy ([id number]) Sex Male Procedure Note July - 06/19/2020 12:00 PM CST Results NM CARDIAC MPI STRESS TEST ( [id number]) (Order [id number]) STRESS TEST PHARMACOLOGICAL (Accession A [id number]) (Order [id number]) Original Order Diagnosis: Chest pain [R0 7.9 (ICD-10-CM)] Chest pain, normal EKG Chest pain, normal EKG Reading Provider(s) Sonia Jara MD PACs images are not viewable in [employer]. See text report below. STRESS TEST PHARMACOLOGICAL Order: [id number] Status: Final result Visible to patient: No (not released) Next appt: None Dx: Chest pain Linked study orders: NM CARDIAC MPI STRE SS TEST (Order: [id number]) Details Reading Physician Reading Date Result Pr Sonia Gilbert MD [phone] 06/19/2020 Routine Narrative & Impression STUDY: LEXISCAN NUCLEAR STRESS TEST, . ORDERING DIAGNOSIS: Chest pain. This is a rest/stress single-isotope, si ngle-photon emission computed tomography imaging performed using pharmacologic stress with gated SPECT imaging performed for the evaluation of known coronary artery disease in a 50-year-old male with risk factors of to bacco use, hyperlipidemia, hypertension, and diabetes with past history of LA and percutaneous intervention who now presents with [...] the keke humphrey. Patient Information Patient Name Timru Krishnamurthy ([id number]) Sex Male Kailash Green DO PN CARDIAC SERVICES ORDERABL ES Performing Organization Address City/State/ZIP Code Phon e Number POCT documented in this encounter Visit Diagnoses Diagnosis Other chest pain - Primary documented in this encounter Care Teams Brooch Maker Novelty Relationship Specialty Start Date End Date Gagandeep Hinojosa MD PCP - General 05/17/[address] [facility] [place] [id number] Vane Zarate Psychiatrsamantha Psychiatry 03/22/12 [facility] Psychotherapist 08/04/17 [facility] Cloth Opener Hand 09/13/17 documented as of this encounter
--- OUTSIDE RECORDS SUMMARY | 2022-02-14 10:38 | XMS_ITS | Encounter Summary ---
:1970 Author Organization [employer] Address [address], [place] [address] Care Team Providers Name Role Phone Gagandeep Hinojosa MD Primary Care Provider Reason for Visit Reason Comments FOLLOW-UP,DIABETES Encounter Details Date Type Department Care Team Description 06/12/2020 Care Coord Office Judy Luke RN FOLLOW-UP,DIABETES Visit [address] [place] [address] [place] [phone] Social History Tobacco Use Types Packs/Day Years [...] Patient Instructions Patient InstructionsJudy Pittman RN - 06/12/2020 11:00 AM CST ?? Take Tresiba 32 units once daily in the evening ?? Take Novolin R 2 units per Carb choice (15 grams of Carb = 1 Carb choice) ?? Scan your blood sugar before all meals and before bed ?? The goal is to have all blood sugar readings between 80-180 ?? Reji's direct phone number is [phone], after July 03 INE PIE MAKER documented in this encounter Progress Notes Judy Pittman RN - 06/12/2020 11:00 AM CST RN Horticulture Worker Visit Pt: Timur Mendozaathers Referred by: Gagandeep Hinojosa MD Reason for referral: Diabetes type 2 uncontrolled Most recent vitals signs: Wt Readings from Last 3 Encounters: 06/09/20 196 lb (88.9 kg) 03/17/20 195 lb (88.5 kg) 01/22/20 201 lb 9.6 oz (91.4 kg) BP Readings from Last 3 Encounters: 06/09/20 132/88 03/17/20 123/77 01/22/20 124/82 Most recent lab results: HGB A1C (%) [...] degludec U-200) 32 units daily in PM Novolin R 2 units per CHO choice BID (average 5-10 units) Aspirin: Yes - 81 mg daily Glucose meter: FreeStyle Bharath CURRENT GLUCOSE PATTERNS: from memory Fastin - 150, 200 Before dinner: low 200s Before bed: below 200 Hypoglycemia (previous two weeks): none ASSESSMENT: Rustam is here today for assistance with his DM management. [facility] and had a hard time sitting still during our appt, pacing with anxiety. Of note, Rustam canceled our visit earlier stating he wasn't feeling well, but then changed his mind and decidedto come in any way. Insurance Rustam recently applied for [employer], but submitted a list of bank transactions vs an actualstatement from his bank. Arina at [employer] states she cannot process his application without a current bank statement, so Rustam brought one in today. Rustam is concerned his check for the $45application fee won't clear, unless it is cashed after 06/25/20 when he receives his next Social Security check. Arina agrees to hold onto the check and wait until 06/25/20 to villegas it. I stressed to Rustam that [employer] is not insurance, but it will help him to stop accruing medical costs at [facility], once he is approved. Rustam will need to reapply annually, unless of course, he gets MA in the future. In the meantime, Rustam also applied for [facility] Financial Assistance. I emailed a scanned copyof Rustam's bank statement to Reina Marsh, Datap[employer] Developer. Housing Rustam states his current anxiety revolves around his living situation, a room he rented on [employer] [address]. He was told he has to move out by 06/26/20. Rustam has been working with his Special Education Tutor, Han Arshad, who helped him apply for an IRTS in [place] where he could stay for up to 30-90 days, but he hasn't heard if he has been approved. Because his housing isn't stable at this time, I requested to have Arina and Reina mail any correspondence/cards to Lesly Rodrigues, [facility] Horticulture Worker at [facility], so it doesn't get lost and she can pass it on to Rustam. Medication Rustam was recently sent to a Crisis Center in [place] where they provided a supply of Tresiba and Regular insulin, so he states he does not need any insulin at this time. Rustam reports he is doing his best to take better care of himself, taking his insulin more consistently than before (only missing 1-2 Regular insulin doses per week). I reviewed how Rustam is taking his insulin. He states he doesn't feel confident about counting CHO anymore, but he does know which foods contain CHO and which foods do not contain CHO. I empathized with Rustam and noted that if he plans to eat, he needs some insulin to cover the CHO. Therefore, we will go by the size of the meal instead. Rustam has been taking the same insulin doses for a long time, so I recommended if the meal is small and contains CHO, he should take Regular 5 units. If the meal is large and contains CHO, he should take closer to 8-10 units. I highlighted that he does not take any Regular insulin at lunchtime, even if he eats, as there needs to be 6-8 hours between doses of Regular insulin. Rustam was recently approved for [employer] PAP with Tresiba and Novolog insulin. Historically, Rustamhas run out of insulin due to cost, typically in the fall when he reaches the Medicare Coverage Gap.Therefore, I do not want to waste an opportunity to get Rustam some free insulin. Also, Novolog will be a much better insulin for Rustam vs Regular insulin because it will be in a pen vs vial (Rustam struggles with using a vial and syringe secondary to his hand tremors). Again, due to Rustam's unstable housing, I requested to have Jeysons insulin shipped directly to [facility] where we can hold onto it for him until he has a stable place to stay. Blood Glucose Rustam is using a Webydo.yle Bharath CGM. He receives his supplies and assistance from [employer]. Rustam did not bring his reader today and does not have access to a computer to utilize [employer]. He receives help with applying his sensors due to his significant hand tremors. I reminded Rustam that he will need to request a refill of his sensors from [facility] when has a one months' supply left. Again, I will call and try to switch the delivery address to the clinic because of his unstable housing. County Services I explained to Rustam that he really needs additional support, he agreed. Ideally, Rustam needs a CADIWaiver that will help with housing, nursing, ILS, ARMHS, etc. However, the first step is getting MA for Rustam, which he states Han is currently working on. Because of his SSDI, he will need to have a spend- down. Rustam provided the contact information for his Special Education Tutor and requested I call him directly to make sure we are all on the same page. I left a detailed message for Han and requested a return call to discuss Rustam's needs: Priorities - 1. Stable housing 2. Medical Assistance 3. [place] Choices Assessment for [place] W[place] benefits and services Follow up Rustam was too anxious to stay long and stated he needed to leave to gather more paperwork for his Special Education Tutor. I will notify Rustam when his insulin arrives and schedule a follow up visit. Family/social support: Patient attended today's visit alone. He currently lives alone. Current activity regimen: none Patient barrier(s) to learning identified: Finance, Emotional, Cognitive and Family support. BG Goals: Health Long Term Lab Goal <7 Pre-meal: 70-130 mg/dL PPG: <180 mg/dL Bedtime: 90-150 mg/dL A1c: <7.0% Recommended testing frequency: Before each meal, 2 hours after meal, and occasional hs. Education content covered today: Hypoglycemia Hyperglycemia BG Monitoring Goeff received verbal instructions and written materials tailored to his or her preferred method of learning. Literacy level assessed (as appropriate). Interventions, including teach back, used to verify understanding. SHARED PLAN: Continue current insulin regimen. Cover breakfast and dinner meals with some Regular insulin. Scan BG readings, as directed. Changed mailing address to clinic address for [employer], [employer], [employer], and [facility]. Requested refill of Bharath Sensors that are due in 06/3020. Left detailed message for MG Jasper Special Education Tutor regarding Rustam's current needs. Will notify Rustam when [employer] insulin supply arrives. Rustam to call if symptoms of hypoglycemia or readings < 70 mg/dL. Rustam verbalized understanding and agreed with plan of care and follow up. INE PIE MAKER Judy Pittman RN - 06/12/2020 11:00 AM CST Tresiba U200, Novolog, and Novofine needles received from [facility] [facility]. Medication entered into [facility] and verified by Dr Hinojosa. Notified Rustam the medication is being store in the Injection Room refrigerator. Scheduled follow up on 06/25/20. INE PIE MAKER Judy Pittman RN - 06/12/2020 11:00 AM CST Han Arshad is returning my call. He states he was successful in getting Rustam MA starting yesterday, but notes he has a $900/month spend-down. Han also reports he was notified by Julian, Director of the IRTS Program in [place], that they are not going to accept Rustam into their program because they: 1. Do not take Medicare 2. Do not work with spend-downs 3. Feels Rustam's only issue is housing at the time, which not appropriate for IRTS Han is very frustrated by the decision and is scrambling to find Rustam the mental health support heneeds, in addition to stable housing. Both the [place] and [place] IRTS facilities have wait lists for 2-4 weeks. [facility] does have an immediate opening, however Rustam may not be able to afford the cost with only his SSI and MA. INE PIE MAKER documented in this encounter Plan of Treatment Not on filedocumented as of this encounter Visit Diagnoses Diagnosis Uncontrolled type 2 diabetes mellitus wi th hyperglycemia (HRC) - Primary documented in this encounter Care Teams Hydraulic Specialist Relationship Specialty Start Date End Date Gagandeep Hinojosa MD PCP - General 05/17/12 [facility] [place] [address] Vane Zarate Psychiatrist Psychiatry 03/22/12 [facility] Mental Health Psychotherapist 08/04/17 [facility] Special Education Tutor 09/13/17 documented as of this encounter
--- OUTSIDE RECORDS SUMMARY | 2022-02-14 10:38 | XMS_ITS | Encounter Summary ---
:1970 Author Organization [employer] Address [address] [address] Care Team Providers Name Role Phone Gagandeep Hinojosa MD Primary Care Provider Reason for Visit Reason Comments COVID Test Results Encounter Details Date Type Department Care Team Description 04/14/2020 Telephone [facility] Gagandeep Hinojosa, [place] VID Test Results Medicine [address] [place], [place] [address] [place] [address] [phone] (Wo rk) Social History Tobacco Use Types [...] documented as of this encounter Nursing Notes Mikaela Saldivar RN - 04/14/2020 12:15 PM CST Patient was notified that COVID-19 testing was negative. Patient does not have symptoms. Patient was given and able to verbalize home isolation instructions for patients that have tested negative for COVID and do not have symptoms. If you know you were exposed to someone with COVID 19, you should stay home and quarantine for 14 days from your last close contact and monitor for symptoms because you could still become sick. ??? Average symptom onset is 5-7 days after exposure, but can occur anytime between 2-14 days. ??? If 14 days have passed after your exposure/event and you still have not developed symptoms, you can discontinue quarantine and would not need additional testing. ??? If you develop symptoms call your PCP or complete a visit at [facility]. ??? If you develop shortness of breath or difficulties breathing, you should seek prompt medical attention. ??? Before returning to work, you must contact your employer for return to work instructions. ??? Your best protection from COVID-19 and the best way to stop the spread of illness continues to be: practice good hygiene like hand washing often, cover coughs and sneezes, clean and disinfect frequently touched surfaces, and social distancing. ??? If any or your family members have been on home quarantine, awaiting your result, they can stop their quarantine at this time if they have not developed symptoms. Does patient have any questions? No If the patient needs documentation of their results, a printout is available on [employer] or a letter has been sent via mail (if inactive on [employer]). Mikaela Saldivar RN 04/14/2020, 12:16 PM RIUM TANK ATTENDANT documented in this encounter Plan of Treatment Not on filedocumented as of this encounter Visit Diagnoses Not on filedocumented in this encounter Care Teams General Road Foreman Relationship Specialty Start Date End Date Gagandeep Hinojosa MD PCP - General 05/17/[address] [place], [place] [address] [address] Vane Zarate Psychiatrsamantha Psychiatry 03/22/12 [facility] Health Psychotherapist 08/04/17 [facility] Log Data Technician 09/13/17 documented as of this encounter
--- OUTSIDE RECORDS SUMMARY | 2022-02-14 10:38 | XMS_ITS | Encounter Summary ---
:1970 Author Organization [facility] Address [address] [address] Care Team Providers Name Role Phone Gagandeep Michaud MD Primary Care Provider Reason for Visit Reason Comments Refill Aspirin and Depakote Encounter Details Date Type Department Care Team Description 09/02/2020 Refill [facility] Gagandeep Michaud, Refil l (Aspirin and Medicine MD Shearer) [address] [facility] . [address] [place] [address] [place], [place] [id number] (Wo rk) Social History Tobacco Use Types [...] Notes Jose M Plaza RN - 09/05/2020 8:40 AM CDT Spoke with pt. States already with a different provider through [place] as he moved to [place] now. Will request refills through new provider. No other requests. Abbie Mitchell RN - 09/05/2020 5:13 AM CDT Further Assistance Needed on Refill from Nursing/Triage Depakote listed as historical. Aspirin last ordered in 2011. Please see other refill encounters requiring triage. Next steps: Nursing/Triage to complete refill as appropriate. Requested Prescriptions Pending Prescriptions Disp Refills ??? ASPIRIN LOW DOSE 81 MG enteric coated tablet [Pharmacy Med Name: Aspirin Low Dose 81 MG Tablet delayed release] 90 Each 3 Sig: TAKE 1 TABLET BY MOUTH DAILY WITH A MEAL ??? divalproex (DEPAKOTE) [address] tablet [Pharmacy Med Name: Divalproex Sodium 500 MG Tablet delayed release] 360 Tablet 0 Sig: *HAZARDOUS DRUG* TAKE 2 TABLETS BY MOUTH TWICE DAILY Interface, Out Surescripts Prov Query - 09/02/2020 1:13 PM CDT ASPIRIN LOW DOSE 81 MG enteric coated tablet [Pharmacy Med Name: Aspirin Low Dose 81 MG Tablet delayed release] -> The medication cannot be found in the patient's medication history. -> Refill x 12 months, qty: 90, refills: 3 (until due for an office visit) Last qualifying visit: 06/09/2020 (with GAGANDEEP MICHAUD) Next scheduled visit: None Powered by [facility] by [employer], Reference: [id number], 09/02/2020 1:13:39 PM CDT, Pool:MANUEL LANDAILL ([id number]) divalproex (DEPAKOTE) [address] tablet [Pharmacy Med Name: Divalproex Sodium 500 MG Tablet delayed release] Medication started: 04/02/2016 Last ordered by UNKNOWN, PHYSICIAN: 06/09/2016 (1546 days ago as Historical on 06/09/2016 by LULI JUSTIN), Sig: take 3,000 mg by mouth. (changed) -> The requested strength (500 mg delayed release oral tablet) was last ordered on 06/09/2016. The patient is taking 250 mg delayed release oral tablet as of 12/18/2018. -> The requested strength (500 mg delayed release oral tablet) was last ordered on 06/09/2016. The patient is taking 500 mg extended release oral tablet as of 05/09/2020. -> This medication was discontinued on 05/17/2017 by SERGE RANKIN -> Unable to determine if sig has changed, review required. -> A qualifying visit was not found within the last 2 years. -> ALT and Valproic Acid (serum) are overdue (performed 41 months ago, required every 12 months) -> HCT, HGB, PLT, and WBC are overdue (performed over 21 months ago, required every 12 months) -> Valproic Acid (serum) was found, but the result could not be read. Last qualifying visit: None (A recent visit (in Family Practice with GAGANDEEP MICHAUD) was found) Next scheduled visit: None ALT: 17 U/L on 04/29/2017 HCT: 40.2 % on 11/28/2018 HGB: 14.7 g/dL on 11/28/2018 PLT: 253 k/cmm on 11/28/2018 Valproic Acid (serum): Taken on 04/29/2017 WBC: 8.4 k/cmm on 11/28/2018 Powered by [employer] by [employer], Reference: [id number], 09/02/2020 1:13:39 PM CDT, Pool:MANUEL MOORE ([id number]) documented in this encounter Plan of Treatment Not on filedocumented as of this encounter Visit Diagnoses Not on filedocumented in this encounter Care Teams Nailhead Setter Relationship Specialty Start Date End Date Gagandeep Michaud MD PCP - General 05/17/12 [facility] [address] Vane Zarate Psychiatrist Psychiatry 03/22/12 [facility] Mental Health Psychotherapist 08/04/17 [facility] Signal Timer 09/13/17 documented as of this encounter
--- OUTSIDE RECORDS SUMMARY | 2022-02-14 10:38 | XMS_ITS | Encounter Summary ---
:1970 Author Organization Replaced by [facility] Address [address] [place] [address] Care Team Providers Name Role Phone Gagandeep Hinojosa MD Primary Care Provider Reason for Visit Reason Comments FYI Encounter Details Date Type Department Care Team Description 09/19/2020 Telephone [facility] Gagandeep Hinojosa MD FYI [address] [facility] . [address] [place] [address] [place] [id number] (Wo rk) Social History Tobacco Use Types [...] documented as of this encounter Nursing Notes Ed Galicia RN - 09/19/2020 8:47 AM CDT Noted. Desiree Nunn - 09/19/2020 8:38 AM CDT Miscellaneous Questions & FYI's - FYI (DO NOT use for billing and coding concerns see BEST care reporting system) What is your comment or FYI? Pt calling to advise PCP that he is temporarily relocating and so there won't be much contact or appts between he and PCP. States that PCP can correspond with [facility] and he sees Dr. Zhane Stanley. If there are questions regarding your request, [...] on filedocumented in this encounter Care Teams Loader Operator/Ground Leader Relationship Specialty Start Date End Date Gagandeep Hinojosa MD PCP - General 05/17/12 [address] [place] [address] Vane Zarate Psychiatrist Psychiatry 03/22/12 [facility] Psychotherapist 08/04/17 [facility] Cap Maker 09/13/17 documented as of this encounter
--- OUTSIDE RECORDS SUMMARY | 2022-02-14 10:38 | XMS_ITS | Encounter Summary ---
:1970 Author Organization [employer] Address [address] [place] [address] Care Team Providers Name Role Phone Gagandeep Michaud MD Primary Care Provider Reason for Visit Reason Onset Date Comments Refill 07/09/2020 insulin aspart (YOEL LOG) 100 UNIT/ML pen injection Encounter Details Date Type Department Care Team Description 07/09/2020 Refill Gagandeep Storm, Rochelle l (insulin aspart Medicine (NOVOLOG) 100 UNIT/ML [address] pen injection) [place] [address] [place] [id number] (Wo rk) Social History Tobacco Use Types [...] last 12 months and Please advise if custodial supply is appropriate Last qualifying visit: 06/09/2020 [...] HBA1C: 11.3 % on 12/04/2019 Powered by [employer], Reference: [id number], 07/09/2020 11:39:43 AM CDT, Pool: PN REFILL WIZARD ADMIN ([id number]) Sruthi Ledesma - 07/09/2020 11:39 AM CDT [...] refills) Please route to: Refill Pool (P [id number]) [place] FP Pool [place] Patients ONLY (P [id number]) [facility] PEDSS Dr. Laguerre ONLY (P [id number]) documented in this encounter Plan of Treatment Not on filedocumented as of this encounter Visit Diagnoses Diagnosis Uncontrolled type 2 diabetes mellitus wi th hyperglycemia (HRC) documented in this encounter Care Teams Splicer Machine Operator Relationship Specialty Start Date End Date Gagandeep Michaud MD PCP - General 05/17/12 [address] [facility] [place] [address] Vane Zarate Psychiatrist Psychiatry 03/22/12 [facility] Psychotherapist 08/04/17 [facility] Hacksaw Inspector 09/13/17 documented as of this encounter
--- OUTSIDE RECORDS SUMMARY | 2022-02-14 10:38 | XMS_ITS | Encounter Summary ---
:1970 Author Organization [employer] Address [address] [place] [address] Care Team Providers Name Role Phone Gagandeep Michaud MD Primary Care Provider Reason for Visit Reason Comments Refill risperiDONE (RISPERDAL) 3 MG tablet [Pharmacy Med Name: RISPERIDONE 3MG TABS] Encounter Details Date Type Department Care Team Description 05/08/2020 Refill Gagandeep Storm, Refrose mary l (risperiDONE Medicine MD (RISPERDAL) 3 MG tablet [address] [Pharmacy Med Name: [place] [address] [place] [address] RISPERIDONE 3MG TABS]) [phone] (Wo rk) Social History Tobacco Use Types [...] found) Next scheduled visit: None Powered by [employer], Reference: [id number], 05/08/2020 12:39:25 PM PANEL INSTRUMENT REPAIRER, Pool: MANUEL MOORE ([id number]) L INSTRUMENT REPAIRER documented in this encounter Plan of Treatment Not on filedocumented as of this encounter Visit Diagnoses Not on filedocumented in this encounter Care Teams Gaming Cashier Relationship Specialty Start Date End Date Gagandeep Michaud MD PCP - General 05/17/[address] [place] [address] [place] [address] Vane Zarate Psychiatrist Psychiatry 03/22/12 [facility] Psychotherapist 08/04/17 [facility] Legal Biller 09/13/17 documented as of this encounter
--- OUTSIDE RECORDS SUMMARY | 2022-02-14 10:38 | XMS_ITS | Encounter Summary ---
:1970 Author Organization [employer] Address [address] [place] [address] Care Team Providers Name Role Phone Gagandeep Hinojosa MD Primary Care Provider Reason for Visit Reason Comments Patient Care Coordination Encounter Details Date Type Department Care Team Description 06/30/2020 Care Coord Judy Luke RN Patient Care Phone Medicine [address] [facility] Coordination [address] [place] [address] [phone] Social History Tobacco Use Types Packs/Day Years [...] encounter Nursing Notes Judy Pittman RN - 06/30/2020 5:07 PM CST I received a detailed message from Rustam. He states he is doing much better with his mental health. Rustam reports he has been at [facility] and plans to transfer to an IR facility in [place] tomorrow. He does not know where he will find housing after that time. - Rustam was approved for [employer] PAP and has a 3 month supply of Tresiba, Novolog, and insulin pen needles in the refrigerator for whenever he is discharged to stable housing. He will require eduction on how to transition from Relion Regular to Novolog insulin. RIAL DISTRIBUTOR documented in this encounter Plan of Treatment Not on filedocumented as of this encounter Visit Diagnoses Not on filedocumented in this encounter Care Teams Square Shear Operator Relationship Specialty Start Date End Date Gagandeep Hinojosa MD PCP - General 05/17/[address] [place], [place] [address] [address] Vane Zarate Psychiatrist Psychiatry 03/22/12 [facility] Mental Health Psychotherapist 08/04/17 [facility] Automatic Edger 09/13/17 documented as of this encounter
--- OUTSIDE RECORDS SUMMARY | 2022-02-14 10:38 | XMS_ITS | Encounter Summary ---
:1970 Author Organization [facility] mobile marketingE[facility] CenterSc[facility] Address [address], [place] [address] Care Team Providers Name Role Phone Gagandeep Hinojosa MD Primary Care Provider Reason for Visit Reason Comments Patient Care Coordination Encounter Details Date Type Department Care Team Description 05/05/2021 Care Coord [facility] Deborah Rodrigues Patien t Care Phone Medicine MANAGER BENCH Coordination [facility] [place] [address] [place] [address] [phone] Social History Tobacco Use Types Packs/Day Years [...] LICSW - 05/05/2021 1:25 PM CST Health Custodial, Active Care Coordination resolved in patient???s Problem List. Reason: Patient moved out of the area Patient may be referred again in the future if needed. RY SCREEN PRINTING MACHINE OPERATOR documented in this encounter Plan of Treatment Not on filedocumented as of this encounter Visit Diagnoses Diagnosis Health intermediate, active care coordinati on - Primary documented in this encounter Care Teams Systems Technician Relationship Specialty Start Date End Date Gagandeep Hinojosa MD PCP - General 05/17/12 2795 [facility] [place] Gerber [address] V[address] Zarate Psychiatrist Psychiatry 03/22/12 [facility] Mental [facility] Psychotherapist 08/04/17 [facility] Commercial Superintendent 09/13/17 documented as of this encounter
--- OUTSIDE RECORDS SUMMARY | 2022-02-14 10:38 | XMS_ITS | Encounter Summary ---
:1970 Author Organization [facility] Address [address] [place] [address] Care Team Providers Name Role Phone Gagandeep [...] Medicine MD succinate (TOPROL XL) [address] MG 24 hour release KAT[place] Vigil [address] [place] VIGIL [address] tablet [Pharmacy Med [phone] (Wo rk) Name: Metoprolol Succinate ER 50 [...] visit Patient no longer receiving care at [facility]; pt stated switched providers due to living in [place] now. Frontline: Route to Refill Wizard Admin Pool-PN (P [id number]) Shayy Haynes RN - 08/27/2021 2:22 PM CDT Further Assistance Needed on Refill from Director Customer Patient is overdue for Office visit. An [...] MICHAUD) Next scheduled visit: None Powered by GAMEVILfinch by LaFourchette, Reference: [id number], 08/25/2021 9:39:07 AM CDT, Pool:MANUEL LANDACHIP ([id number]) documented in this encounter Plan of Treatment Not on filedocumented as of this encounter Visit Diagnoses Diagnosis Essential hypertension (HRC) Unspecified essential hypertension documented in this encounter Care Teams Bow Tacker Relationship Specialty Start Date End Date Gagandeep Michaud MD PCP - General 05/17/12 1415 [facility] [address] V[address] Zarate Psychiatrist Psychiatry 03/22/12 [facility] Psychotherapist 08/04/17 [facility] Financial Management 09/13/17 documented as of this encounter
--- OUTSIDE RECORDS SUMMARY | 2022-02-14 10:38 | XMS_ITS | Encounter Summary ---
:1970 Author Organization [employer] Address [address], [place] [address] Care Team Providers Name Role Phone Gagandeep Hinojosa MD Primary Care Provider Reason for Visit Reason Comments CANCEL APPOINTMENT Encounter Details Date Type Department Care Team Description 06/12/2020 Care Coord Phone Judy Luke R N CANCEL APPOINTMENT [facility] [address] [place] [address] [place] [address] [phone] Social History Tobacco Use Types Packs/Day Years [...] Pittman RN - 06/12/2020 9:38 AM CST Autocutter - Phone Call Contact with: Rustam Reason [...] Rustam is working with his Mental Health Shank Inspector to find new housing. Rustam states he has not received his shipment from [facility], but notes he does not need any insulin at this time. He was given a significant supply of insulin following his recent stay at the crisis center. Shared plan: Canceled appt for today and will reschedule at a later date. Rustam verbalized understanding and agreed with plan of care and follow up. R SAFETY TEACHER documented in this encounter Plan of Treatment Not on filedocumented as of this encounter Visit Diagnoses Not on filedocumented in this encounter Care Teams Business Consult Relationship Specialty Start Date End Date Gagandeep Hinojosa MD PCP - General 05/17/[address] [place] [address] [place] VIGIL [address] Vane Zarate Psychiatrist Psychiatry 03/22/12 [facility] Mental Health Psychotherapist 08/04/17 [facility] Shank Inspector 09/13/17 documented as of this encounter
--- OUTSIDE RECORDS SUMMARY | 2022-02-14 10:38 | XMS_ITS | Encounter Summary ---
:1970 Author Organization [employer] Address [address] [address] Care Team Providers Name Role Phone Gagandeep Hinojosa MD Primary Care Provider Reason for Visit Reason Comments Patient Care Coordination Encounter Details Date Type Department Care Team Description 07/17/2020 Care Coord [facility] Deborah Rodrigues Patien t Care Phone Medicine STAVE AND BOLT EQUALIZER Coordination [facility] [place] [address] [place] [address] [phone] Social History Tobacco Use Types Packs/Day Years [...] Rodrigues LICSW - 07/17/2020 9:31 AM CDT Dairy Processing Equipment Operator - Phone Call Contact with: KARLEY Easton CM, Dave Reason for call: Care Coordination Discussion/actions: Spoke with Rustam regarding his insulin supplies. We will get him supplies when he is moved into stable housing. Rustam said that he will be moving to [facility] in [place] and is on top of the world [...] of this encounter Visit Diagnoses Diagnosis Health half-way, active care coordinati on - Primary documented in this encounter Care Teams Record Systems Analyst Relationship Specialty Start Date End Date Gagandeep Hinojosa MD PCP - General 05/17/12 1415 [place] [address] Vane Zarate Psychiatrist Psychiatry 03/22/12 [facility] Mental Health Psychotherapist 08/04/17 [facility] CM Strapper Operator 09/13/17 documented as of this encounter
--- OUTSIDE RECORDS SUMMARY | 2022-02-14 10:38 | XMS_ITS | Encounter Summary ---
:1970 Author Organization [facility] Address [address], [place] [address] Care Team Providers Name Role Phone Gagandeep Hinojosa MD Primary Care Provider Reason for Visit Reason Comments Patient Care Coordination Encounter Details Date Type Department Care Team Description 09/02/2020 Care Coord [facility] Deborah Rodrigues Patien t Care Phone Medicine CORE DRILL OPERATOR Coordination [facility] [place] [address] [place] [address] [phone] Social History Tobacco Use Types Packs/Day Years [...] would not be coming up to the [facility] anytime soon, and that things in [place] are going well. Rustam denied any immediate concerns. Called Rustam back and left him a message, will wait to hear back from him. documented in this encounter Plan of Treatment Not on filedocumented as of this encounter Visit Diagnoses Diagnosis Health detention, active care coordinati on - Primary documented in this encounter Care Teams Operational Risk Analyst Relationship Specialty Start Date End Date Gagandeep Hinojosa MD PCP - General 05/17/[address] [place] [address] [place]QUEZ [address] V[address] Zarate Psychiatrist Psychiatry 03/22/12 [facility] Mental Health Psychotherapist 08/04/17 [facility] Driver Medic 09/13/17 documented as of this encounter
--- OUTSIDE RECORDS SUMMARY | 2022-02-14 10:38 | XMS_ITS | Encounter Summary ---
:1970 Author Organization [employer] Address [address] [place] [address] Care Team Providers Name Role Phone Gagandeep Michaud MD Primary Care Provider Reason for Visit Reason Comments Refill Crestor Encounter Details Date Type Department Care Team Description 09/02/2020 Refill [facility] Gagandeep Michaud MD Refill (Crestor) 1415 [facility] . [address] [place] [address] [place], [place] [address] (Wo rk) Social History Tobacco Use Types [...] Notes Jose M Plaza RN - 09/05/2020 8:44 AM CDT Spoke with pt. States already with a different provider through [place] as he moved to [place] now. Will request refills through new provider. No other requests. Abbie Mitchell RN - 09/05/2020 4:57 AM CDT Further Assistance Needed on Refill from Nursing/Triage Medication is not listed in patient's medication history. Active med list shows order for atorvastatin. Please see other refill encounters requiring triage. Next steps: Nursing/Triage to complete refill as appropriate. Requested Prescriptions Pending Prescriptions Disp Refills ??? rosuvastatin (CRESTOR) 20 MG tablet [Pharmacy Med Name: Rosuvastatin Calcium 20 MG Tablet] 90 Tablet 3 Sig: TAKE 1 TABLET BY MOUTH EVERY NIGHT AT BEDTIME Jose M Plaza RN - 09/03/2020 12:43 PM CDT Routing to refill Pool Interface, Out Surescripts Prov Query - 09/02/2020 1:18 PM CDT rosuvastatin (CRESTOR) 20 MG tablet [Pharmacy Med Name: Rosuvastatin Calcium 20 MG Tablet] -> The medication cannot be found in the patient's medication history. -> Refill x 12 months, qty: 90, refills: 3 (until due for an office visit) Last qualifying visit: 06/09/2020 (with GAGANDEEP MICHAUD) Next scheduled visit: None Powered by [email or web address] by Storypanda, Reference: [id number], 09/02/2020 1:18:44 PM CDT, Pool:MANUEL REFILL ([id number]) documented in this encounter Plan of Treatment Not on filedocumented as of this encounter Visit Diagnoses Not on filedocumented in this encounter Care Teams Police Specialist Relationship Specialty Start Date End Date Gagandeep Michaud MD PCP - General 05/17/12 1415 [facility] [place] Gerber [address] Vane Zarate Psychiatrist Psychiatry 03/22/12 [facility] Mental Health Psychotherapist 08/04/17 [facility] Office Service Coordinator 09/13/17 documented as of this encounter
--- OUTSIDE RECORDS SUMMARY | 2022-02-14 10:38 | XMS_ITS | Encounter Summary ---
:1970 Author Organization [employer] Address [address] [place] [address] Care Team Providers Name Role Phone Gagandeep Michaud MD Primary Care Provider Reason for Visit Reason Comments Refill Insulin Syringe-Needle U-100 (INSULIN SYRINGE 31G X 5/16) 31G X 5/16 1 ML Encounter Details Date Type Department Care Team Description 06/05/2020 Refill [facility] Gagandeep Michaud, Refil l (Insulin Medicine Syringe-Needle U-[address] (INSULIN [place]YRINGE [address] [place] [address] [place] [address] 5/16) 31G X 5/16 1 ML) [phone] (Wo rk) Social History Tobacco Use Types [...] prescriptions requested or ordered in this encounter Interface, Out FirmPlay Prov Query - 06/05/2020 10:10 AM CST [...] found) Next scheduled visit: None Powered by [email or web address], Reference: [id number], 06/05/2020 10:10:25 AM ELKIN Pool: PN REFILL WIZARD ADMIN ([id number]) Herlinda Springer - 06/05/2020 10:10 AM CST [...] refills) Please route to: Refill Pool (P [id number]) [facility] FP Pool [place] Patients ONLY (P [id number]) [facility] PEDSS Dr. Laguerre ONLY (P [id number]) documented in this encounter Plan of Treatment Not on filedocumented as of this encounter Visit Diagnoses Not on filedocumented in this encounter Care Teams Scoreboard Operator Relationship Specialty Start Date End Date Gagandeep Michaud MD PCP - General 05/17/12 [facility] [place] [address] Vane Zarate Psychiatrist Psychiatry 03/22/12 [facility] Psychotherapist 08/04/17 [facility] Geophysical Prospecting Surveyor 09/13/17 documented as of this encounter
--- OUTSIDE RECORDS SUMMARY | 2022-02-14 10:38 | XMS_ITS | Encounter Summary ---
:1970 Author Organization [facility] Address [address] [place] [address] Care Team Providers Name Role Phone Gagandeep Michaud MD Primary Care Provider Reason for Visit Reason Comments Refill metFORMIN (GLUCOPHAGE) 1000 MG tablet [Pharmacy Med Name: metFORMIN HCl 1000 MG Tablet]; lisinopril (ZEST RIL) 5 MG tablet [Pharmacy Med Name: Lisinopril 5 MG Tablet] Encounter Details Date Type Department Care Team Description 09/02/2020 Refill [place] [facility] Gagandeep Michaud, Refil l (metFORMIN Medicine MD (GLUCOPHAGE) [address] tablet [[place] [address] [place] [address] Name: metFORMIN HCl 1000 [phone] (Wo rk) MG Tablet]; lisinopril (ZESTRIL) 5 [...] ENCOUNTER Routing to refill Pool Interface, Out [employer] Prov Query - 09/03/2020 12:43 PM CDT [...] MICHAUD) Next scheduled visit: None Powered by dotSyntax by Turbine, Reference: [id number], 09/03/2020 12:43:21 PM CDT, Pool: PN REFILL WIZARD ADMIN ([id number]) documented in this encounter Plan of Treatment Not on filedocumented as of this encounter Visit Diagnoses Not on filedocumented in this encounter Care Teams Portable Sawmill Operator Relationship Specialty Start Date End Date Gagandeep Michaud MD PCP - General 05/17/12 1415 [facility] Marlena GODOYSTONY RIVERKATIANA [address] Vane Zarate Psychiatrist Psychiatry 03/22/12 [facility] Health Psychotherapist 08/04/17 [facility] Gardener 09/13/17 documented as of this encounter
--- OUTSIDE RECORDS SUMMARY | 2022-02-14 10:38 | XMS_ITS | Encounter Summary ---
:1970 Author Organization [facility] Address [address] [place] [address] Care Team Providers Name Role Phone Gagandeep Hinojosa MD Primary Care Provider Encounter Details Date Type Department Care Team Description 04/10/2020 Notes/Orders [facility] MasonkeeAlhaji Co ntact with james Belcher MD exposure to viral [address] [place] [address] [phone] Social History Tobacco Use Types Packs/Day Years [...] 2019 Novel Coronavirus (COVID-19) (04/10/2020 10:29 AM ANILINE PRESS WORKER) [facility] Method Time Signature SARS-CoV-2 by Not Detected 04/11/2020 [facility] PCR 11:15 PM ANILINE PRESS WORKER LABORATORIES Comment: INTERPRETIVE INFORMATION: SARS-CoV-2 (CO VID-19) [...] complia nce with this authorization, please visit [email or web address] for more information and to access [...] collection, transport, storage, and handling. Performed by [employer], [address] [place] [address] [email or web address], Barbara Mckeon MD, La b. Director SARS Cov-2 Source Nares, left and 04/11/2020 11:15 PM ANILINE PRESS WORKER [employer] right Specimen Anatomical Collection Method Collection Time Receive d Time (Source) Location / / Volume Laterality Swab (Source Non-blood 04/10/2020 10:29 04/10/2020 Required) Collection / AM ANILINE PRESS WORKER 11:56 AM ANILINE PRESS WORKER Unknown Alhaji Egan MD LAB_1 Performing Organization Address City/State/ZIP Code Phon e Number [employer] [address] [place], [place] [id number] documented in this encounter Visit Diagnoses Diagnosis Contact with or exposure to viral diseas e Contact with or exposure to other viral diseases documented in this encounter Care Teams Taxicab Coordinator Relationship Specialty Start Date End Date Gagandeep Hinojosa MD PCP - General 05/17/12 1415 [place] Hernandez [address] Vane Zarate Psychiatrist Psychiatry 03/22/12 [facility] Psychotherapist 08/04/17 [facility] Cured Meats Supervisor 09/13/17 documented as of this encounter
--- OUTSIDE RECORDS SUMMARY | 2022-02-14 10:38 | XMS_ITS | Encounter Summary ---
:1970 Author Organization [facility] Address [address] [place] [address] Care Team Providers Name Role Phone Gagandeep Michaud MD Primary Care Provider Reason for Visit Reason Comments Refill metFORMIN (GLUCOPHAGE) 1000 MG tablet [Pharmacy Med Name: metFORMIN HCl 1000 MG Tablet]; lisinopril (ZEST RIL) 5 MG tablet [Pharmacy Med Name: Lisinopril 5 MG Tablet] Encounter Details Date Type Department Care Team Description 09/02/2020 Refill [place] [facility] Gagandeep Michaud, Refil l (metFORMIN Medicine MD (GLUCOPHAGE) [address] tablet [[place] [address] [place] [address] Name: metFORMIN HCl [phone] (Wo rk) MG Tablet]; lisinopril (ZESTRIL) 5 [...] MICHAUD) Next scheduled visit: None Powered by [facility] by Ribbit, Reference: [id number], 09/02/2020 4:39:03 PM CDT, Pool:MANUEL MOORE ([id number]) documented in this encounter Plan of Treatment Not on filedocumented as of this encounter Visit Diagnoses Not on filedocumented in this encounter Care Teams Ice House Supervisor Relationship Specialty Start Date End Date Gagandeep Michaud MD PCP - General 05/17/12 1415 [facility] Joseelvira [place] V[place]QUEZ [address] Vane Zarate Psychiatrist Psychiatry 03/22/12 [facility] Mental Health Psychotherapist 08/04/17 [facility] Yeast Fermentation Attendant 09/13/17 documented as of this encounter
--- OUTSIDE RECORDS SUMMARY | 2022-02-14 10:38 | XMS_ITS | Encounter Summary ---
:1970 Author Organization [facility] Address [address] [place] [address] Care Team Providers Name Role Phone Gagandeep Hinojosa MD Primary Care Provider Reason for Visit Reason Comments QUESTIONS, GENERAL Encounter Details Date Type Department Care Team Description 05/10/2020 Telephone [place] [facility] Gagandeep Hinojosa, QUESTIONS, GENERAL [address] [place] [address] [place] [address] (Wo rk) Social History Tobacco [...] . Provided pt with number as requested. AIGN COORDINATOR documented in this encounter Plan of Treatment Not on filedocumented as of this encounter Visit Diagnoses Not on filedocumented in this encounter Care Teams Cash Sales Audit Clerk Relationship Specialty Start Date End Date Gagandeep Hinojosa MD PCP - General 05/17/12 1415 [facility] [place] [address] Vane Zarate Psychiatrist Psychiatry 03/22/12 [facility] Mental Health Psychotherapist 08/04/17 [facility] Buyer Agent 09/13/17 documented as of this encounter
--- OUTSIDE RECORDS SUMMARY | 2022-02-14 10:38 | XMS_ITS | Encounter Summary ---
:1970 Author Organization [facility] Address [address], [place] [address] Care Team Providers Name Role Phone Gagandeep Hinojosa MD Primary Care Provider Reason for Visit Reason Comments Patient Care Coordination Encounter Details Date Type Department Care Team Description 09/05/2020 Care Coord [place] [facility] Deborah Rodrigues Patien t Care Phone Medicine [facility] Coordination [facility] [place] [address] [place] [address] [phone] Social History Tobacco Use Types Packs/Day Years [...] Rodrigues LICSW - 09/05/2020 1:18 PM CDT Photoengraving Finisher - Phone Call Contact with: Rustam Reason for call: Care Coordination Discussion/actions: Received a phone call from Rustam. He stated that he is seeing a provider in [place] and is planning on following up there. He requested his Dermatology appointment be cancelled at this time. Rustam also said that the insulin samples that he received are not needed anymore. Rustam did agree to continue contact with care coordination, as he is planning on moving back to [facility] after the first of the year. No immediate concerns at this time. Shared plan: -Care Coordination follow-up as needed. Pt verbalized understanding and agreed with plan of care and follow up. documented in this encounter Plan of Treatment Not on filedocumented as of this encounter Visit Diagnoses Diagnosis Health fci, active care coordinati on - Primary documented in this encounter Care Teams Calculation Clerk Relationship Specialty Start Date End Date Gagandeep Hinojosa MD PCP - General 05/17/12 1415 [facility] [place] [address] Vane Zarate Psychiatrist Psychiatry 03/22/12 [facility] Mental Health Psychotherapist 08/04/17 [facility] Hand Splitter 09/13/17 documented as of this encounter
--- OUTSIDE RECORDS SUMMARY | 2022-02-14 10:38 | XMS_ITS | Encounter Summary ---
:1970 Author [facility] Address [address], [place] [address] Care Team Providers Name Role Phone Gagandeep Hinojosa MD Primary Care Provider Reason for Referral Consult/Transfer Care (Routine) - Closed Specialty Diagnoses / Procedures Referred By Contact Refer red To Contact Diagnoses Complex care coordination Gagandeep Hinojosa MD [address] [place] [phone] Referral ID Status Reason Start Date Expiration Date Visits Requ ested Visits Authorized [id number] Closed 06/09/2020 09/08/2021 1 1 Scheduling Instructions Your provider has recommended care coord ination. A care child care team lead will call you within two weeks. If you would like to s peak with someone sooner, please contact your primary care clinic. OR POLICE LIEUTENANT Consult/Transfer Care (Routine) - Closed Specialty Diagnoses / Procedures Referred By Contact Refer red To Contact Diagnoses Warts, genital Gagandeep Hinojosa MD [address] [place] [phone] Referral ID Status Reason Start Date Expiration Date Visits Requ ested Visits Authorized [id number] Closed 06/09/2020 09/08/2021 1 1 Scheduling Instructions Your provider has recommended an appoint ment with Jimena Quinn. You may call [phone] to schedule your appoi ntment. We suggest you call your health insurance company about your coverage an d benefits for this appointment. OR POLICE LIEUTENANT Reason for Visit Reason Comments WARAutumn Lump Encounter Details Date Type Department Care Team Description 06/09/2020 Office Visit [facility]za Gagandeep Hinojosa g enital (Primary Dx); Romario Rubio MD Skin lesion; [address] [facility] Complex care coordination; [address] Bipolar I disorder (HRC); [place] Vigil [address] [place] VIGIL Drug-induced extrapyramidal movement disorder [phone] [id number] Social History Tobacco Use Types Packs/Day Years [...] Comments Blood Pressure 132/88 06/09/2020 4:43 PM [facility] [employer] Pulse 99 06/09/2020 4:43 PM [facility] [employer] Temperature - - Respiratory Rate - - Oxygen Saturation - - Inhaled Oxygen Concentration - - Weight 88.9 kg (196 lb) 06/09/2020 4:43 PM [facility] [employer] Height - - Body Mass Index 28.12 12/04/2019 10:49 AM CDT documented in this encounter Progress Notes Gagandeep Hinojosa MD - 06/09/2020 4:40 PM CST ICD-10-CM 1. Warts, genital A63.0 DESTRUCT BENIGN SKIN LESIONS UP TO 14 [address] Dermatology Consult-Adult/Peds 2. Skin lesion L98.9 3. [...] Just discharged from a crisis facility at [facility] for acute on psychiatric crisis. Not suicidal, [...] Diagnosis Date Noted ??? Non-proliferative diabetic retinopathy ([facility]) 05/02/2019 ??? Hyponatremia 01/16/2018 ??? Tinea versicolor 07/18/2015 ??? Tobacco use disorder ([facility]) 10/26/2012 ??? Anemia 05/02/2012 Overview Note: Anemia, unspecified ??? Microalbuminuria 02/04/2012 ??? UT, old ([facility]) 09/16/2011 ??? History of PTCA 09/16/2011 Overview Note: History of PTCA 04/2011 BMS RCA ??? Obesity, Class I, BMI 30-34.9 ([facility]) 09/16/2011 Overview Note: Body mass index is 31.16 kg/(m^2). ??? Hyperlipidemia with target LDL less than 70 ([facility]) 06/08/2011 Overview Note: Hyperlipidemia LDL goal < 70 ??? ASHD (arteriosclerotic heart disease) ([facility]) 05/04/2011 ??? Erectile dysfunction 01/22/2011 Overview Note: side effect Risperdal ??? Type 2 diabetes mellitus, uncontrolled ([facility]) 12/11/2010 Overview Note: Type II or unspecified type diabetes mellitus without mention of complication, uncontrolled ([facility]) ??? Dermatophytosis of body 09/04/2010 Class: Historical Overview Note: Tinea Corporis ??? Coronary atherosclerosis ([facility]) 12/22/2009 Overview Note: LW Modifier: mod [...] 360 Tablet 3 ??? Continuous Blood Gluc Director Of Hemophilia (FREESTYLE TALAT 2 READER SYST) ADÁN Use to scan blood sugars per substance abuse clinician instructions. 1 Each 0 ??? Continuous Blood Gluc Sensor (FREESTYLE TALAT 14 DAY SENSOR) [facility] Use as directed. Change every 14 days. [...] 1 Tablet by mouth. 01/16/2018: [facility] Re[facility] Sig: Take 1 tablet by [...] DESTRUCT BENIGN SKIN LESIONS UP TO 14 [id number] Dermatology Consult-Adult/Peds 2. Skin lesion L98.9 Will [...] follow-up He has a visit with his transitional care nurse for on . Hopefully she can help with housing. Follow-up: 3 weeks OR POLICE LIE[employer]ENANT documented in this encounter Plan of Treatment Scheduled Referrals Name Type Priority Associated Diagnoses Order [facility] Dermatology Referral Routine Warts, genital Ordered: 05/26 Consult-Adult/Peds documented as of this encounter Visit Diagnoses Diagnosis Warts, genital - Primary Condyloma acuminatum Skin lesion Unspecified disorder of skin and subcuta neous tissue Complex care coordination Bipolar I disorder (HRC) Bipolar I disorder, most recent episode (or current) unspecified Drug-induced extrapyramidal movement dis order (HRC) documented in this encounter Care Teams Monument Stonecutter Relationship Specialty Start Date End Date Gagandeep Hinojosa MD PCP - General 05/17/12 [facility] [place] [address] Vane Zarate Psychiatrist Psychiatry 03/22/12 [facility] Psychotherapist 08/04/17 [facility] Environmental Health Safety Engineer 09/13/17 documented as of this encounter
--- OUTSIDE RECORDS SUMMARY | 2022-02-14 10:38 | XMS_ITS | Encounter Summary ---
:1970 Author Organization [employer] Address [address], [place] [address] Care Team Providers Name Role Phone Gagandeep Hinojosa MD Primary Care Provider Reason for Visit Reason Comments Post Hospital Discharge Follow Up ACO Post DC Encounter Details Date Type Department Care Team Description 06/20/2020 Telephone [facility] Gagandeep Hinojosa, Post Hospital Discharge Medicine MD Follow Up (ACO Post DC) 14[address] [facility] . [address] [place] [address] [place] [address] [phone] (Wo rk) Social History Tobacco Use Types [...] for details. Rustam has been working with [facility] Care Coordination. Pt shared that he has concerns regarding housing, he will no longer have as of July 22, 2020. He has tried to get into [employer] housing but this has not worked out. [...] treat chronic groin growths with liquid nitrogen. Retail Marketing Manager will notify Care Coordination and PCP of Pt's questions. NDARY ART TEACHER documented in this encounter Plan of Treatment Not on filedocumented as of this encounter Visit Diagnoses Not on filedocumented in this encounter Care Teams Chemical Dependency Counselor Relationship Specialty Start Date End Date Gagandeep Hinojosa MD PCP - General 05/17/[address] [place], [place] [address] [address] Vane Zarate Psychiatrist Psychiatry 03/22/12 [facility] Psychotherapist 08/04/17 [facility] Animal Science Instructor 09/13/17 documented as of this encounter
--- OUTSIDE RECORDS SUMMARY | 2022-02-14 10:38 | XMS_ITS | Encounter Summary ---
:1970 Author Organization [employer] Address [address], [place] [address] Care Team Providers Name Role Phone Gagandeep Michaud MD Primary Care Provider Reason for Visit Reason Onset Date Comments Refill Refill 05/10/2020 Encounter Details Date Type Department Care Team Description 05/08/2020 Refill [facility] Gagandeep Michaud MD Refill; Refill 1415 [facility] . [address] [place] [address] [place], [place] [id number] (Wo rk) Social History Tobacco Use Types [...] Tablets by mouth two times a day. INUM CONTAINER TESTER Alyssa Porter RN - 05/09/2020 11:52 AM [...] TWO TABLETS BY MOUTH TWICE A DAY INUM CONTAINER TESTER Interface, Out Surescripts Prov Query - 05/08/2020 [...] WBC: 8.4 k/cmm on 11/28/2018 Powered by [employer], Reference: [id number], 05/08/2020 12:39:24 PM ALUMINUM CONTAINER TESTER, Pool: MANUEL MOORE ([id number]) INUM CONTAINER TESTER documented in this encounter Plan of Treatment Not on filedocumented as of this encounter Visit Diagnoses Diagnosis Bipolar I disorder (HRC) - Primary Bipolar I disorder, most recent episode (or current) unspecified ASHD (arteriosclerotic heart disease) ([facility]) Coronary atherosclerosis of unspecified type of vessel, umkumiut or graft documented in this encounter Care Teams Staff Consultant Relationship Specialty Start Date End Date Gagandeep Michaud MD PCP - General 05/17/[address] [place] [address] [place] Gerber [address] Vane Zarate Psychiatrist Psychiatry 03/22/12 [facility] Psychotherapist 08/04/17 [facility] Change Agent 09/13/17 documented as of this encounter
--- OUTSIDE RECORDS SUMMARY | 2022-02-14 10:38 | XMS_ITS | Encounter Summary ---
:1970 Author Organization [employer] Address [address] [address] Care Team Providers Name Role Phone Gagandeep Michaud MD Primary Care Provider Reason for Visit Reason Onset Date Comments Refill 07/01/2020 trihexyphenidyl (ART ANE) 2 MG tablet Encounter Details Date Type Department Care Team Description 07/01/2020 Refill [facility] Gagandeep Michaud, Refil l (trihexyphenidyl Medicine (ARTANE) 2 MG tablet) 1415 [facility] . [address] [place] [address] [place] [id number] (Wo rk) Social History Tobacco Use Types [...] found) Next scheduled visit: None Powered by [employer], Reference: [id number], 07/01/2020 8:27:18 AM Minerva GRANGER ([id number]) documented in this encounter Plan of Treatment Not on filedocumented as of this encounter Visit Diagnoses Not on filedocumented in this encounter Care Teams Stab Setter And Driller Relationship Specialty Start Date End Date Gagandeep Michaud MD PCP - General 05/17/[address] [place] [address] [place] Ger[place] [address] Vane Zarate Psychiatrist Psychiatry 03/22/12 [facility] Psychotherapist 08/04/17 [facility] Fire Captain 09/13/17 documented as of this encounter
--- OUTSIDE RECORDS SUMMARY | 2022-02-14 10:38 | XMS_ITS | Encounter Summary ---
:1970 Author Organization [facility] Address [address] [place] [address] Care Team Providers Name Role Phone Gagandeep Michaud MD Primary Care Provider Reason for Visit Reason Comments Refill NOVOFINE AUTOCOVER PEN NEEDL E 30G X 8 MM [Pharmacy Med Name: NovoFine Autocover Pen Needle 30G X 8 MM Miscellaneous] Encounter Details Date Type Department Care Team Description 09/07/2021 Refill [facility] Gagandeep Michaud, Refil l (NOVOFINE Medicine AUTOCOVER PEN NEEDLE 30G [address] X 8 MM [Pharmacy Med [place] [address] [place] [address] Name: NovoFine Autocover [phone] (Wo rk) Pen Needle 30G X 8 [...] visit Patient no longer receiving care at [facility]: Route to Refill Wiza Admin Pool-PN (P [id number]) Shayy Haynes RN - 09/10/2021 9:52 AM CDT Further Assistance Needed on Refill from Medical Officer Patient is overdue for Office visit. An [...] months). Last qualifying visit: 06/09/2020 (with GAGANDEEP MIHCAUD) Next scheduled visit: None [employer] Embedded Refills, Reference: [id number], 09/07/2021 1:41:05 PM CDT, Pool: MANUEL REFILL ([id number]) documented in this encounter Plan of Treatment Not on filedocumented as of this encounter Visit Diagnoses Not on filedocumented in this encounter Care Teams Boat Wrapper Relationship Specialty Start Date End Date Gagandeep Michaud MD PCP - General 05/17/12 [address] [place] [address] Vane Zarate Psychiatrist Psychiatry 03/22/12 [facility] Psychotherapist 08/04/17 [facility] Floor Manager 09/13/17 documented as of this encounter
--- OUTSIDE RECORDS SUMMARY | 2022-02-14 10:38 | XMS_ITS | Encounter Summary ---
:1970 Author Organization [employer] Address [address] [place] [address] Care Team Providers Name Role Phone Gagandeep Michaud MD Primary Care Provider Reason for Visit Reason Comments Refill Lasix Encounter Details Date Type Department Care Team Description 09/02/2020 Refill [facility] Gagandeep Michaud MD Refill (Lasix) 1415 [facility] . [address] [place] [address] [place], [place] [address] (Wo rk) Social History Tobacco Use Types [...] provider through [place] as he moved to [place] now. Will request refills through new provider. [...] TABLET BY MOUTH EVERY MORNING Interface, Out Seamless Receipts Prov Query - 09/02/2020 1:14 PM CDT [...] K: 5 mEq/L on 11/28/2018 Powered by [employer], Reference: [id number], 09/02/2020 1:14:54 PM CDT, Pool: MANUEL LANDAILL ([id number]) documented in this encounter Plan of Treatment Not on filedocumented as of this encounter Visit Diagnoses Not on filedocumented in this encounter Care Teams Art Objects Salesperson Relationship Specialty Start Date End Date Gagandeep Michaud MD PCP - General 05/17/12 1415 [facility] [place] [address] Vane Zarate Psychiatrist Psychiatry 03/22/12 [facility] Psychotherapist 08/04/17 [facility] Floor Worker [place] 09/13/17 documented as of this encounter
--- OUTSIDE RECORDS SUMMARY | 2022-02-14 10:38 | XMS_ITS | Encounter Summary ---
:1970 Author Organization [employer] Address [address] [place] [address] Care Team Providers Name Role Phone Gagandeep Michaud MD Primary Care Provider Reason for Visit Reason Onset Date Comments Refill 05/24/2020 insulin pen needle ( BD ULTRAFINE JANET) 32G X 4 MM Encounter Details Date Type Department Care Team Description 05/24/2020 Refill [facility] Gagandeep Michaud, Refil l (insulin pen Medicine needle (BD ULTRAFINE [address] JANET) 32G X 4 MM) [place] [address] [place] [address] (Wo rk) Social History Tobacco Use Types [...] Provider: GAGANDEEP MICHAUD Ordering User: ABBIE MITCHELL UCTION REPRODUCTION MANAGER Interface, Out [employer] Query - 05/24/2020 11:47 AM CST insulin [...] found) Next scheduled visit: None Powered by [employer], Reference: [id number], 05/24/2020 11:47:11 AM PRODUCTION REPRODUCTION MANAGER, Pool: MANUEL REFILL ([id number]) UCTION REPRODUCTION MANAGER documented in this encounter Plan of Treatment Not on filedocumented as of this encounter Visit Diagnoses Diagnosis Uncontrolled type 2 diabetes mellitus wi th microalbuminuria, with long-term current use of insulin - Primary documented in this encounter Care Teams Fbi Field Agent Relationship Specialty Start Date End Date Gagandeep Michaud MD PCP - General 05/17/12 [address] [facility] [place] [address] Vane Zarate Psychiatrist Psychiatry 03/22/12 [facility] Psychotherapist 08/04/17 [facility] Escalator Attendant 09/13/17 documented as of this encounter
--- OUTSIDE RECORDS SUMMARY | 2022-02-14 10:39 | XMS_ITS | Encounter Summary ---
:1970 Author Organization [employer] Address [address] [place] [address] Care Team Providers Name Role Phone Gagandeep Michaud MD Primary Care Provider Reason for Visit Reason Comments Refill QUEtiapine (SEROQUEL) 200 MG tablet [Pharmacy Med Name: QUEtiapine Fumarate 200 MG Oral Tablet] Encounter Details Date Type Department Care Team Description 10/14/2019 Refill Gagandeep Storm, Rochelle l (QUEtiapine Medicine MD (SEROQUEL) 200 MG tablet [address] [facility] [Pharmacy Med Name: [place] [address] [place] [address] QUEtiapine Fumarate 200 [phone] (Wo rk) MG Oral Tablet]) Social History [...] started: 07/09/2016 Last ordered by GAGANDEEP MICHAUD: 08/14/2019 (61 days ago) QTY: 30, Refills: 1, Sig: take 1 tabletby mouth daily at bedtime. (changed but equivalent) -> Medication cannot be delegated. Last qualifying visit: 08/28/2019 (with GAGANDEEP MICHAUD) Next scheduled visit: None Powered by [employer], Reference: [id number], 10/14/2019 4:31:34 PM CDT, Pool: MANUEL REFILL ([id number]) documented in this encounter Plan of Treatment Not on filedocumented as of this encounter Visit Diagnoses Not on filedocumented in this encounter Care Teams Staffing Manager Relationship Specialty Start Date End Date Gagandeep Michaud MD PCP - General 05/17/[address] [place] [address] [place] Gerber [address] Vane Zarate Psychiatrist Psychiatry 03/22/12 [facility] Psychotherapist 08/04/17 [facility] Sorter Upholstery Parts 09/13/17 documented as of this encounter
--- OUTSIDE RECORDS SUMMARY | 2022-02-14 10:39 | XMS_ITS | Encounter Summary ---
:1970 Author Organization [employer] Address [address] [place] [address] Care Team Providers Name Role Phone Gagandeep Michaud MD Primary Care Provider Reason for Visit Reason Onset Date Comments Refill 01/09/2020 metFORMIN (GLUCOPHAG E) 500 MG tablet Encounter Details Date Type Department Care Team Description 01/09/2020 Refill [facility] Gagandeep Michaud, Refil l (metFORMIN Medicine (GLUCOPHAGE) [address] tablet) [place] [address] [place], [place] [address] (Wo rk) Social History Tobacco Use Types [...] times a day with meals. Interface, Out LachelleSoulstice EndeavorsjanaeReclog Prov Query - 01/09/2020 4:06 PM CDT [...] HBA1C: 11.3 % on 12/04/2019 Powered by [employer], Reference: [id number], 01/09/2020 4:06:27 PM CDT, Pool: MANUEL MOORE ([id number]) documented in this encounter Plan of Treatment Not on filedocumented as of this encounter Visit Diagnoses Not on filedocumented in this encounter Care Teams Concrete Curer Relationship Specialty Start Date End Date Gagandeep Michaud MD PCP - General 05/17/12 [address] [place] [address] Vane Zarate Psychiatrist Psychiatry 03/22/12 [facility] Psychotherapist 08/04/17 [facility] Manager Pipeline 09/13/17 documented as of this encounter
--- OUTSIDE RECORDS SUMMARY | 2022-02-14 10:39 | XMS_ITS | Encounter Summary ---
:1970 Author Organization [facility] Address [address] [place] [address] Care Team Providers Name Role Phone Gagandeep Hinojosa MD Primary Care Provider Reason for Visit Reason Comments HYPOGLYCEMIA Encounter Details Date Type Department Care Team Description 10/05/2019 Nurse Triage [facility] Gagandeep Hinojosa MD HYPOGLYCEMIA 1415 [facility] . [address] [facility] [place] [address] [place] [address] [phone] (Wo rk) Social History Tobacco Use Types [...] 10/05/2019 5:11 PM CDT Mark Pittman RN, Extrusion Press Supervisor as OFE. Appt scheduled to speak with [...] unknown Protocols used: DIABETES - LOW BLOOD [id number] documented in this encounter Plan of Treatment Not on filedocumented as of this encounter Visit Diagnoses Not on filedocumented in this encounter Care Teams Solar Energy Engineer Relationship Specialty Start Date End Date Gagandeep Hinojosa MD PCP - General 05/17/[address] [place] [address] Vane Zarate Psychiatrist Psychiatry 03/22/12 [facility] Psychotherapist 08/04/17 [facility] Retail Beauty Specialist 09/13/17 documented as of this encounter
--- OUTSIDE RECORDS SUMMARY | 2022-02-14 10:39 | XMS_ITS | Encounter Summary ---
:1970 Author Organization [facility] Address [address] [place] [address] Care Team Providers Name Role Phone Gagandeep Hinojosa MD Primary Care Provider Reason for Referral Procedure/Equipment (Routine) - Closed Specialty Diagnoses / Procedures Referred By Contact Refer red To Contact Diagnoses Pain of toe of right foot Closed nondisplaced fracture of proximal phalanx of lesser toe of right foot, initial encounter Gagandeep Hinojosa MD Procedures Walking Boot [address] [place] [address] Referral ID Status Reason Start Date Expiration Date Visits Requ ested Visits Authorized [id number] Closed 03/17/2020 06/16/2021 1 1 L MAKER Procedure/Equipment (Routine) - Incomplete Specialty Diagnoses / Procedures Referred By Contact Refer red To Contact Diagnoses Pain of toe of right foot Gagandeep Hinojosa MD Procedures XR Toe Rt 2nd 3 Views [address] [place] [address] Referral ID Status Reason Start Date Expiration Date Visits V isits Requested Authorized [id number] Incomplete 03/17/2020 06/16/2021 1 1 L MAKER Reason for Visit Reason Comments Diabetes check R foot fell a week ago Encounter Details Date Type Department Care Team Description 03/17/2020 Office Visit Gagandeep Storm Pain of toe of right foot (Primary Dx); Romario Rubio MD Closed nondisplaced fracture of proximal phalanx of lesser toe of right foot, initial encounter; [address] Uncontro lled type 2 diabetes mellitus with complication, with long-term current use of insulin (HRC); [address] Diabetic polyneuropathy associated with type 2 diabetes mellitus (HRC); [place] [address] [place] Tobacco use disorder [phone] Social History Tobacco Use Types Packs/Day Years [...] Comments Blood Pressure 123/77 03/17/2020 12:59 PM DOWEL MAKER Pulse 81 03/17/2020 12:59 PM DOWEL MAKER Temperature - - Respiratory Rate - - Oxygen Saturation - - Inhaled Oxygen Concentration - - Weight 88.5 kg (195 lb) 03/17/2020 12:59 PM DOWEL MAKER Height - - Body Mass Index 27.98 [...] Diagnosis Date Noted ??? Non-proliferative diabetic retinopathy ([facility]) 05/02/2019 ??? Hyponatremia 01/16/2018 ??? Tinea versicolor 07/18/2015 ??? Tobacco use disorder ([facility]) 10/26/2012 ??? Anemia 05/02/2012 Overview Note: Anemia, unspecified ??? Microalbuminuria 02/04/2012 ??? [place], old ([facility]) 09/16/2011 ??? History of PTCA 09/16/2011 Overview Note: History of PTCA 04/2011 BMS RCA ??? Obesity, Class I, BMI 30-34.9 ([facility]) 09/16/2011 Overview Note: Body mass index is 31.16 kg/(m^2). ??? Hyperlipidemia with target LDL less than 70 ([facility]) 06/08/2011 Overview Note: Hyperlipidemia LDL goal < 70 ??? ASHD (arteriosclerotic heart disease) ([facility]) 05/04/2011 ??? Erectile dysfunction 01/22/2011 Overview Note: side effect Risperdal ??? Type 2 diabetes mellitus, uncontrolled ([facility]) 12/11/2010 Overview Note: Type II or unspecified type diabetes mellitus without mention of complication, uncontrolled ([facility]) ??? Dermatophytosis of body 09/04/2010 Class: Historical Overview Note: Tinea Corporis ??? Coronary atherosclerosis ([facility]) 12/22/2009 Overview Note: LW Modifier: mod RCA, negative nuclear stress test ; CAD ??? Nonspecific abnormal results of liver function study 12/22/2009 Overview Note: Liver Function Tests Abnormal ??? Bipolar I disorder ([facility]) 09/15/2005 Overview Note: LW Onset: ; [...] 360 Tablet 3 ??? Continuous Blood Gluc Elevator Mechanic Apprentice (Crowd FactorySTYLE TALAT 2 READER SYSTM) ADÁN Use to scan blood sugars per medication nurse instructions. 1 Each 0 ??? Continuous Blood Gluc Sensor (FREESTYLE TALAT 14 DAY SENSOR) [facility] Use as directed. Change every 14 days. [...] 1 Tablet by mouth. 01/16/2018: [facility] [facility] Re[facility] Sig: Take 1 tablet by mouth [...] complication, with long-term current use of insulin ([facility]) E11.8 E11.65 Z79.4 4. Diabetic polyneuropathy associated with type 2 diabetes mellitus ([facility]) E11.42 5. Tobacco use disorder ([facility]) F17.200 Given his neuropathy and the clinically suggestive signs of fracture, I would like to place him in acam walker. He will follow-up in 2 weeks Follow-up: 2 weeks L MAKER documented in this encounter Plan of Treatment Not on filedocumented as of this encounter Results XR Toe Rt 2nd 3 Views (03/17/2020 1:45 PM DOWEL MAKER) Anatomical Region Laterality Modality Lower Extremity, Foot, Foot & Ankle Digi ora Radiography Specimen (Source) Anatomical Collection Method Collection Time Re ceived Time Location / / Volume Laterality 03/17/2020 1:34 PM DOWEL MAKER Impressions 03/17/2020 2:23 PM DOWEL MAKER COMPARISON: ??None. FINDINGS: ??Question impacted second pro [...] limb documented in this encounter Care Teams Auto Parts Manager Relationship Specialty Start Date End Date Gagandeep Hinojosa MD PCP - General 05/17/12 [address] [place] [address] Vane Zarate Psychiatrist Psychiatry 03/22/12 [facility] Psychotherapist 08/04/17 [facility] Chief Diversity Officer 09/13/17 documented as of this encounter
--- OUTSIDE RECORDS SUMMARY | 2022-02-14 10:39 | XMS_ITS | Encounter Summary ---
:1970 Author Organization [employer] Address [address] [place] [address] Care Team Providers Name Role Phone Gagandeep Hinojosa MD Primary Care Provider Reason for Visit Reason Comments LACERATION, TOES Encounter Details Date Type Department Care Team Description 09/14/2019 Nurse Triage [place] [facility] Line Gagandeep Hinojosa, LACERATION, TOES [address] [place] [address] [place] [address] (Wo rk) Social History Tobacco [...] documented as of this encounter Nursing Notes Kim Garza RN - 09/14/2019 9:02 PM CDT Spoke to pt, noticed that his big toe nail is almost completely torn off. Some bruising around toe. No bleeding. Red, slight pain. Doesn't remember any injury. Denies fever or discharge. Problem list reviewed as related to this call. Reason for Disposition ??? Torn toenail Protocols used: TOE [id number] documented in this encounter Plan of Treatment Not on filedocumented as of this encounter Visit Diagnoses Not on filedocumented in this encounter Care Teams Forge Shop Supervisor Relationship Specialty Start Date End Date Gagandeep Hinojosa MD PCP - General 05/17/12 14[address] [facility] [place] [address] Vane Zarate Psychiatrist Psychiatry 03/22/12 [facility] Psychotherapist 08/04/17 [facility] Assistant Athletic Trainer 09/13/17 documented as of this encounter
--- OUTSIDE RECORDS SUMMARY | 2022-02-14 10:39 | XMS_ITS | Encounter Summary ---
:1970 Author Organization [facility] Address [address], [place] [address] Care Team Providers Name Role Phone Gagandeep Michaud MD Primary Care Provider Reason for Visit Reason Onset Date Comments Refill 12/27/2019 risperiDONE (RISPERD AL) 3 MG tablet Encounter Details Date Type Department Care Team Description 12/27/2019 Refill [facility] Gagandeep Michaud, Refil l (risperiDONE Medicine MD (RISPERDAL) 3 MG tablet) 1415 [facility] . [address] [place] [address] [place], [place] [id number] (Wo rk) Social History Tobacco Use Types [...] Notes Interface, Out Surescript[employer] Prov Query - 12/27/2019 10:12 AM CDT risperiDONE (RISPERDAL) 3 MG tablet Medication started: 06/09/2018 Last ordered by GAGANDEEP MICHAUD: 10/28/2019 (60 days ago) QTY: 60, Refills: 1, Sig: take 1 tabletby mouth twice daily (changed but equivalent) -> Medication cannot be delegated. Last qualifying visit: 12/04/2019 (with GAGANDEEP MICHAUD) Next scheduled visit: None Powered by [employer], Reference: [id number], 12/27/2019 10:12:03 AM CDT, Pool: MANUEL MOORE ([id number]) documented in this encounter Plan of Treatment Not on filedocumented as of this encounter Visit Diagnoses Not on filedocumented in this encounter Care Teams Blending Plant Operator Relationship Specialty Start Date End Date Gagandeep Michaud MD PCP - General 05/17/12 [facility] [facility] [address] Vane Zarate Psychiatrist Psychiatry 03/22/12 [facility] Psychotherapist 08/04/17 [facility] Predictive Maintenance Specialist 09/13/17 documented as of this encounter
--- OUTSIDE RECORDS SUMMARY | 2022-02-14 10:39 | XMS_ITS | Encounter Summary ---
:1970 Author Organization [employer] Address [address], [place] [address] Care Team Providers Name Role Phone Gagandeep Hinojosa MD Primary Care Provider Reason for Visit Reason Comments HYPOGLYCEMIA Encounter Details Date Type Department Care Team Description 10/05/2019 Phone Visit Urgent Care [facility] (Primary Dx); [place] Uncontrolled type 2 diabetes mellitus with complication, with long-term current use of insulin ([facility]) [address] [place], [place] [address] Social History Tobacco Use Types [...] documented in this encounter Care Teams Assistant Kitchen Manager Relationship Specialty Start Date End Date Gagandeep Hinojosa MD PCP - General 05/17/[address] [place] [address] Vane Zarate Psychiatrist Psychiatry 03/22/12 [facility] Psychotherapist 08/04/17 [facility] Desk Lieutenant 09/13/17 documented as of this encounter
--- OUTSIDE RECORDS SUMMARY | 2022-02-14 10:39 | XMS_ITS | Encounter Summary ---
:1970 Author Organization [employer] Address [address] [place] [address] Care Team Providers Name Role Phone Gagandeep Michaud MD Primary Care Provider Reason for Visit Reason Comments Refill metFORMIN (GLUCOPHAGE) 500 M G tablet [Pharmacy Med Name: metFORMIN HCl 500 MG Oral Tablet] Encounter Details Date Type Department Care Team Description 10/03/2019 Refill [facility] Gagandeep Michaud, Refrose mary l (metFORMIN Medicine MD (GLUCOPHAGE) [address] tablet [[place] [address] [place] [address] Name: metFORMIN HCl 500 [phone] (Wo rk) MG Oral Tablet]) Social History [...] encounter Nursing Notes Shayy Haynes RN - 10/04/2019 12:50 PM CDT Renewed medication per medication refill protocol. Requested Prescriptions Pending Prescriptions Disp Refills metFORMIN (GLUCOPHAGE) 500 MG tablet [Pharmacy Med Name: metFORMIN HCl 500 MG Oral Tablet] 360 Tablet 0 Sig: TAKE 2 TABLETS BY MOUTH TWICE DAILY WITH MEALS Interface, Out [employer] Query - 10/03/2019 12:48 PM CDT metFORMIN (GLUCOPHAGE) 500 MG tablet [Pharmacy Med Name: metFORMIN HCl 500 MG Oral Tablet] Medication started: 01/16/2014 Last ordered by GAGADNEEP MICHAUD F: 05/22/2019 (134 days ago) QTY: 360, Refills: 0, Sig: take 2 tablets by mouth twice daily with meals (unchanged) -> Rapid A1C is abnormal (11.4 % is greater than 8.0 %) -> Refill x 3 months (until due for a(n) Rapid A1C check) Last qualifying visit: 08/28/2019 (with GAGANDEEP MICHAUD) Next scheduled visit: None GFR (CrCl) estimated: >60 ml/min on 08/28/2019 Rapid A1C : 11.4 % on 08/28/2019 Powered by [employer], Reference: [id number], 10/03/2019 12:48:11 PM CDT, Pool: MANUEL REFILL ([id number]) documented in this encounter Plan of Treatment Not on filedocumented as of this encounter Visit Diagnoses Diagnosis Uncontrolled type 2 diabetes mellitus wi thout complication, without long-term current use of insulin documented in this encounter Care Teams Drill Sharpener Operator Relationship Specialty Start Date End Date Gagandeep Michaud MD PCP - General 05/17/12 [address] [facility] [place] [address] Vane Zarate Psychiatrist Psychiatry 03/22/12 [facility] Psychotherapist 08/04/17 [facility] Helmet Hat Brim Cutter 09/13/17 documented as of this encounter
--- OUTSIDE RECORDS SUMMARY | 2022-02-14 10:39 | XMS_ITS | Encounter Summary ---
:1970 Author Organization [employer] Address [address], [place] [address] Care Team Providers Name Role Phone Gagandeep Hinojosa MD Primary Care Provider Reason for Visit Reason Comments FOLLOW-UP,DIABETES Encounter Details Date Type Department Care Team Description 01/02/2020 Care Coord Office Judy Luke RN FOLLOW-UP,DIABETES Visit Medicine [facility] [address] [place] [address] [place] [phone] [address] Social History Tobacco Use Types Packs/Day Years [...] encounter Progress Notes Judy Pittman RN - 01/02/2020 1:00 PM CDT RN Farm Machine Tender Visit Pt: Timur Krishnamurthy Referred by: Gagandeep [...] Touch Ultra/Freestyle Bharath CURRENT GLUCOSE PATTERNS: since 12/26/19 Fastin - 182 Before dinner: 144 - 168 Before Bed: 181 - 200, 210 after ice cream Hypoglycemia (previous two weeks): none ASSESSMENT: Due to the COVID-19 pandemic, this visit was completed by telephone. Rustam is in good spirits, despite his upcoming separation from his . He plans on moving to [place] the end of January. Rustam is working with [facility]. I advised he apply for Section 8 Housing, knowing that the wait list is long, but stressing it is important to get on the list. Rustam agreed. Medication Rustam is currently using a regimen of metformin, along with Tresiba U200 and Relion Regular insulin.He continues to use a Regular insulin sliding scale at two units per 50 points >200. Rustam admitshe does not take his Regular insulin consistently, but states he never misses taking Tresiba insulin. He attributes not taking his Regular insulin in the morning because he often skips breakfast, only drinking coffee. I suggested Rustam take his morning dose with lunch, as long as there is at least 6 hours between his lunch and dinner doses to prevent stacking. Rustam agreed. He notes he is in a rut when it comes to taking his insulin. If his BG is good, he simply doesn't take his dose and will wait until his next high reading. I stressed to Rustam that he has a good insulin plan that works, all he needs to do is take his insulin consistently and his glucose control would improve significantly, help him to feel better, and prevent further complications from T2 DM. Because Rustam is from his , he should be eligible to apply for assistance through [employer] PAP with Tresiba and Novolog. We will apply at our next visit. Blood Glucose Rustam is very happy to report he was approved for the Benefit Assistance Program to help with the cost of his FreeStyle Bharath sensors. He states a 3 month supply of sensors is due to arrive from [employer] today. I advised Rustam to review the [id number] instructions for application of a new sensor. Rustam requests that I mail him a new log book to record his readings. Diet Rustam continues to try to keep [...] food the next time he eats it. Exercise I reminded Rustam that activity is just as important as diet and medication for managing glucose control. He states he is walking 1/2 mile, 3-4 times a week. I encouraged Rustam to continue trying to increase his activity. Hypoglycemia Rustam denies any further lows. I reviewed how to use Routine 15 again and Rustam reports he has access to glucose tablets at all times now. Follow up Rustam is due for DM follow up in 2 months. We agreed that Rustam has all the tools he needs to control his DM, and knows what he needs to do. Rustam is the only one who can check his BG and take his insulin consistently. He is scheduled to move the end of January and states he will be very busy getting ready. Rustam will continue to focus on taking his Regular insulin twice daily, as prescribed, and using his unit/CHO ratio and sliding scale. We will follow up in 2 months (after his move), sooner if hehas any question, problems, or experiences hypoglycemia. Family/social support: Patient attended today's visit by telephone. He currently lives with spouse. Current activity regimen: walks 0.5 miles 3-4 days a week Patient barrier(s) to learning identified: Finance and Emotional. BG Goals: [facility] Nursing Home Lab Goal <7 Pre-meal: 70-130 mg/dL PPG: <180 mg/dL Bedtime: 90-150 mg/dL A1c: <7.0% Recommended testing frequency: Before each meal and before HS Snack Education content covered today: Correction Factor Unit/CHO Ratio BG Monitoring Exercise Diet Edwin received verbal instructions and written materials tailored to his preferred method of learning. Literacy level assessed (as appropriate). Interventions, including teach back, used to verify understanding. SHARED PLAN: Continue current insulin and medication regimen, as prescribed. Take Regular insulin consistently, twice daily, with 6+ hrs between doses. Carefully count CHO choices to calculate unit/CHO dosing. SMBG as directed, record readings. Scheduled DM follow up on 02/26/20, apply for [employer] PAP. Rustam to call if symptoms of hypoglycemia or readings < 70 mg/dL. Rustam verbalized understanding and agreed with plan of care and follow up. documented in this encounter Plan of Treatment Not on filedocumented as of this encounter Visit Diagnoses Plan of Care - Judy Pittman RN - 01/02/2020 1:00 PM CDT Phone visit documented in this encounter Care Teams Auto Damage Trainee Relationship Specialty Start Date End Date Gagandeep Hinojosa MD PCP - General 05/17/12 [address] [facility] [place] [address] Vane Zarate Psychiatrist Psychiatry 03/22/12 [facility] Mental [facility] Psychotherapist 08/04/17 [facility] Cardiology Clinical Nurse Specialist 09/13/17 documented as of this encounter
--- OUTSIDE RECORDS SUMMARY | 2022-02-14 10:39 | XMS_ITS | Encounter Summary ---
:1970 Author Organization [employer] Address [address] [place] [address] Care Team Providers Name Role Phone Gagandeep Hinojosa MD Primary Care Provider Reason for Referral Consult/Transfer Care (Routine) - Closed Specialty Diagnoses / Procedures Referred By Contact Refer red To Contact Diagnoses Uncontrolled type 2 diabetes mellitus with hyperglycemia (HRC) Gagandeep Hinojosa MD [address] [facility] [place] [address] Referral ID Status Reason Start Date Expiration Date Visits Requ ested Visits Authorized [id number] Closed 12/04/2019 03/04/2021 1 1 Scheduling Instructions Your provider has recommended an appoint ment with [facility]. You may call [phone] to schedule your appoi ntment. Reason for Visit Reason Comments Medicare Annual Wellness Diabetes Growth on penis, x2 months Encounter Details Date Type Department Care Team Description 12/04/2019 Office Visit Gagandeep Storm for Medicare annual wellness exam (Primary Dx); Romario Rubio MD Uncontrolled type 2 diabetes mellitus wi th hyperglycemia (HRC); [address] [facility] Essential hypertension; [place] [address] Marlena Warts, genital; [phone] [place] Tinea versicolo r [phone] Social History Tobacco Use Types Packs/Day Years [...] DESTRUCT BENIGN SKIN LESIONS UP TO 14 40057 Repeat treatment in 3 weeks Tinea versicolor [...] 1 Tablet by mouth. 01/16/2018: Received from: [employer] [facility] Received Sig: Take 1 tablet by [...] DESTRUCT BENIGN SKIN LESIONS UP TO 14 [address] 5. Tinea versicolor B36.0 terbinafine (LAMISIL) 250 [...] versicolor documented in this encounter Care Teams Cloth Finishing Range Operator Relationship Specialty Start Date End Date Gagandeep Hinojosa MD PCP - General 05/17/[address] [place] [address] Vane Zarate Psychiatrist Psychiatry 03/22/12 [facility] Health Psychotherapist 08/04/17 [facility] Local Truck Driver 09/13/17 documented as of this encounter
--- OUTSIDE RECORDS SUMMARY | 2022-02-14 10:39 | XMS_ITS | Encounter Summary ---
:1970 Author Organization [employer] Address [address] [place] [address] Care Team Providers Name Role Phone Gagandeep Michaud MD Primary Care Provider Reason for Visit Reason Comments Refill risperiDONE (RISPERDAL) 3 MG tablet [Pharmacy Med Name: risperiDONE 3 MG Oral Tablet] Encounter Details Date Type Department Care Team Description 10/28/2019 Refill Gagandeep Storm, Refrose mary l (risperiDONE Medicine MD (RISPERDAL) [address] tablet [address] [facility] [Pharmacy Med Name: Yaritza [place] [address] [address] [place] [address] risperiDONE 3 MG Oral [phone] (Wo rk) Tablet]) Social History Tobacco Use [...] MICHAUD) Next scheduled visit: None Powered by [employer], Reference: [id number], 10/28/2019 2:48:42 PM CDT, Pool: MANUEL REFILL ([id number]) documented in this encounter Plan of Treatment Not on filedocumented as of this encounter Visit Diagnoses Not on filedocumented in this encounter Care Teams Cigarette Machine Filler Relationship Specialty Start Date End Date Gagandeep Michaud MD PCP - General 05/17/[address] [place] [address] [place] [address] Vane Zarate Psychiatrist Psychiatry 03/22/12 [facility] Psychotherapist 08/04/17 [facility] Social Sciences Professor 09/13/17 documented as of this encounter
--- OUTSIDE RECORDS SUMMARY | 2022-02-14 10:39 | XMS_ITS | Encounter Summary ---
:1970 Author Organization [employer] Address [address], [place] [address] Care Team Providers Name Role Phone Gagandeep Hinojosa MD Primary Care Provider Reason for Visit Reason Comments FOLLOW-UP,DIABETES Encounter Details Date Type Department Care Team Description 09/24/2019 Care Coord Office Judy Luke RN FOLLOW-UP,DIABETES Visit Medicine [facility] . [place] [address] [place] [phone] [address] Social History Tobacco Use Types Packs/Day Years [...] requesting a return call. Please transfer to [phone]. Unable to reach Rustam after multiple attempts and messages left. Provided contact information and encouraged to call back to review BG readings. documented in this encounter Plan of Treatment Not on filedocumented as of this encounter Visit Diagnoses Not on filedocumented in this encounter Care Teams Transformer Shop Supervisor Relationship Specialty Start Date End Date Gagandeep Hinojosa MD PCP - General 05/17/12 [address] [facility] [place] [address] Vane Zarate Psychiatrist Psychiatry 03/22/12 [facility] Psychotherapist 08/04/17 [facility] [place] Welding Machine Operator 09/13/17 documented as of this encounter
--- OUTSIDE RECORDS SUMMARY | 2022-02-14 10:39 | XMS_ITS | Encounter Summary ---
:1970 Author Organization [employer] Address [address] [place] [address] Care Team Providers Name Role Phone Gagandeep Hinojosa MD Primary Care Provider Reason for Visit Reason Comments Financial Encounter Details Date Type Department Care Team Description 04/08/2020 Care Coord Office Judy Luke RN Financial Visit Medicine [address] [facility] 1415 [facility] . [place] [address] [place] [address] [phone] Social History Tobacco Use Types Packs/Day Years [...] he also needs help with applying his Achieved.coe sensor. Insurance Rustam currently has Medicare, plus [...] Rustam receives all his care at a [facility] facility, he will not be financially responsible [...] Therefore, he would like to apply for [employer] to help with the cost of Tresiba [...] SHARED PLAN: Completed [employer] application. Completed [employer] PAP application. Bring Social Security Benefit letter and fax applications above. Scan BG readings, as directed. Come in to replace Bharath sensors every 14 days. Rustam verbalized understanding and agreed with plan of care and follow up. PLAYER documented in this encounter Plan of Treatment Not on filedocumented as of this encounter Visit Diagnoses Not on filedocumented in this encounter Care Teams Tube Fitter Relationship Specialty Start Date End Date Gagandeep Hinojosa MD PCP - General 05/17/12 1415 [facility] [place] [address] Vane Zarate Psychiatrist Psychiatry 03/22/12 [facility] Mental Health Psychotherapist 08/04/17 [facility] Police Or Patrol Park Officer 09/13/17 documented as of this encounter
--- OUTSIDE RECORDS SUMMARY | 2022-02-14 10:39 | XMS_ITS | Encounter Summary ---
:1970 Author Organization [employer] Address [address] [place] [address] Care Team Providers Name Role Phone Gagandeep Hinojosa MD Primary Care Provider Reason for Visit Procedure/Equipment (Routine) - Incomplete Specialty Diagnoses / Procedures Referred By Contact Refer red To Contact Diagnoses Pain of toe of right foot Gagandeep Hinojosa MD Procedures XR Toe Rt 2nd [address] [place] [address] Referral ID Status Reason Start Date Expiration Date Visits V isits Requested Authorized [id number] Incomplete 03/17/2020 06/16/2021 1 1 Encounter Details Date Type Department Care Team Description 03/17/2020 Ancillary Procedure [place] [facility] Gagandeep Hinojosa Pain of toe of right [address] Dil[address] Rubio MD foot [address] [place] [address] Ave [phone] [place] [address] Social History Tobacco Use Types Packs/Day Years [...] of righ t Results for this VIEWS SIX SIGMA BLACK TRAINER foot procedure are i n the results section. documented in this encounter Results XR Toe Rt 2nd 3 Views (03/17/2020 1:45 PM SIX SIGMA BLACK TRAINER) Anatomical Region Laterality Modality Lower Extremity, Foot, Foot & Ankle Digi ora Radiography Specimen (Source) Anatomical Collection Method Collection Time Re ceived Time Location / / Volume Laterality 03/17/2020 1:34 PM SIX SIGMA BLACK TRAINER Impressions 03/17/2020 2:23 PM SIX SIGMA BLACK TRAINER COMPARISON: ??None. FINDINGS: ??Question impacted second pro [...] limb documented in this encounter Care Teams Rolling Mill Operator Relationship Specialty Start Date End Date Gagandeep Hinojosa MD PCP - General 05/17/12 1415 [place] [address] Vane Zarate Psychiatrsamantha Psychiatry 03/22/12 [facility] Psychotherapist 08/04/17 [facility] Decorator Consultant 09/13/17 documented as of this encounter
--- OUTSIDE RECORDS SUMMARY | 2022-02-14 10:39 | XMS_ITS | Encounter Summary ---
:1970 Author Organization [employer] Address [address], [place] [address] Care Team Providers Name Role Phone Gagandeep Hinojosa MD Primary Care Provider Reason for Visit Reason Comments FOLLOW-UP,DIABETES Encounter Details Date Type Department Care Team Description 11/13/2019 Care Coord Office Judy Luke RN FOLLOW-UP,DIABETES Visit Medicine [facility] . [place] [address] [place] [phone] Social History Tobacco Use Types Packs/Day Years [...] RN - 11/13/2019 11:00 AM CDT RN Spray Worker Visit Pt: Timur Krishnamurthy Referred by: Gagandeep [...] touse his sliding scale, if needed. Diet uRstam continues to try to keep his CHO [...] identified: Finance and Emotional. BG Goals: Health Snf Lab Goal <7 Pre-meal: 70-130 mg/dL PPG: [...] on filedocumented in this encounter Care Teams Cleater Relationship Specialty Start Date End Date Gagandeep Hinojosa MD PCP - General 05/17/12 1415 [facility] [place] [address] Vane Zarate Psychiatrist Psychiatry 03/22/12 [facility] Psychotherapist 08/04/17 [facility] Front Office Attendant 09/13/17 documented as of this encounter
--- OUTSIDE RECORDS SUMMARY | 2022-02-14 10:39 | XMS_ITS | Encounter Summary ---
:1970 Author Organization [employer] Address [address] [address] Care Team Providers Name Role Phone Gagandeep Hinojosa MD Primary Care Provider Reason for Visit Reason Comments FOLLOW-UP,DIABETES Encounter Details Date Type Department Care Team Description 12/04/2019 Care Coord Office Judy Luke RN FOLLOW-UP,DIABETES Visit Medicine [address] [place] [address] . [place] [address] [place] [phone] Social History Tobacco Use Types Packs/Day Years [...] RN - 12/04/2019 10:00 AM CDT FREESTYLE BAHRATH CONTINUOUS GLUCOSE SENSOR (CGM) INITIAL SET UP [...] to review sensor data, glucose patterns. RN Biological Sciences Instructor Visit Pt: Timur Krishnamurthy Referred by: Gagandeep [...] Rustam is over income for Medical Assistance, [employer], as well as, pharmaceutical assistance. Blood Glucose [...] identified: Finance and Emotional. BG Goals: Health Half-Way Lab Goal <7 Pre-meal: 70-130 mg/dL PPG: [...] Primary documented in this encounter Care Teams Instrument Operator Relationship Specialty Start Date End Date Gagandeep Hinojosa MD PCP - General 05/17/12 1415 [facility] [place] [address] Vane aZrate Psychiatrsamantha Psychiatry 03/22/12 [facility] Psychotherapist 08/04/17 [facility] Access Clerk 09/13/17 documented as of this encounter
--- OUTSIDE RECORDS SUMMARY | 2022-02-14 10:39 | XMS_ITS | Encounter Summary ---
:1970 Author [facility] Address [address] [place] [address] Care Team Providers Name Role Phone Gagandeep Hinojosa MD Primary Care Provider Reason for Referral Consult/Transfer Care (Routine) - Closed Specialty Diagnoses / Procedures Referred By Contact Refer red To Contact Diagnoses Uncontrolled type 2 diabetes mellitus with hyperglycemia (HRC) Gagandeep Hinojosa MD [address] [place] [address] Referral ID Status Reason Start Date Expiration Date Visits Requ ested Visits Authorized [id number] Closed 01/22/2020 07/20/2020 1 1 Scheduling Instructions [...] Dx); Romario Rubio MD Warts, genital; 1415 [facility] . [facility] [facility] Uncontrolled type 2 diabetes mellitus with hyperglycemia (HRC) [place] [address] [address] [phone] [place] [address] Social History Tobacco Use Types Packs/Day Years [...] DESTRUCT BENIGN SKIN LESIONS UP TO 14 [id number] 3. Uncontrolled type 2 diabetes mellitus with hyperglycemia ([facility]) E11.65 Optometry Consult-Adult/Peds CHIEF COMPLAINT: Chief Complaint Patient presents with ??? DEPRESSION ??? ANXIETY ??? Growth on penis SUBJECTIVE : Timur Krishnamurthy is an 50 y.o. male who presents for numerous concerns. He is having some increased anxiety because of ongoing divorce process difficulty finding housing. Housing difficulties are mainly financial rather than availability. He is working with his perinatal social worker and his county worker for available facilities. [...] start a video chat service with the [facility] psychiatrists and psychologists, but this is not [...] Diagnosis Date Noted ??? Non-proliferative diabetic retinopathy ([facility]) 05/02/2019 ??? Hyponatremia 01/16/2018 ??? Tinea versicolor 07/18/2015 ??? Tobacco use disorder ([facility]) 10/26/2012 ??? Anemia 05/02/2012 Overview Note: Anemia, unspecified ??? Microalbuminuria 02/04/2012 ??? CA, old ([facility]) 09/16/2011 ??? History of PTCA 09/16/2011 Overview Note: History of PTCA 04/2011 BMS RCA ??? Obesity, Class I, BMI 30-34.9 ([facility]) 09/16/2011 Overview Note: Body mass index is 31.16 kg/(m^2). ??? Hyperlipidemia with target LDL less than 70 06/08/2011 Overview Note: Hyperlipidemia LDL goal < 70 ??? ASHD (arteriosclerotic heart disease) 05/04/2011 ??? Erectile dysfunction 01/22/2011 Overview Note: side effect Risperdal ??? Type 2 diabetes mellitus, uncontrolled ([facility]) 12/11/2010 Overview Note: Type II or unspecified type diabetes mellitus without mention of complication, uncontrolled ([facility]) ??? Dermatophytosis of body 09/04/2010 Class: Historical Overview Note: Tinea Corporis ??? Coronary atherosclerosis 12/22/2009 Overview Note: LW Modifier: mod RCA, negative nuclear stress test ; CAD ??? Nonspecific abnormal results of liver function study 12/22/2009 Overview Note: Liver Function Tests Abnormal ??? Bipolar I disorder ([facility]) 09/15/2005 Overview Note: LW Onset: [id number] ; Bipolar I Dis FAMILY HISTORY OR [...] 200 Strip 3 ??? Continuous Blood Gluc Elastic Attacher Zigzag (TaigenSTYLE TALAT 2 READER SYSTM) ADÁN Use to scan blood sugars per rigging and controls aircraft mechanic instructions. 1 Each 0 ??? Continuous Blood Gluc Sensor (FREESTYLE TALAT 14 DAY SENSOR) [facility] Use as directed. Change every 14 days. [...] 1 Tablet by mouth. 01/16/2018: Received from: [facility] [facility] Received Sig: Take 1 tablet by mouth [...] controlled, fluent Affect: Very neutral Thought content: [place], fixated on finding housing. Thought process: Logical, analytical, but quite fixated on housing Perception: Seems to be appropriate Intellectual capability: Below average Insight: Below average LABS : ASSESSMENT /PLAN ICD-10-CM 1. Anxiety F41.9 busPIRone (BUSPAR) 10 MG tablet 2. Warts, genital A63.0 DESTRUCT BENIGN SKIN LESIONS UP TO 14 [id number] 3. Uncontrolled type 2 diabetes mellitus with [...] (HRC) documented in this encounter Care Teams Spool Carrier Relationship Specialty Start Date End Date Gagandeep Hinojosa MD PCP - General 05/17/[address] [place] [address] Vane Zarate Psychiatrist Psychiatry 03/22/12 [facility] Psychotherapist 08/04/17 [facility] Amortization Clerk 09/13/17 documented as of this encounter
--- OUTSIDE RECORDS SUMMARY | 2022-02-14 10:39 | XMS_ITS | Encounter Summary ---
:1970 Author Organization [employer] Address [address] [place] [address] Care Team Providers Name Role Phone Gagandeep Michaud MD Primary Care Provider Reason for Visit Reason Comments Refill QUEtiapine (SEROQUEL) 200 MG tablet [Pharmacy Med Name: QUETIAPINE FUMARATE 200MG TABS] Encounter Details Date Type Department Care Team Description 03/02/2020 Refill Gagandeep Storm, Rochelle l (QUEtiapine Medicine MD (SEROQUEL) 200 MG tablet [address] [facility] [address] [Pharmacy Med Name: [place] [address] [place] [address] QUETIAPINE FUMARATE [phone] (Wo rk) 200MG TABS]) Social History Tobacco [...] MICHAUD) Next scheduled visit: None Powered by [employer], Reference: [id number], 03/02/2020 10:34:23 AM LABORER GOLF COURSE, Pool: MANUEL MOORE ([id number]) RER GOLF COURSE documented in this encounter Plan of Treatment Not on filedocumented as of this encounter Visit Diagnoses Not on filedocumented in this encounter Care Teams Dairy Processing Equipment Operator Relationship Specialty Start Date End Date Gagandeep Michaud MD PCP - General 05/17/12 [facility]5 [facility] [place] [address] Vane Zarate Psychiatrist Psychiatry 03/22/12 [facility] Psychotherapist 08/04/17 [facility] Plant Care Worker 09/13/17 documented as of this encounter
--- OUTSIDE RECORDS SUMMARY | 2022-02-14 10:39 | XMS_ITS | Encounter Summary ---
:1970 Author Organization [employer] Address [address] [place] [address] Care Team Providers Name Role Phone Gagandeep Hinojosa MD Primary Care Provider Reason for Visit Reason Comments NATHAN HE Encounter Details Date Type Department Care Team Description 01/07/2020 Office Visit [facility] Gagandeep Hinojosa g enital Medicine MD Joanne (Primary Dx) 1415 [facility] . [address] [place] [address] Ave [phone] [place], [place] [address] Social History Tobacco Use [...] acuminatum documented in this encounter Care Teams Medical Genetics Director Relationship Specialty Start Date End Date Gagandeep Hinojosa MD PCP - General 05/17/12 [address] [place] [address] Vane Zarate Psychiatrist Psychiatry 03/22/12 [facility] Psychotherapist 08/04/17 [facility] Territory Business Manager 09/13/17 documented as of this encounter
--- OUTSIDE RECORDS SUMMARY | 2022-02-14 10:39 | XMS_ITS | Encounter Summary ---
:1970 Author Organization [employer] Address [address], [place] [address] Care Team Providers Name Role Phone Gagandeep Hinojosa MD Primary Care Provider Reason for Visit Reason Comments DEPRESSION Encounter Details Date Type Department Care Team Description 01/19/2020 Nurse Triage [facility] Gagandeep Hinojosa MD DEPRESSION [address] [place] [address] [phone] Social History Tobacco Use Types Packs/Day Years [...] (mental health worker, psychiatrist, etc.) Protocols used: [id number] Problem list reviewed as related to this call. documented in this encounter Plan of Treatment Not on filedocumented as of this encounter Visit Diagnoses Not on filedocumented in this encounter Care Teams Home Delivery Driver Relationship Specialty Start Date End Date Gagandeep Hinojosa MD PCP - General 05/17/[address] [place], [place] [address]el[place] [address] Vane Zarate Psychiatrist Psychiatry 03/22/12 [facility] Psychotherapist 08/04/17 [facility] Child Care Education Coordinator 09/13/17 documented as of this encounter
--- OUTSIDE RECORDS SUMMARY | 2022-02-14 10:39 | XMS_ITS | Encounter Summary ---
:1970 Author Organization [employer] Address [address], [place] [address] Care Team Providers Name Role Phone Gagandeep Hinojosa MD Primary Care Provider Reason for Visit Reason Comments FOLLOW-UP,DIABETES Encounter Details Date Type Department Care Team Description 10/08/2019 Care Coord Phone Judy Luke R N FOLLOW-UP,DIABETES Medicine [address] [place] [address] . [place] [address] [place] [address] [phone] Social History Tobacco Use Types Packs/Day Years [...] RN - 10/08/2019 2:44 PM CDT RN Shredding Specialist - Diabetes Follow-Up Current diabetes medication regimen: [...] medication arrived. The samples were entered into aCon and verified by Dr Foster. 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 Teach back method used to verify understanding. Shared plan: Continue current insulin and medication regimen, as prescribed. Record foods eaten prior to all BG readings >200. If preprandial BG is >200, add 1 unit for every 50 points over 200. supply teacher Tresiba samples at earliest convenience. Phone follow [...] Primary documented in this encounter Care Teams Specialty Manufacturing Supervisor Relationship Specialty Start Date End Date Gagandeep Hinojosa MD PCP - General 05/17/12 [facility]5 [place] [address] Vane Zarate Psychiatrist Psychiatry 03/22/12 [facility] Mental [facility] Psychotherapist 08/04/17 [facility] Plastics Plater 09/13/17 documented as of this encounter
--- OUTSIDE RECORDS SUMMARY | 2022-02-14 10:39 | XMS_ITS | Encounter Summary ---
:1970 Author Organization [employer] Address [address] [place] [address] Care Team Providers Name Role Phone Gagandeep Hinojosa MD Primary Care Provider Reason for Visit Reason Onset Date Comments Follow-up Phone Visit 01/30/2020 Encounter Details Date Type Department Care Team Description 01/30/2020 Telemedicine [facility] Gagandeep Hinojosa (Primary Dx) Romario Rubio MD [address] [place] [address] Ave [phone] [place] [address] Social History Tobacco Use Types [...] unspecified documented in this encounter Care Teams Social Media Marketing Manager Relationship Specialty Start Date End Date Gagandeep Hinojosa MD PCP - General 05/17/12 [facility]5 [place] [address] Vane Zarate Psychiatrist Psychiatry 03/22/12 [facility] Psychotherapist 08/04/17 [facility] Maintenance Scheduler 09/13/17 documented as of this encounter
--- OUTSIDE RECORDS SUMMARY | 2022-02-14 10:39 | XMS_ITS | Encounter Summary ---
:1970 Author Organization [employer] Address [address], [place] [address] Care Team Providers Name Role Phone Gagandeep Hinojosa MD Primary Care Provider Reason for Visit Reason Comments FOLLOW-UP,DIABETES Encounter Details Date Type Department Care Team Description 12/19/2019 Care Coord Office Judy Luke RN FOLLOW-UP,DIABETES Visit Medicine [facility] [address] [place] [address] [place] [phone] Social History Tobacco Use Types Packs/Day Years [...] RN - 12/19/2019 11:00 AM CDT RN Barrel Rifler Hook Visit Pt: Timur Krishnamurthy Referred by: Gagandeep [...] on filedocumented in this encounter Care Teams Spun Paste Machine Operator Relationship Specialty Start Date End Date Gagandeep Hinojosa MD PCP - General 05/17/[address] [place], [place] [address] [address] Vane Zarate Psychiatrist Psychiatry 03/22/12 [facility] Psychotherapist 08/04/17 [facility] Fish Bait Picker 09/13/17 documented as of this encounter
--- OUTSIDE RECORDS SUMMARY | 2022-02-14 10:39 | XMS_ITS | Encounter Summary ---
:1970 Author Organization [employer] Address [address] [place] [address] Care Team Providers Name Role Phone Gagandeep Hinojosa MD Primary Care Provider Encounter Details Date Type Department Care Team Description 12/04/2019 Lab Visit [facility] Routine general medical exam ination at health care facility (Primary Dx); [address] Type 2 diabetes mellitus wit h diabetic polyneuropathy, with long-term current use of insulin (HRC); [place] [address] Uncontrolled type 2 diabetes mellitus with hyperglycemia ([facility]); [phone] Diabetes mellit us with complication ([facility]); Diabetes mellit us with neurological manifestations, uncontrolled ([facility]); Diabetic polyne uropathy associated with type 2 diabetes mellitus ([facility]); ASHD (arteriosc lerotic heart disease) Social History [...] P athologist Signature Albumin, 351.2 mg/L 12/04/2019 [place] Urine, Random 3:54 PM CDT LABORATORY Creatinine, 106 >20 mg/dL 12/04/2019 [place] Urine, Random 3:54 PM CDT LABORATORY Albumin/Creati 331 (H) <30 mg/g 12/04/2019 [place] nine Ratio, 3:54 PM CDT LABORATORY Urine, Random Specimen Anatomical Collection Method Collection Time Receive d Time (Source) Location / / Volume Laterality Urine Non-blood 12/04/2019 10:10 12/04/2019 Collection / AM CDT 10:10 AM CDT Unknown Gagandeep Hinojosa MD LAB_1 Performing Organization Address [facility]/ZIP Code Phon e Number [facility] [address] [place], [place] [phone] (ABNORMAL) Lipid Panel and Direct LDL(If Needed) - in 3 months (12/04/2019 10:06 AM CDT) Patholo gist Method Time Signature Cholesterol 116 0 - 199 12/04/2019 [place] mg/dL 4:03 PM CDT LABORATORY Triglyceride 137 <=149 12/04/2019 [place] mg/dL 4:03 PM CDT LABORATORY HDL Cholesterol 35 (L) >=40 mg/dL 12/04/2019 [place] 4:03 PM CDT LABORATORY LDL, Calculated 54 <130 mg/dL 12/04/2019 [place] 4:03 PM CDT LABORATORY Non HDL Chol, 81 mg/dL 12/04/2019 [place] Calculated 4:03 PM CDT LABORATORY Cholesterol/HDL 3.3 12/04/2019 [place] Ratio 4:03 PM CDT LABORATORY Hours Fasting 12 12/04/2019 [place] 4:03 PM CDT LABORATORY Specimen Anatomical Collection Method / Collection Time Recei abimael Time (Source) Location / Volume Laterality Blood Venipuncture / 12/04/2019 10:06 0 Unknown AM CDT 10:06 AM CDT Gagandeep Hinojosa MD LAB_1 Performing Organization Address City/[facility]/ZIP Code Phon e Number [facility] [address] [place], [place] [phone] [facility] [address] [place] [phone], [facility] Creatinine / GFR - in 3 months (12/04/2019 10:06 AM CDT) P athologist Signature Creatinine 0.80 0.73 - 12/04/2019 [place] 1.18 mg/dL 4:03 PM CDT LABORATORY GFR, Estimated >60 >60 12/04/2019 [place] mL/min/1.7 4:03 PM CDT LABORATORY 3m2 Specimen Anatomical Collection Method / Collection Time Recei abimael Time (Source) Location / Volume Laterality Blood Venipuncture / 12/04/2019 10:06 0 Unknown AM CDT 10:06 AM CDT Gagandeep Hinojosa MD LAB_1 Performing Organization Address City/[facility]/ZIP Code Phon e Number [facility] [address] [place] [phone] (ABNORMAL) POCT Glycosylated Hemoglobin (HB A1C) - in 3 months (12/04/2019 10:06 AM CDT) Patholo gist Method Time Signature Hemoglobin A1C 11.3 (H) <=5.6 % 12/04/2019 [place] (Rapid) 10:15 AM CDT LABORATORY Specimen Anatomical [...] Gagandeep Hinojosa MD LAB_1 Performing Organization Address [facility] Phon e Number [facility] [address] [place] [phone] Extra Gold/SST Tube (12/04/2019 10:06 AM CDT) [facility] Method Time Signature Extra Specimen 12/04/2019 [place] Gold/SST Tube will be held 12:00 PM CDT LABORATORY Drawn for 5 days Specimen Anatomical Collection Method / Collection Time Recei abimael Time (Source) Location / Volume Laterality Blood Venipuncture / 12/04/2019 10:06 0 Unknown AM CDT 10:06 AM CDT Gagandeep Hinojosa MD LAB_1 Performing Organization Address City/[facility]/ZIP Code Phon e Number [facility] [address] [place] [phone] documented in this encounter Visit Diagnoses Diagnosis Routine [facility] - Primary Routine general medical examination at a [facility] facility Type 2 diabetes mellitus with diabetic [...] diabetes mellitus ([facility]) ASHD (arteriosclerotic heart disease) ([facility]) Coronary atherosclerosis of unspecified type of vessel, [place] or graft documented in this encounter Care Teams Manganese Wheeler Relationship Specialty Start Date End Date Gagandeep Hinojosa MD PCP - General 05/17/12 [address] [place] [address] Vane Zarate Psychiatrist Psychiatry 03/22/12 [facility] Psychotherapist 08/04/17 [facility] Floor Sweeper 09/13/17 documented as of this encounter
--- OUTSIDE RECORDS SUMMARY | 2022-02-14 10:39 | XMS_ITS | Encounter Summary ---
:1970 Author Organization [employer] Address [address], [place] [address] Care Team Providers Name Role Phone Gagandeep Hinojosa MD Primary Care Provider Reason for Visit Reason Comments FOLLOW-UP,DIABETES Encounter Details Date Type Department Care Team Description 10/10/2019 Care Coord Office Judy Luke RN FOLLOW-UP,DIABETES Visit [place] [phone] [address] . [place] [address] [place] [phone] Social History Tobacco Use Types Packs/Day Years [...] encounter Progress Notes Judy Pittman RN - 10/10/2019 11:00 AM CDT RN Assessment Rn Visit Pt: Timur Krishnamurthy Referred by: Gagandeep [...] One Touch Ultra CURRENT GLUCOSE PATTERNS: since 10/08/19 Fastin, 213, 194 Before dinner: 203, 285 Bedtime: 248, 272 Hypoglycemia (previous two weeks): none ASSESSMENT: Due to the COVID-19 pandemic, this visit was completed by telephone. Medication While Rustam's BG readings have improved, he has continued to run high with the majority of his readings >200. I had increased his Tresiba dose 2 units, but Rustam ended up with a severe episode of hypoglycemia at 35. Therefore, Rustam's Tresiba dose was decreased back to 32 units and he denies any further episodes of hypoglycemia. Rustam assures me there have been no major changes to his diet, he is confident that he is accuratelycounting CHO choices in order to use his unit/CHO ratio, and he hasn't been more physically active than usual, so he does not know why his BG decreased so low. I had recommended using a correction factor for any preprandial BG readings >200. I suggested a gradual increase of one unit for every 50 points over 200. Gocesar states he has been using the correction factor, typically eating 3 CHO choices and adding one unit for a BG >200, which is 10 units of Regular insulin on average. I agreed with Rustam's calculations, but noted he has significant insulin resistance and his BG readings indicate hestill needs additional insulin. Because of Rustam's episode of hypoglycemia, I do not recommend increasing his unit/CHO ratio to 4 units per CHO choice. Rather, I recommend increasing his correction factor to 2 units for every 50 points over 200. Rustam agreed and we practiced the calculations using thereadings he provided today. Because Rustam is now transitioning to using Tresiba U200 insulin, I clarified that each click on thenew pen is 2 units vs 1 unit on his previous U100 pen. Blood Glucose Rustam continues to SMBG tid, as directed. I thanked him for providing his readings today. I stressedthe importance of consistent testing, as it is the only way to know if his BG readings are at goal or if he needs additional insulin. Also, testing is essential for safety while taking insulin. Rustam un derstands. Diet Rustam states his diet is very consistent, typically 45-60 grams of CHO per meal. He knows that when he indulged on a Slushi the other evening, it resulted in his BG reading of 272. Rustam is trying to eat more cheese sticks and Salvadorean or light yogurt instead. I reminded Rustam to resume recording the foods he eaten before BG readings >200. Those notes will help him to know which foods cause his BG twan dings to increase and allow him to make adjustments the next time he eat those foods. Rustam agreed. Mental Health Rustam is very happy to report that his psychiatrist, Dr Vane Huff, has agreed to manage his medication, even though she recently retired. He spoke with her yesterday and she did not make any changes to his dosing. Rustam continues to receive Mental Health Case Management and therapy through [facility]. Therefore, Rustam requested to cancel his appt with Dr Darnell coming up on 10/24/19. Hypoglycemia I reviewed how to use Routine 15 again and Rustam reports he has access to glucose tablets at all times now. Follow up Rustam will increase his correction factor to 2 units and continue to record his BG readings. We willfollow up next week, sooner if he experiences [...] covered today: Correction Factor Hyperglycemia BG Monitoring [facility] Edwin received verbal instructions and written materials tailored to his preferred method of learning. Literacy level assessed (as appropriate). Interventions, including teach back, used to verify understanding. SHARED PLAN: Continue Tresiba 32 units daily. If preprandial BG is >200, add 2 units for every 50 points over 200. SMBG as directed, record readings. Phone follow up scheduled on 10/16/19. Rustam to call if symptoms of hypoglycemia or readings < 70 mg/dL. Rustam verbalized understanding and agreed with plan of care and follow up. documented in this encounter Plan of Treatment Not on filedocumented as of this encounter Visit Diagnoses Not on filedocumented in this encounter Care Teams Rn Occupational Health Relationship Specialty Start Date End Date Gagandeep Hinojosa MD PCP - General 05/17/12 [facility] [place] [address] Vane Zarate Psychiatrist Psychiatry 03/22/12 [facility] Psychotherapist 08/04/17 [facility] Chinese Language Professor 09/13/17 documented as of this encounter
--- OUTSIDE RECORDS SUMMARY | 2022-02-14 10:39 | XMS_ITS | Encounter Summary ---
:1970 Author Organization [employer] Address [address] [place] [address] Care Team Providers Name Role Phone Gagandeep Michaud MD Primary Care Provider Reason for Visit Reason Onset Date Comments Refill 09/13/2019 insulin degludec (TR ESIBA FLEXTOUCH) 200 UNIT/ML SOPN Encounter Details Date Type Department Care Team Description 09/13/2019 Refill Gagandeep Storm Refil l (insulin degludec Medicine (TRESIBA FLEXTOUCH) [address] UNIT/ML SOPN) [place] [address] [place] [address] [phone] (Wo rk) Social History Tobacco Use Types [...] MICHAUD) Next scheduled visit: None Powered by Seat 14A, Reference: [id number], 09/13/2019 2:38:57 PM CDT, Pool: MANUEL REFILL ([id number]) Amelia Conway MA - 09/13/2019 2:37 PM [...] insulin documented in this encounter Care Teams Stream Control Officer Relationship Specialty Start Date End Date Gagandeep Michaud MD PCP - General 05/17/12 1415 [facility] [place] [address] Vane Zarate Psychiatrsamantha Psychiatry 03/22/12 [facility] Psychotherapist 08/04/17 [facility] Heading Saw Operator 09/13/17 documented as of this encounter
--- OUTSIDE RECORDS SUMMARY | 2022-02-14 10:39 | XMS_ITS | Encounter Summary ---
:1970 Author Organization [employer] Address [address], [place] [address] Care Team Providers Name Role Phone Gagandeep Hinojosa MD Primary Care Provider Reason for Visit Reason Comments FOLLOW-UP,DIABETES Encounter Details Date Type Department Care Team Description 09/18/2019 Care Coord Office Judy Luke RN FOLLOW-UP,DIABETES Visit [place] [phone] [address] . [place] [address] [place] [phone] Social History Tobacco Use Types Packs/Day Years [...] RN - 09/18/2019 3:00 PM CDT RN Army Senior Officer Visit Pt: Timur Krishnamurthy Referred by: Gagandeep [...] trying to eat more cheese sticks and Kyrgyz or light yogurt instead. I reminded Rustam [...] Mental Health Case Management and therapy through [facility], but needs a new psychiatrist for medication management. Last week we left a message to schedule with a Jimena French provider, but Rustam states he did not receive a return call. We called again today and scheduled a video visit with Dr Darnell on 10/24/19. Rustam states his , Rosetta, will help him install VasSol on his phone and we can practice [...] identified: Finance and Emotional. BG Goals: [facility] Goal <7 Pre-meal: 70-130 mg/dL PPG: [...] on 09/24/19. Scheduled appt with Jimena French [facility] on 10/24/19. Rustam to call if symptoms of hypoglycemia or readings < 70 mg/dL. Rustam verbalized understanding and agreed with plan of care and follow up. documented in this encounter Plan of Treatment Not on filedocumented as of this encounter Visit Diagnoses Not on filedocumented in this encounter Care Teams Network Development Coordinator Relationship Specialty Start Date End Date Gagandeep Hinojosa MD PCP - General 05/17/12 [facility]5 [facility] [place] [address] Vane Zarate Psychiatrsamantha Psychiatry 03/22/12 [facility] Psychotherapist 08/04/17 [facility] Lace And Textiles Restorer 09/13/17 documented as of this encounter
--- OUTSIDE RECORDS SUMMARY | 2022-02-14 10:39 | XMS_ITS | Encounter Summary ---
:1970 Author Organization [employer] Address [address], [place] [address] Care Team Providers Name Role Phone Gagandeep Hinojosa MD Primary Care Provider Reason for Visit Reason Comments FOLLOW-UP,DIABETES Encounter Details Date Type Department Care Team Description 09/10/2019 Care Coord Office Judy Luke RN FOLLOW-UP,DIABETES Visit Medicine [facility] . [place] [address] [place] [phone] Social History Tobacco Use Types Packs/Day Years [...] RN - 09/10/2019 1:00 PM CDT RN Carton Making Machine Operator Visit Pt: Timur Krishnamurthy Referred by: Gagandeep [...] has straight Medicare and Part D through [employer], so he is responsible for the 20% Medicare does not cover, which is expensive. Because his combined annual household income is over $75,000, Rustam is over income for [place] and [facility]. I still feel that Rustam would benefit [...] trying to eat more cheese sticks and Uzbek or light yogurt instead. I reminded Rustam [...] Mental Health Case Management and therapy through [facility], but will need a new psychiatrist. Rustam would like to stay at [facility], if possible. We called [facility] together and were advised that the intake visit must be a video visit, but Rustam does not have the technology for a video visit. The factory expert agrees to message some providers to see [...] identified: Finance and Emotional. BG Goals: [facility] Lab Goal <7 Pre-meal: 70-130 mg/dL PPG: [...] on filedocumented in this encounter Care Teams Media Relations Director Relationship Specialty Start Date End Date Gagandeep Hinojosa MD PCP - General 05/17/12 [facility]5 [place] [address] Vane Zarate Psychiatrist Psychiatry 03/22/12 [facility] Mental Health Psychotherapist 08/04/17 [facility] Staff Development Coordinator Rn 09/13/17 documented as of this encounter
--- OUTSIDE RECORDS SUMMARY | 2022-02-14 10:39 | XMS_ITS | Encounter Summary ---
:1970 Author Organization [employer] Address [address], [place] [address] Care Team Providers Name Role Phone Gagandeep Hinojosa MD Primary Care Provider Reason for Visit Reason Comments FOLLOW-UP,DIABETES Encounter Details Date Type Department Care Team Description 10/03/2019 Care Coord Phone Judy Luke R N FOLLOW-UP,DIABETES Medicine [address] [place] [address] . [place] [address] [place] [address] [phone] Social History Tobacco Use Types Packs/Day Years [...] RN - 10/03/2019 4:32 PM CDT RN Territory Development Manager - Diabetes Follow-Up Current diabetes medication [...] on filedocumented in this encounter Care Teams Cargo Worker Relationship Specialty Start Date End Date Gagandeep Hinojosa MD PCP - General 05/17/12 [address] [place] [address] Vane Zarate Psychiatrist Psychiatry 03/22/12 [facility] Psychotherapist 08/04/17 [facility] Plating Tank Operator 09/13/17 documented as of this encounter
--- OUTSIDE RECORDS SUMMARY | 2022-02-14 10:39 | XMS_ITS | Encounter Summary ---
:1970 Author Organization [employer] Address [address] [place] [address] Care Team Providers Name Role Phone Gagandeep Hinojosa MD Primary Care Provider Reason for Visit Reason Comments NAIL PROBLEM Left great toenail injury Encounter Details Date Type Department Care Team Description 09/20/2019 Office Visit [facility] Antonio Felipe T raumatic avulsion of nail plate of toe, initial encounter (Primary Dx); MedSurg DPM Type 2 diabetes mellitus with peripheral neuropathy (HRC) [address] [place] [address] [place], [place] [phone] (Wo rk) Social History Tobacco Use Types Packs/Day Years Used Date Smoking Tobacco: Former Cigarettes 25 Quit : 08/21/2019 Smokeless Tobacco: Former Qu it: 10/25/2012 Comments: Smoking History Packs/day: Alcohol Use Standard Drinks/Week Comments No 0 (1 standard drink = 0.6 oz pure Alcoho lic Drinks/day: Amount:0; alcohol) Freq:Never; Sex Assigned at Date Recorded Not on file documented as of this encounter Progress Notes Antonio Felipe DPM - 09/20/2019 1:15 PM CDT DATE OF VISIT: 09/20/2019 SUBJECTIVE: Patient presents for initial clinic visit with me. He normally sees Dr. Nino. He does receive nail care from the wound care nurse in [place]. He does have shoes and inserts which she received at [facility]. He presents today for evaluation of his left great toenail. He was seen at [facility] for this. His 1st visit was on September 14, 2019. At that visit, it was noted that there was some onycholysis and that the nail was somewhat cracked. Reassurance was given at that time and no antibiotics were necessary. He then states that on September 14, 2019, he was pulling on his sock and the nail became stuck on the sock and he pulled the nail off. He did have a fair amount of bleeding and presented to [facility]. The chart note from that visit indicates that no nail was present and the nail bed was cauterized. He was given a surgical shoe and sent here for evaluation. No antibiotics were given at that visit. Adverse Drug Reactions: Allergies Allergen Reactions ??? Aripiprazole permanent shaking in left arm ??? Gabapentin Suicidal thoughts Other reaction(s): Other - Describe In Comment Field Suicidal ideation ??? Haloperidol Shock ??? Nitroglycerin Nausea And Vomiting ??? Thiothixene Other, see comments Muscle spasm ??? Trifluoperazine Confusion, heart palpitations ??? Wellbutrin [Bupropion] Anxiety ??? Ziprasidone Tardive dyskinsia Medications: Reviewed. See Medication List in Epic . Review of Systems: Significant for Diabetes Past Medical History: Diagnosis Date ??? Anemia, unspecified 05/02/2012 ??? ASHD (arteriosclerotic heart disease) (HRC) 05/04/2011 ??? Bipolar I Dis NOS #*LW 2 09/15/2005 ??? CAD NOS #*LW 5 12/22/2009 ??? DM #*LW 4 12/22/2009 ??? DM (diabetes mellitus) type II uncontrolled with renal manifestation 01/22/2011 ??? DM (diabetes mellitus) type II uncontrolled with renal manifestation 01/22/2011 ??? DM (diabetes mellitus) type II uncontrolled with renal manifestation 01/22/2011 ??? Dyslipidemia #*LW 3 12/22/2009 ??? Erectile dysfunction 01/22/2011 ??? History of PTCA 04/2011 BMS RCA 09/16/2011 ? ? Hyperlipidemia LDL goal < 70 06/08/2011 ??? Hypertriglyceridemia (HRC) 12/11/2010 ??? LFTs abnormal 02/02/2012 ??? Liver Function Tests Abnormal #*LW 6 12/22/2009 ??? Mass on back 05/02/2012 ??? Microalbuminuria 02/04/2012 ??? Pain Chest Wall #*LW 7 12/22/2009 ??? Plantar wart 05/26/2011 ??? S/P angioplasty with stent 05/26/2011 ??? Tinea Corporis #*LW 8 09/04/2010 ??? Tobacco Abuse #*LW 1 09/29/2002 ??? Type II or unspecified type diabetes mellitus with hyperosmolarity, uncontrolled ([facility]) 12/11/2010 ??? Type II or unspecified type diabetes mellitus without mention of complication, uncontrolled ([facility]) 12/11/2010 Patient Active Problem List Diagnosis Date Noted ??? Non-proliferative diabetic retinopathy ([facility]) 05/02/2019 ??? Hyponatremia 01/16/2018 ??? Tinea versicolor 07/18/2015 ??? Tobacco use disorder ([facility]) 10/26/2012 ??? Anemia 05/02/2012 Overview Note: Anemia, unspecified ??? Microalbuminuria 02/04/2012 ??? FL, old ([facility]) 09/16/2011 ??? History [...] [facility]) ??? Dermatophytosis of body 09/04/2010 Overview Note: Tinea Corporis ??? Coronary atherosclerosis ([facility]) 12/22/2009 Overview Note: LW Modifier: mod RCA, negative nuclear stress test ; CAD ??? Nonspecific abnormal results of liver function study 12/22/2009 Overview Note: Liver Function Tests Abnormal ??? Bipolar I disorder ([facility]) 09/15/2005 Overview Note: LW Onset: 00Hag30 ; Bipolar I Dis OBJECTIVE: DP and PT pulses are palpable. Sensation is diminished to sharp and dull discrimination. There is no pain with subtalar joint or ankle joint range of motion. There is no evidence of ulceration. He does have a black eschar formation noted on the nail bed of his left great toenail. Upon inspection, I am unable to visualize any nail that is present. I did probe the area down to the eponychiumin do not see any nail. He does not have any active drainage and there is no surrounding erythema orodor. He does not have any weakness with muscle testing of the toe. ASSESSMENT: ICD-10-CM 1. Traumatic avulsion of nail plate of toe, initial encounter S91.209A 2. Type 2 diabetes mellitus with peripheral neuropathy (C) E11.42 PLAN: All outside records were reviewed. I discussed with the patient that he does not have a nail that is present. It appears from reading his initial note from [facility] that the nail was loose and then the note 2 days later from [facility] indicating that he had considerable bleeding from a traumatic nail avulsion. I discussed with the patient that I would like him to apply bacitracin and acovering for the next 1 week. If he does develop any type of redness, he will contact us immediately. He does get his nails trimmed at [facility]. All questions answered. The patient was discharged ambulatory and in stable condition. No orders of the defined types were placed in this encounter. No orders of the defined types were placed in this encounter. (This note was created using voice recognition software and may contain some dragger errors) documented in this encounter Plan of Treatment Not on filedocumented as of this encounter Visit Diagnoses Diagnosis Traumatic avulsion of nail plate of toe, initial encounter - Primary Type 2 diabetes mellitus with peripheral neuropathy (C) documented in this encounter Care Teams Drop Worker Relationship Specialty Start Date End Date Gagandeep Hinojosa MD PCP - General 05/17/12 1415 [facility] [place] [address] Vane Zarate Psychiatrist Psychiatry 03/22/12 [facility] Psychotherapist 08/04/17 [facility] Rural Carrier Associate 09/13/17 documented as of this encounter
--- OUTSIDE RECORDS SUMMARY | 2022-02-14 10:39 | XMS_ITS | Encounter Summary ---
:1970 Author Organization [facility] Address [address], [place] [address] Care Team Providers Name Role Phone Gagandeep Hinojosa MD Primary Care Provider Reason for Visit Reason Comments Medication Problems Encounter Details Date Type Department Care Team Description 09/10/2019 Nurse Triage [place] [facility] Gagandeep Hinojosa, Medic ation Problems Medicine 1415 [facility] . [address] [facility] [place] [address] [place] [address] [phone] (Wo rk) Social History Tobacco Use Types [...] (PSC), please warm transfer call to extension [facility] or triage to discuss. If no answer [...] to answer question Protocols used: MEDICATION QUESTION [id number] documented in this encounter Plan of Treatment Not on filedocumented as of this encounter Visit Diagnoses Not on filedocumented in this encounter Care Teams Precision Aircraft Systems Assembler Relationship Specialty Start Date End Date Gagandeep Hinojosa MD PCP - General 05/17/12 0625 [facility] [place] [address] Vane Zarate Psychiatrist Psychiatry 03/22/12 [facility] Mental [facility] Psychotherapist 08/04/17 [facility] Retoucher 09/13/17 documented as of this encounter
--- OUTSIDE RECORDS SUMMARY | 2022-02-14 10:39 | XMS_ITS | Encounter Summary ---
:1970 Author Organization [employer] Address [address] [address] Care Team Providers Name Role Phone Gagandeep Hinojosa MD Primary Care Provider Reason for Visit Reason Comments FOLLOW-UP,DIABETES Encounter Details Date Type Department Care Team Description 04/01/2020 Care Coord Phone Judy Luke R N FOLLOW-UP,DIABETES Medicine [address] [place] [address] [place] [address] [place] [address] [phone] Social History Tobacco Use Types Packs/Day Years [...] RN - 04/01/2020 1:18 PM CST RN Design Engineering Specialist - Diabetes Follow-Up Current diabetes medication [...] insurance, but would apply to providers within [place], and would eliminate his responsibility for the [...] order to apply for [employer] and [employer], as well as left these items on his voicemail because Rustam didn't have any way to write them down, including: ?? Bharath supplies ?? Bag Hanger's License ?? Insurance cards, Medicare AND Part [...] up on 04/08/20, bring documents above. RN Design Engineering Specialist, as needed. Call if sx of hypoglycemia or glucose readings < 70 mg/dL. Rustam verbalized understanding and agreed with plan of care and follow up. IONARY ENGINEER REFRIGERATION documented in this encounter Plan of Treatment Not on filedocumented as of this encounter Visit Diagnoses Diagnosis Uncontrolled type 2 diabetes mellitus wi th diabetic polyneuropathy, with long-term current use of insulin Uncontrolled type 2 diabetes mellitus wi th microalbuminuria, with long-term current use of insulin Plan of Care - Judy Pittman, JOSETTE - 04/01/2020 1:00 PM CST Phone visit IONARY ENGINEER REFRIGERATION documented in this encounter Care Teams Ship Rigger Apprentice Relationship Specialty Start Date End Date Gagandeep Hinojosa MD PCP - General 05/17/12 1415 [facility] [place] [address] Vane Zarate Psychiatrist Psychiatry 03/22/12 [facility] Psychotherapist 08/04/17 [facility] Pipe Fitter Maintenance 09/13/17 documented as of this encounter
--- OUTSIDE RECORDS SUMMARY | 2022-02-14 10:39 | XMS_ITS | Encounter Summary ---
:1970 Author Organization [employer] Address [address] [place] [address] Care Team Providers Name Role Phone Ggaandeep Hinojosa MD Primary Care Provider Reason for Visit Reason Comments APPOINTMENT REQUEST Encounter Details Date Type Department Care Team Description 02/26/2020 Care Coord Phone Judy Luke R N APPOINTMENT REQUEST Medicine 1415 [facility] 1415 [facility] . [place] [address] [place] [phone] Social History Tobacco Use Types Packs/Day Years [...] with selecting a supplemental plan. Rustam agreed. DEVELOPER Judy Pittman RN - 02/26/2020 11:52 AM CST Rustam did not show for his DM follow up appt with Dr Hinojosa and myself today. I left a detailed message requesting he call back to reschedule, as we need to complete his application for [employer] and call the Senior Linkage Line to search for a Medicare supplemental plan. I stressed that both of these applications are time sensitive. DEVELOPER documented in this encounter Plan of Treatment Not on filedocumented as of this encounter Visit Diagnoses Not on filedocumented in this encounter Care Teams Communication Equipment Repairer Relationship Specialty Start Date End Date Gagandeep Hinojosa MD PCP - General 05/17/[address] [place], [place] [address] [address] Vane Zarate Psychiatrist Psychiatry 03/22/12 [facility] Psychotherapist 08/04/17 [facility] Pharmacist Helper 09/13/17 documented as of this encounter
--- OUTSIDE RECORDS SUMMARY | 2022-02-14 10:39 | XMS_ITS | Encounter Summary ---
:1970 Author Organization [place] [facility] ClassifiedsUnm [facility] Medical CenterThe Networking Effect Address [address], [place] [address] Care Team Providers Name Role Phone Gagandeep Hinojosa MD Primary Care Provider Reason for Visit Reason Comments Appointment Encounter Details Date Type Department Care Team Description 01/01/2020 Telephone [facility] Gagandeep Hinojosa MD Appointment 1415 [facility] . 1415 [facility] [place] [address] [place] [address] [phone] (Wo rk) Social History Tobacco Use Types [...] message for patient to return call to [phone]. Carolyn Johnson - 01/01/2020 3:58 PM CDT [...] on filedocumented in this encounter Care Teams Car Racer Relationship Specialty Start Date End Date Gagandeep Hinojosa MD PCP - General 05/17/[address] [place] [address] [place] [address] Vane Zarate Psychiatrist Psychiatry 03/22/12 [facility] Psychotherapist 08/04/17 [facility] Dip Lube Operator 09/13/17 documented as of this encounter
--- OUTSIDE RECORDS SUMMARY | 2022-02-14 10:39 | XMS_ITS | Encounter Summary ---
:1970 Author Organization [employer] Address [address] [place] [address] Care Team Providers Name Role Phone Gagandeep Michaud MD Primary Care Provider Reason for Visit Reason Comments Refill QUEtiapine (SEROQUEL) 200 MG tablet [Pharmacy Med Name: QUEtiapine Fumarate 200 MG Oral Tablet] Encounter Details Date Type Department Care Team Description 12/10/2019 Refill Gagandeep Storm, Rochelle l (QUEtiapine Medicine (SEROQUEL) 200 MG tablet [address] 1415 [facility] [Pharmacy Med Name: KATIANA Vigil [address] [place] VIGIL [address] QUEtiapine Fumarate 200 [phone] (Wo rk) MG Oral Tablet]) Social History [...] MICHAUD) Next scheduled visit: None Powered by [email or web address], Reference: [id number], 12/10/2019 5:31:41 AM CDT, Pool: MANUEL MOORE ([id number]) documented in this encounter Plan of Treatment Not on filedocumented as of this encounter Visit Diagnoses Not on filedocumented in this encounter Care Teams Manufacturing Accountant Relationship Specialty Start Date End Date Gagandeep Michaud MD PCP - General 05/17/12 [facility]5 [facility] [place] Gerber [address] Vane Zarate Psychiatrist Psychiatry 03/22/12 [facility] Psychotherapist 08/04/17 [facility] Shoe Stitcher Odd 09/13/17 documented as of this encounter
--- OUTSIDE RECORDS SUMMARY | 2022-02-14 10:39 | XMS_ITS | Encounter Summary ---
:1970 Author Organization [employer] Address [address], [place] [address] Care Team Providers Name Role Phone Gagandeep Hinojosa MD Primary Care Provider Reason for Visit Reason Comments FOLLOW-UP,DIABETES Encounter Details Date Type Department Care Team Description 10/16/2019 Care Coord Office Judy Luke RN FOLLOW-UP,DIABETES Visit [place] [id number] [address] . K[place] Hernandez [address] KATIANA VELAZQUEZ [phone] Social History Tobacco Use Types Packs/Day Years [...] RN - 10/16/2019 11:00 AM CDT RN Zipper Setter Visit Pt: Timur Krishnamurthy Referred by: Gagandeep [...] trying to eat more cheese sticks and Citizen Of [place] or light yogurt for snacks. I reminded [...] on filedocumented in this encounter Care Teams Hand Endband Cutter Relationship Specialty Start Date End Date Gagandeep Hinojosa MD PCP - General 05/17/[address] [place] [address] Vane Zarate Psychiatrist Psychiatry 03/22/12 [facility] Psychotherapist 08/04/17 [facility] Rice Field Worker 09/13/17 documented as of this encounter
--- OUTSIDE RECORDS SUMMARY | 2022-02-14 10:40 | XMS_ITS | Encounter Summary ---
:1970 Author Organization [employer] Address [address] [place] [address] Care Team Providers Name Role Phone Gagandeep Hinojosa MD Primary Care Provider Reason for Referral Consult/Transfer Care (Routine) - Closed Specialty Diagnoses / Procedures Referred By Contact Refer red To Contact Diagnoses Type 2 diabetes mellitus with diabetic polyneuropathy, with long-term current use of insulin (HRC) Gagandeep Hinojosa MD 1412 [facility] [place] VIGIL [address] Referral ID Status Reason Start Date Expiration Date Visits Requ ested Visits Authorized [id number] Closed 08/28/2019 11/26/2020 1 1 Scheduling Instructions Your provider has recommended an appoint ment with [facility]. You may call [phone] to schedule your appoi ntment. If you [...] Rubio MD Bipolar I disorder (HRC); [address] 1415 [facility] Tobacco use disorder; KATIANA Vigil [address] A[place]vira Drug-induced tremor; [phone] KATIANA VIGIL Essential hyper tension; [address] Non-proliferative diabetic retinopathy ( [facility]); [phone] ASHD (arteriosc lerotic heart disease); (Work) Uncontrolled type 2 diabetes mellitus wi th hyperglycemia ([facility]); [phone] Diabetes carlos montes with complication ([facility]); (Fax) Diabetes carlos montes with neurological manifestations, uncontrolled (HR); Diabetic polyne uropathy associated with type 2 diabetes mellitus ([facility]) Social History Tobacco Use Types Packs/Day Years [...] P athologist Signature Albumin, 351.2 mg/L 12/04/2019 [facility] Urine, Random 3:54 PM CDT LABORATORY Creatinine, 106 >20 mg/dL 12/04/2019 [facility] Urine, Random 3:54 PM CDT LABORATORY Albumin/Creati 331 (H) <30 mg/g 12/04/2019 [facility] nine Ratio, 3:54 PM CDT LABORATORY Urine, Random Specimen Anatomical Collection Method Collection Time Receive d Time (Source) Location / / Volume Laterality Urine Non-blood 12/04/2019 10:10 12/04/2019 Collection / AM CDT 10:10 AM CDT Unknown Gagandeep Hinojosa MD LAB_1 Performing Organization Address City/[facility]/ZIP Code Phon e Number [facility] [address] [place] [address] (ABNORMAL) Lipid Panel and Direct LDL(If Needed) - in 3 months (12/04/2019 10:06 AM CDT) Patholo gist Method Time Signature Cholesterol 116 0 - 199 12/04/2019 [facility] mg/dL 4:03 PM CDT LABORATORY Triglyceride 137 <=149 12/04/2019 [facility] mg/dL 4:03 PM CDT LABORATORY HDL Cholesterol 35 (L) >=40 mg/dL 12/04/2019 [facility] 4:03 PM CDT LABORATORY LDL, Calculated 54 <130 mg/dL 12/04/2019 [facility] 4:03 PM CDT LABORATORY Non HDL Chol, 81 mg/dL 12/04/2019 [facility] Calculated 4:03 PM CDT LABORATORY Cholesterol/HDL 3.3 12/04/2019 [facility] Ratio 4:03 PM CDT LABORATORY Hours Fasting 12 12/04/2019 [facility] 4:03 PM CDT LABORATORY Specimen Anatomical Collection Method / Collection Time Recei abimael Time (Source) Location / Volume Laterality Blood Venipuncture / 12/04/2019 10:06 0 Unknown AM CDT 10:06 AM CDT Gagandeep Hinojosa MD LAB_1 Performing Organization Address City/State/ZIP Code Phon e Number [facility] [address] [place] [address] [facility] [address] [place] [address], [place] Creatinine / GFR - in 3 months (12/04/2019 10:06 AM CDT) P athologist Signature Creatinine 0.80 0.73 - 12/04/2019 [facility] 1.18 mg/dL 4:03 PM CDT LABORATORY GFR, Estimated >60 >60 12/04/2019 [facility] mL/min/1.7 4:03 PM CDT LABORATORY 3m2 Specimen Anatomical Collection Method / Collection Time Recei abimael Time (Source) Location / Volume Laterality Blood Venipuncture / 12/04/2019 10:06 0 Unknown AM CDT 10:06 AM CDT Gagandeep Hinojosa MD LAB_1 Performing Organization Address [facility] Code [facility] e Number [facility] [address] [place] [address] (ABNORMAL) POCT Glycosylated Hemoglobin (HB A1C) - in 3 months (12/04/2019 10:06 AM CDT) Patholo gist Method Time Signature Hemoglobin A1C 11.3 (H) <=5.6 % 12/04/2019 [facility] (Rapid) 10:15 AM CDT LABORATORY Specimen Anatomical Collection Method / Collection Time Recei abimael Time (Source) Location / Volume Laterality Blood Venipuncture / 12/04/2019 10:06 0 Unknown AM CDT 10:06 AM CDT Narrative [facility] - 12/04/2019 10:15 A M CDT This Rapid A1c test is designed for charlotte toring patients with an established diagnosis of diabetes mellitus. This rapid method is not suitable to establish the initial diagnosis of diabetes mellitus. Performe d using Point of Care Instrumentation. Gagandeep Hinojosa MD LAB_1 Performing Organization Address City/[facility]/ZIP Code [facility] e Number [facility] [address] [place] [address] documented in this encounter Visit Diagnoses Diagnosis [...] Coronary atherosclerosis of unspecified type of vessel, ho-chunk or graft Uncontrolled type 2 diabetes mellitus [...] (HRC) documented in this encounter Care Teams Machining Engineer Relationship Specialty Start Date End Date Gagandeep Hinojosa MD PCP - General 05/17/[address] [place] [address] [place] [address] Vane Zarate Psychiatrist Psychiatry 03/22/12 [facility] Psychotherapist 08/04/17 [facility] Bargeman 09/13/17 documented as of this encounter
--- OUTSIDE RECORDS SUMMARY | 2022-02-14 10:40 | XMS_ITS | Encounter Summary ---
:1970 Author Organization [employer] Address [address] [place] [address] Care Team Providers Name Role Phone Gagandeep Michaud MD Primary Care Provider Reason for Visit Reason Comments Refill metFORMIN (GLUCOPHAGE) 500 M G tablet [Pharmacy Med Name: metFORMIN HCl 500 MG Oral Tablet] Encounter Details Date Type Department Care Team Description 05/21/2019 Refill [facility] Gagandeep Michaud, Refil l (metFORMIN Medicine MD (GLUCOPHAGE) [address] tablet [[place] [address] [place] [id number] Name: metFORMIN HCl 500 [phone] (Wo rk) MG Oral Tablet]) Social History [...] TABLETS BY MOUTH TWICE DAILY WITH MEALS STOCK RANCHER Interface, Out Onehub Prov Query - 05/21/2019 5:31 AM CST [...] (Sent to PC REFILL LAB) Powered by [employer], Reference: [id number], 05/21/2019 5:31:48 AM ELKIN, Jaxon: MANUEL REFILL ([id number]) STOCK RANCHER documented in this encounter Plan of Treatment Not on filedocumented as of this encounter Visit Diagnoses Diagnosis Uncontrolled type 2 diabetes mellitus wi thout complication, without long-term current use of insulin documented in this encounter Care Teams C Software Developer Relationship Specialty Start Date End Date Gagandeep Michaud MD PCP - General 05/17/12 [facility]5 [facility] [place] Gerber [address] Vane Zarate Psychiatrsamantha Psychiatry 03/22/12 [facility] Mental [facility] Psychotherapist 08/04/17 [facility] Floor Tech 09/13/17 documented as of this encounter
--- OUTSIDE RECORDS SUMMARY | 2022-02-14 10:40 | XMS_ITS | Encounter Summary ---
:1970 Author Organization [employer] Address [address] [address] Care Team Providers Name Role Phone Gagandeep Michaud MD Primary Care Provider Reason for Visit Reason Onset Date Comments Refill 08/14/2019 busPIRone (BUSPAR) 1 0 MG tablet Encounter Details Date Type Department Care Team Description 08/14/2019 Refill [facility] Gagandeep Michaud, Refil l (busPIRone Medicine (BUSPAR) 10 MG tablet) 1415 [facility] . [address] [place] [address] [place], [place] [address] (Wo rk) Social History Tobacco Use Types [...] Notes Interface, Out Surescripts Prov Query - 08/14/2019 4:21 PM CDT QUEtiapine (SEROQUEL) 200 MG tablet Medication started: 07/09/2016 Last ordered by UNKNOWN, PHYSICIAN: 01/10/2018 (581 days ago as Historical on 01/16/2018 by LULI JUSTIN), Sig: take 200 mg by mouth daily at bedtime. (changed) -> The requested medication was previously set to Historical. -> The requested sig has changed from the last order. -> Medication cannot be delegated. Last qualifying visit: 06/21/2019 (with GAGANDEEP MICHAUD) Next scheduled visit: 08/28/2019 (in Family Practice) Powered by [employer], Reference: [id number], 08/14/2019 4:21:05 PM CDT, Pool: MANUEL MOORE ([id number]) documented in this encounter Plan of Treatment Not on filedocumented as of this encounter Visit Diagnoses Not on filedocumented in this encounter Care Teams Photographers' Model Relationship Specialty Start Date End Date Gagandeep Michaud MD PCP - General 05/17/12 [facility] [place] Ger[place] [address] Vane Zarate Psychiatrist Psychiatry 03/22/12 [facility] Psychotherapist 08/04/17 [facility] Thermite Bomb Loader 09/13/17 documented as of this encounter
--- OUTSIDE RECORDS SUMMARY | 2022-02-14 10:40 | XMS_ITS | Encounter Summary ---
:1970 Author Organization [employer] Address [address] [place] [address] Care Team Providers Name Role Phone Gagandeep Hinojosa MD Primary Care Provider Reason for Visit Reason Comments DM/VASC/HTN Registry Call 1 Encounter Details Date Type Department Care Team Description 04/19/2019 Telephone [facility] Gagandeep Hinojosa, DM/VA SC/HTN Registry Medicine MD Call 1 1415 [facility] . [address] [place] [address] [place], [place] [address] (Wo rk) Social History Tobacco Use Types [...] and left detailed msg below, giving patient [phone] to call and schedule labs. Joelle Carrasquillo MA 3:43 PM 04/19/2019 COPY EXAMINER Abel Novak MA - 04/19/2019 2:37 PM CST Pt is overdue for diabetes labs, please call and make pt a lab only appt.Pt does not need to be fasting unless they are do for Chol and would like too. COPY EXAMINER documented in this encounter Plan of Treatment Not on filedocumented as of this encounter Visit Diagnoses Not on filedocumented in this encounter Care Teams Machinist Helper Relationship Specialty Start Date End Date Gagandeep Hinojosa MD PCP - General 05/17/[address] [place] [address] KATIANA Gerber [address] Vane Zarate Psychiatrist Psychiatry 03/22/12 [facility] Psychotherapist 08/04/17 [facility] Network Administrator 09/13/17 documented as of this encounter
--- OUTSIDE RECORDS SUMMARY | 2022-02-14 10:40 | XMS_ITS | Encounter Summary ---
:1970 Author Organization [employer] Address [address] [address] Care Team Providers Name Role Phone Gagandeep Hinojosa MD Primary Care Provider Reason for Referral (Routine) - Closed Specialty Diagnoses / Procedures Referred By Contact Refer red To Contact Diagnoses Chest pain, unspecified type Zara Fox MD Procedures Outreach Nuclear Study [address] [employer] [place], [place] [address] Referral ID Status Reason Start Date Expiration Date Visits Requ ested Visits Authorized [id number] Closed 06/19/2019 09/17/2020 1 1 ER AND FITTER Encounter Details Date Type Department Care Team Description 06/18/2019 Hospital Encounter Heart & Vascular Chest pain, unspecified Center Nuclear type (Primary Dx) Cardiology [address] [employer] [place] [address] Social History Tobacco Use Types [...] by mouth 0 12/2408/28/2019 MG capsule daily. [place] Carbonate 600 Take 600 mg by mouth [...] 50,000 Units by 0 11/01/2018 0210/2019 Ergocalciferol, [address]80 mouth. units CAPS documented as of this encounter Procedure Notes Zayra Jamison - 06/18/2019 12:00 PM CSTAssociated Order(s): OUTREACH NUCLEAR STUDY Results NM CARDIAC MPI STRESS TEST ( (Order [id number]) STRESS TEST PHARMACOLOGICAL ( (Order [id number]) Original Order Diagnosis: Chest pain [R07.9 (ICD-10-CM)] Chest pain, acute, nonspecific Chest pain, acute, nonspecific Reading Provider(s) Cliff Weinstein DO PACs images are not viewable in [employer] Link. See text report below. STRESS TEST PHARMACOLOGICALOrder: [id number] Status: Final result Visible to patient: No (Not Released) Next appt: None Dx: Chest pain Linked study orders: NM CARDIAC MPI STRESS TEST (Order: [id number]) Details Reading Physician Reading Date Result Priority [...] patient. Patient Information Patient Name Timur Krishnamurthy ([id number]) Sex Male ER AND FITTER documented in this encounter Plan of Treatment Not on filedocumented as of this encounter Procedures Procedure Name Priority Date/Time Associated Diagnosis Comme nts OUTREACH NUCLEAR Routine 06/18/2019 12:00 PM Chest pain, Resu lts for this STUDY WELDER AND FITTER unspecified type procedure a re in the results section. documented in this encounter Results Outreach Nuclear Study (06/18/2019 12:00 PM WELDER AND FITTER) Narrative POCT - 06/18/2019 12:00 PM WELDER AND FITTER Zayra Jamison ? 06/20/2019 11:21 AM Results NM CARDIAC MPI STRESS TEST ( [id number]) (Order [id number]) STRESS TEST PHARMACOLOGICAL (Accession A [id number]) (Order [id number]) Original Order Diagnosis: Chest pain [R07.9 (ICD-10-CM)] ??Chest p ain, acute, nonspecific Chest pain, acute, nonspecific Reading Provider(s) Cliff Weinstein DO PACs images are not viewable in [employer] Link. See text report below. STRESS TEST PHARMACOLOGICALOrder: [id number] Status: Final result ?? Visible to patie nt: No (Not Released) Next appt: None Dx: Chest pain Linked study orders: NM CARDIAC MPI STRE SS TEST (Order: [id number]) Details Reading Physician Reading Date Result Pr [...] humphrey. Patient Information Patient Name Timur Krishnamurthy ([id number]) Sex Male Procedure Note Zayra Jamison M - 06/18/2019 12:[address] Results NM CARDIAC MPI STRESS TEST ( [id number]) (Order [id number]) STRESS TEST PHARMACOLOGICAL (Accession A [id number]) (Order [id number]) Original Order Diagnosis: Chest pain [R07.9 (ICD-10-CM)] Chest sesar n, acute, nonspecific Chest pain, acute, nonspecific Reading Provider(s) Cliff Weinstein DO PACs images are not viewable in [employer] Link. See text report below. STRESS TEST PHARMACOLOGICALOrder: [id number] Status: Final result Visible to patient: No (Not Released) Next appt: None Dx: Chest pain Linked study orders: NM CARDIAC MPI STRE SS TEST (Order: [id number]) Details Reading Physician Reading Date Result Pr [...] humphrey. Patient Information Patient Name Timur Krishnamurthy ([id number]) Sex Male Zara Fox MD PN CARDIAC SERVICES ORDERABL ES Performing Organization Address City/State/ZIP Code Phon e Number POCT documented in this encounter Visit Diagnoses Diagnosis Chest pain, unspecified type - Primary documented in this encounter Care Teams Spike Machine Feeder Relationship Specialty Start Date End Date Gagandeep Hinojosa MD PCP - General 05/17/[address] [place] [address] Vane Zarate Psychiatrsamantha Psychiatry 03/22/12 [facility] Psychotherapist 08/04/17 [facility] Analytical Research Chemist 09/13/17 documented as of this encounter
--- OUTSIDE RECORDS SUMMARY | 2022-02-14 10:40 | XMS_ITS | Encounter Summary ---
:1970 Author Organization [facility] Address [address], [place] [address] Care Team Providers Name Role Phone Gagandeep Hinojosa MD Primary Care Provider Reason for Visit Reason Comments Post Hospital Discharge Follow Up Encounter Details Date Type Department Care Team Description 06/19/2019 Telephone [place] [facility] Gagandeep Hinojosa, Post Hospital Discharge Medicine MD Follow Up 1415 [facility] . [address] [place] [address] [place] [address] [phone] (Wo rk) Social History Tobacco Use Types [...] follow up call completed. See doc flowsheet: HOSGA for details. NOMETER ADJUSTER documented in this encounter Plan of Treatment Not on filedocumented as of this encounter Visit Diagnoses Not on filedocumented in this encounter Care Teams Environmental Health Officer Relationship Specialty Start Date End Date Gagandeep Hinojosa MD PCP - General 05/17/12 [address]15 [place] [address] Vane Zarate Psychiatrist Psychiatry 03/22/12 [facility] Mental [facility] Psychotherapist 08/04/17 [facility] Codifier 09/13/17 documented as of this encounter
--- OUTSIDE RECORDS SUMMARY | 2022-02-14 10:40 | XMS_ITS | Encounter Summary ---
:1970 Author Organization [employer] Address [address] [place] [address] Care Team Providers Name Role Phone Gagandeep Hinojosa MD Primary Care Provider Reason for Visit Reason Comments Lab Questions Encounter Details Date Type Department Care Team Description 12/11/2018 Telephone [facility] Gagandeep Hinojosa MD Lab Questions 1415 [facility] . 1415 [facility] [place] [address] [place] [address] [phone] (Wo rk) Social History Tobacco Use Types [...] (Advise caller/patient can view test results in [employer], if enrolled) What test are you calling about? A1C from 11/28/18. Primary Parts Technician: Gagandeep Hinojosa MD Who ordered the test? (include first & last name) Gagandeep Hinojosa MD When and where was the test done? 11/28/18 - [facility] Additional comments (related to the above concern): [...] on filedocumented in this encounter Care Teams Storekeeper Helper Relationship Specialty Start Date End Date Gagandeep Hinojosa MD PCP - General 05/17/12 1415 [facility] [place] Gerber [address] Vane Zarate Psychiatrsamantha Psychiatry 03/22/12 [facility] Psychotherapist 08/04/17 [facility] Pelts Skinner 09/13/17 documented as of this encounter
--- OUTSIDE RECORDS SUMMARY | 2022-02-14 10:40 | XMS_ITS | Encounter Summary ---
:1970 Author Organization [employer] Address [address] [address] Care Team Providers Name Role Phone Gagandeep Michaud MD Primary Care Provider Reason for Visit Reason Onset Date Comments Refill 08/14/2019 busPIRone (BUSPAR) 1 0 MG tablet Encounter Details Date Type Department Care Team Description 08/14/2019 Refill [facility] Gagandeep Michaud, Rochelle l (busPIRone Medicine (BUSPAR) 10 MG tablet) 1415 [facility] . 1415 [place] [address] [place], [place] [address] (Wo rk) Social History Tobacco Use Types [...] 85 mm Hg on 06/21/2019 Powered by [employer], Reference: [id number], 08/14/2019 4:19:51 PM CDT, Pool: MANUEL MOORE ([id number]) documented in this encounter Plan of Treatment Not on filedocumented as of this encounter Visit Diagnoses Not on filedocumented in this encounter Care Teams Venetian Blind Machine Operator Relationship Specialty Start Date End Date Gagandeep Michaud MD PCP - General 05/17/12 [facility]5 [facility] [address] Vane Zarate Psychiatrist Psychiatry 03/22/12 [facility] Psychotherapist 08/04/17 [facility] Grain Mill Worker 09/13/17 documented as of this encounter
--- OUTSIDE RECORDS SUMMARY | 2022-02-14 10:40 | XMS_ITS | Encounter Summary ---
:1970 Author Organization [employer] Address [address] [address] Care Team Providers Name Role Phone Gagandeep Hinojosa MD Primary Care Provider Reason for Visit Reason Comments Post Hospital Discharge Follow Up Encounter Details Date Type Department Care Team Description 12/22/2018 [facility] Hinojosa, Post Hospital Discharge Medicine MD Follow Up 1415 [facility] . [address] [place] [address] [place] [address] [phone] (Wo rk) Social History Tobacco Use Types [...] message to call back to nurse line #[phone] Aniyah Guillen - 12/22/2018 11:48 AM CDT Pt returning call. Told him about message below and informed him he will be getting a call back Danelle Garcia RN - 12/22/2018 11:36 AM CDT Called patient for post discharge follow up, no answer. Unable to leave voicemail for patient, will attempt to call patient again. Admitted to [facility] 12/20 for intentional acute drug overdose. No new meds. Stopped buspirone, quetiapine, and risperidone. Has f/u appt 12/26. documented in this encounter Plan of Treatment Not on filedocumented as of this encounter Visit Diagnoses Not on filedocumented in this encounter Care Teams Lime Supervisor Relationship Specialty Start Date End Date Gagandeep Hinojosa MD PCP - General 05/17/12 1415 [facility] [place] [address] Vane Zarate Psychiatrist Psychiatry 03/22/12 [facility] Mental Health Psychotherapist 08/04/17 [facility] Hair Rooting Machine Operator 09/13/17 documented as of this encounter
--- OUTSIDE RECORDS SUMMARY | 2022-02-14 10:40 | XMS_ITS | Encounter Summary ---
:1970 Author Organization [facility] Address [address] [place] [address] Care Team Providers Name Role Phone Gagandeep Hinojosa MD Primary Care Provider Reason for Visit Reason Comments Disease Registry Encounter Details Date Type Department Care Team Description 02/28/2019 [facility] G[facility]ep Hinojosa MD Disease Registry 1415 [facility] . 14[address] [place] [address] [place] [address] [phone] (Wo rk) Social History Tobacco Use Types [...] FOR PT TO CALL BACK TO SCHEDULE [phone] CTOR OF RETAIL OPERATIONS Isaías Blair LPN - 02/28/2019 2:23 PM CST Patient is overdue for Diabetes Mellitus labs please call and make a lab only appointment CTOR OF RETAIL OPERATIONS documented in this encounter Plan of Treatment Not on filedocumented as of this encounter Visit Diagnoses Not on filedocumented in this encounter Care Teams Assistant Housekeeping Manager Relationship Specialty Start Date End Date Gagandeep Hinojosa MD PCP - General 05/17/12 1415 [facility] [place] [address] Vane Zarate Psychiatrist Psychiatry 03/22/12 [facility] Mental Health Psychotherapist 08/04/17 [facility] Rolled Ham Lacer 09/13/17 documented as of this encounter
--- OUTSIDE RECORDS SUMMARY | 2022-02-14 10:40 | XMS_ITS | Encounter Summary ---
:1970 Author Organization [employer] Address [address] [place] [address] Care Team Providers Name Role Phone Gagandeep Michaud MD Primary Care Provider Encounter Details Date Type Department Care Team Description 05/21/2019 Refill Order [place] [facility] Gagandeep Michaud MD 1415 [facility] . 1415 [facility] [place] [address] [place] [address] [phone] (Wo rk) Social History Tobacco Use Types [...] Labs to be addressed at future visit. SHAPER TOP Interface, Out Surescripts Prov Query - 05/21/2019 5:31 AM CST SCHEDULE THE FOLLOWING: - HBA1C (PN ONLY) BY: Now (Due as of 02/26/2019 for metFORMIN (GLUCOPHAGE) 500 MG tablet) - LAST QUALIFYING VISIT WITH GAGANDEEP MICHAUD: 05/02/2019 - NEXT SCHEDULED VISIT: None - NEXT LAB APPOINTMENT: None Powered by [employer], Reference: [id number], 05/21/2019 5:31:49 AM Jaxon GRANGER: MANUEL MOORE ([id number]) SHAPER TOP documented in this encounter Plan of Treatment Not on filedocumented as of this encounter Visit Diagnoses Diagnosis Encounter for long-term (current) use of medications - Primary Encounter for long-term (current) use of other medications documented in this encounter Care Teams Dock Clerk Relationship Specialty Start Date End Date Gagandeep Michaud MD PCP - General 05/17/12 1415 [facility] [place] [address] Vane Zarate Psychiatrist Psychiatry 03/22/12 [facility] Health Psychotherapist 08/04/17 [facility] Ceo 09/13/17 documented as of this encounter
--- OUTSIDE RECORDS SUMMARY | 2022-02-14 10:40 | XMS_ITS | Encounter Summary ---
:1970 Author Organization [employer] Address [address] [address] Care Team Providers Name Role Phone Gagandeep Hinojosa MD Primary Care Provider Reason for Visit Reason Comments FOLLOW-UP,DIABETES Encounter Details Date Type Department Care Team Description 08/29/2019 Care Coord Phone Judy Luke R N FOLLOW-UP,DIABETES Medicine [address] [place] [address] . [place] [address] [place] [address] [phone] Social History Tobacco Use Types Packs/Day Years [...] RN - 09/03/2019 2:01 PM CDT RN Convertible Top Installer - Diabetes Follow-Up Current diabetes medication regimen: [...] requesting a return call. Please transfer to [phone]. documented in this encounter Plan of Treatment Not on filedocumented as of this encounter Visit Diagnoses Not on filedocumented in this encounter Care Teams Car Sander Relationship Specialty Start Date End Date Gagandeep Hinojosa MD PCP - General 05/17/[address] [place] [address] [place] [address] Vane Zarate Psychiatrist Psychiatry 03/22/12 [facility] Psychotherapist 08/04/17 [facility] Tool And Cutter Grinder 09/13/17 documented as of this encounter
--- OUTSIDE RECORDS SUMMARY | 2022-02-14 10:40 | XMS_ITS | Encounter Summary ---
:1970 Author Organization [facility] Address [address] [place] [address] Care Team Providers Name Role Phone Gagandeep Hinojosa MD Primary Care Provider Reason for Visit Reason Comments Medication Request Encounter Details Date Type Department Care Team Description 08/31/2019 [facility]phone [facility] Gagandeep Hinojosa, Medication Request 1415 [facility] [place] [id number] 1415 [facility] [phone] [place], [place] [address] (Wo rk) Social History [...] if he would like an alternative prescribed. [id number] Mendy Nieves RN - 08/31/2019 2:28 PM CDT Return call from patient, patient will contact other pharmacies for Rx Levocarnitine supply and affordable medication. If unavailable, patient will request for alternative medication from PCP. Await return call. Sasha Garcia RN - 08/31/2019 9:43 AM CDT Left message for patient to return call to [phone]. Medication is historical. Does patient want to call other pharmacies for refill due to back order ofmedication at [facility] pharmacy or request alternative medication from [...] an appropriate substitute. Thank you. Calvin [place] [phone] documented in this encounter Plan of Treatment Not on filedocumented as of this encounter Visit Diagnoses Not on filedocumented in this encounter Care Teams Echo Technician Relationship Specialty Start Date End Date Gagandeep Hinojosa MD PCP - General 05/17/12 1415 [facility] [place] [address] Vane Zarate Psychiatrist Psychiatry 03/22/12 [facility] Psychotherapist 08/04/17 [facility] Lubrication Servicer 09/13/17 documented as of this encounter
--- OUTSIDE RECORDS SUMMARY | 2022-02-14 10:40 | XMS_ITS | Encounter Summary ---
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 [facility] current use of ins ulin (HRC); [place] [address] [address] Type 2 diabetes mellitus with diabetic p olyneuropathy, with long-term current use of insulin (HR) [phone] [place] [phone] Social History Tobacco Use Types Packs/Day Years [...] Comments Blood Pressure 99/59 05/02/2019 11:31 AM SUPERINTENDENT PIER Pulse 70 05/02/2019 11:31 AM SUPERINTENDENT PIER Temperature 38.2 ??C (100.8 ??F) 05/02/2019 11:31 AM SUPERINTENDENT PIER Respiratory Rate - - Oxygen Saturation - - Inhaled Oxygen Concentration - - Weight 92.4 kg (203 lb 12.8 oz) 05/02/2019 11:31 AM SUPERINTENDENT PIER Height - - Body Mass Index 29.24 07/27/2018 1:49 PM CDT documented in this encounter Progress Notes Gagandeep Hinojosa MD - 05/02/2019 11:00 AM CST SUBJECTIVE: 49 y.o. 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 He is due for testing [...] CAPSULE BY MOUTH EVERY DAY 0 ??? Millsap Carbonate 600 MG capsule Take 600 mg [...] 1 Tablet by mouth. 01/16/2018: [facility] Re[facility] Sig: Take 1 tablet by mouth [...] times a day. ??? Vitamin D, Ergocalciferol, 88927 units CAPS Take 50,000 Units by mouth. [...] 2 diabetes mellitus with neurological manifestations, uncontrolled ([facility]) E11.49 E11.65 2. Uncontrolled type 2 diabetes mellitus with hyperglycemia ([facility]) E11.65 Microalb/Creat Ratio POCT Glycosylated Hemoglobin (HB A1C) Lipid Panel and Direct LDL(If Needed) Creatinine / GFR 3. terminal gauger supervisor current use of insulin ([facility]) Z79.4 4. Type 2 diabetes mellitus with diabetic polyneuropathy, with long-term current use of insulin ([facility]) E11.42 Z79.4 PLAN: 1. He will return for a more formal exam when he is feeling better. His DMV form was completed. The patient was discharged ambulatory and in stable condition. Diabetes measures: A1c Due: 1 months Foot Exam: 1 month Eye exam: Patient will schedule Cholesterol: 1 month Electrolytes: 1 month UMAR: 1 month Aspirin: yes Tobacco: no RINTENDENT PIER documented in this encounter Plan of Treatment Not on filedocumented as of this encounter Results (ABNORMAL) Microalb/Creat Ratio (08/28/2019 2:10 PM CDT) athologist Signature Albumin, 265.4 mg/L 08/28/2019 [facility] Urine, Random 5:06 PM CDT LABORATORY Creatinine, 49 >20 mg/dL 08/28/2019 [facility] Urine, Random 5:06 PM CDT LABORATORY Albumin/Creati 542 (H) <30 mg/g 08/28/2019 [facility] nine Ratio, 5:06 PM CDT LABORATORY Urine, Random Specimen Anatomical Collection Method Collection Time Receive d Time (Source) Location / / Volume Laterality Urine,random Non-blood 08/28/2019 2:10 PM 0 2:10 Collection / CDT PM CDT Unknown Gagandeep Hinojosa MD LAB_1 Performing Organization Address City/State/[facility] Code Phon e Number [facility] [address] [place] [address] (ABNORMAL) Creatinine / GFR (08/28/2019 2:06 PM CDT) [facility] Method Time Signature Creatinine 0.70 (L) 0.73 - 08/28/2019 [facility] 1.18 mg/dL 5:02 PM CDT LABORATORY GFR, Estimated >60 >60 08/28/2019 [facility] mL/min/1.7 5:02 PM CDT LABORATORY 3m2 GFR, Est If >60 >60 08/28/2019 [facility] mL/min/1.7 5:02 PM CDT LABORATORY Malagasy 3m2 Specimen Anatomical Collection Method / Collection Time Recei abimael Time (Source) Location / Volume Laterality Blood Venipuncture / 08/28/2019 2:06 08/28/2019 2:06 Unknown PM CDT PM CDT Gagandeep Hinojosa MD LAB_1 Performing Organization Address City/[facility] Code Phon e Number [facility] [address] [place] [address] (ABNORMAL) POCT Glycosylated Hemoglobin (HB A1C) (08/28/2019 2:06 PM CDT) [facility]olo [employer] Method Time Signature Hemoglobin A1C 11.4 (H) <=5.6 % 08/28/2019 [facility] (Rapid) 2:15 PM CDT LABORATORY Specimen Anatomical Collection Method / Collection Time Recei abimael Time (Source) Location / Volume Laterality Blood Venipuncture / 08/28/2019 2:06 08/28/2019 2:06 Unknown PM CDT PM CDT Narrative [facility] - 08/28/2019 2:15 PM CDT This Rapid A1c test is designed for charlotte toring patients with an established diagnosis of diabetes mellitus. This rapid method is not suitable to establish the initial diagnosis of diabetes mellitus. Performe d using Point of Care Instrumentation. Gagandeep Hinojosa MD LAB_1 Performing Organization Address City/State/ZIP Code Phon e Number [facility] [address] [place] [address] [phone] documented in this encounter Visit Diagnoses Diagnosis 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, uncontrolled - Primary Uncontrolled type 2 diabetes mellitus wi th hyperglycemia (HRC) jail current use of insulin (HRC) Encounter for long-term (current) use of insulin Type 2 diabetes mellitus with diabetic p olyneuropathy, with long-term current use of insulin (HRC) documented in this encounter Care Teams Reception Relationship Specialty Start Date End Date Gagandeep Hinojosa MD PCP - General 05/17/12 [address] [place] [address] Vane Zarate Psychiatrsamantha Psychiatry 03/22/12 [facility] Psychotherapist 08/04/17 [facility] World Geography Teacher 09/13/17 documented as of this encounter
--- OUTSIDE RECORDS SUMMARY | 2022-02-14 10:40 | XMS_ITS | Encounter Summary ---
:1970 Author Organization [employer] Address [address] [address] Care Team Providers Name Role Phone Gagandeep Hinojosa MD Primary Care Provider Reason for Visit Reason Onset Date Comments Refill 08/24/2019 Patient Calling Back 08/24/2019 Encounter Details Date Type Department Care Team Description 08/24/2019 Refill [facility] Gagandeep Hinojosa, Refil l; Patient Calling Medicine MD Back 1415 [facility] . [address] [place] [address] [place], [place] [address] (Wo rk) Social History Tobacco Use Types [...] med until new psychiatrist can be found. Antoine Larsen - 08/24/2019 12:41 PM CDT Medications [...] on filedocumented in this encounter Care Teams Solutions Development Analyst Relationship Specialty Start Date End Date Gagandeep Hinojosa MD PCP - General 05/17/12 1415 [place] [address] Vane Zarate Psychiatrist Psychiatry 03/22/12 [facility] Mental [facility] Psychotherapist 08/04/17 [facility] Gallery Host 09/13/17 documented as of this encounter
--- OUTSIDE RECORDS SUMMARY | 2022-02-14 10:40 | XMS_ITS | Encounter Summary ---
:1970 Author Organization [employer] Address [address], [place] [address] Care Team Providers Name Role Phone Gagandeep Hinojosa MD Primary Care Provider Reason for Visit Reason Comments Patient Care Coordination Encounter Details Date Type Department Care Team Description 06/11/2019 Care Coord [facility] Deborah Rodrigues Patien t Care Phone Medicine [facility] Coordination [address] [place] [address] [place] [address] [phone] Social History Tobacco Use Types Packs/Day Years [...] Rodrigues LICSW - 06/11/2019 1:25 PM CST Administrator Health Care Facility - Phone Call Contact with: Rustam Reason [...] with plan of care and follow up. PATCHER documented in this encounter Plan of Treatment Not on filedocumented as of this encounter Visit Diagnoses Diagnosis Health correction, active care coordinati on - Primary documented in this encounter Care Teams Signal Operator Relationship Specialty Start Date End Date Gagandeep Hinojosa MD PCP - General 05/17/[address] [place] [address] [place] [address] Vane Zarate Psychiatrist Psychiatry 03/22/12 [facility] Mental Health Psychotherapist 08/04/17 [facility] Barrel Tester 09/13/17 documented as of this encounter
--- OUTSIDE RECORDS SUMMARY | 2022-02-14 10:40 | XMS_ITS | Encounter Summary ---
:1970 Author Organization [facility] Address [address] [place] [address] Care Team Providers Name Role Phone Gagandeep Hinojosa MD Primary Care Provider Reason for Visit Reason Comments RESULTS, TEST Encounter Details Date Type Department Care Team Description 07/12/2019 Telephone [facility] Gagandeep Hinojosa MD RESULTS, TEST 1415 [facility] . 1415 [place] [address] [place] [address] [phone] (Wo rk) Social History Tobacco Use Types [...] on filedocumented in this encounter Care Teams Correctional Casework Specialist Relationship Specialty Start Date End Date Gagandeep Hinojosa MD PCP - General 05/17/12 1415 [facility] [place] [address] Vane Zarate Psychiatrist Psychiatry 03/22/12 [facility] Mental Health Psychotherapist 08/04/17 [facility] Exhaust Equipment Operator 09/13/17 documented as of this encounter
--- OUTSIDE RECORDS SUMMARY | 2022-02-14 10:40 | XMS_ITS | Encounter Summary ---
:1970 Author Organization [employer] Address [address] [place] [address] Care Team Providers Name Role Phone Gagandeep [...] Medicine MD Joanne (Pt has appointment [address] 14[address] [facility] tomorrow for f/u [place] [address] [address] diabetes, would like [phone] [place] [phone] , to discuss [phone] possible diagno sis of (Work) Parkinson's, (declined [...] 1 week Protocols used: WEAKNESS (GENERALIZED) AND NSHANXY-NEAOD-NF BABY Analy Elias - 05/30/2019 3:32 PM CST [...] a pool number. Please sign/close phone encounter BABY documented in this encounter Plan of Treatment Not on filedocumented as of this encounter Visit Diagnoses Not on filedocumented in this encounter Care Teams Hotel Assistant General Manager Relationship Specialty Start Date End Date Gagandeep Hinojosa MD PCP - General 05/17/12 1415 [facility] [place] [id number] Vane Zarate Psychiatrsamantha Psychiatry 03/22/12 [facility] Psychotherapist 08/04/17 [facility] Water Sander 09/13/17 documented as of this encounter
--- OUTSIDE RECORDS SUMMARY | 2022-02-14 10:40 | XMS_ITS | Encounter Summary ---
:1970 Author Organization [employer] Address [address] [place] [address] Care Team Providers Name Role Phone Gagandeep Hinojosa MD Primary Care Provider Reason for Visit Reason Comments APPOINTMENT REQUEST Encounter Details Date Type Department Care Team Description 02/22/2019 Care Coord Phone Judy Luke R N APPOINTMENT REQUEST [facility] 1415 [facility] 1415 [facility] [place] [address] [place] [phone] [address] Social History Tobacco Use Types Packs/Day Years Used Date Smoking Tobacco: Former Cigarettes 1 25 Smokeless Tobacco: Former Qu it: 10/25/2012 Comments: Smoking History Packs/day: Alcohol Use Standard Drinks/Week Comments No 0 (1 standard drink = 0.6 oz pure Alcoho lic Drinks/day: Amount:0; alcohol) Freq:Never; Sex Assigned at Date Recorded Not on file documented as of this encounter Progress Notes Viviana Marroquin - 02/26/2019 12:55 PM CST Left message for patient to call me back at [phone] OPAEDIC NURSE Judy Pittman RN - 02/22/2019 3:23 PM CDT Rustam??is overdue for DM follow up and needs to schedule (last DM follow up 07/27/18). ??A1c on??11/28/2018 was??10.6%, was due??for??DM follow up on 10/26/2018. OPAEDIC NURSE documented in this encounter Plan of Treatment Not on filedocumented as of this encounter Visit Diagnoses Not on filedocumented in this encounter Care Teams Sole Dyer Relationship Specialty Start Date End Date Gagandeep Hinojosa MD PCP - General 05/17/12 1415 [facility] [place] [address] Vane Zarate Psychiatrsamantha Psychiatry 03/22/12 [facility] Health Psychotherapist 08/04/17 [facility] Pneumatic System Conveyor Operator 09/13/17 documented as of this encounter
--- OUTSIDE RECORDS SUMMARY | 2022-02-14 10:40 | XMS_ITS | Encounter Summary ---
:1970 Author Organization [employer] Address [address] [address] Care Team Providers Name Role Phone Gagandeep Hinojosa MD Primary Care Provider Encounter Details Date Type Department Care Team Description 07/23/2019 Orders Only Initial Department Provider, Magda, [facility] YADY JEFFRIES MD [place], [place] [address] Interface provider [phone] [place] [address] Social History Tobacco Use Types Packs/Day Years [...] filedocumented in this encounter Care Teams Director Data Processing Relationship Specialty Start Date End Date Gagandeep Hinojosa MD PCP - General 05/17/12 [address] [place] [address] Vane Zarate Psychiatrist Psychiatry 03/22/12 [facility] Mental Health Psychotherapist 08/04/17 [facility] Field Aide 09/13/17 documented as of this encounter
--- OUTSIDE RECORDS SUMMARY | 2022-02-14 10:40 | XMS_ITS | Encounter Summary ---
:1970 Author Organization [employer] Address [address], [place] [address] Care Team Providers Name Role Phone Gagandeep Hinojosa MD Primary Care Provider Reason for Referral (Routine) - Closed Specialty Diagnoses / Procedures Referred By Contact Refer red To Contact Diagnoses Atrial fibrillation, unspecified type (HRC) Zara Fox MD Procedures OUTREACH ZIOPATCH RECORDER [address] [employer] [place], [place] [address] Referral ID Status Reason Start Date Expiration Date Visits Requ ested Visits Authorized [id number] Closed 07/12/2019 10/10/2020 1 1 Encounter Details Date Type Department Care Team Description 07/04/2019 Hospital Encounter [facility] fibrillation, Center unspecified typ e (HRC) Electrocardiogram, (Primary Dx) Holter, Event Record er [address] [place] [address] Social History Tobacco Use Types [...] CDT unspecified type procedure a re in ([facility]) the results section. documented in this encounter Results OUTREACH ZIOPATCH RECORDER (07/04/2019 11:25 AM CDT) Narrative POCT - 07/04/2019 11:25 AM CDT Zio XT Final Report for Timur Krishnamurthy Date of : [birth year] (49 yrs) Gender: Male Prescribing Clinician: Dr. Ofelia Fox Referring Clinician: Dr. Scar Hinojosa Managing Location: [facility] Primary Indication (I48.91): Unspecified atrial fibrillation Enrollment [...] documented in this encounter Care Teams Clinical Pharmacologist Relationship Specialty Start Date End Date Gagandeep Hinojosa MD PCP - General 05/17/12 14[address] [place] [address] Vane Zarate Psychiatrist Psychiatry 03/22/12 [facility] Psychotherapist 08/04/17 [facility] Wildland Fire Operations Specialist 09/13/17 documented as of this encounter
--- OUTSIDE RECORDS SUMMARY | 2022-02-14 10:40 | XMS_ITS | Encounter Summary ---
:1970 Author Organization [employer] Address [address] [place] [address] Care Team Providers Name Role Phone Gagandeep Hinojosa MD Primary Care Provider Reason for Visit Reason Comments Hospital Discharge Follow-up 06-17-19 [facility] admi t for Chest pain Encounter Details Date Type Department Care Team Description 06/21/2019 Office Visit Gagandeep Storm Atypical chest pain (Primary Dx); Romario Rubio MD H/O atrial flutter; [address] 1415 [facility] Uncontrolled type 2 diabetes mellitus without complication, without long-term current use of insulin (HRC); [place] [address] [address] Tobacco use disorder; [phone] [place] VIG[place] [address] Drug-induced tremor Social History Tobacco Use [...] Comments Blood Pressure 132/85 06/21/2019 10:26 AM SENIOR IT ASSISTANT Pulse 92 06/21/2019 10:26 AM SENIOR IT ASSISTANT Temperature - - Respiratory Rate - - Oxygen Saturation - - Inhaled Oxygen Concentration - - Weight 90.7 kg (200 lb) 06/21/2019 10:26 AM SENIOR IT ASSISTANT Height 177.2 cm (5' 9.75) 06/21/2019 10:26 AM SENIOR IT ASSISTANT Body Mass Index 28.9 06/21/2019 10:26 AM SENIOR IT ASSISTANT documented in this encounter Progress Notes Gagandeep Hinojosa MD - 06/21/2019 10:20 AM CST ICD-10-CM 1. Atypical chest pain R07.89 2. H/O atrial flutter Z86.79 3. Uncontrolled type 2 diabetes mellitus without complication, without long-term current use of insulin ([facility]) E11.65 4. Tobacco use disorder ([facility]) F17.200 5. Drug-induced tremor G25.1 CHIEF COMPLAINT: Chief Complaint Patient presents with ??? Hospital Discharge Follow-up 06-17-19 [facility] hospital admit for Chest pain SUBJECTIVE : [...] Diagnosis Date Noted ??? Non-proliferative diabetic retinopathy ([facility]) 05/02/2019 ??? Hyponatremia 01/16/2018 ??? Tinea versicolor 07/18/2015 ??? Tobacco use disorder ([facility]) 10/26/2012 ??? Anemia 05/02/2012 Overview Note: Anemia, unspecified ??? Microalbuminuria 02/04/2012 ??? [place], old ([facility]) 09/16/2011 ??? History of PTCA 09/16/2011 Overview Note: History of PTCA 04/2011 BMS RCA ??? Obesity, Class I, BMI 30-34.9 ([facility]) 09/16/2011 Overview Note: Body mass index is 31.16 kg/(m^2). ??? Hyperlipidemia with target LDL less than 70 ([facility]) 06/08/2011 Overview Note: Hyperlipidemia LDL goal < 70 ??? ASHD (arteriosclerotic heart disease) ([facility]) 05/04/2011 ??? Erectile dysfunction 01/22/2011 Overview Note: side effect Risperdal ??? Type 2 diabetes mellitus, uncontrolled ([facility]) 12/11/2010 Overview Note: Type II or unspecified type diabetes mellitus without mention of complication, uncontrolled ([facility]) ??? Dermatophytosis of body 09/04/2010 Class: Historical Overview Note: Tinea Corporis ??? Coronary atherosclerosis ([facility]) 12/22/2009 Overview Note: LW Modifier: mod RCA, negative nuclear stress test ; CAD ??? Nonspecific abnormal results of liver function study 12/22/2009 Overview Note: Liver Function Tests Abnormal ??? Bipolar I disorder ([facility]) 09/15/2005 Overview Note: LW Onset: 39Imb25 ; Bipolar I Dis FAMILY HISTORY OR [...] 1 Tablet by mouth. 01/16/2018: Received from: [employer] [facility] Received Sig: Take 1 tablet [...] 32 Units subcutaneously daily. 6 mL5 ??? [place] Carbonate 600 MG capsule Take 600 mg by mouth daily at bedtime. 01/16/2018: Received from: External Pharmacy Received Sig: TAKE ONE CAPSULE BY MOUTH AT BEDTIME 0 ??? Vitamin D, Ergocalciferol, 43714 units CAPS Take 50,000 Units by mouth. [...] enhancing his diabetes control Follow-up: 2 weeks OR IT ASSISTANT documented in this encounter Plan of Treatment [...] remor documented in this encounter Care Teams Sub Arc Operator Relationship Specialty Start Date End Date Gagandeep Hinojosa MD PCP - General 05/17/12 1415 [facility] [place] [address] Vane Zarate Psychiatrist Psychiatry 03/22/12 [facility] Psychotherapist 08/04/17 [facility] Molder Helper 09/13/17 documented as of this encounter
--- OUTSIDE RECORDS SUMMARY | 2022-02-14 10:40 | XMS_ITS | Encounter Summary ---
:1970 Author Organization [employer] Address [address] [place] [address] Care Team Providers Name Role Phone Gagandeep Hinojosa MD Primary Care Provider Reason for Visit Reason Comments LAB RESULTS Encounter Details Date Type Department Care Team Description 07/11/2019 Telephone [facility] Gagandeep Hinojosa MD LAB RESULTS 1415 [facility] . 1415 [place] [address] [place] [address] [phone] (Wo rk) Social History Tobacco Use Types [...] ZioPatch results Clinician Next Step: Route to [place] Nurse [place] to follow up Specific Request(s): 1. Results have been routed to providers results inbasket. Please review and advise. Jessica Tirado - 07/11/2019 3:45 PM CDT Test Results (Advise caller/patient can view test results in MyChart, if enrolled) What test are you calling about? Zio patch -pt request a call back today Primary Contract Loader: Gagandeep Hinojosa MD Who ordered the test? [...] filedocumented in this encounter Care Teams Retail Coverage Merchandiser Lead Relationship Specialty Start Date End Date Gagandeep Hinojosa MD PCP - General 05/17/12 1415 [place] [address] Vane Zarate Psychiatrist Psychiatry 03/22/12 [facility] Psychotherapist 08/04/17 [facility] Calculation Reviewer 09/13/17 documented as of this encounter
--- OUTSIDE RECORDS SUMMARY | 2022-02-14 10:40 | XMS_ITS | Encounter Summary ---
:1970 Author Organization [employer] Address [address] [place] [address] Care Team Providers Name Role Phone Gagandeep [...] Type Department Care Team Description 08/10/2019 Refill [facility] Gagandeep Michaud, Refil l (atorvastatin Medicine MD (LIPITOR) 80 MG tablet [address] 1415 [facility] [Pharmacy Med Name: [place] [address] [place] [address] Atorvastatin Calcium 80 [phone] (Wo rk) MG Oral Tablet]; metoprolo l [...] MICHAUD) Next scheduled visit: None [facility], Reference: [id number], 08/10/2019 5:31:42 AM CDT, Pool: MANUEL REFILL ([id number]) metoprolol succinate (TOPROL XL) 50 MG 24 [...] 85 mm Hg on 06/21/2019 Powered by [employer], Reference: [id number], 08/10/2019 5:31:42 AM CDT, Pool: MANUEL MOORE ([id number]) documented in this encounter Plan of Treatment Not on filedocumented as of this encounter Visit Diagnoses Diagnosis ASHD (arteriosclerotic heart disease) ([facility]) Coronary atherosclerosis of unspecified type of vessel, [place] or graft Hyperlipidemia LDL goal < 70 Other and unspecified hyperlipidemia Essential hypertension ([facility]C) Unspecified essential hypertension documented in this encounter Care Teams Intermission Coordinator Relationship Specialty Start Date End Date Gagandeep Michaud MD PCP - General 05/17/12 [facility] [place] [address] Vane Zarate Psychiatrist Psychiatry 03/22/12 [facility] Psychotherapist 08/04/17 [facility] CM Power Equipment Mechanics Instructor 09/13/17 documented as of this encounter
--- OUTSIDE RECORDS SUMMARY | 2022-02-14 10:40 | XMS_ITS | Encounter Summary ---
:1970 Author Organization [employer] Address [address], [place] [address] Care Team Providers Name Role Phone Gagandeep Hinojosa MD Primary Care Provider Reason for Visit Reason Comments Appt. Needed medicare wellness Encounter Details Date Type Department Care Team Description 08/06/2019 [facility] Hinojosa, Appt. Needed (medicare Medicine MD wellness) [address] [facility] . 1415 [place] [address] [place] [address] [phone] (Wo rk) Social History Tobacco Use Types [...] filedocumented in this encounter Care Teams Senior Site Manager Relationship Specialty Start Date End Date Gagandeep Hinojosa MD PCP - General 05/17/12 [facility] [place] [address] Vane Zarate Psychiatrist Psychiatry 03/22/12 [facility] Psychotherapist 08/04/17 [facility] Apron Worker 09/13/17 documented as of this encounter
--- OUTSIDE RECORDS SUMMARY | 2022-02-14 10:40 | XMS_ITS | Encounter Summary ---
:1970 Author Organization [employer] Address [address] [place] [address] Care Team Providers Name Role Phone Gagandeep Hinojosa MD Primary Care Provider Reason for Visit Reason Comments Follow-up Encounter Details Date Type Department Care Team Description 06/11/2019 Office Visit Gagandeep Storm r for work capability assessment (Primary Dx); Romario Rubio MD Screening for tuberculosis; [address] 1415 [facility] [place] [address] Ave [phone] [place], [place] [address] Social History Tobacco Use [...] Comments Blood Pressure 137/80 06/11/2019 1:00 PM CONSUMER AFFAIRS MANAGER Pulse 95 06/11/2019 1:00 PM CONSUMER AFFAIRS MANAGER Temperature - - Respiratory Rate - - Oxygen Saturation - - Inhaled Oxygen Concentration - - Weight 93.9 kg (207 lb) 06/11/2019 1:00 PM CONSUMER AFFAIRS MANAGER Height - - Body Mass Index 29.7 [...] although he reports his psychiatrist is nearing assisted. He has had significant psychiatric breaks including bipolar dissociations, etc. and I would be reluctant to modify his medications. PROBLEM LIST: Patient Active Problem List Diagnosis Date Noted ??? Non-proliferative diabetic retinopathy ([facility]) 05/02/2019 ??? Hyponatremia 01/16/2018 ??? Tinea versicolor 07/18/2015 ??? Tobacco use disorder ([facility]) 10/26/2012 ??? Anemia 05/02/2012 Overview Note: Anemia, unspecified ??? Microalbuminuria 02/04/2012 ??? [place], old ([facility]) 09/16/2011 ??? History of PTCA 09/16/2011 Overview Note: History of PTCA 04/2011 BMS RCA ??? Obesity, Class I, BMI 30-34.9 ([facility]) 09/16/2011 Overview Note: Body mass index is 31.16 kg/(m^2). ??? Hyperlipidemia with target LDL less than 70 ([facility]) 06/08/2011 Overview Note: Hyperlipidemia LDL goal < 70 ??? ASHD (arteriosclerotic heart disease) ([facility]) 05/04/2011 ??? Erectile dysfunction 01/22/2011 Overview Note: side effect Risperdal ??? Type 2 diabetes mellitus, uncontrolled ([facility]) 12/11/2010 Overview Note: Type II or unspecified type diabetes mellitus without mention of complication, uncontrolled ([facility]) ??? Dermatophytosis of body 09/04/2010 Class: Historical Overview Note: Tinea Corporis ??? Coronary atherosclerosis ([facility]) 12/22/2009 Overview Note: LW Modifier: mod RCA, negative nuclear stress test ; CAD ??? Nonspecific abnormal results of liver function study 12/22/2009 Overview Note: Liver Function Tests Abnormal ??? Bipolar I disorder ([facility]) 09/15/2005 Overview Note: LW Onset: 52Sic51 ; Bipolar I Dis FAMILY HISTORY OR [...] CAPSULE BY MOUTH EVERY DAY 0 ??? [place] Carbonate 600 MG capsule Take 600 mg [...] 1 Tablet by mouth. 01/16/2018: Received from: [facility] Received Sig: Take 1 tablet by [...] times a day. ??? Vitamin D, Ergocalciferol, 31138 units CAPS Take 50,000 Units by mouth. [...] regard to medication management of his tremor. UMER AFFAIRS MANAGER documented in this encounter Nursing Notes Diana Zambrano LPN - 06/11/2019 1:00 PM CST Pt refused immunizations UMER AFFAIRS MANAGER documented in this encounter Plan of Treatment Not on filedocumented as of this encounter Procedures Procedure Name Priority Date/Time Associated Diagnosis Comme nts TB SKIN TEST (PPD) Routine 06/14/2019 10:53 Screening for Resu lts for this AM CONSUMER AFFAIRS MANAGER tuberculosis procedure are i n the results section. documented in this encounter Results TB SKIN TEST (PPD) (06/14/2019 10:53 AM CONSUMER AFFAIRS MANAGER) P athologist Signature TB Skin Test 0.0 [...] remor documented in this encounter Care Teams Taco Maker Relationship Specialty Start Date End Date Gagandeep Hinojosa MD PCP - General 05/17/12 1415 [facility] [place] [address] Vane Zarate Psychiatrist Psychiatry 03/22/12 [facility] Psychotherapist 08/04/17 [facility] Race Starter 09/13/17 documented as of this encounter
--- OUTSIDE RECORDS SUMMARY | 2022-02-14 10:40 | XMS_ITS | Encounter Summary ---
:1970 Author Organization [employer] Address [address] [place] [address] Care Team Providers Name Role Phone Gagandeep Hinojosa MD Primary Care Provider Encounter Details Date Type Department Care Team Description 08/28/2019 Lab Visit [facility] Uncontrolled type [address] diabetes [address] mellitus with hyperglycemia [place] [address] ([facility]) [phone] Social History Tobacco Use Types Packs/Day Years [...] P athologist Signature Albumin, 265.4 mg/L 08/28/2019 [facility] Urine, Random 5:06 PM CDT LABORATORY Creatinine, 49 >20 mg/dL 08/28/2019 [place] Urine, Random 5:06 PM CDT LABORATORY Albumin/Creati 542 (H) <30 mg/g 08/28/2019 [place] nine Ratio, 5:06 PM CDT LABORATORY Urine, Random Specimen Anatomical Collection Method Collection Time Receive d Time (Source) Location / / Volume Laterality Urine,random Non-blood 08/28/2019 2:10 PM 0 2:10 Collection / CDT PM CDT Unknown Gagandeep Hinojosa MD LAB_1 Performing Organization Address City/[facility]/ZIP Code Phon e Number [facility] [address] [place], [place] [phone] (ABNORMAL) Creatinine / GFR (08/28/2019 2:06 PM CDT) [facility] [employer] Method Time Signature Creatinine 0.70 (L) 0.73 - 08/28/2019 [place] 1.18 mg/dL 5:02 PM CDT LABORATORY GFR, Estimated >60 >60 08/28/2019 [place] mL/min/1.7 5:02 PM CDT LABORATORY 3m2 GFR, Est If >60 >60 08/28/2019 [place] mL/min/1.7 5:02 PM CDT LABORATORY Sam[place] 3m2 Specimen Anatomical Collection Method / Collection Time Recei abimael Time (Source) Location / Volume Laterality Blood Venipuncture / 08/28/2019 2:06 08/28/2019 2:06 Unknown PM CDT PM CDT Gagandeep Hinojosa MD LAB_1 Performing Organization Address City/[facility]/ZIP Code Phon e Number [facility] [address] [place] [phone] (ABNORMAL) POCT Glycosylated Hemoglobin (HB A1C) (08/28/2019 2:06 PM CDT) [facility] [employer] Method Time Signature Hemoglobin A1C 11.4 (H) <=5.6 % 08/28/2019 [facility] (Rapid) 2:15 PM CDT LABORATORY Specimen Anatomical Collection Method / Collection Time Recei abimael Time (Source) Location / Volume Laterality Blood Venipuncture / 08/28/2019 2:06 08/28/2019 2:06 Unknown PM CDT PM CDT Narrative [facility] - 08/28/2019 2:15 PM CDT This Rapid A1c test is designed for charlotte toring patients with an established diagnosis of diabetes mellitus. This rapid method is not suitable to establish the initial diagnosis of diabetes mellitus. Performe d using Point of Care Instrumentation. Gagandeep Hinojosa MD LAB_1 Performing Organization Address City/State/ZIP Code Phon e Number [facility] [address] [place] [phone] documented in this encounter Visit Diagnoses Diagnosis Uncontrolled type 2 diabetes mellitus wi th hyperglycemia ([facility]) documented in this encounter Care Teams Bank President Relationship Specialty Start Date End Date Gagandeep Hinojosa MD PCP - General 05/17/12 [address] [place] [address] Vane Zarate Psychiatrsamantha Psychiatry 03/22/12 [facility] Psychotherapist 08/04/17 [facility] Concrete Carpenter 09/13/17 documented as of this encounter
--- OUTSIDE RECORDS SUMMARY | 2022-02-14 10:40 | XMS_ITS | Encounter Summary ---
:1970 Author Organization [employer] Address [address], [place] [address] Care Team Providers Name Role Phone Gagandeep Michaud MD Primary Care Provider Reason for Visit Reason Onset Date Comments Refill 08/24/2019 risperiDONE (RISPERD AL) 3 MG tablet Encounter Details Date Type Department Care Team Description 08/24/2019 Refill [facility] Gagandeep Michaud, Refil l (risperiDONE Medicine MD (RISPERDAL) 3 MG tablet) 1415 [facility] . [address] [place] [address] [place], [place] [phone] (Wo rk) Social History Tobacco Use Types [...] Should be filled by Psychiatry Interface, Out [employer] Prov Query - 08/24/2019 8:35 AM CDT [...] visit: 08/28/2019 (in Family Practice) Powered by [employer], Reference: [id number], 08/24/2019 8:35:39 AM CDT, Pool: MANUEL MOORE ([id number]) documented in this encounter Plan of Treatment Not on filedocumented as of this encounter Visit Diagnoses Not on filedocumented in this encounter Care Teams Manager Regional Sales Relationship Specialty Start Date End Date Gagandeep Michaud MD PCP - General 05/17/12 [facility] [place] [address] Vane Zarate Psychiatrsamantha Psychiatry 03/22/12 [facility] Psychotherapist 08/04/17 [facility] Knowledge Engineer 09/13/17 documented as of this encounter
--- OUTSIDE RECORDS SUMMARY | 2022-02-14 10:40 | XMS_ITS | Encounter Summary ---
:1970 Author Organization [employer] Address [address] [place] [address] Care Team Providers Name Role Phone Gagandeep Hinojosa MD Primary Care Provider Reason for Visit Reason Comments QUESTIONS, GENERAL Encounter Details Date Type Department Care Team Description 12/17/2018 Telephone [facility] [facility] Gagandeep Hinojosa, QUESTIONS, GENERAL [address] [facility] [address] [place] [address] [place], [place] [address] (Wo rk) Social History Tobacco Use Types [...] appt is tomorrow. Confirmed 11:20 am at [facility] documented in this encounter Plan of Treatment Not on filedocumented as of this encounter Visit Diagnoses Not on filedocumented in this encounter Care Teams Press Operator Apprentice Relationship Specialty Start Date End Date Gagandeep Hinojosa MD PCP - General 05/17/12 1415 [facility] [place] [address] Vane Zarate Psychiatrist Psychiatry 03/22/12 [facility] Health Psychotherapist 08/04/17 [facility] De Icer Kit Assembler 09/13/17 documented as of this encounter
--- OUTSIDE RECORDS SUMMARY | 2022-02-14 10:40 | XMS_ITS | Encounter Summary ---
:1970 Author Organization [email or web address] Address [address] [address] Care Team Providers Name Role Phone Gagandeep Hinojosa MD Primary Care Provider Reason for Visit Reason Onset Date Comments EXAM,NOS 02/07/2019 Encounter Details Date Type Department Care Team Description 02/07/2019 Office Visit Tim Peterson MD [address] [place] [address] Health examination of Medicine Nurse, [facility] defined subpopulation [address] [facility] (Primary Dx) [place] [address] Social History Tobacco Use Types Packs/Day [...] Primary documented in this encounter Care Teams Housing Relocation Relationship Specialty Start Date End Date Gagandeep Hinojosa MD PCP - General 05/17/12 [facility] [place] [address] Vane Zarate Psychiatrsamantha Psychiatry 03/22/12 [facility] Mental Health Psychotherapist 08/04/17 [facility] Podiatric Aide 09/13/17 documented as of this encounter
--- OUTSIDE RECORDS SUMMARY | 2022-02-14 10:40 | XMS_ITS | Encounter Summary ---
:1970 Author Organization [email or web address] Address [address] [place] [address] Care Team Providers Name Role Phone Gagandeep Hinojosa MD Primary Care Provider Reason for Visit Reason Comments Diabetes Rash chest X 2 months Encounter Details Date Type Department Care Team Description 12/18/2018 Office Visit Gagandeep Stormea ve rsicolor (Primary Dx); Romario Rubio MD Essential hypertension; [address] [place] [address] [facility] Uncontro lled type 2 diabetes mellitus without complication, without long-term current use of insulin ([facility]); [address]. 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 [place] Carbonate 600 MG capsule Take 600 mg by mouth daily at bedtime. 01/16/2018: Received from: External Pharmacy Received Sig: TAKE ONE CAPSULE BY MOUTH AT BEDTIME 0 ??? metoprolol succinate (TOPROL XL) 50 MG 24 hour release tablet Take 1 Tablet by mouth daily. 90 Tablet 1 ??? multivitamin (THERAGRAN) tablet Take 1 Tablet by mouth. 01/16/2018: [facility] Received Sig: Take 1 tablet by [...] times a day. ??? Vitamin D, Ergocalciferol, 43380 units CAPS Take 50,000 Units by mouth. [...] 2 diabetes mellitus with neurological manifestations, uncontrolled ([facility]) E11.49 E11.65 5. Tobacco use disorder ([facility]) F17.200 PLAN: 1. Continue to work on [...] 2 diabetes mellitus wi th hyperglycemia ([facility]) terminal operations supervisor current use of insulin ([facility]) Encounter for long-term (current) use of insulin Type 2 diabetes mellitus without complic ation, with long-term current use of insulin ([facility]) Hyperlipidemia, unspecified hyperlipidem ia type documented in this encounter Care Teams Marzipan Molder Relationship Specialty Start Date End Date Gagandeep Hinojosa MD PCP - General 05/17/12 1415 [facility] [place], [place] [address] Vane Zarate Psychiatrist Psychiatry 03/22/12 [facility] Psychotherapist 08/04/17 [facility] Machine Setter And Repairer 09/13/17 documented as of this encounter
--- OUTSIDE RECORDS SUMMARY | 2022-02-14 10:40 | XMS_ITS | Encounter Summary ---
:1970 Author Organization [employer] Address [address], [place] [address] Care Team Providers Name Role Phone Gagandeep Michaud MD Primary Care Provider Reason for Visit Reason Onset Date Comments Refill 08/24/2019 benztropine (COGENTI N) 1 MG tablet Encounter Details Date Type Department Care Team Description 08/24/2019 Refill [facility] Gagandeep Michaud, Refil l (benztropine Medicine (COGENTIN) 1 MG tablet) 1415 [facility] . [address] [place] [address] [place], [place] [phone] (Wo rk) Social History Tobacco Use Types [...] 9:50 AM CDT Call patient Interface, Out Yodio Prov Query - 08/24/2019 8:34 AM CDT benztropine (COGENTIN) 1 MG tablet -> The medication cannot be found in the patient's medication history. -> Medication cannot be delegated. Last qualifying visit: 06/21/2019 (with GAGANDEEP MICHAUD) Next scheduled visit: 08/28/2019 (in Family Practice) Powered by [employer], Reference: [id number], 08/24/2019 8:34:13 AM CDT, Pool: MANUEL MOORE ([id number]) documented in this encounter Plan of Treatment Not on filedocumented as of this encounter Visit Diagnoses Not on filedocumented in this encounter Care Teams Beck Tender Relationship Specialty Start Date End Date Gagandeep Michaud MD PCP - General 05/17/12 1415 [facility] [place] [address] Vane Zarate Psychiatrist Psychiatry 03/22/12 [facility] Health Psychotherapist 08/04/17 [facility] Baster Hand 09/13/17 documented as of this encounter
--- OUTSIDE RECORDS SUMMARY | 2022-02-14 10:41 | XMS_ITS | Encounter Summary ---
:1970 Author Organization [employer] Address [address] [place] [address] Care Team Providers Name Role Phone Gagandeep Hinojosa MD Primary Care Provider Reason for Visit Reason Comments Mental Health Concerns Encounter Details Date Type Department Care Team Description 11/03/2018 Care Coord [facility] [facility] Deborah Rodrigues, Mental Health Phone Medicine [facility] Concerns [address] [facility]. [facility] [place] [address] [place] [address] [phone] Social History Tobacco Use Types Packs/Day Years [...] Diagnosis:??Bipolar I Disposition:??Home, self care ?? Needs [facility] follow-up with PCP and care coordination. Have reached out several times, but have not gotten a return call. documented in this encounter Plan of Treatment Not on filedocumented as of this encounter Visit Diagnoses Diagnosis Health chcf, active care coordinati on - Primary documented in this encounter Care Teams Career Counselor Relationship Specialty Start Date End Date Gagandeep Hinojosa MD PCP - General 05/17/12 [facility] [place] [address] Vane Zarate Psychiatrist Psychiatry 03/22/12 [facility] Psychotherapist 08/04/17 [facility] Child Care Counselor 09/13/17 documented as of this encounter
--- OUTSIDE RECORDS SUMMARY | 2022-02-14 10:41 | XMS_ITS | Encounter Summary ---
:1970 Author Organization [facility] Address [address] [place] [address] Care Team Providers Name Role Phone Gagandeep Hinojosa MD Primary Care Provider Reason for Referral (Routine) - Closed Specialty Diagnoses / Procedures Referred By Contact Refer red To Contact Diagnoses LV dysfunction Gagandeep Hinojosa MD Procedures Echocardiogram 1415 [facility] [address] Referral ID Status Reason Start Date Expiration Date Visits Requ ested Visits Authorized [id number] Closed 08/07/2018 11/06/2019 1 1 Reason for Visit Reason Comments Follow-up Test results Encounter Details Date Type Department Care Team Description 08/07/2018 Office Visit Gagandeep Storm LV dysfu nction Romario Rubio MD (Primary Dx) 1415 [facility] . [address] [place] [address] [address] [phone] [place], [place] [address] Social History Tobacco Use [...] Noted ??? Hyponatremia 01/16/2018 ??? Tobacco abuse ([facility]) 02/24/2016 ??? Tinea versicolor 07/18/2015 ??? Tobacco use disorder ([facility]) 10/26/2012 ??? Anemia 05/02/2012 Overview Note: Anemia, unspecified ??? Microalbuminuria 02/04/2012 ??? LA, old ([facility]) 09/16/2011 ??? History of PTCA 09/16/2011 Overview Note: History of PTCA 04/2011 BMS RCA ??? Obesity, Class I, BMI 30-34.9 ([facility]) 09/16/2011 Overview Note: Body mass index is 31.16 kg/(m^2). ??? Hyperlipidemia with target LDL less than 70 ([facility]) 06/08/2011 Overview Note: Hyperlipidemia LDL goal < 70 ??? ASHD (arteriosclerotic heart disease) ([facility]) 05/04/2011 ??? Erectile dysfunction 01/22/2011 Overview Note: side effect Risperdal ??? Type 2 diabetes mellitus, uncontrolled ([facility]) 12/11/2010 Overview Note: Type II or unspecified type diabetes mellitus without mention of complication, uncontrolled ([facility]) ??? Dermatophytosis of body 09/04/2010 Class: Historical Overview Note: Tinea Corporis ??? Coronary atherosclerosis ([facility]) 12/22/2009 Overview Note: LW Modifier: mod RCA, negative nuclear stress test ; CAD ??? Nonspecific abnormal results of liver function study 12/22/2009 Overview Note: Liver Function Tests Abnormal ??? Bipolar I disorder ([facility]) 09/15/2005 Overview Note: LW Onset: [id number] ; Bipolar I Dis FAMILY HISTORY OR [...] CAPSULE BY MOUTH EVERY DAY 0 ??? [place] Carbonate 600 MG capsule Take 600 mg [...] 1 Tablet by mouth. 01/16/2018: [facility] Received Sig: Take 1 tablet by [...] unspecified documented in this encounter Care Teams Physics Technician Relationship Specialty Start Date End Date Gagandeep Hinojosa MD PCP - General 05/17/12 1415 [facility] [place] [address] Vane Zarate Psychiatrsamantha Psychiatry 03/22/12 [facility] Psychotherapist 08/04/17 [facility] Quarter Section Ironer 09/13/17 documented as of this encounter
--- OUTSIDE RECORDS SUMMARY | 2022-02-14 10:41 | XMS_ITS | Encounter Summary ---
:1970 Author Organization [employer] Address [address] [place] [address] Care Team Providers Name Role Phone Gagandeep Hinjoosa MD Primary Care Provider Reason for Visit Reason Comments HYPERGLYCEMIA Encounter Details Date Type Department Care Team Description 12/09/2018 Nurse Triage [facility] Gagandeep Hinojosa MD HYPERGLYCEMIA [address] [place] [address] [phone] Social History Tobacco Use Types Packs/Day Years [...] speech) Protocols used: DIABETES - HIGH BLOOD [id number] Pt is calling to report that his [...] gives verbal consent for nursing to contact ia s Rosetta regarding his current situation and [...] home now and will drive him to [facility] now. PNNL called pts to confirm this [...] on filedocumented in this encounter Care Teams Plasterer Helper Relationship Specialty Start Date End Date Gagandeep Hinojosa MD PCP - General 05/17/12 [facility] [place] [address] aVne Zarate Psychiatrist Psychiatry 03/22/12 [facility] Psychotherapist 08/04/17 [facility] Cloud Physicist 09/13/17 documented as of this encounter
--- OUTSIDE RECORDS SUMMARY | 2022-02-14 10:41 | XMS_ITS | Encounter Summary ---
:1970 Author Organization [employer] Address [address] [place] [address] Care Team Providers Name Role Phone Gagandeep Hinojosa MD Primary Care Provider Encounter Details Date Type Department Care Team Description 11/28/2018 Lab Visit [place] [facility] Encounter for long-term [address] (current) use of other [place] [address] medications (Primary Dx) [phone] Social History Tobacco Use Types Packs/Day Years [...] Complete Blood Count-W/Diff (11/28/2018 11:01 AM CDT) [facility] Method Time Signature WBC 8.4 3.5 - 10.5 11/28/2018 [place] x10(9)/L 11:07 AM CDT LABORATORY RBC 4.90 4.32 - 11/28/2018 [place] 5.72 11:07 AM CDT LABORATORY x10(12)/L Hemoglobin 14.7 13.5 - 11/28/2018 [place] 17.5 g/dL 11:07 AM CDT LABORATORY HCT 40.2 38.8 - 11/28/2018 [place] 50.0 % 11:07 AM CDT LABORATORY MCV 82.0 80.0 - 11/28/2018 [place] 100.0 fL 11:07 AM CDT LABORATORY MCH 30.0 27.6 - 11/28/2018 [place] 33.3 pg 11:07 AM CDT LABORATORY MCHC 36.6 (H) 31.5 - 11/28/2018 [place] 35.2 g/dL 11:07 AM CDT LABORATORY RDW 12.1 11.9 - 11/28/2018 [place] 15.5 % 11:07 AM CDT LABORATORY Platelets 253 150 - 450 11/28/2018 [place] x10(9)/L 11:07 AM CDT LABORATORY Neutrophil 5.0 1.7 - 7.0 11/28/2018 [place] Absolute 10(9)/L 11:07 AM CDT LABORATORY Lymphocyte 2.5 1.0 - 4.8 11/28/2018 [place] Absolute 10(9)/L 11:07 AM CDT LABORATORY Monocytes 0.6 0.2 - 0.9 11/28/2018 [place] Absolute 10(9)/L 11:07 AM CDT LABORATORY Eosinophil 0.2 0.0 - 0.5 11/28/2018 [place] Absolute 10(9)/L 11:07 AM CDT LABORATORY Basophil 0.0 0.0 - 0.3 11/28/2018 [place] Absolute 10(9)/L 11:07 AM CDT LABORATORY Specimen Anatomical Collection Method / Collection Time Recei abimael Time (Source) Location / Volume Laterality Blood Venipuncture / 11/28/2018 11:01 9 Unknown AM CDT 11:01 AM CDT Vane Zarate MD LAB_1 Performing Organization Address City/State/ZIP Code Phon e Number [facility] [address] [place] [address] (ABNORMAL) Carnitine Free And Total (11/28/2018 11:01 AM CDT) P athologist Signature Carnitine 0.6 0.1 - 1.0 11/30/2018 [facility] Kristen/Free 8:38 AM CDT LABORATORIES Ratio Comment: Performed by [employer], [address] [facility] [place] [address] [email or web address], Bull Sultana MD, Lab. Director Carnitine Esterified 11 5 - 29 umol/L 11/30/2018 8:38 AM [employer] CDT Carnitine, Free 18 (L) 25 - 60 umol/L 11/30/2018 8:38 AM [employer] CDT Carnitine, Total 29 (L) 34 - 86 umol/L 11/30/2018 8:38 AM [employer] CDT Comment: Test developed and characteristics deter mined by [employer]. See Compliance Statement B : [email or web address] Specimen Anatomical Collection Method / Collection Time Recei abimael Time (Source) Location / Volume Laterality Blood Venipuncture / 11/28/2018 11: 9 Unknown AM CDT 11:01 AM CDT Vane Zarate MD LAB_1 Performing Organization Address City/State/ZIP Code Phon e Number [employer] [facility] [address] [place], [place] [address] CK, Total (11/28/2018 11:01 AM CDT) P athologist Signature CK, Total 51 30 - 200 11/28/2018 [place] U/L 3:19 PM CDT LABORATORY Specimen Anatomical Collection Method / Collection Time Recei abimael Time (Source) Location / Volume Laterality Blood Venipuncture / 11/28/2018 11: 9 Unknown AM CDT 11:01 AM CDT Vane Zarate MD LAB_1 Performing Organization Address City/State/ZIP Code Phon e Number [facility] [address] [place] [address] (ABNORMAL) Hgb A1C (11/28/2018 11:01 AM CDT) Patholo gist Method Time Signature Hemoglobin A1C 10.6 (H) <=5.6 % 11/28/2018 [facility] 5:00 PM CDT LABORATORY Specimen Anatomical Collection Method / Collection Time Recei abimael Time (Source) Location / Volume Laterality Blood Venipuncture / 11/28/2018 11:01 9 Unknown AM CDT 11:01 AM CDT Narrative [facility] - 11/28/2018 5:00 P M CDT For patients not previously diagnosed with diabetes: 5.7-6.4%: Increased risk for diabetes 6.5% and greater: Diagnostic for diabete s For patients diagnosed with diabetes: <8.0%: Goal of therapy for ages 18-75 Clinicians may recommend a higher or low er goal for specific individuals. Vane Zarate MD LAB_1 Performing Organization Address City/State/ZIP Code Phon e Number [facility] [address] [place] [address] Potassium (11/28/2018 11:01 AM CDT) P athologist Signature Potassium 5.0 3.5 - 5.1 11/28/2018 [facility] mmol/L 3:19 PM CDT LABORATORY Specimen Anatomical Collection Method / Collection Time Recei abimael Time (Source) Location / Volume Laterality Blood Venipuncture / 11/28/2018 11:01 9 Unknown AM CDT 11:01 AM CDT Vane Zarate MD LAB_1 Performing Organization Address [facility] Code Phon e Number [facility] [address] [place] [address] (ABNORMAL) Sodium (11/28/2018 11:01 AM CDT) P athologist Signature Sodium 135 (L) 136 - 145 11/28/2018 [facility] mmol/L 3:19 PM CDT LABORATORY Specimen Anatomical Collection Method / Collection Time Recei abimael Time (Source) Location / Volume Laterality Blood Venipuncture / 11/28/2018 11:01 9 Unknown AM CDT 11:01 AM CDT Vane Zarate MD LAB_1 Performing Organization Address [facility] Phon e Number [facility] [address] [place] [address] Creatinine / GFR (11/28/2018 11:01 AM CDT) P athologist Signature Creatinine 0.80 0.73 - 11/28/2018 [facility] 1.18 mg/dL 3:19 PM CDT LABORATORY GFR, Estimated >60 >60 11/28/2018 [facility] mL/min/1.7 3:19 PM CDT LABORATORY 3m2 GFR, Est If >60 >60 11/28/2018 [facility] mL/min/1.7 3:19 PM CDT LABORATORY [place] 3m2 Specimen Anatomical Collection Method / Collection Time Recei abimael Time (Source) Location / Volume Laterality Blood Venipuncture / 11/28/2018 11: 9 Unknown AM CDT 11:01 AM CDT Vane Zarate MD LAB_1 Performing Organization Address City/[facility]/ZIP Code Phon e Number [facility] [address] [place] [address] T4, Total (11/28/2018 11:01 AM CDT) P athologist Signature T4, Total 6.5 5.0 - 11.0 11/28/2018 [facility] mcg/dL 7:37 PM CDT [facility] Specimen Anatomical Collection Method / Collection Time Recei abimael Time (Source) Location / Volume Laterality Blood Venipuncture / 11/28/2018 11: 9 Unknown AM CDT 11:01 AM CDT Vane Zarate MD LAB_1 Performing Organization Address City/[facility]/ZIP Code Phon e Number [address] [address] (ABNORMAL) T3, Total (11/28/2018 11:01 AM CDT) Analysis Performed At Patho logist Time Signature Triiodothyroni 75 (L) 80 - 200 11/29/2018 [facility] ne, Total ng/dL 11:38 AM CDT LABORATORIES (Total T3) Comment: REFERENCE INTERVAL: Triiodothyronine, To ora (Total T3) Access complete set of age- and/or gende r-specific reference intervals for this test in the [facility] Labo ratory Test Directory ([employer]is[employer]). Performed by [employer], [address] [place] [address] [email or web address], Bull Sultana MD, Lab. Director Specimen Anatomical Collection Method / Collection Time Recei abimael Time (Source) Location / Volume Laterality Blood Venipuncture / 11/28/2018 11:01 9 Unknown AM CDT 11:01 AM CDT Vane Zarate MD LAB_1 Performing Organization Address City/State/ZIP Code Phon e Number [facility] [address] [place], [place] [address] TSH (11/28/2018 11:01 AM CDT) P athologist Signature TSH, Sensitive 0.85 0.30 - 11/28/2018 [facility] 4.50 4:19 PM CDT LABORATORY uIU/mL Specimen Anatomical Collection Method / Collection Time Recei abimael Time (Source) Location / Volume Laterality Blood Venipuncture / 11/28/2018 11:01 9 Unknown AM CDT 11:01 AM CDT Vane Zarate MD LAB_1 Performing Organization Address City/State/ZIP Code Phon e Number [facility] [address] [place] [address] documented in this encounter Visit Diagnoses Diagnosis Encounter for long-term (current) use of other medications - Primary documented in this encounter Care Teams Automatic Lehr Operator Relationship Specialty Start Date End Date Gagandeep Hinojosa MD PCP - General 05/17/12 [address] [place], [place] [address] Vane Zarate Psychiatrist Psychiatry 03/22/12 [facility] Psychotherapist 08/04/17 [facility] Lead Applications Developer 09/13/17 documented as of this encounter
--- OUTSIDE RECORDS SUMMARY | 2022-02-14 10:41 | XMS_ITS | Encounter Summary ---
:1970 Author Organization [employer] Address [address] [place] [address] Care Team Providers Name Role Phone Gagandeep Hinojosa MD Primary Care Provider Reason for Visit Reason Comments Back Pain Lower left back Pain X 1 day Encounter Details Date Type Department Care Team Description 10/13/2018 Office Visit [facility] Gagandeep Hinojosa ft-sided low back pain without sciatica (Primary Dx); Romario Rubio MD Marital conflict 1415 [facility] . [address] [place] [address] Ave [phone] [place] [address] Social History Tobacco Use Types Packs/Day Years [...] unspecified ??? Microalbuminuria 02/04/2012 ??? LA, old 09/16/2011 ??? History of PTCA 09/16/2011 [...] disorder ([facility]) 09/15/2005 Overview Note: LW Onset: [id number] ; Bipolar I Dis FAMILY HISTORY OR [...] CAPSULE BY MOUTH EVERY DAY 0 ??? [place] Carbonate 600 MG capsule Take 600 mg [...] 1 Tablet by mouth. 01/16/2018: [facility] Received Sig: Take 1 tablet by mouth [...] unspecified documented in this encounter Care Teams Loaders Relationship Specialty Start Date End Date Gagandeep Hinojosa MD PCP - General 05/17/12 [facility] [place] [address] Vane Zarate Psychiatrist Psychiatry 03/22/12 [facility] Mental Health Psychotherapist 08/04/17 [facility] Pallet Rectifier 09/13/17 documented as of this encounter
--- OUTSIDE RECORDS SUMMARY | 2022-02-14 10:41 | XMS_ITS | Encounter Summary ---
:1970 Author Organization [facility] Address [address] [place] [address] Care Team Providers Name Role Phone Gagandeep Hinojosa MD Primary Care Provider Reason for Visit Reason Comments Post Hospital Discharge Follow Up Encounter Details Date Type Department Care Team Description 07/31/2018 Telephone [facility] Gagandeep Hinojosa, Post Hospital Discharge Medicine MD Follow Up 1415 [facility] . [address] [place] [address] [place] [address] [phone] (Wo rk) Social History Tobacco Use Types [...] follow up call completed. See doc flowsheet: HOSCO for details. documented in this encounter Plan of Treatment Not on filedocumented as of this encounter Visit Diagnoses Not on filedocumented in this encounter Care Teams Fastener Technologist Relationship Specialty Start Date End Date Gagandeep Hinojosa MD PCP - General 05/17/[address] [place] [address] Vane Zarate Psychiatrist Psychiatry 03/22/12 [facility] Mental Health Psychotherapist 08/04/17 [facility] Tube Backer 09/13/17 documented as of this encounter
--- OUTSIDE RECORDS SUMMARY | 2022-02-14 10:41 | XMS_ITS | Encounter Summary ---
:1970 Author Organization [employer] Address [address] [place] [address] Care Team Providers Name Role Phone Gagandeep Michaud MD Primary Care Provider Reason for Visit Reason Comments Refill amLODIPine (NORVASC) 10 MG t ablet [Pharmacy Med Name: AMLODIPINE 10MG TAB] Encounter Details Date Type Department Care Team Description 09/28/2018 Refill Gagandeep Storm Refil l (amLODIPine Medicine (NORVASC) 10 MG tablet [address] [Pharmacy Med Name: [place] [address] [place] [address] AMLODIPINE 10MG TAB]) [phone] (Wo rk) Social History Tobacco Use Types [...] for short term. ?? Please advise if long-term supply is appropriate ?? Last qualifying visit: [...] 81 mm Hg on 08/07/2018 Powered by [employer], Reference: [id number], 09/28/2018 9:45:25 AM CDT, Pool: MANUEL LANDAILL ([id number]) documented in this encounter Plan of Treatment Not on filedocumented as of this encounter Visit Diagnoses Diagnosis Essential hypertension (HRC) Unspecified essential hypertension Uncontrolled type 2 diabetes mellitus wi thout complication, without long-term current use of insulin documented in this encounter Care Teams Family Services Assistant Relationship Specialty Start Date End Date Gagandeep Michaud MD PCP - General 05/17/12 1415 [facility] [place] [address] Vane Zarate Psychiatrist Psychiatry 03/22/12 [facility] Mental Health Psychotherapist 08/04/17 [facility] Roulette Dealer 09/13/17 documented as of this encounter
--- OUTSIDE RECORDS SUMMARY | 2022-02-14 10:41 | XMS_ITS | Encounter Summary ---
:1970 Author Organization [employer] Address [address] [place] [address] Care Team Providers Name Role Phone Gagandeep Michaud MD Primary Care Provider Reason for Visit Reason Comments Refill metFORMIN (GLUCOPHAGE) 500 M G tablet [Pharmacy Med Name: METFORMIN 500MG TAB] Encounter Details Date Type Department Care Team Description 09/28/2018 Refill [facility] Gagandeep Michaud, Refrose mary l (metFORMIN Medicine MD (GLUCOPHAGE) [address] tablet [[place] [address] [place] [address] Name: METFORMIN 500MG [phone] (Wo rk) TAB]) Social History Tobacco Use [...] MOUTH TWICE DAILY WITH MEALS Interface, Out [employer] Query - 09/28/2018 9:45 AM CDT metFORMIN [...] : 10.9 % on 07/27/2018 Powered by [employer], Reference: [id number], 09/28/2018 9:45:25 AM CDT, Pool: MANUEL MOORE ([id number]) documented in this encounter Plan of Treatment Not on filedocumented as of this encounter Visit Diagnoses Diagnosis Uncontrolled type 2 diabetes mellitus wi thout complication, without long-term current use of insulin documented in this encounter Care Teams Metal Fence Erector Relationship Specialty Start Date End Date Gagandeep Michaud MD PCP - General 1/23/13 1415 [facility] Marlena [place] [address] Vane Zarate Psychiatrist Psychiatry 03/22/12 [facility] Mental Health Psychotherapist 08/04/17 [facility] Sample Carrier 09/13/17 documented as of this encounter
--- OUTSIDE RECORDS SUMMARY | 2022-02-14 10:41 | XMS_ITS | Encounter Summary ---
:1970 Author Organization [employer] Address [address] [place] [address] Care Team Providers Name Role Phone Gagandeep Hinojosa MD Primary Care Provider Reason for Visit Reason Comments Patient Calling Back insulin regular (NOVOLIN R) 100 UNIT/ML injection Medication Questions Encounter Details Date Type Department Care Team Description 08/07/2018 Telephone [facility] Gagandeep Hinojosa, Anastasia nt Calling Back Medicine MD (insulin regular [address] (NOVOLIN R) 100 UNIT/[place] [address] [place] [address] injection); Medication [phone] (Wo rk) Questions Social History Tobacco Use [...] Novolin R. Clinician Next Step: Route to [place] Nurse pool to follow up Specific Request(s): [...] [place] [phone] if before 3pm or then triage Gagandeep Hinojosa MD - 08/08/2018 10:07 PM CDT Please contact patient. Document in medication list his current dose of regular insulin and route results back to me Dominique Hill - 08/07/2018 4:27 PM CDT Clinician Action: Input needed regarding Medication Clinician Next Step: Route to Wastewater Project Manager pool Specific Request(s): 1. See below information [...] Sliding Scale +1 unit/50 >150 Kenneth PH: [phone] documented in this encounter Plan of Treatment Not on filedocumented as of this encounter Visit Diagnoses Diagnosis Uncontrolled type 2 diabetes mellitus wi th complication, with long-term current use of insulin documented in this encounter Care Teams Tank Cleaning Supervisor Relationship Specialty Start Date End Date Gagandeep Hinojosa MD PCP - General 05/17/12 1415 [facility] [place] [address] Vane Zarate Psychiatrist Psychiatry 03/22/12 [facility] Psychotherapist 08/04/17 [facility] Bullet Swaging Machine Operator 09/13/17 documented as of this encounter
--- OUTSIDE RECORDS SUMMARY | 2022-02-14 10:41 | XMS_ITS | Encounter Summary ---
:1970 Author Organization [employer] Address [address], [place] [address] Care Team Providers Name Role Phone Gagandeep Hinojosa MD Primary Care Provider Reason for Visit Reason Comments Patient Care Coordination Encounter Details Date Type Department Care Team Description 12/07/2018 Care Coord [facility] Deborah Rodrigues Patien t Care Phone Medicine [facility] Coordination [address] [place] [address] [place] [address] [place] [address] [phone] Social History Tobacco Use Types Packs/Day Years [...] [place]. [place] [phone] if he calls the clinic. documented in this encounter Plan of Treatment Not on filedocumented as of this encounter Visit Diagnoses Diagnosis Health skilled nursing, active care coordinati on - Primary documented in this encounter Care Teams Anesthesiologist Assistant Certified Relationship Specialty Start Date End Date Gagandeep Hinojosa MD PCP - General 05/17/12 76[address] [facility] [place] [address] Vane Zarate Psychiatrist Psychiatry 03/22/12 [facility] Psychotherapist 08/04/17 [facility] Fuel Assembler 09/13/17 documented as of this encounter
--- OUTSIDE RECORDS SUMMARY | 2022-02-14 10:41 | XMS_ITS | Encounter Summary ---
:1970 Author Organization [facility] Address [address], [place] [address] Care Team Providers Name Role Phone Gagandeep Hinojosa MD Primary Care Provider Reason for Visit Reason Comments APPOINTMENT REQUEST Encounter Details Date Type Department Care Team Description 07/27/2018 Care Coord Phone Judy Luke R N APPOINTMENT REQUEST [facility] 1415 [facility] [address] [place] [address] . KATIANA Hernandez [address] K[place] VELAZQUEZ [phone] Social History Tobacco Use Types Packs/Day Years [...] Hinojosa: ?CARE COORDINATION - PRIMARY CARE CON* [#[id number]] ?Priority: Routine ??Class: [facility] Location ?Comment:New injectables vs Invokana ?Associated Diagnoses ?E11.65 Uncontrolled type 2 diabetes mellitus with hyperglycemia (HRC) ?Reason for referral? -> Difficulty managing conditions, treatments, or ? medications To Scheduling, please assist with appt. documented in this encounter Plan of Treatment Not on filedocumented as of this encounter Visit Diagnoses Not on filedocumented in this encounter Care Teams Mdm Developer Relationship Specialty Start Date End Date Gagandeep Hinojosa MD PCP - General 05/17/[address] [place], [place] [address]KATIANA Rodriguez [address] Vane Zarate Psychiatrist Psychiatry 03/22/12 [facility] Psychotherapist 08/04/17 [facility] Engine Assembler 09/13/17 documented as of this encounter
--- OUTSIDE RECORDS SUMMARY | 2022-02-14 10:41 | XMS_ITS | Encounter Summary ---
:1970 Author Organization [employer] Address [address], [place] [address] Care Team Providers Name Role Phone Gagandeep Hinojosa MD Primary Care Provider Reason for Visit Reason Comments DIABETES EDUCATION Encounter Details Date Type Department Care Team Description 08/01/2018 Care Coord Office Judy Luke RN DIABETES EDUCATION Visit Medicine [address] . KATIANA Gerber [address] [place] VELAZQUEZ [phone] Social History Tobacco Use Types Packs/Day Years [...] RN - 08/01/2018 1:00 PM CDT RN Software Analyst Visit Pt: Timurcole Krishnamurthy Referred by: Gagandeep [...] work since he left hisjob at the [employer] last summer. Rustam reports he has been connected with [employer], a resource provided by his therapist, that [...] Finance, Emotional and Transportation. BG Goals: Health [facility] Lab Goal <7 [...] SMBG tid as directed, record readings. RN Software Analyst as needed for questions. Scheduled follow up [...] insulin documented in this encounter Care Teams Seed Laboratory Assistant Relationship Specialty Start Date End Date Gagandeep Hinojosa MD PCP - General 05/17/12 1415 [facility] [place] Gerber [address] Vane Zarate Psychiatrsamantha Psychiatry 03/22/12 [facility] Psychotherapist 08/04/17 [facility] Sheet Metal Assembler And Riveter 09/13/17 documented as of this encounter
--- OUTSIDE RECORDS SUMMARY | 2022-02-14 10:41 | XMS_ITS | Encounter Summary ---
:1970 Author Organization [employer] Address [address], [place] [address] Care Team Providers Name Role Phone Gagandeep Hinojosa MD Primary Care Provider Reason for Visit Reason Comments Pharmacy Encounter Details Date Type Department Care Team Description 08/02/2018 Telephone [facility] Gagandeep Hinojosa MD Pharmacy 1415 [facility] . 1415 [place] [address] [place] [address] [phone] (Wo rk) Social History Tobacco Use Types [...] on filedocumented in this encounter Care Teams Cp Bleacher Operator Relationship Specialty Start Date End Date Gagandeep Hinojosa MD PCP - General 05/17/12 [facility] [facility] [place] Gerber [address] Vane Zarate Psychiatrist Psychiatry 03/22/12 [facility] Psychotherapist 08/04/17 [facility] Automobile Travel Club Counselor 09/13/17 documented as of this encounter
--- OUTSIDE RECORDS SUMMARY | 2022-02-14 10:41 | XMS_ITS | Encounter Summary ---
:1970 Author Organization [facility] Address [address], [place] [address] Care Team Providers Name Role Phone Gagandeep Hinojosa MD Primary Care Provider Reason for Referral (Routine) - Closed Specialty Diagnoses / Procedures Referred By Contact Refer red To Contact Diagnoses Chest pain at rest Zara Fox MD Procedures Outreach Nuclear Study [address] [place], [place] [address] Referral ID Status Reason Start Date Expiration Date Visits Requ ested Visits Authorized [id number] Closed 08/16/2018 11/15/2019 1 1 Encounter Details Date Type Department Care Team Description 08/04/2018 Hospital Encounter Heart & Vascular Chest pain at rest Center Nuclear (Primary Dx) Cardiology [address] [employer] [facility] [place] [address] Social History Tobacco Use Types [...] MG daily. tabletIndications: ASHD (arteriosclerotic heart disease) ([facility]), Hyperlipidemia with target LDL less than 70 ([facility]) blood glucose (ONE Use to [...] by mouth 0 12/2408/28/2019 MG capsule daily. [place] Carbonate 600 Take 600 mg by mouth [...] NM CARDIAC MPI STRESS TEST ( (Order [id number]) STRESS TEST PHARMACOLOGICAL ( (Order [id number]) Original Order Diagnosis: Chest pain at rest [R07.9 (ICD-10-CM)] Chest pain at rest [R07.9 (ICD-10-CM)] Reading Provider(s) Juan Daniel Caba MD PACs images are not viewable in [employer]. See text report below. 08/20/2018 4:54 [...] patient. Patient Information Patient Name Timur Krishnamurthy ([id number]) Sex Male documented in this encounter Plan [...] Results NM CARDIAC MPI STRESS TEST ( [id number]) (Order [id number]) STRESS TEST PHARMACOLOGICAL (Accession A [id number]) (Order [id number]) Original Order Diagnosis: Chest pain at rest [R07.9 (ICD-10-CM)] Chest pain at rest [R07.9 (ICD-10-CM)] ? ? Reading Provider(s) Juan Daniel Caba MD PACs images are not viewable in [employer]. See text report below. 08/20/2018 4:54 [...] This result is not viewable by [facility]. Patient Information Patient Name Timur Krishnamurthy ([id number]) Sex Male Procedure Note Bailee Reynoldslys - 08/04/2018 11:59 PM CD T Results NM CARDIAC MPI STRESS TEST ( [id number]) (Order [id number]) STRESS TEST PHARMACOLOGICAL (Accession A [id number]) (Order [id number]) Original Order Diagnosis: Chest pain at rest [R07.9 (ICD-10-CM)] Chest pain at rest [R07.9 (ICD-10-CM)] Reading Provider(s) Juan Daniel Caba MD PACs images are not viewable in [employer]. See text report below. 08/20/2018 4:54 [...] 89 beats per minute at baseline and shurti to 121 bats per minute during the [...] humphrey. Patient Information Patient Name Timur Krishnamurthy ([id number]) Sex Male Zara Fox MD PN CARDIAC SERVICES ORDERABL ES Performing Organization Address City/State/ZIP Code Phon e Number POCT PN POCT documented in this encounter Visit Diagnoses Diagnosis Chest pain at rest - Primary Chest pain, unspecified documented in this encounter Care Teams Chucking And Boring Machine Operator Relationship Specialty Start Date End Date Gagandeep Hinojosa MD PCP - General 05/17/12 1415 [facility] [place] [address] Vane Zarate Psychiatrsamantha Psychiatry 03/22/12 [facility] Psychotherapist 08/04/17 [facility] Terrestrial Ecologist 09/13/17 documented as of this encounter
--- OUTSIDE RECORDS SUMMARY | 2022-02-14 10:42 | XMS_ITS | Encounter Summary ---
:1970 Author Organization [employer] Address [address] [place] [address] Care Team Providers Name Role Phone Gagandeep Hinojosa MD Primary Care Provider Reason for Visit Reason Comments HC Face To Face Visit Encounter Details Date Type Department Care Team Description 10/20/2017 Care Coord Judy Luke RN [facility] Face To Face Office Visit Medicine 1415 [facility] Visit [address] [place] [address] Social History Tobacco Use Types Packs/Day Years [...] RN - 10/20/2017 9:00 AM CDT RN Ship Laborer Visit Pt: Timur Krishnamurthy Referred by: Gagandeep [...] is a joint visit with Lesly Rodrigues [facility] Ship Laborer. Both Lesly and I noticed and commented that Rustam appears to be more relaxed this week, he is visibly morecalm and less jittery today. Rustam attributes this change to cutting back his caffeine consumption and the recent change in his medication. Mental Health See note from Lesly Rodrigues [facility] Ship Laborer for documentation. Medication I reviewed Rustam's medication [...] to work outor play basketball at the [facility], but it is free to walk [...] prescription for diabetic shoes and inserts through [employer], he is excited to receive his first pair of [employer]. He also received foot care through [facility] and was advised to continue to go every 3 months. Smoking Cessation See note from Lesly Rodrigues, [facility] Ship Laborer for documentation. Swelling The swelling in Rustam's [...] identified: Finance and Emotional. BG Goals: Health [facility] Lab Goal <7 Pre-meal: 70-130 mg/dL PPG: [...] of this encounter Visit Diagnoses Diagnosis Health long term, active care coordinati on - Primary Type 2 diabetes mellitus with foot ulcer , with long-term current use of insulin (HRC) Bipolar I disorder (HRC) Bipolar I disorder, most recent episode (or current) unspecified documented in this encounter Care Teams Marine Superintendent Relationship Specialty Start Date End Date Gagandeep Hinojosa MD PCP - General 05/17/[address] [place] [address] [place] Gerber [address] Vane Zarate Psychiatrist Psychiatry 03/22/12 [facility] Psychotherapist 08/04/17 [facility] Landcare Officer 09/13/17 documented as of this encounter
--- OUTSIDE RECORDS SUMMARY | 2022-02-14 10:42 | XMS_ITS | Encounter Summary ---
:1970 Author Organization [employer] Address [address] [place] [address] Care Team Providers Name Role Phone Gagandeep Hinojosa MD Primary Care Provider Encounter Details Date Type Department Care Team Description 07/27/2018 Lab Visit [facility] Uncontrolled type [address] mellitus with hyperglycemia [place] Vigil [address] ([facility]) [phone] Social History Tobacco Use Types Packs/Day Years [...] Hemoglobin (HB A1C) (07/27/2018 2:02 PM CDT) [facility] gist Method Time Signature Hemoglobin A1C 10.9 (H) <=5.6 % 07/27/2018 [place] (Rapid) 2:15 PM CDT LABORATORY Specimen Anatomical Collection Method / Collection Time Recei abimael Time (Source) Location / Volume Laterality Blood Venipuncture / 07/27/2018 2:02 07/27/2018 2:03 Unknown PM CDT PM CDT Narrative [place] [facility] - 07/27/2018 2:15 PM CDT This Rapid A1c test is designed for charlotte toring patients with an established diagnosis of diabetes mellitus. This rapid method is not suitable to establish the initial diagnosis of diabetes mellitus. Performe d using Point of Care Instrumentation. Gagandeep Hinojosa MD LAB_1 Performing Organization Address City/State/ZIP Code Phon e Number [facility] 14[address] [facility] [place] [address] [phone] documented in this encounter Visit Diagnoses Diagnosis Uncontrolled type 2 diabetes mellitus wi th hyperglycemia (HRC) documented in this encounter Care Teams Auto Damage Insurance Appraiser Relationship Specialty Start Date End Date Gagandeep Hinojosa MD PCP - General 05/17/12 1415 [facility] [place] [address] Vane Zarate Psychiatrist Psychiatry 03/22/12 [facility] Psychotherapist 08/04/17 [facility] Music Grapher 09/13/17 documented as of this encounter
--- OUTSIDE RECORDS SUMMARY | 2022-02-14 10:42 | XMS_ITS | Encounter Summary ---
:1970 Author Organization [employer] Address [address], [place] [address] Care Team Providers Name Role Phone Gagandeep Hinojosa MD Primary Care Provider Reason for Referral Procedure/Equipment (Routine) - Closed Specialty Diagnoses / Procedures Referred By Contact Refer red To Contact Diagnoses Type 2 diabetes mellitus with diabetic neuropathy, unspecified whether dedicated intermodal truck driver insulin use (HRC) History of diabetic ulcer of foot Edward Nino DPM [address] [place], [place] [address] Referral ID Status Reason Start Date Expiration Date Visits Requ ested Visits Authorized [id number] Closed 10/08/2017 01/07/2019 1 1 Scheduling Instructions Your provider has recommended an appoint ment with [facility]. You may call [phone] t o schedule your appointment. If you [...] of skin (HRC) Gagandeep Hinojosa MD [address] [place] [address] Referral ID Status Reason Start Date Expiration Date Visits Requ ested Visits Authorized [id number] Closed 08/15/2017 11/14/2018 1 1 Encounter Details Date Type Department Care Team Description 10/06/2017 Initial Consult [place] [address] Edward Nino, Type 2 diabetes mellitus with diabetic neuropathy, unspecified whether dedicated intermodal truck driver insulin use (HRC) (Primary Dx); Podiatric MedSurg DPSimi History of diabetic ulcer of foot [address] [facility] [address] [place] [facility] [place] [address] [place], [place] [phone] Social History Tobacco Use Types Packs/Day Years [...] 1:12 PM CDT NAME: SHARLENE VARNER MR#: [id number] CSN: [id number] AUTHENTICATING CLINICIAN: Edward Nino DPM CONFIRM #: [id number] LOC: 3239 CLINIC PROGRESS NOTE DATE OF VISIT: 10/06/2017 : 1970 47-year-old male who is seen for a diabetic foot check. He has a history of left foot ulcer, states none currently. No drainage. He has seen Khoa Armendariz RN, for foot care at [facility]. Typically wears a sandal or athletic shoe. Rarely goes barefoot or stocking-footed. Does not use any lotion on his feet. He states he does have some numbness and neuropathy in the forefoot. PAST MEDICAL HISTORY/MEDICATIONS/ALLERGIES: Reviewed in Epic. 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 He does smoke a pack of cigarettes [...] go to a foot care nurse at [facility]. Follow up with me as needed. LATA:BREANNA C: CONFIRM #: [id number] documented in this encounter Plan of Treatment Scheduled Referrals Name Type Priority Associated Diagnoses Order S chedule Orthotics Order Referral Routine Type 2 diabetes mellitus with Ordered: 10/08/2017 diabetic neuropathy, unspecified whether long ter m insulin use (HRC ) History of diabetic ulcer of foot documented as of this encounter Visit Diagnoses Diagnosis Type 2 diabetes mellitus with diabetic n europathy, unspecified whether dedicated intermodal truck driver insulin use (HRC) - Primary History of diabetic ulcer of foot documented in this encounter Care Teams Authorization Coordinator Relationship Specialty Start Date End Date Gagandeep Hinojosa MD PCP - General 05/17/12 1415 [facility] [place] Ger[place] [address] Vane Zarate Psychiatrist Psychiatry 03/22/12 [facility] Psychotherapist 08/04/17 [facility] Clod Puller 09/13/17 documented as of this encounter
--- OUTSIDE RECORDS SUMMARY | 2022-02-14 10:42 | XMS_ITS | Encounter Summary ---
:1970 Author Organization [facility] [employer] Address [address] [address] Care Team Providers Name Role Phone Gagandeep Hinojosa MD Primary Care Provider Reason for Visit Reason Comments [facility] Face To Face Visit Encounter Details Date Type Department Care Team Description 10/20/2017 Care Coord Y[facility]itza [facility] Deborah Rodrigues, [facility] Fa ce To Face Office Visit Medicine [facility] Visit [address] [place] [place] [address] [place] [address] [phone] Social History Tobacco Use Types Packs/Day Years Used Date Smoking Tobacco: Every Day Cigarettes 1 25 Smokeless Tobacco: Former Qu it: 10/25/2012 Comments: Smoking History Packs/day: Alcohol Use Standard Drinks/Week Comments No 0 (1 standard drink = 0.6 oz pure Alcoho lic Drinks/day: Amount:0; alcohol) Freq:Never; Sex Assigned at Date Recorded Not on file documented as of this encounter Progress Notes Deborah Rodrigues, [facility] - 10/20/2017 9:00 AM CDT Care Coordination Visit Pt: Timur Krishnamurthy Referred by: Gagandeep Hinojosa MD Reason for visit: Care Coordination Timur was seen alone. Discussion/actions: uRstam reports that his blood sugars are doing well and he is taking all of this medication as prescribed. Rustam went to see the poditrist, and agreed to update RN Cooling Pipe Inspector, Judy Pittman, if he has ongoing concerns with his feet. Rustam will follow-up joint SW/RN appointment in 4 weeks. Rustam reports that his mood is been not bad, and rated his mood a 7 on a scale of 1-10, 1 being very depressed and 10 being manic. He reports he is taking his medication as prescribed, and is happy that one of his antipsychotic medications was discontinued recently. I observed Rustam not having is pressured of speech, and was easier to track what he was saying. Rustam reports that he is still smokingapproximately 1 pack of cigarettes a day and having between 16 and 24 ounces of caffeine a day. Rustam stated that he is trying to stay away from social media, and improve his mental health overall. Rustam met with his mental health rn case manager hospice yesterday, and will continue to meet with her every three weeks. Rustam is also seeing his therapist on a weekly basis, which he thinks is very beneficial. Rustam is working on a regular basis and states that he is enjoying it. He continues to stay part-time, and is working on keeping up his house. Rustam denied any other concerns at this time and agreed to call if he needed anything prior to his next appointment. Patient barrier(s) to learning identified: Finance, Disease [...] bills. ?Goal: in process ? SHARED PLAN: -SW Care Coordination appointment 11/04 at 9:00. - CM appointment 11/09 at 9:30. -Therapy appointment weekly. Pt verbalized understanding and agreed with plan of care and follow up. documented in this encounter Plan of Treatment Not on filedocumented as of this encounter Visit Diagnoses Diagnosis Health half-way, active care coordinati on - Primary documented in this encounter Care Teams Blending Technician Relationship Specialty Start Date End Date Gagandeep Hinojosa MD PCP - General 05/17/12 1415 [facility] [place] [address] Vane Zarate Psychiatrsamantha Psychiatry 03/22/12 [facility] Mental [facility] Psychotherapist 08/04/17 [facility] Work Adjustment Instructor 09/13/17 documented as of this encounter
--- OUTSIDE RECORDS SUMMARY | 2022-02-14 10:42 | XMS_ITS | Encounter Summary ---
:1970 Author Organization [employer] Address [address], [place] [address] Care Team Providers Name Role Phone Gagandeep Michaud MD Primary Care Provider Reason for Visit Reason Onset Date Comments Refill 06/07/2018 amLODIPine (NORVASC) 10 MG tablet Encounter Details Date Type Department Care Team Description 06/07/2018 Refill [facility] Gagandeep Michaud, Refil l (amLODIPine Medicine (NORVASC) 10 MG tablet) 1415 [facility] . [address] [place] [address] [place], [place] [address] (Wo rk) Social History Tobacco Use Types [...] encounter Nursing Notes Shayy Haynes RN - 06/07/2018 4:56 PM CST Renewed medication per medication refill protocol. Requested Prescriptions Pending Prescriptions Disp Refills metFORMIN (GLUCOPHAGE) 500 MG tablet 360 Tablet 0 Sig: Take 2 Tablets by mouth two times a day with meals. ORIAL INTERN Interface, Out Surescripts Prov Query - 06/07/2018 3:36 PM CST metFORMIN (GLUCOPHAGE) 500 MG tablet Medication started: 01/16/2014 Last ordered by GAGANDEEP MICHAUD: 08/15/2017 (296 days ago) QTY: 360, Refills: 1, Sig: take 2 tabsby mouth two times a day with meals. (changed but equivalent) -> Refill x 3 months (until due for a(n) Rapid A1C check) Last qualifying visit: 01/16/2018 (with GAGANDEEP MICHAUD) Next scheduled visit: None GFR (CrCl) estimated: >60 ml/min on 01/19/2018 Rapid A1C : 8 % on 01/19/2018 Powered by [employer], Reference: [id number], 06/07/2018 3:36:01 PM EDITORIAL INTERN, Pool: MANUEL REFILL ([id number]) ORIAL INTERN documented in this encounter Plan of Treatment Not on filedocumented as of this encounter Visit Diagnoses Diagnosis Uncontrolled type 2 diabetes mellitus wi thout complication, without long-term current use of insulin documented in this encounter Care Teams Production Worker Relationship Specialty Start Date End Date Gagandeep Michaud MD PCP - General 05/17/12 [address]15 [place] [address] Vane Zarate Psychiatrist Psychiatry 03/22/12 [facility] Psychotherapist 08/04/17 [facility] Leacher 09/13/17 documented as of this encounter
--- OUTSIDE RECORDS SUMMARY | 2022-02-14 10:42 | XMS_ITS | Encounter Summary ---
:1970 Author Organization [employer] Address [address] [address] Care Team Providers Name Role Phone Gagandeep Hinojosa MD Primary Care Provider Reason for Referral (Routine) - Closed Specialty Diagnoses / Procedures Referred By Contact Refer red To Contact Diagnoses Chest pain, unspecified type Kailash Green DO Procedures Outreach Echocardiogram [address] [place] [address] Referral ID Status Reason Start Date Expiration Date Visits Requ ested Visits Authorized [id number] Closed 06/19/2018 09/18/2019 1 1 ING MACHINE OPERATOR Encounter Details Date Type Department Care Team Description 06/02/2018 Hospital Encounter Heart & Vascular Chest pain, unspecified Center Echocardiogra m type (Primary Dx) [address] [place] [address] Social History Tobacco Use Types Packs/Day Years [...] EVERY DAY tabletIndications: ASHD (arteriosclerotic heart disease) ([facility]), Hyperlipidemia with target LDL less than 70 ([facility]) blood glucose (ONE Use to test [...] by mouth 0 12/2408/28/2019 MG capsule daily. [place] Carbonate 600 Take 600 mg by mouth [...] Results ECHO COMPLETE W CONTRAST ( (Order [id number]) Original Order Diagnosis: CHEST PAIN, CHEST PRESSURE, CHEST TIGHTENING Reading Provider(s) Marilu Charles MD PACs images are not viewable in [facility]. See text report below. 06/02/2018 1:30 [...] Mean PG - mmHg Marilu Charles M.D. Logging Engineer ANIYAH/[place] / Lab and Collection ECHO COMPLETE W CONTRAST on 06/02/2018 Result History ECHO COMPLETE W CONTRAST on 06/02/2018 - Result Edited Hard Copy Result Report Open Hard Copy Results Report Removed from In Basket Done By Kailash Green DO on 06/03/2018 9:10 PM Patient Release Status: This result is not viewable by the patient. Patient Information Patient Name Timur Krishnamurthy ([id number]) Sex Male Room Bed Code Status 2214 ING MACHINE OPERATOR documented in this encounter Plan of Treatment Not on filedocumented as of this encounter Procedures Procedure Name Priority Date/Time Associated Comments Diagnosis OUTREACH ECHOCARDIOGRAM Routine 06/02/2018 9:51 Chest pain, R esults for this AM DIGGING MACHINE OPERATOR unspecified type procedure a re in the results section. documented in this encounter Results Outreach Echocardiogram (06/02/2018 9:51 AM DIGGING MACHINE OPERATOR) Narrative PN POCT - 06/02/2018 9:51 AM DIGGING MACHINE OPERATOR Mis Mcneil ? 06/19/2018 ??9:52 AM Results ECHO COMPLETE W CONTRAST ( [id number]) (Order [id number]) Original Order Diagnosis: CHEST PAIN, CH EST PRESSURE, CHEST TIGHTENING Reading Provider(s) Marilu Charles MD PACs images are not viewable in [facility]. See text report below. 06/02/2018 1:30 [...] Mean PG - mmHg Marilu Charles M.D. Logging Engineer ANIYAH/[place] / ?? Lab and Collection ECHO COMPLETE W CONTRAST on 06/02/2018 Result History ECHO COMPLETE W CONTRAST on 06/02/2018 - R esult Edited Hard Copy Result Report Open Hard Copy Results Report Removed from In Basket Done By Kailash Green AlvinDO batool on 06/03/2018 9:1 0 PM Patient Release Status: This result is [facility] Patient Information Patient Name Timur Krishnamurthy ([id number]) Sex Male Room Bed Code Status 2214 ?? Procedure Note Mis Mcneil - 06/19/2018 9:51 AM DIGGING MACHINE OPERATOR Results ECHO COMPLETE W CONTRAST ( [id number]) (Order [id number]) Original Order Diagnosis: CHEST PAIN, CH EST PRESSURE, CHEST TIGHTENING Reading Provider(s) Marilu Charles MD PACs images are not viewable in [facility]. See text report below. 06/02/2018 1:30 [...] Mean PG - mmHg Marilu Charles M.D. Logging Engineer ANIYAH/[place] / Lab and Collection ECHO COMPLETE [...] humphrey. Patient Information Patient Name Timur Krishnamurthy ([id number]) Sex Male Room Bed Code Status 2214 Kailash Green DO PN ECHO ORDERABLES Performing Organization Address City/State/ZIP Code Phon e Number POCT PN POCT documented in this encounter Visit Diagnoses Diagnosis Chest pain, unspecified type - Primary documented in this encounter Care Teams Pallet Stone Inserter Relationship Specialty Start Date End Date Gagandeep Hinojosa MD PCP - General 05/17/12 14[address] [facility] [place] [address] Vane Zarate Psychiatrist Psychiatry 03/22/12 [facility] Psychotherapist 08/04/17 [facility] Agent Broker 09/13/17 documented as of this encounter
--- OUTSIDE RECORDS SUMMARY | 2022-02-14 10:42 | XMS_ITS | Encounter Summary ---
:1970 Author Organization [employer] Address [address] [place] [address] Care Team Providers Name Role Phone Gagandeep Hinojosa MD Primary Care Provider Encounter Details Date Type Department Care Team Description 01/26/2018 Lab Visit [facility] Hyperkalemia [address] [facility] [place], [place] [address] Social History Tobacco Use Types Packs/Day Years [...] - 01/26/2018 11:38 AM CDT Performed at [facility], [address] [place] [address] CLIA number [id number] Gagandeep Hinojosa MD LAB_1 Performing Organization Address City/State/ZIP Code Phon e Number PN SOFT [address] [place] [address] documented in this encounter Visit Diagnoses Diagnosis Hyperkalemia Hyperpotassemia documented in this encounter Care Teams Pool Hall Inspector Relationship Specialty Start Date End Date Gagandeep Hinojosa MD PCP - General 05/17/12 1415 [facility] [place] [address] Vane Zarate Psychiatrist Psychiatry 03/22/12 [facility] Health Psychotherapist 08/04/17 [facility] Buckle Wire Inserter 09/13/17 documented as of this encounter
--- OUTSIDE RECORDS SUMMARY | 2022-02-14 10:42 | XMS_ITS | Encounter Summary ---
:1970 Author Organization [employer] Address [address] [place] [address] Care Team Providers Name Role Phone Gagandeep Hinojosa MD Primary Care Provider Encounter Details Date Type Department Care Team Description 01/19/2018 Lab Visit [facility] Encounter for long-term [address] (current) use of [place] [address] medications [phone] Social History Tobacco Use Types Packs/Day Years [...] - 01/19/2018 4:07 PM [place] [address] CLIA number [id number] Joey Zarate MD LAB_1 Performing Organization Address City/State/ZIP Code Phon e Number PN SOFT [address] [place] [address] T3, Free, Serum (01/19/2018 11:41 AM CDT) athologist Signature Triiodothyronin 2.5 1.7 - 3.7 PN SOFT e, Free pg/mL Specimen Anatomical Collection Method Collection Time Receive d Time (Source) Location / / Volume Laterality 01/19/2018 11:41 01/19/2018 3:07 AM CDT PM CDT Narrative PN SOFT - 01/19/2018 4:07 PM CDT Performed at [place] [address] [place] [address] CLIA number [id number] .Results faxed to Jennifer Zarate M.D [phone], 01/19/2018,16:15, by [place]RO[place] Joey Zarate MD LAB_1 Performing Organization Address [facility] Code Phon e Number PN SOFT [address] [place] [address] (ABNORMAL) TSH (01/19/2018 11:41 AM CDT) Patholo gist Method Time Signature Thyroid 4.52 (H) 0.30 - PN SOFT Stimulating 4.50 Hormone uIU/mL Specimen Anatomical Collection Method Collection Time Receive d Time (Source) Location / / Volume Laterality 01/19/2018 11:41 01/19/2018 3:07 AM CDT PM CDT Narrative PN SOFT - 01/19/2018 4:07 PM CDT Performed at [facility], [facility] [place] [address] CLIA number [id number] Joey Zarate MD LAB_1 Performing Organization Address [facility] Code Phon e Number PN SOFT [address] [place] [address] (ABNORMAL) Sodium (01/19/2018 11:41 AM CDT) P athologist Signature Sodium 135 (L) 136 - 145 PN SOFT mmol/L Specimen Anatomical Collection Method Collection Time Receive d Time (Source) Location / / Volume Laterality 01/19/2018 11:41 01/19/2018 2:49 AM CDT PM CDT Narrative PN SOFT - 01/19/2018 3:54 PM CDT Performed at [facility], [address] [place] [address] CLIA number [id number] Joey Zarate MD LAB_1 Performing Organization Address [facility] Phon e Number PN SOFT [address] [place] [address] (ABNORMAL) Creatinine / GFR (01/19/2018 11:41 AM [...] - 01/19/2018 3:54 PM CDT Performed at [facility], [address] [place] [address] CLIA number [id number] Joey Zarate MD LAB_1 Performing Organization Address [facility] Phon e Number PN SOFT [address] [place] [address] [place] (01/19/2018 11:41 AM CDT) Analysis Performed At Patho logist Time Signature Date Last Dose 01-19-2018 PN SOFT Lith Time Last Dose 730 am PN SOFT [place] Level 0.73 0.50 - PN SOFT 1.10 mmol/L Specimen Anatomical Collection Method Collection Time Receive d Time (Source) Location / / Volume Laterality 01/19/2018 11:41 01/19/2018 3:09 AM CDT PM CDT Narrative PN SOFT - 01/19/2018 3:38 PM CDT Performed at [facility], [address] [place] [address] CLIA number [id number] Joey Zarate MD LAB_1 Performing Organization Address [facility] Phon e Number PN SOFT [address] [place] [address] (ABNORMAL) Hgb A1c (01/19/2018 11:41 AM CDT) P athologist Signature HGB A1C 8.0 (H) 4.0 - 5.6 % PN SOFT Specimen Anatomical Collection Method Collection Time Receive d Time (Source) Location / / Volume Laterality 01/19/2018 11:41 01/19/2018 3:10 AM CDT PM CDT Narrative PN SOFT - 01/19/2018 10:04 PM CDT Performed at [facility], [facility] [place] [address] CLIA number [id number] .Results faxed to Jennifer Zarate M.D [phone], 01/19/2018,16:15, by [place]ROE Joey Zarate MD LAB_1 Performing Organization Address City/[facility] Phon e Number PN SOFT [address] [place] [address] Call List Questions (01/19/2018 11:35 AM CDT) athologist Signature Call Back Done PN KENDAL Documented Specimen (Source) Anatomical Collection Method Collection Time Re ceived Time Location / / Volume Laterality 01/19/2018 11:35 AM CDT Narrative PN SOFT - 01/19/2018 11:35 AM CDT Performed at [facility], [address] [place] [address] CLIA number [id number] Joey Zarate MD LAB_1 Performing Organization Address [facility] Phon e Number SOFT [address] [place] [address] [phone] documented in this encounter Visit Diagnoses Diagnosis Encounter for long-term (current) use of medications Encounter for long-term (current) use of other medications documented in this encounter Care Teams Global Marketing Operations Manager Relationship Specialty Start Date End Date Gagandeep Hinoojsa MD PCP - General 05/17/[address] [place] [address] Vane Zarate Psychiatrist Psychiatry 03/22/12 [facility] Psychotherapist 08/04/17 [facility] Records Analyst 09/13/17 documented as of this encounter
--- OUTSIDE RECORDS SUMMARY | 2022-02-14 10:42 | XMS_ITS | Encounter Summary ---
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 He has an appointment on 09/13/17 at 8 am. States, recently had Surgery and he needs to be with her tomorrow. He prefers to speak with you byphone instead of at [facility] 09/13/17 at 8am. Patient Timur may be contacted at . documented in this encounter Plan of Treatment Not on filedocumented as of this encounter Visit Diagnoses Not on filedocumented in this encounter Care Teams Therapist Occupational Relationship Specialty Start Date End Date Gagandeep Hinojosa MD PCP - General 05/17/[address] [place] [address] Vane Zarate Psychiatrist Psychiatry 03/22/12 [facility] Psychotherapist 08/04/17 [facility] Boat Detailer 09/13/17 documented as of this encounter
--- OUTSIDE RECORDS SUMMARY | 2022-02-14 10:42 | XMS_ITS | Encounter Summary ---
:1970 Author Organization [employer] Address [address] [place] [address] Care Team Providers Name Role Phone Gagandeep Hinojosa MD Primary Care Provider Reason for Visit Reason Onset Date Comments Refill 01/11/2018 Encounter Details Date Type Department Care Team Description 01/11/2018 [facility] Gagandeep Hinojosa MD Refill 14[address] [facility] . [address] [place] [address] [place] [address] [phone] (Wo rk) Social History Tobacco Use Types [...] 11:01 AM CDT I will route to urgent care technician as he has appt with her tomorrow. [...] - 01/26/2018 11:38 AM CDT Performed at [facility], [address] [place] [address] CLIA number [id number] Gagandeep Hinojosa MD LAB_1 Performing Organization Address City/State/ZIP Code Phon e Number PN SOFT [address] [place] [address] documented in this encounter Visit Diagnoses Diagnosis Hyperkalemia - Primary Hyperpotassemia Uncontrolled type 2 diabetes mellitus wi th microalbuminuria, with long-term current use of insulin Hyperkalemia Hyperpotassemia documented in this encounter Care Teams Inspector Poising Relationship Specialty Start Date End Date Gagandeep Hinojosa MD PCP - General 05/17/12 [address] [place] [address] Vane Zarate Psychiatrsamantha Psychiatry 03/22/12 [facility] Psychotherapist 08/04/17 [facility] Refrigerator Car Icer 09/13/17 documented as of this encounter
--- OUTSIDE RECORDS SUMMARY | 2022-02-14 10:42 | XMS_ITS | Encounter Summary ---
:1970 Author Organization [email or web address] Address [address] [place] [address] Care Team Providers Name Role Phone Gagandeep Hinojosa MD Primary Care Provider Reason for Visit Reason Comments HC Face To Face Visit Encounter Details Date Type Department Care Team Description 02/15/2018 Care Coord Judy Luke RN [facility] Face To Face Office Visit Medicine 1415 [facility] Visit [address] [place] [address] Social History Tobacco Use Types Packs/Day Years [...] RN - 02/15/2018 11:00 AM CDT RN Senior It Business Analyst Visit Pt: Timur Krishnamurthy Referred by: Gagandeep [...] is a joint visit with Lesly Rodrigues, [facility] Senior It Business Analyst. Mental Health and Smoking Cessation See Lesly's [...] Finance, Emotional and Transportation. BG Goals: Health Assisted Lab Goal <7 Pre-meal: 70-130 mg/dL PPG: [...] Continue using sliding scale, as prescribed. RN Senior It Business Analyst as needed for questions. Scheduled follow up on 02/28/18, bring BG readings. Rustam to call if symptoms of hypoglycemia or readings < 70 mg/dL. Rustam verbalized understanding and agreed with plan of care and follow up. documented in this encounter Plan of Treatment Not on filedocumented as of this encounter Visit Diagnoses Diagnosis Health fdc, active care coordinati on - Primary Type 2 diabetes mellitus with insulin th fan ([facility]) documented in this encounter Care Teams Steel Buffer Relationship Specialty Start Date End Date Gagandeep Hinojosa MD PCP - General 05/17/12 [address] [place] [address] Vane Zarate Psychiatrist Psychiatry 03/22/12 [facility] Psychotherapist 08/04/17 [facility] Neonatal Critical Care Nurse 09/13/17 documented as of this encounter
--- OUTSIDE RECORDS SUMMARY | 2022-02-14 10:42 | XMS_ITS | Encounter Summary ---
:1970 Author Organization [employer] Address [address] [place] [address] Care Team Providers Name Role Phone Gagandeep Hinojosa MD Primary Care Provider Reason for Visit Reason Comments HC Face To Face Visit Encounter Details Date Type Department Care Team Description 09/22/2017 Care Coord Judy Luke RN [facility] Face To Face Office Visit Medicine 1415 [facility] Visit [address] [place] [address] Social History Tobacco Use Types Packs/Day Years [...] RN - 09/22/2017 10:00 AM CDT RN Supervisor Dock Visit Pt: Tiumr Krishnamurthy Referred by: Gagandeep Hinojosa MD Reason [...] One Touch Ultra 2 CURRENT GLUCOSE PATTERNS: Rusatm did not bring BG readings today Hypoglycemia (previous two weeks): none reported ASSESSMENT: Rustam was referred for care coordination services to assist with DM management and medication titration by Dr Hinojosa. This is a joint visit with ERLIN Salas Supervisor Dock. Both Lesly and Bucky noticed and commented that Rustam appears visibly more calm and less jittery today, he attributes this to cutting back on his caffeine consumption. Mental Health See note from ERLIN Salas Supervisor Dock for documentation. Insurance Rustam receives SSDI for [...] the meantime, Rustam has met with aninsurance computer forensics technician plans to enroll in a supplemental Medicare [...] Rustam has not been walking at the [facility], he wants to start playing basketball again. However, he struggles with motivation. I reminded Rustam of the importance of physical activity with glucose control and reducing manic energy. Smoking Cessation See note from Lesly Rodrigues, [facility] Supervisor Dock for documentation. Swelling The swelling in Rustam's LE has improved significantly. He currently has +2 edema in his L lower extremity only. Rustam showed me his foot ulcer, which I noted is completely scabbed over, without any signs of infection at this time. He is scheduled to receive foot/nail care at [facility] tomorrow. I reminded Rustam of the [...] identified: Finance and Emotional. BG Goals: Health Skilled Nursing Lab Goal <7 Pre-meal: 70-130 mg/dL PPG: [...] PLAN: [facility] of test strips [facility] [place]. Scheduled podiatry follow up appt on 10/06/17. [...] mcfp, active care coordinati on - Primary Uncontrolled type 2 diabetes mellitus wi th microalbuminuria, with long-term current use of insulin documented in this encounter Care Teams Cloud Solutions Architect Relationship Specialty Start Date End Date Gagandeep Hinojosa MD PCP - General 05/17/[address] [place] [address] [place] [address] Vane Zarate Psychiatrist Psychiatry 03/22/12 [facility] Psychotherapist 08/04/17 [facility] Jailer 09/13/17 documented as of this encounter
--- OUTSIDE RECORDS SUMMARY | 2022-02-14 10:42 | XMS_ITS | Encounter Summary ---
:1970 Author Organization [email or web address] Address [address] [place] [address] Care Team Providers Name Role Phone Gagandeep Hinojosa MD Primary Care Provider Encounter Details Date Type Department Care Team Description 01/19/2018 Notes/Orders [facility] Vane Zarate, Encounter for long-term 1415 [place] Clara[place]ilip Bonds MD (current) use of [place] [address] medications (Primary [phone] HEAVEN 210 Dx) [place], [place] [address] Social History Tobacco Use Types Packs/Day Years [...] 4:07 PM CDT Performed at [facility], [facility] [place] [address] CLIA number [id number] Joey Zarate MD LAB_1 Performing Organization Address [facility] Phon e Number PN SOFT [address] [place] [address] T3, Free, Serum (01/19/2018 11:41 AM CDT) P athologist Signature Triiodothyronin 2.5 1.7 - 3.7 PN SOFT e, Free pg/mL Specimen Anatomical Collection Method Collection Time Receive d Time (Source) Location / / Volume Laterality 01/19/2018 11:41 01/19/2018 3:07 AM CDT PM CDT Narrative PN SOFT - 01/19/2018 4:07 PM CDT Performed at [address] [address] CLIA number [id number] .Results faxed to Jennifer Zarate M.D 9,[phone], 01/19/2018,16:15, by MONROE Joey Zarate MD LAB_1 Performing Organization Address [facility] Phon e Number PN SOFT [address] [place] [address] [phone] (ABNORMAL) TSH (01/19/2018 11:41 AM CDT) [facility] gist Method Time Signature Thyroid 4.52 (H) 0.30 - PN SOFT Stimulating 4.50 Hormone uIU/mL Specimen Anatomical Collection Method Collection Time Receive d Time (Source) Location / / Volume Laterality 01/19/2018 11:41 01/19/2018 3:07 AM CDT PM CDT Narrative PN SOFT - 01/19/2018 4:07 PM CDT Performed at [address] [address] CLIA number [id number] Joey Zarate MD LAB_1 Performing Organization Address [facility] Phon e Number PN SOFT [address] [place] [address] (ABNORMAL) Sodium (01/19/2018 11:41 AM CDT) P athologist Signature Sodium 135 (L) 136 - 145 PN SOFT mmol/L Specimen Anatomical Collection Method Collection Time Receive d Time (Source) Location / / Volume Laterality 01/19/2018 11:41 01/19/2018 2:49 AM CDT PM CDT Narrative PN SOFT - 01/19/2018 3:54 PM CDT Performed at [facility], [facility] [address] [place] [address] CLIA number [id number] Joey Zarate MD LAB_1 Performing Organization Address City/[facility] Code Phon e Number PN SOFT [address] [place] [address] (ABNORMAL) Creatinine / GFR (01/19/2018 11:41 AM [...] - 01/19/2018 3:54 PM CDT Performed at [facility], [facility] 0 [place] [address] CLIA number [id number] Joey Zarate MD LAB_1 Performing Organization Address City/[facility] Code Phon e Number PN SOFT [address] [place] [address] [phone] Raysal (01/19/2018 11:41 AM CDT) Analysis Performed At Patho logis Time Signature Date Last Dose 01-19-2018 PN SOFT Lith Time Last Dose 730 am PN SOFT Raysal Raysal Level 0.73 0.50 - PN SOFT 1.10 mmol/L Specimen Anatomical Collection Method Collection Time Receive d Time (Source) Location / / Volume Laterality 01/19/2018 11:41 01/19/2018 3:09 AM CDT PM CDT Narrative PN SOFT - 01/19/2018 3:38 PM CDT Performed at [address] [address] CLIA number [id number] Joey Zarate MD LAB_1 Performing Organization Address [facility] Phon e Number PN SOFT [address] [place] [address] (ABNORMAL) Hgb A1c (01/19/2018 11:41 AM CDT) athologist Signature HGB A1C 8.0 (H) 4.0 - 5.6 % PN SOFT Specimen Anatomical Collection Method Collection Time Receive d Time (Source) Location / / Volume Laterality 01/19/2018 11:41 01/19/2018 3:10 AM CDT PM CDT Narrative PN SOFT - 01/19/2018 10:04 PM CDT Performed at [address] [address] CLIA number [id number] .Results faxed to Jennifer Zarate M.D 9,[phone], 01/19/2018,16:15, by MONROE Joey Zarate MD LAB_1 Performing Organization Address [facility] Phon e Number PN SOFT [address] [place] [address] Call List Questions (01/19/2018 11:35 AM CDT) P athologist Signature Call Back Done PN SOFT Documented Specimen (Source) Anatomical Collection Method Collection Time Re ceived Time Location / / Volume Laterality 01/19/2018 11:35 AM CDT Narrative PN SOFT - 01/19/2018 11:35 AM CDT Performed at [address] [address] CLIA number [id number] oJey Zarate MD LAB_1 Performing Organization Address [facility]/ZIP Code Phon e Number PN SOFT [address] [place] [address] [phone] documented in this encounter Visit Diagnoses Diagnosis Encounter for long-term (current) use of medications - Primary Encounter for long-term (current) use of other medications Encounter for long-term (current) use of medications Encounter for long-term (current) use of other medications documented in this encounter Care Teams Contact Acid Plant Operator Helper Relationship Specialty Start Date End Date Gagandeep Hinojosa MD PCP - General 05/17/12 1415 [facility] [place] [address] Vane Zarate Psychiatrist Psychiatry 03/22/12 [facility] Psychotherapist 08/04/17 [facility] Glaze Mixer 09/13/17 documented as of this encounter
--- OUTSIDE RECORDS SUMMARY | 2022-02-14 10:42 | XMS_ITS | Encounter Summary ---
:1970 Author Organization [employer] Address [address] [place] [address] Care Team Providers Name Role Phone Gagandeep Michaud MD Primary Care Provider Reason for Visit Reason Onset Date Comments Refill 06/07/2018 amLODIPine (NORVASC) 10 MG tablet Encounter Details Date Type Department Care Team Description 06/07/2018 Refill [facility] Gagandeep Michaud, Refil l (amLODIPine Medicine (NORVASC) 10 MG tablet) 1415 [facility] . [address] [place] [address] [place], [place] [address] (Wo rk) Social History Tobacco Use Types [...] med check for further refills per provider. SANDER Gagandeep Michaud MD - 06/08/2018 10:28 AM CST Call patient SANDER Merlyn Urias RN - 06/08/2018 10:27 AM [...] Sig: Take 1 Tablet by mouth daily. SANDER Interface, Out S[employer] Prov Query - 06/07/2018 [...] 76 mm Hg on 01/16/2018 Powered by [employer], Reference: [id number], 06/07/2018 3:34:49 PM EDGE SANDER, Pool: MANUEL LANDACHIP ([id number]) SANDER documented in this encounter Plan of Treatment Not on filedocumented as of this encounter Visit Diagnoses Diagnosis Uncontrolled type 2 diabetes mellitus wi thout complication, without long-term current use of insulin documented in this encounter Care Teams Parakeet Raiser Relationship Specialty Start Date End Date Gagandeep Michaud MD PCP - General 05/17/12 1415 [facility] [place] [address] Vane Zarate Psychiatrist Psychiatry 03/22/12 [facility] Psychotherapist 08/04/17 [facility] Bench Shear Operator 09/13/17 documented as of this encounter
--- OUTSIDE RECORDS SUMMARY | 2022-02-14 10:42 | XMS_ITS | Encounter Summary ---
:1970 Author Organization [email or web address] Address [address] [place] [address] Care Team Providers Name Role Phone Gagandeep Hinojosa MD Primary Care Provider Reason for Visit Reason Comments [facility] Phone Visit Encounter Details Date Type Department Care Team Description 02/08/2018 Care Coord Phone Judy Luke R N [facility] Phone Visit Medicine 1415 [facility] 1415 [facility] [place] [address] [place] [address] [phone] Social History Tobacco Use Types Packs/Day Years [...] RN - 02/08/2018 10:29 AM CDT RN Rent And Housing Investigator - Diabetes Follow-Up Current diabetes medication regimen: [...] of this encounter Visit Diagnoses Diagnosis Health shelter, active care coordinati on - Primary Type 2 diabetes mellitus with insulin th fan (HRC) documented in this encounter Care Teams Senior Physician Relationship Specialty Start Date End Date Gagandeep Hinojosa MD PCP - General 05/17/[address] [place] [address] [place] [address] Vane Zarate Psychiatrist Psychiatry 03/22/12 [facility] Health Psychotherapist 08/04/17 [facility] Commercial Front Load Operator 09/13/17 documented as of this encounter
--- OUTSIDE RECORDS SUMMARY | 2022-02-14 10:42 | XMS_ITS | Encounter Summary ---
:1970 Author Organization [email or web address] Address [address], [place] [address] Care Team Providers Name Role Phone Gagandeep Hinojosa MD Primary Care Provider Encounter Details Date Type Department Care Team Description 01/16/2018 Lab Visit [facility] Hyponatremia 1415 [facility] . [place], [place] [address] Social History Tobacco Use Types Packs/Day Years [...] - 01/16/2018 6:36 PM CDT Performed at [facility], [address] [place] [address] CLIA number [id number] Gagandeep Hinojosa MD LAB_1 Performing Organization Address City/State/ZIP Code Phon e Number PN SOFT [address] [place] [address] documented in this encounter Visit Diagnoses Diagnosis Hyponatremia Hyposmolality and/or hyponatremia documented in this encounter Care Teams Manager Surgical Relationship Specialty Start Date End Date Gagandeep Hinojosa MD PCP - General 05/17/12 1415 [place], [place] [address] Vane Zarate Psychiatrsamantha Psychiatry 03/22/12 [facility] Psychotherapist 08/04/17 [facility] Systems Support Specialist 09/13/17 documented as of this encounter
--- OUTSIDE RECORDS SUMMARY | 2022-02-14 10:42 | XMS_ITS | Encounter Summary ---
:1970 Author Organization [employer] Address [address] [place] [address] Care Team Providers Name Role Phone Gagandeep Hinojosa MD Primary Care Provider Reason for Visit Reason Comments HC Face To Face Visit Encounter Details Date Type Department Care Team Description 01/12/2018 Care Coord Judy Luke RN [facility] Face To Face Office Visit Medicine 1415 [facility] Visit [address] [place] [address] Social History Tobacco Use Types Packs/Day Years [...] RN - 01/12/2018 10:00 AM CDT RN Farm Implement Engine Mechanic Visit Pt: Timur Krishnamurthy Referred by: Gagandeep [...] is a joint visit with Lesly Rodrigues POLICE CLERK. He was hospitalized from 11/26-01/09 at [facility] for mental health and suicidal ideation. [...] assistance, Lesly and I recommended contacting his [facility] Mental Health Student for assistance and resources. Rustam agreed. Medication [...] Finance, Emotional and Transportation. BG Goals: Health [facility] Lab Goal <7 Pre-meal: 70-130 mg/dL PPG: [...] verify understanding. SHARED PLAN: Contact Mental Health Student for assistance with medication and insurance resources. Continue current insulin regimen for now, use sliding scale as prescribed. Resume metformin 500 mg BID, gradually increase by 500 mg every 7 days up to 1,000 mg BID. SMBG qid as directed, record readings. HOSDC with Dr Hinojosa on 01/16/18. RN Farm Implement Engine Mechanic as needed for questions. Scheduled follow up on 01/26/18, bring BG readings. Rustam to call if symptoms of hypoglycemia or readings < 70 mg/dL. Rustam verbalized understanding and agreed with plan of care and follow up. documented in this encounter Plan of Treatment Not on filedocumented as of this encounter Visit Diagnoses Diagnosis Health jail, active care coordinati on - Primary Type 2 diabetes mellitus with microalbum inuria, with long-term current use of insulin (HRC) Bipolar I disorder (HRC) Bipolar I disorder, most recent episode (or current) unspecified documented in this encounter Care Teams Manager Reimbursement Relationship Specialty Start Date End Date Gagandeep Hinojosa MD PCP - General 05/17/12 1415 [facility] [place] [address] Vane Zarate Psychiatrist Psychiatry 03/22/12 [facility] Psychotherapist 08/04/17 [facility] Student 09/13/17 documented as of this encounter
--- OUTSIDE RECORDS SUMMARY | 2022-02-14 10:42 | XMS_ITS | Encounter Summary ---
:1970 Author Organization [facility] Address [address] [place] [address] Care Team Providers Name Role Phone Gagandeep Hinojosa MD Primary Care Provider Reason for Referral Consult/Transfer Care (Routine) - Closed Specialty Diagnoses / Procedures Referred By Contact Refer red To Contact Diagnoses Uncontrolled type 2 diabetes mellitus with hyperglycemia (HRC) Gagandeep Hinojosa MD [address] [place] [address] Referral ID Status Reason Start Date Expiration Date Visits Requ ested Visits Authorized [id number] Closed 07/27/2018 10/26/2019 1 1 Scheduling Instructions Your provider has recommended care coord ination. A care cylinder steamer will call you within two weeks. If you would like to s peak with someone sooner, please contact your primary care clinic. Reason for Visit Reason Comments MEDICATION CHECK update meds Encounter Details Date Type Department Care Team Description 07/27/2018 Office Visit Gagandeep Storm type 2 diabetes mellitus with hyperglycemia (HRC) (Primary Dx); Romario Rubio MD Bipolar I disorder (HR); [address] [place] 1415 [facility] ASHD (ar teriosclerotic heart disease); Ave. Ave Hyperlipidemia LDL goal < 70; [place] [address] [place] Essential hypertension; [phone] 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, uncontrolled (HRC); [phone] Diabetic polyne uropathy associated with type 2 diabetes mellitus ([facility]); (Work) Type II diabetes mellitus with ophthalmi c manifestations, uncontrolled ([facility]); [phone] Background diab etic retinopathy ([facility]); (Fax) Nonproliferativ e diabetic retinopathy ([facility]); manager long term care curre nt use of insulin ([facility]); Type 2 diabetes mellitus with complication, with long-term current use of insulin ([facility]); Hyperlipidemia, unspecified hyperlipidemia type; Tobacco use dis [...] CAPSULE BY MOUTH EVERY DAY 0 ??? Harvey Carbonate 600 MG capsule Take 600 mg by mouth daily at bedtime. 01/16/2018: Received from: External Pharmacy Received Sig: TAKE ONE CAPSULE BY MOUTH AT BEDTIME 0 ??? metFORMIN (GLUCOPHAGE) 500 MG tablet Take 2 Tablets by mouth two times a day with meals. 360 Tablet 0 ??? multivitamin (THERAGRAN) tablet Take 1 Tablet by mouth. 01/16/2018: Received from: [facility] Received Sig: Take 1 tablet by [...] Uncontrolled type 2 diabetes mellitus with hyperglycemia ([facility]) E11.65 POCT Glycosylated Hemoglobin (HB A1C) CARE COORDINATION - PRIMARY CARE CONSULT 2. Bipolar I disorder ([facility]) F31.9 3. ASHD (arteriosclerotic heart disease) ([facility]) I25.10 atorvastatin (LIPITOR) 80 MG tablet 4. Hyperlipidemia LDL goal < 70 E78.5 atorvastatin (LIPITOR) 80 MG tablet 5. Essential hypertension ([facility]) I10 amLODIPine (NORVASC) 10 MG tablet metoprolol [...] Hemoglobin (HB A1C) (07/27/2018 2:02 PM CDT) [facility] gist Method Time Signature Hemoglobin A1C 10.9 (H) <=5.6 % 07/27/2018 [facility] (Rapid) 2:15 PM CDT LABORATORY Specimen Anatomical Collection Method / Collection Time Recei abimael Time (Source) Location / Volume Laterality Blood Venipuncture / 07/27/2018 2:02 07/27/2018 2:03 Unknown PM CDT PM CDT Narrative [facility] - 07/27/2018 2:15 PM CDT This Rapid A1c test is designed for charlotte toring patients with an established diagnosis of diabetes mellitus. This rapid method is not suitable to establish the initial diagnosis of diabetes mellitus. Performe d using Point of Care Instrumentation. Gagandeep Hinojosa MD LAB_1 Performing Organization Address City/State/ZIP Code Phon e Number [facility] 14[address] [facility] [place] [address] documented in this encounter Visit Diagnoses Diagnosis Uncontrolled type 2 diabetes mellitus wi th hyperglycemia (HRC) - Primary Bipolar I disorder (HRC) Bipolar I disorder, most recent episode (or current) unspecified ASHD (arteriosclerotic heart disease) ([facility]) Coronary atherosclerosis of unspecified type of vessel, elim ira or graft Hyperlipidemia, unspecified hyperlipidem ia type [...] with ophthalmic manifestations, not stated as uncontrolled manager long term care current use of insulin (HRC) Encounter for long-term (current) use of insulin Type 2 diabetes mellitus with complicati on, with long-term current use of insulin (HRC) Tobacco use disorder (HRC) Tobacco use disorder documented in this encounter Care Teams Oven Dauber Relationship Specialty Start Date End Date Gagandeep Hinojosa MD PCP - General 05/17/12 [facility] [facility] [place] [address] Vane Zarate Psychiatrist Psychiatry 03/22/12 [facility] Psychotherapist 08/04/17 [facility] Prepared Foods Supervisor 09/13/17 documented as of this encounter
--- OUTSIDE RECORDS SUMMARY | 2022-02-14 10:42 | XMS_ITS | Encounter Summary ---
:1970 Author Organization [facility] Address [address] [place] [address] Care Team Providers Name Role Phone Gagandeep Hinojosa MD Primary Care Provider Reason for Visit Reason Comments Refill lisinopril (ZESTRIL) 10 MG t dirkt [Pharmacy Med Name: LISINOPRIL 10 MG TABLET] Encounter Details Date Type Department Care Team Description 12/05/2017 Refill Serge Daniels Refil l (lisinopril Medicine (ZESTRIL) 10 MG tablet [address] 1415 [facility] [Pharmacy Med Name: [place] [address] [place] [address] LISINOPRIL 10 MG [phone] (Wo rk) TABLET]) Social History Tobacco Use [...] encounter Nursing Notes Ajay Lauren, RN - 12/07/2017 8:14 AM CDT Renewed medication per medication refill protocol. Requested Prescriptions Pending Prescriptions Disp Refills lisinopril (ZESTRIL) 10 MG tablet [Pharmacy Med Name: LISINOPRIL 10 MG TABLET] 90 Tablet 1 Sig: TAKE 1 TABLET BY MOUTH EVERY DAY. Interface, Out [employer] Prov Query - 12/05/2017 9:54 PM CDT lisinopril (ZESTRIL) 10 MG tablet [Pharmacy Med Name: LISINOPRIL 10 MG TABLET] Medication started: 05/04/2012 Last ordered by SERGE RANKIN: 05/17/2017 (202 days ago) QTY: 90, Refills: 1, Sig: take 1 tab by mouth daily. (changed but equivalent) -> Cr is abnormal (0.7 mg/dL lies outside 0.73 mg/dL - 1.18 mg/dL) -> Refill x 6 months, qty: 90, refills: 1 (until due for a(n) Cr check and K check) Last qualifying visit: 05/17/2017 (with SERGE RANKIN) (A more recent visit (in Family Practice) was found) Next scheduled visit: None SBP: 126 mm Hg on 08/15/2017 DBP: 78 mm Hg on 08/15/2017 Cr: 0.7 mg/dL on 04/29/2017 K: 5 mEq/L on 04/29/2017 Powered by [employer], Reference: [id number], 12/05/2017 9:54:33 PM CDT, Pool: MANUEL REFILL ([id number]) documented in this encounter Plan of Treatment Not on filedocumented as of this encounter Visit Diagnoses Diagnosis Essential hypertension (HRC) Unspecified essential hypertension documented in this encounter Care Teams Technical Mgr Relationship Specialty Start Date End Date Gagandeep Hinojosa MD PCP - General 05/17/12 1415 [place] [address] Vane Zarate Psychiatrist Psychiatry 03/22/12 [facility] Psychotherapist 08/04/17 [facility] Sharepoint Net Developer 09/13/17 documented as of this encounter
--- OUTSIDE RECORDS SUMMARY | 2022-02-14 10:42 | XMS_ITS | Encounter Summary ---
:1970 Author Organization [employer] Address [address] [place] [address] Care Team Providers Name Role Phone Gagandeep Hinojosa MD Primary Care Provider Reason for Visit Reason Comments Medication Request Encounter Details Date Type Department Care Team Description 09/20/2017 Telephone [facility] Gagandeep Hinojosa, Medication Request 1415 [facility] [address] 1415 [facility] [phone] [place] [address] (Wo rk) Social History Tobacco [...] on filedocumented in this encounter Care Teams Motor Rebuilder Relationship Specialty Start Date End Date Gagandeep Hinojosa MD PCP - General 05/17/[address] [place] [address] [place] [address] Vane Zarate Psychiatrist Psychiatry 03/22/12 [facility] Psychotherapist 08/04/17 [facility] Kiln Tender 09/13/17 documented as of this encounter
--- OUTSIDE RECORDS SUMMARY | 2022-02-14 10:42 | XMS_ITS | Encounter Summary ---
:1970 Author Organization [employer] Address [address] [place] [address] Care Team Providers Name Role Phone Gagandeep Michaud MD Primary Care Provider Reason for Visit Reason Onset Date Comments Refill 03/07/2018 blood glucose (ONE T OUCH ULTRA BLUE) test strip Encounter Details Date Type Department Care Team Description 03/07/2018 Refill [place] [facility] Gagandeep Michaud, Refil l (blood glucose Medicine (ONE TOUCH ULTRA BLUE) [address] [facility] test strip) [place] [address] [place] [address] (Wo rk) Social History Tobacco Use Types [...] encounter Nursing Notes Alyssa Porter RN - 03/08/2018 12:27 PM CST Renewed medication per medication refill protocol. Requested Prescriptions Pending Prescriptions Disp Refills blood glucose (ONE TOUCH ULTRA BLUE) test strip 200 Strip 3 Sig: Use to test two times a day. Pharmacy dispense brand based on insurance. ICD-10: E11.29, E11.65, R80.9, Z79.4 COILER Interface, Out [employer] Prov Query - 03/07/2018 3:33 PM CST blood glucose (ONE TOUCH ULTRA BLUE) test strip Medication started: 06/09/2016 Last ordered by GAGANDEEP MICHAUD F: 01/19/2018 (47 days ago) QTY: 100, Refills: 7, Sig: use to test two times a day. pharmacy dispense brand based on insurance. icd-10: e11.29, e11.65, r80.9, z79.4 (unchanged) -> The patient is requesting a renewal from a different pharmacy. -> Due to an unreadable sig, manually ensure the patient is due for a renewal. -> Refill x 12 months (maximum allowed) -> Calculate quantity and refills manually. They could not be estimated due to missing or unreadable information. Last qualifying visit: 01/16/2018 (with GAGANDEEP MICHAUD) Next scheduled visit: None Powered by [employer], Reference: [id number], 03/07/2018 3:33:19 PM WARP COILER, Pool: MANUEL REFILL ([id number]) COILER documented in this encounter Plan of Treatment Not on filedocumented as of this encounter Visit Diagnoses Diagnosis Uncontrolled type 2 diabetes mellitus wi th microalbuminuria, with long-term current use of insulin documented in this encounter Care Teams Biomedical Manager Relationship Specialty Start Date End Date Gagandeep Michaud MD PCP - General 05/17/12 0205 [facility] [place] [address] Vane Zarate Psychiatrist Psychiatry 03/22/12 [facility] Psychotherapist 08/04/17 [facility] Solution Maker 09/13/17 documented as of this encounter
--- OUTSIDE RECORDS SUMMARY | 2022-02-14 10:42 | XMS_ITS | Encounter Summary ---
:1970 Author Organization [employer] Address [address] [address] Care Team Providers Name Role Phone Gagandeep Hinojosa MD Primary Care Provider Reason for Visit Reason Comments [facility] Phone Visit Encounter Details Date Type Department Care Team Description 09/09/2017 Care Coord Phone [facility] Deborah Rodrigues, [facility] Phone Visit Medicine [facility] [address] [facility] . [address] [place] [address] [place] [address] [phone] Social History Tobacco Use Types Packs/Day Years Used Date Smoking Tobacco: Every Day Cigarettes 1 25 Smokeless Tobacco: Former Qu it: 10/25/2012 Comments: Smoking History Packs/day: Alcohol Use Standard Drinks/Week Comments No 0 (1 standard drink = 0.6 oz pure Alcoho lic Drinks/day: Amount:0; alcohol) Freq:Never; Sex Assigned at Date Recorded Not on file documented as of this encounter Progress Notes Deborah Rodrigues, [facility] - 09/09/2017 8:00 AM CDT Supervisor Spring Up - Phone Call Contact with: Rustam Reason [...] prior to his next appointment. Shared plan: -[facility] appointment 09/13 at 8:00. Pt verbalized understanding and agreed with plan of care and follow up. documented in this encounter Plan of Treatment Not on filedocumented as of this encounter Visit Diagnoses Diagnosis Health shelter, active care coordinati on - Primary documented in this encounter Care Teams Acoustic Sensor Operator Relationship Specialty Start Date End Date Gagandeep Hinojosa MD PCP - General 05/17/12 [address] [place] [address] Vane Zarate Psychiatrist Psychiatry 03/22/12 [facility] Mental [facility] Psychotherapist 08/04/17 documented as of this encounter
--- OUTSIDE RECORDS SUMMARY | 2022-02-14 10:42 | XMS_ITS | Encounter Summary ---
:1970 Author Organization [facility] Address [address], [place] [address] Care Team Providers Name Role Phone Gagandeep Hinojosa MD Primary Care Provider Reason for Visit Reason Comments HC Face To Face Visit Encounter Details Date Type Department Care Team Description 09/13/2017 Care Coord Deborah Odom, [facility] Fa ce To Face Office Visit Medicine [facility] Visit [address] [place] [address] [facility]. [facility] [place] [address] [place] [address] [phone] Social History Tobacco Use Types Packs/Day Years Used Date Smoking Tobacco: Every Day Cigarettes 1 25 Smokeless Tobacco: Former Qu it: 10/25/2012 Comments: Smoking History Packs/day: Alcohol Use Standard Drinks/Week Comments No 0 (1 standard drink = 0.6 oz pure Alcoho lic Drinks/day: Amount:0; alcohol) Freq:Never; Sex Assigned at Date Recorded Not on file documented as of this encounter Progress Notes Deborah Rodrigues, [facility] - 09/13/2017 8:00 AM CDT Care [...] medications as prescribed. He is attending the [facility] weekly and attend individual therapy weekly, both of which he thinks are really good support for him. Rustam met with his CM, Ksenia Weiss (ph: [phone]),and he said it went well. He was [...] Primary documented in this encounter Care Teams Knot Borer Relationship Specialty Start Date End Date Gagandeep Hinojosa MD PCP - General 05/17/12 14[address] [facility] [place] [address] Vane Zarate Psychiatrsamantha Psychiatry 03/22/12 [facility] Mental Health Psychotherapist 08/04/17 [facility] CM Social Services Assistant 09/13/17 documented as of this encounter
--- OUTSIDE RECORDS SUMMARY | 2022-02-14 10:42 | XMS_ITS | Encounter Summary ---
:1970 Author Organization [employer] Address [address] [address] Care Team Providers Name Role Phone Gagandeep Hinojosa MD Primary Care Provider Reason for Visit Reason Comments HC Face To Face Visit Encounter Details Date Type Department Care Team Description 09/22/2017 Care Coord Deborah Odom, [facility] Fa ce To Face Office Visit Medicine [facility] Visit [address] [place] [address] [address] [facility] [place] [address] [place] [address] [phone] Social History Tobacco Use Types Packs/Day Years Used Date Smoking Tobacco: Every Day Cigarettes 1 25 Smokeless Tobacco: Former Qu it: 10/25/2012 Comments: Smoking History Packs/day: Alcohol Use Standard Drinks/Week Comments No 0 (1 standard drink = 0.6 oz pure Alcoho lic Drinks/day: Amount:0; alcohol) Freq:Never; Sex Assigned at Date Recorded Not on file documented as of this encounter Progress Notes Deborah Rodrigues, [facility] - 09/22/2017 10:00 AM CDT Care Coordination Visit Pt: Timur Krishnamurthy Referred by: Gagandeep Hinojosa MD Reason for visit: Care Coordination Timur was seen alone. Discussion/actions: Met for a joint SW/RN [facility] appointment today with Rustam and Judy Pittman RN. Rustam check in with Judy regarding his diabetes in the management of his physical health. I checked and with him regarding his mental health and how things are been going for him at home and work. Rustam reports that things have been going really pretty good, I have introspective view of things.He stated that he is about 90% back to myself, although he is still reporting that he is verbal,but it is no longer getting him in trouble. At times he was difficult to keep on task, but he was able to redirect and stand topic with prompting. Rustam will be meeting with his CM on 09/29, to do some goal planning, which she is looking forward to. Rustam reports that he is taking all of his medication as prescribed and denied any real manic or real low moods. Denies any thoughts of suicide. Rustamcontinues to smoke 15- 20 cigarettes a day, and has backed off his quitting plan for the time being. Shaheen ordaz stated that he is going to focus on decreasing his caffeine consumption, which she has down to about 16 ounces a day. Rustam stated that he feels caffeine plays a big role in his brisa, and would like to cut it out completely. He has been working 4-5 hours a day, 5 days a week, and really likes the structure. Rustam reports that things at home are going okay, although he worries about his , who is currently struggling with depression. We spent some time talking about Rustam focusing on his mental health, so his can focus on her own, which he agrees on. Rustam denied any other concerns at this time and scheduled a follow-up [facility] appointment in 2 weeks. This note was produced using voice [...] process ? SHARED PLAN: -MH CM appointment 09/29 at 9:30. -[facility] appointment 10/06 at 8:00. -Therapy appointment weekly. Pt verbalized understanding and agreed with plan of care and follow up. documented in this encounter Plan of Treatment Not on filedocumented as of this encounter Visit Diagnoses Diagnosis Health penitentiary, active care coordinati on - Primary documented in this encounter Care Teams Mold Machine Operator Relationship Specialty Start Date End Date Gagandeep Hinojosa MD PCP - General 05/17/12 14[address] [facility] [place] [address] Vane Zarate Psychiatrist Psychiatry 03/22/12 [facility] Psychotherapist 08/04/17 [facility] CM Heater Engineer Helper 09/13/17 documented as of this encounter
--- OUTSIDE RECORDS SUMMARY | 2022-02-14 10:42 | XMS_ITS | Encounter Summary ---
:1970 Author Organization [employer] Address [address] [place] [address] Care Team Providers Name Role Phone Gagandeep Hinojosa MD Primary Care Provider Reason for Visit Reason Comments Hospital Discharge Follow-up Encounter Details Date Type Department Care Team Description 01/16/2018 Office Visit Gagandeep Storm Bipolar I disorder (HRC) (Primary Dx); Romario Rubio MD Encounter for immunization; [address] [facility] [place] [address] [address] [phone] [place], [place] [address] Social History Tobacco Use Types [...] Body Mass Index 29.56 04/05/2017 3:18 PM LAUNCH ENGINEER documented in this encounter Progress Notes Gagandeep Hinojosa MD - 01/16/2018 1:00 PM CDT ICD-10-CM 1. Bipolar I disorder ([facility]) F31.9 2. Encounter for immunization Z23 Influenza IIV4 (Quadrivalent) 0.5 mL (14570) 3. Hyponatremia E87.1 Basic Metabolic Panel CHIEF COMPLAINT: Chief Complaint Patient presents with ??? Hospital Discharge Follow-up SUBJECTIVE : Timur Krishnamurthy is an 47 y.o. male who presents for posthospitalization recheck. [facility]odiazepine and was not comfortable at that facility, signing himself out AMA. He was subsequently readmitted to [facility], where he has more comfort andwas [...] Noted ??? Hyponatremia 01/16/2018 ??? Tobacco abuse ([facility]) 02/24/2016 ??? Tinea versicolor 07/18/2015 ??? Tobacco use disorder ([facility]) 10/26/2012 ??? Anemia 05/02/2012 Overview Note: Anemia, unspecified ??? Health fdc, active care coordination 03/22/2012 Overview Note: Backend Tester: JOSETTE Yip [phone] Care coordination focus: T2DM, financial resources Living situation: lives with spouse Important notes: SSDI, significant insulin resistance, uses Relion insulin, commonly reaches Medicare Coverage Gap See care plan under Chart Review > [facility] > [facility] CARE PLAN REPORT ??? Microalbuminuria 02/04/2012 ??? [place], old ([facility]) 09/16/2011 ??? History of PTCA 09/16/2011 Overview Note: History of PTCA 04/2011 BMS RCA ??? Obesity, Class I, BMI 30-34.9 ([facility]) 09/16/2011 Overview Note: Body mass index is 31.16 kg/(m^2). ??? Hyperlipidemia with target LDL less than 70 ([facility]) 06/08/2011 Overview Note: Hyperlipidemia LDL goal < 70 ??? ASHD (arteriosclerotic heart disease) ([facility]) 05/04/2011 ??? Erectile dysfunction 01/22/2011 Overview Note: side effect Risperdal ??? Type 2 diabetes mellitus, uncontrolled ([facility]) 12/11/2010 Overview Note: Type II or unspecified type diabetes mellitus without mention of complication, uncontrolled ([facility]) ??? Dermatophytosis of body 09/04/2010 Class: Historical Overview Note: Tinea Corporis ??? Coronary atherosclerosis ([facility]) 12/22/2009 Overview Note: LW Modifier: mod RCA, negative nuclear stress test ; CAD ??? Nonspecific abnormal results of liver function study 12/22/2009 Overview Note: Liver Function Tests Abnormal ??? Bipolar I disorder ([facility]) 09/15/2005 Overview Note: LW Onset: [id number] ; Bipolar I Dis FAMILY HISTORY OR [...] immunization Z23 Influenza IIV4 (Quadrivalent) 0.5 mL (93439) 3. Hyponatremia E87.1 Basic Metabolic Panel Follow-up: [...] - 01/16/2018 6:36 PM CDT Performed at [facility], [address] [place] [address] CLIA number [id number] Gagandeep Hinojosa MD LAB_1 Performing Organization Address City/State/ZIP Code Phon e Number PN SOFT [address] [place] [address] documented in this encounter Visit Diagnoses Diagnosis Bipolar I disorder ([facility]C) - Primary Bipolar I disorder, most recent episode (or current) unspecified Encounter for immunization Need for other specified prophylactic va ccination against single bacterial disease Hyponatremia Hyposmolality and/or hyponatremia Hyponatremia Hyposmolality and/or hyponatremia documented in this encounter Care Teams Hand Laminator Relationship Specialty Start Date End Date Gagandeep Hinojosa MD PCP - General 05/17/12 [facility] [place] [address] Vane Zarate Psychiatrsamantha Psychiatry 03/22/12 [facility] Psychotherapist 08/04/17 [facility] Aquatics Assistant Department Head 09/13/17 documented as of this encounter
--- OUTSIDE RECORDS SUMMARY | 2022-02-14 10:42 | XMS_ITS | Encounter Summary ---
:1970 Author Organization [facility] Address [address] [address] Care Team Providers Name Role Phone Gagandeep Hinojosa MD Primary Care Provider Reason for Visit Reason Comments [facility] Face To Face Visit Encounter Details Date Type Department Care Team Description 10/06/2017 Care Coord Deborah Odom, [facility] Fa ce To Face Office Visit Medicine [facility] Visit [address] [place] [address] [facility] [facility] [place] [address] [place] [address] [phone] Social History Tobacco Use Types Packs/Day Years Used Date Smoking Tobacco: Every Day Cigarettes 1 25 Smokeless Tobacco: Former Qu it: 10/25/2012 Comments: Smoking History Packs/day: Alcohol Use Standard Drinks/Week Comments No 0 (1 standard drink = 0.6 oz pure Alcoho lic Drinks/day: Amount:0; alcohol) Freq:Never; Sex Assigned at Date Recorded Not on file documented as of this encounter Progress Notes Deborah Rodrigues, [facility] - 10/06/2017 8:00 AM CDT Care Coordination Visit Pt: Timur Krishnamurthy Referred by: Gagandeep Hinojosa MD Reason for visit: Care Coordination Timur was seen alone. Discussion/actions: Met with Rustam for a scheduled HC appointment. He reports that he is been doing well and requested I review his medications for him. I went through his list of medications and noted the medication that he discontinued, and agreed to relay this information to a nurse. Rustam reports that his mood has been stable and I am not hearing any voices or getting any messages. Rustam denied any thoughts of suicide and feels like he has a good support system through providers, family and friends. Rustam continues to attend individual therapy and group therapy on a weekly basis, which he benefits from. Rustam is needing with his MH CM on a monthly basis, just until things settle down a little bit. At times throughout the appointment Rustam was tangential and needed prompting to stay on task. 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 I spoke with him about realistic goals, and focusing on positive physical and emotional health, prior to making a career change. Rustam also stated that he has been running around helping everyone else, and I need to curb check it. At times it was difficult to follow the meaning behindwhat he was saying, but he was able to redirect with prompting. Rustam stated that he continues to limit his caffeine intake to 16 ounces/day, which he feels is essential for his mental health. Rustam also stated that he is smoking under a pack a day, which he feels like is an improvement. He did say that he is only sleeping about 6 hours a night, which is a little less than I would like. We talked about good sleep patterns, and having a consistent schedule forsleep, which he was receptive to. Rustam reports that his blood sugars are doing well and he is taking all of this medication as prescribed. Rustam did say that he thinks that the cellulitis on his foot has returned, as his wound is starting to hurt more frequently. He is planning on going to see the forging die sinker today at 9:15, and agreedto update RN Body Team Member, Judy Pittman, of the results of the appointment. Rustam denied any other concerns at this time and scheduled a follow-up joint SW/RN appointment in 2 weeks. Patient barrier(s) to learning identified: Finance, Disease [...] bills. ?Goal: in process ? SHARED PLAN: -Podiatry appointment 10/06 at 9:15. -MH CM appointment 10/19 at 9:30. -SW/RN Care Coordination appointment 10/20 at 9:00. -Therapy appointment weekly. Pt verbalized understanding and agreed with plan of care and follow up. documented in this encounter Plan of Treatment Not on filedocumented as of this encounter Visit Diagnoses Diagnosis Health longterm, active care coordinati on - Primary documented in this encounter Care Teams Line Patrolman Relationship Specialty Start Date End Date Gagandeep Hinojosa MD PCP - General 05/17/12 [facility] [place] [address] Vane Zarate Psychiatrist Psychiatry 03/22/12 [facility] Mental Health Psychotherapist 08/04/17 [facility] CM Clipper Counters 09/13/17 documented as of this encounter
--- OUTSIDE RECORDS SUMMARY | 2022-02-14 10:42 | XMS_ITS | Encounter Summary ---
:1970 Author Organization [employer] Address [address], [place] [address] Care Team Providers Name Role Phone Gagandeep Hinojosa MD Primary Care Provider Reason for Visit Reason Comments [facility] Phone Visit Encounter Details Date Type Department Care Team Description 11/11/2017 Care Coord Phone [facility] Deborah Rodrigeus, [facility] Phone Visit Medicine [facility] [address] [facility] . [address] [place] [address] [place] [address] [phone] Social History Tobacco Use Types Packs/Day Years Used Date Smoking Tobacco: Every Day Cigarettes 1 25 Smokeless Tobacco: Former Qu it: 10/25/2012 Comments: Smoking History Packs/day: Alcohol Use Standard Drinks/Week Comments No 0 (1 standard drink = 0.6 oz pure Alcoho lic Drinks/day: Amount:0; alcohol) Freq:Never; Sex Assigned at Date Recorded Not on file documented as of this encounter Progress Notes Deborah Rodrigues, [facility] - 11/11/2017 8:46 AM CDT Wardrobe Coordinator - Phone Call Contact with: Rustam Reason [...] Rodrigues LICSW - 11/11/2017 8:45 AM CDT Wardrobe Coordinator - Phone Call Contact with: Rustam Reason [...] snf, active care coordinati on - Primary documented in this encounter Care Teams Research Dairy Farm Supervisor Relationship Specialty Start Date End Date Gagandeep Hinojosa MD PCP - General 05/17/12 1415 [facility] [place] [address] Vane Zarate Psychiatrist Psychiatry 03/22/12 [facility] Mental Health Psychotherapist 08/04/17 [facility] New Car Get Ready Mechanic 09/13/17 documented as of this encounter
--- OUTSIDE RECORDS SUMMARY | 2022-02-14 10:42 | XMS_ITS | Encounter Summary ---
:1970 Author Organization [employer] Address [address] [place] [address] Care Team Providers Name Role Phone Gagandeep Hinojosa MD Primary Care Provider Reason for Visit Reason Comments Lab Questions Encounter Details Date Type Department Care Team Description 01/23/2018 Telephone [employer] [facility] Gagandeep Hinojosa MD Lab Questions [address] [facility] . [address] [place] [address] [place] [address] [phone] (Wo rk) Social History Tobacco Use Types [...] on filedocumented in this encounter Care Teams Olive Picker Relationship Specialty Start Date End Date Gagandeep Hinojosa MD PCP - General 05/17/[address] [place], [place] [address] [address] Vane Zarate Psychiatrist Psychiatry 03/22/12 [facility] Health Psychotherapist 08/04/17 [facility] Manager Intranet 09/13/17 documented as of this encounter
--- OUTSIDE RECORDS SUMMARY | 2022-02-14 10:42 | XMS_ITS | Encounter Summary ---
:1970 Author Organization [employer] Address [address], [place] [address] Care Team Providers Name Role Phone Gagandeep Hinojosa MD Primary Care Provider Reason for Visit Reason Comments [facility] Face To Face Visit Encounter Details Date Type Department Care Team Description 01/26/2018 Care Coord Deborah Odom, [facility] Fa ce To Face Office Visit Medicine [facility] Visit [address] [place] [address] [facility]. [facility] [address] [place] [address] [phone] Social History Tobacco Use Types Packs/Day Years Used Date Smoking Tobacco: Former Cigarettes 1 25 Smokeless Tobacco: Former Qu it: 10/25/2012 Comments: Smoking History Packs/day: Alcohol Use Standard Drinks/Week Comments No 0 (1 standard drink = 0.6 oz pure Alcoho lic Drinks/day: Amount:0; alcohol) Freq:Never; Sex Assigned at Date Recorded Not on file documented as of this encounter Progress Notes Deborah Rodrigues, [facility] - 01/26/2018 10:00 AM CDT Care Coordination Visit Pt: Timur Krishnamurthy Referred by: Gagandeep Hinojosa MD Reason for visit: Care Coordination Timur was seen alone. Discussion/actions: Met with Rustam for a scheduled [facility] appointment. RN Environmental Manager, Judy Pittman, was present for the appointment. [...] starting to attend a Tuesday group through [facility], as it is not affordable for him to attend an IOP program. Rustam is also thinking about the possibility of attending an adult day program, if his MH CM can get funding through the [facility]. Rustam stated that he has not come [...] of this encounter Visit Diagnoses Diagnosis Health custodial, active care coordinati on - Primary documented in this encounter Care Teams Electronic Controls Repairer Supervisor Relationship Specialty Start Date End Date Gagandeep Hinojosa MD PCP - General 05/17/12 [address] [facility] [place] [address] Vane Zarate Psychiatrist Psychiatry 03/22/12 [facility] Health Psychotherapist 08/04/17 [facility] Buttonhole Facer 09/13/17 documented as of this encounter
--- OUTSIDE RECORDS SUMMARY | 2022-02-14 10:42 | XMS_ITS | Encounter Summary ---
:1970 Author Organization [employer] Address [address] [place] [address] Care Team Providers Name Role Phone Gagandeep Hinojosa MD Primary Care Provider Reason for Visit Reason Comments [facility] Face To Face Visit Encounter Details Date Type Department Care Team Description 01/26/2018 Care Coord Judy Luke RN [facility] Face To Face Office Visit Medicine 1415 [facility] Visit [address] [place] [address] [phone] Social History Tobacco Use Types Packs/Day Years [...] Patient Instructions Patient InstructionsJudy Pittman RN - 01/26/2018 10:00 AM CDT ?? Increase metformin to 1 tablet in the AM and 2 tablets in the PM for 7 days, then increase to 2 tablets in the AM and 2 tables in the PM thereafter. Always take with food. ?? Increase Tresiba to 26 units daily ?? Use Regular insulin sliding scale: Inject 1.5 units of insulin per 15 grams of carbohydrate before breakfast and dinner. Be sure to take at least 6 hours apart. Plus Blood glucose <150 = no extra insulin 151-199 = + 1 units 200-249 = + 2 units 250-299 = + 3 units 300-349 = + 4 units >350 = + 5 units documented in this encounter Progress Notes Judy Pittman RN - 01/26/2018 10:00 AM CDT RN Grinding And Spraying Supervisor Visit Pt: Timur Krishnamurthy Referred by: [...] Tresiba (insulin degludec U-200) 24 units daily ReliOn R 1.5 units per CHO choice per sliding scale Aspirin: yes - 81 mg Glucose meter: One Touch Ultra 2 CURRENT GLUCOSE PATTERNS: 01/13/18 Fastin - 351 2 hours after largest meal: 251 - 333, 428, 458 Hypoglycemia (previous two weeks): none ASSESSMENT: Rustam is here for his bi-weekly follow up, this is a joint visit with ERLIN Salas. Mental Health and Smoking Cessation See Lesly's note for documentation. Financial Concerns See Lesly's note for documentation. Medication I spent time reviewing Rustam's medication again today. He states he independently increased his Tresiba dose back to 24 units daily, but forgot to titrate his metformin as directed. Therefore, Rustam continues to take metformin 500 mg BID. He is taking it with food and denies any GI upset. I recommended Rustam increase his dose to 500 mg in the AM and 1,000 mg in the PM for 7 days, then increase to 1,000 mg BID thereafter. He agreed. Because Rustam's BG readings remain considerably elevated, I recommended increasing his Tresiba dose to 26 units daily, in addition to titrating his metformin. I also reviewed Rustam's sliding scale and how to use it. He states he is eating anywhere from 2-5 CHO choices per meal. We practiced counting CHO choices, calculating 1.5 units per CHO choice, then adding the sliding scale. Rustam was able to independently and accurately calculate his Regular insulin dose. Blood Glucose Rustam continues to SMBG before meals and HS, I thanked him for bringing in his readings today. He reports his glucose readings have increased with all the recent changes in his mental health medication. I explained that those medications can increase insulin resistance, so we will be titrating his insulin until we get his readings back to goal. Rustam is worried about his BG because his readings recently increased as high as 458. I reassured Rustam that increasing his Tresiba and metformin will help to reduce his BG and we will continue to adjust his insulin every 2 weeks, as needed. Diet Rustam states he is not eating any differently than before his hospitalization and is confident aboutcounting CHO choices. However, he does admit to resuming drinking coffee and more diet soda (32 oz per day). I reminded Rustam that caffeine is a stimulant that has caused trouble with his anxiety in the past and diet soda makes people crave more CHO. He agrees to limit his coffee to 2 cups per day andcut back his diet soda consumption, while increasing his water intake instead. Follow up Rustam will follow up with Lesly and myself in 2 weeks, but call sooner if he has questions about hisinsulin. Family/social support: Patient attended today's visit alone. He currently lives with spouse. Current activity regimen: none Patient barrier(s) to learning identified: Finance, Emotional and Transportation. BG Goals: Health Skilled Nursing Lab Goal [...] PLAN: Per DM SO, increase Tresiba to 26 units daily. Continue using sliding scale, as prescribed (med list updated). Increase metformin to 1,500 mg daily for 7 days, then 1,000 mg BID thereafter. SMBG qid as directed, record readings. RN Grinding And Spraying Supervisor as needed for questions. Scheduled follow up on 02/08/18, bring BG readings. Rustam to call if symptoms of hypoglycemia or readings < 70 mg/dL. Rustam verbalized understanding and agreed with plan of care and follow up. documented in this encounter Plan of Treatment Not on filedocumented as of this encounter Visit Diagnoses Diagnosis Health alf, active care coordinati on - Primary Uncontrolled type 2 diabetes mellitus wi th complication, with long-term current use of insulin documented in this encounter Care Teams Business Systems Analyst Relationship Specialty Start Date End Date Gagandeep Hinojosa MD PCP - General 05/17/12 [address] [place] [address] Vane Zarate Psychiatrsamantha Psychiatry 03/22/12 [facility] Psychotherapist 08/04/17 [facility] 09/13/17 documented as of this encounter
--- OUTSIDE RECORDS SUMMARY | 2022-02-14 10:42 | XMS_ITS | Encounter Summary ---
:1970 Author Organization [employer] Address [address] [place] [address] Care Team Providers Name Role Phone Gagandeep Hinojosa MD Primary Care Provider Reason for Visit Reason Comments [facility] Phone Visit Encounter Details Date Type Department Care Team Description 01/31/2018 Care Coord Phone Judy Luke R N [facility] Phone Visit Medicine 1415 [facility] 1415 [facility] [place] [address] [place] [address] [phone] Social History Tobacco Use Types Packs/Day Years [...] encounter Progress Notes Judy Pittman RN - 01/31/2018 12:43 PM CDT RN Game And Fish Protector - Diabetes Follow-Up Current diabetes medication regimen: Metformin XR 1,000 mg BID Tresiba 26 units daily Regular 1.5 units per CHO choice, plus sliding scale CURRENT GLUCOSE PATTERNS: since 01/27/19 Before breakfast: 336 - 423 HS: 299 - 417 Hypoglycemia (previous two weeks): none Assessment/education: Edwin is calling to report he increased his metformin to the full 1,000 mg BIDdose 2 days ago, but his BG readings continue to increase up into the 400s. I reviewed his insulin dosing as well, he did increase his Tresiba to 26 units daily and reports using Regular insulin 8-12 units per meal BID. I noted that with BG readings reaching 400+, Rustam would be adding 5 units of insulin on top of his 1.5 units per CHO choice. Rustam agreed that is what he is doing. Rustam is adamant that his diet has not changed and denies eating any high CHO foods lately that would explain his hyperglycemia. He attributes the increase in his BG readings to a change in his insulinresistance secondary to his mental health medication. Teach back method used to verify understanding. Shared plan: Per DM SO, increase Tresiba to 30 units daily. Continue Regular insulin 1.5 units per CHO choice plus sliding scale. SMBG qid as directed, record readings. Phone follow up next week to review readings. Scheduled follow up on 02/08/18. Call if sx of hypoglycemia or glucose readings < 70 mg/dL. Rustam verbalized understanding and agreed with plan of care and follow up. documented in this encounter Plan of Treatment Not on filedocumented as of this encounter Visit Diagnoses Diagnosis Health long term, active care coordinati on - Primary Uncontrolled type 2 diabetes mellitus wi th hyperglycemia (HRC) Uncontrolled type 2 diabetes mellitus wi th complication, with long-term current use of insulin documented in this encounter Care Teams Data Processing Auditor Relationship Specialty Start Date End Date Gagandeep Hinojosa MD PCP - General 05/17/12 [facility] [place] [address] Vane Zarate Psychiatrsamantha Psychiatry 03/22/12 [facility] Psychotherapist 08/04/17 [facility] Wire Winding Machine Operator 09/13/17 documented as of this encounter
--- OUTSIDE RECORDS SUMMARY | 2022-02-14 10:42 | XMS_ITS | Encounter Summary ---
:1970 Author Organization [facility] Address [address] [address] Care Team Providers Name Role Phone Gagandeep Hinojosa MD Primary Care Provider Reason for Visit Reason Comments [facility] Face To Face Visit Encounter Details Date Type Department Care Team Description 11/04/2017 Care Coord Deborah Odom, [facility] Fa ce To Face Office Visit Medicine [facility] Visit [address] [place] [address] [facility] [place] [address] [place] [address] [phone] Social History Tobacco Use Types Packs/Day Years Used Date Smoking Tobacco: Every Day Cigarettes 1 25 Smokeless Tobacco: Former Qu it: 10/25/2012 Comments: Smoking History Packs/day: Alcohol Use Standard Drinks/Week Comments No 0 (1 standard drink = 0.6 oz pure Alcoho lic Drinks/day: Amount:0; alcohol) Freq:Never; Sex Assigned at Date Recorded Not on file documented as of this encounter Progress Notes Deborah Rodrigues, [facility] - 11/04/2017 9:00 AM CDT Care Coordination [...] Primary documented in this encounter Care Teams Management Associate Relationship Specialty Start Date End Date Gagandeep Hinojosa MD PCP - General 05/17/[address] [place] [address] [place] [address] Vane Zarate Psychiatrist Psychiatry 03/22/12 [facility] Mental Health Psychotherapist 08/04/17 [facility] Correctional Substance Abuse Counselor 09/13/17 documented as of this encounter
--- OUTSIDE RECORDS SUMMARY | 2022-02-14 10:42 | XMS_ITS | Encounter Summary ---
:1970 Author Organization [employer] Address [address], [place] [address] Care Team Providers Name Role Phone Gagandeep Hinojosa MD Primary Care Provider Reason for Visit Reason Comments [facility] Face To Face Visit Encounter Details Date Type Department Care Team Description 02/15/2018 Care Coord Deborah Odom, [facility] Fa ce To Face Office Visit Medicine [facility] Visit [address] [place] 1415 [facility]. [facility] [place] [address] [place] [address] [phone] Social History Tobacco Use Types Packs/Day Years Used Date Smoking Tobacco: Former Cigarettes 1 25 Smokeless Tobacco: Former Qu it: 10/25/2012 Comments: Smoking History Packs/day: Alcohol Use Standard Drinks/Week Comments No 0 (1 standard drink = 0.6 oz pure Alcoho lic Drinks/day: Amount:0; alcohol) Freq:Never; Sex Assigned at Date Recorded Not on file documented as of this encounter Progress Notes Deborah Rodrigues, [facility] - 02/15/2018 11:00 AM CDT Care Coordination Visit Pt: Timur Krishnamurthy Referred by: Gagandeep Hinojosa MD Reason for visit: Care Coordination Timur was seen alone. Discussion/actions: Met with Rustam for a scheduled [facility] appointment. RN Paraprofessional Aide Teacher, Judy Pittman, was present for the appointment. [...] Rustam did say that he attends the [employer] [facility] once a week, and feels like [...] long-term, active care coordinati on - Primary documented in this encounter Care Teams Neon Glass Bender Relationship Specialty Start Date End Date Gagandeep Hinojosa MD PCP - General 05/17/12 [address] [place] [address] Vane Zarate Psychiatrist Psychiatry 03/22/12 [facility] Mental Health Psychotherapist 08/04/17 [facility] CM Cad Drafter 09/13/17 documented as of this encounter
--- OUTSIDE RECORDS SUMMARY | 2022-02-14 10:42 | XMS_ITS | Encounter Summary ---
:1970 Author Organization [facility] Address [address], [place] [address] Care Team Providers Name Role Phone Gagandeep Hinojosa MD Primary Care Provider Reason for Visit Reason Comments [facility] Face To Face Visit Encounter Details Date Type Department Care Team Description 01/12/2018 Care Coord Deborah Odom, [facility] Fa ce To Face Office Visit Medicine [facility] Visit [address] [place] [address] [facility] [address] [facility] [facility] [place] [address] [place] [address] [phone] Social History Tobacco Use Types Packs/Day Years [...] encounter Progress Notes Deborah Rodrigues, [facility] - 01/12/2018 10:00 AM CDT Care Coordination Visit Pt: Timur Krishnamurthy Referred by: Gagandeep Hinojosa MD Reason for visit: Care Coordination Timur was seen alone. Discussion/actions: Met with Rustam for a scheduled [facility] appointment. RN Elevator Installer Apprentice, Judy Pittman, was present for the appointment. [...] and he was hoping to go to [facility]. Rustam stated that he talk to them, but they do not accept Medicare, so he is planning on applying for [place]. I explained to Rustam that he is well over [place] for [place] or [place], so he would have to pay for private insurance. I encouraged him to discuss his options with his [facility] CM, who he is meeting with next [...] Primary documented in this encounter Care Teams Tap And Die Maker Technician Relationship Specialty Start Date End Date Gagandeep Hinojosa MD PCP - General 05/17/12 [facility] [place] [address] Vane Zarate Psychiatrist Psychiatry 03/22/12 [facility] Psychotherapist 08/04/17 [facility] CM Fiscal Accounting Clerk 09/13/17 documented as of this encounter
--- OUTSIDE RECORDS SUMMARY | 2022-02-14 10:43 | XMS_ITS | Encounter Summary ---
:1970 Author Organization [employer] Address [address], [place] [address] Care Team Providers Name Role Phone Gagandeep Hinojosa MD Primary Care Provider Reason for Visit Procedure/Equipment (Routine) - Incomplete Specialty Diagnoses / Procedures Referred By Contact Refer red To Contact Diagnoses Left foot pain Diabetic ulcer of left midfoot associated with type 2 diabetes mellitus, with muscle involvement without evidence of necrosis (HRC) Gagandeep Hinojosa MD Procedures XR Foot Lt 2 Views 1415 [place] [address] Referral ID Status Reason Start Date Expiration Date Visits V isits Requested Authorized [id number] Incomplete 08/05/2017 11/04/2018 1 1 Encounter Details Date Type Department Care Team Description 08/05/2017 [facility] Gagandeep Hinojosa, Left foot pain; [address] Diabetic ulcer of left midfoot associate d with type 2 diabetes mellitus, with muscle involvement without evidence of necrosis (HRC) [place] [address] 1415 [facility] [phone] [place] [phone] (Wo rk) Social History Tobacco Use [...] (HRC) documented in this encounter Care Teams Clergy Member Relationship Specialty Start Date End Date Gagandeep Hinojosa MD PCP - General 05/17/12 1415 [facility] [place] [address] Vane Zarate Psychiatrist Psychiatry 03/22/12 [facility] Psychotherapist 08/04/17 documented as of this encounter
--- OUTSIDE RECORDS SUMMARY | 2022-02-14 10:43 | XMS_ITS | Encounter Summary ---
:1970 Author Organization [employer] Address [address] [place] [address] Care Team Providers Name Role Phone Gagandeep Hinojosa MD Primary Care Provider Reason for Visit Reason Comments Questions Encounter Details Date Type Department Care Team Description 08/06/2017 Telephone [place] [facility] Gagandeep Hinojosa MD Questions 1415 [facility] . [address] [place] [address] [place] [address] [phone] (Wo rk) Social History Tobacco Use Types [...] filedocumented in this encounter Care Teams Casino Cashier Relationship Specialty Start Date End Date Gagandeep Hinojosa MD PCP - General 05/17/12 1415 [facility] [place] [address] Vane Zarate Psychiatrist Psychiatry 03/22/12 [facility] Psychotherapist 08/04/17 documented as of this encounter
--- OUTSIDE RECORDS SUMMARY | 2022-02-14 10:43 | XMS_ITS | Encounter Summary ---
:1970 Author Organization [employer] Address [address] [place] [address] Care Team Providers Name Role Phone Gagandeep Hinojosa MD Primary Care Provider Reason for Visit Reason Comments Adverse Reaction wellbutrin Encounter Details Date Type Department Care Team Description 04/29/2017 Office Visit Gagandeep Stormani a ([facility]) (Primary Dx); Romario Rubio MD Tobacco use disorder; [address] 1415 [facility] Bipolar I disorder ([facility]) [place] [address] Ave [phone] [place] [id number] Social History Tobacco Use Types Packs/Day Years [...] Comments Blood Pressure 100/68 04/29/2017 10:32 AM BLOCKER AND SEWER Pulse 142 04/29/2017 10:32 AM BLOCKER AND SEWER Temperature - - Respiratory Rate - - Oxygen Saturation - - Inhaled Oxygen Concentration - - Weight - - Height - - Body Mass Index - - documented in this encounter Progress Notes Gagandeep Hinojosa MD - 04/29/2017 10:30 AM CST ICD-10-CM 1. Hypomania (HRC) F30.8 2. Tobacco use disorder ([facility]) F17.200 3. Bipolar I disorder ([facility]) F31.9 CHIEF COMPLAINT: Chief Complaint Patient [...] Tinea versicolor 07/18/2015 ??? Diabetic eye exam ([facility]) 12/12/2013 Overview Note: Eye exam done at [facility] on 12/12/13. Mild diabetic retinopathy in right eye. ??? Tobacco use disorder ([facility]) 10/26/2012 ??? Anemia 05/02/2012 Overview Note: Anemia, unspecified ??? Health group home, active care coordination 03/22/2012 Overview Note: Lead Coater: JOSETTE Yippee [phone] Care coordination focus: T2DM, financial resources Living situation: lives with spouse Important notes: SSDI, significant insulin resistance, uses Relion insulin, commonly reaches Medicare Coverage Gap See care plan under Chart Review > [facility] [place] Reports > [facility] CARE PLAN REPORT ??? Microalbuminuria 02/04/2012 ??? SD, old ([facility]) 09/16/2011 ??? History [...] [facility]) 09/15/2005 Overview Note: LW Onset: [id number] ; Bipolar I Dis FAMILY HISTORY OR [...] Follow-up: Over the weekend of crisis develops. KER AND SEWER Gagandeep Hinojosa MD - 04/29/2017 10:30 AM CST LMTCB KER AND SEWER documented in this encounter Plan of Treatment Not on filedocumented as of this encounter Visit Diagnoses Diagnosis Hypomania (HRC) - Primary Bipolar I disorder, single manic episode , unspecified Tobacco use disorder (HRC) Tobacco use disorder Bipolar I disorder (HRC) Bipolar I disorder, most recent episode (or current) unspecified documented in this encounter Care Teams Mold Stamper Relationship Specialty Start Date End Date Gagandeep Hinojosa MD PCP - General 05/17/[address] [place] [address] [place] [address] Vane Zarate Psychiatrist Psychiatry 03/22/12 documented as of this encounter
--- OUTSIDE RECORDS SUMMARY | 2022-02-14 10:43 | XMS_ITS | Encounter Summary ---
:1970 Author Organization [employer] Address [address] [place] [address] Care Team Providers Name Role Phone Gagandeep Hinojosa MD Primary Care Provider Encounter Details Date Type Department Care Team Description 04/29/2017 Notes/Orders [facility] Vane Zarate, Need for prophylactic [address] Dilip Bonds MD chemotherapy ([place] [address]) [phone] [address] [place], [place] [address] Social History Tobacco Use Types Packs/Day Years [...] this encounter Results Ammonia (04/29/2017 11:40 AM ADVANCED REGISTERED NURSE) athologist Signature Ammonia, Blood 30 0 - 44 PN SOFT umol/L Specimen Anatomical Collection Method Collection Time Receive d Time (Source) Location / / Volume Laterality 04/29/2017 11:40 04/29/2017 2:56 AM ADVANCED REGISTERED NURSE PM ADVANCED REGISTERED NURSE Narrative PN SOFT - 04/29/2017 4:09 PM ADVANCED REGISTERED NURSE Performed at [facility], [facility] [place] [address] CLIA number [id number] .Results faxed to [phone], 04/30/2017,07:05, by GIOVANY.Results faxed to ?? Dr. Vane Zarate ?? [phone], 04/29/2017,11:46, by [facility] Joey Zarate MD LAB_1 Performing Organization Address [facility] [place] Phon e Number PN SOFT [address] [place] [address] Potassium (04/29/2017 11:40 AM ADVANCED REGISTERED NURSE) P athologist Signature Potassium 5.0 3.5 - 5.2 PN SOFT mmol/L Specimen Anatomical Collection Method Collection Time Receive d Time (Source) Location / / Volume Laterality 04/29/2017 11:40 04/29/2017 2:30 AM ADVANCED REGISTERED NURSE PM ADVANCED REGISTERED NURSE Narrative PN SOFT - 04/29/2017 3:23 PM ADVANCED REGISTERED NURSE Performed at [facility], [address] [place] [address] CLIA number [id number] .Results faxed to [phone], 04/30/2017,07:05, by GIOVANY.Results faxed to ?? Dr. Vane Zarate ?? [phone], 04/29/2017,11:46, by [facility] Joey Zarate MD LAB_1 Performing Organization Address [facility] [place] Phon e Number PN SOFT [address] [place] [address] (ABNORMAL) Sodium (04/29/2017 11:40 AM ADVANCED REGISTERED NURSE) P athologist Signature Sodium 135 (L) 136 - 145 PN SOFT mmol/L Specimen Anatomical Collection Method Collection Time Receive d Time (Source) Location / / Volume Laterality 04/29/2017 11:40 04/29/2017 2:30 AM ADVANCED REGISTERED NURSE PM ADVANCED REGISTERED NURSE Narrative PN SOFT - 04/29/2017 3:23 PM ADVANCED REGISTERED NURSE Performed at [facility], [address] [place] [address] CLIA number [id number] .Results faxed to [phone], 04/30/2017,07:05, by GIOVANY.Results faxed to ?? Dr. Vane Zarate ?? [phone], 04/29/2017,11:46, by [facility] Joey Zarate MD LAB_1 Performing Organization Address [facility] [place] Phon e Number PN SOFT [address] [place] [address] [phone] Valproic Acid (Depakene) (04/29/2017 11:40 AM ADVANCED REGISTERED NURSE) Analysis Performed At [facility] Time Signature Date Last Dose apr 29 2017 PN SOFT Valproic Acid Time Last Dose 8:0 PN SOFT Valproic Acid Valproic 51 50 - 100 PN SOFT Acid/Depakene ug/mL (Valp) Specimen Anatomical Collection Method Collection Time Receive d Time (Source) Location / / Volume Laterality 04/29/2017 11:40 04/29/2017 3:01 AM ADVANCED REGISTERED NURSE PM ADVANCED REGISTERED NURSE Narrative PN SOFT - 04/29/2017 3:24 PM ADVANCED REGISTERED NURSE Performed at [address] [address] CLIA number [id number] .Results faxed to [phone], 04/30/2017,07:05, by GIOVANY.Results faxed to ?? Dr. Vane Zarate ?? [phone], 04/29/2017,11:46, by [facility] Joey Zarate MD LAB_1 Performing Organization Address [facility] [place] Phon e Number PN SOFT [address] [place] [address] [phone] (ABNORMAL) Creatinine / GFR (04/29/2017 11:40 AM ADVANCED REGISTERED NURSE) Analysis Performed At [facility] Time Signature Creatinine 0.70 (L) 0.73 [...] Volume Laterality 04/29/2017 11:40 04/29/2017 2:30 AM ADVANCED REGISTERED NURSE PM ADVANCED REGISTERED NURSE Narrative PN SOFT - 04/29/2017 3:23 PM ADVANCED REGISTERED NURSE Performed at [facility], [address] [place] [id number] CLIA number [id number] .Results faxed to [phone], 04/30/2017,07:05, by GIOVANY.Results faxed to ?? Dr. Vane Zarate ?? [phone], 04/29/2017,11:46, by [facility] Joey Zarate MD LAB_1 Performing Organization Address [facility] Code Phon e Number PN SOFT [address] [place] [address] (ABNORMAL) Hgb A1c (04/29/2017 11:40 AM ADVANCED REGISTERED NURSE) P athologist Signature HGB A1C 9.7 (H) 4.0 - 5.6 % PN SOFT Specimen Anatomical Collection Method Collection Time Receive d Time (Source) Location / / Volume Laterality 04/29/2017 11:40 04/29/2017 3:01 AM ADVANCED REGISTERED NURSE PM ADVANCED REGISTERED NURSE Narrative PN SOFT - 04/29/2017 10:26 PM ADVANCED REGISTERED NURSE Performed at [facility], [address] [place] [address] CLIA number [id number] .Results faxed to [phone], 04/30/2017,07:05, by GIOVANY.Results faxed to ?? Dr. Vane Zarate ?? [phone], 04/29/2017,11:46, by [facility] Joey Zarate MD LAB_1 Performing Organization Address [facility] [place] Phon e Number PN SOFT [address] [place] [address] Alanine Aminotransferase - ALT (SGPT) (04/29/2017 11:40 AM ADVANCED REGISTERED NURSE) Patholo gist Method Time Signature Alanine 17 9 - 55 PN SOFT Aminotransferase U/L Specimen Anatomical Collection Method Collection Time Receive d Time (Source) Location / / Volume Laterality 04/29/2017 11:40 04/29/2017 2:30 AM ADVANCED REGISTERED NURSE PM ADVANCED REGISTERED NURSE Narrative PN SOFT - 04/29/2017 3:23 PM ADVANCED REGISTERED NURSE Performed at [facility], [address] [place] [address] CLIA number [id number] .Results faxed to [phone], 04/30/2017,07:05, by GIOVANY.Results faxed to ?? Dr. Vane Zarate ?? [phone], 04/29/2017,11:46, by [facility] Joey Zarate MD LAB_1 Performing Organization Address [facility] Code Phon e Number PN SOFT [address] [place] [address] Aspartate Aminotransferase - AST (04/29/2017 11:40 AM ADVANCED REGISTERED NURSE) Patholo gist Method Time Signature Aspartate 21 10 - 40 PN SOFT Aminotransferase U/L Specimen Anatomical Collection Method Collection Time Receive d Time (Source) Location / / Volume Laterality 04/29/2017 11:40 04/29/2017 2:30 AM ADVANCED REGISTERED NURSE PM ADVANCED REGISTERED NURSE Narrative PN SOFT - 04/29/2017 3:23 PM ADVANCED REGISTERED [place]URSE [place] [address] CLIA number [id number] .Results faxed to [phone], 04/30/2017,07:05, by GIOVANY.Results faxed to ?? Dr. Vane Zarate ?? [phone], 04/29/2017,11:46, by [facility] Joey Zarate MD LAB_1 Performing Organization Address [facility] [place] Phon e Number PN SOFT [address] [place] [address] CBC - Complete Blood Count-W/Diff (04/29/2017 11:40 AM ADVANCED REGISTERED NURSE) P athologist Signature White Blood Cell 8.8 [...] / Volume Laterality 04/29/2017 11:40 04/29/2017 AM ADVANCED REGISTERED NURSE 11:40 AM ADVANCED REGISTERED NURSE Narrative PN SOFT - 04/29/2017 11:44 AM ADVANCED REGISTERED NURSE Performed at [facility], [address] [place] [address] CLIA number [id number] .Results faxed to [phone], 04/30/2017,07:05, by GIOVANY.Results faxed to ?? Dr. Vane Zarate ?? [phone], 04/29/2017,11:46, by [facility] Joey Zarate MD LAB_1 Performing Organization Address [facility] [place] Phon e Number PN SOFT [address] [place] [address] Call List Questions (04/29/2017 11:33 AM ADVANCED REGISTERED NURSE) athologist Signature Call Back Done PN SOFT Documented Specimen (Source) Anatomical Collection Method Collection Time Re ceived Time Location / / Volume Laterality 04/29/2017 11:33 AM ADVANCED REGISTERED NURSE Narrative PN SOFT - 04/29/2017 11:33 AM ADVANCED REGISTERED NURSE Performed at [facility], [address] [place] [address] CLIA number [id number] Joey Zarate MD LAB_1 Performing Organization Address [facility] [place] Phon e Number PN SOFT [address] [place] [address] documented in this encounter Visit Diagnoses Diagnosis Need for prophylactic chemotherapy - Sandra dorsey Need for other prophylactic chemotherapy Need for prophylactic chemotherapy Need for other prophylactic chemotherapy documented in this encounter Care Teams Inspector Tester Sorter Relationship Specialty Start Date End Date Gagandeep Hinojosa MD PCP - General 05/17/[address] [place] [address] Vane Zarate Psychiatrist Psychiatry 03/22/12 documented as of this encounter
--- OUTSIDE RECORDS SUMMARY | 2022-02-14 10:43 | XMS_ITS | Encounter Summary ---
:1970 Author Organization [employer] Address [address] [place] [address] Care Team Providers Name Role Phone Gagandeep Hinojosa MD Primary Care Provider Encounter Details Date Type Department Care Team Description 08/15/2017 Lab Visit [facility] Hyperlipidemia, unspecified hyperlipidemia type; [address] Uncontrolled type 2 diabetes mellitus with diabetic polyneuropathy, with long- term current use of insulin (HRC); [place] [address] Uncontrolled type 2 diabetes mellitus without complication, without long-term current use of insulin (HRC) [phone] Social History Tobacco Use Types Packs/Day Years [...] (ABNORMAL) Microalb/Creat Ratio (08/15/2017 8:50 AM CDT) [facility] Method Time Signature Microalbumin 150.2 mg/L PN SOFT Urine U Creat Random 113 mg/dL PN SOFT Microalbumin/Crea 132.9 (H) 0.0 - PN SOFT tinine Ratio 30.0 Specimen Anatomical Collection Method Collection Time Receive d Time (Source) Location / / Volume Laterality Urine specimen 08/15/2017 8:50 AM 018 (specimen) CDT 11:33 AM CDT Narrative PN SOFT - 08/15/2017 12:05 PM CDT Performed at [facility], [address] [place] [id number] CLIA number [id number] Gagandeep Hinojosa MD LAB_1 Performing Organization Address [facility] Phon e Number PN SOFT [address] [place], [place] [address] [phone] (ABNORMAL) POCT Glycosylated Hemoglobin (HB A1C) (08/15/2017 8:43 AM CDT) [facility] Method Time Signature Glycosolated HGB 7.7 [...] - 08/15/2017 8:55 AM CDT Performed at [facility], [address] [place] [address] CLIA number [id number] Gagandeep Hinojosa MD LAB_1 Performing Organization Address [facility]/ZIP Code Phon e Number PN SOFT [address] [place] [address] (ABNORMAL) Lipid Panel and Direct LDL(If Needed) [...] - 08/15/2017 3:34 PM CDT Performed at [facility], [address] [place] [address] CLIA number [id number] Gagandeep Hinojosa MD LAB_1 Performing Organization Address [facility] Phon e Number PN SOFT [address] [place] [address] Extra Serum Separator Tube (yellow) (08/15/2017 8:35 AM CDT) athologist Signature Extra SST Top Drawn PN SOFT Drawn Specimen (Source) Anatomical Location Collection Method / Collectio n Time Received Time / Laterality Volume Narrative PN SOFT - 08/15/2017 8:35 AM CDT Performed at [facility], [address] [place] [address] CLIA number [id number] Gagandeep Hinojosa MD LAB_1 Performing Organization Address [facility] Phon e Number PN SOFT [address] [place] [address] documented in this encounter Visit Diagnoses Diagnosis Hyperlipidemia, unspecified hyperlipidem ia type (HRC) Uncontrolled type 2 diabetes mellitus wi th diabetic polyneuropathy, with long-term current use of insulin Uncontrolled type 2 diabetes mellitus wi thout complication, without long-term current use of insulin documented in this encounter Care Teams Livestock Handler Relationship Specialty Start Date End Date Gagandeep Hinojosa MD PCP - General 05/17/12 [address] [facility] [place] [address] Vane Zarate Psychiatrist Psychiatry 03/22/12 [facility] Mental [facility] Psychotherapist 08/04/17 documented as of this encounter
--- OUTSIDE RECORDS SUMMARY | 2022-02-14 10:43 | XMS_ITS | Encounter Summary ---
:1970 Author Organization [facility] Address [address] [address] Care Team Providers Name Role Phone Gagandeep Hinojosa MD Primary Care Provider Reason for Visit Reason Comments [facility] Phone Visit HRR Encounter Details Date Type Department Care Team Description 05/10/2017 Care Coord Phone [facility] Phone Visit (HRR) Medicine Franck RN [address] [place] [address] [place], [place] [phone] [address] Social History Tobacco Use Types Packs/Day Years [...] need for renewed [facility] involvement. Thank you. ING ASSISTANT documented in this encounter Plan of Treatment Not on filedocumented as of this encounter Visit Diagnoses Not on filedocumented in this encounter Care Teams Sample Maker Hand Relationship Specialty Start Date End Date Gagandeep Hinojosa MD PCP - General 05/17/12 [address] [facility] [place] [address] Vane Zarate Psychiatrist Psychiatry 03/22/12 documented as of this encounter
--- OUTSIDE RECORDS SUMMARY | 2022-02-14 10:43 | XMS_ITS | Encounter Summary ---
:1970 Author Organization [facility] Address [address] [place] [address] Care Team Providers Name Role Phone Gagandeep Michaud MD Primary Care Provider Reason for Visit Reason Onset Date Comments Refill 04/13/2017 insulin regular (NOV VONDA R) 100 UNIT/ML injection Encounter Details Date Type Department Care Team Description 04/13/2017 Refill [place] [facility] Gagandeep Michaud, Refrose mary l (insulin regular Medicine MD (NOVOLIN R) 100 UNIT/ML [address] injection) [place] [address] [place] [address] (Wo rk) Social History Tobacco Use Types [...] Provider: GAGANDEEP MICHAUD Ordering User: ABBIE MITCHELL BRUSH MAKER Interface, Out Mofang Query - 04/13/2017 1:09 PM CST insulin [...] : 11.8 % on 02/16/2017 Powered by Linux Voice, Reference: [id number], 04/13/2017 1:09:42 PM WIRE BRUSH MAKER, Pool: MANUEL REFILL ([id number]) BRUSH MAKER documented in this encounter Plan of Treatment Not on filedocumented as of this encounter Visit Diagnoses Diagnosis Uncontrolled type 2 diabetes mellitus wi thout complication, with long-term current use of insulin documented in this encounter Care Teams Attacher Relationship Specialty Start Date End Date Gagandeep Michaud MD PCP - General 05/17/12 14[address] [facility] [place] [address] Vane Zarate Psychiatrist Psychiatry 03/22/12 documented as of this encounter
--- OUTSIDE RECORDS SUMMARY | 2022-02-14 10:43 | XMS_ITS | Encounter Summary ---
:1970 Author Organization [employer] Address [address] [place] [address] Care Team Providers Name Role Phone Gagandeep Micahud MD Primary Care Provider Reason for Visit Reason Comments Refill atorvastatin (LIPITOR) 80 MG tablet [Pharmacy Med Name: ATORVASTATIN 80 MG TABLET] Encounter Details Date Type Department Care Team Description 07/28/2017 Refill Gagandeep Storm, Refil l (atorvastatin Medicine MD (LIPITOR) 80 MG tablet [address] 1415 [facility] [Pharmacy Med Name: [facility] [place] [address] [place] [address] ATORVASTATIN 80 MG [phone] (Wo rk) TABLET]) Social History Tobacco Use [...] TABLET BY MOUTH EVERY DAY Interface, Out Ambient [employer] Prov Query - 07/28/2017 9:39 AM CDT [...] visit: 08/15/2017 (in Family Practice) Powered by [employer], Reference: [id number], 07/28/2017 9:39:43 AM CDT, Pool: MANUELNoni LAN[place] ([id number]) documented in this encounter Plan of Treatment Not on filedocumented as of this encounter Visit Diagnoses Diagnosis ASHD (arteriosclerotic heart disease) (H RC) Coronary atherosclerosis of unspecified type of vessel, unalakleet or graft Hyperlipidemia LDL goal < 70 Other and unspecified hyperlipidemia documented in this encounter Care Teams Vp Communications Relationship Specialty Start Date End Date Gagandeep Michaud MD PCP - General 05/17/[address] [place] [address] [place] [address] Vane Zarate Psychiatrist Psychiatry 03/22/12 documented as of this encounter
--- OUTSIDE RECORDS SUMMARY | 2022-02-14 10:43 | XMS_ITS | Encounter Summary ---
:1970 Author Organization [employer] Address [address], [place] [address] Care Team Providers Name Role Phone Gagandeep Hinojosa MD Primary Care Provider Reason for Visit Reason Comments [facility] Phone Visit Encounter Details Date Type Department Care Team Description 09/05/2017 Care Coord Phone [facility] Deborah Rodrigues, [facility] Phone Visit Medicine [facility] [address] [facility] . [address] [place] [address] [place] [address] [phone] Social History Tobacco Use Types Packs/Day Years Used Date Smoking Tobacco: Every Day Cigarettes 1 25 Smokeless Tobacco: Former Qu it: 10/25/2012 Comments: Smoking History Packs/day: Alcohol Use Standard Drinks/Week Comments No 0 (1 standard drink = 0.6 oz pure Alcoho lic Drinks/day: Amount:0; alcohol) Freq:Never; Sex Assigned at Date Recorded Not on file documented as of this encounter Progress Notes Deborah Rodrigues, [facility] - 09/05/2017 10:[address] - Phone Call Contact with: Rustam Reason for call: Care Coordination Discussion/actions: Received a phone message from Rustam, that was forwarded from RN summer child caregiver, Judy Pittman. I called Rustam back, as we had previously discussed I would be his point of contact for anything other than his physical health. Rustam stated that he was at the [employer], so he could not talk long. Rustam was a little difficult to follow, but stated that things have been going finefor him, and he had a good weekend. He stated he wanted to follow-up further during his scheduled [facility] appointment on Tuesday this week. I encouraged him to call back if he needed anything prior to his next appointment. This note was produced using voice recognition software and may contain typographic or phonetic errors. Shared plan: -[facility] appointment 09/09 at 11:00. Pt verbalized understanding and agreed with plan of care and follow up. documented in this encounter Plan of Treatment Not on filedocumented as of this encounter Visit Diagnoses Diagnosis Health retirement, active care coordinati on - Primary documented in this encounter Care Teams Registration Representative Relationship Specialty Start Date End Date Gagandeep Hinojosa MD PCP - General 05/17/[address] [place] [address] [place] [address] Vane Zarate Psychiatrist Psychiatry 03/22/12 [facility] Mental [facility] Psychotherapist 08/04/17 documented as of this encounter
--- OUTSIDE RECORDS SUMMARY | 2022-02-14 10:43 | XMS_ITS | Encounter Summary ---
:1970 Author Organization [facility] Address [address] [place] [address] Care Team Providers Name Role Phone Gagandeep Hinojosa MD Primary Care Provider Reason for Visit Reason Comments [facility] Face To Face Visit Encounter Details Date Type Department Care Team Description 09/01/2017 Care Coord [facility] Deborah Rodrigues, [facility] Fa ce To Face Office Visit Medicine [facility] Visit [address] [facility] [place] [address] [place] [address] [phone] Social History Tobacco Use Types Packs/Day Years [...] Notes Deborah Rodrigues, [facility] - 09/01/2017 11:00 AM CDT Care Coordination Visit Pt: Timur Krishnamurthy Referred by: Gagandeep Hinojosa MD Reason for visit: Care Coordination Timur was seen alone. Discussion/actions: Met with Rustam for joint appointment with RN Rougher Helper, Judy Pittman. She address his physicalhealth concerns [...] state again, and wants to work at [employer]. He has a follow-up psychiatric appointment in [...] thoughts of suicide. He is working at [employer], and is trying to make sure he maintains a good balance between work and home. Rustam has also been reducing his smoking, and has a quit date of 01/21, which she is really hoping to obtain. Rustam denied any other concerns at this time and schedule a follow-up [facility] appointment for next week. We willdiscuss how [...] PLAN: -MH CM appointment 09/06 at 10:30. -[facility] appointment 09/09 at 11:00. Pt verbalized understanding and agreed with plan of care and follow up. documented in this encounter Miscellaneous Notes Assessment & Plan Note - Deborah Rodrigues LICSW - 09/01/2017 11:38 AM CDT Associated Problem(s): Health shelter, active care coordination (Resolved 07/27/2018) Rougher Helper: ERLIN Salas [phone] Care coordination focus: mental health Living situation: Lives with Important notes: mh case management starting documented in this encounter Plan of Treatment Not on filedocumented as of this encounter Visit Diagnoses Diagnosis Health shelter, active care coordinati on - Primary documented in this encounter Care Teams Manager Beverage Relationship Specialty Start Date End Date Gagandeep Hinojosa MD PCP - General 05/17/12 [address] [facility] [place] [address] Vane Zarate Psychiatrist Psychiatry 03/22/12 [facility] Mental Health Psychotherapist 08/04/17 documented as of this encounter
--- OUTSIDE RECORDS SUMMARY | 2022-02-14 10:43 | XMS_ITS | Encounter Summary ---
:1970 Author Organization [employer] Address [address] [place] [address] Care Team Providers Name Role Phone Gagandeep Hinojosa MD Primary Care Provider Reason for Visit Reason Comments SLEEP PROBLEM--ED Medication Problems Encounter Details Date Type Department Care Team Description 04/28/2017 Nurse Triage Gagandeep Storm SLEEP AZ OBLEM--ED; Romario Rubio MD Medication Problems [address] [place] [address] Ave [phone] [place] [address] Social History Tobacco Use Types [...] daily living) Protocols used: ANXIETY AND PANIC [id number], BIPOLAR DISORDER (MANIC DEPRESSION)-ADULT-AH Spoke to patient. [...] 04/29/2017 10:30 AM Gagandeep Hinojosa MD [facility] MANUEL GER TRADING Vivienne Gifford - 04/28/2017 10:55 AM CST Pt calling to speak to a nurse about concerns with sleeping problems, pt States recently started [employer] And could be contributing to concerns., please assist. GER TRADING documented in this encounter Plan of Treatment Not on filedocumented as of this encounter Visit Diagnoses Not on filedocumented in this encounter Care Teams Crib Tender Relationship Specialty Start Date End Date Gagandeep Hinojosa MD PCP - General 05/17/12 14[address] [facility] [place] [address] Vane Zarate Psychiatrsamantha Psychiatry 03/22/12 documented as of this encounter
--- OUTSIDE RECORDS SUMMARY | 2022-02-14 10:43 | XMS_ITS | Encounter Summary ---
:1970 Author Organization [employer] Address [address] [place] [address] Care Team Providers Name Role Phone Gagandeep Hinojosa MD Primary Care Provider Encounter Details Date Type Department Care Team Description 02/16/2017 Lab Visit [facility] Uncontrolled type 2 diabetes mellitus without complication, with long-term current use of insulin (HRC) [E11.65,Z79.4]; [address] [facility] . Hyperlipidemia, unspecified hyperlipidemia type (HRC) [E78.5] [place] [address] Social History Tobacco Use Types Packs/Day Years [...] in NEEDED) hyperlipidemia type the resu lts ([facility]) [E78.5] section. EXTRA SERUM STAT 02/16/2017 10:51 Results for this SEPARATOR TUBE AM CDT procedure are in (YELLOW) the results section. documented in this encounter Results (ABNORMAL) Microalb/Creat Ratio (02/16/2017 11:01 AM CDT) [facility] VisiQuate Method Time Signature Microalbumin 124.6 mg/L PN SOFT Urine U Creat Random 78 mg/dL PN SOFT Microalbumin/Crea 159.7 (H) 0.0 - PN SOFT tinine Ratio 30.0 Specimen Anatomical Collection Method Collection Time Receive d Time (Source) Location / / Volume Laterality Urine specimen 02/16/2017 11:01 7 2:41 (specimen) AM CDT PM CDT Narrative PN SOFT - 02/16/2017 3:37 PM CDT Performed at [facility], [facility] [address] [place] [address] CLIA number [id number] Gagandeep Hinojosa MD LAB_1 Performing Organization Address City/State/ZIP Code Phon e Number PN SOFT [address] [place] [address] [phone] (ABNORMAL) Lipid Panel and Direct LDL(If Needed) (02/16/2017 10:54 AM CDT) [facility] VisiQuate Method Time Signature Cholesterol 179 0 - [...] - 02/16/2017 3:18 PM CDT Performed at [facility], [address] [place] [address] CLIA number [id number] Gagandeep Hinojosa MD LAB_1 Performing Organization Address [facility] Phon e Number PN SOFT [address] [place] [address] (ABNORMAL) POCT Glycosylated Hemoglobin (HB A1C) (02/16/2017 [...] - 02/16/2017 11:05 AM CDT Performed at [facility], [address] [place] [address] CLIA number [id number] Gagandeep Hinojosa MD LAB_1 Performing Organization Address [facility] Phon e Number PN SOFT [address] [place] [address] Extra Serum Separator Tube (yellow) (02/16/2017 10:51 AM CDT) athologist Signature Extra SST Top Drawn PN SOFT Drawn Specimen (Source) Anatomical Location Collection Method / Collectio n Time Received Time / Laterality Volume Narrative PN SOFT - 02/16/2017 10:51 AM CDT Performed at [facility], [address] [place] [address] CLIA number [id number] Gagandeep Hinojosa MD LAB_1 Performing Organization Address [facility] Phon e Number PN SOFT [address] [place] [address] documented in this encounter Visit Diagnoses Diagnosis Uncontrolled type 2 diabetes mellitus wi thout complication, with long-term current use of insulin (HRC) [E11.65,Z79.4] Hyperlipidemia, unspecified hyperlipidem ia type (HRC) [E78.5] documented in this encounter Care Teams Agricultural Commodities Grader Relationship Specialty Start Date End Date Gagandeep Hinojosa MD PCP - General 05/17/12 [facility] [place] [id number] Vane Zarate Psychiatrsamantha Psychiatry 03/22/12 documented as of this encounter
--- OUTSIDE RECORDS SUMMARY | 2022-02-14 10:43 | XMS_ITS | Encounter Summary ---
:1970 Author Organization [employer] Address [address] [place] [address] Care Team Providers Name Role Phone Gagandeep Hinojosa MD Primary Care Provider Encounter Details Date Type Department Care Team Description 05/17/2017 Lab Visit [facility] Uncontrolled type [address] mellitus with diabetic [place] [address] polyneuropathy, with [phone] long-term curre nt use of insulin (HRC) [...] 2 Results for this HEMOGLOBIN (HB A1C) ASPHALT SPREADER OPERATOR diabetes mellitus pro cedure are in with diabetic the results polyneuropathy, with section . long-term current use of insulin (HRC) EXTRA SERUM SEPARATOR STAT 05/17/2017 1:49 PM Results for this TUBE (YELLOW) ASPHALT SPREADER OPERATOR procedure are in the results section. documented in this encounter Results (ABNORMAL) POCT Glycosylated Hemoglobin (HB A1C) (05/17/2017 1:59 PM ASPHALT SPREADER OPERATOR) [facility] gist Method Time Signature Glycosolated HGB [...] Volume Laterality 05/17/2017 1:59 PM 8 1:58 ASPHALT SPREADER OPERATOR PM ASPHALT SPREADER OPERATOR Narrative PN SOFT - 05/17/2017 2:15 PM ASPHALT SPREADER OPERATOR Performed at [facility], [address] [place] [address] CLIA number [id number] Gagandeep Hinojosa MD LAB_1 Performing Organization Address [facility] Phon e Number PN SOFT [address] [place] [address] [phone] Extra Serum Separator Tube (yellow) (05/17/2017 1:49 PM ASPHALT SPREADER OPERATOR) athologist Signature Extra SST Top Drawn PN SOFT Drawn Specimen (Source) Anatomical Location Collection Method / Collectio n Time Received Time / Laterality Volume Narrative PN SOFT - 05/17/2017 1:49 PM ASPHALT SPREADER OPERATOR Performed at [facility], [address] [place] [address] CLIA number [id number] Gagandeep Hinojosa MD LAB_1 Performing Organization Address City/[facility] Phon e Number PN SOFT [address] [place] [address] [phone] documented in this encounter Visit Diagnoses Diagnosis Uncontrolled type 2 diabetes mellitus wi th diabetic polyneuropathy, with long-term current use of insulin documented in this encounter Care Teams Systems Support Engineer Relationship Specialty Start Date End Date Gagandeep Hinojosa MD PCP - General 05/17/[address] [place] [address] Vane Zarate Psychiatrist Psychiatry 03/22/12 documented as of this encounter
--- OUTSIDE RECORDS SUMMARY | 2022-02-14 10:43 | XMS_ITS | Encounter Summary ---
:1970 Author Organization [employer] Address [address] [place] [address] Care Team Providers Name Role Phone Gagandeep Hinojosa MD Primary Care Provider Reason for Visit Reason Comments Disease Registry Encounter Details Date Type Department Care Team Description 05/19/2017 Notes/Orders [facility] Gagandeep Hinojosa MD [facility] [facility] . [facility] [facility] [place] [address] [place] [address] [phone] (Wo rk) Social History Tobacco Use Types [...] filedocumented in this encounter Care Teams Auto Accessories Installer Relationship Specialty Start Date End Date Gagandeep Hinojosa MD PCP - General 05/17/12 [address] [facility] [place] [address] Vane Zarate Psychiatrist Psychiatry 03/22/12 documented as of this encounter
--- OUTSIDE RECORDS SUMMARY | 2022-02-14 10:43 | XMS_ITS | Encounter Summary ---
:1970 Author Organization [employer] Address [address] [place] [address] Care Team Providers Name Role Phone Gagandeep Hinojosa MD Primary Care Provider Reason for Visit Reason Comments HC Face To Face Visit Encounter Details Date Type Department Care Team Description 08/04/2017 Care Coord Judy Luke RN [facility] Face To Face Office Visit Medicine [address] [facility] Visit [address] [place] [address] Social History Tobacco Use Types Packs/Day Years [...] encounter Progress Notes Judy Pittman RN - 08/04/2017 9:00 AM CDT RN Motor Bike Mechanic Visit Pt: Timur Krishnamurthy Referred by: [...] Touch Ultra 2 CURRENT GLUCOSE PATTERNS: since 07/20/17 Fastin - 197, 228, 240, 357 2 hours after largest meal: 133, 135 - 182, 237, 225, 258, 306 Hypoglycemia (previous two weeks): none reported ASSESSMENT: Rustam was referred for care coordination services to assist with DM management and medication titration by Dr Hinojosa. Mental Health Upon first talking to Rustam, it is clear that his mental health remains a barrier to improving his health. He admits he is struggling, but assures me he is not a danger to himself or others. Rustam continues to see his [facility] therapist every Tuesday and notes he is making sure to get a consistent 6-8 hours of sleep every night with the use of Seroquel. His psychiatrist, Dr Vane Huff, startedhim on a new medication called Vraylar, about 6 weeks ago. Rustam plans to call Dr Huff later todayto give her an update and see if he dose needs to be adjusted again. His next follow up appt is in early August. Rustam reports problems at work, stating he has received 2 verbal warnings from his managers about being too intrusive and chatty with customers. Work is very important to Rustam, both for a sense of purpose and to afford his car, so the reprimands have him worried. Currently, he is working 3 days in a row with 4 days off, for a total of 24 hours per week. Rustam describes his feelings as running around like a lost puppy and being afraid of swinging back into depression. We reviewed the multiple support systems Rustam currently has in place including monthly psychiatry, weekly therapy, weekly [facility], and [facility] walk-in every Tuesday. Rustam has previously worked with MH Case Management through [facility] and thinks this would be helpful again. So, we called [facility] together and requested Han Arshad, the therapist he has worked with in the past. Rustam understands that his mental health is his top priority at this time, noting we won't be making any significant changes to his treatment plan until he is feeling more stable. Insurance Rustam receives SSDI for his dx Bipolar Disorder. He applied for MA-EPD and at our last visit stated his application was approved, but was waiting to find out the monthly premium costs. Today, Rustam reports his application was actually denied because he and his are over-income. I reminded Rustam that Jimena French has a Financial Assistance program to help cover clinic costs, if that is a concern in the future. In the meantime, Rustam will need to look into other assistance programs to cover the cost of his recent hospitalization in April. Medication Rustam is supposed to be using [...] organized. He notes he never misses metformin. Blood Glucose Rustam admits he continues to work on SMBG. He understands the importance of checking his BG while taking insulin, for safety, but has a hard time following through. Rustam is bringing his glucometer andinsulin to work. I noted he has been doing a lot better with checking his BG, I thanked him for writing down his readings. Rustam reports he has lofty goals, including checking his BG and taking his insulin, that he struggles with on a daily basis. Rustam's goal is to reduce his A1c, therefore I stressed the importance of taking all his insulin and medication as prescribed and checking his BG. Diet Rustam is fixated on losing weight, wanting to lose 50 lbs over the the next year because it will be better for his health. He knows he needs to work on his diet, especially his CHO intake. Rustam statestheresa isn't eating out as often and is trying to make more meals at home. He has Eating for Better Health and My Food Plan at home for reference, but Rustam states he didn't realize that juice was so high in CHO. For now, I stressed the importance of keeping his instruction simple, including taking his insulin regularly, discontinuing juice, and watching his portions of high CHO foods such as pasta, rice, and spaetzle. He agreed. Exercise Rustam reports he is doing a lot walking at work, but not walking at the [employer] anymore. Heis interested in trying basketball. Rustam states he isn't really exercising at this time, rather he is periodically walking at the [employer], only about 2 times a week. [...] cutting back 1 cigarette every 7-10 days. Swelling Rustam reports increased swelling in his lower extremities that started back in April. The swellingis worse when he is standing all day at work, pacing. Rustam does note the swelling improves wheneverhe puts his feet up. I can see +2-3 pitting edema, so I scheduled an appt with Dr Hinojosa tomorrow. Follow-up Rustam reports he does best when he is held accountable and has close follow-up. Therefore, he would like to meet with me regularly, every 2-3 weeks, until his A1c is at goal. I agreed. Family/social support: Patient attended today's visit alone. [...] back, used to verify understanding. SHARED PLAN: Left message for [facility] requesting a Supervisor Pile Driving. Continue regular mental health follow up appts and support groups. Continue current insulin and medication regimen, as prescribed. SMBG qid as directed, record readings. Work toward decreasing 1 cigarette every 7-10 days. Re-enroll in Quit Plan for telephonic coaching. Follow up scheduled on 08/18/17, bring readings. Rustam to call if symptoms of hypoglycemia or readings < 70 mg/dL. Rustam verbalized understanding and agreed with plan of care and follow up. documented in this encounter Plan of Treatment Not on filedocumented as of this encounter Visit Diagnoses Diagnosis Bipolar I disorder (HRC) - Primary Bipolar I disorder, most recent episode (or current) unspecified Health senior care, active care coordinati on Uncontrolled type 2 diabetes mellitus wi th microalbuminuria, with long-term current use of insulin documented in this encounter Care Teams Clipper Machine Relationship Specialty Start Date End Date Gagandeep Hinojosa MD PCP - General 05/17/[address] [place] [address] [place] [address] Vane Zarate Psychiatrist Psychiatry 03/22/12 [facility] Mental [facility] Psychotherapist 08/04/17 documented as of this encounter
--- OUTSIDE RECORDS SUMMARY | 2022-02-14 10:43 | XMS_ITS | Encounter Summary ---
:1970 Author Organization [employer] Address [address] [place] [address] Care Team Providers Name Role Phone Gagandeep Hinojosa MD Primary Care Provider Reason for Referral Consult/Transfer Care (Routine) - Closed Specialty Diagnoses / Procedures Referred By Contact Refer red To Contact Diagnoses Uncontrolled type 2 diabetes mellitus with complication, with long-term current use of insulin Joce Foster MD [address] [facility] [place] [address] Referral ID Status Reason Start Date Expiration Date Visits Requ ested Visits Authorized [id number] Closed 05/17/2017 08/16/2018 1 1 Scheduling Instructions If scheduling assistance is needed, namrata dorman inquire with the medical office staff upon exiting your appointment or contact the ordering clinic for recommended locations. This recommended service/s may not be co tri by your insurance coverage. To find out your specific benefit coverage, please c all the number on your insurance card. TRONIC PUBLISHER Reason for Visit Reason Comments Diabetes Encounter Details Date Type Department Care Team Description 05/17/2017 Office Visit Joce Daniels lled type 2 diabetes mellitus with complication, with long-term current use of insulin (HRC) (Primary Dx); Romario Juárez MD Essential hypertension; [address] [place] [address] [facility] Hyperlip idemia LDL goal < 70; [address] ASHD (arteriosclerotic heart disease); [place] [address] [place] Bipolar I disorder (HRC); [phone] [address] Tobacco use disorder Social History Tobacco Use [...] Comments Blood Pressure 140/86 05/17/2017 2:29 PM ELECTRONIC PUBLISHER Pulse 106 05/17/2017 2:29 PM ELECTRONIC PUBLISHER Temperature - - Respiratory Rate - - Oxygen Saturation - - Inhaled Oxygen Concentration - - Weight 105.2 kg (232 lb) 05/17/2017 2:28 PM ELECTRONIC PUBLISHER Height - - Body Mass Index 33.29 04/05/2017 3:18 PM ELECTRONIC PUBLISHER documented in this encounter Progress Notes Joce Foster MD - 05/17/2017 12:00 PM CST NAME: SHARLENE VARNER MR#: [id number] CSN: [id number] AUTHENTICATING CLINICIAN: Joce Foster MD CONFIRM #: [id number] LOC: 1202 CLINIC PROGRESS NOTE DATE OF [...] 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 MEDS: Reviewed and updated in [...] future if interested. MJW:MEDWendy C: CONFIRM #: [id number] TRONIC PUBLISHER documented in this encounter Plan of Treatment Not on filedocumented as of this encounter Visit Diagnoses Diagnosis Uncontrolled type 2 diabetes mellitus wi th complication, with long-term current use of insulin - Primary Essential hypertension (HRC) Unspecified essential hypertension Hyperlipidemia LDL goal < 70 Other and unspecified hyperlipidemia ASHD (arteriosclerotic heart disease) (H RC) Coronary atherosclerosis of unspecified type of vessel, [place] or graft Bipolar I disorder (HRC) Bipolar I disorder, most recent episode (or current) unspecified Tobacco use disorder (HRC) Tobacco use disorder documented in this encounter Care Teams Customer Relations Assistant Relationship Specialty Start Date End Date Gagandeep Hinojosa MD PCP - General 05/17/12 [facility] [place] [address] Vane Zarate Psychiatrist Psychiatry 03/22/12 documented as of this encounter
--- OUTSIDE RECORDS SUMMARY | 2022-02-14 10:43 | XMS_ITS | Encounter Summary ---
:1970 Author Organization [employer] Address [address] [place] [address] Care Team Providers Name Role Phone Gagandeep Hinojosa MD Primary Care Provider Encounter Details Date Type Department Care Team Description 04/29/2017 Lab Visit [facility] Need for prophylactic [address] [place] [address] Social History Tobacco Use Types Packs/Day Years [...] 11:40 Need for Results for this AM WATER TAXI OPERATOR prophylactic procedure are i n chemotherapy the results section. COMPLETE BLOOD Routine 04/29/2017 11:40 Need for Results f or this COUNT-W/DIFF AM WATER TAXI OPERATOR prophylactic procedure are i n chemotherapy the results section. DIFFERENTIAL Routine 04/29/2017 11:40 Results for this AM WATER TAXI OPERATOR procedure are i n the results section. VALPROIC ACID Routine 04/29/2017 11:40 Need for Results fo r this (DEPAKENE) AM WATER TAXI OPERATOR prophylactic procedure are i n chemotherapy the results section. AMMONIA Routine 04/29/2017 11:40 Need for Results for this AM WATER TAXI OPERATOR prophylactic procedure are i n chemotherapy the results section. HGB A1C Routine 04/29/2017 11:40 Need for Results for this AM WATER TAXI OPERATOR prophylactic procedure are i n chemotherapy the results section. ALT (SGPT) Routine 04/29/2017 11:40 Need for Results for this AM WATER TAXI OPERATOR prophylactic procedure are i n chemotherapy the results section. AST Routine 04/29/2017 11:40 Need for Results for this AM WATER TAXI OPERATOR prophylactic procedure are i n chemotherapy the results section. SODIUM Routine 04/29/2017 11:40 Need for Results for this AM WATER TAXI OPERATOR prophylactic procedure are i n chemotherapy the results section. POTASSIUM Routine 04/29/2017 11:40 Need for Results for this AM WATER TAXI OPERATOR prophylactic procedure are i n chemotherapy the results section. CALL LIST QUESTIONS Routine 04/29/2017 11:33 Need for Resu lts for this AM WATER TAXI OPERATOR prophylactic procedure are i n chemotherapy the results section. documented in this encounter Results (ABNORMAL) Differential (04/29/2017 11:40 AM WATER TAXI OPERATOR) Analysis Performed At Patho logist Time [...] / Volume Laterality 04/29/2017 11:40 04/29/2017 AM WATER TAXI OPERATOR 11:40 AM WATER TAXI OPERATOR Narrative PN SOFT - 04/29/2017 11:44 AM WATER TAXI OPERATOR Performed at [facility] ([facility] [address] [place], [place] [id number] CLIA number [id number] .Results faxed to [phone], 04/30/2017,07:05, by [facility].Results faxed to ?? Dr. Vane Zarate ?? [phone], 04/29/2017,11:46, by [facility] Vane Zarate MD LAB_1 Performing Organization Address City/State/ZIP Code Phon e Number PN SOFT [address] [place] [address] [phone] Ammonia (04/29/2017 11:40 AM WATER TAXI OPERATOR) athologist Signature Ammonia, Blood 30 0 - 44 PN SOFT umol/L Specimen Anatomical Collection Method Collection Time Receive d Time (Source) Location / / Volume Laterality 04/29/2017 11:40 04/29/2017 2:56 AM WATER TAXI OPERATOR PM WATER TAXI OPERATOR Narrative PN SOFT - 04/29/2017 4:09 PM WATER TAXI OPERATOR Performed at [facility], [address] [id number] CLIA number [id number] .Results faxed to [phone], 04/30/2017,07:05, by GIOVANY.Results faxed to ?? Dr. Vane Zarate ?? [phone], 04/29/2017,11:46, by [facility] Joey Zarate MD LAB_1 Performing Organization Address [facility] Phon e Number PN SOFT [address] [place] [address] Potassium (04/29/2017 11:40 AM WATER TAXI OPERATOR) athologist Signature Potassium 5.0 3.5 - 5.2 PN SOFT mmol/L Specimen Anatomical Collection Method Collection Time Receive d Time (Source) Location / / Volume Laterality 04/29/2017 11:40 04/29/2017 2:30 AM WATER TAXI OPERATOR PM WATER TAXI OPERATOR Narrative PN SOFT - 04/29/2017 3:23 PM WATER TAXI OPERATOR Performed at [facility] ([facility] [address] [place] [address] CLIA number [id number] .Results faxed to [phone], 04/30/2017,07:05, by GIOVANY.Results faxed to ?? Dr. Vane Zarate ?? [phone], 04/29/2017,11:46, by [facility] Joey Zarate MD LAB_1 Performing Organization Address [facility] Phon e Number PN SOFT [address] [place] [address] (ABNORMAL) Sodium (04/29/2017 11:40 AM WATER TAXI OPERATOR) athologist Signature Sodium 135 (L) 136 - 145 PN SOFT mmol/L Specimen Anatomical Collection Method Collection Time Receive d Time (Source) Location / / Volume Laterality 04/29/2017 11:40 04/29/2017 2:30 AM WATER TAXI OPERATOR PM WATER TAXI OPERATOR Narrative PN SOFT - 04/29/2017 3:23 PM WATER TAXI OPERATOR Performed at [facility] ([facility] [address] [place] [address] CLIA number [id number] .Results faxed to [phone], 04/30/2017,07:05, by [facility].Results faxed to ?? Dr. Vane Zarate ?? [phone], 04/29/2017,11:46, by [facility] Joey Zarate MD LAB_1 Performing Organization Address [facility] Phon e Number PN SOFT [address] [place] [address] Valproic Acid (Depakene) (04/29/2017 11:40 AM WATER TAXI OPERATOR) Analysis Performed At [facility] Time Signature Date Last Dose apr 29 2017 PN SOFT Valproic Acid Time Last Dose 8:0 PN SOFT Valproic Acid Valproic 51 50 - 100 PN SOFT Acid/Depakene ug/mL (Valp) Specimen Anatomical Collection Method Collection Time Receive d Time (Source) Location / / Volume Laterality 04/29/2017 11:40 04/29/2017 3:01 AM WATER TAXI OPERATOR PM WATER TAXI OPERATOR Narrative PN SOFT - 04/29/2017 3:24 PM WATER TAXI OPERATOR Performed at [facility], [address] [place] [address] CLIA number [id number] .Results faxed to [phone], 04/30/2017,07:05, by GIOVANY.Results faxed to ?? Dr. Vane Zarate ?? [phone], 04/29/2017,11:46, by [facility] Joey Zarate MD LAB_1 Performing Organization Address [facility] Phon e Number PN SOFT [address] [place] [address] (ABNORMAL) Creatinine / GFR (04/29/2017 11:40 AM WATER TAXI OPERATOR) Analysis Performed At Patho logist Time [...] Volume Laterality 04/29/2017 11:40 04/29/2017 2:30 AM WATER TAXI OPERATOR PM WATER TAXI OPERATOR Narrative PN SOFT - 04/29/2017 3:23 PM WATER TAXI OPERATOR Performed at [facility] ([facility] [address] [place], [place] [address] CLIA number [id number] .Results faxed to [phone], 04/30/2017,07:05, by GIOVANY.Results faxed to ?? Dr. Vane Zarate ?? [phone], 04/29/2017,11:46, by [facility] Joey Zarate MD LAB_1 Performing Organization Address City/State/ZIP Code Phon e Number PN SOFT [address] [place] [address] (ABNORMAL) Hgb A1c (04/29/2017 11:40 AM WATER TAXI OPERATOR) athologist Signature HGB A1C 9.7 (H) 4.0 - 5.6 % PN SOFT Specimen Anatomical Collection Method Collection Time Receive d Time (Source) Location / / Volume Laterality 04/29/2017 11:40 04/29/2017 3:01 AM WATER TAXI OPERATOR PM WATER TAXI OPERATOR Narrative PN SOFT - 04/29/2017 10:26 PM WATER TAXI OPERATOR Performed at [facility], [facility] [place] [address] CLIA number [id number] .Results faxed to [phone], 04/30/2017,07:05, by [facility].Results faxed to ?? Dr. Vane Zarate ?? [phone], 04/29/2017,11:46, by [facility] Joey Zarate MD LAB_1 Performing Organization Address [facility] Phon e Number PN SOFT [address] [place] [address] [phone] Alanine Aminotransferase - ALT (SGPT) (04/29/2017 11:40 AM WATER TAXI OPERATOR) [facility] gist Method Time Signature Alanine 17 9 - 55 PN SOFT Aminotransferase U/L Specimen Anatomical Collection Method Collection Time Receive d Time (Source) Location / / Volume Laterality 04/29/2017 11:40 04/29/2017 2:30 AM WATER TAXI OPERATOR PM WATER TAXI OPERATOR Narrative PN SOFT - 04/29/2017 3:23 PM WATER TAXI OPERATOR Performed at [facility] ([facility] [address] [place] [address] CLIA number [id number] .Results faxed to [phone], 04/30/2017,07:05, by [facility].Results faxed to ?? Dr. Vane Zarate ?? [phone], 04/29/2017,11:46, by [facility] Joey Zarate MD LAB_1 Performing Organization Address [facility] Phon e Number PN SOFT [address] [place] [address] Aspartate Aminotransferase - AST (04/29/2017 11:40 AM WATER TAXI OPERATOR) [facility] Method Time Signature Aspartate 21 10 - 40 PN SOFT Aminotransferase U/L Specimen Anatomical Collection Method Collection Time Receive d Time (Source) Location / / Volume Laterality 04/29/2017 11:40 04/29/2017 2:30 AM WATER TAXI OPERATOR PM WATER TAXI OPERATOR Narrative PN SOFT - 04/29/2017 3:23 PM WATER TAXI OPERATOR Performed at [facility]), [facility] [address] [place] [address] CLIA number [id number] .Results faxed to [phone], 04/30/2017,07:05, by [facility].Results faxed to ?? Dr. Vane Zarate ?? [phone], 04/29/2017,11:46, by [facility] Joey Zarate MD LAB_1 Performing Organization Address City/[facility] Code Phon e Number PN SOFT [address] [place] [address] CBC - Complete Blood Count-W/Diff (04/29/2017 11:40 AM WATER TAXI OPERATOR) athologist Signature White Blood Cell 8.8 [...] / Volume Laterality 04/29/2017 11:40 04/29/2017 AM WATER TAXI OPERATOR 11:40 AM WATER TAXI OPERATOR Narrative PN SOFT - 04/29/2017 11:44 AM WATER TAXI OPERATOR Performed at [facility] [address] [place] [address] CLIA number [id number] .Results faxed to [phone], 04/30/2017,07:05, by [facility]OVANY.Results faxed to ?? Dr. Vane Zarate ?? [phone], 04/29/2017,11:46, by [facility] Joey Zarate MD LAB_1 Performing Organization Address City/[facility] Phon e Number PN SOFT [address] [place] [address] Call List Questions (04/29/2017 11:33 AM WATER TAXI OPERATOR) athologist Signature Call Back Done PN SOFT Documented Specimen (Source) Anatomical Collection Method Collection Time Re ceived Time Location / / Volume Laterality 04/29/2017 11:33 AM WATER TAXI OPERATOR Narrative PN SOFT - 04/29/2017 11:33 AM WATER TAXI OPERATOR [place] [address] CLIA number [id number] Joey Zarate MD LAB_1 Performing Organization Address City/State/ZIP Code Phon e Number PN SOFT [address] [place] [address] [phone] documented in this encounter Visit Diagnoses Diagnosis Need for prophylactic chemotherapy Need for other prophylactic chemotherapy documented in this encounter Care Teams Network Solutions Architect Relationship Specialty Start Date End Date Gagandeep Hinojosa MD PCP - General 05/17/12 [address] [place] [address] Vane Zarate Psychiatrsamantha Psychiatry 03/22/12 documented as of this encounter
--- OUTSIDE RECORDS SUMMARY | 2022-02-14 10:43 | XMS_ITS | Encounter Summary ---
:1970 Author Organization [employer] Address [address] [place] [address] Care Team Providers Name Role Phone Gagandeep Hinojosa MD Primary Care Provider Reason for Referral Consult/Transfer Care (Routine) - Closed Specialty Diagnoses / Procedures Referred By Contact Refer red To Contact Diagnoses Toenail fungus Type 2 diabetes mellitus with left diabetic foot ulcer (HRC) Gagandeep Hinojosa MD [facility] OUTP [address] [facility] [address] [place] [address] [place] [id number] Referral ID Status Reason Start Date Expiration Date Visits Requ ested Visits Authorized [id number] Closed 08/18/2017 02/14/2018 1 1 Scheduling Instructions [...] Face To Face Office Visit Medicine 1415 [facility] Visit [address] [place] [address] [...] He agrees to the foot/nail care at [facility]. Order faxed to Khoa at [phone]. Judy Pittman RN - 08/18/2017 9:00 AM CDT RN Drainlayer Visit Pt: Timur Krishnamurthy Referred by: Gagandeep [...] revved up. Rustam continues to see his [facility] therapist every Tuesday and notes he [...] place including monthly psychiatry, weekly therapy, weekly [facility], and [facility] walk-in every Tuesday. Rustam previously worked with Case Management through [facility] and we called [facility] together during our last visit. He states he has not connected with [facility] since, so he agrees to stop by and picking table worker the application after our visit today. Rustam understands that his mental healthis his top priority at this time, so we won't be making any significant changes to his treatment plan until he is feeling more stable. Because of the complexity of Rustam's mental health, I suggested including Lesly Rodrigues, [facility] Drainlayer in our visits for additional support. Rustam [...] meantime, Rustam states he met with an insurance claims examiner last week and has decided to apply [...] for his insulin and go back to [facility]. I stressed the importance of not making [...] at work, but not walking at the [employer] anymore.He is interested in trying basketball. Rustam [...] Since then, Rustam was seen at the [facility] ED last Tuesday and dx with cellulitis, he continues to take antibiotics, and states he is feeling better. Rustam is not wearing the walking boot because he states they told him not to. However, he notes his toenails are long and sharp, needing to be trimmed. We discussed the importance offoot/nail care and I recommended he see Khoa at [facility] because of his DM, foot ulcer, and [...] appt scheduled on 08/25/17. Complete paperwork for [facility] Side Piece Coverer today. Send email to Dr Huff about [...] specified manifestations, not stated as uncontrolled Health skilled nursing, active care coordinati on Type 2 diabetes mellitus with microalbum inuria, with long-term current use of insulin (HRC) Bipolar I disorder (HRC) Bipolar I disorder, most recent episode (or current) unspecified documented in this encounter Care Teams Personnel Adviser Relationship Specialty Start Date End Date Gagandeep Hinojosa MD PCP - General 05/17/12 [facility] [place] [address] Vane Zarate Psychiatrist Psychiatry 03/22/12 [facility] Mental Health Psychotherapist 08/04/17 documented as of this encounter
--- OUTSIDE RECORDS SUMMARY | 2022-02-14 10:43 | XMS_ITS | Encounter Summary ---
:1970 Author Organization [facility] Address [address] [place] [address] Care Team Providers Name Role Phone Gagandeep Hinojosa MD Primary Care Provider Reason for Visit Reason Comments SMOKING CESSATION Encounter Details Date Type Department Care Team Description 04/05/2017 Office Visit Gagandeep Storm Tobacco use disorder Romario Rubio MD (Primary Dx) [address] [facility] . [address] [place] [address] [address] [phone] [place], [place] [address] Social History Tobacco Use [...] Sign Reading Time Taken Comments Blood Pressure 134/80 04/05/2017 3:18 PM LANDING SIGNAL OFFICER Pulse - - Temperature - - Respiratory Rate - - Oxygen Saturation - - Inhaled Oxygen Concentration - - Weight 100.7 kg (222 lb) 04/05/2017 3:18 PM LANDING SIGNAL OFFICER Height 177.8 cm (5' 10) 04/05/2017 3:18 PM LANDING SIGNAL OFFICER Body Mass Index 31.85 04/05/2017 3:18 PM LANDING SIGNAL OFFICER documented in this encounter Progress Notes Gagandeep Hinojosa MD - 04/05/2017 3:30 PM CST ICD-10-CM 1. Tobacco use disorder ([facility]) F17.200 doxycycline monohydrate (ADOXA) 100 MG tablet buPROPion (WELLBUTRIN SR) 150 MG 12 hour release tablet CHIEF COMPLAINT: Chief Complaint Patient presents with ??? SMOKING CESSATION SUBJECTIVE : Timur Krishnamurthy is an 47 y.o. male who presents for discussion of smoking cessation. He is motivated to quit for a number of reasons, including his health with a history of coronary artery disease,diabetes, his 's pressure and dissatisfaction in his smoking, cost, and difficulty smoking whileat work. He smokes about a pack and a half daily. He has not treated by typical social cues, but does smoke on breaks at work. He does have a significant medical history of bipolar disorder, currently on Depakote. According to cited sources, in stable bipolar disorder, it is not unusual to utilize bupropion for depressive symptoms. PROBLEM LIST: Patient Active Problem List Diagnosis Date Noted ??? Tobacco abuse ([facility]) 02/24/2016 ??? Tinea versicolor 07/18/2015 ??? Diabetic eye exam ([facility]) 12/12/2013 Overview Note: Eye exam done at [facility] on 12/12/13. Mild diabetic retinopathy in right eye. ??? Tobacco use disorder ([facility]) 10/26/2012 ??? Anemia 05/02/2012 Overview Note: Anemia, unspecified ??? Health fci, active care coordination 03/22/2012 Overview Note: Molder Shoulder Pad: JOSETTE Yip [phone] Care coordination focus: T2DM, financial resources Living situation: lives with spouse Important notes: SSDI, significant insulin resistance, uses Relion insulin, commonly reaches Medicare Coverage Gap See care plan under Chart Review > [facility] Reports > [facility] CARE PLAN REPORT ??? Microalbuminuria 02/04/2012 ??? TN, old ([facility]) 09/16/2011 ??? History of PTCA 09/16/2011 Overview Note: History of PTCA 04/2011 BMS RCA ??? Obesity, Class I, BMI 30-34.9 ([facility]) 09/16/2011 Overview Note: Body mass index is 31.16 kg/(m^2). ??? Hyperlipidemia with target LDL less than 70 ([facility]) 06/08/2011 Overview Note: Hyperlipidemia LDL goal < 70 ??? ASHD (arteriosclerotic heart disease) ([facility]) 05/04/2011 ??? Erectile dysfunction 01/22/2011 Overview Note: side effect Risperdal ??? Type 2 diabetes mellitus, uncontrolled ([facility]) 12/11/2010 Overview Note: Type II or unspecified type diabetes mellitus without mention of complication, uncontrolled ([facility]) ??? Dermatophytosis of body 09/04/2010 Class: Historical Overview Note: Tinea Corporis ??? Coronary atherosclerosis ([facility]) 12/22/2009 Overview Note: LW Modifier: mod RCA, negative nuclear stress test ; CAD ??? Nonspecific abnormal results of liver function study 12/22/2009 Overview Note: Liver Function Tests Abnormal ??? Bipolar I disorder ([facility]) 09/15/2005 Overview Note: LW Onset: [id number] ; Bipolar I Dis FAMILY HISTORY OR [...] (INSULIN SYRINGE 31G X 16) 31G X 5/16 1 ML Inject 1 [...] in no acute distress. Vital Signs: BP 134/80 Ht 5' 10 (1.778 m) Wt 222 lb (100.7 kg) BMI 31.85 kg/m2 Eyes: PERRLA, full EOM. Throat: Normal oral mucosa, negative posterior pharynx Neck: Supple, without masses, lymphadenopathy or tenderness. Respiratory: Normal respiratory effort. Heart: RRR Abdomen: The abdomen was overweight, soft and nondistended, normal sounds present. No obvious massesor organomegaly. LABS : ASSESSMENT /PLAN ICD-10-CM 1. Tobacco use disorder (HRC) F17.200 doxycycline monohydrate (ADOXA) 100 MG tablet buPROPion (WELLBUTRIN SR) 150 MG 12 hour release tablet Discussed various methods, including abstinence/cold turkey, nicotine replacement products such as patches, gum, or inhaler (he has disliked these in the past), acupuncture/acupressure strategies, hypnosis, and Wellbutrin versus Chantix. I will utilize Wellbutrin and he was instructed in its administration and expectations Follow-up: 3-4 weeks ING SIGNAL OFFICER documented in this encounter Plan of Treatment Not on filedocumented as of this encounter Visit Diagnoses Diagnosis Tobacco use disorder (HRC) - Primary Tobacco use disorder documented in this encounter Care Teams Contract Runner Relationship Specialty Start Date End Date Gagandeep Hinojosa MD PCP - General 05/17/12 [facility] [place] [address] Vane Zarate Psychiatrist Psychiatry 03/22/12 documented as of this encounter
--- OUTSIDE RECORDS SUMMARY | 2022-02-14 10:43 | XMS_ITS | Encounter Summary ---
:1970 Author Organization [employer] Address [address] [place] [address] Care Team Providers Name Role Phone Gagandeep Hinojosa MD Primary Care Provider Reason for Visit Reason Comments SKIN,DRY on hands Encounter Details Date Type Department Care Team Description 06/03/2017 Office Visit [facility] [place] Gagandeep Hinojosa Dermatit is (Primary Medicine FMD Dx) [address] [facility] . [address] [place] [address] [address] [phone] [place], [place] [address] Social History Tobacco Use [...] Comments Blood Pressure 122/84 06/03/2017 9:56 AM INTERNATIONAL FIRST OFFICER Pulse - - Temperature - - Respiratory Rate - - Oxygen Saturation - - Inhaled Oxygen Concentration - - Weight 101.2 kg (223 lb) 06/03/2017 9:56 AM INTERNATIONAL FIRST OFFICER Height - - Body Mass Index 32 04/05/2017 3:18 PM INTERNATIONAL FIRST OFFICER documented in this encounter Progress Notes [...] List Diagnosis Date Noted ??? Tobacco abuse ([facility]) 02/24/2016 ??? Tinea versicolor 07/18/2015 ??? Tobacco use disorder ([facility]) 10/26/2012 ??? Anemia 05/02/2012 Overview Note: Anemia, unspecified ??? [facility], active care coordination 03/22/2012 Overview Note: Operating Room Coordinator: JOSETTE Yip [phone] Care coordination focus: T2DM, financial resources Living situation: lives with spouse Important notes: SSDI, significant insulin resistance, uses Relion insulin, commonly reaches Medicare Coverage Gap See care plan under Chart Review > [facility] Reports > [facility] CARE PLAN REPORT ??? Microalbuminuria 02/04/2012 ??? [place], old ([facility]) 09/16/2011 ??? History of PTCA 09/16/2011 Overview Note: History of PTCA 04/2011 BMS RCA ??? Obesity, Class I, BMI 30-34.9 ([facility]) 09/16/2011 Overview Note: Body mass index is 31.16 kg/(m^2). ??? Hyperlipidemia with target LDL less than 70 ([facility]) 06/08/2011 Overview Note: Hyperlipidemia LDL goal < 70 ??? ASHD (arteriosclerotic heart disease) ([facility]) 05/04/2011 ??? Erectile dysfunction 01/22/2011 Overview Note: side effect Risperdal ??? Type 2 diabetes mellitus, uncontrolled ([facility]) 12/11/2010 Overview Note: Type II or unspecified type diabetes mellitus without mention of complication, uncontrolled ([facility]) ??? Dermatophytosis of body 09/04/2010 Class: Historical Overview Note: Tinea Corporis ??? Coronary atherosclerosis ([facility]) 12/22/2009 Overview Note: LW Modifier: mod RCA, negative nuclear stress test ; CAD ??? Nonspecific abnormal results of liver function study 12/22/2009 Overview Note: Liver Function Tests Abnormal ??? Bipolar I disorder ([facility]) 09/15/2005 Overview Note: LW Onset: ; Bipolar [...] ofVaseline or Eucerin. Follow-up: If not improved RNATIONAL FIRST OFFICER documented in this encounter Plan of Treatment Not on filedocumented as of this encounter Visit Diagnoses Diagnosis Dermatitis - Primary Contact dermatitis and other eczema, due to unspecified cause documented in this encounter Care Teams Fast Food Shift Lead Relationship Specialty Start Date End Date Gagandeep Hinojosa MD PCP - General 05/17/[address] [place], [place] [address] [address] Vane Zarate Psychiatrist Psychiatry 03/22/12 documented as of this encounter
--- OUTSIDE RECORDS SUMMARY | 2022-02-14 10:43 | XMS_ITS | Encounter Summary ---
:1970 Author Organization [employer] Address [address] [place] [address] Care Team Providers Name Role Phone Gagandeep Michaud MD Primary Care Provider Reason for Visit Reason Onset Date Comments Refill 07/22/2017 Insulin Syringe-Need le U-100 (INSULIN SYRINGE 31G X 5/16) 31G X 5/16 1 ML Encounter Details Date Type Department Care Team Description 07/22/2017 Refill [place] [facility] Gagandeep Michaud, Refil l (Insulin Medicine Syringe-Needle U-[address] (INSULIN SYRINGE [place] [address] [place] [address] 5/16) 31G X 5/16 1 ML) [phone] (Wo rk) Social History Tobacco Use Types [...] encounter Nursing Notes Abbie Mitchell RN - 07/26/2017 9:28 AM CDT Renewed medication per medication refill protocol. Requested Prescriptions Signed Prescriptions Disp Refills ??? Insulin Syringe-Needle U-100 (INSULIN SYRINGE 31G X 5/16) 31G X 5/16 1 ML 400 Each 3 Sig: Inject 1 Each subcutaneously 4 times a day. Authorizing Provider: GAGANDEEP MICHAUD Ordering User: ABBIE MITCHELL Interface, Out Triblio Prov Query - 07/22/2017 2:39 PM CDT Insulin Syringe-Needle U-100 (INSULIN SYRINGE 31G X 5/16) 31G X 5/16' 1 ML Medication started: 11/15/2012 Last ordered by GAGANDEEP MICHAUD F: 06/09/2016 (408 days ago) QTY: 500, Refills: 3, Sig: inject 1 each subcutaneously 4 times a day. (unchanged) -> Refill x 12 months (maximum allowed) -> Calculate quantity and refills manually. They could not be estimated due to missing or unreadable information. Last qualifying visit: 06/03/2017 (with GAGANDEEP MICHAUD) Next scheduled visit: 08/15/2017 (in Family Practice) Powered by [employer], Reference: [id number], 07/22/2017 2:39:54 PM CDT, Pool: MANUEL REFILL ([id number]) documented in this encounter Plan of Treatment Not on filedocumented as of this encounter Visit Diagnoses Diagnosis Uncontrolled type 2 diabetes mellitus wi thout complication, with long-term current use of insulin documented in this encounter Care Teams Escalator Mechanic Relationship Specialty Start Date End Date Gagandeep Michaud MD PCP - General 05/17/12 [address] [facility] [place] [address] Vane Zarate Psychiatrist Psychiatry 03/22/12 documented as of this encounter
--- OUTSIDE RECORDS SUMMARY | 2022-02-14 10:43 | XMS_ITS | Encounter Summary ---
:1970 Author Organization [facility] Address [address], [place] [address] Care Team Providers Name Role Phone Gagandeep Hinojosa MD Primary Care Provider Reason for Referral Consult/Transfer Care (Routine) - Closed Specialty Diagnoses / Procedures Referred By Contact Refer red To Contact Diagnoses Diabetic ulcer of left midfoot associated with type 2 diabetes mellitus, limited to breakdown of skin (HRC) Gagandeep Hinojosa MD [address] [facility] [place] [address] Referral ID Status Reason Start Date Expiration Date Visits Requ ested Visits Authorized [id number] Closed 08/15/2017 11/14/2018 1 1 Scheduling Instructions Your provider has recommended an appoint ment with [facility]. You may call [phone] to sc hedule your appointment. If you [...] Dx); Romario Rubio MD Essential hypertension; [address] [facility] Bipolar I disorder (HRC); Ave. Ave Diabetic ulcer of left midfoot associate d with type 2 diabetes mellitus, limited to breakdown of skin ([facility]); [place] Vig[place] [address] [place], [place] Type 2 diabetes mellitus wit h diabetic polyneuropathy, without long-term current use of insulin ([facility]); [phone] [id number] Type II diabetes mellitus with neurologi estrella manifestations ([facility]); [phone] Tobacco use dis order (Work) Social History [...] Body Mass Index 29.41 04/05/2017 3:18 PM LAY OUT INSPECTOR documented in this encounter Progress Notes Gagandeep [...] complication, without long-term current use of insulin ([facility]) E11.65 POCT Glycosylated Hemoglobin (HB A1C) metFORMIN (GLUCOPHAGE) 500 MG tablet 2. Essential hypertension ([facility]) I10 metoprolol succinate (TOPROL XL) 50 MG 24 hour release tablet Electrolyte Panel Creatinine / GFR 3. Bipolar I disorder ([facility]) F31.9 4. Diabetic ulcer of left midfoot associated with type 2 diabetes mellitus, limited to breakdown of skin ([facility]) E11.621 Foot & Ankle/Podiatry Consult-Adult/Peds L97.421 5. Type 2 diabetes mellitus with diabetic polyneuropathy, without long-term current use of insulin ([facility]) E11.42 POCT Glycosylated Hemoglobin (HB A1C) Microalb/Creat Ratio Lipid Panel and Direct LDL(If Needed) 6. Type II diabetes mellitus with neurological manifestations ([facility]) E11.49 7. Tobacco use disorder ([facility]) F17.200 PLAN: 1. Podiatry referral, he may [...] Hemoglobin (HB A1C) (08/15/2017 8:43 AM CDT) [facility] gist Method Time Signature Glycosolated HGB [...] - 08/15/2017 8:55 AM CDT Performed at [address] [address] CLIA number [id number] Gagandeep Hinojosa MD LAB_1 Performing Organization Address City/State/ZIP Code Phon e Number PN SOFT [address] [place] [address] documented in this encounter Visit Diagnoses Diagnosis [...] insulin documented in this encounter Care Teams Expansion Joint Finisher Relationship Specialty Start Date End Date Gagandeep Hinojosa MD PCP - General 05/17/[address] [place] [address] [place] [address] Vane Zarate Psychiatrist Psychiatry 03/22/12 [facility] Psychotherapist 08/04/17 documented as of this encounter
--- OUTSIDE RECORDS SUMMARY | 2022-02-14 10:43 | XMS_ITS | Encounter Summary ---
:1970 Author Organization [employer] Address [address], [place] [address] Care Team Providers Name Role Phone Gagandeep Hinojosa MD Primary Care Provider Reason for Visit Reason Comments COUGH Encounter Details Date Type Department Care Team Description 04/04/2017 Nurse Triage [facility] Gagandeep Hinojosa MD COUGH [address] [facility] . [address] [place] [address] [place] [address] [phone] (Wo rk) Social History Tobacco Use Types [...] as of this encounter Nursing Notes Yoana Rilye RN - 04/04/2017 11:59 AM CST Reason for Disposition ? ? Taking antibiotic < 48 hours (2 days) and fever still present (SAME) Protocols used: INFECTION ON ANTIBIOTIC FOLLOW-UP [id number] Patient calling and transferred to [facility] via ER line. States he was seen at [facility] over the weekend for his cough and [...] 04/05/2017 3:30 PM Gagandeep Hinojosa MD [facility] MANUEL R/RENEWABLE ENERGY SALES documented in this encounter Plan of Treatment Not on filedocumented as of this encounter Visit Diagnoses Not on filedocumented in this encounter Care Teams State Farm Agent Team Member Relationship Specialty Start Date End Date Gagandeep Hinojosa MD PCP - General 05/17/12 [facility] [place] [id number] Vane Zarate Psychiatrist Psychiatry 03/22/12 documented as of this encounter
--- OUTSIDE RECORDS SUMMARY | 2022-02-14 10:43 | XMS_ITS | Encounter Summary ---
:[address] [address] Address [address] [place] [address] Care Team Providers Name Role Phone Gagandeep Hinojosa MD Primary Care Provider Reason for Referral Procedure/Equipment (Routine) - Closed Specialty Diagnoses / Procedures Referred By Contact Refer red To Contact Diagnoses Diabetic ulcer of left midfoot associated with type 2 diabetes mellitus, with muscle involvement without evidence of necrosis (HRC) Gagandeep Hinojosa MD Procedures Walking Boot [address] [place] [address] Referral ID Status Reason Start Date Expiration Date Visits Requ ested Visits Authorized [id number] Closed 08/05/2017 11/04/2018 1 1 Procedure/Equipment (Routine) - Incomplete Specialty Diagnoses / Procedures Referred By Contact Refer red To Contact Diagnoses Left foot pain Diabetic ulcer of left midfoot associated with type 2 diabetes mellitus, with muscle involvement without evidence of necrosis (HRC) Gagandeep Hinojosa MD Procedures XR Foot Lt 2 Views [address] [place] [address] Referral ID Status Reason Start Date Expiration Date Visits V isits Requested Authorized [id number] Incomplete 08/05/2017 11/04/2018 1 1 Reason for Visit Reason Comments EDEMA left lower leg Encounter Details Date Type Department Care Team Description 08/05/2017 Office Visit Gagandeep Storm quiana t pain (Primary Dx); Romario Rubio MD Diabetic ulcer of left midfoot associate d with type 2 diabetes mellitus, with muscle involvement without evidence of necrosis (HRC); [address] [facility] [place] [address] [address] [phone] [place] [address] Social History Tobacco [...] Body Mass Index 30.56 04/05/2017 3:18 PM CERTIFIED WELLNESS PROGRAM COORDINATOR documented in this encounter Progress Notes Gagandeep [...] List Diagnosis Date Noted ??? Tobacco abuse ([facility]) 02/24/2016 ??? Tinea versicolor 07/18/2015 ??? Tobacco use disorder ([facility]) 10/26/2012 ??? Anemia 05/02/2012 Overview Note: Anemia, unspecified ??? Health detention, active care coordination 03/22/2012 Overview Note: Machine Tack Puller: JOSETTE Yip [phone] Care coordination focus: T2DM, financial resources Living situation: lives with spouse Important notes: SSDI, significant insulin resistance, uses Relion insulin, commonly reaches Medicare Coverage Gap See care plan under Chart Review > [facility] > [facility] CARE PLAN REPORT ??? Microalbuminuria 02/04/2012 ??? [place], old ([facility]) 09/16/2011 ??? History of PTCA 09/16/2011 Overview Note: History of PTCA 04/2011 BMS RCA ??? Obesity, Class I, BMI 30-34.9 ([facility]) 09/16/2011 Overview Note: Body mass index is 31.16 kg/(m^2). ??? Hyperlipidemia with target LDL less than 70 ([facility]) 06/08/2011 Overview Note: Hyperlipidemia LDL goal < 70 ??? ASHD (arteriosclerotic heart disease) ([facility]) 05/04/2011 ??? Erectile dysfunction 01/22/2011 Overview Note: side effect Risperdal ??? Type 2 diabetes mellitus, uncontrolled ([facility]) 12/11/2010 Overview Note: Type II or unspecified type diabetes mellitus without mention of complication, uncontrolled ([facility]) ??? Dermatophytosis of body 09/04/2010 Class: Historical Overview Note: Tinea Corporis ??? Coronary atherosclerosis ([facility]) 12/22/2009 Overview Note: LW Modifier: mod RCA, negative nuclear stress test ; CAD ??? Nonspecific abnormal results of liver function study 12/22/2009 Overview Note: Liver Function Tests Abnormal ??? Bipolar I disorder ([facility]) 09/15/2005 Overview Note: LW Onset: [id number] ; Bipolar I Dis FAMILY HISTORY OR [...] FINDINGS: ??2 views were obtained. No ac [place] fracture or dislocation. No radiographic evidence of [...] (HRC) documented in this encounter Care Teams Roving Winder Relationship Specialty Start Date End Date Gagandeep Hinojosa MD PCP - General 05/17/12 [address] [place] [address] Vane Zarate Psychiatrist Psychiatry 03/22/12 [facility] Psychotherapist 08/04/17 documented as of this encounter
--- OUTSIDE RECORDS SUMMARY | 2022-02-14 10:43 | XMS_ITS | Encounter Summary ---
:1970 Author Organization [facility] Address [address] [place] [address] Care Team Providers Name Role Phone Gagandeep Hinojosa MD Primary Care Provider Reason for Visit Reason Comments HC Face To Face Visit Encounter Details Date Type Department Care Team Description 06/20/2017 Care Coord Judy Luke RN [facility] Face To Face Office Visit Medicine [address] [facility] Visit [address] [place] [id number] Social History Tobacco Use Types Packs/Day Years [...] encounter Progress Notes Judy Pittman RN - 06/20/2017 1:00 PM CST RN Child Care Associate Teacher Visit Pt: Timur Krishnamurthy Referred by: Gagandeep [...] Rustam did not bring in any readings again today Hypoglycemia (previous two weeks): none reported ASSESSMENT: Rustam was referred for care coordination services to assist with DM management and medication titration by Dr Hinojosa. Mental Health Rustam was recently hospitalized for mental health and reports he is still manic, however he states he is feeling more stable today. Rustam admits to continually having grandiose ideas, but states he wants to focus on the positive in his life, which is a recent job promotion. He is happy he will have more consistent hours of 8:00-4:00, 3 days a week, in [place]. I reminded Rustam that he needs hayley careful not to exceed the income limit for Social Security. Rustam agrees. Rustam continues to see his therapist every Tuesday at 8:00 AM and notes he is making sure to get a consistent 6-8 hours ofsleep every night. Insurance Rustam receives SSDI for his dx Bipolar Disorder. He recently applied for MA-EPD, which we previouslyconcluded that it is unlikely Rustam will qualify because he and his have a combined income of $75,000 per year. However, today Rustam is focused on the fact that he is still working on paperwork for his MA-EPD application. We also discussed that Rustam has Medicare and prescription coverage, he does not have any supplemental insurance and pays the remaining 20% [id number], using his spouse's HSA. I previously recommended Rustam consider signing up for supplemental coverage, but noted he will likely need to wait for open-enrollment in the fall. Just because it isn't currently open-enrollment, doesn't mean he cannot do his research now, learn about his options, and be ready to sign-up for coverage in the fall. We discussed the possibility of inquiring with his spouse's employer/HR to see if Rustam could be added to her plan as his secondary coverage. Medication Rustam is supposed to be using a medication regimen of metformin, Tresiba U200 and [employer] Relion insulin to manage his T2DM. However, he admits he has been sporadic with taking his Regular insulin. I stressed to Rustam that if he is not taking all his medication as directed, his BG will be high, and there will be negative consequences to his health. Rustam understands, but states I'd rather focus on the positive right now. Blood Glucose Rustam admits he continue to not SMBG. He understands the importance of checking his BG while taking insulin, for safety, but just hasn't been following through. Rustam reports he has lofty goals, including checking his BG and taking his insulin, that he struggles with on a daily basis. He understandsthat I cannot safely adjust his insulin without BG readings. Diet Rustam states he does not have time to review his diet today, but assures me he is eating better, eating less, and losing weight. He states he wants to lose another 50 lbs over the next year because it will be better for his health. Exercise Rustam reports he is not exercising at this time, rather he is periodically walking at the [facility] 2-3 times a week. He wants to do more, but has struggled. I reminded Rustam of the importance of physical activity with glucose control. Smoking Cessation Rustam smells strongly of cigarette smoke again. He reports he continues to work with a telephonic ice skating coach on smoking cessation. He is happy to report he has cut back to less than a ppd. Rustam has set anew quit date of 08/13/17, depending on his mental health. Follow-up Rustam reports he does best when he is held accountable and has close follow-up. Therefore, he would like to meet with me regularly, every 2-3 weeks, until his A1c is at goal. I agreed. Rustam only had about 20 minutes to met with me today because of his work schedule. We set up a follow up appt on 07/12/17, he will bring his BG readings. Family/social support: Patient attended today's visit alone. He currently lives with spouse. Current activity regimen: none Patient barrier(s) to learning identified: Finance and Emotional. BG Goals: Health Custodial Lab Goal <7 Pre-meal: 70-130 mg/dL PPG: [...] to stay at 2-4 choices per meal. Continue to work with ice skating coach to decrease the number of cigarettes smoked per day. Research supplemental insurance coverage with spouse's HR. Follow up scheduled on 07/12/17, bring readings. Rustam to call if symptoms of hypoglycemia or readings < 70 mg/dL. Rustam verbalized understanding and agreed with plan of care and follow up. RT SERVICE ATTENDANT documented in this encounter Plan of Treatment Not on filedocumented as of this encounter Visit Diagnoses Diagnosis Health alf, active care coordinati on - Primary Uncontrolled type 2 diabetes mellitus wi th hyperglycemia, with long-term current use of insulin (HRC) Bipolar I disorder (HRC) Bipolar I disorder, most recent episode (or current) unspecified documented in this encounter Care Teams [facility] Consultant Relationship Specialty Start Date End Date Gagandeep Hinojosa MD PCP - General 05/17/12 [address] [place] [address] Vane Zarate Psychiatrist Psychiatry 03/22/12 documented as of this encounter
--- OUTSIDE RECORDS SUMMARY | 2022-02-14 10:43 | XMS_ITS | Encounter Summary ---
:1970 Author Organization [employer] Address [address] [place] [address] Care Team Providers Name Role Phone Gagandeep Hinojosa MD Primary Care Provider Reason for Visit Reason Comments Diabetes Encounter Details Date Type Department Care Team Description 02/16/2017 Office Visit Gagandeep Storm Unconfaribao lled type 2 diabetes mellitus with diabetic polyneuropathy, with long-term current use of insulin (HRC) (Primary Dx); Romario Rubio MD Encounter for immunization; [address] [facility] Diabetic polyneuropathy associated with type 2 diabetes mellitus (HRC); Ave[address] Ave detention current use of insulin (HRC); [place] [address] [place] Type 2 diabetes mellitus wit h diabetic polyneuropathy, with long- term current use of insulin (HRC); [phone] [id number] Hyperlipidemia, unspecified hyperlipidem ia type; [phone] Tobacco use dis order; (Work) ASHD (arteriosclerotic [...] controlled ICD-10-CM 1. ASHD (arteriosclerotic heart disease) ([facility]) I25.10 Basic Metabolic Panel 2. Encounter for immunization Z23 Influenza (Fluarix or Fluzone 0.5, 3+ yrs) 3. Uncontrolled type 2 diabetes mellitus with diabetic polyneuropathy, with long-term current use ofinsulin ([facility]) E11.42 POCT Glycosylated Hemoglobin (HB A1C) Z79.4 Microalb/Creat Ratio E11.65 4. Diabetic polyneuropathy associated with type 2 diabetes mellitus ([facility]) E11.42 5. parts counterman current use of insulin ([facility]) Z79.4 6. Type 2 diabetes mellitus with diabetic polyneuropathy, with long-term current use of insulin ([facility]) E11.42 Z79.4 7. Hyperlipidemia, unspecified hyperlipidemia type ([facility]) E78.5 Lipid Panel and Direct LDL(If Needed) 8. Tobacco use disorder ([facility]) F17.200 PLAN: 1. Again, his major difficulty [...] (ABNORMAL) Microalb/Creat Ratio (08/15/2017 8:50 AM CDT) [facility] [employer] Method Time Signature Microalbumin 150.2 mg/L PN SOFT Urine U Creat Random 113 mg/dL PN SOFT Microalbumin/Crea 132.9 (H) 0.0 - PN SOFT tinine Ratio 30.0 Specimen Anatomical Collection Method Collection Time Receive d Time (Source) Location / / Volume Laterality Urine specimen 08/15/2017 8:50 AM 018 (specimen) CDT 11:33 AM CDT Narrative PN SOFT - 08/15/2017 12:05 PM CDT Performed at [facility], [address] [place] [address] CLIA number [id number] Gagandeep Hinojosa MD LAB_1 Performing Organization Address City/State/ZIP Code Phon e Number PN SOFT [address] [place] [address] [phone] (ABNORMAL) Lipid Panel and Direct LDL(If Needed) (08/15/2017 8:43 AM CDT) [facility] [employer] Method Time Signature Cholesterol 102 0 - [...] - 08/15/2017 3:34 PM CDT Performed at [facility], [address] [place] [address] CLIA number [id number] Gagandeep Hinojosa MD LAB_1 Performing Organization Address [facility] Phon e Number PN SOFT [address] [place] [address] (ABNORMAL) POCT Glycosylated Hemoglobin (HB A1C) (05/17/2017 1:59 PM SEO MANAGER) [facility] gist Method Time Signature Glycosolated HGB [...] Volume Laterality 05/17/2017 1:59 PM 8 1:58 SEO MANAGER PM SEO MANAGER Narrative PN SOFT - 05/17/2017 2:15 PM SEO MANAGER Performed at [facility], [address] [place] [address] CLIA number [id number] Gagandeep Hinojosa MD LAB_1 Performing Organization Address [facility] Phon e Number PN SOFT [address] [place] [address] documented in this encounter Visit Diagnoses Diagnosis Uncontrolled type 2 diabetes mellitus wi th diabetic polyneuropathy, with long-term current use of insulin - Primary Encounter for immunization Need for other specified prophylactic va ccination against single bacterial disease Diabetic polyneuropathy associated with type 2 diabetes mellitus (HRC) detention current use of insulin (HRC) Encounter for long-term (current) use of insulin Type 2 diabetes mellitus with diabetic p olyneuropathy, with long-term current use of insulin (HRC) Hyperlipidemia, unspecified hyperlipidem ia type (HRC) Tobacco use disorder (HRC) Tobacco use disorder ASHD (arteriosclerotic heart disease) ([facility]) Coronary atherosclerosis of unspecified type of vessel, [place] or graft Uncontrolled type 2 diabetes mellitus wi th diabetic polyneuropathy, with long-term current use of insulin Hyperlipidemia, unspecified hyperlipidem ia type (HRC) Uncontrolled type 2 diabetes mellitus wi th diabetic polyneuropathy, with long-term current use of insulin Uncontrolled type 2 diabetes mellitus wi thout complication, without long-term current use of insulin documented in this encounter Care Teams Band Tacker Relationship Specialty Start Date End Date Gagandeep Hinojosa MD PCP - General 05/17/12 1415 [facility] [place] [address] Vane Zarate Psychiatrist Psychiatry 03/22/12 documented as of this encounter
--- OUTSIDE RECORDS SUMMARY | 2022-02-14 10:43 | XMS_ITS | Encounter Summary ---
:1970 Author Organization [facility] Address [address] [place] [address] Care Team Providers Name Role Phone Gagandeep Michaud MD Primary Care Provider Reason for Visit Reason Comments Refill buPROPion (WELLBUTRIN SR) 15 0 MG 12 hour release tablet [Pharmacy Med Name: BUPROPION SR 150MG TABLETS ( 12 H)] Encounter Details Date Type Department Care Team Description 04/05/2017 Refill Gagandeep Storm Refil l (buPROPion Medicine (WELLBUTRIN SR) [address] 12 hour release tablet [place] [address] [place] [address] [Pharmacy Med Name: [phone] (Wo rk) BUPROPION SR 150MG TABLETS ( [...] Provider: GAGANDEEP MICHAUD Ordering User: LEN ROWELL PHONE DIRECTORY DELIVERER Interface, Out TextDigger Query - 04/05/2017 4:16 PM CST buPROPion [...] 80 mm Hg on 04/05/2017 Powered by [employer], Reference: [id number], 04/05/2017 4:16:49 PM TELEPHONE DIRECTORY DELIVERER, Pool: MANUEL LANDAILL ([id number]) PHONE DIRECTORY DELIVERER documented in this encounter Plan of Treatment Not on filedocumented as of this encounter Visit Diagnoses Diagnosis Tobacco use disorder (HRC) Tobacco use disorder documented in this encounter Care Teams Gun Synchronizer Relationship Specialty Start Date End Date Gagandeep Michaud MD PCP - General 05/17/12 [facility] [place] [address] Vane Zarate Psychiatrist Psychiatry 03/22/12 documented as of this encounter
--- OUTSIDE RECORDS SUMMARY | 2022-02-14 10:44 | XMS_ITS | Encounter Summary ---
:1970 Author Organization [employer] Address [address] [address] Care Team Providers Name Role Phone Gagandeep Hinojosa MD Primary Care Provider Reason for Visit Reason Onset Date Comments [facility] Phone Visit 06/24/2016 Encounter Details Date Type Department Care Team Description 06/24/2016 Care Coord Phone [facility] Deborah Rodrigues, [facility] Phone Visit [facility] 1415 [facility] . [address] [place] [address] [place] [address] [phone] Social History Tobacco Use Types Packs/Day Years Used Date Smoking Tobacco: Every Day Cigarettes 0 25 Smokeless Tobacco: Former Qu it: 10/25/2012 Comments: Smoking History Packs/day: Alcohol Use Standard Drinks/Week Comments No 0 (1 standard drink = 0.6 oz pure Alcoho lic Drinks/day: Amount:0; alcohol) Freq:Never; Sex Assigned at Date Recorded Not on file documented as of this encounter Progress Notes Deborah Rodrigues, [facility] - 06/24/2016 3:00 PM CST Digester Hand - Phone Call Contact with: Rustam Reason for call: Care Coordination Discussion/actions: Called Rustam to check-in and see how things are going. He stated that he is feeling much better, as his diabetes medication is finally figured out. Rustam sounded more calm on the phone and said that he is feeling less anxious. Reports no thoughts of suicide and has not been pacing around the house. Rustam also stated that he slept more regularly last night and is feeling good overall. Rustam said that he is planning on attending his therapy appointment on Tuesday and would still like an [facility] phone call on Tuesday. Denied any other concerns at this time and will call if he needs anything. Shared plan: -[facility] phone follow-up 06/29. Pt verbalized understanding and agreed with plan of care and follow up. NUFACTURING TECHNICIAN documented in this encounter Plan of Treatment Not on filedocumented as of this encounter Visit Diagnoses Diagnosis Health fci, active care coordinati on - Primary documented in this encounter Care Teams Desizing Machine Operator Head End Relationship Specialty Start Date End Date Gagandeep Hinojosa MD PCP - General 05/17/[address] [place] [address] [place] [address] Vane Zarate Psychiatrist Psychiatry 03/22/12 documented as of this encounter
--- OUTSIDE RECORDS SUMMARY | 2022-02-14 10:44 | XMS_ITS | Encounter Summary ---
:1970 Author Organization [facility] Address [address] [place] [address] Care Team Providers Name Role Phone Gagandeep Hinojosa MD Primary Care Provider Reason for Visit Reason Onset Date Comments [facility] Phone Visit 07/01/2016 Encounter Details Date Type Department Care Team Description 07/01/2016 Care Coord Phone Judy Luke R N [facility] Phone Visit Medicine 1415 [facility] 1415 [facility] [place] [address] [place] [address] [phone] Social History Tobacco Use Types Packs/Day Years [...] encounter Progress Notes Judy Pittman RN - 07/01/2016 9:51 AM CST RN Dinkey Mechanic - Diabetes Follow-Up Current diabetes medication regimen: Tresiba 76 units in AM Novolin R 73 BID Metformin 500 mg BID (unable to tolerate full therapeutic dose secondary to GI side effects) CURRENT GLUCOSE PATTERNS: since 06/29/16 Fastin - 89 (one reading of 192 after eating during the night) Before lunch: 110 - 163 Before dinner: 95 - 102 Before bed: 86 - 92 Hypoglycemia (previous two weeks): 73 Assessment/education: Rustam is calling to report he hasn't had any further episodes of hypoglycemia,but did get close with a fasting reading of 73. He is still very tightly controlled (aside from one high reading secondary to nighttime snacking), and I am concerned he is still at an increased risk for hypoglycemia. Therefore, I advised Rustam to decrease his Tresiba insulin to 74 units (U200 is dosedin 2 unit increments). Also, Rustam requests to decrease his Regular insulin to 72 units BID because the line on the syringe at the 73 units is difficult to read. I agreed. Rustam reports his mental health continues to improve. I can hear Rustam is more calm and less anxious. He notes he started Seroquel to help with sleep and continues to work with his therapist and ERLIN Salas. Teach back method used to verify understanding. Shared plan: Per DM SO, decrease Tresiba to 74 units in AM. Per DM SO, decrease Regular to 72 BID. SMBG before meals and HS, as directed. Follow up with Endocrinology on 07/19/16. Phone follow up as needed. Call if sx of hypoglycemia or glucose readings < 70 mg/dL. Rustam verbalized understanding and agreed with plan of care and follow up. GRATED CIRCUIT IC LAYOUT DESIGNER documented in this encounter Plan of Treatment Not on filedocumented as of this encounter Visit Diagnoses Diagnosis Health chcf, active care coordinati on - Primary Uncontrolled type 2 diabetes mellitus wi th hyperglycemia, with long-term current use of insulin (HRC) Bipolar I disorder (HRC) Bipolar I disorder, most recent episode (or current) unspecified documented in this encounter Care Teams Rig Hand Relationship Specialty Start Date End Date Gagandeep Hinojosa MD PCP - General 05/17/12 1413 [facility] [place] [address] Vane Zarate Psychiatrist Psychiatry 03/22/12 documented as of this encounter
--- OUTSIDE RECORDS SUMMARY | 2022-02-14 10:44 | XMS_ITS | Encounter Summary ---
:1970 Author Organization [employer] Address [address] [place] [address] Care Team Providers Name Role Phone Gagandeep Hinojosa MD Primary Care Provider Reason for Visit Reason Onset Date Comments [facility] Phone Visit 07/02/2016 Encounter Details Date Type Department Care Team Description 07/02/2016 Care Coord Phone [facility] Deborah Rodrigues, [facility] Phone Visit [facility] 1415 [facility] . [address] [place] [address] [place] [address] [phone] Social History Tobacco Use Types Packs/Day Years Used Date Smoking Tobacco: Every Day Cigarettes 0 25 Smokeless Tobacco: Former Qu it: 10/25/2012 Comments: Smoking History Packs/day: Alcohol Use Standard Drinks/Week Comments No 0 (1 standard drink = 0.6 oz pure Alcoho lic Drinks/day: Amount:0; alcohol) Freq:Never; Sex Assigned at Date Recorded Not on file documented as of this encounter Progress Notes Deborah Rodrigues, [facility] - 07/02/2016 2:30 PM CST Crude Oil Treater - Phone Call Contact with: Rustam Reason [...] in approximately one weekto check-in. Shared plan: -[facility] phone follow-up one week. Pt verbalized understanding and agreed with plan of care and follow up. DECK SUPERVISOR documented in this encounter Plan of Treatment Not on filedocumented as of this encounter Visit Diagnoses Diagnosis Health jail, active care coordinati on - Primary documented in this encounter Care Teams Plan Consultant Relationship Specialty Start Date End Date Gagandeep Hinojosa MD PCP - General 05/17/12 [address] [place] [address] Vane Zarate Psychiatrist Psychiatry 03/22/12 documented as of this encounter
--- OUTSIDE RECORDS SUMMARY | 2022-02-14 10:44 | XMS_ITS | Encounter Summary ---
:1970 Author Organization [facility] Address [address] [place] [address] Care Team Providers Name Role Phone Gagandeep Hinojosa MD Primary Care Provider Reason for Visit Reason Comments RESULTS, TEST emg Encounter Details Date Type Department Care Team Description 10/22/2016 Office Visit Gagandeep Storm Sensory neuropathy Romario Rubio MD (Primary Dx) [address] [facility] . [address] [place] [address] [address] [phone] [place], [place] [address] Social History Tobacco Use [...] - 10/22/2016 2:00 PM CDT Vitamin D 0657-0947 IU daily Vitamin B 6 50 mg dailt Folic 1 mg daily Multi-vitamin documented in this encounter Progress Notes Gagandeep Hinojosa MD - 10/22/2016 2:00 PM CDT ICD-10-CM 1. 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 Tobacco abuse ([facility]) 02/24/2016 ??? Tinea versicolor 07/18/2015 ??? Diabetic eye exam ([facility]) 12/12/2013 Overview Note: Eye exam done at [facility] on 12/12/13. Mild diabetic retinopathy in right eye. ??? Tobacco use disorder ([facility]) 10/26/2012 ??? ACS (acute coronary syndrome) ([facility]) 10/25/2012 ??? Anemia 05/02/2012 ??? Health senior care, active care coordination 03/22/2012 Overview Note: Hand Thermal Cutter: JOSETTE Yip [phone] Care coordination focus: T2DM, financial resources Living situation: lives with spouse Important notes: SSDI, significant insulin resistance, uses Relion insulin, commonly reaches Medicare Coverage Gap See care plan under Chart Review > [facility] Reports > [facility] CARE PLAN REPORT ??? Microalbuminuria 02/04/2012 ??? AK, old ([facility]) 09/16/2011 ??? History of PTCA 09/16/2011 ??? Obesity, Class I, BMI 30-34.9 ([facility]) 09/16/2011 Overview Note: Body mass index is 31.16 kg/(m^2). ??? Hyperlipidemia with target LDL less than 70 ([facility]) 06/08/2011 ??? ASHD (arteriosclerotic heart disease) ([facility]) 05/04/2011 ??? Erectile dysfunction 01/22/2011 Overview Note: side effect Risperdal ??? Type 2 diabetes mellitus, uncontrolled ([facility]) 12/11/2010 ??? Dermatophytosis of body 09/04/2010 Class: Historical ??? Coronary atherosclerosis ([facility]) 12/22/2009 Overview Note: LW Modifier: mod RCA, negative nuclear stress test ??? Nonspecific abnormal results of liver function study 12/22/2009 ??? Bipolar I disorder ([facility]) 09/15/2005 Overview Note: LW Onset: FAMILY [...] werenormal. ASSESSMENT /PLAN ICD-10-CM 1. 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
--- OUTSIDE RECORDS SUMMARY | 2022-02-14 10:44 | XMS_ITS | Encounter Summary ---
:1970 Author Organization [employer] Address [address], [place] [address] Care Team Providers Name Role Phone Gagandeep Hinojosa MD Primary Care Provider Reason for Visit Reason Onset Date Comments Refill 11/26/2016 Encounter Details Date Type Department Care Team Description 11/26/2016 Refill [facility] [address]ar MBBS Refill Endocrinology [address] [facility] [address] [address] [place] [address] [phone] Social History Tobacco Use Types Packs/Day Years [...] uncontrolled documented in this encounter Care Teams Milk Receiver Tank Truck Relationship Specialty Start Date End Date Gagandeep Hinojosa MD PCP - General 05/17/12 1415 [facility] [place] [address] Vane Zarate Psychiatrist Psychiatry 03/22/12 documented as of this encounter
--- OUTSIDE RECORDS SUMMARY | 2022-02-14 10:44 | XMS_ITS | Encounter Summary ---
:1970 Author Organization [employer] Address [address] [place] [address] Care Team Providers Name Role Phone Gagandeep Michaud MD Primary Care Provider Encounter Details Date Type Department Care Team Description 12/03/2016 Refill Order [place] [facility] Gagandeep Michaud MD [address] [facility] . [address] [place] [address] [place] [address] [phone] (Wo rk) Social History Tobacco Use Types [...] - NEXT LAB APPOINTMENT: None Powered by [employer], Reference: [id number], 12/03/2016 2:46:31 PM CDT, Pool: MANUEL MOORE ([id number]) documented in this encounter Plan of Treatment Not on filedocumented as of this encounter Visit Diagnoses Diagnosis Encounter for long-term (current) use of medications - Primary Encounter for long-term (current) use of other medications documented in this encounter Care Teams High Density Press Laborer Relationship Specialty Start Date End Date Gagandeep Michaud MD PCP - General 05/17/12 [address] [place] [address] Vane Zarate Psychiatrist Psychiatry 03/22/12 documented as of this encounter
--- OUTSIDE RECORDS SUMMARY | 2022-02-14 10:44 | XMS_ITS | Encounter Summary ---
:1970 Author Organization [employer] Address [address] [place] [address] Care Team Providers Name Role Phone Gagandeep Hinojosa MD Primary Care Provider Reason for Visit Reason Onset Date Comments Patient Preference Scheduling 09/07/2016 Encounter Details Date Type Department Care Team Description 09/07/2016 Telephone Verito Mackenzie Patient Preference Rehabilitative Medic nicholas Rubio MD Scheduling [address] [place] [address] [place], [place] [phone] (Wo rk) Social History Tobacco Use Types [...] filedocumented in this encounter Care Teams Cone Treater Relationship Specialty Start Date End Date Gagandeep Hinojosa MD PCP - General 05/17/12 [facility], [place] [address] Vane Zarate Psychiatrist Psychiatry 03/22/12 documented as of this encounter
--- OUTSIDE RECORDS SUMMARY | 2022-02-14 10:44 | XMS_ITS | Encounter Summary ---
:1970 Author Organization [facility] Address [address] [place] [address] Care Team Providers Name Role Phone Gagandeep Hinojosa MD Primary Care Provider Reason for Visit Reason Onset Date Comments [facility] Phone Visit 07/12/2016 Encounter Details Date Type Department Care Team Description 07/12/2016 Care Coord Phone [facility] Deborah Rodrigues, [facility] Phone Visit [facility] 1415 [facility] . [address] [place] [address] [place] [address] [phone] Social History Tobacco Use Types Packs/Day Years Used Date Smoking Tobacco: Every Day Cigarettes 0 25 Smokeless Tobacco: Former Qu it: 10/25/2012 Comments: Smoking History Packs/day: Alcohol Use Standard Drinks/Week Comments No 0 (1 standard drink = 0.6 oz pure Alcoho lic Drinks/day: Amount:0; alcohol) Freq:Never; Sex Assigned at Date Recorded Not on file documented as of this encounter Progress Notes Deborah Rodrigues, [facility] - 07/12/2016 2:30 PM CDT County Historian - Phone Call Contact with: Rustam Reason for call: Care Coordination Discussion/actions: Received a phone call from Rustam, stating that he has canceled his [facility] health[facility] at [facility]. He said that he did not feel like these appointments were beneficial, it was kind of a cold in sterile environment. Rustam said that his doctor put him on Ativan PRN, to help reduce his anxiety. He requested to meet with Care Coordination for counseling, as I feel comfortable with you. I explained that I do not do half-way counseling, but could help coordinate appropriate mental health services. I agreed to meet with Rustam to discuss appropriate services and goover his coping skills while at home. Rustam agreed with this plan and denied any other concerns at this time. Shared plan: -[facility] appointment 07/13 at 11:00. Pt verbalized understanding and agreed with plan of care and follow up. documented in this encounter Plan of Treatment Not on filedocumented as of this encounter Visit Diagnoses Diagnosis Health fci, active care coordinati on - Primary documented in this encounter Care Teams Rigging And Controls Aircraft Mechanic Relationship Specialty Start Date End Date Gagandeep Hinojosa MD PCP - General 05/17/12 1415 [facility] [place] [address] Vane Zarate Psychiatrist Psychiatry 03/22/12 documented as of this encounter
--- OUTSIDE RECORDS SUMMARY | 2022-02-14 10:44 | XMS_ITS | Encounter Summary ---
:1970 Author Organization [facility] Address [address] [place] [address] Care Team Providers Name Role Phone Gagandeep Hinojosa MD Primary Care Provider Reason for Visit Reason Onset Date Comments [facility] Phone Visit 06/24/2016 Encounter Details Date Type Department Care Team Description 06/24/2016 Care Coord Phone Judy Luke R N [facility] Phone Visit Medicine 1415 [facility] 1415 [facility] [place] [address] [place] [address] [phone] Social History Tobacco Use Types Packs/Day Years [...] RN - 06/24/2016 1:13 PM CST RN Log Haul Operator - Diabetes Follow-Up Current diabetes medication [...] with plan of care and follow up. FURNITURE SAW TENDER documented in this encounter Plan of Treatment Not on filedocumented as of this encounter Visit Diagnoses Diagnosis [facility], active care coordinati on - Primary Type 2 diabetes mellitus with hyperglyce meg, with long-term current use of insulin (HRC) Tobacco abuse (HRC) Tobacco use disorder Bipolar I disorder (HRC) Bipolar I disorder, most recent episode (or current) unspecified documented in this encounter Care Teams Public Transportation Inspector Relationship Specialty Start Date End Date Gagandeep Hinojosa MD PCP - General 05/17/12 1415 [facility] [place] [address] Vane Zarate Psychiatrist Psychiatry 03/22/12 documented as of this encounter
--- OUTSIDE RECORDS SUMMARY | 2022-02-14 10:44 | XMS_ITS | Encounter Summary ---
:1970 Author Organization [facility] Address [address] [place] [address] Care Team Providers Name Role Phone Gagandeep Hinojosa MD Primary Care Provider Reason for Visit Reason Onset Date Comments [facility] Phone Visit 07/05/2016 Encounter Details Date Type Department Care Team Description 07/05/2016 Care Coord Phone [facility] Deborah Rodrigues, [facility] Phone Visit [facility] [address] [place] . [address] [place] [address] [place] [address] [phone] Social History Tobacco Use Types Packs/Day Years Used Date Smoking Tobacco: Every Day Cigarettes 0 25 Smokeless Tobacco: Former Qu it: 10/25/2012 Comments: Smoking History Packs/day: Alcohol Use Standard Drinks/Week Comments No 0 (1 standard drink = 0.6 oz pure Alcoho lic Drinks/day: Amount:0; alcohol) Freq:Never; Sex Assigned at Date Recorded Not on file documented as of this encounter Progress Notes Deborah Rodrigues, [facility] - 07/05/2016 3:30 PM CDT Auxiliary Equipment Operator - Phone Call Contact with: Rustam [...] he has a Psychiatrist, therapist and RN Auxiliary Equipment Operator that check-in with himregularly. Rustam agreed to [...] Primary documented in this encounter Care Teams Aircraft Pneudraulics Repairer Relationship Specialty Start Date End Date Gagandeep Hinojosa MD PCP - General 05/17/12 1415 [facility] [place] [address] Vane Zarate Psychiatrist Psychiatry 03/22/12 documented as of this encounter
--- OUTSIDE RECORDS SUMMARY | 2022-02-14 10:44 | XMS_ITS | Encounter Summary ---
:1970 Author Organization [facility] [employer] Address [address] [place] [address] Care Team Providers Name Role Phone Gagandeep Hinojosa MD Primary Care Provider Reason for Referral Consult/Transfer Care (Routine) - Closed Specialty Diagnoses / Procedures Referred By Contact Refer red To Contact Diagnoses Uncontrolled type 2 diabetes mellitus with hyperglycemia, with long-term current use of insulin (HRC) Gagandeep Hinojosa MD [address] [place] [address] Referral ID Status Reason Start Date Expiration Date Visits Requ ested Visits Authorized [id number] Closed 06/21/2016 09/20/2017 1 1 Scheduling Instructions Your provider has recommended an appoint ment with [facility]. You may call [phone] to schedule your a ppointment. If you do not schedule an appointment within the next 1 to 3 busin ess days, we will call you to help arrange your appointment. We suggest you call [employer] about your coverage and benefits for this appointme nt. E UNIT MANAGER Reason for Visit Reason Onset Date Comments [facility] Phone Visit 06/21/2016 Encounter Details Date Type Department Care Team Description 06/21/2016 Care Coord Phone Judy Luke R N [facility] Phone Visit Medicine 1415 [facility] 1415 [facility] . [place] [address] [place] [address] [phone] Social History Tobacco Use Types Packs/Day Years [...] RN - 06/21/2016 10:40 AM CST RN Slot Router - Diabetes Follow-Up Current diabetes medication regimen: [...] of hypoglycemia. He reports he went to [facility] for evaluation of his dx Bipolar Disorder [...] for DMmanagement. I had spoke with Dr Hinojosa previously, and he agreed. I placed a [...] calm him, also offering to have our City Jailer, Lesly Rodrigues, call later this week to [...] plan of care and follow up. E UNIT MANAGER documented in this encounter Plan of Treatment Scheduled Referrals Name Type Priority Associated Diagnoses Order S [facility] Endocrinology Referral Routine Uncontrolled type 2 Ordered : 06/21/2016 Consult-Adults diabetes mellitus with hyperglycemia, with long-term current use of insulin (HRC) documented as of this encounter Visit Diagnoses Diagnosis Uncontrolled type 2 diabetes mellitus wi th hyperglycemia, with long-term current use of insulin (HRC) - Primary Health [facility], active care coordinati on documented in this encounter Care Teams Transportation Escort Relationship Specialty Start Date End Date Gagandeep Hinojosa MD PCP - General 05/17/12 [address] [place] [address] Vane Zarate Psychiatrist Psychiatry 03/22/12 documented as of this encounter
--- OUTSIDE RECORDS SUMMARY | 2022-02-14 10:44 | XMS_ITS | Encounter Summary ---
:1970 Author Organization [employer] Address [address], [place] [address] Care Team Providers Name Role Phone Gagandeep Hinojosa MD Primary Care Provider Reason for Referral (Routine) - Closed Specialty Diagnoses / Procedures Referred By Contact Refer red To Contact Diagnoses Dyslipidemia (HRC) Que Lal MD Procedures Outreach Nuclear Study [address] [facility] [address] [place] [address] Referral ID Status Reason Start Date Expiration Date Visits Requ ested Visits Authorized [id number] Closed 01/04/2017 04/05/2018 1 1 Encounter Details Date Type Department Care Team Description 12/31/2016 Hospital Encounter Heart & Vascular Dysli pidemia (Primary Center Nuclear Dx) Cardiology [address] [facility]. [place], [place] [id number] Social History Tobacco Use Types Packs/Day Years [...] MG daily. tabletIndications: ASHD (arteriosclerotic heart disease) ([facility]), Hyperlipidemia with target LDL less than 70 ([facility]) Charcoal 260 Take 1 Tab by mouth [...] SOPNIndications: Controlled type 2 diabetes with neuropathy ([facility]) insulin pen needle (BD Inject subcutaneously 100 [...] unspecified vessel or lesion type, unspecified whether [place]et[place] or transplanted heart (HRC), Essential hypertension (HR) [...] NM CARDIAC MPI STRESS TEST ( (Order [id number]) STRESS TEST PHARMACOLOGICAL ( (Order [id number]) Original Order Diagnosis: Dyslipidemia [E78.5 (ICD-10-CM)] Coronary artery disease, angina presence unspecified, unspecified vessel or lesion type, unspecifiedwhether venetie or transplanted heart [I25.10 (ICD-10-CM)] Chest pain, rule out acute myocardial infarction [R07.9 (ICD-10-CM)] Dyslipidemia [E78.5 (ICD-10-CM)] Coronary artery disease, angina presence unspecified, unspecified vessel or lesion type, unspecifiedwhether [place]et[place] or transplanted heart [I25.10 (ICD-10-CM)] Chest pain, rule out acute myocardial infarction [R07.9 (ICD-10-CM)] Reading Provider(s) Alexei Pratt MBBS PACs images are not viewable in [employer] Link. See text report below. 2017 12:32 [...] Patient Information Patient Name Sex Timur Krishnamurthy ([id number]) Male 1970 documented in this encounter Plan [...] NM CARDIAC MPI STRESS TEST (Acce ssion [id number]) (Order [id number]) STRESS TEST PHARMACOLOGICAL ( (Order [id number]) Original Order Diagnosis: Dyslipidemia [E78.5 (ICD-10-CM)] Coronary artery disease, angina presence unspecified, unspecified vessel or lesion type, unspecified wheth er venetie or transplanted heart [I25.10 (ICD-10-CM)] Chest pain, rule out acute myocardial in farction [R07.9 (ICD-10-CM)] Dyslipidemia [E78.5 (ICD-10-CM)] Coronary artery disease, angina presence unspecified, unspecified vessel or lesion type, unspecified wheth er venetie or transplanted heart [I25.10 (ICD-10-CM)] Chest pain, rule out acute myocardial in farction [R07.9 (ICD-10-CM)] ?? Reading Provider(s) ?? Alexei Pratt MBBS PACs images are not viewable in [employer] Link. See text report below. ?? 2017 12:32 PM - Alexei Pratt MBBS Narrative & Impression ?? STRESS NUCLEAR PERFUSION SCAN - 7 INDICATIONS: Coronary artery disease wit h history of inferior wall myocardial infarction. Dyslipidemia . Rest stress single isotope SPECT imaging was performed with [employer] walk protocol. BASELINE ELECTROCARDIOGRAM: Normal sinus rhythm. [...] Information ?? Patient Name Sex Timur Krishnamurthy ([id number]) Male 1970 Procedure Note Deborah Mathews - 12/31/2016 11:59 PM CDT Results NM CARDIAC MPI STRESS TEST (Acce ssion [id number]) (Order [id number]) STRESS TEST PHARMACOLOGICAL ( (Order [id number]) Original Order Diagnosis: Dyslipidemia [E78.5 (ICD-10-CM)] Coronary artery disease, angina presence unspecified, unspecified vessel or lesion type, unspecified whether venetie or transplanted heart [I25.10 (ICD-10-CM)] Chest pain, rule out acute myocardial in farction [R07.9 (ICD-10-CM)] Dyslipidemia [E78.5 (ICD-10-CM)] Coronary artery disease, angina presence unspecified, unspecified vessel or lesion type, unspecified whether venetie or transplanted heart [I25.10 (ICD-10-CM)] Chest pain, rule out acute myocardial in farction [R07.9 (ICD-10-CM)] Reading Provider(s) Alexei Pratt MBBS PACs images are not viewable in [employer] Link. See text report below. 2017 12:32 [...] Patient Information Patient Name Sex Timur Schulz ([id number]) Male 1970 Que Lal MD PN CARDIAC SERVICES ORDERABL ES Performing Organization Address City/State/ZIP Code Phon e Number POCT PN POCT documented in this encounter Visit Diagnoses Diagnosis Dyslipidemia (HRC) - Primary Other and unspecified hyperlipidemia documented in this encounter Care Teams Drilling Engineer Relationship Specialty Start Date End Date Gagandeep Hinojosa MD PCP - General 05/17/12 [facility] [place] [address] Vane Zarate Psychiatrist Psychiatry 03/22/12 documented as of this encounter
--- OUTSIDE RECORDS SUMMARY | 2022-02-14 10:44 | XMS_ITS | Encounter Summary ---
:1970 Author Organization [employer] Address [address] [address] Care Team Providers Name Role Phone Gagandeep Hinojosa MD Primary Care Provider Reason for Referral Consult/Transfer Care (Routine) - Closed Specialty Diagnoses / Procedures Referred By Contact Refer red To Contact Diagnoses Controlled type 2 diabetes with neuropathy (HRC) Glenys Alcantar MBBS [address] [place], [place] [address] Referral ID Status Reason Start Date Expiration Date Visits Requ ested Visits Authorized [id number] Closed 07/19/2016 10/18/2017 1 1 Scheduling Instructions Your provider has recommended an appoint ment with [facility]. You may call [phone] to schedule yo appointment. If you do [...] of insulin (HRC) Gagandeep Hinojosa MD 14[address] [place] [address] Referral ID Status Reason Start Date Expiration Date Visits Requ ested Visits Authorized [id number] Closed 06/21/2016 09/20/2017 1 1 Encounter Details Date Type Department Care Team Description 07/19/2016 Office Visit [facility] [address] Glenys Alcantar ar I disorder ([facility]) (Primary Dx); Endocrinology REINA Belcher Controlled type 2 diabetes with neuropat hy ([facility]); [address] Yady French [address] Atheroscl erosis of coronary artery, angina presence unspecified, unspecified vessel or lesion type, unspecified whether [place] or transplanted heart ([facility]); [address] Hyperlipidemia with target LDL less than 70; [facility], [facility], [place] [address] [phone] Social History Tobacco Use Types Packs/Day Years [...] - 07/19/2016 2:32 PM CDT [facility] Department of Endocrinology, Diabetes and Metabolism [...] takes lisinopril 10 mg daily BP today [id number]. He takes atorvastatin 80 mg daily, he has history of CAD s/p ME and PCI in 2011. ROS: A 3 [...] and exercise, I will refer him to [facility] for further teaching. We will try to [...] >50% was spent on counseling. REINA Barrera Backfiller documented in this encounter Plan of Treatment [...] Controlled type 2 diabetes with neuropat hy ([facility]) Type II or unspecified type diabetes jasen litus with neurological manifestations, not stated as uncontrolled Atherosclerosis of coronary artery, dequan na presence unspecified, unspecified vessel or lesion type, unspecified whether savannah ve or transplanted heart (HR) Hyperlipidemia with target LDL less than 70 (HRC) Other and unspecified hyperlipidemia Microalbuminuria Proteinuria documented in this encounter Care Teams Qc Chemist Relationship Specialty Start Date End Date Gagandeep Hinojosa MD PCP - General 05/17/12 1415 [facility] [place] [address] Vane Zarate Psychiatrist Psychiatry 03/22/12 documented as of this encounter
--- OUTSIDE RECORDS SUMMARY | 2022-02-14 10:44 | XMS_ITS | Encounter Summary ---
:1970 Author Organization [employer] Address [address] [address] Care Team Providers Name Role Phone Gagandeep Hinojosa MD Primary Care Provider Reason for Visit Reason Onset Date Comments [facility] Phone Visit 07/14/2016 Encounter Details Date Type Department Care Team Description 07/14/2016 Care Coord Phone [facility] Deborah Rodrigues, [facility] Phone Visit [facility] 1415 [facility] . [address] [place] [address] [place] [address] [phone] Social History Tobacco Use Types Packs/Day Years Used Date Smoking Tobacco: Every Day Cigarettes 0 25 Smokeless Tobacco: Former Qu it: 10/25/2012 Comments: Smoking History Packs/day: Alcohol Use Standard Drinks/Week Comments No 0 (1 standard drink = 0.6 oz pure Alcoho lic Drinks/day: Amount:0; alcohol) Freq:Never; Sex Assigned at Date Recorded Not on file documented as of this encounter Progress Notes Deborah Rodrigues, [facility] - 07/14/2016 1:30 PM CDT Singing Telegram Performer - Phone Call Contact with: Rustam Reason for call: Care Coordination Discussion/actions: Got an appointment scheduled with KARLEY, Dr. Gladys Longoria, on 07/20 at 10:30. Called Rustam and gave him this information. He agreed to be at this appointment and said that he had transportation. He will call [facility] and check-in next week to discuss how it went. Rustam reports everything else is going fine. Denied any thoughts of suicide. Shared plan: -Therapy appointment 07/20 at 10:30. -[facility] follow-up as needed. Pt verbalized understanding and agreed with plan of care and follow up. documented in this encounter Plan of Treatment Not on filedocumented as of this encounter Visit Diagnoses Diagnosis [facility], active care coordinati on - Primary documented in this encounter Care Teams Power Crane Operator Relationship Specialty Start Date End Date Gagandeep Hinojosa MD PCP - General 05/17/12 [facility] [place] [address] Vane Zarate Psychiatrist Psychiatry 03/22/12 documented as of this encounter
--- OUTSIDE RECORDS SUMMARY | 2022-02-14 10:44 | XMS_ITS | Encounter Summary ---
:1970 Author Organization [employer] Address [address] [address] Care Team Providers Name Role Phone Gagandeep Hinojosa MD Primary Care Provider Reason for Visit Reason Onset Date Comments UPDATE 08/19/2016 Encounter Details Date Type Department Care Team Description 08/19/2016 Telephone [facility] [address] Sabina Alcantar MBBS UPDATE Endocrinology [address] [place], [place] [address] [place] [address] [phone] Social History Tobacco Use Types Packs/Day Years [...] of Novolin R breakfast and dinner. 20 [phone] documented in this encounter Plan of Treatment Not on filedocumented as of this encounter Visit Diagnoses Not on filedocumented in this encounter Care Teams Medical Authorization Specialist Relationship Specialty Start Date End Date Gagandeep Hinojosa MD PCP - General 05/17/12 [address] [place] [address] Vane Zarate Psychiatrist Psychiatry 03/22/12 documented as of this encounter
--- OUTSIDE RECORDS SUMMARY | 2022-02-14 10:44 | XMS_ITS | Encounter Summary ---
:1970 Author Organization [facility] Address [address] [place] [address] Care Team Providers Name Role Phone Gagandeep Hinojosa MD Primary Care Provider Reason for Visit Reason Onset Date Comments [facility] Phone Visit 06/17/2016 Encounter Details Date Type Department Care Team Description 06/17/2016 Care Coord Phone Judy Luke R N [facility] Phone Visit Medicine 1415 [facility] 1415 [facility] [place] [address] [place] [address] [phone] Social History Tobacco Use Types Packs/Day Years [...] RN - 06/17/2016 9:31 AM CST RN Director Of Gift Planning - Diabetes Follow-Up Current diabetes medication regimen: [...] current insulin regimen. Plans to go to [facility] and pursue inpatient admission for mental health. Phone follow up to review DM options once mental health is stable. Call if sx of hypoglycemia or glucose readings < 70 mg/dL. Rustam verbalized understanding and agreed with plan of care and follow up. SHEET METAL INSTALLER HELPER documented in this encounter Plan of Treatment Not on filedocumented as of this encounter Visit Diagnoses Diagnosis Health retirement, active care coordinati on - Primary Bipolar I disorder (HRC) Bipolar I disorder, most recent episode (or current) unspecified Uncontrolled type 2 diabetes mellitus wi th hyperglycemia, with long-term current use of insulin (HRC) documented in this encounter Care Teams Gas Combustion Engineer Relationship Specialty Start Date End Date Gagandeep Hinojosa MD PCP - General 05/17/12 [address] [place] [address] Vane Zarate Psychiatrist Psychiatry 03/22/12 documented as of this encounter
--- OUTSIDE RECORDS SUMMARY | 2022-02-14 10:44 | XMS_ITS | Encounter Summary ---
:1970 Author Organization [employer] Address [address] [place] [address] Care Team Providers Name Role Phone Gagandeep Hinojosa MD Primary Care Provider Reason for Visit Reason Onset Date Comments High Blood Sugar 07/07/2016 HYPOGLYCEMIA 07/08/2016 Encounter Details Date Type Department Care Team Description 07/07/2016 Nurse Triage [facility] Gagandeep Hinojosa High Blo od Sugar; Romario Rubio MD HYPOGLYCEMIA [address] [place] [address] Ave [phone] [place], [place] [address] Social History Tobacco Use [...] PM CDT Protocol: DIABETES - LOW BLOOD [id number] Affirmative: Low blood sugar symptoms persist > [...] This was right before he got up. [place] dizzy but no sweating. Drank orange juice [...] on filedocumented in this encounter Care Teams Acute Care Certified Nursing Assistant Relationship Specialty Start Date End Date Gagandeep Hinojosa MD PCP - General 05/17/12 [address] [place] [address] Vane Zarate Psychiatrist Psychiatry 03/22/12 documented as of this encounter
--- OUTSIDE RECORDS SUMMARY | 2022-02-14 10:44 | XMS_ITS | Encounter Summary ---
:1970 Author Organization [employer] Address [address], [place] [address] Care Team Providers Name Role Phone Gagandeep Hinojosa MD Primary Care Provider Reason for Visit Reason Onset Date Comments [facility] Phone Visit 06/22/2016 Encounter Details Date Type Department Care Team Description 06/22/2016 Care Coord Phone [facility] Deborah Rodrigues, [facility] Phone Visit [facility] 1415 [facility] . [address] [place] [address] [place] [address] [phone] Social History Tobacco Use Types Packs/Day Years [...] this encounter Progress Notes Deborah Rodrigues, [facility] - 06/22/2016 2:30 PM CST Product Support Technician - Phone Call Contact with: Rustam Reason [...] seems he continues to have high anxiety. Rsutam agreed that this would be a good plan, and he would really try not to call prior to that phone appointment. We agreed together thatI would call him on 06/24 to check-in. Rustam denied any other concerns at this time. Shared plan: -[facility] phone appointment 06/24. Pt verbalized understanding and agreed with plan of care and follow up. RITY CHECKER Deborah Rodrigues LICSW - 06/22/2016 12:00 PM CST Product Support Technician - Phone Call Contact with: Rustam Reason [...] that he was going to take an [id number] sleeping medication, as his doctor had previously [...] with plan of care and follow up. RITY CHECKER Deborah Rodrigues LICSW - 06/22/2016 10:30 AM CST Product Support Technician - Phone Call Contact with: Rustam Reason [...] with plan of care and follow up. RITY CHECKER Deborah Rodrigues LICSW - 06/22/2016 10:00 AM CST Contacted Rustam, per request from RN Product Support Technician, Judy Pittman. Left a detailed [place]. [place] [phone] if he calls the clinic. RITY CHECKER documented in this encounter Plan of Treatment Not on filedocumented as of this encounter Visit Diagnoses Diagnosis Health correction, active care coordinati on - Primary documented in this encounter Care Teams Martial Arts Instructor Relationship Specialty Start Date End Date Gagandeep Hinojosa MD PCP - General 05/17/12 1415 [facility] [place] [address] Vane Zarate Psychiatrist Psychiatry 03/22/12 documented as of this encounter
--- OUTSIDE RECORDS SUMMARY | 2022-02-14 10:44 | XMS_ITS | Encounter Summary ---
:1970 Author Organization [employer] Address [address], [place] [address] Care Team Providers Name Role Phone Gagandeep Hinojosa MD Primary Care Provider Reason for Visit Reason Onset Date Comments DIABETES EDUCATION 08/06/2016 Encounter Details Date Type Department Care Team Description 08/06/2016 Telephone [facility] [address] Al[address]ar DI ABETES EDUCATION Endocrinology MBBS [address] [facility] [address] [place], [place] [address] [address] [place], [place] [phone] [id number] Social History Tobacco Use Types Packs/Day Years Used Date Smoking Tobacco: Every Day Cigarettes 0 25 Smokeless Tobacco: Former Qu it: 10/25/2012 Comments: Smoking History Packs/day: Alcohol Use Standard Drinks/Week Comments No 0 (1 standard drink = 0.6 oz pure Alcoho lic Drinks/day: Amount:0; alcohol) Freq:Never; Sex Assigned at Date Recorded Not on file documented as of this encounter Nursing Notes Patricia Ramos RN - 08/09/2016 11:18 AM CDT Pt. Called back and was informed of below. States understanding. No additional questions at this time. Patricia Ramos RN - 08/09/2016 9:05 AM CDT Left the pt. A message to call back. See below. Glenys Alcantar MBBS - 08/09/2016 7:56 AM CDT Increase Tresiba from 70 to 75 units daily. Report numbers in 1 week. Cordelia Chowdary RN - 08/06/2016 3:32 PM CDT Pt calling to report his BG levels in 2 wks as advised. (Am fasting, before lunch, half hour before dinner, bedtime) 07/23/16: 141, 221, 85, 75 07/24/16: 108, 140, 175, 58 07/25/16 143, 184, 275, (after dinner) 249, 07/26/16: 137, 114, 206, 136 07/27/16: 105, 210, 250, 209 07/28/16: 157, 213, 191, 181 07/29/16: 144, 267, 210, 167 07/30/16: 161, (gummy bears) 335, 231, 139 07/31/16: 252, 271, 265, 178 08/01/16: 240, 198, 264, 211 08/02/16: 214, 364, 310, 419 08/03/16: 96, 153, 210, 234 08/04/16: 185, 173, 168, 154 08/05/16: 149, 274, 392, 220 08/06/16: 167, 210 Please advise possible insulin increase. Ok to leave a msg. documented in this encounter Plan of Treatment Not on filedocumented as of this encounter Visit Diagnoses Not on filedocumented in this encounter Care Teams Supervisor Filter Assembly Relationship Specialty Start Date End Date Gagandeep Hinojosa MD PCP - General 05/17/12 [facility] [place] Gerber [address] Vane Zarate Psychiatrist Psychiatry 11/28/12 documented as of this encounter
--- OUTSIDE RECORDS SUMMARY | 2022-02-14 10:44 | XMS_ITS | Encounter Summary ---
:1970 Author Organization [facility] Address [address] [place] [address] Care Team Providers Name Role Phone Gagandeep Hinojosa MD Primary Care Provider Reason for Visit Reason Onset Date Comments [facility] Phone Visit 06/22/2016 Encounter Details Date Type Department Care Team Description 06/22/2016 Care Coord Phone Judy Luke R N [facility] Phone Visit Medicine 1415 [facility] 1415 [place] [address] [place] [address] [phone] Social History Tobacco Use Types Packs/Day Years [...] RN - 06/22/2016 10:32 AM CST RN Fiscal Accounting Clerk - Diabetes Follow-Up Current diabetes medication regimen: [...] dx Bipolar Disorder. He has called the [facility] Crisis line and Lesly Rodrigues [facility] Fiscal Accounting Clerk about increased anxiety today. I reviewed the [...] plan of care and follow up. OMER SERVICE CORRESPONDENCE CLERK documented in this encounter Plan of Treatment Not on filedocumented as of this encounter Visit Diagnoses Diagnosis Health alf, active care coordinati on - Primary Bipolar I disorder (HRC) Bipolar I disorder, most recent episode (or current) unspecified documented in this encounter Care Teams Solvent Station Attendant Relationship Specialty Start Date End Date Gagandeep Hinojosa MD PCP - General 05/17/12 0944 [facility] [place] Gerber [address] Vane Zarate Psychiatrist Psychiatry 03/22/12 documented as of this encounter
--- OUTSIDE RECORDS SUMMARY | 2022-02-14 10:44 | XMS_ITS | Encounter Summary ---
:1970 Author Organization [employer] Address [address] [place] [address] Care Team Providers Name Role Phone Gagandeep Hinojosa MD Primary Care Provider Reason for Visit Reason Onset Date Comments [facility] Phone Visit 07/21/2016 Encounter Details Date Type Department Care Team Description 07/21/2016 Care Coord Phone [facility] Deborah Rodrigues, [facility] Phone Visit [facility] 1415 [facility] . [address] [place] [address] [place] [address] [phone] Social History Tobacco Use Types Packs/Day Years Used Date Smoking Tobacco: Every Day Cigarettes 0 25 Smokeless Tobacco: Former Qu it: 10/25/2012 Comments: Smoking History Packs/day: Alcohol Use Standard Drinks/Week Comments No 0 (1 standard drink = 0.6 oz pure Alcoho lic Drinks/day: Amount:0; alcohol) Freq:Never; Sex Assigned at Date Recorded Not on file documented as of this encounter Progress Notes Deborah Rodrigues, [facility] - 07/21/2016 3:30 PM CDT [employer] Director - Phone Call Contact with: Rustam Reason [...] in one week. Shared plan: -[facility] phone follow-up in one week. Pt verbalized understanding and agreed with plan of care and follow up. documented in this encounter Plan of Treatment Not on filedocumented as of this encounter Visit Diagnoses Diagnosis Health chcf, active care coordinati on - Primary documented in this encounter Care Teams Fertilizer Processing Supervisor Relationship Specialty Start Date End Date Gagandeep Hinojosa MD PCP - General 05/17/12 [address] [place] Hernandez [id number] Vane Zarate Psychiatrist Psychiatry 03/22/12 documented as of this encounter
--- OUTSIDE RECORDS SUMMARY | 2022-02-14 10:44 | XMS_ITS | Encounter Summary ---
:1970 Author Organization [employer] Address [address], [place] [address] Care Team Providers Name Role Phone Gagandeep Hinojosa MD Primary Care Provider Reason for Visit Reason Onset Date Comments Medication Request 06/09/2016 Encounter Details Date Type Department Care Team Description 06/09/2016 [facility] Gagandeep Hinojosa MD Medication Request 1415 [facility] . 14[address] [facility] [place] [address] [place] [address] [phone] (Wo rk) Social History Tobacco Use Types [...] Test Strips ?? One Touch Delica Lancets TER Piper Mederos - 06/09/2016 10:58 AM CST Pt calling back with diabetes supply information. -One Touch Ultra II Meter -One Touch Ultra Touch Test Strips -One Touch Delica Lancets TER documented in this encounter Plan of Treatment Not on filedocumented as of this encounter Visit Diagnoses Diagnosis Uncontrolled type 2 diabetes mellitus wi th diabetic polyneuropathy, with long-term current use of insulin - Primary documented in this encounter Care Teams Communication Assistant Relationship Specialty Start Date End Date Gagandeep Hinojosa MD PCP - General 05/17/12 1415 [facility] [address] Vane Zarate Psychiatrsamantha Psychiatry 03/22/12 documented as of this encounter
--- OUTSIDE RECORDS SUMMARY | 2022-02-14 10:44 | XMS_ITS | Encounter Summary ---
:1970 Author Organization [employer] Address [address] [place] [address] Care Team Providers Name Role Phone Gagandeep Hinojosa MD Primary Care Provider Encounter Details Date Type Department Care Team Description 09/07/2016 Lab Visit [facility] Uncontrolled type 2 diabetes mellitus with diabetic polyneuropathy, with long- term current use of insulin (HRC) [E11.42, Z79.4, E11.65]; [address] Hyperlipidemia LDL goal < 70 ; [place] [address] Essential hypertension [phone] Social History Tobacco Use Types Packs/Day Years [...] (ABNORMAL) Microalb/Creat Ratio (09/07/2016 10:26 AM CDT) [facility] Method Time Signature Microalbumin 102.5 mg/L PN SOFT Urine U Creat Random 263 mg/dL PN SOFT Microalbumin/Crea 39.0 (H) 0.0 - PN SOFT tinine Ratio 30.0 Specimen Anatomical Collection Method Collection Time Receive d Time (Source) Location / / Volume Laterality Urine specimen 09/07/2016 10:26 7 2:29 (specimen) AM CDT PM CDT Narrative PN SOFT - 09/07/2016 3:26 PM CDT Performed at [facility], [address] [place] [address] CLIA number [id number] Gagandeep Hinojosa MD LAB_1 Performing Organization Address City/State/ZIP Code Phon e Number PN SOFT [address] [place], [place] [address] (ABNORMAL) Creatinine / GFR (09/07/2016 10:25 AM [...] - 09/07/2016 3:04 PM CDT Performed at [facility], [address] [place] [address] CLIA number [id number] Gagandeep Hinojosa MD LAB_1 Performing Organization Address [facility] Phon e Number PN SOFT [address] [place] [address] (ABNORMAL) Electrolyte Panel (09/07/2016 10:25 AM CDT) [...] - 09/07/2016 3:04 PM CDT Performed at [facility], [address] [place], [place] [address] CLIA number [id number] Gagandeep Hinojosa MD LAB_1 Performing Organization Address [facility] Phon e Number PN SOFT [address] [place] [address] (ABNORMAL) Lipid Panel and Direct LDL(If Needed) [...] - 09/07/2016 3:04 PM CDT Performed at [facility], [address] [place] [address] CLIA number [id number] Gagandeep Hinojosa MD LAB_1 Performing Organization Address [facility] Phon e Number PN SOFT [address] [place] [address] (ABNORMAL) POCT Glycosylated Hemoglobin (HB A1C) (09/07/2016 10:25 AM CDT) [facility] gist Method Time Signature Glycosolated HGB [...] - 09/07/2016 10:35 AM CDT Performed at [facility], [address] [place] [address] CLIA number [id number] Gagandeep Hinojosa MD LAB_1 Performing Organization Address [facility] Phon e Number PN SOFT [address] [place] [address] Extra Serum Separator Tube (yellow) (09/07/2016 10:20 AM CDT) P athologist Signature Extra SST Top Drawn PN SOFT Drawn Specimen (Source) Anatomical Location Collection Method / Collectio n Time Received Time / Laterality Volume Narrative PN SOFT - 09/07/2016 10:20 AM CDT Performed at [facility], [address] [place] [address] CLIA number [id number] Gagandeep Hinojosa MD LAB_1 Performing Organization Address [facility] Phon e Number PN SOFT [address] [place] [address] documented in this encounter Visit Diagnoses Diagnosis Uncontrolled type 2 diabetes mellitus wi th diabetic polyneuropathy, with long-term current use of insulin (HRC) [E11.42, Z7 9.4, E11.65] Hyperlipidemia LDL goal < 70 Other and unspecified hyperlipidemia Essential hypertension (HRC) Unspecified essential hypertension documented in this encounter Care Teams Reporter Anchor Relationship Specialty Start Date End Date Gagandeep Hinojosa MD PCP - General 05/17/12 1415 [facility] KATIANA Gerber [address] Vane Zarate Psychiatrsamantha Psychiatry 03/22/12 documented as of this encounter
--- OUTSIDE RECORDS SUMMARY | 2022-02-14 10:44 | XMS_ITS | Encounter Summary ---
:1970 Author Organization [employer] Address [address] [place] [address] Care Team Providers Name Role Phone Gagandeep Hinojosa MD Primary Care Provider Reason for Visit Reason Onset Date Comments [facility] Phone Visit 06/30/2016 Encounter Details Date Type Department Care Team Description 06/30/2016 Care Coord Phone [facility] Deborah Rodrigues, [facility] Phone Visit [facility] 1415 [facility] . [address] [place] [address] [place] [address] [phone] Social History Tobacco Use Types Packs/Day Years Used Date Smoking Tobacco: Every Day Cigarettes 0 25 Smokeless Tobacco: Former Qu it: 10/25/2012 Comments: Smoking History Packs/day: Alcohol Use Standard Drinks/Week Comments No 0 (1 standard drink = 0.6 oz pure Alcoho lic Drinks/day: Amount:0; alcohol) Freq:Never; Sex Assigned at Date Recorded Not on file documented as of this encounter Progress Notes Deborah Rodrigues, [facility] - 06/30/2016 3:45 PM CST Network Management Specialist - Phone Call Contact with: Julius Reason [...] admitted. They did set him up with [facility] appointment, which he is planning [...] will call in one week. Shared plan: -[facility] phone follow-up in one week. Pt verbalized understanding and agreed with plan of care and follow up. OR WIND ENERGY CONSULTANT documented in this encounter Plan of Treatment Not on filedocumented as of this encounter Visit Diagnoses Diagnosis Health senior living, active care coordinati on - Primary documented in this encounter Care Teams Centrifugal Supervisor Relationship Specialty Start Date End Date Gagandeep Hinojosa MD PCP - General 05/17/12 [facility]5 [facility] [place] Gerber [address] Vane Zarate Psychiatrist Psychiatry 03/22/12 documented as of this encounter
--- OUTSIDE RECORDS SUMMARY | 2022-02-14 10:44 | XMS_ITS | Encounter Summary ---
:1970 Author Organization [employer] Address [address], [place] [address] Care Team Providers Name Role Phone Gagandeep Hinojosa MD Primary Care Provider Reason for Visit Reason Onset Date Comments FOLLOW-UP,DIABETES 07/18/2016 Encounter Details Date Type Department Care Team Description 07/18/2016 Nurse Triage [facility] Gagandeep Hinojosa, OCTAVIO W-UP,DIABETES Medicine 1415 [facility] . [address] [place] [address] [place] [address] [phone] (Wo rk) Social History Tobacco Use Types [...] encounter Nursing Notes Judy Pittman RN - 07/19/2016 10:45 AM CDT I spoke with Rustam. He uses a One Touch Ultra and needs to test QID. Sent new Rx specifying testing frequency and use of mealtime insulin. Rustam has his endocrinology appt later today. Yoana Riley RN - 07/18/2016 6:42 PM CDT Reason for Call: Medication Problem. and Requests call from clinician. Next Steps: Document further recommendations and route to appropriate person or pool. Caller IS expecting a call back from Care Team. Additional Information: Cannot test his BG QID and questioning which times he can skip? States he cannot get enough test strips from insurance to be able to test QID. Protocol: DIABETES - LOW BLOOD [id number](07/04) Affirmative: Low blood sugar prevention, questions about Disposition of Home Care suggested. Patient calling. States he is having an insurance issue with covering his diabetic test strips. States he is supposed to be taking his BG QID but cannot do this. Only has 25 strips left that he bought and questioning if he was to take any BG monitoring out, which ones would be ok to skip? States he takes his BG in the morning when he get up, before meals and bed time. Denies taking any sliding scale insulin with meals. PNNL advised cannot advised to not test his BG. Should be testing as prescribed. Will send to PCP for follow up and advice. Denies other questions or concerns at this time. documented in this encounter Plan of Treatment Not on filedocumented as of this encounter Visit Diagnoses Diagnosis Uncontrolled type 2 diabetes mellitus wi th microalbuminuria, with long-term current use of insulin - Primary documented in this encounter Care Teams Infantry Indirect Fire Crewmember Relationship Specialty Start Date End Date Gagandeep Hinojosa MD PCP - General 05/17/[address] [place] [address] Vane Zarate Psychiatrist Psychiatry 03/22/12 documented as of this encounter
--- OUTSIDE RECORDS SUMMARY | 2022-02-14 10:44 | XMS_ITS | Encounter Summary ---
:1970 Author Organization [email or web address] Address [address] [place] [address] Care Team Providers Name Role Phone Gagandeep Hinojosa MD Primary Care Provider Reason for Visit Reason Onset Date Comments [facility] Phone Visit 07/13/2016 Encounter Details Date Type Department Care Team Description 07/13/2016 Care Coord Phone [place] R N [facility] Phone Visit Medicine 1415 [facility] 1415 [facility] [place] [address] [place] [address] [phone] Social History Tobacco Use Types Packs/Day Years [...] encounter Progress Notes Judy Pittman RN - 07/13/2016 12:57 PM CDT RN Abrading Machine Tender - Diabetes Follow-Up Current diabetes medication regimen: Tresiba 72 units in AM ?? Novolin R 72 BID Metformin 500 mg BID (unable to tolerate full therapeutic dose secondary to GI side effects) CURRENT GLUCOSE PATTERNS: Rustam does not have access to his record book, but reports his BG range for the past week has been 60-211. Hypoglycemia (previous two weeks): twice Assessment/education: Rustam called yesterday to report another episode of hypoglycemia last week. He followed up with Dr Hinojosa and his insulin was adjusted. He came in to see ERLIN Salas today and requested to speak with me as well. Rustam reports he had another episode of hypoglycemia yesterday evening, his BG was 60 and then 73 this morning. He drank regular soda to correct his low. I reminded Rustam how to use Routine 15, noting he should have access to CHO at all times. I recommended carrying hard candy. Rustam also states he is having trouble with testing his BG secondary to new onset hand tremors. I reviewed how to use the sides of his fingers to test, keeping the meter flat on the table, and using his other hand to steady his finger/blood up to the test strip. Rustam is scheduled to see endocrinology next week. He inquired about DM education. It is highly likely that endocrinology will want Rustam to follow up with the [facility], but Rustam is concerned about the location of the [facility]. He prefers to stay in [place]. Therefore, I recommended Rustam inform the social media project manager that Dr Hinojosa will refer him to [facility] for DM education. Rustam agrees. Teach back method used to verify understanding. Shared plan: Per DM SO, decrease Tresiba to 70 units in AM. Per DM SO, decrease Novolin R to 70 units BID. SMBG qid as directed, use the side of the finger to test. Endocrinology follow up scheduled 07/19/16. Referral to [facility] for DM Education. Phone follow up next week, earlier if there is another episode of hypoglycemia. Call if sx of hypoglycemia or glucose readings < 70 mg/dL. Rustam verbalized understanding and agreed with plan of care and follow up. documented in this encounter Plan of Treatment Not on filedocumented as of this encounter Visit Diagnoses Diagnosis Health senior care, active care coordinati on - Primary Uncontrolled type 2 diabetes mellitus wi th hyperglycemia, with long-term current use of insulin (HRC) documented in this encounter Care Teams Thread Puller Relationship Specialty Start Date End Date Gagandeep Hinojosa MD PCP - General 05/17/12 [address] [place] [address] Vane Zarate Psychiatrist Psychiatry 03/22/12 documented as of this encounter
--- OUTSIDE RECORDS SUMMARY | 2022-02-14 10:44 | XMS_ITS | Encounter Summary ---
:1970 Author Organization [employer] Address [address] [address] Care Team Providers Name Role Phone Gagandeep Hinojosa MD Primary Care Provider Reason for Visit Reason Onset Date Comments RESULTS, TEST 10/21/2016 Encounter Details Date Type Department Care Team Description 10/21/2016 Telephone [facility] Gagandeep Hinojosa MD RESULTS, TEST 1415 [facility] . [address] [place] [address] [place] [address] [phone] (Wo rk) Social History Tobacco Use Types [...] When and where was test done? 10/13/16 [place] Who ordered the test? Gagandeep Hinojosa MD documented in this encounter Plan of Treatment Not on filedocumented as of this encounter Visit Diagnoses Not on filedocumented in this encounter Care Teams Hire Car Driver Relationship Specialty Start Date End Date Gagandeep Hinojosa MD PCP - General 05/17/12 1415 [facility] [place] Gerber [address] Vane Zarate Psychiatrist Psychiatry 03/22/12 documented as of this encounter
--- OUTSIDE RECORDS SUMMARY | 2022-02-14 10:44 | XMS_ITS | Encounter Summary ---
:1970 Author Organization [employer] [facility] Address [address] [place] [address] Care Team Providers Name Role Phone Gagandeep Michaud MD Primary Care Provider Reason for Visit Reason Comments Refill NOVOLIN R 100 UNIT/ML inject ion [Pharmacy Med Name: NOVOLIN R 100UNIT/ML INJ] Encounter Details Date Type Department Care Team Description 12/03/2016 Refill [facility] Gagandeep Michaud, Refil l (NOVOLIN R 100 Medicine MD UNIT/ML injection [address] [Pharmacy Med Name: KAT[place]NA Vigil [address] [place] VIGIL [address] NOVOLIN R 100UNIT/ML [phone] (Wo rk) INJ]) Social History Tobacco Use [...] (Sent to [facility]) Powered by [employer], Reference: [id number], 12/03/2016 2:46:31 PM CDT, Pool: MANUEL MOORE ([id number]) documented in this encounter Plan of Treatment Not on filedocumented as of this encounter Visit Diagnoses Diagnosis Uncontrolled type 2 diabetes mellitus wi thout complication, with long-term current use of insulin documented in this encounter Care Teams Manager Audio Relationship Specialty Start Date End Date Gagandeep Michaud MD PCP - General 05/17/12 1415 [facility] K[place] Gerber [address] Vaen Zarate Psychiatrsamantha Psychiatry 03/22/12 documented as of this encounter
--- OUTSIDE RECORDS SUMMARY | 2022-02-14 10:44 | XMS_ITS | Encounter Summary ---
:1970 Author Organization [employer] Address [address] [place] [address] Care Team Providers Name Role Phone Gagandeep Hinojosa MD Primary Care Provider Reason for Visit Reason Comments Follow Up ER [facility] 07-08-16 Hypoglycemia Encounter Details Date Type Department Care Team Description 07/09/2016 Office Visit Gagandeep Storm [facility] emia (Primary Dx); Romario Rubio MD Bipolar I disorder ([facility]); [address] 1415 [facility] Uncontrolled type 2 diabetes mellitus without complication, with long-term current use of insulin ([facility]) [place] [address] [address] [phone] [place] [address] Social History Tobacco Use [...] 07/09/2016 10:00 AM CDT ICD-10-CM 1. Hypoglycemia ([facility]) E16.2 2. Bipolar I disorder ([facility]) F31.9 3. Uncontrolled type 2 diabetes mellitus without complication, with long-term current use of insulin([facility]) E11.65 Z79.4 CHIEF COMPLAINT: Chief Complaint Patient presents with ??? Follow Up ER [facility] 07-08-16 Hypoglycemia SUBJECTIVE : Timur Krishnamurthy is [...] List Diagnosis Date Noted ??? Tobacco abuse ([facility]) 02/24/2016 ??? Tinea versicolor 07/18/2015 ??? Diabetic eye exam ([facility]) 12/12/2013 Overview Note: Eye exam done at [facility] on 12/12/13. Mild diabetic retinopathy in right eye. ??? Tobacco use disorder ([facility]) 10/26/2012 ??? ACS (acute coronary syndrome) ([facility]) 10/25/2012 ??? Anemia 05/02/2012 ??? Health prison, active care coordination 03/22/2012 Overview Note: Personal Loan Specialist: JOSETTE Yip [phone] Care coordination focus: T2DM, financial resources Living situation: lives with spouse Important notes: SSDI, significant insulin resistance, uses Relion insulin, commonly reaches Medicare Coverage Gap See care plan under Chart Review > Misc Reports > AMB [facility] CARE PLAN REPORT ??? Microalbuminuria 02/04/2012 ??? NE, old ([facility]) 09/16/2011 ??? History of PTCA 09/16/2011 ??? Obesity, Class I, BMI 30-34.9 ([facility]) 09/16/2011 Overview Note: Body mass index is 31.16 kg/(m^2). ??? Hyperlipidemia with target LDL less than 70 ([facility]) 06/08/2011 ??? ASHD (arteriosclerotic heart disease) ([facility]) 05/04/2011 ??? Erectile dysfunction 01/22/2011 Overview Note: side effect Risperdal ??? Type 2 diabetes mellitus, uncontrolled ([facility]) 12/11/2010 ??? Dermatophytosis of body 09/04/2010 Class: Historical ??? Coronary atherosclerosis ([facility]) 12/22/2009 Overview Note: LW Modifier: mod RCA, negative nuclear stress test ??? Nonspecific abnormal results of liver function study 12/22/2009 ??? Bipolar I disorder ([facility]) 09/15/2005 Overview Note: LW Onset: [id number] FAMILY HISTORY OR SICK CONTACTS : No [...] insulin documented in this encounter Care Teams Gerontological Nurse Practitioner Relationship Specialty Start Date End Date Gagandeep Hinojosa MD PCP - General 05/17/[address] [place], [place] [address]elv[place] [address] Vane Zarate Psychiatrist Psychiatry 03/22/12 documented as of this encounter
--- OUTSIDE RECORDS SUMMARY | 2022-02-14 10:44 | XMS_ITS | Encounter Summary ---
:1970 Author Organization [employer] Address [address] [address] Care Team Providers Name Role Phone Gagandeep Hinojosa MD Primary Care Provider Reason for Visit Reason Comments Procedure Left lower extremity EMG Procedure/Equipment (Routine) - Closed Specialty Diagnoses / Procedures Referred By Contact Refer red To Contact Diagnoses Paresthesia of lower limb Gagandeep Hinojosa MD [address] [place] [address] Referral ID Status Reason Start Date Expiration Date Visits Requ ested Visits Authorized [id number] Closed 09/07/2016 12/07/2017 1 1 Encounter Details Date Type Department Care Team Description 10/13/2016 Procedure Visit Verito Mackenzie Procedure (L eft Rehabilitative Ladi Rubio MD lower extremity Medicine [address] [place] [address] Dr EMG) [address] [place] [address] [phone] Social History Tobacco Use Types Packs/Day Years [...] Exam Date: 10/13/2016 Name: Timur Krishnamurthy MR#: [id number] Gender: Male Date of : 1970 Age: [...] ([facility]C) documented in this encounter Care Teams Instructor Nurse Relationship Specialty Start Date End Date Gagandeep Hinojosa MD PCP - General 05/17/12 [address] [facility] [place] [address] Vane Zarate Psychiatrist Psychiatry 03/22/12 documented as of this encounter
--- OUTSIDE RECORDS SUMMARY | 2022-02-14 10:44 | XMS_ITS | Encounter Summary ---
:1970 Author Organization [employer] Address [address], [place] [address] Care Team Providers Name Role Phone Gagandeep Hinojosa MD Primary Care Provider Reason for Referral Procedure/Equipment (Routine) - Closed Specialty Diagnoses / Procedures Referred By Contact Refer red To Contact Diagnoses Paresthesia of lower limb Gagandeep Hinojosa MD [address] [place] [address] Referral ID Status Reason Start Date Expiration Date Visits Requ ested Visits Authorized [id number] Closed 09/07/2016 12/07/2017 1 1 Scheduling Instructions Your provider has recommended an appoint ment with [facility]. You may call [phone] to sche dule your appointment. If you do not schedule an appointment within the next 1 to 3 sine days, we will call you to help arrange your appointment. We suggest you call [employer] about your coverage and benefits for this appointme nt. Reason for Visit Reason Comments Diabetes LEG PAIN 1 month, left Encounter Details Date Type Department Care Team Description 09/07/2016 Office Visit Gagandeep Storm type 2 diabetes mellitus without complication, with long-term current use of insulin (HRC) [E11.65,Z79.4] (Primary Dx); Romario Rubio MD Paresthesia of lower limb; [address] [place] 1415 [facility] Type 2 d iabetes mellitus without complication, with long-term current use of insulin (HRC) [E11.9, Z79.4]; Ave. 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); [place] [address] [place], [place] Essential hypertension; [phone] Hyperlipidemia, unspecified hyperlipidem ia type ([facility]) [E78.5]; [phone] Tobacco use dis order (Work) Social History [...] insulin (HRC) [E11.9, Z79.4] E11.9 Z79.4 4. 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 [...] (ABNORMAL) Microalb/Creat Ratio (02/16/2017 11:01 AM CDT) [facility] [employer] Method Time Signature Microalbumin 124.6 mg/L PN SOFT Urine U Creat Random 78 mg/dL PN SOFT Microalbumin/Crea 159.7 (H) 0.0 - PN SOFT tinine Ratio 30.0 Specimen Anatomical Collection Method Collection Time Receive d Time (Source) Location / / Volume Laterality Urine specimen 02/16/2017 11:01 7 2:41 (specimen) AM CDT PM CDT Narrative PN SOFT - 02/16/2017 3:37 PM CDT Performed at [facility], [address] [place] [address] CLIA number [id number] Gagandeep Hinojosa MD LAB_1 Performing Organization Address City/State/ZIP Code Phon e Number PN SOFT [address] [place] [address] (ABNORMAL) Lipid Panel and Direct LDL(If Needed) (02/16/2017 10:54 AM CDT) [facility] [employer] Method Time Signature Cholesterol 179 0 - [...] - 02/16/2017 3:18 PM CDT Performed at [facility], [address] [place] [address] CLIA number [id number] Gagandeep Hinojosa MD LAB_1 Performing Organization Address [facility] Phon e Number REINA EDMONDS [address] [place] [address] (ABNORMAL) POCT Glycosylated Hemoglobin (HB A1C) (02/16/2017 10:54 AM CDT) [facility] gist Method Time Signature Glycosolated HGB 11.8 [...] - 02/16/2017 11:05 AM CDT Performed at [facility], [facility] [place] [address] CLIA number [id number] Gagandeep Hinojosa MD LAB_1 Performing Organization Address [facility] Phon e Number REINA EDMONDS [address] [place] [address] documented in this encounter Visit Diagnoses Diagnosis Uncontrolled type 2 diabetes mellitus wi thout complication, with long-term current use of insulin (HRC) [E11.65,Z79.4] - Pr imary Paresthesia of lower limb Disturbance of skin sensation Type 2 diabetes mellitus without complic ation, with long-term current use of insulin (HRC) [E11.9, Z79.4] halfway current use of insulin (HRC) Encounter for long-term (current) use of insulin Essential hypertension (HRC) Unspecified essential hypertension Hyperlipidemia, unspecified hyperlipidem ia type (HRC) [E78.5] Tobacco use disorder ([facility]C) Tobacco use disorder Uncontrolled type 2 diabetes mellitus wi thout complication, with long-term current use of insulin ([facility]C) [E11.65,Z79.4] Hyperlipidemia, unspecified hyperlipidem ia type ([facility]C) [E78.5] documented in this encounter Care Teams Property Utilization Officer Relationship Specialty Start Date End Date Gagandeep Hinojosa MD PCP - General 05/17/12 14[address] [facility] [place] [address] Vane Zarate Psychiatrist Psychiatry 03/22/12 documented as of this encounter
--- OUTSIDE RECORDS SUMMARY | 2022-02-14 10:44 | XMS_ITS | Encounter Summary ---
:1970 Author Organization [email or web address] Address [address] [place] [address] Care Team Providers Name Role Phone Gagandeep Michaud MD Primary Care Provider Reason for Visit Reason Comments Refill metoPROLOL succinate (TOPROL XL) 50 MG 24 hour release tablet [Pharmacy Med Name: METOPROLOL ER SUCCINAT E 50MG TABS] Encounter Details Date Type Department Care Team Description 08/08/2016 Refill Gagandeep Storm, Rochelle l (metoPROLOL Medicine MD succinate (TOPROL XL) [address] MG 24 hour release [place] [address] [place] [address] tablet [Pharmacy Med [phone] (Wo rk) Name: METOPROLOL ER SUCCINATE 50MG [...] MICHAUD Ordering User: CHA MUIR Interface, Out [employer] Query - 08/08/2016 10:29 AM CDT metoPROLOL [...] 72 mm Hg on 07/19/2016 Powered by [employer], Reference: [id number], 08/08/2016 10:29:01 AM CDT, Pool: MANUEL LANDAILL ([id number]) documented in this encounter Plan of Treatment Not on filedocumented as of this encounter Visit Diagnoses Not on filedocumented in this encounter Care Teams Animal Cytologist Relationship Specialty Start Date End Date Gagandeep Michaud MD PCP - General 05/17/12 1415 [facility] [place] [address] Vane Zarate Psychiatrist Psychiatry 03/22/12 documented as of this encounter
--- OUTSIDE RECORDS SUMMARY | 2022-02-14 10:44 | XMS_ITS | Encounter Summary ---
:1970 Author Organization [employer] Address [address], [place] [address] Care Team Providers Name Role Phone Gagandeep Hinojosa MD Primary Care Provider Reason for Visit Reason Comments Diabetes Encounter Details Date Type Department Care Team Description 09/15/2016 Office Visit [place] Glenys Alcantar Tomás franco type 2 diabetes mellitus without complication, without long-term current use of insulin (HRC) (Primary Dx); Endocrinology M, MBYOGESH Bipolar I disorder (HRC) [address] [address] [facility] [phone] [place], [place] [address] Social History Tobacco Use Types Packs/Day Years [...] Reading Time Taken Comments Blood Pressure 120/74 09/15/2016 2:24 PM CDT Pulse 96 09/15/2016 2:24 PM CDT Temperature - - Respiratory Rate - - Oxygen Saturation - - Inhaled Oxygen Concentration - - Weight 103.6 kg (228 lb 8 oz) 09/15/2016 2:24 PM CDT Height 177.8 cm (5' 10) 09/15/2016 2:24 PM CDT Body Mass Index 32.79 09/15/2016 2:24 PM CDT documented in this encounter Progress Notes Glenys Alcantar, REINA - 09/15/2016 2:30 PM CDT [facility] Department of Endocrinology, Diabetes and Metabolism Clinic Note Name: Timur Krishnamurthy Date: 07/19/2016 Cc: Follow up for diabetes management. HPI: Timur Krishnamurthy is a 46 y.o. male #1 T2DM: Diagnosed at age of 40, has long history of non compliance per his report, he has bipolar disorder that is better controlled now. He is currently using metformin 1000 mg BID, tolerating that with no issues, Tresiba 84 units in theAM and regular insulin 67 units BID AC. He is trying to follow a low carb diet, and checks his FSBG 4 times daily, BG are generally running in the 100-180 range. A1C today was 8.5. Eye exam from 05/2016 was reported with no DM changes. He has peripheral neuropathy symptoms (mainly numbness and sometimes pain). Creatinine from 06/2015 was 0.6, had microalbuminuria then, takes lisinopril 10 mg daily BP today [id number]. He takes atorvastatin 80 mg daily, he has history of CAD s/p MS and PCI in 2011. ROS: A 3 point ROS was done, and is negative unless specified otherwise in the HPI. Medications: medication list was reviewed and updated on the EMR. PMHx: Past Medical History: Diagnosis Date ??? Anemia, [...] without mention of complication, uncontrolled (HRC) 12/11/2010 FHx: Reviewed. SHx: Social History Substance Use Topics ??? Smoking status: Current Every Day Smoker Packs/day: 0.00 Years: 25.00 Types: Cigarettes ??? Smokeless tobacco: Former User Quit date: 10/25/2012 Comment: Smoking History Packs/day: ??? Alcohol use No Comment: Alcoholic Drinks/day: Amount:0; Freq:Never; Physical Examination: Vitals: BP 120/74 Pulse 96 Ht 5' 10 (1.778 m) Wt 228 lb 8 oz (103.6 kg) BMI 32.79 kg/m2 General: The patient is alert and oriented, no acute distress. Labs: Reviewed and summarized in the HPI. Assessment and Plan: iTmur Krishnamurthy is a 46 y.o. male: #1 T2DM: Fairly controlled, not optimal, complicated by neuropathy, microalbuminuria, CAD and bipolar disorder. A1C 8.5%. Counseled the patient about the importance of DM control. Counseled him about diet and exercise. Continue metformin 1 gm BID. I will ask him to talk to the insurance and see if any of the GLP1 anaogues covered, we can replace the R insulin with a GLP-1, wrote down the names and he will look into that. Continue R insulin 67 units BID AC. Continue Tresiba 84 units in the AM. Check FSBG 4 times daily. RTC in 3 months. #2 microalbuminuria: continue lisinopril. #3 Dyslipidemia: continue atorvastatin. REINA Barrera Business Strategist documented in this encounter Plan of Treatment Not on filedocumented as of this encounter Procedures Procedure Name Priority Date/Time Associated Diagnosis Comme nts POCT GLYCOSYLATED Routine 09/15/2016 2:36 PM Uncontrolled type 2 Results for this HEMOGLOBIN (HGB A1C) CDT diabetes mellitus pr ocedure are in without the results complication, section. without long-term current use of insulin (HRC) Bipolar I disorder (HRC) documented in this encounter Results (ABNORMAL) POCT glycosylated hemoglobin (Hb A1C) (09/15/2016 2:36 PM CDT) P athologist Signature Hemoglobin A1C, 8.5 (A) 4 - 5.6 % PN POCT POC Cartridge Lot# [id number] PN POCT Specimen (Source) Anatomical Collection Method Collection Time Re ceived Time Location / / Volume Laterality Blood specimen 09/15/2016 2:36 PM (specimen) CDT Glenys HUANG PN POINT OF CARE TESTS Performing Organization Address City/State/ZIP Code Phon e Number POCT PN POCT documented in this encounter Visit Diagnoses Diagnosis Uncontrolled type 2 diabetes mellitus wi thout complication, without long-term current use of insulin - Primary Bipolar I disorder (HRC) Bipolar I disorder, most recent episode (or current) unspecified documented in this encounter Care Teams Soap Drier Operator Relationship Specialty Start Date End Date Gagandeep Hinojosa MD PCP - General 05/17/12 [address] [place] [address] Vane Zarate Psychiatrist Psychiatry 03/22/12 documented as of this encounter
--- OUTSIDE RECORDS SUMMARY | 2022-02-14 10:45 | XMS_ITS | Encounter Summary ---
:1970 Author Organization [employer] Address [address] [place] [address] Care Team Providers Name Role Phone Gagandeep Michaud MD Primary Care Provider Reason for Visit Reason Comments Refill Encounter Details Date Type Department Care Team Description 12/24/2015 Refill [facility] Gagandeep Michaud MD Refill 1415 [facility] . 1415 [place] [address] [place] [address] [phone] (Wo rk) Social History Tobacco Use Types [...] as of this encounter Nursing Notes User, Refillsiria - 12/24/2015 1:50 PM CDT lisinopril (PRINIVIL, ZESTRIL) 5 mg tablet [Pharmacy Med Name: LISINOPRIL 5MG TABLETS] - MEDICATION STARTED: 12/11/2010 - LAST REFILLED ON: 11/04/2015, QTY: 90, Refills: 3, Sig: take 1 tablet by mouth daily (every 24 hours). (changed but equivalent) - WARNING: The patient should have outstanding refills for this medication until 07/31/2016. - REFILL: 9 months (if warnings resolved) - RATIONALE: This refill should last until the patient is due for a(n) Cr check and K check. - LAST QUALIFYING VISIT WITH GAGANDEEP MICHAUD: 11/04/2015 - NEXT SCHEDULED VISIT: None - SBP: 107mm Hg on 11/04/2015 - DBP: 67mm Hg on 11/04/2015 - Cr: 0.6mg/dL on 07/18/2015 - K: 5mEq/L on 07/18/2015 Powered by [employer], Reference: [id number], 12/24/2015 12:10:49 PM CDT, Pool: MANUEL REFILL ([id number]) ING RECOVERY TEACHER Shayy Hess RN - 12/24/2015 1:50 PM CDT Renewed medication per medication refill protocol. Requested Prescriptions Signed Prescriptions Disp Refills ??? lisinopril (PRINIVIL, ZESTRIL) 5 mg tablet 90 tablet 2 Sig: TAKE 1 TABLET BY MOUTH EVERY DAY Authorizing Provider: GAGANDEEP MICHAUD Ordering User: SHAYY HESS Rx resent to pharmacy per current order by PCP dated 11/04/15. ING RECOVERY TEACHER documented in this encounter Plan of Treatment Not on filedocumented as of this encounter Visit Diagnoses Not on filedocumented in this encounter Care Teams Medical Laboratory Assistant Relationship Specialty Start Date End Date Gagandeep Michaud MD PCP - General 05/17/12 1415 [facility] [place] [address] Vane aZrate Psychiatrist Psychiatry 03/22/12 documented as of this encounter
--- OUTSIDE RECORDS SUMMARY | 2022-02-14 10:45 | XMS_ITS | Encounter Summary ---
:1970 Author Organization [facility] Address [address] [place] [address] Care Team Providers Name Role Phone Gagandeep Hinojosa MD Primary Care Provider Reason for Visit Reason Comments MEDICATION THERAPY MANAGEMENT Encounter Details Date Type Department Care Team Description 04/14/2016 Telephone [place] Medication Maddy Crane, MEDICA TION THERAPY Management PharmD MANAGEMENT 14[address] [facility] . [address] [place] [address] [facility] [phone] [place] [address] (Wo rk) Social History Tobacco [...] have ongoing support through is Quit Plan assistant track coach and would like to occasionally call me as well. He only has a 2 week supply ofnicotine 21mg patches at home and is requesting a refill today. Plan: 1) Quit Date: Ninfa Bourne - April 17, 2016 2) Nicotine 21mg patch and Nicotine 4mg gum Will follow-up as needed. Maddy Crane, Pharm.D. Medication Management Pharmacist Yaritza Medication Management EGE OF EDUCATION DEAN documented in this encounter Plan of Treatment Not on filedocumented as of this encounter Visit Diagnoses Diagnosis Tobacco use disorder (HRC) - Primary Tobacco use disorder documented in this encounter Care Teams Paperhanger And Painter Relationship Specialty Start Date End Date Gagandeep Hinojosa MD PCP - General 05/17/12 1415 [facility] [place] [address] Vane Zarate Psychiatrist Psychiatry 03/22/12 documented as of this encounter
--- OUTSIDE RECORDS SUMMARY | 2022-02-14 10:45 | XMS_ITS | Encounter Summary ---
:1970 Author Organization [employer] Address [address] [place] [address] Care Team Providers Name Role Phone Gagandeep Hinojosa MD Primary Care Provider Reason for Visit Reason Onset Date Comments Lab Orders Needed 02/23/2016 Encounter Details Date Type Department Care Team Description 02/23/2016 Telephone [facility] Gagandeep Hinojosa, Lab Orders Needed [address] [place] [address] 1415 [facility] [phone] [place] [address] (Wo rk) Social [...] Urine Random (UMAR) (02/24/2016 11:10 AM CDT) [facility] gist Method Time Signature Microalbumin 114.2 [...] - 02/24/2016 4:26 PM CDT Performed at [facility], [address] [place] [id number] CLIA number [id number] Gagandeep Hinojosa MD LAB_1 Performing Organization Address City/State/ZIP Code Phon e Number PN SOFT [address] [place], [place] [address] [phone] documented in this encounter Visit Diagnoses Diagnosis Uncontrolled type 2 diabetes mellitus wi th diabetic polyneuropathy, with long-term current use of insulin - Primary Uncontrolled type 2 diabetes mellitus wi th diabetic polyneuropathy, with long-term current use of insulin Nonspecific abnormal results of liver fu nction study documented in this encounter Care Teams Manager Of Photography Relationship Specialty Start Date End Date Gagandeep Hinojosa MD PCP - General 05/17/12 1415 [facility] [place] [address] Vane Zarate Psychiatrist Psychiatry 03/22/12 documented as of this encounter
--- OUTSIDE RECORDS SUMMARY | 2022-02-14 10:45 | XMS_ITS | Encounter Summary ---
:1970 Author Organization [facility] Address [address], [place] [address] Care Team Providers Name Role Phone Gagandeep Hinojosa MD Primary Care Provider Reason for Visit Reason Comments MANTOUX/PPD Encounter Details Date Type Department Care Team Description 01/26/2016 Nursing Visit [facility] PPD scree miky test Medicine (Primary Dx) [address] [place] [address] Social History Tobacco Use Types Packs/Day Years [...] SKIN TEST (PPD) (01/29/2016 11:20 AM CDT) [facility] Method Time Signature TB Skin Test 0.0 MM PN POCT Negative Joce Foster MD OPC IMMUNIZATION Performing Organization Address City/State/ZIP Code Phon e Number POCT PN POCT documented in this encounter Visit Diagnoses Diagnosis PPD screening test - Primary Screening examination for pulmonary tube rculosis documented in this encounter Care Teams Apartment Coordinator Relationship Specialty Start Date End Date Gagandeep Hinojosa MD PCP - General 05/17/12 1415 [facility] [place] [address] Vane Zarate Psychiatrist Psychiatry 03/22/12 documented as of this encounter
--- OUTSIDE RECORDS SUMMARY | 2022-02-14 10:45 | XMS_ITS | Encounter Summary ---
:1970 Author Organization [facility] Address [address] [place] [address] Care Team Providers Name Role Phone Gagandeep Michaud MD Primary Care Provider Reason for Visit Reason Onset Date Comments Medication Request 04/02/2016 divalproex (DEPAKOTE ) 500 MG enteric coated tablet Encounter Details Date Type Department Care Team Description 04/02/2016 Telephone [place] [facility] Gagandeep Michaud, Medic ation Request Medicine (divalproex (DEPAKOTE) [address] 500 MG enteric coated [place] [address] [place] [address] tablet) [phone] (Wo rk) Social History Tobacco Use Types [...] encounter Nursing Notes Marci Oliveira RN - 04/02/2016 2:36 PM CST Duplicate request, see other note from today, request sent to PCP to address ING MACHINE COLLECTOR Cristal Vilchis - 04/02/2016 2:00 PM CST Pt is requesting to discuss if Dr. Michaud would be willing to refill medication. Pt states he willbe out of medication on 04/03/16. ING MACHINE COLLECTOR Interface, Out Surescripts Prov Query - 04/02/2016 12:15 PM CST divalproex (DEPAKOTE) 500 MG enteric coated tablet Medication started: 12/11/2010 Last ordered by : 12/11/2010 (1939 days ago as Historical on 12/11/2010 by AYDE MCFARLAND), Sig: take 2,000 mg by mouth daily morning lab. do not cut/crush/chew. take with food. (changed) -> This medication may not have been authorized by the requested provider. -> The most recent order on 11/30/2012. -> The requested medication was previously set to Historical by an non-prescriber. -> The requested sig has changed from the last order. -> Valproic Acid (serum) was found, but the result could not be read. -> Refill x 9 months (until due for a(n) Valproic Acid (serum) check) Last qualifying visit: 02/24/2016 (with GAGANDEEP MICHAUD) Next scheduled visit: None Valproic Acid (serum): Taken on 11/04/2015 Powered by [employer], Reference: [id number], 04/02/2016 12:15:01 PM VENDING MACHINE COLLECTOR, Pool: MANUEL REFILL ([id number]) ING MACHINE COLLECTOR Clair Simpson - 04/02/2016 12:13 PM CST Pt is out of Rx, and doctor out for the week ING MACHINE COLLECTOR documented in this encounter Plan of Treatment Not on filedocumented as of this encounter Visit Diagnoses Not on filedocumented in this encounter Care Teams Automobile Tester Relationship Specialty Start Date End Date Gagandeep Michaud MD PCP - General 05/17/12 [facility] [id number] Vane Zarate Psychiatrist Psychiatry 03/22/12 documented as of this encounter
--- OUTSIDE RECORDS SUMMARY | 2022-02-14 10:45 | XMS_ITS | Encounter Summary ---
:1970 Author Organization Code [facility] Address [address] [place] [address] Care Team Providers Name Role Phone Gagandeep Hinojosa MD Primary Care Provider Reason for Visit Reason Comments Diabetes Letter needs letter for work re ralph traore Encounter Details Date Type Department Care Team Description 02/24/2016 Office Visit Gagandeep Storm Uncontro lled type 2 diabetes mellitus without complication, with long-term current use of insulin (HRC) (Primary Dx); Romario Rubio MD Encounter for immunization; [address] 14[address] [facility] Tobacco use disorder; [address]. Ave Uncontrolled type 2 diabetes mellitus wi thout complication, with long-term current use of insulin (HRC) [E11.65, Z79.4]; [place] Vig[place] [address] [place] VIGIL Hyperlipidemia, unspecified hyperlipidemia type (HRC) [E78.5]; [phone] [address] Financial difficulties Social History Tobacco Use [...] stable. Stable weight. 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 Aspirin: [...] 3. Tobacco use disorder (HR) F17.200 TOBACCO-USE EXECUTIVE KITCHEN MANAGER 3-10 MIN (SYMPTOMATIC) 4. Uncontrolled type 2 [...] Results (ABNORMAL) Microalb/Creat Ratio (06/09/2016 10:18 AM GRINDER OPERATOR EXTERNAL TOOL) [facility] Signature Microalbumin 80.1 mg/L PN SOFT Urine U Creat Random 102 mg/dL PN SOFT Microalbumin/Crea 78.5 (H) 0.0 - PN SOFT tinine Ratio 30.0 Specimen Anatomical Collection Method Collection Time Receive d Time (Source) Location / / Volume Laterality Urine specimen 06/09/2016 10:18 7 (specimen) AM GRINDER OPERATOR EXTERNAL TOOL 11:38 AM GRINDER OPERATOR EXTERNAL TOOL Narrative PN SOFT - 06/09/2016 2:09 PM GRINDER OPERATOR EXTERNAL TOOL Performed at [facility], [facility] [address] [place] [address] CLIA number [id number] Gagandeep Hinojosa MD LAB_1 Performing Organization Address [facility] Phon e Number PN SOFT [address] [place] [address] (ABNORMAL) Lipid Panel and Direct LDL(If Needed) (06/09/2016 9:22 AM GRINDER OPERATOR EXTERNAL TOOL) [facility] Signature Cholesterol 123 0 - 199 PN [...] / Volume Laterality 06/09/2016 9:22 AM 7 GRINDER OPERATOR EXTERNAL TOOL 11:38 AM GRINDER OPERATOR EXTERNAL TOOL Narrative PN SOFT - 06/09/2016 12:25 PM GRINDER OPERATOR EXTERNAL TOOL Performed at [facility], [address] [place] [address] CLIA number [id number] Gagandeep Hinojosa MD LAB_1 Performing Organization Address [facility] Phon e Number PN SOFT [address] [place] [address] (ABNORMAL) POCT Glycosylated Hemoglobin (HB A1C) (06/09/2016 9:22 AM GRINDER OPERATOR EXTERNAL TOOL) Patholo gist Method Time Signature Glycosolated HGB [...] Volume Laterality 06/09/2016 9:22 AM 7 9:22 GRINDER OPERATOR EXTERNAL TOOL AM GRINDER OPERATOR EXTERNAL TOOL Narrative PN SOFT - 06/09/2016 9:45 AM GRINDER OPERATOR EXTERNAL TOOL Performed at [facility], [address] [place] [address] CLIA number [id number] Gagandeep Hinojosa MD LAB_1 Performing Organization Address City/State/ZIP Code Phon e Number PN SOFT [address] [place] [address] [phone] documented in this encounter Visit Diagnoses Diagnosis [...] resources documented in this encounter Care Teams Head Of Quality Relationship Specialty Start Date End Date Gagandeep Hinojosa MD PCP - General 05/17/[address] [place] [address] Vane Zarate Psychiatrsamantha Psychiatry 03/22/12 documented as of this encounter
--- OUTSIDE RECORDS SUMMARY | 2022-02-14 10:45 | XMS_ITS | Encounter Summary ---
:1970 Author Organization [facility] Address [address] [place] [address] Care Team Providers Name Role Phone Gagandeep Hinojosa MD Primary Care Provider Reason for Visit Reason Comments Registry Encounter Details Date Type Department Care Team Description 11/07/2015 Notes/Orders [facility] Gagandeep Hinojosa MD 1415 [facility] . [address] [place] [address] [place] [address] [phone] (Wo rk) Social History Tobacco Use Types Packs/Day Years Used Date Smoking Tobacco: Never Assessed Sex Assigned at Date Recorded Not on file documented as of this encounter Plan of Treatment Not on filedocumented as of this encounter Visit Diagnoses Not on filedocumented in this encounter Care Teams Vinegar Maker Relationship Specialty Start Date End Date Gagandeep Hinojosa MD PCP - General 05/17/12 1415 [facility] [place] [address] Vane Zarate Psychiatrist Psychiatry 03/22/12 documented as of this encounter
--- OUTSIDE RECORDS SUMMARY | 2022-02-14 10:45 | XMS_ITS | Encounter Summary ---
:1970 Author Organization [facility] Address [address] [place] [address] Care Team Providers Name Role Phone Gagandeep Hinojosa MD Primary Care Provider Reason for Visit Reason Onset Date Comments [facility] Phone Visit 02/24/2016 Encounter Details Date Type Department Care Team Description 02/24/2016 Care Coord Phone Judy Luke R N [facility] Phone Visit Medicine 1415 [facility] 1415 [facility] [place] [address] [place] [address] [phone] Social History Tobacco Use Types Packs/Day Years [...] Pittman RN - 02/26/2016 1:59 PM CDT Bandage Wrapping Machine Operator - Phone Call Contact with: Rustam [...] but Rustam states she is shy around senior medical billing specialist and wouldn't feel comfortable talking to me. [...] of Tresiba U200 received and entered into [employer]. Insulin is stored in the Injection Room [...] Pittman RN - 02/24/2016 2:42 PM CDT Bandage Wrapping Machine Operator - Phone Call Contact with: Rustam [...] insulin. Shared plan: Left message for Enmanuel Meet[employer]comisk Rep to request samples of Tresiba. Rustam [...] disorder documented in this encounter Care Teams Customs Opener Verifier Packer Relationship Specialty Start Date End Date Gagandeep Hinojosa MD PCP - General 05/17/[address] [place] [address] Vane Zarate Psychiatrist Psychiatry 03/22/12 documented as of this encounter
--- OUTSIDE RECORDS SUMMARY | 2022-02-14 10:45 | XMS_ITS | Encounter Summary ---
:1970 Author Organization [employer] Address [address] [place] [address] Care Team Providers Name Role Phone Gagandeep Hinojosa MD Primary Care Provider Reason for Visit Reason Comments Diabetes Encounter Details Date Type Department Care Team Description 06/09/2016 Office Visit [place] Gagandeep Russell Uncontro lled type 2 diabetes mellitus without complication, with long-term current use of insulin (HRC) (Primary Dx); Romario Rubio MD Atherosclerosis of coronary artery, dequan na presence unspecified, unspecified vessel or lesion type, unspecified whether nooksack or transplanted heart (HRC); [address] [place] Tobacco abuse; [address] Essential hypertension; [place] [address] [place] VIGIL ASHD (arteriosclerotic heart disease); [phone] [address] Hyperlipidemia LDL goal < 70; [phone] Flatulence; (Work) Uncontrolled type 2 diabetes mellitus wi th diabetic polyneuropathy, with long- term current use of insulin (HRC) [E11.42, Z79.4, E11.65]; [phone] Uncontrolled ty pe 2 diabetes mellitus with [...] Comments Blood Pressure 154/84 06/09/2016 9:53 AM MANAGER PET Pulse 106 06/09/2016 9:53 AM MANAGER PET Temperature - - Respiratory Rate - - Oxygen Saturation - - Inhaled Oxygen Concentration - - Weight 102.5 kg (226 lb) 06/09/2016 9:45 AM MANAGER PET Height - - Body Mass Index 32.43 [...] without complication, with long-term current use of insulin([facility]) E11.65 divalproex (DEPAKOTE) 500 MG enteric coated tablet Z79.4 Insulin Syringe-Needle U-100 (INSULIN SYRINGE 31G X 5/16) 31G X 5/16 1 ML metFORMIN (GLUCOPHAGE) 500 MG tablet 2. Atherosclerosis of coronary artery, angina presence unspecified, unspecified vessel or lesion type, unspecified whether nooksack or transplanted heart ([facility]) I25.10 lisinopril (ZESTRIL) 10 MG tablet 3. Tobacco abuse ([facility]) Z72.0 4. Essential hypertension ([facility]) I10 lisinopril (ZESTRIL) 10 MG tablet Electrolyte Panel Creatinine / GFR 5. ASHD (arteriosclerotic heart disease) ([facility]) I25.10 atorvastatin (LIPITOR) 80 MG tablet [...] [E11.39, Z79.4, E11.65] E11.39 Z79.4 E11.65 10. watch repair technician current use of insulin (HRC) Z79.4 11. Type 2 diabetes mellitus with diabetic polyneuropathy, with long-term current use of insulin (HRC) [E11.42, Z79.4] E11.42 Z79.4 12. Hyperlipidemia, unspecified hyperlipidemia type (HRC) [E78.5] E78.5 13. Tobacco use disorder (HRC) F17.200 aggressively encouraged to stop smoking PLAN: 1. He will again need with neonatal critical care nurse to discuss his insulin dosing. He may [...] UMAR: 3 months Aspirin: yes Tobacco: yes GER PET documented in this encounter Plan of Treatment Not on filedocumented as of this encounter Results (ABNORMAL) Microalb/Creat Ratio (09/07/2016 10:26 AM CDT) [facility] gist Method Time Signature Microalbumin 102.5 [...] - 09/07/2016 3:26 PM CDT Performed at [facility], [address] [place] [address] CLIA number [id number] Gagandeep Hinojosa MD LAB_1 Performing Organization Address City/State/ZIP Code Phon e Number PN SOFT [address] [place] [address] (ABNORMAL) Creatinine / GFR (09/07/2016 10:25 AM [...] - 09/07/2016 3:04 PM CDT Performed at [facility], [address] [place] [address] CLIA number [id number] Gagandeep Hinojosa MD LAB_1 Performing Organization Address City/[facility]/ZIP Code Phon e Number PN SOFT [address] [place] [address] (ABNORMAL) Electrolyte Panel (09/07/2016 10:25 AM CDT) [...] - 09/07/2016 3:04 PM CDT Performed at [facility], [facility] [address] [place] [address] CLIA number [id number] Gagandeep Hinojosa MD LAB_1 Performing Organization Address [facility]/ZIP Code Phon e Number PN SOFT [address] [place] [address] (ABNORMAL) Lipid Panel and Direct LDL(If Needed) (09/07/2016 10:25 AM CDT) [facility] Method Time Signature Cholesterol 128 0 [...] - 09/07/2016 3:04 PM CDT Performed at [facility], [address] [place] [address] CLIA number [id number] Gagandeep Hinojosa MD LAB_1 Performing Organization Address [facility] Phon e Number PN SOFT [address] [place] [address] (ABNORMAL) POCT Glycosylated Hemoglobin (HB A1C) (09/07/2016 10:25 AM CDT) [facility] [employer] Method Time Signature Glycosolated HGB 8.3 (H) [...] - 09/07/2016 10:35 AM CDT Performed at [facility], [facility] [place] [address] CLIA number [id number] Gagandeep Hinojosa MD LAB_1 Performing Organization Address [facility] Phon e Number PN SOFT [address] [place] [address] documented in this encounter Visit Diagnoses Diagnosis [...] Coronary atherosclerosis of unspecified type of vessel, nooksack or graft Hyperlipidemia, unspecified hyperlipidem ia type [...] hypertension documented in this encounter Care Teams Awning Hanger Helper Relationship Specialty Start Date End Date Gagandeep Hinojosa MD PCP - General 05/17/[address] [place] [address] [place] [address] Vane Zarate Psychiatrsamantha Psychiatry 03/22/12 documented as of this encounter
--- OUTSIDE RECORDS SUMMARY | 2022-02-14 10:45 | XMS_ITS | Encounter Summary ---
:1970 Author Organization [facility] Address [address], [place] [address] Care Team Providers Name Role Phone Gagandeep Hinojosa MD Primary Care Provider Encounter Details Date Type Department Care Team Description 03/10/2016 Notes/Orders [place] [facility] Gagandeep Hinojosa MD 1415 [facility] . 1415 [facility] [place] [address] [place] [address] [phone] (Wo rk) Social History Tobacco Use Types [...] on filedocumented in this encounter Care Teams Dobby Loom Fixer Relationship Specialty Start Date End Date Gagandeep Hinojosa MD PCP - General 05/17/12 [address] [facility] [address] Vane Zarate Psychiatrist Psychiatry 03/22/12 documented as of this encounter
--- OUTSIDE RECORDS SUMMARY | 2022-02-14 10:45 | XMS_ITS | Encounter Summary ---
:1970 Author Organization [employer] Address [address], [place] [address] Care Team Providers Name Role Phone Gagandeep Hinojosa MD Primary Care Provider Reason for Visit Reason Onset Date Comments Medication Request 02/25/2016 Jaxson Muhammad Encounter Details Date Type Department Care Team Description 02/25/2016 Telephone [place] [facility] Gagandeep Hinojosa, Medic ation Request Medicine (Jaxson R) [address] [facility] . [address] [place] [address] [place], [place] [address] (Wo rk) Social History Tobacco Use Types [...] MEDICATIONS? Comment: Med not covered Pharmacy Name: [facility] Fax# or Address: [phone] Clinician Name: Ashish Drug Name/Strength: Humulin R [...] Primary documented in this encounter Care Teams Actimize Architect Relationship Specialty Start Date End Date Gagandeep Hinojosa MD PCP - General 05/17/12 1415 [facility] [place] [address] Vane Zarate Psychiatrist Psychiatry 03/22/12 documented as of this encounter
--- OUTSIDE RECORDS SUMMARY | 2022-02-14 10:45 | XMS_ITS | Encounter Summary ---
:1970 Author Organization [employer] Address [address], [place] [address] Care Team Providers Name Role Phone Gagandeep Hinojosa MD Primary Care Provider Reason for Visit Reason Onset Date Comments Nicotine Dependence 03/12/2016 Encounter Details Date Type Department Care Team Description 03/12/2016 Telephone [place] Medication Maddy Crane, PharmD Nicotine Dependence Management [facility] [address] [place] [place] [address] [place] [phone] [address] (Wo rk) Social History Tobacco Use [...] encounter Nursing Notes Maddy Crane, PharmD - 03/12/2016 1:25 PM CST Received a call from Rustam to follow-up on smoking cessation. He has set a new quit date of today. He had a new grandson born 1 week ago which has increased his incentive to quit. Feels more motivated now. He has been journaling some reminders, feelings, and ideas to keep him motivated to quit. Got rid of all his cigarettes. Using nicotine 21mg patch and nicotine 4mg gum. He has used 4-5 pieces of gum today. He has been working with a swimming coach through [employer] as well and finds the support from multiple sources very helpful. He would like to continue checking in with me weekly by telephone. Maddy Crane, Pharm.D. Medication Management Pharmacist [place] Medication Management IC FLOOR LAYER documented in this encounter Plan of Treatment Not on filedocumented as of this encounter Visit Diagnoses Not on filedocumented in this encounter Care Teams Data Entry Machine Operator Relationship Specialty Start Date End Date Gagandeep Hinojosa MD PCP - General 05/17/12 1415 [facility] [place] [address] Vane Zarate Psychiatrist Psychiatry 03/22/12 documented as of this encounter
--- OUTSIDE RECORDS SUMMARY | 2022-02-14 10:45 | XMS_ITS | Encounter Summary ---
:1970 Author Organization [employer] Address [address], [place] [address] Care Team Providers Name Role Phone Gagandeep Hinojosa MD Primary Care Provider Encounter Details Date Type Department Care Team Description 05/03/2016 Notes/Orders [place] [facility] Gagandeep Hinojosa MD [address] [facility] . 1415 [facility] [place] [address] [place] [address] [phone] (Wo rk) Social History Tobacco Use Types [...] on filedocumented in this encounter Care Teams Prompt Care Rn Relationship Specialty Start Date End Date Gagandeep Hinojosa MD PCP - General 05/17/12 1414 [facility] [address] Vane Zarate Psychiatrist Psychiatry 03/22/12 documented as of this encounter
--- OUTSIDE RECORDS SUMMARY | 2022-02-14 10:45 | XMS_ITS | Encounter Summary ---
:1970 Author Organization [employer] Address [address] [place] [address] Care Team Providers Name Role Phone Gagandeep Hinojosa MD Primary Care Provider Reason for Visit Reason Comments MEDICATION THERAPY MANAGEMENT Nicotine Dependence Encounter Details Date Type Department Care Team Description 03/05/2016 Office Visit [place] Medication Maddy Crane, Tobacc o abuse Management PharmD (Primary Dx) [address] [address] [facility] [phone] [place], [place] [id number] (Wo rk) Social History Tobacco Use Types [...] keep yourself occupied for that time! Play eVendor Check, idiag games, going for walks, word searches, chew [...] life! Any questions or concerns, please call [phone] or contact me via [employer]. Maddy Crane, [facility] Medication Management Pharmacist Changes Your Body Goes [...] morning Keep cigarettes far away from bed [place] teeth and rinse with mouthwash as soon [...] something else in your mouth After Meals [place] teeth or rinse with mouthwash Chew sugarless [...] disappear after 2-4 weeks. Tobacco Cessation Resources [employer] ?? 2 weeks of nicotine replacement gum, [...] for smart phones ?? SmokeFree ?? MyQuit Pharmaceutical Salesperson ([place]) ?? Stop Smoking - Mindfulness Meditation ?? Quit Pal ([employer] [place]) ?? My QuitBuddy ?? My Last Cigarette OGICAL AIDE documented in this encounter Progress Notes Maddy Crane, PharmD - 03/05/2016 1:17 PM CST Timur Krishnamurthy is a 46 y.o. male coming in for an initial visit for smoking cessation. He was referred to me from Judy Pittman, RNCC. His primary care provider is Gagandeep Hinojosa MD. Comments/concerns are: smoking cessation. Current medication list is in goBalto and was reviewed. Allergies Allergen Reactions ??? [...] with patient is 30 minutes. Maddy Crane [facility] Medication Management Pharmacist [place] Medication Management Med Mgmt Smartform completed: yes Follow-up Med Mgmt appointment scheduled: no Added to Care Team: yes MAP/CMS Letter required: No Completed: No OGICAL AIDE documented in this encounter Plan of Treatment Not on filedocumented as of this encounter Visit Diagnoses Diagnosis Tobacco abuse (HRC) - Primary Tobacco use disorder documented in this encounter Care Teams Yard Demurrage Clerk Relationship Specialty Start Date End Date Gagandeep Hinojosa MD PCP - General 05/17/12 [address] [place] [address] Vane Zarate Psychiatrist Psychiatry 03/22/12 documented as of this encounter
--- OUTSIDE RECORDS SUMMARY | 2022-02-14 10:45 | XMS_ITS | Encounter Summary ---
:1970 Author Organization [facility] Address [address] [place] [address] Care Team Providers Name Role Phone Gagandeep Hinojosa MD Primary Care Provider Reason for Visit Reason Comments MANTOUX/PPD READ Encounter Details Date Type Department Care Team Description 01/29/2016 Nursing Visit [place] [facility] Encounter for PPD skin Medicine test reading (Primary 1415 [facility] . Dx) [place]ig[place] [address] Social History Tobacco Use Types Packs/Day Years [...] imary documented in this encounter Care Teams [employer] Scout Relationship Specialty Start Date End Date Gagandeep Hinojosa MD PCP - General 05/17/[address] [facility] [place] [address] Vane Zarate Psychiatrist Psychiatry 03/22/12 documented as of this encounter
--- OUTSIDE RECORDS SUMMARY | 2022-02-14 10:45 | XMS_ITS | Encounter Summary ---
:1970 Author Organization [employer] Address [address] [place] [address] Care Team Providers Name Role Phone Gagandeep Hinojosa MD Primary Care Provider Encounter Details Date Type Department Care Team Description 02/24/2016 Lab Visit [facility] Uncontrolled type 2 diabetes mellitus with diabetic polyneuropathy, with long- term current use of insulin ([facility]); [address] Nonspecific abnormal results of liver function study [place] [address] Social History Tobacco Use Types Packs/Day Years [...] - 02/24/2016 4:26 PM CDT Performed at [facility], [address] [place] [address] CLIA number [id number] Gagandeep Hinojosa MD LAB_1 Performing Organization Address [facility] Phon e Number PN SOFT [address] [place] [address] (ABNORMAL) POCT Glycosylated Hemoglobin (HB A1C) (02/24/2016 10:56 AM CDT) [facility] Method Time Signature Glycosolated HGB 10.9 (H) [...] - 02/24/2016 11:30 AM CDT Performed at [facility], [facility] [place] [address] CLIA number [id number] Gagandeep Hinojosa MD LAB_1 Performing Organization Address [facility] Phon e Number PN SOFT [address] [place] [address] Extra Serum Separator Tube (yellow) (02/24/2016 10:54 AM CDT) athologist Signature Extra SST Top Drawn PN SOFT Drawn Specimen (Source) Anatomical Location Collection Method / Collectio n Time Received Time / Laterality Volume Narrative REINA KENDAL - 02/24/2016 10:54 AM CDT Performed at [facility], [address] [facility] [place] [address] CLIA number [id number] Gagandeep Hinojosa MD LAB_1 Performing Organization Address City/State/ZIP Code Phon e Number PN KENDAL [address] [place] [address] documented in this encounter Visit Diagnoses Diagnosis Uncontrolled type 2 diabetes mellitus wi th diabetic polyneuropathy, with long-term current use of insulin Nonspecific abnormal results of liver fu nction study documented in this encounter Care Teams Stake Setter Relationship Specialty Start Date End Date Gagandeep Hinojosa MD PCP - General 05/17/[address] [place] [address] [place] [address] Vane Zarate Psychiatrsamantha Psychiatry 03/22/12 documented as of this encounter
--- OUTSIDE RECORDS SUMMARY | 2022-02-14 10:46 | XMS_ITS | Encounter Summary ---
:1970 Author Organization [facility] Address [address] [place] [address] Care Team Providers Name Role Phone Gagandeep Hinojosa MD Primary Care Provider Encounter Details Date Type Department Care Team Description 08/27/2014 Notes/Orders [facility] Gagandeep Hinojosa MD [address] [facility] . [address] [place] [address] [place] [address] [phone] (Wo rk) Social History Tobacco Use Types Packs/Day Years Used Date Smoking Tobacco: Never Assessed Sex Assigned at Date Recorded Not on file documented as of this encounter Plan of Treatment Not on filedocumented as of this encounter Visit Diagnoses Not on filedocumented in this encounter Care Teams Rn Neonatal Relationship Specialty Start Date End Date Gagandeep Hinojosa MD PCP - General 05/17/12 [address] [facility] [place] [address] Vane Zarate Psychiatrsamantha Psychiatry 03/22/12 documented as of this encounter
--- OUTSIDE RECORDS SUMMARY | 2022-02-14 10:46 | XMS_ITS | Encounter Summary ---
:1970 Author Organization [employer] Address [address] [place] [address] Care Team Providers Name Role Phone Gagandeep Hinojosa MD Primary Care Provider Reason for Visit Reason Comments Diabetes NUMBNESS Nicotine Dependence Encounter Details Date Type Department Care Team Description 11/04/2015 Office Visit Gagandeep Storm Type 2 d iabetes mellitus, uncontrolled ([facility]) (Primary Dx); Romario Rubio MD Need for Tdap vaccination; [address] Nonspeci fic abnormal results of liver function study; [address] 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 of ins ulin ([facility]); [phone] [id number] Long-term insulin use in type 2 diabetes ([facility]); [phone] Hyperlipidemia, unspecified hyperlipidemia type; (Work) Tobacco use disorder; [phone] Obesity, unspec ified obesity severity, unspecified obesity type (Fax) Social History Tobacco Use Types Packs/Day Years Used Date Smoking Tobacco: Never Assessed Sex Assigned at Date Recorded Not on file documented as of this encounter Last Filed Vital Signs Vital Sign Reading Time Taken Comments Blood Pressure 107/67 11/04/2015 4:09 PM CDT Pulse 92 11/04/2015 4:09 PM CDT Temperature - - Respiratory Rate - - Oxygen Saturation - - Inhaled Oxygen Concentration - - Weight 104.8 kg (231 lb) 11/04/2015 4:09 PM CDT Height - - Body Mass Index 33.15 02/14/2014 12:57 PM CDT documented in this encounter Progress Notes Gagandeep Hinojosa MD - 11/05/2015 12:00 AM CDT SUBJECTIVE: 45 y.o. male presents today for diabetes check. 1 month ago, he was let go from his job,which contributes to ongoing financial stress. 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 He is taking half of his dose of insulin secondary to financial strain. He frequently misses his second dose of metformin as well. Aspirin:Continues to take aspirin daily. No stomach pains, no black or tarry stools. Blood pressure:Patient has not been checking blood pressures at home. No chest pain. and No dyspnea.Patient did not bring in outside blood pressure records. Blood sugars: Patient has been checking blood sugars. Blood sugars have not been at goal. No symptomatic highs or lows. Patient Patient did not bring in outside records.. Cholesterol: Lipids have not been at goal. No muscle aches or pains. Tobacco: Patient reports that he is smoking Cigarettes. However, he has cut back on his use and is smoking 10-15 cigarettes daily. He has been smoking about 0.25 packs per day for the past 25 years. Hequit smokeless tobacco use about 3 years ago. Eye exam: Patient is up-to-date with eye exam. Completed 07/28/15, due 1 year from last exam. Patient does not have a history [...] Sig Note Dispense Refill ??? aspirin 81 mg chewable tablet TAKE 1 TABLET BY MOUTH DAILY . 100 tablet 1 ??? atorvastatin (LIPITOR) 80 mg tablet Take 1 tablet by mouth daily (every 24 hours). 90 tablet 3 ??? divalproex (DEPAKOTE) 500 mg [...] 500 each 3 ??? Insulin Syringe-Needle U-100 1 mL 30 gauge X 7/16 Syrg 03/27/2015: Received from: External Pharmacy 3 ??? ketoconazole (NIZORAL) 2 % cream Apply topically daily (every 24 hours). 45 g 2 ??? lisinopril (PRINIVIL, ZESTRIL) 5 mg [...] 2 DIABETES MELLITUS 180 tablet 0 ??? metoprolol succinate (TOPROL-XL) 50 mg 24 hr tablet Take 1 tablet by mouth daily (every 24 hours). 90 tablet 3 ??? nicotine (NICODERM CQ) 21 mg/[address] 1 patch onto the skin. 03/27/2015: Received from: [facility] ??? omega-3 fatty acids-fish oil 340-1,000 mg [...] Comments) Muscle spasm OBJECTIVE: Vital Signs: BP 107/67 mmHg Pulse 92 Wt 231 lb (104.781 kg) General: Alert, Oriented, NAD Head: Normocephalic. Eyes: PERRLA, full EOM. External exams normal. Nose: Patent, without deformity.Throat: Moist mucous membranes without lesions, erythema, or exudate. Heart: RR without murmurs, rubs, or gallops. Respiratory: Normal respiratory effort. Lungs are clear with good breath sounds. Abdomen: The abdomen was flat, soft and nontender without guarding rebound or masses. Positive bowelsounds. Feet: No sores, no swelling, no edema. Exam of the foot is abnormal: Modest hypoesthesia on the balls of the feet bilaterally. Labs: Lab Results Component Value Date A1C 10.9* This is a 20% improvement from 3 months ago 03/27/2015 MICROALBUR 349.6 07/18/2015 CREA 0.60* 07/18/2015 Lab Results Component Value Date CHOLESTEROL 168 07/18/2015 HDL 30* 07/18/2015 LDL 72 07/18/2015 TRIGLYCERIDE 328* 07/18/2015 Lab Results Component Value Date ALT 20 03/07/2013 AST 25 07/13/2013 HEMOGLOBIN A1CRM Date Value Ref Range Status 11/25/2010 10.0* 0.0-6.0 % Final HGB A1C Date Value Ref Range Status 03/27/2015 10.9* 4.0 - 5.6 % Final HEMOGLOBIN A1C RAPID Date Value Ref Range Status 12/09/2014 9.3* 4.0 - 5.6 % Final Comment: The Rapid A1c test is designed for monitoring patients with an established diagnosis of diabetes mellitus. The rapid method is not suitable to establish the intial diagnosis of diabetes melitus. GLYCOSYLATED HEMOGLOBIN A1C Date Value Ref Range Status 11/04/2015 10.5* 4.0 - 5.6 % Final Comment: The Rapid A1c test is designed for monitoring patients with an established diagnosis of diabetes mellitus. The rapid method is not suitable to establish the intial diagnosis of diabetes melitus. HEMOGLOBIN A1C, POC Date Value Ref Range Status 07/06/2011 10.6* 6.0 % Lab Results Component Value Date/Time HEMOGLOBIN A1CRM 10.0* 11/25/2010 1618 HGB A1C 10.9* 03/27/2015 1434 HEMOGLOBIN A1C RAPID 9.3* 12/09/2014 1357 GLYCOSYLATED HEMOGLOBIN A1C 10.5* 11/04/2015 1513 HEMOGLOBIN A1C, POC 10.6* 07/06/2011 1650 No results found for: GLUF Lab Results Component Value Date CL 99 07/18/2015 ASSESSMENT: 1. Type 2 diabetes, uncontrolled 2. Hypertension, controlled 3. Hyperlipidemia, uncontrolled ICD-10-CM 1. Type II or unspecified type diabetes mellitus without mention of complication, uncontrolled ([facility])E11.65 lisinopril (PRINIVIL, ZESTRIL) 5 mg tablet insulin NPH (NOVOLIN N) 100 unit/mL Susp insulin regular (NOVOLIN R) 100 unit/mL injection lisinopril (PRINIVIL, ZESTRIL) 5 mg tablet 2. Need for Tdap vaccination Z23 Tdap (BOOSTRIX) 3. Liver Function Tests Abnormal R94.5 Hepatic Function Panel 4. Atherosclerosis of coronary artery, angina presence unspecified, unspecified vessel or lesion type, unspecified whether [place] or transplanted heart I25.10 lisinopril (PRINIVIL, ZESTRIL) 5 mg tablet lisinopril (PRINIVIL, ZESTRIL) 5 mg tablet PLAN: 1. Recheck in 3 months. The patient was discharged ambulatory and in stable condition. Diabetes measures: A1c Due: 3 months Foot Exam: 3 months Eye exam: UTD, Completed 07/28/15, due 1 year from last exam Cholesterol: 3 months Electrolytes: 3 months UMAR: 3 month Aspirin: yes Tobacco: yes strongly encouraged to consider smoking cessation OVEMENT COORDINATOR documented in this encounter Plan of Treatment Scheduled Orders Name Type Priority Associated Diagnoses Order S chedule Liver Panel(Hepatic Lab Routine Nonspecific abnormal Expected: 11/04/2015, Function Panel) results of liver function Expires: 11/03/2016 study documented as of this encounter Visit Diagnoses Diagnosis Type 2 diabetes mellitus, uncontrolled - Primary Type II or unspecified type diabetes jasen litus without mention of complication, uncontrolled Need for Tdap vaccination Need for prophylactic vaccination with c ombined jgzgzvljed-qtfbvwv-uyfldqdbe (DTP) vaccine Nonspecific abnormal results of liver fu nction study Atherosclerosis of coronary artery, dequan na presence unspecified, unspecified vessel or lesion type, unspecified whether [place] or transplanted heart ([facility]) buttermaker continuous churn current use of insulin ([facility]) Encounter for long-term (current) use of insulin Long-term insulin use in type 2 diabetes ([facility]) Type II or unspecified type diabetes jasen litus without mention of complication, not stated as uncontrolled Hyperlipidemia, unspecified hyperlipidem ia type ([facility]) Tobacco use disorder ([facility]) Tobacco use disorder Obesity, unspecified obesity severity, u nspecified obesity type ([facility]) documented in this encounter Care Teams Financial Service Rep Relationship Specialty Start Date End Date Gagandeep Hinojosa MD PCP - General 05/17/12 [address] [facility] [place] [address] Vane Zarate Psychiatrsamantha Psychiatry 03/22/12 documented as of this encounter
--- OUTSIDE RECORDS SUMMARY | 2022-02-14 10:46 | XMS_ITS | Encounter Summary ---
:1970 Author Organization [facility] Address [address], [place] [address] Care Team Providers Name Role Phone Gagandeep Hinojosa MD Primary Care Provider Encounter Details Date Type Department Care Team Description 08/07/2014 Notes[facility]Orders [facility] Gagandeep Hinojosa MD [address] [facility] . [address] [place] [address] [place] [address] [phone] (Wo rk) Social History Tobacco Use Types Packs/Day Years Used Date Smoking Tobacco: Never Assessed Sex Assigned at Date Recorded Not on file documented as of this encounter Miscellaneous Notes Letter - Gagandeep Hinojosa MD - 08/07/2014 12:00 AM CDT 08/07/2014 Timur Krishnamurthy [address] [place] [id number] : 1970 Dear Timur: I am contacting you with a reminder that it is time for your diabetes visit , please call [phone] to schedule your visit due in July. To prepare for this visit, it is important that you have yourlabs drawn prior to your appointment so the results are available for review at your visit. You willneed to have the following tests: Hemoglobin A1C and Urine microalbumin. You do not have to fast forthese labs. You will need to give a urine specimen. These tests should be completed 30 minutes before your visit. You can schedule your lab appointment at [phone]. Please continue to take your medications as prescribed. We look forward to seeing you again. Gagandeep Hinojosa MD S DEVELOPMENT REPRESENTATIVE documented in this encounter Plan of Treatment Not on filedocumented as of this encounter Visit Diagnoses Not on filedocumented in this encounter Care Teams Catering Administrative Assistant Relationship Specialty Start Date End Date Gagandeep Hinojosa MD PCP - General 05/17/[address] [place], [place] [address] [address] Vane Zarate Psychiatrist Psychiatry 03/22/12 documented as of this encounter
--- OUTSIDE RECORDS SUMMARY | 2022-02-14 10:46 | XMS_ITS | Encounter Summary ---
:1970 Author Organization [facility] Address [address] [place] [address] Care Team Providers Name Role Phone Gagandeep Hinojosa MD Primary Care Provider Encounter Details Date Type Department Care Team Description 12/17/2014 Notes/Orders [facility] Gagandeep Hinojosa MD [address] [facility] . [address] [place] [address] [place] [address] [phone] (Wo rk) Social History Tobacco Use Types Packs/Day Years Used Date Smoking Tobacco: Never Assessed Sex Assigned at Date Recorded Not on file documented as of this encounter Plan of Treatment Not on filedocumented as of this encounter Visit Diagnoses Not on filedocumented in this encounter Care Teams Electric Clock Mechanic Relationship Specialty Start Date End Date Gagandeep Hinojosa MD PCP - General 05/17/12 [address] [facility] [place] [address] Vane Zarate Psychiatrsamantha Psychiatry 03/22/12 documented as of this encounter
--- OUTSIDE RECORDS SUMMARY | 2022-02-14 10:46 | XMS_ITS | Encounter Summary ---
:1970 Author Organization [facility] Address [address] [place] [address] Care Team Providers Name Role Phone Gagandeep Hinojosa MD Primary Care Provider Reason for Visit Reason Comments Refill Encounter Details Date Type Department Care Team Description 07/04/2014 Refill [facility] Vanessa Ram, PAAntoineC Refill [address] [facility] . [address] [facility] [place] [address] [place] [address] [phone] (Wo rk) Social History Tobacco Use Types Packs/Day Years Used Date Smoking Tobacco: Never Assessed Sex Assigned at Date Recorded Not on file documented as of this encounter Plan of Treatment Not on filedocumented as of this encounter Visit Diagnoses Not on filedocumented in this encounter Care Teams Sales Floor Team Leader Relationship Specialty Start Date End Date Gagandeep Hinojosa MD PCP - General 05/17/12 [address] [place] [address] Vane Zarate Psychiatrist Psychiatry 03/22/12 documented as of this encounter
--- OUTSIDE RECORDS SUMMARY | 2022-02-14 10:46 | XMS_ITS | Encounter Summary ---
:1970 Author Organization [employer] Address [address] [place] [address] Care Team Providers Name Role Phone Gagandeep Hinojosa MD Primary Care Provider Encounter Details Date Type Department Care Team Description 07/18/2015 Lab Visit [facility] Type 2 diabetes mellitus, un controlled ([facility]); [address] Microalbuminuria; [place] [address] Hyperlipidemia; [phone] Essential hyper tension Social History Tobacco Use [...] mellitus, uncontrolled proc edure are in NEEDED) ([facility]) the results Type 2 diabetes section. mellitus, uncontrolled ([facility]) Hyperlipidemia CREATININE / GFR Routine 07/18/2015 9:01 [...] (ABNORMAL) Microalb/Creat Ratio (07/18/2015 9:12 AM CDT) [facility] Method Time Signature Microalbumin 349.6 mg/L HP CONVERSION Urine U Creat Random 254 mg/dL HP CONVERSION Microalbumin/Cre 137.6 (H) 0.0 - HP CONVERSION atinine Ratio 30.0 Specimen Anatomical Collection Method Collection Time Receive d Time (Source) Location / / Volume Laterality 07/18/2015 9:12 AM 6 CDT 11:32 AM CDT Narrative HP CONVERSION - 07/18/2015 12:56 PM CDT Performed at [facility] ([facility] [address] [place], [place] [address] CLIA number [id number] Gagandeep Hinojosa MD LAB_1 Performing Organization Address [facility] Phon e Number HP CONVERSION (ABNORMAL) POCT GLYCOSYLATED HEMOGLOBIN (HB A1C) (07/18/2015 9:01 AM CDT) [facility] Time Signature Glycosolated HGB 12.1 (H) 4.0 [...] - 07/18/2015 9:15 AM CDT Performed at [facility] ([facility] [address] [place] [address] CLIA number [id number] Gagandeep Hinojosa MD LAB_1 Performing Organization Address City/[facility] Phon e Number HP CONVERSION (ABNORMAL) Creatinine / GFR (07/18/2015 9:01 AM CDT) [facility] Method Time Signature Creatinine 0.60 (L) [...] - 07/18/2015 12:47 PM CDT Performed at [facility] ([facility] [address] [place] [address] CLIA number [id number] Gagandeep Hinojosa MD LAB_1 Performing Organization Address City/[facility] Phon e Number HP CONVERSION [...] - 07/18/2015 12:47 PM CDT Performed at [facility] ([facility] [address] [place] [address] CLIA number [id number] Gagandeep Hinojosa MD LAB_1 Performing Organization Address City/[facility] Phon e Number HP CONVERSION [...] - 07/18/2015 12:47 PM CDT Performed at [facility] ([facility] [address] [place] [address] CLIA number [id number] Gagandeep Hinojosa MD LAB_1 Performing Organization Address City/[facility] Phon e Number HP CONVERSION EXTRA SERUM SEPARATOR TUBE (YELLOW) (07/18/2015 8:48 AM CDT) athologist Signature Extra SST Top Drawn HP CONVERSION Drawn Specimen (Source) Anatomical Collection Method Collection Time Re ceived Time Location / / Volume Laterality 07/18/2015 8:48 AM CDT Narrative HP CONVERSION - 07/18/2015 8:48 AM CDT Performed at [facility] [place] [address] CLIA number [id number] Gagandeep Hinojosa MD LAB_1 Performing Organization Address City/[facility] Phon e Number HP CONVERSION documented in this encounter Visit Diagnoses Diagnosis Type 2 diabetes mellitus, uncontrolled Type II or unspecified type diabetes jasen litus without mention of complication, uncontrolled Microalbuminuria Proteinuria Hyperlipidemia ([facility]C) Other and unspecified hyperlipidemia Essential hypertension ([facility]C) Unspecified essential hypertension documented in this encounter Care Teams First Breaker Feeder Relationship Specialty Start Date End Date Gagandeep Hinojosa MD PCP - General 05/17/[address] [place] [address] Vane Zarate Psychiatrsamantha Psychiatry 03/22/12 documented as of this encounter
--- OUTSIDE RECORDS SUMMARY | 2022-02-14 10:46 | XMS_ITS | Encounter Summary ---
:1970 Author Organization [employer] Address [address] [place] [address] Care Team Providers Name Role Phone Gagandeep Hinojosa MD Primary Care Provider Encounter Details Date Type Department Care Team Description 11/04/2015 Lab Visit [facility] Type 2 diabetes mellitus, un controlled ([facility]); [address] Bipolar I disorder ([facility]); [place] [address] Hyperlipidemia with target L DL less than [...] CDT mellitus, uncontrolled proce dure are in ([facility]) the results section. POCT GLYCOSYLATED STAT 11/04/2015 3:13 Type 2 diabetes Resu lts for this HEMOGLOBIN (HB A1C) PM CDT mellitus, uncontrolle d procedure are in ([facility]) the results section. LIVER PANEL(HEPATIC STAT 11/04/2015 3:13 Resul ts for this FUNCTION PANEL) PM CDT procedure ar e in the results section. VALPROIC ACID Routine 11/04/2015 3:13 Bipolar I disorder Resul ts for this ([facility]) PM CDT ([facility]) procedure are i n the results [...] (ABNORMAL) Microalb/Creat Ratio (11/04/2015 3:18 PM CDT) [facility] Method Time Signature Microalbumin 98.2 mg/L HP CONVERSION Urine U Creat Random 284 mg/dL HP CONVERSION Microalbumin/Cre 34.6 (H) 0.0 - HP CONVERSION atinine Ratio 30.0 Specimen Anatomical Collection Method Collection Time Receive d Time (Source) Location / / Volume Laterality 11/04/2015 3:18 PM 6 8:48 CDT AM CDT Narrative HP CONVERSION - 11/05/2015 9:25 AM CDT Performed at [facility], [address] [place] [address] CLIA number [id number] Gagandeep Hinojosa MD LAB_1 Performing Organization Address City/[facility] Phon e Number HP CONVERSION Liver Panel(Hepatic Function Panel) (11/04/2015 3:13 PM CDT) [facility] Method Time Signature Alk Phos 53 40 [...] - 11/05/2015 6:06 PM CDT Performed at [facility], [facility] [address] [place] [address] CLIA number [id number] Gagandeep Hinojosa MD LAB_1 Performing Organization Address [facility]/ZIP Code Phon e Number HP CONVERSION ALT (SGPT) (11/04/2015 3:13 PM CDT) [facility] gist Method Time Signature Alanine 23 9 - 55 HP CONVERSION Aminotransferase U/L Specimen Anatomical Collection Method Collection Time Receive d Time (Source) Location / / Volume Laterality 11/04/2015 3:13 PM 6 8:48 CDT AM CDT Narrative HP CONVERSION - 11/05/2015 9:21 AM CDT Performed at [facility], [address] [place] [address] CLIA number [id number] Gagandeep Hinojosa MD LAB_1 Performing Organization Address City/[facility] Code Phon e Number HP CONVERSION AST (11/04/2015 3:13 PM CDT) [facility] Method Time Signature Aspartate 20 9 - 34 HP CONVERSION Aminotransferase U/L Specimen Anatomical Collection Method Collection Time Receive d Time (Source) Location / / Volume Laterality 11/04/2015 3:13 PM 6 8:48 CDT AM CDT Narrative HP CONVERSION - 11/05/2015 9:21 AM CDT Performed at [facility], [address] [place] [address] CLIA number [id number] Gagandeep Hinojosa MD LAB_1 Performing Organization Address [facility] Phon e Number HP CONVERSION Valproic Acid (Depakene) (11/04/2015 3:13 PM CDT) [facility] gist Method Time Signature Date Last Dose 11/04/2015 HP CONVERSION Valproic Acid Time Last Dose 8am HP CONVERSION Valproic Acid Valproic 53 50 - 100 HP CONVERSION Acid/Depakene ug/mL (Valp) Specimen Anatomical Collection Method Collection Time Receive d Time (Source) Location / / Volume Laterality 11/04/2015 3:13 PM 6 CDT 10:36 PM CDT Narrative HP CONVERSION - 11/04/2015 10:41 PM CDT Performed at [facility] [address] [place] [address] CLIA number [id number] Gagandeep Hinojosa MD LAB_1 Performing Organization Address [...] - 11/04/2015 3:35 PM CDT Performed at [facility], [address] [place] [address] CLIA number [id number] Gagandeep Hinojosa MD LAB_1 Performing Organization Address [facility] Phon e Number HP CONVERSION EXTRA SERUM SEPARATOR TUBE (YELLOW) (11/04/2015 3:07 PM CDT) athologist Signature Extra SST Top Drawn HP CONVERSION Drawn Specimen (Source) Anatomical Collection Method Collection Time Re ceived Time Location / / Volume Laterality 11/04/2015 3:07 PM CDT Narrative HP CONVERSION - 11/04/2015 3:07 PM CDT Performed at [facility], [address] [place] [address] CLIA number [id number] Gagandeep Hinojosa MD LAB_1 Performing Organization Address [facility] Phon e Number HP CONVERSION documented in this encounter Visit Diagnoses Diagnosis Type 2 diabetes mellitus, uncontrolled Type II or unspecified type diabetes jasen litus without mention of complication, uncontrolled Bipolar I disorder (HRC) Bipolar I disorder, most recent episode (or current) unspecified Hyperlipidemia with target LDL less than 70 (HRC) Other and unspecified hyperlipidemia documented in this encounter Care Teams Broodmare Barn Groom Relationship Specialty Start Date End Date Gagandeep Hinojosa MD PCP - General 05/17/[address] [place] [address] Vane Zarate Psychiatrist Psychiatry 03/22/12 documented as of this encounter
--- OUTSIDE RECORDS SUMMARY | 2022-02-14 10:46 | XMS_ITS | Encounter Summary ---
:1970 Author Organization [facility] Address [address] [place] [address] Care Team Providers Name Role Phone Gagandeep Hinojosa MD Primary Care Provider Reason for Visit Reason Comments Test Request Encounter Details Date Type Department Care Team Description 11/03/2015 Telephone Member Desk [facility] Gagandeep Hinojosa MD Test Request [address] [facility] . [address] [place] [address] [place] [address] [phone] (Wo rk) Social History Tobacco Use Types [...] Lab orders requested. Next Steps: Route to [facility] for patient follow up. Additional Information: Pt [...] tomorrow. *If symptom related, send to triage Keyboard Instrument Repairer: Timur Krishnamurthy Best call back number: [phone] cell vm/y Is it OK to leave a confidential message on this voicemail? yes OLOGY TECHNOLOGIST documented in this encounter Plan of Treatment Not on filedocumented as of this encounter Visit Diagnoses Diagnosis Bipolar I disorder (HRC) Bipolar I disorder, most recent episode (or current) unspecified Hyperlipidemia with target LDL less than 70 (HRC) Other and unspecified hyperlipidemia documented in this encounter Care Teams Television Receiver Analyzer Relationship Specialty Start Date End Date Gagandeep Hinojosa MD PCP - General 05/17/12 [facility] [place] [address] Vane Zarate Psychiatrist Psychiatry 03/22/12 documented as of this encounter
--- OUTSIDE RECORDS SUMMARY | 2022-02-14 10:46 | XMS_ITS | Encounter Summary ---
:1970 Author Organization [employer] Address [address], [place] [address] Care Team Providers Name Role Phone Gagandeep Hinojosa MD Primary Care Provider Encounter Details Date Type Department Care Team Description 09/18/2014 Hospital Encounter Heart & Vascular Chest pain, unspecified Center Nuclear (Primary Dx) Cardiology [address] [facility] [place] [address] Social History Tobacco Use Types [...] CONVERSION - 09/18/2014 10:10 AM CDT Loading... [facility]*, [address] [facility] [place] [address] ?? Results STRESS TEST PHARMACOLOGICAL ( (Order [id number]) ? Original Order Diagnosis Diagnosis Chest pain, [...] Result History ??STRESS TEST PHARMACOLOGICAL (Order #[id number]) on 09/18/14 - Order Result History Report. ?? Hard Copy Result Report ??Open Hard Copy Result Report (Order#[id number] - STRESS TEST PHARMACOLOGICAL) ?? STRESS TEST PHARMACOLOGICAL (Accession A [id number]) (Order [id number]) ?Image Documentation: Technologist ?No findings ? Removed from In Basket ??Done By ??Kailash Green DO on 09/23/2014 10: 08 PM ?? Patient Release Status: ?This result is not viewable by the irlanda garcia. ?? Patient Information ??Patient Name Sex ??Timur Krishnamurthy ([id number]) Mal e 1970 ?Room Bed Code Status ??2217 Prior ?? Order STRESS TEST PHARMACOLOGICAL [[id number]] (A ccession [id number]) (Order [id number]) Order Requisition ??STRESS TEST PHARMACOLOGICAL (Order #[id number]) on 09/18/14 ?? Priority and Order Details ??Priority Class ??Routine Hospital Performed ? Quantity ??Ordering Quantity ??1 ?? Order Information ??Date Department Released By Pankaj ambrosio ??09/18/2014 [facility], Order Release Kailash Green DO ?? [...] Information ??Recipient Phone ??Kailash Green DO, DO [[id number] [phone] ?? Appointments for this Order ??09/18/2014 ??9:00 [...] irlanda garcia. ?? Timur Krishnamurthy (MR # [id number]) P arnel at 09/24/14 10:09 AM Kailash Green DO PN CARDIAC SERVICES ORDERABL ES Performing Organization Address City/State/ZIP Code Phon e Number HP CONVERSION documented in this encounter Visit Diagnoses Diagnosis Chest pain, unspecified - Primary documented in this encounter Care Teams Thermodynamics Professor Relationship Specialty Start Date End Date Gagandeep Hinojosa MD PCP - General 05/17/12 [address] [place] [address] Vane Zarate Psychiatrist Psychiatry 03/22/12 documented as of this encounter
--- OUTSIDE RECORDS SUMMARY | 2022-02-14 10:46 | XMS_ITS | Encounter Summary ---
:1970 Author Organization [employer] Address [address] [place] [address] Care Team Providers Name Role Phone Gagandeep Hinojosa MD Primary Care Provider Encounter Details Date Type Department Care Team Description 03/27/2015 Lab Visit [facility] Type 2 diabetes mellitus, un controlled; [address] Hyperlipidemia; [place] [address] Essential hypertension [phone] Social History Tobacco Use Types Packs/Day Years Used Date Smoking Tobacco: Never Assessed Sex Assigned at Date Recorded Not on file documented as of this encounter Plan of Treatment Not on filedocumented as of this encounter Procedures Procedure Name Priority Date/Time Associated Diagnosis Comme nts ALBUMIN/CREAT RATIO Routine 03/27/2015 3:41 Type 2 diabetes Re sults for this PM SONAR SUBSYSTEM EQUIPMENT OPERATOR mellitus, uncontrolled proce dure are in (HRC) the results section. LIPID PANEL AND Routine 03/27/2015 1:53 Essential hypertension Results for this DIRECT LDL(IF PM SONAR SUBSYSTEM EQUIPMENT OPERATOR procedure are in NEEDED) the results section. CREATININE / GFR Routine 03/27/2015 1:53 Essential hypertensio n Results for this PM SONAR SUBSYSTEM EQUIPMENT OPERATOR procedure are i n the results section. ELECTROLYTE PANEL Routine 03/27/2015 1:53 Hyperlipidemia Resul ts for this PM SONAR SUBSYSTEM EQUIPMENT OPERATOR procedure are i n the results section. documented in this encounter Results (ABNORMAL) Microalb/Creat Ratio (03/27/2015 3:41 PM SONAR SUBSYSTEM EQUIPMENT OPERATOR) [facility] Method Time Signature Microalbumin 26.1 mg/L HP CONVERSION Urine U Creat Random 63 58 - 161 HP CONVERSION mg/dL Microalbumin/Cre 41.4 (H) 0.0 - HP CONVERSION atinine Ratio 30.0 Specimen Anatomical Collection Method Collection Time Receive d Time (Source) Location / / Volume Laterality 03/27/2015 3:41 PM 5 5:47 SONAR SUBSYSTEM EQUIPMENT OPERATOR PM SONAR SUBSYSTEM EQUIPMENT OPERATOR Narrative HP CONVERSION - 03/27/2015 6:43 PM SONAR SUBSYSTEM EQUIPMENT OPERATOR Performed at [facility], [facility] [address] [place] [address] CLIA number [id number] Gagandeep Hinojosa MD LAB_1 Performing Organization Address [facility] Phon e Number HP CONVERSION (ABNORMAL) Lipid Panel and Direct LDL(If Needed) (03/27/2015 1:53 PM SONAR SUBSYSTEM EQUIPMENT OPERATOR) [facility] Method Time Signature Cholesterol 148 0 - [...] Volume Laterality 03/27/2015 1:53 PM 5 5:47 SONAR SUBSYSTEM EQUIPMENT OPERATOR PM SONAR SUBSYSTEM EQUIPMENT OPERATOR Narrative HP CONVERSION - 03/27/2015 6:44 PM SONAR SUBSYSTEM EQUIPMENT OPERATOR Performed at [facility], [facility] [address] [place] [address] CLIA number [id number] Gagandeep Hinojosa MD LAB_1 Performing Organization Address [facility] Phon e Number HP CONVERSION (ABNORMAL) Creatinine / GFR (03/27/2015 1:53 PM SONAR SUBSYSTEM EQUIPMENT OPERATOR) [facility] Method Time Signature Creatinine 0.60 (L) 0.73 [...] Volume Laterality 03/27/2015 1:53 PM 5 5:47 SONAR SUBSYSTEM EQUIPMENT OPERATOR PM SONAR SUBSYSTEM EQUIPMENT OPERATOR Narrative HP CONVERSION - 03/27/2015 6:44 PM SONAR SUBSYSTEM EQUIPMENT OPERATOR Performed at [facility], [address] [place] [address] CLIA number [id number] Gagandeep Hinojosa MD LAB_1 Performing Organization Address [facility] Phon e Number HP CONVERSION (ABNORMAL) Electrolyte Panel (03/27/2015 1:53 PM SONAR SUBSYSTEM EQUIPMENT OPERATOR) athologist Signature Sodium 133 (L) 136 - 145 HP CONVERSION mmol/L Potassium 5.0 3.5 - 5.2 HP CONVERSION mmol/L Chloride 98 98 - 107 HP CONVERSION mmol/L Bicarbonate 24 22 - 29 HP CONVERSION mmol/L Specimen Anatomical Collection Method Collection Time Receive d Time (Source) Location / / Volume Laterality 03/27/2015 1:53 PM 5 5:47 SONAR SUBSYSTEM EQUIPMENT OPERATOR PM SONAR SUBSYSTEM EQUIPMENT OPERATOR Narrative HP CONVERSION - 03/27/2015 6:44 PM SONAR SUBSYSTEM EQUIPMENT OPERATOR Performed at [facility], [address] [place] [address] CLIA number [id number] Gagandeep Hinojosa MD LAB_1 Performing Organization Address [facility] Phon e Number HP CONVERSION documented in this encounter Visit Diagnoses Diagnosis Type 2 diabetes mellitus, uncontrolled Type II or unspecified type diabetes jasen litus without mention of complication, uncontrolled Hyperlipidemia (HRC) Other and unspecified hyperlipidemia Essential hypertension (HRC) Unspecified essential hypertension documented in this encounter Care Teams Manager Quality Compliance Relationship Specialty Start Date End Date Gagandeep Hinojosa MD PCP - General 05/17/12 [facility] [place] [id number] Vane Zarate Psychiatrsamantha Psychiatry 03/22/12 documented as of this encounter
--- OUTSIDE RECORDS SUMMARY | 2022-02-14 10:46 | XMS_ITS | Encounter Summary ---
:1970 Author Organization [facility] Address [address] [place] [address] Care Team Providers Name Role Phone Gagandeep Hinojosa MD Primary Care Provider Encounter Details Date Type Department Care Team Description 12/09/2014 Lab Visit [facility] Type II or unspecified type [address] [facility] . diabetes mellitus without [place] [address] mention of complication, uncontrolled Social History Tobacco [...] - 12/09/2014 1:49 PM CDT Performed at [facility], [address] [facility], [place] [address] Gagandeep Hinojosa MD LAB_1 Performing Organization Address City/[facility] Phon e Number HP CONVERSION (ABNORMAL) HEMOGLOBIN A1C, RAPID (12/09/2014 1:57 PM CDT) Analysis Performed At [facility] Time Signature Hemoglobin A1C 9.3 (H) [...] - 12/09/2014 2:11 PM CDT Performed at [facility], [address] [place] [address] Gagandeep Hinojosa MD LAB_1 Performing Organization Address [facility] Phon e Number HP CONVERSION documented in this encounter Visit Diagnoses Diagnosis Type II or unspecified type diabetes jasen litus without mention of complication, uncontrolled documented in this encounter Care Teams Sales Representative Electric Service Relationship Specialty Start Date End Date Gagandeep Hinojosa MD PCP - General 05/17/[address] [place] [address] Vane Zarate Psychiatrist Psychiatry 03/22/12 documented as of this encounter
--- OUTSIDE RECORDS SUMMARY | 2022-02-14 10:46 | XMS_ITS | Encounter Summary ---
:1970 Author Organization [employer] Address [address] [place] [address] Care Team Providers Name Role Phone Gagandeep Hinojosa MD Primary Care Provider Encounter Details Date Type Department Care Team Description 05/21/2014 Lab Visit [facility] Type II or unspecified type [address] diabetes mellitus without [place] [address] mention of complication, uncontrolled Social History Tobacco Use Types Packs/Day Years Used Date Smoking Tobacco: Never Assessed Sex Assigned at Date Recorded Not on file documented as of this encounter Plan of Treatment Not on filedocumented as of this encounter Procedures Procedure Name Priority Date/Time Associated Diagnosis Comme nts ALBUMIN/CREAT RATIO Routine 05/21/2014 12:21 Type II or Resu lts for this PM INSURANCE AGENT unspecified type procedure a re in diabetes mellitus the result s without mention of section. complication, uncontrolled (HRC) HEMOGLOBIN A1C, Routine 05/21/2014 12:06 Type II or Results for this RAPID PM INSURANCE AGENT unspecified type procedure a re in diabetes mellitus the result s without mention of section. complication, uncontrolled (HRC) LIPID PANEL AND Routine 05/21/2014 12:06 Type II or Results for this DIRECT LDL(IF PM INSURANCE AGENT unspecified type procedure are in NEEDED) diabetes mellitus the result s without mention of section. complication, uncontrolled (HRC) CREATININE / GFR Routine 05/21/2014 12:06 Type II or Results for this PM INSURANCE AGENT unspecified type procedure a re in diabetes mellitus the result s without mention of section. complication, uncontrolled (HRC) ELECTROLYTE PANEL Routine 05/21/2014 12:06 Type II or Result s for this PM INSURANCE AGENT unspecified type procedure a re in diabetes mellitus the result s without mention of section. complication, uncontrolled (HRC) documented in this encounter Results (ABNORMAL) Microalb/Creat Ratio (05/21/2014 12:21 PM INSURANCE AGENT) [facility] gist Method Time Signature Microalbumin 129.0 mg/L HP CONVERSION Urine U Creat Random 142 mg/dL HP CONVERSION Microalbumin/Cre 90.8 (H) 0.0 - HP CONVERSION atinine Ratio 30.0 Specimen Anatomical Collection Method Collection Time Receive d Time (Source) Location / / Volume Laterality 05/21/2014 12:21 05/21/2014 3:33 PM INSURANCE AGENT PM INSURANCE AGENT Narrative HP CONVERSION - 05/21/2014 4:13 PM INSURANCE [place] [address] Gagandeep Hinojosa MD LAB_1 Performing Organization Address [facility] Phon e Number HP CONVERSION Creatinine / GFR (05/21/2014 12:06 PM INSURANCE AGENT) athologist Signature Creatinine 0.8 0.4 - 1.3 [...] Volume Laterality 05/21/2014 12:06 05/21/2014 5:17 PM INSURANCE AGENT PM INSURANCE AGENT Narrative HP CONVERSION - 05/21/2014 6:27 PM INSURANCE AGENT Performed at [facility], [address] [place] [address] Gagandeep Hinojosa MD LAB_1 Performing Organization Address [facility] Phon e Number HP CONVERSION (ABNORMAL) Electrolyte Panel (05/21/2014 12:06 PM INSURANCE AGENT) athologist Signature Sodium 133 (L) 137 - 147 HP CONVERSION mEq/L Potassium 4.4 3.5 - 5.2 HP CONVERSION mEq/L Chloride 95 (L) 98 - 110 HP CONVERSION mEq/L Bicarbonate 27 23 - 33 HP CONVERSION mmol/L Specimen Anatomical Collection Method Collection Time Receive d Time (Source) Location / / Volume Laterality 05/21/2014 12:06 05/21/2014 5:17 PM INSURANCE AGENT PM INSURANCE AGENT Narrative HP CONVERSION - 05/21/2014 6:27 PM INSURANCE AGENT Performed at [facility], [address] [place] [address] Gagandeep Hinojosa MD LAB_1 Performing Organization Address City/[facility] Phon e Number HP CONVERSION (ABNORMAL) Lipid Panel and Direct LDL(If Needed) (05/21/2014 12:06 PM INSURANCE AGENT) [facility] Method Time Signature Cholesterol 152 0 - [...] Volume Laterality 05/21/2014 12:06 05/21/2014 5:17 PM INSURANCE AGENT PM INSURANCE AGENT Narrative HP CONVERSION - 05/21/2014 6:27 PM INSURANCE AGENT Performed at [facility], [address] [place] [address] Gagandeep Hinojosa MD LAB_1 Performing Organization Address [facility] Phon e Number HP CONVERSION (ABNORMAL) HEMOGLOBIN A1C, RAPID (05/21/2014 12:06 PM INSURANCE AGENT) [facility] Method Time Signature Hemoglobin A1C 11.0 (H) [...] / Volume Laterality 05/21/2014 12:06 05/21/2014 PM INSURANCE AGENT 12:06 PM INSURANCE AGENT Narrative HP CONVERSION - 05/21/2014 12:22 PM INSURANCE AGENT Performed at [facility], [address] [place] [address] Gagandeep Hinojosa MD LAB_1 Performing Organization Address City/State/ZIP Code Phon e Number HP CONVERSION documented in this encounter Visit Diagnoses Diagnosis Type II or unspecified type diabetes jasen litus without mention of complication, uncontrolled documented in this encounter Care Teams Youth Care Worker Relationship Specialty Start Date End Date Gagandeep Hinojosa MD PCP - General 05/17/12 [address] [place] [address] Vane Zarate Psychiatrsamantha Psychiatry 03/22/12 documented as of this encounter
--- OUTSIDE RECORDS SUMMARY | 2022-02-14 10:46 | XMS_ITS | Encounter Summary ---
:1970 Author Organization [facility] Address [address] [place] [address] Care Team Providers Name Role Phone Gagandeep Hinojosa MD Primary Care Provider Reason for Visit Reason Comments Diabetes Encounter Details Date Type Department Care Team Description 03/13/2014 Notes/Orders [facility] Gagandeep Hinojosa MD [address] [facility] . [address] [place] [address] [place] [address] [phone] (Wo rk) Social History Tobacco Use Types Packs/Day Years Used Date Smoking Tobacco: Never Assessed Sex Assigned at Date Recorded Not on file documented as of this encounter Plan of Treatment Not on filedocumented as of this encounter Visit Diagnoses Not on filedocumented in this encounter Care Teams Work Checker Relationship Specialty Start Date End Date Gagandeep Hinojosa MD PCP - General 05/17/12 [address] [facility] [address] Vane Zarate Psychiatrist Psychiatry 03/22/12 documented as of this encounter
--- OUTSIDE RECORDS SUMMARY | 2022-02-14 10:46 | XMS_ITS | Encounter Summary ---
:1970 Author Organization [employer] Address [address] [place] [address] Care Team Providers Name Role Phone Gagandeep Hinojosa MD Primary Care Provider Reason for Visit Reason Comments Medication Questions Encounter Details Date Type Department Care Team Description 07/22/2015 Telephone [place] [facility] Gagandeep Hinojosa, Medic ation Questions Medicine 1415 [facility] . 1415 [facility] [address] [place] [address] [phone] (Wo rk) Social History Tobacco Use Types Packs/Day Years Used Date Smoking Tobacco: Never Assessed Sex Assigned at Date Recorded Not on file documented as of this encounter Nursing Notes Jacqueline Vizcaino - 07/23/2015 8:44 AM CDT left message of his refill being faxed in. Gagandeep Hinojosa MD - 07/22/2015 6:26 PM CDT Script sent Cordelia Leyva RN - 07/22/2015 2:44 PM CDT Reason for Call: Medication Problem. Next Steps: Document further recommendations and route to appropriate person or pool. Caller IS expecting a call back from Care Team. Additional Information: Requesting refill for Metformin 500 mg BID. Diarrhea and cramping from increased dose. Patient states he is taking his insulin and BS's have been lower 100-150. To to address IDE POWDER PROCESSOR Gloria Rodrigues - 07/22/2015 12:47 PM CDT Pt calling in, requesting to go back to the original dosing of metFORMIN (GLUCOPHAGE) 1,000 mg tablet. Pt states he has sever diarrhea with the new dosing. pt requesting a call back. Please advise documented in this encounter Plan of Treatment Not on filedocumented as of this encounter Visit Diagnoses Not on filedocumented in this encounter Care Teams Senior Research Manager Relationship Specialty Start Date End Date Gagandeep Hinojosa MD PCP - General 05/17/[address] [place], [place] [address]K[place] Rodriguez [address] Vane Zarate Psychiatrist Psychiatry 03/22/12 documented as of this encounter
--- OUTSIDE RECORDS SUMMARY | 2022-02-14 10:46 | XMS_ITS | Encounter Summary ---
:1970 Author Organization [facility] Address [address] [place] [address] Care Team Providers Name Role Phone Gagandeep Hinojosa MD Primary Care Provider Encounter Details Date Type Department Care Team Description 08/22/2014 Lab Visit [facility] Type II or unspecified type 1415 [facility] . diabetes mellitus without [place] Vigil [address] mention of complication, uncontrolled Social History Tobacco [...] (ABNORMAL) Microalb/Creat Ratio (08/22/2014 2:05 PM CDT) [facility] Method Time Signature Microalbumin 42.5 mg/L HP CONVERSION Urine U Creat Random 140 mg/dL HP CONVERSION Microalbumin/Cre 30.4 (H) 0.0 - HP CONVERSION atinine Ratio 30.0 Specimen Anatomical Collection Method Collection Time Receive d Time (Source) Location / / Volume Laterality 08/22/2014 2:05 PM 5 7:38 CDT PM CDT Narrative HP CONVERSION - 08/22/2014 8:39 PM CDT Performed at [facility], [address] [place] [address] Gagandeep Hinojosa MD LAB_1 Performing Organization Address [facility] Phon e Number HP CONVERSION (ABNORMAL) HEMOGLOBIN A1C, RAPID (08/22/2014 1:13 PM CDT) Analysis Performed At [facility] Time Signature Hemoglobin A1C 8.9 (H) 4.0 [...] - 08/22/2014 1:24 PM CDT Performed at [facility], [address] [place] [address] Gagandeep Hinojosa MD LAB_1 Performing Organization Address [facility] Phon e Number HP CONVERSION documented in this encounter Visit Diagnoses Diagnosis Type II or unspecified type diabetes jasen litus without mention of complication, uncontrolled documented in this encounter Care Teams Picture Frame Maker Relationship Specialty Start Date End Date Gagandeep Hinojosa MD PCP - General 05/17/[address] [place] [id number] Vane Zarate Psychiatrsamantha Psychiatry 03/22/12 documented as of this encounter
--- OUTSIDE RECORDS SUMMARY | 2022-02-14 10:46 | XMS_ITS | Encounter Summary ---
:1970 Author Organization [employer] Address [address] [place] [address] Care Team Providers Name Role Phone Gagandeep Hinojosa MD Primary Care Provider Reason for Visit Reason Comments Diabetes Rash Encounter Details Date Type Department Care Team Description 07/18/2015 Office Visit Gagandeep Storm Type 2 d iabetes mellitus, uncontrolled (HR) (Primary Dx); Medicine MD JF Rubio (arteriosclerotic heart disease); 1415 [facility] 1415 [facility] Hyperlip idemia with target LDL less than 70; Ave. 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, uncontrolled (HR); [phone] Diabetic polyne uropathy associated with type 2 diabetes mellitus (HR); (Work) [facility]PC current use of insulin ([facility]); [phone] Long-term insul in use in type 2 diabetes ([facility]); (Fax) Essential hyper tension; Hyperlipidemia, unspecified hyperlipidemia type; Obesity, unspec ified obesity severity, unspecified obesity type Social History Tobacco Use Types Packs/Day Years Used Date Smoking Tobacco: Never Assessed Sex Assigned at Date Recorded Not on file documented as of this encounter Last Filed Vital Signs Vital Sign Reading Time Taken Comments Blood Pressure 132/84 07/18/2015 9:19 AM CDT Pulse 68 07/18/2015 9:19 AM CDT Temperature - - Respiratory Rate - - Oxygen Saturation - - Inhaled Oxygen Concentration - - Weight 101.6 kg (224 lb) 07/18/2015 9:19 AM CDT Height - - Body Mass Index 32.14 02/14/2014 12:57 PM CDT documented in this encounter Progress Notes Gagandeep Hinojosa MD - 07/18/2015 9:55 PM CDT SUBJECTIVE: 45 y.o. male presents today for diabetes check. Hemoglobin A1c remains elevated, primarily because he cannot afford his insulin costs Aspirin:Continues to take aspirin daily. No stomach [...] records.. Cholesterol: Lipids have not been at goal, although his LDL is below 80. No muscle aches or pains. Tobacco: Patient reports that he has been smoking Cigarettes. He has been smoking about 0.25 packs per day for the past 25 years. He quit smokeless tobacco use about 2 years ago. Eye exam: Patient is up-to-date with eye exam. Patient does not have a history of retinopathy. No blurry or double vision Foot exam: Patient does have a history of numbness Kidney health: does not have a [...] SHORT, INS SYR) 1 mL 30 x 516 Syrg Inject 1 each subcutaneously 4 times daily. 500 each 3 ??? Insulin Syringe-Needle U-100 (ULTRA-THIN II, SHORT, INS SYR) 1 mL 30 x 5/16 Syrg Inject 1 each subcutaneously 4 times daily. 500 each 3 ??? Insulin Syringe-Needle U-100 1 mL 30 gauge X /16 Syrg 03/27/2015: Received from: External Pharmacy 3 ??? lisinopril (PRINIVIL, ZESTRIL) 5 mg [...] patch onto the skin. 03/27/2015: Received from: [facility] ??? omega-3 fatty acids-fish oil 340-1,000 mg [...] Comments) Muscle spasm OBJECTIVE: Vital Signs: BP 132/84 mmHg Pulse 68 Wt 224 lb (101.606 kg) General: Alert, Oriented, NAD Head: Normocephalic. [...] Monofilament exam of the foot is abnormal: Modest hypoesthesia Labs: Lab Results Component Value Date A1C 10.9* 03/27/2015 MICROALBUR 26.1 03/27/2015 CREA 0.60* 03/27/2015 Lab [...] HEMOGLOBIN A1C Date Value Ref Range Status 07/18/2015 12.1* 4.0 - 5.6 % Final Comment: The [...] RAPID 9.3* 12/09/2014 1357 GLYCOSYLATED HEMOGLOBIN A1C 12.1* 07/18/2015 0901 HEMOGLOBIN A1C, POC 10.6* 07/06/2011 1650 No results found for: GLUF Lab Results Component Value Date CL 98 03/27/2015 ASSESSMENT: 1. Type 2 diabetes, uncontrolled 2. Hypertension, controlled 3. Hyperlipidemia, uncontrolled ICD-10-CM ICD-9-CM 1. Type II or unspecified type diabetes mellitus without mention of complication, uncontrolled (HRC)E11.65 250.02 metFORMIN (GLUCOPHAGE) 1,000 mg tablet insulin NPH (NOVOLIN N) 100 unit/mL Susp insulin regular (NOVOLIN R) 100 unit/mL injection OPTOMETRY CONSULT ADULT/PEDS (AMB) 2. ASHD (arteriosclerotic heart disease) I25.10 414.00 atorvastatin (LIPITOR) 80 mg tablet metoprolol succinate (TOPROL-XL) 50 mg 24 hr tablet 3. Hyperlipidemia LDL goal < 70 E78.5 272.4 atorvastatin (LIPITOR) 80 mg tablet 4. Tobacco use disorder Z72.0 305.1 5. Tinea versicolor B36.0 111.0 ketoconazole (NIZORAL) 2 % cream PLAN: 1. Until his financial circumstances improve, his only option would be to increase metformin and possibly add Actos The patient was discharged ambulatory and in stable condition. Diabetes measures: A1c Due: 3 months Foot Exam: 3 months Eye exam: This year Cholesterol: 3 months Electrolytes: 3 months UMAR: 3 months Aspirin: yes Tobacco: yes documented in this encounter Plan of Treatment Not on filedocumented as of this encounter Visit Diagnoses Diagnosis Type 2 diabetes mellitus, uncontrolled - Primary Type II or unspecified type diabetes jasen litus without mention of complication, uncontrolled ASHD (arteriosclerotic heart disease) (H RC) Coronary atherosclerosis of unspecified type of vessel, [place] or graft Hyperlipidemia, unspecified hyperlipidem ia type (HRC) Tobacco use disorder (HRC) Tobacco use disorder Tinea versicolor Pityriasis versicolor 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, uncontrolled Diabetic polyneuropathy associated with type 2 diabetes mellitus (HRC) FPC current use of insulin (HRC) Encounter for long-term (current) use of insulin Long-term insulin use in type 2 diabetes (HRC) Type II or unspecified type diabetes jasen litus without mention of complication, not stated as uncontrolled Essential hypertension (HRC) Unspecified essential hypertension Obesity, unspecified obesity severity, u nspecified obesity type (HRC) documented in this encounter Care Teams Upholstery Instructor Relationship Specialty Start Date End Date Gagandeep Hinojosa MD PCP - General 05/17/12 [address] [place] [address] Vane Zarate Psychiatrist Psychiatry 03/22/12 documented as of this encounter
--- OUTSIDE RECORDS SUMMARY | 2022-02-14 10:46 | XMS_ITS | Encounter Summary ---
:1970 Author Organization [employer] Address [address] [place] [address] Care Team Providers Name Role Phone Gagandeep Hinojosa MD Primary Care Provider Reason for Visit Reason Comments Diabetes Encounter Details Date Type Department Care Team Description 05/14/2014 Notes/Orders [facility] Gagandeep Hinojosa MD 1415 [facility] . 1415 [place] [address] [place] [address] [phone] (Wo rk) Social History Tobacco Use Types Packs/Day Years Used Date Smoking Tobacco: Never Assessed Sex Assigned at Date Recorded Not on file documented as of this encounter Miscellaneous Notes Letter - Gagandeep Hinojosa MD - 05/14/2014 12:00 AM CST 05/14/2014 Timur Krishnamurthy [address] [place] [address] : 1970 Dear Timur: I am contacting you with a reminder that it is time for your diabetes visit , please call [phone] to schedule your visit due in April. [...] You can schedule your lab appointment at [phone]. Please continue to take your medications as prescribed. We look forward to seeing you again. Gagandeep Hinojosa MD MECHANIC documented in this encounter Plan of Treatment Not on filedocumented as of this encounter Visit Diagnoses Not on filedocumented in this encounter Care Teams Embedded Software Developer Relationship Specialty Start Date End Date Gagandeep Hinojosa MD PCP - General 05/17/[address] [place] [address] [place] Gerber [address] Vane Zarate Psychiatrist Psychiatry 03/22/12 documented as of this encounter
--- OUTSIDE RECORDS SUMMARY | 2022-02-14 10:46 | XMS_ITS | Encounter Summary ---
:[address] [facility] Address [address], [place] [address] Care Team Providers Name Role Phone Gagandeep Hinojosa MD Primary Care Provider Encounter Details Date Type Department Care Team Description 07/07/2015 Notes/Orders [facility] Gagandeep Hinojosa MD 1415 [facility] . 1415 [place] [address] [place] [address] [phone] (Wo rk) Social History Tobacco Use Types Packs/Day Years Used Date Smoking Tobacco: Never Assessed Sex Assigned at Date Recorded Not on file documented as of this encounter Miscellaneous Notes Letter - Gagandeep Hinojosa MD - 07/07/2015 12:00 AM CDT 07/07/2015 Timru Krishnamurthy [address] [place] [address] : 1970 Dear Timur: Gagandeep Hinojosa MD has reviewed your medical record and noticed you have not scheduled your diabetes visit. We want to make sure your diabetes treatment plan is right for you. Please call and schedule your visit at [phone]. We look forward to hearing from you, Gagandeep Hinojosa MD E SHEAR SET UP OPERATOR documented in this encounter Plan of Treatment Not on filedocumented as of this encounter Visit Diagnoses Not on filedocumented in this encounter Care Teams Advice Clerk Relationship Specialty Start Date End Date Gagandeep Hinojosa MD PCP - General 05/17/[address] [facility] [place] [address] Vane Zarate Psychiatrist Psychiatry 03/22/12 documented as of this encounter
--- OUTSIDE RECORDS SUMMARY | 2022-02-14 10:46 | XMS_ITS | Encounter Summary ---
:1970 Author Organization [facility] Address [address], [place] [address] Care Team Providers Name Role Phone Gagandeep Hinojosa MD Primary Care Provider Encounter Details Date Type Department Care Team Description 11/06/2014 Notes/Orders [facility] Gagandeep Hinojosa MD 1415 [facility] . 1415 [facility] [place] [address] [place] [address] [phone] (Wo rk) Social History Tobacco Use Types Packs/Day Years Used Date Smoking Tobacco: Never Assessed Sex Assigned at Date Recorded Not on file documented as of this encounter Miscellaneous Notes Letter - Gagandeep Hinojosa MD - 11/06/2014 12:00 AM CDT 11/06/2014 Timur Krishnamurthy [address] [place] [address] : 1970 Dear Timur: I am contacting you with a reminder that it is time for your diabetes visit , please call [phone] to schedule your visit due in October. [...] You can schedule your lab appointment at [phone]. Please continue to take your medications as prescribed. We look forward to seeing you again. Gagandeep Hinojosa MD (General) DISTRIBUTOR TENDER documented in this encounter Plan of Treatment Not on filedocumented as of this encounter Visit Diagnoses Not on filedocumented in this encounter Care Teams Senior Principal Relationship Specialty Start Date End Date Gagandeep Hinojosa MD PCP - General 05/17/[address] [place] [address] Vane Zarate Psychiatrist Psychiatry 03/22/12 documented as of this encounter
--- OUTSIDE RECORDS SUMMARY | 2022-02-14 10:46 | XMS_ITS | Encounter Summary ---
:1970 Author Organization [employer] Address [address] [place] [address] Care Team Providers Name Role Phone Gagandeep Michaud MD Primary Care Provider Reason for Visit Reason Comments Refill Encounter Details Date Type Department Care Team Description 05/01/2014 [facility] . 1415 [place] [address] [place] [address] [phone] (Wo rk) Social History Tobacco Use Types Packs/Day Years Used Date Smoking Tobacco: Never Assessed Sex Assigned at Date Recorded Not on file documented as of this encounter Nursing Notes Alessia Urias - 05/01/2014 1:03 PM CST Requested medication was last renewed on 01/16/14 and sent to [facility] pharmacy. Requested Prescriptions Refused Prescriptions Disp Refills ??? lisinopril (PRINIVIL, ZESTRIL) 5 mg tablet [Pharmacy Med Name: LISINOPRIL 5MG TABLETS] 90 tablet2 Sig: TAKE 1 TABLET BY MOUTH DAILY Refused By: ALESSIA SPICER Reason for Refusal: REQUEST ALREADY RESPONDED TO BY OTHER MEANS (E.G. PHONE OR FAX) User, Shani - 05/01/2014 1:03 PM CST lisinopril (PRINIVIL, ZESTRIL) 5 mg tablet [Pharmacy Med Name: LISINOPRIL 5MG TABLETS] - WARNING: The patient should have outstanding refills for this medication until 10/13/2014. - REFILL: 9 months (if warnings resolved) - RATIONALE: This refill should last until the patient is due for an office visit check, Cr check and K check. - LAST QUALIFYING VISIT WITH GAGANDEEP MICHAUD: 01/16/2014 - NEXT SCHEDULED VISIT: None - MEDICATION STARTED: 12/11/2010 - LAST REFILLED ON: 01/16/2014, QTY: 90, Refills: 3, Sig: take 1 tablet by mouth daily (every 24 hours). (changed but equivalent) - Cr: 0.8mg/dL on 01/16/2014 - K: 4.6mEq/L on 01/16/2014 Powered by [employer], Reference: [id number], 05/01/2014 12:19:14 PM Minerva GRANGER REFILL ([id number]) documented in this encounter Plan of Treatment Not on filedocumented as of this encounter Visit Diagnoses Not on filedocumented in this encounter Care Teams Enforcement Safety Officer Relationship Specialty Start Date End Date Gagandeep Michaud MD PCP - General 05/17/12 [facility]5 [place] Hernandez [id number] Vane Zarate Psychiatrist Psychiatry 03/22/12 documented as of this encounter
--- OUTSIDE RECORDS SUMMARY | 2022-02-14 10:46 | XMS_ITS | Encounter Summary ---
:1970 Author Organization [facility] Address [address] [place] [address] Care Team Providers Name Role Phone Gagandeep Hinojosa MD Primary Care Provider Encounter Details Date Type Department Care Team Description 03/27/2015 Lab Visit [facility] Type 2 diabetes mellitus, [address] [place] [address] Social History Tobacco Use Types Packs/Day Years Used Date Smoking Tobacco: Never Assessed Sex Assigned at Date Recorded Not on file documented as of this encounter Plan of Treatment Not on filedocumented as of this encounter Procedures Procedure Name Priority Date/Time Associated Diagnosis Comme nts HGB A1C Routine 03/27/2015 2:34 PM Type 2 diabetes Resul ts for this WET MILLING WHEEL OPERATOR mellitus, uncontrolled proce dure are in ([facility]) the results section. documented in this encounter Results (ABNORMAL) Hgb A1c (03/27/2015 2:34 PM WET MILLING WHEEL OPERATOR) athologist Signature HGB A1C 10.9 (H) 4.0 - 5.6 % HP CONVERSION Specimen Anatomical Collection Method Collection Time Receive d Time (Source) Location / / Volume Laterality 03/27/2015 2:34 PM 5 7:20 WET MILLING WHEEL OPERATOR PM WET MILLING WHEEL OPERATOR Narrative HP CONVERSION - 03/28/2015 10:19 AM WET MILLING WHEEL OPERATOR Performed at [place] [address] [place] [address] CLIA number [id number] Gagandeep Hinojosa MD LAB_1 Performing Organization Address City/State/ZIP Code Phon e Number HP CONVERSION documented in this encounter Visit Diagnoses Diagnosis Type 2 diabetes mellitus, uncontrolled Type II or unspecified type diabetes jasen litus without mention of complication, uncontrolled documented in this encounter Care Teams Insurance Verification Specialist Relationship Specialty Start Date End Date Gagandeep Hinojosa MD PCP - General 05/17/12 1415 [facility] [place] Ger[place] [address] Vane Zarate Psychiatrist Psychiatry 03/22/12 documented as of this encounter
--- OUTSIDE RECORDS SUMMARY | 2022-02-14 10:46 | XMS_ITS | Encounter Summary ---
:1970 Author Organization [facility] Address [address] [place] [address] Care Team Providers Name Role Phone Gagandeep Hinojosa MD Primary Care Provider Reason for Visit Reason Comments Refill Encounter Details Date Type Department Care Team Description 11/27/2014 Refill [facility] Vanessa Ram PA-C Refill 1515 [facility] . [address] [place] [address] [place] [address] [phone] (Wo rk) Social History Tobacco Use Types Packs/Day Years Used Date Smoking Tobacco: Never Assessed Sex Assigned at Date Recorded Not on file documented as of this encounter Nursing Notes Eliana Kumar RN - 11/28/2014 3:52 PM CDT refill per standing orders documented in this encounter Plan of Treatment Not on filedocumented as of this encounter Visit Diagnoses Not on filedocumented in this encounter Care Teams Lithographic Platemaker Relationship Specialty Start Date End Date Gagandeep Hinojosa MD PCP - General 05/17/12 [address] [place], [place] [address] Vane Zarate Psychiatrist Psychiatry 03/22/12 documented as of this encounter
--- OUTSIDE RECORDS SUMMARY | 2022-02-14 10:46 | XMS_ITS | Encounter Summary ---
:1970 Author Organization [facility] Address [address] [address] Care Team Providers Name Role Phone Gagandeep Hinojosa MD Primary Care Provider Encounter Details Date Type Department Care Team Description 02/18/2015 Notes/Orders [facility] Gagandeep Hinojosa MD 1415 [facility] . [address] [place] [address] [place] [address] [phone] (Wo rk) Social History Tobacco Use Types Packs/Day Years Used Date Smoking Tobacco: Never Assessed Sex Assigned at Date Recorded Not on file documented as of this encounter Plan of Treatment Not on filedocumented as of this encounter Visit Diagnoses Not on filedocumented in this encounter Care Teams Psychotherapist Relationship Specialty Start Date End Date Gagandeep Hinojosa MD PCP - General 05/17/12 1415 [facility] [place] [address] Vane Zarate Psychiatrsamantha Psychiatry 03/22/12 documented as of this encounter
--- OUTSIDE RECORDS SUMMARY | 2022-02-14 10:46 | XMS_ITS | Encounter Summary ---
:1970 Author Organization [facility] Address [address], [place] [address] Care Team Providers Name Role Phone Gagandeep Hinojosa MD Primary Care Provider Encounter Details Date Type Department Care Team Description 11/12/2014 Notes/Orders [facility] Gagandeep Hinojosa MD 1415 [facility] . [address] [place] [address] [place] [address] [phone] (Wo rk) Social History Tobacco Use Types Packs/Day Years Used Date Smoking Tobacco: Never Assessed Sex Assigned at Date Recorded Not on file documented as of this encounter Plan of Treatment Not on filedocumented as of this encounter Visit Diagnoses Not on filedocumented in this encounter Care Teams Rcp Relationship Specialty Start Date End Date Gagandeep Hinojosa MD PCP - General 05/17/12 1415 [facility] [place] [address] Vane Zarate Psychiatrsamantha Psychiatry 03/22/12 documented as of this encounter
--- OUTSIDE RECORDS SUMMARY | 2022-02-14 10:46 | XMS_ITS | Encounter Summary ---
:1970 Author Organization [facility] Address [address], [place] [address] Care Team Providers Name Role Phone Gagandeep Hinojosa MD Primary Care Provider Encounter Details Date Type Department Care Team Description 06/10/2015 Notes/Orders [facility] Gagandeep Hinojosa MD [address] [facility] . [address] [place] [address] [place] [address] [phone] (Wo rk) Social History Tobacco Use Types Packs/Day Years Used Date Smoking Tobacco: Never Assessed Sex Assigned at Date Recorded Not on file documented as of this encounter Miscellaneous Notes Letter - Gagandeep Hinojosa MD - 06/10/2015 12:00 AM CST 06/10/2015 Timur Krishnamurthy [address] [place] [id number] : 1970 Dear Timur: I am contacting you with a reminder that it is time for your diabetes visit , please call [phone] to schedule your visit due in June. [...] You can schedule your lab appointment at [phone]. Please continue to take your medications as prescribed. We look forward to seeing you again. Gagandeep Hinojosa MD ONAL FINANCE INSTRUCTOR documented in this encounter Plan of Treatment Not on filedocumented as of this encounter Visit Diagnoses Not on filedocumented in this encounter Care Teams Wood Chopper Relationship Specialty Start Date End Date Gagandeep Hinojosa MD PCP - General 05/17/[address] [place], [place] [address] 845359 Vane Zarate Psychiatrist Psychiatry 03/22/12 documented as of this encounter
--- OUTSIDE RECORDS SUMMARY | 2022-02-14 10:46 | XMS_ITS | Encounter Summary ---
:1970 Author Organization [facility] Address [address] [place] [address] Care Team Providers Name Role Phone Gagandeep Hinojosa MD Primary Care Provider Reason for Visit Reason Comments [facility] Phone Visit Encounter Details Date Type Department Care Team Description 03/11/2015 Care Coord Phone Judy Luke R N [facility] Phone Visit Medicine 1415 [facility] 1415 [facility] [place] [address] [place] [address] [phone] Social History Tobacco Use Types Packs/Day Years Used Date Smoking Tobacco: Never Assessed Sex Assigned at Date Recorded Not on file documented as of this encounter Progress Notes Judy Pittman, RN - 03/17/2015 12:29 PM CST Rail Express Clerk - Phone Call Contact with: Rustam Reason for call: Care Coordination Discussion/actions: Rustam is calling to report he only a few days of insulin left and cannot afford to purchase more because he has reached the Medicare Coverage Gap. This is the third year that Rustam has had difficulty affording his insulin after reaching the Coverage Gap. In the past, I have assisted with connecting Rustam to the [employer] who has provided assistance. However, last year the [employer] reported they would not be able provide assistance again because Rustam should be able to budget his finances to accommodate this situation in the future. However, Rustam is hoping the [employer] Agency will help him again. I explained to Rustam that the [employer] no longer has funds for medication assistance. Therefore, [place] not have any resources to help with the cost of his insulin this year. Since Rustam is already using [facility] insulin, 8 vials per month for a total cost of $200, he is already on the most inexpensive insulin regimen. There are assistance programs for people who have Medicare and reach the Coverage Gap through [employer] and Vianney Huma, however Rustam's income is far over their income eligibility guidelines. Plus, Rustam notes his just received a raise and their combined income does not qualify for assistance. I do not believe it would be ideal for Rustam to completely switch his insulin regimen to a background plus mealtime regimen for only one month with the use of samples, Rustam agrees. Rather, Rustam thinks his sister/family may be able to help purchase 2 vials of insulin that would help last until he receives his next SSDI check next week. Rustam's last A1c result in 11/2014 was 9.3. Rustam needs and was advised to take more insulin, but states he cannot afford more. Per Rustam's report of his combined income, he does not qualify for any assistance programs and has no other option but to budget his finances to cover the cost of his medications, including insulin. Rustam knows and understands the consequences of uncontrolled BG. Shared plan: Rustam will ask sister/family for help to purchase 2 vials of insulin to last until his next paycheckis received on 03/20/15. Rustam will budget his income to allow for enough savings to cover 1-2 months of insulin whenever he reaches the Coverage Gap in the future. Rustam is due to schedule DM follow up with Dr Hinojosa, last seen 11/2014 and advised to f/u in 3 months. Phone follow up as needed. Rustam verbalized understanding and agreed with plan of care and follow up. FITTER HELPER documented in this encounter Plan of Treatment Not on filedocumented as of this encounter Visit Diagnoses Diagnosis Complex care coordination - Primary Type 2 diabetes mellitus, uncontrolled Type II or unspecified type diabetes jasen litus without mention of complication, uncontrolled Inadequate community resources documented in this encounter Care Teams Obstetrics Teacher Relationship Specialty Start Date End Date Gagandeep Hinojosa MD PCP - General 05/17/12 1415 [facility] [place] [address] Vane Zarate Psychiatrist Psychiatry 03/22/12 documented as of this encounter
--- OUTSIDE RECORDS SUMMARY | 2022-02-14 10:46 | XMS_ITS | Encounter Summary ---
:1970 Author Organization [facility] Address [address] [place] [address] Care Team Providers Name Role Phone Gagandeep Hinojosa MD Primary Care Provider Encounter Details Date Type Department Care Team Description 05/27/2014 Notes/Orders [place] [facility] Gagandeep Hinojosa MD 1415 [facility] . 1415 [place] [address] [place] [address] [phone] (Wo rk) Social History Tobacco Use Types Packs/Day Years Used Date Smoking Tobacco: Never Assessed Sex Assigned at Date Recorded Not on file documented as of this encounter Plan of Treatment Not on filedocumented as of this encounter Visit Diagnoses Not on filedocumented in this encounter Care Teams Seismograph Observer Relationship Specialty Start Date End Date Gagandeep Hinojosa MD PCP - General 05/17/12 1415 [facility] [place] [address] Vane Zarate Psychiatrsamantha Psychiatry 03/22/12 documented as of this encounter
--- OUTSIDE RECORDS SUMMARY | 2022-02-14 10:46 | XMS_ITS | Encounter Summary ---
:1970 Author Organization [employer] Address [address] [place] [address] Care Team Providers Name Role Phone Gagandeep Hinojosa MD Primary Care Provider Reason for Visit Reason Comments Diabetes Encounter Details Date Type Department Care Team Description 08/22/2014 Office Visit Gagandeep Storm Type II or unspecified type diabetes mellitus without mention of complication, uncontrolled (Primary Dx); Romario Rubio MD Tobacco use disorder; [address] . 1415 [facility] Obesity, unspecified; [place] [address] Av ASHD (arteriosclerotic heart disease) [phone] [place], [place] [address] Social History Tobacco Use Types [...] Coronary atherosclerosis of unspecified type of vessel, three affiliated or graft documented in this encounter Care Teams Lace Weaver Relationship Specialty Start Date End Date Gagandeep Hinojosa MD PCP - General 05/17/12 1415 [facility] [place] [address] Vane Zarate Psychiatrsamantha Psychiatry 03/22/12 documented as of this encounter
--- OUTSIDE RECORDS SUMMARY | 2022-02-14 10:46 | XMS_ITS | Encounter Summary ---
:1970 Author Organization [facility] Address [address] [place] [address] Care Team Providers Name Role Phone Gagandeep Hinojosa MD Primary Care Provider Encounter Details Date Type Department Care Team Description 07/22/2015 Notes/Orders [place] [facility] Gagandeep Hinojosa MD 1415 [facility] . [address] [place] [address] [place] [address] [phone] (Wo rk) Social History Tobacco Use Types Packs/Day Years Used Date Smoking Tobacco: Never Assessed Sex Assigned at Date Recorded Not on file documented as of this encounter Plan of Treatment Not on filedocumented as of this encounter Visit Diagnoses Not on filedocumented in this encounter Care Teams Tooth Cutter Clutch Relationship Specialty Start Date End Date Gagandeep Hinojosa MD PCP - General 05/17/12 1415 [facility] [place] [address] Vane Zarate Psychiatrsamantha Psychiatry 03/22/12 documented as of this encounter
--- OUTSIDE RECORDS SUMMARY | 2022-02-14 10:46 | XMS_ITS | Encounter Summary ---
:1970 Author Organization [facility] Address [address] [place] [address] Care Team Providers Name Role Phone Gagandeep Hinojosa MD Primary Care Provider Encounter Details Date Type Department Care Team Description 10/02/2015 Notes/Orders [place] [facility] Gagandeep Hinojosa MD 1415 [facility] . 1415 [facility] [place] [address] [place] [address] [phone] (Wo rk) Social History Tobacco Use Types Packs/Day Years Used Date Smoking Tobacco: Never Assessed Sex Assigned at Date Recorded Not on file documented as of this encounter Miscellaneous Notes Letter - Gagandeep Hinojosa MD - 10/02/2015 12:00 AM CDT 10/02/2015 Timur Krishnamurthy [address] [place] [address] : 1970 Dear Timur: I am contacting you with a reminder that it is time for your diabetes visit , please call [phone] to schedule your visit due in September. To prepare for this visit, it is [...] These tests should be completed 30 minutes beforeyour visit. You can schedule your lab appointment at [phone]. Please continue to take your medications as prescribed. We look forward to seeing you again. Gagandeep Hinojosa MD O PLAYER MECHANIC documented in this encounter Plan of Treatment Not on filedocumented as of this encounter Visit Diagnoses Not on filedocumented in this encounter Care Teams Asbestos Surveyor Relationship Specialty Start Date End Date Gagandeep Hinojosa MD PCP - General 05/17/[address] [place], [place] [address] [address] Vane Zarate Psychiatrist Psychiatry 03/22/12 documented as of this encounter
--- OUTSIDE RECORDS SUMMARY | 2022-02-14 10:46 | XMS_ITS | Encounter Summary ---
:1970 Author Organization [employer] Address [address] [place] [address] Care Team Providers Name Role Phone Gagandeep Michaud MD Primary Care Provider Reason for Visit Reason Comments Refill Encounter Details Date Type Department Care Team Description 07/04/2014 Refill [facility] Gagandeep Michaud MD Refill 1415 [facility] . 1415 [place] [address] [place] [address] [phone] (Wo rk) Social History Tobacco Use Types [...] than 8.0%) - LAST QUALIFYING VISIT WITH GAGANDEEP MICHAUD: 05/21/2014 - NEXT SCHEDULED VISIT: None - MEDICATION STARTED: 01/16/2014 - LAST REFILLED ON: 01/16/2014, QTY: 180, Refills: 0, Sig: take 1 tablet by mouth 2 times daily (with meals). (changed but equivalent) - Cr: 0.8mg/dL on 05/21/2014 - HBA1C: 11.0% on 05/21/2014 Powered by [email or web address], Reference: [id number], 07/04/2014 2:47:54 PM CDT, Pool: MANUEL REFILL ([id number]) Alaina Garduno RN - 07/04/2014 3:31 PM [...] on filedocumented in this encounter Care Teams Ship Laborer Relationship Specialty Start Date End Date Gagandeep Michaud MD PCP - General 05/17/[address] [place] [address] [place] [address] Vane Zarate Psychiatrist Psychiatry 03/22/12 documented as of this encounter
--- OUTSIDE RECORDS SUMMARY | 2022-02-14 10:46 | XMS_ITS | Encounter Summary ---
:1970 Author Organization [employer] Address [address] [place] [address] Care Team Providers Name Role Phone Gagandeep Hinojosa MD Primary Care Provider Reason for Visit Reason Comments Diabetes Encounter Details Date Type Department Care Team Description 09/27/2015 Nurse Triage [facility] Gagandeep Hinojosa MD Diabetes 1415 [facility] . 1415 [facility] [place] [address] [place] [address] [phone] (Wo rk) Social History Tobacco Use Types Packs/Day Years Used Date Smoking Tobacco: Never Assessed Sex Assigned at Date Recorded Not on file documented as of this encounter Nursing Notes Melanie Smith RN - 09/27/2015 9:40 AM CDT Protocol: DIABETES - HIGH BLOOD [id number] Affirmative: Blood glucose > 400 mg/dl (22 mmol/l) Disposition of Call PCP Now suggested. PT took his BS this morning and it was 471. It usually runs in the 150's. He is a little sweaty but otherwise ok. He just took his Insulin , his novolin N and Novolin R . Does not have a sliding scale.Call placed to the traffic monitor specialist, Dr Ding, who recommended that pt give the Insulins time to kick in [facility] in one hour. Pt called back and informed of this. Pt at this time says he feels dizzy and sweaty and not well. He wants to be seen. Recommended that pt be seen. documented in this encounter Plan of Treatment Not on filedocumented as of this encounter Visit Diagnoses Not on filedocumented in this encounter Care Teams Wood Filler Relationship Specialty Start Date End Date Gagandeep Hinojosa MD PCP - General 05/17/12 1415 [facility] [place] [address] Vane Zarate Psychiatrist Psychiatry 03/22/12 documented as of this encounter
--- OUTSIDE RECORDS SUMMARY | 2022-02-14 10:46 | XMS_ITS | Encounter Summary ---
:1970 Author Organization [facility] Address [address], [place] [address] Care Team Providers Name Role Phone Gagandeep Hinojosa MD Primary Care Provider Encounter Details Date Type Department Care Team Description 04/02/2015 Notes/Orders [place] [facility] Gagandeep Hinojosa MD 1415 [facility] . [address] [place] [address] [place] [address] [phone] (Wo rk) Social History Tobacco Use Types Packs/Day Years Used Date Smoking Tobacco: Never Assessed Sex Assigned at Date Recorded Not on file documented as of this encounter Plan of Treatment Not on filedocumented as of this encounter Visit Diagnoses Not on filedocumented in this encounter Care Teams Cryptoanalysis Teacher Relationship Specialty Start Date End Date Gagandeep Hinojosa MD PCP - General 05/17/12 1415 [facility] [place] [address] Vane Zarate Psychiatrsamantha Psychiatry 03/22/12 documented as of this encounter
--- OUTSIDE RECORDS SUMMARY | 2022-02-14 10:46 | XMS_ITS | Encounter Summary ---
:1970 Author Organization [facility] Address [address] [place] [address] Care Team Providers Name Role Phone Gagandeep Hinojosa MD Primary Care Provider Encounter Details Date Type Department Care Team Description 02/18/2015 Notes/Orders [place] [facility] Gagandeep Hinojosa Type 2 d layo Rubio MD mellitus, uncontrolled [address] 1415 [facility] ([facility] [place]x[facility] [place] [address] Ave [phone] [facility] [address] Social History Tobacco Use Types Packs/Day Years Used Date Smoking Tobacco: Never Assessed Sex Assigned at Date Recorded Not on file documented as of this encounter Miscellaneous Notes Letter - Gagandeep Hinojosa MD - 02/18/2015 12:00 AM CDT 02/18/2015 Timur Krishnamurthy [address] [place] [id number] : 1970 Dear Timur: I am contacting you with a reminder that it is time for your diabetes visit , please call [phone] to schedule your visit due in February. [...] You can schedule your lab appointment at [phone]. Please continue to take your medications as prescribed. We look forward to seeing you again. Gagandeep Hinojosa MD FIC INSPECTOR documented in this encounter Plan of Treatment Not on filedocumented as of this encounter Visit Diagnoses Diagnosis Type 2 diabetes mellitus, uncontrolled - Primary Type II or unspecified type diabetes jasen litus without mention of complication, uncontrolled documented in this encounter Care Teams Clam Bed Laborer Relationship Specialty Start Date End Date Gagandeep Hinojosa MD PCP - General 05/17/12 1415 [facility] [place] [address] Vane Zarate Psychiatrist Psychiatry 03/22/12 documented as of this encounter
--- OUTSIDE RECORDS SUMMARY | 2022-02-14 10:46 | XMS_ITS | Encounter Summary ---
:1970 Author Organization [employer] [facility] Address [address] [place] [address] Care Team Providers Name Role Phone Gagandeep Michaud MD Primary Care Provider Reason for Visit Reason Comments Refill Encounter Details Date Type Department Care Team Description 03/29/2015 [facility]ill [facility]15 [facility] . 1415 [place] [address] [place] [address] [phone] (Wo rk) Social History Tobacco Use Types Packs/Day Years Used Date Smoking Tobacco: Never Assessed Sex Assigned at Date Recorded Not on file documented as of this encounter Nursing Notes Jackie Frederick CMA - 03/31/2015 8:38 AM CST Requested prescription was last renewed on 12/09/14 and sent to [facility] pharmacy with year supply. Requested Prescriptions Refused Prescriptions Disp Refills ??? lisinopril (PRINIVIL, ZESTRIL) 5 mg tablet [Pharmacy Med Name: LISINOPRIL 5MG TABLETS] 90 tablet3 Sig: TAKE 1 TABLET BY MOUTH EVERY DAY Refused By: JACKIE FREDERICK V Reason for Refusal: REQUEST ALREADY RESPONDED TO BY OTHER MEANS (E.G. PHONE OR FAX) GER DATA Shani Blackman - 03/31/2015 8:38 AM CST [...] - K: 5.0mEq/L on 03/27/2015 Powered by [employer], Reference: [id number], 03/29/2015 10:43:13 AM Minerva GRANGER ([id number]) GER DATA documented in this encounter Plan of Treatment Not on filedocumented as of this encounter Visit Diagnoses Not on filedocumented in this encounter Care Teams Shop Girl Relationship Specialty Start Date End Date Gagandeep Michaud MD PCP - General 05/17/12 [employer] [place] [address] Vane Zarate Psychiatrist Psychiatry 03/22/12 documented as of this encounter
--- OUTSIDE RECORDS SUMMARY | 2022-02-14 10:46 | XMS_ITS | Encounter Summary ---
:1970 Author Organization [facility] Address [address] [place] [address] Care Team Providers Name Role Phone Gagandeep Hinojosa MD Primary Care Provider Reason for Visit Reason Comments Prior Authorization Request Encounter Details Date Type Department Care Team Description 07/31/2015 [facility] Au thorization [facility] MD Joanne Request 1415 [facility] . 1415 [place] [address] Ave [phone] [place], [place] [address] Social History Tobacco Use Types Packs/Day Years Used Date Smoking Tobacco: Never Assessed Sex Assigned at Date Recorded Not on file documented as of this encounter Nursing Notes Haley Smith LPN - 08/25/2015 11:20 AM CDT Marco Antonio, has this issue been checked into? ISH COLLECTOR Gagandeep Hinojosa MD - 08/05/2015 10:09 AM CDT All of these insulins are tier 3 costs. Please call pharmacy. How much would these cost the patient? IT Marco Antonio Malcolm MA - 07/31/2015 3:30 PM CDT PRIOR AUTHORIZATION OR CHANGE MEDICATIONS? Comment: 30 day supply provided, med not covered after Pharmacy Name: [facility] Fax# or Address: [phone] Clinician Name: Ashish Drug Name/Strength: Novolin R 100unit per mL Sig: Inject 76 Units subcutaneously 2 times daily (before meals). BREAKFAST AND DINNER Formulary Alternative: See list in providers inbasket Insurance Carrier: [email or web address] Would you like to switch pt to formulary alternative (see list in your inbasket) or start PA for Novolin? documented in this encounter Plan of Treatment Not on filedocumented as of this encounter Visit Diagnoses Not on filedocumented in this encounter Care Teams Printed Circuit Boards Contact Printer Relationship Specialty Start Date End Date Gagandeep Hinojosa MD PCP - General 05/17/12 [facility] [place] [address] Vane Zarate Psychiatrist Psychiatry 03/22/12 documented as of this encounter
--- OUTSIDE RECORDS SUMMARY | 2022-02-14 10:47 | XMS_ITS | Encounter Summary ---
:1970 Author Organization [employer] Address [address] [place] [address] Care Team Providers Name Role Phone Gagandeep Hinojosa MD Primary Care Provider Encounter Details Date Type Department Care Team Description 01/16/2014 Lab Visit [place] [facility] Type II or unspecified type diabetes mellitus without mention of complication, uncontrolled; [address] Other and unspecified hyperl ipidemia [place] [address] Social History Tobacco Use Types Packs/Day Years [...] (ABNORMAL) Microalb/Creat Ratio (01/16/2014 10:18 AM CDT) [facility] gist Method Time Signature Microalbumin 120.8 mg/L HP CONVERSION Urine U Creat Random 102 mg/dL HP CONVERSION Microalbumin/Cre 118.4 (H) 0.0 - HP CONVERSION atinine Ratio 30.0 Specimen Anatomical Collection Method Collection Time Receive d Time (Source) Location / / Volume Laterality 01/16/2014 10:18 01/16/2014 AM CDT 12:42 PM CDT Gagandeep Hinojosa MD LAB_1 Performing Organization Address City/[facility] Phon e Number HP CONVERSION Creatinine / [...] - 01/16/2014 12:32 [place] [address] Gagandeep Hinojosa MD LAB_1 Performing Organization Address [facility] Phon e Number HP CONVERSION (ABNORMAL) Electrolyte [...] - 01/16/2014 12:32 PM CDT Performed at [facility], [address] [place] [address] Gagandeep Hinojosa MD LAB_1 Performing Organization Address City/[facility]/ZIP [facility] Phon e Number HP CONVERSION (ABNORMAL) HEMOGLOBIN A1C, RAPID (01/16/2014 10:14 AM CDT) [facility] gist Method Time Signature Hemoglobin A1C [...] - 01/16/2014 10:24 AM CDT Performed at [facility], [address] [place] [address] Gagandeep Hinojosa MD LAB_1 Performing Organization Address [facility] Phon e Number HP CONVERSION documented in this encounter Visit Diagnoses Diagnosis Type II or unspecified type diabetes jasen litus without mention of complication, uncontrolled Other and unspecified hyperlipidemia (HR C) Other and unspecified hyperlipidemia documented in this encounter Care Teams Box Inspector Relationship Specialty Start Date End Date Gagandeep Hinojosa MD PCP - General 05/17/[address] [place] [id number] Vane Zarate Psychiatrist Psychiatry 03/22/12 documented as of this encounter
--- OUTSIDE RECORDS SUMMARY | 2022-02-14 10:47 | XMS_ITS | Encounter Summary ---
:1970 Author Organization Formerly [facility] Address [address] [place] [address] Care Team Providers Name Role Phone Gagandeep Hinojosa MD Primary Care Provider Reason for Visit Reason Comments Diabetes Encounter Details Date Type Department Care Team Description 11/16/2013 Notes/Orders [facility] Gagandeep Hinojosa MD 1415 [facility] . [address] [place] [address] [place] [address] [phone] (Wo rk) Social History Tobacco Use Types Packs/Day Years Used Date Smoking Tobacco: Never Assessed Sex Assigned at Date Recorded Not on file documented as of this encounter Plan of Treatment Not on filedocumented as of this encounter Visit Diagnoses Not on filedocumented in this encounter Care Teams Quality Control Associate Relationship Specialty Start Date End Date Gagandeep Hinojosa MD PCP - General 05/17/12 [facility]15 [facility] [address] Vane Zarate Psychiatrist Psychiatry 03/22/12 documented as of this encounter
--- OUTSIDE RECORDS SUMMARY | 2022-02-14 10:47 | XMS_ITS | Encounter Summary ---
:1970 Author Organization [facility] Address [address] [address] Care Team Providers Name Role Phone Gagandeep Hinojosa MD Primary Care Provider Reason for Visit Reason Comments Refill Encounter Details Date Type Department Care Team Description 02/26/2014 [facility] Maricarmen Ram PA-C Refill Cardiology [address] [place] [address] [place] [address] [phone] Social History Tobacco Use Types Packs/Day Years [...] PCP - General 05/17/12 1415 [place] [address] Vane Zarate Psychiatrist Psychiatry 03/22/12 documented as of this encounter
--- OUTSIDE RECORDS SUMMARY | 2022-02-14 10:47 | XMS_ITS | Encounter Summary ---
:1970 Author Organization [employer] Address [address], [place] [address] Care Team Providers Name Role Phone Gagandeep Hinojosa MD Primary Care Provider Encounter Details Date Type Department Care Team Description 11/21/2013 Notes/Orders Heart & Vascular Juan Daniel Caba Decre [facility] Cardiology ejection fraction [address] (Primary Dx) [place] [phone] (Wo rk) Social History Tobacco Use Types [...] a message to call back - ext [phone] Jacqueline Vizcaino - 11/23/2013 12:51 PM CDT left message to call us back. documented in this encounter Plan of Treatment Not on filedocumented as of this encounter Visit Diagnoses Diagnosis Decreased cardiac ejection fraction - Pr imary documented in this encounter Care Teams Grain Cleaner And Transfer Operator Relationship Specialty Start Date End Date Gagandeep Hinojosa MD PCP - General 05/17/12 1415 [place] [address] Vane Zarate Psychiatrist Psychiatry 03/22/12 documented as of this encounter
--- OUTSIDE RECORDS SUMMARY | 2022-02-14 10:47 | XMS_ITS | Encounter Summary ---
:1970 Author Organization [employer] Address [address] [place] [address] Care Team Providers Name Role Phone Gagandeep Hinojosa MD Primary Care Provider Reason for Visit Reason Comments Other Encounter Details Date Type Department Care Team Description 11/22/2013 Telephone [facility] Gagandeep Hinojosa MD Other 1415 [facility] . 14[address] [place] [address] [place] [address] [phone] (Wo rk) Social History Tobacco Use Types Packs/Day Years Used Date Smoking Tobacco: Never Assessed Sex Assigned at Date Recorded Not on file documented as of this encounter Nursing Notes Jackeline Al - 11/22/2013 11:47 AM CDT Timur is scheduled at [facility] on November 27 at 3:00. Maximilian Ag [...] on filedocumented in this encounter Care Teams Intelligence Officer Basic Relationship Specialty Start Date End Date Gagandeep Hinojosa MD PCP - General 05/17/12 [facility] [place] [address] Vane Zarate Psychiatrist Psychiatry 03/22/12 documented as of this encounter
--- OUTSIDE RECORDS SUMMARY | 2022-02-14 10:47 | XMS_ITS | Encounter Summary ---
:1970 Author Organization [employer] Address [address] [place] [address] Care Team Providers Name Role Phone Gaganedep Michaud MD Primary Care Provider Reason for Visit Reason Comments Follow-up Encounter Details Date Type Department Care Team Description 01/09/2014 Office Visit [facility] Vanessa Ram, Coronary atherosclerosis of unspecified type of vessel, anvik or graft (Primary Dx); [address] (arteriosclerotic heart disease); [address] [place], old; [place] [address] Blvd Hyperlipidemia LDL goal < 70; [phone] [place], [place] Type II or unspecified type diabetes mellitus without mention of complication, uncontrolled; [address] Tobacco use disorder; [phone] Hypertriglyceri demia; (Work) Tachycardia, unspecified Social History [...] 6 weeks. Please contact the lab at [phone] to schedule a lab appointment at [facility] after a 12 hour fast mid May. They will have the lab orders when you get there, so you are not responsible to bring a lab slip. 2. Call Keri FINCH [phone] if you develop abdominal pain, nausea or [...] Ram PA-C Service: (none) Author Type: Physician Concierge Receptionist Filed: 01/17/14 1538 Note Time: 01/10/14 1053 Status: Signed Briquetting Machine Operator: Vanessa Ram PA-C (Physician Concierge Receptionist) NAME: SHARLENE VARNER MR#: [id number] CSN: [id number] AUTHENTICATING CLINICIAN: Vanessa Ram PA-C CONFIRM #: [id number] LOC: 3205 CLINIC PROGRESS NOTE DATE OF VISIT: 01/09/2014 : 1970 CHIEF COMPLAINT: Coronary artery disease. Mr. Varner is a pleasant, 43-year-old gentleman who presents to the [place] [facility]. He was recently discharged from [facility] on December 19, after presenting withprolonged chest [...] On his angiogram in 2012, he had jzpu-sk-biovzrzf diffuse disease, specifically in the distal RCA [...] free samples. MEDICATIONS: Reviewed and updated in [employer]. Cardiac medications include aspirin 81 mg daily, simvastatin 80 mg daily, currently Coreg 6.25 mg daily, lisinopril 5 mg daily, omega-3 two capsules twice a day and Ffglvu70 mg p.r.n. ADVERSE DRUG REACTIONS/ALLERGIES: Reviewed and updated in [facility]. REVIEW OF SYSTEMS: A complete 12-point review [...] strong pedal pulses. Recent laboratory data at [facility] on December 19: White blood cells 6.2, [...] of 60%. Normal left ventricular size with hnhy-oj-zyxijcti concentric left ventricular hypertrophy. No regional wall [...] a bare-metal stent in April 2011. b. Akmz-ne-frbkyjrg diffuse nonobstructive distal disease on coronary angiogram on October 27, 2012. Thepreviously deployed stent in the posterior descending branch of the right coronary artery was patent, with rifw-ge-vbtqlhcs in-stent restenosis. This did not appear to [...] goal. 3. Hyperlipidemia. We reviewed the new [place] [employer] guidelines that outlined that withhis [...] to do that. CC: VALERI NORRIS MD [address] [place] [address] GAGANDEEP MICHAUD MD 1415 [place] [address] LJR:MEDQ C: CONFIRM #: [id number] documented in this encounter Plan of Treatment Not on filedocumented as of this encounter Visit Diagnoses Diagnosis Coronary atherosclerosis of unspecified type of vessel, anvik or graft (HRC) - Primary Coronary atherosclerosis of unspecified type of vessel, anvik or graft ASHD (arteriosclerotic heart disease) (H RC) Coronary atherosclerosis of unspecified type of vessel, anvik or graft [place], old (HRC) Old myocardial infarction Hyperlipidemia LDL goal < 70 (HRC) Other and unspecified hyperlipidemia Type II or unspecified type diabetes jasen litus without mention of complication, uncontrolled Tobacco use disorder (HRC) Tobacco use disorder Hypertriglyceridemia (HRC) Pure hyperglyceridemia Tachycardia, unspecified documented in this encounter Care Teams Contract Law Specialist Relationship Specialty Start Date End Date Gagandeep Michaud MD PCP - General 05/17/12 1415 [facility] [place] [address] Vane Zarate Psychiatrist Psychiatry 03/22/12 documented as of this encounter
--- OUTSIDE RECORDS SUMMARY | 2022-02-14 10:47 | XMS_ITS | Encounter Summary ---
:1970 Author Organization [facility] Address [address] [place] [address] Care Team Providers Name Role Phone Gagandeep Hinojosa MD Primary Care Provider Reason for Referral Specialty Diagnoses / Procedures Referred By Contact Refer red To Contact Gagandeep Hinojosa MD [address] [facility] [address] [place] [address] Referral ID Status Reason Start Date Expiration Date Visits Requ ested Visits Authorized Reason for Visit Reason Comments Diabetes Encounter Details Date Type Department Care Team Description 01/16/2014 Office Visit Gagandeep Storm (Primary Dx); Romario Rubio MD Type II or unspecified type diabetes jasen litus without mention of complication, uncontrolled; [address] 1415 [facility] Need for influenza vaccinati on; [place] [address] [address] Proteinuria; [phone] [place] [address] senior care current use of insulin; [phone] Long-term insul in use in type 2 [...] Associated Orders ICD-9-CM 1. Financial difficulties V60.[address] [facility] Care Coordination Consult (AMB) 2. Type II or unspecified type diabetes mellitus without mention of complication, uncontrolled (HCC)250.02 lisinopril (PRINIVIL, ZESTRIL) 5 mg tablet metFORMIN (GLUCOPHAGE) 500 mg tablet insulin NPH (NOVOLIN N) 100 unit/mL Susp insulin regular (NOVOLIN R) 100 unit/mL injection Chronic 3. Need for influenza vaccination V04.81 Fluarix Influenza QIV (36+ mos) PLAN: 1. refer to health senior carehome therapy teacher. Add metformin Diabetes measures: A1c Due: 3 [...] vaccination and in oculation against influenza Proteinuria senior care current use of insulin (HRC) Encounter [...] unspecified documented in this encounter Care Teams Substation Inspector Relationship Specialty Start Date End Date Gagandeep Hinojosa MD PCP - General 05/17/12 14[address] [place] [address] Vane Zarate Psychiatrist Psychiatry 03/22/12 documented as of this encounter
--- OUTSIDE RECORDS SUMMARY | 2022-02-14 10:47 | XMS_ITS | Encounter Summary ---
:1970 Author Organization [employer] Address [address] [address] Care Team Providers Name Role Phone Gagandeep Hinojosa MD Primary Care Provider Encounter Details Date Type Department Care Team Description 11/21/2013 Hospital Encounter Heart & Vascular Chest pain, unspecified (Primary Dx); Center Nuclear ASHD (arterio sclerotic heart disease) Cardiology [facility] [place] [address] Social History Tobacco Use Types [...] Coronary atherosclerosis of unspecified type of vessel, [place] or graft documented in this encounter Care Teams Early Childhood Special Educator Relationship Specialty Start Date End Date Gagandeep Hinojosa MD PCP - General 05/17/12 1415 [facility] [place] [id number] Vane Zarate Psychiatrsamantha Psychiatry 03/22/12 documented as of this encounter
--- OUTSIDE RECORDS SUMMARY | 2022-02-14 10:47 | XMS_ITS | Encounter Summary ---
:1970 Author Organization [employer] Address [address] [place] [address] Care Team Providers Name Role Phone Gagandeep Hinojosa MD Primary Care Provider Reason for Visit Reason Comments Diabetes Encounter Details Date Type Department Care Team Description 07/20/2013 Office Visit Gagandeep Storm Type II or unspecified type diabetes mellitus without mention of complication, uncontrolled (Primary Dx); Romario Rubio MD Hyperlipidemia LDL goal < 70; [address] [place] 1415 [facility] Onychomy cosis; Ave. Ave Tobacco abuse; [place] [address] [place], [place] custodial current use of ins ulin; [phone] Long-term insulin use in type 2 diabetes ; [phone] Unspecified ess ential hypertension; (Work) Other and unspecified hyperlipidemia; [phone] Tobacco use dis order; (Fax) Obesity, unspec [...] - 07/21/2013 12:37 AM CDT [place] [phone] My Diabetes at a Glance Aspirin Use [...] nail Tobacco abuse (HRC) Tobacco use disorder custodial current use of insulin (HRC) Encounter for [...] unspecified documented in this encounter Care Teams Signal Wirer Relationship Specialty Start Date End Date Gagandeep Hinojosa MD PCP - General 05/17/12 [facility]5 [facility] [place] [address] Vane Zarate Psychiatrist Psychiatry 03/22/12 documented as of this encounter
--- OUTSIDE RECORDS SUMMARY | 2022-02-14 10:47 | XMS_ITS | Encounter Summary ---
:1970 Author Organization [employer] Address [address] [place] [address] Care Team Providers Name Role Phone Gagandeep Hinojosa MD Primary Care Provider Reason for Visit Reason Comments Follow-up Encounter Details Date Type Department Care Team Description 02/14/2014 Office Visit [facility] Zoie West, Coronary atherosclerosis of unspecified type of vessel, nikolai or graft (Primary Dx); [address] [place], old; [address] Hyperlipidemia LDL goal < 70 ; [place] [address] Blvd Type II or unspecified type diabetes jasen litus without mention of complication, uncontrolled; [phone] [place], [place] Tobacco us e disorder [address] Social History Tobacco Use Types Packs/Day Years [...] Ram PA-C. Call sooner if any concerns [phone] Keri FINCH documented in this encounter Progress Notes [facility] [place] PA-C - 02/14/2014 1:33 PM CDT NAME: SHARLENE VARNER MR#: [id number] CSN: [id number] AUTHENTICATING CLINICIAN: Vanessa Ram PA-C CONFIRM #: [id number] LOC: 3205 CLINIC PROGRESS NOTE DATE OF VISIT: 01/09/2014 : 1970 CHIEF COMPLAINT: Coronary artery disease. Mr. Varner is a pleasant, 44-year-old gentleman who presents to the [place] [facility]. He was seen last by Vanessa [...] On his angiogram in 2012, he had qugn-pf-ypybfdfm diffuse disease, specifically inthe distal RCA and [...] 5' 10 (177.8 cm) Wt 231 lb (946380 g) BMI 33.15 kg/m2 Pulsewith my recheck [...] of 60%. Normal left ventricular size with ucws-sc-andbyaik concentric left ventricular hypertrophy. No regional wall [...] a bare-metal stent in April 2011. b. Zrpt-vh-xanygivt diffuse nonobstructive distal disease on coronary angiogram on October 27, 2012. Thepreviously deployed stent in the posterior descending branch of the right coronary artery was patent, with mtsn-pe-psnioyix in-stent restenosis. This did not appear to [...] Coronary atherosclerosis of unspecified type of vessel, nikolai or graft (HRC) - Primary Coronary atherosclerosis of unspecified type of vessel, nikolai or graft [place], old (HRC) Old myocardial infarction Hyperlipidemia LDL goal < 70 (HRC) Other and unspecified hyperlipidemia Type II or unspecified type diabetes jasen litus without mention of complication, uncontrolled Tobacco use disorder (HRC) Tobacco use disorder documented in this encounter Care Teams Student Officer Relationship Specialty Start Date End Date Gagandeep Hinojosa MD PCP - General 05/17/12 1415 [facility] [place] [address] Vane Zarate Psychiatrsamantha Psychiatry 03/22/12 documented as of this encounter
--- OUTSIDE RECORDS SUMMARY | 2022-02-14 10:47 | XMS_ITS | Encounter Summary ---
:1970 Author Organization [facility] Address [address] [place] [address] Care Team Providers Name Role Phone Gagandeep Hinojosa MD Primary Care Provider Reason for Visit Reason Comments Patient Calling Back Encounter Details Date Type Department Care Team Description 11/23/2013 Telephone [facility] Gagandeep Hinojosa, Anastasia nt Calling Back Medicine 1415 [facility] . 1415 [place] [address] [place] [address] [phone] (Wo rk) Social History Tobacco Use Types Packs/Day Years Used Date Smoking Tobacco: Never Assessed Sex Assigned at Date Recorded Not on file documented as of this encounter Nursing Notes Tatyana Christian RN - 11/23/2013 1:42 PM CDT Action requested: Return Call Request-only if additional information needed to be given to patient. Additional Info: Pt calling. States that he is returning a call from [facility] from around 10 am today.He is aware of his Echocardiogram at [facility] on 11/27 at 3:00. To [facility] for review. An Maldonado - 11/23/2013 1:37 PM CDT Patient says he returning a call from the [facility] from [facility] this morning. documented in this encounter Plan of Treatment Not on filedocumented as of this encounter Visit Diagnoses Not on filedocumented in this encounter Care Teams Strategic Development Manager Relationship Specialty Start Date End Date Gagandeep Hinojosa MD PCP - General 05/17/[address] [place] [address] [place] [address] Vane Zarate Psychiatrist Psychiatry 03/22/12 documented as of this encounter
--- OUTSIDE RECORDS SUMMARY | 2022-02-14 10:47 | XMS_ITS | Encounter Summary ---
:1970 Author Organization [facility] Address [address] [place] [address] Care Team Providers Name Role Phone Gagandeep Hinojosa MD Primary Care Provider Encounter Details Date Type Department Care Team Description 01/16/2014 Lab Visit [facility] Hypertriglyceridemia; [address] Tachycardia, unspecified [place] [id number] Social History Tobacco Use Types Packs/Day Years [...] Vanessa Ram PA-C LAB_1 Performing Organization Address City/[facility] Code Phon e Number HP CONVERSION Lipase (01/16/2014 10:14 AM CDT) athologist Signature Lipase 47 5 - 70 U/L HP CONVERSION Specimen Anatomical Collection Method Collection Time Receive d Time (Source) Location / / Volume Laterality 01/16/2014 10:14 01/16/2014 AM CDT 11:49 AM CDT Narrative HP CONVERSION - 01/16/2014 2:11 PM CDT Performed at [facility], [address] [place] [address] Vanessa Ram PA-C LAB_1 Performing Organization Address [facility] Phon e Number HP CONVERSION Amylase (01/16/2014 10:14 AM CDT) athologist Signature Amylase Serum 48 25 - 115 HP CONVERSION U/L Specimen Anatomical Collection Method Collection Time Receive d Time (Source) Location / / Volume Laterality 01/16/2014 10:14 01/16/2014 AM CDT 11:49 AM CDT Narrative HP CONVERSION - 01/16/2014 2:11 PM [place] [address] Vanessa Ram PA-C LAB_1 Performing Organization Address [facility] Phon e Number HP CONVERSION (ABNORMAL) Triglycerides (> 12 Hr. Fast) (01/16/2014 10:14 AM CDT) athologist Signature Triglycerides 614 (H) 0 - 149 HP CONVERSION mg/dL Specimen Anatomical Collection Method Collection Time Receive d Time (Source) Location / / Volume Laterality 01/16/2014 10:14 01/16/2014 AM CDT 11:49 AM CDT Narrative HP CONVERSION - 01/16/2014 2:11 PM CDT Performed at [facility], [address] [place] [address] Vanessa Ram PA-C LAB_1 Performing Organization Address [facility] Phon e Number HP CONVERSION documented in this encounter Visit Diagnoses Diagnosis Hypertriglyceridemia (HRC) Pure hyperglyceridemia Tachycardia, unspecified documented in this encounter Care Teams Route Sales Person Relationship Specialty Start Date End Date Gagandeep Hinojosa MD PCP - General 1/23/13 1415 [facility] [place] [address] Vane Zarate Psychiatrist Psychiatry 03/22/12 documented as of this encounter
--- OUTSIDE RECORDS SUMMARY | 2022-02-14 10:47 | XMS_ITS | Encounter Summary ---
:1970 Author Organization [facility] Address [address], [place] [address] Care Team Providers Name Role Phone Gagandeep Hinojosa MD Primary Care Provider Reason for Visit Reason Comments Missed Appointment Encounter Details Date Type Department Care Team Description 01/03/2014 Telephone [facility] Vanessa Ram PA-C Missed Appointment 1515 [facility] . [address] [place] [address] [place], [place] [phone] (Wo rk) Social History Tobacco Use Types [...] filedocumented in this encounter Care Teams Rail Specialist Relationship Specialty Start Date End Date Gagandeep Hinojosa MD PCP - General 05/17/12 1415 [place], [place] [id number] Vane Zarate Psychiatrist Psychiatry 03/22/12 documented as of this encounter
--- OUTSIDE RECORDS SUMMARY | 2022-02-14 10:47 | XMS_ITS | Encounter Summary ---
:1970 Author Organization [employer] Address [address], [place] [address] Care Team Providers Name Role Phone Gagandeep Hinojosa MD Primary Care Provider Reason for Visit Reason Comments RESULTS, TEST Patient Calling Back Encounter Details Date Type Department Care Team Description 11/27/2013 Telephone [facility] Gagandeep Hinojosa RESUL TS, TEST; Patient Medicine MD Calling Back 1415 [facility] . [address] [place] [address] [place], [place] [phone] (Wo rk) Social History Tobacco Use Types [...] PM CDT Patient requesting results. competed at [facility] on 11/27/13 Show images for ECHO COMPLETE [...] and where was test done? 11/27/13 at [place] Patient has questions on the results and if he should have any work restrictions. Please advise. Who ordered the test? Gagandeep Hinojosa MD documented in this encounter Plan of Treatment Not on filedocumented as of this encounter Visit Diagnoses Not on filedocumented in this encounter Care Teams Trust Mail Clerk Relationship Specialty Start Date End Date Gagandeep Hinojosa MD PCP - General 05/17/12 [address] [place] [address] Vane Zarate Psychiatrist Psychiatry 03/22/12 documented as of this encounter
--- OUTSIDE RECORDS SUMMARY | 2022-02-14 10:47 | XMS_ITS | Encounter Summary ---
:1970 Author Organization [employer] Address [address] [place] [address] Care Team Providers Name Role Phone Gagandeep Hinojosa MD Primary Care Provider Reason for Visit Reason Comments UPDATE Encounter Details Date Type Department Care Team Description 01/17/2014 Telephone [facility] Vanessa Ram PA-C UPDATE 1515 [facility] . [address] [place] [address] [place], [place] [phone] (Wo rk) Social History Tobacco Use Types [...] for pt. to call me back . [phone] Vanessa Ram PA-C - 01/17/2014 12:40 PM [...] are still elevated since he was in [place] when they were 1274. Further control of [...] on filedocumented in this encounter Care Teams Transportation Maintenance Specialist Relationship Specialty Start Date End Date Gagandeep Hinojosa MD PCP - General 05/17/12 [address] [place] [address] Vane Zarate Psychiatrist Psychiatry 03/22/12 documented as of this encounter
--- OUTSIDE RECORDS SUMMARY | 2022-02-14 10:47 | XMS_ITS | Encounter Summary ---
:1970 Author Organization [facility] Address [address] [place] [address] Care Team Providers Name Role Phone Gagandeep Michaud MD Primary Care Provider Reason for Visit Reason Comments Refill Encounter Details Date Type Department Care Team Description 08/03/2013 Refill [facility]ep [facility]aud MD [facility] 14[address] [facility] [place] [facility] [place] [address] [place] [address] [phone] (Wo rk) Social History Tobacco Use Types [...] on filedocumented in this encounter Care Teams Sequencing Machine Operator Relationship Specialty Start Date End Date Gagandeep Michaud MD PCP - General 05/17/12 1415 [facility] [place]QUE[place] [id number] Vane Zarate Psychiatrist Psychiatry 03/22/12 documented as of this encounter
--- OUTSIDE RECORDS SUMMARY | 2022-02-14 10:47 | XMS_ITS | Encounter Summary ---
:1970 Author Organization [employer] Address [address], [place] [address] Care Team Providers Name Role Phone Gagandeep Hinojosa MD Primary Care Provider Encounter Details Date Type Department Care Team Description 11/27/2013 Hospital Encounter Heart & Vascular Other nonspecific Center Echocardiogra m abnormal cardiovascular [address] system function study [place], [place] (Primar y Dx) [id number] Social History Tobacco Use Types Packs/Day Years [...] Primary documented in this encounter Care Teams Supervisor Asbestos Textile Relationship Specialty Start Date End Date Gagandeep Hinojosa MD PCP - General 05/17/[address] [place], [place] [address] Rodriguez [id number] Vane Zarate Psychiatrist Psychiatry 03/22/12 documented as of this encounter
--- OUTSIDE RECORDS SUMMARY | 2022-02-14 10:48 | XMS_ITS | Encounter Summary ---
:1970 Author Organization [employer] Address [address] [place] [address] Care Team Providers Name Role Phone Gagandeep Hinojosa MD Primary Care Provider Reason for Visit Reason Comments LAB RESULTS Encounter Details Date Type Department Care Team Description 07/18/2013 Telephone [facility] Gagandeep Hinojosa MD LAB RESULTS 1415 [facility] . 1415 [facility] [place] [address] [place] [address] [phone] (Wo rk) Social History Tobacco Use Types [...] filedocumented in this encounter Care Teams Assistant Pressman Relationship Specialty Start Date End Date Gagandeep Hinojosa MD PCP - General 05/17/12 1415 [facility] [place] [address] Vane Zarate Psychiatrist Psychiatry 03/22/12 documented as of this encounter
--- OUTSIDE RECORDS SUMMARY | 2022-02-14 10:48 | XMS_ITS | Encounter Summary ---
:1970 Author Organization [employer] Address [address] [place] [address] Care Team Providers Name Role Phone Gagandeep Hinojosa MD Primary Care Provider Reason for Visit Reason Comments Diabetes Encounter Details Date Type Department Care Team Description 03/14/2013 Office Visit Gagandeep Storm Type II or unspecified type diabetes mellitus without mention of complication, uncontrolled (Primary Dx); Romario Rubio MD Need for influenza vaccination; 14[address] [place] 1415 [facility] Coronary atherosclerosis of unspecified type of vessel, [place] or graft; [address]. Ave intermediate designer current use of insulin; [place]ig[place] [address] [place] VIGIL Long-term insulin use in typ e 2 diabetes; [phone] [id number] Unspecified essential hypertension; [phone] Tobacco use dis order; (Work) Obesity, unspecified Social History Tobacco Use Types Packs/Day Years Used Date Smoking Tobacco: Never Assessed Sex Assigned at Date Recorded Not on file documented as of this encounter Last Filed Vital Signs Vital Sign Reading Time Taken Comments Blood Pressure 122/74 03/14/2013 1:46 PM APPARATUS OPERATOR Pulse 98 03/14/2013 1:46 PM APPARATUS OPERATOR Temperature - - Respiratory Rate - - Oxygen Saturation - - Inhaled Oxygen Concentration - - Weight 105.2 kg (232 lb) 03/14/2013 1:46 PM APPARATUS OPERATOR Height - - Body Mass Index 33.29 [...] A normal value is less than 30. RATUS OPERATOR documented in this encounter Progress Notes [...] UMAR: 3 months Aspirin: yes Tobacco: yes RATUS OPERATOR documented in this encounter Plan of Treatment Not on filedocumented as of this encounter Visit Diagnoses Diagnosis Type II or unspecified type diabetes jasen litus without mention of complication, uncontrolled - Primary Need for influenza vaccination Need for prophylactic vaccination and in oculation against influenza Coronary atherosclerosis of unspecified type of vessel, [place] or graft ([facility]) Coronary atherosclerosis of unspecified type of vessel, [place] or graft intermediate designer current use of [...] unspecified documented in this encounter Care Teams Regulatory Affairs Manager Relationship Specialty Start Date End Date Gagandeep Hinojosa MD PCP - General 05/17/12 1415 [place] [id number] Vane Zarate Psychiatrist Psychiatry 03/22/12 documented as of this encounter
--- OUTSIDE RECORDS SUMMARY | 2022-02-14 10:48 | XMS_ITS | Encounter Summary ---
:1970 Author Organization [employer] Address [address] [place] [address] Care Team Providers Name Role Phone Gagandeep Hinojosa MD Primary Care Provider Encounter Details Date Type Department Care Team Description 02/14/2013 Lab Visit [place] Coronary atherosclerosis of unspecified type of vessel, [place] or graft; [address] Type II or unspecified type diabetes mellitus without mention of complication, uncontrolled [place] [address] Social History Tobacco Use Types Packs/Day Years [...] unspecified type of the resu lts vessel, [place] or graft sect ion. ([facility]C) Type II [...] (ABNORMAL) Microalb/Creat Ratio (02/14/2013 11:47 AM CDT) [facility] gist Method Time Signature Microalbumin 108.0 mg/L [...] - 02/14/2013 6:19 PM CDT Performed at [facility], [address] [place] [address] Gagandeep Hinojosa MD LAB_1 Performing Organization Address City/[facility]/ZIP Code Phon e Number HP CONVERSION [...] Direct LDL(If Needed) (02/14/2013 10:57 AM CDT) [facility] gist Method Time Signature Cholesterol 216 (H) [...] - 02/14/2013 6:03 PM CDT Performed at [facility], [address] [facility], [place] [address] Gagandeep Hinojosa MD LAB_1 Performing Organization Address City/State/ZIP Code Phon e Number HP CONVERSION documented in this encounter Visit Diagnoses Diagnosis Coronary atherosclerosis of unspecified type of vessel, [place] or graft ([facility]C) Coronary atherosclerosis of unspecified type of vessel, [place] or graft Type II or unspecified type diabetes jasen litus without mention of complication, uncontrolled documented in this encounter Care Teams Fitness Sales Consultant Relationship Specialty Start Date End Date Gagandeep Hinojosa MD PCP - General 05/17/12 1415 [facility] [place] [address] Vane Zarate Psychiatrist Psychiatry 03/22/12 documented as of this encounter
--- OUTSIDE RECORDS SUMMARY | 2022-02-14 10:48 | XMS_ITS | Encounter Summary ---
:1970 Author Organization [employer] Address [address] [place] [address] Care Team Providers Name Role Phone Gagandeep Hinojosa MD Primary Care Provider Reason for Visit Reason Comments Appt. Needed Encounter Details Date Type Department Care Team Description 07/12/2013 Telephone [employer] [facility] Gagandeep Hinojosa MD Appt. Needed 1415 [facility] . 1415 [place] [address] [place] [address] [phone] (Wo rk) Social History Tobacco Use Types Packs/Day Years Used Date Smoking Tobacco: Never Assessed Sex Assigned at Date Recorded Not on file documented as of this encounter Nursing Notes Cordelia Jerome - 07/12/2013 4:29 PM CDT 1st call LM to call [phone] to schedule overdue A1c/FL and diabetes check with Dr Hinojosa (due May). OIE documented in this encounter Plan of Treatment Not on filedocumented as of this encounter Visit Diagnoses Not on filedocumented in this encounter Care Teams Mechanical Handyman Relationship Specialty Start Date End Date Gagandeep Hinojosa MD PCP - General 05/17/12 1415 [facility] [place], [place] [address] Vane Zarate Psychiatrist Psychiatry 03/22/12 documented as of this encounter
--- OUTSIDE RECORDS SUMMARY | 2022-02-14 10:48 | XMS_ITS | Encounter Summary ---
:1970 Author Organization [employer] Address [address] [place] [address] Care Team Providers Name Role Phone Gagandeep Hinojosa MD Primary Care Provider Reason for Visit Reason Comments Medication Questions Encounter Details Date Type Department Care Team Description 03/16/2013 Telephone [facility] Gagandeep Hinojosa, Medic ation Questions Medicine [address] [facility] . 1415 [facility] [place] [facility] [place] [address] [place] [address] [phone] (Wo rk) Social History Tobacco Use Types Packs/Day Years Used Date Smoking Tobacco: Never Assessed Sex Assigned at Date Recorded Not on file documented as of this encounter Nursing Notes Judy Pittman RN - 03/20/2013 9:56 AM CST Parlor Chaperone - Phone Call Reason for call: Care [...] cover his insulin when he [facility]. Rustam agreed. Shared plan: Lev will contact [facility] pharmacy and cover the cost of Rustam's insulin for another month. I provided Rustam with Lev's contact information and he will call her in April to develop a budget for 2013. Rustam verbalized understanding and agreed with plan of care and follow up. TER TECHNICIAN Judy Pittman RN - 03/19/2013 4:48 PM CST Parlor Chaperone - Phone Call Reason for call: Care [...] in the morning. I contacted Zoie Serrano, chemical sales representative from [employer]. Zoie states she does not carry samples for the analog insulins. Per [id number], Rustam and his are over income for [...] will take to resolve. he states understanding TER TECHNICIAN Verena Padilla - 03/16/2013 4:36 PM CST [...] waiting for this to be addressed 03/19 TER TECHNICIAN Ajit Van - 03/16/2013 3:20 PM CST Patient calling about refill on medication but is inquiring if the [employer] can help him out. documented in this encounter Plan of Treatment Not on filedocumented as of this encounter Visit Diagnoses Not on filedocumented in this encounter Care Teams Web Site Developer Relationship Specialty Start Date End Date Gagandeep Hinojosa MD PCP - General 05/17/12 1415 [place] [address] Vane Zarate Psychiatrist Psychiatry 03/22/12 documented as of this encounter
--- OUTSIDE RECORDS SUMMARY | 2022-02-14 10:48 | XMS_ITS | Encounter Summary ---
:1970 Author Organization [employer] Address [address], [place] [address] Care Team Providers Name Role Phone Gagandeep Hinojosa MD Primary Care Provider Reason for Visit Reason Comments Vomiting Diarrhea Abdominal Pain Encounter Details Date Type Department Care Team Description 03/07/2013 Hospital Encounter [facility], Abdo rosalie pain, unspecified site (Primary Dx); Care Millicent Belcher MD Dizziness; [address] [place] [address]; Drive [place], [place] [address] [phone] Social History Tobacco Use Types Packs/Day Years Used Date Smoking Tobacco: Never Assessed Sex Assigned at Date Recorded Not on file documented as of this encounter Last Filed Vital Signs Vital Sign Reading Time Taken Comments Blood Pressure 122/85 03/07/2013 2:52 PM POLISHER BALANCE SCREWHEAD Pulse 97 03/07/2013 2:52 PM POLISHER BALANCE SCREWHEAD Temperature 36.3 ??C (97.3 ??F) 03/07/2013 1:17 PM POLISHER BALANCE SCREWHEAD Respiratory Rate 16 03/07/2013 2:52 PM POLISHER BALANCE SCREWHEAD Oxygen Saturation - - Inhaled Oxygen Concentration [...] 03/16/13 1214 Note Time: 03/07/131726 Status: Signed Application Development Director: Millicent Nieves MD (Physician) NAME: SHARLENE VARNER MR#: [id number] CSN: [id number] AUTHENTICATING CLINICIAN: Millicent Nieves MD CONFIRM #: [id number] LOC: 520 URGENT CARE PROGRESS NOTE DATE [...] MEDICATIONS: Reviewed. SOCIAL HISTORY: He works at [employer]. Began smoking cigarettes again. Does not drink [...] or persist, he will return for recheck. SMS:[employer] C: CONFIRM #: [id number] SHER BALANCE SCREWHEAD Zayra Orozco RN - 03/07/2013 3:26 PM CST IV removed with cannula intact per order; pressure dressing applied to site. Pt verbalized improvement in condition and decrease in nausea. Pt discharged alert and oriented. Екатерина Broderick RN - 03/07/2013 2:55 PM CST VSS. Pt denies signs of allergic reaction. Pt resting comfortably. Pt alert. Nausea resolving. IV patent. Will continue to monitor pt. SHER BALANCE SCREWHEAD Екатерина Broderick RN - 03/07/2013 2:37 PM CST Pt c/o feeling head coyle sensation, dizziness. Dr. Nieves informed. See BG result. documented in this encounter Miscellaneous Notes Miscellaneous - 03/07/2013 3:26 PM CSTNotes Recorded by Gina Ash MD on 03/07/2013 at 9:[address] Nieves review on 03/08/13. SHER BALANCE SCREWHEAD Medication History - Elvis Ellington MD - [...] RN Intravenous - 03/07/13 1437 - - SHER BALANCE SCREWHEAD documented in this encounter Plan of Treatment Not on filedocumented as of this encounter Procedures Procedure Name Priority Date/Time Associated Diagnosis Comme nts BGS NO CHARGE Routine 03/07/2013 2:35 PM Results for this POLISHER BALANCE SCREWHEAD procedure are i n the results section. ANION GAP STAT 03/07/2013 1:53 PM Results f or this POLISHER BALANCE SCREWHEAD procedure are i n the results section. COMPLETE BLOOD STAT 03/07/2013 1:53 PM Abdominal pain, Resu lts for this COUNT-W/DIFF POLISHER BALANCE SCREWHEAD unspecified site procedure a re in the results section. LIVER PANEL(HEPATIC STAT 03/07/2013 1:53 PM Abdominal pain, Results for this FUNCTION PANEL) POLISHER BALANCE SCREWHEAD unspecified site procedur e are in the results section. BASIC METABOLIC PANEL STAT 03/07/2013 1:53 PM Abdominal sesar n, Results for this POLISHER BALANCE SCREWHEAD unspecified site procedure a re in the results section. DIFFERENTIAL STAT 03/07/2013 1:53 PM Results f or this POLISHER BALANCE SCREWHEAD procedure are i n the results section. VALPROIC ACID STAT 03/07/2013 1:53 PM Abdominal pain, Resul ts for this (DEPAKENE) POLISHER BALANCE SCREWHEAD unspecified site procedure a re in the results section. LIPASE STAT 03/07/2013 1:53 PM Abdominal pain, Result s for this POLISHER BALANCE SCREWHEAD unspecified site procedure a re in the results section. OCCULT BLOOD, EXAM 1 STAT 03/07/2013 1:52 PM Abdominal pain , Results for this POLISHER BALANCE SCREWHEAD unspecified site procedure a re in the results section. URINE MICROSCOPIC STAT 03/07/2013 1:37 PM Abdominal pain, R esults for this POLISHER BALANCE SCREWHEAD unspecified site procedure a re in the results section. URINALYSIS STAT 03/07/2013 1:37 PM Abdominal pain, Result s for this ROUTINE(MICRO IF POS) POLISHER BALANCE SCREWHEAD unspecified site pr ocedure are in the results section. BGS NO CHARGE Routine 03/07/2013 1:24 PM Results for this POLISHER BALANCE SCREWHEAD procedure are i n the results section. documented in this encounter Results BGS NO CHARGE (03/07/2013 2:35 PM POLISHER BALANCE SCREWHEAD) athologist Signature Bedside Blood 147 mg/dL HP CONVERSION Glucose Test Comment: Performed at [facility], [address], [place]. [address] Specimen Anatomical Collection Method Collection Time Receive d Time (Source) Location / / Volume Laterality 03/07/2013 2:35 PM 3 2:40 POLISHER BALANCE SCREWHEAD PM POLISHER BALANCE SCREWHEAD Millicent Nieves MD LAB_1 Performing Organization Address City/State/ZIP Code Phon e Number HP CONVERSION (ABNORMAL) Differential (03/07/2013 1:53 PM POLISHER BALANCE SCREWHEAD) [facility] gist Method Time Signature Absolute 7.2 1.8 [...] Volume Laterality 03/07/2013 1:53 PM 3 1:52 POLISHER BALANCE SCREWHEAD PM POLISHER BALANCE SCREWHEAD Narrative HP CONVERSION - 03/07/2013 2:27 PM POLISHER BALANCE SCREWHEAD Performed at [facility], [address] [place] [address] Millicent Nieves MD LAB_1 Performing Organization Address [facility] Phon e Number HP CONVERSION ANION GAP (03/07/2013 1:53 PM POLISHER BALANCE SCREWHEAD) athologist Signature ANION GAP 7 0 - 16 mEq/L HP CONVERSION Specimen Anatomical Collection Method Collection Time Receive d Time (Source) Location / / Volume Laterality 03/07/2013 1:53 PM 3 1:52 POLISHER BALANCE SCREWHEAD PM POLISHER BALANCE SCREWHEAD Narrative HP CONVERSION - 03/07/2013 2:28 PM POLISHER BALANCE SCREWHEAD Performed at [facility], [address] [place] [address] Millicent Nieves MD LAB_1 Performing Organization Address [facility] Phon e Number HP CONVERSION Lipase (03/07/2013 1:53 PM POLISHER BALANCE SCREWHEAD) athologist Signature Lipase 34 5 - 70 U/L HP CONVERSION Specimen Anatomical Collection Method Collection Time Receive d Time (Source) Location / / Volume Laterality 03/07/2013 1:53 PM 3 1:52 POLISHER BALANCE SCREWHEAD PM POLISHER BALANCE SCREWHEAD Narrative HP CONVERSION - 03/07/2013 2:28 PM POLISHER BALANCE SCREWHEAD Performed at [facility], [address] [place] [address] Millicent Nieves MD LAB_1 Performing Organization Address [facility] Phon e Number HP CONVERSION Liver Panel(Hepatic Function Panel) (03/07/2013 1:53 PM POLISHER BALANCE SCREWHEAD) Patholo gist Method Time Signature Alk Phos [...] Volume Laterality 03/07/2013 1:53 PM 3 1:52 POLISHER BALANCE SCREWHEAD PM POLISHER BALANCE SCREWHEAD Narrative HP CONVERSION - 03/07/2013 2:28 PM POLISHER BALANCE SCREWHEAD Performed at [facility], [address] [place] [address] Millicent Nieves MD LAB_1 Performing Organization Address City/State/ZIP Code Phon e Number HP CONVERSION (ABNORMAL) Basic Metabolic Panel (03/07/2013 1:53 PM POLISHER BALANCE SCREWHEAD) [facility] gist Method Time Signature Creatinine Serum 0.8 [...] Volume Laterality 03/07/2013 1:53 PM 3 1:52 POLISHER BALANCE SCREWHEAD PM POLISHER BALANCE SCREWHEAD Narrative HP CONVERSION - 03/07/2013 2:28 PM POLISHER BALANCE SCREWHEAD Performed at [facility], [address] [place] [address] Millicent Nieves MD LAB_1 Performing Organization Address City/State/ZIP Code Phon e Number HP CONVERSION (ABNORMAL) Complete Blood Count W/Diff (03/07/2013 1:53 PM POLISHER BALANCE SCREWHEAD) [facility] Method Time Signature White Blood Cell 11.6 [...] Volume Laterality 03/07/2013 1:53 PM 3 1:52 POLISHER BALANCE SCREWHEAD PM POLISHER BALANCE SCREWHEAD Narrative HP CONVERSION - 03/07/2013 2:25 PM POLISHER BALANCE SCREWHEAD Performed at [facility], [address] [place] [address] Millicent Nieves MD LAB_1 Performing Organization Address City/[facility] Code Phon e Number HP CONVERSION Valproic Acid (Depakene) (03/07/2013 1:53 PM POLISHER BALANCE SCREWHEAD) [facility] Method Time Signature Date Last Dose 03/06/2013 HP CONVERSION Valproic Acid Time Last Dose 10.00 HP CONVERSION Valproic Acid Valproic 98 50 - 100 HP CONVERSION Acid/Depakene ug/mL (Valp) Specimen Anatomical Collection Method Collection Time Receive d Time (Source) Location / / Volume Laterality 03/07/2013 1:53 PM 3 6:13 POLISHER BALANCE SCREWHEAD PM POLISHER BALANCE SCREWHEAD Transcriptions 03/07/2013 3:26 PM CSTNotes Recorded by Gina Ash MD on 03/07/2013 at 9:[address] Nieves review on 03/08/13. Millicent Nieves MD LAB_1 Performing Organization Address City/[facility]/ZIP Code Phon e Number HP CONVERSION Occult Blood, Exam 1 (03/07/2013 1:52 PM POLISHER BALANCE SCREWHEAD) [facility] Method Time Signature Occult Blood, Negative Negative HP CONVERSION Stool #1 Date/Time #1 11,[id number] HP CONVERSION Specimen Anatomical Collection Method Collection Time Receive d Time (Source) Location / / Volume Laterality 03/07/2013 1:52 PM 3 1:57 POLISHER BALANCE SCREWHEAD PM POLISHER BALANCE SCREWHEAD Narrative HP CONVERSION - 03/07/2013 2:00 PM POLISHER BALANCE SCREWHEAD [place] [address] Millicent Nieves MD LAB_1 Performing Organization Address [facility] Phon e Number HP CONVERSION URINE MICROSCOPIC (03/07/2013 1:37 PM POLISHER BALANCE SCREWHEAD) athologist Signature Urine WBC 0-2 0 - 4 /HPF HP CONVERSION Urine RBC None seen 0 - 2 /HPF HP CONVERSION Specimen Anatomical Collection Method Collection Time Receive d Time (Source) Location / / Volume Laterality 03/07/2013 1:37 PM 3 1:55 POLISHER BALANCE SCREWHEAD PM POLISHER BALANCE SCREWHEAD Narrative HP CONVERSION - 03/07/2013 2:05 PM POLISHER BALANCE SCREWHEAD [place] [address] Millicent Nieves MD LAB_1 Performing Organization Address City/[facility] Phon e Number HP CONVERSION (ABNORMAL) URINALYSIS ROUTINE(MICRO IF POS) (03/07/2013 1:37 PM POLISHER BALANCE SCREWHEAD) [facility] Method Time Signature Urine Type Urine:clean HP [...] U Specific 1.015 1.005 - HP CONVERSION [place] 1.030 Urobilinogen Negative Negative HP CONVERSION Urine Eu/dL Specimen Anatomical Collection Method Collection Time Receive d Time (Source) Location / / Volume Laterality Urine: 03/07/2013 1:37 PM 3 1:55 POLISHER BALANCE SCREWHEAD PM POLISHER BALANCE SCREWHEAD Narrative HP CONVERSION - 03/07/2013 2:05 PM POLISHER BALANCE SCREWHEAD Performed at [address], [place] [address] Millicent Nieves MD LAB_1 Performing Organization Address City/[facility] Code Phon e Number HP CONVERSION BGS NO CHARGE (03/07/2013 1:24 PM POLISHER BALANCE SCREWHEAD) athologist Signature Bedside Blood 158 mg/dL HP CONVERSION Glucose Test Comment: Performed at [facility], [address] , [place]. [address] Specimen Anatomical Collection Method Collection Time Receive d Time (Source) Location / / Volume Laterality 03/07/2013 1:24 PM 3 1:30 POLISHER BALANCE SCREWHEAD PM POLISHER BALANCE SCREWHEAD Millicent Nieves MD LAB_1 Performing Organization Address City/[facility] Code Phon e Number HP CONVERSION documented [...] he has not taken any meds today. SHER BALANCE SCREWHEAD documented in this encounter Care Teams Skein Straightener Relationship Specialty Start Date End Date Gagandeep Hinojosa MD PCP - General 05/17/12 [facility] [place] [address] Vane Zarate Psychiatrsamantha Psychiatry 03/22/12 documented as of this encounter
--- OUTSIDE RECORDS SUMMARY | 2022-02-14 10:48 | XMS_ITS | Encounter Summary ---
:1970 Author Organization [employer] Address [address] [place] [address] Care Team Providers Name Role Phone Gagandeep Hinojosa MD Primary Care Provider Reason for Visit Reason Comments Treatment Plan Encounter Details Date Type Department Care Team Description 11/03/2012 Nurse Triage [facility] Gagandeep Hinojosa, Treatment Plan [address] [place] [address] 1415 [facility] [phone] [place], [place] [phone] (Wo rk) Social History Tobacco Use Types Packs/Day Years Used Date Smoking Tobacco: Never Assessed Sex Assigned at Date Recorded Not on file documented as of this encounter Nursing Notes Melanie Smith RN - 11/03/2012 7:32 AM CDT Protocol: SHOULDER [id number] Affirmative: [1] MODERATE pain (e.g. interferes with [...] on filedocumented in this encounter Care Teams Product Operations Associate Relationship Specialty Start Date End Date Gagandeep Hinojosa MD PCP - General 05/17/[address] [place] [address] [place] [address] Vane Zarate Psychiatrist Psychiatry 03/22/12 documented as of this encounter
--- OUTSIDE RECORDS SUMMARY | 2022-02-14 10:48 | XMS_ITS | Encounter Summary ---
:1970 Author Organization [employer] Address [address] [place] [address] Care Team Providers Name Role Phone Gagandeep Hinojosa MD Primary Care Provider Reason for Visit Reason Comments Care Coordination Encounter Details Date Type Department Care Team Description 02/12/2013 Telephone [place] [facility] Judy Pittman RN Care Coordination 1415 [facility] . 1415 [place] [address] [place] [address] [phone] Social History Tobacco Use Types Packs/Day Years [...] requesting a return call. Please transfer to [phone]. Checking to make sure Rustam received his insulin at [facility] in [place] and there weren't any problems with payment. udy Weber RN - 02/12/2013 3:43 PM CDT Clay Puddler - Phone Call Reason for call: Medication assistance Discussion/actions: Lev is returning my call, stating that the [employer] [facility] will be able to help Rustam with the cost of his insulin for this month. Unfortunately, [facility] does not work with [facility] and therefore will need the prescription transferred to [facility] in [place] to arrange payment. I spoke with the pharmacist at [facility] and provided a verbal order for Novolin N and Novolin R per Dr Hinojosa's orders on 02/09/13. I spoke with pharmacist at [facility] and discontinued the refill senton 02/09/13. 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 I reminded Rustam thathe is due to have his A1c checked before the end of this month and will need to have this completed before further refills. Shared plan: I provided my contact information for Rustam to call and schedule his A1c. Judy Pittman RN - 02/12/2013 2:11 PM CDT Clay Puddler - Phone Call Reason for call: Medication [...] on filedocumented in this encounter Care Teams Roving Inspector Relationship Specialty Start Date End Date Gagandeep Hinojosa MD PCP - General 05/17/12 [address] [facility] [place] [address] Vane Zarate Psychiatrist Psychiatry 03/22/12 documented as of this encounter
--- OUTSIDE RECORDS SUMMARY | 2022-02-14 10:48 | XMS_ITS | Encounter Summary ---
:1970 Author Organization [facility] Address [address] [place] [address] Care Team Providers Name Role Phone Gagandeep Hinojosa MD Primary Care Provider Reason for Visit Reason Comments Appt. Needed Encounter Details Date Type Department Care Team Description 02/06/[address] [place] Gagandeep Hinojosa MD Appt. Needed 1415 [facility] . 1415 [facility] [place] [address] [place] [address] [phone] (Wo rk) Social History Tobacco Use Types Packs/Day Years Used Date Smoking Tobacco: Never Assessed Sex Assigned at Date Recorded Not on file documented as of this encounter Plan of Treatment Not on filedocumented as of this encounter Visit Diagnoses Not on filedocumented in this encounter Care Teams Copy Chief Relationship Specialty Start Date End Date Gagandeep Hinojosa MD PCP - General 05/17/12 [address] [place] [address] Vane Zarate Psychiatrist Psychiatry 03/22/12 documented as of this encounter
--- OUTSIDE RECORDS SUMMARY | 2022-02-14 10:48 | XMS_ITS | Encounter Summary ---
:1970 Author Organization [facility] Address [address] [place] [address] Care Team Providers Name Role Phone Gagandeep Hinojosa MD Primary Care Provider Reason for Visit Reason Comments LAB RESULTS Encounter Details Date Type Department Care Team Description 02/28/2013 Telephone [facility] Gagandeep Hinojosa MD LAB RESULTS 1415 [facility] . 1415 [place] [address] [place] [address] [phone] (Wo rk) Social History Tobacco Use Types Packs/Day Years Used Date Smoking Tobacco: Never Assessed Sex Assigned at Date Recorded Not on file documented as of this encounter Nursing Notes Jud Curry RN - 02/28/2013 12:00 PM CST Reviewed lab letter with pt, appt made for discussion as per letter OR PRODUCER Yesenia Jara - 02/28/2013 11:54 AM CST Lab/Radiology Results Primary Care Provider: Gagandeep Hinojosa What test result is needed? Labs When and where was test done? [facility] on 02/14 Who ordered the test? Gagandeep Hinojosa Transferred to triage per patient request. Can be reached at [phone]. documented in this encounter Plan of Treatment Not on filedocumented as of this encounter Visit Diagnoses Not on filedocumented in this encounter Care Teams Roller Print Tender Relationship Specialty Start Date End Date Gagandeep Hinojosa MD PCP - General 05/17/12 1415 [facility] [place] [address] Vane Zarate Psychiatrist Psychiatry 03/22/12 documented as of this encounter
--- OUTSIDE RECORDS SUMMARY | 2022-02-14 10:48 | XMS_ITS | Encounter Summary ---
:1970 Author Organization [facility] Address [address], [place] [address] Care Team Providers Name Role Phone Gagandeep Hinojosa MD Primary Care Provider Reason for Visit Reason Comments Pharmacy Encounter Details Date Type Department Care Team Description 11/14/2012 Refill [place] [facility] Gagandeep Hinojosa MD Pharmacy 1415 [facility] . 1415 [facility] [place] [address] [place] [address] [phone] (Wo rk) Social History Tobacco Use Types [...] 2 days for RX to be approved. [facility] calling where pt is waiting to get [...] requesting rx Pharmacy Name & Phone #: [facility] Street [place] City: [place] Drug Name: 1ml 30 gu 8 mm short needle. Strength: unk Dose/Route/Freq: unk *ECODE documented in this encounter Plan of Treatment Not on filedocumented as of this encounter Visit Diagnoses Not on filedocumented in this encounter Care Teams Flatwork Tier Relationship Specialty Start Date End Date Gagandeep Hinojosa MD PCP - General 05/17/12 1415 [facility] [place] [address] Vane Zarate Psychiatrist Psychiatry 03/22/12 documented as of this encounter
--- OUTSIDE RECORDS SUMMARY | 2022-02-14 10:48 | XMS_ITS | Encounter Summary ---
:1970 Author Organization [employer] Address [address] [place] [address] Care Team Providers Name Role Phone Gagandeep Hinojosa MD Primary Care Provider Reason for Visit Reason Comments Care Coordination Encounter Details Date Type Department Care Team Description 02/06/2013 Telephone [facility] Judy Pittman RN Care Coordination 1415 [facility] . 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 Rustam states [...] so he is paying for his insulin [id number]. Rustam states he is managing ok at [...] requesting a return call. Please transfer to [phone]. I received notice that Rustam has been frequently utilizing the ER, with 6 visits in the past year. documented in this encounter Plan of Treatment Not on filedocumented as of this encounter Visit Diagnoses Not on filedocumented in this encounter Care Teams Director Service Relationship Specialty Start Date End Date Gagandeep Hinojosa MD PCP - General 05/17/12 1415 [facility] [place] [address] Vane Zarate Psychiatrist Psychiatry 03/22/12 documented as of this encounter
--- OUTSIDE RECORDS SUMMARY | 2022-02-14 10:48 | XMS_ITS | Encounter Summary ---
:1970 Author Organization [employer] Address [address] [address] Care Team Providers Name Role Phone Gagandeep Hinojosa MD Primary Care Provider Encounter Details Date Type Department Care Team Description 04/10/2013 Hospital Encounter Heart & Vascular Chest pain, unspecified Center Nuclear (Primary Dx) Cardiology [address] [facility] [place] [address] Social History Tobacco Use Types [...] Procedure Name Priority Date/Time Associated Diagnosis [facility] OUTREACH NUCLEAR Routine 04/10/2013 4:12 PM Chest pain, Resul ts for this STUDY ADOLESCENT PSYCHIATRIST unspecified procedure are i n the results section. documented in this encounter Results Outreach Nuclear Study (04/10/2013 4:12 PM ADOLESCENT PSYCHIATRIST) Specimen (Source) Anatomical Location Collection Method / Collectio n Time Received Time / Laterality Volume Narrative HP CONVERSION - 04/10/2013 4:12 PM ADOLESCENT PSYCHIATRIST See results in [facility]. Silverio Cabrera MD PN CARDIAC SERVICES ORDERABL ES Performing Organization Address City/State/ZIP Code Phon e Number HP CONVERSION documented in this encounter Visit Diagnoses Diagnosis Chest pain, unspecified - Primary documented in this encounter Care Teams Microbiological Lab Technician Relationship Specialty Start Date End Date Gagandeep Hinojosa MD PCP - General 05/17/12 14[address] [place] [address] Vane Zarate Psychiatrist Psychiatry 03/22/12 documented as of this encounter
--- OUTSIDE RECORDS SUMMARY | 2022-02-14 10:48 | XMS_ITS | Encounter Summary ---
:1970 Author Organization [employer] Address [address] [place] [address] Care Team Providers Name Role Phone Gagandeep Hinojosa MD Primary Care Provider Encounter Details Date Type Department Care Team Description 07/13/2013 Lab Visit [place] [facility] Type II or unspecified type diabetes mellitus without mention of complication, uncontrolled; [address] Coronary atherosclerosis of unspecified type of vessel, [place] or graft [place] [address] Social History Tobacco Use Types Packs/Day Years [...] Coronary atherosclerosis of unspecified type of vessel, [place] or graft (HR) LDL CHOLESTEROL, Routine 07/13/2013 [...] Coronary atherosclerosis of unspecified type of vessel, [place] or graft (HRC) documented in this encounter [...] Gagandeep Hinojosa MD LAB_1 Performing Organization Address [facility] Phon e Number HP CONVERSION LDL Cholesterol, Direct Measured (07/13/2013 10:39 AM CDT) athologist Signature LDL Direct 123 0 - 130 HP CONVERSION mg/dL Specimen Anatomical Collection Method Collection Time Receive d Time (Source) Location / / Volume Laterality 07/13/2013 10:39 07/13/2013 2:48 AM CDT PM CDT Narrative HP CONVERSION - 07/13/2013 6:53 PM CDT Performed at [facility], [address] [place] [address] Gagandeep Hinojosa MD LAB_1 Performing Organization Address [facility] Code Phon e Number HP CONVERSION (ABNORMAL) Hgb A1c (07/13/2013 10:39 AM CDT) athologist Signature HGB A1C 10.4 (H) 4.0 - 5.6 % HP CONVERSION Specimen Anatomical Collection Method Collection Time Receive d Time (Source) Location / / Volume Laterality 07/13/2013 10:39 07/13/2013 4:10 AM CDT PM CDT Gagandeep Hinojosa MD LAB_1 Performing Organization Address [facility] Phon e Number HP CONVERSION (ABNORMAL) Lipid Panel and Direct LDL(If Needed) (07/13/2013 10:39 AM CDT) [facility] Method Time Signature Cholesterol 197 0 - [...] - 07/13/2013 5:00 PM CDT Performed at [facility], [address] [place] [address] Gagandeep Hinojosa MD LAB_1 Performing Organization Address [facility] Phon e Number HP CONVERSION AST (07/13/2013 10:39 AM CDT) [facility] Method Time Signature Aspartate 25 0 - 45 HP CONVERSION Aminotransferase U/L Specimen Anatomical Collection Method Collection Time Receive d Time (Source) Location / / Volume Laterality 07/13/2013 10:39 07/13/2013 2:48 AM CDT PM CDT Narrative HP CONVERSION - 07/13/2013 5:00 PM CDT Performed at [facility], [address] [place] [address] Gagandeep Hinojosa MD LAB_1 Performing Organization Address City/[facility] Phon e Number HP CONVERSION documented in this encounter Visit Diagnoses Diagnosis Type II or unspecified type diabetes jasen litus without mention of complication, uncontrolled Coronary atherosclerosis of unspecified type of vessel, [place]om[place] or graft (HRC) Coronary atherosclerosis of unspecified type of vessel, [place]om[place] or graft documented in this encounter Care Teams Breast Surgeon Relationship Specialty Start Date End Date Gagandeep Hinojosa MD PCP - General 05/17/[address] [facility] [place] [address] Vane Zarate Psychiatrist Psychiatry 03/22/12 documented as of this encounter
--- OUTSIDE RECORDS SUMMARY | 2022-02-14 10:49 | XMS_ITS | Encounter Summary ---
:1970 Author Organization [employer] Address [address] [place] [address] Care Team Providers Name Role Phone CoriLilian li Homa SAL Primary Care Provider Reason for Visit Reason Comments RESULTS, TEST Encounter Details Date Type Department Care Team Description 04/07/2012 Telephone [facility] Gagandeep Hinojosa MD RESULTS, TEST 1415 [facility] . 1415 [place] [address] [place] [address] [phone] (Wo rk) Social History Tobacco Use Types [...] forwarded to scheduling dept to contact pt TING MACHINE OPERATOR TAPE RULES Gagandeep Hinojosa MD - 04/07/2012 2:18 PM CST Call pt. U/S showeed no lesions. Would refer to general surgery. Refereral done TING MACHINE OPERATOR TAPE RULES Denita Reyes, RN - 04/07/2012 2:13 PM CST US results in [facility]. To Dr. Hinojosa for interpretation. TING MACHINE OPERATOR TAPE RULES Ale Fountain - 04/07/2012 2:06 PM CST Patient states had a ultrasound done on 04-06-12 and they did not find anything and asking if he should see doctor again for more tests. TING MACHINE OPERATOR TAPE RULES documented in this encounter Plan of Treatment Not on filedocumented as of this encounter Visit Diagnoses Diagnosis Soft tissue mass - Primary Disorders of soft tissue, unspecified documented in this encounter Care Teams Orange Peel Operator Relationship Specialty Start Date End Date Lilian Persaud DO PCP - General 12/23/10 05/16/12 [address] [place] [address] Vane Zarate Psychiatrsamantha Psychiatry 03/22/12 documented as of this encounter
--- OUTSIDE RECORDS SUMMARY | 2022-02-14 10:49 | XMS_ITS | Encounter Summary ---
:1970 Author Organization [facility] Address [address] [address] Care Team Providers Name Role Phone Lilian Persaud DO Primary Care Provider Reason for Referral Specialty Diagnoses / Procedures Referred By Contact [place]er [place] [address] [place] [address] Referral ID Status Reason Start Date Expiration Date Visits Requ ested Visits Authorized Encounter Details Date Type Department Care Team Description 02/16/2012 Notes/Orders Lilian Camejo Other d isorders of lipoid metabolism; Medicine DO Coronary atherosclerosis of unspecified type of vessel, [place] or graft; [address] [place] [address] KACHINA T Type II or unspecified type diabetes jasen litus without mention of complication, uncontrolled; [address] [place], [place] ASHD (arteriosclerotic heart disease); [place] [address] History of PTCA [phone] Social History Tobacco Use Types Packs/Day Years [...] Coronary atherosclerosis of unspecified type of vessel, [place] or graft (HRC) Coronary atherosclerosis of unspecified type of vessel, [place] or graft Type II or unspecified type diabetes jasen litus without mention of complication, uncontrolled ASHD (arteriosclerotic heart disease) (H RC) Coronary atherosclerosis of unspecified type of vessel, [place] or graft History of PTCA Postsurgical percutaneous transluminal c oronary angioplasty status documented in this encounter Care Teams Precision Optics Technician Relationship Specialty Start Date End Date Lilian Persaud DO PCP - General 12/23/10 05/16/12 [address] [place] [address] documented as of this encounter
--- OUTSIDE RECORDS SUMMARY | 2022-02-14 10:49 | XMS_ITS | Encounter Summary ---
:1970 Author Organization [facility] Address [address], [place] [address] Care Team Providers Name Role Phone Gagandeep Hinojosa MD Primary Care Provider Reason for Visit Reason Comments Refill Encounter Details Date Type Department Care Team Description 07/24/2012 Refill [facility] [employer] [facility] Franck Greene MD Refill SERVICES [address] [facility] [employer] [address] [place] [address] [place] [address] (Wo rk) Social History Tobacco [...] on filedocumented in this encounter Care Teams Box Hinge And Lock Attacher Relationship Specialty Start Date End Date Gagandeep Hinojosa MD PCP - General 05/17/12 [address] [place] [address] Vane Zarate Psychiatrist Psychiatry 03/22/12 documented as of this encounter
--- OUTSIDE RECORDS SUMMARY | 2022-02-14 10:49 | XMS_ITS | Encounter Summary ---
:1970 Author Organization [employer] Address [address] [place] [address] Care Team Providers Name Role Phone Lilian Persaud DO Primary Care Provider Reason for Visit Reason Comments Care Coordination Encounter Details Date Type Department Care Team Description 03/09/2012 [facility] Lilian Persaud, Care Coordination 14[address] [facility] . [address] [place] [address] [place] [address] [phone] (Wo rk) Social History Tobacco Use Types Packs/Day Years Used Date Smoking Tobacco: Never Assessed Sex Assigned at Date Recorded Not on file documented as of this encounter Nursing Notes Judy Pittman RN - 03/14/2012 1:12 PM CST Return phone call from Tim[place]. [place] states he and his have recently returned from [place] and he is interested in care coordination. Rustam notes his BG has been elevated because he has been forced to ration his insulin due to financial constraints. Rustam knows his last A1c was high at 10.6. Rustam is currently using the generic Relion brand from [employer], but has fallen into the Medicare doughnut hole and cannot afford his insulin. Rustam is also interested in working on his diet. I scheduled an appt for care coordination on 03/22/12. I provided my contact information. Judy Pittman RN - 03/09/2012 10:06 AM CST I left a message for Timur asking for a return call with an update on his status. Please transferto [phone]. documented in this encounter Plan of Treatment Not on filedocumented as of this encounter Visit Diagnoses Not on filedocumented in this encounter Care Teams Plater Supervisor Relationship Specialty Start Date End Date Lilian Persaud DO PCP - General 12/23/10 05/16/12 [facility] [facility] [place] [address] documented as of this encounter
--- OUTSIDE RECORDS SUMMARY | 2022-02-14 10:49 | XMS_ITS | Encounter Summary ---
:1970 Author Organization [email or web address] Address [address] [place] [address] Care Team Providers Name Role Phone Gagandeep Hinojosa MD Primary Care Provider Encounter Details Date Type Department Care Team Description 05/17/2012 Lab Visit [place] [facility] Encounter for long-term [address] (current) [place] [address] medications [phone] Social History Tobacco Use Types Packs/Day Years Used Date Smoking Tobacco: Never Assessed Sex Assigned at Date Recorded Not on file documented as of this encounter Plan of Treatment Not on filedocumented as of this encounter Procedures Procedure Name Priority Date/Time Associated Diagnosis Comme nts CARNITINE FREE AND Routine 05/17/2012 10:35 Encounter for Resu lts for this TOTAL AM SPIKE MACHINE OPERATOR long-term (current) procedur e are in use of other the results medications section. COMPLETE BLOOD Routine 05/17/2012 10:35 Encounter for Results for this COUNT-W/DIFF AM SPIKE MACHINE OPERATOR long-term (current) procedur e are in use of other the results medications section. DIFFERENTIAL Routine 05/17/2012 10:35 Results for this AM SPIKE MACHINE OPERATOR procedure are i n the results section. AMYLASE Routine 05/17/2012 10:35 Encounter for Results fo r this AM SPIKE MACHINE OPERATOR long-term (current) procedur e are in use of other the results medications section. VALPROIC ACID Routine 05/17/2012 10:35 Encounter for Results f or this (DEPAKENE) AM SPIKE MACHINE OPERATOR long-term (current) procedur e are in use of other the results medications section. LIPASE Routine 05/17/2012 10:35 Encounter for Results fo r this AM SPIKE MACHINE OPERATOR long-term (current) procedur e are in use of other the results medications section. AMMONIA Routine 05/17/2012 10:35 Encounter for Results fo r this AM SPIKE MACHINE OPERATOR long-term (current) procedur e are in use of other the results medications section. ALT (SGPT) Routine 05/17/2012 10:35 Encounter for Results fo r this AM SPIKE MACHINE OPERATOR long-term (current) procedur e are in use of other the results medications section. AST Routine 05/17/2012 10:35 Encounter for Results fo r this AM SPIKE MACHINE OPERATOR long-term (current) procedur e are in use of other the results medications section. documented in this encounter Results Differential (05/17/2012 10:35 AM SPIKE MACHINE OPERATOR) athologist Signature Absolute 2.7 1.8 - 8.0 [...] / Volume Laterality 05/17/2012 10:35 05/17/2012 AM SPIKE MACHINE OPERATOR 10:35 AM SPIKE MACHINE OPERATOR Narrative HP CONVERSION - 05/17/2012 11:04 AM SPIKE MACHINE [place]PER[place] [address] Vane Zarate MD LAB_1 Performing Organization Address City/State/ZIP Code Phon e Number HP CONVERSION CARNITINE FREE AND TOTAL (05/17/2012 10:35 AM SPIKE MACHINE OPERATOR) athologist Signature Carnitine, Free 29 25 - 60 HP CONVERSION umol/L Carnitine, 41 34 - 86 HP CONVERSION Total umol/L Carnitine 12 5 - 29 HP CONVERSION Esterified umol/L Carnitine 0.4 0.1 - 1.0 HP CONVERSION Kristen/Free Ratio Specimen Anatomical Collection Method Collection Time Receive d Time (Source) Location / / Volume Laterality 05/17/2012 10:35 05/17/2012 9:11 AM SPIKE MACHINE OPERATOR PM SPIKE MACHINE OPERATOR Narrative HP CONVERSION - 05/20/2012 8:41 AM SPIKE MACHINE OPERATOR Performed at [facility] [address] [place] [address] Vane Zarate MD LAB_1 Performing Organization Address City/State/ZIP Code Phon e Number HP CONVERSION Ammonia (05/17/2012 10:35 AM SPIKE MACHINE OPERATOR) athologist Signature Ammonia, Blood 43 0 - 44 HP CONVERSION umol/L Specimen Anatomical Collection Method Collection Time Receive d Time (Source) Location / / Volume Laterality 05/17/2012 10:35 05/17/2012 3:54 AM SPIKE MACHINE OPERATOR PM SPIKE MACHINE OPERATOR Vane Zarate MD LAB_1 Performing Organization Address City/State/ZIP Code Phon e Number HP CONVERSION Valproic Acid (Depakene) (05/17/2012 10:35 AM SPIKE MACHINE OPERATOR) [facility] gist Method Time Signature Date Last Dose HP CONVERSION Valproic Acid Time Last Dose 0930 HP CONVERSION Valproic Acid Valproic 60 50 - 100 HP CONVERSION Acid/Depakene ug/mL (Valp) Specimen Anatomical Collection Method Collection Time Receive d Time (Source) Location / / Volume Laterality 05/17/2012 10:35 05/17/2012 4:01 AM SPIKE MACHINE OPERATOR PM SPIKE MACHINE OPERATOR Vane Zarate MD LAB_1 Performing Organization Address City/State/ZIP Code Phon e Number HP CONVERSION Lipase (05/17/2012 10:35 AM SPIKE MACHINE OPERATOR) athologist Signature Lipase 69 5 - 70 U/L HP CONVERSION Specimen Anatomical Collection Method Collection Time Receive d Time (Source) Location / / Volume Laterality 05/17/2012 10:35 05/17/2012 3:06 AM SPIKE MACHINE OPERATOR PM SPIKE MACHINE OPERATOR Narrative HP CONVERSION - 05/17/2012 4:16 PM SPIKE MACHINE OPERATOR Performed at [facility], [address] [place] [address] Vane Zarate MD LAB_1 Performing Organization Address City/State/ZIP Code Phon e Number HP CONVERSION Amylase (05/17/2012 10:35 AM SPIKE MACHINE OPERATOR) athologist Signature Amylase Serum 40 25 - 115 HP CONVERSION U/L Specimen Anatomical Collection Method Collection Time Receive d Time (Source) Location / / Volume Laterality 05/17/2012 10:35 05/17/2012 3:06 AM SPIKE MACHINE OPERATOR PM SPIKE MACHINE OPERATOR Narrative HP CONVERSION - 05/17/2012 4:16 PM SPIKE MACHINE OPERATOR Performed at [facility], [address] [place] [address] Vane Zarate MD LAB_1 Performing Organization Address [facility] Code Phon e Number HP CONVERSION ALT (SGPT) (05/17/2012 10:35 AM SPIKE MACHINE OPERATOR) [facility] Method Time Signature Alanine 38 4 - 55 HP CONVERSION Aminotransferase U/L Specimen Anatomical Collection Method Collection Time Receive d Time (Source) Location / / Volume Laterality 05/17/2012 10:35 05/17/2012 3:06 AM SPIKE MACHINE OPERATOR PM SPIKE MACHINE OPERATOR Narrative HP CONVERSION - 05/17/2012 4:16 PM SPIKE MACHINE OPERATOR Performed at [facility], [address] [place] [address] Vane Zarate MD LAB_1 Performing Organization Address [facility] Phon e Number HP CONVERSION AST (05/17/2012 10:35 AM SPIKE MACHINE OPERATOR) [facility] Method Time Signature Aspartate 32 0 - 45 HP CONVERSION Aminotransferase U/L Specimen Anatomical Collection Method Collection Time Receive d Time (Source) Location / / Volume Laterality 05/17/2012 10:35 05/17/2012 3:06 AM SPIKE MACHINE OPERATOR PM SPIKE MACHINE OPERATOR Narrative HP CONVERSION - 05/17/2012 4:16 PM SPIKE MACHINE OPERATOR Performed at [facility], [address] [place] [address] Vane Zarate MD LAB_1 Performing Organization Address [facility] Phon e Number HP CONVERSION Hemogram/Plts/Diff (05/17/2012 10:35 AM SPIKE MACHINE OPERATOR) P athologist Signature White Blood Cell 6.7 [...] / Volume Laterality 05/17/2012 10:35 05/17/2012 AM SPIKE MACHINE OPERATOR 10:35 AM SPIKE MACHINE OPERATOR Narrative HP CONVERSION - 05/17/2012 11:04 AM SPIKE MACHINE OPERATOR Performed at [facility], [address] [place] [address] Zarate at [phone], 05/20/2012,09: 43, by DANNY Vane Zarate MD LAB_1 Performing Organization Address City/State/ZIP Code Phon e Number HP CONVERSION documented in this encounter Visit Diagnoses Diagnosis Encounter for long-term (current) use of other medications documented in this encounter Care Teams Venetian Blind Assembler Relationship Specialty Start Date End Date Gagandeep Hinojosa MD PCP - General 05/17/[address] [place] [address] [place] [id number] Vane Zarate Psychiatrist Psychiatry 03/22/12 documented as of this encounter
--- OUTSIDE RECORDS SUMMARY | 2022-02-14 10:49 | XMS_ITS | Encounter Summary ---
:1970 Author Organization [facility] Address [address] [place] [address] Care Team Providers Name Role Phone Gagandeep Hinojosa MD Primary Care Provider Encounter Details Date Type Department Care Team Description 10/30/2012 Notes/Orders [facility] Estevan Isaacs MD Cardiology [address] [place] [address] [phone] Social History Tobacco Use Types Packs/Day Years Used Date Smoking Tobacco: Never Assessed Sex Assigned at Date Recorded Not on file documented as of this encounter Plan of Treatment Not on filedocumented as of this encounter Visit Diagnoses Not on filedocumented in this encounter Care Teams Spearer Relationship Specialty Start Date End Date Gagandeep Hinojosa MD PCP - General 05/17/12 [address] [place] [address] Vane Zarate Psychiatrist Psychiatry 03/22/12 documented as of this encounter
--- OUTSIDE RECORDS SUMMARY | 2022-02-14 10:49 | XMS_ITS | Encounter Summary ---
:1970 Author Organization [employer] Address [address] [place] [address] Care Team Providers Name Role Phone Gagandeep Hinojosa MD Primary Care Provider Reason for Visit Reason Comments Diabetes Encounter Details Date Type Department Care Team Description 05/24/2012 Telephone [place] [facility] Judy Pittman RN Diabetes 1415 [facility] . [address] [facility] [place] [address] [place] [address] [phone] Social History Tobacco Use Types Packs/Day Years Used Date Smoking Tobacco: Never Assessed Sex Assigned at Date Recorded Not on file documented as of this encounter Nursing Notes Judy Pittman RN - 05/24/2012 2:15 PM CST RN Data Power Consultant - Diabetes Phone Follow-Up Current diabetes medication [...] part-time job. Rustam has been over to [employer], they have set up with some temporary [...] on filedocumented in this encounter Care Teams Machine Sprayer Relationship Specialty Start Date End Date Gagandeep Hinojosa MD PCP - General 05/17/12 [facility] [place] [address] Vane Zarate Psychiatrist Psychiatry 03/22/12 documented as of this encounter
--- OUTSIDE RECORDS SUMMARY | 2022-02-14 10:49 | XMS_ITS | Encounter Summary ---
:1970 Author Organization [facility] Address [address] [address] Care Team Providers Name Role Phone Cori, Lilian Luther DO Primary Care Provider Encounter Details Date Type Department Care Team Description 11/10/2011 Hospital Encounter Heart & Vascular Chest pain, unspecified; Center Nuclear Cor athrscl-u ns vessel Cardiology [address] [facility] [place] [address] Social History Tobacco Use Types [...] resul ts unspecified type of section. vessel, platinum or graft (HRC) documented in this encounter [...] Coronary atherosclerosis of unspecified type of vessel, platinum or graft (HRC) Coronary atherosclerosis of unspecified type of vessel, platinum or graft documented in this encounter Care Teams Entry Level Installation Technician Relationship Specialty Start Date End Date Lilian Persaud DO PCP - General 12/23/10 05/16/12 [address] [place] [address] documented as of this encounter
--- OUTSIDE RECORDS SUMMARY | 2022-02-14 10:49 | XMS_ITS | Encounter Summary ---
:1970 Author Organization [facility] Address [address] [place] [address] Care Team Providers Name Role Phone Gagandeep Hinojosa MD Primary Care Provider Reason for Visit Reason Comments Diabetes Encounter Details Date Type Department Care Team Description 05/17/2012 Office Visit Gagandeep Storm Type II or unspecified type diabetes mellitus without mention of complication, uncontrolled (Primary Dx); Romario Rubio MD Proteinuria; [address] Unspecified essential hypert ension; [place] [address] Other and unspecified hyperlipidemia; [phone] [place] [address] Tobacco use disorder; [phone] Obesity, unspec ified (Work) Social History Tobacco Use Types Packs/Day Years Used Date Smoking Tobacco: Never Assessed Sex Assigned at Date Recorded Not on file documented as of this encounter Last Filed Vital Signs Vital Sign Reading Time Taken Comments Blood Pressure 139/97 05/17/2012 11:03 AM SUPERVISOR ASPHALT PAVING omron Pulse 84 05/17/2012 10:54 AM SUPERVISOR [employer]ING Temperature - - Respiratory Rate - - Oxygen Saturation - - Inhaled Oxygen Concentration - - Weight 104.8 kg (231 lb) 05/17/2012 10:54 AM SUPERVISOR [employer]ING Height 177.8 cm (5' 10) 05/17/2012 10:54 AM SUPERVISOR [employer]ING Body Mass Index 33.15 05/17/2012 10:54 AM SUPERVISOR [employer]AVING documented in this encounter Patient Instructions Patient [...] A normal value is less than 30. RVISOR ASPHALT PAVING documented in this encounter Progress Notes Gagandeep [...] unspecified documented in this encounter Care Teams Internal Controls Consultant Relationship Specialty Start Date End Date Gagandeep Hinojosa MD PCP - General 05/17/12 14[address] [facility] [place] [address] Vane Zarate Psychiatrist Psychiatry 03/22/12 documented as of this encounter
--- OUTSIDE RECORDS SUMMARY | 2022-02-14 10:49 | XMS_ITS | Encounter Summary ---
:1970 Author Organization [employer] Address [address] [place] [address] Care Team Providers Name Role Phone Gagandeep Hinojosa MD Primary Care Provider Reason for Visit Reason Comments Care Coordination Encounter Details Date Type Department Care Team Description 05/02/2012 Telephone [facility] Lilian Persaud DO Care Coordination 14[address] [facility] . [address] [place] [address] [place] [address] [phone] (Wo rk) Social History Tobacco Use Types [...] Care Transitions: Timur is enrolled in health group home: yes, Candidate? yes Number of active medications in EPIC:Assessment: The problem list in EPIC was updated: yes Health Maintenance was reviewed and updated: yes Timur is failing clinical markers for the following health condition(s): Diabetes The patient is due for: Updated labwork, labs pre-entered yes Plan: It is determined that Timur will benefit from the following: Referral to Brake Operator yes This encounter is routed to the [...] uncontrolled documented in this encounter Care Teams Tanner Rotary Drum Continuous Process Relationship Specialty Start Date End Date Gagandeep Hinojosa MD PCP - General 05/17/12 [address] [place] [address] Vane Zarate Psychiatrist Psychiatry 03/22/12 documented as of this encounter
--- OUTSIDE RECORDS SUMMARY | 2022-02-14 10:49 | XMS_ITS | Encounter Summary ---
:1970 Author Organization [facility] Address [address] [place] [address] Care Team Providers Name Role Phone Gagandeep Hinojosa MD Primary Care Provider Encounter Details Date Type Department Care Team Description 05/17/2012 Lab Visit [place] [facility] Type II or unspecified type 14[address] [facility] . diabetes mellitus without [place] [address] mention of complication, uncontrolled Social History Tobacco Use Types Packs/Day Years Used Date Smoking Tobacco: Never Assessed Sex Assigned at Date Recorded Not on file documented as of this encounter Plan of Treatment Not on filedocumented as of this encounter Procedures Procedure Name Priority Date/Time Associated Diagnosis Comme nts HGB A1C Routine 05/17/2012 10:35 AM Type II or unspecifie d Results for this COMPENSATION CONSULTANT type diabetes mellitus proce dure are in without mention of the resul ts complication, section. uncontrolled (HRC) documented in this encounter Results (ABNORMAL) Hgb A1c (05/17/2012 10:35 AM COMPENSATION CONSULTANT) P athologist Signature HGB A1C 10.2 (H) 0.0 - 6.0 % HP CONVERSION Specimen Anatomical Collection Method Collection Time Receive d Time (Source) Location / / Volume Laterality 05/17/2012 10:35 05/17/2012 4:14 AM COMPENSATION CONSULTANT PM COMPENSATION CONSULTANT Gaganedep Hinojosa MD LAB_1 Performing Organization Address City/State/ZIP Code Phon e Number HP CONVERSION documented in this encounter Visit Diagnoses Diagnosis Type II or unspecified type diabetes jasen litus without mention of complication, uncontrolled documented in this encounter Care Teams Police Patrol Officer Relationship Specialty Start Date End Date Gagandeep Hinojosa MD PCP - General 05/17/12 1415 [facility] [place] [address] Vane Zarate Psychiatrist Psychiatry 03/22/12 documented as of this encounter
--- OUTSIDE RECORDS SUMMARY | 2022-02-14 10:49 | XMS_ITS | Encounter Summary ---
:1970 Author Organization [employer] Address [address] [place] [address] Care Team Providers Name Role Phone Lilian Persaud DO Primary Care Provider Encounter Details Date Type Department Care Team Description 02/01/2012 Lab Visit [place] [facility] Type II or unspecified type 14[address] [facility] . diabetes mellitus without [place] [address] mention of complication, uncontrolled Social History Tobacco [...] (ABNORMAL) Microalb/Creat Ratio (02/01/2012 12:05 PM CDT) [facility] Method Time Signature Microalbumin [...] Homa Cori SAL LAB_1 Performing Organization Address [facility] Phon e Number HP CONVERSION documented in this encounter Visit Diagnoses Diagnosis Type II or unspecified type diabetes jasen litus without mention of complication, uncontrolled documented in this encounter Care Teams Assistant Professor Of Life Sciences Relationship Specialty Start Date End Date Lilian Persaud DO PCP - General 12/23/10 05/16/12 [address] [place] [address] documented as of this encounter
--- OUTSIDE RECORDS SUMMARY | 2022-02-14 10:49 | XMS_ITS | Encounter Summary ---
:1970 Author Organization [facility] Address [address] [place] [address] Care Team Providers Name Role Phone Lilian Persaud DO Primary Care Provider Reason for Visit Reason Comments Appt. Needed Encounter Details Date Type Department Care Team Description 11/16/2011 Telephone [facility] Lilian Persaud DO Appt. Needed [address] [facility] . [address] [place] [address] [place] [address] [phone] (Wo rk) Social History Tobacco Use Types [...] on filedocumented in this encounter Care Teams Youth Care Professional Relationship Specialty Start Date End Date Lilian Persaud DO PCP - General 12/23/10 05/16/12 [address] [facility] [place] [address] documented as of this encounter
--- OUTSIDE RECORDS SUMMARY | 2022-02-14 10:49 | XMS_ITS | Encounter Summary ---
:1970 Author Organization [employer] Address [address] [place] [address] Care Team Providers Name Role Phone Lilian Persaud DO Primary Care Provider Reason for Visit Reason Comments [facility] Enrollment Encounter Details Date Type Department Care Team Description 03/22/2012 Nursing Visit Corby Reynolds Bipolar I d isorder, most recent episode (or current) unspecified; Medicine Type II or unspecified type diabetes mellitus without mention of complication, uncontrolled; [address] S/P angioplasty [place] stent [place] [address] Social History Tobacco Use Types Packs/Day Years Used Date Smoking Tobacco: Never Assessed Sex Assigned at Date Recorded Not on file documented as of this encounter Progress Notes Judy Pittman RN - 03/22/2012 4:28 PM CST Care Coordination Visit Pt: Timur Krishnamurthy Referred by: Lilian Persaud DO Reason for referral: [facility] Enrollment and Care Coordination Family/social support: Rustam [...] costs now that he has reached the [facility].Rustam has been checking his BG tid since [...] his diabetes/heart health because of his previous FL and subsequent stent placement. Rustam currently sees a psychiatrist for his medication related to dx Bipolar Disorder. Rustam states that the Depakote and Risperdal both increase his BG. Referrals/recommended resources: I will check into medication resources including the [facility] and[facility]. Patient barrier(s) to learning identified: Finance and Emotional. SHARED PLAN: Rustam agreed to [facility] Enrollment and signed the paperwork. Rustam also completed the verbal disclosure form for [facility] and [facility] so [...] Shopping Guide, Healthy Snacks, and My Food Meat Press Operator. I reviewed how managing CHO intake and [...] status documented in this encounter Care Teams Scoop Driver Relationship Specialty Start Date End Date Lilian Persaud DO PCP - General 12/23/10 05/16/12 [address] [place] [address] Vane Zarate Psychiatrsamantha Psychiatry 03/22/12 documented as of this encounter
--- OUTSIDE RECORDS SUMMARY | 2022-02-14 10:49 | XMS_ITS | Encounter Summary ---
:1970 Author Organization [employer] Address [address] [place] [address] Care Team Providers Name Role Phone Lilian Persaud DO Primary Care Provider Reason for Visit Reason Comments Abscess Encounter Details Date Type Department Care Team Description 04/06/2012 Office Visit Gagandeep Storm Mass on back (Primary Medicine MD Joanne Dx) [facility] [address] [place] [address] [address] [phone] [place], [place] [address] Social History Tobacco Use [...] He was seen in urgent care at [place] about a week or so ago and [...] 02/04/2012 ??? LFTs abnormal [790.6CT] 02/02/2012 ??? MA, old [412BB] 09/16/2011 ??? History of PTCA [...] 09/15/2005 Class: Chronic Overview Note: LW Onset: 05Atm10 FAMILY HISTORY OR SICK CONTACTS : No [...] lump documented in this encounter Care Teams Prosthetic Assistant Relationship Specialty Start Date End Date Lilian Persaud DO PCP - General 12/23/10 05/16/12 [address] [place] [address] Vane Zarate Psychiatrsamantha Psychiatry 03/22/12 documented as of this encounter
--- OUTSIDE RECORDS SUMMARY | 2022-02-14 10:49 | XMS_ITS | Encounter Summary ---
:1970 Author Organization [facility] Address [address] [place] [address] Care Team Providers Name Role Phone Gagandeep Hinojosa MD Primary Care Provider Reason for Visit Reason Comments Post Hospital Discharge Follow Up Encounter Details Date Type Department Care Team Description 10/28/2012 Telephone [facility] Gagandeep Hinojosa, Post Hospital Discharge Medicine MD Follow Up 1415 [facility] . [address] [place] [address] [place] [address] [phone] (Wo rk) Social History Tobacco Use Types [...] on filedocumented in this encounter Care Teams Relocation Commissioner Relationship Specialty Start Date End Date Gagandeep Hinojosa MD PCP - General 05/17/12 1415 [place], [place] [address] Vane Zarate Psychiatrist Psychiatry 03/22/12 documented as of this encounter
--- OUTSIDE RECORDS SUMMARY | 2022-02-14 10:49 | XMS_ITS | Encounter Summary ---
:1970 Author [facility] Address [address] [place] [address] Care Team Providers Name Role Phone Lilian Persaud DO Primary Care Provider Reason for Visit Reason Comments Diabetes Encounter Details Date Type Department Care Team Description 04/05/2012 Telephone [place] Judy Pittman RN Diabetes [address] [facility] . [address] [facility] [place] [place] [address] [place] [address] [phone] Social History Tobacco Use Types Packs/Day Years Used Date Smoking Tobacco: Never Assessed Sex Assigned at Date Recorded Not on file documented as of this encounter Nursing Notes Lilian Persaud DO - 04/05/2012 4:56 PM CST agree with plan.Looks good! Judy Villegas RN - 04/05/2012 2:27 PM CST RN Yard Demurrage Clerk - Diabetes Phone Follow-Up Current diabetes medication regimen: Novolin R 76 units bid before meals Novolin N 76 units bid before meals CURRENT GLUCOSE PATTERNS: Before breakfast: 157 - 167 Before dinner: 181 - 222 2 hours postmeal: 172 - 210 Hypoglycemia (previous two weeks): none Assessment/education: Rustam is calling with an update on his diabetes. He did connect with the [employer] [facility] and they were able to help him with his insulin costs through the end of the year. Rustam was very thankful. Rustam states he has been taking his insulin as directed now that cost is no longer a barrier. Rustam has been working hard to monitor his CHO intake and states he has been doing pretty well with staying at 4 choices per meal with 1-2 choices for snacks. Rustam is trying to eat healthier choices including more whole grains and protein choices. Rustam continues to go to the walking track daily. He has been walking 1-2 miles daily. However, yesterday while walking Rustam experienced a sharp, stabbing pain in his low back. Rustam rated the pain an8/10 stating that the pain was sudden, making him stop walking so he could catch his breath. The pain resolved quickly once he stopped walking. The pain did not radiate down his leg/s, rather felt likea line of pain across his low back. The same pain occurred again today after walking about 1 mile. Rustam stopped walking and the pain resolved. Rustam states he always stretches before walking. Shared plan: Continue insulin as directed. Continue SMBG tid. Continue walking, but if the low back pain reoccurs or worsens Rustam should call the [facility] for an appt. Follow up by phone in 2 weeks. Call if sx of hypoglycemia or glucose readings < 70 mg/dL. Rustam verbalized understanding and agreed with plan of care and follow up. documented in this encounter Plan of Treatment Not on filedocumented as of this encounter Visit Diagnoses Not on filedocumented in this encounter Care Teams Sack Filler Relationship Specialty Start Date End Date Lilian Persaud DO PCP - General 12/23/10 05/16/12 [address] [place] [address] [facility] 03/22/12 documented as of this encounter
--- OUTSIDE RECORDS SUMMARY | 2022-02-14 10:49 | XMS_ITS | Encounter Summary ---
:1970 Author Organization [facility] Address [address] [place] [address] Care Team Providers Name Role Phone Lilian Persaud DO Primary Care Provider Reason for Visit Reason Comments CYST Encounter Details Date Type Department Care Team Description 04/05/2012 Nurse Triage [facility] Lilian Persaud, CYST [address] [address] [place] [address] [place] [address] [phone] (Wo rk) Social History Tobacco Use Types Packs/Day Years Used Date Smoking Tobacco: Never Assessed Sex Assigned at Date Recorded Not on file documented as of this encounter Nursing Notes Yoana Riley RN - 04/05/2012 8:58 PM CST Protocol: SKIN LUMP OR LOCALIZED [id number] Affirmative: [1] Swelling is painful to touch AND [2] no fever Disposition of See Physician Within 24 Hours suggested. Patient calling. Was seen at [facility] last week for infected sabascious cyst on [...] on filedocumented in this encounter Care Teams Knuckle Bender Relationship Specialty Start Date End Date Lilian Persaud DO PCP - General 12/23/10 05/16/12 [address] [place] [place] [address] [facility]rs[facility] Psychiatry 03/22/12 documented as of this encounter
--- OUTSIDE RECORDS SUMMARY | 2022-02-14 10:49 | XMS_ITS | Encounter Summary ---
:1970 Author Organization [facility] Address [address] [place] [address] Care Team Providers Name Role Phone Lilian Persaud DO Primary Care Provider Reason for Visit Reason Comments Questions Encounter Details Date Type Department Care Team Description 03/14/2012 Telephone [facility] Lilian Persaud, DO Questions [address] [facility] . [address] [place] [address] [place] [address] [phone] (Wo rk) Social History Tobacco Use Types Packs/Day Years Used Date Smoking Tobacco: Never Assessed Sex Assigned at Date Recorded Not on file documented as of this encounter Nursing Notes Judy Pittman RN - 03/14/2012 3:57 PM CST Return phone call to Rustam. Rustam explained that he has been taking his Humulin N 76 units and Humulin R 76 units bid before meals for the past week. He states that his BG is gradually improving. Rustamis checking his BG about once a day. This morning his fasting blood sugar was 181. Rustam is hoping his BG will continue to improve now that he is taking his insulin as prescribed. Rustam received a lab results letter from Dr Persaud and he knows he is due for follow up, but he doesn't think he can afford the office visit co-pay in addition to his insulin. I did explain Rustam's situation with Dr Persaud. She is aware that Rustam is coming in for care coordination on 03/22/12. Rustam agrees to check his BG tid and record the results for the next week until our visit on 03/22/12. We will discuss Rustam's needs including financial resources, diabetes, and diet. Based on that visit, Dr Persaud will determine when Rustam should schedule his next follow up visit. Rustam has my contact information. He agreed to call the [facility] for any sx. Rustam verbalized understanding and agreed with plan of care and follow up. L HANGER Brielle Meza RN - 03/14/2012 1:45 PM CST Patient calling to ask if his visit with his Paperboard Machine Operator on 03/22/12 qualifies as a visit with Dr. Persaud, as he is due for a follow-up visit with her. His financial situation is very difficult at this time. He stated his sugars are coming down slowly since his labs were done 02/01/12. Told patient either myself or his Paperboard Machine Operator would return a call to him regarding this issue. Patient comfortable with this plan. L HANGER Freya Mukherjee - 03/14/2012 11:58 AM CST pt states he received letter from Dr. Persaud. pt is wondering if Dr. Persaud would like to see him to follow up. Please call to discuss. L HANGER documented in this encounter Plan of Treatment Not on filedocumented as of this encounter Visit Diagnoses Not on filedocumented in this encounter Care Teams Composite Layup Worker Relationship Specialty Start Date End Date Lilian Persaud DO PCP - General 12/23/10 05/16/12 [address] [place] [address] documented as of this encounter
--- OUTSIDE RECORDS SUMMARY | 2022-02-14 10:49 | XMS_ITS | Encounter Summary ---
:1970 Author Organization [facility] Address [address] [place] [address] Care Team Providers Name Role Phone Lilian Persaud DO Primary Care Provider Encounter Details Date Type Department Care Team Description 02/01/2012 Lab Visit [place] [facility] Coronary atherosclerosis of unspecified type of vessel, jena or graft; [address] . Other disorders of lipoid me tabolism; [place] [address] Nonspecific abnormal results of liver function study; [phone] S/P angioplasty with stent Social History Tobacco [...] he is taking. Is he taking gemfibrozil? MACHINE OPERATOR Miscellaneous - 06/04/2016 1:59 PM CSTNotes Recorded by Stevenson Greene MD on 02/02/2012 at 2:02 PMPlease verify what he is taking. Is he taking gemfibrozil? MACHINE OPERATOR Miscellaneous - 06/04/2016 1:59 PM CSTNotes Recorded by Stevenson Greene MD on 02/02/2012 at 2:02 PMPlease verify what he is taking. Is he taking gemfibrozil? MACHINE OPERATOR Miscellaneous - 06/04/2016 1:59 PM CSTNotes Recorded by Stevenson Greene MD on 02/02/2012 at 2:02 PMPlease verify what he is taking. Is he taking gemfibrozil? MACHINE OPERATOR documented in this encounter Plan of Treatment Not on filedocumented as of this encounter Procedures Procedure Name Priority Date/Time Associated Diagnosis Comme nts LIPID PANEL AND Routine 02/01/2012 12:00 Coronary Results for this DIRECT LDL(IF PM CDT atherosclerosis of procedur e are in NEEDED) unspecified type of the resu lts vessel, jena or graft sect ion. (HRC) Other disorders of lipoid metabolis m (HRC) Nonspecific abnormal results of liver function study S/P angioplasty with stent ALT (SGPT) Routine 02/01/2012 12:00 Coronary Results for this PM CDT atherosclerosis of procedure are in unspecified type of the resu lts vessel, jena or graft sect ion. (HRC) Other disorders of lipoid metabolis m (HRC) Nonspecific abnormal results of liver function study S/P angioplasty with stent AST Routine 02/01/2012 12:00 Coronary Results for this PM CDT atherosclerosis of procedure are in unspecified type of the resu lts vessel, jena or graft sect ion. (HRC) Other disorders of lipoid metabolis m (HRC) Nonspecific abnormal results of liver function study S/P angioplasty with stent CK, TOTAL Routine 02/01/2012 12:00 Coronary Results for this PM CDT atherosclerosis of procedure are in unspecified type of the resu lts vessel, jena or graft sect ion. (HRC) Other disorders [...] - 02/01/2012 4:14 PM CDT Performed at [facility]3], [address] [place] [address] Transcriptions 06/04/2016 1:59 PM CSTNotes Recorded by Stevenson Greene MD on 02/02/2012 at 2:02 PMPlease verify what he is taking. Is he taking gemfibrozil? Stevenson Greene MD LAB_1 Performing Organization Address [facility] Phon e Number HP CONVERSION (ABNORMAL) ALT (SGPT) (02/01/2012 12:00 PM CDT) [facility] Method Time Signature Alanine 73 (H) 4 - 55 HP CONVERSION Aminotransferase U/L Specimen Anatomical Collection Method Collection Time Receive d Time (Source) Location / / Volume Laterality 02/01/2012 12:00 02/01/2012 3:05 PM CDT PM CDT Narrative HP CONVERSION - 02/01/2012 4:14 PM CDT Performed at [facility]3], [address] [place] [address] Transcriptions 06/04/2016 1:59 PM CSTNotes Recorded by Stevenson Greene MD on 02/02/2012 at 2:02 PMPlease verify what he is taking. Is he taking gemfibrozil? Stevenson Greene MD LAB_1 Performing Organization Address City/[facility] Phon e Number HP CONVERSION (ABNORMAL) AST (02/01/2012 12:00 PM CDT) [facility] Method Time Signature Aspartate 55 (H) 0 - 45 HP CONVERSION Aminotransferase U/L Specimen Anatomical Collection Method Collection Time Receive d Time (Source) Location / / Volume Laterality 02/01/2012 12:00 02/01/2012 3:05 PM CDT PM CDT Narrative HP CONVERSION - 02/01/2012 4:14 PM CDT Performed at [facility]3], [address] [place] [address] Transcriptions 06/04/2016 1:59 PM CSTNotes Recorded by Stevenson Greene MD on 02/02/2012 at 2:02 PMPlease verify what he is taking. Is he taking gemfibrozil? Stevenson Greene MD LAB_1 Performing Organization Address City/[facility] Phon e Number HP CONVERSION (ABNORMAL) Lipid Panel and Direct LDL(If Needed) (02/01/2012 12:00 PM CDT) [facility] gist Method Time Signature Cholesterol 203 [...] - 02/01/2012 4:14 PM CDT Performed at [facility]3], [address] [place] [address] Transcriptions 06/04/2016 1:59 PM CSTNotes Recorded by Stevenson Greene MD on 02/02/2012 at 2:02 PMPlease verify what he is taking. Is he taking gemfibrozil? Stevenson Greene MD LAB_1 Performing Organization Address [facility] Phon e Number HP CONVERSION documented in this encounter Visit Diagnoses Diagnosis Coronary atherosclerosis of unspecified type of vessel, jena or graft (HRC) Coronary atherosclerosis of unspecified type of vessel, jena or graft 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 Nonspecific abnormal results of liver fu nction study S/P angioplasty with stent Postsurgical percutaneous transluminal c oronary angioplasty status documented in this encounter Care Teams Scheduler Relationship Specialty Start Date End Date Lilian Persaud DO PCP - General 12/23/10 05/16/12 [address] [place] [place] [address] documented as of this encounter
--- OUTSIDE RECORDS SUMMARY | 2022-02-14 10:49 | XMS_ITS | Encounter Summary ---
:1970 Author Organization [facility] Address [address] [place] [address] Care Team Providers Name Role Phone Lilian Persaud DO Primary Care Provider Reason for Visit Reason Comments Diabetes Encounter Details Date Type Department Care Team Description 03/29/2012 [facility] Lilian Persaud DO Diabetes [address] [facility] . [address] [place] [address] [place] [address] [phone] (Wo rk) Social History Tobacco Use Types Packs/Day Years Used Date Smoking Tobacco: Never Assessed Sex Assigned at Date Recorded Not on file documented as of this encounter Nursing Notes Judy Pittman RN - 03/29/2012 10:42 AM CST Left a message for Rustam for a return call. Please transfer to [phone]. RN Implementation Specialist Payroll - Diabetes Phone Follow-Up Current diabetes medication [...] his last visit, but he did go [id number] yesterday morning. He thinks the increase in [...] follow up appt. I printed off the [employer] Patient Assistance application to complete at the follow up visit. Rustam verbalized understanding and agreed with plan of care and follow up. documented in this encounter Plan of Treatment Not on filedocumented as of this encounter Visit Diagnoses Not on filedocumented in this encounter Care Teams Admissions Rn Relationship Specialty Start Date End Date Lilian Persaud DO PCP - General 12/23/10 05/16/12 [address] [place] [place] [address] [facility]rs[facility] Psychiatry 03/22/12 documented as of this encounter
--- OUTSIDE RECORDS SUMMARY | 2022-02-14 10:49 | XMS_ITS | Encounter Summary ---
:1970 Author Organization [facility] Address [address] [place] [address] Care Team Providers Name Role Phone Lilian Persaud DO Primary Care Provider Reason for Visit Reason Comments Appt. Needed Encounter Details Date Type Department Care Team Description 01/25/2012 Telephone [facility] Lilian Persaud DO Appt. Needed [address] [facility] . [address] [address] [place] [address] [place] [address] [phone] (Wo rk) Social History Tobacco Use Types [...] filedocumented in this encounter Care Teams Business Systems Advisor Relationship Specialty Start Date End Date Lilian Persaud DO PCP - General 12/23/10 05/16/12 [facility] [facility] [place] [address] documented as of this encounter
--- OUTSIDE RECORDS SUMMARY | 2022-02-14 10:49 | XMS_ITS | Encounter Summary ---
:1970 Author Organization [facility] Address [address] [place] [address] Care Team Providers Name Role Phone Lilian Persaud DO Primary Care Provider Reason for Visit Reason Comments Refill Encounter Details Date Type Department Care Team Description 05/04/2012 Refill [facility] Lilian Persaud, Refill [address] [address] [place] [address] [place] [address] [phone] (Wo rk) Social History Tobacco Use Types [...] User: DENITA REYES Appt scheduled for 05/09/12. NESS DEVELOPMENT RECRUITER Cordelia Leyva RN - 05/05/2012 9:26 AM CST last OV 02/01/12. Plan was to see patient and have labs done in 3 months. Left message to call back to schedule appt. documented in this encounter Plan of Treatment Not on filedocumented as of this encounter Visit Diagnoses Not on filedocumented in this encounter Care Teams Marine Plumber Relationship Specialty Start Date End Date Lilian Persaud DO PCP - General 12/23/10 05/16/12 [address] [place] [address] V[facility] Zarate Psychiatrsamantha Psychiatry 03/22/12 documented as of this encounter
--- OUTSIDE RECORDS SUMMARY | 2022-02-14 10:49 | XMS_ITS | Encounter Summary ---
:1970 Author Organization [facility] Address [address] [place] [address] Care Team Providers Name Role Phone Lilian Persaud DO Primary Care Provider Encounter Details Date Type Department Care Team Description 05/08/2012 Notes/Orders Gagandeep Storm Type II or unspecified Medicine MD Joanne type diabetes mellitus [facility] [facility] . [address] [facility] without mention of [place] [address] Marlena complication, [place] [phone] uncontrolled (Primary [phone] Dx) (Work) Social History Tobacco Use Types Packs/Day Years Used Date Smoking Tobacco: Never Assessed Sex Assigned at Date Recorded Not on file documented as of this encounter Plan of Treatment Not on filedocumented as of this encounter Visit Diagnoses Diagnosis Type II or unspecified type diabetes jasen litus without mention of complication, uncontrolled - Primary documented in this encounter Care Teams Technical Applications Scientist Relationship Specialty Start Date End Date Lilian Persaud DO PCP - General 12/23/10 05/16/12 [address] [place] [address] Vane Zarate Psychiatrsamantha Psychiatry 03/22/12 documented as of this encounter
--- OUTSIDE RECORDS SUMMARY | 2022-02-14 10:49 | XMS_ITS | Encounter Summary ---
:1970 Author Organization [employer] Address [address], [place] [address] Care Team Providers Name Role Phone Gagandeep Hinojosa MD Primary Care Provider Encounter Details Date Type Department Care Team Description 10/25/2012 - Hospital Encounter [facility] 3S Monica Valle, MBBS [address] [place], [place] [id number] ACS (acute coronary 10/27/2012 Med-Coronary Zoie Khanna, DO [address] [place], [place] [id number] syndrome) (Primary Outpatient 3S [facility] Dx) [address] [place], [place] [address] Social History Tobacco Use Types Packs/Day Years [...] Filed: 11/01/121924 Note Time: 10/27/121657 Status: Signed Topper Press Operator: REINA Wharton (Physician) NAME: SHARLENE KRISHNAMURTHY MR#: [id number] CSN: [id number] AUTHENTICATING CLINICIAN: REINA oCol CONFIRM #: [id number] LOC: 1 HOSPITAL DISCHARGE SUMMARY DATE OF [...] at the bedside. [place]:BREANNA C: CONFIRM #: [id number] documented in this encounter Medications at Time [...] this encounter Progress Notes Vanessa Yee, HORACIO, CHILLING HOOD OPERATOR - 10/27/2012 4:53 PM CDT DISCHARGE O: [...] Direct 115 06/04/2011 1302 Patient Interview/Diet History: Blain/peanut butter for breakfast, sandwich or burger for [...] maybe should resume resperidone, too. Stop smoking. --[facility] Fabian Gutierrez MD - 10/27/2012 10:26 [...] ADMIT O: Admitted patient via cart from [facility] to bed # 3STH/3STH-05. D: Patient is [...] no imaging then. 2. ASHD Old inferior RI 3.5 x 16 bare metal stent RCA Apr 2011 Bounce-back angio Apr 2011--stent patent, mid-PDA disease, modest LAD disease, LVEF 60 Normal nuc scan OCT 2011. [facility] CT cor angio showed 40-70% mid LAD [...] Stop smoking. 3. He could go to --[facility] Estevan Taylor MD - 10/26/2012 11:13 AM CDT Consults signed by Estevan Taylor MD at 10/26/12 2804 Author: Estevan Taylor MD Service: (none) Author Type: Physician Filed: 10/26/12 9868 Note Time: 10/26/12 1256 Status: Signed Topper Press Operator: Estevan Taylor MD (Physician) NAME: SHARLENE KRISHNAMURTHY MR#: [id number] CSN: [id number] AUTHENTICATING CLINICIAN: Estevan Taylor MD CONFIRM #: [id number] LOC: 1 HOSPITAL CONSULTATION DATE OF CONSULTATION: [...] stress nuclear scan. He was hospitalized in [place] in early September with chest pain and diabetes out of control. He had stopped taking his insulin because he could not afford it. He had no cardiac findings and was discharged without further cardiac evaluation, although plans were made for an outpatient stress echo. Yesterday, he again presented to the [place] [facility] with chest pain. The patient [...] then went to the emergency room in [place]. He was still having pain when he [...] descending plaque by CT angiogram yesterday at [place]. 3. Bipolar disorder, disabled because of this. 4. Still smoking. 5. Diabetes on insulin. Poor control. 6. Hypertension. 7. Hyperlipidemia. 8. Obesity. 9. Finances are problem. Sometimes he cannot afford medicines. Coverage is okay for now, he says. SUGGESTION: 1. Coronary angiogram. I am guessing this will not show anything of significance. 2. Stop smoking. 3. He could be transferred to [facility]. CC: GAGANDEEP HINOJOSA MD [address] [facility] [place] [address] [facility]:BREANNA C: CONFIRM #: [id number] documented in this encounter OR Notes H&P - Zoie Khanna, - 10/26/2012 1:54 AM CDT HISTORY AND PHYSICAL Date of service 10/25/2012 Primary provider: Gagandeep Hinojosa HISTORY OF PRESENT ILLNESS: Chief complaint chest pain Medical records reviewed Pt is a 42 year old male with h/o CAD s/p BMS to the RCA 04/2011, uncontrolled diabetes mellitus and bipolar d/o He presented to [facility] today complaining of sudden onset of left [...] diabetes Prior to admission medications reviewed in [facility] - see EMR for details. Review [...] Code Status - full Zoie Khanna DO [facility] Hospitalist documented in this encounter Miscellaneous [...] Given Vanessa Yee RN - - 10/27/12 0750 charted under timed dose Other 0.9% sodium [...] had heparin infusing since admission; started at [place] running at 15.2 - heparin (porcine) 1,000 [...] Intravenous - 10/25/12 2332 pt transfer from [facility] with nitro infusing. Verified rate/dose/concentration. - 10/25/12 [...] Zoie Khanna DO LAB_1 Performing Organization Address City/[facility] Phon e Number HP CONVERSION BEDSIDE GLUCOSE MONITOR (10/27/2012 11:26 AM CDT) P athologist Signature Bedside Blood 182 mg/dL HP CONVERSION Glucose Test Specimen Anatomical Collection Method Collection Time Receive d Time (Source) Location / / Volume Laterality 10/27/2012 11:26 11/10/2012 AM CDT 12:30 PM CDT Zoie Khanna DO LAB_1 Performing Organization Address [facility] Phon e Number HP CONVERSION Cardiac Cath Procedure (10/27/2012 8:39 AM CDT) Specimen (Source) Anatomical Collection Method Collection Time Re ceived Time Location / / Volume Laterality 10/27/2012 8:39 AM CDT Narrative PN CENTRICITY - 10/27/2012 8:39 AM CDT [address] [place] [address] SHARLENE T TELLY ?? [id number] Cardiovascular Catheterization Comprehen sive Report : 1970 Age: 42 years Gender: Male Study date: 10/27/2012 Test time: 10:03 - 10:25 Fluoro time: 8.5 min PPH Staff: ??Wendy Cali RN Diagnostic Pockets And Pieces Necktie Operator: ??FABIAN GUTIERREZ MD Federal Mediator: ??Brandon Ta Scrub: ??Inderjit Larson RN Monitor: ??Екатерина Khalil CVT X-ray Tech: ??Charles Washington RT Ordering Physician: ??Franck TAYLOR History and indications INDICATIONS ?? -- ??Angina/RI: atypical chest pain. -- ??Coronary artery disease. Prior righ t coronary artery stent placement. Procedures PROCEDURES PERFORMED: -- ??Right coronary angiography. -- ??Left coronary angiography. NARRATIVE: The risks and alternatives of the procedures and conscious sedation were explained to the patient and informed consent was obtained. The patie nt was brought to the clinical laboratory medical director and placed on the table. Th e [...] PN CARDIAC CATH ORDERABLES Performing Organization Address [facility] Phon e Number PN CENTRICITY BEDSIDE GLUCOSE MONITOR (10/27/2012 7:52 AM CDT) athologist Signature Bedside Blood 223 mg/dL HP CONVERSION Glucose Test Specimen Anatomical Collection Method Collection Time Receive d Time (Source) Location / / Volume Laterality 10/27/2012 7:52 AM 3 8:05 CDT AM CDT Monica CUNNING[place]AMBS LAB_1 Performing Organization Address [facility] Phon e Number HP CONVERSION Potassium (10/27/2012 6:12 AM CDT) athologist Signature Potassium 4.2 3.5 - 5.2 HP CONVERSION mEq/L Specimen Anatomical Collection Method Collection Time Receive d Time (Source) Location / / Volume Laterality 10/27/2012 6:12 AM 3 6:21 CDT AM CDT Zoie Cheney Jey SAL LAB_1 Performing Organization Address [facility] Phon e Number HP CONVERSION (ABNORMAL) APTT (Activated Partial Thromboplastin Time) (10/27/2012 6:11 AM CDT) [facility] gist Method Time Signature Partial 58.5 (H) 25.0 - HP CONVERSION Thromboplastin 38.0 sec Time Specimen Anatomical Collection Method Collection Time Receive d Time (Source) Location / / Volume Laterality 10/27/2012 6:11 AM 3 6:21 CDT AM CDT Zoie Khanna DO LAB_1 Performing Organization Address [facility] Phon e Number HP CONVERSION BEDSIDE GLUCOSE MONITOR (10/26/2012 9:30 PM CDT) athologist Signature Bedside Blood 189 mg/dL HP CONVERSION Glucose Test Specimen Anatomical Collection Method Collection Time Receive d Time (Source) Location / / Volume Laterality 10/26/2012 9:30 PM 3 9:40 CDT PM CDT Monica [place] LAB_1 Performing Organization Address [facility] Phon e Number HP CONVERSION BEDSIDE GLUCOSE MONITOR (10/26/2012 5:03 PM CDT) P athologist Signature Bedside Blood 181 mg/dL HP CONVERSION Glucose Test Specimen Anatomical Collection Method Collection Time Receive d Time (Source) Location / / Volume Laterality 10/26/2012 5:03 PM 3 5:05 CDT PM CDT Monica Valle [facility] LAB_1 Performing Organization Address [facility] Phon e Number HP CONVERSION BEDSIDE GLUCOSE MONITOR (10/26/2012 11:52 AM CDT) P athologist Signature Bedside Blood 149 mg/dL HP CONVERSION Glucose Test Specimen Anatomical Collection Method Collection Time Receive d Time (Source) Location / / Volume Laterality 10/26/2012 11:52 10/26/2012 AM CDT 12:00 PM CDT Zoie Khanna LAB_1 Performing Organization Address [facility] Phon e Number HP CONVERSION ECG 12 Lead Inpatient (10/26/2012 10:17 AM CDT) P athologist Signature Ventricular Rate 79 BPM MUSE GHP Atrial Rate 79 BPM MUSE GHP P-R Interval 148 ms MUSE GHP QRS Duration 94 ms MUSE GHP QT 380 ms MUSE GHP QTc 435 ms MUSE GHP P Roy 40 degrees MUSE GHP R Roy 11 degrees MUSE GHP T Roy 27 degrees MUSE GHP Specimen (Source) Anatomical Collection Method Collection Time Re ceived Time Location / / Volume Laterality 10/26/2012 10:17 AM CDT Narrative MUSE GHP - 07/29/2019 1:56 PM CDT Sinus rhythm Normal ECG When compared with ECG of 25-OCT-2012 19 :36, No significant change was found Confirmed by HAL HARGROVE ([id number]), order editor PEPPER HERNANDEZ ([id number]) on 10/26/2012 2:20:40 PM Procedure Note Epic, Internal Processing - 08/01/2019Fo rmatting of this note might be different from the original. Sinus rhythm Normal ECG When compared with ECG of 25-OCT-2012 19 :36, No significant change was found Confirmed by HAL HARGROVE ([id number]), order editor PEPPER HERNANDEZ ([id number]) on 10/26/2012 2:20:40 PM Estevan Taylor MD PN ECG ORDERABLES Performing Organization Address City/[facility] Code Phon e Number MUSE GHP [address] [place] [address] BEDSIDE GLUCOSE MONITOR (10/26/2012 8:13 AM CDT) athologist Signature Bedside Blood 251 mg/dL HP CONVERSION Glucose Test Specimen Anatomical Collection Method Collection Time Receive d Time (Source) Location / / Volume Laterality 10/26/2012 8:13 AM 3 8:45 CDT AM CDT Monica Valle MBBS LAB_1 Performing Organization Address [facility] Code Phon e Number HP CONVERSION (ABNORMAL) APTT (Activated Partial Thromboplastin Time) (10/26/2012 7:03 AM CDT) [facility] gist Method Time Signature Partial 76.4 (H) 25.0 - HP CONVERSION Thromboplastin 38.0 sec Time Specimen Anatomical Collection Method Collection Time Receive d Time (Source) Location / / Volume Laterality 10/26/2012 7:03 AM 3 7:46 CDT AM CDT Zoie Khanna DO LAB_1 Performing Organization Address City/[facility] Code Phon e Number HP CONVERSION Potassium (10/26/2012 7:03 AM CDT) athologist Signature Potassium 4.5 3.5 - 5.2 HP CONVERSION mEq/L Specimen Anatomical Collection Method Collection Time Receive d Time (Source) Location / / Volume Laterality 10/26/2012 7:03 AM 3 7:46 CDT AM CDT Zoie Khanna DO LAB_1 Performing Organization Address [facility] Phon e Number HP CONVERSION (ABNORMAL) Hgb A1c (10/26/2012 7:03 AM CDT) athologist Signature HGB A1C 11.1 (H) 0.0 - 6.0 % HP CONVERSION Specimen Anatomical Collection Method Collection Time Receive d Time (Source) Location / / Volume Laterality 10/26/2012 7:03 AM 3 7:46 CDT AM CDT Zoie Khanna DO LAB_1 Performing Organization Address City/[facility] Phon e Number HP CONVERSION LABS CARD PROF TROPI 6 HRS (10/26/2012 2:07 AM CDT) athologist Signature Tropi At 6 Hrs <0.05 0.00 - HP CONVERSION 0.04 ng/mL Specimen Anatomical Collection Method Collection Time Receive d Time (Source) Location / / Volume Laterality 10/26/2012 2:07 AM 3 2:10 CDT AM CDT Zoie Khanna DO LAB_1 Performing Organization Address [facility] Code Phon e Number HP CONVERSION (ABNORMAL) APTT (Activated Partial Thromboplastin Time) (10/25/2012 10:11 PM CDT) [facility] gist Method Time Signature Partial 64.3 (H) 25.0 - HP CONVERSION Thromboplastin 38.0 sec Time Specimen Anatomical Collection Method Collection Time Receive d Time (Source) Location / / Volume Laterality 10/25/2012 10:11 10/25/2012 PM CDT 10:14 PM CDT Zoie Khanna DO LAB_1 Performing Organization Address [facility] Phon e Number HP [...] Zoie Khanna DO LAB_1 Performing Organization Address City/[facility]/ZIP Code Phon e Number HP CONVERSION CARD PROF TROPI 90 MIN (10/25/2012 9:53 PM CDT) P athologist Signature Tropi at 90 Min <0.05 0.00 - HP CONVERSION 0.04 ng/mL Specimen Anatomical Collection Method Collection Time Receive d Time (Source) Location / / Volume Laterality 10/25/2012 9:53 PM 3 CDT 10:08 PM CDT Zoie Khanna DO LAB_1 Performing Organization Address [facility] Phon e Number HP CONVERSION BEDSIDE GLUCOSE MONITOR (10/25/2012 9:38 PM CDT) P athologist Signature Bedside Blood 190 mg/dL HP CONVERSION Glucose Test Specimen Anatomical Collection Method Collection Time Receive d Time (Source) Location / / Volume Laterality 10/25/2012 9:38 PM 3 9:40 CDT PM CDT Zoie Khanna DO LAB_1 Performing Organization Address [facility] Phon e Number HP CONVERSION INR/Protime (10/25/2012 [...] valves in the aortic position , acute RI, valvular heart disease and atrial fibril lation. [...] Zoie Khanna DO LAB_1 Performing Organization Address [facility] Code Phon e Number HP CONVERSION (ABNORMAL) Differential (10/25/2012 8:07 PM CDT) [facility] Method Time Signature Absolute 3.8 1.8 - [...] Zoie Khanna DO LAB_1 Performing Organization Address [facility] Phon e Number HP CONVERSION (ABNORMAL) Complete Blood Count W/Diff (10/25/2012 8:07 PM CDT) [facility] Method Time Signature White Blood Cell 9.0 [...] Zoie Khanna DO LAB_1 Performing Organization Address [facility] Phon e Number HP CONVERSION CARDIAC PROFILE [...] GHP QTc 441 ms MUSE GHP P Roy 32 degrees MUSE GHP R Roy 19 degrees MUSE GHP T Roy 24 degrees MUSE GHP Specimen (Source) Anatomical Collection Method Collection Time Re ceived Time Location / / Volume Laterality 10/25/2012 7:36 PM CDT Narrative MUSE GHP - 07/29/2019 1:57 PM CDT Sinus rhythm Normal ECG When compared with ECG of 14-MAY-2011 12 :48, Criteria for Inferior infarct are no william reny Present Confirmed by HEMA JARA ([id number]), raymond or PEPPER HERNANDEZ ([id number]) on 10/26/2012 [...] e Number MUSE GHP [address] [place] [address] MRSA Culture (10/25/2012 6:13 PM CDT) Component [...] Visit Diagnoses Diagnosis ACS (acute coronary syndrome) ([facility]) - Pr imary Intermediate coronary syndrome Plan [...] has to do it for himself. Reports Hoahaoism marita, no churchattendance. Spiritual care will remain available. Note completed by: Dianne Paris, [id number], pager [phone] End of Report documented in this encounter Care Teams Commercial Collections Driver Relationship Specialty Start Date End Date Gagandeep Hinojosa MD PCP - General 05/17/12 [address] [place] [address] Vane Zarate Psychiatrist Psychiatry 03/22/12 documented as of this encounter
--- OUTSIDE RECORDS SUMMARY | 2022-02-14 10:49 | XMS_ITS | Encounter Summary ---
:1970 Author Organization [employer] Address [address] [place] [address] Care Team Providers Name Role Phone Lilian Persaud Primary Care Provider Reason for Visit Reason Comments RESULTS, TEST Encounter Details Date Type Department Care Team Description 02/02/2012 Telephone [facility] Stevenson Greene MD RESULTS, TEST [address] [place] [address] [place], [place] [phone] (Wo rk) Social History Tobacco Use Types [...] you. ThanksSheldon ----- Message ----- From: Stevenson Greene MD Sent: 02/02/2012 2:02 PM To: Sheldon Cavazos RN Please verify what he is taking. Is he taking gemfibrozil? documented in this encounter Plan of Treatment Not on filedocumented as of this encounter Visit Diagnoses Diagnosis Nonspecific abnormal results of liver fu nction study - Primary documented in this encounter Care Teams Electronics Manufacturer Relationship Specialty Start Date End Date Lilian Persaud DO PCP - General 12/23/10 05/16/12 [address] [place] [id number] documented as of this encounter
--- OUTSIDE RECORDS SUMMARY | 2022-02-14 10:49 | XMS_ITS | Encounter Summary ---
:1970 [address] [facility] Address [address], [place] [address] Care Team Providers Name Role Phone Lilian Persaud DO Primary Care Provider Reason for Referral Specialty Diagnoses / Procedures Referred By Contact Refer red To Contact Gagandeep Hinojosa MD [address] [place] [id number] Referral ID Status Reason Start Date Expiration Date Visits Requ ested Visits Authorized AL NEEDS SALESPERSON Reason for Visit Reason Comments CONSULT MASS Encounter Details Date Type Department Care Team Description 04/10/2012 Initial Consult [place] [address], Soft tis leydi mass; General Surgery Lipoma of other skin and subcutaneous ti ssue [address] [facility] [place] [id number] [place] [phone] [id number] Social History Tobacco Use Types Packs/Day Years [...] 104.3 kg (230 lb) 04/10/2012 10:56 AM BURIAL NEEDS SALESPERSON Height 177.8 cm (5' 10) 04/10/2012 10:56 AM BURIAL NEEDS SALESPERSON Body Mass Index 33 04/10/2012 10:56 AM BURIAL NEEDS SALESPERSON documented in this encounter Progress Notes Jim [...] 5' 10 (177.8 cm) Wt 230 lb (761599 g) BMI 33.00 kg/m2 GENERAL APPEARANCE: Timur [...] mood and affect congruent Imaging performed at [facility]: ULTRASOUND OF THE TWO PALPABLE LUMPS ON [...] ssue documented in this encounter Care Teams Animal Caretaker Relationship Specialty Start Date End Date Lilian Persaud DO PCP - General 12/23/10 05/16/12 [address] [place] [address] Vane Zarate Psychiatrsamantha Psychiatry 03/22/12 documented as of this encounter
--- OUTSIDE RECORDS SUMMARY | 2022-02-14 10:49 | XMS_ITS | Encounter Summary ---
:1970 Author Organization [employer] Address [address] [place] [address] Care Team Providers Name Role Phone Lilian Persaud DO Primary Care Provider Reason for Visit Reason Comments RESULTS, TEST Encounter Details Date Type Department Care Team Description 11/17/2011 Telephone [facility] Lilian Persaud DO RESULTS, TEST [address] [facility] [address] [address] [place] [address] [place] [address] [phone] (Wo rk) Social History Tobacco Use Types Packs/Day Years Used Date Smoking Tobacco: Never Assessed Sex Assigned at Date Recorded Not on file documented as of this encounter Nursing Notes Freya Hess - 11/19/2011 11:24 AM CDT Left vm for pt informing of note below. Routing note to pt's adult neurologist Brittany Main MD who ordered test. Lilian Persaud DO - 11/19/2011 9:36 AM CDT I believe adult neurologist ordered this test, as I did not order this test. Please let pt know that it appears to be normal but he should also speak to his adult neurologist about results. Shefali Silva - 11/18/2011 9:48 AM CDT Procedure done at [facility]. NUCLEAR MYOCARDIAL PERFUSION STUDY REPORT, 11/10/2011 INDICATION: Chest pain. 41-year-old man with known coronary artery disease. He has a history of a prior mes-HY-ksavunvkj myocardial infarction. He is status post PCI [...] test When and where was test done? [facility] 11/10/11 Who ordered the test? Lilian Persaud, DO documented in this encounter Plan of Treatment Not on filedocumented as of this encounter Visit Diagnoses Not on filedocumented in this encounter Care Teams Insurance Executive Relationship Specialty Start Date End Date Lilian Persaud DO PCP - General 12/23/10 05/16/12 [address] [place] [id number] documented as of this encounter
--- OUTSIDE RECORDS SUMMARY | 2022-02-14 10:49 | XMS_ITS | Encounter Summary ---
:1970 Author Organization [employer] Address [address] [place] [address] Care Team Providers Name Role Phone Lilian Persaud DO Primary Care Provider Encounter Details Date Type Department Care Team Description 04/07/2012 Notes/Orders [place] [facility] Herlinda De Santiago, ROBYN Mass on back [address] [facility] [place] [address] Social History Tobacco Use Types Packs/Day Years Used Date Smoking Tobacco: Never Assessed Sex Assigned at Date Recorded Not on file documented as of this encounter Plan of Treatment Not on filedocumented as of this encounter Procedures Procedure Name Priority Date/Time Associated Diagnosis Comme nts US NECK/HEAD SOFT Routine 04/06/2012 Mass on back Results fo r this TISSUE NOT THYROID procedure are in the results section . documented in this encounter Results US Neck/Head Soft Tissue Not Thyroid (04/06/2012) Anatomical Region Laterality Modality Neck, Head Other Impressions 04/06/2012 12:00 AM BLACK OFF WORKER IMPRESSION: ??No sonographic abnormality identified. ??The findings were discussed with the patient at the t sadia of the examination. Narrative 04/06/2012 12:00 AM BLACK OFF WORKER Imaging performed at [facility]: ULTRASOUND OF THE TWO PALPABLE LUMPS ON THE PATIENT'S BACK - 04/06/2012 INDICATION: ??Masses on back FINDINGS: ??Sonographic evaluation was p erformed over the two lumps. ??One lump is in the midline whil e the second is just to the right of midline. ??These may be con tiguous. The entire area was scanned. ??There is no discrete solid or cystic mass. ??There is no skin thickeni ng or other findings to explain the clinical findings. Procedure Note Conversion, Imr - 10/11/2015Formatting o f this note might be different from the original. Imaging performed at [facility]: ULTRASOUND OF THE TWO PALPABLE LUMPS ON THE PATIENT'S BACK - 04/06/2012 INDICATION: Masses on back FINDINGS: Sonographic evaluation was per formed over the two lumps. One lump is in the midline while the second is just to the right of midline. These may be quinton guous. The entire area was scanned. There is no discrete solid or cystic mass. There is no skin thickening or other findings to explain the clinical findings. IMPRESSION IMPRESSION: No sonographic abnormality i dentified. The findings were discussed with the patient at the t sadia of the examination. Gagandeep Hinojosa MD [facility] documented in this encounter Visit Diagnoses Diagnosis Mass on back Localized superficial swelling, mass, or lump documented in this encounter Care Teams Dimension Specification Inspector Relationship Specialty Start Date End Date Lilian Persaud DO PCP - General 12/23/10 05/16/12 [address] [place] [address] Vane Zarate Psychiatrist Psychiatry 03/22/12 documented as of this encounter
--- OUTSIDE RECORDS SUMMARY | 2022-02-14 10:49 | XMS_ITS | Encounter Summary ---
:1970 Author Organization [facility] Address [address] [place] [address] Care Team Providers Name Role Phone Gagandeep Hinojosa MD Primary Care Provider Encounter Details Date Type Department Care Team Description 05/17/2012 Notes/Orders Vane Durbin, Encounter for long-term [address] [place] (current) use of other [place] [address] medications (Primary [phone] [address] Dx) [place] [address] Social History Tobacco Use Types Packs/Day Years Used Date Smoking Tobacco: Never Assessed Sex Assigned at Date Recorded Not on file documented as of this encounter Plan of Treatment Not on filedocumented as of this encounter Visit Diagnoses Diagnosis Encounter for long-term (current) use of other medications - Primary documented in this encounter Care Teams Channel Rougher Relationship Specialty Start Date End Date Gagandeep Hinojosa MD PCP - General 05/17/12 [address] [place] Gerber [id number] Vane Zarate Psychiatrist Psychiatry 03/22/12 documented as of this encounter
--- OUTSIDE RECORDS SUMMARY | 2022-02-14 10:49 | XMS_ITS | Encounter Summary ---
:1970 Author Organization [employer] Address [address] [place] [address] Care Team Providers Name Role Phone Gagandeep Hinojosa MD Primary Care Provider Reason for Visit Reason Comments Rectal Bleeding Encounter Details Date Type Department Care Team Description 09/20/2012 Nurse Triage [facility] Gagandeep Hinojosa, Rectal Bleeding [address] [place] [address] [phone] [place], [place] [address] (Wo rk) Social History Tobacco Use Types Packs/Day Years Used Date Smoking Tobacco: Never Assessed Sex Assigned at Date Recorded Not on file documented as of this encounter Nursing Notes Ruth Ann Nelson RN - 09/20/2012 8:57 PM CDT Protocol: RECTAL [id number] Negative: Taking Coumadin (warfarin), Pradaxa (dabigatran), or known bleeding disorder (e.g., thrombocytopenia) Negative: Severe dizziness (e.g., unable to stand, requires support to walk, feels like passing out now) Negative: [1] Constant abdominal pain AND [2] present > 2 hours Affirmative: Patient sounds very sick or weak to the triager Disposition of Go To ED Now (Or PCP Triage) suggested. Protocol: RECTAL [id number] Affirmative: Large mass protruding out of rectum [...] on filedocumented in this encounter Care Teams Rubber Goods Assembler Relationship Specialty Start Date End Date Gagandeep Hinojosa MD PCP - General 05/17/12 [facility]15 [facility] [place] [address] Vane Zarate Psychiatrist Psychiatry 03/22/12 documented as of this encounter
--- OUTSIDE RECORDS SUMMARY | 2022-02-14 10:50 | XMS_ITS | Encounter Summary ---
:1970 [facility] Address [address] [address] Care Team Providers Name Role Phone Lilian Persaud DO Primary Care Provider Reason for Visit Reason Comments Refill Encounter Details Date Type Department Care Team Description 08/13/2011 Refill [facility] FAM[facility] Tanesha Amaya MD Refill [address] [place] [address] [address] [facility] N [id number] (Wo rk) Social History Tobacco Use Types [...] on filedocumented in this encounter Care Teams Base Ply Hand Relationship Specialty Start Date End Date Lilian Persaud DO PCP - General 12/23/10 05/16/12 1415 [facility] [place] [address] documented as of this encounter
--- OUTSIDE RECORDS SUMMARY | 2022-02-14 10:50 | XMS_ITS | Encounter Summary ---
:1970 Author Organization [employer] [facility] [facility] Address [address] [place] [address] Care Team Providers Name Role Phone Lilian Persaud DO Primary Care Provider Reason for Visit Reason Comments RESULTS, TEST Encounter Details Date Type Department Care Team Description 06/18/2011 [facility]aud DO RESULTS, TEST 1415 [facility] . [address] [place] [address] [place] [address] [phone] (Wo rk) Social History Tobacco Use Types Packs/Day Years Used Date Smoking Tobacco: Never Assessed Sex Assigned at Date Recorded Not on file documented as of this encounter Nursing Notes Jacqueline Herrera LPN - 06/18/2011 1:35 PM CST Pt. informed. ARCH SCHOLAR Lilian Persaud DO - 06/18/2011 12:54 PM CST Increase Lantus from 60 units nightly to 65 units nightly. Increase NovoLog from 20 units t.i.d. with meals to 24 units t.i.d. with meals. Have patient call Tuesday with blood sugar readings. Please check to see the patient is aware of his earlier appointment with Dr. Calhoun with endocrine,who I have discussed his case with. ARCH SCHOLAR Sarah Leon - 06/18/2011 12:45 PM CST calling to report his blood sugars as you had asked him to do. 06/15 am was 285, afternoon 310 and bedtime 355. 06/16 am298,afternoon 320, yawsuyr230, 06/17 am302, afternoon 322 and bedtime 370 and this morning it was 264. please call with plan ARCH SCHOLAR Jo Cruz - 06/18/2011 12:35 PM CST Non -Symptom Message from Front Line Primary Care Provider: Lilian Persaud DO Message: Pt requesting his blood sugar test results. ARCH SCHOLAR documented in this encounter Plan of Treatment Not on filedocumented as of this encounter Visit Diagnoses Diagnosis Type II or unspecified type diabetes jasen litus without mention of complication, uncontrolled - Primary documented in this encounter Care Teams Manager Books Relationship Specialty Start Date End Date Lilain Persaud DO PCP - General 12/23/10 05/16/12 1415 [place] [address] documented as of this encounter
--- OUTSIDE RECORDS SUMMARY | 2022-02-14 10:50 | XMS_ITS | Encounter Summary ---
:1970 Author Organization [employer] Address [address] [place] [address] Care Team Providers Name Role Phone Lilian Persaud DO Primary Care Provider Reason for Visit Reason Comments Refill Encounter Details Date Type Department Care Team Description 06/09/2011 Refill [facility] Lilian Persaud, Refill [address] [address] [place] [address] [place] [address] [phone] (Wo rk) Social History Tobacco Use Types [...] cardiology to review refill request on Plavix. RINARY PRACTICE MANAGER Lilian Persaud DO - 06/11/2011 9:44 AM CST diabetes med and cholesterol med refilled. Plavix refill needs to go to cardiology. RINARY PRACTICE MANAGER Sarah Leon - 06/10/2011 8:[address] Persaud to review refills of metformin, fenofibrate, plavix. plavix is not on RN list of refills. pt recently seen by cardiology. due for labs - orders in computer documented in this encounter Plan of Treatment Not on filedocumented as of this encounter Visit Diagnoses Not on filedocumented in this encounter Care Teams Greenhouse Assistant Relationship Specialty Start Date End Date Lilian Persaud DO PCP - General 12/23/10 05/16/12 1415 [place] [address] documented as of this encounter
--- OUTSIDE RECORDS SUMMARY | 2022-02-14 10:50 | XMS_ITS | Encounter Summary ---
:1970 Author Organization [employer] Address [address] [place] [address] Care Team Providers Name Role Phone Lilian Persaud DO Primary Care Provider Reason for Visit Reason Comments Chest Pain Encounter Details Date Type Department Care Team Description 05/13/2011 Nurse Triage [facility] Lilian Persaud DO Chest Pain [address] [address] [place] [address] [place] [address] [phone] (Wo rk) Social History Tobacco Use Types Packs/Day Years Used Date Smoking Tobacco: Never Assessed Sex Assigned at Date Recorded Not on file documented as of this encounter Nursing Notes Griselda Ventura RN - 05/13/2011 7:59 PM CST patient calling telling me he recently had an NC and stint. Started with chest pain 5 minutes ago and feels a bit sob. Talking in full sentences and with him. Asked him to hang up and call 911. [place] they live one mile from [facility] and can drive him as it may be faster than 911. I told him ONLY if they left Immediately. will take him now. Protocol: CHEST [id number] Affirmative: [1] Chest pain lasting > 5 minutes AND [2] history of heart disease (e.g., heart attack, bypass surgery, angina, angioplasty) Disposition of Call 911 suggested. documented in this encounter Plan of Treatment Not on filedocumented as of this encounter Visit Diagnoses Not on filedocumented in this encounter Care Teams Net Mobile Developer Relationship Specialty Start Date End Date Lilian Persaud DO PCP - General 12/23/10 05/16/12 14[address] [place] [address] documented as of this encounter
--- OUTSIDE RECORDS SUMMARY | 2022-02-14 10:50 | XMS_ITS | Encounter Summary ---
:1970 Author Organization [employer] Address [address] [address] Care Team Providers Name Role Phone Rolando Lopez DO Primary Care Provider Encounter Details Date Type Department Care Team Description 05/14/2011 Hospital Encounter Heart & Vascular Steve More Ot her disorders of lipoid metabolism; Center Higinio Morales MD Hypertriglyceridemia; Area [address] (diabetes mellitus) type II uncontrolled with renal manifestation; [address] Laboratory examination, unspecified; [address] [place], [place] Cor athrscl-uns vessel [facility] [address] [place] [address] [phone] Social History Tobacco Use Types Packs/Day Years Used Date Smoking Tobacco: Never Assessed Sex Assigned at Date Recorded Not on file documented as of this encounter Last Filed Vital Signs Vital Sign Reading Time Taken Comments Blood Pressure 146/84 05/14/2011 11:00 AM SPECIAL EDUCATION RESOURCE TEACHER Pulse 74 05/14/2011 11:00 AM SPECIAL EDUCATION RESOURCE TEACHER Temperature 36.7 ??C (98.1 ??F) 05/14/2011 11:00 AM SPECIAL EDUCATION RESOURCE TEACHER Respiratory Rate 18 05/14/2011 11:00 AM SPECIAL EDUCATION RESOURCE TEACHER Oxygen Saturation 96% 05/14/2011 11:00 AM SPECIAL EDUCATION RESOURCE TEACHER Inhaled Oxygen Concentration - - Weight 101.5 kg (223 lb 12.3 oz) 05/14/2011 11:00 AM SPECIAL EDUCATION RESOURCE TEACHER Height - - Body Mass Index 32.57 [...] discharges before Tuesday, will continue education at [facility]. Cordelia Ledesma RD, CDE Johnnie Ruggiero MD [...] management re CAD. Johnnie Ruggiero M.D. Pager: [phone] Rolando Villegas RN - 05/14/2011 11:43 AM CST Preparing patient for coronary angiogram scheduled later today. Reports he had his daily ASA and Plavix already this morning. Declines to watch video, had an angio two weeks ago and remembers procedurewell. Verbalizes that he hopes to discharge home after angio today. Requesting nicotine patch, reports he quit smoking two weeks ago after CA and has been having good results with [...] Primary Care Provider: Rolando Lopez DO Primary Disposal Operator: Scar Isaacs MD History of Present Illness: [...] time and resolved with morhpine in the [place] ER. He was admitted there, and transferred [...] 250.02 ??? Erectile dysfunction 607.84D ??? Acute CA 410.90BQ ??? 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 History Social History [...] time. Thank You, Fabian Gutierrez MD Cardiology [facility] [place]. IAL EDUCATION RESOURCE TEACHER documented in this encounter Miscellaneous Notes Medication [...] Date:05/14/11, End Date:-, Frequency:- *No Administrations Recorded IAL EDUCATION RESOURCE TEACHER documented in this encounter Plan of Treatment Not on filedocumented as of this encounter Procedures Procedure Name Priority Date/Time Associated Diagnosis Comme nts BEDSIDE GLUCOSE Routine 05/14/2011 1:04 PM Result s for this MONITOR POCT SPECIAL EDUCATION RESOURCE TEACHER procedure are i n the results section. CARDIAC CATH Routine 05/14/2011 12:53 PM Results for this PROCEDURE SPECIAL EDUCATION RESOURCE TEACHER procedure are i n the results section. ECG 12 LEAD Routine 05/14/2011 12:48 PM Results for this INPATIENT SPECIAL EDUCATION RESOURCE TEACHER procedure are i n the results section. XR CHEST 2 VIEWS STAT 05/14/2011 12:36 PM Resu lts for this SPECIAL EDUCATION RESOURCE TEACHER procedure are i n the results section. CARD PROF ANDRES 90 STAT 05/14/2011 12:28 PM Re sults for this MIN SPECIAL EDUCATION RESOURCE TEACHER procedure are i n the results section. CARDIAC MARKER STAT 05/14/2011 11:38 AM Result s for this PROFILE SPECIAL EDUCATION RESOURCE TEACHER procedure are i n the results section. CK, TOTAL STAT 05/14/2011 11:38 AM Results for this SPECIAL EDUCATION RESOURCE TEACHER procedure are i n the results section. documented in this encounter Results BEDSIDE GLUCOSE MONITOR (05/14/2011 1:04 PM SPECIAL EDUCATION RESOURCE TEACHER) P athologist Signature Bedside Blood 290 mg/dL HP CONVERSION Glucose Test Specimen Anatomical Collection Method Collection Time Receive d Time (Source) Location / / Volume Laterality 05/14/2011 1:04 PM 2 1:25 SPECIAL EDUCATION RESOURCE TEACHER PM SPECIAL EDUCATION RESOURCE TEACHER Steve More MD LAB_1 Performing Organization Address City/State/ZIP Code Phon e Number HP CONVERSION Cardiac Cath Procedure (05/14/2011 12:53 PM SPECIAL EDUCATION RESOURCE TEACHER) Specimen (Source) Anatomical Collection Method Collection Time Re ceived Time Location / / Volume Laterality 05/14/2011 12:53 PM SPECIAL EDUCATION RESOURCE TEACHER Narrative PN [facility]ITY - 05/14/2011 12:53 PM SPECIAL EDUCATION RESOURCE TEACHER SHARLENE KRISHNAMURTHY ?? [id number] Cardiac Catheterization : 1970 Age: 41 years Gender: Male Study date: 05/14/2011 Test time: 14:22 - 14:40 Fluoro time: 1.9 min PPH Staff: ??Antoinette Olivera RN Diagnostic Disposal Operator: ??ARTIE RUGGIERO MD Software Test And Validation Engineer: ??Ceci Bowles Scrub: ??Julia Che RN Monitor: [...] obtained. The patient was brought to the cath lab radiological technologist and placed on the table. The planned [...] 17:06:24 PPH Staff: Antoinette Olivera RN Diagnostic Disposal Operator: JOHNNIE RUGGIERO MD Software Test And Validation Engineer: Ceci Bowles Scrub: Julia Che RN Monitor: [...] ECG 12 Lead Inpatient (05/14/2011 12:48 PM SPECIAL EDUCATION RESOURCE TEACHER) P athologist Signature Ventricular Rate 71 BPM MUSE GHP Atrial Rate 71 BPM MUSE GHP P-R Interval 142 ms MUSE GHP QRS Duration 94 ms MUSE GHP QT 388 ms MUSE GHP QTc 421 ms MUSE GHP P [place] 28 degrees MUSE GHP R [place] 12 degrees MUSE GHP T [place] -2 degrees MUSE GHP Specimen (Source) Anatomical Collection Method Collection Time Re ceived Time Location / / Volume Laterality 05/14/2011 12:48 PM SPECIAL EDUCATION RESOURCE TEACHER Narrative MUSE GHP - 07/31/2019 3:12 PM [...] e Number MUSE G[facility] [address] [place] [address] XR Chest 2 Views (05/14/2011 12:36 PM SPECIAL EDUCATION RESOURCE TEACHER) Anatomical Region Laterality Modality Chest, Lung Other Specimen (Source) Anatomical Location Collection Method / Collectio n Time Received Time / Laterality Volume Impressions 05/14/2011 12:42 PM SPECIAL EDUCATION RESOURCE TEACHER IMPRESSION: ??Negative PA and left later al chest. Narrative 05/14/2011 12:42 PM SPECIAL EDUCATION RESOURCE TEACHER HISTORY: ??chest pain COMPARISON: ??None. FINDINGS: ??Two [...] PROF TROPI 90 MIN (05/14/2011 12:28 PM SPECIAL EDUCATION RESOURCE TEACHER) athologist Signature Tropi at 90 Min <0.05 0.00 - HP CONVERSION 0.04 ng/mL Specimen Anatomical Collection Method Collection Time Receive d Time (Source) Location / / Volume Laterality 05/14/2011 12:28 05/14/2011 PM SPECIAL EDUCATION RESOURCE TEACHER 12:39 PM SPECIAL EDUCATION RESOURCE TEACHER Steve More MD LAB_1 Performing Organization Address [facility] Phon e Number HP CONVERSION CK, Total (05/14/2011 11:38 AM SPECIAL EDUCATION RESOURCE TEACHER) athologist Signature Creatine Kinase 85 0 - 225 HP CONVERSION U/L Specimen Anatomical Collection Method Collection Time Receive d Time (Source) Location / / Volume Laterality 05/14/2011 11:38 05/14/2011 AM SPECIAL EDUCATION RESOURCE TEACHER 11:42 AM SPECIAL EDUCATION RESOURCE TEACHER Steve More MD LAB_1 Performing Organization Address [facility] Phon e Number HP CONVERSION CARDIAC MARKER PROFILE (05/14/2011 11:38 AM SPECIAL EDUCATION RESOURCE TEACHER) athologist Signature TROPONIN I <0.05 0.00 - 0.04 HP CONVERSION ng/mL Specimen Anatomical Collection Method Collection Time Receive d Time (Source) Location / / Volume Laterality 05/14/2011 11:38 05/14/2011 AM SPECIAL EDUCATION RESOURCE TEACHER 11:42 AM SPECIAL EDUCATION RESOURCE TEACHER Steve More MD LAB_1 Performing Organization Address [facility] Phon e Number HP CONVERSION documented in this encounter Visit Diagnoses Diagnosis 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 Hypertriglyceridemia (HRC) Pure hyperglyceridemia DM (diabetes mellitus) type II uncontrol led with renal manifestation Type II or unspecified type diabetes jasen litus with renal manifestations, uncontrolled Laboratory examination, unspecified Coronary atherosclerosis of unspecified type of vessel, [place] or graft (HRC) Coronary atherosclerosis of unspecified type of vessel, [place] or graft documented in this encounter Care Teams Boom Worker Relationship Specialty Start Date End Date Rolando Lopez DO PCP - General 12/23/10 05/16/12 [address] [place] [address] documented as of this encounter
--- OUTSIDE RECORDS SUMMARY | 2022-02-14 10:50 | XMS_ITS | Encounter Summary ---
:1970 Author Organization [employer] Address [address] [place] [address] Care Team Providers Name Role Phone Lilian Persaud DO Primary Care Provider Reason for Visit Reason Comments UPDATE Encounter Details Date Type Department Care Team Description 06/04/2011 Telephone [place] [facility] Lilian Persaud DO UPDATE [address] [address] [place] [address] [place] [address] [phone] (Wo rk) Social History Tobacco Use Types [...] on Tuesday morning with update. Pt agreed. STANT HAIRSTYLIST Lilian Persaud DO - 06/04/2011 4:16 PM CST Have patient increase Lantus to 40 units (was 35 units) subcutaneous every HS. Also, increase Novolog to 10 units (was 9 units) TID with meals. Call Tuesday 2/13 am with BS readings. Further increase to be determined at that time. STANT HAIRSTYLIST Judy Pittman, JOSETTE - 06/04/2011 4:03 PM [...] if insulin needs to be adjusted again. STANT HAIRSTYLIST Gladys Granger - 06/04/2011 3:42 PM CST Non -Symptom Message from Front Line Primary Care Provider: Lilian Persaud DO Message: Pt is calling to leave his Blood Sugar levels from the last 3 days: Friday 06/02: AM-268 PM-315 Night- 06/03: AM -295 PM- 320 Night- 06/04: AM- 291 STANT HAIRSTYLIST documented in this encounter Plan of Treatment Not on filedocumented as of this encounter Visit Diagnoses Diagnosis Type II or unspecified type diabetes jasen litus without mention of complication, uncontrolled - Primary documented in this encounter Care Teams Salsa Dance Instructor Relationship Specialty Start Date End Date Lilian Persaud DO PCP - General 12/23/10 05/16/12 1415 [place] [address] documented as of this encounter
--- OUTSIDE RECORDS SUMMARY | 2022-02-14 10:50 | XMS_ITS | Encounter Summary ---
:1970 Author Organization [employer] Address [address] [place] [address] Care Team Providers Name Role Phone Lilian Persaud DO Primary Care Provider Reason for Visit Reason Comments UPDATE Encounter Details Date Type Department Care Team Description 08/27/2011 Telephone [facility] Lilian Persaud DO UPDATE [address] [address] [place] [address] [place] [address] [phone] (Wo rk) Social History Tobacco Use Types [...] from this past week. Timur Leyva (Self) [phone] (H) y-vm documented in this encounter Plan of Treatment Not on filedocumented as of this encounter Visit Diagnoses Diagnosis Type II or unspecified type diabetes jasen litus without mention of complication, uncontrolled - Primary documented in this encounter Care Teams Sales Representative Raw Fibers Relationship Specialty Start Date End Date Lilian Persaud DO PCP - General 12/23/10 05/16/12 [address] [place] [address] documented as of this encounter
--- OUTSIDE RECORDS SUMMARY | 2022-02-14 10:50 | XMS_ITS | Encounter Summary ---
:1970 Author Organization [employer] Address [address] [place] [address] Care Team Providers Name Role Phone Lilian Persaud DO Primary Care Provider Encounter Details Date Type Department Care Team Description 06/04/2011 Lab Visit [place] [facility] Other disorders of lipoid [address] metabolism [place] [id number] Social History Tobacco Use Types Packs/Day Years Used Date Smoking Tobacco: Never Assessed Sex Assigned at Date Recorded Not on file documented as of this encounter Plan of Treatment Not on filedocumented as of this encounter Procedures Procedure Name Priority Date/Time Associated Diagnosis Comme nts LIPID PANEL AND Routine 06/04/2011 1:02 PM Other disorders of Results for this DIRECT LDL(IF [employer]PRETER [employer] lipoid metabolism procedure are in NEEDED) ([facility]) the results section. LDL CHOLESTEROL, Routine 06/04/2011 1:02 PM Resul ts for this DIRECT MEASURED [employer] procedure ar e in the results section. ALT (SGPT) Routine 06/04/2011 1:02 PM Other disorders of Res ults for this [employer] lipoid metabolism procedure are in ([facility]) the results section. AST Routine 06/04/2011 1:02 PM Other disorders of Res ults for this [employer] lipoid metabolism procedure are in ([facility]) the results section. CK, TOTAL Routine 06/04/2011 1:02 PM Other disorders of Res ults for this [employer] lipoid metabolism procedure are in ([facility]) the results section. documented in this encounter Results LDL Cholesterol, Direct Measured (06/04/2011 1:02 PM [employer]) athologist Signature LDL Direct 115 0 - 130 HP CONVERSION mg/dL Specimen Anatomical Collection Method Collection Time Receive d Time (Source) Location / / Volume Laterality 06/04/2011 1:02 PM 2 8:20 [employer] PM [employer] Narrative HP CONVERSION - 06/04/2011 9:21 PM [employer] Performed at [facility], [address] [place] [address] Lilian Persaud DO LAB_1 Performing Organization Address [facility] Phon e Number HP CONVERSION CK, Total (06/04/2011 1:02 PM [employer]) athologist Signature Creatine Kinase 60 0 - 225 HP CONVERSION U/L Specimen Anatomical Collection Method Collection Time Receive d Time (Source) Location / / Volume Laterality 06/04/2011 1:02 PM 2 8:20 [employer] PM [employer] Narrative HP CONVERSION - 06/04/2011 9:07 PM [employer] Performed at [facility], [address] [place] [address] Lilian Persaud DO LAB_1 Performing Organization Address [facility] Phon e Number HP CONVERSION AST (06/04/2011 1:02 PM [employer]) [facility] gist Method Time Signature Aspartate 38 0 - 45 HP CONVERSION Aminotransferase U/L Specimen Anatomical Collection Method Collection Time Receive d Time (Source) Location / / Volume Laterality 06/04/2011 1:02 PM 2 8:20 [employer] PM [employer] Narrative HP CONVERSION - 06/04/2011 9:07 PM [employer] Performed at [facility], [address] [place] [address] Lilian Persaud DO LAB_1 Performing Organization Address [facility] Phon e Number HP CONVERSION (ABNORMAL) ALT (SGPT) (06/04/2011 1:02 PM [employer]) [facility] gist Method Time Signature Alanine 69 (H) 4 - 55 HP CONVERSION Aminotransferase U/L Specimen Anatomical Collection Method Collection Time Receive d Time (Source) Location / / Volume Laterality 06/04/2011 1:02 PM 2 8:20 [employer] PM [employer] Narrative HP CONVERSION - 06/04/2011 9:07 PM [employer]PRE[employer] Performed at [facility], [address] [place], [place] [id number] Lilian Persaud DO LAB_1 Performing Organization Address City/[facility] Phon e Number HP CONVERSION (ABNORMAL) Lipid Panel and Direct LDL(If Needed) (06/04/2011 1:02 PM [employer]) [facility] Method Time Signature Cholesterol 204 (H) 0 - 200 HP CONVERSION mg/dL Triglycerides 593 (H) 0 - 149 HP CONVERSION mg/dL HDL Cholesterol 29 (L) >39 mg/dL HP CONVERSION Cholesterol/HDL 7.0 HP CONVERSION Ratio Screen Length Of Fast 12.0 HP CONVERSION Specimen Anatomical Collection Method Collection Time Receive d Time (Source) Location / / Volume Laterality 06/04/2011 1:02 PM 2 8:20 [employer] PM [employer] Narrative HP CONVERSION - 06/04/2011 9:07 PM [employer] Performed at [facility], [address] [place] [address] Lilian Persaud DO LAB_1 Performing Organization Address [facility] Phon e Number HP CONVERSION documented in this encounter Visit Diagnoses Diagnosis 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 documented in this encounter Care Teams Tubular Products Fabricator Relationship Specialty Start Date End Date Lilian Persaud DO PCP - General 12/23/10 05/16/12 1415 [address] [address] documented as of this encounter
--- OUTSIDE RECORDS SUMMARY | 2022-02-14 10:50 | XMS_ITS | Encounter Summary ---
:1970 Author Organization [facility] Address [address] [address] Care Team Providers Name Role Phone Lilian Persaud DO Primary Care Provider Encounter Details Date Type Department Care Team Description 06/11/2011 Notes/Orders [facility] Eliana Kumar, [address] . [place] [address] Social History Tobacco Use Types Packs/Day Years Used Date Smoking Tobacco: Never Assessed Sex Assigned at Date Recorded Not on file documented as of this encounter Plan of Treatment Not on filedocumented as of this encounter Visit Diagnoses Not on filedocumented in this encounter Care Teams Pumper Gager Relationship Specialty Start Date End Date Lilian Persaud DO PCP - General 12/23/10 05/16/12 1415 [place] [place] [id number] documented as of this encounter
--- OUTSIDE RECORDS SUMMARY | 2022-02-14 10:50 | XMS_ITS | Encounter Summary ---
:1970 Author Organization [employer] Address [address] [place] [address] Care Team Providers Name Role Phone Lilian Persaud DO Primary Care Provider Reason for Visit Reason Comments Patient Calling Back Encounter Details Date Type Department Care Team Description 06/11/2011 Telephone [facility] Lilian Persaud DO Patient Calling Back Medicine [address] [facility] [address] [place] [address] [place] [address] [phone] Social History Tobacco Use Types Packs/Day Years Used Date Smoking Tobacco: Never Assessed Sex Assigned at Date Recorded Not on file documented as of this encounter Nursing Notes Jacqueline Vizcaino - 06/15/2011 2:35 PM CST pt informed of the dose changes and will f/u on Tuesday with his readings-pt understood changes and had no further questions. CTION SOCIAL WORKER Lilian Persaud DO - 06/15/2011 2:21 PM CST I was able to speak with sprinkler irrigation equipment mechanic yarn examiner skeins who rec increase Lantus from 50 to 60 units subcutaneous q HS. Also, increase Novolog from 12 units to 20 units TID with meals. Have him call Tuesday am with BS readings. Pt will get a call to see endocrine early than his July appointment. CTION SOCIAL WORKER Marci Oliveira RN - 06/15/2011 10:52 AM CST Pt calling back with update on BS and medication dosing; pt has been taking Novolog 12 U TID and Lantus 50U at HS. 06/13: BS at 0700 304, 5p 320, and 10p 393, 06/14: BS 309,321,360 (same testing times) and today 06/15 thus far BS was 285. to PCP to review and advise CTION SOCIAL WORKER Andie Adams - 06/15/2011 10:46 AM CST [...] Novolog if low BS from newLantus pen. CTION SOCIAL WORKER Maximilian Ag - 06/11/2011 11:29 AM CST Patient calling to report recent blood sugars Has been taking Lantus and Novonlog and Metformin Numbers are on 06/08 AM 295 PM 315 Hs 340 On 06/09 AM 295 PM 393 HS 410 On 06/10 AM 300 PM 320 HS 392 On 06/11 AM 315 PLease call with plan of care Call [phone] Maximilian Ag - 06/11/2011 11:26 AM CST CTION SOCIAL WORKER Lori Winkler - 06/11/2011 11:21 AM CST Non -Symptom Message from Front Line Primary Care Provider: Lilian Persaud DO Message: calling in numbers from another blood test CTION SOCIAL WORKER documented in this encounter Plan of Treatment Not on filedocumented as of this encounter Visit Diagnoses Diagnosis Type II or unspecified type diabetes jasen litus without mention of complication, uncontrolled - Primary documented in this encounter Care Teams Coding Tech Relationship Specialty Start Date End Date Lilian Persaud DO PCP - General 12/23/10 05/16/12 1415 [place] [place] [id number] documented as of this encounter
--- OUTSIDE RECORDS SUMMARY | 2022-02-14 10:50 | XMS_ITS | Encounter Summary ---
:1970 Author Organization [employer] Address [address] [place] [address] Care Team Providers Name Role Phone Lilian Persaud DO Primary Care Provider Reason for Visit Reason Comments Information Encounter Details Date Type Department Care Team Description 06/25/2011 Telephone [employer] [facility] Lilian Persaud DO Information [address] [address] [place] [address] [place] [address] [phone] (Wo rk) Social History Tobacco Use Types Packs/Day Years Used Date Smoking Tobacco: Never Assessed Sex Assigned at Date Recorded Not on file documented as of this encounter Nursing Notes Jacqueline Herrera LPN - 06/25/2011 3:26 PM CST LM with info. SEALING INSPECTOR Lilian Persaud DO - 06/25/2011 1:49 PM CST Looking back on notes, his sugars are finally starting to come down. Have pt increase Lantus to 75 units subcutaneous at hs. Have pt increase Novolog at 28 units tid with meals. Call Tuesday with BS readings. SEALING INSPECTOR Tatyana Christian RN - 06/25/2011 11:11 AM CST Spoke with pt. Pt is calling to give Dr. Persaud updated blood glucose readings 06/22 282 am, 330 @4-5 pm, 370 @bedtime. 178 am, 268 @4-5pm and 341 @bedtime, 06/23 224 am, 279 @4-5 pm 331 @bedtime. Today 06/24 231 am. Please call pt back with plan. SEALING INSPECTOR Joellen Holm. - 06/25/2011 11:03 AM CST Non -Symptom Message from Front Line Primary Care Provider: Lilian Persaud DO Message: pt calling to give blood sugar test results to nurse. SEALING INSPECTOR documented in this encounter Plan of Treatment Not on filedocumented as of this encounter Visit Diagnoses Diagnosis Type II or unspecified type diabetes jasen litus without mention of complication, uncontrolled - Primary documented in this encounter Care Teams Line Manager Relationship Specialty Start Date End Date Lilian Persaud DO PCP - General 12/23/10 05/16/12 1415 [place] [id number] documented as of this encounter
--- OUTSIDE RECORDS SUMMARY | 2022-02-14 10:50 | XMS_ITS | Encounter Summary ---
:1970 Author Organization [employer] Address [address] [place] [address] Care Team Providers Name Role Phone Lilian Persaud DO Primary Care Provider Reason for Visit Reason Comments YING Diabetes Encounter Details Date Type Department Care Team Description 09/01/2011 Office Visit [facility] Lilian Persaud, DM w/o complication type II, uncontrolled (Primary Dx); Medicine DO [facility] wart; [address] [facility] [address] [place] [address] [place], [place] [phone] Social History Tobacco Use Types Packs/Day Years [...] Body Mass Index 33.33 06/07/2011 10:38 AM PUTTY TINTER MAKER documented in this encounter Progress Notes Lilian [...] is not able to afford endocrinology or hospital educator appts. Pt feels great, gained 4 pounds. [...] DESTRUCT BENIGN SKIN LESIONS UP TO 14 33681 Wart - DESTRUCT BENIGN SKIN LESIONS UP TO 14 06974 Other Orders - nicotine (NICODERM CQ) 21 [...] of warts today. patient advised to use alva-jiu-pqnowav wart removal therapies between office visits. patient [...] unspecified documented in this encounter Care Teams Cis Coordinator Relationship Specialty Start Date End Date Lilian Persaud DO PCP - General 12/23/10 05/16/12 1415 [place] [address] documented as of this encounter
--- OUTSIDE RECORDS SUMMARY | 2022-02-14 10:50 | XMS_ITS | Encounter Summary ---
:1970 Author Organization [employer] Address [address] [place] [address] Care Team Providers Name Role Phone Lilian Persaud DO Primary Care Provider Reason for Visit Reason Comments Diabetes WART Encounter Details Date Type Department Care Team Description 10/05/2011 Office Visit [facility] Lilian Persaud, DM w/o complication type II, uncontrolled (Primary Dx); Medicine DO Plantar wart; [address] [address] [facility] CT Wart; [place] [address] [place], [place] Warts, genital; [phone] [address] Skin lesion Social History Tobacco Use [...] DESTRUCT BENIGN SKIN LESIONS UP TO 14 07719 Wart - DESTRUCT BENIGN SKIN LESIONS UP TO 14 [address]3684 Warts, genital - CT DESTR PENIS CHARLESN,ARTUR,SURG EXCIS Skin lesion Patient will followup with cardiology and do fasting blood work in 3 months. continue present dose of insulins therapies , patient says this is an affordable option for him. Discussed goal of therapy with fasting blood sugar 80-110. Check hemoglobin A1c in one month. Monitor Patient requested retreatment of warts today. Discussed alternatives. patient advised to use usaz-sda-jgqdpii wart removal therapies between office visits. patient [...] tissue documented in this encounter Care Teams Quilting Machine Helper Relationship Specialty Start Date End Date Lilian Persaud DO PCP - General 12/23/10 05/16/12 1415 [place] [place] [address] documented as of this encounter
--- OUTSIDE RECORDS SUMMARY | 2022-02-14 10:50 | XMS_ITS | Encounter Summary ---
:1970 Author [facility] Address [address] [place] [address] Care Team Providers Name Role Phone Rolando Lopez DO Primary Care Provider Reason for Visit Reason Comments Pharmacy Encounter Details Date Type Department Care Team Description 07/13/2011 [facility], Pharmacy [address] [facility] . [address] [place] [address] [place] [address] [phone] (Wo rk) Social History Tobacco Use Types [...] LOPEZ Ordering User: VICKY LEYVA Resent to [employer] as ordered. IT Joellen Holm - 07/13/2011 [...] Primary documented in this encounter Care Teams Toe Stripper Relationship Specialty Start Date End Date Rolando Lopez DO PCP - General 12/23/10 05/16/12 1415 [place] [address] documented as of this encounter
--- OUTSIDE RECORDS SUMMARY | 2022-02-14 10:50 | XMS_ITS | Encounter Summary ---
:1970 Author Organization [employer] Address [address] [place] [address] Care Team Providers Name Role Phone Lilian Persaud DO Primary Care Provider Reason for Visit Reason Comments Information Encounter Details Date Type Department Care Team Description 08/06/[facility] DO Information [address] [address] [place] [address] [place] [address] [phone] (Wo rk) Social History Tobacco Use Types [...] he set up an appointment with an Reading Specialist () for follow up on his diabetes [...] and dinner Please encourage him to see atm mechanic for follow up and med management. Call [...] Primary documented in this encounter Care Teams Precision Mechanical Instrument Maker Relationship Specialty Start Date End Date Lilian Persaud DO PCP - General 12/23/10 05/16/12 1415 [place] [address] documented as of this encounter
--- OUTSIDE RECORDS SUMMARY | 2022-02-14 10:50 | XMS_ITS | Encounter Summary ---
:1970 Author Organization [employer] Address [address] [place] [address] Care Team Providers Name Role Phone Lilian Persaud DO Primary Care Provider Reason for Visit Reason Comments Diabetes WART Encounter Details Date Type Department Care Team Description 05/26/2011 Office Visit [facility] Lilian Persaud, DM w/o complication type II, uncontrolled (Primary Dx); Medicine DO Other disorders of lipoid metabolism; [address] [address] [facility] [address] Cor athrscl-uns vessel; [place] [address] [place], [place] Plantar wart; [phone] Tobacco use disorder Social History Tobacco Use Types Packs/Day Years Used Date Smoking Tobacco: Never Assessed Sex Assigned at Date Recorded Not on file documented as of this encounter Last Filed Vital Signs Vital Sign Reading Time Taken Comments Blood Pressure 124/89 05/26/2011 1:53 PM SHAREPOINT ENGINEER Pulse 88 05/26/2011 1:53 PM SHAREPOINT ENGINEER Temperature - - Respiratory Rate - - Oxygen Saturation - - Inhaled Oxygen Concentration - - Weight 98 kg (216 lb) 05/26/2011 1:53 PM SHAREPOINT ENGINEER Height - - Body Mass Index 31.44 01/22/2011 11:08 AM CDT documented in this encounter Patient Instructions Patient InstructionsLilian Persaud DO - 05/26/2011 2:41 PM CST use Lantus 30 units at night Tue, and then call clinic Tuesday morning with Fasting blood sugarreadings Decrease Metformin to 1000 mg daily Continue all other meds at usual dose EPOINT ENGINEER documented in this encounter Progress Notes Lilian Persaud DO - 05/26/2011 4:48 PM CST SUBJECTIVE: Chief Complaint Patient presents with ??? Diabetes concerned about high blood sugars ??? Verrucous Vulgaris lt foot History of present illness: 41 y.o. male presents for followup multiple concerns. Patient has type 2 diabetes uncontrolled. Patient was put on several oral medications to maximal dose and continued to have elevated blood sugars with hemoglobin A1c of 9.9. Patient was started on Lantus 28 units and NovoLog 9 units t.i.d. with meals. This is going well for him. He continues on metformin, which causes nausea and vomiting. He is currently at 1500 mg metformin and wondering what dose he should do. He continues to have some mild nausea and gagging daily with metformin. He did have the dose raised in the past but worsened his symptoms. He has been checking his blood sugars 4 times a day. In the morning his blood sugar runs in the high 200s. Throughout the day is in the high 200s low 300s. Patient says his insurance does not are for him to go to the diabetes Center for further treatment or counseling. Despite his initial apprehension, Patient is happy with insulin-dependent no concerns or questions at this time. Patient has quit smoking. He is currently on a 21 mg NicoDerm patch and has one more week to go. He has had 3 cigarettes in the past month, and none in the past couple weeks. He would like a prescription for the tapering doses of NicoDerm patches. He is determined to make sure he quit smoking. Patient has a wart on his foot, tolerated cryotherapy as previously. Treated about a month ago without difficulty. He would like treatment again today. Patient had a heart attack last month with stent placement in 99% stenotic coronary artery, per patient. He is on Plavix which is going well. He has been taking Lipitor without any side effects, deniesmyalgias or arthralgias. Patient has followup appointment with cardiology June 07 and . He is wondering how long he needs to be on Plavix. Patient started carvedilol, medication compliant. No chest pain. Patient says his right inguinal area has healed nicely. Patient was told he needed blood work to check his liver function test one month after starting Lipitor which would be about now. He does not know when his last cholesterol was done. Patient continues to take his other medications without difficulty. Patient does not need refills at this time. Denies any high blood pressures. Lab Results Component Value Date/Time Cholesterol 280* 04/06/2011 13:53 HDL Cholesterol 30* 04/06/2011 13:53 Triglycerides 384* 04/06/2011 13:53 LDL Calculated 173* 04/06/2011 13:53 LDL Direct 159* 11/30/2000 11:20 Past Medical History Diagnosis Date ??? Tobacco [...] with stent 05/26/2011 ??? Plantar wart 05/26/2011 Past Surgical History Procedure Date ??? Coronary [...] aspart (NOVOLOG FLEXPEN) 100 unit/mL InPn Inject 9 Units subcutaneously 3 times daily (before meals). 250.02 take 5-15 min before meal Indications: DIABETES MELLITUS 8.1 mL 12 ??? DISCONTD: insulin glargine (LANTUS SOLOSTAR) 100 unit/mL (3 mL) InPn Inject 28 Units subcutaneously. 250.02 take at 10 p.m. daily Indications: DIABETES MELLITUS 15 mL 11 ??? lisinopril (PRINIVIL, ZESTRIL) 5 mg tablet Take 1 tablet by mouth daily (every 24 hours). Indications: HYPERTENSION 90 tablet 1 ??? metFORMIN (GLUCOPHAGE-XR) 500 mg 24 hr tablet Take 2 tablets by mouth nightly. Indications: TYPE2 DIABETES MELLITUS 60 tablet 1 ??? omega-3 fatty acids-fish oil [...] of positives in HPI. OBJECTIVE: Filed Vitals: 05/26/11 1353 BP: 124/89 Pulse: 88 Weight: 216 lb (97.977 kg) General: Patient alert, in NAD. Head: Normocephalic. Eyes: PERRLA, full EOM. External exams resolving stye on his left mid upper lid. Extremities: no edema CV: Regular rate without murmurs, rubs or gallops. Resp: Clear to auscultation without crackles, wheezes or distress. Abdomen: bowel sounds present, soft, non-tender, without hepatosplenomegaly, masses, or hernias. Skin: 4-5 mm wart on left great toe Psychiatric: Alert & oriented with normal affect and insight, does not appear depressed or anxious. Timur was seen today for diabetes and verrucous vulgaris. Diagnoses and associated orders for this visit: Dm w/o complication type ii, uncontrolled - insulin glargine (LANTUS SOLOSTAR) 100 unit/mL (3 mL) InPn; Inject 30 Units subcutaneously nightly. 250.02 take at 10 p.m. daily Indications: DIABETES MELLITUS Dyslipidemia - Cholesterol Fraction-LDLD If Trig High; Future - Alanine Aminotransferase; Future - Aspartate Aminotransferase; Future - CPK; Future Cad Plantar wart - DESTRUCT BENIGN SKIN LESIONS UP TO 14 [address]843 Tobacco use disorder - nicotine (NICODERM CQ) 14 mg/24 hr; Place 1 patch onto the skin every 24 hours. Remove after 16-24hours. - nicotine (NICODERM CQ) 7 mg/24 hr; Place 1 patch onto the skin every 24 hours. Remove after 16-24 hours. Increase Lantus from 28 to 30 units x2 days, call with blood sugar readings on Tuesday. Likely increased to 32 units over the weekend and followup of blood sugars next week. Continue present treatment with NovoLog 9 units t.i.d. with meals. Decrease metformin from 1500 mg to 1000 mg daily to hopefully decrease nausea and gaging sensation. Hemoglobin A1c check end of June. Patient return to the office in one week for fasting cholesterol and liver function testing. Patient will followup with cardiology and asked a question of length of therapy for Plavix, patient will need refills soon. Plantar wart treated today with freeze and thaw cycle x4. Patient tolerated well. Patient encouraged to continue to quit smoking, NicoDerm patches prescribed and signed for him to pick up driver as needed. Patient aware of cessation plan and titration of nicotine patch. Patient will call next week as planned. Followup mid-June, sooner if any new or worsening symptoms should occur. Patient discharged in stable condition. 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
--- OUTSIDE RECORDS SUMMARY | 2022-02-14 10:50 | XMS_ITS | Encounter Summary ---
:1970 Author Organization [employer] Address [address] [place] [address] Care Team Providers Name Role Phone Lilian Persaud DO Primary Care Provider Reason for Visit Reason Comments RESULTS, TEST Encounter Details Date Type Department Care Team Description 06/08/2011 Notes/Orders Lilian Camejo yceridemia Medicine DO [place] (Primary Dx) [address] [address] [facility] [place] [address] [place], [place] [phone] [address] Social History Tobacco Use Types Packs/Day Years Used Date Smoking Tobacco: Never Assessed Sex Assigned at Date Recorded Not on file documented as of this encounter Progress Notes Lilian Persaud DO - 06/11/2011 9:39 AM CST Pt just had Lipitor raised to 80 mg. Triglycerides still very high. Pt taking fish oil, fenofibrate,gemfibrozil. I there any other changes to medication therapy that would be appropriate? Results for orders placed in visit on 06/04/11 LAB CHOLESTEROL FRACTION-LDLD IF TRIG HI Component Value Range ??? Cholesterol 204 (*) 0-200 (mg/dL) ??? Triglycerides 593 (*) 0-149 (mg/dL) ? ? HDL Cholesterol 29 (*) >39 (mg/dL) ??? Cholesterol/HDL Ratio Screen 7.0 ??? Length Of Fast 12.0 LAB ALANINE AMINOTRANSFERASE Component Value Range ??? Alanine Aminotransferase 69 (*) 4-55 (U/L) LAB ASPARTATE AMINOTRANSFERASE Component Value Range ??? Aspartate Aminotransferase 38 0-45 (U/L) LAB CPK Component Value Range ??? Creatine Kinase 60 0-225 (U/L) LAB LDL CHOL DIRECT MEASURE Component Value Range ??? LDL Direct 115 0-130 (mg/dL) HPI Review of Systems Physical Exam Lilian Persaud DO - 06/11/2011 9:38 AM CST Noted changes. Thanks! ET SPECIALIST Eliana Kumar RN - 06/10/2011 10:28 AM CST Pt. informed and med list updated and new RX faxed. ET SPECIALIST Vanessa Ram PA-C - 06/09/2011 11:42 PM CST Keri, please advise that he increase his fish oil to 2 capsules twice a day along with the increase in Lipitor. Also remind him that improved glucose control with help decrease his triglycerides as they are made of sugars and fats. Thanks! Vanessa Mayo PA-C - 06/09/2011 11:39 PM CST 1. Keri, please confirm his medications. Gemfibrozil was not on his medication list when I saw him this week, and he should not be taking gemfibrozil, fenofibrate, and lipitor. If he is taking it, gemfibrozil should be discontinued. If he has continued on all three, that may be why his liver function test was mildly elevated. 2. Please also confirm his fish oil dose. He should be getting 2,000 mg of EPA + DHA, which usually translates into 5-6 capsules daily. It is unclear if maybe he is just taking two 1,000mg capsules or the higher amount. This will help decrease his triglycerides. Repeat labs as we discussed at his recent visit. Thanks! ET SPECIALIST Eliana Kumar, RN - 06/09/2011 11:44 AM CST I reviewed medications with Timur and he is not taking the Gemfibrozil . His fish oil is actuallya rx he said and is taking as listed on the med list fish oil 340-1,000 and he takes 2 a day. Did you want him to increase that rx? Thanks ET SPECIALIST documented in this encounter Plan of Treatment Not on filedocumented as of this encounter Visit Diagnoses Diagnosis Hypertriglyceridemia (HRC) - Primary Pure hyperglyceridemia documented in this encounter Care Teams Watchmaking Teacher Relationship Specialty Start Date End Date Lilian Persaud DO PCP - General 12/23/10 05/16/12 [facility] [place] [address] documented as of this encounter
--- OUTSIDE RECORDS SUMMARY | 2022-02-14 10:50 | XMS_ITS | Encounter Summary ---
:1970 Author Organization [employer] Address [address] [place] [address] Care Team Providers Name Role Phone Lilian Persaud DO Primary Care Provider Reason for Visit Reason Comments Diabetes Encounter Details Date Type Department Care Team Description 06/29/2011 [facility] DO Diabetes [address] [address] [place] [address] [place] [address] [phone] (Wo rk) Social History Tobacco Use Types Packs/Day Years Used Date Smoking Tobacco: Never Assessed Sex Assigned at Date Recorded Not on file documented as of this encounter Nursing Notes Freya Hess - 06/29/2011 1:26 PM CST Notified pt. of notes below. Pt. understood and acknowledged information. And confirmed that he willbe going to his Endocrine appt on 07/05 at 4:30pm RMATION CLERK [employer] Lilian Persaud DO - 06/29/2011 12:57 PM [...] may be a factor with sugar management. [employer]ATION CLERK [employer] Sarah Leon - 06/29/2011 10:28 AM CST [...] you have any new instructions or not [employer]ATION CLERK [employer] Jo Cruz - 06/29/2011 10:21 AM CST Non -Symptom Message from Front Line Primary Care Provider: Lilian Persaud DO Message: Pt requesting to speak with a nurse regarding his diabetes. [employer]ATION CLERK [employer] documented in this encounter Plan of Treatment Not on filedocumented as of this encounter Visit Diagnoses Diagnosis Type II or unspecified type diabetes jasen litus without mention of complication, uncontrolled - Primary documented in this encounter Care Teams Pipe Stem Aligner Relationship Specialty Start Date End Date Lilian Persaud DO PCP - General 12/23/10 05/16/12 [address] [place] [address] documented as of this encounter
--- OUTSIDE RECORDS SUMMARY | 2022-02-14 10:50 | XMS_ITS | Encounter Summary ---
:1970 Author Organization [employer] Address [address] [place] [address] Care Team Providers Name Role Phone Cori Rolando Luther DO Primary Care Provider Reason for Visit Reason Comments Coronary Artery Disease (CAD) Encounter Details Date Type Department Care Team Description 09/16/2011 Office Visit [facility] Stevenson Greene, Cor athrscl-uns vessel; [address] Other disorders of lipoid metabolism; [address] DM w/o complication type II, uncontrolle d; [place] [address] [place], [place] Nonspecific abnormal results of liver function study; [phone] S/P angioplasty with stent; [phone] (Wo rk) OR, old; History o f PTCA; Morbid obesity [...] 2:58 PM CDT call with any questions [phone] Keri RN documented in this encounter Progress Notes Stevenson Greene MD - 09/16/2011 3:07 PM CDT Progress Notes signed by Stevenson Greene MD at 09/17/11925 Author: Stevenson Greene MD Service: (none) Author Type: Physician Filed: 09/17/11925 Note Time: 09/16/111506 Status: Signed Machine Designer: Stevenson Greene MD (Physician) NAME: SHARLENE VARNER MR#: [id number] CSN: [id number] AUTHENTICATING CLINICIAN: Stevenson Greene MD CONFIRM #: [id number] LOC: 3205 CLINIC PROGRESS NOTE DATE OF VISIT: 09/16/2011 : 1970 CHIEF COMPLAINT: Followup for coronary artery disease, issues with medications. HISTORY OF PRESENT ILLNESS: Mr. Varner is a 41-year-old male with diabetes mellitus, dyslipidemia, a previous history of smoking, who had been admitted to [facility] for a myocardial infarction in the beginning [...] factor modifications. CC: ROLANDO PERSAUD DO [address] [facility] [place] [address] MKK:BREANNA C: CONFIRM #: [id number] documented in this encounter Plan of Treatment Not on filedocumented as of this encounter Visit Diagnoses Diagnosis Coronary atherosclerosis of unspecified type of vessel, [place] or graft (HRC) Coronary atherosclerosis of unspecified type of vessel, [place] or graft 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 Type II or unspecified type diabetes jasen litus without mention of complication, uncontrolled Nonspecific abnormal results of liver fu nction study S/P angioplasty with stent Postsurgical percutaneous transluminal c oronary angioplasty status OR, old (HRC) Old myocardial infarction History of PTCA Postsurgical percutaneous transluminal c oronary angioplasty status Morbid obesity (HRC) Morbid obesity documented in this encounter Care Teams Table Maker Relationship Specialty Start Date End Date Rolando Persaud DO PCP - General 12/23/10 05/16/12 [address] [facility] [id number] documented as of this encounter
--- OUTSIDE RECORDS SUMMARY | 2022-02-14 10:50 | XMS_ITS | Encounter Summary ---
:1970 Author Organization [employer] Address [address] [place] [address] Care Team Providers Name Role Phone Lilian Persaud DO Primary Care Provider Reason for Visit Reason Comments Other Encounter Details Date Type Department Care Team Description 09/02/2011 Telephone [facility] Lilian Persaud, DO Other [address] [address] [place] [address] [place] [address] [phone] (Wo rk) Social History Tobacco Use Types [...] on filedocumented in this encounter Care Teams Model Maker Plaster Relationship Specialty Start Date End Date Lilian Persaud DO PCP - General 12/23/10 05/16/12 [address] [place] [address] documented as of this encounter
--- OUTSIDE RECORDS SUMMARY | 2022-02-14 10:50 | XMS_ITS | Encounter Summary ---
:1970 Author Organization [employer] Address [address] [place] [address] Care Team Providers Name Role Phone Lilian Persaud DO Primary Care Provider Reason for Visit Reason Comments UPDATE Encounter Details Date Type Department Care Team Description 05/28/2011 Telephone [facility] Lilian Persaud DO UPDATE [address] [address] [place] [address] [place] [address] [phone] (Wo rk) Social History Tobacco Use Types Packs/Day Years Used Date Smoking Tobacco: Never Assessed Sex Assigned at Date Recorded Not on file documented as of this encounter Nursing Notes Jacqueline Herrera LPN - 05/28/2011 3:39 PM CST LM with info [employer]OL [employer] DIE Lilian Persaud DO - 05/28/2011 12:13 PM [...] 05/27 289 2 hr PP: 05/27 396 [employer] Lizette Blas - 05/28/2011 11:32 AM CST Non -Symptom Message from Front Line Primary Care Provider: Lilian Persaud DO Message: Patient calling to give blood sugar results as requested. [phone] [employer] documented in this encounter Plan of Treatment Not on filedocumented as of this encounter Visit Diagnoses Diagnosis Type II or unspecified type diabetes jasen litus without mention of complication, uncontrolled - Primary documented in this encounter Care Teams Power Hammer Operator Relationship Specialty Start Date End Date Lilian Persaud DO PCP - General 12/23/10 05/16/12 [address] [place] [address] documented as of this encounter
--- OUTSIDE RECORDS SUMMARY | 2022-02-14 10:50 | XMS_ITS | Encounter Summary ---
:1970 Author Organization [employer] Address [address] [place] [address] Care Team Providers Name Role Phone Lilian Persaud DO Primary Care Provider Reason for Visit Reason Comments Diabetes Encounter Details Date Type Department Care Team Description 06/01/2011 Telephone [facility] Lilian Persaud DO Diabetes [address] [address] [place] [address] [place] [address] [phone] (Wo rk) Social History Tobacco Use Types Packs/Day Years Used Date Smoking Tobacco: Never Assessed Sex Assigned at Date Recorded Not on file documented as of this encounter Nursing Notes Jacqueline Herrera LPN - 06/01/2011 4:11 PM CST Pt informed. Having no symptoms of hypoglycemia ERADISH GRINDER Lilian Persaud DO - 06/01/2011 3:06 PM CST Have him increase Lantus to 35 units for 3 days, call Tuesday morning with Fasting Blood sugar readings ERADISH GRINDER Tatyana Christian RN - 06/01/2011 2:52 PM CST Spoke with pt. Pt is calling in his fasting am blood glucose readings to report to Dr. Persaud for possible Lantus adjustment. 24: 274 25: 284 26: 287 2: 284 No other sx to report. please call with plan. Call back number listed. To Dr. Persaud ERADISH GRINDER Ale Fountain - 06/01/2011 2:39 PM CST Calling in with his readings. ERADISH GRINDER documented in this encounter Plan of Treatment Not on filedocumented as of this encounter Visit Diagnoses Diagnosis Type II or unspecified type diabetes jasen litus without mention of complication, uncontrolled - Primary documented in this encounter Care Teams Thai Masseur Relationship Specialty Start Date End Date Lilian Persaud DO PCP - General 12/23/10 05/16/12 [address] [address] documented as of this encounter
--- OUTSIDE RECORDS SUMMARY | 2022-02-14 10:50 | XMS_ITS | Encounter Summary ---
:1970 Author Organization [facility] Address [address], [place] [address] Care Team Providers Name Role Phone Lilian Persaud DO Primary Care Provider Reason for Visit Reason Comments Appt. Needed Encounter Details Date Type Department Care Team Description 06/15/2011 Telephone [facility] [address] Rosalinda Calhoun cca, MD Appt. Needed Endocrinology [address] [place] [address] [place], [place] [address] [phone] Social History Tobacco Use Types Packs/Day Years [...] on filedocumented in this encounter Care Teams Lab Nurse Relationship Specialty Start Date End Date Lilian Persaud DO PCP - General 12/23/10 05/16/12 [address] [address] documented as of this encounter
--- OUTSIDE RECORDS SUMMARY | 2022-02-14 10:50 | XMS_ITS | Encounter Summary ---
:1970 Author Organization [employer] Address [address] [place] [address] Care Team Providers Name Role Phone Lilian Persaud DO Primary Care Provider Reason for Visit Reason Comments Diabetes WART Encounter Details Date Type Department Care Team Description 11/02/2011 Office Visit [facility] Lilian Persaud, DM w/o complication type II, uncontrolled (Primary Dx); Medicine DO Plantar wart; [address] [place] [address] [place], [place] [phone] [address] Social History Tobacco Use Types Packs/Day Years [...] is still remaining. He has been using [id number] salicylic acid treatments. Patient tolerated procedure last [...] DESTRUCT BENIGN SKIN LESIONS UP TO 14 83[address] Wart - DESTRUCT BENIGN SKIN LESIONS UP TO 14 [address] Plan: 1. Liquid nitrogen was applied to [...] documented in this encounter Care Teams Glass Beveller Relationship Specialty Start Date End Date Lilian Persaud DO PCP - General 12/23/10 05/16/12 [address] [address] documented as of this encounter
--- OUTSIDE RECORDS SUMMARY | 2022-02-14 10:50 | XMS_ITS | Encounter Summary ---
:1970 Author Organization [facility] Address [address] [place] [address] Care Team Providers Name Role Phone Lilian Persaud DO Primary Care Provider Reason for Visit Reason Comments Chest Pain Encounter Details Date Type Department Care Team Description 08/19/2011 Nurse Triage [facility] Lilian Persaud DO Chest Pain [address] [address] [place] [address] [place] [address] [phone] (Wo rk) Social History Tobacco Use Types Packs/Day Years Used Date Smoking Tobacco: Never Assessed Sex Assigned at Date Recorded Not on file documented as of this encounter Nursing Notes Diane Hernández RN - 08/19/2011 5:32 PM CDT Protocol: CHEST [id number] Affirmative: [1] Pain lasting > 5 minutes AND [2] age > 30 AND [3] at least one cardiac risk factor (i.e., hypertension, diabetes, obesity, smoker or strong family history of heart disease) Disposition of Call 911 suggested. Pt. calling, history of [place] in 05/06.Pt. developed severe CP and numbness to left arm 1 hr. ago. [place] ASA is not on Nitro. No sweating, no nausea. documented in this encounter Plan of Treatment Not on filedocumented as of this encounter Visit Diagnoses Not on filedocumented in this encounter Care Teams Title Searcher Relationship Specialty Start Date End Date Lilian Persaud DO PCP - General 12/23/10 05/16/12 [address] [address] documented as of this encounter
--- OUTSIDE RECORDS SUMMARY | 2022-02-14 10:50 | XMS_ITS | Encounter Summary ---
:1970 Author Organization [employer] Address [address] [place] [address] Care Team Providers Name Role Phone Lilian Persaud DO Primary Care Provider Reason for Visit Reason Comments Refill Encounter Details Date Type Department Care Team Description 09/14/2011 Refill [facility] Lilian Persaud DO Refill [address] [address] [place] [address] [place] [address] [phone] (Wo rk) Social History Tobacco Use Types Packs/Day Years Used Date Smoking Tobacco: Never Assessed Sex Assigned at Date Recorded Not on file documented as of this encounter Nursing Notes Lilian Persaud DO - 09/14/2011 4:36 PM CDT refills faxed of Lisinopril Marci Oliveira RN - 09/14/2011 4:19 PM CDT to PCP to address refill, pt given one month refill 07/30/11 and advised OV is needed, last protocol labs 04/30/11, pt recently seen for DM 08/10 and 09/01/11. Would you like to refill med based on most recent OV? Or does pt still need specific HTN OV/med check? pt does have appt 09/21/11 please advise documented in this encounter Plan of Treatment Not on filedocumented as of this encounter Visit Diagnoses Not on filedocumented in this encounter Care Teams Power Mule Operator Relationship Specialty Start Date End Date Lilian Persaud DO PCP - General 12/23/10 05/16/12 [address] [place] [id number] documented as of this encounter
--- OUTSIDE RECORDS SUMMARY | 2022-02-14 10:50 | XMS_ITS | Encounter Summary ---
:1970 Author Organization [employer] Address [address] [place] [address] Care Team Providers Name Role Phone CoriLilian li Primary Care Provider Reason for Visit Reason Comments Refill Encounter Details Date Type Department Care Team Description 09/13/2011 Refill [facility] Stevenson Greene MD Refill [address] [facility] . [address] [place] [address] [place], [place] [id number] (Wo rk) Social History Tobacco Use Types [...] documented in this encounter Care Teams Vp Account Director Relationship Specialty Start Date End Date Lilian Persaud DO PCP - General 12/23/10 05/16/12 [address] [place] [address] documented as of this encounter
--- OUTSIDE RECORDS SUMMARY | 2022-02-14 10:50 | XMS_ITS | Encounter Summary ---
:1970 Author Organization [employer] Address [address] [place] [address] Care Team Providers Name Role Phone Lilian Persaud DO Primary Care Provider Reason for Visit Reason Comments Medication Problems Encounter Details Date Type Department Care Team Description 07/27/2011 Refill [facility] Lilian Persaud DO Medication Problems [address] [address] [place] [address] [place] [address] [phone] (Wo rk) Social History Tobacco Use Types [...] regarding insulin. Its $25 per vial at [facility] there are 1000 units in each vial. Please have Dr Persaud call back as to what is decided regarding his insulin. Lilain Castillo DO - 07/28/2011 3:05 PM CDT I spoke with nurse educator who rec trying [facility] for generic low cost insulin. She also rec writing for a larger vial of insulin quantity to only have 1 co-pay. I relayed this info to the pt, he doesn't have co-pays at this point, he pays entirely for his meds.He was advised to call [facility] and check in to cheapest insulin available and I will rx new insulin. I did look online to see if I could get prices, but not available. Pt will call back with any questions. I will await his call for insulin info and then do new rx. Lilian Castillo DO - 07/28/2011 11:09 AM CDT spoke with member of [facility] education, awaiting call back from nurse to provide info for pt. She thinks [facility] has free assistance. Lilian Castillo DO - [...] Primary documented in this encounter Care Teams Firer Boiler Relationship Specialty Start Date End Date Lilian Persaud DO PCP - General 12/23/10 05/16/12 [address] [place] [id number] documented as of this encounter
--- OUTSIDE RECORDS SUMMARY | 2022-02-14 10:50 | XMS_ITS | Encounter Summary ---
:1970 Author Organization [facility] Address [address] [place] [address] Care Team Providers Name Role Phone Lilian Persaud DO Primary Care Provider Reason for Visit Reason Comments Refill Encounter Details Date Type Department Care Team Description 07/30/2011 Refill [facility] Lilian Persaud DO Refill [address] [facility] . [address] [place] [address] [place] [address] [phone] (Wo rk) Social History Tobacco Use Types [...] on filedocumented in this encounter Care Teams Tire Center Manager Relationship Specialty Start Date End Date Lilian Persaud DO PCP - General 12/23/10 05/16/12 1415 [facility] [place] [address] documented as of this encounter
--- OUTSIDE RECORDS SUMMARY | 2022-02-14 10:50 | XMS_ITS | Encounter Summary ---
:1970 Author Organization [employer] Address [address] [place] [address] Care Team Providers Name Role Phone Lilian Persaud Primary Care Provider Reason for Visit Reason Comments Missed Appointment Encounter Details Date Type Department Care Team Description 05/19/2011 Telephone [facility] Vanessa Ram PA-C Missed Appointment 15[address] [facility] . [address] [place] [address] [place], [place] [phone] (Wo rk) Social History Tobacco Use Types [...] it for the end of June. Thanks! ER PRINTING MACHINE OPERATOR Aviva Bowles, RN - 05/19/2011 11:41 AM [...] he does not want to drive to [facility] for an earlier appointment with Vanessa Ram. He will call in the meantime if he experiences any issues. OK to wait until 06/07? Thanks. documented in this encounter Plan of Treatment Not on filedocumented as of this encounter Visit Diagnoses Not on filedocumented in this encounter Care Teams Grounds Manager Relationship Specialty Start Date End Date Lilian Persaud DO PCP - General 12/23/10 05/16/12 [address] [place] [id number] documented as of this encounter
--- OUTSIDE RECORDS SUMMARY | 2022-02-14 10:50 | XMS_ITS | Encounter Summary ---
:1970 Author Organization [employer] Address [address], [place] [address] Care Team Providers Name Role Phone Lilian Persaud DO Primary Care Provider Reason for Visit Reason Comments Diabetes WART Fungus Encounter Details Date Type Department Care Team Description 08/11/2011 Office Visit [facility] Lilian Persaud, DM w/o complication type II, uncontrolled (Primary Dx); Medicine DO Dermatophytosis of the body; [address] [address] [address] T Plantar wart; [address] [place], [place] Wart; [place] [address] Other disorders of lipoid metabolism [phone] Social History Tobacco Use Types Packs/Day Years [...] Body Mass Index 32.75 06/07/2011 10:38 AM MED SPECIALIST documented in this encounter Patient Instructions Patient [...] up multiple issues. Diabetes:Patient informs me that np is not covered under his health insurance [...] DESTRUCT BENIGN SKIN LESIONS UP TO 14 [address] Wart - DESTRUCT BENIGN SKIN LESIONS UP TO 14 [id number] Dyslipidemia will increase his both insulins to [...] metabolism documented in this encounter Care Teams Account Review Specialist Relationship Specialty Start Date End Date Lilian Persaud DO PCP - General 12/23/10 05/16/12 [address] [place] [address] documented as of this encounter
--- OUTSIDE RECORDS SUMMARY | 2022-02-14 10:50 | XMS_ITS | Encounter Summary ---
:1970 Author Organization [employer] Address [address] [place] [address] Care Team Providers Name Role Phone CoriLilian li Homa SAL Primary Care Provider Reason for Visit Reason Comments Coronary Artery Disease (CAD) Encounter Details Date Type Department Care Team Description 06/07/2011 Office Visit [facility] Vanessa Ram PA-C Cor athrscl-uns vessel; [address] [place] [address] Acute [place]; [address] [place], [place] Other disorders of lipoid me tabolism; [place] [address] DM w/o complication type II, uncontrolle d [phone] (Wo rk) Social History Tobacco Use Types Packs/Day Years Used Date Smoking Tobacco: Never Assessed Sex Assigned at Date Recorded Not on file documented as of this encounter Last Filed Vital Signs Vital Sign Reading Time Taken Comments Blood Pressure 112/76 06/07/2011 10:38 AM DIRECTOR OF KNOWLEDGE MANAGEMENT Pulse 84 06/07/2011 10:38 AM DIRECTOR OF KNOWLEDGE MANAGEMENT Temperature - - Respiratory Rate - - Oxygen Saturation - - Inhaled Oxygen Concentration - - Weight 97.3 kg (214 lb 6.4 oz) 06/07/2011 10:38 AM DIRECTOR OF KNOWLEDGE MANAGEMENT Height 176.5 cm (5' 9.5) 06/07/2011 10:38 AM DIRECTOR OF KNOWLEDGE MANAGEMENT Body Mass Index 31.21 06/07/2011 10:38 AM DIRECTOR OF KNOWLEDGE MANAGEMENT documented in this encounter Patient Instructions Patient InstructionsVanessa Ram PA-C - 06/07/2011 11:23 AM CST 1. Increase Lipitor to 80 mg daily (2 current 40 mg tablets, or 1 new 80 mg tablet). 2. Recheck ast, ck, cholesterol labs. Please contact the lab at [phone] to schedule a lab appointment at [facility] after a 12 hour fast, end of June. They will have the lab orders when you get there, so you are not responsible to bring a lab slip. CTOR OF KNOWLEDGE MANAGEMENT documented in this encounter Progress Notes Vanessa Ram PA-C - 06/07/2011 11:51 AM CST Cardiology Clinic Follow up Visit CLINIC PROGRESS NOTE VISIT DATE: 06/07/2011 Patient: Timur Krishnamurthy SUBJECTIVE: This is a pleasant patient present today for a post-hospitalization/post-angiogram visit. The patient was admitted to [facility] on April 29 with chest pain. He [...] 250.02 ??? Erectile dysfunction 607.84D ??? Acute TN 410.90BQ ??? ASHD (arteriosclerotic heart disease) 414.00B [...] (176.5 cm) Wt 214 lb 6.4 oz (11117 g) BMI 31.21 kg/m2 GENERAL: The patient [...] his cravings decrease. 5. Follow-up with a pricing analyst in 6 to 8 weeks to review [...] of modifying cardiac risk factors. CORNELIUS Wong [facility] documented in this encounter Plan of Treatment Not on filedocumented as of this encounter Visit Diagnoses Diagnosis Coronary atherosclerosis of unspecified type of vessel, chinik or graft (HRC) Coronary atherosclerosis of unspecified type of vessel, chinik or graft Acute TN (HRC) Acute myocardial infarction, unspecified site, episode of care unspecified 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 Type II or unspecified type diabetes jasen litus without mention of complication, uncontrolled documented in this encounter Care Teams Air Table Operator Relationship Specialty Start Date End Date Lilian Persaud DO PCP - General 12/23/10 05/16/12 [address] [place] [address] documented as of this encounter
--- OUTSIDE RECORDS SUMMARY | 2022-02-14 10:50 | XMS_ITS | Encounter Summary ---
:1970 Author Organization [facility] Address [address], [place] [address] Care Team Providers Name Role Phone Lilian Persaud DO Primary Care Provider Reason for Visit Reason Comments Refill Encounter Details Date Type Department Care Team Description 07/27/[address] [facility] [address] Rosalinda Calhoun cca, MD Refill Endocrinology [address] [place] [address] [place] [address] [phone] Social History Tobacco Use Types Packs/Day Years [...] Primary documented in this encounter Care Teams Asset Protection Manager Relationship Specialty Start Date End Date Lilian Persaud DO PCP - General 12/23/10 05/16/12 [address] [place] [address] documented as of this encounter
--- OUTSIDE RECORDS SUMMARY | 2022-02-14 10:51 | XMS_ITS | Encounter Summary ---
:1970 Author Organization [facility] Address [address] [place] [address] Care Team Providers Name Role Phone Lilian Persaud DO Primary Care Provider Reason for Visit Reason Comments Refill Encounter Details Date Type Department Care Team Description 03/25/2011 Refill [facility] Lilian Persaud, Refill [address] [address] [place] [address] [place] [address] [phone] (Wo rk) Social History Tobacco Use Types Packs/Day Years Used Date Smoking Tobacco: Never Assessed Sex Assigned at Date Recorded Not on file documented as of this encounter Nursing Notes Herlinda Lucio HUC - 03/26/2011 11:10 AM CST Patient informed RT HOUSEKEEPER Gagandeep Hinojosa MD - 03/25/2011 5:43 PM CST Call pt. Dose limited to 1000 mg BID for 30 days to see if med can be tolerated RT HOUSEKEEPER Judy Pittman RN - 03/25/2011 3:26 PM [...] on filedocumented in this encounter Care Teams Safety Fire Boss Relationship Specialty Start Date End Date Lilian Persaud DO PCP - General 12/23/10 05/16/12 [address] [place] [address] documented as of this encounter
--- OUTSIDE RECORDS SUMMARY | 2022-02-14 10:51 | XMS_ITS | Encounter Summary ---
:1970 Author Organization [employer] Address [address] [place] [address] Care Team Providers Name Role Phone Lilian Persaud DO Primary Care Provider Reason for Visit Reason Comments Refill Encounter Details Date Type Department Care Team Description 03/16/2011 Refill [facility] Lilian Persaud DO Refill [address] [address] [place] [address] [place] [address] [phone] (Wo rk) Social History Tobacco Use Types Packs/Day Years Used Date Smoking Tobacco: Never Assessed Sex Assigned at Date Recorded Not on file documented as of this encounter Nursing Notes Lilian Persaud DO - 03/17/2011 8:11 AM CST pt has an appt this afternoon at 2 pm. I will address refills at ov. UCTION MINER Maximilian Ag - 03/17/2011 7:40 AM CST last OV for diabetes 01/22/11 with recheck directed in 6 weeks but no protocol labs listed To primary documented in this encounter Plan of Treatment Not on filedocumented as of this encounter Visit Diagnoses Not on filedocumented in this encounter Care Teams Rv Repairer Relationship Specialty Start Date End Date Lilian Persaud DO PCP - General 12/23/10 05/16/12 [address] [place], [place] [address] documented as of this encounter
--- OUTSIDE RECORDS SUMMARY | 2022-02-14 10:51 | XMS_ITS | Encounter Summary ---
:1970 Author Organization [employer] Address [address] [place] [address] Care Team Providers Name Role Phone Lilian Persaud DO Primary Care Provider Reason for Visit Reason Comments LAB RESULTS Encounter Details Date Type Department Care Team Description 04/07/2011 [facility]aud DO LAB RESULTS [address] [facility] [address] [address] [place] [address] [place] [address] [phone] (Wo rk) Social History Tobacco Use Types [...] hyperglyceridemia documented in this encounter Care Teams Entry Level Account Manager Relationship Specialty Start Date End Date Lilian Persaud DO PCP - General 12/23/10 05/16/12 [address] [place], [place] [address] documented as of this encounter
--- OUTSIDE RECORDS SUMMARY | 2022-02-14 10:51 | XMS_ITS | Encounter Summary ---
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; [place], [place] DM renal m anif type II, uncontrolled; [address] [address] athrscl-uns vessel; [phone] Laboratory exam ination, unspecified; AMI NOS, unspec ified; Pure hyperglyce ridemia Social History Tobacco Use Types Packs/Day Years Used Date Smoking Tobacco: Never Assessed Sex Assigned at Date Recorded Not on file documented as of this encounter Last Filed Vital Signs Vital Sign Reading Time Taken Comments Blood Pressure 117/87 05/01/2011 8:00 AM BASKET MACHINE OPERATOR Pulse 82 05/01/2011 8:00 AM BASKET MACHINE OPERATOR Temperature 36.6 ??C (97.9 ??F) 05/01/2011 8:00 AM BASKET MACHINE OPERATOR Respiratory Rate 16 05/01/2011 8:00 AM BASKET MACHINE OPERATOR Oxygen Saturation 98% 05/01/2011 8:00 AM BASKET MACHINE OPERATOR Inhaled Oxygen Concentration - - Weight 100.3 kg (221 lb 3.2 oz) 04/29/2011 8:03 PM BASKET MACHINE OPERATOR Height - - Body Mass Index 32.2 01/22/2011 11:08 AM CDT documented in this encounter Discharge Summaries Tanesha Greene MD - 05/01/2011 3:21 PM CST Discharge Summaries signed by Tanesha Greene MD at 05/01/111818 Author: Tanesha Greene MD Service: (none) Author Type: Physician Filed: 05/01/111818 Note Time: 05/01/111520 Status: Signed Desizing Machine Operator Head End: Tanesha Greene MD (Physician) NAME: SHARLENE KRISHNAMURTHY MR#: [id number] CSN: [id number] AUTHENTICATING CLINICIAN: Tanesha Greene MD CONFIRM #: [id number] LOC: 1 HOSPITAL DISCHARGE SUMMARY DATE OF [...] inferior Q-waves. The patient was hospitalized at [facility] [place] [facility] in November 2009. CT angiogram at that time demonstrated no flow-limiting disease in the right coronary. His exercise nuclear stress test was normal. 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 PAST MEDICAL HISTORY: As noted earlier, hypertension, [...] 4 mg daily. CLAIREK:MEDWendy C: CONFIRM #: [id number] ET MACHINE OPERATOR documented in this encounter Medications at Time [...] hours). 1 12 capsuleIndications: Indications: Hypertriglyceridemia HYPERTRIGLYCERIDEMIA ([facility]) divalproex (DEPAKOTE) Take 2,000 mg by [...] to home today. He prefers follow-up in [place] and our schedulers will call him on Tuesday to arrange PA visit in 7- 10 days and Dry Plasterer Helper visitin 4-6 weeks. Patient discussed with Dr. [...] Blood Glucose Test 299 (mg/dL) Assessment/Plan: Acute [place] Ischemic CM EF 41% RCA stent Uncontrolled [...] - 04/30/2011 3:11 PM CST pt in woven label designer ET MACHINE OPERATOR Abbie Mukherjee RN - 04/29/2011 11:02 PM CST O: Belongings will be secure D: Pt verbalized he is concerned about his wallet being safe while he is inpatient. A: Pt placed wallet in valuables envelope and security took it to the vault. R: Pt verbalizes relief that valuables are safe. Will brass pickler upon discharge, pick-up slip placed inchart. Abbie Mukherjee RN 11:02 PM 04/29/2011 Jessenia Cowart - 04/29/2011 8:20 PM CST ADMIT O: Admitted patient via cart from [facility] to bed # 384/384 -01. D: Patient [...] are both issues. Favor bare metal stent. --[facility] Estevan Taylor MD - 04/30/2011 10:19 AM CST Consults signed by Estevan Taylor MD at 05/01/1135 Author: Estevan Taylor MD Service: (none) Author Type: Physician Filed: 05/01/1135 Note Time: 04/30/11 101 Status: Signed Desizing Machine Operator Head End: Estevan Taylor MD (Physician) NAME: SHARLENE KRISHNAMURTHY MR#: [id number] CSN: [id number] AUTHENTICATING CLINICIAN: Estevan Taylor MD CONFIRM #: [id number] LOC: 1 HOSPITAL CONSULTATION DATE OF CONSULTATION: [...] and on previously. He was hospitalized at [place] in November 2009 and at that point the CT angiogram showed non-flow- limiting disease in the right coronary, and he had a normal exercise nuclear scan. 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 He has been walking several [...] NEUROLOGIC: Cranial nerves normal. His electrocardiogram from [place] shows sinus rhythm, Q-waves in inferior leads, [...] would be favored. CC: ROLANDO LOPEZ, DO [address] [facility] [place] [address] [facility]:MEDQ C: CONFIRM #: [id number] ET MACHINE OPERATOR documented in this encounter OR Notes H&P - Geena Diaz MD - 04/29/2011 9:14 PM CST H&P signed by Geena Diaz MD at 04/29/112256 Author: Geena Diaz MD Service: (none) Author Type: Physician Filed: 04/29/112256 Note Time: 04/29/112113 Status: Signed Desizing Machine Operator Head End: Geena Diaz MD (Physician) NAME: SHARLENE KRISHNAMURTHY MR#: [id number] CSN: [id number] AUTHENTICATING CLINICIAN: Geena Diaz MD CONFIRM #: [id number] LOC: 1 HOSPITAL HISTORY AND PHYSICAL DATE [...] was started on heparin infusion at the [facility] and given metoprolol 12.5 mg orally. [facility] at [facility] was contacted and they recommended he be [...] 1000 mg XR product at bedtime. 8. Mora-3 fatty acid fish oil 2 grams daily. 9. Risperidone 4 mg daily. 10.Patient also running heparin infusion for anticoagulation on arrival. ADVERSE DRUG REACTIONS: Haldol, thiothixene, aripiprazole, trifluoperazine and ziprasidone. FAMILY HISTORY.: Dad had an [place] at age 35 and is currently doing well at age 69. SOCIAL HISTORY: Patient does not use alcohol. He smokes about three-quarters pack of cigarettes daily. He is , lives independently and he is currently unemployed as a retail warehouse supervisor. He would like to return to work. [...] complete physical exam is unremarkable. DATA: From [facility] today: Sodium 130 which is stable for this patient, with potassium 4, creatinine 0.71. From April 28, 2011: Hemoglobin 14 with white count 8000 and INR 1.0. [facility] labs from today: Platelets 209, INR 1.1, creatinine 0.8, PTT 30. Chest x-ray from [facility] reviewed by their Radiologist as showing [...] DISCUSSION: Patient's blood sugars were monitored at [facility]. PLAN: Patient is n.p.o. now in [...] in the a.m. SME:MEDQ C: CONFIRM #: [id number] ET MACHINE OPERATOR documented in this encounter Miscellaneous Notes Medication [...] Date:04/30/11, End Date:-, Frequency:- *No Administrations Recorded ET MACHINE OPERATOR documented in this encounter Plan of Treatment Not on filedocumented as of this encounter Procedures Procedure Name Priority Date/Time Associated Comments Diagnosis BEDSIDE GLUCOSE Routine 05/01/2011 8:05 Results f or this MONITOR POCT AM BASKET MACHINE OPERATOR procedure are i n the results section. PLATELETS Routine 05/01/2011 5:58 Results for this AM BASKET MACHINE OPERATOR procedure are i n the results section. TROPONIN I Specified Time 05/01/2011 4:49 Results fo r this AM BASKET MACHINE OPERATOR procedure are i n the results section. CK, TOTAL Specified Time 05/01/2011 4:49 Results fo r this AM BASKET MACHINE OPERATOR procedure are i n the results section. APTT (ACTIVATED Specified Time 05/01/2011 4:48 Results for this PARTIAL AM BASKET MACHINE OPERATOR procedure are i n THROMBOPLASTIN TIME the resu lts section. BEDSIDE GLUCOSE Routine 04/30/2011 9:33 Results f or this MONITOR POCT PM BASKET MACHINE OPERATOR procedure are i n the results section. LABS CARD PROF TROPI STAT 04/30/2011 7:53 Resu lts for this 6 HRS PM BASKET MACHINE OPERATOR procedure are i n the results section. CARD PROF TROPI 90 STAT 04/30/2011 5:30 Result s for this MIN PM BASKET MACHINE OPERATOR procedure are i n the results section. ECG 12 LEAD INPATIENT STAT 04/30/2011 5:07 Res ults for this PM BASKET MACHINE OPERATOR procedure are i n the results section. BEDSIDE GLUCOSE Routine 04/30/2011 4:35 Results f or this MONITOR POCT PM BASKET MACHINE OPERATOR procedure are i n the results section. GLUCOSE Routine 04/30/2011 1:50 Results for this PM BASKET MACHINE OPERATOR procedure are i n the results section. CARDIAC PROFILE Routine 04/30/2011 1:50 Results f or this PM BASKET MACHINE OPERATOR procedure are i n the results section. CREATININE / GFR Routine 04/30/2011 1:50 Results for this PM BASKET MACHINE OPERATOR procedure are i n the results section. COMPLETE BLOOD Routine 04/30/2011 1:50 Results fo r this COUNT-W/DIFF PM BASKET MACHINE OPERATOR procedure are i n the results section. DIFFERENTIAL Routine 04/30/2011 1:50 Results for this PM BASKET MACHINE OPERATOR procedure are i n the results section. ELECTROLYTE PANEL Routine 04/30/2011 1:50 Results for this PM BASKET MACHINE OPERATOR procedure are i n the results section. MAGNESIUM Routine 04/30/2011 1:50 Results for this PM BASKET MACHINE OPERATOR procedure are i n the results section. CK, TOTAL Routine 04/30/2011 1:50 Results for this PM BASKET MACHINE OPERATOR procedure are i n the results section. BUN Routine 04/30/2011 1:50 Results for this PM BASKET MACHINE OPERATOR procedure are i n the results section. INR/PROTIME Routine 04/30/2011 1:50 Results for this PM BASKET MACHINE OPERATOR procedure are i n the results section. CARDIAC CATH Routine 04/30/2011 1:06 Results for this PROCEDURE PM BASKET MACHINE OPERATOR procedure are i n the results section. BEDSIDE GLUCOSE Routine 04/30/2011 12:27 Results for this MONITOR POCT PM BASKET MACHINE OPERATOR procedure are i n the results section. APTT (ACTIVATED Specified Time 04/30/2011 10:52 Result s for this PARTIAL AM BASKET MACHINE OPERATOR procedure are i n THROMBOPLASTIN TIME the resu lts section. BEDSIDE GLUCOSE Routine 04/30/2011 8:49 Results f or this MONITOR POCT AM BASKET MACHINE OPERATOR procedure are i n the results section. APTT (ACTIVATED Specified Time 04/30/2011 3:29 Results for this PARTIAL AM BASKET MACHINE OPERATOR procedure are i n THROMBOPLASTIN TIME the resu lts section. SODIUM Specified Time 04/30/2011 3:29 Results fo r this AM BASKET MACHINE OPERATOR procedure are i n the results section. BEDSIDE GLUCOSE Routine 04/29/2011 9:22 Results f or this MONITOR POCT PM BASKET MACHINE OPERATOR procedure are i n the results section. APTT (ACTIVATED STAT 04/29/2011 8:14 Results f or this PARTIAL PM BASKET MACHINE OPERATOR procedure are i n THROMBOPLASTIN TIME the resu lts section. PLATELETS STAT 04/29/2011 8:14 Results for this PM BASKET MACHINE OPERATOR procedure are i n the results section. INR/PROTIME STAT 04/29/2011 8:14 Results for this PM BASKET MACHINE OPERATOR procedure are i n the results section. CREATININE / GFR STAT 04/29/2011 8:13 Results for this PM BASKET MACHINE OPERATOR procedure are i n the results section. MRSA CULTURE Routine 04/29/2011 8:05 Results for this PM BASKET MACHINE OPERATOR procedure are i n the results section. ECG 12 LEAD INPATIENT STAT 04/29/2011 7:58 Res ults for this PM BASKET MACHINE OPERATOR procedure are i n the results section. documented in this encounter Results BEDSIDE GLUCOSE MONITOR (05/01/2011 8:05 AM BASKET MACHINE OPERATOR) athologist Signature Bedside Blood 299 mg/dL HP CONVERSION Glucose Test Specimen Anatomical Collection Method Collection Time Receive d Time (Source) Location / / Volume Laterality 05/01/2011 8:05 AM 2 8:25 BASKET MACHINE OPERATOR AM BASKET MACHINE OPERATOR Tanesha Greene MD LAB_1 Performing Organization Address City/State/ZIP Code Phon e Number HP CONVERSION Platelets (05/01/2011 5:58 AM BASKET MACHINE OPERATOR) athologist Signature Platelet Count 171 140 - 450 HP CONVERSION k/cmm Specimen Anatomical Collection Method Collection Time Receive d Time (Source) Location / / Volume Laterality 05/01/2011 5:58 AM 2 6:00 BASKET MACHINE OPERATOR AM BASKET MACHINE OPERATOR Celso Cronin MD LAB_1 Performing Organization Address City/State/ZIP Code Phon e Number HP CONVERSION Troponin I (05/01/2011 4:49 AM BASKET MACHINE OPERATOR) athologist Signature TROPONIN I <0.10 0.00 - 0.30 HP CONVERSION ng/mL Specimen Anatomical Collection Method Collection Time Receive d Time (Source) Location / / Volume Laterality BLOOD: 05/01/2011 4:49 AM 2 4:51 BASKET MACHINE OPERATOR AM BASKET MACHINE OPERATOR Demario Mcintyre MD LAB_1 Performing Organization Address City/State/ZIP Code Phon e Number HP CONVERSION CK, Total (05/01/2011 4:49 AM BASKET MACHINE OPERATOR) athologist Signature Creatine Kinase 63 0 - 225 HP CONVERSION U/L Specimen Anatomical Collection Method Collection Time Receive d Time (Source) Location / / Volume Laterality BLOOD: 05/01/2011 4:49 AM 2 4:51 BASKET MACHINE OPERATOR AM BASKET MACHINE OPERATOR Demario Mcintyre MD LAB_1 Performing Organization Address City/State/ZIP Code Phon e Number HP CONVERSION APTT (Activated Partial Thromboplastin Time) (05/01/2011 4:48 AM BASKET MACHINE OPERATOR) [facility] Method Time Signature Partial 27.3 25.0 - HP CONVERSION Thromboplastin Time 38.0 sec Specimen Anatomical Collection Method Collection Time Receive d Time (Source) Location / / Volume Laterality 05/01/2011 4:48 AM 2 4:51 BASKET MACHINE OPERATOR AM BASKET MACHINE OPERATOR Geena Diaz MD LAB_1 Performing Organization Address City/[facility]/ZIP Code Phon e Number HP CONVERSION BEDSIDE GLUCOSE MONITOR (04/30/2011 9:33 PM BASKET MACHINE OPERATOR) athologist Signature Bedside Blood 353 mg/dL HP CONVERSION Glucose Test Specimen Anatomical Collection Method Collection Time Receive d Time (Source) Location / / Volume Laterality 04/30/2011 9:33 PM 2 9:40 BASKET MACHINE OPERATOR PM BASKET MACHINE OPERATOR Celso Cronin MD LAB_1 Performing Organization Address City/[facility]/ZIP Code Phon e Number HP CONVERSION LABS CARD PROF TROPI 6 HRS (04/30/2011 7:53 PM BASKET MACHINE OPERATOR) athologist Signature Tropi At 6 Hrs <0.10 0.00 - HP CONVERSION 0.30 ng/mL Specimen Anatomical Collection Method Collection Time Receive d Time (Source) Location / / Volume Laterality 04/30/2011 7:53 PM 2 8:02 BASKET MACHINE OPERATOR PM BASKET MACHINE OPERATOR Narrative HP CONVERSION - 04/30/2011 8:33 PM BASKET MACHINE OPERATOR .Critical _TROPI_ result of _0.48_calle d to and read back by_HANNAH FROM CAT.LAB_, 04/30/2011,16:25, by [email or web address] called to and read back by hyader ??rn 3e, 04/30/2011,14:55, by MONICA Celso Cronin MD LAB_1 Performing Organization Address City/[facility]/ZIP Code Phon e Number HP CONVERSION CARD PROF TROPI 90 MIN (04/30/2011 5:30 PM BASKET MACHINE OPERATOR) athologist Signature Tropi at 90 Min <0.10 0.00 - HP CONVERSION 0.30 ng/mL Specimen Anatomical Collection Method Collection Time Receive d Time (Source) Location / / Volume Laterality 04/30/2011 5:30 PM 2 5:34 BASKET MACHINE OPERATOR PM BASKET MACHINE OPERATOR Narrative HP CONVERSION - 04/30/2011 6:05 PM BASKET MACHINE OPERATOR .Critical _TROPI_ result of _0.48_calle d to and read back by_ERIC FROM CAT.LAB_, 04/30/2011,16:25, by [email or web address] called to and read back by hayder ??rn 3e, 04/30/2011,14:55, by MONICA Celso Cronin MD LAB_1 Performing Organization Address City/[facility]/ZIP Code Phon e Number HP CONVERSION ECG 12 Lead Inpatient (04/30/2011 5:07 PM BASKET MACHINE OPERATOR) P athologist Signature Ventricular Rate 76 BPM MUSE GHP Atrial Rate 76 BPM MUSE GHP P-R Interval 140 ms MUSE GHP QRS Duration 98 ms MUSE GHP QT 402 ms MUSE GHP QTc 452 ms MUSE GHP P [place] 35 degrees MUSE GHP R [place] 32 degrees MUSE GHP T [place] -28 degrees MUSE GHP Specimen (Source) Anatomical Collection Method Collection Time Re ceived Time Location / / Volume Laterality 04/30/2011 5:07 PM BASKET MACHINE OPERATOR Narrative MUSE GHP - 07/31/2019 4:22 PM [...] MD PN ECG ORDERABLES Performing Organization Address [facility] Phon e Number MUSE GHP [address] [place] [address] BEDSIDE GLUCOSE MONITOR (04/30/2011 4:35 PM BASKET MACHINE OPERATOR) athologist Signature Bedside Blood 149 mg/dL HP CONVERSION Glucose Test Specimen Anatomical Collection Method Collection Time Receive d Time (Source) Location / / Volume Laterality 04/30/2011 4:35 PM 2 4:45 BASKET MACHINE OPERATOR PM BASKET MACHINE OPERATOR Celso Cronin MD LAB_1 Performing Organization Address City/[facility] Phon e Number HP CONVERSION INR/Protime (04/30/2011 1:50 PM BASKET MACHINE OPERATOR) P athologist Signature Prothrombin Time 13.5 12.6 [...] valves in the aortic position , acute [place], valvular heart disease and atrial fibril lation. Mechanical prosthetic valves, (high risk ). ? INR 2.5-3.5 Prevention of recurrent myocardial infar ct. These recommended ranges serve as guidel mike. Adjustment outside these ranges may be c linically indicated. Specimen Anatomical Collection Method Collection Time Receive d Time (Source) Location / / Volume Laterality 04/30/2011 1:50 PM 2 1:59 BASKET MACHINE OPERATOR PM BASKET MACHINE OPERATOR Celso Cronin MD LAB_1 Performing Organization Address City/[facility] Phon e Number HP CONVERSION (ABNORMAL) Differential (04/30/2011 1:50 PM BASKET MACHINE OPERATOR) Component Value Ref Test Analysis Performed At [...] Volume Laterality 04/30/2011 1:50 PM 2 1:59 BASKET MACHINE OPERATOR PM BASKET MACHINE OPERATOR Celso Cronin MD LAB_1 Performing Organization Address [facility] Phon e Number HP CONVERSION (ABNORMAL) CARDIAC PROFILE (04/30/2011 1:50 PM BASKET MACHINE OPERATOR) [facility] Method Time Signature Tropi Baseline 0.48 (CH) 0.00 - HP CONVERSION 0.30 ng/mL Specimen Anatomical Collection Method Collection Time Receive d Time (Source) Location / / Volume Laterality 04/30/2011 1:50 PM 2 1:59 BASKET MACHINE OPERATOR PM BASKET MACHINE OPERATOR Narrative HP CONVERSION - 04/30/2011 4:09 PM BASKET MACHINE OPERATOR .Critical _TROPI_ result of _0.48_calle d to and read back by_ERIC FROM CAT.LAB_, 04/30/2011,16:25, by [email or web address] called to and read back by hayder ??rn 3e, 04/30/2011,14:55, by MONICA Celso Cronin MD LAB_1 Performing Organization Address City/[facility]/ZIP Code Phon e Number HP CONVERSION (ABNORMAL) Hemogram/Plts/Diff (04/30/2011 1:50 PM BASKET MACHINE OPERATOR) [facility] Method Time Signature White Blood Cell [...] Volume Laterality 04/30/2011 1:50 PM 2 1:59 BASKET MACHINE OPERATOR PM BASKET MACHINE OPERATOR Narrative HP CONVERSION - 04/30/2011 2:40 PM BASKET MACHINE OPERATOR .plt 51 called to and read back by hayder ??rn 3e, 04/30/2011,14:55, by STEDA Celso Cronin MD LAB_1 Performing Organization Address [facility] Phon e Number HP CONVERSION Electrolyte Panel (04/30/2011 1:50 PM BASKET MACHINE OPERATOR) athologist Signature Sodium 141 137 - 147 HP CONVERSION mEq/L Potassium 3.6 3.5 - 5.2 HP CONVERSION mEq/L Chloride 108 98 - 110 HP CONVERSION mEq/L Bicarbonate 26 23 - 33 HP CONVERSION mmol/L Specimen Anatomical Collection Method Collection Time Receive d Time (Source) Location / / Volume Laterality 04/30/2011 1:50 PM 2 1:59 BASKET MACHINE OPERATOR PM BASKET MACHINE OPERATOR Celso Cronin MD LAB_1 Performing Organization Address City/State/ZIP Code Phon e Number HP CONVERSION Magnesium (04/30/2011 1:50 PM BASKET MACHINE OPERATOR) athologist Signature Magnesium 2.2 1.5 - 2.4 HP CONVERSION mg/dL Specimen Anatomical Collection Method Collection Time Receive d Time (Source) Location / / Volume Laterality 04/30/2011 1:50 PM 2 1:59 BASKET MACHINE OPERATOR PM BASKET MACHINE OPERATOR Celso Cronin MD LAB_1 Performing Organization Address City/[facility]/ZIP Code Phon e Number HP CONVERSION (ABNORMAL) GLUCOSE (04/30/2011 1:50 PM BASKET MACHINE OPERATOR) athologist Signature Lab Glucose 211 (H) 60 - 100 HP CONVERSION mg/dL Specimen Anatomical Collection Method Collection Time Receive d Time (Source) Location / / Volume Laterality 04/30/2011 1:50 PM 2 1:59 BASKET MACHINE OPERATOR PM BASKET MACHINE OPERATOR Celso Cronin MD LAB_1 Performing Organization Address City/[facility] Code Phon e Number HP CONVERSION Creatinine / GFR (04/30/2011 1:50 PM BASKET MACHINE OPERATOR) athologist Signature Creatinine 0.8 0.4 - [...] Volume Laterality 04/30/2011 1:50 PM 2 1:59 BASKET MACHINE OPERATOR PM BASKET MACHINE OPERATOR Celso Cronin MD LAB_1 Performing Organization Address [facility] Phon e Number HP CONVERSION CK, Total (04/30/2011 1:50 PM BASKET MACHINE OPERATOR) P athologist Signature Creatine Kinase 108 0 - 225 HP CONVERSION U/L Specimen Anatomical Collection Method Collection Time Receive d Time (Source) Location / / Volume Laterality 04/30/2011 1:50 PM 2 1:59 BASKET MACHINE OPERATOR PM BASKET MACHINE OPERATOR Celso Cronin MD LAB_1 Performing Organization Address [facility] Code Phon e Number HP CONVERSION BUN (04/30/2011 1:50 PM BASKET MACHINE OPERATOR) P athologist Signature Blood Urea 17 5 - 26 HP CONVERSION Nitrogen mg/dL Specimen Anatomical Collection Method Collection Time Receive d Time (Source) Location / / Volume Laterality 04/30/2011 1:50 PM 2 1:59 BASKET MACHINE OPERATOR PM BASKET MACHINE OPERATOR Celso Cronin MD LAB_1 Performing Organization Address [facility] Phon e Number HP CONVERSION Cardiac Cath Procedure (04/30/2011 1:06 PM BASKET MACHINE OPERATOR) Specimen (Source) Anatomical Collection Method Collection Time Re ceived Time Location / / Volume Laterality 04/30/2011 1:06 PM BASKET MACHINE OPERATOR Narrative PN CENTRICITY - 04/30/2011 1:06 PM BASKET MACHINE OPERATOR SHARLENE KRISHNAMURTHY ?? [id number] Cardiac Catheterization : 1970 Age: 41 years Gender: Male Study date: 04/30/2011 Test time: 15:27 - 15:59 Fluoro time: 6.6 min PPH Staff: ??Antoinette Olivera RN Diagnostic Dry Plasterer Helper: ??DEMARIO MCINTYRE MD [place] Member: ??Brandon Ta Scrub: ??Katie Holder Monitor: ??Zoie Kumar RCVT X-ray Tech: ??Daniela Robles RT Ordering Physician: ??Franck TAYLOR [place] Member: ??Harmony Newton RNcommunity engagement leaderAnesthesiologist/Physician: ??FLORENCE MCINTYRE MD Referring Physician 1: ??ROLANDO [...] obtained. The patient was brought to the woven label designer and placed on the table. The planned [...] lesion. Vessel setup was performed. A JR4 appMobiin g catheter was used to intubate the vessel. Balloon angioplasty was performed, using a 2.5 x 15 NC Quantum Boles balloon, with 2 inflations and a maximum [...] 17:21:22 PPH Staff: Antoinette Olivera RN Diagnostic Dry Plasterer Helper: DEMARIO MCINTYRE [place] Member: rBandon Ta Scrub: Katie Holder Monitor: Zoie KumarVT X-ray Tech: Daniela Robles Ordering Physician: Franck TAYLOR MD [place] [employer] Member: Harmony Newton RNcommunity engagement leaderAnesthesiologist/Physician: MARGO MCINTYRE MD Referring Physician 1: ROLANDO [...] PN CARDIAC CATH ORDERABLES Performing Organization Address [facility] Phon e Number PN CENTRICITY BEDSIDE GLUCOSE MONITOR (04/30/2011 12:27 PM BASKET MACHINE OPERATOR) athologist Signature Bedside Blood 242 mg/dL HP CONVERSION Glucose Test Specimen Anatomical Collection Method Collection Time Receive d Time (Source) Location / / Volume Laterality 04/30/2011 12:27 04/30/2011 PM BASKET MACHINE OPERATOR 12:45 PM BASKET MACHINE OPERATOR Celso Cronin MD LAB_1 Performing Organization Address [facility] Phon e Number HP CONVERSION APTT (Activated Partial Thromboplastin Time) (04/30/2011 10:52 AM BASKET MACHINE OPERATOR) [facility] Method Time Signature Partial 36.3 25.0 - HP CONVERSION Thromboplastin Time 38.0 sec Specimen Anatomical Collection Method Collection Time Receive d Time (Source) Location / / Volume Laterality 04/30/2011 10:52 04/30/2011 AM BASKET MACHINE OPERATOR 11:07 AM BASKET MACHINE OPERATOR Geena Diaz MD LAB_1 Performing Organization Address [facility] Phon e Number HP CONVERSION BEDSIDE GLUCOSE MONITOR (04/30/2011 8:49 AM BASKET MACHINE OPERATOR) athologist Signature Bedside Blood 274 mg/dL HP CONVERSION Glucose Test Specimen Anatomical Collection Method Collection Time Receive d Time (Source) Location / / Volume Laterality 04/30/2011 8:49 AM 2 9:01 BASKET MACHINE OPERATOR AM BASKET MACHINE OPERATOR Celso Cronin MD LAB_1 Performing Organization Address [facility] Phon e Number HP CONVERSION (ABNORMAL) Sodium (04/30/2011 3:29 AM BASKET MACHINE OPERATOR) athologist Signature Sodium 133 (L) 137 - 147 HP CONVERSION mEq/L Specimen Anatomical Collection Method Collection Time Receive d Time (Source) Location / / Volume Laterality 04/30/2011 3:29 AM 2 3:41 BASKET MACHINE OPERATOR AM BASKET MACHINE OPERATOR Geena Diaz MD LAB_1 Performing Organization Address [facility] Phon e Number HP CONVERSION APTT (Activated Partial Thromboplastin Time) (04/30/2011 3:29 AM BASKET MACHINE OPERATOR) Patholo gist Method Time Signature Partial 32.8 25.0 - HP CONVERSION Thromboplastin Time 38.0 sec Specimen Anatomical Collection Method Collection Time Receive d Time (Source) Location / / Volume Laterality 04/30/2011 3:29 AM 2 3:41 BASKET MACHINE OPERATOR AM BASKET MACHINE OPERATOR Geena Diaz MD LAB_1 Performing Organization Address [facility] Phon e Number HP CONVERSION BEDSIDE GLUCOSE MONITOR (04/29/2011 9:22 PM BASKET MACHINE OPERATOR) P athologist Signature Bedside Blood 294 mg/dL HP CONVERSION Glucose Test Specimen Anatomical Collection Method Collection Time Receive d Time (Source) Location / / Volume Laterality 04/29/2011 9:22 PM 2 9:00 BASKET MACHINE OPERATOR AM BASKET MACHINE OPERATOR Celso Cronin MD LAB_1 Performing Organization Address [facility] Phon e Number HP CONVERSION INR/Protime (04/29/2011 8:14 PM BASKET MACHINE OPERATOR) P athologist Signature Prothrombin Time 13.8 12.6 [...] valves in the aortic position , acute [place], valvular heart disease and atrial fibril lation. Mechanical prosthetic valves, (high risk ). ? INR 2.5-3.5 Prevention of recurrent myocardial infar ct. These recommended ranges serve as guidel mike. Adjustment outside these ranges may be c linically indicated. Specimen Anatomical Collection Method Collection Time Receive d Time (Source) Location / / Volume Laterality 04/29/2011 8:14 PM 2 8:17 BASKET MACHINE OPERATOR PM BASKET MACHINE OPERATOR Fan Curry DO LAB_1 Performing Organization Address [facility] Phon e Number HP CONVERSION APTT (Activated Partial Thromboplastin Time) (04/29/2011 8:14 PM BASKET MACHINE OPERATOR) [facility] gist Method Time Signature Partial 33.7 25.0 - HP CONVERSION Thromboplastin Time 38.0 sec Specimen Anatomical Collection Method Collection Time Receive d Time (Source) Location / / Volume Laterality 04/29/2011 8:14 PM 2 8:17 BASKET MACHINE OPERATOR PM BASKET MACHINE OPERATOR Fan Curry DO LAB_1 Performing Organization Address [facility] Phon e Number HP CONVERSION Platelets (04/29/2011 8:14 PM BASKET MACHINE OPERATOR) athologist Signature Platelet Count 209 140 - 450 HP CONVERSION k/cmm Specimen Anatomical Collection Method Collection Time Receive d Time (Source) Location / / Volume Laterality 04/29/2011 8:14 PM 2 8:17 BASKET MACHINE OPERATOR PM BASKET MACHINE OPERATOR Fan Curry DO LAB_1 Performing Organization Address [facility] Phon e Number HP CONVERSION Creatinine / GFR (04/29/2011 8:13 PM BASKET MACHINE OPERATOR) athologist Signature Creatinine 0.8 0.4 - [...] Volume Laterality 04/29/2011 8:13 PM 2 8:17 BASKET MACHINE OPERATOR PM BASKET MACHINE OPERATOR Fan Curry DO LAB_1 Performing Organization Address [facility] Phon e Number HP CONVERSION MRSA Culture (04/29/2011 8:05 PM BASKET MACHINE OPERATOR) Component Value Ref Test Analysis Performed At [...] / Volume Laterality Nares: 04/29/2011 8:05 PM BASKET MACHINE OPERATOR Julia Covarrubias MD LAB_1 Performing Organization Address City/State/ZIP Code Phon e Number HP CONVERSION ECG 12 Lead Inpatient (04/29/2011 7:58 PM BASKET MACHINE OPERATOR) P athologist Signature Ventricular Rate 84 BPM [facility] Atrial Rate 84 BPM [facility] P-R Interval 144 ms [facility] QRS Duration 96 ms [facility] QT 366 ms [facility] QTc 432 ms [facility] P [place] 44 degrees [facility] R [place] 41 degrees [facility] T [place] -33 degrees [facility] Specimen (Source) Anatomical Collection Method Collection Time Re ceived Time Location / / Volume Laterality 04/29/2011 7:58 PM BASKET MACHINE OPERATOR Narrative [facility] - 07/31/2019 4:26 PM CDT Sinus rhythm Small inferior Q's Borderline ECG ?? No previous ECGs available Procedure Note Epic, Internal Processing - 08/05/2019Fo rmatting of this note might be different from the original. Sinus rhythm Small inferior Q's Borderline ECG No previous ECGs available Brisa Negrete MD PN ECG ORDERABLES Performing Organization Address City/State/ZIP Code Phon e Number MUSE [facility] [address] [place] [address] documented in this encounter Visit Diagnoses Diagnosis [...] Coronary atherosclerosis of unspecified type of vessel, quinault or graft (HRC) Coronary atherosclerosis of unspecified type of vessel, quinault or graft Laboratory examination, unspecified Acute myocardial [...] feet. documented in this encounter Care Teams Community Outreach Director Relationship Specialty Start Date End Date Rolando Lopez DO PCP - General 12/23/10 05/16/12 [address] [place] [address] documented as of this encounter
--- OUTSIDE RECORDS SUMMARY | 2022-02-14 10:51 | XMS_ITS | Encounter Summary ---
:1970 Author [facility] Address [address] [place] [address] Care Team Providers Name Role Phone Lilian Persaud DO Primary Care Provider Reason for Visit Reason Comments Prior Authorization Request Encounter Details Date Type Department Care Team Description 02/02/2011 Notes/Orders [facility] Lilian Persaud DO [address] [facility] . [address] [place] [address] [place] [address] [phone] (Wo rk) Social History Tobacco Use Types Packs/Day Years Used Date Smoking Tobacco: Never Assessed Sex Assigned at Date Recorded Not on file documented as of this encounter Progress Notes Herlinda Lucio [facility] - 02/02/2011 4:38 PM CDT See message from 01/26. FERNANDO for Tyrone arreola. Approval faxed to pharmacy and sent to [facility]. documented in this encounter Plan of Treatment Not on filedocumented as of this encounter Visit Diagnoses Not on filedocumented in this encounter Care Teams Cafe Cook Relationship Specialty Start Date End Date Lilian Persaud DO PCP - General 12/23/10 05/16/12 1415 [place] [address] documented as of this encounter
--- OUTSIDE RECORDS SUMMARY | 2022-02-14 10:51 | XMS_ITS | Encounter Summary ---
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 Vomiting alone; [place] [address] [place], [place] Plantar wart [phone] Social History Tobacco Use Types Packs/Day Years Used Date Smoking Tobacco: Never Assessed Sex Assigned at Date Recorded Not on file documented as of this encounter Last Filed Vital Signs Vital Sign Reading Time Taken Comments Blood Pressure 112/64 03/17/2011 1:54 PM COLLETER Pulse 70 03/17/2011 1:54 PM COLLETER Temperature - - Respiratory Rate - - Oxygen Saturation - - Inhaled Oxygen Concentration - - Weight 101.6 kg (224 lb) 03/17/2011 1:54 PM COLLETER Height - - Body Mass Index 32.6 01/22/2011 11:08 AM CDT documented in this encounter Patient Instructions Patient InstructionsLilian Persaud DO - 03/17/2011 3:08 PM CST Come in fasting for cholesterol and other blood work in the next 1-2 weeks. Follow up 2 weeks for plantar wart treatment Follow up 1 month for diabetes check ETER documented in this encounter Progress Notes Lilian [...] DESTRUCT BENIGN SKIN LESIONS UP TO 14 [id number] 1. Vomiting may be a side effect [...] alternatives discussed for plantar wart treatment, including lvka-xiu-hqxaknf therapies, cantharidin, injections, cryotherapy and salicylic acid. [...] wart documented in this encounter Care Teams Bark Peeler Relationship Specialty Start Date End Date Lilian Persaud DO PCP - General 12/23/10 05/16/12 [address] [place], [place] [address] documented as of this encounter
--- OUTSIDE RECORDS SUMMARY | 2022-02-14 10:51 | XMS_ITS | Encounter Summary ---
:1970 Author [facility] Address [address] [place] [address] Care Team Providers Name Role Phone Rolando Lopez DO Primary Care Provider Reason for Visit Reason Comments Refill Encounter Details Date Type Department Care Team Description 03/11/2011 Refill [facility] Rolando Lopez DO Refill [address] [address] [place] [address] [place] [address] [phone] (Wo rk) Social History Tobacco Use Types [...] on filedocumented in this encounter Care Teams Beer Runner Relationship Specialty Start Date End Date Rolando Lopez DO PCP - General 12/23/10 05/16/12 [address]15 [place] [address] documented as of this encounter
--- OUTSIDE RECORDS SUMMARY | 2022-02-14 10:51 | XMS_ITS | Encounter Summary ---
:1970 Author Organization [employer] Address [address] [place] [address] Care Team Providers Name Role Phone Lilian Persaud DO Primary Care Provider Encounter Details Date Type Department Care Team Description 01/22/2011 Lab Visit [facility] Pure hyperglyceridemia; [address] DM w/o complication type II, uncontrolled [place] [address] Social History Tobacco Use Types Packs/Day Years [...] Direct LDL(If Needed) (01/22/2011 11:58 AM CDT) [employer] gist Method Time Signature Cholesterol 276 (H) [...] - 01/22/2011 3:11 PM CDT Performed at [facility], [address] [place] [address] Lilian Persaud DO LAB_1 Performing Organization Address City/State/[facility] Code Phon e Number HP CONVERSION [...] - 01/22/2011 3:11 PM CDT Performed at [facility], [address] [place] [address] Lilian Persaud DO LAB_1 Performing Organization Address City/[facility] Phon e Number HP CONVERSION (ABNORMAL) GLUCOSE (01/22/2011 11:58 AM CDT) athologist Signature Lab Glucose 249 (H) 60 - 100 HP CONVERSION mg/dL Specimen Anatomical Collection Method Collection Time Receive d Time (Source) Location / / Volume Laterality 01/22/2011 11:58 01/22/2011 2:46 AM CDT PM CDT Narrative HP CONVERSION - 01/22/2011 3:11 PM CDT Performed at [facility], [address] [place] [address] Lilian Persaud DO LAB_1 Performing Organization Address City/[facility] Code Phon e Number HP CONVERSION Creatinine [...] - 01/22/2011 3:11 PM CDT Performed at [facility], [address] [place] [address] Lilian Luther Cori SAL LAB_1 Performing Organization Address [facility] Phon e Number HP CONVERSION AST (01/22/2011 11:58 AM CDT) [employer] gist Method Time Signature Aspartate 27 0 - 45 HP CONVERSION Aminotransferase U/L Specimen Anatomical Collection Method Collection Time Receive d Time (Source) Location / / Volume Laterality 01/22/2011 11:58 01/22/2011 2:46 AM CDT PM CDT Narrative HP CONVERSION - 01/22/2011 3:11 PM CDT Performed at [facility], [address] [place], [place] [id number] Lilian Luther Cori SAL LAB_1 Performing Organization Address [facility] Phon e Number HP CONVERSION ALT (SGPT) (01/22/2011 11:58 AM CDT) [facility] Method Time Signature Alanine 41 4 - 55 HP CONVERSION Aminotransferase U/L Specimen Anatomical Collection Method Collection Time Receive d Time (Source) Location / / Volume Laterality 01/22/2011 11:58 01/22/2011 2:46 AM CDT PM CDT Narrative HP CONVERSION - 01/22/2011 3:11 PM CDT Performed at [facility], [address] [place], [place] [address] Lilian Luther Cori SAL LAB_1 Performing Organization Address [facility] Phon e Number HP CONVERSION VENIPUNCTURE (SOBEIDA) (01/22/2011 11:52 AM CDT) athologist Signature Venipuncture Done HP CONVERSION Specimen (Source) Anatomical Collection Method Collection Time Re ceived Time Location / / Volume Laterality 01/22/2011 11:52 AM CDT Narrative HP CONVERSION - 01/22/2011 11:52 AM CDT Performed at [facility], [address] [place] [address] Lilian Luther Cori SAL LAB_1 Performing Organization Address [facility] Phon e Number HP CONVERSION documented in this encounter Visit Diagnoses Diagnosis Pure hyperglyceridemia (HRC) Pure hyperglyceridemia Type II or unspecified type diabetes jasen litus without mention of complication, uncontrolled documented in this encounter Care Teams Binder Cutter Hand Relationship Specialty Start Date End Date Lilian Persaud DO PCP - General 12/23/10 05/16/12 [address] [place] [address] documented as of this encounter
--- OUTSIDE RECORDS SUMMARY | 2022-02-14 10:51 | XMS_ITS | Encounter Summary ---
:1970 Author Organization [employer] Address [address] [place] [address] Care Team Providers Name Role Phone Lilian Persaud DO Primary Care Provider Reason for Visit Reason Comments Diabetic Concern Encounter Details Date Type Department Care Team Description 01/29/2011 Telephone [facility] Lilian Persaud DO Diabetic Concern [address] [facility] [address] [address] [facility] [place] [place] [address] [place] [address] [phone] (Wo rk) Social History Tobacco Use Types Packs/Day Years Used Date Smoking Tobacco: Never Assessed Sex Assigned at Date Recorded Not on file documented as of this encounter Nursing Notes Wendy Marx - 01/29/2011 4:13 PM CDT Pt is calling per Dr. Persaud's instructions, regarding his blood sugar level. He states he just beganthe new medication, Januvia, on 01-27-11 and the blood sugar levels are the same as before. documented in this encounter Plan of Treatment Not on filedocumented as of this encounter Visit Diagnoses Not on filedocumented in this encounter Care Teams Security Agent Relationship Specialty Start Date End Date Lilian Persaud DO PCP - General 12/23/10 05/16/12 1415 [place], [place] [address] documented as of this encounter
--- OUTSIDE RECORDS SUMMARY | 2022-02-14 10:51 | XMS_ITS | Encounter Summary ---
:1970 Author Organization [employer] Address [address] [address] Care Team Providers Name Role Phone Cori Lilian Luther DO Primary Care Provider Encounter Details Date Type Department Care Team Description 04/29/2011 Hospital Encounter Heart & [facility] MD Simi Echocardiogram [address] [facility] [address] [place] [address] [phone] Social History Tobacco Use Types Packs/Day Years [...] respiration Re sults for this ECHOCARDIOGRAM PM SALES REPRESENTATIVE PRINTING procedure are in the results section. documented in this encounter Results Outreach Stress Echocardioram (04/29/2011 4:28 PM SALES REPRESENTATIVE PRINTING) Specimen (Source) Anatomical Location Collection Method / Collectio n Time Received Time / Laterality Volume Narrative HP CONVERSION - 04/29/2011 4:28 PM SALES REPRESENTATIVE PRINTING See results in APPS: [employer] Brisa Negrete MD PN ECHO ORDERABLES Performing Organization Address City/State/ZIP Code Phon e Number HP CONVERSION documented in this encounter Visit Diagnoses Diagnosis Painful respiration documented in this encounter Care Teams Order Dispatcher Relationship Specialty Start Date End Date Lilian Persaud DO PCP - General 12/23/10 05/16/12 [address] [place] [address] documented as of this encounter
--- OUTSIDE RECORDS SUMMARY | 2022-02-14 10:51 | XMS_ITS | Encounter Summary ---
:1970 Author Organization [employer] Address [address] [place] [address] Care Team Providers Name Role Phone Lilian Persaud DO Primary Care Provider Reason for Visit Reason Comments Prior Authorization Request Encounter Details Date Type Department Care Team Description 01/26/2011 Telephone [facility] Lilian Persaud, A uthorization Medicine DO Request [address] [address] [place] [address] [place], [place] [phone] [address] Social History Tobacco Use Types Packs/Day Years [...] change meds [facility] phone [phone] Pharmacy Fax# or Address: fax [phone] Clinician Name: Cori Drug Name/Strength: Januvia 25mg tablets #30 Sig: take 1-2 tablets po daily Formulary Alternative: none given Insurance Carrier: *ECODE documented in this encounter Plan of Treatment Not on filedocumented as of this encounter Visit Diagnoses Not on filedocumented in this encounter Care Teams Care Professionals Relationship Specialty Start Date End Date Lilian Persaud DO PCP - General 12/23/10 05/16/12 [address] [place] [address] documented as of this encounter
--- OUTSIDE RECORDS SUMMARY | 2022-02-14 10:51 | XMS_ITS | Encounter Summary ---
:1970 Author Organization [employer] Address [address] [place] [address] Care Team Providers Name Role Phone Lilian Persaud DO Primary Care Provider Encounter Details Date Type Department Care Team Description 04/06/2011 Lab Visit [facility] Other disorders of lipoid me tabolism; [address] DM w/o complication type II, uncontrolled [place] [address] Social History Tobacco Use Types Packs/Day Years Used Date Smoking Tobacco: Never Assessed Sex Assigned at Date Recorded Not on file documented as of this encounter Plan of Treatment Not on filedocumented as of this encounter Procedures Procedure Name Priority Date/Time Associated Diagnosis Comme nts GLUCOSE Routine 04/06/2011 1:53 PM Type II or Results f or this SEPTIC TANK SETTER unspecified type procedure a re in diabetes mellitus the result s without mention of section. complication, uncontrolled (HRC) LIPID PANEL AND Routine 04/06/2011 1:53 PM Other disorders of Results for this DIRECT LDL(IF NEEDED) SEPTIC TANK SETTER lipoid metabolism p rocedure are in (HRC) the results section. ELECTROLYTE PANEL Routine 04/06/2011 1:53 PM Type II or Resu lts for this SEPTIC TANK SETTER unspecified type procedure a re in diabetes mellitus the result s without mention of section. complication, uncontrolled (HRC) HGB A1C Routine 04/06/2011 1:53 PM Type II or Results f or this SEPTIC TANK SETTER unspecified type procedure a re in diabetes mellitus the result s without mention of section. complication, uncontrolled (HRC) ALT (SGPT) Routine 04/06/2011 1:53 PM Other disorders of Res ults for this SEPTIC TANK SETTER lipoid metabolism procedure are in (HRC) the results section. AST Routine 04/06/2011 1:53 PM Other disorders of Res ults for this SEPTIC TANK SETTER lipoid metabolism procedure are in (HRC) the results section. VENIPUNCTURE ([place]) Routine 04/06/2011 Results for this procedure are i n the results section. documented in this encounter Results (ABNORMAL) Hgb A1c (04/06/2011 1:53 PM SEPTIC TANK SETTER) athologist [facility] HGB A1C 9.9 (H) 0.0 - 6.0 % HP CONVERSION Specimen Anatomical Collection Method Collection Time Receive d Time (Source) Location / / Volume Laterality 04/06/2011 1:53 PM 1 8:50 SEPTIC TANK SETTER PM SEPTIC TANK SETTER Lilian Persaud DO LAB_1 Performing Organization Address [facility] Phon e Number HP CONVERSION (ABNORMAL) GLUCOSE (04/06/2011 1:53 PM SEPTIC TANK SETTER) athologist [facility] Lab Glucose 236 (H) 60 - 100 HP CONVERSION mg/dL Specimen Anatomical Collection Method Collection Time Receive d Time (Source) Location / / Volume Laterality 04/06/2011 1:53 PM 1 8:03 SEPTIC TANK SETTER PM SEPTIC TANK SETTER Narrative HP CONVERSION - 04/06/2011 8:23 PM SEPTIC TANK [place] [address] Lilian Persaud DO LAB_1 Performing Organization Address [facility] Phon e Number HP CONVERSION (ABNORMAL) Electrolyte Panel (04/06/2011 1:53 PM SEPTIC TANK SETTER) athologist [facility] Sodium 132 (L) 137 - 147 HP CONVERSION mEq/L Potassium 4.5 3.5 - 5.2 HP CONVERSION mEq/L Chloride 99 98 - 110 HP CONVERSION mEq/L Bicarbonate 25 23 - 33 HP CONVERSION mmol/L Specimen Anatomical Collection Method Collection Time Receive d Time (Source) Location / / Volume Laterality 04/06/2011 1:53 PM 1 8:03 SEPTIC TANK SETTER PM SEPTIC TANK SETTER Narrative HP CONVERSION - 04/06/2011 8:23 PM SEPTIC TANK SETTER Performed at [facility], [address] [place] [address] Lilian Persaud DO LAB_1 Performing Organization Address [facility] Phon e Number HP CONVERSION (ABNORMAL) Lipid Panel and Direct LDL(If Needed) (04/06/2011 1:53 PM SEPTIC TANK SETTER) [facility] Method Time Signature Cholesterol 280 (H) 0 [...] Volume Laterality 04/06/2011 1:53 PM 1 8:03 SEPTIC TANK SETTER PM SEPTIC TANK SETTER Narrative HP CONVERSION - 04/06/2011 8:23 PM SEPTIC TANK SETTER Performed at [facility], [address] [place] [address] Lilian Persaud DO LAB_1 Performing Organization Address [facility] Phon e Number HP CONVERSION AST (04/06/2011 1:53 PM SEPTIC TANK SETTER) [facility] Time Signature Aspartate 34 0 - 45 HP CONVERSION Aminotransferase U/L Specimen Anatomical Collection Method Collection Time Receive d Time (Source) Location / / Volume Laterality 04/06/2011 1:53 PM 1 8:03 SEPTIC TANK SETTER PM SEPTIC TANK SETTER Narrative HP CONVERSION - 04/06/2011 8:23 PM SEPTIC TANK SETTER Performed at [facility], [address] [place] [address] Lilian Persaud DO LAB_1 Performing Organization Address [facility] Phon e Number HP CONVERSION ALT (SGPT) (04/06/2011 1:53 PM SEPTIC TANK SETTER) [facility] Method Time Signature Alanine 45 4 - 55 HP CONVERSION Aminotransferase U/L Specimen Anatomical Collection Method Collection Time Receive d Time (Source) Location / / Volume Laterality 04/06/2011 1:53 PM 1 8:03 SEPTIC TANK SETTER PM SEPTIC TANK SETTER Narrative HP CONVERSION - 04/06/2011 8:23 PM SEPTIC TANK SETTER Performed at [facility], [address] [place] [address] Lilian Persaud DO LAB_1 Performing Organization Address City/State/ZIP Code Phon e Number HP CONVERSION VENIPUNCTURE ([place]BE[place]) (04/06/2011) athologist Signature Venipuncture Done HP CONVERSION Specimen (Source) Anatomical Location Collection Method / Collectio n Time Received Time / Laterality Volume 04/06/2011 04/06/2011 Narrative HP CONVERSION - 04/06/2011 2:22 PM SEPTIC TANK SETTER Performed at [facility], [address] [facility] [place] [address] Lilian Persaud DO LAB_1 Performing Organization Address City/State/ZIP Code Phon e Number HP CONVERSION documented in this encounter Visit Diagnoses Diagnosis 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
--- OUTSIDE RECORDS SUMMARY | 2022-02-14 10:51 | XMS_ITS | Encounter Summary ---
:1970 Author Organization [employer] Address [address] [place] [address] Care Team Providers Name Role Phone Lilian Persaud DO Primary Care Provider Reason for Visit Reason Comments Diabetic Concern Encounter Details Date Type Department Care Team Description 03/25/2011 Telephone [facility] Lilian Persaud, Diabetic Concern [address] [address] [place] [address] [place] [address] [phone] (Wo rk) Social History Tobacco Use Types Packs/Day Years Used Date Smoking Tobacco: Never Assessed Sex Assigned at Date Recorded Not on file documented as of this encounter Nursing Notes Gagandeep Hinojosa MD - 03/25/2011 11:41 PM CST Done Nani Rojas LPN - 03/25/2011 11:08 AM CST Pt notified as advised. Expresses understanding. States is out of Metformin, so, requests refill to [facility] in [place]. Gagandeep Sosa MD - 03/25/2011 10:53 AM CST Call pt. Could restartr metformin 1000 mg daily to start, then BID. If vomiting resumes, discontinuemetformin and consider alternative med D ARTILLERY OPERATIONS SPECIALIST Marci Oliveira, RN - 03/25/2011 9:58 AM [...] or different plan? to clinician per distribution D ARTILLERY OPERATIONS SPECIALIST Jessica Tirado - 03/25/2011 9:52 AM CST Front Line Sx Call Primary Quality Liaison: Lilian Persaud DO Reason for call/symptom: pt would like to speak to nurse regarding high blood sugar D ARTILLERY OPERATIONS SPECIALIST documented in this encounter Plan of Treatment Not on filedocumented as of this encounter Visit Diagnoses Not on filedocumented in this encounter Care Teams Fire Extinguisher Inspector Relationship Specialty Start Date End Date Lilian Persaud DO PCP - General 12/23/10 05/16/12 [address] [place] [address] documented as of this encounter
--- OUTSIDE RECORDS SUMMARY | 2022-02-14 10:51 | XMS_ITS | Encounter Summary ---
:1970 Author [facility] Address [address], [place] [address] Care Team Providers Name Role Phone Lilian Persaud DO Primary Care Provider Reason for Visit Reason Comments Refill Encounter Details Date Type Department Care Team Description 02/17/2011 Refill [facility] Lilian Persaud DO Refill [address] [facility] . [address] [address] [place] [address] [place] [address] [phone] (Wo rk) Social History Tobacco Use Types Packs/Day Years Used Date Smoking Tobacco: Never Assessed Sex Assigned at Date Recorded Not on file documented as of this encounter Plan of Treatment Not on filedocumented as of this encounter Visit Diagnoses Not on filedocumented in this encounter Care Teams Summons Server Relationship Specialty Start Date End Date Lilian Persaud DO PCP - General 12/23/10 05/16/12 [address] [place] [address] documented as of this encounter
--- OUTSIDE RECORDS SUMMARY | 2022-02-14 10:51 | XMS_ITS | Encounter Summary ---
:1970 Author Organization [employer] Address [address] [place] [address] Care Team Providers Name Role Phone Lilian Persaud DO Primary Care Provider Reason for Visit Reason Comments Diabetes WART Encounter Details Date Type Department Care Team Description 04/06/2011 Office Visit [facility] Lilian Persaud, DM w/o complication type II, uncontrolled (Primary Dx); Medicine DO Other disorders of lipoid metabolism; [address] [address] [facility] [address] Hypertriglyceridemia; [place] [address] [place], [place] Plantar wart; [phone] DM renal manif type II, uncontrolled Social History Tobacco Use Types Packs/Day Years Used Date Smoking Tobacco: Never Assessed Sex Assigned at Date Recorded Not on file documented as of this encounter Last Filed Vital Signs Vital Sign Reading Time Taken Comments Blood Pressure 120/78 04/06/2011 1:05 PM SHEARING MACHINE TENDER Pulse 103 04/06/2011 1:05 PM SHEARING MACHINE TENDER Temperature - - Respiratory Rate - - Oxygen Saturation - - Inhaled Oxygen Concentration - - Weight 99.8 kg (220 lb) 04/06/2011 1:05 PM SHEARING MACHINE TENDER Height - - Body Mass Index 32.02 01/22/2011 11:08 AM CDT documented in this encounter Patient Instructions Patient InstructionsLilian Persaud DO - 04/06/2011 1:40 PM CST hold metformin. Start Metformin XR 500 mg at night, try 1 tab for a couple days, then increase to 2 tabs. Increase Glipizide XL to 20 mg daily. Continue Januvia at current dose. Follow up in 4-6 weeks. RING MACHINE TENDER documented in this encounter Progress Notes Lilian Persaud DO - 04/06/2011 1:59 PM CST Clinic Visit Chief Complaint Patient presents with ??? Diabetes ??? Verrucous Vulgaris SUBJECTIVE: Patient did well after cryotherapy on his left great toe wart. No signs of infection. Tolerated wellwithout pain. Patient has a history of warts. Patient would like to have his wart treated again today. Patient presents for follow up of Type 2 Diabetes. Patient has been monitor his blood sugars. his blood sugars went up into the 200s when he went off metformin. He stopped metformin for about a week and a half, secondary to suspected side effect of nausea and vomiting. Patient says within a day he felt much better and did not have any vomiting while he was off the metformin. Patient is quite adamant about not going on injections for treatment of diabetes. Denies abdominal pain. Minimal nausea occasionally. Patient says he gets up in the morning and vomits a small amount after gaggling a little. Diabetes: Lab Results Component Value Date/Time HGB A1C 9.8* 01/22/2011 11:58 Hemoglobin A1C 10.0* 11/25/2010 16:18 Hyperlipidemia: Patient has been taking fenofibrate and Lopid on a regular basis. He is due for fasting cholesterol.Patient is fasting today. Patient needs refill on fenofibrate. Lab Results Component Value Date/Time Cholesterol 276* [...] LW Reaction: Muscle spasm OBJECTIVE: Filed Vitals: 04/06/11 1305 BP: 120/78 Pulse: 103 Weight: 220 lb (99.791 kg) General: patient in NAD. Alert and oriented x3 CV: RRR without murmurs, rubs, or gallops. Resp: Clear to auscultation without crackles, wheezes or distress. Abdomen: The abdomen was flat, soft and nontender without guarding rebound or masses or organomegaly. Bowel sounds normal. Lower Extremities: No edema. Skin: 1-- 3 mm, round, verrucous papule on plantar surface of left 1st toe. No ulcers or wounds. Psychiatric: Alert & oriented with normal affect and insight. Patient does not appear depressed or anxious. Timur was seen today for diabetes and verrucous vulgaris. Diagnoses and associated orders for this visit: Dm w/o complication type ii, uncontrolled - glipiZIDE (GLUCOTROL XL) 10 mg 24 hr tablet; Take 2 tablets by mouth daily (every 24 hours). Do not cut/crush/chew - metFORMIN (GLUCOPHAGE-XR) 500 mg 24 hr tablet; Take 2 tablets by mouth nightly. Indications: TYPE 2 DIABETES MELLITUS - Hemoglobin A1C Glycosylated; Future Dm renal manif type ii, uncontrolled - glipiZIDE (GLUCOTROL XL) 10 mg 24 hr tablet; Take 2 tablets by mouth daily (every 24 hours). Do not cut/crush/chew - metFORMIN (GLUCOPHAGE-XR) 500 mg 24 hr tablet; Take 2 tablets by mouth nightly. Indications: TYPE 2 DIABETES MELLITUS - Hemoglobin A1C Glycosylated; Future Dyslipidemia #*lw 3 - Fenofibrate 160 mg tablet; Take 160 mg by mouth daily (every 24 hours). Indications: HYPERTRIGLYCERIDEMIA Hypertriglyceridemia - Fenofibrate 160 mg tablet; Take 160 mg by mouth daily (every 24 hours). Indications: HYPERTRIGLYCERIDEMIA Plantar wart - DESTRUCT BENIGN SKIN LESIONS UP TO 14 [id number] 1. Vomiting likely side effect of metformin. I recommended discontinuing metformin and trying metformin 500 mg p.o. q.h.s. Patient says he has done well with Januvia, continue 100 mg daily. Increase glipizide XL to 20 mg daily. Check fasting cholesterol liver function tests, electrolytes and glucose today. 2. Informed verbal consent obtained from the patient to treat. Patient opted for cryotherapy treatment againas follows: minimal debridement with sterile 15 blade after alcohol cleansing. 4 cycles of 5 second applications of liquid nitrogen were performed with freeze and the cycle. Band-Aid applied. 3. Warnings regarding pain and blister formation given. Patient advised with uncontrolled diabetes, he needs to keep a careful watch. Any signs of infection he is to return to the office for evaluation. 4. Verbal patient instruction given. 5. Follow up in 4-6 weeks 6. I will communicate test results when they're available. 7. Patient followup in one month for diabetes check.patient instructions with medication changes provided to the patient and highlighted. Patient will call if he has adverse side effects from the medications. Patient will followup in one month, sooner if needed. Patient quite adverse to injectable diabetes medications. Patient needs improved diabetes control and is also on psychotropic medications that cause diabetes. I discussed with the patient that he may need to use an injectable medication in the future, but we will try oral medications first. Patient said he was willing to continue on metformin with vomiting side effect if it meant he did not have to use injectable medication. He does not wan t the house all the injections. 8. Patient discharged in stable condition. documented in this encounter Plan of Treatment Not on filedocumented as of this encounter Visit Diagnoses Diagnosis Type II or unspecified type diabetes jasen litus without mention of complication, uncontrolled - Primary 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 Hypertriglyceridemia (HRC) Pure hyperglyceridemia Plantar wart Type II or unspecified type diabetes jasen litus with renal manifestations, uncontrolled(250.42) (HRC) Type II or unspecified type diabetes jasen litus with renal manifestations, uncontrolled documented in this encounter Care Teams Contractor Buyer Relationship Specialty Start Date End Date Lilian Persaud DO PCP - General 12/23/10 05/16/12 [address] [place] [address] documented as of this encounter
--- OUTSIDE RECORDS SUMMARY | 2022-02-14 10:52 | XMS_ITS | Encounter Summary ---
:1970 Author Organization [employer] Address [address], [place] [address] Care Team Providers Name Role Phone Antonio Jerez MD Primary Care Provider Reason for Visit Reason Comments Lucy Burciaga Encounter Details Date Type Department Care Team Description 11/25/2010 Office Visit [facility] Lilian Persaud Stye; Medicine DO Dermatophytosis of the body; [address] [address] [place] C T DM w/o complication type II, uncontrolle d; [address] [place], [place] Other disorders [place] [address] [phone] Social History Tobacco Use Types Packs/Day Years [...] a year ago. He was diagnosed at [facility] during an ER hospital stay. Patient [...] metabolism documented in this encounter Care Teams Photo Finish Photographer Relationship Specialty Start Date End Date Antonio Jerez MD PCP - General 07/25/10 12/22/[address] [place] [address] [place] [address] documented as of this encounter
--- OUTSIDE RECORDS SUMMARY | 2022-02-14 10:52 | XMS_ITS | Encounter Summary ---
:1970 Author Organization [facility] Address [address] [place] [address] Care Team Providers Name Role Phone Lilian Persaud DO Primary Care Provider Encounter Details Date Type Department Care Team Description 01/22/2011 Notes/Orders Lilian Camejo, Pure hyperglyceridemia; Medicine DO DM w/o complication type II, uncontrolle d [address] [facility] [address] [place] [address] [place], [place] [phone] [address] Social History Tobacco Use Types Packs/Day Years Used Date Smoking Tobacco: Never Assessed Sex Assigned at Date Recorded Not on file documented as of this encounter Plan of Treatment Not on filedocumented as of this encounter Visit Diagnoses Diagnosis Pure hyperglyceridemia (HRC) Pure hyperglyceridemia Type II or unspecified type diabetes jasen litus without mention of complication, uncontrolled documented in this encounter Care Teams Epic Specialist Relationship Specialty Start Date End Date Lilian Persaud DO PCP - General 12/23/10 05/16/12 [address] [facility] [place] [address] documented as of this encounter
--- OUTSIDE RECORDS SUMMARY | 2022-02-14 10:52 | XMS_ITS | Encounter Summary ---
:1970 [facility] Address [address] [place] [address] Care Team Providers Name Role Phone Antonio Jerez MD Primary Care Provider Encounter Details Date Type Department Care Team Description 11/25/2010 Notes/Orders Lilian Camejo, DM w/o complication Medicine DO type II, uncontrolled [address] [facility] . [address] [facility] [address] (Primary Dx) [place] [address] [place], [place] [phone] [address] Social History Tobacco Use Types Packs/Day Years Used Date Smoking Tobacco: Never Assessed Sex Assigned at Date Recorded Not on file documented as of this encounter Plan of Treatment Not on filedocumented as of this encounter Visit Diagnoses Diagnosis Type II or unspecified type diabetes jasen litus without mention of complication, uncontrolled - Primary documented in this encounter Care Teams Concert Or Lecture Hall Manager Relationship Specialty Start Date End Date Antonio Jerez MD PCP - General 07/25/10 12/22/10 [address] [place] [address] documented as of this encounter
--- OUTSIDE RECORDS SUMMARY | 2022-02-14 10:52 | XMS_ITS | Encounter Summary ---
:1970 Author Organization [facility] Address [address] [place] [address] Care Team Providers Name Role Phone Antonio Jerez MD Primary Care Provider Reason for Visit Reason Comments Other Encounter Details Date Type Department Care Team Description 12/22/2009 Telephone [facility], Message Other [address] [facility] [place], [place] [address] Social History Tobacco Use Types Packs/Day Years Used Date Smoking Tobacco: Never Assessed Sex Assigned at Date Recorded Not on file documented as of this encounter Progress Notes Stevenson Norris MD - 12/22/2009 1:40 PM CDT Phone Note filed by Stevenson Norris MD at 08/15/101643 Author: Stevenson Norris MD Service: (none) Author Type: Physician Filed: 08/15/101643 Note Time: 12/22/09 1340 Status: Signed Simulation Tech: Stevenson Norris MD (Physician) Please schedule FU with me in 4 weeks Created on 22Dec2009 1:40pm by STEVENSON NORRIS On 24Dec2009 1:27pm RENATE MORELAND wrote: Called #[phone], left message for return call to [facility]. Called #[phone], number has been disconnected. On [id number] 10:14am TRA HATFIELD wrote: appt. made Acknowledged by TRA HATFIELD on 10:14am OFFICER documented in this encounter Plan of Treatment Not on filedocumented as of this encounter Visit Diagnoses Not on filedocumented in this encounter Care Teams Agile Test Lead Relationship Specialty Start Date End Date Antonio Jerez MD PCP - General 07/25/10 12/22/10 [address] [place] [address] documented as of this encounter
--- OUTSIDE RECORDS SUMMARY | 2022-02-14 10:52 | XMS_ITS | Encounter Summary ---
:1970 Author Organization [facility] Address [address] [place] [address] Care Team Providers Name Role Phone Lilian Persaud DO Primary Care Provider Reason for Visit Reason Comments Refill Encounter Details Date Type Department Care Team Description 01/08/2011 Refill [facility] Lilian Persaud DO Refill [address] [facility] . [address] [address] [place] Ramirez [address] [place] [address] [phone] (Wo rk) Social History Tobacco Use Types [...] uncontrolled documented in this encounter Care Teams Arterial Embalmer Relationship Specialty Start Date End Date Lilian Persaud DO PCP - General 12/23/10 05/16/12 [address] [facility] [place] [address] documented as of this encounter
--- OUTSIDE RECORDS SUMMARY | 2022-02-14 10:52 | XMS_ITS | Encounter Summary ---
:1970 Author Organization [facility] Address [address], [place] [address] Care Team Providers Name Role Phone Antonio Jerez MD Primary Care Provider Encounter Details Date Type Department Care Team Description 11/29/2009 PN Conversion Only OTHER CONVERSION [address] [place] [address] Social History Tobacco Use Types Packs/Day Years Used Date Smoking Tobacco: Never Assessed Sex Assigned at Date Recorded Not on file documented as of this encounter Plan of Treatment Not on filedocumented as of this encounter Visit Diagnoses Not on filedocumented in this encounter Care Teams Transmission Line Engineer Relationship Specialty Start Date End Date Antonio Jerez MD PCP - General 07/25/10 12/22/10 [address] [place] [address] documented as of this encounter
--- OUTSIDE RECORDS SUMMARY | 2022-02-14 10:52 | XMS_ITS | Encounter Summary ---
:1970 Author Organization [employer] Address [address] [place] [address] Care Team Providers Name Role Phone Antonio Jerez MD Primary Care Provider Reason for Visit Reason Comments Follow-up Refill Diabetes Encounter Details Date Type Department Care Team Description 12/11/2010 Office Visit Lilian Camejo, DM w/o complication type II, uncontrolled; Medicine DO Hypertriglyceridemia; [address] Nonspecific abnormal results of [place] [address] [place], [place] [phone] Social History Tobacco Use Types Packs/Day Years [...] hospital discharge summary and records reviewed from [facility] from admission November 26 through November 27, [...] has not made an appointment with the gambling supervisor yet. patient has had procedure in the [...] BP: 102/66 Pulse: 104 Weight: 215 lb (39475 g) General: Patient alert, in NAD. Head: [...] study documented in this encounter Care Teams Regional Guide Relationship Specialty Start Date End Date Antonio Jerez MD PCP - General 07/25/10 12/22/[address] [place] [address] documented as of this encounter
--- OUTSIDE RECORDS SUMMARY | 2022-02-14 10:52 | XMS_ITS | Encounter Summary ---
:1970 Author Organization [employer] Address [address] [place] [address] Care Team Providers Name Role Phone Lilian Persaud DO Primary Care Provider Reason for Visit Reason Comments Medication Questions Encounter Details Date Type Department Care Team Description 01/08/2011 Refill [facility] Lilian Persaud DO Medication Questions [address] [address] [place] [address] [place] [address] [phone] (Wo rk) Social History Tobacco Use Types [...] uncontrolled documented in this encounter Care Teams Conservation Science Teacher Relationship Specialty Start Date End Date Lilian Persaud DO PCP - General 12/23/10 05/16/12 [address] [place] [address] documented as of this encounter
--- OUTSIDE RECORDS SUMMARY | 2022-02-14 10:52 | XMS_ITS | Encounter Summary ---
:1970 Author Organization [employer] Address [address], [place] [address] Care Team Providers Name Role Phone Antonio Jerez MD Primary Care Provider Encounter Details Date Type Department Care Team Description 12/21/2009 PN Conversion Only CONVERSION CONVERSION Ida Woodall MD [address] [place] [address] Social History Tobacco Use Types Packs/Day Years Used Date Smoking Tobacco: Never Assessed Sex Assigned at Date Recorded Not on file documented as of this encounter Plan of Treatment Not on filedocumented as of this encounter Visit Diagnoses Not on filedocumented in this encounter Care Teams Stunt Performer Relationship Specialty Start Date End Date Antonio Jerez MD PCP - General 07/25/10 12/22/10 [address] [place], [place] [address] documented as of this encounter
--- OUTSIDE RECORDS SUMMARY | 2022-02-14 10:52 | XMS_ITS | Encounter Summary ---
:1970 Author Organization [facility] Address [address], [place] [address] Care Team Providers Name Role Phone Antonio Jerez MD Primary Care Provider Encounter Details Date Type Department Care Team Description 09/04/2010 PN Conversion Only [facility] CONVERSION [address] [place] [address] Social History Tobacco Use Types Packs/Day Years Used Date Smoking Tobacco: Never Assessed Sex Assigned at Date Recorded Not on file documented as of this encounter Plan of Treatment Not on filedocumented as of this encounter Visit Diagnoses Not on filedocumented in this encounter Care Teams Workforce Manager Relationship Specialty Start Date End Date Antonio Jerez MD PCP - General 07/25/10 12/22/10 [address] [place] [address] documented as of this encounter
--- OUTSIDE RECORDS SUMMARY | 2022-02-14 10:52 | XMS_ITS | Encounter Summary ---
:1970 Author Organization [employer] Address [address] [place] [address] Care Team Providers Name Role Phone Lilian Persaud DO Primary Care Provider Reason for Visit Reason Comments Follow-up Encounter Details Date Type Department Care Team Description 01/22/2011 Office Visit [facility] Lilian Persaud, DM (ralph betes mellitus) type II uncontrolled with renal manifestation (Primary Dx); Medicine DO Hypertriglyceridemia; [address] Erectile dysfunction; [place] [address] [place], [place] Tobacco use disorder; [phone] Chest pain Social History Tobacco Use [...] denies any history of pancreatitis. Patient's last [id number] was 10.0. Patient has a history of [...] ago. He has not been to the polysomnographic technician since. Ongoing for a several weeks. No [...] 5' 9.5 (176.5 cm) Weight: 217 lb (62902 g) General: Patient alert, in NAD. Left [...] unspecified documented in this encounter Care Teams Band Machine Operator Relationship Specialty Start Date End Date Lilian Persaud DO PCP - General 12/23/10 05/16/12 [address] [place] [address] documented as of this encounter
--- OUTSIDE RECORDS SUMMARY | 2022-02-14 10:52 | XMS_ITS | Encounter Summary ---
:1970 Author Organization [facility] Address [address] [address] Care Team Providers Name Role Phone Antonio Jerez MD Primary Care Provider Encounter Details Date Type Department Care Team Description 10/08/2009 PN Conversion Only OTHER CONVERSION [address] [place] [address] Social History Tobacco Use Types Packs/Day Years Used Date Smoking Tobacco: Never Assessed Sex Assigned at Date Recorded Not on file documented as of this encounter Plan of Treatment Not on filedocumented as of this encounter Visit Diagnoses Not on filedocumented in this encounter Care Teams Seam Checker Relationship Specialty Start Date End Date Antonio Jerez MD PCP - General 07/25/10 12/22/10 [address] [place] [address] documented as of this encounter
--- OUTSIDE RECORDS SUMMARY | 2022-02-14 10:52 | XMS_ITS | Encounter Summary ---
:1970 Author Organization [facility] Address [address], [place] [address] Care Team Providers Name Role Phone Antonio Jerez MD Primary Care Provider Encounter Details Date Type Department Care Team Description 12/22/2009 PN Conversion Only CONV FAMILIY Alexsander Mock MD [address] [place] [address] [place] [address] (Wo rk) Social History Tobacco Use Types Packs/Day Years Used Date Smoking Tobacco: Never Assessed Sex Assigned at Date Recorded Not on file documented as of this encounter Plan of Treatment Not on filedocumented as of this encounter Visit Diagnoses Not on filedocumented in this encounter Care Teams Tapeman Relationship Specialty Start Date End Date Antonio Jerez MD PCP - General 07/25/10 12/22/10 [address] [place], [place] [address] documented as of this encounter
--- OUTSIDE RECORDS SUMMARY | 2022-02-14 10:52 | XMS_ITS | Encounter Summary ---
:1970 Author Organization [facility] Address [address] [place] [address] Care Team Providers Name Role Phone Antonio Jerez MD Primary Care Provider Encounter Details Date Type Department Care Team Description 08/20/2010 PN Conversion Only [facility] Antonio Jerez , Medicine MD [address] [facility] . [address] [place] [address] [place] [address] (Wo rk) Social History Tobacco Use Types Packs/Day Years Used Date Smoking Tobacco: Never Assessed Sex Assigned at Date Recorded Not on file documented as of this encounter Plan of Treatment Not on filedocumented as of this encounter Visit Diagnoses Not on filedocumented in this encounter Care Teams Mobile Therapist Relationship Specialty Start Date End Date Antonio Jerez MD PCP - General 07/25/10 12/22/10 [address] [place] [address] documented as of this encounter
--- OUTSIDE RECORDS SUMMARY | 2022-02-14 10:52 | XMS_ITS | Encounter Summary ---
:1970 Author Organization [facility] Address [address], [place] [address] Care Team Providers Name Role Phone Antonio Jerez MD Primary Care Provider Encounter Details Date Type Department Care Team Description 07/13/2009 Office Visit [facility] [place] [address] [place] [address] Social History Tobacco Use Types [...] 12:01 AM CDT NAME: SHARLENE VARNER MR#: [id number] ACCT: [id number] VISIT: [id number] DICTATING CLINICIAN: HAILEE VILLARREAL MD CONFIRM #: [id number] LOC: 520 CLINIC PROGRESS NOTE DATE OF VISIT: 07/13/2009 SUBJECTIVE: This 39-year-old male comes in with a few concerns. He has a history of bipolar and has been seen by a psychiatrist in the past. His primary psychiatrist is Dr. Vane Woo, currently does not work at [facility], and he has continued to see her [...] Xanax at night to avoid taking Benadryl. [id number] C: 07/13/09 10:14 CONFIRM #: [id number] documented in this encounter Plan of Treatment Not on filedocumented as of this encounter Visit Diagnoses Not on filedocumented in this encounter Care Teams All Terrain Vehicle Technician Relationship Specialty Start Date End Date Antonio Jerez MD PCP - General 07/25/10 12/22/10 [facility] [place] [place] [address] documented as of this encounter
--- OUTSIDE RECORDS SUMMARY | 2022-02-14 10:52 | XMS_ITS | Encounter Summary ---
:1970 Author Organization [employer] Address [address] [place] [address] Care Team Providers Name Role Phone Antonio Jerez MD Primary Care Provider Reason for Visit Reason Comments Test Request Encounter Details Date Type Department Care Team Description 12/18/2010 Telephone [facility] Lilian Persaud, Test Request [address] [address] [place] [address] [place] [address] [phone] (Wo rk) Social History Tobacco Use Types [...] filedocumented in this encounter Care Teams Manager Of Finance Relationship Specialty Start Date End Date Antonio Jerez MD PCP - General 07/25/10 12/22/10 [facility] [place] [address] documented as of this encounter
--- OUTSIDE RECORDS SUMMARY | 2022-02-14 10:52 | XMS_ITS | Encounter Summary ---
:1970 Author Organization [facility] Address [address], [place] [address] Care Team Providers Name Role Phone Antonio Jerez MD Primary Care Provider Encounter Details Date Type Department Care Team Description 10/08/2009 Textile Bag Sewer Only CONVERSION CONVERSION Ida Woodall MD [address] [place] [address] Social History Tobacco Use Types Packs/Day Years Used Date Smoking Tobacco: Never Assessed Sex Assigned at Date Recorded Not on file documented as of this encounter Progress Notes Erich Woodall MD - 10/08/2009 12:01 AM CDT Progress Notes signed by Erich Woodall MD at 10/08/09 0822 Author: Erich Woodall MD Service: (none) Author Type: Physician Filed: 08/15/10 0030 Note Time: 10/08/09 0001 Status: Signed Wildlife Control Agent: Erich Woodall MD (Physician) HOSPITAL DISCHARGE SUMMARY Patient Name: Timur Krishnamurthy Date of : 1970 Age: 39 y.o. Primary Physician: Antonio Jerez Admission Date: 10/07/2009 Discharge Date: 10/08/2009 He will be discharged from [facility] to home. PRINCIPAL DISCHARGE DIAGNOSIS: chest pain, suicidality Patient Active Hospital Problem List: *Unspecified chest pain (10/07/2009) BIPOLAR DISORDER (02/13/2007) Hyperglycemia (10/07/2009) BRIEF HOSPITAL COURSE : This 39 y.o. male presented to the ED with abrupt onset substernal chest pain as well as passive suicidal ideation and was admitted for evaluation. Serial enzymes were negative and he had a stress echo which was also negative. He was seen by crisis after his stress test and felt stable for continued outpatient followup. He contracted for safety. He was found to have very high triglycerides and was started on tricor His blood sugar was consistently over 200 his entire stay and he was started on glipizide and seen by diabetes education. He is referred for continued outpatient education. A1c was 12.5 PROCEDURES PERFORMED DURING HOSPITALIZATION : None COMPLICATIONS IN HOSPITAL : None PERTINENT FINDINGS/RESULTS AT DISCHARGE : BP 129/84 Pulse 92 Temp 98.6 F (37 C) Resp 18 Ht 1.778 m (5' 10) Wt 96.2 kg (212 lb 1.3 oz) SpO2 94% Patient Wt - Scale in the past 72 hrs: * Wt - Scale 10/08/09 0246 96.2 kg (212 lb 1.3 oz) 10/07/09 1817 95.754 kg (211 lb 1.6 oz) 10/07/09 1457 81.647 kg (180 lb) Cholesterol 211 HDL 27 LDL could not calc TG 472 Urine drug screen negative Latest Laboratory Results: Chem: Recent Labs Basename 10/08/09 0608 10/07/09 1525 SODIUM 132L 130L POTASSIUM 4.7 4.4 CREATININE 0.74 0.69 WBC/Hgb: Recent Labs Basename 10/08/09 0608 10/07/09 1525 WBC 6.8 6.6 HGB 15.1 16.9 INR: Recent Labs Basename 10/07/09 1525 INR 1.0 IMPORTANT PENDING TEST RESULTS :None CONDITION AT DISCHARGE: Improving DISCHARGE ORDERS Current Discharge Medication List START taking these medications T blood sugar diagnostic strip As directed. Dispense test strips covered by the patient insurance. Test 2 times per day. X fenofibrate nanocrystallized (TRICOR) 48 mg tablet Take 1 tablet by mouth once daily with a meal. For high cholesterol [ glipiZIDE SR (GLUCOTROL XL) 5 mg CR tablet Take 1 tablet by mouth once daily before a meal. For blood sugar ^ lancets As directed. Test 2 times per day. CONTINUE these medications which have CHANGED or been REFILLED d divalproex DELAYED release (DEPAKOTE) 500 mg tablet Take 5 tablets by mouth once daily. g perphenazine 4 mg tablet Take 1 tablet by mouth 2 times daily. j risperidone (RISPERDAL) 3 mg tablet Take 2 tablets by mouth at bedtime. CONTINUE these medications which have NOT CHANGED p ALPRAZolam (XANAX) 0.25 mg tablet Take 0.25 mg by mouth 3 times daily if needed. 1-2 three times daily as needed Discharge Procedure Orders OP CONSULT TO DIABETES EDUCATION Order Comments: REFERRAL FOR DIABETES EDUCATION I certify that diabetes self-management education services are needed under a comprehensive plan of care for; newly diagnosed diabetes Only through a program of diabetes self-management training can the patient acquire the necessary skills and knowledge to comply with the treatment plan. The following plan of care is ordered; diabetes medication management and initial 1x1 diabetes self management training. Barriers for group training; psychiatric illness - 10 hours Diabetes self management training content; monitoring diabetes , psychological adjustment , nutritional management , medications , diabetes as disease process , physical activity , goal setting, problem solving , prevent, detect and treat acute complications and prevent, detect and treat chronic complications Providers Electronic signature; Erich Woodall MD Date; 10/08/2009 Providers signature (if printed); Activity: As Tolerated Diet: Diabetic Follow Up: With Primary MD in 3-4 Days FOLLOW-UP : He should see Antonio Jerez in 3-4 days. Specialty follow-up: with psychiatry tomorrow as arranged AFTER HOSPITAL RECOMMENDATIONS Recommendations for outpatient physician: continue med titration for diabetes and hyperlipidemia Suggested outpatient medication adjustments : None Total time spent for discharge on date of discharge: 25 minutes Physician(s) in addition to primary physician who should receive a copy: CC1: documented in this encounter Plan of Treatment Not on filedocumented as of this encounter Visit Diagnoses Not on filedocumented in this encounter Care Teams Evp Relationship Specialty Start Date End Date Antonio Jerez MD PCP - General 07/25/10 12/22/10 [address] [facility] [address] documented as of this encounter
--- OUTSIDE RECORDS SUMMARY | 2022-02-14 10:52 | XMS_ITS | Encounter Summary ---
:1970 Author Organization [facility] Address [address] [place] [address] Care Team Providers Name Role Phone Antonio Jerez MD Primary Care Provider Encounter Details Date Type Department Care Team Description 12/11/2010 Notes/Orders Lilian Camejo, Pure hyperglyceridemia; Medicine DO DM w/o complication type II, uncontrolle d [address] [facility] . [address] [place] [address] [place], [place] [phone] [address] Social History Tobacco Use Types Packs/Day Years Used Date Smoking Tobacco: Never Assessed Sex Assigned at Date Recorded Not on file documented as of this encounter Plan of Treatment Not on filedocumented as of this encounter Visit Diagnoses Diagnosis Pure hyperglyceridemia (HRC) Pure hyperglyceridemia Type II or unspecified type diabetes jasen litus without mention of complication, uncontrolled documented in this encounter Care Teams Locker Room Clerk Relationship Specialty Start Date End Date Antonio Jerez MD PCP - General 07/25/10 12/22/10 [address] [place] [address] documented as of this encounter
--- OUTSIDE RECORDS SUMMARY | 2022-02-14 10:52 | XMS_ITS | Encounter Summary ---
:1970 Author Organization [employer] Address [address], [place] [address] Care Team Providers Name Role Phone Antonio Jerez MD Primary Care Provider Encounter Details Date Type Department Care Team Description 12/01/2009 PN Conversion Only TENRIISM CONVERSION Richie Woodall MD [address] [place] [address] Social History Tobacco Use Types Packs/Day Years Used Date Smoking Tobacco: Never Assessed Sex Assigned at Date Recorded Not on file documented as of this encounter Plan of Treatment Not on filedocumented as of this encounter Visit Diagnoses Not on filedocumented in this encounter Care Teams Park Warden Relationship Specialty Start Date End Date Antonio Jerez MD PCP - General 07/25/10 12/22/10 [address] [place], [place] [address] documented as of this encounter
--- OUTSIDE RECORDS SUMMARY | 2022-02-14 10:52 | XMS_ITS | Encounter Summary ---
:1970 Author Organization [facility] Address [address], [place] [address] Care Team Providers Name Role Phone Antonio Jerez MD Primary Care Provider Encounter Details Date Type Department Care Team Description 10/08/2009 PN Conversion Only RESTORATIONIST CONVERSION Richie Woodall MD [address] [place], [place] [address] Social History Tobacco Use Types Packs/Day Years [...] section. documented in this encounter Results [facility] Stress Echocardiogram (10/08/2009 11:59 AM CDT) Specimen [...] on filedocumented in this encounter Care Teams Missing Persons Investigator Relationship Specialty Start Date End Date Antonio Jerez MD PCP - General 07/25/10 12/22/[address] [place] [address] documented as of this encounter
--- OUTSIDE RECORDS SUMMARY | 2022-02-14 10:52 | XMS_ITS | Encounter Summary ---
:1970 Author Organization [facility] Address [address] [place] [address] Care Team Providers Name Role Phone Michel Daniel MD Primary Care Provider Encounter Details Date Type Department Care Team Description 03/24/2009 Office Visit [facility] Michel Daniel MD [address] [facility] . [address] [place] [address] [place] [address] [phone] (Wo rk) Social History Tobacco Use Types Packs/Day Years Used Date Smoking Tobacco: Never Assessed Sex Assigned at Date Recorded Not on file documented as of this encounter Last Filed Vital Signs Vital Sign Reading Time Taken Comments Blood Pressure 128/76 03/24/2009 1:14 PM COOPERATIVE EDUCATION COORDINATOR Pulse 88 03/24/2009 1:14 PM COOPERATIVE EDUCATION COORDINATOR Temperature - - Respiratory Rate - - Oxygen Saturation - - Inhaled Oxygen Concentration - - Weight 99.5 kg (219 lb 4 oz) 03/24/2009 1:14 PM COOPERATIVE EDUCATION COORDINATOR C: 99.5kg Height - - Body Mass Index 31.46 06/24/2008 12:32 PM COOPERATIVE EDUCATION COORDINATOR documented in this encounter Progress Notes Michel Daniel MD - 03/24/2009 12:01 AM CST Progress Notes signed by Michel Daniel MD at 03/25/09 0748 Author: Michel Daniel MD Service: (none) Author Type: Physician Filed: 08/15/10 1824 Note Time: 03/24/09 0001 Status: Signed Laborer Vineyard: Michel Daniel MD (Physician) NAME: SHARLENE VARNER MR#: [id number] ACCT: [id number] VISIT: [id number] DICTATING CLINICIAN: MICHEL DANIEL MD CONFIRM #: [id number] LOC: 1202 CLINIC PROGRESS NOTE DATE OF [...] attempt to lose some weight. Recheck p.r.n. [id number] C: 03/24/09 16:45 CONFIRM #: [id number] ERATIVE EDUCATION COORDINATOR documented in this encounter Plan of Treatment Not on filedocumented as of this encounter Visit Diagnoses Not on filedocumented in this encounter Care Teams Social Media Community Manager Relationship Specialty Start Date End Date Michel Daniel MD PCP - General 07/25/10 12/22/10 [address] [place] [address] documented as of this encounter
--- OUTSIDE RECORDS SUMMARY | 2022-02-14 10:52 | XMS_ITS | Encounter Summary ---
:1970 Author Organization [facility] Address [address] [address] Care Team Providers Name Role Phone Antonio Jerez MD Primary Care Provider Encounter Details Date Type Department Care Team Description 12/01/2009 Powertrain Calibration Engineer Only CONVERSION CONVERSION Ida Woodall MD [address] [place] [address] Social History Tobacco Use Types Packs/Day Years [...] 0023 Note Time: 12/01/09 0001 Status: Signed Waiter/Waitress Room Service: Erich Woodall MD (Physician) HOSPITAL DISCHARGE SUMMARY Patient Name: Timur Krishnamurthy Date of : 1970 Age: 39 y.o. Primary Physician: Antonio Jerez Admission Date: 11/29/2009 Discharge Date: 11/30/2009 He will be discharged from [facility] to home. 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 He was discharged [...] filedocumented in this encounter Care Teams Crib Attendant Relationship Specialty Start Date End Date Antonio Jerez MD PCP - General 07/25/10 12/22/10 [address] [facility] [place] [address] documented as of this encounter
--- OUTSIDE RECORDS SUMMARY | 2022-02-14 10:52 | XMS_ITS | Encounter Summary ---
:1970 Author Organization [facility] Address [address] [address] Care Team Providers Name Role Phone Antonio Jerez MD Primary Care Provider Encounter Details Date Type Department Care Team Description 11/06/2009 PN Conversion Only OTHER CONVERSION [address] [place] [address] Social History Tobacco Use Types Packs/Day Years Used Date Smoking Tobacco: Never Assessed Sex Assigned at Date Recorded Not on file documented as of this encounter Plan of Treatment Not on filedocumented as of this encounter Visit Diagnoses Not on filedocumented in this encounter Care Teams Corporate Secretary Relationship Specialty Start Date End Date Antonio Jerez MD PCP - General 07/25/10 12/22/10 [address] [place] [address] documented as of this encounter
--- OUTSIDE RECORDS SUMMARY | 2022-02-14 10:52 | XMS_ITS | Encounter Summary ---
:1970 Author Organization [facility] Address [address] [place] [address] Care Team Providers Name Role Phone Lilian Persaud DO Primary Care Provider Encounter Details Date Type Department Care Team Description 12/23/2010 Lab Visit [facility] Encounter for long-term [address] (current) use of other [place] [address] medications [phone] Social History Tobacco Use Types Packs/Day Years [...] - 12/23/2010 8:20 PM CDT Performed at [facility], [address] [place] [address] Lilian Persaud DO LAB_1 Performing Organization Address [facility] Phon e Number HP CONVERSION AST (12/23/2010 2:44 PM CDT) [facility] [employer]ala[employer] Method Time Signature Aspartate 26 0 - 45 HP CONVERSION Aminotransferase U/L Specimen Anatomical Collection Method Collection Time Receive d Time (Source) Location / / Volume Laterality 12/23/2010 2:44 PM 1 7:57 CDT PM CDT Narrative HP CONVERSION - 12/23/2010 8:20 PM CDT Performed at [facility], [address] [place] [address] Lilian Persaud DO LAB_1 Performing Organization Address [facility] Phon e Number HP CONVERSION ALT (SGPT) (12/23/2010 2:44 PM CDT) [facility] [employer] Method Time Signature Alanine 38 4 - 55 HP CONVERSION Aminotransferase U/L Specimen Anatomical Collection Method Collection Time Receive d Time (Source) Location / / Volume Laterality 12/23/2010 2:44 PM 1 7:57 CDT PM CDT Narrative HP CONVERSION - 12/23/2010 8:20 PM CDT Performed at [facility], [address] [place] [address] Lilian Persaud DO LAB_1 Performing Organization Address [facility] Phon e Number HP CONVERSION VENIPUNCTURE (SOBEIDA) (12/23/2010 2:38 PM CDT) athologist Signature Venipuncture Done HP CONVERSION Specimen (Source) Anatomical Collection Method Collection Time Re ceived Time Location / / Volume Laterality 12/23/2010 2:38 PM CDT Narrative HP CONVERSION - 12/23/2010 2:38 PM CDT Performed at [facility], [address] [place], [place] [address] [address] Lilian Persaud DO LAB_1 Performing Organization Address City/State/ZIP Code Phon e Number HP CONVERSION documented in this encounter Visit Diagnoses Diagnosis Encounter for long-term (current) use of other medications documented in this encounter Care Teams Hot Shot Relationship Specialty Start Date End Date Lilian Persaud DO PCP - General 12/23/10 05/16/[address] [place] [address] [place] [address] documented as of this encounter
--- OUTSIDE RECORDS SUMMARY | 2022-02-14 10:52 | XMS_ITS | Encounter Summary ---
:1970 Author [facility] Address [address] [place] [address] Care Team Providers Name Role Phone Lilian Persaud DO Primary Care Provider Encounter Details Date Type Department Care Team Description 12/23/2010 Notes/Orders Lilian Camejo Encount er for Medicine DO long-term (current) [address] [facility] . [address] use of other [place] [address] [place], [place] medications (Primary [phone] Dx) Social History Tobacco Use Types Packs/Day Years Used Date Smoking Tobacco: Never Assessed Sex Assigned at Date Recorded Not on file documented as of this encounter Plan of Treatment Not on filedocumented as of this encounter Visit Diagnoses Diagnosis Encounter for long-term (current) use of other medications - Primary documented in this encounter Care Teams Project Control Officer Relationship Specialty Start Date End Date Lilian Persaud DO PCP - General 12/23/10 05/16/12 14[address] [facility] [place] [address] documented as of this encounter
--- OUTSIDE RECORDS SUMMARY | 2022-02-14 10:52 | XMS_ITS | Encounter Summary ---
:1970 Author Organization [facility] Address [address] [place] [address] Care Team Providers Name Role Phone Antonio Jerez MD Primary Care Provider Reason for Visit Reason Comments Other Encounter Details Date Type Department Care Team Description 11/26/[address] [facility] Mimi Rodrigues RN Other [address] [place], [place] [address] Social History Tobacco Use Types Packs/Day Years [...] LPN - 11/26/2010 2:49 PM CDT [facility] [address] Olga Peterson V - 11/26/2010 1:09 PM CDT Please call patient to inform that his sodium is significantly low. Low sodium could caused extreme fatigue. It will be best to be seen today at urgent care or the emergency room for IV fluid hydration Mimi Rodrigues RN - 11/26/2010 12:17 PM CDT [facility] lab calling with critical result. Sodium is 126. Triage forwarding to clinician per distribution list to address. documented in this encounter Plan of Treatment Not on filedocumented as of this encounter Visit Diagnoses Not on filedocumented in this encounter Care Teams Manager Care Relationship Specialty Start Date End Date Antonio Jerez MD PCP - General 07/25/10 12/22/10 [address] [facility] [place] [address] documented as of this encounter
--- OUTSIDE RECORDS SUMMARY | 2022-02-14 10:52 | XMS_ITS | Encounter Summary ---
:1970 Author Organization [facility] Address [address] [place] [address] Care Team Providers Name Role Phone Antonio Jerez MD Primary Care Provider Encounter Details Date Type Department Care Team Description 06/19/2010 PN Conversion Only [place] CONVERSION Vane Zarate MD [address] [facility] [address] [place] [address] [address] [place] [address] Social History Tobacco Use Types Packs/Day Years Used Date Smoking Tobacco: Never Assessed Sex Assigned at Date Recorded Not on file documented as of this encounter Plan of Treatment Not on filedocumented as of this encounter Procedures Procedure Name Priority Date/Time Associated Comments Diagnosis CARNITINE FREE AND Routine 06/19/2010 4:02 PM Res ults for this TOTAL NURSING PROGRAM DIRECTOR procedure are i n the results section. COMPLETE BLOOD Routine 06/19/2010 4:02 PM Results for this COUNT-W/DIFF NURSING PROGRAM DIRECTOR procedure are i n the results section. DIFFERENTIAL Routine 06/19/2010 4:02 PM Results f or this NURSING PROGRAM DIRECTOR procedure are i n the results section. AMYLASE Routine 06/19/2010 4:02 PM Results f or this NURSING PROGRAM DIRECTOR procedure are i n the results section. VALPROIC ACID Routine 06/19/2010 4:02 PM Results for this (DEPAKENE) NURSING PROGRAM DIRECTOR procedure are i n the results section. LIPASE Routine 06/19/2010 4:02 PM Results f or this NURSING PROGRAM DIRECTOR procedure are i n the results section. GT (GAMMA GT) Routine 06/19/2010 4:02 PM Results for this NURSING PROGRAM DIRECTOR procedure are i n the results section. AMMONIA Routine 06/19/2010 4:02 PM Results f or this NURSING PROGRAM DIRECTOR procedure are i n the results section. ALT (SGPT) Routine 06/19/2010 4:02 PM Results f or this NURSING PROGRAM DIRECTOR procedure are i n the results section. AST Routine 06/19/2010 4:02 PM Results f or this NURSING PROGRAM DIRECTOR procedure are i n the results section. CK, TOTAL Routine 06/19/2010 4:02 PM Results f or this NURSING PROGRAM DIRECTOR procedure are i n the results section. documented in this encounter Results (ABNORMAL) Differential (06/19/2010 4:02 PM NURSING PROGRAM DIRECTOR) [facility] gist Method Time Signature Absolute 3.2 1.8 [...] / / Volume Laterality 06/19/2010 4:02 PM NURSING PROGRAM DIRECTOR Vane Zarate MD LAB_1 Performing Organization Address City/State/ZIP Code Phon e Number HP CONVERSION Ammonia (06/19/2010 4:02 PM NURSING PROGRAM DIRECTOR) athologist Signature Ammonia, Blood 32 0 - 44 HP CONVERSION umol/L Specimen (Source) Anatomical Collection Method Collection Time Re ceived Time Location / / Volume Laterality 06/19/2010 4:02 PM NURSING PROGRAM DIRECTOR Vane Zarate MD LAB_1 Performing Organization Address City/State/ZIP Code Phon e Number HP CONVERSION CARNITINE FREE AND TOTAL (06/19/2010 4:02 PM NURSING PROGRAM DIRECTOR) athologist Signature Carnitine, Free 30 25 - 60 HP CONVERSION umol/L Comment: faxed to [phone], 011,15:43, by STEDA Carnitine, Total 42 34 - 86 umol/L HP CONVE RSION Comment: faxed to [phone], 011,15:43, by MONICA Carnitine Esterified 12 5 - 29 umol/L HP CO NVERSION Comment: faxed to [phone], 011,15:43, by MONICA [place] Kristen/Free Ratio 0.4 0.1 - 1.0 HP CONVERSION Comment: faxed to [phone], 06/20/2010,15:43 , by MONICA Performed at [place] [address] 8 Specimen (Source) Anatomical Collection Method Collection Time Re ceived Time Location / / Volume Laterality 06/19/2010 4:02 PM NURSING PROGRAM DIRECTOR Vane Zarate MD LAB_1 Performing Organization Address City/State/ZIP Code Phon e Number HP CONVERSION CK, Total (06/19/2010 4:02 PM NURSING PROGRAM DIRECTOR) athologist Signature Creatine Kinase 73 0 - 225 HP CONVERSION U/L Specimen (Source) Anatomical Collection Method Collection Time Re ceived Time Location / / Volume Laterality 06/19/2010 4:02 PM NURSING PROGRAM DIRECTOR Vane Zarate MD LAB_1 Performing Organization Address City/State/ZIP Code Phon e Number HP CONVERSION Lipase (06/19/2010 4:02 PM NURSING PROGRAM DIRECTOR) athologist Signature Lipase 63 5 - 70 U/L HP CONVERSION Specimen (Source) Anatomical Collection Method Collection Time Re ceived Time Location / / Volume Laterality 06/19/2010 4:02 PM NURSING PROGRAM DIRECTOR Vane Zarate MD LAB_1 Performing Organization Address City/State/ZIP Code Phon e Number HP CONVERSION Amylase (06/19/2010 4:02 PM NURSING PROGRAM DIRECTOR) athologist Signature Amylase Serum 43 25 - 115 HP CONVERSION U/L Specimen (Source) Anatomical Collection Method Collection Time Re ceived Time Location / / Volume Laterality 06/19/2010 4:02 PM NURSING PROGRAM DIRECTOR Vane Zarate MD LAB_1 Performing Organization Address City/State/ZIP Code Phon e Number HP CONVERSION ALT (SGPT) (06/19/2010 4:02 PM NURSING PROGRAM DIRECTOR) [facility] gist Method Time Signature Alanine 37 4 - 55 HP CONVERSION Aminotransferase U/L Specimen (Source) Anatomical Collection Method Collection Time Re ceived Time Location / / Volume Laterality 06/19/2010 4:02 PM NURSING PROGRAM DIRECTOR Vane Zarate MD LAB_1 Performing Organization Address City/[facility]/ZIP Code Phon e Number HP CONVERSION AST (06/19/2010 4:02 PM NURSING PROGRAM DIRECTOR) [facility] gist Method Time Signature Aspartate 20 0 - 45 HP CONVERSION Aminotransferase U/L Specimen (Source) Anatomical Collection Method Collection Time Re ceived Time Location / / Volume Laterality 06/19/2010 4:02 PM NURSING PROGRAM DIRECTOR Vane Zarate MD LAB_1 Performing Organization Address City/[facility]/ZIP Code Phon e Number HP CONVERSION (ABNORMAL) GT (Gamma GT) (06/19/2010 4:02 PM NURSING PROGRAM DIRECTOR) [facility] Method Time Signature Gamma-Glutamyl 182 (H) 1 - 48 U/L HP CONVERSION Transferase Specimen (Source) Anatomical Collection Method Collection Time Re ceived Time Location / / Volume Laterality 06/19/2010 4:02 PM NURSING PROGRAM DIRECTOR Vane Zarate MD LAB_1 Performing Organization Address [facility] Code Phon e Number HP CONVERSION Hemogram/Plts/Diff (06/19/2010 4:02 PM NURSING PROGRAM DIRECTOR) P athologist Signature White Blood Cell [...] / / Volume Laterality 06/19/2010 4:02 PM NURSING PROGRAM DIRECTOR Vane Zarate MD LAB_1 Performing Organization Address City/[facility]/ZIP Code Phon e Number HP CONVERSION (ABNORMAL) Valproic Acid (Depakene) (06/19/2010 4:02 PM NURSING PROGRAM DIRECTOR) [facility] gist Method Time Signature Date Last Dose 19jun2010 No normal HP CONVERSION Valproic Acid range Time Last Dose 1,000 No normal HP CONVERSION Valproic Acid range Valproic 136 (H) 50 - 100 HP CONVERSION Acid/Depakene ug/dL (Valp) Specimen (Source) Anatomical Collection Method Collection Time Re ceived Time Location / / Volume Laterality 06/19/2010 4:02 PM NURSING PROGRAM DIRECTOR Vane Zarate MD LAB_1 Performing Organization Address City/State/ZIP Code Phon e Number HP CONVERSION documented in this encounter Visit Diagnoses Not on filedocumented in this encounter Care Teams Raise Drill Operator Relationship Specialty Start Date End Date Antonio Jerez MD PCP - General 07/25/10 12/22/10 14[address] [facility] [place] [address] documented as of this encounter
--- OUTSIDE RECORDS SUMMARY | 2022-02-14 10:52 | XMS_ITS | Encounter Summary ---
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 Tobacco use disorder; [place] [address] [place], [place] Chest pain [phone] Social History Tobacco Use Types Packs/Day Years [...] 5' 10 (177.8 cm) Weight: 217 lb (07597 g) General: patient in NAD. Alert and [...] insurance , since he cannot afford it [id number]. Patient declined cardiac workup and EKG today. [...] unspecified documented in this encounter Care Teams Aircraft Engineer Relationship Specialty Start Date End Date Lilian Persaud DO PCP - General 12/23/10 05/16/12 [address] [place] [address] documented as of this encounter
--- OUTSIDE RECORDS SUMMARY | 2022-02-14 10:52 | XMS_ITS | Encounter Summary ---
:1970 Author Organization [facility] Address [address], [place] [address] Care Team Providers Name Role Phone Antonio Jerez MD Primary Care Provider Encounter Details Date Type Department Care Team Description 12/12/2009 PN Conversion Only SCIENTOLOGY CONVERSION Social History Tobacco Use Types Packs/Day Years Used Date Smoking Tobacco: Never Assessed Sex Assigned at Date Recorded Not on file documented as of this encounter Plan of Treatment Not on filedocumented as of this encounter Visit Diagnoses Not on filedocumented in this encounter Care Teams Life Skills Trainer Relationship Specialty Start Date End Date Antonio Jerez MD PCP - General 07/25/10 12/22/[address] [place] [address] documented as of this encounter
--- OUTSIDE RECORDS SUMMARY | 2022-02-14 10:52 | XMS_ITS | Encounter Summary ---
:1970 Author Organization [facility] Address [address] [place] [address] Care Team Providers Name Role Phone Antonio Jerez MD Primary Care Provider Reason for Visit Reason Comments RESULTS, TEST Encounter Details Date Type Department Care Team Description 11/27/2010 [facility] Lilian Persaud DO RESULTS, TEST [facility] [facility] [address] [place] [address] [place] [address] [phone] (Wo rk) Social History Tobacco Use Types Packs/Day Years Used Date Smoking Tobacco: Never Assessed Sex Assigned at Date Recorded Not on file documented as of this encounter Nursing Notes Keila Javier LPN - 11/27/2010 3:44 PM CDT Spoke with patient regarding above note from Provider. Pt. Agrees and will call if any other question or concerns.>AT Lilian Persaud DO - 11/27/2010 12:48 PM CDT Please make sure pt went to ER yesterday. Schedule him for 30 min ov next week to discuss DM and hospital fu. Thanks. documented in this encounter Plan of Treatment Not on filedocumented as of this encounter Visit Diagnoses Not on filedocumented in this encounter Care Teams Senior Bookkeeper Relationship Specialty Start Date End Date Antonio Jerez MD PCP - General 07/25/10 12/22/[address] [facility] [place] [address] documented as of this encounter
--- OUTSIDE RECORDS SUMMARY | 2022-02-14 10:52 | XMS_ITS | Encounter Summary ---
:1970 Author Organization [facility] Address [address] [address] Care Team Providers Name Role Phone Antonio Jerez MD Primary Care Provider Encounter Details Date Type Department Care Team Description 06/19/2010 PN Conversion Only [place] CONVERSION Arina Huff, [address] [place] [address] Social History Tobacco Use Types Packs/Day Years Used Date Smoking Tobacco: Never Assessed Sex Assigned at Date Recorded Not on file documented as of this encounter Plan of Treatment Not on filedocumented as of this encounter Visit Diagnoses Not on filedocumented in this encounter Care Teams Industrial Education Instructor Relationship Specialty Start Date End Date Antonio Jerez MD PCP - General 07/25/10 12/22/10 [address] [place] [id number] documented as of this encounter
--- OUTSIDE RECORDS SUMMARY | 2022-02-14 10:52 | XMS_ITS | Encounter Summary ---
:1970 Author Organization [facility] Address [address] [place] [address] Care Team Providers Name Role Phone Michel Daniel MD Primary Care Provider Encounter Details Date Type Department Care Team Description 03/17/2009 Office Visit [facility] Michel Daniel MD 14[address] [facility] . [address] [place] [address] [place] [address] [phone] (Wo rk) Social History Tobacco Use Types Packs/Day Years Used Date Smoking Tobacco: Never Assessed Sex Assigned at Date Recorded Not on file documented as of this encounter Last Filed Vital Signs Vital Sign Reading Time Taken Comments Blood Pressure 134/76 03/17/2009 12:46 PM TRUMPET TEACHER Pulse 88 03/17/2009 12:46 PM TRUMPET TEACHER Temperature - - Respiratory Rate - - Oxygen Saturation - - Inhaled Oxygen Concentration - - Weight 98.8 kg (217 lb 11.6 oz) 03/17/2009 12:46 PM C: 98.8kg TRUMPET TEACHER Height - - Body Mass Index 31.24 06/24/2008 12:32 PM TRUMPET TEACHER documented in this encounter Progress Notes Michel Daniel MD - 03/17/2009 12:01 AM CST Progress Notes signed by Michel Daniel MD at 03/19/09 0717 Author: Michel Daniel MD Service: (none) Author Type: Physician Filed: 08/15/10 1816 Note Time: 03/17/09 0001 Status: Signed Pediatric Clinical Nurse Specialist: Michel Daniel MD (Physician) NAME: SHARLENE VARNER MR#: [id number] ACCT: [id number] VISIT: [id number] DICTATING CLINICIAN: MICHEL DANIEL MD CONFIRM #: [id number] LOC: 1202 CLINIC PROGRESS NOTE DATE OF [...] Vane Zarate, who evidently will be leaving [facility], but he states that he intends to follow her privately into her private office. He was seen by Dr. Zarate on 03/10 and medicine was adjusted at that time and Risperdal was added. He states that he developed muscle spasms, was in the emergency room at [facility] over the weekend. Was started on Benadryl. Had medication exchange administrator the telephone on 03/14 when Stelazine, which [...] get back to him with above results. AAS:[id number] C: 03/17/09 15:06 CONFIRM #: [id number] PET TEACHER documented in this encounter Plan of Treatment Not on filedocumented as of this encounter Visit Diagnoses Not on filedocumented in this encounter Care Teams Comber Setter Relationship Specialty Start Date End Date Michel Daniel MD PCP - General 07/25/10 12/22/10 14[address] [facility] [place] [address] documented as of this encounter
--- OUTSIDE RECORDS SUMMARY | 2022-02-14 10:53 | XMS_ITS | Encounter Summary ---
:1970 Author Organization [email or web address] Address [address] [place] [address] Care Team Providers Name Role Phone Antonio Jerez MD Primary Care Provider Encounter Details Date Type Department Care Team Description 06/11/2008 Risk Assessment Analyst Only CONVERSION CONVERSION Vane Zarate MD [address] [place], [place] [address] (Wo rk) Social History [...] 1059 Note Time: 06/11/08 0001 Status: Signed Supervisor Cell Efficiency: Vane Zarate MD (Physician) patient did not appear for this appointment. he was seen in an urgent appointment yesterday; t withhis one might have been scheduled as a backup or in error. R AND GAS HELPER documented in this encounter Plan of Treatment Not on filedocumented as of this encounter Visit Diagnoses Not on filedocumented in this encounter Care Teams Alkylation Operator Relationship Specialty Start Date End Date Antonio Jerez MD PCP - General 07/25/10 12/22/10 [address] [place] [address] documented as of this encounter
--- OUTSIDE RECORDS SUMMARY | 2022-02-14 10:53 | XMS_ITS | Encounter Summary ---
:1970 Author Organization [facility] Address [address], [place] [address] Care Team Providers Name Role Phone Antonio Jerez MD Primary Care Provider Encounter Details Date Type Department Care Team Description 08/11/2006 Bicycle Ii Assembler Only CONVERSION Kya Hewitt RN Social History [...] 1851 Note Time: 08/11/06 0001 Status: Signed Arch Support Maker: Niko Barrios prior auth for Zyprexa 5 mg approved through 08/11/07 #[id number] Pharmacy called [facility] documented in this encounter Plan of Treatment Not on filedocumented as of this encounter Visit Diagnoses Not on filedocumented in this encounter Care Teams Nurses Director Relationship Specialty Start Date End Date Antonio Jerez MD PCP - General 07/25/10 12/22/10 [address] [facility] [address] documented as of this encounter
--- OUTSIDE RECORDS SUMMARY | 2022-02-14 10:53 | XMS_ITS | Encounter Summary ---
:1970 Author Organization [facility] Address [address] [place] [address] Care Team Providers Name Role Phone Antonio Jerez MD Primary Care Provider Encounter Details Date Type Department Care Team Description 03/06/2009 PN Conversion Only Vane Cox MD [address] [place] [address] [address] [place] [address] Social History Tobacco Use Types Packs/Day Years Used Date Smoking Tobacco: Never Assessed Sex Assigned at Date Recorded Not on file documented as of this encounter Plan of Treatment Not on filedocumented as of this encounter Procedures Procedure Name Priority Date/Time Associated Diagnosis Comme nts AMYLASE Routine 03/06/2009 7:50 PM Results f or this ELECTRICAL MECHANIC procedure are i n the results section. GT (GAMMA GT) Routine 03/06/2009 7:50 PM Results for this ELECTRICAL MECHANIC procedure are i n the results section. ALT (SGPT) Routine 03/06/2009 7:50 PM Results f or this ELECTRICAL MECHANIC procedure are i n the results section. AST Routine 03/06/2009 7:50 PM Results f or this ELECTRICAL MECHANIC procedure are i n the results section. ALKALINE Routine 03/06/2009 7:50 PM Results f or this PHOSPHATASE, TOTAL ELECTRICAL MECHANIC procedure are in the results section. documented in this encounter Results (ABNORMAL) GT (Gamma GT) (03/06/2009 7:50 PM ELECTRICAL MECHANIC) [facility] Method Time Signature Gamma-Glutamyl 169 (H) 1 - 48 U/L HP CONVERSION Transferase Specimen (Source) Anatomical Collection Method Collection Time Re ceived Time Location / / Volume Laterality 03/06/2009 7:50 PM ELECTRICAL MECHANIC Vane Zarate MD LAB_1 Performing Organization Address City/[facility]/ZIP Code Phon e Number HP CONVERSION (ABNORMAL) AST (03/06/2009 7:50 PM ELECTRICAL MECHANIC) [facility] gist Method Time Signature Aspartate 62 (H) 0 - 45 HP CONVERSION Aminotransferase U/L Specimen (Source) Anatomical Collection Method Collection Time Re ceived Time Location / / Volume Laterality 03/06/2009 7:50 PM ELECTRICAL MECHANIC Vane Zarate MD LAB_1 Performing Organization Address City/[facility]/ZIP Code Phon e Number HP CONVERSION Amylase (03/06/2009 7:50 PM ELECTRICAL MECHANIC) athologist Signature Amylase Serum 58 25 - 115 HP CONVERSION U/L Specimen (Source) Anatomical Collection Method Collection Time Re ceived Time Location / / Volume Laterality 03/06/2009 7:50 PM ELECTRICAL MECHANIC Vane Zarate MD LAB_1 Performing Organization Address City/[facility]/ZIP Code Phon e Number HP CONVERSION (ABNORMAL) ALT (SGPT) (03/06/2009 7:50 PM ELECTRICAL MECHANIC) [facility] gist Method Time Signature Alanine 58 (H) 4 - 55 HP CONVERSION Aminotransferase U/L Specimen (Source) Anatomical Collection Method Collection Time Re ceived Time Location / / Volume Laterality 03/06/2009 7:50 PM ELECTRICAL MECHANIC Vane Zarate MD LAB_1 Performing Organization Address City/[facility] Code Phon e Number HP CONVERSION Alkaline Phosphatase, Total (03/06/2009 7:50 PM ELECTRICAL MECHANIC) athologist Signature Alk Phos 63 25 - 135 U/L HP CONVERSION Specimen (Source) Anatomical Collection Method Collection Time Re ceived Time Location / / Volume Laterality 03/06/2009 7:50 PM ELECTRICAL MECHANIC Vane Zarate MD LAB_1 Performing Organization Address City/[facility] Code Phon e Number HP CONVERSION documented in this encounter Visit Diagnoses Not on filedocumented in this encounter Care Teams Event Host Relationship Specialty Start Date End Date Antonio Jerez MD PCP - General 07/25/10 12/22/10 [address] [facility] [place] [address] documented as of this encounter
--- OUTSIDE RECORDS SUMMARY | 2022-02-14 10:53 | XMS_ITS | Encounter Summary ---
:1970 Author Organization [facility] Address [address] [place] [address] Care Team Providers Name Role Phone Antonio Jerez MD Primary Care Provider Encounter Details Date Type Department Care Team Description 06/24/2008 Office Visit [facility] Antonio Jerez MD [address] [facility] . [address] [place] [address] [place] [address] (Wo rk) Social History Tobacco Use Types Packs/Day Years Used Date Smoking Tobacco: Never Assessed Sex Assigned at Date Recorded Not on file documented as of this encounter Plan of Treatment Not on filedocumented as of this encounter Visit Diagnoses Not on filedocumented in this encounter Care Teams Paint Tester Relationship Specialty Start Date End Date Antonio Jreez MD PCP - General 07/25/10 12/22/10 [address] [place] [address] documented as of this encounter
--- OUTSIDE RECORDS SUMMARY | 2022-02-14 10:53 | XMS_ITS | Encounter Summary ---
:1970 [address] [facility] Address [address] [place] [address] Care Team Providers Name Role Phone Michel Daniel MD Primary Care Provider Reason for Visit Reason Comments Other Encounter Details Date Type Department Care Team Description 03/20/2007 Telephone [facility], Alphonso Belcher RN Other [address] [facility] [place], [place] [address] Social History Tobacco Use Types Packs/Day Years Used Date Smoking Tobacco: Never Assessed Sex Assigned at Date Recorded Not on file documented as of this encounter Progress Notes Herlinda Lucio HUC - 03/20/2007 8:44 AM CST Phone Note filed by Herlinda Akbar MA at 08/12/10919 Author: Herlinda Akbar MA Service: (none) Author Type: (none) Filed: 08/12/10919 Note Time: 03/20/07843 Status: Signed Drop Hammer Set Up Operator: Niko Conversion Medication Issue/Refill Caller Name/Relationship:simone Primary Burr Grinder:makenzie Comment/Symptom:pt is wondering if he should get more beta blockers Pharmacy [facility] & Phone #[facility] Street or City:[place] Drug Name:metoprolol Strength:50mg Dose/Route/Freq:1/2 tab 2x daily Manager Project:simone Best call back number:[phone] Is it OK to leave a confidential message on this voicemail?yes Created on 20Mar2007 8:44am by HERLINDA AKBAR On 20Mar2007 9:39am MICHEL DANIEL wrote: There does not appear to be a reason to be on beta blockers Acknowledged by MICHEL DANIEL on 9:39am On 20Mar2007 10:38am ALPHONSO QUESADA wrote: info given to pt as above. Acknowledged by ALPHONSO QUESADA on 10:38am ESCENT COUNSELOR documented in this encounter Plan of Treatment Not on filedocumented as of this encounter Visit Diagnoses Not on filedocumented in this encounter Care Teams Plant Operations Manager Relationship Specialty Start Date End Date Michel Daniel MD PCP - General 07/25/10 12/22/10 [address] [place] [address] documented as of this encounter
--- OUTSIDE RECORDS SUMMARY | 2022-02-14 10:53 | XMS_ITS | Encounter Summary ---
:1970 Author Organization [facility] Address [address], [place] [address] Care Team Providers Name Role Phone Antonio Jerez MD Primary Care Provider Encounter Details Date Type Department Care Team Description 08/04/2007 PN Conversion Only [facility] Kevin [place], [address] [employer] [place] [address] [facility] [address] [place] [address] Social History Tobacco Use Types Packs/Day Years Used Date Smoking Tobacco: Never Assessed Sex Assigned at Date Recorded Not on file documented as of this encounter Plan of Treatment Not on filedocumented as of this encounter Procedures Procedure Name Priority Date/Time Associated Diagnosis Comme nts VALPROIC ACID Routine 08/04/2007 8:30 AM Results for this (DEPAKENE) CDT procedure are i n the results section. ALT (SGPT) Routine 08/04/2007 8:30 AM Results f or this CDT procedure are i n the results section. documented in this encounter Results (ABNORMAL) ALT (SGPT) (08/04/2007 8:30 AM CDT) [employer] gist Method Time Signature Alanine 73 (H) 4 - 55 HP CONVERSION Aminotransferase U/L Specimen (Source) Anatomical Collection Method Collection Time Re ceived Time Location / / Volume Laterality 08/04/2007 8:30 AM CDT Kevin Hanson MD LAB_1 Performing Organization Address City/State/ZIP Code Phon e Number HP CONVERSION (ABNORMAL) Valproic Acid (Depakene) (08/04/2007 8:30 AM CDT) Analysis Performed At Path logist Time Signature Time Last Dose 2,100 No normal HP CONVERSION Valproic Acid range Date Last Dose [id number] No normal HP CONVERSION Valproic Acid range Valproic 123 (H) 50 - 100 HP CONVERSION Acid/Depakene ug/mL (Valp) Specimen (Source) Anatomical Collection Method Collection Time Re ceived Time Location / / Volume Laterality 08/04/2007 8:30 AM CDT Kevin Hanson MD LAB_1 Performing Organization Address City/State/ZIP Code Phon e Number HP CONVERSION documented in this encounter Visit Diagnoses Not on filedocumented in this encounter Care Teams Paginator Relationship Specialty Start Date End Date Antonio Jerez MD PCP - General 07/25/10 12/22/10 [facility] [place] [address] documented as of this encounter
--- OUTSIDE RECORDS SUMMARY | 2022-02-14 10:53 | XMS_ITS | Encounter Summary ---
:1970 Author Organization [facility] Address [address] [place] [address] Care Team Providers Name Role Phone Antonio Jerez MD Primary Care Provider Encounter Details Date Type Department Care Team Description 01/16/2009 PN Conversion Only CONSERVATION ENFORCEMENT OFFICER 3850 CONV Vane Zarate MD [address] [place] [address] [address] [place] [address] Social History Tobacco Use Types Packs/Day Years [...] (01/16/2009 11:28 AM CDT) [facility] Time Signature Time Last Dose 2,230 No normal HP CONVERSION Valproic Acid range Date Last Dose 93EBW28 No normal HP CONVERSION Valproic Acid range Valproic 105 (H) 50 - 100 HP CONVERSION Acid/Depakene ug/mL (Valp) Specimen (Source) Anatomical Collection Method Collection Time Re ceived Time Location / / Volume Laterality 01/16/2009 11:28 AM CDT Vane Zarate MD LAB_1 Performing Organization Address City/State/ZIP Code Phon e Number HP CONVERSION (ABNORMAL) GT (Gamma GT) (01/16/2009 11:28 AM CDT) [facility] Method Time Signature Gamma-Glutamyl 267 (H) 1 - 48 U/L HP CONVERSION Transferase Specimen (Source) Anatomical Collection Method Collection Time Re ceived Time Location / / Volume Laterality 01/16/2009 11:28 AM CDT Vane Zarate MD LAB_1 Performing Organization Address City/[facility]/ZIP Code Phon e Number HP CONVERSION AST (01/16/2009 11:28 AM CDT) [facility] Method Time Signature Aspartate 34 0 - 45 HP CONVERSION Aminotransferase U/L Specimen (Source) Anatomical Collection Method Collection Time Re ceived Time Location / / Volume Laterality 01/16/2009 11:28 AM CDT Vane Zarate MD LAB_1 Performing Organization Address City/[facility]/ZIP Code Phon e Number HP CONVERSION Amylase (01/16/2009 11:28 AM CDT) athologist Signature Amylase Serum 37 25 - 115 HP CONVERSION U/L Specimen (Source) Anatomical Collection Method Collection Time Re ceived Time Location / / Volume Laterality 01/16/2009 11:28 AM CDT Vane Zarate MD LAB_1 Performing Organization Address City/[facility]/ZIP Code Phon e Number HP CONVERSION (ABNORMAL) ALT (SGPT) (01/16/2009 11:28 AM CDT) [facility] gist Method Time Signature Alanine 57 (H) [...] Performing Organization Address City/[facility] Code Phon e Number HP [...] - HP CONVERSION Hemoglobin Conc 36.5 gm/dL [place] RDW 11.2 11.0 - HP CONVERSION 15.0 [...] on filedocumented in this encounter Care Teams Java Technical Manager Relationship Specialty Start Date End Date Antonio Jerez MD PCP - General 07/25/10 12/22/10 [address] [facility] [place] [address] documented as of this encounter
--- OUTSIDE RECORDS SUMMARY | 2022-02-14 10:53 | XMS_ITS | Encounter Summary ---
:1970 Author Organization [facility] Address [address] [address] Care Team Providers Name Role Phone Antonio Jerez MD Primary Care Provider Encounter Details Date Type Department Care Team Description 02/07/2007 PN Conversion Only [place] CONVERSKevin Mcne[place], [address] [place] [address] [facility] [address] [place] [address] Social History Tobacco Use Types [...] Results ALT (SGPT) (02/07/2007 8:22 AM CDT) [facility] gist Method Time Signature Alanine 44 4 [...] CONVERSION Valproic Acid range Date Last Dose [id number] No normal HP CONVERSION Valproic Acid range [...] filedocumented in this encounter Care Teams Hot Mill Shearer Relationship Specialty Start Date End Date Antonio Jerez MD PCP - General 07/25/10 12/22/10 [facility] [place] [address] documented as of this encounter
--- OUTSIDE RECORDS SUMMARY | 2022-02-14 10:53 | XMS_ITS | Encounter Summary ---
:1970 [facility] Address [address], [place] [address] Care Team Providers Name Role Phone Antonio Jerez MD Primary Care Provider Encounter Details Date Type Department Care Team Description 02/24/2009 Thermodynamics Professor Only CONVERSION CONVERSION Vane Zarate MD [address] [place], [place] [address] (Wo rk) Social History Tobacco Use Types Packs/Day Years Used Date Smoking Tobacco: Never Assessed Sex Assigned at Date Recorded Not on file documented as of this encounter Progress Notes Vane Zarate MD - 02/24/2009 12:01 AM CST Progress Notes signed by Vane Zarate MD at 02/24/09 1102 Author: Vane Zarate MD Service: (none) Author Type: Physician Filed: 08/15/10 9586 Note Time: 02/24/09 0001 Status: Signed Hardware Press Operator: Vane Zarate MD (Physician) Please accept this note as documentation that Mr. Krishnamurthy will need to miss work until March 03 owing to medication adjustments. Thank you for your attention. UST AND MUFFLER REPAIRER documented in this encounter Plan of Treatment Not on filedocumented as of this encounter Visit Diagnoses Not on filedocumented in this encounter Care Teams Inflated Pad Buffer Relationship Specialty Start Date End Date Antonio Jerez MD PCP - General 07/25/10 12/22/10 [address] [place] [address] documented as of this encounter
--- OUTSIDE RECORDS SUMMARY | 2022-02-14 10:53 | XMS_ITS | Encounter Summary ---
:1970 Author Organization [facility] Address [address] [address] Care Team Providers Name Role Phone Antonio Jerez MD Primary Care Provider Encounter Details Date Type Department Care Team Description 06/11/2008 PN Conversion Only [place] [address] [place] [address] [address] [place] [address] Social History Tobacco Use Types Packs/Day Years Used Date Smoking Tobacco: Never Assessed Sex Assigned at Date Recorded Not on file documented as of this encounter Plan of Treatment Not on filedocumented as of this encounter Procedures Procedure Name Priority Date/Time Associated Comments Diagnosis ELECTROLYTES (NA, K, Routine 06/11/2008 4:59 PM R esults for this CL, BICARB) ADMINISTRATION PHYSICIAN procedure are i n the results section. COMPLETE BLOOD Routine 06/11/2008 4:59 PM Results for this COUNT-W/DIFF ADMINISTRATION PHYSICIAN procedure are i n the results section. AMYLASE Routine 06/11/2008 4:59 PM Results f or this ADMINISTRATION PHYSICIAN procedure are i n the results section. VALPROIC ACID Routine 06/11/2008 4:59 PM Results for this (DEPAKENE) ADMINISTRATION PHYSICIAN procedure are i n the results section. ALT (SGPT) Routine 06/11/2008 4:59 PM Results f or this ADMINISTRATION PHYSICIAN procedure are i n the results section. AST Routine 06/11/2008 4:59 PM Results f or this ADMINISTRATION PHYSICIAN procedure are i n the results section. ALKALINE PHOSPHATASE, Routine 06/11/2008 4:59 PM Results for this TOTAL ADMINISTRATION PHYSICIAN procedure are i n the results section. documented in this encounter Results (ABNORMAL) Complete Blood Count-W/Diff (06/11/2008 4:59 PM ADMINISTRATION PHYSICIAN) [facility] Method Time Signature White Blood Cell [...] - HP CONVERSION Hemoglobin Conc 36.5 gm/dL [place] RDW 11.0 11.0 - HP CONVERSION 15.0 [...] / / Volume Laterality 06/11/2008 4:59 PM ADMINISTRATION PHYSICIAN Vane Zarate MD LAB_1 Performing Organization Address City/State/ZIP Code Phon e Number HP CONVERSION Alkaline Phosphatase, Total (06/11/2008 4:59 PM ADMINISTRATION PHYSICIAN) athologist Signature Alk Phos 55 25 - 135 U/L HP CONVERSION Specimen (Source) Anatomical Collection Method Collection Time Re ceived Time Location / / Volume Laterality 06/11/2008 4:59 PM ADMINISTRATION PHYSICIAN Vane Zarate MD LAB_1 Performing Organization Address City/State/ZIP Code Phon e Number HP CONVERSION ALT (SGPT) (06/11/2008 4:59 PM ADMINISTRATION PHYSICIAN) [facility] Method Time Signature Alanine 40 4 - 55 HP CONVERSION Aminotransferase U/L Specimen (Source) Anatomical Collection Method Collection Time Re ceived Time Location / / Volume Laterality 06/11/2008 4:59 PM ADMINISTRATION PHYSICIAN Vane Zarate MD LAB_1 Performing Organization Address City/[facility]/ZIP Code Phon e Number HP CONVERSION Amylase (06/11/2008 4:59 PM ADMINISTRATION PHYSICIAN) P athologist Signature Amylase Serum 53 25 - 115 HP CONVERSION U/L Specimen (Source) Anatomical Collection Method Collection Time Re ceived Time Location / / Volume Laterality 06/11/2008 4:59 PM ADMINISTRATION PHYSICIAN Vane Zarate MD LAB_1 Performing Organization Address City/[facility]/ZIP Code Phon e Number HP CONVERSION AST (06/11/2008 4:59 PM ADMINISTRATION PHYSICIAN) Patholo gist Method Time Signature Aspartate 45 0 - 45 HP CONVERSION Aminotransferase U/L Specimen (Source) Anatomical Collection Method Collection Time Re ceived Time Location / / Volume Laterality 06/11/2008 4:59 PM ADMINISTRATION PHYSICIAN Vane Zarate MD LAB_1 Performing Organization Address City/[facility]/ZIP Code Phon e Number HP CONVERSION Electrolytes (NA, K, CL, Bicarb) (06/11/2008 4:59 PM ADMINISTRATION PHYSICIAN) P athologist Signature Sodium 139 137 - 147 HP CONVERSION mEq/L Potassium 4.3 3.5 - 5.2 HP CONVERSION mEq/L Chloride 104 98 - 110 HP CONVERSION mEq/L Bicarbonate 26 23 - 33 HP CONVERSION mmol/L Specimen (Source) Anatomical Collection Method Collection Time Re ceived Time Location / / Volume Laterality 06/11/2008 4:59 PM ADMINISTRATION PHYSICIAN Vane Zarate MD LAB_1 Performing Organization Address City/[facility] Phon e Number HP CONVERSION Valproic Acid (Depakene) (06/11/2008 4:59 PM ADMINISTRATION PHYSICIAN) Analysis Performed At Patho logist Time Signature Time Last Dose 0900 No normal HP CONVERSION Valproic Acid range Date Last Dose 73OYI65 No normal HP CONVERSION Valproic Acid range Valproic 86 50 - 100 HP CONVERSION Acid/Depakene ug/mL (Valp) Specimen (Source) Anatomical Collection Method Collection Time Re ceived Time Location / / Volume Laterality 06/11/2008 4:59 PM ADMINISTRATION PHYSICIAN Vane Zarate MD LAB_1 Performing Organization Address City/State/ZIP Code Phon e Number HP CONVERSION documented in this encounter Visit Diagnoses Not on filedocumented in this encounter Care Teams Cryptanalyst Relationship Specialty Start Date End Date Antonio Jerez MD PCP - General 07/25/10 12/22/10 [address] [place] [place] [address] documented as of this encounter
--- OUTSIDE RECORDS SUMMARY | 2022-02-14 10:53 | XMS_ITS | Encounter Summary ---
:1970 Author Organization [facility] Address [address] [place] [address] Care Team Providers Name Role Phone Michel Daniel MD Primary Care Provider Encounter Details Date Type Department Care Team Description 03/23/2006 Procedure Visit [facility] Michel Daniel, [address] [facility] [place] [address] [address] [facility] [phone] [place], [place] [address] (Wo rk) Social History Tobacco [...] 1556 Note Time: 03/23/06 0001 Status: Signed Seafood And Service Meat Manager: Michel Daniel MD (Physician) NAME: SHARLENE VARNER MR#: [id number] ACCT: [id number] VISIT: [id number] DICTATING CLINICIAN: MICHEL DANIEL MD JOB: [id number] LOC: 1202 CLINIC PROGRESS NOTE DATE OF [...] to him with these results. ASSESSMENT: PLAN: [id number] C: 03/24/06 08:07 DOCUMENT: [id number] OSOFT DYNAMICS DEVELOPER documented in this encounter Plan of Treatment Not on filedocumented as of this encounter Visit Diagnoses Not on filedocumented in this encounter Care Teams Music Therapy Specialist Relationship Specialty Start Date End Date Michel Daniel MD PCP - General 07/25/10 12/22/10 [address] [place] [address] documented as of this encounter
--- OUTSIDE RECORDS SUMMARY | 2022-02-14 10:53 | XMS_ITS | Encounter Summary ---
:1970 Author Organization [facility] Address [address], [place] [address] Care Team Providers Name Role Phone Antonio Jerez MD Primary Care Provider Encounter Details Date Type Department Care Team Description 07/30/2008 Sewing Techniques Demonstrator Only CONVERSION CONVERSION Vane Zarate MD [address] [place], [place] [address] (Wo rk) Social History [...] 1219 Note Time: 07/30/08 0001 Status: Signed Turbo Generator Oiler: Vane Zarate MD (Physician) Please accept this note as documentation that I am recommending that Mr. Krishnamurthy return to work with no restrictions. Thank you very much. documented in this encounter Plan of Treatment Not on filedocumented as of this encounter Visit Diagnoses Not on filedocumented in this encounter Care Teams Multineedle Shirrer Relationship Specialty Start Date End Date Antonio Jerez MD PCP - General 07/25/10 12/22/10 [address] [place] [address] documented as of this encounter
--- OUTSIDE RECORDS SUMMARY | 2022-02-14 10:53 | XMS_ITS | Encounter Summary ---
:1970 Author [facility] Address [address] [address] Care Team Providers Name Role Phone Antonio Jerez MD Primary Care Provider Encounter Details Date Type Department Care Team Description 01/17/2009 Scalper Operator Only CONVERSION CONVERSION Vane Zarate MD [address] [place], [place] [address] (Wo rk) Social History [...] 1640 Note Time: 01/17/09 0001 Status: Signed Laborer Powerhouse: Vane Zarate MD (Physician) blood work shows elevated ALT and GGT, and depakote level of 105. Advised patient we may need to look at different mood stabilizer. documented in this encounter Plan of Treatment Not on filedocumented as of this encounter Visit Diagnoses Not on filedocumented in this encounter Care Teams Teacher Of The Emotionally Disturbed Relationship Specialty Start Date End Date Antonio Jerez MD PCP - General 07/25/10 12/22/10 [address] [place] [address] documented as of this encounter
--- OUTSIDE RECORDS SUMMARY | 2022-02-14 10:53 | XMS_ITS | Encounter Summary ---
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 Note written per his request. time spent: 20 minutes return visit: Two weeks *SH~INEZ~dena documented in this encounter Plan of Treatment Not on filedocumented as of this encounter Visit Diagnoses Not on filedocumented in this encounter Care Teams Enterprise Applications Manager Relationship Specialty Start Date End Date Antonio Jerez MD PCP - General 07/25/10 12/22/10 [facility]5 [place] [address] documented as of this encounter
--- OUTSIDE RECORDS SUMMARY | 2022-02-14 10:53 | XMS_ITS | Encounter Summary ---
:1970 Author Organization [facility] Address [address], [place] [address] Care Team Providers Name Role Phone Antonio Jerez MD Primary Care Provider Encounter Details Date Type Department Care Team Description 03/23/2006 PN Conversion Only CAROLINE CONVERSION Antonio Jerez, [address] [place] [address] [place] [address] (Wo rk) Social History Tobacco Use Types Packs/Day Years Used Date Smoking Tobacco: Never Assessed Sex Assigned at Date Recorded Not on file documented as of this encounter Plan of Treatment Not on filedocumented as of this encounter Visit Diagnoses Not on filedocumented in this encounter Care Teams Clearance Diver Relationship Specialty Start Date End Date Antonio Jerez MD PCP - General 07/25/10 12/22/10 [address] [place] [address] documented as of this encounter
--- OUTSIDE RECORDS SUMMARY | 2022-02-14 10:53 | XMS_ITS | Encounter Summary ---
:1970 Author Organization [facility] Address [address] [address] Care Team Providers Name Role Phone Antonio Jerez MD Primary Care Provider Encounter Details Date Type Department Care Team Description 08/04/2006 PN Conversion Only Kevin Blackburn, [address] [place] [address] [facility] [address] [place] [address] Social History Tobacco Use Types [...] (ABNORMAL) ALT (SGPT) (08/04/2006 8:30 AM CDT) [facility] gist Method Time Signature Alanine 59 [...] CONVERSION Valproic Acid range Date Last Dose [id number] No normal HP CONVERSION Valproic Acid range [...] on filedocumented in this encounter Care Teams Band Maker Relationship Specialty Start Date End Date Antonio Jerez MD PCP - General 07/25/10 12/22/10 [facility]5 [facility] [place] [address] documented as of this encounter
--- OUTSIDE RECORDS SUMMARY | 2022-02-14 10:53 | XMS_ITS | Encounter Summary ---
:1970 Author [facility] Address [address] [address] Care Team Providers Name Role Phone Antonio Jerez MD Primary Care Provider Encounter Details Date Type Department Care Team Description 02/24/2007 Construction Electrician Only CONVERSION Kya Hewitt RN Social History [...] 2249 Note Time: 02/24/07 0001 Status: Signed Signs And Displays Salesperson: Niko Barrios prior auth for [facility] approved #[id number] for as long as pt stays on plan-pharmacy called [employer] [employer] documented in this encounter Plan of Treatment Not on filedocumented as of this encounter Visit Diagnoses Not on filedocumented in this encounter Care Teams Button Sewer Relationship Specialty Start Date End Date Antonio Jerez MD PCP - General 07/25/10 12/22/10 [address] [facility] [place] [address] documented as of this encounter
--- OUTSIDE RECORDS SUMMARY | 2022-02-14 10:53 | XMS_ITS | Encounter Summary ---
:1970 Author Organization [facility] Address [address], [place] [address] Care Team Providers Name Role Phone Antonio Jerez MD Primary Care Provider Encounter Details Date Type Department Care Team Description 06/13/2008 Recording Clerk Only CONVERSION CONVERSION Vane Zarate MD [address] [place], [place] [address] (Wo rk) Social History Tobacco Use Types Packs/Day Years Used Date Smoking Tobacco: Never Assessed Sex Assigned at Date Recorded Not on file documented as of this encounter Progress Notes Vane Zarate MD - 06/13/2008 12:01 AM CST Progress Notes signed by Vane Zarate MD at 06/13/08 1201 Author: Vane Zarate MD Service: (none) Author Type: Physician Filed: 08/15/10 1104 Note Time: 06/13/08 0001 Status: Signed Wash Crew Person: Vane Zarate MD (Physician) Addendum: Patient's inspecting and testing lead hand, Radha, accompanied him and understood all recommendations and safety related planning. [facility] documented in this encounter Plan of Treatment Not on filedocumented as of this encounter Visit Diagnoses Not on filedocumented in this encounter Care Teams Commercial Lines Sales Executive Relationship Specialty Start Date End Date Antonio Jerez MD PCP - General 07/25/10 12/22/10 [address] [place] [address] documented as of this encounter
--- OUTSIDE RECORDS SUMMARY | 2022-02-14 10:53 | XMS_ITS | Encounter Summary ---
:1970 Author Organization [employer] [employer] Address [address] [address] Care Team Providers Name Role Phone Antonio Jerez MD Primary Care Provider Encounter Details Date Type Department Care Team Description 07/03/2008 Roll Tender Only CONVERSION CONVERSION Vane Zarate MD [address] [place], [place] [address] (Wo rk) Social History [...] 1137 Note Time: 07/03/08 0001 Status: Signed Pilot Plant Supervisor: Vane Zarate MD (Physician) Please accept this note as documentation that I saw Mr. Krishnamurthy today and he he appears to be restored to a euthymic state and also appears safe to drive. Thank you very much. documented in this encounter Plan of Treatment Not on filedocumented as of this encounter Visit Diagnoses Not on filedocumented in this encounter Care Teams Paraffin Plant Operator Relationship Specialty Start Date End Date Antonio Jerez MD PCP - General 07/25/10 12/22/10 [address] [place] [id number] documented as of this encounter
--- OUTSIDE RECORDS SUMMARY | 2022-02-14 10:53 | XMS_ITS | Encounter Summary ---
:1970 Author [facility] Address [address] [address] Care Team Providers Name Role Phone Antonio Jerez MD Primary Care Provider Encounter Details Date Type Department Care Team Description 02/28/2007 PN Conversion Only CAROLINE CONVERSION Antonio Jerez, [address] [place] [address] [place] [address] (Wo rk) Social History Tobacco Use Types Packs/Day Years Used Date Smoking Tobacco: Never Assessed Sex Assigned at Date Recorded Not on file documented as of this encounter Plan of Treatment Not on filedocumented as of this encounter Procedures Procedure Name Priority Date/Time Associated Comments Diagnosis THYROID STIMULATING Routine 02/28/2007 2:40 PM Re sults for this HORMONE CALCULUS TEACHER procedure are i n the results section. documented in this encounter Results Thyroid Stimulating Hormone (02/28/2007 2:40 PM CALCULUS TEACHER) P athologist Signature Thyroid 1.50 0.20 - HP CONVERSION Stimulating 4.50 Hormone uIU/mL Specimen (Source) Anatomical Collection Method Collection Time Re ceived Time Location / / Volume Laterality 02/28/2007 2:40 PM CALCULUS TEACHER Antonio Jerez MD LAB_1 Performing Organization Address City/State/ZIP Code Phon e Number HP CONVERSION documented in this encounter Visit Diagnoses Not on filedocumented in this encounter Care Teams Shipmaster Relationship Specialty Start Date End Date Antonio Jerez MD PCP - General 07/25/10 12/22/[address] [place] [address] documented as of this encounter
--- OUTSIDE RECORDS SUMMARY | 2022-02-14 10:54 | XMS_ITS | Encounter Summary ---
:1970 Author Organization [facility] Address [address], [place] [address] Care Team Providers Name Role Phone Antonio Jerez MD Primary Care Provider Encounter Details Date Type Department Care Team Description 12/12/2000 PN Conversion Only MORMON CONVERSION Kvng Jerez MD [address] [place], [place] [address] (Wo rk) Social History Tobacco Use Types Packs/Day Years Used Date Smoking Tobacco: Never Assessed Sex Assigned at Date Recorded Not on file documented as of this encounter Plan of Treatment Not on filedocumented as of this encounter Visit Diagnoses Not on filedocumented in this encounter Care Teams Consultant Education Relationship Specialty Start Date End Date Antonio Jerez MD PCP - General 07/25/10 12/22/10 [address] [place] [address] documented as of this encounter
--- OUTSIDE RECORDS SUMMARY | 2022-02-14 10:54 | XMS_ITS | Encounter Summary ---
:1970 Author Organization [facility] Address [address] [place] [address] Care Team Providers Name Role Phone Antonio Jerez MD Primary Care Provider Encounter Details Date Type Department Care Team Description 10/23/2004 Procedure Visit [facility] Armida Mtz MD [address] [facility] . [address] [place] [address] [address] [phone] [place] [address] Social History Tobacco Use Types Packs/Day Years [...] 08/14/10 0549 Note Time: 10/23/042018 Status: Signed Payroll Administrative Assistant: Armida Mtz MD (Physician) NAME: SHARLENE VARNER MR: [id number] ACCT: [id number] VISIT: [id number] DICTATING CLINICIAN: ARMIDA MTZ MD JOB: [id number] CLINIC PROGRESS NOTE DATE OF VISIT: 10/23/2004 SUBJECTIVE: : 1970. [facility]: [id number]. The patient is here for skin tags [...] 1. Skin tags. 2. Venereal warts. PLAN: REANNA:[id number] C: 10/24/04 17:27 DOCUMENT: [id number] documented in this encounter Plan of Treatment Not on filedocumented as of this encounter Visit Diagnoses Not on filedocumented in this encounter Care Teams Greenhouse Manager Relationship Specialty Start Date End Date Antonio Jerez MD PCP - General 07/25/10 12/22/10 [facility]5 [place] [address] documented as of this encounter
--- OUTSIDE RECORDS SUMMARY | 2022-02-14 10:54 | XMS_ITS | Encounter Summary ---
:1970 Author Organization [facility] Address [address] [place] [address] Care Team Providers Name Role Phone Michel Jerez MD Primary Care Provider Encounter Details Date Type Department Care Team Description 10/13/2005 Office Visit [facility] Michel Jerez MD [address] [facility] . [address] [place] [address] [place] [address] [phone] (Wo rk) Social History Tobacco Use Types Packs/Day Years Used Date Smoking Tobacco: Never Assessed Sex Assigned at Date Recorded Not on file documented as of this encounter Last Filed Vital Signs Vital Sign Reading Time Taken Comments Blood Pressure 134/66 10/13/2005 11:04 AM CDT Pulse 84 10/13/2005 11:04 AM CDT Temperature - - Respiratory Rate - - Oxygen Saturation - - Inhaled Oxygen Concentration - - Weight 106.2 kg (234 lb 1.4 oz) 10/13/2005 11:04 AM C: 106.2kg CDT Height - - Body Mass Index - - documented in this encounter Progress Notes Michel Jerez MD - 10/13/2005 12:01 AM CDT Progress Notes signed by Michel Jerez MD at 10/18/05 0652 Author: Michel Jerez MD Service: (none) Author Type: Physician Filed: 08/14/10 1249 Note Time: 10/13/05 0001 Status: Signed Purification Supervisor: Michel Jerez MD (Physician) NAME: SHARLENE VARNER MR: [id number] ACCT: [id number] VISIT: [id number] DICTATING CLINICIAN: MICHEL JEREZ MD JOB: [id number] CLINIC PROGRESS NOTE DATE OF VISIT: 10/13/2005 SUBJECTIVE: : 1970. Julius is a 35-year-old male who was in today to follow up recent blood sugar tests. Julius has a history of bipolar disorder. He is on Depakote 500 mg two tablets twice a day and Zyprexa 5 mg 1-2 tablets twice a day. It was noted that he had a random blood sugar here that was markedly elevated. His number was 221 on 09/15 and then had him come in for a 2-hour glucose tolerance test, his fasting sugar was 81, his 2-hour sugar was 139, however, his hemoglobin A1c was elevated at 6.6. His sugars do not meet the criteria for diabetes mellitus or even impaired fasting or impaired glucose tolerance. He is evidently going to be continuing the Zyprexa. At his last visit he indicated to me that it is probably going to be discontinued. OBJECTIVE: VS: BP: 134/66. P: 84. Wt: 234. ASSESSMENT: History of bipolar disorder. PLAN: We will have him go to diabetic education to learn blood sugar testing. He should test 3 times a day. He is to see me 1 week after he starts testing to monitor his sugars. I have asked them also to instruct him on diet. AAS:[id number] C: 10/14/05 13:15 DOCUMENT: [id number] documented in this encounter Plan of Treatment Not on filedocumented as of this encounter Visit Diagnoses Not on filedocumented in this encounter Care Teams Hospitality Specialist Relationship Specialty Start Date End Date Michel Jerez MD PCP - General 07/25/10 12/22/10 [address] [place] [address] documented as of this encounter
--- OUTSIDE RECORDS SUMMARY | 2022-02-14 10:54 | XMS_ITS | Encounter Summary ---
:1970 Author Organization [facility] Address [address] [address] Care Team Providers Name Role Phone Antonio Jerez MD Primary Care Provider Encounter Details Date Type Department Care Team Description 09/17/2005 Office Visit [facility] Armida Mtz MD [address] [facility] . [address] [place] [address] [place] [address] Social History Tobacco Use Types Packs/Day Years [...] signed by Armida Mtz MD at 09/18/05 2672 Author: Armida Mtz MD Service: (none) Author Type: Physician Filed: 08/14/10 1219 Note Time: 09/17/05 0001 Status: Signed Environmental Programs Specialist: Armida Mtz MD (Physician) NAME: SHARLENE VARNER MR: [id number] ACCT: [id number] VISIT: [id number] DICTATING CLINICIAN: ARMIDA MTZ MD JOB: [id number] CLINIC PROGRESS NOTE DATE OF VISIT: 09/17/2005 [...] up with his psychiatrist Dr. Kevin Hanson DRL:[id number] C: 09/17/05 20:32 DOCUMENT: [id number] documented in this encounter Plan of Treatment Not on filedocumented as of this encounter Visit Diagnoses Not on filedocumented in this encounter Care Teams Making Machine Operator Relationship Specialty Start Date End Date Antonio Jerez MD PCP - General 07/25/10 12/22/10 [address] [facility] [place] [address] documented as of this encounter
--- OUTSIDE RECORDS SUMMARY | 2022-02-14 10:54 | XMS_ITS | Encounter Summary ---
:1970 Author Organization [facility] Address [address] [address] Care Team Providers Name Role Phone Antonio Jerez MD Primary Care Provider Encounter Details Date Type Department Care Team Description 08/16/2000 PN Conversion Only [place] [address] [place], [place] [address] Social History Tobacco Use Types Packs/Day Years Used Date Smoking Tobacco: Never Assessed Sex Assigned at Date Recorded Not on file documented as of this encounter Plan of Treatment Not on filedocumented as of this encounter Visit Diagnoses Not on filedocumented in this encounter Care Teams Civil Engineering Draftsperson Relationship Specialty Start Date End Date Antonio Jerez MD PCP - General 07/25/10 12/22/10 [address] [place] [address] documented as of this encounter
--- OUTSIDE RECORDS SUMMARY | 2022-02-14 10:54 | XMS_ITS | Encounter Summary ---
:1970 Author Organization [employer] [facility] Address [address] [place] [address] Care Team Providers Name Role Phone Antonio Jerez MD Primary Care Provider Encounter Details Date Type Department Care Team Description 04/03/2003 PN Conversion Only [place]ANCH CONVERSION Antonio Jeerz, [address] [facility] [place] [address] [address] [facility] [place] [address] (Wo rk) Social History Tobacco Use Types Packs/Day Years Used Date Smoking Tobacco: Never Assessed Sex Assigned at Date Recorded Not on file documented as of this encounter Plan of Treatment Not on filedocumented as of this encounter Procedures Procedure Name Priority Date/Time Associated Comments Diagnosis DIFFERENTIAL RULE Routine 04/03/2003 1:55 PM Resu lts for this MANUAL REAL ESTATE ACCOUNT EXECUTIVE procedure are i n the results section. COMPLETE BLOOD Routine 04/03/2003 1:55 PM Results for this COUNT-W/DIFF REAL ESTATE ACCOUNT EXECUTIVE procedure are i n the results section. VALPROIC ACID Routine 04/03/2003 1:55 PM Results for this (DEPAKENE) REAL ESTATE ACCOUNT EXECUTIVE procedure are i n the results section. ALT (SGPT) Routine 04/03/2003 1:55 PM Results f or this REAL ESTATE ACCOUNT EXECUTIVE procedure are i n the results section. AST Routine 04/03/2003 1:55 PM Results f or this REAL ESTATE ACCOUNT EXECUTIVE procedure are i n the results section. documented in this encounter Results Complete Blood Count-W/Diff (04/03/2003 1:55 PM REAL ESTATE ACCOUNT EXECUTIVE) [facility] gist Method Time Signature White Blood [...] - HP CONVERSION Hemoglobin Conc 36.5 gm/dL [place] RDW 11.6 11.0 - HP CONVERSION 15.0 % Platelet Count 181 140 - 450 HP CONVERSION k/cmm Differential Manl Dif No normal HP CONVERSION Verify range Specimen (Source) Anatomical Collection Method Collection Time Re ceived Time Location / / Volume Laterality 04/03/2003 1:55 PM REAL ESTATE ACCOUNT EXECUTIVE Antonio Jerez MD LAB_1 Performing Organization Address City/[facility]/ZIP Code Phon e Number HP CONVERSION (ABNORMAL) ALT (SGPT) (04/03/2003 1:55 PM REAL ESTATE ACCOUNT EXECUTIVE) [facility] [employer] Method Time Signature Alanine 82 (H) 0 - 65 HP CONVERSION Aminotransferase U/L Specimen (Source) Anatomical Collection Method Collection Time Re ceived Time Location / / Volume Laterality 04/03/2003 1:55 PM REAL ESTATE ACCOUNT EXECUTIVE Antonio Jerez MD LAB_1 Performing Organization Address City/[facility]/ZIP Code Phon e Number HP CONVERSION (ABNORMAL) AST (04/03/2003 1:55 PM REAL ESTATE ACCOUNT EXECUTIVE) [facility] [employer] Method Time Signature Aspartate 70 (H) 0 - 45 HP CONVERSION Aminotransferase U/L Specimen (Source) Anatomical Collection Method Collection Time Re ceived Time Location / / Volume Laterality 04/03/2003 1:55 PM REAL ESTATE ACCOUNT EXECUTIVE Antonio Jerez MD LAB_1 Performing Organization Address City/State/ZIP Code Phon e Number HP CONVERSION (ABNORMAL) Valproic Acid (Depakene) (04/03/2003 1:55 PM REAL ESTATE ACCOUNT EXECUTIVE) Analysis Performed At [facility] Time Signature Time Last Dose 2,200 No normal HP CONVERSION Valproic Acid range Date Last Dose [id number] No normal HP CONVERSION Valproic Acid range Valproic 157 (H) 50 - 100 HP CONVERSION Acid/Depakene ug/mL (Valp) Specimen (Source) Anatomical Collection Method Collection Time Re ceived Time Location / / Volume Laterality 04/03/2003 1:55 PM REAL ESTATE ACCOUNT EXECUTIVE Antonio Jerez MD LAB_1 Performing Organization Address City/[facility] Code Phon e Number HP CONVERSION (ABNORMAL) Differential Rule Manual (04/03/2003 1:55 PM REAL ESTATE ACCOUNT EXECUTIVE) [facility] gist Method Time Signature Neutrophils 36 [...] / / Volume Laterality 04/03/2003 1:55 PM REAL ESTATE ACCOUNT EXECUTIVE Antonio Jerez MD LAB_1 Performing Organization Address City/[facility] Phon e Number HP CONVERSION documented in this encounter Visit Diagnoses Not on filedocumented in this encounter Care Teams Chiropractor Sole Practitioner Relationship Specialty Start Date End Date Antonio Jerez MD PCP - General 07/25/10 12/22/10 [address] [place] [address] documented as of this encounter
--- OUTSIDE RECORDS SUMMARY | 2022-02-14 10:54 | XMS_ITS | Encounter Summary ---
:1970 Author Organization [email or web address] Address [address] [address] Care Team Providers Name Role Phone Antonio Jerez MD Primary Care Provider Encounter Details Date Type Department Care Team Description 03/21/2000 PN Conversion Only [place] [address] [place], [place] [address] Social History Tobacco Use Types Packs/Day Years Used Date Smoking Tobacco: Never Assessed Sex Assigned at Date Recorded Not on file documented as of this encounter Plan of Treatment Not on filedocumented as of this encounter Visit Diagnoses Not on filedocumented in this encounter Care Teams Gyroscopic Instrument Mechanic Relationship Specialty Start Date End Date Antonio Jerez MD PCP - General 07/25/10 12/22/10 [address] [place] [address] documented as of this encounter
--- OUTSIDE RECORDS SUMMARY | 2022-02-14 10:54 | XMS_ITS | Encounter Summary ---
:1970 Author Organization [employer] Address [address] [address] Care Team Providers Name Role Phone Antonio Jerez MD Primary Care Provider Encounter Details Date Type Department Care Team Description 08/25/2001 PN Conversion [place] [address] [place], [place] [address] Social History Tobacco Use Types Packs/Day Years Used Date Smoking Tobacco: Never Assessed Sex Assigned at Date Recorded Not on file documented as of this encounter Plan of Treatment Not on filedocumented as of this encounter Visit Diagnoses Not on filedocumented in this encounter Care Teams Engraving Patternmaker Relationship Specialty Start Date End Date Antonio Jerez MD PCP - General 07/25/10 12/22/10 [address] [place] [address] documented as of this encounter
--- OUTSIDE RECORDS SUMMARY | 2022-02-14 10:54 | XMS_ITS | Encounter Summary ---
:1970 Author Organization [facility] Address [address] [place] [address] Care Team Providers Name Role Phone Unavailable Primary Care Provider Unavailable Encounter Details Date Type Department Care Team Description 05/25/1987 - 07/22/1988 Hospital Encounter TENRIISM CONVERSION Social History Tobacco Use Types Packs/Day Years Used Date Smoking Tobacco: Never Assessed Sex Assigned at Date Recorded Not on file documented as of this encounter Plan of Treatment Not on filedocumented as of this encounter Visit Diagnoses Not on filedocumented in this encounter
--- OUTSIDE RECORDS SUMMARY | 2022-02-14 10:54 | XMS_ITS | Encounter Summary ---
:1970 Author Organization [employer] Address [address] [address] Care Team Providers Name Role Phone Antonio Jerez MD Primary Care Provider Encounter Details Date Type Department Care Team Description 02/21/2002 PN Conversion Only [place] [address] [place], [place] [address] Social History Tobacco Use Types Packs/Day Years Used Date Smoking Tobacco: Never Assessed Sex Assigned at Date Recorded Not on file documented as of this encounter Plan of Treatment Not on filedocumented as of this encounter Visit Diagnoses Not on filedocumented in this encounter Care Teams Line Decorator Relationship Specialty Start Date End Date Antonio Jerez MD PCP - General 07/25/10 12/22/10 [address] [place] [address] documented as of this encounter
--- OUTSIDE RECORDS SUMMARY | 2022-02-14 10:54 | XMS_ITS | Encounter Summary ---
:1970 Author Organization [facility] [employer] Address [address] [place] [address] Care Team Providers Name Role Phone Michel Daniel MD Primary Care Provider Encounter Details Date Type Department Care Team Description 10/04/2005 Office Visit [facility] Michel Daniel MD [address] [facility] . [address] [place] [address] [place] [address] [phone] (Wo rk) Social History Tobacco Use Types [...] 1237 Note Time: 10/04/05 0001 Status: Signed Knotter: Michel Daniel MD (Physician) NAME: SHARLENE VARNER MR: [id number] ACCT: [id number] VISIT: [id number] DICTATING CLINICIAN: MICHEL DANIEL MD JOB: [id number] CLINIC PROGRESS NOTE DATE OF VISIT: 10/04/2005 [...] blood sugars periodically on and/or off Zyprexa. AAS:[id number] C: 10/05/05 10:37 DOCUMENT: [id number] documented in this encounter Plan of Treatment Not on filedocumented as of this encounter Visit Diagnoses Not on filedocumented in this encounter Care Teams Package Sealer Machine Relationship Specialty Start Date End Date Michel Daniel MD PCP - General 07/25/10 12/22/10 [facility]5 [place] [address] documented as of this encounter
--- OUTSIDE RECORDS SUMMARY | 2022-02-14 10:54 | XMS_ITS | Encounter Summary ---
:1970 Author Organization [facility] Address [address] [address] Care Team Providers Name Role Phone Antonio Jerez MD Primary Care Provider Encounter Details Date Type Department Care Team Description 03/12/2002 PN Conversion Only DRUZE CONVERSION Kvng Jerez MD [address] [place], [place] [address] (Wo rk) Social History Tobacco Use Types Packs/Day Years Used Date Smoking Tobacco: Never Assessed Sex Assigned at Date Recorded Not on file documented as of this encounter Plan of Treatment Not on filedocumented as of this encounter Visit Diagnoses Not on filedocumented in this encounter Care Teams Tube Coater Relationship Specialty Start Date End Date Antonio Jerez MD PCP - General 07/25/10 12/22/10 [address] [place] [address] documented as of this encounter
--- OUTSIDE RECORDS SUMMARY | 2022-02-14 10:54 | XMS_ITS | Encounter Summary ---
:1970 Author Organization [facility] Address [address], [place] [address] Care Team Providers Name Role Phone Antonio Jerez MD Primary Care Provider Encounter Details Date Type Department Care Team Description 10/18/2002 PN Conversion [place] [address] [place], [place] [address] Social History Tobacco Use [...] (10/18/2002 1:56 PM CDT) [facility] Time Signature Time Last Dose 2,330 No normal HP CONVERSION Valproic Acid range Date Last Dose [id number] No normal HP CONVERSION Valproic Acid range [...] filedocumented in this encounter Care Teams Car Top Bolter Relationship Specialty Start Date End Date Antonio Jerez MD PCP - General 07/25/10 12/22/10 [address] [place] [address] documented as of this encounter
--- OUTSIDE RECORDS SUMMARY | 2022-02-14 10:54 | XMS_ITS | Encounter Summary ---
:1970 [address] [facility] Address [address] [place] [address] Care Team Providers Name Role Phone Antonio Jerez MD Primary Care Provider Encounter Details Date Type Department Care Team Description 09/15/2005 PN Conversion Only [place] CONVERSION Antonio Jerez, [address] [place] [address] 14[address] [facility] [place] [address] (Wo rk) Social History Tobacco Use Types Packs/Day Years Used Date Smoking Tobacco: Never Assessed Sex Assigned at Date Recorded Not on file documented as of this encounter Plan of Treatment Not on filedocumented as of this encounter Procedures Procedure Name Priority Date/Time Associated Diagnosis Comme nts GLUCOSE Routine 09/15/2005 11:50 AM Results for this CDT procedure are i n the results section . documented in this encounter Results (ABNORMAL) Glucose (09/15/2005 11:50 AM CDT) P athologist Signature Length Of Fast 1.0 Hours HP CONVERSION Comment: The fasting period is suboptima l, less than 8 hours. Lab Glucose 221 (H) 60 - 100 mg/dL HP CONVERSION Specimen (Source) Anatomical Collection Method Collection Time Re ceived Time Location / / Volume Laterality 09/15/2005 11:50 AM CDT Antonio Jerez MD LAB_1 Performing Organization Address City/State/ZIP Code Phon e Number HP CONVERSION documented in this encounter Visit Diagnoses Not on filedocumented in this encounter Care Teams After School Tutor Relationship Specialty Start Date End Date Antonio Jerez MD PCP - General 07/25/10 12/22/10 [address] [place] [address] documented as of this encounter
--- OUTSIDE RECORDS SUMMARY | 2022-02-14 10:54 | XMS_ITS | Encounter Summary ---
:1970 Author Organization [facility] Address [address] [address] Care Team Providers Name Role Phone Antonio Jerez MD Primary Care Provider Encounter Details Date Type Department Care Team Description 12/18/2004 PN Conversion Only AMALIA CONVERSIO Kevin Jordan, [address] [place] [address] [address] [facility] [address] [place] [address] Social History Tobacco Use Types Packs/Day Years Used Date Smoking Tobacco: Never Assessed Sex Assigned at Date Recorded Not on file documented as of this encounter Plan of Treatment Not on filedocumented as of this encounter Procedures Procedure Name Priority Date/Time Associated Diagnosis Comme nts VALPROIC ACID Routine 12/18/2004 8:30 AM Results for this (DEPAKENE) CDT procedure are i n the results section. documented in this encounter Results (ABNORMAL) Valproic Acid (Depakene) (12/18/2004 8:30 AM CDT) P athologist Signature Valproic 111 (H) 50 - 100 HP CONVERSION Acid/Depakene ug/mL (Valp) Specimen (Source) Anatomical Collection Method Collection Time Re ceived Time Location / / Volume Laterality 12/18/2004 8:30 AM CDT Kevin Hanson MD LAB_1 Performing Organization Address City/State/ZIP Code Phon e Number HP CONVERSION documented in this encounter Visit Diagnoses Not on filedocumented in this encounter Care Teams Plating Department Helper Relationship Specialty Start Date End Date Antonio Jerez MD PCP - General 07/25/10 12/22/10 [address] [place] [address] documented as of this encounter
--- OUTSIDE RECORDS SUMMARY | 2022-02-14 10:54 | XMS_ITS | Encounter Summary ---
:1970 Author Organization [employer] Address [address], [place] [address] Care Team Providers Name Role Phone Antonio Jerez MD Primary Care Provider Encounter Details Date Type Department Care Team Description 04/19/2000 PN Conversion [place] [address] [place], [place] [address] Social History Tobacco Use Types Packs/Day Years Used Date Smoking Tobacco: Never Assessed Sex Assigned at Date Recorded Not on file documented as of this encounter Plan of Treatment Not on filedocumented as of this encounter Visit Diagnoses Not on filedocumented in this encounter Care Teams Multiple Knife Edge Trimmer Operator Relationship Specialty Start Date End Date Antonio Jerez MD PCP - General 07/25/10 12/22/10 [address] [place] [address] documented as of this encounter
--- OUTSIDE RECORDS SUMMARY | 2022-02-14 10:54 | XMS_ITS | Encounter Summary ---
:1970 Author Organization [facility] Address [address] [place] [address] Care Team Providers Name Role Phone Michel Daniel MD Primary Care Provider Encounter Details Date Type Department Care Team Description 04/03/2003 PN Conversion Only [facility] Michel Daniel , [facility] MD [address] [facility] . [address] [place] [address] [place] [address] [phone] (Wo rk) Social History Tobacco Use Types [...] 1738 Note Time: 04/03/03 0001 Status: Signed Scientific Advisor: Michel Daniel MD (Physician) NAME: SHARLENE VARNER MR: [id number] ACCT: [id number] VISIT: [id number] DICTATING CLINICIAN: MICHEL DANIEL MD JOB: [id number] CLINIC PROGRESS NOTE DATE OF VISIT: 04/03/2003 SUBJECTIVE: : 1970. Rustam is in today because he has had recurrence of some penile varicoid lesions. Rustam has a history of bipolar disorder he is on Depakote at 1500 mg twice a day. He is seen by Dr. Kevin Hnason in psychiatry. His last visit was in September. At that time his Depakote level was slightly elevated at 123 with a therapeutic level being between 50 and 100. Rustam continues to work at [employer]. He is working 40 hours a week. [...] me on a p.r.n. basis. TT: CT: [id number] C: 04/03/03 17:34 DOCUMENT: [id number] ALLER INTERIOR ASSEMBLIES documented in this encounter Plan of Treatment Not on filedocumented as of this encounter Visit Diagnoses Not on filedocumented in this encounter Care Teams Medical Claims Assistant Relationship Specialty Start Date End Date Michel Daniel MD PCP - General 07/25/10 12/22/[address] [place] [address] documented as of this encounter
--- OUTSIDE RECORDS SUMMARY | 2022-02-14 10:54 | XMS_ITS | Encounter Summary ---
:1970 Author Organization [facility] Address [address] [place] [address] Care Team Providers Name Role Phone Michel Jerez MD Primary Care Provider Encounter Details Date Type Department Care Team Description 09/15/[address] [facility] Michel Jerez MD [address] [facility] . [address] [place] [address] [place] [address] [phone] (Wo rk) Social History Tobacco Use Types [...] 1217 Note Time: 09/15/05 0001 Status: Signed Superintendent Overhead Distribution: Michel Jerez MD (Physician) NAME: SHARLENE VARNER MR: [id number] ACCT: [id number] VISIT: [id number] DICTATING CLINICIAN: MICHEL JEREZ MD JOB: [id number] CLINIC PROGRESS NOTE DATE OF VISIT: 09/15/2005 SUBJECTIVE: : 1970. A 35-year-old male who is in today with a growth on the shaft of his penis on the left side. 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 Nathan has a history of bipolar disorder. He [...] ASSESSMENT: 1. Skin tag. 2. Bipolar disorder. AAS:[id number] C: 09/16/05 12:42 DOCUMENT: [id number] documented in this encounter Plan of Treatment Not on filedocumented as of this encounter Visit Diagnoses Not on filedocumented in this encounter Care Teams Consulting Project Director Relationship Specialty Start Date End Date Michel Jerez MD PCP - General 07/25/10 12/22/10 [facility] [address] documented as of this encounter
--- OUTSIDE RECORDS SUMMARY | 2022-02-14 10:54 | XMS_ITS | Encounter Summary ---
:1970 Author Organization [facility] Address [address] [place] [address] Care Team Providers Name Role Phone Antonio Jerez MD Primary Care Provider Encounter Details Date Type Department Care Team Description 10/04/2005 PN Conversion Only [place] CONVERSION Antonio Jerez, [address] [facility] [place] [address] [address] [facility] [place] [address] (Wo rk) Social History Tobacco Use Types Packs/Day Years Used Date Smoking Tobacco: Never Assessed Sex Assigned at Date Recorded Not on file documented as of this encounter Plan of Treatment Not on filedocumented as of this encounter Procedures Procedure Name Priority Date/Time Associated Diagnosis Comme nts HGB A1C Routine 10/04/2005 12:30 PM Results for this CDT procedure are i n the results section. GLUCOSE, WHOLE Routine 10/04/2005 12:10 PM Result s for this BLOOD POCT CDT procedure are i n the results section. documented in this encounter Results (ABNORMAL) Hgb A1c (10/04/2005 12:30 PM CDT) P athologist Signature HGB A1C 6.6 (H) <6.0 % HP CONVERSION Specimen (Source) Anatomical Collection Method Collection Time Re ceived Time Location / / Volume Laterality 10/04/2005 12:30 PM CDT Antonio Jerez MD LAB_1 Performing Organization Address City/State/ZIP Code Phon e Number HP CONVERSION [facility] (10/04/2005 12:10 PM CDT) P athologist Signature Bedside Blood 76 mg/dL HP CONVERSION Glucose Test Specimen (Source) Anatomical Collection Method Collection Time Re ceived Time Location / / Volume Laterality 10/04/2005 12:10 PM CDT Antonio Jerez MD LAB_1 Performing Organization Address City/State/ZIP Code Phon e Number HP CONVERSION documented in this encounter Visit Diagnoses Not on filedocumented in this encounter Care Teams Manager Economic Relationship Specialty Start Date End Date Antonio Jerez MD PCP - General 07/25/10 12/22/10 [address] [facility] [place] [address] documented as of this encounter
--- OUTSIDE RECORDS SUMMARY | 2022-02-14 10:54 | XMS_ITS | Encounter Summary ---
:1970 Author Organization [employer] Address [address] [place] [address] Care Team Providers Name Role Phone Michel Daniel MD Primary Care Provider Encounter Details Date Type Department Care Team Description 05/19/2005 Office Visit [facility] Michel Daniel MD 14[address] [facility] . [address] [place] [address] [place] [address] [phone] (Wo rk) Social History Tobacco Use Types Packs/Day Years Used Date Smoking Tobacco: Never Assessed Sex Assigned at Date Recorded Not on file documented as of this encounter Last Filed Vital Signs Vital Sign Reading Time Taken Comments Blood Pressure 132/84 05/19/2005 1:00 PM HARD METALS ENGRAVER HAND Pulse - - Temperature 37.1 ??C (98.8 ??F) 05/19/2005 1:00 PM HARD METALS ENGRAVER HAND C: 37 .1 C Respiratory Rate - - Oxygen Saturation - - Inhaled Oxygen Concentration - - Weight 97.1 kg (213 lb 15.7 oz) 05/19/2005 1:00 PM HARD METALS ENGRAVER HAND C: 97.1kg Height - - Body Mass Index - - documented in this encounter Progress Notes Michel Daniel MD - 05/19/2005 12:01 AM CST Progress Notes signed by Michel Daniel MD at 05/21/05 0715 Author: Michel Daniel MD Service: (none) Author Type: Physician Filed: 08/14/10 0947 Note Time: 05/19/05 0001 Status: Signed Land Survey Technician: Michel Daniel MD (Physician) NAME: SHARLENE VARNER MR: [id number] ACCT: [id number] VISIT: [id number] DICTATING CLINICIAN: MICHEL DANIEL MD JOB: [id number] CLINIC PROGRESS NOTE DATE OF VISIT: 05/19/2005 [...] fluids, recheck p.r.n. 2. Influenza vaccine today. AAS:[id number] C: 05/20/05 09:24 DOCUMENT: [id number] METALS ENGRAVER HAND documented in this encounter Plan of Treatment Not on filedocumented as of this encounter Visit Diagnoses Not on filedocumented in this encounter Care Teams Director Of Clinical Trials Relationship Specialty Start Date End Date Michel Daniel MD PCP - General 07/25/10 12/22/[address] [place] [address] documented as of this encounter
--- OUTSIDE RECORDS SUMMARY | 2022-02-14 10:54 | XMS_ITS | Encounter Summary ---
:1970 Author Organization [employer] [facility] Address [address] [address] Care Team Providers Name Role Phone Antonio Jerez MD Primary Care Provider Encounter Details Date Type Department Care Team Description 04/10/1999 PN Conversion Only [place] [address] [place], [place] [address] Social History Tobacco Use Types Packs/Day Years Used Date Smoking Tobacco: Never Assessed Sex Assigned at Date Recorded Not on file documented as of this encounter Plan of Treatment Not on filedocumented as of this encounter Visit Diagnoses Not on filedocumented in this encounter Care Teams Architect Relationship Specialty Start Date End Date Antonio Jerez MD PCP - General 07/25/10 12/22/10 [address] [place] [address] documented as of this encounter
--- OUTSIDE RECORDS SUMMARY | 2022-02-14 10:54 | XMS_ITS | Encounter Summary ---
:1970 Author Organization [facility] Address [address], [place] [address] Care Team Providers Name Role Phone Antonio Jerez MD Primary Care Provider Encounter Details Date Type Department Care Team Description 07/17/2003 Dehydrogenation Supervisor Only CONVERSION CONVERSION Dave Aquino MBBS [address] [facility] [address] (Wo rk) Social History Tobacco Use [...] 193 Note Time: 07/17/03 0001 Status: Signed Bath Steward: REINA Olivia (Resource) VPA 119 from 07/03/03. No action needed at current time. OMS CONSULTANT documented in this encounter Plan of Treatment Not on filedocumented as of this encounter Visit Diagnoses Not on filedocumented in this encounter Care Teams Opto Mechanical Engineer Relationship Specialty Start Date End Date Antonio Jerez MD PCP - General 07/25/10 12/22/10 [address] [place] [address] documented as of this encounter
--- OUTSIDE RECORDS SUMMARY | 2022-02-14 10:54 | XMS_ITS | Encounter Summary ---
:1970 Author Organization [facility] Address [address] [address] Care Team Providers Name Role Phone Antonio Jerez MD Primary Care Provider Encounter Details Date Type Department Care Team Description 07/30/2005 PN Conversion Only Kevin Blackburn, [address] [place] [address] [address] [facility] [address] [place] [address] Social History Tobacco Use Types Packs/Day Years Used Date Smoking Tobacco: Never Assessed Sex Assigned at Date Recorded Not on file documented as of this encounter Plan of Treatment Not on filedocumented as of this encounter Procedures Procedure Name Priority Date/Time Associated Diagnosis Comme nts VALPROIC ACID Routine 07/30/2005 11:10 AM Results for this (DEPAKENE) CDT procedure are i n the results section. ALT (SGPT) Routine 07/30/2005 11:10 AM Results for this CDT procedure are i n the results section. documented in this encounter Results (ABNORMAL) ALT (SGPT) (07/30/2005 11:10 AM CDT) Patholo gist Method Time Signature Alanine 80 (H) 0 - 65 HP CONVERSION Aminotransferase U/L Specimen (Source) Anatomical Collection Method Collection Time Re ceived Time Location / / Volume Laterality 07/30/2005 11:10 AM CDT Kevin Hanson MD LAB_1 Performing Organization Address City/State/ZIP Code Phon e Number HP CONVERSION Valproic Acid (Depakene) (07/30/2005 11:10 AM CDT) P athologist Signature Valproic 66 50 - 100 HP CONVERSION Acid/Depakene ug/mL (Valp) Specimen (Source) Anatomical Collection Method Collection Time Re ceived Time Location / / Volume Laterality 07/30/2005 11:10 AM CDT Kevin Hanson MD LAB_1 Performing Organization Address City/State/ZIP Code Phon e Number HP CONVERSION documented in this encounter Visit Diagnoses Not on filedocumented in this encounter Care Teams Comic Writer Relationship Specialty Start Date End Date Antonio Jerez MD PCP - General 07/25/10 12/22/10 [address] [facility] [place] [address] documented as of this encounter
--- OUTSIDE RECORDS SUMMARY | 2022-02-14 10:54 | XMS_ITS | Encounter Summary ---
:1970 Author Organization [facility] Address [address] [address] Care Team Providers Name Role Phone Antonio Jerez MD Primary Care Provider Encounter Details Date Type Department Care Team Description 07/16/2003 PN Conversion Only [place] Lyndsay Perry, [address] [place] [address] [place] [address] (Wo rk) Social History Tobacco Use Types Packs/Day Years Used Date Smoking Tobacco: Never Assessed Sex Assigned at Date Recorded Not on file documented as of this encounter Plan of Treatment Not on filedocumented as of this encounter Procedures Procedure Name Priority Date/Time Associated Diagnosis Comme nts VALPROIC ACID Routine 07/16/2003 9:26 AM Results for this (DEPAKENE) ASSEMBLER HYDRAULIC BACKHOE procedure are i n the results section. documented in this encounter Results (ABNORMAL) Valproic Acid (Depakene) (07/16/2003 9:26 AM ASSEMBLER HYDRAULIC BACKHOE) P athologist Signature Valproic 119 (H) 50 - 100 HP CONVERSION Acid/Depakene ug/mL (Valp) Specimen (Source) Anatomical Collection Method Collection Time Re ceived Time Location / / Volume Laterality 07/16/2003 9:26 AM ASSEMBLER HYDRAULIC BACKHOE Lyndsay HUANG LAB_1 Performing Organization Address City/State/ZIP Code Phon e Number HP CONVERSION documented in this encounter Visit Diagnoses Not on filedocumented in this encounter Care Teams Scraper Tender Relationship Specialty Start Date End Date Antonio Jerez MD PCP - General 07/25/10 12/22/10 [address] [facility] [place] [address] documented as of this encounter
--- OUTSIDE RECORDS SUMMARY | 2022-02-14 10:54 | XMS_ITS | Encounter Summary ---
:1970 Author Organization [facility] Address [address] [address] Care Team Providers Name Role Phone Antonio Jerez MD Primary Care Provider Encounter Details Date Type Department Care Team Description 07/31/2003 PN Conversion Only CHARLES CONVERSKevin Mcneill, [address] [place] [address] [facility] [address] [place] [address] Social [...] CONVERSION Valproic Acid range Date Last Dose [id number] No normal HP CONVERSION Valproic Acid range [...] on filedocumented in this encounter Care Teams Tape Sewing Machine Operator Relationship Specialty Start Date End Date Antonio Jerez MD PCP - General 07/25/10 12/22/10 14[address] [facility] [place] [address] documented as of this encounter
--- OUTSIDE RECORDS SUMMARY | 2022-02-14 10:54 | XMS_ITS | Encounter Summary ---
:1970 Author Organization [employer] Address [address] [address] Care Team Providers Name Role Phone Antonio Jerez MD Primary Care Provider Encounter Details Date Type Department Care Team Description 07/09/2003 Shipping And Receiving Coordinator Only CONVERSION CONVERSION Delpihne Malin i, APRN, CNS [address] [place] [address] (Wo rk) Social History Tobacco [...] 192 Note Time: 07/09/03 0001 Status: Signed Network Cabler: SHERIF Bell (Clinical Nurse Specialist) Pt call, [...] f/u with Dr. Aquino in two weeks. AS CUTTER documented in this encounter Plan of Treatment Not on filedocumented as of this encounter Visit Diagnoses Not on filedocumented in this encounter Care Teams Benefits Specialist Recruiter Relationship Specialty Start Date End Date Antonio Jerez MD PCP - General 07/25/10 12/22/10 [address] [facility] [place] [address] documented as of this encounter
--- OUTSIDE RECORDS SUMMARY | 2022-02-14 10:54 | XMS_ITS | Encounter Summary ---
:1970 Author [facility] Address [address] [address] Care Team Providers Name Role Phone Antonio Jerez MD Primary Care Provider Encounter Details Date Type Department Care Team Description 11/30/2000 PN Conversion Only JAINISM CONVERSION Kvng Jerez MD [address] [place], [place] [address] (Wo rk) Social History Tobacco Use Types Packs/Day Years Used Date Smoking Tobacco: Never Assessed Sex Assigned at Date Recorded Not on file documented as of this encounter Plan of Treatment Not on filedocumented as of this encounter Visit Diagnoses Not on filedocumented in this encounter Care Teams Supervisor Record Press Relationship Specialty Start Date End Date Antonio Jerez MD PCP - General 07/25/10 12/22/10 [address] [place] [address] documented as of this encounter
--- OUTSIDE RECORDS SUMMARY | 2022-02-14 10:54 | XMS_ITS | Encounter Summary ---
:1970 Author Organization [email or web address] Address [address] [address] Care Team Providers Name Role Phone Antonio Jerez MD Primary Care Provider Encounter Details Date Type Department Care Team Description 05/26/2001 PN Conversion [place] [address] [place], [place] [address] Social History Tobacco Use Types Packs/Day Years Used Date Smoking Tobacco: Never Assessed Sex Assigned at Date Recorded Not on file documented as of this encounter Plan of Treatment Not on filedocumented as of this encounter Visit Diagnoses Not on filedocumented in this encounter Care Teams Invoicing Specialist Relationship Specialty Start Date End Date Antonio Jerez MD PCP - General 07/25/10 12/22/10 [address] [place] [address] documented as of this encounter
--- OUTSIDE RECORDS SUMMARY | 2022-02-14 10:54 | XMS_ITS | Encounter Summary ---
:1970 Author Organization [facility] [employer] Address [address] [address] Care Team Providers Name Role Phone Antonio Jerez MD Primary Care Provider Encounter Details Date Type Department Care Team Description 09/11/1999 PN Conversion [place] [address] [place], [place] [address] Social History Tobacco Use Types Packs/Day Years Used Date Smoking Tobacco: Never Assessed Sex Assigned at Date Recorded Not on file documented as of this encounter Plan of Treatment Not on filedocumented as of this encounter Visit Diagnoses Not on filedocumented in this encounter Care Teams Peripheral Edp Equipment Operator Relationship Specialty Start Date End Date Antonio Jerez MD PCP - General 07/25/10 12/22/10 [address] [place] [address] documented as of this encounter
--- OUTSIDE RECORDS SUMMARY | 2022-02-14 10:54 | XMS_ITS | Encounter Summary ---
:1970 Author Organization [facility] Address [address], [place] [address] Care Team Providers Name Role Phone Antonio Jerez MD Primary Care Provider Encounter Details Date Type Department Care Team Description 03/20/2003 PN Conversion Only NELSON LAGOON CONVERSION [address] [place] [address] Social History Tobacco Use Types Packs/Day Years Used Date Smoking Tobacco: Never Assessed Sex Assigned at Date Recorded Not on file documented as of this encounter Plan of Treatment Not on filedocumented as of this encounter Visit Diagnoses Not on filedocumented in this encounter Care Teams Tire Builder Heavy Service Relationship Specialty Start Date End Date Antonio Jerez MD PCP - General 07/25/10 12/22/10 [address] [place] [address] documented as of this encounter
--- OUTSIDE RECORDS SUMMARY | 2022-02-14 10:54 | XMS_ITS | Encounter Summary ---
:1970 Author Organization [facility] Address [address] [place] [address] Care Team Providers Name Role Phone Antonio Jerez MD Primary Care Provider Encounter Details Date Type Department Care Team Description 08/17/2004 [facility]ga Child[facility] PA-C 1415 [facility] . [address] [place] [address] [place] [address] [phone] (Wo rk) Social History Tobacco Use Types Packs/Day Years Used Date Smoking Tobacco: Never Assessed Sex Assigned at Date Recorded Not on file documented as of this encounter Progress Notes Olga Peterson V - 08/17/2004 12:01 AM CDT Progress Notes signed by Olga Vicente PA-C at 09/13/04 0841 Author: Olga Vicente PA-C Service: (none) Author Type: Physician Inspector Production Plastic Parts Filed: 08/14/10 0431 Note Time: 08/17/04 0001 Status: Signed Outbound Call Center Representative: Olga Vicente PA-C (Physician Inspector Production Plastic Parts) NAME: SHARLENE VARNER MR: [id number] ACCT: [id number] VISIT: [id number] DICTATING CLINICIAN: KEREN CAMARGO JOB: [id number] CLINIC PROGRESS NOTE DATE OF VISIT: 08/17/2004 SUBJECTIVE: : 1970. Npoype-sadq-vids-old male comes in concerned about sinus congestion [...] Obese. ASSESSMENT: Cough, bronchitis, sinusitis. PLAN: Mucinex lwsp-erb-obaekex twice daily for the next 10 days. [...] do not improve would recommend chest x-ray. MVT:[id number] C: 08/17/04 13:16 DOCUMENT: [id number] documented in this encounter Plan of Treatment Not on filedocumented as of this encounter Visit Diagnoses Not on filedocumented in this encounter Care Teams Medical Artist Relationship Specialty Start Date End Date Antonio Jerez MD PCP - General 07/25/10 12/22/10 [address] [place] [address] documented as of this encounter
[2022-02-14 10:58] LABS: Basophils Absolute Auto 0.02 K/uL (0.00-0.30); Basophils Percent Auto 0.3 % (0.0-3.0); Eosinophils Absolute Auto 0.13 K/uL (0.00-0.50); Eosinophils Percent Auto 1.8 % (0.0-7.0); Hematocrit 30.9 % (37.0-53.0); Hemoglobin* 10.6 gm/dL (13.5-17.5); Immature Granulocytes Abs Auto 0.02 K/uL (0.00-0.30); Lymphocytes Absolute Auto 1.74 K/uL (0.90-2.90); Mean Corpuscular HGB Conc 34 gm/dL (32-36); Mean Corpuscular Hemoglobin 31 pg (26-34); Mean Corpuscular Volume 90 fL (80-100); Monocytes Percent Auto 19.9 % (0.0-11.0); Neutrophils Percent Auto 53.7 % (42.0-72.0); Platelet Count* 175 K/uL (140-440); RDW Coefficient of Variation % 11.8 % (11.5-15.5); Red Blood Count 3.43 m/uL (4.30-5.90); White Blood Count* 7.25 K/uL (4.50-11.00)
[2022-02-14 11:11] LABS: Slide Review Reflex No
[2022-02-14 11:19] LABS: Chloride* 97 mmol/L (96-114); Potassium* 4.4 mmol/L (3.6-5.1); Sodium* 133 mmol/L (135-149)
[2022-02-14 11:22] LABS: Blood Urea Nitrogen* 19 mg/dL (7-30); Carbon Dioxide* 28 mmol/L (20-32); Creatinine* 1.1 mg/dL (0.5-1.5); Est. Creatinine Clearance* 81.11; Estimated Glomerular Filt Rate 81 ml/min; Glucose* 63 mg/dL (60-115)
[2022-02-14 11:23] LABS: Calcium* 8.4 mg/dL (8.4-10.6)
[2022-02-14 11:32] LABS: NT Pro B Type NatriureticPept* 668 PG/mL (0-125)
[2022-02-14 11:35] LABS: PCR FLU A Negative PCR FLU A (Negative); PCR FLU B Negative PCR FLU B (Negative); PCR RSV Negative PCR RSV (Negative)
[2022-02-14 11:36] LABS: SARS PCR* Negative SARS-CoV-2 (Negative)
--- OUTSIDE RECORDS SUMMARY | 2022-02-14 14:53 | XMS_ITS | Encounter Summary ---
:1970 Author Organization [facility] Address [address] [address] Care Team Providers Name Role Phone Gagandeep Michaud MD Primary Care Provider Reason for Visit Reason Comments Refill Aspirin and Depakote Encounter Details Date Type Department Care Team Description 09/02/2020 Refill [place] [facility] Gagandeep Michaud, Refil l (Aspirin and Medicine MD Shearer) 1415 [facility] . [address] [place] [address] [place], [place] [address] (Wo rk) Social History Tobacco Use Types [...] provider through [place] as he moved to [place] now. Will request refills through new provider. [...] MICHAUD) Next scheduled visit: None Powered by [facility] by Cortona3D, Reference: [id number], 09/02/2020 1:13:39 PM CDT, Pool:MANUEL LANDAILL ([id number]) divalproex (DEPAKOTE) [address] tablet [Pharmacy Med Name: Divalproex Sodium 500 MG Tablet delayed release] Medication started: 04/02/2016 Last ordered by UNKNOWN, PHYSICIAN: 06/09/2016 (1546 days ago as Historical on 06/09/2016 by LUIL JUSTIN), Sig: take 3,000 mg by mouth. [...] WBC: 8.4 k/cmm on 11/28/2018 Powered by Mandae by Cortona3D, Reference: [id number], 09/02/2020 1:13:39 PM CDT, Pool:MANUEL MOORE ([id number]) documented in this encounter Plan of Treatment Not on filedocumented as of this encounter Visit Diagnoses Not on filedocumented in this encounter Care Teams Plastic Die Maker Apprentice Relationship Specialty Start Date End Date Gagandeep Michaud MD PCP - General 05/17/12 [facility]5 [facility] Rodriguez [address] Vane Zarate Psychiatrist Psychiatry 03/22/12 [facility] Mental Health Psychotherapist 08/04/17 [facility] Mobile Device Engineer 09/13/17 documented as of this encounter
--- OUTSIDE RECORDS SUMMARY | 2022-02-14 14:53 | XMS_ITS | Encounter Summary ---
:1970 Author Organization [employer] Address [address] [place] [address] Care Team Providers Name Role Phone Gagandeep Michaud MD Primary Care Provider Reason for Visit Reason Comments Refill Crestor Encounter Details Date Type Department Care Team Description 09/02/2020 Refill [facility] Gagandeep Michaud MD Refill (Crestor) 1415 [facility] . [address] [place] [address] [place], [place] [address] (Wo rk) Social History Tobacco Use Types [...] provider through [place] as he moved to [place] now. Will request refills through new provider. [...] MICHAUD) Next scheduled visit: None Powered by [facility] by VocoMD, Reference: [id number], 09/02/2020 1:18:44 PM CDT, Pool:MANUEL REFILL ([id number]) documented in this encounter Plan of Treatment Not on filedocumented as of this encounter Visit Diagnoses Not on filedocumented in this encounter Care Teams Ivory Carver Relationship Specialty Start Date End Date Gagandeep Michaud MD PCP - General 05/17/12 1415 [facility] KAT[place]NA Gerber [address] Vane Zarate Psychiatrist Psychiatry 03/22/12 [facility] Psychotherapist 08/04/17 [facility] Bung Dropper 09/13/17 documented as of this encounter
--- OUTSIDE RECORDS SUMMARY | 2022-02-14 14:53 | XMS_ITS | Encounter Summary ---
:1970 Author Organization [facility] Address [address] [place] [address] Care Team Providers Name Role Phone Gagandeep Michaud MD Primary Care Provider Reason for Visit Reason Comments Refill NOVOFINE AUTOCOVER PEN NEEDL E 30G X 8 MM [Pharmacy Med Name: NovoFine Autocover Pen Needle 30G X 8 MM Miscellaneous] Encounter Details Date Type Department Care Team Description 09/07/2021 Refill [facility] Gagandeep Michaud, Refil l (NOVOFINE Medicine AUTOCOVER PEN NEEDLE 30G [address] X 8 MM [Pharmacy Med [place]AT[place]NA Vigil [address] [place] [address] Name: NovoFine Autocover [phone] (Wo rk) Pen Needle 30G X 8 [...] visit Patient no longer receiving care at [facility] Frontline: Route to Refill Wiza Admin Pool-PN (P [id number]) Shayy Haynes RN - 09/10/2021 9:52 AM CDT Further Assistance Needed on Refill from Coal Mine Inspector Patient is overdue for Office visit. An [...] visit: None [facility] [employer] Embedded Refills, Reference: [id number], 09/07/2021 1:41:05 PM CDT, Pool: MANUEL REFILL ([id number]) documented in this encounter Plan of Treatment Not on filedocumented as of this encounter Visit Diagnoses Not on filedocumented in this encounter Care Teams Chain Saw Mechanic Relationship Specialty Start Date End Date Gagandeep Michaud MD PCP - General 05/17/12 [address] [place] Hernandez [address] Vane Zarate Psychiatrist Psychiatry 03/22/12 [facility] Psychotherapist 08/04/17 [facility] Science Instructor 09/13/17 documented as of this encounter
--- OUTSIDE RECORDS SUMMARY | 2022-02-14 14:53 | XMS_ITS | Encounter Summary ---
:1970 Author Organization [employer] Address [address], [place] [address] Care Team Providers Name Role Phone Gagandeep Hinojosa MD Primary Care Provider Reason for Visit Reason Comments Patient Care Coordination Encounter Details Date Type Department Care Team Description 09/02/2020 Care Coord [facility] Deborah Rodrigues Patien t Care Phone Medicine PLASTIC SURGERY SPECIALIST Coordination [facility] [place] [address] [place] [address] [phone] Social History Tobacco Use Types Packs/Day Years [...] lengthy messages, stating that he was hypomanic. Rutsam also said that the insulin that was obtained by RN CC is no longer needed, as he has plenty at his assisted living and they will not use it. He requested we return it. Chacortaselamaid that he would not be coming up to the [facility] anytime soon, and that things in [place] are going well. Rustam denied any immediate concerns. Called Rustam back and left him a message, will wait to hear back from him. documented in this encounter Plan of Treatment Not on filedocumented as of this encounter Visit Diagnoses Diagnosis Health retirement, active care coordinati on - Primary documented in this encounter Care Teams Park Interpreter Relationship Specialty Start Date End Date Gagandeep Hinojosa MD PCP - General 05/17/[address] [place] [address] KAT[place]NA VELAZQUEZ [address] Vane Zarate Psychiatrist Psychiatry 03/22/12 [facility] Mental Health Psychotherapist 08/04/17 [facility] Document Reviewer 09/13/17 documented as of this encounter
--- OUTSIDE RECORDS SUMMARY | 2022-02-14 14:53 | XMS_ITS | Encounter Summary ---
:1970 Author Organization [facility] Address [address] [place] [address] Care Team Providers Name Role Phone Gagandeep Michaud MD Primary Care Provider Reason for Visit Reason Comments Refill NOVOFINE AUTOCOVER PEN NEEDL E 30G X 8 MM [Pharmacy Med Name: NovoFine Autocover Pen Needle 30G X 8 MM Miscellaneous] Encounter Details Date Type Department Care Team Description 09/28/2021 Refill [facility] Gagandeep Michaud, Refil l (NOVOFINE Medicine AUTOCOVER PEN NEEDLE 30G [address] X 8 MM [Pharmacy Med KAT[place]NA Vigil [address] [place] [address] Name: NovoFine Autocover [phone] (Wo rk) Pen Needle 30G X 8 [...] visit Patient no longer receiving care at [facility] PATIENT IS [facility] SEEN AT [facility] IN [place]. Frontline: Route to Refill Wizard Admin Pool-PN (P [id number]) Alyssa Porter RN - 10/02/2021 9:16 AM CDT Further Assistance Needed on Refill from Welcome Wagon Hostess Patient is overdue for Office visit. An [...] visit: None [facility] [employer] Embedded Refills, Reference: [id number], 09/28/2021 11:11:56 AM CDT, Pool: MANUEL REFILL ([id number]) documented in this encounter Plan of Treatment Not on filedocumented as of this encounter Visit Diagnoses Not on filedocumented in this encounter Care Teams Global Chief Creative Officer Relationship Specialty Start Date End Date Gagandeep Michaud MD PCP - General 05/17/[address] [place] [address] K[place] Gerber [address] Vane Zarate Psychiatrist Psychiatry 03/22/12 [facility] Psychotherapist 08/04/17 [facility] Civil Structural Designer 09/13/17 documented as of this encounter
--- OUTSIDE RECORDS SUMMARY | 2022-02-14 14:53 | XMS_ITS | Encounter Summary ---
:1970 Author Organization [facility] Address [address] [place] [address] Care Team Providers Name Role Phone Gagandeep Michaud MD Primary Care Provider Reason for Visit Reason Comments Refill metFORMIN (GLUCOPHAGE) 1000 MG tablet [Pharmacy Med Name: metFORMIN HCl 1000 MG Tablet]; lisinopril (ZEST RIL) 5 MG tablet [Pharmacy Med Name: Lisinopril 5 MG Tablet] Encounter Details Date Type Department Care Team Description 09/02/2020 Refill [place] [facility] Gagandeep Michaud, Refil l (metFORMIN Medicine MD (GLUCOPHAGE) [address] tablet [[place] [address] [place] [address] Name: metFORMIN HCl 1000 [phone] (Wo rk) MG Tablet]; lisinopril (ZESTRIL) 5 [...] MICHAUD) Next scheduled visit: None Powered by Hatsize by Havsjo Delikatesser, Reference: [id number], 09/02/2020 4:39:03 PM CDT, Pool:MANUEL MOORE ([id number]) documented in this encounter Plan of Treatment Not on filedocumented as of this encounter Visit Diagnoses Not on filedocumented in this encounter Care Teams Data Warehouse Specialist Relationship Specialty Start Date End Date Gagandeep Michaud MD PCP - General 05/17/12 1415 [facility] Joseelvira KAT[place]NA VELAZQUEZ [address] Vane Zarate Psychiatrist Psychiatry 03/22/12 [facility] Mental Health Psychotherapist 08/04/17 [facility] Features Editor 09/13/17 documented as of this encounter
--- OUTSIDE RECORDS SUMMARY | 2022-02-14 14:53 | XMS_ITS | Encounter Summary ---
:1970 Author Organization [facility] Address [address], [place] [address] Care Team Providers Name Role Phone Gagandeep Hinojosa MD Primary Care Provider Reason for Visit Reason Comments Patient Care Coordination Encounter Details Date Type Department Care Team Description 09/05/2020 Care Coord [place] [facility] Deborah Rodrigues Patien t Care Phone Medicine [facility] Coordination [facility] [address] [place] [address] [place] [address] [phone] Social History Tobacco Use Types Packs/Day Years [...] Rodrigues LICSW - 09/05/2020 1:18 PM CDT Behavioral Analyst - Phone Call Contact with: Rustam Reason for call: Care Coordination Discussion/actions: Received a phone call from Rustam. He stated that he is seeing a provider in [place] and is planning on following up there. He requested his Dermatology appointment be cancelled at this time. Rustam also said that the insulin samples that he received are not needed anymore. Rustam did agree to continue contact with care coordination, as he is planning on moving back to [facility] after the first of the year. No immediate concerns at this time. Shared plan: -Care Coordination follow-up as needed. Pt verbalized understanding and agreed with plan of care and follow up. documented in this encounter Plan of Treatment Not on filedocumented as of this encounter Visit Diagnoses Diagnosis Health nursing home, active care coordinati on - Primary documented in this encounter Care Teams Photovoltaic Fabrication Technician Relationship Specialty Start Date End Date Gagandeep Hinojosa MD PCP - General 05/17/12 1415 [facility] [place] [address] Vane Zarate Psychiatrist Psychiatry 03/22/12 [facility] Mental Health Psychotherapist 08/04/17 [facility] Outbound Telemarketing Representative 09/13/17 documented as of this encounter
--- OUTSIDE RECORDS SUMMARY | 2022-02-14 14:53 | XMS_ITS | Encounter Summary ---
:1970 Author Organization [facility] Address [address] [place] [address] Care Team Providers Name Role Phone Gagandeep Michaud MD Primary Care Provider Reason for Visit Reason Comments Refill metFORMIN (GLUCOPHAGE) 1000 MG tablet [Pharmacy Med Name: metFORMIN HCl 1000 MG Tablet]; lisinopril (ZEST RIL) 5 MG tablet [Pharmacy Med Name: Lisinopril 5 MG Tablet] Encounter Details Date Type Department Care Team Description 09/02/2020 Refill [place] [facility] Gagandeep Michaud, Refil l (metFORMIN Medicine MD (GLUCOPHAGE) [address] tablet [[place] [address] KAT[place]NA VELAZQUEZ [address] Name: metFORMIN HCl [phone] (Wo rk) MG Tablet]; lisinopril (ZESTRIL) 5 [...] MICHAUD) Next scheduled visit: None Powered by Oxxy by Fabbeo, Reference: [id number], 09/02/2020 1:17:40 PM CDT, Pool:MANUEL MOORE ([id number]) documented in this encounter Plan of Treatment Not on filedocumented as of this encounter Visit Diagnoses Not on filedocumented in this encounter Care Teams Main Entree Cook And Cashier Relationship Specialty Start Date End Date Gagandeep Michaud MD PCP - General 05/17/[address] [place], [place] [address]el[place] [address] Vane Zarate Psychiatrist Psychiatry 03/22/12 [facility] Mental Health Psychotherapist 08/04/17 [facility] Certified Legal Secretary Specialist 09/13/17 documented as of this encounter
--- OUTSIDE RECORDS SUMMARY | 2022-02-14 14:53 | XMS_ITS | Encounter Summary ---
:1970 Author Organization [facility] Address [address], [place] [address] Care Team Providers Name Role Phone Gagandeep Michaud MD Primary Care Provider Reason for Visit Reason Comments Refill Lisinopril and Metformin Encounter Details Date Type Department Care Team Description 09/02/2020 Refill [place] [facility] Gagandeep Michaud, Refil l (Lisinopril and Medicine Metformin) 1415 [facility] . [address] [place] [address] [place] [address] [phone] (Wo rk) Social History Tobacco Use Types [...] through Jose Danielina as he moved to [place] now. Will request refills through new provider. No other requests. Interface, Out Surescripts Prov Query - 09/05/2020 5:10 AM CDT The patient chart could not be locked at 09/05/2020 5:10 AM by Company in order to process this refill request. Please try re-routing to attempt to retry processing through [employer]. Interface, Out Surescripts Prov Query - 09/05/2020 5:09 AM CDT The patient chart could not be locked at 09/05/2020 5:09 AM by Company in order to process this refill request. Please try re-routing to attempt to retry processing through Company. Abbie Mitchell RN - 09/05/2020 5:09 AM [...] K: 5 mEq/L on 11/28/2018 Powered by FamilyID by IntelliChem, Reference: [id number], 09/02/2020 1:16:41 PM CDT, Pool:MANUEL REFILL ([id number]) metFORMIN (GLUCOPHAGE) 1000 MG tablet [Pharmacy Med [...] HBA1C: 11.3 % on 12/04/2019 Powered by Family[employer] by IntelliChem, Reference: [id number], 09/02/2020 1:16:41 PM CDT, Pool:MANUEL MOORE ([id number]) documented in this encounter Plan of Treatment Not on filedocumented as of this encounter Visit Diagnoses Not on filedocumented in this encounter Care Teams Brazer Furnace Relationship Specialty Start Date End Date Gagandeep Michaud MD PCP - General 05/17/[address] [place] [address] KATIANA Gerber [address] Vane Zarate Psychiatrist Psychiatry 03/22/12 [facility] Mental [facility] Psychotherapist 08/04/17 [facility] Senior Android Developer 09/13/17 documented as of this encounter
--- OUTSIDE RECORDS SUMMARY | 2022-02-14 14:53 | XMS_ITS | Clinical Summary ---
:1970 Author Organization [facility] Address [address] [address] Care Team Providers Name Role Phone Gagandeep [...] for each transition of care or referral. Splice Machine Allergies Active Allergy Reactions Severity Noted Date [...] scan blood 1 Each 0 12/04/2019 Active Psychologist Research Assistant (FREESTYLE TALAT 2 sugars per him manager READER SYSTM) instructions. DEVIIndications: Uncontrolled type [...] might be differe nt from the original. Information Technology Advisor: ERLIN Salas [phone] Care coordination focus: T2DM, financial resources Living situation: lives with spouse Important notes: SSDI, significant insul in resistance, regularly reaches Medicare Coverage Gap and cannot afford insulin Problem Noted Date Non-proliferative diabetic retinopathy 05/02/2019 Hyponatremia 01/16/2018 Tinea versicolor 07/18/2015 Tobacco use disorder 10/26/2012 Anemia 05/02/2012 Overview: Anemia, unspecified Microalbuminuria 02/04/2012 DE, old 09/16/2011 History of PTCA 09/16/2011 Overview: [...] Bipolar I disorder 09/15/2005 Overview: LW Onset: [id number] ; Bipolar I Dis Resolved Problems Problem Noted Date Resolved Date Tobacco abuse 02/24/2016 12/18/2018 ACS (acute coronary syndrome) 10/25/2012 02/16/2017 Mass on back 05/02/2012 10/25/2012 Health detention, active care coordination 03/22/2012 07/27/2018 Overview: Information Technology Advisor: JOSETTE Yip [phone] Care coordination focus: T2DM, financial resources Living situation: lives with spouse Important notes: SSDI, significant insul in resistance, uses Relion insulin, commonly reaches Medicare Cover age Gap See care plan under Chart Review > Misc Reports > AMB [facility] CARE PLAN REPORT Last Assessment & Plan: Information Technology Advisor: Lesly Rodrigues [facility] Care coordination focus: mental health Living situation: Lives with Important notes: case management star ting LFTs abnormal 02/02/2012 10/25/2012 S/P angioplasty with stent 05/26/2011 10/25/2012 Overview: Apr 2011 Plantar wart 05/26/2011 10/25/2012 Acute DE 05/01/2011 02/01/2012 Hypertriglyceridemia 12/11/2010 10/25/2012 Overview: >5000 [...] Influenza IIV4 (Quadrivalent) 0.5mL 01/07/2020, 01/16/2018, 02/16/2017, ([id number]) 02/24/2016, 03/27/2015, 01/16/2014, 03/14/2013 Influenza, Unspecified Formulation [...] Comments Blood Pressure 132/88 06/09/2020 4:43 PM PHYSICALLY IMPAIRED TEACHER Pulse 99 06/09/2020 4:43 PM PHYSICALLY IMPAIRED TEACHER Temperature 38.2 ??C (100.8 ??F) 05/02/2019 11:31 AM PHYSICALLY IMPAIRED TEACHER Respiratory Rate 16 03/07/2013 2:52 PM PHYSICALLY IMPAIRED TEACHER Oxygen Saturation 97% 10/27/2012 3:52 PM CDT Inhaled Oxygen Concentration - - Weight 88.9 kg (196 lb) 06/09/2020 4:43 PM PHYSICALLY IMPAIRED TEACHER Height 177.8 cm (5' 10) 12/04/2019 10:49 [...] Typ e / Group Dates MEDICARE MEDICARE [id number] 2009-Pres [facility] care ent SENIOR SENIOR [id number]-Pres [phone] [facility] ent [phone] SERVICES SERVICES SERVICES [address] [place] [address] JACLYN TALBOT [place] [id number] 2020-Pres [address] icaid ent [id number] [place] MILITARY EXCHANGE WIRELESS MANAGER [place] [address] Yessy Personal/Family Self 1970 [address] [phone] [place], [place] (Work) [phone] Yessy Personal/Family Self 1970 [address] [place] [address] [facility] [employer] [place] [facility] [address] [place] [phone] Advance Directives Latest Code Status on File Code Status Date Activated Date Inactivated Comments Full Code 10/25/2012 7:32 PM 10/27/2012 6:54 PM Full Code 05/14/2011 11:08 AM 05/14/2011 11:30 PM Full Code 04/30/2011 4:27 AM 05/01/2011 12:21 PM Care Teams Cartoon Designer Relationship Specialty Start Date End Date Gagandeep Hinojosa MD PCP - General 05/17/12 1415 [facility] [place] [address] Vane Zarate Psychiatrsamantha Psychiatry 03/22/12 [facility] Psychotherapist 08/04/17 [facility] Pay Station Collector 09/13/17
--- OUTSIDE RECORDS SUMMARY | 2022-02-14 14:53 | XMS_ITS | Encounter Summary ---
:1970 Author Organization [facility] Address [address] [place] [address] Care Team Providers Name Role Phone Gagandeep [...] Medicine MD succinate (TOPROL XL) [address] MG 24 hour release [place] Vigil [address] [place] [address] tablet [Pharmacy Med [phone] (Wo rk) Name: Metoprolol Succinate ER 50 [...] 1 TABLET BY MOUTH DAILY Interface, Out 4Less Query - 09/02/2020 1:16 PM CDT metoprolol [...] MICHAUD) Next scheduled visit: None Powered by Start[employer]ore by [employer], Reference: [id number], 09/02/2020 1:16:41 PM CDT, Pool:MANUEL REFILL ([id number]) documented in this encounter Plan of Treatment Not on filedocumented as of this encounter Visit Diagnoses Diagnosis Essential hypertension (HRC) Unspecified essential hypertension documented in this encounter Care Teams Charhouse Worker Relationship Specialty Start Date End Date Gagandeep Michaud MD PCP - General 05/17/12 7[address] [facility] KAT[place]NA Gerber 639059 Vane Zarate Psychiatrist Psychiatry 03/22/12 [facility] Mental Health Psychotherapist 08/04/17 [facility] Supervisor Asphalt Paving 09/13/17 documented as of this encounter
--- OUTSIDE RECORDS SUMMARY | 2022-02-14 14:53 | XMS_ITS | Clinical Summary ---
:1970 Author Organization [facility] [place] [address] Care Team Providers Name Role Phone Glenys Alcantar MD Unavailable [facility], [place] Unavailable Zhane Stanley DO Primary [...] 2 diabetes mellitus without complication, unspecified whether long-term insulin use (HC) polyethylene Drink up to [...] EVERY 22 tabletIndications: NIGHT AT CAD in osage artery BEDTIME FreeStyle Bharath 2 To be used to 1 Each 0 11/21/19 Active ReaderIndications: read blood 22 Type 2 diabetes sugars per mellitus with recyclable materials distributor's diabetic directions. polyneuropathy, with long-term current use [...] Telephone Shaqra, Zhane Анна, Refill Req uest ([place] DO Cough Drops - C samra, Ibuprofen [...] Name Administration Dates Next Due COVID-19 vaccine (Theme Travel News (TTN) 09/16/2020, 08/26/2020 30mcg/0.3mL) PF, MDV Hepatitis B [...] Zhane Stanley , DO [address] [place] [address] (Wo rk) Health Maintenance Due [...] note that all CT scans at this [facility] use dose modulation, iterative reconstruction and/or weight-b [...] ?? If you have questions, please contact [facility] health care provider. CT CHEST SCREENING LOW-DOSE [...] DISH . Upper abdomen: Unremarkable. Keila Diamond COMPRESS MACHINE OPERATOR CT from Last 3 Months Insurance Payer Benefit Plan / Subscriber ID Effective Dates Phone Addre ss Type Group MEDICARE PART A MEDICARE PART [id number] 1995-Presen ATTN: CLAIMS - HB USE ONLY A HB ONLY t [address] [facility] [address] MEDICARE PART B MEDICARE PART [id number] 2009-Presen ATTN: CLAIMS - HB USE ONLY B HB ONLY t [address] [facility] [address] MEDICARE - PB MEDICARE PB [id number] 2009-Presen ATTN : CLAIMS USE ONLY ONLY t [address] [facility] [address] MEDICARE PPS HC MEDICARE [id number] 1995-Presen [address] 2019 [address] [place] [address] [place] [id number] 2020-Presen [address] [place] [address] Advance Directives Documents on File Type Date Recorded Patient Dispensing Audiologist Explanati on POLST 08/20/2020 5:18 PM POLST [...] Code Status Discussion: Not Discussed Care Teams Gallery Or Museum Guide Relationship Specialty Start Date End Date Zhane Stanley DO PCP - General Internal Medicine 09/08/20 [address] [place] [address] Glenys Alcantar MD Endocrinology 05/03/17 [address] [place] [address] [facility], 05/21/20 [place] Samantha Minaya, Pharmacist Medication Pharmacology 10/21/20 PharmD Management [address] [place], [place] [address]
--- OUTSIDE RECORDS SUMMARY | 2022-02-14 14:53 | XMS_ITS | Encounter Summary ---
:1970 Author Organization [facility] Address [address], [place] [address] Care Team Providers Name Role Phone Gagandeep Hinojosa MD Primary Care Provider Reason for Visit Reason Comments Patient Care Coordination Encounter Details Date Type Department Care Team Description 05/05/2021 Care Coord [facility] Deborah Rodrigues Patien t Care Phone Medicine ASSISTANT DIRECTOR OF RESIDENCE LIFE Coordination [facility] [place] [address] [place] [address] [phone] Social History Tobacco Use Types Packs/Day Years [...] LICSW - 05/05/2021 1:25 PM CST Health Mcfp, Active Care Coordination resolved in patient???s Problem List. Reason: Patient moved out of the area Patient may be referred again in the future if needed. CLIMBING TEAM MEMBER documented in this encounter Plan of Treatment Not on filedocumented as of this encounter Visit Diagnoses Diagnosis Health chcf, active care coordinati on - Primary documented in this encounter Care Teams Career Development Coordinator/Teacher Relationship Specialty Start Date End Date Gagandeep Hinojosa MD PCP - General 05/17/12 [address] [facility] [place] [address] Vane Zarate Psychiatrist Psychiatry 03/22/12 [facility] Mental [facility] Psychotherapist 08/04/17 [facility] Motor Boss 09/13/17 documented as of this encounter
--- OUTSIDE RECORDS SUMMARY | 2022-02-14 14:53 | XMS_ITS | Encounter Summary ---
:1970 Author Organization [facility] Vegas[facility] Address [address] [place] [address] Care Team Providers Name Role Phone Gagandeep [...] Medicine MD succinate (TOPROL XL) [address] MG 24 hour release [place] Vigil [address] [place] [address] tablet [Pharmacy Med [phone] (Wo rk) Name: Metoprolol Succinate ER 50 [...] visit Patient no longer receiving care at [facility]; pt stated switched providers due to living in [place] now. Frontline: Route to Refill Wizard Admin Pool-PN (P [id number]) Shayy Haynes RN - 08/27/2021 2:22 PM CDT Further Assistance Needed on Refill from Nurse Supervisor Patient is overdue for Office visit. An [...] MICHAUD) Next scheduled visit: None Powered by [email or web address].iofinch by [employer], Reference: [id number], 08/25/2021 9:39:07 AM CDT, Pool:MANUEL LANDACHIP ([id number]) documented in this encounter Plan of Treatment Not on filedocumented as of this encounter Visit Diagnoses Diagnosis Essential hypertension (HRC) Unspecified essential hypertension documented in this encounter Care Teams Accounts Payable Administrator Relationship Specialty Start Date End Date Gagandeep Michaud MD PCP - General 05/17/12 1415 [facility] [address] Vane Zarate Psychiatrist Psychiatry 03/22/12 [facility] Health Psychotherapist 08/04/17 [facility] Drier Transfer Car Operator 09/13/17 documented as of this encounter
--- OUTSIDE RECORDS SUMMARY | 2022-02-14 14:53 | XMS_ITS | Encounter Summary ---
:1970 Author Organization [facility] Address [address] [place] [address] Care Team Providers Name Role Phone Gagandeep Hinojosa MD Primary Care Provider Reason for Visit Reason Comments FYI Encounter Details Date Type Department Care Team Description 09/19/2020 Telephone [facility] Gagandeep Hinojosa MD FYI 1415 [facility] . [address] [place] [address] [place] [id number] (Wo rk) Social History Tobacco Use Types [...] PCP. States that PCP can correspond with [facility] and he sees Dr. Zhane Stanley. If [...] on filedocumented in this encounter Care Teams Jr. Java Developer Relationship Specialty Start Date End Date Gagandeep Hinojosa MD PCP - General 05/17/12 1415 [place] [address] Vane Zarate Psychiatrist Psychiatry 03/22/12 [facility] Psychotherapist 08/04/17 [facility] Strap Stitcher 09/13/17 documented as of this encounter
--- OUTSIDE RECORDS SUMMARY | 2022-02-14 14:53 | XMS_ITS | Encounter Summary ---
:1970 Author Organization [facility] Center[facility] Address [address] [place] [address] Care Team Providers Name Role Phone Gagandeep Michaud MD Primary Care Provider Reason for Visit Reason Comments Refill metFORMIN (GLUCOPHAGE) 1000 MG tablet [Pharmacy Med Name: metFORMIN HCl 1000 MG Tablet]; lisinopril (ZEST RIL) 5 MG tablet [Pharmacy Med Name: Lisinopril 5 MG Tablet] Encounter Details Date Type Department Care Team Description 09/02/2020 Refill [facility] Gagandeep Michaud, Refil l (metFORMIN Medicine MD (GLUCOPHAGE) [address] tablet [[place] [address] [place] [address] Name: metFORMIN HCl 1000 [phone] (Wo rk) MG Tablet]; lisinopril (ZESTRIL) 5 [...] ENCOUNTER Routing to refill Pool Interface, Out [id number] Prov Query - 09/03/2020 12:43 PM CDT [...] MICHAUD) Next scheduled visit: None Powered by Flub[employer] by Hoard, Reference: [id number], 09/03/2020 12:43:21 PM CDT, Pool: PN REFILL WIZARD ADMIN ([id number]) documented in this encounter Plan of Treatment Not on filedocumented as of this encounter Visit Diagnoses Not on filedocumented in this encounter Care Teams Restaurant Culinary Manager Relationship Specialty Start Date End Date Gagandeep Michaud MD PCP - General 05/17/12 1415 [facility] Marlena GODOYAUGUSTINEKATIANA [address] Vane Zarate Psychiatrist Psychiatry 03/22/12 [facility] Health Psychotherapist 08/04/17 [facility] Autopsy Assistant 09/13/17 documented as of this encounter
--- OUTSIDE RECORDS SUMMARY | 2022-02-14 14:53 | XMS_ITS | Encounter Summary ---
:1970 Author Organization [employer] Address [address] [place] [address] Care Team Providers Name Role Phone Gagandeep Michaud MD Primary Care Provider Reason for Visit Reason Comments Refill Lasix Encounter Details Date Type Department Care Team Description 09/02/2020 Refill [facility] Gagandeep Michaud MD Refill (Lasix) 1415 [facility] . [address] [place] [address] [place], [place] [address] (Wo rk) Social History Tobacco Use Types [...] provider through [place] as he moved to [place] now. Will request refills through new provider. [...] TABLET BY MOUTH EVERY MORNING Interface, Out [employer] Prov Query - 09/02/2020 1:14 PM CDT [...] K: 5 mEq/L on 11/28/2018 Powered by WorkFlex Solutions by studentSN, Reference: [id number], 09/02/2020 1:14:54 PM CDT, Pool: MANUEL LANDAILL ([id number]) documented in this encounter Plan of Treatment Not on filedocumented as of this encounter Visit Diagnoses Not on filedocumented in this encounter Care Teams Fpga Engineer Relationship Specialty Start Date End Date Gagandeep Michaud MD PCP - General 05/17/12 1415 [facility] [place] Ger[place] [address] Vane Zarate Psychiatrist Psychiatry 03/22/12 [facility] Mental Health Psychotherapist 08/04/17 [facility] Mental Tester 09/13/17 documented as of this encounter
--- OUTSIDE RECORDS SUMMARY | 2022-02-14 14:54 | XMS_ITS | Encounter Summary ---
:1970 Author Organization [employer] Address [address], [place] [address] Care Team Providers Name Role Phone Gagandeep Michaud MD Primary Care Provider Reason for Visit Reason Onset Date Comments Refill 12/27/2019 risperiDONE (RISPERD AL) 3 MG tablet Encounter Details Date Type Department Care Team Description 12/27/2019 Refill [facility] Gagandeep Michaud, Refil l (risperiDONE Medicine MD (RISPERDAL) 3 MG tablet) 1415 [facility] . [address] [place] [address] [place], [place] [address] (Wo rk) Social History Tobacco Use Types [...] MICHAUD) Next scheduled visit: None Powered by [employer], Reference: [id number], 12/27/2019 10:12:03 AM CDT, Pool: MANUEL MOORE ([id number]) documented in this encounter Plan of Treatment Not on filedocumented as of this encounter Visit Diagnoses Not on filedocumented in this encounter Care Teams Waiter/Waitress Relationship Specialty Start Date End Date Gagandeep Michaud MD PCP - General 05/17/12 1415 [facility] [address] Vane Zarate Psychiatrist Psychiatry 03/22/12 [facility] Psychotherapist 08/04/17 [facility] Plastic Die Maker Apprentice 09/13/17 documented as of this encounter
--- OUTSIDE RECORDS SUMMARY | 2022-02-14 14:54 | XMS_ITS | Encounter Summary ---
:1970 Author Organization [facility] Address [address], [place] [address] Care Team Providers Name Role Phone Gagnadeep Hinojosa MD Primary Care Provider Reason for Visit Reason Comments FOLLOW-UP,DIABETES Encounter Details Date Type Department Care Team Description 01/02/2020 Care Coord Office Judy Luke RN FOLLOW-UP,DIABETES Visit Medicine [facility] [place] [address] [place] [phone] [address] Social History Tobacco Use Types Packs/Day Years [...] RN - 01/02/2020 1:00 PM CDT RN Furnace Attendant Visit Pt: Timur Krishnamurthy Referred by: Gagandeep [...] his . He plans on moving to [place] the end of January. Rustam is working with [facility]. I advised he apply for Section [...] be eligible to apply for assistance through [employer] PAP with Tresiba and Novolog. We will apply at our next visit. Blood Glucose Rustam is very happy to report he was approved for the Benefit Assistance Program to help with the cost of his FreeStyle Bharath sensors. He states a 3 month supply of sensors is due to arrive from [employer] today. I advised Rustam to review the [id number] instructions for application of a new sensor. [...] DM follow up on 02/26/20, apply for DemandPoints PAP. Rustam to call if symptoms of hypoglycemia or readings < 70 mg/dL. Rustam verbalized understanding and agreed with plan of care and follow up. documented in this encounter Plan of Treatment Not on filedocumented as of this encounter Visit Diagnoses Plan of Care - Judy Pittman RN - 01/02/2020 1:00 PM CDT Phone visit documented in this encounter Care Teams Admitting Interviewer Relationship Specialty Start Date End Date Gagandeep Hinojosa MD PCP - General 05/17/12 2985 [facility] [place] [address] Vane Zarate Psychiatrist Psychiatry 03/22/12 [facility] Mental [place] Psychotherapist 08/04/17 [facility] Quality Control Specialist 09/13/17 documented as of this encounter
--- OUTSIDE RECORDS SUMMARY | 2022-02-14 14:54 | XMS_ITS | Encounter Summary ---
:1970 Author Organization [employer] Address [address] [place] [address] Care Team Providers Name Role Phone Gagandeep Hinojosa MD Primary Care Provider Reason for Visit Reason Comments NATHAN HE Encounter Details Date Type Department Care Team Description 01/07/2020 Office Visit [facility] Gagandeep Hinojosa g enital Medicine MD Joanne (Primary Dx) 1415 [facility] . [address] [place] [address] Ave [phone] [place], [place] [address] Social History Tobacco Use [...] acuminatum documented in this encounter Care Teams Credit Card Analyst Relationship Specialty Start Date End Date Gagandeep Hinojosa MD PCP - General 05/17/12 1415 [place] [address] Vane Zarate Psychiatrist Psychiatry 03/22/12 [facility] Psychotherapist 08/04/17 [facility] Operations Logistics Analyst 09/13/17 documented as of this encounter
--- OUTSIDE RECORDS SUMMARY | 2022-02-14 14:54 | XMS_ITS | Encounter Summary ---
:1970 Author Organization [employer] Address [address] [place] [address] Care Team Providers Name Role Phone Gagandeep Michaud MD Primary Care Provider Reason for Visit Reason Onset Date Comments Refill 07/09/2020 insulin aspart (YOEL LOG) 100 UNIT/ML pen injection Encounter Details Date Type Department Care Team Description 07/09/2020 Refill Gagandeep Storm, Rochelle l (insulin aspart Medicine (NOVOLOG) 100 UNIT/ML [address] pen injection) [place] Vig[place] [address] [place] VIGIL 299269 (Wo rk) Social History Tobacco Use Types [...] last 12 months and Please advise if halfway supply is appropriate Last qualifying visit: 06/09/2020 [...] HBA1C: 11.3 % on 12/04/2019 Powered by aCommerce, Reference: [id number], 07/09/2020 11:39:43 AM CDT, Pool: PN REFILL WIZARD ADMIN ([id number]) Sruthi Ledesma - 07/09/2020 11:39 AM CDT [...] refills) Please route to: Refill Pool (P [id number]) [place] FP Pool [place] Patients ONLY (P [id number]) [facility] PEDSS Dr. Laguerre ONLY (P [id number]) documented in this encounter Plan of Treatment Not on filedocumented as of this encounter Visit Diagnoses Diagnosis Uncontrolled type 2 diabetes mellitus wi th hyperglycemia (HRC) documented in this encounter Care Teams Phlebotomy Support Tech Relationship Specialty Start Date End Date Gagandeep Michaud MD PCP - General 05/17/12 1415 [facility] [place] [address] Vane Zarate Psychiatrist Psychiatry 03/22/12 [facility] Psychotherapist 08/04/17 [facility] Drug Discovery Informatics Specialist 09/13/17 documented as of this encounter
--- OUTSIDE RECORDS SUMMARY | 2022-02-14 14:54 | XMS_ITS | Encounter Summary ---
:1970 Author Organization [employer] Address [address] [place] [address] Care Team Providers Name Role Phone Gagandeep Hinojosa MD Primary Care Provider Reason for Visit Procedure/Equipment (Routine) - Incomplete Specialty Diagnoses / Procedures Referred By Contact Refer red To Contact Diagnoses Pain of toe of right foot Gagandeep Hinojosa MD Procedures XR Toe Rt 2nd [address] [place] [address] Referral ID Status Reason Start Date Expiration Date Visits V isits Requested Authorized [id number] Incomplete 03/17/2020 06/16/2021 1 1 Encounter Details Date Type Department Care Team Description 03/17/2020 Ancillary Procedure [facility] Gagandeep Hinojosa Pain of toe of right [address] Rubio MD foot [address]. [address] [place] [address] Ave [phone] [place] [address] Social History Tobacco Use Types Packs/Day Years [...] of righ t Results for this VIEWS WARP DYEING VAT TENDER foot procedure are i n the results section. documented in this encounter Results XR Toe Rt 2nd 3 Views (03/17/2020 1:45 PM WARP DYEING VAT TENDER) Anatomical Region Laterality Modality Lower Extremity, Foot, Foot & Ankle Digi ora Radiography Specimen (Source) Anatomical Collection Method Collection Time Re ceived Time Location / / Volume Laterality 03/17/2020 1:34 PM WARP DYEING VAT TENDER Impressions 03/17/2020 2:23 PM WARP DYEING VAT TENDER COMPARISON: ??None. FINDINGS: ??Question impacted second pro [...] limb documented in this encounter Care Teams Smeller Relationship Specialty Start Date End Date Gagandeep Hinojosa MD PCP - General 05/17/12 1415 [place] [address] Vane Zarate Psychiatrsamantha Psychiatry 03/22/12 [facility] Mental Health Psychotherapist 08/04/17 [facility] Rn Surgery 09/13/17 documented as of this encounter
--- OUTSIDE RECORDS SUMMARY | 2022-02-14 14:54 | XMS_ITS | Encounter Summary ---
:1970 [address] [facility] [address] Address [address] [place] [address] Care Team Providers Name Role Phone Gagandeep Hinojosa MD Primary Care Provider Reason for Referral Procedure/Equipment (Routine) - Closed Specialty Diagnoses / Procedures Referred By Contact Refer red To Contact Diagnoses Pain of toe of right foot Closed nondisplaced fracture of proximal phalanx of lesser toe of right foot, initial encounter Gagandeep Hinojosa MD Procedures Walking Boot [address] [place] [address] Referral ID Status Reason Start Date Expiration Date Visits Requ ested Visits Authorized [id number] Closed 03/17/2020 06/16/2021 1 1 RVISOR NUCLEAR MEDICINE Procedure/Equipment (Routine) - Incomplete Specialty Diagnoses / Procedures Referred By Contact Refer red To Contact Diagnoses Pain of toe of right foot Gagandeep Hinojosa MD Procedures XR Toe Rt 2nd 3 Views [address] [place] [address] Referral ID Status Reason Start Date Expiration Date Visits V isits Requested Authorized [id number] Incomplete 03/17/2020 06/16/2021 1 1 RVISOR NUCLEAR MEDICINE Reason for Visit Reason Comments Diabetes check R foot fell a week ago Encounter Details Date Type Department Care Team Description 03/17/2020 Office Visit Gagandeep Storm Pain of toe of right foot (Primary Dx); Romario Rubio MD Closed nondisplaced fracture of proximal phalanx of lesser toe of right foot, initial encounter; [address] Uncontro lled type 2 diabetes mellitus with complication, with long-term current use of insulin (HRC); [address] Diabetic polyneuropathy associated with type 2 diabetes mellitus ([facility]); [place] [address] [place] Tobacco use disorder [phone] [id number] Social History Tobacco Use Types Packs/Day Years [...] Comments Blood Pressure 123/77 03/17/2020 12:59 PM SUPERVISOR NUCLEAR MEDICINE Pulse 81 03/17/2020 12:59 PM SUPERVISOR NUCLEAR MEDICINE Temperature - - Respiratory Rate - - Oxygen Saturation - - Inhaled Oxygen Concentration - - Weight 88.5 kg (195 lb) 03/17/2020 12:59 PM SUPERVISOR NUCLEAR MEDICINE Height - - Body Mass Index 27.98 [...] Date Noted ??? Non-proliferative diabetic retinopathy ([facility]) 05/02/2019 ??? Hyponatremia 01/16/2018 ??? Tinea versicolor 07/18/2015 ??? Tobacco use disorder ([facility]) 10/26/2012 ??? Anemia 05/02/2012 Overview Note: Anemia, unspecified ??? Microalbuminuria 02/04/2012 ??? VA, old ([facility]) 09/16/2011 ??? History of PTCA 09/16/2011 Overview Note: History of PTCA 04/2011 BMS RCA ??? Obesity, Class I, BMI 30-34.9 ([facility]) 09/16/2011 Overview Note: Body mass index is 31.16 kg/(m^2). ??? Hyperlipidemia with target LDL less than 70 ([facility]) 06/08/2011 Overview Note: Hyperlipidemia LDL goal < 70 ??? ASHD (arteriosclerotic heart disease) ([facility]) 05/04/2011 ??? Erectile dysfunction 01/22/2011 Overview Note: side effect Risperdal ??? Type 2 diabetes mellitus, uncontrolled ([facility]) 12/11/2010 Overview Note: Type II or unspecified type diabetes mellitus without mention of complication, uncontrolled ([facility]) ??? Dermatophytosis of body 09/04/2010 Class: Historical Overview Note: Tinea Corporis ??? Coronary atherosclerosis ([facility]) 12/22/2009 Overview Note: LW Modifier: mod RCA, negative nuclear stress test ; CAD ??? Nonspecific abnormal results of liver function study 12/22/2009 Overview Note: Liver Function Tests Abnormal ??? Bipolar I disorder ([facility]) 09/15/2005 Overview Note: LW Onset: ; Bipolar [...] 360 Tablet 3 ??? Continuous Blood Gluc Charging Manipulator (C3 MetricsSTYLE TALAT 2 READER SYSTM) ADÁN Use to scan blood sugars per technical customer support specialist instructions. 1 Each 0 ??? Continuous Blood Gluc Sensor (FREESTYLE TALAT 14 DAY SENSOR) [facility] Use as directed. Change every 14 days. [...] 1 Tablet by mouth. 01/16/2018: [facility] [employer] [facility] Sig: Take 1 tablet by mouth [...] complication, with long-term current use of insulin ([facility]) E11.8 E11.65 Z79.4 4. Diabetic polyneuropathy associated with type 2 diabetes mellitus ([facility]) E11.42 5. Tobacco use disorder ([facility]) F17.200 Given his neuropathy and the clinically suggestive signs of fracture, I would like to place him in acam walker. He will follow-up in 2 weeks Follow-up: 2 weeks RVISOR NUCLEAR MEDICINE documented in this encounter Plan of Treatment Not on filedocumented as of this encounter Results XR Toe Rt 2nd 3 Views (03/17/2020 1:45 PM SUPERVISOR NUCLEAR MEDICINE) Anatomical Region Laterality Modality Lower Extremity, Foot, Foot & Ankle Digi ora Radiography Specimen (Source) Anatomical Collection Method Collection Time Re ceived Time Location / / Volume Laterality 03/17/2020 1:34 PM SUPERVISOR NUCLEAR MEDICINE Impressions 03/17/2020 2:23 PM SUPERVISOR NUCLEAR MEDICINE COMPARISON: ??None. FINDINGS: ??Question impacted second pro [...] limb documented in this encounter Care Teams Industrial Specialist Relationship Specialty Start Date End Date Gagandeep Hinojosa MD PCP - General 05/17/12 [address] [place] [address] Vane Zarate Psychiatrist Psychiatry 03/22/12 [facility] Mental Health Psychotherapist 08/04/17 [facility] Paper Products Supervisor 09/13/17 documented as of this encounter
--- OUTSIDE RECORDS SUMMARY | 2022-02-14 14:54 | XMS_ITS | Encounter Summary ---
:1970 Author Organization [employer] Address [address], [place] [address] Care Team Providers Name Role Phone Gagandeep Hinojosa MD Primary Care Provider Reason for Visit Reason Comments Post Hospital Discharge Follow Up ACO Post DC Encounter Details Date Type Department Care Team Description 06/20/2020 Telephone [place] [facility] Gagandeep Hinojosa, Post Hospital Discharge Medicine MD Follow Up (ACO Post DC) [address] [facility] . [address] [place] [address] [place] [address] [phone] (Wo rk) Social History Tobacco Use Types [...] for details. Rustam has been working with [facility] Care Coordination. Pt shared that he has concerns regarding housing, he will no longer have as of July 22, 2020. He has tried to get into [employer] housing but this has not worked out. [...] treat chronic groin growths with liquid nitrogen. Battery Filler will notify Care Coordination and PCP of Pt's questions. RUNNER documented in this encounter Plan of Treatment Not on filedocumented as of this encounter Visit Diagnoses Not on filedocumented in this encounter Care Teams Wire Brusher Relationship Specialty Start Date End Date Gagandeep Hinojosa MD PCP - General 05/17/[address] [place], [place] [address] [address] Vane Zarate Psychiatrist Psychiatry 03/22/12 [facility] Health Psychotherapist 08/04/17 [facility] Dairy Tester 09/13/17 documented as of this encounter
--- OUTSIDE RECORDS SUMMARY | 2022-02-14 14:54 | XMS_ITS | Encounter Summary ---
:1970 Author Organization [facility] Address [address], [place] [address] Care Team Providers Name Role Phone Gagandeep Hinojosa MD Primary Care Provider Reason for Visit Reason Comments Appointment Encounter Details Date Type Department Care Team Description 01/01/2020 Telephone [place] Gagandeep Hinojosa MD Appointment [address] [facility] . [address] [facility] [place] [address] [place] [address] [phone] (Wo rk) Social History Tobacco Use Types [...] message for patient to return call to [phone]. Carolyn Johnson - 01/01/2020 3:58 PM CDT [...] on filedocumented in this encounter Care Teams Green Tire Inspector Relationship Specialty Start Date End Date Gagandeep Hinojosa MD PCP - General 05/17/[address] [place] [address] [place] [address] Vane Zarate Psychiatrist Psychiatry 03/22/12 [facility] Psychotherapist 08/04/17 [facility] Assistant Product Manager 09/13/17 documented as of this encounter
--- OUTSIDE RECORDS SUMMARY | 2022-02-14 14:54 | XMS_ITS | Encounter Summary ---
:1970 Author Organization [employer] Address [address] [address] Care Team Providers Name Role Phone Gagandeep Hinojosa MD Primary Care Provider Reason for Visit Reason Comments Patient Care Coordination Encounter Details Date Type Department Care Team Description 05/30/2020 Care Coord [place] [facility] Deborah Rodrigues Patient C are Office Visit Medicine A, [facility] Coordination [address] [place] [address] [place], [place] [phone] [address] Social History Tobacco Use Types Packs/Day Years [...] of this encounter Progress Notes Deborah Rodrigues [facility] - 05/30/2020 9:00 AM CST Care Coordination Visit Pt: Timur Krishnamurthy Reason for visit: Care Coordination Timur was seen alone. Discussion/actions: Met with Rustam for a scheduled care coordination appointment, as JOSETTE NIEVES is out of the clinic today. Completed his [employer] Assistance application and his [employer] application. I sent the FA application to the [employer] and mailed in the Medicare [employer] application,with [...] to move to an IRTS facility in [place]. Rustam deniedneeding anything else at this time and will call back if he something comes up. No thoughts of suicide right now. Patient received verbal instructions and written materials tailored to his or her preferred method of learning. Literacy level assessed (as appropriate). Interventions, including teach back, used to verify understanding. Patient Goal(s): 1. I want to be approved for [facility] and [employer]. Goal: in process 2. I want to move to an IRTS. Goal: in process SHARED PLAN: -PCP appointment 06/02 at 11:20. -RN Care Coordination appointment 06/12 at 11:00. Pt verbalized understanding and agreed with plan of care and follow up. ITY ENGINEER documented in this encounter Plan of Treatment Not on filedocumented as of this encounter Visit Diagnoses Diagnosis Complex care coordination - Primary documented in this encounter Care Teams Commercial Intelligence Manager Relationship Specialty Start Date End Date Gagandeep Hinojosa MD PCP - General 05/17/12 [address] [facility] [place] [address] Vane Zarate Psychiatrist Psychiatry 03/22/12 [facility] Mental [facility] Psychotherapist 08/04/17 [facility] CM Hydrographic Surveyor 09/13/17 documented as of this encounter
--- OUTSIDE RECORDS SUMMARY | 2022-02-14 14:54 | XMS_ITS | Encounter Summary ---
:1970 Author Organization [facility] Address [address] [place] [address] Care Team Providers Name Role Phone Gagandeep Hinojosa MD Primary Care Provider Reason for Visit Reason Comments QUESTIONS, GENERAL Encounter Details Date Type Department Care Team Description 05/10/2020 Telephone [place] [facility] Gagandeep Hinojosa, QUESTIONS, GENERAL [address] [facility] [address] [place] [address] [place] [address] (Wo rk) Social History Tobacco [...] . Provided pt with number as requested. HT INSTRUCTOR documented in this encounter Plan of Treatment Not on filedocumented as of this encounter Visit Diagnoses Not on filedocumented in this encounter Care Teams Top Dyeing Machine Loader Relationship Specialty Start Date End Date Gagandeep Hinojosa MD PCP - General 05/17/12 [address] [facility] [place] [address] Vane Zarate Psychiatrist Psychiatry 03/22/12 [facility] Mental Health Psychotherapist 08/04/17 [facility] Inspector Hairspring 09/13/17 documented as of this encounter
--- OUTSIDE RECORDS SUMMARY | 2022-02-14 14:54 | XMS_ITS | Encounter Summary ---
:1970 Author Organization [employer] Address [address], [place] [address] Care Team Providers Name Role Phone Gagandeep Hinojosa MD Primary Care Provider Reason for Referral (Routine) - Closed Specialty Diagnoses / Procedures Referred By Contact Refer red To Contact Diagnoses Other chest pain Kailash Green DO Procedures Outreach Nuclear Study [address] [place] [address] Referral ID Status Reason Start Date Expiration Date Visits Requ ested Visits Authorized [id number] Closed 06/19/2020 09/18/2021 1 1 RED CAR DRIVER Encounter Details Date Type Department Care Team Description 06/19/2020 Hospital Encounter Heart & Vascular Other chest pain Center Nuclear (Primary Dx) Cardiology [address] [facility] [place] [address] Social History Tobacco Use Types Packs/Day Years [...] to scan blood 1 Each 0 020 Engraving Operator (FREESTYLE sugars per TALAT 2 READER [employer]) medical van driver DEVIIndications: instructions. Uncontrolled type 2 diabetes mellitus [...] Notes Kim Guadarrama - 06/19/2020 12:00 PM ARMORED CAR DRIVER Encounter addended by: Kim Guadarrama on: 06/27/2020 7:07 AM Actions taken: Clinical Note Signed, Result filed RED CAR DRIVER documented in this encounter Procedure Notes Kim Guadarrama - 06/19/2020 12:00 PM CSTAssociated Order(s): OUTREACH NUCLEAR STUDY Results NM CARDIAC MPI STRESS TEST ( (Order [id number]) STRESS TEST PHARMACOLOGICAL ( (Order [id number]) Original Order Diagnosis: Chest pain [R07.9 (ICD-10-CM)] Chest pain, normal EKG Chest pain, normal EKG Reading Provider(s) Sonia Jara MD PACs images are not viewable in Smart Checkout Link. See text report below. STRESS TEST PHARMACOLOGICAL Order: [id number] Status: Final result Visible to patient: No (not released) Next appt: None Dx: Chest pain Linked study orders: NM CARDIAC MPI STRESS TEST (Order: [id number]) Details Reading Physician Reading Date Result Priority Sonia Jara MD [phone] 06/19/2020 Routine Narrative & Impression STUDY: LEXISCAN NUCLEAR STRESS TEST, 06/19/2020. ORDERING DIAGNOSIS: Chest pain. This is a rest/stress single-isotope, single-photon emission computed tomography imaging performed using pharmacologic stress with gated SPECT imaging performed for the evaluation of known coronary artery disease in a 50-year-old male with risk factors of tobacco use, hyperlipidemia, hypertension, anddiabetes with past history of PA and percutaneous intervention who now presents with [...] patient. Patient Information Patient Name Timur Krishnamurthy ([id number]) Sex Male RED CAR DRIVER documented in this encounter Plan of Treatment Not on filedocumented as of this encounter Procedures Procedure Name Priority Date/Time Associated Diagnosis Comme nts OUTREACH NUCLEAR Routine 06/19/2020 12:00 PM Other chest pain Results for this STUDY ARMORED CAR DRIVER procedure are i n the results section. documented in this encounter Results Outreach Nuclear Study (06/19/2020 12:00 PM ARMORED CAR DRIVER) Narrative POCT - 06/19/2020 12:00 PM ARMORED CAR DRIVER Kim Guadarrama ? 06/27/2020 ??7:06 AM Results NM CARDIAC MPI STRESS TEST ( [id number]) (Order [id number]) STRESS TEST PHARMACOLOGICAL (Accession A [id number]) (Order [id number]) Original Order Diagnosis: Chest pain [R0 7.9 (ICD-10-CM)] Chest pain, normal EKG Chest pain, normal EKG Reading Provider(s) Sonia Jara MD PACs images are not viewable in Smart Checkout Link. See text report below. STRESS TEST PHARMACOLOGICAL Order: [id number] Status: Final result Visible to patient: No (not released) Next appt: None Dx: Chest pain Linked study orders: NM CARDIAC MPI STRE SS TEST (Order: [id number]) Details Reading Physician Reading Date Result Pr willdeepak Sonia Jara MD [phone] 06/19/2020 Routine ?? Narrative & Impression ?? [...] nayana, and diabetes with past history of PA and percutaneous inte rvention who now presents [...] result [facility]. Patient Information Patient Name Timur Krishnamurthy ([id number]) Sex Male Procedure Note July - 06/19/2020 12:00 PM CST Results NM CARDIAC MPI STRESS TEST ( [id number]) (Order [id number]) STRESS TEST PHARMACOLOGICAL (Accession A [id number]) (Order [id number]) Original Order Diagnosis: Chest pain [R0 7.9 (ICD-10-CM)] Chest pain, normal EKG Chest pain, normal EKG Reading Provider(s) Sonia Jara MD PACs images are not viewable in Smart Checkout Link. See text report below. STRESS TEST PHARMACOLOGICAL Order: [id number] Status: Final result Visible to patient: No (not released) Next appt: None Dx: Chest pain Linked study orders: NM CARDIAC MPI STRE SS TEST (Order: [id number]) Details Reading Physician Reading Date Result Pr Sonia Gilbert MD [phone] 06/19/2020 Routine Narrative & Impression STUDY: LEXISCAN NUCLEAR STRESS TEST, . ORDERING DIAGNOSIS: Chest pain. This is a rest/stress single-isotope, si ngle-photon emission computed tomography imaging performed using pharmacologic stress with gated SPECT imaging performed for the evaluation of known coronary artery disease in a 50-year-old male with risk factors of to bacco use, hyperlipidemia, hypertension, and diabetes with past history of PA and percutaneous intervention who now presents with [...] humphrey. Patient Information Patient Name Timur Krishnamurthy ([id number]) Sex Male Kailash Green DO PN CARDIAC SERVICES ORDERABL ES Performing Organization Address City/State/ZIP Code Phon e Number POCT documented in this encounter Visit Diagnoses Diagnosis Other chest pain - Primary documented in this encounter Care Teams Headhunter Relationship Specialty Start Date End Date Gagandeep Hinojosa MD PCP - General 05/17/12 [address] [facility] [place] [id number] Vane Zarate Psychiatrsamantha Psychiatry 03/22/12 [facility] Psychotherapist 08/04/17 [facility] Dish Up Person 09/13/17 documented as of this encounter
--- OUTSIDE RECORDS SUMMARY | 2022-02-14 14:54 | XMS_ITS | Encounter Summary ---
:1970 Author Organization [employer] Address [address] [place] [address] Care Team Providers Name Role Phone Gagandeep Hinojosa MD Primary Care Provider Reason for Visit Reason Comments Refill ONETOUCH DELICA lancets; blo od glucose (ONE TOUCH ULTRA BLUE) test strip; insulin regular (NOVOLIN R) 100 UNIT/ML injection Encounter Details Date Type Department Care Team Description 06/05/2020 Refill Gagandeep Storm, Refil l (ONETOUCH DELICA Medicine lancets; blood glucose [address] (ONE TOUCH ULTRA BLUE) [place] [address] [place] [address] test strip; insulin [phone] (Wo rk) regular (NOVOLIN R) 100 UNIT/ML [...] (Novolin R) And Insulin needles and syringes. CIATE PROFESSOR OF THEATRE Marga Leyva - 06/06/2020 9:24 AM CST [...] controlled refills) Please route to: Triage Pool CIATE PROFESSOR OF THEATRE Interface, Out Surescripts Prov Query - 06/05/2020 [...] scheduled visit: None Age: 50 Powered by [employer], Reference: [id number], 06/05/2020 10:10:24 AM Jaxon GRANGER: REINA REFILL WIZARD ADMIN ([id number]) blood glucose (ONE TOUCH ULTRA BLUE) test [...] scheduled visit: None Age: 50 Powered by [employer], Reference: [id number], 06/05/2020 10:10:24 AM Jaxon GRANGER: PN REFILL WIZARD ADMIN ([id number]) insulin regular (NOVOLIN R) 100 UNIT/ML injection [...] HBA1C: 11.3 % on 12/04/2019 Powered by [employer], Reference: [id number], 06/05/2020 10:10:24 AM ASSOCIATE PROFESSOR OF THEATRE Pool: PN REFILL WIZARD ADMIN ([id number]) Herlinda Smith - 06/05/2020 10:07 AM CST [...] refills) Please route to: Refill Pool (P [id number]) [place] FP Pool [place] Patients ONLY (P [id number]) SAMMI Laguerre ONLY (P [id number]) CIATE PROFESSOR OF THEATRE documented in this encounter Plan of Treatment [...] insulin documented in this encounter Care Teams Mud Analysis Supervisor Relationship Specialty Start Date End Date Gagandeep Hinojosa MD PCP - General 05/17/12 14[address] [facility] [place] [address] Vane Zarate Psychiatrist Psychiatry 03/22/12 [facility] Mental Health Psychotherapist 08/04/17 [facility] Precision Structural Metal Fitter 09/13/17 documented as of this encounter
--- OUTSIDE RECORDS SUMMARY | 2022-02-14 14:54 | XMS_ITS | Encounter Summary ---
:1970 Author Organization [employer] Address [address], [place] [address] Care Team Providers Name Role Phone Gagandeep Hinojosa MD Primary Care Provider Reason for Visit Reason Comments CANCEL APPOINTMENT Encounter Details Date Type Department Care Team Description 06/12/2020 Care Coord Phone Judy Luke R N CANCEL APPOINTMENT [facility] [address] [place] [address] [place] [address] [phone] Social History Tobacco Use Types Packs/Day Years [...] Pittman RN - 06/12/2020 9:38 AM CST Information Technology Teacher - Phone Call Contact with: Rustam [...] Rustam is working with his Mental Health Welding Operator to find new housing. Rustam states he has not received his shipment from [employer], but notes he does not need any insulin at this time. He was given a significant supply of insulin following his recent stay at the crisis center. Shared plan: Canceled appt for today and will reschedule at a later date. Rustam verbalized understanding and agreed with plan of care and follow up. A MARKETING MANAGER documented in this encounter Plan of Treatment Not on filedocumented as of this encounter Visit Diagnoses Not on filedocumented in this encounter Care Teams Screen Making Technician Relationship Specialty Start Date End Date Gagandeep Hinojosa MD PCP - General 05/17/[address] [place] [address] [place] [address] Vane Zarate Psychiatrist Psychiatry 03/22/12 [facility] Mental Health Psychotherapist 08/04/17 [facility] Welding Operator 09/13/17 documented as of this encounter
--- OUTSIDE RECORDS SUMMARY | 2022-02-14 14:54 | XMS_ITS | Encounter Summary ---
:1970 Author Organization [facility] Address [address], [place] [address] Care Team Providers Name Role Phone Gagandeep Hinojosa MD Primary Care Provider Reason for Visit Reason Comments Patient Care Coordination Encounter Details Date Type Department Care Team Description 06/24/2020 Care Coord [facility] Deborah Rodrigues Patien t Care Phone Medicine [facility] Coordination [facility] [address] [place] [address] [phone] Social History Tobacco Use Types Packs/Day Years [...] routed to JOSETTE CC as an FYI CIPAL EMBEDDED SOFTWARE ENGINEER documented in this encounter Plan of Treatment Not on filedocumented as of this encounter Visit Diagnoses Diagnosis Complex care coordination - Primary documented in this encounter Care Teams Band Builder Relationship Specialty Start Date End Date Gagandeep Hinojosa MD PCP - General 05/17/12 [address] [facility] [place] [address] Vane Zarate Psychiatrist Psychiatry 03/22/12 [facility] Mental Health Psychotherapist 08/04/17 [facility] Adoption Social Worker 09/13/17 documented as of this encounter
--- OUTSIDE RECORDS SUMMARY | 2022-02-14 14:54 | XMS_ITS | Encounter Summary ---
:1970 Author Organization [employer] Address [address] [place] [address] Care Team Providers Name Role Phone Gagandeep Hinojosa MD Primary Care Provider Reason for Visit Reason Onset Date Comments Follow-up Phone Visit 01/30/2020 Encounter Details Date Type Department Care Team Description 01/30/2020 Telemedicine [facility] Gagandeep Hinojosa (Primary Dx) Romario Rubio MD [address] [place] [address] Ave [phone] [place] [address] Social History Tobacco Use [...] unspecified documented in this encounter Care Teams Hospital Nurse Liaison Relationship Specialty Start Date End Date Gagandeep Hinojosa MD PCP - General 05/17/12 [facility]5 [place] [address] Vane Zarate Psychiatrist Psychiatry 03/22/12 [facility] Psychotherapist 08/04/17 [facility] Mammalogist 09/13/17 documented as of this encounter
--- OUTSIDE RECORDS SUMMARY | 2022-02-14 14:54 | XMS_ITS | Encounter Summary ---
:1970 Author Organization [employer] Address [address], [place] [address] Care Team Providers Name Role Phone Gagandeep Hinojosa MD Primary Care Provider Reason for Visit Reason Comments FOLLOW-UP,DIABETES Encounter Details Date Type Department Care Team Description 04/01/2020 Care Coord Phone Judy Luke R N FOLLOW-UP,DIABETES Medicine [address] [place] [address] . [place] [address] [place] [address] [phone] Social History Tobacco Use Types Packs/Day Years [...] RN - 04/01/2020 1:18 PM CST RN Body Trimmer Upholsterer - Diabetes Follow-Up Current diabetes medication [...] insurance, but would apply to providers within [place], and would eliminate his responsibility for the [...] order to apply for [employer] and [place], as well as left these items on his voicemail because Rustam didn't have any way to write them down, including: ?? Bharath supplies ?? Base Wad Operator Adjuster's License ?? Insurance cards, Medicare AND Part [...] up on 04/08/20, bring documents above. RN Body Trimmer Upholsterer, as needed. Call if sx of hypoglycemia or glucose readings < 70 mg/dL. Rustam verbalized understanding and agreed with plan of care and follow up. TRANSITIONS MANAGER documented in this encounter Plan of Treatment Not on filedocumented as of this encounter Visit Diagnoses Diagnosis Uncontrolled type 2 diabetes mellitus wi th diabetic polyneuropathy, with long-term current use of insulin Uncontrolled type 2 diabetes mellitus wi th microalbuminuria, with long-term current use of insulin Plan of Care - Judy Pittman, JOSETTE - 04/01/2020 1:00 PM CST Phone visit TRANSITIONS MANAGER documented in this encounter Care Teams Skidway Worker Relationship Specialty Start Date End Date Gagandeep Hinojosa MD PCP - General 05/17/12 14[address] [facility] [place] [address] Vane Zarate Psychiatrist Psychiatry 03/22/12 [facility] Psychotherapist 08/04/17 [facility] Glove Cuffer 09/13/17 documented as of this encounter
--- OUTSIDE RECORDS SUMMARY | 2022-02-14 14:54 | XMS_ITS | Encounter Summary ---
:1970 Author Organization [facility] Address [address] [place] [address] Care Team Providers Name Role Phone Gagandeep Michaud MD Primary Care Provider Reason for Visit Reason Onset Date Comments Refill 01/09/2020 metFORMIN (GLUCOPHAG E) 500 MG tablet Encounter Details Date Type Department Care Team Description 01/09/2020 Refill [facility] Gagandeep Michaud, Refil l (metFORMIN Medicine (GLUCOPHAGE) [address] tablet) [place] [address] [place], [place] [id number] (Wo rk) Social History Tobacco Use Types [...] times a day with meals. Interface, Out [employer] Prov Query - 01/09/2020 4:06 PM CDT [...] HBA1C: 11.3 % on 12/04/2019 Powered by [employer], Reference: [id number], 01/09/2020 4:06:27 PM CDT, Pool: MANUEL MOORE ([id number]) documented in this encounter Plan of Treatment Not on filedocumented as of this encounter Visit Diagnoses Not on filedocumented in this encounter Care Teams Medical Technologist Microbiology Relationship Specialty Start Date End Date Gagandeep Michaud MD PCP - General 05/17/12 [address] [place] [address] Vane Zarate Psychiatrist Psychiatry 03/22/12 [facility] Psychotherapist 08/04/17 [facility] Corsetier 09/13/17 documented as of this encounter
--- OUTSIDE RECORDS SUMMARY | 2022-02-14 14:54 | XMS_ITS | Encounter Summary ---
:1970 Author Organization [email or web address] Address [address] [place] [address] Care Team Providers Name Role Phone Gagandeep Hinojosa MD Primary Care Provider Reason for Visit Reason Comments Forms Insulin Treated Diabetes Swati litus Report Encounter Details Date Type Department Care Team Description 06/12/2020 Telephone [facility] Gagandeep Hinojosa, Forms (Insulin Treated Medicine Diabetes Mellitus [address] [facility] Report ) [place] [address] [place] [address] [phone] (Wo rk) Social History Tobacco Use Types [...] 6:16 PM CST Form completed and faxed ATTENDANT Abel Novak MA - 06/13/2020 9:38 AM CST Form filled out and routed to Ashish to sign ATTENDANT Viviana Anderson - 06/12/2020 12:19 PM CST Forms & Letters What form/letter are you requesting? [facility]ulin [facility] This letter/other is needed from: Gagandeep Hinojosa MD for DMV How would you like to receive your completed letter/other? Fax to [place] [facility] at [facility] at this fax number: [phone] Additional comments (related to the above concern): [...] contact you.) Please route to: BRENT Coates ATTENDANT documented in this encounter Plan of Treatment Not on filedocumented as of this encounter Visit Diagnoses Not on filedocumented in this encounter Care Teams Sensitized Paper Tester Relationship Specialty Start Date End Date Gagandeep Hinojosa MD PCP - General 05/17/[address] [place] [address] Vane Zarate Psychiatrist Psychiatry 03/22/12 [facility] Psychotherapist 08/04/17 [facility] Class C Driver 09/13/17 documented as of this encounter
--- OUTSIDE RECORDS SUMMARY | 2022-02-14 14:54 | XMS_ITS | Encounter Summary ---
:1970 Author Organization [employer] Address [address] [place] [address] Care Team Providers Name Role Phone Gagandeep Michaud MD Primary Care Provider Reason for Visit Reason Comments Refill Insulin Syringe-Needle U-100 (INSULIN SYRINGE 31G X 5/16) 31G X 5/16 1 ML Encounter Details Date Type Department Care Team Description 06/05/2020 Refill [facility] Gagandeep Michaud, Refil l (Insulin Medicine Syringe-Needle U-[address] (INSULIN [place]YRING[place] [address] [place] [address] [place] [address] 5/16) 31G X 5/16 1 ML) [phone] (Wo rk) Social History Tobacco Use Types [...] prescriptions requested or ordered in this encounter TESTING OPERATOR Interface, Out [employer] Prov Query - 06/05/2020 10:10 AM CST [...] found) Next scheduled visit: None Powered by Jor[employer], Reference: [id number], 06/05/2020 10:10:25 AM ELKIN Pool: PN REFILL WIZARD ADMIN ([id number]) Herlinda Springer - 06/05/2020 10:10 AM CST [...] refills) Please route to: Refill Pool (P [id number]) [place] FP Pool [facility] Patients ONLY (P [id number]) [facility] PEDSS Dr. Laguerre ONLY (P [id number]) TESTING OPERATOR documented in this encounter Plan of Treatment Not on filedocumented as of this encounter Visit Diagnoses Not on filedocumented in this encounter Care Teams Director Of Land Acquisition Relationship Specialty Start Date End Date Gagandeep Michaud MD PCP - General 05/17/12 [facility] [place] [address] Vane Zarate Psychiatrist Psychiatry 03/22/12 [facility] Psychotherapist 08/04/17 [facility] Electronic System Engineer 09/13/17 documented as of this encounter
--- OUTSIDE RECORDS SUMMARY | 2022-02-14 14:54 | XMS_ITS | Encounter Summary ---
:1970 Author Organization [employer] Address [address] [address] Care Team Providers Name Role Phone Gagandeep Hinojosa MD Primary Care Provider Reason for Visit Reason Comments FOLLOW-UP,DIABETES Encounter Details Date Type Department Care Team Description 06/12/2020 Care Coord Office Judy Luke RN FOLLOW-UP,DIABETES Visit [address] [place] [address] [place] [phone] [address] Social History Tobacco Use Types Packs/Day Years [...] 80-180 ?? Reji's direct phone number is [phone], after July 03 ING ANALYST documented in this encounter Progress Notes Judy Pittman RN - 06/12/2020 11:00 AM CST RN Lead Database Developer Visit Pt: Timur Mendozaathers Referred by: Gagandeep [...] He [facility] and had a hard time [...] him to stop accruing medical costs at [facility], once he is approved. Rustam will need to reapply annually, unless of course, he gets MA in the future. In the meantime, Rustam also applied for [facility] Financial Assistance. I emailed a scanned copyof Rustam's bank statement to Reina Marsh, Car Electronics Installer. Housing Rustam states his current anxiety revolves around his living situation, a room he rented on [address] [address]. He was told he has to move out by 06/26/20. Rustam has been working with his Radiocommunications Technician, Han Arshad, who helped him apply for an IRTS in [place] where he could stay for up to 30-90 days, but he hasn't heard if he has been approved. Because his housing isn't stable at this time, I requested to have Arina and Reina mail any correspondence/cards to Lesly Rodrigues, [facility] Lead Database Developer at [facility], so it doesn't get lost and she can pass it on to Rustam. Medication Rustam was recently sent to a Crisis Center in [place] where they provided a supply of Tresiba and Regular insulin, so he states he does not need any insulin at this time. Rustam reports he is doing his best to take better care of himself, taking his insulin more consistently than before (only missing 1-2 Regular insulin doses per week). I reviewed how Rusatm is taking his insulin. He states he [...] to have Jeysons insulin shipped directly to [facility] where we can hold onto it for him until he has a stable place to stay. Blood Glucose Rustam is using a Ray[employer]yle Bharath CGM. He receives his supplies and assistance from [employer]. Rustam did not bring his reader today and does not have access to a computer to utilize [employer]. He receives help with applying his sensors [...] Rustam provided the contact information for his Radiocommunications Technician and requested I call him directly to [...] leave to gather more paperwork for his Radiocommunications Technician. I will notify Rustam when his insulin arrives and schedule a follow up visit. Family/social support: Patient attended today's visit alone. He currently lives alone. Current activity regimen: none Patient barrier(s) to learning identified: Finance, Emotional, Cognitive and Family support. BG Goals: Health [facility] Goal <7 [...] address to clinic address for [employer], [employer], [facility], and ADS. Requested refill of Bharath Sensors that are due in 06/3020. Left detailed message for MG Jasper Radiocommunications Technician regarding Rustam's current needs. Will notify Rustam when [employer] insulin supply arrives. Rustam to call if symptoms of hypoglycemia or readings < 70 mg/dL. Rustam verbalized understanding and agreed with plan of care and follow up. ING ANALYST Judy Pittman RN - 06/12/2020 11:00 AM CST Tresiba U200, Novolog, and Novofine needles received from [facility]. Medication entered into [facility] and verified by Dr Hinojosa. Notified Rustam the medication is being store in the Injection Room refrigerator. Scheduled follow up on 06/25/20. ING ANALYST Judy Pittman RN - 06/12/2020 11:00 AM CST Han Arshad is returning my call. He states he was successful in getting Rustam MA starting yesterday, but notes he has a $900/month spend-down. Han also reports he was notified by Julian, Director of the IRTS Program in [place], that they are not going to accept [...] in addition to stable housing. Both the [place] and [place] IRTS facilities have wait lists for 2-4 weeks. [facility] does have an immediate opening, however Rustam may not be able to afford the cost with only his SSI and MA. ING ANALYST documented in this encounter Plan of Treatment Not on filedocumented as of this encounter Visit Diagnoses Diagnosis Uncontrolled type 2 diabetes mellitus wi th hyperglycemia (HRC) - Primary documented in this encounter Care Teams Binding Folder Machine Relationship Specialty Start Date End Date Gagandeep Hinojosa MD PCP - General 05/17/12 [facility]5 [place] [address] Vane Zarate Psychiatrist Psychiatry 03/22/12 [facility] Mental Health Psychotherapist 08/04/17 [facility] Radiocommunications Technician 09/13/17 documented as of this encounter
--- OUTSIDE RECORDS SUMMARY | 2022-02-14 14:54 | XMS_ITS | Encounter Summary ---
:1970 Author [facility] Address [address] [address] Care Team Providers Name Role Phone Gagandeep Hinojosa MD Primary Care Provider Reason for Referral Consult/Transfer Care (Routine) - Closed Specialty Diagnoses / Procedures Referred By Contact Refer red To Contact Diagnoses Complex care coordination Gagandeep Hinojosa MD [address] [place] [address] Referral ID Status Reason Start Date Expiration Date Visits Requ ested Visits Authorized [id number] Closed 06/09/2020 09/08/2021 1 1 Scheduling Instructions Your provider has recommended care coord ination. A care steam press operator will call you within two weeks. If you would like to s peak with someone sooner, please contact your primary care clinic. NCILIATION ACCOUNTANT Consult/Transfer Care (Routine) - Closed Specialty Diagnoses / Procedures Referred By Contact Refer red To Contact Diagnoses Warts, genital Gagandeep Hinojosa MD [address] [place] [address] Referral ID Status Reason Start Date Expiration Date Visits Requ ested Visits Authorized [id number] Closed 06/09/2020 09/08/2021 1 1 Scheduling Instructions Your provider has recommended an appoint ment with Jimena Quinn. You may call [phone] to schedule your appoi ntment. We suggest you call your health insurance company about your coverage an d benefits for this appointment. NCILIATION ACCOUNTANT Reason for Visit Reason Comments WARAutumn Lump Encounter Details Date Type Department Care Team Description 06/09/2020 Office Visit [facility] Gagandeep Hinojosa g enital (Primary Dx); Romario Rubio MD Skin lesion; [address] [facility] Complex care coordination; Ave. Ave Bipolar I disorder (HRC); [place] [address] [place] Drug-induced extrapyramidal movement disorder [phone] [address] Social History Tobacco Use Types Packs/Day Years [...] Comments Blood Pressure 132/88 06/09/2020 4:43 PM RECONCILIATION ACCOUNTANT Pulse 99 06/09/2020 4:43 PM RECONCILIATION ACCOUNTANT Temperature - - Respiratory Rate - - Oxygen Saturation - - Inhaled Oxygen Concentration - - Weight 88.9 kg (196 lb) 06/09/2020 4:43 PM RECONCILIATION ACCOUNTANT Height - - Body Mass Index 28.12 12/04/2019 10:49 AM CDT documented in this encounter Progress Notes Gagandeep Hinojosa MD - 06/09/2020 4:40 PM CST ICD-10-CM 1. Warts, genital A63.0 DESTRUCT BENIGN SKIN LESIONS UP TO 14 [address] Dermatology Consult-Adult/Peds 2. Skin lesion L98.9 3. [...] Just discharged from a crisis facility at [place] for acute on psychiatric crisis. Not suicidal, [...] Diagnosis Date Noted ??? Non-proliferative diabetic retinopathy ([facility]) 05/02/2019 ??? Hyponatremia 01/16/2018 ??? Tinea versicolor 07/18/2015 ??? Tobacco use disorder ([facility]) 10/26/2012 ??? Anemia 05/02/2012 Overview Note: Anemia, unspecified ??? Microalbuminuria 02/04/2012 ??? NV, old ([facility]) 09/16/2011 ??? History of PTCA 09/16/2011 Overview Note: History of PTCA 04/2011 BMS RCA ??? Obesity, Class I, BMI 30-34.9 ([facility]) 09/16/2011 Overview Note: Body mass index is 31.16 kg/(m^2). ??? Hyperlipidemia with target LDL less than 70 ([facility]) 06/08/2011 Overview Note: Hyperlipidemia LDL goal < 70 ??? ASHD (arteriosclerotic heart disease) ([facility]) 05/04/2011 ??? Erectile dysfunction 01/22/2011 Overview Note: side effect Risperdal ??? Type 2 diabetes mellitus, uncontrolled ([facility]) 12/11/2010 Overview Note: Type II or unspecified type diabetes mellitus without mention of complication, uncontrolled ([facility]) ??? Dermatophytosis of body 09/04/2010 Class: Historical Overview Note: Tinea Corporis ??? Coronary atherosclerosis ([facility]) 12/22/2009 Overview Note: LW Modifier: mod [...] 360 Tablet 3 ??? Continuous Blood Gluc Sql Report Analyst (FREESTYLE TALAT 2 READER SYST) ADÁN Use to scan blood sugars per structural steel worker helper instructions. 1 Each 0 ??? Continuous Blood Gluc Sensor (FREESTYLE TALAT 14 DAY SENSOR) [facility] Use as directed. Change every 14 days. [...] 1 Tablet by mouth. 01/16/2018: [facility] Sig: Take 1 tablet by mouth [...] DESTRUCT BENIGN SKIN LESIONS UP TO 14 [address] Dermatology Consult-Adult/Peds 2. Skin lesion L98.9 Will [...] follow-up He has a visit with his healthcare network pricing consultant for on . Hopefully she can help with housing. Follow-up: 3 weeks NCILIATION ACCOUNTANT documented in this encounter Plan of Treatment Scheduled Referrals Name Type Priority Associated Diagnoses Order [facility] Dermatology Referral Routine Warts, genital Ordered: 05/26 Consult-Adult/Peds documented as of this encounter Visit Diagnoses Diagnosis Warts, genital - Primary Condyloma acuminatum Skin lesion Unspecified disorder of skin and subcuta neous tissue Complex care coordination Bipolar I disorder (HRC) Bipolar I disorder, most recent episode (or current) unspecified Drug-induced extrapyramidal movement dis order (HRC) documented in this encounter Care Teams French Folder Relationship Specialty Start Date End Date Gagandeep Hinojosa MD PCP - General 05/17/12 [facility] [place] [address] Vane Zarate Psychiatrist Psychiatry 03/22/12 [facility] Psychotherapist 08/04/17 [facility] Electronic Lab Technician 09/13/17 documented as of this encounter
--- OUTSIDE RECORDS SUMMARY | 2022-02-14 14:54 | XMS_ITS | Encounter Summary ---
:1970 Author Organization [employer] Address [address], [place] [address] Care Team Providers Name Role Phone Gagandeep Hinojosa MD Primary Care Provider Reason for Visit Reason Comments Patient Care Coordination Encounter Details Date Type Department Care Team Description 07/17/2020 Care Coord [facility] Deborah Rodrigues Patien t Care Phone Medicine J2EE DEVELOPER Coordination [facility] [place] [address] [place] [address] [phone] Social History Tobacco Use Types Packs/Day Years [...] Rodrigues LICSW - 07/17/2020 9:31 AM CDT Devops Engineer - Phone Call Contact with: KARLEY Easton CM, Dave Reason for call: Care Coordination Discussion/actions: Spoke with Rustam regarding his insulin supplies. We will get him supplies when he is moved into stable housing. Rustam said that he will be moving to [facility] in [place] and is on top of the world [...] Primary documented in this encounter Care Teams Patient Service Associate Relationship Specialty Start Date End Date Gagandeep Hinojosa MD PCP - General 05/17/12 [address] [place] [address] Vane Zarate Psychiatrist Psychiatry 03/22/12 [facility] Psychotherapist 08/04/17 [facility] CM Spinning Supervisor 09/13/17 documented as of this encounter
--- OUTSIDE RECORDS SUMMARY | 2022-02-14 14:54 | XMS_ITS | Encounter Summary ---
:1970 Author Organization [email or web address] Address [address] [place] [address] Care Team Providers Name Role Phone Gagandeep Michaud MD Primary Care Provider Reason for Visit Reason Onset Date Comments Refill 05/24/2020 insulin pen needle ( BD ULTRAFINE JANET) 32G X 4 MM Encounter Details Date Type Department Care Team Description 05/24/2020 Refill [facility] Gagandeep Michaud, Refil l (insulin pen Medicine needle (BD ULTRAFINE [address] JANET) 32G X 4 MM) [place] [address] [place] [id number] (Wo rk) Social History Tobacco Use Types [...] Provider: GAGANDEEP MICHAUD Ordering User: ABBIE MITCHELL [employer] MAINTENA[employer]ODIANS Interface, Out Kigo Query - 05/24/2020 11:47 AM CST insulin [...] found) Next scheduled visit: None Powered by [employer], Reference: [id number], 05/24/2020 11:47:11 AM SUPERVISOR MAINTENANCE [employer] CUSTODIANS, Pool: MANUEL REFILL ([id number]) [employer] MAINTENAN[employer] CUSTODIANS documented in this encounter Plan of Treatment Not on filedocumented as of this encounter Visit Diagnoses Diagnosis Uncontrolled type 2 diabetes mellitus wi th microalbuminuria, with long-term current use of insulin - Primary documented in this encounter Care Teams Senior Accounting Analyst Relationship Specialty Start Date End Date Gagandeep Michaud MD PCP - General 05/17/12 [address] [facility] [place] [address] Vaen Zarate Psychiatrist Psychiatry 03/22/12 [facility] Psychotherapist 08/04/17 [facility] Shuttle Buggy Operator 09/13/17 documented as of this encounter
--- OUTSIDE RECORDS SUMMARY | 2022-02-14 14:54 | XMS_ITS | Encounter Summary ---
:1970 Author Organization [employer] Address [address] [place] [address] Care Team Providers Name Role Phone Gagandeep Hinojosa MD Primary Care Provider Reason for Visit Reason Comments Patient Care Coordination Encounter Details Date Type Department Care Team Description 06/30/2020 Care Coord Judy Luke RN Patient Care Phone Medicine [address] [facility] Coordination [address] [place] [address] [phone] Social History Tobacco Use Types Packs/Day Years [...] health. Rustam reports he has been at [facility] and plans to transfer to an IR facility in [place] tomorrow. He does not know where he will find housing after that time. - Rustam was approved for [employer] PAP and has a 3 month supply of Tresiba, Novolog, and insulin pen needles in the refrigerator for whenever he is discharged to stable housing. He will require eduction on how to transition from Relion Regular to Novolog insulin. Y CHEMIST documented in this encounter Plan of Treatment Not on filedocumented as of this encounter Visit Diagnoses Not on filedocumented in this encounter Care Teams Teacher Of The Emotionally Disturbed Relationship Specialty Start Date End Date Gagandeep Hinojosa MD PCP - General 05/17/[address] [place], [place] [address] [address] Vane Zarate Psychiatrist Psychiatry 03/22/12 [facility] Mental Health Psychotherapist 08/04/17 [facility] Roller Maker 09/13/17 documented as of this encounter
--- OUTSIDE RECORDS SUMMARY | 2022-02-14 14:54 | XMS_ITS | Encounter Summary ---
:1970 Author Organization [facility] [place] Address [address] [place] [address] Care Team Providers Name Role Phone Gagandeep Hinojosa MD Primary Care Provider Reason for Referral Consult/Transfer Care (Routine) - Closed Specialty Diagnoses / Procedures Referred By Contact Refer red To Contact Diagnoses Uncontrolled type 2 diabetes mellitus with hyperglycemia (HRC) Gagandeep Hinojosa MD [address] [place] [address] Referral ID Status Reason Start Date Expiration Date Visits Requ ested Visits Authorized [id number] Closed 01/22/2020 07/20/2020 1 1 Scheduling Instructions [...] Dx); Romario Rubio MD Warts, genital; 1415 [facility] . [employer] Uncontrolled type 2 diabetes mellitus with hyperglycemia (HRC) [place] [address] [phone] [place] [address] Social History Tobacco Use Types Packs/Day Years [...] DESTRUCT BENIGN SKIN LESIONS UP TO 14 [id number] 3. Uncontrolled type 2 diabetes mellitus with hyperglycemia ([facility]) E11.65 Optometry Consult-Adult/Peds CHIEF COMPLAINT: Chief Complaint Patient presents with ??? DEPRESSION ??? ANXIETY ??? Growth on penis SUBJECTIVE : Timur Krishnamurthy is an 50 y.o. male who presents for numerous concerns. He is having some increased anxiety because of ongoing divorce process difficulty finding housing. Housing difficulties are mainly financial rather than availability. He is working with his director of social work and his county worker for available facilities. [...] start a video chat service with the [facility] psychiatrists and psychologists, but this is not [...] Diagnosis Date Noted ??? Non-proliferative diabetic retinopathy ([facility]) 05/02/2019 ??? Hyponatremia 01/16/2018 ??? Tinea versicolor 07/18/2015 ??? Tobacco use disorder ([facility]) 10/26/2012 ??? Anemia 05/02/2012 Overview Note: Anemia, unspecified ??? Microalbuminuria 02/04/2012 ??? CA, old ([facility]) 09/16/2011 ??? History of PTCA 09/16/2011 Overview Note: History of PTCA 04/2011 BMS RCA ??? Obesity, Class I, BMI 30-34.9 ([facility]) 09/16/2011 Overview Note: Body mass index is 31.16 kg/(m^2). ??? Hyperlipidemia with target LDL less than 70 06/08/2011 Overview Note: Hyperlipidemia LDL goal < 70 ??? ASHD (arteriosclerotic heart disease) 05/04/2011 ??? Erectile dysfunction 01/22/2011 Overview Note: side effect Risperdal ??? Type 2 diabetes mellitus, uncontrolled ([facility]) 12/11/2010 Overview Note: Type II or unspecified type diabetes mellitus without mention of complication, uncontrolled ([facility]) ??? Dermatophytosis of body 09/04/2010 Class: Historical Overview Note: Tinea Corporis ??? Coronary atherosclerosis 12/22/2009 Overview Note: LW Modifier: mod RCA, negative nuclear stress test ; CAD ??? Nonspecific abnormal results of liver function study 12/22/2009 Overview Note: Liver Function Tests Abnormal ??? Bipolar I disorder ([facility]) 09/15/2005 Overview Note: LW Onset: 58Tub32 ; Bipolar I Dis FAMILY HISTORY OR [...] 200 Strip 3 ??? Continuous Blood Gluc Wetland Scientist (LiquidPlannerSTYLE TALAT 2 READER SYSTM) ADÁN Use to scan blood sugars per telehealth nurse instructions. 1 Each 0 ??? Continuous Blood Gluc Sensor (FREESTYLE TALAT 14 DAY SENSOR) [facility] Use as directed. Change every 14 days. [...] 1 Tablet by mouth. 01/16/2018: Received from: [facility] [facility] Received Sig: Take 1 tablet by [...] controlled, fluent Affect: Very neutral Thought content: [place], fixated on finding housing. Thought process: Logical, analytical, but quite fixated on housing Perception: Seems to be appropriate Intellectual capability: Below average Insight: Below average LABS : ASSESSMENT /PLAN ICD-10-CM 1. Anxiety F41.9 busPIRone (BUSPAR) 10 MG tablet 2. Warts, genital A63.0 DESTRUCT BENIGN SKIN LESIONS UP TO 14 99294 3. Uncontrolled type 2 diabetes mellitus with [...] (HRC) documented in this encounter Care Teams Llama Farmer Relationship Specialty Start Date End Date Gagandeep Hinojosa MD PCP - General 05/17/[address] [place] [address] Vane Zarate Psychiatrist Psychiatry 03/22/12 [facility] Psychotherapist 08/04/17 [facility] Roving Inspector 09/13/17 documented as of this encounter
--- OUTSIDE RECORDS SUMMARY | 2022-02-14 14:54 | XMS_ITS | Encounter Summary ---
:1970 Author Organization [employer] Address [address] [place] [address] Care Team Providers Name Role Phone Gagandeep Michaud MD Primary Care Provider Reason for Visit Reason Comments Refill QUEtiapine (SEROQUEL) 200 MG tablet [Pharmacy Med Name: QUETIAPINE FUMARATE 200MG TABS] Encounter Details Date Type Department Care Team Description 03/02/2020 Refill Gagandeep Storm, Rochelle l (QUEtiapine Medicine MD (SEROQUEL) 200 MG tablet [address] [facility] [address] [Pharmacy Med Name: [place] [address] [place] [address] QUETIAPINE FUMARATE [phone] (Wo rk) 200MG TABS]) Social History Tobacco [...] MICHAUD) Next scheduled visit: None Powered by [employer], Reference: [id number], 03/02/2020 10:34:23 AM MACHINE MOLDER, Pool: MANUEL MOORE ([id number]) INE MOLDER documented in this encounter Plan of Treatment Not on filedocumented as of this encounter Visit Diagnoses Not on filedocumented in this encounter Care Teams Senior Firewall Engineer Relationship Specialty Start Date End Date Gagandeep Michaud MD PCP - General 05/17/12 [facility] [place] [address] Vane Zarate Psychiatrist Psychiatry 03/22/12 [facility] Health Psychotherapist 08/04/17 [facility] Motor Equipment Commanding Officer 09/13/17 documented as of this encounter
--- OUTSIDE RECORDS SUMMARY | 2022-02-14 14:54 | XMS_ITS | Encounter Summary ---
:1970 Author Organization [employer] Address [address] [address] Care Team Providers Name Role Phone Gagandeep Hinojosa MD Primary Care Provider Reason for Visit Reason Comments DEPRESSION Encounter Details Date Type Department Care Team Description 01/19/2020 Nurse Triage [facility] Gagandeep Hinojosa MD DEPRESSION [id number] [place] [address] [phone] Social History Tobacco Use Types Packs/Day Years [...] (mental health worker, psychiatrist, etc.) Protocols used: [id number] Problem list reviewed as related to this call. documented in this encounter Plan of Treatment Not on filedocumented as of this encounter Visit Diagnoses Not on filedocumented in this encounter Care Teams Career Advisor Relationship Specialty Start Date End Date Gagandeep Hinojosa MD PCP - General 05/17/[address] [place], [place] [address] [address] Vane Zarate Psychiatrist Psychiatry 03/22/12 [facility] Psychotherapist 08/04/17 [facility] Window Assembler 09/13/17 documented as of this encounter
--- OUTSIDE RECORDS SUMMARY | 2022-02-14 14:54 | XMS_ITS | Encounter Summary ---
:1970 Author Organization [employer] Address [address] [address] Care Team Providers Name Role Phone Gagandeep Hinojosa MD Primary Care Provider Encounter Details Date Type Department Care Team Description 04/10/[address] Contact with or [address] [employer] [place] [address] disease [phone] Social History Tobacco Use Types Packs/Day Years [...] Procedure Name Priority Date/Time Associated Comments Diagnosis 2019 NOVEL Routine 04/10/2020 10:29 Contact with or Results for this CORONAVIRUS AM HOSPICE CONSULTANT exposure to viral procedure are in disease the results section. documented in this encounter Results Asymptomatic - 2019 Novel Coronavirus (COVID-19) (04/10/2020 10:29 AM HOSPICE CONSULTANT) [facility] Method Time Signature SARS-CoV-2 by Not Detected 04/11/2020 [facility] PCR 11:15 PM HOSPICE CONSULTANT LABORATORIES Comment: INTERPRETIVE INFORMATION: SARS-CoV-2 ([place] VID-19) [...] complia nce with this authorization, please visit [email or web address] for more information and to access [...] collection, transport, storage, and handling. Performed by [employer], [address] [place] [address] [email or web address], Barbara Mckeon MD, La b. Director SARS Cov-2 Source Nares, left and 04/11/2020 11:15 PM HOSPICE CONSULTANT [employer] right Specimen Anatomical Collection Method Collection Time Receive d Time (Source) Location / / Volume Laterality Swab (Source Non-blood 04/10/2020 10:29 04/10/2020 Required) Collection / AM HOSPICE CONSULTANT 11:56 AM HOSPICE CONSULTANT Unknown Alhaji Egan MD LAB_1 Performing Organization Address City/State/ZIP Code Phon e Number [employer] [address] [place], [place] [address] documented in this encounter Visit Diagnoses Diagnosis Contact with or exposure to viral diseas e Contact with or exposure to other viral diseases documented in this encounter Care Teams Security And Privacy Consultant Relationship Specialty Start Date End Date Gagandeep Hinojosa MD PCP - General 05/17/12 [address] [place] [address] Vane Zarate Psychiatrist Psychiatry 03/22/12 [facility] Psychotherapist 08/04/17 [facility] Banking Services Advisor 09/13/17 documented as of this encounter
--- OUTSIDE RECORDS SUMMARY | 2022-02-14 14:54 | XMS_ITS | Encounter Summary ---
:1970 Author Organization [employer] Address [address] [place] [address] Care Team Providers Name Role Phone Gagandeep Hinojosa MD Primary Care Provider Reason for Visit Reason Comments APPOINTMENT REQUEST Encounter Details Date Type Department Care Team Description 02/26/2020 Care Coord Phone Judy Luke R N APPOINTMENT REQUEST Medicine 1415 [facility] 1415 [facility] . [place] [address] [place] [phone] Social History Tobacco Use Types Packs/Day Years [...] with selecting a supplemental plan. Rustam agreed. AL PHYSIOLOGY TEACHER Judy Pittman RN - 02/26/2020 11:52 AM CST Rustam did not show for his DM follow up appt with Dr Hinojosa and myself today. I left a detailed message requesting he call back to reschedule, as we need to complete his application for [employer] and call the Senior Linkage Line to search for a Medicare supplemental plan. I stressed that both of these applications are time sensitive. AL PHYSIOLOGY TEACHER documented in this encounter Plan of Treatment Not on filedocumented as of this encounter Visit Diagnoses Not on filedocumented in this encounter Care Teams Drafter Electrical Relationship Specialty Start Date End Date Gagandeep Hinojosa MD PCP - General 05/17/[address] [place], [place] [address] [address] Vane Zarate Psychiatrist Psychiatry 03/22/12 [facility] Psychotherapist 08/04/17 [facility] Lawn Caretaker 09/13/17 documented as of this encounter
--- OUTSIDE RECORDS SUMMARY | 2022-02-14 14:54 | XMS_ITS | Encounter Summary ---
:1970 Author Organization [employer] Address [address] [place] [address] Care Team Providers Name Role Phone Gagandeep Hinojosa MD Primary Care Provider Reason for Visit Reason Comments LETTER NEEDED Encounter Details Date Type Department Care Team Description 03/12/2020 Telephone [facility] Gagandeep Hinojosa MD LETTER NEEDED 1415 [facility] . 1415 [place] [address] [place] [address] [phone] (Wo rk) Social History Tobacco Use Types [...] med list is at the front end assistant ready to be picked up Saumya Ordaz - 03/12/2020 4:02 PM CST Forms & Letters What form/letter are you requesting? Pt would like medication list This letter/other is needed from: Gagandeep Hinojosa MD for linkage line How would you like to receive your completed letter/other? learning support services director at the clinic Additional comments (related to [...] contact you.) Please route to: [facility] E[facility] documented in this encounter Plan of Treatment Not on filedocumented as of this encounter Visit Diagnoses Not on filedocumented in this encounter Care Teams Gre Tutor Relationship Specialty Start Date End Date Gagandeep Hinojosa MD PCP - General 05/17/12 [facility] [place] [address] Vane Zarate Psychiatrist Psychiatry 03/22/12 [facility] Psychotherapist 08/04/17 [facility] Podiatric Surgeon 09/13/17 documented as of this encounter
--- OUTSIDE RECORDS SUMMARY | 2022-02-14 14:54 | XMS_ITS | Encounter Summary ---
:1970 Author Organization [employer] Address [address] [place] [address] Care Team Providers Name Role Phone Gagandeep Hinojosa MD Primary Care Provider Reason for Visit Reason Comments QUESTIONS, GENERAL Encounter Details Date Type Department Care Team Description 07/16/2020 Telephone [place] [facility] Gagandeep Hinojosa, QUESTIONS, GENERAL 1415 [facility] [place] [address] 1415 [facility] [phone] [place] [address] (Wo rk) Social History Tobacco [...] Nursing Notes Deborah Rodrigues LICSW - 07/17/2020 3:51 PM CDT Core Laying Machine Operator - Phone Call Contact with: Rustam Reason for call: Care Coordination Discussion/actions: Received a phone call back from Rustam. We discussed his diabetic supplies and hewill get them when he moves to permanent housing. Rustam is currently in an IRTS and has been asked to leave. Spoke with his CMHan, who confirmed Rustam will be moving to [facility] in [place]. Once Rustam is settled there, we will work on getting his diabetic supplies to him. Rustam expressed understanding with this plan. Shared plan: -Care Coordination follow-up as needed. Pt verbalized understanding and agreed with plan of care and follow up. Deborah Rodrigues LICSW - 07/17/2020 9:28 AM CDT Called Rustam to discuss his insulin and supplies. Left a detailed message [place] [phone] if he calls the clinic. Corinne Villafuerte - 07/16/2020 1:08 PM CDT Miscellaneous Questions & FYI's - Question/Concern (DO NOT use for billing and coding concerns see BEST care reporting system) What is your question or concern? Pt calling regarding diabetic supplies that was shipped to in [place]. See encounter from director day care center on 06/30/2020. States he has a stable address now. The address is: Sarai [place] [place] [address] Phone number for Sarai powell [phone]. Would like a call back when it has been sent. Is it okay to leave a detailed message on your voicemail? Yes (Advise caller that the PN call back number will end with [phone] or unknown) Please route to: Appropriate pool per call routing grid documented in this encounter Plan of Treatment Not on filedocumented as of this encounter Visit Diagnoses Not on filedocumented in this encounter Care Teams Hair And Makeup Designer Relationship Specialty Start Date End Date Gagandeep Hinojosa MD PCP - General 05/17/12 [address] [place] [address] Vane Zarate Psychiatrist Psychiatry 03/22/12 [facility] Psychotherapist 08/04/17 [facility] CM Insulation Batting Machine Operator 09/13/17 documented as of this encounter
--- OUTSIDE RECORDS SUMMARY | 2022-02-14 14:54 | XMS_ITS | Encounter Summary ---
:1970 Author Organization [employer] Address [address], [place] [address] Care Team Providers Name Role Phone Gagandeep Michaud MD Primary Care Provider Reason for Visit Reason Onset Date Comments Refill 07/01/2020 trihexyphenidyl (ART ANE) 2 MG tablet Encounter Details Date Type Department Care Team Description 07/01/2020 Refill [facility] Gagandeep Michaud, Refil l (trihexyphenidyl Medicine (ARTANE) 2 MG tablet) 1415 [facility] . [address] [place] [address] [place] [id number] (Wo rk) Social History Tobacco Use Types [...] found) Next scheduled visit: None Powered by [employer], Reference: [id number], 07/01/2020 8:27:18 AM Minerva GRANGER ([id number]) documented in this encounter Plan of Treatment Not on filedocumented as of this encounter Visit Diagnoses Not on filedocumented in this encounter Care Teams Garage Door Installer Relationship Specialty Start Date End Date Gagandeep Michaud MD PCP - General 05/17/[address] [place] [address] [place] [address] Vane Zarate Psychiatrist Psychiatry 03/22/12 [facility] Psychotherapist 08/04/17 [facility] Nursing Clinical Director 09/13/17 documented as of this encounter
--- OUTSIDE RECORDS SUMMARY | 2022-02-14 14:54 | XMS_ITS | Encounter Summary ---
:1970 Author Organization [employer] Address [address], [place] [address] Care Team Providers Name Role Phone Gagandeep Michaud MD Primary Care Provider Reason for Visit Reason Onset Date Comments Refill Refill 05/10/2020 Encounter Details Date Type Department Care Team Description 05/08/2020 Refill [facility] Gagandeep Michaud MD Refill; Refill 1415 [facility] . [address] [place] [address] [place], [place] [id number] (Wo rk) Social History Tobacco Use Types [...] Tablets by mouth two times a day. WEB DEVELOPMENT CONSULTANT Alyssa Porter RN - 05/09/2020 11:52 AM [...] TWO TABLETS BY MOUTH TWICE A DAY WEB DEVELOPMENT CONSULTANT Interface, Out Surescripts Prov Query - 05/08/2020 [...] WBC: 8.4 k/cmm on 11/28/2018 Powered by [employer], Reference: [id number], 05/08/2020 12:39:24 PM IT WEB DEVELOPMENT CONSULTANT, Pool: MANUEL MOORE ([id number]) WEB DEVELOPMENT CONSULTANT documented in this encounter Plan of Treatment Not on filedocumented as of this encounter Visit Diagnoses Diagnosis Bipolar I disorder (HRC) - Primary Bipolar I disorder, most recent episode (or current) unspecified ASHD (arteriosclerotic heart disease) ([facility]) Coronary atherosclerosis of unspecified type of vessel, campo or graft documented in this encounter Care Teams Insole Department Worker Relationship Specialty Start Date End Date Gagandeep Michaud MD PCP - General 05/17/[address] [place] [address] [place] [address] Vane Zarate Psychiatrist Psychiatry 03/22/12 [facility] Psychotherapist 08/04/17 [facility] Scale Clerk 09/13/17 documented as of this encounter
--- OUTSIDE RECORDS SUMMARY | 2022-02-14 14:54 | XMS_ITS | Encounter Summary ---
:1970 Author Organization [facility] Address [address] [place] [address] Care Team Providers Name Role Phone Gagandeep iMchaud MD Primary Care Provider Reason for Visit Reason Comments Refill amLODIPine (NORVASC) 5 MG ta blet [Pharmacy Med Name: amLODIPine Besylate 5 MG Tablet] Encounter Details Date Type Department Care Team Description 09/02/2020 Refill aGgandeep Storm, Refil l (amLODIPine Medicine (NORVASC) 5 MG tablet [address] [facility] [address] [Pharmacy Med Name: [place] [address] [place] [address] amLODIPine Besylate 5 MG [phone] (Wo rk) Tablet]) Social History Tobacco Use [...] MICHAUD) Next scheduled visit: None Powered by [employer], Reference: [id number], 09/02/2020 1:07:36 PM CDT, Pool:MANUEL LANDAILL ([id number]) documented in this encounter Plan of Treatment Not on filedocumented as of this encounter Visit Diagnoses Not on filedocumented in this encounter Care Teams Sheet Heater Helper Relationship Specialty Start Date End Date Gagandeep Michaud MD PCP - General 05/17/12 1415 [facility] [place] [address] Vane Zarate Psychiatrist Psychiatry 03/22/12 [facility] Psychotherapist 08/04/17 [facility] Access Services Assistant 09/13/17 documented as of this encounter
--- OUTSIDE RECORDS SUMMARY | 2022-02-14 14:54 | XMS_ITS | Encounter Summary ---
:1970 Author Organization [facility] Address [address] [place] [address] Care Team Providers Name Role Phone Gagandeep Hinojosa MD Primary Care Provider Encounter Details Date Type Department Care Team Description 04/10/2020 Notes/Orders [facility] MasonkeeAlhaji Co ntact with james Belcher MD exposure to viral [address] [place] [address] [phone] Social History Tobacco Use Types Packs/Day Years [...] 2019 Novel Coronavirus (COVID-19) (04/10/2020 10:29 AM FISHING LURE ASSEMBLER) [facility] Method Time Signature SARS-CoV-2 by Not Detected 04/11/2020 [facility] PCR 11:15 PM FISHING LURE ASSEMBLER LABORATORIES Comment: INTERPRETIVE INFORMATION: SARS-CoV-2 ([place] VID-19) [...] complia nce with this authorization, please visit [email or web address] for more information and to access [...] collection, transport, storage, and handling. Performed by [employer], [address] [place] [address] www.[email or web address], Brabara Mckeon MD, La b. Director SARS Cov-2 Source Nares, left and 04/11/2020 11:15 PM FISHING LURE ASSEMBLER [employer] right Specimen Anatomical Collection Method Collection Time Receive d Time (Source) Location / / Volume Laterality Swab (Source Non-blood 04/10/2020 10:29 04/10/2020 Required) Collection / AM FISHING LURE ASSEMBLER 11:56 AM FISHING LURE ASSEMBLER Unknown Alhaji Egan MD LAB_1 Performing Organization Address City/State/ZIP Code Phon e Number [employer] [address] [place], [place] [address] documented in this encounter Visit Diagnoses Diagnosis Contact with or exposure to viral diseas e Contact with or exposure to other viral diseases documented in this encounter Care Teams Manager Property Relationship Specialty Start Date End Date Gagandeep Hinojosa MD PCP - General 05/17/12 [address] [place] [address] Vane Zarate Psychiatrist Psychiatry 03/22/12 [facility] Psychotherapist 08/04/17 [facility] Network Consultant 09/13/17 documented as of this encounter
--- OUTSIDE RECORDS SUMMARY | 2022-02-14 14:54 | XMS_ITS | Encounter Summary ---
:1970 Author Organization [employer] Address [address], [place] [address] Care Team Providers Name Role Phone Gagandeep Hinojosa MD Primary Care Provider Reason for Visit Reason Comments Patient Care Coordination Encounter Details Date Type Department Care Team Description 08/20/2020 Care Coord [facility] Deborah Rodrigues Patien t Care Phone Medicine BIN FILLER Coordination [facility] [place] [address] [place] [address] [phone] Social History Tobacco Use Types Packs/Day Years [...] Rodrigues LICSW - 08/20/2020 2:18 PM CDT Propulsion Generator Repairer - Phone Call Contact with: KARLEY Easton CM Reason for call: Care Coordination Discussion/actions: Called Rustam to check in, and he stated he is doing ???okay and is at a retirement in [place].Rustam said that he has been having a lot of anxiety, but is trying to get settled in down there. Rustam is establishing medical care in [place], but agreed to call if he needed anything. I talked with him about the free insulin that was shipped to the [facility], but he was unable to think about a solution on how to get the insulin. I told Rustam that he has a dermatology appointment next month, at the [facility], so he may be able to [...] he is going to make sure the retirement can transport him. Once Ahn confirms that Rustam will be attending this [...] Primary documented in this encounter Care Teams Medicare Sales Executive Relationship Specialty Start Date End Date Gagandeep Hinojosa MD PCP - General 05/17/12 [address] [place] [address] Vane Zarate Psychiatrist Psychiatry 03/22/12 [facility] Mental Health Psychotherapist 08/04/17 [facility] Quality Compliance Consultant 09/13/17 documented as of this encounter
--- OUTSIDE RECORDS SUMMARY | 2022-02-14 14:54 | XMS_ITS | Encounter Summary ---
:1970 Author Organization [facility] Address [address] [place] [address] Care Team Providers Name Role Phone Gagandeep Michaud MD Primary Care Provider Reason for Visit Reason Comments Refill risperiDONE (RISPERDAL) 3 MG tablet [Pharmacy Med Name: RISPERIDONE 3MG TABS] Encounter Details Date Type Department Care Team Description 05/08/2020 Refill Gagandeep Storm, Refrose mary l (risperiDONE Medicine MD (RISPERDAL) 3 MG tablet [address] [Pharmacy Med Name: [place] [address] [place] [address] RISPERIDONE 3MG TABS]) [phone] (Wo rk) Social History Tobacco Use Types [...] found) Next scheduled visit: None Powered by [employer], Reference: [id number], 05/08/2020 12:39:25 PM WEB OPERATIONS SPECIALIST, Pool: MANUEL MOORE ([id number]) OPERATIONS SPECIALIST documented in this encounter Plan of Treatment Not on filedocumented as of this encounter Visit Diagnoses Not on filedocumented in this encounter Care Teams Park Landscape Architect Relationship Specialty Start Date End Date Gagandeep Michaud MD PCP - General 05/17/[address] [place] [address] [place] [address] Vane Zarate Psychiatrist Psychiatry 03/22/12 [facility] Psychotherapist 08/04/17 [facility] Canvas Worker 09/13/17 documented as of this encounter
--- OUTSIDE RECORDS SUMMARY | 2022-02-14 14:54 | XMS_ITS | Encounter Summary ---
:1970 Author Organization [employer] Address [address], [place] [address] Care Team Providers Name Role Phone Gagandeep Hinojosa MD Primary Care Provider Reason for Visit Reason Comments COVID Test Results Encounter Details Date Type Department Care Team Description 04/14/2020 Telephone [facility] Gagandeep Hinojosa, [place] VID Test Results Medicine [address] [place], [place] [address] [place] [address] [phone] (Wo rk) Social History Tobacco Use Types [...] your PCP or complete a visit at [employer]. ??? If you develop shortness of breath [...] their results, a printout is available on [employer] or a letter has been sent via mail (if inactive on [employer]). Mikaela Saldivar RN 04/14/2020, 12:16 PM O TIME SALESPERSON documented in this encounter Plan of Treatment Not on filedocumented as of this encounter Visit Diagnoses Not on filedocumented in this encounter Care Teams Academic Advisement Director Relationship Specialty Start Date End Date Gagandeep Hinojosa MD PCP - General 05/17/[address] [place], [place] [address], [place] [address] Vane Zarate Psychiatrsamantha Psychiatry 03/22/12 [facility] Health Psychotherapist 08/04/17 [facility] Community Outreach Worker 09/13/17 documented as of this encounter
--- OUTSIDE RECORDS SUMMARY | 2022-02-14 14:54 | XMS_ITS | Encounter Summary ---
:1970 Author Organization [facility] Address [address], [place] [address] Care Team Providers Name Role Phone Gagandeep Hinojosa MD Primary Care Provider Encounter Details Date Type Department Care Team Description 08/18/2020 Orders Only Initial Department Provider, Magda, [facility] YADY JEFFRIES MD [place], [place] [address] Interface provider [phone] [place] [address] Social History Tobacco Use Types Packs/Day Years [...] on filedocumented in this encounter Care Teams Circulating Process Inspector Relationship Specialty Start Date End Date Gagandeep Hinojosa MD PCP - General 05/17/12 [address] [place] [address] Vane Zarate Psychiatrist Psychiatry 03/22/12 [facility] Psychotherapist 08/04/17 [facility] Annual Giving Director 09/13/17 documented as of this encounter
--- OUTSIDE RECORDS SUMMARY | 2022-02-14 14:54 | XMS_ITS | Encounter Summary ---
:1970 Author Organization [employer] Address [address] [place] [address] Care Team Providers Name Role Phone Gagandeep Hinojosa MD Primary Care Provider Reason for Visit Reason Comments Financial Encounter Details Date Type Department Care Team Description 04/08/2020 Care Coord Office Judy Lkue RN Financial Visit Medicine 1415 [facility] 1415 [facility] . [place] [address] [place] [address] [phone] Social History Tobacco Use Types Packs/Day Years [...] Coordination Timur was seen alone. Discussion/actions: uRstam is here today requesting help with applying for pharmaceutical assistance and Medicare Partners. He states he also needs help with applying his Mozese sensor. Insurance Rustam currently has Medicare, plus [...] Rustam receives all his care at a [facility] facility, he will not be financially responsible [...] Therefore, he would like to apply for [employer] to help with the cost of Tresiba [...] SHARED PLAN: Completed Medicare Partners application. Completed [employer] PAP application. Bring Social Security Benefit letter and fax applications above. Scan BG readings, as directed. Come in to replace Bharath sensors every 14 days. Rustam verbalized understanding and agreed with plan of care and follow up. OR OF OSTEOPATHY documented in this encounter Plan of Treatment Not on filedocumented as of this encounter Visit Diagnoses Not on filedocumented in this encounter Care Teams Digital Retoucher Relationship Specialty Start Date End Date Gagandeep Hinojosa MD PCP - General 05/17/12 14[address] [facility] [place] [address] Vane Zarate Psychiatrist Psychiatry 03/22/12 [facility] Mental Health Psychotherapist 08/04/17 [facility] Safety Intern 09/13/17 documented as of this encounter
--- OUTSIDE RECORDS SUMMARY | 2022-02-14 14:55 | XMS_ITS | Encounter Summary ---
:1970 Author Organization [employer] Address [address] [place] [address] Care Team Providers Name Role Phone Gagandeep Hinojosa MD Primary Care Provider Reason for Referral Consult/Transfer Care (Routine) - Closed Specialty Diagnoses / Procedures Referred By Contact Refer red To Contact Diagnoses Uncontrolled type 2 diabetes mellitus with hyperglycemia (HRC) Gagandeep Hinojosa MD [address] [facility] [place] [address] Referral ID Status Reason Start Date Expiration Date Visits Requ ested Visits Authorized [id number] Closed 12/04/2019 03/04/2021 1 1 Scheduling Instructions Your provider has recommended an appoint ment with [facility]. You may call [phone] to schedule your appoi ntment. Reason for Visit Reason Comments Medicare Annual Wellness Diabetes Growth on penis, x2 months Encounter Details Date Type Department Care Team Description 12/04/2019 Office Visit Gagandeep Storm for Medicare annual wellness exam (Primary Dx); Romario Rubio MD Uncontrolled type 2 diabetes mellitus wi th hyperglycemia (HRC); [address] 1415 [facility] Essential hypertension; [place] [address] Marlena Warts, genital; [phone] [place] Tinea versicolo r [id number] Social History Tobacco Use Types Packs/Day Years [...] DESTRUCT BENIGN SKIN LESIONS UP TO 14 [address] Repeat treatment in 3 weeks Tinea versicolor [...] 1 Tablet by mouth. 01/16/2018: Received from: [facility] Received Sig: Take 1 tablet [...] DESTRUCT BENIGN SKIN LESIONS UP TO 14 [address] 5. Tinea versicolor B36.0 terbinafine (LAMISIL) 250 [...] versicolor documented in this encounter Care Teams Continuous Mining Machine Lode Miner Relationship Specialty Start Date End Date Gagandeep Hinojosa MD PCP - General 05/17/[address] [place] [address] Vane Zarate Psychiatrist Psychiatry 03/22/12 [facility] Mental Health Psychotherapist 08/04/17 [facility] Cinema Operator 09/13/17 documented as of this encounter
--- OUTSIDE RECORDS SUMMARY | 2022-02-14 14:55 | XMS_ITS | Encounter Summary ---
:1970 Author Organization [employer] Address [address] [place] [address] Care Team Providers Name Role Phone Gagandeep Michaud MD Primary Care Provider Reason for Visit Reason Comments Refill QUEtiapine (SEROQUEL) 200 MG tablet [Pharmacy Med Name: QUEtiapine Fumarate 200 MG Oral Tablet] Encounter Details Date Type Department Care Team Description 12/10/2019 Refill Gagandeep Storm, Rochelle l (QUEtiapine Medicine (SEROQUEL) 200 MG tablet [address] [facility] [Pharmacy Med Name: [place] [address] [place] [address] QUEtiapine Fumarate 200 [phone] (Wo rk) MG Oral Tablet]) Social History [...] MICHAUD) Next scheduled visit: None Powered by [employer]ia, Reference: [id number], 12/10/2019 5:31:41 AM CDT, Pool: MANUEL MOORE ([id number]) documented in this encounter Plan of Treatment Not on filedocumented as of this encounter Visit Diagnoses Not on filedocumented in this encounter Care Teams Skip Hoist Operator Relationship Specialty Start Date End Date Gagandeep Michaud MD PCP - General 05/17/12 [facility] [place] [address] Vane Zarate Psychiatrist Psychiatry 03/22/12 [facility] Psychotherapist 08/04/17 [facility] Toll Relief Operator 09/13/17 documented as of this encounter
--- OUTSIDE RECORDS SUMMARY | 2022-02-14 14:55 | XMS_ITS | Encounter Summary ---
:1970 Author Organization [employer] Address [address] [place] [address] Care Team Providers Name Role Phone Gagandeep Hinojosa MD Primary Care Provider Encounter Details Date Type Department Care Team Description 12/04/2019 Lab Visit [facility] Routine general medical exam ination at health care facility (Primary Dx); [address] Type 2 diabetes mellitus wit h diabetic polyneuropathy, with long-term current use of insulin (HRC); [place] [address] Uncontrolled type 2 diabetes mellitus with hyperglycemia ([facility]); [phone] Diabetes mellit us with complication ([facility]); Diabetes mellit us with neurological manifestations, uncontrolled ([facility]); Diabetic polyne uropathy associated with type 2 diabetes mellitus ([facility]); ASHD (arteriosc lerotic heart disease) Social [...] P athologist Signature Albumin, 351.2 mg/L 12/04/2019 MAN Urine, Random 3:54 PM CDT LABORATORY Creatinine, 106 >20 mg/dL 12/04/2019 MAN Urine, Random 3:54 PM CDT LABORATORY Albumin/Creati 331 (H) <30 mg/g 12/04/2019 MAN nine Ratio, 3:54 PM CDT LABORATORY Urine, Random Specimen Anatomical Collection Method Collection Time Receive d Time (Source) Location / / Volume Laterality Urine Non-blood 12/04/2019 10:10 12/04/2019 Collection / AM CDT 10:10 AM CDT Unknown Gagandeep Hinojosa MD LAB_1 Performing Organization Address [facility]/ZIP Code Phon e Number [facility] [address] [place], [place] [phone] (ABNORMAL) Lipid Panel and Direct LDL(If Needed) - in 3 months (12/04/2019 10:06 AM CDT) Patholo gist Method Time Signature Cholesterol 116 0 - 199 12/04/2019 MAN mg/dL 4:03 PM CDT LABORATORY Triglyceride 137 <=149 12/04/2019 MAN mg/dL 4:03 PM CDT LABORATORY HDL Cholesterol 35 (L) >=40 mg/dL 12/04/2019 MAN 4:03 PM CDT LABORATORY LDL, Calculated 54 <130 mg/dL 12/04/2019 MAN 4:03 PM CDT LABORATORY Non HDL Chol, 81 mg/dL 12/04/2019 MAN Calculated 4:03 PM CDT LABORATORY Cholesterol/HDL 3.3 12/04/2019 MAN Ratio 4:03 PM CDT LABORATORY Hours Fasting 12 12/04/2019 [facility] 4:03 PM CDT LABORATORY Specimen Anatomical Collection Method / Collection Time Recei abimael Time (Source) Location / Volume Laterality Blood Venipuncture / 12/04/2019 10:06 0 Unknown AM CDT 10:06 AM CDT Gagandeep Hinojosa MD LAB_1 Performing Organization Address City/[facility]/ZIP Code Phon e Number [facility] [address] [place], [place] [phone] [facility] [address] [place] [phone], [facility] Creatinine / GFR - in 3 months (12/04/2019 10:06 AM CDT) P athologist Signature Creatinine 0.80 0.73 - 12/04/2019 MAN 1.18 mg/dL 4:03 PM CDT LABORATORY GFR, Estimated >60 >60 12/04/2019 MAN mL/min/1.7 4:03 PM CDT LABORATORY 3m2 Specimen Anatomical Collection Method / Collection Time Recei abimael Time (Source) Location / Volume Laterality Blood Venipuncture / 12/04/2019 10:06 0 Unknown AM CDT 10:06 AM CDT Gagandeep Hinojosa MD LAB_1 Performing Organization Address City/[facility]/ZIP Code Phon e Number [facility] [address] [place] [phone] (ABNORMAL) POCT Glycosylated Hemoglobin (HB A1C) - in 3 months (12/04/2019 10:06 AM CDT) Patholo gist Method Time Signature Hemoglobin A1C 11.3 (H) <=5.6 % 12/04/2019 [facility] (Rapid) 10:15 AM CDT LABORATORY Specimen Anatomical [...] Gagandeep Hinojosa MD LAB_1 Performing Organization Address [facility] Phon e Number [facility] [address] [place] [address] Extra Gold/SST Tube (12/04/2019 10:06 AM CDT) [facility] gist Method Time Signature Extra Specimen 12/04/2019 [facility] Gold/SST Tube will be held 12:00 PM CDT LABORATORY Drawn for 5 days Specimen Anatomical Collection Method / Collection Time Recei abimael Time (Source) Location / Volume Laterality Blood Venipuncture / 12/04/2019 10:06 0 Unknown AM CDT 10:06 AM CDT Gagandeep Hinojosa MD LAB_1 Performing Organization Address City/[facility]/ZIP Code Phon e Number [facility] [address] [place] [address] documented in this encounter Visit Diagnoses Diagnosis Routine general medical examination at [facility] facility - Primary Routine general medical examination at a [facility] Type 2 diabetes mellitus with diabetic [...] diabetes mellitus (HRC) ASHD (arteriosclerotic heart disease) ([facility]) Coronary atherosclerosis of unspecified type of vessel, venetie ira or graft documented in this encounter Care Teams Oracle Application Architect Relationship Specialty Start Date End Date Gagandeep Hinojosa MD PCP - General 05/17/12 [address] [place] [address] Vane Zarate Psychiatrist Psychiatry 03/22/12 [facility] Psychotherapist 08/04/17 [facility] Retirement Village Manager 09/13/17 documented as of this encounter
--- OUTSIDE RECORDS SUMMARY | 2022-02-14 14:55 | XMS_ITS | Encounter Summary ---
:1970 Author Organization [employer] Address [address] [place] [address] Care Team Providers Name Role Phone Gagandeep Hinojosa MD Primary Care Provider Reason for Visit Reason Comments LACERATION, TOES Encounter Details Date Type Department Care Team Description 09/14/2019 Nurse Triage [facility] Gagandeep Hinojosa, LACERATION, TOES [address] [place] [address] [place] [address] (Wo rk) Social History Tobacco [...] Disposition ??? Torn toenail Protocols used: TOE [id number] documented in this encounter Plan of Treatment Not on filedocumented as of this encounter Visit Diagnoses Not on filedocumented in this encounter Care Teams Rocket Motor Tester Relationship Specialty Start Date End Date Gagandeep Hinojosa MD PCP - General 05/17/12 1415 [facility] [place] [address] Vane Zarate Psychiatrist Psychiatry 03/22/12 [facility] Psychotherapist 08/04/17 [facility] Nut Blanker Operator 09/13/17 documented as of this encounter
--- OUTSIDE RECORDS SUMMARY | 2022-02-14 14:55 | XMS_ITS | Encounter Summary ---
:1970 Author Organization [employer] Address [address], [place] [address] Care Team Providers Name Role Phone Gagandeep Hinojosa MD Primary Care Provider Reason for Visit Reason Comments FOLLOW-UP,DIABETES Encounter Details Date Type Department Care Team Description 11/13/2019 Care Coord Office Judy Luke RN FOLLOW-UP,DIABETES Visit Medicine [facility] [place] [address] [place] [phone] [address] Social History Tobacco Use Types Packs/Day Years [...] RN - 11/13/2019 11:00 AM CDT RN Magazine Publisher Visit Pt: Timur Krishnamurthy Referred by: Gagandeep [...] on filedocumented in this encounter Care Teams Equipment Processer Storage Relationship Specialty Start Date End Date Gagandeep Hinojosa MD PCP - General 05/17/12 [address] [place] [address] Vane Zarate Psychiatrist Psychiatry 03/22/12 [facility] Psychotherapist 08/04/17 [facility] In Service Education Teacher 09/13/17 documented as of this encounter
--- OUTSIDE RECORDS SUMMARY | 2022-02-14 14:55 | XMS_ITS | Encounter Summary ---
:1970 Author Organization [employer] Address [address], [place] [address] Care Team Providers Name Role Phone Gagandeep Hinojosa MD Primary Care Provider Reason for Visit Reason Comments FOLLOW-UP,DIABETES Encounter Details Date Type Department Care Team Description 12/19/2019 Care Coord Office Judy Luke RN FOLLOW-UP,DIABETES Visit Medicine [facility]5 [address] [place] [address] [place] [phone] [address] Social History Tobacco Use Types Packs/Day Years [...] RN - 12/19/2019 11:00 AM CDT RN Fabric Awning Repairer Visit Pt: Timur Krishnamurthy Referred by: Gagandeep [...] points >200. I provided aFreesbogdan Bharath at Rusatm's last visit, which he stated was very [...] Finance and Emotional. BG Goals: [facility] Goal <7 Pre-meal: 70-130 mg/dL PPG: [...] on filedocumented in this encounter Care Teams Cyber Systems Operations Specialist Relationship Specialty Start Date End Date Gagandeep Hinojosa MD PCP - General 05/17/[address] [place], [place] [address] [address] Vane Zarate Psychiatrist Psychiatry 03/22/12 [facility] Psychotherapist 08/04/17 [facility] Traffic Administrator 09/13/17 documented as of this encounter
--- OUTSIDE RECORDS SUMMARY | 2022-02-14 14:55 | XMS_ITS | Encounter Summary ---
:1970 Author Organization [employer] Address [address], [place] [address] Care Team Providers Name Role Phone Gagandeep Hinojosa MD Primary Care Provider Reason for Visit Reason Comments FOLLOW-UP,DIABETES Encounter Details Date Type Department Care Team Description 10/10/2019 Care Coord Office Judy Luke RN FOLLOW-UP,DIABETES Visit [place] [id number] . [place] [address] [place] [phone] [address] Social History Tobacco Use Types Packs/Day Years [...] RN - 10/10/2019 11:00 AM CDT RN Social Sciences Research Scientist Visit Pt: Timur Krishnamurthy Referred by: Gagandeep [...] trying to eat more cheese sticks and Slovenian or light yogurt instead. I reminded Rustam [...] Mental Health Case Management [facility]. Therefore, Rustam requested to cancel his [...] covered today: Correction Factor Hyperglycemia BG Monitoring [facility] Mental [facility] Edwin received verbal instructions and written materials [...] on filedocumented in this encounter Care Teams Women'S Ministry Director Relationship Specialty Start Date End Date Gagandeep Hinojosa MD PCP - General 05/17/12 [facility] [place] [address] Vane Zarate Psychiatrist Psychiatry 03/22/12 [facility] Psychotherapist 08/04/17 [facility] Nursing Unit Manager 09/13/17 documented as of this encounter
--- OUTSIDE RECORDS SUMMARY | 2022-02-14 14:55 | XMS_ITS | Encounter Summary ---
:1970 Author Organization [employer] Address [address] [address] Care Team Providers Name Role Phone Gagandeep Hinojosa MD Primary Care Provider Reason for Visit Reason Comments HYPOGLYCEMIA Encounter Details Date Type Department Care Team Description 10/05/2019 Phone Visit Urgent Care [facility] (Primary Dx); [place] Uncontrolled type 2 diabetes mellitus with complication, with long-term current use of insulin ([facility]) [address] [place], [place] [address] Social History Tobacco Use Types [...] insulin documented in this encounter Care Teams Chief Minister Relationship Specialty Start Date End Date Gagandeep Hinojosa MD PCP - General 05/17/[address] [place] [address] Vane Zarate Psychiatrist Psychiatry 03/22/12 [facility] Psychotherapist 08/04/17 [facility] Binder Layer 09/13/17 documented as of this encounter
--- OUTSIDE RECORDS SUMMARY | 2022-02-14 14:55 | XMS_ITS | Encounter Summary ---
:1970 Author Organization [employer] Address [address] [address] Care Team Providers Name Role Phone Gagandeep Hinojosa MD Primary Care Provider Reason for Visit Reason Comments FOLLOW-UP,DIABETES Encounter Details Date Type Department Care Team Description 09/18/2019 Care Coord Office Judy Luke RN FOLLOW-UP,DIABETES Visit [place] [address] [address] . [place] [address] [place] [phone] [address] Social History Tobacco Use Types Packs/Day Years [...] RN - 09/18/2019 3:00 PM CDT RN Item Processor Visit Pt: Timur Krishnamurthy Referred by: Gagandeep [...] trying to eat more cheese sticks and Bulgarian or light yogurt instead. I reminded Rustam [...] Mental Health Case Management and therapy through [facility], but needs a new psychiatrist for medication management. Last week we left a message to schedule with a Jimena French provider, but Rustam states he did not receive a return call. We called again today and scheduled a video visit with Dr Darnell on 10/24/19. Rustam states his , Rosetta, will help him install Helixis on his phone and we can practice [...] identified: Finance and Emotional. BG Goals: Health Longterm Lab Goal <7 Pre-meal: 70-130 mg/dL PPG: [...] on 09/24/19. Scheduled appt with Jimena French omelett.es on 10/24/19. Rustam to call if symptoms of hypoglycemia or readings < 70 mg/dL. Rustam verbalized understanding and agreed with plan of care and follow up. documented in this encounter Plan of Treatment Not on filedocumented as of this encounter Visit Diagnoses Not on filedocumented in this encounter Care Teams Retail Cosmetics Sales Counter Manager Relationship Specialty Start Date End Date Gagandeep Hinojosa MD PCP - General 05/17/12 [facility] [place] [address] Vane Zarate Psychiatrsamantha Psychiatry 03/22/12 [facility] Psychotherapist 08/04/17 [facility] Tie Presser 09/13/17 documented as of this encounter
--- OUTSIDE RECORDS SUMMARY | 2022-02-14 14:55 | XMS_ITS | Encounter Summary ---
:1970 Author Organization [employer] Address [address] [place] [address] Care Team Providers Name Role Phone Gagandeep Michaud MD Primary Care Provider Reason for Visit Reason Comments Refill risperiDONE (RISPERDAL) 3 MG tablet [Pharmacy Med Name: risperiDONE 3 MG Oral Tablet] Encounter Details Date Type Department Care Team Description 10/28/2019 Refill Gagandeep Storm, Refrose mary l (risperiDONE Medicine MD (RISPERDAL) [address] MG tablet [address] [facility] [facility] [Pharmacy Med Name: [place] [address] [place] [address] risperiDONE 3 MG Oral [phone] (Wo rk) Tablet]) Social History Tobacco Use [...] MICHAUD) Next scheduled visit: None Powered by [employer] Reference: [id number], 10/28/2019 2:48:42 PM CDT, Pool: MANUEL REFILL ([id number]) documented in this encounter Plan of Treatment Not on filedocumented as of this encounter Visit Diagnoses Not on filedocumented in this encounter Care Teams Air Brake Rigger Relationship Specialty Start Date End Date Gagandeep Michaud MD PCP - General 05/17/[address] [place] [address] [place] [address] Vane Zarate Psychiatrist Psychiatry 03/22/12 [facility] Health Psychotherapist 08/04/17 [facility] Garage Construction Equipment Mechanic 09/13/17 documented as of this encounter
--- OUTSIDE RECORDS SUMMARY | 2022-02-14 14:55 | XMS_ITS | Encounter Summary ---
:1970 Author Organization [facility] Address [address] [place] [address] Care Team Providers Name Role Phone Gagandeep Hinojosa MD Primary Care Provider Reason for Visit Reason Comments HYPOGLYCEMIA Encounter Details Date Type Department Care Team Description 10/05/2019 Nurse Triage [facility] Gagandeep Hinojosa MD HYPOGLYCEMIA 14[address] [facility] . 1415 [place] [address] [place] [address] [phone] (Wo rk) Social History Tobacco Use Types [...] 10/05/2019 5:11 PM CDT Mark Pittman RN, Tension Machine Operator as OFE. Appt scheduled to speak with [...] unknown Protocols used: DIABETES - LOW BLOOD [id number] documented in this encounter Plan of Treatment Not on filedocumented as of this encounter Visit Diagnoses Not on filedocumented in this encounter Care Teams Printed Circuit Boards Plasma Etcher Relationship Specialty Start Date End Date Gagandeep Hinojosa MD PCP - General 05/17/[address] [place] [address] Vane Zarate Psychiatrist Psychiatry 03/22/12 [facility] Health Psychotherapist 08/04/17 [facility] Community Dietitian 09/13/17 documented as of this encounter
--- OUTSIDE RECORDS SUMMARY | 2022-02-14 14:55 | XMS_ITS | Encounter Summary ---
:1970 Author Organization [employer] Address [address] [address] Care Team Providers Name Role Phone Gagandeep Hinojosa MD Primary Care Provider Reason for Visit Reason Comments FOLLOW-UP,DIABETES Encounter Details Date Type Department Care Team Description 10/08/2019 Care Coord Phone Judy Luke R N FOLLOW-UP,DIABETES Medicine [address] [place] [address] [place] [address] [place] [address] [phone] Social History Tobacco Use Types Packs/Day Years [...] RN - 10/08/2019 2:44 PM CDT RN Cco & President - Diabetes Follow-Up Current diabetes medication regimen: [...] medication arrived. The samples were entered into [employer] and verified by Dr Foster. The medication is stored in the injection room refrigerator and damaris ilable for berry picker at his earliest convenience. Teach back method used to verify understanding. Shared plan: Continue current insulin and medication regimen, as prescribed. Record foods eaten prior to all BG readings >200. If preprandial BG is >200, add 1 unit for every 50 points over 200. supply cataloguer Tresiba samples at earliest convenience. Phone follow [...] Primary documented in this encounter Care Teams Cooky Machine Operator Relationship Specialty Start Date End Date Gagandeep Hinojosa MD PCP - General 05/17/12 [facility] [place] [address] Vane Zarate Psychiatrist Psychiatry 03/22/12 [facility] Psychotherapist 08/04/17 [facility] Sub Assembly Team Worker 09/13/17 documented as of this encounter
--- OUTSIDE RECORDS SUMMARY | 2022-02-14 14:55 | XMS_ITS | Encounter Summary ---
:1970 Author Organization [employer] Address [address] [place] [address] Care Team Providers Name Role Phone Gagandeep Hinojosa MD Primary Care Provider Reason for Visit Reason Comments NAIL PROBLEM Left great toenail injury Encounter Details Date Type Department Care Team Description 09/20/2019 Office Visit [facility] Felipe T raumatic avulsion of nail plate of toe, initial encounter (Primary Dx); MedSurg DPM Type 2 diabetes mellitus with peripheral neuropathy (HRC) [address] [place] [address] [place], [place] [phone] (Wo rk) Social History Tobacco Use Types [...] care from the wound care nurse in [place]. He does have shoes and inserts which she received at [facility]. He presents today for evaluation of his left great toenail. He was seen at [facility] twice for this. His 1st visit was [...] fair amount of bleeding and presented to [facility]. The chart note from that [...] unspecified type diabetes mellitus with hyperosmolarity, uncontrolled ([facility]) 12/11/2010 ??? Type II or unspecified type diabetes mellitus without mention of complication, uncontrolled ([facility]) 12/11/2010 Patient Active Problem List Diagnosis Date Noted ??? Non-proliferative diabetic retinopathy ([facility]) 05/02/2019 ??? Hyponatremia 01/16/2018 ??? Tinea versicolor 07/18/2015 ??? Tobacco use disorder ([facility]) 10/26/2012 ??? Anemia 05/02/2012 Overview Note: Anemia, unspecified ??? Microalbuminuria 02/04/2012 ??? ID, old ([facility]) 09/16/2011 ??? History of PTCA 09/16/2011 Overview Note: History of PTCA 04/2011 BMS RCA ??? Obesity, Class I, BMI 30-34.9 ([facility]) 09/16/2011 Overview Note: Body mass index is 31.16 kg/(m^2). ??? Hyperlipidemia with target LDL less than 70 ([facility]) 06/08/2011 Overview Note: Hyperlipidemia LDL goal < 70 ??? ASHD (arteriosclerotic heart disease) ([facility]) 05/04/2011 ??? Erectile dysfunction 01/22/2011 Overview Note: side effect Risperdal ??? Type 2 diabetes mellitus, uncontrolled ([facility]) 12/11/2010 Overview Note: Type II or unspecified type diabetes mellitus without mention of complication, uncontrolled ([facility]) ??? Dermatophytosis of body 09/04/2010 Overview Note: Tinea Corporis ??? Coronary atherosclerosis ([facility]) 12/22/2009 Overview Note: LW Modifier: mod RCA, negative nuclear stress test ; CAD ??? Nonspecific abnormal results of liver function study 12/22/2009 Overview Note: Liver Function Tests Abnormal ??? Bipolar I disorder ([facility]) 09/15/2005 Overview Note: LW Onset: [id number] ; Bipolar I Dis OBJECTIVE: DP and [...] appears from reading his initial note from [facility] that the nail was loose and then the note 2 days later from [facility] indicating that he had considerable bleeding from a traumatic nail avulsion. I discussed with the patient that I would like him to apply bacitracin and acovering for the next 1 week. If he does develop any type of redness, he will contact us immediately. He does get his nails trimmed at [facility]. All questions answered. The patient was discharged ambulatory and in stable condition. No orders of the defined types were placed in this encounter. No orders of the defined types were placed in this encounter. (This note was created using voice recognition software and may contain some glue wheel operator errors) documented in this encounter Plan of Treatment Not on filedocumented as of this encounter Visit Diagnoses Diagnosis Traumatic avulsion of nail plate of toe, initial encounter - Primary Type 2 diabetes mellitus with peripheral neuropathy (C) documented in this encounter Care Teams Residential Program Director Relationship Specialty Start Date End Date Gagandeep Hinojosa MD PCP - General 05/17/12 14[address] [facility] [place] [address] Vane Zarate Psychiatrist Psychiatry 03/22/12 [facility] Psychotherapist 08/04/17 [facility] Head Up Operator 09/13/17 documented as of this encounter
--- OUTSIDE RECORDS SUMMARY | 2022-02-14 14:55 | XMS_ITS | Encounter Summary ---
:1970 Author Organization [employer] Address [address] [place] [address] Care Team Providers Name Role Phone Gagandeep Michaud MD Primary Care Provider Reason for Visit Reason Comments Refill QUEtiapine (SEROQUEL) 200 MG tablet [Pharmacy Med Name: QUEtiapine Fumarate 200 MG Oral Tablet] Encounter Details Date Type Department Care Team Description 10/14/2019 Refill Gagandeep Storm, Rochelle l (QUEtiapine Medicine MD (SEROQUEL) 200 MG tablet [address] [facility] [facility] [Pharmacy Med Name: [place] [address] [place] [address] QUEtiapine Fumarate 200 [phone] (Wo rk) MG Oral Tablet]) Social History [...] MICHAUD) Next scheduled visit: None Powered by [employer], Reference: [id number], 10/14/2019 4:31:34 PM CDT, Pool: MANUEL REFILL ([id number]) documented in this encounter Plan of Treatment Not on filedocumented as of this encounter Visit Diagnoses Not on filedocumented in this encounter Care Teams College Physics Instructor Relationship Specialty Start Date End Date Gagandeep Michaud MD PCP - General 05/17/[address] [place] [address] [place] [address] Vane Zarate Psychiatrist Psychiatry 03/22/12 [facility] Psychotherapist 08/04/17 [facility] Compensation And Benefits Analyst 09/13/17 documented as of this encounter
--- OUTSIDE RECORDS SUMMARY | 2022-02-14 14:55 | XMS_ITS | Encounter Summary ---
:1970 Author Organization [employer] Address [address], [place] [address] Care Team Providers Name Role Phone Gagandeep Hinojosa MD Primary Care Provider Reason for Visit Reason Comments FOLLOW-UP,DIABETES Encounter Details Date Type Department Care Team Description 12/04/2019 Care Coord Office Judy Luke RN FOLLOW-UP,DIABETES Visit Medicine [address] [place] [address] . [place] [address] [place] [phone] Social History Tobacco Use Types Packs/Day Years [...] to review sensor data, glucose patterns. RN Entertainer & Comic Visit Pt: Timur Krishnamurthy Referred by: Gagandeep [...] Rustam is over income for Medical Assistance, [employer], as well as, pharmaceutical assistance. Blood Glucose [...] Primary documented in this encounter Care Teams Surveillance System Monitor Relationship Specialty Start Date End Date Gagandeep Hinojosa MD PCP - General 05/17/12 1415 [facility] [place] [address] Vane Zarate Psychiatrsamantha Psychiatry 03/22/12 [facility] Psychotherapist 08/04/17 [facility] Raker Buffing Wheel 09/13/17 documented as of this encounter
--- OUTSIDE RECORDS SUMMARY | 2022-02-14 14:55 | XMS_ITS | Encounter Summary ---
:1970 Author Organization [employer] Address [address], [place] [address] Care Team Providers Name Role Phone Gagandeep Hinojosa MD Primary Care Provider Reason for Visit Reason Comments FOLLOW-UP,DIABETES Encounter Details Date Type Department Care Team Description 10/30/2019 Care Coord Office Judy Luke RN FOLLOW-UP,DIABETES Visit Medicine [facility] . [place] [address] [place] [phone] Social History Tobacco Use Types Packs/Day Years [...] encounter Progress Notes Judy Pittman RN - 10/30/2019 11:00 AM CDT RN Tire Room Supervisor Visit Pt: Timur Krishnamurthy Referred [...] One Touch Ultra CURRENT GLUCOSE PATTERNS: since 10/24/19 Fastin - 202, (248, 248 ice cream and candy bar) 2 hours after dinner: 152 - 212, 299 Hypoglycemia (previous two weeks): none ASSESSMENT: Due to the COVID-19 pandemic, this visit was completed by telephone. Medication Rustam is currently using a regimen of metformin, along with Tresiba U200 and Relion Regular insulin.He continues to use a Regular insulin sliding scale at two units per 50 points >200, which Rustam states works well. However, Rustam had five BG readings >200 over the past week, which he attributes to missing doses of insulin here and there. Rustam commented that if his previous BG is good enough, he will skip his next reading. I stressed that if he doesn't test, he will not be able to accurately calculate his insulin dose using his sliding scale to improve his BG readings. I encouraged Rustam to test regularly, so he can act like a pancreas and cover what he is eating. Blood Glucose Rustam has not been SMBG tid, as directed. Rather, he is testing only bid. I stressed the importance of consistent testing, as it is the only way to know if his BG readings are at goal or if he needs additional insulin. Also, testing is essential for safety while taking insulin. Rustam understands. Diet Rustam states he tries to keep his CHO intake at 45-60 grams of CHO per meal. He knows that when he indulges on high CHO foods, such as ice cream and candy, it results in BG readings >200. Rustam doesn't always record the foods eaten prior to all BG readings >200. I reminded Rusatm that recording these foods will help him learn which foods cause his BG to increase, so he can cover these foods with more insulin or decrease his portion the next time he eats the particular food. Hypoglycemia I reviewed how to use Routine 15 again and Rustam reports he has access to glucose tablets at all times now. Follow up Rustam will focus on his unit/CHO ratio and sliding scale calculations to improve BG readings further. He will resume SMBG at least tid and record his readings. We will follow up in 2 weeks, sooner if he experiences hypoglycemia or has questions. Family/social support: Patient attended today's visit by telephone. He currently lives with spouse. Current activity regimen: not discussed today Patient barrier(s) to learning identified: Finance and Emotional. BG Goals: Health Fdc Lab Goal <7 Pre-meal: 70-130 mg/dL PPG: [...] record readings. Phone follow up scheduled on 11/13/19. Rustam to call if symptoms of hypoglycemia or readings < 70 mg/dL. Rustam verbalized understanding and agreed with plan of care and follow up. documented in this encounter Plan of Treatment Not on filedocumented as of this encounter Visit Diagnoses Not on filedocumented in this encounter Care Teams Electric Sealing Machine Operator Relationship Specialty Start Date End Date Gagandeep Hinojosa MD PCP - General 05/17/12 [address] [facility] [place] [address] Vane Zarate Psychiatrist Psychiatry 03/22/12 [facility] Psychotherapist 08/04/17 [facility] [place] Middleware Architect 09/13/17 documented as of this encounter
--- OUTSIDE RECORDS SUMMARY | 2022-02-14 14:55 | XMS_ITS | Encounter Summary ---
:1970 Author Organization [employer] Address [address], [place] [address] Care Team Providers Name Role Phone Gagandeep Hinojosa MD Primary Care Provider Reason for Visit Reason Comments FOLLOW-UP,DIABETES Encounter Details Date Type Department Care Team Description 10/03/2019 Care Coord Phone Judy Luke R N FOLLOW-UP,DIABETES Medicine [address] [place] [address] . [place] [address] [place] [address] [phone] Social History Tobacco Use Types Packs/Day Years [...] RN - 10/03/2019 4:32 PM CDT RN Pie Baker - Diabetes Follow-Up Current diabetes medication regimen: [...] on filedocumented in this encounter Care Teams Apple Packing Header Relationship Specialty Start Date End Date Gagandeep Hinojosa MD PCP - General 05/17/12 [address] [place] [address] Vane Zarate Psychiatrist Psychiatry 03/22/12 [facility] Psychotherapist 08/04/17 [facility] Ore Bridge Operator 09/13/17 documented as of this encounter
--- OUTSIDE RECORDS SUMMARY | 2022-02-14 14:55 | XMS_ITS | Encounter Summary ---
:1970 Author Organization [employer] Address [address], [place] [address] Care Team Providers Name Role Phone Gagandeep Hinojosa MD Primary Care Provider Reason for Visit Reason Comments FOLLOW-UP,DIABETES Encounter Details Date Type Department Care Team Description 10/16/2019 Care Coord Office Judy Luke RN FOLLOW-UP,DIABETES Visit [place] [address] . [place] [address] [place] [phone] Social History Tobacco Use Types Packs/Day Years [...] RN - 10/16/2019 11:00 AM CDT RN Lean Manufacturing Leader Visit Pt: Timur Krishnamurthy Referred by: Gagandeep [...] trying to eat more cheese sticks and Romanian or light yogurt for snacks. I reminded [...] on filedocumented in this encounter Care Teams Pulp Grinder Feeder Relationship Specialty Start Date End Date Gagandeep Hinojosa MD PCP - General 05/17/[address] [place] [address] Vane Zarate Psychiatrist Psychiatry 03/22/12 [facility] Psychotherapist 08/04/17 [facility] Insurance Claims Analyst 09/13/17 documented as of this encounter
--- OUTSIDE RECORDS SUMMARY | 2022-02-14 14:55 | XMS_ITS | Encounter Summary ---
:1970 Author Organization [employer] Address [address] [place] [address] Care Team Providers Name Role Phone Gagandeep Michaud MD Primary Care Provider Reason for Visit Reason Comments Refill metFORMIN (GLUCOPHAGE) 500 M G tablet [Pharmacy Med Name: metFORMIN HCl 500 MG Oral Tablet] Encounter Details Date Type Department Care Team Description 10/03/2019 Refill [place] [facility] Gagandeep Michaud, Refrose mary l (metFORMIN Medicine MD (GLUCOPHAGE) [address] tablet [[place] [address] [place] [address] Name: metFORMIN HCl 500 [phone] (Wo rk) MG Oral Tablet]) Social History [...] MOUTH TWICE DAILY WITH MEALS Interface, Out [employer] Query - 10/03/2019 12:48 PM CDT metFORMIN (GLUCOPHAGE) 500 MG tablet [Pharmacy Med Name: metFORMIN HCl 500 MG Oral Tablet] Medication started: 01/16/2014 Last ordered by GAGANDEEP MICHAUD F: 05/22/2019 (134 days ago) QTY: [...] : 11.4 % on 08/28/2019 Powered by [employer], Reference: [id number], 10/03/2019 12:48:11 PM CDT, Pool: MANUEL REFILL ([id number]) documented in this encounter Plan of Treatment Not on filedocumented as of this encounter Visit Diagnoses Diagnosis Uncontrolled type 2 diabetes mellitus wi thout complication, without long-term current use of insulin documented in this encounter Care Teams Sales Representative Health Insurance Relationship Specialty Start Date End Date Gagandeep Michaud MD PCP - General 05/17/12 [address] [facility] [place] [address] Vaen Zarate Psychiatrist Psychiatry 03/22/12 [facility] Psychotherapist 08/04/17 [facility] Database Coordinator 09/13/17 documented as of this encounter
--- OUTSIDE RECORDS SUMMARY | 2022-02-14 14:55 | XMS_ITS | Encounter Summary ---
:1970 Author Organization [employer] Address [address], [place] [address] Care Team Providers Name Role Phone Gagandeep Hinojosa MD Primary Care Provider Reason for Visit Reason Comments FOLLOW-UP,DIABETES Encounter Details Date Type Department Care Team Description 09/24/2019 Care Coord Office Judy Luke RN FOLLOW-UP,DIABETES Visit Medicine [facility] . [place] [address] [place] [phone] Social History Tobacco Use Types Packs/Day Years [...] requesting a return call. Please transfer to [phone]. Unable to reach Rustam after multiple attempts and messages left. Provided contact information and encouraged to call back to review BG readings. documented in this encounter Plan of Treatment Not on filedocumented as of this encounter Visit Diagnoses Not on filedocumented in this encounter Care Teams Rn Trauma Relationship Specialty Start Date End Date Gagandeep Hinojosa MD PCP - General 05/17/12 92[address] [facility] [place] [address] Vane Zarate Psychiatrist Psychiatry 03/22/12 [facility] Psychotherapist 08/04/17 [facility] Rodeo Clown 09/13/17 documented as of this encounter
--- OUTSIDE RECORDS SUMMARY | 2022-02-14 14:56 | XMS_ITS | Encounter Summary ---
:1970 Author Organization [employer] Address [address], [place] [address] Care Team Providers Name Role Phone Gagandeep Hinojosa MD Primary Care Provider Reason for Visit Reason Onset Date Comments Refill 08/24/2019 Patient Calling Back 08/24/2019 Encounter Details Date Type Department Care Team Description 08/24/2019 Refill [facility] Gagandeep Hniojosa, Refil l; Patient Calling Medicine MD Back 1415 [facility] . [address] [place] [address] [place], [place] [address] (Wo rk) Social History Tobacco Use Types [...] filedocumented in this encounter Care Teams Negative Cutter Relationship Specialty Start Date End Date Gagandeep Hinojosa MD PCP - General 05/17/12 14[address] [facility] [address] Vane Zarate Psychiatrist Psychiatry 03/22/12 [facility] Psychotherapist 08/04/17 [facility] Abnormal Psychology Teacher 09/13/17 documented as of this encounter
--- OUTSIDE RECORDS SUMMARY | 2022-02-14 14:56 | XMS_ITS | Encounter Summary ---
:1970 Author Organization [employer] Address [address] [place] [address] Care Team Providers Name Role Phone Gagandeep [...] Medicine MD Joanne (Pt has appointment [address] 1415 [facility] tomorrow for f/u [place] [address] [address] diabetes, would like [phone] [place] [phone] , to discuss [phone] possible diagno sis of (Work) Parkinson's, (declined [...] 1 week Protocols used: WEAKNESS (GENERALIZED) AND [id number] ND OPERATOR Analy Elias - 05/30/2019 3:32 PM CST [...] a pool number. Please sign/close phone encounter ND OPERATOR documented in this encounter Plan of Treatment Not on filedocumented as of this encounter Visit Diagnoses Not on filedocumented in this encounter Care Teams Labor Economics Professor Relationship Specialty Start Date End Date Gagandeep Hinojosa MD PCP - General 05/17/12 1415 [facility] [place] [address] Vane Zarate Psychiatrsamantha Psychiatry 03/22/12 [facility] Psychotherapist 08/04/17 [facility] Manufacturing Quality Engineer 09/13/17 documented as of this encounter
--- OUTSIDE RECORDS SUMMARY | 2022-02-14 14:56 | XMS_ITS | Encounter Summary ---
:1970 Author Organization [employer] Address [address] [place] [address] Care Team Providers Name Role Phone Gagandeep Michaud MD Primary Care Provider Encounter Details Date Type Department Care Team Description 05/21/2019 Refill Order [facility] Gagandeep Michaud MD 1415 [facility] . [address] [facility] [place] [address] [place] [address] [phone] (Wo rk) Social History Tobacco Use Types [...] Labs to be addressed at future visit. LIANCE REVIEW OFFICER Interface, Out Surescripts Prov Query - 05/21/2019 5:31 AM CST SCHEDULE THE FOLLOWING: - HBA1C (PN ONLY) BY: Now (Due as of 02/26/2019 for metFORMIN (GLUCOPHAGE) 500 MG tablet) - LAST QUALIFYING VISIT WITH GAGANDEEP MICHAUD: 05/02/2019 - NEXT SCHEDULED VISIT: None - NEXT LAB APPOINTMENT: None Powered by [email or web address], Reference: [id number], 05/21/2019 5:31:49 AM Jaxon GRANGER: MANUEL MOORE ([id number]) LIANCE REVIEW OFFICER documented in this encounter Plan of Treatment Not on filedocumented as of this encounter Visit Diagnoses Diagnosis Encounter for long-term (current) use of medications - Primary Encounter for long-term (current) use of other medications documented in this encounter Care Teams Armor Reconnaissance Specialist Relationship Specialty Start Date End Date Gagandeep Michaud MD PCP - General 05/17/12 1415 [facility] [place] [address] Vane Zarate Psychiatrist Psychiatry 03/22/12 [facility] Psychotherapist 08/04/17 [facility] Damage Appraiser 09/13/17 documented as of this encounter
--- OUTSIDE RECORDS SUMMARY | 2022-02-14 14:56 | XMS_ITS | Encounter Summary ---
:1970 Author Organization [facility] Address [address] [address] Care Team Providers Name Role Phone Gagandeep Hinojosa MD Primary Care Provider Reason for Visit Reason Comments Post Hospital Discharge Follow Up Encounter Details Date Type Department Care Team Description 06/19/2019 Telephone [facility] Gagandeep Hinojosa, Post Hospital Discharge Medicine MD Follow Up 1415 [facility] . 1415 [place] [address] [place] [address] [phone] (Wo rk) Social History Tobacco Use Types [...] follow up call completed. See doc flowsheet: HOSWA for details. CTOR CHILD ABUSE THERAPY documented in this encounter Plan of Treatment Not on filedocumented as of this encounter Visit Diagnoses Not on filedocumented in this encounter Care Teams Workers Compensation Administrator Relationship Specialty Start Date End Date Gagandeep Hinojosa MD PCP - General 05/17/12 1415 [place] [address] Vane Zarate Psychiatrist Psychiatry 03/22/12 [facility] Mental [facility] Psychotherapist 08/04/17 [facility] Taxicab Coordinator 09/13/17 documented as of this encounter
--- OUTSIDE RECORDS SUMMARY | 2022-02-14 14:56 | XMS_ITS | Encounter Summary ---
:1970 Author Organization [facility] Address [address], [place] [address] Care Team Providers Name Role Phone Gagandeep Hinojosa MD Primary Care Provider Reason for Visit Reason Comments Medication Problems Encounter Details Date Type Department Care Team Description 09/10/2019 Nurse Triage [facility] Gagandeep Hinojosa, Medic ation Problems Medicine 1415 [facility] . 1415 [place] [address] [place] [address] [phone] (Wo rk) Social History Tobacco Use Types [...] (PSC), please warm transfer call to extension [facility] or triage to discuss. If no [...] - Benztropine. Clinician Next Step: Route to [facility] to follow up Specific Request(s): 1. Pt [...] to answer question Protocols used: MEDICATION QUESTION [id number] documented in this encounter Plan of Treatment Not on filedocumented as of this encounter Visit Diagnoses Not on filedocumented in this encounter Care Teams Radiation Therapy Technologist Relationship Specialty Start Date End Date Gagandeep Hinojosa MD PCP - General 05/17/12 9425 [facility] [place] [address] Vane Zarate Psychiatrist Psychiatry 03/22/12 [facility] Mental [facility] Psychotherapist 08/04/17 [facility] Statistical Geneticist 09/13/17 documented as of this encounter
--- OUTSIDE RECORDS SUMMARY | 2022-02-14 14:56 | XMS_ITS | Encounter Summary ---
:1970 Author Organization [employer] Address [address] [address] Care Team Providers Name Role Phone Gagandeep Michaud MD Primary Care Provider Reason for Visit Reason Onset Date Comments Refill 08/14/2019 busPIRone (BUSPAR) 1 0 MG tablet Encounter Details Date Type Department Care Team Description 08/14/2019 Refill [facility] Gagandeep Michaud, Refil l (busPIRone Medicine (BUSPAR) 10 MG tablet) 1415 [facility] . 1415 [place] [address] [place], [place] [address] (Wo rk) Social History Tobacco Use Types [...] visit: 08/28/2019 (in Family Practice) Powered by [employer], Reference: [id number], 08/14/2019 4:21:05 PM CDT, Pool: MANUEL MOORE ([id number]) documented in this encounter Plan of Treatment Not on filedocumented as of this encounter Visit Diagnoses Not on filedocumented in this encounter Care Teams Conservation Of Resources Commissioner Relationship Specialty Start Date End Date Gagandeep Michaud MD PCP - General 05/17/12 [facility] [place] [address] Vane Zarate Psychiatrist Psychiatry 03/22/12 [facility] Health Psychotherapist 08/04/17 [facility] Truck Service Manager 09/13/17 documented as of this encounter
--- OUTSIDE RECORDS SUMMARY | 2022-02-14 14:56 | XMS_ITS | Encounter Summary ---
:1970 Author Organization [employer] Address [address], [place] [address] Care Team Providers Name Role Phone Gagandeep Hinojosa MD Primary Care Provider Reason for Referral (Routine) - Closed Specialty Diagnoses / Procedures Referred By Contact Refer red To Contact Diagnoses Atrial fibrillation, unspecified type (HRC) Zara Fox MD Procedures OUTREACH ZIOPATCH RECORDER [address] [place], [place] [address] Referral ID Status Reason Start Date Expiration Date Visits Requ ested Visits Authorized [id number] Closed 07/12/2019 10/10/2020 1 1 Encounter Details Date Type Department Care Team Description 07/04/2019 Hospital Encounter Heart & Vascular Atria l fibrillation, Center unspecified typ e (HRC) Electrocardiogram, (Primary Dx) Holter, Event Record er [address] [place] [address] Social History Tobacco Use Types [...] CDT unspecified type procedure a re in ([facility]) the results section. documented in this encounter Results OUTREACH ZIOPATCH RECORDER (07/04/2019 11:25 AM CDT) Narrative POCT - 07/04/2019 11:25 AM CDT Zio XT Final Report for Timur Krishnamurthy Date of : [birth year] (49 yrs) Gender: Male Prescribing Clinician: Dr. Ofelia Fox Referring Clinician: Dr. Scar Hinojosa Managing Location: [facility] [place]note 2] Primary Indication (I48.91): Unspecified atrial fibrillation Enrollment [...] documented in this encounter Care Teams Car Dumper Relationship Specialty Start Date End Date Gagandeep Hinojosa MD PCP - General 05/17/12 1415 [facility] [place] [address] Vane Zarate Psychiatrist Psychiatry 03/22/12 [facility] Psychotherapist 08/04/17 [facility] Placement Coordinator 09/13/17 documented as of this encounter
--- OUTSIDE RECORDS SUMMARY | 2022-02-14 14:56 | XMS_ITS | Encounter Summary ---
:1970 Author Organization [employer] Address [address], [place] [address] Care Team Providers Name Role Phone Gagandeep Hinojosa MD Primary Care Provider Reason for Visit Reason Onset Date Comments EXAM,NOS 02/07/2019 Encounter Details Date Type Department Care Team Description 02/07/2019 Office Visit Tim Peterson MD [address] [place] [address] Health examination of Medicine Nurse, [facility] defined subpopulation [address] [facility] E (Primary Dx) [place] [address] Social History Tobacco Use Types Packs/Day [...] Primary documented in this encounter Care Teams Water Resource Consultant Relationship Specialty Start Date End Date Gagandeep Hinojosa MD PCP - General 05/17/12 [facility] [place] [address] Vane Zarate Psychiatrsamantha Psychiatry 03/22/12 [facility] Mental Health Psychotherapist 08/04/17 [facility] Momd Teacher 09/13/17 documented as of this encounter
--- OUTSIDE RECORDS SUMMARY | 2022-02-14 14:56 | XMS_ITS | Encounter Summary ---
:1970 Author Organization [employer] Address [address] [place] [address] Care Team Providers Name Role Phone Gagandeep Hinojosa MD Primary Care Provider Encounter Details Date Type Department Care Team Description 08/28/2019 Lab Visit [facility] Uncontrolled type [address] mellitus with hyperglycemia [place] [address] ([facility]) [phone] Social History Tobacco Use Types Packs/Day Years [...] P athologist Signature Albumin, 265.4 mg/L 08/28/2019 [facility] Urine, Random 5:06 PM CDT LABORATORY Creatinine, 49 >20 mg/dL 08/28/2019 [facility] Urine, Random 5:06 PM CDT LABORATORY Albumin/Creati 542 (H) <30 mg/g 08/28/2019 [facility] nine Ratio, 5:06 PM CDT LABORATORY Urine, Random Specimen Anatomical Collection Method Collection Time Receive d Time (Source) Location / / Volume Laterality Urine,random Non-blood 08/28/2019 2:10 PM 0 2:10 Collection / CDT PM CDT Unknown Gagandeep Hinojosa MD LAB_1 Performing Organization Address City/[facility]/ZIP Code Phon e Number [facility] [address] [place], [place] [phone] (ABNORMAL) Creatinine / GFR (08/28/2019 2:06 PM CDT) [facility] [employer] Method Time Signature Creatinine 0.70 (L) 0.73 - 08/28/2019 [facility] 1.18 mg/dL 5:02 PM CDT LABORATORY GFR, Estimated >60 >60 08/28/2019 [facility] mL/min/1.7 5:02 PM CDT LABORATORY 3m2 GFR, Est If >60 >60 08/28/2019 [facility] mL/min/1.7 5:02 PM CDT LABORATORY Faroese 3m2 Specimen Anatomical Collection Method / Collection Time Recei abimael Time (Source) Location / Volume Laterality Blood Venipuncture / 08/28/2019 2:06 08/28/2019 2:06 Unknown PM CDT PM CDT Gagandeep Hinojosa MD LAB_1 Performing Organization Address City/[facility]/ZIP Code Phon e Number [facility] [address] [place] [address] (ABNORMAL) POCT Glycosylated Hemoglobin (HB A1C) (08/28/2019 2:06 PM CDT) [facility] [employer] Method Time Signature Hemoglobin A1C 11.4 (H) <=5.6 % 08/28/2019 [facility] (Rapid) 2:15 PM CDT LABORATORY Specimen Anatomical Collection Method / Collection Time Recei abiamel Time (Source) Location / Volume Laterality Blood Venipuncture / 08/28/2019 2:06 08/28/2019 2:06 Unknown PM CDT PM CDT Narrative [facility] - 08/28/2019 2:15 PM CDT This Rapid A1c test is designed for charlotte toring patients with an established diagnosis of diabetes mellitus. This rapid method is not suitable to establish the initial diagnosis of diabetes mellitus. Performe d using Point of Care Instrumentation. Gagandeep Hinojosa MD LAB_1 Performing Organization Address City/State/ZIP Code Phon e Number [facility] [address] [place] [phone] documented in this encounter Visit Diagnoses Diagnosis Uncontrolled type 2 diabetes mellitus wi th hyperglycemia (HRC) documented in this encounter Care Teams Putty Worker Relationship Specialty Start Date End Date Gagandeep Hinojosa MD PCP - General 05/17/12 [address] [place] [address] Vane Zarate Psychiatrsamantha Psychiatry 03/22/12 [facility] Psychotherapist 08/04/17 [facility] Manager Location 09/13/17 documented as of this encounter
--- OUTSIDE RECORDS SUMMARY | 2022-02-14 14:56 | XMS_ITS | Encounter Summary ---
:1970 Author Organization [facility] Address [address] [place] [address] Care Team Providers Name Role Phone Gagandeep Hinojosa MD Primary Care Provider Reason for Visit Reason Comments Disease Registry Encounter Details Date Type Department Care Team Description 02/28/2019 Telephone [facility] Gagandeep Hinojosa MD Disease Registry 1415 [facility] . 1415 [place] [address] [place] [address] [phone] (Wo rk) Social History Tobacco Use Types [...] FOR PT TO CALL BACK TO SCHEDULE [phone] MS ADJUSTOR Isaías Blair LPN - 02/28/2019 2:23 PM CST Patient is overdue for Diabetes Mellitus labs please call and make a lab only appointment MS ADJUSTOR documented in this encounter Plan of Treatment Not on filedocumented as of this encounter Visit Diagnoses Not on filedocumented in this encounter Care Teams It Service Technician Relationship Specialty Start Date End Date Gagandeep Hinojosa MD PCP - General 05/17/12 1415 [facility] [place] [address] Vane Zarate Psychiatrist Psychiatry 03/22/12 [facility] Health Psychotherapist 08/04/17 [facility] Kiln Door Builder 09/13/17 documented as of this encounter
--- OUTSIDE RECORDS SUMMARY | 2022-02-14 14:56 | XMS_ITS | Encounter Summary ---
:1970 Author Organization [employer] Address [address] [place] [address] Care Team Providers Name Role Phone Gagandeep Hinojosa MD Primary Care Provider Reason for Referral Consult/Transfer Care (Routine) - Closed Specialty Diagnoses / Procedures Referred By Contact Refer red To Contact Diagnoses Type 2 diabetes mellitus with diabetic polyneuropathy, with long-term current use of insulin (HRC) Gagandeep Hinojosa MD 1414 [facility] [place] [address] Referral ID Status Reason Start Date Expiration Date Visits Requ ested Visits Authorized [id number] Closed 08/28/2019 11/26/2020 1 1 Scheduling Instructions Your provider has recommended an appoint ment with [facility]. You may call [phone] to schedule your appoi ntment. If you [...] Rubio MD Bipolar I disorder (HRC); [address] 1415 [facility] Tobacco use disorder; [place] [address] [place] Drug-induced tremor; [phone] [place] Essential hyper tension; [address] Non-proliferative diabetic retinopathy ( [facility]); [phone] ASHD (arteriosc lerotic heart disease); (Work) Uncontrolled type 2 diabetes mellitus wi th hyperglycemia ([facility]); [phone] Diabetes carlos montes with complication ([facility]); (Fax) Diabetes carlos montes with neurological manifestations, uncontrolled (HR); Diabetic polyne uropathy associated with type 2 diabetes mellitus ([facility]) Social History Tobacco Use Types Packs/Day [...] P athologist Signature Albumin, 351.2 mg/L 12/04/2019 [place] Urine, Random 3:54 PM CDT LABORATORY Creatinine, 106 >20 mg/dL 12/04/2019 [place] Urine, Random 3:54 PM CDT LABORATORY Albumin/Creati 331 (H) <30 mg/g 12/04/2019 [place] nine Ratio, 3:54 PM CDT LABORATORY Urine, Random Specimen Anatomical Collection Method Collection Time Receive d Time (Source) Location / / Volume Laterality Urine Non-blood 12/04/2019 10:10 12/04/2019 Collection / AM CDT 10:10 AM CDT Unknown Gagandeep Hinojosa MD LAB_1 Performing Organization Address City/[facility]/ZIP Code Phon e Number [facility] [address] [place] [address] (ABNORMAL) Lipid Panel and Direct LDL(If Needed) - in 3 months (12/04/2019 10:06 AM CDT) Patholo gist Method Time Signature Cholesterol 116 0 - 199 12/04/2019 [place] mg/dL 4:03 PM CDT LABORATORY Triglyceride 137 <=149 12/04/2019 [place] mg/dL 4:03 PM CDT LABORATORY HDL Cholesterol 35 (L) >=40 mg/dL 12/04/2019 [place] 4:03 PM CDT LABORATORY LDL, Calculated 54 <130 mg/dL 12/04/2019 [place] 4:03 PM CDT LABORATORY Non HDL Chol, 81 mg/dL 12/04/2019 [place] Calculated 4:03 PM CDT LABORATORY Cholesterol/HDL 3.3 12/04/2019 [place] Ratio 4:03 PM CDT LABORATORY Hours Fasting 12 12/04/2019 [facility] 4:03 PM CDT LABORATORY Specimen Anatomical Collection Method / Collection Time Recei abimael Time (Source) Location / Volume Laterality Blood Venipuncture / 12/04/2019 10:06 0 Unknown AM CDT 10:06 AM CDT Gagandeep Hinojosa MD LAB_1 Performing Organization Address City/State/ZIP Code Phon e Number [facility] [address] [place] [address] [facility] [address] [place] [address], [place] Creatinine / GFR - in 3 months (12/04/2019 10:06 AM CDT) P athologist Signature Creatinine 0.80 0.73 - 12/04/2019 [place] 1.18 mg/dL 4:03 PM CDT LABORATORY GFR, Estimated >60 >60 12/04/2019 [place] mL/min/1.7 4:03 PM CDT LABORATORY 3m2 Specimen Anatomical Collection Method / Collection Time Recei abimael Time (Source) Location / Volume Laterality Blood Venipuncture / 12/04/2019 10:06 0 Unknown AM CDT 10:06 AM CDT Gagandeep Hinojosa MD LAB_1 Performing Organization Address [facility] Code [facility] e Number [facility] [address] [place] [address] (ABNORMAL) POCT Glycosylated Hemoglobin (HB A1C) - in 3 months (12/04/2019 10:06 AM CDT) Patholo gist Method Time Signature Hemoglobin A1C 11.3 (H) <=5.6 % 12/04/2019 [facility] (Rapid) 10:15 AM CDT LABORATORY Specimen Anatomical Collection Method / Collection Time Recei abimael Time (Source) Location / Volume Laterality Blood Venipuncture / 12/04/2019 10:06 0 Unknown AM CDT 10:06 AM CDT Narrative [facility] - 12/04/2019 10:15 A M CDT This Rapid A1c test is designed for charlotte toring patients with an established diagnosis of diabetes mellitus. This rapid method is not suitable to establish the initial diagnosis of diabetes mellitus. Performe d using Point of Care Instrumentation. Gagandeep Hinojosa MD LAB_1 Performing Organization Address City/[facility]/ZIP Code [facility] e Number [facility] [address] [place] [address] documented in this encounter Visit Diagnoses Diagnosis [...] Coronary atherosclerosis of unspecified type of vessel, hamilton or graft Uncontrolled type 2 diabetes mellitus [...] (HRC) documented in this encounter Care Teams Vp Research Relationship Specialty Start Date End Date Gagandeep Hinojosa MD PCP - General 05/17/[address] [place] [address] [place] [address] Vane Zarate Psychiatrist Psychiatry 03/22/12 [facility] Psychotherapist 08/04/17 [facility] Kerrick Kleaner Operator 09/13/17 documented as of this encounter
--- OUTSIDE RECORDS SUMMARY | 2022-02-14 14:56 | XMS_ITS | Encounter Summary ---
:1970 Author Organization [employer] Address [address] [address] Care Team Providers Name Role Phone Gagandeep Hinojosa MD Primary Care Provider Reason for Visit Reason Comments Patient Care Coordination Encounter Details Date Type Department Care Team Description 06/11/2019 Care Coord [facility] Deborah Rodrigues Patien t Care Phone Medicine [facility] Coordination [address] [place] [address] [place] [address] [phone] Social History Tobacco Use Types Packs/Day Years [...] Rodrigues LICSW - 06/11/2019 1:25 PM CST Electric Cutter Operator - Phone Call Contact with: Rustam [...] with plan of care and follow up. ENTRY OPERATOR documented in this encounter Plan of Treatment Not on filedocumented as of this encounter Visit Diagnoses Diagnosis Health fci, active care coordinati on - Primary documented in this encounter Care Teams Charge Lpn Relationship Specialty Start Date End Date Gagandeep Hinojosa MD PCP - General 05/17/[address] [place] [address] [place] [address] Vane Zarate Psychiatrist Psychiatry 03/22/12 [facility] Psychotherapist 08/04/17 [facility] Sales And Service Agent 09/13/17 documented as of this encounter
--- OUTSIDE RECORDS SUMMARY | 2022-02-14 14:56 | XMS_ITS | Encounter Summary ---
:1970 Author Organization [employer] Address [address] [place] [address] Care Team Providers Name Role Phone Gagandeep Hinojosa MD Primary Care Provider Reason for Visit Reason Comments APPOINTMENT REQUEST Encounter Details Date Type Department Care Team Description 02/22/2019 Care Coord Phone Judy Luke R N APPOINTMENT REQUEST [facility] 1415 [facility] [address] [facility] [place] [address] [place] [phone] Social History Tobacco Use Types Packs/Day Years [...] for patient to call me back at [phone] T LEVELER Judy Pittman RN - 02/22/2019 3:23 PM CDT Rustam??is overdue for DM follow up and needs to schedule (last DM follow up 07/27/18). ??A1c on??11/28/2018 was??10.6%, was due??for??DM follow up on 10/26/2018. T LEVELER documented in this encounter Plan of Treatment Not on filedocumented as of this encounter Visit Diagnoses Not on filedocumented in this encounter Care Teams Senior Reservations Agent Relationship Specialty Start Date End Date Gagandeep Hinojosa MD PCP - General 05/17/12 1415 [facility] [place] [address] Vane Zarate Psychiatrsamantha Psychiatry 03/22/12 [facility] Health Psychotherapist 08/04/17 [facility] Inshore Undersea Warfare Officer 09/13/17 documented as of this encounter
--- OUTSIDE RECORDS SUMMARY | 2022-02-14 14:56 | XMS_ITS | Encounter Summary ---
:1970 Author Organization [employer] Address [address] [place] [address] Care Team Providers Name Role Phone Gagandeep Hinojosa MD Primary Care Provider Reason for Visit Reason Comments DM/VASC/HTN Registry Call 1 Encounter Details Date Type Department Care Team Description 04/19/2019 Telephone [facility] Gagandeep Hinojosa, DM/VA SC/HTN Registry Medicine MD Call 1 1415 [facility] . [address] [place] [address] [place], [place] [address] (Wo rk) Social History Tobacco Use Types [...] and left detailed msg below, giving patient [phone] to call and schedule labs. Joelle Carrasquillo MA 3:43 PM 04/19/2019 AR WORKER Abel Novak MA - 04/19/2019 2:37 PM CST Pt is overdue for diabetes labs, please call and make pt a lab only appt.Pt does not need to be fasting unless they are do for Chol and would like too. AR WORKER documented in this encounter Plan of Treatment Not on filedocumented as of this encounter Visit Diagnoses Not on filedocumented in this encounter Care Teams Industrial Organization Manager Relationship Specialty Start Date End Date Gagandeep Hinojosa MD PCP - General 05/17/[address] [place] [address] [place] Gerber [id number] Vane Zarate Psychiatrist Psychiatry 03/22/12 [facility] Mental Health Psychotherapist 08/04/17 [facility] Applied Mathematician 09/13/17 documented as of this encounter
--- OUTSIDE RECORDS SUMMARY | 2022-02-14 14:56 | XMS_ITS | Encounter Summary ---
:1970 Author Organization [employer] Address [address] [place] [address] Care Team Providers Name Role Phone Gagandeep Hinojosa MD Primary Care Provider Reason for Visit Reason Comments Forms DMV Cough Productive cough X 4 days Encounter Details Date Type Department Care Team Description 05/02/2019 Office Visit Gagandeep Storm Type 2 d iabetes mellitus with neurological manifestations, uncontrolled (HR) (Primary Dx); Romario Rubio MD Uncontrolled type 2 diabetes mellitus wi th hyperglycemia (HRC); [address] [facility] current use of ins ulin (HRC); [place] [address] [address] Type 2 diabetes mellitus with diabetic p olyneuropathy, with long-term current use of insulin (HR) [phone] [place] VIGIL [phone] Social History Tobacco Use Types Packs/Day Years [...] Comments Blood Pressure 99/59 05/02/2019 11:31 AM INDUSTRIAL STAFF NURSE Pulse 70 05/02/2019 11:31 AM INDUSTRIAL STAFF NURSE Temperature 38.2 ??C (100.8 ??F) 05/02/2019 11:31 AM INDUSTRIAL STAFF NURSE Respiratory Rate - - Oxygen Saturation - - Inhaled Oxygen Concentration - - Weight 92.4 kg (203 lb 12.8 oz) 05/02/2019 11:31 AM INDUSTRIAL STAFF NURSE Height - - Body Mass Index 29.24 07/27/2018 1:49 PM CDT documented in this encounter Progress Notes Gagandeep Hinojosa MD - 05/02/2019 11:00 AM CST SUBJECTIVE: 49 y.o. 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 He is due for testing but [...] CAPSULE BY MOUTH EVERY DAY 0 ??? [place] Carbonate 600 MG capsule Take 600 mg [...] 1 Tablet by mouth. 01/16/2018: [facility] Received Sig: Take 1 tablet by mouth [...] times a day. ??? Vitamin D, Ergocalciferol, 05595 units CAPS Take 50,000 Units by mouth. [...] 2 diabetes mellitus with neurological manifestations, uncontrolled ([facility]) E11.49 E11.65 2. Uncontrolled type 2 diabetes mellitus with hyperglycemia ([facility]) E11.65 Microalb/Creat Ratio POCT Glycosylated Hemoglobin (HB A1C) Lipid Panel and Direct LDL(If Needed) Creatinine / GFR 3. terminal gauger supervisor current use of insulin ([facility]) Z79.4 4. Type 2 diabetes mellitus with diabetic polyneuropathy, with long-term current use of insulin ([facility]) E11.42 Z79.4 PLAN: 1. He will return for a more formal exam when he is feeling better. His DMV form was completed. The patient was discharged ambulatory and in stable condition. Diabetes measures: A1c Due: 1 months Foot Exam: 1 month Eye exam: Patient will schedule Cholesterol: 1 month Electrolytes: 1 month UMAR: 1 month Aspirin: yes Tobacco: no STRIAL STAFF NURSE documented in this encounter Plan of Treatment Not on filedocumented as of this encounter Results (ABNORMAL) Microalb/Creat Ratio (08/28/2019 2:10 PM CDT) athologist Signature Albumin, 265.4 mg/L 08/28/2019 [facility] Urine, Random 5:06 PM CDT LABORATORY Creatinine, 49 >20 mg/dL 08/28/2019 [facility] Urine, Random 5:06 PM CDT LABORATORY Albumin/Creati 542 (H) <30 mg/g 08/28/2019 [facility] nine Ratio, 5:06 PM CDT LABORATORY Urine, Random Specimen Anatomical Collection Method Collection Time Receive d Time (Source) Location / / Volume Laterality Urine,random Non-blood 08/28/2019 2:10 PM 0 2:10 Collection / CDT PM CDT Unknown Gagandeep Hinojosa MD LAB_1 Performing Organization Address City/State/[facility] Code Phon e Number [facility] [address] [place] [address] (ABNORMAL) Creatinine / GFR (08/28/2019 2:06 PM CDT) [facility] Method Time Signature Creatinine 0.70 (L) 0.73 - 08/28/2019 [facility] 1.18 mg/dL 5:02 PM CDT LABORATORY GFR, Estimated >60 >60 08/28/2019 [facility] mL/min/1.7 5:02 PM CDT LABORATORY 3m2 GFR, Est If >60 >60 08/28/2019 [facility] mL/min/1.7 5:02 PM CDT LABORATORY Lithuanian 3m2 Specimen Anatomical Collection Method / Collection Time Recei abimael Time (Source) Location / Volume Laterality Blood Venipuncture / 08/28/2019 2:06 08/28/2019 2:06 Unknown PM CDT PM CDT Gagandeep Hinojosa MD LAB_1 Performing Organization Address City/[facility] Code Phon e Number [facility] [address] [place] [address] (ABNORMAL) POCT Glycosylated Hemoglobin (HB A1C) (08/28/2019 2:06 PM CDT) Patholo JRD Communication Method Time Signature Hemoglobin A1C 11.4 (H) <=5.6 % 08/28/2019 [place] (Rapid) 2:15 PM CDT LABORATORY Specimen Anatomical Collection Method / Collection Time Recei abimael Time (Source) Location / Volume Laterality Blood Venipuncture / 08/28/2019 2:06 08/28/2019 2:06 Unknown PM CDT PM CDT Narrative [facility] - 08/28/2019 2:15 PM CDT This Rapid A1c test is designed for charlotte toring patients with an established diagnosis of diabetes mellitus. This rapid method is not suitable to establish the initial diagnosis of diabetes mellitus. Performe d using Point of Care Instrumentation. Gagandeep Hinojosa MD LAB_1 Performing Organization Address City/State/ZIP Code Phon e Number [facility] [place] [facility] [address] [place] [address] documented in this encounter Visit Diagnoses Diagnosis 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, uncontrolled - Primary Uncontrolled type 2 diabetes mellitus wi th hyperglycemia (HRC) senior living current use of insulin (HRC) Encounter for long-term (current) use of insulin Type 2 diabetes mellitus with diabetic p olyneuropathy, with long-term current use of insulin (HRC) documented in this encounter Care Teams Rn Bariatric Relationship Specialty Start Date End Date Gagandeep Hinojosa MD PCP - General 05/17/12 [address] [place] [address] Vane Zarate Psychiatrsamantha Psychiatry 03/22/12 [facility] Psychotherapist 08/04/17 [facility] Regulatory Lead 09/13/17 documented as of this encounter
--- OUTSIDE RECORDS SUMMARY | 2022-02-14 14:56 | XMS_ITS | Encounter Summary ---
:1970 Author Organization [employer] Address [address] [place] [address] Care Team Providers Name Role Phone Gagandeep Hinojosa MD Primary Care Provider Reason for Visit Reason Comments RESULTS, TEST Encounter Details Date Type Department Care Team Description 07/12/2019 Telephone [facility] Gagandeep Hinojosa MD RESULTS, TEST 1415 [facility] . [address] [place] [address] [place] [address] [phone] (Wo rk) Social History Tobacco Use Types [...] on filedocumented in this encounter Care Teams Milking Machine Mechanic Relationship Specialty Start Date End Date Gagandeep Hinojosa MD PCP - General 05/17/12 1415 [facility] [place] [address] Vane Zarate Psychiatrist Psychiatry 03/22/12 [facility] Mental Health Psychotherapist 08/04/17 [facility] Development Analyst 09/13/17 documented as of this encounter
--- OUTSIDE RECORDS SUMMARY | 2022-02-14 14:56 | XMS_ITS | Encounter Summary ---
:1970 Author Organization [employer] Address [address] [place] [address] Care Team Providers Name Role Phone Gagandeep Hinojosa MD Primary Care Provider Reason for Visit Reason Comments MANTOUX/PPD READ Encounter Details Date Type Department Care Team Description 06/14/2019 [facility] Encounter for PPD skin Medicine test reading (Primary 1415 [facility] . Dx) [place] [address] Social History Tobacco Use Types Packs/Day Years [...] imary documented in this encounter Care Teams Florist Relationship Specialty Start Date End Date Gagandeep Hinojosa MD PCP - General 05/17/12 1415 [facility] [place] [address] Vane Zarate Psychiatrist Psychiatry 03/22/12 [facility] Mental Health Psychotherapist 08/04/17 [facility] Laboratory Specialist 09/13/17 documented as of this encounter
--- OUTSIDE RECORDS SUMMARY | 2022-02-14 14:56 | XMS_ITS | Encounter Summary ---
:1970 Author Organization [email or web address] Address [address] [place] [address] Care Team Providers Name Role Phone Gagandeep Michaud MD Primary Care Provider Reason for Visit Reason Comments Refill metFORMIN (GLUCOPHAGE) 500 M G tablet [Pharmacy Med Name: metFORMIN HCl 500 MG Oral Tablet] Encounter Details Date Type Department Care Team Description 05/21/2019 Refill [facility] Gagandeep Michaud, Refil l (metFORMIN Medicine MD (GLUCOPHAGE) [address] tablet [place] [address] [place] [address] Name: metFORMIN HCl 500 [phone] (Wo rk) MG Oral Tablet]) Social History [...] TABLETS BY MOUTH TWICE DAILY WITH MEALS P LEADER SEMICONDUCTOR PROCESSING Interface, Out Rebit Prov Query - 05/21/2019 5:31 AM CST [...] (Sent to [facility]) Powered by [employer], Reference: [id number], 05/21/2019 5:31:48 AM ELKIN, Jaxon: MANUEL REFILL ([id number]) P LEADER SEMICONDUCTOR PROCESSING documented in this encounter Plan of Treatment Not on filedocumented as of this encounter Visit Diagnoses Diagnosis Uncontrolled type 2 diabetes mellitus wi thout complication, without long-term current use of insulin documented in this encounter Care Teams Product Development Scientist Relationship Specialty Start Date End Date Gagandeep Michaud MD PCP - General 05/17/12 [facility] [place] [address] Vane Zarate Psychiatrsamantha Psychiatry 03/22/12 [facility] Mental [facility] Psychotherapist 08/04/17 [facility] Milk Truck Driver 09/13/17 documented as of this encounter
--- OUTSIDE RECORDS SUMMARY | 2022-02-14 14:56 | XMS_ITS | Encounter Summary ---
:1970 Author Organization [employer] Address [address] [place] [address] Care Team Providers Name Role Phone Gagandeep [...] Type Department Care Team Description 08/10/2019 Refill [facility] Gagandeep Michaud, Refil l (atorvastatin Medicine MD (LIPITOR) 80 MG tablet [address] 14[address] [facility] [Pharmacy Med Name: [place] [address] [place] [address] Atorvastatin Calcium 80 [phone] (Wo rk) MG Oral Tablet]; metoprolo l [...] MICHAUD) Next scheduled visit: None Powered by [facility], Reference: [id number], 08/10/2019 5:31:42 AM CDT, Pool: MANUEL REFILL ([id number]) metoprolol succinate (TOPROL XL) 50 MG 24 [...] 85 mm Hg on 06/21/2019 Powered by [employer], Reference: [id number], 08/10/2019 5:31:42 AM CDT, Pool: MANUEL MOORE ([id number]) documented in this encounter Plan of Treatment Not on filedocumented as of this encounter Visit Diagnoses Diagnosis ASHD (arteriosclerotic heart disease) (H [facility]) Coronary atherosclerosis of unspecified type of vessel, [place] or graft Hyperlipidemia LDL goal < 70 Other and unspecified hyperlipidemia Essential hypertension (HRC) Unspecified essential hypertension documented in this encounter Care Teams Corporate Compliance Director Relationship Specialty Start Date End Date Gagandeep Michaud MD PCP - General 05/17/12 [facility] [place] [address] Vane Zarate Psychiatrist Psychiatry 03/22/12 [facility] Psychotherapist 08/04/17 [facility] CM Pad Extraction Tender 09/13/17 documented as of this encounter
--- OUTSIDE RECORDS SUMMARY | 2022-02-14 14:56 | XMS_ITS | Encounter Summary ---
:1970 Author Organization [employer] Address [address] [address] Care Team Providers Name Role Phone Gagandeep Hinojosa MD Primary Care Provider Reason for Visit Reason Comments Appt. Needed medicare wellness Encounter Details Date Type Department Care Team Description 08/06/2019 [facility] Gag[facility] Hinojosa, Appt. Needed (medicare Medicine MD wellness) 1415 [facility] . [address] [place] [address] [place] [address] [phone] (Wo rk) Social History Tobacco Use Types [...] on filedocumented in this encounter Care Teams Pony Roll Finisher Relationship Specialty Start Date End Date Gagandeep Hinojosa MD PCP - General 05/17/12 [facility]5 [facility] [place] [address] Vane Zarate Psychiatrist Psychiatry 03/22/12 [facility] Psychotherapist 08/04/17 [facility] Social Sciences Instructor 09/13/17 documented as of this encounter
--- OUTSIDE RECORDS SUMMARY | 2022-02-14 14:56 | XMS_ITS | Encounter Summary ---
:1970 Author Organization [employer] Address [address], [place] [address] Care Team Providers Name Role Phone Gagandeep Michaud MD Primary Care Provider Reason for Visit Reason Onset Date Comments Refill 08/14/2019 busPIRone (BUSPAR) 1 0 MG tablet Encounter Details Date Type Department Care Team Description 08/14/2019 Refill [facility] Gagandeep Michaud, Rochelle l (busPIRone Medicine (BUSPAR) 10 MG tablet) 1415 [facility] . [address] [place] [address] [place], [place] [address] (Wo rk) Social History Tobacco Use Types [...] 85 mm Hg on 06/21/2019 Powered by [facility], Reference: [id number], 08/14/2019 4:19:51 PM CDT, Pool: MANUEL MOORE ([id number]) documented in this encounter Plan of Treatment Not on filedocumented as of this encounter Visit Diagnoses Not on filedocumented in this encounter Care Teams Operating Theatre Technician Relationship Specialty Start Date End Date Gagandeep Michaud MD PCP - General 05/17/12 [facility] [address] Vane Zarate Psychiatrist Psychiatry 03/22/12 [facility] Psychotherapist 08/04/17 [facility] Friction Welding Machine Operator 09/13/17 documented as of this encounter
--- OUTSIDE RECORDS SUMMARY | 2022-02-14 14:56 | XMS_ITS | Encounter Summary ---
:1970 Author Organization [facility] [facility] Address [address] [place] [address] Care Team Providers Name Role Phone Gagandeep Hinojosa MD Primary Care Provider Reason for Visit Reason Comments Medication Request Encounter Details Date Type Department Care Team Description 08/31/2019 [facility] Gag[facility] Hinojosa, Medication Request [address] [place] [address] 1415 [facility] [phone] [place], [place] [address] (Wo rk) Social History Tobacco [...] regarding Medication Clinician Next Step: Route to [facility] to follow up and Patient IS expecting a call back fromcare team Specific Request(s): 1. Patient requesting alternative to levocarnitine States he was unable to find other pharmacies with supply. Teri Lockett RN - 09/04/2019 3:46 PM CDT Left message for patient to return call if he has found another pharmacy or if he would like an alternative prescribed. [id number] Mendy Nieves RN - 08/31/2019 2:28 PM CDT Return call from patient, patient will contact other pharmacies for Rx Levocarnitine supply and affordable medication. If unavailable, patient will request for alternative medication from PCP. Await return call. Sasha Garcia RN - 08/31/2019 9:43 AM CDT Left message for patient to return call to [phone]. Medication is historical. Does patient want to call other pharmacies for refill due to back order ofmedication at [facility] pharmacy or request alternative medication from [...] an appropriate substitute. Thank you. Calvin Vigil [phone] documented in this encounter Plan of Treatment Not on filedocumented as of this encounter Visit Diagnoses Not on filedocumented in this encounter Care Teams Steam Table Associate Relationship Specialty Start Date End Date Gagandeep Hinojosa MD PCP - General 05/17/12 1415 [facility] [place] [address] Vane Zarate Psychiatrist Psychiatry 03/22/12 [facility] Psychotherapist 08/04/17 [facility] Consumer Marketing Specialist 09/13/17 documented as of this encounter
--- OUTSIDE RECORDS SUMMARY | 2022-02-14 14:56 | XMS_ITS | Encounter Summary ---
:1970 Author Organization [employer] Address [address] [place] [address] Care Team Providers Name Role Phone Gagandeep Hinojosa MD Primary Care Provider Reason for Visit Reason Comments Hospital Discharge Follow-up 06-17-19 [facility] admi t for Chest pain Encounter Details Date Type Department Care Team Description 06/21/2019 Office Visit Gagandeep Storm Atypical chest pain (Primary Dx); Romario Rubio MD H/O atrial flutter; [address] 1415 [facility] Uncontrolled type 2 diabetes mellitus without complication, without long-term current use of insulin (HRC); [place] [address] [address] Tobacco use disorder; [phone] [place] [phone] Drug-induced tremor Social History Tobacco Use [...] Comments Blood Pressure 132/85 06/21/2019 10:26 AM FUR DRESSER Pulse 92 06/21/2019 10:26 AM FUR DRESSER Temperature - - Respiratory Rate - - Oxygen Saturation - - Inhaled Oxygen Concentration - - Weight 90.7 kg (200 lb) 06/21/2019 10:26 AM FUR DRESSER Height 177.2 cm (5' 9.75) 06/21/2019 10:26 AM FUR DRESSER Body Mass Index 28.9 06/21/2019 10:26 AM FUR DRESSER documented in this encounter Progress Notes Gagandeep Hinojosa MD - 06/21/2019 10:20 AM CST ICD-10-CM 1. Atypical chest pain R07.89 2. H/O atrial flutter Z86.79 3. Uncontrolled type 2 diabetes mellitus without complication, without long-term current use of insulin ([facility]) E11.65 4. Tobacco use disorder ([facility]) F17.200 5. Drug-induced tremor G25.1 CHIEF COMPLAINT: Chief Complaint Patient presents with ??? Hospital Discharge Follow-up 06-17-19 [facility] hospital admit for Chest pain SUBJECTIVE : [...] Diagnosis Date Noted ??? Non-proliferative diabetic retinopathy ([facility]) 05/02/2019 ??? Hyponatremia 01/16/2018 ??? Tinea versicolor 07/18/2015 ??? Tobacco use disorder ([facility]) 10/26/2012 ??? Anemia 05/02/2012 Overview Note: Anemia, unspecified ??? Microalbuminuria 02/04/2012 ??? CO, old ([facility]) 09/16/2011 ??? History of PTCA 09/16/2011 Overview Note: History of PTCA 04/2011 BMS RCA ??? Obesity, Class I, BMI 30-34.9 ([facility]) 09/16/2011 Overview Note: Body mass index is 31.16 kg/(m^2). ??? Hyperlipidemia with target LDL less than 70 ([facility]) 06/08/2011 Overview Note: Hyperlipidemia LDL goal < 70 ??? ASHD (arteriosclerotic heart disease) ([facility]) 05/04/2011 ??? Erectile dysfunction 01/22/2011 Overview Note: side effect Risperdal ??? Type 2 diabetes mellitus, uncontrolled ([facility]) 12/11/2010 Overview Note: Type II or unspecified type diabetes mellitus without mention of complication, uncontrolled ([facility]) ??? Dermatophytosis of body 09/04/2010 Class: Historical Overview Note: Tinea Corporis ??? Coronary atherosclerosis ([facility]) 12/22/2009 Overview Note: LW Modifier: mod RCA, negative nuclear stress test ; CAD ??? Nonspecific abnormal results of liver function study 12/22/2009 Overview Note: Liver Function Tests Abnormal ??? Bipolar I disorder ([facility]) 09/15/2005 Overview Note: LW Onset: [id number] ; Bipolar I Dis FAMILY HISTORY OR [...] 1 Tablet by mouth. 01/16/2018: Received from: [facility] [facility] Received Sig: Take 1 tablet [...] 32 Units subcutaneously daily. 6 mL5 ??? [place] Carbonate 600 MG capsule Take 600 mg by mouth daily at bedtime. 01/16/2018: Received from: External Pharmacy Received Sig: TAKE ONE CAPSULE BY MOUTH AT BEDTIME 0 ??? Vitamin D, Ergocalciferol, 64657 units CAPS Take 50,000 Units by mouth. [...] enhancing his diabetes control Follow-up: 2 weeks DRESSER documented in this encounter Plan of Treatment [...] remor documented in this encounter Care Teams Healthcare Receptionist Relationship Specialty Start Date End Date Gagandeep Hinojosa MD PCP - General 05/17/12 1415 [facility] [place] [address] Vane Zarate Psychiatrist Psychiatry 03/22/12 [facility] Health Psychotherapist 08/04/17 [facility] Chemical Etching Processor 09/13/17 documented as of this encounter
--- OUTSIDE RECORDS SUMMARY | 2022-02-14 14:56 | XMS_ITS | Encounter Summary ---
:1970 Author Organization [employer] Address [address] [address] Care Team Providers Name Role Phone Gagandeep Michaud MD Primary Care Provider Reason for Visit Reason Onset Date Comments Refill 08/24/2019 risperiDONE (RISPERD AL) 3 MG tablet Encounter Details Date Type Department Care Team Description 08/24/2019 Refill [facility] Gagandeep Michaud, Refil l (risperiDONE Medicine MD (RISPERDAL) 3 MG tablet) 1415 [facility] . [address] [place] [address] [place], [place] [address] (Wo rk) Social History Tobacco Use Types [...] Should be filled by Psychiatry Interface, Out activ8 Intelligence Prov Query - 08/24/2019 8:35 AM CDT [...] visit: 08/28/2019 (in Family Practice) Powered by [employer], Reference: [id number], 08/24/2019 8:35:39 AM CDT, Pool: MANUEL MOORE ([id number]) documented in this encounter Plan of Treatment Not on filedocumented as of this encounter Visit Diagnoses Not on filedocumented in this encounter Care Teams Supervisor Painting Department Relationship Specialty Start Date End Date Gagandeep Michaud MD PCP - General 05/17/12 [facility]5 [facility] [place] [address] Vane Zarate Psychiatrsamantha Psychiatry 03/22/12 [facility] Psychotherapist 08/04/17 [facility] Internal Recruiter 09/13/17 documented as of this encounter
--- OUTSIDE RECORDS SUMMARY | 2022-02-14 14:56 | XMS_ITS | Encounter Summary ---
:1970 Author Organization [employer] Address [address] [address] Care Team Providers Name Role Phone Gagandeep Hinojosa MD Primary Care Provider Encounter Details Date Type Department Care Team Description 07/23/2019 Orders Only Initial Department Provider, Magda, [facility] YADY JEFFRIES MD [place], [place] [address] Interface provider [phone] [place] [address] Social History Tobacco Use Types Packs/Day Years [...] on filedocumented in this encounter Care Teams Job Compositor Relationship Specialty Start Date End Date Gagandeep Hinojosa MD PCP - General 05/17/12 [address] [place] [address] Vane Zarate Psychiatrist Psychiatry 03/22/12 [facility] Mental Health Psychotherapist 08/04/17 [facility] Manager Policy 09/13/17 documented as of this encounter
--- OUTSIDE RECORDS SUMMARY | 2022-02-14 14:56 | XMS_ITS | Encounter Summary ---
:1970 Author Organization [employer] Address [address], [place] [address] Care Team Providers Name Role Phone Gagandeep Michaud MD Primary Care Provider Reason for Visit Reason Onset Date Comments Refill Refill 09/10/2019 Encounter Details Date Type Department Care Team Description 09/10/2019 Refill [facility] Gagandeep Michaud MD Refill; Refill 1415 [facility] . [address] [place] [address] [place], [place] [id number] (Wo rk) Social History Tobacco Use Types [...] MICHAUD) Next scheduled visit: None Powered by [employer], Reference: [id number], 09/10/2019 12:30:20 PM CDT, Pool: MANUEL MOORE ([id number]) documented in this encounter Plan of Treatment Not on filedocumented as of this encounter Visit Diagnoses Diagnosis Uncontrolled type 2 diabetes mellitus wi th complication, with long-term current use of insulin documented in this encounter Care Teams Senior Product Analyst Relationship Specialty Start Date End Date Gagandeep Michaud MD PCP - General 05/17/12 [address] [place] [address] Vane Zarate Psychiatrist Psychiatry 03/22/12 [facility] Mental Health Psychotherapist 08/04/17 [facility] Movie Theater Manager 09/13/17 documented as of this encounter
--- OUTSIDE RECORDS SUMMARY | 2022-02-14 14:56 | XMS_ITS | Encounter Summary ---
:1970 Author Organization [employer] Address [address] [place] [address] Care Team Providers Name Role Phone Gagandeep Hinojosa MD Primary Care Provider Reason for Visit Reason Comments Follow-up Encounter Details Date Type Department Care Team Description 06/11/2019 Office Visit Gagandeep Storm r for work capability assessment (Primary Dx); Romario Rubio MD Screening for tuberculosis; [address] 1415 [facility] [place] [address] Ave [phone] [place], [place] [address] Social History Tobacco Use [...] Comments Blood Pressure 137/80 06/11/2019 1:00 PM GEOMETRY TUTOR Pulse 95 06/11/2019 1:00 PM GEOMETRY TUTOR Temperature - - Respiratory Rate - - Oxygen Saturation - - Inhaled Oxygen Concentration - - Weight 93.9 kg (207 lb) 06/11/2019 1:00 PM GEOMETRY TUTOR Height - - Body Mass Index 29.7 [...] although he reports his psychiatrist is nearing fdc. He has had significant psychiatric breaks including bipolar dissociations, etc. and I would be reluctant to modify his medications. PROBLEM LIST: Patient Active Problem List Diagnosis Date Noted ??? Non-proliferative diabetic retinopathy ([facility]) 05/02/2019 ??? Hyponatremia 01/16/2018 ??? Tinea versicolor 07/18/2015 ??? Tobacco use disorder ([facility]) 10/26/2012 ??? Anemia 05/02/2012 Overview Note: Anemia, unspecified ??? Microalbuminuria 02/04/2012 ??? [place], old ([facility]) 09/16/2011 ??? History of PTCA 09/16/2011 Overview Note: History of PTCA 04/2011 BMS RCA ??? Obesity, Class I, BMI 30-34.9 ([facility]) 09/16/2011 Overview Note: Body mass index is 31.16 kg/(m^2). ??? Hyperlipidemia with target LDL less than 70 ([facility]) 06/08/2011 Overview Note: Hyperlipidemia LDL goal < 70 ??? ASHD (arteriosclerotic heart disease) ([facility]) 05/04/2011 ??? Erectile dysfunction 01/22/2011 Overview Note: side effect Risperdal ??? Type 2 diabetes mellitus, uncontrolled ([facility]) 12/11/2010 Overview Note: Type II or unspecified type diabetes mellitus without mention of complication, uncontrolled ([facility]) ??? Dermatophytosis of body 09/04/2010 Class: Historical Overview Note: Tinea Corporis ??? Coronary atherosclerosis ([facility]) 12/22/2009 Overview Note: LW Modifier: mod RCA, negative nuclear stress test ; CAD ??? Nonspecific abnormal results of liver function study 12/22/2009 Overview Note: Liver Function Tests Abnormal ??? Bipolar I disorder ([facility]) 09/15/2005 Overview Note: LW Onset: [id number] ; Bipolar I Dis FAMILY HISTORY OR [...] CAPSULE BY MOUTH EVERY DAY 0 ??? [place] Carbonate 600 MG capsule Take 600 mg [...] 1 Tablet by mouth. 01/16/2018: Received from: [facility] Received Sig: Take 1 tablet by [...] times a day. ??? Vitamin D, Ergocalciferol, 49123 units CAPS Take 50,000 Units by mouth. [...] regard to medication management of his tremor. ETRY TUTOR documented in this encounter Nursing Notes Diana Zambrano LPN - 06/11/2019 1:00 PM CST Pt refused immunizations ETRY TUTOR documented in this encounter Plan of Treatment Not on filedocumented as of this encounter Procedures Procedure Name Priority Date/Time Associated Diagnosis Comme nts TB SKIN TEST (PPD) Routine 06/14/2019 10:53 Screening for Resu lts for this AM GEOMETRY TUTOR tuberculosis procedure are i n the results section. documented in this encounter Results TB SKIN TEST (PPD) (06/14/2019 10:53 AM GEOMETRY TUTOR) P athologist Signature TB Skin Test 0.0 [...] remor documented in this encounter Care Teams Nurse Sexual Assault Relationship Specialty Start Date End Date Gagandeep Hinojosa MD PCP - General 05/17/12 [address] [facility] [place] [place] [address] Vane Zarate Psychiatrist Psychiatry 03/22/12 [facility] Psychotherapist 08/04/17 [facility] Documentation Consultant 09/13/17 documented as of this encounter
--- OUTSIDE RECORDS SUMMARY | 2022-02-14 14:56 | XMS_ITS | Encounter Summary ---
:1970 Author Organization [employer] Address [address], [place] [address] Care Team Providers Name Role Phone Gagandeep Hinojosa MD Primary Care Provider Reason for Visit Reason Comments Post Hospital Discharge Follow Up Encounter Details Date Type Department Care Team Description 12/22/2018 Telephone [facility] Gagandeep Hinojosa, Post Hospital Discharge Medicine MD Follow Up 14[address] [facility] . [address] [place] [address] [place] [address] [phone] (Wo rk) Social History Tobacco Use Types [...] message to call back to nurse line #[phone] Aniyah Guillen - 12/22/2018 11:48 AM CDT Pt returning call. Told him about message below and informed him he will be getting a call back Danelle Garcia RN - 12/22/2018 11:36 AM CDT Called patient for post discharge follow up, no answer. Unable to leave voicemail for patient, will attempt to call patient again. Admitted to [facility] 12/20 for intentional acute drug overdose. No new meds. Stopped buspirone, quetiapine, and risperidone. Has f/u appt 12/26. documented in this encounter Plan of Treatment Not on filedocumented as of this encounter Visit Diagnoses Not on filedocumented in this encounter Care Teams Certified Phlebotomist Relationship Specialty Start Date End Date Gagandeep Hinojosa MD PCP - General 05/17/12 1415 [facility] [place] [address] Vane Zarate Psychiatrist Psychiatry 03/22/12 [facility] Mental Health Psychotherapist 08/04/17 [facility] Dietary Worker 09/13/17 documented as of this encounter
--- OUTSIDE RECORDS SUMMARY | 2022-02-14 14:56 | XMS_ITS | Encounter Summary ---
:1970 Author Organization [employer] Address [address] [address] Care Team Providers Name Role Phone Gagandeep Hinojosa MD Primary Care Provider Reason for Visit Reason Comments Other Encounter Details Date Type Department Care Team Description 02/07/2019 Initial Consult [facility] Vashti Rocha, En counter for other Therapy PT specified special [address] E examinations ([place] [address] [place], [place] Dx) [phone] [address] Social History Tobacco Use Types Packs/Day Years [...] Primary documented in this encounter Care Teams Tennis Desk Team Member Relationship Specialty Start Date End Date Gagandeep Hinojosa MD PCP - General 05/17/12 1415 [facility] [place] [address] Vane Zarate Psychiatrist Psychiatry 03/22/12 [facility] Mental Health Psychotherapist 08/04/17 [facility] Environmental Test Technician 09/13/17 documented as of this encounter
--- OUTSIDE RECORDS SUMMARY | 2022-02-14 14:56 | XMS_ITS | Encounter Summary ---
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 [address] Social History Tobacco Use Types [...] by mouth 0 12/2408/28/2019 MG capsule daily. [place] Carbonate 600 Take 600 mg by mouth [...] 50,000 Units by 0 11/01/2018 0210/2019 Ergocalciferol, [address]4766 mouth. units CAPS documented as of this encounter Procedure Notes Zayra Jamison - 06/18/2019 12:00 PM CSTAssociated Order(s): OUTREACH NUCLEAR STUDY Results NM CARDIAC MPI STRESS TEST ( (Order [id number]) STRESS TEST PHARMACOLOGICAL ( (Order [id number]) Original Order Diagnosis: Chest pain [R07.9 (ICD-10-CM)] Chest pain, acute, nonspecific Chest pain, acute, nonspecific Reading Provider(s) Cliff Weinstein DO PACs images are not viewable in [employer]. See text report below. STRESS TEST PHARMACOLOGICALOrder: [id number] Status: Final result Visible to patient: No (Not Released) Next appt: None Dx: Chest pain Linked study orders: NM CARDIAC MPI STRESS TEST (Order: [id number]) Details Reading Physician Reading Date Result Priority [...] patient. 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 documented in this encounter Results Outreach Nuclear Study (06/18/2019 12:00 PM GR[employer]ING [employer] POLISHING LABORER) Narrative POCT - 06/18/2019 12:00 PM GRINDING [employer] POLISHING LABORER Zayra Jamison ? 06/20/2019 11:21 AM Results NM CARDIAC MPI STRESS TEST ( [id number]) (Order [id number]) STRESS TEST PHARMACOLOGICAL (Accession [id number]) (Order [id number]) Original Order Diagnosis: Chest pain [R07.9 (ICD-10-CM)] ??Chest p ain, acute, nonspecific Chest pain, acute, nonspecific Reading Provider(s) Cliff Weinstein DO PACs images are not viewable in [employer]. See text report below. STRESS TEST PHARMACOLOGICALOrder: [id number] Status: Final result ?? Visible to patie nt: No (Not Released) Next appt: None Dx: Chest pain Linked study orders: NM CARDIAC MPI STRE SS TEST (Order: [id number]) Details Reading Physician Reading Date Result Pr [...] humphrey. Patient Information Patient Name Timur Krishnamurthy ([id number]) Sex Male Procedure Note Zayra Jamison M - 06/18/2019 12:[address] Results NM CARDIAC MPI STRESS TEST ( [id number]) (Order [id number]) STRESS TEST PHARMACOLOGICAL (Accession [id number]) (Order [id number]) Original Order Diagnosis: Chest pain [R07.9 (ICD-10-CM)] Chest sesar n, acute, nonspecific Chest pain, acute, nonspecific Reading Provider(s) Cliff Weinstein DO PACs images are not viewable in [employer]. See text report below. STRESS TEST PHARMACOLOGICALOrder: [id number] Status: Final result Visible to patient: No (Not Released) Next appt: None Dx: Chest pain Linked study orders: NM CARDIAC MPI STRE SS TEST (Order: [id number]) Details Reading Physician Reading Date Result Pr [...] humphrey. Patient Information Patient Name Timur Krishnamurthy ([id number]) Sex Male Zara Fox MD PN CARDIAC SERVICES ORDERABL ES Performing Organization Address City/State/ZIP Code Phon e Number POCT documented in this encounter Visit Diagnoses Diagnosis Chest pain, unspecified type - Primary documented in this encounter Care Teams Chain Tender Relationship Specialty Start Date End Date Gagandeep Hinojosa MD PCP - General 05/17/[address] [place] [address] Vane Zarate Psychiatrsamantha Psychiatry 03/22/12 [facility] Psych[facility]ist 08/04/17 [facility] Auto Body Repair Teacher 09/13/17 documented as of this encounter
--- OUTSIDE RECORDS SUMMARY | 2022-02-14 14:56 | XMS_ITS | Encounter Summary ---
:1970 Author Organization [employer] Address [address] [place] [address] Care Team Providers Name Role Phone Gagandeep Michaud MD Primary Care Provider Reason for Visit Reason Onset Date Comments Refill 09/13/2019 insulin degludec (TR ESIBA FLEXTOUCH) 200 UNIT/ML SOPN Encounter Details Date Type Department Care Team Description 09/13/2019 Refill Gagandeep Storm Refil l (insulin degludec Medicine (TRESIBA FLEXTOUCH) [address] UNIT/ML SOPN) [place] [address] [place] [address] [phone] (Wo rk) Social History Tobacco Use Types [...] MICHAUD) Next scheduled visit: None Powered by [employer], Reference: [id number], 09/13/2019 2:38:57 PM CDT, Pool: MANUEL REFILL ([id number]) Amelia Conway MA - 09/13/2019 2:37 PM [...] insulin documented in this encounter Care Teams Ordinary Seaman Relationship Specialty Start Date End Date Gagandeep Michaud MD PCP - General 05/17/12 1415 [facility] [place] [address] Vane Zarate Psychiatrsamantha Psychiatry 03/22/12 [facility] Psychotherapist 08/04/17 [facility] Lapel Padder Blindstitch 09/13/17 documented as of this encounter
--- OUTSIDE RECORDS SUMMARY | 2022-02-14 14:56 | XMS_ITS | Encounter Summary ---
:1970 Author Organization [employer] Address [address] [place] [address] Care Team Providers Name Role Phone Gagandeep Hinojosa MD Primary Care Provider Reason for Visit Reason Comments Diabetes Rash chest X 2 months Encounter Details Date Type Department Care Team Description 12/18/2018 Office Visit Gagandeep Stormea ve rsicolor (Primary Dx); Romario Rubio MD Essential hypertension; [address] [facility] Uncontro lled type 2 diabetes mellitus without complication, without long-term current use of insulin (HRC); Ave. 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 [place] Carbonate 600 MG capsule Take 600 mg by mouth daily at bedtime. 01/16/2018: Received from: External Pharmacy Received Sig: TAKE ONE CAPSULE BY MOUTH AT BEDTIME 0 ??? metoprolol succinate (TOPROL XL) 50 MG 24 hour release tablet Take 1 Tablet by mouth daily. 90 Tablet 1 ??? multivitamin (THERAGRAN) tablet Take 1 Tablet by mouth. 01/16/2018: [facility] Received Sig: Take 1 tablet by mouth [...] times a day. ??? Vitamin D, Ergocalciferol, 05275 units CAPS Take 50,000 Units by mouth. [...] 2 diabetes mellitus with neurological manifestations, uncontrolled ([facility]) E11.49 E11.65 5. Tobacco use disorder ([facility]) F17.200 PLAN: 1. Continue to work on [...] 2 diabetes mellitus wi th hyperglycemia ([facility]) vermin exterminator current use of insulin ([facility]) Encounter for long-term (current) use of insulin Type 2 diabetes mellitus without complic ation, with long-term current use of insulin ([facility]) Hyperlipidemia, unspecified hyperlipidem ia type documented in this encounter Care Teams Divorce Mediator Relationship Specialty Start Date End Date Gagandeep Hinojosa MD PCP - General 05/17/12 1415 [facility] [place], [place] [address] Vane Zarate Psychiatrist Psychiatry 03/22/12 [facility] Health Psychotherapist 08/04/17 [facility] In Tube Conversion Technician 09/13/17 documented as of this encounter
--- OUTSIDE RECORDS SUMMARY | 2022-02-14 14:56 | XMS_ITS | Encounter Summary ---
:1970 Author Organization [employer] Address [address] [place] [address] Care Team Providers Name Role Phone Gagandeep Hinojosa MD Primary Care Provider Reason for Visit Reason Comments LAB RESULTS Encounter Details Date Type Department Care Team Description 07/11/2019 Telephone [facility] Gagandeep Hinojosa MD LAB RESULTS 1415 [facility] . [address] [place] [address] [place] [address] [phone] (Wo rk) Social History Tobacco Use Types [...] ZioPatch results Clinician Next Step: Route to [place] Nurse scales mound to follow up Specific Request(s): 1. Results have been routed to providers results inbasket. Please review and advise. Jessica Tirado - 07/11/2019 3:45 PM CDT Test Results (Advise caller/patient can view test results in MyChart, if enrolled) What test are you calling about? Zio patch -pt request a call back today Primary Financial Aid Advisor: Gagandeep Hinojosa MD Who ordered the test? [...] filedocumented in this encounter Care Teams Equipment Maintenance Supervisor Relationship Specialty Start Date End Date Gagandeep Hinojosa MD PCP - General 05/17/12 1415 [place] [address] Vane Zraate Psychiatrist Psychiatry 03/22/12 [facility] Psychotherapist 08/04/17 [facility] Machine Adjuster Leader Case Trim 09/13/17 documented as of this encounter
--- OUTSIDE RECORDS SUMMARY | 2022-02-14 14:56 | XMS_ITS | Encounter Summary ---
:1970 Author Organization [employer] Address [address], [place] [address] Care Team Providers Name Role Phone Gagandeep Michaud MD Primary Care Provider Reason for Visit Reason Onset Date Comments Refill 08/24/2019 benztropine (COGENTI N) 1 MG tablet Encounter Details Date Type Department Care Team Description 08/24/2019 Refill [facility] Gagandeep Michaud, Refil l (benztropine Medicine (COGENTIN) 1 MG tablet) 1415 [facility] . [address] [place] [address] [place], [place] [address] (Wo rk) Social History Tobacco Use Types [...] 9:50 AM CDT Call patient Interface, Out Avisena Prov Query - 08/24/2019 8:34 AM CDT benztropine (COGENTIN) 1 MG tablet -> The medication cannot be found in the patient's medication history. -> Medication cannot be delegated. Last qualifying visit: 06/21/2019 (with GAGANDEEP MICHAUD) Next scheduled visit: 08/28/2019 (in Family Practice) Powered by [employer], Reference: [id number], 08/24/2019 8:34:13 AM CDT, Pool: MANUEL MOORE ([id number]) documented in this encounter Plan of Treatment Not on filedocumented as of this encounter Visit Diagnoses Not on filedocumented in this encounter Care Teams Clinical Documentation Improvement Specialist Relationship Specialty Start Date End Date Gagandeep Michaud MD PCP - General 05/17/12 1415 [facility] [place] [address] Vane Zarate Psychiatrist Psychiatry 03/22/12 [facility] Health Psychotherapist 08/04/17 [facility] Forest Worker 09/13/17 documented as of this encounter
--- OUTSIDE RECORDS SUMMARY | 2022-02-14 14:56 | XMS_ITS | Encounter Summary ---
:1970 Author Organization [employer] Address [address] [address] Care Team Providers Name Role Phone Gagandeep Hinojosa MD Primary Care Provider Reason for Visit Reason Comments FOLLOW-UP,DIABETES Encounter Details Date Type Department Care Team Description 09/10/2019 Care Coord Office Judy Luke RN FOLLOW-UP,DIABETES Visit Medicine [facility] . [place] [address] [place] [phone] [address] Social History Tobacco Use Types Packs/Day Years [...] RN - 09/10/2019 1:00 PM CDT RN Congressional Representative Visit Pt: Timur Krishnamurthy Referred by: Gagandeep [...] has straight Medicare and Part D through [employer], so he is responsible for the 20% Medicare does not cover, which is expensive. Because his combined annual household income is over $75,000, Rustam is over income for [place] and [facility]. [...] trying to eat more cheese sticks and Arabic or light yogurt instead. I reminded Rustam [...] Mental Health Case Management and therapy through [facility], but will need a new psychiatrist. Rustam would like to stay at [facility], if possible. We called [facility] together and were advised that the intake visit must be a video visit, but Rustam does not have the technology for a video visit. The garbage pick up worker agrees to message some providers to see [...] filedocumented in this encounter Care Teams Assistant Dean Relationship Specialty Start Date End Date Gagandeep Hinojosa MD PCP - General 05/17/12 [facility] [place] [address] Vane Zarate Psychiatrist Psychiatry 03/22/12 [facility] Mental Health Psychotherapist 08/04/17 [facility] Printing Assistant 09/13/17 documented as of this encounter
--- OUTSIDE RECORDS SUMMARY | 2022-02-14 14:56 | XMS_ITS | Encounter Summary ---
:1970 Author Organization [employer] Address [address], [place] [address] Care Team Providers Name Role Phone Gagandeep Hinojosa MD Primary Care Provider Reason for Visit Reason Comments FOLLOW-UP,DIABETES Encounter Details Date Type Department Care Team Description 08/29/2019 Care Coord Phone Judy Luke R N FOLLOW-UP,DIABETES Medicine [address] [place] [address] . [place] [address] [place] [address] [phone] Social History Tobacco Use Types Packs/Day Years [...] RN - 09/03/2019 2:01 PM CDT RN Neurology Epilepsy Physician - Diabetes Follow-Up Current diabetes medication regimen: [...] requesting a return call. Please transfer to [phone]. documented in this encounter Plan of Treatment Not on filedocumented as of this encounter Visit Diagnoses Not on filedocumented in this encounter Care Teams Crematory Attendant Relationship Specialty Start Date End Date Gagandeep Hinojosa MD PCP - General 05/17/[address] [place] [address] [place] [address] Vane Zarate Psychiatrist Psychiatry 03/22/12 [facility] Psychotherapist 08/04/17 [facility] Pelt Inspector 09/13/17 documented as of this encounter
--- OUTSIDE RECORDS SUMMARY | 2022-02-14 14:57 | XMS_ITS | Encounter Summary ---
:1970 Author Organization [facility] [employer] Address [address] [place] [address] Care Team Providers Name Role Phone Gagandeep Hinojosa MD Primary Care Provider Reason for Visit Reason Comments Lab Questions Encounter Details Date Type Department Care Team Description 12/11/2018 Telephone fluid Operations [facility] Gagandeep Hinojosa MD Lab Questions 1415 [facility] . [address] [place] [address] [place] [address] [phone] (Wo rk) Social History Tobacco Use Types [...] (Advise caller/patient can view test results in [employer], if enrolled) What test are you calling about? A1C from 11/28/18. Primary Preschool Adviser: Gagandeep Hinojosa MD Who ordered the test? (include first & last name) Gagandeep Hinojosa MD When and where was the test done? 11/28/18 - [facility] Additional comments (related to the above concern): [...] on filedocumented in this encounter Care Teams Signaling Project Engineer Relationship Specialty Start Date End Date Gagandeep Hinojosa MD PCP - General 05/17/12 1415 [facility] KATIANA Gerber [address] Vane Zarate Psychiatrsamantha Psychiatry 03/22/12 [facility] Psychotherapist 08/04/17 [facility] Scrap Crusher 09/13/17 documented as of this encounter
--- OUTSIDE RECORDS SUMMARY | 2022-02-14 14:57 | XMS_ITS | Encounter Summary ---
:1970 Author Organization [employer] Address [address], [place] [address] Care Team Providers Name Role Phone Gagandeep Hinojosa MD Primary Care Provider Reason for Referral (Routine) - Closed Specialty Diagnoses / Procedures Referred By Contact Refer red To Contact Diagnoses Chest pain, unspecified type Kailash Green DO Procedures Outreach Echocardiogram [address] [place] [address] Referral ID Status Reason Start Date Expiration Date Visits Requ ested Visits Authorized [id number] Closed 06/19/2018 09/18/2019 1 1 EL HEADING SUPERVISOR Encounter Details Date Type Department Care Team Description 06/02/2018 Hospital Encounter Heart & Vascular Chest pain, unspecified Center Echocardiogra m type (Primary Dx) [address] [place] [address] Social History Tobacco Use Types Packs/Day Years [...] EVERY DAY tabletIndications: ASHD (arteriosclerotic heart disease) ([facility]), Hyperlipidemia with target LDL less than 70 ([facility]) blood glucose (ONE Use to test [...] by mouth 0 12/2408/28/2019 MG capsule daily. [place] Carbonate 600 Take 600 mg by mouth [...] Results ECHO COMPLETE W CONTRAST ( (Order [id number]) Original Order Diagnosis: CHEST PAIN, CHEST PRESSURE, CHEST TIGHTENING Reading Provider(s) Marilu Charles MD PACs images are not viewable in [employer]. See text report below. 06/02/2018 1:30 [...] Mean PG - mmHg Marilu Charles M.D. Independent Marketing Consultant ANIYAH/camille / Lab and Collection ECHO COMPLETE W CONTRAST on 06/02/2018 Result History ECHO COMPLETE W CONTRAST on 06/02/2018 - Result Edited Hard Copy Result Report Open Hard Copy Results Report Removed from In Basket Done By Kailash Green DO on 06/03/2018 9:10 PM Patient Release Status: This result is not viewable by the patient. Patient Information Patient Name Timur Krishnamurthy ([id number]) Sex Male Room Bed Code Status 2214 EL HEADING SUPERVISOR documented in this encounter Plan of Treatment Not on filedocumented as of this encounter Procedures Procedure Name Priority Date/Time Associated Comments Diagnosis OUTREACH ECHOCARDIOGRAM Routine 06/02/2018 9:51 Chest pain, R esults for this AM TUNNEL HEADING SUPERVISOR unspecified type procedure a re in the results section. documented in this encounter Results Outreach Echocardiogram (06/02/2018 9:51 AM TUNNEL HEADING SUPERVISOR) Narrative PN POCT - 06/02/2018 9:51 AM TUNNEL HEADING SUPERVISOR Mis Mcneil ? 06/19/2018 ??9:52 AM Results ECHO COMPLETE W CONTRAST ( [id number]) (Order [id number]) Original Order Diagnosis: CHEST PAIN, CH EST PRESSURE, CHEST TIGHTENING Reading Provider(s) Marilu Charles MD PACs images are not viewable in [employer]. See text report below. 06/02/2018 1:30 [...] Mean PG - mmHg Marilu Charles M.D. Independent Marketing Consultant ANIYAH/camille / ?? Lab and Collection ECHO COMPLETE W CONTRAST on 06/02/2018 Result History ECHO COMPLETE W CONTRAST on 06/02/2018 - R esult Edited Hard Copy Result Report Open Hard Copy Results Report Removed from In Basket Done By Kailash Green AlvinDO batool on 06/03/2018 9:1 0 PM Patient Release Status: This result is not [facility]. Patient Information Patient Name Timur Krishnamurthy ([id number]) Sex Male Room Bed Code Status 2214 ?? Procedure Note Mis Mcneil - 06/19/2018 9:51 AM TUNNEL HEADING SUPERVISOR Results ECHO COMPLETE W CONTRAST ( [id number]) (Order [id number]) Original Order Diagnosis: CHEST PAIN, CH EST PRESSURE, CHEST TIGHTENING Reading Provider(s) Marilu Charles MD PACs images are not viewable in [employer] Link. See text report below. 06/02/2018 1:30 [...] Mean PG - mmHg Marilu Charles M.D. Independent Marketing Consultant ANIYAH/camille / Lab and Collection ECHO COMPLETE [...] humphrey. Patient Information Patient Name Timur Krishnamurthy ([id number]) Sex Male Room Bed Code Status 2214 Kailash Green DO PN ECHO ORDERABLES Performing Organization Address City/State/ZIP Code Phon e Number POCT PN POCT documented in this encounter Visit Diagnoses Diagnosis Chest pain, unspecified type - Primary documented in this encounter Care Teams Plumber'S Helper Relationship Specialty Start Date End Date Gagandeep Hinojosa MD PCP - General 05/17/12 1415 [facility] KAT[place] Gerber [address] Vane Zarate Psychiatrist Psychiatry 03/22/12 [facility] Psychotherapist 08/04/17 [facility] Immersion Metal Cleaner 09/13/17 documented as of this encounter
--- OUTSIDE RECORDS SUMMARY | 2022-02-14 14:57 | XMS_ITS | Encounter Summary ---
:1970 Author Organization [employer] Address [address] [place] [address] Care Team Providers Name Role Phone Gagandeep Hinojosa MD Primary Care Provider Encounter Details Date Type Department Care Team Description 11/28/2018 Lab Visit [facility] Encounter for long-term [address] (current) use of other [place] Vigil [address] medications (Primary Dx) [phone] Social History Tobacco Use Types Packs/Day Years [...] Complete Blood Count-W/Diff (11/28/2018 11:01 AM CDT) [facility] Method Time Signature WBC 8.4 3.5 - 10.5 11/28/2018 [facility] x10(9)/L 11:07 AM CDT LABORATORY RBC 4.90 4.32 - 11/28/2018 [facility] 5.72 11:07 AM CDT LABORATORY x10(12)/L Hemoglobin 14.7 13.5 - 11/28/2018 [facility] 17.5 g/dL 11:07 AM CDT LABORATORY HCT 40.2 38.8 - 11/28/2018 [facility] 50.0 % 11:07 AM CDT LABORATORY MCV 82.0 80.0 - 11/28/2018 [facility] 100.0 fL 11:07 AM CDT LABORATORY MCH 30.0 27.6 - 11/28/2018 [facility] 33.3 pg 11:07 AM CDT LABORATORY MCHC 36.6 (H) 31.5 - 11/28/2018 [facility] 35.2 g/dL 11:07 AM CDT LABORATORY RDW 12.1 11.9 - 11/28/2018 [facility] 15.5 % 11:07 AM CDT LABORATORY Platelets 253 150 - 450 11/28/2018 [facility] x10(9)/L 11:07 AM CDT LABORATORY Neutrophil 5.0 1.7 - 7.0 11/28/2018 [facility] Absolute 10(9)/L 11:07 AM CDT LABORATORY Lymphocyte 2.5 1.0 - 4.8 11/28/2018 [facility] Absolute 10(9)/L 11:07 AM CDT LABORATORY Monocytes 0.6 0.2 - 0.9 11/28/2018 [facility] Absolute 10(9)/L 11:07 AM CDT LABORATORY Eosinophil 0.2 0.0 - 0.5 11/28/2018 [facility] Absolute 10(9)/L 11:07 AM CDT LABORATORY Basophil 0.0 0.0 - 0.3 11/28/2018 [facility] Absolute 10(9)/L 11:07 AM CDT LABORATORY Specimen Anatomical Collection Method / Collection Time Recei abimael Time (Source) Location / Volume Laterality Blood Venipuncture / 11/28/2018 11:01 9 Unknown AM CDT 11:01 AM CDT Vane Zarate MD LAB_1 Performing Organization Address City/State/ZIP Code Phon e Number [facility] [address] [place] [address] (ABNORMAL) Carnitine Free And Total (11/28/2018 11:01 AM CDT) P athologist Signature Carnitine 0.6 0.1 - 1.0 11/30/2018 [facility] Kristen/Free 8:38 AM CDT LABORATORIES Ratio Comment: Performed by [facility], [address] [facility] [address] www.[employer], Bull Sultana MD, Lab. Director Carnitine Esterified 11 5 - 29 umol/L 11/30/2018 8:38 AM [employer] [facility] CDT Carnitine, Free 18 (L) 25 - 60 umol/L 11/30/2018 8:38 AM [employer] [facility] CDT Carnitine, Total 29 (L) 34 - 86 umol/L 11/30/2018 8:38 AM [employer] CDT Comment: Test developed and characteristics deter mined by [facility]. See Compliance Statement B : [email or web address] Specimen Anatomical Collection Method / Collection Time Recei abimael Time (Source) Location / Volume Laterality Blood Venipuncture / 11/28/2018 11: 9 Unknown AM CDT 11:01 AM CDT Vane Zarate MD LAB_1 Performing Organization Address City/State/ZIP Code Phon e Number [facility] [address] [place], [place] [address] CK, Total (11/28/2018 11:01 AM CDT) P athologist Signature CK, Total 51 30 - 200 11/28/2018 [place] U/L 3:19 PM CDT LABORATORY Specimen Anatomical Collection Method / Collection Time Recei abimael Time (Source) Location / Volume Laterality Blood Venipuncture / 11/28/2018 11: 9 Unknown AM CDT 11:01 AM CDT Vane Zarate MD LAB_1 Performing Organization Address City/State/ZIP Code Phon e Number [facility] [address] [place] [address] (ABNORMAL) Hgb A1C (11/28/2018 11:01 AM CDT) Patholo gist Method Time Signature Hemoglobin A1C 10.6 (H) <=5.6 % 11/28/2018 [facility] 5:00 PM CDT LABORATORY Specimen Anatomical Collection Method / Collection Time Recei abimael Time (Source) Location / Volume Laterality Blood Venipuncture / 11/28/2018 11:01 9 Unknown AM CDT 11:01 AM CDT Narrative [facility] - 11/28/2018 5:00 P M CDT For patients not previously diagnosed with diabetes: 5.7-6.4%: Increased risk for diabetes 6.5% and greater: Diagnostic for diabete s For patients diagnosed with diabetes: <8.0%: Goal of therapy for ages 18-75 Clinicians may recommend a higher or low er goal for specific individuals. Vane Zarate MD LAB_1 Performing Organization Address City/State/ZIP Code Phon e Number [facility] [address] [place] [address] Potassium (11/28/2018 11:01 AM CDT) P athologist Signature Potassium 5.0 3.5 - 5.1 11/28/2018 [facility] mmol/L 3:19 PM CDT LABORATORY Specimen Anatomical Collection Method / Collection Time Recei abimael Time (Source) Location / Volume Laterality Blood Venipuncture / 11/28/2018 11:01 9 Unknown AM CDT 11:01 AM CDT Vane Zarate MD LAB_1 Performing Organization Address [facility] Code Phon e Number [facility] [address] [place] [address] (ABNORMAL) Sodium (11/28/2018 11:01 AM CDT) P athologist Signature Sodium 135 (L) 136 - 145 11/28/2018 [facility] mmol/L 3:19 PM CDT LABORATORY Specimen Anatomical Collection Method / Collection Time Recei abimael Time (Source) Location / Volume Laterality Blood Venipuncture / 11/28/2018 11:01 9 Unknown AM CDT 11:01 AM CDT Vane Zarate MD LAB_1 Performing Organization Address [facility] Phon e Number [facility] [address] [place] [address] Creatinine / GFR (11/28/2018 11:01 AM CDT) P athologist Signature Creatinine 0.80 0.73 - 11/28/2018 [facility] 1.18 mg/dL 3:19 PM CDT LABORATORY GFR, Estimated >60 >60 11/28/2018 [facility] mL/min/1.7 3:19 PM CDT LABORATORY 3m2 GFR, Est If >60 >60 11/28/2018 [facility] mL/min/1.7 3:19 PM CDT LABORATORY Moroccan 3m2 Specimen Anatomical Collection Method / Collection Time Recei abimael Time (Source) Location / Volume Laterality Blood Venipuncture / 11/28/2018 11: 9 Unknown AM CDT 11:01 AM CDT Vane Zarate MD LAB_1 Performing Organization Address City/[facility]/ZIP Code Phon e Number [facility] [address] [place] [address] T4, Total (11/28/2018 11:01 AM CDT) P athologist Signature T4, Total 6.5 5.0 - 11.0 11/28/2018 [facility] mcg/dL 7:37 PM CDT [facility] Specimen Anatomical Collection Method / Collection Time Recei abimael Time (Source) Location / Volume Laterality Blood Venipuncture / 11/28/2018 11: 9 Unknown AM CDT 11:01 AM CDT Vane Zarate MD LAB_1 Performing Organization Address City/[facility]/ZIP Code Phon e Number [address] [address] (ABNORMAL) T3, Total (11/28/2018 11:01 AM CDT) Analysis Performed At Patho logist Time Signature Triiodothyroni 75 (L) 80 - 200 11/29/2018 [facility] ne, Total ng/dL 11:38 AM CDT LABORATORIES (Total T3) Comment: REFERENCE INTERVAL: Triiodothyronine, To ora (Total T3) Access complete set of age- and/or gende r-specific reference intervals for this test in the [employer] Labo ratory Test Directory ([employer]). Performed by [facility], [address] [place] [address] www.[employer], Bull Sultana MD, Lab. Director Specimen Anatomical Collection Method / Collection Time Recei abimael Time (Source) Location / Volume Laterality Blood Venipuncture / 11/28/2018 11:01 9 Unknown AM CDT 11:01 AM CDT Vane Zarate MD LAB_1 Performing Organization Address City/State/ZIP Code Phon e Number [facility] [address] [place], [place] [address] TSH (11/28/2018 11:01 AM CDT) P athologist Signature TSH, Sensitive 0.85 0.30 - 11/28/2018 [facility] 4.50 4:19 PM CDT LABORATORY uIU/mL Specimen Anatomical Collection Method / Collection Time Recei abimael Time (Source) Location / Volume Laterality Blood Venipuncture / 11/28/2018 11:01 9 Unknown AM CDT 11:01 AM CDT Vane Zarate MD LAB_1 Performing Organization Address City/State/ZIP Code Phon e Number [facility] [address] [place] [address] documented in this encounter Visit Diagnoses Diagnosis Encounter for long-term (current) use of other medications - Primary documented in this encounter Care Teams Line Puller Relationship Specialty Start Date End Date Gagandeep Hinojosa MD PCP - General 05/17/12 [address] [place], [place] [address] Vane Zarate Psychiatrist Psychiatry 03/22/12 [facility] Psychotherapist 08/04/17 [facility] Vice President Education 09/13/17 documented as of this encounter
--- OUTSIDE RECORDS SUMMARY | 2022-02-14 14:57 | XMS_ITS | Encounter Summary ---
:1970 Author Organization [employer] Address [address], [place] [address] Care Team Providers Name Role Phone Gagandeep Hinojosa MD Primary Care Provider Reason for Visit Reason Comments [facility] Face To Face Visit Encounter Details Date Type Department Care Team Description 02/15/2018 Care Coord Deborah Odom, [facility] Fa ce To Face Office Visit Medicine [facility] Visit [address] [place] [address] [facility]. [facility] [place] [address] [place] [address] [phone] Social History Tobacco Use Types Packs/Day Years Used Date Smoking Tobacco: Former Cigarettes 1 25 Smokeless Tobacco: Former Qu it: 10/25/2012 Comments: Smoking History Packs/day: Alcohol Use Standard Drinks/Week Comments No 0 (1 standard drink = 0.6 oz pure Alcoho lic Drinks/day: Amount:0; alcohol) Freq:Never; Sex Assigned at Date Recorded Not on file documented as of this encounter Progress Notes Deborah Rodrigues, [facility] - 02/15/2018 11:00 AM CDT Care Coordination Visit Pt: Timur Krishnamurthy Referred by: Gagandeep Hinojosa MD Reason for visit: Care Coordination Timur was seen alone. Discussion/actions: Met with Rustam for a scheduled [facility] appointment. RN Pediatric Licensed Practical Nurse, Judy Pittman, was present for the appointment. [...] Rustam did say that he attends the [employer] once a week, and feels like [...] Primary documented in this encounter Care Teams Swatcher Relationship Specialty Start Date End Date Gagandeep Hinojosa MD PCP - General 05/17/12 [address] [place] [address] Vane Zarate Psychiatrist Psychiatry 03/22/12 [facility] Psychotherapist 08/04/17 [facility] CM Deputy Sheriff/Investigator 09/13/17 documented as of this encounter
--- OUTSIDE RECORDS SUMMARY | 2022-02-14 14:57 | XMS_ITS | Encounter Summary ---
:1970 Author Organization [facility] Address [address] [place] [address] Care Team Providers Name Role Phone Gagandeep Hinojosa MD Primary Care Provider Encounter Details Date Type Department Care Team Description 01/19/2018 Lab Visit [facility] Encounter for long-term [address] (current) use of KATIANA Vigil [address] medications [phone] Social History Tobacco Use Types Packs/Day Years [...] - 01/19/2018 4:07 [place] [address] CLIA number [id number] Joey Zarate MD LAB_1 Performing Organization Address City/State/ZIP Code Phon e Number [facility] [address] [place] [address] T3, Free, Serum (01/19/2018 11:41 AM CDT) athologist Signature Triiodothyronin 2.5 1.7 - 3.7 [facility] e, Free pg/mL Specimen Anatomical Collection Method Collection Time Receive d Time (Source) Location / / Volume Laterality 01/19/2018 11:41 01/19/2018 3:07 AM CDT PM CDT Narrative PN SOFT - 01/19/2018 4:07 PM CDT Performed at [place] [address] [place] [address] CLIA number [id number] .Results faxed to Jennifer Zarate M.D 9,[phone], 01/19/2018,16:15, by [place] Joey Zarate MD LAB_1 Performing Organization Address [facility] Code Phon e Number [facility] [address] [place] [address] (ABNORMAL) TSH (01/19/2018 11:41 AM CDT) Patholo gist Method Time Signature Thyroid 4.52 (H) 0.30 - PN SOFT Stimulating 4.50 Hormone uIU/mL Specimen Anatomical Collection Method Collection Time Receive d Time (Source) Location / / Volume Laterality 01/19/2018 11:41 01/19/2018 3:07 AM CDT PM CDT Narrative PN SOFT - 01/19/2018 4:07 PM CDT Performed at [facility] [place] [address] CLIA number [id number] Joey Zarate MD LAB_1 Performing Organization Address [facility] Code Phon e Number PN [facility] [address] [place] [address] (ABNORMAL) Sodium (01/19/2018 11:41 AM CDT) P athologist Signature Sodium 135 (L) 136 - 145 [facility] mmol/L Specimen Anatomical Collection Method Collection Time Receive d Time (Source) Location / / Volume Laterality 01/19/2018 11:41 01/19/2018 2:49 AM CDT PM CDT Narrative PN SOFT - 01/19/2018 3:54 PM CDT Performed at [facility], [address] [place] [address] CLIA number [id number] Joey Zarate MD LAB_1 Performing Organization Address [facility] Phon e Number PN SOFT [address] [place] [address] (ABNORMAL) Creatinine / GFR (01/19/2018 11:41 AM [...] [facility], [address] [place] [address] CLIA number [id number] Joey Zarate MD LAB_1 Performing Organization Address [facility] Phon e Number PN SOFT [address] [place] [address] [place] (01/19/2018 11:41 AM CDT) Analysis Performed At Patho logist Time Signature Date Last Dose 01-19-2018 PN SOFT Lith Time Last Dose 730 am PN SOFT [place] Level 0.73 0.50 - PN SOFT 1.10 mmol/L Specimen Anatomical Collection Method Collection Time Receive d Time (Source) Location / / Volume Laterality 01/19/2018 11:41 01/19/2018 3:09 AM CDT PM CDT Narrative PN SOFT - 01/19/2018 3:38 PM CDT Performed at [facility], [address] [place] [address] CLIA number [id number] Joey Zarate MD LAB_1 Performing Organization Address [facility] Phon e Number PN SOFT [address] [place] [address] (ABNORMAL) Hgb A1c (01/19/2018 11:41 AM CDT) P athologist Signature HGB A1C 8.0 (H) 4.0 - 5.6 % PN SOFT Specimen Anatomical Collection Method Collection Time Receive d Time (Source) Location / / Volume Laterality 01/19/2018 11:41 01/19/2018 3:10 AM CDT PM CDT Narrative PN SOFT - 01/19/2018 10:04 PM CDT Performed at [facility], [facility] [place] [address] CLIA number [id number] .Results faxed to Jennifer Zarate M.D 9,[phone], 01/19/2018,16:15, by [place] Joey Zarate MD LAB_1 Performing Organization Address City/[facility] Phon e Number [facility] [address] [place] [address] Call List Questions (01/19/2018 11:35 AM CDT) athologist Signature Call Back Done PN KENDAL Documented Specimen (Source) Anatomical Collection Method Collection Time Re ceived Time Location / / Volume Laterality 01/19/2018 11:35 AM CDT Narrative PN SOFT - 01/19/2018 11:35 AM CDT Performed at [facility], [address] [place] [address] CLIA number [id number] Joey Zarate MD LAB_1 Performing Organization Address [facility] Phon e Number SOFT [address] [place] [address] documented in this encounter Visit Diagnoses Diagnosis Encounter for long-term (current) use of medications Encounter for long-term (current) use of other medications documented in this encounter Care Teams Batch Freezer Operator Relationship Specialty Start Date End Date Gagandeep Hinojosa MD PCP - General 05/17/[address] [place] [address] Vane Zarate Psychiatrist Psychiatry 03/22/12 [facility] Psychotherapist 08/04/17 [facility] Copy Technician 09/13/17 documented as of this encounter
--- OUTSIDE RECORDS SUMMARY | 2022-02-14 14:57 | XMS_ITS | Encounter Summary ---
:1970 Author Organization [employer] Address [address] [place] [address] Care Team Providers Name Role Phone Gagandeep Hinojosa MD Primary Care Provider Reason for Visit Reason Comments Mental Health Concerns Encounter Details Date Type Department Care Team Description 11/03/2018 Care Coord [facility] Deborah Rodrigues, Mental Health Phone Medicine [facility] Concerns [address] [facility]. [facility] [place] [address] [place] [address] [phone] Social History Tobacco Use Types Packs/Day Years [...] Diagnosis:??Bipolar I Disposition:??Home, self care ?? Needs [facility] follow-up with PCP and care coordination. Have reached out several times, but have not gotten a return call. documented in this encounter Plan of Treatment Not on filedocumented as of this encounter Visit Diagnoses Diagnosis Health long-term, active care coordinati on - Primary documented in this encounter Care Teams Drum Builder Relationship Specialty Start Date End Date Gagandeep Hinojosa MD PCP - General 05/17/12 [facility] [place] [address] Vane Zarate Psychiatrist Psychiatry 03/22/12 [facility] Psychotherapist 08/04/17 [facility] Medical Cost Consultant 09/13/17 documented as of this encounter
--- OUTSIDE RECORDS SUMMARY | 2022-02-14 14:57 | XMS_ITS | Encounter Summary ---
:1970 Author Organization [employer] Address [address] [place] [address] Care Team Providers Name Role Phone Gagandeep Hinojosa MD Primary Care Provider Reason for Visit Reason Comments [facility] Phone Visit Encounter Details Date Type Department Care Team Description 02/08/2018 Care Coord Phone Judy Luke R N [facility] Phone Visit Medicine 1415 [facility] 1415 [facility] [place] [address] [place] [address] [phone] Social History Tobacco Use Types Packs/Day Years [...] RN - 02/08/2018 10:29 AM CDT RN Application Consultant - Diabetes Follow-Up Current diabetes medication regimen: [...] fpc, active care coordinati on - Primary Type 2 diabetes mellitus with insulin th fan (HRC) documented in this encounter Care Teams Medical Leader Relationship Specialty Start Date End Date Gagandeep Hinojosa MD PCP - General 05/17/[address] [place] [address] [place] Gerber [address] Vane Zarate Psychiatrist Psychiatry 03/22/12 [facility] Mental Health Psychotherapist 08/04/17 [facility] Tractor Trailer Mechanic 09/13/17 documented as of this encounter
--- OUTSIDE RECORDS SUMMARY | 2022-02-14 14:57 | XMS_ITS | Encounter Summary ---
:1970 Author Organization [employer] Address [address] [place] [address] Care Team Providers Name Role Phone Gagandeep Hinojosa MD Primary Care Provider Reason for Visit Reason Comments Appt. Work In Request APWI for today, Pt having lo w back pain to the left side, possible pinched nerve. Encounter Details Date Type Department Care Team Description 10/13/2018 Nurse Triage Gagandeep Storm Appt. Wo rk In Request Romario Rubio MD (APWI for today, Pt [address] [place] [address] Ave to the left side, [place] [address] possible pinched [phone] nerve. ) (Work) Social History Tobacco Use [...] wants to be seen Protocols used: BACK [id number] Analy Elias - 10/13/2018 8:52 AM CDT [...] on filedocumented in this encounter Care Teams Improvement Coordinator Relationship Specialty Start Date End Date Gagandeep Hinojosa MD PCP - General 05/17/12 1415 [facility] [place] [address] Vane Zarate Psychiatrist Psychiatry 03/22/12 [facility] Psychotherapist 08/04/17 [facility] Millwright 09/13/17 documented as of this encounter
--- OUTSIDE RECORDS SUMMARY | 2022-02-14 14:57 | XMS_ITS | Encounter Summary ---
:1970 Author Organization [employer] Address [address] [place] [address] Care Team Providers Name Role Phone Gagandeep Hinojosa MD Primary Care Provider Reason for Visit Reason Comments HC Face To Face Visit Encounter Details Date Type Department Care Team Description 02/15/2018 Care Coord Judy Luke RN [facility] Face To Face Office Visit Medicine 1415 [facility] Visit [address] [place] [address] Social History Tobacco Use Types Packs/Day Years [...] RN - 02/15/2018 11:00 AM CDT RN Nutrition Worker Visit Pt: Timur Krishnamurthy Referred by: [...] is a joint visit with Lesly Rodrigues, [facility] Nutrition Worker. Mental Health and Smoking Cessation See Lesly's [...] Finance, Emotional and Transportation. BG Goals: Health Long-Term Lab Goal <7 [...] Continue using sliding scale, as prescribed. RN Nutrition Worker as needed for questions. Scheduled follow up [...] (HRC) documented in this encounter Care Teams Jacquard Card Lacer Relationship Specialty Start Date End Date Gagandeep Hinojosa MD PCP - General 05/17/12 1415 [place] [address] Vane Zarate Psychiatrist Psychiatry 03/22/12 [facility] Psychotherapist 08/04/17 [facility] Ad Operations Intern 09/13/17 documented as of this encounter
--- OUTSIDE RECORDS SUMMARY | 2022-02-14 14:57 | XMS_ITS | Encounter Summary ---
:1970 Author Organization [employer] Address [address] [place] [address] Care Team Providers Name Role Phone Gagandeep Hinojosa MD Primary Care Provider Reason for Visit Reason Comments [facility] Phone Visit Encounter Details Date Type Department Care Team Description 01/31/2018 Care Coord Phone Judy Luke R N [facility] Phone Visit Medicine 1415 [facility] 1415 [facility] [place] [address] [place] [address] [phone] Social History Tobacco Use Types Packs/Day Years [...] RN - 01/31/2018 12:43 PM CDT RN Visually Impaired Teacher - Diabetes Follow-Up Current diabetes medication regimen: [...] nursing, active care coordinati on - Primary Uncontrolled type 2 diabetes mellitus wi th hyperglycemia (HRC) Uncontrolled type 2 diabetes mellitus wi th complication, with long-term current use of insulin documented in this encounter Care Teams Emergency Communications Officer Relationship Specialty Start Date End Date Gagandeep Hinojosa MD PCP - General 05/17/12 [facility] [place] [address] Vane Zarate Psychiatrsamantha Psychiatry 03/22/12 [facility] Psychotherapist 08/04/17 [facility] Technology Recruiter 09/13/17 documented as of this encounter
--- OUTSIDE RECORDS SUMMARY | 2022-02-14 14:57 | XMS_ITS | Encounter Summary ---
:1970 Author Organization [employer] Address [address], [place] [address] Care Team Providers Name Role Phone Gagandeep Hinojosa MD Primary Care Provider Reason for Referral (Routine) - Closed Specialty Diagnoses / Procedures Referred By Contact Refer red To Contact Diagnoses Chest pain at rest Zara Fox MD Procedures Outreach Nuclear Study [address] [facility] [place], [place] [address] Referral ID Status Reason Start Date Expiration Date Visits Requ ested Visits Authorized [id number] Closed 08/16/2018 11/15/2019 1 1 Encounter Details Date Type Department Care Team Description 08/04/2018 Hospital Encounter Heart & Vascular Chest pain at rest Center Nuclear (Primary Dx) Cardiology [address] [facility] [place] [place] [address] Social History Tobacco Use Types [...] MG daily. tabletIndications: ASHD (arteriosclerotic heart disease) ([facility]), Hyperlipidemia with target LDL less than 70 ([facility]) blood glucose (ONE Use to test [...] by mouth 0 12/2408/28/2019 MG capsule daily. Cordele Carbonate 600 Take 600 mg by mouth [...] NM CARDIAC MPI STRESS TEST ( (Order [id number]) STRESS TEST PHARMACOLOGICAL ( (Order [id number]) Original Order Diagnosis: Chest pain at rest [R07.9 (ICD-10-CM)] Chest pain at rest [R07.9 (ICD-10-CM)] Reading Provider(s) Juan Daniel Caba MD PACs images are not viewable in [facility] Link. See text report below. 08/20/2018 4:54 [...] patient. Patient Information Patient Name Timur Krishnamurthy ([id number]) Sex Male documented in this encounter Plan [...] Results NM CARDIAC MPI STRESS TEST ( [id number]) (Order [id number]) STRESS TEST PHARMACOLOGICAL (Accession A [id number]) (Order [id number]) Original Order Diagnosis: Chest pain at rest [R07.9 (ICD-10-CM)] Chest pain at rest [R07.9 (ICD-10-CM)] ? ? Reading Provider(s) Juan Daniel Caba MD PACs images are not viewable in [facility] Link. See text report below. 08/20/2018 4:54 [...] This result is not viewable by the [facility]. Patient Information Patient Name Timur Krishnamurthy ([id number]) Sex Male Procedure Note Bailee Reynoldslys - 08/04/2018 11:59 PM CD T Results NM CARDIAC MPI STRESS TEST ( [id number]) (Order [id number]) STRESS TEST PHARMACOLOGICAL (Accession A [id number]) (Order [id number]) Original Order Diagnosis: Chest pain at rest [R07.9 (ICD-10-CM)] Chest pain at rest [R07.9 (ICD-10-CM)] Reading Provider(s) Juan Daniel Caba MD PACs images are not viewable in [facility] Link. See text report below. 08/20/2018 4:54 [...] humphrey. Patient Information Patient Name Timur Krishnamurthy ([id number]) Sex Male Zara Fox MD PN CARDIAC SERVICES ORDERABL ES Performing Organization Address City/State/ZIP Code Phon e Number POCT PN POCT documented in this encounter Visit Diagnoses Diagnosis Chest pain at rest - Primary Chest pain, unspecified documented in this encounter Care Teams General Studies Program Chair Relationship Specialty Start Date End Date Gagandeep Hinojosa MD PCP - General 05/17/12 1415 [facility] [place] [address] Vane Zarate Psychiatrsamantha Psychiatry 03/22/12 [facility] Psychotherapist 08/04/17 [facility] Elementary Instructional Coach 09/13/17 documented as of this encounter
--- OUTSIDE RECORDS SUMMARY | 2022-02-14 14:57 | XMS_ITS | Encounter Summary ---
:1970 Author Organization [email or web address] Address [address] [place] [address] Care Team Providers Name Role Phone Gagandeep Michaud MD Primary Care Provider Reason for Visit Reason Onset Date Comments Refill 06/07/2018 amLODIPine (NORVASC) 10 MG tablet Encounter Details Date Type Department Care Team Description 06/07/2018 Refill [facility] Gagandeep Michaud, Refil l (amLODIPine Medicine (NORVASC) 10 MG tablet) 1415 [facility] . 1415 [place] [address] [place], [place] [address] (Wo rk) Social History Tobacco Use Types [...] med check for further refills per provider. HYSICAL PARTY CHIEF Gagandeep Michaud MD - 06/08/2018 10:28 AM CST Call patient HYSICAL PARTY CHIEF Merlyn Urias RN - 06/08/2018 10:27 AM [...] Sig: Take 1 Tablet by mouth daily. HYSICAL PARTY CHIEF Interface, Out Surescripts Prov Query - 06/07/2018 [...] office visit) Last qualifying visit: 01/16/2018 (with GAAGNDEEP MICHAUD) Next scheduled visit: None SBP: 124 mm Hg on 01/16/2018 DBP: 76 mm Hg on 01/16/2018 Powered by [employer], Reference: [id number], 06/07/2018 3:34:49 PM GEOPHYSICAL PARTY CHIEF, Pool: MANUEL LANDACHIP ([id number]) HYSICAL PARTY CHIEF documented in this encounter Plan of Treatment Not on filedocumented as of this encounter Visit Diagnoses Diagnosis Uncontrolled type 2 diabetes mellitus wi thout complication, without long-term current use of insulin documented in this encounter Care Teams Offset Printer Relationship Specialty Start Date End Date Gagandeep Michaud MD PCP - General 05/17/12 1415 [facility] [place] [address] Vane aZrate Psychiatrist Psychiatry 03/22/12 [facility] Psychotherapist 08/04/17 [facility] Apartment Leasing Manager 09/13/17 documented as of this encounter
--- OUTSIDE RECORDS SUMMARY | 2022-02-14 14:57 | XMS_ITS | Encounter Summary ---
:1970 Author Organization [facility] Address [address] [place] [address] Care Team Providers Name Role Phone Gagandeep Hinojosa MD Primary Care Provider Reason for Referral (Routine) - Closed Specialty Diagnoses / Procedures Referred By Contact Refer red To Contact Diagnoses LV dysfunction Gagandeep Hinojosa MD Procedures Echocardiogram 1415 [facility] [place] [address] Referral ID Status Reason Start Date Expiration Date Visits Requ ested Visits Authorized [id number] Closed 08/07/2018 11/06/2019 1 1 Reason for Visit Reason Comments Follow-up Test results Encounter Details Date Type Department Care Team Description 08/07/2018 Office Visit Gagandeep Storm LV dysfu nction Romario Rubio MD (Primary Dx) 1415 [facility] . [address] [place] [address] [address] [phone] [place], [place] [address] Social History Tobacco Use [...] Noted ??? Hyponatremia 01/16/2018 ??? Tobacco abuse ([facility]) 02/24/2016 ??? Tinea versicolor 07/18/2015 ??? Tobacco use disorder ([facility]) 10/26/2012 ??? Anemia 05/02/2012 Overview Note: Anemia, unspecified ??? Microalbuminuria 02/04/2012 ??? VT, old ([facility]) 09/16/2011 ??? History of PTCA 09/16/2011 Overview Note: History of PTCA 04/2011 BMS RCA ??? Obesity, Class I, BMI 30-34.9 ([facility]) 09/16/2011 Overview Note: Body mass index is 31.16 kg/(m^2). ??? Hyperlipidemia with target LDL less than 70 ([facility]) 06/08/2011 Overview Note: Hyperlipidemia LDL goal < 70 ??? ASHD (arteriosclerotic heart disease) ([facility]) 05/04/2011 ??? Erectile dysfunction 01/22/2011 Overview Note: side effect Risperdal ??? Type 2 diabetes mellitus, uncontrolled ([facility]) 12/11/2010 Overview Note: Type II or unspecified type diabetes mellitus without mention of complication, uncontrolled ([facility]) ??? Dermatophytosis of body 09/04/2010 Class: Historical Overview Note: Tinea Corporis ??? Coronary atherosclerosis ([facility]) 12/22/2009 Overview Note: LW Modifier: mod RCA, negative nuclear stress test ; CAD ??? Nonspecific abnormal results of liver function study 12/22/2009 Overview Note: Liver Function Tests Abnormal ??? Bipolar I disorder ([facility]) 09/15/2005 Overview Note: LW Onset: [id number] ; Bipolar I Dis FAMILY HISTORY OR [...] CAPSULE BY MOUTH EVERY DAY 0 ??? Cerulean Carbonate 600 MG capsule Take 600 mg [...] 1 Tablet by mouth. 01/16/2018: [facility] Re[facility] Sig: Take 1 tablet [...] unspecified documented in this encounter Care Teams Barometers Calibrator Relationship Specialty Start Date End Date Gagandeep Hinojosa MD PCP - General 05/17/12 1415 [facility] [place] [address] Vane Zarate Psychiatrsamantha Psychiatry 03/22/12 [facility] Psychotherapist 08/04/17 [facility] Rn Transplant 09/13/17 documented as of this encounter
--- OUTSIDE RECORDS SUMMARY | 2022-02-14 14:57 | XMS_ITS | Encounter Summary ---
:1970 Author Organization [employer] Address [address] [place] [address] Care Team Providers Name Role Phone Gagandeep Hinojosa MD Primary Care Provider Encounter Details Date Type Department Care Team Description 07/27/2018 Lab Visit [facility] Uncontrolled type [address] mellitus with hyperglycemia [place] [address] ([facility]) [phone] Social History Tobacco Use Types Packs/Day Years [...] Hemoglobin (HB A1C) (07/27/2018 2:02 PM CDT) [facility] gist Method Time Signature Hemoglobin A1C 10.9 (H) <=5.6 % 07/27/2018 [place] (Rapid) 2:15 PM CDT LABORATORY Specimen Anatomical Collection Method / Collection Time Recei abimael Time (Source) Location / Volume Laterality Blood Venipuncture / 07/27/2018 2:02 07/27/2018 2:03 Unknown PM CDT PM CDT Narrative [facility] - 07/27/2018 2:15 PM CDT This Rapid A1c test is designed for charlotte toring patients with an established diagnosis of diabetes mellitus. This rapid method is not suitable to establish the initial diagnosis of diabetes mellitus. Performe d using Point of Care Instrumentation. Gagandeep Hinojosa MD LAB_1 Performing Organization Address City/State/ZIP Code Phon e Number [facility] 14[address] [facility] [place] [address] documented in this encounter Visit Diagnoses Diagnosis Uncontrolled type 2 diabetes mellitus wi th hyperglycemia (HRC) documented in this encounter Care Teams It Instructor Relationship Specialty Start Date End Date Gagandeep Hinojosa MD PCP - General 05/17/12 1415 [facility] [place] [place] [address] Vane Zarate Psychiatrist Psychiatry 03/22/12 [facility] Psychotherapist 08/04/17 [facility] Retail Helper 09/13/17 documented as of this encounter
--- OUTSIDE RECORDS SUMMARY | 2022-02-14 14:57 | XMS_ITS | Encounter Summary ---
:1970 Author Organization [facility] Address [address] [place] [address] Care Team Providers Name Role Phone Gagandeep Hinojosa MD Primary Care Provider Reason for Visit Reason Comments Post Hospital Discharge Follow Up Encounter Details Date Type Department Care Team Description 07/31/2018 [facility] Gagandeep Hinojosa, Post Hospital Discharge Medicine MD Follow Up 1415 [facility] . [address] [place] [address] [place] [address] [phone] (Wo rk) Social History Tobacco Use Types [...] follow up call completed. See doc flowsheet: HOSMI for details. documented in this encounter Plan of Treatment Not on filedocumented as of this encounter Visit Diagnoses Not on filedocumented in this encounter Care Teams Packaging Supervisor Relationship Specialty Start Date End Date Gagandeep Hinojosa MD PCP - General 05/17/[address] [place] [address] Vane Zarate Psychiatrist Psychiatry 03/22/12 [facility] Mental Health Psychotherapist 08/04/17 [facility] Rug Inspector Helper 09/13/17 documented as of this encounter
--- OUTSIDE RECORDS SUMMARY | 2022-02-14 14:57 | XMS_ITS | Encounter Summary ---
:1970 Author Organization [employer] Address [address] [place] [address] Care Team Providers Name Role Phone Gagandeep Hinojosa MD Primary Care Provider Encounter Details Date Type Department Care Team Description 01/26/2018 Lab Visit [facility] Hyperkalemia 1415 [facility] . [place], [place] [address] Social History Tobacco Use Types Packs/Day Years [...] - 01/26/2018 11:38 AM CDT Performed at [facility], [address] [place] [address] CLIA number [id number] Gagandeep Hinojosa MD LAB_1 Performing Organization Address City/State/ZIP Code Phon e Number [facility] [address] [place] [address] documented in this encounter Visit Diagnoses Diagnosis Hyperkalemia Hyperpotassemia documented in this encounter Care Teams Computer Forwarding System Markup Clerk Relationship Specialty Start Date End Date Gagandeep Hinojosa MD PCP - General 05/17/12 1415 [facility] [place] [address] Vane Zarate Psychiatrist Psychiatry 03/22/12 [facility] Mental Health Psychotherapist 08/04/17 [facility] Hardwood Floor Refinisher 09/13/17 documented as of this encounter
--- OUTSIDE RECORDS SUMMARY | 2022-02-14 14:57 | XMS_ITS | Encounter Summary ---
:[address] [facility] Address [address] [place] [address] Care Team Providers Name Role Phone Gagandeep Hinojosa MD Primary Care Provider Reason for Referral Consult/Transfer Care (Routine) - Closed Specialty Diagnoses / Procedures Referred By Contact Refer red To Contact Diagnoses Uncontrolled type 2 diabetes mellitus with hyperglycemia (HRC) Gagandeep Hinojosa MD [address] [facility] [place] [address] Referral ID Status Reason Start Date Expiration Date Visits Requ ested Visits Authorized [id number] Closed 07/27/2018 10/26/2019 1 1 Scheduling Instructions [...] Rubio MD Bipolar I disorder (HR); [address] [employer] 1415 [facility] ASHD (ar teriosclerotic heart disease); Ave. Ave Hyperlipidemia LDL goal < 70; [place] [address] [place] Essential hypertension; [phone] [id number] 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, uncontrolled (HRC); [phone] Diabetic polyne uropathy associated with type 2 diabetes mellitus ([facility]); (Work) Type II diabetes mellitus with ophthalmi c manifestations, uncontrolled ([facility]); [phone] Background diab etic retinopathy ([facility]); (Fax) Nonproliferativ e diabetic retinopathy ([facility]); terminal operations supervisor curre nt use of insulin ([facility]); Type 2 diabetes mellitus with complication, with long-term current use of insulin ([facility]); Hyperlipidemia, unspecified hyperlipidemia type; Tobacco use dis [...] CAPSULE BY MOUTH EVERY DAY 0 ??? Argenta Carbonate 600 MG capsule Take 600 mg by mouth daily at bedtime. 01/16/2018: Received from: External Pharmacy Received Sig: TAKE ONE CAPSULE BY MOUTH AT BEDTIME 0 ??? metFORMIN (GLUCOPHAGE) 500 MG tablet Take 2 Tablets by mouth two times a day with meals. 360 Tablet 0 ??? multivitamin (THERAGRAN) tablet Take 1 Tablet by mouth. 01/16/2018: Received from: [facility] Received Sig: Take 1 tablet by [...] Uncontrolled type 2 diabetes mellitus with hyperglycemia ([facility]) E11.65 POCT Glycosylated Hemoglobin (HB A1C) CARE COORDINATION - PRIMARY CARE CONSULT 2. Bipolar I disorder ([facility]) F31.9 3. ASHD (arteriosclerotic heart disease) ([facility]) I25.10 atorvastatin (LIPITOR) 80 MG tablet 4. Hyperlipidemia LDL goal < 70 E78.5 atorvastatin (LIPITOR) 80 MG tablet 5. Essential hypertension ([facility]) I10 amLODIPine (NORVASC) 10 MG tablet metoprolol [...] Hemoglobin (HB A1C) (07/27/2018 2:02 PM CDT) [facility] gist Method Time Signature Hemoglobin A1C 10.9 (H) <=5.6 % 07/27/2018 [facility] (Rapid) 2:15 PM CDT LABORATORY Specimen Anatomical Collection Method / Collection Time Recei abimael Time (Source) Location / Volume Laterality Blood Venipuncture / 07/27/2018 2:02 07/27/2018 2:03 Unknown PM CDT PM CDT Narrative [facility] - 07/27/2018 2:15 PM CDT This Rapid A1c test is designed for charlotte toring patients with an established diagnosis of diabetes mellitus. This rapid method is not suitable to establish the initial diagnosis of diabetes mellitus. Performe d using Point of Care Instrumentation. Gagandeep Hinojosa MD LAB_1 Performing Organization Address City/State/ZIP Code Phon e Number [facility] [address] [place] [address] documented in this encounter Visit Diagnoses Diagnosis Uncontrolled type 2 diabetes mellitus wi th hyperglycemia (HRC) - Primary Bipolar I disorder ([facility]) Bipolar I disorder, most recent episode (or current) unspecified ASHD (arteriosclerotic heart disease) ([facility]) Coronary atherosclerosis of unspecified type of vessel, table mountain or graft Hyperlipidemia, unspecified hyperlipidem ia type [...] with ophthalmic manifestations, not stated as uncontrolled terminal operations supervisor current use of insulin (HRC) Encounter for long-term (current) use of insulin Type 2 diabetes mellitus with complicati on, with long-term current use of insulin ([facility]) Tobacco use disorder ([facility]) Tobacco use disorder documented in this encounter Care Teams Integrity Specialist Relationship Specialty Start Date End Date Gagandeep Hinojosa MD PCP - General 05/17/12 [address] [place] [address] Vane Zarate Psychiatrist Psychiatry 03/22/12 [facility] Psychotherapist 08/04/17 [facility] Db2 Systems Programmer 09/13/17 documented as of this encounter
--- OUTSIDE RECORDS SUMMARY | 2022-02-14 14:57 | XMS_ITS | Encounter Summary ---
:1970 Author Organization [employer] Address [address], [place] [address] Care Team Providers Name Role Phone Gagandeep Hinojosa MD Primary Care Provider Reason for Visit Reason Comments [facility] Face To Face Visit Encounter Details Date Type Department Care Team Description 01/26/2018 Care Coord Deborah Odom, [facility] Fa ce To Face Office Visit Medicine [facility] Visit [address] [facility] [address] [place] [address] [phone] Social History Tobacco Use Types Packs/Day Years Used Date Smoking Tobacco: Former Cigarettes 1 25 Smokeless Tobacco: Former Qu it: 10/25/2012 Comments: Smoking History Packs/day: Alcohol Use Standard Drinks/Week Comments No 0 (1 standard drink = 0.6 oz pure Alcoho lic Drinks/day: Amount:0; alcohol) Freq:Never; Sex Assigned at Date Recorded Not on file documented as of this encounter Progress Notes Deborah Rodrigues, [facility] - 01/26/2018 10:00 AM CDT Care Coordination Visit Pt: Timur Krishnamurthy Referred by: Gagandeep Hinojosa MD Reason for visit: Care Coordination Timur was seen alone. Discussion/actions: Met with Rustam for a scheduled [facility] appointment. RN Activities Director Scouting, Judy Pittman, was present for the appointment. [...] starting to attend a Tuesday group through [facility], as it is not affordable for him to attend an IOP program. Rustam is also thinking about the possibility of attending an adult day program, if his MH CM can get funding through the [facility]. Rustam stated that he has not come [...] Primary documented in this encounter Care Teams Duplication Specialist Relationship Specialty Start Date End Date Gagandeep Hinojosa MD PCP - General 05/17/12 [address] [place] [address] Vane Zarate Psychiatrist Psychiatry 03/22/12 [facility] Health Psychotherapist 08/04/17 [facility] Pill Coater 09/13/17 documented as of this encounter
--- OUTSIDE RECORDS SUMMARY | 2022-02-14 14:57 | XMS_ITS | Encounter Summary ---
:1970 Author Organization [employer] Address [address] [place] [address] Care Team Providers Name Role Phone Gagandeep Hinojosa MD Primary Care Provider Reason for Visit Reason Comments Lab Questions Encounter Details Date Type Department Care Team Description 01/23/2018 Telephone [facility] Gagandeep Hinojosa MD Lab Questions 1415 [facility] . [address] [place] [address] [place] [address] [phone] (Wo rk) Social History Tobacco Use Types [...] on filedocumented in this encounter Care Teams Rig Mechanic Relationship Specialty Start Date End Date Gagandeep Hinojosa MD PCP - General 05/17/[address] [place], [place] [address]K[place] [address] Vane Zarate Psychiatrist Psychiatry 03/22/12 [facility] Health Psychotherapist 08/04/17 [facility] Daycare Teacher 09/13/17 documented as of this encounter
--- OUTSIDE RECORDS SUMMARY | 2022-02-14 14:57 | XMS_ITS | Encounter Summary ---
:1970 Author Organization [employer] Address [address] [place] [address] Care Team Providers Name Role Phone Gagandeep Hinojosa MD Primary Care Provider Reason for Visit Reason Comments Patient Calling Back insulin regular (NOVOLIN R) 100 UNIT/ML injection Medication Questions Encounter Details Date Type Department Care Team Description 08/07/2018 Telephone [facility] Gagandeep Hinojosa, Anastasia nt Calling Back Medicine MD (insulin regular [address] (NOVOLIN R) 100 UNIT/[place] [address] [place] [address] injection); Medication [phone] (Wo rk) Questions Social History Tobacco Use [...] Novolin R. Clinician Next Step: Route to [place] Nurse pool to follow up Specific Request(s): [...] [place] [phone] if before 3pm or then triage Gagandeep Hinojosa MD - 08/08/2018 10:07 PM CDT Please contact patient. Document in medication list his current dose of regular insulin and route results back to me Dominique Hill - 08/07/2018 4:27 PM CDT Clinician Action: Input needed regarding Medication Clinician Next Step: Route to Grinder Set Up Operator External pool Specific Request(s): 1. See below information [...] Sliding Scale +1 unit/50 >150 Kenneth PH: [phone] documented in this encounter Plan of Treatment Not on filedocumented as of this encounter Visit Diagnoses Diagnosis Uncontrolled type 2 diabetes mellitus wi th complication, with long-term current use of insulin documented in this encounter Care Teams Polisher Aluminum Relationship Specialty Start Date End Date Gagandeep Hinojosa MD PCP - General 05/17/12 1415 [facility] [place] Ger[place] [address] Vane Zarate Psychiatrist Psychiatry 03/22/12 [facility] Psychotherapist 08/04/17 [facility] Theatrical Dresser 09/13/17 documented as of this encounter
--- OUTSIDE RECORDS SUMMARY | 2022-02-14 14:57 | XMS_ITS | Encounter Summary ---
:1970 Author Organization [employer] Address [address] [place] [address] Care Team Providers Name Role Phone Gagandeep Michaud MD Primary Care Provider Reason for Visit Reason Comments Refill metFORMIN (GLUCOPHAGE) 500 M G tablet [Pharmacy Med Name: METFORMIN 500MG TAB] Encounter Details Date Type Department Care Team Description 09/28/2018 Refill [facility] Gagandeep Michaud, Refrose mary l (metFORMIN Medicine MD (GLUCOPHAGE) [address] tablet [[place] [address] [place] [address] Name: METFORMIN 500MG [phone] (Wo rk) TAB]) Social History Tobacco Use [...] MOUTH TWICE DAILY WITH MEALS Interface, Out [employer] Query - 09/28/2018 9:45 AM CDT metFORMIN [...] : 10.9 % on 07/27/2018 Powered by [employer], Reference: [id number], 09/28/2018 9:45:25 AM CDT, Pool: MANUEL MOORE ([id number]) documented in this encounter Plan of Treatment Not on filedocumented as of this encounter Visit Diagnoses Diagnosis Uncontrolled type 2 diabetes mellitus wi thout complication, without long-term current use of insulin documented in this encounter Care Teams Intake Worker Relationship Specialty Start Date End Date Gagadneep Michaud MD PCP - General 1/23/13 1415 [facility] Marlena SERRAKATIANA SAWYER [address] Vane Zarate Psychiatrist Psychiatry 03/22/12 [facility] Mental Health Psychotherapist 08/04/17 [facility] Research Administrator 09/13/17 documented as of this encounter
--- OUTSIDE RECORDS SUMMARY | 2022-02-14 14:57 | XMS_ITS | Encounter Summary ---
:1970 Author Organization [employer] Address [address] [place] [address] Care Team Providers Name Role Phone Gagandeep Hinojosa MD Primary Care Provider Reason for Visit Reason Comments Back Pain Lower left back Pain X 1 day Encounter Details Date Type Department Care Team Description 10/13/2018 Office Visit [facility] Gagandeep Hinojosa ft-sided low back pain without sciatica (Primary Dx); Romario Rubio MD Marital conflict [facility]15 [facility] . [address] [place] [address] Ave [phone] [place] [id number] Social History Tobacco Use Types Packs/Day Years [...] Note: Anemia, unspecified ??? Microalbuminuria 02/04/2012 ??? DC, old 09/16/2011 ??? History of PTCA 09/16/2011 [...] disorder (HRC) 09/15/2005 Overview Note: LW Onset: [id number] ; Bipolar I Dis FAMILY HISTORY OR [...] CAPSULE BY MOUTH EVERY DAY 0 ??? Pinnacle Carbonate 600 MG capsule Take 600 mg [...] 1 Tablet by mouth. 01/16/2018: [facility] Sig: [...] unspecified documented in this encounter Care Teams Art Sales Consultant Relationship Specialty Start Date End Date Gagandeep Hinojosa MD PCP - General 05/17/12 [facility] [place] [address] Vane Zarate Psychiatrist Psychiatry 03/22/12 [facility] Mental Health Psychotherapist 08/04/17 [facility] Dike Supervisor 09/13/17 documented as of this encounter
--- OUTSIDE RECORDS SUMMARY | 2022-02-14 14:57 | XMS_ITS | Encounter Summary ---
:1970 Author Organization [employer] Address [address] [place] [address] Care Team Providers Name Role Phone Gagandeep Hinojosa MD Primary Care Provider Reason for Visit Reason Comments HYPERGLYCEMIA Encounter Details Date Type Department Care Team Description 12/09/2018 Nurse Triage [facility] Gagandeep Hinojosa MD HYPERGLYCEMIA [address] [place] [address] [phone] Social History Tobacco Use Types Packs/Day Years [...] speech) Protocols used: DIABETES - HIGH BLOOD [id number] Pt is calling to report that his [...] drive him to [facility] now. PNNL called pts to confirm this [...] on filedocumented in this encounter Care Teams Waste Reduction Coordinator Relationship Specialty Start Date End Date Gagandeep Hinojosa MD PCP - General 05/17/12 [facility] [place] [address] Vane Zarate Psychiatrist Psychiatry 03/22/12 [facility] Health Psychotherapist 08/04/17 [facility] Gas Engine Repairer 09/13/17 documented as of this encounter
--- OUTSIDE RECORDS SUMMARY | 2022-02-14 14:57 | XMS_ITS | Encounter Summary ---
:1970 Author Organization [employer] Address [address] [address] Care Team Providers Name Role Phone Gagandeep Hinojosa MD Primary Care Provider Reason for Visit Reason Comments DIABETES EDUCATION Encounter Details Date Type Department Care Team Description 08/01/2018 Care Coord Office Judy Luke RN DIABETES EDUCATION Visit Medicine [address] . [place] Gerber [address] [place] [phone] [address] Social History Tobacco Use Types Packs/Day Years [...] RN - 08/01/2018 1:00 PM CDT RN Mangle Roll Operator Visit Pt: Timurcole Krishnamurthy Referred by: Gagandeep [...] work since he left hisjob at the [employer] last summer. Rustam reports he has been connected with [employer], a resource provided by his therapist, that [...] Finance, Emotional and Transportation. BG Goals: Health Residential Lab Goal <7 Pre-meal: 70-130 mg/dL PPG: [...] SMBG tid as directed, record readings. RN Mangle Roll Operator as needed for questions. Scheduled follow up [...] insulin documented in this encounter Care Teams Accounting Specialist Relationship Specialty Start Date End Date Gagandeep Hinojosa MD PCP - General 05/17/12 1415 [facility] [place] [address] Vane Zarate Psychiatrsamantha Psychiatry 03/22/12 [facility] Mental [facility] Psychotherapist 08/04/17 [facility] Stop Attacher 09/13/17 documented as of this encounter
--- OUTSIDE RECORDS SUMMARY | 2022-02-14 14:57 | XMS_ITS | Encounter Summary ---
:1970 Author Organization [employer] Address [address], [place] [address] Care Team Providers Name Role Phone Gagandeep Hinojosa MD Primary Care Provider Reason for Visit Reason Comments Patient Care Coordination Encounter Details Date Type Department Care Team Description 10/16/2018 Care Coord [place] [facility] Deborah Rodrigues Patien t Care Phone Medicine [facility] Coordination [address] [place] [address] [place] [address] [phone] Social History Tobacco Use Types Packs/Day Years [...] are going. His phone went straight to [place], so I left a detailed [place]. [place] [phone] if he calls the clinic. documented in this encounter Plan of Treatment Not on filedocumented as of this encounter Visit Diagnoses Diagnosis Health skilled nursing, active care coordinati on - Primary documented in this encounter Care Teams Telecommunications Clerk Relationship Specialty Start Date End Date Gagandeep Hinojosa MD PCP - General 05/17/12 1645 [facility] [place] Ger[place] [address] Vane Zarate Psychiatrist Psychiatry 03/22/12 [facility] Psychotherapist 08/04/17 [facility] Theatrical Performer 09/13/17 documented as of this encounter
--- OUTSIDE RECORDS SUMMARY | 2022-02-14 14:57 | XMS_ITS | Encounter Summary ---
:1970 Author Organization [employer] Address [address] [place] [address] Care Team Providers Name Role Phone Gagandeep Hinojosa MD Primary Care Provider Reason for Visit Reason Comments QUESTIONS, GENERAL Encounter Details Date Type Department Care Team Description 12/17/2018 Telephone [facility] Gagandeep Hinojosa, QUESTIONS, GENERAL [address] [facility] [address] [place] [address] [place], [place] [address] (Wo rk) Social History Tobacco Use Types [...] appt is tomorrow. Confirmed 11:20 am at [facility] documented in this encounter Plan of Treatment Not on filedocumented as of this encounter Visit Diagnoses Not on filedocumented in this encounter Care Teams Ice Grinder Relationship Specialty Start Date End Date Gagandeep Hinojosa MD PCP - General 05/17/12 1415 [facility] Marlena [place]QUE[place]IANA [address] Vane Zarate Psychiatrist Psychiatry 03/22/12 [facility] Mental Health Psychotherapist 08/04/17 [facility] Pie Chef 09/13/17 documented as of this encounter
--- OUTSIDE RECORDS SUMMARY | 2022-02-14 14:57 | XMS_ITS | Encounter Summary ---
:1970 Author Organization [employer] Address [address], [place] [address] Care Team Providers Name Role Phone Gagandeep Hinojosa MD Primary Care Provider Reason for Visit Reason Comments Patient Care Coordination Encounter Details Date Type Department Care Team Description 12/07/2018 Care Coord [place] [facility] Deborah Rodrigues Patien t Care Phone Medicine [facility] Coordination [address] [place] [address] [place] [address] [place] [address] [place] [address] [phone] Social History Tobacco Use Types Packs/Day Years [...] [place]. [place] [phone] if he calls the clinic. documented in this encounter Plan of Treatment Not on filedocumented as of this encounter Visit Diagnoses Diagnosis [facility], active care coordinati on - Primary documented in this encounter Care Teams Clinical Services Director Relationship Specialty Start Date End Date Gagandeep Hinojosa MD PCP - General 05/17/12 6615 [facility] [place] [address] Vane Zarate Psychiatrist Psychiatry 03/22/12 [facility] Psychotherapist 08/04/17 [facility] Healthcare Educator 09/13/17 documented as of this encounter
--- OUTSIDE RECORDS SUMMARY | 2022-02-14 14:57 | XMS_ITS | Encounter Summary ---
:1970 Author Organization [employer] Address [address], [place] [address] Care Team Providers Name Role Phone Gagandeep Hinojosa MD Primary Care Provider Reason for Visit Reason Comments Pharmacy Encounter Details Date Type Department Care Team Description 08/02/2018 [facility]phone [facility] Gagandeep Hinojosa MD Pharmacy 1415 [facility] . 1415 [place] [address] [place] [address] [phone] (Wo rk) Social History Tobacco Use Types [...] on filedocumented in this encounter Care Teams Criminal Analyst Relationship Specialty Start Date End Date Gagandeep Hinojosa MD PCP - General 05/17/12 [facility] [place] [address] Vane Zarate Psychiatrist Psychiatry 03/22/12 [facility] Psychotherapist 08/04/17 [facility] Rn Field Case Manager 09/13/17 documented as of this encounter
--- OUTSIDE RECORDS SUMMARY | 2022-02-14 14:57 | XMS_ITS | Encounter Summary ---
:1970 Author Organization [employer] Address [address] [address] Care Team Providers Name Role Phone Gagandeep Michaud MD Primary Care Provider Reason for Visit Reason Onset Date Comments Refill 06/07/2018 amLODIPine (NORVASC) 10 MG tablet Encounter Details Date Type Department Care Team Description 06/07/2018 Refill [facility] Gagandeep Michaud, Refil l (amLODIPine Medicine (NORVASC) 10 MG tablet) 1415 [facility] . [address]15 [place] [address] [place], [place] [address] (Wo rk) Social History Tobacco Use Types [...] mouth two times a day with meals. EL LOADER Interface, Out Surescripts Prov Query - 06/07/2018 [...] : 8 % on 01/19/2018 Powered by Teak, Reference: [id number], 06/07/2018 3:36:01 PM BARREL LOADER, Pool: MANUEL REFILL ([id number]) EL LOADER documented in this encounter Plan of Treatment Not on filedocumented as of this encounter Visit Diagnoses Diagnosis Uncontrolled type 2 diabetes mellitus wi thout complication, without long-term current use of insulin documented in this encounter Care Teams Vacation Guide Relationship Specialty Start Date End Date Gagandeep Michaud MD PCP - General 05/17/12 [address] [place] [address] Vane Zarate Psychiatrist Psychiatry 03/22/12 [facility] Mental Health Psychotherapist 08/04/17 [facility] Publishing Specialist 09/13/17 documented as of this encounter
--- OUTSIDE RECORDS SUMMARY | 2022-02-14 14:57 | XMS_ITS | Encounter Summary ---
:1970 Author Organization [employer] Address [address] [place] [address] Care Team Providers Name Role Phone Gagandeep Michaud MD Primary Care Provider Reason for Visit Reason Onset Date Comments Refill 03/07/2018 blood glucose (ONE T OUCH ULTRA BLUE) test strip Encounter Details Date Type Department Care Team Description 03/07/2018 Refill [place] [facility] Gagandeep Michaud, Refil l (blood glucose Medicine (ONE TOUCH ULTRA BLUE) [address] [facility] test strip) [place] [address] [place] [address] (Wo rk) Social History Tobacco Use Types [...] on insurance. ICD-10: E11.29, E11.65, R80.9, Z79.4 ATION OFFICER Interface, Out Citelighter Prov Query - 03/07/2018 3:33 PM CST [...] MICHAUD) Next scheduled visit: None Powered by [employer], Reference: [id number], 03/07/2018 3:33:19 PM PROBATION OFFICER, Pool: MANUEL REFILL ([id number]) ATION OFFICER documented in this encounter Plan of Treatment Not on filedocumented as of this encounter Visit Diagnoses Diagnosis Uncontrolled type 2 diabetes mellitus wi th microalbuminuria, with long-term current use of insulin documented in this encounter Care Teams Perlite Grinder Relationship Specialty Start Date End Date Gagandeep Michaud MD PCP - General 05/17/12 7075 [facility] [place] Ger[place] [address] Vane Zarate Psychiatrist Psychiatry 03/22/12 [facility] Psychotherapist 08/04/17 [facility] Copyright Manager 09/13/17 documented as of this encounter
--- OUTSIDE RECORDS SUMMARY | 2022-02-14 14:57 | XMS_ITS | Encounter Summary ---
:1970 Author Organization [employer] Address [address] [place] [address] Care Team Providers Name Role Phone Gagandeep Hinojosa MD Primary Care Provider Reason for Visit Reason Comments [facility] Face To Face Visit Encounter Details Date Type Department Care Team Description 01/26/2018 Care Coord Judy Luke RN [facility] Face To Face Office Visit Medicine 1415 [facility] Visit [address] [place] [address] [phone] Social History Tobacco Use Types Packs/Day Years [...] RN - 01/26/2018 10:00 AM CDT RN Channeling Machine Runner Visit Pt: Timur Krishnamurthy Referred by: Gagandeep [...] Finance, Emotional and Transportation. BG Goals: Health [facility] Lab Goal <7 Pre-meal: 70-130 mg/dL PPG: [...] SMBG qid as directed, record readings. RN Channeling Machine Runner as needed for questions. Scheduled follow up on 02/08/18, bring BG readings. Rustam to call if symptoms of hypoglycemia or readings < 70 mg/dL. Rustam verbalized understanding and agreed with plan of care and follow up. documented in this encounter Plan of Treatment Not on filedocumented as of this encounter Visit Diagnoses Diagnosis Health shelter, active care coordinati on - Primary Uncontrolled type 2 diabetes mellitus wi th complication, with long-term current use of insulin documented in this encounter Care Teams Salesforce Trainer Relationship Specialty Start Date End Date Gagandeep Hinojosa MD PCP - General 05/17/12 [address]15 [place] [address] Vane Zarate Psychiatrsamantha Psychiatry 03/22/12 [facility] Psychotherapist 08/04/17 [facility] Parking Supervisor 09/13/17 documented as of this encounter
--- OUTSIDE RECORDS SUMMARY | 2022-02-14 14:57 | XMS_ITS | Encounter Summary ---
:1970 Author Organization [employer] Address [address] [place] [address] Care Team Providers Name Role Phone Gagandeep Michaud MD Primary Care Provider Reason for Visit Reason Comments Refill amLODIPine (NORVASC) 10 MG t ablet [Pharmacy Med Name: AMLODIPINE 10MG TAB] Encounter Details Date Type Department Care Team Description 09/28/2018 Refill Gagandeep Storm Refil l (amLODIPine Medicine (NORVASC) 10 MG tablet [address] [Pharmacy Med Name: [place] [address] [place] [address] AMLODIPINE 10MG TAB]) [phone] (Wo rk) Social History Tobacco Use Types [...] 81 mm Hg on 08/07/2018 Powered by [employer]ambler[employer], Reference: [id number], 09/28/2018 9:45:25 AM CDT, Pool: MANUEL LANDAILL ([id number]) documented in this encounter Plan of Treatment Not on filedocumented as of this encounter Visit Diagnoses Diagnosis Essential hypertension (HRC) Unspecified essential hypertension Uncontrolled type 2 diabetes mellitus wi thout complication, without long-term current use of insulin documented in this encounter Care Teams Claims Analyst Relationship Specialty Start Date End Date Gagandeep Michaud MD PCP - General 05/17/[address] [facility] [place] [address] Vane Zarate Psychiatrist Psychiatry 03/22/12 [facility] Mental Health Psychotherapist 08/04/17 [facility] Sourcing Assistant 09/13/17 documented as of this encounter
--- OUTSIDE RECORDS SUMMARY | 2022-02-14 14:57 | XMS_ITS | Encounter Summary ---
:1970 Author Organization [facility] Address [address], [place] [address] Care Team Providers Name Role Phone Gagandeep Hinojosa MD Primary Care Provider Reason for Visit Reason Comments APPOINTMENT REQUEST Encounter Details Date Type Department Care Team Description 07/27/2018 Care Coord Phone Judy Luke R N APPOINTMENT REQUEST [facility] 1415 [facility] [address] [place] [address] . [place] Hernandez [address] [place] V[place]QUEZ [phone] [address] Social History Tobacco Use Types Packs/Day Years [...] Hinojosa: ?CARE COORDINATION - PRIMARY CARE CON* [#[id number]] ?Priority: Routine ??Class: [facility] Location ?Comment:New injectables vs [employer] ?Associated Diagnoses ?E11.65 Uncontrolled type 2 diabetes mellitus with hyperglycemia (HRC) ?Reason for referral? -> Difficulty managing conditions, treatments, or ? medications To Scheduling, please assist with appt. documented in this encounter Plan of Treatment Not on filedocumented as of this encounter Visit Diagnoses Not on filedocumented in this encounter Care Teams Ultra Sound Technician Relationship Specialty Start Date End Date Gagandeep Hinojosa MD PCP - General 05/17/[address] [place], [place] [address]K[place] Rodriguez [address] Vane Zarate Psychiatrist Psychiatry 03/22/12 [facility] Psychotherapist 08/04/17 [facility] Pet Handler 09/13/17 documented as of this encounter
[2022-02-14 14:58] LABS: D Dimer Quantitative* 1.12 ug/ml (0.00-0.50)
--- OUTSIDE RECORDS SUMMARY | 2022-02-14 14:58 | XMS_ITS | Encounter Summary ---
:1970 Author Organization [facility] Address [address] [place] [address] Care Team Providers Name Role Phone Gagandeep Hinojosa MD Primary Care Provider Reason for Visit Reason Comments HC Face To Face Visit Encounter Details Date Type Department Care Team Description 07/19/2017 Care Coord Judy Luke RN [facility] Face To Face Office Visit Medicine 1415 [facility] Visit [address] [place] [address] Social History Tobacco Use Types Packs/Day Years [...] RN - 07/19/2017 9:00 AM CDT RN Senior Corporate Accountant Visit Pt: Timur Krishnamurthy Referred by: Gagandeep [...] Mental Health Rustam continues to see his [facility] therapist every Tuesday and notes he is [...] he is not working with the telephonic sales coach anymore, he's not sure what happened. [...] jail, active care coordinati on - Primary Uncontrolled type 2 diabetes mellitus wi th microalbuminuria, with long-term current use of insulin Bipolar I disorder (HRC) Bipolar I disorder, most recent episode (or current) unspecified documented in this encounter Care Teams Student Development Specialist Relationship Specialty Start Date End Date Gagandeep Hinojosa MD PCP - General 05/17/12 [facility]5 [facility] [place] [address] Vane Zarate Psychiatrist Psychiatry 03/22/12 documented as of this encounter
--- OUTSIDE RECORDS SUMMARY | 2022-02-14 14:58 | XMS_ITS | Encounter Summary ---
:1970 Author Organization [facility] Address [address] [address] Care Team Providers Name Role Phone Gagandeep Hinojosa MD Primary Care Provider Reason for Visit Reason Comments [facility] Phone Visit Encounter Details Date Type Department Care Team Description 11/11/2017 Care Coord Phone [facility] Deborah Rodrigues, [facility] Phone Visit Medicine [facility] 1415 [facility] . [address]15 [place] [address] [place] [address] [phone] Social History Tobacco Use Types Packs/Day Years Used Date Smoking Tobacco: Every Day Cigarettes 1 25 Smokeless Tobacco: Former Qu it: 10/25/2012 Comments: Smoking History Packs/day: Alcohol Use Standard Drinks/Week Comments No 0 (1 standard drink = 0.6 oz pure Alcoho lic Drinks/day: Amount:0; alcohol) Freq:Never; Sex Assigned at Date Recorded Not on file documented as of this encounter Progress Notes Deborah Rodrigues, [facility] - 11/11/2017 8:46 AM CDT Flexographic Press Plate Setter - Phone Call Contact with: Rustam Reason [...] Rodrigues LICSW - 11/11/2017 8:45 AM CDT Flexographic Press Plate Setter - Phone Call Contact with: Rustam Reason [...] Primary documented in this encounter Care Teams Neonatal Social Worker Relationship Specialty Start Date End Date Gagandeep Hinojosa MD PCP - General 05/17/12 1415 [facility] [place] [address] Vane Zarate Psychiatrist Psychiatry 03/22/12 [facility] Mental Health Psychotherapist 08/04/17 [facility] Needle Process Felt Goods Supervisor 09/13/17 documented as of this encounter
--- OUTSIDE RECORDS SUMMARY | 2022-02-14 14:58 | XMS_ITS | Encounter Summary ---
:1970 Author Organization [facility] Address [address] [place] [address] Care Team Providers Name Role Phone Gagandeep Hinojosa MD Primary Care Provider Reason for Visit Reason Comments HC Face To Face Visit Encounter Details Date Type Department Care Team Description 06/20/2017 Care Coord Judy Luke RN [facility] Face To Face Office Visit Medicine 1415 [facility] Visit [address] [place] [address] Social History Tobacco Use Types Packs/Day Years [...] RN - 06/20/2017 1:00 PM CST RN Machine Boss Visit Pt: Timur Krishnamurthy Referred by: Gagandeep [...] of 8:00-4:00, 3 days a week, in [place]. I reminded Rustam that he needs hayley [...] supplemental insurance and pays the remaining 20% hdc-fu-caqdcy, using his spouse's HSA. I previously recommended [...] he is periodically walking at the [facility] [employer] 2-3 times a week. He wants to do more, but has struggled. I reminded Rustam of the importance of physical activity with glucose control. Smoking Cessation Rustam smells strongly of cigarette smoke again. He reports he continues to work with a telephonic motorcoach driver on smoking cessation. He is happy to [...] identified: Finance and Emotional. BG Goals: Health Alf Lab Goal <7 Pre-meal: 70-130 mg/dL PPG: [...] choices per meal. Continue to work with motorcoach driver to decrease the number of cigarettes smoked per day. Research supplemental insurance coverage with spouse's HR. Follow up scheduled on 07/12/17, bring readings. Rustam to call if symptoms of hypoglycemia or readings < 70 mg/dL. Rustam verbalized understanding and agreed with plan of care and follow up. R UP documented in this encounter Plan of Treatment Not on filedocumented as of this encounter Visit Diagnoses Diagnosis Health custodial, active care coordinati on - Primary Uncontrolled type 2 diabetes mellitus wi th hyperglycemia, with long-term current use of insulin (HRC) Bipolar I disorder (HRC) Bipolar I disorder, most recent episode (or current) unspecified documented in this encounter Care Teams Tube Drawing Supervisor Relationship Specialty Start Date End Date Gagandeep Hinojosa MD PCP - General 05/17/12 [address] [place] [address] Vane Zarate Psychiatrist Psychiatry 03/22/12 documented as of this encounter
--- OUTSIDE RECORDS SUMMARY | 2022-02-14 14:58 | XMS_ITS | Encounter Summary ---
:1970 Author Organization [facility] Address [address] [place] [address] Care Team Providers Name Role Phone Gagandeep Hinojosa MD Primary Care Provider Reason for Referral Consult/Transfer Care (Routine) - Closed Specialty Diagnoses / Procedures Referred By Contact Refer red To Contact Diagnoses Toenail fungus Type 2 diabetes mellitus with left diabetic foot ulcer (HRC) Gagandeep Hinojosa MD [facility] MED CN[facility] OUTP [address] [facility] [address] [place] [address] [place] [address] Referral ID Status Reason Start Date Expiration Date Visits Requ ested Visits Authorized [id number] Closed 08/18/2017 02/14/2018 1 1 Scheduling Instructions [...] Face To Face Office Visit Medicine 1415 [facility] Visit [address] [place] [address] [...] He agrees to the foot/nail care at [facility]. Order faxed to Khoa at [phone]. Judy Pittman RN - 08/18/2017 9:00 AM CDT RN Treating Plant Supervisor Visit Pt: Timur Krishnamurthy Referred by: [...] revved up. Rustam continues to see his [facility] therapist every Tuesday and notes he doing [...] place including monthly psychiatry, weekly therapy, weekly [facility], and [facility] walk-in every Tuesday. Rustam previously worked with Case Management through [facility] and we called [facility] together during our last visit. He states he has not connected with [facility] since, so he agrees to stop by and pickling solution maker the application after our visit today. Rustam understands that his mental healthis his top priority at this time, so we won't be making any significant changes to his treatment plan until he is feeling more stable. Because of the complexity of Rustam's mental health, I suggested including Lesly Rodrigues, [facility] Treating Plant Supervisor in our visits for additional support. Rustam [...] Rustam states he met with an insurance job titles last week and has decided to apply [...] for his insulin and go back to [facility]. I stressed the importance of not making [...] at work, but not walking at the [employer] anymore.He is interested in trying basketball. Rustam [...] Since then, Rustam was seen at the [facility] ED last Tuesday and dx with cellulitis, he continues to take antibiotics, and states he is feeling better. Rustam is not wearing the walking boot because he states they told him not to. However, he notes his toenails are long and sharp, needing to be trimmed. We discussed the importance offoot/nail care and I recommended he see Khoa at [facility] because of his DM, foot ulcer, [...] identified: Finance and Emotional. BG Goals: Health Jail Lab Goal <7 [...] appt scheduled on 08/25/17. Complete paperwork for [facility] Showroom Sales Assistant today. Send email to Dr Huff about [...] specified manifestations, not stated as uncontrolled Health long-term, active care coordinati on Type 2 diabetes mellitus with microalbum inuria, with long-term current use of insulin (HRC) Bipolar I disorder (HRC) Bipolar I disorder, most recent episode (or current) unspecified documented in this encounter Care Teams Clinical Case Manager Relationship Specialty Start Date End Date Gagandepe Hinojosa MD PCP - General 05/17/12 [facility]5 [facility] [place] [address] Vane Zarate Psychiatrist Psychiatry 03/22/12 [facility] Mental Health Psychotherapist 08/04/17 documented as of this encounter
--- OUTSIDE RECORDS SUMMARY | 2022-02-14 14:58 | XMS_ITS | Encounter Summary ---
:1970 Author Organization [employer] Address [address] [place] [address] Care Team Providers Name Role Phone Gagandeep Hinojosa MD Primary Care Provider Reason for Visit Reason Comments SKIN,DRY on hands Encounter Details Date Type Department Care Team Description 06/03/2017 Office Visit [facility] Gagandeep Hinojosa Dermatit is (Primary Medicine FMD Dx) 1415 [facility] . [address] [place] [address] Ave [phone] [place], [place] [address] Social History Tobacco Use [...] Comments Blood Pressure 122/84 06/03/2017 9:56 AM POULTRY SEXER Pulse - - Temperature - - Respiratory Rate - - Oxygen Saturation - - Inhaled Oxygen Concentration - - Weight 101.2 kg (223 lb) 06/03/2017 9:56 AM POULTRY SEXER Height - - Body Mass Index 32 04/05/2017 3:18 PM POULTRY SEXER documented in this encounter Progress Notes Gagandeep [...] List Diagnosis Date Noted ??? Tobacco abuse ([facility]) 02/24/2016 ??? Tinea versicolor 07/18/2015 ??? Tobacco use disorder ([facility]) 10/26/2012 ??? Anemia 05/02/2012 Overview Note: Anemia, unspecified ??? Health detention, active care coordination 03/22/2012 Overview Note: Email Marketing Manager: JOSETTE Yip [phone] Care coordination focus: T2DM, financial resources Living situation: lives with spouse Important notes: SSDI, significant insulin resistance, uses Relion insulin, commonly reaches Medicare Coverage Gap See care plan under Chart Review > [facility] Reports > AMB [facility] CARE PLAN REPORT ??? Microalbuminuria 02/04/2012 ??? AL, old ([facility]) 09/16/2011 ??? History of PTCA 09/16/2011 Overview Note: History of PTCA 04/2011 BMS RCA ??? Obesity, Class I, BMI 30-34.9 ([facility]) 09/16/2011 Overview Note: Body mass index is 31.16 kg/(m^2). ??? Hyperlipidemia with target LDL less than 70 ([facility]) 06/08/2011 Overview Note: Hyperlipidemia LDL goal < 70 ??? ASHD (arteriosclerotic heart disease) ([facility]) 05/04/2011 ??? Erectile dysfunction 01/22/2011 Overview Note: side effect Risperdal ??? Type 2 diabetes mellitus, uncontrolled ([facility]) 12/11/2010 Overview Note: Type II or unspecified type diabetes mellitus without mention of complication, uncontrolled ([facility]) ??? Dermatophytosis of body 09/04/2010 Class: Historical Overview Note: Tinea Corporis ??? Coronary atherosclerosis ([facility]) 12/22/2009 Overview Note: LW Modifier: mod RCA, negative nuclear stress test ; CAD ??? Nonspecific abnormal results of liver function study 12/22/2009 Overview Note: Liver Function Tests Abnormal ??? Bipolar I disorder ([facility]) 09/15/2005 Overview Note: LW Onset: ; [...] ofVaseline or Eucerin. Follow-up: If not improved TRY SEXER documented in this encounter Plan of Treatment Not on filedocumented as of this encounter Visit Diagnoses Diagnosis Dermatitis - Primary Contact dermatitis and other eczema, due to unspecified cause documented in this encounter Care Teams Bed Control Specialist Relationship Specialty Start Date End Date Gagandeep Hinojosa MD PCP - General 05/17/[address] [place], [place] [address] [address] Vane Zarate Psychiatrist Psychiatry 03/22/12 documented as of this encounter
--- OUTSIDE RECORDS SUMMARY | 2022-02-14 14:58 | XMS_ITS | Encounter Summary ---
:1970 Author Organization [facility] Address [address], [place] [address] Care Team Providers Name Role Phone Gagandeep Hinojosa MD Primary Care Provider Reason for Referral Consult/Transfer Care (Routine) - Closed Specialty Diagnoses / Procedures Referred By Contact Refer red To Contact Diagnoses Diabetic ulcer of left midfoot associated with type 2 diabetes mellitus, limited to breakdown of skin (HRC) Gagandeep Hinojosa MD [address] [facility] [place] [address] Referral ID Status Reason Start Date Expiration Date Visits Requ ested Visits Authorized [id number] Closed 08/15/2017 11/14/2018 1 1 Scheduling Instructions Your provider has recommended an appoint ment with [facility]. You may call [phone] to sc hedule your appointment. If you [...] Dx); Romario Rubio MD Essential hypertension; [address] [place] [address] [facility] Bipolar I disorder (HRC); Ave. 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 Essential hypertension ([facility]) I10 metoprolol succinate (TOPROL XL) 50 MG 24 hour release tablet Electrolyte Panel Creatinine / GFR 3. Bipolar I disorder ([facility]) F31.9 4. Diabetic ulcer of left midfoot associated with type 2 diabetes mellitus, limited to breakdown of skin ([facility]) E11.621 Foot & Ankle/Podiatry Consult-Adult/Peds L97.421 5. Type 2 diabetes mellitus with diabetic polyneuropathy, without long-term current use of insulin ([facility]) E11.42 POCT Glycosylated Hemoglobin (HB A1C) Microalb/Creat Ratio Lipid Panel and Direct LDL(If Needed) 6. Type II diabetes mellitus with neurological manifestations ([facility]) E11.49 7. Tobacco use disorder ([facility]) F17.200 PLAN: 1. Podiatry referral, he [...] Hemoglobin (HB A1C) (08/15/2017 8:43 AM CDT) [facility] gist Method Time Signature Glycosolated HGB [...] - 08/15/2017 8:55 AM CDT Performed at [address] [address] CLIA number [id number] Gagandeep Hinojosa MD LAB_1 Performing Organization Address City/State/ZIP Code Phon e Number PN SOFT [address] [place] [address] [phone] documented in this encounter Visit Diagnoses Diagnosis [...] insulin documented in this encounter Care Teams Medical Scientific Officer Relationship Specialty Start Date End Date Gagandeep Hinojosa MD PCP - General 05/17/[address] [place] [address] [place] [address] Vane Zarate Psychiatrist Psychiatry 03/22/12 [facility] Mental [facility] Psychotherapist 08/04/17 documented as of this encounter
--- OUTSIDE RECORDS SUMMARY | 2022-02-14 14:58 | XMS_ITS | Encounter Summary ---
:1970 Author Organization [facility] Address [address] [place] [address] Care Team Providers Name Role Phone Gagandeep Hinojosa MD Primary Care Provider Reason for Visit Reason Comments [facility] Face To Face Visit Encounter Details Date Type Department Care Team Description 09/01/2017 Care Coord Yaritza [facility] Deborah Rodrigues, [facility] Fa ce To Face Office Visit Medicine [facility] Visit [address] [facility] [place] [address] [place] [address] [phone] Social History Tobacco Use Types Packs/Day Years [...] Deborah Rodrigues, [facility] - 09/01/2017 11:00 AM CDT Care Coordination Visit Pt: Timur Krishnamurthy Referred by: Gagandeep Hinojosa MD Reason for visit: Care Coordination Timur was seen alone. Discussion/actions: Met with Rustam for joint appointment with RN Cokeman, Judy Pittman. She address his physicalhealth concerns [...] state again, and wants to work at [employer]. He has a follow-up psychiatric appointment in [...] thoughts of suicide. He is working at [employer], and is trying to make sure he maintains a good balance between work and home. Rustam has also been reducing his smoking, and has a quit date of 01/21, which she is really hoping to obtain. Rustam denied any other concerns at this time and schedule a follow-up [facility] appointment for next week. We willdiscuss [...] PLAN: -MH CM appointment 09/06 at 10:30. -[facility] appointment 09/09 at 11:00. Pt verbalized understanding and agreed with plan of care and follow up. documented in this encounter Miscellaneous Notes Assessment & Plan Note - Deborah Rodrigues LICSW - 09/01/2017 11:38 AM CDT Associated Problem(s): Health intermediate, active care coordination (Resolved 07/27/2018) Cokeman: ERLIN [place]as [phone] Care coordination focus: mental health Living situation: Lives with Important notes: [facility] case management starting documented in this encounter Plan of Treatment Not on filedocumented as of this encounter Visit Diagnoses Diagnosis Health intermediate, active care coordinati on - Primary documented in this encounter Care Teams Jig Worker Relationship Specialty Start Date End Date Gagandeep Hinojosa MD PCP - General 05/17/12 1415 [facility] [place] [address] Vane Zarate Psychiatrist Psychiatry 03/22/12 [facility] Mental Health Psychotherapist 08/04/17 documented as of this encounter
--- OUTSIDE RECORDS SUMMARY | 2022-02-14 14:58 | XMS_ITS | Encounter Summary ---
:1970 Author Organization [facility] Address [address] [place] [address] Care Team Providers Name Role Phone Gagandeep Hinojosa MD Primary Care Provider Reason for Visit Reason Comments Refill lisinopril (ZESTRIL) 10 MG t dirkt [Pharmacy Med Name: LISINOPRIL 10 MG TABLET] Encounter Details Date Type Department Care Team Description 12/05/2017 Refill Serge Daniels Refil l (lisinopril Medicine (ZESTRIL) 10 MG tablet [address] 14[address] [facility] [Pharmacy Med Name: [place] [address] [place] [address] LISINOPRIL 10 MG [phone] (Wo rk) TABLET]) Social History Tobacco Use [...] TABLET BY MOUTH EVERY DAY. Interface, Out [employer] Prov Query - 12/05/2017 9:54 PM CDT [...] K: 5 mEq/L on 04/29/2017 Powered by [employer], Reference: [id number], 12/05/2017 9:54:33 PM CDT, Pool: MANUEL REFILL ([id number]) documented in this encounter Plan of Treatment Not on filedocumented as of this encounter Visit Diagnoses Diagnosis Essential hypertension (HRC) Unspecified essential hypertension documented in this encounter Care Teams Architectural Engineer Relationship Specialty Start Date End Date Gagandeep Hinojosa MD PCP - General 05/17/12 [address] [place] [address] Vane Zarate Psychiatrist Psychiatry 03/22/12 [facility] Mental Health Psychotherapist 08/04/17 [facility] Orthodontic Lab Technician 09/13/17 documented as of this encounter
--- OUTSIDE RECORDS SUMMARY | 2022-02-14 14:58 | XMS_ITS | Encounter Summary ---
:1970 Author Organization [facility] Address [address], [place] [address] Care Team Providers Name Role Phone Gagandeep Hinojosa MD Primary Care Provider Reason for Visit Procedure/Equipment (Routine) - Incomplete Specialty Diagnoses / Procedures Referred By Contact Refer red To Contact Diagnoses Left foot pain Diabetic ulcer of left midfoot associated with type 2 diabetes mellitus, with muscle involvement without evidence of necrosis (HRC) Gagandeep Hinojosa MD Procedures XR Foot Lt 2 Views [address] [place] [address] Referral ID Status Reason Start Date Expiration Date Visits V isits Requested Authorized [id number] Incomplete 08/05/2017 11/04/2018 1 1 Encounter Details Date Type Department Care Team Description 08/05/2017 [facility] Gagandeep Hinojosa, Left foot pain; [address] Diabetic ulcer of left midfoot associate d with type 2 diabetes mellitus, with muscle involvement without evidence of necrosis ([place]) [place] [address] 1415 [facility] [phone] [place] [phone] (Wo rk) Social History Tobacco Use [...] (HRC) documented in this encounter Care Teams Bilingual Executive Assistant Relationship Specialty Start Date End Date Gagandeep Hinojosa MD PCP - General 05/17/12 [facility] [facility] [place] [address] Vane Zarate Psychiatrist Psychiatry 03/22/12 [facility] Psychotherapist 08/04/17 documented as of this encounter
--- OUTSIDE RECORDS SUMMARY | 2022-02-14 14:58 | XMS_ITS | Encounter Summary ---
:1970 Author Organization [employer] Address [address] [place] [address] Care Team Providers Name Role Phone Gagandeep Hinojosa MD Primary Care Provider Reason for Visit Reason Comments HC Face To Face Visit Encounter Details Date Type Department Care Team Description 06/06/2017 Care Coord Judy Luke RN [facility] Face To Face Office Visit Medicine 1415 [facility] Visit [address] [place] [phone] Social History Tobacco Use Types Packs/Day Years [...] RN - 06/06/2017 1:00 PM CST RN Prepress Technician Visit Pt: Timur Krishnamurthy Referred by: Gagandeep [...] supplemental insurance and pays the remaining 20% [id number], using his spouse's HSA. I highly recommended [...] DM complications. Using the Synopsis tab in [employer], I reviewed Rustam's A1c results since his [...] consumed. I stressed the importance of eatinga systems support officer lunch because he is not taking any insulin before the meal. Rustam states he can't start the day without a bagel, therefore I recommended he pair the bagel with a protein to help satisfy him lo nger, such as peanut butter, an egg, or cottage cheese. For lunch, Rustam could look to Scottish yogurt,a piece of fruit, or a salad [...] time. Previously, he was walking at the [facility] and states he would like [...] reports he is working with a telephonic cross country/track and field coach on smoking cessation. Rustam is very motivated [...] Therefore, I suggested Rustam talk with his cross country/track and field coach about postponing his quit date until his mental health has improved and he is able to stick to a plan of gradually reducing the number of cigarettes over several weeks. uRstam agreed. Follow-up Rustam reports he does best [...] and soda consumption. Continue to work with cross country/track and field coach to decrease the number of cigarettes smoked per day. Follow up scheduled on 06/20/17, bring readings. Rustam to call if symptoms of hypoglycemia or readings < 70 mg/dL. Rustam verbalized understanding and agreed with plan of care and follow up. LINE INSTALLER documented in this encounter Plan of Treatment Not on filedocumented as of this encounter Visit Diagnoses Diagnosis Health half-way, active care coordinati on - Primary Uncontrolled type 2 diabetes mellitus wi th hyperglycemia, with long-term current use of insulin (HRC) documented in this encounter Care Teams Department Helper Relationship Specialty Start Date End Date Gagandeep Hinojosa MD PCP - General 1/23/13 1415 [facility] [place] [address] Vane Zarate Psychiatrist Psychiatry 03/22/12 documented as of this encounter
--- OUTSIDE RECORDS SUMMARY | 2022-02-14 14:58 | XMS_ITS | Encounter Summary ---
:1970 Author Organization [employer] Address [address] [place] [address] Care Team Providers Name Role Phone Gagandeep Hinojosa MD Primary Care Provider Reason for Visit Reason Comments HC Face To Face Visit Encounter Details Date Type Department Care Team Description 01/12/2018 Care Coord Judy Luke RN [facility] Face To Face Office Visit Medicine 1415 [facility] Visit [address] [place] [address] Social History Tobacco Use Types Packs/Day Years [...] RN - 01/12/2018 10:00 AM CDT RN Vascular Neurologist Visit Pt: Timur Krishnamurthy Referred by: Gagandeep [...] is a joint visit with Lesly Rodrigues TRIAGE LICENSED PRACTICAL NURSE. He was hospitalized from 11/26-01/09 at [facility] for mental health and suicidal ideation. Rustam [...] assistance, Lesly and I recommended contacting his [facility] for assistance and resources. Rustam agreed. Medication [...] verify understanding. SHARED PLAN: Contact [facility] for assistance with medication and insurance resources. Continue current insulin regimen for now, use sliding scale as prescribed. Resume metformin 500 mg BID, gradually increase by 500 mg every 7 days up to 1,000 mg BID. SMBG qid as directed, record readings. HOSDC with Dr Hinojosa on 01/16/18. RN Vascular Neurologist as needed for questions. Scheduled follow up [...] unspecified documented in this encounter Care Teams Solar Fabrication Technician Relationship Specialty Start Date End Date Gagandeep Hinojosa MD PCP - General 05/17/12 1415 [facility] [place] [address] Vane Zarate Psychiatrist Psychiatry 03/22/12 [facility] Psychotherapist 08/04/17 [facility] 09/13/17 documented as of this encounter
--- OUTSIDE RECORDS SUMMARY | 2022-02-14 14:58 | XMS_ITS | Encounter Summary ---
:1970 Author Organization [employer] Address [address] [place] [address] Care Team Providers Name Role Phone Gagandeep Hinojosa MD Primary Care Provider Reason for Visit Reason Comments HC Face To Face Visit Encounter Details Date Type Department Care Team Description 09/22/2017 Care Coord Judy Luke RN [facility] Face To Face Office Visit Medicine 1415 [facility] Visit [address] [place] [address] Social History Tobacco Use Types Packs/Day Years [...] RN - 09/22/2017 10:00 AM CDT RN Airport Ramp Supervisor Visit Pt: Timur Krishnamurthy Referred by: [...] is a joint visit with ERLIN Salas Airport Ramp Supervisor. Both Lesly and Bucky noticed and commented that Rustam appears visibly more calm and less jittery today, he attributes this to cutting back on his caffeine consumption. Mental Health See note from ERLIN Salas Airport Ramp Supervisor for documentation. Insurance Rustam receives SSDI for [...] the meantime, Rustam has met with aninsurance ware tester plans to enroll in a supplemental Medicare [...] Rustam has not been walking at the [facility], he wants to start playing basketball again. However, he struggles with motivation. I reminded Rustam of the importance of physical activity with glucose control and reducing manic energy. Smoking Cessation See note from Lesly Rodrigues, [facility] Airport Ramp Supervisor for documentation. Swelling The swelling in Rustam's LE has improved significantly. He currently has +2 edema in his L lower extremity only. Rustam showed me his foot ulcer, which I noted is completely scabbed over, without any signs of infection at this time. He is scheduled to receive foot/nail care at [facility] tomorrow. I reminded Rustam of the importance [...] identified: Finance and Emotional. BG Goals: Health Prison Lab Goal <7 [...] PLAN: Refill of test strips sent to [facility] in [place]. Scheduled podiatry follow up appt on 10/06/17. [...] mcc, active care coordinati on - Primary Uncontrolled type 2 diabetes mellitus wi th microalbuminuria, with long-term current use of insulin documented in this encounter Care Teams Assistant Chief Of Police Relationship Specialty Start Date End Date Gagandeep Hinojosa MD PCP - General 05/17/[address] [place] [address] [place] [address] Vane Zarate Psychiatrist Psychiatry 03/22/12 [facility] Psychotherapist 08/04/17 [facility] Supervisor Liquefaction 09/13/17 documented as of this encounter
--- OUTSIDE RECORDS SUMMARY | 2022-02-14 14:58 | XMS_ITS | Encounter Summary ---
:1970 Author Organization [email or web address] Address [address] [place] [address] Care Team Providers Name Role Phone Gagandeep Hinojosa MD Primary Care Provider Reason for Visit Reason Comments HC Face To Face Visit Encounter Details Date Type Department Care Team Description 10/20/2017 Care Coord Judy Luke RN [facility] Face To Face Office Visit Medicine 1415 [facility] Visit [address] [place] [address] Social History Tobacco Use Types Packs/Day Years [...] RN - 10/20/2017 9:00 AM CDT RN Ditch Digger Visit Pt: Timur Krishnamurthy Referred by: Gagandeep [...] is a joint visit with Lesly Rodrigues [facility] Ditch Digger. Both Lesly and I noticed and commented that Rustam appears to be more relaxed this week, he is visibly morecalm and less jittery today. Rustam attributes this change to cutting back his caffeine consumption and the recent change in his medication. Mental Health See note from Lesly Rodrigues [facility] Ditch Digger for documentation. Medication I reviewed Rustam's medication [...] to work outor play basketball at the [facility], but it is free to walk around [...] prescription for diabetic shoes and inserts through [employer], he is excited to receive his first pair of [employer]. He also received foot care through [facility] and was advised to continue to go every 3 months. Smoking Cessation See note from Lesly Rodrigues, [facility] Ditch Digger for documentation. Swelling The swelling in Rustam's [...] care, active care coordinati on - Primary Type 2 diabetes mellitus with foot ulcer , with long-term current use of insulin (HRC) Bipolar I disorder (HRC) Bipolar I disorder, most recent episode (or current) unspecified documented in this encounter Care Teams Employment Consultant Relationship Specialty Start Date End Date Gagandeep Hinojosa MD PCP - General 05/17/[address] [place] [address] [place] [address] Vane Zarate Psychiatrist Psychiatry 03/22/12 [facility] Psychotherapist 08/04/17 [facility] Ballistics Professor 09/13/17 documented as of this encounter
--- OUTSIDE RECORDS SUMMARY | 2022-02-14 14:58 | XMS_ITS | Encounter Summary ---
:1970 Author Organization [employer] Address [address] [place] [address] Care Team Providers Name Role Phone Gagandeep Michaud MD Primary Care Provider Reason for Visit Reason Comments Refill atorvastatin (LIPITOR) 80 MG tablet [Pharmacy Med Name: ATORVASTATIN 80 MG TABLET] Encounter Details Date Type Department Care Team Description 07/28/2017 Refill Gagandeep Storm, Refil l (atorvastatin Medicine MD (LIPITOR) 80 MG tablet [address] 1415 [facility] [Pharmacy Med Name: Y[place] [address] [place] [address] ATORVASTATIN 80 MG [phone] (Wo rk) TABLET]) Social History Tobacco Use [...] TABLET BY MOUTH EVERY DAY Interface, Out hulu Prov Query - 07/28/2017 9:39 AM CDT [...] visit: 08/15/2017 (in Family Practice) Powered by [employer], Reference: [id number], 07/28/2017 9:39:43 AM CDT, Pool: MANUELNoni LANDAILL ([id number]) documented in this encounter Plan of Treatment Not on filedocumented as of this encounter Visit Diagnoses Diagnosis ASHD (arteriosclerotic heart disease) (H RC) Coronary atherosclerosis of unspecified type of vessel, confederated salish or graft Hyperlipidemia LDL goal < 70 Other and unspecified hyperlipidemia documented in this encounter Care Teams Cut Off Sawyer Log Relationship Specialty Start Date End Date Gagandeep Michaud MD PCP - General 05/17/[address] [place] [address] [place] [address] Vane Zarate Psychiatrist Psychiatry 03/22/12 documented as of this encounter
--- OUTSIDE RECORDS SUMMARY | 2022-02-14 14:58 | XMS_ITS | Encounter Summary ---
:1970 Author Organization [employer] Address [address], [place] [address] Care Team Providers Name Role Phone Gagandeep Hinojosa MD Primary Care Provider Encounter Details Date Type Department Care Team Description 01/16/2018 Lab Visit [facility] Hyponatremia 1415 [facility] [place], [place] [address] Social History Tobacco Use Types Packs/Day Years [...] - 01/16/2018 6:36 PM CDT Performed at [facility], [address] [place] [address] CLIA number [id number] Gagandeep iHnojosa MD LAB_1 Performing Organization Address City/State/ZIP Code Phon e Number PN SOFT [address] [place] [address] [phone] documented in this encounter Visit Diagnoses Diagnosis Hyponatremia Hyposmolality and/or hyponatremia documented in this encounter Care Teams Environmental Service Aide Relationship Specialty Start Date End Date Gagandeep Hinojosa MD PCP - General 05/17/12 1415 [place], [place] [address] Vane Zarate Psychiatrsamantha Psychiatry 03/22/12 [facility] Psychotherapist 08/04/17 [facility] Block Inspector 09/13/17 documented as of this encounter
--- OUTSIDE RECORDS SUMMARY | 2022-02-14 14:58 | XMS_ITS | Encounter Summary ---
:1970 Author Organization [email or web address] Address [address], [place] [address] Care Team Providers Name Role Phone Gagandeep Hinojosa MD Primary Care Provider Reason for Visit Reason Comments HC Face To Face Visit Encounter Details Date Type Department Care Team Description 11/04/2017 Care Coord Deborah dOom, [facility] Fa ce To Face Office Visit Medicine [facility] Visit 1415 [place] 1415 [facility] [place] [address] [place] [address] [phone] Social History Tobacco Use Types Packs/Day Years Used Date Smoking Tobacco: Every Day Cigarettes 1 25 Smokeless Tobacco: Former Qu it: 10/25/2012 Comments: Smoking History Packs/day: Alcohol Use Standard Drinks/Week Comments No 0 (1 standard drink = 0.6 oz pure Alcoho lic Drinks/day: Amount:0; alcohol) Freq:Never; Sex Assigned at Date Recorded Not on file documented as of this encounter Progress Notes Deborah Rodrigues, [facility] - 11/04/2017 9:00 AM CDT Care [...] Primary documented in this encounter Care Teams Wire Saw Operator Relationship Specialty Start Date End Date Gagandeep Hinojosa MD PCP - General 05/17/[address] [place] [address] [place] [address] Vane Zarate Psychiatrist Psychiatry 03/22/12 [facility] Psychotherapist 08/04/17 [facility] Building Repair Maintenance Supervisor 09/13/17 documented as of this encounter
--- OUTSIDE RECORDS SUMMARY | 2022-02-14 14:58 | XMS_ITS | Encounter Summary ---
:1970 Author Organization [employer] Address [address] [place] [address] Care Team Providers Name Role Phone Gagandeep Hinojosa MD Primary Care Provider Reason for Visit Reason Comments HC Face To Face Visit Encounter Details Date Type Department Care Team Description 08/04/2017 Care Coord Judy Luke RN [facility] Face To Face Office Visit Medicine 1415 [facility] Visit [address] [address] Social History Tobacco Use Types Packs/Day Years [...] RN - 08/04/2017 9:00 AM CDT RN Park Maintainer Visit Pt: Timur Krishnamurthy Referred by: Gagandeep [...] or others. Rustam continues to see his [facility] therapist every Tuesday and notes he is [...] place including monthly psychiatry, weekly therapy, weekly [facility], and [facility] walk-in every Tuesday. Rustam has previously worked with MH Case Management through [facility] and thinks this would be helpful again. So, we called [facility] together and requested Han Arshad, the therapist [...] at work, but not walking at the [facility] anymore. Heis interested in trying basketball. Rustam states he isn't really exercising at this time, rather he is periodically walking at the [facility], only about 2 times a week. [...] identified: Finance and Emotional. BG Goals: Health Correction Lab Goal <7 Pre-meal: 70-130 mg/dL PPG: [...] verify understanding. SHARED PLAN: Left message for [facility] requesting a Dental Chair Assembler. Continue regular mental health follow up appts [...] most recent episode (or current) unspecified Health long term, active care coordinati on Uncontrolled type 2 diabetes mellitus wi th microalbuminuria, with long-term current use of insulin documented in this encounter Care Teams Supervisor Testing Relationship Specialty Start Date End Date Gagandeep Hinojosa MD PCP - General 05/17/[address] [place] [address] [place] [address] Vane Zarate Psychiatrist Psychiatry 03/22/12 [facility] Mental [facility] Psychotherapist 08/04/17 documented as of this encounter
--- OUTSIDE RECORDS SUMMARY | 2022-02-14 14:58 | XMS_ITS | Encounter Summary ---
:1970 Author Organization [employer] Address [address] [place] [address] Care Team Providers Name Role Phone Gagandeep Hinojosa MD Primary Care Provider Reason for Visit Reason Onset Date Comments Refill 01/11/2018 Encounter Details Date Type Department Care Team Description 01/11/2018 [facility]phone [facility] Gagandeep Hinojosa MD Refill 1415 [facility] . 1415 [place] [address] [place] [address] [phone] (Wo rk) Social History Tobacco Use Types [...] CDT I will route to career technical supervisor as he has appt with her tomorrow. [...] - 01/26/2018 11:38 AM CDT Performed at [facility], [address] [place] [address] CLIA number [id number] Gagandeep Hinojosa MD LAB_1 Performing Organization Address City/State/ZIP Code Phon e Number PN SOFT [address] [place] [address] documented in this encounter Visit Diagnoses Diagnosis Hyperkalemia - Primary Hyperpotassemia Uncontrolled type 2 diabetes mellitus wi th microalbuminuria, with long-term current use of insulin Hyperkalemia Hyperpotassemia documented in this encounter Care Teams Cake Decorator Relationship Specialty Start Date End Date Gagandeep Hinojosa MD PCP - General 05/17/12 [address] [place] [address] Vane Zarate Psychiatrsamantha Psychiatry 03/22/12 [facility] Psychotherapist 08/04/17 [facility] Research Laboratory Manager 09/13/17 documented as of this encounter
--- OUTSIDE RECORDS SUMMARY | 2022-02-14 14:58 | XMS_ITS | Encounter Summary ---
:1970 Author Organization [facility] Address [address] [address] Care Team Providers Name Role Phone Gagandeep Hinojosa MD Primary Care Provider Reason for Visit Reason Comments [facility] Face To Face Visit Encounter Details Date Type Department Care Team Description 01/12/2018 Care Coord Deborah Odom, [facility] Fa ce To Face Office Visit Medicine [facility] Visit [address] [place] 1415 [facility]. [place] [address] [place] [address] [phone] Social History Tobacco Use Types Packs/Day Years Used Date Smoking Tobacco: Every Day Cigarettes 1 25 Smokeless Tobacco: Former Qu it: 10/25/2012 Comments: Smoking History Packs/day: Alcohol Use Standard Drinks/Week Comments No 0 (1 standard drink = 0.6 oz pure Alcoho lic Drinks/day: Amount:0; alcohol) Freq:Never; Sex Assigned at Date Recorded Not on file documented as of this encounter Progress Notes Deborah Rodrigues, [facility] - 01/12/2018 10:00 AM CDT Care Coordination Visit Pt: Timur Krishnamurthy Referred by: Gagandeep Hinojosa MD Reason for visit: Care Coordination Timur was seen alone. Discussion/actions: Met with Rustam for a scheduled [facility] appointment. RN Certified Medical Records Coder, Judy Pittman, was present for the appointment. [...] he was hoping to go to [facility]. Rustam stated that he talk to them, but they do not accept Medicare, so he is planning on applying for [place]. I explained to Rustam that he is well over [place] for [place] or [place], so he would have to pay for private insurance. I encouraged him to discuss his options with his [facility] CM, who he is meeting with [...] Primary documented in this encounter Care Teams Client Portfolio Manager Relationship Specialty Start Date End Date Gagandeep Hinojosa MD PCP - General 05/17/12 [facility] [place] [address] Vane Zarate Psychiatrist Psychiatry 03/22/12 [facility] Psychotherapist 08/04/17 [facility] CM Machine Assembler Supervisor 09/13/17 documented as of this encounter
--- OUTSIDE RECORDS SUMMARY | 2022-02-14 14:58 | XMS_ITS | Encounter Summary ---
:1970 Author Organization [facility] Address [address] [place] [address] Care Team Providers Name Role Phone Gagandeep Hinojosa MD Primary Care Provider Encounter Details Date Type Department Care Team Description 01/19/2018 Notes/Orders [facility] Vane Zarate, Encounter for long-term 1415 DesotoDilip Bonds MD (current) use of [place] Vigil [address] medications (Primary [phone] HEAVEN [address] Dx) [place], [place] [address] Social History Tobacco Use Types Packs/Day Years [...] 4:07 PM CDT Performed at [facility], [facility] [place] [address] CLIA number [id number] Joey Zarate MD LAB_1 Performing Organization Address [facility] Phon e Number PN SOFT [address] [place] [address] T3, Free, Serum (01/19/2018 11:41 AM CDT) P athologist Signature Triiodothyronin 2.5 1.7 - 3.7 PN SOFT e, Free pg/mL Specimen Anatomical Collection Method Collection Time Receive d Time (Source) Location / / Volume Laterality 01/19/2018 11:41 01/19/2018 3:07 AM CDT PM CDT Narrative PN SOFT - 01/19/2018 4:07 PM CDT Performed at [address] [address] CLIA number [id number] .Results faxed to Jennifer Zarate M.D 9,[id number], 01/19/2018,16:15, by MONROE Joey Zarate MD LAB_1 Performing Organization Address [facility] Phon e Number PN SOFT [address] [place] [address] [phone] (ABNORMAL) TSH (01/19/2018 11:41 AM CDT) [facility] gist Method Time Signature Thyroid 4.52 (H) 0.30 - PN SOFT Stimulating 4.50 Hormone uIU/mL Specimen Anatomical Collection Method Collection Time Receive d Time (Source) Location / / Volume Laterality 01/19/2018 11:41 01/19/2018 3:07 AM CDT PM CDT Narrative PN SOFT - 01/19/2018 4:07 PM CDT Performed at [address] [address] CLIA number [id number] Joey Zarate MD LAB_1 Performing Organization Address [facility] Phon e Number PN SOFT [address] [place] [address] (ABNORMAL) Sodium (01/19/2018 11:41 AM CDT) P athologist Signature Sodium 135 (L) 136 - 145 PN SOFT mmol/L Specimen Anatomical Collection Method Collection Time Receive d Time (Source) Location / / Volume Laterality 01/19/2018 11:41 01/19/2018 2:49 AM CDT PM CDT Narrative PN SOFT - 01/19/2018 3:54 PM CDT Performed at [facility], [facility] [address] [place] [address] CLIA number [id number] Joey Zarate MD LAB_1 Performing Organization Address City/[facility] Code Phon e Number PN SOFT [address] [place] [address] (ABNORMAL) Creatinine / GFR (01/19/2018 11:41 AM [...] - 01/19/2018 3:54 PM CDT Performed at [facility], [facility] [address] [place] [address] CLIA number [id number] Joey Zarate MD LAB_1 Performing Organization Address City/[facility] Code Phon e Number PN SOFT [address] [place] [address] [phone] [place] (01/19/2018 11:41 AM CDT) Analysis Performed At Patho logis Time Signature Date Last Dose 01-19-2018 PN SOFT Lith Time Last Dose 730 am PN SOFT [place] Level 0.73 0.50 - PN SOFT 1.10 mmol/L Specimen Anatomical Collection Method Collection Time Receive d Time (Source) Location / / Volume Laterality 01/19/2018 11:41 01/19/2018 3:09 AM CDT PM CDT Narrative PN SOFT - 01/19/2018 3:38 PM CDT Performed at [address] [address] CLIA number [id number] Joey Zarate MD LAB_1 Performing Organization Address [facility] Phon e Number PN SOFT [address] [place] [address] (ABNORMAL) Hgb A1c (01/19/2018 11:41 AM CDT) athologist Signature HGB A1C 8.0 (H) 4.0 - 5.6 % PN SOFT Specimen Anatomical Collection Method Collection Time Receive d Time (Source) Location / / Volume Laterality 01/19/2018 11:41 01/19/2018 3:10 AM CDT PM CDT Narrative PN SOFT - 01/19/2018 10:04 PM CDT Performed at [address] [address] CLIA number [id number] .Results faxed to Jennifer Zarate M.D 9,[phone], 01/19/2018,16:15, by [place] Joey Zarate MD LAB_1 Performing Organization Address [facility] Phon e Number PN SOFT [address] [place] [address] Call List Questions (01/19/2018 11:35 AM CDT) P athologist Signature Call Back Done PN SOFT Documented Specimen (Source) Anatomical Collection Method Collection Time Re ceived Time Location / / Volume Laterality 01/19/2018 11:35 AM CDT Narrative PN SOFT - 01/19/2018 11:35 AM CDT Performed at [address] [address] CLIA number [id number] Joey Zarate MD LAB_1 Performing Organization Address [facility]/ZIP Code Phon e Number PN SOFT [address] [place] [address] documented in this encounter Visit Diagnoses Diagnosis Encounter for long-term (current) use of medications - Primary Encounter for long-term (current) use of other medications Encounter for long-term (current) use of medications Encounter for long-term (current) use of other medications documented in this encounter Care Teams Convict Guard Relationship Specialty Start Date End Date Gagandeep Hinojosa MD PCP - General 05/17/12 14[address] [facility] [place] Gerber [address] Vane Zarate Psychiatrist Psychiatry 03/22/12 [facility] Psychotherapist 08/04/17 [facility] Cutting And Printing Machine Operator 09/13/17 documented as of this encounter
--- OUTSIDE RECORDS SUMMARY | 2022-02-14 14:58 | XMS_ITS | Encounter Summary ---
:1970 Author Organization [facility] Address [address] [place] [address] Care Team Providers Name Role Phone Gagandeep Hinojosa MD Primary Care Provider Reason for Referral Procedure/Equipment (Routine) - Closed Specialty Diagnoses / Procedures Referred By Contact Refer red To Contact Diagnoses Diabetic ulcer of left midfoot associated with type 2 diabetes mellitus, with muscle involvement without evidence of necrosis (HRC) Gagandeep Hinojosa MD Procedures Walking Boot [address] [place] [address] Referral ID Status Reason Start Date Expiration Date Visits Requ ested Visits Authorized [id number] Closed 08/05/2017 11/04/2018 1 1 Procedure/Equipment (Routine) - Incomplete Specialty Diagnoses / Procedures Referred By Contact Refer red To Contact Diagnoses Left foot pain Diabetic ulcer of left midfoot associated with type 2 diabetes mellitus, with muscle involvement without evidence of necrosis (HRC) Gagandeep Hinojosa MD Procedures XR Foot Lt 2 Views [address] [place] [address] Referral ID Status Reason Start Date Expiration Date Visits V isits Requested Authorized [id number] Incomplete 08/05/2017 11/04/2018 1 1 Reason for Visit Reason Comments EDEMA left lower leg Encounter Details Date Type Department Care Team Description 08/05/2017 Office Visit Gagandeep Storm quiana t pain (Primary Dx); Romario Rubio MD Diabetic ulcer of left midfoot associate d with type 2 diabetes mellitus, with muscle involvement without evidence of necrosis (HRC); [address] 14[address] [facility] K[place] Mccarty [address] [address] [phone] KATIANA VELAZQUEZ [address] Social History Tobacco [...] Body Mass Index 30.56 04/05/2017 3:18 PM [employer] TECHNICAL MANAGER documented in this encounter Progress Notes Gagandeep [...] List Diagnosis Date Noted ??? Tobacco abuse ([facility]) 02/24/2016 ??? Tinea versicolor 07/18/2015 ??? Tobacco use disorder ([facility]) 10/26/2012 ??? Anemia 05/02/2012 Overview Note: Anemia, unspecified ??? Health snf, active care coordination 03/22/2012 Overview Note: Darkroom Worker: JOSETTE Yip [phone] Care coordination focus: T2DM, financial resources Living situation: lives with spouse Important notes: SSDI, significant insulin resistance, uses Relion insulin, commonly reaches Medicare Coverage Gap See care plan under Chart Review > [facility] Reports > [facility] CARE PLAN REPORT ??? Microalbuminuria 02/04/2012 ??? NM, old ([facility]) 09/16/2011 ??? History of PTCA 09/16/2011 Overview Note: History of PTCA 04/2011 BMS RCA ??? Obesity, Class I, BMI 30-34.9 ([facility]) 09/16/2011 Overview Note: Body mass index is 31.16 kg/(m^2). ??? Hyperlipidemia with target LDL less than 70 ([facility]) 06/08/2011 Overview Note: Hyperlipidemia LDL goal < 70 ??? ASHD (arteriosclerotic heart disease) ([facility]) 05/04/2011 ??? Erectile dysfunction 01/22/2011 Overview Note: side effect Risperdal ??? Type 2 diabetes mellitus, uncontrolled ([facility]) 12/11/2010 Overview Note: Type II or unspecified type diabetes mellitus without mention of complication, uncontrolled ([facility]) ??? Dermatophytosis of body 09/04/2010 Class: Historical Overview Note: Tinea Corporis ??? Coronary atherosclerosis ([facility]) 12/22/2009 Overview Note: LW Modifier: mod RCA, negative nuclear stress test ; CAD ??? Nonspecific abnormal results of liver function study 12/22/2009 Overview Note: Liver Function Tests Abnormal ??? Bipolar I disorder ([facility]) 09/15/2005 Overview Note: LW Onset: [id number] ; Bipolar I Dis FAMILY HISTORY OR [...] FINDINGS: ??2 views were obtained. No ac [place] fracture or dislocation. No radiographic evidence of [...] (HRC) documented in this encounter Care Teams Veneer Stacker Relationship Specialty Start Date End Date Gagandeep Hinojosa MD PCP - General 05/17/12 [address] [place] [address] Vane Zarate Psychiatrist Psychiatry 03/22/12 [facility] Mental [facility] Psychotherapist 08/04/17 documented as of this encounter
--- OUTSIDE RECORDS SUMMARY | 2022-02-14 14:58 | XMS_ITS | Encounter Summary ---
:1970 Author Organization [facility] Address [address], [place] [address] Care Team Providers Name Role Phone Gagandeep Hinojosa MD Primary Care Provider Reason for Visit Reason Comments [facility] Face To Face Visit Encounter Details Date Type Department Care Team Description 10/20/2017 Care Coord Yaritza [facility] Deborah Rodrigues, [facility] Fa ce To Face Office Visit Medicine [facility] Visit [address] [facility] [place] [address] [place] [address] [phone] Social History Tobacco Use Types Packs/Day Years Used Date Smoking Tobacco: Every Day Cigarettes 1 25 Smokeless Tobacco: Former Qu it: 10/25/2012 Comments: Smoking History Packs/day: Alcohol Use Standard Drinks/Week Comments No 0 (1 standard drink = 0.6 oz pure Alcoho lic Drinks/day: Amount:0; alcohol) Freq:Never; Sex Assigned at Date Recorded Not on file documented as of this encounter Progress Notes Deborah Rodrigues, [facility] - 10/20/2017 9:00 AM CDT Care Coordination Visit Pt: Timur Krishnamurthy Referred by: Gagandeep Hinojosa MD Reason for visit: Care Coordination Timur was seen alone. Discussion/actions: Rustam reports that his blood sugars are doing well and he is taking all of this medication as prescribed. Rustam went to see the poditrist, and agreed to update RN Biology Tutor, Judy Pittman, if he has ongoing concerns [...] overall. Rustam met with his mental health manager of case yesterday, and will continue to meet with [...] Primary documented in this encounter Care Teams Icing Mixer Relationship Specialty Start Date End Date Gagandeep Hinojosa MD PCP - General 05/17/12 1415 [facility] [place] Ger[place] [address] Vane Zarate Psychiatrsamantha Psychiatry 03/22/12 [facility] Mental [facility] Psychotherapist 08/04/17 [facility] Senior Property Accountant 09/13/17 documented as of this encounter
--- OUTSIDE RECORDS SUMMARY | 2022-02-14 14:58 | XMS_ITS | Encounter Summary ---
:1970 Author Organization [employer] Address [address], [place] [address] Care Team Providers Name Role Phone Gagandeep Hinojosa MD Primary Care Provider Reason for Referral Procedure/Equipment (Routine) - Closed Specialty Diagnoses / Procedures Referred By Contact Refer red To Contact Diagnoses Type 2 diabetes mellitus with diabetic neuropathy, unspecified whether termite exterminator insulin use (HRC) History of diabetic ulcer of foot Edward Nino DPM [address] [place], [place] [address] Referral ID Status Reason Start Date Expiration Date Visits Requ ested Visits Authorized [id number] Closed 10/08/2017 01/07/2019 1 1 Scheduling Instructions Your provider has recommended an appoint ment with [facility]. You may call [phone] t o schedule your appointment. If you [...] of skin (HRC) Gagandeep Hinojosa MD [address] [place] [address] Referral ID Status Reason Start Date Expiration Date Visits Requ ested Visits Authorized [id number] Closed 08/15/2017 11/14/2018 1 1 Encounter Details Date Type Department Care Team Description 10/06/2017 Initial Consult [place] [address] Edward Nino, Type 2 diabetes mellitus with diabetic neuropathy, unspecified whether termite exterminator insulin use (HRC) (Primary Dx); Podiatric MedSurg DPSimi History of diabetic ulcer of foot [address] [place] [address] [place] [address] [facility] 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 He does smoke a pack of [...] go to a foot care nurse at [facility]. Follow up with me as needed. LATA:BREANNA C: CONFIRM #: [id number] documented in this encounter Plan of Treatment Scheduled Referrals Name Type Priority Associated Diagnoses Order S chedule Orthotics Order Referral Routine Type 2 diabetes mellitus with Ordered: 10/08/2017 diabetic neuropathy, unspecified whether long ter m insulin use (HRC ) History of diabetic ulcer of foot documented as of this encounter Visit Diagnoses Diagnosis Type 2 diabetes mellitus with diabetic n europathy, unspecified whether termite exterminator insulin use (HRC) - Primary History of diabetic ulcer of foot documented in this encounter Care Teams Retail Operations Manager Relationship Specialty Start Date End Date Gagandeep Hinojosa MD PCP - General 05/17/12 14[address] [facility] [place] [address] Vane Zarate Psychiatrist Psychiatry 03/22/12 [facility] Psychotherapist 08/04/17 [facility] Log Yard Manager 09/13/17 documented as of this encounter
--- OUTSIDE RECORDS SUMMARY | 2022-02-14 14:58 | XMS_ITS | Encounter Summary ---
:1970 Author Organization [employer] Address [address], [place] [address] Care Team Providers Name Role Phone Gagandeep Hinojosa MD Primary Care Provider Reason for Visit Reason Comments [facility] Face To Face Visit Encounter Details Date Type Department Care Team Description 09/22/2017 Care Coord Deborah Odom, [facility] Fa ce To Face Office Visit Medicine [facility] Visit [address] [place] [facility] [place] [address] [place] [address] [phone] Social History Tobacco Use Types Packs/Day Years [...] this encounter Progress Notes Deborah Rodrigues, [facility] - 09/22/2017 10:00 AM CDT Care Coordination [...] at this time and scheduled a follow-up [facility] appointment in 2 weeks. This note was [...] PLAN: -MH CM appointment 09/29 at 9:30. -[facility] appointment 10/06 at 8:00. -Therapy appointment weekly. Pt verbalized understanding and agreed with plan of care and follow up. documented in this encounter Plan of Treatment Not on filedocumented as of this encounter Visit Diagnoses Diagnosis Health group home, active care coordinati on - Primary documented in this encounter Care Teams Loom Operator Relationship Specialty Start Date End Date Gagandeep Hinojosa MD PCP - General 05/17/12 1415 [facility] [place] Gerber [address] Vane Zarate Psychiatrist Psychiatry 03/22/12 [facility] Psychotherapist 08/04/17 [facility] CM General Manager Farm 09/13/17 documented as of this encounter
--- OUTSIDE RECORDS SUMMARY | 2022-02-14 14:58 | XMS_ITS | Encounter Summary ---
:1970 Author Organization [employer] Address [address] [address] Care Team Providers Name Role Phone Gagandeep Hinojosa MD Primary Care Provider Reason for Visit Reason Comments [facility] Face To Face Visit Encounter Details Date Type Department Care Team Description 09/13/2017 Care Coord Deborah Odom, [facility] Fa ce To Face Office Visit Medicine [facility] Visit [address] [place] [address] [facility] [address] [place] [address] [phone] Social History Tobacco Use Types Packs/Day Years Used Date Smoking Tobacco: Every Day Cigarettes 1 25 Smokeless Tobacco: Former Qu it: 10/25/2012 Comments: Smoking History Packs/day: Alcohol Use Standard Drinks/Week Comments No 0 (1 standard drink = 0.6 oz pure Alcoho lic Drinks/day: Amount:0; alcohol) Freq:Never; Sex Assigned at Date Recorded Not on file documented as of this encounter Progress Notes Deborah Rodrigues, [facility] - 09/13/2017 8:00 AM CDT Care [...] medications as prescribed. He is attending the [facility] weekly and attend individual therapy weekly, both of which he thinks are really good support for him. Rustam met with his CM, Ksenia Weiss (ph: [phone]),and he said it went well. He was [...] Primary documented in this encounter Care Teams Material Requirements Planning Manager Relationship Specialty Start Date End Date Gagandeep Hinojosa MD PCP - General 05/17/12 14[address] [facility] [place] [address] Vane Zarate Psychiatrsamantha Psychiatry 03/22/12 [facility] Health Psychotherapist 08/04/17 [facility] CM Cottage Supervisor 09/13/17 documented as of this encounter
--- OUTSIDE RECORDS SUMMARY | 2022-02-14 14:58 | XMS_ITS | Encounter Summary ---
:1970 Author Organization [employer] Address [address], [place] [address] Care Team Providers Name Role Phone Gagandeep Hinojosa MD Primary Care Provider Reason for Visit Reason Comments [facility] Phone Visit Encounter Details Date Type Department Care Team Description 01/10/2018 Care Coord Phone [facility] Deborah Rodrigues, [facility] Phone Visit Medicine [facility] 14[address] [facility] . [address] [place] [address] [place] [address] [phone] Social History Tobacco Use Types Packs/Day Years [...] this encounter Progress Notes Deborah Rodrigues, [facility] - 01/10/2018 11:30 AM CDT Pick Up Truck Driver - Phone Call Contact with: Rustam Reason for call: Care Coordination Discussion/actions: Called Rustam to check-in, since his discharge yesterday (01/09). Rustam reports I got too narrow in my thinking, but said he is doing better now. Rustam agreed to a hospital discharge appointment with his PCP, followed by a [facility] appointment. Rustam got tearful at some points [...] documented in this encounter Care Teams Jig Boring Machine Set Up Operator Relationship Specialty Start Date End Date Gagandeep Hinojosa MD PCP - General 05/17/12 14[address] [place] [address] Vane Zarate Psychiatrist Psychiatry 03/22/12 [facility] Health Psychotherapist 08/04/17 [facility] Field Operator 09/13/17 documented as of this encounter
--- OUTSIDE RECORDS SUMMARY | 2022-02-14 14:58 | XMS_ITS | Encounter Summary ---
:1970 Author Organization [employer] Address [address] [place] [address] Care Team Providers Name Role Phone Gagandeep Hinojosa MD Primary Care Provider Reason for Visit Reason Comments APPOINTMENT REQUEST Encounter Details Date Type Department Care Team Description 09/12/2017 Telephone [facility] Gagandeep Hinojosa, APPOINTMENT REQUEST [id number] [facility] [address] [place] [address] [place], [place] [address] (Wo rk) Social History Tobacco Use Types [...] PM CDT Reason for Call: Deborah Rodrigues AUTO GLASS INSTALLER - Patient calls. He has an appointment on 09/13/17 at 8 am. States, recently had Surgery and he needs to be with her tomorrow. He prefers to speak with you byphone instead of at [facility] 09/13/17 at 8am. Patient Timur may be contacted at . documented in this encounter Plan of Treatment Not on filedocumented as of this encounter Visit Diagnoses Not on filedocumented in this encounter Care Teams Auto Locator Relationship Specialty Start Date End Date Gagandeep Hinojosa MD PCP - General 05/17/[address] [place] [address] Vane Zarate Psychiatrist Psychiatry 03/22/12 [facility] Psychotherapist 08/04/17 [facility] Packaging Sales Representative 09/13/17 documented as of this encounter
--- OUTSIDE RECORDS SUMMARY | 2022-02-14 14:58 | XMS_ITS | Encounter Summary ---
:1970 Author Organization [employer] Address [address] [place] [address] Care Team Providers Name Role Phone Gagandeep Hinojosa MD Primary Care Provider Reason for Visit Reason Comments Hospital Discharge Follow-up Encounter Details Date Type Department Care Team Description 01/16/2018 Office Visit Gagandeep Storm Bipolar I disorder (HRC) (Primary Dx); Romario Rubio MD Encounter for immunization; [address] 1415 [facility] [place] [address] Ave [phone] [place], [place] [address] Social History Tobacco Use Types [...] Body Mass Index 29.56 04/05/2017 3:18 PM COUNTER WAITRESS/WAITER documented in this encounter Progress Notes Gagandeep Hinojosa MD - 01/16/2018 1:00 PM CDT ICD-10-CM 1. Bipolar I disorder ([facility]) F31.9 2. Encounter for immunization Z23 Influenza IIV4 (Quadrivalent) 0.5 mL (70798) 3. Hyponatremia E87.1 Basic Metabolic Panel CHIEF COMPLAINT: Chief Complaint Patient presents with ??? Hospital Discharge Follow-up SUBJECTIVE : Timur Krishnamurthy is an 47 y.o. male who presents for posthospitalization recheck. [facility] of benzodiazepine and was not comfortable at that facility, signing himself out AMA. He was subsequently readmitted to [facility], where he has more comfort andwas observed [...] Noted ??? Hyponatremia 01/16/2018 ??? Tobacco abuse ([facility]) 02/24/2016 ??? Tinea versicolor 07/18/2015 ??? Tobacco use disorder ([facility]) 10/26/2012 ??? Anemia 05/02/2012 Overview Note: Anemia, unspecified ??? Health prison, active care coordination 03/22/2012 Overview Note: Multi Needle Machine Operator: JOSETTE Yip [phone] Care coordination focus: T2DM, financial resources Living situation: lives with spouse Important notes: SSDI, significant insulin resistance, uses Relion insulin, commonly reaches Medicare Coverage Gap See care plan under Chart [facility] CARE PLAN REPORT ??? Microalbuminuria 02/04/2012 ??? [place], old ([facility]) 09/16/2011 ??? History of PTCA 09/16/2011 Overview Note: History of PTCA 04/2011 BMS RCA ??? Obesity, Class I, BMI 30-34.9 ([facility]) 09/16/2011 Overview Note: Body mass index is 31.16 kg/(m^2). ??? Hyperlipidemia with target LDL less than 70 ([facility]) 06/08/2011 Overview Note: Hyperlipidemia LDL goal < 70 ??? ASHD (arteriosclerotic heart disease) ([facility]) 05/04/2011 ??? Erectile dysfunction 01/22/2011 Overview Note: side effect Risperdal ??? Type 2 diabetes mellitus, uncontrolled ([facility]) 12/11/2010 Overview Note: Type II or unspecified type diabetes mellitus without mention of complication, uncontrolled ([facility]) ??? Dermatophytosis of body 09/04/2010 Class: Historical Overview Note: Tinea Corporis ??? Coronary atherosclerosis ([facility]) 12/22/2009 Overview Note: LW Modifier: mod RCA, negative nuclear stress test ; CAD ??? Nonspecific abnormal results of liver function study 12/22/2009 Overview Note: Liver Function Tests Abnormal ??? Bipolar I disorder ([facility]) 09/15/2005 Overview Note: LW Onset: [id number] ; Bipolar I Dis FAMILY HISTORY OR [...] immunization Z23 Influenza IIV4 (Quadrivalent) 0.5 mL (78976) 3. Hyponatremia E87.1 Basic Metabolic Panel Follow-up: [...] - 01/16/2018 6:36 PM CDT Performed at [facility] [address] [place] [address] CLIA number [id number] Gagandeep Hinojosa MD LAB_1 Performing Organization Address City/State/ZIP Code Phon e Number PN SOFT [address] [place] [address] documented in this encounter Visit Diagnoses Diagnosis Bipolar I disorder (HRC) - Primary Bipolar I disorder, most recent episode (or current) unspecified Encounter for immunization Need for other specified prophylactic va ccination against single bacterial disease Hyponatremia Hyposmolality and/or hyponatremia Hyponatremia Hyposmolality and/or hyponatremia documented in this encounter Care Teams Poultry Breeder Relationship Specialty Start Date End Date Gagandeep Hinojosa MD PCP - General 05/17/12 [facility] [place] [address] Vane Zarate Psychiatrsamantha Psychiatry 03/22/12 [facility] Psychotherapist 08/04/17 [facility] Interior Plant Caretaker 09/13/17 documented as of this encounter
--- OUTSIDE RECORDS SUMMARY | 2022-02-14 14:58 | XMS_ITS | Encounter Summary ---
:1970 Author Organization [facility] Address [address] [place] [address] Care Team Providers Name Role Phone Gagandeep Hinojosa MD Primary Care Provider Reason for Visit Reason Comments [facility] Phone Visit Encounter Details Date Type Department Care Team Description 05/26/2017 Care Coord Phone Judy Luke R N [facility] Phone Visit Medicine 1415 [facility] 1415 [facility] [place] [address] [place] [address] [phone] Social History Tobacco Use Types Packs/Day Years [...] RN - 05/26/2017 10:20 AM CST RN Signing Teacher - Diabetes Follow-Up Current diabetes medication [...] with plan of care and follow up. ORATE COMMUNICATIONS MANAGER documented in this encounter Plan of Treatment Not on filedocumented as of this encounter Visit Diagnoses Diagnosis Health intermediate, active care coordinati on - Primary Uncontrolled type 2 diabetes mellitus wi thout complication, with long-term current use of insulin documented in this encounter Care Teams Stave Cutting Supervisor Relationship Specialty Start Date End Date Gagandeep Hinojosa MD PCP - General 05/17/12 [facility]5 [facility] [place] [address] Vane Zarate Psychiatrist Psychiatry 03/22/12 documented as of this encounter
--- OUTSIDE RECORDS SUMMARY | 2022-02-14 14:58 | XMS_ITS | Encounter Summary ---
:1970 Author Organization [employer] Address [address] [place] [address] Care Team Providers Name Role Phone Gagandeep Hinojosa MD Primary Care Provider Reason for Visit Reason Comments Medication Request Encounter Details Date Type Department Care Team Description 09/20/2017 Telephone [facility] Gagandeep Hinojosa, Medication Request 1415 [facility] [place] [address] 1415 [facility] [phone] [place], [place] [address] (Wo rk) Social History Tobacco [...] on filedocumented in this encounter Care Teams Call Center Supervisor Relationship Specialty Start Date End Date Gagandeep Hinojosa MD PCP - General 05/17/[address] [place] [address] [place] [address] Vane Zarate Psychiatrist Psychiatry 03/22/12 [facility] Psychotherapist 08/04/17 [facility] Credit Review Analyst 09/13/17 documented as of this encounter
--- OUTSIDE RECORDS SUMMARY | 2022-02-14 14:58 | XMS_ITS | Encounter Summary ---
:1970 Author Organization [employer] Address [address] [place] [address] Care Team Providers Name Role Phone Gagandeep Hinojosa MD Primary Care Provider Encounter Details Date Type Department Care Team Description 08/15/2017 Lab Visit [place] [facility] Hyperlipidemia, unspecified hyperlipidemia type; [address] Uncontrolled type 2 diabetes mellitus with diabetic polyneuropathy, with long- term current use of insulin (HRC); [place] [address] Uncontrolled type 2 diabetes mellitus without complication, without long-term current use of insulin (HRC) [phone] Social History Tobacco Use Types Packs/Day Years [...] (ABNORMAL) Microalb/Creat Ratio (08/15/2017 8:50 AM CDT) [facility] Method Time Signature Microalbumin 150.2 [...] - 08/15/2017 12:05 PM CDT Performed at [facility], [address] [place] [id number] CLIA number [id number] Gagandeep Hinojosa MD LAB_1 Performing Organization Address [facility] Phon e Number PN SOFT [address] [place], [place] [address] (ABNORMAL) POCT Glycosylated Hemoglobin (HB A1C) (08/15/2017 8:43 AM CDT) [facility] Method Time Signature Glycosolated HGB [...] - 08/15/2017 8:55 AM CDT Performed at [facility], [address] [place] [address] CLIA number [id number] Gagandeep Hinojosa MD LAB_1 Performing Organization Address [facility]/ZIP Code Phon e Number PN SOFT [address] [place] [address] (ABNORMAL) Lipid Panel and Direct LDL(If Needed) [...] - 08/15/2017 3:34 PM CDT Performed at [facility], [address] [place] [address] CLIA number [id number] Gagandeep Hinojosa MD LAB_1 Performing Organization Address [facility] Phon e Number PN SOFT [address] [place] [address] Extra Serum Separator Tube (yellow) (08/15/2017 8:35 AM CDT) athologist Signature Extra SST Top Drawn PN SOFT Drawn Specimen (Source) Anatomical Location Collection Method / Collectio n Time Received Time / Laterality Volume Narrative PN SOFT - 08/15/2017 8:35 AM CDT Performed at [facility], [address] [place] [address] CLIA number [id number] Gagandeep Hinojosa MD LAB_1 Performing Organization Address City/[facility] Phon e Number PN SOFT [address] [place] [address] documented in this encounter Visit Diagnoses Diagnosis Hyperlipidemia, unspecified hyperlipidem ia type (HRC) Uncontrolled type 2 diabetes mellitus wi th diabetic polyneuropathy, with long-term current use of insulin Uncontrolled type 2 diabetes mellitus wi thout complication, without long-term current use of insulin documented in this encounter Care Teams Locksmith Relationship Specialty Start Date End Date Gagandeep Hinojosa MD PCP - General 05/17/12 [address] [facility] [place] [address] Vane Zarate Psychiatrist Psychiatry 03/22/12 [facility] Mental [facility] Psychotherapist 08/04/17 documented as of this encounter
--- OUTSIDE RECORDS SUMMARY | 2022-02-14 14:58 | XMS_ITS | Encounter Summary ---
:1970 Author Organization [employer] Address [address], [place] [address] Care Team Providers Name Role Phone Gagandeep Hinojosa MD Primary Care Provider Reason for Visit Reason Comments [facility] Phone Visit Encounter Details Date Type Department Care Team Description 09/05/2017 Care Coord Phone [facility] Deborah Rodrigues, [facility] Phone Visit Medicine [facility] 1415 [facility] . [address] [place] [address] [place] [address] [phone] Social History Tobacco Use Types Packs/Day Years Used Date Smoking Tobacco: Every Day Cigarettes 1 25 Smokeless Tobacco: Former Qu it: 10/25/2012 Comments: Smoking History Packs/day: Alcohol Use Standard Drinks/Week Comments No 0 (1 standard drink = 0.6 oz pure Alcoho lic Drinks/day: Amount:0; alcohol) Freq:Never; Sex Assigned at Date Recorded Not on file documented as of this encounter Progress Notes Deborah Rodrigues, [facility] - 09/05/2017 10:30 AM CDT Benefit Director - Phone Call Contact with: Rustam Reason for call: Care Coordination Discussion/actions: Received a phone message from Rustam, that was forwarded from RN career development director, Judy Pittman. I called Rustam back, as we had previously discussed I would be his point of contact for anything other than his physical health. Rustam stated that he was at the [employer], so he could not talk long. [...] typographic or phonetic errors. Shared plan: [facility] appointment 09/09 at 11:00. Pt verbalized understanding and agreed with plan of care and follow up. documented in this encounter Plan of Treatment Not on filedocumented as of this encounter Visit Diagnoses Diagnosis Health correction, active care coordinati on - Primary documented in this encounter Care Teams Cane Splicer Relationship Specialty Start Date End Date Gagandeep Hinojosa MD PCP - General 05/17/[address] [place] [address] [place] [address] Vane Zarate Psychiatrist Psychiatry 03/22/12 [facility] Mental [facility] Psychotherapist 08/04/17 documented as of this encounter
--- OUTSIDE RECORDS SUMMARY | 2022-02-14 14:58 | XMS_ITS | Encounter Summary ---
:1970 Author Organization [facility] Address [address] [place] [address] Care Team Providers Name Role Phone Gagandeep Hinojosa MD Primary Care Provider Reason for Visit Reason Comments Questions Encounter Details Date Type Department Care Team Description 08/06/2017 Telephone [place] Gagandeep Hinojosa MD Questions 1415 [facility] . 1415 [facility] [place] [address] [place] [address] [phone] (Wo rk) Social History Tobacco Use Types [...] on filedocumented in this encounter Care Teams Peanut Salter Relationship Specialty Start Date End Date Gagandeep Hinojosa MD PCP - General 05/17/12 1415 [facility] [place] [address] Vane Zarate Psychiatrist Psychiatry 03/22/12 [facility] Psychotherapist 08/04/17 documented as of this encounter
--- OUTSIDE RECORDS SUMMARY | 2022-02-14 14:58 | XMS_ITS | Encounter Summary ---
:1970 Author Organization [facility] Address [address] [address] Care Team Providers Name Role Phone Gagandeep Hinojosa MD Primary Care Provider Reason for Visit Reason Comments [facility] Face To Face Visit Encounter Details Date Type Department Care Team Description 10/06/2017 Care Coord Deborah Odom, [facility] Fa ce To Face Office Visit Medicine [facility] Visit 1415 [facility] 1415 [facility]. 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 I [...] feels is essential for his mental health. uRstam also stated that he is smoking under [...] is planning on going to see the tea tree farmer today at 9:15, and agreedto update RN Rn Intensive Care Unit, Judy Pittman, of the results of the [...] Primary documented in this encounter Care Teams Tool Adjuster Relationship Specialty Start Date End Date Gagandeep Hinojosa MD PCP - General 05/17/12 [facility]5 [facility] [place] [address] Vane Zarate Psychiatrist Psychiatry 03/22/12 [facility] Psychotherapist 08/04/17 [facility] CM Sheep Farmer 09/13/17 documented as of this encounter
--- OUTSIDE RECORDS SUMMARY | 2022-02-14 14:58 | XMS_ITS | Encounter Summary ---
:1970 Author Organization [employer] Address [address] [place] [address] Care Team Providers Name Role Phone Gagandeep Michaud MD Primary Care Provider Reason for Visit Reason Onset Date Comments Refill 09/21/2017 blood glucose (ONE T OUCH ULTRA BLUE) test strip Encounter Details Date Type Department Care Team Description 09/21/2017 Refill [facility] Gagandeep Michaud, Refil l (blood glucose Medicine (ONE TOUCH ULTRA BLUE) [address] [facility]) [place] [address] [place], [place] [address] (Wo rk) Social History Tobacco Use Types [...] requested refills for testing strips to [facility] pharmacy. Interface, Out Surescripts Prov Query [...] MICHAUD) Next scheduled visit: None Powered by [employer], Reference: [id number], 09/21/2017 2:39:52 PM CDT, Pool: MANUELNoni LANDAILL ([id number]) Evelin Stockton - 09/21/2017 2:39 PM CDT DIAGNOSIS CODE REQUEST: Request received for ICD-10 code to be listed on rx. Please advise, thank you. documented in this encounter Plan of Treatment Not on filedocumented as of this encounter Visit Diagnoses Diagnosis Uncontrolled type 2 diabetes mellitus wi th microalbuminuria, with long-term current use of insulin - Primary documented in this encounter Care Teams Cardiopulmonary Technologist Chief Relationship Specialty Start Date End Date Gagandeep Michaud MD PCP - General 05/17/12 1415 [facility] [place] [address] Vane Zarate Psychiatrsamantha Psychiatry 03/22/12 [facility] Psychotherapist 08/04/17 [facility] Dietetic Intern 09/13/17 documented as of this encounter
--- OUTSIDE RECORDS SUMMARY | 2022-02-14 14:58 | XMS_ITS | Encounter Summary ---
:1970 Author Organization [employer] Address [address] [place] [address] Care Team Providers Name Role Phone Gagandeep Hinojosa MD Primary Care Provider Reason for Visit Reason Comments [facility] Face To Face Visit Encounter Details Date Type Department Care Team Description 09/01/2017 Care Coord Judy Luke RN [facility] Face To Face Office Visit Medicine [address] [facility] Visit [address] [place] [address] Social History Tobacco Use Types Packs/Day Years [...] RN - 09/01/2017 11:00 AM CDT RN Film Rental Clerk Visit Pt: Timur Krishnamurthy Referred by: Gagandeep [...] is a joint visit with ERLIN Salas Film Rental Clerk. Mental Health Because of the complexity of Rustam's mental health, I recommended including ERLIN Salas Film Rental Clerk in our visits for additional support. Please [...] the meantime, Rustam has met with aninsurance metal drill operator plans to enroll in a supplemental Medicare [...] Since then, Rustam was seen at the [facility] last Tuesday and dx with cellulitis, [...] insulin documented in this encounter Care Teams Pig Casting Machine Operator Relationship Specialty Start Date End Date Gagandeep Hinojosa MD PCP - General 05/17/12 [address] [place] [address] Vane Zarate Psychiatrist Psychiatry 03/22/12 [facility] Psychotherapist 08/04/17 documented as of this encounter
--- OUTSIDE RECORDS SUMMARY | 2022-02-14 14:58 | XMS_ITS | Encounter Summary ---
:1970 Author Organization [employer] Address [address] [place] [address] Care Team Providers Name Role Phone Gagandeep Michaud MD Primary Care Provider Reason for Visit Reason Onset Date Comments Refill 07/22/2017 Insulin Syringe-Need le U-100 (INSULIN SYRINGE 31G X 5/16) 31G X 5/16 1 ML Encounter Details Date Type Department Care Team Description 07/22/2017 Refill [facility] Gagandeep Michaud, Refil l (Insulin Medicine Syringe-Needle U-[address] (INSULIN SYRINGE [address] [place] [address] [place] [address] 5/16) 31G X 5/16 1 ML) [phone] (Wo rk) Social History Tobacco Use Types [...] MICHAUD Ordering User: ABBIE MITCHELL Interface, Out [employer] Prov Query - 07/22/2017 2:39 PM CDT [...] visit: 08/15/2017 (in Family Practice) Powered by [employer], Reference: [id number], 07/22/2017 2:39:54 PM CDT, Pool: MANUEL REFILL ([id number]) documented in this encounter Plan of Treatment Not on filedocumented as of this encounter Visit Diagnoses Diagnosis Uncontrolled type 2 diabetes mellitus wi thout complication, with long-term current use of insulin documented in this encounter Care Teams Careers Adviser Relationship Specialty Start Date End Date Gagandeep Michaud MD PCP - General 05/17/12 6435 [facility] [place] [address] Vane Zarate Psychiatrist Psychiatry 03/22/12 documented as of this encounter
--- OUTSIDE RECORDS SUMMARY | 2022-02-14 14:58 | XMS_ITS | Encounter Summary ---
:1970 Author Organization [employer] Address [address], [place] [address] Care Team Providers Name Role Phone Gagandeep Hinojosa MD Primary Care Provider Reason for Visit Reason Comments [facility] Phone Visit Encounter Details Date Type Department Care Team Description 09/09/2017 Care Coord Phone [facility] Deborah Rodrigues, [facility] Phone Visit Medicine [facility] 1415 [facility] . [address] [place] [address] [place] [address] [phone] Social History Tobacco Use Types Packs/Day Years [...] this encounter Progress Notes Deborah Rodrigues, [facility] - 09/09/2017 8:00 AM CDT Staff Development Educator - Phone Call Contact with: Rustam Reason [...] prior to his next appointment. Shared plan: -[facility] appointment 09/13 at 8:00. Pt verbalized understanding and agreed with plan of care and follow up. documented in this encounter Plan of Treatment Not on filedocumented as of this encounter Visit Diagnoses Diagnosis Health retirement, active care coordinati on - Primary documented in this encounter Care Teams Asphalt Distributor Operator Relationship Specialty Start Date End Date Gagandeep Hinojosa MD PCP - General 05/17/12 [address] [place] [address] Vane Zarate Psychiatrist Psychiatry 03/22/12 [facility] Mental [facility] Psychotherapist 08/04/17 documented as of this encounter
--- OUTSIDE RECORDS SUMMARY | 2022-02-14 14:59 | XMS_ITS | Encounter Summary ---
:1970 Author Organization [employer] [facility] Address [address], [place] [address] Care Team Providers Name Role Phone Gagandeep Hinojosa MD Primary Care Provider Reason for Visit Reason Comments MEDICATION REACTION Encounter Details Date Type Department Care Team Description 04/26/2017 Nurse Triage [place] [facility] Gagandeep Hinojosa, MEDIC ATION REACTION Medicine 1415 [facility] . 1415 [facility] [place] [address] [place] [address] [phone] (Wo rk) Social History Tobacco Use Types [...] Pt informed ok to try the gum. SIFIED AD TAKER Gagandeep Hinojosa MD - 04/26/2017 4:04 PM CST Please call pt. OK to try Nicorette gum SIFIED AD TAKER Brielle Meza RN - 04/26/2017 3:41 PM [...] to answer question Protocols used: MEDICATION QUESTION [id number] Pt asking if he can use Nicotine Gum or patches as well as the Wellbutrin he is taking? Has had 12 days of not smoking until he bought cigarettes this morning. Has had no side effects from the Wellbutrin, aside from some blunting of his emotions. SIFIED AD TAKER Pamela Neves - 04/26/2017 3:14 PM CST [...] iscausing or if the nicotine gum caused? SIFIED AD TAKER documented in this encounter Plan of Treatment Not on filedocumented as of this encounter Visit Diagnoses Not on filedocumented in this encounter Care Teams Biopsychologist Relationship Specialty Start Date End Date Gagandeep Hinojosa MD PCP - General 05/17/12 [facility] [place] [address] Vane Zarate Psychiatrist Psychiatry 03/22/12 documented as of this encounter
--- OUTSIDE RECORDS SUMMARY | 2022-02-14 14:59 | XMS_ITS | Encounter Summary ---
:1970 Author Organization [employer] Address [address], [place] [address] Care Team Providers Name Role Phone Gagandeep Hinojosa MD Primary Care Provider Encounter Details Date Type Department Care Team Description 05/12/2017 Notes/Orders [facility] [address], Endocrinology MBBS [address] [facility] [address] [facility] [place] [address] [place] [address] [phone] Social History Tobacco Use Types Packs/Day Years [...] 9:11 AM CST patient was admitted to [facility] for suicidal ideation. REINA Barrera OR LANDSCAPE ARCHITECT documented in this encounter Plan of Treatment Not on filedocumented as of this encounter Visit Diagnoses Not on filedocumented in this encounter Care Teams Machine Ceramic Coater Relationship Specialty Start Date End Date Gagandeep Hinojosa MD PCP - General 05/17/12 [address] [place] [address] Vane Zarate Psychiatrist Psychiatry 03/22/12 documented as of this encounter
--- OUTSIDE RECORDS SUMMARY | 2022-02-14 14:59 | XMS_ITS | Encounter Summary ---
:1970 Author Organization [employer] Address [address] [place] [address] Care Team Providers Name Role Phone Gagandeep Hinojosa MD Primary Care Provider Reason for Visit Reason Comments Adverse Reaction wellbutrin Encounter Details Date Type Department Care Team Description 04/29/2017 Office Visit Gagandeep Stormani a ([facility]) (Primary Dx); Romario Rubio MD Tobacco use disorder; [address] [facility] Bipolar I disorder ([facility]) [place] [address] Ave [phone] [place] [id number] Social History Tobacco Use Types Packs/Day Years [...] Comments Blood Pressure 100/68 04/29/2017 10:32 AM SALAD COUNTER ATTENDANT Pulse 142 04/29/2017 10:32 AM SALAD COUNTER ATTENDANT Temperature - - Respiratory Rate - - Oxygen Saturation - - Inhaled Oxygen Concentration - - Weight - - Height - - Body Mass Index - - documented in this encounter Progress Notes Gagandeep Hinojosa MD - 04/29/2017 10:30 AM CST ICD-10-CM 1. Hypomania (HRC) F30.8 2. Tobacco use disorder ([facility]) F17.200 3. Bipolar I disorder ([facility]) F31.9 CHIEF COMPLAINT: Chief Complaint Patient presents [...] List Diagnosis Date Noted ??? Tobacco abuse ([facility]) 02/24/2016 ??? Tinea versicolor 07/18/2015 ??? Diabetic eye exam ([facility]) 12/12/2013 Overview Note: Eye exam done at [facility] on 12/12/13. Mild diabetic retinopathy in right eye. ??? Tobacco use disorder ([facility]) 10/26/2012 ??? Anemia 05/02/2012 Overview Note: Anemia, unspecified ??? Health halfway, active care coordination 03/22/2012 Overview Note: Real Estate Administrator: JOSETTE Yippee [phone] Care coordination focus: T2DM, financial resources Living situation: lives with spouse Important notes: SSDI, significant insulin resistance, uses Relion insulin, commonly reaches Medicare Coverage Gap See care plan under Chart Review > [facility] > [facility]B [facility] PLAN REPORT ??? Microalbuminuria 02/04/2012 ??? [place], old ([facility]) 09/16/2011 ??? [...] [facility]ICAL [facility]ENTER) 09/15/2005 Overview Note: LW Onset: [id number] ; Bipolar I Dis FAMILY HISTORY OR [...] Follow-up: Over the weekend of crisis develops. D COUNTER ATTENDANT Gagandeep Hinojosa MD - 04/29/2017 10:30 AM CST LMTCB D COUNTER ATTENDANT documented in this encounter Plan of Treatment Not on filedocumented as of this encounter Visit Diagnoses Diagnosis Hypomania (HRC) - Primary Bipolar I disorder, single manic episode , unspecified Tobacco use disorder (HRC) Tobacco use disorder Bipolar I disorder (HRC) Bipolar I disorder, most recent episode (or current) unspecified documented in this encounter Care Teams Email Marketing Manager Relationship Specialty Start Date End Date Gagandeep Hinojosa MD PCP - General 05/17/[address] [place] [address] [place] [address] Vane Zarate Psychiatrist Psychiatry 03/22/12 documented as of this encounter
--- OUTSIDE RECORDS SUMMARY | 2022-02-14 14:59 | XMS_ITS | Encounter Summary ---
:1970 Author Organization [email or web address] Address [address] [place] [address] Care Team Providers Name Role Phone Gagandeep Michaud MD Primary Care Provider Reason for Visit Reason Onset Date Comments Refill 04/13/2017 insulin regular (NOV VONDA R) 100 UNIT/ML injection Encounter Details Date Type Department Care Team Description 04/13/2017 Refill [place] [facility] Gagandeep Michaud, Refrose mary l (insulin regular Medicine MD (NOVOLIN R) 100 UNIT/ML [address] injection) [place] [address] [place] [address] (Wo rk) Social History Tobacco Use Types [...] Provider: GAGANDEEP MICHAUD Ordering User: ABBIE MITCHELL LY PRESERVATION WORKER Interface, Out [employer] Query - 04/13/2017 1:09 PM CST insulin [...] : 11.8 % on 02/16/2017 Powered by [employer], Reference: [id number], 04/13/2017 1:09:42 PM FAMILY PRESERVATION WORKER, Pool: MANUEL REFILL ([id number]) LY PRESERVATION WORKER documented in this encounter Plan of Treatment Not on filedocumented as of this encounter Visit Diagnoses Diagnosis Uncontrolled type 2 diabetes mellitus wi thout complication, with long-term current use of insulin documented in this encounter Care Teams Test Rider Relationship Specialty Start Date End Date Gagandeep Michaud MD PCP - General 05/17/12 1415 [facility] [place] [address] Vane Zarate Psychiatrist Psychiatry 03/22/12 documented as of this encounter
--- OUTSIDE RECORDS SUMMARY | 2022-02-14 14:59 | XMS_ITS | Encounter Summary ---
:1970 Author Organization [employer] Address [address] [address] Care Team Providers Name Role Phone Gagandeep Hinojosa MD Primary Care Provider Reason for Referral Consult/Transfer Care (Routine) - Closed Specialty Diagnoses / Procedures Referred By Contact Refer red To Contact Diagnoses Uncontrolled type 2 diabetes mellitus with complication, with long-term current use of insulin Joce Foster MD [address] [facility] [place] [address] Referral ID Status Reason Start Date Expiration Date Visits Requ ested Visits Authorized [id number] Closed 05/17/2017 08/16/2018 1 1 Scheduling Instructions If scheduling assistance is needed, namrata dorman inquire with the medical office staff upon exiting your appointment or contact the ordering clinic for recommended locations. This recommended service/s may not be co tri by your insurance coverage. To find out your specific benefit coverage, please c all the number on your insurance card. RT FIREMAN Reason for Visit Reason Comments Diabetes Encounter Details Date Type Department Care Team Description 05/17/2017 Office Visit Joce Daniels lled type 2 diabetes mellitus with complication, with long-term current use of insulin (HRC) (Primary Dx); Romario Juárez MD Essential hypertension; [address] [facility] Hyperlip idemia LDL goal < 70; [address] ASHD (arteriosclerotic heart disease); [place] [address] [place] Bipolar I disorder (HRC); [phone] [id number] Tobacco use disorder Social History Tobacco Use [...] Comments Blood Pressure 140/86 05/17/2017 2:29 PM RETORT FIREMAN Pulse 106 05/17/2017 2:29 PM RETORT FIREMAN Temperature - - Respiratory Rate - - Oxygen Saturation - - Inhaled Oxygen Concentration - - Weight 105.2 kg (232 lb) 05/17/2017 2:28 PM RETORT FIREMAN Height - - Body Mass Index 33.29 04/05/2017 3:18 PM RETORT FIREMAN documented in this encounter Progress Notes Joce Foster MD - 05/17/2017 12:00 PM CST NAME: SHARLENE VARNER MR#: [id number] CSN: [id number] AUTHENTICATING CLINICIAN: Joce Foster MD CONFIRM #: [id number] LOC: 1202 CLINIC PROGRESS NOTE DATE OF [...] 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 MEDS: Reviewed and updated in [...] future if interested. MJW:MEDWendy C: CONFIRM #: [id number] RT FIREMAN documented in this encounter Plan of Treatment Not on filedocumented as of this encounter Visit Diagnoses Diagnosis Uncontrolled type 2 diabetes mellitus wi th complication, with long-term current use of insulin - Primary Essential hypertension (HRC) Unspecified essential hypertension Hyperlipidemia LDL goal < 70 Other and unspecified hyperlipidemia ASHD (arteriosclerotic heart disease) ([facility]) Coronary atherosclerosis of unspecified type of vessel, shawnee or graft Bipolar I disorder (HRC) Bipolar I disorder, most recent episode (or current) unspecified Tobacco use disorder (HRC) Tobacco use disorder documented in this encounter Care Teams Rocket Scientist Relationship Specialty Start Date End Date Gagandeep Hinojosa MD PCP - General 05/17/12 [facility] [place] [address] Vane Zarate Psychiatrist Psychiatry 03/22/12 documented as of this encounter
--- OUTSIDE RECORDS SUMMARY | 2022-02-14 14:59 | XMS_ITS | Encounter Summary ---
:1970 Author Organization [employer] [facility] Address [address] [place] [address] Care Team Providers Name Role Phone Gagandeep Hinojosa MD Primary Care Provider Reason for Visit Reason Comments SMOKING CESSATION Encounter Details Date Type Department Care Team Description 04/05/2017 Office Visit Gagandeep Storm Tobacco use disorder Romario Rubio MD (Primary Dx) [address] [facility] . [address] [place] [address] Ave [phone] [place], [place] [address] Social History Tobacco Use [...] Comments Blood Pressure 134/80 04/05/2017 3:18 PM MEDICAID SERVICE COORDINATOR Pulse - - Temperature - - Respiratory Rate - - Oxygen Saturation - - Inhaled Oxygen Concentration - - Weight 100.7 kg (222 lb) 04/05/2017 3:18 PM MEDICAID SERVICE COORDINATOR Height 177.8 cm (5' 10) 04/05/2017 3:18 PM MEDICAID SERVICE COORDINATOR Body Mass Index 31.85 04/05/2017 3:18 PM MEDICAID SERVICE COORDINATOR documented in this encounter Progress Notes Gagandeep Hinojosa MD - 04/05/2017 3:30 PM CST ICD-10-CM 1. Tobacco use disorder ([facility]) F17.200 doxycycline monohydrate (ADOXA) 100 MG [...] 12/12/2013 Overview Note: Eye exam done at [facility] on 12/12/13. Mild diabetic retinopathy in right eye. ??? Tobacco use disorder ([facility]) 10/26/2012 ??? Anemia 05/02/2012 Overview Note: Anemia, unspecified ??? [facility] [place], active care coordination 03/22/2012 Overview Note: Mobile Home Laborer: JOSETTE Yip [phone] Care coordination focus: T2DM, financial resources Living situation: lives with spouse Important notes: SSDI, significant insulin resistance, uses Relion insulin, commonly reaches Medicare Coverage Gap See care plan under Chart Review > [facility] Reports > [facility]B [facility] C[facility] PL[facility] REPORT ??? Microalbuminuria 02/04/2012 ??? [place], old ([facility]) 09/16/2011 ??? History [...] [facility]) 09/15/2005 Overview Note: LW Onset: 30Ulx14 ; Bipolar I Dis FAMILY HISTORY OR [...] its administration and expectations Follow-up: 3-4 weeks CAID SERVICE COORDINATOR documented in this encounter Plan of Treatment Not on filedocumented as of this encounter Visit Diagnoses Diagnosis Tobacco use disorder (HRC) - Primary Tobacco use disorder documented in this encounter Care Teams Mechanic Chief Relationship Specialty Start Date End Date Gagandeep Hinojosa MD PCP - General 05/17/12 [facility] [place] [address] Vane Zarate Psychiatrist Psychiatry 03/22/12 documented as of this encounter
--- OUTSIDE RECORDS SUMMARY | 2022-02-14 14:59 | XMS_ITS | Encounter Summary ---
:1970 Author Organization [facility] [employer] Address [address] [place] [address] Care Team Providers Name Role Phone Gagandeep Hinojosa MD Primary Care Provider Encounter Details Date Type Department Care Team Description 05/17/2017 Lab Visit [facility] Uncontrolled type [address] mellitus with diabetic [place] [address] polyneuropathy, with [phone] long-term curre nt use of insulin (HRC) [...] 2 Results for this HEMOGLOBIN (HB A1C) STATION EXAMINER diabetes mellitus pro cedure are in with diabetic the results polyneuropathy, with section . long-term current use of insulin (HRC) EXTRA SERUM SEPARATOR STAT 05/17/2017 1:49 PM Results for this TUBE (YELLOW) STATION EXAMINER procedure are in the results section. documented in this encounter Results (ABNORMAL) POCT Glycosylated Hemoglobin (HB A1C) (05/17/2017 1:59 PM STATION EXAMINER) [facility] gist Method Time Signature Glycosolated HGB 9.1 [...] Volume Laterality 05/17/2017 1:59 PM 8 1:58 STATION EXAMINER PM STATION EXAMINER Narrative PN SOFT - 05/17/2017 2:15 PM STATION EXAMINER Performed at [facility], [address] [place] [address] CLIA number [id number] Gagandeep Hinojosa MD LAB_1 Performing Organization Address [facility] Phon e Number PN SOFT [address] [place] [address] Extra Serum Separator Tube (yellow) (05/17/2017 1:49 PM STATION EXAMINER) athologist Signature Extra SST Top Drawn PN SOFT Drawn Specimen (Source) Anatomical Location Collection Method / Collectio n Time Received Time / Laterality Volume Narrative PN SOFT - 05/17/2017 1:49 PM STATION EXAMINER Performed at [facility], [address] [place] [address] CLIA number [id number] Gagandeep Hinojosa MD LAB_1 Performing Organization Address City/[facility] Phon e Number PN SOFT [address] [place] [address] [phone] documented in this encounter Visit Diagnoses Diagnosis Uncontrolled type 2 diabetes mellitus wi th diabetic polyneuropathy, with long-term current use of insulin documented in this encounter Care Teams Car Wash Attendant Relationship Specialty Start Date End Date Gagandeep Hinojosa MD PCP - General 05/17/[address] [place] [address] Vane Zarate Psychiatrist Psychiatry 03/22/12 documented as of this encounter
--- OUTSIDE RECORDS SUMMARY | 2022-02-14 14:59 | XMS_ITS | Encounter Summary ---
:1970 Author Organization [employer] Address [address] [place] [address] Care Team Providers Name Role Phone Gagandeep Hinojosa MD Primary Care Provider Reason for Visit Reason Comments SLEEP PROBLEM--ED Medication Problems Encounter Details Date Type Department Care Team Description 04/28/2017 Nurse Triage Gagandeep Storm SLEEP VT OBLEM--ED; Romario Rubio MD Medication Problems [address] [facility] [place] [address] Ave [phone] [place] [address] Social History Tobacco Use Types [...] daily living) Protocols used: ANXIETY AND PANIC [id number], BIPOLAR DISORDER (MANIC DEPRESSION)-ADULT-AH Spoke to patient. [...] 04/29/2017 10:30 AM Gagandeep Hinojosa MD [facility] MANUEL RY GOODS WORKER Vivinene Gifford - 04/28/2017 10:55 AM CST Pt calling to speak to a nurse about concerns with sleeping problems, pt States recently started [employer] SR And could be contributing to concerns., please assist. RY GOODS WORKER documented in this encounter Plan of Treatment Not on filedocumented as of this encounter Visit Diagnoses Not on filedocumented in this encounter Care Teams Rag Washer Relationship Specialty Start Date End Date Gagandeep Hinojosa MD PCP - General 05/17/12 1415 [facility] [place] [address] Vane Zarate Psychiatrsamantha Psychiatry 03/22/12 documented as of this encounter
--- OUTSIDE RECORDS SUMMARY | 2022-02-14 14:59 | XMS_ITS | Encounter Summary ---
:1970 Author Organization [employer] Address [address], [place] [address] Care Team Providers Name Role Phone Gagandeep Hinojosa MD Primary Care Provider Reason for Visit Reason Comments COUGH Encounter Details Date Type Department Care Team Description 04/04/2017 Nurse Triage [facility] Gagandeep Hinojosa MD COUGH 1415 [facility] . 1415 [facility] [place] [address] [place] [address] [phone] (Wo rk) Social History Tobacco Use Types [...] (SAME) Protocols used: INFECTION ON ANTIBIOTIC FOLLOW-UP [id number] Patient calling and transferred to [facility] via ER line. States he was seen at [facility] over the weekend for his cough [...] 04/05/2017 3:30 PM Gagandeep Hinojosa MD [facility] MANUEL WARE ENGINEER [employer] documented in this encounter Plan of Treatment Not on filedocumented as of this encounter Visit Diagnoses Not on filedocumented in this encounter Care Teams Bobbin Sorter Relationship Specialty Start Date End Date Gagandeep iHnojosa MD PCP - General 05/17/12 [facility] [place] [address] Vane Zarate Psychiatrist Psychiatry 03/22/12 documented as of this encounter
--- OUTSIDE RECORDS SUMMARY | 2022-02-14 14:59 | XMS_ITS | Encounter Summary ---
:1970 Author Organization [employer] Address [address] [place] [address] Care Team Providers Name Role Phone Gagandeep Hinojosa MD Primary Care Provider Encounter Details Date Type Department Care Team Description 02/16/2017 Lab Visit [facility] Uncontrolled type 2 diabetes mellitus without complication, with long-term current use of insulin (HRC) [E11.65,Z79.4]; 1415 [facility] . Hyperlipidemia, unspecified hyperlipidemia type (HRC) [E78.5] [place] [address] Social History Tobacco Use Types Packs/Day Years [...] in NEEDED) hyperlipidemia type the resu lts ([facility]) [E78.5] section. EXTRA SERUM STAT 02/16/2017 10:51 Results for this SEPARATOR TUBE AM CDT procedure are in (YELLOW) the results section. documented in this encounter Results (ABNORMAL) Microalb/Creat Ratio (02/16/2017 11:01 AM CDT) [facility] [employer] Method Time Signature Microalbumin 124.6 mg/L PN SOFT Urine U Creat Random 78 mg/dL PN SOFT Microalbumin/Crea 159.7 (H) 0.0 - PN SOFT tinine Ratio 30.0 Specimen Anatomical Collection Method Collection Time Receive d Time (Source) Location / / Volume Laterality Urine specimen 02/16/2017 11:01 7 2:41 (specimen) AM CDT PM CDT Narrative PN SOFT - 02/16/2017 3:37 PM CDT Performed at [facility], [facility] [address] [place] [address] CLIA number [id number] Gagandeep Hinojosa MD LAB_1 Performing Organization Address City/State/ZIP Code Phon e Number PN SOFT [address] [place] [address] (ABNORMAL) Lipid Panel and Direct LDL(If Needed) (02/16/2017 10:54 AM CDT) [facility] [employer] Method Time Signature Cholesterol 179 0 - [...] - 02/16/2017 3:18 PM CDT Performed at [facility], [address] [place] [address] CLIA number [id number] Gagandeep Hinojosa MD LAB_1 Performing Organization Address [facility] Phon e Number PN SOFT [address] [place] [address] (ABNORMAL) POCT Glycosylated Hemoglobin (HB A1C) (02/16/2017 [...] - 02/16/2017 11:05 AM CDT Performed at [facility], [address] [place] [address] CLIA number [id number] Gagandeep Hinojosa MD LAB_1 Performing Organization Address [facility] Phon e Number PN SOFT [address] [place] [address] Extra Serum Separator Tube (yellow) (02/16/2017 10:51 AM CDT) athologist Signature Extra SST Top Drawn PN SOFT Drawn Specimen (Source) Anatomical Location Collection Method / Collectio n Time Received Time / Laterality Volume Narrative PN SOFT - 02/16/2017 10:51 AM CDT Performed at [facility], [address] [place] [address] CLIA number [id number] Gagandeep Hinojosa MD LAB_1 Performing Organization Address [facility] Phon e Number PN SOFT [address] [place] [address] documented in this encounter Visit Diagnoses Diagnosis Uncontrolled type 2 diabetes mellitus wi thout complication, with long-term current use of insulin (HRC) [E11.65,Z79.4] Hyperlipidemia, unspecified hyperlipidem ia type (HRC) [E78.5] documented in this encounter Care Teams Retoucher Photoengraving Relationship Specialty Start Date End Date Gagandeep Hinojosa MD PCP - General 05/17/12 [facility] [place] [address] Vane Zarate Psychiatrsamantha Psychiatry 03/22/12 documented as of this encounter
--- OUTSIDE RECORDS SUMMARY | 2022-02-14 14:59 | XMS_ITS | Encounter Summary ---
:1970 Author Organization [facility] Address [address] [place] [address] Care Team Providers Name Role Phone Gagandeep Hinojosa MD Primary Care Provider Encounter Details Date Type Department Care Team Description 04/29/2017 Lab Visit [facility] Need for prophylactic [address] [place] [id number] Social History Tobacco Use Types Packs/Day Years [...] 11:40 Need for Results for this AM CAUSTIC CRESYLATE SHIFT SUPERINTENDENT prophylactic procedure are i n chemotherapy the results section. COMPLETE BLOOD Routine 04/29/2017 11:40 Need for Results f or this COUNT-W/DIFF AM CAUSTIC CRESYLATE SHIFT SUPERINTENDENT prophylactic procedure are i n chemotherapy the results section. DIFFERENTIAL Routine 04/29/2017 11:40 Results for this AM CAUSTIC CRESYLATE SHIFT SUPERINTENDENT procedure are i n the results section. VALPROIC ACID Routine 04/29/2017 11:40 Need for Results fo r this (DEPAKENE) AM CAUSTIC CRESYLATE SHIFT SUPERINTENDENT prophylactic procedure are i n chemotherapy the results section. AMMONIA Routine 04/29/2017 11:40 Need for Results for this AM CAUSTIC CRESYLATE SHIFT SUPERINTENDENT prophylactic procedure are i n chemotherapy the results section. HGB A1C Routine 04/29/2017 11:40 Need for Results for this AM CAUSTIC CRESYLATE SHIFT SUPERINTENDENT prophylactic procedure are i n chemotherapy the results section. ALT (SGPT) Routine 04/29/2017 11:40 Need for Results for this AM CAUSTIC CRESYLATE SHIFT SUPERINTENDENT prophylactic procedure are i n chemotherapy the results section. AST Routine 04/29/2017 11:40 Need for Results for this AM CAUSTIC CRESYLATE SHIFT SUPERINTENDENT prophylactic procedure are i n chemotherapy the results section. SODIUM Routine 04/29/2017 11:40 Need for Results for this AM CAUSTIC CRESYLATE SHIFT SUPERINTENDENT prophylactic procedure are i n chemotherapy the results section. POTASSIUM Routine 04/29/2017 11:40 Need for Results for this AM CAUSTIC CRESYLATE SHIFT SUPERINTENDENT prophylactic procedure are i n chemotherapy the results section. CALL LIST QUESTIONS Routine 04/29/2017 11:33 Need for Resu lts for this AM CAUSTIC CRESYLATE SHIFT SUPERINTENDENT prophylactic procedure are i n chemotherapy the results section. documented in this encounter Results (ABNORMAL) Differential (04/29/2017 11:40 AM CAUSTIC CRESYLATE SHIFT SUPERINTENDENT) Analysis Performed At Patho logist Time Signature [...] / Volume Laterality 04/29/2017 11:40 04/29/2017 AM CAUSTIC CRESYLATE SHIFT SUPERINTENDENT 11:40 AM CAUSTIC CRESYLATE SHIFT SUPERINTENDENT Narrative PN SOFT - 04/29/2017 11:44 AM CAUSTIC CRESYLATE SHIFT SUPERINTENDENT Performed at [facility], [address] [place], [place] [id number] CLIA number [id number] .Results faxed to [phone], 04/30/2017,07:05, by [facility].Results faxed to ?? Dr. Vane Zarate ?? [phone], 04/29/2017,11:46, by [facility] Vane Zarate MD LAB_1 Performing Organization Address City/State/ZIP Code Phon e Number PN SOFT [address] [place] [address] Ammonia (04/29/2017 11:40 AM CAUSTIC CRESYLATE SHIFT SUPERINTENDENT) athologist Signature Ammonia, Blood 30 0 - 44 PN SOFT umol/L Specimen Anatomical Collection Method Collection Time Receive d Time (Source) Location / / Volume Laterality 04/29/2017 11:40 04/29/2017 2:56 AM CAUSTIC CRESYLATE SHIFT SUPERINTENDENT PM CAUSTIC CRESYLATE SHIFT SUPERINTENDENT Narrative PN SOFT - 04/29/2017 4:09 PM CAUSTIC CRESYLATE SHIFT SUPERINTENDENT Performed at [facility], [address] [id number] CLIA number [id number] .Results faxed to [phone], 04/30/2017,07:05, by GIOVANY.Results faxed to ?? Dr. Vane Zarate ?? [phone], 04/29/2017,11:46, by [facility] Joey Zarate MD LAB_1 Performing Organization Address [facility] Phon e Number PN SOFT [address] [place] [address] Potassium (04/29/2017 11:40 AM CAUSTIC CRESYLATE SHIFT SUPERINTENDENT) athologist Signature Potassium 5.0 3.5 - 5.2 PN SOFT mmol/L Specimen Anatomical Collection Method Collection Time Receive d Time (Source) Location / / Volume Laterality 04/29/2017 11:40 04/29/2017 2:30 AM CAUSTIC CRESYLATE SHIFT SUPERINTENDENT PM CAUSTIC CRESYLATE SHIFT SUPERINTENDENT Narrative PN SOFT - 04/29/2017 3:23 PM CAUSTIC CRESYLATE SHIFT SUPERINTENDENT Performed at [facility], [address] [place] [address] CLIA number [id number] .Results faxed to [phone], 04/30/2017,07:05, by GIOVANY.Results faxed to ?? Dr. Vane Zarate ?? [phone], 04/29/2017,11:46, by [facility] Joey Zarate MD LAB_1 Performing Organization Address [facility] Phon e Number PN SOFT [address] [place] [address] (ABNORMAL) Sodium (04/29/2017 11:40 AM CAUSTIC CRESYLATE SHIFT SUPERINTENDENT) athologist Signature Sodium 135 (L) 136 - 145 PN SOFT mmol/L Specimen Anatomical Collection Method Collection Time Receive d Time (Source) Location / / Volume Laterality 04/29/2017 11:40 04/29/2017 2:30 AM CAUSTIC CRESYLATE SHIFT SUPERINTENDENT PM CAUSTIC CRESYLATE SHIFT SUPERINTENDENT Narrative PN SOFT - 04/29/2017 3:23 PM CAUSTIC CRESYLATE SHIFT SUPERINTENDENT Performed at [facility], [address] [place] [address] CLIA number [id number] .Results faxed to [phone], 04/30/2017,07:05, by GIOVANY.Results faxed to ?? Dr. Vane Zarate ?? [phone], 04/29/2017,11:46, by [facility] Joey Zarate MD LAB_1 Performing Organization Address [facility] Phon e Number PN SOFT [address] [place] [address] Valproic Acid (Depakene) (04/29/2017 11:40 AM CAUSTIC CRESYLATE SHIFT SUPERINTENDENT) Analysis Performed At [facility] Time Signature Date Last Dose apr 29 2017 PN SOFT Valproic Acid Time Last Dose 8:0 PN SOFT Valproic Acid Valproic 51 50 - 100 PN SOFT Acid/Depakene ug/mL (Valp) Specimen Anatomical Collection Method Collection Time Receive d Time (Source) Location / / Volume Laterality 04/29/2017 11:40 04/29/2017 3:01 AM CAUSTIC CRESYLATE SHIFT SUPERINTENDENT PM CAUSTIC CRESYLATE SHIFT SUPERINTENDENT Narrative PN SOFT - 04/29/2017 3:24 PM CAUSTIC CRESYLATE SHIFT SUPERINTENDENT Performed at [facility], [address] [place] [address] CLIA number [id number] .Results faxed to [phone], 04/30/2017,07:05, by GIOVANY.Results faxed to ?? Dr. Vane Zarate ?? [phone], 04/29/2017,11:46, by [facility] Joey Zarate MD LAB_1 Performing Organization Address [facility] Phon e Number PN SOFT [address] [place] [address] (ABNORMAL) Creatinine / GFR (04/29/2017 11:40 AM CAUSTIC CRESYLATE SHIFT SUPERINTENDENT) Analysis Performed At Patho logist Time Signature [...] Volume Laterality 04/29/2017 11:40 04/29/2017 2:30 AM CAUSTIC CRESYLATE SHIFT SUPERINTENDENT PM CAUSTIC CRESYLATE SHIFT SUPERINTENDENT Narrative PN SOFT - 04/29/2017 3:23 PM CAUSTIC CRESYLATE SHIFT SUPERINTENDENT Performed at [facility], [address] [place], [place] [address] CLIA number [id number] .Results faxed to [phone], 04/30/2017,07:05, by GIOVANY.Results faxed to ?? Dr. Vane Zarate ?? [phone], 04/29/2017,11:46, by [facility] Joey Zarate MD LAB_1 Performing Organization Address City/State/ZIP Code Phon e Number PN SOFT [address] [place] [address] (ABNORMAL) Hgb A1c (04/29/2017 11:40 AM CAUSTIC CRESYLATE SHIFT SUPERINTENDENT) athologist Signature HGB A1C 9.7 (H) 4.0 - 5.6 % PN SOFT Specimen Anatomical Collection Method Collection Time Receive d Time (Source) Location / / Volume Laterality 04/29/2017 11:40 04/29/2017 3:01 AM CAUSTIC CRESYLATE SHIFT SUPERINTENDENT PM CAUSTIC CRESYLATE SHIFT SUPERINTENDENT Narrative PN SOFT - 04/29/2017 10:26 PM CAUSTIC CRESYLATE SHIFT SUPERINTENDENT Performed at [facility], [facility] [place] [address] CLIA number [id number] .Results faxed to [phone], 04/30/2017,07:05, by [facility]OVANY.Results faxed to ?? Dr. Vane Zarate ?? [phone], 04/29/2017,11:46, by [facility] Joey Zarate MD LAB_1 Performing Organization Address [facility] Phon e Number PN SOFT [address] [place] [address] Alanine Aminotransferase - ALT (SGPT) (04/29/2017 11:40 AM CAUSTIC CRESYLATE SHIFT SUPERINTENDENT) [facility] gist Method Time Signature Alanine 17 9 - 55 PN SOFT Aminotransferase U/L Specimen Anatomical Collection Method Collection Time Receive d Time (Source) Location / / Volume Laterality 04/29/2017 11:40 04/29/2017 2:30 AM CAUSTIC CRESYLATE SHIFT SUPERINTENDENT PM CAUSTIC CRESYLATE SHIFT SUPERINTENDENT Narrative PN SOFT - 04/29/2017 3:23 PM CAUSTIC CRESYLATE SHIFT SUPERINTENDENT Performed at [facility], [address] [place] [address] CLIA number [id number] .Results faxed to [phone], 04/30/2017,07:05, by GIOVANY.Results faxed to ?? Dr. Vane Zarate ?? [phone], 04/29/2017,11:46, by [facility] Joey Zarate MD LAB_1 Performing Organization Address [facility] Phon e Number PN SOFT [address] [place] [address] Aspartate Aminotransferase - AST (04/29/2017 11:40 AM CAUSTIC CRESYLATE SHIFT SUPERINTENDENT) [facility] Method Time Signature Aspartate 21 10 - 40 PN SOFT Aminotransferase U/L Specimen Anatomical Collection Method Collection Time Receive d Time (Source) Location / / Volume Laterality 04/29/2017 11:40 04/29/2017 2:30 AM CAUSTIC CRESYLATE SHIFT SUPERINTENDENT PM CAUSTIC CRESYLATE SHIFT SUPERINTENDENT Narrative PN SOFT - 04/29/2017 3:23 PM CAUSTIC CRESYLATE SHIFT SUPERINTENDENT Performed at [facility], [facility] [address] [place] [address] CLIA number [id number] .Results faxed to [phone], 04/30/2017,07:05, by GIOVANY.Results faxed to ?? Dr. Vane Zarate ?? [phone], 04/29/2017,11:46, by [facility] Joey Zarate MD LAB_1 Performing Organization Address City/[facility] Code Phon e Number PN SOFT [address] [place] [address] CBC - Complete Blood Count-W/Diff (04/29/2017 11:40 AM CAUSTIC CRESYLATE SHIFT SUPERINTENDENT) athologist Signature White Blood Cell 8.8 3.8 [...] / Volume Laterality 04/29/2017 11:40 04/29/2017 AM CAUSTIC CRESYLATE SHIFT SUPERINTENDENT 11:40 AM CAUSTIC CRESYLATE SHIFT SUPERINTENDENT Narrative PN SOFT - 04/29/2017 11:44 AM CAUSTIC CRESYLATE SHIFT SUPERINTENDENT Performed at [facility], [address] [place] [address] CLIA number [id number] .Results faxed to [phone], 04/30/2017,07:05, by [facility]OVANY.Results faxed to ?? Dr. Vane Zarate ?? [phone], 04/29/2017,11:46, by [facility] Joey Zarate MD LAB_1 Performing Organization Address City/[facility] Phon e Number PN SOFT [address] [place] [address] Call List Questions (04/29/2017 11:33 AM CAUSTIC CRESYLATE SHIFT SUPERINTENDENT) athologist Signature Call Back Done PN SOFT Documented Specimen (Source) Anatomical Collection Method Collection Time Re ceived Time Location / / Volume Laterality 04/29/2017 11:33 AM CAUSTIC CRESYLATE SHIFT SUPERINTENDENT Narrative PN SOFT - 04/29/2017 11:33 AM CAUSTIC CRESYLATE SHIFT SUPERINTENDENT [place] [address] CLIA number [id number] Joey Zarate MD LAB_1 Performing Organization Address City/State/ZIP Code Phon e Number PN SOFT [address] [place] [address] documented in this encounter Visit Diagnoses Diagnosis Need for prophylactic chemotherapy Need for other prophylactic chemotherapy documented in this encounter Care Teams Melangeur Operator Relationship Specialty Start Date End Date Gagandeep Hinojosa MD PCP - General 05/17/12 [address] [place] [address] Vane Zarate Psychiatrsamantha Psychiatry 03/22/12 documented as of this encounter
--- OUTSIDE RECORDS SUMMARY | 2022-02-14 14:59 | XMS_ITS | Encounter Summary ---
:1970 Author Organization [facility] Address [address] [address] Care Team Providers Name Role Phone Gagandeep Hinojosa MD Primary Care Provider Reason for Visit Reason Comments [facility] Phone Visit HRR Encounter Details Date Type Department Care Team Description 05/10/2017 Care Coord Phone Reji Turner [facility] Phone Visit (HRR) Medicine Franck RN [address] [place] [address] [place], [place] [phone] Social History Tobacco Use Types Packs/Day Years [...] need for renewed [facility] involvement. Thank you. TTING MACHINE OPERATOR documented in this encounter Plan of Treatment Not on filedocumented as of this encounter Visit Diagnoses Not on filedocumented in this encounter Care Teams Territory Sales Executive Relationship Specialty Start Date End Date Gagandeep Hinojosa MD PCP - General 05/17/12 14[address] [facility] [place] [address] Vane Zarate Psychiatrist Psychiatry 03/22/12 documented as of this encounter
--- OUTSIDE RECORDS SUMMARY | 2022-02-14 14:59 | XMS_ITS | Encounter Summary ---
:1970 Author Organization [facility] Address [address] [place] [address] Care Team Providers Name Role Phone Gagandeep Michaud MD Primary Care Provider Reason for Visit Reason Comments Refill buPROPion (WELLBUTRIN SR) 15 0 MG 12 hour release tablet [Pharmacy Med Name: BUPROPION SR 150MG TABLETS ( 12 H)] Encounter Details Date Type Department Care Team Description 04/05/2017 Refill Gagandeep Storm Refil l (buPROPion Medicine (WELLBUTRIN SR) [address] 12 hour release tablet [place] [address] [place] [address] [Pharmacy Med Name: [id number] (Wo rk) BUPROPION SR 150MG TABLETS ( [...] GAGANDEEP MICHAUD Ordering User: LEN ROWELL ER MAN Interface, Out Frengo Query - 04/05/2017 4:16 PM CST buPROPion [...] 80 mm Hg on 04/05/2017 Powered by [email or web address], Reference: [id number], 04/05/2017 4:16:49 PM ROLLER MAN, Pool: MANUEL LANDAILL ([id number]) ER MAN documented in this encounter Plan of Treatment Not on filedocumented as of this encounter Visit Diagnoses Diagnosis Tobacco use disorder (HRC) Tobacco use disorder documented in this encounter Care Teams Optical Fabricator Relationship Specialty Start Date End Date Gagandeep Michaud MD PCP - General 05/17/12 [facility] [place] [address] Vane Zarate Psychiatrist Psychiatry 03/22/12 documented as of this encounter
--- OUTSIDE RECORDS SUMMARY | 2022-02-14 14:59 | XMS_ITS | Encounter Summary ---
:1970 Author Organization [employer] Address [address] [place] [address] Care Team Providers Name Role Phone Gagandeep Hinojosa MD Primary Care Provider Encounter Details Date Type Department Care Team Description 04/29/2017 Notes/Orders [facility] Vane Zarate, Need for prophylactic [address] Bonds MD chemotherapy ([place] [address]) [phone] [address] [place], [place] [address] Social History Tobacco Use Types Packs/Day Years [...] this encounter Results Ammonia (04/29/2017 11:40 AM CLINICAL APPEALS AUDITOR) athologist Signature Ammonia, Blood 30 0 - 44 PN SOFT umol/L Specimen Anatomical Collection Method Collection Time Receive d Time (Source) Location / / Volume Laterality 04/29/2017 11:40 04/29/2017 2:56 AM CLINICAL APPEALS AUDITOR PM CLINICAL APPEALS AUDITOR Narrative PN SOFT - 04/29/2017 4:09 PM CLINICAL APPEALS AUDITOR Performed at [facility], [facility] [place] [address] CLIA number [id number] .Results faxed to [phone], 04/30/2017,07:05, by [facility].Results faxed to ?? Dr. Vane Zarate ?? [phone], 04/29/2017,11:46, by [facility] Joey Zarate MD LAB_1 Performing Organization Address [facility] Phon e Number PN SOFT [address] [place] [address] Potassium (04/29/2017 11:40 AM CLINICAL APPEALS AUDITOR) P athologist Signature Potassium 5.0 3.5 - 5.2 PN SOFT mmol/L Specimen Anatomical Collection Method Collection Time Receive d Time (Source) Location / / Volume Laterality 04/29/2017 11:40 04/29/2017 2:30 AM CLINICAL APPEALS AUDITOR PM CLINICAL APPEALS AUDITOR Narrative PN SOFT - 04/29/2017 3:23 PM CLINICAL APPEALS AUDITOR Performed at [facility], [address] [place] [address] CLIA number [id number] .Results faxed to [phone], 04/30/2017,07:05, by GI[facility]ANY.Results faxed to ?? Dr. Vane Zarate ?? [phone], 04/29/2017,11:46, by [facility] Joey Zarate MD LAB_1 Performing Organization Address [facility] Phon e Number PN SOFT [address] [place] [address] (ABNORMAL) Sodium (04/29/2017 11:40 AM CLINICAL APPEALS AUDITOR) P athologist Signature Sodium 135 (L) 136 - 145 PN SOFT mmol/L Specimen Anatomical Collection Method Collection Time Receive d Time (Source) Location / / Volume Laterality 04/29/2017 11:40 04/29/2017 2:30 AM CLINICAL APPEALS AUDITOR PM CLINICAL APPEALS AUDITOR Narrative PN SOFT - 04/29/2017 3:23 PM CLINICAL APPEALS AUDITOR Performed at [facility], [address] [place] [address] CLIA number [id number] .Results faxed to [phone], 04/30/2017,07:05, by [facility].Results faxed to ?? Dr. Vane Zarate ?? [phone], 04/29/2017,11:46, by [facility] Joey Zarate MD LAB_1 Performing Organization Address [facility] Phon e Number PN SOFT [address] [place] [address] [phone] Valproic Acid (Depakene) (04/29/2017 11:40 AM CLINICAL APPEALS AUDITOR) Analysis [facility]formed At [facility] Time Signature Date Last Dose apr 29 2017 PN SOFT Valproic Acid Time Last Dose 8:0 PN SOFT Valproic Acid Valproic 51 50 - 100 PN SOFT Acid/Depakene ug/mL (Valp) Specimen Anatomical Collection Method Collection Time Receive d Time (Source) Location / / Volume Laterality 04/29/2017 11:40 04/29/2017 3:01 AM CLINICAL APPEALS AUDITOR PM CLINICAL APPEALS AUDITOR Narrative PN SOFT - 04/29/2017 3:24 PM CLINICAL APPEALS AUDITOR Performed at [address] [address] CLIA number [id number] .Results faxed to [phone], 04/30/2017,07:05, by [facility].Results faxed to ?? Dr. Vane Zarate ?? [phone], 04/29/2017,11:46, by [facility] Joey Zarate MD LAB_1 Performing Organization Address [facility] Phon e Number PN SOFT [address] [place] [address] [phone] (ABNORMAL) Creatinine / GFR (04/29/2017 11:40 AM CLINICAL APPEALS AUDITOR) Analysis Performed At [facility] Time Signature Creatinine 0.70 (L) 0.73 - [...] Volume Laterality 04/29/2017 11:40 04/29/2017 2:30 AM CLINICAL APPEALS AUDITOR PM CLINICAL APPEALS AUDITOR Narrative PN SOFT - 04/29/2017 3:23 PM CLINICAL APPEALS AUDITOR Performed at [facility], [address] [place] [id number] CLIA number [id number] .Results faxed to [phone], 04/30/2017,07:05, by GI[facility]ANY.Results faxed to ?? Dr. Vane Zarate ?? [phone], 04/29/2017,11:46, by [facility] Joey Zarate MD LAB_1 Performing Organization Address [facility] Code Phon e Number PN SOFT [address] [place] [address] (ABNORMAL) Hgb A1c (04/29/2017 11:40 AM CLINICAL APPEALS AUDITOR) P athologist Signature HGB A1C 9.7 (H) 4.0 - 5.6 % PN SOFT Specimen Anatomical Collection Method Collection Time Receive d Time (Source) Location / / Volume Laterality 04/29/2017 11:40 04/29/2017 3:01 AM CLINICAL APPEALS AUDITOR PM CLINICAL APPEALS AUDITOR Narrative PN SOFT - 04/29/2017 10:26 PM CLINICAL APPEALS AUDITOR Performed at [facility], [address] [place] [address] CLIA number [id number] .Results faxed to [phone], 04/30/2017,07:05, by [facility].Results faxed to ?? Dr. Vane Zarate ?? [phone], 04/29/2017,11:46, by [facility] Joey Zarate MD LAB_1 Performing Organization Address [facility] Phon e Number PN SOFT [address] [place] [address] Alanine Aminotransferase - ALT (SGPT) (04/29/2017 11:40 AM CLINICAL APPEALS AUDITOR) Patholo gist Method Time Signature Alanine 17 9 - 55 PN SOFT Aminotransferase U/L Specimen Anatomical Collection Method Collection Time Receive d Time (Source) Location / / Volume Laterality 04/29/2017 11:40 04/29/2017 2:30 AM CLINICAL APPEALS AUDITOR PM CLINICAL APPEALS AUDITOR Narrative PN SOFT - 04/29/2017 3:23 PM CLINICAL APPEALS AUDITOR Performed at [facility], [address] [place] [address] CLIA number [id number] .Results faxed to [phone], 04/30/2017,07:05, by [facility]ANY.Results faxed to ?? Dr. Vane Zarate ?? [phone], 04/29/2017,11:46, by [facility] Joey Zarate MD LAB_1 Performing Organization Address [facility] Code Phon e Number PN SOFT [address] [place] [address] Aspartate Aminotransferase - AST (04/29/2017 11:40 AM CLINICAL APPEALS AUDITOR) Patholo gist Method Time Signature Aspartate 21 10 - 40 PN SOFT Aminotransferase U/L Specimen Anatomical Collection Method Collection Time Receive d Time (Source) Location / / Volume Laterality 04/29/2017 11:40 04/29/2017 2:30 AM CLINICAL APPEALS AUDITOR PM CLINICAL APPEALS AUDITOR Narrative PN SOFT - 04/29/2017 3:23 PM CLINICAL APPEALS AUDITOR [place] [address] CLIA number [id number] .Results faxed to [phone], 04/30/2017,07:05, by GI[facility]ANY.Results faxed to ?? Dr. Vane Zarate ?? [phone], 04/29/2017,11:46, by [facility] Joey Zarate MD LAB_1 Performing Organization Address [facility] Phon e Number PN SOFT [address] [place] [address] CBC - Complete Blood Count-W/Diff (04/29/2017 11:40 AM CLINICAL APPEALS AUDITOR) P athologist Signature White Blood Cell 8.8 [...] / Volume Laterality 04/29/2017 11:40 04/29/2017 AM CLINICAL APPEALS AUDITOR 11:40 AM CLINICAL APPEALS AUDITOR Narrative PN SOFT - 04/29/2017 11:44 AM CLINICAL APPEALS AUDITOR Performed at [facility], [address] [place] [address] CLIA number [id number] .Results faxed to [phone], 04/30/2017,07:05, by [facility].Results faxed to ?? Dr. Vane Zarate ?? [phone], 04/29/2017,11:46, by [facility] Joey Zarate MD LAB_1 Performing Organization Address City/[facility] Phon e Number PN SOFT [address] [place] [address] Call List Questions (04/29/2017 11:33 AM CLINICAL APPEALS AUDITOR) athologist Signature Call Back Done PN SOFT Documented Specimen (Source) Anatomical Collection Method Collection Time Re ceived Time Location / / Volume Laterality 04/29/2017 11:33 AM CLINICAL APPEALS AUDITOR Narrative PN SOFT - 04/29/2017 11:33 AM CLINICAL APPEALS AUDITOR Performed at [facility], [address] [place] [address] CLIA number [id number] Joey Zarate MD LAB_1 Performing Organization Address City/[facility] Phon e Number PN SOFT [address] [place] [address] documented in this encounter Visit Diagnoses Diagnosis Need for prophylactic chemotherapy - Sandra dorsey Need for other prophylactic chemotherapy Need for prophylactic chemotherapy Need for other prophylactic chemotherapy documented in this encounter Care Teams It Programmer Analyst Relationship Specialty Start Date End Date Gagandeep Hinojosa MD PCP - General 05/17/[address] [place] [address] Vane Zarate Psychiatrist Psychiatry 03/22/12 documented as of this encounter
--- OUTSIDE RECORDS SUMMARY | 2022-02-14 14:59 | XMS_ITS | Encounter Summary ---
:1970 Author Organization [employer] Address [address] [place] [address] Care Team Providers Name Role Phone Gagandeep Hinojosa MD Primary Care Provider Reason for Visit Reason Comments Disease Registry Encounter Details Date Type Department Care Team Description 05/19/2017 Notes/Orders [facility] Gagandeep Hinojosa MD [address] [facility] . [address] [facility] [address] [place] [address] [phone] (Wo rk) Social History Tobacco Use Types [...] filedocumented in this encounter Care Teams Sap Architect Relationship Specialty Start Date End Date Gagandeep Hinojosa MD PCP - General 05/17/12 [address] [facility] [place] [address] Vane Zarate Psychiatrist Psychiatry 03/22/12 documented as of this encounter
--- OUTSIDE RECORDS SUMMARY | 2022-02-14 15:00 | XMS_ITS | Encounter Summary ---
:1970 Author Organization [employer] Address [address], [place] [address] Care Team Providers Name Role Phone Gagandeep Hinojosa MD Primary Care Provider Reason for Visit Reason Onset Date Comments Refill 11/26/2016 Encounter Details Date Type Department Care Team Description 11/26/2016 Refill [facility] [address] Sabina Alcantar MBBS Refill Endocrinology [address] [facility] [address] [address] [place] [address] [place] [address] [phone] Social History Tobacco Use Types Packs/Day Years [...] uncontrolled documented in this encounter Care Teams Financial Services Director Relationship Specialty Start Date End Date Gagandeep Hinojosa MD PCP - General 05/17/12 1415 [facility] [place] [address] Vane Zarate Psychiatrist Psychiatry 03/22/12 documented as of this encounter
--- OUTSIDE RECORDS SUMMARY | 2022-02-14 15:00 | XMS_ITS | Encounter Summary ---
:1970 Author Organization [employer] Address [address] [place] [address] Care Team Providers Name Role Phone Gagandeep Hinojosa MD Primary Care Provider Reason for Visit Reason Comments Follow Up ER [facility] 07-08-16 Hypoglycemia Encounter Details Date Type Department Care Team Description 07/09/2016 Office Visit Gagandeep Storm [facility] emia (Primary Dx); Romario Rubio MD Bipolar I disorder ([facility]); [address] 1415 [facility] Uncontrolled type 2 diabetes mellitus without complication, with long-term current use of insulin ([facility]) [place] [address] [address] [phone] [place] V[place]IL [address] Social History Tobacco Use [...] 07/09/2016 10:00 AM CDT ICD-10-CM 1. Hypoglycemia ([facility]) E16.2 2. Bipolar I disorder ([facility]) F31.9 3. Uncontrolled type 2 diabetes mellitus without complication, with long-term current use of insulin([facility]) E11.65 Z79.4 CHIEF COMPLAINT: Chief Complaint Patient presents with ??? Follow Up ER [facility] 07-08-16 Hypoglycemia SUBJECTIVE : Timur [...] List Diagnosis Date Noted ??? Tobacco abuse ([facility]) 02/24/2016 ??? Tinea versicolor 07/18/2015 ??? Diabetic eye exam ([facility]) 12/12/2013 Overview Note: Eye exam done at [facility] on 12/12/13. Mild diabetic retinopathy in right eye. ??? Tobacco use disorder ([facility]) 10/26/2012 ??? ACS (acute coronary syndrome) ([facility]) 10/25/2012 ??? Anemia 05/02/2012 ??? Health shelter, active care coordination 03/22/2012 Overview Note: Drum Sealer: JOSETTE Yip [phone] Care coordination focus: T2DM, financial resources Living situation: lives with spouse Important notes: SSDI, significant insulin resistance, uses Relion insulin, commonly reaches Medicare Coverage Gap See care plan under Chart Review > Misc Reports > [facility]B [facility] CARE PLAN REPORT ??? Microalbuminuria 02/04/2012 ??? SD, old ([facility]) 09/16/2011 ??? History of PTCA 09/16/2011 ??? Obesity, Class I, BMI 30-34.9 ([facility]) 09/16/2011 Overview Note: Body mass index is 31.16 kg/(m^2). ??? Hyperlipidemia with target LDL less than 70 ([facility]) 06/08/2011 ??? ASHD (arteriosclerotic heart disease) ([facility]) 05/04/2011 ??? Erectile dysfunction 01/22/2011 Overview Note: side effect Risperdal ??? Type 2 diabetes mellitus, uncontrolled ([facility]) 12/11/2010 ??? Dermatophytosis of body 09/04/2010 Class: Historical ??? Coronary atherosclerosis ([facility]) 12/22/2009 Overview Note: LW Modifier: mod RCA, negative nuclear stress test ??? Nonspecific abnormal results of liver function study 12/22/2009 ??? Bipolar I disorder ([facility]) 09/15/2005 Overview Note: LW Onset: [id number] FAMILY HISTORY OR SICK CONTACTS : No [...] insulin documented in this encounter Care Teams Screen Roller Relationship Specialty Start Date End Date Gagandeep Hinojosa MD PCP - General 05/17/[address] [place], [place] [address]el[place] [address] Vane Zarate Psychiatrist Psychiatry 03/22/12 documented as of this encounter
--- OUTSIDE RECORDS SUMMARY | 2022-02-14 15:00 | XMS_ITS | Encounter Summary ---
:1970 [facility] Address [address] [place] [address] Care Team Providers Name Role Phone Gagandeep Hinojosa MD Primary Care Provider Reason for Visit Reason Onset Date Comments [facility] Phone Visit 06/22/2016 Encounter Details Date Type Department Care Team Description 06/22/2016 Care Coord Phone Judy Luke R N [facility] Phone Visit Medicine 1415 [facility] 14[address] [facility] [place] [address] [place] [address] [phone] Social History Tobacco Use Types Packs/Day Years [...] RN - 06/22/2016 10:32 AM CST RN Electrician Substation Supervisor - Diabetes Follow-Up Current diabetes medication [...] dx Bipolar Disorder. He has called the [facility] Crisis line and Lesly Rodrigues [facility] Electrician Substation Supervisor about increased anxiety today. I reviewed the [...] with plan of care and follow up. CLE MECHANIC documented in this encounter Plan of Treatment Not on filedocumented as of this encounter Visit Diagnoses Diagnosis Health intermediate, active care coordinati on - Primary Bipolar I disorder ([facility]) Bipolar I disorder, most recent episode (or current) unspecified documented in this encounter Care Teams Rotor Balancer Relationship Specialty Start Date End Date Gagandeep Hinojosa MD PCP - General 05/17/12 9[address] [facility] [place] [address] Vane Zarate Psychiatrist Psychiatry 03/22/12 documented as of this encounter
--- OUTSIDE RECORDS SUMMARY | 2022-02-14 15:00 | XMS_ITS | Encounter Summary ---
:1970 Author Organization [employer] Address [address] [place] [address] Care Team Providers Name Role Phone Gagandeep Hinojosa MD Primary Care Provider Reason for Visit Reason Onset Date Comments High Blood Sugar 07/07/2016 HYPOGLYCEMIA 07/08/2016 Encounter Details Date Type Department Care Team Description 07/07/2016 Nurse Triage [facility] Gagandeep Hinojosa High Blo od Sugar; Romario Rubio MD HYPOGLYCEMIA [address] [place] [address] Ave [phone] [place], [place] [address] Social History Tobacco Use [...] PM CDT Protocol: DIABETES - LOW BLOOD [id number] Affirmative: Low blood sugar symptoms persist > [...] This was right before he got up. [place] dizzy but no sweating. Drank orange juice [...] on filedocumented in this encounter Care Teams Interpreter And Translator Relationship Specialty Start Date End Date Gagandeep Hinojosa MD PCP - General 05/17/12 1415 [place] [address] Vane Zarate Psychiatrist Psychiatry 03/22/12 documented as of this encounter
--- OUTSIDE RECORDS SUMMARY | 2022-02-14 15:00 | XMS_ITS | Encounter Summary ---
:1970 Author Organization [employer] Address [address], [place] [address] Care Team Providers Name Role Phone Gagandeep Hinojosa MD Primary Care Provider Reason for Referral (Routine) - Closed Specialty Diagnoses / Procedures Referred By Contact Refer red To Contact Diagnoses Dyslipidemia ([facility]) Que Lal MD Procedures Outreach Nuclear Study [address] [facility] [address] [place] [address] Referral ID Status Reason Start Date Expiration Date Visits Requ ested Visits Authorized [id number] Closed 01/04/2017 04/05/2018 1 1 Encounter Details Date Type Department Care Team Description 12/31/2016 Hospital Encounter Heart & Vascular Dysli pidemia (Primary Center Nuclear Dx) Cardiology [address] [facility]. [place], [place] [id number] Social History Tobacco Use Types Packs/Day Years [...] MG daily. tabletIndications: ASHD (arteriosclerotic heart disease) ([facility]), Hyperlipidemia with target LDL less than 70 ([facility]) Charcoal 260 Take 1 Tab by mouth [...] SOPNIndications: Controlled type 2 diabetes with neuropathy ([facility]) insulin pen needle (BD Inject subcutaneously 100 [...] unspecified vessel or lesion type, unspecified whether ekl[place] or transplanted heart ([facility]), Essential hypertension (HR) [...] NM CARDIAC MPI STRESS TEST ( (Order [id number]) STRESS TEST PHARMACOLOGICAL ( (Order [id number]) Original Order Diagnosis: Dyslipidemia [E78.5 (ICD-10-CM)] Coronary artery disease, angina presence unspecified, unspecified vessel or lesion type, unspecifiedwhether eklutna or transplanted heart [I25.10 (ICD-10-CM)] Chest pain, rule out acute myocardial infarction [R07.9 (ICD-10-CM)] Dyslipidemia [E78.5 (ICD-10-CM)] Coronary artery disease, angina presence unspecified, unspecified vessel or lesion type, unspecifiedwhether eklut[place] or transplanted heart [I25.10 (ICD-10-CM)] Chest pain, rule out acute myocardial infarction [R07.9 (ICD-10-CM)] Reading Provider(s) Alexei Pratt MBBS PACs images are not viewable in Net[employer] Link. See text report below. 2017 12:32 [...] Patient Information Patient Name Sex Timur Krishnamurthy ([id number]) Male 1970 documented in this encounter Plan [...] NM CARDIAC MPI STRESS TEST (Acce ssion [id number]) (Order [id number]) STRESS TEST PHARMACOLOGICAL ( (Order [id number]) Original Order Diagnosis: Dyslipidemia [E78.5 (ICD-10-CM)] Coronary artery disease, angina presence unspecified, unspecified vessel or lesion type, unspecified wheth er eklutna or transplanted heart [I25.10 (ICD-10-CM)] Chest pain, rule out acute myocardial in farction [R07.9 (ICD-10-CM)] Dyslipidemia [E78.5 (ICD-10-CM)] Coronary artery disease, angina presence unspecified, unspecified vessel or lesion type, unspecified wheth er eklutna or transplanted heart [I25.10 (ICD-10-CM)] Chest pain, rule out acute myocardial in farction [R07.9 (ICD-10-CM)] ?? Reading Provider(s) ?? Alexei Pratt MBBS PACs images are not viewable in [employer] Link. See text report below. ?? 2017 12:32 PM - Alexei Pratt MBBS Narrative & Impression ?? STRESS NUCLEAR PERFUSION SCAN - 7 INDICATIONS: Coronary artery disease wit h history of inferior wall myocardial infarction. Dyslipidemia . Rest stress single isotope SPECT imaging was performed with [place] walk protocol. BASELINE ELECTROCARDIOGRAM: Normal sinus rhythm. [...] Information ?? Patient Name Sex Timur Krishnamurthy ([id number]) Male 1970 Procedure Note Deborah Mathews - 12/31/2016 11:59 PM CDT Results NM CARDIAC MPI STRESS TEST (Acce ssion [id number]) (Order [id number]) STRESS TEST PHARMACOLOGICAL ( (Order [id number]) Original Order Diagnosis: Dyslipidemia [E78.5 (ICD-10-CM)] Coronary artery disease, angina presence unspecified, unspecified vessel or lesion type, unspecified whether eklut[place] or transplanted heart [I25.10 (ICD-10-CM)] Chest pain, rule out acute myocardial in farction [R07.9 (ICD-10-CM)] Dyslipidemia [E78.5 (ICD-10-CM)] Coronary artery disease, angina presence unspecified, unspecified vessel or lesion type, unspecified whether ekl[place] or transplanted heart [I25.10 (ICD-10-CM)] Chest pain, rule out acute myocardial in farction [R07.9 (ICD-10-CM)] Reading Provider(s) Alexei Pratt MBBS PACs images are not viewable in Net[employer] Link. See text report below. 2017 12:32 [...] Patient Information Patient Name Sex Timur Schulz ([id number]) Male 1970 Que Lal MD PN CARDIAC SERVICES ORDERABL ES Performing Organization Address City/State/ZIP Code Phon e Number POCT PN POCT documented in this encounter Visit Diagnoses Diagnosis Dyslipidemia ([facility]) - Primary Other and unspecified hyperlipidemia documented in this encounter Care Teams Dress Finisher Relationship Specialty Start Date End Date Gagandeep Hinojosa MD PCP - General 05/17/12 [facility] [place] [address] Vane Zarate Psychiatrist Psychiatry 03/22/12 documented as of this encounter
--- OUTSIDE RECORDS SUMMARY | 2022-02-14 15:00 | XMS_ITS | Encounter Summary ---
:1970 Author Organization [employer] Address [address] [address] Care Team Providers Name Role Phone Gagandeep Hinojosa MD Primary Care Provider Reason for Visit Reason Onset Date Comments APPOINTMENT REQUEST 08/30/2016 Encounter Details Date Type Department Care Team Description 08/30/2016 Nurse Triage [facility] Gagandeep Hinojosa, APPOI NTMENT REQUEST Medicine [address]15 [facility] . [address] [facility] [address] [place] [address] [phone] (Wo rk) Social History Tobacco Use Types [...] 08/30/2016 1:17 PM CDT Spoke with pt. [facility] has appointment to see PCP on [...] time. Preferred to discuss at upcoming appointment. Money Position Officer did update appointment reason to add L thigh numbness and pain. All questions answered. Verbalizes understanding of info. To call back if has further concerns/questions. documented in this encounter Plan of Treatment Not on filedocumented as of this encounter Visit Diagnoses Not on filedocumented in this encounter Care Teams Clinical Lab Assistant Relationship Specialty Start Date End Date Gagandeep Hinojosa MD PCP - General 05/17/12 [address] [facility] [place] [address] Vane Zarate Psychiatrist Psychiatry 03/22/12 documented as of this encounter
--- OUTSIDE RECORDS SUMMARY | 2022-02-14 15:00 | XMS_ITS | Encounter Summary ---
:1970 Author Organization [employer] Address [address], [place] [address] Care Team Providers Name Role Phone Gagandeep Hinojosa MD Primary Care Provider Reason for Visit Reason Onset Date Comments DIABETES, MELLITUS 07/04/2016 Encounter Details Date Type Department Care Team Description 07/04/2016 Nurse Triage [facility] Gagandeep Hinojosa, DIABE TOMMY, MELLITUS Medicine 1415 [facility] . 1415 [place] [address] [place], [place] [address] (Wo rk) Social History Tobacco Use Types [...] PM CDT Protocol: DIABETES - LOW BLOOD [id number] Affirmative: Low blood sugar prevention, questions about [...] on filedocumented in this encounter Care Teams Couturiere Relationship Specialty Start Date End Date Gagandeep Hinojosa MD PCP - General 05/17/12 [facility]5 [facility] [place] [address] Vane Zarate Psychiatrist Psychiatry 03/22/12 documented as of this encounter
--- OUTSIDE RECORDS SUMMARY | 2022-02-14 15:00 | XMS_ITS | Encounter Summary ---
:1970 Author Organization [employer] Address [address] [address] Care Team Providers Name Role Phone Gagandeep Hinojosa MD Primary Care Provider Reason for Visit Reason Comments Diabetes Encounter Details Date Type Department Care Team Description 09/15/2016 Office Visit [place] Alcantar Tomás franco type 2 diabetes mellitus without complication, without long-term current use of insulin ([facility]) (Primary Dx); Endocrinology M, MBYOGESH Bipolar I disorder ([facility]) [address] [address] [facility] [phone] [place], [place] [address] Social History Tobacco Use Types Packs/Day Years [...] Alcantar, REINA - 09/15/2016 2:30 PM CDT [facility] Department of Endocrinology, Diabetes and Metabolism Clinic [...] takes lisinopril 10 mg daily BP today [id number]. He takes atorvastatin 80 mg daily, he has history of CAD s/p OK and PCI in 2011. ROS: A 3 [...] lisinopril. #3 Dyslipidemia: continue atorvastatin. REINA Barrera Braid Maker documented in this encounter Plan of [...] unspecified documented in this encounter Care Teams Aquaculture Farmer Relationship Specialty Start Date End Date Gagandeep Hinojosa MD PCP - General 05/17/12 [address] [place] [address] Vane Zarate Psychiatrist Psychiatry 03/22/12 documented as of this encounter
--- OUTSIDE RECORDS SUMMARY | 2022-02-14 15:00 | XMS_ITS | Encounter Summary ---
:1970 Author Organization [employer] Address [address], [place] [address] Care Team Providers Name Role Phone Gagandeep Hinojosa MD Primary Care Provider Reason for Visit Reason Comments Procedure Left lower extremity EMG Procedure/Equipment (Routine) - Closed Specialty Diagnoses / Procedures Referred By Contact Refer red To Contact Diagnoses Paresthesia of lower limb Gagandeep Hinojosa MD [address] [place] [address] Referral ID Status Reason Start Date Expiration Date Visits Requ ested Visits Authorized [id number] Closed 09/07/2016 12/07/2017 1 1 Encounter Details Date Type Department Care Team Description 10/13/2016 Procedure Visit Verito Mackenzie Procedure (L eft Rehabilitative Ladi Rubio MD lower extremity Medicine [address] [place] [address] Dr EMG) [address] [place] [address] [phone] Social History Tobacco Use Types Packs/Day Years [...] Exam Date: 10/13/2016 Name: Timur Krishnamurthy MR#: [id number] Gender: Male Date of : 1970 Age: [...] ([facility]) documented in this encounter Care Teams Poultry Farmer Meat Relationship Specialty Start Date End Date Gagandeep Hinojosa MD PCP - General 05/17/12 1585 [facility] [place] [address] Vane Zarate Psychiatrist Psychiatry 03/22/12 documented as of this encounter
--- OUTSIDE RECORDS SUMMARY | 2022-02-14 15:00 | XMS_ITS | Encounter Summary ---
:1970 Author Organization [facility] Address [address] [place] [address] Care Team Providers Name Role Phone Gagandeep Hinojosa MD Primary Care Provider Reason for Visit Reason Comments RESULTS, TEST emg Encounter Details Date Type Department Care Team Description 10/22/2016 Office Visit Gagandeep Storm Sensory neuropathy Romario Rubio MD (Primary Dx) 1415 [facility] . [address] [place] [address] [address] [phone] [place], [place] [address] Social History Tobacco Use [...] documented in this encounter Patient Instructions Patient InstructionsGagadneep Hinojosa MD - 10/22/2016 2:00 PM CDT Vitamin D 9259-2109 IU daily Vitamin B 6 50 mg dailt Folic 1 mg daily Multi-vitamin documented in this encounter Progress Notes Gagandeep Hinojosa MD - 10/22/2016 2:00 PM CDT ICD-10-CM 1. Sensory neuropathy ([facility]) G62.9 left lower leg sensory CHIEF COMPLAINT: [...] List Diagnosis Date Noted ??? Tobacco abuse ([facility]) 02/24/2016 ??? Tinea versicolor 07/18/2015 ??? Diabetic eye exam ([facility]) 12/12/2013 Overview Note: Eye exam done at [facility] on 12/12/13. Mild diabetic retinopathy in right eye. ??? Tobacco use disorder ([facility]) 10/26/2012 ??? ACS (acute coronary syndrome) ([facility]) 10/25/2012 ??? Anemia 05/02/2012 ??? Health fpc, active care coordination 03/22/2012 Overview Note: Automatic Winder Operator: JOSETTE Yip [phone] Care coordination focus: T2DM, financial resources Living situation: lives with spouse Important notes: SSDI, significant insulin resistance, uses Relion insulin, commonly reaches Medicare Coverage Gap See care plan under Chart Review > [facility] Reports > [facility] CARE PLAN REPORT ??? Microalbuminuria 02/04/2012 ??? [place], old ([facility]) 09/16/2011 ??? History of PTCA 09/16/2011 ??? Obesity, Class I, BMI 30-34.9 ([facility]) 09/16/2011 Overview Note: Body mass index is 31.16 kg/(m^2). ??? Hyperlipidemia with target LDL less than 70 ([facility]) 06/08/2011 ??? ASHD (arteriosclerotic heart disease) ([facility]) 05/04/2011 ??? Erectile dysfunction 01/22/2011 Overview Note: side effect Risperdal ??? Type 2 diabetes mellitus, uncontrolled ([facility]) 12/11/2010 ??? Dermatophytosis of body 09/04/2010 Class: Historical ??? Coronary atherosclerosis ([facility]) 12/22/2009 Overview Note: LW Modifier: mod RCA, negative nuclear stress test ??? Nonspecific abnormal results of liver function study 12/22/2009 ??? Bipolar I disorder ([facility]) 09/15/2005 Overview Note: LW Onset: FAMILY HISTORY [...] werenormal. ASSESSMENT /PLAN ICD-10-CM 1. 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
--- OUTSIDE RECORDS SUMMARY | 2022-02-14 15:00 | XMS_ITS | Encounter Summary ---
:1970 Author Organization [facility] Address [address] [place] [address] Care Team Providers Name Role Phone Gagandeep Hinojosa MD Primary Care Provider Reason for Visit Reason Onset Date Comments [facility] Phone Visit 07/13/2016 Encounter Details Date Type Department Care Team Description 07/13/2016 Care Coord Phone [place] Juarez R N [facility] Phone Visit Medicine 1415 [facility] 1415 [facility] [place] [address] [place] [address] [phone] Social History Tobacco Use Types Packs/Day Years [...] RN - 07/13/2016 12:57 PM CDT RN Route Driver Coin Machines - Diabetes Follow-Up Current diabetes medication regimen: [...] the IDC. He prefers to stay in [place]. Therefore, I recommended Rustam inform the call center trainer that Dr Hinojosa will refer him to [...] ([facility]) documented in this encounter Care Teams Gym Supervisor Relationship Specialty Start Date End Date Gagandeep Hinojosa MD PCP - General 05/17/12 [address] [place] [id number] Vane Zarate Psychiatrist Psychiatry 03/22/12 documented as of this encounter
--- OUTSIDE RECORDS SUMMARY | 2022-02-14 15:00 | XMS_ITS | Encounter Summary ---
:1970 Author Organization [facility] Address [address] [place] [address] Care Team Providers Name Role Phone Gagandeep Hinojosa MD Primary Care Provider Reason for Visit Reason Onset Date Comments [facility] Phone Visit 07/05/2016 Encounter Details Date Type Department Care Team Description 07/05/2016 Care Coord Phone [facility] Deborah Rodrigues, [facility] Phone Visit [facility] 1415 [facility] . [address] [place] [address] [place] [address] [phone] Social History Tobacco Use Types Packs/Day Years Used Date Smoking Tobacco: Every Day Cigarettes 0 25 Smokeless Tobacco: Former Qu it: 10/25/2012 Comments: Smoking History Packs/day: Alcohol Use Standard Drinks/Week Comments No 0 (1 standard drink = 0.6 oz pure Alcoho lic Drinks/day: Amount:0; alcohol) Freq:Never; Sex Assigned at Date Recorded Not on file documented as of this encounter Progress Notes Deborah Rodrigues, [facility] - 07/05/2016 3:30 PM CDT Cath Laboratory Technician - Phone Call Contact with: Rustam [...] he has a Psychiatrist, therapist and RN Cath Laboratory Technician that check-in with himregularly. Rustam agreed to only call once a week, unless he felt it was an emergency. Rustam agreed to this plan and denied any other concerns at this time. Shared plan: -[facility] phone follow-up in one week. Pt verbalized understanding and agreed with plan of care and follow up. documented in this encounter Plan of Treatment Not on filedocumented as of this encounter Visit Diagnoses Diagnosis Health senior care, active care coordinati on - Primary documented in this encounter Care Teams Alto Singer Relationship Specialty Start Date End Date Gagandeep Hinojosa MD PCP - General 05/17/12 1415 [facility] KATIANA Gerber [address] Vane Zarate Psychiatrist Psychiatry 03/22/12 documented as of this encounter
--- OUTSIDE RECORDS SUMMARY | 2022-02-14 15:00 | XMS_ITS | Encounter Summary ---
:1970 Author Organization [facility] Address [address] [place] [address] Care Team Providers Name Role Phone Gagandeep Michaud MD Primary Care Provider Reason for Visit Reason Comments Refill NOVOLIN R 100 UNIT/ML inject ion [Pharmacy Med Name: NOVOLIN R 100UNIT/ML INJ] Encounter Details Date Type Department Care Team Description 12/03/2016 Refill [facility] Gagandeep Michaud, Refil l (NOVOLIN R 100 Medicine MD UNIT/ML injection [address] [Pharmacy Med Name: KATIANA Vigil [address] KAT[place]NA VIGIL [address] NOVOLIN R 100UNIT/ML [phone] (Wo rk) INJ]) Social History Tobacco Use [...] (Sent to [facility]) Powered by [employer], Reference: [id number], 12/03/2016 2:46:31 PM CDT, Pool: MANUEL MOORE ([id number]) documented in this encounter Plan of Treatment Not on filedocumented as of this encounter Visit Diagnoses Diagnosis Uncontrolled type 2 diabetes mellitus wi thout complication, with long-term current use of insulin documented in this encounter Care Teams Fish House Worker Relationship Specialty Start Date End Date Gagandeep Michaud MD PCP - General 05/17/12 1415 [facility] KATIANA Gerber [address] Vane Zarate Psychiatrsamantha Psychiatry 03/22/12 documented as of this encounter
--- OUTSIDE RECORDS SUMMARY | 2022-02-14 15:00 | XMS_ITS | Encounter Summary ---
:1970 Author Organization [employer] Address [address], [place] [address] Care Team Providers Name Role Phone Gagandeep Hinojosa MD Primary Care Provider Reason for Visit Reason Onset Date Comments UPDATE 08/19/2016 Encounter Details Date Type Department Care Team Description 08/19/2016 Telephone [facility] [address] Sabina Alcantar MBBS UPDATE Endocrinology [address] [place], [place] [address] [place] [address] [phone] Social History Tobacco Use Types Packs/Day Years [...] of Novolin R breakfast and dinner. 20 [phone] documented in this encounter Plan of Treatment Not on filedocumented as of this encounter Visit Diagnoses Not on filedocumented in this encounter Care Teams Amusement Park Worker Relationship Specialty Start Date End Date Gagandeep Hinojosa MD PCP - General 05/17/12 [address] KAT[place]NA Hernandez [address] Vane Zarate Psychiatrist Psychiatry 03/22/12 documented as of this encounter
--- OUTSIDE RECORDS SUMMARY | 2022-02-14 15:00 | XMS_ITS | Encounter Summary ---
:1970 Author Organization [employer] Address [address], [place] [address] Care Team Providers Name Role Phone Gagadneep Hinojosa MD Primary Care Provider Reason for Visit Reason Onset Date Comments FOLLOW-UP,DIABETES 07/18/2016 Encounter Details Date Type Department Care Team Description 07/18/2016 Nurse Triage [facility] Gagandeep Hinojosa, OCTAVIO W-UP,DIABETES Medicine 1415 [facility] . [address]15 [place] [address] [place] [address] [phone] (Wo rk) Social History Tobacco Use Types [...] test QID. Protocol: DIABETES - LOW BLOOD [id number](07/04) Affirmative: Low blood sugar prevention, questions about [...] documented in this encounter Care Teams Project Development Leader Relationship Specialty Start Date End Date Gagandeep Hinojosa MD PCP - General 05/17/[address] [place] [address] Vane Zarate Psychiatrist Psychiatry 03/22/12 documented as of this encounter
--- OUTSIDE RECORDS SUMMARY | 2022-02-14 15:00 | XMS_ITS | Encounter Summary ---
:1970 Author Organization [employer] Address [address], [place] [address] Care Team Providers Name Role Phone Gagandeep Hinojosa MD Primary Care Provider Reason for Visit Reason Onset Date Comments RESULTS, TEST 10/21/2016 Encounter Details Date Type Department Care Team Description 10/21/2016 Telephone [facility] Gagandeep Hinojosa MD RESULTS, TEST 1415 [facility] . [address] [place] [address] [place] [address] [phone] (Wo rk) Social History Tobacco Use Types [...] When and where was test done? 10/13/16 [place] Who ordered the test? Gagandeep Hinojosa MD documented in this encounter Plan of Treatment Not on filedocumented as of this encounter Visit Diagnoses Not on filedocumented in this encounter Care Teams Resawyer Relationship Specialty Start Date End Date Gagandeep Hinojosa MD PCP - General 05/17/12 1415 [facility] KATIANA Gerber [address] Vane Zarate Psychiatrist Psychiatry 03/22/12 documented as of this encounter
--- OUTSIDE RECORDS SUMMARY | 2022-02-14 15:00 | XMS_ITS | Encounter Summary ---
:1970 [address] [facility] Address [address] [place] [address] Care Team Providers Name Role Phone Gagandeep Hinojosa MD Primary Care Provider Reason for Visit Reason Onset Date Comments [facility] Phone Visit 06/24/2016 Encounter Details Date Type Department Care Team Description 06/24/2016 Care Coord Phone Judy Luke R N [facility] Phone Visit Medicine 1415 [facility] 1415 [facility] [place] [address] [place] [address] [phone] Social History Tobacco Use Types Packs/Day Years [...] RN - 06/24/2016 1:13 PM CST RN Mine Engineering Manager - Diabetes Follow-Up Current diabetes medication [...] with plan of care and follow up. AT SYSTEMS OFFICER documented in this encounter Plan of [...] documented in this encounter Care Teams Supervisor Customer Records Division Relationship Specialty Start Date End Date Gagandeep Hinojosa MD PCP - General 05/17/12 1415 [facility] [place] [address] Vane Zarate Psychiatrist Psychiatry 03/22/12 documented as of this encounter
--- OUTSIDE RECORDS SUMMARY | 2022-02-14 15:00 | XMS_ITS | Encounter Summary ---
:1970 Author Organization [facility] Address [address] [place] [address] Care Team Providers Name Role Phone Gagandeep Hinojosa MD Primary Care Provider Reason for Visit Reason Onset Date Comments [facility] Phone Visit 07/01/2016 Encounter Details Date Type Department Care Team Description 07/01/2016 Care Coord Phone Judy Luke R N [facility] Phone Visit Medicine 1415 [facility] 1415 [facility] [place] [address] [place] [address] [phone] Social History Tobacco Use Types Packs/Day Years [...] RN - 07/01/2016 9:51 AM CST RN [place] Redevelopment Site Manager - Diabetes Follow-Up Current diabetes medication [...] with plan of care and follow up. COLLAR BASTER documented in this encounter Plan of Treatment Not on filedocumented as of this encounter Visit Diagnoses Diagnosis Health assisted, active care coordinati on - Primary Uncontrolled type 2 diabetes mellitus wi th hyperglycemia, with long-term current use of insulin (HRC) Bipolar I disorder (HRC) Bipolar I disorder, most recent episode (or current) unspecified documented in this encounter Care Teams Equal Opportunity Counselor Relationship Specialty Start Date End Date Gagandeep Hinojosa MD PCP - General 05/17/12 1413 [facility] KATIANA Gerber [address] Vane Zarate Psychiatrist Psychiatry 03/22/12 documented as of this encounter
--- OUTSIDE RECORDS SUMMARY | 2022-02-14 15:00 | XMS_ITS | Encounter Summary ---
:1970 Author Organization [employer] Address [address] [place] [address] Care Team Providers Name Role Phone Gagandeep Hinojosa MD Primary Care Provider Reason for Visit Reason Onset Date Comments [facility] Phone Visit 07/21/2016 Encounter Details Date Type Department Care Team Description 07/21/2016 Care Coord Phone [facility] Deborah Rodrigues, [facility] Phone Visit [facility] 1415 [facility] . [address] [place] [address] [place] [address] [phone] Social History Tobacco Use Types Packs/Day Years Used Date Smoking Tobacco: Every Day Cigarettes 0 25 Smokeless Tobacco: Former Qu it: 10/25/2012 Comments: Smoking History Packs/day: Alcohol Use Standard Drinks/Week Comments No 0 (1 standard drink = 0.6 oz pure Alcoho lic Drinks/day: Amount:0; alcohol) Freq:Never; Sex Assigned at Date Recorded Not on file documented as of this encounter Progress Notes Deborah Rodrigues, [facility] - 07/21/2016 3:30 PM CDT Glacing Machine Tender - Phone Call Contact with: Rustam Reason [...] and check-in, in one week. Shared plan: -[facility] phone follow-up in one week. Pt verbalized understanding and agreed with plan of care and follow up. documented in this encounter Plan of Treatment Not on filedocumented as of this encounter Visit Diagnoses Diagnosis Health half-way, active care coordinati on - Primary documented in this encounter Care Teams Process Description Writer Relationship Specialty Start Date End Date Gagandeep Hinojosa MD PCP - General 05/17/12 [address] KATIANA Hernandez [id number] Vane Zarate Psychiatrist Psychiatry 03/22/12 documented as of this encounter
--- OUTSIDE RECORDS SUMMARY | 2022-02-14 15:00 | XMS_ITS | Encounter Summary ---
:1970 Author Organization [employer] Address [address] [address] Care Team Providers Name Role Phone Gagandeep Hinojosa MD Primary Care Provider Reason for Referral Consult/Transfer Care (Routine) - Closed Specialty Diagnoses / Procedures Referred By Contact Refer red To Contact Diagnoses Controlled type 2 diabetes with neuropathy (HRC) Glenys Alcantar MBBS [address] [place], [place] [address] Referral ID Status Reason Start Date Expiration Date Visits Requ ested Visits Authorized [id number] Closed 07/19/2016 10/18/2017 1 1 Scheduling Instructions Your provider has recommended an appoint ment with [facility]. You may call [phone] to schedule yo appointment. If you do [...] of insulin (HRC) Gagandeep Hinojosa MD [address] [place] [address] Referral ID Status Reason Start Date Expiration Date Visits Requ ested Visits Authorized [id number] Closed 06/21/2016 09/20/2017 1 1 Encounter Details Date Type Department Care Team Description 07/19/2016 Office Visit [facility] [address] Glenys Alcantar ar I disorder ([facility]) (Primary Dx); Endocrinology REINA Belcher Controlled type 2 diabetes with neuropat hy ([facility]); [address] Yady French [address] [place] Atheroscl erosis of coronary artery, angina presence unspecified, unspecified vessel or lesion type, unspecified whether [place] or transplanted heart ([facility]); [address] Hyperlipidemia with target LDL less than 70; [facility], [facility], [place] [address] [phone] Social History Tobacco Use Types Packs/Day Years [...] - 07/19/2016 2:32 PM CDT [facility] Department of Endocrinology, Diabetes and Metabolism Clinic [...] takes lisinopril 10 mg daily BP today qad246/72. He takes atorvastatin 80 mg daily, he has history of CAD s/p SC and PCI in 2011. ROS: A 3 [...] and exercise, I will refer him to [facility] for further teaching. We will try to [...] >50% was spent on counseling. REINA Barrera Information And Data Architect Analyst documented in this encounter Plan of Treatment [...] Controlled type 2 diabetes with neuropat hy ([facility]) Type II or unspecified type diabetes jasen litus with neurological manifestations, not stated as uncontrolled Atherosclerosis of coronary artery, dequan na presence unspecified, unspecified vessel or lesion type, unspecified whether [place] ve or transplanted heart (HR) Hyperlipidemia with target LDL less than 70 (HRC) Other and unspecified hyperlipidemia Microalbuminuria Proteinuria documented in this encounter Care Teams Artificial Breeding Distributor Relationship Specialty Start Date End Date Gagandeep Hinojosa MD PCP - General 05/17/12 1415 [facility] KATIANA Gerber [id number] Vane Zarate Psychiatrist Psychiatry 03/22/12 documented as of this encounter
--- OUTSIDE RECORDS SUMMARY | 2022-02-14 15:00 | XMS_ITS | Encounter Summary ---
:1970 Author Organization [employer] Address [address] [place] [address] Care Team Providers Name Role Phone Gagandeep Hinojosa MD Primary Care Provider Reason for Visit Reason Onset Date Comments [facility] Phone Visit 07/27/2016 Encounter Details Date Type Department Care Team Description 07/27/2016 Care Coord Phone [facility] Deborah Rodrigues, [facility] Phone Visit [facility] 1415 [facility] . [address] [place] [address] [place] [address] [phone] Social History Tobacco Use Types Packs/Day Years Used Date Smoking Tobacco: Every Day Cigarettes 0 25 Smokeless Tobacco: Former Qu it: 10/25/2012 Comments: Smoking History Packs/day: Alcohol Use Standard Drinks/Week Comments No 0 (1 standard drink = 0.6 oz pure Alcoho lic Drinks/day: Amount:0; alcohol) Freq:Never; Sex Assigned at Date Recorded Not on file documented as of this encounter Progress Notes Deborah Rodrigues, [facility] - 07/27/2016 3:30 PM CDT Neon Sign Maker - Phone Call Contact with: Rustam Reason [...] Primary documented in this encounter Care Teams End Polisher Relationship Specialty Start Date End Date Gagandeep Hinojosa MD PCP - General 05/17/12 1965 [facility] KATIANA Gerber [address] Vane Zarate Psychiatrist Psychiatry 03/22/12 documented as of this encounter
--- OUTSIDE RECORDS SUMMARY | 2022-02-14 15:00 | XMS_ITS | Encounter Summary ---
:1970 Author Organization [id number] Address [address] [place] [address] Care Team Providers Name Role Phone Gagandeep Hinojosa MD Primary Care Provider Encounter Details Date Type Department Care Team Description 09/07/2016 Lab Visit [facility] Uncontrolled type 2 diabetes mellitus with diabetic polyneuropathy, with long- term current use of insulin (HRC) [E11.42, Z79.4, E11.65]; [address] Hyperlipidemia LDL goal < 70 ; [place] [address] Essential hypertension [phone] Social History Tobacco Use Types Packs/Day Years [...] (ABNORMAL) Microalb/Creat Ratio (09/07/2016 10:26 AM CDT) [facility] gist Method Time Signature Microalbumin 102.5 mg/L PN SOFT Urine U Creat Random 263 mg/dL PN SOFT Microalbumin/Crea 39.0 (H) 0.0 - PN SOFT tinine Ratio 30.0 Specimen Anatomical Collection Method Collection Time Receive d Time (Source) Location / / Volume Laterality Urine specimen 09/07/2016 10:26 7 2:29 (specimen) AM CDT PM CDT Narrative PN SOFT - 09/07/2016 3:26 PM CDT Performed at [facility], [address] [place] [address] CLIA number [id number] Gagandeep Hinojosa MD LAB_1 Performing Organization Address City/State/ZIP Code Phon e Number PN SOFT [address] [place], [place] [address] [phone] (ABNORMAL) Creatinine / GFR (09/07/2016 10:25 AM [...] - 09/07/2016 3:04 PM CDT Performed at [facility], [address] [place] [address] CLIA number [id number] Gagandeep Hinojosa MD LAB_1 Performing Organization Address [facility] Phon e Number PN SOFT [address] [place] [address] (ABNORMAL) Electrolyte Panel (09/07/2016 10:25 AM CDT) [...] - 09/07/2016 3:04 PM CDT Performed at [facility], [address] [place], [place] [address] CLIA number [id number] Gagandeep Hinojosa MD LAB_1 Performing Organization Address [facility] Phon e Number PN SOFT [address] [place] [address] (ABNORMAL) Lipid Panel and Direct LDL(If Needed) [...] - 09/07/2016 3:04 PM CDT Performed at [facility], [address] [place] [address] CLIA number [id number] Gagandeep Hinojosa MD LAB_1 Performing Organization Address [facility] Phon e Number PN SOFT [address] [place] [address] (ABNORMAL) POCT Glycosylated Hemoglobin (HB A1C) (09/07/2016 10:25 AM CDT) [facility] gist Method Time Signature Glycosolated HGB [...] - 09/07/2016 10:35 AM CDT Performed at [facility], [address] [place] [address] CLIA number [id number] Gagandeep Hinojosa MD LAB_1 Performing Organization Address [facility] Phon e Number PN SOFT [address] [place] [address] Extra Serum Separator Tube (yellow) (09/07/2016 10:20 AM CDT) P athologist Signature Extra SST Top Drawn PN SOFT Drawn Specimen (Source) Anatomical Location Collection Method / Collectio n Time Received Time / Laterality Volume Narrative PN SOFT - 09/07/2016 10:20 AM CDT Performed at [facility], [address] [place] [address] CLIA number [id number] Gagandeep Hinojosa MD LAB_1 Performing Organization Address [facility] Phon e Number PN SOFT [address] [place] [address] documented in this encounter Visit Diagnoses Diagnosis Uncontrolled type 2 diabetes mellitus wi th diabetic polyneuropathy, with long-term current use of insulin (HRC) [E11.42, Z7 9.4, E11.65] Hyperlipidemia LDL goal < 70 Other and unspecified hyperlipidemia Essential hypertension (HRC) Unspecified essential hypertension documented in this encounter Care Teams Property Disposal Manager Relationship Specialty Start Date End Date Gagandeep Hinojosa MD PCP - General 05/17/12 1415 [facility] KATIANA Gerber [id number] Vane Zarate Psychiatrsamantha Psychiatry 03/22/12 documented as of this encounter
--- OUTSIDE RECORDS SUMMARY | 2022-02-14 15:00 | XMS_ITS | Encounter Summary ---
:1970 Author Organization [employer] Address [address] [place] [address] Care Team Providers Name Role Phone Gagandeep Hinojosa MD Primary Care Provider Reason for Visit Reason Comments Diabetes Encounter Details Date Type Department Care Team Description 02/16/2017 Office Visit Gagandeep Storm Unconfaribao lled type 2 diabetes mellitus with diabetic polyneuropathy, with long-term current use of insulin (HRC) (Primary Dx); Romario Rubio MD Encounter for immunization; [address] [facility] Diabetic polyneuropathy associated with type 2 diabetes mellitus (HRC); [address] [facility] current use of insulin (HRC); [place] [address] [place] Type 2 diabetes mellitus wit h diabetic polyneuropathy, with long- term current use of insulin (HRC); [phone] [id number] Hyperlipidemia, unspecified hyperlipidem ia type; [phone] Tobacco use dis order; (Work) ASHD (arteriosclerotic [...] controlled ICD-10-CM 1. ASHD (arteriosclerotic heart disease) (PSYCHIATRIC) I25.10 Basic Metabolic Panel 2. Encounter for immunization Z23 Influenza (Fluarix or Fluzone 0.5, 3+ yrs) 3. Uncontrolled type 2 diabetes mellitus with diabetic polyneuropathy, with long-term current use ofinsulin (PSYCHIATRIC) E11.42 POCT Glycosylated Hemoglobin (HB A1C) Z79.4 Microalb/Creat Ratio E11.65 4. Diabetic polyneuropathy associated with type 2 diabetes mellitus (PSYCHIATRIC) E11.42 5. regional intermodal truck driver current use of insulin (PSYCHIATRIC) Z79.4 6. Type 2 diabetes mellitus with diabetic polyneuropathy, with long-term current use of insulin (PSYCHIATRIC) E11.42 Z79.4 7. Hyperlipidemia, unspecified hyperlipidemia type (PSYCHIATRIC) E78.5 Lipid Panel and Direct LDL(If Needed) 8. Tobacco use disorder (PSYCHIATRIC) F17.200 PLAN: 1. Again, his major difficulty [...] (ABNORMAL) Microalb/Creat Ratio (08/15/2017 8:50 AM CDT) [facility] [employer] [facility] Method Time Signature Microalbumin 150.2 mg/L PN SOFT Urine U Creat Random 113 mg/dL PN SOFT Microalbumin/Crea 132.9 (H) 0.0 - PN SOFT tinine Ratio 30.0 Specimen Anatomical Collection Method Collection Time Receive d Time (Source) Location / / Volume Laterality Urine specimen 08/15/2017 8:50 AM 018 (specimen) CDT 11:33 AM CDT Narrative PN SOFT - 08/15/2017 12:05 PM CDT Performed at [facility], [address] [place] [address] CLIA number [id number] Gagandeep Hionjosa MD LAB_1 Performing Organization Address City/State/ZIP Code Phon e Number PN SOFT [address] [place] [address] (ABNORMAL) Lipid Panel and Direct LDL(If Needed) (08/15/2017 8:43 AM CDT) [facility] [employer] [facility] Method Time Signature Cholesterol 102 0 - [...] - 08/15/2017 3:34 PM CDT Performed at [facility], [address] [place] [address] CLIA number [id number] Gagandeep Hinojosa MD LAB_1 Performing Organization Address [facility] Phon e Number PN SOFT [address] [place] [address] (ABNORMAL) POCT Glycosylated Hemoglobin (HB A1C) (05/17/2017 1:59 PM SUBSTATION ENGINEER) [facility] gist Method Time Signature Glycosolated [...] Volume Laterality 05/17/2017 1:59 PM 8 1:58 SUBSTATION ENGINEER PM SUBSTATION ENGINEER Narrative PN SOFT - 05/17/2017 2:15 PM SUBSTATION ENGINEER Performed at [facility], [address] [place] [address] CLIA number [id number] Gagandeep Hinojosa MD LAB_1 Performing Organization Address [facility] Phon e Number PN SOFT [address] [place] [address] documented in this encounter Visit Diagnoses Diagnosis Uncontrolled type 2 diabetes mellitus wi th diabetic polyneuropathy, with long-term current use of insulin - Primary Encounter for immunization Need for other specified prophylactic va ccination against single bacterial disease Diabetic polyneuropathy associated with type 2 diabetes mellitus (HRC) group home current use of insulin (HRC) Encounter for long-term (current) use of insulin Type 2 diabetes mellitus with diabetic p olyneuropathy, with long-term current use of insulin (HRC) Hyperlipidemia, unspecified hyperlipidem ia type (HRC) Tobacco use disorder (HRC) Tobacco use disorder ASHD (arteriosclerotic heart disease) (H RC) Coronary atherosclerosis of unspecified type of vessel, otoe-missouria or graft Uncontrolled type 2 diabetes mellitus wi th diabetic polyneuropathy, with long-term current use of insulin Hyperlipidemia, unspecified hyperlipidem ia type (HRC) Uncontrolled type 2 diabetes mellitus wi th diabetic polyneuropathy, with long-term current use of insulin Uncontrolled type 2 diabetes mellitus wi thout complication, without long-term current use of insulin documented in this encounter Care Teams Environmental Analyst Relationship Specialty Start Date End Date Gagandeep Hinojosa MD PCP - General 05/17/12 1415 [facility] [place] [address] Vane Zarate Psychiatrist Psychiatry 03/22/12 documented as of this encounter
--- OUTSIDE RECORDS SUMMARY | 2022-02-14 15:00 | XMS_ITS | Encounter Summary ---
:1970 Author Organization [employer] Address [address] [place] [address] Care Team Providers Name Role Phone Gagandeep Hinojosa MD Primary Care Provider Reason for Visit Reason Onset Date Comments [facility] Phone Visit 06/30/2016 Encounter Details Date Type Department Care Team Description 06/30/2016 Care Coord Phone [facility] Deborah Rodrigues, [facility] Phone Visit [facility] 1415 [facility] . [address] [place] [address] [place] [address] [phone] Social History Tobacco Use Types Packs/Day Years Used Date Smoking Tobacco: Every Day Cigarettes 0 25 Smokeless Tobacco: Former Qu it: 10/25/2012 Comments: Smoking History Packs/day: Alcohol Use Standard Drinks/Week Comments No 0 (1 standard drink = 0.6 oz pure Alcoho lic Drinks/day: Amount:0; alcohol) Freq:Never; Sex Assigned at Date Recorded Not on file documented as of this encounter Progress Notes Deborah Rodrigues, [facility] - 06/30/2016 3:45 PM CST Front Desk Representative - Phone Call Contact with: Julius Reason [...] admitted. They did set him up with [facility] appointment, which he is planning on attending [...] will call in one week. Shared plan: -[facility] phone follow-up in one week. Pt verbalized understanding and agreed with plan of care and follow up. ES AIDE documented in this encounter Plan of Treatment Not on filedocumented as of this encounter Visit Diagnoses Diagnosis Health custodial, active care coordinati on - Primary documented in this encounter Care Teams Pet Adoption Counselor Relationship Specialty Start Date End Date Gagandeep Hinojosa MD PCP - General 05/17/12 [facility] [place] [address] Vane Zarate Psychiatrist Psychiatry 03/22/12 documented as of this encounter
--- OUTSIDE RECORDS SUMMARY | 2022-02-14 15:00 | XMS_ITS | Encounter Summary ---
:1970 Author Organization [email or web address] Address [address], [place] [address] Care Team Providers Name Role Phone Gagandeep Hinojosa MD Primary Care Provider Reason for Visit Reason Comments HC Face To Face Visit Encounter Details Date Type Department Care Team Description 07/13/2016 Care Coord Deborah Odom, [facility] Fa ce To Face Office Visit Medicine [facility] Visit [address] [place] 1415 [facility]. [facility] [place] [address] [place] [address] [phone] Social History Tobacco Use Types Packs/Day Years Used Date Smoking Tobacco: Every Day Cigarettes 0 25 Smokeless Tobacco: Former Qu it: 10/25/2012 Comments: Smoking History Packs/day: Alcohol Use Standard Drinks/Week Comments No 0 (1 standard drink = 0.6 oz pure Alcoho lic Drinks/day: Amount:0; alcohol) Freq:Never; Sex Assigned at Date Recorded Not on file documented as of this encounter Progress Notes Deborah Rodrigues, [facility] - 07/13/2016 11:00 AM CDT [...] is went to one therapy appointment at [facility], but felt like it was sterile and un-welcoming, so he cancelled his second appointment. Talked with Rustam about the importance of having an outlet to help him cope with how he is feeling. Rustam agreed that he needed to go back to see a therapist, but wasn't sure about going back to [facility]. I agreed to talk to Jimena French [...] Primary documented in this encounter Care Teams Survey Instrument Operator Relationship Specialty Start Date End Date Gagandeep Hinojosa MD PCP - General 05/17/[address] [place] [address] [place] [address] Vaen Zarate Psychiatrist Psychiatry 03/22/12 documented as of this encounter
--- OUTSIDE RECORDS SUMMARY | 2022-02-14 15:00 | XMS_ITS | Encounter Summary ---
:1970 Author Organization [employer] Address [address] [place] [address] Care Team Providers Name Role Phone Gagandeep Michaud MD Primary Care Provider Encounter Details Date Type Department Care Team Description 12/03/2016 Refill Order [place] [facility] Gagandeep Michaud MD [address]15 [facility] . [address] [facility] [place] [address] [place] [address] [phone] (Wo rk) Social History Tobacco Use Types [...] - NEXT LAB APPOINTMENT: None Powered by Powered, Reference: [id number], 12/03/2016 2:46:31 PM CDT, Pool: MANUEL MOORE ([id number]) documented in this encounter Plan of Treatment Not on filedocumented as of this encounter Visit Diagnoses Diagnosis Encounter for long-term (current) use of medications - Primary Encounter for long-term (current) use of other medications documented in this encounter Care Teams Ham Passer Relationship Specialty Start Date End Date Gagandeep Michaud MD PCP - General 05/17/12 [address] [place] [address] Vane Zarate Psychiatrist Psychiatry 03/22/12 documented as of this encounter
--- OUTSIDE RECORDS SUMMARY | 2022-02-14 15:00 | XMS_ITS | Encounter Summary ---
:1970 Author Organization [employer] Address [address], [place] [address] Care Team Providers Name Role Phone Gagandeep Hinojosa MD Primary Care Provider Reason for Visit Reason Onset Date Comments [facility] Phone Visit 07/02/2016 Encounter Details Date Type Department Care Team Description 07/02/2016 Care Coord Phone [facility] Deborah Rodrigues, [facility] Phone Visit [facility] 1415 [facility] . [address] [place] [address] [place] [address] [phone] Social History Tobacco Use Types Packs/Day Years Used Date Smoking Tobacco: Every Day Cigarettes 0 25 Smokeless Tobacco: Former Qu it: 10/25/2012 Comments: Smoking History Packs/day: Alcohol Use Standard Drinks/Week Comments No 0 (1 standard drink = 0.6 oz pure Alcoho lic Drinks/day: Amount:0; alcohol) Freq:Never; Sex Assigned at Date Recorded Not on file documented as of this encounter Progress Notes Deborah Rodrigues, [facility] - 07/02/2016 2:30 PM CST Spiral Weaver - Phone Call Contact with: Rustam Reason [...] in approximately one weekto check-in. Shared plan: -[facility] phone follow-up one week. Pt verbalized understanding and agreed with plan of care and follow up. R MIXER HELPER documented in this encounter Plan of Treatment Not on filedocumented as of this encounter Visit Diagnoses Diagnosis Health fdc, active care coordinati on - Primary documented in this encounter Care Teams Access Rep Relationship Specialty Start Date End Date Gagandeep Hinojosa MD PCP - General 05/17/12 [address] [place] [address] Vane Zarate Psychiatrist Psychiatry 03/22/12 documented as of this encounter
--- OUTSIDE RECORDS SUMMARY | 2022-02-14 15:00 | XMS_ITS | Encounter Summary ---
:1970 Author Organization [facility] Address [address] [place] [address] Care Team Providers Name Role Phone Gagandeep Michaud MD Primary Care Provider Reason for Visit Reason Comments Refill metoPROLOL succinate (TOPROL XL) 50 MG 24 hour release tablet [Pharmacy Med Name: METOPROLOL ER SUCCINAT E 50MG TABS] Encounter Details Date Type Department Care Team Description 08/08/2016 Refill Gagandeep Storm, Rochelle l (metoPROLOL Medicine MD succinate (TOPROL XL) [address] MG 24 hour release [place] [address] [place] [address] tablet [Pharmacy Med [phone] (Wo rk) Name: METOPROLOL ER SUCCINATE 50MG [...] MICHAUD Ordering User: CHA MUIR Interface, Out Easy Pairings Query - 08/08/2016 10:29 AM CDT metoPROLOL [...] 72 mm Hg on 07/19/2016 Powered by [employer] Reference: [id number], 08/08/2016 10:29:01 AM CDT, Pool: MANUEL LANDAILL ([id number]) documented in this encounter Plan of Treatment Not on filedocumented as of this encounter Visit Diagnoses Not on filedocumented in this encounter Care Teams Environmental Change Analyst Relationship Specialty Start Date End Date Gagandeep Michaud MD PCP - General 05/17/12 [address] [place] [address] Vane Zarate Psychiatrist Psychiatry 03/22/12 documented as of this encounter
--- OUTSIDE RECORDS SUMMARY | 2022-02-14 15:00 | XMS_ITS | Encounter Summary ---
:1970 Author Organization [employer] Address [address], [place] [address] Care Team Providers Name Role Phone Gagandeep Hinojosa MD Primary Care Provider Reason for Visit Reason Onset Date Comments [facility] Phone Visit 07/14/2016 Encounter Details Date Type Department Care Team Description 07/14/2016 Care Coord Phone [facility] Deborah Rodrigues, [facility] Phone Visit [facility] 1415 [facility] . [address] [place] [address] [place] [address] [phone] Social History Tobacco Use Types Packs/Day Years Used Date Smoking Tobacco: Every Day Cigarettes 0 25 Smokeless Tobacco: Former Qu it: 10/25/2012 Comments: Smoking History Packs/day: Alcohol Use Standard Drinks/Week Comments No 0 (1 standard drink = 0.6 oz pure Alcoho lic Drinks/day: Amount:0; alcohol) Freq:Never; Sex Assigned at Date Recorded Not on file documented as of this encounter Progress Notes Deborah Rodrigues, [facility] - 07/14/2016 1:30 PM CDT Asphalt Plant Worker - Phone Call Contact with: Rustam Reason for call: Care Coordination Discussion/actions: Got an appointment scheduled with KARLEY, Dr. Gladys Longoria, on 07/20 at 10:30. Called Rustam and gave him this information. He agreed to be at this appointment and said that he had transportation. He will call [facility] and check-in next week to discuss how it went. Rustam reports everything else is going fine. Denied any thoughts of suicide. Shared plan: -Therapy appointment 07/20 at 10:30. -[facility] follow-up as needed. Pt verbalized understanding and agreed with plan of care and follow up. documented in this encounter Plan of Treatment Not on filedocumented as of this encounter Visit Diagnoses Diagnosis Health chcf, active care coordinati on - Primary documented in this encounter Care Teams Delivery Nurse Relationship Specialty Start Date End Date Gagandeep Hinojosa MD PCP - General 05/17/12 [facility]5 [facility] [place] [address] Vane Zarate Psychiatrist Psychiatry 03/22/12 documented as of this encounter
--- OUTSIDE RECORDS SUMMARY | 2022-02-14 15:00 | XMS_ITS | Encounter Summary ---
:1970 Author Organization [facility] Address [address] [place] [address] Care Team Providers Name Role Phone Gagandeep Hinojosa MD Primary Care Provider Reason for Visit Reason Onset Date Comments [facility] Phone Visit 06/28/2016 Encounter Details Date Type Department Care Team Description 06/28/2016 Care Coord Phone Judy Luke R N [facility] Phone Visit Medicine 1415 [facility] 14[address] [facility] [place] [address] [place] [address] [phone] Social History Tobacco Use Types Packs/Day Years [...] RN - 06/28/2016 1:49 PM CST RN Electronic Security Specialist - Diabetes Follow-Up Current diabetes medication [...] plan of care and follow up. R BANDER documented in this encounter Plan of Treatment Not on filedocumented as of this encounter Visit Diagnoses Diagnosis Health retirement, active care coordinati on - Primary Uncontrolled type 2 diabetes mellitus wi th hyperglycemia, with long-term current use of insulin (HRC) documented in this encounter Care Teams Baseball Sewer Hand Relationship Specialty Start Date End Date Gagandeep Hinojosa MD PCP - General 05/17/12 23[address] [facility] [place] [address] Vane Zarate Psychiatrsamantha Psychiatry 03/22/12 documented as of this encounter
--- OUTSIDE RECORDS SUMMARY | 2022-02-14 15:00 | XMS_ITS | Encounter Summary ---
:1970 Author Organization [email or web address] Address [address] [address] Care Team Providers Name Role Phone Gagandeep Hinojosa MD Primary Care Provider Reason for Referral Procedure/Equipment (Routine) - Closed Specialty Diagnoses / Procedures Referred By Contact Refer red To Contact Diagnoses Paresthesia of lower limb Gagandeep Hinojosa MD [address] [place] [address] Referral ID Status Reason Start Date Expiration Date Visits Requ ested Visits Authorized [id number] Closed 09/07/2016 12/07/2017 1 1 Scheduling Instructions Your provider has recommended an appoint ment with [facility]. You may call [phone] to sche dule your appointment. If you do not schedule an appointment within the next 1 to 3 sine days, we will call you to help arrange your appointment. We suggest you call [employer] about your coverage and benefits for this appointme nt. Reason for Visit Reason Comments Diabetes LEG PAIN 1 month, left Encounter Details Date Type Department Care Team Description 09/07/2016 Office Visit Gagandeep Storm type 2 diabetes mellitus without complication, with long-term current use of insulin (HRC) [E11.65,Z79.4] (Primary Dx); Romario Rubio MD Paresthesia of lower limb; [address] [place] 1415 [facility] Type 2 d iabetes mellitus without complication, with long-term current use of insulin (HRC) [E11.9, Z79.4]; [address] buttermaker current use of insulin ([facility]); [place] [address] [place], [place] Essential hypertension; [phone] Hyperlipidemia, unspecified hyperlipidem ia type ([facility]) [E78.5]; [phone] Tobacco use dis order (Work) Social History [...] insulin (HRC) [E11.9, Z79.4] E11.9 Z79.4 4. buttermaker current use of insulin (HRC) Z79.4 5. [...] (ABNORMAL) Microalb/Creat Ratio (02/16/2017 11:01 AM CDT) [facility] Move In History Method Time Signature Microalbumin 124.6 mg/L PN SOFT Urine U Creat Random 78 mg/dL PN SOFT Microalbumin/Crea 159.7 (H) 0.0 - PN SOFT tinine Ratio 30.0 Specimen Anatomical Collection Method Collection Time Receive d Time (Source) Location / / Volume Laterality Urine specimen 02/16/2017 11:01 7 2:41 (specimen) AM CDT PM CDT Narrative PN SOFT - 02/16/2017 3:37 PM CDT Performed at [facility] [address] [place] [address] CLIA number [id number] Gagandeep Hinojosa MD LAB_1 Performing Organization Address City/State/ZIP Code Phon e Number PN SOFT [address] [place] [address] [phone] (ABNORMAL) Lipid Panel and Direct LDL(If Needed) (02/16/2017 10:54 AM CDT) [facility] Move In History Method Time Signature Cholesterol 179 0 - [...] - 02/16/2017 3:18 PM CDT Performed at [facility] [address] [place] [address] CLIA number [id number] Gagandeep Hinojosa MD LAB_1 Performing Organization Address [facility] Phon e Number REINA EDMONDS [address] [place] [address] (ABNORMAL) POCT Glycosylated Hemoglobin (HB A1C) (02/16/2017 10:54 AM CDT) [facility] gist Method Time Signature Glycosolated HGB [...] - 02/16/2017 11:05 AM CDT Performed at [facility]5 [place] [address] CLIA number [id number] Gagandeep Hinojosa MD LAB_1 Performing Organization Address [facility] Phon e Number REINA EDMONDS [address] [place] [address] documented in this encounter Visit Diagnoses Diagnosis Uncontrolled type 2 diabetes mellitus wi thout complication, with long-term current use of insulin (HRC) [E11.65,Z79.4] - Pr imary Paresthesia of lower limb Disturbance of skin sensation Type 2 diabetes mellitus without complic ation, with long-term current use of insulin (HRC) [E11.9, Z79.4] shelter current use of insulin (HRC) Encounter for long-term (current) use of insulin Essential hypertension (HRC) Unspecified essential hypertension Hyperlipidemia, unspecified hyperlipidem ia type (HRC) [E78.5] Tobacco use disorder (HRC) Tobacco use disorder Uncontrolled type 2 diabetes mellitus wi thout complication, with long-term current use of insulin (HRC) [E11.65,Z79.4] Hyperlipidemia, unspecified hyperlipidem ia type (HRC) [E78.5] documented in this encounter Care Teams Patent Prosecution Attorney Relationship Specialty Start Date End Date Gagandeep Hinojosa MD PCP - General 05/17/12 1415 [facility] [place] [address] Vane Zarate Psychiatrist Psychiatry 03/22/12 documented as of this encounter
--- OUTSIDE RECORDS SUMMARY | 2022-02-14 15:00 | XMS_ITS | Encounter Summary ---
:1970 Author Organization [facility] Address [address] [place] [address] Care Team Providers Name Role Phone Gagandeep Hinojosa MD Primary Care Provider Reason for Visit Reason Onset Date Comments [facility] Phone Visit 06/23/2016 Encounter Details Date Type Department Care Team Description 06/23/2016 Care Coord Phone Judy Luke R N [facility] Phone Visit Medicine 1415 [facility] 14[address] [facility] [place] [address] [place] [address] [phone] Social History Tobacco Use Types Packs/Day Years [...] RN - 06/23/2016 10:36 AM CST RN Public Health Technician - Diabetes Follow-Up Current diabetes medication regimen: [...] with plan of care and follow up. OPERATOR documented in this encounter Plan of Treatment Not on filedocumented as of this encounter Visit Diagnoses Diagnosis Health long-term, active care coordinati on - Primary Uncontrolled type 2 diabetes mellitus wi th hyperglycemia, with long-term current use of insulin (HRC) Bipolar I disorder (HRC) Bipolar I disorder, most recent episode (or current) unspecified documented in this encounter Care Teams Supervisor Laboratory Relationship Specialty Start Date End Date Gagandeep Hinojosa MD PCP - General 05/17/12 [address] [facility] [place] [address] Vane Zarate Psychiatrist Psychiatry 03/22/12 documented as of this encounter
--- OUTSIDE RECORDS SUMMARY | 2022-02-14 15:00 | XMS_ITS | Encounter Summary ---
:[address] [facility] Address [address] [place] [address] Care Team Providers Name Role Phone Gagandeep Hinojosa MD Primary Care Provider Reason for Visit Reason Onset Date Comments [facility] Phone Visit 07/12/2016 Encounter Details Date Type Department Care Team Description 07/12/2016 Care Coord Phone [facility] Deborah Rodrigues, [facility] Phone Visit [facility] 1415 [facility] . [address] [place] [address] [place] [address] [phone] Social History Tobacco Use Types Packs/Day Years Used Date Smoking Tobacco: Every Day Cigarettes 0 25 Smokeless Tobacco: Former Qu it: 10/25/2012 Comments: Smoking History Packs/day: Alcohol Use Standard Drinks/Week Comments No 0 (1 standard drink = 0.6 oz pure Alcoho lic Drinks/day: Amount:0; alcohol) Freq:Never; Sex Assigned at Date Recorded Not on file documented as of this encounter Progress Notes Deborah Rodrigues, [facility] - 07/12/2016 2:30 PM CDT Steam Tender - Phone Call Contact with: Rustam Reason for call: Care Coordination Discussion/actions: Received a phone call from Rustam, stating that he has canceled his mental healthfollow[facility] appointments at [facility]. He said that he did not feel like these appointments were beneficial, it was kind of a cold in sterile environment. Rustam said that his doctor put him on Ativan PRN, to help reduce his anxiety. He requested to meet with Care Coordination for counseling, as I feel comfortable with you. I explained that I do not do penitentiary counseling, but could help coordinate appropriate mental health services. I agreed to meet with Rustam to discuss appropriate services and goover his coping skills while at home. Rustam agreed with this plan and denied any other concerns at this time. Shared plan: -[facility] appointment 07/13 at 11:00. Pt verbalized understanding and agreed with plan of care and follow up. documented in this encounter Plan of Treatment Not on filedocumented as of this encounter Visit Diagnoses Diagnosis Health senior care, active care coordinati on - Primary documented in this encounter Care Teams Filtration Supervisor Relationship Specialty Start Date End Date Gagandeep Hinojosa MD PCP - General 05/17/12 1415 [facility] [place] [address] Vane Zarate Psychiatrist Psychiatry 03/22/12 documented as of this encounter
--- OUTSIDE RECORDS SUMMARY | 2022-02-14 15:00 | XMS_ITS | Encounter Summary ---
:1970 Author Organization [employer] Address [address], [place] [address] Care Team Providers Name Role Phone Gagandeep Hinojosa MD Primary Care Provider Reason for Visit Reason Onset Date Comments DIABETES EDUCATION 08/06/2016 Encounter Details Date Type Department Care Team Description 08/06/2016 Telephone [facility] [address] DI ABETES EDUCATION Endocrinology MBBS [address] [facility] [address] [place], [place] [address] [address] [place], [place] [phone] Social History Tobacco Use Types Packs/Day Years [...] on filedocumented in this encounter Care Teams Salvage Clerk Relationship Specialty Start Date End Date Gagandeep Hinojosa MD PCP - General 05/17/12 [facility] [facility] [place] [address] Vane Zarate Psychiatrist Psychiatry 11/28/12 documented as of this encounter
--- OUTSIDE RECORDS SUMMARY | 2022-02-14 15:00 | XMS_ITS | Encounter Summary ---
:1970 Author Organization [employer] Address [address], [place] [address] Care Team Providers Name Role Phone Gagandeep Hinojosa MD Primary Care Provider Reason for Visit Reason Onset Date Comments [facility] Phone Visit 06/22/2016 Encounter Details Date Type Department Care Team Description 06/22/2016 Care Coord Phone [facility] Deborah Rodrigues, [facility] Phone Visit [facility] [address] [facility] . [address] [place] [address] [place] [address] [phone] Social History Tobacco Use Types Packs/Day Years [...] Notes Deborah Rodrigues, [facility] - 06/22/2016 2:30 PM CST Slice Plug Cutter Operator - Phone Call Contact with: [...] other concerns at this time. Shared plan: -[facility] phone appointment 06/24. Pt verbalized understanding and agreed with plan of care and follow up. ER JOINER Deborah Rodrigues LICSW - 06/22/2016 12:00 PM CST Slice Plug Cutter Operator - Phone Call Contact with: [...] that he was going to take an [id number] sleeping medication, as his doctor had previously told him this may be beneficial. Rustam thanked me for checking in with him, and stated he did not need anything further at this time. Again he denied any thoughts of suicide and was able to identify the appropriate time to contact the crisis line if he needed to. Shared plan: -[facility] phone follow-up 06/29. Pt verbalized understanding and agreed with plan of care and follow up. ER JOINER Deborah Rodrigues LICSW - 06/22/2016 10:30 AM CST Slice Plug Cutter Operator - Phone Call Contact with: [...] other concerns at this time. Shared plan: -[facility] phone follow-up 06/29. Pt verbalized understanding and agreed with plan of care and follow up. ER JOINER Deborah Rodrigues LICSW - 06/22/2016 10:00 AM CST Contacted Rustam, per request from RN Slice Plug Cutter Operator, Judy Pittman. Left a [place]. [place] [phone] if he calls the clinic. ER JOINER documented in this encounter Plan of Treatment Not on filedocumented as of this encounter Visit Diagnoses Diagnosis [facility], active care coordinati on - Primary documented in this encounter Care Teams Court Recording Monitor Relationship Specialty Start Date End Date Gagandeep Hinojosa MD PCP - General 05/17/12 1415 [facility] [place] [address] Vane Zarate Psychiatrist Psychiatry 03/22/12 documented as of this encounter
--- OUTSIDE RECORDS SUMMARY | 2022-02-14 15:00 | XMS_ITS | Encounter Summary ---
:1970 Author Organization [facility] Address [address] [place] [address] Care Team Providers Name Role Phone Gagandeep Hinojosa MD Primary Care Provider Reason for Visit Reason Onset Date Comments [facility] Phone Visit 07/15/2016 Encounter Details Date Type Department Care Team Description 07/15/2016 Care Coord Phone [place] [facility] Phone Visit Medicine 1415 [facility] 1415 [facility] [place] [address] [place] [address] [phone] Social History Tobacco Use Types Packs/Day Years [...] RN - 07/15/2016 12:58 PM CDT RN Etched Circuit Processor - Diabetes Follow-Up Current diabetes medication regimen: [...] attend DM education, but prefersto stay in [place]. I will initiate a referral to St [...] correction, active care coordinati on - Primary Uncontrolled type 2 diabetes mellitus wi th microalbuminuria, with long-term current use of insulin documented in this encounter Care Teams Power Engineer Relationship Specialty Start Date End Date Gagandeep Hinojosa MD PCP - General 05/17/[address] [place], [place] [address], [place] [address] Vane Zarate Psychiatrist Psychiatry 03/22/12 documented as of this encounter
--- OUTSIDE RECORDS SUMMARY | 2022-02-14 15:00 | XMS_ITS | Encounter Summary ---
:1970 Author Organization [employer] Address [address] [place] [address] Care Team Providers Name Role Phone Gagandeep Hinojosa MD Primary Care Provider Reason for Visit Reason Onset Date Comments Patient Preference Scheduling 09/07/2016 Encounter Details Date Type Department Care Team Description 09/07/2016 Telephone Verito Mackenzie Patient Preference Rehabilitative Medic nicholas Rubio MD Scheduling [address] [place] [address] [place], [place] [phone] (Wo rk) Social History Tobacco Use Types [...] on filedocumented in this encounter Care Teams Licsw Relationship Specialty Start Date End Date Gagandeep Hinojosa MD PCP - General 05/17/12 [facility], [place] [address] Vane Zarate Psychiatrist Psychiatry 03/22/12 documented as of this encounter
--- OUTSIDE RECORDS SUMMARY | 2022-02-14 15:00 | XMS_ITS | Encounter Summary ---
:1970 Author Organization [employer] Address [address] [place] [address] Care Team Providers Name Role Phone Gagandeep Hinojosa MD Primary Care Provider Reason for Visit Reason Onset Date Comments [facility] Phone Visit 06/24/2016 Encounter Details Date Type Department Care Team Description 06/24/2016 Care Coord Phone [facility] Deborah Rodrigues, [facility] 1415 [facility] . 1415 [place] [address] [place] [address] [phone] Social History Tobacco Use Types Packs/Day Years Used Date Smoking Tobacco: Every Day Cigarettes 0 25 Smokeless Tobacco: Former Qu it: 10/25/2012 Comments: Smoking History Packs/day: Alcohol Use Standard Drinks/Week Comments No 0 (1 standard drink = 0.6 oz pure Alcoho lic Drinks/day: Amount:0; alcohol) Freq:Never; Sex Assigned at Date Recorded Not on file documented as of this encounter Progress Notes Deborah Rodrigues, [facility] - 06/24/2016 3:00 PM CST Photonics Engineering Technician - Phone Call Contact with: Rustam [...] on Tuesday and would still like an [facility] phone call on Tuesday. Denied any other concerns at this time and will call if he needs anything. Shared plan: -[facility] phone follow-up 06/29. Pt verbalized understanding and agreed with plan of care and follow up. NEY LINEMAN documented in this encounter Plan of Treatment Not on filedocumented as of this encounter Visit Diagnoses Diagnosis Health custodial, active care coordinati on - Primary documented in this encounter Care Teams Equipment Service Technician Relationship Specialty Start Date End Date Gagandeep Hinojosa MD PCP - General 05/17/[address] [place] [address] [place] [address] Vane Zarate Psychiatrist Psychiatry 03/22/12 documented as of this encounter
--- OUTSIDE RECORDS SUMMARY | 2022-02-14 15:01 | XMS_ITS | Encounter Summary ---
:1970 Author Organization [employer] Address [address] [place] [address] Care Team Providers Name Role Phone Gagandeep Hinojosa MD Primary Care Provider Reason for Visit Reason Onset Date Comments Lab Orders Needed 02/23/2016 Encounter Details Date Type Department Care Team Description 02/23/2016 Telephone [facility] Gagandeep Hinojosa, Lab Orders Needed [address] 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
--- OUTSIDE RECORDS SUMMARY | 2022-02-14 15:01 | XMS_ITS | Encounter Summary ---
:1970 Author Organization [facility] Address [address], [place] [address] Care Team Providers Name Role Phone Gagandeep Hinojosa MD Primary Care Provider Reason for Visit Reason Comments [place]/PPD Encounter Details Date Type Department Care Team Description 02/05/2016 Nursing [facility] PPD scree miky test Medicine (Primary Dx) 14[address] [place] [address] Social History Tobacco Use Types Packs/Day Years [...] rculosis documented in this encounter Care Teams Senior Maintenance Mechanic Relationship Specialty Start Date End Date Gagandeep Hinojosa MD PCP - General 05/17/12 1415 [facility] [place] [address] Vane Zarate Psychiatrist Psychiatry 03/22/12 documented as of this encounter
--- OUTSIDE RECORDS SUMMARY | 2022-02-14 15:01 | XMS_ITS | Encounter Summary ---
:1970 Author Organization [employer] Address [address] [place] [address] Care Team Providers Name Role Phone Gagandeep Hinojosa MD Primary Care Provider Reason for Visit Reason Comments Diabetes Encounter Details Date Type Department Care Team Description 06/09/2016 Office Visit [place] Gagandeep Russell Uncontro lled type 2 diabetes mellitus without complication, with long-term current use of insulin (HRC) (Primary Dx); Romario Rubio MD Atherosclerosis of coronary artery, dequan na presence unspecified, unspecified vessel or lesion type, unspecified whether grand ronde tribes or transplanted heart (HRC); [address] abuse; [address] Essential hypertension; [place] [address] [place] ASHD (arteriosclerotic heart disease); [phone] Hyperlipidemia LDL goal < 70; [phone] Flatulence; (Work) Uncontrolled type 2 diabetes mellitus wi th diabetic polyneuropathy, with long- term current use of insulin (HRC) [E11.42, Z79.4, E11.65]; [phone] Uncontrolled ty pe 2 diabetes mellitus with other ophthalmic complication, with long-term current use of insulin (HRC) [E11.39, Z79.4, E11.65]; (Fax) assisted curre nt use of insulin (HRC); Type [...] Comments Blood Pressure 154/84 06/09/2016 9:53 AM SUPPLY SPECIALIST Pulse 106 06/09/2016 9:53 AM SUPPLY SPECIALIST Temperature - - Respiratory Rate - - Oxygen Saturation - - Inhaled Oxygen Concentration - - Weight 102.5 kg (226 lb) 06/09/2016 9:45 AM SUPPLY SPECIALIST Height - - Body Mass Index 32.43 [...] without complication, with long-term current use of insulin([facility]) E11.65 divalproex (DEPAKOTE) 500 MG enteric coated tablet Z79.4 Insulin Syringe-Needle U-100 (INSULIN SYRINGE 31G X 5/16) 31G X 5/16 1 ML metFORMIN (GLUCOPHAGE) 500 MG tablet 2. Atherosclerosis of coronary artery, angina presence unspecified, unspecified vessel or lesion type, unspecified whether grand ronde tribes or transplanted heart ([facility]) I25.10 lisinopril (ZESTRIL) 10 MG tablet 3. Tobacco abuse ([facility]) Z72.0 4. Essential hypertension ([facility]) I10 lisinopril (ZESTRIL) 10 MG tablet Electrolyte Panel Creatinine / GFR 5. ASHD (arteriosclerotic heart disease) ([facility]) I25.10 atorvastatin (LIPITOR) 80 MG tablet [...] [E11.39, Z79.4, E11.65] E11.39 Z79.4 E11.65 10. manager long term care current use of insulin (HRC) Z79.4 11. Type 2 diabetes mellitus with diabetic polyneuropathy, with long-term current use of insulin (HRC) [E11.42, Z79.4] E11.42 Z79.4 12. Hyperlipidemia, unspecified hyperlipidemia type (HRC) [E78.5] E78.5 13. Tobacco use disorder (HRC) F17.200 aggressively encouraged to stop smoking PLAN: 1. He will again need with respite care provider to discuss his insulin dosing. He may [...] UMAR: 3 months Aspirin: yes Tobacco: yes LY SPECIALIST documented in this encounter Plan of Treatment Not on filedocumented as of this encounter Results (ABNORMAL) Microalb/Creat Ratio (09/07/2016 10:26 AM CDT) [facility] gist Method Time Signature Microalbumin 102.5 [...] - 09/07/2016 3:26 PM CDT Performed at [facility], [address] [place] [address] CLIA number [id number] Gagandeep Hinojosa MD LAB_1 Performing Organization Address City/State/ZIP Code Phon e Number PN SOFT [address] [place] [address] (ABNORMAL) Creatinine / GFR (09/07/2016 10:25 AM [...] - 09/07/2016 3:04 PM CDT Performed at [facility], [address] [place] [address] CLIA number [id number] Gagandeep Hinojosa MD LAB_1 Performing Organization Address City/[facility]/ZIP Code Phon e Number PN SOFT [address] [place] [address] (ABNORMAL) Electrolyte Panel (09/07/2016 10:25 AM CDT) [...] - 09/07/2016 3:04 PM CDT Performed at [facility], [facility] [address] [place] [address] CLIA number [id number] Gagandeep Hinojosa MD LAB_1 Performing Organization Address [facility]/ZIP Code Phon e Number PN SOFT [address] [place] [address] (ABNORMAL) Lipid Panel and Direct LDL(If Needed) (09/07/2016 10:25 AM CDT) [facility] Method Time Signature Cholesterol 128 [...] - 09/07/2016 3:04 PM CDT Performed at [facility], [address] [place] [address] CLIA number [id number] Gagandeep Hinojosa MD LAB_1 Performing Organization Address [facility] Phon e Number PN SOFT [address] [place] [address] [phone] (ABNORMAL) POCT Glycosylated Hemoglobin (HB A1C) (09/07/2016 10:25 AM CDT) [facility] [employer] Method Time Signature Glycosolated HGB 8.3 (H) [...] - 09/07/2016 10:35 AM CDT Performed at [facility], [facility] [place] [address] CLIA number [id number] Gagandeep Hinojosa MD LAB_1 Performing Organization Address [facility] Phon e Number PN SOFT [address] [place] [address] documented in this encounter Visit Diagnoses Diagnosis [...] Coronary atherosclerosis of unspecified type of vessel, grand ronde tribes or graft Hyperlipidemia, unspecified hyperlipidem ia type (HRC) [E78.5] Flatulence Flatulence, eructation, and gas pain Uncontrolled type 2 diabetes mellitus wi th diabetic polyneuropathy, with long-term current use of insulin (HRC) [E11.42, Z7 9.4, E11.65] Uncontrolled type 2 diabetes mellitus wi th other ophthalmic complication, with long-term current use of insulin (HRC) [ E11.39, Z79.4, E11.65] assisted current use of insulin (HRC) Encounter for [...] hypertension documented in this encounter Care Teams Pneumatic Jacketer Relationship Specialty Start Date End Date Gagandeep Hinojosa MD PCP - General 05/17/[address] [place] [address] [place] [address] Vane Zarate Psychiatrsamantha Psychiatry 03/22/12 documented as of this encounter
--- OUTSIDE RECORDS SUMMARY | 2022-02-14 15:01 | XMS_ITS | Encounter Summary ---
:1970 Author Organization [employer] Address [address], [place] [address] Care Team Providers Name Role Phone Gagandeep Hinojosa MD Primary Care Provider Encounter Details Date Type Department Care Team Description 03/10/2016 Notes/Orders [facility] [place] Gagandeep Hinojosa MD 1415 [facility] . 1415 [facility] [place] [address] [place] [address] [phone] (Wo rk) Social History Tobacco Use Types [...] on filedocumented in this encounter Care Teams Citrus Fruit Packer Relationship Specialty Start Date End Date Gagandeep Hinojosa MD PCP - General 05/17/12 1416 [facility] [place] [address] Vane Zarate Psychiatrist Psychiatry 03/22/12 documented as of this encounter
--- OUTSIDE RECORDS SUMMARY | 2022-02-14 15:01 | XMS_ITS | Encounter Summary ---
:1970 Author Organization [employer] Address [address], [place] [address] Care Team Providers Name Role Phone Gagandeep Hinojosa MD Primary Care Provider Encounter Details Date Type Department Care Team Description 05/03/2016 Notes/Orders Y[facility]za [facility] Gagandeep Hinojosa MD 1415 [facility] . 1415 [facility] [place] [address] [place] [address] [phone] (Wo rk) Social History Tobacco Use Types [...] filedocumented in this encounter Care Teams Motor Racer Relationship Specialty Start Date End Date Gagandeep Hinojosa MD PCP - General 05/17/12 [facility]16 [facility] [place] [address] Vane Zarate Psychiatrist Psychiatry 03/22/12 documented as of this encounter
--- OUTSIDE RECORDS SUMMARY | 2022-02-14 15:01 | XMS_ITS | Encounter Summary ---
:1970 Author Organization [facility] Address [address] [place] [address] Care Team Providers Name Role Phone Gagandeep Hinojosa MD Primary Care Provider Reason for Visit Reason Onset Date Comments Medication Request 04/02/2016 Encounter Details Date Type Department Care Team Description 04/02/2016 Telephone [facility] Gagandeep Hinojosa, Medication Request 1415 [facility] [place] [address] 1415 [facility] [phone] [place] [address] (Wo rk) Social History Tobacco [...] week. Has one dose left for tomorrow. DIRECTOR COMBAT OPERATIONS OFFICER Clair Simpson - 04/02/2016 12:14 PM CST See refill request DIRECTOR COMBAT OPERATIONS OFFICER documented in this encounter Plan of Treatment Not on filedocumented as of this encounter Visit Diagnoses Diagnosis Bipolar I disorder (HRC) - Primary Bipolar I disorder, most recent episode (or current) unspecified documented in this encounter Care Teams Melter Supervisor Open Hearth Furnace Relationship Specialty Start Date End Date Gagandeep Hinojosa MD PCP - General 05/17/12 1415 [facility] [place] [address] Vane Zarate Psychiatrsamantha Psychiatry 03/22/12 documented as of this encounter
--- OUTSIDE RECORDS SUMMARY | 2022-02-14 15:01 | XMS_ITS | Encounter Summary ---
:1970 Author Organization [employer] Address [address] [place] [address] Care Team Providers Name Role Phone Gagandeep Hinojosa MD Primary Care Provider Reason for Visit Reason Comments Medication Questions Encounter Details Date Type Department Care Team Description 07/22/2015 Telephone [facility] Gagandeep Hinojosa, Medic ation Questions Medicine 1415 [facility] . [address] [place] [address] [place] [address] [phone] (Wo rk) Social History Tobacco Use Types [...] have been lower 100-150. To to address E WINDER Gloria Rodrigues - 07/22/2015 12:47 PM CDT [...] on filedocumented in this encounter Care Teams Floor Worker Relationship Specialty Start Date End Date Gagandeep Hinojosa MD PCP - General 05/17/[address] [place], [place] [address] [address] Vane Zarate Psychiatrist Psychiatry 03/22/12 documented as of this encounter
--- OUTSIDE RECORDS SUMMARY | 2022-02-14 15:01 | XMS_ITS | Encounter Summary ---
:1970 Author Organization [facility] Address [address] [place] [address] Care Team Providers Name Role Phone Gagandeep Hinojosa MD Primary Care Provider Encounter Details Date Type Department Care Team Description 10/02/2015 Notes/Orders [place] [facility] Gagandeep Hinojosa MD 1415 [facility] . 1415 [facility] [place] [address] [place] [address] [phone] (Wo rk) Social History Tobacco Use Types Packs/Day Years Used Date Smoking Tobacco: Never Assessed Sex Assigned at Date Recorded Not on file documented as of this encounter Miscellaneous Notes Letter - Gagandeep Hinojosa MD - 10/02/2015 12:00 AM CDT 10/02/2015 Timur Krishnamurthy [address] [place] [address] : 1970 Dear Timur: I am contacting you with a reminder that it is time for your diabetes visit , please call [phone] to schedule your visit due in September. [...] You can schedule your lab appointment at [phone]. Please continue to take your medications as prescribed. We look forward to seeing you again. Gagandeep Hinojosa MD UNTING MACHINE MECHANIC documented in this encounter Plan of Treatment Not on filedocumented as of this encounter Visit Diagnoses Not on filedocumented in this encounter Care Teams Regional Program Manager Relationship Specialty Start Date End Date Gagandeep Hinojosa MD PCP - General 05/17/[address] [place], [place] [address] [address] Vane Zarate Psychiatrist Psychiatry 03/22/12 documented as of this encounter
--- OUTSIDE RECORDS SUMMARY | 2022-02-14 15:01 | XMS_ITS | Encounter Summary ---
:1970 Author Organization [employer] Address [address] [place] [address] Care Team Providers Name Role Phone Gagandeep Michaud MD Primary Care Provider Reason for Visit Reason Comments Refill Encounter Details Date Type Department Care Team Description 12/24/2015 Refill [facility] Gagandeep Michaud MD Refill 1415 [facility] . 1415 [place] [address] [place] [address] [phone] (Wo rk) Social History Tobacco Use Types [...] - K: 5mEq/L on 07/18/2015 Powered by [employer], Reference: [id number], 12/24/2015 12:10:49 PM CDT, Pool: MANUEL REFILL ([id number]) F COUNSELOR Shayy Hess RN - 12/24/2015 1:50 PM CDT Renewed medication per medication refill protocol. Requested Prescriptions Signed Prescriptions Disp Refills ??? lisinopril (PRINIVIL, ZESTRIL) 5 mg tablet 90 tablet 2 Sig: TAKE 1 TABLET BY MOUTH EVERY DAY Authorizing Provider: GAGANDEEP MICHAUD Ordering User: SHAYY HESS Rx resent to pharmacy per current order by PCP dated 11/04/15. F COUNSELOR documented in this encounter Plan of Treatment Not on filedocumented as of this encounter Visit Diagnoses Not on filedocumented in this encounter Care Teams Harvest Field Ticketer Relationship Specialty Start Date End Date Gagandeep Michaud MD PCP - General 05/17/12 1415 [facility] [place] [address] Vane Zarate Psychiatrist Psychiatry 03/22/12 documented as of this encounter
--- OUTSIDE RECORDS SUMMARY | 2022-02-14 15:01 | XMS_ITS | Encounter Summary ---
:1970 Author Organization [employer] Address [address], [place] [address] Care Team Providers Name Role Phone Gagandeep Hinojosa MD Primary Care Provider Reason for Visit Reason Onset Date Comments Nicotine Dependence 03/12/2016 Encounter Details Date Type Department Care Team Description 03/12/2016 Telephone [place] [facility] Maddy Crane, PharmD Nicotine Dependence Management [facility] [address] [place] [address] [place], [place] [phone] (Wo rk) Social History Tobacco Use [...] as of this encounter Nursing Notes Maddy rCane, PharmD - 03/12/2016 1:25 PM CST Received [...] today. He has been working with a passenger coach driver through [employer] as well and finds the support from multiple sources very helpful. He would like to continue checking in with me weekly by telephone. Maddy rCane, Pharm.D. Medication Management Pharmacist [place] Medication Management L ENTITY CONTROLLER documented in this encounter Plan of Treatment Not on filedocumented as of this encounter Visit Diagnoses Not on filedocumented in this encounter Care Teams Product Design Specialist Relationship Specialty Start Date End Date Gagandeep Hinojosa MD PCP - General 05/17/[address] [facility] [place] [address] Vane Zarate Psychiatrist Psychiatry 03/22/12 documented as of this encounter
--- OUTSIDE RECORDS SUMMARY | 2022-02-14 15:01 | XMS_ITS | Encounter Summary ---
:1970 [address] [employer] Address [address] [place] [address] Care Team Providers Name Role Phone Gagandeep Hinojosa MD Primary Care Provider Encounter Details Date Type Department Care Team Description 11/04/2015 Lab Visit [place] Laboratory Type 2 diabetes mellitus, un controlled ([facility]); [address] Bipolar I disorder ([facility]); [place] [address] Hyperlipidemia with target L DL less than [...] CDT mellitus, uncontrolled proce dure are in ([facility]) the results section. POCT GLYCOSYLATED STAT 11/04/2015 3:13 Type 2 diabetes Resu lts for this HEMOGLOBIN (HB A1C) PM CDT mellitus, uncontrolle d procedure are in ([facility]) the results section. LIVER PANEL(HEPATIC STAT 11/04/2015 3:13 Resul ts for this FUNCTION PANEL) PM CDT procedure ar e in the results section. VALPROIC ACID Routine 11/04/2015 3:13 Bipolar I disorder Resul ts for this (DEPAKENE) PM CDT ([facility]) procedure are i n the results [...] (ABNORMAL) Microalb/Creat Ratio (11/04/2015 3:18 PM CDT) [facility] Method Time Signature Microalbumin 98.2 mg/L HP CONVERSION Urine U Creat Random 284 mg/dL HP CONVERSION Microalbumin/Cre 34.6 (H) 0.0 - HP CONVERSION atinine Ratio 30.0 Specimen Anatomical Collection Method Collection Time Receive d Time (Source) Location / / Volume Laterality 11/04/2015 3:18 PM 6 8:48 CDT AM CDT Narrative HP CONVERSION - 11/05/2015 9:25 AM CDT Performed at [facility], [address] [place] [address] CLIA number [id number] Gagandeep Hinojosa MD LAB_1 Performing Organization Address City/[facility] Phon e Number HP CONVERSION Liver Panel(Hepatic Function Panel) (11/04/2015 3:13 PM CDT) [facility] Method Time Signature Alk Phos 53 40 [...] - 11/05/2015 6:06 PM CDT Performed at [facility], [facility] [address] [place] [address] CLIA number [id number] Gagandeep Hinojosa MD LAB_1 Performing Organization Address [facility]/ZIP Code Phon e Number HP CONVERSION ALT (SGPT) (11/04/2015 3:13 PM CDT) [facility] gist Method Time Signature Alanine 23 9 - 55 HP CONVERSION Aminotransferase U/L Specimen Anatomical Collection Method Collection Time Receive d Time (Source) Location / / Volume Laterality 11/04/2015 3:13 PM 6 8:48 CDT AM CDT Narrative HP CONVERSION - 11/05/2015 9:21 AM CDT Performed at [facility], [address] [place] [address] CLIA number [id number] Gagandeep Hinojosa MD LAB_1 Performing Organization Address City/[facility] Code Phon e Number HP CONVERSION AST (11/04/2015 3:13 PM CDT) [facility] Method Time Signature Aspartate 20 9 - 34 HP CONVERSION Aminotransferase U/L Specimen Anatomical Collection Method Collection Time Receive d Time (Source) Location / / Volume Laterality 11/04/2015 3:13 PM 6 8:48 CDT AM CDT Narrative HP CONVERSION - 11/05/2015 9:21 AM CDT Performed at [facility], [address] [place] [address] CLIA number [id number] Gagandeep Hinojosa MD LAB_1 Performing Organization Address [facility] Phon e Number HP CONVERSION Valproic Acid (Depakene) (11/04/2015 3:13 PM CDT) [facility] gist Method Time Signature Date Last [...] - 11/04/2015 10:41 PM CDT Performed at [facility] [address] [place] [address] CLIA number [id number] Gagandeep Hinojosa MD LAB_1 Performing Organization Address [...] - 11/04/2015 3:35 PM CDT Performed at [facility], [address] [place] [address] CLIA number [id number] Gagandeep Hinojosa MD LAB_1 Performing Organization Address [facility] Phon e Number HP CONVERSION EXTRA SERUM SEPARATOR TUBE (YELLOW) (11/04/2015 3:07 PM CDT) athologist Signature Extra SST Top Drawn HP CONVERSION Drawn Specimen (Source) Anatomical Collection Method Collection Time Re ceived Time Location / / Volume Laterality 11/04/2015 3:07 PM CDT Narrative HP CONVERSION - 11/04/2015 3:07 PM CDT Performed at [facility], [address] [place] [address] CLIA number [id number] Gagandeep Hinojosa MD LAB_1 Performing Organization Address [facility] Phon e Number HP CONVERSION documented in this encounter Visit Diagnoses Diagnosis Type 2 diabetes mellitus, uncontrolled Type II or unspecified type diabetes jasen litus without mention of complication, uncontrolled Bipolar I disorder (HRC) Bipolar I disorder, most recent episode (or current) unspecified Hyperlipidemia with target LDL less than 70 (HRC) Other and unspecified hyperlipidemia documented in this encounter Care Teams Staff Mechanical Engineer Relationship Specialty Start Date End Date Gagandeep Hinojosa MD PCP - General 05/17/[address] [place] [address] Vane Zarate Psychiatrist Psychiatry 03/22/12 documented as of this encounter
--- OUTSIDE RECORDS SUMMARY | 2022-02-14 15:01 | XMS_ITS | Encounter Summary ---
:1970 Author Organization [employer] Address [address] [place] [address] Care Team Providers Name Role Phone Gagandeep Hinojosa MD Primary Care Provider Reason for Visit Reason Onset Date Comments INSECT STING--BEE--ED 12/31/2015 Encounter Details Date Type Department Care Team Description 12/31/2015 Nurse Triage [place] [facility] Gagandeep Hinojosa S TING--BEE--ED Medicine MD Joanne [address] [place] [address] Ave [phone] [place], [place] [address] Social History Tobacco Use [...] - 12/31/2015 1:22 PM CDT Protocol: MOSQUITO [id number] Affirmative: Mosquito bite(s) Disposition of Home Care [...] on filedocumented in this encounter Care Teams Oracle Drm Consultant Relationship Specialty Start Date End Date Gagandeep Hinojosa MD PCP - General 05/17/[address] [place] [address] [place] [address] Vane Zarate Psychiatrist Psychiatry 03/22/12 documented as of this encounter
--- OUTSIDE RECORDS SUMMARY | 2022-02-14 15:01 | XMS_ITS | Encounter Summary ---
:1970 Author Organization [employer] Address [address] [place] [address] Care Team Providers Name Role Phone Gagandeep Hinojosa MD Primary Care Provider Reason for Visit Reason Comments MEDICATION THERAPY MANAGEMENT Encounter Details Date Type Department Care Team Description 04/14/2016 Telephone [place] Medication Maddy Crane, MEDICA TION THERAPY Management PharmD MANAGEMENT 1415 [facility] . [address] [place] [address] [facility] [phone] [place] [address] (Wo rk) Social History Tobacco [...] have ongoing support through is [employer] women's lacrosse coach and would like to occasionally call me as well. He only has a 2 week supply ofnicotine 21mg patches at home and is requesting a refill today. Plan: 1) Quit Date: Ninfa Bourne - April 17, 2016 2) Nicotine 21mg patch and Nicotine 4mg gum Will follow-up as needed. Maddy Crane, Pharm.D. Medication Management Pharmacist [place] Medication Management PATCHER documented in this encounter Plan of Treatment Not on filedocumented as of this encounter Visit Diagnoses Diagnosis Tobacco use disorder (HRC) - Primary Tobacco use disorder documented in this encounter Care Teams Production Proofreader Relationship Specialty Start Date End Date Gagandeep Hinojosa MD PCP - General 05/17/12 1415 [facility] [place] [address] Vane Zarate Psychiatrist Psychiatry 03/22/12 documented as of this encounter
--- OUTSIDE RECORDS SUMMARY | 2022-02-14 15:01 | XMS_ITS | Encounter Summary ---
:1970 Author Organization [employer] Address [address] [place] [address] Care Team Providers Name Role Phone Gagandeep Hinojosa MD Primary Care Provider Reason for Visit Reason Comments Diabetes Encounter Details Date Type Department Care Team Description 09/27/2015 Nurse Triage [facility] Gagandeep Hinojosa MD Diabetes 1415 [facility] . 1415 [facility] [place] [address] [place] [address] [phone] (Wo rk) Social History Tobacco Use Types Packs/Day Years Used Date Smoking Tobacco: Never Assessed Sex Assigned at Date Recorded Not on file documented as of this encounter Nursing Notes Melanie Smith RN - 09/27/2015 9:40 AM CDT Protocol: DIABETES - HIGH BLOOD [id number] Affirmative: Blood glucose > 400 mg/dl (22 mmol/l) Disposition of Call PCP Now suggested. PT took his BS this morning and it was 471. It usually runs in the 150's. He is a little sweaty but otherwise ok. He just took his Insulin , his novolin N and Novolin R . Does not have a sliding scale.Call placed to the law office receptionist, Dr Ding, who recommended that pt give the Insulins time to kick in [facility] in one hour. Pt called back and informed of this. Pt at this time says he feels dizzy and sweaty and not well. He wants to be seen. Recommended that pt be seen. documented in this encounter Plan of Treatment Not on filedocumented as of this encounter Visit Diagnoses Not on filedocumented in this encounter Care Teams Terrazzo Installer Relationship Specialty Start Date End Date Gagandeep Hinojosa MD PCP - General 05/17/12 1415 [facility] [place] [address] Vane Zarate Psychiatrist Psychiatry 03/22/12 documented as of this encounter
--- OUTSIDE RECORDS SUMMARY | 2022-02-14 15:01 | XMS_ITS | Encounter Summary ---
:1970 Author Organization [facility] Address [address], [place] [address] Care Team Providers Name Role Phone Gagandeep Hinojosa MD Primary Care Provider Reason for Visit Reason Comments MANTOUX/PPD Encounter Details Date Type Department Care Team Description 01/26/2016 Nursing Visit [place] [facility] PPD scree miky test Medicine (Primary Dx) 1415 [place] [address] Social History Tobacco Use Types Packs/Day Years [...] SKIN TEST (PPD) (01/29/2016 11:20 AM CDT) [facility] Method Time Signature TB Skin Test 0.0 MM PN POCT Negative Joce Foster MD OPC IMMUNIZATION Performing Organization Address City/State/ZIP Code Phon e Number POCT PN POCT documented in this encounter Visit Diagnoses Diagnosis PPD screening test - Primary Screening examination for pulmonary tube rculosis documented in this encounter Care Teams Business Resiliency Manager Relationship Specialty Start Date End Date Gagandeep Hinojosa MD PCP - General 05/17/12 1415 [facility] [place] [address] Vane Zarate Psychiatrist Psychiatry 03/22/12 documented as of this encounter
--- OUTSIDE RECORDS SUMMARY | 2022-02-14 15:01 | XMS_ITS | Encounter Summary ---
:1970 Author Organization [facility] Address [address] [place] [address] Care Team Providers Name Role Phone Gagandeep Hinojosa MD Primary Care Provider Reason for Visit Reason Comments Prior Authorization Request Encounter Details Date Type Department Care Team Description 07/31/2015 [facility]josa Au thorization [facility] MD [place] Request 1415 [facility] . [address] [place] [address] Ave [phone] [place], [place] [address] Social History Tobacco Use Types Packs/Day Years Used Date Smoking Tobacco: Never Assessed Sex Assigned at Date Recorded Not on file documented as of this encounter Nursing Notes Haley Smith LPN - 08/25/2015 11:20 AM CDT Marco Antonio, has this issue been checked into? MENT ANALYST Gagandeep Hinojosa MD - 08/05/2015 10:09 AM CDT All of these insulins are tier 3 costs. Please call pharmacy. How much would these cost the patient? IT Marco Antonio Malcolm MA - 07/31/2015 3:30 PM CDT PRIOR AUTHORIZATION OR CHANGE MEDICATIONS? Comment: 30 day supply provided, med not covered after Pharmacy Name: [facility] Fax# or Address: [phone] Clinician Name: Ashish Drug Name/Strength: Novolin R 100unit per mL Sig: Inject 76 Units subcutaneously 2 times daily (before meals). BREAKFAST AND DINNER Formulary Alternative: See list in providers inbasket Insurance Carrier: [facility] Would you like to switch pt to formulary alternative (see list in your inbasket) or start PA for Novolin? documented in this encounter Plan of Treatment Not on filedocumented as of this encounter Visit Diagnoses Not on filedocumented in this encounter Care Teams Recruitment Specialist Relationship Specialty Start Date End Date Gagandeep Hinojosa MD PCP - General 05/17/12 [facility] [place] [address] Vane Zarate Psychiatrist Psychiatry 03/22/12 documented as of this encounter
--- OUTSIDE RECORDS SUMMARY | 2022-02-14 15:01 | XMS_ITS | Encounter Summary ---
:1970 Author Organization [employer] Address [address] [place] [address] Care Team Providers Name Role Phone Gagandeep Hinojosa MD Primary Care Provider Reason for Referral Consult/Transfer Care (Routine) - Closed Specialty Diagnoses / Procedures Referred By Contact Refer red To Contact Diagnoses Uncontrolled type 2 diabetes mellitus with hyperglycemia, with long-term current use of insulin (HRC) Gagandeep Hinojosa MD [address] [facility] [place] [address] Referral ID Status Reason Start Date Expiration Date Visits Requ ested Visits Authorized [id number] Closed 06/21/2016 09/20/2017 1 1 Scheduling Instructions Your provider has recommended an appoint ment with [facility]. You may call [phone] to schedule your a ppointment. If you do not schedule an appointment within the next 1 to 3 busin ess days, we will call you to help arrange your appointment. We suggest you call [employer] about your coverage and benefits for this appointme nt. LE SCHOOL PRINCIPAL Reason for Visit Reason Onset Date Comments [facility] Phone Visit 06/21/2016 Encounter Details Date Type Department Care Team Description 06/21/2016 Care Coord Phone Judy Luke R N [facility] Phone Visit Medicine [address] [facility] 1415 [facility] . [place] [address] [place] [address] [phone] Social History Tobacco Use Types Packs/Day Years [...] RN - 06/21/2016 10:40 AM CST RN Therapist Respiratory - Diabetes Follow-Up Current diabetes medication regimen: [...] of hypoglycemia. He reports he went to [facility] for evaluation of his dx Bipolar Disorder [...] calm him, also offering to have our Rn Mobile, Lesly Rodrigues, call later this week to [...] with plan of care and follow up. LE SCHOOL PRINCIPAL documented in this encounter Plan of Treatment Scheduled Referrals Name Type Priority Associated Diagnoses Order S [facility] Endocrinology Referral Routine Uncontrolled type 2 Ordered : 06/21/2016 Consult-Adults diabetes mellitus with hyperglycemia, with long-term current use of insulin (HRC) documented as of this encounter Visit Diagnoses Diagnosis Uncontrolled type 2 diabetes mellitus wi th hyperglycemia, with long-term current use of insulin (HRC) - [facility], active care coordinati on documented in this encounter Care Teams Boiler Room Operator Relationship Specialty Start Date End Date Gagandeep Hinojosa MD PCP - General 05/17/12 [address] [place] [address] Vane Zarate Psychiatrist Psychiatry 03/22/12 documented as of this encounter
--- OUTSIDE RECORDS SUMMARY | 2022-02-14 15:01 | XMS_ITS | Encounter Summary ---
:1970 Author Organization [employer] Address [address] [place] [address] Care Team Providers Name Role Phone Gagandeep Hinojosa MD Primary Care Provider Reason for Visit Reason Comments Diabetes NUMBNESS Nicotine Dependence Encounter Details Date Type Department Care Team Description 11/04/2015 Office Visit Gagandeep Storm Type 2 d iabetes mellitus, uncontrolled ([facility]) (Primary Dx); Romario Rubio MD Need for Tdap vaccination; [address] [place] [address] Dilip Nonspeci fic abnormal results of liver function study; Ave. Ave Atherosclerosis of coronary artery, dequan na presence unspecified, unspecified vessel or lesion type, unspecified whether habematolel or transplanted heart ([facility]); [place] [address] [place] roasterman current use of ins ulin ([facility]); [phone] Long-term insulin use in type 2 diabetes ([facility]); [phone] Hyperlipidemia, unspecified hyperlipidemia type; (Work) Tobacco use disorder; [phone] Obesity, unspec ified obesity severity, unspecified obesity [...] patch onto the skin. 03/27/2015: Received from: [facility] ??? omega-3 fatty acids-fish oil 340-1,000 mg [...] diabetes mellitus without mention of complication, uncontrolled ([facility])E11.65 lisinopril (PRINIVIL, ZESTRIL) 5 mg tablet insulin NPH (NOVOLIN N) 100 unit/mL Susp insulin regular (NOVOLIN R) 100 unit/mL injection lisinopril (PRINIVIL, ZESTRIL) 5 mg tablet 2. Need for Tdap vaccination Z23 Tdap (BOOSTRIX) 3. Liver Function Tests Abnormal R94.5 Hepatic Function Panel 4. Atherosclerosis of coronary artery, angina presence unspecified, unspecified vessel or lesion type, unspecified whether habematolel or transplanted heart I25.10 lisinopril (PRINIVIL, ZESTRIL) [...] yes strongly encouraged to consider smoking cessation [facility] documented in this encounter Plan of Treatment [...] Need for prophylactic vaccination with c ombined jzqkybvuhr-yfmblwn-etnxobuez (DTP) vaccine Nonspecific abnormal results of liver fu nction study Atherosclerosis of coronary artery, dequan na presence unspecified, unspecified vessel or lesion type, unspecified whether savannah ve or transplanted heart (HRC) roasterman current use of insulin (HRC) Encounter for [...] (HRC) documented in this encounter Care Teams Quality Control Assessor Relationship Specialty Start Date End Date Gagandeep Hinojosa MD PCP - General 05/17/12 [address] [place] [address] Vane Zarate Psychiatrsamantha Psychiatry 03/22/12 documented as of this encounter
--- OUTSIDE RECORDS SUMMARY | 2022-02-14 15:01 | XMS_ITS | Encounter Summary ---
:1970 Author Organization [employer] Address [address] [place] [address] Care Team Providers Name Role Phone Gagandeep Hinojosa MD Primary Care Provider Reason for Visit Reason Comments Diabetes Letter needs letter for work re ralph traore Encounter Details Date Type Department Care Team Description 02/24/2016 Office Visit Gagandeep Storm Uncontro lled type 2 diabetes mellitus without complication, with long-term current use of insulin (HRC) (Primary Dx); Romario Rubio MD Encounter for immunization; [address] [place] 1415 [facility] Tobacco use disorder; Ave. Ave Uncontrolled type 2 diabetes mellitus wi thout complication, with long-term current use of insulin (HRC) [E11.65, Z79.4]; [place] Vigil [address] K[place] VIGIL Hyperlipidemia, unspecified hyperlipidemia type (HRC) [E78.5]; [phone] [id number] Financial difficulties Social History Tobacco Use [...] stable. Stable weight. 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 Aspirin: [...] 3. Tobacco use disorder (HR) F17.200 TOBACCO-USE ACCOUNTING SYSTEM EXPERT 3-10 MIN (SYMPTOMATIC) 4. Uncontrolled type 2 [...] Results (ABNORMAL) Microalb/Creat Ratio (06/09/2016 10:18 AM PHARMACOLOGIST) [facility] Signature Microalbumin 80.1 mg/L PN SOFT Urine U Creat Random 102 mg/dL PN SOFT Microalbumin/Crea 78.5 (H) 0.0 - PN SOFT tinine Ratio 30.0 Specimen Anatomical Collection Method Collection Time Receive d Time (Source) Location / / Volume Laterality Urine specimen 06/09/2016 10:18 7 (specimen) AM PHARMACOLOGIST 11:38 AM PHARMACOLOGIST Narrative PN SOFT - 06/09/2016 2:09 PM PHARMACOLOGIST Performed at [facility], [facility] [address] [place] [address] CLIA number [id number] Gagandeep Hinojosa MD LAB_1 Performing Organization Address [facility] Phon e Number PN SOFT [address] [place] [address] (ABNORMAL) Lipid Panel and Direct LDL(If Needed) (06/09/2016 9:22 AM PHARMACOLOGIST) [facility] Signature Cholesterol 123 0 - 199 PN [...] / Volume Laterality 06/09/2016 9:22 AM 7 PHARMACOLOGIST 11:38 AM PHARMACOLOGIST Narrative PN SOFT - 06/09/2016 12:25 PM PHARMACOLOGIST Performed at [facility], [address] [place] [address] CLIA number [id number] Gagandeep Hinojosa MD LAB_1 Performing Organization Address [facility] Phon e Number PN SOFT [address] [place] [address] (ABNORMAL) POCT Glycosylated Hemoglobin (HB A1C) (06/09/2016 9:22 AM PHARMACOLOGIST) Patholo gist Method Time Signature Glycosolated HGB [...] Volume Laterality 06/09/2016 9:22 AM 7 9:22 PHARMACOLOGIST AM PHARMACOLOGIST Narrative PN SOFT - 06/09/2016 9:45 AM PHARMACOLOGIST Performed at [facility], [address] [place] [address] CLIA number [id number] Gagandeep Hinojosa MD LAB_1 Performing Organization Address City/State/ZIP Code Phon e Number PN SOFT [address] [place] [address] [phone] documented in this encounter Visit Diagnoses Diagnosis [...] resources documented in this encounter Care Teams Milk Deliverer Relationship Specialty Start Date End Date Gagandeep Hinojosa MD PCP - General 05/17/[address] [place] [address] Vane Zarate Psychiatrsamantha Psychiatry 03/22/12 documented as of this encounter
--- OUTSIDE RECORDS SUMMARY | 2022-02-14 15:01 | XMS_ITS | Encounter Summary ---
:1970 Author Organization [employer] Address [address] [place] [address] Care Team Providers Name Role Phone Gagandeep Hinojosa MD Primary Care Provider Reason for Visit Reason Comments MEDICATION THERAPY MANAGEMENT Nicotine Dependence Encounter Details Date Type Department Care Team Description 03/05/2016 Office Visit [facility] Medication Maddy Crane, Tobacc o abuse Management PharmD (Primary Dx) [address] [address] [facility] [phone] [place], [place] [id number] (Wo rk) Social History Tobacco Use Types [...] keep yourself occupied for that time! Play Layer[employer], [employer] games, going for walks, word searches, chew [...] life! Any questions or concerns, please call [phone] or contact me via [employer]. Maddy Crane, [facility] Medication Management Pharmacist Changes Your Body [...] morning Keep cigarettes far away from bed Bradley teeth and rinse with mouthwash as soon [...] something else in your mouth After Meals Bradley teeth or rinse with mouthwash Chew sugarless [...] disappear after 2-4 weeks. Tobacco Cessation Resources [employer]ZOCKO ?? 2 weeks of nicotine replacement gum, [...] for smart phones ?? SmokeFree ?? MyQuit Advertising Production Manager ([place]oyda) ?? Stop Smoking - Mindfulness Meditation ?? Quit Pal ([employer] [facility] [place]) ?? My QuitBuddy ?? My Last Cigarette E OPERATOR documented in this encounter Progress Notes Maddy Crane, PharmD - 03/05/2016 1:17 PM CST Timur Krisnhamurthy is a 46 y.o. male coming in for an initial visit for smoking cessation. He was referred to me from Judy Pittman, RNCC. His primary care provider is Gagandeep Hinojosa MD. Comments/concerns are: smoking cessation. Current medication list is in [employer] and was reviewed. Allergies Allergen Reactions ??? [...] with patient is 30 minutes. Maddy Crane [facility] Medication Management Pharmacist [facility] Medication Management Med Mgmt Smartform completed: yes Follow-up Med Mgmt appointment scheduled: no Added to Care Team: yes MAP/CMS Letter required: No Completed: No E OPERATOR documented in this encounter Plan of Treatment Not on filedocumented as of this encounter Visit Diagnoses Diagnosis Tobacco abuse (HRC) - Primary Tobacco use disorder documented in this encounter Care Teams Mechanical Reliability Engineer Relationship Specialty Start Date End Date Gagandeep Hinojosa MD PCP - General 05/17/12 [address] [place] [address] Vane Zarate Psychiatrist Psychiatry 03/22/12 documented as of this encounter
--- OUTSIDE RECORDS SUMMARY | 2022-02-14 15:01 | XMS_ITS | Encounter Summary ---
:1970 Author Organization [employer] Address [address], [place] [address] Care Team Providers Name Role Phone Gagandeep Hinojosa MD Primary Care Provider Reason for Visit Reason Onset Date Comments Medication Request 02/25/2016 Jaxson Muhammad Encounter Details Date Type Department Care Team Description 02/25/2016 Telephone [place] [facility] Gagandeep Hinojosa, Medic ation Request Medicine (Jaxson R) 1415 [facility] . 1415 [place] [address] [place], [place] [address] (Wo rk) Social History Tobacco Use Types [...] Med not covered Pharmacy Name: [facility] Fax# or Address: [phone] Clinician Name: Ashish Drug Name/Strength: Humulin R [...] Primary documented in this encounter Care Teams Resolution Manager Relationship Specialty Start Date End Date Gagandeep Hinojosa MD PCP - General 05/17/12 1415 [facility] [place] [address] Vane Zarate Psychiatrist Psychiatry 03/22/12 documented as of this encounter
--- OUTSIDE RECORDS SUMMARY | 2022-02-14 15:01 | XMS_ITS | Encounter Summary ---
:1970 Author Organization [employer] Address [address], [place] [address] Care Team Providers Name Role Phone Gagandeep Hinojosa MD Primary Care Provider Reason for Visit Reason Onset Date Comments Medication Request 06/09/2016 Encounter Details Date Type Department Care Team Description 06/09/2016 [facility] Gagandeep Hinojosa MD Medication Request 1415 [facility] . 1415 [facility] [place] [address] [place] [address] [phone] (Wo rk) Social History Tobacco Use Types [...] Test Strips ?? One Touch Delica Lancets PERSON Piper Mederos - 06/09/2016 10:58 AM CST Pt calling back with diabetes supply information. -One Touch Ultra II Meter -One Touch Ultra Touch Test Strips -One Touch Delica Lancets PERSON documented in this encounter Plan of Treatment Not on filedocumented as of this encounter Visit Diagnoses Diagnosis Uncontrolled type 2 diabetes mellitus wi th diabetic polyneuropathy, with long-term current use of insulin - Primary documented in this encounter Care Teams Plastic Mixer Relationship Specialty Start Date End Date Gagandeep Hinojosa MD PCP - General 05/17/12 [facility]15 [facility] [address] Vane Zarate Psychiatrsamantha Psychiatry 03/22/12 documented as of this encounter
--- OUTSIDE RECORDS SUMMARY | 2022-02-14 15:01 | XMS_ITS | Encounter Summary ---
:1970 Author Organization [employer] Address [address] [place] [address] Care Team Providers Name Role Phone Gagandeep Hinojosa MD Primary Care Provider Encounter Details Date Type Department Care Team Description 02/24/2016 Lab Visit [facility] Uncontrolled type 2 diabetes mellitus with diabetic polyneuropathy, with long- term current use of insulin (HRC); [address] Nonspecific abnormal results of liver function study [place] Vigil [address] Social History Tobacco Use Types Packs/Day Years [...] - 02/24/2016 4:26 PM CDT Performed at [facility], [address] [place] [address] CLIA number [id number] Gagandeep Hinojosa MD LAB_1 Performing Organization Address [facility] Phon e Number PN SOFT [address] [place] [address] (ABNORMAL) POCT Glycosylated Hemoglobin (HB A1C) (02/24/2016 10:56 AM CDT) [facility] Method Time Signature Glycosolated HGB 10.9 (H) [...] - 02/24/2016 11:30 AM CDT Performed at [facility], [facility] [place] [address] CLIA number [id number] Gagandeep Hinojosa MD LAB_1 Performing Organization Address [facility] Phon e Number PN SOFT [address] [place] [address] Extra Serum Separator Tube (yellow) (02/24/2016 10:54 AM CDT) athologist Signature Extra SST Top Drawn PN SOFT Drawn Specimen (Source) Anatomical Location Collection Method / Collectio n Time Received Time / Laterality Volume Narrative REINA KENDAL - 02/24/2016 10:54 AM CDT Performed at [facility], [address] [place] [address] CLIA number [id number] Gagandeep Hinojosa MD LAB_1 Performing Organization Address City/State/ZIP Code Phon e Number PN KENDAL [address] [place] [address] documented in this encounter Visit Diagnoses Diagnosis Uncontrolled type 2 diabetes mellitus wi th diabetic polyneuropathy, with long-term current use of insulin Nonspecific abnormal results of liver fu nction study documented in this encounter Care Teams Escalator Mechanic Relationship Specialty Start Date End Date Gagandeep Hinojosa MD PCP - General 05/17/[address] [place] [address] [place] [address] Vane Zarate Psychiatrsamantha Psychiatry 03/22/12 documented as of this encounter
--- OUTSIDE RECORDS SUMMARY | 2022-02-14 15:01 | XMS_ITS | Encounter Summary ---
:1970 Author Organization [employer] Address [address] [place] [address] Care Team Providers Name Role Phone Gagandeep Hinojosa MD Primary Care Provider Reason for Visit Reason Comments MANTOUX/PPD READ Encounter Details Date Type Department Care Team Description 01/29/2016 Nursing Visit [facility] Encounter for PPD skin Medicine test reading (Primary 1415 [facility] . Dx) [place] Vigil [address] Social History Tobacco Use Types Packs/Day Years [...] imary documented in this encounter Care Teams News Writer Relationship Specialty Start Date End Date Gagandeep Hinojosa MD PCP - General 05/17/[address] [facility] [place] [address] Vane Zarate Psychiatrist Psychiatry 03/22/12 documented as of this encounter
--- OUTSIDE RECORDS SUMMARY | 2022-02-14 15:01 | XMS_ITS | Encounter Summary ---
:1970 Author Organization [employer] Address [address] [place] [address] Care Team Providers Name Role Phone Gagandeep Hinojosa MD Primary Care Provider Reason for Visit Reason Onset Date Comments [facility] Phone Visit 02/24/2016 Encounter Details Date Type Department Care Team Description 02/24/2016 Care Coord Phone Judy Luke R N [facility] Phone Visit Medicine 1415 [facility] 1415 [facility] [place] [address] [place] [address] [phone] Social History Tobacco Use Types Packs/Day Years [...] Pittman RN - 02/26/2016 1:59 PM CDT Piping Design Specialist - Phone Call Contact with: Rustam Reason [...] but Rustam states she is shy around medical collections representative and wouldn't feel comfortable talking to me. [...] of Tresiba U200 received and entered into [employer]. Insulin is stored in the Injection Room [...] Pittman RN - 02/24/2016 2:42 PM CDT Piping Design Specialist - Phone Call Contact with: Rustam Reason [...] insulin. Shared plan: Left message for [employer] Rep to request samples of Tresiba. Rustam [...] disorder documented in this encounter Care Teams Maintenance Instructor Relationship Specialty Start Date End Date Gagandeep Hinojosa MD PCP - General 05/17/[address] [place] [address] Vane Zarate Psychiatrist Psychiatry 03/22/12 documented as of this encounter
--- OUTSIDE RECORDS SUMMARY | 2022-02-14 15:01 | XMS_ITS | Encounter Summary ---
:1970 Author [facility] Address [address] [place] [address] Care Team Providers Name Role Phone Gagandeep Hinojosa MD Primary Care Provider Reason for Visit Reason Onset Date Comments [facility] Phone Visit 06/17/2016 Encounter Details Date Type Department Care Team Description 06/17/2016 Care Coord Phone Judy Luke R N [facility] Phone Visit Medicine 1415 [facility] 1415 [facility] [address] [place] [address] [phone] Social History Tobacco Use Types Packs/Day Years [...] RN - 06/17/2016 9:31 AM CST RN Crepe Sole Wire Brusher - Diabetes Follow-Up Current diabetes medication regimen: [...] current insulin regimen. Plans to go to [facility] and pursue inpatient admission for mental health. Phone follow up to review DM options once mental health is stable. Call if sx of hypoglycemia or glucose readings < 70 mg/dL. Rustam verbalized understanding and agreed with plan of care and follow up. EMS LEAD documented in this encounter Plan of Treatment Not on filedocumented as of this encounter Visit Diagnoses Diagnosis Health residential, active care coordinati on - Primary Bipolar I disorder (HRC) Bipolar I disorder, most recent episode (or current) unspecified Uncontrolled type 2 diabetes mellitus wi th hyperglycemia, with long-term current use of insulin (HRC) documented in this encounter Care Teams Stunner Relationship Specialty Start Date End Date Gagandeep Hinojosa MD PCP - General 05/17/12 [address] [place] [address] Vane Zarate Psychiatrist Psychiatry 03/22/12 documented as of this encounter
--- OUTSIDE RECORDS SUMMARY | 2022-02-14 15:01 | XMS_ITS | Encounter Summary ---
:1970 Author Organization [employer] Address [address] [place] [address] Care Team Providers Name Role Phone Gagandeep Michaud MD Primary Care Provider Reason for Visit Reason Onset Date Comments Medication Request 04/02/2016 divalproex (DEPAKOTE ) 500 MG enteric coated tablet Encounter Details Date Type Department Care Team Description 04/02/2016 Telephone [facility] Gagandeep Michaud, Medic ation Request Medicine (divalproex (DEPAKOTE) [address] 500 MG enteric coated [place] [address] [place] [address] tablet) [phone] (Wo rk) Social History Tobacco Use Types [...] today, request sent to PCP to address OME WAGON HOST/HOSTESS Cristal Vilchis - 04/02/2016 2:00 PM CST Pt is requesting to discuss if Dr. Michaud would be willing to refill medication. Pt states he willbe out of medication on 04/03/16. OME WAGON HOST/HOSTESS Interface, Out Surescripts Prov Query - 04/02/2016 [...] Acid (serum): Taken on 11/04/2015 Powered by [employer], Reference: [id number], 04/02/2016 12:15:01 PM WELCOME WAGON HOST/HOSTESS, Pool: MANUEL REFILL ([id number]) OME WAGON HOST/HOSTESS Clair Simpson - 04/02/2016 12:13 PM CST Pt is out of Rx, and doctor out for the week OME WAGON HOST/HOSTESS documented in this encounter Plan of Treatment Not on filedocumented as of this encounter Visit Diagnoses Not on filedocumented in this encounter Care Teams Passenger Barge Master Relationship Specialty Start Date End Date Gagandeep Michaud MD PCP - General 05/17/12 [facility]5 [facility] [address] Vane Zarate Psychiatrist Psychiatry 03/22/12 documented as of this encounter
--- OUTSIDE RECORDS SUMMARY | 2022-02-14 15:01 | XMS_ITS | Encounter Summary ---
:1970 Author Organization [facility] Address [address] [place] [address] Care Team Providers Name Role Phone Gagandeep Hinojosa MD Primary Care Provider Reason for Visit Reason Comments Test Request Encounter Details Date Type Department Care Team Description 11/03/2015 Telephone [facility] Gagandeep Hinojosa MD Test Request 1415 [facility] . [address] [place] [address] [place] [address] [phone] (Wo rk) Social History Tobacco Use Types [...] Lab orders requested. Next Steps: Route to [facility] for patient follow up. Additional Information: Pt [...] tomorrow. *If symptom related, send to triage Multimedia Author: Timur Krishnamurthy Best call back number: [phone] cell vm/y Is it OK to leave a confidential message on this voicemail? yes PANNER documented in this encounter Plan of Treatment Not on filedocumented as of this encounter Visit Diagnoses Diagnosis Bipolar I disorder (HRC) Bipolar I disorder, most recent episode (or current) unspecified Hyperlipidemia with target LDL less than 70 (HRC) Other and unspecified hyperlipidemia documented in this encounter Care Teams Assistant Director Of Residence Life Relationship Specialty Start Date End Date Gagandeep Hinojosa MD PCP - General 05/17/12 [facility]5 [facility] [place] [address] Vane Zarate Psychiatrist Psychiatry 03/22/12 documented as of this encounter
--- OUTSIDE RECORDS SUMMARY | 2022-02-14 15:01 | XMS_ITS | Encounter Summary ---
:1970 Author Organization [facility] Address [address] [place] [address] Care Team Providers Name Role Phone Gagandeep Hinojosa MD Primary Care Provider Reason for Visit Reason Comments Registry Encounter Details Date Type Department Care Team Description 11/07/2015 Notes/Orders [facility] Gagandeep Hinojosa MD 1415 [facility] . [address] [place] [address] [place] [address] [phone] (Wo rk) Social History Tobacco Use Types Packs/Day Years Used Date Smoking Tobacco: Never Assessed Sex Assigned at Date Recorded Not on file documented as of this encounter Plan of Treatment Not on filedocumented as of this encounter Visit Diagnoses Not on filedocumented in this encounter Care Teams Grain Spouter Relationship Specialty Start Date End Date Gagandeep Hinojosa MD PCP - General 05/17/12 1415 [facility] [address] Vane Zarate Psychiatrist Psychiatry 03/22/12 documented as of this encounter
--- OUTSIDE RECORDS SUMMARY | 2022-02-14 15:02 | XMS_ITS | Encounter Summary ---
:1970 Author Organization [employer] Address [address], [place] [address] Care Team Providers Name Role Phone Gagandeep Hinojosa MD Primary Care Provider Encounter Details Date Type Department Care Team Description 09/18/2014 Hospital Encounter Heart & Vascular Chest pain, unspecified Center Nuclear (Primary Dx) Cardiology [address] [place] [address] Social History Tobacco Use Types [...] CONVERSION - 09/18/2014 10:10 AM CDT Loading... [facility] [address] [facility] [place] [address] ?? Results STRESS TEST PHARMACOLOGICAL ( (Order [id number]) ? Original Order Diagnosis Diagnosis Chest pain, [...] Result History ??STRESS TEST PHARMACOLOGICAL (Order #[id number]) on 09/18/14 - Order Result History Report. ?? Hard Copy Result Report ??Open Hard Copy Result Report (Order#[id number] - STRESS TEST PHARMACOLOGICAL) ?? STRESS TEST PHARMACOLOGICAL (Accession A [id number]) (Order [id number]) ?Image Documentation: Technologist ?No findings ? Removed from In Basket ??Done By ??Kailash Green DO on 09/23/2014 10: 08 PM ?? Patient Release Status: ?This result is not viewable by the irlanda garcia. ?? Patient Information ??Patient Name Sex ??Timur Krishnamurthy ([id number]) Mal e 1970 ?Room Bed Code Status ??2217 Prior ?? Order STRESS TEST PHARMACOLOGICAL [[id number]] (A ccession [id number]) (Order [id number]) Order Requisition ??STRESS TEST PHARMACOLOGICAL (Order #[id number]) on 09/18/14 ?? Priority and Order Details ??Priority Class ??Routine Hospital Performed ? Quantity ??Ordering Quantity ??1 ?? Order Information ??Date Department Released By Pankaj ambrosio ??09/18/2014 [facility], Order Release Kailash Green DO ?? [...] Information ??Recipient Phone ??Kailash Green DO, DO [[id number] [phone] ?? Appointments for this Order ??09/18/2014 ??9:00 [...] irlanda garcia. ?? Timur Krishnamurthy (MR # [id number]) P arnel at 09/24/14 10:09 AM Kailash Green DO PN CARDIAC SERVICES ORDERABL ES Performing Organization Address City/State/ZIP Code Phon e Number HP CONVERSION documented in this encounter Visit Diagnoses Diagnosis Chest pain, unspecified - Primary documented in this encounter Care Teams Oyster Sorter Relationship Specialty Start Date End Date Gagandeep Hinojosa MD PCP - General 05/17/12 [address] [place] [address] Vane Zarate Psychiatrist Psychiatry 03/22/12 documented as of this encounter
--- OUTSIDE RECORDS SUMMARY | 2022-02-14 15:02 | XMS_ITS | Encounter Summary ---
:1970 Author Organization [employer] Address [address] [place] [address] Care Team Providers Name Role Phone Gagandeep Hinojosa MD Primary Care Provider Reason for Visit Reason Comments [facility] Phone Visit Encounter Details Date Type Department Care Team Description 03/11/2015 Care Coord Phone Judy Luke R N [facility] Phone Visit Medicine 1415 [facility] 1415 [facility] [place] [address] [place] [address] [phone] Social History Tobacco Use Types Packs/Day Years Used Date Smoking Tobacco: Never Assessed Sex Assigned at Date Recorded Not on file documented as of this encounter Progress Notes Judy Pittman, RN - 03/17/2015 12:29 PM CST Assistant Professor Of Business - Phone Call Contact with: Rustam Reason [...] Medicare and reach the Coverage Gap through [employer] and Vianney Huma, however Rustam's income is [...] with plan of care and follow up. WORKER documented in this encounter Plan of Treatment Not on filedocumented as of this encounter Visit Diagnoses Diagnosis Complex care coordination - Primary Type 2 diabetes mellitus, uncontrolled Type II or unspecified type diabetes jasen litus without mention of complication, uncontrolled Inadequate community resources documented in this encounter Care Teams Administrative Program Specialist Relationship Specialty Start Date End Date Gagandeep Hinojosa MD PCP - General 05/17/12 1415 [facility] [place] [address] Vane Zarate Psychiatrist Psychiatry 03/22/12 documented as of this encounter
--- OUTSIDE RECORDS SUMMARY | 2022-02-14 15:02 | XMS_ITS | Encounter Summary ---
:1970 Author Organization [facility] Address [address] [place] [address] Care Team Providers Name Role Phone Gagandeep Hinojosa MD Primary Care Provider Encounter Details Date Type Department Care Team Description 07/22/2015 Notes/Orders [facility] Gagandeep Hinojosa MD [address] [facility] . [address] [place] [address] [place] [address] [phone] (Wo rk) Social History Tobacco Use Types Packs/Day Years Used Date Smoking Tobacco: Never Assessed Sex Assigned at Date Recorded Not on file documented as of this encounter Plan of Treatment Not on filedocumented as of this encounter Visit Diagnoses Not on filedocumented in this encounter Care Teams Ream Cutter Relationship Specialty Start Date End Date Gagandeep Hinojosa MD PCP - General 05/17/12 1415 [facility] [place] [address] Vane Zarate Psychiatrsamantha Psychiatry 03/22/12 documented as of this encounter
--- OUTSIDE RECORDS SUMMARY | 2022-02-14 15:02 | XMS_ITS | Encounter Summary ---
:1970 Author Organization [facility] Address [address] [place] [address] Care Team Providers Name Role Phone Gagandeep Hinojosa MD Primary Care Provider Encounter Details Date Type Department Care Team Description 02/18/2015 Notes/Orders [place] [facility] Gagandeep Hinojosa Type 2 d layo Rubio MD mellitus, uncontrolled [address] 1415 [facility] (Primary Dx) [place] [address] Ave [phone] [facility]3 79 Social History Tobacco Use Types Packs/Day Years Used Date Smoking Tobacco: Never Assessed Sex Assigned at Date Recorded Not on file documented as of this encounter Miscellaneous Notes Letter - Gagandeep Hinojosa MD - 02/18/2015 12:00 AM CDT 02/18/2015 Timur Krishnamurthy [address] [place] [id number] : 1970 Dear Timur: I am contacting you with a reminder that it is time for your diabetes visit , please call [phone] to schedule your visit due in February. [...] You can schedule your lab appointment at [phone]. Please continue to take your medications as prescribed. We look forward to seeing you again. Gagandeep Hinojosa MD ANICAL PROJECT ENGINEER documented in this encounter Plan of Treatment Not on filedocumented as of this encounter Visit Diagnoses Diagnosis Type 2 diabetes mellitus, uncontrolled - Primary Type II or unspecified type diabetes jasen litus without mention of complication, uncontrolled documented in this encounter Care Teams Doubler Operator Relationship Specialty Start Date End Date Gagandeep Hinojosa MD PCP - General 05/17/12 1415 [facility] [place] [address] Vane Zarate Psychiatrist Psychiatry 03/22/12 documented as of this encounter
--- OUTSIDE RECORDS SUMMARY | 2022-02-14 15:02 | XMS_ITS | Encounter Summary ---
:1970 Author Organization [facility] Address [address] [place] [address] Care Team Providers Name Role Phone Gagandeep Hinojosa MD Primary Care Provider Encounter Details Date Type Department Care Team Description 03/27/2015 Lab Visit [facility] Type 2 diabetes mellitus, [address] [place] [address] Social History Tobacco Use Types Packs/Day Years Used Date Smoking Tobacco: Never Assessed Sex Assigned at Date Recorded Not on file documented as of this encounter Plan of Treatment Not on filedocumented as of this encounter Procedures Procedure Name Priority Date/Time Associated Diagnosis Comme nts HGB A1C Routine 03/27/2015 2:34 PM Type 2 diabetes Resul ts for this SPEECH LANGUAGE SPECIALIST mellitus, uncontrolled proce dure are in ([facility]) the results section. documented in this encounter Results (ABNORMAL) Hgb A1c (03/27/2015 2:34 PM SPEECH LANGUAGE SPECIALIST) athologist Signature HGB A1C 10.9 (H) 4.0 - 5.6 % HP CONVERSION Specimen Anatomical Collection Method Collection Time Receive d Time (Source) Location / / Volume Laterality 03/27/2015 2:34 PM 5 7:20 SPEECH LANGUAGE SPECIALIST PM SPEECH LANGUAGE SPECIALIST Narrative HP CONVERSION - 03/28/2015 10:19 AM SPEECH LANGUAGE SPECIALIST Performed at [facility] [place] [address] [place] [address] CLIA number [id number] Gagandeep Hinojosa MD LAB_1 Performing Organization Address City/State/ZIP Code Phon e Number HP CONVERSION documented in this encounter Visit Diagnoses Diagnosis Type 2 diabetes mellitus, uncontrolled Type II or unspecified type diabetes jasen litus without mention of complication, uncontrolled documented in this encounter Care Teams Boat Repairer Relationship Specialty Start Date End Date Gagandeep Hinojosa MD PCP - General 05/17/12 1415 [facility] [place] [address] Vane Zarate Psychiatrist Psychiatry 03/22/12 documented as of this encounter
--- OUTSIDE RECORDS SUMMARY | 2022-02-14 15:02 | XMS_ITS | Encounter Summary ---
:1970 Author Organization [facility] Address [address] [address] Care Team Providers Name Role Phone Gagandeep Hinojosa MD Primary Care Provider Encounter Details Date Type Department Care Team Description 04/02/2015 Notes/Orders [facility] Gagandeep Hinojosa MD 1415 [facility] . [address] [place] [address] [place] [address] [phone] (Wo rk) Social History Tobacco Use Types Packs/Day Years Used Date Smoking Tobacco: Never Assessed Sex Assigned at Date Recorded Not on file documented as of this encounter Plan of Treatment Not on filedocumented as of this encounter Visit Diagnoses Not on filedocumented in this encounter Care Teams Millinery Blocker Relationship Specialty Start Date End Date Gagandeep Hinojosa MD PCP - General 05/17/12 1415 [facility] [place] [address] Vane Zarate Psychiatrsamantha Psychiatry 03/22/12 documented as of this encounter
--- OUTSIDE RECORDS SUMMARY | 2022-02-14 15:02 | XMS_ITS | Encounter Summary ---
:1970 Author Organization [employer] Address [address] [place] [address] Care Team Providers Name Role Phone Gagandeep Hinojosa MD Primary Care Provider Encounter Details Date Type Department Care Team Description 07/18/2015 Lab Visit [facility] Type 2 diabetes mellitus, un controlled ([facility]); [address] Microalbuminuria; [place] [address] Hyperlipidemia; [phone] Essential hyper tension Social History Tobacco Use [...] mellitus, uncontrolled proc edure are in NEEDED) ([facility]) the results Type 2 diabetes section. mellitus, uncontrolled ([facility]) Hyperlipidemia CREATININE / GFR Routine [...] (ABNORMAL) Microalb/Creat Ratio (07/18/2015 9:12 AM CDT) [facility] Method Time Signature Microalbumin 349.6 mg/L HP CONVERSION Urine U Creat Random 254 mg/dL HP CONVERSION Microalbumin/Cre 137.6 (H) 0.0 - HP CONVERSION atinine Ratio 30.0 Specimen Anatomical Collection Method Collection Time Receive d Time (Source) Location / / Volume Laterality 07/18/2015 9:12 AM 6 CDT 11:32 AM CDT Narrative HP CONVERSION - 07/18/2015 12:56 PM CDT Performed at [facility], [address] [place], [place] [address] CLIA number [id number] Gagandeep Hinojosa MD LAB_1 Performing Organization Address [facility] Phon e Number HP CONVERSION (ABNORMAL) POCT GLYCOSYLATED HEMOGLOBIN (HB A1C) (07/18/2015 9:01 AM CDT) [facility] Time Signature Glycosolated HGB 12.1 (H) 4.0 [...] - 07/18/2015 9:15 AM CDT Performed at [facility], [address] [place] [address] CLIA number [id number] Gagandeep Hinojosa MD LAB_1 Performing Organization Address City/[facility] Phon e Number HP CONVERSION (ABNORMAL) Creatinine / GFR (07/18/2015 9:01 AM CDT) [facility] Method Time Signature Creatinine 0.60 (L) [...] - 07/18/2015 12:47 PM CDT Performed at [facility], [address] [place] [address] CLIA number [id number] Gagandeep Hinojosa MD LAB_1 Performing Organization Address [facility] Phon e Number HP [...] - 07/18/2015 12:47 PM CDT Performed at [facility], [address] [place] [address] CLIA number [id number] Gagandeep Hinojosa MD LAB_1 Performing Organization Address [facility] Phon e Number HP [...] - 07/18/2015 12:47 PM CDT Performed at [facility], [address] [place] [address] CLIA number [id number] Gagandeep Hinojosa MD LAB_1 Performing Organization Address [facility] Phon e Number HP CONVERSION EXTRA SERUM SEPARATOR TUBE (YELLOW) (07/18/2015 8:48 AM CDT) athologist Signature Extra SST Top Drawn HP CONVERSION Drawn Specimen (Source) Anatomical Collection Method Collection Time Re ceived Time Location / / Volume Laterality 07/18/2015 8:48 AM CDT Narrative HP CONVERSION - 07/18/2015 8:48 AM CDT Performed at [facility], [facility] [place] [address] CLIA number [id number] Gagandeep Hinojosa MD LAB_1 Performing Organization Address [facility] Phon e Number HP CONVERSION documented in this encounter Visit Diagnoses Diagnosis Type 2 diabetes mellitus, uncontrolled Type II or unspecified type diabetes jasen litus without mention of complication, uncontrolled Microalbuminuria Proteinuria Hyperlipidemia (HRC) Other and unspecified hyperlipidemia Essential hypertension (HRC) Unspecified essential hypertension documented in this encounter Care Teams Fabrication Inspector Relationship Specialty Start Date End Date Gagandeep Hinojosa MD PCP - General 05/17/[address] [place] [address] Vane Zarate Psychiatrsamantha Psychiatry 03/22/12 documented as of this encounter
--- OUTSIDE RECORDS SUMMARY | 2022-02-14 15:02 | XMS_ITS | Encounter Summary ---
:1970 Author Organization [facility] Address [address] [place] [address] Care Team Providers Name Role Phone Gagandeep Hinojosa MD Primary Care Provider Reason for Visit Reason Comments Refill Encounter Details Date Type Department Care Team Description 11/27/2014 Refill [facility] Vanessa Ram PA-C Refill 1515 [facility] . [address] [place] [address] [place] [address] [phone] (Wo rk) Social History Tobacco Use Types [...] on filedocumented in this encounter Care Teams Chief Nurse Executive Relationship Specialty Start Date End Date Gagandeep Hinojosa MD PCP - General 05/17/12 1415 [place], [place] [address] Vane Zarate Psychiatrist Psychiatry 03/22/12 documented as of this encounter
--- OUTSIDE RECORDS SUMMARY | 2022-02-14 15:02 | XMS_ITS | Encounter Summary ---
:1970 Author Organization [facility] Address [address] [place] [address] Care Team Providers Name Role Phone Gagandeep Hinojosa MD Primary Care Provider Reason for Visit Reason Comments Refill Encounter Details Date Type Department Care Team Description 07/04/2014 Refill [facility] Vanessa Ram, PAAntoineC Refill 1515 [facility] . [address] [facility] [place] [address] [place] [address] [phone] (Wo rk) Social History Tobacco Use Types Packs/Day Years Used Date Smoking Tobacco: Never Assessed Sex Assigned at Date Recorded Not on file documented as of this encounter Plan of Treatment Not on filedocumented as of this encounter Visit Diagnoses Not on filedocumented in this encounter Care Teams Tooth Grinder Relationship Specialty Start Date End Date Gagandeep Hinojosa MD PCP - General 05/17/12 1415 [place] [address] Vane Zarate Psychiatrist Psychiatry 03/22/12 documented as of this encounter
--- OUTSIDE RECORDS SUMMARY | 2022-02-14 15:02 | XMS_ITS | Encounter Summary ---
:1970 Author Organization [facility] Address [address] [address] Care Team Providers Name Role Phone Gagandeep Hinojosa MD Primary Care Provider Encounter Details Date Type Department Care Team Description 07/07/2015 Notes/Orders [facility] Gagandeep Hinojosa MD 1415 [facility] . 1415 [place] [address] [place] [address] [phone] (Wo rk) Social History Tobacco Use Types Packs/Day Years Used Date Smoking Tobacco: Never Assessed Sex Assigned at Date Recorded Not on file documented as of this encounter Miscellaneous Notes Letter - Gagandeep Hinojosa MD - 07/07/2015 12:00 AM CDT 07/07/2015 Timur Krishnamurthy [address] [place] [id number] : 1970 Dear Timur: Gagandeep Hinojosa MD has reviewed your medical record and noticed you have not scheduled your diabetes visit. We want to make sure your diabetes treatment plan is right for you. Please call and schedule your visit at [phone]. We look forward to hearing from you, Gagandeep Hinojosa MD STRIAL WELDER documented in this encounter Plan of Treatment Not on filedocumented as of this encounter Visit Diagnoses Not on filedocumented in this encounter Care Teams Physical Therapy Asst Relationship Specialty Start Date End Date Gagandeep Hinojosa MD PCP - General 05/17/12 1415 [facility] [place] [address] Vane Zarate Psychiatrist Psychiatry 03/22/12 documented as of this encounter
--- OUTSIDE RECORDS SUMMARY | 2022-02-14 15:02 | XMS_ITS | Encounter Summary ---
:1970 Author Organization [facility] Address [address] [address] Care Team Providers Name Role Phone Gagandeep Hinojosa MD Primary Care Provider Encounter Details Date Type Department Care Team Description 06/10/2015 Notes/Orders [facility] Gagandeep Hinojosa MD 1415 [facility] . 1415 [place] [address] [place] [address] [phone] (Wo rk) Social History Tobacco Use Types Packs/Day Years Used Date Smoking Tobacco: Never Assessed Sex Assigned at Date Recorded Not on file documented as of this encounter Miscellaneous Notes Letter - Gagandeep Hinojosa MD - 06/10/2015 12:00 AM CST 06/10/2015 Timur Krishnamurthy [address] [place] [id number] : 1970 Dear Timur: I am contacting you with a reminder that it is time for your diabetes visit , please call [phone] to schedule your visit due in June. [...] You can schedule your lab appointment at [phone]. Please continue to take your medications as prescribed. We look forward to seeing you again. Gagandeep Hinojosa MD T ROCK NAILER documented in this encounter Plan of Treatment Not on filedocumented as of this encounter Visit Diagnoses Not on filedocumented in this encounter Care Teams Billing Clerk Relationship Specialty Start Date End Date Gagandeep Hinojosa MD PCP - General 05/17/[address] [place], [place] [address] [address] Vane Zarate Psychiatrist Psychiatry 03/22/12 documented as of this encounter
--- OUTSIDE RECORDS SUMMARY | 2022-02-14 15:02 | XMS_ITS | Encounter Summary ---
:1970 Author Organization [employer] Address [address] [place] [address] Care Team Providers Name Role Phone Gagandeep Hinojosa MD Primary Care Provider Reason for Visit Reason Comments Diabetes Encounter Details Date Type Department Care Team Description 03/27/2015 Office Visit Gagandeep Storm Type 2 d iabetes mellitus, uncontrolled (Primary Dx); Romario Rubio MD Encounter for immunization; [address] 1415 [facility] Microalbuminuria; [place] [address] [address] [facility] current use of insulin; [phone] [place] [address] Long-term insulin use in type 2 diabetes ; [phone] Essential hyper tension; (Work) Hyperlipidemia; Tobacco u se disorder; Non morbid obes ity due to excess calories Social History Tobacco Use Types Packs/Day Years Used Date Smoking Tobacco: Never Assessed Sex Assigned at Date Recorded Not on file documented as of this encounter Last Filed Vital Signs Vital Sign Reading Time Taken Comments Blood Pressure 132/86 03/27/2015 2:05 PM RADIO NEWS WRITER Pulse 72 03/27/2015 2:05 PM RADIO NEWS WRITER Temperature - - Respiratory Rate - - Oxygen Saturation - - Inhaled Oxygen Concentration - - Weight 104.3 kg (230 lb) 03/27/2015 2:05 PM RADIO NEWS WRITER Height - - Body Mass Index 33 [...] diabetes mellitus without mention of complication, uncontrolled ([facility])E11.65 250.02 Fluarix Influenza QIV (36+ mos) OPTOMETRY [...] UMAR: 3 months Aspirin: yes Tobacco: yes O NEWS WRITER documented in this encounter Plan of Treatment Not on filedocumented as of this encounter Visit Diagnoses Diagnosis Type 2 diabetes mellitus, uncontrolled - Primary Type II or unspecified type diabetes jasen litus without mention of complication, uncontrolled Encounter for immunization Need for other specified prophylactic va ccination against single bacterial disease Microalbuminuria Proteinuria exterminator current use of insulin (HRC) Encounter [...] (HRC) documented in this encounter Care Teams Tree Wrapper Relationship Specialty Start Date End Date Gagandeep Hinojosa MD PCP - General 05/17/12 1415 [facility] [place] [address] Vane Zarate Psychiatrist Psychiatry 03/22/12 documented as of this encounter
--- OUTSIDE RECORDS SUMMARY | 2022-02-14 15:02 | XMS_ITS | Encounter Summary ---
:1970 Author Organization [facility] Address [address] [place] [address] Care Team Providers Name Role Phone Gagandeep Hinojosa MD Primary Care Provider Encounter Details Date Type Department Care Team Description 08/27/2014 Notes/Orders [facility] Gagandeep Hinojosa MD 1415 [facility] . [address] [place] [address] [place] [address] [phone] (Wo rk) Social History Tobacco Use Types Packs/Day Years Used Date Smoking Tobacco: Never Assessed Sex Assigned at Date Recorded Not on file documented as of this encounter Plan of Treatment Not on filedocumented as of this encounter Visit Diagnoses Not on filedocumented in this encounter Care Teams Claims Associate Relationship Specialty Start Date End Date Gagandeep Hinojosa MD PCP - General 05/17/12 1415 [facility] [place] [address] Vane Zarate Psychiatrsamantha Psychiatry 03/22/12 documented as of this encounter
--- OUTSIDE RECORDS SUMMARY | 2022-02-14 15:02 | XMS_ITS | Encounter Summary ---
:1970 Author Organization [employer] Address [address] [place] [address] Care Team Providers Name Role Phone Gagandeep Michaud MD Primary Care Provider Reason for Visit Reason Comments Refill Encounter Details Date Type Department Care Team Description 03/29/2015 [facility] . 1415 [place] [address] [place] [address] [phone] (Wo rk) Social History Tobacco Use Types Packs/Day Years Used Date Smoking Tobacco: Never Assessed Sex Assigned at Date Recorded Not on file documented as of this encounter Nursing Notes Jackie Frederick CMA - 03/31/2015 8:38 AM CST Requested prescription was last renewed on 12/09/14 and sent to [facility] pharmacy with year supply. Requested Prescriptions Refused Prescriptions Disp Refills ??? lisinopril (PRINIVIL, ZESTRIL) 5 mg tablet [Pharmacy Med Name: LISINOPRIL 5MG TABLETS] 90 tablet3 Sig: TAKE 1 TABLET BY MOUTH EVERY DAY Refused By: JACKIE FREDERICK V Reason for Refusal: REQUEST ALREADY RESPONDED TO BY OTHER MEANS (E.G. PHONE OR FAX) TH ACTUARY Shani Blackman - 03/31/2015 8:38 AM CST [...] - K: 5.0mEq/L on 03/27/2015 Powered by [employer], Reference: [id number], 03/29/2015 10:43:13 AM Minerva GRANGER ([id number]) TH ACTUARY documented in this encounter Plan of Treatment Not on filedocumented as of this encounter Visit Diagnoses Not on filedocumented in this encounter Care Teams Child Protective Investigator Relationship Specialty Start Date End Date Gagandeep Michaud MD PCP - General 05/17/12 [facility] [place] [address] Vane Zarate Psychiatrist Psychiatry 03/22/12 documented as of this encounter
--- OUTSIDE RECORDS SUMMARY | 2022-02-14 15:02 | XMS_ITS | Encounter Summary ---
:1970 Author Organization [facility] Address [address] [address] Care Team Providers Name Role Phone Gagandeep Hinojosa MD Primary Care Provider Encounter Details Date Type Department Care Team Description 11/12/2014 Notes/Orders [place] [facility] Gagandeep Hinojosa MD 1415 [facility] . [address] [place] [address] [place] [address] [phone] (Wo rk) Social History Tobacco Use Types Packs/Day Years Used Date Smoking Tobacco: Never Assessed Sex Assigned at Date Recorded Not on file documented as of this encounter Plan of Treatment Not on filedocumented as of this encounter Visit Diagnoses Not on filedocumented in this encounter Care Teams Gunite Nozzle Operator Relationship Specialty Start Date End Date Gagandeep Hinojosa MD PCP - General 05/17/12 1415 [facility] [place] [address] Vane Zarate Psychiatrsamantha Psychiatry 03/22/12 documented as of this encounter
--- OUTSIDE RECORDS SUMMARY | 2022-02-14 15:02 | XMS_ITS | Encounter Summary ---
:1970 Author Organization [facility] Address [address], [place] [address] Care Team Providers Name Role Phone Gagandeep Hinojosa MD Primary Care Provider Encounter Details Date Type Department Care Team Description 11/06/2014 Notes/Orders [facility] Gagandeep Hinojosa MD 1415 [facility] . 1415 [facility] [address] [place] [address] [phone] (Wo rk) Social History Tobacco Use Types Packs/Day Years Used Date Smoking Tobacco: Never Assessed Sex Assigned at Date Recorded Not on file documented as of this encounter Miscellaneous Notes Letter - Gagandeep Hinojosa MD - 11/06/2014 12:00 AM CDT 11/06/2014 Timur Krishnamurthy [address] [place] [phone] : 1970 Dear Timur: I am contacting you with a reminder that it is time for your diabetes visit , please call [phone] to schedule your visit due in October. [...] You can schedule your lab appointment at [phone]. Please continue to take your medications as prescribed. We look forward to seeing you again. Gagandeep Hinojosa MD (General) NUMBER STAMPER documented in this encounter Plan of Treatment Not on filedocumented as of this encounter Visit Diagnoses Not on filedocumented in this encounter Care Teams Radiation Oncology Manager Relationship Specialty Start Date End Date Gagandeep Hinojosa MD PCP - General 05/17/[address] [place] [address] Vane Zarate Psychiatrist Psychiatry 03/22/12 documented as of this encounter
--- OUTSIDE RECORDS SUMMARY | 2022-02-14 15:02 | XMS_ITS | Encounter Summary ---
:1970 Author Organization [employer] Address [address] [place] [address] Care Team Providers Name Role Phone Gagandeep Hinojosa MD Primary Care Provider Reason for Visit Reason Comments Diabetes Rash Encounter Details Date Type Department Care Team Description 07/18/2015 Office Visit Gagandeep Storm Type 2 d iabetes mellitus, uncontrolled (HR) (Primary Dx); Medicine MD JF Rubio (arteriosclerotic heart disease); [address] [facility] Hyperlip idemia with target LDL less than 70; [address] 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); [phone] Long-term insul in use in type 2 diabetes ([facility]); (Fax) Essential hyper tension; Hyperlipidemia, unspecified [...] patch onto the skin. 03/27/2015: Received from: [facility] ??? 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, uncontrolled Diabetic polyneuropathy associated with type 2 diabetes mellitus (HRC) long-term current use of insulin (HRC) Encounter for long-term (current) use of insulin Long-term insulin use in type 2 diabetes (HRC) Type II or unspecified type diabetes jasen litus without mention of complication, not stated as uncontrolled Essential hypertension (HRC) Unspecified essential hypertension Obesity, unspecified obesity severity, u nspecified obesity type (HRC) documented in this encounter Care Teams Balloon Tester Relationship Specialty Start Date End Date Gagandeep Hinojosa MD PCP - General 05/17/12 1415 [place] [address] Vane Zarate Psychiatrist Psychiatry 03/22/12 documented as of this encounter
--- OUTSIDE RECORDS SUMMARY | 2022-02-14 15:02 | XMS_ITS | Encounter Summary ---
:1970 Author Organization [employer] Address [address] [place] [address] Care Team Providers Name Role Phone Gagandeep Michaud MD Primary Care Provider Reason for Visit Reason Comments Refill Encounter Details Date Type Department Care Team Description 07/04/2014 Refill [facility] Gagandeep Michaud MD Refill 1415 [facility] . 1415 [place] [address] [place] [address] [phone] (Wo rk) Social History Tobacco Use Types [...] - HBA1C: 11.0% on 05/21/2014 Powered by [employer], Reference: [id number], 07/04/2014 2:47:54 PM CDT, Pool: MANUEL REFILL ([id number]) Alaina Garduno RN - 07/04/2014 3:31 PM [...] on filedocumented in this encounter Care Teams Patent Legal Assistant Relationship Specialty Start Date End Date Gagandeep Michaud MD PCP - General 05/17/[address] [place] [address] [place] [address] Vane Zarate Psychiatrist Psychiatry 03/22/12 documented as of this encounter
--- OUTSIDE RECORDS SUMMARY | 2022-02-14 15:02 | XMS_ITS | Encounter Summary ---
:1970 Author Organization [employer] Address [address] [place] [address] Care Team Providers Name Role Phone Gagandeep Hinojosa MD Primary Care Provider Encounter Details Date Type Department Care Team Description 03/27/2015 Lab Visit [facility] Type 2 diabetes mellitus, un controlled; [address] Hyperlipidemia; [place] [address] Essential hypertension [phone] Social History Tobacco Use Types Packs/Day Years Used Date Smoking Tobacco: Never Assessed Sex Assigned at Date Recorded Not on file documented as of this encounter Plan of Treatment Not on filedocumented as of this encounter Procedures Procedure Name Priority Date/Time Associated Diagnosis Comme nts ALBUMIN/CREAT RATIO Routine 03/27/2015 3:41 Type 2 diabetes Re sults for this PM [employer] mellitus, uncontrolled proce dure are in (HRC) the results section. LIPID PANEL AND Routine 03/27/2015 1:53 Essential hypertension Results for this DIRECT LDL(IF PM [employer] procedure are in NEEDED) the results section. CREATININE / GFR Routine 03/27/2015 1:53 Essential hypertensio n Results for this PM [employer] procedure are i n the results section. ELECTROLYTE PANEL Routine 03/27/2015 1:53 Hyperlipidemia Resul ts for this PM [employer] procedure are i n the results section. documented in this encounter Results (ABNORMAL) Microalb/Creat Ratio (03/27/2015 3:41 PM [employer]TER [employer]CH[employer]) [facility] Method Time Signature Microalbumin 26.1 mg/L HP CONVERSION Urine U Creat Random 63 58 - 161 HP CONVERSION mg/dL Microalbumin/Cre 41.4 (H) 0.0 - HP CONVERSION atinine Ratio 30.0 Specimen Anatomical Collection Method Collection Time Receive d Time (Source) Location / / Volume Laterality 03/27/2015 3:41 PM 5 5:47 [employer] PM [employer] Narrative HP CONVERSION - 03/27/2015 6:43 PM DRAFTER ELECTROMECHANICAL Performed at [facility], [facility] [address] [place] [address] CLIA number [id number] Gagandeep Hinojosa MD LAB_1 Performing Organization Address [facility] Phon e Number HP CONVERSION (ABNORMAL) Lipid Panel and Direct LDL(If Needed) (03/27/2015 1:53 PM [employer]CH[employer]) [facility] Method Time Signature Cholesterol 148 0 [...] Volume Laterality 03/27/2015 1:53 PM 5 5:47 DRAFTER ELECTROMECHANICAL PM [employer]CH[employer] Narrative HP CONVERSION - 03/27/2015 6:44 PM DRAFTER ELECTROMECHANICAL Performed at [facility], [facility] [address] [place] [address] CLIA number [id number] Gagandeep Hinojosa MD LAB_1 Performing Organization Address [facility] Phon e Number HP CONVERSION (ABNORMAL) Creatinine / GFR (03/27/2015 1:53 PM DRAFTER ELECTROMECHANICAL) [facility] Method Time Signature Creatinine 0.60 (L) [...] Volume Laterality 03/27/2015 1:53 PM 5 5:47 DRAFTER ELECTROMECH[employer]ICAL PM [employer]CH[employer] Narrative HP CONVERSION - 03/27/2015 6:44 PM DRAFTER ELECTROMECHANICAL Performed at [facility], [address] [place] [address] CLIA number [id number] Gagandeep Hinojosa MD LAB_1 Performing Organization Address [facility] Phon e Number HP CONVERSION (ABNORMAL) Electrolyte Panel (03/27/2015 1:53 PM DRAFTER ELECTROMECHANICAL) ath[facility] Signature Sodium 133 (L) 136 - 145 HP CONVERSION mmol/L Potassium 5.0 3.5 - 5.2 HP CONVERSION mmol/L Chloride 98 98 - 107 HP CONVERSION mmol/L Bicarbonate 24 22 - 29 HP CONVERSION mmol/L Specimen Anatomical Collection Method Collection Time Receive d Time (Source) Location / / Volume Laterality 03/27/2015 1:53 PM 5 5:47 D[employer]TER [employer]CH[employer] PM [employer]TER ELECTROMECHAN[employer] Narrative HP CONVERSION - 03/27/2015 6:44 PM DRAFTER ELECTROMECHANICAL Performed at [facility], [address] [place] [address] CLIA number [id number] Gagandeep Hinojosa MD LAB_1 Performing Organization Address [facility] Phon e Number HP CONVERSION documented in this encounter Visit Diagnoses Diagnosis Type 2 diabetes mellitus, uncontrolled Type II or unspecified type diabetes jasen litus without mention of complication, uncontrolled Hyperlipidemia (HRC) Other and unspecified hyperlipidemia Essential hypertension (HRC) Unspecified essential hypertension documented in this encounter Care Teams Child Life Assistant Relationship Specialty Start Date End Date Gagandeep iHnojosa MD PCP - General 05/17/12 [facility] [place] [id number] Vane Zarate Psychiatrsamantha Psychiatry 03/22/12 documented as of this encounter
--- OUTSIDE RECORDS SUMMARY | 2022-02-14 15:02 | XMS_ITS | Encounter Summary ---
:1970 Author Organization [facility] Address [address], [place] [address] Care Team Providers Name Role Phone Gagandeep Hinojosa MD Primary Care Provider Encounter Details Date Type Department Care Team Description 08/07/2014 Notes/Orders [facility] Gagandeep Hinojosa MD 1415 [facility] . 1415 [place] [id number] [place] [address] [phone] (Wo rk) Social History Tobacco Use Types Packs/Day Years Used Date Smoking Tobacco: Never Assessed Sex Assigned at Date Recorded Not on file documented as of this encounter Miscellaneous Notes Letter - Gagandeep Hinojosa MD - 08/07/2014 12:00 AM CDT 08/07/2014 Timur Krishnamurthy [address] [place] [address] : 1970 Dear Timur: I am contacting you with a reminder that it is time for your diabetes visit , please call [phone] to schedule your visit due in July. [...] You can schedule your lab appointment at [phone]. Please continue to take your medications as prescribed. We look forward to seeing you again. Gagandeep Hinojosa MD ER CLERK documented in this encounter Plan of Treatment Not on filedocumented as of this encounter Visit Diagnoses Not on filedocumented in this encounter Care Teams Nail Feeder Relationship Specialty Start Date End Date Gagandeep Hinojosa MD PCP - General 05/17/[address] [place], [place] [address] [place] [address] Vane Zarate Psychiatrist Psychiatry 03/22/12 documented as of this encounter
--- OUTSIDE RECORDS SUMMARY | 2022-02-14 15:02 | XMS_ITS | Encounter Summary ---
:1970 Author Organization [facility] Address [address] [place] [address] Care Team Providers Name Role Phone Gagandeep Hinojosa MD Primary Care Provider Reason for Visit Reason Comments Refill Encounter Details Date Type Department Care Team Description 01/22/2015 Refill [facility] Vanessa Ram PA-C Refill [address] [place] [address] [place], [place] [address] (Wo rk) Social History Tobacco Use Types [...] on filedocumented in this encounter Care Teams Records Manager Relationship Specialty Start Date End Date Gagandeep Hinjoosa MD PCP - General 05/17/12 1415 [facility] [place] [address] Vane Zarate Psychiatrist Psychiatry 03/22/12 documented as of this encounter
--- OUTSIDE RECORDS SUMMARY | 2022-02-14 15:02 | XMS_ITS | Encounter Summary ---
:1970 Author Organization [facility] Address [address], [place] [address] Care Team Providers Name Role Phone Gagandeep Hinojosa MD Primary Care Provider Encounter Details Date Type Department Care Team Description 02/18/2015 Notes/Orders [facility] Gagandeep Hinojosa MD 1415 [facility] . [address] [place] [address] [place] [address] [phone] (Wo rk) Social History Tobacco Use Types Packs/Day Years Used Date Smoking Tobacco: Never Assessed Sex Assigned at Date Recorded Not on file documented as of this encounter Plan of Treatment Not on filedocumented as of this encounter Visit Diagnoses Not on filedocumented in this encounter Care Teams Tin Roofer Relationship Specialty Start Date End Date Gagandeep Hinojosa MD PCP - General 05/17/12 1415 [facility] [place] [address] Vane Zarate Psychiatrsamantha Psychiatry 03/22/12 documented as of this encounter
--- OUTSIDE RECORDS SUMMARY | 2022-02-14 15:02 | XMS_ITS | Encounter Summary ---
:1970 Author Organization [employer] Address [address] [place] [address] Care Team Providers Name Role Phone Gagandeep Hinojosa MD Primary Care Provider Reason for Visit Reason Comments Diabetes Encounter Details Date Type Department Care Team Description 12/09/2014 Office Visit Gagandeep Storm Type II or unspecified type diabetes mellitus without mention of complication, uncontrolled (Primary Dx); Romario Rubio MD ASHD (arteriosclerotic heart disease); [address] 1415 [facility] aviation mechanic current use of ins ulin; [place] [address] [address] Unspecified essential hypertension; [phone] [place] [address] Other and unspecified hyperlipidemia; [phone] Tobacco use dis order (Work) Social History [...] Coronary atherosclerosis of unspecified type of vessel, [employer] [place] or graft aviation mechanic current use of insulin (HRC) Encounter for long-term (current) use of insulin Unspecified essential hypertension (HRC) Unspecified essential hypertension Other and unspecified hyperlipidemia (HR C) Other and unspecified hyperlipidemia Tobacco use disorder (HRC) Tobacco use disorder documented in this encounter Care Teams Block Mason Relationship Specialty Start Date End Date Gagandeep Hinojosa MD PCP - General 05/17/12 [facility] [place] [address] Vane Zarate Psychiatrist Psychiatry 03/22/12 documented as of this encounter
--- OUTSIDE RECORDS SUMMARY | 2022-02-14 15:02 | XMS_ITS | Encounter Summary ---
:1970 Author Organization [employer] Address [address] [address] Care Team Providers Name Role Phone Gagandeep Hinojosa MD Primary Care Provider Reason for Visit Reason Comments NUMBNESS Neck Pain Encounter Details Date Type Department Care Team Description 07/09/2015 Nurse Triage [facility] Gagandeep Hinojosa, SHASHANK ESS; Neck Pain Medicine 1415 [facility] . 1415 [facility] [address] [place] [address] [phone] (Wo rk) Social History Tobacco Use Types Packs/Day Years Used Date Smoking Tobacco: Never Assessed Sex Assigned at Date Recorded Not on file documented as of this encounter Nursing Notes Cordelia Leyva RN - 07/09/2015 9:44 AM CDT Protocol: NECK PAIN OR [id number] Affirmative: Neck pain or stiffness Disposition of [...] filedocumented in this encounter Care Teams Sales And Leasing Consultant Relationship Specialty Start Date End Date Gagandeep Hinojosa MD PCP - General 05/17/[address] [place], [place] [address] [address] Vane Zarate Psychiatrist Psychiatry 03/22/12 documented as of this encounter
--- OUTSIDE RECORDS SUMMARY | 2022-02-14 15:02 | XMS_ITS | Encounter Summary ---
:1970 Author Organization [facility] Address [address] [place] [address] Care Team Providers Name Role Phone Gagandeep Hinojosa MD Primary Care Provider Encounter Details Date Type Department Care Team Description 05/27/2014 Notes/Orders [facility] Gagandeep Hinojosa MD 1415 [facility] . 1415 [place] [address] [place] [address] [phone] (Wo rk) Social History Tobacco Use Types Packs/Day Years Used Date Smoking Tobacco: Never Assessed Sex Assigned at Date Recorded Not on file documented as of this encounter Plan of Treatment Not on filedocumented as of this encounter Visit Diagnoses Not on filedocumented in this encounter Care Teams Rn Telephone Triage Relationship Specialty Start Date End Date Gagandeep Hinojosa MD PCP - General 05/17/12 1415 [facility] [place] [address] Vane Zarate Psychiatrsamantha Psychiatry 03/22/12 documented as of this encounter
--- OUTSIDE RECORDS SUMMARY | 2022-02-14 15:02 | XMS_ITS | Encounter Summary ---
:1970 Author Organization [employer] Address [address] [place] [address] Care Team Providers Name Role Phone Gagandeep Hinojosa MD Primary Care Provider Encounter Details Date Type Department Care Team Description 08/22/2014 Lab Visit [facility] Type II or unspecified type 1415 [facility] . diabetes mellitus without [place] [address] mention of complication, uncontrolled Social History Tobacco [...] (ABNORMAL) Microalb/Creat Ratio (08/22/2014 2:05 PM CDT) [facility] Method Time Signature Microalbumin 42.5 mg/L HP CONVERSION Urine U Creat Random 140 mg/dL HP CONVERSION Microalbumin/Cre 30.4 (H) 0.0 - HP CONVERSION atinine Ratio 30.0 Specimen Anatomical Collection Method Collection Time Receive d Time (Source) Location / / Volume Laterality 08/22/2014 2:05 PM 5 7:38 CDT PM CDT Narrative HP CONVERSION - 08/22/2014 8:39 PM CDT Performed at [facility], [address] [place] [address] Gagandeep Hinojosa MD LAB_1 Performing Organization Address [facility] Phon e Number HP CONVERSION (ABNORMAL) HEMOGLOBIN A1C, RAPID (08/22/2014 1:13 PM CDT) Analysis Performed At [facility] Time Signature Hemoglobin A1C 8.9 (H) [...] - 08/22/2014 1:24 PM CDT Performed at [facility], [address] [place] [address] Gagandeep Hinojosa MD LAB_1 Performing Organization Address [facility] Phon e Number HP CONVERSION documented in this encounter Visit Diagnoses Diagnosis Type II or unspecified type diabetes jaesn litus without mention of complication, uncontrolled documented in this encounter Care Teams Cigarette Carton Sealer Relationship Specialty Start Date End Date Gagandeep Hinojosa MD PCP - General 05/17/[address] [place] [address] Vane Zarate Psychiatrsamantha Psychiatry 03/22/12 documented as of this encounter
--- OUTSIDE RECORDS SUMMARY | 2022-02-14 15:02 | XMS_ITS | Encounter Summary ---
:1970 Author Organization [facility] Address [address] [place] [address] Care Team Providers Name Role Phone Gagandeep Hinojosa MD Primary Care Provider Encounter Details Date Type Department Care Team Description 12/17/2014 Notes/Orders [facility] Gagandeep Hinojosa MD 1415 [facility] . [address] [place] [address] [place] [address] [phone] (Wo rk) Social History Tobacco Use Types Packs/Day Years Used Date Smoking Tobacco: Never Assessed Sex Assigned at Date Recorded Not on file documented as of this encounter Plan of Treatment Not on filedocumented as of this encounter Visit Diagnoses Not on filedocumented in this encounter Care Teams Special Educator Relationship Specialty Start Date End Date Gagandeep Hinojosa MD PCP - General 05/17/12 1415 [facility] [place] [address] Vane Zarate Psychiatrsamantha Psychiatry 03/22/12 documented as of this encounter
--- OUTSIDE RECORDS SUMMARY | 2022-02-14 15:02 | XMS_ITS | Encounter Summary ---
:1970 Author [facility] Address [address] [place] [address] Care Team Providers Name Role Phone Gagandeep Hinojosa MD Primary Care Provider Encounter Details Date Type Department Care Team Description 12/09/2014 Lab Visit [facility] Type II or unspecified type 1415 [facility] . diabetes mellitus without [place] [address] mention of complication, uncontrolled Social History Tobacco [...] - 12/09/2014 1:49 PM CDT Performed at [facility], 1415 [facility], [place] [address] Gagandeep Hinojosa MD LAB_1 Performing Organization Address [facility] [place] Phon e Number HP CONVERSION (ABNORMAL) HEMOGLOBIN A1C, RAPID (12/09/2014 1:57 PM CDT) Analysis Performed At [facility] Time Signature Hemoglobin A1C 9.3 (H) [...] - 12/09/2014 2:11 PM CDT Performed at [facility], [address] [place] [address] Gagandeep Hinojosa MD LAB_1 Performing Organization Address [facility] Phon e Number HP CONVERSION documented in this encounter Visit Diagnoses Diagnosis Type II or unspecified type diabetes jasen litus without mention of complication, uncontrolled documented in this encounter Care Teams Automobile Mechanic Assistant Relationship Specialty Start Date End Date Gagandeep Hinojosa MD PCP - General 05/17/[address] [place] [address] Vane Zarate Psychiatrist Psychiatry 03/22/12 documented as of this encounter
--- OUTSIDE RECORDS SUMMARY | 2022-02-14 15:02 | XMS_ITS | Encounter Summary ---
:1970 Author Organization [employer] Address [address] [place] [address] Care Team Providers Name Role Phone Gagandeep Hinojosa MD Primary Care Provider Reason for Visit Reason Comments Diabetes Encounter Details Date Type Department Care Team Description 08/22/2014 Office Visit Gagandeep Storm Type II or unspecified type diabetes mellitus without mention of complication, uncontrolled (Primary Dx); Romario Rubio MD Tobacco use disorder; [address] 1415 [facility] Obesity, unspecified; [place] [address] Av ASHD (arteriosclerotic heart disease) [phone] [place], [place] [address] Social History Tobacco Use [...] Coronary atherosclerosis of unspecified type of vessel, blackfeet or graft documented in this encounter Care Teams Mold Chipper Relationship Specialty Start Date End Date Gagandeep Hinojosa MD PCP - General 05/17/[address] [place] [address] Vane Zarate Psychiatrsamantha Psychiatry 03/22/12 documented as of this encounter
--- OUTSIDE RECORDS SUMMARY | 2022-02-14 15:03 | XMS_ITS | Encounter Summary ---
:1970 Author Organization [facility] Address [address], [place] [address] Care Team Providers Name Role Phone Gagandeep Hinojosa MD Primary Care Provider Reason for Visit Reason Comments Missed Appointment Encounter Details Date Type Department Care Team Description 01/03/2014 Telephone [employer] [facility] Vanessa Ram PA-C Missed Appointment 1515 [facility] . [address] [place] [address] [place], [place] [phone] (Wo rk) Social History Tobacco Use Types [...] on filedocumented in this encounter Care Teams Lock Tender Relationship Specialty Start Date End Date Gagandeep Hinojosa MD PCP - General 05/17/12 1415 [place], [place] [id number] Vane Zarate Psychiatrist Psychiatry 03/22/12 documented as of this encounter
--- OUTSIDE RECORDS SUMMARY | 2022-02-14 15:03 | XMS_ITS | Encounter Summary ---
:1970 Author Organization [employer] Address [address] [place] [address] Care Team Providers Name Role Phone Gagandeep Hinojosa MD Primary Care Provider Reason for Visit Reason Comments Follow-up Encounter Details Date Type Department Care Team Description 02/14/2014 Office Visit [facility] Zoie West, Coronary atherosclerosis of unspecified type of vessel, [place] or graft (Primary Dx); [address], old; [address] Hyperlipidemia LDL goal < 70 ; [place] [address] Blvd Type II or unspecified type diabetes jasen litus without mention of complication, uncontrolled; [phone] [place], [place] Tobacco us e disorder [id number] Social History Tobacco Use Types Packs/Day Years [...] Ram PA-C. Call sooner if any concerns [phone] Keri FINCH documented in this encounter Progress Notes Zoie West PA-C - 02/14/2014 1:33 PM CDT NAME: SHARLENE VARNER MR#: [id number] CSN: [id number] AUTHENTICATING CLINICIAN: Vanessa Ram PA-C CONFIRM #: [id number] LOC: 3205 CLINIC PROGRESS NOTE DATE OF VISIT: 01/09/2014 : 1970 CHIEF COMPLAINT: Coronary artery disease. Mr. Varner is a pleasant, 44-year-old gentleman who presents to the [facility]. He was seen last by Vanessa Ram [...] On his angiogram in 2012, he had tjdu-mv-agnkaocf diffuse disease, specifically inthe distal RCA and [...] 5' 10 (177.8 cm) Wt 231 lb (021203 g) BMI 33.15 kg/m2 Pulsewith my recheck [...] of 60%. Normal left ventricular size with trqa-ko-dkdidrra concentric left ventricular hypertrophy. No regional wall [...] a bare-metal stent in April 2011. b. Ukkh-my-ywcoaxpp diffuse nonobstructive distal disease on coronary angiogram on October 27, 2012. Thepreviously deployed stent in the posterior descending branch of the right coronary artery was patent, with jjxh-ex-rjbvkujq in-stent restenosis. This did not appear to [...] Coronary atherosclerosis of unspecified type of vessel, oneida or graft (HRC) - Primary Coronary atherosclerosis of unspecified type of vessel, [place] or graft [place], old (HRC) Old myocardial infarction Hyperlipidemia LDL goal < 70 (HRC) Other and unspecified hyperlipidemia Type II or unspecified type diabetes jasen litus without mention of complication, uncontrolled Tobacco use disorder (HRC) Tobacco use disorder documented in this encounter Care Teams Sex Therapist Relationship Specialty Start Date End Date Gagandeep Hinojosa MD PCP - General 05/17/12 1415 [facility] [place] [address] Vane Zarate Psychiatrsamantha Psychiatry 03/22/12 documented as of this encounter
--- OUTSIDE RECORDS SUMMARY | 2022-02-14 15:03 | XMS_ITS | Encounter Summary ---
:1970 Author Organization [facility] Address [address] [place] [address] Care Team Providers Name Role Phone Gagandeep Hinojosa MD Primary Care Provider Reason for Visit Reason Comments Diabetes Encounter Details Date Type Department Care Team Description 11/16/2013 Notes/Orders [facility] Gagandeep Hinojosa MD [address] [facility] [address] [facility] . [address] [place] [address] [place] [address] [phone] (Wo rk) Social History Tobacco Use Types Packs/Day Years Used Date Smoking Tobacco: Never Assessed Sex Assigned at Date Recorded Not on file documented as of this encounter Plan of Treatment Not on filedocumented as of this encounter Visit Diagnoses Not on filedocumented in this encounter Care Teams Press Operator Carbon Blocks Relationship Specialty Start Date End Date Gagandeep Hinojosa MD PCP - General 05/17/12 [facility] [address] Vane Zarate Psychiatrist Psychiatry 03/22/12 documented as of this encounter
--- OUTSIDE RECORDS SUMMARY | 2022-02-14 15:03 | XMS_ITS | Encounter Summary ---
:1970 Author Organization [employer] Address [address] [place] [address] Care Team Providers Name Role Phone Gagandeep Hinojosa MD Primary Care Provider Encounter Details Date Type Department Care Team Description 07/13/2013 Lab Visit [facility] Type II or unspecified type diabetes mellitus without mention of complication, uncontrolled; [address] Coronary atherosclerosis of unspecified type of vessel, [place] or graft [place] [address] Social History Tobacco Use Types Packs/Day Years [...] Coronary atherosclerosis of unspecified type of vessel, [place]qu[place] or graft (HR) LDL CHOLESTEROL, Routine 07/13/2013 [...] Coronary atherosclerosis of unspecified type of vessel, [place] or graft (HRC) documented in this encounter [...] Hinojosa MD LAB_1 Performing Organization Address [facility] Phon e Number HP CONVERSION LDL Cholesterol, Direct Measured (07/13/2013 10:39 AM CDT) athologist Signature LDL Direct 123 0 - 130 HP CONVERSION mg/dL Specimen Anatomical Collection Method Collection Time Receive d Time (Source) Location / / Volume Laterality 07/13/2013 10:39 07/13/2013 2:48 AM CDT PM CDT Narrative HP CONVERSION - 07/13/2013 6:53 PM CDT Performed at [facility], [address] [place] [address] Gagandeep Hinojosa MD LAB_1 Performing Organization Address City/[facility] Code Phon e Number HP CONVERSION (ABNORMAL) Hgb A1c (07/13/2013 10:39 AM CDT) athologist Signature HGB A1C 10.4 (H) 4.0 - 5.6 % HP CONVERSION Specimen Anatomical Collection Method Collection Time Receive d Time (Source) Location / / Volume Laterality 07/13/2013 10:39 07/13/2013 4:10 AM CDT PM CDT Gagandeep Hionjosa MD LAB_1 Performing Organization Address City/[facility] Phon e Number HP CONVERSION (ABNORMAL) Lipid Panel and Direct LDL(If Needed) (07/13/2013 10:39 AM CDT) [facility] [employer] Method Time Signature Cholesterol 197 0 - [...] - 07/13/2013 5:00 PM CDT Performed at [facility], [address] [place] [address] Gagandeep Hinojosa MD LAB_1 Performing Organization Address City/[facility] Phon e Number HP CONVERSION AST (07/13/2013 10:39 AM CDT) [facility] [employer] Method Time Signature Aspartate 25 0 - 45 HP CONVERSION Aminotransferase U/L Specimen Anatomical Collection Method Collection Time Receive d Time (Source) Location / / Volume Laterality 07/13/2013 10:39 07/13/2013 2:48 AM CDT PM CDT Narrative HP CONVERSION - 07/13/2013 5:00 PM CDT Performed at [facility], [address] [place] [address] Gagandeep Hinojosa MD LAB_1 Performing Organization Address City/[facility] Phon e Number HP CONVERSION documented in this encounter Visit Diagnoses Diagnosis Type II or unspecified type diabetes jasen litus without mention of complication, uncontrolled Coronary atherosclerosis of unspecified type of vessel, nisqually or graft (HRC) Coronary atherosclerosis of unspecified type of vessel, nisqually or graft documented in this encounter Care Teams Beauty Culturist Apprentice Relationship Specialty Start Date End Date Gagandeep Hinojosa MD PCP - General 05/17/12 [facility] [place] [address] Vane Zarate Psychiatrist Psychiatry 03/22/12 documented as of this encounter
--- OUTSIDE RECORDS SUMMARY | 2022-02-14 15:03 | XMS_ITS | Encounter Summary ---
:1970 Author Organization [employer] Address [address] [place] [address] Care Team Providers Name Role Phone Gagandeep Hinojosa MD Primary Care Provider Reason for Visit Reason Comments Appt. Needed Encounter Details Date Type Department Care Team Description 07/12/2013 Telephone [facility] Gagandeep Hinojosa MD Appt. Needed 1415 [facility] . [address] [place] [address] [place] [address] [phone] (Wo rk) Social History Tobacco Use Types Packs/Day Years Used Date Smoking Tobacco: Never Assessed Sex Assigned at Date Recorded Not on file documented as of this encounter Nursing Notes Cordelia Jerome - 07/12/2013 4:29 PM CDT 1st call LM to call [phone] to schedule overdue A1c/FL and diabetes check with Dr Hinojosa (due May). OIE documented in this encounter Plan of Treatment Not on filedocumented as of this encounter Visit Diagnoses Not on filedocumented in this encounter Care Teams Seed Packer Relationship Specialty Start Date End Date Gagandeep Hinojosa MD PCP - General 05/17/12 1415 [facility] [place], [place] [address] Vane Zarate Psychiatrist Psychiatry 03/22/12 documented as of this encounter
--- OUTSIDE RECORDS SUMMARY | 2022-02-14 15:03 | XMS_ITS | Encounter Summary ---
:1970 Author Organization [facility] Address [address] [place] [address] Care Team Providers Name Role Phone Gagandeep Hinojosa MD Primary Care Provider Reason for Referral Specialty Diagnoses / Procedures Referred By Contact Refer red To Contact Gagandeep Hinojosa MD [address] [facility] [address] [place] [address] Referral ID Status Reason Start Date Expiration Date Visits Requ ested Visits Authorized Reason for Visit Reason Comments Diabetes Encounter Details Date Type Department Care Team Description 01/16/2014 Office Visit Gagandeep Storm (Primary Dx); Romario Rubio MD Type II or unspecified type diabetes jasen litus without mention of complication, uncontrolled; [address] 14[address] [facility] Need for influenza vaccinati on; [place] [address] [address] Proteinuria; [phone] [place] [address] assisted current use of insulin; [phone] Long-term insul in use in type 2 [...] Associated Orders ICD-9-CM 1. Financial difficulties V60.2 [facility] Care Coordination Consult (AMB) 2. Type II or unspecified type diabetes mellitus without mention of complication, uncontrolled (HCC)250.02 lisinopril (PRINIVIL, ZESTRIL) 5 mg tablet metFORMIN (GLUCOPHAGE) 500 mg tablet insulin NPH (NOVOLIN N) 100 unit/mL Susp insulin regular (NOVOLIN R) 100 unit/mL injection Chronic 3. Need for influenza vaccination V04.81 Fluarix Influenza QIV (36+ mos) PLAN: 1. 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 Add metformin Diabetes measures: A1c Due: 3 [...] vaccination and in oculation against influenza Proteinuria assisted current use of insulin (HRC) Encounter [...] unspecified documented in this encounter Care Teams Blade Sharpener Relationship Specialty Start Date End Date Gagandeep Hinojosa MD PCP - General 05/17/12 1415 [place] [address] Vane Zarate Psychiatrist Psychiatry 03/22/12 documented as of this encounter
--- OUTSIDE RECORDS SUMMARY | 2022-02-14 15:03 | XMS_ITS | Encounter Summary ---
:1970 Author Organization [facility] Address [address] [place] [address] Care Team Providers Name Role Phone Gagandeep Michaud MD Primary Care Provider Reason for Visit Reason Comments Refill Encounter Details Date Type Department Care Team Description 08/03/2013 Refill [facility] Gagandeep Michaud MD [facility] . 14[address] [facility] [place] [address] [place] [address] [phone] (Wo rk) Social History Tobacco Use Types [...] on filedocumented in this encounter Care Teams Pole Truck Driver Relationship Specialty Start Date End Date Gagandeep Michaud MD PCP - General 05/17/12 1415 [facility] [place] [id number] Vane Zarate Psychiatrist Psychiatry 03/22/12 documented as of this encounter
--- OUTSIDE RECORDS SUMMARY | 2022-02-14 15:03 | XMS_ITS | Encounter Summary ---
:1970 Author Organization [employer] Address [address] [place] [address] Care Team Providers Name Role Phone Gagandeep Hinojosa MD Primary Care Provider Reason for Visit Reason Comments [facility] Phone Visit Encounter Details Date Type Department Care Team Description 01/31/2014 Care Coord Phone Judy Luke R N [facility] Phone Visit Medicine 1415 [facility] 1415 [facility] [place] [address] [place] [address] [phone] Social History Tobacco Use Types Packs/Day Years Used Date Smoking Tobacco: Never Assessed Sex Assigned at Date Recorded Not on file documented as of this encounter Progress Notes Judy Pittman RN - 02/13/2014 4:04 PM CDT Left message requesting a return call. Please transfer to [phone]. Judy Pittman RN - 02/13/2014 4:04 PM CDT It Administrative Assistant - Phone Call Contact with: Rustam Reason for call: Financial Assistance Discussion/actions: Rustam is returning my call. Rustam has Medicare plus Silver Scripts insurance andhas a hx of hitting the Coverage Gap in February. [employer] has assisted Rustam with his insulin costs the past 2 years. Rustam was advised to set a budget that would help him cover the costs of his medications if he reached the Coverage Gap again this year. Rustam did set a budget and even set aside $2,500 in a FSA through his 's employer. Unfortunately, Rustam had additional medication expenses this year that unexpectedly caused him to reach the Coverage Gap much ealier in October. Rustam has been paying $400 per month since October and has exhausted the funds in his FSA. Rustam had been using [facility] and discovered he could obtain generic insulin through [facility] at half the cost. Rustam receives SSDI and sometimes can get extra work through a temporary agency, but there isn't any work available at this time.Rustam has exhausted all his resources to get enough insulin to last through the end of January, but will need help for the last 2 months of this year. Rustam had been rationing his insulin because he could not afford to buy more, but has since returnedto his prescribed dose. Shared plan: Left message for Dianne at the [employer] requesting medication assistance. [employer] may be another resource, if [facility] is unable to help. Judy Pittman RN - 02/13/2014 4:04 PM CDT It Administrative Assistant - Phone Call Contact with: [facility] Reason for call: Medication assistance Discussion/actions: Dianne is returning my call. [facility] is willing and able to assist Rustam with onemonth of insulin, unfortunately they do not have enough funding to cover the cost of 2 months. [facility] does not typically work with [facility], but a plan has been arranged to provide payment today. I called Rustam and provided the above information. Rustam is grateful for the assistance from [facility] andthinks he will be able to find other resources to cover the cost of his insulin needs for the month of March. Rustam assures me he will NOT ration his insulin, rather he will call me with as much notice as possible to research other resources, if needed. Shared plan: Rustam will pick up man his insulin at [facility] tomorrow. Rustam will notify me if he will not be able to cover the cost of his insulin for March. Rustam has my contact information and was advised to call with further needs as necessary. Phone follow up as needed. Rustam verbalized understanding and agreed with plan of care and follow up. documented in this encounter Plan of Treatment Not on filedocumented as of this encounter Visit Diagnoses Diagnosis Health long-term, active care coordinati on - Primary Inadequate community resources documented in this encounter Care Teams Mobile Battery Technician Relationship Specialty Start Date End Date Gagandeep Hinojosa MD PCP - General 05/17/12 1415 [facility] [place] [address] Vane Zarate Psychiatrist Psychiatry 03/22/12 documented as of this encounter
--- OUTSIDE RECORDS SUMMARY | 2022-02-14 15:03 | XMS_ITS | Encounter Summary ---
:1970 Author Organization [employer] Address [address] [address] Care Team Providers Name Role Phone Gagandeep Hinojosa MD Primary Care Provider Encounter Details Date Type Department Care Team Description 11/27/2013 Hospital Encounter Heart & Vascular Other nonspecific Center Echocardiogra m abnormal cardiovascular [address] system function study [place], [place] (Primar y Dx) [address] Social History Tobacco Use Types Packs/Day Years [...] Primary documented in this encounter Care Teams Top Case Assembler Relationship Specialty Start Date End Date Gagandeep Hinojosa MD PCP - General 05/17/[address] [place], [place] [address] [address] Vane Zarate Psychiatrist Psychiatry 03/22/12 documented as of this encounter
--- OUTSIDE RECORDS SUMMARY | 2022-02-14 15:03 | XMS_ITS | Encounter Summary ---
:1970 Author Organization [employer] Address [address] [place] [address] Care Team Providers Name Role Phone Gagandeep Hinojosa MD Primary Care Provider Reason for Visit Reason Comments Other Encounter Details Date Type Department Care Team Description 11/22/2013 Telephone [facility] Gagandeep Hinojosa MD Other 1415 [facility] . 1415 [place] [address] [place] [address] [phone] (Wo rk) Social History Tobacco Use Types Packs/Day Years Used Date Smoking Tobacco: Never Assessed Sex Assigned at Date Recorded Not on file documented as of this encounter Nursing Notes Jackeline Al - 11/22/2013 11:47 AM CDT Timur is scheduled at [facility] on November 27 at 3:00. Maximilian Ag [...] on filedocumented in this encounter Care Teams Land Lease Information Clerk Relationship Specialty Start Date End Date Gagandeep Hinojosa MD PCP - General 05/17/12 [facility] [place] [address] Vane Zarate Psychiatrist Psychiatry 03/22/12 documented as of this encounter
--- OUTSIDE RECORDS SUMMARY | 2022-02-14 15:03 | XMS_ITS | Encounter Summary ---
:1970 Author Organization [facility] Address [address] [place] [address] Care Team Providers Name Role Phone Gagandeep Hinojosa MD Primary Care Provider Reason for Visit Reason Comments LAB RESULTS Encounter Details Date Type Department Care Team Description 02/28/2013 Telephone [place] Gagandeep Hinojosa MD LAB RESULTS 1415 [facility] . 1415 [facility] [place] [address] [place] [address] [phone] (Wo rk) Social History Tobacco Use Types Packs/Day Years Used Date Smoking Tobacco: Never Assessed Sex Assigned at Date Recorded Not on file documented as of this encounter Nursing Notes Jud Curry RN - 02/28/2013 12:00 PM CST Reviewed lab letter with pt, appt made for discussion as per letter K CLEANER Yesenia Jara - 02/28/2013 11:54 AM CST Lab/Radiology Results Primary Care Provider: Gagandeep Hinojosa What test result is needed? Labs When and where was test done? [place] on 02/14 Who ordered the test? Gagandeep Hinojosa Transferred to triage per patient request. Can be reached at [phone]. documented in this encounter Plan of Treatment Not on filedocumented as of this encounter Visit Diagnoses Not on filedocumented in this encounter Care Teams Manager Printing Relationship Specialty Start Date End Date Gagandeep Hinojosa MD PCP - General 05/17/[address] [facility] [place] [address] Vane Zarate Psychiatrist Psychiatry 03/22/12 documented as of this encounter
--- OUTSIDE RECORDS SUMMARY | 2022-02-14 15:03 | XMS_ITS | Encounter Summary ---
:1970 Author Organization [employer] Address [address] [place] [address] Care Team Providers Name Role Phone Gagandeep Hinojosa MD Primary Care Provider Reason for Visit Reason Comments Medication Questions Encounter Details Date Type Department Care Team Description 03/16/2013 Telephone [facility] Gagandeep Hinojosa, Medic ation Questions Medicine 1415 [facility] . [address] [facility] [place] [address] [place] [address] [phone] (Wo rk) Social History Tobacco Use Types Packs/Day Years Used Date Smoking Tobacco: Never Assessed Sex Assigned at Date Recorded Not on file documented as of this encounter Nursing Notes Judy Pittman RN - 03/20/2013 9:56 AM CST Field Tax Auditor - Phone Call Reason for call: Care Coordination Discussion/actions: I spoke with Lve at the [employer]. While they understand [...] cover his insulin when he reaches the [facility] next year. Rustam agreed. Shared plan: Lev will contact [facility] pharmacy and cover the cost of Rustam's insulin for another month. I provided Rustam with Lev's contact information and he will call her in April to develop a budget for 2013. Rustam verbalized understanding and agreed with plan of care and follow up. GE ACCOUNT IDENTIFICATION CLERK Judy Pittman RN - 03/19/2013 4:48 PM CST Field Tax Auditor - Phone Call Reason for call: Care [...] in the morning. I contacted Zoie Serrano, fulfillment representative from [employer]. Zoie states she does not carry samples for the analog insulins. Per [id number], Rustam and his are over income for [...] will take to resolve. he states understanding GE ACCOUNT IDENTIFICATION CLERK Verena Padilla - 03/16/2013 4:36 PM CST [...] waiting for this to be addressed 03/19 GE ACCOUNT IDENTIFICATION CLERK Ajit Van - 03/16/2013 3:20 PM CST Patient calling about refill on medication but is inquiring if the [employer] can help him out. documented in this encounter Plan of Treatment Not on filedocumented as of this encounter Visit Diagnoses Not on filedocumented in this encounter Care Teams Clinical Project Assistant Relationship Specialty Start Date End Date Gagandeep Hinojosa MD PCP - General 05/17/12 1415 [place] [address] Vane Zarate Psychiatrist Psychiatry 03/22/12 documented as of this encounter
--- OUTSIDE RECORDS SUMMARY | 2022-02-14 15:03 | XMS_ITS | Encounter Summary ---
:1970 Author Organization [employer] Address [address] [place] [address] Care Team Providers Name Role Phone Gagandeep Hinojosa MD Primary Care Provider Encounter Details Date Type Department Care Team Description 02/14/2013 Lab Visit [facility] Coronary atherosclerosis of unspecified type of vessel, [place] or graft; [address] Type II or unspecified type diabetes mellitus without mention of complication, uncontrolled [place] [id number] Social History Tobacco Use Types Packs/Day Years [...] unspecified type of the resu lts vessel, [place] or graft sect ion. (HRC) Type II [...] (ABNORMAL) Microalb/Creat Ratio (02/14/2013 11:47 AM CDT) [facility] gist Method Time Signature Microalbumin 108.0 [...] - 02/14/2013 6:19 PM CDT Performed at [facility], [address] [place] [address] Gagandeep Hinojosa MD LAB_1 Performing Organization Address City/[facility]/ZIP Code Phon e Number HP CONVERSION [...] Direct LDL(If Needed) (02/14/2013 10:57 AM CDT) [facility] gist Method Time Signature Cholesterol 216 [...] - 02/14/2013 6:03 PM CDT Performed at [facility], [address] [facility], [place] [address] Gagandeep Hinojosa MD LAB_1 Performing Organization Address City/State/ZIP Code Phon e Number HP CONVERSION documented in this encounter Visit Diagnoses Diagnosis Coronary atherosclerosis of unspecified type of vessel, [place] or graft (HRC) Coronary atherosclerosis of unspecified type of vessel, [place] or graft Type II or unspecified type diabetes jasen litus without mention of complication, uncontrolled documented in this encounter Care Teams Surveyor Rod Helper Relationship Specialty Start Date End Date Gagandeep Hinojosa MD PCP - General 05/17/12 [facility]15 [facility] [place] [address] Vane Zarate Psychiatrist Psychiatry 03/22/12 documented as of this encounter
--- OUTSIDE RECORDS SUMMARY | 2022-02-14 15:03 | XMS_ITS | Encounter Summary ---
:1970 Author Organization [employer] Address [address] [place] [address] Care Team Providers Name Role Phone Gagandeep Hinojosa MD Primary Care Provider Reason for Visit Reason Comments Diabetes Encounter Details Date Type Department Care Team Description 05/21/2014 Office Visit Gagandeep Storm Type II or unspecified type diabetes mellitus without mention of complication, uncontrolled (Primary Dx); Romario Rubio MD Background diabetic retinopathy; [address] 1415 [facility] current use of ins ulin; [place] [address] Long-term insulin use in type 2 diabetes ; [phone] [place] VIGIL [address] Unspecified essential hypertension; [phone] Other and unspe cified hyperlipidemia; (Work) Tobacco use disorder; Obesity, unspecified Social History Tobacco Use Types Packs/Day Years Used Date Smoking Tobacco: Never Assessed Sex Assigned at Date Recorded Not on file documented as of this encounter Last Filed Vital Signs Vital Sign Reading Time Taken Comments Blood Pressure 118/77 05/21/2014 1:05 PM FINANCE ACCOUNTING INTERNS[employer]IP Pulse 94 05/21/2014 1:05 PM FIN[employer] ACC[employer] Temperature - - Respiratory Rate - - Oxygen Saturation - - Inhaled Oxygen Concentration - - Weight 106.6 kg (235 lb) 05/21/2014 1:05 PM [employer] ACC[employer] Height - - Body Mass Index 33.72 [...] A normal value is less than 30. NCE ACCOUNTING INTERNSHIP documented in this encounter Progress Notes Gagandeep [...] UMAR: 3 months Aspirin: yes Tobacco: yes [employer] documented in this encounter Plan of Treatment Not on filedocumented as of this encounter Visit Diagnoses Diagnosis Type II or unspecified type diabetes jasen litus without mention of complication, uncontrolled - Primary Background diabetic retinopathy (HRC) Type II or unspecified type diabetes jasen litus with ophthalmic manifestations, not stated as uncontrolled intermodal customer service current use of insulin (HRC) Encounter for [...] unspecified documented in this encounter Care Teams Heel Dipper Relationship Specialty Start Date End Date Gagandeep Hinojosa MD PCP - General 05/17/12 [facility]5 [facility] [place] [address] Vane Zarate Psychiatrist Psychiatry 03/22/12 documented as of this encounter
--- OUTSIDE RECORDS SUMMARY | 2022-02-14 15:03 | XMS_ITS | Encounter Summary ---
:1970 Author Organization [employer] Address [address] [place] [address] Care Team Providers Name Role Phone Gagandeep Hinojosa MD Primary Care Provider Reason for Visit Reason Comments Diabetes Encounter Details Date Type Department Care Team Description 05/14/2014 Notes/Orders [facility] Gagandeep Hinojosa MD 1415 [facility] . 1415 [facility] [place] [address] [place] [address] [phone] (Wo rk) Social History Tobacco Use Types Packs/Day Years Used Date Smoking Tobacco: Never Assessed Sex Assigned at Date Recorded Not on file documented as of this encounter Miscellaneous Notes Letter - Gagandeep Hinojosa MD - 05/14/2014 12:00 AM CST 05/14/2014 Timur Krishnamurthy [address] [place] [id number] : 1970 Dear Timur: I am contacting you with a reminder that it is time for your diabetes visit , please call [phone] to schedule your visit due in April. [...] You can schedule your lab appointment at [phone]. Please continue to take your medications as prescribed. We look forward to seeing you again. Gagandeep Hinojosa MD CIATE MANAGER AFFILIATE MARKETING documented in this encounter Plan of Treatment Not on filedocumented as of this encounter Visit Diagnoses Not on filedocumented in this encounter Care Teams Gas Station Service Attendant Relationship Specialty Start Date End Date Gagandeep Hinojosa MD PCP - General 05/17/[address] [place] [address] [place] [address] Vane Zarate Psychiatrist Psychiatry 03/22/12 documented as of this encounter
--- OUTSIDE RECORDS SUMMARY | 2022-02-14 15:03 | XMS_ITS | Encounter Summary ---
:1970 Author Organization [employer] Address [address], [place] [address] Care Team Providers Name Role Phone Gagandeep Hinojosa MD Primary Care Provider Encounter Details Date Type Department Care Team Description 11/21/2013 Notes/Orders Heart & Vascular Juan Daniel Caba Decre [facility] Cardiology ejection fraction [address] (Primary Dx) [place] [phone] (Wo rk) Social History Tobacco Use Types [...] a message to call back - ext [phone] Jacqueline Vizcaino - 11/23/2013 12:51 PM CDT left message to call us back. documented in this encounter Plan of Treatment Not on filedocumented as of this encounter Visit Diagnoses Diagnosis Decreased cardiac ejection fraction - Pr imary documented in this encounter Care Teams Manager Of Pharmacy Relationship Specialty Start Date End Date Gagandeep Hinojosa MD PCP - General 05/17/12 1415 [place] [address] Vane Zarate Psychiatrist Psychiatry 03/22/12 documented as of this encounter
--- OUTSIDE RECORDS SUMMARY | 2022-02-14 15:03 | XMS_ITS | Encounter Summary ---
:1970 Author Organization [employer] Address [address] [place] [address] Care Team Providers Name Role Phone Gagandeep Hinojosa MD Primary Care Provider Encounter Details Date Type Department Care Team Description 01/16/2014 Lab Visit [facility] Type II or unspecified type diabetes mellitus without mention of complication, uncontrolled; [address] Other and unspecified hyperl ipidemia [place] [address] Social History Tobacco Use Types Packs/Day Years [...] (ABNORMAL) Microalb/Creat Ratio (01/16/2014 10:18 AM CDT) [facility] gist Method Time Signature Microalbumin 120.8 mg/L HP CONVERSION Urine U Creat Random 102 mg/dL HP CONVERSION Microalbumin/Cre 118.4 (H) 0.0 - HP CONVERSION atinine Ratio 30.0 Specimen Anatomical Collection Method Collection Time Receive d Time (Source) Location / / Volume Laterality 01/16/2014 10:18 01/16/2014 AM CDT 12:42 PM CDT Gagandeep Hinojosa MD LAB_1 Performing Organization Address City/[facility] Phon e Number HP [...] - 01/16/2014 12:32 [place] [address] Gagandeep Hinojosa MD LAB_1 Performing Organization Address [facility] Phon e Number HP [...] - 01/16/2014 12:32 PM CDT Performed at [facility], [address] [place] [address] Gagandeep Hinojosa MD LAB_1 Performing Organization Address City/[facility]/ZIP [facility] Phon e Number HP CONVERSION (ABNORMAL) HEMOGLOBIN A1C, RAPID (01/16/2014 10:14 AM CDT) [facility] gist Method Time Signature Hemoglobin A1C [...] - 01/16/2014 10:24 AM CDT Performed at [facility], [address] [place] [address] Gagandeep Hinojosa MD LAB_1 Performing Organization Address [facility] Phon e Number HP CONVERSION documented in this encounter Visit Diagnoses Diagnosis Type II or unspecified type diabetes jasen litus without mention of complication, uncontrolled Other and unspecified hyperlipidemia (HR C) Other and unspecified hyperlipidemia documented in this encounter Care Teams Marine Mechanic Relationship Specialty Start Date End Date Gagandeep Hinojosa MD PCP - General 05/17/[address] [place] [address] Vane Zarate Psychiatrist Psychiatry 03/22/12 documented as of this encounter
--- OUTSIDE RECORDS SUMMARY | 2022-02-14 15:03 | XMS_ITS | Encounter Summary ---
:1970 Author Organization [employer] Address [address] [address] Care Team Providers Name Role Phone Gagandeep Hinojosa MD Primary Care Provider Encounter Details Date Type Department Care Team Description 04/10/2013 Hospital Encounter Heart & Vascular Chest pain, unspecified Center Nuclear (Primary Dx) Cardiology [address] [facility] [place] [address] Social History Tobacco Use Types [...] Procedure Name Priority Date/Time Associated Diagnosis [facility] OUTREACH NUCLEAR Routine 04/10/2013 4:12 PM Chest pain, Resul ts for this STUDY INSIDE TESTER unspecified procedure are i n the results section. documented in this encounter Results Outreach Nuclear Study (04/10/2013 4:12 PM INSIDE TESTER) Specimen (Source) Anatomical Location Collection Method / Collectio n Time Received Time / Laterality Volume Narrative HP CONVERSION - 04/10/2013 4:12 PM INSIDE TESTER See results in [facility]. Silverio Cabrera MD PN CARDIAC SERVICES ORDERABL ES Performing Organization Address City/State/ZIP Code Phon e Number HP CONVERSION documented in this encounter Visit Diagnoses Diagnosis Chest pain, unspecified - Primary documented in this encounter Care Teams Irs Agent Relationship Specialty Start Date End Date Gagandeep Hinojosa MD PCP - General 05/17/12 1415 [facility] [place] [address] Vane Zarate Psychiatrist Psychiatry 03/22/12 documented as of this encounter
--- OUTSIDE RECORDS SUMMARY | 2022-02-14 15:03 | XMS_ITS | Encounter Summary ---
:1970 Author Organization [employer] Address [address] [place] [address] Care Team Providers Name Role Phone Gagandeep Michaud MD Primary Care Provider Reason for Visit Reason Comments Refill Encounter Details Date Type Department Care Team Description 05/01/2014 [facility]aud [facility] . 1415 [place] [address] [place] [address] [phone] (Wo rk) Social History Tobacco Use Types Packs/Day Years Used Date Smoking Tobacco: Never Assessed Sex Assigned at Date Recorded Not on file documented as of this encounter Nursing Notes Alessia Urias - 05/01/2014 1:03 PM CST Requested medication was last renewed on 01/16/14 and sent to [facility] pharmacy. Requested Prescriptions Refused Prescriptions Disp [...] - K: 4.6mEq/L on 01/16/2014 Powered by [employer], Reference: [id number], 05/01/2014 12:19:14 PM Minerva GRANGER REFILL ([id number]) documented in this encounter Plan of Treatment Not on filedocumented as of this encounter Visit Diagnoses Not on filedocumented in this encounter Care Teams Foot Specialist Relationship Specialty Start Date End Date Gagandeep Michaud MD PCP - General 05/17/12 [facility]5 [place] [id number] Vane Zarate Psychiatrist Psychiatry 03/22/12 documented as of this encounter
--- OUTSIDE RECORDS SUMMARY | 2022-02-14 15:03 | XMS_ITS | Encounter Summary ---
:1970 Author Organization [employer] Address [address] [place] [address] Care Team Providers Name Role Phone Gagandeep Hinojosa MD Primary Care Provider Reason for Visit Reason Comments Diabetes Encounter Details Date Type Department Care Team Description 07/20/2013 Office Visit Gagandeep Storm Type II or unspecified type diabetes mellitus without mention of complication, uncontrolled (Primary Dx); Romario Rubio MD Hyperlipidemia LDL goal < 70; [address] [place] 1415 [facility] Onychomy cosis; Ave. Ave Tobacco abuse; [place] [address] [place], [place] prison current use of ins ulin; [phone] Long-term insulin use in type 2 diabetes ; [phone] Unspecified ess ential hypertension; (Work) Other and unspecified hyperlipidemia; [phone] Tobacco use dis order; (Fax) Obesity, unspec [...] - 07/21/2013 12:37 AM CDT [place] [phone] My Diabetes at a Glance Aspirin Use [...] nail Tobacco abuse (HRC) Tobacco use disorder prison current use of insulin (HRC) Encounter for [...] unspecified documented in this encounter Care Teams Checkout Supervisor Relationship Specialty Start Date End Date Gagandeep Hinojosa MD PCP - General 05/17/12 [facility] [address] Vane Zarate Psychiatrist Psychiatry 03/22/12 documented as of this encounter
--- OUTSIDE RECORDS SUMMARY | 2022-02-14 15:03 | XMS_ITS | Encounter Summary ---
:1970 Author Organization [facility] [employer] Address [address] [place] [address] Care Team Providers Name Role Phone Gagandeep Hinojosa MD Primary Care Provider Encounter Details Date Type Department Care Team Description 01/16/2014 Lab Visit [facility] Hypertriglyceridemia; [address] Tachycardia, unspecified [place] Vigil [id number] Social History Tobacco Use Types Packs/Day Years [...] Vanessa Ram PA-C LAB_1 Performing Organization Address City/[facility] Code Phon e Number HP CONVERSION Lipase (01/16/2014 10:14 AM CDT) athologist Signature Lipase 47 5 - 70 U/L HP CONVERSION Specimen Anatomical Collection Method Collection Time Receive d Time (Source) Location / / Volume Laterality 01/16/2014 10:14 01/16/2014 AM CDT 11:49 AM CDT Narrative HP CONVERSION - 01/16/2014 2:11 PM CDT Performed at [facility], [address] [place] [address] Vanessa Ram PA-C LAB_1 Performing Organization Address [facility] Phon e Number HP CONVERSION Amylase (01/16/2014 10:14 AM CDT) athologist Signature Amylase Serum 48 25 - 115 HP CONVERSION U/L Specimen Anatomical Collection Method Collection Time Receive d Time (Source) Location / / Volume Laterality 01/16/2014 10:14 01/16/2014 AM CDT 11:49 AM CDT Narrative HP CONVERSION - 01/16/2014 2:11 [place] [address] Vanessa Ram PA-C LAB_1 Performing Organization Address [facility] Phon e Number HP CONVERSION (ABNORMAL) Triglycerides (> 12 Hr. Fast) (01/16/2014 10:14 AM CDT) athologist Signature Triglycerides 614 (H) 0 - 149 HP CONVERSION mg/dL Specimen Anatomical Collection Method Collection Time Receive d Time (Source) Location / / Volume Laterality 01/16/2014 10:14 01/16/2014 AM CDT 11:49 AM CDT Narrative HP CONVERSION - 01/16/2014 2:11 PM CDT Performed at [facility], [address] [place] [address] Vanessa Ram PA-C LAB_1 Performing Organization Address [facility] Phon e Number HP CONVERSION documented in this encounter Visit Diagnoses Diagnosis Hypertriglyceridemia (HRC) Pure hyperglyceridemia Tachycardia, unspecified documented in this encounter Care Teams Bistro Server Relationship Specialty Start Date End Date Gagandeep Hinojosa MD PCP - General 1/23/13 1415 [facility] [place] [address] Vane Zarate Psychiatrist Psychiatry 03/22/12 documented as of this encounter
--- OUTSIDE RECORDS SUMMARY | 2022-02-14 15:03 | XMS_ITS | Encounter Summary ---
:1970 Author Organization [facility] Address [address] [place] [address] Care Team Providers Name Role Phone Gagandeep Hinojosa MD Primary Care Provider Reason for Visit Reason Comments Wheezing Encounter Details Date Type Department Care Team Description 10/19/2013 Nurse Triage [facility] Gagandeep Hinojosa MD Wheezing [facility] 1415 [facility] [place] [address] [place] [address] [phone] (Wo rk) Social History Tobacco Use Types Packs/Day Years Used Date Smoking Tobacco: Never Assessed Sex Assigned at Date Recorded Not on file documented as of this encounter Nursing Notes Marci Oliveira, RN - 10/19/2013 2:47 PM CDT Protocol: BREATHING [id number] Affirmative: Wheezing can be heard across the room Disposition of Go To ED Now suggested. Pt reports chest tightness and cough for 2-3 days, wheezing x24 hours that can be heard across the room, no fever, reports being able to take deep breaths in and out, nurse advised ER, pt agreeable andverbalized understanding documented in this encounter Plan of Treatment Not on filedocumented as of this encounter Visit Diagnoses Not on filedocumented in this encounter Care Teams Casino Cashier Manager Relationship Specialty Start Date End Date Gagandeep Hinojosa MD PCP - General 05/17/[address] [place] [address] Vane aZrate Psychiatrist Psychiatry 03/22/12 documented as of this encounter
--- OUTSIDE RECORDS SUMMARY | 2022-02-14 15:03 | XMS_ITS | Encounter Summary ---
:1970 Author Organization [employer] Address [address] [address] Care Team Providers Name Role Phone Gagandeep Hinojosa MD Primary Care Provider Reason for Visit Reason Comments RESULTS, TEST Patient Calling Back Encounter Details Date Type Department Care Team Description 11/27/2013 Telephone [facility] Gagandeep Hinojosa RESUL TS, TEST; Patient Medicine MD Calling Back 1415 [facility] . 1415 [place] [address] [place], [place] [address] (Wo rk) Social History Tobacco Use Types [...] PM CDT Patient requesting results. competed at [facility] on 11/27/13 Show images for [...] and where was test done? 11/27/13 at [place] Patient has questions on the results and if he should have any work restrictions. Please advise. Who ordered the test? Gagandeep Hinojosa MD documented in this encounter Plan of Treatment Not on filedocumented as of this encounter Visit Diagnoses Not on filedocumented in this encounter Care Teams Multifocal Button Inspector Relationship Specialty Start Date End Date Gagandeep Hinojosa MD PCP - General 05/17/12 14[address] [place] [address] Vane Zarate Psychiatrist Psychiatry 03/22/12 documented as of this encounter
--- OUTSIDE RECORDS SUMMARY | 2022-02-14 15:03 | XMS_ITS | Encounter Summary ---
:1970 Author Organization [facility] Address [address] [place] [address] Care Team Providers Name Role Phone Gagandeep Hinojosa MD Primary Care Provider Reason for Visit Reason Comments Diabetes Encounter Details Date Type Department Care Team Description 03/13/2014 Notes/Orders [facility] Gagandeep Hinojosa MD 1415 [facility] . [address]15 [place] [address] [place] [address] [phone] (Wo rk) Social History Tobacco Use Types Packs/Day Years Used Date Smoking Tobacco: Never Assessed Sex Assigned at Date Recorded Not on file documented as of this encounter Plan of Treatment Not on filedocumented as of this encounter Visit Diagnoses Not on filedocumented in this encounter Care Teams Construction Plant Operator Relationship Specialty Start Date End Date Gagandeep Hinojosa MD PCP - General 05/17/[address] [facility] [address] Vane Zarate Psychiatrist Psychiatry 03/22/12 documented as of this encounter
--- OUTSIDE RECORDS SUMMARY | 2022-02-14 15:03 | XMS_ITS | Encounter Summary ---
:1970 Author Organization [employer] Address [address] [place] [address] Care Team Providers Name Role Phone Gagandeep Hinojosa MD Primary Care Provider Reason for Visit Reason Comments Diabetes Encounter Details Date Type Department Care Team Description 03/14/2013 Office Visit Gagandeep Storm Type II or unspecified type diabetes mellitus without mention of complication, uncontrolled (Primary Dx); Romario Rubio MD Need for influenza vaccination; [address] [place] 1415 [facility] Coronary atherosclerosis of unspecified type of vessel, [place] or graft; [address]. Ave watermelon inspector current use of insulin; [place] [address] [place] Long-term insulin use in typ e 2 diabetes; [phone] [address] Unspecified essential hypertension; [phone] Tobacco use dis order; (Work) Obesity, unspecified Social History Tobacco Use Types Packs/Day Years Used Date Smoking Tobacco: Never Assessed Sex Assigned at Date Recorded Not on file documented as of this encounter Last Filed Vital Signs Vital Sign Reading Time Taken Comments Blood Pressure 122/74 03/14/2013 1:46 PM CLOUD ARCHITECT Pulse 98 03/14/2013 1:46 PM CLOUD ARCHITECT Temperature - - Respiratory Rate - - Oxygen Saturation - - Inhaled Oxygen Concentration - - Weight 105.2 kg (232 lb) 03/14/2013 1:46 PM CLOUD ARCHITECT Height - - Body Mass Index 33.29 [...] A normal value is less than 30. D ARCHITECT documented in this encounter Progress Notes Gagandeep [...] UMAR: 3 months Aspirin: yes Tobacco: yes D ARCHITECT documented in this encounter Plan of Treatment Not on filedocumented as of this encounter Visit Diagnoses Diagnosis Type II or unspecified type diabetes jasen litus without mention of complication, uncontrolled - Primary Need for influenza vaccination Need for prophylactic vaccination and in oculation against influenza Coronary atherosclerosis of unspecified type of vessel, [place] or graft (HRC) Coronary atherosclerosis of unspecified type of vessel, [place] or graft watermelon inspector current use of insulin (HRC) Encounter for long-term (current) use of insulin Long-term insulin use in type 2 diabetes (HRC) Type II or unspecified type diabetes jasen litus without mention of complication, not stated as uncontrolled Unspecified essential hypertension (HRC) Unspecified essential hypertension Tobacco use disorder (HRC) Tobacco use disorder Obesity, unspecified (HRC) Obesity, unspecified documented in this encounter Care Teams Research Associate Policy Relationship Specialty Start Date End Date Gagandeep Hinojosa MD PCP - General 05/17/12 [address] [place] [address] Vane Zarate Psychiatrist Psychiatry 03/22/12 documented as of this encounter
--- OUTSIDE RECORDS SUMMARY | 2022-02-14 15:03 | XMS_ITS | Encounter Summary ---
:1970 Author Organization [facility] Address [address], [place] [address] Care Team Providers Name Role Phone Gagandeep Hinojosa MD Primary Care Provider Encounter Details Date Type Department Care Team Description 11/21/2013 Hospital Encounter Heart & Vascular Chest pain, unspecified (Primary Dx); Center Nuclear ASHD (arterio sclerotic heart disease) Cardiology [facility]0 [facility] [place] [address] Social History Tobacco Use Types [...] Coronary atherosclerosis of unspecified type of vessel, [place] or graft documented in this encounter Care Teams Copy Holder Relationship Specialty Start Date End Date Gagandeep Hinojosa MD PCP - General 05/17/12 1415 [facility] [place] [id number] Vane Zarate Psychiatrsamantha Psychiatry 03/22/12 documented as of this encounter
--- OUTSIDE RECORDS SUMMARY | 2022-02-14 15:03 | XMS_ITS | Encounter Summary ---
:1970 Author Organization [facility] Address [address], [place] [address] Care Team Providers Name Role Phone Gagandeep Hinojosa MD Primary Care Provider Reason for Visit Reason Comments Refill Encounter Details Date Type Department Care Team Description 02/26/2014 Refill [facility] Maricarmen Ram PA-C Refill Cardiology [address] [place] [address] [place] [address] [phone] Social History Tobacco Use Types Packs/Day Years [...] on filedocumented in this encounter Care Teams Reeler Operator Relationship Specialty Start Date End Date Gagandeep Hinojosa MD PCP - General 05/17/12 [address] [place] [address] Vane Zarate Psychiatrist Psychiatry 03/22/12 documented as of this encounter
--- OUTSIDE RECORDS SUMMARY | 2022-02-14 15:03 | XMS_ITS | Encounter Summary ---
:1970 Author Organization [employer] Address [address] [place] [address] Care Team Providers Name Role Phone Gagandeep Hinojosa MD Primary Care Provider Encounter Details Date Type Department Care Team Description 05/21/2014 Lab Visit [facility] Type II or unspecified type [address] diabetes mellitus without KATIANA Vigil [id number] mention of complication, uncontrolled Social History Tobacco Use Types Packs/Day Years Used Date Smoking Tobacco: Never Assessed Sex Assigned at Date Recorded Not on file documented as of this encounter Plan of Treatment Not on filedocumented as of this encounter Procedures Procedure Name Priority Date/Time Associated Diagnosis Comme nts ALBUMIN/CREAT RATIO Routine 05/21/2014 12:21 Type II or Resu lts for this PM BOROUGH COORDINATOR unspecified type procedure a re in diabetes mellitus the result s without mention of section. complication, uncontrolled (HRC) HEMOGLOBIN A1C, Routine 05/21/2014 12:06 Type II or Results for this RAPID PM BOROUGH COORDINATOR unspecified type procedure a re in diabetes mellitus the result s without mention of section. complication, uncontrolled (HRC) LIPID PANEL AND Routine 05/21/2014 12:06 Type II or Results for this DIRECT LDL(IF PM BOROUGH COORDINATOR unspecified type procedure are in NEEDED) diabetes mellitus the result s without mention of section. complication, uncontrolled (HRC) CREATININE / GFR Routine 05/21/2014 12:06 Type II or Results for this PM BOROUGH COORDINATOR unspecified type procedure a re in diabetes mellitus the result s without mention of section. complication, uncontrolled (HRC) ELECTROLYTE PANEL Routine 05/21/2014 12:06 Type II or Result s for this PM BOROUGH COORDINATOR unspecified type procedure a re in diabetes mellitus the result s without mention of section. complication, uncontrolled (HRC) documented in this encounter Results (ABNORMAL) Microalb/Creat Ratio (05/21/2014 12:21 PM BOROUGH COORDINATOR) [facility] gist Method Time Signature Microalbumin 129.0 mg/L HP CONVERSION Urine U Creat Random 142 mg/dL HP CONVERSION Microalbumin/Cre 90.8 (H) 0.0 - HP CONVERSION atinine Ratio 30.0 Specimen Anatomical Collection Method Collection Time Receive d Time (Source) Location / / Volume Laterality 05/21/2014 12:21 05/21/2014 3:33 PM BOROUGH COORDINATOR PM BOROUGH COORDINATOR Narrative HP CONVERSION - 05/21/2014 4:13 PM BOROUGH COORDIN[place] [address] Gagandeep Hinojosa MD LAB_1 Performing Organization Address [facility] Phon e Number HP CONVERSION Creatinine / GFR (05/21/2014 12:06 PM BOROUGH COORDINATOR) athologist Signature Creatinine 0.8 0.4 - 1.3 [...] Volume Laterality 05/21/2014 12:06 05/21/2014 5:17 PM BOROUGH COORDINATOR PM BOROUGH COORDINATOR Narrative HP CONVERSION - 05/21/2014 6:27 PM BOROUGH COORDINATOR Performed at [facility], [address] [place] [address] Gagandeep Hinojosa MD LAB_1 Performing Organization Address [facility] Phon e Number HP CONVERSION (ABNORMAL) Electrolyte Panel (05/21/2014 12:06 PM BOROUGH COORDINATOR) athologist Signature Sodium 133 (L) 137 - 147 HP CONVERSION mEq/L Potassium 4.4 3.5 - 5.2 HP CONVERSION mEq/L Chloride 95 (L) 98 - 110 HP CONVERSION mEq/L Bicarbonate 27 23 - 33 HP CONVERSION mmol/L Specimen Anatomical Collection Method Collection Time Receive d Time (Source) Location / / Volume Laterality 05/21/2014 12:06 05/21/2014 5:17 PM BOROUGH COORDINATOR PM BOROUGH COORDINATOR Narrative HP CONVERSION - 05/21/2014 6:27 PM BOROUGH COORDINATOR Performed at [facility], [address] [place] [address] Gagandeep Hinojosa MD LAB_1 Performing Organization Address [facility] Phon e Number HP CONVERSION (ABNORMAL) Lipid Panel and Direct LDL(If Needed) (05/21/2014 12:06 PM BOROUGH COORDINATOR) [facility] [employer] Method Time Signature Cholesterol 152 0 - [...] Volume Laterality 05/21/2014 12:06 05/21/2014 5:17 PM BOROUGH COORDINATOR PM BOROUGH COORDINATOR Narrative HP CONVERSION - 05/21/2014 6:27 PM BOROUGH COORDINATOR Performed at [facility], [address] [place] [address] Gagandeep Hinojosa MD LAB_1 Performing Organization Address [facility] Phon e Number HP CONVERSION (ABNORMAL) HEMOGLOBIN A1C, RAPID (05/21/2014 12:06 PM BOROUGH COORDINATOR) [facility] Method Time Signature Hemoglobin A1C 11.0 [...] / Volume Laterality 05/21/2014 12:06 05/21/2014 PM BOROUGH COORDINATOR 12:06 PM BOROUGH COORDINATOR Narrative HP CONVERSION - 05/21/2014 12:22 PM BOROUGH COORDINATOR Performed at [facility], [address] [place] [address] Gagandeep Hinojosa MD LAB_1 Performing Organization Address City/State/ZIP Code Phon e Number HP CONVERSION documented in this encounter Visit Diagnoses Diagnosis Type II or unspecified type diabetes jasen litus without mention of complication, uncontrolled documented in this encounter Care Teams Wallpaper Hanger Relationship Specialty Start Date End Date Gagandeep Hinojosa MD PCP - General 05/17/12 [address] [place] [address] Vane Zarate Psychiatrsamantha Psychiatry 03/22/12 documented as of this encounter
--- OUTSIDE RECORDS SUMMARY | 2022-02-14 15:03 | XMS_ITS | Encounter Summary ---
:1970 Author Organization [employer] Address [address] [place] [address] Care Team Providers Name Role Phone Gagandeep Hinojosa MD Primary Care Provider Reason for Visit Reason Comments UPDATE Encounter Details Date Type Department Care Team Description 01/17/2014 Telephone [place] [facility] Vanessa Ram PA-C UPDATE 15[address] [facility] . [address] [place] [address] [place], [place] [address] (Wo rk) Social History Tobacco Use Types [...] for pt. to call me back . [phone] Vanessa Ram PA-C - 01/17/2014 12:40 PM [...] are still elevated since he was in [place] when they were 1274. Further control of [...] filedocumented in this encounter Care Teams Senior Engineering Associate Relationship Specialty Start Date End Date Gagandeep Hinojosa MD PCP - General 05/17/12 [address] [place] [address] Vane Zarate Psychiatrist Psychiatry 03/22/12 documented as of this encounter
--- OUTSIDE RECORDS SUMMARY | 2022-02-14 15:03 | XMS_ITS | Encounter Summary ---
:1970 Author Organization [facility] Address [address] [place] [address] Care Team Providers Name Role Phone Gagandeep Hinojosa MD Primary Care Provider Reason for Visit Reason Comments Patient Calling Back Encounter Details Date Type Department Care Team Description 11/23/2013 Telephone [place] [facility] Gagandeep Hinojosa, Anastasia nt Calling Back Medicine [address] [facility] . [address] [place] [address] [place] [address] [phone] (Wo rk) Social History Tobacco Use Types [...] that he is returning a call from [facility] from around 10 am today.He is aware of his Echocardiogram at [facility] on 11/27 at 3:00. To [facility] for review. An Maldonado - 11/23/2013 1:37 PM CDT Patient says he returning a call from the [facility] from [facility] this morning. documented in this encounter Plan of Treatment Not on filedocumented as of this encounter Visit Diagnoses Not on filedocumented in this encounter Care Teams Industrial Chemicals Supervisor Relationship Specialty Start Date End Date Gagandeep Hinojosa MD PCP - General 05/17/[address] [place] [address] KATIANA Gerber [address] Vane Zarate Psychiatrist Psychiatry 03/22/12 documented as of this encounter
--- OUTSIDE RECORDS SUMMARY | 2022-02-14 15:03 | XMS_ITS | Encounter Summary ---
:1970 Author Organization [employer] Address [address] [place] [address] Care Team Providers Name Role Phone Gagandeep Hinojosa MD Primary Care Provider Reason for Visit Reason Comments LAB RESULTS Encounter Details Date Type Department Care Team Description 07/18/2013 Telephone [place] [facility] Gagandeep Hinojosa MD LAB RESULTS 14[address] [facility] . [address] [facility] [place] [address] [place] [address] [phone] (Wo rk) Social History Tobacco Use Types [...] on filedocumented in this encounter Care Teams Telecom Coordinator Relationship Specialty Start Date End Date Gagandeep Hinojosa MD PCP - General 05/17/12 1415 [facility] KAT[place] Gerber [address] Vane Zarate Psychiatrist Psychiatry 03/22/12 documented as of this encounter
--- OUTSIDE RECORDS SUMMARY | 2022-02-14 15:03 | XMS_ITS | Encounter Summary ---
:1970 Author Organization [employer] Address [address] [place] [address] Care Team Providers Name Role Phone Gagandeep Michaud MD Primary Care Provider Reason for Visit Reason Comments Follow-up Encounter Details Date Type Department Care Team Description 01/09/2014 Office Visit [facility] Vanessa Ram, Coronary atherosclerosis of unspecified type of vessel, [place] or graft (Primary Dx); [address] (arteriosclerotic heart disease); [address] [place] [place], old; [place] [address] Blvd Hyperlipidemia LDL goal < 70; [phone] [place], [place] Type II or unspecified type diabetes mellitus without mention of complication, uncontrolled; [address] Tobacco use disorder; [phone] Hypertriglyceri demia; (Work) Tachycardia, unspecified Social History [...] 6 weeks. Please contact the lab at [phone] to schedule a lab appointment at [facility] after a 12 hour fast mid May. They will have the lab orders when you get there, so you are not responsible to bring a lab slip. 2. Call Keri FINCH [phone] if you develop abdominal pain, nausea or [...] Ram PA-C Service: (none) Author Type: Physician Conference Specialist Filed: 01/17/14 1538 Note Time: 01/10/14 1053 Status: Signed Hatch Boss: Vanessa Ram PA-C (Physician Conference Specialist) NAME: SAHRLENE VARNER MR#: [id number] CSN: [id number] AUTHENTICATING CLINICIAN: Vanessa Ram PA-C CONFIRM #: [id number] LOC: 3205 CLINIC PROGRESS NOTE DATE OF VISIT: 01/09/2014 : 1970 CHIEF COMPLAINT: Coronary artery disease. Mr. Varner is a pleasant, 43-year-old gentleman who presents to the [facility]. He was recently discharged from [facility] on December 19, after presenting withprolonged chest [...] On his angiogram in 2012, he had yjya-ow-axcuecwy diffuse disease, specifically in the distal RCA [...] free samples. MEDICATIONS: Reviewed and updated in c-crowd. Cardiac medications include aspirin 81 mg daily, simvastatin 80 mg daily, currently Coreg 6.25 mg daily, lisinopril 5 mg daily, omega-3 two capsules twice a day and Jrsupr02 mg p.r.n. ADVERSE DRUG REACTIONS/ALLERGIES: Reviewed and updated in c-crowd. REVIEW OF SYSTEMS: A complete 12-point review [...] strong pedal pulses. Recent laboratory data at [facility] on December 19: White blood cells 6.2, [...] of 60%. Normal left ventricular size with dmgt-qk-laftqszh concentric left ventricular hypertrophy. No regional wall [...] a bare-metal stent in April 2011. b. Zhlu-sf-qotakzfo diffuse nonobstructive distal disease on coronary angiogram on October 27, 2012. Thepreviously deployed stent in the posterior descending branch of the right coronary artery was patent, with upim-uk-hyqkyzju in-stent restenosis. This did not appear to [...] goal. 3. Hyperlipidemia. We reviewed the new [place] [employer] guidelines that outlined that withhis [...] to do that. CC: VALERI NORRIS MD [address] [place] [address] GAGANDEEP MICHAUD MD [address] [place] [address] LJR:MEDQ C: CONFIRM #: [id number] documented in this encounter Plan of Treatment Not on filedocumented as of this encounter Visit Diagnoses Diagnosis Coronary atherosclerosis of unspecified type of vessel, [place] or graft (HRC) - Primary Coronary atherosclerosis of unspecified type of vessel, [place] or graft ASHD (arteriosclerotic heart disease) (H RC) Coronary atherosclerosis of unspecified type of vessel, [place] or graft [place], old (HRC) Old myocardial infarction Hyperlipidemia LDL goal < 70 (HRC) Other and unspecified hyperlipidemia Type II or unspecified type diabetes jasen litus without mention of complication, uncontrolled Tobacco use disorder (HRC) Tobacco use disorder Hypertriglyceridemia (HRC) Pure hyperglyceridemia Tachycardia, unspecified documented in this encounter Care Teams Mold Stacker Relationship Specialty Start Date End Date Gagandeep Michaud MD PCP - General 05/17/12 [address] [facility] [place] [address] Vane Zarate Psychiatrist Psychiatry 03/22/12 documented as of this encounter
--- OUTSIDE RECORDS SUMMARY | 2022-02-14 15:03 | XMS_ITS | Encounter Summary ---
:1970 Author Organization [employer] Address [address] [address] Care Team Providers Name Role Phone Gagandeep Hinojosa MD Primary Care Provider Reason for Visit Reason Comments Vomiting Diarrhea Abdominal Pain Encounter Details Date Type Department Care Team Description 03/07/2013 Hospital Encounter [facility], Abdo rosalie pain, unspecified site (Primary Dx); Care Millicent Belcher MD Dizziness; [address] [place] [address]; Drive [place], [place] [address] [phone] Social History Tobacco Use Types Packs/Day Years Used Date Smoking Tobacco: Never Assessed Sex Assigned at Date Recorded Not on file documented as of this encounter Last Filed Vital Signs Vital Sign Reading Time Taken Comments Blood Pressure 122/85 03/07/2013 2:52 PM WALL WASHER Pulse 97 03/07/2013 2:52 PM WALL WASHER Temperature 36.3 ??C (97.3 ??F) 03/07/2013 1:17 PM WALL WASHER Respiratory Rate 16 03/07/2013 2:52 PM WALL WASHER Oxygen Saturation - - Inhaled Oxygen Concentration [...] 03/16/13 1214 Note Time: 03/07/131726 Status: Signed Sr Vice President: Millicent Nieves MD (Physician) NAME: SHARLENE VARNER MR#: [id number] CSN: [id number] AUTHENTICATING CLINICIAN: Millicent Nieves MD CONFIRM #: [id number] LOC: [facility] PROGRESS NOTE DATE [...] MEDICATIONS: Reviewed. SOCIAL HISTORY: He works at [employer]. Began smoking cigarettes again. Does not drink [...] or persist, he will return for recheck. SMS:[employer] C: CONFIRM #: [id number] WASHER Zayra Orozco RN - 03/07/2013 3:26 PM CST IV removed with cannula intact per order; pressure dressing applied to site. Pt verbalized improvement in condition and decrease in nausea. Pt discharged alert and oriented. Екатерина Broderick RN - 03/07/2013 2:55 PM CST VSS. Pt denies signs of allergic reaction. Pt resting comfortably. Pt alert. Nausea resolving. IV patent. Will continue to monitor pt. WASHER Екатерина Broderick RN - 03/07/2013 2:37 PM CST Pt c/o feeling head coyle sensation, dizziness. Dr. Nieves informed. See BG result. documented in this encounter Miscellaneous Notes Miscellaneous - 03/07/2013 3:26 PM CSTNotes Recorded by Gina Ash MD on 03/07/2013 at 9:[address] Nieves review on 03/08/13. WASHER Medication History - Elvis Ellington MD - [...] RN Intravenous - 03/07/13 1437 - - WASHER documented in this encounter Plan of Treatment Not on filedocumented as of this encounter Procedures Procedure Name Priority Date/Time Associated Diagnosis Comme nts BGS NO CHARGE Routine 03/07/2013 2:35 PM Results for this WALL WASHER procedure are i n the results section. ANION GAP STAT 03/07/2013 1:53 PM Results f or this WALL WASHER procedure are i n the results section. COMPLETE BLOOD STAT 03/07/2013 1:53 PM Abdominal pain, Resu lts for this COUNT-W/DIFF WALL WASHER unspecified site procedure a re in the results section. LIVER PANEL(HEPATIC STAT 03/07/2013 1:53 PM Abdominal pain, Results for this FUNCTION PANEL) WALL WASHER unspecified site procedur e are in the results section. BASIC METABOLIC PANEL STAT 03/07/2013 1:53 PM Abdominal sesar n, Results for this WALL WASHER unspecified site procedure a re in the results section. DIFFERENTIAL STAT 03/07/2013 1:53 PM Results f or this WALL WASHER procedure are i n the results section. VALPROIC ACID STAT 03/07/2013 1:53 PM Abdominal pain, Resul ts for this (DEPAKENE) WALL WASHER unspecified site procedure a re in the results section. LIPASE STAT 03/07/2013 1:53 PM Abdominal pain, Result s for this WALL WASHER unspecified site procedure a re in the results section. OCCULT BLOOD, EXAM 1 STAT 03/07/2013 1:52 PM Abdominal pain , Results for this WALL WASHER unspecified site procedure a re in the results section. URINE MICROSCOPIC STAT 03/07/2013 1:37 PM Abdominal pain, R esults for this WALL WASHER unspecified site procedure a re in the results section. URINALYSIS STAT 03/07/2013 1:37 PM Abdominal pain, Result s for this ROUTINE(MICRO IF POS) WALL WASHER unspecified site pr ocedure are in the results section. BGS NO CHARGE Routine 03/07/2013 1:24 PM Results for this WALL WASHER procedure are i n the results section. documented in this encounter Results BGS NO CHARGE (03/07/2013 2:35 PM WALL WASHER) athologist Signature Bedside Blood 147 mg/dL HP CONVERSION Glucose Test Comment: Performed at [facility], [address], [place]. [address] Specimen Anatomical Collection Method Collection Time Receive d Time (Source) Location / / Volume Laterality 03/07/2013 2:35 PM 3 2:40 WALL WASHER PM WALL WASHER Millicent Nieves MD LAB_1 Performing Organization Address City/State/ZIP Code Phon e Number HP CONVERSION (ABNORMAL) Differential (03/07/2013 1:53 PM WALL WASHER) [facility] gist Method Time Signature Absolute 7.2 1.8 [...] Volume Laterality 03/07/2013 1:53 PM 3 1:52 WALL WASHER PM WALL WASHER Narrative HP CONVERSION - 03/07/2013 2:27 PM WALL WASHER Performed at [facility], [address] [place] [address] Millicent Nieves MD LAB_[address]forming [address] [facility] Phon e Number HP CONVERSION ANION GAP (03/07/2013 1:53 PM WALL WASHER) athologist Signature ANION GAP 7 0 - 16 mEq/L HP CONVERSION Specimen Anatomical Collection Method Collection Time Receive d Time (Source) Location / / Volume Laterality 03/07/2013 1:53 PM 3 1:52 WALL WASHER PM WALL WASHER Narrative HP CONVERSION - 03/07/2013 2:28 PM WALL WASHER Performed at [facility], [address] [place] [address] Millicent Nieves MD LAB_1 Performing Organization Address [facility] Phon e Number HP CONVERSION Lipase (03/07/2013 1:53 PM WALL WASHER) athologist Signature Lipase 34 5 - 70 U/L HP CONVERSION Specimen Anatomical Collection Method Collection Time Receive d Time (Source) Location / / Volume Laterality 03/07/2013 1:53 PM 3 1:52 WALL WASHER PM WALL WASHER Narrative HP CONVERSION - 03/07/2013 2:28 PM WALL WASHER Performed at [facility], [address] [place] [address] Millicent Nieves MD LAB_1 Performing Organization Address [facility] Phon e Number HP CONVERSION Liver Panel(Hepatic Function Panel) (03/07/2013 1:53 PM WALL WASHER) Patholo gist Method Time Signature Alk Phos [...] Volume Laterality 03/07/2013 1:53 PM 3 1:52 WALL WASHER PM WALL WASHER Narrative HP CONVERSION - 03/07/2013 2:28 PM WALL WASHER Performed at [facility], [address] [place] [address] Millicent Nieves MD LAB_1 Performing Organization Address City/State/ZIP Code Phon e Number HP CONVERSION (ABNORMAL) Basic Metabolic Panel (03/07/2013 1:53 PM WALL WASHER) [facility] gist Method Time Signature Creatinine Serum 0.8 [...] Volume Laterality 03/07/2013 1:53 PM 3 1:52 WALL WASHER PM WALL WASHER Narrative HP CONVERSION - 03/07/2013 2:28 PM WALL WASHER Performed at [facility], [address] [place] [address] Millicent Nieves MD LAB_1 Performing Organization Address City/State/ZIP Code Phon e Number HP CONVERSION (ABNORMAL) Complete Blood Count W/Diff (03/07/2013 1:53 PM WALL WASHER) [facility] Method Time Signature White Blood Cell 11.6 [...] Volume Laterality 03/07/2013 1:53 PM 3 1:52 WALL WASHER PM WALL WASHER Narrative HP CONVERSION - 03/07/2013 2:25 PM WALL WASHER Performed at [facility], [address] [place] [address] Millicent Nieves MD LAB_1 Performing Organization Address City/[facility] Code Phon e Number HP CONVERSION Valproic Acid (Depakene) (03/07/2013 1:53 PM WALL WASHER) [facility] Method Time Signature Date Last Dose 03/06/2013 HP CONVERSION Valproic Acid Time Last Dose 10.00 HP CONVERSION Valproic Acid Valproic 98 50 - 100 HP CONVERSION Acid/Depakene ug/mL (Valp) Specimen Anatomical Collection Method Collection Time Receive d Time (Source) Location / / Volume Laterality 03/07/2013 1:53 PM 3 6:13 WALL WASHER PM WALL WASHER Transcriptions 03/07/2013 3:26 PM CSTNotes Recorded by Gina Ash MD on 03/07/2013 at 9:[address] Nieves review on 03/08/13. Millicent Nieves MD LAB_1 Performing Organization Address City/[facility]/ZIP Code Phon e Number HP CONVERSION Occult Blood, Exam 1 (03/07/2013 1:52 PM WALL WASHER) [facility] Method Time Signature Occult Blood, Negative Negative HP CONVERSION Stool #1 Date/Time #1 11,132,013 HP CONVERSION Specimen Anatomical Collection Method Collection Time Receive d Time (Source) Location / / Volume Laterality 03/07/2013 1:52 PM 3 1:57 WALL WASHER PM WALL WASHER Narrative HP CONVERSION - 03/07/2013 2:00 PM WALL [place] [address] Millicent Nieves MD LAB_1 Performing Organization Address [facility] Phon e Number HP CONVERSION URINE MICROSCOPIC (03/07/2013 1:37 PM WALL WASHER) athologist Signature Urine WBC 0-2 0 - 4 /HPF HP CONVERSION Urine RBC None seen 0 - 2 /HPF HP CONVERSION Specimen Anatomical Collection Method Collection Time Receive d Time (Source) Location / / Volume Laterality 03/07/2013 1:37 PM 3 1:55 WALL WASHER PM WALL WASHER Narrative HP CONVERSION - 03/07/2013 2:05 PM [place] [address] Millicent Nieves MD LAB_1 Performing Organization Address City/[facility] Phon e Number HP CONVERSION (ABNORMAL) URINALYSIS ROUTINE(MICRO IF POS) (03/07/2013 1:37 PM WALL WASHER) [facility] Method Time Signature Urine Type Urine:clean HP [...] U Specific 1.015 1.005 - HP CONVERSION [place] 1.030 Urobilinogen Negative Negative HP CONVERSION Urine Eu/dL Specimen Anatomical Collection Method Collection Time Receive d Time (Source) Location / / Volume Laterality Urine: 03/07/2013 1:37 PM 3 1:55 WALL WASHER PM WALL WASHER Narrative HP CONVERSION - 03/07/2013 2:05 PM WALL WASHER Performed at [address], [place] [address] Millicent Nieves MD LAB_1 Performing Organization Address City/[facility] Code Phon e Number HP CONVERSION BGS NO CHARGE (03/07/2013 1:24 PM WALL WASHER) athologist Signature Bedside Blood 158 mg/dL HP CONVERSION Glucose Test Comment: Performed at [facility], [address] , [place]. [address] Specimen Anatomical Collection Method Collection Time Receive d Time (Source) Location / / Volume Laterality 03/07/2013 1:24 PM 3 1:30 WALL WASHER PM WALL WASHER Millicent Nieves MD LAB_1 Performing Organization Address City/[facility] Code Phon e Number HP CONVERSION documented [...] he has not taken any meds today. WASHER documented in this encounter Care Teams Cage Tender Relationship Specialty Start Date End Date Gagandeep Hinojosa MD PCP - General 05/17/12 [facility]5 [place] [address] V[address] Zarate Psychiatrsamantha Psychiatry 03/22/12 documented as of this encounter
[2022-02-14] MEDS: FUROSEMIDE 10 MG/ML inj 40 MG IVP (15:04)
--- OUTSIDE RECORDS SUMMARY | 2022-02-14 15:04 | XMS_ITS | Encounter Summary ---
:1970 Author Organization [employer] Address [address] [place] [address] Care Team Providers Name Role Phone Gagandeep Hinojosa MD Primary Care Provider Reason for Visit Reason Comments Rectal Bleeding Encounter Details Date Type Department Care Team Description 09/20/2012 Nurse Triage [facility] Gagandeep Hinojosa, Rectal Bleeding [address] [place] [address] [phone] [place], [place] [address] (Wo rk) Social History Tobacco Use Types Packs/Day Years Used Date Smoking Tobacco: Never Assessed Sex Assigned at Date Recorded Not on file documented as of this encounter Nursing Notes Ruth Ann Nelson RN - 09/20/2012 8:57 PM CDT Protocol: RECTAL [id number] Negative: Taking Coumadin (warfarin), Pradaxa (dabigatran), or known bleeding disorder (e.g., thrombocytopenia) Negative: Severe dizziness (e.g., unable to stand, requires support to walk, feels like passing out now) Negative: [1] Constant abdominal pain AND [2] present > 2 hours Affirmative: Patient sounds very sick or weak to the triager Disposition of Go To ED Now (Or PCP Triage) suggested. Protocol: RECTAL [id number] Affirmative: Large mass protruding out of rectum [...] on filedocumented in this encounter Care Teams Goodyear Stitcher Relationship Specialty Start Date End Date Gagandeep Hinojosa MD PCP - General 05/17/12 [address] [facility] [place] [id number] Vane Zarate Psychiatrist Psychiatry 03/22/12 documented as of this encounter
--- OUTSIDE RECORDS SUMMARY | 2022-02-14 15:04 | XMS_ITS | Encounter Summary ---
:1970 Author Organization [facility] [employer] Address [address] [place] [address] Care Team Providers Name Role Phone Gagandeep Hinojosa MD Primary Care Provider Reason for Visit Reason Comments Post Hospital Discharge Follow Up Encounter Details Date Type Department Care Team Description 10/28/2012 Telephone [facility] Gagandeep Hinojosa, Post Hospital Discharge Medicine MD Follow Up [address] [facility] . [address] [place] [address] [place] [address] [phone] (Wo rk) Social History Tobacco Use Types [...] on filedocumented in this encounter Care Teams Hop Weigher Relationship Specialty Start Date End Date Gagandeep Hinojosa MD PCP - General 05/17/12 [address] [place], [place] [address] Vane Zarate Psychiatrist Psychiatry 03/22/12 documented as of this encounter
--- OUTSIDE RECORDS SUMMARY | 2022-02-14 15:04 | XMS_ITS | Encounter Summary ---
:1970 Author Organization [employer] Address [address] [place] [address] Care Team Providers Name Role Phone Gagandeep Hinojosa MD Primary Care Provider Reason for Visit Reason Comments Follow-up Encounter Details Date Type Department Care Team Description 11/07/2012 Office Visit Gagandeep Storm Type II or unspecified type diabetes mellitus without mention of complication, uncontrolled (Primary Dx); Romario Rubio MD Tobacco abuse; [address] [facility] Coronary atherosclerosis of unspecified type of vessel, stony river or graft; Ave. Ave Left shoulder pain [place] [address] [place] [phone] [address] Social History Tobacco Use Types Packs/Day Years [...] anotherwise unremarkable EKG. He was transferred to [facility], and underwent angiography, which showed no acute lesions. Nonetheless, he is now motivated to discontinue smoking, and he is on nicotine patch. His diabetes seems to be well-controlled, although he obtains his [id number] from an outside agency. Labs are pending. [...] Anemia, unspecified 05/02/2012 ??? Microalbuminuria 02/04/2012 ??? CA, old 09/16/2011 ??? History of PTCA 04/2011 [...] is negative, although he does have pain. Franklin's is negative. He has decreased internal rotation [...] type of vessel, stony river or graft ([facility]) Coronary atherosclerosis of unspecified type of vessel, stony river or graft Left shoulder pain Pain in joint, shoulder region documented in this encounter Care Teams Dredge Master Relationship Specialty Start Date End Date Gagandeep Hinojosa MD PCP - General 05/17/12 [facility] [place] [address] Vane Zarate Psychiatrsamantha Psychiatry 03/22/12 documented as of this encounter
--- OUTSIDE RECORDS SUMMARY | 2022-02-14 15:04 | XMS_ITS | Encounter Summary ---
:1970 Author Organization [facility] Address [address] [place] [address] Care Team Providers Name Role Phone Gagandeep Hinojosa MD Primary Care Provider Encounter Details Date Type Department Care Team Description 10/30/2012 Notes/Orders [facility] Estevan Isaacs MD Cardiology [address] [place] [place] [address] [phone] Social History Tobacco Use Types Packs/Day Years Used Date Smoking Tobacco: Never Assessed Sex Assigned at Date Recorded Not on file documented as of this encounter Plan of Treatment Not on filedocumented as of this encounter Visit Diagnoses Not on filedocumented in this encounter Care Teams Commercial Real Estate Manager Relationship Specialty Start Date End Date Gagandeep Hinojosa MD PCP - General 05/17/12 [address] [place] [address] Vane Zarate Psychiatrist Psychiatry 03/22/12 documented as of this encounter
--- OUTSIDE RECORDS SUMMARY | 2022-02-14 15:04 | XMS_ITS | Encounter Summary ---
:1970 Author Organization [employer] Address [address] [place] [address] Care Team Providers Name Role Phone Lilian Persaud Primary Care Provider Reason for Visit Reason Comments RESULTS, TEST Encounter Details Date Type Department Care Team Description 02/02/2012 Telephone [facility] Stevenson Greene MD RESULTS, TEST [address] [place] [address] [place], [place] [address] (Wo rk) Social History Tobacco Use Types [...] documented in this encounter Care Teams Software Asset Management Analyst Relationship Specialty Start Date End Date Lilian Persaud DO PCP - General 12/23/10 05/16/12 [address] [place] [address] documented as of this encounter
--- OUTSIDE RECORDS SUMMARY | 2022-02-14 15:04 | XMS_ITS | Encounter Summary ---
:1970 Author Organization [email or web address] Address [address] [place] [address] Care Team Providers Name Role Phone Gagandeep Hinojosa MD Primary Care Provider Reason for Visit Reason Comments Diabetes Encounter Details Date Type Department Care Team Description 05/24/2012 Telephone [facility] Judy Pittman RN Diabetes 1415 [facility] . [address] [facility] [place] [address] [place] [address] [phone] Social History Tobacco Use Types Packs/Day Years Used Date Smoking Tobacco: Never Assessed Sex Assigned at Date Recorded Not on file documented as of this encounter Nursing Notes Judy Pittman RN - 05/24/2012 2:15 PM CST RN Scrap Metal Processing Worker - Diabetes Phone Follow-Up Current diabetes medication [...] part-time job. Rustam has been over to [employer], they have set up with some temporary [...] on filedocumented in this encounter Care Teams Building And Grounds Supervisor Relationship Specialty Start Date End Date Gagandeep Hinojosa MD PCP - General 05/17/12 [facility] [place] [address] Vane Zarate Psychiatrist Psychiatry 03/22/12 documented as of this encounter
--- OUTSIDE RECORDS SUMMARY | 2022-02-14 15:04 | XMS_ITS | Encounter Summary ---
:1970 Author Organization [facility] Address [address] [place] [address] Care Team Providers Name Role Phone Lilian Persaud DO Primary Care Provider Encounter Details Date Type Department Care Team Description 05/08/2012 Notes/Orders Gagandeep Storm Type II or unspecified Medicine MD Joanne type diabetes mellitus [address] [facility] [address] [facility] without mention of [place] [address] [place] complication, [place] [phone] uncontrolled (Primary [phone] Dx) (Work) Social History Tobacco Use Types Packs/Day Years Used Date Smoking Tobacco: Never Assessed Sex Assigned at Date Recorded Not on file documented as of this encounter Plan of Treatment Not on filedocumented as of this encounter Visit Diagnoses Diagnosis Type II or unspecified type diabetes jasen litus without mention of complication, uncontrolled - Primary documented in this encounter Care Teams Helicopter Pilot Relationship Specialty Start Date End Date Lilian Persaud DO PCP - General 12/23/10 05/16/12 [address] [place] [address] Vane Zarate Psychiatrsamantha Psychiatry 03/22/12 documented as of this encounter
--- OUTSIDE RECORDS SUMMARY | 2022-02-14 15:04 | XMS_ITS | Encounter Summary ---
:1970 Author Organization [employer] Address [address] [place] [address] Care Team Providers Name Role Phone Lilain Persaud DO Primary Care Provider Encounter Details Date Type Department Care Team Description 02/01/2012 Lab Visit [place] Type II or unspecified type 14[address] [facility] . diabetes mellitus without [place] [address] mention of complication, uncontrolled Social History Tobacco [...] (ABNORMAL) Microalb/Creat Ratio (02/01/2012 12:05 PM CDT) [facility] Method Time Signature Microalbumin 93.0 mg/L [...] Homa Cori SAL LAB_1 Performing Organization Address [facility] Phon e Number HP CONVERSION documented in this encounter Visit Diagnoses Diagnosis Type II or unspecified type diabetes jasen litus without mention of complication, uncontrolled documented in this encounter Care Teams Cut Out Worker Relationship Specialty Start Date End Date Lilian Persaud DO PCP - General 12/23/10 05/16/12 [address] [place] [address] documented as of this encounter
--- OUTSIDE RECORDS SUMMARY | 2022-02-14 15:04 | XMS_ITS | Encounter Summary ---
:1970 Author Organization [email or web address] Address [address] [place] [address] Care Team Providers Name Role Phone Gagandeep Hinojosa MD Primary Care Provider Encounter Details Date Type Department Care Team Description 05/17/2012 Notes/Orders Vane Durbin, Encounter for long-term [address] [place] (current) use of other [place] [address] (Primary [phone] [address] Dx) [place] [address] Social History Tobacco Use Types Packs/Day Years Used Date Smoking Tobacco: Never Assessed Sex Assigned at Date Recorded Not on file documented as of this encounter Plan of Treatment Not on filedocumented as of this encounter Visit Diagnoses Diagnosis Encounter for long-term (current) use of other medications - Primary documented in this encounter Care Teams Craft Recruiter Relationship Specialty Start Date End Date Gagandeep Hinojosa MD PCP - General 05/17/12 [address] [place] [id number] Vane Zarate Psychiatrist Psychiatry 03/22/12 documented as of this encounter
--- OUTSIDE RECORDS SUMMARY | 2022-02-14 15:04 | XMS_ITS | Encounter Summary ---
:1970 Author Organization [facility] Address [address] [place] [address] Care Team Providers Name Role Phone Lilian Persaud DO Primary Care Provider Reason for Visit Reason Comments Diabetes Encounter Details Date Type Department Care Team Description 04/05/2012 Telephone [facility] Judy Pittman RN Diabetes 1415 [facility] . [address] [place] [address] [place] [address] [phone] Social History Tobacco Use Types Packs/Day Years Used Date Smoking Tobacco: Never Assessed Sex Assigned at Date Recorded Not on file documented as of this encounter Nursing Notes Lilian Persaud DO - 04/05/2012 4:56 PM CST agree with plan.Looks good! Judy Villegas RN - 04/05/2012 2:27 PM CST RN Informatics Spec - Diabetes Phone Follow-Up Current diabetes medication [...] on filedocumented in this encounter Care Teams Hose Suspender Cutter Relationship Specialty Start Date End Date Lilian Persaud DO PCP - General 12/23/10 05/16/12 [address] [place] [address] Vane Zarate Psychiatrsamantha Psychiatry 03/22/12 documented as of this encounter
--- OUTSIDE RECORDS SUMMARY | 2022-02-14 15:04 | XMS_ITS | Encounter Summary ---
:1970 Author Organization [employer] Address [address] [place] [address] Care Team Providers Name Role Phone Gagandeep Hinojosa MD Primary Care Provider Reason for Visit Reason Comments Refill Encounter Details Date Type Department Care Team Description 02/09/2013 Refill [facility] Gagandeep Hinojosa MD [facility] . [address] [place] [address] [place] [address] [phone] (Wo rk) Social History Tobacco Use Types Packs/Day Years Used Date Smoking Tobacco: Never Assessed Sex Assigned at Date Recorded Not on file documented as of this encounter Nursing Notes Gagandeep Hinojosa MD - 02/09/2013 5:59 PM CDT Done Denita Reyes RN - 02/09/2013 2:31 PM CDT DOES NOT MEET REQUIREMENTS FOR REFILL Reason: medication warning: High dose Last visit with PCP: qualifying visit on 11/07/12 Last Labs: 10/26/12 staff submarine warfare officer action: Please route to [facility] to schedule appointment.---lab appointment, due for A1C. Requested Prescriptions Pending Prescriptions Disp Refills ??? insulin NPH (NOVOLIN N) 100 unit/mL Susp [Pharmacy Med Name: RELION NOVOLIN N INJ] 40 mL 0 Sig: Inject 80 Units subcutaneously 2 times daily (before meals). BREAKFAST AND DINNER ??? insulin regular (NOVOLIN R) 100 unit/mL injection [Pharmacy Med Name: RELION NOVOLIN R INJ] 40 mL 0 Sig: Inject 76 Units subcutaneously 2 times daily (before meals). BREAKFAST AND DINNER documented in this encounter Plan of Treatment Not on filedocumented as of this encounter Visit Diagnoses Diagnosis Type II or unspecified type diabetes jasen litus without mention of complication, uncontrolled - Primary documented in this encounter Care Teams Interior Painter Relationship Specialty Start Date End Date Gagandeep Hinojosa MD PCP - General 05/17/12 [facility] [place] [address] [address] Zarate Psychiatrist Psychiatry 03/22/12 documented as of this encounter
--- OUTSIDE RECORDS SUMMARY | 2022-02-14 15:04 | XMS_ITS | Encounter Summary ---
:1970 Author Organization [facility] Address [address], [place] [address] Care Team Providers Name Role Phone Gagandeep Hinojosa MD Primary Care Provider Reason for Visit Reason Comments Pharmacy Encounter Details Date Type Department Care Team Description 11/14/2012 Refill [facility] Gagandeep Hinojosa MD Pharmacy [address] [facility] . [address] [facility] [place] [address] [place] [address] [phone] (Wo rk) Social History Tobacco Use Types [...] 2 days for RX to be approved. [facility] calling where pt is waiting to get [...] requesting rx Pharmacy Name & Phone #: [facility] Pharmacy Street or City: [place] Drug Name: 1ml 30 gu 8 mm short needle. Strength: unk Dose/Route/Freq: unk *ECODE documented in this encounter Plan of Treatment Not on filedocumented as of this encounter Visit Diagnoses Not on filedocumented in this encounter Care Teams Supervisor Cigar Making Hand Relationship Specialty Start Date End Date Gagandeep Hinojosa MD PCP - General 05/17/12 14[address] [facility] [place] [address] V[address] Zarate Psychiatrist Psychiatry 03/22/12 documented as of this encounter
--- OUTSIDE RECORDS SUMMARY | 2022-02-14 15:04 | XMS_ITS | Encounter Summary ---
:1970 Author Organization [employer] Address [address] [place] [address] Care Team Providers Name Role Phone Lilian Persaud DO Primary Care Provider Reason for Visit Reason Comments Care Coordination Encounter Details Date Type Department Care Team Description 03/09/2012 [facility]phone [facility]ian Persaud, Care Coordination [address] [facility] . [address] [place] [address] [place] [address] [phone] (Wo rk) Social History Tobacco Use Types Packs/Day Years Used Date Smoking Tobacco: Never Assessed Sex Assigned at Date Recorded Not on file documented as of this encounter Nursing Notes Judy Pittman RN - 03/14/2012 1:12 PM CST Return phone call from [place]. [place] states he and his have recently returned from [place] and he is interested in care coordination. Rustam notes his BG has been elevated because he has been forced to ration his insulin due to financial constraints. Rustam knows his last A1c was high at 10.6. Rustam is currently using the generic Relion brand from [employer], but has fallen into the Medicare doughnut hole and cannot afford his insulin. Rustam is also interested in working on his diet. I scheduled an appt for care coordination on 03/22/12. I provided my contact information. Judy Pittman RN - 03/09/2012 10:06 AM CST I left a message for Timur asking for a return call with an update on his status. Please transferto [phone]. documented in this encounter Plan of Treatment Not on filedocumented as of this encounter Visit Diagnoses Not on filedocumented in this encounter Care Teams Institution Director Relationship Specialty Start Date End Date Lilian Persaud DO PCP - General 12/23/10 05/16/12 [facility] [place] [id number] documented as of this encounter
--- OUTSIDE RECORDS SUMMARY | 2022-02-14 15:04 | XMS_ITS | Encounter Summary ---
:1970 Author Organization [employer] Address [address] [place] [address] Care Team Providers Name Role Phone Gagandeep Hinojosa MD Primary Care Provider Reason for Visit Reason Comments Care Coordination Encounter Details Date Type Department Care Team Description 02/12/2013 Telephone [place] [facility] Judy Pittman RN Care Coordination 1415 [facility] . [address] [place] [address] [place] [address] [phone] Social History Tobacco Use Types Packs/Day Years [...] requesting a return call. Please transfer to [phone]. Checking to make sure Rustam received his insulin at [facility] in [place] and there weren't any problems with payment. udy Weber RN - 02/12/2013 3:43 PM CDT Managed Care Analyst - Phone Call Reason for call: Medication assistance Discussion/actions: Lev is returning my call, stating that the [employer] [facility] will be able to help Rustam with the cost of his insulin for this month. Unfortunately, [facility] does not work with [facility] and therefore will need the prescription transferred to [facility] in [place] to arrange payment. I spoke with the pharmacist at [facility] and provided a verbal order for Novolin N and Novolin R per Dr Hinojosa's orders on 02/09/13. I spoke with pharmacist at [facility] and discontinued the refill senton 02/09/13. 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 I reminded Rustam thathe is due to have his A1c checked before the end of this month and will need to have this completed before further refills. Shared plan: I provided my contact information for Rustam to call and schedule his A1c. Judy Pittman RN - 02/12/2013 2:11 PM CDT Managed Care Analyst - Phone Call Reason for call: Medication [...] on filedocumented in this encounter Care Teams Heating Systems Installer Relationship Specialty Start Date End Date Gagandeep Hinojosa MD PCP - General 05/17/12 [address] [facility] [place] [address] Vane Zarate Psychiatrist Psychiatry 03/22/12 documented as of this encounter
--- OUTSIDE RECORDS SUMMARY | 2022-02-14 15:04 | XMS_ITS | Encounter Summary ---
:1970 Author Organization [employer] Address [address] [place] [address] Care Team Providers Name Role Phone Gagandeep Hinojosa MD Primary Care Provider Reason for Visit Reason Comments Treatment Plan Encounter Details Date Type Department Care Team Description 11/03/2012 Nurse Triage [facility] Gagandeep Hinojosa, Treatment Plan [address] [place] [address] 14[address] [facility] [phone] [place], [place] [address] (Wo rk) Social History Tobacco Use Types Packs/Day Years Used Date Smoking Tobacco: Never Assessed Sex Assigned at Date Recorded Not on file documented as of this encounter Nursing Notes Melanie Smith RN - 11/03/2012 7:32 AM CDT Protocol: SHOULDER [id number] Affirmative: [1] MODERATE pain (e.g. interferes with [...] on filedocumented in this encounter Care Teams Cell Assembly Pinner Relationship Specialty Start Date End Date Gagandeep Hinojosa MD PCP - General 05/17/[address] [place] [address] [place] [address] Vane Zarate Psychiatrist Psychiatry 03/22/12 documented as of this encounter
--- OUTSIDE RECORDS SUMMARY | 2022-02-14 15:04 | XMS_ITS | Encounter Summary ---
:1970 Author Organization [employer] Address [address] [place] [address] Care Team Providers Name Role Phone CoriLilian li Homa SAL Primary Care Provider Reason for Visit Reason Comments RESULTS, TEST Encounter Details Date Type Department Care Team Description 04/07/2012 Telephone [facility] Gagandeep Hinojosa MD RESULTS, TEST 1415 [facility] . [address] [place] [address] [place] [address] [phone] (Wo rk) Social History Tobacco Use Types [...] forwarded to scheduling dept to contact pt FACTURING QUALITY INSPECTOR Gagandeep Hinojosa MD - 04/07/2012 2:18 PM CST Call pt. U/S showeed no lesions. Would refer to general surgery. Refereral done FACTURING QUALITY INSPECTOR Denita Reyes, RN - 04/07/2012 2:13 PM CST US results in [facility]. To Dr. Hinojosa for interpretation. FACTURING QUALITY INSPECTOR Ale Fountain - 04/07/2012 2:06 PM CST Patient states had a ultrasound done on 04-06-12 and they did not find anything and asking if he should see doctor again for more tests. FACTURING QUALITY INSPECTOR documented in this encounter Plan of Treatment Not on filedocumented as of this encounter Visit Diagnoses Diagnosis Soft tissue mass - Primary Disorders of soft tissue, unspecified documented in this encounter Care Teams Pattern Storage Clerk Relationship Specialty Start Date End Date Lilian Persaud DO PCP - General 12/23/10 05/16/12 [address] [place] [address] V[address] Zarate Psychiatrsamantha Psychiatry 03/22/12 documented as of this encounter
--- OUTSIDE RECORDS SUMMARY | 2022-02-14 15:04 | XMS_ITS | Encounter Summary ---
:1970 Author Organization [employer] Address [address], [place] [address] Care Team Providers Name Role Phone CoriLilian li Primary Care Provider Reason for Visit Reason Comments Care Coordination Encounter Details Date Type Department Care Team Description 04/03/2012 Telephone [facility] Care Dyana Valdez, Care Coordination Management PIPE ROLLER, WATERPROOF MATERIAL FOLDER [address] [facility]. [address] [place] [address] [phone] Social History Tobacco Use Types Packs/Day Years Used Date Smoking Tobacco: Never Assessed Sex Assigned at Date Recorded Not on file documented as of this encounter Nursing Notes Dyana Valdez - 04/03/2012 11:46 AM CST 04/03/12 Reached out to pt and offered Nurse Marine Underwriter svcs, as well as a home visit. Pt declines participation at this time stating he is currently with the hospice care consultant in clinic to manage his Diabetes. Provided direct # for future questions/needs/changes and advised him svcs are at no charge, feel freeto contact in the future if interested - agrees to do so. Dyana Valdez RN Nurse Kaiako Kura [place] [phone] (O) [phone] (C) [facility] documented in this encounter Plan of Treatment Not on filedocumented as of this encounter Visit Diagnoses Not on filedocumented in this encounter Care Teams Film Sound Coordinator Relationship Specialty Start Date End Date Lilian Persaud DO PCP - General 12/23/10 05/16/12 [address] [place] [address] [address] Zarate Psychiatrsamantha Psychiatry 03/22/12 documented as of this encounter
--- OUTSIDE RECORDS SUMMARY | 2022-02-14 15:04 | XMS_ITS | Encounter Summary ---
:1970 Author Organization [employer] Address [address], [place] [address] Care Team Providers Name Role Phone Gagandeep Hinojosa MD Primary Care Provider Encounter Details Date Type Department Care Team Description 10/25/2012 - Hospital Encounter [facility] 3S Monica Valle, MBBS [address] [place], [place] [address] ACS (acute coronary 10/27/2012 Med-Coronary Zoie Khanna, DO [address], [place] [id number] syndrome) (Primary Outpatient 3S [facility] Dx) [address] [place], [place] [address] Social History Tobacco Use Types Packs/Day Years [...] Filed: 11/01/121924 Note Time: 10/27/121657 Status: Signed Vice President Investor Relations: REINA Wharton (Physician) NAME: SHARLENE KRISHNAMURTHY MR#: [id number] CSN: [id number] AUTHENTICATING CLINICIAN: REINA Cool CONFIRM #: [id number] LOC: 1 HOSPITAL DISCHARGE SUMMARY DATE OF [...] at the bedside. [place]:BREANNA C: CONFIRM #: [id number] documented in this encounter Medications at Time [...] this encounter Progress Notes Vanessa Yee, HORACIO, MANAGER STAR - 10/27/2012 4:53 PM CDT DISCHARGE O: [...] Direct 115 06/04/2011 1302 Patient Interview/Diet History: [employer]/peanut butter for breakfast, sandwich or burger for [...] maybe should resume resperidone, too. Stop smoking. --[facility] Fabian Gutierrez MD - 10/27/2012 10:26 [...] ADMIT O: Admitted patient via cart from [facility] to bed # 3STH/3STH-05. D: Patient [...] no imaging then. 2. [facility] [place] 3.5 x 16 bare metal stent RCA Apr 2011 Bounce-back angio Apr 2011--stent patent, mid-PDA disease, modest LAD disease, LVEF 60 Normal nuc scan OCT 2011. [facility] CT cor angio showed 40-70% mid LAD [...] Stop smoking. 3. He could go to --[facility] Estevan Taylor MD - 10/26/2012 11:13 AM CDT Consults signed by Estevan Taylor MD at 10/26/12 5503 Author: Estevan Taylor MD Service: (none) Author Type: Physician Filed: 10/26/12 7348 Note Time: 10/26/12 1256 Status: Signed Vice President Investor Relations: Estevan Taylor MD (Physician) NAME: SHARLENE KRISHNAMURTHY MR#: [id number] CSN: [id number] AUTHENTICATING CLINICIAN: Estevan Taylor MD CONFIRM #: [id number] LOC: 1 HOSPITAL CONSULTATION DATE OF CONSULTATION: [...] stress nuclear scan. He was hospitalized in [place] in early September with chest pain and diabetes out of control. He had stopped taking his insulin because he could not afford it. He had no cardiac findings and was discharged without further cardiac evaluation, although plans were made for an outpatient stress echo. Yesterday, he again presented to the [place] [facility] with chest pain. The patient [...] then went to the emergency room in [place]. He was still having pain when he [...] descending plaque by CT angiogram yesterday at [place]. 3. Bipolar disorder, disabled because of this. 4. Still smoking. 5. Diabetes on insulin. Poor control. 6. Hypertension. 7. Hyperlipidemia. 8. Obesity. 9. Finances are problem. Sometimes he cannot afford medicines. Coverage is okay for now, he says. SUGGESTION: 1. Coronary angiogram. I am guessing this will not show anything of significance. 2. Stop smoking. 3. He could be transferred to [facility]. CC: GAGANDEEP HINOJOSA MD [address] [facility] [place] [address] [facility]:BREANNA C: CONFIRM #: [id number] documented in this encounter OR Notes H&P - Zoie Khanna, - 10/26/2012 1:54 AM CDT HISTORY AND PHYSICAL Date of service 10/25/2012 Primary provider: Gagandeep Hinojosa HISTORY OF PRESENT ILLNESS: Chief complaint chest pain Medical records reviewed Pt is a 42 year old male with h/o CAD s/p BMS to the RCA 04/2011, uncontrolled diabetes mellitus and bipolar d/o He presented to [facility] today complaining of sudden onset of left [...] diabetes Prior to admission medications reviewed in [facility] - see EMR for details. Review [...] Code Status - full Zoie Khanna DO [facility] Hospitalist documented in this encounter Miscellaneous [...] Given Vanessa Yee RN - - 10/27/12 0753 charted under timed dose Other 0.9% sodium [...] had heparin infusing since admission; started at [place] running at 15.2 - heparin (porcine) 1,000 [...] Intravenous - 10/25/12 2332 pt transfer from [facility] with nitro infusing. Verified rate/dose/concentration. - 10/25/12 [...] Zoie Khanna DO LAB_1 Performing Organization Address City/[facility] Phon e Number HP CONVERSION BEDSIDE GLUCOSE MONITOR (10/27/2012 11:26 AM CDT) P athologist Signature Bedside Blood 182 mg/dL HP CONVERSION Glucose Test Specimen Anatomical Collection Method Collection Time Receive d Time (Source) Location / / Volume Laterality 10/27/2012 11:26 11/10/2012 AM CDT 12:30 PM CDT Zoie Khanna DO LAB_1 Performing Organization Address [facility] Phon e Number HP CONVERSION Cardiac Cath Procedure (10/27/2012 8:39 AM CDT) Specimen (Source) Anatomical Collection Method Collection Time Re ceived Time Location / / Volume Laterality 10/27/2012 8:39 AM CDT Narrative PN CENTRICITY - 10/27/2012 8:39 AM CDT [address] [place] [address] SHARLENE T TELLY ?? [id number] Cardiovascular Catheterization Comprehen sive Report : 1970 Age: 42 years Gender: Male Study date: 10/27/2012 Test time: 10:03 - 10:25 Fluoro time: 8.5 min PPH Staff: ??Wendy Cali RN Diagnostic Public Health Internship: ??FABIAN GUTIERREZ MD Diesel Truck Crane Operator: ??Brandon Ta Scrub: ??Inderijt Larson RN Monitor: ??Екатерина Khalil CVT X-ray Tech: ??Charles Washington RT Ordering Physician: ??Franck TAYLOR History and indications INDICATIONS ?? -- ??Angina/[place]: atypical chest pain. -- ??Coronary artery disease. Prior righ t coronary artery stent placement. Procedures PROCEDURES PERFORMED: -- ??Right coronary angiography. -- ??Left coronary angiography. NARRATIVE: The risks and alternatives of the procedures and conscious sedation were explained to the patient and informed consent was obtained. The patie nt was brought to the hot plate plywood press laborer and placed on the table. Th e [...] PN CARDIAC CATH ORDERABLES Performing Organization Address [facility] Phon e Number PN CENTRICITY BEDSIDE GLUCOSE MONITOR (10/27/2012 7:52 AM CDT) athologist Signature Bedside Blood 223 mg/dL HP CONVERSION Glucose Test Specimen Anatomical Collection Method Collection Time Receive d Time (Source) Location / / Volume Laterality 10/27/2012 7:52 AM 3 8:05 CDT AM CDT Monica CUNNINGHAMBS LAB_1 Performing Organization Address [facility] Phon e Number HP CONVERSION Potassium (10/27/2012 6:12 AM CDT) athologist Signature Potassium 4.2 3.5 - 5.2 HP CONVERSION mEq/L Specimen Anatomical Collection Method Collection Time Receive d Time (Source) Location / / Volume Laterality 10/27/2012 6:12 AM 3 6:21 CDT AM CDT Zoie Cheney Jey SAL LAB_1 Performing Organization Address [facility] Phon e Number HP CONVERSION (ABNORMAL) APTT (Activated Partial Thromboplastin Time) (10/27/2012 6:11 AM CDT) [facility] gist Method Time Signature Partial 58.5 (H) 25.0 - HP CONVERSION Thromboplastin 38.0 sec Time Specimen Anatomical Collection Method Collection Time Receive d Time (Source) Location / / Volume Laterality 10/27/2012 6:11 AM 3 6:21 CDT AM CDT Zoie Khanna DO LAB_1 Performing Organization Address [facility] Phon e Number HP CONVERSION BEDSIDE GLUCOSE MONITOR (10/26/2012 9:30 PM CDT) athologist Signature Bedside Blood 189 mg/dL HP CONVERSION Glucose Test Specimen Anatomical Collection Method Collection Time Receive d Time (Source) Location / / Volume Laterality 10/26/2012 9:30 PM 3 9:40 CDT PM CDT Monica CUNNINGHAM LAB_1 Performing Organization Address [facility] Phon e Number HP CONVERSION BEDSIDE GLUCOSE MONITOR (10/26/2012 5:03 PM CDT) P athologist Signature Bedside Blood 181 mg/dL HP CONVERSION Glucose Test Specimen Anatomical Collection Method Collection Time Receive d Time (Source) Location / / Volume Laterality 10/26/2012 5:03 PM 3 5:05 CDT PM CDT Monica Valle [facility] LAB_1 Performing Organization Address [facility] Phon e Number HP CONVERSION BEDSIDE GLUCOSE MONITOR (10/26/2012 11:52 AM CDT) P athologist Signature Bedside Blood 149 mg/dL HP CONVERSION Glucose Test Specimen Anatomical Collection Method Collection Time Receive d Time (Source) Location / / Volume Laterality 10/26/2012 11:52 10/26/2012 AM CDT 12:00 PM CDT Zoie Khanna LAB_1 Performing Organization Address [facility] Phon e Number HP CONVERSION ECG 12 Lead Inpatient (10/26/2012 10:17 AM CDT) P athologist Signature Ventricular Rate 79 BPM MUSE GHP Atrial Rate 79 BPM MUSE GHP P-R Interval 148 ms MUSE GHP QRS Duration 94 ms MUSE GHP QT 380 ms MUSE GHP QTc 435 ms MUSE GHP P [place] 40 degrees MUSE GHP R [place] 11 degrees MUSE GHP T [place] 27 degrees MUSE GHP Specimen (Source) Anatomical Collection Method Collection Time Re ceived Time Location / / Volume Laterality 10/26/2012 10:17 AM CDT Narrative MUSE GHP - 07/29/2019 1:56 PM CDT Sinus rhythm Normal ECG When compared with ECG of 25-OCT-2012 19 :36, No significant change was found Confirmed by HAL HARGROVE ([id number]), desk editor PEPPER HERNANDEZ ([id number]) on 10/26/2012 2:20:40 PM Procedure Note Epic, Internal Processing - 08/01/2019Fo rmatting of this note might be different from the original. Sinus rhythm Normal ECG When compared with ECG of 25-OCT-2012 19 :36, No significant change was found Confirmed by HAL HARGROVE ([id number]), desk editor PEPPER HERNANDEZ ([id number]) on 10/26/2012 2:20:40 PM Estevan Taylor MD PN ECG ORDERABLES Performing Organization Address City[facility] Code Phon e Number MUSE GHP [address] [place] [address] BEDSIDE GLUCOSE MONITOR (10/26/2012 8:13 AM CDT) athologist Signature Bedside Blood 251 mg/dL HP CONVERSION Glucose Test Specimen Anatomical Collection Method Collection Time Receive d Time (Source) Location / / Volume Laterality 10/26/2012 8:13 AM 3 8:45 CDT AM CDT Monica Valle MBBS LAB_1 Performing Organization Address [facility] Code Phon e Number HP CONVERSION (ABNORMAL) APTT (Activated Partial Thromboplastin Time) (10/26/2012 7:03 AM CDT) [facility] gist Method Time Signature Partial 76.4 (H) 25.0 - HP CONVERSION Thromboplastin 38.0 sec Time Specimen Anatomical Collection Method Collection Time Receive d Time (Source) Location / / Volume Laterality 10/26/2012 7:03 AM 3 7:46 CDT AM CDT Zoie Khanna DO LAB_1 Performing Organization Address [facility] Code Phon e Number HP CONVERSION Potassium (10/26/2012 7:03 AM CDT) athologist Signature Potassium 4.5 3.5 - 5.2 HP CONVERSION mEq/L Specimen Anatomical Collection Method Collection Time Receive d Time (Source) Location / / Volume Laterality 10/26/2012 7:03 AM 3 7:46 CDT AM CDT Zoie Khanna DO LAB_1 Performing Organization Address [facility] Phon e Number HP CONVERSION (ABNORMAL) Hgb A1c (10/26/2012 7:03 AM CDT) athologist Signature HGB A1C 11.1 (H) 0.0 - 6.0 % HP CONVERSION Specimen Anatomical Collection Method Collection Time Receive d Time (Source) Location / / Volume Laterality 10/26/2012 7:03 AM 3 7:46 CDT AM CDT Zoie Khanna DO LAB_1 Performing Organization Address [facility] Phon e Number HP CONVERSION LABS CARD PROF TROPI 6 HRS (10/26/2012 2:07 AM CDT) athologist Signature Tropi At 6 Hrs <0.05 0.00 - HP CONVERSION 0.04 ng/mL Specimen Anatomical Collection Method Collection Time Receive d Time (Source) Location / / Volume Laterality 10/26/2012 2:07 AM 3 2:10 CDT AM CDT Zoie Khanna DO LAB_1 Performing Organization Address [facility] Code Phon e Number HP CONVERSION (ABNORMAL) APTT (Activated Partial Thromboplastin Time) (10/25/2012 10:11 PM CDT) [facility] gist Method Time Signature Partial 64.3 (H) 25.0 - HP CONVERSION Thromboplastin 38.0 sec Time Specimen Anatomical Collection Method Collection Time Receive d Time (Source) Location / / Volume Laterality 10/25/2012 10:11 10/25/2012 PM CDT 10:14 PM CDT Zoie Khanna DO LAB_1 Performing Organization Address [facility] Phon e Number HP CONVERSION Creatinine [...] Zoie Khanna DO LAB_1 Performing Organization Address [facility] [...] Zoie Khanna DO LAB_1 Performing Organization Address [facility] Phon e Number HP CONVERSION BEDSIDE GLUCOSE MONITOR (10/25/2012 9:38 PM CDT) P athologist Signature Bedside Blood 190 mg/dL HP CONVERSION Glucose Test Specimen Anatomical Collection Method Collection Time Receive d Time (Source) Location / / Volume Laterality 10/25/2012 9:38 PM 3 9:40 CDT PM CDT Zoie Khanna DO LAB_1 Performing Organization Address [facility] Phon e Number HP CONVERSION INR/Protime (10/25/2012 [...] valves in the aortic position , acute [place], valvular heart disease and atrial fibril lation. [...] Zoie Khanna DO LAB_1 Performing Organization Address [facility] Code Phon e Number HP CONVERSION (ABNORMAL) Differential (10/25/2012 8:07 PM CDT) [facility] Method Time Signature Absolute 3.8 1.8 [...] Zoie Khanna DO LAB_1 Performing Organization Address [facility] Phon e Number HP CONVERSION (ABNORMAL) Complete Blood Count W/Diff (10/25/2012 8:07 PM CDT) [facility] Method Time Signature White Blood Cell [...] Zoie Khanna DO LAB_1 Performing Organization Address [facility] Phon e Number HP CONVERSION CARDIAC PROFILE [...] GHP QTc 441 ms MUSE GHP P [place] 32 degrees MUSE GHP R [place] 19 degrees MUSE GHP T [place] 24 degrees MUSE GHP Specimen (Source) Anatomical Collection Method Collection Time Re ceived Time Location / / Volume Laterality 10/25/2012 7:36 PM CDT Narrative MUSE GHP - 07/29/2019 1:57 PM CDT Sinus rhythm Normal ECG When compared with ECG of 14-MAY-2011 12 :48, Criteria for Inferior infarct are no william reny Present Confirmed by HEMA JARA ([id number]), raymond or PEPPER HERNANDEZ ([id number]) on 10/26/2012 10:54:40 AM Procedure Note Epic, Internal Processing - 08/01/2019Fo rmatting of this note might be different from the original. Sinus rhythm Normal ECG When compared with ECG of 14-MAY-2011 12 :48, Criteria for Inferior infarct are no william reny Present Confirmed by HEMA JARA ([id number]), raymond or PEPPER HERNANDEZ ([id number]) on 10/26/2012 10:54:40 AM Zoie Khanna DO PN ECG ORDERABLES Performing Organization Address City/State/ZIP Code Phon e Number MUSE GHP [address] [place] [address] MRSA Culture (10/25/2012 6:13 PM CDT) Component [...] Visit Diagnoses Diagnosis ACS (acute coronary syndrome) ([facility]) - Pr imary Intermediate coronary syndrome Plan [...] has to do it for himself. Reports Temple marita, no churchattendance. Spiritual care will remain available. Note completed by: Dianne Paris, [id number], pager [phone] End of Report documented in this encounter Care Teams Assembly Associate Relationship Specialty Start Date End Date Gagandeep Hinojosa MD PCP - General 05/17/12 [address] [place] [address] Vane Zarate Psychiatrist Psychiatry 03/22/12 documented as of this encounter
--- OUTSIDE RECORDS SUMMARY | 2022-02-14 15:04 | XMS_ITS | Encounter Summary ---
:1970 Author Organization [employer] Address [address] [place] [address] Care Team Providers Name Role Phone Lilian Persaud DO Primary Care Provider Reason for Visit Reason Comments Questions Encounter Details Date Type Department Care Team Description 03/14/2012 Telephone [facility] Lilian Persaud, DO Questions [address] [facility] . [address] [place] [address] [place] [address] [phone] (Wo rk) Social History Tobacco Use Types [...] with plan of care and follow up. MOBILE INSURANCE CLAIM EXAMINER Brielle Meza RN - 03/14/2012 1:45 PM CST Patient calling to ask if his visit with his Faceter on 03/22/12 qualifies as a visit with Dr. Persaud, as he is due for a follow-up visit with her. His financial situation is very difficult at this time. He stated his sugars are coming down slowly since his labs were done 02/01/12. Told patient either myself or his Faceter would return a call to him regarding this issue. Patient comfortable with this plan. MOBILE INSURANCE CLAIM EXAMINER Freya Mukherjee - 03/14/2012 11:58 AM CST pt states he received letter from Dr. Persaud. pt is wondering if Dr. Persaud would like to see him to follow up. Please call to discuss. MOBILE INSURANCE CLAIM EXAMINER documented in this encounter Plan of Treatment Not on filedocumented as of this encounter Visit Diagnoses Not on filedocumented in this encounter Care Teams Elastic Assembler Relationship Specialty Start Date End Date Lilian Persaud DO PCP - General 12/23/10 05/16/12 [address] [id number] documented as of this encounter
--- OUTSIDE RECORDS SUMMARY | 2022-02-14 15:04 | XMS_ITS | Encounter Summary ---
:1970 Author Organization [employer] Address [address] [place] [address] Care Team Providers Name Role Phone Lilian Persaud DO Primary Care Provider Encounter Details Date Type Department Care Team Description 04/07/2012 Notes/Orders [facility] Herlinda De Santiago, ROBYN Mass on back [address] [facility] [place] [address] Social History Tobacco Use Types Packs/Day Years [...] Neck, Head Other Impressions 04/06/2012 12:00 AM PARKING ASSISTANT IMPRESSION: ??No sonographic abnormality identified. ??The findings were discussed with the patient at the t sadia of the examination. Narrative 04/06/2012 12:00 AM PARKING ASSISTANT Imaging performed at [facility]: ULTRASOUND OF THE TWO PALPABLE [...] different from the original. Imaging performed at [facility]: ULTRASOUND OF THE TWO PALPABLE [...] sadia of the examination. Gagandeep Hinojosa MD [facility] documented in this encounter Visit Diagnoses Diagnosis Mass on back Localized superficial swelling, mass, or lump documented in this encounter Care Teams Cyber Security Engineer Relationship Specialty Start Date End Date Lilian Persaud DO PCP - General 12/23/10 05/16/12 [address] [place] [address] Vane Zarate Psychiatrist Psychiatry 03/22/12 documented as of this encounter
--- OUTSIDE RECORDS SUMMARY | 2022-02-14 15:04 | XMS_ITS | Encounter Summary ---
:1970 Author Organization [facility] Address [address] [address] Care Team Providers Name Role Phone Gagandeep Hinojosa MD Primary Care Provider Reason for Visit Reason Comments Refill Encounter Details Date Type Department Care Team Description 07/24/2012 [facility] [place] [facility] Franck Greene MD [facility] [address] [place] [address] [address] [place] [address] [place] [address] (Wo rk) Social History Tobacco [...] on filedocumented in this encounter Care Teams Physicist Acoustics Relationship Specialty Start Date End Date Gagandeep Hinojosa MD PCP - General 05/17/12 [address] [place] [address] Vane Zarate Psychiatrist Psychiatry 03/22/12 documented as of this encounter
--- OUTSIDE RECORDS SUMMARY | 2022-02-14 15:04 | XMS_ITS | Encounter Summary ---
:1970 Author Organization [facility] Address [address] [place] [address] Care Team Providers Name Role Phone Gagandeep Hinojosa MD Primary Care Provider Encounter Details Date Type Department Care Team Description 05/17/2012 Lab Visit [facility] Laboratory Type II or unspecified type [address] [facility] . diabetes mellitus without [place] [address] mention of complication, uncontrolled Social History Tobacco Use Types Packs/Day Years Used Date Smoking Tobacco: Never Assessed Sex Assigned at Date Recorded Not on file documented as of this encounter Plan of Treatment Not on filedocumented as of this encounter Procedures Procedure Name Priority Date/Time Associated Diagnosis Comme nts HGB A1C Routine 05/17/2012 10:35 AM Type II or unspecifie d Results for this FRONT OFFICE SECRETARY type diabetes mellitus proce dure are in without mention of the resul ts complication, section. uncontrolled ([facility]) documented in this encounter Results (ABNORMAL) Hgb A1c (05/17/2012 10:35 AM FRONT OFFICE SECRETARY) P athologist Signature HGB A1C 10.2 (H) 0.0 - 6.0 % HP CONVERSION Specimen Anatomical Collection Method Collection Time Receive d Time (Source) Location / / Volume Laterality 05/17/2012 10:35 05/17/2012 4:14 AM FRONT OFFICE SECRETARY PM FRONT OFFICE SECRETARY Gagandeep Hinojosa MD LAB_1 Performing Organization Address City/State/ZIP Code Phon e Number HP CONVERSION documented in this encounter Visit Diagnoses Diagnosis Type II or unspecified type diabetes jasen litus without mention of complication, uncontrolled documented in this encounter Care Teams Machine Strap Buckler Relationship Specialty Start Date End Date Gagandeep Hinojosa MD PCP - General 05/17/12 [address] [facility] [place] [address] Vane Zarate Psychiatrist Psychiatry 03/22/12 documented as of this encounter
--- OUTSIDE RECORDS SUMMARY | 2022-02-14 15:04 | XMS_ITS | Encounter Summary ---
:1970 Author Organization [employer] Address [address] [place] [address] Care Team Providers Name Role Phone Lilian Persaud DO Primary Care Provider Reason for Visit Reason Comments [facility] Enrollment Encounter Details Date Type Department Care Team Description 03/22/2012 Nursing Visit Corby Reynolds Bipolar I d isorder, most recent episode (or current) unspecified; Medicine Type II or unspecified type diabetes mellitus without mention of complication, uncontrolled; [address] S/P angioplasty [place] stent [place] [address] Social History Tobacco Use Types Packs/Day Years Used Date Smoking Tobacco: Never Assessed Sex Assigned at Date Recorded Not on file documented as of this encounter Progress Notes Judy Pittman RN - 03/22/2012 4:28 PM CST Care Coordination Visit Pt: Timur Krishnamurthy Referred by: Lilian Persaud DO Reason for referral: [facility] Enrollment and Care Coordination Family/social [...] costs now that he has reached the [facility].Rustam has been checking his BG tid since [...] his diabetes/heart health because of his previous CT and subsequent stent placement. Rustam currently sees a psychiatrist for his medication related to dx Bipolar Disorder. Rustam states that the Depakote and Risperdal both increase his BG. Referrals/recommended resources: I will check into medication resources including the [facility] and[facility] Hernandez. Patient barrier(s) to learning identified: Finance and Emotional. SHARED PLAN: Rustam agreed to [facility] Enrollment and signed the paperwork. Rustam also completed the verbal disclosure form for [facility] and En[facility] Nortis so I [...] Shopping Guide, Healthy Snacks, and My Food Collection Coordinator. I reviewed how managing CHO intake and [...] status documented in this encounter Care Teams Rib Chopper Relationship Specialty Start Date End Date Lilian Persaud DO PCP - General 12/23/10 05/16/12 [address] [place] [address] Vane Zarate Psychiatrsamantha Psychiatry 03/22/12 documented as of this encounter
--- OUTSIDE RECORDS SUMMARY | 2022-02-14 15:04 | XMS_ITS | Encounter Summary ---
:1970 Author Organization [employer] Address [address] [place] [address] Care Team Providers Name Role Phone Gagandeep Hinojosa MD Primary Care Provider Reason for Visit Reason Comments Care Coordination Encounter Details Date Type Department Care Team Description 05/02/2012 [facility] Care Coordination [address] [facility] . [address] [place] [address] [place] [address] [phone] (Wo rk) Social History Tobacco Use Types [...] Care Transitions: Timur is enrolled in health half-way: yes, Candidate? yes Number of active medications in EPIC:Assessment: The problem list in EPIC was updated: yes Health Maintenance was reviewed and updated: yes Timur is failing clinical markers for the following health condition(s): Diabetes The patient is due for: Updated labwork, labs pre-entered yes Plan: It is determined that Timur will benefit from the following: Referral to Shear Grinder Operator Helper yes This encounter is routed to the [...] uncontrolled documented in this encounter Care Teams Wood Treating Inspector Relationship Specialty Start Date End Date Gagandeep Hinojosa MD PCP - General 05/17/12 [address] [place] [address] Vane Zarate Psychiatrist Psychiatry 03/22/12 documented as of this encounter
--- OUTSIDE RECORDS SUMMARY | 2022-02-14 15:04 | XMS_ITS | Encounter Summary ---
:1970 Author Organization [employer] Address [address] [place] [address] Care Team Providers Name Role Phone Gagandeep Hinojosa MD Primary Care Provider Encounter Details Date Type Department Care Team Description 05/17/2012 Lab Visit [place] [facility] Encounter for long-term [address] (current) [place] [address] medications [phone] Social History Tobacco Use Types Packs/Day Years Used Date Smoking Tobacco: Never Assessed Sex Assigned at Date Recorded Not on file documented as of this encounter Plan of Treatment Not on filedocumented as of this encounter Procedures Procedure Name Priority Date/Time Associated Diagnosis Comme nts CARNITINE FREE AND Routine 05/17/2012 10:35 Encounter for Resu lts for this TOTAL AM OUTSIDE SALES PROFESSIONAL long-term (current) procedur e are in use of other the results medications section. COMPLETE BLOOD Routine 05/17/2012 10:35 Encounter for Results for this COUNT-W/DIFF AM OUTSIDE SALES PROFESSIONAL long-term (current) procedur e are in use of other the results medications section. DIFFERENTIAL Routine 05/17/2012 10:35 Results for this AM OUTSIDE SALES PROFESSIONAL procedure are i n the results section. AMYLASE Routine 05/17/2012 10:35 Encounter for Results fo r this AM OUTSIDE SALES PROFESSIONAL long-term (current) procedur e are in use of other the results medications section. VALPROIC ACID Routine 05/17/2012 10:35 Encounter for Results f or this (DEPAKENE) AM OUTSIDE SALES PROFESSIONAL long-term (current) procedur e are in use of other the results medications section. LIPASE Routine 05/17/2012 10:35 Encounter for Results fo r this AM OUTSIDE SALES PROFESSIONAL long-term (current) procedur e are in use of other the results medications section. AMMONIA Routine 05/17/2012 10:35 Encounter for Results fo r this AM OUTSIDE SALES PROFESSIONAL long-term (current) procedur e are in use of other the results medications section. ALT (SGPT) Routine 05/17/2012 10:35 Encounter for Results fo r this AM OUTSIDE SALES PROFESSIONAL long-term (current) procedur e are in use of other the results medications section. AST Routine 05/17/2012 10:35 Encounter for Results fo r this AM OUTSIDE SALES PROFESSIONAL long-term (current) procedur e are in use of other the results medications section. documented in this encounter Results Differential (05/17/2012 10:35 AM OUTSIDE SALES PROFESSIONAL) athologist Signature Absolute 2.7 1.8 - 8.0 [...] / Volume Laterality 05/17/2012 10:35 05/17/2012 AM OUTSIDE SALES PROFESSIONAL 10:35 AM OUTSIDE SALES PROFESSIONAL Narrative HP CONVERSION - 05/17/2012 11:04 AM OUTSIDE SALES PROFESSIONAL [place] [address] Vane Zarate MD LAB_1 Performing Organization Address City/State/ZIP Code Phon e Number HP CONVERSION CARNITINE FREE AND TOTAL (05/17/2012 10:35 AM OUTSIDE SALES PROFESSIONAL) athologist Signature Carnitine, Free 29 25 - 60 HP CONVERSION umol/L Carnitine, 41 34 - 86 HP CONVERSION Total umol/L Carnitine 12 5 - 29 HP CONVERSION Esterified umol/L Carnitine 0.4 0.1 - 1.0 HP CONVERSION Kristen/Free Ratio Specimen Anatomical Collection Method Collection Time Receive d Time (Source) Location / / Volume Laterality 05/17/2012 10:35 05/17/2012 9:11 AM OUTSIDE SALES PROFESSIONAL PM OUTSIDE SALES PROFESSIONAL Narrative HP CONVERSION - 05/20/2012 8:41 AM OUTSIDE SALES PROFESSIONAL Performed at [facility] [address] [place] [address] Vane Zarate MD LAB_1 Performing Organization Address City/State/ZIP Code Phon e Number HP CONVERSION Ammonia (05/17/2012 10:35 AM OUTSIDE SALES PROFESSIONAL) athologist Signature Ammonia, Blood 43 0 - 44 HP CONVERSION umol/L Specimen Anatomical Collection Method Collection Time Receive d Time (Source) Location / / Volume Laterality 05/17/2012 10:35 05/17/2012 3:54 AM OUTSIDE SALES PROFESSIONAL PM OUTSIDE SALES PROFESSIONAL Vane Zarate MD LAB_1 Performing Organization Address City/State/ZIP Code Phon e Number HP CONVERSION Valproic Acid (Depakene) (05/17/2012 10:35 AM OUTSIDE SALES PROFESSIONAL) [facility] gist Method Time Signature Date Last Dose HP CONVERSION Valproic Acid Time Last Dose 0930 HP CONVERSION Valproic Acid Valproic 60 50 - 100 HP CONVERSION Acid/Depakene ug/mL (Valp) Specimen Anatomical Collection Method Collection Time Receive d Time (Source) Location / / Volume Laterality 05/17/2012 10:35 05/17/2012 4:01 AM OUTSIDE SALES PROFESSIONAL PM OUTSIDE SALES PROFESSIONAL Vane Zarate MD LAB_1 Performing Organization Address City/State/ZIP Code Phon e Number HP CONVERSION Lipase (05/17/2012 10:35 AM OUTSIDE SALES PROFESSIONAL) athologist Signature Lipase 69 5 - 70 U/L HP CONVERSION Specimen Anatomical Collection Method Collection Time Receive d Time (Source) Location / / Volume Laterality 05/17/2012 10:35 05/17/2012 3:06 AM OUTSIDE SALES PROFESSIONAL PM OUTSIDE SALES PROFESSIONAL Narrative HP CONVERSION - 05/17/2012 4:16 PM OUTSIDE SALES PROFESSIONAL Performed at [facility], [address] [place] [address] Vane Zarate MD LAB_1 Performing Organization Address City/State/ZIP Code Phon e Number HP CONVERSION Amylase (05/17/2012 10:35 AM OUTSIDE SALES PROFESSIONAL) athologist Signature Amylase Serum 40 25 - 115 HP CONVERSION U/L Specimen Anatomical Collection Method Collection Time Receive d Time (Source) Location / / Volume Laterality 05/17/2012 10:35 05/17/2012 3:06 AM OUTSIDE SALES PROFESSIONAL PM OUTSIDE SALES PROFESSIONAL Narrative HP CONVERSION - 05/17/2012 4:16 PM OUTSIDE SALES PROFESSIONAL Performed at [facility], [address] [place] [address] Vane Zarate MD LAB_1 Performing Organization Address [facility] Code Phon e Number HP CONVERSION ALT (SGPT) (05/17/2012 10:35 AM OUTSIDE SALES PROFESSIONAL) [facility] Method Time Signature Alanine 38 4 - 55 HP CONVERSION Aminotransferase U/L Specimen Anatomical Collection Method Collection Time Receive d Time (Source) Location / / Volume Laterality 05/17/2012 10:35 05/17/2012 3:06 AM OUTSIDE SALES PROFESSIONAL PM OUTSIDE SALES PROFESSIONAL Narrative HP CONVERSION - 05/17/2012 4:16 PM OUTSIDE SALES PROFESSIONAL Performed at [facility], [address] [place] [address] Vane Zarate MD LAB_1 Performing Organization Address [facility] Phon e Number HP CONVERSION AST (05/17/2012 10:35 AM OUTSIDE SALES PROFESSIONAL) [facility] Method Time Signature Aspartate 32 0 - 45 HP CONVERSION Aminotransferase U/L Specimen Anatomical Collection Method Collection Time Receive d Time (Source) Location / / Volume Laterality 05/17/2012 10:35 05/17/2012 3:06 AM OUTSIDE SALES PROFESSIONAL PM OUTSIDE SALES PROFESSIONAL Narrative HP CONVERSION - 05/17/2012 4:16 PM OUTSIDE SALES PROFESSIONAL Performed at [facility], [address] [place] [address] Vane Zarate MD LAB_1 Performing Organization Address [facility] Phon e Number HP CONVERSION Hemogram/Plts/Diff (05/17/2012 10:35 AM OUTSIDE SALES PROFESSIONAL) P athologist Signature White Blood Cell 6.7 [...] / Volume Laterality 05/17/2012 10:35 05/17/2012 AM OUTSIDE SALES PROFESSIONAL 10:35 AM OUTSIDE SALES PROFESSIONAL Narrative HP CONVERSION - 05/17/2012 11:04 AM OUTSIDE SALES PROFESSIONAL Performed at [facility], [address] [place] [address] [address] Zarate at [phone], 05/20/2012,09: 43, by DANNY Vane Zarate MD LAB_1 Performing Organization Address City/State/ZIP Code Phon e Number HP CONVERSION documented in this encounter Visit Diagnoses Diagnosis Encounter for long-term (current) use of other medications documented in this encounter Care Teams Test Technician Relationship Specialty Start Date End Date Gagandeep Hinojosa MD PCP - General 05/17/[address] [place] [address] [place] [id number] Vane Zarate Psychiatrist Psychiatry 03/22/12 documented as of this encounter
--- OUTSIDE RECORDS SUMMARY | 2022-02-14 15:04 | XMS_ITS | Encounter Summary ---
:1970 Author Organization [facility] [facility] Address [address] [address] Care Team Providers Name Role Phone Lilian Persaud DO Primary Care Provider Reason for Referral Specialty Diagnoses / Procedures Referred By Contact Refer red To Contact Gagandeep Hinojosa MD [address] [facility] [place] [id number] Referral ID Status Reason Start Date Expiration Date Visits Requ ested Visits Authorized PT DEVELOPER Reason for Visit Reason Comments CONSULT MASS Encounter Details Date Type Department Care Team Description 04/10/2012 Initial Consult [place] [address] Jim [place]rell, Soft tis leydi mass; General Surgery Lipoma of other skin and subcutaneous ti ssue [address] [place] [address] [facility] [place] [id number] [place] ID [phone] [id number] Social History Tobacco Use Types Packs/Day Years [...] 104.3 kg (230 lb) 04/10/2012 10:56 AM SCRIPT DEVELOPER Height 177.8 cm (5' 10) 04/10/2012 10:56 AM SCRIPT DEVELOPER Body Mass Index 33 04/10/2012 10:56 AM SCRIPT DEVELOPER documented in this encounter Progress Notes Jim [...] 5' 10 (177.8 cm) Wt 230 lb (536495 g) BMI 33.00 kg/m2 GENERAL APPEARANCE: Timur [...] mood and affect congruent Imaging performed at [facility]: ULTRASOUND OF THE TWO PALPABLE LUMPS ON [...] ssue documented in this encounter Care Teams Fitter/Welder Relationship Specialty Start Date End Date Lilian Persaud DO PCP - General 12/23/10 05/16/12 [address] [place] [address] Vane Zarate Psychiatrsamantha Psychiatry 03/22/12 documented as of this encounter
--- OUTSIDE RECORDS SUMMARY | 2022-02-14 15:04 | XMS_ITS | Encounter Summary ---
:1970 Author Organization [employer] Address [address] [place] [address] Care Team Providers Name Role Phone Lilian Persaud DO Primary Care Provider Reason for Visit Reason Comments Diabetes Encounter Details Date Type Department Care Team Description 03/29/2012 [facility]ian Persaud DO Diabetes [address] [facility] . [address] [place] [address] [place] [address] [phone] (Wo rk) Social History Tobacco Use Types Packs/Day Years Used Date Smoking Tobacco: Never Assessed Sex Assigned at Date Recorded Not on file documented as of this encounter Nursing Notes Judy Pittman RN - 03/29/2012 10:42 AM CST Left a message for Rustam for a return call. Please transfer to [phone]. RN Refueling Rampman - Diabetes Phone Follow-Up Current diabetes medication [...] his last visit, but he did go [id number] yesterday morning. He thinks the increase in [...] follow up appt. I printed off the [employer] Patient Assistance application to complete at the [...] - General 12/23/10 05/16/12 [address] [place] [address] Vane Zarate Psychiatrsamantha Psychiatry 03/22/12 documented as of this encounter
--- OUTSIDE RECORDS SUMMARY | 2022-02-14 15:04 | XMS_ITS | Encounter Summary ---
:1970 Author Organization [facility] Address [address], [place] [address] Care Team Providers Name Role Phone Lilian Persaud DO Primary Care Provider Reason for Referral Specialty Diagnoses / Procedures Referred By Contact [place] [address] [place] [address] Referral ID Status Reason Start Date Expiration Date Visits Requ ested Visits Authorized Encounter Details Date Type Department Care Team Description 02/16/2012 Notes/Orders Lilian Camejo Other d isorders of lipoid metabolism; Medicine DO Coronary atherosclerosis of unspecified type of vessel, prairie band or graft; [address] [place] [address] KACHINA T Type II or unspecified type diabetes jasen litus without mention of complication, uncontrolled; [address] [place], [place] ASHD (arteriosclerotic heart disease); [place] [address] History of PTCA [phone] Social History Tobacco Use Types Packs/Day Years [...] Coronary atherosclerosis of unspecified type of vessel, prairie band or graft (HRC) Coronary atherosclerosis of unspecified type of vessel, prairie band or graft Type II or unspecified type diabetes jasen litus without mention of complication, uncontrolled ASHD (arteriosclerotic heart disease) (H RC) Coronary atherosclerosis of unspecified type of vessel, prairie band or graft History of PTCA Postsurgical percutaneous transluminal c oronary angioplasty status documented in this encounter Care Teams Reeling Machine Setup Operator Relationship Specialty Start Date End Date Lilian Persaud DO PCP - General 12/23/10 05/16/12 [address] [place] [address] documented as of this encounter
--- OUTSIDE RECORDS SUMMARY | 2022-02-14 15:04 | XMS_ITS | Encounter Summary ---
:1970 Author Organization [employer] Address [address] [place] [address] Care Team Providers Name Role Phone Lilian Persaud DO Primary Care Provider Reason for Visit Reason Comments CYST Encounter Details Date Type Department Care Team Description 04/05/2012 Nurse Triage [facility] Lilian Persaud, CYST [address] [address] [place] [address] [place] [address] [phone] (Wo rk) Social History Tobacco Use Types Packs/Day Years Used Date Smoking Tobacco: Never Assessed Sex Assigned at Date Recorded Not on file documented as of this encounter Nursing Notes Yoana Riley RN - 04/05/2012 8:58 PM CST Protocol: SKIN LUMP OR LOCALIZED [id number] Affirmative: [1] Swelling is painful to touch AND [2] no fever Disposition of See Physician Within 24 Hours suggested. Patient calling. Was seen at [facility] last week for infected sabascious cyst [...] filedocumented in this encounter Care Teams Marine Welder Relationship Specialty Start Date End Date Lilian Persaud DO PCP - General 12/23/10 05/16/12 [address] [place] [address] Vane Zarate Psychiatrsamantha Psychiatry 03/22/12 documented as of this encounter
--- OUTSIDE RECORDS SUMMARY | 2022-02-14 15:04 | XMS_ITS | Encounter Summary ---
:1970 Author Organization [facility] Address [address] [place] [address] Care Team Providers Name Role Phone Lilian Persaud DO Primary Care Provider Reason for Visit Reason Comments Refill Encounter Details Date Type Department Care Team Description 05/04/2012 Refill [facility] Lilian Persaud, Refill [address] [address] [place] [address] [place] [address] [phone] (Wo rk) Social History Tobacco Use Types [...] User: DENITA REYES Appt scheduled for 05/09/12. LABOR DELIVERY Cordelia Leyva RN - 05/05/2012 9:26 AM CST last OV 02/01/12. Plan was to see patient and have labs done in 3 months. Left message to call back to schedule appt. documented in this encounter Plan of Treatment Not on filedocumented as of this encounter Visit Diagnoses Not on filedocumented in this encounter Care Teams Alterations Manager Relationship Specialty Start Date End Date Lilian Persaud DO PCP - General 12/23/10 05/16/12 [address] [place] [address] Vane Zarate Psychiatrsamantha Psychiatry 03/22/12 documented as of this encounter
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
--- OUTSIDE RECORDS SUMMARY | 2022-02-14 15:04 | XMS_ITS | Encounter Summary ---
:1970 Author Organization [employer] Address [address] [place] [address] Care Team Providers Name Role Phone Lilian Persaud DO Primary Care Provider Reason for Visit Reason Comments Abscess Encounter Details Date Type Department Care Team Description 04/06/2012 Office Visit Gagandeep Storm Mass on back (Primary Medicine MD Joanne Dx) [facility] [facility] [address] [place] [address] [address] [phone] [place], [place] [address] Social History Tobacco Use [...] He was seen in urgent care at [place] about a week or so ago and [...] 02/04/2012 ??? LFTs abnormal [790.6CT] 02/02/2012 ??? [place], old [412BB] 09/16/2011 ??? History of PTCA [...] 09/15/2005 Class: Chronic Overview Note: LW Onset: [id number] FAMILY HISTORY OR SICK CONTACTS : No [...] lump documented in this encounter Care Teams Deoiling Machine Operator Relationship Specialty Start Date End Date Lilian Persaud DO PCP - General 12/23/10 05/16/12 [address] [place] [address] Vane Zarate Psychiatrsamantha Psychiatry 03/22/12 documented as of this encounter
--- OUTSIDE RECORDS SUMMARY | 2022-02-14 15:04 | XMS_ITS | Encounter Summary ---
:1970 Author Organization [facility] Address [address] [place] [address] Care Team Providers Name Role Phone Gagandeep Hinojosa MD Primary Care Provider Reason for Visit Reason Comments Diabetes Encounter Details Date Type Department Care Team Description 05/17/2012 Office Visit Gagandeep Storm Type II or unspecified type diabetes mellitus without mention of complication, uncontrolled (Primary Dx); Romario Rubio MD Proteinuria; [address] [place] Unspecified essential hypert ension; [place] [address] [address] Other and unspecified hyperlipidemia; [phone] [place] [address] Tobacco use disorder; [phone] Obesity, unspec ified (Work) Social History Tobacco Use Types Packs/Day Years Used Date Smoking Tobacco: Never Assessed Sex Assigned at Date Recorded Not on file documented as of this encounter Last Filed Vital Signs Vital Sign Reading Time Taken Comments Blood Pressure 139/97 05/17/2012 11:03 AM MEDICAL ASSISTANT SECRETARY omron Pulse 84 05/17/2012 10:54 AM MEDICAL ASSISTANT SECRETARY Temperature - - Respiratory Rate - - Oxygen Saturation - - Inhaled Oxygen Concentration - - Weight 104.8 kg (231 lb) 05/17/2012 10:54 AM MEDICAL ASSISTANT SECRETARY Height 177.8 cm (5' 10) 05/17/2012 10:54 AM MEDICAL ASSISTANT SECRETARY Body Mass Index 33.15 05/17/2012 10:54 AM MEDICAL ASSISTANT SECRETARY documented in this encounter Patient Instructions Patient [...] A normal value is less than 30. CAL ASSISTANT SECRETARY documented in this encounter Progress Notes Gagandeep [...] unspecified documented in this encounter Care Teams Urban Planning Teacher Relationship Specialty Start Date End Date Gagandeep Hinojosa MD PCP - General 05/17/12 1415 [facility] [place] [address] Vane Zarate Psychiatrist Psychiatry 03/22/12 documented as of this encounter
--- OUTSIDE RECORDS SUMMARY | 2022-02-14 15:04 | XMS_ITS | Encounter Summary ---
:1970 Author Organization [employer] Address [address] [place] [address] Care Team Providers Name Role Phone Gagandeep Hinojosa MD Primary Care Provider Reason for Visit Reason Comments Care Coordination Encounter Details Date Type Department Care Team Description 02/06/2013 Telephone [facility] Judy Pittman RN Care Coordination 1415 [facility] . 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 [...] so he is paying for his insulin [id number]. Rustam states he is managing ok at [...] requesting a return call. Please transfer to [phone]. I received notice that Rustam has been frequently utilizing the ER, with 6 visits in the past year. documented in this encounter Plan of Treatment Not on filedocumented as of this encounter Visit Diagnoses Not on filedocumented in this encounter Care Teams Assistance Coordinator Relationship Specialty Start Date End Date Gagandeep Hinojosa MD PCP - General 05/17/12 1415 [facility] [place] [address] Vane Zarate Psychiatrist Psychiatry 03/22/12 documented as of this encounter
--- OUTSIDE RECORDS SUMMARY | 2022-02-14 15:04 | XMS_ITS | Encounter Summary ---
:1970 [facility] Address [address] [place] [address] Care Team Providers Name Role Phone Gagandeep Hinojosa MD Primary Care Provider Reason for Visit Reason Comments Appt. Needed Encounter Details Date Type Department Care Team Description 02/06/2013 Telephone [place] [facility] Gagandeep Hinojosa MD Appt. Needed 1415 [facility] . 1415 [facility] [place] [address] [place] [address] [phone] (Wo rk) Social History Tobacco Use Types Packs/Day Years Used Date Smoking Tobacco: Never Assessed Sex Assigned at Date Recorded Not on file documented as of this encounter Plan of Treatment Not on filedocumented as of this encounter Visit Diagnoses Not on filedocumented in this encounter Care Teams Electronic Prepress Technician Relationship Specialty Start Date End Date Gagandeep Hinojosa MD PCP - General 05/17/12 1415 [place] [address] Vane Zarate Psychiatrist Psychiatry 03/22/12 documented as of this encounter
--- OUTSIDE RECORDS SUMMARY | 2022-02-14 15:04 | XMS_ITS | Encounter Summary ---
:1970 Author Organization [employer] Address [address] [place] [address] Care Team Providers Name Role Phone Lilian Persaud DO Primary Care Provider Encounter Details Date Type Department Care Team Description 02/01/2012 Lab Visit [place] [facility] Coronary atherosclerosis of unspecified type of vessel, barrow or graft; [address] Other disorders of lipoid me tabolism; [place] [address] Nonspecific abnormal results of liver function study; [phone] S/P angioplasty with stent Social History Tobacco Use Types Packs/Day Years Used Date Smoking Tobacco: Never Assessed Sex Assigned at Date Recorded Not on file documented as of this encounter Progress Notes Stevenson Greeen MD - 02/02/2012 2:02 PM CDT Quick Note: Please verify what he is taking. Is he taking gemfibrozil? documented in this encounter Miscellaneous Notes Miscellaneous - 06/04/2016 1:59 PM CSTNotes Recorded by Stevenson Greene MD on 02/02/2012 at 2:02 PMPlease verify what he is taking. Is he taking gemfibrozil? UTIVE RELATIONS SPECIALIST Miscellaneous - 06/04/2016 1:59 PM CSTNotes Recorded by Stevenson Greene MD on 02/02/2012 at 2:02 PMPlease verify what he is taking. Is he taking gemfibrozil? UTIVE RELATIONS SPECIALIST Miscellaneous - 06/04/2016 1:59 PM CSTNotes Recorded by Stevenson Greene MD on 02/02/2012 at 2:02 PMPlease verify what he is taking. Is he taking gemfibrozil? UTIVE RELATIONS SPECIALIST Miscellaneous - 06/04/2016 1:59 PM CSTNotes Recorded by Stevenson Greene MD on 02/02/2012 at 2:02 PMPlease verify what he is taking. Is he taking gemfibrozil? UTIVE RELATIONS SPECIALIST documented in this encounter Plan of Treatment Not on filedocumented as of this encounter Procedures Procedure Name Priority Date/Time Associated Diagnosis Comme nts LIPID PANEL AND Routine 02/01/2012 12:00 Coronary Results for this DIRECT LDL(IF PM CDT atherosclerosis of procedur e are in NEEDED) unspecified type of the resu lts vessel, barrow or graft sect ion. (HRC) Other disorders of lipoid metabolis m (HRC) Nonspecific abnormal results of liver function study S/P angioplasty with stent ALT (SGPT) Routine 02/01/2012 12:00 Coronary Results for this PM CDT atherosclerosis of procedure are in unspecified type of the resu lts vessel, barrow or graft sect ion. (HRC) Other disorders of lipoid metabolis m (HRC) Nonspecific abnormal results of liver function study S/P angioplasty with stent AST Routine 02/01/2012 12:00 Coronary Results for this PM CDT atherosclerosis of procedure are in unspecified type of the resu lts vessel, barrow or graft sect ion. (HRC) Other disorders of lipoid metabolis m (HRC) Nonspecific abnormal results of liver function study S/P angioplasty with stent CK, TOTAL Routine 02/01/2012 12:00 Coronary Results for this PM CDT atherosclerosis of procedure are in unspecified type of the resu lts vessel, barrow or graft sect ion. (HRC) Other disorders [...] - 02/01/2012 4:14 PM CDT Performed at [facility], [address] [place] [address] Transcriptions 06/04/2016 1:59 PM CSTNotes Recorded by Stevenson Greene MD on 02/02/2012 at 2:02 PMPlease verify what he is taking. Is he taking gemfibrozil? Stevenson Greene MD LAB_1 Performing Organization Address [facility] Phon e Number HP CONVERSION (ABNORMAL) ALT (SGPT) (02/01/2012 12:00 PM CDT) [employer] Method Time Signature Alanine 73 (H) 4 - 55 HP CONVERSION Aminotransferase U/L Specimen Anatomical Collection Method Collection Time Receive d Time (Source) Location / / Volume Laterality 02/01/2012 12:00 02/01/2012 3:05 PM CDT PM CDT Narrative HP CONVERSION - 02/01/2012 4:14 PM CDT Performed at [facility], [address] [place] [address] Transcriptions 06/04/2016 1:59 PM CSTNotes Recorded by Stevenson Greene MD on 02/02/2012 at 2:02 PMPlease verify what he is taking. Is he taking gemfibrozil? Stevenson Greene MD LAB_1 Performing Organization Address [facility] Phon e Number HP CONVERSION (ABNORMAL) AST (02/01/2012 12:00 PM CDT) [employer] Method Time Signature Aspartate 55 (H) 0 - 45 HP CONVERSION Aminotransferase U/L Specimen Anatomical Collection Method Collection Time Receive d Time (Source) Location / / Volume Laterality 02/01/2012 12:00 02/01/2012 3:05 PM CDT PM CDT Narrative HP CONVERSION - 02/01/2012 4:14 PM CDT Performed at [facility], [address] [place] [address] Transcriptions 06/04/2016 1:59 PM CSTNotes Recorded by Stevenson Greene MD on 02/02/2012 at 2:02 PMPlease verify what he is taking. Is he taking gemfibrozil? Stevenson Greene MD LAB_1 Performing Organization Address [facility] Phon e Number HP CONVERSION (ABNORMAL) Lipid Panel and Direct LDL(If Needed) (02/01/2012 12:00 PM CDT) [facility] Method Time Signature Cholesterol 203 (H) [...] - 02/01/2012 4:14 PM CDT Performed at [facility], [address] [place] [address] Transcriptions 06/04/2016 1:59 PM CSTNotes Recorded by Stevenson Greene MD on 02/02/2012 at 2:02 PMPlease verify what he is taking. Is he taking gemfibrozil? Stevenson Greene MD LAB_1 Performing Organization Address [facility] Phon e Number HP CONVERSION documented in this encounter Visit Diagnoses Diagnosis Coronary atherosclerosis of unspecified type of vessel, barrow or graft (HRC) Coronary atherosclerosis of unspecified type of vessel, barrow or graft 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 Nonspecific abnormal results of liver fu nction study S/P angioplasty with stent Postsurgical percutaneous transluminal c oronary angioplasty status documented in this encounter Care Teams Binding Cutter Relationship Specialty Start Date End Date Lilian Persaud DO PCP - General 12/23/10 05/16/12 1415 [place] [address] documented as of this encounter
--- OUTSIDE RECORDS SUMMARY | 2022-02-14 15:05 | XMS_ITS | Encounter Summary ---
:1970 Author Organization [facility] Address [address] [place] [address] Care Team Providers Name Role Phone Cori, Lilian [place] DO Primary Care Provider Encounter Details Date Type Department Care Team Description 11/10/2011 Hospital Encounter Heart & Vascular Chest pain, unspecified; [facility] athrscl-u ns vessel Cardiology [address] [facility] [place] [address] Social History Tobacco Use Types [...] resul ts unspecified type of section. vessel, tribe or graft (HRC) documented in this encounter [...] Coronary atherosclerosis of unspecified type of vessel, tribe or graft (HRC) Coronary atherosclerosis of unspecified type of vessel, tribe or graft documented in this encounter Care Teams Cataract Lens Generator Relationship Specialty Start Date End Date Lilian Persaud DO PCP - General 12/23/10 05/16/12 1415 [place] [address] documented as of this encounter
--- OUTSIDE RECORDS SUMMARY | 2022-02-14 15:05 | XMS_ITS | Encounter Summary ---
:1970 Author Organization [facility] Address [address] [place] [address] Care Team Providers Name Role Phone Lilian Persaud DO Primary Care Provider Reason for Visit Reason Comments Refill Encounter Details Date Type Department Care Team Description 07/30/2011 Refill [facility] Lilian Persaud DO Refill 1415 [facility] . [address] [facility] [place] [address] [place] [address] [phone] (Wo rk) Social History Tobacco Use Types [...] on filedocumented in this encounter Care Teams Welder Gas Automatic Relationship Specialty Start Date End Date Lilian Persaud DO PCP - General 12/23/10 05/16/12 1415 [place] [address] documented as of this encounter
--- OUTSIDE RECORDS SUMMARY | 2022-02-14 15:05 | XMS_ITS | Encounter Summary ---
:1970 Author Organization [employer] Address [address] [place] [address] Care Team Providers Name Role Phone Croi Rolando [place] DO Primary Care Provider Reason for Visit Reason Comments Coronary Artery Disease (CAD) Encounter Details Date Type Department Care Team Description 09/16/2011 Office Visit [facility] Stevenson Greene, Cor athrscl-uns vessel; [address] [place] Other disorders of lipoid metabolism; [address] DM w/o complication type II, uncontrolle d; [place] [address] [place] Nonspecific abnormal results of liver function study; [phone] S/P angioplasty with stent; [phone] (Wo rk) ND, old; History o f PTCA; Morbid obesity [...] 2:58 PM CDT call with any questions [phone] Keri RN documented in this encounter Progress Notes Stevenson Greene MD - 09/16/2011 3:07 PM CDT Progress Notes signed by Stevenson Greene MD at 09/17/11925 Author: Stevenson Greene MD Service: (none) Author Type: Physician Filed: 09/17/11925 Note Time: 09/16/111506 Status: Signed Building Performance Specialist: Stevenson Greene MD (Physician) NAME: SHARLENE VARNER MR#: [id number] CSN: [id number] AUTHENTICATING CLINICIAN: Stevenson Greene MD CONFIRM #: [id number] LOC: 3205 CLINIC PROGRESS NOTE DATE OF VISIT: 09/16/2011 : 1970 CHIEF COMPLAINT: Followup for coronary artery disease, issues with medications. HISTORY OF PRESENT ILLNESS: Mr. Varner is a 41-year-old male with diabetes mellitus, dyslipidemia, a previous history of smoking, who had been admitted to [facility] for a myocardial infarction in the beginning [...] factor modifications. CC: ROLANDO PERSAUD DO 1415 [facility] [place] [address] MKK:BREANNA C: CONFIRM #: [id number] documented in this encounter Plan of Treatment Not on filedocumented as of this encounter Visit Diagnoses Diagnosis Coronary atherosclerosis of unspecified type of vessel, kiowa tribe or graft (HRC) Coronary atherosclerosis of unspecified type of vessel, kiowa tribe or graft 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 Type II or unspecified type diabetes jasen litus without mention of complication, uncontrolled Nonspecific abnormal results of liver fu nction study S/P angioplasty with stent Postsurgical percutaneous transluminal c oronary angioplasty status ND, old (HRC) Old myocardial infarction History of PTCA Postsurgical percutaneous transluminal c oronary angioplasty status Morbid obesity (HRC) Morbid obesity documented in this encounter Care Teams Production Helper Relationship Specialty Start Date End Date Rolando Persaud DO PCP - General 12/23/10 05/16/12 [facility] [place] [address] documented as of this encounter
--- OUTSIDE RECORDS SUMMARY | 2022-02-14 15:05 | XMS_ITS | Encounter Summary ---
:1970 Author Organization [employer] Address [address] [place] [address] Care Team Providers Name Role Phone Lilian Persaud DO Primary Care Provider Reason for Visit Reason Comments Information Encounter Details Date Type Department Care Team Description 08/06/2011 [facility]phone [facility] Lilian Persaud DO Information [address] [address] [place] [address] [place] [address] [phone] (Wo rk) Social History Tobacco Use Types [...] he set up an appointment with an Inside Finisher () for follow up on his diabetes [...] and dinner Please encourage him to see perch machine inspector for follow up and med management. Call [...] Primary documented in this encounter Care Teams Advertising Operations Coordinator Relationship Specialty Start Date End Date Lilian Persaud DO PCP - General 12/23/10 05/16/12 1415 [place] [address] documented as of this encounter
--- OUTSIDE RECORDS SUMMARY | 2022-02-14 15:05 | XMS_ITS | Encounter Summary ---
:1970 Author Organization [facility] Address [address] [place] [address] Care Team Providers Name Role Phone Lilian Persaud DO Primary Care Provider Reason for Visit Reason Comments Medication Refill Question Encounter Details Date Type Department Care Team Description 09/01/2011 [facility] Lilian Persaud, Medicat ion Refill Medicine DO Question [address] [address] [facility] [place] [address] [place] [address] [phone] (Wo rk) Social History Tobacco Use Types [...] filedocumented in this encounter Care Teams Instructional Technologist Relationship Specialty Start Date End Date Lilian Persaud DO PCP - General 12/23/10 05/16/12 1415 [place] [address] documented as of this encounter
--- OUTSIDE RECORDS SUMMARY | 2022-02-14 15:05 | XMS_ITS | Encounter Summary ---
:1970 Author Organization [facility] Address [address] [place] [address] Care Team Providers Name Role Phone Lilian Persaud DO Primary Care Provider Reason for Visit Reason Comments Chest Pain Encounter Details Date Type Department Care Team Description 08/19/2011 Nurse Triage [facility] Lilian Persaud DO Chest Pain [address] [address] [place] [address] [place] [address] [phone] (Wo rk) Social History Tobacco Use Types Packs/Day Years Used Date Smoking Tobacco: Never Assessed Sex Assigned at Date Recorded Not on file documented as of this encounter Nursing Notes Diane Hernández RN - 08/19/2011 5:32 PM CDT Protocol: CHEST HAMQ-FATIS-HS Affirmative: [1] Pain lasting > 5 minutes AND [2] age > 30 AND [3] at least one cardiac risk factor (i.e., hypertension, diabetes, obesity, smoker or strong family history of heart disease) Disposition of Call 911 suggested. Pt. calling, history of [place] in 05/06.Pt. developed severe CP and numbness to left arm 1 hr. ago. T[place]an ASA is not on Nitro. No sweating, no nausea. documented in this encounter Plan of Treatment Not on filedocumented as of this encounter Visit Diagnoses Not on filedocumented in this encounter Care Teams Promotions Firm Accounts Manager Relationship Specialty Start Date End Date Lilian Persaud DO PCP - General 12/23/10 05/16/12 9865 [place] [address] documented as of this encounter
--- OUTSIDE RECORDS SUMMARY | 2022-02-14 15:05 | XMS_ITS | Encounter Summary ---
:1970 Author Organization [employer] Address [address] [place] [address] Care Team Providers Name Role Phone Lilian Persaud DO Primary Care Provider Reason for Visit Reason Comments YING Diabetes Encounter Details Date Type Department Care Team Description 09/01/2011 Office Visit [facility] Lilian Persaud, DM w/o complication type II, uncontrolled (Primary Dx); Medicine DO [facility] wart; [address] [facility] [address] [place] [address] [place], [place] [phone] [address] Social History Tobacco Use Types Packs/Day Years [...] Body Mass Index 33.33 06/07/2011 10:38 AM VISUAL MERCHANDISING DIRECTOR documented in this encounter Progress Notes Lilian [...] is not able to afford endocrinology or extension educator appts. Pt feels great, gained 4 [...] DESTRUCT BENIGN SKIN LESIONS UP TO 14 43273 Wart - DESTRUCT BENIGN SKIN LESIONS UP TO 14 [address]7701 Other Orders - nicotine (NICODERM CQ) 21 [...] of warts today. patient advised to use ifji-lnu-mjrhhlp wart removal therapies between office visits. patient [...] unspecified documented in this encounter Care Teams Cloth Burler Relationship Specialty Start Date End Date Lilian Persaud DO PCP - General 12/23/10 05/16/12 1415 [place] [address] documented as of this encounter
--- OUTSIDE RECORDS SUMMARY | 2022-02-14 15:05 | XMS_ITS | Encounter Summary ---
:1970 Author [facility] Address [address], [place] [address] Care Team Providers Name Role Phone Lilian Persaud DO Primary Care Provider Reason for Visit Reason Comments Refill Encounter Details Date Type Department Care Team Description 08/13/2011 Refill [facility] Tanesha Amaya MD Refill [address] [place] [address] 2-260 [facility] N [address] (Wo rk) Social History Tobacco Use Types [...] on filedocumented in this encounter Care Teams Fuel Cell Assembler Relationship Specialty Start Date End Date Lilian Persaud DO PCP - General 12/23/10 05/16/12 1415 [place] [address] documented as of this encounter
--- OUTSIDE RECORDS SUMMARY | 2022-02-14 15:05 | XMS_ITS | Encounter Summary ---
:1970 Author Organization [facility] Address [address] [place] [address] Care Team Providers Name Role Phone Lilian Persaud DO Primary Care Provider Reason for Visit Reason Comments Appt. Needed Encounter Details Date Type Department Care Team Description 01/25/2012 Telephone [facility] Lilian Persaud DO Appt. Needed [address] [facility] [facility] . [address] [facility] [place] [address] [place] [address] [phone] (Wo rk) Social History Tobacco Use Types [...] on filedocumented in this encounter Care Teams Services Tech Relationship Specialty Start Date End Date Lilian Persaud DO PCP - General 12/23/10 05/16/12 1415 [facility] [place] [address] documented as of this encounter
--- OUTSIDE RECORDS SUMMARY | 2022-02-14 15:05 | XMS_ITS | Encounter Summary ---
:1970 Author Organization [employer] Address [address] [place] [address] Care Team Providers Name Role Phone Lilian Persaud DO Primary Care Provider Reason for Visit Reason Comments Diabetes WART Encounter Details Date Type Department Care Team Description 10/05/2011 Office Visit [facility] Lilian Persaud, DM w/o complication type II, uncontrolled (Primary Dx); Medicine DO Plantar wart; [address] [address] [facility] Wart; [place] [address] [place], [place] Warts, genital; [phone] Skin lesion Social History Tobacco Use [...] DESTRUCT BENIGN SKIN LESIONS UP TO 14 11469 Wart - DESTRUCT BENIGN SKIN LESIONS UP TO 14 [address] Warts, genital - OR DESTR PENIS CHARLESN,ARTUR,SURG EXCIS Skin lesion Patient will followup with cardiology and do fasting blood work in 3 months. continue present dose of insulins therapies , patient says this is an affordable option for him. Discussed goal of therapy with fasting blood sugar 80-110. Check hemoglobin A1c in one month. Monitor Patient requested retreatment of warts today. Discussed alternatives. patient advised to use xsau-tql-xhssgks wart removal therapies between office visits. patient [...] tissue documented in this encounter Care Teams Java Developer Consultant Relationship Specialty Start Date End Date Lilian Persaud DO PCP - General 12/23/10 05/16/12 1415 [place] [address] documented as of this encounter
--- OUTSIDE RECORDS SUMMARY | 2022-02-14 15:05 | XMS_ITS | Encounter Summary ---
:1970 Author Organization [facility] Address [address] [place] [address] Care Team Providers Name Role Phone Lilian Persaud DO Primary Care Provider Reason for Visit Reason Comments Appt. Needed Encounter Details Date Type Department Care Team Description 11/16/2011 Telephone [employer] [facility] Lilian Persaud DO Appt. Needed 14[address] [facility] . [address] [place] [address] [place] [address] [phone] (Wo rk) Social History Tobacco Use Types [...] on filedocumented in this encounter Care Teams Factory Maintenance Technician Relationship Specialty Start Date End Date Lilian Persaud DO PCP - General 12/23/10 05/16/12 [address] [place] [address] documented as of this encounter
--- OUTSIDE RECORDS SUMMARY | 2022-02-14 15:05 | XMS_ITS | Encounter Summary ---
:1970 Author Organization [employer] Address [address] [place] [address] Care Team Providers Name Role Phone Lilian Persaud DO Primary Care Provider Reason for Visit Reason Comments Other Encounter Details Date Type Department Care Team Description 09/02/2011 Telephone [facility] Lilian Persaud, DO Other [address] [address] [place] [address] [place] [address] [phone] (Wo rk) Social History Tobacco Use Types [...] on filedocumented in this encounter Care Teams Registered Pharmacy Technician Relationship Specialty Start Date End Date Lilian Persaud DO PCP - General 12/23/10 05/16/12 1415 [place] [address] documented as of this encounter
--- OUTSIDE RECORDS SUMMARY | 2022-02-14 15:05 | XMS_ITS | Encounter Summary ---
:1970 Author Organization [employer] Address [address] [place] [address] Care Team Providers Name Role Phone Lilian Persaud DO Primary Care Provider Reason for Visit Reason Comments UPDATE Encounter Details Date Type Department Care Team Description 08/27/2011 Telephone [place] Lilian Persaud DO UPDATE [address] [address] [place] [address] [place] [address] [phone] (Wo rk) Social History Tobacco Use Types [...] from this past week. Timur Leyva (Self) [phone] (H) y-vm documented in this encounter Plan of Treatment Not on filedocumented as of this encounter Visit Diagnoses Diagnosis Type II or unspecified type diabetes jasen litus without mention of complication, uncontrolled - Primary documented in this encounter Care Teams Denitrator Operator Relationship Specialty Start Date End Date Lilian Persaud DO PCP - General 12/23/10 05/16/12 1415 [place] [place] [address] documented as of this encounter
--- OUTSIDE RECORDS SUMMARY | 2022-02-14 15:05 | XMS_ITS | Encounter Summary ---
:1970 Author Organization [employer] Address [address] [place] [address] Care Team Providers Name Role Phone CoriLilian li Primary Care Provider Reason for Visit Reason Comments Refill Encounter Details Date Type Department Care Team Description 09/13/2011 Refill [facility] Stevenson Greene MD Refill 14[address] [facility] . [address] [facility] [place] [address] [place], [place] [address] (Wo rk) Social History Tobacco Use Types [...] hyperlipidemia documented in this encounter Care Teams Forest Nursery Supervisor Relationship Specialty Start Date End Date Lilian Persaud DO PCP - General 12/23/10 05/16/12 5154 [place] [address] documented as of this encounter
--- OUTSIDE RECORDS SUMMARY | 2022-02-14 15:05 | XMS_ITS | Encounter Summary ---
:1970 Author Organization [employer] Address [address] [place] [address] Care Team Providers Name Role Phone Lilian Persaud DO Primary Care Provider Reason for Visit Reason Comments Diabetes WART Encounter Details Date Type Department Care Team Description 11/02/2011 Office Visit [facility] Lilian Persaud, DM w/o complication type II, uncontrolled (Primary Dx); Medicine DO Plantar wart; [address] [place] [address] [place], [place] [phone] Social History Tobacco Use Types Packs/Day Years [...] is still remaining. He has been using dmxd-xmi-herwbsp salicylic acid treatments. Patient tolerated procedure last [...] DESTRUCT BENIGN SKIN LESIONS UP TO 14 59267 Wart - DESTRUCT BENIGN SKIN LESIONS UP TO 14 23165 Plan: 1. Liquid nitrogen was applied to [...] unspecified documented in this encounter Care Teams Corsetier Relationship Specialty Start Date End Date Lilian Persaud DO PCP - General 12/23/10 05/16/12 [address]61 [place] [address] documented as of this encounter
--- OUTSIDE RECORDS SUMMARY | 2022-02-14 15:05 | XMS_ITS | Encounter Summary ---
:1970 Author Organization [employer] Address [address] [place] [address] Care Team Providers Name Role Phone Lilian Persaud DO Primary Care Provider Reason for Visit Reason Comments Refill Encounter Details Date Type Department Care Team Description 09/14/2011 Refill [facility] Lilian Persaud DO Refill [address] [address] [place] [address] [place] [address] [phone] (Wo rk) Social History Tobacco Use Types [...] on filedocumented in this encounter Care Teams Handicapper Harness Racing Relationship Specialty Start Date End Date Lilian Persaud DO PCP - General 12/23/10 05/16/12 1415 [place] [address] documented as of this encounter
--- OUTSIDE RECORDS SUMMARY | 2022-02-14 15:05 | XMS_ITS | Encounter Summary ---
:1970 Author Organization [employer] Address [address] [place] [address] Care Team Providers Name Role Phone Lilian Persaud DO Primary Care Provider Reason for Visit Reason Comments RESULTS, TEST Encounter Details Date Type Department Care Team Description 11/17/2011 Telephone [facility] Lilian Persaud DO RESULTS, TEST [facility] [facility] [address] [place] [address] [place] [address] [phone] (Wo rk) Social History Tobacco Use Types Packs/Day Years Used Date Smoking Tobacco: Never Assessed Sex Assigned at Date Recorded Not on file documented as of this encounter Nursing Notes Freya Hess - 11/19/2011 11:24 AM CDT Left vm for pt informing of note below. Routing note to pt's information systems planner Brittany Main MD who ordered test. Lilian Persaud DO - 11/19/2011 9:36 AM CDT I believe information systems planner ordered this test, as I did not order this test. Please let pt know that it appears to be normal but he should also speak to his information systems planner about results. Shefali Silva - 11/18/2011 9:48 AM CDT Procedure done at [facility]. NUCLEAR MYOCARDIAL PERFUSION STUDY REPORT, 11/10/2011 INDICATION: Chest pain. 41-year-old man with known coronary artery disease. He has a history of a prior qql-QN-iztxsoabw myocardial infarction. He is status post PCI [...] test When and where was test done? [facility] 11/10/11 Who ordered the test? Lilian Persaud, DO documented in this encounter Plan of Treatment Not on filedocumented as of this encounter Visit Diagnoses Not on filedocumented in this encounter Care Teams Telegraphic Typewriter Mechanic Relationship Specialty Start Date End Date Lilian Persaud DO PCP - General 12/23/10 05/16/12 1415 [place] [address] documented as of this encounter
--- OUTSIDE RECORDS SUMMARY | 2022-02-14 15:05 | XMS_ITS | Encounter Summary ---
:1970 Author Organization [employer] Address [address], [place] [address] Care Team Providers Name Role Phone Lilian Persaud DO Primary Care Provider Reason for Visit Reason Comments Diabetes WART Fungus Encounter Details Date Type Department Care Team Description 08/11/2011 Office Visit [place] [facility] Lilian Persaud, DM w/o complication type II, uncontrolled (Primary Dx); Medicine DO Dermatophytosis of the body; [address] [place] [address] [address] Plantar wart; [address] [place], [place] Wart; [place] [address] Other disorders of lipoid metabolism [phone] Social History Tobacco Use Types Packs/Day Years [...] Body Mass Index 32.75 06/07/2011 10:38 AM CLOTH TEARER documented in this encounter Patient Instructions Patient [...] up multiple issues. 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
--- OUTSIDE RECORDS SUMMARY | 2022-02-14 15:05 | XMS_ITS | Encounter Summary ---
:1970 Author Organization [employer] Address [address] [place] [address] Care Team Providers Name Role Phone Lilian Persaud DO Primary Care Provider Reason for Visit Reason Comments Medication Refill Question Encounter Details Date Type Department Care Team Description 08/31/2011 Telephone [facility] Lilian Persaud, Medicat ion Refill Medicine DO Question [address] [address] [place] [address] [place] [address] [phone] (Wo rk) Social History Tobacco Use Types Packs/Day Years Used Date Smoking Tobacco: Never Assessed Sex Assigned at Date Recorded Not on file documented as of this encounter Nursing Notes Freya Hess - 08/31/2011 3:57 PM CDT Left for [facility] and gave diagnosis code of 250.02 for pt's rx. Also left PN main# [id number] to call back if they have any questions. Ok to give out dx code if they call again, or ok to transfer to my extension [id number]. Lilian Persaud DO - 08/31/2011 3:48 PM CDT diagnosis code 250.02 Maximilian Ag - 08/31/2011 3:17 PM CDT Patient calling back Uses insulin by syringe- NO PUMP Need diagnosis [facility] to [facility] Mail order Has enough till mail order arrives Marci Oliveira, RN - 08/31/2011 2:23 PM CDT Left general message at number above to return call, advised to call [phone], also called and LMTCB for the pt Liza Bee HUC - 08/31/2011 2:17 PM CDT Non -Symptom Message from Front Line Primary Care Provider: Lilian Persaud DO Message: Pt is requesting to receive his diabetic supplies through the mail. They need his diabetic diagnosis code and also need to know if he uses insulin or a pump. documented in this encounter Plan of Treatment Not on filedocumented as of this encounter Visit Diagnoses Not on filedocumented in this encounter Care Teams Touch Up Painter Relationship Specialty Start Date End Date Lilian Persaud DO PCP - General 12/23/10 05/16/12 1415 [place] [address] documented as of this encounter
--- OUTSIDE RECORDS SUMMARY | 2022-02-14 15:05 | XMS_ITS | Encounter Summary ---
:1970 Author Organization [employer] Address [address] [place] [address] Care Team Providers Name Role Phone Lilian Persaud DO Primary Care Provider Reason for Visit Reason Comments Diabetes Encounter Details Date Type Department Care Team Description 02/01/2012 Office Visit [facility] Lilian Persaud, Type II or unspecified type diabetes mellitus without mention of complication, uncontrolled (Primary Dx); Medicine DO Other disorders of lipoid metabolism; [address] Hypertriglyceridemia; [place] [address] [place], [place] Nonspecific abnormal results of liver function study; [phone] [id number] Need for prophylactic vaccination and in oculation against influenza Social History Tobacco Use Types Packs/Day Years Used Date Smoking Tobacco: Never Assessed Sex Assigned at Date Recorded Not on file documented as of this encounter Last Filed Vital Signs Vital Sign Reading Time Taken Comments Blood Pressure 106/75 02/01/2012 11:02 AM CDT Pulse 96 02/01/2012 11:02 AM CDT Temperature - - Respiratory Rate - - Oxygen Saturation - - Inhaled Oxygen Concentration - - Weight 106.1 kg (234 lb) 02/01/2012 11:02 AM CDT Height 177.8 cm (5' 10) 02/01/2012 11:02 AM CDT Body Mass Index 33.58 02/01/2012 11:02 AM CDT documented in this encounter Patient Instructions Patient InstructionsFreya Hess - 02/01/2012 11:07 AM CDT Body mass index is 33.58 kg/(m^2). Patient Followup Plan: Patient declined information at this time: documented in this encounter Progress Notes Cori Lilian Luther, - 02/01/2012 1:06 PM CDT Clinic Visit SUBJECTIVE: Patient presents for follow up of Type 2 Diabetes. Diabetes: Patient is currently on insolent, which he has tolerated well. He mentions that he has hadhigher blood sugars than usual due to his finances. He had to save money to fix his car was unable to afford excellent. He had to ration has been swollen over the past month. His fasting blood sugars have been 130-172. Random blood sugar range 133-210. Patient says his blood sugars have been better controlled and he was at fasting blood sugar 120 in the recent past. Weight has remained stable. Patient remains tobacco free. He has been exercising. Lab Results Component Value Date/Time HGB A1C 9.9* 04/06/2011 13:53 Hemoglobin A1CRM 10.0* 11/25/2010 16:18 Last eye exam: July 2011. no retinopathy. Hyperlipidemia: Patient's insurance did not cover [employer], he is known to have very high triglycerides. He is currently only on simvastatin 80 mg daily and fish oil 2 tablets b.i.d. Patient due for fasting labs today. Lab Results Component Value Date/Time Cholesterol 204* 06/04/2011 13:02 HDL Cholesterol 29* 06/04/2011 13:02 Triglycerides 593* 06/04/2011 13:02 LDL Direct 115 06/04/2011 13:02 LDL Calculated 173* 04/06/2011 13:53 Lab Results Component Value Date/Time Alk Phos 63 03/06/2009 19:50 Aspartate Aminotransferase 38 06/04/2011 13:02 Alanine Aminotransferase 69* 06/04/2011 13:02 Hypertension: history of coronary artery disease with stent placement. Patient doing well on his blood pressure medications. Patient able to afford them and no side effects that he is aware of. Evaluations: Lab Results Component Value Date/Time HGB A1C 9.9* 04/06/2011 13:53 HGB A1C 9.8* 01/22/2011 11:58 Hemoglobin A1CRM 10.0* 11/25/2010 16:18 HGB A1C See Note 11/25/2010 16:18 Lab Results Component Value Date/Time Microalbumin Urine 17.0 12/11/2010 15:13 Lab Results Component Value Date/Time Sodium 141 04/30/2011 13:50 Potassium 3.6 04/30/2011 13:50 Chloride 108 04/30/2011 13:50 Bicarbonate 26 04/30/2011 13:50 History Social History ??? Marital Status: Spouse [...] No narrative on file ROS: No Chest Pain No Dyspnea Past Medical History Diagnosis Date ??? Tobacco [...] ? Hyperlipidemia LDL goal < 70 06/08/2011 has past surgical history that includes Coronary angioplasty with stent. Current outpatient prescriptions Medication Sig Dispense Refill [...] Thiothixene Other (See Comments) Muscle spasm OBJECTIVE: Filed Vitals: 02/01/12 1102 BP: 106/75 Pulse: 96 Height: 5' 10 (1.778 m) Weight: 234 lb (106.142 kg) General: patient in NAD. Alert and oriented x3 Neck: No neck mass/thyromegaly. no lymphadenopathy. CV: RRR without murmurs, rubs, or gallops. Resp: Clear to auscultation without crackles, wheezes or distress. Abdomen: The abdomen was flat, soft and nontender without guarding rebound or masses or organomegaly. Bowel sounds normal. Lower Extremities: No edema. Psychiatric: Alert & oriented with normal affect and insight. Patient does not appear depressed or anxious. Timur was seen today for diabetes. Diagnoses and associated orders for this visit: Dm w/o complication type ii, uncontrolled Dyslipidemia Hypertriglyceridemia Liver function tests abnormal Need for prophylactic vaccination and inoculation against influenza - Influenza TIV (36+ MOS) no refills needed today. Blood work fasting, today. Patient will wait further recommendations with his duplication specialist and see how his blood work results come back with regards to cholesterol. Expectations hemoglobin A1c may be still elevated and not at all of less than 7, since he has been rationing his insulins for the past month. Times and targets of blood sugar testing were reviewed. Discussed the importance of exercise. No change in insulins dosing at this time, await results. Followup in 3 months labs in 3 months. Continued to be tobacco free. Exercise is important. Patient was given information on patient's assistance program with Crestor, which he may consider with his duplication specialist if cholesterol still not at goal. Patient discharged in stable condition. This note was [...] of lipoid metabolism Hypertriglyceridemia (HRC) Pure hyperglyceridemia Nonspecific abnormal results of liver fu nction study Need for prophylactic vaccination and in oculation against influenza documented in this encounter Care Teams Parcel Post Delivery Relationship Specialty Start Date End Date Lilian Persaud DO PCP - General 12/23/10 05/16/12 2036 [place] [address] documented as of this encounter
--- OUTSIDE RECORDS SUMMARY | 2022-02-14 15:06 | XMS_ITS | Encounter Summary ---
:1970 Author Organization [employer] Address [address] [place] [address] Care Team Providers Name Role Phone Lilian Persaud DO Primary Care Provider Reason for Visit Reason Comments Other Encounter Details Date Type Department Care Team Description 06/22/2011 Telephone [facility] Lilian Persaud, Other [address] [address] [place] [address] [place] [address] [phone] (Wo rk) Social History Tobacco Use Types Packs/Day Years Used Date Smoking Tobacco: Never Assessed Sex Assigned at Date Recorded Not on file documented as of this encounter Nursing Notes Freya Hess - 06/22/2011 1:25 PM CST Informed pt of Dr. Persaud's instructions per below. Pt. acknowledges and understands and stated that he will call Tuesday with his results. PAD KNOCKOUT WORKER Lilian Persaud DO - 06/22/2011 1:00 PM CST Increase Lantus to 70 units subcutaneous nightly and Novolog to 26 units TID with meals. Call Tuesdaywith results. PAD KNOCKOUT WORKER Tatyana Christian RN - 06/22/2011 12:44 PM [...] 06/[address] Persaud to review. PAD KNOCKOUT WORKER Joellen Holm. - 06/22/2011 12:34 PM CST Non -Symptom Message from Front Line Primary Care Provider: Lilian Persaud DO Message: pt calling to give us the results of his diabetic blood sugar test would like to speak to nurse. PAD KNOCKOUT WORKER documented in this encounter Plan of Treatment Not on filedocumented as of this encounter Visit Diagnoses Diagnosis Type II or unspecified type diabetes jasen litus without mention of complication, uncontrolled - Primary documented in this encounter Care Teams Brine Tank Tender Relationship Specialty Start Date End Date Lilian Persaud DO PCP - General 12/23/10 05/16/12 1415 [address] [id number] documented as of this encounter
--- OUTSIDE RECORDS SUMMARY | 2022-02-14 15:06 | XMS_ITS | Encounter Summary ---
:1970 Author Organization [employer] Address [address] [place] [address] Care Team Providers Name Role Phone Lilian Persaud DO Primary Care Provider Reason for Visit Reason Comments UPDATE Encounter Details Date Type Department Care Team Description 05/28/2011 Telephone [facility] Lilian Persaud DO UPDATE [address] [address] [place] [address] [place] [address] [phone] (Wo rk) Social History Tobacco Use Types Packs/Day Years Used Date Smoking Tobacco: Never Assessed Sex Assigned at Date Recorded Not on file documented as of this encounter Nursing Notes Jacqueline Herrera LPN - 05/28/2011 3:39 PM CST LM with info ER Lilian Persaud DO - 05/28/2011 12:13 PM [...] 05/27 289 2 hr PP: 05/27 396 ER Lizette Blas - 05/28/2011 11:32 AM CST Non -Symptom Message from Front Line Primary Care Provider: Lilian Persaud DO Message: Patient calling to give blood sugar results as requested. [phone] ER documented in this encounter Plan of Treatment Not on filedocumented as of this encounter Visit Diagnoses Diagnosis Type II or unspecified type diabetes jasen litus without mention of complication, uncontrolled - Primary documented in this encounter Care Teams Manager Discovery Relationship Specialty Start Date End Date Lilian Persaud DO PCP - General 12/23/10 05/16/12 1415 [address] [address] documented as of this encounter
--- OUTSIDE RECORDS SUMMARY | 2022-02-14 15:06 | XMS_ITS | Encounter Summary ---
:1970 Author Organization [employer] Address [address] [place] [address] Care Team Providers Name Role Phone Lilian Persaud DO Primary Care Provider Reason for Visit Reason Comments LAB RESULTS Encounter Details Date Type Department Care Team Description 04/07/2011 [facility]phone [facility] Lilian [facility]aud DO LAB RESULTS [address] [facility] [address] [place] [address] [place] [address] [phone] (Wo rk) Social History Tobacco Use Types [...] hyperglyceridemia documented in this encounter Care Teams Rubber Gasket Inspector Trimmer Relationship Specialty Start Date End Date Lilian Persaud DO PCP - General 12/23/10 05/16/12 [address] [place], [place] [address] documented as of this encounter
--- OUTSIDE RECORDS SUMMARY | 2022-02-14 15:06 | XMS_ITS | Encounter Summary ---
:1970 Author Organization [employer] Address [address] [place] [address] Care Team Providers Name Role Phone Lilian Persaud DO Primary Care Provider Reason for Visit Reason Comments Patient Calling Back Encounter Details Date Type Department Care Team Description 06/11/2011 Telephone [facility] Lilian Persaud DO Patient Calling Back Medicine [address] [facility] [address] [place] [address] [place] [address] [phone] Social History Tobacco Use Types Packs/Day Years Used Date Smoking Tobacco: Never Assessed Sex Assigned at Date Recorded Not on file documented as of this encounter Nursing Notes Jacqueline Vizcaino - 06/15/2011 2:35 PM CST pt informed of the dose changes and will f/u on Tuesday with his readings-pt understood changes and had no further questions. Y BOAT CAPTAIN Lilian Persaud DO - 06/15/2011 2:21 PM CST I was able to speak with internal control consultant jet dyeing machine tender who rec increase Lantus from 50 to 60 units subcutaneous q HS. Also, increase Novolog from 12 units to 20 units TID with meals. Have him call Tuesday am with BS readings. Pt will get a call to see endocrine early than his July appointment. Y BOAT CAPTAIN Marci Oliveira RN - 06/15/2011 10:52 AM CST Pt calling back with update on BS and medication dosing; pt has been taking Novolog 12 U TID and Lantus 50U at HS. 06/13: BS at 0700 304, 5p 320, and 10p 393, 06/14: BS 309,321,360 (same testing times) and today 06/15 thus far BS was 285. to PCP to review and advise Y BOAT CAPTAIN Andie Adams - 06/15/2011 10:46 AM CST [...] Novolog if low BS from newLantus pen. Y BOAT CAPTAIN Maximilian Ag - 06/11/2011 11:29 AM CST Patient calling to report recent blood sugars Has been taking Lantus and Novonlog and Metformin Numbers are on 06/08 AM 295 PM 315 Hs 340 On 06/09 AM 295 PM 393 HS 410 On 06/10 AM 300 PM 320 HS 392 On 06/11 AM 315 PLease call with plan of care Call [phone] Maximilian Ag - 06/11/2011 11:26 AM CST Y BOAT CAPTAIN Lori Winkler - 06/11/2011 11:21 AM CST Non -Symptom Message from Front Line Primary Care Provider: Lilian Persaud DO Message: calling in numbers from another blood test Y BOAT CAPTAIN documented in this encounter Plan of Treatment Not on filedocumented as of this encounter Visit Diagnoses Diagnosis Type II or unspecified type diabetes jasen litus without mention of complication, uncontrolled - Primary documented in this encounter Care Teams Tour Conductor Relationship Specialty Start Date End Date Lilian Persaud DO PCP - General 12/23/10 05/16/12 1415 [place] [id number] documented as of this encounter
--- OUTSIDE RECORDS SUMMARY | 2022-02-14 15:06 | XMS_ITS | Encounter Summary ---
:1970 Author Organization [employer] Address [address] [place] [address] Care Team Providers Name Role Phone Lilian Persaud DO Primary Care Provider Reason for Visit Reason Comments Diabetes Encounter Details Date Type Department Care Team Description 06/01/2011 Telephone [facility] Lilian Persaud DO Diabetes [address] [address] [place] [address] [place] [address] [phone] (Wo rk) Social History Tobacco Use Types Packs/Day Years Used Date Smoking Tobacco: Never Assessed Sex Assigned at Date Recorded Not on file documented as of this encounter Nursing Notes Jacqueline Herrera LPN - 06/01/2011 4:11 PM CST Pt informed. Having no symptoms of hypoglycemia ICAL TECHNOLOGY INSTRUCTOR Lilian Persaud DO - 06/01/2011 3:06 PM CST Have him increase Lantus to 35 units for 3 days, call Tuesday morning with Fasting Blood sugar readings ICAL TECHNOLOGY INSTRUCTOR Tatyana Christian RN - 06/01/2011 2:52 PM CST Spoke with pt. Pt is calling in his fasting am blood glucose readings to report to Dr. Persaud for possible Lantus adjustment. 24: 274 25: 284 26: 287 2: 284 No other sx to report. please call with plan. Call back number listed. To Dr. Persaud ICAL TECHNOLOGY INSTRUCTOR Ale Fountain - 06/01/2011 2:39 PM CST Calling in with his readings. ICAL TECHNOLOGY INSTRUCTOR documented in this encounter Plan of Treatment Not on filedocumented as of this encounter Visit Diagnoses Diagnosis Type II or unspecified type diabetes jasen litus without mention of complication, uncontrolled - Primary documented in this encounter Care Teams Rd Manager Relationship Specialty Start Date End Date Lilian Persaud DO PCP - General 12/23/10 05/16/12 [address] [place] [id number] documented as of this encounter
--- OUTSIDE RECORDS SUMMARY | 2022-02-14 15:06 | XMS_ITS | Encounter Summary ---
:1970 Author Organization [employer] Address [address] [place] [address] Care Team Providers Name Role Phone Lilian Persaud DO Primary Care Provider Reason for Visit Reason Comments RESULTS, TEST Encounter Details Date Type Department Care Team Description 06/08/2011 Telephone [facility] Lilian Persaud DO RESULTS, TEST [address] [facility] [facility] [address] [facility] [address] [place] [address] [place] [address] [phone] (Wo rk) Social History Tobacco Use Types [...] had no changes. Informed of new orders. S AGENT TRADING STAMPS Lilian Persaud DO - 06/08/2011 1:02 PM [...] sugar readings as usual on Tuesday morning. S AGENT TRADING STAMPS Ysabel Rosales - 06/08/2011 12:[address] Persaud to address. Patient calling back with blood sugar reading for past 3 days. Has been taking Lantus/Novolog insulin as instructed in note 06/04/11. Monday 06/05: fasting 269, pre-dinner 325, bedtime 379 Tuesday 06/06: fasting 345, pre-dinner 410 and bedtime 425. Wednesday 06/07: fasting 286, pre-dinner 432 and bedtime 450 Thursday 06/08: fasting 295. S AGENT TRADING STAMPS Andie Adams - 06/08/2011 11:54 AM CST pt calling in his blood sugar test results S AGENT TRADING STAMPS documented in this encounter Plan of Treatment Not on filedocumented as of this encounter Visit Diagnoses Diagnosis Type II or unspecified type diabetes jasen litus without mention of complication, uncontrolled - Primary documented in this encounter Care Teams Internet Marketing Executive Relationship Specialty Start Date End Date Lilian Persaud DO PCP - General 12/23/10 05/16/12 [address] [place] [id number] documented as of this encounter
--- OUTSIDE RECORDS SUMMARY | 2022-02-14 15:06 | XMS_ITS | Encounter Summary ---
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 LDL CHOLESTEROL, Routine 06/04/2011 1:02 PM Resul ts for this DIRECT MEASURED ALUMINA REFINERY OPERATOR procedure ar e in the results section. ALT (SGPT) Routine 06/04/2011 1:02 PM Other disorders of Res ults for this ALUMINA REFINERY OPERATOR lipoid metabolism procedure are in (HRC) the results section. AST Routine 06/04/2011 1:02 PM Other disorders of Res ults for this ALUMINA REFINERY OPERATOR lipoid metabolism procedure are in (HRC) the results section. CK, TOTAL Routine 06/04/2011 1:02 PM Other disorders of Res ults for this ALUMINA REFINERY OPERATOR lipoid metabolism procedure are in (HRC) the results section. documented in this encounter Results LDL Cholesterol, Direct Measured (06/04/2011 1:02 PM ALUMINA REFINERY OPERATOR) athologist Signature LDL Direct 115 0 - 130 HP CONVERSION mg/dL Specimen Anatomical Collection Method Collection Time Receive d Time (Source) Location / / Volume Laterality 06/04/2011 1:02 PM 2 8:20 ALUMINA REFINERY OPERATOR PM ALUMINA REFINERY OPERATOR Narrative HP CONVERSION - 06/04/2011 9:21 PM ALUMINA REFINERY OPERATOR Performed at [facility] ([facility] [address] [place] [address] Lilian Persaud DO LAB_[address] [facility] Phon e Number HP CONVERSION CK, Total (06/04/2011 1:02 PM ALUMINA REFINERY OPERATOR) athologist Signature Creatine Kinase 60 0 - 225 HP CONVERSION U/L Specimen Anatomical Collection Method Collection Time Receive d Time (Source) Location / / Volume Laterality 06/04/2011 1:02 PM 2 8:20 ALUMINA REFINERY OPERATOR PM ALUMINA REFINERY OPERATOR Narrative HP CONVERSION - 06/04/2011 9:07 PM ALUMINA REFINERY OPERATOR Performed at [facility] ([facility] [address] [place] [address] Lilian Persaud DO LAB_1 Performing Organization [address] [facility] Phon e Number HP CONVERSION AST (06/04/2011 1:02 PM ALUMINA REFINERY OPERATOR) [facility] gist Method Time Signature Aspartate 38 0 - 45 HP CONVERSION Aminotransferase U/L Specimen Anatomical Collection Method Collection Time Receive d Time (Source) Location / / Volume Laterality 06/04/2011 1:02 PM 2 8:20 ALUMINA REFINERY OPERATOR PM ALUMINA REFINERY OPERATOR Narrative HP CONVERSION - 06/04/2011 9:07 PM ALUMINA REFINERY OPERATOR Performed at [facility] ([facility] [address] [place] [address] Lilian Persaud DO LAB_1 Performing Organization [address] [facility] Phon e Number HP CONVERSION (ABNORMAL) ALT (SGPT) (06/04/2011 1:02 PM ALUMINA REFINERY OPERATOR) [facility] gist Method Time Signature Alanine 69 (H) 4 - 55 HP CONVERSION Aminotransferase U/L Specimen Anatomical Collection Method Collection Time Receive d Time (Source) Location / / Volume Laterality 06/04/2011 1:02 PM 2 8:20 ALUMINA REFINERY OPERATOR PM ALUMINA REFINERY OPERATOR Narrative HP CONVERSION - 06/04/2011 9:07 PM ALUMINA REFINERY OPERATOR Performed at [facility] ([facility] [address] [place], [place] [id number] Lilian Persaud DO LAB_1 Performing Organization Address City/[facility] Phon e Number HP CONVERSION (ABNORMAL) Lipid Panel and Direct LDL(If Needed) (06/04/2011 1:02 PM ALUMINA REFINERY OPERATOR) [facility] Method Time Signature Cholesterol 204 (H) 0 - 200 HP CONVERSION mg/dL Triglycerides 593 (H) 0 - 149 HP CONVERSION mg/dL HDL Cholesterol 29 (L) >39 mg/dL HP CONVERSION Cholesterol/HDL 7.0 HP CONVERSION Ratio Screen Length Of Fast 12.0 HP CONVERSION Specimen Anatomical Collection Method Collection Time Receive d Time (Source) Location / / Volume Laterality 06/04/2011 1:02 PM 2 8:20 ALUMINA REFINERY OPERATOR PM ALUMINA REFINERY OPERATOR Narrative HP CONVERSION - 06/04/2011 9:07 PM ALUMINA REFINERY OPERATOR Performed at [facility] [address] [place] [address] Lilian Persaud DO LAB_1 Performing Organization Address 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
--- OUTSIDE RECORDS SUMMARY | 2022-02-14 15:06 | XMS_ITS | Encounter Summary ---
:1970 Author Organization [employer] Address [address] [place] [address] Care Team Providers Name Role Phone CoriLilian li Homa SAL Primary Care Provider Reason for Visit Reason Comments Coronary Artery Disease (CAD) Encounter Details Date Type Department Care Team Description 06/07/2011 Office Visit [facility] Vanessa Ram PA-C Cor athrscl-uns vessel; [address] Acute [place]; [address] [place], [place] Other disorders of lipoid me tabolism; [place] [address] DM w/o complication type II, uncontrolle d [phone] (Wo rk) Social History Tobacco Use Types Packs/Day Years Used Date Smoking Tobacco: Never Assessed Sex Assigned at Date Recorded Not on file documented as of this encounter Last Filed Vital Signs Vital Sign Reading Time Taken Comments Blood Pressure 112/76 06/07/2011 10:38 AM ROTARY DRUM DYER Pulse 84 06/07/2011 10:38 AM ROTARY DRUM DYER Temperature - - Respiratory Rate - - Oxygen Saturation - - Inhaled Oxygen Concentration - - Weight 97.3 kg (214 lb 6.4 oz) 06/07/2011 10:38 AM ROTARY DRUM DYER Height 176.5 cm (5' 9.5) 06/07/2011 10:38 AM ROTARY DRUM DYER Body Mass Index 31.21 06/07/2011 10:38 AM ROTARY DRUM DYER documented in this encounter Patient Instructions Patient InstructionsVanessa Ram PA-C - 06/07/2011 11:23 AM CST 1. Increase Lipitor to 80 mg daily (2 current 40 mg tablets, or 1 new 80 mg tablet). 2. Recheck ast, ck, cholesterol labs. Please contact the lab at [phone] to schedule a lab appointment at [facility] after a 12 hour fast, end of June. They will have the lab orders when you get there, so you are not responsible to bring a lab slip. RY DRUM DYER documented in this encounter Progress Notes Vanessa Ram PA-C - 06/07/2011 11:51 AM CST Cardiology Clinic Follow up Visit CLINIC PROGRESS NOTE VISIT DATE: 06/07/2011 Patient: Timur Krishnamurthy SUBJECTIVE: This is a pleasant patient present today for a post-hospitalization/post-angiogram visit. The patient was admitted to [facility] on April 29 with chest pain. [...] 250.02 ??? Erectile dysfunction 607.84D ??? Acute VT 410.90BQ ??? ASHD (arteriosclerotic heart disease) 414.00B [...] (176.5 cm) Wt 214 lb 6.4 oz (67498 g) BMI 31.21 kg/m2 GENERAL: The patient [...] his cravings decrease. 5. Follow-up with a truck driver instructor in 6 to 8 weeks to review [...] of modifying cardiac risk factors. 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
--- OUTSIDE RECORDS SUMMARY | 2022-02-14 15:06 | XMS_ITS | Encounter Summary ---
:1970 Author Organization [facility] Address [address] [address] Care Team Providers Name Role Phone Lilian Persaud DO Primary Care Provider Reason for Visit Reason Comments Appt. Needed Encounter Details Date Type Department Care Team Description 06/15/2011 Telephone [facility] [address] Rosalinda Calhoun cca, MD Appt. Needed Endocrinology [address] [place] [address] [place], [place] [address] [phone] Social History Tobacco Use Types Packs/Day Years [...] on filedocumented in this encounter Care Teams Tempering Oven Operator Relationship Specialty Start Date End Date Lilian Persaud DO PCP - General 12/23/10 05/16/12 [address] [place] [id number] documented as of this encounter
--- OUTSIDE RECORDS SUMMARY | 2022-02-14 15:06 | XMS_ITS | Encounter Summary ---
:1970 Author Organization [employer] Address [address] [place] [address] Care Team Providers Name Role Phone Lilian Persaud Primary Care Provider Reason for Visit Reason Comments Missed Appointment Encounter Details Date Type Department Care Team Description 05/19/2011 Telephone [facility] Vanessa Ram PA-C Missed Appointment [address] [facility] . [address] [place] [address] [place], [place] [phone] (Wo rk) Social History Tobacco Use Types [...] for the end of June. Thanks! ER MEAL Aviva Bowles, RN - 05/19/2011 11:41 AM [...] he does not want to drive to [facility] for an earlier appointment with Vanessa Ram. He will call in the meantime if he experiences any issues. OK to wait until 06/07? Thanks. documented in this encounter Plan of Treatment Not on filedocumented as of this encounter Visit Diagnoses Not on filedocumented in this encounter Care Teams Cartography/Mapping Technician Relationship Specialty Start Date End Date Lilian Persaud DO PCP - General 12/23/10 05/16/12 [address] [place] [place] [address] documented as of this encounter
--- OUTSIDE RECORDS SUMMARY | 2022-02-14 15:06 | XMS_ITS | Encounter Summary ---
:1970 Author Organization [email or web address] Address [address] [place] [address] Care Team Providers Name Role Phone Lilian Persaud DO Primary Care Provider Reason for Visit Reason Comments RESULTS, TEST Encounter Details Date Type Department Care Team Description 06/18/2011 Telephone [facility] Lilian Persaud DO RESULTS, TEST [facility] [facility] [address] [place] [address] [place] [address] [phone] (Wo rk) Social History Tobacco Use Types Packs/Day Years Used Date Smoking Tobacco: Never Assessed Sex Assigned at Date Recorded Not on file documented as of this encounter Nursing Notes Jacqueline Herrera LPN - 06/18/2011 1:35 PM CST Pt. informed. EMIC INTERN Lilian Persaud DO - 06/18/2011 12:54 PM CST Increase Lantus from 60 units nightly to 65 units nightly. Increase NovoLog from 20 units t.i.d. with meals to 24 units t.i.d. with meals. Have patient call Tuesday with blood sugar readings. Please check to see the patient is aware of his earlier appointment with Dr. Calhoun with endocrine,who I have discussed his case with. EMIC INTERN Sarah Leon - 06/18/2011 12:45 PM CST calling to report his blood sugars as you had asked him to do. 06/15 am was 285, afternoon 310 and bedtime 355. 06/16 am298,afternoon 320, [id number], 06/17 am302, afternoon 322 and bedtime 370 and this morning it was 264. please call with plan EMIC INTERN Jo Cruz - 06/18/2011 12:35 PM CST Non -Symptom Message from Front Line Primary Care Provider: Lilian Persaud DO Message: Pt requesting his blood sugar test results. EMIC INTERN documented in this encounter Plan of Treatment Not on filedocumented as of this encounter Visit Diagnoses Diagnosis Type II or unspecified type diabetes jasen litus without mention of complication, uncontrolled - Primary documented in this encounter Care Teams Woods Laborer Relationship Specialty Start Date End Date Lilian Persaud DO PCP - General 12/23/10 05/16/12 [address] [place] [address] documented as of this encounter
--- OUTSIDE RECORDS SUMMARY | 2022-02-14 15:06 | XMS_ITS | Encounter Summary ---
:1970 Author Organization [employer] Address [address] [address] Care Team Providers Name Role Phone Rolando Lopez Primary Care Provider Encounter Details Date Type Department Care Team Description 04/29/2011 - Hospital [facility] 2S-Tanesha Lennon MD [address] [facility] [facility] [address] [place] [address] Other disorders of lipoid metabolism; 05/01/2011 Encounter ICU Geena Diaz MD [address] [place] [address] DM w/o complication type II, uncontrolle d; [address] Hypertriglyce ridemia; [place] DM (diabetes mellitus) type II uncontrolled with renal manifestation; [place], [place] DM renal m anif type II, uncontrolled; [address] [address] athrscl-uns vessel; [phone] Laboratory exam ination, unspecified; AMI NOS, unspec ified; Pure hyperglyce ridemia Social History Tobacco Use Types Packs/Day Years Used Date Smoking Tobacco: Never Assessed Sex Assigned at Date Recorded Not on file documented as of this encounter Last Filed Vital Signs Vital Sign Reading Time Taken Comments Blood Pressure 117/87 05/01/2011 8:[address] ROLLER OPERATOR Pulse 82 05/01/2011 8:[address] ROLLER OPERATOR Temperature 36.6 ??C (97.9 ??F) 05/01/2011 8:[address] ROLLER OPERATOR Respiratory Rate 16 05/01/2011 8:[address] ROLLER OPERATOR Oxygen Saturation 98% 05/01/2011 8:[address] ROLLER OPERATOR Inhaled Oxygen Concentration - - Weight 100.3 kg (221 lb 3.2 oz) 04/29/2011 8:[address] ROLLER OPERATOR Height - - Body Mass Index 32.2 01/22/2011 11:08 AM CDT documented in this encounter Discharge Summaries Tanesha Greene MD - 05/01/2011 3:21 PM CST Discharge Summaries signed by Tanesha Greene MD at 05/01/111818 Author: Tanesha Greene MD Service: (none) Author Type: Physician Filed: 05/01/111818 Note Time: 05/01/111520 Status: Signed Strategic Partner Development Manager: Tanesha Greene MD (Physician) NAME: SHARLENE KRISHNAMURTHY MR#: [id number] CSN: [id number] AUTHENTICATING CLINICIAN: Tanesha Greene MD CONFIRM #: [id number] LOC: 1 HOSPITAL DISCHARGE SUMMARY DATE OF [...] inferior Q-waves. The patient was hospitalized at [facility] in November 2009. CT angiogram at that time demonstrated no flow-limiting disease in the right coronary. His exercise nuclear stress test was normal. 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 PAST MEDICAL HISTORY: As noted earlier, hypertension, [...] 4 mg daily. CLAIREK:MEDWendy C: CONFIRM #: [id number] ROLLER OPERATOR documented in this encounter Medications at [...] hours). 1 12 capsuleIndications: Indications: Hypertriglyceridemia HYPERTRIGLYCERIDEMIA ([facility]) divalproex (DEPAKOTE) Take 2,000 mg by [...] to home today. He prefers follow-up in [place] and our schedulers will call him on Tuesday to arrange PA visit in 7- 10 days and Globe Tester visitin 4-6 weeks. Patient discussed with Dr. [...] Blood Glucose Test 299 (mg/dL) Assessment/Plan: Acute ID Ischemic CM EF 41% RCA stent Uncontrolled [...] Safe transfer to: /. Safe transfer from: [facility]. 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 A: Pt placed wallet in valuables envelope and security took it to the vault. R: Pt verbalizes relief that valuables are safe. Will pickle processor upon discharge, pick-up slip placed inchart. Abbie Mukherjee RN 11:02 PM 04/29/2011 Jessenia Cowart - 04/29/2011 8:20 PM CST ADMIT O: Admitted patient via cart from [facility] to bed # 384/384 -01. D: [...] are both issues. Favor bare metal stent. --[facility] Estevan Taylor MD - 04/30/2011 10:19 AM CST Consults signed by Estevan Taylor MD at 05/01/1135 Author: Estevan Taylor MD Service: (none) Author Type: Physician Filed: 05/01/1135 Note Time: 04/30/11 101 Status: Signed Strategic Partner Development Manager: Estevan Taylor MD (Physician) NAME: SHARLENE KRISHNAMURTHY MR#: [id number] CSN: [id number] AUTHENTICATING CLINICIAN: Estevan Taylor MD CONFIRM #: [id number] LOC: 1 HOSPITAL CONSULTATION DATE OF CONSULTATION: [...] and on previously. He was hospitalized at [facility] in November 2009 and at that point the CT angiogram showed non-flow- limiting disease in the right coronary, and he had a normal exercise nuclear scan. 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 He has been walking several [...] NEUROLOGIC: Cranial nerves normal. His electrocardiogram from [place] shows sinus rhythm, Q-waves in inferior leads, [...] would be favored. CC: ROLANDO LOPEZ, DO [address] [facility] [place] [address] [facility]:MEDQ C: CONFIRM #: [id number] ROLLER OPERATOR documented in this encounter OR Notes H&P - Geena Diaz MD - 04/29/2011 9:14 PM CST H&P signed by Geena Diaz MD at 04/29/112256 Author: Geena Diaz MD Service: (none) Author Type: Physician Filed: 04/29/112256 Note Time: 04/29/112113 Status: Signed Strategic Partner Development Manager: Geena Diaz MD (Physician) NAME: SHARLENE KRISHNAMURTHY MR#: [id number] CSN: [id number] AUTHENTICATING CLINICIAN: Geena Diaz MD CONFIRM #: [id number] LOC: 1 HOSPITAL HISTORY AND PHYSICAL DATE [...] was started on heparin infusion at the [facility] and given metoprolol 12.5 mg orally. Cardiology at [facility] was contacted and they recommended he be [...] 1000 mg XR product at bedtime. 8. Chelsea-3 fatty acid fish oil 2 grams daily. 9. Risperidone 4 mg daily. 10.Patient also running heparin infusion for anticoagulation on arrival. ADVERSE DRUG REACTIONS: Haldol, thiothixene, aripiprazole, trifluoperazine and ziprasidone. FAMILY HISTORY.: Dad had an ID at age 35 and is currently doing [...] complete physical exam is unremarkable. DATA: From [facility] today: Sodium 130 which is stable for this patient, with potassium 4, creatinine 0.71. From April 28, 2011: Hemoglobin 14 with white count 8000 and INR 1.0. [facility] labs from today: Platelets 209, INR 1.1, creatinine 0.8, PTT 30. Chest x-ray from [facility] reviewed by their Radiologist as showing no [...] DISCUSSION: Patient's blood sugars were monitored at [facility]. PLAN: Patient is n.p.o. now in anticipation [...] in the a.m. SME:MEDQ C: CONFIRM #: [id number] ROLLER OPERATOR documented in this encounter Miscellaneous Notes [...] Date:04/30/11, End Date:-, Frequency:- *No Administrations Recorded ROLLER OPERATOR documented in this encounter Plan of Treatment Not on filedocumented as of this encounter Procedures Procedure Name Priority Date/Time Associated Comments Diagnosis BEDSIDE GLUCOSE Routine 05/01/2011 8:05 Results f or this MONITOR POCT AM ROAD ROLLER OPERATOR procedure are i n the results section. PLATELETS Routine 05/01/2011 5:58 Results for this AM ROAD ROLLER OPERATOR procedure are i n the results section. TROPONIN I Specified Time 05/01/2011 4:49 Results fo r this AM ROAD ROLLER OPERATOR procedure are i n the results section. CK, TOTAL Specified Time 05/01/2011 4:49 Results fo r this AM ROAD ROLLER OPERATOR procedure are i n the results section. APTT (ACTIVATED Specified Time 05/01/2011 4:48 Results for this PARTIAL AM ROAD ROLLER OPERATOR procedure are i n THROMBOPLASTIN TIME the resu lts section. BEDSIDE GLUCOSE Routine 04/30/2011 9:33 Results f or this MONITOR POCT PM ROAD ROLLER OPERATOR procedure are i n the results section. LABS CARD PROF TROPI STAT 04/30/2011 7:53 Resu lts for this [address] ROLLER OPERATOR procedure are i n the results section. CARD PROF TROPI 90 STAT 04/30/2011 5:30 Result s for this MIN PM ROAD ROLLER OPERATOR procedure are i n the results section. ECG 12 LEAD INPATIENT STAT 04/30/2011 5:07 Res ults for this PM ROAD ROLLER OPERATOR procedure are i n the results section. BEDSIDE GLUCOSE Routine 04/30/2011 4:35 Results f or this MONITOR POCT PM ROAD ROLLER OPERATOR procedure are i n the results section. GLUCOSE Routine 04/30/2011 1:50 Results for this PM ROAD ROLLER OPERATOR procedure are i n the results section. CARDIAC PROFILE Routine 04/30/2011 1:50 Results f or this PM ROAD ROLLER OPERATOR procedure are i n the results section. CREATININE / GFR Routine 04/30/2011 1:50 Results for this PM ROAD ROLLER OPERATOR procedure are i n the results section. COMPLETE BLOOD Routine 04/30/2011 1:50 Results fo r this COUNT-W/DIFF PM ROAD ROLLER OPERATOR procedure are i n the results section. DIFFERENTIAL Routine 04/30/2011 1:50 Results for this PM ROAD ROLLER OPERATOR procedure are i n the results section. ELECTROLYTE PANEL Routine 04/30/2011 1:50 Results for this PM ROAD ROLLER OPERATOR procedure are i n the results section. MAGNESIUM Routine 04/30/2011 1:50 Results for this PM ROAD ROLLER OPERATOR procedure are i n the results section. CK, TOTAL Routine 04/30/2011 1:50 Results for this PM ROAD ROLLER OPERATOR procedure are i n the results section. BUN Routine 04/30/2011 1:50 Results for this PM ROAD ROLLER OPERATOR procedure are i n the results section. INR/PROTIME Routine 04/30/2011 1:50 Results for this PM ROAD ROLLER OPERATOR procedure are i n the results section. CARDIAC CATH Routine 04/30/2011 1:06 Results for this PROCEDURE PM ROAD ROLLER OPERATOR procedure are i n the results section. BEDSIDE GLUCOSE Routine 04/30/2011 12:27 Results for this MONITOR POCT PM ROAD ROLLER OPERATOR procedure are i n the results section. APTT (ACTIVATED Specified Time 04/30/2011 10:52 Result s for this PARTIAL AM ROAD ROLLER OPERATOR procedure are i n THROMBOPLASTIN TIME the resu lts section. BEDSIDE GLUCOSE Routine 04/30/2011 8:49 Results f or this MONITOR POCT AM ROAD ROLLER OPERATOR procedure are i n the results section. APTT (ACTIVATED Specified Time 04/30/2011 3:29 Results for this PARTIAL AM ROAD ROLLER OPERATOR procedure are i n THROMBOPLASTIN TIME the resu lts section. SODIUM Specified Time 04/30/2011 3:29 Results fo r this AM ROAD ROLLER OPERATOR procedure are i n the results section. BEDSIDE GLUCOSE Routine 04/29/2011 9:22 Results f or this MONITOR POCT PM ROAD ROLLER OPERATOR procedure are i n the results section. APTT (ACTIVATED STAT 04/29/2011 8:14 Results f or this PARTIAL PM ROAD ROLLER OPERATOR procedure are i n THROMBOPLASTIN TIME the resu lts section. PLATELETS STAT 04/29/2011 8:14 Results for this PM ROAD ROLLER OPERATOR procedure are i n the results section. INR/PROTIME STAT 04/29/2011 8:14 Results for this PM ROAD ROLLER OPERATOR procedure are i n the results section. CREATININE / GFR STAT 04/29/2011 8:13 Results for this PM ROAD ROLLER OPERATOR procedure are i n the results section. MRSA CULTURE Routine 04/29/2011 8:05 Results for this PM ROAD ROLLER OPERATOR procedure are i n the results section. ECG 12 LEAD INPATIENT STAT 04/29/2011 7:58 Res ults for this PM ROAD ROLLER OPERATOR procedure are i n the results section. documented in this encounter Results BEDSIDE GLUCOSE MONITOR (05/01/2011 8:[address] ROLLER OPERATOR) athologist Signature Bedside Blood 299 mg/dL HP CONVERSION Glucose Test Specimen Anatomical Collection Method Collection Time Receive d Time (Source) Location / / Volume Laterality 05/01/2011 8:05 AM 2 8:25 ROAD ROLLER OPERATOR AM ROAD ROLLER OPERATOR Tanesha rGeene MD LAB_1 Performing Organization Address City/State/ZIP Code Phon e Number HP CONVERSION Platelets (05/01/2011 5:[address] ROLLER OPERATOR) athologist Signature Platelet Count 171 140 - 450 HP CONVERSION k/cmm Specimen Anatomical Collection Method Collection Time Receive d Time (Source) Location / / Volume Laterality 05/01/2011 5:58 AM 2 6:00 ROAD ROLLER OPERATOR AM ROAD ROLLER OPERATOR Celso Cronin MD LAB_1 Performing Organization Address City/State/ZIP Code Phon e Number HP CONVERSION Troponin I (05/01/2011 4:[address] ROLLER OPERATOR) athologist Signature TROPONIN I <0.10 0.00 - 0.30 HP CONVERSION ng/mL Specimen Anatomical Collection Method Collection Time Receive d Time (Source) Location / / Volume Laterality BLOOD: 05/01/2011 4:49 AM 2 4:51 RO[address] ROLLER OPERATOR AM ROAD ROLLER OPERATOR Demario Mcintyre MD LAB_1 Performing Organization Address City/State/ZIP Code Phon e Number HP CONVERSION CK, Total (05/01/2011 4:[address] ROLLER OPERATOR) athologist Signature Creatine Kinase 63 0 - 225 HP CONVERSION U/L Specimen Anatomical Collection Method Collection Time Receive d Time (Source) Location / / Volume Laterality BLOOD: 05/01/2011 4:49 AM 2 4:[address] ROLLER OPERATOR AM ROAD ROLLER OPERATOR Demario Mcintyre MD LAB_1 Performing Organization Address City/State/ZIP Code Phon e Number HP CONVERSION APTT (Activated Partial Thromboplastin Time) (05/01/2011 4:[address] ROLLER OPERATOR) [facility] Method Time Signature Partial 27.3 25.0 - HP CONVERSION Thromboplastin Time 38.0 sec Specimen Anatomical Collection Method Collection Time Receive d Time (Source) Location / / Volume Laterality 05/01/2011 4:48 AM 2 4:[address] ROLLER OPERATOR AM ROAD ROLLER OPERATOR Geena Diaz MD LAB_1 Performing Organization Address City/[facility]/ZIP Code Phon e Number HP CONVERSION BEDSIDE GLUCOSE MONITOR (04/30/2011 9:[address] ROLLER OPERATOR) athologist Signature Bedside Blood 353 mg/dL HP CONVERSION Glucose Test Specimen Anatomical Collection Method Collection Time Receive d Time (Source) Location / / Volume Laterality 04/30/2011 9:33 PM 2 9:40 RO[address] ROLLER OPERATOR PM ROAD ROLLER OPERATOR Celso Cronin MD LAB_1 Performing Organization Address City/[facility]/ZIP Code Phon e Number HP CONVERSION LABS CARD PROF TROPI 6 HRS (04/30/2011 7:[address] ROLLER OPERATOR) athologist Signature Tropi At 6 Hrs <0.10 0.00 - HP CONVERSION 0.30 ng/mL Specimen Anatomical Collection Method Collection Time Receive d Time (Source) Location / / Volume Laterality 04/30/2011 7:53 PM 2 8:[address] ROLLER OPERATOR PM ROAD ROLLER OPERATOR Narrative HP CONVERSION - 04/30/2011 8:[address] ROLLER OPERATOR .Critical _TROPI_ result of _0.48_calle d to and read back by_HANNAH FROM CAT.LAB_, 04/30/2011,16:25, by [email or web address] called to and read back by hayder ??rn 3e, 04/30/2011,14:55, by MONICA Celso Cronin MD LAB_1 Performing Organization Address City/[facility]/ZIP Code Phon e Number HP CONVERSION CARD PROF TROPI 90 MIN (04/30/2011 5:[address] ROLLER OPERATOR) athologist Signature Tropi at 90 Min <0.10 0.00 - HP CONVERSION 0.30 ng/mL Specimen Anatomical Collection Method Collection Time Receive d Time (Source) Location / / Volume Laterality 04/30/2011 5:30 PM 2 5:34 ROAD ROLLER OPERATOR PM ROAD ROLLER OPERATOR Narrative HP CONVERSION - 04/30/2011 6:[address] ROLLER OPERATOR .Critical _TROPI_ result of _0.48_calle d to and read back by_ERIC FROM CAT.LAB_, 04/30/2011,16:25, by [email or web address] called to and read back by hayder ??rn 3e, 04/30/2011,14:55, by MONICA Celso Crnoin MD LAB_1 Performing Organization Address City/[facility]/ZIP Code Phon e Number HP CONVERSION ECG 12 Lead Inpatient (04/30/2011 5:[address] ROLLER OPERATOR) P athologist Signature Ventricular Rate 76 BPM MUSE GHP Atrial Rate 76 BPM MUSE GHP P-R Interval 140 ms MUSE GHP QRS Duration 98 ms MUSE GHP QT 402 ms MUSE GHP QTc 452 ms MUSE GHP P [place] 35 degrees MUSE GHP R [place] 32 degrees MUSE GHP T [place] -28 degrees MUSE GHP Specimen (Source) Anatomical Collection Method Collection Time Re ceived Time Location / / Volume Laterality 04/30/2011 5:[address] ROLLER OPERATOR Narrative MUSE GHP - 07/31/2019 4:22 [...] MD PN ECG ORDERABLES Performing Organization Address [facility] Phon e Number MUSE GHP [address] [place] [address] BEDSIDE GLUCOSE MONITOR (04/30/2011 4:[address] ROLLER OPERATOR) athologist Signature Bedside Blood 149 mg/dL HP CONVERSION Glucose Test Specimen Anatomical Collection Method Collection Time Receive d Time (Source) Location / / Volume Laterality 04/30/2011 4:35 PM 2 4:45 RO[address] ROLLER OPERATOR PM ROAD ROLLER OPERATOR Celso Cronin MD LAB_1 Performing Organization Address City/[facility] Phon e Number HP CONVERSION INR/Protime (04/30/2011 1:[address] ROLLER OPERATOR) P athologist Signature Prothrombin Time 13.5 [...] valves in the aortic position , acute ID, valvular heart disease and atrial fibril lation. Mechanical prosthetic valves, (high risk ). ? INR 2.5-3.5 Prevention of recurrent myocardial infar ct. These recommended ranges serve as guidel mike. Adjustment outside these ranges may be c linically indicated. Specimen Anatomical Collection Method Collection Time Receive d Time (Source) Location / / Volume Laterality 04/30/2011 1:50 PM 2 1:[address] RO[address] ROLLER OPERATOR PM ROAD ROLLER OPERATOR Celso Cronin MD LAB_1 Performing Organization Address City/[facility] Phon e Number HP CONVERSION (ABNORMAL) Differential (04/30/2011 1:[address] ROLLER OPERATOR) Component Value Ref Test Analysis Performed [...] Volume Laterality 04/30/2011 1:50 PM 2 1:[address] RO[address] ROLLER OPERATOR PM ROAD ROLLER OPERATOR Celso Cronin MD LAB_1 Performing Organization Address [facility] Phon e Number HP CONVERSION (ABNORMAL) CARDIAC PROFILE (04/30/2011 1:[address] ROLLER OPERATOR) [facility] Method Time Signature Tropi Baseline 0.48 (CH) 0.00 - HP CONVERSION 0.30 ng/mL Specimen Anatomical Collection Method Collection Time Receive d Time (Source) Location / / Volume Laterality 04/30/2011 1:50 PM 2 1:[address] ROLLER OPERATOR PM ROAD ROLLER OPERATOR Narrative HP CONVERSION - 04/30/2011 4:[address] ROLLER OPERATOR .Critical _TROPI_ result of _0.48_calle d to and read back by_ERIC FROM CAT.LAB_, 04/30/2011,16:25, by [email or web address] 51 called to and read back by hayder ??rn 3e, 04/30/2011,14:55, by MONICA Celso Cronin MD LAB_1 Performing Organization Address City/[facility]/ZIP Code Phon e Number HP CONVERSION (ABNORMAL) Hemogram/Plts/Diff (04/30/2011 1:[address] ROLLER OPERATOR) [facility] Method Time Signature White Blood Cell 10.5 [...] Volume Laterality 04/30/2011 1:50 PM 2 1:[address] RO[address] ROLLER OPERATOR PM ROAD ROLLER OPERATOR Narrative HP CONVERSION - 04/30/2011 2:[address] ROLLER OPERATOR .plt 51 called to and read back by hayder ??rn 3e, 04/30/2011,14:55, by STEDA Celso Cronin MD LAB_1 Performing Organization Address [facility] Phon e Number HP CONVERSION Electrolyte Panel (04/30/2011 1:[address] ROLLER OPERATOR) athologist Signature Sodium 141 137 - 147 HP CONVERSION mEq/L Potassium 3.6 3.5 - 5.2 HP CONVERSION mEq/L Chloride 108 98 - 110 HP CONVERSION mEq/L Bicarbonate 26 23 - 33 HP CONVERSION mmol/L Specimen Anatomical Collection Method Collection Time Receive d Time (Source) Location / / Volume Laterality 04/30/2011 1:50 PM 2 1:[address] ROLLER OPERATOR PM ROAD ROLLER OPERATOR Celso Cronin MD LAB_1 Performing Organization Address City/State/ZIP Code Phon e Number HP CONVERSION Magnesium (04/30/2011 1:[address] ROLLER OPERATOR) athologist Signature Magnesium 2.2 1.5 - 2.4 HP CONVERSION mg/dL Specimen Anatomical Collection Method Collection Time Receive d Time (Source) Location / / Volume Laterality 04/30/2011 1:50 PM 2 1:[address] RO[address] ROLLER OPERATOR PM ROAD ROLLER OPERATOR Celso Cronin MD LAB_1 Performing Organization Address City/[facility]/ZIP Code Phon e Number HP CONVERSION (ABNORMAL) GLUCOSE (04/30/2011 1:[address] ROLLER OPERATOR) athologist Signature Lab Glucose 211 (H) 60 - 100 HP CONVERSION mg/dL Specimen Anatomical Collection Method Collection Time Receive d Time (Source) Location / / Volume Laterality 04/30/2011 1:50 PM 2 1:[address] ROLLER OPERATOR PM ROAD ROLLER OPERATOR Celso Cronin MD LAB_1 Performing Organization Address City/[facility] Code Phon e Number HP CONVERSION Creatinine / GFR (04/30/2011 1:[address] ROLLER OPERATOR) athologist Signature Creatinine 0.8 0.4 - [...] Volume Laterality 04/30/2011 1:50 PM 2 1:[address] RO[address] ROLLER OPERATOR PM ROAD ROLLER OPERATOR Celso Cronin MD LAB_1 Performing Organization Address [facility] Phon e Number HP CONVERSION CK, Total (04/30/2011 1:[address] ROLLER OPERATOR) P athologist Signature Creatine Kinase 108 0 - 225 HP CONVERSION U/L Specimen Anatomical Collection Method Collection Time Receive d Time (Source) Location / / Volume Laterality 04/30/2011 1:50 PM 2 1:[address] RO[address] ROLLER OPERATOR PM ROAD ROLLER OPERATOR Celso Cronin MD LAB_1 Performing Organization Address [facility] Code Phon e Number HP CONVERSION BUN (04/30/2011 1:[address] ROLLER OPERATOR) P athologist Signature Blood Urea 17 5 - 26 HP CONVERSION Nitrogen mg/dL Specimen Anatomical Collection Method Collection Time Receive d Time (Source) Location / / Volume Laterality 04/30/2011 1:50 PM 2 1:[address] ROLLER OPERATOR PM ROAD ROLLER OPERATOR Celso Cronin MD LAB_1 Performing Organization Address [facility] Phon e Number HP CONVERSION Cardiac Cath Procedure (04/30/2011 1:[address] ROLLER OPERATOR) Specimen (Source) Anatomical Collection Method Collection Time Re ceived Time Location / / Volume Laterality 04/30/2011 1:[address] ROLLER OPERATOR Narrative PN CENTRICITY - 04/30/2011 1:[address] ROLLER OPERATOR SHARLENE KRISHNAMURTHY ?? [id number] Cardiac Catheterization : 1970 Age: 41 years Gender: Male Study date: 04/30/2011 Test time: 15:27 - 15:59 Fluoro time: 6.6 min PPH Staff: ??Antoinette Olivera RN Diagnostic Globe Tester: ??DEMARIO MCINTYRE MD Golf Course Ranger: ??Brandon Ta Scrub: ??Katie Holder Monitor: ??Zoie Kumar RCVT X-ray Tech: ??Daniela Robles RT Ordering Physician: ??Franck TAYLOR Golf Course Ranger: ??Harmony Newton RNsequins slingerRestaurant Cashier: ??FLORENCE MCINTYRE MD Referring Physician 1: ??ROLANDO [...] obtained. The patient was brought to the laborer shipyard and placed on the table. The planned [...] lesion. Vessel setup was performed. A JR4 [employer] g catheter was used to intubate the vessel. Balloon angioplasty was performed, using a 2.5 x 15 NC [employer] balloon, with 2 inflations and a maximum [...] 17:21:22 PPH Staff: Antoinette Olivera RN Diagnostic Globe Tester: DEMARIO MCINTYRE Golf Course Ranger: Brandon Ta Scrub: Katie Holder Monitor: Zoie KumarVT X-ray Tech: Daniela Robles Ordering Physician: Franck TAYLOR MD Golf Course Ranger: Harmony Newton RNsequins slingerRestaurant Cashier: MARGO MCINTYRE MD Referring Physician 1: ROLANDO [...] PN CARDIAC CATH ORDERABLES Performing Organization Address [facility] Phon e Number PN CENTRICITY BEDSIDE GLUCOSE MONITOR (04/30/2011 12:[address] ROLLER OPERATOR) athologist Signature Bedside Blood 242 mg/dL HP CONVERSION Glucose Test Specimen Anatomical Collection Method Collection Time Receive d Time (Source) Location / / Volume Laterality 04/30/2011 12:27 04/30/[address] ROLLER OPERATOR 12:[address] ROLLER OPERATOR Celso Cronin MD LAB_1 Performing Organization Address [facility] Phon e Number HP CONVERSION APTT (Activated Partial Thromboplastin Time) (04/30/2011 10:[address] ROLLER OPERATOR) [facility] Method Time Signature Partial 36.3 25.0 - HP CONVERSION Thromboplastin Time 38.0 sec Specimen Anatomical Collection Method Collection Time Receive d Time (Source) Location / / Volume Laterality 04/30/2011 10:52 04/30/[address] ROLLER OPERATOR 11:[address] ROLLER OPERATOR Geena Diaz MD LAB_1 Performing Organization Address [facility] Phon e Number HP CONVERSION BEDSIDE GLUCOSE MONITOR (04/30/2011 8:[address] ROLLER OPERATOR) athologist Signature Bedside Blood 274 mg/dL HP CONVERSION Glucose Test Specimen Anatomical Collection Method Collection Time Receive d Time (Source) Location / / Volume Laterality 04/30/2011 8:49 AM 2 9:01 ROAD ROLLER OPERATOR AM ROAD ROLLER OPERATOR Celso Cronin MD LAB_1 Performing Organization Address [facility] Phon e Number HP CONVERSION (ABNORMAL) Sodium (04/30/2011 3:[address] ROLLER OPERATOR) athologist Signature Sodium 133 (L) 137 - 147 HP CONVERSION mEq/L Specimen Anatomical Collection Method Collection Time Receive d Time (Source) Location / / Volume Laterality 04/30/2011 3:29 AM 2 3:41 ROAD ROLLER OPERATOR AM ROAD ROLLER OPERATOR Geena Diaz MD LAB_1 Performing Organization Address [facility] Phon e Number HP CONVERSION APTT (Activated Partial Thromboplastin Time) (04/30/2011 3:[address] ROLLER OPERATOR) Patholo gist Method Time Signature Partial 32.8 25.0 - HP CONVERSION Thromboplastin Time 38.0 sec Specimen Anatomical Collection Method Collection Time Receive d Time (Source) Location / / Volume Laterality 04/30/2011 3:29 AM 2 3:41 RO[address] ROLLER OPERATOR AM ROAD ROLLER OPERATOR Geena Diaz MD LAB_1 Performing Organization Address [facility] Phon e Number HP CONVERSION BEDSIDE GLUCOSE MONITOR (04/29/2011 9:[address] ROLLER OPERATOR) P athologist Signature Bedside Blood 294 mg/dL HP CONVERSION Glucose Test Specimen Anatomical Collection Method Collection Time Receive d Time (Source) Location / / Volume Laterality 04/29/2011 9:22 PM 2 9:00 ROAD ROLLER OPERATOR AM ROAD ROLLER OPERATOR Celso Cronin MD LAB_1 Performing Organization Address [facility] Phon e Number HP CONVERSION INR/Protime (04/29/2011 8:[address] ROLLER OPERATOR) P athologist Signature Prothrombin Time 13.8 [...] valves in the aortic position , acute ID, valvular heart disease and atrial fibril lation. Mechanical prosthetic valves, (high risk ). ? INR 2.5-3.5 Prevention of recurrent myocardial infar ct. These recommended ranges serve as guidel mike. Adjustment outside these ranges may be c linically indicated. Specimen Anatomical Collection Method Collection Time Receive d Time (Source) Location / / Volume Laterality 04/29/2011 8:14 PM 2 8:17 ROAD ROLLER OPERATOR PM ROAD ROLLER OPERATOR Fan Curry DO LAB_1 Performing Organization Address [facility] Phon e Number HP CONVERSION APTT (Activated Partial Thromboplastin Time) (04/29/2011 8:[address] ROLLER OPERATOR) [facility] gist Method Time Signature Partial 33.7 25.0 - HP CONVERSION Thromboplastin Time 38.0 sec Specimen Anatomical Collection Method Collection Time Receive d Time (Source) Location / / Volume Laterality 04/29/2011 8:14 PM 2 8:17 ROAD ROLLER OPERATOR PM ROAD ROLLER OPERATOR Fan Curry DO LAB_1 Performing Organization Address [facility] Phon e Number HP CONVERSION Platelets (04/29/2011 8:[address] ROLLER OPERATOR) athologist Signature Platelet Count 209 140 - 450 HP CONVERSION k/cmm Specimen Anatomical Collection Method Collection Time Receive d Time (Source) Location / / Volume Laterality 04/29/2011 8:14 PM 2 8:17 ROAD ROLLER OPERATOR PM ROAD ROLLER OPERATOR Fan Curry DO LAB_1 Performing Organization Address [facility] Phon e Number HP CONVERSION Creatinine / GFR (04/29/2011 8:[address] ROLLER OPERATOR) athologist Signature Creatinine 0.8 0.4 - [...] Volume Laterality 04/29/2011 8:13 PM 2 8:17 ROAD ROLLER OPERATOR PM ROAD ROLLER OPERATOR Fan Curry DO LAB_1 Performing Organization Address [facility] Phon e Number HP CONVERSION MRSA Culture (04/29/2011 8:[address] ROLLER OPERATOR) Component Value Ref Test Analysis Performed [...] / Volume Laterality Nares: 04/29/2011 8:[address] ROLLER OPERATOR Julia Covarrubias MD LAB_1 Performing Organization Address City/State/ZIP Code Phon e Number HP CONVERSION ECG 12 Lead Inpatient (04/29/2011 7:[address] ROLLER OPERATOR) P athologist Signature Ventricular Rate 84 BPM MUSE [facility] Atrial Rate 84 BPM MUSE [facility] P-R Interval 144 ms MUSE [facility] QRS Duration 96 ms MUSE [facility] QT 366 ms MUSE [facility] QTc 432 ms MUSE [facility] P [place] 44 degrees MUSE [facility] R [place] 41 degrees MUSE [facility] T [place] -33 degrees MUSE [facility] Specimen (Source) Anatomical Collection Method Collection Time Re ceived Time Location / / Volume Laterality 04/29/2011 7:[address] ROLLER OPERATOR Narrative MUSE [facility] - 07/31/2019 4:26 [...] Address City/State/ZIP Code Phon e Number MUSE [facility] [address] [place] [address] documented in this encounter Visit Diagnoses Diagnosis [...] Coronary atherosclerosis of unspecified type of vessel, augustine or graft (HRC) Coronary atherosclerosis of unspecified type of vessel, augustine or graft Laboratory examination, unspecified Acute myocardial [...] feet. documented in this encounter Care Teams Rn Transport Relationship Specialty Start Date End Date Rolando Lopez DO PCP - General 12/23/10 05/16/12 [address] [place] [address] documented as of this encounter
--- OUTSIDE RECORDS SUMMARY | 2022-02-14 15:06 | XMS_ITS | Encounter Summary ---
:1970 Author Organization [facility] Address [address] [address] Care Team Providers Name Role Phone Lilian Persaud DO Primary Care Provider Encounter Details Date Type Department Care Team Description 06/11/2011 Notes/Orders [facility] Eliana Kumar, [address] . [place] [address] Social History Tobacco Use Types Packs/Day Years Used Date Smoking Tobacco: Never Assessed Sex Assigned at Date Recorded Not on file documented as of this encounter Plan of Treatment Not on filedocumented as of this encounter Visit Diagnoses Not on filedocumented in this encounter Care Teams Dispatcher Refinery Relationship Specialty Start Date End Date Lilian Persaud DO PCP - General 12/23/10 05/16/12 1415 [place] [address] documented as of this encounter
--- OUTSIDE RECORDS SUMMARY | 2022-02-14 15:06 | XMS_ITS | Encounter Summary ---
:1970 Author Organization [employer] Address [address] [place] [address] Care Team Providers Name Role Phone Lilian Persaud DO Primary Care Provider Reason for Visit Reason Comments Diabetes WART Encounter Details Date Type Department Care Team Description 05/26/2011 Office Visit [facility] Lilian Persaud, DM w/o complication type II, uncontrolled (Primary Dx); Medicine DO Other disorders of lipoid metabolism; [address] [address] [facility] Cor athrscl-uns vessel; [place] [address] [place], [place] Plantar wart; [phone] [address] Tobacco use disorder Social History Tobacco Use Types Packs/Day Years Used Date Smoking Tobacco: Never Assessed Sex Assigned at Date Recorded Not on file documented as of this encounter Last Filed Vital Signs Vital Sign Reading Time Taken Comments Blood Pressure 124/89 05/26/2011 1:53 PM PRESCHOOL SPECIAL EDUCATION TEACHER Pulse 88 05/26/2011 1:53 PM PRESCHOOL SPECIAL EDUCATION TEACHER Temperature - - Respiratory Rate - - Oxygen Saturation - - Inhaled Oxygen Concentration - - Weight 98 kg (216 lb) 05/26/2011 1:53 PM PRESCHOOL SPECIAL EDUCATION TEACHER Height - - Body Mass Index 31.44 01/22/2011 11:08 AM CDT documented in this encounter Patient Instructions Patient InstructionsLilian Persaud DO - 05/26/2011 2:41 PM CST use Lantus 30 units at night Tue, and then call clinic Tuesday morning with Fasting blood sugarreadings Decrease Metformin to 1000 mg daily Continue all other meds at usual dose CHOOL SPECIAL EDUCATION TEACHER documented in this encounter Progress Notes Lilian [...] DESTRUCT BENIGN SKIN LESIONS UP TO 14 [address] Tobacco use disorder - nicotine (NICODERM CQ) [...] patches prescribed and signed for him to olive picker as needed. Patient aware of cessation plan [...] Coronary atherosclerosis of unspecified type of vessel, burns paiute or graft (HRC) Coronary atherosclerosis of unspecified type of vessel, burns paiute or graft Plantar wart Tobacco use disorder (HRC) Tobacco use disorder documented in this encounter Care Teams Office Secretary Relationship Specialty Start Date End Date Lilian Persaud DO PCP - General 12/23/10 05/16/12 [address]29 [place] [address] documented as of this encounter
--- OUTSIDE RECORDS SUMMARY | 2022-02-14 15:06 | XMS_ITS | Encounter Summary ---
:1970 Author Organization [employer] Address [address] [place] [address] Care Team Providers Name Role Phone Lilian Persaud DO Primary Care Provider Reason for Visit Reason Comments RESULTS, TEST Encounter Details Date Type Department Care Team Description 06/08/2011 Notes/Orders Lilian Camejo yceridemia Medicine DO [place] (Primary Dx) [address] [address] [facility] [place] [address] [place], [place] [phone] Social History Tobacco Use Types Packs/Day Years [...] 06/11/2011 9:38 AM CST Noted changes. Thanks! HANDISER SEASONAL Eliana Kumar RN - 06/10/2011 10:28 AM CST Pt. informed and med list updated and new RX faxed. HANDISER SEASONAL Vanessa Ram PA-C - 06/09/2011 11:42 PM CST Keri, please advise that he increase his fish oil to 2 capsules twice a day along with the increase in Lipitor. Also remind him that improved glucose control with help decrease his triglycerides as they are made of sugars and fats. Thanks! Vanessa Mayo PA-C - 06/09/2011 11:39 PM CST 1. Keir, please confirm his medications. Gemfibrozil was not [...] we discussed at his recent visit. Thanks! HANDISER SEASONAL Eliana Kumar, RN - 06/09/2011 11:44 AM CST I reviewed medications with Timur and he is not taking the Gemfibrozil . His fish oil is actuallya rx he said and is taking as listed on the med list fish oil 340-1,000 and he takes 2 a day. Did you want him to increase that rx? Thanks HANDISER SEASONAL documented in this encounter Plan of Treatment Not on filedocumented as of this encounter Visit Diagnoses Diagnosis Hypertriglyceridemia (HRC) - Primary Pure hyperglyceridemia documented in this encounter Care Teams Dragline Oiler Relationship Specialty Start Date End Date Lilian Persaud DO PCP - General 12/23/10 05/16/12 [facility]5 [place] [address] documented as of this encounter
--- OUTSIDE RECORDS SUMMARY | 2022-02-14 15:06 | XMS_ITS | Encounter Summary ---
:1970 Author Organization [employer] Address [address] [place] [address] Care Team Providers Name Role Phone Lliian Persaud DO Primary Care Provider Reason for Visit Reason Comments Information Encounter Details Date Type Department Care Team Description 06/25/2011 Telephone [employer] [facility] Lilian Persaud DO Information [address] [address] [place] [address] [place] [address] [phone] (Wo rk) Social History Tobacco Use Types Packs/Day Years Used Date Smoking Tobacco: Never Assessed Sex Assigned at Date Recorded Not on file documented as of this encounter Nursing Notes Jacqueline Herrera LPN - 06/25/2011 3:26 PM CST LM with info. RACT MAKER Lilian Persaud DO - 06/25/2011 1:49 PM CST Looking back on notes, his sugars are finally starting to come down. Have pt increase Lantus to 75 units subcutaneous at hs. Have pt increase Novolog at 28 units tid with meals. Call Tuesday with BS readings. RACT MAKER Tatyana Christian RN - 06/25/2011 11:11 AM CST Spoke with pt. Pt is calling to give Dr. Persaud updated blood glucose readings 06/22 282 am, 330 @4-5 pm, 370 @bedtime. 178 am, 268 @4-5pm and 341 @bedtime, 06/23 224 am, 279 @4-5 pm 331 @bedtime. Today 06/24 231 am. Please call pt back with plan. RACT MAKER Joellen Holm. - 06/25/2011 11:03 AM CST Non -Symptom Message from Front Line Primary Care Provider: Lilian Persaud DO Message: pt calling to give blood sugar test results to nurse. RACT MAKER documented in this encounter Plan of Treatment Not on filedocumented as of this encounter Visit Diagnoses Diagnosis Type II or unspecified type diabetes jasen litus without mention of complication, uncontrolled - Primary documented in this encounter Care Teams Space Operations Officer Relationship Specialty Start Date End Date Lilian Persaud DO PCP - General 12/23/10 05/16/12 1415 [place] [address] documented as of this encounter
--- OUTSIDE RECORDS SUMMARY | 2022-02-14 15:06 | XMS_ITS | Encounter Summary ---
:1970 Author Organization [employer] Address [address] [place] [address] Care Team Providers Name Role Phone Lilian Persaud DO Primary Care Provider Reason for Visit Reason Comments Appt. Work In Request Encounter Details Date Type Department Care Team Description 05/20/2011 Telephone [facility] Lilian Persaud, Appt. W ork In Request Medicine DO [address] [facility] . [address] [place] [address] [place] [address] [phone] (Wo rk) Social History Tobacco Use Types [...] Lori is requesting referral for IDC from Kaor Persaud venkat. Please enter referral, then forward message forwarded to IDC nursing venkat. DIALYSIS PATIENT CARE SPECIALIST Lilian Persaud DO - 05/21/2011 8:51 AM CST Unable to do apwi today, please schedule for next week. Pt has seen IDC, please forward note and have pt discuss changing insulin with them in meantime. DIALYSIS PATIENT CARE SPECIALIST Maximilian Ag - 05/20/2011 8:17 AM CST Patient calling requesting work-in to discuss diabetic medications Asymptomatic but blood sugars have been running 250-300 while on Novolog Also taking Metformin XR Afebrile No vomiting ,dizziness,blurred vision Declined appt offered today Aware clincian will address 05/21 Call [phone] DIALYSIS PATIENT CARE SPECIALIST Wendy Montgomery - 05/20/2011 7:24 AM CST Front Line Sx Call Primary Vice President For Philanthropy: Lilian Persaud DO Reason for call/symptom: Pt is requesting to be worked in amar[place]. Tuesday05/21/11 with Noni Persaud re: Bloodsugar concerns and cholesterol med ck . Would like to discuss adjusting his diab meds . Pt just requested also to make a future appt . Pls call pt back DIALYSIS PATIENT CARE SPECIALIST documented in this encounter Plan of Treatment Not on filedocumented as of this encounter Visit Diagnoses Not on filedocumented in this encounter Care Teams Helpdesk Administrator Relationship Specialty Start Date End Date Lilian Persaud DO PCP - General 12/23/10 05/16/12 [address]15 [place] [address] documented as of this encounter
--- OUTSIDE RECORDS SUMMARY | 2022-02-14 15:06 | XMS_ITS | Encounter Summary ---
:1970 Author Organization [employer] Address [address] [place] [address] Care Team Providers Name Role Phone Lilian Persaud DO Primary Care Provider Reason for Visit Reason Comments Diabetes Encounter Details Date Type Department Care Team Description 06/29/2011 [facility] Lilian Persaud DO Diabetes [address] [address] [place] [address] [place] [address] [phone] (Wo rk) Social History Tobacco Use Types Packs/Day Years Used Date Smoking Tobacco: Never Assessed Sex Assigned at Date Recorded Not on file documented as of this encounter Nursing Notes Freya Hess - 06/29/2011 1:26 PM CST Notified pt. of notes below. Pt. understood and acknowledged information. And confirmed that he willbe going to his Endocrine appt on 07/05 at 4:30pm L MACHINE SETTER Lilian Persaud DO - 06/29/2011 12:57 PM [...] may be a factor with sugar management. L MACHINE SETTER Sarah Leon - 06/29/2011 10:28 AM CST [...] you have any new instructions or not L MACHINE SETTER Jo Cruz - 06/29/2011 10:21 AM CST Non -Symptom Message from Front Line Primary Care Provider: Lilian Persaud DO Message: Pt requesting to speak with a nurse regarding his diabetes. L MACHINE SETTER documented in this encounter Plan of Treatment Not on filedocumented as of this encounter Visit Diagnoses Diagnosis Type II or unspecified type diabetes jasen litus without mention of complication, uncontrolled - Primary documented in this encounter Care Teams Gas Meter Prover Relationship Specialty Start Date End Date Lilian Persaud DO PCP - General 12/23/10 05/16/12 1415 [place] [address] documented as of this encounter
--- OUTSIDE RECORDS SUMMARY | 2022-02-14 15:06 | XMS_ITS | Encounter Summary ---
:1970 Author Organization [employer] Address [address] [address] Care Team Providers Name Role Phone Cori Lilian Luther DO Primary Care Provider Encounter Details Date Type Department Care Team Description 04/29/2011 Hospital Encounter Heart & [facility] MD Simi Echocardiogram [address] [facility] [address] [place] [address] [phone] Social History Tobacco Use Types Packs/Day Years [...] respiration Re sults for this ECHOCARDIOGRAM PM FLOORING MECHANIC procedure are in the results section. documented in this encounter Results Outreach Stress Echocardioram (04/29/2011 4:28 PM FLOORING MECHANIC) Specimen (Source) Anatomical Location Collection Method / Collectio n Time Received Time / Laterality Volume Narrative HP CONVERSION - 04/29/2011 4:28 PM FLOORING MECHANIC See results in APPS: [employer] Brisa Negrete MD PN ECHO ORDERABLES Performing Organization Address City/State/ZIP Code Phon e Number HP CONVERSION documented in this encounter Visit Diagnoses Diagnosis Painful respiration documented in this encounter Care Teams Cardiology Nurse Relationship Specialty Start Date End Date Lilian Persaud DO PCP - General 12/23/10 05/16/12 [address] [place] [address] documented as of this encounter
--- OUTSIDE RECORDS SUMMARY | 2022-02-14 15:06 | XMS_ITS | Encounter Summary ---
:1970 Author Organization [employer] Address [address] [place] [address] Care Team Providers Name Role Phone Lilian Persaud DO Primary Care Provider Reason for Visit Reason Comments Refill Encounter Details Date Type Department Care Team Description 06/09/[address] [facility] Lilian Persaud, Refill [address] [address] [place] [address] [place] [address] [phone] (Wo rk) Social History Tobacco Use Types [...] cardiology to review refill request on Plavix. ING SUBCONTRACTOR Lilian Persaud DO - 06/11/2011 9:44 AM CST diabetes med and cholesterol med refilled. Plavix refill needs to go to cardiology. ING SUBCONTRACTOR Sarah Leon - 06/10/2011 8:[address] Persaud to review refills of metformin, fenofibrate, plavix. plavix is not on RN list of refills. pt recently seen by cardiology. due for labs - orders in computer documented in this encounter Plan of Treatment Not on filedocumented as of this encounter Visit Diagnoses Not on filedocumented in this encounter Care Teams In Shop Service Technician Relationship Specialty Start Date End Date Lilian Persaud DO PCP - General 12/23/10 05/16/12 [address]15 [place] [address] documented as of this encounter
--- OUTSIDE RECORDS SUMMARY | 2022-02-14 15:06 | XMS_ITS | Encounter Summary ---
:1970 Author Organization [employer] Address [address] [address] Care Team Providers Name Role Phone Rolando Lopez DO Primary Care Provider Reason for Referral Specialty Diagnoses / Procedures Referred By Contact [place] [address] [place] [address] Referral ID Status Reason Start Date Expiration Date Visits Requ ested Visits Authorized Reason for Visit Reason Comments Diabetes Encounter Details Date Type Department Care Team Description 07/06/2011 Initial Consult [facility] [address] Ceci Calhoun DM w/o complication Endocrinology MD Simi type II, uncontrolled [address] [place] [address] (Primary Dx) [place] [id number] Social History Tobacco Use Types Packs/Day Years [...] Body Mass Index 32.11 06/07/2011 10:38 AM SWITCH TECHNICIAN documented in this encounter Progress Notes Ceci Calhoun MD - 07/06/2011 6:00 PM CDT Progress Notes signed by Ceci Calhoun MD at 07/23/11 5148 Author: Ceci Calhoun MD Service: (none) Author Type: Physician Filed: 07/23/11 0350 Note Time: 07/06/11 1800 Status: Signed Special Distribution Clerk: Ceci Calhoun MD (Physician) NAME: SHARLENE KRISHNAMURTHY MR#: [id number] CSN: [id number] AUTHENTICATING CLINICIAN: Ceci Calhoun MD CONFIRM #: [id number] LOC: 432 CLINIC PROGRESS NOTE DATE OF [...] 50 above 150. CC: ROLANDO LOPEZ, [address] [place] [address] RMM:MEDQ C: CONFIRM #: [id number] documented in this encounter Plan of Treatment [...] HEMOGLOBIN (HGB A1C) (07/06/2011 4:50 PM CDT) [employer] Method Time Signature Hemoglobin A1C, 10.6 (A) [...] Primary documented in this encounter Care Teams Dictating Machine Typist Relationship Specialty Start Date End Date Rolando Lopez DO PCP - General 12/23/10 05/16/12 [address]15 [place] [address] documented as of this encounter
--- OUTSIDE RECORDS SUMMARY | 2022-02-14 15:06 | XMS_ITS | Encounter Summary ---
:1970 Author Organization [employer] Address [address] [place] [address] Care Team Providers Name Role Phone Lilian Persaud DO Primary Care Provider Reason for Visit Reason Comments Chest Pain Encounter Details Date Type Department Care Team Description 05/13/2011 Nurse Triage [facility] Lilian Persaud DO Chest Pain [address] [address] [place] [address] [place] [address] [phone] (Wo rk) Social History Tobacco Use Types Packs/Day Years Used Date Smoking Tobacco: Never Assessed Sex Assigned at Date Recorded Not on file documented as of this encounter Nursing Notes Griselda Ventura RN - 05/13/2011 7:59 PM CST patient calling telling me he recently had an CA and stint. Started with chest pain 5 minutes ago and feels a bit sob. Talking in full sentences and with him. Asked him to hang up and call 911. [place] they live one [place] from [facility] and can drive him as it may be faster than 911. I told him ONLY if they left Immediately. will take him now. Protocol: CHEST [id number] Affirmative: [1] Chest pain lasting > 5 minutes AND [2] history of heart disease (e.g., heart attack, bypass surgery, angina, angioplasty) Disposition of Call 911 suggested. documented in this encounter Plan of Treatment Not on filedocumented as of this encounter Visit Diagnoses Not on filedocumented in this encounter Care Teams Templer Head Relationship Specialty Start Date End Date Lilian Persaud DO PCP - General 12/23/10 05/16/12 [address] [place] [address] documented as of this encounter
--- OUTSIDE RECORDS SUMMARY | 2022-02-14 15:06 | XMS_ITS | Encounter Summary ---
:1970 Author Organization [employer] Address [address] [place] [address] Care Team Providers Name Role Phone Lilian Persaud DO Primary Care Provider Reason for Visit Reason Comments UPDATE Encounter Details Date Type Department Care Team Description 06/04/2011 Telephone [facility] Lilian Persaud DO UPDATE [address] [address] [place] [address] [place] [address] [phone] (Wo rk) Social History Tobacco Use Types [...] on Tuesday morning with update. Pt agreed. ER DISTILLER OPERATOR Lilian Persaud DO - 06/04/2011 4:16 PM CST Have patient increase Lantus to 40 units (was 35 units) subcutaneous every HS. Also, increase Novolog to 10 units (was 9 units) TID with meals. Call Tuesday 2/13 am with BS readings. Further increase to be determined at that time. ER DISTILLER OPERATOR Judy Pittman, JOSETTE - 06/04/2011 4:03 PM [...] if insulin needs to be adjusted again. ER DISTILLER OPERATOR Gladys Granger - 06/04/2011 3:42 PM CST Non -Symptom Message from Front Line Primary Care Provider: Lilian Persaud DO Message: Pt is calling to leave his Blood Sugar levels from the last 3 days: Friday 06/02: AM-268 PM-315 Night- 06/03: AM -295 PM- 320 Night- 06/04: AM- 291 ER DISTILLER OPERATOR documented in this encounter Plan of Treatment Not on filedocumented as of this encounter Visit Diagnoses Diagnosis Type II or unspecified type diabetes jasen litus without mention of complication, uncontrolled - Primary documented in this encounter Care Teams Golf Ball Trimmer Relationship Specialty Start Date End Date Lilian Persaud DO PCP - General 12/23/10 05/16/12 [address] [place] [address] documented as of this encounter
--- OUTSIDE RECORDS SUMMARY | 2022-02-14 15:06 | XMS_ITS | Encounter Summary ---
:1970 Author Organization [employer] Address [address] [place] [address] Care Team Providers Name Role Phone Lilian Persaud DO Primary Care Provider Reason for Visit Reason Comments Medication Problems Encounter Details Date Type Department Care Team Description 07/27/2011 Refill [facility] Lilian Persaud DO Medication Problems [address] [address] [place] [address] [place] [address] [phone] (Wo rk) Social History Tobacco Use Types [...] regarding insulin. Its $[address] [facility] [place] there are 1000 units in each vial. Please have Dr Persaud call back as to what is decided regarding his insulin. Lilian Castillo DO - 07/28/2011 3:05 PM CDT I spoke with nurse educator who rec trying [facility] for generic low cost insulin. She also rec writing for a larger vial of insulin quantity to only have 1 co-pay. I relayed this info to the pt, he doesn't have co-pays at this point, he pays entirely for his meds.He was advised to call [facility] and check in to cheapest insulin available and I will rx new insulin. I did look online to see if I could get prices, but not available. Pt will call back with any questions. I will await his call for insulin info and then do new rx. Lilian Castillo DO - 07/28/2011 11:09 AM CDT spoke with member of [facility] education, awaiting call back from nurse to provide info for pt. She thinks [facility] has free assistance. Lilian Castillo DO - [...] Primary documented in this encounter Care Teams Construction Area Manager Relationship Specialty Start Date End Date Lilian Persaud DO PCP - General 12/23/10 05/16/12 [address] [place] [address] documented as of this encounter
--- OUTSIDE RECORDS SUMMARY | 2022-02-14 15:06 | XMS_ITS | Encounter Summary ---
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 [place], [place] Cor athrscl-uns vessel [facility] [address] [place] [address] [phone] Social History Tobacco Use Types Packs/Day Years Used Date Smoking Tobacco: Never Assessed Sex Assigned at Date Recorded Not on file documented as of this encounter Last Filed Vital Signs Vital Sign Reading Time Taken Comments Blood Pressure 146/84 05/14/2011 11:00 AM TEST HOLE DRILLER Pulse 74 05/14/2011 11:00 AM TEST HOLE DRILLER Temperature 36.7 ??C (98.1 ??F) 05/14/2011 11:00 AM TEST HOLE DRILLER Respiratory Rate 18 05/14/2011 11:00 AM TEST HOLE DRILLER Oxygen Saturation 96% 05/14/2011 11:00 AM TEST HOLE DRILLER Inhaled Oxygen Concentration - - Weight 101.5 kg (223 lb 12.3 oz) 05/14/2011 11:00 AM TEST HOLE DRILLER Height - - Body Mass Index 32.57 [...] before Tuesday, will continue education at [facility]. Cordelia Ledesma RD, CDE Johnnie Ruggiero MD [...] management re CAD. Johnnie Ruggiero M.D. Pager: [phone] Rolando Villegas RN - 05/14/2011 11:43 AM CST Preparing patient for coronary angiogram scheduled later today. Reports he had his daily ASA and Plavix already this morning. Declines to watch video, had an angio two weeks ago and remembers procedurewell. Verbalizes that he hopes to discharge home after angio today. Requesting nicotine patch, reports he quit smoking two weeks ago after GA and has been having good results with [...] Primary Care Provider: Rolando Lopez DO Primary Director Pharmacy Services: Scar Isaacs MD History of Present Illness: [...] time and resolved with morhpine in the [place] ER. He was admitted there, and transferred [...] 250.02 ??? Erectile dysfunction 607.84D ??? Acute GA 410.90BQ ??? 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 History Social [...] time. Thank You, Fabian Gutierrez MD Cardiology [facility] [place]. HOLE DRILLER documented in this encounter Miscellaneous Notes Medication [...] Date:05/14/11, End Date:-, Frequency:- *No Administrations Recorded HOLE DRILLER documented in this encounter Plan of Treatment Not on filedocumented as of this encounter Procedures Procedure Name Priority Date/Time Associated Diagnosis Comme nts BEDSIDE GLUCOSE Routine 05/14/2011 1:04 PM Result s for this MONITOR POCT TEST HOLE DRILLER procedure are i n the results section. CARDIAC CATH Routine 05/14/2011 12:53 PM Results for this PROCEDURE TEST HOLE DRILLER procedure are i n the results section. ECG 12 LEAD Routine 05/14/2011 12:48 PM Results for this INPATIENT TEST HOLE DRILLER procedure are i n the results section. XR CHEST 2 VIEWS STAT 05/14/2011 12:36 PM Resu lts for this TEST HOLE DRILLER procedure are i n the results section. CARD PROF ANDRES 90 STAT 05/14/2011 12:28 PM Re sults for this MIN TEST HOLE DRILLER procedure are i n the results section. CARDIAC MARKER STAT 05/14/2011 11:38 AM Result s for this PROFILE TEST HOLE DRILLER procedure are i n the results section. CK, TOTAL STAT 05/14/2011 11:38 AM Results for this TEST HOLE DRILLER procedure are i n the results section. documented in this encounter Results BEDSIDE GLUCOSE MONITOR (05/14/2011 1:04 PM TEST HOLE DRILLER) P athologist Signature Bedside Blood 290 mg/dL HP CONVERSION Glucose Test Specimen Anatomical Collection Method Collection Time Receive d Time (Source) Location / / Volume Laterality 05/14/2011 1:04 PM 2 1:25 TEST HOLE DRILLER PM TEST HOLE DRILLER Steve More MD LAB_1 Performing Organization Address City/State/ZIP Code Phon e Number HP CONVERSION Cardiac Cath Procedure (05/14/2011 12:53 PM TEST HOLE DRILLER) Specimen (Source) Anatomical Collection Method Collection Time Re ceived Time Location / / Volume Laterality 05/14/2011 12:53 PM TEST HOLE DRILLER Narrative PN CENTRICITY - 05/14/2011 12:53 PM TEST HOLE DRILLER SHARLENE KRISHNAMURTHY ?? [id number] Cardiac Catheterization : 1970 Age: 41 years Gender: Male Study date: 05/14/2011 Test time: 14:22 - 14:40 Fluoro time: 1.9 min PPH Staff: ??Antoinette Olivera RN Diagnostic Director Pharmacy Services: ??ARTIE RUGGIERO MD Medical Radiation Therapist: ??Ceci Bowles Scrub: ??Julia Che RN Monitor: [...] obtained. The patient was brought to the catheter builder and placed on the table. The planned [...] 17:06:24 PPH Staff: Antoinette Olivera RN Diagnostic Director Pharmacy Services: JOHNNIE RUGGIERO MD Medical Radiation Therapist: Ceci Bowles Scrub: Julia Che RN Monitor: [...] ECG 12 Lead Inpatient (05/14/2011 12:48 PM TEST HOLE DRILLER) P athologist Signature Ventricular Rate 71 BPM MUSE GHP Atrial Rate 71 BPM MUSE GHP P-R Interval 142 ms MUSE GHP QRS Duration 94 ms MUSE GHP QT 388 ms MUSE GHP QTc 421 ms MUSE GHP P [place] 28 degrees MUSE GHP R [place] 12 degrees MUSE GHP T [place] -2 degrees MUSE GHP Specimen (Source) Anatomical Collection Method Collection Time Re ceived Time Location / / Volume Laterality 05/14/2011 12:48 PM TEST HOLE DRILLER Narrative MUSE GHP - 07/31/2019 3:12 PM [...] e Number MUSE GHP [address] [place] [address] XR Chest 2 Views (05/14/2011 12:36 PM TEST HOLE DRILLER) Anatomical Region Laterality Modality Chest, Lung Other Specimen (Source) Anatomical Location Collection Method / Collectio n Time Received Time / Laterality Volume Impressions 05/14/2011 12:42 PM TEST HOLE DRILLER IMPRESSION: ??Negative PA and left later al chest. Narrative 05/14/2011 12:42 PM TEST HOLE DRILLER HISTORY: ??chest pain COMPARISON: ??None. FINDINGS: ??Two [...] PROF TROPI 90 MIN (05/14/2011 12:28 PM TEST HOLE DRILLER) athologist Signature Tropi at 90 Min <0.05 0.00 - HP CONVERSION 0.04 ng/mL Specimen Anatomical Collection Method Collection Time Receive d Time (Source) Location / / Volume Laterality 05/14/2011 12:28 05/14/2011 PM TEST HOLE DRILLER 12:39 PM TEST HOLE DRILLER Steve More MD LAB_1 Performing Organization Address [facility] Phon e Number HP CONVERSION CK, Total (05/14/2011 11:38 AM TEST HOLE DRILLER) athologist Signature Creatine Kinase 85 0 - 225 HP CONVERSION U/L Specimen Anatomical Collection Method Collection Time Receive d Time (Source) Location / / Volume Laterality 05/14/2011 11:38 05/14/2011 AM TEST HOLE DRILLER 11:42 AM TEST HOLE DRILLER Steve More MD LAB_1 Performing Organization Address [facility] Phon e Number HP CONVERSION CARDIAC MARKER PROFILE (05/14/2011 11:38 AM TEST HOLE DRILLER) athologist Signature TROPONIN I <0.05 0.00 - 0.04 HP CONVERSION ng/mL Specimen Anatomical Collection Method Collection Time Receive d Time (Source) Location / / Volume Laterality 05/14/2011 11:38 05/14/2011 AM TEST HOLE DRILLER 11:42 AM TEST HOLE DRILLER Steve More MD LAB_1 Performing Organization Address [facility] Phon e Number HP CONVERSION documented in this encounter Visit Diagnoses Diagnosis 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 Hypertriglyceridemia (HRC) Pure hyperglyceridemia DM (diabetes mellitus) type II uncontrol led with renal manifestation Type II or unspecified type diabetes jasen litus with renal manifestations, uncontrolled Laboratory examination, unspecified Coronary atherosclerosis of unspecified type of vessel, [place] or graft (HRC) Coronary atherosclerosis of unspecified type of vessel, [place] or graft documented in this encounter Care Teams Appian Developer Relationship Specialty Start Date End Date Rolando Lopez DO PCP - General 12/23/10 05/16/12 [address] [place] [address] documented as of this encounter
--- OUTSIDE RECORDS SUMMARY | 2022-02-14 15:06 | XMS_ITS | Encounter Summary ---
:1970 Author Organization [facility] Address [address] [place] [address] Care Team Providers Name Role Phone Rolando Lopez DO Primary Care Provider Reason for Visit Reason Comments Pharmacy Encounter Details Date Type Department Care Team Description 07/13/2011 [facility], Pharmacy [address] [facility] . [address] [place] [address] [place] [address] [phone] (Wo rk) Social History Tobacco Use Types [...] LOPEZ Ordering User: VICKY LEYVA Resent to [employer] as ordered. IT Joellen Holm - 07/13/2011 [...] Primary documented in this encounter Care Teams Ski Maker Wood Relationship Specialty Start Date End Date Rolando Lopez DO PCP - General 12/23/10 05/16/12 [address] [place] [place] [address] documented as of this encounter
--- OUTSIDE RECORDS SUMMARY | 2022-02-14 15:06 | XMS_ITS | Encounter Summary ---
:1970 Author Organization [facility] Address [address], [place] [address] Care Team Providers Name Role Phone Lilian Persaud DO Primary Care Provider Reason for Visit Reason Comments Refill Encounter Details Date Type Department Care Team Description 07/27/2011 Refill [facility] [address] Rosalinda Calhoun cca, MD Refill Endocrinology [address] [facility] [address] [place] [address] [place] [address] [phone] Social History Tobacco Use Types Packs/Day Years [...] Primary documented in this encounter Care Teams Pourer Crane Ladle Relationship Specialty Start Date End Date Lilian Persaud DO PCP - General 12/23/10 05/16/12 [address] [place] [address] documented as of this encounter
--- OUTSIDE RECORDS SUMMARY | 2022-02-14 15:07 | XMS_ITS | Encounter Summary ---
:1970 Author Organization [facility] Address [address], [place] [address] Care Team Providers Name Role Phone Lilian Persaud DO Primary Care Provider Reason for Visit Reason Comments Refill Encounter Details Date Type Department Care Team Description 02/17/2011 Refill [facility] Lilian Persaud DO Refill [address] [facility] . [address] [address] [place] [address] [address] [place] [address] [phone] (Wo rk) Social History Tobacco Use Types Packs/Day Years Used Date Smoking Tobacco: Never Assessed Sex Assigned at Date Recorded Not on file documented as of this encounter Plan of Treatment Not on filedocumented as of this encounter Visit Diagnoses Not on filedocumented in this encounter Care Teams Measurement And Sensing Technician Relationship Specialty Start Date End Date Lilian Persaud DO PCP - General 12/23/10 05/16/12 1415 [place] [address] documented as of this encounter
--- OUTSIDE RECORDS SUMMARY | 2022-02-14 15:07 | XMS_ITS | Encounter Summary ---
:1970 Author Organization [employer] Address [address] [place] [address] Care Team Providers Name Role Phone Lilian Persaud DO Primary Care Provider Reason for Visit Reason Comments Diabetes Vomiting SWELLING, FOOT Encounter Details Date Type Department Care Team Description 03/17/2011 Office Visit Lilian Camejo, Paolo franco isorders of lipoid metabolism (Primary Dx); Medicine DO DM w/o complication type II, uncontrolle d; [address] Vomiting alone; [place] [address] [place], [place] Plantar wart [phone] Social History Tobacco Use Types Packs/Day Years Used Date Smoking Tobacco: Never Assessed Sex Assigned at Date Recorded Not on file documented as of this encounter Last Filed Vital Signs Vital Sign Reading Time Taken Comments Blood Pressure 112/64 03/17/2011 1:54 PM ASSISTANT PROFESSOR OF EDUCATION Pulse 70 03/17/2011 1:54 PM ASSISTANT PROFESSOR OF EDUCATION Temperature - - Respiratory Rate - - Oxygen Saturation - - Inhaled Oxygen Concentration - - Weight 101.6 kg (224 lb) 03/17/2011 1:54 PM ASSISTANT PROFESSOR OF EDUCATION Height - - Body Mass Index 32.6 01/22/2011 11:08 AM CDT documented in this encounter Patient Instructions Patient InstructionsLilian Persaud DO - 03/17/2011 3:08 PM CST Come in fasting for cholesterol and other blood work in the next 1-2 weeks. Follow up 2 weeks for plantar wart treatment Follow up 1 month for diabetes check STANT PROFESSOR OF EDUCATION documented in this encounter Progress Notes Lilian [...] DESTRUCT BENIGN SKIN LESIONS UP TO 14 [id number] 1. Vomiting may be a side effect [...] alternatives discussed for plantar wart treatment, including clix-fea-giboqav therapies, cantharidin, injections, cryotherapy and salicylic acid. [...] wart documented in this encounter Care Teams American Studies Professor Relationship Specialty Start Date End Date Lilian Persaud DO PCP - General 12/23/10 05/16/12 [address] [address] [place], [place] [address] documented as of this encounter
--- OUTSIDE RECORDS SUMMARY | 2022-02-14 15:07 | XMS_ITS | Encounter Summary ---
:1970 Author Organization [employer] Address [address] [place] [address] Care Team Providers Name Role Phone Lilian Persaud DO Primary Care Provider Reason for Visit Reason Comments Refill Encounter Details Date Type Department Care Team Description 03/16/2011 Refill [facility] Lilian Persaud DO Refill [address] [address] [place] [address] [place] [address] [phone] (Wo rk) Social History Tobacco Use Types Packs/Day Years Used Date Smoking Tobacco: Never Assessed Sex Assigned at Date Recorded Not on file documented as of this encounter Nursing Notes Lilian Persaud DO - 03/17/2011 8:11 AM CST pt has an appt this afternoon at 2 pm. I will address refills at ov. MACHINE OPERATOR Maximilian Ag - 03/17/2011 7:40 AM CST last OV for diabetes 01/22/11 with recheck directed in 6 weeks but no protocol labs listed To primary documented in this encounter Plan of Treatment Not on filedocumented as of this encounter Visit Diagnoses Not on filedocumented in this encounter Care Teams Wafer Machine Operator Relationship Specialty Start Date End Date Lilian Persaud DO PCP - General 12/23/10 05/16/12 [address] [place], [place] [address] documented as of this encounter
--- OUTSIDE RECORDS SUMMARY | 2022-02-14 15:07 | XMS_ITS | Encounter Summary ---
:1970 Author Organization [facility] Address [address] [address] Care Team Providers Name Role Phone Antonio Jerez MD Primary Care Provider Encounter Details Date Type Department Care Team Description 12/12/2009 PN Conversion Only SABIANIST CONVERSION Social History Tobacco Use Types Packs/Day Years Used Date Smoking Tobacco: Never Assessed Sex Assigned at Date Recorded Not on file documented as of this encounter Plan of Treatment Not on filedocumented as of this encounter Visit Diagnoses Not on filedocumented in this encounter Care Teams Wind Farm Engineer Relationship Specialty Start Date End Date Antonio Jerez MD PCP - General 07/25/10 12/22/[address] [place] [address] documented as of this encounter
--- OUTSIDE RECORDS SUMMARY | 2022-02-14 15:07 | XMS_ITS | Encounter Summary ---
:1970 Author Organization [facility] Address [address] [address] Care Team Providers Name Role Phone Antonio Jerez MD Primary Care Provider Encounter Details Date Type Department Care Team Description 06/19/2010 PN Conversion Only CAROLINE CONVERSION Arina Huff, [address] [place] [address] Social History Tobacco Use Types Packs/Day Years Used Date Smoking Tobacco: Never Assessed Sex Assigned at Date Recorded Not on file documented as of this encounter Plan of Treatment Not on filedocumented as of this encounter Visit Diagnoses Not on filedocumented in this encounter Care Teams Acquisitions Assistant Relationship Specialty Start Date End Date Antonio Jerez MD PCP - General 07/25/10 12/22/10 [address] [place] [address] [id number] documented as of this encounter
--- OUTSIDE RECORDS SUMMARY | 2022-02-14 15:07 | XMS_ITS | Encounter Summary ---
:1970 [address] [facility] Address [address] [place] [address] Care Team Providers Name Role Phone Antonio Jerez MD Primary Care Provider Encounter Details Date Type Department Care Team Description 11/25/2010 Notes/Orders Lilian Camejo, DM w/o complication Medicine DO type II, uncontrolled [address] [facility] [address] [facility] [address] (Primary Dx) [place] [address] [place], [place] [phone] [address] Social History Tobacco Use Types Packs/Day Years Used Date Smoking Tobacco: Never Assessed Sex Assigned at Date Recorded Not on file documented as of this encounter Plan of Treatment Not on filedocumented as of this encounter Visit Diagnoses Diagnosis Type II or unspecified type diabetes jasen litus without mention of complication, uncontrolled - Primary documented in this encounter Care Teams Pressure Washer Relationship Specialty Start Date End Date Antonio Jerez MD PCP - General 07/25/10 12/22/10 [address] [facility] [place] [address] documented as of this encounter
--- OUTSIDE RECORDS SUMMARY | 2022-02-14 15:07 | XMS_ITS | Encounter Summary ---
:1970 Author Organization [facility] Address [address] [place] [address] Care Team Providers Name Role Phone Lilian Persaud DO Primary Care Provider Encounter Details Date Type Department Care Team Description 01/22/2011 Notes/Orders Lilian Camejo, Pure hyperglyceridemia; Medicine DO DM w/o complication type II, uncontrolle d [address] [facility] [address] [place] [address] [place], [place] [phone] [address] Social History Tobacco Use Types Packs/Day Years Used Date Smoking Tobacco: Never Assessed Sex Assigned at Date Recorded Not on file documented as of this encounter Plan of Treatment Not on filedocumented as of this encounter Visit Diagnoses Diagnosis Pure hyperglyceridemia (HRC) Pure hyperglyceridemia Type II or unspecified type diabetes jasen litus without mention of complication, uncontrolled documented in this encounter Care Teams Nougat Candy Maker Helper Relationship Specialty Start Date End Date Lilian Persaud DO PCP - General 12/23/10 05/16/12 [address] [facility] [place] [address] documented as of this encounter
--- OUTSIDE RECORDS SUMMARY | 2022-02-14 15:07 | XMS_ITS | Encounter Summary ---
:1970 Author Organization [facility] Address [address] [place] [address] Care Team Providers Name Role Phone Lilian Persaud DO Primary Care Provider Reason for Visit Reason Comments Prior Authorization Request Encounter Details Date Type Department Care Team Description 02/02/2011 Notes/Orders [facility] Lilian Persaud DO [address] [facility] [address] [place] [address] [place] [address] [phone] (Wo rk) Social History Tobacco Use Types Packs/Day Years Used Date Smoking Tobacco: Never Assessed Sex Assigned at Date Recorded Not on file documented as of this encounter Progress Notes Herlinda Lucio [facility] - 02/02/2011 4:38 PM CDT See message from 01/26. FERNANDO for Tyrone arreola. Approval faxed to pharmacy and sent to [facility]. documented in this encounter Plan of Treatment Not on filedocumented as of this encounter Visit Diagnoses Not on filedocumented in this encounter Care Teams Barge Engineer Relationship Specialty Start Date End Date Lilian Persaud DO PCP - General 12/23/10 05/16/12 [address] [place] [address] documented as of this encounter
--- OUTSIDE RECORDS SUMMARY | 2022-02-14 15:07 | XMS_ITS | Encounter Summary ---
:1970 Author Organization [facility] Address [address] [place] [address] Care Team Providers Name Role Phone Antonio Jerez MD Primary Care Provider Reason for Visit Reason Comments Other Encounter Details Date Type Department Care Team Description 12/22/2009 Telephone [facility], Message Other [address] [facility] . [place], [place] [address] Social History Tobacco Use Types Packs/Day Years Used Date Smoking Tobacco: Never Assessed Sex Assigned at Date Recorded Not on file documented as of this encounter Progress Notes Stevenson Norris MD - 12/22/2009 1:40 PM CDT Phone Note filed by Stevenson Norris MD at 08/15/101643 Author: Stevenson Norris MD Service: (none) Author Type: Physician Filed: 08/15/101643 Note Time: 12/22/09 1340 Status: Signed Educational Interpreter: Stevenson Norris MD (Physician) Please schedule FU with me in 4 weeks Created on 22Dec2009 1:40pm by STEVENSON NORRIS On 24Dec2009 1:27pm RENATE MORELAND wrote: Called #[phone], left message for return call to [facility]. Called #[phone], number has been disconnected. On [id number] 10:14am TAR HATFIELD wrote: appt. made Acknowledged by TRA HATFIELD on 10:14am M BOX OPERATOR documented in this encounter Plan of Treatment Not on filedocumented as of this encounter Visit Diagnoses Not on filedocumented in this encounter Care Teams Cripple Chaser Relationship Specialty Start Date End Date Antonio Jerez MD PCP - General 07/25/10 12/22/10 [address] [place] [address] documented as of this encounter
--- OUTSIDE RECORDS SUMMARY | 2022-02-14 15:07 | XMS_ITS | Encounter Summary ---
:1970 Author Organization [facility] Address [address] [place] [address] Care Team Providers Name Role Phone Lilian Persaud DO Primary Care Provider Reason for Visit Reason Comments Forms Encounter Details Date Type Department Care Team Description 01/11/2011 Telephone [facility] Lilian Persaud DO Forms [address] [address] [place] [address] [place] [address] [phone] (Wo rk) Social History Tobacco Use Types Packs/Day Years Used Date Smoking Tobacco: Never Assessed Sex Assigned at Date Recorded Not on file documented as of this encounter Nursing Notes Marco Antonio Malcolm MA - 01/12/2011 10:15 AM CDT form faxed Lilian Castillo DO - 01/12/2011 8:53 AM CDT paperwork filled out, given to my nurse to fax. Adeola Weeks - 01/11/2011 3:34 PM CDT I do not have form. It would have been given to you on Monday 01/08. Do you remember seeing it or do you still have it? Thanks. Chelsi Seth - 01/11/2011 2:54 PM CDT Non -Symptom Message from Front Line Primary Care Provider: Lilian Persaud DO, DO Message: There was a diabetic form that was faxed 01/07 was this received? This is for his diabetic supplies documented in this encounter Plan of Treatment Not on filedocumented as of this encounter Visit Diagnoses Not on filedocumented in this encounter Care Teams Senior Interior Designer Relationship Specialty Start Date End Date Lilian Persaud DO PCP - General 12/23/10 05/16/12 [address] [place] [address] documented as of this encounter
--- OUTSIDE RECORDS SUMMARY | 2022-02-14 15:07 | XMS_ITS | Encounter Summary ---
:1970 Author Organization [facility] Address [address] [place] [address] Care Team Providers Name Role Phone Lilian Persaud DO Primary Care Provider Encounter Details Date Type Department Care Team Description 01/22/2011 Lab Visit [facility] Pure hyperglyceridemia; [address] DM w/o complication type II, uncontrolled [place] [address] Social History Tobacco Use Types Packs/Day Years [...] Direct LDL(If Needed) (01/22/2011 11:58 AM CDT) [facility] gist Method Time Signature Cholesterol 276 (H) [...] - 01/22/2011 3:11 PM CDT Performed at [facility], [address] [place] [address] Lilian Persaud DO LAB_1 Performing Organization Address City/State/[facility] Code Phon e Number HP CONVERSION [...] - 01/22/2011 3:11 PM CDT Performed at [facility], [address] [place] [address] Lilian Persaud DO LAB_1 Performing Organization Address City/[facility] Phon e Number HP CONVERSION (ABNORMAL) GLUCOSE (01/22/2011 11:58 AM CDT) athologist Signature Lab Glucose 249 (H) 60 - 100 HP CONVERSION mg/dL Specimen Anatomical Collection Method Collection Time Receive d Time (Source) Location / / Volume Laterality 01/22/2011 11:58 01/22/2011 2:46 AM CDT PM CDT Narrative HP CONVERSION - 01/22/2011 3:11 PM CDT Performed at [facility], [address] [place] [address] Lilian Persaud DO LAB_1 Performing Organization Address City/[facility] Code Phon e Number HP CONVERSION [...] - 01/22/2011 3:11 PM CDT Performed at [facility], [address] [place] [address] Lilian Luther Cori SAL LAB_1 Performing Organization Address [facility] Phon e Number HP CONVERSION AST (01/22/2011 11:58 AM CDT) [facility] gist Method Time Signature Aspartate 27 0 - 45 HP CONVERSION Aminotransferase U/L Specimen Anatomical Collection Method Collection Time Receive d Time (Source) Location / / Volume Laterality 01/22/2011 11:58 01/22/2011 2:46 AM CDT PM CDT Narrative HP CONVERSION - 01/22/2011 3:11 PM CDT Performed at [facility], [address] [place], [place] [id number] Lilian Luther Cori SAL LAB_1 Performing Organization Address [facility] Phon e Number HP CONVERSION ALT (SGPT) (01/22/2011 11:58 AM CDT) [facility] Method Time Signature Alanine 41 4 - 55 HP CONVERSION Aminotransferase U/L Specimen Anatomical Collection Method Collection Time Receive d Time (Source) Location / / Volume Laterality 01/22/2011 11:58 01/22/2011 2:46 AM CDT PM CDT Narrative HP CONVERSION - 01/22/2011 3:11 PM CDT Performed at [facility], [address] [place], [place] [address] Lilian Luther Cori SAL LAB_1 Performing Organization Address [facility] Phon e Number HP CONVERSION VENIPUNCTURE (SOBEIDA) (01/22/2011 11:52 AM CDT) athologist Signature Venipuncture Done HP CONVERSION Specimen (Source) Anatomical Collection Method Collection Time Re ceived Time Location / / Volume Laterality 01/22/2011 11:52 AM CDT Narrative HP CONVERSION - 01/22/2011 11:52 AM CDT Performed at [facility], [address] [place] [address] Lilian Luther Cori SAL LAB_1 Performing Organization Address [facility] Phon e Number HP CONVERSION documented in this encounter Visit Diagnoses Diagnosis Pure hyperglyceridemia (HRC) Pure hyperglyceridemia Type II or unspecified type diabetes jasen litus without mention of complication, uncontrolled documented in this encounter Care Teams Edge Blacker Relationship Specialty Start Date End Date Lilian Persaud DO PCP - General 12/23/10 05/16/12 [address] [place] [address] documented as of this encounter
--- OUTSIDE RECORDS SUMMARY | 2022-02-14 15:07 | XMS_ITS | Encounter Summary ---
:1970 Author Organization [facility] Address [address] [place] [address] Care Team Providers Name Role Phone Lilian Persaud DO Primary Care Provider Reason for Visit Reason Comments ERRONEOUS ENTRY Encounter Details Date Type Department Care Team Description 03/08/2011 Telephone [facility] Lilian Persaud DO ERRONEOUS ENTRY [address] [facility] . [address] [place] [address] [place] [address] [phone] (Wo rk) Social History Tobacco Use Types Packs/Day Years Used Date Smoking Tobacco: Never Assessed Sex Assigned at Date Recorded Not on file documented as of this encounter Plan of Treatment Not on filedocumented as of this encounter Visit Diagnoses Not on filedocumented in this encounter Care Teams Lay Out Maker Relationship Specialty Start Date End Date Lilian Persaud DO PCP - General 12/23/10 05/16/12 1415 [place] [address] documented as of this encounter
--- OUTSIDE RECORDS SUMMARY | 2022-02-14 15:07 | XMS_ITS | Encounter Summary ---
:1970 Author Organization [facility] [facility] Address [address] [place] [address] Care Team Providers Name Role Phone Lilian Pesraud DO Primary Care Provider Reason for Visit Reason Comments RESULTS, TEST Encounter Details Date Type Department Care Team Description 02/03/2011 Telephone [facility] Lilian Persaud DO RESULTS, TEST [facility] [facility] [address] [place] [address] [place] [address] [phone] (Wo rk) Social History Tobacco Use Types [...] appointment in February. New prescription faxed to [facility] in [place]. documented in this encounter Plan of Treatment Not on filedocumented as of this encounter Visit Diagnoses Not on filedocumented in this encounter Care Teams Tobacco Warehouse Manager Relationship Specialty Start Date End Date Lilian Persaud DO PCP - General 12/23/10 05/16/12 1415 [place] [address] documented as of this encounter
--- OUTSIDE RECORDS SUMMARY | 2022-02-14 15:07 | XMS_ITS | Encounter Summary ---
:1970 Author Organization [facility] Address [address] [place] [address] Care Team Providers Name Role Phone Antonio Jerez MD Primary Care Provider Encounter Details Date Type Department Care Team Description 11/25/2010 Lab Visit [facility] DM w/o complication type II, [address] uncontrolled [place], [place] [address] Social History Tobacco Use Types Packs/Day Years [...] (ABNORMAL) HGB A1C (11/25/2010 4:18 PM CDT) [facility] gist Method Time Signature Hemoglobin 10.0 (H) 0.0 - 6.0 HP CONVERSION A1CRM % Specimen Anatomical Collection Method Collection Time Receive d Time (Source) Location / / Volume Laterality 11/25/2010 4:18 PM 1 8:47 CDT PM CDT Narrative HP CONVERSION - 11/26/2010 1:31 PM CDT .Critical NA result of 126 called to an d read back by Mimi at [facility],.11/26/2010,12:15, by ALISHA Lilian Luther Cori SAL LAB_1 Performing Organization Address [facility] Phon e Number HP CONVERSION Hgb [...] Lilian Douglassjen SAL LAB_1 Performing Organization Address [facility] Phon e Number HP CONVERSION (ABNORMAL) [...] Lilian Douglassjen SAL LAB_1 Performing Organization Address [facility] Phon e Number HP CONVERSION (ABNORMAL) [...] an d read back by Mimi at [facility],.11/26/2010,12:15, by ALISHA Lilian Perasud DO LAB_1 Performing Organization Address [facility] Phon e Number HP CONVERSION VENIPUNCTURE (SOBEIDA) (11/25/2010 4:09 PM CDT) athologist Signature Venipuncture Done HP CONVERSION Specimen (Source) Anatomical Collection Method Collection Time Re ceived Time Location / / Volume Laterality 11/25/2010 4:09 PM CDT Narrative HP CONVERSION - 11/25/2010 4:09 PM CDT Performed at [facility], [address] [place] [address] Lilian Persaud DO LAB_1 Performing Organization Address [facility] Phon e Number HP CONVERSION documented in this encounter Visit Diagnoses Diagnosis Type II or unspecified type diabetes jasen litus without mention of complication, uncontrolled documented in this encounter Care Teams Ski Molder Relationship Specialty Start Date End Date Antonio Jerez MD PCP - General 07/25/10 12/22/[address] [place] [address] documented as of this encounter
--- OUTSIDE RECORDS SUMMARY | 2022-02-14 15:07 | XMS_ITS | Encounter Summary ---
:1970 Author Organization [facility] Address [address] [address] Care Team Providers Name Role Phone Antonio Jerez MD Primary Care Provider Encounter Details Date Type Department Care Team Description 12/22/2009 PN Conversion Only CONV FAMILIY Alexsander Mock MD [address] [place] [address] [place] [address] (Wo rk) Social History Tobacco Use Types Packs/Day Years Used Date Smoking Tobacco: Never Assessed Sex Assigned at Date Recorded Not on file documented as of this encounter Plan of Treatment Not on filedocumented as of this encounter Visit Diagnoses Not on filedocumented in this encounter Care Teams Demand Planning Analyst Relationship Specialty Start Date End Date Antonio Jerez MD PCP - General 07/25/10 12/22/10 [address]15 [place], [place] [address] documented as of this encounter
--- OUTSIDE RECORDS SUMMARY | 2022-02-14 15:07 | XMS_ITS | Encounter Summary ---
:1970 Author Organization [employer] Address [address] [place] [address] Care Team Providers Name Role Phone Lilian Persaud DO Primary Care Provider Reason for Visit Reason Comments Diabetes Encounter Details Date Type Department Care Team Description 12/23/2010 Office Visit [facility] Lilian Persaud, DM (ralph betes mellitus) type II uncontrolled with renal manifestation (Primary Dx); Medicine DO Hypertriglyceridemia; [address] Tobacco use disorder; [place] [address] [place], [place] Chest pain [phone] [address] Social History Tobacco Use Types Packs/Day Years [...] 5' 10 (177.8 cm) Weight: 217 lb (15748 g) General: patient in NAD. Alert and [...] insurance , since he cannot afford it [id number]. Patient declined cardiac workup and EKG today. [...] unspecified documented in this encounter Care Teams Hvac Sales Representative Relationship Specialty Start Date End Date Lilian Presaud DO PCP - General 12/23/10 05/16/12 [address] [place] [address] documented as of this encounter
--- OUTSIDE RECORDS SUMMARY | 2022-02-14 15:07 | XMS_ITS | Encounter Summary ---
:1970 Author Organization [facility] Address [address] [place] [address] Care Team Providers Name Role Phone Antonio Jerez MD Primary Care Provider Encounter Details Date Type Department Care Team Description 06/19/2010 PN Conversion Only [place] CONVERSION Vane Zarate MD [address] [facility] [address] [place] [address] [address] [place] [address] Social History Tobacco Use Types Packs/Day Years Used Date Smoking Tobacco: Never Assessed Sex Assigned at Date Recorded Not on file documented as of this encounter Plan of Treatment Not on filedocumented as of this encounter Procedures Procedure Name Priority Date/Time Associated Comments Diagnosis CARNITINE FREE AND Routine 06/19/2010 4:02 PM Res ults for this TOTAL ANIMAL STUNNER procedure are i n the results section. COMPLETE BLOOD Routine 06/19/2010 4:02 PM Results for this COUNT-W/DIFF ANIMAL STUNNER procedure are i n the results section. DIFFERENTIAL Routine 06/19/2010 4:02 PM Results f or this ANIMAL STUNNER procedure are i n the results section. AMYLASE Routine 06/19/2010 4:02 PM Results f or this ANIMAL STUNNER procedure are i n the results section. VALPROIC ACID Routine 06/19/2010 4:02 PM Results for this (DEPAKENE) ANIMAL STUNNER procedure are i n the results section. LIPASE Routine 06/19/2010 4:02 PM Results f or this ANIMAL STUNNER procedure are i n the results section. GT (GAMMA GT) Routine 06/19/2010 4:02 PM Results for this ANIMAL STUNNER procedure are i n the results section. AMMONIA Routine 06/19/2010 4:02 PM Results f or this ANIMAL STUNNER procedure are i n the results section. ALT (SGPT) Routine 06/19/2010 4:02 PM Results f or this ANIMAL STUNNER procedure are i n the results section. AST Routine 06/19/2010 4:02 PM Results f or this ANIMAL STUNNER procedure are i n the results section. CK, TOTAL Routine 06/19/2010 4:02 PM Results f or this ANIMAL STUNNER procedure are i n the results section. documented in this encounter Results (ABNORMAL) Differential (06/19/2010 4:02 PM ANIMAL STUNNER) [facility] gist Method Time Signature Absolute 3.2 1.8 [...] / / Volume Laterality 06/19/2010 4:02 PM ANIMAL STUNNER Vane Zarate MD LAB_1 Performing Organization Address City/State/ZIP Code Phon e Number HP CONVERSION Ammonia (06/19/2010 4:02 PM ANIMAL STUNNER) athologist Signature Ammonia, Blood 32 0 - 44 HP CONVERSION umol/L Specimen (Source) Anatomical Collection Method Collection Time Re ceived Time Location / / Volume Laterality 06/19/2010 4:02 PM ANIMAL STUNNER Vane Zarate MD LAB_1 Performing Organization Address City/State/ZIP Code Phon e Number HP CONVERSION CARNITINE FREE AND TOTAL (06/19/2010 4:02 PM ANIMAL STUNNER) athologist Signature Carnitine, Free 30 25 - 60 HP CONVERSION umol/L Comment: faxed to [phone], 011,15:43, by STEDA Carnitine, Total 42 34 - 86 umol/L HP CONVE RSION Comment: faxed to [phone], 011,15:43, by MONICA Carnitine Esterified 12 5 - 29 umol/L HP CO NVERSION Comment: faxed to [phone], 011,15:43, by MONICA Carnitine Kristen/Free Ratio 0.4 0.1 - 1.0 HP CONVERSION Comment: faxed to [phone], 06/20/2010,15:43 , by MONICA Performed at [place] [address] 8 Specimen (Source) Anatomical Collection Method Collection Time Re ceived Time Location / / Volume Laterality 06/19/2010 4:02 PM ANIMAL STUNNER Vane Zarate MD LAB_1 Performing Organization Address City/State/ZIP Code Phon e Number HP CONVERSION CK, Total (06/19/2010 4:02 PM ANIMAL STUNNER) athologist Signature Creatine Kinase 73 0 - 225 HP CONVERSION U/L Specimen (Source) Anatomical Collection Method Collection Time Re ceived Time Location / / Volume Laterality 06/19/2010 4:02 PM ANIMAL STUNNER Vane Zarate MD LAB_1 Performing Organization Address City/State/ZIP Code Phon e Number HP CONVERSION Lipase (06/19/2010 4:02 PM ANIMAL STUNNER) athologist Signature Lipase 63 5 - 70 U/L HP CONVERSION Specimen (Source) Anatomical Collection Method Collection Time Re ceived Time Location / / Volume Laterality 06/19/2010 4:02 PM ANIMAL STUNNER Vane Zarate MD LAB_1 Performing Organization Address City/State/ZIP Code Phon e Number HP CONVERSION Amylase (06/19/2010 4:02 PM ANIMAL STUNNER) athologist Signature Amylase Serum 43 25 - 115 HP CONVERSION U/L Specimen (Source) Anatomical Collection Method Collection Time Re ceived Time Location / / Volume Laterality 06/19/2010 4:02 PM ANIMAL STUNNER Vane Zarate MD LAB_1 Performing Organization Address City/State/ZIP Code Phon e Number HP CONVERSION ALT (SGPT) (06/19/2010 4:02 PM ANIMAL STUNNER) [facility] gist Method Time Signature Alanine 37 4 - 55 HP CONVERSION Aminotransferase U/L Specimen (Source) Anatomical Collection Method Collection Time Re ceived Time Location / / Volume Laterality 06/19/2010 4:02 PM ANIMAL STUNNER Vane Zarate MD LAB_1 Performing Organization Address City/[facility]/ZIP Code Phon e Number HP CONVERSION AST (06/19/2010 4:02 PM ANIMAL STUNNER) [facility] gist Method Time Signature Aspartate 20 0 - 45 HP CONVERSION Aminotransferase U/L Specimen (Source) Anatomical Collection Method Collection Time Re ceived Time Location / / Volume Laterality 06/19/2010 4:02 PM ANIMAL STUNNER Vane Zarate MD LAB_1 Performing Organization Address City/[facility]/ZIP Code Phon e Number HP CONVERSION (ABNORMAL) GT (Gamma GT) (06/19/2010 4:02 PM ANIMAL STUNNER) [facility] Method Time Signature Gamma-Glutamyl 182 (H) 1 - 48 U/L HP CONVERSION Transferase Specimen (Source) Anatomical Collection Method Collection Time Re ceived Time Location / / Volume Laterality 06/19/2010 4:02 PM ANIMAL STUNNER Vane Zarate MD LAB_1 Performing Organization Address [facility] Code Phon e Number HP CONVERSION Hemogram/Plts/Diff (06/19/2010 4:02 PM ANIMAL STUNNER) P athologist Signature White Blood Cell 8.6 [...] / / Volume Laterality 06/19/2010 4:02 PM ANIMAL STUNNER Vane Zarate MD LAB_1 Performing Organization Address City/[facility]/ZIP Code Phon e Number HP CONVERSION (ABNORMAL) Valproic Acid (Depakene) (06/19/2010 4:02 PM ANIMAL STUNNER) [facility] gist Method Time Signature Date Last Dose 19jun2010 No normal HP CONVERSION Valproic Acid range Time Last Dose 1,000 No normal HP CONVERSION Valproic Acid range Valproic 136 (H) 50 - 100 HP CONVERSION Acid/Depakene ug/dL (Valp) Specimen (Source) Anatomical Collection Method Collection Time Re ceived Time Location / / Volume Laterality 06/19/2010 4:02 PM ANIMAL STUNNER Vane Zarate MD LAB_1 Performing Organization Address City/State/ZIP Code Phon e Number HP CONVERSION documented in this encounter Visit Diagnoses Not on filedocumented in this encounter Care Teams Couturiere Relationship Specialty Start Date End Date Antonio Jerez MD PCP - General 07/25/10 12/22/10 [address] [facility] [place] [address] documented as of this encounter
--- OUTSIDE RECORDS SUMMARY | 2022-02-14 15:07 | XMS_ITS | Encounter Summary ---
:1970 Author Organization [facility] Address [address] [place] [address] Care Team Providers Name Role Phone Lilian Persaud DO Primary Care Provider Reason for Visit Reason Comments Diabetic Concern Encounter Details Date Type Department Care Team Description 01/29/2011 Telephone [facility] Lilian Persaud DO Diabetic Concern [address] [facility] . [address] [facility] [place] [address] [place] [address] [phone] (Wo rk) Social History Tobacco Use Types [...] on filedocumented in this encounter Care Teams Grizzlyman Relationship Specialty Start Date End Date Lilian Persaud DO PCP - General 12/23/10 05/16/12 1415 [place], [place] [address] documented as of this encounter
--- OUTSIDE RECORDS SUMMARY | 2022-02-14 15:07 | XMS_ITS | Encounter Summary ---
:1970 Author Organization [employer] Address [address] [place] [address] Care Team Providers Name Role Phone Antonio Jerez MD Primary Care Provider Encounter Details Date Type Department Care Team Description 09/04/2010 Office Visit [facility] Lilian Persaud, DO [address] [facility] . [address] [place] [address] [place] [address] [phone] (Wo rk) Social History Tobacco Use Types Packs/Day Years Used Date Smoking Tobacco: Never Assessed Sex Assigned at Date Recorded Not on file documented as of this encounter Progress Notes Lilian Persaud, - 09/04/2010 12:01 AM CDT Acute Clinic Visit SUBJECTIVE: History of Present Illness: 40-year-old male presents with fever, nausea and vomiting times one day. Patient also has had a rash for one to 2 months. No exposure to potentially contaminated food or water. Patient has not eaten out at restaurants recently. No recent travel outside of the [place] No similar illness in the household. No URI symptoms, sore throat or ear pain. No known sick contacts. No blood in the vomitus or diarrhea. Patient had a subjective temperature with chills yesterday. He vomited several times yesterday and 2 times this morning. He is feeling better, and had a bottle of soda and a chicken sandwich for lunch, and not vomited since. Patient has had loose stools but no watery diarrhea. Headache located to the frontal region yesterday evening, doing better. Diffuse myalgias along with nausea and dizziness. Treatment none. Patient describes a rash that started on his chest and then spread to his neck for the past one to 2 months. He thinks he had similar rash on his shoulders that started first and then spread to his chest and his belly. Otherwise no similar symptoms. Nonpruritic. No new soaps or pets or clothing. Erythematous without drainage. Treatment: None. Meds this Illness: None Past History: Adverse Drug Reactions: Haloperidol, thiothixene. Chronic Medications: Reviewed and updated today on the Patient Health Profile in LastWord. Review of Systems: No History of chronic GI disease. OBJECTIVE: Vital Signs: Vital Signs recorded on paper shingle. Temperature: 98.5 General Appearance: Well-appearing. Head: Normocephalic. Eyes: PERRLA, full EOM. External exams normal. Ears: Normal pinnae, canals, and TM's. Nose: Patent, without deformity. Throat: Moist mucous membranes without lesions, erythema, or exudate. Neck: Supple, without masses, lymphadenopathy or tenderness. Cardiovascular: Regular rate and rhythm without murmurs rubs or gallops. Respiratory: Lung sounds clear to auscultation without respiratory distress. Abdomen: Bowel sounds hyperactive without pathological sounds. Mild generalized abdominal tenderness. No localized abdominal tenderness, guarding or rebound. Skin: Large area across his central chest and under the pectoralis muscles with scattered lesions across the upper chest shoulders and trapezius area with well-demarcated, erythematous areas, confluence noted with slightly raised outer border (1-2mm) in a circular pattern. Satellite lesions across the upper chest and shoulders. Non-malodorous. No discharge. No warmth. Nontender to palpation. Lab & X-Ray: None ASSESSMENT: Acute viral gastroenteritis. Tinea corporis. PLAN: Recommendations for home treatment: Patient appears to be doing better, and I expect he will continue to improve. Frequent small sips of clear nutritious liquids and advance as tolerated. Advance diet to small amounts bland solids as tolerated. Avoid drinking of water exclusively. Avoid milk products. Avoid large meals and spicy foods. Avoid liquids which have a stimulant effect, such as juices, coffee and tea. Diflucan 150 mg weekly x4 weeks for tinea corporis infection. Advised not to share towels with others. If no improvement, patient will return to the office. With large area, patient may need prolonged course, but I advised him to return to the office before additional refills given. Consider scraping for lab sample in the future. Pt was given discharge instructions and was discharged in stable condition. RTC PRN for persistent vomiting, diarrhea which is not improving or otherwise worsening condition. *SH~DNS~GE documented in this encounter Plan of Treatment Not on filedocumented as of this encounter Visit Diagnoses Not on filedocumented in this encounter Care Teams Tube Teller Relationship Specialty Start Date End Date Antonio Jerez MD PCP - General 07/25/10 12/22/10 [facility]5 [facility] [address] documented as of this encounter
--- OUTSIDE RECORDS SUMMARY | 2022-02-14 15:07 | XMS_ITS | Encounter Summary ---
:1970 Author Organization [facility] Address [address] [place] [address] Care Team Providers Name Role Phone Rolando Lopez DO Primary Care Provider Reason for Visit Reason Comments Refill Encounter Details Date Type Department Care Team Description 03/11/2011 Refill [facility] Rolando Lopez DO Refill [address] [address] [place] [address] [place] [address] [phone] (Wo rk) Social History Tobacco Use Types [...] on filedocumented in this encounter Care Teams Dean Of Education Relationship Specialty Start Date End Date Rolando Lopez DO PCP - General 12/23/10 05/16/12 [address] [place] [address] documented as of this encounter
--- OUTSIDE RECORDS SUMMARY | 2022-02-14 15:07 | XMS_ITS | Encounter Summary ---
:1970 Author Organization [employer] Address [address] [place] [address] Care Team Providers Name Role Phone Antonio Jerez MD Primary Care Provider Reason for Visit Reason Comments RESULTS, TEST Encounter Details Date Type Department Care Team Description 11/27/2010 Telephone [facility] Lilian Persaud DO RESULTS, TEST [facility] [facility] [address] [place] [address] [place] [address] [phone] (Wo rk) Social History Tobacco Use Types [...] on filedocumented in this encounter Care Teams Electrocardiographic Technician Relationship Specialty Start Date End Date Antonio Jerez MD PCP - General 07/25/10 12/22/10 1415 [facility] [place] [address] documented as of this encounter
--- OUTSIDE RECORDS SUMMARY | 2022-02-14 15:07 | XMS_ITS | Encounter Summary ---
:1970 Author Organization [employer] Address [address] [place] [address] Care Team Providers Name Role Phone Antonio Jerez MD Primary Care Provider Reason for Visit Reason Comments Follow-up Refill Diabetes Encounter Details Date Type Department Care Team Description 12/11/2010 Office Visit Lilian Camejo, DM w/o complication type II, uncontrolled; Medicine DO Hypertriglyceridemia; [address] Nonspecific abnormal results [place] [address] [place], [place] [phone] [address] Social History Tobacco Use Types Packs/Day Years [...] hospital discharge summary and records reviewed from [facility] from admission November 26 through November [...] has not made an appointment with the junior graphic designer yet. patient has had procedure in the [...] BP: 102/66 Pulse: 104 Weight: 215 lb (73625 g) General: Patient alert, in NAD. Head: [...] study documented in this encounter Care Teams Scientific Photographer Relationship Specialty Start Date End Date Antonio Jerez MD PCP - General 07/25/10 12/22/[address] [place] [address] documented as of this encounter
--- OUTSIDE RECORDS SUMMARY | 2022-02-14 15:07 | XMS_ITS | Encounter Summary ---
:1970 Author Organization [facility] Address [address] [place] [address] Care Team Providers Name Role Phone Lilian Persaud DO Primary Care Provider Reason for Visit Reason Comments Refill Encounter Details Date Type Department Care Team Description 01/08/2011 Refill [facility] [place] Lilian Persaud DO Refill 1415 [facility] . [address] [address] [place] [address] [place] [address] [phone] (Wo rk) Social History Tobacco Use Types [...] uncontrolled documented in this encounter Care Teams Senior Technical Program Manager Relationship Specialty Start Date End Date Lilian Persaud DO PCP - General 12/23/10 05/16/12 1415 [place] [address] documented as of this encounter
--- OUTSIDE RECORDS SUMMARY | 2022-02-14 15:07 | XMS_ITS | Encounter Summary ---
:1970 Author Organization [facility] Address [address] [place] [address] Care Team Providers Name Role Phone Lilian Persaud DO Primary Care Provider Reason for Visit Reason Comments Refill Encounter Details Date Type Department Care Team Description 03/25/2011 Refill [facility] Lilian Persaud, Refill [address] [address] [place] [address] [place] [address] [phone] (Wo rk) Social History Tobacco Use Types Packs/Day Years Used Date Smoking Tobacco: Never Assessed Sex Assigned at Date Recorded Not on file documented as of this encounter Nursing Notes Herlinda Lucio HUC - 03/26/2011 11:10 AM CST Patient informed ER HELPER Gagandeep Hinojosa MD - 03/25/2011 5:43 PM CST Call pt. Dose limited to 1000 mg BID for 30 days to see if med can be tolerated ER HELPER Judy Pittman RN - 03/25/2011 3:26 PM [...] on filedocumented in this encounter Care Teams Assembly Machine Tender Relationship Specialty Start Date End Date Lilian Persaud DO PCP - General 12/23/10 05/16/12 [address] [place] [address] documented as of this encounter
--- OUTSIDE RECORDS SUMMARY | 2022-02-14 15:07 | XMS_ITS | Encounter Summary ---
:1970 Author Organization [facility] Address [address] [place] [address] Care Team Providers Name Role Phone Antonio Jerez MD Primary Care Provider Encounter Details Date Type Department Care Team Description 08/20/2010 PN Conversion Only [facility] Antonio Jerez , Medicine MD 1415 [facility] . [address] [place] [address] [place] [address] (Wo rk) Social History Tobacco Use Types Packs/Day Years Used Date Smoking Tobacco: Never Assessed Sex Assigned at Date Recorded Not on file documented as of this encounter Plan of Treatment Not on filedocumented as of this encounter Visit Diagnoses Not on filedocumented in this encounter Care Teams Lead Oxide Mill Tender Relationship Specialty Start Date End Date Antonio Jerez MD PCP - General 07/25/10 12/22/10 [address] [place] [address] documented as of this encounter
--- OUTSIDE RECORDS SUMMARY | 2022-02-14 15:07 | XMS_ITS | Encounter Summary ---
:1970 Author Organization [employer] Address [address] [place] [address] Care Team Providers Name Role Phone Antonio Jerez MD Primary Care Provider Encounter Details Date Type Department Care Team Description 12/11/2010 Lab Visit [facility] Pure hyperglyceridemia; [address] DM w/o complication type II, uncontrolled [place], [place] [address] Social History Tobacco Use Types Packs/Day Years [...] - 12/11/2010 8:30 PM CDT Performed at [facility], [address] [place] [address] Lilian Persaud DO LAB_1 Performing Organization Address [...] - 12/11/2010 8:30 PM CDT Performed at [facility], [address] [place] [address] Lilian Persaud DO LAB_1 Performing Organization Address [facility] Phon e Number HP CONVERSION Creatinine / [...] - 12/11/2010 8:30 PM CDT Performed at [facility], [address] [place] [address] Lilian Persaud DO LAB_1 Performing Organization Address [facility] Phon e Number HP CONVERSION AST (12/11/2010 3:09 PM CDT) [facility] Method Time Signature Aspartate 19 0 - 45 HP CONVERSION Aminotransferase U/L Specimen Anatomical Collection Method Collection Time Receive d Time (Source) Location / / Volume Laterality 12/11/2010 3:09 PM 1 8:13 CDT PM CDT Narrative HP CONVERSION - 12/11/2010 8:30 PM CDT Performed at [facility], [address] [place] [address] Lilian Persaud DO LAB_1 Performing Organization Address [facility] Phon e Number HP CONVERSION ALT (SGPT) (12/11/2010 3:09 PM CDT) [facility] Method Time Signature Alanine 28 4 - 55 HP CONVERSION Aminotransferase U/L Specimen Anatomical Collection Method Collection Time Receive d Time (Source) Location / / Volume Laterality 12/11/2010 3:09 PM 1 8:13 CDT PM CDT Narrative HP CONVERSION - 12/11/2010 8:30 PM CDT Performed at [facility], [address] [place] [address] Lilian Luther Cori SAL LAB_1 Performing Organization Address [facility] Phon e Number HP CONVERSION VENIPUNCTURE (SOBEIDA) (12/11/2010 3:05 PM CDT) athologist Signature Venipuncture Done HP CONVERSION Specimen (Source) Anatomical Collection Method Collection Time Re ceived Time Location / / Volume Laterality 12/11/2010 3:05 PM CDT Narrative HP CONVERSION - 12/11/2010 3:05 PM CDT Performed at [facility], [address] [place] [address] Lilian A Cori SAL LAB_1 Performing Organization Address [facility] Phon e Number HP CONVERSION documented in this encounter Visit Diagnoses Diagnosis Pure hyperglyceridemia (HRC) Pure hyperglyceridemia Type II or unspecified type diabetes jasen litus without mention of complication, uncontrolled documented in this encounter Care Teams Group Insurance Special Agent Relationship Specialty Start Date End Date Antonio Jerez MD PCP - General 07/25/10 12/22/[address] [place] [id number] documented as of this encounter
--- OUTSIDE RECORDS SUMMARY | 2022-02-14 15:07 | XMS_ITS | Encounter Summary ---
:1970 Author Organization [email or web address] Address [address] [place] [address] Care Team Providers Name Role Phone Antonio Jerez MD Primary Care Provider Reason for Visit Reason Comments Test Request Encounter Details Date Type Department Care Team Description 12/18/2010 Telephone [facility] Lilian Persaud, Test Request [address] [address] [place] [address] [place] [address] [phone] (Wo rk) Social History Tobacco Use Types [...] in this encounter Care Teams Sales And Marketing Professional Relationship Specialty Start Date End Date Antonio Jerez MD PCP - General 07/25/10 12/22/10 [facility] [place] [address] documented as of this encounter
--- OUTSIDE RECORDS SUMMARY | 2022-02-14 15:07 | XMS_ITS | Encounter Summary ---
:1970 Author Organization [employer] Address [address] [place] [address] Care Team Providers Name Role Phone Antonio Jerez MD Primary Care Provider Reason for Visit Reason Comments Other Encounter Details Date Type Department Care Team Description 11/26/2010 Telephone [facility] Mimi Rodrigues RN Other [address] [place], [place] [address] Social History Tobacco Use Types Packs/Day Years [...] LPN - 11/26/2010 2:49 PM CDT [place] [address] Olga Peterson V - 11/26/2010 1:09 PM CDT Please call patient to inform that his sodium is significantly low. Low sodium could caused extreme fatigue. It will be best to be seen today at urgent care or the emergency room for IV fluid hydration Mimi Rodrigues RN - 11/26/2010 12:17 PM CDT [facility] lab calling with critical result. Sodium is 126. Triage forwarding to clinician per distribution list to address. documented in this encounter Plan of Treatment Not on filedocumented as of this encounter Visit Diagnoses Not on filedocumented in this encounter Care Teams Plate Grinder Relationship Specialty Start Date End Date Antonio Jerez MD PCP - General 07/25/10 12/22/10 1415 [facility] [place] [address] documented as of this encounter
--- OUTSIDE RECORDS SUMMARY | 2022-02-14 15:07 | XMS_ITS | Encounter Summary ---
:1970 Author Organization [employer] Address [address] [place] [address] Care Team Providers Name Role Phone Lilian Persaud DO Primary Care Provider Reason for Visit Reason Comments Prior Authorization Request Encounter Details Date Type Department Care Team Description 01/26/2011 Telephone [facility] Lilian Persaud, A uthorization Medicine DO Request [address] [address] [place] [address] [place], [place] [phone] [address] Social History Tobacco Use Types Packs/Day Years [...] change meds [facility] phone [phone] Pharmacy Fax# or Address: fax [phone] Clinician Name: Cori Drug Name/Strength: Januvia 25mg tablets #30 Sig: take 1-2 tablets po daily Formulary Alternative: none given Insurance Carrier: *ECODE documented in this encounter Plan of Treatment Not on filedocumented as of this encounter Visit Diagnoses Not on filedocumented in this encounter Care Teams Voltage Inspector Relationship Specialty Start Date End Date Lilian Persaud DO PCP - General 12/23/10 05/16/12 [address] [place] [address] documented as of this encounter
--- OUTSIDE RECORDS SUMMARY | 2022-02-14 15:07 | XMS_ITS | Encounter Summary ---
:1970 Author Organization [employer] [facility] [employer] Address [address] [place] [address] Care Team Providers Name Role Phone Lilian Persaud DO Primary Care Provider Reason for Visit Reason Comments Diabetes WART Encounter Details Date Type Department Care Team Description 04/06/2011 Office Visit [facility] Lilian Persaud, DM w/o complication type II, uncontrolled (Primary Dx); Medicine DO Other disorders of lipoid metabolism; [address] [address] Hypertriglyceridemia; [place] [address] [place], [place] Plantar wart; [phone] [address] DM renal manif type II, uncontrolled Social History Tobacco Use Types Packs/Day Years Used Date Smoking Tobacco: Never Assessed Sex Assigned at Date Recorded Not on file documented as of this encounter Last Filed Vital Signs Vital Sign Reading Time Taken Comments Blood Pressure 120/78 04/06/2011 1:05 PM GARMENT SE[facility]ER [facility] Pulse 103 04/06/2011 1:05 PM [facility] Temperature - - Respiratory Rate - - Oxygen Saturation - - Inhaled Oxygen Concentration - - Weight 99.8 kg (220 lb) 04/06/2011 1:05 PM [facility] Height - - Body Mass Index 32.02 [...] current dose. Follow up in 4-6 weeks. ENT SEWER HAND documented in this encounter Progress Notes Lilian [...] DESTRUCT BENIGN SKIN LESIONS UP TO 14 [id number] 1. Vomiting likely side effect of metformin. [...] uncontrolled documented in this encounter Care Teams Patient Escort Relationship Specialty Start Date End Date Lilian Persaud DO PCP - General 12/23/10 05/16/12 [address] [place] [address] documented as of this encounter
--- OUTSIDE RECORDS SUMMARY | 2022-02-14 15:07 | XMS_ITS | Encounter Summary ---
:1970 Author Organization [employer] Address [address] [place] [address] Care Team Providers Name Role Phone Lilian Persaud DO Primary Care Provider Reason for Visit Reason Comments Medication Questions Encounter Details Date Type Department Care Team Description 01/08/2011 Refill [facility] Lilian Persaud DO Medication Questions [address] [address] [place] [address] [place] [address] [phone] (Wo rk) Social History Tobacco Use Types [...] uncontrolled documented in this encounter Care Teams Chair Maker Relationship Specialty Start Date End Date Lilian Persaud DO PCP - General 12/23/10 05/16/12 [address] [place] [address] documented as of this encounter
--- OUTSIDE RECORDS SUMMARY | 2022-02-14 15:07 | XMS_ITS | Encounter Summary ---
:1970 Author Organization [facility] Address [address] [place] [address] Care Team Providers Name Role Phone Michel Daniel MD Primary Care Provider Reason for Visit Reason Comments Other Encounter Details Date Type Department Care Team Description 12/16/2009 [facility]phone [facility] Michel Daniel MD Other [address] [facility] . [address] [facility] [place] [address] [place] [address] [phone] (Wo rk) Social History Tobacco Use Types Packs/Day Years Used Date Smoking Tobacco: Never Assessed Sex Assigned at Date Recorded Not on file documented as of this encounter Progress Notes Center, Message - 12/16/2009 10:03 AM CDT Phone Note filed by [email or web address] at 08/15/10 9123 Author: [email or web address] Service: (none) Author Type: (none) Filed: 08/15/107 Note Time: 12/16/09 1003 Status: Signed Extension Course Counselor: [email or web address] (Resource) PRESCRIPTION REFILL Please provide enough refills to last until patient's next visit. Comment:- Pharmacy Seq #:-[phone] Pharmacy Name-Phone/Fax:-[facility] Street or City:-[place] Clinician Name:-Talisha Drug Name/Strength:-risperdal 3mg Sig: Dose/Route/Freq:-take 2 tabs po qhs Quantity & Last Fill:-60 10/08/09 *ECODE~PNRF Created on 16Dec2009 10:03am by ANALY LIM On 16Dec2009 11:55am MICHEL DANIEL wrote: sent Acknowledged by MICHEL DANIEL on 11:55am S DEVELOPMENT ASSOCIATE documented in this encounter Plan of Treatment Not on filedocumented as of this encounter Visit Diagnoses Not on filedocumented in this encounter Care Teams Logistics Associate Relationship Specialty Start Date End Date Michel Daniel MD PCP - General 07/25/10 12/22/10 [address] [place] [address] documented as of this encounter
--- OUTSIDE RECORDS SUMMARY | 2022-02-14 15:07 | XMS_ITS | Encounter Summary ---
:1970 Author Organization [facility] Address [address] [address] Care Team Providers Name Role Phone Antonio Jerez MD Primary Care Provider Encounter Details Date Type Department Care Team Description 09/04/2010 PN Conversion Only [facility] CONVERSION 14[address] [place] [address] Social History Tobacco Use Types Packs/Day Years Used Date Smoking Tobacco: Never Assessed Sex Assigned at Date Recorded Not on file documented as of this encounter Plan of Treatment Not on filedocumented as of this encounter Visit Diagnoses Not on filedocumented in this encounter Care Teams Sports Management Intern Relationship Specialty Start Date End Date Antonio Jerez MD PCP - General 07/25/10 12/22/10 [address] [place] [address] documented as of this encounter
--- OUTSIDE RECORDS SUMMARY | 2022-02-14 15:07 | XMS_ITS | Encounter Summary ---
:1970 Author Organization [employer] Address [address] [address] Care Team Providers Name Role Phone Antonio Jerez MD Primary Care Provider Reason for Visit Reason Comments Lucy Burciaga Encounter Details Date Type Department Care Team Description 11/25/2010 Office Visit [facility] Lilian Persaud Stye; Medicine DO Dermatophytosis of the body; [address] [place] [address] [address] DM w/o complication type II, uncontrolle d; [address] [place], [place] Other disorders of [place]oid [place] [address] [phone] Social History Tobacco Use Types Packs/Day Years [...] a year ago. He was diagnosed at [facility] during an ER hospital stay. Patient [...] metabolism documented in this encounter Care Teams Department Manager Relationship Specialty Start Date End Date Antonio Jerez MD PCP - General 07/25/10 12/22/[address] [place] [address] [place] [address] documented as of this encounter
--- OUTSIDE RECORDS SUMMARY | 2022-02-14 15:07 | XMS_ITS | Encounter Summary ---
:1970 Author Organization [employer] Address [address] [place] [address] Care Team Providers Name Role Phone Lilian Persaud DO Primary Care Provider Reason for Visit Reason Comments Follow-up Encounter Details Date Type Department Care Team Description 01/22/2011 Office Visit [place] [facility] Lilian Persaud, DM (ralph betes mellitus) type II uncontrolled with renal manifestation (Primary Dx); Medicine DO Hypertriglyceridemia; [address] Erectile dysfunction; [place] [address] [place], [place] Tobacco use disorder; [phone] Chest pain Social History Tobacco Use [...] denies any history of pancreatitis. Patient's last [id number] was 10.0. Patient has a history of [...] ago. He has not been to the hospital nurse since. Ongoing for a several weeks. No [...] 5' 9.5 (176.5 cm) Weight: 217 lb (23724 g) General: Patient alert, in NAD. Left [...] unspecified documented in this encounter Care Teams Watch Crystal Grinder Relationship Specialty Start Date End Date Lilian Persaud DO PCP - General 12/23/10 05/16/12 [address]363 [place] [address] documented as of this encounter
--- OUTSIDE RECORDS SUMMARY | 2022-02-14 15:07 | XMS_ITS | Encounter Summary ---
:1970 Author Organization [facility] Address [address] [place] [address] Care Team Providers Name Role Phone Antonio Jerez MD Primary Care Provider Encounter Details Date Type Department Care Team Description 12/11/2010 Notes/Orders Lilian Camejo, Pure hyperglyceridemia; Medicine DO DM w/o complication type II, uncontrolle d 14[address] [facility] . [address] [place] [address] [place], [place] [phone] [address] Social History Tobacco Use Types Packs/Day Years Used Date Smoking Tobacco: Never Assessed Sex Assigned at Date Recorded Not on file documented as of this encounter Plan of Treatment Not on filedocumented as of this encounter Visit Diagnoses Diagnosis Pure hyperglyceridemia (HRC) Pure hyperglyceridemia Type II or unspecified type diabetes jasen litus without mention of complication, uncontrolled documented in this encounter Care Teams Surgical Dressing Maker Relationship Specialty Start Date End Date Antonio Jerez MD PCP - General 07/25/10 12/22/10 1415 [place] [address] documented as of this encounter
--- OUTSIDE RECORDS SUMMARY | 2022-02-14 15:07 | XMS_ITS | Encounter Summary ---
:1970 Author Organization [facility] Address [address] [place] [address] Care Team Providers Name Role Phone Lilian Persaud DO Primary Care Provider Encounter Details Date Type Department Care Team Description 12/23/2010 Notes/Orders Lilian Camejo Encount er for Medicine DO long-term (current) 1415 [facility] . [address] use of other [place] [address] [place], [place] medications (Primary [phone] Dx) Social History Tobacco Use Types Packs/Day Years Used Date Smoking Tobacco: Never Assessed Sex Assigned at Date Recorded Not on file documented as of this encounter Plan of Treatment Not on filedocumented as of this encounter Visit Diagnoses Diagnosis Encounter for long-term (current) use of other medications - Primary documented in this encounter Care Teams Front Office Agent Relationship Specialty Start Date End Date Lilian Persaud DO PCP - General 12/23/10 05/16/12 14[address] [place] [address] documented as of this encounter
--- OUTSIDE RECORDS SUMMARY | 2022-02-14 15:07 | XMS_ITS | Encounter Summary ---
:1970 Author Organization [employer] Address [address] [place] [address] Care Team Providers Name Role Phone Lilian Persaud DO Primary Care Provider Reason for Visit Reason Comments Diabetic Concern Encounter Details Date Type Department Care Team Description 03/25/2011 Telephone [facility] Lilian Persaud, Diabetic Concern [address] [address] [place] [address] [place] [address] [phone] (Wo rk) Social History Tobacco Use Types Packs/Day Years Used Date Smoking Tobacco: Never Assessed Sex Assigned at Date Recorded Not on file documented as of this encounter Nursing Notes Gagandeep Hinojosa MD - 03/25/2011 11:41 PM CST Done Nani Rojas LPN - 03/25/2011 11:08 AM CST Pt notified as advised. Expresses understanding. States is out of Metformin, so, requests refill to [facility] in [place]. Gagandeep Sosa MD - 03/25/2011 10:53 AM CST Call pt. Could restartr metformin 1000 mg daily to start, then BID. If vomiting resumes, discontinuemetformin and consider alternative med ING DIRECTOR Marci Oliveira, RN - 03/25/2011 9:58 AM [...] or different plan? to clinician per distribution ING DIRECTOR Jessica Tirado - 03/25/2011 9:52 AM CST Front Line Sx Call Primary Acid Retort Operator: Lilian Persaud DO Reason for call/symptom: pt would like to speak to nurse regarding high blood sugar ING DIRECTOR documented in this encounter Plan of Treatment Not on filedocumented as of this encounter Visit Diagnoses Not on filedocumented in this encounter Care Teams Injection Molding Process Technician Relationship Specialty Start Date End Date Lilian Persaud DO PCP - General 12/23/10 05/16/12 [address]15 [place] [address] documented as of this encounter
--- OUTSIDE RECORDS SUMMARY | 2022-02-14 15:07 | XMS_ITS | Encounter Summary ---
:1970 Author Organization [employer] Address [address] [place] [address] Care Team Providers Name Role Phone Lilian Persaud DO Primary Care Provider Encounter Details Date Type Department Care Team Description 12/23/2010 Lab Visit [facility] Encounter for long-term [address] (current) use of other [place] [address] medications [phone] Social History Tobacco Use Types Packs/Day Years [...] CDT Performed at [facility], [address] [place] [address] Lilian Persaud DO LAB_1 Performing Organization Address [facility] Phon e Number HP CONVERSION AST (12/23/2010 2:44 PM CDT) [facility] Method Time Signature Aspartate 26 0 - 45 HP CONVERSION Aminotransferase U/L Specimen Anatomical Collection Method Collection Time Receive d Time (Source) Location / / Volume Laterality 12/23/2010 2:44 PM 1 7:57 CDT PM CDT Narrative HP CONVERSION - 12/23/2010 8:20 PM CDT Performed at [facility], [address] [place] [address] Lilian Persaud DO LAB_1 Performing Organization Address [facility] Phon e Number HP CONVERSION ALT (SGPT) (12/23/2010 2:44 PM CDT) [facility] Method Time Signature Alanine 38 4 - 55 HP CONVERSION Aminotransferase U/L Specimen Anatomical Collection Method Collection Time Receive d Time (Source) Location / / Volume Laterality 12/23/2010 2:44 PM 1 7:57 CDT PM CDT Narrative HP CONVERSION - 12/23/2010 8:20 PM CDT Performed at [facility], [address] [place] [address] Lilian Persaud DO LAB_1 Performing Organization Address [facility] Phon e Number HP CONVERSION VENIPUNCTURE (SOBEIDA) (12/23/2010 2:38 PM CDT) athologist Signature Venipuncture Done HP CONVERSION Specimen (Source) Anatomical Collection Method Collection Time Re ceived Time Location / / Volume Laterality 12/23/2010 2:38 PM CDT Narrative HP CONVERSION - 12/23/2010 2:38 PM CDT Performed at [facility], [address] [place], [place] [address] [address] Lilian Persaud DO LAB_1 Performing Organization Address City/State/ZIP Code Phon e Number HP CONVERSION documented in this encounter Visit Diagnoses Diagnosis Encounter for long-term (current) use of other medications documented in this encounter Care Teams Dump Operator Relationship Specialty Start Date End Date Lilian Persaud DO PCP - General 12/23/10 05/16/[address] [place] [address] [place] [address] documented as of this encounter
--- OUTSIDE RECORDS SUMMARY | 2022-02-14 15:07 | XMS_ITS | Encounter Summary ---
:1970 Author Organization [employer] Address [address] [place] [address] Care Team Providers Name Role Phone Lilian Persaud DO Primary Care Provider Encounter Details Date Type Department Care Team Description 04/06/2011 Lab Visit [facility] Other disorders of lipoid me tabolism; [address] DM w/o complication type II, uncontrolled [place] [address] Social History Tobacco Use Types Packs/Day Years Used Date Smoking Tobacco: Never Assessed Sex Assigned at Date Recorded Not on file documented as of this encounter Plan of Treatment Not on filedocumented as of this encounter Procedures Procedure Name Priority Date/Time Associated Diagnosis Comme nts GLUCOSE Routine 04/06/2011 1:53 PM Type II or Results f or this COSTUME MISTRESS unspecified type procedure a re in diabetes mellitus the result s without mention of section. complication, uncontrolled (HRC) LIPID PANEL AND Routine 04/06/2011 1:53 PM Other disorders of Results for this DIRECT LDL(IF NEEDED) COSTUME MISTRESS lipoid metabolism p rocedure are in (HRC) the results section. ELECTROLYTE PANEL Routine 04/06/2011 1:53 PM Type II or Resu lts for this COSTUME MISTRESS unspecified type procedure a re in diabetes mellitus the result s without mention of section. complication, uncontrolled (HRC) HGB A1C Routine 04/06/2011 1:53 PM Type II or Results f or this COSTUME MISTRESS unspecified type procedure a re in diabetes mellitus the result s without mention of section. complication, uncontrolled (HRC) ALT (SGPT) Routine 04/06/2011 1:53 PM Other disorders of Res ults for this COSTUME MISTRESS lipoid metabolism procedure are in (HRC) the results section. AST Routine 04/06/2011 1:53 PM Other disorders of Res ults for this COSTUME MISTRESS lipoid metabolism procedure are in (HRC) the results section. VENIPUNCTURE (SOBEIDA) Routine 04/06/2011 Results for this procedure are i n the results section. documented in this encounter Results (ABNORMAL) Hgb A1c (04/06/2011 1:53 PM COSTUME MISTRESS) athologist [facility] HGB A1C 9.9 (H) 0.0 - 6.0 % HP CONVERSION Specimen Anatomical Collection Method Collection Time Receive d Time (Source) Location / / Volume Laterality 04/06/2011 1:53 PM 1 8:50 COSTUME MISTRESS PM COSTUME MISTRESS Lilian Persaud DO LAB_1 Performing Organization Address [facility] Phon e Number HP CONVERSION (ABNORMAL) GLUCOSE (04/06/2011 1:53 PM COSTUME MISTRESS) athologist [facility] Lab Glucose 236 (H) 60 - 100 HP CONVERSION mg/dL Specimen Anatomical Collection Method Collection Time Receive d Time (Source) Location / / Volume Laterality 04/06/2011 1:53 PM 1 8:03 COSTUME MISTRESS PM COSTUME MISTRESS Narrative HP CONVERSION - 04/06/2011 8:23 PM COSTUME MIST[place] [address] Lilian Persaud DO LAB_1 Performing Organization Address [facility] Phon e Number HP CONVERSION (ABNORMAL) Electrolyte Panel (04/06/2011 1:53 PM COSTUME MISTRESS) athologist [facility] Sodium 132 (L) 137 - 147 HP CONVERSION mEq/L Potassium 4.5 3.5 - 5.2 HP CONVERSION mEq/L Chloride 99 98 - 110 HP CONVERSION mEq/L Bicarbonate 25 23 - 33 HP CONVERSION mmol/L Specimen Anatomical Collection Method Collection Time Receive d Time (Source) Location / / Volume Laterality 04/06/2011 1:53 PM 1 8:03 COSTUME MISTRESS PM COSTUME MISTRESS Narrative HP CONVERSION - 04/06/2011 8:23 PM COSTUME MISTRESS Performed at [facility], [address] [place] [address] Lilian Persaud DO LAB_1 Performing Organization Address [facility] Phon e Number HP CONVERSION (ABNORMAL) Lipid Panel and Direct LDL(If Needed) (04/06/2011 1:53 PM COSTUME MISTRESS) [facility] Method Time Signature Cholesterol 280 (H) [...] Volume Laterality 04/06/2011 1:53 PM 1 8:03 COSTUME MISTRESS PM COSTUME MISTRESS Narrative HP CONVERSION - 04/06/2011 8:23 PM COSTUME MISTRESS Performed at [facility], [address] [place] [address] Lilian Persaud DO LAB_1 Performing Organization Address [facility] Phon e Number HP CONVERSION AST (04/06/2011 1:53 PM COSTUME MISTRESS) [facility] Time Signature Aspartate 34 0 - 45 HP CONVERSION Aminotransferase U/L Specimen Anatomical Collection Method Collection Time Receive d Time (Source) Location / / Volume Laterality 04/06/2011 1:53 PM 1 8:03 COSTUME MISTRESS PM COSTUME MISTRESS Narrative HP CONVERSION - 04/06/2011 8:23 PM COSTUME MISTRESS Performed at [facility], [address] [place] [address] Lilian Persaud DO LAB_1 Performing Organization Address [facility] Phon e Number HP CONVERSION ALT (SGPT) (04/06/2011 1:53 PM COSTUME MISTRESS) [facility] Method Time Signature Alanine 45 4 - 55 HP CONVERSION Aminotransferase U/L Specimen Anatomical Collection Method Collection Time Receive d Time (Source) Location / / Volume Laterality 04/06/2011 1:53 PM 1 8:03 COSTUME MISTRESS PM COSTUME MISTRESS Narrative HP CONVERSION - 04/06/2011 8:23 PM COSTUME MISTRESS Performed at [facility], [address] [place] [address] Lilian Persaud DO LAB_1 Performing Organization Address City/State/ZIP Code Phon e Number HP CONVERSION VENIPUNCTURE (SOBEIDA) (04/06/2011) athologist Signature Venipuncture Done HP CONVERSION Specimen (Source) Anatomical Location Collection Method / Collectio n Time Received Time / Laterality Volume 04/06/2011 04/06/2011 Narrative HP CONVERSION - 04/06/2011 2:22 PM COSTUME MISTRESS Performed at [facility], [address] [facility] [place] [address] Lilian Persaud DO LAB_1 Performing Organization Address City/State/ZIP Code Phon e Number HP CONVERSION documented in this encounter Visit Diagnoses Diagnosis 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 Type II or unspecified type diabetes jasen litus without mention of complication, uncontrolled documented in this encounter Care Teams Fagot Heater Relationship Specialty Start Date End Date Lilian Persaud DO PCP - General 12/23/10 05/16/12 14[address] [facility] [place] [address] documented as of this encounter
--- OUTSIDE RECORDS SUMMARY | 2022-02-14 15:07 | XMS_ITS | Encounter Summary ---
:1970 Author Organization [employer] Address [address] [address] Care Team Providers Name Role Phone Antonio Jerez MD Primary Care Provider Encounter Details Date Type Department Care Team Description 12/21/2009 PN Conversion Only CONVERSION CONVERSION Ida Woodall MD [address] [place] [address] Social History Tobacco Use Types Packs/Day Years Used Date Smoking Tobacco: Never Assessed Sex Assigned at Date Recorded Not on file documented as of this encounter Plan of Treatment Not on filedocumented as of this encounter Visit Diagnoses Not on filedocumented in this encounter Care Teams Fisher Trammel Net Relationship Specialty Start Date End Date Antonio Jerez MD PCP - General 07/25/10 12/22/10 [address] [place], [place] [address] documented as of this encounter
--- OUTSIDE RECORDS SUMMARY | 2022-02-14 15:08 | XMS_ITS | Encounter Summary ---
:1970 Author Organization [facility] Address [address], [place] [address] Care Team Providers Name Role Phone Antonio Jerez MD Primary Care Provider Encounter Details Date Type Department Care Team Description 06/13/2008 Sponge Packer Only CONVERSION CONVERSION Vane Zarate MD [address] [place], [place] [address] (Wo rk) Social History [...] 1104 Note Time: 06/13/08 0001 Status: Signed Bleach Boiler Puller: Vane Zarate MD (Physician) Addendum: Patient's tabular typist, Radha, accompanied him and understood all recommendations and safety related planning. TS SPECIALIST documented in this encounter Plan of Treatment Not on filedocumented as of this encounter Visit Diagnoses Not on filedocumented in this encounter Care Teams Airport Electrician Relationship Specialty Start Date End Date Antonio Jerez MD PCP - General 07/25/10 12/22/10 [address] [place] [address] documented as of this encounter
--- OUTSIDE RECORDS SUMMARY | 2022-02-14 15:08 | XMS_ITS | Encounter Summary ---
:1970 Author Organization [facility] Address [address] [address] Care Team Providers Name Role Phone Antonio Jerez MD Primary Care Provider Encounter Details Date Type Department Care Team Description 03/17/2009 PN Conversion Only [place] CONVERSION Antonio Jerez, [address] [facility] [place] [address] [address] [facility] [place] [address] (Wo rk) Social History Tobacco Use Types Packs/Day Years Used Date Smoking Tobacco: Never Assessed Sex Assigned at Date Recorded Not on file documented as of this encounter Plan of Treatment Not on filedocumented as of this encounter Procedures Procedure Name Priority Date/Time Associated Comments Diagnosis GLUCOSE Routine 03/17/2009 1:20 PM Results f or this STREAM CONTROL OFFICER procedure are i n the results section. THYROID STIMULATING Routine 03/17/2009 1:20 PM Re sults for this HORMONE STREAM CONTROL OFFICER procedure are i n the results section. documented in this encounter Results THYROID STIMULATING HORMONE (03/17/2009 1:20 PM STREAM CONTROL OFFICER) athologist Signature Thyroid 1.53 0.20 - HP CONVERSION Stimulating 4.50 Hormone uIU/mL Specimen (Source) Anatomical Collection Method Collection Time Re ceived Time Location / / Volume Laterality 03/17/2009 1:20 PM STREAM CONTROL OFFICER Antonio Jerez MD LAB_1 Performing Organization Address City/State/ZIP Code Phon e Number HP CONVERSION (ABNORMAL) GLUCOSE (03/17/2009 1:20 PM STREAM CONTROL OFFICER) P athologist Signature Lab Glucose 119 (H) 60 - 100 HP CONVERSION mg/dL Specimen (Source) Anatomical Collection Method Collection Time Re ceived Time Location / / Volume Laterality 03/17/2009 1:20 PM STREAM CONTROL OFFICER Antonio Jerez MD LAB_1 Performing Organization Address City/State/ZIP Code Phon e Number HP CONVERSION documented in this encounter Visit Diagnoses Not on filedocumented in this encounter Care Teams Biometrics Specialist Relationship Specialty Start Date End Date Antonio Jerez MD PCP - General 07/25/10 12/22/[address] [place] [address] [place] [address] documented as of this encounter
--- OUTSIDE RECORDS SUMMARY | 2022-02-14 15:08 | XMS_ITS | Encounter Summary ---
:1970 Author [facility] Address [address] [address] Care Team Providers Name Role Phone Antonio Jerez MD Primary Care Provider Encounter Details Date Type Department Care Team Description 10/08/2009 PN Conversion Only OTHER CONVERSION [address] [place] [address] Social History Tobacco Use Types Packs/Day Years Used Date Smoking Tobacco: Never Assessed Sex Assigned at Date Recorded Not on file documented as of this encounter Plan of Treatment Not on filedocumented as of this encounter Visit Diagnoses Not on filedocumented in this encounter Care Teams Separator Operator Relationship Specialty Start Date End Date Antonio Jerez MD PCP - General 07/25/10 12/22/10 [address] [place] [address] documented as of this encounter
--- OUTSIDE RECORDS SUMMARY | 2022-02-14 15:08 | XMS_ITS | Encounter Summary ---
:1970 Author Organization [facility] Address [address] [address] Care Team Providers Name Role Phone Antonio Jerez MD Primary Care Provider Encounter Details Date Type Department Care Team Description 10/08/2009 PN Conversion Only ORIENTAL ORTHODOX CONVERSION Richie Woodall MD [address] [place], [place] [address] Social History Tobacco Use Types Packs/Day Years [...] section. documented in this encounter Results [facility] Stress Echocardiogram (10/08/2009 11:59 AM CDT) Specimen [...] on filedocumented in this encounter Care Teams Excellence Consultant Relationship Specialty Start Date End Date Antonio Jerez MD PCP - General 07/25/10 12/22/[address] [place] [address] documented as of this encounter
--- OUTSIDE RECORDS SUMMARY | 2022-02-14 15:08 | XMS_ITS | Encounter Summary ---
:1970 Author Organization [facility] Address [address] [place] [address] Care Team Providers Name Role Phone Michel Daniel MD Primary Care Provider Encounter Details Date Type Department Care Team Description 03/17/2009 Office Visit [facility] Michel Daniel MD [address] [facility] . [address] [place] [address] [place] [address] [phone] (Wo rk) Social History Tobacco Use Types Packs/Day Years Used Date Smoking Tobacco: Never Assessed Sex Assigned at Date Recorded Not on file documented as of this encounter Last Filed Vital Signs Vital Sign Reading Time Taken Comments Blood Pressure 134/76 03/17/2009 12:46 PM STRAIGHTENING MACHINE FEEDER Pulse 88 03/17/2009 12:46 PM STRAIGHTENING MACHINE FEEDER Temperature - - Respiratory Rate - - Oxygen Saturation - - Inhaled Oxygen Concentration - - Weight 98.8 kg (217 lb 11.6 oz) 03/17/2009 12:46 PM C: 98.8kg STRAIGHTENING MACHINE FEEDER Height - - Body Mass Index 31.24 06/24/2008 12:32 PM STRAIGHTENING MACHINE FEEDER documented in this encounter Progress Notes Michel Daniel MD - 03/17/2009 12:01 AM CST Progress Notes signed by Michel Daniel MD at 03/19/09 0717 Author: Michel Daniel MD Service: (none) Author Type: Physician Filed: 08/15/10 1816 Note Time: 03/17/09 0001 Status: Signed Fine Arts Teacher: Michel Daniel MD (Physician) NAME: SHARLENE VARNER MR#: [id number] ACCT: [id number] VISIT: [id number] DICTATING CLINICIAN: MICHEL DANIEL MD CONFIRM #: [id number] LOC: 1202 CLINIC PROGRESS NOTE DATE OF [...] Vane Zarate, who evidently will be leaving [facility], but he states that he intends to follow her privately into her private office. He was seen by Dr. Zarate on 03/10 and medicine was adjusted at that time and Risperdal was added. He states that he developed muscle spasms, was in the emergency room at [facility] over the weekend. Was started on Benadryl. Had medication change control analyst the telephone on 03/14 when Stelazine, which [...] get back to him with above results. AAS:[id number] C: 03/17/09 15:06 CONFIRM #: [id number] IGHTENING MACHINE FEEDER documented in this encounter Plan of Treatment Not on filedocumented as of this encounter Visit Diagnoses Not on filedocumented in this encounter Care Teams Heel Seat Fitter Machine Relationship Specialty Start Date End Date Michel Daniel MD PCP - General 07/25/10 12/22/10 [address] [facility] [place] [address] documented as of this encounter
--- OUTSIDE RECORDS SUMMARY | 2022-02-14 15:08 | XMS_ITS | Encounter Summary ---
:1970 Author Organization [facility] Address [address] [place] [address] Care Team Providers Name Role Phone Antonio Jerez MD Primary Care Provider Encounter Details Date Type Department Care Team Description 06/11/2008 Logistics Associate Only CONVERSION CONVERSION Vane Zarate MD [address] [place], [place] [address] (Wo rk) Social History [...] 1059 Note Time: 06/11/08 0001 Status: Signed Herb Digger: Vane Zarate MD (Physician) patient did not appear for this appointment. he was seen in an urgent appointment yesterday; t withhis one might have been scheduled as a backup or in error. E ADVISOR documented in this encounter Plan of Treatment Not on filedocumented as of this encounter Visit Diagnoses Not on filedocumented in this encounter Care Teams Acid Recovery Operator Relationship Specialty Start Date End Date Antonio Jerez MD PCP - General 07/25/10 12/22/10 [address] [place] [address] documented as of this encounter
--- OUTSIDE RECORDS SUMMARY | 2022-02-14 15:08 | XMS_ITS | Encounter Summary ---
:1970 Author Organization [facility] Address [address] [place] [address] Care Team Providers Name Role Phone Antonio Jerez MD Primary Care Provider Encounter Details Date Type Department Care Team Description 03/06/2009 PN Conversion Only Vane Cox MD [address] [place] [address] [address] [place] [address] Social History Tobacco Use Types Packs/Day Years Used Date Smoking Tobacco: Never Assessed Sex Assigned at Date Recorded Not on file documented as of this encounter Plan of Treatment Not on filedocumented as of this encounter Procedures Procedure Name Priority Date/Time Associated Diagnosis Comme nts AMYLASE Routine 03/06/2009 7:50 PM Results f or this FAMILY NURSE PRACTITIONER procedure are i n the results section. GT (GAMMA GT) Routine 03/06/2009 7:50 PM Results for this FAMILY NURSE PRACTITIONER procedure are i n the results section. ALT (SGPT) Routine 03/06/2009 7:50 PM Results f or this FAMILY NURSE PRACTITIONER procedure are i n the results section. AST Routine 03/06/2009 7:50 PM Results f or this FAMILY NURSE PRACTITIONER procedure are i n the results section. ALKALINE Routine 03/06/2009 7:50 PM Results f or this PHOSPHATASE, TOTAL FAMILY NURSE PRACTITIONER procedure are in the results section. documented in this encounter Results (ABNORMAL) GT (Gamma GT) (03/06/2009 7:50 PM FAMILY NURSE PRACTITIONER) [facility] Method Time Signature Gamma-Glutamyl 169 (H) 1 - 48 U/L HP CONVERSION Transferase Specimen (Source) Anatomical Collection Method Collection Time Re ceived Time Location / / Volume Laterality 03/06/2009 7:50 PM FAMILY NURSE PRACTITIONER Vane Zarate MD LAB_1 Performing Organization Address City/[facility]/ZIP Code Phon e Number HP CONVERSION (ABNORMAL) AST (03/06/2009 7:50 PM FAMILY NURSE PRACTITIONER) [facility] gist Method Time Signature Aspartate 62 (H) 0 - 45 HP CONVERSION Aminotransferase U/L Specimen (Source) Anatomical Collection Method Collection Time Re ceived Time Location / / Volume Laterality 03/06/2009 7:50 PM FAMILY NURSE PRACTITIONER Vane Zarate MD LAB_1 Performing Organization Address City/[facility]/ZIP Code Phon e Number HP CONVERSION Amylase (03/06/2009 7:50 PM FAMILY NURSE PRACTITIONER) athologist Signature Amylase Serum 58 25 - 115 HP CONVERSION U/L Specimen (Source) Anatomical Collection Method Collection Time Re ceived Time Location / / Volume Laterality 03/06/2009 7:50 PM FAMILY NURSE PRACTITIONER Vane Zarate MD LAB_1 Performing Organization Address City/[facility]/ZIP Code Phon e Number HP CONVERSION (ABNORMAL) ALT (SGPT) (03/06/2009 7:50 PM FAMILY NURSE PRACTITIONER) [facility] gist Method Time Signature Alanine 58 (H) 4 - 55 HP CONVERSION Aminotransferase U/L Specimen (Source) Anatomical Collection Method Collection Time Re ceived Time Location / / Volume Laterality 03/06/2009 7:50 PM FAMILY NURSE PRACTITIONER Vane Zarate MD LAB_1 Performing Organization Address City/[facility] Code Phon e Number HP CONVERSION Alkaline Phosphatase, Total (03/06/2009 7:50 PM FAMILY NURSE PRACTITIONER) athologist Signature Alk Phos 63 25 - 135 U/L HP CONVERSION Specimen (Source) Anatomical Collection Method Collection Time Re ceived Time Location / / Volume Laterality 03/06/2009 7:50 PM FAMILY NURSE PRACTITIONER Vane Zarate MD LAB_1 Performing Organization Address City/[facility] Code Phon e Number HP CONVERSION documented in this encounter Visit Diagnoses Not on filedocumented in this encounter Care Teams Manager Sterile Processing Relationship Specialty Start Date End Date Antonio Jerez MD PCP - General 07/25/10 12/22/10 [address] [facility] [place] [address] documented as of this encounter
--- OUTSIDE RECORDS SUMMARY | 2022-02-14 15:08 | XMS_ITS | Encounter Summary ---
:1970 Author Organization [facility] Address [address], [place] [address] Care Team Providers Name Role Phone Antonio Jerez MD Primary Care Provider Encounter Details Date Type Department Care Team Description 06/09/2008 Solar Resource Assessor Only [place] [address] [facility] [address] [phone] (Wo rk) Social History Tobacco Use Types [...] 1057 Note Time: 06/09/08 0001 Status: Signed Navy Diver: Noemy Meade MD (Physician) Pt called lead simulation modeling engineer this AM at 5:36 AM wanting to [...] on Tue which he agreed to do. ETICS DIRECTOR documented in this encounter Plan of Treatment Not on filedocumented as of this encounter Visit Diagnoses Not on filedocumented in this encounter Care Teams Editor Managing Director Relationship Specialty Start Date End Date Antonio Jerez MD PCP - General 07/25/10 12/22/[address] [place] [address] documented as of this encounter
--- OUTSIDE RECORDS SUMMARY | 2022-02-14 15:08 | XMS_ITS | Encounter Summary ---
:1970 Author Organization [facility] Address [address] [address] Care Team Providers Name Role Phone Antonio Jerez MD Primary Care Provider Encounter Details Date Type Department Care Team Description 12/01/2009 Security Installer Only CONVERSION CONVERSION Ida Woodall MD [address] [place] [address] Social History Tobacco Use Types Packs/Day Years [...] 0023 Note Time: 12/01/09 0001 Status: Signed Burr Bench Hand: Erich Woodall MD (Physician) HOSPITAL DISCHARGE SUMMARY Patient Name: Timur Krishnamurthy Date of : 1970 Age: 39 y.o. Primary Physician: Antonio Jerez Admission Date: 11/29/2009 Discharge Date: 11/30/2009 He will be discharged from [facility] to home. 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 He was discharged [...] on filedocumented in this encounter Care Teams Ase Certified Technician Relationship Specialty Start Date End Date Antonio Jerez MD PCP - General 07/25/10 12/22/10 [address] [facility] [place] [address] documented as of this encounter
--- OUTSIDE RECORDS SUMMARY | 2022-02-14 15:08 | XMS_ITS | Encounter Summary ---
:1970 Author Organization [facility] Address [address] [place] [address] Care Team Providers Name Role Phone Antonio Jerez MD Primary Care Provider Encounter Details Date Type Department Care Team Description 01/16/2009 PN Conversion Only ASSISTANT CORPORATION COUNSEL 3850 CONV Vane Zarate MD [address] [place] [address] [address] [place] [address] Social History Tobacco Use Types Packs/Day Years [...] (01/16/2009 11:28 AM CDT) [facility] Signature Time Last Dose 2,230 No normal HP CONVERSION Valproic Acid range Date Last Dose [id number] No normal HP CONVERSION Valproic Acid range Valproic 105 (H) 50 - 100 HP CONVERSION Acid/Depakene ug/mL (Valp) Specimen (Source) Anatomical Collection Method Collection Time Re ceived Time Location / / Volume Laterality 01/16/2009 11:28 AM CDT Vane Zarate MD LAB_1 Performing Organization Address City/State/ZIP Code Phon e Number HP CONVERSION (ABNORMAL) GT (Gamma GT) (01/16/2009 11:28 AM CDT) [facility] Method Time Signature Gamma-Glutamyl 267 (H) 1 - 48 U/L HP CONVERSION Transferase Specimen (Source) Anatomical Collection Method Collection Time Re ceived Time Location / / Volume Laterality 01/16/2009 11:28 AM CDT Vane Zarate MD LAB_1 Performing Organization Address City/[facility]/ZIP Code Phon e Number HP CONVERSION AST (01/16/2009 11:28 AM CDT) [facility] Method Time Signature Aspartate 34 0 - 45 HP CONVERSION Aminotransferase U/L Specimen (Source) Anatomical Collection Method Collection Time Re ceived Time Location / / Volume Laterality 01/16/2009 11:28 AM CDT Vane Zarate MD LAB_1 Performing Organization Address City/[facility]/ZIP Code Phon e Number HP CONVERSION Amylase (01/16/2009 11:28 AM CDT) athologist Signature Amylase Serum 37 25 - 115 HP CONVERSION U/L Specimen (Source) Anatomical Collection Method Collection Time Re ceived Time Location / / Volume Laterality 01/16/2009 11:28 AM CDT Vane Zarate MD LAB_1 Performing Organization Address City/[facility]/ZIP Code Phon e Number HP CONVERSION (ABNORMAL) ALT (SGPT) (01/16/2009 11:28 AM CDT) [facility] gist Method Time Signature Alanine 57 (H) [...] Vane Zarate MD LAB_1 Performing Organization Address City/[facility] Code Phon e Number HP [...] - HP CONVERSION Hemoglobin Conc 36.5 gm/dL [place] RDW 11.2 11.0 - HP CONVERSION 15.0 [...] filedocumented in this encounter Care Teams Wood Gang Sawyer Relationship Specialty Start Date End Date Antonio Jerez MD PCP - General 07/25/10 12/22/10 [address] [facility] [place] [address] documented as of this encounter
--- OUTSIDE RECORDS SUMMARY | 2022-02-14 15:08 | XMS_ITS | Encounter Summary ---
:[address] [facility] Address [address], [place] [address] Care Team Providers Name Role Phone Antonio Jerez MD Primary Care Provider Encounter Details Date Type Department Care Team Description 11/29/2009 PN Conversion Only OTHER CONVERSION [address] [place] [address] Social History Tobacco Use Types Packs/Day Years Used Date Smoking Tobacco: Never Assessed Sex Assigned at Date Recorded Not on file documented as of this encounter Plan of Treatment Not on filedocumented as of this encounter Visit Diagnoses Not on filedocumented in this encounter Care Teams Fixed Wing Aircraft Flight Mechanic Relationship Specialty Start Date End Date Antonio Jerez MD PCP - General 07/25/10 12/22/10 [address] [place] [address] documented as of this encounter
--- OUTSIDE RECORDS SUMMARY | 2022-02-14 15:08 | XMS_ITS | Encounter Summary ---
:1970 Author Organization [facility] Address [address], [place] [address] Care Team Providers Name Role Phone Antonio Jerez MD Primary Care Provider Encounter Details Date Type Department Care Team Description 12/01/2009 PN Conversion Only BUDDHIST CONVERSION Richie Woodall MD [address] [place] [address] Social History Tobacco Use Types Packs/Day Years Used Date Smoking Tobacco: Never Assessed Sex Assigned at Date Recorded Not on file documented as of this encounter Plan of Treatment Not on filedocumented as of this encounter Visit Diagnoses Not on filedocumented in this encounter Care Teams Germ Drier Relationship Specialty Start Date End Date Antonio Jerez MD PCP - General 07/25/10 12/22/10 [address] [place], [place] [address] documented as of this encounter
--- OUTSIDE RECORDS SUMMARY | 2022-02-14 15:08 | XMS_ITS | Encounter Summary ---
:1970 Author Organization [facility] Address [address], [place] [address] Care Team Providers Name Role Phone Antonio Jerez MD Primary Care Provider Encounter Details Date Type Department Care Team Description 07/03/2008 Buccaro Only CONVERSION CONVERSION Vane Zarate MD [address] [place], [place] [address] (Wo rk) Social History [...] 1137 Note Time: 07/03/08 0001 Status: Signed Seed Expert: Vane Zarate MD (Physician) Please accept this note as documentation that I saw Mr. Krishnamurthy today and he he appears to be restored to a euthymic state and also appears safe to drive. Thank you very much. documented in this encounter Plan of Treatment Not on filedocumented as of this encounter Visit Diagnoses Not on filedocumented in this encounter Care Teams Diesel Engine Specialist Relationship Specialty Start Date End Date Antonio Jerez MD PCP - General 07/25/10 12/22/10 [address] [place] [id number] documented as of this encounter
--- OUTSIDE RECORDS SUMMARY | 2022-02-14 15:08 | XMS_ITS | Encounter Summary ---
:1970 Author Organization [facility] Address [address], [place] [address] Care Team Providers Name Role Phone Antonio Jerez MD Primary Care Provider Encounter Details Date Type Department Care Team Description 06/11/2008 PN Conversion Only [place] [email or web address] [place] [address] [address] [place] [address] Social History Tobacco Use Types Packs/Day Years Used Date Smoking Tobacco: Never Assessed Sex Assigned at Date Recorded Not on file documented as of this encounter Plan of Treatment Not on filedocumented as of this encounter Procedures Procedure Name Priority Date/Time Associated Comments Diagnosis ELECTROLYTES (NA, K, Routine 06/11/2008 4:59 PM R esults for this CL, BICARB) ENVIRONMENTAL HEALTH PHYSICIAN procedure are i n the results section. COMPLETE BLOOD Routine 06/11/2008 4:59 PM Results for this COUNT-W/DIFF ENVIRONMENTAL HEALTH PHYSICIAN procedure are i n the results section. AMYLASE Routine 06/11/2008 4:59 PM Results f or this ENVIRONMENTAL HEALTH PHYSICIAN procedure are i n the results section. VALPROIC ACID Routine 06/11/2008 4:59 PM Results for this (DEPAKENE) ENVIRONMENTAL HEALTH PHYSICIAN procedure are i n the results section. ALT (SGPT) Routine 06/11/2008 4:59 PM Results f or this ENVIRONMENTAL HEALTH PHYSICIAN procedure are i n the results section. AST Routine 06/11/2008 4:59 PM Results f or this ENVIRONMENTAL HEALTH PHYSICIAN procedure are i n the results section. ALKALINE PHOSPHATASE, Routine 06/11/2008 4:59 PM Results for this TOTAL ENVIRONMENTAL HEALTH PHYSICIAN procedure are i n the results section. documented in this encounter Results (ABNORMAL) Complete Blood Count-W/Diff (06/11/2008 4:59 PM ENVIRONMENTAL HEALTH PHYSICIAN) [facility] Method Time Signature White Blood [...] - HP CONVERSION Hemoglobin Conc 36.5 gm/dL [place] RDW 11.0 11.0 - HP CONVERSION 15.0 [...] / / Volume Laterality 06/11/2008 4:59 PM ENVIRONMENTAL HEALTH PHYSICIAN Vane Zarate MD LAB_1 Performing Organization Address City/State/ZIP Code Phon e Number HP CONVERSION Alkaline Phosphatase, Total (06/11/2008 4:59 PM ENVIRONMENTAL HEALTH PHYSICIAN) athologist Signature Alk Phos 55 25 - 135 U/L HP CONVERSION Specimen (Source) Anatomical Collection Method Collection Time Re ceived Time Location / / Volume Laterality 06/11/2008 4:59 PM ENVIRONMENTAL HEALTH PHYSICIAN Vane Zarate MD LAB_1 Performing Organization Address City/State/ZIP Code Phon e Number HP CONVERSION ALT (SGPT) (06/11/2008 4:59 PM ENVIRONMENTAL HEALTH PHYSICIAN) [facility] Method Time Signature Alanine 40 4 - 55 HP CONVERSION Aminotransferase U/L Specimen (Source) Anatomical Collection Method Collection Time Re ceived Time Location / / Volume Laterality 06/11/2008 4:59 PM ENVIRONMENTAL HEALTH PHYSICIAN Vane Zarate MD LAB_1 Performing Organization Address City/[facility]/ZIP Code Phon e Number HP CONVERSION Amylase (06/11/2008 4:59 PM ENVIRONMENTAL HEALTH PHYSICIAN) P athologist Signature Amylase Serum 53 25 - 115 HP CONVERSION U/L Specimen (Source) Anatomical Collection Method Collection Time Re ceived Time Location / / Volume Laterality 06/11/2008 4:59 PM ENVIRONMENTAL HEALTH PHYSICIAN Vane Zarate MD LAB_1 Performing Organization Address City/[facility]/ZIP Code Phon e Number HP CONVERSION AST (06/11/2008 4:59 PM ENVIRONMENTAL HEALTH PHYSICIAN) Patholo gist Method Time Signature Aspartate 45 0 - 45 HP CONVERSION Aminotransferase U/L Specimen (Source) Anatomical Collection Method Collection Time Re ceived Time Location / / Volume Laterality 06/11/2008 4:59 PM ENVIRONMENTAL HEALTH PHYSICIAN Vane Zarate MD LAB_1 Performing Organization Address City/[facility]/ZIP Code Phon e Number HP CONVERSION Electrolytes (NA, K, CL, Bicarb) (06/11/2008 4:59 PM ENVIRONMENTAL HEALTH PHYSICIAN) P athologist Signature Sodium 139 137 - 147 HP CONVERSION mEq/L Potassium 4.3 3.5 - 5.2 HP CONVERSION mEq/L Chloride 104 98 - 110 HP CONVERSION mEq/L Bicarbonate 26 23 - 33 HP CONVERSION mmol/L Specimen (Source) Anatomical Collection Method Collection Time Re ceived Time Location / / Volume Laterality 06/11/2008 4:59 PM ENVIRONMENTAL HEALTH PHYSICIAN Vane Zarate MD LAB_1 Performing Organization Address City/[facility] Phon e Number HP CONVERSION Valproic Acid (Depakene) (06/11/2008 4:59 PM ENVIRONMENTAL HEALTH PHYSICIAN) Analysis Performed At Patho logist Time Signature Time Last Dose 0900 No normal HP CONVERSION Valproic Acid range Date Last Dose 33KNW48 No normal HP CONVERSION Valproic Acid range Valproic 86 50 - 100 HP CONVERSION Acid/Depakene ug/mL (Valp) Specimen (Source) Anatomical Collection Method Collection Time Re ceived Time Location / / Volume Laterality 06/11/2008 4:59 PM ENVIRONMENTAL HEALTH PHYSICIAN Vane Zarate MD LAB_1 Performing Organization Address City/State/ZIP Code Phon e Number HP CONVERSION documented in this encounter Visit Diagnoses Not on filedocumented in this encounter Care Teams Freight Dispatcher Relationship Specialty Start Date End Date Antonio Jerez MD PCP - General 07/25/10 12/22/10 [address] [facility] [place] [address] documented as of this encounter
--- OUTSIDE RECORDS SUMMARY | 2022-02-14 15:08 | XMS_ITS | Encounter Summary ---
:1970 Author Organization [facility] Address [address], [place] [address] Care Team Providers Name Role Phone Antonio Jerez MD Primary Care Provider Encounter Details Date Type Department Care Team Description 07/30/2008 Neuroscience Specialist Only CONVERSION CONVERSION Vane Zarate MD [address] [place], [place] [address] (Wo rk) Social History [...] 1219 Note Time: 07/30/08 0001 Status: Signed Color Shop Helper: Vane Zarate MD (Physician) Please accept this note as documentation that I am recommending that Mr. Krishnamurthy return to work with no restrictions. Thank you very much. documented in this encounter Plan of Treatment Not on filedocumented as of this encounter Visit Diagnoses Not on filedocumented in this encounter Care Teams Bulk Tank Driver Relationship Specialty Start Date End Date Antonio Jerez MD PCP - General 07/25/10 12/22/10 [address] [place] [address] documented as of this encounter
--- OUTSIDE RECORDS SUMMARY | 2022-02-14 15:08 | XMS_ITS | Encounter Summary ---
:1970 Author Organization [facility] Address [address] [address] Care Team Providers Name Role Phone Antonio Jerez MD Primary Care Provider Encounter Details Date Type Department Care Team Description 11/06/2009 PN Conversion Only OTHER CONVERSION [address] [place] [address] Social History Tobacco Use Types Packs/Day Years Used Date Smoking Tobacco: Never Assessed Sex Assigned at Date Recorded Not on file documented as of this encounter Plan of Treatment Not on filedocumented as of this encounter Visit Diagnoses Not on filedocumented in this encounter Care Teams Clinical Pharmacy Specialist Relationship Specialty Start Date End Date Antonio Jerez MD PCP - General 07/25/10 12/22/10 [address] [place] [address] documented as of this encounter
--- OUTSIDE RECORDS SUMMARY | 2022-02-14 15:08 | XMS_ITS | Encounter Summary ---
:1970 Author Organization [facility] Address [address], [place] [address] Care Team Providers Name Role Phone Antonio Jerez MD Primary Care Provider Encounter Details Date Type Department Care Team Description 07/13/2009 Office Visit [facility] [place] [address] [place] [address] Social History Tobacco Use Types [...] 12:01 AM CDT NAME: SHARLENE VARNER MR#: [id number] ACCT: [id number] VISIT: [id number] DICTATING CLINICIAN: HAILEE VILLARREAL MD CONFIRM #: [id number] LOC: 520 CLINIC PROGRESS NOTE DATE OF VISIT: 07/13/2009 SUBJECTIVE: This 39-year-old male comes in with a few concerns. He has a history of bipolar and has been seen by a psychiatrist in the past. His primary psychiatrist is Dr. Vane Woo, currently does not work at [facility], and he has continued to see her [...] Xanax at night to avoid taking Benadryl. [id number] C: 07/13/09 10:14 CONFIRM #: [id number] documented in this encounter Plan of Treatment Not on filedocumented as of this encounter Visit Diagnoses Not on filedocumented in this encounter Care Teams Ed Teacher Relationship Specialty Start Date End Date Antonio Jerez MD PCP - General 07/25/10 12/22/10 [facility] [place] [address] documented as of this encounter
--- OUTSIDE RECORDS SUMMARY | 2022-02-14 15:08 | XMS_ITS | Encounter Summary ---
:1970 Author Organization [facility] Address [address] [place] [address] Care Team Providers Name Role Phone Antonio Jerez MD Primary Care Provider Encounter Details Date Type Department Care Team Description 06/24/2008 Office Visit [facility] Antonio Jerez MD [address] [facility] . [address] [facility] [place] [address] [place] [address] (Wo rk) Social History Tobacco Use Types Packs/Day Years Used Date Smoking Tobacco: Never Assessed Sex Assigned at Date Recorded Not on file documented as of this encounter Plan of Treatment Not on filedocumented as of this encounter Visit Diagnoses Not on filedocumented in this encounter Care Teams Health Care Marketing Manager Relationship Specialty Start Date End Date Antonio Jerez MD PCP - General 07/25/10 12/22/10 [address] [facility] [address] documented as of this encounter
--- OUTSIDE RECORDS SUMMARY | 2022-02-14 15:08 | XMS_ITS | Encounter Summary ---
:1970 Author Organization [facility] Address [address], [place] [address] Care Team Providers Name Role Phone Antonio Jerez MD Primary Care Provider Encounter Details Date Type Department Care Team Description 10/08/2009 Cooker Sulfate Only CONVERSION CONVERSION Ida Woodall MD [address] [place] [address] Social History Tobacco Use Types Packs/Day Years Used Date Smoking Tobacco: Never Assessed Sex Assigned at Date Recorded Not on file documented as of this encounter Progress Notes Erich Woodall MD - 10/08/2009 12:01 AM CDT Progress Notes signed by Erich Woodall MD at 10/08/09 9669 Author: Erich Woodall MD Service: (none) Author Type: Physician Filed: 08/15/10 7564 Note Time: 10/08/09 0001 Status: Signed Industrial Workers: Erich Woodall MD (Physician) HOSPITAL DISCHARGE SUMMARY Patient Name: Timur Krishnamurthy Date of : 1970 Age: 39 y.o. Primary Physician: Antonio Jerez Admission Date: 10/07/2009 Discharge Date: 10/08/2009 He will be discharged from [facility] to home. PRINCIPAL DISCHARGE DIAGNOSIS: [...] filedocumented in this encounter Care Teams Hop Trainer Relationship Specialty Start Date End Date Antonio Jerez MD PCP - General 07/25/10 12/22/10 [address] [facility] [place] [address] documented as of this encounter
--- OUTSIDE RECORDS SUMMARY | 2022-02-14 15:08 | XMS_ITS | Encounter Summary ---
:1970 [facility] Address [address] [address] Care Team Providers Name Role Phone Antonio Jerez MD Primary Care Provider Encounter Details Date Type Department Care Team Description 01/17/2009 Retail Product Demo Specialist Only CONVERSION CONVERSION Vane Zarate MD [address] [place], [place] [address] (Wo rk) Social History [...] 1640 Note Time: 01/17/09 0001 Status: Signed Manager Logistic: Vane Zarate MD (Physician) blood work shows elevated ALT and GGT, and depakote level of 105. Advised patient we may need to look at different mood stabilizer. documented in this encounter Plan of Treatment Not on filedocumented as of this encounter Visit Diagnoses Not on filedocumented in this encounter Care Teams Crate Icer Relationship Specialty Start Date End Date Antonio Jerez MD PCP - General 07/25/10 12/22/10 [address] [place] [address] documented as of this encounter
--- OUTSIDE RECORDS SUMMARY | 2022-02-14 15:08 | XMS_ITS | Encounter Summary ---
:1970 Author Organization [facility] Address [address] [place] [address] Care Team Providers Name Role Phone Michel Daniel MD Primary Care Provider Encounter Details Date Type Department Care Team Description 03/24/2009 Office Visit [facility] Michel Daniel MD [address] [facility] . [address] [place] [address] [place] [address] [phone] (Wo rk) Social History Tobacco Use Types Packs/Day Years Used Date Smoking Tobacco: Never Assessed Sex Assigned at Date Recorded Not on file documented as of this encounter Last Filed Vital Signs Vital Sign Reading Time Taken Comments Blood Pressure 128/76 03/24/2009 1:14 PM CLEANER GREASER Pulse 88 03/24/2009 1:14 PM CLEANER GREASER Temperature - - Respiratory Rate - - Oxygen Saturation - - Inhaled Oxygen Concentration - - Weight 99.5 kg (219 lb 4 oz) 03/24/2009 1:14 PM CLEANER GREASER C: 99.5kg Height - - Body Mass Index 31.46 06/24/2008 12:32 PM CLEANER GREASER documented in this encounter Progress Notes Michel Daniel MD - 03/24/2009 12:01 AM CST Progress Notes signed by Michel Daniel MD at 03/25/09 0748 Author: Michel Daniel MD Service: (none) Author Type: Physician Filed: 08/15/10 1824 Note Time: 03/24/09 0001 Status: Signed Horticultural Specialty Grower Inside: Michel Daniel MD (Physician) NAME: SHARLENE VARNER MR#: [id number] ACCT: [id number] VISIT: [id number] DICTATING CLINICIAN: MICHEL DANIEL MD CONFIRM #: [id number] LOC: 1202 CLINIC PROGRESS NOTE DATE OF [...] attempt to lose some weight. Recheck p.r.n. AAS:[id number] C: 03/24/09 16:45 CONFIRM #: [id number] NER GREASER documented in this encounter Plan of Treatment Not on filedocumented as of this encounter Visit Diagnoses Not on filedocumented in this encounter Care Teams Freelance Interpreter/Translator Relationship Specialty Start Date End Date Michel Daniel MD PCP - General 07/25/10 12/22/10 [address] [place] [address] documented as of this encounter
--- OUTSIDE RECORDS SUMMARY | 2022-02-14 15:08 | XMS_ITS | Encounter Summary ---
:1970 Author [facility] Address [address] [address] Care Team Providers Name Role Phone Antonio Jerez MD Primary Care Provider Encounter Details Date Type Department Care Team Description 02/24/2009 Director Targeted Marketing Only CONVERSION CONVERSION Vane Zarate MD [address] [place], [place] [address] (Wo rk) Social History Tobacco Use Types Packs/Day Years Used Date Smoking Tobacco: Never Assessed Sex Assigned at Date Recorded Not on file documented as of this encounter Progress Notes Vane Zarate MD - 02/24/2009 12:01 AM CST Progress Notes signed by Vane Zarate MD at 02/24/09 1102 Author: Vane Zarate MD Service: (none) Author Type: Physician Filed: 08/15/10 6989 Note Time: 02/24/09 0001 Status: Signed Child Life Specialist: Vane Zarate MD (Physician) Please accept this note as documentation that Mr. Krishnamurthy will need to miss work until March 03 owing to medication adjustments. Thank you for your attention. T COORDINATOR MARKETING AND SALES documented in this encounter Plan of Treatment Not on filedocumented as of this encounter Visit Diagnoses Not on filedocumented in this encounter Care Teams Relay Adjuster Relationship Specialty Start Date End Date Antonio Jerez MD PCP - General 07/25/10 12/22/10 [address] [place] [address] documented as of this encounter
--- OUTSIDE RECORDS SUMMARY | 2022-02-14 15:09 | XMS_ITS | Encounter Summary ---
:1970 Author Organization [facility] Address [address] [address] Care Team Providers Name Role Phone Antonio Jerez MD Primary Care Provider Encounter Details Date Type Department Care Team Description 08/04/2007 PN [facility] Kevin Guaman, [address] [place] [address] [address] [facility] [address] [place] [address] Social History Tobacco Use Types [...] (ABNORMAL) ALT (SGPT) (08/04/2007 8:30 AM CDT) [facility] gist Method Time Signature Alanine 73 (H) [...] CONVERSION Valproic Acid range Date Last Dose [id number] No normal HP CONVERSION Valproic Acid range [...] on filedocumented in this encounter Care Teams Coiled Tubing Operator Relationship Specialty Start Date End Date Antonio Jerez MD PCP - General 07/25/10 12/22/10 [facility] [place] [address] documented as of this encounter
--- OUTSIDE RECORDS SUMMARY | 2022-02-14 15:09 | XMS_ITS | Encounter Summary ---
:1970 Author [facility] Address [address], [place] [address] Care Team Providers Name Role Phone Antonio Jerez MD Primary Care Provider Encounter Details Date Type Department Care Team Description 12/18/2004 PN Conversion Only [facility] Kevin Jordan, [address] [place] [address] [facility] [address] [place] [address] Social History Tobacco Use Types [...] on filedocumented in this encounter Care Teams Belt Builder Relationship Specialty Start Date End Date Antonio Jerez MD PCP - General 07/25/10 12/22/10 [address] [place] [address] documented as of this encounter
--- OUTSIDE RECORDS SUMMARY | 2022-02-14 15:09 | XMS_ITS | Encounter Summary ---
:1970 Author Organization [facility] Address [address], [place] [address] Care Team Providers Name Role Phone Antonio Jerez MD Primary Care Provider Encounter Details Date Type Department Care Team Description 08/04/2006 PN Conversion Only Kevin Blackburn, [address] [place] [address] [address] [facility] [address] [address] Social History Tobacco Use Types [...] (ABNORMAL) ALT (SGPT) (08/04/2006 8:30 AM CDT) [facility] gist Method Time Signature Alanine 59 [...] CONVERSION Valproic Acid range Date Last Dose [id number] No normal HP CONVERSION Valproic Acid range [...] in this encounter Care Teams Real Estate Listing Consultant Relationship Specialty Start Date End Date Antonio Jerez MD PCP - General 07/25/10 12/22/10 [facility]5 [facility] [place] [address] documented as of this encounter
--- OUTSIDE RECORDS SUMMARY | 2022-02-14 15:09 | XMS_ITS | Encounter Summary ---
:1970 Author Organization [facility] Address [address] [place] [address] Care Team Providers Name Role Phone Antonio Jerez MD Primary Care Provider Encounter Details Date Type Department Care Team Description 07/10/2002 PN Conversion Only QUAKER CONVERSION Kvng Jerez MD [address] [place], [place] [address] (Wo rk) Social History Tobacco Use Types Packs/Day Years Used Date Smoking Tobacco: Never Assessed Sex Assigned at Date Recorded Not on file documented as of this encounter Plan of Treatment Not on filedocumented as of this encounter Procedures Procedure Name Priority Date/Time Associated Diagnosis Comme nts ALT (SGPT) Routine 07/10/2002 2:10 PM Results f or this SSIS SSRS DEVELOPER procedure are i n the results section . AST Routine 07/10/2002 2:10 PM Results f or this SSIS SSRS DEVELOPER procedure are i n the results section . documented in this encounter Results ALT (SGPT) (07/10/2002 2:10 PM SSIS SSRS DEVELOPER) [facility] 11 Method Time Signature Alanine 58 0 - 65 HP CONVERSION Aminotransferase U/L Specimen (Source) Anatomical Collection Method Collection Time Re ceived Time Location / / Volume Laterality 07/10/2002 2:10 PM SSIS SSRS DEVELOPER Antonio Jerez MD LAB_1 Performing Organization Address City/State/ZIP Code Phon e Number HP CONVERSION AST (07/10/2002 2:10 PM SSIS SSRS DEVELOPER) [facility] 11 Method Time Signature Aspartate 36 0 - 45 HP CONVERSION Aminotransferase U/L Specimen (Source) Anatomical Collection Method Collection Time Re ceived Time Location / / Volume Laterality 07/10/2002 2:10 PM SSIS SSRS DEVELOPER Antonio Jerez MD LAB_1 Performing Organization Address City/State/ZIP Code Phon e Number HP CONVERSION documented in this encounter Visit Diagnoses Not on filedocumented in this encounter Care Teams Piano Accompanist Relationship Specialty Start Date End Date Antonio Jerez MD PCP - General 07/25/10 12/22/[address] [place] [address] documented as of this encounter
--- OUTSIDE RECORDS SUMMARY | 2022-02-14 15:09 | XMS_ITS | Encounter Summary ---
:1970 Author Organization [facility] Address [address] [place] [address] Care Team Providers Name Role Phone Michel Daniel MD Primary Care Provider Reason for Visit Reason Comments Other Encounter Details Date Type Department Care Team Description 03/20/2007 Telephone [facility], Alphonso Belcher RN Other [address] [facility] . [place], [place] [address] Social History Tobacco Use Types Packs/Day Years Used Date Smoking Tobacco: Never Assessed Sex Assigned at Date Recorded Not on file documented as of this encounter Progress Notes Herlinda Lucio HUC - 03/20/2007 8:44 AM CST Phone Note filed by Herlinda Akbar MA at 08/12/10919 Author: Herlinda Akbar MA Service: (none) Author Type: (none) Filed: 08/12/10919 Note Time: 03/20/07843 Status: Signed Acoustics Teacher: Niko Conversion Medication Issue/Refill Caller Name/Relationship:simone Primary Hvac/R Instructor:makenzie Comment/Symptom:pt is wondering if he should get more beta blockers Pharmacy [facility] Phone #[facility] Street or City:[place] Drug Name:metoprolol Strength:50mg Dose/Route/Freq:1/2 tab 2x daily Auto Dealership Porter:simone Best call back number:[phone] Is it OK to leave a confidential message on this voicemail?yes Created on 20Mar2007 8:44am by HERLINDA AKBAR On 20Mar2007 9:39am MICHEL DANIEL wrote: There does not appear to be a reason to be on beta blockers Acknowledged by MICHEL DANIEL on 9:39am On 20Mar2007 10:38am ALPHONSO QUESADA wrote: info given to pt as above. Acknowledged by ALPHONSO QUESADA on 10:38am WARDEN documented in this encounter Plan of Treatment Not on filedocumented as of this encounter Visit Diagnoses Not on filedocumented in this encounter Care Teams Technical Sales Specialist Relationship Specialty Start Date End Date Michel Daniel MD PCP - General 07/25/10 12/22/10 [address] [place] [address] documented as of this encounter
--- OUTSIDE RECORDS SUMMARY | 2022-02-14 15:09 | XMS_ITS | Encounter Summary ---
:1970 Author Organization [facility] Address [address], [place] [address] Care Team Providers Name Role Phone Antonio Jerez MD Primary Care Provider Encounter Details Date Type Department Care Team Description 10/08/2005 PN Conversion Only [facility] Antonio Philip, [address] [facility] [place] [place] [address] [address] [place], [place] [address] (Wo rk) Social History Tobacco Use [...] filedocumented in this encounter Care Teams Welfare Case Worker Relationship Specialty Start Date End Date Antonio Jerez MD PCP - General 07/25/10 12/22/10 [address] [place] [address] documented as of this encounter
--- OUTSIDE RECORDS SUMMARY | 2022-02-14 15:09 | XMS_ITS | Encounter Summary ---
:1970 Author [facility] Address [address], [place] [address] Care Team Providers Name Role Phone Antnoio Jerez MD Primary Care Provider Encounter Details Date Type Department Care Team Description 02/24/2007 Perinatology Physician Only CONVERSION Kya Hewitt RN Social History [...] 2249 Note Time: 02/24/07 0001 Status: Signed Horticulture Worker: Niko Barrios prior auth for [facility] approved #[id number] for as long as pt stays on plan-pharmacy called [facility] documented in this encounter Plan of Treatment Not on filedocumented as of this encounter Visit Diagnoses Not on filedocumented in this encounter Care Teams Yeast Culture Developer Relationship Specialty Start Date End Date Antonio Jerez MD PCP - General 07/25/10 12/22/10 [address] [facility] [place] [address] documented as of this encounter
--- OUTSIDE RECORDS SUMMARY | 2022-02-14 15:09 | XMS_ITS | Encounter Summary ---
:1970 Author Organization [facility] Address [address] [place] [address] Care Team Providers Name Role Phone Michel Daniel MD Primary Care Provider Encounter Details Date Type Department Care Team Description 02/28/2007 Office Visit [facility] Michel Daniel MD [address] [facility] . [address] [place] [address] [place] [address] [phone] (Wo rk) Social History Tobacco Use Types Packs/Day Years Used Date Smoking Tobacco: Never Assessed Sex Assigned at Date Recorded Not on file documented as of this encounter Last Filed Vital Signs Vital Sign Reading Time Taken Comments Blood Pressure 136/84 02/28/2007 2:19 PM IN STORE MARKETER Pulse 80 02/28/2007 2:19 PM IN STORE MARKETER Temperature - - Respiratory Rate - - Oxygen Saturation - - Inhaled Oxygen Concentration - - Weight 97.1 kg (213 lb 15.7 oz) 02/28/2007 2:19 PM IN STORE MARKETER C: 97.1kg Height - - Body Mass Index - - documented in this encounter Progress Notes Michel Daniel MD - 02/28/2007 12:01 AM CST Progress Notes signed by Michel Daniel MD at 03/06/07 0746 Author: Michel Daniel MD Service: (none) Author Type: Physician Filed: 08/14/10 2911 Note Time: 02/28/07 0001 Status: Signed Stogy Roller: Michel Daniel MD (Physician) NAME: SHARLENE VARNER MR#: [id number] ACCT: [id number] VISIT: [id number] DICTATING CLINICIAN: MICHEL DANIEL MD JOB: [id number] LOC: 1202 CLINIC PROGRESS NOTE DATE OF [...] of him being hyperthyroid are very low. AAS:[id number] C: 03/01/07 16:00 DOCUMENT: [id number] STORE MARKETER documented in this encounter Plan of Treatment Not on filedocumented as of this encounter Visit Diagnoses Not on filedocumented in this encounter Care Teams Superintendent Geophysical Laboratory Relationship Specialty Start Date End Date Michel Daniel MD PCP - General 07/25/10 12/22/10 [facility]5 [place] [address] documented as of this encounter
--- OUTSIDE RECORDS SUMMARY | 2022-02-14 15:09 | XMS_ITS | Encounter Summary ---
:1970 Author Organization [facility] Address [address], [place] [address] Care Team Providers Name Role Phone Antonio Jerez MD Primary Care Provider Encounter Details Date Type Department Care Team Description 05/26/2001 PN Conversion Only [place] [address] [place], [place] [address] Social History Tobacco Use Types Packs/Day Years Used Date Smoking Tobacco: Never Assessed Sex Assigned at Date Recorded Not on file documented as of this encounter Plan of Treatment Not on filedocumented as of this encounter Visit Diagnoses Not on filedocumented in this encounter Care Teams Administrative Representative Relationship Specialty Start Date End Date Antonio Jerez MD PCP - General 07/25/10 12/22/10 [address] [place] [address] documented as of this encounter
--- OUTSIDE RECORDS SUMMARY | 2022-02-14 15:09 | XMS_ITS | Encounter Summary ---
:1970 Author Organization [facility] Address [address] [place] [address] Care Team Providers Name Role Phone Antonio Jerez MD Primary Care Provider Encounter Details Date Type Department Care Team Description 08/17/2004 Office Visit [facility] Olga Childs PA-C [address] [facility] . [address] [place] [address] [place] [address] [phone] (Wo rk) Social History Tobacco Use Types Packs/Day Years Used Date Smoking Tobacco: Never Assessed Sex Assigned at Date Recorded Not on file documented as of this encounter Progress Notes Olga Peterson V - 08/17/2004 12:01 AM CDT Progress Notes signed by Olga Vicente PA-C at 09/13/04 0841 Author: Olga Vicente PA-C Service: (none) Author Type: Physician Director Dental Services Filed: 08/14/10 0431 Note Time: 08/17/04 0001 Status: Signed Russian Teacher: Olga Vicente PA-C (Physician Director Dental Services) NAME: SHARLENE VARNER MR: [id number] ACCT: [id number] VISIT: [id number] DICTATING CLINICIAN: KEREN CAMARGO JOB: [id number] CLINIC PROGRESS NOTE DATE OF VISIT: 08/17/2004 SUBJECTIVE: : 1970. Nhpwcw-kuhv-xysw-old male comes in concerned about sinus congestion [...] Obese. ASSESSMENT: Cough, bronchitis, sinusitis. PLAN: Mucinex ybuw-mug-igvdzoy twice daily for the next 10 days. [...] do not improve would recommend chest x-ray. MVT:[id number] C: 08/17/04 13:16 DOCUMENT: [id number] documented in this encounter Plan of Treatment Not on filedocumented as of this encounter Visit Diagnoses Not on filedocumented in this encounter Care Teams Medication Nurse Relationship Specialty Start Date End Date Antonio Jerez MD PCP - General 07/25/10 12/22/10 [address] [place] [address] documented as of this encounter
--- OUTSIDE RECORDS SUMMARY | 2022-02-14 15:09 | XMS_ITS | Encounter Summary ---
:1970 Author Organization [facility] Address [address] [place] [address] Care Team Providers Name Role Phone Michel Daniel MD Primary Care Provider Encounter Details Date Type Department Care Team Description 08/09/2005 Office Visit [facility] Michel Daniel MD [address] [facility] . [address] [place] [address] [place] [address] [phone] (Wo rk) Social History Tobacco Use Types [...] 1130 Note Time: 08/09/05 0001 Status: Signed Dental Technician Apprentice: Michel Daniel MD (Physician) NAME: SHARLENE VARNER MR: [id number] ACCT: [id number] VISIT: [id number] DICTATING CLINICIAN: MICHEL DANIEL MD JOB: [id number] CLINIC PROGRESS NOTE DATE OF VISIT: 08/09/2005 [...] Return in 4-6 weeks if not improved. AAS:[id number] C: 08/10/05 14:20 DOCUMENT: [id number] documented in this encounter Plan of Treatment Not on filedocumented as of this encounter Visit Diagnoses Not on filedocumented in this encounter Care Teams Citrix Systems Administrator Relationship Specialty Start Date End Date Michel Daniel MD PCP - General 07/25/10 12/22/[address] [place] [address] documented as of this encounter
--- OUTSIDE RECORDS SUMMARY | 2022-02-14 15:09 | XMS_ITS | Encounter Summary ---
:1970 Author Organization [facility] Address [address] [place] [address] Care Team Providers Name Role Phone Antonio Jerez MD Primary Care Provider Encounter Details Date Type Department Care Team Description 03/23/2006 PN Conversion Only [place] CONVERSION Antonio Jerez, [address] [facility] [place] [address] [address] [facility] [place] [address] (Wo rk) Social History Tobacco Use Types Packs/Day Years Used Date Smoking Tobacco: Never Assessed Sex Assigned at Date Recorded Not on file documented as of this encounter Plan of Treatment Not on filedocumented as of this encounter Procedures Procedure Name Priority Date/Time Associated Comments Diagnosis GLUCOSE Routine 03/23/2006 1:50 PM Results f or this PLANNING LEAD procedure are i n the results section. HGB A1C Routine 03/23/2006 1:50 PM Results f or this PLANNING LEAD procedure are i n the results section. HOSPITAL OBTAINED Routine 03/23/2006 1:48 PM Resu lts for this ANATOMICAL PATHOLOGY PLANNING LEAD procedu re are in REQUEST the results section. SURGICAL PATHYADY Routine 03/23/2006 1:43 PM Re sults for this NICOLLET PLANNING LEAD procedure are i n the results section. documented in this encounter Results (ABNORMAL) Glucose (03/23/2006 1:50 PM PLANNING LEAD) P athologist Signature Lab Glucose 120 (H) 60 - 100 HP CONVERSION mg/dL Specimen (Source) Anatomical Collection Method Collection Time Re ceived Time Location / / Volume Laterality 03/23/2006 1:50 PM PLANNING LEAD Antonio Jerez MD LAB_1 Performing Organization Address City/State/ZIP Code Phon e Number HP CONVERSION Hgb A1c (03/23/2006 1:50 PM PLANNING LEAD) athologist Signature HGB A1C 5.4 <6.0 % HP CONVERSION Specimen (Source) Anatomical Collection Method Collection Time Re ceived Time Location / / Volume Laterality 03/23/2006 1:50 PM PLANNING LEAD Antonio Jerez MD LAB_1 Performing Organization Address City/[facility]/ZIP Code Phon e Number HP CONVERSION Anatomical Pathology Request (03/23/2006 1:48 PM PLANNING LEAD) athologist Signature Surgical Path Done No normal HP CONVERSION Ord range Specimen (Source) Anatomical Collection Method Collection Time Re ceived Time Location / / Volume Laterality 03/23/2006 1:48 PM PLANNING LEAD Antonio Jerez MD LAB_1 Performing Organization Address [facility] Code Phon e Number HP CONVERSION Pathology Report (03/23/2006 1:43 PM PLANNING LEAD) [facility] gist Method Time Signature Surgical SEE TEXT No normal HP CONVERSION Pathology range Comment: Patient: SHARLENE VARNER T ?S URGICAL PATHOLOGY REPORT Pathology # ??[id number] ?Date Obtained: ? Date Received: DIAGNOSIS: ?Skin, groin: ?- ??Benign squamous keratosis. ?Bi Alaniz M.D. ?(electronic signature) TRH/TRH/kmr Date of Report: 03/25/06 Pathology # ??[id number] ?Date Obtained: ? Date Received: ORGAN/TISSUE SITE: ?Groin GROSS DESCRIPTION: ?Received in formalin is a 0.3 x 0. 3 x 0.2 cm irregular whipple-pink skin. ??The ?surface of the skin displays a 0.2 cm pale lesion. ??The skin is inked and ?submitted in toto in cassette [id number]. MJL/dke MICROSCOPIC DESCRIPTION: ?Sections examined show skin with h yperkeratosis, hypergranulosis and ?acanthosis. ??There is no evidence of malignancy. ??No viral changes are ?seen. Specimen (Source) Anatomical Collection Method Collection Time Re ceived Time Location / / Volume Laterality 03/23/2006 1:43 PM PLANNING LEAD Antonio Jerez MD LAB_1 Performing Organization Address City/State/ZIP Code Phon e Number HP CONVERSION documented in this encounter Visit Diagnoses Not on filedocumented in this encounter Care Teams Coremaker Helper Relationship Specialty Start Date End Date Antonio Jerez MD PCP - General 07/25/10 12/22/10 [address] [place] [address] documented as of this encounter
--- OUTSIDE RECORDS SUMMARY | 2022-02-14 15:09 | XMS_ITS | Encounter Summary ---
:1970 Author Organization [employer] Address [address] [address] Care Team Providers Name Role Phone Antonio Jerez MD Primary Care Provider Encounter Details Date Type Department Care Team Description 07/09/2003 Radio Electrician Only CONVERSION CONVERSION Delphine Malin i, APRN, CNS [address] [place] [address] (Wo rk) Social History Tobacco [...] 192 Note Time: 07/09/03 0001 Status: Signed Oil Field Equipment Mechanic Supervisor: SHERIF Bell (Clinical Nurse Specialist) Pt call, [...] f/u with Dr. Aquino in two weeks. Y AND CAULKING SUPERVISOR documented in this encounter Plan of Treatment Not on filedocumented as of this encounter Visit Diagnoses Not on filedocumented in this encounter Care Teams Workforce Management Coordinator Relationship Specialty Start Date End Date Antonio Jerez MD PCP - General 07/25/10 12/22/10 [address] [facility] [place] [address] documented as of this encounter
--- OUTSIDE RECORDS SUMMARY | 2022-02-14 15:09 | XMS_ITS | Encounter Summary ---
:1970 Author Organization [facility] Address [address] [address] Care Team Providers Name Role Phone Antonio Jerez MD Primary Care Provider Encounter Details Date Type Department Care Team Description 08/11/2006 Vegetable Farm Worker Only CONVERSION Kya Hewitt RN Social History [...] 1851 Note Time: 08/11/06 0001 Status: Signed Freight Rate Analyst: Niko Barrios prior auth for Zyprexa 5 mg approved through 08/11/07 #[id number] Pharmacy called [facility] documented in this encounter Plan of Treatment Not on filedocumented as of this encounter Visit Diagnoses Not on filedocumented in this encounter Care Teams Crm Specialist Relationship Specialty Start Date End Date Antonio Jerez MD PCP - General 07/25/10 12/22/10 [address] [facility] [address] documented as of this encounter
--- OUTSIDE RECORDS SUMMARY | 2022-02-14 15:09 | XMS_ITS | Encounter Summary ---
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 Note written per his request. time spent: 20 minutes return visit: Two weeks *SH~INEZ~dena documented in this encounter Plan of Treatment Not on filedocumented as of this encounter Visit Diagnoses Not on filedocumented in this encounter Care Teams Him Coder Relationship Specialty Start Date End Date Antonio Jerez MD PCP - General 07/25/10 12/22/10 [facility] [place] [address] documented as of this encounter
--- OUTSIDE RECORDS SUMMARY | 2022-02-14 15:09 | XMS_ITS | Encounter Summary ---
:1970 Author Organization [facility] Address [address] [address] Care Team Providers Name Role Phone Antonio Jerez MD Primary Care Provider Encounter Details Date Type Department Care Team Description 08/17/2004 PN Conversion Only [place] CONVERSION [address] [place] [address] Social History Tobacco Use Types Packs/Day Years [...] 0000 Note Time: 11/15/05 0001 Status: Signed Violin Restorer: Екатерина Goetz RN (Registered Nurse) NAME: NATALI KRISHNAMURTHY MR: [id number] ACCT: DICTATING CLINICIAN: ЕКАТЕРИНА GOETZ RN JOB: [id number] [facility] ONLINE PHONE CALL DATE: 11/15/05. [...] not want to restart any other medication. :[id number] C: 11/16/05 11:54 DOCUMENT: [id number] Ashley Gaines RN - 10/07/2005 12:01 AM CDT Phone Note signed by Ashley Denise RN at 03/01/06 1604 Author: Ashley Denise RN Service: (none) Author Type: Registered Nurse Filed: 08/17/04 0000 Note Time: 10/07/05 0001 Status: Signed Violin Restorer: Ashley Denise RN (Registered Nurse) NAME: SHARLENE KRISHNAMURTHY MR: ACCT: DICTATING CLINICIAN: Bac[facility] J[facility]: [id number] [facility] ONLINE PHONE CALL DATE: 10/07/05. This is a patient of Dr. Hanson. Patient called in stating he is taking the Zyprexa 5 mg b.i.d. double what he and Dr. Hanson had talked about and was feeling better with this. Dr. Hanson informed. [facility]:[id number] C: 10/07/05 20:08 DOCUMENT: [id number] [facility] NURSE PRACTITIONER Екатерина Goetz RN - 10/05/2005 12:01 AM CDT Phone Note signed by Екатерина Goetz RN at 10/08/05 1416 Author: Екатерина Goetz RN Service: (none) Author Type: Registered Nurse Filed: 08/17/04 0000 Note Time: 10/05/05 0001 Status: Signed Violin Restorer: Екатерина Goetz RN (Registered Nurse) NAME: NATALI KRISHNAMURTHY MR: [id number] ACCT: DICTATING CLINICIAN: ЕКАТЕРИНА GOETZ RN JOB: [id number] [facility] ONLINE PHONE CALL DATE: . SUBJECTIVE AND [...] a follow up appointment scheduled for 10/29. MC:[id number] C: 10/05/05 13:39 DOCUMENT: [id number] Екатерина Goetz RN - 09/30/2005 12:01 AM CDT Phone Note signed by Екатерина Goetz RN at 10/08/05 1413 Author: Екатерина Goetz RN Service: (none) Author Type: Registered Nurse Filed: 08/17/04 0000 Note Time: 09/30/05 0001 Status: Signed Violin Restorer: Екатерина Goetz RN (Registered Nurse) NAME: NATALI LINDA MR: [id number] ACCT: DICTATING CLINICIAN: ЕКАТЕРИНА GOETZ RN JOB: [id number] [facility] ONLINE PHONE CALL DATE: 09/30/05. . SUBJECTIVE/OBJECTIVE: The patient phoned in stating that he had decreased to 5 mg of Zyprexa at night. He states that he has been quite calm lately. He has been eliminating caffeine from his diet. He states he is attending the day treatment program at [facility] which he really likes. He reports [...] has a followup appointment scheduled for 10/29. MC:[id number] C: 09/30/05 21:47 DOCUMENT: [id number] Farida Malin APRN, CNS - 09/24/2005 12:01 AM CDT Phone Note signed by SHERIF Bell at 09/27/05 0829 Author: SHERIF Bell Service: (none) Author Type: Clinical Nurse Specialist Filed: 08/17/04 0000 Note Time: 09/24/05 0001 Status: Signed Violin Restorer: SHERIF Bell (Clinical Nurse Specialist) NAME: NATALI KRISHNAMURTHY MR: [id number] ACCT: DICTATING CLINICIAN: SHERIF COELHO JOB: [id number] [facility] ONLINE PHONE CALL DATE: : [...] I did leave Natali a message at [phone] as directed by the patient regarding this medication change. He is to call with any questions or concerns. He is to follow up with Dr. Hanson as directed. KJL:[id number] C: 09/24/05 11:46 DOCUMENT: [id number] Екатерина Goetz RN - 09/17/2005 12:01 AM CDT Phone Note signed by Екатерина Goetz RN at 10/08/05 140 Author: Екатерина Goetz RN Service: (none) Author Type: Registered Nurse Filed: 08/17/04 0000 Note Time: 09/17/05 0001 Status: Signed Violin Restorer: Екатерина Goetz RN (Registered Nurse) NAME: NATALI PEARL MR: [id number] ACCT: DICTATING CLINICIAN: ЕКАТЕРИНА GOETZ RN JOB: [id number] [facility] ONLINE PHONE CALL DATE: 09/17/05. . SUBJECTIVE/OBJECTIVE: The patient phoned from [facility] where he was seeing Dr. Mckinney and [...] to get further directions from Dr. Hanson. MC:[id number] C: 09/20/05 11:29 DOCUMENT: [id number] Екатерина Goetz RN - 09/02/2005 12:01 AM CDT Phone Note signed by Екатерина Goetz RN at 09/06/05 1350 Author: Екатерина Goetz RN Service: (none) Author Type: Registered Nurse Filed: 08/17/04 0000 Note Time: 09/02/05 0001 Status: Signed Violin Restorer: Екатерина Goetz RN (Registered Nurse) NAME: SHARLENE KRISHNAMURTHY MR: [id number] ACCT: DICTATING CLINICIAN: ЕКАТЕРИНА GOETZ RN JOB: [id number] [facility] ONLINE PHONE CALL DATE: 09/02/05. [...] This information was given to Dr. Hanson. MC:[id number] C: 09/03/05 15:33 DOCUMENT: [id number] Farida Malin APRN, CNS - 08/31/2005 12:01 AM CDT Phone Note signed by SHERIF Bell at 09/08/05 0811 Author: SHERIF Bell Service: (none) Author Type: Clinical Nurse Specialist Filed: 08/17/04 0000 Note Time: 08/31/05 0001 Status: Signed Violin Restorer: SHERIF Bell (Clinical Nurse Specialist) NAME: AMOL KRISHNAMURTHY MR: [id number] ACCT: DICTATING CLINICIAN: SHERIF COELHO JOB: [id number] [facility] ONLINE PHONE CALL DATE: 08/31/2005. I will [...] back today and has met with his case consultant. Both are feeling that he is having [...] changes. Patient is agreeable with that plan. KJL:[id number] C: 09/01/05 17:27 DOCUMENT: [id number] Farida Malin APRN, CNS - 08/25/2005 12:01 AM CDT Phone Note signed by SHERIF Bell at 08/27/05 1103 Author: SHERIF Bell Service: (none) Author Type: Clinical Nurse Specialist Filed: 08/17/04 0000 Note Time: 08/25/05 0001 Status: Signed Violin Restorer: SHERIF Bell (Clinical Nurse Specialist) NAME: SHARLENE KRISHNAMURTHY MR: [id number] ACCT: DICTATING CLINICIAN: SHERIF COELHO JOB: [id number] [facility] ONLINE PHONE CALL DATE: 08/25/05. [...] he is to follow up as directed. KJL:[id number] C: 08/27/05 07:09 DOCUMENT: [id number] Екатерина Goetz RN - 08/24/2005 12:01 AM CDT Phone Note signed by Екатерина Goetz RN at 09/03/05 0803 Author: Екатерина Goetz RN Service: (none) Author Type: Registered Nurse Filed: 08/17/04 0000 Note Time: 08/24/05 0001 Status: Signed Violin Restorer: Екатерина Goetz RN (Registered Nurse) NAME: SHARLENE KRISHNAMURTHY MR: [id number] ACCT: DICTATING CLINICIAN: ЕКАТЕРИНА GOETZ RN JOB: [id number] [facility] ONLINE PHONE CALL DATE: 08/24/05. SUBJECTIVE/OBJECTIVE: [...] get a recommendation from Dr. Hanson tomorrow. MC:[id number] C: 08/25/05 12:23 DOCUMENT: [id number] Екатерина Goetz RN - 08/19/2005 12:01 AM CDT Phone Note signed by Екатерина Goetz RN at 08/24/05 1346 Author: Екатерина Goetz RN Service: (none) Author Type: Registered Nurse Filed: 08/17/04 0000 Note Time: 08/19/05 0001 Status: Signed Violin Restorer: Екатерина Goetz RN (Registered Nurse) NAME: SHARLENE KRISHNAMURTHY MR: [id number] ACCT: DICTATING CLINICIAN: ЕКАТЕРИНА GOETZ RN JOB: [id number] [facility] ONLINE PHONE CALL DATE: 08/19/05. [...] will be making that as of today. MC:[id number] C: 08/20/05 15:20 DOCUMENT: [id number] documented in this encounter Plan of Treatment Not on filedocumented as of this encounter Visit Diagnoses Not on filedocumented in this encounter Care Teams Supervising Fire Marshal Relationship Specialty Start Date End Date Antonio Jerez MD PCP - General 07/25/10 12/22/10 [address] [place] [address] documented as of this encounter
--- OUTSIDE RECORDS SUMMARY | 2022-02-14 15:09 | XMS_ITS | Encounter Summary ---
:1970 Author Organization [facility] Address [address] [place] [address] Care Team Providers Name Role Phone Michel Daniel MD Primary Care Provider Encounter Details Date Type Department Care Team Description 10/04/2005 Office Visit [facility] Michel Daniel MD [address] [facility] . [address] [place] [address] [place] [address] [phone] (Wo rk) Social History Tobacco Use Types [...] 1237 Note Time: 10/04/05 0001 Status: Signed Pneumatic Systems Operator: Michel Daniel MD (Physician) NAME: SHARLENE VARNER MR: [id number] ACCT: [id number] VISIT: [id number] DICTATING CLINICIAN: MICHEL DANIEL MD JOB: [id number] CLINIC PROGRESS NOTE DATE OF VISIT: 10/04/2005 [...] blood sugars periodically on and/or off Zyprexa. AAS:[id number] C: 10/05/05 10:37 DOCUMENT: [id number] documented in this encounter Plan of Treatment Not on filedocumented as of this encounter Visit Diagnoses Not on filedocumented in this encounter Care Teams Rail Assembler Relationship Specialty Start Date End Date Michel Daniel MD PCP - General 07/25/10 12/22/10 [facility]5 [place] [address] documented as of this encounter
--- OUTSIDE RECORDS SUMMARY | 2022-02-14 15:09 | XMS_ITS | Encounter Summary ---
:1970 Author Organization [facility] Address [address], [place] [address] Care Team Providers Name Role Phone Antonio Jerez MD Primary Care Provider Encounter Details Date Type Department Care Team Description 07/17/2003 Preschool Teacher'S Assistant Only CONVERSION CONVERSION Dave Aquino MBBS [address] [facility] [address] (Wo rk) Social History [...] 193 Note Time: 07/17/03 0001 Status: Signed Safety Specialist: REINA Olivia (Resource) VPA 119 from 07/03/03. No action needed at current time. HER TOOLER documented in this encounter Plan of Treatment Not on filedocumented as of this encounter Visit Diagnoses Not on filedocumented in this encounter Care Teams Attache Relationship Specialty Start Date End Date Antonio Jerez MD PCP - General 07/25/10 12/22/10 [address] [place] [address] documented as of this encounter
--- OUTSIDE RECORDS SUMMARY | 2022-02-14 15:09 | XMS_ITS | Encounter Summary ---
:1970 Author [facility] Address [address] [address] Care Team Providers Name Role Phone Antonio Jerez MD Primary Care Provider Encounter Details Date Type Department Care Team Description 03/20/2003 PN Conversion Only [place] CONVERSION [address] [place] [address] Social History Tobacco Use Types Packs/Day Years Used Date Smoking Tobacco: Never Assessed Sex Assigned at Date Recorded Not on file documented as of this encounter Plan of Treatment Not on filedocumented as of this encounter Visit Diagnoses Not on filedocumented in this encounter Care Teams Assurance Manager Insurance Relationship Specialty Start Date End Date Antonio Jerez MD PCP - General 07/25/10 12/22/10 [address] [place] [address] documented as of this encounter
--- OUTSIDE RECORDS SUMMARY | 2022-02-14 15:09 | XMS_ITS | Encounter Summary ---
:1970 Author Organization [facility] Address [address] [place] [address] Care Team Providers Name Role Phone Michel Daniel MD Primary Care Provider Encounter Details Date Type Department Care Team Description 03/23/2006 Procedure Visit [facility] Michel Daniel, [address] [facility] [address] [address] [facility] [phone] [place], [place] [address] (Wo rk) Social History Tobacco [...] 1556 Note Time: 03/23/06 0001 Status: Signed Statistical Geneticist: Michel Daniel MD (Physician) NAME: SHARLENE VARNER MR#: [id number] ACCT: [id number] VISIT: [id number] DICTATING CLINICIAN: MICHEL DANIEL MD JOB: [id number] LOC: 1202 CLINIC PROGRESS NOTE DATE OF [...] to him with these results. ASSESSMENT: PLAN: AAS:[id number] C: 03/24/06 08:07 DOCUMENT: [id number] OR JAVA WEB DEVELOPER documented in this encounter Plan of Treatment Not on filedocumented as of this encounter Visit Diagnoses Not on filedocumented in this encounter Care Teams Plant Nursery Worker Relationship Specialty Start Date End Date Michel Daniel MD PCP - General 07/25/10 12/22/10 [address] [place] [address] documented as of this encounter
--- OUTSIDE RECORDS SUMMARY | 2022-02-14 15:09 | XMS_ITS | Encounter Summary ---
:1970 Author Organization [facility] Address [address] [place] [address] Care Team Providers Name Role Phone Michel Jerez MD Primary Care Provider Encounter Details Date Type Department Care Team Description 10/13/2005 Office Visit [facility] Michel Jerez MD [address] [facility] . [address] [place] [address] [place] [address] [phone] (Wo rk) Social History Tobacco Use Types [...] 1249 Note Time: 10/13/05 0001 Status: Signed Rock Lather: Michel Jerez MD (Physician) NAME: SHARLENE VARNER MR: [id number] ACCT: [id number] VISIT: [id number] DICTATING CLINICIAN: MICHEL JEREZ MD JOB: [id number] CLINIC PROGRESS NOTE DATE OF VISIT: 10/13/2005 [...] them also to instruct him on diet. AAS:[id number] C: 10/14/05 13:15 DOCUMENT: [id number] documented in this encounter Plan of Treatment Not on filedocumented as of this encounter Visit Diagnoses Not on filedocumented in this encounter Care Teams Refrigeration Engine Operator Relationship Specialty Start Date End Date Michel Jerez MD PCP - General 07/25/10 12/22/10 [address] [facility] [place] [address] documented as of this encounter
--- OUTSIDE RECORDS SUMMARY | 2022-02-14 15:09 | XMS_ITS | Encounter Summary ---
:1970 Author Organization [facility] Address [address], [place] [address] Care Team Providers Name Role Phone Antonio Jerez MD Primary Care Provider Encounter Details Date Type Department Care Team Description 10/18/2002 PN Conversion Only [place] [address] [place], [place] [address] Social History Tobacco Use [...] (10/18/2002 1:56 PM CDT) [facility] Time Signature Time Last Dose 2,330 No normal HP CONVERSION Valproic Acid range Date Last Dose [id number] No normal HP CONVERSION Valproic Acid range [...] filedocumented in this encounter Care Teams Freight Flow Sales Leader Relationship Specialty Start Date End Date Antonio Jerez MD PCP - General 07/25/10 12/22/10 [address] [place] [address] documented as of this encounter
--- OUTSIDE RECORDS SUMMARY | 2022-02-14 15:09 | XMS_ITS | Encounter Summary ---
:1970 Author Organization [facility] Address [address] [address] Care Team Providers Name Role Phone Antonio Jerez MD Primary Care Provider Encounter Details Date Type Department Care Team Description 11/30/2000 PN Conversion Only CONFUCIANISM CONVERSION Kvng Jerez MD [address] [place], [place] [address] (Wo rk) Social History Tobacco Use Types Packs/Day Years Used Date Smoking Tobacco: Never Assessed Sex Assigned at Date Recorded Not on file documented as of this encounter Plan of Treatment Not on filedocumented as of this encounter Visit Diagnoses Not on filedocumented in this encounter Care Teams Shut Off Worker Relationship Specialty Start Date End Date Antonio Jerez MD PCP - General 07/25/10 12/22/10 [address] [place] [address] documented as of this encounter
--- OUTSIDE RECORDS SUMMARY | 2022-02-14 15:09 | XMS_ITS | Encounter Summary ---
:1970 Author Organization [facility] Address [address] [place] [address] Care Team Providers Name Role Phone Antonio Jerez MD Primary Care Provider Encounter Details Date Type Department Care Team Description 10/23/2004 Procedure Visit [facility] Armida Mtz MD [address] [facility] [address] [place] [address] [address] [phone] [place] [address] Social History Tobacco Use Types Packs/Day Years [...] 08/14/10 0549 Note Time: 10/23/042018 Status: Signed Asphalt Screed Operator: Armida Mtz MD (Physician) NAME: SHARLENE VARNER MR: [id number] ACCT: [id number] VISIT: [id number] DICTATING CLINICIAN: ARMIDA MTZ MD JOB: [id number] CLINIC PROGRESS NOTE DATE OF VISIT: 10/23/2004 SUBJECTIVE: : 1970. [id number]. The patient is here for skin tags [...] 1. Skin tags. 2. Venereal warts. PLAN: REANNA:[id number] C: 10/24/04 17:27 DOCUMENT: [id number] documented in this encounter Plan of Treatment Not on filedocumented as of this encounter Visit Diagnoses Not on filedocumented in this encounter Care Teams Occupational Health Nurse Relationship Specialty Start Date End Date Antonio Jerez MD PCP - General 07/25/10 12/22/10 [facility] [place]5 [place] [address] documented as of this encounter
--- OUTSIDE RECORDS SUMMARY | 2022-02-14 15:09 | XMS_ITS | Encounter Summary ---
:1970 Author Organization [facility] Address [address], [place] [address] Care Team Providers Name Role Phone Antonio Jerez MD Primary Care Provider Encounter Details Date Type Department Care Team Description 03/12/2002 PN Conversion Only WORSHIP CONVERSION Kvng Jerez MD [address] [place], [place] [address] (Wo rk) Social History Tobacco Use Types Packs/Day Years Used Date Smoking Tobacco: Never Assessed Sex Assigned at Date Recorded Not on file documented as of this encounter Plan of Treatment Not on filedocumented as of this encounter Visit Diagnoses Not on filedocumented in this encounter Care Teams Casino Gaming Worker Relationship Specialty Start Date End Date Antonio Jerez MD PCP - General 07/25/10 12/22/10 [address] [place] [address] documented as of this encounter
--- OUTSIDE RECORDS SUMMARY | 2022-02-14 15:09 | XMS_ITS | Encounter Summary ---
:1970 Author Organization [facility] Address [address] [place] [address] Care Team Providers Name Role Phone Michel Jerez MD Primary Care Provider Encounter Details Date Type Department Care Team Description 09/15/2005 Office Visit [facility] Michel Jerez MD [address] [facility] . [address] [place] [address] [place] [address] [phone] (Wo rk) Social History Tobacco Use Types [...] 1217 Note Time: 09/15/05 0001 Status: Signed Analysis Internship: Michel Jerez MD (Physician) NAME: SHARLENE VARNER MR: [id number] ACCT: [id number] VISIT: [id number] DICTATING CLINICIAN: MICHEL JEREZ MD JOB: [id number] CLINIC PROGRESS NOTE DATE OF VISIT: 09/15/2005 [...] ASSESSMENT: 1. Skin tag. 2. Bipolar disorder. AAS:[id number] C: 09/16/05 12:42 DOCUMENT: [id number] documented in this encounter Plan of Treatment Not on filedocumented as of this encounter Visit Diagnoses Not on filedocumented in this encounter Care Teams Scanning Clerk Relationship Specialty Start Date End Date Michel Jerez MD PCP - General 07/25/10 12/22/10 [facility]5 [facility] [place] [address] documented as of this encounter
--- OUTSIDE RECORDS SUMMARY | 2022-02-14 15:09 | XMS_ITS | Encounter Summary ---
:1970 Author Organization [facility] Address [address] [address] Care Team Providers Name Role Phone Antonio Jerez MD Primary Care Provider Encounter Details Date Type Department Care Team Description 07/30/2005 PN Conversion Only Kevin Blackburn, [address] [place] [address] [address] [facility] [address] [place] [address] Social History Tobacco Use Types [...] on filedocumented in this encounter Care Teams Fiscal Services Manager Relationship Specialty Start Date End Date Antonio Jerez MD PCP - General 07/25/10 12/22/10 [address] [facility] [place] [address] documented as of this encounter
--- OUTSIDE RECORDS SUMMARY | 2022-02-14 15:09 | XMS_ITS | Encounter Summary ---
:1970 Author Organization [facility] Address [address] [place] [address] Care Team Providers Name Role Phone Antonio Jerez MD Primary Care Provider Encounter Details Date Type Department Care Team Description 09/15/2005 PN Conversion Only OSAGE CONVERSION Antonio Jerez, [address] [place] [address] [address] [facility] [place] [address] (Wo rk) Social History [...] on filedocumented in this encounter Care Teams Linoleum Printer Relationship Specialty Start Date End Date Antonio Jerez MD PCP - General 07/25/10 12/22/10 [address] [facility] [address] documented as of this encounter
--- OUTSIDE RECORDS SUMMARY | 2022-02-14 15:09 | XMS_ITS | Encounter Summary ---
:1970 Author Organization [employer] Address [address] [address] Care Team Providers Name Role Phone Antonio Jerez MD Primary Care Provider Encounter Details Date Type Department Care Team Description 08/25/2001 PN Conversion [place] [address] [place], [place] [address] Social History Tobacco Use Types Packs/Day Years Used Date Smoking Tobacco: Never Assessed Sex Assigned at Date Recorded Not on file documented as of this encounter Plan of Treatment Not on filedocumented as of this encounter Visit Diagnoses Not on filedocumented in this encounter Care Teams Insurance Claims Examiner Relationship Specialty Start Date End Date Antonio Jerez MD PCP - General 07/25/10 12/22/10 [address] [place] [address] documented as of this encounter
--- OUTSIDE RECORDS SUMMARY | 2022-02-14 15:09 | XMS_ITS | Encounter Summary ---
:1970 Author Organization [employer] Address [address] [address] Care Team Providers Name Role Phone Antonio Jerez MD Primary Care Provider Encounter Details Date Type Department Care Team Description 02/21/2002 PN Conversion [place] [address] [place], [place] [address] Social History Tobacco Use Types Packs/Day Years Used Date Smoking Tobacco: Never Assessed Sex Assigned at Date Recorded Not on file documented as of this encounter Plan of Treatment Not on filedocumented as of this encounter Visit Diagnoses Not on filedocumented in this encounter Care Teams Filter Operator Relationship Specialty Start Date End Date Antonio Jerez MD PCP - General 07/25/10 12/22/10 [address] [place] [address] documented as of this encounter
--- OUTSIDE RECORDS SUMMARY | 2022-02-14 15:09 | XMS_ITS | Encounter Summary ---
:1970 Author Organization [facility] Address [address] [place] [address] Care Team Providers Name Role Phone Michel Daniel MD Primary Care Provider Encounter Details Date Type Department Care Team Description 04/03/2003 PN Conversion Only [facility] Michel Daniel , [facility] MD [address] [facility] . [address] [place] [address] [place] [address] [phone] (Wo rk) Social History Tobacco Use Types Packs/Day Years Used Date Smoking Tobacco: Never Assessed Sex Assigned at Date Recorded Not on file documented as of this encounter Progress Notes Michel Daniel MD - 04/03/2003 12:01 AM CST Progress Notes signed by Michel Daniel MD at 04/03/03 1759 Author: Michel Daniel MD Service: (none) Author Type: Physician Filed: 08/13/10 1732 Note Time: 04/03/03 0001 Status: Signed Community Associate: Michel Daniel MD (Physician) NAME: SHARLENE VARNER MR: [id number] ACCT: [id number] VISIT: [id number] DICTATING CLINICIAN: MICHEL DANIEL MD JOB: [id number] CLINIC PROGRESS NOTE DATE OF VISIT: 04/03/2003 [...] and 100. Rustam continues to work at [employer]. He is working 40 hours a week. [...] me on a p.r.n. basis. TT: CT: AAS:[id number] C: 04/03/03 17:34 DOCUMENT: [id number] WOOD FLOOR INSTALLER documented in this encounter Plan of Treatment Not on filedocumented as of this encounter Visit Diagnoses Not on filedocumented in this encounter Care Teams Heart Specialist Relationship Specialty Start Date End Date Michel Daniel MD PCP - General 07/25/10 12/22/[address] [place] [address] documented as of this encounter
--- OUTSIDE RECORDS SUMMARY | 2022-02-14 15:09 | XMS_ITS | Encounter Summary ---
:1970 Author Organization [facility] Address [address] [address] Care Team Providers Name Role Phone Antonio Jerez MD Primary Care Provider Encounter Details Date Type Department Care Team Description 09/17/2005 Office Visit [facility] Armida Mtz MD 14[address] [facility] . [address] [place] [address] [place] [address] Social History Tobacco Use Types Packs/Day Years [...] signed by Armida Mtz MD at 09/18/05 9827 Author: Armida Mtz MD Service: (none) Author Type: Physician Filed: 08/14/10 1219 Note Time: 09/17/05 0001 Status: Signed Bung Dropper: Armida Mtz MD (Physician) NAME: SHARLENE VARNER MR: [id number] ACCT: [id number] VISIT: [id number] DICTATING CLINICIAN: ARMIDA MTZ MD JOB: [id number] CLINIC PROGRESS NOTE DATE OF VISIT: 09/17/2005 [...] up with his psychiatrist Dr. Kevin Hanson DRL:[id number] C: 09/17/05 20:32 DOCUMENT: [id number] documented in this encounter Plan of Treatment Not on filedocumented as of this encounter Visit Diagnoses Not on filedocumented in this encounter Care Teams Deck Engineer Relationship Specialty Start Date End Date Antonio Jerez MD PCP - General 07/25/10 12/22/10 [address] [facility] [place] [address] documented as of this encounter
--- OUTSIDE RECORDS SUMMARY | 2022-02-14 15:09 | XMS_ITS | Encounter Summary ---
:1970 Author Organization [employer] Address [address] [place] [address] Care Team Providers Name Role Phone Michel Daniel MD Primary Care Provider Encounter Details Date Type Department Care Team Description 05/19/2005 Office Visit [facility] Michel Daniel MD 14[address] [facility] . [address] [place] [address] [place] [address] [phone] (Wo rk) Social History Tobacco Use Types Packs/Day Years Used Date Smoking Tobacco: Never Assessed Sex Assigned at Date Recorded Not on file documented as of this encounter Last Filed Vital Signs Vital Sign Reading Time Taken Comments Blood Pressure 132/84 05/19/2005 1:00 PM TURNER MACHINE OPERATOR Pulse - - Temperature 37.1 ??C (98.8 ??F) 05/19/2005 1:00 PM TURNER MACHINE OPERATOR C: 37 .1 C Respiratory Rate - - Oxygen Saturation - - Inhaled Oxygen Concentration - - Weight 97.1 kg (213 lb 15.7 oz) 05/19/2005 1:00 PM TURNER MACHINE OPERATOR C: 97.1kg Height - - Body Mass Index - - documented in this encounter Progress Notes Michel Daniel MD - 05/19/2005 12:01 AM CST Progress Notes signed by Michel Daniel MD at 05/21/05 0715 Author: Michel Daniel MD Service: (none) Author Type: Physician Filed: 08/14/10 0947 Note Time: 05/19/05 0001 Status: Signed Application Coordinator: Michel Daniel MD (Physician) NAME: SHARLENE VARNER MR: [id number] ACCT: [id number] VISIT: [id number] DICTATING CLINICIAN: MICHEL DANIEL MD JOB: [id number] CLINIC PROGRESS NOTE DATE OF VISIT: 05/19/2005 [...] fluids, recheck p.r.n. 2. Influenza vaccine today. AAS:[id number] C: 05/20/05 09:24 DOCUMENT: [id number] ER MACHINE OPERATOR documented in this encounter Plan of Treatment Not on filedocumented as of this encounter Visit Diagnoses Not on filedocumented in this encounter Care Teams Tractor Trailer Driver Relationship Specialty Start Date End Date Michel Daniel MD PCP - General 07/25/10 12/22/[address] [place] [address] documented as of this encounter
--- OUTSIDE RECORDS SUMMARY | 2022-02-14 15:09 | XMS_ITS | Encounter Summary ---
:1970 Author Organization [employer] Address [address] [place] [address] Care Team Providers Name Role Phone Antonio Jerez MD Primary Care Provider Encounter Details Date Type Department Care Team Description 04/03/2003 PN Conversion Only WALES CONVERSION Antonio Jerez, 14[address] [facility] [place] [address] [address] [facility] [place] [address] (Wo rk) Social History Tobacco Use Types Packs/Day Years Used Date Smoking Tobacco: Never Assessed Sex Assigned at Date Recorded Not on file documented as of this encounter Plan of Treatment Not on filedocumented as of this encounter Procedures Procedure Name Priority Date/Time Associated Comments Diagnosis DIFFERENTIAL RULE Routine 04/03/2003 1:55 PM Resu lts for this MANUAL SANDSTONE INSPECTOR REPAIRER procedure are i n the results section. COMPLETE BLOOD Routine 04/03/2003 1:55 PM Results for this COUNT-W/DIFF SANDSTONE INSPECTOR REPAIRER procedure are i n the results section. VALPROIC ACID Routine 04/03/2003 1:55 PM Results for this (DEPAKENE) SANDSTONE INSPECTOR REPAIRER procedure are i n the results section. ALT (SGPT) Routine 04/03/2003 1:55 PM Results f or this SANDSTONE INSPECTOR REPAIRER procedure are i n the results section. AST Routine 04/03/2003 1:55 PM Results f or this SANDSTONE INSPECTOR REPAIRER procedure are i n the results section. documented in this encounter Results Complete Blood Count-W/Diff (04/03/2003 1:55 PM SANDSTONE INSPECTOR REPAIRER) [facility] gist Method Time Signature White Blood [...] - HP CONVERSION Hemoglobin Conc 36.5 gm/dL [place] RDW 11.6 11.0 - HP CONVERSION 15.0 % Platelet Count 181 140 - 450 HP CONVERSION k/cmm Differential Manl Dif No normal HP CONVERSION Verify range Specimen (Source) Anatomical Collection Method Collection Time Re ceived Time Location / / Volume Laterality 04/03/2003 1:55 PM SANDSTONE INSPECTOR REPAIRER Antonio Jerez MD LAB_1 Performing Organization Address City/[facility]/ZIP Code Phon e Number HP CONVERSION (ABNORMAL) ALT (SGPT) (04/03/2003 1:55 PM SANDSTONE INSPECTOR REPAIRER) [facility] [employer] Method Time Signature Alanine 82 (H) 0 - 65 HP CONVERSION Aminotransferase U/L Specimen (Source) Anatomical Collection Method Collection Time Re ceived Time Location / / Volume Laterality 04/03/2003 1:55 PM SANDSTONE INSPECTOR REPAIRER Antonio Jerez MD LAB_1 Performing Organization Address City/[facility]/ZIP Code Phon e Number HP CONVERSION (ABNORMAL) AST (04/03/2003 1:55 PM SANDSTONE INSPECTOR REPAIRER) [facility] [employer] Method Time Signature Aspartate 70 (H) 0 - 45 HP CONVERSION Aminotransferase U/L Specimen (Source) Anatomical Collection Method Collection Time Re ceived Time Location / / Volume Laterality 04/03/2003 1:55 PM SANDSTONE INSPECTOR REPAIRER Antonio Jerez MD LAB_1 Performing Organization Address City/State/ZIP Code Phon e Number HP CONVERSION (ABNORMAL) Valproic Acid (Depakene) (04/03/2003 1:55 PM SANDSTONE INSPECTOR REPAIRER) Analysis Performed At [facility] Time Signature Time Last Dose 2,200 No normal HP CONVERSION Valproic Acid range Date Last Dose [id number] No normal HP CONVERSION Valproic Acid range Valproic 157 (H) 50 - 100 HP CONVERSION Acid/Depakene ug/mL (Valp) Specimen (Source) Anatomical Collection Method Collection Time Re ceived Time Location / / Volume Laterality 04/03/2003 1:55 PM SANDSTONE INSPECTOR REPAIRER Antonio Jerez MD LAB_1 Performing Organization Address City/[facility]/[place]UST Code Phon e Number HP CONVERSION (ABNORMAL) Differential Rule Manual (04/03/2003 1:55 PM SANDSTONE INSPECTOR REPAIRER) [facility] gist Method Time Signature Neutrophils 36 [...] / / Volume Laterality 04/03/2003 1:55 PM SANDSTONE INSPECTOR REPAIRER Antonio Jerez MD LAB_1 Performing Organization Address City/[facility] Phon e Number HP CONVERSION documented in this encounter Visit Diagnoses Not on filedocumented in this encounter Care Teams Design Engineering Manager Relationship Specialty Start Date End Date Antonio Jerez MD PCP - General 07/25/10 12/22/10 [address] [place] [address] documented as of this encounter
--- OUTSIDE RECORDS SUMMARY | 2022-02-14 15:09 | XMS_ITS | Encounter Summary ---
:1970 Author Organization [facility] Address [address] [address] Care Team Providers Name Role Phone Antonio Jerez MD Primary Care Provider Encounter Details Date Type Department Care Team Description 12/12/2000 PN Conversion Only MANDAEN CONVERSION Kvng Jerez MD [address] [place], [place] [address] (Wo rk) Social History Tobacco Use Types Packs/Day Years Used Date Smoking Tobacco: Never Assessed Sex Assigned at Date Recorded Not on file documented as of this encounter Plan of Treatment Not on filedocumented as of this encounter Visit Diagnoses Not on filedocumented in this encounter Care Teams Pleater Relationship Specialty Start Date End Date Antonio Jerez MD PCP - General 07/25/10 12/22/10 [address] [place] [address] documented as of this encounter
--- OUTSIDE RECORDS SUMMARY | 2022-02-14 15:09 | XMS_ITS | Encounter Summary ---
:1970 Author Organization [facility] Address [address] [address] Care Team Providers Name Role Phone Antonio Jerez MD Primary Care Provider Encounter Details Date Type Department Care Team Description 02/07/2007 PN Conversion Only BATH CONVERSKevin Mcneill, [address] [place] [address] [facility] [address] [place] [place] [address] Social History Tobacco Use Types [...] Results ALT (SGPT) (02/07/2007 8:22 AM CDT) [facility] gist Method Time Signature Alanine 44 [...] CONVERSION Valproic Acid range Date Last Dose [id number] No normal HP CONVERSION Valproic Acid range [...] on filedocumented in this encounter Care Teams Crucible Packer Relationship Specialty Start Date End Date Antonio Jerez MD PCP - General 07/25/10 12/22/10 [facility]5 [place] [address] documented as of this encounter
--- OUTSIDE RECORDS SUMMARY | 2022-02-14 15:09 | XMS_ITS | Encounter Summary ---
:1970 Author Organization [facility] Address [address] [address] Care Team Providers Name Role Phone Antonio Jerez MD Primary Care Provider Encounter Details Date Type Department Care Team Description 03/23/2006 PN Conversion Only CAROLINE CONVERSION Antonio Jerez, [address] [place] [address] [place] [address] (Wo rk) Social History Tobacco Use Types Packs/Day Years Used Date Smoking Tobacco: Never Assessed Sex Assigned at Date Recorded Not on file documented as of this encounter Plan of Treatment Not on filedocumented as of this encounter Visit Diagnoses Not on filedocumented in this encounter Care Teams Senior Grants Officer Relationship Specialty Start Date End Date Antonio Jerez MD PCP - General 07/25/10 12/22/10 [address] [place] [address] documented as of this encounter
--- OUTSIDE RECORDS SUMMARY | 2022-02-14 15:09 | XMS_ITS | Encounter Summary ---
:1970 Author Organization [facility] Address [address] [place] [address] Care Team Providers Name Role Phone Antonio Jerez MD Primary Care Provider Encounter Details Date Type Department Care Team Description 10/04/2005 PN Conversion Only [place] CONVERSION Antonio Jerez, [address] [facility] [address] [facility] [place] [address] (Wo rk) Social [...] on filedocumented in this encounter Care Teams Can Solderer Relationship Specialty Start Date End Date Antonio Jerez MD PCP - General 07/25/10 12/22/10 [address] [facility] [place] [address] documented as of this encounter
--- OUTSIDE RECORDS SUMMARY | 2022-02-14 15:09 | XMS_ITS | Encounter Summary ---
:1970 Author [facility] Address [address] [address] Care Team Providers Name Role Phone Antonio Jerez MD Primary Care Provider Encounter Details Date Type Department Care Team Description 07/16/2003 PN Conversion Only [place] Lyndsay Perry, [address] [place] [address] [place] [address] (Wo rk) Social History Tobacco Use Types Packs/Day Years Used Date Smoking Tobacco: Never Assessed Sex Assigned at Date Recorded Not on file documented as of this encounter Plan of Treatment Not on filedocumented as of this encounter Procedures Procedure Name Priority Date/Time Associated Diagnosis Comme nts VALPROIC ACID Routine 07/16/2003 9:26 AM Results for this (DEPAKENE) PUMP SERVICER SUPERVISOR procedure are i n the results section. documented in this encounter Results (ABNORMAL) Valproic Acid (Depakene) (07/16/2003 9:26 AM PUMP SERVICER SUPERVISOR) P athologist Signature Valproic 119 (H) 50 - 100 HP CONVERSION Acid/Depakene ug/mL (Valp) Specimen (Source) Anatomical Collection Method Collection Time Re ceived Time Location / / Volume Laterality 07/16/2003 9:26 AM PUMP SERVICER SUPERVISOR Lyndsay HUANG LAB_1 Performing Organization Address City/State/ZIP Code Phon e Number HP CONVERSION documented in this encounter Visit Diagnoses Not on filedocumented in this encounter Care Teams Telephone Operators Supervisor Relationship Specialty Start Date End Date Antonio Jerez MD PCP - General 07/25/10 12/22/10 [address] [facility] [place] [address] documented as of this encounter
--- OUTSIDE RECORDS SUMMARY | 2022-02-14 15:09 | XMS_ITS | Encounter Summary ---
:1970 Author Organization [facility] Address [address] [address] Care Team Providers Name Role Phone Antonio Jerez MD Primary Care Provider Encounter Details Date Type Department Care Team Description 07/31/2003 PN Conversion Only CHARLES CONVERSKevin Mcneill, [address] [place] [address] [facility] [address] [place] [address] Social History Tobacco Use Types [...] CONVERSION Valproic Acid range Date Last Dose [id number] No normal HP CONVERSION Valproic Acid range [...] filedocumented in this encounter Care Teams Logistics Planner Relationship Specialty Start Date End Date Antonio Jerez MD PCP - General 07/25/10 12/22/10 [address] [facility] [place] [address] documented as of this encounter
--- OUTSIDE RECORDS SUMMARY | 2022-02-14 15:10 | XMS_ITS | Encounter Summary ---
:1970 Author Organization [employer] Address [address] [address] Care Team Providers Name Role Phone Antonio Jerez MD Primary Care Provider Encounter Details Date Type Department Care Team Description 09/11/1999 PN Conversion Only [place] [address] [place], [place] [address] Social History Tobacco Use Types Packs/Day Years Used Date Smoking Tobacco: Never Assessed Sex Assigned at Date Recorded Not on file documented as of this encounter Plan of Treatment Not on filedocumented as of this encounter Visit Diagnoses Not on filedocumented in this encounter Care Teams Pewter Fabricator Relationship Specialty Start Date End Date Antonio Jerez MD PCP - General 07/25/10 12/22/10 [address] [place] [address] documented as of this encounter
--- OUTSIDE RECORDS SUMMARY | 2022-02-14 15:10 | XMS_ITS | Encounter Summary ---
:1970 Author Organization [employer] Address [address] [address] Care Team Providers Name Role Phone Antonio Jerez MD Primary Care Provider Encounter Details Date Type Department Care Team Description 04/10/1999 PN Conversion Only [place] [address] [place], [place] [address] Social History Tobacco Use Types Packs/Day Years Used Date Smoking Tobacco: Never Assessed Sex Assigned at Date Recorded Not on file documented as of this encounter Plan of Treatment Not on filedocumented as of this encounter Visit Diagnoses Not on filedocumented in this encounter Care Teams Mink Farmer Relationship Specialty Start Date End Date Antonio Jerez MD PCP - General 07/25/10 12/22/10 [address] [place] [address] documented as of this encounter
--- OUTSIDE RECORDS SUMMARY | 2022-02-14 15:10 | XMS_ITS | Encounter Summary ---
:1970 Author Organization [employer] [facility] [employer] Address [address] [address] Care Team Providers Name Role Phone Antonio Jerez MD Primary Care Provider Encounter Details Date Type Department Care Team Description 08/16/2000 PN Conversion Only [place] [address] [place], [place] [address] Social History Tobacco Use Types Packs/Day Years Used Date Smoking Tobacco: Never Assessed Sex Assigned at Date Recorded Not on file documented as of this encounter Plan of Treatment Not on filedocumented as of this encounter Visit Diagnoses Not on filedocumented in this encounter Care Teams Sealer Aircraft Relationship Specialty Start Date End Date Antonio Jerez MD PCP - General 07/25/10 12/22/10 [address] [place] [address] documented as of this encounter
--- OUTSIDE RECORDS SUMMARY | 2022-02-14 15:10 | XMS_ITS | Encounter Summary ---
:1970 Author Organization [employer] Address [address], [place] [address] Care Team Providers Name Role Phone Antonio Jerez MD Primary Care Provider Encounter Details Date Type Department Care Team Description 06/16/1998 PN Conversion [place] [address] [place], [place] [address] Social History Tobacco Use Types Packs/Day Years Used Date Smoking Tobacco: Never Assessed Sex Assigned at Date Recorded Not on file documented as of this encounter Plan of Treatment Not on filedocumented as of this encounter Visit Diagnoses Not on filedocumented in this encounter Care Teams Rn Disease Management Relationship Specialty Start Date End Date Antonio Jerez MD PCP - General 07/25/10 12/22/10 [address] [place] [address] documented as of this encounter
--- OUTSIDE RECORDS SUMMARY | 2022-02-14 15:10 | XMS_ITS | Encounter Summary ---
:1970 Author Organization [facility] Address [address] [place] [address] Care Team Providers Name Role Phone Unavailable Primary Care Provider Unavailable Encounter Details Date Type Department Care Team Description 05/25/1987 - 07/22/1988 Hospital Encounter FAITH CONVERSION Social History Tobacco Use Types Packs/Day Years Used Date Smoking Tobacco: Never Assessed Sex Assigned at Date Recorded Not on file documented as of this encounter Plan of Treatment Not on filedocumented as of this encounter Visit Diagnoses Not on filedocumented in this encounter
--- OUTSIDE RECORDS SUMMARY | 2022-02-14 15:10 | XMS_ITS | Encounter Summary ---
:1970 Author Organization [employer] Address [address], [place] [address] Care Team Providers Name Role Phone Antonio Jerez MD Primary Care Provider Encounter Details Date Type Department Care Team Description 03/21/2000 PN Conversion Only [place] [address] [place], [place] [address] Social History Tobacco Use Types Packs/Day Years Used Date Smoking Tobacco: Never Assessed Sex Assigned at Date Recorded Not on file documented as of this encounter Plan of Treatment Not on filedocumented as of this encounter Visit Diagnoses Not on filedocumented in this encounter Care Teams Solar Energy Technician Relationship Specialty Start Date End Date Antonio Jerez MD PCP - General 07/25/10 12/22/10 [address] [place] [address] documented as of this encounter
--- OUTSIDE RECORDS SUMMARY | 2022-02-14 15:10 | XMS_ITS | Encounter Summary ---
:1970 Author Organization [employer] Address [address] [address] Care Team Providers Name Role Phone Antonio Jerez MD Primary Care Provider Encounter Details Date Type Department Care Team Description 04/19/2000 PN Conversion Only [place] [address] [place], [place] [address] Social History Tobacco Use Types Packs/Day Years Used Date Smoking Tobacco: Never Assessed Sex Assigned at Date Recorded Not on file documented as of this encounter Plan of Treatment Not on filedocumented as of this encounter Visit Diagnoses Not on filedocumented in this encounter Care Teams Oracle Technical Architect Relationship Specialty Start Date End Date Antonio Jerez MD PCP - General 07/25/10 12/22/10 [address] [place] [address] documented as of this encounter
--- NOTE | 2022-02-14 15:12 | PC.NURSE ---
report given to med surg, pt to 247 via wheelchair, up on feet in room, much steadier and able to articulate well
--- NOTE | 2022-02-14 15:16 | CRLHL7_ITS ---
For Patients: As a result of the Century Cures Act, medical imaging exams and procedure reports are released immediately into your electronic medical record. You may view this report before your referring provider. If you have questions, please contact your health care provider. INDICATION: Hypoxia TECHNIQUE: CT chest pulmonary angiogram acquired with IV contrast. Approximately 95 cc of Isovue 370 contrast was administered intravenously. COMPARISON: Chest x-ray earlier same date 02/14/2022 FINDINGS: The heart is normal in size. Of valuation of the segmental and subsegmental branches is somewhat limited due to respiratory motion. No clear filling defect is seen to suggest a pulmonary embolus. The pulmonary artery is normal in caliber. Mildly prominence bilateral hilar lymph nodes there are nonspecific and likely reactive. Evaluation is somewhat limited due to respiratory motion. There patchy, upper lobe predominance ground-glass opacity. Atelectasis or consolidation within the lung bases. Negative for pleural effusion or pneumothorax. Within the upper abdomen the liver demonstrates diffuse decreased attenuation, suggestive of hepatic steatosis. The remainder of the upper abdomen is unremarkable. The bones are unremarkable. IMPRESSION: 1. Negative for pulmonary embolus, however evaluation of the segmental and subsegmental branches is somewhat limited due to motion. 2. Patchy, predominantly upper lobe ground-glass opacities. Findings could be infectious, inflammatory or pulmonary edema. Dictated by Tamia Hung MD @ 02/14/2022 4:11:18 PM Please note that all CT scans at this facility use dose modulation, iterative reconstruction, and/or weight-based dosing when appropriate to reduce radiation dose to as low as reasonably achievable. Dictated by: Tamia Hung MD @ 02/14/2022 16:11:28 (Electronically Signed)
--- NOTE | 2022-02-14 15:22 | P.IMHP_ITS ---
Hospitalist- H&P: HPI History of Present Illness Time Seen by Provider: 15:23 Date Seen: 02/14/22 Chief complaint: Drooling, slurring, and low O2 Narrative: Timur Krishnamurthy is a 52 year old male resident of [facility] [place] who presents with his 3rd emergency room visit in the past 5 days. The 1st visit on February 10 he had decreased responsiveness and slurring of his speech. He was thought to be lethargic. He had a low-grade fever of 100.7. He had also had a cough recently. Evaluation including chest x-ray on that occasion did not show any obvious abnormality. He was observed in the emergency department and return back to his baseline. His oxygen saturations were 90-91% but he was not dyspneic. He was discharged to home. He return to the emergency room on February 12. He was continued to have some coughing. There was not noted to be any fever. Cough is productive of yellowish sputum. He was also thought at times to be somewhat lethargic. Chest x-ray suggested a infiltrate in his right upper lobe and he was started on antibiotics for this. He returns to the emergency room today. He reports he is feeling fine. Emergency department staff note that he was lethargic on arrival but is back to his baseline mental status at the time I see him. He notes that he is still coughing but he thinks this is more typical of his chronic cough from smoking. He is not aware of any fever. He does not have any shortness of breath. He is not having any chest pain. He does note that his ankles are more swollen than usual. He did take a salt tablet last night. He normally has chronic lower extremity edema that he manages with support hose. He does not have those on at this time. His oxygen saturations are lower again in the 80s. He thinks maybe this is why he was sent to the emergency department because the staff were concerned about his low oxygen levels. He does not have a history of COPD though he has a history of 36 pack-year history of smoking. He has not been prescribed an inhaler. He does have a history of coronary disease but does not have a history of heart failure. He does not have a history of DVT or pulmonary embolism. He does not have known sleep apnea but does have reports of snoring. Review of Systems Narrative: Patient reports no other concerns at this time. He reports that he has been feeling fine. Does not have a fever or cough or shortness of breath. He does not acknowledge that his mental status is been significantly altered on multiple occasions however. Does have a history of chronic hyponatremia. He has bipolar disorder. He is on fairly high doses of medications for this. He also has diabetes and coronary artery disease. He reports he he has been eating normally. He has had no chest pain or abdominal pain. Bowel function is normal. No blood in his stool. Urination is normal. Both lower extremities with edema as noted above PFSH [facility] Medical History (Updated 02/14/22 @ 15:37 by Bi Ramirez MD) Bipolar 1 disorder Coronary artery disease Diabetes mellitus type 2 in obese Diabetic peripheral neuropathy Diabetic retinopathy Dyslipidemia Generalized anxiety disorder History of seizure Hypertension Hyponatremia Tobacco use disorder Vitamin D deficiency Surgical History (Updated 02/14/22 @ 15:38 by Bi Ramirez MD) History of coronary artery stent placement Family History (Updated 02/14/22 @ 15:39 by Bi Ramirez MD) Father Alcohol dependence Diabetes Coronary artery disease Sister Alcohol dependence Diabetes Mother Pulmonary fibrosis Social History (Updated 02/14/22 @ 15:41 by Bi Ramirez MD) Narrative: 52-year-old male resident of [facility] [place]. He has lived there since earlier in 2020. Code status is full. Healthcare power of deputy commonwealth's attorney would be his father, Farhan Krishnamurthy. Other close family is his sister. He has been smoking about a pack of cigarettes a day since age 16. He does not drink alcohol. He does not use recreational drugs. Smoking Status: Current every day smoker How often do you have a drink containing alcohol: never AUDIT-C Alcohol total score: 0 Non-prescribed substance use: denies use service: No Meds Home Medications and Allergies Home Medications Medication Instructions Recorded Confirmed Type Risperdal 50 mg IM .[id number] 02/10/22 02/14/22 History alprazolam 0.5 mg tablet 0.5 mg PO BID 02/10/22 02/14/22 History amlodipine 10 mg tablet 10 mg PO DAILY 02/10/22 02/14/22 History aspirin 81 mg tablet,delayed 81 mg PO DAILY 02/10/22 02/14/22 History release (Ecotrin Low Strength) buspirone 10 mg tablet 30 mg PO TID 02/10/22 02/14/22 History divalproex 500 mg tablet,delayed 1,000 mg PO BID 02/10/22 02/14/22 History release empagliflozin 10 mg tablet 10 mg PO DAILY 02/10/22 02/14/22 History (Jardiance) famotidine 20 mg tablet 20 mg PO BID 02/10/22 02/14/22 History gabapentin 300 mg capsule 900 mg PO TID 02/10/22 02/14/22 History insulin aspart U-100 100 unit/mL 10 unit subcut .tid WITH MEALS 02/10/22 02/14/22 History (3 mL) subcutaneous pen (Novolog Flexpen U-100 Insulin aspart) insulin degludec 200 unit/mL (3 28 unit subcut QHS 02/10/22 02/14/22 History mL) subcutaneous pen (Tresiba FlexTouch U-200 insulin) metformin 1,000 mg tablet 1,000 mg PO BID 02/10/22 02/14/22 History metoprolol succinate 50 mg 50 mg PO DAILY 02/10/22 02/14/22 History tablet,extended release 24 hr multivitamin (Daily Multi-Vitamin 1 tab PO DAILY 02/10/22 02/14/22 History tablet) quetiapine 200 mg tablet 200 mg PO HS 02/10/22 02/14/22 History risperidone 3 mg tablet 3 mg PO BID 02/10/22 02/14/22 History rosuvastatin 20 mg tablet 20 mg PO HS 02/10/22 02/14/22 History trihexyphenidyl 5 mg tablet 5 mg PO BID 02/10/22 02/14/22 History Allergies Allergy/AdvReac Type Severity Reaction Status Date / Time aripiprazole [From Abilify] Allergy Mild Verified 02/14/22 15:40 bupropion Allergy Mild Verified 02/14/22 15:40 haloperidol [From Haldol] Allergy Mild Verified 02/14/22 15:40 nitroglycerin Allergy Mild Verified 02/14/22 15:40 thiothixene [From Navane] Allergy Mild Verified 02/14/22 15:40 trifluoperazine Allergy Mild Verified 02/14/22 15:40 [From Stelazine] ziprasidone Allergy Mild Verified 02/14/22 15:40 Exam Narrative: Exam Narrative: He is alert and appears in no distress. He gives his own history. Occasionally goes off on tangents but is otherwise able to carry on a conversation. He is appropriate pleasant and cooperative. Head is without evidence of trauma. Eyes are normal. Oropharynx is normal. Neck is supple without mass or adenopathy. No jugular distension. Respirations with somewhat diminished breath sounds and a few basilar crackles which clear with coughing. Cardiovascular: S1, S2, regular rate and rhythm. No murmur gallop or rub. Abdomen: Bowel sounds are present. Abdomen is soft without tenderness or mass. Extremities with 3+ edema to the knees bilaterally. He has diminished pulses and diminished sensation in both feet. No skin breakdown or ulcerations present. He moves all 4 extremities well. Const: Vital Signs, click to edit/add: Vital Signs - 24 hr 02/14/22 10:20 02/14/22 12:00 02/14/22 10:51 Temperature 98 F Pulse Rate 71 Pulse Rate [Pulse Oximeter] 73 82 Respiratory Rate 18 20 Blood Pressure Blood Pressure [Ri ght Upper Arm] 116/65 118/71 Pulse Oximetry 91 94 88 Oxygen Delivery Me thod Room Air Nasal Cannula 02/14/22 10:57 02/14/22 11:00 02/14/22 11:02 Temperature Pulse Rate 73 72 75 Pulse Rate [Pulse Oximeter] Respiratory Rate Blood Pressure 122/68 133/74 Blood Pressure [Ri ght Upper Arm] Pulse Oximetry 87 L 88 89 Oxygen Delivery Me thod 02/14/22 11:30 02/14/22 11:32 02/14/22 12:00 Temperature Pulse Rate 73 71 79 Pulse Rate [Pulse Oximeter] Respiratory Rate Blood Pressure 126/68 Blood Pressure [Ri ght Upper Arm] Pulse Oximetry 90 91 96 Oxygen Delivery Me thod 02/14/22 12:02 02/14/22 12:30 02/14/22 12:33 Temperature Pulse Rate 78 82 84 Pulse Rate [Pulse Oximeter] Respiratory Rate Blood Pressure 118/71 140/76 H Blood Pressure [Ri ght Upper Arm] Pulse Oximetry 97 93 93 Oxygen Delivery Me thod 02/14/22 13:00 02/14/22 13:02 02/14/22 13:30 Temperature Pulse Rate 83 84 82 Pulse Rate [Pulse Oximeter] Respiratory Rate Blood Pressure 141/74 H Blood Pressure [Ri ght Upper Arm] Pulse Oximetry 87 L 85 L 93 Oxygen Delivery Me thod 02/14/22 13:33 02/14/22 14:00 02/14/22 14:02 Temperature Pulse Rate 79 89 89 Pulse Rate [Pulse Oximeter] Respiratory Rate Blood Pressure 136/78 143/76 H Blood Pressure [Ri ght Upper Arm] Pulse Oximetry 88 91 91 Oxygen Delivery Me thod 02/14/22 14:31 02/14/22 15:05 02/14/22 14:00 Temperature Pulse Rate 85 Pulse Rate [Pulse Oximeter] 81 90 Respiratory Rate 18 Blood Pressure Blood Pressure [Ri ght Upper Arm] 126/63 143/76 H Pulse Oximetry 85 L 88 90 Oxygen Delivery Me thod Room Air Nasal Cannula 02/14/22 13:30 02/14/22 13:00 Temperature Pulse Rate Pulse Rate [Pulse Oximeter] 82 83 Respiratory Rate Blood Pressure Blood Pressure [Ri ght Upper Arm] 136/78 141/74 H Pulse Oximetry 90 86 L Oxygen Delivery Me thod Nasal Cannula Room Air Hospitalist - H&P: Result Labs Labs: Short CBC 02/14/22 Range/Units 10:49 WBC 7.25 (4.50-11.00) K/uL Hgb 10.6 L (13.5-17.5) gm/dL Hct 30.9 L (37.0-53.0) % Plt Count 175 (140-440) K/uL BMP 02/14/22 10:49 Sodium 133 L Potassium 4.4 Chloride 97 Carbon Dioxide 28 BUN 19 Creatinine 1.1 Glucose 63 Calcium 8.4 Assessment and Plan Assessment and plan (1) Hypoxia: Status: Acute Plan Patient presents with recent history of cough, low-grade fever, hypoxia. He was treated for pneumonia and x-ray today shows no evidence of pneumonia. Cause for his hypoxia is uncertain. Will obtain a chest CT looking for pulmonary embolism. Other considerations include heart failure though not clinically evident on x-ray, COPD though also not obvious on exam, viral respiratory infection may be contributing, undiagnosed sleep apnea may be present as well. I am concerned about the altered mental status that is present on admission to the emergency department. This raises the possibility of either side effects from medications or possibly CO2 narcosis if he is hypoventilating at night. Will monitor this tonight including a blood gas in the morning. For now will continue his current medications and monitor his mental status and his oxygen closely. Total time spent today is 75 minutes, 50 minutes in coordination of care and discussing with patient and other providers ongoing evaluation management of hypoxia.
[2022-02-14 16:01] LABS: Troponin I* < 0.01 ng/mL (0.01-0.04)
[2022-02-14] MEDS: AZITHROMYCIN 250 MG TABLET 500 MG PO (17:06)
[2022-02-14] MEDS: NICOTINE 21 MG PATCH 1 PATCH TRANSDERMA (17:11)
--- NOTE | 2022-02-14 20:06 | PC.NURSE ---
Nurse Care Hours: [id number] Pt this shift arrived to floor from ED at 1515, ambulated by self around room. O2 2L NC keeping sats above 92%. On RA while ambulating in room. Pt is friendly but appears agitated. After getting assessment done, pt sat down for dinner tray but could not finish d/t fixating on phone and wallet that was left at home. See Mood and Behavior note. Pt apologized to lead technical writer for being difficult. Sore to upper lip, pt unsure of how it got there. Alert and oriented.
[2022-02-14] MEDS: BUSPIRONE 10 MG TABLET 30 MG PO (21:16)
[2022-02-14] MEDS: GABAPENTIN 300 MG CAPSULE 900 MG PO (21:16)
[2022-02-14] MEDS: METFORMIN 1,000 MG TABLET 1000 MG PO (21:17)
[2022-02-14] MEDS: ALPRAZolam 0.25 MG TABLET 0.5 MG PO (21:17)
[2022-02-14] MEDS: DIVALPROEX DELAYED RELEASE 250 MG TABLET 1000 MG PO (21:17)
[2022-02-14] MEDS: QUETIAPINE 100 MG TABLET 200 MG PO (21:18)
[2022-02-14] MEDS: ROSUVASTATIN CALCIUM 10 MG TABLET 20 MG PO (21:18)
[2022-02-14] MEDS: risperiDONE 1 MG TABLET 3 MG PO (21:18)
[2022-02-14] MEDS: FAMOTIDINE 20 MG TABLET PO (21:18)
[2022-02-14] MEDS: AMOXICILLIN 250 MG CAPSULE 500 MG PO (21:43)
[2022-02-15 03:00] VITALS: BP 142/79; PULSE 78; RESP 18; TEMP 36.4; O2SAT 94
--- NOTE | 2022-02-15 06:57 | PC.NURSE ---
23-07:pleasant and cooperative. Very talkative.?Indep. Fell asleep in chair. Got pt into bed. Pt requiring 1L O2 when asleep to maintain > 88%. 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 pt states he plans to quit smoking.
[2022-02-15 07:00] LABS: HCO3 VBG 32 mmol/L (21-28); PCO2 VBG 48 mmHG (40-50); PO2 VBG 73.5 mmHG (25-47); pH VBG 7.427 (7.32-7.43)
[2022-02-15 07:40] VITALS: BP 133/65; PULSE 85; RESP 18; TEMP 36.7; O2SAT 92
[2022-02-15 07:48] LABS: Chloride* 94 mmol/L (96-114)
[2022-02-15 07:49] LABS: Potassium* 4.5 mmol/L (3.6-5.1); Sodium* 131 mmol/L (135-149)
[2022-02-15 07:51] LABS: Est. Creatinine Clearance* 89.22; Estimated Glomerular Filt Rate 91 ml/min
[2022-02-15 07:52] LABS: Blood Urea Nitrogen* 20 mg/dL (7-30); Calcium* 8.2 mg/dL (8.4-10.6); Carbon Dioxide* 30 mmol/L (20-32); Glucose* 83 mg/dL (60-115)
[2022-02-15] MEDS: METOPROLOL SUCCINATE (XL) 50 MG TAB PO (08:30)
[2022-02-15] MEDS: FAMOTIDINE 20 MG TABLET PO (08:30)
[2022-02-15] MEDS: AMLODIPINE 10 MG TABLET PO (08:30)
[2022-02-15] MEDS: GABAPENTIN 300 MG CAPSULE 900 MG PO (08:30)
[2022-02-15] MEDS: ALPRAZolam 0.25 MG TABLET 0.5 MG PO (08:30)
[2022-02-15] MEDS: DIVALPROEX DELAYED RELEASE 250 MG TABLET 1000 MG PO (08:30)
[2022-02-15] MEDS: MULTIVITAMIN/MINERALS 1 TABLET 1 TAB PO (08:30)
[2022-02-15] MEDS: METFORMIN 1,000 MG TABLET 1000 MG PO (08:30)
[2022-02-15] MEDS: ASPIRIN 81 MG TABLET EC PO (08:31)
[2022-02-15] MEDS: risperiDONE 1 MG TABLET 3 MG PO (08:31)
[2022-02-15] MEDS: BUSPIRONE 10 MG TABLET 30 MG PO (08:31)
--- NOTE | 2022-02-15 09:44 | PM.DS1 ---
DS: Providers Provider Time Seen by Provider: 09:45 Date Seen: 02/15/22 Date of admission: 02/14/22 14:47 Primary care physician: Zhane Stanley DO Admitting Clinician: Reyes Graff MD Attending Physician on discharge: Reyes Graff MD Date of Discharge: 02/15/22 DS: Diagnosis Discharge Diagnosis (1) Hypoxia: Status: Acute Problem details: Hypoxia likely due to pneumonia. If continued concern about oxygenation consider outpatient pulmonary function testing and sleep study (2) Pneumonia: Status: Acute Problem details: Mild right upper lobe pneumonia seen on chest CT but not chest x-ray. Finished course of amoxicillin and azithromycin (3) Altered mental status: Status: Acute Problem details: Mental status has been normal through the hospital stay (4) Tobacco use disorder: Status: Acute Problem details: Encouraged smoking cessation. Start nicotine patch. (5) Hyponatremia: Status: Acute Problem details: Mild. Chronic. Follow up as outpatient as needed (6) Bipolar 1 disorder: Status: Acute (7) Lower extremity edema: Status: Acute Problem details: Continue support hose. Initiate low-dose diuretic and potassium. DS: Summary Hospital Course Hospital Course: 52-year-old male admitted to the hospital for ongoing hypoxia in the context of right upper lobe pneumonia. Patient was also noted to have altered mental status, primarily lethargy, on presentation to the emergency room. This resolved without any intervention. He was continued on a Zithromax and amoxicillin for pneumonia. O2 sats were in the low 90s overnight and mid 90s this morning on room air. Time Spent with Patient Time attestation: Total time spent providing and/or coordinating discharge services: Exam Narrative: Exam Narrative: He is alert and appears in no distress. Breathing is unlabored. Respirations with occasional basilar crackle noted bilaterally. No wheezing. Fair air exchange all lung menendez. Cardiovascular: S1, S2, regular rate and rhythm. Const: Vital Signs, click to edit/add: Vital Signs - 24 hr 02/14/22 10:20 02/14/22 12:00 02/14/22 10:51 Temperature 98 F Pulse Rate 71 Pulse Rate [Pulse Oximeter] 73 82 Respiratory Rate 18 20 Blood Pressure Blood Pressure [Le ft Arm] Blood Pressure [Ri ght Upper Arm] 116/65 118/71 Pulse Oximetry 91 94 88 Oxygen Delivery Me thod Room Air Nasal Cannula Oxygen Flow Rate 02/14/22 10:57 02/14/22 11:00 02/14/22 11:02 Temperature Pulse Rate 73 72 75 Pulse Rate [Pulse Oximeter] Respiratory Rate Blood Pressure 122/68 133/74 Blood Pressure [Le ft Arm] Blood Pressure [Ri ght Upper Arm] Pulse Oximetry 87 L 88 89 Oxygen Delivery Me thod Oxygen Flow Rate 02/14/22 11:30 02/14/22 11:32 02/14/22 12:00 Temperature Pulse Rate 73 71 79 Pulse Rate [Pulse Oximeter] Respiratory Rate Blood Pressure 126/68 Blood Pressure [Le ft Arm] Blood Pressure [Ri ght Upper Arm] Pulse Oximetry 90 91 96 Oxygen Delivery Me thod Oxygen Flow Rate 02/14/22 12:02 02/14/22 12:30 02/14/22 12:33 Temperature Pulse Rate 78 82 84 Pulse Rate [Pulse Oximeter] Respiratory Rate Blood Pressure 118/71 140/76 H Blood Pressure [Le ft Arm] Blood Pressure [Ri ght Upper Arm] Pulse Oximetry 97 93 93 Oxygen Delivery Me thod Oxygen Flow Rate 02/14/22 13:00 02/14/22 13:02 02/14/22 13:30 Temperature Pulse Rate 83 84 82 Pulse Rate [Pulse Oximeter] Respiratory Rate Blood Pressure 141/74 H Blood Pressure [Le ft Arm] Blood Pressure [Ri ght Upper Arm] Pulse Oximetry 87 L 85 L 93 Oxygen Delivery Me thod Oxygen Flow Rate 02/14/22 13:33 02/14/22 14:00 02/14/22 14:02 Temperature Pulse Rate 79 89 89 Pulse Rate [Pulse Oximeter] Respiratory Rate Blood Pressure 136/78 143/76 H Blood Pressure [Le ft Arm] Blood Pressure [Ri ght Upper Arm] Pulse Oximetry 88 91 91 Oxygen Delivery Me thod Oxygen Flow Rate 02/14/22 14:31 02/14/22 15:05 02/14/22 14:00 Temperature Pulse Rate 85 Pulse Rate [Pulse Oximeter] 81 90 Respiratory Rate 18 Blood Pressure Blood Pressure [Le ft Arm] Blood Pressure [Ri ght Upper Arm] 126/63 143/76 H Pulse Oximetry 85 L 88 90 Oxygen Delivery Me thod Room Air Nasal Cannula Oxygen Flow Rate 02/14/22 13:30 02/14/22 13:00 02/14/22 16:01 Temperature Pulse Rate Pulse Rate [Pulse Oximeter] 82 83 75 Respiratory Rate 18 Blood Pressure Blood Pressure [Le ft Arm] 124/64 Blood Pressure [Ri ght Upper Arm] 136/78 141/74 H Pulse Oximetry 90 86 L 95 Oxygen Delivery Me thod Nasal Cannula Room Air Nasal Cannula Oxygen Flow Rate 2 02/14/22 16:30 02/14/22 15:30 02/14/22 15:30 Temperature Pulse Rate Pulse Rate [Pulse Oximeter] Respiratory Rate 18 Blood Pressure Blood Pressure [Le ft Arm] Blood Pressure [Ri ght Upper Arm] Pulse Oximetry 94 94 94 Oxygen Delivery Me thod Nasal Cannula Nasal Cannula Oxygen Flow Rate 2 2 02/14/22 19:00 02/14/22 23:00 02/14/22 23:00 Temperature 98.8 F Pulse Rate Pulse Rate [Pulse Oximeter] 75 75 Respiratory Rate 18 18 Blood Pressure Blood Pressure [Le ft Arm] 168/88 H Blood Pressure [Ri ght Upper Arm] Pulse Oximetry 93 94 Oxygen Delivery Me thod Room Air Oxygen Flow Rate 02/14/22 23:00 02/14/22 23:00 02/15/22 03:00 Temperature 97.6 F 97.6 F Pulse Rate Pulse Rate [Pulse Oximeter] 75 78 Respiratory Rate 18 18 18 Blood Pressure Blood Pressure [Le ft Arm] 137/71 142/79 H Blood Pressure [Ri ght Upper Arm] Pulse Oximetry 94 94 94 Oxygen Delivery Me thod Room Air Room Air Room Air Oxygen Flow Rate 02/15/22 07:40 02/15/22 07:40 02/15/22 07:40 Temperature 98.0 F Pulse Rate Pulse Rate [Pulse Oximeter] 85 Respiratory Rate 18 Blood Pressure Blood Pressure [Le ft Arm] 133/65 Blood Pressure [Ri ght Upper Arm] Pulse Oximetry 92 92 92 Oxygen Delivery Me thod Nasal Cannula Nasal Cannula Oxygen Flow Rate 1 1 Documenting provider has reviewed patient's vital signs: yes DS: Data Data Completed and Pending Completed studies during hospitalization: [place] [address] Diagnostic Imaging Report Patient: Timur Krishnamurthy MR#: [id number] : 1970 Acct:[id number] Loc: [id number] Service Date: 02/14/[address]: Reyes Graff M.D. Ordering Physician: Bi Ramirez M.D. Date of Service: 02/14/22 Procedure(s): CT angio chest PE protocol Accession Number(s): [id number] cc: Bi Ramirez M.D.; Zhane Stanley D.O.~ For Patients:? As a result of the Cures Act, medical imaging exams and procedure reports are released immediately into your electronic medical record.? You may view this report before your referring provider.? If you have questions, please contact your health care provider. INDICATION: Hypoxia TECHNIQUE: CT chest pulmonary angiogram acquired with IV contrast. Approximately 95 cc of Isovue 370 contrast was administered intravenously. COMPARISON: Chest x-ray earlier same date 02/14/2022 FINDINGS: The heart is normal in size. Of valuation of the segmental and subsegmental branches is somewhat limited due to respiratory motion. No clear filling defect is seen to suggest a pulmonary embolus. The pulmonary artery is normal in caliber. Mildly prominence bilateral hilar lymph nodes there are nonspecific and likely reactive. Evaluation is somewhat limited due to respiratory motion. There patchy, upper lobe predominance ground-glass opacity. Atelectasis or consolidation within the lung bases. Negative for pleural effusion or pneumothorax. Within the upper abdomen the liver demonstrates diffuse decreased attenuation, suggestive of hepatic steatosis. The remainder of the upper abdomen is unremarkable. The bones are unremarkable. IMPRESSION: 1. Negative for pulmonary embolus, however evaluation of the segmental and subsegmental branches is somewhat limited due to motion. 2. Patchy, predominantly upper lobe ground-glass opacities. Findings could be infectious, inflammatory or pulmonary edema. Dictated by Tamia Hung MD @ 02/14/2022 4:11:18 PM Please note that all CT scans at this facility use dose modulation, iterative reconstruction, and/or weight-based dosing when appropriate to reduce radiation dose to as low as reasonably achievable. Dictated by: Tamia Hung MD @ 02/14/2022 16:11:28 (Electronically Signed) Labs on day of discharge: Labs from last 24 hours 02/15/22 02/15/22 02/14/22 06:15 06:15 10:50 WBC RBC Hgb Hct MCV MCH MCHC RDW Coeff of Arlene Plt Count Neut % (Auto) Lymph % (Auto) Oldham % (Auto) Eos % (Auto) Baso % (Auto) Neut # (Auto) Lymph # (Auto) [place]ham # (Auto) Eos # (Auto) Baso # (Auto) Abs Immat Gran (auto) D-Dimer Quant (PE/DVT) 1.12 H VBG pH 7.427 VBG pCO2 48 VBG pO2 73.5 H VBG HCO3 32 H Sodium 131 L Potassium 4.5 Chloride 94 L Carbon Dioxide 30 BUN 20 Creatinine 1.0 Estimated Creat Clear 89.22 Estimated GFR 91 Glucose 83 Calcium 8.2 L Troponin I NT-Pro-B Natriuret Pep SARS-CoV-2 (PCR) Influenza Type A (PCR) Influenza Type B (PCR) RSV (PCR) 02/14/22 02/14/22 02/14/22 10:49 10:49 10:49 WBC RBC Hgb Hct MCV MCH MCHC RDW Coeff of Arlene Plt Count Neut % (Auto) Lymph % (Auto) [place] % (Auto) Eos % (Auto) Baso % (Auto) Neut # (Auto) Lymph # (Auto) [place] # (Auto) Eos # (Auto) Baso # (Auto) Abs Immat Gran (auto) D-Dimer Quant (PE/DVT) VBG pH VBG pCO2 VBG pO2 VBG HCO3 Sodium 133 L Potassium 4.4 Chloride 97 Carbon Dioxide 28 BUN 19 Creatinine 1.1 Estimated Creat Clear 81.11 Estimated GFR 81 Glucose 63 Calcium 8.4 Troponin I < 0.01 L NT-Pro-B Natriuret Pep Cancelled 668 H SARS-CoV-2 (PCR) Negative SARS-CoV-2 Influenza Type A (PCR) Negative PCR FLU A Influenza Type B (PCR) Negative PCR FLU B RSV (PCR) Negative PCR RSV 02/14/22 10:49 WBC 7.25 RBC 3.43 L Hgb 10.6 L Hct 30.9 L MCV 90 MCH 31 MCHC 34 RDW Coeff of Arlene 11.8 Plt Count 175 Neut % (Auto) 53.7 Lymph % (Auto) 24.0 Oldham % (Auto) 19.9 H Eos % (Auto) 1.8 Baso % (Auto) 0.3 Neut # (Auto) 3.90 Lymph # (Auto) 1.74 Oldham # (Auto) 1.40 H Eos # (Auto) 0.13 Baso # (Auto) 0.02 Abs Immat Gran (auto) 0.02 D-Dimer Quant (PE/DVT) VBG pH VBG pCO2 VBG pO2 VBG HCO3 Sodium Potassium Chloride Carbon Dioxide BUN Creatinine Estimated Creat Clear Estimated GFR Glucose Calcium Troponin I NT-Pro-B Natriuret Pep SARS-CoV-2 (PCR) Influenza Type A (PCR) Influenza Type B (PCR) RSV (PCR) Discharge Plan Discharge Disposition: Home, Self-Care Date of Admission: 02/14/22 14:47 Primary Care Provider: Zhane Stanley Condition: Improved Anticipated Discharge Date/Time: 02/15/22 09:52 Discharge Medications: New furosemide 20 mg tablet 20 mg PO DAILY Qty: 30 2RF potassium chloride 10 mEq tablet extended release 10 meq PO DAILY Qty: 30 2RF nicotine 21-14-7 mg/24 hr patch, TD daily, sequential 1 patch transdermal DAILY Qty: 56 0RF Continued alprazolam 0.5 mg tablet 0.5 mg PO BID amlodipine 10 mg tablet 10 mg PO DAILY aspirin [Ecotrin Low Strength] 81 mg tablet,delayed release (DR/EC) 81 mg PO DAILY buspirone 10 mg tablet 30 mg PO TID divalproex 500 mg tablet,delayed release (DR/EC) 1,000 mg PO BID famotidine 20 mg tablet 20 mg PO BID gabapentin 300 mg capsule 900 mg PO TID Jardiance 10 mg tablet 10 mg PO DAILY metformin 1,000 mg tablet 1,000 mg PO BID metoprolol succinate 50 mg tablet extended release 24 hr 50 mg PO DAILY multivitamin [Daily Multi-Vitamin] Tablet 1 tab PO DAILY insulin aspart U-100 [Novolog Flexpen U-100 Insulin] 100 unit/mL (3 mL) insulin pen 10 unit subcut .tid WITH MEALS quetiapine 200 mg tablet 200 mg PO HS risperidone 3 mg tablet 3 mg PO BID Risperdal 50 mg 50 mg IM [id number] rosuvastatin 20 mg tablet 20 mg PO HS insulin degludec [Tresiba FlexTouch U-200] 200 unit/mL (3 mL) insulin pen 28 unit subcut QHS trihexyphenidyl 5 mg tablet 5 mg PO BID Rx Instructions: give with food (meal/snack) azithromycin [Zithromax Z-Christiano] 250 mg tablet See Taper PO DAILY Qty: 6 0RF Taper: Z-CHRISTIANO 500 mg Q24H for 1 Day and 0 Hour 250 mg Q24H for 4 Days and 0 Hour Rx Instructions: For 250 mg dose pack: take 500 mg today (day 1), then 250 mg for 4 days (days 2-5) orally daily; Discharge Orders: Discharge Order (Routine); Ordered 02/15/22 Ordered By: Bi Ramirez Additional Instructions: See your doctor in 1 week for recheck of your pneumonia and your basic metabolic panel. Follow Up Appointments: Zhane Stanley DO [Primary Care Provider] - (Follow-up in 1 week. Check basic metabolic panel.) Forms: [employer] Info Instructions
[2022-02-15] MEDS: AMOXICILLIN 250 MG CAPSULE 500 MG PO (09:45)
[2022-02-15] MEDS: FUROSEMIDE 20 MG TABLET PO (10:26)
[2022-02-15] MEDS: POTASSIUM CHLORIDE 10 MEQ CAPSULE ER PO (10:26)
--- NOTE | 2022-02-15 10:56 | PC.NURSE ---
Pt. discharged back to [place], [facility] living facility. [id number] report given to Nurse Anni at [place].
== END 2022-02-15 10:57 | disposition home or self-care (01) ==
LOC: ED 14:36 → MEDSURG 14:51
PROVIDERS: Family Medicine; Admitting Provider Internal Medicine; Emergency Provider Emergency Medicine Emergency Medical Services; PCP Family Medicine; Visit Provider Internal Medicine
DX: R09.02 Hypoxemia (principal); R60.0 Localized edema; J18.9 Pneumonia, unspecified organism; R79.89 Other specified abnormal findings of blood chemistry; E11.69 Type 2 diabetes mellitus with other specified complication; I25.10 Atherosclerotic heart disease of native coronary artery without angina pectoris; R41.82 Altered mental status, unspecified; F31.9 Bipolar disorder, unspecified; E87.1 Hypo-osmolality and hyponatremia; E78.5 Hyperlipidemia, unspecified; I10 Essential (primary) hypertension; F17.200 Nicotine dependence, unspecified, uncomplicated; R06.2 Wheezing; Z79.84 Long term (current) use of oral hypoglycemic drugs; Z79.82 Long term (current) use of aspirin; Z79.4 Long term (current) use of insulin
CPT/HCPCS: 36415; 71045; 71260; 80048; 82803; 82962; 83880; 84484; 85025; 85379; 87502; 87634; 87635; 93005; 94664; 94761; 96372; 96374; 97110; 97116; 97161; 99285; A9153; A9270; G0378; J1940; Q9967; S4990

== ENCOUNTER 2022-03-14 17:35 | Emergency (ER) | payer MEDICARE, MEDICAID, SELFPAY ==
[2022-03-14 18:00] VITALS: BP 146/77; PULSE 72; RESP 18; TEMP 36.3; O2SAT 94; BMI 30.1
--- NOTE | 2022-03-14 18:11 | CRLHL7_ITS ---
For Patients: As a result of the Cures Act, medical imaging exams and procedure reports are released immediately into your electronic medical record. You may view this report before your referring provider. If you have questions, please contact your health care provider. Indication: Injury Technique: A total of three views of the pelvis and right hip were acquired.An AP view of the pelvis was acquired as well as an AP and lateral view of the right hip Comparison: None Findings: Bones: Alignment is normal. No fractures or bone lesions. Joint spaces: Degenerative changes of the visualized lower lumbar spine Soft tissues: Atherosclerotic vascular calcifications. Impression: No acute fracture, dislocation or destructive process. Dictated by Johnnie Montgomery MD @ 03/14/2022 6:55:12 PM (Electronically Signed)
--- NOTE | 2022-03-14 18:12 | ED_ITS ---
HPI - General Adult General Chief complaint: Head Injury/Pain Stated complaint: Fell and hit his head Time Seen by Provider: 03/14/22 17:38 History of Present Illness HPI narrative: This 52-year-old male comes in for evaluation of an injury that occurred just prior to arrival. He states that he was squatting down and he fell over backwards from a squatting position 1st hitting his lower back and then hitting his head. He did not have loss of consciousness. He does not report a hea dache. He was able to get up and ambulate. He states now that he has pain in his right hip region when getting out of the car to arrive here. He does not have any neck or back pain. Related Data Home Medications Medication Instructions Recorded Confirmed Risperdal 50 mg IM .[id number] 02/10/22 02/14/22 alprazolam 0.5 mg tablet 0.5 mg PO BID 02/10/22 02/14/22 amlodipine 10 mg tablet 10 mg PO DAILY 02/10/22 02/14/22 aspirin 81 mg tablet,delayed 81 mg PO DAILY 02/10/22 02/14/22 release (Ecotrin Low Strength) buspirone 10 mg tablet 30 mg PO TID 02/10/22 02/14/22 divalproex 500 mg tablet,delayed 1,000 mg PO BID 02/10/22 02/14/22 release empagliflozin 10 mg tablet 10 mg PO DAILY 02/10/22 02/14/22 (Jardiance) famotidine 20 mg tablet 20 mg PO BID 02/10/22 02/14/22 gabapentin 300 mg capsule 900 mg PO TID 02/10/22 02/14/22 insulin aspart U-100 100 unit/mL 10 unit subcut .tid WITH MEALS 02/10/22 02/14/22 (3 mL) subcutaneous pen (Novolog Flexpen U-100 Insulin aspart) insulin degludec 200 unit/mL (3 28 unit subcut QHS 02/10/22 02/14/22 mL) subcutaneous pen (Tresiba FlexTouch U-200 insulin) metformin 1,000 mg tablet 1,000 mg PO BID 02/10/22 02/14/22 metoprolol succinate 50 mg 50 mg PO DAILY 02/10/22 02/14/22 tablet,extended release 24 hr multivitamin (Daily Multi-Vitamin 1 tab PO DAILY 02/10/22 02/14/22 tablet) quetiapine 200 mg tablet 200 mg PO HS 02/10/22 02/14/22 risperidone 3 mg tablet 3 mg PO BID 02/10/22 02/14/22 rosuvastatin 20 mg tablet 20 mg PO HS 02/10/22 02/14/22 trihexyphenidyl 5 mg tablet 5 mg PO BID 02/10/22 02/14/22 Previous Rx's Medication Instructions Recorded azithromycin 250 mg tablet See Taper PO DAILY #6 tabs 02/12/22 (Zithromax Z-Christiano) furosemide 20 mg tablet 20 mg PO DAILY #30 tabs 02/15/22 nicotine 1 patch transdermal DAILY #56 02/15/22 21mg/24hr-14mg/24hr-7mg/24hr daily patches transderm patches,sequentl potassium chloride 10 mEq 10 meq PO DAILY #30 tabs 02/15/22 tablet,extended release Allergies Allergy/AdvReac Type Severity Reaction Status Date / Time aripiprazole [From Abilify] Allergy Mild Verified 02/14/22 15:40 bupropion Allergy Mild Verified 02/14/22 15:40 haloperidol [From Haldol] Allergy Mild Verified 02/14/22 15:40 nitroglycerin Allergy Mild Verified 02/14/22 15:40 thiothixene [From Navane] Allergy Mild Verified 02/14/22 15:40 trifluoperazine Allergy Mild Verified 02/14/22 15:40 [From Stelazine] ziprasidone Allergy Mild Verified 02/14/22 15:40 Review of Systems Status of ROS: Reports: 10 or more systems reviewed and unremarkable except as noted in History and below Narrative: Constitutional: No fevers, no weight gain or loss. Eyes: No discharge. No vision changes. HENT: No congestion, no sore throat, no ear pain. Cardiovascular: No chest pain, no palpitations. Respiratory: No shortness of breath, no wheezes, no cough. Gastrointestinal: No abdominal pain, no vomiting, no diarrhea. Genitourinary: No dysuria, no hematuria. Musculoskeletal: Normal range of motion. Right hip pain as described above. Skin: No rashes, no pruritis. Neurological: No dizziness, weakness, sensory change, speech change. Endo/Heme/Allergies: No bruising or bleeding. No polydipsia. Pysch: no suicidality, no anxiety, no insomnia. All other systems reviewed and are negative. [facility] Medical History (Updated 03/14/22 @ 18:40 by Hector Park MD) Bipolar 1 disorder Coronary artery disease Diabetes mellitus type 2 in obese Diabetic peripheral neuropathy Diabetic retinopathy Dyslipidemia Generalized anxiety disorder History of seizure Hypertension Hyponatremia Lower extremity edema Tobacco use disorder Vitamin D deficiency Surgical History (Updated 02/14/22 @ 15:38 by Bi Ramirez MD) History of coronary artery stent placement Family History (Updated 02/14/22 @ 15:39 by Bi Ramirez MD) Father Alcohol dependence Diabetes Coronary artery disease Sister Alcohol dependence Diabetes Mother Pulmonary fibrosis Social History (Updated 02/14/22 @ 15:41 by Bi Ramirez MD) Narrative: 52-year-old male resident of [facility]. He has lived there since earlier in 2020. Code status is full. Healthcare power of corporate associate attorney would be his father, Farhan Krishnamurthy. Other close family is his sister. He has been smoking about a pack of cigarettes a day since age 16. He does not drink alcohol. He does not use recreational drugs. Highest level of school completed/degree received: some college, no degree Smoking Status: Current every day smoker Do you use any of these nicotine containing products: None Second hand tobacco smoke exposure: Yes How often do you have a drink containing alcohol: never AUDIT-C Alcohol total score: 0 Non-prescribed substance use: denies use Caffeine: Yes (2 cans pop daily) Do you think of yourself as: straight/heterosexual Gender Identity: male service: No Exam Narrative: Exam Narrative: Constitutional: Well-developed, well-nourished, no acute distress. HEENT: Normocephalic, atraumatic. No sign of injury. No abrasion or laceration. Neck: Normal range of motion. Nontender. Supple. Heart: Regular. No murmurs. Normal rate. Intact distal pulses. Lungs: Clear to auscultation. No chest discomfort. No wheezes, rhonchi, or rales. Abdomen: Normal bowel sounds. Nontender. No rebound tenderness. Genitalia: Deferred. Back: No midline tenderness. Normal range of motion. Extremities: Normal range of motion. No injury. No pain when stressing his pelvis. No pain when log-rolling his right leg. Skin: Intact. No rash. Warm. No erythema or pallor. Neurologic: No altered sensation. No weakness. Alert and oriented. Psychiatric: No suicidality. No anxiety or depression. No insomnia. Nursing notes and vitals signs are reviewed. Const: Vital Signs, click to edit/add: Vital Signs - 24 hr 03/14/22 18:00 Temperature 97.3 F L Pulse Rate [Right Pulse Oximeter] 72 Respiratory Rate 18 Blood Pressure [Ri ght Upper Arm] 146/77 H Pulse Oximetry 94 Oxygen Delivery Me thod Room Air Course Vital Signs Vital signs: Initial Vital Signs Temperature 97.3 F L 03/14/22 18:00 Temperature Source Temporal Artery Scan 03/14/22 18:00 Pulse Rate 72 03/14/22 18:00 Respiratory Rate 18 03/14/22 18:00 Blood Pressure 146/77 H 03/14/22 18:00 Blood Pressure Mean 100 03/14/22 18:00 Blood Pressure Position Sitting 03/14/22 18:00 Pulse Oximetry 94 03/14/22 18:00 Oxygen Delivery Method 03/14/22 18:00 Vital Signs Temperature 97.3 F L 03/14/22 18:00 Pulse Rate 72 03/14/22 18:00 Respiratory Rate 18 03/14/22 18:00 Blood Pressure 146/77 H 03/14/22 18:00 Pulse Oximetry 94 03/14/22 18:00 Oxygen Delivery Method 03/14/22 18:00 Temperature 97.3 F L 03/14/22 18:00 Pulse Rate 72 03/14/22 18:00 Respiratory Rate 18 03/14/22 18:00 Blood Pressure 146/77 H 03/14/22 18:00 Pulse Oximetry 94 03/14/22 18:00 Oxygen Delivery Method 03/14/22 18:00 Medical Decision Making MDM Narrative Medical decision making narrative: This patient comes in for evaluation of a fall that occurred just prior to arrival. He was actually squatting and rolled over backwards and did bump his head after landing on his buttocks. There was no loss of consciousness. He is showing no sign of injury. He does not have any midline tenderness of his spine. There is no injury to his scalp and no evidence of neurologic deficit. He has a normal GCS at 15. These findings are all very reassuring. Given the mechanism of injury which is not sufficient for significant injury typically I discuss the role of CT imaging of his head but indicated that this would not be necessary. In a process of shared decision making the patient agreed. He was complaining of some hip pain but is ambulating normally. Nevertheless an x-ray of the right hip shows no acute findings. He is okay to be discharged home to continue current plans. Discharge Plan Discharge Clinical Impression: Fall Patient Disposition: Home, Self-Care Condition: Stable Additional Instructions: Continue current plans. Activity as tolerated. Use [id number] medicines as needed and directed. Follow up with MD or return if worsening. Prescriptions: No Action alprazolam 0.5 mg tablet 0.5 mg PO BID amlodipine 10 mg tablet 10 mg PO DAILY aspirin [Ecotrin Low Strength] 81 mg tablet,delayed release (DR/EC) 81 mg PO DAILY buspirone 10 mg tablet 30 mg PO TID divalproex 500 mg tablet,delayed release (DR/EC) 1,000 mg PO BID famotidine 20 mg tablet 20 mg PO BID gabapentin 300 mg capsule 900 mg PO TID Jardiance 10 mg tablet 10 mg PO DAILY metformin 1,000 mg tablet 1,000 mg PO BID metoprolol succinate 50 mg tablet extended release 24 hr 50 mg PO DAILY multivitamin [Daily Multi-Vitamin] Tablet 1 tab PO DAILY insulin aspart U-100 [Novolog Flexpen U-100 Insulin] 100 unit/mL (3 mL) insulin pen 10 unit subcut .tid WITH MEALS quetiapine 200 mg tablet 200 mg PO HS risperidone 3 mg tablet 3 mg PO BID Risperdal 50 mg 50 mg IM .[id number] rosuvastatin 20 mg tablet 20 mg PO HS insulin degludec [Tresiba FlexTouch U-200] 200 unit/mL (3 mL) insulin pen 28 unit subcut QHS trihexyphenidyl 5 mg tablet 5 mg PO BID Rx Instructions: give with food (meal/snack) azithromycin [Zithromax Z-Christiano] 250 mg tablet See Taper PO DAILY Qty: 6 0RF Taper: Z-CHRISTIANO 500 mg Q24H for 1 Day and 0 Hour 250 mg Q24H for 4 Days and 0 Hour Rx Instructions: For 250 mg dose pack: take 500 mg today (day 1), then 250 mg for 4 days (days 2-5) orally daily; furosemide 20 mg tablet 20 mg PO DAILY Qty: 30 2RF potassium chloride 10 mEq tablet extended release 10 meq PO DAILY Qty: 30 2RF nicotine 21-14-7 mg/24 hr patch, TD daily, sequential 1 patch transdermal DAILY Qty: 56 0RF Follow Up/Referrals: Zhane Stanley DO [Primary Care Provider] - Stand Alone Forms: [employer] Info Instructions
[2022-03-14] MEDS: KETOROLAC 10 MG TABLET PO (18:23)
--- OUTSIDE RECORDS SUMMARY | 2022-03-14 18:38 | XMS_ITS | Encounter Summary ---
:1970 Author Organization [employer] Address [address] [place] [address] Care Team Providers Name Role Phone Gagandeep Hinojosa MD Primary Care Provider Reason for Visit Reason Comments Forms Insulin Treated Diabetes Swati litus Report Encounter Details Date Type Department Care Team Description 06/12/2020 Telephone [place] [facility] Gagandeep Hinojosa, Forms (Insulin Treated Medicine Diabetes Mellitus [address] [facility] Report ) [place] [address] [place] [address] [phone] (Wo rk) Social History Tobacco Use Types [...] 6:16 PM CST Form completed and faxed ALCOHOLIZER Abel Novak MA - 06/13/2020 9:38 AM CST Form filled out and routed to Ashish to sign ALCOHOLIZER Viviana Anderson - 06/12/2020 12:19 PM CST Forms & Letters What form/letter are you requesting? Insulin [facility] This letter/other is needed from: Gagandeep Hinojosa MD for DMV How would you like to receive your completed letter/other? Fax to [place] [facility] at [facility] at this fax number: [phone] Additional comments (related to the above concern): [...] contact you.) Please route to: BRENT Coates ALCOHOLIZER documented in this encounter Plan of Treatment Not on filedocumented as of this encounter Visit Diagnoses Not on filedocumented in this encounter Care Teams Sheeting Puller Relationship Specialty Start Date End Date Gagandeep Hinojosa MD PCP - General 05/17/[address] [place] [address] Vane Zarate Psychiatrist Psychiatry 03/22/12 [facility] Mental Health Psychotherapist 08/04/17 [facility] Closing Coordinator 09/13/17 documented as of this encounter
--- OUTSIDE RECORDS SUMMARY | 2022-03-14 18:38 | XMS_ITS | Encounter Summary ---
:1970 Author Organization [employer] Address [address], [place] [address] Care Team Providers Name Role Phone Gagandeep Michaud MD Primary Care Provider Reason for Visit Reason Comments Refill Lasix Encounter Details Date Type Department Care Team Description 09/02/2020 Refill [facility] Gagandeep Michaud MD Refill (Lasix) [address] [facility] . [address] [place] [address] [place], [place] [id number] (Wo rk) Social History Tobacco Use Types [...] through Jose Danielina as he moved to [place] now. Will request refills through new provider. [...] TABLET BY MOUTH EVERY MORNING Interface, Out [employer] Prov Query - 09/02/2020 1:14 PM CDT [...] K: 5 mEq/L on 11/28/2018 Powered by [employer], Reference: [id number], 09/02/2020 1:14:54 PM CDT, Jaxon: MANUEL REFILL ([id number]) documented in this encounter Plan of Treatment Not on filedocumented as of this encounter Visit Diagnoses Not on filedocumented in this encounter Care Teams Food Checkers And Cashiers Supervisor Relationship Specialty Start Date End Date Gagandeep Michaud MD PCP - General 05/17/12 [address] [facility] [place] [address] Vane Zarate Psychiatrsamantha Psychiatry 03/22/12 [facility] Psychotherapist 08/04/17 [facility] Business Objects Consultant 09/13/17 documented as of this encounter
--- OUTSIDE RECORDS SUMMARY | 2022-03-14 18:38 | XMS_ITS | Encounter Summary ---
:1970 [facility] Address [address], [place] [address] Care Team Providers Name Role Phone Gagandeep Hinojosa MD Primary Care Provider Reason for Visit Reason Comments Patient Care Coordination Encounter Details Date Type Department Care Team Description 09/05/2020 Care Coord [facility] Deborah Rodrigues Patien t Care Phone Medicine [facility] Coordination [facility] [address] [place] [address] [phone] Social History Tobacco Use Types Packs/Day Years [...] Rodrigues LICSW - 09/05/2020 1:18 PM CDT White Sugar Boiler - Phone Call Contact with: Rustam Reason for call: Care Coordination Discussion/actions: Received a phone call from Rustam. He stated that he is seeing a provider in [place] and is planning on following up there. He requested his Dermatology appointment be cancelled at this time. Rustam also said that the insulin samples that he received are not needed anymore. Rustam did agree to continue contact with care coordination, as he is planning on moving back to [facility] after the first of the year. No immediate concerns at this time. Shared plan: -Care Coordination follow-up as needed. Pt verbalized understanding and agreed with plan of care and follow up. documented in this encounter Plan of Treatment Not on filedocumented as of this encounter Visit Diagnoses Diagnosis Health retirement, active care coordinati on - Primary documented in this encounter Care Teams Preform Machine Operator Relationship Specialty Start Date End Date Gagandeep Hinojosa MD PCP - General 05/17/12 [address] [facility] KATIANA Gerber [address] Vane Zarate Psychiatrist Psychiatry 03/22/12 [facility] Mental Health Psychotherapist 08/04/17 [facility] Material Damage Appraiser 09/13/17 documented as of this encounter
--- OUTSIDE RECORDS SUMMARY | 2022-03-14 18:38 | XMS_ITS | Clinical Summary ---
:1970 Author Organization [facility] [place] [address] Care Team Providers Name Role Phone Glenys Alcantar MD Unavailable [facility] [place] Unavailable Zhane Stanley DO Primary Care [...] tive (TYLENOL) 325 mg as needed tablet guaiFENesin Every 4 [...] 2 diabetes mellitus without complication, unspecified whether production support specialist insulin use (HC) polyethylene Drink up to [...] (NORVASC) Take 2 Tablets 28 tablet. 12 09/09/19 Active 5 mg (10 mg) by 22 [...] AT Chronic GERD BEDTIME NEEDED (STANDING ORDER) FreeStyle Bharath 2 To be used to 1 Each 0 11/21/19 Active ReaderIndications: read blood 22 Type 2 diabetes sugars per mellitus with aquatics lifeguard's diabetic directions. polyneuropathy, with long-term current use [...] MOUTH TWICE 22 tabletIndications: DAILY Chronic GERD amoxicillin-clavulan 0 02/13/20 Active ate 875-125 mg 22 tablet (AUGMENTIN) furosemide (LASIX) 0 02/16/20 A ctive 20 mg tablet 22 potassium chloride 0 02/16/20 A ctive (K-DUR, KLOR-CON 22 M10) 10 mEq tablet rosuvastatin Take 1 Tablet 90 Tablet 3 02/24/20 Act adithya (CRESTOR) 20 mg (20 mg) by 22 tabletIndications: mouth at Hyperlipidemia, bedtime. unspecified hyperlipidemia type ibuprofen (ADVIL; Every 6 Hours 0 Discontinued MOTRIN) 200 mg as needed 022 (Dupl icate tablet therapy (E-cancel not sent)) rosuvastatin TAKE 1 TABLET 90 Tablet 0 10/22/19 Dis continued (CRESTOR) 20 mg BY MOUTH EVERY 022 (*Med tabletIndications: NIGHT AT c omplete/Regime CAD in [place] artery BEDTIME n complete/L evel of care demond) Active Problems Problem Noted Date Mild nonproliferative [...] Encounters Date Type Specialty Care Team Description 02/23/2022 Telephone Zhane Stanley, fax DO 02/22/2022 Office Visit Zhane Stanley, Hospital F /U (DOD 02/15 DO Pneumonia ); Di abetes 02/22/2022 Travel 02/10/2022 Refill Shaqra, Zhane Анна, Refill Req uest DO (Famotidine) 02/08/2022 Telephone Zhane Stanley, Medication Management DO (ibuprofen clar ification) 02/08/2022 Telephone NelsonqSir sloani Анна, Refill Req uest ([place] DO Cough Drops - C samra, Ibuprofen Tab 2 00mg ) 01/28/2022 Refill Shaqra, Zhane Анна, Refill Req uest (Accu-chek DO Guide Test Stri ps) 01/19/2022 Refill Shaqra, Zhane Анна, Refill Req uest (HYDROXYZ DO HCL TAB) 01/14/2022 Telephone Zhane Stanley Анна, Referral DO 01/12/2022 Telephone Zhane Stanley, orders DO 12/29/2021 Refill Shaqra, Zhane Анна, Refill Req uest (NOVOLOG DO INJFLEX) 12/22/2021 Telephone Keila Diamond, MEHUL Appointment 12/21/2021 Office Visit Keila Diamond NP Consult (LD LS) 12/21/2021 Hospital Encounter Keila Diamond, MEHUL Encou nter for screening for malignant neoplasm of lung in current smoker with 30 pack year history or greater; Personal histor y of nicotine dependence 12/21/2021 Travel 12/14/2021 Refill Shaqra, Zhane Анна, Refill Req uest (Jardiance) DO from Last 3 Months Immunizations Name Administration Dates Next Due COVID-19 vaccine (Cazoomi 09/16/2020, 08/26/2020 30mcg/0.3mL) PF, MDV Hepatitis B (Adult) 08/18/2020, 12/18/2018 Influenza RIV4 (Age 18+ Years) 03/02/2021 PRESERV FREE Influenza Virus, Unspecified 08/23/2014, 03/14/2013, 012, 01/26/2011, 03/17/2009, 03/17/2009, 02/27/2007, 02/27/2007, 03/23/2006, 03/23/2006, 05/19/2005, 05/19/2005, 03/12/2002 Influenza, IIV3 (Age 6-35 mos) 02/01/2012, 01/22/2011 Influenza, IIV3 (Age >=3 years) 02/01/2012, 01/26/2011 Influenza, IIV4 02/02/2022, 01/07/2020, 01/16/2018, 02/16/2017, 02/24/2016, 03/27/2015, 01/16/2014 Influenza, [...] Tobacco Use Types Packs/Day Years Used Date Former Smoker Cigarettes 1 35 11/28/1984 - 1 Smokeless Tobacco: Never Used Tobacco Cessation: Counseling Given: Yes Alcohol Use Standard Drinks/Week Comments [...] Assigned at Date Recorded Not on file COVID-19 Exposure Response Date Recorded In the last 10 days, have you been in contact with No / Unsu re 02/22/2022 9:26 AM CDT someone who was confirmed or suspected to have Coronavirus/COVID-19? Obstetrics History Last Filed Vital Signs Vital Sign Reading Time Taken Comments Blood Pressure 121/69 02/22/2022 9:51 AM CDT Pulse 72 02/22/2022 9:51 AM CDT Temperature 36.5 ??C (97.7 ??F) 12/21/2021 10:56 AM CDT Respiratory Rate 18 12/21/2021 10:56 AM CDT Oxygen Saturation 98% 02/22/2022 9:51 AM CDT Inhaled Oxygen Concentration - - Weight 94 kg (207 lb 3.2 oz) 02/22/2022 9:51 AM CDT Height 176.5 cm (5' 9.49) 08/05/2021 10:42 AM CDT Body Mass Index 30.17 08/05/2021 10:42 AM CDT Plan of Treatment Upcoming Encounters Date Type Specialty Care Team Description 04/15/2022 Office Visit Johan Ye M D [address] [place] [address] (Wo rk) 05/25/2022 Office Visit Zhane Stanley , DO [address] [place], [place] [address] (Wo rk) Health Maintenance Due Date Last Done Comments Pneumococcal series for age 19-64 10/08/2010 10/08/2009 (2 - PCV) Colonoscopy through age 75 2015 Zoster (shingles) series for age 0901/22/2020 50+ (1 of 2) Hepatitis B series for Diabetes (3 12/18/2020 08/18/2020, 0 12/18/2018 of 3 - Risk 3-dose series) BMI (ht and wt on same day) for 08/05/2022 08/05/2021, 07/24, age 18+ 07/28/2020, Additional history exists Depression screening for age 12+ 08/12/2022 08/12/2021, , 08/18/2020, Additional history exists Low Dose CT (for lung CA) age 0812/21/2022 12/21/2021, 2016 50-80 Tetanus booster 11/03/2025 11/04/2015, 09/15/2005, 11/12/1998 Lipids for age 45-75 03/12/2026 03/12/2021, 06/26/2020, 10/15/2018, Additional history exists Tdap Completed 11/04/2015, 09/15/2005 HIV for age 15-65 Completed 06/25/2020 Hepatitis C screening for age Completed 06/25/2020 18-79 Influenza for age 50-64 Completed 02/02/2022, 03/02/2021, 01/07/2020, Additional history exists COVID-19 vaccine series Completed 02/03/2022, 10/01/2021, 03/02/2021, Additional history exists Procedures Procedure Name Priority Date/Time Associated Comments Diagnosis HEMOGLOBIN A1C Routine 02/22/2022 9:35 AM Type 2 diabetes Resu lts for this CDT mellitus with procedure are in diabetic the results polyneuropathy, section. with long-term current use of insulin (HC) CT CHEST SCREENING Routine 12/21/2021 11:32 AM Encounter for R esults for this LOW DOSE WO CONTRAST CDT screening for proced ure are in malignant neoplasm the resul ts of lung in current section. smoker with 30 pack year history or greater Personal history of nicotine dependence from Last 3 Months Results HEMOGLOBIN A1C MONITORING (POCT) (02/22/2022 9:35 AM CDT) P athologist Signature HEMOGLOBIN A1C 6.3 <=6.4 % 02/22/2022 [facility] MONITORING 9:44 AM CDT [place] (POCT) [facility] Specimen Anatomical Collection Method / Collection Time Recei abimael Time (Source) Location / Volume Laterality Blood BLOOD SPECIMEN / Venipuncture / 02/22/2022 9:35 2021 9:35 Unknown Unknown AM CDT AM CDT Narrative [facility] - 2021 9:44 AM CDT ? (<=6.9%) ? Indicates good control ? (7.0% to 7.9%) ? Indicates fa ir control ? (>=8.0%) ? Indicates poor control ?? NOTE: ??These thresholds are guideli lizbet and ?individual targets may va ry. Falsely low levels may be seen with: Recent Transfusion, Recent Significant B lood Loss, Hemolytic Diseases, or Falsely elevated levels may be seen with : Untreated Anemias, Splenectomy ? Zhane Stanley CHEMISTRY Performing Organization Address City/State/ZIP Code Phon e Number [facility] [address] [place] [address] CT CHEST SCREENING LOW DOSE WO CONTRAST [...] that all CT scans at this [facility] use dose modulation, iterative reconstruction [...] ?? If you have questions, please contact [facility] care provider. CT CHEST SCREENING LOW-DOSE WITHOUT [...] DISH . Upper abdomen: Unremarkable. Keila Diamond PLASTERER SPOT CT from Last 3 Months Insurance Payer Benefit Plan / Subscriber ID Effective Dates Phone Addre ss Type Group MEDICARE PART A MEDICARE PART [id number] 1995-Presen ATTN: CLAIMS - HB USE ONLY A HB ONLY t [address] [place] [address] MEDICARE PART B MEDICARE PART [id number] 2009-Presen ATTN: CLAIMS - HB USE ONLY B HB ONLY t [address] [place] [address] MEDICARE - PB MEDICARE PB [id number] 2009-Presen ATTN : CLAIMS USE ONLY ONLY t [address] [place] [address] MEDICARE PPS HC MEDICARE [id number] 1995-Presen [address] [place] [address] [place] [id number] 2020-Presen [address] [place] [address] Advance Directives Documents on File Type Date Recorded Patient Network Applications Specialist Explanati on POLST 08/20/2020 5:18 PM POLST [...] Code Status Discussion: Not Discussed Care Teams Elevator Repairer Relationship Specialty Start Date End Date Zhane Stanley DO PCP - General Internal Medicine 09/08/20 [address] [place] [address] Glenys Alcantar MD Endocrinology 05/03/17 [address] [place] [address] [facility], 05/21/20 [place] Samantha Minaya, Pharmacist Medication Pharmacology 10/21/20 PharmD Management [address] [place], [place] [id number]
--- OUTSIDE RECORDS SUMMARY | 2022-03-14 18:38 | XMS_ITS | Encounter Summary ---
:1970 Author Organization [facility] Address [address], [place] [address] Care Team Providers Name Role Phone Gagandeep Hinojosa MD Primary Care Provider Reason for Visit Reason Comments FOLLOW-UP,DIABETES Encounter Details Date Type Department Care Team Description 06/12/2020 Care Coord Office Judy Luke RN FOLLOW-UP,DIABETES Visit [address] [place] [address] [place] [phone] Social History Tobacco Use Types Packs/Day Years [...] 80-180 ?? Reji's direct phone number is [phone], after July 03 TER DIRECTIONAL SURVEY documented in this encounter Progress Notes Judy Pittman RN - 06/12/2020 11:00 AM CST RN Layout Artist Visit Pt: Timur Autumn Krishnamurthy Referred by: Gagandeep Hinojosa MD Reason [...] He reports he hasn't been doing well withhis mental health and had a hard time [...] him to stop accruing medical costs at [facility], once he is approved. Rustam will need to reapply annually, unless of course, he gets MA in the future. In the meantime, Rustam also applied for [facility] Financial Assistance. I emailed a scanned copyof Rustam's bank statement to Reina Marsh, Medical Records Library Professor. Housing Rustam states his current anxiety revolves around his living situation, a room he rented on [employer] [place]. He was told he has to move out by 06/26/20. Rustam has been working with his Chief Credit Officer, Han Arshad, who helped him apply for an IRTS in [place] where he could stay for up to 30-90 days, but he hasn't heard if he has been approved. Because his housing isn't stable at this time, I requested to have Arina and Reina mail any correspondence/cards to Lesly Rodrigues, [facility] Layout Artist at [facility], so it doesn't get lost and she can pass it on to Rustam. Medication Rustam was recently sent to a Crisis Center in [place] where they provided a supply of Tresiba [...] to have Jeysons insulin shipped directly to [facility] where we can hold onto it for him until he has a stable place to stay. Blood Glucose Rustam is using a [employer] Bharath CGM. [facility]. Rustam did not bring his reader today and does not have access to a computer to utilize [employer]. He receives help with applying his sensors [...] Rustam provided the contact information for his Chief Credit Officer and requested I call him directly to [...] leave to gather more paperwork for his Chief Credit Officer. I will notify Rustam when his insulin arrives and schedule a follow up visit. Family/social support: Patient attended today's visit alone. He currently lives alone. Current activity regimen: none Patient barrier(s) to learning identified: Finance, Emotional, Cognitive and Family support. BG Goals: Health Long-Term Lab Goal <7 [...] address to clinic address for [employer], [employer], [employer], and ADS. Requested refill of Bharath Sensors that are due in 06/3020. Left detailed message for MG Jasper Chief Credit Officer regarding Rustam's current needs. Will notify Rustam when [employer] insulin supply arrives. Rustam to call if symptoms of hypoglycemia or readings < 70 mg/dL. Rustam verbalized understanding and agreed with plan of care and follow up. TER DIRECTIONAL SURVEY Judy Pittman, JOSETTE - 06/12/2020 11:00 AM CST Tresiba U200, Novolog, and Novofine needles received from [facility]. Medication entered into [facility] and verified by Dr Hinojosa. Notified Rustam the medication is being store in the Injection Room refrigerator. Scheduled follow up on 06/25/20. TER DIRECTIONAL SURVEY Judy Pittman RN - 06/12/2020 11:00 AM CST Han Arshad is returning my call. He states he was successful in getting Rustam MA starting yesterday, but notes he has a $900/month spend-down. Han also reports he was notified by Julian, Director of the IRTS Program in [place], that they are not going to accept [...] in addition to stable housing. Both the [place] and [place] IRTS facilities have wait lists for 2-4 weeks. [facility] does have an immediate opening, however Rustam may not be able to afford the cost with only his SSI and MA. TER DIRECTIONAL SURVEY documented in this encounter Plan of Treatment Not on filedocumented as of this encounter Visit Diagnoses Diagnosis Uncontrolled type 2 diabetes mellitus wi th hyperglycemia (HRC) - Primary documented in this encounter Care Teams Merchandise Examiner Relationship Specialty Start Date End Date Gagandeep Hinojosa MD PCP - General 05/17/12 [address] [place] [address] Vane Zarate Psychiatrist Psychiatry 03/22/12 [facility] Health Psychotherapist 08/04/17 [facility] Chief Credit Officer 09/13/17 documented as of this encounter
--- OUTSIDE RECORDS SUMMARY | 2022-03-14 18:38 | XMS_ITS | Encounter Summary ---
:1970 Author Organization [facility] [employer] [facility] Address [address] [place] [address] Care Team Providers Name Role Phone Gagandeep Michaud MD Primary Care Provider Reason for Visit Reason Onset Date Comments Refill 07/09/2020 insulin aspart (YOEL LOG) 100 UNIT/ML pen injection Encounter Details Date Type Department Care Team Description 07/09/2020 Refill Gagandeep Storm, Rochelle waterman (insulin aspart Medicine (NOVOLOG) 100 UNIT/ML [address] pen injection) [place] [address] [place] [address] [phone] (Wo rk) Social History Tobacco Use Types [...] last 12 months and Please advise if local company intermodal truck driver supply is appropriate Last qualifying visit: 06/09/2020 [...] HBA1C: 11.3 % on 12/04/2019 Powered by iLogon, Reference: [id number], 07/09/2020 11:39:43 AM CDT, Pool: PN REFILL WIZARD ADMIN ([id number]) Sruthi Ledesma - 07/09/2020 11:39 AM CDT [...] refills) Please route to: Refill Pool (P [id number]) [facility] FP Pool [place] Patients ONLY (P [id number]) [facility] [place]AN [place] ONLY (P [id number]) documented in this encounter Plan of Treatment Not on filedocumented as of this encounter Visit Diagnoses Diagnosis Uncontrolled type 2 diabetes mellitus wi th hyperglycemia (HRC) documented in this encounter Care Teams Icing Mixer Relationship Specialty Start Date End Date Gagandeep Michaud MD PCP - General 05/17/12 [facility] [place] [address] Vane Zarate Psychiatrist Psychiatry 03/22/12 [facility] Psych[facility]ist 08/04/17 [facility] Stone Circular Sawyer 09/13/17 documented as of this encounter
--- OUTSIDE RECORDS SUMMARY | 2022-03-14 18:38 | XMS_ITS | Encounter Summary ---
:1970 Author Organization [facility] Address [address], [place] [address] Care Team Providers Name Role Phone Gagandeep Michaud MD Primary Care Provider Reason for Visit Reason Onset Date Comments Refill 07/01/2020 trihexyphenidyl (ART ANE) 2 MG tablet Encounter Details Date Type Department Care Team Description 07/01/2020 Refill [facility] Gagandeep Michaud, Rochelle l (trihexyphenidyl Medicine (ARTANE) 2 MG tablet) [address] [facility] . [address] [place] [id number] [place] [id number] [phone] (Wo rk) Social History Tobacco Use Types [...] 12/04/2019 by DANIAL INIGUEZ), Sig: take 1 to 2 tablets by [...] found) Next scheduled visit: None Powered by Andela, Reference: [id number], 07/01/2020 8:27:18 AM Minerva GRANGER ([id number]) documented in this encounter Plan of Treatment Not on filedocumented as of this encounter Visit Diagnoses Not on filedocumented in this encounter Care Teams Night Coordinator Relationship Specialty Start Date End Date Gagandeep Michaud MD PCP - General 05/17/12 [facility] [place] [address] Vane Zarate Psychiatrist Psychiatry 03/22/12 [facility] Psychotherapist 08/04/17 [facility] Fiberglasser 09/13/17 documented as of this encounter
--- OUTSIDE RECORDS SUMMARY | 2022-03-14 18:38 | XMS_ITS | Encounter Summary ---
:1970 Author Organization [facility] Address [address], [place] [address] Care Team Providers Name Role Phone Gagandeep Hinojosa MD Primary Care Provider Reason for Visit Reason Comments FYI Encounter Details Date Type Department Care Team Description 09/19/2020 Telephone [facility] Gagandeep Hinojosa MD FYI [address] [facility] . [address] [place] [address] [place], [place] [address] (Wo rk) Social History Tobacco Use Types [...] PCP. States that PCP can correspond with [facility] and he sees Dr. Zhane Stanley. If [...] filedocumented in this encounter Care Teams Back Winder Relationship Specialty Start Date End Date Gagandeep Hinojosa MD PCP - General 05/17/12 [address] [place] [address] Vane Zarate Psychiatrist Psychiatry 03/22/12 [facility] Psychotherapist 08/04/17 [facility] Desktop Publishing Associate 09/13/17 documented as of this encounter
--- OUTSIDE RECORDS SUMMARY | 2022-03-14 18:38 | XMS_ITS | Encounter Summary ---
:1970 Author Organization [facility] Address [address] [place] [address] Care Team Providers Name Role Phone Gagandeep Michaud MD Primary Care Provider Reason for Visit Reason Comments Refill metFORMIN (GLUCOPHAGE) 1000 MG tablet [Pharmacy Med Name: metFORMIN HCl 1000 MG Tablet]; lisinopril (ZEST RIL) 5 MG tablet [Pharmacy Med Name: Lisinopril 5 MG Tablet] Encounter Details Date Type Department Care Team Description 09/02/2020 Refill [facility] Gagandeep Michaud, Refil l (metFORMIN Medicine (GLUCOPHAGE) [address] tablet [[place] [address] [place] [address] Name: metFORMIN HCl 1000 [phone] (Wo rk) MG Tablet]; lisinopril (ZESTRIL) 5 [...] ENCOUNTER Routing to refill Pool Interface, Out Celect Prov Query - 09/03/2020 12:43 PM CDT [...] MICHAUD) Next scheduled visit: None Powered by SynergEyes by [email or web address], Reference: [id number], 09/03/2020 12:43:21 PM CDT, Pool: PN REFILL WIZARD ADMIN ([id number]) documented in this encounter Plan of Treatment Not on filedocumented as of this encounter Visit Diagnoses Not on filedocumented in this encounter Care Teams Air Brush Operator Relationship Specialty Start Date End Date Gagandeep Michaud MD PCP - General 05/17/[address] [place], [place] [address] [address] Vane Zarate Psychiatrist Psychiatry 03/22/12 [facility] Psychotherapist 08/04/17 [facility] Credit Risk Specialist 09/13/17 documented as of this encounter
--- OUTSIDE RECORDS SUMMARY | 2022-03-14 18:38 | XMS_ITS | Encounter Summary ---
:1970 Author Organization [facility] Address [address] [place] [address] Care Team Providers Name Role Phone Gagandeep Michaud MD Primary Care Provider Reason for Visit Reason Comments Refill metoprolol succinate (TOPROL XL) 50 MG 24 hour release tablet [Pharmacy Med Name: Metoprolol Succinate E R 50 MG Tablet extended release 24 hr] Encounter Details Date Type Department Care Team Description 09/02/2020 Refill [facility] Gagandeep Michaud, Refil l (metoprolol Medicine MD succinate (TOPROL XL) [address] MG 24 hour release [place] [address] [place] [address] tablet [Pharmacy Med [phone] (Wo rk) Name: Metoprolol Succinate ER 50 [...] 1 TABLET BY MOUTH DAILY Interface, Out Short Fuze Prov Query - 09/02/2020 1:16 PM CDT metoprolol succinate (TOPROL XL) 50 MG 24 hour release tablet [Pharmacy Med Name: Metoprolol Succinate ER 50 MG Tablet extended release 24 hr] Medication started: 12/09/2014 Last ordered by GAGANDEEP MCIHAUD F: 08/10/2019 (389 days ago) QTY: 90, Refills: 3, Sig: take 1 tablet by mouth once daily (changed but equivalent) -> Refill x 12 months, qty: 90, refills: 3 (until due for an office visit) Last qualifying visit: 06/09/2020 (with GAGANDEEP MICHAUD) Next scheduled visit: None Powered by Secucloud by LeadPages, Reference: [id number], 09/02/2020 1:16:41 PM CDT, Pool:MANUEL LANDAILL ([id number]) documented in this encounter Plan of Treatment Not on filedocumented as of this encounter Visit Diagnoses Diagnosis Essential hypertension (HRC) Unspecified essential hypertension documented in this encounter Care Teams Target Setter Relationship Specialty Start Date End Date Gagandeep Michaud MD PCP - General 05/17/12 [facility] [address] Vane Zarate Psychiatrsamantha Psychiatry 03/22/12 [facility] Psychotherapist 08/04/17 [facility] Cotton Agent 09/13/17 documented as of this encounter
--- OUTSIDE RECORDS SUMMARY | 2022-03-14 18:38 | XMS_ITS | Encounter Summary ---
:1970 Author Organization [facility] Address [address] [place] [address] Care Team Providers Name Role Phone Gagandeep Michaud MD Primary Care Provider Reason for Visit Reason Comments Refill NOVOFINE AUTOCOVER PEN NEEDL E 30G X 8 MM [Pharmacy Med Name: NovoFine Autocover Pen Needle 30G X 8 MM Miscellaneous] Encounter Details Date Type Department Care Team Description 09/07/2021 Refill [place] [facility] Gagandeep Michaud, [place] l (NOVOFINE Medicine AUTOCOVER PEN NEEDLE 30G [address] X 8 MM [Pharmacy Med [place] [address] [place] [address] Name: NovoFine Autocover [phone] (Wo rk) Pen Needle 30G X 8 [...] visit Patient no longer receiving care at [facility] Frontline: Route to Refill Wizard Admin Pool-PN (P [id number]) Shayy Haynes RN - 09/10/2021 9:52 AM CDT Further Assistance Needed on Refill from Optical Manager Patient is overdue for Office visit. An office visit is overdue (performed over 15 months ago, required every 12 months). Last qualifying visit: 06/09/2020 (with GAGANDEEP MICHAUD) Next scheduled visit: None Please call patient to schedule a Office/Video Visit and document using .OTTODUE. After attemptingto schedule patient: Please route to: [...] visit: None [employer] Embedded Refills, Reference: [id number], 09/07/2021 1:41:05 PM CDT, Pool: MANUEL REFILL ([id number]) documented in this encounter Plan of Treatment Not on filedocumented as of this encounter Visit Diagnoses Not on filedocumented in this encounter Care Teams Air Pollution Compliance Inspector Relationship Specialty Start Date End Date Gagandeep Michaud MD PCP - General 05/17/12 [address] [place] [address] Vane Zarate Psychiatrist Psychiatry 03/22/12 [facility] Psychotherapist 08/04/17 [facility] Second Rigger 09/13/17 documented as of this encounter
--- OUTSIDE RECORDS SUMMARY | 2022-03-14 18:38 | XMS_ITS | Encounter Summary ---
:1970 Author Organization [facility] Address [address] [address] Care Team Providers Name Role Phone Gagandeep Hinojosa MD Primary Care Provider Reason for Visit Reason Comments Patient Care Coordination Encounter Details Date Type Department Care Team Description 06/24/2020 Care Coord [facility] Deborah Rodrigues Patien t Care Phone Medicine [facility] Coordination [facility] [address] [place] [address] [phone] Social History Tobacco Use Types Packs/Day Years [...] hear back from him. Note routed to RN CC as an FYI TENANCE SUPERVISOR MECHANICAL documented in this encounter Plan of Treatment Not on filedocumented as of this encounter Visit Diagnoses Diagnosis Complex care coordination - Primary documented in this encounter Care Teams Membership Manager Relationship Specialty Start Date End Date Gagandeep Hinojosa MD PCP - General 05/17/12 [facility] [facility] [place] [address] Vane Zarate Psychiatrist Psychiatry 03/22/12 [facility] Mental Health Psychotherapist 08/04/17 [facility] Density Control Puncher 09/13/17 documented as of this encounter
--- OUTSIDE RECORDS SUMMARY | 2022-03-14 18:38 | XMS_ITS | Encounter Summary ---
:1970 [facility] Address [address] [place] [address] Care Team Providers Name Role Phone Gagandeep Michaud MD Primary Care Provider Reason for Visit Reason Comments Refill metoprolol succinate (TOPROL XL) 50 MG 24 hour release tablet [Pharmacy Med Name: Metoprolol Succinate E R 50 MG Tablet extended release 24 hr] Encounter Details Date Type Department Care Team Description 08/25/2021 Refill [facility] Gagandeep Michaud, Refil l (metoprolol Medicine MD succinate (TOPROL XL) [address] MG 24 hour release [place] [address] [place] [address] tablet [Pharmacy Med [phone] (Wo rk) Name: Metoprolol Succinate ER 50 [...] longer receiving care at [facility]; pt stated switched providers due to living in [place] now. Frontline: Route to Refill Wizard Admin Pool-PN (P [id number]) Shayy Haynes RN - 08/27/2021 2:22 PM CDT Further Assistance Needed on Refill from Print Support Specialist Patient is overdue for Office visit. An office visit is overdue (performed 15 months ago, required every 12 months). Last qualifying visit: 06/09/2020 (with GAGANDEEP MICHAUD) Next scheduled visit: None Please call patient to schedule a Office/Video Visit and document using .[employer]. After attemptingto schedule patient: Please route to: [...] MICHAUD) Next scheduled visit: None Powered by [facility] by [employer], Reference: [id number], 08/25/2021 9:39:07 AM CDT, Pool:MANUEL MOORE ([id number]) documented in this encounter Plan of Treatment Not on filedocumented as of this encounter Visit Diagnoses Diagnosis Essential hypertension (HRC) Unspecified essential hypertension documented in this encounter Care Teams Roll Forming Machine Set Up Mechanic Relationship Specialty Start Date End Date Gagandeep Michaud MD PCP - General 05/17/12 1415 [facility] [place] [address] Vane Zarate Psychiatrist Psychiatry 03/22/12 [facility] Psychotherapist 08/04/17 [facility] Card Feeder 09/13/17 documented as of this encounter
--- OUTSIDE RECORDS SUMMARY | 2022-03-14 18:38 | XMS_ITS | Encounter Summary ---
:1970 Author [facility] Address [address] [place] [address] Care Team Providers Name Role Phone Gagandeep Michaud MD Primary Care Provider Reason for Visit Reason Comments Refill metFORMIN (GLUCOPHAGE) 1000 MG tablet [Pharmacy Med Name: metFORMIN HCl 1000 MG Tablet]; lisinopril (ZEST RIL) 5 MG tablet [Pharmacy Med Name: Lisinopril 5 MG Tablet] Encounter Details Date Type Department Care Team Description 09/02/2020 Refill [place] Gagandeep Michaud, Refil l (metFORMIN Medicine MD (GLUCOPHAGE) [address] tablet [[place] [address] [place] [address] Name: metFORMIN HCl 1000 [phone] (Wo rk) MG Tablet]; lisinopril (ZESTRIL) 5 [...] MICHAUD) Next scheduled visit: None Powered by [facility] by Se[employer]ore, Reference: [id number], 09/02/2020 4:39:03 PM CDT, Jaxon:MANUEL MOORE ([id number]) documented in this encounter Plan of Treatment Not on filedocumented as of this encounter Visit Diagnoses Not on filedocumented in this encounter Care Teams Subsurface Augmentee Operator Relationship Specialty Start Date End Date Gagandeep Michaud MD PCP - General 05/17/12 1415 [facility] [place] [address] Vane Zarate Psychiatrist Psychiatry 03/22/12 [facility] Mental Health Psychotherapist 08/04/17 [facility] Ophthalmic Tech 09/13/17 documented as of this encounter
--- OUTSIDE RECORDS SUMMARY | 2022-03-14 18:38 | XMS_ITS | Encounter Summary ---
:1970 Author Organization [facility] Address [address] [address] Care Team Providers Name Role Phone Gagandeep Hinojosa MD Primary Care Provider Reason for Visit Reason Comments Patient Care Coordination Encounter Details Date Type Department Care Team Description 09/02/2020 Care Coord [facility] Deborah Rodrigues Patien t Care Phone Medicine TRAFFIC SUPERVISOR Coordination [facility] [place] [address] [place] [address] [phone] Social History Tobacco Use Types Packs/Day Years [...] as of this encounter Nursing Notes Deborah Rodrigues, TRAFFIC SUPERVISOR - 09/02/2020 2:43 PM CDT Rustam called [...] would not be coming up to the [facility] anytime soon, and that things in [place] are going well. Rustam denied any immediate concerns. Called Rustam back and left him a message, will wait to hear back from him. documented in this encounter Plan of Treatment Not on filedocumented as of this encounter Visit Diagnoses Diagnosis Health snf, active care coordinati on - Primary documented in this encounter Care Teams Piece Work Inspector Relationship Specialty Start Date End Date Gagandeep Hinojosa MD PCP - General 05/17/[address] [place] [address] [place] [address] Vane Zarate Psychiatrist Psychiatry 03/22/12 [facility] Mental Health Psychotherapist 08/04/17 [facility] Clinical Program Director 09/13/17 documented as of this encounter
--- OUTSIDE RECORDS SUMMARY | 2022-03-14 18:38 | XMS_ITS | Encounter Summary ---
:1970 Author Organization [facility] Address [address] [place] [address] Care Team Providers Name Role Phone Gagandeep Michaud MD Primary Care Provider Reason for Visit Reason Comments Refill Aspirin and Depakote Encounter Details Date Type Department Care Team Description 09/02/2020 Refill [facility] Gagandeep Michaud, Refil l (Aspirin and Medicine MD Shearer) 1415 [facility] . [address] [place] [address] [place], [place] [address] (Wo rk) Social History Tobacco Use Types [...] through Jose Danielina as he moved to [place] now. Will request refills through new provider. No other requests. Abbie Mitchell RN - 09/05/2020 5:13 AM CDT Further Assistance Needed on Refill from Nursing/Triage Janki listed as historical. Aspirin last ordered in [...] MICHAUD) Next scheduled visit: None Powered by [facility] by [employer], Reference: [id number], 09/02/2020 1:13:39 PM CDT, Pool:MANUEL MOORE ([id number]) divalproex (DEPAKOTE) [address] tablet [Pharmacy [...] WBC: 8.4 k/cmm on 11/28/2018 Powered by [employer] by Navmii, Reference: [id number], 09/02/2020 1:13:39 PM CDT, Pool:MANUEL OSCAR ([id number]) documented in this encounter Plan of Treatment Not on filedocumented as of this encounter Visit Diagnoses Not on filedocumented in this encounter Care Teams Mushroom Growth Media Mixer Relationship Specialty Start Date End Date Gagandeep Michaud MD PCP - General 05/17/[address] [place] [address] [place] Ger[place] [address] Vane Zarate Psychiatrist Psychiatry 03/22/12 [facility] Health Psychotherapist 08/04/17 [facility] Supervisor Real Estate Office 09/13/17 documented as of this encounter
--- OUTSIDE RECORDS SUMMARY | 2022-03-14 18:38 | XMS_ITS | Encounter Summary ---
:1970 Author Organization [facility] Address [address] [place] [address] Care Team Providers Name Role Phone Gagandeep Hinojosa MD Primary Care Provider Reason for Referral (Routine) - Closed Specialty Diagnoses / Procedures Referred By Contact Refer red To Contact Diagnoses Other chest pain Kailash Green DO Procedures Outreach Nuclear Study [address] [place] [address] Referral ID Status Reason Start Date Expiration Date Visits Requ ested Visits Authorized [id number] Closed 06/19/2020 09/18/2021 1 1 TRONIC MACHINE OPERATOR Encounter Details Date Type Department Care Team Description 06/19/2020 Hospital Encounter Heart & Vascular Other chest pain Center Nuclear (Primary Dx) Cardiology [address] [facility] [place] [address] Social History Tobacco Use Types Packs/Day Years [...] to scan blood 1 Each 0 020 Slide Forming Machine Operator (FREESTYLE sugars per TALAT 2 READER [facility]) operations scheduler DEVIIndications: instructions. Uncontrolled type 2 diabetes mellitus [...] TAKE ONE TABLET BY 60 Tablet 1 01/1 07/2020 09/03/2020 3 MG tablet MOUTH TWICE A DAY trihexyphenidyl TAKE 1 TO 2 TABLETS 0 11/21/2019 07/01/2020 (ARTANE) 2 MG tablet BY MOUTH ONCE DAILY NEEDED FOR EPS DISCONTINUE COGENTIN documented as of this encounter Progress Notes Kim Guadarrama - 06/19/2020 12:00 PM POST TRONIC MACHINE OPERATOR Encounter addended by: Kim Guadarrama on: 06/27/2020 7:07 AM Actions taken: Clinical Note Signed, Result filed TRONIC MACHINE OPERATOR documented in this encounter Procedure Notes Kim Guadarrama - 06/19/2020 12:00 PM CSTAssociated Order(s): OUTREACH NUCLEAR STUDY Results NM CARDIAC MPI STRESS TEST ( (Order [id number]) STRESS TEST PHARMACOLOGICAL ( (Order [id number]) Original Order Diagnosis: Chest pain [R07.9 (ICD-10-CM)] Chest pain, normal EKG Chest pain, normal EKG Reading Provider(s) Sonia Jara MD PACs images are not viewable in [employer] Link. See text report below. STRESS TEST PHARMACOLOGICAL Order: [id number] Status: Final result Visible to patient: No (not released) Next appt: None Dx: Chest pain Linked study orders: NM CARDIAC MPI STRESS TEST (Order: [id number]) Details Reading Physician Reading Date Result Priority Sonia Jara MD [phone] 06/19/2020 Routine Narrative & Impression STUDY: LEXISCAN NUCLEAR STRESS TEST, 06/19/2020. ORDERING DIAGNOSIS: Chest pain. This is a rest/stress single-isotope, single-photon emission computed tomography imaging performed using pharmacologic stress with gated SPECT imaging performed for the evaluation of known coronary artery disease in a 50-year-old male with risk factors of tobacco use, hyperlipidemia, hypertension, anddiabetes with past history of CT and percutaneous intervention who now presents with [...] patient. 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 documented in this encounter Results Outreach Nuclear Study (06/19/2020 12:00 PM POST TRONIC MACHINE OPERATOR) Narrative POCT - 06/19/2020 12:00 PM POST TRONIC MACHINE OPERATOR Kim Guadarrama ? 06/27/2020 ??7:06 AM Results NM CARDIAC MPI STRESS TEST ( [id number]) (Order [id number]) STRESS TEST PHARMACOLOGICAL (Accession A [id number]) (Order [id number]) Original Order Diagnosis: Chest pain [R0 7.9 (ICD-10-CM)] Chest pain, normal EKG Chest pain, normal EKG Reading Provider(s) Sonia Jara MD PACs images are not viewable in [employer] Link. See text report below. STRESS TEST PHARMACOLOGICAL Order: [id number] Status: Final result Visible to patient: No (not released) Next appt: None Dx: Chest pain Linked study orders: NM CARDIAC MPI STRE SS TEST (Order: [id number]) Details Reading Physician Reading Date Result Pr Sonia Gilbert MD [phone] 06/19/2020 Routine ?? Narrative & Impression ?? [...] nayana, and diabetes with past history of CT and percutaneous inte rvention who now presents [...] This result is not viewable by the psychiatrice nt. Patient Information Patient Name Timur Krishnamurthy ([id number]) Sex Male Procedure Note July - 06/19/2020 12:00 PM CST Results NM CARDIAC MPI STRESS TEST ( [id number]) (Order [id number]) STRESS TEST PHARMACOLOGICAL (Accession A [id number]) (Order [id number]) Original Order Diagnosis: Chest pain [R0 7.9 (ICD-10-CM)] Chest pain, normal EKG Chest pain, normal EKG Reading Provider(s) Sonia Jara MD PACs images are not viewable in [employer] Link. See text report below. STRESS TEST PHARMACOLOGICAL Order: [id number] Status: Final result Visible to patient: No (not released) Next appt: None Dx: Chest pain Linked study orders: NM CARDIAC MPI STRE SS TEST (Order: [id number]) Details Reading Physician Reading Date Result Pr Sonia Gilbert MD [phone] 06/19/2020 Routine Narrative & Impression STUDY: LEXISCAN NUCLEAR STRESS TEST, . ORDERING DIAGNOSIS: Chest pain. This is a rest/stress single-isotope, si ngle-photon emission computed tomography imaging performed using pharmacologic stress with gated SPECT imaging performed for the evaluation of known coronary artery disease in a 50-year-old male with risk factors of to bacco use, hyperlipidemia, hypertension, and diabetes with past history of CT and percutaneous intervention who now presents with [...] humphrey. Patient Information Patient Name Timur Krishnamurthy ([id number]) Sex Male Kailash Green DO PN CARDIAC SERVICES ORDERABL ES Performing Organization Address City/State/ZIP Code Phon e Number POCT documented in this encounter Visit Diagnoses Diagnosis Other chest pain - Primary documented in this encounter Care Teams Multi Disciplined Language Analyst Relationship Specialty Start Date End Date Gagandeep Hinojosa MD PCP - General 05/17/12 3608 [facility] [place] [address] Vane Zarate Psychiatrist Psychiatry 03/22/12 [facility] Psychotherapist 08/04/17 [facility] Dietician 09/13/17 documented as of this encounter
--- OUTSIDE RECORDS SUMMARY | 2022-03-14 18:38 | XMS_ITS | Encounter Summary ---
:1970 Author Organization [facility] Address [address] [place] [address] Care Team Providers Name Role Phone Gagandeep Hinojosa MD Primary Care Provider Encounter Details Date Type Department Care Team Description 08/18/2020 Orders Only Initial Department [facility] YADY JEFFRIES MD [place], [place] [address] Interface provider [phone] [place] [address] Social History Tobacco Use Types Packs/Day Years [...] on filedocumented in this encounter Care Teams Swatch Paster Relationship Specialty Start Date End Date Gagandeep Hinojosa MD PCP - General 05/17/12 [address] [place] [address] Vane Zarate Psychiatrist Psychiatry 03/22/12 [facility] Psychotherapist 08/04/17 [facility] CM Flexo Operator 09/13/17 documented as of this encounter
--- OUTSIDE RECORDS SUMMARY | 2022-03-14 18:38 | XMS_ITS | Encounter Summary ---
:1970 Author [facility] Address [address], [place] [address] Care Team Providers Name Role Phone Gagandeep Hinojosa MD Primary Care Provider Reason for Visit Reason Comments Patient Care Coordination Encounter Details Date Type Department Care Team Description 08/20/2020 Care Coord [facility] Deborah Rodrigues Patien t Care Phone Medicine PACKAGING SUPERVISOR Coordination [facility] [address] [place] [address] [phone] Social History Tobacco Use Types Packs/Day Years [...] documented as of this encounter Nursing Notes Deborha Rodrigues LICSW - 08/20/2020 2:18 PM CDT Quality Systems Technician - Phone Call Contact with: KARLEY Easton CM Reason for call: Care Coordination Discussion/actions: Called Rustam to check in, and he stated he is doing ???okay and is at a senior care in [place].Rustam said that he has been having a lot of anxiety, but is trying to get settled in down there. Rustam is establishing medical care in [place], but agreed to call if he needed anything. I talked with him about the free insulin that was shipped to the [facility], but he was unable to think about a solution on how to get the insulin. I told Rustam that he has a dermatology appointment next month, at the [facility], so he may be able to [...] he is going to make sure the senior care can transport him. Once Han confirms that [...] documented in this encounter Care Teams Rotary Lithographic Press Operator Relationship Specialty Start Date End Date Gagandeep Hinojosa MD PCP - General 05/17/12 [facility]5 [facility] [place] [address] Vane Zarate Psychiatrist Psychiatry 03/22/12 [facility] Psychotherapist 08/04/17 [facility] Flattening Press Operator 09/13/17 documented as of this encounter
--- OUTSIDE RECORDS SUMMARY | 2022-03-14 18:38 | XMS_ITS | Encounter Summary ---
:1970 Author Organization [facility] Address [address], [place] [address] Care Team Providers Name Role Phone Gagandeep Hinojosa MD Primary Care Provider Reason for Visit Reason Comments Patient Care Coordination Encounter Details Date Type Department Care Team Description 05/05/2021 Care Coord [facility] Deborah Rodrigues Patien t Care Phone Medicine [facility] Coordination [facility] [place] [address] [place] [address] [place] [address] [phone] Social History Tobacco Use Types Packs/Day Years [...] LICSW - 05/05/2021 1:25 PM CST Health [facility], Active Care Coordination resolved in patient???s Problem List. Reason: Patient moved out of the area Patient may be referred again in the future if needed. ER SETTER documented in this encounter Plan of Treatment Not on filedocumented as of this encounter Visit Diagnoses Diagnosis Health alf, active care coordinati on - Primary documented in this encounter Care Teams Surgical Lead Relationship Specialty Start Date End Date Gagandeep Hinojosa MD PCP - General 05/17/12 1415 [facility] [place] [address] Vane Zarate Psychiatrsamantha Psychiatry 03/22/12 [facility] Psychotherapist 08/04/17 [facility] Medical Education Coordinator 09/13/17 documented as of this encounter
--- OUTSIDE RECORDS SUMMARY | 2022-03-14 18:38 | XMS_ITS | Encounter Summary ---
:1970 Author Organization [facility] Address [address] [place] [address] Care Team Providers Name Role Phone Gagandeep Michaud MD Primary Care Provider Reason for Visit Reason Comments Refill NOVOFINE AUTOCOVER PEN NEEDL E 30G X 8 MM [Pharmacy Med Name: NovoFine Autocover Pen Needle 30G X 8 MM Miscellaneous] Encounter Details Date Type Department Care Team Description 09/28/2021 Refill [facility] Gagandeep Michaud, Refil l (NOVOFINE Medicine AUTOCOVER PEN NEEDLE 30G [address] X 8 MM [Pharmacy Med [place]igil [address] [place] [address] Name: NovoFine Autocover [phone] (Wo rk) Pen Needle 30G X 8 [...] no longer receiving care at [facility] PATIENT IS BEING SEEN AT [facility] [place]. Frontline: Route to Refill Wizard Admin Pool-PN (P [id number]) Alyssa Porter RN - 10/02/2021 9:16 AM CDT Further Assistance Needed on Refill from Water Sander Patient is overdue for Office visit. An [...] visit: None [facility] [employer] Embedded Refills, Reference: [id number], 09/28/2021 11:11:56 AM CDT, Pool: MANUEL REFILL ([id number]) documented in this encounter Plan of Treatment Not on filedocumented as of this encounter Visit Diagnoses Not on filedocumented in this encounter Care Teams Fire Department Marine Engineer Relationship Specialty Start Date End Date Gagandeep Michaud MD PCP - General 05/17/12 [facility]5 [place] [address] Vane Zarate Psychiatrist Psychiatry 03/22/12 [facility] Psychotherapist 08/04/17 [facility] Retail Sales Associate Seasonal 09/13/17 documented as of this encounter
--- OUTSIDE RECORDS SUMMARY | 2022-03-14 18:38 | XMS_ITS | Clinical Summary ---
:1970 Author Organization [facility] Address [address], [place] [address] Care Team Providers Name Role Phone Gagandeep [...] for each transition of care or referral. Xinguodu Allergies Active Allergy Reactions Severity Noted Date [...] scan blood 1 Each 0 12/04/2019 Active Assorter (FREESTYLE TALAT 2 sugars per bumper straightener READER SYSTM) instructions. DEVIIndications: Uncontrolled type 2 [...] 8 MM USE DIRECTED WITH 400 Each 3 2020 Active INSULIN PENS risperiDONE (RISPERDAL) 3 MG Take 1 Tablet by mouth 180 Tablet 0 09/04/2020 Active tablet two times a day. Active Problems Patient Care Coordination Note Formatting of this note might be differe nt from the original. Inker And Opaquer: ERLIN Salas [phone] Care coordination focus: T2DM, financial resources Living situation: lives with spouse Important notes: SSDI, significant insul in resistance, regularly reaches Medicare Coverage Gap and cannot afford insulin Problem Noted Date Non-proliferative diabetic retinopathy 05/02/2019 Hyponatremia 01/16/2018 Tinea versicolor 07/18/2015 Tobacco use disorder 10/26/2012 Anemia 05/02/2012 Overview: Anemia, unspecified Microalbuminuria 02/04/2012 [place], old 09/16/2011 History of PTCA 09/16/2011 Overview: [...] Bipolar I disorder 09/15/2005 Overview: LW Onset: [id number] ; Bipolar I Dis Resolved Problems Problem Noted Date Resolved Date Tobacco abuse 02/24/2016 12/18/2018 ACS (acute coronary syndrome) 10/25/2012 02/16/2017 Mass on back 05/02/2012 10/25/2012 Health assisted, active care coordination 03/22/2012 07/27/2018 Overview: Inker And Opaquer: JOSETTE Yip [phone] Care coordination focus: T2DM, financial resources Living situation: lives with spouse Important notes: SSDI, significant insul in resistance, uses Relion insulin, commonly reaches Medicare Cover age Gap See care plan under Chart Review > Misc Reports > AMB [facility] CARE PLAN REPORT Last Assessment & Plan: Inker And Opaquer: Lesly Rodrigues [facility] [phone] Care coordination focus: mental health Living situation: Lives with Important notes: case management star ting LFTs abnormal 02/02/2012 10/25/2012 S/P angioplasty with stent 05/26/2011 10/25/2012 Overview: Apr 2011 Plantar wart 05/26/2011 10/25/2012 Acute [place] 05/01/2011 02/01/2012 Hypertriglyceridemia 12/11/2010 10/25/2012 Overview: >5000 [...] Influenza IIV4 (Quadrivalent) 0.5mL 01/07/2020, 01/16/2018, 02/16/2017, (10800) 02/24/2016, 03/27/2015, 01/16/2014, 03/14/2013 Influenza, Unspecified Formulation [...] Comments Blood Pressure 132/88 06/09/2020 4:43 PM PLASTICS SCIENTIST Pulse 99 06/09/2020 4:43 PM PLASTICS SCIENTIST Temperature 38.2 ??C (100.8 ??F) 05/02/2019 11:31 AM PLASTICS SCIENTIST Respiratory Rate 16 03/07/2013 2:52 PM PLASTICS SCIENTIST Oxygen Saturation 97% 10/27/2012 3:52 PM CDT Inhaled Oxygen Concentration - - Weight 88.9 kg (196 lb) 06/09/2020 4:43 PM PLASTICS SCIENTIST Height 177.8 cm (5' 10) 12/04/2019 10:49 [...] 12/04/2019, 08/28/2019, Microalbumin 08/15/2017, Additional history exists Diabetes: Eye Exam 02/01/2021 02/02/2020 (Completed), 07/25/2017 (Completed), 06/28/2016 (Completed), Additional history exists Medicare Annual Wellness 07/04/2021 07/04/2020, 12/04/2019 Visit Influenza (#1) 2021 01/07/2020, 01/16/2018, 02/16/2017, Additional [...] Typ e / Group Dates MEDICARE MEDICARE [id number] 2009-Pres [facility] ent SENIOR SENIOR [id number] 2020-Pres [phone] [facility] ent 665 SERVICES SERVICES SERVICES [address] [place] [address] JACLYN [facility] [id number] 2020-Pres [address] Med icaid ent [id number] [place] CREATIVE ENGAGEMENT DIRECTOR [place] [address] Yessy, Personal/Family Self 1970 [address] ([address]) [address] [phone] [place], [place] ([place]) [address] Yessy Personal/Family Self 1970 [address] ([address] [place] [address] [facility] Task Messengerate Employer c/o [facility], Shiftboard Online Scheduling [address] [place] [address] Advance Directives Latest Code Status on File Code Status Date Activated Date Inactivated Comments Full Code 10/25/2012 7:32 PM 10/27/2012 6:54 PM Code Status History Code Status Date Activated Date Inactivated Comments Full Code 05/14/2011 11:08 AM 05/14/2011 11:30 PM Full Code 04/30/2011 4:27 AM 05/01/2011 12:21 PM Care Teams Refinery Operator Helper Cracking Unit Relationship Specialty Start Date End Date Gagandeep Hinojosa MD PCP - General 05/17/12 [address] [place] [address] Vane Zarate Psychiatrist Psychiatry 03/22/12 [facility] Mental Health Psychotherapist 08/04/17 [facility] Senior Ui Web Developer 09/13/17
--- OUTSIDE RECORDS SUMMARY | 2022-03-14 18:38 | XMS_ITS | Encounter Summary ---
:1970 Author Organization [facility] Address [address] [place] [address] Care Team Providers Name Role Phone Gagandeep Michaud MD Primary Care Provider Reason for Visit Reason Comments Refill amLODIPine (NORVASC) 5 MG ta blet [Pharmacy Med Name: amLODIPine Besylate 5 MG Tablet] Encounter Details Date Type Department Care Team Description 09/02/2020 Refill Gagandeep Storm, Refil l (amLODIPine Medicine (NORVASC) 5 MG tablet [address] [Pharmacy Med Name: [place] [address] [place] [address] amLODIPine Besylate 5 MG [phone] (Wo rk) Tablet]) Social History Tobacco Use [...] MICHAUD) Next scheduled visit: None Powered by [employer] by [employer], Reference: [id number], 09/02/2020 1:07:36 PM CDT, Pool:MANUEL REFILL ([id number]) documented in this encounter Plan of Treatment Not on filedocumented as of this encounter Visit Diagnoses Not on filedocumented in this encounter Care Teams Security Attendant Relationship Specialty Start Date End Date Gagandeep Michaud MD PCP - General 05/17/12 1415 [facility] [place] [address] Vane Zarate Psychiatrist Psychiatry 03/22/12 [facility] Mental Health Psychotherapist 08/04/17 [facility] Labor Training Manager 09/13/17 documented as of this encounter
--- OUTSIDE RECORDS SUMMARY | 2022-03-14 18:38 | XMS_ITS | Encounter Summary ---
:1970 Author Organization [facility] Address [address] [place] [address] Care Team Providers Name Role Phone Gagandeep Hinojosa MD Primary Care Provider Reason for Visit Reason Comments QUESTIONS, GENERAL Encounter Details Date Type Department Care Team Description 07/16/2020 Telephone [facility] Gagandeep Hinojosa, QUESTIONS, GENERAL [address] [place] [address] 1415 [facility] [phone] [place] [address] (Wo rk) Social History [...] Rodrigues LICSW - 07/17/2020 3:51 PM CDT Email Specialist - Phone Call Contact with: Rustam Reason for call: Care Coordination Discussion/actions: Received a phone call back from Rustam. We discussed his diabetic supplies and hewill get them when he moves to permanent housing. Rustam is currently in an IRTS and has been asked to leave. Spoke with his CMHan, who confirmed Rustam will be moving to [facility] Living in [place]. Once Rustam is settled there, we will [...] [place]. [place] [phone] if he calls the clinic. Corinne Villafuerte - 07/16/2020 1:08 PM CDT Miscellaneous Questions & FYI's - Question/Concern (DO NOT use for billing and coding concerns see BEST care reporting system) What is your question or concern? Pt calling regarding diabetic supplies that was shipped to in [place]. See encounter from healthcare management on 06/30/2020. States he has a stable address now. The address is: [address] [place] Rustam Mendozaathers [address] [place] [address] Phone number for Sarai powell [phone]. Would like a call back when it [...] filedocumented in this encounter Care Teams Child Daycare Worker Relationship Specialty Start Date End Date Gagandeep Hinojosa MD PCP - General 05/17/12 [address] [place] [address] Vane Zarate Psychiatrist Psychiatry 03/22/12 [facility] Psychotherapist 08/04/17 [facility] CM Research Leader 09/13/17 documented as of this encounter
--- OUTSIDE RECORDS SUMMARY | 2022-03-14 18:38 | XMS_ITS | Encounter Summary ---
:1970 Author Organization [facility] Address [address] [address] Care Team Providers Name Role Phone Gagandeep Hinojosa MD Primary Care Provider Reason for Visit Reason Comments CANCEL APPOINTMENT Encounter Details Date Type Department Care Team Description 06/12/2020 Care Coord Phone Judy Luke R N CANCEL APPOINTMENT [place] [phone] [place] [address] [place] [address] [phone] Social History Tobacco Use Types Packs/Day Years [...] Pittman RN - 06/12/2020 9:38 AM CST Web Press Jogger - Phone Call Contact with: Rustam Reason [...] Rustam is working with his Mental Health Tailer In to find new housing. Rustam states he has not received his shipment from [employer], but notes he does not need any insulin at this time. He was given a significant supply of insulin following his recent stay at the crisis center. Shared plan: Canceled appt for today and will reschedule at a later date. Rustam verbalized understanding and agreed with plan of care and follow up. UROLOGIST documented in this encounter Plan of Treatment Not on filedocumented as of this encounter Visit Diagnoses Not on filedocumented in this encounter Care Teams Automotive Service Director Relationship Specialty Start Date End Date Gagandeep Hinojosa MD PCP - General 05/17/[address] [place] [address] Vane Zarate Psychiatrist Psychiatry 03/22/12 [facility] Mental Health Psychotherapist 08/04/17 [facility] Tailer In 09/13/17 documented as of this encounter
--- OUTSIDE RECORDS SUMMARY | 2022-03-14 18:38 | XMS_ITS | Encounter Summary ---
:1970 Author Organization [facility] Address [address] [place] [address] Care Team Providers Name Role Phone Gagandeep Hinojosa MD Primary Care Provider Reason for Visit Reason Comments Post Hospital Discharge Follow Up ACO Post DC Encounter Details Date Type Department Care Team Description 06/20/2020 Telephone [facility] Gagandeep Hinojosa, Post Hospital Discharge Medicine MD Follow Up (ACO Post DC) 1415 [facility] . [address] [place] [address] [place] [address] [phone] (Wo rk) Social History Tobacco Use Types [...] for details. Rustam has been working with [facility] Care Coordination. Pt shared that he has concerns regarding housing, he will no longer have as of July 22, 2020. He has tried to get into IR housing but this has not worked out. [...] treat chronic groin growths with liquid nitrogen. Dinkey Mechanic will notify Care Coordination and PCP of Pt's questions. STERED PHLEBOTOMIST PART TIME documented in this encounter Plan of Treatment Not on filedocumented as of this encounter Visit Diagnoses Not on filedocumented in this encounter Care Teams Traffic Assistant Relationship Specialty Start Date End Date Gagandeep Hinojosa MD PCP - General 05/17/12 [facility]5 [facility] [place] [address] Vane Zarate Psychiatrsamantha Psychiatry 03/22/12 [facility] Psychotherapist 08/04/17 [facility] Last Puller 09/13/17 documented as of this encounter
--- OUTSIDE RECORDS SUMMARY | 2022-03-14 18:38 | XMS_ITS | Encounter Summary ---
:1970 Author Organization [facility] Address [address] [place] [address] Care Team Providers Name Role Phone Gagandeep Michaud MD Primary Care Provider Reason for Visit Reason Comments Refill Lisinopril and Metformin Encounter Details Date Type Department Care Team Description 09/02/2020 Refill [facility] Gagandeep Michaud, Refil l (Lisinopril and Medicine Metformin) 1415 [facility] . [address] [place] [address] [place] [address] [phone] (Wo rk) Social History Tobacco Use Types [...] through Jose Danielina as he moved to [place] now. Will request refills through new provider. No other requests. Interface, Out Surescripts Prov Query - 09/05/2020 5:10 AM CDT The patient chart could not be locked at 09/05/2020 5:10 AM by Referron in order to process this refill request. Please try re-routing to attempt to retry processing through [employer]. Interface, Out Surescripts Prov Query - 09/05/2020 5:09 AM CDT The patient chart could not be locked at 09/05/2020 5:09 AM by Referron in order to process this refill request. Please try re-routing to attempt to retry processing through Referron. Abbie Mitchell RN - 09/05/2020 5:09 AM [...] K: 5 mEq/L on 11/28/2018 Powered by [employer] by [employer], Reference: [id number], 09/02/2020 1:16:41 PM CDT, Pool:MANUEL MOORE ([id number]) metFORMIN (GLUCOPHAGE) 1000 MG tablet [Pharmacy Med [...] HBA1C: 11.3 % on 12/04/2019 Powered by [employer], Reference: [id number], 09/02/2020 1:16:41 PM CDT, Jaxon:MANUEL MOORE ([id number]) documented in this encounter Plan of Treatment Not on filedocumented as of this encounter Visit Diagnoses Not on filedocumented in this encounter Care Teams Fashion Coordinator Relationship Specialty Start Date End Date Gagandeep Michaud MD PCP - General 05/17/12 [address] [place] [address] Vane Zarate Psychiatrist Psychiatry 03/22/12 [facility] Psychotherapist 08/04/17 [facility] Elevator Installer Apprentice 09/13/17 documented as of this encounter
--- OUTSIDE RECORDS SUMMARY | 2022-03-14 18:38 | XMS_ITS | Encounter Summary ---
:1970 Author Organization [facility] Address [address] [place] [address] Care Team Providers Name Role Phone Gagandeep Michaud MD Primary Care Provider Reason for Visit Reason Comments Refill metFORMIN (GLUCOPHAGE) 1000 MG tablet [Pharmacy Med Name: metFORMIN HCl 1000 MG Tablet]; lisinopril (ZEST RIL) 5 MG tablet [Pharmacy Med Name: Lisinopril 5 MG Tablet] Encounter Details Date Type Department Care Team Description 09/02/2020 Refill [place] [facility] Gagandeep Michaud, Refil l (metFORMIN Medicine (GLUCOPHAGE) [address] tablet [[place] [address] [place] [address] Name: metFORMIN HCl 1000 [phone] (Wo rk) MG Tablet]; lisinopril (ZESTRIL) 5 [...] Nursing Notes Marco Antonio Malcolm MA - 09/05/2020 9:19 AM CDT This encounter [...] TAKE 1 TABLET BY MOUTH TWICE DAILY Jose M Plaza RN - 09/03/2020 12:43 [...] MICHAUD) Next scheduled visit: None Powered by [facility] by [employer], Reference: [id number], 09/02/2020 1:17:40 PM CDT, Pool:MANUEL REFILL ([id number]) documented in this encounter Plan of Treatment Not on filedocumented as of this encounter Visit Diagnoses Not on filedocumented in this encounter Care Teams Rehab Aid Relationship Specialty Start Date End Date Gagandeep Michaud MD PCP - General 05/17/12 [facility]5 [facility] [place] [address] Vane Zarate Psychiatrist Psychiatry 03/22/12 [facility] Mental [facility] Psychotherapist 08/04/17 [facility] Agricultural Extension Educator 09/13/17 documented as of this encounter
--- OUTSIDE RECORDS SUMMARY | 2022-03-14 18:39 | XMS_ITS | Encounter Summary ---
:1970 Author Organization [facility] Address [address] [address] Care Team Providers Name Role Phone Gagandeep Hinojosa MD Primary Care Provider Reason for Referral Consult/Transfer Care (Routine) - Closed Specialty Diagnoses / Procedures Referred By Contact Refer red To Contact Diagnoses Uncontrolled type 2 diabetes mellitus with hyperglycemia (HRC) Gagandeep Hinojosa MD [address] [facility] [address] Referral ID Status Reason Start Date Expiration Date Visits Requ ested Visits Authorized [id number] Closed 01/22/2020 07/20/2020 1 1 Scheduling Instructions [...] Dx); Romario Rubio MD Warts, genital; 1415 [facility] . [facility]5 [facility] Uncontrolled type 2 diabetes mellitus with hyperglycemia (HRC) [place] [address] [address] [phone] [place] [phone] Social History Tobacco Use Types Packs/Day Years [...] DESTRUCT BENIGN SKIN LESIONS UP TO 14 [address] 3. Uncontrolled type 2 diabetes mellitus with hyperglycemia ([facility]) E11.65 Optometry Consult-Adult/Peds CHIEF COMPLAINT: Chief Complaint Patient presents with ??? DEPRESSION ??? ANXIETY ??? Growth on penis SUBJECTIVE : Timur Krishnamurthy is an 50 y.o. male who presents for numerous concerns. He is having some increased anxiety because of ongoing divorce process difficulty finding housing. Housing difficulties are mainly financial rather than availability. He is working with his manager social and his county worker for available facilities. [...] start a video chat service with the [facility] psychiatrists and psychologists, but this is not [...] Diagnosis Date Noted ??? Non-proliferative diabetic retinopathy (C) 05/02/2019 ??? Hyponatremia 01/16/2018 ??? Tinea versicolor 07/18/2015 ??? Tobacco use disorder ([facility]) 10/26/2012 ??? Anemia 05/02/2012 Overview Note: Anemia, unspecified ??? Microalbuminuria 02/04/2012 ??? [place], old ([facility]) 09/16/2011 ??? History of PTCA 09/16/2011 Overview Note: History of PTCA 04/2011 BMS RCA ??? Obesity, Class I, BMI 30-34.9 ([facility]) 09/16/2011 Overview Note: Body mass index is 31.16 kg/(m^2). ??? Hyperlipidemia with target LDL less than 70 06/08/2011 Overview Note: Hyperlipidemia LDL goal < 70 ??? ASHD (arteriosclerotic heart disease) 05/04/2011 ??? Erectile dysfunction 01/22/2011 Overview Note: side effect Risperdal ??? Type 2 diabetes mellitus, uncontrolled ([facility]) 12/11/2010 Overview Note: Type II or unspecified type diabetes mellitus without mention of complication, uncontrolled ([facility]) ??? Dermatophytosis of body 09/04/2010 Class: Historical Overview Note: Tinea Corporis ??? Coronary atherosclerosis 12/22/2009 Overview Note: LW Modifier: mod RCA, negative nuclear stress test ; CAD ??? Nonspecific abnormal results of liver function study 12/22/2009 Overview Note: Liver Function Tests Abnormal ??? Bipolar I disorder ([facility]) 09/15/2005 Overview Note: LW Onset: [id number] ; Bipolar I Dis FAMILY HISTORY OR [...] 200 Strip 3 ??? Continuous Blood Gluc Leather Novelty Parts Cutter (HackerTarget.com LLCSTYLE TALAT 2 READER SYSTFashion For Home) ADÁN Use to scan blood sugars per power wood sawyer instructions. 1 Each 0 ??? Continuous Blood Gluc Sensor (HackerTarget.com LLCSTYLE ATLAT 14 DAY SENSOR) [facility] Use as directed. Change every 14 days. [...] 1 Tablet by mouth. 01/16/2018: [facility] Sig: Take 1 tablet [...] controlled, fluent Affect: Very neutral Thought content: [place], fixated on finding housing. Thought process: Logical, analytical, but quite fixated on housing Perception: Seems to be appropriate Intellectual capability: Below average Insight: Below average LABS : ASSESSMENT /PLAN ICD-10-CM 1. Anxiety F41.9 busPIRone (BUSPAR) 10 MG tablet 2. Warts, genital A63.0 DESTRUCT BENIGN SKIN LESIONS UP TO 14 [address] 3. Uncontrolled type 2 diabetes mellitus with [...] (HRC) documented in this encounter Care Teams Dance Professor Relationship Specialty Start Date End Date Gagandeep Hinojosa MD PCP - General 05/17/[address] [place] [address] Vane Zarate Psychiatrist Psychiatry 03/22/12 [facility] Mental Health Psychotherapist 08/04/17 [facility] Landscape Crew Leader 09/13/17 documented as of this encounter
--- OUTSIDE RECORDS SUMMARY | 2022-03-14 18:39 | XMS_ITS | Encounter Summary ---
:1970 Author Organization [facility] Address [address] [address] Care Team Providers Name Role Phone Gagandeep Hinojosa MD Primary Care Provider Reason for Visit Reason Comments FOLLOW-UP,DIABETES Encounter Details Date Type Department Care Team Description 12/19/2019 Care Coord Office Judy Luke RN FOLLOW-UP,DIABETES Visit [address] [place] [address] [place] [phone] [address] Social History Tobacco Use Types Packs/Day Years [...] RN - 12/19/2019 11:00 AM CDT RN Old Testament Professor Visit Pt: Timur Krishnamurthy Referred by: Gagandeep [...] units per 50 points >200. I provided aFreestyle Bharath at Rustam's last visit, which he [...] on filedocumented in this encounter Care Teams Dialysis Biomed Technician Relationship Specialty Start Date End Date Gagandeep Hinojosa MD PCP - General 05/17/12 [facility]2 [facility] [place] [address] Vane Zarate Psychiatrist Psychiatry 03/22/12 [facility] Psychotherapist 08/04/17 [facility] Crime Prevention Worker 09/13/17 documented as of this encounter
--- OUTSIDE RECORDS SUMMARY | 2022-03-14 18:39 | XMS_ITS | Encounter Summary ---
:1970 Author Organization [facility] Address [address] [place] [address] Care Team Providers Name Role Phone Gagandeep Hinojosa MD Primary Care Provider Reason for Visit Reason Comments NATHAN HE Encounter Details Date Type Department Care Team Description 01/07/2020 Office Visit [facility] Gagandeep Hinojosa g enital Medicine MD Joanne (Primary Dx) 14[address] [facility] . [address] [place] [address] [address] [phone] [place], [place] [address] Social History Tobacco Use Types [...] acuminatum documented in this encounter Care Teams Research Agricultural Engineer Relationship Specialty Start Date End Date Gagandeep Hinojosa MD PCP - General 05/17/12 [facility]5 [place] [address] Vane Zarate Psychiatrist Psychiatry 03/22/12 [facility] Psychotherapist 08/04/17 [facility] Front Office Agent 09/13/17 documented as of this encounter
--- OUTSIDE RECORDS SUMMARY | 2022-03-14 18:39 | XMS_ITS | Encounter Summary ---
:1970 Author Organization [facility] Address [address], [place] [address] Care Team Providers Name Role Phone Gagandeep Hinojosa MD Primary Care Provider Reason for Visit Reason Comments FOLLOW-UP,DIABETES Encounter Details Date Type Department Care Team Description 10/30/2019 Care Coord Office Judy Luke RN FOLLOW-UP,DIABETES Visit [address] [place] [address] [place] [phone] [address] Social History Tobacco Use Types Packs/Day Years [...] RN - 10/30/2019 11:00 AM CDT RN Choir Teacher Visit Pt: Timurcole Krishnamurthy Referred by: Gagandeep [...] identified: Finance and Emotional. BG Goals: Health Assisted Lab Goal <7 [...] on filedocumented in this encounter Care Teams Extracorporeal Circulation Specialist Relationship Specialty Start Date End Date Gagandeep Hinojosa MD PCP - General 05/17/12 [facility] [facility] [address] Vane Zarate Psychiatrist Psychiatry 03/22/12 [facility] Mental Health Psychotherapist 08/04/17 [facility] Electronic Scale Assembler And Tester 09/13/17 documented as of this encounter
--- OUTSIDE RECORDS SUMMARY | 2022-03-14 18:39 | XMS_ITS | Encounter Summary ---
:1970 Author Organization [employer] Address [address] [place] [address] Care Team Providers Name Role Phone Gagandeep Michaud MD Primary Care Provider Reason for Visit Reason Onset Date Comments Refill 01/09/2020 metFORMIN (GLUCOPHAG E) 500 MG tablet Encounter Details Date Type Department Care Team Description 01/09/2020 Refill [facility] Gagandeep Michaud, Refil l (metFORMIN Medicine MD (GLUCOPHAGE) 500 [address] tablet) [place] [address] [place], [place] [address] (Wo rk) Social History Tobacco Use Types [...] times a day with meals. Interface, Out DBA Group Query - 01/09/2020 4:06 PM CDT metFORMIN [...] HBA1C: 11.3 % on 12/04/2019 Powered by [employer], Reference: [id number], 01/09/2020 4:06:27 PM CDT, Pool: MANUEL MOORE ([id number]) documented in this encounter Plan of Treatment Not on filedocumented as of this encounter Visit Diagnoses Not on filedocumented in this encounter Care Teams Sales And Marketing Manager Relationship Specialty Start Date End Date Gagandeep Michaud MD PCP - General 05/17/12 5676 [facility] [place] [address] Vane Zarate Psychiatrist Psychiatry 03/22/12 [facility] Mental Health Psychotherapist 08/04/17 [facility] Belling Machine Operator 09/13/17 documented as of this encounter
--- OUTSIDE RECORDS SUMMARY | 2022-03-14 18:39 | XMS_ITS | Encounter Summary ---
:1970 Author Organization [facility] Address [address] [place] [address] Care Team Providers Name Role Phone Gagandeep Michaud MD Primary Care Provider Reason for Visit Reason Onset Date Comments Refill 05/24/2020 insulin pen needle ( BD ULTRAFINE JANET) 32G X 4 MM Encounter Details Date Type Department Care Team Description 05/24/2020 Refill Gagandeep Storm, Refil l (insulin pen Medicine MD needle (BD ULTRAFINE [address] JANET) 32G X 4 MM) [place] [address] [place] [address] [phone] (Wo rk) Social History Tobacco Use Types [...] Provider: GAGANDEEP MICHAUD Ordering User: ABBIE MITCHELL ARATIVE SOCIOLOGY PROFESSOR Interface, Out BiggiFi Prov Query - 05/24/2020 11:47 AM CST insulin [...] found) Next scheduled visit: None Powered by D[employer]le Mobile, Reference: [id number], 05/24/2020 11:47:11 AM COMPARATIVE SOCIOLOGY PROFESSOR, Pool: MANUEL REFILL ([id number]) ARATIVE SOCIOLOGY PROFESSOR documented in this encounter Plan of Treatment Not on filedocumented as of this encounter Visit Diagnoses Diagnosis Uncontrolled type 2 diabetes mellitus wi th microalbuminuria, with long-term current use of insulin - Primary documented in this encounter Care Teams Taper Machine Relationship Specialty Start Date End Date Gagandeep Michaud MD PCP - General 05/17/[address] [facility] [place] [address] Vane Zarate Psychiatrist Psychiatry 03/22/12 [facility] Mental Health Psychotherapist 08/04/17 [facility] Field Broomer 09/13/17 documented as of this encounter
--- OUTSIDE RECORDS SUMMARY | 2022-03-14 18:39 | XMS_ITS | Encounter Summary ---
:1970 Author Organization [facility] Address [address], [place] [address] Care Team Providers Name Role Phone Gagandeep Hinojosa MD Primary Care Provider Reason for Visit Reason Comments FOLLOW-UP,DIABETES Encounter Details Date Type Department Care Team Description 12/04/2019 Care Coord Office Judy Luke RN FOLLOW-UP,DIABETES Visit [address] [place] [address] [place] [phone] [address] Social History Tobacco Use Types Packs/Day Years [...] Pittman RN - 12/04/2019 10:00 AM CDT The Totus GroupSTYLE BHARATH CONTINUOUS GLUCOSE SENSOR (CGM) INITIAL SET UP AND INSERTION Instructed patient/family in the use of the Bahrath cgm includin. Sensor connection and insertion. 2. [...] to review sensor data, glucose patterns. RN Director Of Field Coordination Visit Pt: Timur Krishnamurthy Referred by: [...] Rustam is over income for Medical Assistance, [employer], as well as, pharmaceutical assistance. Blood Glucose [...] Primary documented in this encounter Care Teams Chinese Herbalist Relationship Specialty Start Date End Date Gagandeep Hinojosa MD PCP - General 05/17/12 [address] [place] [address] Vane Zarate Psychiatrsamantha Psychiatry 03/22/12 [facility] Psychotherapist 08/04/17 [facility] Government Affairs Manager 09/13/17 documented as of this encounter
--- OUTSIDE RECORDS SUMMARY | 2022-03-14 18:39 | XMS_ITS | Encounter Summary ---
:1970 Author Organization [facility] Address [address] [place] [address] Care Team Providers Name Role Phone Gagandeep Hinojosa MD Primary Care Provider Reason for Visit Reason Onset Date Comments Follow-up Phone Visit 01/30/2020 Encounter Details Date Type Department Care Team Description 01/30/2020 Telemedicine [facility] Gagandeep Hinojosa Anxiety (Primary Dx) Romario Rubio MD [address] [facility] [address] [place] [address] Ave [phone] [place], [place] [address] Social History Tobacco Use Types [...] unspecified documented in this encounter Care Teams Java Websphere Developer Relationship Specialty Start Date End Date Gagandeep Hinojosa MD PCP - General 05/17/12 [facility] [place] [address] Vane Zarate Psychiatrist Psychiatry 03/22/12 [facility] Psychotherapist 08/04/17 [facility] Livestock Judging Coach 09/13/17 documented as of this encounter
--- OUTSIDE RECORDS SUMMARY | 2022-03-14 18:39 | XMS_ITS | Encounter Summary ---
:1970 Author Organization [facility] Address [address] [place] [address] Care Team Providers Name Role Phone Gagandeep Hinojosa MD Primary Care Provider Reason for Visit Reason Comments QUESTIONS, GENERAL Encounter Details Date Type Department Care Team Description 05/10/2020 Telephone [facility] Gagandeep Hinojosa, QUESTIONS, GENERAL [address] [place] [address] [place] [address] (Wo rk) Social History Tobacco [...] with pt. Requesting phone number for [place] as he currently sees psychiatrist with [place] . Provided pt with number as requested. ROL SYSTEMS ENGINEER documented in this encounter Plan of Treatment Not on filedocumented as of this encounter Visit Diagnoses Not on filedocumented in this encounter Care Teams Sheet Metal Smith Relationship Specialty Start Date End Date Gagandeep Hinojosa MD PCP - General 05/17/12 1415 [facility] [place] [address] Vane Zarate Psychiatrist Psychiatry 03/22/12 [facility] Mental Health Psychotherapist 08/04/17 [facility] J2Ee Consultant 09/13/17 documented as of this encounter
--- OUTSIDE RECORDS SUMMARY | 2022-03-14 18:39 | XMS_ITS | Encounter Summary ---
:1970 Author Organization [facility] Address [address] [address] Care Team Providers Name Role Phone Gagandeep Hinojosa MD Primary Care Provider Encounter Details Date Type Department Care Team Description 04/10/[address] [place], Drive-Up Contact with or [address] [place] [address] disease [phone] Social History Tobacco Use Types Packs/Day Years [...] with or Results for this CORONAVIRUS AM FISCAL SERVICES DIRECTOR exposure to viral procedure are in disease the results section. documented in this encounter Results Asymptomatic - 2019 Novel Coronavirus (COVID-19) (04/10/2020 10:29 AM FISCAL SERVICES DIRECTOR) [facility] Method Time Signature SARS-CoV-2 by Not Detected 04/11/2020 [facility] PCR 11:15 PM FISCAL SERVICES DIRECTOR LABORATORIES Comment: INTERPRETIVE INFORMATION: SARS-CoV-2 (CO VID-19) [...] complia nce with this authorization, please visit [email or web address] for more information and to access [...] collection, transport, storage, and handling. Performed by [employer], [address] [place] [address] [email or web address], Barbara Mckeon MD, La b. Director SARS Cov-2 Source Nares, left and 04/11/2020 11:15 PM FISCAL SERVICES DIRECTOR [facility] right Specimen Anatomical Collection Method Collection Time Receive d Time (Source) Location / / Volume Laterality Swab (Source Non-blood 04/10/2020 10:29 04/10/2020 Required) Collection / AM FISCAL SERVICES DIRECTOR 11:56 AM FISCAL SERVICES DIRECTOR Unknown Alhaji Egan MD LAB_1 Performing Organization Address City/State/ZIP Code Phon e Number [facility] [address] [place], [place] [id number] documented in this encounter Visit Diagnoses Diagnosis Contact with or exposure to viral diseas e Contact with or exposure to other viral diseases documented in this encounter Care Teams Scow Hand Relationship Specialty Start Date End Date Gagandeep Hinojosa MD PCP - General 05/17/12 2015 [facility] [place] [address] Vane Zarate Psychiatrsamantha Psychiatry 03/22/12 [facility] Psychotherapist 08/04/17 [facility] CM [place] Performer 09/13/17 documented as of this encounter
--- OUTSIDE RECORDS SUMMARY | 2022-03-14 18:39 | XMS_ITS | Encounter Summary ---
:1970 Author Organization [employer] Address [address] [place] [address] Care Team Providers Name Role Phone Gagandeep Michaud MD Primary Care Provider Reason for Visit Reason Comments Refill Insulin Syringe-Needle U-100 (INSULIN SYRINGE 31G X 5/16) 31G X 5/16 1 ML Encounter Details Date Type Department Care Team Description 06/05/2020 Refill [facility] Gagandeep Michaud, Refil l (Insulin Medicine Syringe-Needle U-[address] (INSULIN SYRINGE [address] [address] [place] [address] 5/16) 31G X 5/16 1 ML) [phone] (Wo rk) Social History Tobacco Use Types [...] prescriptions requested or ordered in this encounter UNT SUPPORT SPECIALIST Interface, Out [employer] Prov Query - 06/05/2020 10:10 AM CST [...] found) Next scheduled visit: None Powered by [employer], Reference: [id number], 06/05/2020 10:10:25 AM ELKIN, Pool: PN REFILL WIZARD ADMIN ([id number]) Electronically signed by Interface, Out [email or web address] Prov Query at 06/09/2020 10:38 AM Herlinda Springer - 06/05/2020 10:10 AM CST [...] refills) Please route to: Refill Pool (P [id number]) [facility] FP Pool Pipestem Patients ONLY (P [id number]) [facility] PEDSS Dr. Laguerre ONLY (P [id number]) UNT SUPPORT SPECIALIST documented in this encounter Plan of Treatment Not on filedocumented as of this encounter Visit Diagnoses Not on filedocumented in this encounter Care Teams Picker Operator Relationship Specialty Start Date End Date Gagandeep Michaud MD PCP - General 05/17/12 [facility]5 [place] [address] Vane Zarate Psychiatrist Psychiatry 03/22/12 [facility] Psychotherapist 08/04/17 [facility] Complaint Evaluation Supervisor 09/13/17 documented as of this encounter
--- OUTSIDE RECORDS SUMMARY | 2022-03-14 18:39 | XMS_ITS | Encounter Summary ---
:1970 Author Organization [facility] Address [address], [place] [address] Care Team Providers Name Role Phone Gagandeep Hinojosa MD Primary Care Provider Reason for Referral Consult/Transfer Care (Routine) - Closed Specialty Diagnoses / Procedures Referred By Contact Refer red To Contact Diagnoses Uncontrolled type 2 diabetes mellitus with hyperglycemia (HRC) Gagandeep Hinojosa MD 1415 [facility] [place] [address] Referral ID Status Reason Start Date Expiration Date Visits Requ ested Visits Authorized [id number] Closed 12/04/2019 03/04/2021 1 1 Scheduling Instructions Your provider has recommended an appoint ment with [facility]. You may call [phone] to schedule your appoi ntment. Reason for Visit Reason Comments Medicare Annual Wellness Diabetes Growth on penis, x2 months Encounter Details Date Type Department Care Team Description 12/04/2019 Office Visit Gagandeep Storm for Medicare annual wellness exam (Primary Dx); Romario Rubio MD Uncontrolled type 2 diabetes mellitus wi th hyperglycemia (HRC); [address] 1415 [facility] Essential hypertension; [place] [address] Avelvira Warts, genital; [phone] [place] Tinea versicolo r [id number] Social History Tobacco Use Types Packs/Day Years [...] DESTRUCT BENIGN SKIN LESIONS UP TO 14 19205 Repeat treatment in 3 weeks Tinea versicolor [...] 1 Tablet by mouth. 01/16/2018: [facility] Received Sig: Take 1 tablet by [...] DESTRUCT BENIGN SKIN LESIONS UP TO 14 [address]489 5. Tinea versicolor B36.0 terbinafine (LAMISIL) 250 [...] versicolor documented in this encounter Care Teams Shipping Weigher Relationship Specialty Start Date End Date Gagandeep Hinojosa MD PCP - General 05/17/12 [facility] [place] [address] Vane Zarate Psychiatrist Psychiatry 03/22/12 [facility] Psychotherapist 08/04/17 [facility] Director Of District Office 09/13/17 documented as of this encounter
--- OUTSIDE RECORDS SUMMARY | 2022-03-14 18:39 | XMS_ITS | Encounter Summary ---
:1970 Author Organization [employer] Address [address], [place] [address] Care Team Providers Name Role Phone Gagandeep Michaud MD Primary Care Provider Reason for Visit Reason Onset Date Comments Refill Refill 05/10/2020 Encounter Details Date Type Department Care Team Description 05/08/2020 Refill [facility] Gagandeep Michaud MD Refill; Refill 1415 [facility] . [address] [place] [address] [place], [place] [address] (Wo rk) Social History Tobacco Use Types [...] Tablets by mouth two times a day. PROTECTION EQUIPMENT TECHNICIAN Alyssa Porter RN - 05/09/2020 11:52 AM [...] TWO TABLETS BY MOUTH TWICE A DAY PROTECTION EQUIPMENT TECHNICIAN Interface, Out Surescripts Prov Query - 05/08/2020 [...] WBC: 8.4 k/cmm on 11/28/2018 Powered by [employer], Reference: [id number], 05/08/2020 12:39:24 PM FIRE PROTECTION EQUIPMENT TECHNICIAN, Pool: MANUEL MOORE ([id number]) PROTECTION EQUIPMENT TECHNICIAN documented in this encounter Plan of Treatment Not on filedocumented as of this encounter Visit Diagnoses Diagnosis Bipolar I disorder (HRC) - Primary Bipolar I disorder, most recent episode (or current) unspecified ASHD (arteriosclerotic heart disease) (H RC) Coronary atherosclerosis of unspecified type of vessel, [place] or graft documented in this encounter Care Teams Fruit Shipper Relationship Specialty Start Date End Date Gagandeep Michaud MD PCP - General 05/17/12 [facility] [place] [address] Vane Zarate Psychiatrist Psychiatry 03/22/12 [facility] Health Psychotherapist 08/04/17 [facility] Car Record Clerk 09/13/17 documented as of this encounter
--- OUTSIDE RECORDS SUMMARY | 2022-03-14 18:39 | XMS_ITS | Encounter Summary ---
:1970 Author [address] [facility] Address [address], [place] [address] Care Team Providers Name Role Phone Gagandeep Hinojosa MD Primary Care Provider Reason for Visit Reason Comments FOLLOW-UP,DIABETES Encounter Details Date Type Department Care Team Description 04/01/2020 Care Coord Phone Judy Luke R N FOLLOW-UP,DIABETES Medicine [address] [place] [address] [place] [address] [place] [address] [phone] Social History Tobacco Use Types Packs/Day Years [...] RN - 04/01/2020 1:18 PM CST RN Cloth Stretcher - Diabetes Follow-Up Current diabetes medication regimen: [...] insurance, but would apply to providers within [facility], and would eliminate his responsibility for the [...] order to apply for Medicare Partners and [employer], as well as left these items on his voicemail because Rustam didn't have any way to write them down, including: ?? Bharath supplies ?? Sharepoint Architect's License ?? Insurance cards, Medicare AND Part [...] up on 04/08/20, bring documents above. RN Cloth Stretcher, as needed. Call if sx of hypoglycemia or glucose readings < 70 mg/dL. Rustam verbalized understanding and agreed with plan of care and follow up. ING ROLL OPERATOR documented in this encounter Plan of Treatment Not on filedocumented as of this encounter Visit Diagnoses Diagnosis Uncontrolled type 2 diabetes mellitus wi th diabetic polyneuropathy, with long-term current use of insulin Uncontrolled type 2 diabetes mellitus wi th microalbuminuria, with long-term current use of insulin Plan of Care - Judy Pittman, JOSETTE - 04/01/2020 1:00 PM CST Phone visit ING ROLL OPERATOR documented in this encounter Care Teams Airport Ramp Supervisor Relationship Specialty Start Date End Date Gagandeep Hinojosa MD PCP - General 05/17/12 1415 [facility] [place] [address] Vane Zarate Psychiatrsamantha Psychiatry 03/22/12 [facility] Psychotherapist 08/04/17 [facility] Business Services Associate 09/13/17 documented as of this encounter
--- OUTSIDE RECORDS SUMMARY | 2022-03-14 18:39 | XMS_ITS | Encounter Summary ---
:1970 Author Organization [facility] Address [address], [place] [address] Care Team Providers Name Role Phone Gagandeep Hinojosa MD Primary Care Provider Reason for Visit Reason Comments APPOINTMENT REQUEST Encounter Details Date Type Department Care Team Description 02/26/2020 Care Coord Phone Judy Luke R N APPOINTMENT REQUEST [facility] [address] . [place] [address] [place] [phone] [address] Social History Tobacco Use Types Packs/Day Years [...] with selecting a supplemental plan. Rustam agreed. TS LAWYER Judy Pittman RN - 02/26/2020 11:52 AM CST Rustam did not show for his DM follow up appt with Dr Hinojosa and myself today. I left a detailed message requesting he call back to reschedule, as we need to complete his application for [employer] and call the Senior Linkage Line to search for a Medicare supplemental plan. I stressed that both of these applications are time sensitive. TS LAWYER documented in this encounter Plan of Treatment Not on filedocumented as of this encounter Visit Diagnoses Not on filedocumented in this encounter Care Teams Livestock Broker Relationship Specialty Start Date End Date Gagandeep Hinojosa MD PCP - General 05/17/[address] [place], [place] [address] [address] Vane Zarate Psychiatrist Psychiatry 03/22/12 [facility] Psychotherapist 08/04/17 [facility] Staffing Account Manager 09/13/17 documented as of this encounter
--- OUTSIDE RECORDS SUMMARY | 2022-03-14 18:39 | XMS_ITS | Encounter Summary ---
:1970 Author Organization [employer] Address [address] [place] [address] Care Team Providers Name Role Phone Gagandeep Hinojosa MD Primary Care Provider Reason for Visit Reason Comments COVID Test Results Encounter Details Date Type Department Care Team Description 04/14/2020 Telephone [facility] Gagandeep Hinojosa, CO VID Test Results Medicine [address] [place], [place] [address] [place] [address] [phone] (Wo rk) Social History Tobacco Use Types [...] your PCP or complete a visit at [facility]. ??? If you develop shortness of breath [...] their results, a printout is available on [email or web address] or a letter has been sent via mail (if inactive on [email or web address]). Mikaela Saldivar RN 04/14/2020, 12:16 PM RVISOR FILTER ASSEMBLY documented in this encounter Plan of Treatment Not on filedocumented as of this encounter Visit Diagnoses Not on filedocumented in this encounter Care Teams Manager Heavy Duty Relationship Specialty Start Date End Date Gagandeep Hinojosa MD PCP - General 05/17/[address] [place], [place] [address] [address] Vane Zarate Psychiatrist Psychiatry 03/22/12 [facility] Psychotherapist 08/04/17 [facility] Powdered Metal Supervisor 09/13/17 documented as of this encounter
--- OUTSIDE RECORDS SUMMARY | 2022-03-14 18:39 | XMS_ITS | Encounter Summary ---
:1970 Author Organization [facility] Address [address] [place] [address] Care Team Providers Name Role Phone Gagandeep Michaud MD Primary Care Provider Reason for Visit Reason Comments Refill risperiDONE (RISPERDAL) 3 MG tablet [Pharmacy Med Name: RISPERIDONE 3MG TABS] Encounter Details Date Type Department Care Team Description 05/08/2020 Refill Gagandeep Storm, Rochelle l (risperiDONE Medicine MD (RISPERDAL) 3 MG tablet [address] [facility] [facility] [Pharmacy Med Name: [place] [address] [place] [address] RISPERIDONE 3MG TABS]) [phone] (Wo rk) Social History Tobacco Use Types [...] found) Next scheduled visit: None Powered by [employer], Reference: [id number], 05/08/2020 12:39:25 PM DUCK FARMER, Pool: MANUEL MOORE ([id number]) FARMER documented in this encounter Plan of Treatment Not on filedocumented as of this encounter Visit Diagnoses Not on filedocumented in this encounter Care Teams Claims Consultant Relationship Specialty Start Date End Date Gagandeep Michaud MD PCP - General 05/17/[address] [place] [address] [place] [address] Vane Zarate Psychiatrist Psychiatry 03/22/12 [facility] Mental Health Psychotherapist 08/04/17 [facility] Dental Technician Instructor 09/13/17 documented as of this encounter
--- OUTSIDE RECORDS SUMMARY | 2022-03-14 18:39 | XMS_ITS | Encounter Summary ---
:1970 Author Organization [facility] Address [address] [place] [address] Care Team Providers Name Role Phone Gagandeep Hinojosa MD Primary Care Provider Reason for Visit Procedure/Equipment (Routine) - Incomplete Specialty Diagnoses / Procedures Referred By Contact Refer red To Contact Diagnoses Pain of toe of right foot Gagandeep Hinojosa MD Procedures XR Toe Rt 2nd [address] [place] [address] Referral ID Status Reason Start Date Expiration Date Visits V isits Requested Authorized [id number] Incomplete 03/17/2020 06/16/2021 1 1 Encounter Details Date Type Department Care Team Description 03/17/2020 Ancillary Procedure [facility] Gagandeep Hinojosa Pain of toe of right [address] Rubio MD foot [address] [place] [address] Av [phone] [place] [address] Social History Tobacco Use Types Packs/Day Years [...] of righ t Results for this VIEWS CURATOR OF COLLECTIONS foot procedure are i n the results section. documented in this encounter Results XR Toe Rt 2nd 3 Views (03/17/2020 1:45 PM CURATOR OF COLLECTIONS) Anatomical Region Laterality Modality Lower Extremity, Foot, Foot & Ankle Digi ora Radiography Specimen (Source) Anatomical Collection Method Collection Time Re ceived Time Location / / Volume Laterality 03/17/2020 1:34 PM CURATOR OF COLLECTIONS Impressions 03/17/2020 2:23 PM CURATOR OF COLLECTIONS COMPARISON: ??None. FINDINGS: ??Question impacted second pro [...] limb documented in this encounter Care Teams Behavioral Medical Director Relationship Specialty Start Date End Date Gagandeep Hinojosa MD PCP - General 05/17/12 [address] [place] [address] Vane Zarate Psychiatrsamantha Psychiatry 03/22/12 [facility] Health Psychotherapist 08/04/17 [facility] Coordinate Measuring Machine Operator 09/13/17 documented as of this encounter
--- OUTSIDE RECORDS SUMMARY | 2022-03-14 18:39 | XMS_ITS | Encounter Summary ---
:1970 Author Organization [facility] Address [address] [place] [address] Care Team Providers Name Role Phone Gagandeep Michaud MD Primary Care Provider Reason for Visit Reason Comments Refill QUEtiapine (SEROQUEL) 200 MG tablet [Pharmacy Med Name: QUEtiapine Fumarate 200 MG Oral Tablet] Encounter Details Date Type Department Care Team Description 12/10/2019 Refill Gagandeep Storm, Rochelle l (QUEtiapine Medicine (SEROQUEL) 200 MG tablet [address] 1415 [facility] [Pharmacy Med Name: KATIANA Vigil [address] [place] [address] QUEtiapine Fumarate 200 [phone] (Wo rk) MG Oral Tablet]) Social History [...] MICHAUD) Next scheduled visit: None Powered by Rollstream, Reference: [id number], 12/10/2019 5:31:41 AM CDT, Pool: MANUEL MOORE ([id number]) documented in this encounter Plan of Treatment Not on filedocumented as of this encounter Visit Diagnoses Not on filedocumented in this encounter Care Teams Wire Frame Maker Relationship Specialty Start Date End Date Gagandeep Michaud MD PCP - General 05/17/[address] [place] [address] KATIANA Greber [address] Vane Zarate Psychiatrist Psychiatry 03/22/12 [facility] Psychotherapist 08/04/17 [facility] Slope Runner 09/13/17 documented as of this encounter
--- OUTSIDE RECORDS SUMMARY | 2022-03-14 18:39 | XMS_ITS | Encounter Summary ---
:1970 Author Organization [facility] Address [address] [place] [address] Care Team Providers Name Role Phone Gagandeep Hinojosa MD Primary Care Provider Reason for Visit Reason Comments DEPRESSION Encounter Details Date Type Department Care Team Description 01/19/2020 Nurse Triage [place] Nurse Line Gagandeep Hinojosa MD DEPRESSION [id number] [place] [address] [phone] Social History Tobacco Use Types Packs/Day Years [...] (mental health worker, psychiatrist, etc.) Protocols used: [id number] Problem list reviewed as related to this call. documented in this encounter Plan of Treatment Not on filedocumented as of this encounter Visit Diagnoses Not on filedocumented in this encounter Care Teams Signal Intelligence Analyst Relationship Specialty Start Date End Date Gagandeep Hinojosa MD PCP - General 05/17/[address] [place] [address] [place] [address] Vane Zarate Psychiatrist Psychiatry 03/22/12 [facility] Psychotherapist 08/04/17 [facility] Enterprise Manager 09/13/17 documented as of this encounter
--- OUTSIDE RECORDS SUMMARY | 2022-03-14 18:39 | XMS_ITS | Encounter Summary ---
:1970 Author Organization [facility] Address [address] [place] [address] Care Team Providers Name Role Phone Gagandeep Michaud MD Primary Care Provider Reason for Visit Reason Comments Refill QUEtiapine (SEROQUEL) 200 MG tablet [Pharmacy Med Name: QUEtiapine Fumarate 200 MG Oral Tablet] Encounter Details Date Type Department Care Team Description 10/14/2019 Refill Gagandeep Storm, Rochelle l (QUEtiapine Medicine (SEROQUEL) 200 MG tablet [address] 1415 [facility] [Pharmacy Med Name: KAT[place]NA Vigil [address] K[place]NA VIGIL [address] QUEtiapine Fumarate 200 [phone] (Wo rk) MG Oral Tablet]) Social History [...] MICHAUD) Next scheduled visit: None Powered by [place]burg, Reference: [id number], 10/14/2019 4:31:34 PM CDT, Pool: MANUEL MOORE ([id number]) documented in this encounter Plan of Treatment Not on filedocumented as of this encounter Visit Diagnoses Not on filedocumented in this encounter Care Teams Global Technical Writer Relationship Specialty Start Date End Date Gagandeep Michaud MD PCP - General 05/17/[address] [place] [address] KATIANA Gerber [address] Vane Zarate Psychiatrist Psychiatry 03/22/12 [facility] Psychotherapist 08/04/17 [facility] Vp Digital Marketing 09/13/17 documented as of this encounter
--- OUTSIDE RECORDS SUMMARY | 2022-03-14 18:39 | XMS_ITS | Encounter Summary ---
:1970 Author Organization [facility] Address [address] [place] [address] Care Team Providers Name Role Phone Gagandeep Michaud MD Primary Care Provider Reason for Visit Reason Comments Refill risperiDONE (RISPERDAL) 3 MG tablet [Pharmacy Med Name: risperiDONE 3 MG Oral Tablet] Encounter Details Date Type Department Care Team Description 10/28/2019 Refill Gagandeep Storm, Refrose mary l (risperiDONE Medicine MD (RISPERDAL) 3 MG tablet [address] 1415 [facility] [Pharmacy Med Name: [place] [address] [place] [address] risperiDONE 3 MG Oral [phone] (Wo rk) Tablet]) Social History Tobacco Use [...] MICHAUD) Next scheduled visit: None Powered by SQLstream, Reference: [id number], 10/28/2019 2:48:42 PM CDT, Pool: MANUEL REFILL ([id number]) documented in this encounter Plan of Treatment Not on filedocumented as of this encounter Visit Diagnoses Not on filedocumented in this encounter Care Teams Orthopaedic Nurse Relationship Specialty Start Date End Date Gagandeep Michaud MD PCP - General 05/17/[address] [place], [place] [address] [address] Vane Zarate Psychiatrist Psychiatry 03/22/12 [facility] Psychotherapist 08/04/17 [facility] Senior Director Finance 09/13/17 documented as of this encounter
--- OUTSIDE RECORDS SUMMARY | 2022-03-14 18:39 | XMS_ITS | Encounter Summary ---
:1970 Author Organization [facility] Address [address] [address] Care Team Providers Name Role Phone Gagandeep Hinojosa MD Primary Care Provider Reason for Visit Reason Comments Patient Care Coordination Encounter Details Date Type Department Care Team Description 05/30/2020 Care Coord [facility] Deborah Rodrigues Patient C are Office Visit Medicine A, [facility] Coordination [address] [facility] [place] [address] [place], [place] [phone] Social History Tobacco Use Types Packs/Day Years [...] of this encounter Progress Notes Deborah Rodrigues PAGE MAKEUP SYSTEM OPERATOR - 05/30/2020 9:00 AM CST Care Coordination Visit Pt: Timur Krishnamurthy Reason for visit: Care Coordination Timur was seen alone. Discussion/actions: Met with Rustam for a scheduled care coordination appointment, as JOSETTE NIEVES is out of the clinic today. Completed his [employer] (formerly known as [employer]) Assistance application and his Medicare Partners application. I sent the FA application to the Mill Manager and mailed in the Medicare Partners application,with [...] to move to an IRTS facility in [place]. Rustam deniedneeding anything else at this time and will call back if he something comes up. No thoughts of suicide right now. Patient received verbal instructions and written materials tailored to his or her preferred method of learning. Literacy level assessed (as appropriate). Interventions, including teach back, used to verify understanding. Patient Goal(s): 1. I want to be approved for [facility] and [employer]. Goal: in process 2. I want to move to an IRTS. Goal: in process SHARED PLAN: -PCP appointment 06/02 at 11:20. -RN Care Coordination appointment 06/12 at 11:00. Pt verbalized understanding and agreed with plan of care and follow up. CULAR MODELER documented in this encounter Plan of Treatment Not on filedocumented as of this encounter Visit Diagnoses Diagnosis Complex care coordination - Primary documented in this encounter Care Teams Leather Repairer Relationship Specialty Start Date End Date Gagandeep Hinojosa MD PCP - General 05/17/12 1415 [facility] K[place] Gerber [address] Vane Zarate Psychiatrist Psychiatry 03/22/12 [facility] Psychotherapist 08/04/17 [facility] CM Color Grinder 09/13/17 documented as of this encounter
--- OUTSIDE RECORDS SUMMARY | 2022-03-14 18:39 | XMS_ITS | Encounter Summary ---
:1970 Author Organization [facility] Address [address], [place] [address] Care Team Providers Name Role Phone Gagandeep Hinojosa MD Primary Care Provider Reason for Visit Reason Comments FOLLOW-UP,DIABETES Encounter Details Date Type Department Care Team Description 11/13/2019 Care Coord Office Judy Luke RN FOLLOW-UP,DIABETES Visit [address] [place] [address] [place] [phone] Social History Tobacco Use Types Packs/Day Years [...] RN - 11/13/2019 11:00 AM CDT RN Sexual Assault Nurse Visit Pt: Timurcole Krishnamurthy Referred by: Gagandeep [...] on filedocumented in this encounter Care Teams Attic Blower Relationship Specialty Start Date End Date Gagandeep Hinojosa MD PCP - General 05/17/12 1415 [facility] K[place] Gerber [address] Vane Zarate Psychiatrist Psychiatry 03/22/12 [facility] Psychotherapist 08/04/17 [facility] Flat Hammerer 09/13/17 documented as of this encounter
--- OUTSIDE RECORDS SUMMARY | 2022-03-14 18:39 | XMS_ITS | Encounter Summary ---
:1970 Author Organization [facility] Address [address] [place] [address] Care Team Providers Name Role Phone Gagandeep Hinojosa MD Primary Care Provider Encounter Details Date Type Department Care Team Description 12/04/2019 Lab Visit [facility] Routine general medical exam ination at health care facility (Primary Dx); [address] Type 2 diabetes mellitus wit h diabetic polyneuropathy, with long-term current use of insulin (HRC); [place] [address] Uncontrolled type 2 diabetes mellitus with hyperglycemia ([facility]); [phone] Diabetes mellit us with complication ([facility]); Diabetes mellit us with neurological manifestations, uncontrolled ([facility]); Diabetic polyne uropathy associated with type 2 diabetes mellitus (HR); ASHD (arteriosc lerotic heart disease) Social History [...] this AM CDT mellitus with diabetic proce stephanie are in polyneuropathy, with the res ults [...] P athologist Signature Albumin, 351.2 mg/L 12/04/2019 [place] Urine, Random 3:54 PM CDT LABORATORY Creatinine, 106 >20 mg/dL 12/04/2019 [place] Urine, Random 3:54 PM CDT LABORATORY Albumin/Creati 331 (H) <30 mg/g 12/04/2019 [place] nine Ratio, 3:54 PM CDT LABORATORY Urine, Random Specimen Anatomical Collection Method Collection Time Receive d Time (Source) Location / / Volume Laterality Urine Non-blood 12/04/2019 10:10 12/04/2019 Collection / AM CDT 10:10 AM CDT Unknown Gagandeep Hinojosa MD LAB_1 Performing Organization Address [facility]/ZIP Code Phon e Number [facility] [address] [place], [place] [phone] (ABNORMAL) Lipid Panel and Direct LDL(If Needed) - in 3 months (12/04/2019 10:06 AM CDT) Patholo gist Method Time Signature Cholesterol 116 0 - 199 12/04/2019 [place] mg/dL 4:03 PM CDT LABORATORY Triglyceride 137 <=149 12/04/2019 [place] mg/dL 4:03 PM CDT LABORATORY HDL Cholesterol 35 (L) >=40 mg/dL 12/04/2019 [place] 4:03 PM CDT LABORATORY LDL, Calculated 54 <130 mg/dL 12/04/2019 [place] 4:03 PM CDT LABORATORY Non HDL Chol, 81 mg/dL 12/04/2019 [place] Calculated 4:03 PM CDT LABORATORY Cholesterol/HDL 3.3 12/04/2019 [place] Ratio 4:03 PM CDT LABORATORY Hours Fasting 12 12/04/2019 [place] 4:03 PM CDT LABORATORY Specimen Anatomical Collection Method / Collection Time Recei abimael Time (Source) Location / Volume Laterality Blood Venipuncture / 12/04/2019 10:06 0 Unknown AM CDT 10:06 AM CDT Gagandeep Hinojosa MD LAB_1 Performing Organization Address City/[facility]/ZIP Code Phon e Number [facility] [address] [place], [place] [phone] [facility] [address] [place] [phone], [facility] Creatinine / GFR - in 3 months (12/04/2019 10:06 AM CDT) P athologist Signature Creatinine 0.80 0.73 - 12/04/2019 [place] 1.18 mg/dL 4:03 PM CDT LABORATORY GFR, Estimated >60 >60 12/04/2019 [place] mL/min/1.7 4:03 PM CDT LABORATORY 3m2 Specimen Anatomical Collection Method / Collection Time Recei abimael Time (Source) Location / Volume Laterality Blood Venipuncture / 12/04/2019 10:06 0 Unknown AM CDT 10:06 AM CDT Gagandeep Hinojosa MD LAB_1 Performing Organization Address City/[facility]/ZIP Code Phon [facility] Number [facility] [address] [place] [phone] (ABNORMAL) POCT Glycosylated Hemoglobin (HB A1C) - in 3 months (12/04/2019 10:06 AM CDT) Patholo gist Method Time Signature Hemoglobin A1C 11.3 (H) <=5.6 % 12/04/2019 [place] (Rapid) 10:15 AM CDT LABORATORY Specimen Anatomical Collection Method / Collection Time Recei abimael Time (Source) Location / Volume Laterality Blood Venipuncture / 12/04/2019 10:06 0 Unknown AM CDT 10:06 AM CDT Narrative [facility] - 12/04/2019 10:15 A M CDT This Rapid A1c test is designed for charlotte toring patients with an established diagnosis of diabetes mellitus. This rapid method is not suitable to establish the initial diagnosis of diabetes mellitus. Performe d using Point of Care Instrumentation. Gagandeep Hinojosa MD LAB_1 Performing Organization Address [facility] Phon e Nilsa [facility] [address] [place] [address] Extra Gold/SST Tube (12/04/2019 10:06 AM CDT) [facility] Made2Manage Systems Method Time Signature Extra Specimen 12/04/2019 [place] Gold/SST Tube will be held 12:00 PM CDT LABORATORY Drawn for 5 days Specimen Anatomical Collection Method / Collection Time Recei abimael Time (Source) Location / Volume Laterality Blood Venipuncture / 12/04/2019 10:06 0 Unknown AM CDT 10:06 AM CDT Gagandeep Hinojosa MD LAB_1 Performing Organization Address City/[facility]/ZIP Code Phon e Number [facility] [address] [place] [address] [phone] documented in this encounter Visit Diagnoses Diagnosis Routine general medical examination at [facility] - Primary Routine general medical examination at a [facility] facility Type 2 diabetes mellitus with [...] diabetes mellitus (HRC) ASHD (arteriosclerotic heart disease) (H ) Coronary atherosclerosis of unspecified type of vessel, knik or graft documented in this encounter Care Teams Moisture Meter Operator Relationship Specialty Start Date End Date Gagandeep Hinojosa MD PCP - General 05/17/12 [address] [place] [address] Vane Zarate Psychiatrist Psychiatry 03/22/12 [facility] Psychotherapist 08/04/17 [facility] Crisis Intervention Specialist 09/13/17 documented as of this encounter
--- OUTSIDE RECORDS SUMMARY | 2022-03-14 18:39 | XMS_ITS | Encounter Summary ---
:1970 Author Organization [facility] Address [address] [place] [address] Care Team Providers Name Role Phone Gagandeep Hinojosa MD Primary Care Provider Encounter Details Date Type Department Care Team Description 04/10/2020 Notes/Orders [facility]Alhaji Co ntact with or Vasquez Belcher MD exposure to viral [address] [place] [address] [phone] Social History Tobacco Use Types Packs/Day Years [...] 2019 Novel Coronavirus (COVID-19) (04/10/2020 10:29 AM IN FLIGHT REFUELING OPERATOR) [facility] Method Time Signature SARS-CoV-2 by Not Detected 04/11/2020 [facility] PCR 11:15 PM IN FLIGHT REFUELING OPERATOR LABORATORIES Comment: INTERPRETIVE INFORMATION: SARS-CoV-2 (CO VID-19) [...] complia nce with this authorization, please visit [email or web address] for more information and to access [...] collection, transport, storage, and handling. Performed by [facility], [address] [place] [address] [email or web address], Barbara Mckeon MD, La b. Director SARS Cov-2 Source Nares, left and 04/11/2020 11:15 PM IN FLIGHT REFUELING OPERATOR [email or web address] right Specimen Anatomical Collection Method Collection Time Receive d Time (Source) Location / / Volume Laterality Swab (Source Non-blood 04/10/2020 10:29 04/10/2020 Required) Collection / AM IN FLIGHT REFUELING OPERATOR 11:56 AM IN FLIGHT REFUELING OPERATOR Unknown Alhaji Egan MD LAB_1 Performing Organization Address City/State/ZIP Code Phon e Number [email or web address] [address] [place], [place] [phone] documented in this encounter Visit Diagnoses Diagnosis Contact with or exposure to viral diseas e Contact with or exposure to other viral diseases documented in this encounter Care Teams Review Trainer Relationship Specialty Start Date End Date Gagandeep Hinojosa MD PCP - General 05/17/12 14[facility] KATIANA Gerber [address] Vane Zarate Psychiatrist Psychiatry 03/22/12 [facility] Psychotherapist 08/04/17 [facility] Grinder Set Up Operator Universal 09/13/17 documented as of this encounter
--- OUTSIDE RECORDS SUMMARY | 2022-03-14 18:39 | XMS_ITS | Encounter Summary ---
:1970 Author Organization [facility] Address [address] [place] [address] Care Team Providers Name Role Phone Gagandeep Hinojosa MD Primary Care Provider Reason for Referral Consult/Transfer Care (Routine) - Closed Specialty Diagnoses / Procedures Referred By Contact Refer red To Contact Diagnoses Complex care coordination Gagandeep Hinojosa MD [address] [place] [address] Referral ID Status Reason Start Date Expiration Date Visits Requ ested Visits Authorized [id number] Closed 06/09/2020 09/08/2021 1 1 Scheduling Instructions Your provider has recommended care coord ination. A care steam blocker will call you within two weeks. If you would like to s peak with someone sooner, please contact your primary care clinic. COMMODITY SALES DELIVERER Consult/Transfer Care (Routine) - Closed Specialty Diagnoses / Procedures Referred By Contact Refer red To Contact Diagnoses Warts, genital Gagandeep Hinojosa MD [address] [place] [address] Referral ID Status Reason Start Date Expiration Date Visits Requ ested Visits Authorized [id number] Closed 06/09/2020 09/08/2021 1 1 Scheduling Instructions Your provider has recommended an appoint ment with Jimena Quinn. You may call [phone] to schedule your appoi ntment. We suggest you call your health insurance company about your coverage an d benefits for this appointment. COMMODITY SALES DELIVERER Reason for Visit Reason Comments [facility] [place] Encounter Details Date Type Department Care Team Description 06/09/2020 Office Visit [facility] Gagandeep Hinojosa g enital (Primary Dx); Romario Rubio MD Skin lesion; [address] [place] 1415 [facility] Complex care coordination; Ave. Ave Bipolar I disorder (HRC); [place] Vigil [address] K[place]NA VIGIL Drug-induced extrapyramidal movement disorder [phone] [id number] Social History Tobacco Use Types Packs/Day Years [...] Comments Blood Pressure 132/88 06/09/2020 4:43 PM ANY COMMODITY SALES DELIVERER Pulse 99 06/09/2020 4:43 PM ANY COMMODITY SALES DELIVERER Temperature - - Respiratory Rate - - Oxygen Saturation - - Inhaled Oxygen Concentration - - Weight 88.9 kg (196 lb) 06/09/2020 4:43 PM ANY COMMODITY SALES DELIVERER Height - - Body Mass Index 28.12 12/04/2019 10:49 AM CDT documented in this encounter Progress Notes Gagandeep Hinojosa MD - 06/09/2020 4:40 PM CST ICD-10-CM 1. Warts, genital A63.0 DESTRUCT BENIGN SKIN LESIONS UP TO 14 [address] Dermatology Consult-Adult/Peds 2. Skin lesion L98.9 3. [...] Just discharged from a crisis facility at [place] for acute on psychiatric crisis. Not suicidal, [...] unspecified ??? Microalbuminuria 02/04/2012 ??? [place], old ([facility]) 09/16/2011 ??? History [...] disorder (HRC) 09/15/2005 Overview Note: LW Onset: [id number] ; Bipolar I Dis FAMILY HISTORY OR [...] 360 Tablet 3 ??? Continuous Blood Gluc Clock Smith (FREESTYLE TALAT 2 READER SYSTM) ADÁN Use to scan blood sugars per pediatric nurse instructions. 1 Each 0 ??? Continuous Blood Gluc Sensor (FREESTYLE TALAT 14 DAY SENSOR) [facility] Use as directed. Change every 14 days. [...] 1 Tablet by mouth. 01/16/2018: [email or web address] Re[facility] Sig: Take 1 tablet [...] DESTRUCT BENIGN SKIN LESIONS UP TO 14 [id number] Dermatology Consult-Adult/Peds 2. Skin lesion L98.9 Will [...] follow-up He has a visit with his care management specialist for on . Hopefully she can help with housing. Follow-up: 3 weeks COMMODITY SALES DELIVERER documented in this encounter Plan of Treatment Scheduled Referrals Name Type Priority Associated Diagnoses Order [facility] Dermatology Referral Routine Warts, genital Ordered: 05/26 Consult-Adult/Peds documented as of this encounter Visit Diagnoses Diagnosis Warts, genital - Primary Condyloma acuminatum Skin lesion Unspecified disorder of skin and subcuta neous tissue Complex care coordination Bipolar I disorder (HRC) Bipolar I disorder, most recent episode (or current) unspecified Drug-induced extrapyramidal movement dis order (HRC) documented in this encounter Care Teams Nuclear Supervising Operator Relationship Specialty Start Date End Date Gagandeep Hinojosa MD PCP - General 05/17/12 [address]15 [facility] [place] [address] Vane Zarate Psychiatrist Psychiatry 03/22/12 [facility] Psychotherapist 08/04/17 [facility] Operations Consultant 09/13/17 documented as of this encounter
--- OUTSIDE RECORDS SUMMARY | 2022-03-14 18:39 | XMS_ITS | Encounter Summary ---
:1970 Author Organization [facility] Address [address] [place] [address] Care Team Providers Name Role Phone Gagandeep Hinojosa MD Primary Care Provider Reason for Visit Reason Comments Appointment Encounter Details Date Type Department Care Team Description 01/01/2020 Telephone [facility] Gagandeep Hinojosa MD Appointment [facility] [facility] . 1415 [facility] [place] [place] [address] [place] [address] [phone] (Wo rk) Social History Tobacco Use Types [...] message for patient to return call to [phone]. Carolyn Johnson - 01/01/2020 3:58 PM CDT [...] on filedocumented in this encounter Care Teams Word Processing Supervisor Relationship Specialty Start Date End Date Gagandeep Hinojosa MD PCP - General 05/17/[address] [place] [address] [place] [address] Vane Zarate Psychiatrist Psychiatry 03/22/12 [facility] Psychotherapist 08/04/17 [facility] Water Quality Specialist 09/13/17 documented as of this encounter
--- OUTSIDE RECORDS SUMMARY | 2022-03-14 18:39 | XMS_ITS | Encounter Summary ---
:1970 Author Organization [facility] Current Address [address] [place] [address] Care Team Providers Name Role Phone Gagandeep Hinojosa MD Primary Care Provider Reason for Visit Reason Comments LETTER NEEDED Encounter Details Date Type Department Care Team Description 03/12/[address] [facility] Gagandeep Hinojosa MD LETTER NEEDED 1415 [facility] . [address] [place] [address] [place] [address] [phone] (Wo rk) Social History Tobacco Use Types [...] that med list is at the front counter clerk ready to be picked up Saumya Ordaz - 03/12/2020 4:02 PM CST Forms & Letters What form/letter are you requesting? Pt would like medication list This letter/other is needed from: Gagandeep Hinojosa MD for linkage line How would you like to receive your completed letter/other? supervisor reclamation at the clinic Additional comments (related to [...] contact you.) Please route to: BRENT Coates GE PIPEMAN documented in this encounter Plan of Treatment Not on filedocumented as of this encounter Visit Diagnoses Not on filedocumented in this encounter Care Teams Production Superintendent Hydro Relationship Specialty Start Date End Date Gagandeep Hinojosa MD PCP - General 05/17/12 [facility] [place] [address] Vane Zarate Psychiatrist Psychiatry 03/22/12 [facility] Psychotherapist 08/04/17 [facility] Early Head Start Teacher 09/13/17 documented as of this encounter
--- OUTSIDE RECORDS SUMMARY | 2022-03-14 18:39 | XMS_ITS | Encounter Summary ---
:1970 Author Organization [employer] Address [address] [place] [address] Care Team Providers Name Role Phone Gagandeep Hinojosa MD Primary Care Provider Reason for Visit Reason Comments Financial Encounter Details Date Type Department Care Team Description 04/08/2020 Care Coord Office Judy Luke RN Financial Visit Medicine 1415 [facility] 1415 [facility] . [place] [address] [place] [address] [phone] Social History Tobacco Use Types Packs/Day Years [...] he also needs help with applying his Evolver Bharath sensor. Insurance Rustam currently has Medicare, plus [...] Rustam receives all his care at a [facility] facility, he will not be financially responsible for the 20% Medicare does not cover. Rustam is still waiting for his Social Security Benefit letter, which should arrive before the end 2019. In the meantime, we completed the application and will mail it in once he receives the benefit letter. Medication Rustam is taking a regimen of metformin, Tresiba, and Relion R insulin to manage his glucose control.The cost of insulin is very expensive for Rustam, especially now that his income has decreased with the divorce. Therefore, he would like to apply for [employer] to help with the cost of Tresiba [...] SHARED PLAN: Completed [employer] application. Completed [employer] PAP application. Bring Social Security Benefit letter and fax applications above. Scan BG readings, as directed. Come in to replace Bharath sensors every 14 days. Rustam verbalized understanding and agreed with plan of care and follow up. G COATER documented in this encounter Plan of Treatment Not on filedocumented as of this encounter Visit Diagnoses Not on filedocumented in this encounter Care Teams Flat Lock Operator Relationship Specialty Start Date End Date Gagandeep Hinojosa MD PCP - General 05/17/12 [address] [place], [place] [address] Vane Zarate Psychiatrist Psychiatry 03/22/12 [facility] Mental Health Psychotherapist 08/04/17 [facility] Glue Spreader 09/13/17 documented as of this encounter
--- OUTSIDE RECORDS SUMMARY | 2022-03-14 18:40 | XMS_ITS | Encounter Summary ---
:1970 Author Organization [facility] Address [address], [place] [address] Care Team Providers Name Role Phone Gagandeep Hinojosa MD Primary Care Provider Reason for Visit Reason Comments FOLLOW-UP,DIABETES Encounter Details Date Type Department Care Team Description 09/18/2019 Care Coord Office Judy Luke RN FOLLOW-UP,DIABETES Visit [address] [place] [address] [place] [phone] Social History Tobacco Use Types Packs/Day Years [...] RN - 09/18/2019 3:00 PM CDT RN Choral Director Visit Pt: Timurcole Krishnamurthy Referred by: Gagandeep [...] cheese sticks and Romanian or light yogurt instead. I reminded Rustam [...] Mental Health Case Management and therapy through [facility], but needs a new psychiatrist for medication management. Last week we left a message to schedule with a [facility] provider, but Rustam states he did not receive a return call. We called again today and scheduled a video visit with Dr Darnell on 10/24/19. Rustam states his , Rosetta, will help him install Kids Movie on his phone and we can practice [...] on 09/24/19. Scheduled appt with Jimena French [facility] on 10/24/19. Rustam to call if symptoms of hypoglycemia or readings < 70 mg/dL. Rustam verbalized understanding and agreed with plan of care and follow up. documented in this encounter Plan of Treatment Not on filedocumented as of this encounter Visit Diagnoses Not on filedocumented in this encounter Care Teams Front Office Manager Relationship Specialty Start Date End Date Gagandeep Hinojosa MD PCP - General 05/17/12 1415 [facility] [place] [address] Vane Zarate Psychiatrsamantha Psychiatry 03/22/12 [facility] Psychotherapist 08/04/17 [facility] Change Coordinator 09/13/17 documented as of this encounter
--- OUTSIDE RECORDS SUMMARY | 2022-03-14 18:40 | XMS_ITS | Encounter Summary ---
:1970 Author Organization [facility] Address [address] [place] [address] Care Team Providers Name Role Phone Gagandeep Hinojosa MD Primary Care Provider Reason for Visit Reason Comments LAB RESULTS Encounter Details Date Type Department Care Team Description 07/11/2019 Telephone [facility] Gagandeep Hinojosa MD LAB RESULTS 1415 [facility] . [address] [place] [address] [place] [address] [phone] (Wo rk) Social History Tobacco Use Types [...] ZioPatch results Clinician Next Step: Route to [place] Nurse ladoga to follow up Specific Request(s): 1. Results have been routed to providers results inquail run behavioral health. Please review and advise. Jessica Tirado - 07/11/2019 3:45 PM CDT Test Results (Advise caller/patient can view test results in MyChart, if enrolled) What test are you calling about? Zio patch -pt request a call back today Primary Cath Lab Technologist: Gagandeep Hinojosa MD Who ordered the test? [...] on filedocumented in this encounter Care Teams Donor Technician Relationship Specialty Start Date End Date Gagandeep Hinojosa MD PCP - General 05/17/12 [address] [place] [address] Vane Zarate Psychiatrist Psychiatry 03/22/12 [facility] Psychotherapist 08/04/17 [facility] Lithograph Printer 09/13/17 documented as of this encounter
--- OUTSIDE RECORDS SUMMARY | 2022-03-14 18:40 | XMS_ITS | Encounter Summary ---
:1970 Author Organization [employer] Address [address] [place] [address] Care Team Providers Name Role Phone Gagandeep Hinojosa MD Primary Care Provider Reason for Visit Reason Comments Hospital Discharge Follow-up 06-17-19 [facility] admi t for Chest pain Encounter Details Date Type Department Care Team Description 06/21/2019 Office Visit Gagandeep Storm Atypical chest pain (Primary Dx); Romario Rubio MD H/O atrial flutter; [address] 1415 [facility] Uncontrolled type 2 diabetes mellitus without complication, without long-term current use of insulin (HRC); [place] [address] [address] Tobacco use disorder; [phone] [place] [address] Drug-induced tremor Social History Tobacco Use [...] Comments Blood Pressure 132/85 06/21/2019 10:26 AM MOTION PICTURE SET GRIP Pulse 92 06/21/2019 10:26 AM MOTION PICTURE SET GRIP Temperature - - Respiratory Rate - - Oxygen Saturation - - Inhaled Oxygen Concentration - - Weight 90.7 kg (200 lb) 06/21/2019 10:26 AM MOTION PICTURE SET GRIP Height 177.2 cm (5' 9.75) 06/21/2019 10:26 AM MOTION PICTURE SET GRIP Body Mass Index 28.9 06/21/2019 10:26 AM MOTION PICTURE SET GRIP documented in this encounter Progress Notes Gagandeep [...] presents with ??? Hospital Discharge Follow-up 06-17-19 [facility] hospital admit for Chest pain SUBJECTIVE : [...] Note: Anemia, unspecified ??? Microalbuminuria 02/04/2012 ??? MD, old ([facility]) 09/16/2011 ??? History [...] [facility]) 09/15/2005 Overview Note: LW Onset: 21Slj66 ; Bipolar I Dis FAMILY HISTORY OR [...] 1 Tablet by mouth. 01/16/2018: Received from: [facility] [facility] Received Sig: Take 1 tablet [...] 32 Units subcutaneously daily. 6 mL5 ??? Briar Carbonate 600 MG capsule Take 600 mg by mouth daily at bedtime. 01/16/2018: Received from: External Pharmacy Received Sig: TAKE ONE CAPSULE BY MOUTH AT BEDTIME 0 ??? Vitamin D, Ergocalciferol, 01171 units CAPS Take 50,000 Units by mouth. [...] enhancing his diabetes control Follow-up: 2 weeks ON PICTURE SET GRIP documented in this encounter Plan of Treatment [...] remor documented in this encounter Care Teams Credit Front Office Developer Relationship Specialty Start Date End Date Gagandeep Hinojosa MD PCP - General 05/17/12 1415 [facility] [place] [address] Vane Zarate Psychiatrist Psychiatry 03/22/12 [facility] Mental Health Psychotherapist 08/04/17 [facility] Software Qa Manager 09/13/17 documented as of this encounter
--- OUTSIDE RECORDS SUMMARY | 2022-03-14 18:40 | XMS_ITS | Encounter Summary ---
:1970 Author Organization [facility] Address [address] [place] [address] Care Team Providers Name Role Phone Gagandeep Michaud MD Primary Care Provider Reason for Visit Reason Comments Refill metFORMIN (GLUCOPHAGE) 500 M G tablet [Pharmacy Med Name: metFORMIN HCl 500 MG Oral Tablet] Encounter Details Date Type Department Care Team Description 10/03/2019 Refill [facility] Gagandeep Michaud, Rochelle l (metFORMIN Medicine (GLUCOPHAGE) [address] tablet [[place] [address] [place] [address] Name: metFORMIN HCl 500 [phone] (Wo rk) MG Oral Tablet]) Social History [...] MOUTH TWICE DAILY WITH MEALS Interface, Out Quill Content Query - 10/03/2019 12:48 PM CDT metFORMIN [...] : 11.4 % on 08/28/2019 Powered by [employer], Reference: [id number], 10/03/2019 12:48:11 PM CDT, Pool: MANUEL REFILL ([id number]) Electronically signed by Interface, Out Social IQ (Social Influence Quotient) Prov Query at 10/04/2019 12:50 PM CDT documented in this encounter Plan of Treatment Not on filedocumented as of this encounter Visit Diagnoses Diagnosis Uncontrolled type 2 diabetes mellitus wi thout complication, without long-term current use of insulin documented in this encounter Care Teams Fibreglass Lay Up Worker Relationship Specialty Start Date End Date Gagandeep Michaud MD PCP - General 05/17/12 8[address] [facility] [place] [address] Vane Zarate Psychiatrist Psychiatry 03/22/12 [facility] Mental Health Psychotherapist 08/04/17 [facility] Couture Dressmaker 09/13/17 documented as of this encounter
--- OUTSIDE RECORDS SUMMARY | 2022-03-14 18:40 | XMS_ITS | Encounter Summary ---
:1970 Author Organization [facility] Address [address] [place] [address] Care Team Providers Name Role Phone Gagandeep Hinojosa MD Primary Care Provider Reason for Visit Reason Comments Appt. Needed medicare wellness Encounter Details Date Type Department Care Team Description 08/06/2019 Telephone [facility] Gagandeep Hinojosa, Appt. Needed (medicare Medicine MD wellness) 1415 [facility] . [address] [place] [address] [place] [address] [phone] (Wo rk) Social History Tobacco Use Types [...] on filedocumented in this encounter Care Teams Produce Specialist Relationship Specialty Start Date End Date Gagandeep Hinojosa MD PCP - General 05/17/12 [facility]5 [facility] [place] [address] Vane Zarate Psychiatrsamantha Psychiatry 03/22/12 [facility] Psychotherapist 08/04/17 [facility] Bacteriology Technician 09/13/17 documented as of this encounter
--- OUTSIDE RECORDS SUMMARY | 2022-03-14 18:40 | XMS_ITS | Encounter Summary ---
:1970 Author Organization [facility] Address [address] [place] [address] Care Team Providers Name Role Phone Gagandeep Michaud MD Primary Care Provider Reason for Visit Reason Onset Date Comments Refill 08/24/2019 benztropine (COGENTI N) 1 MG tablet Encounter Details Date Type Department Care Team Description 08/24/2019 Refill [facility] Gagandeep Michaud, [place]il[place] l (benztropine Medicine (COGENTIN) 1 MG tablet) 1415 [facility] . [address] [place] [address] [place], [place] [address] (Wo rk) Social History Tobacco Use Types [...] 9:50 AM CDT Call patient Interface, Out [employer] Prov Query - 08/24/2019 8:34 AM CDT benztropine (COGENTIN) 1 MG tablet -> The medication cannot be found in the patient's medication history. -> Medication cannot be delegated. Last qualifying visit: 06/21/2019 (with GAGANDEEP MICHAUD) Next scheduled visit: 08/28/2019 (in Family Practice) Powered by [employer], Reference: [id number], 08/24/2019 8:34:13 AM CDT, Pool: MANUEL MOORE ([id number]) documented in this encounter Plan of Treatment Not on filedocumented as of this encounter Visit Diagnoses Not on filedocumented in this encounter Care Teams Operator Helper Relationship Specialty Start Date End Date Gagandeep Michaud MD PCP - General 05/17/12 [facility] [place] [address] Vane Zarate Psychiatrist Psychiatry 03/22/12 [facility] Mental Health Psychotherapist 08/04/17 [facility] Cryptography Teacher 09/13/17 documented as of this encounter
--- OUTSIDE RECORDS SUMMARY | 2022-03-14 18:40 | XMS_ITS | Encounter Summary ---
:1970 Author Organization [facility] Address [address] [place] [address] Care Team Providers Name Role Phone Gagandeep [...] Type Department Care Team Description 08/10/2019 Refill [facility] Gagandeep Michaud, Refil l (atorvastatin Medicine MD (LIPITOR) 80 MG tablet [address] 1415 [facility] [Pharmacy Med Name: [place] [address] [place] [address] Atorvastatin Calcium 80 [phone] (Wo rk) MG Oral Tablet]; metoprolo l [...] as of this encounter Nursing Notes Gloria Hdez, JOSETTE - 08/10/2019 12:37 PM CDT Renewed medication [...] MICHAUD) Next scheduled visit: None Powered by [facility], Reference: [id number], 08/10/2019 5:31:42 AM CDT, Pool: MANUEL REFILL ([id number]) metoprolol succinate (TOPROL XL) 50 MG 24 [...] 85 mm Hg on 06/21/2019 Powered by [employer], Reference: [id number], 08/10/2019 5:31:42 AM CDT, Pool: MANUEL MOORE ([id number]) documented in this encounter Plan of Treatment Not on filedocumented as of this encounter Visit Diagnoses Diagnosis ASHD (arteriosclerotic heart disease) ([facility]) Coronary atherosclerosis of unspecified type of vessel, [place] or graft Hyperlipidemia LDL goal < 70 Other and unspecified hyperlipidemia Essential hypertension (HRC) Unspecified essential hypertension documented in this encounter Care Teams Director Of Physical Education Relationship Specialty Start Date End Date Gagandeep Michaud MD PCP - General 05/17/12 1415 [facility] [place] [address] Vane Zarate Psychiatrist Psychiatry 03/22/12 [facility] Mental [facility] Psychotherapist 08/04/17 [facility] Orthopedic Assistant 09/13/17 documented as of this encounter
--- OUTSIDE RECORDS SUMMARY | 2022-03-14 18:40 | XMS_ITS | Encounter Summary ---
:1970 Author Organization [facility] Address [address] [place] [address] Care Team Providers Name Role Phone Gagandeep Hinojosa MD Primary Care Provider Reason for Referral (Routine) - Closed Specialty Diagnoses / Procedures Referred By Contact Refer red To Contact Diagnoses Chest pain, unspecified type Zara Fox MD Procedures Outreach Nuclear Study [address] [place], [place] [address] Referral ID Status Reason Start Date Expiration Date Visits Requ ested Visits Authorized [id number] Closed 06/19/2019 09/17/2020 1 1 ISHING MANAGER Encounter Details Date Type Department Care Team Description 06/18/2019 Hospital Encounter Heart & Vascular Chest pain, unspecified Center Nuclear type (Primary Dx) Cardiology [address] [place] [address] Social History Tobacco Use Types [...] by mouth 0 12/2408/28/2019 MG capsule daily. [place] Carbonate 600 Take 600 mg by mouth [...] Vitamin D, Take 50,000 Units by 0 11/01/201805/27 Ergocalciferol, 35929 mouth. units CAPS documented as of this encounter Procedure Notes Zayra Jamison - 06/18/2019 12:00 PM CSTAssociated Order(s): OUTREACH NUCLEAR STUDY Results NM CARDIAC MPI STRESS TEST ( (Order [id number]) STRESS TEST PHARMACOLOGICAL ( (Order [id number]) Original Order Diagnosis: Chest pain [R07.9 (ICD-10-CM)] Chest pain, acute, nonspecific Chest pain, acute, nonspecific Reading Provider(s) Cliff Weinstein DO PACs images are not viewable in Aiming Link. See text report below. STRESS TEST PHARMACOLOGICALOrder: [id number] Status: Final result Visible to patient: No (Not Released) Next appt: None Dx: Chest pain Linked study orders: NM CARDIAC MPI STRESS TEST (Order: [id number]) Details Reading Physician Reading Date Result Priority [...] patient. Patient Information Patient Name Timur Krishnamurthy ([id number]) Sex Male ISHING MANAGER documented in this encounter Plan of Treatment Not on filedocumented as of this encounter Procedures Procedure Name Priority Date/Time Associated Diagnosis Comme nts OUTREACH NUCLEAR Routine 06/18/2019 12:00 PM Chest pain, Resu lts for this STUDY PUBLISHING MANAGER unspecified type procedure a re in the results section. documented in this encounter Results Outreach Nuclear Study (06/18/2019 12:00 PM PUBLISHING MANAGER) Narrative POCT - 06/18/2019 12:00 PM PUBLISHING MANAGER Zayra Jamison ? 06/20/2019 11:21 AM Results NM CARDIAC MPI STRESS TEST ( [id number]) (Order [id number]) STRESS TEST PHARMACOLOGICAL (Accession A [id number]) (Order [id number]) Original Order Diagnosis: Chest pain [R07.9 (ICD-10-CM)] ??Chest p ain, acute, nonspecific Chest pain, acute, nonspecific Reading Provider(s) Cliff Weinstein DO PACs images are not viewable in Aiming Link. See text report below. STRESS TEST PHARMACOLOGICALOrder: [id number] Status: Final result ?? Visible to patie nt: No (Not Released) Next appt: None Dx: Chest pain Linked study orders: NM CARDIAC MPI STRE SS TEST (Order: [id number]) Details Reading Physician Reading Date Result Pr [...] humphrey. Patient Information Patient Name Timur Krishnamurthy ([id number]) Sex Male Procedure Note Zayra Jamison M - 06/18/2019 12:[address] Results NM CARDIAC MPI STRESS TEST ( [id number]) (Order [id number]) STRESS TEST PHARMACOLOGICAL (Accession A [id number]) (Order [id number]) Original Order Diagnosis: Chest pain [R07.9 (ICD-10-CM)] Chest sesar n, acute, nonspecific Chest pain, acute, nonspecific Reading Provider(s) Cliff Weinstein DO PACs images are not viewable in Aiming Link. See text report below. STRESS TEST PHARMACOLOGICALOrder: [id number] Status: Final result Visible to patient: No (Not Released) Next appt: None Dx: Chest pain Linked study orders: NM CARDIAC MPI STRE SS TEST (Order: [id number]) Details Reading Physician Reading Date Result Pr iority Cliff Weinstein DO 06/18/2019 Routine Narrative & [...] This result is not viewable by the [facility]. Patient Information Patient Name Timur Krishnamurthy ([id number]) Sex Male Zara Fox MD PN CARDIAC SERVICES ORDERABL ES Performing Organization Address City/State/ZIP Code Phon e Number POCT documented in this encounter Visit Diagnoses Diagnosis Chest pain, unspecified type - Primary documented in this encounter Care Teams Snipper Relationship Specialty Start Date End Date Gagandeep Hinojosa MD PCP - General 05/17/[address] [place] [address] [place] [address] Vane Zarate Psychiatrsamantha Psychiatry 03/22/12 [facility] Psychotherapist 08/04/17 [facility] Hands Assembler 09/13/17 documented as of this encounter
--- OUTSIDE RECORDS SUMMARY | 2022-03-14 18:40 | XMS_ITS | Encounter Summary ---
:1970 Author Organization [facility] Address [address] [place] [address] Care Team Providers Name Role Phone Gagandeep Hinojosa MD Primary Care Provider Reason for Referral (Routine) - Closed Specialty Diagnoses / Procedures Referred By Contact Refer red To Contact Diagnoses Atrial fibrillation, unspecified type (HRC) Zara Fox MD Procedures OUTREACH ZIOPATCH RECORDER [address] [place], [place] [address] Referral ID Status Reason Start Date Expiration Date Visits Requ ested Visits Authorized [id number] Closed 07/12/2019 10/10/2020 1 1 Encounter Details Date Type Department Care Team Description 07/04/2019 Hospital Encounter Heart & Vascular Atria l fibrillation, Center unspecified typ e (HRC) Electrocardiogram, (Primary Dx) Holter, Event Record er [address] [employer] [place] [address] Social History Tobacco Use Types [...] use of insulin ALPRAZolam (XANAX) 1 5 07/26/2018 0605/2019 MG tablet amLODIPine (NORVASC) Take 1 Tablet by mouth 90 Tablet 3 12/04/2019 10 MG daily. tabletIndications: Essential hypertension (HRC) ammonium lactate Apply topically daily. 500 mL 11 018 03/17/2020 (LAC-HYDRIN) 12 % lotion atorvastatin (LIPITOR) Take 1 Tablet by mouth 90 Tablet 3 0 07/27/2018 08/10/2019 80 MG daily. tabletIndications: ASHD (arteriosclerotic heart disease) ([facility]), Hyperlipidemia with target LDL less [...] CDT unspecified type procedure a re in (HRC) the results section. documented in this encounter Results OUTREACH ZIOPATCH RECORDER (07/04/2019 11:25 AM CDT) Narrative POCT - 07/04/2019 11:25 AM CDT Zio XT Final Report for Timur Krishnamurthy Date of : [birth year] (49 yrs) Gender: Male Prescribing Clinician: Dr. Ofelia Fox Referring Clinician: Dr. Scar Hinojosa Managing Location: [facility] Primary Indication (I48.91): Unspecified atrial fibrillation Enrollment [...] Primary documented in this encounter Care Teams Metal Furniture Assembly Supervisor Relationship Specialty Start Date End Date Gagandeep Hinojosa MD PCP - General 05/17/12 1415 [facility] [place] [address] Vane Zarate Psychiatrist Psychiatry 03/22/12 [facility] Psychotherapist 08/04/17 [facility] Radiological Engineer 09/13/17 documented as of this encounter
--- OUTSIDE RECORDS SUMMARY | 2022-03-14 18:40 | XMS_ITS | Encounter Summary ---
:1970 Author Organization [facility] Address [address], [place] [address] Care Team Providers Name Role Phone Gagandeep Hinojosa MD Primary Care Provider Reason for Visit Reason Comments FOLLOW-UP,DIABETES Encounter Details Date Type Department Care Team Description 08/29/2019 Care Coord Phone Judy Luke R N FOLLOW-UP,DIABETES Medicine [address] [place] [address] [place] [address] [place] [address] [phone] Social History Tobacco Use Types Packs/Day Years [...] RN - 09/03/2019 2:01 PM CDT RN Engine Tester - Diabetes Follow-Up Current diabetes medication regimen: [...] was able to provide a few readings, butnone reflected his recent A1c result of 11.4% [...] requesting a return call. Please transfer to [phone]. documented in this encounter Plan of Treatment Not on filedocumented as of this encounter Visit Diagnoses Not on filedocumented in this encounter Care Teams Tableman Relationship Specialty Start Date End Date Gagandeep Hinojosa MD PCP - General 05/17/[address] [place] [address] Vane Zarate Psychiatrist Psychiatry 03/22/12 [facility] Mental Health Psychotherapist 08/04/17 [facility] Loading And Unloading Supervisor 09/13/17 documented as of this encounter
--- OUTSIDE RECORDS SUMMARY | 2022-03-14 18:40 | XMS_ITS | Encounter Summary ---
:1970 Author Organization [facility] Address [address] [place] [address] Care Team Providers Name Role Phone Gagandeep Hinojosa MD Primary Care Provider Reason for Visit Reason Comments HYPOGLYCEMIA Encounter Details Date Type Department Care Team Description 10/05/2019 Phone Visit Urgent Care [facility] cheriesd (Primary Dx); [place] Uncontrolled type 2 diabetes mellitus with complication, with long-term current use of insulin ([facility]) [address] [place] [address] [place], [place] [address] Social History Tobacco Use Types [...] documented in this encounter Care Teams Sales Development Representative Relationship Specialty Start Date End Date Gagandeep Hinojosa MD PCP - General 05/17/[address] [place], [place] [address] [address] Vane Zarate Psychiatrist Psychiatry 03/22/12 [facility] Psychotherapist 08/04/17 [facility] Core Inspector 09/13/17 documented as of this encounter
--- OUTSIDE RECORDS SUMMARY | 2022-03-14 18:40 | XMS_ITS | Encounter Summary ---
:1970 Author Organization [facility] Address [address] [place] [address] Care Team Providers Name Role Phone Gagandeep Hinojosa MD Primary Care Provider Reason for Visit Reason Onset Date Comments Refill 08/24/2019 Patient Calling Back 08/24/2019 Encounter Details Date Type Department Care Team Description 08/24/2019 Refill [facility] Gagandeep Hinojosa, Refil l; Patient Calling Medicine MD Back 1415 [facility] . [address] [place] [address] [place], [place] [id number] (Wo rk) Social History Tobacco Use Types [...] on filedocumented in this encounter Care Teams Live In Housekeeper Relationship Specialty Start Date End Date Gagandeep Hinojosa MD PCP - General 05/17/12 1415 [facility] [address] Vane Zarate Psychiatrist Psychiatry 11/28/12 [facility] Psychotherapist 08/04/17 [facility] Human Resources Technician 09/13/17 documented as of this encounter
--- OUTSIDE RECORDS SUMMARY | 2022-03-14 18:40 | XMS_ITS | Encounter Summary ---
:1970 Author Organization [facility] Address [address] [place] [address] Care Team Providers Name Role Phone Gagandeep Hinojosa MD Primary Care Provider Reason for Visit Reason Comments Medication Problems Encounter Details Date Type Department Care Team Description 09/10/2019 Nurse Triage [facility] Gagandeep Hinojosa, Medic ation Problems Medicine 1415 [facility] . 1415 [place] [address] [place] [address] [phone] (Wo rk) Social History Tobacco Use Types [...] 09/14/19 0658 Signed Please call pt. Continue Cogentin. Will address additional medication at next diabetes visit or in clinic with appointment separately at his discretion Brisa Camacho LPN - 09/14/2019 8:25 AM CDT Left message for patient to call back. Frontline/Patient Service Center (PSC), please warm transfer call to extension [facility] or triage to discuss. If [...] - Benztropine. Clinician Next Step: Route to [facility] to follow up Specific Request(s): 1. [...] to answer question Protocols used: MEDICATION QUESTION [id number] documented in this encounter Plan of Treatment Not on filedocumented as of this encounter Visit Diagnoses Not on filedocumented in this encounter Care Teams Sole Tier Relationship Specialty Start Date End Date Gagandeep Hinojosa MD PCP - General 05/17/12 89[address] [facility] [place] [address] Vane Zarate Psychiatrsamantha Psychiatry 03/22/12 [facility] Psychotherapist 08/04/17 [facility] Dimension Warehouse Supervisor 09/13/17 documented as of this encounter
--- OUTSIDE RECORDS SUMMARY | 2022-03-14 18:40 | XMS_ITS | Encounter Summary ---
:1970 Author Organization [facility] Address [address] [address] Care Team Providers Name Role Phone Gagandeep Hinojosa MD Primary Care Provider Reason for Referral Consult/Transfer Care (Routine) - Closed Specialty Diagnoses / Procedures Referred By Contact Refer red To Contact Diagnoses Type 2 diabetes mellitus with diabetic polyneuropathy, with long-term current use of insulin (HRC) Gagandeep Hinojosa MD [address] [facility] [place] [address] Referral ID Status Reason Start Date Expiration Date Visits Requ ested Visits Authorized [id number] Closed 08/28/2019 11/26/2020 1 1 Scheduling Instructions Your provider has recommended an appoint ment with [place] [facility]. You may call [phone] to schedule your appoi ntment. If you [...] Rubio MD Bipolar I disorder (HRC); [address] 1415 [facility] Tobacco use disorder; [place] [address] Mar[place] Drug-induced tremor; [phone] [place] Essential hyper tension; [address] Non-proliferative diabetic retinopathy ( [facility]); [phone] ASHD (arteriosc lerotic heart disease); (Work) Uncontrolled type 2 diabetes mellitus wi th hyperglycemia ([facility]); [phone] Diabetes calros montes with complication ([facility]); (Fax) [...] P athologist Signature Albumin, 351.2 mg/L 12/04/2019 [facility] Urine, Random 3:54 PM CDT LABORATORY Creatinine, 106 >20 mg/dL 12/04/2019 [facility] Urine, Random 3:54 PM CDT LABORATORY Albumin/Creati 331 (H) <30 mg/g 12/04/2019 [facility] nine Ratio, 3:54 PM CDT LABORATORY Urine, Random Specimen Anatomical Collection Method Collection Time Receive d Time (Source) Location / / Volume Laterality Urine Non-blood 12/04/2019 10:10 12/04/2019 Collection / AM CDT 10:10 AM CDT Unknown Gagandeep Hinojosa MD LAB_1 Performing Organization Address City/[facility] Phon e Number [facility] [address] [place] [address] (ABNORMAL) Lipid Panel and Direct LDL(If Needed) - in 3 months (12/04/2019 10:06 AM CDT) Patholo gist Method Time Signature Cholesterol 116 0 - 199 12/04/2019 [facility] mg/dL 4:03 PM CDT LABORATORY Triglyceride 137 <=149 12/04/2019 [facility] mg/dL 4:03 PM CDT LABORATORY HDL Cholesterol 35 (L) >=40 mg/dL 12/04/2019 [facility] 4:03 PM CDT LABORATORY LDL, Calculated 54 <130 mg/dL 12/04/2019 [facility] 4:03 PM CDT LABORATORY Non HDL Chol, 81 mg/dL 12/04/2019 [facility] Calculated 4:03 PM CDT LABORATORY Cholesterol/HDL 3.3 12/04/2019 [facility] Ratio 4:03 PM CDT LABORATORY Hours Fasting 12 12/04/2019 [place] 4:03 PM CDT LABORATORY Specimen Anatomical Collection Method / Collection Time Recei abimael Time (Source) Location / Volume Laterality Blood Venipuncture / 12/04/2019 10:06 0 Unknown AM CDT 10:06 AM CDT Gagandeep Hinojosa MD LAB_1 Performing Organization Address City/State/ZIP Code Phon e Number [facility] [address] [place] [address] [facility] [address] [place] [address], [place] Creatinine / GFR - in 3 months (12/04/2019 10:06 AM CDT) P athologist Signature Creatinine 0.80 0.73 - 12/04/2019 [facility] 1.18 mg/dL 4:03 PM CDT LABORATORY GFR, Estimated >60 >60 12/04/2019 [facility] mL/min/1.7 4:03 PM CDT LABORATORY 3m2 Specimen Anatomical Collection Method / Collection Time Recei abimael Time (Source) Location / Volume Laterality Blood Venipuncture / 12/04/2019 10:06 0 Unknown AM CDT 10:06 AM CDT Gagandeep Hinojosa MD LAB_1 Performing Organization Address [facility] Code Phon e Number [facility] [address] [place] [address] (ABNORMAL) POCT Glycosylated Hemoglobin (HB A1C) - in 3 months (12/04/2019 10:06 AM CDT) Patholo gist Method Time Signature Hemoglobin A1C 11.3 (H) <=5.6 % 12/04/2019 [place] (Rapid) 10:15 AM CDT LABORATORY Specimen Anatomical Collection Method / Collection Time Recei abimael Time (Source) Location / Volume Laterality Blood Venipuncture / 12/04/2019 10:06 0 Unknown AM CDT 10:06 AM CDT Narrative [facility] - 12/04/2019 10:15 A M CDT This Rapid A1c test is designed for charlotte toring patients with an established diagnosis of diabetes mellitus. This rapid method is not suitable to establish the initial diagnosis of diabetes mellitus. Performe d using Point of Care Instrumentation. Gagandeep Hinojosa MD LAB_1 Performing Organization Address [facility]/ZIP Code Phon e Number [facility] [address] [place] [address] [phone] documented in this encounter Visit Diagnoses Diagnosis [...] Coronary atherosclerosis of unspecified type of vessel, robinson or graft Uncontrolled type 2 diabetes mellitus [...] ([facility]) documented in this encounter Care Teams Supervisor Pullet Farm Relationship Specialty Start Date End Date Gagandeep Hinojosa MD PCP - General 05/17/12 [address] [facility] [place] [place] [address] Vane Zarate Psychiatrist Psychiatry 03/22/12 [facility] Health Psychotherapist 08/04/17 [facility] Undercollar Maker 09/13/17 documented as of this encounter
--- OUTSIDE RECORDS SUMMARY | 2022-03-14 18:40 | XMS_ITS | Encounter Summary ---
:1970 Author Organization [facility] Address [address] [place] [address] Care Team Providers Name Role Phone Gagandeep Michaud MD Primary Care Provider Reason for Visit Reason Onset Date Comments Refill Refill 09/10/2019 Encounter Details Date Type Department Care Team Description 09/10/2019 Refill [facility] Gagandeep Michaud MD Refill; Refill 1415 [facility] . 1415 [place] [address] [place], [place] [address] (Wo rk) Social History Tobacco Use Types [...] started: 02/26/2016 Last ordered by GAGANDEEP MICHAUD: 08/01/2018 (405 days ago) QTY: 6, Refills: [...] MICHAUD) Next scheduled visit: None Powered by xPeerient, Reference: [id number], 09/10/2019 12:30:20 PM CDT, Pool: MANUEL REFILL ([id number]) documented in this encounter Plan of Treatment Not on filedocumented as of this encounter Visit Diagnoses Diagnosis Uncontrolled type 2 diabetes mellitus wi th complication, with long-term current use of insulin documented in this encounter Care Teams Senior Electronics Technician Relationship Specialty Start Date End Date Gagandeep Michaud MD PCP - General 05/17/12 [address]15 [place] [address] Vane Zarate Psychiatrist Psychiatry 03/22/12 [facility] Psychotherapist 08/04/17 [facility] Mechanical Test Technician 09/13/17 documented as of this encounter
--- OUTSIDE RECORDS SUMMARY | 2022-03-14 18:40 | XMS_ITS | Encounter Summary ---
:1970 Author Organization [facility] Address [address], [place] [address] Care Team Providers Name Role Phone Gagandeep Hinojosa MD Primary Care Provider Reason for Visit Reason Comments FOLLOW-UP,DIABETES Encounter Details Date Type Department Care Team Description 09/10/2019 Care Coord Office Judy Luke RN FOLLOW-UP,DIABETES Visit [address] [place] [address] [place] [phone] [address] Social History Tobacco Use Types Packs/Day Years [...] RN - 09/10/2019 1:00 PM CDT RN Barker Operator Visit Pt: Timurcole Krishnamurthy Referred by: [...] has straight Medicare and Part D through [employer], so he is responsible for the 20% Medicare does not cover, which is expensive. Because his combined annual household income is over $75,000, Rustam is over income for [place] and [facility]. I still feel that Rustam would benefit [...] trying to eat more cheese sticks and Paraguayan or light yogurt instead. I reminded Rustam [...] Mental Health Case Management and therapy through [facility], but will need a new psychiatrist. Rustam would like to stay at [facility], if possible. We called [facility] together and were advised that the intake visit must be a video visit, but Rustam does not have the technology for a video visit. The pharmacy scheduler agrees to message some providers to see [...] filedocumented in this encounter Care Teams Transportation Engineer Relationship Specialty Start Date End Date Gagandeep Hinojosa MD PCP - General 05/17/12 [facility]5 [facility] [place] [address] Vane Zarate Psychiatrist Psychiatry 03/22/12 [facility] Psychotherapist 08/04/17 [facility] Airplane Inspector 09/13/17 documented as of this encounter
--- OUTSIDE RECORDS SUMMARY | 2022-03-14 18:40 | XMS_ITS | Encounter Summary ---
:1970 Author Organization [facility] Address [address], [place] [address] Care Team Providers Name Role Phone Gagandeep Hinojosa MD Primary Care Provider Reason for Visit Reason Comments FOLLOW-UP,DIABETES Encounter Details Date Type Department Care Team Description 10/10/2019 Care Coord Office Judy Luke RN FOLLOW-UP,DIABETES Visit [address] [place] [address] [place] [phone] [address] Social History Tobacco Use Types Packs/Day Years [...] RN - 10/10/2019 11:00 AM CDT RN Conversion Man Visit Pt: Timurcole Krishnamurthy Referred by: Gagandeep [...] unit for every 50 points over 200. Edwin states he has been using the correction [...] trying to eat more cheese sticks and Jamaican or light yogurt instead. I reminded Rustam [...] Mental Health Case Management and therapy through [facility]. Therefore, Rustam requested to cancel his [...] covered today: Correction Factor Hyperglycemia BG Monitoring [facility] Mental Health Edwin received verbal instructions and [...] on filedocumented in this encounter Care Teams Pierogi Maker Relationship Specialty Start Date End Date Gagandeep Hinojosa MD PCP - General 05/17/12 [facility] [place] [address] Vane Zarate Psychiatrist Psychiatry 03/22/12 [facility] Psychotherapist 08/04/17 [facility] Land Survey Technician 09/13/17 documented as of this encounter
--- OUTSIDE RECORDS SUMMARY | 2022-03-14 18:40 | XMS_ITS | Encounter Summary ---
:1970 Author Organization [facility] Address [address] [place] [address] Care Team Providers Name Role Phone Gagandeep Hinojosa MD Primary Care Provider Reason for Visit Reason Comments RESULTS, TEST Encounter Details Date Type Department Care Team Description 07/12/2019 Telephone [facility] Gagandeep Hinojosa MD RESULTS, TEST 1415 [facility] . 1415 [place] [address] [place] [address] [phone] (Wo rk) Social History Tobacco Use Types [...] filedocumented in this encounter Care Teams Supervisor Steno Pool Relationship Specialty Start Date End Date Gagandeep Hinojosa MD PCP - General 05/17/12 1415 [facility] [place] [address] Vane Zarate Psychiatrist Psychiatry 03/22/12 [facility] Mental [facility] Psychotherapist 08/04/17 [facility] Obstetrics Nurse Practitioner 09/13/17 documented as of this encounter
--- OUTSIDE RECORDS SUMMARY | 2022-03-14 18:40 | XMS_ITS | Encounter Summary ---
:1970 Author Organization [facility] Address [address], [place] [address] Care Team Providers Name Role Phone Gagandeep Hinojosa MD Primary Care Provider Reason for Visit Reason Comments NAIL PROBLEM Left great toenail injury Encounter Details Date Type Department Care Team Description 09/20/2019 Office Visit [facility] Antonio Felipe T raumatic avulsion of nail plate of toe, initial encounter (Primary Dx); MedSurg DPM Type 2 diabetes mellitus with peripheral neuropathy (HR) [address] [place] [address] [place], [place] [phone] [address] (Wo rk) Social History Tobacco Use Types [...] care from the wound care nurse in [place]. He does have shoes and inserts which she received at [facility]. He presents today for evaluation [...] fair amount of bleeding and presented to [place]. The chart note from that [...] unspecified type diabetes mellitus with hyperosmolarity, uncontrolled ([facility]) 12/11/2010 ??? Type II or unspecified type diabetes mellitus without mention of complication, uncontrolled ([facility]) 12/11/2010 Patient Active Problem List Diagnosis Date Noted ??? Non-proliferative diabetic retinopathy ([facility]) 05/02/2019 ??? Hyponatremia 01/16/2018 ??? Tinea versicolor 07/18/2015 ??? Tobacco use disorder ([facility]) 10/26/2012 ??? Anemia 05/02/2012 Overview Note: Anemia, unspecified ??? Microalbuminuria 02/04/2012 ??? ME, old ([facility]) 09/16/2011 ??? History of PTCA 09/16/2011 Overview Note: History of PTCA 04/2011 BMS RCA ??? Obesity, Class I, BMI 30-34.9 ([facility]) 09/16/2011 Overview Note: Body mass index is 31.16 kg/(m^2). ??? Hyperlipidemia with target LDL less than 70 ([facility]) 06/08/2011 Overview Note: Hyperlipidemia LDL goal < 70 ??? ASHD (arteriosclerotic heart disease) ([facility]) 05/04/2011 ??? Erectile dysfunction 01/22/2011 Overview Note: side effect Risperdal ??? Type 2 diabetes mellitus, uncontrolled ([facility]) 12/11/2010 Overview Note: Type II or unspecified type diabetes mellitus without mention of complication, uncontrolled ([facility]) ??? Dermatophytosis of body 09/04/2010 Overview Note: Tinea Corporis ??? Coronary atherosclerosis ([facility]) 12/22/2009 Overview Note: LW Modifier: mod RCA, negative nuclear stress test ; CAD ??? Nonspecific abnormal results of liver function study 12/22/2009 Overview Note: Liver Function Tests Abnormal ??? Bipolar I disorder (HRC) 09/15/2005 Overview Note: LW Onset: [id number] ; Bipolar I Dis OBJECTIVE: DP and [...] 2 diabetes mellitus with peripheral neuropathy (HRC) E11.42 PLAN: All outside records were reviewed. I discussed with the patient that he does not have a nail that is present. It appears from reading his initial note from [place] that the nail was loose and then the note 2 days later from [place] indicating that he had considerable bleeding from a traumatic nail avulsion. I discussed with the patient that I would like him to apply bacitracin and acovering for the next 1 week. If he does develop any type of redness, he will contact us immediately. He does get his nails trimmed at [place]. All questions answered. The patient was discharged ambulatory and in stable condition. No orders of the defined types were placed in this encounter. No orders of the defined types were placed in this encounter. (This note was created using voice recognition software and may contain some molder fitting errors) documented in this encounter Plan of Treatment Not on filedocumented as of this encounter Visit Diagnoses Diagnosis Traumatic avulsion of nail plate of toe, initial encounter - Primary Type 2 diabetes mellitus with peripheral neuropathy ([facility]) documented in this encounter Care Teams Electronic Wirer Relationship Specialty Start Date End Date Gagandeep Hinojosa MD PCP - General 05/17/12 1415 [facility] [place] [address] Vane Zarate Psychiatrsamantha Psychiatry 03/22/12 [facility] Psychotherapist 08/04/17 [facility] Senior Technical Writer 09/13/17 documented as of this encounter
--- OUTSIDE RECORDS SUMMARY | 2022-03-14 18:40 | XMS_ITS | Encounter Summary ---
:1970 Author Organization [facility] Address [address] [place] [address] Care Team Providers Name Role Phone Gagandeep Hinojosa MD Primary Care Provider Reason for Visit Reason Comments Post Hospital Discharge Follow Up Encounter Details Date Type Department Care Team Description 06/19/2019 Telephone [facility] Gagandeep Hinojosa, Post Hospital Discharge Medicine MD Follow Up 1415 [facility] . [address]15 [place] [address] [place] [address] [phone] (Wo rk) Social History Tobacco Use Types [...] follow up call completed. See doc flowsheet: [facility] for details. ILLING OPERATOR documented in this encounter Plan of Treatment Not on filedocumented as of this encounter Visit Diagnoses Not on filedocumented in this encounter Care Teams Acquisition Cost Estimator Relationship Specialty Start Date End Date Gagandeep Hinojosa MD PCP - General 05/17/12 1415 [facility] [place] [address] Vane Zarate Psychiatrist Psychiatry 03/22/12 [facility] Psychotherapist 08/04/17 [facility] Assembler Metal Building 09/13/17 documented as of this encounter
--- OUTSIDE RECORDS SUMMARY | 2022-03-14 18:40 | XMS_ITS | Encounter Summary ---
:1970 Author Organization [employer] Address [address] [place] [address] Care Team Providers Name Role Phone Gagandeep Michaud MD Primary Care Provider Reason for Visit Reason Onset Date Comments Refill 08/24/2019 risperiDONE (RISPERD AL) 3 MG tablet Encounter Details Date Type Department Care Team Description 08/24/2019 Refill [facility] Gagandeep Michaud, Refil l (risperiDONE Medicine MD (RISPERDAL) 3 MG tablet) 1415 [facility] . 1415 [place] [address] [place], [place] [address] (Wo rk) Social History Tobacco Use Types [...] Should be filled by Psychiatry Interface, Out [place] Prov Query - 08/24/2019 8:35 AM CDT [...] visit: 08/28/2019 (in Family Practice) Powered by [employer]Cloud, Reference: [id number], 08/24/2019 8:35:39 AM CDT, Pool: MANUEL MOORE ([id number]) documented in this encounter Plan of Treatment Not on filedocumented as of this encounter Visit Diagnoses Not on filedocumented in this encounter Care Teams Baking Factory Worker Relationship Specialty Start Date End Date Gagandeep Michaud MD PCP - General 05/17/12 [facility]5 [facility] KAT[place] Gerber [address] Vane Zarate Psychiatrsamantha Psychiatry 03/22/12 [facility] Psychotherapist 08/04/17 [facility] Computer Service Technician 09/13/17 documented as of this encounter
--- OUTSIDE RECORDS SUMMARY | 2022-03-14 18:40 | XMS_ITS | Encounter Summary ---
:1970 Author Organization [facility] Address [address] [place] [address] Care Team Providers Name Role Phone Gagandeep Michaud MD Primary Care Provider Reason for Visit Reason Onset Date Comments Refill 08/14/2019 busPIRone (BUSPAR) 1 0 MG tablet Encounter Details Date Type Department Care Team Description 08/14/2019 Refill [facility] Gagandeep Michaud, Rochelle l (busPIRone Medicine (BUSPAR) 10 MG tablet) 1415 [facility] . 1415 [place] [address] [place], [place] [address] (Wo rk) Social History Tobacco Use Types [...] 85 mm Hg on 06/21/2019 Powered by [employer]You, Reference: [id number], 08/14/2019 4:19:51 PM CDT, Pool: MANUEL LANDAILL ([id number]) documented in this encounter Plan of Treatment Not on filedocumented as of this encounter Visit Diagnoses Not on filedocumented in this encounter Care Teams It Risk And Assurance Manager Relationship Specialty Start Date End Date Gagandeep Michaud MD PCP - General 05/17/[address] [place] [address] KATIANA Gerber [address] Vane Zarate Psychiatrist Psychiatry 03/22/12 [facility] Mental Health Psychotherapist 08/04/17 [facility] Sales Representative Girls' Apparel 09/13/17 documented as of this encounter
--- OUTSIDE RECORDS SUMMARY | 2022-03-14 18:40 | XMS_ITS | Encounter Summary ---
:[address] [facility] Address [address], [place] [address] Care Team Providers Name Role Phone Gagandeep Hinojosa MD Primary Care Provider Reason for Visit Reason Comments FOLLOW-UP,DIABETES Encounter Details Date Type Department Care Team Description 10/03/2019 Care Coord Phone Judy Luke R N FOLLOW-UP,DIABETES Medicine [address] [place] [address] . [place] [address] [place] [address] [phone] Social History Tobacco Use Types Packs/Day Years Used Date Smoking Tobacco: Former Cigarettes 1 Quit : 08/21/2019 Smokeless Tobacco: Former Qu it: 10/25/2012 Comments: Smoking History Packs/day: Alcohol Use Standard Drinks/Week Comments No 0 (1 standard drink = 0.6 oz pure Alcoho lic Drinks/day: Amount:0; alcohol) Freq:Never; Sex Assigned at Date Recorded Not on file documented as of this encounter Nursing Notes Judy iPttman RN - 10/03/2019 4:32 PM CDT RN Export Traffic Department Manager - Diabetes Follow-Up Current diabetes medication [...] on filedocumented in this encounter Care Teams Wan Support Specialist Relationship Specialty Start Date End Date Gagandeep Hinojosa MD PCP - General 05/17/12 1505 [facility] KAT[place] Gerber [address] Vane Zarate Psychiatrsamantha Psychiatry 03/22/12 [facility] Psychotherapist 08/04/17 [facility] Aircraft Maintenance Technician 09/13/17 documented as of this encounter
--- OUTSIDE RECORDS SUMMARY | 2022-03-14 18:40 | XMS_ITS | Encounter Summary ---
:1970 Author Organization [employer] [facility] Address [address], [place] [address] Care Team Providers Name Role Phone Gagandeep Hinojosa MD Primary Care Provider Reason for Visit Reason Comments FOLLOW-UP,DIABETES Encounter Details Date Type Department Care Team Description 09/24/2019 Care Coord Office Judy Luke RN FOLLOW-UP,DIABETES Visit [address] [place] [address] [place], [place] [phone] [address] Social History Tobacco Use Types Packs/Day Years [...] encounter Progress Notes Judy Pittman RN - 09/24/2019 9:00 AM CDT Left message requesting a return call. Please transfer to [phone]. Unable to reach Rustam after multiple attempts and messages left. Provided contact information and encouraged to call back to review BG readings. documented in this encounter Plan of Treatment Not on filedocumented as of this encounter Visit Diagnoses Not on filedocumented in this encounter Care Teams Dungeon Master Relationship Specialty Start Date End Date Gagandeep Hinojosa MD PCP - General 05/17/12 1335 [facility] [place] Gerber [address] Vane Zarate Psychiatrist Psychiatry 03/22/12 [facility] Mental Health Psychotherapist 08/04/17 [facility] Locomotive Crane Engineer 09/13/17 documented as of this encounter
--- OUTSIDE RECORDS SUMMARY | 2022-03-14 18:40 | XMS_ITS | Encounter Summary ---
:1970 Author Organization [facility] Address [address] [place] [address] Care Team Providers Name Role Phone Gagandeep Hinojosa MD Primary Care Provider Reason for Visit Reason Comments LACERATION, TOES Encounter Details Date Type Department Care Team Description 09/14/2019 Nurse Triage [facility] Gagandeep Hinojosa, LACERATION, TOES [address] [facility] [address] [place] [address] [place] [address] (Wo rk) Social History Tobacco [...] Disposition ??? Torn toenail Protocols used: TOE [id number] documented in this encounter Plan of Treatment Not on filedocumented as of this encounter Visit Diagnoses Not on filedocumented in this encounter Care Teams Diabetes Solutions Specialist Relationship Specialty Start Date End Date Gagandeep Hinojosa MD PCP - General 05/17/12 1415 [facility] KATIANA Gerber [address] Vane Zarate Psychiatrist Psychiatry 03/22/12 [facility] Psychotherapist 08/04/17 [facility] Welder 2Nd Shift 09/13/17 documented as of this encounter
--- OUTSIDE RECORDS SUMMARY | 2022-03-14 18:40 | XMS_ITS | Encounter Summary ---
:1970 Author Organization [facility] Address [address] [place] [address] Care Team Providers Name Role Phone Gagandeep Hinojosa MD Primary Care Provider Reason for Visit Reason Comments FOLLOW-UP,DIABETES Encounter Details Date Type Department Care Team Description 10/08/2019 Care Coord Phone Judy Luke R N FOLLOW-UP,DIABETES Medicine [address] [place] [address] . [place] [address] [place] [address] [phone] Social History Tobacco Use Types Packs/Day Years [...] RN - 10/08/2019 2:44 PM CDT RN Burglar Alarm Assembler - Diabetes Follow-Up Current diabetes medication regimen: [...] medication arrived. The samples were entered into Pins and verified by Dr Foster. The medication is stored in the injection room refrigerator and damaris ilable for apple picking supervisor at his earliest convenience. Teach back method used to verify understanding. Shared plan: Continue current insulin and medication regimen, as prescribed. Record foods eaten prior to all BG readings >200. If preprandial BG is >200, add 1 unit for every 50 points over 200. mapping supervisor Tresiba samples at earliest convenience. Phone follow [...] Primary documented in this encounter Care Teams Market Research Lead Relationship Specialty Start Date End Date Gagandeep Hinojosa MD PCP - General 05/17/12 1415 [facility] KAT[place] Gerber [address] Vane Zarate Psychiatrsamantha Psychiatry 03/22/12 [facility] Mental Health Psychotherapist 08/04/17 [facility] Dowel Pointer 09/13/17 documented as of this encounter
--- OUTSIDE RECORDS SUMMARY | 2022-03-14 18:41 | XMS_ITS | Encounter Summary ---
:1970 Author Organization [facility] Address [address], [place] [address] Care Team Providers Name Role Phone Gagandeep Hinojosa MD Primary Care Provider Reason for Visit Reason Comments APPOINTMENT REQUEST Encounter Details Date Type Department Care Team Description 07/27/2018 Care Coord Phone Judy Luke R N APPOINTMENT REQUEST [address] . [place] Hernandez [address] [place] [phone] Social History Tobacco Use Types Packs/Day Years [...] Hinojosa: ?CARE COORDINATION - PRIMARY CARE CON* [#[id number]] ?Priority: Routine ??Class: [facility] Location ?Comment:New injectables vs Invokana ?Associated Diagnoses ?E11.65 Uncontrolled type 2 diabetes mellitus with hyperglycemia (HRC) ?Reason for referral? -> Difficulty managing conditions, treatments, or ? medications To Scheduling, please assist with appt. documented in this encounter Plan of Treatment Not on filedocumented as of this encounter Visit Diagnoses Not on filedocumented in this encounter Care Teams Rn Sane Relationship Specialty Start Date End Date Gagandeep Hinojosa MD PCP - General 05/17/[address] [place], [place] [address]KAT[place]NA Rodriguez [address] Vane Zarate Psychiatrist Psychiatry 03/22/12 [facility] Psychotherapist 08/04/17 [facility] Oracle Erp Architect 09/13/17 documented as of this encounter
--- OUTSIDE RECORDS SUMMARY | 2022-03-14 18:41 | XMS_ITS | Encounter Summary ---
:1970 Author Organization [facility] Address [address] [place] [address] Care Team Providers Name Role Phone Gagandeep Hinojosa MD Primary Care Provider Reason for Visit Reason Comments QUESTIONS, GENERAL Encounter Details Date Type Department Care Team Description 12/17/2018 Telephone [facility] Gagandeep Hinojosa, QUESTIONS, GENERAL [address] [facility] [address] [place] [address] [place] [address] (Wo rk) Social History Tobacco [...] appt is tomorrow. Confirmed 11:20 am at [facility] documented in this encounter Plan of Treatment Not on filedocumented as of this encounter Visit Diagnoses Not on filedocumented in this encounter Care Teams Political Science Faculty Member Relationship Specialty Start Date End Date Gagandeep Hinojosa MD PCP - General 05/17/12 1415 [facility] [place] [address] Vane Zarate Psychiatrist Psychiatry 03/22/12 [facility] Mental Health Psychotherapist 08/04/17 [facility] Gear Coding Machine Operator 09/13/17 documented as of this encounter
--- OUTSIDE RECORDS SUMMARY | 2022-03-14 18:41 | XMS_ITS | Encounter Summary ---
:1970 Author Organization [employer] Address [address] [place] [address] Care Team Providers Name Role Phone Gagandeep Hinojosa MD Primary Care Provider Reason for Visit Reason Comments Forms DMV Cough Productive cough X 4 days Encounter Details Date Type Department Care Team Description 05/02/2019 Office Visit Gagandeep Storm Type 2 d iabetes mellitus with neurological manifestations, uncontrolled (HR) (Primary Dx); Romario Rubio MD Uncontrolled type 2 diabetes mellitus wi th hyperglycemia (HRC); [address] terminal press operator current use of ins ulin (HRC); [place] [address] [address] Type 2 diabetes mellitus with diabetic p olyneuropathy, with long-term current use of insulin (HRC) [phone] K[place]NA VIGIL [address] Social History Tobacco Use Types Packs/Day Years [...] Comments Blood Pressure 99/59 05/02/2019 11:31 AM CONVEYOR MAINTENANCE MECHANIC Pulse 70 05/02/2019 11:31 AM CONVEYOR MAINTENANCE MECHANIC Temperature 38.2 ??C (100.8 ??F) 05/02/2019 11:31 AM CONVEYOR MAINTENANCE MECHANIC Respiratory Rate - - Oxygen Saturation - - Inhaled Oxygen Concentration - - Weight 92.4 kg (203 lb 12.8 oz) 05/02/2019 11:31 AM CONVEYOR MAINTENANCE MECHANIC Height - - Body Mass Index 29.24 07/27/2018 1:49 PM CDT documented in this encounter Progress Notes Gagandeep Hinojosa MD - 05/02/2019 11:00 AM CST SUBJECTIVE: 49 y.o. 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 He is due for [...] CAPSULE BY MOUTH EVERY DAY 0 ??? [place] Carbonate 600 MG capsule Take 600 mg [...] 1 Tablet by mouth. 01/16/2018: [facility] Re[facility] Sig: Take 1 tablet by [...] times a day. ??? Vitamin D, Ergocalciferol, 06583 units CAPS Take 50,000 Units by mouth. [...] 2 diabetes mellitus with neurological manifestations, uncontrolled ([facility]) E11.49 E11.65 2. Uncontrolled type 2 diabetes mellitus with hyperglycemia ([facility]) E11.65 Microalb/Creat Ratio POCT Glycosylated Hemoglobin (HB A1C) Lipid Panel and Direct LDL(If Needed) Creatinine / GFR 3. residential current use of insulin ([facility]) Z79.4 4. Type 2 diabetes mellitus with diabetic polyneuropathy, with long-term current use of insulin ([facility]) E11.42 Z79.4 PLAN: 1. He will return for a more formal exam when he is feeling better. His DMV form was completed. The patient was discharged ambulatory and in stable condition. Diabetes measures: A1c Due: 1 months Foot Exam: 1 month Eye exam: Patient will schedule Cholesterol: 1 month Electrolytes: 1 month UMAR: 1 month Aspirin: yes Tobacco: no EYOR MAINTENANCE MECHANIC documented in this encounter Plan of Treatment Not on filedocumented as of this encounter Results (ABNORMAL) Microalb/Creat Ratio (08/28/2019 2:10 PM CDT) athologist Signature Albumin, 265.4 mg/L 08/28/2019 [place] Urine, Random 5:06 PM CDT LABORATORY Creatinine, 49 >20 mg/dL 08/28/2019 [place] Urine, Random 5:06 PM CDT LABORATORY Albumin/Creati 542 (H) <30 mg/g 08/28/2019 [place] nine Ratio, 5:06 PM CDT LABORATORY Urine, Random Specimen Anatomical Collection Method Collection Time Receive d Time (Source) Location / / Volume Laterality Urine,random Non-blood 08/28/2019 2:10 PM 0 2:10 Collection / CDT PM CDT Unknown Gagandeep Hinojosa MD LAB_1 Performing Organization Address City/[facility]/ZIP Code Phon e Number [place] [facility] [address] [place] [address] (ABNORMAL) Creatinine / GFR (08/28/2019 2:06 PM CDT) [facility] Veodin Method Time Signature Creatinine 0.70 (L) 0.73 - 08/28/2019 [place] 1.18 mg/dL 5:02 PM CDT LABORATORY GFR, Estimated >60 >60 08/28/2019 [place] mL/min/1.7 5:02 PM CDT LABORATORY 3m2 GFR, Est If >60 >60 08/28/2019 [place] mL/min/1.7 5:02 PM CDT LABORATORY Puerto [place]ican 3m2 Specimen Anatomical Collection Method / Collection Time Recei abimael Time (Source) Location / Volume Laterality Blood Venipuncture / 08/28/2019 2:06 08/28/2019 2:06 Unknown PM CDT PM CDT Gagandeep Hinojosa MD LAB_1 Performing Organization Address City/[facility] Code Phon e Number [place] [facility] [address] [place] [address] (ABNORMAL) POCT Glycosylated Hemoglobin (HB A1C) (08/28/2019 2:06 PM CDT) Patholo gist Method Time Signature Hemoglobin A1C 11.4 (H) <=5.6 % 08/28/2019 [place] (Rapid) 2:15 PM CDT LABORATORY Specimen Anatomical Collection Method / Collection Time Recei abimael Time (Source) Location / Volume Laterality Blood Venipuncture / 08/28/2019 2:06 08/28/2019 2:06 Unknown PM CDT PM CDT Narrative [facility] - 08/28/2019 2:15 PM CDT This Rapid A1c test is designed for charlotte toring patients with an established diagnosis of diabetes mellitus. This rapid method is not suitable to establish the initial diagnosis of diabetes mellitus. Performe d using Point of Care Instrumentation. Gagandeep Hinojosa MD LAB_1 Performing Organization Address City/State/ZIP Code Phon e Number [facility] [address] [place] [phone] documented in this encounter Visit Diagnoses Diagnosis 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, uncontrolled - Primary Uncontrolled type 2 diabetes mellitus wi th hyperglycemia (HRC) residential current use of insulin (HRC) Encounter for long-term (current) use of insulin Type 2 diabetes mellitus with diabetic p olyneuropathy, with long-term current use of insulin (HRC) documented in this encounter Care Teams Machinery Mover Relationship Specialty Start Date End Date Gagandeep Hinojosa MD PCP - General 05/17/12 1415 [facility] [place] Gerber [address] Vane Zarate Psychiatrist Psychiatry 03/22/12 [facility] Psychotherapist 08/04/17 [facility] Porcelain Enameler 09/13/17 documented as of this encounter
--- OUTSIDE RECORDS SUMMARY | 2022-03-14 18:41 | XMS_ITS | Encounter Summary ---
:1970 Author Organization [facility] Address [address], [place] [address] Care Team Providers Name Role Phone Gagandeep Hinojosa MD Primary Care Provider Reason for Referral (Routine) - Closed Specialty Diagnoses / Procedures Referred By Contact Refer red To Contact Diagnoses LV dysfunction Gagandeep Hinojosa MD Procedures Echocardiogram 1415 [facility] [place] [address] Referral ID Status Reason Start Date Expiration Date Visits Requ ested Visits Authorized [id number] Closed 08/07/2018 11/06/2019 1 1 Reason for Visit Reason Comments Follow-up Test results Encounter Details Date Type Department Care Team Description 08/07/2018 Office Visit Gagandeep Storm LV dysfu nction Romario Rubio MD (Primary Dx) 1415 [facility] . [address] [place] [address] Av [phone] [place], [place] [address] Social History Tobacco Use [...] unspecified ??? Microalbuminuria 02/04/2012 ??? ID, old ([facility]) 09/16/2011 ??? [...] [place]) 09/15/2005 Overview Note: LW Onset: [id number] ; Bipolar I Dis FAMILY HISTORY OR [...] CAPSULE BY MOUTH EVERY DAY 0 ??? [place] Carbonate 600 MG capsule Take 600 mg [...] 1 Tablet by mouth. 01/16/2018: [facility] Received Sig: Take 1 tablet by [...] unspecified documented in this encounter Care Teams Rn Imaging Relationship Specialty Start Date End Date Gagandeep Hinojosa MD PCP - General 05/17/12 [facility]5 [place] [address] Vane Zarate Psychiatrsamantha Psychiatry 03/22/12 [facility] Psychotherapist 08/04/17 [facility] Magnet Placer 09/13/17 documented as of this encounter
--- OUTSIDE RECORDS SUMMARY | 2022-03-14 18:41 | XMS_ITS | Encounter Summary ---
:1970 Author Organization [facility] Address [address], [place] [address] Care Team Providers Name Role Phone Gagandeep Hinojosa MD Primary Care Provider Reason for Visit Reason Comments Patient Care Coordination Encounter Details Date Type Department Care Team Description 10/16/2018 Care Coord [facility] Deborah Rodrigues Patien t Care Phone Medicine [facility] Coordination [facility] [address] [place] [address] [phone] Social History Tobacco Use Types Packs/Day Years [...] are going. His phone went straight to [place], so I left a detailed [place]. [place] [phone] if he calls the clinic. documented in this encounter Plan of Treatment Not on filedocumented as of this encounter Visit Diagnoses Diagnosis Health custodial, active care coordinati on - Primary documented in this encounter Care Teams Baseball Pitcher Relationship Specialty Start Date End Date Gagandeep Hinojosa MD PCP - General 05/17/12 1415 [facility] [place] Gerber [address] Vane Zarate Psychiatrist Psychiatry 03/22/12 [facility] Psychotherapist 08/04/17 [facility] Baggage Smasher 09/13/17 documented as of this encounter
--- OUTSIDE RECORDS SUMMARY | 2022-03-14 18:41 | XMS_ITS | Encounter Summary ---
:1970 Author Organization [facility] Address [address] [place] [address] Care Team Providers Name Role Phone Gagandeep Michaud MD Primary Care Provider Reason for Visit Reason Comments Refill metFORMIN (GLUCOPHAGE) 500 M G tablet [Pharmacy Med Name: metFORMIN HCl 500 MG Oral Tablet] Encounter Details Date Type Department Care Team Description 05/21/2019 Refill [facility] Gagandeep Michaud, Rochelle l (metFORMIN Medicine MD (GLUCOPHAGE) [address] tablet [[place] [address] [place] [address] Name: metFORMIN HCl 500 [phone] (Wo rk) MG Oral Tablet]) Social History [...] TABLETS BY MOUTH TWICE DAILY WITH MEALS IFIED TOWER CLIMBER Interface, Out [employer] Camera & Image Prov Query - 05/21/2019 5:31 AM CST [...] (Sent to [facility]LL [facility]) Powered by [employer], Reference: [id number], 05/21/2019 5:31:48 AM ELKIN, Jaxon: MANUEL LANDAILL ([id number]) IFIED TOWER CLIMBER documented in this encounter Plan of Treatment Not on filedocumented as of this encounter Visit Diagnoses Diagnosis Uncontrolled type 2 diabetes mellitus wi thout complication, without long-term current use of insulin documented in this encounter Care Teams Confectionery Maker Relationship Specialty Start Date End Date Gagandeep Michaud MD PCP - General 05/17/12 2915 [facility] [place] Gerber [address] Vane Zarate Psychiatrist Psychiatry 03/22/12 [facility] Mental [facility] Psychotherapist 08/04/17 [facility] Collection Teller 09/13/17 documented as of this encounter
--- OUTSIDE RECORDS SUMMARY | 2022-03-14 18:41 | XMS_ITS | Encounter Summary ---
:[address] [facility] Address [address] [place] [address] Care Team Providers Name Role Phone Gagandeep Hinojosa MD Primary Care Provider Reason for Visit Reason Comments Patient Care Coordination Encounter Details Date Type Department Care Team Description 06/11/2019 Care Coord [facility] Deborah Rodrigues Patien t Care Phone Medicine [facility] Coordination [facility]5 [address] [place] [address] [place] [address] [phone] Social History Tobacco Use Types Packs/Day Years [...] Rodrigues LICSW - 06/11/2019 1:25 PM CST Assurance Engineer - Phone Call Contact with: Rustam [...] with plan of care and follow up. EWATER TREATMENT PLANT CHEMIST documented in this encounter Plan of Treatment Not on filedocumented as of this encounter Visit Diagnoses Diagnosis Health nursing home, active care coordinati on - Primary documented in this encounter Care Teams Meter Repair Shop Supervisor Relationship Specialty Start Date End Date Gagandeep Hinojosa MD PCP - General 05/17/12 [facility] [place] Gerber [address] Vane Zarate Psychiatrist Psychiatry 03/22/12 [facility] Mental Health Psychotherapist 08/04/17 [facility] Inside Sales Administrator 09/13/17 documented as of this encounter
--- OUTSIDE RECORDS SUMMARY | 2022-03-14 18:41 | XMS_ITS | Encounter Summary ---
:1970 Author Organization [facility] Address [address], [place] [address] Care Team Providers Name Role Phone Gagandeep Hinojosa MD Primary Care Provider Reason for Visit Reason Comments DIABETES EDUCATION Encounter Details Date Type Department Care Team Description 08/01/2018 Care Coord Office Judy Luke RN DIABETES EDUCATION Visit [address] . [place] [address] K[place] VELAZQUEZ [phone] [id number] Social History Tobacco Use Types Packs/Day Years [...] RN - 08/01/2018 1:00 PM CDT RN Environmental Officer Visit Pt: Timur Krishnamurthy Referred by: [...] been unable to work [facility] [employer] [facility] summer. Rustam reports he has been connected with [employer], a resource provided by his therapist, that [...] Finance, Emotional and Transportation. BG Goals: Health Alf Lab Goal <7 [...] SMBG tid as directed, record readings. RN Environmental Officer as needed for questions. Scheduled follow up [...] insulin documented in this encounter Care Teams Veterinary Milk Specialist Relationship Specialty Start Date End Date Gagandeep Hinojosa MD PCP - General 05/17/12 7[address] [facility] [place] [address]269 Vane Zarate Psychiatrsamantha Psychiatry 03/22/12 [facility] Mental [facility] Psychotherapist 08/04/17 [facility] Trimmer Loader 09/13/17 documented as of this encounter
--- OUTSIDE RECORDS SUMMARY | 2022-03-14 18:41 | XMS_ITS | Encounter Summary ---
:1970 Author Organization [facility] Address [address] [place] [address] Care Team Providers Name Role Phone Gagandeep Hinojosa MD Primary Care Provider Reason for Visit Reason Comments MANTOUX/PPD READ Encounter Details Date Type Department Care Team Description 06/14/2019 Nursing Visit [facility] Encounter for PPD skin Medicine test reading (Primary 1415 [facility] . Dx) [place] [address] Social History Tobacco Use Types Packs/Day Years [...] imary documented in this encounter Care Teams Road Contractor Relationship Specialty Start Date End Date Gagandeep Hinojosa MD PCP - General 05/17/12 1415 [facility] [place] [address] Vane Zarate Psychiatrist Psychiatry 03/22/12 [facility] Psychotherapist 08/04/17 [facility] Director Of Rooms 09/13/17 documented as of this encounter
--- OUTSIDE RECORDS SUMMARY | 2022-03-14 18:41 | XMS_ITS | Encounter Summary ---
:1970 Author Organization [facility] Address [address] [place] [address] Care Team Providers Name Role Phone Gagandeep Hinojosa MD Primary Care Provider Reason for Visit Reason Comments Post Hospital Discharge Follow Up Encounter Details Date Type Department Care Team Description 12/22/2018 Telephone [facility] Gagandeep Hinojosa, Post Hospital Discharge Medicine MD Follow Up 1415 [facility] . [address] [place] [address] [place] [address] [phone] (Wo rk) Social History Tobacco Use Types [...] message to call back to nurse line #[phone] Aniyah Guillen - 12/22/2018 11:48 AM CDT Pt returning call. Told him about message below and informed him he will be getting a call back Danelle Garcia RN - 12/22/2018 11:36 AM CDT Called patient for post discharge follow up, no answer. Unable to leave voicemail for patient, will attempt to call patient again. Admitted to [facility] 12/20 for intentional acute drug overdose. No new meds. Stopped buspirone, quetiapine, and risperidone. Has f/u appt 12/26. documented in this encounter Plan of Treatment Not on filedocumented as of this encounter Visit Diagnoses Not on filedocumented in this encounter Care Teams System Support Developer Relationship Specialty Start Date End Date Gagandeep Hinojosa MD PCP - General 05/17/12 [facility]5 [facility] [place] [address] Vnae Zarate Psychiatrist Psychiatry 03/22/12 [facility] Mental Health Psychotherapist 08/04/17 [facility] Pump Installer 09/13/17 documented as of this encounter
--- OUTSIDE RECORDS SUMMARY | 2022-03-14 18:41 | XMS_ITS | Encounter Summary ---
:1970 Author Organization [facility] Address [address] [place] [address] Care Team Providers Name Role Phone Gagandeep Hinojosa MD Primary Care Provider Reason for Visit Reason Comments Pharmacy Encounter Details Date Type Department Care Team Description 08/02/2018 Telephone [facility] Gagandeep Hinojosa MD Pharmacy 1415 [facility] . [address] [place] [address] [place] [address] [phone] (Wo rk) Social History Tobacco Use Types [...] VM. Phone number left if any questions. Gagandeep Hinojosa MD - 08/07/2018 3:16 PM CDT Novolin R dose in 16 units daily. Call pharmacy Laureen Woody, RN - 08/04/2018 9:17 AM CDT Spoke [...] on filedocumented in this encounter Care Teams Irrigation Teacher Relationship Specialty Start Date End Date Gagandeep Hinojosa MD PCP - General 05/17/12 1415 [facility] [place] [address] Vane Zarate Psychiatrist Psychiatry 03/22/12 [facility] Psychotherapist 08/04/17 [facility] Clinical Operations Manager 09/13/17 documented as of this encounter
--- OUTSIDE RECORDS SUMMARY | 2022-03-14 18:41 | XMS_ITS | Encounter Summary ---
:1970 Author Organization [facility] Address [address] [place] [address] Care Team Providers Name Role Phone Gagandeep Hinojosa MD Primary Care Provider Reason for Visit Reason Comments Follow-up Encounter Details Date Type Department Care Team Description 06/11/2019 Office Visit [facility] Gagandeep Hinojosa for work capability assessment (Primary Dx); Romario Rubio MD Screening for tuberculosis; [address] 1415 [facility] [place] [address] Ave [phone] [place], [place] [address] Social History Tobacco Use [...] Comments Blood Pressure 137/80 06/11/2019 1:00 PM TEAM ASSEMBLY LINE MACHINE OPERATOR Pulse 95 06/11/2019 1:00 PM TEAM ASSEMBLY LINE MACHINE OPERATOR Temperature - - Respiratory Rate - - Oxygen Saturation - - Inhaled Oxygen Concentration - - Weight 93.9 kg (207 lb) 06/11/2019 1:00 PM TEAM ASSEMBLY LINE MACHINE OPERATOR Height - - Body Mass Index 29.7 [...] although he reports his psychiatrist is nearing group home. He has had significant psychiatric breaks including bipolar dissociations, etc. and I would be reluctant to modify his medications. PROBLEM LIST: Patient Active Problem List Diagnosis Date Noted ??? Non-proliferative diabetic retinopathy ([facility]) 05/02/2019 ??? Hyponatremia 01/16/2018 ??? Tinea versicolor 07/18/2015 ??? Tobacco use disorder ([facility]) 10/26/2012 ??? Anemia 05/02/2012 Overview Note: Anemia, unspecified ??? Microalbuminuria 02/04/2012 ??? HI, old ([facility]) 09/16/2011 ??? History of PTCA 09/16/2011 Overview Note: History of PTCA 04/2011 BMS RCA ??? Obesity, Class I, BMI 30-34.9 ([facility]) 09/16/2011 Overview Note: Body mass index is 31.16 kg/(m^2). ??? Hyperlipidemia with target LDL less than 70 ([facility]) 06/08/2011 Overview Note: Hyperlipidemia LDL goal < 70 ??? ASHD (arteriosclerotic heart disease) ([facility]) 05/04/2011 ??? Erectile dysfunction 01/22/2011 Overview Note: side effect Risperdal ??? Type 2 diabetes mellitus, uncontrolled ([facility]) 12/11/2010 Overview Note: Type II or unspecified type diabetes mellitus without mention of complication, uncontrolled ([facility]) ??? Dermatophytosis of body 09/04/2010 Class: Historical Overview Note: Tinea Corporis ??? Coronary atherosclerosis ([facility]) 12/22/2009 Overview Note: LW Modifier: mod RCA, negative nuclear stress test ; CAD ??? Nonspecific abnormal results of liver function study 12/22/2009 Overview Note: Liver Function Tests Abnormal ??? Bipolar I disorder ([facility]) 09/15/2005 Overview Note: LW Onset: 46Khx06 ; Bipolar I Dis FAMILY HISTORY OR [...] CAPSULE BY MOUTH EVERY DAY 0 ??? [place] Carbonate 600 MG capsule Take 600 mg [...] 1 Tablet by mouth. 01/16/2018: Received from: [facility] Received Sig: Take 1 tablet by [...] times a day. ??? Vitamin D, Ergocalciferol, 13706 units CAPS Take 50,000 Units by mouth. [...] regard to medication management of his tremor. ASSEMBLY LINE MACHINE OPERATOR documented in this encounter Nursing Notes Diana Zambrano LPN - 06/11/2019 1:00 PM CST Pt refused immunizations ASSEMBLY LINE MACHINE OPERATOR documented in this encounter Plan of Treatment Not on filedocumented as of this encounter Procedures Procedure Name Priority Date/Time Associated Diagnosis Comme nts TB SKIN TEST (PPD) Routine 06/14/2019 10:53 Screening for Resu lts for this AM TEAM ASSEMBLY LINE MACHINE OPERATOR tuberculosis procedure are i n the results section. documented in this encounter Results TB SKIN TEST (PPD) (06/14/2019 10:53 AM TEAM ASSEMBLY LINE MACHINE OPERATOR) P athologist Signature TB Skin Test 0.0 [...] remor documented in this encounter Care Teams Component Inspector Relationship Specialty Start Date End Date Gagandeep Hinojosa MD PCP - General 05/17/12 [address] [place] [address] Vane Zarate Psychiatrsamantha Psychiatry 03/22/12 [facility] Health Psychotherapist 08/04/17 [facility] Decal Cutter 09/13/17 documented as of this encounter
--- OUTSIDE RECORDS SUMMARY | 2022-03-14 18:41 | XMS_ITS | Encounter Summary ---
:1970 Author Organization [facility] Address [address] [place] [address] Care Team Providers Name Role Phone Gagandeep Hinojosa MD Primary Care Provider Reason for Visit Reason Comments Lab Questions Encounter Details Date Type Department Care Team Description 12/11/2018 Telephone [facility] Gagandeep Hinojosa MD Lab Questions 1415 [facility] . [address] [place] [address] [place] [address] [phone] (Wo rk) Social History Tobacco Use Types [...] (Advise caller/patient can view test results in [facility], if enrolled) What test are you calling about? A1C from 11/28/18. Primary Emergency Medicine: Gagandeep Hinojosa MD Who ordered the test? (include first & last name) Gagandeep Hinojosa MD When and where was the test done? 11/28/18 - [facility] Additional comments (related to the above concern): [...] on filedocumented in this encounter Care Teams Pulpwood Dealer Relationship Specialty Start Date End Date Gagandeep Hinojosa MD PCP - General 05/17/12 [facility] [address] Vane Zarate Psychiatrsamantha Psychiatry 03/22/12 [facility] Psychotherapist 08/04/17 [facility] Life Insurance Salesperson 09/13/17 documented as of this encounter
--- OUTSIDE RECORDS SUMMARY | 2022-03-14 18:41 | XMS_ITS | Encounter Summary ---
:1970 Author Organization [facility] Address [address] [place] [address] Care Team Providers Name Role Phone Gagandeep Hinojosa MD Primary Care Provider Reason for Visit Reason Comments Post Hospital Discharge Follow Up Encounter Details Date Type Department Care Team Description 07/31/2018 Telephone [facility] Gagandeep Hinojosa, Post Hospital Discharge Medicine MD Follow Up 1415 [facility] . [address] [place] [address] [place], [place] [address] (Wo rk) Social History Tobacco Use Types [...] on filedocumented in this encounter Care Teams Inspector Insulation Relationship Specialty Start Date End Date Gagandeep Hinojosa MD PCP - General 05/17/12 1415 [facility] [place] [address] Vane Zarate Psychiatrist Psychiatry 03/22/12 [facility] Mental Health Psychotherapist 08/04/17 [facility] Industrial Safety And Health Manager 09/13/17 documented as of this encounter
--- OUTSIDE RECORDS SUMMARY | 2022-03-14 18:41 | XMS_ITS | Encounter Summary ---
:1970 Author Organization [facility] Address [address] [place] [address] Care Team Providers Name Role Phone Gagandeep Hinojosa MD Primary Care Provider Encounter Details Date Type Department Care Team Description 07/27/2018 Lab Visit [place] [facility] Uncontrolled type [address] mellitus with hyperglycemia [place] [address] ([facility]) [phone] Social History Tobacco Use Types Packs/Day Years [...] Hemoglobin (HB A1C) (07/27/2018 2:02 PM CDT) [facility] gist Method Time Signature Hemoglobin A1C 10.9 (H) <=5.6 % 07/27/2018 [place] (Rapid) 2:15 PM CDT LABORATORY Specimen Anatomical Collection Method / Collection Time Recei abimael Time (Source) Location / Volume Laterality Blood Venipuncture / 07/27/2018 2:02 07/27/2018 2:03 Unknown PM CDT PM CDT Narrative [place] [facility] - 07/27/2018 2:15 PM CDT This Rapid A1c test is designed for charlotte toring patients with an established diagnosis of diabetes mellitus. This rapid method is not suitable to establish the initial diagnosis of diabetes mellitus. Performe d using Point of Care Instrumentation. Gagandeep Hinojosa MD LAB_1 Performing Organization Address City/State/ZIP Code Phon e Number [place] [facility] [address] [place] [address] documented in this encounter Visit Diagnoses Diagnosis Uncontrolled type 2 diabetes mellitus wi th hyperglycemia ([facility]) documented in this encounter Care Teams Machine Stonecutter Relationship Specialty Start Date End Date Gagandeep Hinojosa MD PCP - General 05/17/[address] [place] [address] Vane Zarate Psychiatrist Psychiatry 03/22/12 [facility] Psychotherapist 08/04/17 [facility] Collections Specialist 09/13/17 documented as of this encounter
--- OUTSIDE RECORDS SUMMARY | 2022-03-14 18:41 | XMS_ITS | Encounter Summary ---
:1970 Author Organization [facility] Address [address] [place] [address] Care Team Providers Name Role Phone Gagandeep Hinojosa MD Primary Care Provider Reason for Visit Reason Comments Back Pain Lower left back Pain X 1 day Encounter Details Date Type Department Care Team Description 10/13/2018 Office Visit Gagandeep Storm le ft-sided low back pain without sciatica (Primary Dx); Romario Rubio MD Marital conflict [facility]15 [facility] . [address] [place] [address] [address] [phone] [place], [place] [address] Social History Tobacco Use [...] unspecified ??? Microalbuminuria 02/04/2012 ??? [place], old 09/16/2011 ??? History of PTCA 09/16/2011 [...] disorder ([facility]) 09/15/2005 Overview Note: LW Onset: [id number] ; Bipolar I Dis FAMILY HISTORY OR [...] CAPSULE BY MOUTH EVERY DAY 0 ??? [place] Carbonate 600 MG capsule Take 600 mg [...] 1 Tablet by mouth. 01/16/2018: Received from: [facility] Received Sig: Take 1 tablet by [...] unspecified documented in this encounter Care Teams Shift Mgr Relationship Specialty Start Date End Date Gagandeep Hinojosa MD PCP - General 05/17/12 [facility]5 [place] [address] Vane Zarate Psychiatrsamantha Psychiatry 03/22/12 [facility] Psychotherapist 08/04/17 [facility] Gold Frame Assembler 09/13/17 documented as of this encounter
--- OUTSIDE RECORDS SUMMARY | 2022-03-14 18:41 | XMS_ITS | Encounter Summary ---
:1970 Author Organization [employer] Address [address], [place] [address] Care Team Providers Name Role Phone Gagandeep Hinojosa MD Primary Care Provider Reason for Visit Reason Comments Mental Health Concerns Encounter Details Date Type Department Care Team Description 11/03/2018 Care Coord [facility] Deborah Rodrigues, Mental Health Phone Medicine [facility] Concerns [address] [place] 1415 [facility]. [facility] [place] [address] [place] [address] [phone] Social History Tobacco Use Types Packs/Day Years [...] Diagnosis:??Bipolar I Disposition:??Home, self care ?? Needs [facility] follow-up with PCP and care coordination. Have reached out several times, but have not gotten a return call. documented in this encounter Plan of Treatment Not on filedocumented as of this encounter Visit Diagnoses Diagnosis Health mcfp, active care coordinati on - Primary documented in this encounter Care Teams 4 H Youth Development Specialist Relationship Specialty Start Date End Date Gagandeep Hinojosa MD PCP - General 05/17/12 1415 [facility] [address] Vane Zarate Psychiatrist Psychiatry 03/22/12 [facility] Psychotherapist 08/04/17 [facility] Weigher And Crusher 09/13/17 documented as of this encounter
--- OUTSIDE RECORDS SUMMARY | 2022-03-14 18:41 | XMS_ITS | Encounter Summary ---
:1970 Author Organization [facility] Address [address] [facility] [place] [address] Care Team Providers Name Role Phone Gagandeep Hinojosa MD Primary Care Provider Reason for Visit Reason Comments Diabetes Rash chest X 2 months Encounter Details Date Type Department Care Team Description 12/18/2018 Office Visit Gagandeep Storm ve rsicolor (Primary Dx); Romario Rubio MD Essential hypertension; [address] [place] 1415 [facility] Uncontro lled type 2 diabetes mellitus without complication, without long-term current use of insulin ([facility]); Ave. 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 [place] Carbonate 600 MG capsule Take 600 mg by mouth daily at bedtime. 01/16/2018: Received from: External Pharmacy Received Sig: TAKE ONE CAPSULE BY MOUTH AT BEDTIME 0 ??? metoprolol succinate (TOPROL XL) 50 MG 24 hour release tablet Take 1 Tablet by mouth daily. 90 Tablet 1 ??? multivitamin (THERAGRAN) tablet Take 1 Tablet by mouth. 01/16/2018: Received from: [facility] Received Sig: Take 1 tablet [...] times a day. ??? Vitamin D, Ergocalciferol, 27687 units CAPS Take 50,000 Units by mouth. [...] complication, without long-term current use of insulin ([facility]) E11.65 insulin pen needle (BD ULTRAFINE JANET) 32G X 4 MM metFORMIN (GLUCOPHAGE) 500 MG tablet 4. Type 2 diabetes mellitus with neurological manifestations, uncontrolled ([facility]) E11.49 E11.65 5. Tobacco use disorder ([facility]) F17.200 PLAN: 1. Continue to [...] 2 diabetes mellitus wi th hyperglycemia ([facility]) watermaster current use of insulin ([facility]) Encounter for long-term (current) use of insulin Type 2 diabetes mellitus without complic ation, with long-term current use of insulin ([facility]) Hyperlipidemia, unspecified hyperlipidem ia type documented in this encounter Care Teams Operations Scheduler Relationship Specialty Start Date End Date Gagandeep Hinojosa MD PCP - General 05/17/12 1415 [facility] [place] [address] Vane Zarate Psychiatrist Psychiatry 03/22/12 [facility] Psychotherapist 08/04/17 [facility] Managing Consultant Clinical Professor 09/13/17 documented as of this encounter
--- OUTSIDE RECORDS SUMMARY | 2022-03-14 18:41 | XMS_ITS | Encounter Summary ---
:1970 Author Organization [employer] Address [address] [place] [address] Care Team Providers Name Role Phone Gagandeep Hinojosa MD Primary Care Provider Reason for Referral (Routine) - Closed Specialty Diagnoses / Procedures Referred By Contact Refer red To Contact Diagnoses Chest pain at rest Zara Fox MD Procedures Outreach Nuclear Study [address] [place], [place] [address] Referral ID Status Reason Start Date Expiration Date Visits Requ ested Visits Authorized [id number] Closed 08/16/2018 11/15/2019 1 1 Encounter Details Date Type Department Care Team Description 08/04/2018 Hospital Encounter Heart & Vascular Chest pain at rest Center Nuclear (Primary Dx) Cardiology [address] [facility] [place] [address] Social History Tobacco Use Types [...] MG daily. tabletIndications: ASHD (arteriosclerotic heart disease) ([facility]), Hyperlipidemia with target LDL less than 70 ([facility]) blood glucose (ONE Use to test [...] by mouth 0 12/2408/28/2019 MG capsule daily. [place] Carbonate 600 Take 600 mg by mouth [...] NM CARDIAC MPI STRESS TEST ( (Order [id number]) STRESS TEST PHARMACOLOGICAL ( (Order [id number]) Original Order Diagnosis: Chest pain at rest [R07.9 (ICD-10-CM)] Chest pain at rest [R07.9 (ICD-10-CM)] Reading Provider(s) Juan Daniel Caba MD PACs images are not viewable in tibdit Link. See text report below. 08/20/2018 4:54 [...] presence of left ventricular dysfunction. Juan Daniel aCba M.D. REF:njd Lab and Collection STRESS TEST PHARMACOLOGICAL - 08/04/2018 Result History STRESS TEST PHARMACOLOGICAL on 08/20/2018 Hard Copy Result Report Open Hard Copy Results Report Patient Release Status: This result is not viewable by the patient. Patient Information Patient Name Timur Krishnamurthy ([id number]) Sex Male documented in this encounter Plan [...] PN POCT - 08/04/2018 11:59 PM CDT Helen Reynolds ? 08/23/2018 ??3:57 PM Results NM CARDIAC MPI STRESS TEST ( [id number]) (Order [id number]) STRESS TEST PHARMACOLOGICAL (Accession A [id number]) (Order [id number]) Original Order Diagnosis: Chest pain at rest [R07.9 (ICD-10-CM)] Chest pain at rest [R07.9 (ICD-10-CM)] ? ? Reading Provider(s) Juan Daniel Caba MD PACs images are not viewable in tibdit Link. See text report below. 08/20/2018 4:54 [...] result is not [facility]. Patient Information Patient Name Timur Krishnamurthy ([id number]) Sex Male Procedure Note Gail Helen - 08/04/2018 11:59 PM CD T Results NM CARDIAC MPI STRESS TEST ( [id number]) (Order [id number]) STRESS TEST PHARMACOLOGICAL (Accession A [id number]) (Order [id number]) Original Order Diagnosis: Chest pain at rest [R07.9 (ICD-10-CM)] Chest pain at rest [R07.9 (ICD-10-CM)] Reading Provider(s) Juan Daniel Caba MD PACs images are not viewable in tibdit Link. See text report below. 08/20/2018 4:54 [...] confirm the presence of left ventricular dysfunction. Jua nDaniel Caba M.D. REF:njd Lab and Collection STRESS TEST PHARMACOLOGICAL - 08/04/2018 Result History STRESS TEST PHARMACOLOGICAL on 08/20/2018 Hard Copy Result Report Open Hard Copy Results Report Patient Release Status: This result is not viewable by the [facility]. Patient Information Patient Name Timur Krishnamurthy ([id number]) Sex Male Zara Fox MD PN CARDIAC SERVICES ORDERABL ES Performing Organization Address City/State/ZIP Code Phon e Number POCT PN POCT documented in this encounter Visit Diagnoses Diagnosis Chest pain at rest - Primary Chest pain, unspecified documented in this encounter Care Teams Manager Track Relationship Specialty Start Date End Date Gagandeep Hinojosa MD PCP - General 05/17/12 [facility] [place] [address] Vane Zarate Psychiatrsamantha Psychiatry 03/22/12 [facility] Psychotherapist 08/04/17 [facility] Call Or Contact Centre Operator 09/13/17 documented as of this encounter
--- OUTSIDE RECORDS SUMMARY | 2022-03-14 18:41 | XMS_ITS | Encounter Summary ---
:1970 Author Organization [employer] Address [address] [place] [address] Care Team Providers Name Role Phone Gagandeep Michaud MD Primary Care Provider Reason for Visit Reason Comments Refill amLODIPine (NORVASC) 10 MG t ablet [Pharmacy Med Name: AMLODIPINE 10MG TAB] Encounter Details Date Type Department Care Team Description 09/28/2018 Refill Gagandeep Storm Refil l (amLODIPine Medicine (NORVASC) 10 MG tablet [address] [Pharm[place] [address] [place] [address] AMLODIPINE 10MG TAB]) [phone] (Wo rk) Social History Tobacco Use Types [...] for short term. ?? Please advise if adjunct faculty for medical terminology supply is appropriate ?? Last qualifying visit: [...] 81 mm Hg on 08/07/2018 Powered by [employer], Reference: [id number], 09/28/2018 9:45:25 AM CDT, Pool: MANUEL MOORE ([id number]) documented in this encounter Plan of Treatment Not on filedocumented as of this encounter Visit Diagnoses Diagnosis Essential hypertension (HRC) Unspecified essential hypertension Uncontrolled type 2 diabetes mellitus wi thout complication, without long-term current use of insulin documented in this encounter Care Teams Cleaner Wall Relationship Specialty Start Date End Date Gagandeep Michaud MD PCP - General 05/17/12 14[address] [facility] [place] [address] Vane Zarate Psychiatrist Psychiatry 03/22/12 [facility] Psychotherapist 08/04/17 [facility] Maintenance Representative 09/13/17 documented as of this encounter
--- OUTSIDE RECORDS SUMMARY | 2022-03-14 18:41 | XMS_ITS | Encounter Summary ---
:1970 Author Organization [facility] Address [address], [place] [address] Care Team Providers Name Role Phone Gagandeep Hinojosa MD Primary Care Provider Reason for Visit Reason Comments Patient Care Coordination Encounter Details Date Type Department Care Team Description 12/07/2018 Care Coord [facility] Deborah Rodrigues Patien t Care Phone Medicine PURCHASING CLERK Coordination [facility]5 [address] [place] [address] [place] [address] [phone] Social History Tobacco Use Types Packs/Day Years [...] [place]. [place] [phone] if he calls the clinic. documented in this encounter Plan of Treatment Not on filedocumented as of this encounter Visit Diagnoses Diagnosis Health senior living, active care coordinati on - Primary documented in this encounter Care Teams Stretching Machine Tender Frame Relationship Specialty Start Date End Date Gagandeep Hinojosa MD PCP - General 05/17/12 [address] [facility] [place] [address] Vane Zarate Psychiatrist Psychiatry 03/22/12 [facility] Mental Health Psychotherapist 08/04/17 [facility] Field Artillery Operations Man 09/13/17 documented as of this encounter
--- OUTSIDE RECORDS SUMMARY | 2022-03-14 18:41 | XMS_ITS | Encounter Summary ---
:1970 Author Organization [facility] Address [address], [place] [address] Care Team Providers Name Role Phone Gagandeep Hinojosa MD Primary Care Provider Reason for Visit Reason Comments Other Encounter Details Date Type Department Care Team Description 02/07/2019 Initial Consult [facility] Vashti Rocha, En counter for other Therapy PT specified special [address] E examinations ([place] [address] [place], [place] Dx) [phone] [id number] Social History Tobacco Use Types Packs/Day Years [...] Primary documented in this encounter Care Teams Molding And Trim Installer Relationship Specialty Start Date End Date Gagandeep Hinojosa MD PCP - General 05/17/12 1415 [facility] [place] [address] Vane Zarate Psychiatrist Psychiatry 03/22/12 [facility] Psychotherapist 08/04/17 [facility] Test Equipment Mechanic 09/13/17 documented as of this encounter
--- OUTSIDE RECORDS SUMMARY | 2022-03-14 18:41 | XMS_ITS | Encounter Summary ---
:1970 Author Organization [facility] Address [address] [place] [address] Care Team Providers Name Role Phone Gagandeep Michaud MD Primary Care Provider Reason for Visit Reason Comments Refill metFORMIN (GLUCOPHAGE) 500 M G tablet [Pharmacy Med Name: METFORMIN 500MG TAB] Encounter Details Date Type Department Care Team Description 09/28/2018 Refill [facility] Gagandeep Michaud, Rochelle waterman (metFORMIN Medicine (GLUCOPHAGE) [address] tablet [[place] [address] [place] [address] Name: METFORMIN 500MG [phone] (Wo rk) TAB]) Social History Tobacco Use [...] MOUTH TWICE DAILY WITH MEALS Interface, Out [employer] Prov Query - 09/28/2018 9:45 AM CDT metFORMIN [...] : 10.9 % on 07/27/2018 Powered by [employer]iyet, Reference: [id number], 09/28/2018 9:45:25 AM CDT, Pool: MANUEL REFILL ([id number]) documented in this encounter Plan of Treatment Not on filedocumented as of this encounter Visit Diagnoses Diagnosis Uncontrolled type 2 diabetes mellitus wi thout complication, without long-term current use of insulin documented in this encounter Care Teams Paint Formulator Relationship Specialty Start Date End Date Gagandeep Michaud MD PCP - General 05/17/12 1415 [facility] [place] [address] Vane Zarate Psychiatrist Psychiatry 03/22/12 [facility] Mental Health Psychotherapist 08/04/17 [facility] Ground Control Approach Technician 09/13/17 documented as of this encounter
--- OUTSIDE RECORDS SUMMARY | 2022-03-14 18:41 | XMS_ITS | Encounter Summary ---
:1970 Author Organization [employer] [facility] Address [address] [place] [address] Care Team Providers Name Role Phone Gagandeep Hinojosa MD Primary Care Provider Reason for Visit Reason Comments HYPERGLYCEMIA Encounter Details Date Type Department Care Team Description 12/09/2018 Nurse Triage [facility] Gagandeep Hinojosa MD HYPERGLYCEMIA [address] [place] [address] [phone] Social History Tobacco Use Types Packs/Day Years [...] speech) Protocols used: DIABETES - HIGH BLOOD [id number] Pt is calling to report that his [...] gives verbal consent for nursing to contact hi s Rosetta regarding his current situation and [...] now and will drive him to [facility] now. PNNL called pts to confirm [...] filedocumented in this encounter Care Teams Registered Respiratory Therapist Relationship Specialty Start Date End Date Gagandeep Hinojosa MD PCP - General 05/17/[address] [facility] [place] [address] Vane Zarate Psychiatrist Psychiatry 03/22/12 [facility] Psychotherapist 08/04/17 [facility] Mainspring Former 09/13/17 documented as of this encounter
--- OUTSIDE RECORDS SUMMARY | 2022-03-14 18:41 | XMS_ITS | Encounter Summary ---
:1970 Author Organization [facility] Address [address], [place] [address] Care Team Providers Name Role Phone Gagandeep Hinojosa MD Primary Care Provider Reason for Visit Reason Comments APPOINTMENT REQUEST Encounter Details Date Type Department Care Team Description 02/22/2019 Care Coord Phone Judy Luke R N APPOINTMENT REQUEST [facility] [address] [place] [address] [place] [phone] [address] Social History Tobacco Use Types Packs/Day Years [...] for patient to call me back at [phone] ULAR MANAGER Judy Pittman RN - 02/22/2019 3:23 PM CDT Rustam??is overdue for DM follow up and needs to schedule (last DM follow up 07/27/18). ??A1c on??11/28/2018 was??10.6%, was due??for??DM follow up on 10/26/2018. ULAR MANAGER documented in this encounter Plan of Treatment Not on filedocumented as of this encounter Visit Diagnoses Not on filedocumented in this encounter Care Teams Granulator Operator Relationship Specialty Start Date End Date Gagandeep Hinojosa MD PCP - General 05/17/[address] [place], [place] [address] [address] Vane Zarate Psychiatrist Psychiatry 03/22/12 [facility] Psychotherapist 08/04/17 [facility] Asphalt Spreader Operator 09/13/17 documented as of this encounter
--- OUTSIDE RECORDS SUMMARY | 2022-03-14 18:41 | XMS_ITS | Encounter Summary ---
:1970 Author Organization [employer] Address [address] [place] [address] Care Team Providers Name Role Phone Gagandeep Michaud MD Primary Care Provider Encounter Details Date Type Department Care Team Description 05/21/2019 Refill Order [facility] Gagandeep Michaud MD [address] [facility] . 1415 [facility] [place] [address] [place] [address] [phone] (Wo rk) Social History Tobacco Use Types [...] Labs to be addressed at future visit. COURIER Interface, Out Surescripts Prov Query - 05/21/2019 5:31 AM CST SCHEDULE THE FOLLOWING: - HBA1C (PN ONLY) BY: Now (Due as of 02/26/2019 for metFORMIN (GLUCOPHAGE) 500 MG tablet) - LAST QUALIFYING VISIT WITH GAGANDEEP MICHAUD: 05/02/2019 - NEXT SCHEDULED VISIT: None - NEXT LAB APPOINTMENT: None Powered by [employer], Reference: [id number], 05/21/2019 5:31:49 AM LAB COURIER, Pool: MANUEL OSCAR ([id number]) COURIER documented in this encounter Plan of Treatment Not on filedocumented as of this encounter Visit Diagnoses Diagnosis Encounter for long-term (current) use of medications - Primary Encounter for long-term (current) use of other medications documented in this encounter Care Teams Surgical Specialist Relationship Specialty Start Date End Date Gagandeep Michaud MD PCP - General 05/17/[address] [facility] [place] [address] Vane Zarate Psychiatrist Psychiatry 03/22/12 [facility] Psychotherapist 08/04/17 [facility] Special Procedures Nurse 09/13/17 documented as of this encounter
--- OUTSIDE RECORDS SUMMARY | 2022-03-14 18:41 | XMS_ITS | Encounter Summary ---
:1970 Author Organization [facility] Address [address], [place] [address] Care Team Providers Name Role Phone Gagandeep Hinojosa MD Primary Care Provider Reason for Visit Reason Comments Disease Registry Encounter Details Date Type Department Care Team Description 02/28/2019 Telephone [facility] Gagandeep Hinojosa MD Disease Registry 1415 [facility] . [address] [place] [address] [place] [address] [phone] (Wo rk) Social History Tobacco Use Types [...] FOR PT TO CALL BACK TO SCHEDULE [phone] ONAL CONSTRUCTION MANAGER Isaías Blair LPN - 02/28/2019 2:23 PM CST Patient is overdue for Diabetes Mellitus labs please call and make a lab only appointment ONAL CONSTRUCTION MANAGER documented in this encounter Plan of Treatment Not on filedocumented as of this encounter Visit Diagnoses Not on filedocumented in this encounter Care Teams Forge Shop Machine Repairer Relationship Specialty Start Date End Date Gagandeep Hinojosa MD PCP - General 05/17/12 1415 [facility] [place] [address] Vane Zarate Psychiatrsamantha Psychiatry 03/22/12 [facility] Psychotherapist 08/04/17 [facility] Diet Aide 09/13/17 documented as of this encounter
--- OUTSIDE RECORDS SUMMARY | 2022-03-14 18:41 | XMS_ITS | Encounter Summary ---
:1970 Author Organization [facility] Address [address] [place] [address] Care Team Providers Name Role Phone Gagandeep Hinojosa MD Primary Care Provider Encounter Details Date Type Department Care Team Description 11/28/2018 Lab Visit [facility] Encounter for long-term [address] (current) use of other [place] Vigil [address] medications (Primary Dx) [phone] Social History Tobacco Use Types Packs/Day Years [...] Complete Blood Count-W/Diff (11/28/2018 11:01 AM CDT) [facility] Method Time Signature WBC 8.4 3.5 - 10.5 11/28/2018 [place] x10(9)/L 11:07 AM CDT LABORATORY RBC 4.90 4.32 - 11/28/2018 [place] 5.72 11:07 AM CDT LABORATORY x10(12)/L Hemoglobin 14.7 13.5 - 11/28/2018 [place] 17.5 g/dL 11:07 AM CDT LABORATORY HCT 40.2 38.8 - 11/28/2018 [place] 50.0 % 11:07 AM CDT LABORATORY MCV 82.0 80.0 - 11/28/2018 [place] 100.0 fL 11:07 AM CDT LABORATORY MCH 30.0 27.6 - 11/28/2018 [place] 33.3 pg 11:07 AM CDT LABORATORY MCHC 36.6 (H) 31.5 - 11/28/2018 [place] 35.2 g/dL 11:07 AM CDT LABORATORY RDW 12.1 11.9 - 11/28/2018 [place] 15.5 % 11:07 AM CDT LABORATORY Platelets 253 150 - 450 11/28/2018 [place] x10(9)/L 11:07 AM CDT LABORATORY Neutrophil 5.0 1.7 - 7.0 11/28/2018 [place] Absolute 10(9)/L 11:07 AM CDT LABORATORY Lymphocyte 2.5 1.0 - 4.8 11/28/2018 [place] Absolute 10(9)/L 11:07 AM CDT LABORATORY Monocytes 0.6 0.2 - 0.9 11/28/2018 [place] Absolute 10(9)/L 11:07 AM CDT LABORATORY Eosinophil 0.2 0.0 - 0.5 11/28/2018 [place] Absolute 10(9)/L 11:07 AM CDT LABORATORY Basophil 0.0 0.0 - 0.3 11/28/2018 [place] Absolute 10(9)/L 11:07 AM CDT LABORATORY Specimen Anatomical Collection Method / Collection Time Recei abimael Time (Source) Location / Volume Laterality Blood Venipuncture / 11/28/2018 11:01 9 Unknown AM CDT 11:01 AM CDT Vane Zarate MD LAB_1 Performing Organization Address City/State/ZIP Code Phon e Number [facility] [address] [place] [address] (ABNORMAL) Carnitine Free And Total (11/28/2018 11:01 AM CDT) P athologist Signature Carnitine 0.6 0.1 - 1.0 11/30/2018 [facility] Kristen/Free 8:38 AM CDT LABORATORIES Ratio Comment: Performed by [employer], [address] [facility] [place] [address] www.[employer], Bull Sultana MD, Lab. Director Carnitine Esterified 11 5 - 29 umol/L 11/30/2018 8:38 AM [facility] [employer] CDT Carnitine, Free 18 (L) 25 - 60 umol/L 11/30/2018 8:38 AM [facility] [employer] CDT Carnitine, Total 29 (L) 34 - 86 umol/L 11/30/2018 8:38 AM [employer] CDT Comment: Test developed and characteristics deter mined by [employer]. See Compliance Statement B : [email or web address] Specimen Anatomical Collection Method / Collection Time Recei abimael Time (Source) Location / Volume Laterality Blood Venipuncture / 11/28/2018 11: 9 Unknown AM CDT 11:01 AM CDT Vane Zarate MD LAB_1 Performing Organization Address City/State/ZIP Code Phon e Number [facility] [address] [phone] CK, Total (11/28/2018 11:01 AM CDT) P athologist Signature CK, Total 51 30 - 200 11/28/2018 [place] U/L 3:19 PM CDT LABORATORY Specimen Anatomical Collection Method / Collection Time Recei abimael Time (Source) Location / Volume Laterality Blood Venipuncture / 11/28/2018 11: 9 Unknown AM CDT 11:01 AM CDT Vane Zarate MD LAB_1 Performing Organization Address City/State/ZIP Code Phon e Number [facility] [address] [place] [address] (ABNORMAL) Hgb A1C (11/28/2018 11:01 AM CDT) Patholo gist Method Time Signature Hemoglobin A1C 10.6 (H) <=5.6 % 11/28/2018 [facility] 5:00 PM CDT LABORATORY Specimen Anatomical Collection Method / Collection Time Recei abimael Time (Source) Location / Volume Laterality Blood Venipuncture / 11/28/2018 11: 9 Unknown AM CDT 11:01 AM CDT Narrative [facility] - 11/28/2018 5:00 P M CDT For patients not previously diagnosed with diabetes: 5.7-6.4%: Increased risk for diabetes 6.5% and greater: Diagnostic for diabete s For patients diagnosed with diabetes: <8.0%: Goal of therapy for ages 18-75 Clinicians may recommend a higher or low er goal for specific individuals. Vane Zarate MD LAB_1 Performing Organization Address City/State/ZIP Code Phon e Number [facility] [address] [place] [address] Potassium (11/28/2018 11:01 AM CDT) P athologist Signature Potassium 5.0 3.5 - 5.1 11/28/2018 [place] mmol/L 3:19 PM CDT LABORATORY Specimen Anatomical Collection Method / Collection Time Recei abimael Time (Source) Location / Volume Laterality Blood Venipuncture / 11/28/2018 11: 9 Unknown AM CDT 11:01 AM CDT Vane Zarate MD LAB_1 Performing Organization Address [facility]/ZIP Code Phon e Number [facility] [address] [place] [address] (ABNORMAL) Sodium (11/28/2018 11:01 AM CDT) P athologist Signature Sodium 135 (L) 136 - 145 11/28/2018 [place] mmol/L 3:19 PM CDT LABORATORY Specimen Anatomical Collection Method / Collection Time Recei abimael Time (Source) Location / Volume Laterality Blood Venipuncture / 11/28/2018 11:01 9 Unknown AM CDT 11:01 AM CDT Vane Zarate MD LAB_1 Performing Organization Address City/[facility]/ZIP Code Phon e Number [facility] [address] [place] [address] Creatinine / GFR (11/28/2018 11:01 AM CDT) P athologist Signature Creatinine 0.80 0.73 - 11/28/2018 [place] 1.18 mg/dL 3:19 PM CDT LABORATORY GFR, Estimated >60 >60 11/28/2018 [place] mL/min/1.7 3:19 PM CDT LABORATORY 3m2 GFR, Est If >60 >60 11/28/2018 [place] mL/min/1.7 3:19 PM CDT LABORATORY Jamaican 3m2 Specimen Anatomical Collection Method / Collection Time Recei abimael Time (Source) Location / Volume Laterality Blood Venipuncture / 11/28/2018 11: 9 Unknown AM CDT 11:01 AM CDT Vane Zarate MD LAB_1 Performing Organization Address City/State/ZIP Code Phon e Number [facility] [address] [place], [place] [address] T4, Total (11/28/2018 11:01 AM CDT) athologist Signature T4, Total 6.5 5.0 - 11.0 11/28/2018 [facility] mcg/dL 7:37 PM CDT [facility] Specimen Anatomical Collection Method / Collection Time Recei abimael Time (Source) Location / Volume Laterality Blood Venipuncture / 11/28/2018 11: 9 Unknown AM CDT 11:01 AM CDT Vane Zarate MD LAB_1 Performing Organization Address City/State/ZIP Code Phon e Number [address] [address] (ABNORMAL) T3, Total (11/28/2018 11:01 AM CDT) Analysis Performed At Patho logist Time Signature Triiodothyroni 75 (L) 80 - 200 11/29/2018 [facility] ne, Total ng/dL 11:38 AM CDT LABORATORIES (Total T3) Comment: REFERENCE INTERVAL: Triiodothyronine, To ora (Total T3) Access complete set of age- and/or gende r-specific reference intervals for this test in the [facility] Directory ([employer]). Performed by [employer], [address] [place] [address] www.[employer], Bull Sultana MD, Lab. Director Specimen Anatomical Collection Method / Collection Time Recei abimael Time (Source) Location / Volume Laterality Blood Venipuncture / 11/28/2018 11:01 9 Unknown AM CDT 11:01 AM CDT Vane Zarate MD LAB_1 Performing Organization Address City/State/ZIP Code Phon e Number [facility] [address] [phone] TSH (11/28/2018 11:01 AM CDT) P athologist Signature TSH, Sensitive 0.85 0.30 - 11/28/2018 [facility] 4.50 4:19 PM CDT LABORATORY uIU/mL Specimen Anatomical Collection Method / Collection Time Recei abimael Time (Source) Location / Volume Laterality Blood Venipuncture / 11/28/2018 11:01 9 Unknown AM CDT 11:01 AM CDT Vane Zarate MD LAB_1 Performing Organization Address City/State/ZIP Code Phon e Number [facility] [address] [place] [address] documented in this encounter Visit Diagnoses Diagnosis Encounter for long-term (current) use of other medications - Primary documented in this encounter Care Teams Wood Veneer Taper Relationship Specialty Start Date End Date Gagandeep Hinojosa MD PCP - General 05/17/12 [facility] [place], [place] [address] Vane Zarate Psychiatrist Psychiatry 03/22/12 [facility] Psychotherapist 08/04/17 [facility] Mgr 09/13/17 documented as of this encounter
--- OUTSIDE RECORDS SUMMARY | 2022-03-14 18:42 | XMS_ITS | Encounter Summary ---
:1970 Author Organization [facility] Address [address], [place] [address] Care Team Providers Name Role Phone Gagandeep Hinojosa MD Primary Care Provider Encounter Details Date Type Department Care Team Description 01/19/2018 Notes/Orders Vane Durbin, Encounter for long-term [address] Marlena Bonds MD (current) use of [place] Vigil [address] medications (Primary [phone] [address] Dx) [place] [address] Social History Tobacco Use Types Packs/Day Years [...] - 01/19/2018 4:07 PM CDT Performed at [facility], [facility] [place] [address] CLIA number [id number] Joey Zarate MD LAB_1 Performing Organization Address [facility] Phon e Number [facility] [address] [place] [address] T3, Free, Serum (01/19/2018 11:41 AM CDT) P athologist Signature Triiodothyronin 2.5 1.7 - 3.7 [facility] e, Free pg/mL Specimen Anatomical Collection Method Collection Time Receive d Time (Source) Location / / Volume Laterality 01/19/2018 11:41 01/19/2018 3:07 AM CDT PM CDT Narrative [facility] - 01/19/2018 4:07 PM CDT Performed at [address] [address] CLIA number [id number] .Results faxed to Jennifer Zarate M.D 9,[phone], 01/19/2018,16:15, by [place] Joey Zarate MD LAB_1 Performing Organization Address [facility] Phon e Number [facility] [address] [place] [address] [phone] (ABNORMAL) TSH (01/19/2018 11:41 AM CDT) [facility] gist Method Time Signature Thyroid 4.52 (H) 0.30 - [facility] Stimulating 4.50 Hormone uIU/mL Specimen Anatomical Collection Method Collection Time Receive d Time (Source) Location / / Volume Laterality 01/19/2018 11:41 01/19/2018 3:07 AM CDT PM CDT Narrative [facility] - 01/19/2018 4:07 PM CDT Performed at [address] [address] CLIA number [id number] Joey Zarate MD LAB_1 Performing Organization Address [facility] Phon e Number [facility] [address] [place] [address] (ABNORMAL) Sodium (01/19/2018 11:41 AM CDT) P athologist Signature Sodium 135 (L) 136 - 145 [facility] mmol/L Specimen Anatomical Collection Method Collection Time Receive d Time (Source) Location / / Volume Laterality 01/19/2018 11:41 01/19/2018 2:49 AM CDT PM CDT Narrative PN [facility] - 01/19/2018 3:54 PM CDT Performed at [facility], [facility] [address] [place] [address] CLIA number [id number] Joey Zarate MD LAB_1 Performing Organization Address [facility] Code Phon e Number [facility] [address] [place] [address] (ABNORMAL) Creatinine / GFR (01/19/2018 11:41 AM [...] - 01/19/2018 3:54 PM CDT Performed at [facility], [facility] [address] [place] [address] CLIA number [id number] Joey Zarate MD LAB_1 Performing Organization Address City/[facility] Phon e Number [facility] [address] [place] [address] [place] (01/19/2018 11:41 AM CDT) Analysis Performed At Patho logist Time Signature Date Last Dose 01-19-2018 [facility] Lith Time Last Dose 730 am PN [facility] [place] Level 0.73 0.50 - [facility] 1.10 mmol/L Specimen Anatomical Collection Method Collection Time Receive d Time (Source) Location / / Volume Laterality 01/19/2018 11:41 01/19/2018 3:09 AM CDT PM CDT Narrative [facility] - 01/19/2018 3:38 PM CDT Performed at [address] [address] CLIA number [id number] Joey Zarate MD LAB_1 Performing Organization Address [facility] Phon e Number [facility] [address] [place] [address] (ABNORMAL) Hgb A1c (01/19/2018 11:41 AM CDT) athologist Signature HGB A1C 8.0 (H) 4.0 - 5.6 % [facility] Specimen Anatomical Collection Method Collection Time Receive d Time (Source) Location / / Volume Laterality 01/19/2018 11:41 01/19/2018 3:10 AM CDT PM CDT Narrative [facility] - 01/19/2018 10:04 PM CDT Performed at [address] [address] CLIA number [id number] .Results faxed to Jennifer Zarate M.D 9,[phone], 01/19/2018,16:15, by [place] Joey Zarate MD LAB_1 Performing Organization Address [facility] Phon e Number [facility] [address] [place] [address] Call List Questions (01/19/2018 11:35 AM CDT) athologist Signature Call Back Done [facility] Documented Specimen (Source) Anatomical Collection Method Collection Time Re ceived Time Location / / Volume Laterality 01/19/2018 11:35 AM CDT Narrative [facility] - 01/19/2018 11:35 AM CDT Performed at [facility], [address] [place] [address] CLIA number [id number] Joey Zarate MD LAB_1 Performing Organization Address City/State/ZIP Code Phon e Number [facility] [address] [place] [address] [phone] documented in this encounter Visit Diagnoses Diagnosis Encounter for long-term (current) use of medications - Primary Encounter for long-term (current) use of other medications Encounter for long-term (current) use of medications Encounter for long-term (current) use of other medications documented in this encounter Care Teams Associate Attorney Relationship Specialty Start Date End Date Gagandeep Hinojosa MD PCP - General 05/17/12 [address] [facility] [place] [address] Vane Zarate Psychiatrsamantha Psychiatry 03/22/12 [facility] Psychotherapist 08/04/17 [facility] Ip Paralegal 09/13/17 documented as of this encounter
--- OUTSIDE RECORDS SUMMARY | 2022-03-14 18:42 | XMS_ITS | Encounter Summary ---
:1970 Author Organization [facility] Address [address] [address] Care Team Providers Name Role Phone Gagandeep Hinojosa MD Primary Care Provider Reason for Visit Reason Comments HC Face To Face Visit Encounter Details Date Type Department Care Team Description 01/12/2018 Care Coord [place] [facility] Deborah Rodrigues, [facility] Fa ce To Face Office Visit Medicine [facility] Visit [address] [place] [address] [facility]. [facility] [place] [address] [place] [address] [phone] Social History Tobacco Use Types Packs/Day Years Used Date Smoking Tobacco: Every Day Cigarettes 1 25 Smokeless Tobacco: Former Qu it: 10/25/2012 Comments: Smoking History Packs/day: Alcohol Use Standard Drinks/Week Comments No 0 (1 standard drink = 0.6 oz pure Alcoho lic Drinks/day: Amount:0; alcohol) Freq:Never; Sex Assigned at Date Recorded Not on file documented as of this encounter Progress Notes Deborah Rodrigues, [facility] - 01/12/2018 10:00 AM CDT Care Coordination Visit Pt: Timur Krishnamurthy Referred by: Gagandeep Hinojosa MD Reason for visit: Care Coordination Timur was seen alone. Discussion/actions: Met with Rustam for a scheduled [facility] appointment. RN Transfer Table Operator, Judy Pittman, was present for the [...] he was hoping to go to [facility]. Rustam stated that he talk to them, but they do not accept Medicare, so he is planning on applying for [place]. I explained to Rustam that he is well over [place] for [place] or [place], so he would have to pay for private insurance. I encouraged him to discuss his options with his [facility] CM, who he is meeting with next [...] Primary documented in this encounter Care Teams Labour Market Economist Relationship Specialty Start Date End Date Gagandeep Hinojosa MD PCP - General 05/17/12 [facility] [place] [address] Vane Zarate Psychiatrist Psychiatry 03/22/12 [facility] Psychotherapist 08/04/17 [facility] CM [employer]ens [employer] Prescription Clerk 09/13/17 documented as of this encounter
--- OUTSIDE RECORDS SUMMARY | 2022-03-14 18:42 | XMS_ITS | Encounter Summary ---
:1970 Author Organization [facility] Address [address] [address] Care Team Providers Name Role Phone Gagandeep Hinojosa MD Primary Care Provider Reason for Visit Reason Comments HC Face To Face Visit Encounter Details Date Type Department Care Team Description 10/20/2017 Care Coord [facility] Judy Pittman RN [facility] Face To Face Office Visit Medicine [address] [facility] Visit [address] [place] [address] [phone] Social History Tobacco Use Types Packs/Day Years [...] RN - 10/20/2017 9:00 AM CDT RN Lithographic Proofer Visit Pt: Timur Krishnamurthy Referred by: Gagandeep [...] with Lesly Rodrigues [facility] Lithographic Proofer. Both Lesly and I noticed and commented that Rustam appears to be more relaxed this week, he is visibly morecalm and less jittery today. Rustam attributes this change to cutting back his caffeine consumption and the recent change in his medication. Mental Health See note from Lesly Rodrigues [facility] Lithographic Proofer for documentation. Medication I reviewed Rustam's medication [...] to work outor play basketball at the [facility], but it is free to walk [...] prescription for diabetic shoes and inserts through [employer], he is excited to receive his first pair of [employer]. He also received foot care through [facility] and was advised to continue to go every 3 months. Smoking Cessation See note from Lesly Rodrigues, [facility] Lithographic Proofer for documentation. Swelling The swelling in Rustam's [...] unspecified documented in this encounter Care Teams Lead Care Manager Relationship Specialty Start Date End Date Gagandeep Hinojosa MD PCP - General 05/17/12 [address] [facility] [place] [address] Vane Zarate Psychiatrist Psychiatry 03/22/12 [facility] Psychotherapist 08/04/17 [facility] Assistant Manager Trainee 09/13/17 documented as of this encounter
--- OUTSIDE RECORDS SUMMARY | 2022-03-14 18:42 | XMS_ITS | Encounter Summary ---
:1970 Author Organization [facility] Address [address], [place] [address] Care Team Providers Name Role Phone Gagandeep Hinojosa MD Primary Care Provider Reason for Visit Reason Comments [facility] Phone Visit Encounter Details Date Type Department Care Team Description 02/08/2018 Care Coord Phone Judy Luke R N [facility] Phone Visit Medicine [address] [facility] 14[address] [facility] [place] [address] [place] [address] [phone] Social History Tobacco Use Types Packs/Day Years [...] RN - 02/08/2018 10:29 AM CDT RN Billing Machine Operator - Diabetes Follow-Up Current diabetes [...] snf, active care coordinati on - Primary Type 2 diabetes mellitus with insulin th fan ([facility]) documented in this encounter Care Teams Air Duct Mechanic Relationship Specialty Start Date End Date Gagandeep Hinojosa MD PCP - General 05/17/12 [address] [facility] [place] [address] Vane Zarate Psychiatrist Psychiatry 03/22/12 [facility] Mental [facility] Psychotherapist 08/04/17 [facility] Senior Technical Manager 09/13/17 documented as of this encounter
--- OUTSIDE RECORDS SUMMARY | 2022-03-14 18:42 | XMS_ITS | Encounter Summary ---
:1970 Author Organization [employer] Address [address] [place] [address] Care Team Providers Name Role Phone Gagandeep Hinojosa MD Primary Care Provider Encounter Details Date Type Department Care Team Description 01/19/2018 Lab Visit [facility] Encounter for long-term [address] (current) use of KATIANA Vigil [address] medications [phone] Social History Tobacco Use Types Packs/Day Years [...] - 01/19/2018 4:07 PM [place] [address] CLIA number [id number] Joey Zarate MD LAB_1 Performing Organization Address City/State/ZIP Code Phon e Number PN SOFT [address] [place] [address] T3, Free, Serum (01/19/2018 11:41 AM CDT) athologist Signature Triiodothyronin 2.5 1.7 - 3.7 PN SOFT e, Free pg/mL Specimen Anatomical Collection Method Collection Time Receive d Time (Source) Location / / Volume Laterality 01/19/2018 11:41 01/19/2018 3:07 AM CDT PM CDT Narrative PN SOFT - 01/19/2018 4:07 PM CDT Performed at [place] [address] [place] [address] CLIA number [id number] .Results faxed to Jennifer Zarate M.D 9,[id number], 01/19/2018,16:15, by MONROE Joey Zarate MD LAB_1 Performing Organization Address [facility] Code Phon e Number PN SOFT [address] [place] [address] (ABNORMAL) TSH (01/19/2018 11:41 AM CDT) Patholo gist Method Time Signature Thyroid 4.52 (H) 0.30 - PN SOFT Stimulating 4.50 Hormone uIU/mL Specimen Anatomical Collection Method Collection Time Receive d Time (Source) Location / / Volume Laterality 01/19/2018 11:41 01/19/2018 3:07 AM CDT PM CDT Narrative PN SOFT - 01/19/2018 4:07 PM CDT Performed at [address] [address] CLIA number [id number] Joey Zarate MD LAB_1 Performing Organization Address [facility] [address] [facility] Phon e Number PN SOFT [address] [place] [address] (ABNORMAL) Sodium (01/19/2018 11:41 AM CDT) P athologist Signature Sodium 135 (L) 136 - 145 PN SOFT mmol/L Specimen Anatomical Collection Method Collection Time Receive d Time (Source) Location / / Volume Laterality 01/19/2018 11:41 01/19/2018 2:49 AM CDT PM CDT Narrative PN SOFT - 01/19/2018 3:54 PM CDT Performed at [facility], [address] [place] [address] CLIA number [id number] Joey Zarate MD LAB_1 Performing Organization Address [facility] Phon e Number PN SOFT [address] [place] [address] (ABNORMAL) Creatinine / GFR (01/19/2018 11:41 AM [...] - 01/19/2018 3:54 PM CDT Performed at [facility], [address] [place] [address] CLIA number [id number] Joey Zarate MD LAB_1 Performing Organization Address [facility] Phon e Number PN SOFT [address] [place] [address] [place] (01/19/2018 11:41 AM CDT) Analysis Performed At Patho logist Time Signature Date Last Dose 01-19-2018 PN SOFT Lith Time Last Dose 730 am PN SOFT [place] Level 0.73 0.50 - PN SOFT 1.10 mmol/L Specimen Anatomical Collection Method Collection Time Receive d Time (Source) Location / / Volume Laterality 01/19/2018 11:41 01/19/2018 3:09 AM CDT PM CDT Narrative PN SOFT - 01/19/2018 3:38 PM CDT Performed at [facility], [address] [place] [address] CLIA number [id number] Joey Zarate MD LAB_1 Performing Organization Address [facility] Phon e Number PN SOFT [address] [place] [address] (ABNORMAL) Hgb A1c (01/19/2018 11:41 AM CDT) P athologist Signature HGB A1C 8.0 (H) 4.0 - 5.6 % PN SOFT Specimen Anatomical Collection Method Collection Time Receive d Time (Source) Location / / Volume Laterality 01/19/2018 11:41 01/19/2018 3:10 AM CDT PM CDT Narrative PN SOFT - 01/19/2018 10:04 PM CDT Performed at [facility], [facility] [place] [address] CLIA number [id number] .Results faxed to Jennifer Zarate M.D 9,[phone], 01/19/2018,16:15, by MONROE Joey Zarate MD LAB_1 Performing Organization Address City/[facility]/ZIP [facility] Phon e Number PN SOFT [address] [place] [address] Call List Questions (01/19/2018 11:35 AM CDT) athologist Signature Call Back Done PN SOFT Documented Specimen (Source) Anatomical Collection Method Collection Time Re ceived Time Location / / Volume Laterality 01/19/2018 11:35 AM CDT Narrative PN SOFT - 01/19/2018 11:35 AM CDT Performed at [facility], [address] [place] [address] CLIA number [id number] Joey Zarate MD LAB_1 Performing Organization Address [facility] Phon e Number SOFT [address] [place] [address] [phone] documented in this encounter Visit Diagnoses Diagnosis Encounter for long-term (current) use of medications Encounter for long-term (current) use of other medications documented in this encounter Care Teams Elderly Companion Relationship Specialty Start Date End Date Gagandeep Hinojosa MD PCP - General 05/17/[address] [place] [address] Vane Zarate Psychiatrist Psychiatry 03/22/12 [facility] Health Psychotherapist 08/04/17 [facility] Plumbing Foreman 09/13/17 documented as of this encounter
--- OUTSIDE RECORDS SUMMARY | 2022-03-14 18:42 | XMS_ITS | Encounter Summary ---
:1970 Author [facility] Address [address] [place] [address] Care Team Providers Name Role Phone Gagandeep Hinojosa MD Primary Care Provider Reason for Visit Reason Comments [facility] Phone Visit Encounter Details Date Type Department Care Team Description 01/10/2018 Care Coord Phone [facility] Deborah Rodrigues, [facility] Phone Visit Medicine [facility] 14[address] [facility] . [address] [place] [address] [place] [address] [phone] Social History Tobacco Use Types Packs/Day Years Used Date Smoking Tobacco: Every Day Cigarettes 1 25 Smokeless Tobacco: Former Qu it: 10/25/2012 Comments: Smoking History Packs/day: Alcohol Use Standard Drinks/Week Comments No 0 (1 standard drink = 0.6 oz pure Alcoho lic Drinks/day: Amount:0; alcohol) Freq:Never; Sex Assigned at Date Recorded Not on file documented as of this encounter Progress Notes Deborah Rodrigues, [facility] - 01/10/2018 11:30 AM CDT Home Appliance Washing Machine Mechanic - Phone Call Contact with: Rustam Reason for call: Care Coordination Discussion/actions: Called Rustam to check-in, since his discharge yesterday (01/09). Rustam reports I got too narrow in my thinking, but said he is doing better now. Rustam agreed to a hospital discharge appointment with his PCP, followed by a [facility] appointment. Rustam got tearful [...] Primary documented in this encounter Care Teams Loan Clerk Relationship Specialty Start Date End Date Gagandeep Hinojosa MD PCP - General 05/17/12 [address] [facility] [place] [address] Vane Zarate Psychiatrist Psychiatry 03/22/12 [facility] Mental Health Psychotherapist 08/04/17 [facility] Forming Process Line Worker 09/13/17 documented as of this encounter
--- OUTSIDE RECORDS SUMMARY | 2022-03-14 18:42 | XMS_ITS | Encounter Summary ---
:1970 Author [facility] Address [address] [place] [address] Care Team Providers Name Role Phone Gagandeep Hinojosa MD Primary Care Provider Reason for Visit Reason Comments HC Face To Face Visit Encounter Details Date Type Department Care Team Description 09/22/2017 Care Coord Yaritza [facility] Judy Pittman RN [facility] Face To Face Office Visit Medicine [address] [facility] Visit [address] [facility] [place] [address] [phone] Social History Tobacco Use Types Packs/Day Years [...] RN - 09/22/2017 10:00 AM CDT RN Shipping Services Sales Representative Visit Pt: Timur Krishnamurthy Referred by: [...] is a joint visit with Lesly Rodrigues FILING AND POLISHING SUPERVISOR Shipping Services Sales Representative. Both Lesly and I noticed and commented that Rustam appears visibly more calm and less jittery today, he attributes this to cutting back on his caffeine consumption. Mental Health See note from ERLIN Salas Shipping Services Sales Representative for documentation. Insurance Rustam receives SSDI for [...] the meantime, Rustam has met with aninsurance pediatric care coordinator plans to enroll in a supplemental Medicare [...] back and [facility] Rustam agreed and I assisted with scheduling [...] or he could risk hypo or hyperglycemia. uRstam states he understands. Blood Glucose Rustam did [...] an kaylee on his Smartphone. He agreed. Lsely and I also reminded Rustam to limit [...] Rustam has not been walking at the [facility], he wants to start playing basketball again. However, he struggles with motivation. I reminded Rustam of the importance of physical activity with glucose control and reducing manic energy. Smoking Cessation See note from Lesly Rodrigues, [facility] Shipping Services Sales Representative for documentation. Swelling The swelling in Rustam's LE has improved significantly. He currently has +2 edema in his L lower extremity only. Rustam showed me his foot ulcer, which I noted is completely scabbed over, without any signs of infection at this time. He is scheduled to receive foot/nail care at [facility] tomorrow. I reminded Rustam of the [...] PLAN: Refill of test strips sent to [facility] in [place]. Scheduled podiatry follow up appt on 10/06/17. [...] documented in this encounter Care Teams Screen Maker Relationship Specialty Start Date End Date Gagandeep Hinojosa MD PCP - General 05/17/[address] [place] [address] [place] Ger[place] [address] Vane Zarate Psychiatrist Psychiatry 03/22/12 [facility] Mental Health Psychotherapist 08/04/17 [facility] Fireworks Assembler 09/13/17 documented as of this encounter
--- OUTSIDE RECORDS SUMMARY | 2022-03-14 18:42 | XMS_ITS | Encounter Summary ---
:1970 Author Organization [facility] Address [address] [place] [address] Care Team Providers Name Role Phone Gagandeep Hinojosa MD Primary Care Provider Reason for Visit Reason Comments [facility] Phone Visit Encounter Details Date Type Department Care Team Description 01/31/2018 Care Coord Phone Judy Luke R N [facility] Phone Visit Medicine 1415 [facility] 14[address] [facility] [place] [address] [place] [address] [phone] Social History Tobacco Use Types Packs/Day Years [...] RN - 01/31/2018 12:43 PM CDT RN Trim Attacher - Diabetes Follow-Up Current diabetes medication regimen: [...] insulin documented in this encounter Care Teams Pelletizer Relationship Specialty Start Date End Date Gagandeep Hinojosa MD PCP - General 05/17/[address] [place], [place] [address] [address] Vane Zarate Psychiatrsamantha Psychiatry 03/22/12 [facility] Psychotherapist 08/04/17 [facility] Propulsion Generator Repairer 09/13/17 documented as of this encounter
--- OUTSIDE RECORDS SUMMARY | 2022-03-14 18:42 | XMS_ITS | Encounter Summary ---
:1970 Author Organization [facility] Address [address] [place] [address] Care Team Providers Name Role Phone Gagandeep Hinojosa MD Primary Care Provider Reason for Visit Reason Comments Hospital Discharge Follow-up Encounter Details Date Type Department Care Team Description 01/16/2018 Office Visit Gagandeep Storm Bipolar I disorder (HRC) (Primary Dx); Romario Rubio MD Encounter for immunization; [address] [facility] [place] [address] Ave [phone] [place], [place] [address] Social History Tobacco Use Types [...] Body Mass Index 29.56 04/05/2017 3:18 PM NEUROLOGY TECH documented in this encounter Progress Notes Gagandeep Hinojosa MD - 01/16/2018 1:00 PM CDT ICD-10-CM 1. Bipolar I disorder ([facility]) F31.9 2. Encounter for immunization Z23 Influenza IIV4 (Quadrivalent) 0.5 mL (11896) 3. Hyponatremia E87.1 Basic Metabolic Panel CHIEF COMPLAINT: Chief Complaint Patient presents with ??? Hospital Discharge Follow-up SUBJECTIVE : Timur Krishnamurthy is an 47 y.o. male who presents for posthospitalization recheck. [facility] and was not comfortable at that facility, signing himself out AMA. He was subsequently readmitted to [facility], where he has more comfort andwas observed [...] Noted ??? Hyponatremia 01/16/2018 ??? Tobacco abuse ([facility]) 02/24/2016 ??? Tinea versicolor 07/18/2015 ??? Tobacco use disorder ([facility]) 10/26/2012 ??? Anemia 05/02/2012 Overview Note: Anemia, unspecified ??? Health intermediate, active care coordination 03/22/2012 Overview Note: Keller Machine Operator: JOSETTE Yip [phone] Care coordination focus: T2DM, financial resources Living situation: lives with spouse Important notes: SSDI, significant insulin resistance, uses Relion insulin, commonly reaches Medicare Coverage Gap See care plan under Chart Review > [facility] Reports > [facility] CARE PLAN REPORT ??? Microalbuminuria 02/04/2012 ??? ME, old ([facility]) 09/16/2011 ??? History of PTCA 09/16/2011 Overview Note: History of PTCA 04/2011 BMS RCA ??? Obesity, Class I, BMI 30-34.9 ([facility]) 09/16/2011 Overview Note: Body mass index is 31.16 kg/(m^2). ??? Hyperlipidemia with target LDL less than 70 ([facility]) 06/08/2011 Overview Note: Hyperlipidemia LDL goal < 70 ??? ASHD (arteriosclerotic heart disease) ([facility]) 05/04/2011 ??? Erectile dysfunction 01/22/2011 Overview Note: side effect Risperdal ??? Type 2 diabetes mellitus, uncontrolled ([facility]) 12/11/2010 Overview Note: Type II or unspecified type diabetes mellitus without mention of complication, uncontrolled ([facility]) ??? Dermatophytosis of body 09/04/2010 Class: Historical Overview Note: Tinea Corporis ??? Coronary atherosclerosis ([facility]) 12/22/2009 Overview Note: LW Modifier: mod RCA, negative nuclear stress test ; CAD ??? Nonspecific abnormal results of liver function study 12/22/2009 Overview Note: Liver Function Tests Abnormal ??? Bipolar I disorder ([facility]) 09/15/2005 Overview Note: LW Onset: 29Esd14 ; Bipolar I Dis FAMILY HISTORY OR [...] immunization Z23 Influenza IIV4 (Quadrivalent) 0.5 mL (01176) 3. Hyponatremia E87.1 Basic Metabolic Panel Follow-up: [...] - 01/16/2018 6:36 PM CDT Performed at [facility] [place], [address] [place] [address] CLIA number [id number] Gagandeep Hinojosa MD LAB_1 Performing Organization Address City/State/ZIP Code Phon e Number PN SOFT [address] [place] [address] [phone] documented in this encounter Visit Diagnoses Diagnosis Bipolar I disorder ([facility]) - Primary Bipolar I disorder, most recent episode (or current) unspecified Encounter for immunization Need for other specified prophylactic va ccination against single bacterial disease Hyponatremia Hyposmolality and/or hyponatremia Hyponatremia Hyposmolality and/or hyponatremia documented in this encounter Care Teams Wafer Polishing Worker Relationship Specialty Start Date End Date Gagandeep Hinojosa MD PCP - General 05/17/12 [facility] [place] [address] Vane Zarate Psychiatrsamantha Psychiatry 03/22/12 [facility] Psychotherapist 08/04/17 [facility] Mailroom Personnel 09/13/17 documented as of this encounter
--- OUTSIDE RECORDS SUMMARY | 2022-03-14 18:42 | XMS_ITS | Encounter Summary ---
:1970 Author Organization [facility] Address [address] [place] [address] Care Team Providers Name Role Phone Gagandeep Michaud MD Primary Care Provider Reason for Visit Reason Onset Date Comments Refill 03/07/2018 blood glucose (ONE T OUCH ULTRA BLUE) test strip Encounter Details Date Type Department Care Team Description 03/07/2018 Refill [facility] Gagandeep Michaud, Rochelle l (blood glucose Medicine (ONE TOUCH ULTRA BLUE) [address] test strip) [place] [address] [place] [address] (Wo rk) Social History Tobacco Use Types [...] on insurance. ICD-10: E11.29, E11.65, R80.9, Z79.4 OOR RECREATION SPECIALIST Interface, Out [email or web address] Prov Query - 03/07/2018 3:33 PM CST [...] MICHAUD) Next scheduled visit: None Powered by [employer], Reference: [id number], 03/07/2018 3:33:19 PM OUTDOOR RECREATION SPECIALIST, Pool: MANUEL REFILL ([id number]) OOR RECREATION SPECIALIST documented in this encounter Plan of Treatment Not on filedocumented as of this encounter Visit Diagnoses Diagnosis Uncontrolled type 2 diabetes mellitus wi th microalbuminuria, with long-term current use of insulin documented in this encounter Care Teams Director Hardware Relationship Specialty Start Date End Date Gagandeep Michaud MD PCP - General 05/17/12 14[address] [facility] [place] [address] Vane Zarate Psychiatrsamantha Psychiatry 03/22/12 [facility] Psychotherapist 08/04/17 [facility] Machine Pie Maker 09/13/17 documented as of this encounter
--- OUTSIDE RECORDS SUMMARY | 2022-03-14 18:42 | XMS_ITS | Encounter Summary ---
:1970 Author Organization [facility] Address [address], [place] [address] Care Team Providers Name Role Phone Gagandeep Hinojosa MD Primary Care Provider Reason for Visit Reason Comments HC Face To Face Visit Encounter Details Date Type Department Care Team Description 10/20/2017 Care Coord [facility] Deborah Rodrigues, [facility] Fa ce To Face Office Visit Medicine [facility] Visit [address] [place] [address] [facility] [place] [address] [place] [address] [phone] Social History Tobacco Use Types Packs/Day Years Used Date Smoking Tobacco: Every Day Cigarettes 1 25 Smokeless Tobacco: Former Qu it: 10/25/2012 Comments: Smoking History Packs/day: Alcohol Use Standard Drinks/Week Comments No 0 (1 standard drink = 0.6 oz pure Alcoho lic Drinks/day: Amount:0; alcohol) Freq:Never; Sex Assigned at Date Recorded Not on file documented as of this encounter Progress Notes Deborah Rodrigues, [facility] - 10/20/2017 9:00 AM CDT Care Coordination Visit Pt: Timur Krishnamurthy Referred by: Gagandeep Hinojosa MD Reason for visit: Care Coordination Timur was seen alone. Discussion/actions: Rustam reports that his blood sugars are doing well and he is taking all of this medication as prescribed. Rustam went to see the poditrist, and agreed to update RN Millinery Department Manager, Judy Pittman, if he has ongoing concerns [...] overall. Rustam met with his mental health case finisher yesterday, and will continue to meet with [...] Primary documented in this encounter Care Teams Pen Ruler Operator Relationship Specialty Start Date End Date Gagandeep Hinojosa MD PCP - General 05/17/12 [address] [facility] [place] [address] Vane Zarate Psychiatrist Psychiatry 03/22/12 [facility] Mental Health Psychotherapist 08/04/17 [facility] Edi Architect 09/13/17 documented as of this encounter
--- OUTSIDE RECORDS SUMMARY | 2022-03-14 18:42 | XMS_ITS | Encounter Summary ---
:1970 Author [facility] Address [address], [place] [address] Care Team Providers Name Role Phone Gagandeep Hinojosa MD Primary Care Provider Reason for Referral Consult/Transfer Care (Routine) - Closed Specialty Diagnoses / Procedures Referred By Contact Refer red To Contact Diagnoses Uncontrolled type 2 diabetes mellitus with hyperglycemia (HRC) Gagandeep Hinojosa MD [facility] [place] [address] Referral ID Status Reason Start Date Expiration Date Visits Requ ested Visits Authorized [id number] Closed 07/27/2018 10/26/2019 1 1 Scheduling Instructions Your provider has recommended care coord ination. A care hat steamer will call you within two weeks. If you would like to s peak with someone sooner, please contact your primary care clinic. Reason for Visit Reason Comments MEDICATION CHECK update meds Encounter Details Date Type Department Care Team Description 07/27/2018 Office Visit Gagandeep Storm type 2 diabetes mellitus with hyperglycemia (HR) (Primary Dx); Romario Rubio MD Bipolar I disorder (HR); [address] 14[address] [facility] ASHD (ar teriosclerotic heart disease); [address] Hyperlipidemia LDL goal < 70; [place] [address] [place] Essential hypertension; [phone] [id number] 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, uncontrolled (HRC); [phone] Diabetic polyne uropathy associated with type 2 diabetes mellitus ([facility]); (Work) Type II diabetes mellitus with ophthalmi c manifestations, uncontrolled ([facility]); [phone] Background diab etic retinopathy ([facility]); (Fax) Nonproliferativ e diabetic retinopathy ([facility]); alf curre nt use of insulin ([facility]); Type 2 diabetes mellitus with complication, with long-term current use of insulin ([facility]); Hyperlipidemia, unspecified hyperlipidemia type; Tobacco use [...] CAPSULE BY MOUTH EVERY DAY 0 ??? [place] Carbonate 600 MG capsule Take 600 mg by mouth daily at bedtime. 01/16/2018: Received from: External Pharmacy Received Sig: TAKE ONE CAPSULE BY MOUTH AT BEDTIME 0 ??? metFORMIN (GLUCOPHAGE) 500 MG tablet Take 2 Tablets by mouth two times a day with meals. 360 Tablet 0 ??? multivitamin (THERAGRAN) tablet Take 1 Tablet by mouth. 01/16/2018: Received from: [facility] Received Sig: Take 1 tablet by [...] Uncontrolled type 2 diabetes mellitus with hyperglycemia ([facility]) E11.65 POCT Glycosylated Hemoglobin (HB A1C) CARE COORDINATION - PRIMARY CARE CONSULT 2. Bipolar I disorder ([facility]) F31.9 3. ASHD (arteriosclerotic heart disease) ([facility]) I25.10 atorvastatin (LIPITOR) 80 MG tablet 4. Hyperlipidemia LDL goal < 70 E78.5 atorvastatin (LIPITOR) 80 MG tablet 5. Essential hypertension ([facility]) I10 amLODIPine (NORVASC) 10 MG tablet [...] Hemoglobin (HB A1C) (07/27/2018 2:02 PM CDT) [facility] gist Method Time Signature Hemoglobin A1C 10.9 (H) <=5.6 % 07/27/2018 [place] (Rapid) 2:15 PM CDT LABORATORY Specimen Anatomical Collection Method / Collection Time Recei abimael Time (Source) Location / Volume Laterality Blood Venipuncture / 07/27/2018 2:02 07/27/2018 2:03 Unknown PM CDT PM CDT Narrative [facility] - 07/27/2018 2:15 PM CDT This Rapid A1c test is designed for charlotte toring patients with an established diagnosis of diabetes mellitus. This rapid method is not suitable to establish the initial diagnosis of diabetes mellitus. Performe d using Point of Care Instrumentation. Gagandeep Hinojosa MD LAB_1 Performing Organization Address City/State/ZIP Code Phon e Number [place] [facility] 14[address] [facility] [place] [address] documented in this encounter Visit Diagnoses Diagnosis Uncontrolled type 2 diabetes mellitus wi th hyperglycemia (HRC) - Primary Bipolar I disorder (HRC) Bipolar I disorder, most recent episode (or current) unspecified ASHD (arteriosclerotic heart disease) ([facility]) Coronary atherosclerosis of unspecified type of vessel, [place] or graft Hyperlipidemia, unspecified hyperlipidem ia type [...] with ophthalmic manifestations, not stated as uncontrolled meterman current use of insulin (HRC) Encounter for long-term (current) use of insulin Type 2 diabetes mellitus with complicati on, with long-term current use of insulin (HRC) Tobacco use disorder (HRC) Tobacco use disorder documented in this encounter Care Teams Pharmaceutical Engineer Relationship Specialty Start Date End Date Gagandeep Hinojosa MD PCP - General 05/17/12 1415 [facility] [place] [address] Vane Zarate Psychiatrist Psychiatry 03/22/12 [facility] Psychotherapist 08/04/17 [facility] Delicate Fabrics Presser 09/13/17 documented as of this encounter
--- OUTSIDE RECORDS SUMMARY | 2022-03-14 18:42 | XMS_ITS | Encounter Summary ---
:1970 Author Organization [facility] Address [address], [place] [address] Care Team Providers Name Role Phone Gagandeep Hinojosa MD Primary Care Provider Reason for Visit Reason Comments HC Face To Face Visit Encounter Details Date Type Department Care Team Description 11/04/2017 Care Coord [place] [facility] Deborah Rodrigues, [facility] Fa ce To Face Office Visit Medicine [facility] Visit [address] [place] 1415 [facility]. [facility] [place] [address] [place] [address] [phone] Social History Tobacco Use Types Packs/Day Years [...] this encounter Progress Notes Deborah Rodrigues, [facility] - 11/04/2017 9:00 AM CDT Care Coordination [...] Primary documented in this encounter Care Teams Certified Meeting Professional Relationship Specialty Start Date End Date Gagandeep Hinojosa MD PCP - General 05/17/12 1415 [facility] [place] [address] Vane Zarate Psychiatrist Psychiatry 03/22/12 [facility] Mental Health Psychotherapist 08/04/17 [facility] Lockstitch Front Edge Tape Sewer 09/13/17 documented as of this encounter
--- OUTSIDE RECORDS SUMMARY | 2022-03-14 18:42 | XMS_ITS | Encounter Summary ---
:1970 Author [facility] Address [address], [place] [address] Care Team Providers Name Role Phone Gagandeep Hinojosa MD Primary Care Provider Reason for Visit Reason Comments HC Face To Face Visit Encounter Details Date Type Department Care Team Description 02/15/2018 Care Coord [place] [facility] Judy Pittman RN [facility] Face To Face Office Visit Medicine 1415 [facility] Visit [address]15 [place] [address] [phone] Social History Tobacco Use Types Packs/Day Years [...] RN - 02/15/2018 11:00 AM CDT RN Crate Liner Visit Pt: Timur Krishnamurthy Referred by: Gagandeep [...] is a joint visit with Lesly Rodrigues, [facility] Crate Liner. Mental Health and Smoking Cessation See Lesly's [...] Continue using sliding scale, as prescribed. RN Crate Liner as needed for questions. Scheduled follow up on 02/28/18, bring BG readings. Rustam to call if symptoms of hypoglycemia or readings < 70 mg/dL. Rustam verbalized understanding and agreed with plan of care and follow up. documented in this encounter Plan of Treatment Not on filedocumented as of this encounter Visit Diagnoses Diagnosis Health usp, active care coordinati on - Primary Type 2 diabetes mellitus with insulin th fan (HRC) documented in this encounter Care Teams Physician General Practice Relationship Specialty Start Date End Date Gagandeep Hinojosa MD PCP - General 05/17/12 1415 [facility] [place] [address] Vane Zarate Psychiatrist Psychiatry 03/22/12 [facility] Psychotherapist 08/04/17 [facility] Cnc Mill And Lathe Operator 09/13/17 documented as of this encounter
--- OUTSIDE RECORDS SUMMARY | 2022-03-14 18:42 | XMS_ITS | Encounter Summary ---
:1970 Author [facility] Address [address] [place] [address] Care Team Providers Name Role Phone Gagandeep Michaud MD Primary Care Provider Reason for Visit Reason Onset Date Comments Refill 06/07/2018 amLODIPine (NORVASC) 10 MG tablet Encounter Details Date Type Department Care Team Description 06/07/2018 Refill [facility] Gagandeep Michaud, Refil l (amLODIPine Medicine (NORVASC) 10 MG tablet) 1415 [facility] . [address] [place] [address] [place], [place] [address] (Wo rk) Social History Tobacco Use Types [...] mouth two times a day with meals. C IRON WORKER Interface, Out [employer] Prov Query - 06/07/2018 3:36 PM CST [...] : 8 % on 01/19/2018 Powered by [employer], Reference: [id number], 06/07/2018 3:36:01 PM C IRON WORKER, Pool: MANUEL REFILL ([id number]) C IRON WORKER documented in this encounter Plan of Treatment Not on filedocumented as of this encounter Visit Diagnoses Diagnosis Uncontrolled type 2 diabetes mellitus wi thout complication, without long-term current use of insulin documented in this encounter Care Teams Senior Controls Analyst Relationship Specialty Start Date End Date Gagandeep Michaud MD PCP - General 05/17/12 [address] [place] [address] Vane Zarate Psychiatrist Psychiatry 03/22/12 [facility] Psychotherapist 08/04/17 [facility] Title I Math Tutor 09/13/17 documented as of this encounter
--- OUTSIDE RECORDS SUMMARY | 2022-03-14 18:42 | XMS_ITS | Encounter Summary ---
:1970 Author Organization [facility] Address [address], [place] [address] Care Team Providers Name Role Phone Gagandeep Hinojosa MD Primary Care Provider Reason for Visit Reason Onset Date Comments Refill 01/11/2018 Encounter Details Date Type Department Care Team Description 01/11/2018 Telephone [facility] Gagandeep Hinojosa MD Refill 1415 [facility] . [address] [place] [address] [place], [place] [address] (Wo rk) Social History Tobacco Use Types [...] 11:01 AM CDT I will route to rn progressive care unit as he has appt with her tomorrow. [...] 01/26/2018 11:38 AM CDT Performed at [facility], [address] [place] [address] CLIA number [id number] Gagandeep Hinojosa MD LAB_1 Performing Organization Address City/State/ZIP Code Phon e Number PN SOFT [address] [place] [address] documented in this encounter Visit Diagnoses Diagnosis Hyperkalemia - Primary Hyperpotassemia Uncontrolled type 2 diabetes mellitus wi th microalbuminuria, with long-term current use of insulin Hyperkalemia Hyperpotassemia documented in this encounter Care Teams Line Appliance Assembler Relationship Specialty Start Date End Date Gagandeep Hinojosa MD PCP - General 05/17/12 [address] [place] [address] Vane Zarate Psychiatrist Psychiatry 03/22/12 [facility] Psychotherapist 08/04/17 [facility] Supervisor Word Processing 09/13/17 documented as of this encounter
--- OUTSIDE RECORDS SUMMARY | 2022-03-14 18:42 | XMS_ITS | Encounter Summary ---
:1970 Author Organization [facility] Address [address] [place] [address] Care Team Providers Name Role Phone Gagandeep Hinojosa MD Primary Care Provider Reason for Referral (Routine) - Closed Specialty Diagnoses / Procedures Referred By Contact Refer red To Contact Diagnoses Chest pain, unspecified type Kailash Green DO Procedures Outreach Echocardiogram [address] [place] [address] Referral ID Status Reason Start Date Expiration Date Visits Requ ested Visits Authorized [id number] Closed 06/19/2018 09/18/2019 1 1 P CONTROLLER Encounter Details Date Type Department Care Team Description 06/02/2018 Hospital Encounter Heart & Vascular Chest pain, unspecified Center Echocardiogra m type (Primary Dx) [address] [place] [address] Social History Tobacco Use Types Packs/Day Years [...] EVERY DAY tabletIndications: ASHD (arteriosclerotic heart disease) ([facility]), Hyperlipidemia with target LDL less than 70 ([facility]) blood glucose (ONE Use to test [...] by mouth 0 12/2408/28/2019 MG capsule daily. [place] Carbonate 600 Take 600 mg by mouth [...] Results ECHO COMPLETE W CONTRAST ( (Order [id number]) Original Order Diagnosis: CHEST PAIN, CHEST PRESSURE, CHEST TIGHTENING Reading Provider(s) Marilu Charles MD PACs images are not viewable in [employer] Link. See text report below. 06/02/2018 1:30 PM - Marilu Charles MD Narrative & Impression DATE OF STUDY: 06/02/2018 PROCEDURE: 2D echo, spectral Doppler, color flow. Lumason contrast. INDICATION FOR STUDY: Chest pain, pressure, tightening. TECH INITIALS: HH AGE: 48 y.o. [...] Mean PG - mmHg Marilu Charles M.D. Property Disposal Manager ANIYAH/[place] / Lab and Collection ECHO COMPLETE W CONTRAST on 06/02/2018 Result History ECHO COMPLETE W CONTRAST on 06/02/2018 - Result Edited Hard Copy Result Report Open Hard Copy Results Report Removed from In Basket Done By Kailash Green DO on 06/03/2018 9:10 PM Patient Release Status: This result is not viewable by the patient. Patient Information Patient Name Timur Krishnamurthy ([id number]) Sex Male Room Bed Code Status 2214 P CONTROLLER documented in this encounter Plan of Treatment Not on filedocumented as of this encounter Procedures Procedure Name Priority Date/Time Associated Comments Diagnosis OUTREACH ECHOCARDIOGRAM Routine 06/02/2018 9:51 Chest pain, R esults for this AM GROUP CONTROLLER unspecified type procedure a re in the results section. documented in this encounter Results Outreach Echocardiogram (06/02/2018 9:51 AM GROUP CONTROLLER) Narrative PN POCT - 06/02/2018 9:51 AM GROUP CONTROLLER Mis Mcneil ? 06/19/2018 ??9:52 AM Results ECHO COMPLETE W CONTRAST ( [id number]) (Order [id number]) Original Order Diagnosis: CHEST PAIN, CH EST PRESSURE, CHEST TIGHTENING Reading Provider(s) Marilu Charles MD PACs images are not viewable in [employer] Link. See text report below. 06/02/2018 1:30 [...] Mean PG - mmHg Marilu Charles M.D. Property Disposal Manager ANIYAH/[place] / ?? Lab and Collection ECHO COMPLETE W CONTRAST on 06/02/2018 Result History ECHO COMPLETE W CONTRAST on 06/02/2018 - R esult Edited Hard Copy Result Report Open Hard Copy Results Report Removed from In Basket Done By Kailash Green DO on 06/03/2018 9:1 0 PM Patient Release Status: This result is not viewable by the [facility]. Patient Information Patient Name Timur Krishnamurthy ([id number]) Sex Male Room Bed Code Status 2214 ?? Procedure Note Mis Mcneil - 06/19/2018 9:51 AM GROUP CONTROLLER Results ECHO COMPLETE W CONTRAST ( 25227) (Order [id number]) Original Order Diagnosis: CHEST PAIN, CH EST PRESSURE, CHEST TIGHTENING Reading Provider(s) Marilu Charles MD PACs images are not viewable in [employer] Link. See text report below. 06/02/2018 1:30 [...] Mean PG - mmHg Marilu Charles M.D. Property Disposal Manager ANIYAH/[place] / Lab and Collection ECHO COMPLETE [...] humphrey. Patient Information Patient Name Timur Krishnamurthy ([id number]) Sex Male Room Bed Code Status 2214 Kailash Green DO PN ECHO ORDERABLES Performing Organization Address City/State/ZIP Code Phon e Number POCT PN POCT documented in this encounter Visit Diagnoses Diagnosis Chest pain, unspecified type - Primary documented in this encounter Care Teams Method Consultant Relationship Specialty Start Date End Date Gagandeep Hinojosa MD PCP - General 05/17/12 1415 [facility] [place] [address] Vane Zarate Psychiatrsamantha Psychiatry 03/22/12 [facility] Psychotherapist 08/04/17 [facility] CM Shirt Trimmer 09/13/17 documented as of this encounter
--- OUTSIDE RECORDS SUMMARY | 2022-03-14 18:42 | XMS_ITS | Encounter Summary ---
:1970 Author Organization [facility] Address [address] [place] [address] Care Team Providers Name Role Phone Gagandeep Hinojosa MD Primary Care Provider Reason for Visit Reason Comments [facility] Phone Visit Encounter Details Date Type Department Care Team Description 11/11/2017 Care Coord Phone [facility] Deborah Rodrigues, [facility] Phone Visit Medicine [facility] 1415 [facility] . [address] [place] [address] [place] [address] [phone] Social History Tobacco Use Types Packs/Day Years [...] Deborah Rodrigues, [facility] - 11/11/2017 8:46 AM CDT Tool Procurement Coordinator - Phone Call Contact with: Rustam [...] Rodrigues LICSW - 11/11/2017 8:45 AM CDT Tool Procurement Coordinator - Phone Call Contact with: Rustam [...] documented in this encounter Care Teams Passenger Interline Clerk Relationship Specialty Start Date End Date Gagandeep Hinojosa MD PCP - General 05/17/[address] [place], [place] [address] [address] Vane Zarate Psychiatrist Psychiatry 03/22/12 [facility] Psychotherapist 08/04/17 [facility] Financial Administrator 09/13/17 documented as of this encounter
--- OUTSIDE RECORDS SUMMARY | 2022-03-14 18:42 | XMS_ITS | Encounter Summary ---
:1970 Author Organization [facility] Address [address], [place] [address] Care Team Providers Name Role Phone Gagandeep Hinojosa MD Primary Care Provider Reason for Visit Reason Comments HC Face To Face Visit Encounter Details Date Type Department Care Team Description 10/06/2017 [facility] [place] Deborah Rodrigues, [facility] Fa ce To Face Office Visit Medicine [facility] Visit [address] [place] [facility]. [facility] [place] [address] [place] [address] [phone] Social History Tobacco Use Types Packs/Day Years [...] [facility] - 10/06/2017 8:00 AM CDT Care Coordination Visit Pt: Timur Krishnamurthy Referred by: Gagandeep Hinojosa MD Reason for visit: Care Coordination Timur was seen alone. Discussion/actions: Met with Rustam for a scheduled [facility] appointment. 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 I [...] is planning on going to see the entertainment & media correspondent today at 9:15, and agreedto update RN Director Digital Catalogue, Judy Pittman, of the results of the [...] Primary documented in this encounter Care Teams Digital Proofing And Platemaker Relationship Specialty Start Date End Date Gagandeep Hinojosa MD PCP - General 05/17/12 1415 [facility] [place] [address] Vane Zarate Psychiatrist Psychiatry 03/22/12 [facility] Mental Health Psychotherapist 08/04/17 [facility] CM Homicide Squad Sergeant 09/13/17 documented as of this encounter
--- OUTSIDE RECORDS SUMMARY | 2022-03-14 18:42 | XMS_ITS | Encounter Summary ---
:1970 Author Organization [facility] Address [address] [address] Care Team Providers Name Role Phone Gagandeep Hinojosa MD Primary Care Provider Encounter Details Date Type Department Care Team Description 01/26/2018 Lab Visit [facility] Hyperkalemia [address] [place] [address] Social History Tobacco Use Types Packs/Day [...] - 01/26/2018 11:38 AM CDT Performed at [facility], [address] [place] [address] CLIA number [id number] Gagandeep Hinojosa MD LAB_1 Performing Organization Address City/State/ZIP Code [facility] e Number PN SOFT [address] [place] [address] [phone] documented in this encounter Visit Diagnoses Diagnosis Hyperkalemia Hyperpotassemia documented in this encounter Care Teams Senior Research Manager Relationship Specialty Start Date End Date Gagandeep Hinojosa MD PCP - General 05/17/12 [address] [place] [address] Vane Zarate Psychiatrist Psychiatry 03/22/12 [facility] Psychotherapist 08/04/17 [facility] Rn Intensive Care Unit 09/13/17 documented as of this encounter
--- OUTSIDE RECORDS SUMMARY | 2022-03-14 18:42 | XMS_ITS | Encounter Summary ---
:1970 Author Organization [facility] Address [address], [place] [address] Care Team Providers Name Role Phone Gagandeep Hinojosa MD Primary Care Provider Reason for Visit Reason Comments HC Face To Face Visit Encounter Details Date Type Department Care Team Description 01/26/2018 Care Coord [facility] Deborah Rodrigues, [facility] Fa ce To Face Office Visit Medicine [facility] Visit [address]15 [facility]. [facility] [place] [address] [place] [address] [phone] Social History Tobacco Use Types Packs/Day Years [...] [facility] - 01/26/2018 10:00 AM CDT Care Coordination Visit Pt: Timur Krishnamurthy Referred by: Gagandeep Hinojosa MD Reason for visit: Care Coordination Timur was seen alone. Discussion/actions: Met with Rustam for a scheduled [facility] appointment. RN Electric Motor Repairing Supervisor, Judy Pittman, was present for the appointment. [...] starting to attend a Tuesday group through [facility], as it is not affordable for him to attend an IOP program. Rustam is also thinking about the possibility of attending an adult day program, if his MH CM can get funding through the [facility]. Rustam stated that he has not come [...] stated that he continues to not smoke, whichramye is very proud of. He denied any [...] Primary documented in this encounter Care Teams Swing Frame Grinder Operator Relationship Specialty Start Date End Date Gagandeep Hinojosa MD PCP - General 05/17/12 1415 [place] [address] Vane Zarate Psychiatrist Psychiatry 03/22/12 [facility] Psychotherapist 08/04/17 [facility] Barn Operator 09/13/17 documented as of this encounter
--- OUTSIDE RECORDS SUMMARY | 2022-03-14 18:42 | XMS_ITS | Encounter Summary ---
:1970 Author Organization [facility] Address [address], [place] [address] Care Team Providers Name Role Phone Gagandeep Hinojosa MD Primary Care Provider Reason for Visit Reason Comments HC Face To Face Visit Encounter Details Date Type Department Care Team Description 02/15/2018 [facility] Coord [facility] Deborah Rodrigues, [facility] Fa ce To Face Office Visit Medicine [facility] Visit [address] [facility]. [facility] [place] [address] [place] [address] [phone] Social History Tobacco Use Types Packs/Day Years Used Date Smoking Tobacco: Former Cigarettes 1 25 Smokeless Tobacco: Former Qu it: 10/25/2012 Comments: Smoking History Packs/day: Alcohol Use Standard Drinks/Week Comments No 0 (1 standard drink = 0.6 oz pure Alcoho lic Drinks/day: Amount:0; alcohol) Freq:Never; Sex Assigned at Date Recorded Not on file documented as of this encounter Progress Notes Deborah Rodrigues, [facility] - 02/15/2018 11:00 AM CDT Care Coordination Visit Pt: Timur Krishnamurthy Referred by: Gagandeep Hinojosa MD Reason for visit: Care Coordination Timur was seen alone. Discussion/actions: Met with Rustam for a scheduled [facility] appointment. RN Watchstander, Judy Pittman, was present for the appointment. [...] Rustam did say that he attends the [employer] once a week, and feels like [...] more stable mentally. Rustam scheduled a follow-up [facility] appointment for next week and will call [...] Primary documented in this encounter Care Teams Superintendent Measurement Relationship Specialty Start Date End Date Gagandeep Hinojosa MD PCP - General 05/17/12 [address] [place] [address] Vane Zarate Psychiatrist Psychiatry 03/22/12 [facility] Mental Health Psychotherapist 08/04/17 [facility] Telephone Answering Service Operator 09/13/17 documented as of this encounter
--- OUTSIDE RECORDS SUMMARY | 2022-03-14 18:42 | XMS_ITS | Encounter Summary ---
:1970 Author Organization [facility] Address [address] [place] [address] Care Team Providers Name Role Phone Gagandeep Hinojosa MD Primary Care Provider Reason for Referral Procedure/Equipment (Routine) - Closed Specialty Diagnoses / Procedures Referred By Contact Refer red To Contact Diagnoses Type 2 diabetes mellitus with diabetic neuropathy, unspecified whether fdc insulin use (HRC) History of diabetic ulcer of foot Edward Nino DPM [address] [place], [place] [address] Referral ID Status Reason Start Date Expiration Date Visits Requ ested Visits Authorized [id number] Closed 10/08/2017 01/07/2019 1 1 Scheduling Instructions Your provider has recommended an appoint ment with [facility]. You may call [phone] t o schedule your appointment. If you [...] of skin (HRC) Gagandeep Hinojosa MD [address] [place] [address] Referral ID Status Reason Start Date Expiration Date Visits Requ ested Visits Authorized [id number] Closed 08/15/2017 11/14/2018 1 1 Encounter Details Date Type Department Care Team Description 10/06/2017 Initial Consult [place] 16[address] Edward Nino, Type 2 diabetes mellitus with diabetic neuropathy, unspecified whether fdc insulin use (HRC) (Primary Dx); Podiatric MedSurg DPSimi History of diabetic ulcer of foot [address] [place] [address] [facility] 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 He does smoke a pack of [...] go to a foot care nurse at [place]. Follow up with me as needed. LATA:BREANNA C: CONFIRM #: [id number] documented in this encounter Plan of Treatment Scheduled Referrals Name Type Priority Associated Diagnoses Order S chedule Orthotics Order Referral Routine Type 2 diabetes mellitus with Ordered: 10/08/2017 diabetic neuropathy, unspecified whether long ter m insulin use (HRC ) History of diabetic ulcer of foot documented as of this encounter Visit Diagnoses Diagnosis Type 2 diabetes mellitus with diabetic n europathy, unspecified whether bed bug exterminator insulin use (HRC) - Primary History of diabetic ulcer of foot documented in this encounter Care Teams Strategic Solutions Consultant Relationship Specialty Start Date End Date Gagandeep Hinojosa MD PCP - General 05/17/12 [facility] [place] [address] Vane Zarate Psychiatrist Psychiatry 03/22/12 [facility] Psychotherapist 08/04/17 [facility] Power Electronics Engineer 09/13/17 documented as of this encounter
--- OUTSIDE RECORDS SUMMARY | 2022-03-14 18:42 | XMS_ITS | Encounter Summary ---
:1970 Author Organization [facility] Address [address] [address] Care Team Providers Name Role Phone Gagandeep Hinojosa MD Primary Care Provider Encounter Details Date Type Department Care Team Description 01/16/2018 Lab Visit [facility] Hyponatremia 14[address] [facility] [place], [place] [address] Social History Tobacco Use Types Packs/Day Years [...] - 01/16/2018 6:36 PM CDT Performed at [facility], [address] [place] [address] CLIA number [id number] Gagandeep Hinojosa MD LAB_1 Performing Organization Address City/State/ZIP Code Phon e Number PN SOFT [address] [place] [address] documented in this encounter Visit Diagnoses Diagnosis Hyponatremia Hyposmolality and/or hyponatremia documented in this encounter Care Teams Dental Technician Instructor Relationship Specialty Start Date End Date Gagandeep Hinojosa MD PCP - General 05/17/12 [address] [place], [place] [address] Vane Zarate Psychiatrist Psychiatry 03/22/12 [facility] Psychotherapist 08/04/17 [facility] Electrical Integrator 09/13/17 documented as of this encounter
--- OUTSIDE RECORDS SUMMARY | 2022-03-14 18:42 | XMS_ITS | Encounter Summary ---
:1970 Author Organization [facility] Address [address] [place] [address] Care Team Providers Name Role Phone Gagandeep Hinojosa MD Primary Care Provider Reason for Visit Reason Comments Refill lisinopril (ZESTRIL) 10 MG t ablet [Pharmacy Med Name: LISINOPRIL 10 MG TABLET] Encounter Details Date Type Department Care Team Description 12/05/2017 Refill Serge Daniels Refil l (lisinopril Medicine (ZESTRIL) 10 MG tablet [address] 1415 [facility] [Pharmacy Med Name: [place] [address] [place] [address] LISINOPRIL 10 MG [phone] (Wo rk) TABLET]) Social History Tobacco Use [...] TABLET BY MOUTH EVERY DAY. Interface, Out [employer] Prov Query - 12/05/2017 9:54 PM CDT [...] K: 5 mEq/L on 04/29/2017 Powered by [employer], Reference: [id number], 12/05/2017 9:54:33 PM CDT, Pool: MANUEL MOORE ([id number]) documented in this encounter Plan of Treatment Not on filedocumented as of this encounter Visit Diagnoses Diagnosis Essential hypertension (HRC) Unspecified essential hypertension documented in this encounter Care Teams Lobbyist Relationship Specialty Start Date End Date Gagandeep Hinojosa MD PCP - General 05/17/12 1415 [facility] [place] [address] Vane Zarate Psychiatrist Psychiatry 03/22/12 [facility] Mental Health Psychotherapist 08/04/17 [facility] Set Key Driver 09/13/17 documented as of this encounter
--- OUTSIDE RECORDS SUMMARY | 2022-03-14 18:42 | XMS_ITS | Encounter Summary ---
:1970 Author Organization [facility] Address [address] [place] [address] Care Team Providers Name Role Phone Gagandeep Hinojosa MD Primary Care Provider Reason for Visit Reason Comments Lab Questions Encounter Details Date Type Department Care Team Description 01/23/2018 [facility] Gagandeep Hinojosa MD Lab Questions 1415 [facility] . [address] [place] [address] [place] [address] [phone] (Wo rk) Social History Tobacco Use Types [...] list reviewed as related to this call. Gavin Reyes - 01/23/2018 9:59 AM CDT [...] on filedocumented in this encounter Care Teams Christian Education Director Relationship Specialty Start Date End Date Gagandeep Hinojosa MD PCP - General 05/17/12 [facility] [place] [address] Vane Zarate Psychiatrist Psychiatry 03/22/12 [facility] Psychotherapist 08/04/17 [facility] Strategic Sourcing 09/13/17 documented as of this encounter
--- OUTSIDE RECORDS SUMMARY | 2022-03-14 18:42 | XMS_ITS | Encounter Summary ---
:1970 Author Organization [facility] Address [address], [place] [address] Care Team Providers Name Role Phone Gagandeep Hinojosa MD Primary Care Provider Reason for Visit Reason Comments [facility] Face To Face Visit Encounter Details Date Type Department Care Team Description 09/22/2017 Care Coord [place] [facility] Deborah Rodrigues, [facility] Fa ce To Face Office Visit Medicine [facility] Visit [address] [place] [address] [facility]. [facility] [place] [place] [address] [place] [address] [phone] Social History Tobacco Use Types Packs/Day Years [...] Notes Deborah Rodrigues, [facility] - 09/22/2017 10:00 AM CDT Care [...] at this time and scheduled a follow-up [facility] appointment in 2 weeks. This note was [...] process ? SHARED PLAN: - CM appointment 09/29 at 9:30. -[facility] appointment 10/06 at 8:00. -Therapy appointment weekly. Pt verbalized understanding and agreed with plan of care and follow up. documented in this encounter Plan of Treatment Not on filedocumented as of this encounter Visit Diagnoses Diagnosis Health skilled nursing, active care coordinati on - Primary documented in this encounter Care Teams Handicraft Or Hobby Shop Manager Relationship Specialty Start Date End Date Gagandeep Hinojosa MD PCP - General 05/17/12 [facility] [place] [address] Vane Zarate Psychiatrist Psychiatry 03/22/12 [facility] Psychotherapist 08/04/17 [facility] Plug Paster 09/13/17 documented as of this encounter
--- OUTSIDE RECORDS SUMMARY | 2022-03-14 18:42 | XMS_ITS | Encounter Summary ---
:1970 Author Organization [facility] Address [address] [place] [address] Care Team Providers Name Role Phone Gagandeep Hinojosa MD Primary Care Provider Reason for Visit Reason Comments [facility] Face To Face Visit Encounter Details Date Type Department Care Team Description 01/26/2018 Care Coord Judy Luke RN [facility] Face To Face Office Visit Medicine 1415 [facility] Visit [address] [place] [address] [phone] Social History Tobacco Use Types Packs/Day Years [...] RN - 01/26/2018 10:00 AM CDT RN Inbound Customer Service Agent Visit Pt: Timur Krishnamurthy Referred by: Gagandeep [...] Finance, Emotional and Transportation. BG Goals: Health Retirement Lab Goal <7 [...] SMBG qid as directed, record readings. RN Inbound Customer Service Agent as needed for questions. Scheduled follow up [...] insulin documented in this encounter Care Teams Forging Dies Final Finisher Relationship Specialty Start Date End Date Gagandeep Hinojosa MD PCP - General 05/17/12 1415 [facility] [place] [address] Vane Zarate Psychiatrsamantha Psychiatry 03/22/12 [facility] Health Psychotherapist 08/04/17 [facility] Soil Specialist 09/13/17 documented as of this encounter
--- OUTSIDE RECORDS SUMMARY | 2022-03-14 18:42 | XMS_ITS | Encounter Summary ---
:1970 Author Organization [facility] Address [address], [place] [address] Care Team Providers Name Role Phone Gagandeep Michaud MD Primary Care Provider Reason for Visit Reason Onset Date Comments Refill 06/07/2018 amLODIPine (NORVASC) 10 MG tablet Encounter Details Date Type Department Care Team Description 06/07/2018 Refill [place] [facility] Gagandeep Michaud, Refil l (amLODIPine Medicine (NORVASC) 10 MG tablet) 1415 [facility] . [address] [place] [address] [place], [place] [address] (Wo rk) Social History Tobacco Use Types [...] med check for further refills per provider. P RESERVATIONS COORDINATOR Gagandeep Michaud MD - 06/08/2018 10:28 AM CST Call patient P RESERVATIONS COORDINATOR Merlyn Urias RN - 06/08/2018 10:27 AM [...] Sig: Take 1 Tablet by mouth daily. P RESERVATIONS COORDINATOR Interface, Out [employer] Prov Query - 06/07/2018 [...] 76 mm Hg on 01/16/2018 Powered by [employer], Reference: [id number], 06/07/2018 3:34:49 PM GROUP RESERVATIONS COORDINATOR, Pool: MANUEL MOORE ([id number]) P RESERVATIONS COORDINATOR documented in this encounter Plan of Treatment Not on filedocumented as of this encounter Visit Diagnoses Diagnosis Uncontrolled type 2 diabetes mellitus wi thout complication, without long-term current use of insulin documented in this encounter Care Teams Repeater Chief Relationship Specialty Start Date End Date Gagandeep Michaud MD PCP - General 05/17/12 [facility] [place] [address] Vane Zarate Psychiatrist Psychiatry 03/22/12 [facility] Psychotherapist 08/04/17 [facility] Cook Mess 09/13/17 documented as of this encounter
--- NOTE | 2022-03-14 18:43 | ED.NURSE ---
report to Radha at [facility]
--- OUTSIDE RECORDS SUMMARY | 2022-03-14 18:43 | XMS_ITS | Encounter Summary ---
:1970 Author Organization [facility] Address [address] [place] [address] Care Team Providers Name Role Phone Gagandeep Hinojosa MD Primary Care Provider Reason for Visit Reason Comments HC Face To Face Visit Encounter Details Date Type Department Care Team Description 09/01/2017 Care Coord [facility] Judy Pittman RN [facility] Face To Face Office Visit Medicine 1415 [facility] Visit [address]15 [facility] [place] [address] [phone] Social History Tobacco Use Types Packs/Day Years [...] RN - 09/01/2017 11:00 AM CDT RN [employer] Worker Visit Pt: Timur Krishnamurthy Referred by: [...] is a joint visit with ERLIN Salas [employer] Work[employer]. Mental Health Because of the complexity of Rustam's mental health, I recommended including ERLIN Salas [employer] Worker in our visits for additional support. Please [...] the meantime, Rustam has met with aninsurance law researcher plans to enroll in a supplemental Medicare [...] Since then, Rustam was seen at the [facility] ED last Tuesday and dx with [...] prison, active care coordinati on - Primary Uncontrolled type 2 diabetes mellitus wi th microalbuminuria, with long-term current use of insulin documented in this encounter Care Teams Shoemaking Finisher Relationship Specialty Start Date End Date Gagandeep Hinojosa MD PCP - General 05/17/12 [facility] [place] [address] Vane Zarate Psychiatrist Psychiatry 03/22/12 [facility] Psychotherapist 08/04/17 documented as of this encounter
--- OUTSIDE RECORDS SUMMARY | 2022-03-14 18:43 | XMS_ITS | Encounter Summary ---
:1970 Author Organization [facility] Address [address] [place] [address] Care Team Providers Name Role Phone Gagandeep Hinojosa MD Primary Care Provider Reason for Visit Reason Comments SLEEP PROBLEM--ED Medication Problems Encounter Details Date Type Department Care Team Description 04/28/2017 Nurse Triage [facility] Gagandeep Hinojosa SLEEP HI OBLEM--ED; Romario Rubio MD Medication Problems [address] [place] [address] Ave [phone] [place] [address] Social History Tobacco Use [...] daily living) Protocols used: ANXIETY AND PANIC [id number], BIPOLAR DISORDER (MANIC DEPRESSION)-ADULT-AH Spoke to patient. [...] 04/29/2017 10:30 AM Gagandeep Hinojosa MD [facility] MANUEL OR BUSINESS OBJECTS DEVELOPER Vivienne Gifford - 04/28/2017 10:55 AM CST Pt calling to speak to a nurse about concerns with sleeping problems, pt States recently started [employer] And could be contributing to concerns., please assist. OR BUSINESS OBJECTS DEVELOPER documented in this encounter Plan of Treatment Not on filedocumented as of this encounter Visit Diagnoses Not on filedocumented in this encounter Care Teams Modeling Agency Manager Relationship Specialty Start Date End Date Gagandeep Hinojosa MD PCP - General 05/17/12 [facility]5 [facility] [place] [address] Vane Zarate Psychiatrist Psychiatry 03/22/12 documented as of this encounter
--- OUTSIDE RECORDS SUMMARY | 2022-03-14 18:43 | XMS_ITS | Encounter Summary ---
:1970 Author Organization [facility] Address [address] [place] [address] Care Team Providers Name Role Phone Gagandeep Hinojosa MD Primary Care Provider Reason for Visit Reason Comments [facility] Phone Visit Encounter Details Date Type Department Care Team Description 09/05/2017 Care Coord Phone [facility] Deborah Rodrigues, [facility] Phone Visit Medicine [facility] 1415 [facility] . [address] [place] [address] [place] [address] [phone] Social History Tobacco Use Types Packs/Day Years Used Date Smoking Tobacco: Every Day Cigarettes 1 25 Smokeless Tobacco: Former Qu it: 10/25/2012 Comments: Smoking History Packs/day: Alcohol Use Standard Drinks/Week Comments No 0 (1 standard drink = 0.6 oz pure Alcoho lic Drinks/day: Amount:0; alcohol) Freq:Never; Sex Assigned at Date Recorded Not on file documented as of this encounter Progress Notes Deborah Rodrigues, [facility] - 09/05/2017 10:30 AM CDT International Specialist - Phone Call Contact with: Rustam Reason for call: Care Coordination Discussion/actions: Received a phone message from Rustam, that was forwarded from RN school childcare attendant, Judy Pittman. I called Rustam back, as we had previously discussed I would be his point of contact for anything other than his physical health. Rustam stated that he was at the [employer], so he could not talk long. [...] contain typographic or phonetic errors. Shared plan: -HC appointment 09/09 at 11:00. Pt verbalized understanding and agreed with plan of care and follow up. documented in this encounter Plan of Treatment Not on filedocumented as of this encounter Visit Diagnoses Diagnosis Health correction, active care coordinati on - Primary documented in this encounter Care Teams Reservations Sales Supervisor Relationship Specialty Start Date End Date Gagandeep Hinojosa MD PCP - General 05/17/[address] [facility] [place] [address] Vane Zarate Psychiatrist Psychiatry 03/22/12 [facility] Mental [facility] Psychotherapist 08/04/17 documented as of this encounter
--- OUTSIDE RECORDS SUMMARY | 2022-03-14 18:43 | XMS_ITS | Encounter Summary ---
:1970 Author Organization [facility] Address [address] [place] [address] Care Team Providers Name Role Phone Gagandeep Hinojosa MD Primary Care Provider Reason for Visit Reason Comments [facility] Phone Visit Encounter Details Date Type Department Care Team Description 09/09/2017 Care Coord Phone [facility] Deborah Rodrigues, [facility] Phone Visit Medicine [facility] 1415 [facility] . [address] [place] [address] [place] [address] [phone] Social History Tobacco Use Types Packs/Day Years [...] this encounter Progress Notes Deborah Rodrigues, [facility] - 09/09/2017 8:00 AM CDT Corrosion Technician - Phone Call Contact with: Rustam [...] prior to his next appointment. Shared plan: -[facility] appointment 09/13 at 8:00. Pt verbalized understanding and agreed with plan of care and follow up. documented in this encounter Plan of Treatment Not on filedocumented as of this encounter Visit Diagnoses Diagnosis Health longterm, active care coordinati on - Primary documented in this encounter Care Teams Media Job Titles Relationship Specialty Start Date End Date Gagandeep Hinojosa MD PCP - General 05/17/12 1415 [facility] [place] [address] Vane Zarate Psychiatrist Psychiatry 03/22/12 [facility] Mental [facility] Psychotherapist 08/04/17 documented as of this encounter
--- OUTSIDE RECORDS SUMMARY | 2022-03-14 18:43 | XMS_ITS | Encounter Summary ---
:1970 Author Organization [facility] Address [address] [place] [address] Care Team Providers Name Role Phone Gagandeep Hinojosa MD Primary Care Provider Reason for Visit Reason Comments HC Face To Face Visit Encounter Details Date Type Department Care Team Description 06/20/2017 Care Coord [facility] Judy Pittman RN [facility] Face To Face Office Visit Medicine 1415 [facility] Visit [address] [facility] [place] [address] [phone] Social History Tobacco Use Types Packs/Day Years [...] RN - 06/20/2017 1:00 PM CST RN Sales And Operations Trainee Visit Pt: Timur Krishnamurthy Referred by: Gagandeep [...] of 8:00-4:00, 3 days a week, in [place]. I reminded Rustam that he needs hayley [...] supplemental insurance and pays the remaining 20% [id number], using his spouse's HSA. I previously recommended [...] rather he is periodically [facility] at the [facility] 2-3 times a week. He wants to do more, but has struggled. I reminded Rustam of the importance of physical activity with glucose control. Smoking Cessation Rustam smells strongly of cigarette smoke again. He reports he continues to work with a telephonic softball coach on smoking cessation. He is happy [...] choices per meal. Continue to work with softball coach to decrease the number of cigarettes smoked per day. Research supplemental insurance coverage with spouse's HR. Follow up scheduled on 07/12/17, bring readings. Rustam to call if symptoms of hypoglycemia or readings < 70 mg/dL. Rustam verbalized understanding and agreed with plan of care and follow up. RION ANALYST documented in this encounter Plan of Treatment Not on filedocumented as of this encounter Visit Diagnoses Diagnosis Health jail, active care coordinati on - Primary Uncontrolled type 2 diabetes mellitus wi th hyperglycemia, with long-term current use of insulin (HRC) Bipolar I disorder (HRC) Bipolar I disorder, most recent episode (or current) unspecified documented in this encounter Care Teams Nursery Technician Relationship Specialty Start Date End Date Gagandeep Hinojosa MD PCP - General 05/17/12 [address] [place] [address] Vane Zarate Psychiatrist Psychiatry 03/22/12 documented as of this encounter
--- OUTSIDE RECORDS SUMMARY | 2022-03-14 18:43 | XMS_ITS | Encounter Summary ---
:1970 Author Organization [facility] Address [address], [place] [address] Care Team Providers Name Role Phone Gagandeep Hinojosa MD Primary Care Provider Reason for Referral Consult/Transfer Care (Routine) - Closed Specialty Diagnoses / Procedures Referred By Contact Refer red To Contact Diagnoses Toenail fungus Type 2 diabetes mellitus with left diabetic foot ulcer (HRC) Gagandeep Hinojosa MD [facility] MED CNTR OUTP [address] [facility] [address] [facility] [address] [place] [address] [place] [phone] Referral ID Status Reason Start Date Expiration Date Visits Requ ested Visits Authorized [id number] Closed 08/18/2017 02/14/2018 1 1 Scheduling Instructions [...] Face To Face Office Visit Medicine [address] [facility] Visit [address] [address] Social History Tobacco Use Types Packs/Day [...] He agrees to the foot/nail care at [facility]. Order faxed to Khoa at [phone]. Judy Pittman RN - 08/18/2017 9:00 AM CDT RN Gunstock Repairer Visit Pt: Timur Krishnamurthy Referred by: [...] yet. He describes himself as revved up. Rustma continues to see his [facility] therapist every Tuesday and notes [...] place including monthly psychiatry, weekly therapy, weekly [facility], and [facility] walk-in every Tuesday. Rustam previously worked with Case Management through [facility] and we called [facility] together during our last visit. He states he has not connected with [facility] since, so he agrees to stop by and hand picker the application after our visit today. Rustam understands that his mental healthis his top priority at this time, so we won't be making any significant changes to his treatment plan until he is feeling more stable. Because of the complexity of Rustam's mental health, I suggested including eLsly Rodrigues, [facility] Gunstock Repairer in our visits for additional support. Rustam [...] Rustam states he met with an insurance salesman last week and has decided to apply [...] at work, but not walking at the [employer] anymore.He is interested in trying basketball. Rustam [...] Since then, Rustam was seen at the [facility] ED last Tuesday and dx with cellulitis, he continues to take antibiotics, and states he is feeling better. Rustam is not wearing the walking boot because he states they told him not to. However, he notes his toenails are long and sharp, needing to be trimmed. We discussed the importance offoot/nail care and I recommended he see Khoa at [facility] because of his DM, foot ulcer, [...] appt scheduled on 08/25/17. Complete paperwork for [facility] Electric Blanket Packer today. Send email to Dr Huff about [...] unspecified documented in this encounter Care Teams Mechanical Laboratory Technician Relationship Specialty Start Date End Date Gagandeep Hinojosa MD PCP - General 05/17/12 [address] [facility] [place] [address] Vane Zarate Psychiatrist Psychiatry 03/22/12 [facility] Mental [facility] Psychotherapist 08/04/17 documented as of this encounter
--- OUTSIDE RECORDS SUMMARY | 2022-03-14 18:43 | XMS_ITS | Encounter Summary ---
:[address] [address] Address [address] [place] [address] Care Team Providers Name Role Phone Gagandeep Hinojosa MD Primary Care Provider Reason for Visit Reason Comments Questions Encounter Details Date Type Department Care Team Description 08/06/2017 [facility] Gagandeep Hinojosa MD Questions [address] [facility] . [address] [place] [address] [place] [address] [phone] (Wo rk) Social History Tobacco Use Types [...] on filedocumented in this encounter Care Teams Farrowing Worker Relationship Specialty Start Date End Date Gagandeep Hinojosa MD PCP - General 05/17/[address] [place] [address] [place] [address] Vane Zarate Psychiatrist Psychiatry 03/22/12 [facility] Mental [facility] Psychotherapist 08/04/17 documented as of this encounter
--- OUTSIDE RECORDS SUMMARY | 2022-03-14 18:43 | XMS_ITS | Encounter Summary ---
:1970 Author Organization [facility] Address [address] [place] [address] Care Team Providers Name Role Phone Gagandeep Hinojosa MD Primary Care Provider Encounter Details Date Type Department Care Team Description 05/12/2017 Notes/Orders [facility] [address]ar, Endocrinology MBBS [address] [facility] [address] [place] [address] [place] [address] [phone] Social History Tobacco Use Types Packs/Day Years [...] 9:11 AM CST patient was admitted to [facility] for suicidal ideation. REINA Barrera PATIONAL WORK EXPERIENCE TEACHER documented in this encounter Plan of Treatment Not on filedocumented as of this encounter Visit Diagnoses Not on filedocumented in this encounter Care Teams Steel Loader Relationship Specialty Start Date End Date Gagandeep Hinojosa MD PCP - General 05/17/12 14[address] [facility] [place] [address] Vane Zarate Psychiatrist Psychiatry 03/22/12 documented as of this encounter
--- OUTSIDE RECORDS SUMMARY | 2022-03-14 18:43 | XMS_ITS | Encounter Summary ---
:1970 Author Organization [facility] Address [address] [place] [address] Care Team Providers Name Role Phone Gagandeep Hinojosa MD Primary Care Provider Reason for Referral Procedure/Equipment (Routine) - Closed Specialty Diagnoses / Procedures Referred By Contact Refer red To Contact Diagnoses Diabetic ulcer of left midfoot associated with type 2 diabetes mellitus, with muscle involvement without evidence of necrosis (HRC) Gagandeep Hinojosa MD Procedures Walking Boot [address] [place] [address] Referral ID Status Reason Start Date Expiration Date Visits Requ ested Visits Authorized [id number] Closed 08/05/2017 11/04/2018 1 1 Procedure/Equipment (Routine) - Incomplete Specialty Diagnoses / Procedures Referred By Contact Refer red To Contact Diagnoses Left foot pain Diabetic ulcer of left midfoot associated with type 2 diabetes mellitus, with muscle involvement without evidence of necrosis (HRC) Gagandeep Hinojosa MD Procedures XR Foot Lt 2 Views [address] [place] [address] Referral ID Status Reason Start Date Expiration Date Visits V isits Requested Authorized [id number] Incomplete 08/05/2017 11/04/2018 1 1 Reason for Visit Reason Comments EDEMA left lower leg Encounter Details Date Type Department Care Team Description 08/05/2017 Office Visit Yaritza Hinojosa, Gagandeep Left quiana t pain (Primary Dx); Romario Rubio MD Diabetic ulcer of left midfoot associate d with type 2 diabetes mellitus, with muscle involvement without evidence of necrosis (HRC); [address] [facility] [place] [address] [address] [phone] [place] [address] Social History Tobacco [...] Body Mass Index 30.56 04/05/2017 3:18 PM CARE SERVICES MANAGER documented in this encounter Progress Notes [...] List Diagnosis Date Noted ??? Tobacco abuse ([facility]) 02/24/2016 ??? Tinea versicolor 07/18/2015 ??? Tobacco use disorder ([facility]) 10/26/2012 ??? Anemia 05/02/2012 Overview Note: Anemia, unspecified ??? Health shelter, active care coordination 03/22/2012 Overview Note: Mushroom Press Operator: JOSETTE Yip [phone] Care coordination focus: T2DM, financial resources Living situation: lives with spouse Important notes: SSDI, significant insulin resistance, uses Relion insulin, commonly reaches Medicare Coverage Gap See care plan under Chart Review > [facility] > [facility] CARE PLAN REPORT ??? Microalbuminuria 02/04/2012 ??? AK, old ([facility]) 09/16/2011 ??? History of PTCA 09/16/2011 Overview Note: History of PTCA 04/2011 BMS RCA ??? Obesity, Class I, BMI 30-34.9 ([facility]) 09/16/2011 Overview Note: Body mass index is 31.16 kg/(m^2). ??? Hyperlipidemia with target LDL less than 70 ([facility]) 06/08/2011 Overview Note: Hyperlipidemia LDL goal < 70 ??? ASHD (arteriosclerotic heart disease) ([facility]) 05/04/2011 ??? Erectile dysfunction 01/22/2011 Overview Note: side effect Risperdal ??? Type 2 diabetes mellitus, uncontrolled ([facility]) 12/11/2010 Overview Note: Type II or unspecified type diabetes mellitus without mention of complication, uncontrolled ([facility]) ??? Dermatophytosis of body 09/04/2010 Class: Historical Overview Note: Tinea Corporis ??? Coronary atherosclerosis ([facility]) 12/22/2009 Overview Note: LW Modifier: mod RCA, negative nuclear stress test ; CAD ??? Nonspecific abnormal results of liver function study 12/22/2009 Overview Note: Liver Function Tests Abnormal ??? Bipolar I disorder ([facility]) 09/15/2005 Overview Note: LW Onset: [id number] ; Bipolar I Dis FAMILY HISTORY OR [...] (HRC) documented in this encounter Care Teams Maker Up Folding Relationship Specialty Start Date End Date Gagandeep Hinojosa MD PCP - General 05/17/12 [address] [place] [address] Vane Zarate Psychiatrist Psychiatry 03/22/12 [facility] Psychotherapist 08/04/17 documented as of this encounter
--- OUTSIDE RECORDS SUMMARY | 2022-03-14 18:43 | XMS_ITS | Encounter Summary ---
:1970 Author Organization [facility] Address [address] [place] [address] Care Team Providers Name Role Phone Gagandeep Hinojosa MD Primary Care Provider Reason for Visit Procedure/Equipment (Routine) - Incomplete Specialty Diagnoses / Procedures Referred By Contact Refer red To Contact Diagnoses Left foot pain Diabetic ulcer of left midfoot associated with type 2 diabetes mellitus, with muscle involvement without evidence of necrosis (HRC) Gagandeep Hinojosa MD Procedures XR Foot Lt 2 Views [address] [place] [address] Referral ID Status Reason Start Date Expiration Date Visits V isits Requested Authorized [id number] Incomplete 08/05/2017 11/04/2018 1 1 Encounter Details Date Type Department Care Team Description 08/05/2017 [facility] Gagandeep Hinojosa, Left foot pain; [address] Diabetic ulcer of left midfoot associate d with type 2 diabetes mellitus, with muscle involvement without evidence of necrosis (HRC) [place] [address] [address] [facility] [phone] [place] [phone] (Wo rk) Social History Tobacco Use [...] (HRC) documented in this encounter Care Teams Doughnut Fryer Relationship Specialty Start Date End Date Gagandeep Hinojosa MD PCP - General 05/17/12 [address] [place] [address] Vane Zarate Psychiatrist Psychiatry 03/22/12 [facility] Psychotherapist 08/04/17 documented as of this encounter
--- OUTSIDE RECORDS SUMMARY | 2022-03-14 18:43 | XMS_ITS | Encounter Summary ---
:1970 Author Organization [facility] Address [address] [place] [address] Care Team Providers Name Role Phone Gagandeep Hinojosa MD Primary Care Provider Reason for Visit Reason Comments HC Face To Face Visit Encounter Details Date Type Department Care Team Description 06/06/2017 Care Coord [facility] Judy Pittman RN [facility] Face To Face Office Visit Medicine [address] [facility] Visit [address] [facility] [place] [address] [phone] Social History Tobacco Use Types Packs/Day Years [...] RN - 06/06/2017 1:00 PM CST RN Glass Edger Visit Pt: Timur Krishnamurthy Referred by: Gagandeep [...] supplemental insurance and pays the remaining 20% [id number], using his spouse's HSA. I highly recommended Rustam consider signing up for supplemental coverage, but notedhe will likely need to wait for open-enrollment in the fall. Just because it isn't currently open-enrollment, doesn't mean he cannot do his research now, learn about his options, and be ready to sign-up for coverage in the fall. Therefore, I provided both medicare.gov and the [facility] Line as resources to help Rustam do [...] DM complications. Using the Synopsis tab in Skip[employer], I reviewed Rustam's A1c results since his [...] consumed. I stressed the importance of eatinga director cardiology lunch because he is not taking any insulin before the meal. Rustam states he can't start the day without a bagel, therefore I recommended he pair the bagel with a protein to help satisfy him lo nger, such as peanut butter, an egg, or cottage cheese. For lunch, Rustam could look to Amharic yogurt,a piece of fruit, or a salad [...] time. Previously, he was walking at the [facility] and states he would like to resume [...] reports he is working with a telephonic track coach on smoking cessation. Rustam is very [...] Therefore, I suggested Rustam talk with his track coach about postponing his quit date until [...] and soda consumption. Continue to work with track coach to decrease the number of cigarettes smoked per day. Follow up scheduled on 06/20/17, bring readings. Rustam to call if symptoms of hypoglycemia or readings < 70 mg/dL. Rustam verbalized understanding and agreed with plan of care and follow up. E MAKER documented in this encounter Plan of Treatment Not on filedocumented as of this encounter Visit Diagnoses Diagnosis Health group home, active care coordinati on - Primary Uncontrolled type 2 diabetes mellitus wi th hyperglycemia, with long-term current use of insulin (HRC) documented in this encounter Care Teams Hand Cutter Apprentice Relationship Specialty Start Date End Date Gagandeep Hinojosa MD PCP - General 05/17/12 14[address] [facility] [place] [address] Vane Zarate Psychiatrist Psychiatry 03/22/12 documented as of this encounter
--- OUTSIDE RECORDS SUMMARY | 2022-03-14 18:43 | XMS_ITS | Encounter Summary ---
:1970 Author Organization [facility] Address [address], [place] [address] Care Team Providers Name Role Phone Gagandeep Hinojosa MD Primary Care Provider Reason for Referral Consult/Transfer Care (Routine) - Closed Specialty Diagnoses / Procedures Referred By Contact Refer red To Contact Diagnoses Uncontrolled type 2 diabetes mellitus with complication, with long-term current use of insulin Joce Foster MD [address] [facility] [place] [address] Referral ID Status Reason Start Date Expiration Date Visits Requ ested Visits Authorized [id number] Closed 05/17/2017 08/16/2018 1 1 Scheduling Instructions If scheduling assistance is needed, namrata dorman inquire with the medical office staff upon exiting your appointment or contact the ordering clinic for recommended locations. This recommended service/s may not be co tri by your insurance coverage. To find out your specific benefit coverage, please c all the number on your insurance card. NESS MACHINES TEACHER Reason for Visit Reason Comments Diabetes Encounter Details Date Type Department Care Team Description 05/17/2017 Office Visit Joce Daniels lled type 2 diabetes mellitus with complication, with long-term current use of insulin (HRC) (Primary Dx); Romario Juárez MD Essential hypertension; [address] Hyperlip idemia LDL goal < 70; [address] ASHD (arteriosclerotic heart disease); [place] [address] [place] Bipolar I disorder (HRC); [phone] [id number] Tobacco use disorder Social History Tobacco Use [...] Comments Blood Pressure 140/86 05/17/2017 2:29 PM BUSINESS MACHINES TEACHER Pulse 106 05/17/2017 2:29 PM BUSINESS MACHINES TEACHER Temperature - - Respiratory Rate - - Oxygen Saturation - - Inhaled Oxygen Concentration - - Weight 105.2 kg (232 lb) 05/17/2017 2:28 PM BUSINESS MACHINES TEACHER Height - - Body Mass Index 33.29 04/05/2017 3:18 PM BUSINESS MACHINES TEACHER documented in this encounter Progress Notes Joce Foster MD - 05/17/2017 12:00 PM CST NAME: SHARLENE VARNER MR#: [id number] CSN: [id number] AUTHENTICATING CLINICIAN: Joce Foster MD CONFIRM #: [id number] LOC: 1202 CLINIC PROGRESS NOTE DATE OF [...] 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 MEDS: Reviewed and updated in [...] future if interested. MJW:MEDWendy C: CONFIRM #: [id number] NESS MACHINES TEACHER documented in this encounter Plan of Treatment Not on filedocumented as of this encounter Visit Diagnoses Diagnosis Uncontrolled type 2 diabetes mellitus wi th complication, with long-term current use of insulin - Primary Essential hypertension (HRC) Unspecified essential hypertension Hyperlipidemia LDL goal < 70 Other and unspecified hyperlipidemia ASHD (arteriosclerotic heart disease) (H RC) Coronary atherosclerosis of unspecified type of vessel, [place] or graft Bipolar I disorder (HRC) Bipolar I disorder, most recent episode (or current) unspecified Tobacco use disorder (HRC) Tobacco use disorder documented in this encounter Care Teams Video Tape Transferrer Relationship Specialty Start Date End Date Gagandeep Hinojosa MD PCP - General 05/17/12 [address] [place] [address] Vane Zarate Psychiatrist Psychiatry 03/22/12 documented as of this encounter
--- OUTSIDE RECORDS SUMMARY | 2022-03-14 18:43 | XMS_ITS | Encounter Summary ---
:1970 Author Organization [facility] Address [address] [address] Care Team Providers Name Role Phone Gagandeep Hinojosa MD Primary Care Provider Reason for Visit Reason Comments HC Face To Face Visit Encounter Details Date Type Department Care Team Description 09/01/2017 [facility] Deborah Rodrigues, [facility] Fa ce To Face Office Visit Medicine [facility] Visit [address] [place] [address] [facility]. [facility] [place] [address] [place] [address] [phone] Social History Tobacco Use Types Packs/Day Years Used Date Smoking Tobacco: Every Day Cigarettes 1 25 Smokeless Tobacco: Former Qu it: 10/25/2012 Comments: Smoking History Packs/day: Alcohol Use Standard Drinks/Week Comments No 0 (1 standard drink = 0.6 oz pure Alcoho lic Drinks/day: Amount:0; alcohol) Freq:Never; Sex Assigned at Date Recorded Not on file documented as of this encounter Progress Notes Deborah Rodrigues, [facility] - 09/01/2017 11:00 AM CDT Care Coordination Visit Pt: Timur Krishnamurthy Referred by: Gagandeep Hinojosa MD Reason for visit: Care Coordination Timur was seen alone. Discussion/actions: Met with Rustam for joint appointment with RN Field Ironworker, Judy Pittman. She address his physicalhealth concerns [...] state again, and wants to work at [employer]. He has a follow-up psychiatric appointment in [...] thoughts of suicide. He is working at [employer], and is trying to make sure he maintains a good balance between work and home. Rustam has also been reducing his smoking, and has a quit date of 01/21, which she is really hoping to obtain. Rustam denied any other concerns at this time and schedule a follow-up HC appointment for next week. We willdiscuss how [...] PLAN: -MH CM appointment 09/06 at 10:30. - HC appointment 09/09 at 11:00. Pt verbalized understanding and agreed with plan of care and follow up. documented in this encounter Miscellaneous Notes Assessment & Plan Note - Deborah Rodrigues LICSW - 09/01/2017 11:38 AM CDT Associated Problem(s): Health chcf, active care coordination (Resolved 07/27/2018) Field Ironworker: ERLIN Salas [phone] Care coordination focus: mental health Living situation: Lives with Important notes: mh case management starting documented in this encounter Plan of Treatment Not on filedocumented as of this encounter Visit Diagnoses Diagnosis Health chcf, active care coordinati on - Primary documented in this encounter Care Teams Laminating Machine Operator Relationship Specialty Start Date End Date Gagandeep Hinojosa MD PCP - General 05/17/12 1415 [facility] [place] [address] Vane Zarate Psychiatrist Psychiatry 03/22/12 [facility] Psychotherapist 08/04/17 documented as of this encounter
--- OUTSIDE RECORDS SUMMARY | 2022-03-14 18:43 | XMS_ITS | Encounter Summary ---
:1970 Author Organization [facility] Address [address], [place] [address] Care Team Providers Name Role Phone Gagandeep Hinojosa MD Primary Care Provider Reason for Visit Reason Comments [facility] Phone Visit HRR Encounter Details Date Type Department Care Team Description 05/10/2017 Care Coord Phone Reji Turner HC Phone Visit (HRR) Medicine Franck RN [address] [place] [address] [place] [address] [place], [place] [phone] [address] Social History Tobacco Use Types Packs/Day Years [...] need for renewed [facility] involvement. Thank you. OPERATOR documented in this encounter Plan of Treatment Not on filedocumented as of this encounter Visit Diagnoses Not on filedocumented in this encounter Care Teams Pipe Roller Relationship Specialty Start Date End Date Gagandeep Hinojosa MD PCP - General 05/17/12 [facility] [place] [address] Vane Zarate Psychiatrist Psychiatry 03/22/12 documented as of this encounter
--- OUTSIDE RECORDS SUMMARY | 2022-03-14 18:43 | XMS_ITS | Encounter Summary ---
:1970 Author Organization [facility] Address [address] [place] [address] Care Team Providers Name Role Phone Gagandeep Hinojosa MD Primary Care Provider Reason for Visit Reason Comments Medication Request Encounter Details Date Type Department Care Team Description 09/20/2017 [facility] Gag[facility]ep Hinojosa, Medication Request [facility] [facility] [place] [address] [facility] [phone] [place] [address] (Wo rk) Social History Tobacco [...] on filedocumented in this encounter Care Teams Photogravure Press Operator Relationship Specialty Start Date End Date Gagandeep Hinojosa MD PCP - General 05/17/12 [facility] [place] [address] Vane Zarate Psychiatrist Psychiatry 03/22/12 [facility] Psychotherapist 08/04/17 [facility] Carpenter Supervisor Wooden Ship 09/13/17 documented as of this encounter
--- OUTSIDE RECORDS SUMMARY | 2022-03-14 18:43 | XMS_ITS | Encounter Summary ---
:1970 Author Organization [facility] Address [address] [address] Care Team Providers Name Role Phone Gagandeep Hinojosa MD Primary Care Provider Reason for Visit Reason Comments HC Face To Face Visit Encounter Details Date Type Department Care Team Description 07/19/2017 Care Coord [facility] Judy Pittman RN [facility] Face To Face Office Visit Medicine 14[address] [facility] Visit [address] [facility] [place] [address] [phone] Social History Tobacco Use Types Packs/Day Years Used Date Smoking Tobacco: Every Day Cigarettes 1 25 Smokeless Tobacco: Former Qu it: 10/25/2012 Comments: Smoking History Packs/day: Alcohol Use Standard Drinks/Week Comments No 0 (1 standard drink = 0.6 oz pure Alcoho lic Drinks/day: Amount:0; alcohol) Freq:Never; Sex Assigned at Date Recorded Not on file documented as of this encounter Progress Notes Judy Pittamn RN - 07/19/2017 9:00 AM CDT RN Acid Plant Helper Visit Pt: Timur Krishnamurthy Referred by: [...] Mental Health Rustam continues to see his [facility] therapist every Tuesday and notes he [...] 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 [...] unspecified documented in this encounter Care Teams Dolly Driver Relationship Specialty Start Date End Date Gagandeep Hinojosa MD PCP - General 05/17/12 [facility] [facility] [place] [address] Vane Zarate Psychiatrist Psychiatry 03/22/12 documented as of this encounter
--- OUTSIDE RECORDS SUMMARY | 2022-03-14 18:43 | XMS_ITS | Encounter Summary ---
:1970 Author Organization [facility] Address [address] [place] [address] Care Team Providers Name Role Phone Gagandeep Michaud MD Primary Care Provider Reason for Visit Reason Comments Refill atorvastatin (LIPITOR) 80 MG tablet [Pharmacy Med Name: ATORVASTATIN 80 MG TABLET] Encounter Details Date Type Department Care Team Description 07/28/2017 Refill [place] [facility] Gagandeep Michaud, Rochelle l (atorvastatin Medicine MD (LIPITOR) 80 MG tablet [address] 1415 [facility] [Pharmacy Med Name: [place] [address] [place] [address] ATORVASTATIN 80 MG [phone] (Wo rk) TABLET]) Social History Tobacco Use [...] TABLET BY MOUTH EVERY DAY Interface, Out [employer] Prov Query - 07/28/2017 9:39 AM CDT [...] visit: 08/15/2017 (in Family Practice) Powered by [employer] Reference: [id number], 07/28/2017 9:39:43 AM CDT, Pool: MANUEL OSCAR ([id number]) documented in this encounter Plan of Treatment Not on filedocumented as of this encounter Visit Diagnoses Diagnosis ASHD (arteriosclerotic heart disease) ([facility]) Coronary atherosclerosis of unspecified type of vessel, stillaguamish or graft Hyperlipidemia LDL goal < 70 Other and unspecified hyperlipidemia documented in this encounter Care Teams Automation And Control Engineer Relationship Specialty Start Date End Date Gagandeep Michaud MD PCP - General 05/17/12 4650 [facility] [place] [address] Vane Zarate Psychiatrist Psychiatry 03/22/12 documented as of this encounter
--- OUTSIDE RECORDS SUMMARY | 2022-03-14 18:43 | XMS_ITS | Encounter Summary ---
:1970 Author Organization [facility] Address [address] [place] [address] Care Team Providers Name Role Phone Gagandeep Michaud MD Primary Care Provider Reason for Visit Reason Onset Date Comments Refill 07/22/2017 Insulin Syringe-Need le U-100 (INSULIN SYRINGE 31G X 5/16) 31G X 5/16 1 ML Encounter Details Date Type Department Care Team Description 07/22/2017 Refill [facility] Gagandeep Michaud, Refil l (Insulin Medicine Syringe-Needle U-[address] [facility] (INSULIN SYRINGE [address] [place] [address] [place] [address] 5/16) 31G X 5/16 1 ML) [phone] (Wo rk) Social History Tobacco Use Types [...] MICHAUD Ordering User: ABBIE MITCHELL Interface, Out [employer] Prov Query - 07/22/2017 2:39 PM CDT [...] visit: 08/15/2017 (in Family Practice) Powered by [employer], Reference: [id number], 07/22/2017 2:39:54 PM CDT, Pool: MANUEL LANDAILL ([id number]) documented in this encounter Plan of Treatment Not on filedocumented as of this encounter Visit Diagnoses Diagnosis Uncontrolled type 2 diabetes mellitus wi thout complication, with long-term current use of insulin documented in this encounter Care Teams Supervisor Coke Handling Relationship Specialty Start Date End Date Gagandeep Michaud MD PCP - General 05/17/12 9715 [facility] [place] [address] Vane Zarate Psychiatrist Psychiatry 03/22/12 documented as of this encounter
--- OUTSIDE RECORDS SUMMARY | 2022-03-14 18:43 | XMS_ITS | Encounter Summary ---
:1970 Author Organization [facility] Address [address] [place] [address] Care Team Providers Name Role Phone Gagandeep Hinojosa MD Primary Care Provider Encounter Details Date Type Department Care Team Description 04/29/2017 Lab Visit [facility] Need for prophylactic [address] [facility] [place], [place] [address] Social History Tobacco Use Types Packs/Day Years [...] 11:40 Need for Results for this AM SPORTS LAWYER prophylactic procedure are i n chemotherapy the results section. COMPLETE BLOOD Routine 04/29/2017 11:40 Need for Results f or this COUNT-W/DIFF AM SPORTS LAWYER prophylactic procedure are i n chemotherapy the results section. DIFFERENTIAL Routine 04/29/2017 11:40 Results for this AM SPORTS LAWYER procedure are i n the results section. VALPROIC ACID Routine 04/29/2017 11:40 Need for Results fo r this (DEPAKENE) AM SPORTS LAWYER prophylactic procedure are i n chemotherapy the results section. AMMONIA Routine 04/29/2017 11:40 Need for Results for this AM SPORTS LAWYER prophylactic procedure are i n chemotherapy the results section. HGB A1C Routine 04/29/2017 11:40 Need for Results for this AM SPORTS LAWYER prophylactic procedure are i n chemotherapy the results section. ALT (SGPT) Routine 04/29/2017 11:40 Need for Results for this AM SPORTS LAWYER prophylactic procedure are i n chemotherapy the results section. AST Routine 04/29/2017 11:40 Need for Results for this AM SPORTS LAWYER prophylactic procedure are i n chemotherapy the results section. SODIUM Routine 04/29/2017 11:40 Need for Results for this AM SPORTS LAWYER prophylactic procedure are i n chemotherapy the results section. POTASSIUM Routine 04/29/2017 11:40 Need for Results for this AM SPORTS LAWYER prophylactic procedure are i n chemotherapy the results section. CALL LIST QUESTIONS Routine 04/29/2017 11:33 Need for Resu lts for this AM SPORTS LAWYER prophylactic procedure are i n chemotherapy the results section. documented in this encounter Results (ABNORMAL) Differential (04/29/2017 11:40 AM SPORTS LAWYER) Analysis Performed At Patho logist Time Signature [...] / Volume Laterality 04/29/2017 11:40 04/29/2017 AM SPORTS LAWYER 11:40 AM SPORTS LAWYER Narrative PN SOFT - 04/29/2017 11:44 AM SPORTS LAWYER Performed at [facility], [address] [place], [place] [address] CLIA number [id number] .Results faxed to [phone], 04/30/2017,07:05, by GIOVANY.Results faxed to ?? Dr. Vane Zarate ?? [phone], 04/29/2017,11:46, by [facility] Vane Zarate MD LAB_1 Performing Organization Address City/State/ZIP Code Phon e Number PN SOFT [address] [place] [address] [place] (04/29/2017 11:40 AM SPORTS LAWYER) athologist Signature [place], Blood 30 0 - 44 PN SOFT umol/L Specimen Anatomical Collection Method Collection Time Receive d Time (Source) Location / / Volume Laterality 04/29/2017 11:40 04/29/2017 2:56 AM SPORTS LAWYER PM SPORTS LAWYER Narrative PN SOFT - 04/29/2017 4:09 PM SPORTS LAWYER Performed at [facility] [address] [id number] CLIA number [id number] .Results faxed to [phone], 04/30/2017,07:05, by GIOVANY.Results faxed to ?? Dr. Vane Zarate ?? [phone], 04/29/2017,11:46, by [facility] Joey Zarate MD LAB_1 Performing Organization Address [facility] Phon e Number PN SOFT [address] [place] [address] [phone] Potassium (04/29/2017 11:40 AM SPORTS LAWYER) athologist Signature Potassium 5.0 3.5 - 5.2 PN SOFT mmol/L Specimen Anatomical Collection Method Collection Time Receive d Time (Source) Location / / Volume Laterality 04/29/2017 11:40 04/29/2017 2:30 AM SPORTS LAWYER PM SPORTS LAWYER Narrative PN SOFT - 04/29/2017 3:23 PM SPORTS LAWYER Performed at [facility], [address] [place] [address] CLIA number [id number] .Results faxed to [phone], 04/30/2017,07:05, by GIOVANY.Results faxed to ?? Dr. Vane Zarate ?? [phone], 04/29/2017,11:46, by [employer] Joey Zarate MD LAB_1 Performing Organization Address [facility] Phon e Number PN SOFT [address] [place] [address] (ABNORMAL) Sodium (04/29/2017 11:40 AM SPORTS LAWYER) athologist Signature Sodium 135 (L) 136 - 145 PN SOFT mmol/L Specimen Anatomical Collection Method Collection Time Receive d Time (Source) Location / / Volume Laterality 04/29/2017 11:40 04/29/2017 2:30 AM SPORTS LAWYER PM SPORTS LAWYER Narrative PN SOFT - 04/29/2017 3:23 PM SPORTS LAWYER Performed at [facility], [address] [place] [address] CLIA number [id number] .Results faxed to [phone], 04/30/2017,07:05, by GIOVANY.Results faxed to ?? Dr. Vane Zarate ?? [phone], 04/29/2017,11:46, by [facility] Joey Zarate MD LAB_1 Performing Organization Address [facility] Phon e Number PN SOFT [address] [place] [address] Valproic Acid (Depakene) (04/29/2017 11:40 AM SPORTS LAWYER) Analysis Performed At [facility] Time [facility] Date Last Dose apr 29 2017 PN SOFT Valproic Acid Time Last Dose 8:0 PN SOFT Valproic Acid Valproic 51 50 - 100 PN SOFT Acid/Depakene ug/mL (Valp) Specimen Anatomical Collection Method Collection Time Receive d Time (Source) Location / / Volume Laterality 04/29/2017 11:40 04/29/2017 3:01 AM SPORTS LAWYER PM SPORTS LAWYER Narrative PN SOFT - 04/29/2017 3:24 PM SPORTS LAWYER Performed at [facility], [address] [place] [address] CLIA number [id number] .Results faxed to [phone], 04/30/2017,07:05, by GIOVANY.Results faxed to ?? Dr. Vane Zarate ?? [phone], 04/29/2017,11:46, by [facility] Joey Zarate MD LAB_1 Performing Organization Address [facility] Phon e Number PN SOFT [address] [place] [address] (ABNORMAL) Creatinine / GFR (04/29/2017 11:40 AM SPORTS LAWYER) Analysis Performed At Patho logist Time Signature [...] Volume Laterality 04/29/2017 11:40 04/29/2017 2:30 AM SPORTS LAWYER PM SPORTS LAWYER Narrative PN SOFT - 04/29/2017 3:23 PM SPORTS LAWYER Performed at [facility], [address] [id number] CLIA number [id number] .Results faxed to [phone], 04/30/2017,07:05, by GIOVANY.Results faxed to ?? Dr. Vane Zarate ?? [phone], 04/29/2017,11:46, by [facility] Joey Zarate MD LAB_1 Performing Organization Address City/State/ZIP Code Phon e Number PN SOFT [address] [place] [address] (ABNORMAL) Hgb A1c (04/29/2017 11:40 AM SPORTS LAWYER) P athologist Signature HGB A1C 9.7 (H) 4.0 - 5.6 % PN SOFT Specimen Anatomical Collection Method Collection Time Receive d Time (Source) Location / / Volume Laterality 04/29/2017 11:40 04/29/2017 3:01 AM SPORTS LAWYER PM SPORTS LAWYER Narrative PN SOFT - 04/29/2017 10:26 PM SPORTS LAWYER Performed at [facility], [facility] [place] [address] CLIA number [id number] .Results faxed to [phone], 04/30/2017,07:05, by GIOVANY.Results faxed to ?? Dr. Vane Zarate ?? [phone], 04/29/2017,11:46, by [facility] Joey Zarate MD LAB_1 Performing Organization Address [facility] Phon e Number PN SOFT [address] [place] [address] Alanine Aminotransferase - ALT (SGPT) (04/29/2017 11:40 AM SPORTS LAWYER) [facility] gist Method Time Signature Alanine 17 9 - 55 PN SOFT Aminotransferase U/L Specimen Anatomical Collection Method Collection Time Receive d Time (Source) Location / / Volume Laterality 04/29/2017 11:40 04/29/2017 2:30 AM SPORTS LAWYER PM SPORTS LAWYER Narrative PN SOFT - 04/29/2017 3:23 PM SPORTS LAWYER Performed at [facility], [address] [place] [address] CLIA number [id number] .Results faxed to [phone], 04/30/2017,07:05, by GIOVANY.Results faxed to ?? Dr. Vane Zarate ?? [phone], 04/29/2017,11:46, by [facility] Joey Zarate MD LAB_1 Performing Organization Address [facility] Phon e Number PN SOFT [address] [place] [address] Aspartate Aminotransferase - AST (04/29/2017 11:40 AM SPORTS LAWYER) [facility] Method Time Signature Aspartate 21 10 - 40 PN SOFT Aminotransferase U/L Specimen Anatomical Collection Method Collection Time Receive d Time (Source) Location / / Volume Laterality 04/29/2017 11:40 04/29/2017 2:30 AM SPORTS LAWYER PM SPORTS LAWYER Narrative PN SOFT - 04/29/2017 3:23 PM SPORTS LAWYER Performed at [facility], [facility] [address] [place] [address] CLIA number [id number] .Results faxed to [phone], 04/30/2017,07:05, by GIOVANY.Results faxed to ?? Dr. Vane Zarate ?? [phone], 04/29/2017,11:46, by [facility] Joey Zarate MD LAB_1 Performing Organization Address City/[facility] Phon e Number PN SOFT [address] [place] [address] CBC - Complete Blood Count-W/Diff (04/29/2017 11:40 AM SPORTS LAWYER) athologist Signature White Blood Cell 8.8 3.8 [...] / Volume Laterality 04/29/2017 11:40 04/29/2017 AM SPORTS LAWYER 11:40 AM SPORTS LAWYER Narrative PN SOFT - 04/29/2017 11:44 AM SPORTS LAWYER Performed at [facility], [address] [place] [address] CLIA number [id number] .Results faxed to [phone], 04/30/2017,07:05, by GIOVANY.Results faxed to ?? Dr. Vane Zarate ?? [phone], 04/29/2017,11:46, by [facility] Joey Zarate MD LAB_1 Performing Organization Address [facility] Phon e Number PN SOFT [address] [place] [address] Call List Questions (04/29/2017 11:33 AM SPORTS LAWYER) athologist Signature Call Back Done PN SOFT Documented Specimen (Source) Anatomical Collection Method Collection Time Re ceived Time Location / / Volume Laterality 04/29/2017 11:33 AM SPORTS LAWYER Narrative PN SOFT - 04/29/2017 11:33 AM SPORTS [place]YER [place] [address] CLIA number [id number] Joey Zarate MD LAB_1 Performing Organization Address City/State/ZIP Code Phon e Number PN SOFT [address] [place] [address] [phone] documented in this encounter Visit Diagnoses Diagnosis Need for prophylactic chemotherapy Need for other prophylactic chemotherapy documented in this encounter Care Teams Drill Grinder Relationship Specialty Start Date End Date Gagandeep Hinojosa MD PCP - General 05/17/12 [facility]15 [facility] [place] [id number] Vane Zarate Psychiatrsamantha Psychiatry 03/22/12 documented as of this encounter
--- OUTSIDE RECORDS SUMMARY | 2022-03-14 18:43 | XMS_ITS | Encounter Summary ---
:1970 Author Organization [email or web address] Address [address] [place] [address] Care Team Providers Name Role Phone Gagandeep Hinojosa MD Primary Care Provider Reason for Visit Reason Comments SKIN,DRY on hands Encounter Details Date Type Department Care Team Description 06/03/2017 Office Visit [facility] Gagandeep Hinojosa Dermatit is (Primary Medicine FMD Dx) [address] [place] [address] Ave [phone] [place], [place] [address] Social History Tobacco Use [...] Comments Blood Pressure 122/84 06/03/2017 9:56 AM INDUSTRIAL MAINTENANCE REPAIRER HELPER Pulse - - Temperature - - Respiratory Rate - - Oxygen Saturation - - Inhaled Oxygen Concentration - - Weight 101.2 kg (223 lb) 06/03/2017 9:56 AM INDUSTRIAL MAINTENANCE REPAIRER HELPER Height - - Body Mass Index 32 04/05/2017 3:18 PM INDUSTRIAL MAINTENANCE REPAIRER HELPER documented in this encounter Progress Notes Gagandeep [...] Diagnosis Date Noted ??? Tobacco abuse ([facility]) 02/24/2016 ??? Tinea versicolor 07/18/2015 ??? Tobacco use disorder ([facility]) 10/26/2012 ??? Anemia 05/02/2012 Overview Note: Anemia, unspecified ??? Health detention, active care coordination 03/22/2012 Overview Note: Database Support: JOSETTE Yip [phone] Care coordination focus: T2DM, financial resources Living situation: lives with spouse Important notes: SSDI, significant insulin resistance, uses Relion insulin, commonly reaches Medicare Coverage Gap See care plan under Chart Review > [facility] [place] [facility] CARE PLAN REPORT ??? Microalbuminuria 02/04/2012 ??? DE, old ([facility]) 09/16/2011 ??? History of PTCA 09/16/2011 Overview Note: History of PTCA 04/2011 BMS RCA ??? Obesity, Class I, BMI 30-34.9 ([facility]) 09/16/2011 Overview Note: Body mass index is 31.16 kg/(m^2). ??? Hyperlipidemia with target LDL less than 70 ([facility]) 06/08/2011 Overview Note: Hyperlipidemia LDL goal < 70 ??? ASHD (arteriosclerotic heart disease) ([facility]) 05/04/2011 ??? Erectile dysfunction 01/22/2011 Overview Note: side effect Risperdal ??? Type 2 diabetes mellitus, uncontrolled ([facility]) 12/11/2010 Overview Note: Type II or unspecified type diabetes mellitus without mention of complication, uncontrolled ([facility]) ??? Dermatophytosis of body 09/04/2010 Class: Historical Overview Note: Tinea Corporis ??? Coronary atherosclerosis ([facility]) 12/22/2009 Overview Note: LW Modifier: mod RCA, negative nuclear stress test ; CAD ??? Nonspecific abnormal results of liver function study 12/22/2009 Overview Note: Liver Function Tests Abnormal ??? Bipolar I disorder ([facility]) 09/15/2005 Overview Note: LW Onset: ; [...] ofVaseline or Eucerin. Follow-up: If not improved STRIAL MAINTENANCE REPAIRER HELPER documented in this encounter Plan of Treatment Not on filedocumented as of this encounter Visit Diagnoses Diagnosis Dermatitis - Primary Contact dermatitis and other eczema, due to unspecified cause documented in this encounter Care Teams Alum Operator Relationship Specialty Start Date End Date Gagandeep Hinojosa MD PCP - General 05/17/[address] [place], [place] [address] [address] Vane Zarate Psychiatrist Psychiatry 03/22/12 documented as of this encounter
--- OUTSIDE RECORDS SUMMARY | 2022-03-14 18:43 | XMS_ITS | Encounter Summary ---
:1970 Author Organization [facility] Address [address] [place] [address] Care Team Providers Name Role Phone Gagandeep Michaud MD Primary Care Provider Reason for Visit Reason Onset Date Comments Refill 09/21/2017 blood glucose (ONE T OUCH ULTRA BLUE) test strip Encounter Details Date Type Department Care Team Description 09/21/2017 Refill [facility] Gagandeep Michaud, Rochelle l (blood glucose Medicine (ONE TOUCH ULTRA BLUE) [address] test strip) [place] [address] [place], [place] [address] (Wo rk) Social History Tobacco Use Types [...] requested refills for testing strips to [facility] pharmacy. Interface, Out Surescripts Prov Query - 09/21/2017 2:39 PM CDT blood glucose (ONE TOUCH ULTRA BLUE) test strip Medication started: 06/09/2016 Last ordered by GAGANDEEP MICHAUD: 09/20/2017 (1 days ago) QTY: 100, Refills: [...] MICHAUD) Next scheduled visit: None Powered by [employer], Reference: [id number], 09/21/2017 2:39:52 PM CDT, Pool: MANUEL MOORE ([id number]) Evelin [place] - 09/21/2017 2:39 PM CDT DIAGNOSIS CODE REQUEST: Request received for ICD-10 code to be listed on rx. Please advise, thank you. documented in this encounter Plan of Treatment Not on filedocumented as of this encounter Visit Diagnoses Diagnosis Uncontrolled type 2 diabetes mellitus wi th microalbuminuria, with long-term current use of insulin - Primary documented in this encounter Care Teams Machine Rough Rounder Relationship Specialty Start Date End Date Gagandeep Michaud MD PCP - General 05/17/12 1415 [facility] [place] [address] Vane Zarate Psychiatrsamantha Psychiatry 03/22/12 [facility] Psychotherapist 08/04/17 [facility] Computer Information Systems Instructor 09/13/17 documented as of this encounter
--- OUTSIDE RECORDS SUMMARY | 2022-03-14 18:43 | XMS_ITS | Encounter Summary ---
:1970 Author Organization [facility] Address [address] [place] [address] Care Team Providers Name Role Phone Gagandeep Hinojosa MD Primary Care Provider Encounter Details Date Type Department Care Team Description 08/15/2017 Lab Visit [facility] Hyperlipidemia, unspecified hyperlipidemia type; [address] Uncontrolled type 2 diabetes mellitus with diabetic polyneuropathy, with long- term current use of insulin (HRC); [place] [address] Uncontrolled type 2 diabetes mellitus without complication, without long-term current use of insulin (HRC) [phone] Social History Tobacco Use Types Packs/Day Years [...] (ABNORMAL) Microalb/Creat Ratio (08/15/2017 8:50 AM CDT) [facility] gist Method Time Signature Microalbumin 150.2 mg/L PN SOFT Urine U Creat Random 113 mg/dL PN SOFT Microalbumin/Crea 132.9 (H) 0.0 - PN SOFT tinine Ratio 30.0 Specimen Anatomical Collection Method Collection Time Receive d Time (Source) Location / / Volume Laterality Urine specimen 08/15/2017 8:50 AM 018 (specimen) CDT 11:33 AM CDT Narrative PN SOFT - 08/15/2017 12:05 PM CDT Performed at [facility], [address] [place] [address] CLIA number [id number] Gagandeep Hinojosa MD LAB_1 Performing Organization Address [facility] Phon e Number PN SOFT [address] [place] [address] (ABNORMAL) POCT Glycosylated Hemoglobin (HB A1C) (08/15/2017 8:43 AM CDT) [facility] Method Time Signature Glycosolated HGB 7.7 [...] - 08/15/2017 8:55 AM CDT Performed at [facility], [address] [place] [address] CLIA number [id number] Gagandeep Hinojosa MD LAB_1 Performing Organization Address City/State/ZIP Code Phon e Number PN SOFT [address] [place] [address] (ABNORMAL) Lipid Panel and Direct LDL(If Needed) (08/15/2017 8:43 AM CDT) [facility] Method Time Signature Cholesterol 102 0 [...] - 08/15/2017 3:34 PM CDT Performed at [facility], [address] [place] [address] CLIA number [id number] Gagandeep Hinojosa MD LAB_1 Performing Organization Address [facility] Phon e Number PN SOFT [address] [place] [address] Extra Serum Separator Tube (yellow) (08/15/2017 8:35 AM CDT) athologist Signature Extra SST Top Drawn PN SOFT Drawn Specimen (Source) Anatomical Location Collection Method / Collectio n Time Received Time / Laterality Volume Narrative PN SOFT - 08/15/2017 8:35 AM CDT Performed at [facility], [address] [place] [address] CLIA number [id number] Gagandeep Hinojosa MD LAB_1 Performing Organization Address City/[facility]/ZIP [facility] Phon e Number PN SOFT [address] [place] [address] [phone] documented in this encounter Visit Diagnoses Diagnosis Hyperlipidemia, unspecified hyperlipidem ia type (HRC) Uncontrolled type 2 diabetes mellitus wi th diabetic polyneuropathy, with long-term current use of insulin Uncontrolled type 2 diabetes mellitus wi thout complication, without long-term current use of insulin documented in this encounter Care Teams Sole Stapler Welt Relationship Specialty Start Date End Date Gagandeep Hinojosa MD PCP - General 05/17/12 [address] [facility] [place] [address] Vane Zarate Psychiatrist Psychiatry 03/22/12 [facility] Psychotherapist 08/04/17 documented as of this encounter
--- OUTSIDE RECORDS SUMMARY | 2022-03-14 18:43 | XMS_ITS | Encounter Summary ---
:1970 Author Organization [facility] Address [address] [place] [address] Care Team Providers Name Role Phone Gagandeep Hinojosa MD Primary Care Provider Encounter Details Date Type Department Care Team Description 04/29/2017 Notes/Orders [facility] Vane Zarate, Need for prophylactic [address] Dilip Bonds MD chemotherapy ([place] [address]) [phone] [address] [place] [address] Social History Tobacco Use Types [...] this encounter Results Ammonia (04/29/2017 11:40 AM MASTER CONTROL OPERATOR) athologist Signature Ammonia, Blood 30 0 - 44 PN SOFT umol/L Specimen Anatomical Collection Method Collection Time Receive d Time (Source) Location / / Volume Laterality 04/29/2017 11:40 04/29/2017 2:56 AM MASTER CONTROL OPERATOR PM MASTER CONTROL OPERATOR Narrative PN SOFT - 04/29/2017 4:09 PM MASTER CONTROL OPERATOR Performed at [facility], [facility] [place] [address] CLIA number [id number] .Results faxed to [phone], 04/30/2017,07:05, by GIOVANY.Results faxed to ?? Dr. Vane Zarate ?? [phone], 04/29/2017,11:46, by [facility] Joey Zarate MD LAB_1 Performing Organization Address [facility] Phon e Number PN SOFT [address] [place] [address] Potassium (04/29/2017 11:40 AM MASTER CONTROL OPERATOR) P athologist Signature Potassium 5.0 3.5 - 5.2 PN SOFT mmol/L Specimen Anatomical Collection Method Collection Time Receive d Time (Source) Location / / Volume Laterality 04/29/2017 11:40 04/29/2017 2:30 AM MASTER CONTROL OPERATOR PM MASTER CONTROL OPERATOR Narrative PN SOFT - 04/29/2017 3:23 PM MASTER CONTROL OPERATOR [place] [address] CLIA number [id number] .Results faxed to [phone], 04/30/2017,07:05, by GIOVANY.Results faxed to ?? Dr. Vane Zarate ?? [phone], 04/29/2017,11:46, by [facility] Joey Zarate MD LAB_1 Performing Organization Address [facility] Phon e Number PN SOFT [address] [place] [address] (ABNORMAL) Sodium (04/29/2017 11:40 AM MASTER CONTROL OPERATOR) P athologist Signature Sodium 135 (L) 136 - 145 PN SOFT mmol/L Specimen Anatomical Collection Method Collection Time Receive d Time (Source) Location / / Volume Laterality 04/29/2017 11:40 04/29/2017 2:30 AM MASTER CONTROL OPERATOR PM MASTER CONTROL OPERATOR Narrative PN SOFT - 04/29/2017 3:23 PM MASTER CONTROL OPERATOR Performed at [facility], [facility] [address] [place] [address] CLIA number [id number] .Results faxed to [phone], 04/30/2017,07:05, by GIOVANY.Results faxed to ?? Dr. Vane Zarate ?? [phone], 04/29/2017,11:46, by [facility] Joey Zarate MD LAB_1 Performing Organization Address [facility] Phon e Number PN SOFT [address] [place] [address] Valproic Acid (Depakene) (04/29/2017 11:40 AM MASTER CONTROL OPERATOR) Analysis Performed At [facility] Time Signature Date Last Dose apr 29 2017 PN SOFT Valproic Acid Time Last Dose 8:0 PN SOFT Valproic Acid Valproic 51 50 - 100 PN SOFT Acid/Depakene ug/mL (Valp) Specimen Anatomical Collection Method Collection Time Receive d Time (Source) Location / / Volume Laterality 04/29/2017 11:40 04/29/2017 3:01 AM MASTER CONTROL OPERATOR PM MASTER CONTROL OPERATOR Narrative PN SOFT - 04/29/2017 3:24 PM MASTER CONTROL OPERATOR Performed at [address] [address] CLIA number [id number] .Results faxed to [phone], 04/30/2017,07:05, by GIOVANY.Results faxed to ?? Dr. Vane Zarate ?? [phone], 04/29/2017,11:46, by [facility] Joey Zarate MD LAB_1 Performing Organization Address [facility] Phon e Number PN SOFT [address] [place] [address] [phone] (ABNORMAL) Creatinine / GFR (04/29/2017 11:40 AM MASTER CONTROL OPERATOR) Analysis Performed At [facility] Time Signature Creatinine 0.70 (L) 0.73 [...] Volume Laterality 04/29/2017 11:40 04/29/2017 2:30 AM MASTER CONTROL OPERATOR PM MASTER CONTROL OPERATOR Narrative PN SOFT - 04/29/2017 3:23 PM MASTER CONTROL OPERATOR Performed at [facility], [address] [place] [id number] CLIA number [id number] .Results faxed to [phone], 04/30/2017,07:05, by GIOVANY.Results faxed to ?? Dr. Vane Zarate ?? [phone], 04/29/2017,11:46, by [facility] Joey Zarate MD LAB_1 Performing Organization Address [facility] Code Phon e Number PN SOFT [address] [place] [address] (ABNORMAL) Hgb A1c (04/29/2017 11:40 AM MASTER CONTROL OPERATOR) athologist Signature HGB A1C 9.7 (H) 4.0 - 5.6 % PN SOFT Specimen Anatomical Collection Method Collection Time Receive d Time (Source) Location / / Volume Laterality 04/29/2017 11:40 04/29/2017 3:01 AM MASTER CONTROL OPERATOR PM MASTER CONTROL OPERATOR Narrative PN SOFT - 04/29/2017 10:26 PM MASTER CONTROL OPERATOR Performed at [place] [id number] CLIA number [id number] .Results faxed to [phone], 04/30/2017,07:05, by GIOVANY.Results faxed to ?? Dr. Vane Zarate ?? [phone], 04/29/2017,11:46, by [facility] Joey Zarate MD LAB_1 Performing Organization Address [facility] Phon e Number PN SOFT [address] [place] [address] Alanine Aminotransferase - ALT (SGPT) (04/29/2017 11:40 AM MASTER CONTROL OPERATOR) Patholo gist Method Time Signature Alanine 17 9 - 55 PN SOFT Aminotransferase U/L Specimen Anatomical Collection Method Collection Time Receive d Time (Source) Location / / Volume Laterality 04/29/2017 11:40 04/29/2017 2:30 AM MASTER CONTROL OPERATOR PM MASTER CONTROL OPERATOR Narrative PN SOFT - 04/29/2017 3:23 PM MASTER CONTROL OPERATOR Performed at [facility], [address] [place] [address] CLIA number [id number] .Results faxed to [phone], 04/30/2017,07:05, by GIOVANY.Results faxed to ?? Dr. Vane Zarate ?? [phone], 04/29/2017,11:46, by [facility] Joey Zarate MD LAB_1 Performing Organization Address [facility] Phon e Number PN SOFT [address] [facility] [place] [address] Aspartate Aminotransferase - AST (04/29/2017 11:40 AM MASTER CONTROL OPERATOR) Patholo gist Method Time Signature Aspartate 21 10 - 40 PN SOFT Aminotransferase U/L Specimen Anatomical Collection Method Collection Time Receive d Time (Source) Location / / Volume Laterality 04/29/2017 11:40 04/29/2017 2:30 AM MASTER CONTROL OPERATOR PM MASTER CONTROL OPERATOR Narrative PN SOFT - 04/29/2017 3:23 PM MASTER CONTROL OPERATOR Performed at [facility], [address] [place], [place] [address] CLIA number [id number] .Results faxed to [phone], 04/30/2017,07:05, by GIOVANY.Results faxed to ?? Dr. Vane Zarate ?? [phone], 04/29/2017,11:46, by [facility] Joey Zarate MD LAB_1 Performing Organization Address [facility] Phon e Number PN SOFT [address] [place] [address] CBC - Complete Blood Count-W/Diff (04/29/2017 11:40 AM MASTER CONTROL OPERATOR) P athologist Signature White Blood Cell [...] / Volume Laterality 04/29/2017 11:40 04/29/2017 AM MASTER CONTROL OPERATOR 11:40 AM MASTER CONTROL OPERATOR Narrative PN SOFT - 04/29/2017 11:44 AM MASTER CONTROL OPERATOR Performed at [facility], [address] [place] [address] CLIA number [id number] .Results faxed to [phone], 04/30/2017,07:05, by GIOVANY.Results faxed to ?? Dr. Vane Zarate ?? [phone], 04/29/2017,11:46, by [facility] Joey Zarate MD LAB_1 Performing Organization Address City/[facility] Phon e Number PN SOFT [address] [place] [address] Call List Questions (04/29/2017 11:33 AM MASTER CONTROL OPERATOR) athologist Signature Call Back Done PN SOFT Documented Specimen (Source) Anatomical Collection Method Collection Time Re ceived Time Location / / Volume Laterality 04/29/2017 11:33 AM MASTER CONTROL OPERATOR Narrative PN SOFT - 04/29/2017 11:33 AM MASTER CONTROL OPERATOR Performed at [facility], [address] [place] [address] CLIA number [id number] Joey Zarate MD LAB_1 Performing Organization Address City/[facility] Phon e Number PN SOFT [address] [place] [address] documented in this encounter Visit Diagnoses Diagnosis Need for prophylactic chemotherapy - Sandra dorsey Need for other prophylactic chemotherapy Need for prophylactic chemotherapy Need for other prophylactic chemotherapy documented in this encounter Care Teams Slide Machine Tender Relationship Specialty Start Date End Date Gagandeep Hinojosa MD PCP - General 05/17/[address] [place] [address] Vane Zarate Psychiatrist Psychiatry 03/22/12 documented as of this encounter
--- OUTSIDE RECORDS SUMMARY | 2022-03-14 18:43 | XMS_ITS | Encounter Summary ---
:1970 Author Organization [facility] Address [address], [place] [address] Care Team Providers Name Role Phone Gagandeep Hinojosa MD Primary Care Provider Reason for Referral Consult/Transfer Care (Routine) - Closed Specialty Diagnoses / Procedures Referred By Contact Refer red To Contact Diagnoses Diabetic ulcer of left midfoot associated with type 2 diabetes mellitus, limited to breakdown of skin (HRC) Gagandeep Hinojosa MD [address] [facility] [place] [address] Referral ID Status Reason Start Date Expiration Date Visits Requ ested Visits Authorized [id number] Closed 08/15/2017 11/14/2018 1 1 Scheduling Instructions Your provider has recommended an appoint ment with [facility]. You may call [phone] to sc hedule your appointment. If you [...] Dx); Romario Rubio MD Essential hypertension; [address] [facility] 14[address] [facility] Bipolar I disorder (HRC); [address] Ave Diabetic ulcer of left midfoot associate d with type 2 diabetes mellitus, limited to breakdown of skin ([facility]); [place] [address] [place] Type 2 diabetes mellitus wit h diabetic polyneuropathy, without long-term current use of insulin ([facility]); [phone] [id number] Type II diabetes mellitus with neurologi estrella manifestations ([facility]); [phone] Tobacco use dis order (Work) Social History [...] Body Mass Index 29.41 04/05/2017 3:18 PM URGENT CARE PHYSICIAN documented in this encounter Progress Notes Gagandeep [...] Hemoglobin (HB A1C) (08/15/2017 8:43 AM CDT) [facility] gist Method Time Signature Glycosolated HGB 7.7 [...] - 08/15/2017 8:55 AM CDT Performed at [facility], [address] [place] [address] CLIA number [id number] Gagandeep Hinojosa MD LAB_1 Performing Organization Address City/State/ZIP Code Phon e Number PN SOFT [address] [place] [address] [phone] documented in this encounter Visit Diagnoses Diagnosis [...] insulin documented in this encounter Care Teams Toaster Element Repairer Relationship Specialty Start Date End Date Gagandeep Hinojosa MD PCP - General 05/17/[address] [place], [place] [address], [place] [address] Vane Zarate Psychiatrist Psychiatry 03/22/12 [facility] Mental [facility] Psychotherapist 08/04/17 documented as of this encounter
--- OUTSIDE RECORDS SUMMARY | 2022-03-14 18:43 | XMS_ITS | Encounter Summary ---
:1970 Author Organization [facility] Address [address] [address] Care Team Providers Name Role Phone Gagandeep Hinojosa MD Primary Care Provider Reason for Visit Reason Comments HC Face To Face Visit Encounter Details Date Type Department Care Team Description 09/13/2017 [facility] Deborah Rodr[facility], [facility] Fa ce To Face Office Visit Medicine [facility] Visit [address] [place] 14[address] [facility]. [facility] [place] [address] [place] [address] [phone] Social History Tobacco Use Types Packs/Day Years [...] this encounter Progress Notes Deborah Rodrigues, [facility] - 09/13/2017 8:00 AM CDT Care Coordination Visit Pt: Timur Krishnamurthy Referred by: Gagandeep Hinojosa MD Reason for visit: Care Coordination Timur was seen alone. Discussion/actions: Met with uRstam for a scheduled [facility] appointment. He arrived [...] medications as prescribed. He is attending the [facility] weekly and attend individual therapy weekly, both of which he thinks are really good support for him. Rustam met with his CM, Ksenia Weiss (ph: [phone]),and he said it went well. He was [...] bills. Goal: in process ?? SHARED PLAN: -MH CM follow up as needed. -SW/RN HC appointment 09/22 at 10:00. Pt verbalized understanding and agreed with plan of care and follow up. documented in this encounter Plan of Treatment Not on filedocumented as of this encounter Visit Diagnoses Diagnosis Health long term, active care coordinati on - Primary documented in this encounter Care Teams Business Intelligence Developer Relationship Specialty Start Date End Date Gagandeep Hinojosa MD PCP - General 05/17/12 [address] [place] [address] Vane Zarate Psychiatrist Psychiatry 03/22/12 [facility] Psychotherapist 08/04/17 [facility] Rn Procedures 09/13/17 documented as of this encounter
--- OUTSIDE RECORDS SUMMARY | 2022-03-14 18:43 | XMS_ITS | Encounter Summary ---
:1970 Author Organization [facility] Address [address] [place] [address] Care Team Providers Name Role Phone Gagandeep Hinojosa MD Primary Care Provider Encounter Details Date Type Department Care Team Description 05/17/2017 Lab Visit [facility] Uncontrolled type [address] mellitus with diabetic [place], [place] [address] polyneuropathy, with [phone] long-term curre nt use of insulin (HRC) [...] 2 Results for this HEMOGLOBIN (HB A1C) BUSINESS DEVELOPMENT diabetes mellitus pro cedure are in with diabetic the results polyneuropathy, with section . long-term current use of insulin (HRC) EXTRA SERUM SEPARATOR STAT 05/17/2017 1:49 PM Results for this TUBE (YELLOW) BUSINESS DEVELOPMENT procedure are in the results section. documented in this encounter Results (ABNORMAL) POCT Glycosylated Hemoglobin (HB A1C) (05/17/2017 1:59 PM BUSINESS DEVELOPMENT) [facility] Method Time Signature Glycosolated HGB 9.1 (H) [...] Volume Laterality 05/17/2017 1:59 PM 8 1:58 BUSINESS DEVELOPMENT PM BUSINESS DEVELOPMENT Narrative PN SOFT - 05/17/2017 2:15 PM BUSINESS DEVELOPMENT Performed at [facility], [address] [place] [address] CLIA number [id number] Gagandeep Hinojosa MD LAB_1 Performing Organization Address [facility] Phon e Number PN SOFT [address] [place] [address] Extra Serum Separator Tube (yellow) (05/17/2017 1:49 PM BUSINESS DEVELOPMENT) athologist Signature Extra SST Top Drawn PN SOFT Drawn Specimen (Source) Anatomical Location Collection Method / Collectio n Time Received Time / Laterality Volume Narrative PN SOFT - 05/17/2017 1:49 PM BUSINESS DEVELOPMENT Performed at [facility], [address] [place] [address] CLIA number [id number] Gagandeep Hinojosa MD LAB_1 Performing Organization Address City/[facility] Phon e Number PN SOFT [address] [place] [address] documented in this encounter Visit Diagnoses Diagnosis Uncontrolled type 2 diabetes mellitus wi th diabetic polyneuropathy, with long-term current use of insulin documented in this encounter Care Teams Sustainability Coordinator Relationship Specialty Start Date End Date Gagandeep Hinojosa MD PCP - General 05/17/[address] [place] [address] Vane Zarate Psychiatrist Psychiatry 03/22/12 documented as of this encounter
--- OUTSIDE RECORDS SUMMARY | 2022-03-14 18:43 | XMS_ITS | Encounter Summary ---
:1970 Author Organization [facility] Address [address] [place] [address] Care Team Providers Name Role Phone Gagandeep Hinojosa MD Primary Care Provider Reason for Visit Reason Comments Disease Registry Encounter Details Date Type Department Care Team Description 05/19/2017 Notes/Orders [facility] Gagandeep Hinojosa MD 1415 [facility] . [address] [facility] [place] [address] [place] [address] [phone] (Wo rk) Social History Tobacco Use Types [...] on filedocumented in this encounter Care Teams Appliance Servicer Relationship Specialty Start Date End Date Gagandeep Hinojosa MD PCP - General 05/17/12 [address] [facility] [place] [address] Vane Zarate Psychiatrist Psychiatry 03/22/12 documented as of this encounter
--- OUTSIDE RECORDS SUMMARY | 2022-03-14 18:44 | XMS_ITS | Encounter Summary ---
:1970 Author Organization [facility] Address [address] [place] [address] Care Team Providers Name Role Phone Gagandeep Hinojosa MD Primary Care Provider Reason for Visit Reason Onset Date Comments APPOINTMENT REQUEST 08/30/2016 Encounter Details Date Type Department Care Team Description 08/30/2016 Nurse Triage [facility] Gagandeep Hinojosa, APPOI NTMENT REQUEST Medicine 1415 [facility] . [address] [place] [address] [place] [address] [phone] (Wo rk) Social History Tobacco Use Types [...] 08/30/2016 1:17 PM CDT Spoke with pt. States has appointment to see PCP on 09/07/16 [...] time. Preferred to discuss at upcoming appointment. Moccasin Sewer did update appointment reason to add L thigh numbness and pain. All questions answered. Verbalizes understanding of info. To call back if has further concerns/questions. documented in this encounter Plan of Treatment Not on filedocumented as of this encounter Visit Diagnoses Not on filedocumented in this encounter Care Teams Real Estate Internship Relationship Specialty Start Date End Date Gagandeep Hinojosa MD PCP - General 05/17/12 [address] [facility] [place] [address] Vane Zarate Psychiatrist Psychiatry 03/22/12 documented as of this encounter
--- OUTSIDE RECORDS SUMMARY | 2022-03-14 18:44 | XMS_ITS | Encounter Summary ---
:1970 Author Organization [facility] Address [address] [place] [address] Care Team Providers Name Role Phone Gagandeep Hinojosa MD Primary Care Provider Reason for Visit Reason Onset Date Comments [facility] Phone Visit 07/14/2016 Encounter Details Date Type Department Care Team Description 07/14/2016 Care Coord Phone [facility] Deborah Rodrigues, [facility] Phone Visit [facility] [address] [facility] . [address] [place] [address] [place] [address] [phone] Social History Tobacco Use Types Packs/Day Years Used Date Smoking Tobacco: Every Day Cigarettes 0 25 Smokeless Tobacco: Former Qu it: 10/25/2012 Comments: Smoking History Packs/day: Alcohol Use Standard Drinks/Week Comments No 0 (1 standard drink = 0.6 oz pure Alcoho lic Drinks/day: Amount:0; alcohol) Freq:Never; Sex Assigned at Date Recorded Not on file documented as of this encounter Progress Notes Deborah Rodrigues, [facility] - 07/14/2016 1:30 PM CDT Bomb Loader - Phone Call Contact with: Rustam Reason for call: Care Coordination Discussion/actions: Got an appointment scheduled with KAR[facility], Dr. Gladys Longoria, on 07/20 at 10:30. Called Rustam and gave him this information. He agreed to be at this appointment and said that he had transportation. He will call [facility] and check-in next week to discuss how it went. Rustam reports everything else is going fine. Denied any thoughts of suicide. Shared plan: -Therapy appointment 07/20 at 10:30. -H follow-up as needed. Pt verbalized understanding and agreed with plan of care and follow up. documented in this encounter Plan of Treatment Not on filedocumented as of this encounter Visit Diagnoses Diagnosis [facility], active care coordinati on - Primary documented in this encounter Care Teams Press Tool Maker Relationship Specialty Start Date End Date Gagandeep Hinojosa MD PCP - General 05/17/12 1415 [facility] [place] [address] Vane Zarate Psychiatrist Psychiatry 03/22/12 documented as of this encounter
--- OUTSIDE RECORDS SUMMARY | 2022-03-14 18:44 | XMS_ITS | Encounter Summary ---
:1970 Author Organization [facility] Address [address] [place] [address] Care Team Providers Name Role Phone Gagandeep Hinojosa MD Primary Care Provider Reason for Visit Reason Onset Date Comments Patient Preference Scheduling 09/07/2016 Encounter Details Date Type Department Care Team Description 09/07/2016 Telephone Verito Mackenzie Patient Preference Rehabilitative Medic nicholas Rubio MD Scheduling [address] [place] [address] [place], [place] [phone] (Wo rk) Social History Tobacco Use Types [...] on filedocumented in this encounter Care Teams Radio Mechanic Relationship Specialty Start Date End Date Gagandeep Hinojosa MD PCP - General 05/17/12 1415 [facility] [place] [address] Vane Zarate Psychiatrist Psychiatry 03/22/12 documented as of this encounter
--- OUTSIDE RECORDS SUMMARY | 2022-03-14 18:44 | XMS_ITS | Encounter Summary ---
:1970 Author Organization [facility] Address [address] [address] Care Team Providers Name Role Phone Gagandeep Hinojosa MD Primary Care Provider Reason for Visit Reason Comments HC Face To Face Visit Encounter Details Date Type Department Care Team Description 07/13/2016 Care Coord [facility] Deborah Rodrigues, [facility] Fa ce To Face Office Visit Medicine [facility] Visit [address] 14[address] [facility]. [facility] [place] [address] [place] [address] [phone] Social History Tobacco Use Types Packs/Day Years [...] Progress Notes Deborah Rodrigues, [facility] - 07/13/2016 11:00 AM CDT Care Coordination [...] is went to one therapy appointment at [facility], but felt like it was sterile and un-welcoming, so he cancelled his second appointment. Talked with Rustam about the importance of having an outlet to help him cope with how he is feeling. Rustam agreed that he needed to go back to see a therapist, but wasn't sure about going back to [facility]. I agreed to talk to Jimena French [...] Primary documented in this encounter Care Teams Dehydration Unit Operator Relationship Specialty Start Date End Date Gagandeep Hinojosa MD PCP - General 05/17/[address] [place], [place] [address] [address] Vane Zarate Psychiatrsamantha Psychiatry 03/22/12 documented as of this encounter
--- OUTSIDE RECORDS SUMMARY | 2022-03-14 18:44 | XMS_ITS | Encounter Summary ---
:1970 Author Organization [facility] Address [address] [place] [address] Care Team Providers Name Role Phone Gagandeep Hinojosa MD Primary Care Provider Encounter Details Date Type Department Care Team Description 09/07/2016 Lab Visit [facility] Uncontrolled type 2 diabetes mellitus with diabetic polyneuropathy, with long- term current use of insulin (HRC) [E11.42, Z79.4, E11.65]; [address] Hyperlipidemia LDL goal < 70 ; [place] [address] Essential hypertension [phone] Social History Tobacco Use Types Packs/Day Years [...] (ABNORMAL) Microalb/Creat Ratio (09/07/2016 10:26 AM CDT) Patholo gist Method Time Signature Microalbumin 102.5 mg/L PN SOFT Urine U Creat Random 263 mg/dL PN SOFT Microalbumin/Crea 39.0 (H) 0.0 - PN SOFT tinine Ratio 30.0 Specimen Anatomical Collection Method Collection Time Receive d Time (Source) Location / / Volume Laterality Urine specimen 09/07/2016 10:26 7 2:29 (specimen) AM CDT PM CDT Narrative PN SOFT - 09/07/2016 3:26 PM CDT Performed at [facility], [address] [place] [address] CLIA number [id number] Gagandeep Hinojosa MD LAB_1 Performing Organization Address City/State/ZIP Code Phon e Number PN SOFT [address] [place], [place] [address] [phone] (ABNORMAL) Creatinine / GFR (09/07/2016 10:25 AM [...] - 09/07/2016 3:04 PM CDT Performed at [facility], [address] [place] [address] CLIA number [id number] Gagandeep Hinojosa MD LAB_1 Performing Organization Address [facility] Phon e Number PN SOFT [address] [place] [address] (ABNORMAL) Electrolyte Panel (09/07/2016 10:25 AM CDT) [...] - 09/07/2016 3:04 PM CDT Performed at [facility], [facility] [address] [place] [address] CLIA number [id number] Gagandeep Hinojosa MD LAB_1 Performing Organization Address [facility] Phon e Number PN SOFT [address] [place] [address] (ABNORMAL) Lipid Panel and Direct LDL(If Needed) [...] - 09/07/2016 3:04 PM CDT Performed at [facility], [address] [place] [address] CLIA number [id number] Gagandeep Hinojosa MD LAB_1 Performing Organization Address [facility] Phon e Number PN SOFT [address] [place] [address] (ABNORMAL) POCT Glycosylated Hemoglobin (HB A1C) (09/07/2016 10:25 AM CDT) [facility] Method Time Signature Glycosolated HGB 8.3 [...] - 09/07/2016 10:35 AM CDT Performed at [facility], [address] [place] [address] CLIA number [id number] Gagandeep Hinojosa MD LAB_1 Performing Organization Address [facility] Phon e Number PN SOFT [address] [place] [address] Extra Serum Separator Tube (yellow) (09/07/2016 10:20 AM CDT) P athologist Signature Extra SST Top Drawn PN SOFT Drawn Specimen (Source) Anatomical Location Collection Method / Collectio n Time Received Time / Laterality Volume Narrative PN SOFT - 09/07/2016 10:20 AM CDT Performed at [address] [address] CLIA number [id number] Gagandeep Hinojosa MD LAB_1 Performing Organization Address [facility] Phon e Number PN SOFT [address] [place] [address] documented in this encounter Visit Diagnoses Diagnosis Uncontrolled type 2 diabetes mellitus wi th diabetic polyneuropathy, with long-term current use of insulin (HRC) [E11.42, Z7 9.4, E11.65] Hyperlipidemia LDL goal < 70 Other and unspecified hyperlipidemia Essential hypertension (HRC) Unspecified essential hypertension documented in this encounter Care Teams Growth Media Mixer Mushroom Relationship Specialty Start Date End Date Gagandeep Hinojosa MD PCP - General 05/17/12 [facility] [id number] Vane Zarate Psychiatrist Psychiatry 03/22/12 documented as of this encounter
--- OUTSIDE RECORDS SUMMARY | 2022-03-14 18:44 | XMS_ITS | Encounter Summary ---
:1970 Author Organization [facility] Address [address] [place] [address] Care Team Providers Name Role Phone Gagandeep Hinojosa MD Primary Care Provider Reason for Visit Reason Onset Date Comments DIABETES EDUCATION 08/06/2016 Encounter Details Date Type Department Care Team Description 08/06/2016 Telephone [facility] [address] DI ABLYNNE EDUCATION Endocrinology MBBS [address] [facility] [address] [place], [place] [address] [address] [place], [place] [phone] Social History Tobacco Use Types Packs/Day [...] on filedocumented in this encounter Care Teams Submersible Pilot Relationship Specialty Start Date End Date Gagandeep Hinojosa MD PCP - General 05/17/12 1415 [facility] [place] [address] Vane Zarate Psychiatrist Psychiatry 03/22/12 documented as of this encounter
--- OUTSIDE RECORDS SUMMARY | 2022-03-14 18:44 | XMS_ITS | Encounter Summary ---
:1970 Author Organization [facility] Address [address] [place] [address] Care Team Providers Name Role Phone Gagandeep Hinojosa MD Primary Care Provider Reason for Visit Reason Comments Diabetes Encounter Details Date Type Department Care Team Description 09/15/2016 [facility] type 2 diabetes mellitus without complication, without long-term current use of insulin (HRC) (Primary Dx); Endocrinology M, REINA Bipolar I disorder (HRC) [address] [address] [facility] [phone] [place], [place] [id number] Social History Tobacco Use Types Packs/Day Years [...] Alcantar, REINA - 09/15/2016 2:30 PM CDT [facility] Department of Endocrinology, Diabetes and Metabolism Clinic [...] takes lisinopril 10 mg daily BP today [id number]. He takes atorvastatin 80 mg daily, he [...] lisinopril. #3 Dyslipidemia: continue atorvastatin. REINA Barrera Cafeteria Helper documented in this encounter Plan of Treatment [...] unspecified documented in this encounter Care Teams Healthcare Economics Consultant Relationship Specialty Start Date End Date Gagandeep Hinojosa MD PCP - General 05/17/12 [address] [place] [address] Vane Zarate Psychiatrist Psychiatry 03/22/12 documented as of this encounter
--- OUTSIDE RECORDS SUMMARY | 2022-03-14 18:44 | XMS_ITS | Encounter Summary ---
:1970 Author Organization [facility] Address [address], [place] [address] Care Team Providers Name Role Phone Gagandeep Michaud MD Primary Care Provider Encounter Details Date Type Department Care Team Description 12/03/2016 [facility]ill Order [facility] Gagandeep Michaud MD 1415 [facility] . 1415 [facility] [place] [address] [place] [address] [phone] (Wo rk) Social History Tobacco Use Types [...] - NEXT LAB APPOINTMENT: None Powered by [employer], Reference: [id number], 12/03/2016 2:46:31 PM CDT, Pool: MANUEL MOORE ([id number]) documented in this encounter Plan of Treatment Not on filedocumented as of this encounter Visit Diagnoses Diagnosis Encounter for long-term (current) use of medications - Primary Encounter for long-term (current) use of other medications documented in this encounter Care Teams Heeler Relationship Specialty Start Date End Date Gagandeep Michaud MD PCP - General 05/17/12 [address] [place] [address] Vane Zarate Psychiatrist Psychiatry 03/22/12 documented as of this encounter
--- OUTSIDE RECORDS SUMMARY | 2022-03-14 18:44 | XMS_ITS | Encounter Summary ---
:1970 Author Organization [facility] Address [address] [place] [address] Care Team Providers Name Role Phone Gagandeep Hinojosa MD Primary Care Provider Reason for Referral (Routine) - Closed Specialty Diagnoses / Procedures Referred By Contact Refer red To Contact Diagnoses Dyslipidemia (HRC) Que Lal MD Procedures Outreach Nuclear Study [address] [facility] [address] [place] [address] Referral ID Status Reason Start Date Expiration Date Visits Requ ested Visits Authorized [id number] Closed 01/04/2017 04/05/2018 1 1 Encounter Details Date Type Department Care Team Description 12/31/2016 Hospital Encounter Heart & Vascular Dysli pidemia (Primary Center Nuclear Dx) Cardiology [address] [facility]. [place], [place] [address] Social History Tobacco Use Types Packs/Day Years [...] MG daily. tabletIndications: ASHD (arteriosclerotic heart disease) ([facility]), Hyperlipidemia with target LDL less than 70 ([facility]) Charcoal 260 Take 1 Tab by [...] SOPNIndications: Controlled type 2 diabetes with neuropathy ([facility]) insulin pen needle (BD Inject subcutaneously [...] unspecified vessel or lesion type, unspecified whether [place] or transplanted heart (HRC), Essential hypertension (HRC) LORazepam (ATIVAN) 1 MG Take 1 mg [...] NM CARDIAC MPI STRESS TEST ( (Order [id number]) STRESS TEST PHARMACOLOGICAL ( (Order [id number]) Original Order Diagnosis: Dyslipidemia [E78.5 (ICD-10-CM)] Coronary artery disease, angina presence unspecified, unspecified vessel or lesion type, unspecifiedwhether [place] or transplanted heart [I25.10 (ICD-10-CM)] Chest pain, rule out acute myocardial infarction [R07.9 (ICD-10-CM)] Dyslipidemia [E78.5 (ICD-10-CM)] Coronary artery disease, angina presence unspecified, unspecified vessel or lesion type, unspecifiedwhether [place] or transplanted heart [I25.10 (ICD-10-CM)] Chest pain, rule out acute myocardial infarction [R07.9 (ICD-10-CM)] Reading Provider(s) Alexei Pratt MBBS PACs images are not viewable in [employer]. See text report below. 2017 12:32 [...] Patient Information Patient Name Sex Timur Krishnamurthy ([id number]) Male 1970 documented in this encounter Plan [...] NM CARDIAC MPI STRESS TEST (Acce ssion [id number]) (Order [id number]) STRESS TEST PHARMACOLOGICAL ( (Order [id number]) Original Order Diagnosis: Dyslipidemia [E78.5 (ICD-10-CM)] Coronary artery disease, angina presence unspecified, unspecified vessel or lesion type, unspecified wheth er [place] or transplanted heart [I25.10 (ICD-10-CM)] Chest pain, rule out acute myocardial in farction [R07.9 (ICD-10-CM)] Dyslipidemia [E78.5 (ICD-10-CM)] Coronary artery disease, angina presence unspecified, unspecified vessel or lesion type, unspecified wheth er [place] or transplanted heart [I25.10 (ICD-10-CM)] Chest pain, rule out acute myocardial in farction [R07.9 (ICD-10-CM)] ?? Reading Provider(s) ?? Alexei Pratt MBBS PACs images are not viewable in [employer]. See text report below. ?? 2017 12:32 PM - Alexei Pratt MBBS Narrative & Impression ?? STRESS NUCLEAR PERFUSION SCAN - 7 INDICATIONS: Coronary artery disease wit h history of inferior wall myocardial infarction. Dyslipidemia . Rest stress single isotope SPECT imaging was performed with InstyBookiscan walk protocol. BASELINE ELECTROCARDIOGRAM: Normal sinus rhythm. [...] to evaluate left ventricular ejection fract ion. Arik Arvizu/brandi Lab and Collection ?? STRESS TEST PHARMACOLOGICAL on 12/31/2016 Result History ?? STRESS TEST PHARMACOLOGICAL on 7 Hard Copy Result Report ?? Open Hard Copy Results Report Patient Release Status: ?? This result is not viewable by the hilaria ent. Patient Information ?? Patient Name Sex Timur Schulz ([id number]) Male 1970 Procedure Note Deborah Mtahews - 12/31/2016 11:59 PM CDT Results NM CARDIAC MPI STRESS TEST (Acce ssion [id number]) (Order [id number]) STRESS TEST PHARMACOLOGICAL ( (Order [id number]) Original Order Diagnosis: Dyslipidemia [E78.5 (ICD-10-CM)] Coronary artery disease, angina presence unspecified, unspecified vessel or lesion type, unspecified whether [place] or transplanted heart [I25.10 (ICD-10-CM)] Chest pain, rule out acute myocardial in farction [R07.9 (ICD-10-CM)] Dyslipidemia [E78.5 (ICD-10-CM)] Coronary artery disease, angina presence unspecified, unspecified vessel or lesion type, unspecified whether [place] or transplanted heart [I25.10 (ICD-10-CM)] Chest pain, rule out acute myocardial in farction [R07.9 (ICD-10-CM)] Reading Provider(s) Alexei Pratt MBBS PACs images are not viewable in [employer] Link. See text report below. 2017 12:32 [...] Patient Information Patient Name Sex Timur Schulz ([id number]) Male 1970 Que Lal MD PN CARDIAC SERVICES ORDERABL ES Performing Organization Address City/State/ZIP Code Phon e Number POCT PN POCT documented in this encounter Visit Diagnoses Diagnosis Dyslipidemia (HRC) - Primary Other and unspecified hyperlipidemia documented in this encounter Care Teams Road Production General Manager Relationship Specialty Start Date End Date Gagandeep Hinojosa MD PCP - General 05/17/12 1415 [facility] [place] [address] Vane Zarate Psychiatrist Psychiatry 03/22/12 documented as of this encounter
--- OUTSIDE RECORDS SUMMARY | 2022-03-14 18:44 | XMS_ITS | Encounter Summary ---
:1970 Author Organization [facility] Address [address] [place] [address] Care Team Providers Name Role Phone Gagandeep Hinojosa MD Primary Care Provider Reason for Visit Reason Comments MEDICATION REACTION Encounter Details Date Type Department Care Team Description 04/26/2017 Nurse Triage [place] [facility] Gagandeep Hinojosa, MEDIC ATION REACTION Medicine 1415 [facility] . 14[address] [facility] [place] [address] [place] [address] [phone] (Wo rk) Social History Tobacco Use Types [...] Pt informed ok to try the gum. O TECHNOLOGIST Gagandeep Hinojosa MD - 04/26/2017 4:04 PM CST Please call pt. OK to try Nicorette gum O TECHNOLOGIST Brielle Meza RN - 04/26/2017 3:41 PM [...] to answer question Protocols used: MEDICATION QUESTION LEYA-YDTCY-LY Pt asking if he can use Nicotine Gum or patches as well as the Wellbutrin he is taking? Has had 12 days of not smoking until he bought cigarettes this morning. Has had no side effects from the Wellbutrin, aside from some blunting of his emotions. O TECHNOLOGIST Pamela Neves - 04/26/2017 3:14 PM CST [...] iscausing or if the nicotine gum caused? O TECHNOLOGIST documented in this encounter Plan of Treatment Not on filedocumented as of this encounter Visit Diagnoses Not on filedocumented in this encounter Care Teams Recreational Programs Director Relationship Specialty Start Date End Date Gagandeep Hinojosa MD PCP - General 05/17/[address] [place] [address] [place] [address] Vnae Zarate Psychiatrist Psychiatry 03/22/12 documented as of this encounter
--- OUTSIDE RECORDS SUMMARY | 2022-03-14 18:44 | XMS_ITS | Encounter Summary ---
:1970 Author Organization [facility] Address [address] [place] [address] Care Team Providers Name Role Phone Gagandeep Hinojosa MD Primary Care Provider Reason for Visit Reason Comments Diabetes Encounter Details Date Type Department Care Team Description 02/16/2017 Office Visit Gagandeep Storm [facility] [place] type 2 diabetes mellitus with diabetic polyneuropathy, with long-term current use of insulin (HRC) (Primary Dx); Romario Rubio MD Encounter for immunization; [address] 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 ASHD (arteriosclerotic heart disease) ([facility]) I25.10 Basic Metabolic Panel 2. Encounter for immunization Z23 Influenza (Fluarix or Fluzone 0.5, 3+ yrs) 3. Uncontrolled type 2 diabetes mellitus with diabetic polyneuropathy, with long-term current use ofinsulin ([facility]) E11.42 POCT Glycosylated Hemoglobin (HB A1C) Z79.4 Microalb/Creat Ratio E11.65 4. Diabetic polyneuropathy associated with type 2 diabetes mellitus ([facility]) E11.42 5. shelter current use of insulin ([facility]) Z79.4 6. Type 2 diabetes mellitus with diabetic polyneuropathy, with long-term current use of insulin ([facility]) E11.42 Z79.4 7. Hyperlipidemia, unspecified hyperlipidemia type ([facility]) E78.5 Lipid Panel and Direct LDL(If Needed) 8. Tobacco use disorder ([facility]) F17.200 PLAN: 1. Again, his major [...] Microalb/Creat Ratio (08/15/2017 8:50 AM CDT) [facility] [employer] Method Time Signature Microalbumin 150.2 mg/L PN SOFT Urine U Creat Random 113 mg/dL PN SOFT Microalbumin/Crea 132.9 (H) 0.0 - PN SOFT tinine Ratio 30.0 Specimen Anatomical Collection Method Collection Time Receive d Time (Source) Location / / Volume Laterality Urine specimen 08/15/2017 8:50 AM 018 (specimen) CDT 11:33 AM CDT Narrative PN SOFT - 08/15/2017 12:05 PM CDT Performed at [facility], [address] [place] [address] CLIA number [id number] Gagandeep Hinojosa MD LAB_1 Performing Organization Address City/State/ZIP Code Phon e Number PN SOFT [address] [place] [address] [phone] (ABNORMAL) Lipid Panel and Direct LDL(If Needed) (08/15/2017 8:43 AM CDT) [facility] [employer] Method Time Signature Cholesterol 102 0 - [...] - 08/15/2017 3:34 PM CDT Performed at [facility], [address] [place] [address] CLIA number [id number] Gagandeep Hinojosa MD LAB_1 Performing Organization Address [facility] Phon e Number PN SOFT [address] [place] [address] (ABNORMAL) POCT Glycosylated Hemoglobin (HB A1C) (05/17/2017 1:59 PM CLASSIFIER OPERATOR) [facility] gist Method Time Signature Glycosolated [...] Volume Laterality 05/17/2017 1:59 PM 8 1:58 CLASSIFIER OPERATOR PM CLASSIFIER OPERATOR Narrative PN SOFT - 05/17/2017 2:15 PM CLASSIFIER OPERATOR Performed at [facility], [facility] [place] [address] CLIA number [id number] Gagandeep Hinojosa MD LAB_1 Performing Organization Address [facility] Phon e Number PN SOFT [address] [place] [address] documented in this encounter Visit Diagnoses Diagnosis Uncontrolled type 2 diabetes mellitus wi th diabetic polyneuropathy, with long-term current use of insulin - Primary Encounter for immunization Need for other specified prophylactic va ccination against single bacterial disease Diabetic polyneuropathy associated with type 2 diabetes mellitus (HRC) shelter current use of insulin (HRC) Encounter for long-term (current) use of insulin Type 2 diabetes mellitus with diabetic p olyneuropathy, with long-term current use of insulin (HRC) Hyperlipidemia, unspecified hyperlipidem ia type (HRC) Tobacco use disorder (HRC) Tobacco use disorder ASHD (arteriosclerotic heart disease) ([facility]) Coronary atherosclerosis of unspecified type of vessel, tanacross or graft Uncontrolled type 2 diabetes mellitus wi th diabetic polyneuropathy, with long-term current use of insulin Hyperlipidemia, unspecified hyperlipidem ia type (HRC) Uncontrolled type 2 diabetes mellitus wi th diabetic polyneuropathy, with long-term current use of insulin Uncontrolled type 2 diabetes mellitus wi thout complication, without long-term current use of insulin documented in this encounter Care Teams Literacy Consultant Relationship Specialty Start Date End Date Gagandeep Hinojosa MD PCP - General 05/17/[address] [facility] [place] [address] Vane Zarate Psychiatrist Psychiatry 03/22/12 documented as of this encounter
--- OUTSIDE RECORDS SUMMARY | 2022-03-14 18:44 | XMS_ITS | Encounter Summary ---
:1970 Author Organization [facility] Address [address] [place] [address] Care Team Providers Name Role Phone Gagandeep Michaud MD Primary Care Provider Reason for Visit Reason Comments Refill metoPROLOL succinate (TOPROL XL) 50 MG 24 hour release tablet [Pharmacy Med Name: METOPROLOL ER SUCCINAT E 50MG TABS] Encounter Details Date Type Department Care Team Description 08/08/2016 Refill Gagandeep Storm, Refrose mary l (metoPROLOL Medicine MD succinate (TOPROL XL) [address] MG 24 hour release [place] Vigil [address] [place] [address] tablet [Pharmacy Med [phone] (Wo rk) Name: METOPROLOL ER SUCCINATE 50MG [...] MICHAUD Ordering User: CHA MUIR Interface, Out ParentingInformer Query - 08/08/2016 10:29 AM CDT metoPROLOL [...] 72 mm Hg on 07/19/2016 Powered by [employer], Reference: [id number], 08/08/2016 10:29:01 AM CDT, Pool: MANUEL MOORE ([id number]) documented in this encounter Plan of Treatment Not on filedocumented as of this encounter Visit Diagnoses Not on filedocumented in this encounter Care Teams Manager Social Responsibility Relationship Specialty Start Date End Date Gagandeep Michaud MD PCP - General 05/17/12 [address] [place] Hernandez [address] Vane Zarate Psychiatrsamantha Psychiatry 03/22/12 documented as of this encounter
--- OUTSIDE RECORDS SUMMARY | 2022-03-14 18:44 | XMS_ITS | Encounter Summary ---
:1970 Author Organization [facility] Address [address] [place] [address] Care Team Providers Name Role Phone Gagandeep Hinojosa MD Primary Care Provider Reason for Visit Reason Comments SMOKING CESSATION Encounter Details Date Type Department Care Team Description 04/05/2017 Office Visit Gagandeep Storm Tobacco use disorder Romario Rubio MD (Primary Dx) [address] [facility] . [address] [place] [address] Ave [phone] [place], [place] [address] Social History Tobacco Use [...] Comments Blood Pressure 134/80 04/05/2017 3:18 PM REJECTED ITEMS CLERK Pulse - - Temperature - - Respiratory Rate - - Oxygen Saturation - - Inhaled Oxygen Concentration - - Weight 100.7 kg (222 lb) 04/05/2017 3:18 PM REJECTED ITEMS CLERK Height 177.8 cm (5' 10) 04/05/2017 3:18 PM REJECTED ITEMS CLERK Body Mass Index 31.85 04/05/2017 3:18 PM REJECTED ITEMS CLERK documented in this encounter Progress Notes Gagandeep Hinojosa MD - 04/05/2017 3:30 PM CST ICD-10-CM 1. Tobacco use disorder ([facility]) F17.200 doxycycline monohydrate (ADOXA) 100 MG tablet [...] Noted ??? Tobacco abuse ([facility]) 02/24/2016 ??? Tinea versicolor 07/18/2015 ??? Diabetic eye exam ([facility]) 12/12/2013 Overview Note: Eye exam done at [facility] on 12/12/13. Mild diabetic retinopathy in right eye. ??? Tobacco use disorder ([facility]) 10/26/2012 ??? Anemia 05/02/2012 Overview Note: Anemia, unspecified ??? Health correction, active care coordination 03/22/2012 Overview Note: Yarn Weigher: JOSETTE Yip [phone] Care coordination focus: T2DM, financial resources Living situation: lives with spouse Important notes: SSDI, significant insulin resistance, uses Relion insulin, commonly reaches Medicare Coverage Gap See care plan under Chart Review > [facility] [place] > [facility] CARE PLAN REPORT ??? Microalbuminuria 02/04/2012 ??? WA, old ([facility]) 09/16/2011 ??? History of PTCA 09/16/2011 Overview Note: History of PTCA 04/2011 BMS RCA ??? Obesity, Class I, BMI 30-34.9 ([facility]) 09/16/2011 Overview Note: Body mass index is 31.16 kg/(m^2). ??? Hyperlipidemia with target LDL less than 70 ([facility]) 06/08/2011 Overview Note: Hyperlipidemia LDL goal < 70 ??? ASHD (arteriosclerotic heart disease) ([facility]) 05/04/2011 ??? Erectile dysfunction 01/22/2011 Overview Note: side effect Risperdal ??? Type 2 diabetes mellitus, uncontrolled ([facility]) 12/11/2010 Overview Note: Type II or unspecified type diabetes mellitus without mention of complication, uncontrolled ([facility]) ??? Dermatophytosis of body 09/04/2010 Class: Historical Overview Note: Tinea Corporis ??? Coronary atherosclerosis ([facility]) 12/22/2009 Overview Note: LW Modifier: mod RCA, negative nuclear stress test ; CAD ??? Nonspecific abnormal results of liver function study 12/22/2009 Overview Note: Liver Function Tests Abnormal ??? Bipolar I disorder ([facility]) 09/15/2005 Overview Note: LW Onset: [id number] ; Bipolar I Dis FAMILY HISTORY OR [...] its administration and expectations Follow-up: 3-4 weeks CTED ITEMS CLERK documented in this encounter Plan of Treatment Not on filedocumented as of this encounter Visit Diagnoses Diagnosis Tobacco use disorder (HRC) - Primary Tobacco use disorder documented in this encounter Care Teams Button Breaker Relationship Specialty Start Date End Date Gagandeep Hinojosa MD PCP - General 05/17/[address] [place], [place] [address]KATIANA STEPHENSON [address] Vane Zarate Psychiatrist Psychiatry 03/22/12 documented as of this encounter
--- OUTSIDE RECORDS SUMMARY | 2022-03-14 18:44 | XMS_ITS | Encounter Summary ---
:1970 Author Organization [facility] Address [address] [place] [address] Care Team Providers Name Role Phone Gagandeep Hinojosa MD Primary Care Provider Reason for Visit Reason Onset Date Comments Refill 11/26/2016 Encounter Details Date Type Department Care Team Description 11/26/2016 Refill [employer] [address]ar MBBS Refill Endocrinology [address] [place] [address] [place] [address] [phone] Social History Tobacco Use Types Packs/Day Years [...] uncontrolled documented in this encounter Care Teams Er Nurse Relationship Specialty Start Date End Date Gagandeep Hinojosa MD PCP - General 05/17/12 1415 [facility] [place] Gerber [address] Vane Zarate Psychiatrist Psychiatry 03/22/12 documented as of this encounter
--- OUTSIDE RECORDS SUMMARY | 2022-03-14 18:44 | XMS_ITS | Encounter Summary ---
:1970 Author Organization [facility] Address [address] [place] [address] Care Team Providers Name Role Phone Gagandeep Hinojosa MD Primary Care Provider Reason for Visit Reason Onset Date Comments [facility] Phone Visit 07/21/2016 Encounter Details Date Type Department Care Team Description 07/21/2016 Care Coord Phone [facility] Deborah Rodrigues, [facility] Phone Visit [facility] [address] [facility] . [address] [place] [address] [place] [address] [phone] Social History Tobacco Use Types Packs/Day Years [...] Deborah Rodrigues, [facility] - 07/21/2016 3:30 PM CDT Manager Actuarial - Phone Call Contact with: Rustam Reason [...] and check-in, in one week. Shared plan: -[facility] phone follow-up in one week. Pt verbalized understanding and agreed with plan of care and follow up. documented in this encounter Plan of Treatment Not on filedocumented as of this encounter Visit Diagnoses Diagnosis Health custodial, active care coordinati on - Primary documented in this encounter Care Teams Seasonal Warehouse Associate Relationship Specialty Start Date End Date Gagandeep Hinojosa MD PCP - General 05/17/12 [facility]5 KAT[place]NA Hernandez [id number] Vane Zarate Psychiatrist Psychiatry 03/22/12 documented as of this encounter
--- OUTSIDE RECORDS SUMMARY | 2022-03-14 18:44 | XMS_ITS | Encounter Summary ---
:1970 Author Organization [facility] Address [address] [place] [address] Care Team Providers Name Role Phone Gagandeep Hinojosa MD Primary Care Provider Reason for Visit Reason Onset Date Comments [facility] Phone Visit 07/12/2016 Encounter Details Date Type Department Care Team Description 07/12/2016 Care Coord Phone [facility] Deborah Rodrigues, [facility] Phone Visit [facility] 14[address] [facility] . [address] [place] [address] [place] [address] [phone] Social History Tobacco Use Types Packs/Day Years Used Date Smoking Tobacco: Every Day Cigarettes 0 25 Smokeless Tobacco: Former Qu it: 10/25/2012 Comments: Smoking History Packs/day: Alcohol Use Standard Drinks/Week Comments No 0 (1 standard drink = 0.6 oz pure Alcoho lic Drinks/day: Amount:0; alcohol) Freq:Never; Sex Assigned at Date Recorded Not on file documented as of this encounter Progress Notes Deborah Rodrigues, [facility] - 07/12/2016 2:30 PM CDT Vegetable Tester - Phone Call Contact with: Rustam Reason for call: Care Coordination Discussion/actions: Received a phone call from Rustam, stating that he has canceled his mental healthfollow-[facility] at [facility]. He said that he did not feel like these appointments were beneficial, it was kind of a cold in sterile environment. Rustam said that his doctor put him on Ativan PRN, to help reduce his anxiety. He requested to meet with Care Coordination for counseling, as I feel comfortable with you. I explained that I do not do intermediate counseling, but could help coordinate appropriate mental health services. I agreed to meet with Rustam to discuss appropriate services and goover his coping skills while at home. Rustam agreed with this plan and denied any other concerns at this time. Shared plan: [facility] appointment 07/13 at 11:00. Pt verbalized understanding and agreed with plan of care and follow up. documented in this encounter Plan of Treatment Not on filedocumented as of this encounter Visit Diagnoses Diagnosis Health chcf, active care coordinati on - Primary documented in this encounter Care Teams Shake Maker Relationship Specialty Start Date End Date Gagandeep Hinojosa MD PCP - General 05/17/12 1415 [facility] [place] Gerber [address] Vane Zarate Psychiatrist Psychiatry 03/22/12 documented as of this encounter
--- OUTSIDE RECORDS SUMMARY | 2022-03-14 18:44 | XMS_ITS | Encounter Summary ---
:1970 Author Organization [facility] Address [address] [place] [address] Care Team Providers Name Role Phone Gagandeep Hinojosa MD Primary Care Provider Reason for Visit Reason Onset Date Comments RESULTS, TEST 10/21/2016 Encounter Details Date Type Department Care Team Description 10/21/2016 Telephone [facility] Gagandeep Hionjosa MD RESULTS, TEST 1415 [facility] . [address] [place] [address] [place], [place] [address] (Wo rk) Social History Tobacco Use Types [...] EMG results were abnormal per PCP per rafy nurse, pt advised to schedule appt to [...] When and where was test done? 10/13/16 [place] Who ordered the test? Gagandeep Hinojosa MD documented in this encounter Plan of Treatment Not on filedocumented as of this encounter Visit Diagnoses Not on filedocumented in this encounter Care Teams Application Integration Specialist Relationship Specialty Start Date End Date Gagandeep Hinojosa MD PCP - General 05/17/12 1415 [facility] K[place] Gerber [address] Vane Zarate Psychiatrist Psychiatry 03/22/12 documented as of this encounter
--- OUTSIDE RECORDS SUMMARY | 2022-03-14 18:44 | XMS_ITS | Encounter Summary ---
:1970 Author Organization [facility] Address [address] [place] [address] Care Team Providers Name Role Phone Gagandeep Hinojosa MD Primary Care Provider Encounter Details Date Type Department Care Team Description 02/16/2017 Lab Visit [facility] Uncontrolled type 2 diabetes mellitus without complication, with long-term current use of insulin (HRC) [E11.65,Z79.4]; 14[address] [facility] . Hyperlipidemia, unspecified hyperlipidemia type (HRC) [E78.5] [place] [address] Social History Tobacco Use Types Packs/Day Years [...] in NEEDED) hyperlipidemia type the resu lts ([facility]) [E78.5] section. EXTRA SERUM STAT 02/16/2017 10:51 Results for this SEPARATOR TUBE AM CDT procedure are in (YELLOW) the results section. documented in this encounter Results (ABNORMAL) Microalb/Creat Ratio (02/16/2017 11:01 AM CDT) [facility] Method Time Signature Microalbumin 124.6 mg/L PN SOFT Urine U Creat Random 78 mg/dL PN SOFT Microalbumin/Crea 159.7 (H) 0.0 - PN SOFT tinine Ratio 30.0 Specimen Anatomical Collection Method Collection Time Receive d Time (Source) Location / / Volume Laterality Urine specimen 02/16/2017 11:01 7 2:41 (specimen) AM CDT PM CDT Narrative PN SOFT - 02/16/2017 3:37 PM CDT Performed at [facility], [address] [place] [address] CLIA number [id number] Gagandeep Hinojosa MD LAB_1 Performing Organization Address City/State/ZIP Code Phon e Number PN SOFT [address] [place] [address] [phone] (ABNORMAL) Lipid Panel and Direct LDL(If Needed) (02/16/2017 10:54 AM CDT) [facility] Method Time Signature Cholesterol 179 0 - [...] - 02/16/2017 3:18 PM CDT Performed at [facility], [address] [place] [id number] CLIA number [id number] Gagandeep Hinojosa MD LAB_1 Performing Organization Address [facility] Code Phon e Number PN SOFT [address] [place] [address] (ABNORMAL) POCT Glycosylated Hemoglobin (HB A1C) (02/16/2017 [...] - 02/16/2017 11:05 AM CDT Performed at [facility], [address] [place], [place] [address] CLIA number [id number] Gagandeep Hinojosa MD LAB_1 Performing Organization Address [facility] Phon e Number PN SOFT [address] [place] [address] Extra Serum Separator Tube (yellow) (02/16/2017 10:51 AM CDT) P athologist Signature Extra SST Top Drawn PN SOFT Drawn Specimen (Source) Anatomical Location Collection Method / Collectio n Time Received Time / Laterality Volume Narrative PN SOFT - 02/16/2017 10:51 AM CDT Performed at [facility], [address] [place] [address] CLIA number [id number] Gagandeep Hinojosa MD LAB_1 Performing Organization Address [facility] Phon e Number PN SOFT [address] [place] [address] documented in this encounter Visit Diagnoses Diagnosis Uncontrolled type 2 diabetes mellitus wi thout complication, with long-term current use of insulin (HRC) [E11.65,Z79.4] Hyperlipidemia, unspecified hyperlipidem ia type ([facility]) [E78.5] documented in this encounter Care Teams Smt Machine Operator Relationship Specialty Start Date End Date Gagandeep Hinojosa MD PCP - General 05/17/12 [address] [place] [address] Vane Zarate Psychiatrist Psychiatry 03/22/12 documented as of this encounter
--- OUTSIDE RECORDS SUMMARY | 2022-03-14 18:44 | XMS_ITS | Encounter Summary ---
:1970 Author Organization [facility] Address [address] [place] [address] Care Team Providers Name Role Phone Gagandeep Hinojosa MD Primary Care Provider Reason for Visit Reason Onset Date Comments [facility] Phone Visit 07/27/2016 Encounter Details Date Type Department Care Team Description 07/27/2016 Care Coord Phone [facility] Deborah Rodrigues, [facility] Phone Visit [facility] 1415 [facility] . [address] [place] [address] [place] [address] [phone] Social History Tobacco Use Types Packs/Day Years [...] Rodrigues, [facility] - 07/27/2016 3:30 PM CDT Steel Rule Inspector - Phone Call Contact with: Rustam Reason [...] Primary documented in this encounter Care Teams Natural Resources Extension Educator Relationship Specialty Start Date End Date Gagandeep Hinojosa MD PCP - General 05/17/12 [address] [facility] [place] Gerber [address] Vane Zarate Psychiatrist Psychiatry 03/22/12 documented as of this encounter
--- OUTSIDE RECORDS SUMMARY | 2022-03-14 18:44 | XMS_ITS | Encounter Summary ---
:1970 Author Organization [facility] Address [address] [place] [address] Care Team Providers Name Role Phone Gagandeep Hinojosa MD Primary Care Provider Reason for Visit Reason Onset Date Comments FOLLOW-UP,DIABETES 07/18/2016 Encounter Details Date Type Department Care Team Description 07/18/2016 Nurse Triage [facility] Gagandeep Hinojosa, OCTAVIO W-MICHELLE,DIABETES Medicine 1415 [facility] . [address] [place] [address] [place], [place] [address] (Wo rk) Social History Tobacco Use Types [...] test QID. Protocol: DIABETES - LOW BLOOD [id number](07/04) Affirmative: Low blood sugar prevention, questions about [...] Primary documented in this encounter Care Teams Lease Operator Relationship Specialty Start Date End Date Gagandeep Hinojosa MD PCP - General 05/17/[address] [place] [address] [place] [address] Vane Zarate Psychiatrist Psychiatry 03/22/12 documented as of this encounter
--- OUTSIDE RECORDS SUMMARY | 2022-03-14 18:44 | XMS_ITS | Encounter Summary ---
:1970 Author Organization [facility] Address [address] [place] [address] Care Team Providers Name Role Phone Gagandeep Hinojosa MD Primary Care Provider Reason for Referral Procedure/Equipment (Routine) - Closed Specialty Diagnoses / Procedures Referred By Contact Refer red To Contact Diagnoses Paresthesia of lower limb Gagandeep Hinojosa MD [address] [place] [address] Referral ID Status Reason Start Date Expiration Date Visits Requ ested Visits Authorized [id number] Closed 09/07/2016 12/07/2017 1 1 Scheduling Instructions Your provider has recommended an appoint ment with [facility]. You may call [phone] to sche dule your appointment. If you do not schedule an appointment within the next 1 to 3 sine days, we will call you to help arrange your appointment. We suggest you call Jott about your coverage and benefits for this appointme nt. Reason for Visit Reason Comments Diabetes LEG PAIN 1 month, left Encounter Details Date Type Department Care Team Description 09/07/2016 Office Visit Gagandeep Storm llmarissa type 2 diabetes mellitus without complication, with long-term current use of insulin (HRC) [E11.65,Z79.4] (Primary Dx); Romario Rubio MD Paresthesia of lower limb; [address] [place] 1415 [facility] Type 2 d iabetes mellitus without complication, with long-term current use of insulin (HRC) [E11.9, Z79.4]; Ave. Ave regional intermodal truck driver current use of insulin ([facility]); [place]AT[place]NA Vigil [address] [place], [place] Essential hypertension; [phone] Hyperlipidemia, unspecified hyperlipidem ia type ([facility]) [E78.5]; [phone] Tobacco use dis order (Work) Social History [...] insulin (HRC) [E11.9, Z79.4] E11.9 Z79.4 4. alf current use of insulin (HRC) Z79.4 5. [...] (ABNORMAL) Microalb/Creat Ratio (02/16/2017 11:01 AM CDT) [facility] Kihon Method Time Signature Microalbumin 124.6 mg/L PN SOFT Urine U Creat Random 78 mg/dL PN SOFT Microalbumin/Crea 159.7 (H) 0.0 - PN SOFT tinine Ratio 30.0 Specimen Anatomical Collection Method Collection Time Receive d Time (Source) Location / / Volume Laterality Urine specimen 02/16/2017 11:01 7 2:41 (specimen) AM CDT PM CDT Narrative PN SOFT - 02/16/2017 3:37 PM CDT Performed at [facility], [address] [place] [address] CLIA number [id number] Gagandeep Hinojosa MD LAB_1 Performing Organization Address City/State/ZIP Code Phon e Number PN SOFT [address] [place] [address] [phone] (ABNORMAL) Lipid Panel and Direct LDL(If Needed) (02/16/2017 10:54 AM CDT) [facility] Kihon Method Time Signature Cholesterol 179 0 - [...] - 02/16/2017 3:18 PM CDT Performed at [facility], [address] [place] [address] CLIA number [id number] Gagandeep Hinojosa MD LAB_1 Performing Organization Address [facility] Phon e Number REINA EDMONDS [address] [place] [address] (ABNORMAL) POCT Glycosylated Hemoglobin (HB A1C) (02/16/2017 10:54 AM CDT) [facility] gist Method Time Signature Glycosolated [...] - 02/16/2017 11:05 AM CDT Performed at [facility], [address] [place] [address] CLIA number [id number] Gagandeep Hinojosa MD LAB_1 Performing Organization Address [facility] Phon e Number REINA EDMONDS [address] [place] [address] documented in this encounter Visit Diagnoses Diagnosis Uncontrolled type 2 diabetes mellitus wi thout complication, with long-term current use of insulin (HRC) [E11.65,Z79.4] - Pr imary Paresthesia of lower limb Disturbance of skin sensation Type 2 diabetes mellitus without complic ation, with long-term current use of insulin (HRC) [E11.9, Z79.4] alf current use of insulin (HRC) Encounter for long-term (current) use of insulin Essential hypertension (HRC) Unspecified essential hypertension Hyperlipidemia, unspecified hyperlipidem ia type (HRC) [E78.5] Tobacco use disorder (HRC) Tobacco use disorder Uncontrolled type 2 diabetes mellitus wi thout complication, with long-term current use of insulin (HRC) [E11.65,Z79.4] Hyperlipidemia, unspecified hyperlipidem ia type (HR) [E78.5] documented in this encounter Care Teams Cereal Maker Relationship Specialty Start Date End Date Gagandeep Hinojosa MD PCP - General 05/17/12 1415 [facility] [place] Gerber [address] Vane Zarate Psychiatrsamantha Psychiatry 03/22/12 documented as of this encounter
--- OUTSIDE RECORDS SUMMARY | 2022-03-14 18:44 | XMS_ITS | Encounter Summary ---
:1970 Author Organization [facility] Address [address] [place] [address] Care Team Providers Name Role Phone Gagandeep Hinojosa MD Primary Care Provider Reason for Visit Reason Onset Date Comments [facility] Phone Visit 07/15/2016 Encounter Details Date Type Department Care Team Description 07/15/2016 Care Coord Phone Judy Luke R N [facility] Phone Visit Medicine 1415 [facility] 1415 [facility] [place] [address] [place] [address] [phone] Social History Tobacco Use Types Packs/Day Years [...] RN - 07/15/2016 12:58 PM CDT RN Hand Spinner - Diabetes Follow-Up Current diabetes medication regimen: Tresiba 70 units in AM ?? Novolin R 70 BID Metformin 500 mg BID (unable to tolerate full therapeutic dose secondary to GI side effects) CURRENT GLUCOSE PATTERNS: since 07/14/16 Fastin, 162 Before lunch: 74, 71 Before dinner: 153 Before bed: 102 Hypoglycemia (previous two weeks): two readings in the 70's Assessment/education: Rustam called today to report another episode of hypoglycemia. We spoke yesterday and decreased his insulin dosing, but his BG still decreased into the low 70's today. He used 3 pieces of hard candy to correct his low and is feeling better. Rustam is scheduled to see endocrinology next week. He would like to attend DM education, but prefersto stay in [place]. I will initiate a referral to [facility]. Teach back method used to verify understanding. [...] insulin documented in this encounter Care Teams Clinical Transformation Specialist Relationship Specialty Start Date End Date Gagandeep Hinojosa MD PCP - General 05/17/[address] [place], [place] [address] [address] Vane Zarate Psychiatrsamantha Psychiatry 03/22/12 documented as of this encounter
--- OUTSIDE RECORDS SUMMARY | 2022-03-14 18:44 | XMS_ITS | Encounter Summary ---
:1970 Author Organization [facility] Address [address] [place] [address] Care Team Providers Name Role Phone Gagandeep Hinojosa MD Primary Care Provider Reason for Visit Reason Comments Procedure Left lower extremity EMG Procedure/Equipment (Routine) - Closed Specialty Diagnoses / Procedures Referred By Contact Refer red To Contact Diagnoses Paresthesia of lower limb Gagandeep Hinojosa MD [address] [place] [address] Referral ID Status Reason Start Date Expiration Date Visits Requ ested Visits Authorized [id number] Closed 09/07/2016 12/07/2017 1 1 Encounter Details Date Type Department Care Team Description 10/13/2016 Procedure Visit Verito Mackenzie Procedure (L eft Rehabilitative Ladi Rubio MD lower extremity Medicine [address] [place] [address] Dr EMG) [address] [place] [address] [phone] Social History Tobacco Use Types Packs/Day Years [...] Exam Date: 10/13/2016 Name: Timur Krishnamurthy MR#: [id number] Gender: Male Date of : 1970 Age: [...] (HRC) documented in this encounter Care Teams Child Study Team Director Relationship Specialty Start Date End Date Gagandeep Hinojosa MD PCP - General 05/17/12 6[address] [facility] [place] [address] Vane Zarate Psychiatrist Psychiatry 03/22/12 documented as of this encounter
--- OUTSIDE RECORDS SUMMARY | 2022-03-14 18:44 | XMS_ITS | Encounter Summary ---
:1970 Author Organization [facility] Address [address] [place] [address] Care Team Providers Name Role Phone Gagandeep Michaud MD Primary Care Provider Reason for Visit Reason Onset Date Comments Refill 04/13/2017 insulin regular (NOV VONDA R) 100 UNIT/ML injection Encounter Details Date Type Department Care Team Description 04/13/2017 Refill [facility] Gagandeep Michaud, Rochelle l (insulin regular Medicine (NOVOLIN R) 100 UNIT/ML [address] injection) [place] [address] [place] [address] [phone] (Wo rk) Social History Tobacco Use Types [...] Provider: GAGANDEEP MICHAUD Ordering User: ABBIE MITCHELL [employer] Interface, Out [employer] Query - 04/13/2017 1:09 PM CST insulin regular (NOVOLIN R) 100 UNIT/ML injection Medication started: 07/28/2011 Last ordered by GAGANDEEP MICHAUD: 12/03/2016 (131 days ago) QTY: 45, Refills: [...] : 11.8 % on 02/16/2017 Powered by [employer], Reference: [id number], 04/13/2017 1:09:42 PM [employer], Pool: MANUEL REFILL ([id number]) [employer] documented in this encounter Plan of Treatment Not on filedocumented as of this encounter Visit Diagnoses Diagnosis Uncontrolled type 2 diabetes mellitus wi thout complication, with long-term current use of insulin documented in this encounter Care Teams Archives Director Relationship Specialty Start Date End Date Gagandeep Michaud MD PCP - General 05/17/12 1415 [facility] [place] [address] Vane Zarate Psychiatrist Psychiatry 03/22/12 documented as of this encounter
--- OUTSIDE RECORDS SUMMARY | 2022-03-14 18:44 | XMS_ITS | Encounter Summary ---
:1970 Author Organization [facility] Address [address] [place] [address] Care Team Providers Name Role Phone Gagandeep Michaud MD Primary Care Provider Reason for Visit Reason Comments Refill buPROPion (WELLBUTRIN SR) 15 0 MG 12 hour release tablet [Pharmacy Med Name: BUPROPION SR 150MG TABLETS ( 12 H)] Encounter Details Date Type Department Care Team Description 04/05/2017 Refill Gagandeep Storm Refil l (buPROPion Medicine (WELLBUTRIN SR) [address] 12 hour release tablet [place] Vig[place] [address] [place] [address] [Pharmacy Med Name: [phone] (Wo rk) BUPROPION SR 150MG TABLETS ( [...] Provider: GAGANDEEP MICHAUD Ordering User: LEN ROWELL CAR REPAIRER Interface, Out [employer] Query - 04/05/2017 4:16 PM CST buPROPion (WELLBUTRIN SR) 150 MG 12 hour release tablet [Pharmacy Med Name: BUPROPION SR 150MG TABLETS (12 H)] Medication started: 04/05/2017 Last ordered by GAGANDEEP MICHAUD F: 04/05/2017 (0 days ago) QTY: 60, Refills: [...] 80 mm Hg on 04/05/2017 Powered by [employer], Reference: [id number], 04/05/2017 4:16:49 PM MINE CAR REPAIRER, Pool: MANUEL LANDAILL ([id number]) CAR REPAIRER documented in this encounter Plan of Treatment Not on filedocumented as of this encounter Visit Diagnoses Diagnosis Tobacco use disorder (HRC) Tobacco use disorder documented in this encounter Care Teams Asphalt Screed Operator Relationship Specialty Start Date End Date Gagandeep Michaud MD PCP - General 05/17/12 [facility]5 [place] [address] Vane Zarate Psychiatrist Psychiatry 03/22/12 documented as of this encounter
--- OUTSIDE RECORDS SUMMARY | 2022-03-14 18:44 | XMS_ITS | Encounter Summary ---
:1970 Author Organization [facility] Address [address] [place] [address] Care Team Providers Name Role Phone Gagandeep Hinojosa MD Primary Care Provider Reason for Visit Reason Onset Date Comments UPDATE 08/19/2016 Encounter Details Date Type Department Care Team Description 08/19/2016 Telephone [facility] [address] Sabina Alcantar MBBS UPDATE [facility]ocrinology [address] [facility] [address] [place] [address] [place], [place] [address] [phone] Social History Tobacco Use Types Packs/Day Years [...] In agreement of plan. No further questions. IT Glenys Alcantar MBBS - 08/20/2016 8:03 AM [...] of Novolin R breakfast and dinner. 20 [phone] documented in this encounter Plan of Treatment Not on filedocumented as of this encounter Visit Diagnoses Not on filedocumented in this encounter Care Teams Laboratory Technical Specialist Relationship Specialty Start Date End Date Gagandeep Hinojosa MD PCP - General 05/17/12 [address] [place] [address] Vane Zarate Psychiatrist Psychiatry 03/22/12 documented as of this encounter
--- OUTSIDE RECORDS SUMMARY | 2022-03-14 18:44 | XMS_ITS | Encounter Summary ---
:1970 Author Organization [facility] Address [address] [place] [address] Care Team Providers Name Role Phone Gagandeep Hinojosa MD Primary Care Provider Reason for Visit Reason Comments RESULTS, TEST emg Encounter Details Date Type Department Care Team Description 10/22/2016 Office Visit Gagandeep Storm Sensory neuropathy Romario Rubio MD (Primary Dx) 1415 [facility] . [address] [place] [address] [address] [phone] [place], [place] [address] Social History Tobacco Use [...] - 10/22/2016 2:00 PM CDT Vitamin D 2805-7014 IU daily Vitamin B 6 50 mg dailt Folic 1 mg daily Multi-vitamin documented in this encounter Progress Notes Gagandeep Hinojosa MD - 10/22/2016 2:00 PM CDT ICD-10-CM 1. 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 Tobacco abuse ([facility]) 02/24/2016 ??? Tinea versicolor 07/18/2015 ??? Diabetic eye exam ([facility]) 12/12/2013 Overview Note: Eye exam done at [facility] on 12/12/13. Mild diabetic retinopathy in right eye. ??? Tobacco use disorder ([facility]) 10/26/2012 ??? ACS (acute coronary syndrome) ([facility]) 10/25/2012 ??? Anemia 05/02/2012 ??? Health snf, active care coordination 03/22/2012 Overview Note: Elevator Constructor Hydraulic: JOSETTE Yip [phone] Care coordination focus: T2DM, financial resources Living situation: lives with spouse Important notes: SSDI, significant insulin resistance, uses Relion insulin, commonly reaches Medicare Coverage Gap See care plan under Chart Review > [facility] Reports > [facility] CARE PLAN REPORT ??? Microalbuminuria 02/04/2012 ??? WA, old ([facility]) 09/16/2011 ??? History of PTCA 09/16/2011 ??? Obesity, Class I, BMI 30-34.9 ([facility]) 09/16/2011 Overview Note: Body mass index is 31.16 kg/(m^2). ??? Hyperlipidemia with target LDL less than 70 ([facility]) 06/08/2011 ??? ASHD (arteriosclerotic heart disease) ([facility]) 05/04/2011 ??? Erectile dysfunction 01/22/2011 Overview Note: side effect Risperdal ??? Type 2 diabetes mellitus, uncontrolled ([facility]) 12/11/2010 ??? Dermatophytosis of body 09/04/2010 Class: Historical ??? Coronary atherosclerosis ([facility]) 12/22/2009 Overview Note: LW Modifier: mod RCA, negative nuclear stress test ??? Nonspecific abnormal results of liver function study 12/22/2009 ??? Bipolar I disorder ([facility]) 09/15/2005 Overview Note: LW Onset: FAMILY [...] werenormal. ASSESSMENT /PLAN ICD-10-CM 1. 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
--- OUTSIDE RECORDS SUMMARY | 2022-03-14 18:44 | XMS_ITS | Encounter Summary ---
:1970 Author Organization [facility] Address [address] [place] [address] Care Team Providers Name Role Phone Gagandeep Hinojosa MD Primary Care Provider Reason for Visit Reason Onset Date Comments [facility] Phone Visit 07/13/2016 Encounter Details Date Type Department Care Team Description 07/13/2016 Care Coord Phone Judy Luke R N [facility] Phone Visit Medicine 1415 [facility] 1415 [facility] [place] [address] [place] [address] [phone] Social History Tobacco Use Types Packs/Day Years [...] RN - 07/13/2016 12:57 PM CDT RN Construction Cost Estimator - Diabetes Follow-Up Current diabetes medication regimen: [...] the IDC. He prefers to stay in [place]. Therefore, I recommended Rustam inform the insurance follow up representative that Dr Hinojosa will refer him to [...] (HRC) documented in this encounter Care Teams Actuarial Internship Relationship Specialty Start Date End Date Gagandeep Hinojosa MD PCP - General 05/17/12 [address] [place] [address] Vane Zarate Psychiatrist Psychiatry 03/22/12 documented as of this encounter
--- OUTSIDE RECORDS SUMMARY | 2022-03-14 18:44 | XMS_ITS | Encounter Summary ---
:1970 Author Organization [facility] Address [address] [place] [address] Care Team Providers Name Role Phone Gagandeep Hinojosa MD Primary Care Provider Reason for Referral Consult/Transfer Care (Routine) - Closed Specialty Diagnoses / Procedures Referred By Contact Refer red To Contact Diagnoses Controlled type 2 diabetes with neuropathy (HRC) Glenys Alcantar MBBS [address] [place], [place] [address] Referral ID Status Reason Start Date Expiration Date Visits Requ ested Visits Authorized [id number] Closed 07/19/2016 10/18/2017 1 1 Scheduling Instructions Your provider has recommended an appoint ment with [facility]. You may call [phone] to schedule yo appointment. If you do [...] use of insulin (HRC) Gagandeep Hinojosa MD [address] [place] [address] Referral ID Status Reason Start Date Expiration Date Visits Requ ested Visits Authorized [id number] Closed 06/21/2016 09/20/2017 1 1 Encounter Details Date Type Department Care Team Description 07/19/2016 Office Visit [facility] [address] Glenys Alcantar ar I disorder ([facility]) (Primary Dx); Endocrinology REINA Belcher Controlled type 2 diabetes with neuropat hy ([facility]); [address] Yady French [address] [place] Atheroscl erosis of coronary artery, angina presence unspecified, unspecified vessel or lesion type, unspecified whether [place] or transplanted heart ([facility]); [address] Hyperlipidemia with target LDL less than 70; [facility], [facility], [place] [address] [phone] Social History Tobacco Use Types Packs/Day Years [...] - 07/19/2016 2:32 PM CDT [facility] Department of Endocrinology, Diabetes and Metabolism [...] takes lisinopril 10 mg daily BP today opn381/72. He takes atorvastatin 80 mg daily, he has history of CAD s/p DC and PCI in 2011. ROS: A 3 [...] and exercise, I will refer him to IDC for further teaching. We will try to [...] >50% was spent on counseling. REINA Barrera Grommet Man documented in this encounter Plan of Treatment [...] encounter Visit Diagnoses Diagnosis Bipolar I disorder (C) - Primary Bipolar I disorder, most recent episode (or current) unspecified Controlled type 2 diabetes with neuropat hy (HR) Type II or unspecified type diabetes jasen litus with neurological manifestations, not stated as uncontrolled Atherosclerosis of coronary artery, dequan na presence unspecified, unspecified vessel or lesion type, unspecified whether sav[place] ve or transplanted heart (HR) Hyperlipidemia with target LDL less than 70 (HRC) Other and unspecified hyperlipidemia Microalbuminuria Proteinuria documented in this encounter Care Teams Manager Consumer Insights Relationship Specialty Start Date End Date Gagandeep Hinojosa MD PCP - General 05/17/12 1415 [facility] [place] [address] Vane Zarate Psychiatrist Psychiatry 11/28/12 documented as of this encounter
--- OUTSIDE RECORDS SUMMARY | 2022-03-14 18:44 | XMS_ITS | Encounter Summary ---
:1970 Author Organization [facility] Address [address] [place] [address] Care Team Providers Name Role Phone Gagandeep Hinojosa MD Primary Care Provider Reason for Visit Reason Comments COUGH Encounter Details Date Type Department Care Team Description 04/04/2017 Nurse Triage [facility] Gagandeep Hinojosa MD COUGH 1415 [facility] . 1415 [place] [address] [place] [address] [phone] (Wo rk) Social History Tobacco Use Types [...] (SAME) Protocols used: INFECTION ON ANTIBIOTIC FOLLOW-UP [id number] Patient calling and transferred to [facility] via ER line. States he was seen at [facility] over the weekend for his cough [...] 04/05/2017 3:30 PM Gagandeep Hinojosa MD [facility] MANUEL DER TRIMMER documented in this encounter Plan of Treatment Not on filedocumented as of this encounter Visit Diagnoses Not on filedocumented in this encounter Care Teams Spinner Box Relationship Specialty Start Date End Date Gagandeep Hinojosa MD PCP - General 05/17/[address] [place] [address] [place] Gerber [address] Vane Zarate Psychiatrist Psychiatry 03/22/12 documented as of this encounter
--- OUTSIDE RECORDS SUMMARY | 2022-03-14 18:45 | XMS_ITS | Encounter Summary ---
:1970 Author Organization [facility] Address [address] [place] [address] Care Team Providers Name Role Phone Gagandeep Hinojosa MD Primary Care Provider Reason for Visit Reason Comments MEDICATION THERAPY MANAGEMENT Encounter Details Date Type Department Care Team Description 04/14/2016 Telephone [place] Medication Maddy Crane, MEDICA TION THERAPY Management PharmD MANAGEMENT 1415 [facility] [address] [place] [address] [facility] [phone] [place], [place] [id number] (Wo rk) Social History Tobacco Use Types [...] ongoing support through is Quit Plan assistant basketball coach and would like to occasionally call me as well. He only has a 2 week supply ofnicotine 21mg patches at home and is requesting a refill today. Plan: 1) Quit Date: Ninfa Bourne - April 17, 2016 2) Nicotine 21mg patch and Nicotine 4mg gum Will follow-up as needed. Maddy Crane, Pharm.D. Medication Management Pharmacist [place] Medication Management OW AND DOOR INSTALLER documented in this encounter Plan of Treatment Not on filedocumented as of this encounter Visit Diagnoses Diagnosis Tobacco use disorder (HRC) - Primary Tobacco use disorder documented in this encounter Care Teams Certified Medical Technician Relationship Specialty Start Date End Date Gagandeep Hinojosa MD PCP - General 05/17/12 1415 [facility] [address] Vane Zarate Psychiatrist Psychiatry 03/22/12 documented as of this encounter
--- OUTSIDE RECORDS SUMMARY | 2022-03-14 18:45 | XMS_ITS | Encounter Summary ---
:1970 Author Organization [facility] Address [address] [place] [address] Care Team Providers Name Role Phone Gagandeep Hinojosa MD Primary Care Provider Reason for Visit Reason Onset Date Comments [facility] Phone Visit 02/24/2016 Encounter Details Date Type Department Care Team Description 02/24/2016 Care Coord Phone Judy Luke R N [facility] Phone Visit Medicine 1415 [facility] 1415 [facility] [place] [address] [place] [address] [phone] Social History Tobacco Use Types Packs/Day Years [...] Pittman RN - 02/26/2016 1:59 PM CDT Water Resource Engineering Specialist - Phone Call Contact with: Rustam [...] Rustam states she is shy around medical insurance claims processor and wouldn't feel comfortable talking to me. [...] of Tresiba U200 received and entered into [employer]. Insulin is stored in the Injection Room [...] Pittman RN - 02/24/2016 2:42 PM CDT Water Resource Engineering Specialist - Phone Call Contact with: Rustam [...] insulin. Shared plan: Left message for Enmanuel Nordisk Rep to request samples of Tresiba. Rustam [...] disorder documented in this encounter Care Teams Food Trades Assistants Relationship Specialty Start Date End Date Gagandeep Hinojosa MD PCP - General 05/17/12 [address] [place] [address] Vane Zarate Psychiatrist Psychiatry 03/22/12 documented as of this encounter
--- OUTSIDE RECORDS SUMMARY | 2022-03-14 18:45 | XMS_ITS | Encounter Summary ---
:1970 Author Organization [facility] Address [address] [facility] [place] [address] Care Team Providers Name Role Phone Gagandeep Hinojosa MD Primary Care Provider Reason for Visit Reason Comments Diabetes Encounter Details Date Type Department Care Team Description 06/09/2016 Office Visit [facility]ep [facility] 2 diabetes mellitus without complication, with long-term current use of insulin (HRC) (Primary Dx); Romario Rubio MD Atherosclerosis of coronary artery, dequan na presence unspecified, unspecified vessel or lesion type, unspecified whether chickaloon or transplanted heart (HRC); [address] [place] [address] Tobacco abuse; [address] Essential hypertension; [place] [address] [place] ASHD (arteriosclerotic heart disease); [phone] Hyperlipidemia LDL goal < 70; [phone] Flatulence; (Work) Uncontrolled type 2 diabetes mellitus wi th diabetic polyneuropathy, with long- term current use of insulin (HRC) [E11.42, Z79.4, E11.65]; [phone] Uncontrolled ty pe 2 diabetes mellitus with other ophthalmic complication, with long-term current use of insulin (HRC) [E11.39, Z79.4, E11.65]; (Fax) [facility] curre nt use of insulin (HRC); Type [...] Comments Blood Pressure 154/84 06/09/2016 9:53 AM PRACTICAL NURSE Pulse 106 06/09/2016 9:53 AM PRACTICAL NURSE Temperature - - Respiratory Rate - - Oxygen Saturation - - Inhaled Oxygen Concentration - - Weight 102.5 kg (226 lb) 06/09/2016 9:45 AM PRACTICAL NURSE Height - - Body Mass Index 32.43 [...] without complication, with long-term current use of insulin([facility]) E11.65 divalproex (DEPAKOTE) 500 MG enteric coated tablet Z79.4 Insulin Syringe-Needle U-100 (INSULIN SYRINGE 31G X 5/16) 31G X 5/16 1 ML metFORMIN (GLUCOPHAGE) 500 MG tablet 2. Atherosclerosis of coronary artery, angina presence unspecified, unspecified vessel or lesion type, unspecified whether chickaloon or transplanted heart ([facility]) I25.10 lisinopril (ZESTRIL) 10 MG tablet 3. Tobacco abuse ([facility]) Z72.0 4. Essential hypertension ([facility]) I10 lisinopril (ZESTRIL) 10 MG tablet Electrolyte Panel Creatinine / GFR 5. ASHD (arteriosclerotic heart disease) ([facility]) I25.10 atorvastatin (LIPITOR) 80 MG tablet [...] [E11.39, Z79.4, E11.65] E11.39 Z79.4 E11.65 10. [facility] current use of insulin (HRC) Z79.4 11. Type 2 diabetes mellitus with diabetic polyneuropathy, with long-term current use of insulin (HRC) [E11.42, Z79.4] E11.42 Z79.4 12. Hyperlipidemia, unspecified hyperlipidemia type (HRC) [E78.5] E78.5 13. Tobacco use disorder (HRC) F17.200 aggressively encouraged to stop smoking PLAN: 1. He will again need with landcare facilitator to discuss his insulin dosing. He may [...] UMAR: 3 months Aspirin: yes Tobacco: yes TICAL NURSE documented in this encounter Plan of Treatment Not on filedocumented as of this encounter Results (ABNORMAL) Microalb/Creat Ratio (09/07/2016 10:26 AM CDT) [facility] Method Time Signature Microalbumin 102.5 mg/L PN SOFT Urine U Creat Random 263 mg/dL PN SOFT Microalbumin/Crea 39.0 (H) 0.0 - PN SOFT tinine Ratio 30.0 Specimen Anatomical Collection Method Collection Time Receive d Time (Source) Location / / Volume Laterality Urine specimen 09/07/2016 10:26 7 2:29 (specimen) AM CDT PM CDT Narrative PN SOFT - 09/07/2016 3:26 PM CDT Performed at [facility], [address] [place] [address] CLIA number [id number] Gagandeep Hinojosa MD LAB_1 Performing Organization Address City/State/ZIP Code Phon e Number PN SOFT [address] [place] [address] [phone] (ABNORMAL) Creatinine / GFR (09/07/2016 10:25 AM [...] - 09/07/2016 3:04 PM CDT Performed at [facility], [address] [place] [address] CLIA number [id number] Gagandeep Hinojosa MD LAB_1 Performing Organization Address City/[facility]/ZIP Code Phon e Number PN SOFT [address] [place] [address] (ABNORMAL) Electrolyte Panel (09/07/2016 10:25 AM CDT) [...] - 09/07/2016 3:04 PM CDT Performed at [facility], [place] [facility] [address] [place] [id number] CLIA number [id number] Gagandeep Hinojosa MD LAB_1 Performing Organization Address [facility] Phon e Number PN SOFT [address] [place] [address] (ABNORMAL) Lipid Panel and Direct LDL(If Needed) (09/07/2016 10:25 AM CDT) [facility] [employer]her[employer]orX Method Time Signature Cholesterol 128 0 - [...] - 09/07/2016 3:04 PM CDT Performed at [facility], [address] [place] [address] CLIA number [id number] Gagandeep Hinojosa MD LAB_1 Performing Organization Address [facility] Phon e Number PN SOFT [address] [place] [address] (ABNORMAL) POCT Glycosylated Hemoglobin (HB A1C) (09/07/2016 10:25 AM CDT) [facility] Method Time Signature Glycosolated HGB 8.3 (H) [...] - 09/07/2016 10:35 AM CDT Performed at [facility], [facility] [place] [address] CLIA number [id number] Gagandeep Hinojosa MD LAB_1 Performing Organization Address [facility] Phon e Number PN SOFT [address] [place] [address] documented in this encounter Visit Diagnoses Diagnosis [...] Coronary atherosclerosis of unspecified type of vessel, chickaloon or graft Hyperlipidemia, unspecified hyperlipidem ia type (HRC) [E78.5] Flatulence Flatulence, eructation, and gas pain Uncontrolled type 2 diabetes mellitus wi th diabetic polyneuropathy, with long-term current use of insulin (HRC) [E11.42, Z7 9.4, E11.65] Uncontrolled type 2 diabetes mellitus wi th other ophthalmic complication, with long-term current use of insulin (HRC) [ E11.39, Z79.4, E11.65] [facility] current use of insulin (HRC) Encounter for [...] hypertension documented in this encounter Care Teams Frame Fixer Relationship Specialty Start Date End Date Gagandeep Hinojosa MD PCP - General 05/17/[address] [place], [place] [address] [address] Vane Zarate Psychiatrsamantha Psychiatry 03/22/12 documented as of this encounter
--- OUTSIDE RECORDS SUMMARY | 2022-03-14 18:45 | XMS_ITS | Encounter Summary ---
:1970 Author Organization [facility] Address [address] [place] [address] Care Team Providers Name Role Phone Gagandeep Hinojosa MD Primary Care Provider Reason for Visit Reason Onset Date Comments [facility] Phone Visit 06/22/2016 Encounter Details Date Type Department Care Team Description 06/22/2016 Care Coord Phone [facility] Deborah Rodrigues, [facility] Phone Visit [facility] 1415 [facility] . [address] [place] [address] [place] [address] [phone] Social History Tobacco Use Types Packs/Day Years Used Date Smoking Tobacco: Every Day Cigarettes 0 25 Smokeless Tobacco: Former Qu it: 10/25/2012 Comments: Smoking History Packs/day: Alcohol Use Standard Drinks/Week Comments No 0 (1 standard drink = 0.6 oz pure Alcoho lic Drinks/day: Amount:0; alcohol) Freq:Never; Sex Assigned at Date Recorded Not on file documented as of this encounter Progress Notes Deborah Rodrigues, [facility] - 06/22/2016 2:30 PM CST Biomedical Engineering Internship - Phone Call Contact with: Rustam Reason [...] concerns at this time. Shared plan: -[facility] phone appointment 06/24. Pt verbalized understanding and agreed with plan of care and follow up. TE INPATIENT CODER Deborah Rodrigues LICSW - 06/22/2016 12:00 PM CST Biomedical Engineering Internship - Phone Call Contact with: Rustam Reason [...] that he was going to take an [id number] sleeping medication, as his doctor had previously told him this may be beneficial. Rustam thanked me for checking in with him, and stated he did not need anything further at this time. Again he denied any thoughts of suicide and was able to identify the appropriate time to contact the crisis line if he needed to. Shared plan: -[facility] phone follow-up 06/29. Pt verbalized understanding and agreed with plan of care and follow up. TE INPATIENT CODER Deborah Rodrigues LICSW - 06/22/2016 10:30 AM CST Biomedical Engineering Internship - Phone Call Contact with: Rustam Reason [...] concerns at this time. Shared plan: -[facility] phone follow-up 06/29. Pt verbalized understanding and agreed with plan of care and follow up. TE INPATIENT CODER Deborah Rodrigues LICSW - 06/22/2016 10:00 AM CST Contacted Rustam, per request from RN Biomedical Engineering Internship, Judy Pittman. Left a [place]. [place] [phone] if he calls the clinic. TE INPATIENT CODER documented in this encounter Plan of Treatment Not on filedocumented as of this encounter Visit Diagnoses Diagnosis Health penitentiary, active care coordinati on - Primary documented in this encounter Care Teams Deputy Commissioner Relationship Specialty Start Date End Date Gagandeep Hinojosa MD PCP - General 05/17/12 1415 [facility] [place] [address] Vane aZrate Psychiatrist Psychiatry 03/22/12 documented as of this encounter
--- OUTSIDE RECORDS SUMMARY | 2022-03-14 18:45 | XMS_ITS | Encounter Summary ---
:1970 Author Organization [facility] Address [address] [facility] [place] [address] Care Team Providers Name Role Phone Gagandeep Hinojosa MD Primary Care Provider Reason for Visit Reason Comments MEDICATION THERAPY MANAGEMENT Nicotine Dependence Encounter Details Date Type Department Care Team Description 03/05/2016 Office Visit [place] Medication Maddy Crane, Tobacc o abuse Management PharmD (Primary Dx) 1415 [facility] . [address] [facility] [place] [address] [facility] [phone] [place] [address] (Wo rk) Social History Tobacco [...] keep yourself occupied for that time! Play CanaryHop, phone games, going for walks, word searches, chew [...] life! Any questions or concerns, please call [phone] or contact me via [employer]. Maddy Crane, [facility] Medication Management Pharmacist Changes Your Body Goes [...] morning Keep cigarettes far away from bed [place] teeth and rinse with mouthwash as soon [...] something else in your mouth After Meals [place] teeth or rinse with mouthwash Chew sugarless [...] disappear after 2-4 weeks. Tobacco Cessation Resources [employer] ?? 2 weeks of nicotine replacement gum, [...] counselor ?? Patient education materials APPS for XOG phones ?? SmokeFree ?? MyQuit Director Of Sustainability ([facility]) ?? Stop Smoking - Mindfulness Meditation ?? Quit Pal ([facility] [place]) ?? My QuitBuddy ?? My Last Cigarette NING MULE OPERATOR documented in this encounter Progress Notes Maddy Crane, PharmD - 03/05/2016 1:17 PM CST Timur Krishnamurthy is a 46 y.o. male coming in for an initial visit for smoking cessation. He was referred to me from Judy Pittman, RNCC. His primary care provider is Gagandeep Hinojosa MD. Comments/concerns are: smoking cessation. Current medication list is in Epic and was reviewed. Allergies Allergen Reactions ??? [...] and nicotine 4mg gum Coping mechanisms: play [employer]r, phone games, go for a walk, word search, chew on carrots I offer these suggestions with the understanding that I do not completely understand the complexity of his medical conditions. Will follow up 1 week after quit date, patient would prefer to call me to check in. Time spent with patient is 30 minutes. Maddy Crane [facility] Medication Management Pharmacist Yaritza Medication Management Med Mgmt Smartform completed: yes Follow-up Med Mgmt appointment scheduled: no Added to Care Team: yes [facility] Letter required: No Completed: No NING MULE OPERATOR documented in this encounter Plan of Treatment Not on filedocumented as of this encounter Visit Diagnoses Diagnosis Tobacco abuse (HRC) - Primary Tobacco use disorder documented in this encounter Care Teams Radiology Therapist Relationship Specialty Start Date End Date Gagandeep iHnojosa MD PCP - General 05/17/12 [address] [place] [address] Vane Zarate Psychiatrist Psychiatry 03/22/12 documented as of this encounter
--- OUTSIDE RECORDS SUMMARY | 2022-03-14 18:45 | XMS_ITS | Encounter Summary ---
:1970 Author Organization [facility] Address [address] [place] [address] Care Team Providers Name Role Phone Gagandeep Hinojosa MD Primary Care Provider Reason for Visit Reason Onset Date Comments [facility] Phone Visit 07/02/2016 Encounter Details Date Type Department Care Team Description 07/02/2016 Care Coord Phone [facility] Deborah Rodrigues, [facility] Phone [facility] 14[address] [facility] . [address] [place] [address] [place] [address] [phone] Social History Tobacco Use Types Packs/Day Years [...] encounter Progress Notes Deborah Rodrigues, [facility] - 07/02/2016 2:30 PM CST Rent Collector - Phone Call Contact with: Rustam Reason [...] one weekto check-in. Shared plan: -[facility] phone follow-up one week. Pt verbalized understanding and agreed with plan of care and follow up. ENTICE documented in this encounter Plan of Treatment Not on filedocumented as of this encounter Visit Diagnoses Diagnosis Health ch[facility], active care coordinati on - Primary documented in this encounter Care Teams Envelope Sealer Operator Relationship Specialty Start Date End Date Gagandeep Hinojosa MD PCP - General 05/17/12 [address] [place] [address] Vane Zarate Psychiatrist Psychiatry 03/22/12 documented as of this encounter
--- OUTSIDE RECORDS SUMMARY | 2022-03-14 18:45 | XMS_ITS | Encounter Summary ---
:1970 [facility] Address [address] [place] [address] Care Team Providers Name Role Phone Gagandeep Hinojosa MD Primary Care Provider Reason for Visit Reason Onset Date Comments [facility] Phone Visit 07/05/2016 Encounter Details Date Type Department Care Team Description 07/05/2016 Care Coord Phone [facility] Deborah Rodrigues, [facility] Phone Visit [facility] 1415 [facility] . [address] [place] [address] [place] [address] [phone] Social History Tobacco Use Types Packs/Day Years [...] this encounter Progress Notes Deborah Rodrigues, [facility] - 07/05/2016 3:30 PM CDT Tin Can Laborer - Phone Call Contact with: Rustam Reason [...] he has a Psychiatrist, therapist and RN Tin Can Laborer that check-in with himregularly. Rustam agreed to only call once a week, unless he felt it was an emergency. Rustam agreed to this plan and denied any other concerns at this time. Shared plan: -[facility] phone follow-up in one week. Pt verbalized understanding and agreed with plan of care and follow up. documented in this encounter Plan of Treatment Not on filedocumented as of this encounter Visit Diagnoses Diagnosis Health long term, active care coordinati on - Primary documented in this encounter Care Teams Sql Server Bi Developer Relationship Specialty Start Date End Date Gagandeep Hinojosa MD PCP - General 05/17/12 [facility] [place] [address] Vane Zarate Psychiatrist Psychiatry 03/22/12 documented as of this encounter
--- OUTSIDE RECORDS SUMMARY | 2022-03-14 18:45 | XMS_ITS | Encounter Summary ---
:1970 Author Organization [facility] Address [address] [place] [address] Care Team Providers Name Role Phone Gagandeep Hinojosa MD Primary Care Provider Reason for Visit Reason Onset Date Comments Nicotine Dependence 03/12/2016 Encounter Details Date Type Department Care Team Description 03/12/2016 Telephone [place] Medication Maddy Crane, PharmD Nicotine Dependence Management [facility] [address] [place] [address] [place], [place] [phone] [address] (Wo rk) Social History Tobacco Use [...] today. He has been working with a lacrosse coach through Quit Plan as well and finds the support from multiple sources very helpful. He would like to continue checking in with me weekly by telephone. Maddy Crane, Pharm.D. Medication Management Pharmacist [place] Medication Management L ENGINEER documented in this encounter Plan of Treatment Not on filedocumented as of this encounter Visit Diagnoses Not on filedocumented in this encounter Care Teams Deicer Repairer Electric Relationship Specialty Start Date End Date Gagandeep Hinojosa MD PCP - General 05/17/12 1415 [facility] [place] [address] Vaen Zarate Psychiatrist Psychiatry 03/22/12 documented as of this encounter
--- OUTSIDE RECORDS SUMMARY | 2022-03-14 18:45 | XMS_ITS | Encounter Summary ---
:1970 Author Organization [facility] Address [address] [place] [address] Care Team Providers Name Role Phone Gagandeep Hinojosa MD Primary Care Provider Reason for Visit Reason Onset Date Comments [facility] Phone Visit 06/17/2016 Encounter Details Date Type Department Care Team Description 06/17/2016 Care Coord Phone Judy Luke R N [facility] Phone Visit Medicine 1415 [facility] 1415 [facility] [place] [address] [place] [address] [phone] Social History Tobacco Use Types Packs/Day Years [...] RN - 06/17/2016 9:31 AM CST RN Process Inspector - Diabetes Follow-Up Current diabetes medication regimen: [...] current insulin regimen. Plans to go to [facility] and pursue inpatient admission for mental health. Phone follow up to review DM options once mental health is stable. Call if sx of hypoglycemia or glucose readings < 70 mg/dL. Rustam verbalized understanding and agreed with plan of care and follow up. RMEDIATE ACCOUNTANT documented in this encounter Plan of Treatment Not on filedocumented as of this encounter Visit Diagnoses Diagnosis Health intermediate, active care coordinati on - Primary Bipolar I disorder (HRC) Bipolar I disorder, most recent episode (or current) unspecified Uncontrolled type 2 diabetes mellitus wi th hyperglycemia, with long-term current use of insulin (HRC) documented in this encounter Care Teams Driver/Sales Workers Relationship Specialty Start Date End Date Gagandeep Hinojosa MD PCP - General 05/17/12 [address] [place] [address] Vane Zarate Psychiatrsamantha Psychiatry 03/22/12 documented as of this encounter
--- OUTSIDE RECORDS SUMMARY | 2022-03-14 18:45 | XMS_ITS | Encounter Summary ---
:1970 Author Organization [facility] Address [address] [place] [address] Care Team Providers Name Role Phone Gagandeep Hinojosa MD Primary Care Provider Reason for Visit Reason Onset Date Comments [facility] Phone Visit 06/24/2016 Encounter Details Date Type Department Care Team Description 06/24/2016 Care Coord Phone [facility] Deborah Rodrigues, [facility] Phone Visit [facility] 1415 [facility] . [address] [place] [address] [place] [address] [phone] Social History Tobacco Use Types Packs/Day Years [...] encounter Progress Notes Deborah Rodrigues, [facility] - 06/24/2016 3:00 PM CST Or Manager - Phone Call Contact with: Rustam Reason [...] on Tuesday and would still like an [facility] phone call on Tuesday. Denied any other concerns at this time and will call if he needs anything. Shared plan: -[facility] phone follow-up 06/29. Pt verbalized understanding and agreed with plan of care and follow up. INE PRECISION ETCHER documented in this encounter Plan of Treatment Not on filedocumented as of this encounter Visit Diagnoses Diagnosis Health chcf, active care coordinati on - Primary documented in this encounter Care Teams Lawn Technician Relationship Specialty Start Date End Date Gagandeep Hinojosa MD PCP - General 05/17/[address] [place], [place] [address] [address] Vane Zarate Psychiatrist Psychiatry 03/22/12 documented as of this encounter
--- OUTSIDE RECORDS SUMMARY | 2022-03-14 18:45 | XMS_ITS | Encounter Summary ---
:1970 Author Organization [facility] Address [address] [place] [address] Care Team Providers Name Role Phone Gagandeep Hinojosa MD Primary Care Provider Reason for Visit Reason Comments Follow Up ER [facility] 07-08-16 Hypoglycemia Encounter Details Date Type Department Care Team Description 07/09/2016 Office Visit Gagandeep [facility] emia (Primary Dx); Romario Rubio MD Bipolar I disorder ([facility]); [address] 1415 [facility] Uncontrolled type 2 diabetes mellitus without complication, with long-term current use of insulin ([facility]) [place] [address] [address] [phone] [place] VIGIL [phone] Social History Tobacco Use Types [...] AM CDT ICD-10-CM 1. Hypoglycemia ([facility]) E16.2 2. Bipolar I disorder (HRC) F31.9 3. Uncontrolled type 2 diabetes mellitus without complication, with long-term current use of insulin(HR) E11.65 Z79.4 CHIEF COMPLAINT: Chief Complaint Patient presents with ??? Follow Up ER [facility] 07-08-16 Hypoglycemia SUBJECTIVE : Timur Krishnamurthy [...] Date Noted ??? Tobacco abuse ([facility]) 02/24/2016 ??? Tinea versicolor 07/18/2015 ??? Diabetic eye exam ([facility]) 12/12/2013 Overview Note: Eye exam done at [facility] on 12/12/13. Mild diabetic retinopathy in right eye. ??? Tobacco use disorder ([facility]) 10/26/2012 ??? ACS (acute coronary syndrome) ([facility]) 10/25/2012 ??? Anemia 05/02/2012 ??? Health intermediate, active care coordination 03/22/2012 Overview Note: Freight Car Repairer: JOSETTE Yip [phone] Care coordination focus: T2DM, financial resources Living situation: lives with spouse Important notes: SSDI, significant insulin resistance, uses Relion insulin, commonly reaches Medicare Coverage Gap See care plan under Chart Review > Misc Reports > AMB [facility] CARE PLAN REPORT ??? Microalbuminuria 02/04/2012 ??? HI, old ([facility]) 09/16/2011 ??? History of PTCA 09/16/2011 ??? Obesity, Class I, BMI 30-34.9 ([facility]) 09/16/2011 Overview Note: Body mass index is 31.16 kg/(m^2). ??? Hyperlipidemia with target LDL less than 70 ([facility]) 06/08/2011 ??? ASHD (arteriosclerotic heart disease) ([facility]) 05/04/2011 ??? Erectile dysfunction 01/22/2011 Overview Note: side effect Risperdal ??? Type 2 diabetes mellitus, uncontrolled ([facility]) 12/11/2010 ??? Dermatophytosis of body 09/04/2010 Class: Historical ??? Coronary atherosclerosis ([facility]) 12/22/2009 Overview Note: LW Modifier: mod RCA, negative nuclear stress test ??? Nonspecific abnormal results of liver function study 12/22/2009 ??? Bipolar I disorder ([facility]) 09/15/2005 Overview Note: LW Onset: FAMILY HISTORY [...] insulin documented in this encounter Care Teams Patient Support Specialist Relationship Specialty Start Date End Date Gagandeep Hinojosa MD PCP - General 05/17/[address] [place] [address] Vane Zarate Psychiatrist Psychiatry 03/22/12 documented as of this encounter
--- OUTSIDE RECORDS SUMMARY | 2022-03-14 18:45 | XMS_ITS | Encounter Summary ---
:1970 Author Organization [facility] Address [address] [address] Care Team Providers Name Role Phone Gagandeep Hinojosa MD Primary Care Provider Reason for Visit Reason Onset Date Comments [facility] Phone Visit 06/23/2016 Encounter Details Date Type Department Care Team Description 06/23/2016 Care Coord Phone Judy Luke R N [facility] Phone Visit Medicine 1415 [facility] 1415 [facility] [place] [address] [place] [address] [phone] Social History Tobacco Use Types Packs/Day Years [...] RN - 06/23/2016 10:36 AM CST RN Apprenticeship Representative - Diabetes Follow-Up Current diabetes medication regimen: [...] with plan of care and follow up. TRIC TRIPPER MACHINE OPERATOR documented in this encounter Plan of Treatment Not on filedocumented as of this encounter Visit Diagnoses Diagnosis Health ch[facility], active care coordinati on - Primary Uncontrolled type 2 diabetes mellitus wi th hyperglycemia, with long-term current use of insulin (HRC) Bipolar I disorder (HRC) Bipolar I disorder, most recent episode (or current) unspecified documented in this encounter Care Teams Wood Sawyer Relationship Specialty Start Date End Date Gagandeep Hinojosa MD PCP - General 05/17/12 1415 [facility] [place] Gerber [address] Vane Zarate Psychiatrist Psychiatry 03/22/12 documented as of this encounter
--- OUTSIDE RECORDS SUMMARY | 2022-03-14 18:45 | XMS_ITS | Encounter Summary ---
:1970 Author Organization [facility] Address [address] [place] [address] Care Team Providers Name Role Phone Gagandeep Hinojosa MD Primary Care Provider Reason for Visit Reason Onset Date Comments [facility] Phone Visit 06/24/2016 Encounter Details Date Type Department Care Team Description 06/24/2016 Care Coord Phone Judy Luke R N [facility] Phone Visit Medicine 1415 [facility] [address] [facility] [address] [place] [address] [phone] Social History Tobacco Use Types Packs/Day Years [...] RN - 06/24/2016 1:13 PM CST RN Wet Process Miller Head Assistant - Diabetes Follow-Up Current diabetes medication regimen: [...] with plan of care and follow up. RACT LEAD documented in this encounter Plan of Treatment Not on filedocumented as of this encounter Visit Diagnoses Diagnosis Health prison, active care coordinati on - Primary Type 2 diabetes mellitus with hyperglyce meg, with long-term current use of insulin (HRC) Tobacco abuse ([facility]) Tobacco use disorder Bipolar I disorder (HRC) Bipolar I disorder, most recent episode (or current) unspecified documented in this encounter Care Teams Home Lighting Adviser Relationship Specialty Start Date End Date Gagandeep Hinojosa MD PCP - General 1/23/13 1415 [facility] [place] [address] Vane Zarate Psychiatrist Psychiatry 03/22/12 documented as of this encounter
--- OUTSIDE RECORDS SUMMARY | 2022-03-14 18:45 | XMS_ITS | Encounter Summary ---
:1970 Author Organization [facility] Address [address] [place] [address] Care Team Providers Name Role Phone Gagandeep Hinojosa MD Primary Care Provider Reason for Visit Reason Onset Date Comments [facility] Phone Visit 06/30/2016 Encounter Details Date Type Department Care Team Description 06/30/2016 Care Coord Phone [facility] Deborah Rodrigues, [facility] Phone Visit [facility] 1415 [facility] . 1415 [place] [address] [place] [address] [phone] Social History Tobacco Use Types Packs/Day Years [...] Deborah Rodrigues, [facility] - 06/30/2016 3:45 PM CST Oil House Attendant - Phone Call Contact with: Julius Reason [...] admitted. They did set him up with hebert andres appointment, which he is planning on attending [...] will call in one week. Shared plan: -[facility] phone follow-up in one week. Pt verbalized understanding and agreed with plan of care and follow up. FORCED CONCRETE INSPECTOR documented in this encounter Plan of Treatment Not on filedocumented as of this encounter Visit Diagnoses Diagnosis Health [facility], active care coordinati on - Primary documented in this encounter Care Teams Rail Project Engineer Relationship Specialty Start Date End Date Gagandeep Hinojosa MD PCP - General 05/17/12 [facility]5 [place] [address] Vane Zarate Psychiatrist Psychiatry 03/22/12 documented as of this encounter
--- OUTSIDE RECORDS SUMMARY | 2022-03-14 18:45 | XMS_ITS | Encounter Summary ---
:1970 Author Organization [facility] Address [address] [place] [address] Care Team Providers Name Role Phone Gagandeep Hinojosa MD Primary Care Provider Reason for Visit Reason Onset Date Comments Medication Request 06/09/2016 Encounter Details Date Type Department Care Team Description 06/09/2016 [facility] Medication Request 1415 [facility] . 1415 [place] [address] [place] [address] [phone] (Wo rk) Social History Tobacco Use Types [...] Test Strips ?? One Touch Delica Lancets RITY POLICE OFFICER Piper Mederos - 06/09/2016 10:58 AM CST Pt calling back with diabetes supply information. -One Touch Ultra II Meter -One Touch Ultra Touch Test Strips -One Touch Delica Lancets RITY POLICE OFFICER documented in this encounter Plan of Treatment Not on filedocumented as of this encounter Visit Diagnoses Diagnosis Uncontrolled type 2 diabetes mellitus wi th diabetic polyneuropathy, with long-term current use of insulin - Primary documented in this encounter Care Teams Locomotive Supervisor Relationship Specialty Start Date End Date Gagandeep Hinojosa MD PCP - General 05/17/12 [facility] [address] Vane Zarate Psychiatrist Psychiatry 03/22/12 documented as of this encounter
--- OUTSIDE RECORDS SUMMARY | 2022-03-14 18:45 | XMS_ITS | Encounter Summary ---
:1970 Author Organization [facility] Address [address] [place] [address] Care Team Providers Name Role Phone Gagandeep Michaud MD Primary Care Provider Reason for Visit Reason Onset Date Comments Medication Request 04/02/2016 divalproex (DEPAKOTE ) 500 MG enteric coated tablet Encounter Details Date Type Department Care Team Description 04/02/2016 Telephone [facility] Gagandeep Michaud, Medic ation Request Medicine (divalproex (DEPAKOTE) [address] 500 MG enteric coated [place] Vigil [address] [place] VIGIL [address] tablet) [phone] (Wo rk) Social History Tobacco Use Types [...] today, request sent to PCP to address ON JAVA DEVELOPER Cristal Vilchis - 04/02/2016 2:00 PM CST Pt is requesting to discuss if Dr. Michaud would be willing to refill medication. Pt states he willbe out of medication on 04/03/16. ON JAVA DEVELOPER Interface, Out Surescripts Prov Query - 04/02/2016 [...] Acid (serum): Taken on 11/04/2015 Powered by Maraquia, Reference: [id number], 04/02/2016 12:15:01 PM PYTHON JAVA DEVELOPER, Pool: MANUEL LANDAILL ([id number]) ON JAVA DEVELOPER Clair Simpson - 04/02/2016 12:13 PM CST Pt is out of Rx, and doctor out for the week ON JAVA DEVELOPER documented in this encounter Plan of Treatment Not on filedocumented as of this encounter Visit Diagnoses Not on filedocumented in this encounter Care Teams Trading Floor Operator Relationship Specialty Start Date End Date Gagandeep Michaud MD PCP - General 05/17/[address] [place], [place] [address]K[place] Rodriguez [address] Vane Zarate Psychiatrist Psychiatry 03/22/12 documented as of this encounter
--- OUTSIDE RECORDS SUMMARY | 2022-03-14 18:45 | XMS_ITS | Encounter Summary ---
:1970 Author Organization [facility] Address [address] [place] [address] Care Team Providers Name Role Phone Gagandeep Hinojosa MD Primary Care Provider Reason for Visit Reason Onset Date Comments [facility] Phone Visit 06/22/2016 Encounter Details Date Type Department Care Team Description 06/22/2016 Care Coord Phone Judy Luke R N [facility] Phone Visit Medicine 1415 [facility] 1415 [facility] [place] [address] [place] [address] [phone] Social History Tobacco Use Types Packs/Day Years [...] RN - 06/22/2016 10:32 AM CST RN Exceptional Children Teacher Assistant - Diabetes Follow-Up Current diabetes medication [...] dx Bipolar Disorder. He has called the [facility] Crisis line and Lesly Rodrigues [facility] Exceptional Children Teacher Assistant about increased anxiety today. I reviewed the [...] plan of care and follow up. E CLERK CHECKER documented in this encounter Plan of Treatment Not on filedocumented as of this encounter Visit Diagnoses Diagnosis Health fdc, active care coordinati on - Primary Bipolar I disorder (HRC) Bipolar I disorder, most recent episode (or current) unspecified documented in this encounter Care Teams Asphalt Dauber Relationship Specialty Start Date End Date Gagandeep Hinojosa MD PCP - General 05/17/12 1415 [place] Hernandez [address] Vane Zarate Psychiatrist Psychiatry 03/22/12 documented as of this encounter
--- OUTSIDE RECORDS SUMMARY | 2022-03-14 18:45 | XMS_ITS | Encounter Summary ---
:1970 Author Organization [facility] Address [address] [place] [address] Care Team Providers Name Role Phone Gagandeep Hinojosa MD Primary Care Provider Reason for Visit Reason Onset Date Comments Medication Request 02/25/2016 Jaxson Muhammad Encounter Details Date Type Department Care Team Description 02/25/2016 Telephone [facility] Gagandeep Hinojosa, Medic ation Request Medicine (Jaxson Muhammad) 1415 [facility] . 1415 [place] [address] [place], [place] [address] (Wo rk) Social History Tobacco Use Types [...] MEDICATIONS? Comment: Med not covered Pharmacy Name: [facility] Fax# or Address: [phone] Clinician Name: Ashish Drug Name/Strength: Humulin R U100 insulin Sig: administer 76 units subcutaneously twice daily before meals Formulary Alternative: Novolin R Insurance Carrier: [facility] is requesting to change medication to [...] documented in this encounter Care Teams Equipment Processer Storage Relationship Specialty Start Date End Date Gagandeep Hinojosa MD PCP - General 05/17/12 1415 [facility] [place] [address] Vane Zarate Psychiatrist Psychiatry 03/22/12 documented as of this encounter
--- OUTSIDE RECORDS SUMMARY | 2022-03-14 18:45 | XMS_ITS | Encounter Summary ---
:1970 Author Organization [facility] Address [address] [place] [address] Care Team Providers Name Role Phone Gagandeep Hinojosa MD Primary Care Provider Reason for Visit Reason Onset Date Comments [facility] Phone Visit 07/01/2016 Encounter Details Date Type Department Care Team Description 07/01/2016 Care Coord Phone Judy Luke R N [facility] Phone Visit Medicine 1415 [facility] 1415 [facility] [place] [address] [place] [address] [phone] Social History Tobacco Use Types Packs/Day Years [...] RN - 07/01/2016 9:51 AM CST RN Finance Assistant - Diabetes Follow-Up Current diabetes medication [...] plan of care and follow up. AL SCIENCE PROFESSOR documented in this encounter Plan of Treatment Not on filedocumented as of this encounter Visit Diagnoses Diagnosis Health fpc, active care coordinati on - Primary Uncontrolled type 2 diabetes mellitus wi th hyperglycemia, with long-term current use of insulin (HRC) Bipolar I disorder (HRC) Bipolar I disorder, most recent episode (or current) unspecified documented in this encounter Care Teams Ski Base Trimmer Relationship Specialty Start Date End Date Gagandeep Hinojosa MD PCP - General 05/17/12 1415 [facility] [place] Gerber [address] Vane Zarate Psychiatrist Psychiatry 03/22/12 documented as of this encounter
--- OUTSIDE RECORDS SUMMARY | 2022-03-14 18:45 | XMS_ITS | Encounter Summary ---
:1970 Author Organization [facility] Address [address] [place] [address] Care Team Providers Name Role Phone Gagandeep Hinojosa MD Primary Care Provider Encounter Details Date Type Department Care Team Description 05/03/2016 Notes/Orders [facility] Gagandeep Hinojosa MD 1415 [facility] . 1415 [facility] [place] [address] [place] [address] [phone] (Wo rk) Social History Tobacco Use Types [...] on filedocumented in this encounter Care Teams Pallet Stone Inserter Relationship Specialty Start Date End Date Gagandeep Hinojosa MD PCP - General 05/17/12 1418 [facility] [place] [address] Vane Zarate Psychiatrsamantha Psychiatry 03/22/12 documented as of this encounter
--- OUTSIDE RECORDS SUMMARY | 2022-03-14 18:45 | XMS_ITS | Encounter Summary ---
:1970 Author Organization [facility] Address [address] [place] [address] Care Team Providers Name Role Phone Gagandeep Hinojosa MD Primary Care Provider Encounter Details Date Type Department Care Team Description 03/10/2016 Notes/Orders [facility] Gagandeep Hinojosa MD 1415 [facility] . [address] [facility] [place] [address] [place] [address] [phone] (Wo rk) Social History Tobacco Use Types [...] on filedocumented in this encounter Care Teams Analysis Specialist Relationship Specialty Start Date End Date Gagandeep Hinojosa MD PCP - General 05/17/[address] [facility] [place] [address] Vane Zarate Psychiatrsamantha Psychiatry 03/22/12 documented as of this encounter
--- OUTSIDE RECORDS SUMMARY | 2022-03-14 18:45 | XMS_ITS | Encounter Summary ---
:1970 Author Organization [facility] Address [address] [place] [address] Care Team Providers Name Role Phone Gagandeep Hinojosa MD Primary Care Provider Reason for Referral Consult/Transfer Care (Routine) - Closed Specialty Diagnoses / Procedures Referred By Contact Refer red To Contact Diagnoses Uncontrolled type 2 diabetes mellitus with hyperglycemia, with long-term current use of insulin (HRC) Gagandeep Hinojosa MD 1726 [facility] [place] [address] Referral ID Status Reason Start Date Expiration Date Visits Requ ested Visits Authorized [id number] Closed 06/21/2016 09/20/2017 1 1 Scheduling Instructions Your provider has recommended an appoint ment with [facility]. You may call [phone] to schedule your a ppointment. If you do not schedule an appointment within the next 1 to 3 busin ess days, we will call you to help arrange your appointment. We suggest you call [employer] about your coverage and benefits for this appointme nt. NG ROOM OPERATOR Reason for Visit Reason Onset Date Comments [facility] Phone Visit 06/21/2016 Encounter Details Date Type Department Care Team Description 06/21/2016 Care Coord Phone Judy Luke R N [facility] Phone Visit Medicine 1415 [facility] 1415 [facility] . [place]IG[place] [address] [place] Vigil [address] [phone] Social History Tobacco Use Types Packs/Day Years [...] RN - 06/21/2016 10:40 AM CST RN Automation Operator - Diabetes Follow-Up Current diabetes medication [...] of hypoglycemia. He reports he went to [facility] for evaluation of his dx Bipolar Disorder [...] calm him, also offering to have our Framing Consultant, Lesly Rodrigues, call later this week to [...] plan of care and follow up. NG ROOM OPERATOR documented in this encounter Plan of Treatment Scheduled Referrals Name Type Priority Associated Diagnoses Order [facility] Referral Routine Uncontrolled type 2 Ordered : 06/21/2016 Consult-Adults diabetes mellitus with hyperglycemia, with long-term current use of insulin (HRC) documented as of this encounter Visit Diagnoses Diagnosis Uncontrolled type 2 diabetes mellitus wi th hyperglycemia, with long-term current use of insulin (HRC) - Primary Health assisted, active care coordinati on documented in this encounter Care Teams Battery Tester Relationship Specialty Start Date End Date Gagandeep Hinojosa MD PCP - General 05/17/[address] [place] [address] Vane Zarate Psychiatrist Psychiatry 03/22/12 documented as of this encounter
--- OUTSIDE RECORDS SUMMARY | 2022-03-14 18:45 | XMS_ITS | Encounter Summary ---
:1970 Author Organization [facility] Address [address] [place] [address] Care Team Providers Name Role Phone Gagandeep Hinojosa MD Primary Care Provider Reason for Visit Reason Onset Date Comments Medication Request 04/02/2016 Encounter Details Date Type Department Care Team Description 04/02/2016 Telephone [facility] Gagandeep Hinojosa, Medication Request 1415 [facility] . [place] [address] 1415 [facility] [phone] K[place]NA VELAZQUEZ [address] (Wo rk) Social [...] week. Has one dose left for tomorrow. YTICS CONSULTANT Clair Simpson - 04/02/2016 12:14 PM CST See refill request YTICS CONSULTANT documented in this encounter Plan of Treatment Not on filedocumented as of this encounter Visit Diagnoses Diagnosis Bipolar I disorder (HRC) - Primary Bipolar I disorder, most recent episode (or current) unspecified documented in this encounter Care Teams Grocery Checker Relationship Specialty Start Date End Date Gagandeep Hinojosa MD PCP - General 05/17/12 [facility]5 [facility] [place] Gerber [address] Vane Zarate Psychiatrist Psychiatry 03/22/12 documented as of this encounter
--- OUTSIDE RECORDS SUMMARY | 2022-03-14 18:45 | XMS_ITS | Encounter Summary ---
:1970 Author Organization [facility] Address [address] [place] [address] Care Team Providers Name Role Phone Gagandeep Hinojosa MD Primary Care Provider Reason for Visit Reason Onset Date Comments High Blood Sugar 07/07/2016 HYPOGLYCEMIA 07/08/2016 Encounter Details Date Type Department Care Team Description 07/07/2016 Nurse Triage [facility] Gagandeep Hinojosa High Blo od Sugar; Medicine MD Joanne HYPOGLYCEMIA [address] [place] [address] Ave [phone] [place] [id number] Social History Tobacco Use Types Packs/Day [...] PM CDT Protocol: DIABETES - LOW BLOOD [id number] Affirmative: Low blood sugar symptoms persist > [...] This was right before he got up. [place]ing dizzy but no sweating. Drank orange juice [...] on filedocumented in this encounter Care Teams Turnstile Collector Relationship Specialty Start Date End Date Gagandeep Hinojosa MD PCP - General 05/17/12 [facility]5 [facility] [place] Gerber [address] Vane Zarate Psychiatrsamantha Psychiatry 03/22/12 documented as of this encounter
--- OUTSIDE RECORDS SUMMARY | 2022-03-14 18:45 | XMS_ITS | Encounter Summary ---
:1970 Author Organization [facility] Address [address] [place] [address] Care Team Providers Name Role Phone Gagandeep Hinojosa MD Primary Care Provider Reason for Visit Reason Onset Date Comments DIABETES, MELLITUS 07/04/2016 Encounter Details Date Type Department Care Team Description 07/04/2016 Nurse Triage [facility] Gagandeep Hinojosa, DIABE TOMMY, MELLITUS Medicine 1415 [facility] . 1415 [place] [address] [place], [place] [phone] (Wo rk) Social History Tobacco Use Types [...] PM CDT Protocol: DIABETES - LOW BLOOD [id number] Affirmative: Low blood sugar prevention, questions about [...] on filedocumented in this encounter Care Teams Procedure Tech Relationship Specialty Start Date End Date Gagandeep Hinojosa MD PCP - General 05/17/[address] [place] [address] [place] Gerber [address] Vane Zarate Psychiatrist Psychiatry 03/22/12 documented as of this encounter
--- OUTSIDE RECORDS SUMMARY | 2022-03-14 18:45 | XMS_ITS | Encounter Summary ---
:1970 Author Organization [facility] Address [address] [place] [address] Care Team Providers Name Role Phone Gagandeep Hinojosa MD Primary Care Provider Encounter Details Date Type Department Care Team Description 02/24/2016 Lab Visit [facility] Uncontrolled type 2 diabetes mellitus with diabetic polyneuropathy, with long- term current use of insulin (HRC); [address] Nonspecific abnormal results of liver function study [place] Vigil [address] Social History Tobacco Use Types Packs/Day Years [...] / Volume Laterality Urine specimen 02/24/2016 11:10 6 2:50 (specimen) AM CDT PM CDT Narrative PN SOFT - 02/24/2016 4:26 PM CDT Performed at [facility], [place], [address] [place] [address] CLIA number [id number] Gagandeep Hinojosa MD LAB_1 Performing Organization Address [facility] Phon e Number PN SOFT [address] [place] [address] (ABNORMAL) POCT Glycosylated Hemoglobin (HB A1C) (02/24/2016 10:56 AM CDT) [facility] gist Method Time Signature Glycosolated HGB 10.9 (H) [...] - 02/24/2016 11:30 AM CDT Performed at [facility], [place], [address] [place] [address] CLIA number [id number] Gagandeep Hinojosa MD LAB_1 Performing Organization Address [facility] [address]/[facility] Phon e Number PN SOFT [address] [place] [address] Extra Serum Separator Tube (yellow) (02/24/2016 10:54 AM CDT) athologist Signature Extra SST Top Drawn PN SOFT Drawn Specimen (Source) Anatomical Location Collection Method / Collectio n Time Received Time / Laterality Volume Narrative PN SOFT - 02/24/2016 10:54 AM CDT Performed at [facility], [place], [address] [place] [address] [place] number [id number] Gagandeep Hinojosa MD LAB_1 Performing Organization Address City/State/ZIP Code Phon e Number PN SOFT [address] [place] [address] documented in this encounter Visit Diagnoses Diagnosis Uncontrolled type 2 diabetes mellitus wi th diabetic polyneuropathy, with long-term current use of insulin Nonspecific abnormal results of liver fu nction study documented in this encounter Care Teams Computer Artist Relationship Specialty Start Date End Date Gagandeep Hinojosa MD PCP - General 05/17/[address] [place] [address] Vane Zarate Psychiatrist Psychiatry 03/22/12 documented as of this encounter
--- OUTSIDE RECORDS SUMMARY | 2022-03-14 18:45 | XMS_ITS | Encounter Summary ---
:1970 Author Organization [facility] Address [address] [place] [address] Care Team Providers Name Role Phone Gagandeep Hinojosa MD Primary Care Provider Reason for Visit Reason Onset Date Comments [facility] Phone Visit 06/28/2016 Encounter Details Date Type Department Care Team Description 06/28/2016 Care Coord Phone Judy Luke R N [facility] Phone Visit Medicine 1415 [facility] 14[address] [facility] [place] [address] [place] [address] [phone] Social History Tobacco Use Types Packs/Day Years [...] RN - 06/28/2016 1:49 PM CST RN Account Solutions Analyst - Diabetes Follow-Up Current diabetes medication [...] with plan of care and follow up. RATOR REBUILDER documented in this encounter Plan of Treatment Not on filedocumented as of this encounter Visit Diagnoses Diagnosis Health nursing home, active care coordinati on - Primary Uncontrolled type 2 diabetes mellitus wi th hyperglycemia, with long-term current use of insulin (HRC) documented in this encounter Care Teams Booky Relationship Specialty Start Date End Date Gagandeep Hinojosa MD PCP - General 05/17/[address] [place] [address] [place] Gerber [address] Vane Zarate Psychiatrsamantha Psychiatry 03/22/12 documented as of this encounter
--- OUTSIDE RECORDS SUMMARY | 2022-03-14 18:46 | XMS_ITS | Encounter Summary ---
:1970 Author Organization [facility] Address [address] [place] [address] Care Team Providers Name Role Phone Gagandeep Hinojosa MD Primary Care Provider Encounter Details Date Type Department Care Team Description 03/27/2015 Lab Visit [place] [facility] Type 2 diabetes mellitus, [address] [place] [address] Social History Tobacco Use Types Packs/Day Years Used Date Smoking Tobacco: Never Assessed Sex Assigned at Date Recorded Not on file documented as of this encounter Plan of Treatment Not on filedocumented as of this encounter Procedures Procedure Name Priority Date/Time Associated Diagnosis Comme nts HGB A1C Routine 03/27/2015 2:34 PM Type 2 diabetes Result s for this CLIENT COORDINATOR mellitus, uncontrolled proce dure are in (C) the results section. documented in this encounter Results (ABNORMAL) Hgb A1c (03/27/2015 2:34 PM CLIENT COORDINATOR) athologist Signature HGB A1C 10.9 (H) 4.0 - 5.6 % HP CONVERSION Specimen Anatomical Collection Method Collection Time Receive d Time (Source) Location / / Volume Laterality 03/27/2015 2:34 PM 5 7:20 CLIENT COORDINATOR PM CLIENT COORDINATOR Narrative HP CONVERSION - 03/28/2015 10:19 AM CLIENT COORDINATOR Performed at [place] [address] [place] [address] CLIA number [id number] Gagandeep Hinojosa MD LAB_1 Performing Organization Address City/State/ZIP Code Phon e Number HP CONVERSION documented in this encounter Visit Diagnoses Diagnosis Type 2 diabetes mellitus, uncontrolled Type II or unspecified type diabetes jasen litus without mention of complication, uncontrolled documented in this encounter Care Teams Certification Engineer Relationship Specialty Start Date End Date Gagandeep Hinojosa MD PCP - General 05/17/12 14[address] [facility] [place] [address] Vane Zarate Psychiatrsamantha Psychiatry 03/22/12 documented as of this encounter
--- OUTSIDE RECORDS SUMMARY | 2022-03-14 18:46 | XMS_ITS | Encounter Summary ---
:1970 Author Organization [facility] Address [address] [place] [address] Care Team Providers Name Role Phone Gagandeep Hinojosa MD Primary Care Provider Reason for Visit Reason Comments Registry Encounter Details Date Type Department Care Team Description 11/07/2015 [facility]ders [facility] Gagandeep Hinojosa MD 1415 [facility] . 1415 [facility] [place] [address] [place] [address] [phone] (Wo rk) Social History Tobacco Use Types Packs/Day Years Used Date Smoking Tobacco: Never Assessed Sex Assigned at Date Recorded Not on file documented as of this encounter Plan of Treatment Not on filedocumented as of this encounter Visit Diagnoses Not on filedocumented in this encounter Care Teams Msws Relationship Specialty Start Date End Date Gagandeep Hinojosa MD PCP - General 05/17/12 14[address] [facility] [place] [address] Vane Zarate Psychiatrist Psychiatry 03/22/12 documented as of this encounter
--- OUTSIDE RECORDS SUMMARY | 2022-03-14 18:46 | XMS_ITS | Encounter Summary ---
:1970 Author Organization [facility] Address [address] [place] [address] Care Team Providers Name Role Phone Gagandeep Hinojosa MD Primary Care Provider Reason for Visit Reason Comments MANTOUX/PPD Encounter Details Date Type Department Care Team Description 01/26/2016 [facility] PPD scree miky test Medicine (Primary Dx) [address] [place] [address] Social History Tobacco Use Types Packs/Day Years [...] SKIN TEST (PPD) (01/29/2016 11:20 AM CDT) [facility] Method Time Signature TB Skin Test 0.0 MM PN POCT Negative Joce Foster MD OPC IMMUNIZATION Performing Organization Address City/State/ZIP Code Phon e Number POCT PN POCT documented in this encounter Visit Diagnoses Diagnosis PPD screening test - Primary Screening examination for pulmonary tube rculosis documented in this encounter Care Teams Slip Cover Cutter Relationship Specialty Start Date End Date Gagandeep Hinojosa MD PCP - General 05/17/12 3615 [facility] [place] [address] Vane Zarate Psychiatrist Psychiatry 03/22/12 documented as of this encounter
--- OUTSIDE RECORDS SUMMARY | 2022-03-14 18:46 | XMS_ITS | Encounter Summary ---
:1970 Author [facility] Address [address] [place] [address] Care Team Providers Name Role Phone Gagandeep Michaud MD Primary Care Provider Reason for Visit Reason Comments Refill Encounter Details Date Type Department Care Team Description 03/29/2015 [facility]aud [facility] . [address] [facility] [place] [address] [place] [address] [phone] (Wo rk) Social History Tobacco Use Types Packs/Day Years Used Date Smoking Tobacco: Never Assessed Sex Assigned at Date Recorded Not on file documented as of this encounter Nursing Notes Jackie [place] CMA - 03/31/2015 8:38 AM CST Requested prescription was last renewed on 12/09/14 and sent to [facility] pharmacy with year supply. Requested Prescriptions Refused Prescriptions Disp Refills ??? lisinopril (PRINIVIL, ZESTRIL) 5 mg tablet [Pharmacy Med Name: LISINOPRIL 5MG TABLETS] 90 tablet3 Sig: TAKE 1 TABLET BY MOUTH EVERY DAY Refused By: JACKIE FREDERICK V Reason for Refusal: REQUEST ALREADY RESPONDED TO BY OTHER MEANS (E.G. PHONE OR FAX) Shani Rosen - 03/31/2015 8:38 AM CST lisinopril (PRINIVIL, [...] - K: 5.0mEq/L on 03/27/2015 Powered by [employer], Reference: [id number], 03/29/2015 10:43:13 AM Jaxon GRANGER: MANUEL LANDAILL ([id number]) LESS DEVELOPMENT MANAGER documented in this encounter Plan of Treatment Not on filedocumented as of this encounter Visit Diagnoses Not on filedocumented in this encounter Care Teams Corporate Services Manager Relationship Specialty Start Date End Date Gagandeep Michaud MD PCP - General 05/17/12 [facility] [place] Hernandez [address] Vane Zarate Psychiatrist Psychiatry 03/22/12 documented as of this encounter
--- OUTSIDE RECORDS SUMMARY | 2022-03-14 18:46 | XMS_ITS | Encounter Summary ---
:1970 Author Organization [facility] Address [address] [place] [address] Care Team Providers Name Role Phone Gagandeep Hinojosa MD Primary Care Provider Reason for Visit Reason Comments Diabetes Letter needs letter for work re ralph traore Encounter Details Date Type Department Care Team Description 02/24/2016 Office Visit Gagandeep Storm Uncontro lled type 2 diabetes mellitus without complication, with long-term current use of insulin (HRC) (Primary Dx); Romario Rubio MD Encounter for immunization; [address] [place] [address] Tobacco use disorder; [address] Uncontrolled type 2 diabetes mellitus wi thout complication, with long-term current use of insulin (HRC) [E11.65, Z79.4]; [place] Vigil [address] [place] VIGIL Hyperlipidemia, unspecified hyperlipidemia type (HRC) [E78.5]; [phone] [address] Financial difficulties Social History Tobacco Use Types [...] stable. Stable weight. 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 [...] current use of insulin([facility]) E11.65 insulin regular (HUMULIN R) 100 UNIT/ML injection Z79.4 insulin isophane (NOVOLIN NPH,HUMULIN NPH) 100 UNIT/ML injection 2. Encounter for immunization Z23 Influenza (Fluarix 0.5, 3+ Yrs) 3. Tobacco use disorder ([facility]) F17.200 TOBACCO-USE MEDICAL OFFICE SECRETARY 3-10 MIN (SYMPTOMATIC) 4. Uncontrolled type 2 diabetes mellitus without complication, with long-term current use of insulin(HRC) [E11.65, Z79.4] E11.65 Microalb/Creat Ratio Z79.4 POCT Glycosylated Hemoglobin (HB A1C) Basic Metabolic Panel 5. Hyperlipidemia, unspecified hyperlipidemia type (HR) [E78.5] E78.5 Lipid Panel and Direct LDL(IfNeeded) [...] Results (ABNORMAL) Microalb/Creat Ratio (06/09/2016 10:18 AM SEAFOOD SERVICE TEAM MEMBER) [facility] Time Signature Microalbumin 80.1 mg/L PN SOFT Urine U Creat Random 102 mg/dL PN SOFT Microalbumin/Crea 78.5 (H) 0.0 - PN SOFT tinine Ratio 30.0 Specimen Anatomical Collection Method Collection Time Receive d Time (Source) Location / / Volume Laterality Urine specimen 06/09/2016 10:18 7 (specimen) AM SEAFOOD SERVICE TEAM MEMBER 11:38 AM SEAFOOD SERVICE TEAM MEMBER Narrative PN SOFT - 06/09/2016 2:09 PM SEAFOOD SERVICE TEAM MEMBER Performed at [facility], [facility] [address] [place] [address] CLIA number [id number] Gagandeep Hinojosa MD LAB_1 Performing Organization Address [facility] Phon e Number PN SOFT [address] [place] [address] (ABNORMAL) Lipid Panel and Direct LDL(If Needed) (06/09/2016 9:22 AM SEAFOOD SERVICE TEAM MEMBER) [facility] Signature Cholesterol 123 0 - 199 PN [...] / Volume Laterality 06/09/2016 9:22 AM 7 SEAFOOD SERVICE TEAM MEMBER 11:38 AM SEAFOOD SERVICE TEAM MEMBER Narrative PN SOFT - 06/09/2016 12:25 PM SEAFOOD SERVICE TEAM MEMBER Performed at [facility], [address] [place] [address] CLIA number [id number] Gagandeep Hinojosa MD LAB_1 Performing Organization Address [facility] Phon e Number PN SOFT [address] [place] [address] (ABNORMAL) POCT Glycosylated Hemoglobin (HB A1C) (06/09/2016 9:22 AM SEAFOOD SERVICE TEAM MEMBER) Patholo gist Method Time Signature Glycosolated HGB [...] Volume Laterality 06/09/2016 9:22 AM 7 9:22 SEAFOOD SERVICE TEAM MEMBER AM SEAFOOD SERVICE TEAM MEMBER Narrative PN SOFT - 06/09/2016 9:45 AM SEAFOOD SERVICE TEAM MEMBER Performed at [facility], [address] [place] [address] CLIA number [id number] Gagandeep Hinojosa MD LAB_1 Performing Organization Address City/State/ZIP Code Phon e Number PN SOFT [address] [place] [address] [phone] documented in this encounter Visit Diagnoses Diagnosis [...] resources documented in this encounter Care Teams Machine Group Leader Relationship Specialty Start Date End Date Gagandeep Hinojosa MD PCP - General 05/17/[address] [place] [address] Vane Zarate Psychiatrsamantha Psychiatry 03/22/12 documented as of this encounter
--- OUTSIDE RECORDS SUMMARY | 2022-03-14 18:46 | XMS_ITS | Encounter Summary ---
:1970 Author Organization [facility] Address [address] [place] [address] Care Team Providers Name Role Phone Gagandeep Hinojosa MD Primary Care Provider Reason for Visit Reason Comments Test Request Encounter Details Date Type Department Care Team Description 11/03/2015 Telephone [facility] Gagandeep Hinojosa MD Test Request 1415 [facility] . [address] [place] [address] [place] [address] [phone] (Wo rk) Social History Tobacco Use Types [...] Lab orders requested. Next Steps: Route to [facility] for patient follow up. [...] tomorrow. *If symptom related, send to triage Administrative And Program Specialist: Timur Krishnamurthy Best call back number: [phone] cell vm/y Is it OK to leave a confidential message on this voicemail? yes ENT MANUFACTURER documented in this encounter Plan of Treatment Not on filedocumented as of this encounter Visit Diagnoses Diagnosis Bipolar I disorder (HRC) Bipolar I disorder, most recent episode (or current) unspecified Hyperlipidemia with target LDL less than 70 (HRC) Other and unspecified hyperlipidemia documented in this encounter Care Teams Science Instructor Relationship Specialty Start Date End Date Gagandeep Hinojosa MD PCP - General 05/17/12 [facility] [place] [address] Vane Zarate Psychiatrist Psychiatry 03/22/12 documented as of this encounter
--- OUTSIDE RECORDS SUMMARY | 2022-03-14 18:46 | XMS_ITS | Encounter Summary ---
:1970 Author Organization [facility] [facility] Address [address] [place] [address] Care Team Providers Name Role Phone Gagandeep Hinojosa MD Primary Care Provider Reason for Visit Reason Comments Diabetes Rash Encounter Details Date Type Department Care Team Description 07/18/2015 Office Visit Gagandeep Storm Type 2 d iabetes mellitus, uncontrolled (HRC) (Primary Dx); Medicine MD JF Rubio (arteriosclerotic heart disease); [address] [place] 1415 [facility] Hyperlip idemia with target LDL less than 70; Ave. 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 03/27/2015: Received from: [employer] ??? omega-3 fatty acids-fish oil 340-1,000 mg [...] Coronary atherosclerosis of unspecified type of vessel, coquille or graft Hyperlipidemia, unspecified hyperlipidem ia type (HRC) Tobacco use disorder (HRC) Tobacco use disorder Tinea versicolor Pityriasis versicolor 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, uncontrolled Diabetic polyneuropathy associated with type 2 diabetes mellitus (HRC) [facility] current use of insulin (HRC) Encounter for long-term (current) use of insulin Long-term insulin use in type 2 diabetes (HRC) Type II or unspecified type diabetes jasen litus without mention of complication, not stated as uncontrolled Essential hypertension (HRC) Unspecified essential hypertension Obesity, unspecified obesity severity, u nspecified obesity type (HRC) documented in this encounter Care Teams Rolloff Truck Driver Relationship Specialty Start Date End Date Gagandeep Hinojosa MD PCP - General 05/17/12 [address] [place] [address] Vane Zarate Psychiatrsamantha Psychiatry 03/22/12 documented as of this encounter
--- OUTSIDE RECORDS SUMMARY | 2022-03-14 18:46 | XMS_ITS | Encounter Summary ---
:1970 Author Organization [facility] Address [address] [place] [address] Care Team Providers Name Role Phone Gagandeep Hinojosa MD Primary Care Provider Reason for Visit Reason Onset Date Comments INSECT STING--BEE--ED 12/31/2015 Encounter Details Date Type Department Care Team Description 12/31/2015 Nurse Triage [facility] Gagandeep Hinojosa INSECT S TING--BEE--ED Medicine MD Joanne [address] [place] [address] Ave [phone] [place], [place] [address] Social History Tobacco Use [...] - 12/31/2015 1:22 PM CDT Protocol: MOSQUITO [id number] Affirmative: Mosquito bite(s) Disposition of Home Care [...] filedocumented in this encounter Care Teams Front Desk Admin Relationship Specialty Start Date End Date Gagandeep Hinojosa MD PCP - General 05/17/12 1415 [facility] [place] [address] Vane Zarate Psychiatrist Psychiatry 03/22/12 documented as of this encounter
--- OUTSIDE RECORDS SUMMARY | 2022-03-14 18:46 | XMS_ITS | Encounter Summary ---
:1970 Author Organization [employer] [facility] Address [address] [place] [address] Care Team Providers Name Role Phone Gagandeep Hinojosa MD Primary Care Provider Encounter Details Date Type Department Care Team Description 11/04/2015 Lab Visit [place] [facility] Type 2 diabetes mellitus, un controlled ([facility]); [address] [facility] . Bipolar I disorder ([facility]); [place] [address] Hyperlipidemia with target L DL less than [...] CDT mellitus, uncontrolled proce dure are in ([facility]) the results section. POCT GLYCOSYLATED STAT 11/04/2015 3:13 Type 2 diabetes Resu lts for this HEMOGLOBIN (HB A1C) PM CDT mellitus, uncontrolle d procedure are in ([facility]) the results section. LIVER PANEL(HEPATIC STAT 11/04/2015 3:13 Resul ts for this FUNCTION PANEL) PM CDT procedure ar e in the results section. VALPROIC ACID Routine 11/04/2015 3:13 Bipolar I disorder Resul ts for this (DEPAKENE) PM CDT ([facility]) procedure are i n the [...] (ABNORMAL) Microalb/Creat Ratio (11/04/2015 3:18 PM CDT) [facility] Method Time Signature Microalbumin 98.2 mg/L HP CONVERSION Urine U Creat Random 284 mg/dL HP CONVERSION Microalbumin/Cre 34.6 (H) 0.0 - HP CONVERSION atinine Ratio 30.0 Specimen Anatomical Collection Method Collection Time Receive d Time (Source) Location / / Volume Laterality 11/04/2015 3:18 PM 6 8:48 CDT AM CDT Narrative HP CONVERSION - 11/05/2015 9:25 AM CDT Performed at [facility], [address] [place] [address] CLIA number [id number] Gagandeep Hinojosa MD LAB_1 Performing Organization Address City/[facility] Phon e Number HP CONVERSION Liver Panel(Hepatic Function Panel) (11/04/2015 3:13 PM CDT) [facility] Method Time Signature Alk Phos 53 [...] - 11/05/2015 6:06 PM CDT Performed at [facility], [facility] [address] [place] [address] CLIA number [id number] Gagandeep Hinojosa MD LAB_1 Performing Organization Address City/[facility] Code Phon e Number HP CONVERSION ALT (SGPT) (11/04/2015 3:13 PM CDT) [facility] gist Method Time Signature Alanine 23 9 - 55 HP CONVERSION Aminotransferase U/L Specimen Anatomical Collection Method Collection Time Receive d Time (Source) Location / / Volume Laterality 11/04/2015 3:13 PM 6 8:48 CDT AM CDT Narrative HP CONVERSION - 11/05/2015 9:21 AM CDT Performed at [facility], [address] [place] [address] CLIA number [id number] Gagandeep Hinojosa MD LAB_1 Performing Organization Address City/[facility] Code Phon e Number HP CONVERSION AST (11/04/2015 3:13 PM CDT) [facility] Method Time Signature Aspartate 20 9 - 34 HP CONVERSION Aminotransferase U/L Specimen Anatomical Collection Method Collection Time Receive d Time (Source) Location / / Volume Laterality 11/04/2015 3:13 PM 6 8:48 CDT AM CDT Narrative HP CONVERSION - 11/05/2015 9:21 AM CDT Performed at [facility] [place] [facility], [address] [place] [address] CLIA number [id number] Gagandeep Hinojosa MD LAB_1 Performing Organization Address [facility] Code Phon e Number HP CONVERSION Valproic Acid (Depakene) (11/04/2015 3:13 PM CDT) [facility] gist Method Time Signature Date Last [...] - 11/04/2015 10:41 PM CDT Performed at [facility] [address] [place] [address] CLIA number [id number] Gagandeep Hinojosa MD LAB_1 Performing Organization Address City/[facility]/ZIP Code Phon e Number HP [...] - 11/04/2015 3:35 PM CDT Performed at [facility], [address] [place] [address] CLIA number [id number] Gagandeep Hinojosa MD LAB_1 Performing Organization Address [facility] Phon e Number HP CONVERSION EXTRA SERUM SEPARATOR TUBE (YELLOW) (11/04/2015 3:07 PM CDT) athologist Signature Extra SST Top Drawn HP CONVERSION Drawn Specimen (Source) Anatomical Collection Method Collection Time Re ceived Time Location / / Volume Laterality 11/04/2015 3:07 PM CDT Narrative HP CONVERSION - 11/04/2015 3:07 PM CDT Performed at [facility], [address] [place] [address] CLIA number [id number] Gagandeep Hinojosa MD LAB_1 Performing Organization Address [facility] Phon e Number HP CONVERSION documented in this encounter Visit Diagnoses Diagnosis Type 2 diabetes mellitus, uncontrolled Type II or unspecified type diabetes jasen litus without mention of complication, uncontrolled Bipolar I disorder (HRC) Bipolar I disorder, most recent episode (or current) unspecified Hyperlipidemia with target LDL less than 70 (HRC) Other and unspecified hyperlipidemia documented in this encounter Care Teams Healthcare Prof Relationship Specialty Start Date End Date Gagandeep Hinojosa MD PCP - General 05/17/[address] [place] [address] Vane Zarate Psychiatrist Psychiatry 03/22/12 documented as of this encounter
--- OUTSIDE RECORDS SUMMARY | 2022-03-14 18:46 | XMS_ITS | Encounter Summary ---
:1970 Author Organization [facility] Address [address] [place] [address] Care Team Providers Name Role Phone Gagandeep Hinojosa MD Primary Care Provider Reason for Visit Reason Comments Diabetes NUMBNESS Nicotine Dependence Encounter Details Date Type Department Care Team Description 11/04/2015 Office Visit Gagandeep Storm Type 2 d iabetes mellitus, uncontrolled ([facility]) (Primary Dx); Romario Rubio MD Need for Tdap vaccination; [address] Nonspeci fic abnormal results of liver function study; [address] Atherosclerosis of coronary artery, dequan na presence unspecified, unspecified vessel or lesion type, unspecified whether [place] or transplanted heart ([facility]); [place] [address] [place] curb worker current use of ins ulin ([facility]); [phone] Long-term insulin use in type 2 diabetes ([facility]); [phone] Hyperlipidemia, unspecified hyperlipidemia type; (Work) Tobacco use disorder; [phone] Obesity, unspec ified obesity severity, unspecified obesity [...] patch onto the skin. 03/27/2015: Received from: [facility] ??? omega-3 fatty acids-fish oil 340-1,000 mg [...] diabetes mellitus without mention of complication, uncontrolled ([facility])E11.65 lisinopril (PRINIVIL, ZESTRIL) 5 mg tablet insulin NPH (NOVOLIN N) 100 unit/mL Susp insulin regular (NOVOLIN R) 100 unit/mL injection lisinopril (PRINIVIL, ZESTRIL) 5 mg tablet 2. Need for Tdap vaccination Z23 Tdap (BOOSTRIX) 3. Liver Function Tests Abnormal R94.5 Hepatic Function Panel 4. Atherosclerosis of coronary artery, angina presence unspecified, unspecified vessel or lesion type, unspecified whether [place] or transplanted heart I25.10 lisinopril (PRINIVIL, ZESTRIL) [...] yes strongly encouraged to consider smoking cessation NEONATAL documented in this encounter Plan of Treatment [...] Need for prophylactic vaccination with c ombined vjjhqgqutg-gdormee-rgymijtzl (DTP) vaccine Nonspecific abnormal results of liver fu nction study Atherosclerosis of coronary artery, dequan na presence unspecified, unspecified vessel or lesion type, unspecified whether sav[place] ve or transplanted heart (HRC) curb worker current use of insulin (HRC) Encounter [...] (HRC) documented in this encounter Care Teams Break Out Man Relationship Specialty Start Date End Date Gagandeep Hinojosa MD PCP - General 05/17/12 [address] [place] [address] Vane Zarate Psychiatrist Psychiatry 03/22/12 documented as of this encounter
--- OUTSIDE RECORDS SUMMARY | 2022-03-14 18:46 | XMS_ITS | Encounter Summary ---
:1970 Author Organization [employer] Address [address] [place] [address] Care Team Providers Name Role Phone Gagandeep Hinojosa MD Primary Care Provider Encounter Details Date Type Department Care Team Description 07/18/2015 Lab Visit [place] [facility] Type 2 diabetes mellitus, un controlled ([facility]); [address] . Microalbuminuria; [place] [address] Hyperlipidemia; [phone] Essential hyper tension Social History Tobacco Use [...] mellitus, uncontrolled proc edure are in NEEDED) ([facility]) the results Type 2 diabetes section. mellitus, uncontrolled ([facility]) Hyperlipidemia CREATININE / GFR Routine 07/18/2015 9:01 Type 2 diabetes Resul ts for this AM CDT mellitus, uncontrolled proce dure are in ([facility]) the results Essential hypertension secti on. ELECTROLYTE PANEL Routine 07/18/2015 9:01 Essential hypertensi on Results for this AM CDT procedure are i n the results section. EXTRA SERUM Routine 07/18/2015 8:48 Results for this SEPARATOR TUBE AM CDT procedure are in (YELLOW) the results section. documented in this encounter Results (ABNORMAL) Microalb/Creat Ratio (07/18/2015 9:12 AM CDT) [facility] Method Time Signature Microalbumin 349.6 mg/L HP CONVERSION Urine U Creat Random 254 mg/dL HP CONVERSION Microalbumin/Cre 137.6 (H) 0.0 - HP CONVERSION atinine Ratio 30.0 Specimen Anatomical Collection Method Collection Time Receive d Time (Source) Location / / Volume Laterality 07/18/2015 9:12 AM 6 CDT 11:32 AM CDT Narrative HP CONVERSION - 07/18/2015 12:56 PM CDT Performed at [facility], [address] [place], [place] [address] CLIA number [id number] Gagandeep Hinojosa MD LAB_1 Performing Organization Address [facility] Phon e Number HP CONVERSION (ABNORMAL) POCT GLYCOSYLATED HEMOGLOBIN (HB A1C) (07/18/2015 9:01 AM CDT) [facility] Method Time Signature Glycosolated HGB 12.1 (H) 4.0 [...] - 07/18/2015 9:15 AM CDT Performed at [facility], [address] [place] [address] CLIA number [id number] Gagandeep Hinojosa MD LAB_1 Performing Organization Address City/[facility] Phon e Number HP CONVERSION (ABNORMAL) Creatinine / GFR (07/18/2015 9:01 AM CDT) [facility] Method Time Signature Creatinine 0.60 (L) [...] - 07/18/2015 12:47 PM CDT Performed at [facility], [address] [place] [address] CLIA number [id number] Gagandeep Hinojosa MD LAB_1 Performing Organization Address City/[facility] Phon e Number HP CONVERSION (ABNORMAL) Electrolyte [...] - 07/18/2015 12:47 PM CDT Performed at [facility], [address] [place] [address] CLIA number [id number] Gagandeep Hinojosa MD LAB_1 Performing Organization Address City/[facility] Phon e Number HP CONVERSION (ABNORMAL) Lipid [...] - 07/18/2015 12:47 PM CDT Performed at [facility], [address] [place] [address] CLIA number [id number] Gagandeep Hinojosa MD LAB_1 Performing Organization Address City/[facility] Phon e Number HP CONVERSION EXTRA SERUM SEPARATOR TUBE (YELLOW) (07/18/2015 8:48 AM CDT) athologist Signature Extra SST Top Drawn HP CONVERSION Drawn Specimen (Source) Anatomical Collection Method Collection Time Re ceived Time Location / / Volume Laterality 07/18/2015 8:48 AM CDT Narrative HP CONVERSION - 07/18/2015 8:48 AM CDT Performed at [facility], [address] [place] [address] CLIA number [id number] Gagandeep Hinojosa MD LAB_1 Performing Organization Address City/[facility] Phon e Number HP CONVERSION documented in this encounter Visit Diagnoses Diagnosis Type 2 diabetes mellitus, uncontrolled Type II or unspecified type diabetes jasen litus without mention of complication, uncontrolled Microalbuminuria Proteinuria Hyperlipidemia (HRC) Other and unspecified hyperlipidemia Essential hypertension (HRC) Unspecified essential hypertension documented in this encounter Care Teams Radio Machinist Relationship Specialty Start Date End Date Gagandeep Hinojosa MD PCP - General 05/17/[address] [place] [address] Vane Zarate Psychiatrist Psychiatry 03/22/12 documented as of this encounter
--- OUTSIDE RECORDS SUMMARY | 2022-03-14 18:46 | XMS_ITS | Encounter Summary ---
:1970 Author Organization [employer] Address [address] [place] [address] Care Team Providers Name Role Phone Gagandeep Hinojosa MD Primary Care Provider Encounter Details Date Type Department Care Team Description 03/27/2015 Lab Visit [facility] Type 2 diabetes mellitus, un controlled; [address] Hyperlipidemia; [place] [address] Essential hypertension [phone] Social History Tobacco Use Types Packs/Day Years Used Date Smoking Tobacco: Never Assessed Sex Assigned at Date Recorded Not on file documented as of this encounter Plan of Treatment Not on filedocumented as of this encounter Procedures Procedure Name Priority Date/Time Associated Diagnosis Comme nts ALBUMIN/CREAT RATIO Routine 03/27/2015 3:41 Type 2 diabetes Re sults for this PM EDI COORDINATOR mellitus, uncontrolled proce dure are in (HRC) the results section. LIPID PANEL AND Routine 03/27/2015 1:53 Essential hypertension Results for this DIRECT LDL(IF PM EDI COORDINATOR procedure are in NEEDED) the results section. CREATININE / GFR Routine 03/27/2015 1:53 Essential hypertensio n Results for this PM EDI COORDINATOR procedure are i n the results section. ELECTROLYTE PANEL Routine 03/27/2015 1:53 Hyperlipidemia Resul ts for this PM EDI COORDINATOR procedure are i n the results section. documented in this encounter Results (ABNORMAL) Microalb/Creat Ratio (03/27/2015 3:41 PM EDI COORDINATOR) [facility] Method Time Signature Microalbumin 26.1 mg/L HP CONVERSION Urine U Creat Random 63 58 - 161 HP CONVERSION mg/dL Microalbumin/Cre 41.4 (H) 0.0 - HP CONVERSION atinine Ratio 30.0 Specimen Anatomical Collection Method Collection Time Receive d Time (Source) Location / / Volume Laterality 03/27/2015 3:41 PM 5 5:47 EDI COORDINATOR PM EDI COORDINATOR Narrative HP CONVERSION - 03/27/2015 6:43 PM EDI COORDINATOR Performed at [facility] [place] [address] [place] [address] CLIA number [id number] Gagandeep Hinojosa MD LAB_1 Performing Organization Address [facility] Phon e Number HP CONVERSION (ABNORMAL) Lipid Panel and Direct LDL(If Needed) (03/27/2015 1:53 PM EDI COORDINATOR) [facility] Method Time Signature Cholesterol 148 0 [...] Volume Laterality 03/27/2015 1:53 PM 5 5:47 EDI COORDINATOR PM EDI COORDINATOR Narrative HP CONVERSION - 03/27/2015 6:44 PM EDI COORDINATOR Performed at [facility] [place] [address] [place] [address] CLIA number [id number] Gagandeep Hinojosa MD LAB_1 Performing Organization Address [facility] Phon e Number HP CONVERSION (ABNORMAL) Creatinine / GFR (03/27/2015 1:53 PM EDI COORDINATOR) [facility] Method Time Signature Creatinine 0.60 (L) 0.73 [...] Volume Laterality 03/27/2015 1:53 PM 5 5:47 EDI COORDINATOR PM EDI COORDINATOR Narrative HP CONVERSION - 03/27/2015 6:44 PM EDI COORDINATOR Performed at [facility] [place], [facility] [address] [place] [address] CLIA number [id number] Gagandeep Hinojosa MD LAB_1 Performing Organization Address [facility] Phon e Number HP CONVERSION (ABNORMAL) Electrolyte Panel (03/27/2015 1:53 PM EDI COORDINATOR) athologist Signature Sodium 133 (L) 136 - 145 HP CONVERSION mmol/L Potassium 5.0 3.5 - 5.2 HP CONVERSION mmol/L Chloride 98 98 - 107 HP CONVERSION mmol/L Bicarbonate 24 22 - 29 HP CONVERSION mmol/L Specimen Anatomical Collection Method Collection Time Receive d Time (Source) Location / / Volume Laterality 03/27/2015 1:53 PM 5 5:47 EDI COORDINATOR PM EDI COORDINATOR Narrative HP CONVERSION - 03/27/2015 6:44 PM EDI COORDINATOR Performed at [facility] [place], [facility] [address] [place] [address] CLIA number [id number] Gagandeep Hinojosa MD LAB_1 Performing Organization Address [facility] Phon e Number HP CONVERSION documented in this encounter Visit Diagnoses Diagnosis Type 2 diabetes mellitus, uncontrolled Type II or unspecified type diabetes jasen litus without mention of complication, uncontrolled Hyperlipidemia (HRC) Other and unspecified hyperlipidemia Essential hypertension (HRC) Unspecified essential hypertension documented in this encounter Care Teams Locomotive Crane Operator Relationship Specialty Start Date End Date Gagandeep Hinojosa MD PCP - General 05/17/[address] [place] [address] [place] [id number] Vane Zarate Psychiatrsamantha Psychiatry 03/22/12 documented as of this encounter
--- OUTSIDE RECORDS SUMMARY | 2022-03-14 18:46 | XMS_ITS | Encounter Summary ---
:1970 Author Organization [facility] Address [address] [place] [address] Care Team Providers Name Role Phone Gagandeep Hinojosa MD Primary Care Provider Reason for Visit Reason Comments Medication Questions Encounter Details Date Type Department Care Team Description 07/22/2015 Telephone [facility] Gagandeep Hinojosa, Medic ation Questions Medicine [address] [facility] . [address] [place] [address] [place] [address] [phone] (Wo rk) Social History Tobacco Use Types [...] have been lower 100-150. To to address UNT DIRECTOR Gloria Rodrigues - 07/22/2015 12:47 PM CDT [...] on filedocumented in this encounter Care Teams Wet Machine Operator Relationship Specialty Start Date End Date Gagandeep Hinojosa MD PCP - General 05/17/[address] [place] [address] [place] [address] Vane Zarate Psychiatrsamantha Psychiatry 03/22/12 documented as of this encounter
--- OUTSIDE RECORDS SUMMARY | 2022-03-14 18:46 | XMS_ITS | Encounter Summary ---
:1970 Author Organization [facility] Address [address], [place] [address] Care Team Providers Name Role Phone Gagandeep Hinojosa MD Primary Care Provider Reason for Visit Reason Comments MANTOUX/PPD READ Encounter Details Date Type Department Care Team Description 01/29/2016 Nursing Visit [facility] Encounter for PPD skin Medicine test reading (Primary [address] [facility] . Dx) [place] [address] Social History Tobacco Use Types Packs/Day Years [...] imary documented in this encounter Care Teams Recruiter Specialist Relationship Specialty Start Date End Date Gagandeep Hinojosa MD PCP - General 05/17/12 [address] [facility] [place] [phone] Vane Zarate Psychiatrist Psychiatry 03/22/12 documented as of this encounter
--- OUTSIDE RECORDS SUMMARY | 2022-03-14 18:46 | XMS_ITS | Encounter Summary ---
:1970 Author Organization [facility] Address [address] [place] [address] Care Team Providers Name Role Phone Gagandeep Hinojosa MD Primary Care Provider Encounter Details Date Type Department Care Team Description 07/07/2015 Notes/Orders [facility] Gagandeep Hinojosa MD [address] [facility] . [address] [facility] [place] [address] [place] [address] [phone] (Wo rk) Social History Tobacco Use Types Packs/Day Years Used Date Smoking Tobacco: Never Assessed Sex Assigned at Date Recorded Not on file documented as of this encounter Miscellaneous Notes Letter - Gagandeep Hinojosa MD - 07/07/2015 12:00 AM CDT 07/07/2015 Timur Krishnamurthy [address] [place] [address] : 1970 Dear Timur: Gagandeep Hinojosa MD has reviewed your medical record and noticed you have not scheduled your diabetes visit. We want to make sure your diabetes treatment plan is right for you. Please call and schedule your visit at [phone]. We look forward to hearing from you, Gagandeep Hinojosa MD ER MANUFACTURE documented in this encounter Plan of Treatment Not on filedocumented as of this encounter Visit Diagnoses Not on filedocumented in this encounter Care Teams Nail Cutter Relationship Specialty Start Date End Date Gagandeep Hinojosa MD PCP - General 05/17/12 [address] [facility] [place] [address] Vane Zarate Psychiatrist Psychiatry 03/22/12 documented as of this encounter
--- OUTSIDE RECORDS SUMMARY | 2022-03-14 18:46 | XMS_ITS | Encounter Summary ---
:1970 Author Organization [facility] Address [address] [place] [address] Care Team Providers Name Role Phone Gagandeep Hinojosa MD Primary Care Provider Reason for Visit Reason Comments MANTOUX/PPD Encounter Details Date Type Department Care Team Description 02/05/2016 Nursing Visit [facility] PPD scree miky test Medicine (Primary Dx) [address] [place] [address] Social History Tobacco Use Types Packs/Day Years [...] rculosis documented in this encounter Care Teams Plant Health Care Technician Relationship Specialty Start Date End Date Gagandeep Hinojosa MD PCP - General 05/17/12 [address] [facility] [place] [address] Vane Zarate Psychiatrist Psychiatry 03/22/12 documented as of this encounter
--- OUTSIDE RECORDS SUMMARY | 2022-03-14 18:46 | XMS_ITS | Encounter Summary ---
:1970 Author Organization [facility] Address [address] [place] [address] Care Team Providers Name Role Phone Gagandeep Hinojosa MD Primary Care Provider Encounter Details Date Type Department Care Team Description 07/22/2015 [facility]ders [facility] [address] [facility] . [address] [facility] [address] [place] [address] [phone] (Wo rk) Social History Tobacco Use Types Packs/Day Years Used Date Smoking Tobacco: Never Assessed Sex Assigned at Date Recorded Not on file documented as of this encounter Plan of Treatment Not on filedocumented as of this encounter Visit Diagnoses Not on filedocumented in this encounter Care Teams Filler Shredder Relationship Specialty Start Date End Date Gagandeep Hinojosa MD PCP - General 05/17/12 [address] [place] [address] Vane Zarate Psychiatrsamantha Psychiatry 03/22/12 documented as of this encounter
--- OUTSIDE RECORDS SUMMARY | 2022-03-14 18:46 | XMS_ITS | Encounter Summary ---
:1970 Author Organization [facility] Address [address] [place] [address] Care Team Providers Name Role Phone Gagandeep Hinojosa MD Primary Care Provider Reason for Visit Reason Comments Diabetes Encounter Details Date Type Department Care Team Description 09/27/2015 Nurse Triage [facility] Gagandeep Hinojosa MD Diabetes 1415 [facility] . [address] [place] [address] [place] [address] [phone] (Wo rk) Social History Tobacco Use Types Packs/Day Years Used Date Smoking Tobacco: Never Assessed Sex Assigned at Date Recorded Not on file documented as of this encounter Nursing Notes Melanie Smith RN - 09/27/2015 9:40 AM CDT Protocol: DIABETES - HIGH BLOOD [id number]-WN Affirmative: Blood glucose > 400 mg/dl (22 mmol/l) Disposition of Call PCP Now suggested. PT took his BS this morning and it was 471. It usually runs in the 150's. He is a little sweaty but otherwise ok. He just took his Insulin , his novolin N and Novolin R . Does not have a sliding scale.Call placed to the aircraft inspection record clerk, Dr Ding, who recommended that pt give the Insulins time to [facility]. Pt called back and informed of this. Pt at this time says he feels dizzy and sweaty and not well. He wants to be seen. Recommended that pt be seen. documented in this encounter Plan of Treatment Not on filedocumented as of this encounter Visit Diagnoses Not on filedocumented in this encounter Care Teams Student Finance Advisor Relationship Specialty Start Date End Date aGgandeep Hinojosa MD PCP - General 05/17/12 [facility]5 [place] [address] Vane Zarate Psychiatrist Psychiatry 03/22/12 documented as of this encounter
--- OUTSIDE RECORDS SUMMARY | 2022-03-14 18:46 | XMS_ITS | Encounter Summary ---
:1970 Author Organization [facility] Address [address] [place] [address] Care Team Providers Name Role Phone Gagandeep Michaud MD Primary Care Provider Reason for Visit Reason Comments Refill Encounter Details Date Type Department Care Team Description 12/24/2015 Refill [facility] Gagandeep Michaud MD Refill 1415 [facility] . 1415 [place] [address] [place] [address] [phone] (Wo rk) Social History Tobacco Use Types [...] as of this encounter Nursing Notes User, Aguilaillsiria - 12/24/2015 1:50 PM CDT lisinopril (PRINIVIL, [...] - K: 5mEq/L on 07/18/2015 Powered by [employer], Reference: [id number], 12/24/2015 12:10:49 PM CDT, Pool: MANUEL REFILL ([id number]) INTERN Shayy Hess RN - 12/24/2015 1:50 PM CDT Renewed medication per medication refill protocol. Requested Prescriptions Signed Prescriptions Disp Refills ??? lisinopril (PRINIVIL, ZESTRIL) 5 mg tablet 90 tablet 2 Sig: TAKE 1 TABLET BY MOUTH EVERY DAY Authorizing Provider: GAGANDEEP MICHAUD Ordering User: SHAYY HESS Rx resent to pharmacy per current order by PCP dated 11/04/15. INTERN documented in this encounter Plan of Treatment Not on filedocumented as of this encounter Visit Diagnoses Not on filedocumented in this encounter Care Teams Forging Press Operator Relationship Specialty Start Date End Date Gagandeep Michaud MD PCP - General 05/17/12 47[address] [facility] [place] [address] Vane Zarate Psychiatrist Psychiatry 03/22/12 documented as of this encounter
--- OUTSIDE RECORDS SUMMARY | 2022-03-14 18:46 | XMS_ITS | Encounter Summary ---
:1970 Author Organization [facility] Address [address] [place] [address] Care Team Providers Name Role Phone Gagandeep Hinojosa MD Primary Care Provider Reason for Visit Reason Comments Prior Authorization Request Encounter Details Date Type Department Care Team Description 07/31/2015 Telephone [place] [facility] Gagandeep Hinojosa Au thorization [facility] MD Joanne Request [address] [facility] . [address] [place] [address] [address] [phone] [place] [phone] Social History Tobacco Use Types Packs/Day Years Used Date Smoking Tobacco: Never Assessed Sex Assigned at Date Recorded Not on file documented as of this encounter Nursing Notes Haley Smith LPN - 08/25/2015 11:20 AM CDT Marco Antonio, has this issue been checked into? SH REPAIRER Gagandeep Hinojosa MD - 08/05/2015 10:09 AM CDT All of these insulins are tier 3 costs. Please call pharmacy. How much would these cost the patient? IT Marco Antonio Malcolm MA - 07/31/2015 3:30 PM CDT PRIOR AUTHORIZATION OR CHANGE MEDICATIONS? Comment: 30 day supply provided, med not covered after Pharmacy Name: [facility] Fax# or Address: [phone] Clinician Name: Ashish Drug Name/Strength: Novolin R 100unit per mL Sig: Inject 76 Units subcutaneously 2 times daily (before meals). BREAKFAST AND DINNER Formulary Alternative: See list in providers inbasket Insurance Carrier: [employer] Would you like to switch pt to formulary alternative (see list in your inbasket) or start PA for Novolin? documented in this encounter Plan of Treatment Not on filedocumented as of this encounter Visit Diagnoses Not on filedocumented in this encounter Care Teams Gold Miner Blasting Relationship Specialty Start Date End Date Gagandeep Hinojosa MD PCP - General 05/17/12 [address] [place] [place] [address] Vane Zarate Psychiatrist Psychiatry 03/22/12 documented as of this encounter
--- OUTSIDE RECORDS SUMMARY | 2022-03-14 18:46 | XMS_ITS | Encounter Summary ---
:1970 Author Organization [facility] Address [address] [place] [address] Care Team Providers Name Role Phone Gagandeep Hinojosa MD Primary Care Provider Encounter Details Date Type Department Care Team Description 10/02/2015 Notes/Orders [place] [facility] Gagandeep Hinojosa MD 1415 [facility] . 1415 [facility] [place] [address] [place] [address] [phone] (Wo rk) Social History Tobacco Use Types Packs/Day Years Used Date Smoking Tobacco: Never Assessed Sex Assigned at Date Recorded Not on file documented as of this encounter Miscellaneous Notes Letter - Gagandeep Hinojosa MD - 10/02/2015 12:00 AM CDT 10/02/2015 Timur Krishnamurthy [address] [place] [address] : 1970 Dear Timur: I am contacting you with a reminder that it is time for your diabetes visit , please call [phone] to schedule your visit due in September. [...] You can schedule your lab appointment at [phone]. Please continue to take your medications as prescribed. We look forward to seeing you again. Gagandeep Hinojosa MD SILK HANGER documented in this encounter Plan of Treatment Not on filedocumented as of this encounter Visit Diagnoses Not on filedocumented in this encounter Care Teams Director Stars Relationship Specialty Start Date End Date Gagandeep Hinojosa MD PCP - General 05/17/12 [facility]5 [facility] [place] [address] Vane Zarate Psychiatrist Psychiatry 03/22/12 documented as of this encounter
--- OUTSIDE RECORDS SUMMARY | 2022-03-14 18:46 | XMS_ITS | Encounter Summary ---
:1970 Author Organization [facility] Address [address] [place] [address] Care Team Providers Name Role Phone Gagandeep Hinojosa MD Primary Care Provider Reason for Visit Reason Comments Diabetes Encounter Details Date Type Department Care Team Description 03/27/2015 Office Visit Gagandeep Storm Type 2 d iabetes mellitus, uncontrolled (Primary Dx); Romario Rubio MD Encounter for immunization; [address] . 1415 [facility] Microalbuminuria; [place] [address] Ave snf current use of insulin; [phone] [place], [place] [address] Long-term insulin use in type 2 diabetes ; [phone] Essential hyper tension; (Work) Hyperlipidemia; Tobacco u se disorder; Non morbid obes ity due to excess calories Social History Tobacco Use Types Packs/Day Years Used Date Smoking Tobacco: Never Assessed Sex Assigned at Date Recorded Not on file documented as of this encounter Last Filed Vital Signs Vital Sign Reading Time Taken Comments Blood Pressure 132/86 03/27/2015 2:05 PM BITUMEN PLANT OPERATOR Pulse 72 03/27/2015 2:05 PM BITUMEN PLANT OPERATOR Temperature - - Respiratory Rate - - Oxygen Saturation - - Inhaled Oxygen Concentration - - Weight 104.3 kg (230 lb) 03/27/2015 2:05 PM BITUMEN PLANT OPERATOR Height - - Body Mass Index [...] without mention of complication, uncontrolled (HRC)E11.65 250.02 Fluarix Influenza QIV (36+ mos) OPTOMETRY [...] UMAR: 3 months Aspirin: yes Tobacco: yes MEN PLANT OPERATOR documented in this encounter Plan of Treatment Not on filedocumented as of this encounter Visit Diagnoses Diagnosis Type 2 diabetes mellitus, uncontrolled - Primary Type II or unspecified type diabetes jasen litus without mention of complication, uncontrolled Encounter for immunization Need for other specified prophylactic va ccination against single bacterial disease Microalbuminuria Proteinuria snf current use of insulin (HRC) Encounter [...] (HRC) documented in this encounter Care Teams Plate Fitter Relationship Specialty Start Date End Date Gagandeep Hinojosa MD PCP - General 05/17/12 [address] [place] [address] Vane Zarate Psychiatrist Psychiatry 03/22/12 documented as of this encounter
--- OUTSIDE RECORDS SUMMARY | 2022-03-14 18:46 | XMS_ITS | Encounter Summary ---
:1970 Author Organization [facility] Address [address] [place] [address] Care Team Providers Name Role Phone Gagandeep Hinojosa MD Primary Care Provider Reason for Visit Reason Onset Date Comments Lab Orders Needed 02/23/2016 Encounter Details Date Type Department Care Team Description 02/23/2016 Telephone [facility] Gagandeep Hinojosa, Lab Orders Needed [facility] [facility] . [place] [address] 1415 [facility] [phone] [place] [address] (Wo rk) Social [...] Urine Random (UMAR) (02/24/2016 11:10 AM CDT) [facility] gist Method Time Signature Microalbumin 114.2 mg/L PN SOFT Urine U Creat Random 198 mg/dL PN SOFT Microalbumin/Crea 57.7 (H) 0.0 - PN SOFT tinine Ratio 30.0 Specimen Anatomical Collection Method Collection Time Receive d Time (Source) Location / / Volume Laterality Urine specimen 02/24/2016 11:10 6 2:50 (specimen) AM CDT PM CDT Narrative PN SOFT - 02/24/2016 4:26 PM CDT Performed at [facility], [address] [place] [address] CLIA number [id number] Gagandeep Hinojosa MD LAB_1 Performing Organization Address City/State/ZIP Code Phon e Number PN SOFT [address] [place] [address] documented in this encounter Visit Diagnoses Diagnosis Uncontrolled type 2 diabetes mellitus wi th diabetic polyneuropathy, with long-term current use of insulin - Primary Uncontrolled type 2 diabetes mellitus wi th diabetic polyneuropathy, with long-term current use of insulin Nonspecific abnormal results of liver fu nction study documented in this encounter Care Teams Special Crimes Investigator Relationship Specialty Start Date End Date Gagandeep Hinojosa MD PCP - General 05/17/12 [address] [facility] [place] [address] Vane Zarate Psychiatrist Psychiatry 03/22/12 documented as of this encounter
--- OUTSIDE RECORDS SUMMARY | 2022-03-14 18:46 | XMS_ITS | Encounter Summary ---
:1970 Author Organization [facility] Address [address] [place] [address] Care Team Providers Name Role Phone Gagandeep Hinojosa MD Primary Care Provider Reason for Visit Reason Comments NUMBNESS Neck Pain Encounter Details Date Type Department Care Team Description 07/09/2015 Nurse Triage [facility] Gagandeep Hinojosa, SHASHANK ESS; Neck Pain Medicine 1415 [facility] . 1415 [facility] [place] [address] [place] [address] [phone] (Wo rk) Social History Tobacco Use Types Packs/Day Years Used Date Smoking Tobacco: Never Assessed Sex Assigned at Date Recorded Not on file documented as of this encounter Nursing Notes Cordelia Leyva RN - 07/09/2015 9:44 AM CDT Protocol: NECK PAIN OR [id number] Affirmative: Neck pain or stiffness Disposition of [...] filedocumented in this encounter Care Teams Portable Track Crew Chief Relationship Specialty Start Date End Date Gagandeep Hinojosa MD PCP - General 05/17/[address] [place], [place] [address] [address] Vane Zarate Psychiatrist Psychiatry 03/22/12 documented as of this encounter
--- OUTSIDE RECORDS SUMMARY | 2022-03-14 18:46 | XMS_ITS | Encounter Summary ---
:1970 Author Organization [facility] Address [address] [place] [address] Care Team Providers Name Role Phone Gagandeep Hinojosa MD Primary Care Provider Encounter Details Date Type Department Care Team Description 06/10/2015 Notes/Orders [facility] Gagandeep Hinojosa MD 1415 [facility] . 1415 [facility] [place] [address] [place] [address] [phone] (Wo rk) Social History Tobacco Use Types Packs/Day Years Used Date Smoking Tobacco: Never Assessed Sex Assigned at Date Recorded Not on file documented as of this encounter Miscellaneous Notes Letter - Gagandeep Hinojosa MD - 06/10/2015 12:00 AM CST 06/10/2015 Timur Krishnamurthy [address] [place] [address] : 1970 Dear Timur: I am contacting you with a reminder that it is time for your diabetes visit , please call [phone] to schedule your visit due in June. [...] You can schedule your lab appointment at [phone]. Please continue to take your medications as prescribed. We look forward to seeing you again. Gagandeep Hinojosa MD CH LINER documented in this encounter Plan of Treatment Not on filedocumented as of this encounter Visit Diagnoses Not on filedocumented in this encounter Care Teams Business Management Consultant Relationship Specialty Start Date End Date Gagandeep Hinojosa MD PCP - General 05/17/[address] [place], [place] [address] [address] Vane Zarate Psychiatrist Psychiatry 03/22/12 documented as of this encounter
--- OUTSIDE RECORDS SUMMARY | 2022-03-14 18:47 | XMS_ITS | Encounter Summary ---
:1970 Author Organization [facility] Address [address] [place] [address] Care Team Providers Name Role Phone Gagandeep Hinojosa MD Primary Care Provider Reason for Visit Reason Comments UPDATE Encounter Details Date Type Department Care Team Description 01/17/2014 Telephone [facility] Vanessa Ram PA-C UPDATE 1515 [facility] . [address] [place] [address] [place], [place] [address] (Wo rk) Social History Tobacco Use Types [...] for pt. to call me back . [phone] Vanessa Ram PA-C - 01/17/2014 12:40 PM [...] are still elevated since he was in [place] when they were 1274. Further control of [...] filedocumented in this encounter Care Teams Product Specialist Relationship Specialty Start Date End Date Gagandeep Hinojosa MD PCP - General 05/17/12 1415 [facility] [place] [address] Vane Zarate Psychiatrist Psychiatry 03/22/12 documented as of this encounter
--- OUTSIDE RECORDS SUMMARY | 2022-03-14 18:47 | XMS_ITS | Encounter Summary ---
:1970 Author Organization [facility] Address [address] [place] [address] Care Team Providers Name Role Phone Gagandeep Hinojosa MD Primary Care Provider Reason for Visit Reason Comments Diabetes Encounter Details Date Type Department Care Team Description 08/22/2014 Office Visit Gagandeep Storm Type II or unspecified type diabetes mellitus without mention of complication, uncontrolled (Primary Dx); Romario Rubio MD Tobacco use disorder; [address] 1415 [facility] Obesity, unspecified; [place] [id number] Av ASHD (arteriosclerotic heart disease) [phone] [place] [address] Social History Tobacco Use Types [...] atherosclerosis of unspecified type of vessel, grand traverse or graft documented in this encounter Care Teams Used Car Make Ready Worker Relationship Specialty Start Date End Date Gagandeep Hinojosa MD PCP - General 05/17/12 1415 [facility] [place] [address] Vane Zarate Psychiatrist Psychiatry 03/22/12 documented as of this encounter
--- OUTSIDE RECORDS SUMMARY | 2022-03-14 18:47 | XMS_ITS | Encounter Summary ---
:1970 Author Organization [facility] Address [address] [place] [address] Care Team Providers Name Role Phone Gagandeep Hinojosa MD Primary Care Provider Encounter Details Date Type Department Care Team Description 12/09/2014 Lab Visit [place] Laboratory Type II or unspecified type 1415 [facility] . diabetes mellitus without [place] [address] mention of complication, uncontrolled Social History Tobacco [...] - 12/09/2014 1:49 PM CDT Performed at [facility], 1415 [facility], [place] [address] Gagandeep Hinojosa MD LAB_1 Performing Organization Address City/[facility] Phon e Number HP CONVERSION (ABNORMAL) HEMOGLOBIN A1C, RAPID (12/09/2014 1:57 PM CDT) Analysis Performed At [facility] Time Signature Hemoglobin A1C 9.3 (H) [...] - 12/09/2014 2:11 PM CDT Performed at [facility], [address] [place] [address] Gagandeep Hinojosa MD LAB_1 Performing Organization Address [facility] Phon e Number HP CONVERSION documented in this encounter Visit Diagnoses Diagnosis Type II or unspecified type diabetes jasen litus without mention of complication, uncontrolled documented in this encounter Care Teams Prototype Technician Relationship Specialty Start Date End Date Gagandeep Hinojosa MD PCP - General 05/17/[address] [place] [address] Vane Zarate Psychiatrsamantha Psychiatry 03/22/12 documented as of this encounter
--- OUTSIDE RECORDS SUMMARY | 2022-03-14 18:47 | XMS_ITS | Encounter Summary ---
:1970 Author Organization [facility] Address [address] [place] [address] Care Team Providers Name Role Phone Gagandeep Hinojosa MD Primary Care Provider Reason for Visit Reason Comments Missed Appointment Encounter Details Date Type Department Care Team Description 01/03/2014 Telephone [facility] Vanessa Ram PA-C Missed Appointment 1515 [facility] . [address] [facility] [place] [address] [place], [place] [phone] [phone] (Wo rk) Social History Tobacco Use Types [...] on filedocumented in this encounter Care Teams Collaborating Supervising Physician Relationship Specialty Start Date End Date Gagandeep Hinojosa MD PCP - General 05/17/12 1415 [place], [place] [address] Vane Zarate Psychiatrist Psychiatry 03/22/12 documented as of this encounter
--- OUTSIDE RECORDS SUMMARY | 2022-03-14 18:47 | XMS_ITS | Encounter Summary ---
:1970 Author Organization [facility] Address [address] [place] [address] Care Team Providers Name Role Phone Gagandeep Hinojosa MD Primary Care Provider Encounter Details Date Type Department Care Team Description 12/17/2014 [facility] G[facility]ep Hinoj[facility] MD 1415 [facility] . [address] [facility] [place] [address] [place] [address] [phone] (Wo rk) Social History Tobacco Use Types Packs/Day Years Used Date Smoking Tobacco: Never Assessed Sex Assigned at Date Recorded Not on file documented as of this encounter Plan of Treatment Not on filedocumented as of this encounter Visit Diagnoses Not on filedocumented in this encounter Care Teams Mechanical Car Checker Relationship Specialty Start Date End Date Gagandeep Hinojosa MD PCP - General 05/17/12 1415 [place] [address] Vane Zarate Psychiatrsamantha Psychiatry 03/22/12 documented as of this encounter
--- OUTSIDE RECORDS SUMMARY | 2022-03-14 18:47 | XMS_ITS | Encounter Summary ---
:1970 Author Organization [facility] Address [address] [place] [address] Care Team Providers Name Role Phone Gagandeep Hinojosa MD Primary Care Provider Reason for Visit Reason Comments Refill Encounter Details Date Type Department Care Team Description 01/22/2015 Refill [facility] Vanessa Ram PA-C Refill [address] [place] [address] [place], [place] [address] (Wo rk) Social History Tobacco Use Types Packs/Day Years Used Date Smoking Tobacco: Never Assessed Sex Assigned at Date Recorded Not on file documented as of this encounter Nursing Notes Yadira Mane, RN - 01/22/2015 2:39 PM CDT Pt given a 90 supply in November with 1 refill. Spoke with pharmacy. Does have a refill available. Will not refill at this time. Yadira Mane RN - 01/22/2015 2:24 PM CDT LV- 02/14/14 FV- none Will refill x 1 per standing orders. documented in this encounter Plan of Treatment Not on filedocumented as of this encounter Visit Diagnoses Not on filedocumented in this encounter Care Teams Power Station Operator Relationship Specialty Start Date End Date Gagandeep Hinojosa MD PCP - General 05/17/12 [address] [facility] [place] [address] Vane Zarate Psychiatrist Psychiatry 03/22/12 documented as of this encounter
--- OUTSIDE RECORDS SUMMARY | 2022-03-14 18:47 | XMS_ITS | Encounter Summary ---
:1970 Author Organization [facility] Address [address] [place] [address] Care Team Providers Name Role Phone Gagandeep Michaud MD Primary Care Provider Reason for Visit Reason Comments Refill Encounter Details Date Type Department Care Team Description 07/04/2014 Refill [facility] Gagandeep Michaud MD Refill 1415 [facility] . [address] [place] [address] [place], [place] [address] (Wo rk) Social History Tobacco Use Types Packs/Day Years Used Date Smoking Tobacco: Never Assessed Sex Assigned at Date Recorded Not on file documented as of this encounter Nursing Notes User, Shani - 07/04/2014 3:31 PM CDT metFORMIN (GLUCOPHAGE) [...] - HBA1C: 11.0% on 05/21/2014 Powered by [employer], Reference: [id number], 07/04/2014 2:47:54 PM CDT, Pool: MANUEL REFILL ([id number]) Alaina Garduno RN - 07/04/2014 3:31 PM [...] on filedocumented in this encounter Care Teams Ride Operator Relationship Specialty Start Date End Date Gagandeep Michaud MD PCP - General 05/17/[address] [place] [address] [place] [address] Vane Zarate Psychiatrist Psychiatry 03/22/12 documented as of this encounter
--- OUTSIDE RECORDS SUMMARY | 2022-03-14 18:47 | XMS_ITS | Encounter Summary ---
:1970 Author Organization [facility] Address [address] [place] [address] Care Team Providers Name Role Phone Gagandeep Hinojosa MD Primary Care Provider Reason for Visit Reason Comments Diabetes Encounter Details Date Type Department Care Team Description 12/09/2014 Office Visit Gagandeep Storm Type II or unspecified type diabetes mellitus without mention of complication, uncontrolled (Primary Dx); MD JF LuongD (arteriosclerotic heart disease); [address] 1415 [facility] [place] middle or intermediate school principal current use of ins ulin; [place] Vigil [address] [address] Unspecified essential hypertension; [phone] KATIANA VIGIL [address] Other and unspecified hyperlipidemia; [phone] Tobacco use dis order (Work) Social History [...] Coronary atherosclerosis of unspecified type of vessel, [place] or graft middle or intermediate school principal current use of insulin (HRC) Encounter for long-term (current) use of insulin Unspecified essential hypertension (HRC) Unspecified essential hypertension Other and unspecified hyperlipidemia (HR C) Other and unspecified hyperlipidemia Tobacco use disorder (HRC) Tobacco use disorder documented in this encounter Care Teams Principal Bioinformatics Specialist Relationship Specialty Start Date End Date Gagandeep Hinojosa MD PCP - General 05/17/12 1415 [facility] [place] Gerber [address] Vane Zarate Psychiatrist Psychiatry 03/22/12 documented as of this encounter
--- OUTSIDE RECORDS SUMMARY | 2022-03-14 18:47 | XMS_ITS | Encounter Summary ---
:1970 Author Organization [facility] Address [address] [address] Care Team Providers Name Role Phone Gagandeep Michaud MD Primary Care Provider Reason for Visit Reason Comments Follow-up Encounter Details Date Type Department Care Team Description 01/09/2014 Office Visit [facility] Vanessa Ram, Coronary atherosclerosis of unspecified type of vessel, [place] or graft (Primary Dx); [address] ASHFarhan (arteriosclerotic heart disease); [address] [place], old; [place] [address] Blvd Hyperlipidemia LDL goal < 70; [phone] [place], [place] Type II or unspecified type diabetes mellitus without mention of complication, uncontrolled; [address] Tobacco use disorder; [phone] Hypertriglyceri demia; (Work) Tachycardia, unspecified Social History [...] in this encounter Patient Instructions Patient InstructionsVanessa Ram, CORNELIUS - 01/09/2014 3:09 PM CDT 1. When you finish simvastatin, start atorvastatin 80 mg daily. Check labs in 6 weeks. Please contact the lab at [phone] to schedule a lab appointment at [facility] after a 12 hour fast mid May. They will have the lab orders when you get there, so you are not responsible to bring a lab slip. 2. Call Keri FINCH [phone] if you develop abdominal pain, nausea or [...] Ram PA-C Service: (none) Author Type: Physician Sidehand Filed: 01/17/14 1538 Note Time: 01/10/14 1053 Status: Signed Assisted Living Nursing Director: Vanessa Ram PA-C (Physician Sidehand) NAME: SHARLENE VARNER MR#: [id number] CSN: [id number] AUTHENTICATING CLINICIAN: Vanessa Ram PA-C CONFIRM #: [id number] LOC: 3205 CLINIC PROGRESS NOTE DATE OF VISIT: 01/09/2014 : 1970 CHIEF COMPLAINT: Coronary artery disease. Mr. Varner is a pleasant, 43-year-old gentleman who presents to the [place] [facility]. He was recently discharged from [facility] on December 19, after presenting withprolonged [...] On his angiogram in 2012, he had hdyy-im-lcgitnrq diffuse disease, specifically in the distal RCA [...] free samples. MEDICATIONS: Reviewed and updated in [employer]. Cardiac medications include aspirin 81 mg daily, simvastatin 80 mg daily, currently Coreg 6.25 mg daily, lisinopril 5 mg daily, omega-3 two capsules twice a day and Yqyxxw65 mg p.r.n. ADVERSE DRUG REACTIONS/ALLERGIES: Reviewed and updated in [employer]. REVIEW OF SYSTEMS: A complete 12-point review [...] strong pedal pulses. Recent laboratory data at [place] on December 19: White blood cells 6.2, [...] of 60%. Normal left ventricular size with torf-aw-arohvcmb concentric left ventricular hypertrophy. No regional wall [...] a bare-metal stent in April 2011. b. Vhyu-vc-jouvgzzm diffuse nonobstructive distal disease on coronary angiogram on October 27, 2012. Thepreviously deployed stent in the posterior descending branch of the right coronary artery was patent, with wfjj-iv-jmcczlpl in-stent restenosis. This did not appear to [...] goal. 3. Hyperlipidemia. We reviewed the new [place] [employer] guidelines that outlined that withhis [...] to do that. CC: VALERI NORRIS MD [address] [place] [address] GAGANDEEP MICHAUD MD [address] [place] [id number] LJR:MEDWendy C: CONFIRM #: [id number] documented in this encounter Plan of Treatment Not on filedocumented as of this encounter Visit Diagnoses Diagnosis Coronary atherosclerosis of unspecified type of vessel, [place] or graft (HRC) - Primary Coronary atherosclerosis of unspecified type of vessel, [place] or graft ASHD (arteriosclerotic heart disease) (H RC) Coronary atherosclerosis of unspecified type of vessel, [place] or graft [place], old (HRC) Old myocardial infarction Hyperlipidemia LDL goal < 70 (HRC) Other and unspecified hyperlipidemia Type II or unspecified type diabetes jasen litus without mention of complication, uncontrolled Tobacco use disorder (HRC) Tobacco use disorder Hypertriglyceridemia (HRC) Pure hyperglyceridemia Tachycardia, unspecified documented in this encounter Care Teams Public Affairs Manager Relationship Specialty Start Date End Date Gagandeep Michaud MD PCP - General 05/17/12 1415 [facility] [place] [address] Vane Zarate Psychiatrist Psychiatry 03/22/12 documented as of this encounter
--- OUTSIDE RECORDS SUMMARY | 2022-03-14 18:47 | XMS_ITS | Encounter Summary ---
:1970 Author Organization [facility] Address [address] [place] [address] Care Team Providers Name Role Phone Gagandeep Hinojosa MD Primary Care Provider Encounter Details Date Type Department Care Team Description 05/27/2014 [facility] Gag[facility]ep Hinojosa MD 1415 [facility] . 1415 [facility] [place] [address] [place] [address] [phone] (Wo rk) Social History Tobacco Use Types Packs/Day Years Used Date Smoking Tobacco: Never Assessed Sex Assigned at Date Recorded Not on file documented as of this encounter Plan of Treatment Not on filedocumented as of this encounter Visit Diagnoses Not on filedocumented in this encounter Care Teams Skin Washer Relationship Specialty Start Date End Date Gagandeep Hinojosa MD PCP - General 05/17/12 1415 [place] [address] Vane Zarate Psychiatrsamantha Psychiatry 03/22/12 documented as of this encounter
--- OUTSIDE RECORDS SUMMARY | 2022-03-14 18:47 | XMS_ITS | Encounter Summary ---
:1970 Author Organization [facility] Address [address] [place] [address] Care Team Providers Name Role Phone Gagandeep Hinojosa MD Primary Care Provider Reason for Visit Reason Comments Follow-up Encounter Details Date Type Department Care Team Description 02/14/2014 Office Visit [facility] Zoie West, Coronary atherosclerosis of unspecified type of vessel, [place] or graft (Primary Dx); [address] [place], old; [address] [place] Hyperlipidemia LDL goal < 70 ; [place] [address] Blvd Type II or unspecified type diabetes jasen litus without mention of complication, uncontrolled; [phone] [place], [place] Tobacco us e disorder [address] Social History Tobacco Use Types Packs/Day Years [...] documented in this encounter Patient Instructions Patient InstructionsWZoie carrera PA-C - 02/14/2014 1:18 PM CDT No change. Return in one year to see Dr. Greene or Vanessa Ram PA-C. Call sooner if any concerns [phone] Keri FINCH documented in this encounter Progress Notes [facility] [place] PA-C - 02/14/2014 1:33 PM CDT NAME: SHARLENE VARNER MR#: [id number] CSN: [id number] AUTHENTICATING CLINICIAN: Vanessa Ram PA-C CONFIRM #: [id number] LOC: 3205 CLINIC PROGRESS NOTE DATE OF VISIT: 01/09/2014 : 1970 CHIEF COMPLAINT: Coronary artery disease. Mr. Varner is a pleasant, 44-year-old gentleman who presents to the [place] [facility]. He was seen last by Vanessa Ram [...] On his angiogram in 2012, he had chtz-hq-uuuvanhu diffuse disease, specifically inthe distal RCA and [...] 5' 10 (177.8 cm) Wt 231 lb (076994 g) BMI 33.15 kg/m2 Pulsewith my recheck [...] of 60%. Normal left ventricular size with tsup-bp-rmphzqsq concentric left ventricular hypertrophy. No regional wall [...] a bare-metal stent in April 2011. b. Xrzt-il-hlsfugtp diffuse nonobstructive distal disease on coronary angiogram on October 27, 2012. Thepreviously deployed stent in the posterior descending branch of the right coronary artery was patent, with jfbu-to-bkgmsafb in-stent restenosis. This did not appear to [...] Coronary atherosclerosis of unspecified type of vessel, [place] or graft (HRC) - Primary Coronary atherosclerosis of unspecified type of vessel, [place] or graft [place], old (HRC) Old myocardial infarction Hyperlipidemia LDL goal < 70 (HRC) Other and unspecified hyperlipidemia Type II or unspecified type diabetes jasen litus without mention of complication, uncontrolled Tobacco use disorder (HRC) Tobacco use disorder documented in this encounter Care Teams Trade Facilitator Relationship Specialty Start Date End Date Gagandeep Hinojosa MD PCP - General 05/17/12 1415 [place] [address] Vane Zarate Psychiatrsamantha Psychiatry 03/22/12 documented as of this encounter
--- OUTSIDE RECORDS SUMMARY | 2022-03-14 18:47 | XMS_ITS | Encounter Summary ---
:1970 Author Organization [facility] Address [address] [place] [address] Care Team Providers Name Role Phone Gagandeep Hinojosa MD Primary Care Provider Reason for Visit Reason Comments [facility] Phone Visit Encounter Details Date Type Department Care Team Description 03/11/2015 Care Coord Phone Judy Luke R N [facility] Phone Visit Medicine [address] [facility] 14[address] [facility] [place] [address] [place] [address] [phone] Social History Tobacco Use Types Packs/Day Years Used Date Smoking Tobacco: Never Assessed Sex Assigned at Date Recorded Not on file documented as of this encounter Progress Notes Judy Pittman, RN - 03/17/2015 12:29 PM CST Manager Clinical Applications - Phone Call Contact with: Rustam Reason [...] Medicare and reach the Coverage Gap through [employer] and Vianney Huam, however Rustam's income is far over their [...] plan of care and follow up. ER GAS T[employer] ARC documented in this encounter Plan of Treatment Not on filedocumented as of this encounter Visit Diagnoses Diagnosis Complex care coordination - Primary Type 2 diabetes mellitus, uncontrolled Type II or unspecified type diabetes jasen litus without mention of complication, uncontrolled Inadequate community resources documented in this encounter Care Teams Installer Molding And Trim Relationship Specialty Start Date End Date Gagandeep Hinojosa MD PCP - General 05/17/12 4[address] [facility] [place] [address] Vane Zarate Psychiatrist Psychiatry 03/22/12 documented as of this encounter
--- OUTSIDE RECORDS SUMMARY | 2022-03-14 18:47 | XMS_ITS | Encounter Summary ---
:1970 Author Organization [facility] Address [address], [place] [address] Care Team Providers Name Role Phone Gagandeep Hinojosa MD Primary Care Provider Encounter Details Date Type Department Care Team Description 09/18/2014 Hospital Encounter Heart & Vascular Chest pain, unspecified Center Nuclear (Primary Dx) Cardiology [address] [facility] [place] [address] Social History Tobacco Use Types [...] CONVERSION - 09/18/2014 10:10 AM CDT Loading... [facility] [address] [facility] [place] [address] ?? Results STRESS TEST PHARMACOLOGICAL ( (Order [id number]) ? Original Order Diagnosis Diagnosis Chest pain, [...] Result History ??STRESS TEST PHARMACOLOGICAL (Order #[id number]) on 09/18/14 - Order Result History Report. ?? Hard Copy Result Report ??Open Hard Copy Result Report (Order#[id number] - STRESS TEST PHARMACOLOGICAL) ?? STRESS TEST PHARMACOLOGICAL (Accession A [id number]) (Order [id number]) ?Image Documentation: Technologist ?No findings ? Removed from In Basket ??Done By ??Kailash Green DO on 09/23/2014 10: 08 PM ?? Patient Release Status: ?This result is not viewable by the irlanda garcia. ?? Patient Information ??Patient Name Sex ??Timur Krishnamurthy ([id number]) Mal e 1970 ?Room Bed Code Status ??2217 Prior ?? Order STRESS TEST PHARMACOLOGICAL [[id number]] (A ccession [id number]) (Order [id number]) Order Requisition ??STRESS TEST PHARMACOLOGICAL (Order #[id number]) on 09/18/14 ?? Priority and Order Details ??Priority Class ??Routine Hospital Performed ? Quantity ??Ordering Quantity ??1 ?? Order Information ??Date Department Released By Pankaj ambrosio ??09/18/2014 [facility], Order Release Kailash Green DO ?? Order Providers ??Authorizing Provider Encounter Provid er Billing Provider ??Kailash Green None Velasquez Green N ?? Original Order ??Ordered On Ordered By ??TueSeptember 18, 2014 ??6:37 AM [place], St ephaed R ? Associated Diagnoses ?? ICD-9-CM ICD-10-CM ??Chest pain, unspecified chest pain ty pe ?? 786.50 R07.9 ?? Comments ??If 2nd Troponin is normal. No caffein e 24 hours prior to test. NPO 4 hours prior to test. ?? Order CC Information ??Recipient Phone ??Kailash Green DO, [[id number]] [phone] ?? Appointments for this Order ??09/18/2014 ??9:00 [...] irlanda garcia. ?? Timur Krishnamurthy (MR # [id number]) P arnel at 09/24/14 10:09 AM Kailash Green DO PN CARDIAC SERVICES ORDERABL ES Performing Organization Address City/State/ZIP Code Phon e Number HP CONVERSION documented in this encounter Visit Diagnoses Diagnosis Chest pain, unspecified - Primary documented in this encounter Care Teams Medical Program Specialist Relationship Specialty Start Date End Date Gagandeep Hinojosa MD PCP - General 05/17/12 1415 [place] [address] Vane Zarate Psychiatrsamantha Psychiatry 03/22/12 documented as of this encounter
--- OUTSIDE RECORDS SUMMARY | 2022-03-14 18:47 | XMS_ITS | Encounter Summary ---
:1970 Author Organization [facility] Address [address] [place] [address] Care Team Providers Name Role Phone Gagandeep Hinojosa MD Primary Care Provider Encounter Details Date Type Department Care Team Description 11/21/2013 Notes/Orders Heart & Vascular Juan Daniel Caba Decre [facility] Cardiology ejection fraction [address] (Primary Dx) [place] [phone] (Wo rk) Social History Tobacco Use Types [...] a message to call back - ext [phone] Jacqueline Vizcaino - 11/23/2013 12:51 PM CDT left message to call us back. documented in this encounter Plan of Treatment Not on filedocumented as of this encounter Visit Diagnoses Diagnosis Decreased cardiac ejection fraction - Pr imary documented in this encounter Care Teams Vendor Manager Relationship Specialty Start Date End Date Gagandeep Hinojosa MD PCP - General 05/17/12 [address] [place] [address] Vane Zarate Psychiatrsamantha Psychiatry 03/22/12 documented as of this encounter
--- OUTSIDE RECORDS SUMMARY | 2022-03-14 18:47 | XMS_ITS | Encounter Summary ---
:1970 Author Organization [facility] Address [address] [place] [address] Care Team Providers Name Role Phone Gagandeep Hinojosa MD Primary Care Provider Encounter Details Date Type Department Care Team Description 11/21/2013 Hospital Encounter Heart & Vascular Chest pain, unspecified (Primary Dx); Center Nuclear ASHD (arterio sclerotic heart disease) Cardiology [facility] [place] [address] Social History Tobacco Use Types [...] of unspecified type of vessel, [place] or graft documented in this encounter Care Teams Block And Case Maker Relationship Specialty Start Date End Date Gagandeep Hinojosa MD PCP - General 05/17/12 1415 [place] [address] Vane Zarate Psychiatrsamantha Psychiatry 03/22/12 documented as of this encounter
--- OUTSIDE RECORDS SUMMARY | 2022-03-14 18:47 | XMS_ITS | Encounter Summary ---
:1970 Author Organization [facility] Address [address] [place] [address] Care Team Providers Name Role Phone Gagandeep Hinojosa MD Primary Care Provider Encounter Details Date Type Department Care Team Description 11/27/2013 Hospital Encounter Heart & Vascular Other nonspecific Center Echocardiogra m abnormal cardiovascular [address] system function study [place], [place] (Primar y Dx) [phone] Social History Tobacco Use Types Packs/Day Years [...] documented in this encounter Care Teams Assistant Cook Relationship Specialty Start Date End Date Gagandeep Hinojosa MD PCP - General 05/17/[address] [place] [address] Vane Zarate Psychiatrist Psychiatry 03/22/12 documented as of this encounter
--- OUTSIDE RECORDS SUMMARY | 2022-03-14 18:47 | XMS_ITS | Encounter Summary ---
:1970 Author Organization [facility] Address [address] [place] [address] Care Team Providers Name Role Phone Gagandeep Hinojosa MD Primary Care Provider Reason for Visit Reason Comments Other Encounter Details Date Type Department Care Team Description 11/22/2013 Telephone [facility] Gagandeep Hinojosa MD Other 1415 [facility] . 1415 [facility] [address] [place] [address] [phone] (Wo rk) Social History Tobacco Use Types Packs/Day Years Used Date Smoking Tobacco: Never Assessed Sex Assigned at Date Recorded Not on file documented as of this encounter Nursing Notes Jackeline Al - 11/22/2013 11:47 AM CDT Timur is scheduled at [facility] on November 27 at 3:00. Maximilian Ag [...] on filedocumented in this encounter Care Teams Miller Head Relationship Specialty Start Date End Date Gagandeep Hinojosa MD PCP - General 05/17/[address] [place], [place] [address] [address] Vane Zarate Psychiatrist Psychiatry 03/22/12 documented as of this encounter
--- OUTSIDE RECORDS SUMMARY | 2022-03-14 18:47 | XMS_ITS | Encounter Summary ---
:1970 Author Organization [facility] Address [address] [place] [address] Care Team Providers Name Role Phone Gagandeep Hinojosa MD Primary Care Provider Reason for Visit Reason Comments Diabetes Encounter Details Date Type Department Care Team Description 05/14/2014 Notes/Orders [facility] Gagandeep Hinojosa MD 1415 [facility] . 1415 [facility] [place] [address] [place] [address] [phone] (Wo rk) Social History Tobacco Use Types Packs/Day Years Used Date Smoking Tobacco: Never Assessed Sex Assigned at Date Recorded Not on file documented as of this encounter Miscellaneous Notes Letter - Gagandeep Hinojosa MD - 05/14/2014 12:00 AM CST 05/14/2014 Timur Krishnamurthy [address] [place] [address] : 1970 Dear Timur: I am contacting you with a reminder that it is time for your diabetes visit , please call [phone] to schedule your visit due in April. [...] You can schedule your lab appointment at [phone]. Please continue to take your medications as prescribed. We look forward to seeing you again. Gagandeep Hinojosa MD T FINISHER documented in this encounter Plan of Treatment Not on filedocumented as of this encounter Visit Diagnoses Not on filedocumented in this encounter Care Teams Sewing Machine Assembler Relationship Specialty Start Date End Date Gagandeep Hinojosa MD PCP - General 05/17/12 1415 [facility] [place] [address] Vane Zarate Psychiatrist Psychiatry 03/22/12 documented as of this encounter
--- OUTSIDE RECORDS SUMMARY | 2022-03-14 18:47 | XMS_ITS | Encounter Summary ---
:1970 Author Organization [facility] Address [address] [place] [address] Care Team Providers Name Role Phone Gagandeep Hinojosa MD Primary Care Provider Reason for Visit Reason Comments Diabetes Encounter Details Date Type Department Care Team Description 03/13/2014 Notes/Orders [facility] Gagandeep Hinojosa MD 1415 [facility] . 1415 [facility] [place] [address] [place] [address] [phone] (Wo rk) Social History Tobacco Use Types Packs/Day Years Used Date Smoking Tobacco: Never Assessed Sex Assigned at Date Recorded Not on file documented as of this encounter Plan of Treatment Not on filedocumented as of this encounter Visit Diagnoses Not on filedocumented in this encounter Care Teams Desk Pen Set Assembler Relationship Specialty Start Date End Date Gagandeep Hinojosa MD PCP - General 05/17/12 1415 [place] [address] Vane Zarate Psychiatrist Psychiatry 03/22/12 documented as of this encounter
--- OUTSIDE RECORDS SUMMARY | 2022-03-14 18:47 | XMS_ITS | Encounter Summary ---
:1970 Author Organization [facility] Address [address] [place] [address] Care Team Providers Name Role Phone Gagandeep Hinojosa MD Primary Care Provider Encounter Details Date Type Department Care Team Description 11/06/2014 Notes/Orders [facility] Gagandeep Hinojosa MD 1415 [facility] . 1415 [facility] [place] [address] [place] [address] [phone] (Wo rk) Social History Tobacco Use Types Packs/Day Years Used Date Smoking Tobacco: Never Assessed Sex Assigned at Date Recorded Not on file documented as of this encounter Miscellaneous Notes Letter - Gagandeep Hinojosa MD - 11/06/2014 12:00 AM CDT 11/06/2014 Timur Krishnamurthy [address] [place] [address] : 1970 Dear Timur: I am contacting you with a reminder that it is time for your diabetes visit , please call [phone] to schedule your visit due in October. [...] You can schedule your lab appointment at [phone]. Please continue to take your medications as prescribed. We look forward to seeing you again. Gagandeep Hinojosa MD (General) WIRER documented in this encounter Plan of Treatment Not on filedocumented as of this encounter Visit Diagnoses Not on filedocumented in this encounter Care Teams Print Binding Worker Relationship Specialty Start Date End Date Gagandeep Hinojosa MD PCP - General 05/17/[address] [place], [place] [address] [address] Vane Zarate Psychiatrist Psychiatry 03/22/12 documented as of this encounter
--- OUTSIDE RECORDS SUMMARY | 2022-03-14 18:47 | XMS_ITS | Encounter Summary ---
:1970 Author Organization [facility] Address [address] [place] [address] Care Team Providers Name Role Phone Gagandeep Hinojosa MD Primary Care Provider Reason for Visit Reason Comments Diabetes Encounter Details Date Type Department Care Team Description 05/21/2014 Office Visit Gagandeep Storm Type II or unspecified type diabetes mellitus without mention of complication, uncontrolled (Primary Dx); Romario Rubio MD Background diabetic retinopathy; [address] 1415 [facility] continuous churn buttermaker current use of ins ulin; [place] V[place]il [address] [address] Long-term insulin use in type 2 diabetes ; [phone] KAT[place] VIGIL [address] Unspecified essential hypertension; [phone] Other and unspe cified hyperlipidemia; (Work) Tobacco use disorder; Obesity, unspecified Social History Tobacco Use Types Packs/Day Years Used Date Smoking Tobacco: Never Assessed Sex Assigned at Date Recorded Not on file documented as of this encounter Last Filed Vital Signs Vital Sign Reading Time Taken Comments Blood Pressure 118/77 05/21/2014 1:05 PM ACTIVITY AIDE Pulse 94 05/21/2014 1:05 PM ACTIVITY AIDE Temperature - - Respiratory Rate - - Oxygen Saturation - - Inhaled Oxygen Concentration - - Weight 106.6 kg (235 lb) 05/21/2014 1:05 PM ACTIVITY AIDE Height - - Body Mass Index 33.72 [...] A normal value is less than 30. VITY AIDE documented in this encounter Progress Notes Gagandeep [...] UMAR: 3 months Aspirin: yes Tobacco: yes VITY AIDE documented in this encounter Plan of Treatment Not on filedocumented as of this encounter Visit Diagnoses Diagnosis Type II or unspecified type diabetes jasen litus without mention of complication, uncontrolled - Primary Background diabetic retinopathy (HRC) Type II or unspecified type diabetes jasen litus with ophthalmic manifestations, not stated as uncontrolled continuous churn buttermaker current use of insulin [...] unspecified documented in this encounter Care Teams Vamp Creaser Relationship Specialty Start Date End Date Gagandeep Hinojosa MD PCP - General 05/17/[address] [place] [address] [place] Gerber [address] Vane Zarate Psychiatrist Psychiatry 03/22/12 documented as of this encounter
--- OUTSIDE RECORDS SUMMARY | 2022-03-14 18:47 | XMS_ITS | Encounter Summary ---
:1970 Author Organization Formerly [facility] Address [address] [place] [address] Care Team Providers Name Role Phone Gagandeep Hinojosa MD Primary Care Provider Encounter Details Date Type Department Care Team Description 02/18/2015 [facility] MD 1415 [facility] . 1415 [facility] [place] [address] [place] VELAZQUEZ [address] [phone] (Wo rk) Social History Tobacco Use Types Packs/Day Years Used Date Smoking Tobacco: Never Assessed Sex Assigned at Date Recorded Not on file documented as of this encounter Plan of Treatment Not on filedocumented as of this encounter Visit Diagnoses Not on filedocumented in this encounter Care Teams Binder Roller Relationship Specialty Start Date End Date Gagandeep Hinojosa MD PCP - General 05/17/12 1415 [place] [address] Vane Zarate Psychiatrsamantha Psychiatry 03/22/12 documented as of this encounter
--- OUTSIDE RECORDS SUMMARY | 2022-03-14 18:47 | XMS_ITS | Encounter Summary ---
:1970 Author Organization [facility] Address [address] [place] [address] Care Team Providers Name Role Phone Gagandeep Hinojosa MD Primary Care Provider Encounter Details Date Type Department Care Team Description 08/07/2014 Notes/Orders [facility] Gagandeep Hinojosa MD 1415 [facility] . 1415 [facility] [place] [address] [place] [address] [phone] (Wo rk) Social History Tobacco Use Types Packs/Day Years Used Date Smoking Tobacco: Never Assessed Sex Assigned at Date Recorded Not on file documented as of this encounter Miscellaneous Notes Letter - Gagandeep Hinojosa MD - 08/07/2014 12:00 AM CDT 08/07/2014 Timur Krishnamurthy [address] [place] [id number] : 1970 Dear Timur: I am contacting you with a reminder that it is time for your diabetes visit , please call [phone] to schedule your visit due in July. [...] You can schedule your lab appointment at [phone]. Please continue to take your medications as prescribed. We look forward to seeing you again. Gagandeep Hinojosa MD ESSIONAL ATHLETE documented in this encounter Plan of Treatment Not on filedocumented as of this encounter Visit Diagnoses Not on filedocumented in this encounter Care Teams Cash Analyst Relationship Specialty Start Date End Date Gagandeep Hinojosa MD PCP - General 05/17/12 [facility] [place] Gerber [address] Vane Zarate Psychiatrist Psychiatry 03/22/12 documented as of this encounter
--- OUTSIDE RECORDS SUMMARY | 2022-03-14 18:47 | XMS_ITS | Encounter Summary ---
:1970 Author Organization [facility] Address [address] [place] [address] Care Team Providers Name Role Phone Gagandeep Hinojosa MD Primary Care Provider Reason for Visit Reason Comments Refill Encounter Details Date Type Department Care Team Description 02/26/2014 [facility] Maricarmen Ram PA-C Refill Cardiology [address] [place] [address] [place] [address] [phone] Social History Tobacco Use Types Packs/Day Years [...] on filedocumented in this encounter Care Teams Road Equipment Operator Relationship Specialty Start Date End Date Gagandeep Hinojosa MD PCP - General 05/17/12 1415 [facility] [place] [address] Vane Zarate Psychiatrist Psychiatry 03/22/12 documented as of this encounter
--- OUTSIDE RECORDS SUMMARY | 2022-03-14 18:47 | XMS_ITS | Encounter Summary ---
:1970 Author Organization [facility] Address [address] [place] [address] Care Team Providers Name Role Phone Gagandeep Hinojosa MD Primary Care Provider Encounter Details Date Type Department Care Team Description 01/16/2014 Lab Visit [facility] Hypertriglyceridemia; [address] Tachycardia, unspecified [place] Vigil [address] Social History Tobacco Use Types Packs/Day Years [...] Vanessa Ram PA-C LAB_1 Performing Organization Address City/[facility] Code Phon e Number HP CONVERSION Lipase (01/16/2014 10:14 AM CDT) athologist Signature Lipase 47 5 - 70 U/L HP CONVERSION Specimen Anatomical Collection Method Collection Time Receive d Time (Source) Location / / Volume Laterality 01/16/2014 10:14 01/16/2014 AM CDT 11:49 AM CDT Narrative HP CONVERSION - 01/16/2014 2:11 PM CDT Performed at [facility], [address] [place] [address] Vanessa Ram PA-C LAB_1 Performing Organization Address [facility] Phon e Number HP CONVERSION Amylase (01/16/2014 10:14 AM CDT) athologist Signature Amylase Serum 48 25 - 115 HP CONVERSION U/L Specimen Anatomical Collection Method Collection Time Receive d Time (Source) Location / / Volume Laterality 01/16/2014 10:14 01/16/2014 AM CDT 11:49 AM CDT Narrative HP CONVERSION - 01/16/2014 2:11 PM CDT Performed at [facility], [address] [place] [address] Vanessa Ram PA-C LAB_1 Performing Organization Address [facility] Phon e Number HP CONVERSION (ABNORMAL) Triglycerides (> 12 Hr. Fast) (01/16/2014 10:14 AM CDT) athologist Signature Triglycerides 614 (H) 0 - 149 HP CONVERSION mg/dL Specimen Anatomical Collection Method Collection Time Receive d Time (Source) Location / / Volume Laterality 01/16/2014 10:14 01/16/2014 AM CDT 11:49 AM CDT Narrative HP CONVERSION - 01/16/2014 2:11 PM CDT Performed at [facility], [address] [place] [address] Vanessa Ram PA-C LAB_1 Performing Organization Address [facility] Phon e Number HP CONVERSION documented in this encounter Visit Diagnoses Diagnosis Hypertriglyceridemia (HRC) Pure hyperglyceridemia Tachycardia, unspecified documented in this encounter Care Teams Tab Cutting Machine Operator Relationship Specialty Start Date End Date Gagandeep Hinojosa MD PCP - General 05/17/12 1415 [facility] [place] [address] Vane Zarate Psychiatrist Psychiatry 03/22/12 documented as of this encounter
--- OUTSIDE RECORDS SUMMARY | 2022-03-14 18:47 | XMS_ITS | Encounter Summary ---
:1970 Author Organization [facility] Address [address], [place] [address] Care Team Providers Name Role Phone Gagandeep Hinojosa MD Primary Care Provider Reason for Visit Reason Comments Refill Encounter Details Date Type Department Care Team Description 11/27/2014 Refill [facility] Vanessa Ram PA-C Refill 1515 [facility] . [address] [place] [address] [place] [address] [phone] (Wo rk) Social History Tobacco Use Types [...] on filedocumented in this encounter Care Teams Brokerage Branch Manager Relationship Specialty Start Date End Date Gagandeep Hinojosa MD PCP - General 05/17/12 1415 [place], [place] [address] Vane Zarate Psychiatrsamantha Psychiatry 03/22/12 documented as of this encounter
--- OUTSIDE RECORDS SUMMARY | 2022-03-14 18:47 | XMS_ITS | Encounter Summary ---
:1970 Author [facility] Address [address] [place] [address] Care Team Providers Name Role Phone Gagandeep Hinojosa MD Primary Care Provider Encounter Details Date Type Department Care Team Description 08/22/2014 Lab Visit [facility] Type II or unspecified type 1415 [facility] . diabetes mellitus without [place] Vigil [address] mention of complication, uncontrolled Social History Tobacco [...] (ABNORMAL) Microalb/Creat Ratio (08/22/2014 2:05 PM CDT) Patholo gist Method Time Signature Microalbumin 42.5 mg/L HP CONVERSION Urine U Creat Random 140 mg/dL HP CONVERSION Microalbumin/Cre 30.4 (H) 0.0 - HP CONVERSION atinine Ratio 30.0 Specimen Anatomical Collection Method Collection Time Receive d Time (Source) Location / / Volume Laterality 08/22/2014 2:05 PM 5 7:38 CDT PM CDT Narrative HP CONVERSION - 08/22/2014 8:39 PM CDT Performed at [facility], [address] [place] [address] Gagandeep Hinojosa MD LAB_1 Performing Organization Address [facility] Phon e Number HP CONVERSION (ABNORMAL) HEMOGLOBIN A1C, RAPID (08/22/2014 1:13 PM CDT) Analysis Performed At [facility] Time Signature Hemoglobin A1C 8.9 (H) [...] - 08/22/2014 1:24 PM CDT Performed at [address] [address] Gagandeep Hinojosa MD LAB_1 Performing Organization Address [facility] Phon e Number HP CONVERSION documented in this encounter Visit Diagnoses Diagnosis Type II or unspecified type diabetes jasen litus without mention of complication, uncontrolled documented in this encounter Care Teams Press Leader Relationship Specialty Start Date End Date Gagandeep Hinojosa MD PCP - General 05/17/[address] [place] [address] Vane Zarate Psychiatrsamantha Psychiatry 03/22/12 documented as of this encounter
--- OUTSIDE RECORDS SUMMARY | 2022-03-14 18:47 | XMS_ITS | Encounter Summary ---
:1970 Author Organization [facility] Address [address] [place] [address] Care Team Providers Name Role Phone Gagandeep Hinojosa MD Primary Care Provider Encounter Details Date Type Department Care Team Description 02/18/2015 Notes/Orders [place] [facility] Gagandeep Hinojosa Type 2 d layo Rubio MD mellitus, uncontrolled [address] 1415 [facility] (Primary Dx) [place] [address] Ave [phone] [place] [address] Social History Tobacco Use Types Packs/Day Years Used Date Smoking Tobacco: Never Assessed Sex Assigned at Date Recorded Not on file documented as of this encounter Miscellaneous Notes Letter - Gagandeep Hinojosa MD - 02/18/2015 12:00 AM CDT 02/18/2015 Timur Krishnamurthy [address] [place] [address] : 1970 Dear Timur: I am contacting you with a reminder that it is time for your diabetes visit , please call [phone] to schedule your visit due in February. [...] You can schedule your lab appointment at [phone]. Please continue to take your medications as prescribed. We look forward to seeing you again. Gagandeep Hinojosa MD GER OPERATING documented in this encounter Plan of Treatment Not on filedocumented as of this encounter Visit Diagnoses Diagnosis Type 2 diabetes mellitus, uncontrolled - Primary Type II or unspecified type diabetes jasen litus without mention of complication, uncontrolled documented in this encounter Care Teams Farm Forestry And Garden Workers Relationship Specialty Start Date End Date Gagandeep Hinojosa MD PCP - General 05/17/12 1415 [facility] [place], [place] [address] Vane Zarate Psychiatrist Psychiatry 03/22/12 documented as of this encounter
--- OUTSIDE RECORDS SUMMARY | 2022-03-14 18:47 | XMS_ITS | Encounter Summary ---
:1970 Author Organization [facility] Address [address] [place] [address] Care Team Providers Name Role Phone Gagandeep Hinojosa MD Primary Care Provider Reason for Visit Reason Comments [facility] Phone Visit Encounter Details Date Type Department Care Team Description 01/31/2014 Care Coord Phone Judy Luke R N [facility] Phone Visit Medicine 1415 [facility] 1415 [facility] [place] [address] [place] [address] [phone] Social History Tobacco Use Types Packs/Day Years Used Date Smoking Tobacco: Never Assessed Sex Assigned at Date Recorded Not on file documented as of this encounter Progress Notes Judy Pittman RN - 02/13/2014 4:04 PM CDT Left message requesting a return call. Please transfer to [phone]. Judy Pittman RN - 02/13/2014 4:04 PM CDT Press Washer - Phone Call Contact with: Rustam Reason [...] discovered he could obtain generic insulin through [facility] at half the cost. Rustam receives SSDI [...] at the [facility] requesting medication assistance. [employer] may be another resource, if [facility] is unable to help. Judy Pittman, JOSETTE - 02/13/2014 4:04 PM CDT Press Washer - Phone Call Contact with: [facility] Reason for call: Medication assistance Discussion/actions: Dianne is returning my call. [facility] is willing and able to assist Rustam with onemonth of insulin, unfortunately they do not have enough funding to cover the cost of 2 months. [facility] does not typically work with [facility], but [...] resources, if needed. Shared plan: Rustam will supervisor picking crew his insulin at [facility] tomorrow. Rustam will notify me if he [...] home, active care coordinati on - Primary Inadequate community resources documented in this encounter Care Teams Computational Sciences Professor Relationship Specialty Start Date End Date Gagandeep Hinojosa MD PCP - General 05/17/[address] [place], [place] [address] Rodriguez [address] Vane Zarate Psychiatrist Psychiatry 03/22/12 documented as of this encounter
--- OUTSIDE RECORDS SUMMARY | 2022-03-14 18:47 | XMS_ITS | Encounter Summary ---
:1970 Author Organization [facility] Address [address] [place] [address] Care Team Providers Name Role Phone Gagandeep Michaud MD Primary Care Provider Reason for Visit Reason Comments Refill Encounter Details Date Type Department Care Team Description 05/01/2014 [facility]aud [facility] . 1415 [place] [address] [place] [address] [phone] (Wo rk) Social History Tobacco Use Types Packs/Day Years Used Date Smoking Tobacco: Never Assessed Sex Assigned at Date Recorded Not on file documented as of this encounter Nursing Notes Alessia Urias - 05/01/2014 1:03 PM CST Requested medication was last renewed on 01/16/[address] [facility] pharmacy. Requested Prescriptions Refused Prescriptions Disp Refills ??? lisinopril (PRINIVIL, ZESTRIL) 5 mg tablet [Pharmacy Med Name: LISINOPRIL 5MG TABLETS] 90 tablet2 Sig: TAKE 1 TABLET BY MOUTH DAILY Refused By: ALESSIA SPICER Reason for Refusal: REQUEST ALREADY RESPONDED TO BY OTHER MEANS (E.G. PHONE OR FAX) User, Refillmenazainna - 05/01/2014 1:03 PM CST lisinopril (PRINIVIL, [...] - K: 4.6mEq/L on 01/16/2014 Powered by [employer], Reference: [id number], 05/01/2014 12:19:14 PM Minerva GRANGER REFILL ([id number]) documented in this encounter Plan of Treatment Not on filedocumented as of this encounter Visit Diagnoses Not on filedocumented in this encounter Care Teams Film Process Operator Relationship Specialty Start Date End Date Gagandeep Michaud MD PCP - General 05/17/12 [facility]5 [place] Hernandez [address] Vane Zarate Psychiatrist Psychiatry 03/22/12 documented as of this encounter
--- OUTSIDE RECORDS SUMMARY | 2022-03-14 18:47 | XMS_ITS | Encounter Summary ---
:1970 Author Organization [facility] Address [address] [place] [address] Care Team Providers Name Role Phone Gagandeep Hinojosa MD Primary Care Provider Reason for Referral Specialty Diagnoses / Procedures Referred By Contact Refer red To Contact Gagandeep Hinojosa MD 1415 [facility] [place] [address] Referral ID Status Reason Start Date Expiration Date Visits Requ ested Visits Authorized Reason for Visit Reason Comments Diabetes Encounter Details Date Type Department Care Team Description 01/16/2014 Office Visit Gagandeep Storm (Primary Dx); Romario Rubio MD Type II or unspecified type diabetes jasen litus without mention of complication, uncontrolled; [address] 1415 [facility] Need for influenza vaccinati on; [place] Vigil [address] [address] Proteinuria; [phone] KAT[place]NA VIGIL [address] assisted current use of insulin; [phone] Long-term insul in use in type 2 [...] ICD-9-CM 1. Financial difficulties V60.2 [facility] Care Coordination Consult (AMB) 2. Type II or unspecified type diabetes mellitus without mention of complication, uncontrolled (HCC)250.02 lisinopril (PRINIVIL, ZESTRIL) 5 mg tablet metFORMIN (GLUCOPHAGE) 500 mg tablet insulin NPH (NOVOLIN N) 100 unit/mL Susp insulin regular (NOVOLIN R) 100 unit/mL injection Chronic 3. Need for influenza vaccination V04.81 Fluarix Influenza QIV (36+ mos) PLAN: 1. refer to health group homehome office claims examiner. Add metformin Diabetes measures: A1c Due: 3 [...] vaccination and in oculation against influenza Proteinuria remote computer terminal operator current use of insulin (HRC) Encounter for [...] unspecified documented in this encounter Care Teams Filling Separator Relationship Specialty Start Date End Date Gagandeep Hinojosa MD PCP - General 05/17/12 1415 [place] [address] Vane Zarate Psychiatrist Psychiatry 03/22/12 documented as of this encounter
--- OUTSIDE RECORDS SUMMARY | 2022-03-14 18:47 | XMS_ITS | Encounter Summary ---
:1970 Author Organization [facility] Address [address] [place] [address] Care Team Providers Name Role Phone Gagandeep Hinojosa MD Primary Care Provider Reason for Visit Reason Comments Refill Encounter Details Date Type Department Care Team Description 07/04/2014 [facility] Vanessa Ram PA-C Refill 1515 [facility] . [address] [facility] [place] [address] [place] [address] [phone] (Wo rk) Social History Tobacco Use Types Packs/Day Years Used Date Smoking Tobacco: Never Assessed Sex Assigned at Date Recorded Not on file documented as of this encounter Plan of Treatment Not on filedocumented as of this encounter Visit Diagnoses Not on filedocumented in this encounter Care Teams Insulation Installer Relationship Specialty Start Date End Date Gagandeep Hinojosa MD PCP - General 05/17/12 1415 [place] [address] Vane Zarate Psychiatrist Psychiatry 03/22/12 documented as of this encounter
--- OUTSIDE RECORDS SUMMARY | 2022-03-14 18:47 | XMS_ITS | Encounter Summary ---
:1970 Author Organization [facility] Address [address] [place] [address] Care Team Providers Name Role Phone Gagandeep Hinojosa MD Primary Care Provider Encounter Details Date Type Department Care Team Description 01/16/2014 Lab Visit [facility] Type II or unspecified type diabetes mellitus without mention of complication, uncontrolled; [address] [place] [address] Social History Tobacco Use Types Packs/Day Years [...] (ABNORMAL) Microalb/Creat Ratio (01/16/2014 10:18 AM CDT) Patholo gist Method Time Signature Microalbumin 120.8 mg/L HP CONVERSION Urine U Creat Random 102 mg/dL HP CONVERSION Microalbumin/Cre 118.4 (H) 0.0 - HP CONVERSION atinine Ratio 30.0 Specimen Anatomical Collection Method Collection Time Receive d Time (Source) Location / / Volume Laterality 01/16/2014 10:18 01/16/2014 AM CDT 12:42 PM CDT Gagandeep Hinojosa MD LAB_1 Performing Organization Address City/[facility] Phon e Number HP CONVERSION Creatinine [...] - 01/16/2014 12:32 [place] [address] Gagandeep Hinojosa MD LAB_1 Performing Organization Address [facility] Phon e Number HP CONVERSION [...] - 01/16/2014 12:32 PM [place] [address] Gagandeep Hinojosa MD LAB_1 Performing Organization Address [facility] Phon e Number HP CONVERSION (ABNORMAL) HEMOGLOBIN A1C, RAPID (01/16/2014 10:14 AM CDT) [facility] Method Time Signature Hemoglobin A1C 11.3 (H) [...] - 01/16/2014 10:24 AM CDT Performed at [facility], [address] [place] [address] Gagandeep Hinojosa MD LAB_1 Performing Organization Address [facility] Phon e Number HP CONVERSION documented in this encounter Visit Diagnoses Diagnosis Type II or unspecified type diabetes jasen litus without mention of complication, uncontrolled Other and unspecified hyperlipidemia (HR C) Other and unspecified hyperlipidemia documented in this encounter Care Teams Operating Theatre Technician Relationship Specialty Start Date End Date Gagandeep Hinojosa MD PCP - General 05/17/[address] [place] [address] Vane Zarate Psychiatrsamantha Psychiatry 03/22/12 documented as of this encounter
--- OUTSIDE RECORDS SUMMARY | 2022-03-14 18:47 | XMS_ITS | Encounter Summary ---
:1970 Author Organization [facility] Address [address] [place] [address] Care Team Providers Name Role Phone Gagandeep Hinojosa MD Primary Care Provider Encounter Details Date Type Department Care Team Description 05/21/2014 Lab Visit [place] Laboratory Type II or unspecified type 1415 [facility] . diabetes mellitus without [place] [id number] mention of complication, uncontrolled Social History Tobacco Use Types Packs/Day Years Used Date Smoking Tobacco: Never Assessed Sex Assigned at Date Recorded Not on file documented as of this encounter Plan of Treatment Not on filedocumented as of this encounter Procedures Procedure Name Priority Date/Time Associated Diagnosis Comme nts ALBUMIN/CREAT RATIO Routine 05/21/2014 12:21 Type II or Resu lts for this PM FRETTED INSTRUMENT MAKER HAND unspecified type procedure a re in diabetes mellitus the result s without mention of section. complication, uncontrolled (HRC) HEMOGLOBIN A1C, Routine 05/21/2014 12:06 Type II or Results for this RAPID PM FRETTED INSTRUMENT MAKER HAND unspecified type procedure a re in diabetes mellitus the result s without mention of section. complication, uncontrolled (HRC) LIPID PANEL AND Routine 05/21/2014 12:06 Type II or Results for this DIRECT LDL(IF PM FRETTED INSTRUMENT MAKER HAND unspecified type procedure are in NEEDED) diabetes mellitus the result s without mention of section. complication, uncontrolled (HRC) CREATININE / GFR Routine 05/21/2014 12:06 Type II or Results for this PM FRETTED INSTRUMENT MAKER HAND unspecified type procedure a re in diabetes mellitus the result s without mention of section. complication, uncontrolled (HRC) ELECTROLYTE PANEL Routine 05/21/2014 12:06 Type II or Result s for this PM FRETTED INSTRUMENT MAKER HAND unspecified type procedure a re in diabetes mellitus the result s without mention of section. complication, uncontrolled (HRC) documented in this encounter Results (ABNORMAL) Microalb/Creat Ratio (05/21/2014 12:21 PM FRETTED INSTRUMENT MAKER HAND) [facility] gist Method Time Signature Microalbumin 129.0 mg/L HP CONVERSION Urine U Creat Random 142 mg/dL HP CONVERSION Microalbumin/Cre 90.8 (H) 0.0 - HP CONVERSION atinine Ratio 30.0 Specimen Anatomical Collection Method Collection Time Receive d Time (Source) Location / / Volume Laterality 05/21/2014 12:21 05/21/2014 3:33 PM FRETTED INSTRUMENT MAKER HAND PM FRETTED INSTRUMENT MAKER HAND Narrative HP CONVERSION - 05/21/2014 4:13 PM FRETTED INSTRUMENT MAKER HAND Performed at [place] [address] Gagandeep Hinojosa MD LAB_1 Performing Organization Address [facility] Phon e Number HP CONVERSION Creatinine / GFR (05/21/2014 12:06 PM FRETTED INSTRUMENT MAKER HAND) athologist Signature Creatinine 0.8 0.4 - 1.3 [...] Volume Laterality 05/21/2014 12:06 05/21/2014 5:17 PM FRETTED INSTRUMENT MAKER HAND PM FRETTED INSTRUMENT MAKER HAND Narrative HP CONVERSION - 05/21/2014 6:27 PM FRETTED INSTRUMENT MAKER HAND Performed at [facility], [address] [place] [address] Gagandeep Hinojosa MD LAB_1 Performing Organization Address City/[facility] Phon e Number HP CONVERSION (ABNORMAL) Electrolyte Panel (05/21/2014 12:06 PM FRETTED INSTRUMENT MAKER HAND) athologist Signature Sodium 133 (L) 137 - 147 HP CONVERSION mEq/L Potassium 4.4 3.5 - 5.2 HP CONVERSION mEq/L Chloride 95 (L) 98 - 110 HP CONVERSION mEq/L Bicarbonate 27 23 - 33 HP CONVERSION mmol/L Specimen Anatomical Collection Method Collection Time Receive d Time (Source) Location / / Volume Laterality 05/21/2014 12:06 05/21/2014 5:17 PM FRETTED INSTRUMENT MAKER HAND PM FRETTED INSTRUMENT MAKER HAND Narrative HP CONVERSION - 05/21/2014 6:27 PM FRETTED INSTRUMENT MAKER HAND Performed at [facility], [address] [place] [address] Gagandeep Hinojosa MD LAB_1 Performing Organization Address City/[facility] Phon e Number HP CONVERSION (ABNORMAL) Lipid Panel and Direct LDL(If Needed) (05/21/2014 12:06 PM FRETTED INSTRUMENT MAKER HAND) [facility] [employer] Method Time Signature Cholesterol 152 0 - [...] Volume Laterality 05/21/2014 12:06 05/21/2014 5:17 PM FRETTED INSTRUMENT MAKER HAND PM FRETTED INSTRUMENT MAKER HAND Narrative HP CONVERSION - 05/21/2014 6:27 PM FRETTED INSTRUMENT MAKER HAND Performed at [facility], [address] [place] [address] Gagandeep Hinojosa MD LAB_1 Performing Organization Address [facility] Phon e Number HP CONVERSION (ABNORMAL) HEMOGLOBIN A1C, RAPID (05/21/2014 12:06 PM FRETTED INSTRUMENT MAKER HAND) [facility] Method Time Signature Hemoglobin A1C 11.0 [...] / Volume Laterality 05/21/2014 12:06 05/21/2014 PM FRETTED INSTRUMENT MAKER HAND 12:06 PM FRETTED INSTRUMENT MAKER HAND Narrative HP CONVERSION - 05/21/2014 12:22 PM FRETTED INSTRUMENT MAKER HAND Performed at [facility], [address] [place] [address] Gagandeep Hinojosa MD LAB_1 Performing Organization Address City/State/ZIP Code Phon e Number HP CONVERSION documented in this encounter Visit Diagnoses Diagnosis Type II or unspecified type diabetes jasen litus without mention of complication, uncontrolled documented in this encounter Care Teams Leasing Machine Tender Relationship Specialty Start Date End Date Gagandeep Hinojosa MD PCP - General 05/17/12 1415 [facility] [place] [address] Vane Zarate Psychiatrsamantha Psychiatry 03/22/12 documented as of this encounter
--- OUTSIDE RECORDS SUMMARY | 2022-03-14 18:47 | XMS_ITS | Encounter Summary ---
:1970 Author Organization [facility] Address [address] [place] [address] Care Team Providers Name Role Phone Gagandeep Hinojosa MD Primary Care Provider Encounter Details Date Type Department Care Team Description 08/27/2014 [facility] H[facility] MD 1415 [facility] . 1415 [facility] [place] [address] [place] [address] [phone] (Wo rk) Social History Tobacco Use Types Packs/Day Years Used Date Smoking Tobacco: Never Assessed Sex Assigned at Date Recorded Not on file documented as of this encounter Plan of Treatment Not on filedocumented as of this encounter Visit Diagnoses Not on filedocumented in this encounter Care Teams Supervisor Locomotive Relationship Specialty Start Date End Date Gagandeep Hinojosa MD PCP - General 05/17/12 1415 [facility] [place] [address] Vane Zarate Psychiatrsamantha Psychiatry 03/22/12 documented as of this encounter
--- OUTSIDE RECORDS SUMMARY | 2022-03-14 18:47 | XMS_ITS | Encounter Summary ---
:1970 Author Organization [facility] Address [address] [place] [address] Care Team Providers Name Role Phone Gagandeep Hinojosa MD Primary Care Provider Reason for Visit Reason Comments Patient Calling Back Encounter Details Date Type Department Care Team Description 11/23/2013 Telephone [facility] Gagandeep Hinojosa, Anastasia nt Calling Back Medicine MD 1415 [facility] . 1415 [place] [address] [place] [address] [phone] (Wo rk) Social History Tobacco Use Types [...] that he is returning a call from [facility] from around 10 am today.He is aware of his Echocardiogram at [facility] on [facility] An Maldonado - 11/23/2013 1:37 PM CDT Patient says he returning a call from the [facility] from [facility] this morning. documented in this encounter Plan of Treatment Not on filedocumented as of this encounter Visit Diagnoses Not on filedocumented in this encounter Care Teams Mainframe Architect Relationship Specialty Start Date End Date Gagandeep Hinojosa MD PCP - General 05/17/12 1415 [facility] [place] [address] Vane Zarate Psychiatrist Psychiatry 03/22/12 documented as of this encounter
--- OUTSIDE RECORDS SUMMARY | 2022-03-14 18:47 | XMS_ITS | Encounter Summary ---
:1970 Author Organization [facility] Address [address] [place] [address] Care Team Providers Name Role Phone Gagandeep Hinojosa MD Primary Care Provider Encounter Details Date Type Department Care Team Description 11/12/2014 [facility] G[facility]ep Hinojosa MD 1415 [facility] . 1415 [facility] [place] [address] [place] [address] [phone] (Wo rk) Social History Tobacco Use Types [...] - General 05/17/12 1415 [facility] [address] Vane Zarate Psychiatrsamantha Psychiatry 03/22/12 documented as of this encounter
--- OUTSIDE RECORDS SUMMARY | 2022-03-14 18:48 | XMS_ITS | Encounter Summary ---
:1970 Author Organization [facility] Address [address] [address] [place] [address] Care Team Providers Name Role Phone Gagandeep Hinojosa MD Primary Care Provider Reason for Visit Reason Comments Diabetes Encounter Details Date Type Department Care Team Description 03/14/2013 Office Visit Gagandeep Storm Type II or unspecified type diabetes mellitus without mention of complication, uncontrolled (Primary Dx); Romario Rubio MD Need for influenza vaccination; 1415 [place] 1415 [facility] Coronary atherosclerosis of unspecified type of vessel, [place] or graft; Ave[address] Ave detention current use of insulin; [place] [address] [place] VIG[place] Long-term insulin use in typ e 2 diabetes; [phone] [id number] Unspecified essential hypertension; [phone] Tobacco use dis order; (Work) Obesity, unspecified Social History Tobacco Use Types Packs/Day Years Used Date Smoking Tobacco: Never Assessed Sex Assigned at Date Recorded Not on file documented as of this encounter Last Filed Vital Signs Vital Sign Reading Time Taken Comments Blood Pressure 122/74 03/14/2013 1:46 PM FITNESS CENTER ATTENDANT Pulse 98 03/14/2013 1:46 PM FITNESS CENTER ATTENDANT Temperature - - Respiratory Rate - - Oxygen Saturation - - Inhaled Oxygen Concentration - - Weight 105.2 kg (232 lb) 03/14/2013 1:46 PM FITNESS CENTER ATTENDANT Height - - Body Mass Index 33.29 [...] A normal value is less than 30. ESS CENTER ATTENDANT documented in this encounter Progress Notes Gagandeep [...] UMAR: 3 months Aspirin: yes Tobacco: yes ESS CENTER ATTENDANT documented in this encounter Plan of Treatment Not on filedocumented as of this encounter Visit Diagnoses Diagnosis Type II or unspecified type diabetes jasen litus without mention of complication, uncontrolled - Primary Need for influenza vaccination Need for prophylactic vaccination and in oculation against influenza Coronary atherosclerosis of unspecified type of vessel, [place] or graft (HRC) Coronary atherosclerosis of unspecified type of vessel, [place] or graft detention current use of insulin (HRC) Encounter for long-term (current) use of insulin Long-term insulin use in type 2 diabetes (HRC) Type II or unspecified type diabetes jasen litus without mention of complication, not stated as uncontrolled Unspecified essential hypertension (HRC) Unspecified essential hypertension Tobacco use disorder (HRC) Tobacco use disorder Obesity, unspecified (HRC) Obesity, unspecified documented in this encounter Care Teams General Farm Hand Relationship Specialty Start Date End Date Gagandeep Hinojosa MD PCP - General 05/17/12 1415 [place] [address] Vane Zarate Psychiatrist Psychiatry 03/22/12 documented as of this encounter
--- OUTSIDE RECORDS SUMMARY | 2022-03-14 18:48 | XMS_ITS | Encounter Summary ---
:1970 Author Organization [facility] Address [address], [place] [address] Care Team Providers Name Role Phone Gagandeep Hinojosa MD Primary Care Provider Reason for Visit Reason Comments Appt. Needed Encounter Details Date Type Department Care Team Description 07/12/2013 Telephone [facility] Gagandeep Hinojosa MD Appt. Needed 1415 [facility] . 1415 [place] [address] [place] [address] [phone] (Wo rk) Social History Tobacco Use Types Packs/Day Years Used Date Smoking Tobacco: Never Assessed Sex Assigned at Date Recorded Not on file documented as of this encounter Nursing Notes Cordelia Jerome - 07/12/2013 4:29 PM CDT 1st call LM to call [phone] to schedule overdue A1c/FL and diabetes check with Dr Hinojosa (due May). OIE documented in this encounter Plan of Treatment Not on filedocumented as of this encounter Visit Diagnoses Not on filedocumented in this encounter Care Teams Functional Analyst Relationship Specialty Start Date End Date Gagandeep Hinojosa MD PCP - General 05/17/12 1415 [facility], [place] [address] Vane Zarate Psychiatrist Psychiatry 03/22/12 documented as of this encounter
--- OUTSIDE RECORDS SUMMARY | 2022-03-14 18:48 | XMS_ITS | Encounter Summary ---
:1970 Author Organization [facility] Address [address] [place] [address] Care Team Providers Name Role Phone Gagandeep Hinojosa MD Primary Care Provider Reason for Visit Reason Comments LAB RESULTS Encounter Details Date Type Department Care Team Description 02/28/2013 [facility] MD LAB RESULTS 1415 [facility] . 1415 [place] [address] [place] [address] [phone] (Wo rk) Social History Tobacco Use Types Packs/Day Years Used Date Smoking Tobacco: Never Assessed Sex Assigned at Date Recorded Not on file documented as of this encounter Nursing Notes Jud Curry RN - 02/28/2013 12:00 PM CST Reviewed lab letter with pt, appt made for discussion as per letter MGR Yesenia Jara - 02/28/2013 11:54 AM CST Lab/Radiology Results Primary Care Provider: Gagandeep Hinojosa What test result is needed? Labs When and where was test done? [place] on 02/14 Who ordered the test? Gagandeep Hinojosa Transferred to triage per patient request. Can be reached at [phone]. documented in this encounter Plan of Treatment Not on filedocumented as of this encounter Visit Diagnoses Not on filedocumented in this encounter Care Teams Market Research Worker Relationship Specialty Start Date End Date Gagandeep Hinojosa MD PCP - General 05/17/12 1415 [place] [address] Vane Zarate Psychiatrsamantha Psychiatry 03/22/12 documented as of this encounter
--- OUTSIDE RECORDS SUMMARY | 2022-03-14 18:48 | XMS_ITS | Encounter Summary ---
:1970 Author Organization [facility] Address [address] [place] [address] Care Team Providers Name Role Phone Gagandeep Hinojosa MD Primary Care Provider Reason for Visit Reason Comments Medication Questions Encounter Details Date Type Department Care Team Description 03/16/2013 Telephone [facility] Gagandeep Hinojosa, Medic ation Questions Medicine 1415 [facility] . 1415 [facility] [place] [address] [place] [address] [phone] (Wo rk) Social History Tobacco Use Types Packs/Day Years Used Date Smoking Tobacco: Never Assessed Sex Assigned at Date Recorded Not on file documented as of this encounter Nursing Notes Judy Pittman RN - 03/20/2013 9:56 AM CST Joy Operator Helper - Phone Call Reason for call: Care [...] cover his insulin when he [facility]. Rustam agreed. Shared plan: Lev will contact [facility] pharmacy and cover the cost of Rustam's insulin for another month. I provided Rustam with Lev's contact information and he will call her in April to develop a budget for 2013. Rustam verbalized understanding and agreed with plan of care and follow up. RATORY APPARATUS GLASS GRINDER Judy Pittman RN - 03/19/2013 4:48 PM CST Joy Operator Helper - Phone Call Reason for call: Care [...] in the morning. I contacted Zoie Serrano, exhibit display representative from [employer]. Zoie states she does not carry samples for the analog insulins. Per [id number], Rustam and his are over income for [...] will take to resolve. he states understanding RATORY APPARATUS GLASS GRINDER Verena Padilla - 03/16/2013 4:36 PM CST [...] waiting for this to be addressed 03/19 RATORY APPARATUS GLASS GRINDER Ajit Van - 03/16/2013 3:20 PM CST Patient calling about refill on medication but is inquiring if the [employer] can help him out. documented in this encounter Plan of Treatment Not on filedocumented as of this encounter Visit Diagnoses Not on filedocumented in this encounter Care Teams Car Park Attendant Relationship Specialty Start Date End Date Gagandeep Hinojosa MD PCP - General 05/17/12 [facility]5 [place] [id number] Vane Zarate Psychiatrist Psychiatry 03/22/12 documented as of this encounter
--- OUTSIDE RECORDS SUMMARY | 2022-03-14 18:48 | XMS_ITS | Encounter Summary ---
:1970 Author Organization [facility] Address [address] [place] [address] Care Team Providers Name Role Phone Gagandeep Hinojosa MD Primary Care Provider Encounter Details Date Type Department Care Team Description 07/13/2013 Lab Visit [place] Laboratory Type II or unspecified type diabetes mellitus without mention of complication, uncontrolled; [address] Coronary atherosclerosis of unspecified type of vessel, [place] or graft [place] [address] Social History Tobacco Use Types Packs/Day Years [...] Coronary atherosclerosis of unspecified type of vessel, [place] or graft (HRC) LDL CHOLESTEROL, Routine 07/13/2013 10:39 Results for [...] Coronary atherosclerosis of unspecified type of vessel, [place] or graft (HRC) documented in this encounter [...] MD LAB_1 Performing Organization Address City/[facility] Code Phon e Number HP CONVERSION LDL Cholesterol, Direct Measured (07/13/2013 10:39 AM CDT) athologist Signature LDL Direct 123 0 - 130 HP CONVERSION mg/dL Specimen Anatomical Collection Method Collection Time Receive d Time (Source) Location / / Volume Laterality 07/13/2013 10:39 07/13/2013 2:48 AM CDT PM CDT Narrative HP CONVERSION - 07/13/2013 6:53 PM CDT Performed at [facility], [address] [place] [address] Gagandeep Hinojosa MD LAB_1 Performing Organization Address City/[facility] Code Phon e Number HP CONVERSION (ABNORMAL) Hgb A1c (07/13/2013 10:39 AM CDT) athologist Signature HGB A1C 10.4 (H) 4.0 - 5.6 % HP CONVERSION Specimen Anatomical Collection Method Collection Time Receive d Time (Source) Location / / Volume Laterality 07/13/2013 10:39 07/13/2013 4:10 AM CDT PM CDT Gagandeep Hinojosa MD LAB_1 Performing Organization Address City/[facility] Code Phon e Number HP CONVERSION (ABNORMAL) Lipid Panel and Direct LDL(If Needed) (07/13/2013 10:39 AM CDT) [facility] Method Time Signature Cholesterol 197 0 - [...] - 07/13/2013 5:00 PM CDT Performed at [facility], [address] [place] [address] Gagandeep Hinojosa MD LAB_1 Performing Organization Address City/[facility] Phon e Number HP CONVERSION AST (07/13/2013 10:39 AM CDT) [facility] Method Time Signature Aspartate 25 0 - 45 HP CONVERSION Aminotransferase U/L Specimen Anatomical Collection Method Collection Time Receive d Time (Source) Location / / Volume Laterality 07/13/2013 10:39 07/13/2013 2:48 AM CDT PM CDT Narrative HP CONVERSION - 07/13/2013 5:00 PM CDT Performed at [facility], [address] [place] [address] Gagandeep Hinojosa MD LAB_1 Performing Organization Address City/[facility] Phon e Number HP CONVERSION documented in this encounter Visit Diagnoses Diagnosis Type II or unspecified type diabetes jasen litus without mention of complication, uncontrolled Coronary atherosclerosis of unspecified type of vessel, [place] or graft (HRC) Coronary atherosclerosis of unspecified type of vessel, [place] or graft documented in this encounter Care Teams Measurement Specialist Relationship Specialty Start Date End Date Gagandeep Hinojosa MD PCP - General 05/17/12 [facility] [place] [id number] Vane Zarate Psychiatrist Psychiatry 03/22/12 documented as of this encounter
--- OUTSIDE RECORDS SUMMARY | 2022-03-14 18:48 | XMS_ITS | Encounter Summary ---
:1970 Author Organization [employer] Address [address] [place] [address] Care Team Providers Name Role Phone Gagandeep Hinojosa MD Primary Care Provider Encounter Details Date Type Department Care Team Description 04/10/2013 Hospital Encounter Heart & Vascular Chest pain, unspecified Center Nuclear (Primary Dx) Cardiology [address] [facility] [place] [address] Social History Tobacco Use Types [...] Procedure Name Priority Date/Time Associated Diagnosis Comme [facility] OUTREACH NUCLEAR Routine 04/10/2013 4:12 PM Chest pain, Resul ts for this STUDY TANK ASSEMBLER unspecified procedure are i n the results section. documented in this encounter Results Outreach Nuclear Study (04/10/2013 4:12 PM TANK ASSEMBLER) Specimen (Source) Anatomical Location Collection Method / Collectio n Time Received Time / Laterality Volume Narrative HP CONVERSION - 04/10/2013 4:12 PM TANK ASSEMBLER See results in [facility]. Silverio Cabrera MD PN CARDIAC SERVICES ORDERABL ES Performing Organization Address City/State/ZIP Code Phon e Number HP CONVERSION documented in this encounter Visit Diagnoses Diagnosis Chest pain, unspecified - Primary documented in this encounter Care Teams Curing Oven Tender Relationship Specialty Start Date End Date Gagandeep Hinojosa MD PCP - General 05/17/[address] [facility] [place] [address] Vane Zarate Psychiatrist Psychiatry 03/22/12 documented as of this encounter
--- OUTSIDE RECORDS SUMMARY | 2022-03-14 18:48 | XMS_ITS | Encounter Summary ---
:1970 Author Organization [facility] Address [address], [place] [address] Care Team Providers Name Role Phone Gagandeep Michaud MD Primary Care Provider Reason for Visit Reason Comments Refill Encounter Details Date Type Department Care Team Description 08/03/2013 Refill [facility] Gagandeep Michaud MD [facility] [address] [place] [address] [place], [place] [id number] (Wo rk) Social History Tobacco Use Types [...] filedocumented in this encounter Care Teams Research And Development Technician Relationship Specialty Start Date End Date Gagandeep Michaud MD PCP - General 05/17/12 1415 [facility] [place] [id number] Vane Zarate Psychiatrist Psychiatry 03/22/12 documented as of this encounter
--- OUTSIDE RECORDS SUMMARY | 2022-03-14 18:48 | XMS_ITS | Encounter Summary ---
:1970 Author Organization [facility] Address [address] [place] [address] Care Team Providers Name Role Phone Gagandeep Hinojosa MD Primary Care Provider Reason for Visit Reason Comments Diabetes Encounter Details Date Type Department Care Team Description 11/16/2013 Notes/Orders [facility] Gagandeep Hinojosa MD 1415 [facility] . [address] [facility] [place] [address] [place] [id number] [phone] (Wo rk) Social History Tobacco Use Types Packs/Day Years Used Date Smoking Tobacco: Never Assessed Sex Assigned at Date Recorded Not on file documented as of this encounter Plan of Treatment Not on filedocumented as of this encounter Visit Diagnoses Not on filedocumented in this encounter Care Teams Senior Digital Designer Relationship Specialty Start Date End Date Gagandeep Hinojosa MD PCP - General 05/17/12 1415 [place] [id number] Vane Zarate Psychiatrist Psychiatry 03/22/12 documented as of this encounter
--- OUTSIDE RECORDS SUMMARY | 2022-03-14 18:48 | XMS_ITS | Encounter Summary ---
:1970 Author Organization [facility] Address [address] [place] [address] Care Team Providers Name Role Phone Gagandeep Hinojosa MD Primary Care Provider Reason for Visit Reason Comments Wheezing Encounter Details Date Type Department Care Team Description 10/19/2013 Nurse Triage [facility] Gagandeep Hinojosa MD Wheezing [facility] [address] [place] [address] [place] [address] [phone] (Wo rk) Social History Tobacco Use Types Packs/Day Years Used Date Smoking Tobacco: Never Assessed Sex Assigned at Date Recorded Not on file documented as of this encounter Nursing Notes Marci Oliveira RN - 10/19/2013 2:47 PM CDT Protocol: BREATHING [id number] Affirmative: Wheezing can be heard across the [...] filedocumented in this encounter Care Teams Restaurant Manager Relationship Specialty Start Date End Date Gagandeep Hinojosa MD PCP - General 05/17/12 1415 [facility] [place] [address] Vane Zarate Psychiatrist Psychiatry 03/22/12 documented as of this encounter
--- OUTSIDE RECORDS SUMMARY | 2022-03-14 18:48 | XMS_ITS | Encounter Summary ---
:1970 [facility] Address [address] [place] [address] Care Team Providers Name Role Phone Gagandeep Hinojosa MD Primary Care Provider Reason for Visit Reason Comments LAB RESULTS Encounter Details Date Type Department Care Team Description 07/18/2013 Telephone [facility] Gagandeep Hinojosa MD LAB RESULTS 1415 [facility] . [address]15 [place] [address] [place] [address] [phone] (Wo rk) Social History Tobacco Use Types [...] on filedocumented in this encounter Care Teams Doll Wig Hackler Relationship Specialty Start Date End Date Gagandeep Hinojosa MD PCP - General 05/17/12 1415 [facility] [place] [address] Vane Zarate Psychiatrist Psychiatry 03/22/12 documented as of this encounter
--- OUTSIDE RECORDS SUMMARY | 2022-03-14 18:48 | XMS_ITS | Encounter Summary ---
:1970 Author Organization [facility] [employer] Address [address] [place] [address] Care Team Providers Name Role Phone Gagandeep Hinojosa MD Primary Care Provider Reason for Visit Reason Comments Care Coordination Encounter Details Date Type Department Care Team Description 02/12/2013 [facility]phone [facility] Judy Pittman, RN Care Coordination 1415 [facility] . 1415 [place] [address] [place] [address] [phone] Social History Tobacco Use Types Packs/Day Years [...] requesting a return call. Please transfer to [phone]. Checking to make sure Rustam received his insulin at [facility] in [place] and there weren't any problems with payment. Judy Pittman RN - 02/12/2013 3:43 PM CDT Instrument Assembler - Phone Call Reason for call: Medication assistance Discussion/actions: Lev is returning my call, stating that the [employer] [facility] will be able to help Rustam with the cost of his insulin for this month. Unfortunately, [facility] does not work with [facility] and therefore will need the prescription transferred to [facility] in [place] to arrange payment. I spoke with the pharmacist at [facility] and provided a verbal order for Novolin N and Novolin R per Dr Hinojosa's orders on 02/09/13. I spoke with pharmacist at [facility] and discontinued the refill senton 02/09/13. I left a detailed message for Rustam stating he can flower picker his Novolin N and Novolin R refill at [facility] pharmacy in [place], the [employer] [facility] will cover the cost for this month. I reminded Rustam thathe is due to have his A1c checked before the end of this month and will need to have this completed before further refills. Shared plan: I provided my contact information for Rustam to call and schedule his A1c. Judy Pittman RN - 02/12/2013 2:11 PM CDT Instrument Assembler - Phone Call Reason for call: Medication [...] filedocumented in this encounter Care Teams Sports Physiotherapist Relationship Specialty Start Date End Date Gagandeep Hinojosa MD PCP - General 05/17/12 [address] [place] [address] Vane Zarate Psychiatrist Psychiatry 03/22/12 documented as of this encounter
--- OUTSIDE RECORDS SUMMARY | 2022-03-14 18:48 | XMS_ITS | Encounter Summary ---
:[address] [facility] Address [address] [place] [address] Care Team Providers Name Role Phone Gagandeep Hinojosa MD Primary Care Provider Reason for Visit Reason Comments Vomiting Diarrhea Abdominal Pain Encounter Details Date Type Department Care Team Description 03/07/2013 Hospital Encounter [facility], Abdo rosalie pain, unspecified site (Primary Dx); Care Millicent Belcher MD Dizziness; [address]; [place], [place] [address] [phone] Social History Tobacco Use Types Packs/Day Years Used Date Smoking Tobacco: Never Assessed Sex Assigned at Date Recorded Not on file documented as of this encounter Last Filed Vital Signs Vital Sign Reading Time Taken Comments Blood Pressure 122/85 03/07/2013 2:52 PM AUTOMATIC PINSETTER ADJUSTER Pulse 97 03/07/2013 2:52 PM AUTOMATIC PINSETTER ADJUSTER Temperature 36.3 ??C (97.3 ??F) 03/07/2013 1:17 PM AUTOMATIC PINSETTER ADJUSTER Respiratory Rate 16 03/07/2013 2:52 PM AUTOMATIC PINSETTER ADJUSTER Oxygen Saturation - - Inhaled Oxygen Concentration [...] 03/16/13 1214 Note Time: 03/07/131726 Status: Signed Dock Builder: Millicent Nieves MD (Physician) NAME: SHARLENE VARNER MR#: [id number] CSN: [id number] AUTHENTICATING CLINICIAN: Millicent Nieves MD CONFIRM #: [id number] LOC: 520 URGENT CARE PROGRESS NOTE DATE [...] MEDICATIONS: Reviewed. SOCIAL HISTORY: He works at [employer]. Began smoking cigarettes again. Does not drink [...] or persist, he will return for recheck. SMS:[facility] [employer] C: CONFIRM #: [id number] MATIC PINSETTER ADJUSTER Zayra Orozco RN - 03/07/2013 3:26 PM CST IV removed with cannula intact per order; pressure dressing applied to site. Pt verbalized improvement in condition and decrease in nausea. Pt discharged alert and oriented. Екатерина Broderick RN - 03/07/2013 2:55 PM CST VSS. Pt denies signs of allergic reaction. Pt resting comfortably. Pt alert. Nausea resolving. IV patent. Will continue to monitor pt. MATIC PINSETTER ADJUSTER Екатерина Broderick RN - 03/07/2013 2:37 PM CST Pt c/o feeling head coyle sensation, dizziness. Dr. Nieves informed. See BG result. documented in this encounter Miscellaneous Notes Miscellaneous - 03/07/2013 3:26 PM CSTNotes Recorded by Gina Ash MD on 03/07/2013 at 9:[address] Nieves review on 03/08/13. MATIC PINSETTER ADJUSTER Medication History - Elvis Ellington MD - [...] RN Intravenous - 03/07/13 1437 - - MATIC PINSETTER ADJUSTER documented in this encounter Plan of Treatment Not on filedocumented as of this encounter Procedures Procedure Name Priority Date/Time Associated Diagnosis Comme nts BGS NO CHARGE Routine 03/07/2013 2:35 PM Results for this AUTOMATIC PINSETTER ADJUSTER procedure are i n the results section. ANION GAP STAT 03/07/2013 1:53 PM Results f or this AUTOMATIC PINSETTER ADJUSTER procedure are i n the results section. COMPLETE BLOOD STAT 03/07/2013 1:53 PM Abdominal pain, Resu lts for this COUNT-W/DIFF AUTOMATIC PINSETTER ADJUSTER unspecified site procedure a re in the results section. LIVER PANEL(HEPATIC STAT 03/07/2013 1:53 PM Abdominal pain, Results for this FUNCTION PANEL) AUTOMATIC PINSETTER ADJUSTER unspecified site procedur e are in the results section. BASIC METABOLIC PANEL STAT 03/07/2013 1:53 PM Abdominal sesar n, Results for this AUTOMATIC PINSETTER ADJUSTER unspecified site procedure a re in the results section. DIFFERENTIAL STAT 03/07/2013 1:53 PM Results f or this AUTOMATIC PINSETTER ADJUSTER procedure are i n the results section. VALPROIC ACID STAT 03/07/2013 1:53 PM Abdominal pain, Resul ts for this (DEPAKENE) AUTOMATIC PINSETTER ADJUSTER unspecified site procedure a re in the results section. LIPASE STAT 03/07/2013 1:53 PM Abdominal pain, Result s for this AUTOMATIC PINSETTER ADJUSTER unspecified site procedure a re in the results section. OCCULT BLOOD, EXAM 1 STAT 03/07/2013 1:52 PM Abdominal pain , Results for this AUTOMATIC PINSETTER ADJUSTER unspecified site procedure a re in the results section. URINE MICROSCOPIC STAT 03/07/2013 1:37 PM Abdominal pain, R esults for this AUTOMATIC PINSETTER ADJUSTER unspecified site procedure a re in the results section. URINALYSIS STAT 03/07/2013 1:37 PM Abdominal pain, Result s for this ROUTINE(MICRO IF POS) AUTOMATIC PINSETTER ADJUSTER unspecified site pr ocedure are in the results section. BGS NO CHARGE Routine 03/07/2013 1:24 PM Results for this AUTOMATIC PINSETTER ADJUSTER procedure are i n the results section. documented in this encounter Results BGS NO CHARGE (03/07/2013 2:35 PM AUTOMATIC PINSETTER ADJUSTER) athologist Signature Bedside Blood 147 mg/dL HP CONVERSION Glucose Test Comment: Performed at [facility], [address], [place]. [address] Specimen Anatomical Collection Method Collection Time Receive d Time (Source) Location / / Volume Laterality 03/07/2013 2:35 PM 3 2:40 AUTOMATIC PINSETTER ADJUSTER PM AUTOMATIC PINSETTER ADJUSTER Millicent Nieves MD LAB_1 Performing Organization Address City/State/ZIP Code Phon e Number HP CONVERSION (ABNORMAL) Differential (03/07/2013 1:53 PM AUTOMATIC PINSETTER ADJUSTER) [facility] gist Method Time Signature Absolute 7.2 1.8 [...] Volume Laterality 03/07/2013 1:53 PM 3 1:52 AUTOMATIC PINSETTER ADJUSTER PM AUTOMATIC PINSETTER ADJUSTER Narrative HP CONVERSION - 03/07/2013 2:27 PM AUTOMATIC PINSETTER ADJUSTER Performed at [facility], [address] [place] [address] Millicent Nieves MD LAB_1 Performing Organization Address [facility] Phon e Number HP CONVERSION ANION GAP (03/07/2013 1:53 PM AUTOMATIC PINSETTER ADJUSTER) athologist Signature ANION GAP 7 0 - 16 mEq/L HP CONVERSION Specimen Anatomical Collection Method Collection Time Receive d Time (Source) Location / / Volume Laterality 03/07/2013 1:53 PM 3 1:52 AUTOMATIC PINSETTER ADJUSTER PM AUTOMATIC PINSETTER ADJUSTER Narrative HP CONVERSION - 03/07/2013 2:28 PM AUTOMATIC PINSETTER ADJUSTER Performed at [place] [address] Millicent Nieves MD LAB_1 Performing Organization Address [facility] Phon e Number HP CONVERSION Lipase (03/07/2013 1:53 PM AUTOMATIC PINSETTER ADJUSTER) athologist Signature Lipase 34 5 - 70 U/L HP CONVERSION Specimen Anatomical Collection Method Collection Time Receive d Time (Source) Location / / Volume Laterality 03/07/2013 1:53 PM 3 1:52 AUTOMATIC PINSETTER ADJUSTER PM AUTOMATIC PINSETTER ADJUSTER Narrative HP CONVERSION - 03/07/2013 2:28 PM AUTOMATIC PINSETTER ADJUSTER Performed at [facility], [address] [place] [address] Millicent Nieves MD LAB_1 Performing Organization Address [facility] Phon e Number HP CONVERSION Liver Panel(Hepatic Function Panel) (03/07/2013 1:53 PM AUTOMATIC PINSETTER ADJUSTER) [facility] Method Time Signature Alk Phos 61 [...] Volume Laterality 03/07/2013 1:53 PM 3 1:52 AUTOMATIC PINSETTER ADJUSTER PM AUTOMATIC PINSETTER ADJUSTER Narrative HP CONVERSION - 03/07/2013 2:28 PM AUTOMATIC PINSETTER ADJUSTER Performed at [facility], [address] [place] [address] Millicent Nieves MD LAB_1 Performing Organization Address City/State/ZIP Code Phon e Number HP CONVERSION (ABNORMAL) Basic Metabolic Panel (03/07/2013 1:53 PM AUTOMATIC PINSETTER ADJUSTER) [facility] Method Time Signature Creatinine Serum 0.8 [...] Volume Laterality 03/07/2013 1:53 PM 3 1:52 AUTOMATIC PINSETTER ADJUSTER PM AUTOMATIC PINSETTER ADJUSTER Narrative HP CONVERSION - 03/07/2013 2:28 PM AUTOMATIC PINSETTER ADJUSTER Performed at [facility], [address] [place] [address] Millicent Nieves MD LAB_1 Performing Organization Address City/State/ZIP Code Phon e Number HP CONVERSION (ABNORMAL) Complete Blood Count W/Diff (03/07/2013 1:53 PM AUTOMATIC PINSETTER ADJUSTER) [facility] Method Time Signature White Blood [...] Volume Laterality 03/07/2013 1:53 PM 3 1:52 AUTOMATIC PINSETTER ADJUSTER PM AUTOMATIC PINSETTER ADJUSTER Narrative HP CONVERSION - 03/07/2013 2:25 PM AUTOMATIC PINSETTER ADJUSTER Performed at [facility], [address] [place] [address] Millicent Nieves MD LAB_1 Performing Organization Address City/[facility] Phon e Number HP CONVERSION Valproic Acid (Depakene) (03/07/2013 1:53 PM AUTOMATIC PINSETTER ADJUSTER) [facility] Method Time Signature Date Last Dose 03/06/2013 HP CONVERSION Valproic Acid Time Last Dose 10.00 HP CONVERSION Valproic Acid Valproic 98 50 - 100 HP CONVERSION Acid/Depakene ug/mL (Valp) Specimen Anatomical Collection Method Collection Time Receive d Time (Source) Location / / Volume Laterality 03/07/2013 1:53 PM 3 6:13 AUTOMATIC PINSETTER ADJUSTER PM AUTOMATIC PINSETTER ADJUSTER Transcriptions 03/07/2013 3:26 PM CSTNotes Recorded by Gina Ash MD on 03/07/2013 at 9:[address] Nieves review on 03/08/13. Millicent Nieves MD LAB_1 Performing Organization Address City/State/ZIP Code Phon e Number HP CONVERSION Occult Blood, Exam 1 (03/07/2013 1:52 PM AUTOMATIC PINSETTER ADJUSTER) [facility] Method Time Signature Occult Blood, Negative Negative HP CONVERSION Stool #1 Date/Time #1 11,132,013 HP CONVERSION Specimen Anatomical Collection Method Collection Time Receive d Time (Source) Location / / Volume Laterality 03/07/2013 1:52 PM 3 1:57 AUTOMATIC PINSETTER ADJUSTER PM AUTOMATIC PINSETTER ADJUSTER Narrative HP CONVERSION - 03/07/2013 2:00 PM AUTOMATIC PINSETTER ADJUSTER Performed at [facility], [address] [place] [address] Millicent Nieves MD LAB_1 Performing Organization Address [facility] Phon e Number HP CONVERSION URINE MICROSCOPIC (03/07/2013 1:37 PM AUTOMATIC PINSETTER ADJUSTER) athologist Signature Urine WBC 0-2 0 - 4 /HPF HP CONVERSION Urine RBC None seen 0 - 2 /HPF HP CONVERSION Specimen Anatomical Collection Method Collection Time Receive d Time (Source) Location / / Volume Laterality 03/07/2013 1:37 PM 3 1:55 AUTOMATIC PINSETTER ADJUSTER PM AUTOMATIC PINSETTER ADJUSTER Narrative HP CONVERSION - 03/07/2013 2:05 PM AUTOMATIC PINSETTER ADJUSTER Performed at [place] [address] Millicent Nieves MD LAB_1 Performing Organization Address [facility] Phon e Number HP CONVERSION (ABNORMAL) URINALYSIS ROUTINE(MICRO IF POS) (03/07/2013 1:37 PM AUTOMATIC PINSETTER ADJUSTER) [facility] Method Time Signature Urine Type [...] U Specific 1.015 1.005 - HP CONVERSION [place] 1.030 Urobilinogen Negative Negative HP CONVERSION Urine Eu/dL Specimen Anatomical Collection Method Collection Time Receive d Time (Source) Location / / Volume Laterality Urine: 03/07/2013 1:37 PM 3 1:55 AUTOMATIC PINSETTER ADJUSTER PM AUTOMATIC PINSETTER ADJUSTER Narrative HP CONVERSION - 03/07/2013 2:05 PM AUTOMATIC PINSETTER ADJUSTER Performed at [facility] [address], [place] [address] Millicent Nieves MD LAB_1 Performing Organization Address City/[facility] Code Phon e Number HP CONVERSION BGS NO CHARGE (03/07/2013 1:24 PM AUTOMATIC PINSETTER ADJUSTER) athologist Signature Bedside Blood 158 mg/dL HP CONVERSION Glucose Test Comment: Performed at [facility], [address] , [place]. [address] Specimen Anatomical Collection Method Collection Time Receive d Time (Source) Location / / Volume Laterality 03/07/2013 1:24 PM 3 1:30 AUTOMATIC PINSETTER ADJUSTER PM AUTOMATIC PINSETTER ADJUSTER Millicent Nieves MD LAB_1 Performing Organization Address City/[facility] Code Phon e Number [...] he has not taken any meds today. MATIC PINSETTER ADJUSTER documented in this encounter Care Teams Claim Professional Relationship Specialty Start Date End Date Gaganedep Hinojosa MD PCP - General 05/17/12 1415 [facility] [place] [id number] Vane Zarate Psychiatrist Psychiatry 03/22/12 documented as of this encounter
--- OUTSIDE RECORDS SUMMARY | 2022-03-14 18:48 | XMS_ITS | Encounter Summary ---
:1970 Author [facility] Address [address] [place] [address] Care Team Providers Name Role Phone Gagandeep Hinojosa MD Primary Care Provider Encounter Details Date Type Department Care Team Description 02/14/2013 Lab Visit [facility] Coronary atherosclerosis of unspecified type of vessel, [place] or graft; [address] Type II or unspecified type diabetes mellitus without mention of complication, uncontrolled [place] [address] Social History Tobacco Use Types Packs/Day Years [...] unspecified type of the resu lts vessel, [place] or graft sect ion. ([facility]) Type II [...] (ABNORMAL) Microalb/Creat Ratio (02/14/2013 11:47 AM CDT) [facility] Method Time Signature Microalbumin 108.0 mg/L HP [...] - 02/14/2013 6:19 PM CDT Performed at [facility], [address] [place] [address] Gagandeep Hinojosa MD LAB_1 Performing Organization Address City/[facility] Code Phon e [...] Direct LDL(If Needed) (02/14/2013 10:57 AM CDT) [facility] Method Time Signature Cholesterol 216 (H) 0 [...] - 02/14/2013 6:03 PM CDT Performed at [facility], [address] [place] [address] Gagandeep Hinojosa MD LAB_1 Performing Organization Address City/State/ZIP Code Phon e Number HP CONVERSION documented in this encounter Visit Diagnoses Diagnosis Coronary atherosclerosis of unspecified type of vessel, [place] or graft ([facility]) Coronary atherosclerosis of unspecified type of vessel, [place] or graft Type II or unspecified type diabetes jasen litus without mention of complication, uncontrolled documented in this encounter Care Teams Director Client Services Relationship Specialty Start Date End Date Gagandeep Hinojosa MD PCP - General 05/17/12 14[address] [place] [address] Vane Zarate Psychiatrsamantha Psychiatry 03/22/12 documented as of this encounter
--- OUTSIDE RECORDS SUMMARY | 2022-03-14 18:49 | XMS_ITS | Encounter Summary ---
:1970 Author Organization [place] [facility] Address [address], [place] [address] Care Team Providers Name Role Phone Lilian Persaud Primary Care Provider Reason for Visit Reason Comments Care Coordination Encounter Details Date Type Department Care Team Description 04/03/2012 Telephone [facility] Care Dyana Valdez, Care Coordination Management NOTCHING MACHINE OPERATOR, BORDER POLICE [address] [place] [address] [phone] Social History Tobacco Use Types Packs/Day Years Used Date Smoking Tobacco: Never Assessed Sex Assigned at Date Recorded Not on file documented as of this encounter Nursing Notes Dyana Valdez - 04/03/2012 11:46 AM CST 04/03/12 Reached out to pt and offered Nurse Metallurgist Process svcs, as well as a home visit. Pt declines participation at this time stating he is currently with the care attendant in clinic to manage his Diabetes. Provided direct # for future questions/needs/changes and advised him svcs are at no charge, feel freeto contact in the future if interested - agrees to do so. Dyana Valdez RN Nurse Online Marketing Director [phone] (O) [phone] (C) [facility] Office of Population [facility] documented in this encounter Plan of Treatment Not on filedocumented as of this encounter Visit Diagnoses Not on filedocumented in this encounter Care Teams Mixed Livestock Farmer Relationship Specialty Start Date End Date Lilian Persaud DO PCP - General 12/23/10 05/16/12 [address] [place] [address] Vane Zarate Psychiatrsamantha Psychiatry 03/22/12 documented as of this encounter
--- OUTSIDE RECORDS SUMMARY | 2022-03-14 18:49 | XMS_ITS | Encounter Summary ---
:1970 Author Organization [facility] Address [address] [place] [address] Care Team Providers Name Role Phone Gagandeep Hinojosa MD Primary Care Provider Encounter Details Date Type Department Care Team Description 05/17/2012 Lab Visit [facility] Type II or unspecified type 1415 [facility] . diabetes mellitus without [place] [address] mention of complication, uncontrolled Social History Tobacco Use Types Packs/Day Years Used Date Smoking Tobacco: Never Assessed Sex Assigned at Date Recorded Not on file documented as of this encounter Plan of Treatment Not on filedocumented as of this encounter Procedures Procedure Name Priority Date/Time Associated Diagnosis Comme nts HGB A1C Routine 05/17/2012 10:35 AM Type II or unspecifie d Results for this TURRET LATHE SET UP OPERATOR type diabetes mellitus proce dure are in without mention of the resul ts complication, section. uncontrolled (HRC) documented in this encounter Results (ABNORMAL) Hgb A1c (05/17/2012 10:35 AM TURRET LATHE SET UP OPERATOR) P athologist Signature HGB A1C 10.2 (H) 0.0 - 6.0 % HP CONVERSION Specimen Anatomical Collection Method Collection Time Receive d Time (Source) Location / / Volume Laterality 05/17/2012 10:35 05/17/2012 4:14 AM TURRET LATHE SET UP OPERATOR PM TURRET LATHE SET UP OPERATOR Gagandeep Hinojosa MD LAB_1 Performing Organization Address City/State/ZIP Code Phon e Number HP CONVERSION documented in this encounter Visit Diagnoses Diagnosis Type II or unspecified type diabetes jasen litus without mention of complication, uncontrolled documented in this encounter Care Teams Forest Examiner Relationship Specialty Start Date End Date Gagandeep Hinojosa MD PCP - General 05/17/12 1415 [facility] [place] [address] Vane Zarate Psychiatrist Psychiatry 03/22/12 documented as of this encounter
--- OUTSIDE RECORDS SUMMARY | 2022-03-14 18:49 | XMS_ITS | Encounter Summary ---
:1970 Author Organization [facility] Address [address] [place] [address] Care Team Providers Name Role Phone Lilian Persaud DO Primary Care Provider Encounter Details Date Type Department Care Team Description 05/08/2012 Notes/Orders Gagandeep Storm Type II or unspecified Medicine MD Joanne type diabetes mellitus 1415 [facility] . 1415 [facility] without mention of [place] [address] [place] complication, [place] VIGIL [phone] uncontrolled (Primary [phone] Dx) (Work) Social History Tobacco Use Types Packs/Day Years Used Date Smoking Tobacco: Never Assessed Sex Assigned at Date Recorded Not on file documented as of this encounter Plan of Treatment Not on filedocumented as of this encounter Visit Diagnoses Diagnosis Type II or unspecified type diabetes jasen litus without mention of complication, uncontrolled - Primary documented in this encounter Care Teams Investigator Vice Relationship Specialty Start Date End Date Lilian Persaud DO PCP - General 12/23/10 05/16/12 [address] [place] PEREZ [id number] Vane Zarate Psychiatrsamantha Psychiatry 03/22/12 documented as of this encounter
--- OUTSIDE RECORDS SUMMARY | 2022-03-14 18:49 | XMS_ITS | Encounter Summary ---
:1970 Author Organization [facility] Address [address] [place] [address] Care Team Providers Name Role Phone Cori Lilian Luther DO Primary Care Provider Encounter Details Date Type Department Care Team Description 04/07/2012 Notes/Orders [facility] Herlinda De Santiago, ROBYN Mass on back 1415 [facility] [place] [address] Social History Tobacco Use Types Packs/Day Years [...] Neck, Head Other Impressions 04/06/2012 12:00 AM FINANCIAL ANALYSIS CONSULTANT IMPRESSION: ??No sonographic abnormality identified. ??The findings were discussed with the patient at the t sadia of the examination. Narrative 04/06/2012 12:00 AM FINANCIAL ANALYSIS CONSULTANT Imaging performed at [facility]: [...] sadia of the examination. Gagandeep Hinojosa MD [facility] US documented in this encounter Visit Diagnoses Diagnosis Mass on back Localized superficial swelling, mass, or lump documented in this encounter Care Teams Warping Mill Operator Relationship Specialty Start Date End Date Lilian Persaud DO PCP - General 12/23/10 05/16/12 1415 [facility] [place] [address] Vane Zarate Psychiatrsamantha Psychiatry 03/22/12 documented as of this encounter
--- OUTSIDE RECORDS SUMMARY | 2022-03-14 18:49 | XMS_ITS | Encounter Summary ---
:1970 Author Organization [facility] Address [address] [place] [address] Care Team Providers Name Role Phone Gagandeep Hinojosa MD Primary Care Provider Reason for Visit Reason Comments Refill Encounter Details Date Type Department Care Team Description 07/24/2012 Refill [place] [employer] [facility] Franck Greene MD Refill SERVICES [address] [place] [employer] [address] [place] [address] [place] [address] (Wo rk) Social History Tobacco [...] filedocumented in this encounter Care Teams Power Plant Supervisor Relationship Specialty Start Date End Date Gagandeep Hinojosa MD PCP - General 05/17/12 14[address] [place] [id number] Vane Zarate Psychiatrist Psychiatry 03/22/12 documented as of this encounter
--- OUTSIDE RECORDS SUMMARY | 2022-03-14 18:49 | XMS_ITS | Encounter Summary ---
:1970 Author [facility] Address [address], [place] [address] Care Team Providers Name Role Phone CoriLilian li Homa SAL Primary Care Provider Reason for Visit Reason Comments RESULTS, TEST Encounter Details Date Type Department Care Team Description 04/07/2012 Telephone [facility] Gagandeep Hinojosa MD RESULTS, TEST 1415 [facility] . 1415 [place] [address] [place] [address] [phone] (Wo rk) Social History Tobacco Use Types [...] forwarded to scheduling dept to contact pt CAL ILLUSTRATOR Gagandeep Hinojosa MD - 04/07/2012 2:18 PM CST Call pt. U/S showeed no lesions. Would refer to general surgery. Refereral done CAL ILLUSTRATOR Denita Reyes, RN - 04/07/2012 2:13 PM CST US results in Epic. To Dr. Hinojosa for interpretation. CAL ILLUSTRATOR Ale Fountain - 04/07/2012 2:06 PM CST Patient states had a ultrasound done on 04-06-12 and they did not find anything and asking if he should see doctor again for more tests. CAL ILLUSTRATOR documented in this encounter Plan of Treatment Not on filedocumented as of this encounter Visit Diagnoses Diagnosis Soft tissue mass - Primary Disorders of soft tissue, unspecified documented in this encounter Care Teams Transit Planner Relationship Specialty Start Date End Date Lilian Persaud DO PCP - General 12/23/10 05/16/12 1415 [place] [address] Vane Zarate Psychiatrsamantha Psychiatry 03/22/12 documented as of this encounter
--- OUTSIDE RECORDS SUMMARY | 2022-03-14 18:49 | XMS_ITS | Encounter Summary ---
:1970 Author Organization [facility] Address [address] [place] [address] Care Team Providers Name Role Phone Cori, Lilian Luther DO Primary Care Provider Reason for Visit Reason Comments Abscess Encounter Details Date Type Department Care Team Description 04/06/2012 Office Visit Gagandeep Storm on back (Primary Medicine MD Joanne Dx) 1415 [facility] . [address] [place] [address] Ave [phone] [place], [place] [address] Social History Tobacco Use [...] He was seen in urgent care at [place] about a week or so ago and [...] lump documented in this encounter Care Teams Broom Maker Relationship Specialty Start Date End Date Lilian Persaud DO PCP - General 12/23/10 05/16/12 1415 [place] [address] Vane Zarate Psychiatrsamantha Psychiatry 03/22/12 documented as of this encounter
--- OUTSIDE RECORDS SUMMARY | 2022-03-14 18:49 | XMS_ITS | Encounter Summary ---
:1970 Author Organization [facility] Address [address] [place] [address] Care Team Providers Name Role Phone Gagandeep Hinojosa MD Primary Care Provider Reason for Visit Reason Comments Follow-up Encounter Details Date Type Department Care Team Description 11/07/2012 Office Visit Gagandeep Storm Type II or unspecified type diabetes mellitus without mention of complication, uncontrolled (Primary Dx); Romario Rubio MD Tobacco abuse; 1415 [place] 1415 [facility] Coronary atherosclerosis of unspecified type of vessel, akhiok or graft; Ave. Ave Left shoulder pain [place] [address] [place] [phone] Social History Tobacco Use Types Packs/Day Years [...] He was transferred to [facility], and underwent angiography, which showed no acute lesions. Nonetheless, he is now motivated to discontinue smoking, and he is on nicotine patch. His diabetes seems to be well-controlled, although he obtains his [id number] from an outside agency. Labs are pending. [...] Anemia, unspecified 05/02/2012 ??? Microalbuminuria 02/04/2012 ??? HI, old 09/16/2011 ??? History of PTCA 04/2011 [...] is negative, although he does have pain. [place]'s is negative. He has decreased internal rotation [...] Coronary atherosclerosis of unspecified type of vessel, akhiok or graft (HRC) Coronary atherosclerosis of unspecified type of vessel, akhiok or graft Left shoulder pain Pain in joint, shoulder region documented in this encounter Care Teams Cosmetics Supervisor Relationship Specialty Start Date End Date Gagandeep Hinojosa MD PCP - General 05/17/12 [facility] [place]ber [address] Vnae Zarate Psychiatrist Psychiatry 03/22/12 documented as of this encounter
--- OUTSIDE RECORDS SUMMARY | 2022-03-14 18:49 | XMS_ITS | Encounter Summary ---
:1970 Author Organization [facility] Address [address] [place] [address] Care Team Providers Name Role Phone Gagandeep Hinojosa MD Primary Care Provider Encounter Details Date Type Department Care Team Description 05/17/2012 Notes/Orders Vane Durbin, Encounter for long-term 1415 BladenCammie Bonds MD (current) use of other [place] Vigil [id number] medications (Primary [phone] HEAVEN [address] Dx) [place] [address] Social History Tobacco Use Types Packs/Day Years Used Date Smoking Tobacco: Never Assessed Sex Assigned at Date Recorded Not on file documented as of this encounter Plan of Treatment Not on filedocumented as of this encounter Visit Diagnoses Diagnosis Encounter for long-term (current) use of other medications - Primary documented in this encounter Care Teams Principal Electrical Engineer Relationship Specialty Start Date End Date Gagandeep Hinojosa MD PCP - General 05/17/12 14[address] [place] [address] Vane Zarate Psychiatrist Psychiatry 03/22/12 documented as of this encounter
--- OUTSIDE RECORDS SUMMARY | 2022-03-14 18:49 | XMS_ITS | Encounter Summary ---
:1970 Author Organization [facility] Address [address], [place] [address] Care Team Providers Name Role Phone CoriLilian li Homa SAL Primary Care Provider Reason for Referral Specialty Diagnoses / Procedures Referred By Contact Refer red To Contact Gagandeep Hinojosa MD 1415 [facility] [place] [place] [address] Referral ID Status Reason Start Date Expiration Date Visits Requ ested Visits Authorized CTOR COST Reason for Visit Reason Comments CONSULT MASS Encounter Details Date Type Department Care Team Description 04/10/2012 Initial Consult [place] 1515 Jim Farrell, Soft tis leydi mass; General Surgery Lipoma of other skin and subcutaneous ti ssue 1515 [place] 1515 [facility] [place] [address] [place] [phone] [id number] Social History Tobacco Use Types Packs/Day Years [...] 104.3 kg (230 lb) 04/10/2012 10:56 AM DIRECTOR COST Height 177.8 cm (5' 10) 04/10/2012 10:56 AM DIRECTOR COST Body Mass Index 33 04/10/2012 10:56 AM DIRECTOR COST documented in this encounter Progress Notes Jim [...] 5' 10 (177.8 cm) Wt 230 lb (595161 g) BMI 33.00 kg/m2 GENERAL APPEARANCE: Timur [...] mood and affect congruent Imaging performed at [facility]: ULTRASOUND OF THE TWO PALPABLE LUMPS [...] ssue documented in this encounter Care Teams Cake Press Operator Helper Relationship Specialty Start Date End Date Lilian Persaud DO PCP - General 12/23/10 05/16/12 [address] [place] [address] Vane Zarate Psychiatrsamantha Psychiatry 03/22/12 documented as of this encounter
--- OUTSIDE RECORDS SUMMARY | 2022-03-14 18:49 | XMS_ITS | Encounter Summary ---
:1970 Author Organization [facility] Address [address] [place] [address] Care Team Providers Name Role Phone Lilian Persaud DO Primary Care Provider Reason for Visit Reason Comments CYST Encounter Details Date Type Department Care Team Description 04/05/2012 Nurse Triage [facility] Lilian Persaud DO CYST 1415 [facility] . [address] [place] [address] [place] [address] [phone] (Wo rk) Social History Tobacco Use Types Packs/Day Years Used Date Smoking Tobacco: Never Assessed Sex Assigned at Date Recorded Not on file documented as of this encounter Nursing Notes Yoana Riley RN - 04/05/2012 8:58 PM CST Protocol: SKIN LUMP OR LOCALIZED [id number] Affirmative: [1] Swelling is painful to touch AND [2] no fever Disposition of See Physician Within 24 Hours suggested. Patient calling. Was seen at [facility] last week for infected sabascious cyst [...] on filedocumented in this encounter Care Teams Bookmaker Map Relationship Specialty Start Date End Date Lilian Persaud DO PCP - General 12/23/10 05/16/12 [address] [place] [id number] Vane Zarate Psychiatrsamantha Psychiatry 03/22/12 documented as of this encounter
--- OUTSIDE RECORDS SUMMARY | 2022-03-14 18:49 | XMS_ITS | Encounter Summary ---
:1970 Author Organization [facility] Address [address] [place] [address] Care Team Providers Name Role Phone Lilian Persaud DO Primary Care Provider Reason for Visit Reason Comments Refill Encounter Details Date Type Department Care Team Description 05/04/2012 [facility] Lilian Persaud, [facility] [facility] [address] [facility] [place] [address] [place] [address] [phone] (Wo rk) Social History Tobacco Use Types Packs/Day Years Used Date Smoking Tobacco: Never Assessed Sex Assigned at Date Recorded Not on file documented as of this encounter Nursing Notes Denita Reyes, JOSETTE - 05/05/2012 2:19 PM CST Renewed medication per medication refill protocol. Prescription Refills Approved Prescriptions Disp Refills ??? lisinopril (PRINIVIL, ZESTRIL) 5 mg tablet 90 tablet 0 Sig: TAKE 1 TABLET BY MOUTH DAILY . Authorizing Provider: FLORI LEBLANC Ordering User: DENITA REYES Appt scheduled for 05/09/12. OPERATOR Cordelia Leyva RN - 05/05/2012 9:26 AM CST last OV 02/01/12. Plan was to see patient and have labs done in 3 months. Left message to call back to schedule appt. documented in this encounter Plan of Treatment Not on filedocumented as of this encounter Visit Diagnoses Not on filedocumented in this encounter Care Teams Gear Lapping Machine Operator Relationship Specialty Start Date End Date Lilian Persaud DO PCP - General 12/23/10 05/16/12 1415 [place] [address] Vane Zarate Psychiatrsamantha Psychiatry 03/22/12 documented as of this encounter
--- OUTSIDE RECORDS SUMMARY | 2022-03-14 18:49 | XMS_ITS | Encounter Summary ---
:1970 Author Organization [facility] Address [address] [place] [address] Care Team Providers Name Role Phone Gagandeep Hinojosa MD Primary Care Provider Reason for Visit Reason Comments Appt. Needed Encounter Details Date Type Department Care Team Description 02/06/2013 Telephone [facility] Gagandeep Hinojosa MD Appt. Needed 1415 [facility] . 1415 [place] [address] [place] [address] [phone] (Wo rk) Social History Tobacco Use Types Packs/Day Years Used Date Smoking Tobacco: Never Assessed Sex Assigned at Date Recorded Not on file documented as of this encounter Plan of Treatment Not on filedocumented as of this encounter Visit Diagnoses Not on filedocumented in this encounter Care Teams Full Time Relationship Specialty Start Date End Date Gagandeep Hinojosa MD PCP - General 05/17/12 1415 [place] [address] Vane Zarate Psychiatrist Psychiatry 03/22/12 documented as of this encounter
--- OUTSIDE RECORDS SUMMARY | 2022-03-14 18:49 | XMS_ITS | Encounter Summary ---
:1970 Author Organization [facility] Address [address] [place] [address] Care Team Providers Name Role Phone Gagandeep Hinojosa MD Primary Care Provider Reason for Visit Reason Comments Refill Encounter Details Date Type Department Care Team Description 02/09/2013 Refill [facility] Gagandeep Hinojosa MD Refill [facility]15 [facility] . 1415 [place] [address] [place] [address] [phone] (Wo rk) Social History Tobacco Use Types [...] visit on 11/07/12 Last Labs: 10/26/12 staff radiation therapist action: Please route to Frontline to schedule [...] Primary documented in this encounter Care Teams Electric Motor Rebuilder Relationship Specialty Start Date End Date Gagandeep Hinojosa MD PCP - General 05/17/12 1415 [facility] [place] [address] Vane Zarate Psychiatrist Psychiatry 03/22/12 documented as of this encounter
--- OUTSIDE RECORDS SUMMARY | 2022-03-14 18:49 | XMS_ITS | Encounter Summary ---
:1970 Author Organization [facility] Address [address] [place] [address] Care Team Providers Name Role Phone Gagandeep Hinojosa MD Primary Care Provider Reason for Visit Reason Comments Diabetes Encounter Details Date Type Department Care Team Description 05/17/2012 Office Visit Gagandeep Storm Type II or unspecified type diabetes mellitus without mention of complication, uncontrolled (Primary Dx); Romario Rubio MD Proteinuria; [address] [place] Unspecified essential hypert ension; [place] Vig[place] [address] [address] Other and unspecified hyperlipidemia; [phone] [place] VIGIL [phone] Tobacco use disorder; [phone] Obesity, unspec ified (Work) Social History Tobacco Use Types Packs/Day Years Used Date Smoking Tobacco: Never Assessed Sex Assigned at Date Recorded Not on file documented as of this encounter Last Filed Vital Signs Vital Sign Reading Time Taken Comments Blood Pressure 139/97 05/17/2012 11:03 AM LAWYERS omron Pulse 84 05/17/2012 10:54 AM LAWYERS Temperature - - Respiratory Rate - - Oxygen Saturation - - Inhaled Oxygen Concentration - - Weight 104.8 kg (231 lb) 05/17/2012 10:54 AM LAWYERS Height 177.8 cm (5' 10) 05/17/2012 10:54 AM LAWYERS Body Mass Index 33.15 05/17/2012 10:54 AM LAWYERS documented in this encounter Patient Instructions Patient [...] A normal value is less than 30. ERS documented in this encounter Progress Notes Gagandeep [...] documented in this encounter Care Teams Filling Hauler Relationship Specialty Start Date End Date Gagandeep Hinojosa MD PCP - General 05/17/12 1415 [facility] [place] [address] Vane Zarate Psychiatrist Psychiatry 03/22/12 documented as of this encounter
--- OUTSIDE RECORDS SUMMARY | 2022-03-14 18:49 | XMS_ITS | Encounter Summary ---
:1970 Author Organization [facility] Address [address] [place] [address] Care Team Providers Name Role Phone Lilian Persaud DO Primary Care Provider Reason for Visit Reason Comments Care Coordination Encounter Details Date Type Department Care Team Description 03/09/2012 [facility] Lilian Persaud DO Care Coordination 1415 [facility] . [address] [place] [address] [place] [address] [phone] (Wo rk) Social History Tobacco Use Types Packs/Day Years Used Date Smoking Tobacco: Never Assessed Sex Assigned at Date Recorded Not on file documented as of this encounter Nursing Notes Judy Pittman RN - 03/14/2012 1:12 PM CST Return phone call from Geoffrey. Easton states he and his have recently returned from [place] and he is interested in care coordination. Rustam notes his BG has been elevated because he has been forced to ration his insulin due to financial constraints. Rustam knows his last A1c was high at 10.6. Rustam is currently using the generic Relion brand from [employer], but has fallen into the Medicare doughnut hole and cannot afford his insulin. Rustam is also interested in working on his diet. I scheduled an appt for care coordination on 03/22/12. I provided my contact information. Judy Pittman RN - 03/09/2012 10:06 AM CST I left a message for Timur asking for a return call with an update on his status. Please transferto [phone]. documented in this encounter Plan of Treatment Not on filedocumented as of this encounter Visit Diagnoses Not on filedocumented in this encounter Care Teams Machine Deicer Element Winder Relationship Specialty Start Date End Date Lilian Persaud DO PCP - General 12/23/10 05/16/12 1415 [place] [address] documented as of this encounter
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
--- OUTSIDE RECORDS SUMMARY | 2022-03-14 18:49 | XMS_ITS | Encounter Summary ---
:1970 [facility] Address [address] [place] [address] Care Team Providers Name Role Phone Lilian Persaud DO Primary Care Provider Reason for Visit Reason Comments Questions Encounter Details Date Type Department Care Team Description 03/14/2012 [facility]phone [facility]aud, Questions [address] [facility] . [address] [place] [address] [place] [address] [phone] (Wo rk) Social History Tobacco Use Types [...] plan of care and follow up. Y WIRE DRAWER Brielle Meza RN - 03/14/2012 1:45 PM CST Patient calling to ask if his visit with his State Manager on 03/22/12 qualifies as a visit with Dr. Persaud, as he is due for a follow-up visit with her. His financial situation is very difficult at this time. He stated his sugars are coming down slowly since his labs were done 02/01/12. Told patient either myself or his State Manager would return a call to him regarding this issue. Patient comfortable with this plan. Y WIRE DRAWER Freya Mukherjee - 03/14/2012 11:58 AM CST pt states he received letter from Dr. Persaud. pt is wondering if Dr. Persaud would like to see him to follow up. Please call to discuss. Y WIRE DRAWER documented in this encounter Plan of Treatment Not on filedocumented as of this encounter Visit Diagnoses Not on filedocumented in this encounter Care Teams Rice Drier Relationship Specialty Start Date End Date Lilian Persaud DO PCP - General 12/23/10 05/16/12 [address] [place] [place] [address] documented as of this encounter
--- OUTSIDE RECORDS SUMMARY | 2022-03-14 18:49 | XMS_ITS | Encounter Summary ---
:1970 Author Organization [facility] Address [address] [address] Care Team Providers Name Role Phone Gagandeep Hinojosa MD Primary Care Provider Reason for Visit Reason Comments Diabetes Encounter Details Date Type Department Care Team Description 05/24/2012 Telephone [place] Judy Pittman RN Diabetes [address] [facility] . [address] [place] [address] [place] [address] [phone] Social History Tobacco Use Types Packs/Day Years Used Date Smoking Tobacco: Never Assessed Sex Assigned at Date Recorded Not on file documented as of this encounter Nursing Notes Judy Pittman RN - 05/24/2012 2:15 PM CST RN Executive Meeting Manager - Diabetes Phone Follow-Up Current diabetes medication [...] part-time job. Rustam has been over to [employer], they have set up with some temporary [...] filedocumented in this encounter Care Teams Electronic News Gathering Camera Person Relationship Specialty Start Date End Date Gagandeep Hinojosa MD PCP - General 05/17/12 [facility] [place] [address] Vane Zarate Psychiatrsamantha Psychiatry 03/22/12 documented as of this encounter
--- OUTSIDE RECORDS SUMMARY | 2022-03-14 18:49 | XMS_ITS | Encounter Summary ---
:1970 Author Organization [facility] Address [address] [place] [address] Care Team Providers Name Role Phone Gagandeep Hinojosa MD Primary Care Provider Reason for Visit Reason Comments Post Hospital Discharge Follow Up Encounter Details Date Type Department Care Team Description 10/28/2012 Telephone [facility] Gagandeep Hinojosa, Post Hospital Discharge Medicine MD Follow Up [address] [facility] . [address] [place] [address] [place] [address] [phone] (Wo rk) Social History Tobacco Use Types [...] on filedocumented in this encounter Care Teams Mobility Architect Manager Relationship Specialty Start Date End Date Gagandeep Hinojosa MD PCP - General 05/17/12 [address] [place], [place] [address] Vane Zarate Psychiatrist Psychiatry 03/22/12 documented as of this encounter
--- OUTSIDE RECORDS SUMMARY | 2022-03-14 18:49 | XMS_ITS | Encounter Summary ---
:1970 Author [facility] Address [address], [place] [address] Care Team Providers Name Role Phone Lilian Persaud DO Primary Care Provider Reason for Visit Reason Comments Diabetes Encounter Details Date Type Department Care Team Description 03/29/2012 [facility] DO Diabetes [address] [facility] . [address] [place] [address] [place] [address] [phone] (Wo rk) Social History Tobacco Use Types Packs/Day Years Used Date Smoking Tobacco: Never Assessed Sex Assigned at Date Recorded Not on file documented as of this encounter Nursing Notes Judy Pittman RN - 03/29/2012 10:42 AM CST Left a message for Rustam for a return call. Please transfer to [phone]. RN Sales Representative Supervisor - Diabetes Phone Follow-Up Current diabetes medication [...] his last visit, but he did go [id number] yesterday morning. He thinks the increase in [...] follow up appt. I printed off the [employer] Patient Assistance application to complete at the follow up visit. Rustam verbalized understanding and agreed with plan of care and follow up. documented in this encounter Plan of Treatment Not on filedocumented as of this encounter Visit Diagnoses Not on filedocumented in this encounter Care Teams Accounting Generalist Relationship Specialty Start Date End Date Lilian Persaud DO PCP - General 12/23/10 05/16/12 [address] [place] [place] [address] Vane Mirza Psychiatry 03/22/12 documented as of this encounter
--- OUTSIDE RECORDS SUMMARY | 2022-03-14 18:49 | XMS_ITS | Encounter Summary ---
:1970 Author Organization [employer] Address [address] [place] [address] Care Team Providers Name Role Phone Gagandeep Hinojosa MD Primary Care Provider Encounter Details Date Type Department Care Team Description 10/25/2012 - Hospital Encounter Yarsani 3S Monica Valle, MBBS [address] [place], [place] [address] ACS (acute coronary 10/27/2012 Med-Coronary Zoie Khanna, DO [address] [place], [place] [address] syndrome) (Primary Outpatient 3S [facility] Dx) [address] [place], [place] [address] Social History Tobacco Use Types Packs/Day Years [...] Filed: 11/01/121924 Note Time: 10/27/121657 Status: Signed Faucets Assembler: REINA Wharton (Physician) NAME: SHARLENE KRISHNAMURTHY MR#: [id number] CSN: [id number] AUTHENTICATING CLINICIAN: REINA Cool CONFIRM #: [id number] LOC: 1 HOSPITAL DISCHARGE SUMMARY DATE OF [...] also discussed with the at the bedside. [place]:MEDWendy C: CONFIRM #: [id number] documented in this encounter Medications at Time [...] of this encounter Progress Notes Vanessa Yee, EXCELLENCE SPECIALIST, BENEFIT SPECIALIST - 10/27/2012 4:53 PM CDT DISCHARGE O: [...] family. Vanessa Yee RN 5:08 PM 10/27/[address] - 10/27/2012 3:17 PM CDT NUTRITION [...] Direct 115 06/04/2011 1302 Patient Interview/Diet History: Luis Lopez/peanut butter for breakfast, sandwich or burger for [...] understanding of diet prescription. PROVIDER NAME Abbie Canton RD, LD Estevan Taylor MD - 10/27/2012 12:17 PM CDT Cardiology No obstructive disease of significance. He may be discharged. Same cardiac meds. Given his psychiatric problems, anxiety, etc, maybe should resume resperidone, too. Stop smoking. --[facility] Fabian Gutierrez MD - 10/27/2012 10:26 AM [...] ADMIT O: Admitted patient via cart from [facility] to bed # 3STH/3STH-05. D: Patient is [...] no imaging then. 2. ASHD Old inferior AZ 3.5 x 16 bare metal stent RCA Apr 2011 Bounce-back angio Apr 2011--stent patent, mid-PDA disease, modest LAD disease, LVEF 60 Normal nuc scan OCT 2011. [facility] CT cor angio showed 40-70% mid [...] Stop smoking. 3. He could go to --[facility] Estevan Taylor MD - 10/26/2012 11:13 AM CDT Consults signed by Estevan Taylor MD at 10/26/12 6531 Author: Estevan Taylor MD Service: (none) Author Type: Physician Filed: 10/26/12 6112 Note Time: 10/26/126 Status: Signed Faucets Assembler: Estevan Taylor MD (Physician) NAME: SHARLENE KRISHNAMURTHY MR#: [id number] CSN: [id number] AUTHENTICATING CLINICIAN: Estevan Taylor MD CONFIRM #: [id number] LOC: 1 HOSPITAL CONSULTATION DATE OF CONSULTATION: [...] stress nuclear scan. He was hospitalized in [place] in early September with chest pain and diabetes out of control. He had stopped taking his insulin because he could not afford it. He had no cardiac findings and was discharged without further cardiac evaluation, although plans were made for an outpatient stress echo. Yesterday, he again presented to the [place] Emergency Room with chest pain. The patient [...] then went to the emergency room in [place]. He was still having pain when he [...] descending plaque by CT angiogram yesterday at [place]. 3. Bipolar disorder, disabled because of this. [...] [facility]. CC: GAGANDEEP HINOJOSA MD [address] [facility] [place] [address] [facility]:MEDQ C: CONFIRM #: [id number] documented in this encounter OR Notes H&P - Juwangeorge Zoie Noni, - 10/26/2012 1:54 AM CDT HISTORY AND PHYSICAL Date of service 10/25/2012 Primary provider: Gagandeep Hinojosa HISTORY OF PRESENT ILLNESS: Chief complaint chest pain Medical records reviewed Pt is a 42 year old male with h/o CAD s/p BMS to the RCA 04/2011, uncontrolled diabetes mellitus and bipolar d/o He presented to [facility] today complaining of sudden onset of [...] diabetes Prior to admission medications reviewed in [facility] - see EMR for details. [...] ppx - ambulatory Code Status - full DO Jimena Harley Merigold Hospitalist documented in this encounter Miscellaneous Notes [...] Given Vanessa Yee RN - - 10/27/12 0756 charted under timed dose Other 0.9% sodium [...] had heparin infusing since admission; started at [place] running at 15.2 - heparin (porcine) 1,000 [...] Intravenous - 10/25/12 2332 pt transfer from [facility] with nitro infusing. Verified rate/dose/concentration. - [...] Intravenous - 10/26/122106 heparin infusing Other 10/26/12 0811 10 mL Given Dorie Barreto RN Intravenous [...] RN Subcutaneous - 10/27/12 1148 - - 10/26/128 76 Units Given Dorie Barreto RN Subcutaneous [...] Zoie Khanna DO LAB_1 Performing Organization Address [facility] Phon e Number HP CONVERSION BEDSIDE GLUCOSE MONITOR (10/27/2012 11:26 AM CDT) P athologist Signature Bedside Blood 182 mg/dL HP CONVERSION Glucose Test Specimen Anatomical Collection Method Collection Time Receive d Time (Source) Location / / Volume Laterality 10/27/2012 11:26 11/10/2012 AM CDT 12:30 PM CDT Zoie Khanna DO LAB_1 Performing Organization Address [facility] Phon e Number HP CONVERSION Cardiac Cath Procedure (10/27/2012 8:39 AM CDT) Specimen (Source) Anatomical Collection Method Collection Time Re ceived Time Location / / Volume Laterality 10/27/2012 8:39 AM CDT Narrative PN CENTRICITY - 10/27/2012 8:39 AM CDT [address] [place] [address] SHARLENEDUTCH KRISHNAMURTHY ?? [id number] Cardiovascular Catheterization Comprehen sive Report : 1970 Age: 42 years Gender: Male Study date: 10/27/2012 Test time: 10:03 - 10:25 Fluoro time: 8.5 min PPH Staff: ??Wendy Cali RN Diagnostic Set Up And Charger: ??FABIAN GUTIERREZ MD Tape Recorder Mechanic: ??Brandon Ta Scrub: ??Inderjit Larson RN Monitor: ??Екатерина Khalil CVAutumn X-ray Tech: ??Charles Washington RT Ordering Physician: ??Franck TAYLOR History and indications INDICATIONS ?? -- ??Angina/AZ: atypical chest pain. -- ??Coronary artery disease. Prior righ t coronary artery stent placement. Procedures PROCEDURES PERFORMED: -- ??Right coronary angiography. -- ??Left coronary angiography. NARRATIVE: The risks and alternatives of the procedures and conscious sedation were explained to the patient and informed consent was obtained. The patie nt was brought to the ammunition assembly i laborer and placed on the table. Th [...] PN CARDIAC CATH ORDERABLES Performing Organization Address [facility] Phon e Number PN CENTRICITY BEDSIDE GLUCOSE MONITOR (10/27/2012 7:52 AM CDT) athologist Signature Bedside Blood 223 mg/dL HP CONVERSION Glucose Test Specimen Anatomical Collection Method Collection Time Receive d Time (Source) Location / / Volume Laterality 10/27/2012 7:52 AM 3 8:05 CDT AM CDT Monica CUNNINGHAMBS LAB_1 Performing Organization Address [facility] Phon e Number HP CONVERSION Potassium (10/27/2012 6:12 AM CDT) athologist Signature Potassium 4.2 3.5 - 5.2 HP CONVERSION mEq/L Specimen Anatomical Collection Method Collection Time Receive d Time (Source) Location / / Volume Laterality 10/27/2012 6:12 AM 3 6:21 CDT AM CDT Zoie Noni Khanna DO LAB_1 Performing Organization Address [facility] Phon e Number HP CONVERSION (ABNORMAL) APTT (Activated Partial Thromboplastin Time) (10/27/2012 6:11 AM CDT) [facility] Method Time Signature Partial 58.5 (H) 25.0 - HP CONVERSION Thromboplastin 38.0 sec Time Specimen Anatomical Collection Method Collection Time Receive d Time (Source) Location / / Volume Laterality 10/27/2012 6:11 AM 3 6:21 CDT AM CDT Zoie Khanna DO LAB_1 Performing Organization Address [facility] Phon e Number HP CONVERSION BEDSIDE GLUCOSE MONITOR (10/26/2012 9:30 PM CDT) athologist Signature Bedside Blood 189 mg/dL HP CONVERSION Glucose Test Specimen Anatomical Collection Method Collection Time Receive d Time (Source) Location / / Volume Laterality 10/26/2012 9:30 PM 3 9:40 CDT PM CDT Monica CUNNINGHAM LAB_1 Performing Organization Address [facility]/ZIP Code Phon e Number HP CONVERSION BEDSIDE GLUCOSE MONITOR (10/26/2012 5:03 PM CDT) P athologist Signature Bedside Blood 181 mg/dL HP CONVERSION Glucose Test Specimen Anatomical Collection Method Collection Time Receive d Time (Source) Location / / Volume Laterality 10/26/2012 5:03 PM 3 5:05 CDT PM CDT Monica CUNNINGHAM LAB_1 Performing Organization Address [facility] Code Phon e Number HP CONVERSION BEDSIDE GLUCOSE MONITOR (10/26/2012 11:52 AM CDT) P athologist Signature Bedside Blood 149 mg/dL HP CONVERSION Glucose Test Specimen Anatomical Collection Method Collection Time Receive d Time (Source) Location / / Volume Laterality 10/26/2012 11:52 10/26/2012 AM CDT 12:00 PM CDT Zoie Khanna LAB_1 Performing Organization Address [facility] Phon e Number HP CONVERSION ECG 12 Lead Inpatient (10/26/2012 10:17 AM CDT) P athologist Signature Ventricular Rate 79 BPM MUSE GHP Atrial Rate 79 BPM MUSE GHP P-R Interval 148 ms MUSE GHP QRS Duration 94 ms MUSE GHP QT 380 ms MUSE GHP QTc 435 ms MUSE GHP P [place] 40 degrees MUSE GHP R [place] 11 degrees MUSE GHP T [place] 27 degrees MUSE GHP Specimen (Source) Anatomical Collection Method Collection Time Re ceived Time Location / / Volume Laterality 10/26/2012 10:17 AM CDT Narrative MUSE GHP - 07/29/2019 1:56 PM CDT Sinus rhythm Normal ECG When compared with ECG of 25-OCT-2012 19 :36, No significant change was found Confirmed by HAL HARGROVE ([id number]), offline editor PEPPER HERNANDEZ ([id number]) on 10/26/2012 2:20:40 PM Procedure Note Epic, Internal Processing - 08/01/2019Fo rmatting of this note might be different from the original. Sinus rhythm Normal ECG When compared with ECG of 25-OCT-2012 19 :36, No significant change was found Confirmed by HAL HARGROVE ([id number]), offline editor PEPPER HERNANDEZ ([id number]) on 10/26/2012 2:20:40 PM Estevan Taylor MD PN ECG ORDERABLES Performing Organization Address [facility] Code Phon e Number MUSE GHP [address] [place] [address] BEDSIDE GLUCOSE MONITOR (10/26/2012 8:13 AM CDT) athologist Signature Bedside Blood 251 mg/dL HP CONVERSION Glucose Test Specimen Anatomical Collection Method Collection Time Receive d Time (Source) Location / / Volume Laterality 10/26/2012 8:13 AM 3 8:45 CDT AM CDT Monica Valle MBBS LAB_1 Performing Organization Address [facility] Code Phon e Number HP CONVERSION (ABNORMAL) APTT (Activated Partial Thromboplastin Time) (10/26/2012 7:03 AM CDT) [facility] gist Method Time Signature Partial 76.4 (H) 25.0 - HP CONVERSION Thromboplastin 38.0 sec Time Specimen Anatomical Collection Method Collection Time Receive d Time (Source) Location / / Volume Laterality 10/26/2012 7:03 AM 3 7:46 CDT AM CDT Zoie Noni Khanna DO LAB_1 Performing Organization Address [facility] Code Phon e Number HP CONVERSION Potassium (10/26/2012 7:03 AM CDT) athologist Signature Potassium 4.5 3.5 - 5.2 HP CONVERSION mEq/L Specimen Anatomical Collection Method Collection Time Receive d Time (Source) Location / / Volume Laterality 10/26/2012 7:03 AM 3 7:46 CDT AM CDT Zoie Khanna DO LAB_1 Performing Organization Address [facility] Phon e Number HP CONVERSION (ABNORMAL) Hgb A1c (10/26/2012 7:03 AM CDT) athologist Signature HGB A1C 11.1 (H) 0.0 - 6.0 % HP CONVERSION Specimen Anatomical Collection Method Collection Time Receive d Time (Source) Location / / Volume Laterality 10/26/2012 7:03 AM 3 7:46 CDT AM CDT Zoie Khanna DO LAB_1 Performing Organization Address [facility] Phon e Number HP CONVERSION LABS CARD PROF TROPI 6 HRS (10/26/2012 2:07 AM CDT) athologist Signature Tropi At 6 Hrs <0.05 0.00 - HP CONVERSION 0.04 ng/mL Specimen Anatomical Collection Method Collection Time Receive d Time (Source) Location / / Volume Laterality 10/26/2012 2:07 AM 3 2:10 CDT AM CDT Zoie Khanna DO LAB_1 Performing Organization Address [facility] Phon e Number HP CONVERSION (ABNORMAL) APTT (Activated Partial Thromboplastin Time) (10/25/2012 10:11 PM CDT) [facility] gist Method Time Signature Partial 64.3 (H) 25.0 - HP CONVERSION Thromboplastin 38.0 sec Time Specimen Anatomical Collection Method Collection Time Receive d Time (Source) Location / / Volume Laterality 10/25/2012 10:11 10/25/2012 PM CDT 10:14 PM CDT Zoie Khanna DO LAB_1 Performing Organization Address [facility] Phon e Number HP CONVERSION [...] Zoie Khanna DO LAB_1 Performing Organization Address City/[facility]/ZIP Code Phon e Number HP CONVERSION CARD PROF TROPI 90 MIN (10/25/2012 9:53 PM CDT) P athologist Signature Tropi at 90 Min <0.05 0.00 - HP CONVERSION 0.04 ng/mL Specimen Anatomical Collection Method Collection Time Receive d Time (Source) Location / / Volume Laterality 10/25/2012 9:53 PM 3 CDT 10:08 PM CDT Zoie Khanna DO LAB_1 Performing Organization Address [facility] Code Phon e Number HP CONVERSION BEDSIDE GLUCOSE MONITOR (10/25/2012 9:38 PM CDT) P athologist Signature Bedside Blood 190 mg/dL HP CONVERSION Glucose Test Specimen Anatomical Collection Method Collection Time Receive d Time (Source) Location / / Volume Laterality 10/25/2012 9:38 PM 3 9:40 CDT PM CDT Zoie Khanna DO LAB_1 Performing Organization Address City/[facility]/ZIP Code Phon e Number HP CONVERSION INR/Protime (10/25/2012 [...] valves in the aortic position , acute AZ, valvular heart disease and atrial fibril lation. [...] Zoie Khanna DO LAB_1 Performing Organization Address City/[facility]/ZIP Code [...] Zoie Khanna DO LAB_1 Performing Organization Address [facility] Phon e Number HP CONVERSION [...] Zoie Khanna DO LAB_1 Performing Organization Address City/[facility]/ZIP [facility] Phon e Number HP CONVERSION CARDIAC PROFILE [...] GHP QTc 441 ms MUSE GHP P [place] 32 degrees MUSE GHP R [place] 19 degrees MUSE GHP T [place] 24 degrees MUSE GHP Specimen (Source) Anatomical [...] e Number MUSE GHP [address] [place] [address] MRSA Culture (10/25/2012 6:13 PM CDT) Component [...] Visit Diagnoses Diagnosis ACS (acute coronary syndrome) ([facility]) - Pr imary Intermediate coronary [...] has to do it for himself. Reports Catholic marita, no churchattendance. Spiritual care will remain available. Note completed by: Dianne Paris, [id number], pager [phone] End of Report documented in this encounter Care Teams Second Shift Supervisor Relationship Specialty Start Date End Date Gagandeep Hinojosa MD PCP - General 05/17/12 [address] [place] [place] [address] Vane Zarate Psychiatrsamantha Psychiatry 03/22/12 documented as of this encounter
--- OUTSIDE RECORDS SUMMARY | 2022-03-14 18:49 | XMS_ITS | Encounter Summary ---
:1970 Author Organization [facility] Address [address] [place] [address] Care Team Providers Name Role Phone Gagandeep Hinojosa MD Primary Care Provider Reason for Visit Reason Comments Treatment Plan Encounter Details Date Type Department Care Team Description 11/03/2012 Nurse Triage [place] [facility] Gagandeep Hinojosa, Treatment Plan [facility] [facility] [place] [address] [address] [facility] [phone] [place], [place] [address] (Wo rk) Social History Tobacco Use Types Packs/Day Years Used Date Smoking Tobacco: Never Assessed Sex Assigned at Date Recorded Not on file documented as of this encounter Nursing Notes Melanie Smith RN - 11/03/2012 7:32 AM CDT Protocol: SHOULDER ROMP-BUPUN-US Affirmative: [1] MODERATE pain (e.g. interferes with [...] mild ROM and f/u with hisPrimary. . Edwina Tomas - 11/03/2012 7:20 AM CDT Patient is set to see PCP Tuesday for Hospital Discharge for his shoulder pain, inquiring if there are any exercises that he could do to help ease the pain until then. documented in this encounter Plan of Treatment Not on filedocumented as of this encounter Visit Diagnoses Not on filedocumented in this encounter Care Teams Graphic Editor Relationship Specialty Start Date End Date Gagandeep Hinojosa MD PCP - General 05/17/12 [facility] [place] [address] Vane Zarate Psychiatrsamantha Psychiatry 03/22/12 documented as of this encounter
--- OUTSIDE RECORDS SUMMARY | 2022-03-14 18:49 | XMS_ITS | Encounter Summary ---
:1970 Author Organization [facility] Address [address] [place] [address] Care Team Providers Name Role Phone Lilian Persaud DO Primary Care Provider Reason for Visit Reason Comments [facility] Enrollment Encounter Details Date Type Department Care Team Description 03/22/2012 Nursing Visit Corby Reynolds Bipolar I d isorder, most recent episode (or current) unspecified; Medicine Type II or unspecified type diabetes mellitus without mention of complication, uncontrolled; [address] S/P angioplasty with stent [place], [place] [id number] Social History Tobacco Use Types Packs/Day Years Used Date Smoking Tobacco: Never Assessed Sex Assigned at Date Recorded Not on file documented as of this encounter Progress Notes Judy Pittman RN - 03/22/2012 4:28 PM CST Care Coordination Visit Pt: Timur Krishnamurthy Referred by: Lilian Persaud DO Reason for referral: [facility] Enrollment and Care Coordination Family/social support: Rustam [...] costs now that he has reached the [facility].Rustam has been checking his BG tid since [...] his diabetes/heart health because of his previous MO and subsequent stent placement. Rustam currently sees a psychiatrist for his medication related to dx Bipolar Disorder. Rustam states that the Depakote and Risperdal both increase his BG. Referrals/recommended resources: I will check into medication resources including the [facility] and[facility]. Patient barrier(s) to learning identified: Finance and Emotional. SHARED PLAN: Rustam agreed to [facility] Enrollment and signed the paperwork. Rustam also completed the verbal disclosure form for [facility] and [facility] Nortis [...] Shopping Guide, Healthy Snacks, and My Food Malt House Operator. I reviewed how managing CHO intake [...] status documented in this encounter Care Teams Dip Painter Relationship Specialty Start Date End Date Lilian Persaud DO PCP - General 12/23/10 05/16/12 [address] [place] [address] Vane Zarate Psychiatrsamantha Psychiatry 03/22/12 documented as of this encounter
--- OUTSIDE RECORDS SUMMARY | 2022-03-14 18:49 | XMS_ITS | Encounter Summary ---
:1970 Author Organization [employer] Address [address] [place] [address] Care Team Providers Name Role Phone Gagandeep Hinojosa MD Primary Care Provider Encounter Details Date Type Department Care Team Description 05/17/2012 Lab Visit [facility] Encounter for long-term [address] (current) use of other [place] [address] medications [phone] Social History Tobacco Use Types Packs/Day Years Used Date Smoking Tobacco: Never Assessed Sex Assigned at Date Recorded Not on file documented as of this encounter Plan of Treatment Not on filedocumented as of this encounter Procedures Procedure Name Priority Date/Time Associated Diagnosis Comme nts CARNITINE FREE AND Routine 05/17/2012 10:35 Encounter for Resu lts for this TOTAL AM TERMITE RENEWAL INSPECTOR long-term (current) procedur e are in use of other the results medications section. COMPLETE BLOOD Routine 05/17/2012 10:35 Encounter for Results for this COUNT-W/DIFF AM TERMITE RENEWAL INSPECTOR long-term (current) procedur e are in use of other the results medications section. DIFFERENTIAL Routine 05/17/2012 10:35 Results for this AM TERMITE RENEWAL INSPECTOR procedure are i n the results section. AMYLASE Routine 05/17/2012 10:35 Encounter for Results fo r this AM TERMITE RENEWAL INSPECTOR long-term (current) procedur e are in use of other the results medications section. VALPROIC ACID Routine 05/17/2012 10:35 Encounter for Results f or this (DEPAKENE) AM TERMITE RENEWAL INSPECTOR long-term (current) procedur e are in use of other the results medications section. LIPASE Routine 05/17/2012 10:35 Encounter for Results fo r this AM TERMITE RENEWAL INSPECTOR long-term (current) procedur e are in use of other the results medications section. AMMONIA Routine 05/17/2012 10:35 Encounter for Results fo r this AM TERMITE RENEWAL INSPECTOR long-term (current) procedur e are in use of other the results medications section. ALT (SGPT) Routine 05/17/2012 10:35 Encounter for Results fo r this AM TERMITE RENEWAL INSPECTOR long-term (current) procedur e are in use of other the results medications section. AST Routine 05/17/2012 10:35 Encounter for Results fo r this AM TERMITE RENEWAL INSPECTOR long-term (current) procedur e are in use of other the results medications section. documented in this encounter Results Differential (05/17/2012 10:35 AM TERMITE RENEWAL INSPECTOR) athologist Signature Absolute 2.7 1.8 - 8.0 [...] / Volume Laterality 05/17/2012 10:35 05/17/2012 AM TERMITE RENEWAL INSPECTOR 10:35 AM TERMITE RENEWAL INSPECTOR Narrative HP CONVERSION - 05/17/2012 11:04 AM TERMITE RENEWAL INSPECT[place] [address] Vane Zarate MD LAB_1 Performing Organization Address City/State/ZIP Code Phon e Number HP CONVERSION CARNITINE FREE AND TOTAL (05/17/2012 10:35 AM TERMITE RENEWAL INSPECTOR) athologist Signature Carnitine, Free 29 25 - 60 HP CONVERSION umol/L Carnitine, 41 34 - 86 HP CONVERSION Total umol/L Carnitine 12 5 - 29 HP CONVERSION Esterified umol/L Carnitine 0.4 0.1 - 1.0 HP CONVERSION Kristen/Free Ratio Specimen Anatomical Collection Method Collection Time Receive d Time (Source) Location / / Volume Laterality 05/17/2012 10:35 05/17/2012 9:11 AM TERMITE RENEWAL INSPECTOR PM TERMITE RENEWAL INSPECTOR Narrative HP CONVERSION - 05/20/2012 8:41 AM TERMITE RENEWAL INSPECTOR Performed at [facility] [address] [place] [address] Vane Zarate MD LAB_1 Performing Organization Address City/State/ZIP Code Phon e Number HP CONVERSION Ammonia (05/17/2012 10:35 AM TERMITE RENEWAL INSPECTOR) athologist Signature Ammonia, Blood 43 0 - 44 HP CONVERSION umol/L Specimen Anatomical Collection Method Collection Time Receive d Time (Source) Location / / Volume Laterality 05/17/2012 10:35 05/17/2012 3:54 AM TERMITE RENEWAL INSPECTOR PM TERMITE RENEWAL INSPECTOR Vane Zarate MD LAB_1 Performing Organization Address City/State/ZIP Code Phon e Number HP CONVERSION Valproic Acid (Depakene) (05/17/2012 10:35 AM TERMITE RENEWAL INSPECTOR) [facility] gist Method Time Signature Date Last Dose HP CONVERSION Valproic Acid Time Last Dose 0930 HP CONVERSION Valproic Acid Valproic 60 50 - 100 HP CONVERSION Acid/Depakene ug/mL (Valp) Specimen Anatomical Collection Method Collection Time Receive d Time (Source) Location / / Volume Laterality 05/17/2012 10:35 05/17/2012 4:01 AM TERMITE RENEWAL INSPECTOR PM TERMITE RENEWAL INSPECTOR Vane Zarate MD LAB_1 Performing Organization Address City/State/ZIP Code Phon e Number HP CONVERSION Lipase (05/17/2012 10:35 AM TERMITE RENEWAL INSPECTOR) athologist [facility] Lipase 69 5 - 70 U/L HP CONVERSION Specimen Anatomical Collection Method Collection Time Receive d Time (Source) Location / / Volume Laterality 05/17/2012 10:35 05/17/2012 3:06 AM TERMITE RENEWAL INSPECTOR PM TERMITE RENEWAL INSPECTOR Narrative HP CONVERSION - 05/17/2012 4:16 PM TERMITE RENEWAL INSPECTOR Performed at [facility], [address] [place], [place] [id number] Vane Zarate MD LAB_1 Performing Organization Address City/State/ZIP Code Phon e Number HP CONVERSION Amylase (05/17/2012 10:35 AM TERMITE RENEWAL INSPECTOR) athologist Signature Amylase Serum 40 25 - 115 HP CONVERSION U/L Specimen Anatomical Collection Method Collection Time Receive d Time (Source) Location / / Volume Laterality 05/17/2012 10:35 05/17/2012 3:06 AM TERMITE RENEWAL INSPECTOR PM TERMITE RENEWAL INSPECTOR Narrative HP CONVERSION - 05/17/2012 4:16 PM TERMITE RENEWAL INSPECTOR Performed at [facility], [address] [place] [address] Vane Zarate MD LAB_1 Performing Organization Address City/[facility] Code Phon e Number HP CONVERSION ALT (SGPT) (05/17/2012 10:35 AM TERMITE RENEWAL INSPECTOR) [facility] Method Time Signature Alanine 38 4 - 55 HP CONVERSION Aminotransferase U/L Specimen Anatomical Collection Method Collection Time Receive d Time (Source) Location / / Volume Laterality 05/17/2012 10:35 05/17/2012 3:06 AM TERMITE RENEWAL INSPECTOR PM TERMITE RENEWAL INSPECTOR Narrative HP CONVERSION - 05/17/2012 4:16 PM TERMITE RENEWAL INSPECTOR Performed at [facility], [address] [place] [address] Vane Zarate MD LAB_1 Performing Organization Address [facility] Code Phon e Number HP CONVERSION AST (05/17/2012 10:35 AM TERMITE RENEWAL INSPECTOR) [facility] Method Time Signature Aspartate 32 0 - 45 HP CONVERSION Aminotransferase U/L Specimen Anatomical Collection Method Collection Time Receive d Time (Source) Location / / Volume Laterality 05/17/2012 10:35 05/17/2012 3:06 AM TERMITE RENEWAL INSPECTOR PM TERMITE RENEWAL INSPECTOR Narrative HP CONVERSION - 05/17/2012 4:16 PM TERMITE RENEWAL INSPECTOR Performed at [facility], [address] [place] [address] Vane Zarate MD LAB_1 Performing Organization Address City/[facility] Code Phon e Number HP CONVERSION Hemogram/Plts/Diff (05/17/2012 10:35 AM TERMITE RENEWAL INSPECTOR) athologist Signature White Blood Cell 6.7 3.8 [...] / Volume Laterality 05/17/2012 10:35 05/17/2012 AM TERMITE RENEWAL INSPECTOR 10:35 AM TERMITE RENEWAL INSPECTOR Narrative HP CONVERSION - 05/17/2012 11:04 AM TERMITE RENEWAL INSPECTOR Performed at [facility], [address] [place] [address] [address] Zarate at [phone], 05/20/2012,09: 43, by DANNY Vane Zarate MD LAB_1 Performing Organization Address City/State/ZIP Code Phon e Number HP CONVERSION documented in this encounter Visit Diagnoses Diagnosis Encounter for long-term (current) use of other medications documented in this encounter Care Teams Drugless Physician Relationship Specialty Start Date End Date Gagandeep Hinojosa MD PCP - General 05/17/[address] [place] [address] [place] [address] Vane Zarate Psychiatrist Psychiatry 03/22/12 documented as of this encounter
--- OUTSIDE RECORDS SUMMARY | 2022-03-14 18:49 | XMS_ITS | Encounter Summary ---
:1970 Author Organization [facility] Address [address], [place] [address] Care Team Providers Name Role Phone Gagandeep Hinojosa MD Primary Care Provider Reason for Visit Reason Comments Care Coordination Encounter Details Date Type Department Care Team Description 02/06/2013 [facility]phone [facility] Judy Pittman RN Care Coordination 14[address] [facility] . 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 Rustam states [...] so he is paying for his insulin [id number]. Rustam states he is managing ok at [...] requesting a return call. Please transfer to [phone]. I received notice that Rustam has been frequently utilizing the ER, with 6 visits in the past year. documented in this encounter Plan of Treatment Not on filedocumented as of this encounter Visit Diagnoses Not on filedocumented in this encounter Care Teams Recreation Leader Relationship Specialty Start Date End Date Gagandeep Hinojosa MD PCP - General 05/17/12 [address] [place] [address] Vane Zarate Psychiatrist Psychiatry 03/22/12 documented as of this encounter
--- OUTSIDE RECORDS SUMMARY | 2022-03-14 18:49 | XMS_ITS | Encounter Summary ---
:1970 Author Organization [facility] Address [address] [place] [address] Care Team Providers Name Role Phone Gagandeep Hinojosa MD Primary Care Provider Reason for Visit Reason Comments Care Coordination Encounter Details Date Type Department Care Team Description 05/02/2012 [facility]phone [facility] Lilian Persaud DO Care Coordination [address] [facility] . [address] [place] [address] [place] [address] [phone] (Wo rk) Social History Tobacco Use Types Packs/Day Years Used Date Smoking Tobacco: Never Assessed Sex Assigned at Date Recorded Not on file documented as of this encounter Nursing Notes Vanessa Pond LPN - 05/23/2012 1:43 PM CST Medical Home Care Conference The medical home multidisciplinary team, including Lilian Persaud, DO convened to discuss Timur Krishnamurthy. The goals of the conference being to improve Timur???s health outcomes, reduce total cost of care and provide a coordinated care experience for him. Timur is a participant in the [employer]. The following parameters were addressed: Care Transitions: Timur is enrolled in health shelter: yes, Candidate? yes Number of active medications in EPIC:Assessment: The problem list in EPIC was updated: yes Health Maintenance was reviewed and updated: yes Timur is failing clinical markers for the following health condition(s): Diabetes The patient is due for: Updated labwork, labs pre-entered yes Plan: It is determined that Timur will benefit from the following: Referral to Epic Professional yes This encounter is routed to the [...] uncontrolled documented in this encounter Care Teams Rag Shredder Relationship Specialty Start Date End Date Gagandeep Hinojosa MD PCP - General 05/17/12 [address] [place] [id number] Vane Zarate Psychiatrist Psychiatry 03/22/12 documented as of this encounter
--- OUTSIDE RECORDS SUMMARY | 2022-03-14 18:49 | XMS_ITS | Encounter Summary ---
:1970 Author Organization [employer] [employer] Address [address] [place] [address] Care Team Providers Name Role Phone Lilian Persaud Primary Care Provider Reason for Visit Reason Comments RESULTS, TEST Encounter Details Date Type Department Care Team Description 02/02/2012 Telephone [facility] Stevenson Greene MD RESULTS, TEST [address] [facility] . [address] [place] [address] [place], [place] [id number] (Wo rk) Social History Tobacco Use Types [...] can get his cholesterol under control. Stevenson Mullen MD - 02/02/2012 3:38 PM CDT His [...] Greene ment to send this to you. Thanks, Sheldon ----- Message ----- From: Stevenson Greene MD Sent: 02/02/2012 2:02 PM To: Sheldon Cavazos, RN Please verify what he is taking. Is he taking gemfibrozil? documented in this encounter Plan of Treatment Not on filedocumented as of this encounter Visit Diagnoses Diagnosis Nonspecific abnormal results of liver fu nction study - Primary documented in this encounter Care Teams Php Web Developer Relationship Specialty Start Date End Date Lilian Persaud DO PCP - General 12/23/10 05/16/12 [address] [place] [address] documented as of this encounter
--- OUTSIDE RECORDS SUMMARY | 2022-03-14 18:49 | XMS_ITS | Encounter Summary ---
:1970 Author Organization [facility] Address [address] [place] [address] Care Team Providers Name Role Phone Gagandeep Hinojosa MD Primary Care Provider Reason for Visit Reason Comments Pharmacy Encounter Details Date Type Department Care Team Description 11/14/2012 Refill [facility] Gagandeep Hinojosa MD Pharmacy 1415 [facility] . 14[address] [facility] [place] [address] [place] [address] [phone] (Wo rk) Social History Tobacco Use Types [...] SYR) 1 mL 30 x 516 Syrg 500 each 3 Sig: Inject 1 [...] 2 days for RX to be approved. [facility] calling where pt is waiting to get [...] requesting rx Pharmacy Name & Phone #: [facility] [address] or City: [facility] Drug Name: 1ml 30 gu 8 mm short needle. Strength: unk Dose/Route/Freq: unk *ECODE documented in this encounter Plan of Treatment Not on filedocumented as of this encounter Visit Diagnoses Not on filedocumented in this encounter Care Teams Steamtable Worker Relationship Specialty Start Date End Date Gagandeep Hinojosa MD PCP - General 05/17/12 [facility] [place] [address] Vane Zarate Psychiatrist Psychiatry 03/22/12 documented as of this encounter
--- OUTSIDE RECORDS SUMMARY | 2022-03-14 18:49 | XMS_ITS | Encounter Summary ---
:1970 Author Organization [facility] Address [address] [place] [address] Care Team Providers Name Role Phone Gagandeep Hinojosa MD Primary Care Provider Encounter Details Date Type Department Care Team Description 10/30/2012 Notes/Orders [facility] Estevan Isaacs MD Cardiology [address] [place] [address] [phone] Social History Tobacco Use Types Packs/Day Years Used Date Smoking Tobacco: Never Assessed Sex Assigned at Date Recorded Not on file documented as of this encounter Plan of Treatment Not on filedocumented as of this encounter Visit Diagnoses Not on filedocumented in this encounter Care Teams Laster Hand Relationship Specialty Start Date End Date Gagandeep Hinojosa MD PCP - General 05/17/12 [facility] [place] [address] Vane Zarate Psychiatrist Psychiatry 03/22/12 documented as of this encounter
--- OUTSIDE RECORDS SUMMARY | 2022-03-14 18:49 | XMS_ITS | Encounter Summary ---
:1970 Author Organization [facility] Address [address] [address] Care Team Providers Name Role Phone Lilian Persaud DO Primary Care Provider Reason for Referral Specialty Diagnoses / Procedures Referred By Contact Refer [place] [address] [place] [address] Referral ID Status Reason Start Date Expiration Date Visits Requ ested Visits Authorized Encounter Details Date Type Department Care Team Description 02/16/2012 Notes/Orders Lilian Camejo, Paolo franco isorders of lipoid metabolism; Medicine DO Coronary atherosclerosis of unspecified type of vessel, akhiok or graft; [address] [address] [facility] Type II or unspecified type diabetes jasen litus without mention of complication, uncontrolled; [address] [place], [place] ASHD (arteriosclerotic heart disease); [place] [address] History of PTCA [phone] Social History Tobacco Use Types Packs/Day Years [...] unspecified type of vessel, akhiok or graft Type II or unspecified type diabetes jasen litus without mention of complication, uncontrolled ASHD (arteriosclerotic heart disease) (H RC) Coronary atherosclerosis of unspecified type of vessel, akhiok or graft History of PTCA Postsurgical percutaneous transluminal c oronary angioplasty status documented in this encounter Care Teams Die Cast Supervisor Relationship Specialty Start Date End Date Lilian Persaud DO PCP - General 12/23/10 05/16/12 [address] [place] [address] documented as of this encounter
--- OUTSIDE RECORDS SUMMARY | 2022-03-14 18:49 | XMS_ITS | Encounter Summary ---
:1970 Author Organization [facility] Address [address] [place] [address] Care Team Providers Name Role Phone Gagandeep Hinojosa MD Primary Care Provider Reason for Visit Reason Comments Rectal Bleeding Encounter Details Date Type Department Care Team Description 09/20/2012 Nurse Triage [facility] Gagandeep Hinojosa, Rectal Bleeding [address] [place] [address] [phone] [place], [place] [address] (Wo rk) Social History Tobacco Use Types Packs/Day Years Used Date Smoking Tobacco: Never Assessed Sex Assigned at Date Recorded Not on file documented as of this encounter Nursing Notes Ruth Ann Nelson RN - 09/20/2012 8:57 PM CDT Protocol: RECTAL [id number] Negative: Taking Coumadin (warfarin), Pradaxa (dabigatran), or known bleeding disorder (e.g., thrombocytopenia) Negative: Severe dizziness (e.g., unable to stand, requires support to walk, feels like passing out now) Negative: [1] Constant abdominal pain AND [2] present > 2 hours Affirmative: Patient sounds very sick or weak to the triager Disposition of Go To ED Now (Or PCP Triage) suggested. Protocol: RECTAL [id number] Affirmative: Large mass protruding out of rectum [...] on filedocumented in this encounter Care Teams Professor Of Forest Planning Relationship Specialty Start Date End Date Gagandeep Hinojosa MD PCP - General 05/17/12 [address] [place] [address] Vane Zarate Psychiatrist Psychiatry 03/22/12 documented as of this encounter
--- OUTSIDE RECORDS SUMMARY | 2022-03-14 18:49 | XMS_ITS | Encounter Summary ---
:1970 Author Organization [facility] Address [address] [address] Care Team Providers Name Role Phone Lilian Persaud DO Primary Care Provider Reason for Visit Reason Comments Diabetes Encounter Details Date Type Department Care Team Description 04/05/2012 [facility]man RN Diabetes 1415 [facility] . [address] [place] [address] [place] [address] [phone] Social History Tobacco Use Types Packs/Day Years Used Date Smoking Tobacco: Never Assessed Sex Assigned at Date Recorded Not on file documented as of this encounter Nursing Notes Lilian Persaud DO - 04/05/2012 4:56 PM CST agree with plan.Looks good! Judy Villegas RN - 04/05/2012 2:27 PM CST RN Art Appraiser - Diabetes Phone Follow-Up Current diabetes medication [...] on filedocumented in this encounter Care Teams Urogynecology Physician Relationship Specialty Start Date End Date Lilian Persaud DO PCP - General 12/23/10 05/16/12 [address] [place] [address] Vane Zarate Psychiatrsamantha Psychiatry 03/22/12 documented as of this encounter
--- OUTSIDE RECORDS SUMMARY | 2022-03-14 18:50 | XMS_ITS | Encounter Summary ---
:1970 Author Organization [facility] Address [address] [place] [address] Care Team Providers Name Role Phone Lilian Persaud DO Primary Care Provider Reason for Visit Reason Comments RESULTS, TEST Encounter Details Date Type Department Care Team Description 06/18/2011 [facility] DO RESULTS, TEST [address] [facility] [address] [place] [address] [place] [address] [phone] (Wo rk) Social History Tobacco Use Types Packs/Day Years Used Date Smoking Tobacco: Never Assessed Sex Assigned at Date Recorded Not on file documented as of this encounter Nursing Notes Jacqueline Herrera LPN - 06/18/2011 1:35 PM CST Pt. informed. SSION LIAISON Lilian Persaud DO - 06/18/2011 12:54 PM CST Increase Lantus from 60 units nightly to 65 units nightly. Increase NovoLog from 20 units t.i.d. with meals to 24 units t.i.d. with meals. Have patient call Tuesday with blood sugar readings. Please check to see the patient is aware of his earlier appointment with Dr. Calhoun with endocrine,who I have discussed his case with. SSION LIAISON Sarah Leon - 06/18/2011 12:45 PM CST calling to report his blood sugars as you had asked him to do. 06/15 am was 285, afternoon 310 and bedtime 355. 06/16 am298,afternoon 320, , 06/17 am302, afternoon 322 and bedtime 370 and this morning it was 264. please call with plan SSION LIAISON Jo Cruz - 06/18/2011 12:35 PM CST Non -Symptom Message from Front Line Primary Care Provider: Lilian Persaud DO Message: Pt requesting his blood sugar test results. SSION LIAISON documented in this encounter Plan of Treatment Not on filedocumented as of this encounter Visit Diagnoses Diagnosis Type II or unspecified type diabetes jasen litus without mention of complication, uncontrolled - Primary documented in this encounter Care Teams Car Salter Relationship Specialty Start Date End Date Lilian Persaud DO PCP - General 12/23/10 05/16/12 [address] [place] [address] documented as of this encounter
--- OUTSIDE RECORDS SUMMARY | 2022-03-14 18:50 | XMS_ITS | Encounter Summary ---
:1970 Author Organization [facility] Address [address] [place] [address] Care Team Providers Name Role Phone Lilian Persaud DO Primary Care Provider Reason for Visit Reason Comments Diabetes Encounter Details Date Type Department Care Team Description 06/29/2011 [facility]phone [facility]aud DO Diabetes 1415 [facility] . [address] [place] [address] [place] [address] [phone] (Wo rk) Social History Tobacco Use Types Packs/Day Years Used Date Smoking Tobacco: Never Assessed Sex Assigned at Date Recorded Not on file documented as of this encounter Nursing Notes Freya Hess - 06/29/2011 1:26 PM CST Notified pt. of notes below. Pt. understood and acknowledged information. And confirmed that he willbe going to his Endocrine appt on 07/05 at 4:30pm B DIRECTOR OCCUPATIONAL THERAPIST Lilian Persaud DO - 06/29/2011 12:57 PM [...] may be a factor with sugar management. B DIRECTOR OCCUPATIONAL THERAPIST Sarah Leon - 06/29/2011 10:28 AM CST [...] you have any new instructions or not B DIRECTOR OCCUPATIONAL THERAPIST Jo Cruz - 06/29/2011 10:21 AM CST Non -Symptom Message from Front Line Primary Care Provider: Lilian Persaud DO Message: Pt requesting to speak with a nurse regarding his diabetes. B DIRECTOR OCCUPATIONAL THERAPIST documented in this encounter Plan of Treatment Not on filedocumented as of this encounter Visit Diagnoses Diagnosis Type II or unspecified type diabetes jasen litus without mention of complication, uncontrolled - Primary documented in this encounter Care Teams Poll Watcher Relationship Specialty Start Date End Date Lilian Persaud DO PCP - General 12/23/10 05/16/12 [address] [place] [place] [address] documented as of this encounter
--- OUTSIDE RECORDS SUMMARY | 2022-03-14 18:50 | XMS_ITS | Encounter Summary ---
:1970 Author Organization [facility] Address [address] [place] [address] Care Team Providers Name Role Phone Lilian Persaud DO Primary Care Provider Reason for Visit Reason Comments Medication Refill Question Encounter Details Date Type Department Care Team Description 09/01/2011 Telephone [facility] Lilian Persaud, Medicat ion Refill Medicine DO Question [address] [facility] [address] [facility] [place] [address] [place] [address] [phone] (Wo rk) Social History Tobacco Use Types [...] on filedocumented in this encounter Care Teams Reflow Operator Relationship Specialty Start Date End Date Lilian Persaud DO PCP - General 12/23/10 05/16/12 [address] [place] [address] documented as of this encounter
--- OUTSIDE RECORDS SUMMARY | 2022-03-14 18:50 | XMS_ITS | Encounter Summary ---
:1970 Author Organization [employer] Address [address] [place] [address] Care Team Providers Name Role Phone Cori, Lilian Luther DO Primary Care Provider Encounter Details Date Type Department Care Team Description 11/10/2011 Hospital Encounter Heart & Vascular Chest pain, unspecified; Center Nuclear Cor athrscl-u ns vessel Cardiology [address] [facility] [place] [address] Social History Tobacco Use Types [...] resul ts unspecified type of section. vessel, nikolai or graft (HRC) documented in this encounter [...] type of vessel, nikolai or graft (HRC) Coronary atherosclerosis of unspecified type of vessel, nikolai or graft documented in this encounter Care Teams Invasive Cardiovascular Technologist Relationship Specialty Start Date End Date Lilian Persaud DO PCP - General 12/23/10 05/16/12 [address] [place] [place] [address] documented as of this encounter
--- OUTSIDE RECORDS SUMMARY | 2022-03-14 18:50 | XMS_ITS | Encounter Summary ---
:1970 Author Organization [facility] Address [address], [place] [address] Care Team Providers Name Role Phone Lilian Persaud Primary Care Provider Reason for Visit Reason Comments Refill Encounter Details Date Type Department Care Team Description 09/13/2011 Refill [facility] Stevenson Greene MD Refill 1415 [facility] . [address] [facility] [place] [address] [place], [place] [address] (Wo rk) Social History Tobacco Use Types [...] hyperlipidemia documented in this encounter Care Teams Quality Intern Relationship Specialty Start Date End Date Lilian Persaud DO PCP - General 12/23/10 05/16/12 [address] [place] [place] [address] documented as of this encounter
--- OUTSIDE RECORDS SUMMARY | 2022-03-14 18:50 | XMS_ITS | Encounter Summary ---
:1970 Author Organization [facility] Address [address] [place] [address] Care Team Providers Name Role Phone Lilian Persaud DO Primary Care Provider Reason for Visit Reason Comments Refill Encounter Details Date Type Department Care Team Description 06/09/2011 Refill [facility] Lilian Persaud, Refill [address] [address] [place] [address] [place] [address] [phone] (Wo rk) Social History Tobacco Use Types [...] cardiology to review refill request on Plavix. EN IRON POURER Lilian Persaud DO - 06/11/2011 9:44 AM CST diabetes med and cholesterol med refilled. Plavix refill needs to go to cardiology. EN IRON POURER Sarah Leon - 06/10/2011 8:[address] Persaud to review refills of metformin, fenofibrate, plavix. plavix is not on RN list of refills. pt recently seen by cardiology. due for labs - orders in computer documented in this encounter Plan of Treatment Not on filedocumented as of this encounter Visit Diagnoses Not on filedocumented in this encounter Care Teams Edger Machine Operator Relationship Specialty Start Date End Date Lilian Persaud DO PCP - General 12/23/10 05/16/12 [address] [place] [address] documented as of this encounter
--- OUTSIDE RECORDS SUMMARY | 2022-03-14 18:50 | XMS_ITS | Encounter Summary ---
:1970 Author Organization [employer] Address [address] [place] [address] Care Team Providers Name Role Phone Lilian Persaud DO Primary Care Provider Reason for Visit Reason Comments RESULTS, TEST Encounter Details Date Type Department Care Team Description 06/08/2011 [facility]phone [facility] Lilian Persaud DO RESULTS, TEST [address] [facility] [address] [place] [address] [place] [address] [phone] (Wo rk) Social History Tobacco Use Types [...] had no changes. Informed of new orders. GER GROCERY Lilian Persaud DO - 06/08/2011 1:02 PM [...] sugar readings as usual on Tuesday morning. GER GROCERY Ysabel Rosales - 06/08/2011 12:[address] Persaud to address. Patient calling back with blood sugar reading for past 3 days. Has been taking Lantus/Novolog insulin as instructed in note 06/04/11. Monday 06/05: fasting 269, pre-dinner 325, bedtime 379 Tuesday 06/06: fasting 345, pre-dinner 410 and bedtime 425. Wednesday 06/07: fasting 286, pre-dinner 432 and bedtime 450 Thursday 06/08: fasting 295. GER GROCERY Andie Adams - 06/08/2011 11:54 AM CST pt calling in his blood sugar test results GER GROCERY documented in this encounter Plan of Treatment Not on filedocumented as of this encounter Visit Diagnoses Diagnosis Type II or unspecified type diabetes jasen litus without mention of complication, uncontrolled - Primary documented in this encounter Care Teams Manager Logistic Relationship Specialty Start Date End Date Lilian Persaud DO PCP - General 12/23/10 05/16/12 [address] [place] [place] [address] documented as of this encounter
--- OUTSIDE RECORDS SUMMARY | 2022-03-14 18:50 | XMS_ITS | Encounter Summary ---
:1970 Author Organization [facility] Address [address] [place] [address] Care Team Providers Name Role Phone Lilian Persaud DO Primary Care Provider Reason for Visit Reason Comments Diabetes WART Fungus Encounter Details Date Type Department Care Team Description 08/11/2011 Office Visit [facility] Lilian Persaud, DM w/o complication type II, uncontrolled (Primary Dx); Medicine DO Dermatophytosis of the body; [address] [address] [address] T Plantar wart; [address] [place], [place] Wart; [place] [address] Other disorders of lipoid metabolism [phone] Social History Tobacco Use Types Packs/Day Years [...] Body Mass Index 32.75 06/07/2011 10:38 AM SUPERVISOR STAGE CARPENTRY documented in this encounter Patient Instructions Patient InstructionsLilian Persaud DO - 08/11/2011 11:15 AM CDT Increase insulin to 72 units of each insulin twice per day documented in this encounter Progress Notes Lilian Persaud DO - 08/12/2011 9:33 PM CDT SUBJECTIVE: Chief Complaint Patient presents with ??? Diabetes follow up ??? Verrucous Vulgaris left wrist & left foot-big toe ??? Fungus on abdomen History of present illness: 41 y.o. male presents for follow up multiple issues. 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
--- OUTSIDE RECORDS SUMMARY | 2022-03-14 18:50 | XMS_ITS | Encounter Summary ---
:1970 Author Organization [employer] Address [address] [place] [address] Care Team Providers Name Role Phone Lilian Persaud DO Primary Care Provider Reason for Visit Reason Comments WART Diabetes Encounter Details Date Type Department Care Team Description 09/01/2011 Office Visit [facility] Lilian Persaud, DM w/o complication type II, uncontrolled (Primary Dx); Medicine DO Plantar wart; [address] [facility] [address] [place] [address] [place], [place] [phone] [address] Social History Tobacco Use Types Packs/Day Years [...] Body Mass Index 33.33 06/07/2011 10:38 AM MACHINE PECAN GATHERER documented in this encounter Progress Notes Lilian [...] is not able to afford endocrinology or development educator appts. Pt feels great, gained 4 [...] DESTRUCT BENIGN SKIN LESIONS UP TO 14 [address]53 Wart - DESTRUCT BENIGN SKIN LESIONS UP TO 14 279[address] Other Orders - nicotine (NICODERM CQ) 21 [...] of warts today. patient advised to use zwkz-djd-zqdfoot wart removal therapies between office visits. patient [...] unspecified documented in this encounter Care Teams Marble Cleaner Relationship Specialty Start Date End Date Lilian Persaud DO PCP - General 12/23/10 05/16/12 [address] [place] [place] [address] documented as of this encounter
--- OUTSIDE RECORDS SUMMARY | 2022-03-14 18:50 | XMS_ITS | Encounter Summary ---
:1970 Author Organization [employer] Address [address] [place] [address] Care Team Providers Name Role Phone Lilian Persaud DO Primary Care Provider Reason for Visit Reason Comments Information Encounter Details Date Type Department Care Team Description 06/25/2011 Telephone [employer] [facility] Lilian Persaud DO Information 1415 [facility] . [address] [place] [address] [place] [address] [phone] (Wo rk) Social History Tobacco Use Types Packs/Day Years Used Date Smoking Tobacco: Never Assessed Sex Assigned at Date Recorded Not on file documented as of this encounter Nursing Notes Jacqueline Herrera LPN - 06/25/2011 3:26 PM CST LM with info. EMAKING SUPERVISOR Lilian Persaud DO - 06/25/2011 1:49 PM CST Looking back on notes, his sugars are finally starting to come down. Have pt increase Lantus to 75 units subcutaneous at hs. Have pt increase Novolog at 28 units tid with meals. Call Tuesday with BS readings. EMAKING SUPERVISOR Tatyana Christian RN - 06/25/2011 11:11 AM CST Spoke with pt. Pt is calling to give Dr. Persaud updated blood glucose readings 06/22 282 am, 330 @4-5 pm, 370 @bedtime. 178 am, 268 @4-5pm and 341 @bedtime, 06/23 224 am, 279 @4-5 pm 331 @bedtime. Today 06/24 231 am. Please call pt back with plan. EMAKING SUPERVISOR Joellen Holm. - 06/25/2011 11:03 AM CST Non -Symptom Message from Front Line Primary Care Provider: Lilian Persaud DO Message: pt calling to give blood sugar test results to nurse. EMAKING SUPERVISOR documented in this encounter Plan of Treatment Not on filedocumented as of this encounter Visit Diagnoses Diagnosis Type II or unspecified type diabetes jasen litus without mention of complication, uncontrolled - Primary documented in this encounter Care Teams Operator Specialist Communications Relationship Specialty Start Date End Date Lilian Persaud DO PCP - General 12/23/10 05/16/12 [address] [place] [address] documented as of this encounter
--- OUTSIDE RECORDS SUMMARY | 2022-03-14 18:50 | XMS_ITS | Encounter Summary ---
:1970 Author Organization [facility] Address [address], [place] [address] Care Team Providers Name Role Phone Lilian Persaud DO Primary Care Provider Reason for Visit Reason Comments Refill Encounter Details Date Type Department Care Team Description 07/30/2011 Refill [facility] Lilian Persaud DO Refill 1415 [facility] . [address] [place] [address] [address] [place] [address] [phone] (Wo rk) Social History Tobacco Use Types [...] on filedocumented in this encounter Care Teams Intensive Care Medicine Specialist Relationship Specialty Start Date End Date Lilian Persaud DO PCP - General 12/23/10 05/16/12 1415 [facility] [place], [place] [address] documented as of this encounter
--- OUTSIDE RECORDS SUMMARY | 2022-03-14 18:50 | XMS_ITS | Encounter Summary ---
:1970 Author Organization [facility] Address [address] [place] [address] Care Team Providers Name Role Phone Lilian Persaud DO Primary Care Provider Reason for Visit Reason Comments Refill Encounter Details Date Type Department Care Team Description 07/27/2011 Refill [facility] 3800 Rosalinda Calhoun cca, MD Refill Endocrinology 3850 [facility] [address] [facility] [place] [address] [place], [place] [address] [phone] Social History Tobacco Use Types Packs/Day Years Used Date Smoking Tobacco: Never Assessed Sex Assigned at Date Recorded Not on file documented as of this encounter Nursing Notes Brooke Moraes, RN - 07/27/2011 9:26 AM CDT Refill done. documented in this encounter Plan of Treatment Not on filedocumented as of this encounter Visit Diagnoses Diagnosis Type II or unspecified type diabetes jasen litus without mention of complication, uncontrolled - Primary documented in this encounter Care Teams International Account Representative Relationship Specialty Start Date End Date Lilian Persaud DO PCP - General 12/23/10 05/16/12 [address] [place] [address] documented as of this encounter
--- OUTSIDE RECORDS SUMMARY | 2022-03-14 18:50 | XMS_ITS | Encounter Summary ---
:1970 Author Organization [facility] Address [address] [place] [address] Care Team Providers Name Role Phone OcriRolando li Homa SAL Primary Care Provider Reason for Visit Reason Comments Coronary Artery Disease (CAD) Encounter Details Date Type Department Care Team Description 09/16/2011 Office Visit [facility] Stevenson Greene, Cor athrscl-uns vessel; [address] Other disorders of lipoid metabolism; [address] DM w/o complication type II, uncontrolle d; [place] [address] [place], [place] Nonspecific abnormal results of liver function study; [phone] S/P angioplasty with stent; [phone] (Wo rk) PR, old; History o f PTCA; Morbid obesity [...] documented in this encounter Patient Instructions Patient InstructionsSchoeEliana scales, RN - 09/16/2011 2:58 PM CDT call with any questions [phone] Keri RN documented in this encounter Progress Notes Stevenson Greene MD - 09/16/2011 3:07 PM CDT Progress Notes signed by Stevenson Greene MD at 09/17/11925 Author: Stevenson Greene MD Service: (none) Author Type: Physician Filed: 09/17/11925 Note Time: 09/16/111506 Status: Signed Research And Development Chemist: Stevenson Greene MD (Physician) NAME: SHARLENE VARNER MR#: [id number] CSN: [id number] AUTHENTICATING CLINICIAN: Stevenson Greene MD CONFIRM #: [id number] LOC: 3205 CLINIC PROGRESS NOTE DATE OF VISIT: 09/16/2011 : 1970 CHIEF COMPLAINT: Followup for coronary artery disease, issues with medications. HISTORY OF PRESENT ILLNESS: Mr. Varner is a 41-year-old male with diabetes mellitus, dyslipidemia, a previous history of smoking, who had been admitted to [facility] for a myocardial infarction in the beginning [...] factor modifications. CC: ROLANDO PERSAUD DO [address] [facility] [place] [address] MKK:BREANNA C: CONFIRM #: [id number] documented in this encounter Plan of Treatment Not on filedocumented as of this encounter Visit Diagnoses Diagnosis Coronary atherosclerosis of unspecified type of vessel, [place] or graft (HRC) Coronary atherosclerosis of unspecified type of vessel, [place] or graft 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 Type II or unspecified type diabetes jasen litus without mention of complication, uncontrolled Nonspecific abnormal results of liver fu nction study S/P angioplasty with stent Postsurgical percutaneous transluminal c oronary angioplasty status PR, old (HRC) Old myocardial infarction History of PTCA Postsurgical percutaneous transluminal c oronary angioplasty status Morbid obesity (HRC) Morbid obesity documented in this encounter Care Teams Cattle Alley Worker Relationship Specialty Start Date End Date Rolando Persaud DO PCP - General 12/23/10 05/16/12 [address] [facility] [address] documented as of this encounter
--- OUTSIDE RECORDS SUMMARY | 2022-03-14 18:50 | XMS_ITS | Encounter Summary ---
:1970 Author Organization [facility] Address [address] [place] [address] Care Team Providers Name Role Phone Lilian Persaud DO Primary Care Provider Reason for Visit Reason Comments Other Encounter Details Date Type Department Care Team Description 06/22/2011 Telephone [facility] Lilian Persaud DO Other 1415 [facility] . [address] [place] [address] [place] [address] [phone] (Wo rk) Social History Tobacco Use Types Packs/Day Years Used Date Smoking Tobacco: Never Assessed Sex Assigned at Date Recorded Not on file documented as of this encounter Nursing Notes Freya Hess - 06/22/2011 1:25 PM CST Informed pt of Dr. Persaud's instructions per below. Pt. acknowledges and understands and stated that he will call Tuesday with his results. OR SQL SERVER DATABASE DEVELOPER Lilian Persaud DO - 06/22/2011 1:00 PM CST Increase Lantus to 70 units subcutaneous nightly and Novolog to 26 units TID with meals. Call Tuesdaywith results. OR SQL SERVER DATABASE DEVELOPER Tatyana Christian RN - 06/22/2011 12:44 PM [...] 06/[address] Persaud to review. OR SQL SERVER DATABASE DEVELOPER Joellen Holm. - 06/22/2011 12:34 PM CST Non -Symptom Message from Front Line Primary Care Provider: Lilian Persaud DO Message: pt calling to give us the results of his diabetic blood sugar test would like to speak to nurse. OR SQL SERVER DATABASE DEVELOPER documented in this encounter Plan of Treatment Not on filedocumented as of this encounter Visit Diagnoses Diagnosis Type II or unspecified type diabetes jasen litus without mention of complication, uncontrolled - Primary documented in this encounter Care Teams Hospital Plan Administrator Relationship Specialty Start Date End Date Lilian Persaud DO PCP - General 12/23/10 05/16/12 [address] [place] [place] [address] documented as of this encounter
--- OUTSIDE RECORDS SUMMARY | 2022-03-14 18:50 | XMS_ITS | Encounter Summary ---
:1970 Author Organization [employer] Address [address] [place] [address] Care Team Providers Name Role Phone Lilian Persaud DO Primary Care Provider Reason for Visit Reason Comments Diabetes WART Encounter Details Date Type Department Care Team Description 10/05/2011 Office Visit [facility] Lilian Persaud, DM w/o complication type II, uncontrolled (Primary Dx); Medicine DO Plantar wart; [address] [address] [facility] [address] Wart; [place] [address] [place], [place] Warts, genital; [phone] [address] Skin lesion Social History Tobacco Use [...] DESTRUCT BENIGN SKIN LESIONS UP TO 14 [address] Wart - DESTRUCT BENIGN SKIN LESIONS UP TO 14 [address] Warts, genital - NC DESTR PENIS LESN,SIMPL,SURG EXCIS Skin lesion Patient will followup with cardiology and do fasting blood work in 3 months. continue present dose of insulins therapies , patient says this is an affordable option for him. Discussed goal of therapy with fasting blood sugar 80-110. Check hemoglobin A1c in one month. Monitor Patient requested retreatment of warts today. Discussed alternatives. patient advised to use wbmn-mrq-fkwuxvi wart removal therapies between office visits. patient [...] tissue documented in this encounter Care Teams Yarn Examiner Skeins Relationship Specialty Start Date End Date Lilian Persaud DO PCP - General 12/23/10 05/16/12 [address] [place] [address] documented as of this encounter
--- OUTSIDE RECORDS SUMMARY | 2022-03-14 18:50 | XMS_ITS | Encounter Summary ---
:1970 Author Organization [facility] Address [address] [place] [address] Care Team Providers Name Role Phone Lilian Persaud DO Primary Care Provider Reason for Visit Reason Comments Chest Pain Encounter Details Date Type Department Care Team Description 08/19/2011 Nurse Triage [facility] Lilian Persaud DO Chest Pain [address] [facility] [address] [place] [address] [place] [address] [phone] (Wo rk) Social History Tobacco Use Types Packs/Day Years Used Date Smoking Tobacco: Never Assessed Sex Assigned at Date Recorded Not on file documented as of this encounter Nursing Notes Diane Hernández RN - 08/19/2011 5:32 PM CDT Protocol: CHEST [id number] Affirmative: [1] Pain lasting > 5 minutes AND [2] age > 30 AND [3] at least one cardiac risk factor (i.e., hypertension, diabetes, obesity, smoker or strong family history of heart disease) Disposition of Call 911 suggested. Pt. calling, history of [place] in 05/06.Pt. developed severe CP and numbness to left arm 1 hr. ago. Tookan ASA is not on Nitro. No sweating, no nausea. documented in this encounter Plan of Treatment Not on filedocumented as of this encounter Visit Diagnoses Not on filedocumented in this encounter Care Teams Government Gauger Relationship Specialty Start Date End Date Lilian Persaud DO PCP - General 12/23/10 05/16/12 1415 [place] [address] documented as of this encounter
--- OUTSIDE RECORDS SUMMARY | 2022-03-14 18:50 | XMS_ITS | Encounter Summary ---
:1970 Author Organization [facility] Address [address] [place] [address] Care Team Providers Name Role Phone Lilian Persaud DO Primary Care Provider Reason for Visit Reason Comments Appt. Needed Encounter Details Date Type Department Care Team Description 06/15/[address] [facility] [address] Rosalinda Calhoun cca, MD Appt. Needed Endocrinology [address] [facility] [address] [place] [address] [place], [place] [id number] [phone] Social History Tobacco Use Types Packs/Day Years [...] on filedocumented in this encounter Care Teams Rod Mill Tender Relationship Specialty Start Date End Date Lilian Persaud DO PCP - General 12/23/10 05/16/12 [facility] [facility] [place] [place] [address] documented as of this encounter
--- OUTSIDE RECORDS SUMMARY | 2022-03-14 18:50 | XMS_ITS | Encounter Summary ---
:1970 Author Organization [facility] Address [address] [place] [address] Care Team Providers Name Role Phone Lilian Persaud DO Primary Care Provider Reason for Visit Reason Comments Diabetes Encounter Details Date Type Department Care Team Description 02/01/2012 Office Visit [facility] Lilian Persaud, Type II or unspecified type diabetes mellitus without mention of complication, uncontrolled (Primary Dx); Medicine DO Other disorders of lipoid metabolism; [address] Hypertriglyceridemia; [place] [address] [place], [place] Nonspecific abnormal results of liver function study; [phone] Need for prophylactic vaccination and in [...] time: documented in this encounter Progress Notes Mateo Persaudistin Homa, - 02/01/2012 1:06 PM CDT Clinic Visit [...] Patient will wait further recommendations with his water quality technician and see how his blood work results [...] Crestor, which he may consider with his water quality technician if cholesterol still not at goal. Patient [...] influenza documented in this encounter Care Teams Director Specialty Relationship Specialty Start Date End Date Lilian Persaud DO PCP - General 12/23/10 05/16/12 3436 [place] [address] documented as of this encounter
--- OUTSIDE RECORDS SUMMARY | 2022-03-14 18:50 | XMS_ITS | Encounter Summary ---
:1970 Author Organization [facility] Address [address], [place] [address] Care Team Providers Name Role Phone CoriLilian li Homa SAL Primary Care Provider Reason for Visit Reason Comments Coronary Artery Disease (CAD) Encounter Details Date Type Department Care Team Description 06/07/2011 Office Visit [facility] Vanessa Ram PA-C Cor athrscl-uns vessel; [address] Acute [place]; Ave. [place], [place] Other disorders of lipoid me tabolism; [place] [address] DM w/o complication type II, uncontrolle d [phone] (Wo rk) Social History Tobacco Use Types Packs/Day Years Used Date Smoking Tobacco: Never Assessed Sex Assigned at Date Recorded Not on file documented as of this encounter Last Filed Vital Signs Vital Sign Reading Time Taken Comments Blood Pressure 112/76 06/07/2011 10:38 AM ELECTRIC BATH ATTENDANT Pulse 84 06/07/2011 10:38 AM ELECTRIC BATH ATTENDANT Temperature - - Respiratory Rate - - Oxygen Saturation - - Inhaled Oxygen Concentration - - Weight 97.3 kg (214 lb 6.4 oz) 06/07/2011 10:38 AM ELECTRIC BATH ATTENDANT Height 176.5 cm (5' 9.5) 06/07/2011 10:38 AM ELECTRIC BATH ATTENDANT Body Mass Index 31.21 06/07/2011 10:38 AM ELECTRIC BATH ATTENDANT documented in this encounter Patient Instructions Patient InstructionsVanessa Ram PA-C - 06/07/2011 11:23 AM CST 1. Increase Lipitor to 80 mg daily (2 current 40 mg tablets, or 1 new 80 mg tablet). 2. Recheck ast, ck, cholesterol labs. Please contact the lab at [phone] to schedule a lab appointment at [facility] after a 12 hour fast, end of June. They will have the lab orders when you get there, so you are not responsible to bring a lab slip. TRIC BATH ATTENDANT documented in this encounter Progress Notes Vanessa Ram PA-C - 06/07/2011 11:51 AM CST Cardiology Clinic Follow up Visit CLINIC PROGRESS NOTE VISIT DATE: 06/07/2011 Patient: Timur Krishnamurthy SUBJECTIVE: This is a pleasant patient present today for a post-hospitalization/post-angiogram visit. The patient was admitted to [facility] on April 29 with chest [...] 250.02 ??? Erectile dysfunction 607.84D ??? Acute IA 410.90BQ ??? ASHD (arteriosclerotic heart disease) 414.00B [...] (176.5 cm) Wt 214 lb 6.4 oz (52227 g) BMI 31.21 kg/m2 GENERAL: The patient [...] his cravings decrease. 5. Follow-up with a customer business manager in 6 to 8 weeks to review [...] of modifying cardiac risk factors. CORNELIUS Wong [facility] documented in this encounter Plan of Treatment Not on filedocumented as of this encounter Visit Diagnoses Diagnosis Coronary atherosclerosis of unspecified type of vessel, lac vieux or graft (HRC) Coronary atherosclerosis of unspecified type of vessel, lac vieux or graft Acute IA (HRC) Acute myocardial infarction, unspecified site, episode of care unspecified 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 Type II or unspecified type diabetes jasen litus without mention of complication, uncontrolled documented in this encounter Care Teams Manager Transition Relationship Specialty Start Date End Date Lilian Persaud DO PCP - General 12/23/10 05/16/12 1415 [place] [address] documented as of this encounter
--- OUTSIDE RECORDS SUMMARY | 2022-03-14 18:50 | XMS_ITS | Encounter Summary ---
:1970 Author Organization [facility] Address [address] [place] [address] Care Team Providers Name Role Phone Lilian Persaud DO Primary Care Provider Reason for Visit Reason Comments Patient Calling Back Encounter Details Date Type Department Care Team Description 06/11/2011 [facility]aud DO Patient Calling Back [facility] [address] [place] [address] 14[address] [place] [address] [place] [address] [phone] Social History Tobacco Use Types Packs/Day Years Used Date Smoking Tobacco: Never Assessed Sex Assigned at Date Recorded Not on file documented as of this encounter Nursing Notes Jacqueline Vizcaino - 06/15/2011 2:35 PM CST pt informed of the dose changes and will f/u on Tuesday with his readings-pt understood changes and had no further questions. TRONIC EQUIPMENT MAINT TECH Lilian Persaud DO - 06/15/2011 2:21 PM CST I was able to speak with hog confinement system manager quality process engineer who rec increase Lantus from 50 to 60 units subcutaneous q HS. Also, increase Novolog from 12 units to 20 units TID with meals. Have him call Tuesday am with BS readings. Pt will get a call to see endocrine early than his July appointment. TRONIC EQUIPMENT MAINT TECH Marci Oliveira RN - 06/15/2011 10:52 AM CST Pt calling back with update on BS and medication dosing; pt has been taking Novolog 12 U TID and Lantus 50U at HS. 06/13: BS at 0700 304, 5p 320, and 10p 393, 06/14: BS 309,321,360 (same testing times) and today 06/15 thus far BS was 285. to PCP to review and advise TRONIC EQUIPMENT MAINT TECH Andie Adams - 06/15/2011 10:46 AM CST [...] Novolog if low BS from newLantus pen. TRONIC EQUIPMENT MAINT TECH Maximilian Ag - 06/11/2011 11:29 AM CST Patient calling to report recent blood sugars Has been taking Lantus and Novonlog and Metformin Numbers are on 06/08 AM 295 PM 315 Hs 340 On 2 AM 295 PM 393 HS 410 On 06/10 AM 300 PM 320 HS 392 On 06/11 AM 315 PLease call with plan of care Call [phone] Maximilian Ag - 06/11/2011 11:26 AM CST TRONIC EQUIPMENT MAINT TECH Lori Winkler - 06/11/2011 11:21 AM CST Non -Symptom Message from Front Line Primary Care Provider: Lilian Persaud DO Message: calling in numbers from another blood test TRONIC EQUIPMENT MAINT TECH documented in this encounter Plan of Treatment Not on filedocumented as of this encounter Visit Diagnoses Diagnosis Type II or unspecified type diabetes jasen litus without mention of complication, uncontrolled - Primary documented in this encounter Care Teams Steam Shovel Oiler Relationship Specialty Start Date End Date Lilian Persaud DO PCP - General 12/23/10 05/16/12 14[address] [place] [place] [address] documented as of this encounter
--- OUTSIDE RECORDS SUMMARY | 2022-03-14 18:50 | XMS_ITS | Encounter Summary ---
:1970 Author Organization [facility] Address [address] [place] [address] Care Team Providers Name Role Phone Lilian Persaud DO Primary Care Provider Reason for Visit Reason Comments Diabetes WART Encounter Details Date Type Department Care Team Description 11/02/2011 Office Visit [facility] Lilian Persaud, DM w/o complication type II, uncontrolled (Primary Dx); Medicine DO Plantar wart; [address] [place] [address] [place], [place] [phone] [address] Social History Tobacco Use Types Packs/Day Years [...] is still remaining. He has been using aunv-ijy-jpzatrz salicylic acid treatments. Patient tolerated procedure last [...] DESTRUCT BENIGN SKIN LESIONS UP TO 14 [address]30 Wart - DESTRUCT BENIGN SKIN LESIONS UP TO 14 [id number] Plan: 1. Liquid nitrogen was applied to [...] unspecified documented in this encounter Care Teams Scrub Nurse Relationship Specialty Start Date End Date Lilian Persaud DO PCP - General 12/23/10 05/16/12 [address] [address] documented as of this encounter
--- OUTSIDE RECORDS SUMMARY | 2022-03-14 18:50 | XMS_ITS | Encounter Summary ---
:1970 Author Organization [facility] Address [address] [place] [address] Care Team Providers Name Role Phone Lilian Persaud DO Primary Care Provider Reason for Visit Reason Comments Information Encounter Details Date Type Department Care Team Description 08/06/2011 [facility]ian [facility]aud DO Information [address] [facility] . [address] [place] [address] [place] [address] [phone] (Wo rk) Social History Tobacco Use Types [...] he set up an appointment with an Harbor Master () for follow up on his diabetes [...] and dinner Please encourage him to see superintendent pipelines for follow up and med management. Call [...] documented in this encounter Care Teams Metal Sprayer Machined Parts Relationship Specialty Start Date End Date Lilian Persaud DO PCP - General 12/23/10 05/16/12 1415 [place] [place] [address] documented as of this encounter
--- OUTSIDE RECORDS SUMMARY | 2022-03-14 18:50 | XMS_ITS | Encounter Summary ---
:1970 Author Organization [facility] Address [address] [place] [address] Care Team Providers Name Role Phone Rolando Lopez DO Primary Care Provider Reason for Referral Specialty Diagnoses / Procedures Referred By Contact [place] [address] [place] [address] Referral ID Status Reason Start Date Expiration Date Visits Requ ested Visits Authorized Reason for Visit Reason Comments Diabetes Encounter Details Date Type Department Care Team Description 07/06/2011 Initial Consult [facility] 38[address] Ceci Calhoun DM w/o complication Endocrinology MD Simi type II, uncontrolled [address] [place] [address] (Primary Dx) [facility] [place] [phone] Social History Tobacco Use Types Packs/Day Years [...] Body Mass Index 32.11 06/07/2011 10:38 AM JEWEL HOLE GAUGER documented in this encounter Progress Notes Ceci Calhoun MD - 07/06/2011 6:00 PM CDT Progress Notes signed by Ceci Calhoun MD at 07/23/11 1928 Author: Ceci Calhoun MD Service: (none) Author Type: Physician Filed: 07/23/11 2421 Note Time: 07/06/11 1800 Status: Signed Blunger Machine Operator: Ceci Calhoun MD (Physician) NAME: SHARLENE KRISHNAMURTHY MR#: [id number] CSN: [id number] AUTHENTICATING CLINICIAN: Ceci Calhoun MD CONFIRM #: [id number] LOC: 432 CLINIC PROGRESS NOTE DATE OF [...] per 50 above 150. CC: ROLANDO LOPEZ, DO [address] [place] [address] RMM:MEDQ C: CONFIRM #: [id number] documented in this encounter Plan of Treatment [...] HEMOGLOBIN (HGB A1C) (07/06/2011 4:50 PM CDT) Patholo gist Method Time Signature Hemoglobin A1C, 10.6 (A) [...] Primary documented in this encounter Care Teams Lockstitch Sleeve Setter Relationship Specialty Start Date End Date Rolando Lopez DO PCP - General 12/23/10 05/16/12 [address] [address] documented as of this encounter
--- OUTSIDE RECORDS SUMMARY | 2022-03-14 18:50 | XMS_ITS | Encounter Summary ---
:1970 Author Organization [employer] [employer] Address [address] [place] [address] Care Team Providers Name Role Phone CoriLilian li Homa SAL Primary Care Provider Encounter Details Date Type Department Care Team Description 02/01/2012 Lab Visit [facility] Coronary atherosclerosis of unspecified type of vessel, la posta or graft; [address] Other disorders of lipoid me tabolism; [place] [address] Nonspecific abnormal results of liver function study; [phone] S/P angioplasty with stent Social History Tobacco [...] he is taking. Is he taking gemfibrozil? E SETTER Miscellaneous - 06/04/2016 1:59 PM CSTNotes Recorded by Stevenson Greene MD on 02/02/2012 at 2:02 PMPlease verify what he is taking. Is he taking gemfibrozil? E SETTER Miscellaneous - 06/04/2016 1:59 PM CSTNotes Recorded by Stevenson Greene MD on 02/02/2012 at 2:02 PMPlease verify what he is taking. Is he taking gemfibrozil? E SETTER Miscellaneous - 06/04/2016 1:59 PM CSTNotes Recorded by Stevenson Greene MD on 02/02/2012 at 2:02 PMPlease verify what he is taking. Is he taking gemfibrozil? E SETTER documented in this encounter Plan of Treatment Not on filedocumented as of this encounter Procedures Procedure Name Priority Date/Time Associated Diagnosis Comme nts LIPID PANEL AND Routine 02/01/2012 12:00 Coronary Results for this DIRECT LDL(IF PM CDT atherosclerosis of procedur e are in NEEDED) unspecified type of the resu lts vessel, la posta or graft sect ion. (HRC) Other disorders of lipoid metabolis m (HRC) Nonspecific abnormal results of liver function study S/P angioplasty with stent ALT (SGPT) Routine 02/01/2012 12:00 Coronary Results for this PM CDT atherosclerosis of procedure are in unspecified type of the resu lts vessel, la posta or graft sect ion. (HRC) Other disorders of lipoid metabolis m (HRC) Nonspecific abnormal results of liver function study S/P angioplasty with stent AST Routine 02/01/2012 12:00 Coronary Results for this PM CDT atherosclerosis of procedure are in unspecified type of the resu lts vessel, la posta or graft sect ion. (HRC) Other disorders of lipoid metabolis m (HRC) Nonspecific abnormal results of liver function study S/P angioplasty with stent CK, TOTAL Routine 02/01/2012 12:00 Coronary Results for this PM CDT atherosclerosis of procedure are in unspecified type of the resu lts vessel, la posta or graft sect ion. (HRC) Other disorders [...] - 02/01/2012 4:14 PM CDT Performed at [facility], [address] [place] [address] Transcriptions 06/04/2016 1:59 PM CSTNotes Recorded by Stevenson Greene MD on 02/02/2012 at 2:02 PMPlease verify what he is taking. Is he taking gemfibrozil? Stevenson Greene MD LAB_1 Performing Organization Address City/[facility] Code Phon e Number HP CONVERSION (ABNORMAL) ALT (SGPT) (02/01/2012 12:00 PM CDT) [facility] Method Time Signature Alanine 73 (H) 4 - 55 HP CONVERSION Aminotransferase U/L Specimen Anatomical Collection Method Collection Time Receive d Time (Source) Location / / Volume Laterality 02/01/2012 12:00 02/01/2012 3:05 PM CDT PM CDT Narrative HP CONVERSION - 02/01/2012 4:14 PM CDT Performed at [facility], [address] [place] [address] Transcriptions 06/04/2016 1:59 PM CSTNotes Recorded by Stevenson Greene MD on 02/02/2012 at 2:02 PMPlease verify what he is taking. Is he taking gemfibrozil? Stevenson Greene MD LAB_1 Performing Organization Address City/State/ZIP Code Phon e Number HP CONVERSION (ABNORMAL) AST (02/01/2012 12:00 PM CDT) [facility] Method Time Signature Aspartate 55 (H) 0 - 45 HP CONVERSION Aminotransferase U/L Specimen Anatomical Collection Method Collection Time Receive d Time (Source) Location / / Volume Laterality 02/01/2012 12:00 02/01/2012 3:05 PM CDT PM CDT Narrative HP CONVERSION - 02/01/2012 4:14 PM CDT Performed at [facility], [address] [place] [address] Transcriptions 06/04/2016 1:59 PM CSTNotes Recorded by Stevenson Greene MD on 02/02/2012 at 2:02 PMPlease verify what he is taking. Is he taking gemfibrozil? Stevenson Greene MD LAB_1 Performing Organization Address [facility] Phon e Number HP CONVERSION (ABNORMAL) Lipid Panel and Direct LDL(If Needed) (02/01/2012 12:00 PM CDT) [facility] Method Time Signature Cholesterol 203 (H) [...] - 02/01/2012 4:14 PM CDT Performed at [facility], [address] [place] [address] Transcriptions 06/04/2016 1:59 PM CSTNotes Recorded by Stevenson Greene MD on 02/02/2012 at 2:02 PMPlease verify what he is taking. Is he taking gemfibrozil? Stevenson Greene MD LAB_1 Performing Organization Address [facility] Phon e Number HP CONVERSION documented in this encounter Visit Diagnoses Diagnosis Coronary atherosclerosis of unspecified type of vessel, la posta or graft (HRC) Coronary atherosclerosis of unspecified type of vessel, la posta or graft 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 Nonspecific abnormal results of liver fu nction study S/P angioplasty with stent Postsurgical percutaneous transluminal c oronary angioplasty status documented in this encounter Care Teams Insurance Loss Adjuster Relationship Specialty Start Date End Date Lilian ePrsaud DO PCP - General 12/23/10 05/16/12 1925 [place] [address] documented as of this encounter
--- OUTSIDE RECORDS SUMMARY | 2022-03-14 18:50 | XMS_ITS | Encounter Summary ---
:1970 Author Organization [employer] Address [address] [place] [address] Care Team Providers Name Role Phone Lilian Persaud DO Primary Care Provider Reason for Visit Reason Comments Medication Problems Encounter Details Date Type Department Care Team Description 07/27/2011 Refill [facility] Lilian Persaud DO Medication Problems [address] [address] [facility] [place] [address] [place] [address] [phone] (Wo rk) Social History Tobacco Use Types [...] regarding insulin. Its $25 per vial at [facility] there are 1000 units in each vial. Please have Dr Persaud call back as to what is decided regarding his insulin. IT Lilian Persaud DO - 07/28/2011 3:05 PM CDT I spoke with nurse educator who rec trying [facility] for generic low cost insulin. She also rec writing for a larger vial of insulin quantity to only have 1 co-pay. I relayed this info to the pt, he doesn't have co-pays at this point, he pays entirely for his meds.He was advised to call [facility] and check in to cheapest insulin available and I will rx new insulin. I did look online to see if I could get prices, but not available. Pt will call back with any questions. I will await his call for insulin info and then do new rx. Lilian Castillo DO - 07/28/2011 11:09 AM CDT spoke with member of [facility] education, awaiting call back from nurse to provide info for pt. She thinks [facility] has free assistance. Lilian Castillo, - 07/27/2011 12:42 PM CDT Spoke with [...] Primary documented in this encounter Care Teams Geothermal Operations Manager Relationship Specialty Start Date End Date Lilian Persaud DO PCP - General 12/23/10 05/16/12 [address] [place] [address] documented as of this encounter
--- OUTSIDE RECORDS SUMMARY | 2022-03-14 18:50 | XMS_ITS | Encounter Summary ---
:1970 Author Organization [facility] Address [address], [place] [address] Care Team Providers Name Role Phone Rolando Lopez DO Primary Care Provider Reason for Visit Reason Comments Pharmacy Encounter Details Date Type Department Care Team Description [facility] Pharmacy [address] [facility] . [address] [place] [address] [place] [address] [phone] (Wo rk) Social History Tobacco Use Types Packs/Day Years Used Date Smoking Tobacco: Never Assessed Sex Assigned at Date Recorded Not on file documented as of this encounter Nursing Notes Vicky Leyva RN - 07/13/2011 4:10 PM CDT Prescription Refills Approved Prescriptions Disp Refills ??? insulin glargine (LANTUS SOLOSTAR) 100 unit/mL (3 mL) InPn 15 mL 11 Sig: Inject 90-100 Units subcutaneously nightly. 250.02 take at 10 p.m. daily Indications: DIABETESMELLITUS Authorizing Provider: ROLANDO LOPEZ Ordering User: VICKY LEYVA Resent to [employer] as ordered. IT Joellen Holm - 07/13/2011 [...] Primary documented in this encounter Care Teams Oil Sales And Service Rep Relationship Specialty Start Date End Date Rolando Lopez DO PCP - General 12/23/10 05/16/12 [address] [place] [address] documented as of this encounter
--- OUTSIDE RECORDS SUMMARY | 2022-03-14 18:50 | XMS_ITS | Encounter Summary ---
:1970 Author Organization [facility] Address [address], [place] [address] Care Team Providers Name Role Phone Lilian Persaud DO Primary Care Provider Encounter Details Date Type Department Care Team Description 06/11/2011 Notes/Orders [facility] Eliana Kumar, [address] . RN [place] [address] Social History Tobacco Use Types Packs/Day Years Used Date Smoking Tobacco: Never Assessed Sex Assigned at Date Recorded Not on file documented as of this encounter Plan of Treatment Not on filedocumented as of this encounter Visit Diagnoses Not on filedocumented in this encounter Care Teams Truck Hopper Relationship Specialty Start Date End Date Lilian Persaud DO PCP - General 12/23/10 05/16/12 [address] [place] [address] documented as of this encounter
--- OUTSIDE RECORDS SUMMARY | 2022-03-14 18:50 | XMS_ITS | Encounter Summary ---
:1970 Author Organization [facility] Address [address] [place] [address] Care Team Providers Name Role Phone Lilian Persaud DO Primary Care Provider Reason for Visit Reason Comments Medication Refill Question Encounter Details Date Type Department Care Team Description 08/31/2011 Telephone [facility] Lilian Persaud, Medicat ion Refill Medicine DO Question [address] [facility] [address] [place] [address] [place] [address] [phone] (Wo rk) Social History Tobacco Use Types Packs/Day Years Used Date Smoking Tobacco: Never Assessed Sex Assigned at Date Recorded Not on file documented as of this encounter Nursing Notes Freya Hess - 08/31/2011 3:57 PM CDT Left for [facility] and gave diagnosis code of 250.02 for pt's rx. Also left PN main# 1956 to call back if they have any questions. Ok to give out dx code if they call again, or ok to transfer to my extension [id number]. Lilian Persaud DO - 08/31/2011 3:48 PM CDT diagnosis code 250.02 Maximilian Ag - 08/31/2011 3:17 PM CDT Patient calling back Uses insulin by syringe- NO PUMP Need diagnosis code to [facility] Has enough till mail order arrives Marci Oliveira, RN - 08/31/2011 2:23 PM CDT Left general message at number above to return call, advised to call [phone], also called and LMTCB for the pt [...] filedocumented in this encounter Care Teams Assistant Brand Manager Relationship Specialty Start Date End Date Lilian Persaud DO PCP - General 12/23/10 05/16/12 1415 [place] [address] documented as of this encounter
--- OUTSIDE RECORDS SUMMARY | 2022-03-14 18:50 | XMS_ITS | Encounter Summary ---
:1970 Author Organization [employer] Address [address] [place] [address] Care Team Providers Name Role Phone Lilian Persaud DO Primary Care Provider Reason for Visit Reason Comments RESULTS, TEST Encounter Details Date Type Department Care Team Description 06/08/2011 Notes/Orders [facility] Medicine DO [place] (Primary Dx) [address] [place] [address] [facility] [place] [address] [place], [place] [phone] Social History Tobacco Use Types Packs/Day Years [...] 06/11/2011 9:38 AM CST Noted changes. Thanks! JOINER Eliana Kumar RN - 06/10/2011 10:28 AM CST Pt. informed and med list updated and new RX faxed. JOINER Vanessa Ram PA-C - 06/09/2011 11:42 PM [...] we discussed at his recent visit. Thanks! JOINER Eliana Kumar RN - 06/09/2011 11:44 AM CST I reviewed medications with Timur and he is not taking the Gemfibrozil . His fish oil is actuallya rx he said and is taking as listed on the med list fish oil 340-1,000 and he takes 2 a day. Did you want him to increase that rx? Thanks JOINER documented in this encounter Plan of Treatment Not on filedocumented as of this encounter Visit Diagnoses Diagnosis Hypertriglyceridemia (HRC) - Primary Pure hyperglyceridemia documented in this encounter Care Teams Nutrient Management Specialist Relationship Specialty Start Date End Date Lilian Persaud DO PCP - General 12/23/10 05/16/12 [address] [place] [address] documented as of this encounter
--- OUTSIDE RECORDS SUMMARY | 2022-03-14 18:50 | XMS_ITS | Encounter Summary ---
:1970 Author Organization [facility] Address [address] [place] [address] Care Team Providers Name Role Phone Lilian Persaud DO Primary Care Provider Reason for Visit Reason Comments Refill Encounter Details Date Type Department Care Team Description 08/13/2011 Refill [facility] FAM[facility] Tanesha Amaya MD Refill [address] [place] [address] [phone] [facility] [address] (Wo rk) Social History Tobacco Use Types Packs/Day Years Used Date Smoking Tobacco: Never Assessed Sex Assigned at Date Recorded Not on file documented as of this encounter Nursing Notes Ysabel Rosales - 08/16/2011 2:13 PM CDT Renewed medication per medication refill protocol. aspirin 81 mg documented in this encounter Plan of Treatment Not on filedocumented as of this encounter Visit Diagnoses Not on filedocumented in this encounter Care Teams Metal Wire Technician Relationship Specialty Start Date End Date Lilian Persaud DO PCP - General 12/23/10 05/16/12 [address] [place] [address] documented as of this encounter
--- OUTSIDE RECORDS SUMMARY | 2022-03-14 18:50 | XMS_ITS | Encounter Summary ---
:1970 Author Organization [facility] Address [address] [place] [address] Care Team Providers Name Role Phone Cori Lilian Luther DO Primary Care Provider Encounter Details Date Type Department Care Team Description 02/01/2012 Lab Visit [facility] Laboratory Type II or unspecified type 1415 [facility] . diabetes mellitus without [place] [address] mention of complication, uncontrolled Social History Tobacco [...] (ABNORMAL) Microalb/Creat Ratio (02/01/2012 12:05 PM CDT) Patholo gist Method Time Signature Microalbumin 93.0 mg/L [...] 02/01/2012 3:27 AM CDT PM CDT Lilian Persaud DO LAB_1 Performing Organization Address [facility] Phon e Number HP CONVERSION documented in this encounter Visit Diagnoses Diagnosis Type II or unspecified type diabetes jasen litus without mention of complication, uncontrolled documented in this encounter Care Teams Analytical Lab Technician Relationship Specialty Start Date End Date Lilian Persaud DO PCP - General 12/23/10 05/16/12 [address] [place] [address] documented as of this encounter
--- OUTSIDE RECORDS SUMMARY | 2022-03-14 18:50 | XMS_ITS | Encounter Summary ---
:1970 Author Organization [facility] Address [address] [place] [address] Care Team Providers Name Role Phone Lilian Persaud DO Primary Care Provider Reason for Visit Reason Comments Other Encounter Details Date Type Department Care Team Description 09/02/2011 [facility], Other [address] [facility] [address] [place] [address] [place] [address] [phone] (Wo rk) Social History Tobacco Use Types [...] on filedocumented in this encounter Care Teams Geophysical Laboratory Supervisor Relationship Specialty Start Date End Date Lilian Persaud DO PCP - General 12/23/10 05/16/12 [address] [place] [address] documented as of this encounter
--- OUTSIDE RECORDS SUMMARY | 2022-03-14 18:50 | XMS_ITS | Encounter Summary ---
:1970 Author Organization [facility] Address [address], [place] [address] Care Team Providers Name Role Phone Lilian Persaud DO Primary Care Provider Reason for Visit Reason Comments Appt. Needed Encounter Details Date Type Department Care Team Description 11/16/[address] [facility] Lilian Persaud DO Appt. Needed 1415 [facility] . [address] [place] [address] [place] [address] [phone] (Wo rk) Social History Tobacco Use Types [...] filedocumented in this encounter Care Teams Industrial Tech Instructor Relationship Specialty Start Date End Date Lilian Persaud DO PCP - General 12/23/10 05/16/12 14[address] [place] [address] documented as of this encounter
--- OUTSIDE RECORDS SUMMARY | 2022-03-14 18:50 | XMS_ITS | Encounter Summary ---
:1970 [address] [facility] Address [address] [place] [address] Care Team Providers Name Role Phone Lilian Persaud DO Primary Care Provider Reason for Visit Reason Comments Refill Encounter Details Date Type Department Care Team Description 09/14/2011 Refill [facility] Lilian Persaud DO Refill [address] [address] [place] [address] [place] [address] [phone] (Wo rk) Social History Tobacco Use Types [...] on filedocumented in this encounter Care Teams Detasseling Crew Supervisor Relationship Specialty Start Date End Date Lilian Persaud DO PCP - General 12/23/10 05/16/12 [address] [place] [address] documented as of this encounter
--- OUTSIDE RECORDS SUMMARY | 2022-03-14 18:50 | XMS_ITS | Encounter Summary ---
:1970 Author Organization [facility] Address [address] [place] [address] Care Team Providers Name Role Phone Lilian Persaud DO Primary Care Provider Reason for Visit Reason Comments UPDATE Encounter Details Date Type Department Care Team Description 08/27/2011 Telephone [facility] Lilian Persaud DO UPDATE 1415 [facility] . [address] [place] [address] [place] [address] [phone] (Wo rk) Social History Tobacco Use Types [...] discuss his blood sugar readings as well. ilian Ross DO - 08/31/2011 12:07 PM CDT Please have pt increase both insulins to 76 units BID. I will see him tomorrow as also discuss with him. I updated his med list Sarah Leon - 08/27/2011 10:[address] Persaud [...] 114, 133, 154 08/25: 102, 123, 141. 5: 124. says he is feeling well. please call 08/30 to let him know if you have any further instructions or not Lizette Blas - 08/27/2011 10:25 AM CDT Patient is calling Dr. Persaud's nurse to give glucose results from this past week. Timur Leyva (Self) [phone] (H) y-vm documented in this encounter Plan of Treatment Not on filedocumented as of this encounter Visit Diagnoses Diagnosis Type II or unspecified type diabetes jasen litus without mention of complication, uncontrolled - Primary documented in this encounter Care Teams Residential Life Director Relationship Specialty Start Date End Date Lilian Persaud DO PCP - General 12/23/10 05/16/12 [address] [place] [address] documented as of this encounter
--- OUTSIDE RECORDS SUMMARY | 2022-03-14 18:50 | XMS_ITS | Encounter Summary ---
:1970 Author Organization [facility] Address [address], [place] [address] Care Team Providers Name Role Phone Lilian Persaud DO Primary Care Provider Reason for Visit Reason Comments Appt. Needed Encounter Details Date Type Department Care Team Description 01/25/2012 [facility]aud DO Appt. Needed 1415 [facility] . [address] [place] [address] [place] [address] [phone] (Wo rk) Social History Tobacco Use Types [...] on filedocumented in this encounter Care Teams Parish Nurse Relationship Specialty Start Date End Date Lilian Persaud DO PCP - General 12/23/10 05/16/12 1418 [place] [address] documented as of this encounter
--- OUTSIDE RECORDS SUMMARY | 2022-03-14 18:50 | XMS_ITS | Encounter Summary ---
:1970 Author Organization [facility] Address [address] [place] [address] Care Team Providers Name Role Phone Lilian Persaud DO Primary Care Provider Reason for Visit Reason Comments RESULTS, TEST Encounter Details Date Type Department Care Team Description 11/17/2011 [facility] DO RESULTS, TEST [facility] [facility] [address] [place] [address] [place] [address] [phone] (Wo rk) Social History Tobacco Use Types Packs/Day Years Used Date Smoking Tobacco: Never Assessed Sex Assigned at Date Recorded Not on file documented as of this encounter Nursing Notes Freya Hess - 11/19/2011 11:24 AM CDT Left vm for pt informing of note below. Routing note to pt's intake clinician Brittany Main MD who ordered test. Lilian Persaud DO - 11/19/2011 9:36 AM CDT I believe intake clinician ordered this test, as I did not order this test. Please let pt know that it appears to be normal but he should also speak to his intake clinician about results. Shefali Silva - 11/18/2011 9:48 AM CDT Procedure done at [facility]. NUCLEAR MYOCARDIAL PERFUSION STUDY REPORT, 11/10/2011 INDICATION: Chest pain. 41-year-old man with known coronary artery disease. He has a history of a prior [id number]-[id number] myocardial infarction. He is status post PCI [...] test When and where was test done? [facility] 11/10/11 Who ordered the test? Lilian Persaud, documented in this encounter Plan of Treatment Not on filedocumented as of this encounter Visit Diagnoses Not on filedocumented in this encounter Care Teams Mat Repairer Relationship Specialty Start Date End Date Lilian Persaud DO PCP - General 12/23/10 05/16/12 [address] [place] [address] documented as of this encounter
--- OUTSIDE RECORDS SUMMARY | 2022-03-14 18:51 | XMS_ITS | Encounter Summary ---
:1970 Author Organization [facility] Address [address], [place] [address] Care Team Providers Name Role Phone Lilian Persaud DO Primary Care Provider Reason for Visit Reason Comments Appt. Work In Request Encounter Details Date Type Department Care Team Description 05/20/2011 Telephone [facility] Lilian Persaud, Appt. W ork In Request Medicine DO 1415 [facility] . [address] [place] [address] [place] [address] [phone] (Wo rk) Social History Tobacco Use Types [...] forward message forwarded to [facility] nursing venkat. STRIAL ENGINEERING DIRECTOR Lilian Persaud DO - 05/21/2011 8:51 AM CST Unable to do apwi today, please schedule for next week. Pt has seen [facility], please forward note and have pt discuss changing insulin with them in meantime. STRIAL ENGINEERING DIRECTOR Maximilian Ag - 05/20/2011 8:17 AM CST Patient calling requesting work-in to discuss diabetic medications Asymptomatic but blood sugars have been running 250-300 while on Novolog Also taking Metformin XR Afebrile No vomiting ,dizziness,blurred vision Declined appt offered today Aware clincian will address 05/21 Call [phone] STRIAL ENGINEERING DIRECTOR Wendy Montgomery - 05/20/2011 7:24 AM CST Front Line Sx Call Primary Tin Can Feeder: Lilian Persaud DO Reason for call/symptom: Pt is requesting to be worked in amarilis. Tuesday05/21/11 with Noni Persaud re: Bloodsugar concerns and cholesterol med ck . Would like to discuss adjusting his diab meds . Pt just requested also to make a future appt . Pls call pt back STRIAL ENGINEERING DIRECTOR documented in this encounter Plan of Treatment Not on filedocumented as of this encounter Visit Diagnoses Not on filedocumented in this encounter Care Teams Governor Assembler Hydraulic Relationship Specialty Start Date End Date Lilian Persaud DO PCP - General 12/23/10 05/16/12 [address] [place] [address] documented as of this encounter
--- OUTSIDE RECORDS SUMMARY | 2022-03-14 18:51 | XMS_ITS | Encounter Summary ---
:1970 Author Organization [employer] Address [address] [place] [address] Care Team Providers Name Role Phone Lilian Persaud DO Primary Care Provider Reason for Visit Reason Comments LAB RESULTS Encounter Details Date Type Department Care Team Description 04/07/2011 Telephone [facility] Lilian Persaud DO LAB RESULTS 1415 [facility] . [address] [place] [address] [place] [address] [phone] (Wo rk) Social History Tobacco Use Types [...] hyperglyceridemia documented in this encounter Care Teams Materials Clerk Relationship Specialty Start Date End Date Lilian Persaud, PCP - General 12/23/10 05/16/12 [address] [place], [place] [address] documented as of this encounter
--- OUTSIDE RECORDS SUMMARY | 2022-03-14 18:51 | XMS_ITS | Encounter Summary ---
:1970 Author Organization [facility] Address [address] [place] [address] Care Team Providers Name Role Phone Lilian Persaud DO Primary Care Provider Reason for Visit Reason Comments Chest Pain Encounter Details Date Type Department Care Team Description 05/13/2011 Nurse Triage [facility] Lilian Persaud DO Chest Pain [address] [address] [place] [address] [place] [address] [phone] (Wo rk) Social History Tobacco Use Types Packs/Day Years Used Date Smoking Tobacco: Never Assessed Sex Assigned at Date Recorded Not on file documented as of this encounter Nursing Notes Griselda Ventura RN - 05/13/2011 7:59 PM CST patient calling telling me he recently had an MS and stint. Started with chest pain 5 minutes ago and feels a bit sob. Talking in full sentences and with him. Asked him to hang up and call 911. [place] they live one mile from [facility] and can drive him as it may be faster than 911. I told him ONLY if they left Immediately. will take him now. Protocol: CHEST [id number] Affirmative: [1] Chest pain lasting > 5 minutes AND [2] history of heart disease (e.g., heart attack, bypass surgery, angina, angioplasty) Disposition of Call 911 suggested. documented in this encounter Plan of Treatment Not on filedocumented as of this encounter Visit Diagnoses Not on filedocumented in this encounter Care Teams Certified Nurses' Aide Relationship Specialty Start Date End Date Lilian Persaud DO PCP - General 12/23/10 05/16/12 [address] [place] [address] documented as of this encounter
--- OUTSIDE RECORDS SUMMARY | 2022-03-14 18:51 | XMS_ITS | Encounter Summary ---
:1970 Author Organization [employer] Address [address] [place] [address] Care Team Providers Name Role Phone Lilian Persaud DO Primary Care Provider Reason for Visit Reason Comments Diabetes WART Encounter Details Date Type Department Care Team Description 04/06/2011 Office Visit [facility] Lilian Persaud, DM w/o complication type II, uncontrolled (Primary Dx); Medicine DO Other disorders of lipoid metabolism; [address] [address] [facility] Hypertriglyceridemia; [place] [address] [place], [place] Plantar wart; [phone] [address] DM renal manif type II, uncontrolled Social History Tobacco Use Types Packs/Day Years Used Date Smoking Tobacco: Never Assessed Sex Assigned at Date Recorded Not on file documented as of this encounter Last Filed Vital Signs Vital Sign Reading Time Taken Comments Blood Pressure 120/78 04/06/2011 1:05 PM SURGERY AIDE Pulse 103 04/06/2011 1:05 PM SURGERY AIDE Temperature - - Respiratory Rate - - Oxygen Saturation - - Inhaled Oxygen Concentration - - Weight 99.8 kg (220 lb) 04/06/2011 1:05 PM SURGERY AIDE Height - - Body Mass Index 32.02 [...] current dose. Follow up in 4-6 weeks. ERY AIDE documented in this encounter Progress Notes Lilian [...] DESTRUCT BENIGN SKIN LESIONS UP TO 14 [id number] 1. Vomiting likely side effect of metformin. [...] uncontrolled documented in this encounter Care Teams Blower Feeder Dyed Raw Stock Relationship Specialty Start Date End Date Lilian Persaud DO PCP - General 12/23/10 05/16/12 [address] [place] [address] documented as of this encounter
--- OUTSIDE RECORDS SUMMARY | 2022-03-14 18:51 | XMS_ITS | Encounter Summary ---
:1970 Author Organization [facility] Address [address] [place] [address] Care Team Providers Name Role Phone Lilian Persaud DO Primary Care Provider Reason for Visit Reason Comments RESULTS, TEST Encounter Details Date Type Department Care Team Description 02/03/2011 [facility] DO RESULTS, TEST [address] [facility] [address] [place] [address] [place] [address] [phone] (Wo rk) Social History Tobacco Use Types [...] appointment in February. New prescription faxed to [facility] [place]. documented in this encounter Plan of Treatment Not on filedocumented as of this encounter Visit Diagnoses Not on filedocumented in this encounter Care Teams Mail Carrier And Clerk Relationship Specialty Start Date End Date Lilian Persaud DO PCP - General 12/23/10 05/16/[address] [place] [address] documented as of this encounter
--- OUTSIDE RECORDS SUMMARY | 2022-03-14 18:51 | XMS_ITS | Encounter Summary ---
:1970 Author Organization [facility] Address [address] [place] [address] Care Team Providers Name Role Phone Lilian Persaud DO Primary Care Provider Reason for Visit Reason Comments Refill Encounter Details Date Type Department Care Team Description 03/16/[address] [facility] Lilian Persaud DO Refill [address] [address] [facility] [place] [address] [place] [address] [phone] (Wo rk) Social History Tobacco Use Types Packs/Day Years Used Date Smoking Tobacco: Never Assessed Sex Assigned at Date Recorded Not on file documented as of this encounter Nursing Notes Lilian Persaud DO - 03/17/2011 8:11 AM CST pt has an appt this afternoon at 2 pm. I will address refills at ov. ERENCE ASSISTANT Maximilian Ag - 03/17/2011 7:40 AM CST last OV for diabetes 01/22/11 with recheck directed in 6 weeks but no protocol labs listed To primary documented in this encounter Plan of Treatment Not on filedocumented as of this encounter Visit Diagnoses Not on filedocumented in this encounter Care Teams Creative Writing Professor Relationship Specialty Start Date End Date Lilian Persaud DO PCP - General 12/23/10 05/16/12 [address] [place] [address] documented as of this encounter
--- OUTSIDE RECORDS SUMMARY | 2022-03-14 18:51 | XMS_ITS | Encounter Summary ---
:1970 Author Organization [facility] Address [address] [place] [address] Care Team Providers Name Role Phone Lilian Persaud DO Primary Care Provider Encounter Details Date Type Department Care Team Description 04/06/2011 Lab Visit [facility] Other disorders of lipoid me tabolism; [address] DM w/o complication type II, uncontrolled [place] [address] Social History Tobacco Use Types Packs/Day Years Used Date Smoking Tobacco: Never Assessed Sex Assigned at Date Recorded Not on file documented as of this encounter Plan of Treatment Not on filedocumented as of this encounter Procedures Procedure Name Priority Date/Time Associated Diagnosis Comme nts GLUCOSE Routine 04/06/2011 1:53 PM Type II or Results f or this HYDRODYNAMICS TEACHER unspecified type procedure a re in diabetes mellitus the result s without mention of section. complication, uncontrolled (HRC) LIPID PANEL AND Routine 04/06/2011 1:53 PM Other disorders of Results for this DIRECT LDL(IF NEEDED) HYDRODYNAMICS TEACHER lipoid metabolism p rocedure are in (HRC) the results section. ELECTROLYTE PANEL Routine 04/06/2011 1:53 PM Type II or Resu lts for this HYDRODYNAMICS TEACHER unspecified type procedure a re in diabetes mellitus the result s without mention of section. complication, uncontrolled (HRC) HGB A1C Routine 04/06/2011 1:53 PM Type II or Results f or this HYDRODYNAMICS TEACHER unspecified type procedure a re in diabetes mellitus the result s without mention of section. complication, uncontrolled (HRC) ALT (SGPT) Routine 04/06/2011 1:53 PM Other disorders of Res ults for this HYDRODYNAMICS TEACHER lipoid metabolism procedure are in (HR) the results section. AST Routine 04/06/2011 1:53 PM Other disorders of Res ults for this HYDRODYNAMICS TEACHER lipoid metabolism procedure are in (HRC) the results section. VENIPUNCTURE (SOBEIDA) Routine 04/06/2011 Results for this procedure are i n the results section. documented in this encounter Results (ABNORMAL) Hgb A1c (04/06/2011 1:53 PM HYDRODYNAMICS TEACHER) athologist [facility] HGB A1C 9.9 (H) 0.0 - 6.0 % HP CONVERSION Specimen Anatomical Collection Method Collection Time Receive d Time (Source) Location / / Volume Laterality 04/06/2011 1:53 PM 1 8:50 HYDRODYNAMICS TEACHER PM HYDRODYNAMICS TEACHER Lilian Persaud DO LAB_1 Performing Organization Address City/[facility] Phon e Number HP CONVERSION (ABNORMAL) GLUCOSE (04/06/2011 1:53 PM HYDRODYNAMICS TEACHER) athologist [facility] Lab Glucose 236 (H) 60 - 100 HP CONVERSION mg/dL Specimen Anatomical Collection Method Collection Time Receive d Time (Source) Location / / Volume Laterality 04/06/2011 1:53 PM 1 8:03 HYDRODYNAMICS TEACHER PM HYDRODYNAMICS TEACHER Narrative HP CONVERSION - 04/06/2011 8:23 PM HYDRODYNAMICS TEACHER [place] [address] Lilian Persaud DO LAB_1 Performing Organization Address City/[facility] Phon e Number HP CONVERSION (ABNORMAL) Electrolyte Panel (04/06/2011 1:53 PM HYDRODYNAMICS TEACHER) athologist [facility] Sodium 132 (L) 137 - 147 HP CONVERSION mEq/L Potassium 4.5 3.5 - 5.2 HP CONVERSION mEq/L Chloride 99 98 - 110 HP CONVERSION mEq/L Bicarbonate 25 23 - 33 HP CONVERSION mmol/L Specimen Anatomical Collection Method Collection Time Receive d Time (Source) Location / / Volume Laterality 04/06/2011 1:53 PM 1 8:03 HYDRODYNAMICS TEACHER PM HYDRODYNAMICS TEACHER Narrative HP CONVERSION - 04/06/2011 8:23 PM HYDRODYNAMICS TEACHER Performed at [facility], [address] [place] [address] Lilian Persaud DO LAB_1 Performing Organization Address [facility] Phon e Number HP CONVERSION (ABNORMAL) Lipid Panel and Direct LDL(If Needed) (04/06/2011 1:53 PM HYDRODYNAMICS TEACHER) [facility] Method Time Signature Cholesterol 280 (H) 0 [...] Volume Laterality 04/06/2011 1:53 PM 1 8:03 HYDRODYNAMICS TEACHER PM HYDRODYNAMICS TEACHER Narrative HP CONVERSION - 04/06/2011 8:23 PM HYDRODYNAMICS TEACHER Performed at [facility], [address] [place] [address] Lilian Persaud DO LAB_1 Performing Organization Address [facility] Phon e Number HP CONVERSION AST (04/06/2011 1:53 PM HYDRODYNAMICS TEACHER) [facility] Method Time Signature Aspartate 34 0 - 45 HP CONVERSION Aminotransferase U/L Specimen Anatomical Collection Method Collection Time Receive d Time (Source) Location / / Volume Laterality 04/06/2011 1:53 PM 1 8:03 HYDRODYNAMICS TEACHER PM HYDRODYNAMICS TEACHER Narrative HP CONVERSION - 04/06/2011 8:23 PM HYDRODYNAMICS TEACHER Performed at [facility], [address] [place] [address] Lilian Persaud DO LAB_1 Performing Organization Address [facility] Phon e Number HP CONVERSION ALT (SGPT) (04/06/2011 1:53 PM HYDRODYNAMICS TEACHER) [facility] Method Time Signature Alanine 45 4 - 55 HP CONVERSION Aminotransferase U/L Specimen Anatomical Collection Method Collection Time Receive d Time (Source) Location / / Volume Laterality 04/06/2011 1:53 PM 1 8:03 HYDRODYNAMICS TEACHER PM HYDRODYNAMICS TEACHER Narrative HP CONVERSION - 04/06/2011 8:23 PM HYDRODYNAMICS TEACHER Performed at [facility], [address] [place] [address] Lilian Persaud DO LAB_1 Performing Organization Address City/[facility] Phon e Number HP CONVERSION VENIPUNCTURE (SOBEIDA) (04/06/2011) P athologist Signature Venipuncture Done HP CONVERSION Specimen (Source) Anatomical Location Collection Method / Collectio n Time Received Time / Laterality Volume 04/06/2011 04/06/2011 Narrative HP CONVERSION - 04/06/2011 2:22 PM HYDRODYNAMICS TEACHER Performed at [facility], [address] [facility] [place] [address] Lilian Persaud DO LAB_1 Performing Organization Address City/[facility] Code Phon e Number HP CONVERSION documented in this encounter Visit Diagnoses Diagnosis 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 Type II or unspecified type diabetes jasen litus without mention of complication, uncontrolled documented in this encounter Care Teams Ground Worker Relationship Specialty Start Date End Date Lilian Persaud DO PCP - General 12/23/10 05/16/12 [address] [facility] [place] [address] documented as of this encounter
--- OUTSIDE RECORDS SUMMARY | 2022-03-14 18:51 | XMS_ITS | Encounter Summary ---
:1970 Author Organization [facility] Address [address] [address] Care Team Providers Name Role Phone Lilian Persaud DO Primary Care Provider Reason for Visit Reason Comments Prior Authorization Request Encounter Details Date Type Department Care Team Description 02/02/2011 Notes/Orders [facility] Lilian Persaud DO [address] [facility] . [address] [place] [address] [place] [address] [phone] (Wo rk) Social History Tobacco Use Types Packs/Day Years Used Date Smoking Tobacco: Never Assessed Sex Assigned at Date Recorded Not on file documented as of this encounter Progress Notes Herlinda Lucio HUC - 02/02/2011 4:38 PM CDT See message from 01/26. FERNANDO arreola. Approval faxed to pharmacy and sent to [facility]. documented in this encounter Plan of Treatment Not on filedocumented as of this encounter Visit Diagnoses Not on filedocumented in this encounter Care Teams Bull Float Finisher Relationship Specialty Start Date End Date Lilian Persaud DO PCP - General 12/23/10 05/16/12 [address] [place] [address] documented as of this encounter
--- OUTSIDE RECORDS SUMMARY | 2022-03-14 18:51 | XMS_ITS | Encounter Summary ---
:1970 Author Organization [facility] Address [address], [place] [address] Care Team Providers Name Role Phone Lilian Persaud DO Primary Care Provider Reason for Visit Reason Comments Diabetic Concern Encounter Details Date Type Department Care Team Description 01/29/2011 Telephone [place] [facility] Lilian Persaud DO Diabetic Concern [address] [facility] [address] [address] [facility] [place] [address] [place] [address] [phone] (Wo rk) Social History Tobacco Use Types [...] filedocumented in this encounter Care Teams Global Logistics Manager Relationship Specialty Start Date End Date Lilian Persaud DO PCP - General 12/23/10 05/16/12 [address] [place], [place] [id number] documented as of this encounter
--- OUTSIDE RECORDS SUMMARY | 2022-03-14 18:51 | XMS_ITS | Encounter Summary ---
:1970 Author Organization [employer] Address [address] [place] [address] Care Team Providers Name Role Phone Lilian Persaud DO Primary Care Provider Reason for Visit Reason Comments UPDATE Encounter Details Date Type Department Care Team Description 05/28/2011 [facility]phone [facility] Lilian Persaud DO UPDATE [address] [facility] . [address] [place] [address] [place] [address] [phone] (Wo rk) Social History Tobacco Use Types Packs/Day Years Used Date Smoking Tobacco: Never Assessed Sex Assigned at Date Recorded Not on file documented as of this encounter Nursing Notes Jacqueline Herrera LPN - 05/28/2011 3:39 PM CST LM with info GORY DIRECTOR Lilian Persaud DO - 05/28/2011 12:13 PM [...] 05/27 289 2 hr PP: 05/27 396 GORY DIRECTOR Lizette Blas - 05/28/2011 11:32 AM CST Non -Symptom Message from Front Line Primary Care Provider: Lilian Persaud DO Message: Patient calling to give blood sugar results as requested. [phone] GORY DIRECTOR documented in this encounter Plan of Treatment Not on filedocumented as of this encounter Visit Diagnoses Diagnosis Type II or unspecified type diabetes jasen litus without mention of complication, uncontrolled - Primary documented in this encounter Care Teams Nickel Operator Relationship Specialty Start Date End Date Lilian Persaud DO PCP - General 12/23/10 05/16/12 [address] [place] [id number] documented as of this encounter
--- OUTSIDE RECORDS SUMMARY | 2022-03-14 18:51 | XMS_ITS | Encounter Summary ---
:1970 Author Organization [employer] Address [address] [place] [address] Care Team Providers Name Role Phone Cori Lilian Luther DO Primary Care Provider Encounter Details Date Type Department Care Team Description 04/29/2011 Hospital Encounter Heart & Vascular Brisa Negrete [facility] MD Simi Echocardiogram [address] [facility], [address] [place] [address] [phone] Social History Tobacco Use Types Packs/Day Years [...] respiration Re sults for this ECHOCARDIOGRAM PM SPANISH INTERPRETER/TRANSLATOR procedure are in the results section. documented in this encounter Results Outreach Stress Echocardioram (04/29/2011 4:28 PM SPANISH INTERPRETER/TRANSLATOR) Specimen (Source) Anatomical Location Collection Method / Collectio n Time Received Time / Laterality Volume Narrative HP CONVERSION - 04/29/2011 4:28 PM SPANISH INTERPRETER/TRANSLATOR See results in APPS: [place]. Brisa Negrete MD PN ECHO ORDERABLES Performing Organization Address City/State/ZIP Code Phon e Number HP CONVERSION documented in this encounter Visit Diagnoses Diagnosis Painful respiration documented in this encounter Care Teams Securities Research Analyst Relationship Specialty Start Date End Date Lilian Persaud DO PCP - General 12/23/10 05/16/12 [address] [place] [address] documented as of this encounter
--- OUTSIDE RECORDS SUMMARY | 2022-03-14 18:51 | XMS_ITS | Encounter Summary ---
:1970 Author Organization [facility] Address [address] [place] [address] Care Team Providers Name Role Phone Lilian Persaud DO Primary Care Provider Reason for Visit Reason Comments Diabetes WART Encounter Details Date Type Department Care Team Description 05/26/2011 Office Visit [facility] Lilian Persaud, DM w/o complication type II, uncontrolled (Primary Dx); Medicine DO Other disorders of lipoid metabolism; [address] [address] [facility] Cor athrscl-uns vessel; [place] [address] [place], [place] Plantar wart; [phone] [address] Tobacco use disorder Social History Tobacco Use Types Packs/Day Years Used Date Smoking Tobacco: Never Assessed Sex Assigned at Date Recorded Not on file documented as of this encounter Last Filed Vital Signs Vital Sign Reading Time Taken Comments Blood Pressure 124/89 05/26/2011 1:53 PM ASIAN ART CURATOR Pulse 88 05/26/2011 1:53 PM ASIAN ART CURATOR Temperature - - Respiratory Rate - - Oxygen Saturation - - Inhaled Oxygen Concentration - - Weight 98 kg (216 lb) 05/26/2011 1:53 PM ASIAN ART CURATOR Height - - Body Mass Index 31.44 01/22/2011 11:08 AM CDT documented in this encounter Patient Instructions Patient InstructionsLilian Persaud DO - 05/26/2011 2:41 PM CST use Lantus 30 units at night Tue, and then call clinic Tuesday morning with Fasting blood sugarreadings Decrease Metformin to 1000 mg daily Continue all other meds at usual dose N ART CURATOR documented in this encounter Progress Notes Lilian [...] DESTRUCT BENIGN SKIN LESIONS UP TO 14 [id number] Tobacco use disorder - nicotine (NICODERM CQ) [...] patches prescribed and signed for 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 Patient aware of cessation [...] unspecified type of vessel, benton or graft (HRC) Coronary atherosclerosis of unspecified type of vessel, [place] or graft Plantar wart Tobacco use disorder (HRC) Tobacco use disorder documented in this encounter Care Teams Optical Glass Wet Inspector Relationship Specialty Start Date End Date Lilian Persaud DO PCP - General 12/23/10 05/16/12 [address] [place] [address] documented as of this encounter
--- OUTSIDE RECORDS SUMMARY | 2022-03-14 18:51 | XMS_ITS | Encounter Summary ---
:1970 Author Organization [employer] Address [address] [place] [address] Care Team Providers Name Role Phone Rolando Lopez DO Primary Care Provider Encounter Details Date Type Department Care Team Description 05/14/2011 Hospital Encounter Heart & Vascular Steve More Ot her disorders of lipoid metabolism; [facility] Higinio Morales MD Hypertriglyceridemia; [address] DM (diabetes mellitus) type II uncontrolled with renal manifestation; [address] Laboratory examination, unspecified; [address] [place], [place] Cor athrscl-uns vessel [facility] [address] [place] [id number] [phone] Social History Tobacco Use Types Packs/Day Years Used Date Smoking Tobacco: Never Assessed Sex Assigned at Date Recorded Not on file documented as of this encounter Last Filed Vital Signs Vital Sign Reading Time Taken Comments Blood Pressure 146/84 05/14/2011 11:00 AM TESTER FOOD PRODUCTS Pulse 74 05/14/2011 11:00 AM TE[employer]ODU[employer] Temperature 36.7 ??C (98.1 ??F) 05/14/2011 11:00 AM TE[employer]ODU[employer] Respiratory Rate 18 05/14/2011 11:00 AM TESTER FOOD PRODUCTS Oxygen Saturation 96% 05/14/2011 11:00 AM TESTER [employer]OD PRODUCTS Inhaled Oxygen Concentration - - Weight 101.5 kg (223 lb 12.3 oz) 05/14/2011 11:00 AM TE[employer] PRODU[employer] Height - - Body Mass Index 32.57 [...] hours). 1 12 capsuleIndications: Indications: Hypertriglyceridemia HYPERTRIGLYCERIDEMIA ([facility]) divalproex (DEPAKOTE) Take 2,000 mg [...] Pt does have an appt scheduled for [facility] 05/25/11. If pt discharges before Tuesday, will continue education at [facility]. Cordelia Ledesma RD, CDE Johnnie Ruggiero [...] management re CAD. Johnnie Ruggiero M.D. Pager: [phone] Rolando Villegas RN - 05/14/2011 11:43 AM CST Preparing patient for coronary angiogram scheduled later today. Reports he had his daily ASA and Plavix already this morning. Declines to watch video, had an angio two weeks ago and remembers procedurewell. Verbalizes that he hopes to discharge home after angio today. Requesting nicotine patch, reports he quit smoking two weeks ago after [place] and has been having good results with [...] Primary Care Provider: Rolando Lopez DO Primary Quality Assurance Specialist: Scar Isaacs MD History of Present Illness: [...] time and resolved with morhpine in the [place] ER. He was admitted there, and transferred [...] 250.02 ??? Erectile dysfunction 607.84D ??? Acute [place] 410.90BQ ??? 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 History Social [...] time. Thank You, Fabian Gutierrez MD Cardiology [facility]. ER FOOD PRODUCTS documented in this encounter Miscellaneous Notes Medication [...] Date:05/14/11, End Date:-, Frequency:- *No Administrations Recorded ER [employer] documented in this encounter Plan of Treatment Not on filedocumented as of this encounter Procedures Procedure Name Priority Date/Time Associated Diagnosis Comme nts BEDSIDE GLUCOSE Routine 05/14/2011 1:04 PM Result s for this MONITOR POCT TE[employer] procedure are i n the results section. CARDIAC CATH Routine 05/14/2011 12:53 PM Results for this PROCEDURE [employer] procedure are i n the results section. ECG 12 LEAD Routine 05/14/2011 12:48 PM Results for this INPATIENT [employer] procedure are i n the results section. XR CHEST 2 VIEWS STAT 05/14/2011 12:36 PM Resu lts for this TE[employer] procedure are i n the results section. CARD PROF ANDRES 90 STAT 05/14/2011 12:28 PM Re sults for this MIN [employer]ODU[employer] procedure are i n the results section. CARDIAC MARKER STAT 05/14/2011 11:38 AM Result s for this PROFILE [employer] procedure are i n the results section. CK, TOTAL STAT 05/14/2011 11:38 AM Results for this TE[employer]ODU[employer] procedure are i n the results section. documented in this encounter Results BEDSIDE GLUCOSE MONITOR (05/14/2011 1:04 PM TE[employer]ODU[employer]) P athologist Signature Bedside Blood 290 mg/dL HP CONVERSION Glucose Test Specimen Anatomical Collection Method Collection Time Receive d Time (Source) Location / / Volume Laterality 05/14/2011 1:04 PM 2 1:25 TESTER FOOD [employer]ODUCTS PM [employer]ODU[employer] Steve More MD LAB_1 Performing Organization Address City/State/ZIP Code Phon e Number HP CONVERSION Cardiac Cath Procedure (05/14/2011 12:53 PM TE[employer]) Specimen (Source) Anatomical Collection Method Collection Time Re ceived Time Location / / Volume Laterality 05/14/2011 12:53 PM TESTER [employer]ODU[employer] Narrative PN CENTRICITY - 05/14/2011 12:53 PM TE[employer] SHARLENE KRISHNAMURTHY ?? [id number] Cardiac Catheterization : 1970 Age: 41 years Gender: Male Study date: 05/14/2011 Test time: 14:22 - 14:40 Fluoro time: 1.9 min PPH Staff: ??Antoinette Olivera RN Diagnostic Quality Assurance Specialist: ??ARTIE RUGGIERO MD Electrician Telephone: ??Ceci Bowles Scrub: ??Julia Che RN Monitor: [...] obtained. The patient was brought to the microbiology laboratory manager and placed on the table. The planned [...] 17:06:24 PPH Staff: Antoinette Olivera RN Diagnostic Quality Assurance Specialist: JOHNNIE RUGGIREO MD Electrician Telephone: Ceci Bowles Scrub: Julia Che RN Monitor: [...] ECG 12 Lead Inpatient (05/14/2011 12:48 PM TE[employer]) P athologist Signature Ventricular Rate 71 BPM MUSE GHP Atrial Rate 71 BPM MUSE GHP P-R Interval 142 ms MUSE GHP QRS Duration 94 ms MUSE GHP QT 388 ms MUSE GHP QTc 421 ms MUSE GHP P [place] 28 degrees MUSE GHP R [place] 12 degrees MUSE GHP T [place] -2 degrees MUSE GHP Specimen (Source) Anatomical Collection Method Collection Time Re ceived Time Location / / Volume Laterality 05/14/2011 12:48 PM TESTER [employer]ODU[employer] Narrative MUSE GHP - 07/31/2019 3:12 PM [...] e Number MUSE GHP [address] [place] [address] XR Chest 2 Views (05/14/2011 12:36 PM TE[employer]) Anatomical Region Laterality Modality Chest, Lung Other Specimen (Source) Anatomical Location Collection Method / Collectio n Time Received Time / Laterality Volume Impressions 05/14/2011 12:42 PM TESTER [employer]ODUCTS IMPRESSION: ??Negative PA and left later al chest. Narrative 05/14/2011 12:42 PM TESTER [employer]ODUCTS HISTORY: ??chest pain COMPARISON: ??None. FINDINGS: ??Two [...] PROF TROPI 90 MIN (05/14/2011 12:28 PM TE[employer]) athologist Signature Tropi at 90 Min <0.05 0.00 - HP CONVERSION 0.04 ng/mL Specimen Anatomical Collection Method Collection Time Receive d Time (Source) Location / / Volume Laterality 05/14/2011 12:28 05/14/2011 PM [employer] 12:39 PM TESTER [employer]ODUCTS Steve More MD LAB_1 Performing Organization Address [facility] Phon e Number HP CONVERSION CK, Total (05/14/2011 11:38 AM TESTER [employer]) athologist Signature Creatine Kinase 85 0 - 225 HP CONVERSION U/L Specimen Anatomical Collection Method Collection Time Receive d Time (Source) Location / / Volume Laterality 05/14/2011 11:38 05/14/2011 AM [employer] 11:42 AM TESTER [employer] PRODUCTS Steve More MD LAB_1 Performing Organization Address [facility] Phon e Number HP CONVERSION CARDIAC MARKER PROFILE (05/14/2011 11:38 AM TESTER [employer]ODU[employer]) athologist Signature TROPONIN I <0.05 0.00 - 0.04 HP CONVERSION ng/mL Specimen Anatomical Collection Method Collection Time Receive d Time (Source) Location / / Volume Laterality 05/14/2011 11:38 05/14/2011 AM [employer] 11:42 AM TESTER [employer]ODU[employer] Steve More MD LAB_1 Performing Organization Address 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 Hypertriglyceridemia (HRC) Pure hyperglyceridemia DM (diabetes mellitus) type II uncontrol led with renal manifestation Type II or unspecified type diabetes jasen litus with renal manifestations, uncontrolled Laboratory examination, unspecified Coronary atherosclerosis of unspecified type of vessel, [place] or graft (HRC) Coronary atherosclerosis of unspecified type of vessel, [place] or graft documented in this encounter Care Teams Conference Specialist Relationship Specialty Start Date End Date Rolando Lopez DO PCP - General 12/23/10 05/16/12 [address] [place] [address] documented as of this encounter
--- OUTSIDE RECORDS SUMMARY | 2022-03-14 18:51 | XMS_ITS | Encounter Summary ---
:1970 Author Organization [employer] Address [address] [place] [address] Care Team Providers Name Role Phone Lilian Persaud DO Primary Care Provider Reason for Visit Reason Comments Diabetes Vomiting SWELLING, FOOT Encounter Details Date Type Department Care Team Description 03/17/2011 Office Visit [facility] Lilian Persaud, Paolo d isorders of lipoid metabolism (Primary Dx); Medicine DO DM w/o complication type II, uncontrolle d; [address] Vomiting alone; [place] [address] [place], [place] Plantar wart [phone] Social History Tobacco Use Types Packs/Day Years Used Date Smoking Tobacco: Never Assessed Sex Assigned at Date Recorded Not on file documented as of this encounter Last Filed Vital Signs Vital Sign Reading Time Taken Comments Blood Pressure 112/64 03/17/2011 1:54 PM ANTITANK ASSAULT GUNNER Pulse 70 03/17/2011 1:54 PM ANTITANK ASSAULT GUNNER Temperature - - Respiratory Rate - - Oxygen Saturation - - Inhaled Oxygen Concentration - - Weight 101.6 kg (224 lb) 03/17/2011 1:54 PM ANTITANK ASSAULT GUNNER Height - - Body Mass Index 32.6 01/22/2011 11:08 AM CDT documented in this encounter Patient Instructions Patient InstructionsLilian Persaud DO - 03/17/2011 3:08 PM CST Come in fasting for cholesterol and other blood work in the next 1-2 weeks. Follow up 2 weeks for plantar wart treatment Follow up 1 month for diabetes check TANK ASSAULT GUNNER documented in this encounter Progress Notes Lilian [...] DESTRUCT BENIGN SKIN LESIONS UP TO 14 [id number] 1. Vomiting may be a side effect [...] alternatives discussed for plantar wart treatment, including mkiz-sdz-afaekls therapies, cantharidin, injections, cryotherapy and salicylic acid. [...] wart documented in this encounter Care Teams Granulator Operator Relationship Specialty Start Date End Date Lilian Persaud DO PCP - General 12/23/10 05/16/12 [address] [place], [place] [address] documented as of this encounter
--- OUTSIDE RECORDS SUMMARY | 2022-03-14 18:51 | XMS_ITS | Encounter Summary ---
:1970 Author Organization [employer] Address [address], [place] [address] Care Team Providers Name Role Phone Lilian Persaud Primary Care Provider Reason for Visit Reason Comments Missed Appointment Encounter Details Date Type Department Care Team Description 05/19/2011 Telephone [facility] Vanessa Ram PA-C Missed Appointment [address] [facility] . [address] [place] [address] [place], [place] [phone] (Wo rk) Social History Tobacco Use Types [...] it for the end of June. Thanks! IONING MACHINE OPERATOR Aviva Bowles, RN - 05/19/2011 [...] he does not want to drive to [facility] for an earlier appointment with Vanessa Ram. He will call in the meantime if he experiences any issues. OK to wait until 06/07? Thanks. documented in this encounter Plan of Treatment Not on filedocumented as of this encounter Visit Diagnoses Not on filedocumented in this encounter Care Teams Vegetable Washer Relationship Specialty Start Date End Date Lilian Persaud DO PCP - General 12/23/10 05/16/12 [address] [place] [address] documented as of this encounter
--- OUTSIDE RECORDS SUMMARY | 2022-03-14 18:51 | XMS_ITS | Encounter Summary ---
:1970 Author Organization [facility] Address [address] [place] [address] Care Team Providers Name Role Phone Lilian Persaud DO Primary Care Provider Reason for Visit Reason Comments ERRONEOUS ENTRY Encounter Details Date Type Department Care Team Description 03/08/[address] [facility] Lilian Persaud DO ERRONEOUS ENTRY 14[address] [facility] . [address] [place] [address] [place] [address] [phone] (Wo rk) Social History Tobacco Use Types Packs/Day Years Used Date Smoking Tobacco: Never Assessed Sex Assigned at Date Recorded Not on file documented as of this encounter Plan of Treatment Not on filedocumented as of this encounter Visit Diagnoses Not on filedocumented in this encounter Care Teams Business Office Manager Relationship Specialty Start Date End Date Lilian Persaud DO PCP - General 12/23/10 05/16/12 1415 [place] [address] documented as of this encounter
--- OUTSIDE RECORDS SUMMARY | 2022-03-14 18:51 | XMS_ITS | Encounter Summary ---
:1970 Author Organization [facility] Address [address] [place] [address] Care Team Providers Name Role Phone Lilian Persaud DO Primary Care Provider Reason for Visit Reason Comments Refill Encounter Details Date Type Department Care Team Description 02/17/2011 [facility] Lilian [facility]aud DO Refill [address] [facility] . [address] [place] [address] [place] [address] [phone] (Wo rk) Social History Tobacco Use Types Packs/Day Years Used Date Smoking Tobacco: Never Assessed Sex Assigned at Date Recorded Not on file documented as of this encounter Plan of Treatment Not on filedocumented as of this encounter Visit Diagnoses Not on filedocumented in this encounter Care Teams Ranch Cook Relationship Specialty Start Date End Date Lilian Persaud DO PCP - General 12/23/10 05/16/12 1415 [place] [address] documented as of this encounter
--- OUTSIDE RECORDS SUMMARY | 2022-03-14 18:51 | XMS_ITS | Encounter Summary ---
:1970 Author Organization [facility] Address [address] [place] [address] Care Team Providers Name Role Phone Lilian Persaud DO Primary Care Provider Encounter Details Date Type Department Care Team Description 06/04/2011 Lab Visit [place] [facility] Other disorders of lipoid [address] [facility] [place] [address] Social History Tobacco Use Types Packs/Day Years Used Date Smoking Tobacco: Never Assessed Sex Assigned at Date Recorded Not on file documented as of this encounter Plan of Treatment Not on filedocumented as of this encounter Procedures Procedure Name Priority Date/Time Associated Diagnosis Comme nts LIPID PANEL AND Routine 06/04/2011 1:02 PM Other disorders of Results for this DIRECT LDL(IF USER EXPERIENCE RESEARCHER lipoid metabolism procedure are in NEEDED) ([facility]) the results section. LDL CHOLESTEROL, Routine 06/04/2011 1:02 PM Resul ts for this DIRECT MEASURED USER EXPERIENCE RESEARCHER procedure ar e in the results section. ALT (SGPT) Routine 06/04/2011 1:02 PM Other disorders of Res ults for this USER EXPERIENCE RESEARCHER lipoid metabolism procedure are in ([facility]) the results section. AST Routine 06/04/2011 1:02 PM Other disorders of Res ults for this USER EXPERIENCE RESEARCHER lipoid metabolism procedure are in ([facility]) the results section. CK, TOTAL Routine 06/04/2011 1:02 PM Other disorders of Res ults for this USER EXPERIENCE RESEARCHER lipoid metabolism procedure are in ([facility]) the results section. documented in this encounter Results LDL Cholesterol, Direct Measured (06/04/2011 1:02 PM USER EXPERIENCE RESEARCHER) athologist Signature LDL Direct 115 0 - 130 HP CONVERSION mg/dL Specimen Anatomical Collection Method Collection Time Receive d Time (Source) Location / / Volume Laterality 06/04/2011 1:02 PM 2 8:20 USER EXPERIENCE RESEARCHER PM USER EXPERIENCE RESEARCHER Narrative HP CONVERSION - 06/04/2011 9:21 PM USER EXPERIENCE RESEARCHER Performed at [facility], [address] [place] [address] Lilian Persaud DO LAB_1 Performing Organization Address [facility] Phon e Number HP CONVERSION CK, Total (06/04/2011 1:02 PM USER EXPERIENCE RESEARCHER) athologist Signature Creatine Kinase 60 0 - 225 HP CONVERSION U/L Specimen Anatomical Collection Method Collection Time Receive d Time (Source) Location / / Volume Laterality 06/04/2011 1:02 PM 2 8:20 USER EXPERIENCE RESEARCHER PM USER EXPERIENCE RESEARCHER Narrative HP CONVERSION - 06/04/2011 9:07 PM USER EXPERIENCE RESEARCHER Performed at [facility], [address] [place] [address] Lilian Persaud DO LAB_1 Performing Organization Address [facility] Phon e Number HP CONVERSION AST (06/04/2011 1:02 PM USER EXPERIENCE RESEARCHER) [facility] Method Time Signature Aspartate 38 0 - 45 HP CONVERSION Aminotransferase U/L Specimen Anatomical Collection Method Collection Time Receive d Time (Source) Location / / Volume Laterality 06/04/2011 1:02 PM 2 8:20 USER EXPERIENCE RESEARCHER PM USER EXPERIENCE RESEARCHER Narrative HP CONVERSION - 06/04/2011 9:07 PM USER EXPERIENCE RESEARCHER Performed at [facility], [address] [place] [address] Lilian Persaud DO LAB_1 Performing Organization Address [facility] Phon e Number HP CONVERSION (ABNORMAL) ALT (SGPT) (06/04/2011 1:02 PM USER EXPERIENCE RESEARCHER) [facility] Method Time Signature Alanine 69 (H) 4 - 55 HP CONVERSION Aminotransferase U/L Specimen Anatomical Collection Method Collection Time Receive d Time (Source) Location / / Volume Laterality 06/04/2011 1:02 PM 2 8:20 USER EXPERIENCE RESEARCHER PM USER EXPERIENCE RESEARCHER Narrative HP CONVERSION - 06/04/2011 9:07 PM USER EXPERIENCE RESEARCHER Performed at [facility], [address] [place] [address] Lilian Persaud DO LAB_1 Performing Organization Address City/[facility] Phon e Number HP CONVERSION (ABNORMAL) Lipid Panel and Direct LDL(If Needed) (06/04/2011 1:02 PM USER EXPERIENCE RESEARCHER) [facility] gist Method Time Signature Cholesterol 204 (H) 0 - 200 HP CONVERSION mg/dL Triglycerides 593 (H) 0 - 149 HP CONVERSION mg/dL HDL Cholesterol 29 (L) >39 mg/dL HP CONVERSION Cholesterol/HDL 7.0 HP CONVERSION Ratio Screen Length Of Fast 12.0 HP CONVERSION Specimen Anatomical Collection Method Collection Time Receive d Time (Source) Location / / Volume Laterality 06/04/2011 1:02 PM 2 8:20 USER EXPERIENCE RESEARCHER PM USER EXPERIENCE RESEARCHER Narrative HP CONVERSION - 06/04/2011 9:07 PM USER EXPERIENCE RESEARCHER Performed at [facility], [address] [place] [address] Lilian Persaud DO LAB_1 Performing Organization Address [facility] Phon e Number HP CONVERSION documented in this encounter Visit Diagnoses Diagnosis 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
--- OUTSIDE RECORDS SUMMARY | 2022-03-14 18:51 | XMS_ITS | Encounter Summary ---
:1970 Author Organization [facility] Address [address] [place] [address] Care Team Providers Name Role Phone Lilian Persaud DO Primary Care Provider Reason for Visit Reason Comments Diabetic Concern Encounter Details Date Type Department Care Team Description 03/25/2011 Telephone [facility] Lilian Persaud, Diabetic Concern 14[address] [facility] . [address] [place] [address] [place] [address] [phone] (Wo rk) Social History Tobacco Use Types Packs/Day Years Used Date Smoking Tobacco: Never Assessed Sex Assigned at Date Recorded Not on file documented as of this encounter Nursing Notes Gagandeep Hinojosa MD - 03/25/2011 11:41 PM CST Done Nani Rojas LPN - 03/25/2011 11:08 AM CST Pt notified as advised. Expresses understanding. States is out of Metformin, so, requests refill to [facility] in [place]. Gagandeep Sosa MD - 03/25/2011 10:53 AM CST Call pt. Could restartr metformin 1000 mg daily to start, then BID. If vomiting resumes, discontinuemetformin and consider alternative med LIDDER Marci Oliveira, RN - 03/25/2011 9:58 AM [...] or different plan? to clinician per distribution LIDDER Jessica Tirado - 03/25/2011 9:52 AM CST Front Line Sx Call Primary Manager Underwriting: Lilian Persaud DO Reason for call/symptom: pt would like to speak to nurse regarding high blood sugar LIDDER documented in this encounter Plan of Treatment Not on filedocumented as of this encounter Visit Diagnoses Not on filedocumented in this encounter Care Teams Golf Club Facer Relationship Specialty Start Date End Date Lilian Persaud DO PCP - General 12/23/10 05/16/12 1415 [place] [address] documented as of this encounter
--- OUTSIDE RECORDS SUMMARY | 2022-03-14 18:51 | XMS_ITS | Encounter Summary ---
:1970 Author Organization [facility] Address [address] [place] [address] Care Team Providers Name Role Phone Lilian Persaud DO Primary Care Provider Reason for Visit Reason Comments Diabetes Encounter Details Date Type Department Care Team Description 06/01/2011 [facility]ian Persaud DO Diabetes [facility] [facility] [address] [place] [address] [place] [address] [phone] (Wo rk) Social History Tobacco Use Types Packs/Day Years Used Date Smoking Tobacco: Never Assessed Sex Assigned at Date Recorded Not on file documented as of this encounter Nursing Notes Jacqueline Herrera LPN - 06/01/2011 4:11 PM CST Pt informed. Having no symptoms of hypoglycemia ANCE ENGINEER Lilian Persaud DO - 06/01/2011 3:06 PM CST Have him increase Lantus to 35 units for 3 days, call Tuesday morning with Fasting Blood sugar readings ANCE ENGINEER Tatyana Christian RN - 06/01/2011 2:52 PM CST Spoke with pt. Pt is calling in his fasting am blood glucose readings to report to Dr. Persaud for possible Lantus adjustment. 24: 274 25: 284 26: 287 2: 284 No other sx to report. please call with plan. Call back number listed. To Dr. Persaud ANCE ENGINEER Ale Fountain 06/01/2011 2:39 PM CST Calling in with his readings. ANCE ENGINEER documented in this encounter Plan of Treatment Not on filedocumented as of this encounter Visit Diagnoses Diagnosis Type II or unspecified type diabetes jasen litus without mention of complication, uncontrolled - Primary documented in this encounter Care Teams Stabilizer Operator Relationship Specialty Start Date End Date Lilian Persaud DO PCP - General 12/23/10 05/16/12 [address]15 [place] [address] documented as of this encounter
--- OUTSIDE RECORDS SUMMARY | 2022-03-14 18:51 | XMS_ITS | Encounter Summary ---
:1970 Author Organization [facility] Address [address] [place] [address] Care Team Providers Name Role Phone Lilian Persaud DO Primary Care Provider Reason for Visit Reason Comments Refill Encounter Details Date Type Department Care Team Description 03/25/2011 Refill [facility] Lilian Persaud, Refill [address] [address] [facility] [place] [address] [place] [address] [phone] (Wo rk) Social History Tobacco Use Types Packs/Day Years Used Date Smoking Tobacco: Never Assessed Sex Assigned at Date Recorded Not on file documented as of this encounter Nursing Notes Herlinda Lucio HUC - 03/26/2011 11:10 AM CST Patient informed HER PRODUCTION Gagandeep Hinojosa MD - 03/25/2011 5:43 PM CST Call pt. Dose limited to 1000 mg BID for 30 days to see if med can be tolerated HER PRODUCTION Judy Pittman RN - 03/25/2011 3:26 PM [...] filedocumented in this encounter Care Teams College Hire Relationship Specialty Start Date End Date Lilian Persaud DO PCP - General 12/23/10 05/16/12 [address] [place] [address] documented as of this encounter
--- OUTSIDE RECORDS SUMMARY | 2022-03-14 18:51 | XMS_ITS | Encounter Summary ---
:1970 Author Organization [facility] Address [address] [place] [address] Care Team Providers Name Role Phone Lilian Persaud DO Primary Care Provider Reason for Visit Reason Comments Prior Authorization Request Encounter Details Date Type Department Care Team Description 01/26/2011 Telephone [facility] Lilian Persaud, Prior A uthorization Medicine DO Request 14[address] [facility] . [address] [place] [address] [place], [place] [phone] [address] Social History Tobacco Use Types Packs/Day Years [...] Comment: pa or change meds Pharmacy Name: [facility] phone [phone] Pharmacy Fax# or Address: fax [phone] Clinician Name: Cori Drug Name/Strength: Januvia 25mg [...] - General 12/23/10 05/16/12 [address]15 [place] [address] documented as of this encounter
--- OUTSIDE RECORDS SUMMARY | 2022-03-14 18:51 | XMS_ITS | Encounter Summary ---
:1970 Author Organization [facility] Address [address] [place] [address] Care Team Providers Name Role Phone Lilian Persaud DO Primary Care Provider Reason for Visit Reason Comments UPDATE Encounter Details Date Type Department Care Team Description 06/04/2011 [facility]phone [facility] Lilian Persaud DO UPDATE 14[address] [facility] . [address] [place] [address] [place] [address] [phone] (Wo rk) Social History Tobacco Use Types Packs/Day Years Used Date Smoking Tobacco: Never Assessed Sex Assigned at Date Recorded Not on file documented as of this encounter Nursing Notes Judy Pittman RN - 06/04/2011 4:29 PM CST Called pt. Informed of insulin adjustments per Dr Persaud's instructions below. Advised pt to record blood sugar readings on Tuesday, Tuesday and Tuesday - then call first thing on Tuesday with update. Pt agreed. GATION SERVICE TECHNICIAN Lilian Persaud DO - 06/04/2011 4:16 PM CST Have patient increase Lantus to 40 units (was 35 units) subcutaneous every HS. Also, increase Novolog to 10 units (was 9 units) TID with meals. Call Tuesday 2/13 am with BS readings. Further increase to be determined at that time. GATION SERVICE TECHNICIAN Judy Pittman, JOSETTE - 06/04/2011 4:03 PM [...] if insulin needs to be adjusted again. GATION SERVICE TECHNICIAN Gladys Granger - 06/04/2011 3:42 PM CST Non -Symptom Message from Front Line Primary Care Provider: Lilian Persaud DO Message: Pt is calling to leave his Blood Sugar levels from the last 3 days: Friday 06/02: AM-268 PM-315 Night- 06/03: AM -295 PM- 320 Night- 06/04: AM- 291 GATION SERVICE TECHNICIAN documented in this encounter Plan of Treatment Not on filedocumented as of this encounter Visit Diagnoses Diagnosis Type II or unspecified type diabetes jasen litus without mention of complication, uncontrolled - Primary documented in this encounter Care Teams Golf Range Attendant Relationship Specialty Start Date End Date Lilian Persaud DO PCP - General 12/23/10 05/16/12 [address]15 [place] [address] documented as of this encounter
--- OUTSIDE RECORDS SUMMARY | 2022-03-14 18:51 | XMS_ITS | Encounter Summary ---
:1970 Author Organization [facility] Address [address] [place] [address] Care Team Providers Name Role Phone Rolando Lopez DO Primary Care Provider Reason for Visit Reason Comments Refill Encounter Details Date Type Department Care Team Description 03/11/2011 Refill [facility] Rolando Lopez DO [facility]ill [facility] [facility] [address] [facility] [place] [address] [place] [address] [phone] (Wo rk) Social History Tobacco Use Types [...] filedocumented in this encounter Care Teams Production Line Manager Relationship Specialty Start Date End Date Rolando Lopez DO PCP - General 12/23/10 05/16/12 [address] [place] [address] documented as of this encounter
--- OUTSIDE RECORDS SUMMARY | 2022-03-14 18:51 | XMS_ITS | Encounter Summary ---
:1970 Author Organization [employer] Address [address], [place] [address] Care Team Providers Name Role Phone Rolando Lopez DO Primary Care Provider Encounter Details Date Type Department Care Team Description 04/29/2011 - [facility] 2S-Tanesha Lennon MD [address] [facility] [address] [place] [address] Other disorders of lipoid metabolism; 05/01/2011 Encounter ICU Geena Diaz MD [address] [place] [address] DM w/o complication type II, uncontrolle d; [address] Hypertriglyce ridemia; [place] DM (diabetes mellitus) type II uncontrolled with renal manifestation; [place], [place] DM renal m anif type II, uncontrolled; [address] [address] athrs[address]-uns vessel; [phone] Laboratory exam ination, unspecified; AMI NOS, unspec ified; Pure hyperglyce ridemia Social History Tobacco Use Types Packs/Day Years Used Date Smoking Tobacco: Never Assessed Sex Assigned at Date Recorded Not on file documented as of this encounter Last Filed Vital Signs Vital Sign Reading Time Taken Comments Blood Pressure 117/87 05/01/2011 8:00 AM ENDLESS TRACK VEHICLE SUPERVISOR Pulse 82 05/01/2011 8:00 AM ENDLESS TRACK VEHICLE SUPERVISOR Temperature 36.6 ??C (97.9 ??F) 05/01/2011 8:00 AM ENDLESS TRACK VEHICLE SUPERVISOR Respiratory Rate 16 05/01/2011 8:00 AM ENDLESS TRACK VEHICLE SUPERVISOR Oxygen Saturation 98% 05/01/2011 8:00 AM ENDLESS TRACK VEHICLE SUPERVISOR Inhaled Oxygen Concentration - - Weight 100.3 kg (221 lb 3.2 oz) 04/29/2011 8:03 PM ENDLESS TRACK VEHICLE SUPERVISOR Height - - Body Mass Index 32.2 01/22/2011 11:08 AM CDT documented in this encounter Discharge Summaries Tanesha Greene MD - 05/01/2011 3:21 PM CST Discharge Summaries signed by Tanesha Greene MD at 05/01/111818 Author: Tanesha Greene MD Service: (none) Author Type: Physician Filed: 05/01/111818 Note Time: 05/01/11 152 Status: Signed Agricultural Appraiser: Tanesha Greene MD (Physician) NAME: SHARLENE KRISHNAMURTHY MR#: [id number] CSN: [id number] AUTHENTICATING CLINICIAN: Tanesha Greene MD CONFIRM #: [id number] LOC: 1 HOSPITAL DISCHARGE SUMMARY DATE OF [...] inferior Q-waves. The patient was hospitalized at [place] in November 2009. CT angiogram at that time demonstrated no flow-limiting disease in the right coronary. His exercise nuclear stress test was normal. 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 PAST MEDICAL HISTORY: As noted earlier, hypertension, [...] 2 g daily, Risperdal 4 mg daily. SANTIAGO:BREANNA C: CONFIRM #: [id number] ESS TRACK VEHICLE SUPERVISOR documented in this encounter Medications at Time [...] type diabetes mellitus with renal manifestations, uncontrolled(250.42) ([facility]), Type II or unspecified type diabetes mellitus without mention of complication, uncontrolled omega-3 fatty acids Take 2 g by mouth daily 100 capsule 3 06/10/19 (FISH OIL) 1000 MG (every 24 hours). 1 12 capsuleIndications: Indications: Hypertriglyceridemia HYPERTRIGLYCERIDEMIA ([facility]) divalproex (DEPAKOTE) Take 2,000 mg by [...] to home today. He prefers follow-up in [place] and our schedulers will call him on Tuesday to arrange PA visit in 7- 10 days and Security Systems Integrator visitin 4-6 weeks. Patient discussed with Dr. [...] Blood Glucose Test 299 (mg/dL) Assessment/Plan: Acute AR Ischemic CM EF 41% RCA stent Uncontrolled [...] Safe transfer to: /. Safe transfer from: [facility]. 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 A: Pt placed wallet in valuables envelope and security took it to the vault. R: Pt verbalizes relief that valuables are safe. Will pickle cutter upon discharge, pick-up slip placed inchart. Abbie [...] are both issues. Favor bare metal stent. --[facility] Estevan Taylor MD - 04/30/2011 10:19 AM CST Consults signed by Estevan Taylor MD at 05/01/1135 Author: Estevan Taylor MD Service: (none) Author Type: Physician Filed: 05/01/11634 Note Time: 04/30/11 1019 Status: Signed Agricultural Appraiser: Estevan Taylor MD (Physician) NAME: SHARLENE KRISHNAMURTHY MR#: [id number] CSN: [id number] AUTHENTICATING CLINICIAN: Estevan Taylor MD CONFIRM #: [id number] LOC: 1 HOSPITAL CONSULTATION DATE OF CONSULTATION: [...] and on previously. He was hospitalized at [place] in November 2009 and at that point the CT angiogram showed non-flow- limiting disease in the right coronary, and he had a normal exercise nuclear scan. 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 He has been walking several [...] NEUROLOGIC: Cranial nerves normal. His electrocardiogram from [place] shows sinus rhythm, Q-waves in inferior leads, [...] would be favored. CC: ROLANDO LOPEZ, DO [address] [facility] [place] [address] [facility]:MEDQ C: CONFIRM #: [id number] ESS TRACK VEHICLE SUPERVISOR documented in this encounter OR Notes H&P - Geena Diaz MD - 04/29/2011 9:14 PM CST H&P signed by Geena Diaz MD at 04/29/112256 Author: Geena Diaz MD Service: (none) Author Type: Physician Filed: 04/29/112256 Note Time: 04/29/112113 Status: Signed Agricultural Appraiser: Geena Diaz MD (Physician) NAME: SHARLENE KRISHNAMURTHY MR#: [id number] CSN: [id number] AUTHENTICATING CLINICIAN: Geena Diaz MD CONFIRM #: [id number] LOC: 1 HOSPITAL HISTORY AND PHYSICAL DATE [...] was started on heparin infusion at the [facility] and given metoprolol 12.5 mg orally. Cardiology at [facility] was contacted and they recommended he be [...] 1000 mg XR product at bedtime. 8. Billings-3 fatty acid fish oil 2 grams daily. 9. Risperidone 4 mg daily. 10.Patient also running heparin infusion for anticoagulation on arrival. ADVERSE DRUG REACTIONS: Haldol, thiothixene, aripiprazole, trifluoperazine and ziprasidone. FAMILY HISTORY.: Dad had an AR at age 35 and is currently doing well at age 69. SOCIAL HISTORY: Patient does not use alcohol. He smokes about three-quarters pack of cigarettes daily. 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 He would like to return to work. [...] complete physical exam is unremarkable. DATA: From [facility] today: Sodium 130 which is stable for this patient, with potassium 4, creatinine 0.71. From April 28, 2011: Hemoglobin 14 with white count 8000 and INR 1.0. [facility] labs from today: Platelets 209, INR 1.1, creatinine 0.8, PTT 30. Chest x-ray from [facility] reviewed by their Radiologist as showing [...] DISCUSSION: Patient's blood sugars were monitored at [facility]. PLAN: Patient is n.p.o. now in [...] in the a.m. SME:MEDQ C: CONFIRM #: [id number] ESS TRACK VEHICLE SUPERVISOR documented in this encounter Miscellaneous Notes Medication History - Elvis Ellington MD - 05/01/2011 10:20 AM CST INPATIENT MEDS [...] Given Kacie Matias RN Subcutaneous - 05/01/11 0827 - - 04/30/111706 20 Units Given Marlin [...] Given Kacie Matias RN Subcutaneous - 05/01/11 0823 - - 01/06/12 2200 - Not Given [...] mg Given Radha Ryan RN Oral - 04/30/11841 - - metFORMIN (GLUCOPHAGE-XR) XR 24 hour tablet 1,000 mg Start Date:04/29/11, End Date:04/29/11, Frequency:AT BEDTIME Taken Dose Action User Route Site Recorded Comment Reason 04/29/112199 1,000 mg Not Given Abbie Mukherjee RN Oral - 04/29/112130 angio tomorrow Contraindicated omega-3 fatty acids-fish oil 340-1,000 mg capsule 2 capsule Start Date:04/30/11, End Date:05/01/11, Frequency:DAILY Taken Dose Action User Route Site Recorded Comment Reason 05/01/11819 2 capsule Given Kacie Matias RN Oral - 05/01/11819 - - 04/30/11842 2 capsule Given Radha Ryan RN Oral - 04/30/11842 - - risperiDONE (RisperDAL) tablet 4 mg Start Date:04/30/11, End Date:05/01/11, Frequency:DAILY Taken Dose Action User Route Site Recorded Comment Reason 05/01/11 0818 4 mg Given Kacie Matias RN Oral - 05/01/1118 - - 04/30/11 0842 4 mg Given Radha Ryan RN Oral - 04/30/1142 - - metoprolol tartrate (LOPRESSOR) tablet 12.5 mg Start Date:04/29/11, End Date:04/30/11, Frequency:2 TIMES DAILY Taken Dose Action User Route Site Recorded Comment Reason 04/30/11 0843 12.5 mg Given Radha Ryan RN Oral - 04/30/11842 - - 04/29/112203 12.5 mg Given Abbie [...] Comment Reason 04/30/11451 1,200 Units/hr Rate/Dose Change Luis Barr, JOSETTE Hatfield, JOSETTE Intravenous - 04/30/11453 - - 04/29/112026 1,000 [...] Date:04/30/11, End Date:-, Frequency:- *No Administrations Recorded ESS TRACK VEHICLE SUPERVISOR documented in this encounter Plan of Treatment Not on filedocumented as of this encounter Procedures Procedure Name Priority Date/Time Associated Comments Diagnosis BEDSIDE GLUCOSE Routine 05/01/2011 8:05 Results f or this MONITOR POCT AM ENDLESS TRACK VEHICLE SUPERVISOR procedure are i n the results section. PLATELETS Routine 05/01/2011 5:58 Results for this AM ENDLESS TRACK VEHICLE SUPERVISOR procedure are i n the results section. TROPONIN I Specified Time 05/01/2011 4:49 Results fo r this AM ENDLESS TRACK VEHICLE SUPERVISOR procedure are i n the results section. CK, TOTAL Specified Time 05/01/2011 4:49 Results fo r this AM ENDLESS TRACK VEHICLE SUPERVISOR procedure are i n the results section. APTT (ACTIVATED Specified Time 05/01/2011 4:48 Results for this PARTIAL AM ENDLESS TRACK VEHICLE SUPERVISOR procedure are i n THROMBOPLASTIN TIME the resu lts section. BEDSIDE GLUCOSE Routine 04/30/2011 9:33 Results f or this MONITOR POCT PM ENDLESS TRACK VEHICLE SUPERVISOR procedure are i n the results section. LABS CARD TROPI STAT 04/30/2011 7:53 Resu lts for this 6 HRS PM ENDLESS TRACK VEHICLE SUPERVISOR procedure are i n the results section. CARD TROPI 90 STAT 04/30/2011 5:30 Result s for this MIN PM ENDLESS TRACK VEHICLE SUPERVISOR procedure are i n the results section. ECG 12 LEAD INPATIENT STAT 04/30/2011 5:07 Res ults for this PM ENDLESS TRACK VEHICLE SUPERVISOR procedure are i n the results section. BEDSIDE GLUCOSE Routine 04/30/2011 4:35 Results f or this MONITOR POCT PM ENDLESS TRACK VEHICLE SUPERVISOR procedure are i n the results section. GLUCOSE Routine 04/30/2011 1:50 Results for this PM ENDLESS TRACK VEHICLE SUPERVISOR procedure are i n the results section. CARDIAC PROFILE Routine 04/30/2011 1:50 Results f or this PM ENDLESS TRACK VEHICLE SUPERVISOR procedure are i n the results section. CREATININE / GFR Routine 04/30/2011 1:50 Results for this PM ENDLESS TRACK VEHICLE SUPERVISOR procedure are i n the results section. COMPLETE BLOOD Routine 04/30/2011 1:50 Results fo r this COUNT-W/DIFF PM ENDLESS TRACK VEHICLE SUPERVISOR procedure are i n the results section. DIFFERENTIAL Routine 04/30/2011 1:50 Results for this PM ENDLESS TRACK VEHICLE SUPERVISOR procedure are i n the results section. ELECTROLYTE PANEL Routine 04/30/2011 1:50 Results for this PM ENDLESS TRACK VEHICLE SUPERVISOR procedure are i n the results section. MAGNESIUM Routine 04/30/2011 1:50 Results for this PM ENDLESS TRACK VEHICLE SUPERVISOR procedure are i n the results section. CK, TOTAL Routine 04/30/2011 1:50 Results for this PM ENDLESS TRACK VEHICLE SUPERVISOR procedure are i n the results section. BUN Routine 04/30/2011 1:50 Results for this PM ENDLESS TRACK VEHICLE SUPERVISOR procedure are i n the results section. INR/PROTIME Routine 04/30/2011 1:50 Results for this PM ENDLESS TRACK VEHICLE SUPERVISOR procedure are i n the results section. CARDIAC CATH Routine 04/30/2011 1:06 Results for this PROCEDURE PM ENDLESS TRACK VEHICLE SUPERVISOR procedure are i n the results section. BEDSIDE GLUCOSE Routine 04/30/2011 12:27 Results for this MONITOR POCT PM ENDLESS TRACK VEHICLE SUPERVISOR procedure are i n the results section. APTT (ACTIVATED Specified Time 04/30/2011 10:52 Result s for this PARTIAL AM ENDLESS TRACK VEHICLE SUPERVISOR procedure are i n THROMBOPLASTIN TIME the resu lts section. BEDSIDE GLUCOSE Routine 04/30/2011 8:49 Results f or this MONITOR POCT AM ENDLESS TRACK VEHICLE SUPERVISOR procedure are i n the results section. APTT (ACTIVATED Specified Time 04/30/2011 3:29 Results for this PARTIAL AM ENDLESS TRACK VEHICLE SUPERVISOR procedure are i n THROMBOPLASTIN TIME the resu lts section. SODIUM Specified Time 04/30/2011 3:29 Results fo r this AM ENDLESS TRACK VEHICLE SUPERVISOR procedure are i n the results section. BEDSIDE GLUCOSE Routine 04/29/2011 9:22 Results f or this MONITOR POCT PM ENDLESS TRACK VEHICLE SUPERVISOR procedure are i n the results section. APTT (ACTIVATED STAT 04/29/2011 8:14 Results f or this PARTIAL PM ENDLESS TRACK VEHICLE SUPERVISOR procedure are i n THROMBOPLASTIN TIME the resu lts section. PLATELETS STAT 04/29/2011 8:14 Results for this PM ENDLESS TRACK VEHICLE SUPERVISOR procedure are i n the results section. INR/PROTIME STAT 04/29/2011 8:14 Results for this PM ENDLESS TRACK VEHICLE SUPERVISOR procedure are i n the results section. CREATININE / GFR STAT 04/29/2011 8:13 Results for this PM ENDLESS TRACK VEHICLE SUPERVISOR procedure are i n the results section. MRSA CULTURE Routine 04/29/2011 8:05 Results for this PM ENDLESS TRACK VEHICLE SUPERVISOR procedure are i n the results section. ECG 12 LEAD INPATIENT STAT 04/29/2011 7:58 Res ults for this PM ENDLESS TRACK VEHICLE SUPERVISOR procedure are i n the results section. documented in this encounter Results BEDSIDE GLUCOSE MONITOR (05/01/2011 8:05 AM ENDLESS TRACK VEHICLE SUPERVISOR) athologist Signature Bedside Blood 299 mg/dL HP CONVERSION Glucose Test Specimen Anatomical Collection Method Collection Time Receive d Time (Source) Location / / Volume Laterality 05/01/2011 8:05 AM 2 8:25 ENDLESS TRACK VEHICLE SUPERVISOR AM ENDLESS TRACK VEHICLE SUPERVISOR Tanesha Greene MD LAB_1 Performing Organization Address City/State/[facility] Code Phon e Number HP CONVERSION Platelets (05/01/2011 5:58 AM ENDLESS TRACK VEHICLE SUPERVISOR) athologist [facility] Platelet Count 171 140 - 450 HP CONVERSION k/cmm Specimen Anatomical Collection Method Collection Time Receive d Time (Source) Location / / Volume Laterality 05/01/2011 5:58 AM 2 6:00 ENDLESS TRACK VEHICLE SUPERVISOR AM ENDLESS TRACK VEHICLE SUPERVISOR Celso Cronin MD LAB_1 Performing Organization Address City/[facility] Code Phon e Number HP CONVERSION Troponin I (05/01/2011 4:49 AM ENDLESS TRACK VEHICLE SUPERVISOR) athologist Signature TROPONIN I <0.10 0.00 - 0.30 HP CONVERSION ng/mL Specimen Anatomical Collection Method Collection Time Receive d Time (Source) Location / / Volume Laterality BLOOD: 05/01/2011 4:49 AM 2 4:51 ENDLESS TRACK VEHICLE SUPERVISOR AM ENDLESS TRACK VEHICLE SUPERVISOR Demario Mcintyre MD LAB_1 Performing Organization Address City/[facility] Code Phon e Number HP CONVERSION CK, Total (05/01/2011 4:49 AM ENDLESS TRACK VEHICLE SUPERVISOR) athologist Signature Creatine Kinase 63 0 - 225 HP CONVERSION U/L Specimen Anatomical Collection Method Collection Time Receive d Time (Source) Location / / Volume Laterality BLOOD: 05/01/2011 4:49 AM 2 4:51 ENDLESS TRACK VEHICLE SUPERVISOR AM ENDLESS TRACK VEHICLE SUPERVISOR Demario Mcintyre MD LAB_1 Performing Organization Address [facility] Phon e Number HP CONVERSION APTT (Activated Partial Thromboplastin Time) (05/01/2011 4:48 AM ENDLESS TRACK VEHICLE SUPERVISOR) [facility] Method Time Signature Partial 27.3 25.0 - HP CONVERSION Thromboplastin Time 38.0 sec Specimen Anatomical Collection Method Collection Time Receive d Time (Source) Location / / Volume Laterality 05/01/2011 4:48 AM 2 4:51 ENDLESS TRACK VEHICLE SUPERVISOR AM ENDLESS TRACK VEHICLE SUPERVISOR Geena Diaz MD LAB_1 Performing Organization Address [facility]/ZIP Code Phon e Number HP CONVERSION BEDSIDE GLUCOSE MONITOR (04/30/2011 9:33 PM ENDLESS TRACK VEHICLE SUPERVISOR) athologist Signature Bedside Blood 353 mg/dL HP CONVERSION Glucose Test Specimen Anatomical Collection Method Collection Time Receive d Time (Source) Location / / Volume Laterality 04/30/2011 9:33 PM 2 9:40 ENDLESS TRACK VEHICLE SUPERVISOR PM ENDLESS TRACK VEHICLE SUPERVISOR Celso Cronin MD LAB_1 Performing Organization Address [facility] Code Phon e Number HP CONVERSION LABS CARD PROF TROPI 6 HRS (04/30/2011 7:53 PM ENDLESS TRACK VEHICLE SUPERVISOR) athologist Signature Tropi At 6 Hrs <0.10 0.00 - HP CONVERSION 0.30 ng/mL Specimen Anatomical Collection Method Collection Time Receive d Time (Source) Location / / Volume Laterality 04/30/2011 7:53 PM 2 8:02 ENDLESS TRACK VEHICLE SUPERVISOR PM ENDLESS TRACK VEHICLE SUPERVISOR Narrative HP CONVERSION - 04/30/2011 8:33 PM ENDLESS TRACK VEHICLE SUPERVISOR .Critical _TROPI_ result of _0.48_calle d to and read back by_HANNAH FROM CAT.LAB_, 04/30/2011,16:25, by [email or web address] called to and read back by hayder ??rn 3e, 04/30/2011,14:55, by MONICA Celso Cronin MD LAB_1 Performing Organization Address City/[facility] Code Phon e Number HP CONVERSION CARD PROF TROPI 90 MIN (04/30/2011 5:30 PM ENDLESS TRACK VEHICLE SUPERVISOR) P athologist Signature Tropi at 90 Min <0.10 0.00 - HP CONVERSION 0.30 ng/mL Specimen Anatomical Collection Method Collection Time Receive d Time (Source) Location / / Volume Laterality 04/30/2011 5:30 PM 2 5:34 ENDLESS TRACK VEHICLE SUPERVISOR PM ENDLESS TRACK VEHICLE SUPERVISOR Narrative HP CONVERSION - 04/30/2011 6:05 PM ENDLESS TRACK VEHICLE SUPERVISOR .Critical _TROPI_ result of _0.48_calle d to and read back by_ERIC FROM CAT.[facility]_, 04/30/2011,16:25, by [email or web address] called to and read back by hayder ??rn 3e, 04/30/2011,14:55, by MONICA Celso Cronin MD LAB_1 Performing Organization Address City/State/ZIP Code Phon e Number HP CONVERSION ECG 12 Lead Inpatient (04/30/2011 5:07 PM ENDLESS TRACK VEHICLE SUPERVISOR) P athologist Signature Ventricular Rate 76 BPM MUSE GHP Atrial Rate 76 BPM MUSE GHP P-R Interval 140 ms MUSE [facility] QRS Duration 98 ms MUSE GHP QT 402 ms MUSE GHP QTc 452 ms MUSE [facility] P Reading 35 degrees MUSE G[facility] R Reading 32 degrees MUSE GHP T Reading -28 degrees MUSE GHP Specimen (Source) Anatomical Collection Method Collection Time Re ceived Time Location / / Volume Laterality 04/30/2011 5:07 PM ENDLESS TRACK VEHICLE SUPERVISOR Narrative MUSE GHP - 07/31/2019 4:22 PM [...] MD PN ECG ORDERABLES Performing Organization Address City/[facility]/ZIP Code Phon e Number MUSE GHP [address] [place] [address] BEDSIDE GLUCOSE MONITOR (04/30/2011 4:35 PM ENDLESS TRACK VEHICLE SUPERVISOR) athologist Signature Bedside Blood 149 mg/dL HP CONVERSION Glucose Test Specimen Anatomical Collection Method Collection Time Receive d Time (Source) Location / / Volume Laterality 04/30/2011 4:35 PM 2 4:45 ENDLESS TRACK VEHICLE SUPERVISOR PM ENDLESS TRACK VEHICLE SUPERVISOR Celso Cronin MD LAB_1 Performing Organization Address City/State/ZIP Code Phon e Number HP CONVERSION INR/Protime (04/30/2011 1:50 PM ENDLESS TRACK VEHICLE SUPERVISOR) athologist Signature Prothrombin Time 13.5 12.6 - [...] valves in the aortic position , acute AR, valvular heart disease and atrial fibril lation. Mechanical prosthetic valves, (high risk ). ? INR 2.5-3.5 Prevention of recurrent myocardial infar ct. These recommended ranges serve as guidel mike. Adjustment outside these ranges may be c linically indicated. Specimen Anatomical Collection Method Collection Time Receive d Time (Source) Location / / Volume Laterality 04/30/2011 1:50 PM 2 1:59 ENDLESS TRACK VEHICLE SUPERVISOR PM ENDLESS TRACK VEHICLE SUPERVISOR Celso Cronin MD LAB_1 Performing Organization Address City/[facility] Code Phon e Number HP CONVERSION (ABNORMAL) Differential (04/30/2011 1:50 PM ENDLESS TRACK VEHICLE SUPERVISOR) Component Value Ref Test Analysis Performed At [...] Volume Laterality 04/30/2011 1:50 PM 2 1:59 ENDLESS TRACK VEHICLE SUPERVISOR PM ENDLESS TRACK VEHICLE SUPERVISOR Celso Cronin MD LAB_1 Performing Organization Address [facility] Code Phon e Number HP CONVERSION (ABNORMAL) CARDIAC PROFILE (04/30/2011 1:50 PM ENDLESS TRACK VEHICLE SUPERVISOR) [facility] Method Time Signature Tropi Baseline 0.48 (CH) 0.00 - HP CONVERSION 0.30 ng/mL Specimen Anatomical Collection Method Collection Time Receive d Time (Source) Location / / Volume Laterality 04/30/2011 1:50 PM 2 1:59 ENDLESS TRACK VEHICLE SUPERVISOR PM ENDLESS TRACK VEHICLE SUPERVISOR Narrative HP CONVERSION - 04/30/2011 4:09 PM ENDLESS TRACK VEHICLE SUPERVISOR .Critical _TROPI_ result of _0.48_calle d to and read back by_ERREY FROM CAT.[facility]_, 04/30/2011,16:25, by [email or web address] called to and read back by hayder ??rn 3e, 04/30/2011,14:55, by MONICA Celso Cronin MD LAB_1 Performing Organization Address City/[facility] Code Phon e Number HP CONVERSION (ABNORMAL) Hemogram/Plts/Diff (04/30/2011 1:50 PM ENDLESS TRACK VEHICLE SUPERVISOR) [facility] Method Time Signature White Blood [...] Volume Laterality 04/30/2011 1:50 PM 2 1:59 ENDLESS TRACK VEHICLE SUPERVISOR PM ENDLESS TRACK VEHICLE SUPERVISOR Narrative HP CONVERSION - 04/30/2011 2:40 PM ENDLESS TRACK VEHICLE SUPERVISOR .plt 51 called to and read back by hayder ??rn 3e, 04/30/2011,14:55, by STEDA Celso Cronin MD LAB_1 Performing Organization Address [facility] Phon e Number HP CONVERSION Electrolyte Panel (04/30/2011 1:50 PM ENDLESS TRACK VEHICLE SUPERVISOR) athologist Signature Sodium 141 137 - 147 HP CONVERSION mEq/L Potassium 3.6 3.5 - 5.2 HP CONVERSION mEq/L Chloride 108 98 - 110 HP CONVERSION mEq/L Bicarbonate 26 23 - 33 HP CONVERSION mmol/L Specimen Anatomical Collection Method Collection Time Receive d Time (Source) Location / / Volume Laterality 04/30/2011 1:50 PM 2 1:59 ENDLESS TRACK VEHICLE SUPERVISOR PM ENDLESS TRACK VEHICLE SUPERVISOR Celso Cronin MD LAB_1 Performing Organization Address City/State/ZIP Code Phon e Number HP CONVERSION Magnesium (04/30/2011 1:50 PM ENDLESS TRACK VEHICLE SUPERVISOR) athologist Signature Magnesium 2.2 1.5 - 2.4 HP CONVERSION mg/dL Specimen Anatomical Collection Method Collection Time Receive d Time (Source) Location / / Volume Laterality 04/30/2011 1:50 PM 2 1:59 ENDLESS TRACK VEHICLE SUPERVISOR PM ENDLESS TRACK VEHICLE SUPERVISOR Celso Cronin MD LAB_1 Performing Organization Address City/[facility]/ZIP Code Phon e Number HP CONVERSION (ABNORMAL) GLUCOSE (04/30/2011 1:50 PM ENDLESS TRACK VEHICLE SUPERVISOR) athologist Signature Lab Glucose 211 (H) 60 - 100 HP CONVERSION mg/dL Specimen Anatomical Collection Method Collection Time Receive d Time (Source) Location / / Volume Laterality 04/30/2011 1:50 PM 2 1:59 ENDLESS TRACK VEHICLE SUPERVISOR PM ENDLESS TRACK VEHICLE SUPERVISOR Celso Cronin MD LAB_1 Performing Organization Address City/[facility] Code Phon e Number HP CONVERSION Creatinine / GFR (04/30/2011 1:50 PM ENDLESS TRACK VEHICLE SUPERVISOR) athologist Signature Creatinine 0.8 0.4 - 1.3 [...] Volume Laterality 04/30/2011 1:50 PM 2 1:59 ENDLESS TRACK VEHICLE SUPERVISOR PM ENDLESS TRACK VEHICLE SUPERVISOR Celso Cronin MD LAB_1 Performing Organization Address [facility]/ZIP Code Phon e Number HP CONVERSION CK, Total (04/30/2011 1:50 PM ENDLESS TRACK VEHICLE SUPERVISOR) athologist Signature Creatine Kinase 108 0 - 225 HP CONVERSION U/L Specimen Anatomical Collection Method Collection Time Receive d Time (Source) Location / / Volume Laterality 04/30/2011 1:50 PM 2 1:59 ENDLESS TRACK VEHICLE SUPERVISOR PM ENDLESS TRACK VEHICLE SUPERVISOR Celso Cronin MD LAB_1 Performing Organization Address City/[facility] Code Phon e Number HP CONVERSION BUN (04/30/2011 1:50 PM ENDLESS TRACK VEHICLE SUPERVISOR) athologist Signature Blood Urea 17 5 - 26 HP CONVERSION Nitrogen mg/dL Specimen Anatomical Collection Method Collection Time Receive d Time (Source) Location / / Volume Laterality 04/30/2011 1:50 PM 2 1:59 ENDLESS TRACK VEHICLE SUPERVISOR PM ENDLESS TRACK VEHICLE SUPERVISOR Celso Cronin MD LAB_1 Performing Organization Address [facility] Phon e Number HP CONVERSION Cardiac Cath Procedure (04/30/2011 1:06 PM ENDLESS TRACK VEHICLE SUPERVISOR) Specimen (Source) Anatomical Collection Method Collection Time Re ceived Time Location / / Volume Laterality 04/30/2011 1:06 PM ENDLESS TRACK VEHICLE SUPERVISOR Narrative PN CENTRICITY - 04/30/2011 1:06 PM ENDLESS TRACK VEHICLE SUPERVISOR SHARLENE KRISHNAMURTHY ?? [id number] Cardiac Catheterization : 1970 Age: 41 years Gender: Male Study date: 04/30/2011 Test time: 15:27 - 15:59 Fluoro time: 6.6 min PPH Staff: ??Antoinette Olivera RN Diagnostic Security Systems Integrator: ??DEMARIO MCINTYRE MD Senior Clinical Data Manager: ??Brandon Ta Scrub: ??Katie Holder Monitor: ??Zoie Kumar RCVT X-ray Tech: ??Daniela Robles RT Ordering Physician: ??Franck TAYLOR Senior Clinical Data Manager: ??Harmony Newton RNhose inspector and patcherSwatch Maker: ??FLORENCE MCINTYRE MD Referring Physician 1: [...] The patient was brought to the laborer tin can and placed on the table. The planned [...] lesion. Vessel setup was performed. A JR4 [employer] g catheter was used to intubate the vessel. Balloon angioplasty was performed, using a 2.5 x 15 NC [employer] [place] balloon, with 2 inflations and a maximum [...] 17:21:22 PPH Staff: Antoinette Olivera RN Diagnostic Security Systems Integrator: DEMARIO MCINTYRE Senior Clinical Data Manager: Brandon Ta Scrub: Katie Holder Monitor: Zoie Kumar X-ray Tech: Daniela Robles RT Ordering Physician: Franck TAYLOR MD Senior Clinical Data Manager: Harmony Newton RNhose inspector and patcherSwatch Maker: MARGO MCINTYRE MD Referring Physician 1: [...] PN CARDIAC CATH ORDERABLES Performing Organization Address [facility] Phon e Number PN CENTRICITY BEDSIDE GLUCOSE MONITOR (04/30/2011 12:27 PM ENDLESS TRACK VEHICLE SUPERVISOR) athologist Signature Bedside Blood 242 mg/dL HP CONVERSION Glucose Test Specimen Anatomical Collection Method Collection Time Receive d Time (Source) Location / / Volume Laterality 04/30/2011 12:27 04/30/2011 PM ENDLESS TRACK VEHICLE SUPERVISOR 12:45 PM ENDLESS TRACK VEHICLE SUPERVISOR Celso Cronin MD LAB_1 Performing Organization Address [facility] Phon e Number HP CONVERSION APTT (Activated Partial Thromboplastin Time) (04/30/2011 10:52 AM ENDLESS TRACK VEHICLE SUPERVISOR) [facility] Method Time Signature Partial 36.3 25.0 - HP CONVERSION Thromboplastin Time 38.0 sec Specimen Anatomical Collection Method Collection Time Receive d Time (Source) Location / / Volume Laterality 04/30/2011 10:52 04/30/2011 AM ENDLESS TRACK VEHICLE SUPERVISOR 11:07 AM ENDLESS TRACK VEHICLE SUPERVISOR Geena Diaz MD LAB_1 Performing Organization Address [facility] Phon e Number HP CONVERSION BEDSIDE GLUCOSE MONITOR (04/30/2011 8:49 AM ENDLESS TRACK VEHICLE SUPERVISOR) athologist Signature Bedside Blood 274 mg/dL HP CONVERSION Glucose Test Specimen Anatomical Collection Method Collection Time Receive d Time (Source) Location / / Volume Laterality 04/30/2011 8:49 AM 2 9:01 ENDLESS TRACK VEHICLE SUPERVISOR AM ENDLESS TRACK VEHICLE SUPERVISOR Celso Cronin MD LAB_1 Performing Organization Address [facility] Phon e Number HP CONVERSION (ABNORMAL) Sodium (04/30/2011 3:29 AM ENDLESS TRACK VEHICLE SUPERVISOR) athologist Signature Sodium 133 (L) 137 - 147 HP CONVERSION mEq/L Specimen Anatomical Collection Method Collection Time Receive d Time (Source) Location / / Volume Laterality 04/30/2011 3:29 AM 2 3:41 ENDLESS TRACK VEHICLE SUPERVISOR AM ENDLESS TRACK VEHICLE SUPERVISOR Geena Diaz MD LAB_1 Performing Organization Address [facility] Phon e Number HP CONVERSION APTT (Activated Partial Thromboplastin Time) (04/30/2011 3:29 AM ENDLESS TRACK VEHICLE SUPERVISOR) Patholo gist Method Time Signature Partial 32.8 25.0 - HP CONVERSION Thromboplastin Time 38.0 sec Specimen Anatomical Collection Method Collection Time Receive d Time (Source) Location / / Volume Laterality 04/30/2011 3:29 AM 2 3:41 ENDLESS TRACK VEHICLE SUPERVISOR AM ENDLESS TRACK VEHICLE SUPERVISOR Geena Diaz MD LAB_1 Performing Organization Address [facility] Phon e Number HP CONVERSION BEDSIDE GLUCOSE MONITOR (04/29/2011 9:22 PM ENDLESS TRACK VEHICLE SUPERVISOR) P athologist Signature Bedside Blood 294 mg/dL HP CONVERSION Glucose Test Specimen Anatomical Collection Method Collection Time Receive d Time (Source) Location / / Volume Laterality 04/29/2011 9:22 PM 2 9:00 ENDLESS TRACK VEHICLE SUPERVISOR AM ENDLESS TRACK VEHICLE SUPERVISOR Celso Cronin MD LAB_1 Performing Organization Address [facility] Phon e Number HP CONVERSION INR/Protime (04/29/2011 8:14 PM ENDLESS TRACK VEHICLE SUPERVISOR) P athologist Signature Prothrombin Time 13.8 12.6 [...] valves in the aortic position , acute AR, valvular heart disease and atrial fibril lation. Mechanical prosthetic valves, (high risk ). ? INR 2.5-3.5 Prevention of recurrent myocardial infar ct. These recommended ranges serve as guidel mike. Adjustment outside these ranges may be c linically indicated. Specimen Anatomical Collection Method Collection Time Receive d Time (Source) Location / / Volume Laterality 04/29/2011 8:14 PM 2 8:17 ENDLESS TRACK VEHICLE SUPERVISOR PM ENDLESS TRACK VEHICLE SUPERVISOR Fan SLATER_1 Performing Organization Address [facility] Phon e Number HP CONVERSION APTT (Activated Partial Thromboplastin Time) (04/29/2011 8:14 PM ENDLESS TRACK VEHICLE SUPERVISOR) [facility] gist Method Time Signature Partial 33.7 25.0 - HP CONVERSION Thromboplastin Time 38.0 sec Specimen Anatomical Collection Method Collection Time Receive d Time (Source) Location / / Volume Laterality 04/29/2011 8:14 PM 2 8:17 ENDLESS TRACK VEHICLE SUPERVISOR PM ENDLESS TRACK VEHICLE SUPERVISOR Fan SLATER_1 Performing Organization Address [facility] Phon e Number HP CONVERSION Platelets (04/29/2011 8:14 PM ENDLESS TRACK VEHICLE SUPERVISOR) athologist Signature Platelet Count 209 140 - 450 HP CONVERSION k/cmm Specimen Anatomical Collection Method Collection Time Receive d Time (Source) Location / / Volume Laterality 04/29/2011 8:14 PM 2 8:17 ENDLESS TRACK VEHICLE SUPERVISOR PM ENDLESS TRACK VEHICLE SUPERVISOR Fan SLATER_1 Performing Organization Address [facility] Phon e Number HP CONVERSION Creatinine / GFR (04/29/2011 8:13 PM ENDLESS TRACK VEHICLE SUPERVISOR) athologist Signature Creatinine 0.8 0.4 - 1.3 [...] Volume Laterality 04/29/2011 8:13 PM 2 8:17 ENDLESS TRACK VEHICLE SUPERVISOR PM ENDLESS TRACK VEHICLE SUPERVISOR Fan Curry DO LAB_1 Performing Organization Address [facility] Phon e Number HP CONVERSION MRSA Culture (04/29/2011 8:05 PM ENDLESS TRACK VEHICLE SUPERVISOR) Component Value Ref Test Analysis Performed At [facility] gist Range Method Time Signature Culture Mrsa [...] / Volume Laterality Nares: 04/29/2011 8:05 PM ENDLESS TRACK VEHICLE SUPERVISOR Julia Covarrubias MD LAB_1 Performing Organization Address City/State/ZIP Code Phon e Number HP CONVERSION ECG 12 Lead Inpatient (04/29/2011 7:58 PM ENDLESS TRACK VEHICLE SUPERVISOR) P athologist Signature Ventricular Rate 84 BPM MUSE GHP Atrial Rate 84 BPM MUSE GHP P-R Interval 144 ms MUSE GHP QRS Duration 96 ms MUSE GHP QT 366 ms MUSE GHP QTc 432 ms MUSE GHP P Reading 44 degrees MUSE GHP R Reading 41 degrees MUSE GHP T Reading -33 degrees MUSE GHP Specimen (Source) Anatomical Collection Method Collection Time Re ceived Time Location / / Volume Laterality 04/29/2011 7:58 PM ENDLESS TRACK VEHICLE SUPERVISOR Narrative MUSE GHP - 07/31/2019 4:26 PM CDT Sinus rhythm Small inferior Q's Borderline ECG ?? No previous ECGs available Procedure Note Epic, Internal Processing - 08/05/2019Fo rmatting of this note might be different from the original. Sinus rhythm Small inferior Q's Borderline ECG No previous ECGs available Brisa Negrete MD PN ECG ORDERABLES Performing Organization Address City/State/ZIP Code Phon e Number [facility] [place] [address] documented in this encounter Visit Diagnoses Diagnosis [...] vessel, [place] or graft (HRC) Coronary atherosclerosis of unspecified type of vessel, [place] or graft Laboratory examination, unspecified Acute myocardial [...] feet. documented in this encounter Care Teams U.[employer]. Revenue Officer Relationship Specialty Start Date End Date Rolando Lopez DO PCP - General 12/23/10 05/16/12 [address] [place] [id number] documented as of this encounter
--- OUTSIDE RECORDS SUMMARY | 2022-03-14 18:52 | XMS_ITS | Encounter Summary ---
:1970 [facility] Address [address] [place] [address] Care Team Providers Name Role Phone Antonio Jerez MD Primary Care Provider Encounter Details Date Type Department Care Team Description 12/22/2009 PN Conversion Only CONV FAMILIY Alexsander Mock MD [address] [facility] [address] [place] [address] [place] [address] (Wo rk) Social History Tobacco Use Types Packs/Day Years Used Date Smoking Tobacco: Never Assessed Sex Assigned at Date Recorded Not on file documented as of this encounter Plan of Treatment Not on filedocumented as of this encounter Visit Diagnoses Not on filedocumented in this encounter Care Teams Land Economist Relationship Specialty Start Date End Date Antonio Jerez MD PCP - General 07/25/10 12/22/10 [address] [place] [address] documented as of this encounter
--- OUTSIDE RECORDS SUMMARY | 2022-03-14 18:52 | XMS_ITS | Encounter Summary ---
:1970 Author Organization [facility] Address [address] [place] [address] Care Team Providers Name Role Phone Antonio Jerez MD Primary Care Provider Encounter Details Date Type Department Care Team Description 12/11/2010 Lab Visit [facility] Pure hyperglyceridemia; [address] DM w/o complication type II, uncontrolled [place] [address] Social History Tobacco Use Types Packs/Day Years [...] (ABNORMAL) Microalb/Creat Ratio (12/11/2010 3:13 PM CDT) [facility] gist Method Time Signature Microalbumin 17.0 mg/L [...] (ABNORMAL) Electrolyte Panel (12/11/2010 3:09 PM CDT) athologist Signature Sodium 129 (L) 137 - [...] - 12/11/2010 8:30 PM CDT Performed at [facility], [address] [place] [address] Lilian Persaud DO LAB_1 Performing Organization Address City/State/ZIP Code Phon e Number HP CONVERSION (ABNORMAL) GLUCOSE (12/11/2010 3:09 PM CDT) athologist Signature Lab Glucose 397 (H) 60 - 100 HP CONVERSION mg/dL Specimen Anatomical Collection Method Collection Time Receive d Time (Source) Location / / Volume Laterality 12/11/2010 3:09 PM 1 8:13 CDT PM CDT Narrative HP CONVERSION - 12/11/2010 8:30 PM CDT Performed at [facility], [address] [place] [address] Lilian Homa Persaud DO LAB_1 Performing Organization Address [facility] Phon e Number HP CONVERSION Creatinine [...] - 12/11/2010 8:30 PM CDT Performed at [facility], [address] [place] [address] Lilian Homa Cori SAL LAB_1 Performing Organization Address [facility] Phon e Number HP CONVERSION AST (12/11/2010 3:09 PM CDT) [facility] Method Time Signature Aspartate 19 0 - 45 HP CONVERSION Aminotransferase U/L Specimen Anatomical Collection Method Collection Time Receive d Time (Source) Location / / Volume Laterality 12/11/2010 3:09 PM 1 8:13 CDT PM CDT Narrative HP CONVERSION - 12/11/2010 8:30 PM CDT Performed at [facility], [address] [place] [address] Lilian Persaud DO LAB_1 Performing Organization Address [facility] Phon e Number HP CONVERSION ALT (SGPT) (12/11/2010 3:09 PM CDT) [facility] Method Time Signature Alanine 28 4 - 55 HP CONVERSION Aminotransferase U/L Specimen Anatomical Collection Method Collection Time Receive d Time (Source) Location / / Volume Laterality 12/11/2010 3:09 PM 1 8:13 CDT PM CDT Narrative HP CONVERSION - 12/11/2010 8:30 PM CDT Performed at [facility], [address] [place] [address] Lilian Persaud DO LAB_1 Performing Organization Address [facility] Phon e Number HP CONVERSION VENIPUNCTURE (SOBEIDA) (12/11/2010 3:05 PM CDT) athologist Signature Venipuncture Done HP CONVERSION Specimen (Source) Anatomical Collection Method Collection Time Re ceived Time Location / / Volume Laterality 12/11/2010 3:05 PM CDT Narrative HP CONVERSION - 12/11/2010 3:05 PM CDT Performed at [facility], [address] [place] [address] Lilian Persaud DO LAB_1 Performing Organization Address [facility] Phon e Number HP CONVERSION documented in this encounter Visit Diagnoses Diagnosis Pure hyperglyceridemia (HRC) Pure hyperglyceridemia Type II or unspecified type diabetes jasen litus without mention of complication, uncontrolled documented in this encounter Care Teams Aviation Consultant Relationship Specialty Start Date End Date Antonio Jerez MD PCP - General 07/25/10 12/22/[address] [place] [address] documented as of this encounter
--- OUTSIDE RECORDS SUMMARY | 2022-03-14 18:52 | XMS_ITS | Encounter Summary ---
:1970 Author Organization [facility] Address [address] [place] [address] Care Team Providers Name Role Phone Antonio Jerez MD Primary Care Provider Reason for Visit Reason Comments Other Encounter Details Date Type Department Care Team Description 11/26/2010 Telephone [place] [facility] [place] [facility] Mimi Rodrigues RN Other [address] [facility] [place] [address] Social History Tobacco Use Types [...] Foley LPN - 11/26/2010 2:49 PM CDT [facility] [address] Olga Peterson V - 11/26/2010 1:09 PM CDT Please call patient to inform that his sodium is significantly low. Low sodium could caused extreme fatigue. It will be best to be seen today at urgent care or the emergency room for IV fluid hydration Mimi Rodrigues RN - 11/26/2010 12:17 PM CDT [facility] lab calling with critical result. Sodium is 126. Triage forwarding to clinician per distribution list to address. documented in this encounter Plan of Treatment Not on filedocumented as of this encounter Visit Diagnoses Not on filedocumented in this encounter Care Teams Tank Builder Helper Relationship Specialty Start Date End Date Antonio Jerez MD PCP - General 07/25/10 12/22/[address] [place] [address] documented as of this encounter
--- OUTSIDE RECORDS SUMMARY | 2022-03-14 18:52 | XMS_ITS | Encounter Summary ---
:1970 Author Organization [facility] Address [address] [place] [address] Care Team Providers Name Role Phone Michel Daniel MD Primary Care Provider Encounter Details Date Type Department Care Team Description 03/24/2009 Office Visit [facility] Michel Daniel MD [address] [facility] . [address] [place] [address] [place] [address] [phone] (Wo rk) Social History Tobacco Use Types Packs/Day Years Used Date Smoking Tobacco: Never Assessed Sex Assigned at Date Recorded Not on file documented as of this encounter Last Filed Vital Signs Vital Sign Reading Time Taken Comments Blood Pressure 128/76 03/24/2009 1:14 PM WELL DRILL OPERATOR ROTARY DRILL Pulse 88 03/24/2009 1:14 PM WELL DRILL OPERATOR ROTARY DRILL Temperature - - Respiratory Rate - - Oxygen Saturation - - Inhaled Oxygen Concentration - - Weight 99.5 kg (219 lb 4 oz) 03/24/2009 1:14 PM WELL DRILL OPERATOR ROTARY DRILL C: 99.5kg Height - - Body Mass Index 31.46 06/24/2008 12:32 PM WELL DRILL OPERATOR ROTARY DRILL documented in this encounter Progress Notes Michel Daniel MD - 03/24/2009 12:01 AM CST Progress Notes signed by Michel Daniel MD at 03/25/09 0748 Author: Michel Daniel MD Service: (none) Author Type: Physician Filed: 08/15/10 1824 Note Time: 03/24/09 0001 Status: Signed Agronomy Teacher: Michel Daniel MD (Physician) NAME: SHARLENE VARNER MR#: [id number] ACCT: [id number] VISIT: [id number] DICTATING CLINICIAN: MICHEL DANIEL MD CONFIRM #: [id number] LOC: 1202 CLINIC PROGRESS NOTE DATE OF [...] attempt to lose some weight. Recheck p.r.n. AAS:[id number] C: 03/24/09 16:45 CONFIRM #: [id number] DRILL OPERATOR ROTARY DRILL documented in this encounter Plan of Treatment Not on filedocumented as of this encounter Visit Diagnoses Not on filedocumented in this encounter Care Teams Industrial Maintenance Technician Relationship Specialty Start Date End Date Michel Daniel MD PCP - General 07/25/10 12/22/10 [address] [place] [address] documented as of this encounter
--- OUTSIDE RECORDS SUMMARY | 2022-03-14 18:52 | XMS_ITS | Encounter Summary ---
:1970 Author Organization [facility] Address [address] [place] [address] Care Team Providers Name Role Phone Antonio Jerez MD Primary Care Provider Encounter Details Date Type Department Care Team Description 11/29/2009 PN Conversion Only OTHER CONVERSION [address] [place] [address] Social History Tobacco Use Types Packs/Day Years Used Date Smoking Tobacco: Never Assessed Sex Assigned at Date Recorded Not on file documented as of this encounter Plan of Treatment Not on filedocumented as of this encounter Visit Diagnoses Not on filedocumented in this encounter Care Teams Developer Trading Systems Relationship Specialty Start Date End Date Antonio Jerez MD PCP - General 07/25/10 12/22/10 [address] [place] [address] documented as of this encounter
--- OUTSIDE RECORDS SUMMARY | 2022-03-14 18:52 | XMS_ITS | Encounter Summary ---
:1970 Author Organization [facility] Address [address] [place] [address] Care Team Providers Name Role Phone Antonio Jerez MD Primary Care Provider Reason for Visit Reason Comments RESULTS, TEST Encounter Details Date Type Department Care Team Description 11/27/2010 [facility] Lilian Persaud DO RESULTS, TEST [address] [facility] [address] [place] [address] [place] [address] [phone] (Wo rk) Social History Tobacco Use Types [...] on filedocumented in this encounter Care Teams Black Ash Burner Operator Relationship Specialty Start Date End Date Antonio Jerez MD PCP - General 07/25/10 12/22/10 [address] [facility] [place] [address] documented as of this encounter
--- OUTSIDE RECORDS SUMMARY | 2022-03-14 18:52 | XMS_ITS | Encounter Summary ---
:1970 Author Organization [facility] Address [address] [place] [address] Care Team Providers Name Role Phone Antonio Jerez MD Primary Care Provider Encounter Details Date Type Department Care Team Description 10/08/2009 Engineering Programmer Only CONVERSION CONVERSION Ida Woodall MD [address] [place] [address] Social History Tobacco Use Types Packs/Day Years Used Date Smoking Tobacco: Never Assessed Sex Assigned at Date Recorded Not on file documented as of this encounter Progress Notes Erich Woodall MD - 10/08/2009 12:01 AM CDT Progress Notes signed by Erich Woodall MD at 10/08/09 1706 Author: Erich Woodall MD Service: (none) Author Type: Physician Filed: 08/15/10 5343 Note Time: 10/08/09 0001 Status: Signed Bundle Helper: Erich Woodall MD (Physician) HOSPITAL DISCHARGE SUMMARY Patient Name: Timur Krishnamurthy Date of : 1970 Age: 39 y.o. Primary Physician: Antonio Jerez Admission Date: 10/07/2009 Discharge Date: 10/08/2009 He will be discharged from [facility] to home. PRINCIPAL DISCHARGE DIAGNOSIS: chest pain, [...] in this encounter Care Teams Social Media Sr Strategy Manager Relationship Specialty Start Date End Date Antonio Jerez MD PCP - General 07/25/10 12/22/[address] [facility] [place] [address] documented as of this encounter
--- OUTSIDE RECORDS SUMMARY | 2022-03-14 18:52 | XMS_ITS | Encounter Summary ---
:1970 Author Organization [facility] Address [address] [place] [address] Care Team Providers Name Role Phone Antonio Jerez MD Primary Care Provider Encounter Details Date Type Department Care Team Description 12/01/2009 Thermostat Mechanic Only CONVERSION CONVERSION Ida Woodall MD [address] [place] [address] Social History Tobacco Use Types Packs/Day Years [...] 0023 Note Time: 12/01/09 0001 Status: Signed Tableau Architect: Erich Woodall MD (Physician) HOSPITAL DISCHARGE SUMMARY Patient Name: Timur Krishnamurthy Date of : 1970 Age: 39 y.o. Primary Physician: Antonio Jerez Admission Date: 11/29/2009 Discharge Date: 11/30/2009 He will be discharged from [facility] to home. PRINCIPAL DISCHARGE DIAGNOSIS: NONCARDIAC chest [...] for his age and a focal moderate [id number] lesion of his RCA. He was discharged [...] on filedocumented in this encounter Care Teams Tech Ed/Woodshop Teacher Relationship Specialty Start Date End Date Antonio Jerez MD PCP - General 07/25/10 12/22/10 [address] [facility] [place] [id number] documented as of this encounter
--- OUTSIDE RECORDS SUMMARY | 2022-03-14 18:52 | XMS_ITS | Encounter Summary ---
:1970 Author Organization [facility] Address [address] [place] [address] Care Team Providers Name Role Phone Antonio Jerez MD Primary Care Provider Encounter Details Date Type Department Care Team Description 12/01/2009 PN Conversion Only MUSLIM CONVERSION Richie Woodall MD [address] [place] [address] Social History Tobacco Use Types Packs/Day Years Used Date Smoking Tobacco: Never Assessed Sex Assigned at Date Recorded Not on file documented as of this encounter Plan of Treatment Not on filedocumented as of this encounter Visit Diagnoses Not on filedocumented in this encounter Care Teams Transportation Aid Relationship Specialty Start Date End Date Antonio Jerez MD PCP - General 07/25/10 12/22/10 [address] [place], [place] [address] documented as of this encounter
--- OUTSIDE RECORDS SUMMARY | 2022-03-14 18:52 | XMS_ITS | Encounter Summary ---
:1970 Author Organization [facility] Address [address], [place] [address] Care Team Providers Name Role Phone Antonio Jerez MD Primary Care Provider Reason for Visit Reason Comments Lucy Burciaga Encounter Details Date Type Department Care Team Description 11/25/2010 Office Visit [facility] Lilian Persaud Stye; Medicine DO Dermatophytosis of the body; [address] [address] [place] C T DM w/o complication type II, uncontrolle d; [address] [place], [place] Other disorders [place] [address] [phone] Social History Tobacco Use Types Packs/Day Years [...] a year ago. He was diagnosed at [facility] during an ER hospital stay. [...] metabolism documented in this encounter Care Teams Fan Balancer Relationship Specialty Start Date End Date Antonio Jerez MD PCP - General 07/25/10 12/22/[address] [place], [place] [address], [place] [address] documented as of this encounter
--- OUTSIDE RECORDS SUMMARY | 2022-03-14 18:52 | XMS_ITS | Encounter Summary ---
:1970 Author Organization [facility] Address [address], [place] [address] Care Team Providers Name Role Phone Lilian Persaud DO Primary Care Provider Encounter Details Date Type Department Care Team Description 01/22/2011 Notes/Orders [facility] Lilian Persaud, Pure hyperglyceridemia; Medicine DO DM w/o complication type II, uncontrolle d [address] [facility] . [address] [place] [address] [place], [place] [phone] [address] Social History Tobacco Use Types Packs/Day Years Used Date Smoking Tobacco: Never Assessed Sex Assigned at Date Recorded Not on file documented as of this encounter Plan of Treatment Not on filedocumented as of this encounter Visit Diagnoses Diagnosis Pure hyperglyceridemia (HRC) Pure hyperglyceridemia Type II or unspecified type diabetes jasen litus without mention of complication, uncontrolled documented in this encounter Care Teams Media Developer Relationship Specialty Start Date End Date Lilian Persaud DO PCP - General 12/23/10 05/16/12 14[address] [facility] [place] [address] documented as of this encounter
--- OUTSIDE RECORDS SUMMARY | 2022-03-14 18:52 | XMS_ITS | Encounter Summary ---
:1970 Author Organization [facility] Address [address] [place] [address] Care Team Providers Name Role Phone Lilian Persaud DO Primary Care Provider Reason for Visit Reason Comments Medication Questions Encounter Details Date Type Department Care Team Description 01/08/2011 Refill [facility] Lilian Persaud DO Medication Questions [address] [facility] [address] [facility] [place] [address] [place] [address] [phone] (Wo rk) Social History Tobacco Use Types [...] uncontrolled documented in this encounter Care Teams Lube Worker Relationship Specialty Start Date End Date Lilian Persaud DO PCP - General 12/23/10 05/16/12 [address] [place] [address] documented as of this encounter
--- OUTSIDE RECORDS SUMMARY | 2022-03-14 18:52 | XMS_ITS | Encounter Summary ---
:1970 Author Organization [employer] Address [address] [place] [address] Care Team Providers Name Role Phone Antonio Jerez MD Primary Care Provider Reason for Visit Reason Comments Test Request Encounter Details Date Type Department Care Team Description 12/18/2010 [facility]ian [facility]aud, Test Request 14[address] [facility] . [address] [place] [address] [place] [address] [phone] (Wo rk) Social History Tobacco Use Types [...] on filedocumented in this encounter Care Teams Wastewater Superintendent Relationship Specialty Start Date End Date Antonio Jerez MD PCP - General 07/25/10 12/22/10 [address] [facility] [place] [address] documented as of this encounter
--- OUTSIDE RECORDS SUMMARY | 2022-03-14 18:52 | XMS_ITS | Encounter Summary ---
:1970 Author Organization [facility] Address [address] [place] [address] Care Team Providers Name Role Phone Antonio Jerez MD Primary Care Provider Encounter Details Date Type Department Care Team Description 10/08/2009 PN Conversion Only OTHER CONVERSION [address] [place] [address] Social History Tobacco Use Types Packs/Day Years Used Date Smoking Tobacco: Never Assessed Sex Assigned at Date Recorded Not on file documented as of this encounter Plan of Treatment Not on filedocumented as of this encounter Visit Diagnoses Not on filedocumented in this encounter Care Teams Instrument Technician Apprentice Relationship Specialty Start Date End Date Antonio Jerez MD PCP - General 07/25/10 12/22/10 [address] [place] [address] documented as of this encounter
--- OUTSIDE RECORDS SUMMARY | 2022-03-14 18:52 | XMS_ITS | Encounter Summary ---
:1970 Author Organization [facility] Address [address] [place] [address] Care Team Providers Name Role Phone Antonio Jerez MD Primary Care Provider Encounter Details Date Type Department Care Team Description 06/19/2010 PN Conversion Only [place] CONVERSION Vane Zarate MD [address] [facility] [address] [place] [address] [address] [place] [address] Social History Tobacco Use Types Packs/Day Years Used Date Smoking Tobacco: Never Assessed Sex Assigned at Date Recorded Not on file documented as of this encounter Plan of Treatment Not on filedocumented as of this encounter Procedures Procedure Name Priority Date/Time Associated Comments Diagnosis CARNITINE FREE AND Routine 06/19/2010 4:02 PM Res ults for this TOTAL ACTUARIAL MANAGER procedure are i n the results section. COMPLETE BLOOD Routine 06/19/2010 4:02 PM Results for this COUNT-W/DIFF ACTUARIAL MANAGER procedure are i n the results section. DIFFERENTIAL Routine 06/19/2010 4:02 PM Results f or this ACTUARIAL MANAGER procedure are i n the results section. AMYLASE Routine 06/19/2010 4:02 PM Results f or this ACTUARIAL MANAGER procedure are i n the results section. VALPROIC ACID Routine 06/19/2010 4:02 PM Results for this (DEPAKENE) ACTUARIAL MANAGER procedure are i n the results section. LIPASE Routine 06/19/2010 4:02 PM Results f or this ACTUARIAL MANAGER procedure are i n the results section. GT (GAMMA GT) Routine 06/19/2010 4:02 PM Results for this ACTUARIAL MANAGER procedure are i n the results section. AMMONIA Routine 06/19/2010 4:02 PM Results f or this ACTUARIAL MANAGER procedure are i n the results section. ALT (SGPT) Routine 06/19/2010 4:02 PM Results f or this ACTUARIAL MANAGER procedure are i n the results section. AST Routine 06/19/2010 4:02 PM Results f or this ACTUARIAL MANAGER procedure are i n the results section. CK, TOTAL Routine 06/19/2010 4:02 PM Results f or this ACTUARIAL MANAGER procedure are i n the results section. documented in this encounter Results (ABNORMAL) Differential (06/19/2010 4:02 PM ACTUARIAL MANAGER) [facility] gist Method Time Signature Absolute 3.2 1.8 [...] / / Volume Laterality 06/19/2010 4:02 PM ACTUARIAL MANAGER Vane Zarate MD LAB_1 Performing Organization Address City/State/ZIP Code Phon e Number HP CONVERSION Ammonia (06/19/2010 4:02 PM ACTUARIAL MANAGER) athologist Signature Ammonia, Blood 32 0 - 44 HP CONVERSION umol/L Specimen (Source) Anatomical Collection Method Collection Time Re ceived Time Location / / Volume Laterality 06/19/2010 4:02 PM ACTUARIAL MANAGER Vane Zarate MD LAB_1 Performing Organization Address City/State/ZIP Code Phon e Number HP CONVERSION CARNITINE FREE AND TOTAL (06/19/2010 4:02 PM ACTUARIAL MANAGER) athologist Signature Carnitine, Free 30 25 - 60 HP CONVERSION umol/L Comment: faxed to [phone], 011,15:43, by STEDA Carnitine, Total 42 34 - 86 umol/L HP CONVE RSION Comment: faxed to [phone], 011,15:43, by MONICA Carnitine Esterified 12 5 - 29 umol/L HP CO NVERSION Comment: faxed to [phone], 011,15:43, by MONICA Carnitine Kristen/Free Ratio 0.4 0.1 - 1.0 HP CONVERSION Comment: faxed to [phone], 06/20/2010,15:43 , by MONICA Performed at [address] [address] Specimen (Source) Anatomical Collection Method Collection Time Re ceived Time Location / / Volume Laterality 06/19/2010 4:02 PM ACTUARIAL MANAGER Vane Zarate MD LAB_1 Performing Organization Address City/State/ZIP Code Phon e Number HP CONVERSION CK, Total (06/19/2010 4:02 PM ACTUARIAL MANAGER) athologist Signature Creatine Kinase 73 0 - 225 HP CONVERSION U/L Specimen (Source) Anatomical Collection Method Collection Time Re ceived Time Location / / Volume Laterality 06/19/2010 4:02 PM ACTUARIAL MANAGER Vane Zarate MD LAB_1 Performing Organization Address City/State/ZIP Code Phon e Number HP CONVERSION Lipase (06/19/2010 4:02 PM ACTUARIAL MANAGER) athologist Signature Lipase 63 5 - 70 U/L HP CONVERSION Specimen (Source) Anatomical Collection Method Collection Time Re ceived Time Location / / Volume Laterality 06/19/2010 4:02 PM ACTUARIAL MANAGER Vane Zarate MD LAB_1 Performing Organization Address City/State/ZIP Code Phon e Number HP CONVERSION Amylase (06/19/2010 4:02 PM ACTUARIAL MANAGER) athologist Signature Amylase Serum 43 25 - 115 HP CONVERSION U/L Specimen (Source) Anatomical Collection Method Collection Time Re ceived Time Location / / Volume Laterality 06/19/2010 4:02 PM ACTUARIAL MANAGER Vane Zarate MD LAB_1 Performing Organization Address City/State/ZIP Code Phon e Number HP CONVERSION ALT (SGPT) (06/19/2010 4:02 PM ACTUARIAL MANAGER) [facility] gist Method Time Signature Alanine 37 4 - 55 HP CONVERSION Aminotransferase U/L Specimen (Source) Anatomical Collection Method Collection Time Re ceived Time Location / / Volume Laterality 06/19/2010 4:02 PM ACTUARIAL MANAGER Vane Zarate MD LAB_1 Performing Organization Address City/[facility] Code Phon e Number HP CONVERSION AST (06/19/2010 4:02 PM ACTUARIAL MANAGER) [facility] gist Method Time Signature Aspartate 20 0 - 45 HP CONVERSION Aminotransferase U/L Specimen (Source) Anatomical Collection Method Collection Time Re ceived Time Location / / Volume Laterality 06/19/2010 4:02 PM ACTUARIAL MANAGER Vane Zarate MD LAB_1 Performing Organization Address City/[facility] Code Phon e Number HP CONVERSION (ABNORMAL) GT (Gamma GT) (06/19/2010 4:02 PM ACTUARIAL MANAGER) [facility] Method Time Signature Gamma-Glutamyl 182 (H) 1 - 48 U/L HP CONVERSION Transferase Specimen (Source) Anatomical Collection Method Collection Time Re ceived Time Location / / Volume Laterality 06/19/2010 4:02 PM ACTUARIAL MANAGER Vane Zarate MD LAB_1 Performing Organization Address [facility] Phon e Number HP CONVERSION Hemogram/Plts/Diff (06/19/2010 4:02 PM ACTUARIAL MANAGER) P athologist Signature White Blood Cell 8.6 [...] / / Volume Laterality 06/19/2010 4:02 PM ACTUARIAL MANAGER Vane Zarate MD LAB_1 Performing Organization Address [facility] Phon e Number HP CONVERSION (ABNORMAL) Valproic Acid (Depakene) (06/19/2010 4:02 PM ACTUARIAL MANAGER) [facility] gist Method Time Signature Date Last Dose [id number] No normal HP CONVERSION Valproic Acid range Time Last Dose 1,000 No normal HP CONVERSION Valproic Acid range Valproic 136 (H) 50 - 100 HP CONVERSION Acid/Depakene ug/dL (Valp) Specimen (Source) Anatomical Collection Method Collection Time Re ceived Time Location / / Volume Laterality 06/19/2010 4:02 PM ACTUARIAL MANAGER Vane Zarate MD LAB_1 Performing Organization Address City/State/ZIP Code Phon e Number HP CONVERSION documented in this encounter Visit Diagnoses Not on filedocumented in this encounter Care Teams Medical Imaging Specialist Relationship Specialty Start Date End Date Antonio Jerez MD PCP - General 07/25/10 12/22/10 [address] [place] [address] documented as of this encounter
--- OUTSIDE RECORDS SUMMARY | 2022-03-14 18:52 | XMS_ITS | Encounter Summary ---
:1970 Author Organization [facility] Address [address] [place] [address] Care Team Providers Name Role Phone Lilian Persaud DO Primary Care Provider Encounter Details Date Type Department Care Team Description 01/22/2011 Lab Visit [facility] Pure hyperglyceridemia; [address] DM w/o complication type II, uncontrolled [place] [address] Social History Tobacco Use Types Packs/Day Years [...] Direct LDL(If Needed) (01/22/2011 11:58 AM CDT) [facility] gist Method Time Signature Cholesterol 276 [...] - 01/22/2011 3:11 PM CDT Performed at [facility], [address] [place] [address] Lilian Persaud DO LAB_1 Performing Organization Address City/[facility] Code Phon e Number HP [...] - 01/22/2011 3:11 PM CDT Performed at [facility], [address] [place] [address] Lilian Persaud LAB_1 Performing Organization Address City/[facility] Phon e Number HP CONVERSION (ABNORMAL) GLUCOSE (01/22/2011 11:58 AM CDT) athologist Signature Lab Glucose 249 (H) 60 - 100 HP CONVERSION mg/dL Specimen Anatomical Collection Method Collection Time Receive d Time (Source) Location / / Volume Laterality 01/22/2011 11:58 01/22/2011 2:46 AM CDT PM CDT Narrative HP CONVERSION - 01/22/2011 3:11 PM CDT Performed at [facility], [address] [place] [address] Lilian Persaud DO LAB_1 Performing Organization Address City/[facility] Phon e Number HP CONVERSION Creatinine / [...] - 01/22/2011 3:11 PM CDT Performed at [facility], [address] [place] [address] Lilian Persaud DO LAB_1 Performing Organization Address [facility] Phon e Number HP CONVERSION AST (01/22/2011 11:58 AM CDT) [facility] Method Time Signature Aspartate 27 0 - 45 HP CONVERSION Aminotransferase U/L Specimen Anatomical Collection Method Collection Time Receive d Time (Source) Location / / Volume Laterality 01/22/2011 11:58 01/22/2011 2:46 AM CDT PM CDT Narrative HP CONVERSION - 01/22/2011 3:11 PM CDT Performed at [facility], [address] [place] [address] Lilian Persaud DO LAB_1 Performing Organization Address [facility] Phon e Number HP CONVERSION ALT (SGPT) (01/22/2011 11:58 AM CDT) [facility] Method Time Signature Alanine 41 4 - 55 HP CONVERSION Aminotransferase U/L Specimen Anatomical Collection Method Collection Time Receive d Time (Source) Location / / Volume Laterality 01/22/2011 11:58 01/22/2011 2:46 AM CDT PM CDT Narrative HP CONVERSION - 01/22/2011 3:11 PM CDT Performed at [facility], [address] [place] [address] Lilian Persaud DO LAB_1 Performing Organization Address [facility] Phon e Number HP CONVERSION VENIPUNCTURE (SOBEIDA) (01/22/2011 11:52 AM CDT) athologist Signature Venipuncture Done HP CONVERSION Specimen (Source) Anatomical Collection Method Collection Time Re ceived Time Location / / Volume Laterality 01/22/2011 11:52 AM CDT Narrative HP CONVERSION - 01/22/2011 11:52 AM CDT Performed at [facility], [address] [place] [address] Lilian Persaud DO LAB_1 Performing Organization Address [facility] Phon e Number HP CONVERSION documented in this encounter Visit Diagnoses Diagnosis Pure hyperglyceridemia (HRC) Pure hyperglyceridemia Type II or unspecified type diabetes jasen litus without mention of complication, uncontrolled documented in this encounter Care Teams Sheet Catcher Relationship Specialty Start Date End Date Lilian Persaud DO PCP - General 12/23/10 05/16/12 [address] [place] [address] documented as of this encounter
--- OUTSIDE RECORDS SUMMARY | 2022-03-14 18:52 | XMS_ITS | Encounter Summary ---
:1970 Author Organization [facility] Address [address] [place] [address] Care Team Providers Name Role Phone Antonio Jerez MD Primary Care Provider Encounter Details Date Type Department Care Team Description 12/12/2009 PN Conversion Only [place] CONVERSION Social History Tobacco Use Types Packs/Day Years Used Date Smoking Tobacco: Never Assessed Sex Assigned at Date Recorded Not on file documented as of this encounter Plan of Treatment Not on filedocumented as of this encounter Visit Diagnoses Not on filedocumented in this encounter Care Teams Injection Molding Engineer Relationship Specialty Start Date End Date Antonio Jerez MD PCP - General 07/25/10 12/22/10 [facility] [place] [address] documented as of this encounter
--- OUTSIDE RECORDS SUMMARY | 2022-03-14 18:52 | XMS_ITS | Encounter Summary ---
:1970 Author Organization [facility] Address [address] [place] [address] Care Team Providers Name Role Phone Antonio Jerez MD Primary Care Provider Encounter Details Date Type Department Care Team Description 12/11/2010 Notes/Orders Lilian Camejo, Pure hyperglyceridemia; Medicine DO DM w/o complication type II, uncontrolle d [address] [facility] . [address] [place] [address] [place], [place] [phone] [address] Social History Tobacco Use Types Packs/Day Years Used Date Smoking Tobacco: Never Assessed Sex Assigned at Date Recorded Not on file documented as of this encounter Plan of Treatment Not on filedocumented as of this encounter Visit Diagnoses Diagnosis Pure hyperglyceridemia (HRC) Pure hyperglyceridemia Type II or unspecified type diabetes jasen litus without mention of complication, uncontrolled documented in this encounter Care Teams Cook Candy Relationship Specialty Start Date End Date Antonio Jerez MD PCP - General 07/25/10 12/22/10 [address] [place] [address] documented as of this encounter
--- OUTSIDE RECORDS SUMMARY | 2022-03-14 18:52 | XMS_ITS | Encounter Summary ---
:1970 Author Organization [facility] Address [address], [place] [address] Care Team Providers Name Role Phone Antonio Jerez MD Primary Care Provider Encounter Details Date Type Department Care Team Description 03/17/2009 PN Conversion Only [place] CONVERSION Antonio Jerez, [address] [place] [address] [address] [facility] [place] [address] (Wo rk) Social History Tobacco Use Types Packs/Day Years Used Date Smoking Tobacco: Never Assessed Sex Assigned at Date Recorded Not on file documented as of this encounter Plan of Treatment Not on filedocumented as of this encounter Procedures Procedure Name Priority Date/Time Associated Comments Diagnosis GLUCOSE Routine 03/17/2009 1:20 PM Results f or this TIMING MACHINE OPERATOR procedure are i n the results section. THYROID STIMULATING Routine 03/17/2009 1:20 PM Re sults for this HORMONE TIMING MACHINE OPERATOR procedure are i n the results section. documented in this encounter Results THYROID STIMULATING HORMONE (03/17/2009 1:20 PM TIMING MACHINE OPERATOR) P athologist Signature Thyroid 1.53 0.20 - HP CONVERSION Stimulating 4.50 Hormone uIU/mL Specimen (Source) Anatomical Collection Method Collection Time Re ceived Time Location / / Volume Laterality 03/17/2009 1:20 PM TIMING MACHINE OPERATOR Antonio Jerez MD LAB_1 Performing Organization Address City/State/ZIP Code Phon e Number HP CONVERSION (ABNORMAL) GLUCOSE (03/17/2009 1:20 PM TIMING MACHINE OPERATOR) P athologist Signature Lab Glucose 119 (H) 60 - 100 HP CONVERSION mg/dL Specimen (Source) Anatomical Collection Method Collection Time Re ceived Time Location / / Volume Laterality 03/17/2009 1:20 PM TIMING MACHINE OPERATOR Antonio Jerez MD LAB_1 Performing Organization Address City/State/ZIP Code Phon e Number HP CONVERSION documented in this encounter Visit Diagnoses Not on filedocumented in this encounter Care Teams Aircraft Engine Cylinder Mechanic Relationship Specialty Start Date End Date Antonio Jerez MD PCP - General 07/25/10 12/22/10 [address] [facility] [place] [address] documented as of this encounter
--- OUTSIDE RECORDS SUMMARY | 2022-03-14 18:52 | XMS_ITS | Encounter Summary ---
:1970 Author Organization [facility] Address [address] [place] [address] Care Team Providers Name Role Phone Antnoio Jerez MD Primary Care Provider Reason for Visit Reason Comments Other Encounter Details Date Type Department Care Team Description 12/22/2009 Telephone [facility] [place] [place], Message Other [address] [place] [address] Social History Tobacco Use Types Packs/Day Years Used Date Smoking Tobacco: Never Assessed Sex Assigned at Date Recorded Not on file documented as of this encounter Progress Notes Stevenson Norris MD - 12/22/2009 1:40 PM CDT Phone Note filed by Stevenson Norris MD at 08/15/101643 Author: Stevenson Norris MD Service: (none) Author Type: Physician Filed: 08/15/101643 Note Time: 12/22/091339 Status: Signed Dining Service Inspector: Stevenson Norris MD (Physician) Please schedule FU with me in 4 weeks Created on 22Dec2009 1:40pm by STEVENSON NORRIS On 24Dec2009 1:27pm RENATE MORELAND wrote: Called #[phone], left message for return call to [facility]. Called #[phone], number has been disconnected. On [id number] 10:14am TRA HATFIELD wrote: appt. made Acknowledged by TRA HATFIELD on 2S 10:14am ERATURE CONTROL INSPECTOR documented in this encounter Plan of Treatment Not on filedocumented as of this encounter Visit Diagnoses Not on filedocumented in this encounter Care Teams Engineering Supplies Sales Relationship Specialty Start Date End Date Antonio Jerez MD PCP - General 07/25/10 12/22/10 [address] [place] [address] documented as of this encounter
--- OUTSIDE RECORDS SUMMARY | 2022-03-14 18:52 | XMS_ITS | Encounter Summary ---
:1970 Author Organization [facility] Address [address] [place] [address] Care Team Providers Name Role Phone Michel Daniel MD Primary Care Provider Encounter Details Date Type Department Care Team Description 03/17/2009 Office Visit [facility] Michel Daniel MD [address] [facility] . [address] [place] [address] [place] [address] [phone] (Wo rk) Social History Tobacco Use Types Packs/Day Years Used Date Smoking Tobacco: Never Assessed Sex Assigned at Date Recorded Not on file documented as of this encounter Last Filed Vital Signs Vital Sign Reading Time Taken Comments Blood Pressure 134/76 03/17/2009 12:46 PM SCRAPER TENDER Pulse 88 03/17/2009 12:46 PM SCRAPER TENDER Temperature - - Respiratory Rate - - Oxygen Saturation - - Inhaled Oxygen Concentration - - Weight 98.8 kg (217 lb 11.6 oz) 03/17/2009 12:46 PM C: 98.8kg SCRAPER TENDER Height - - Body Mass Index 31.24 06/24/2008 12:32 PM SCRAPER TENDER documented in this encounter Progress Notes Michel Daniel MD - 03/17/2009 12:01 AM CST Progress Notes signed by Michel Daniel MD at 03/19/09 0717 Author: Michel Daniel MD Service: (none) Author Type: Physician Filed: 08/15/10 1816 Note Time: 03/17/09 0001 Status: Signed Specialized Language Instructor: Michel Daniel MD (Physician) NAME: SHARLENE VARNER MR#: [id number] ACCT: [id number] VISIT: [id number] DICTATING CLINICIAN: MICHEL DANIEL MD CONFIRM #: [id number] LOC: 1202 CLINIC PROGRESS NOTE DATE OF [...] being followed in mental health by Dr. Vnae Zarate, who evidently will be leaving [facility], but he states that he intends to follow her privately into her private office. He was seen by Dr. Zarate on 03/10 and medicine was adjusted at that time and Risperdal was added. He states that he developed muscle spasms, was in the emergency room at [facility] over the weekend. Was started on Benadryl. Had medication pattern changer and repairer the telephone on 03/14 when Stelazine, which [...] get back to him with above results. AAS:[id number] C: 03/17/09 15:06 CONFIRM #: [id number] PER TENDER documented in this encounter Plan of Treatment Not on filedocumented as of this encounter Visit Diagnoses Not on filedocumented in this encounter Care Teams Bag Machine Tender Relationship Specialty Start Date End Date Michel Daniel MD PCP - General 07/25/10 12/22/10 1415 [facility] [place] [address] documented as of this encounter
--- OUTSIDE RECORDS SUMMARY | 2022-03-14 18:52 | XMS_ITS | Encounter Summary ---
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 [address] [facility] Tobacco use disorder; [place] [address] [place], [place] Chest pain [phone] [address] Social History Tobacco Use Types Packs/Day Years [...] 5' 10 (177.8 cm) Weight: 217 lb (45038 g) General: patient in NAD. Alert and [...] insurance , since he cannot afford it [id number]. Patient declined cardiac workup and EKG today. [...] documented in this encounter Care Teams Chief Of Internal Medicine Relationship Specialty Start Date End Date Lilian Persaud DO PCP - General 12/23/10 05/16/12 [address]44 [place] [address] documented as of this encounter
--- OUTSIDE RECORDS SUMMARY | 2022-03-14 18:52 | XMS_ITS | Encounter Summary ---
:1970 Author Organization [facility] Address [address] [place] [address] Care Team Providers Name Role Phone Antonio Jerez MD Primary Care Provider Reason for Visit Reason Comments Follow-up Refill Diabetes Encounter Details Date Type Department Care Team Description 12/11/2010 Office Visit Lilian Camejo, DM w/o complication type II, uncontrolled; Medicine DO Hypertriglyceridemia; [address] Nonspecific abnormal results [place] [address] [place], [place] [phone] [address] Social History Tobacco Use Types Packs/Day Years [...] hospital discharge summary and records reviewed from [facility] from admission November 26 through November [...] has not made an appointment with the photo cartographer yet. patient has had procedure in the [...] BP: 102/66 Pulse: 104 Weight: 215 lb (30097 g) General: Patient alert, in NAD. Head: [...] study documented in this encounter Care Teams Head Of Design Relationship Specialty Start Date End Date Antonio Jerez MD PCP - General 07/25/10 12/22/10 4455 [facility] [place] [address] documented as of this encounter
--- OUTSIDE RECORDS SUMMARY | 2022-03-14 18:52 | XMS_ITS | Encounter Summary ---
:1970 Author Organization [facility] Address [address] [place] [address] Care Team Providers Name Role Phone Antonio Jerez MD Primary Care Provider Encounter Details Date Type Department Care Team Description 07/13/2009 Office Visit [facility] [place] [address] [place] [address] Social History Tobacco Use Types [...] 12:01 AM CDT NAME: SHARLENE VARNER MR#: [id number] ACCT: [id number] VISIT: [id number] DICTATING CLINICIAN: HAILEE VILLARREAL MD CONFIRM #: [id number] LOC: 520 CLINIC PROGRESS NOTE DATE OF VISIT: 07/13/2009 SUBJECTIVE: This 39-year-old male comes in with a few concerns. He has a history of bipolar and has been seen by a psychiatrist in the past. His primary psychiatrist is Dr. Vane Woo, currently does not work at [facility], and he has continued to see her [...] Xanax at night to avoid taking Benadryl. [id number] C: 07/13/09 10:14 CONFIRM #: [id number] documented in this encounter Plan of Treatment Not on filedocumented as of this encounter Visit Diagnoses Not on filedocumented in this encounter Care Teams Equal Employment Opportunity Officer Relationship Specialty Start Date End Date Antonio Jerez MD PCP - General 07/25/10 12/22/10 [facility] [place] [address] documented as of this encounter
--- OUTSIDE RECORDS SUMMARY | 2022-03-14 18:52 | XMS_ITS | Encounter Summary ---
:1970 Author Organization [facility] Address [address], [place] [address] Care Team Providers Name Role Phone Lilian Persaud DO Primary Care Provider Reason for Visit Reason Comments Refill Encounter Details Date Type Department Care Team Description 01/08/[facility]ian Persaud [facility] Refill 1415 [facility] . [address] [place] [address] [place] [address] [phone] (Wo rk) Social History Tobacco Use Types [...] uncontrolled documented in this encounter Care Teams Slat Basket Maker Machine Relationship Specialty Start Date End Date Lilian Persaud DO PCP - General 12/23/10 05/16/12 1415 [place], [place] [address] documented as of this encounter
--- OUTSIDE RECORDS SUMMARY | 2022-03-14 18:52 | XMS_ITS | Encounter Summary ---
:[address] [facility] Address [address] [place] [address] Care Team Providers Name Role Phone Antnoio Jerez MD Primary Care Provider Encounter Details Date Type Department Care Team Description 10/08/2009 PN Conversion Only PRESYBETERIAN CONVERSION Richie Woodall MD [address] [place], [place] [address] Social History Tobacco Use Types Packs/Day Years [...] section. documented in this encounter Results [facility] Echocardiogram (10/08/2009 11:59 AM CDT) Specimen [...] filedocumented in this encounter Care Teams Talent Development Analyst Relationship Specialty Start Date End Date Antonio Jerez MD PCP - General 07/25/10 12/22/10 [address] [place] [address] documented as of this encounter
--- OUTSIDE RECORDS SUMMARY | 2022-03-14 18:52 | XMS_ITS | Encounter Summary ---
:1970 Author Organization [facility] Address [address] [place] [address] Care Team Providers Name Role Phone Antonio Jerez MD Primary Care Provider Encounter Details Date Type Department Care Team Description 08/20/2010 PN Conversion Only [facility] Antonio Jerez , Medicine MD 1415 [facility] . 1415 [place] [address] [place] [address] (Wo rk) Social History Tobacco Use Types Packs/Day Years Used Date Smoking Tobacco: Never Assessed Sex Assigned at Date Recorded Not on file documented as of this encounter Plan of Treatment Not on filedocumented as of this encounter Visit Diagnoses Not on filedocumented in this encounter Care Teams Brewing Director Relationship Specialty Start Date End Date Antonio Jerez MD PCP - General 07/25/10 12/22/10 [address] [place] [address] documented as of this encounter
--- OUTSIDE RECORDS SUMMARY | 2022-03-14 18:52 | XMS_ITS | Encounter Summary ---
:1970 Author Organization [facility] Address [address] [place] [address] Care Team Providers Name Role Phone Michel Daniel MD Primary Care Provider Reason for Visit Reason Comments Other Encounter Details Date Type Department Care Team Description 12/16/2009 [facility] Daniel MD Other [address] [facility] . 1415 [facility] [place] [address] [place] [address] [phone] (Wo rk) Social History Tobacco Use Types Packs/Day Years Used Date Smoking Tobacco: Never Assessed Sex Assigned at Date Recorded Not on file documented as of this encounter Progress Notes Center, Message - 12/16/2009 10:03 AM CDT Phone Note filed by [employer] at 08/15/10 0334 Author: [employer] Service: (none) Author Type: (none) Filed: 08/15/10 1270 Note Time: 12/16/09 1003 Status: Signed Viscosity Tester: [employer] (Resource) PRESCRIPTION REFILL Please provide enough refills to last until patient's next visit. Comment:- Pharmacy Seq #:-[phone] Pharmacy Name-Phone/Fax:-[facility] Street or City:-[place] Clinician Name:-Talisha [facility] Name/Strength:-risperdal 3mg Sig: Dose/Route/Freq:-take 2 tabs po qhs Quantity & Last Fill:-60 10/08/09 *ECODE~PNRF Created on 16Dec2009 10:03am by ANALY LIM On 16Dec2009 11:55am MICHEL DANIEL wrote: sent Acknowledged by MICHEL DANIEL on 11:55am DESK TROUBLE LOCATOR documented in this encounter Plan of Treatment Not on filedocumented as of this encounter Visit Diagnoses Not on filedocumented in this encounter Care Teams Licensed Real Estate Broker Relationship Specialty Start Date End Date Michel Daniel MD PCP - General 07/25/10 12/22/10 [address] [place] [address] documented as of this encounter
--- OUTSIDE RECORDS SUMMARY | 2022-03-14 18:52 | XMS_ITS | Encounter Summary ---
:1970 Author Organization [facility] Address [address] [place] [address] Care Team Providers Name Role Phone Antonio Jerez MD Primary Care Provider Encounter Details Date Type Department Care Team Description 11/25/2010 Lab Visit [place] [facility] DM w/o complication type II, [address] uncontrolled [place] [address] Social History Tobacco Use Types Packs/Day Years [...] (ABNORMAL) HGB A1C (11/25/2010 4:18 PM CDT) [facility] gist Method Time Signature Hemoglobin 10.0 (H) 0.0 - 6.0 HP CONVERSION A1CRM % Specimen Anatomical Collection Method Collection Time Receive d Time (Source) Location / / Volume Laterality 11/25/2010 4:18 PM 1 8:47 CDT PM CDT Narrative HP CONVERSION - 11/26/2010 1:31 PM CDT .Critical NA result of 126 called to an d read back by Mimi at [facility],.11/26/2010,12:15, by ALISHA Lilian Persaud DO LAB_1 Performing Organization Address [facility] Code Phon e Number HP CONVERSION Hgb [...] PM 1 8:47 CDT PM CDT Lilian Homa Persaud DO LAB_1 Performing Organization Address [facility]/ZIP Code Phon e Number HP CONVERSION (ABNORMAL) Electrolyte Panel (11/25/2010 4:18 PM CDT) P athologist Signature Sodium 126 (CL) 137 - 147 HP CONVERSION mEq/L Potassium 4.9 3.5 - 5.2 HP CONVERSION mEq/L Chloride 92 (L) 98 - 110 HP CONVERSION mEq/L Bicarbonate 23 23 - 33 HP CONVERSION mmol/L Specimen Anatomical Collection Method Collection Time Receive d Time (Source) Location / / Volume Laterality 11/25/2010 4:18 PM 1 8:05 CDT PM CDT Lilian Persaud DO LAB_1 Performing Organization Address City/[facility]/ZIP Code Phon e Number HP CONVERSION (ABNORMAL) Creatinine [...] an d read back by Mimi at [facility],.11/26/2010,12:15, by ALISHA Lilian Persaud DO LAB_1 Performing Organization Address [facility] Phon e Number HP CONVERSION VENIPUNCTURE (SOBEIDA) (11/25/2010 4:09 PM CDT) P athologist Signature Venipuncture Done HP CONVERSION Specimen (Source) Anatomical Collection Method Collection Time Re ceived Time Location / / Volume Laterality 11/25/2010 4:09 PM CDT Narrative HP CONVERSION - 11/25/2010 4:09 PM CDT Performed at [facility], [address] [place] [address] Lilian Persaud DO LAB_1 Performing Organization Address [facility] Phon e Number HP CONVERSION documented in this encounter Visit Diagnoses Diagnosis Type II or unspecified type diabetes jasen litus without mention of complication, uncontrolled documented in this encounter Care Teams Bindery Assistant Relationship Specialty Start Date End Date Antonio Jerez MD PCP - General 07/25/10 12/22/[address] [place] [address] documented as of this encounter
--- OUTSIDE RECORDS SUMMARY | 2022-03-14 18:52 | XMS_ITS | Encounter Summary ---
:1970 Author Organization [facility] Address [address] [place] [address] Care Team Providers Name Role Phone Antonio Jerez MD Primary Care Provider Encounter Details Date Type Department Care Team Description 11/06/2009 PN Conversion Only OTHER CONVERSION [address] [place] [address] Social History Tobacco Use Types Packs/Day Years Used Date Smoking Tobacco: Never Assessed Sex Assigned at Date Recorded Not on file documented as of this encounter Plan of Treatment Not on filedocumented as of this encounter Visit Diagnoses Not on filedocumented in this encounter Care Teams Adjunct Professor Of [place]. History Relationship Specialty Start Date End Date Antonio Jerez MD PCP - General 07/25/10 12/22/10 1415 [place] [address] documented as of this encounter
--- OUTSIDE RECORDS SUMMARY | 2022-03-14 18:52 | XMS_ITS | Encounter Summary ---
:1970 Author Organization [facility] Address [address] [place] [address] Care Team Providers Name Role Phone Lilian Persaud DO Primary Care Provider Reason for Visit Reason Comments Forms Encounter Details Date Type Department Care Team Description 01/11/2011 Telephone [facility] Lilian Persaud DO Forms [address] [facility] [address] [place] [address] [place] [address] [phone] (Wo rk) Social History Tobacco Use Types Packs/Day Years Used Date Smoking Tobacco: Never Assessed Sex Assigned at Date Recorded Not on file documented as of this encounter Nursing Notes Marco Antonio Malcolm MA - 01/12/2011 10:15 AM CDT form faxed Lilian Persaud DO - 01/12/2011 8:53 AM CDT paperwork [...] filedocumented in this encounter Care Teams Sheet Rock Layer Relationship Specialty Start Date End Date Lilian Persaud DO PCP - General 12/23/10 05/16/12 1415 [place] [address] documented as of this encounter
--- OUTSIDE RECORDS SUMMARY | 2022-03-14 18:52 | XMS_ITS | Encounter Summary ---
:1970 Author Organization [facility] Address [address] [place] [address] Care Team Providers Name Role Phone Antonio Jerez MD Primary Care Provider Encounter Details Date Type Department Care Team Description 09/04/2010 Office Visit [facility] Lilian Persaud, DO 14[address] [facility] . [address] [place] [address] [place] [address] [phone] (Wo rk) Social History Tobacco Use Types Packs/Day Years Used Date Smoking Tobacco: Never Assessed Sex Assigned at Date Recorded Not on file documented as of this encounter Progress Notes Lilian Persaud DO - 09/04/2010 12:01 AM CDT Acute Clinic [...] on filedocumented in this encounter Care Teams Parts Control Clerk Relationship Specialty Start Date End Date Antonio Jerez MD PCP - General 07/25/10 12/22/10 [address]15 [facility] [place] [address] documented as of this encounter
--- OUTSIDE RECORDS SUMMARY | 2022-03-14 18:52 | XMS_ITS | Encounter Summary ---
:1970 Author Organization [facility] Address [address] [place] [address] Care Team Providers Name Role Phone Antonio Jerez MD Primary Care Provider Encounter Details Date Type Department Care Team Description 11/25/2010 Notes/Orders Lilian Camejo, DM w/o complication Medicine DO type II, uncontrolled 14[address] [facility] . [address] (Primary Dx) [place] [address] [place], [place] [phone] [address] Social History Tobacco Use Types Packs/Day Years Used Date Smoking Tobacco: Never Assessed Sex Assigned at Date Recorded Not on file documented as of this encounter Plan of Treatment Not on filedocumented as of this encounter Visit Diagnoses Diagnosis Type II or unspecified type diabetes jasen litus without mention of complication, uncontrolled - Primary documented in this encounter Care Teams Dry Cans Operator Relationship Specialty Start Date End Date Antonio Jerez MD PCP - General 07/25/10 12/22/10 1415 [place] [address] documented as of this encounter
--- OUTSIDE RECORDS SUMMARY | 2022-03-14 18:52 | XMS_ITS | Encounter Summary ---
:1970 Author Organization [facility] Address [address] [place] [address] Care Team Providers Name Role Phone Lilian Persaud DO Primary Care Provider Encounter Details Date Type Department Care Team Description 12/23/2010 Lab Visit [facility] Encounter for long-term [address] (current) use of other [place] [address] medications [phone] Social History Tobacco Use Types Packs/Day Years [...] - 12/23/2010 8:20 PM CDT Performed at [facility], [address] [place] [address] Lilain Persaud DO LAB_1 Performing Organization Address [facility] Phon e Number HP CONVERSION AST (12/23/2010 2:44 PM CDT) [facility] PPTV Method Time Signature Aspartate 26 0 - 45 HP CONVERSION Aminotransferase U/L Specimen Anatomical Collection Method Collection Time Receive d Time (Source) Location / / Volume Laterality 12/23/2010 2:44 PM 1 7:57 CDT PM CDT Narrative HP CONVERSION - 12/23/2010 8:20 PM CDT Performed at [facility], [address] [place] [address] Lilian Persaud DO LAB_1 Performing Organization Address [facility] Phon e Number HP CONVERSION ALT (SGPT) (12/23/2010 2:44 PM CDT) [facility] PPTV Method Time Signature Alanine 38 4 - 55 HP CONVERSION Aminotransferase U/L Specimen Anatomical Collection Method Collection Time Receive d Time (Source) Location / / Volume Laterality 12/23/2010 2:44 PM 1 7:57 CDT PM CDT Narrative HP CONVERSION - 12/23/2010 8:20 PM CDT Performed at [facility], [address] [place] [address] Lilian Persaud DO LAB_1 Performing Organization Address [facility] Phon e Number HP CONVERSION VENIPUNCTURE (SOBEIDA) (12/23/2010 2:38 PM CDT) P athologist Signature Venipuncture Done HP CONVERSION Specimen (Source) Anatomical Collection Method Collection Time Re ceived Time Location / / Volume Laterality 12/23/2010 2:38 PM CDT Narrative HP CONVERSION - 12/23/2010 2:38 PM CDT Performed at [facility], [address] [place], [place] [address] [address] Lilian Persaud DO LAB_1 Performing Organization Address City/State/ZIP Code Phon e Number HP CONVERSION documented in this encounter Visit Diagnoses Diagnosis Encounter for long-term (current) use of other medications documented in this encounter Care Teams Etl Consultant Relationship Specialty Start Date End Date Lilian Persaud DO PCP - General 12/23/10 05/16/[address] [place] [address] [place] [address] documented as of this encounter
--- OUTSIDE RECORDS SUMMARY | 2022-03-14 18:52 | XMS_ITS | Encounter Summary ---
:1970 Author Organization [facility] Address [address] [place] [address] Care Team Providers Name Role Phone Antonio Jerez MD Primary Care Provider Encounter Details Date Type Department Care Team Description 06/19/2010 PN Conversion Only [place] CONVERSION Arina Huff, [address] [place] [address] Social History Tobacco Use Types Packs/Day Years Used Date Smoking Tobacco: Never Assessed Sex Assigned at Date Recorded Not on file documented as of this encounter Plan of Treatment Not on filedocumented as of this encounter Visit Diagnoses Not on filedocumented in this encounter Care Teams Soda Room Operator Relationship Specialty Start Date End Date Antonio Jerez MD PCP - General 07/25/10 12/22/10 14[address] [place] [address] documented as of this encounter
--- OUTSIDE RECORDS SUMMARY | 2022-03-14 18:52 | XMS_ITS | Encounter Summary ---
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 [address] [facility] Erectile dysfunction; [place] [address] [place], [place] Tobacco use disorder; [phone] [address] Chest pain Social History Tobacco Use [...] denies any history of pancreatitis. Patient's last [id number] was 10.0. Patient has a history of [...] ago. He has not been to the cheese specialist since. Ongoing for a several weeks. No [...] 5' 9.5 (176.5 cm) Weight: 217 lb (10822 g) General: Patient alert, in NAD. Left [...] unspecified documented in this encounter Care Teams Yarn Carrier Relationship Specialty Start Date End Date Lilian Persaud DO PCP - General 12/23/10 05/16/12 [address] [place] [address] documented as of this encounter
--- OUTSIDE RECORDS SUMMARY | 2022-03-14 18:52 | XMS_ITS | Encounter Summary ---
:1970 Author Organization [facility] Address [address] [place] [address] Care Team Providers Name Role Phone Antonio Jerez MD Primary Care Provider Encounter Details Date Type Department Care Team Description 12/21/2009 PN Conversion Only CONVERSION CONVERSION Ida Woodall MD [address] [place] [address] Social History Tobacco Use Types Packs/Day Years Used Date Smoking Tobacco: Never Assessed Sex Assigned at Date Recorded Not on file documented as of this encounter Plan of Treatment Not on filedocumented as of this encounter Visit Diagnoses Not on filedocumented in this encounter Care Teams Fitness Worker Relationship Specialty Start Date End Date Antonio Jerez MD PCP - General 07/25/10 12/22/10 1415 [place], [place] [address] documented as of this encounter
--- OUTSIDE RECORDS SUMMARY | 2022-03-14 18:52 | XMS_ITS | Encounter Summary ---
:1970 Author Organization [facility] Address [address] [address] Care Team Providers Name Role Phone Lilian Persaud DO Primary Care Provider Encounter Details Date Type Department Care Team Description 12/23/2010 Notes/Orders Lilian Camejo Encount er for Medicine DO long-term (current) 1415 [facility] . [address] use of other [place] [address] [place], [place] medications (Primary [phone] Dx) Social History Tobacco Use Types Packs/Day Years Used Date Smoking Tobacco: Never Assessed Sex Assigned at Date Recorded Not on file documented as of this encounter Plan of Treatment Not on filedocumented as of this encounter Visit Diagnoses Diagnosis Encounter for long-term (current) use of other medications - Primary documented in this encounter Care Teams Analytics Senior Manager Relationship Specialty Start Date End Date Lilian Persaud DO PCP - General 12/23/10 05/16/12 1415 [place] [id number] documented as of this encounter
--- OUTSIDE RECORDS SUMMARY | 2022-03-14 18:53 | XMS_ITS | Encounter Summary ---
:1970 [facility] Address [address] [place] [address] Care Team Providers Name Role Phone Antonio Jerez MD Primary Care Provider Encounter Details Date Type Department Care Team Description 02/24/2009 Boring Mill Operator Only CONVERSION CONVERSION Vane Zarate MD [address] [place], [place] [address] (Wo rk) Social History Tobacco Use Types Packs/Day Years Used Date Smoking Tobacco: Never Assessed Sex Assigned at Date Recorded Not on file documented as of this encounter Progress Notes Vane Zarate MD - 02/24/2009 12:01 AM CST Progress Notes signed by Vane Zarate MD at 02/24/09 1102 Author: Vane Zarate MD Service: (none) Author Type: Physician Filed: 08/15/10 1740 Note Time: 02/24/09 0001 Status: Signed House Rn: Vane Zarate MD (Physician) Please accept this note as documentation that Mr. Krishnamurthy will need to miss work until March 03 owing to medication adjustments. Thank you for your attention. S SECRETARY documented in this encounter Plan of Treatment Not on filedocumented as of this encounter Visit Diagnoses Not on filedocumented in this encounter Care Teams Poke In Relationship Specialty Start Date End Date Antonio Jerez MD PCP - General 07/25/10 12/22/10 [address] [place] [address] documented as of this encounter
--- OUTSIDE RECORDS SUMMARY | 2022-03-14 18:53 | XMS_ITS | Encounter Summary ---
:1970 Author [facility] Address [address] [place] [address] Care Team Providers Name Role Phone Antonio Jerez MD Primary Care Provider Encounter Details Date Type Department Care Team Description 06/11/2008 Saturator Tender Only CONVERSION CONVERSION Vane Zarate MD [address] [place], [place] [address] (Wo rk) Social History Tobacco Use Types Packs/Day Years Used Date Smoking Tobacco: Never Assessed Sex Assigned at Date Recorded Not on file documented as of this encounter Progress Notes Vaen Zarate MD - 06/11/2008 12:01 AM CST Progress Notes signed by Vane Zarate MD at 06/11/08 0849 Author: Vane Zarate MD Service: (none) Author Type: Physician Filed: 08/15/10 1059 Note Time: 06/11/08 0001 Status: Signed Sales Property Manager: Vane Zarate MD (Physician) patient did not appear for this appointment. he was seen in an urgent appointment yesterday; t withhis one might have been scheduled as a backup or in error. ARD/STEWARDESS SMOKE ROOM documented in this encounter Plan of Treatment Not on filedocumented as of this encounter Visit Diagnoses Not on filedocumented in this encounter Care Teams Bookkeeping Assistant Relationship Specialty Start Date End Date Antonio Jerez MD PCP - General 07/25/10 12/22/10 [address] [place] [address] documented as of this encounter
--- OUTSIDE RECORDS SUMMARY | 2022-03-14 18:53 | XMS_ITS | Encounter Summary ---
:1970 [facility] Address [address], [place] [address] Care Team Providers Name Role Phone Michel Daniel MD Primary Care Provider Reason for Visit Reason Comments Other Encounter Details Date Type Department Care Team Description 03/20/2007 [facility]phone [facility] 1415 [facility] . [place], [place] [address] Social History Tobacco Use Types Packs/Day Years Used Date Smoking Tobacco: Never Assessed Sex Assigned at Date Recorded Not on file documented as of this encounter Progress Notes Herlinda Lucio HUC - 03/20/2007 8:44 AM CST Phone Note filed by Herlinda Alaniz MA at 08/12/10919 Author: Herlinda Alaniz MA Service: (none) Author Type: (none) Filed: 08/12/10919 Note Time: 03/20/07843 Status: Signed Agricultural Extension Agent: Niko Conversion Medication Issue/Refill Caller Name/Relationship:simone Primary Refinery Operator Visbreaking:makenzie Comment/Symptom:pt is wondering if he should get more beta blockers Pharmacy [facility] & Phone #[facility] Street or City:[place] Drug Name:metoprolol Strength:50mg Dose/Route/Freq:1/2 tab 2x daily Automatic Machines Supervisor:simone Best call back number:[phone] Is it OK to leave a confidential message on this voicemail?yes Created on 20Mar2007 8:44am by HALLIN, HERLINDA B On 20Mar2007 9:39am MICHEL DANIEL wrote: There does not appear to be a reason to be on beta blockers Acknowledged by MICHEL DANIEL on 9:39am On 20Mar2007 10:38am ALPHONSO QUESADA wrote: info given to pt as above. Acknowledged by ALPHONSO QUESADA on 10:38am EL BUNG REMOVER AND DUMPER documented in this encounter Plan of Treatment Not on filedocumented as of this encounter Visit Diagnoses Not on filedocumented in this encounter Care Teams Correctional Counselor Relationship Specialty Start Date End Date Michel Daniel MD PCP - General 07/25/10 12/22/[address] [place] [address] documented as of this encounter
--- OUTSIDE RECORDS SUMMARY | 2022-03-14 18:53 | XMS_ITS | Encounter Summary ---
:1970 Author Organization [facility] Address [address] [place] [address] Care Team Providers Name Role Phone Antonio Jerez MD Primary Care Provider Encounter Details Date Type Department Care Team Description 02/07/2007 PN Conversion Only Kevin Blackburn, [address] [place] [place] [address] [facility] [address] [place] [address] Social History Tobacco Use Types [...] Results ALT (SGPT) (02/07/2007 8:22 AM CDT) [facility] gist Method Time Signature Alanine [...] CONVERSION Valproic Acid range Date Last Dose [id number] No normal HP CONVERSION Valproic Acid range [...] on filedocumented in this encounter Care Teams Shipbuilding Draftsperson Relationship Specialty Start Date End Date Antonio Jerez MD PCP - General 07/25/10 12/22/10 [facility] [place] [address] documented as of this encounter
--- OUTSIDE RECORDS SUMMARY | 2022-03-14 18:53 | XMS_ITS | Encounter Summary ---
:1970 Author Organization [facility] Address [address] [place] [address] Care Team Providers Name Role Phone Antonio Jerez MD Primary Care Provider Encounter Details Date Type Department Care Team Description 08/04/2007 PN Conversion Only Kevin Blackburn, [address] [facility] [place] [address] [address] [facility] [address] [place] [address] Social [...] (ABNORMAL) ALT (SGPT) (08/04/2007 8:30 AM CDT) [facility] gist Method Time Signature Alanine 73 (H) 4 - 55 HP CONVERSION Aminotransferase U/L Specimen (Source) Anatomical Collection Method Collection Time Re ceived Time Location / / Volume Laterality 08/04/2007 8:30 AM CDT Kevin Hanson MD LAB_1 Performing Organization Address City/State/ZIP Code Phon e Number HP CONVERSION (ABNORMAL) Valproic Acid (Depakene) (08/04/2007 8:30 AM CDT) Analysis Performed At [facility] Time Signature Time Last Dose 2,100 No normal HP CONVERSION Valproic Acid range Date Last Dose [id number] No normal HP CONVERSION Valproic Acid range [...] on filedocumented in this encounter Care Teams Publicity Consultant Relationship Specialty Start Date End Date Antonio Jerez MD PCP - General 07/25/10 12/22/10 [facility] [place] [address] documented as of this encounter
--- OUTSIDE RECORDS SUMMARY | 2022-03-14 18:53 | XMS_ITS | Encounter Summary ---
:1970 Author Organization [facility] Address [address] [place] [address] Care Team Providers Name Role Phone Michel Daniel MD Primary Care Provider Encounter Details Date Type Department Care Team Description 02/28/2007 Office Visit [facility] Michel Daniel MD 1415 [facility] . [address] [place] [address] [place] [address] [phone] (Wo rk) Social History Tobacco Use Types Packs/Day Years Used Date Smoking Tobacco: Never Assessed Sex Assigned at Date Recorded Not on file documented as of this encounter Last Filed Vital Signs Vital Sign Reading Time Taken Comments Blood Pressure 136/84 02/28/2007 2:19 PM APPRENTICE TECHNICIAN Pulse 80 02/28/2007 2:19 PM APPRENTICE TECHNICIAN Temperature - - Respiratory Rate - - Oxygen Saturation - - Inhaled Oxygen Concentration - - Weight 97.1 kg (213 lb 15.7 oz) 02/28/2007 2:19 PM APPRENTICE TECHNICIAN C: 97.1kg Height - - Body Mass Index - - documented in this encounter Progress Notes Michel Daniel MD - 02/28/2007 12:01 AM CST Progress Notes signed by Michel Daniel MD at 03/06/07 0746 Author: Michel Daniel MD Service: (none) Author Type: Physician Filed: 08/14/10 0764 Note Time: 02/28/07 0001 Status: Signed Welding Equipment Repairer Supervisor: Michel Daniel MD (Physician) NAME: SHARLENE VARNER MR#: [id number] ACCT: [id number] VISIT: [id number] DICTATING CLINICIAN: MICHEL DANIEL MD JOB: [id number] LOC: 1202 CLINIC PROGRESS NOTE DATE OF [...] of him being hyperthyroid are very low. AAS:[id number] C: 03/01/07 16:00 DOCUMENT: [id number] ENTICE TECHNICIAN documented in this encounter Plan of Treatment Not on filedocumented as of this encounter Visit Diagnoses Not on filedocumented in this encounter Care Teams Employment Attorney Relationship Specialty Start Date End Date Michel Daniel MD PCP - General 07/25/10 12/22/10 [address] [place] [address] documented as of this encounter
--- OUTSIDE RECORDS SUMMARY | 2022-03-14 18:53 | XMS_ITS | Encounter Summary ---
:1970 Author [facility] Address [address] [place] [address] Care Team Providers Name Role Phone Antonio Jerez MD Primary Care Provider Encounter Details Date Type Department Care Team Description 06/13/2008 Fabric Worker Foreman Only CONVERSION CONVERSION Vane Zarate MD [address] [place], [place] [address] (Wo rk) Social History [...] 1104 Note Time: 06/13/08 0001 Status: Signed Laboratory Worker: Vane Zarate MD (Physician) Addendum: Patient's classified advertising supervisor, Radha, accompanied him and understood all recommendations and safety related planning. NOLOGY SPECIALIST documented in this encounter Plan of Treatment Not on filedocumented as of this encounter Visit Diagnoses Not on filedocumented in this encounter Care Teams Redeye Gunner Relationship Specialty Start Date End Date Antonio Jerez MD PCP - General 07/25/10 12/22/10 [address] [place], [place] [address] documented as of this encounter
--- OUTSIDE RECORDS SUMMARY | 2022-03-14 18:53 | XMS_ITS | Encounter Summary ---
:1970 Author Organization [facility] Address [address], [place] [address] Care Team Providers Name Role Phone Antonio Jerez MD Primary Care Provider Encounter Details Date Type Department Care Team Description 01/16/2009 PN Conversion Only GOLD ASSAYER 3850 CONV Vane Zarate MD [address] [place] [address] [address] [place] [address] Social History Tobacco Use Types Packs/Day Years [...] (01/16/2009 11:28 AM CDT) [facility] Time Signature Time Last Dose 2,230 No normal HP CONVERSION Valproic Acid range Date Last Dose [id number] No normal HP CONVERSION Valproic Acid range Valproic 105 (H) 50 - 100 HP CONVERSION Acid/Depakene ug/mL (Valp) Specimen (Source) Anatomical Collection Method Collection Time Re ceived Time Location / / Volume Laterality 01/16/2009 11:28 AM CDT Vane Zarate MD LAB_1 Performing Organization Address City/[facility] Code Phon e Number HP CONVERSION (ABNORMAL) GT (Gamma GT) (01/16/2009 11:28 AM CDT) [facility] gist Method Time Signature Gamma-Glutamyl 267 (H) 1 - 48 U/L HP CONVERSION Transferase Specimen (Source) Anatomical Collection Method Collection Time Re ceived Time Location / / Volume Laterality 01/16/2009 11:28 AM CDT Vane Zarate MD LAB_1 Performing Organization Address City/[facility] Phon e Number HP CONVERSION AST (01/16/2009 11:28 AM CDT) [facility] gist Method Time Signature Aspartate 34 0 - 45 HP CONVERSION Aminotransferase U/L Specimen (Source) Anatomical Collection Method Collection Time Re ceived Time Location / / Volume Laterality 01/16/2009 11:28 AM CDT Vane Zarate MD LAB_1 Performing Organization Address City/[facility] Code Phon e Number HP CONVERSION Amylase (01/16/2009 11:28 AM CDT) athologist Signature Amylase Serum 37 25 - 115 HP CONVERSION U/L Specimen (Source) Anatomical Collection Method Collection Time Re ceived Time Location / / Volume Laterality 01/16/2009 11:28 AM CDT Vane Zarate MD LAB_1 Performing Organization Address City/[facility] Phon e Number HP CONVERSION (ABNORMAL) ALT (SGPT) (01/16/2009 11:28 AM CDT) [facility] gist Method Time Signature Alanine 57 [...] Vane Zarate MD LAB_1 Performing Organization Address City/[facility]/ZIP Code Phon e Number HP CONVERSION Hemogram/Plts/Diff [...] - HP CONVERSION Hemoglobin Conc 36.5 gm/dL [place] RDW 11.2 11.0 - HP CONVERSION 15.0 [...] in this encounter Care Teams Real Estate Agent/Broker Relationship Specialty Start Date End Date Antonio Jerez MD PCP - General 07/25/10 12/22/10 [address] [place] [address] documented as of this encounter
--- OUTSIDE RECORDS SUMMARY | 2022-03-14 18:53 | XMS_ITS | Encounter Summary ---
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 Note written per his request. time spent: 20 minutes return visit: Two weeks *SH~DAVIDS~dena documented in this encounter Plan of Treatment Not on filedocumented as of this encounter Visit Diagnoses Not on filedocumented in this encounter Care Teams Gandy Dancer Relationship Specialty Start Date End Date Antonio Jerez MD PCP - General 07/25/10 12/22/10 [employer] [place] [address] documented as of this encounter
--- OUTSIDE RECORDS SUMMARY | 2022-03-14 18:53 | XMS_ITS | Encounter Summary ---
:1970 Author [facility] Address [address] [place] [address] Care Team Providers Name Role Phone Antonio Jerez MD Primary Care Provider Encounter Details Date Type Department Care Team Description 07/30/2008 Chief Librarian Music Department Only CONVERSION CONVERSION Vane Zarate MD [address] [place], [place] [address] (Wo rk) Social History [...] 1219 Note Time: 07/30/08 0001 Status: Signed Glass Cutter Helper: Vane Zarate MD (Physician) Please accept this note as documentation that I am recommending that Mr. Krishnamurthy return to work with no restrictions. Thank you very much. documented in this encounter Plan of Treatment Not on filedocumented as of this encounter Visit Diagnoses Not on filedocumented in this encounter Care Teams Corporate Responsibility Officer Relationship Specialty Start Date End Date Antonio Jerez MD PCP - General 07/25/10 12/22/10 [address] [place] [address] documented as of this encounter
--- OUTSIDE RECORDS SUMMARY | 2022-03-14 18:53 | XMS_ITS | Encounter Summary ---
:1970 Author Organization [facility] Address [address] [place] [address] Care Team Providers Name Role Phone Antonio Jerez MD Primary Care Provider Encounter Details Date Type Department Care Team Description 06/24/2008 Office Visit [facility] Antonio Jerez MD 1415 [facility] . [address] [facility] [place] [address] [place] [address] (Wo rk) Social History Tobacco Use Types Packs/Day Years Used Date Smoking Tobacco: Never Assessed Sex Assigned at Date Recorded Not on file documented as of this encounter Plan of Treatment Not on filedocumented as of this encounter Visit Diagnoses Not on filedocumented in this encounter Care Teams Thread Inspector Relationship Specialty Start Date End Date Antonio Jerez MD PCP - General 07/25/10 12/22/10 [address] [facility] [place] [address] documented as of this encounter
--- OUTSIDE RECORDS SUMMARY | 2022-03-14 18:53 | XMS_ITS | Encounter Summary ---
:1970 [facility] Address [address] [place] [address] Care Team Providers Name Role Phone Antonio Jerez MD Primary Care Provider Encounter Details Date Type Department Care Team Description 07/03/2008 Craniologist Only CONVERSION CONVERSION Vane Zarate MD [address] [place], [place] [address] (Wo rk) Social History [...] 1137 Note Time: 07/03/08 0001 Status: Signed Vp Platforms: Vane Zarate MD (Physician) Please accept this note as documentation that I saw Mr. Krishnamurthy today and he he appears to be restored to a euthymic state and also appears safe to drive. Thank you very much. documented in this encounter Plan of Treatment Not on filedocumented as of this encounter Visit Diagnoses Not on filedocumented in this encounter Care Teams Cardiac Specialist Relationship Specialty Start Date End Date Antonio Jerez MD PCP - General 07/25/10 12/22/[address] [place] [address] documented as of this encounter
--- OUTSIDE RECORDS SUMMARY | 2022-03-14 18:53 | XMS_ITS | Encounter Summary ---
:1970 Author Organization Formerly [facility] Address [address], [place] [address] Care Team Providers Name Role Phone Antonio Jerez MD Primary Care Provider Encounter Details Date Type Department Care Team Description 06/11/2008 PN Conversion Only [place] [address] [place] [address] [address] [place] [address] Social History Tobacco Use Types Packs/Day Years Used Date Smoking Tobacco: Never Assessed Sex Assigned at Date Recorded Not on file documented as of this encounter Plan of Treatment Not on filedocumented as of this encounter Procedures Procedure Name Priority Date/Time Associated Comments Diagnosis ELECTROLYTES (NA, K, Routine 06/11/2008 4:59 PM R esults for this CL, BICARB) GRANULATOR OPERATOR procedure are i n the results section. COMPLETE BLOOD Routine 06/11/2008 4:59 PM Results for this COUNT-W/DIFF GRANULATOR OPERATOR procedure are i n the results section. AMYLASE Routine 06/11/2008 4:59 PM Results f or this GRANULATOR OPERATOR procedure are i n the results section. VALPROIC ACID Routine 06/11/2008 4:59 PM Results for this (DEPAKENE) GRANULATOR OPERATOR procedure are i n the results section. ALT (SGPT) Routine 06/11/2008 4:59 PM Results f or this GRANULATOR OPERATOR procedure are i n the results section. AST Routine 06/11/2008 4:59 PM Results f or this GRANULATOR OPERATOR procedure are i n the results section. ALKALINE PHOSPHATASE, Routine 06/11/2008 4:59 PM Results for this TOTAL GRANULATOR OPERATOR procedure are i n the results section. documented in this encounter Results (ABNORMAL) Complete Blood Count-W/Diff (06/11/2008 4:59 PM GRANULATOR OPERATOR) [facility] Method Time Signature White Blood [...] - HP CONVERSION Hemoglobin Conc 36.5 gm/dL [place] RDW 11.0 11.0 - HP CONVERSION 15.0 [...] / / Volume Laterality 06/11/2008 4:59 PM GRANULATOR OPERATOR Vane Zarate MD LAB_1 Performing Organization Address City/State/ZIP Code Phon e Number HP CONVERSION Alkaline Phosphatase, Total (06/11/2008 4:59 PM GRANULATOR OPERATOR) athologist Signature Alk Phos 55 25 - 135 U/L HP CONVERSION Specimen (Source) Anatomical Collection Method Collection Time Re ceived Time Location / / Volume Laterality 06/11/2008 4:59 PM GRANULATOR OPERATOR Vane Zarate MD LAB_1 Performing Organization Address City/State/ZIP Code Phon e Number HP CONVERSION ALT (SGPT) (06/11/2008 4:59 PM GRANULATOR OPERATOR) Patholo gist Method Time Signature Alanine 40 4 - 55 HP CONVERSION Aminotransferase U/L Specimen (Source) Anatomical Collection Method Collection Time Re ceived Time Location / / Volume Laterality 06/11/2008 4:59 PM GRANULATOR OPERATOR Vane Zarate MD LAB_1 Performing Organization Address City/State/ZIP Code Phon e Number HP CONVERSION Amylase (06/11/2008 4:59 PM GRANULATOR OPERATOR) P athologist Signature Amylase Serum 53 25 - 115 HP CONVERSION U/L Specimen (Source) Anatomical Collection Method Collection Time Re ceived Time Location / / Volume Laterality 06/11/2008 4:59 PM GRANULATOR OPERATOR Vane Zarate MD LAB_1 Performing Organization Address City/[facility]/ZIP Code Phon e Number HP CONVERSION AST (06/11/2008 4:59 PM GRANULATOR OPERATOR) Patholo gist Method Time Signature Aspartate 45 0 - 45 HP CONVERSION Aminotransferase U/L Specimen (Source) Anatomical Collection Method Collection Time Re ceived Time Location / / Volume Laterality 06/11/2008 4:59 PM GRANULATOR OPERATOR Vane Zarate MD LAB_1 Performing Organization Address City/[facility]/ZIP Code Phon e Number HP CONVERSION Electrolytes (NA, K, CL, Bicarb) (06/11/2008 4:59 PM GRANULATOR OPERATOR) P athologist Signature Sodium 139 137 - 147 HP CONVERSION mEq/L Potassium 4.3 3.5 - 5.2 HP CONVERSION mEq/L Chloride 104 98 - 110 HP CONVERSION mEq/L Bicarbonate 26 23 - 33 HP CONVERSION mmol/L Specimen (Source) Anatomical Collection Method Collection Time Re ceived Time Location / / Volume Laterality 06/11/2008 4:59 PM GRANULATOR OPERATOR Vane Zarate MD LAB_1 Performing Organization Address City/[facility] Code Phon e Number HP CONVERSION Valproic Acid (Depakene) (06/11/2008 4:59 PM GRANULATOR OPERATOR) Analysis Performed At Patho logist Time Signature Time Last Dose 0900 No normal HP CONVERSION Valproic Acid range Date Last Dose 12ZPC91 No normal HP CONVERSION Valproic Acid range Valproic 86 50 - 100 HP CONVERSION Acid/Depakene ug/mL (Valp) Specimen (Source) Anatomical Collection Method Collection Time Re ceived Time Location / / Volume Laterality 06/11/2008 4:59 PM GRANULATOR OPERATOR Vane Zarate MD LAB_1 Performing Organization Address City/State/ZIP Code Phon e Number HP CONVERSION documented in this encounter Visit Diagnoses Not on filedocumented in this encounter Care Teams Cnc Manager Relationship Specialty Start Date End Date Antonio Jerez MD PCP - General 07/25/10 12/22/10 [address] [place] [address] documented as of this encounter
--- OUTSIDE RECORDS SUMMARY | 2022-03-14 18:53 | XMS_ITS | Encounter Summary ---
:1970 Author [facility] Address [address] [place] [address] Care Team Providers Name Role Phone Antonio Jerez MD Primary Care Provider Encounter Details Date Type Department Care Team Description 02/24/2007 Dynamicist Only CONVERSION Kya Hewitt RN Social History [...] 2249 Note Time: 02/24/07 0001 Status: Signed Outsole Skiver: Niko Barrios prior auth for [facility] approved #[id number] for as long as pt stays on plan-pharmacy called COUNSELOR documented in this encounter Plan of Treatment Not on filedocumented as of this encounter Visit Diagnoses Not on filedocumented in this encounter Care Teams Polysomnograph Tech Relationship Specialty Start Date End Date Antonio Jerez MD PCP - General 07/25/10 12/22/10 [address] [place] [address] documented as of this encounter
--- OUTSIDE RECORDS SUMMARY | 2022-03-14 18:53 | XMS_ITS | Encounter Summary ---
:1970 Author Organization [facility] Address [address], [place] [address] Care Team Providers Name Role Phone Antonio Jerez MD Primary Care Provider Encounter Details Date Type Department Care Team Description 02/28/2007 PN Conversion Only [place] CONVERSION Antonio Jerez, [address] [facility] [place] [address] [address] [facility] [place] [address] (Wo rk) Social History Tobacco Use Types Packs/Day Years Used Date Smoking Tobacco: Never Assessed Sex Assigned at Date Recorded Not on file documented as of this encounter Plan of Treatment Not on filedocumented as of this encounter Procedures Procedure Name Priority Date/Time Associated Comments Diagnosis THYROID STIMULATING Routine 02/28/2007 2:40 PM Re sults for this HORMONE MASONRY CONTRACTOR ADMINISTRATOR procedure are i n the results section. documented in this encounter Results Thyroid Stimulating Hormone (02/28/2007 2:40 PM MASONRY CONTRACTOR ADMINISTRATOR) athologist Signature Thyroid 1.50 0.20 - HP CONVERSION Stimulating 4.50 Hormone uIU/mL Specimen (Source) Anatomical Collection Method Collection Time Re ceived Time Location / / Volume Laterality 02/28/2007 2:40 PM MASONRY CONTRACTOR ADMINISTRATOR Antonio Jerez MD LAB_1 Performing Organization Address City/State/ZIP Code Phon e Number HP CONVERSION documented in this encounter Visit Diagnoses Not on filedocumented in this encounter Care Teams Prepress Specialist Relationship Specialty Start Date End Date Antonio Jerez MD PCP - General 07/25/10 12/22/10 [address] [place] [address] documented as of this encounter
--- OUTSIDE RECORDS SUMMARY | 2022-03-14 18:53 | XMS_ITS | Encounter Summary ---
:1970 Author Organization [facility] Address [address], [place] [address] Care Team Providers Name Role Phone Antonio Jerez MD Primary Care Provider Encounter Details Date Type Department Care Team Description 06/09/2008 Machine Clothing Worker Only [place] [address] [facility] [address] [address] (Wo rk) Social History Tobacco Use Types [...] 1057 Note Time: 06/09/08 0001 Status: Signed Flight Control Manager: Noemy Meade MD (Physician) Pt called senior sustainability consultant this AM at 5:36 AM wanting to [...] on Tue which he agreed to do. N OPERATIONS SUPERVISOR documented in this encounter Plan of Treatment Not on filedocumented as of this encounter Visit Diagnoses Not on filedocumented in this encounter Care Teams Sliver Lap Machine Tender Relationship Specialty Start Date End Date Antonio Jerez MD PCP - General 07/25/10 12/22/[address] [place] [address] documented as of this encounter
--- OUTSIDE RECORDS SUMMARY | 2022-03-14 18:53 | XMS_ITS | Encounter Summary ---
:1970 Author [facility] Address [address] [place] [address] Care Team Providers Name Role Phone Antonio Jerez MD Primary Care Provider Encounter Details Date Type Department Care Team Description 08/11/2006 Administrative Services Coordinator Only CONVERSION Kya Hewitt RN Social History [...] 1851 Note Time: 08/11/06 0001 Status: Signed Sound Technician Supervisor: Niko Barrios prior auth for Zyprexa 5 mg approved through 08/11/07 #[id number] Pharmacy called CLERK documented in this encounter Plan of Treatment Not on filedocumented as of this encounter Visit Diagnoses Not on filedocumented in this encounter Care Teams Gear Coding Machine Operator Relationship Specialty Start Date End Date Antonio Jerez MD PCP - General 07/25/10 12/22/10 [address] [facility] [place] [address] documented as of this encounter
--- OUTSIDE RECORDS SUMMARY | 2022-03-14 18:53 | XMS_ITS | Encounter Summary ---
:1970 Author [facility] Address [address] [place] [address] Care Team Providers Name Role Phone Antonio Jerez MD Primary Care Provider Encounter Details Date Type Department Care Team Description 01/17/2009 Tire Care Manager Only CONVERSION CONVERSION Vane Zarate MD [address] [place], [place] [address] (Wo rk) Social History [...] 1640 Note Time: 01/17/09 0001 Status: Signed Bow Maker Gift Wrapping: Vane Zarate MD (Physician) blood work shows elevated ALT and GGT, and depakote level of 105. Advised patient we may need to look at different mood stabilizer. documented in this encounter Plan of Treatment Not on filedocumented as of this encounter Visit Diagnoses Not on filedocumented in this encounter Care Teams Auto Suspension And Steering Mechanic Relationship Specialty Start Date End Date Antonio Jerez MD PCP - General 07/25/10 12/22/10 [address] [place] [address] documented as of this encounter
--- OUTSIDE RECORDS SUMMARY | 2022-03-14 18:53 | XMS_ITS | Encounter Summary ---
:1970 Author Organization [facility] Address [address], [place] [address] Care Team Providers Name Role Phone Antonio Jerez MD Primary Care Provider Encounter Details Date Type Department Care Team Description 03/06/2009 PN Conversion Only Vane Cox MD [address] [place] [address] [address] [place] [address] Social History Tobacco Use Types Packs/Day Years Used Date Smoking Tobacco: Never Assessed Sex Assigned at Date Recorded Not on file documented as of this encounter Plan of Treatment Not on filedocumented as of this encounter Procedures Procedure Name Priority Date/Time Associated Diagnosis Comme nts AMYLASE Routine 03/06/2009 7:50 PM Results f or this CARBURETOR EXPERT procedure are i n the results section. GT (GAMMA GT) Routine 03/06/2009 7:50 PM Results for this CARBURETOR EXPERT procedure are i n the results section. ALT (SGPT) Routine 03/06/2009 7:50 PM Results f or this CARBURETOR EXPERT procedure are i n the results section. AST Routine 03/06/2009 7:50 PM Results f or this CARBURETOR EXPERT procedure are i n the results section. ALKALINE Routine 03/06/2009 7:50 PM Results f or this PHOSPHATASE, TOTAL CARBURETOR EXPERT procedure are in the results section. documented in this encounter Results (ABNORMAL) GT (Gamma GT) (03/06/2009 7:50 PM CARBURETOR EXPERT) [facility] Method Time Signature Gamma-Glutamyl 169 (H) 1 - 48 U/L HP CONVERSION Transferase Specimen (Source) Anatomical Collection Method Collection Time Re ceived Time Location / / Volume Laterality 03/06/2009 7:50 PM CARBURETOR EXPERT Vane Zarate MD LAB_1 Performing Organization Address City/[facility]/ZIP Code Phon e Number HP CONVERSION (ABNORMAL) AST (03/06/2009 7:50 PM CARBURETOR EXPERT) [facility] gist Method Time Signature Aspartate 62 (H) 0 - 45 HP CONVERSION Aminotransferase U/L Specimen (Source) Anatomical Collection Method Collection Time Re ceived Time Location / / Volume Laterality 03/06/2009 7:50 PM CARBURETOR EXPERT Vane Zarate MD LAB_1 Performing Organization Address City/[facility]/ZIP Code Phon e Number HP CONVERSION Amylase (03/06/2009 7:50 PM CARBURETOR EXPERT) athologist Signature Amylase Serum 58 25 - 115 HP CONVERSION U/L Specimen (Source) Anatomical Collection Method Collection Time Re ceived Time Location / / Volume Laterality 03/06/2009 7:50 PM CARBURETOR EXPERT Vane Zarate MD LAB_1 Performing Organization Address City/[facility]/ZIP Code Phon e Number HP CONVERSION (ABNORMAL) ALT (SGPT) (03/06/2009 7:50 PM CARBURETOR EXPERT) [facility] gist Method Time Signature Alanine 58 (H) 4 - 55 HP CONVERSION Aminotransferase U/L Specimen (Source) Anatomical Collection Method Collection Time Re ceived Time Location / / Volume Laterality 03/06/2009 7:50 PM CARBURETOR EXPERT Vane Zarate MD LAB_1 Performing Organization Address City/[facility]/ZIP Code Phon e Number HP CONVERSION Alkaline Phosphatase, Total (03/06/2009 7:50 PM CARBURETOR EXPERT) athologist Signature Alk Phos 63 25 - 135 U/L HP CONVERSION Specimen (Source) Anatomical Collection Method Collection Time Re ceived Time Location / / Volume Laterality 03/06/2009 7:50 PM CARBURETOR EXPERT Vane Zarate MD LAB_1 Performing Organization Address City/State/ZIP Code Phon e Number HP CONVERSION documented in this encounter Visit Diagnoses Not on filedocumented in this encounter Care Teams Income Tax Advisor Relationship Specialty Start Date End Date Antonio Jerez MD PCP - General 07/25/10 12/22/[address] [place] [address] documented as of this encounter
--- OUTSIDE RECORDS SUMMARY | 2022-03-14 18:54 | XMS_ITS | Encounter Summary ---
:1970 Author Organization [facility]ly [facility] Address [address] [place] [address] Care Team Providers Name Role Phone Michel Daniel MD Primary Care Provider Encounter Details Date Type Department Care Team Description 05/19/2005 Office Visit [facility] Michel Daniel MD [address] [facility] . [address] [place] [address] [place] [address] [phone] (Wo rk) Social History Tobacco Use Types Packs/Day Years Used Date Smoking Tobacco: Never Assessed Sex Assigned at Date Recorded Not on file documented as of this encounter Last Filed Vital Signs Vital Sign Reading Time Taken Comments Blood Pressure 132/84 05/19/2005 1:00 PM AUDIO INSTALLER Pulse - - Temperature 37.1 ??C (98.8 ??F) 05/19/2005 1:00 PM AUDIO INSTALLER C: 37 .1 C Respiratory Rate - - Oxygen Saturation - - Inhaled Oxygen Concentration - - Weight 97.1 kg (213 lb 15.7 oz) 05/19/2005 1:00 PM AUDIO INSTALLER C: 97.1kg Height - - Body Mass Index - - documented in this encounter Progress Notes Michel Daniel MD - 05/19/2005 12:01 AM CST Progress Notes signed by Michel Daniel MD at 05/21/05 0715 Author: Michel Daniel MD Service: (none) Author Type: Physician Filed: 08/14/10 0947 Note Time: 05/19/05 0001 Status: Signed Customs And Border Protection Inspector: Michel Daniel MD (Physician) NAME: SHARLENE VARNER MR: [id number] ACCT: [id number] VISIT: [id number] DICTATING CLINICIAN: MICHEL DANIEL MD JOB: [id number] CLINIC PROGRESS NOTE DATE OF VISIT: 05/19/2005 [...] fluids, recheck p.r.n. 2. Influenza vaccine today. AAS:[id number] C: 05/20/05 09:24 DOCUMENT: [id number] O INSTALLER documented in this encounter Plan of Treatment Not on filedocumented as of this encounter Visit Diagnoses Not on filedocumented in this encounter Care Teams Hydrostatic Tubing Tester Relationship Specialty Start Date End Date Michel Daniel MD PCP - General 07/25/10 12/22/10 [address] [place] [address] documented as of this encounter
--- OUTSIDE RECORDS SUMMARY | 2022-03-14 18:54 | XMS_ITS | Encounter Summary ---
:1970 Author Organization [facility] Address [address] [place] [address] Care Team Providers Name Role Phone Antonio Jerez MD Primary Care Provider Encounter Details Date Type Department Care Team Description 03/23/2006 PN Conversion Only [place] CONVERSION Antonio Jerez, [address] [facility] [place] [address] [address] [facility] [place] [address] (Wo rk) Social History Tobacco Use Types Packs/Day Years Used Date Smoking Tobacco: Never Assessed Sex Assigned at Date Recorded Not on file documented as of this encounter Plan of Treatment Not on filedocumented as of this encounter Procedures Procedure Name Priority Date/Time Associated Comments Diagnosis GLUCOSE Routine 03/23/2006 1:50 PM Results f or this SHIPBUILDING DRAFTSPERSON procedure are i n the results section. HGB A1C Routine 03/23/2006 1:50 PM Results f or this SHIPBUILDING DRAFTSPERSON procedure are i n the results section. HOSPITAL OBTAINED Routine 03/23/2006 1:48 PM Resu lts for this ANATOMICAL PATHOLOGY SHIPBUILDING DRAFTSPERSON procedu re are in REQUEST the results section. SURGICAL YADY VALVERDE Routine 03/23/2006 1:43 PM Re sults for this NICOLLET SHIPBUILDING DRAFTSPERSON procedure are i n the results section. documented in this encounter Results (ABNORMAL) Glucose (03/23/2006 1:50 PM SHIPBUILDING DRAFTSPERSON) P athologist Signature Lab Glucose 120 (H) 60 - 100 HP CONVERSION mg/dL Specimen (Source) Anatomical Collection Method Collection Time Re ceived Time Location / / Volume Laterality 03/23/2006 1:50 PM SHIPBUILDING DRAFTSPERSON Antonio Jerez MD LAB_1 Performing Organization Address City/[facility]/ZIP Code Phon e Number HP CONVERSION Hgb A1c (03/23/2006 1:50 PM SHIPBUILDING DRAFTSPERSON) athologist Signature HGB A1C 5.4 <6.0 % HP CONVERSION Specimen (Source) Anatomical Collection Method Collection Time Re ceived Time Location / / Volume Laterality 03/23/2006 1:50 PM SHIPBUILDING DRAFTSPERSON Antonio Jerez MD LAB_1 Performing Organization Address City/State/ZIP Code Phon e Number HP CONVERSION Anatomical Pathology Request (03/23/2006 1:48 PM SHIPBUILDING DRAFTSPERSON) athologist Signature Surgical Path Done No normal HP CONVERSION Ord range Specimen (Source) Anatomical Collection Method Collection Time Re ceived Time Location / / Volume Laterality 03/23/2006 1:48 PM SHIPBUILDING DRAFTSPERSON Antonio Jerez MD LAB_1 Performing Organization Address [facility] Phon e Number HP CONVERSION Pathology Report (03/23/2006 1:43 PM SHIPBUILDING DRAFTSPERSON) [facility] gist Method Time Signature Surgical SEE TEXT No normal HP CONVERSION Pathology range Comment: Patient: SHARLENE VARNER T ?S URGICAL PATHOLOGY REPORT Pathology # ??[id number] ?Date Obtained: ? Date Received: DIAGNOSIS: ?Skin, groin: ?- ??Benign squamous keratosis. ?Bi Alaniz M.D. ?(electronic signature) TRH/TRH/kmr Date of Report: 03/25/06 Pathology # ??[id number] ?Date Obtained: ? Date Received: ORGAN/TISSUE SITE: ?Groin GROSS DESCRIPTION: ?Received in formalin is a 0.3 x 0. 3 x 0.2 cm irregular whipple-pink skin. ??The ?surface of the skin displays a 0.2 cm pale lesion. ??The skin is inked and ?submitted in toto in cassette [id number]. MJL/dke MICROSCOPIC DESCRIPTION: ?Sections examined show skin with h yperkeratosis, hypergranulosis and ?acanthosis. ??There is no evidence of malignancy. ??No viral changes are ?seen. Specimen (Source) Anatomical Collection Method Collection Time Re ceived Time Location / / Volume Laterality 03/23/2006 1:43 PM SHIPBUILDING DRAFTSPERSON Antonio Jerez MD LAB_1 Performing Organization Address City/State/ZIP Code Phon e Number HP CONVERSION documented in this encounter Visit Diagnoses Not on filedocumented in this encounter Care Teams Library Cataloging Technician Relationship Specialty Start Date End Date Antonio Jerez MD PCP - General 07/25/10 12/22/10 [address] [place] [address] documented as of this encounter
--- OUTSIDE RECORDS SUMMARY | 2022-03-14 18:54 | XMS_ITS | Encounter Summary ---
:1970 Author [facility] Address [address] [place] [address] Care Team Providers Name Role Phone Antonio Jreez MD Primary Care Provider Encounter Details Date Type Department Care Team Description 10/08/2005 PN Conversion Only [facility] N Antonio Jerez, [address] [facility] [place] [address] [address] [place], [place] [address] (Wo rk) Social History Tobacco Use [...] filedocumented in this encounter Care Teams Medication Reconciliation Technician Relationship Specialty Start Date End Date Antonio Jerez MD PCP - General 07/25/10 12/22/[address] [facility] [place] [address] documented as of this encounter
--- OUTSIDE RECORDS SUMMARY | 2022-03-14 18:54 | XMS_ITS | Encounter Summary ---
:1970 Author Organization [facility] Address [address] [address] Care Team Providers Name Role Phone Antonio Jerez MD Primary Care Provider Encounter Details Date Type Department Care Team Description 09/17/[address] [facility] Armida Mtz MD [address] [facility] . [address] [place] [address] [place] [address] Social History Tobacco Use Types Packs/Day Years [...] signed by Armida Mtz MD at 09/18/05 1640 Author: Armida Mtz MD Service: (none) Author Type: Physician Filed: 08/14/10 1219 Note Time: 09/17/05 0001 Status: Signed Summer Law Associate: Armida Mtz MD (Physician) NAME: SHARLENE VARNER MR: [id number] ACCT: [id number] VISIT: [id number] DICTATING CLINICIAN: ARMIDA MTZ MD JOB: [id number] CLINIC PROGRESS NOTE DATE OF VISIT: 09/17/2005 [...] up with his psychiatrist Dr. Kevin Hanson DRL:[id number] C: 09/17/05 20:32 DOCUMENT: [id number] documented in this encounter Plan of Treatment Not on filedocumented as of this encounter Visit Diagnoses Not on filedocumented in this encounter Care Teams Transaction Advisory Services Manager Relationship Specialty Start Date End Date Antonio Jerez MD PCP - General 07/25/10 12/22/10 [address] [facility] [place] [address] documented as of this encounter
--- OUTSIDE RECORDS SUMMARY | 2022-03-14 18:54 | XMS_ITS | Encounter Summary ---
:1970 Author Organization [facility] Address [address] [place] [address] Care Team Providers Name Role Phone Antonio Jerez MD Primary Care Provider Encounter Details Date Type Department Care Team Description 07/31/2003 PN Conversion Only Kevin Blackburn, [address] [place] [address] [facility] [address] [place] [address] Social History Tobacco Use Types [...] CONVERSION Valproic Acid range Date Last Dose [id number] No normal HP CONVERSION Valproic Acid range [...] on filedocumented in this encounter Care Teams Spout Liner Helper Relationship Specialty Start Date End Date Antonio Jerez MD PCP - General 07/25/10 12/22/10 [address] [facility] [place] [address] documented as of this encounter
--- OUTSIDE RECORDS SUMMARY | 2022-03-14 18:54 | XMS_ITS | Encounter Summary ---
:1970 Author Organization [facility] Address [address] [place] [address] Care Team Providers Name Role Phone Antonio Jerez MD Primary Care Provider Encounter Details Date Type Department Care Team Description 03/20/2003 PN Conversion Only AFOGNAK CONVERSION 1415 [place] [address] Social History Tobacco Use Types Packs/Day Years Used Date Smoking Tobacco: Never Assessed Sex Assigned at Date Recorded Not on file documented as of this encounter Plan of Treatment Not on filedocumented as of this encounter Visit Diagnoses Not on filedocumented in this encounter Care Teams Volunteer Patient Representative Relationship Specialty Start Date End Date Antonio Jerez MD PCP - General 07/25/10 12/22/10 [address]15 [place], [place] [address] documented as of this encounter
--- OUTSIDE RECORDS SUMMARY | 2022-03-14 18:54 | XMS_ITS | Encounter Summary ---
:1970 Author Organization [facility] Address [address] [place] [address] Care Team Providers Name Role Phone Michel Daniel MD Primary Care Provider Encounter Details Date Type Department Care Team Description 09/15/2005 Office Visit [facility] Michel Daniel MD 1415 [facility] . [address]15 [place] [address] [place] [address] [phone] (Wo rk) Social History Tobacco Use Types [...] encounter Progress Notes Michel Daniel MD - 09/15/2005 12:01 AM CDT Progress Notes signed by Michel Daniel MD at 09/26/05 1710 Author: Michel Daniel MD Service: (none) Author Type: Physician Filed: 08/14/10 1217 Note Time: 09/15/05 0001 Status: Signed Litigation Associate: Michel Daniel MD (Physician) NAME: SHARLENE VARNER MR: [id number] ACCT: [id number] VISIT: [id number] DICTATING CLINICIAN: MICHEL DANIEL MD JOB: [id number] CLINIC PROGRESS NOTE DATE OF VISIT: 09/15/2005 [...] ASSESSMENT: 1. Skin tag. 2. Bipolar disorder. AAS:[id number] C: 09/16/05 12:42 DOCUMENT: [id number] documented in this encounter Plan of Treatment Not on filedocumented as of this encounter Visit Diagnoses Not on filedocumented in this encounter Care Teams Asset Specialist Relationship Specialty Start Date End Date Michel Daniel MD PCP - General 07/25/10 12/22/10 1415 [facility] [place] [address] documented as of this encounter
--- OUTSIDE RECORDS SUMMARY | 2022-03-14 18:54 | XMS_ITS | Encounter Summary ---
:1970 Author Organization [facility] Address [address], [place] [address] Care Team Providers Name Role Phone Antonio Jerez MD Primary Care Provider Encounter Details Date Type Department Care Team Description 07/09/2003 Landscaper Helper Only CONVERSION CONVERSION Delphine Malin i, APRN, CNS [address] [place] [address] (Wo rk) Social History Tobacco [...] 192 Note Time: 07/09/03 0001 Status: Signed Flood Control Engineer: SHERIF Bell (Clinical Nurse Specialist) Pt call, [...] f/u with Dr. Aquino in two weeks. GE COORDINATOR documented in this encounter Plan of Treatment Not on filedocumented as of this encounter Visit Diagnoses Not on filedocumented in this encounter Care Teams Corporate Investigator Relationship Specialty Start Date End Date Antonio Jerez MD PCP - General 07/25/10 12/22/10 1415 [facility] [place] [place] [address] documented as of this encounter
--- OUTSIDE RECORDS SUMMARY | 2022-03-14 18:54 | XMS_ITS | Encounter Summary ---
:1970 Author Organization [facility] Address [address] [place] [address] Care Team Providers Name Role Phone Antonio Jerez MD Primary Care Provider Encounter Details Date Type Department Care Team Description 07/17/2003 Automotive Customer Experience Advisor Only CONVERSION CONVERSION Dave Aquino MBBS [address] [place], [place] [address] (Wo rk) Social History Tobacco Use Types Packs/Day Years Used Date Smoking Tobacco: Never Assessed Sex Assigned at Date Recorded Not on file documented as of this encounter Progress Notes Lyndsay Aquino MBBS - 07/17/2003 12:01 AM CST Progress Notes signed by REINA Olivia at 07/17/03 0948 Author: REINA Olivia Service: (none) Author Type: Resource Filed: 08/13/10 1931 Note Time: 07/17/03 0001 Status: Signed Senior Pensions Administrator: REINA Olivia (Resource) VPA 119 from 07/03/03. No action needed at current time. RY RAISER documented in this encounter Plan of Treatment Not on filedocumented as of this encounter Visit Diagnoses Not on filedocumented in this encounter Care Teams Network Security Administrator Relationship Specialty Start Date End Date Antonio Jerez MD PCP - General 07/25/10 12/22/10 [address] [place] [address] documented as of this encounter
--- OUTSIDE RECORDS SUMMARY | 2022-03-14 18:54 | XMS_ITS | Encounter Summary ---
:1970 Author Organization [facility] Address [address], [place] [address] Care Team Providers Name Role Phone Antonio Jerez MD Primary Care Provider Encounter Details Date Type Department Care Team Description 03/23/2006 PN Conversion Only [place] CONVERSION Antonio Jerez, [address] [place] [address] [address] [place] [phone] (Wo rk) Social History Tobacco Use Types Packs/Day Years Used Date Smoking Tobacco: Never Assessed Sex Assigned at Date Recorded Not on file documented as of this encounter Plan of Treatment Not on filedocumented as of this encounter Visit Diagnoses Not on filedocumented in this encounter Care Teams Graphic Artist Relationship Specialty Start Date End Date Antonio Jerez MD PCP - General 07/25/10 12/22/10 [address] [place] [address] documented as of this encounter
--- OUTSIDE RECORDS SUMMARY | 2022-03-14 18:54 | XMS_ITS | Encounter Summary ---
:1970 Author Organization [facility] Address [address] [place] [address] Care Team Providers Name Role Phone Michel Daniel MD Primary Care Provider Encounter Details Date Type Department Care Team Description 10/13/2005 Office Visit [facility] Michel Daniel MD 1415 [facility] . [address] [place] [address] [place] [address] [phone] (Wo rk) Social History Tobacco Use Types [...] encounter Progress Notes Michel Daniel MD - 10/13/2005 12:01 AM CDT Progress Notes signed by Michel Daniel MD at 10/18/05 0652 Author: Michel Daniel MD Service: (none) Author Type: Physician Filed: 08/14/10 1249 Note Time: 10/13/05 0001 Status: Signed Revenue Cycle Analyst: Michel Daniel MD (Physician) NAME: SHARLENE VARNER MR: [id number] ACCT: [id number] VISIT: [id number] DICTATING CLINICIAN: MICHEL DANIEL MD JOB: [id number] CLINIC PROGRESS NOTE DATE OF VISIT: 10/13/2005 [...] them also to instruct him on diet. AAS:[id number] C: 10/14/05 13:15 DOCUMENT: [id number] documented in this encounter Plan of Treatment Not on filedocumented as of this encounter Visit Diagnoses Not on filedocumented in this encounter Care Teams Washer Operator Relationship Specialty Start Date End Date Michel Daniel MD PCP - General 07/25/10 12/22/10 1415 [facility] [address] documented as of this encounter
--- OUTSIDE RECORDS SUMMARY | 2022-03-14 18:54 | XMS_ITS | Encounter Summary ---
:1970 Author Organization [facility] Address [address], [place] [address] Care Team Providers Name Role Phone Antonio Jerez MD Primary Care Provider Encounter Details Date Type Department Care Team Description 10/04/2005 PN Conversion Only [place] CONVERSION Antonio Jerez, 14[address] [facility] [place] [address] 1417 [facility] [place] [address] (Wo rk) Social History Tobacco [...] filedocumented in this encounter Care Teams Commercial Representative Relationship Specialty Start Date End Date Antonio Jerez MD PCP - General 07/25/10 12/22/10 1415 [facility] [place] [address] documented as of this encounter
--- OUTSIDE RECORDS SUMMARY | 2022-03-14 18:54 | XMS_ITS | Encounter Summary ---
:1970 Author Organization [facility] Address [address] [place] [address] Care Team Providers Name Role Phone Antonio Jerez MD Primary Care Provider Encounter Details Date Type Department Care Team Description 08/04/2006 PN Conversion Only Kevin Blackburn, [address] [facility] [place] [address] [facility] [address] [place] [address] Social History Tobacco Use Types [...] (ABNORMAL) ALT (SGPT) (08/04/2006 8:30 AM CDT) [facility] gist Method Time Signature Alanine 59 (H) 4 - 55 HP CONVERSION Aminotransferase U/L Specimen (Source) Anatomical Collection Method Collection Time Re ceived Time Location / / Volume Laterality 08/04/2006 8:30 AM CDT Kevin Hanson MD LAB_1 Performing Organization Address City/State/ZIP Code Phon e Number HP CONVERSION (ABNORMAL) Valproic Acid (Depakene) (08/04/2006 8:30 AM CDT) Analysis Performed At [facility] Time Signature Time Last Dose 2,100 No normal HP CONVERSION Valproic Acid range Date Last Dose 50SSC07 No normal HP CONVERSION Valproic Acid range [...] filedocumented in this encounter Care Teams Hematology Technician Relationship Specialty Start Date End Date Antonio Jerez MD PCP - General 07/25/10 12/22/10 [facility] [place] [address] documented as of this encounter
--- OUTSIDE RECORDS SUMMARY | 2022-03-14 18:54 | XMS_ITS | Encounter Summary ---
:1970 Author Organization [facility] Address [address] [place] [address] Care Team Providers Name Role Phone Antonio Jerez MD Primary Care Provider Encounter Details Date Type Department Care Team Description 08/17/2004 Office Visit [facility] Olga Childs PA-C 1415 [facility] . [address] [place] [address] [place] [address] [phone] (Wo rk) Social History Tobacco Use Types Packs/Day Years Used Date Smoking Tobacco: Never Assessed Sex Assigned at Date Recorded Not on file documented as of this encounter Progress Notes Olga Peterson V - 08/17/2004 12:01 AM CDT Progress Notes signed by Olga Vicente PA-C at 09/13/04 0841 Author: Olga Vicente PA-C Service: (none) Author Type: Physician Paste Mixer Filed: 08/14/10 0431 Note Time: 08/17/04 0001 Status: Signed Welt Stitch Cleaner: Olga Vicente PA-C (Physician Paste Mixer) NAME: SHARLENE VARNER MR: [id number] ACCT: [id number] VISIT: [id number] DICTATING CLINICIAN: KEREN CAMARGO JOB: [id number] CLINIC PROGRESS NOTE DATE OF VISIT: 08/17/2004 SUBJECTIVE: : 1970. Bmgchm-ntfd-giww-old male comes in concerned about sinus congestion [...] Obese. ASSESSMENT: Cough, bronchitis, sinusitis. PLAN: Mucinex ahpo-ysy-rwndick twice daily for the next 10 days. [...] do not improve would recommend chest x-ray. MVT:[id number] C: 08/17/04 13:16 DOCUMENT: [id number] documented in this encounter Plan of Treatment Not on filedocumented as of this encounter Visit Diagnoses Not on filedocumented in this encounter Care Teams Office Communication Professor Relationship Specialty Start Date End Date Antonio Jerez MD PCP - General 07/25/10 12/22/10 0[address] [facility] [place] [address] documented as of this encounter
--- OUTSIDE RECORDS SUMMARY | 2022-03-14 18:54 | XMS_ITS | Encounter Summary ---
:1970 Author Organization [facility] Address [address] [place] [address] Care Team Providers Name Role Phone Antonio Jerez MD Primary Care Provider Encounter Details Date Type Department Care Team Description 08/17/2004 PN Conversion Only [place] CONVERSION 1415 [place] [address] Social History Tobacco Use Types Packs/Day Years [...] 0000 Note Time: 11/15/05 0001 Status: Signed Assembly Detailer: Екатерина Goetz RN (Registered Nurse) NAME: NATALI KRISHNAMURTHY MR: [id number] ACCT: DICTATING CLINICIAN: ЕКАТЕРИНА GOETZ RN JOB: [id number] MENTAL HEALTH ONLINE PHONE CALL DATE: 11/15/05. [...] not want to restart any other medication. :[id number] C: 11/16/05 11:54 DOCUMENT: [id number] Ashley Gaines RN - 10/07/2005 12:01 AM CDT Phone Note signed by Ashley Denise RN at 03/01/06 1604 Author: Ashley Denise RN Service: (none) Author Type: Registered Nurse Filed: 08/17/04 0000 Note Time: 10/07/05 0001 Status: Signed Assembly Detailer: Ashley Denise RN (Registered Nurse) NAME: SHARLENE KRISHNAMURTHY MR: ACCT: DICTATING CLINICIAN: Bac[facility] JOB: [id number] MENTAL HEALTH ONLINE PHONE CALL DATE: 10/07/05. This is a patient of Dr. Hanson. Patient called in stating he is taking the Zyprexa 5 mg b.i.d. double what he and Dr. Hanson had talked about and was feeling better with this. Dr. Hanson informed. [facility] [address]:[id number] C: 10/07/05 20:08 DOCUMENT: [id number] RUG CLEANER Екатерина Goetz RN - 10/05/2005 12:01 AM CDT Phone Note signed by Екатерина Goetz RN at 10/08/05 1416 Author: Екатерина Goetz RN Service: (none) Author Type: Registered Nurse Filed: 08/17/04 0000 Note Time: 10/05/05 0001 Status: Signed Assembly Detailer: Екатерина Goetz RN (Registered Nurse) NAME: NATALI KRISHNAMURTHY MR: [id number] ACCT: DICTATING CLINICIAN: ЕКАТЕРИНА GOETZ RN JOB: [id number] [facility] ONLINE PHONE CALL DATE: . SUBJECTIVE AND [...] a follow up appointment scheduled for 10/29. MC:[id number] C: 10/05/05 13:39 DOCUMENT: [id number] Екатерина Goetz RN - 09/30/2005 12:01 AM CDT Phone Note signed by Екатерина Goetz RN at 10/08/05 1413 Author: Екатерина Goetz RN Service: (none) Author Type: Registered Nurse Filed: 08/17/04 0000 Note Time: 09/30/05 0001 Status: Signed Assembly Detailer: Екатерина Goetz RN (Registered Nurse) NAME: NATALI LINDA MR: [id number] ACCT: DICTATING CLINICIAN: ЕКАТЕРИНА GOETZ RN JOB: [id number] [facility] ONLINE PHONE CALL DATE: 09/30/05. . SUBJECTIVE/OBJECTIVE: The patient phoned in stating that he had decreased to 5 mg of Zyprexa at night. He states that he has been quite calm lately. He has been eliminating caffeine from his diet. He states he is attending the day treatment program at [facility] which he really likes. He [...] has a followup appointment scheduled for 10/29. MC:[id number] C: 09/30/05 21:47 DOCUMENT: [id number] Farida Malin APRN, CNS - 09/24/2005 12:01 AM CDT Phone Note signed by SHERIF Bell at 09/27/05 0829 Author: SHERIF Bell Service: (none) Author Type: Clinical Nurse Specialist Filed: 08/17/04 0000 Note Time: 09/24/05 0001 Status: Signed Assembly Detailer: SHERIF Bell (Clinical Nurse Specialist) NAME: NATALI KRISHNAMURTHY MR: [id number] ACCT: DICTATING CLINICIAN: SHERIF COELHO JOB: [id number] [facility] ONLINE PHONE CALL DATE: : 1970. [...] I did leave Natali a message at [phone] as directed by the patient regarding this medication change. He is to call with any questions or concerns. He is to follow up with Dr. Hanson as directed. KJL:[id number] C: 09/24/05 11:46 DOCUMENT: [id number] Екатерина Goetz RN - 09/17/2005 12:01 AM CDT Phone Note signed by Екатерина Goetz RN at 10/08/05 1409 Author: Екатерина Goetz RN Service: (none) Author Type: Registered Nurse Filed: 08/17/04 0000 Note Time: 09/17/05 0001 Status: Signed Assembly Detailer: Екатерина Goetz RN (Registered Nurse) NAME: NATALI PEARL MR: [id number] ACCT: DICTATING CLINICIAN: ЕКАТЕРИНА GOETZ RN JOB: [id number] [facility] HE[facility] ONLINE PHONE CALL DATE: 09/17/05. . SUBJECTIVE/OBJECTIVE: The patient phoned from [facility] where he was seeing Dr. [...] to get further directions from Dr. Hanson. MC:[id number] C: 09/20/05 11:29 DOCUMENT: [id number] Екатерина Goetz RN - 09/02/2005 12:01 AM CDT Phone Note signed by Екатерина Goetz RN at 09/06/05 1350 Author: Екатерина Goetz RN Service: (none) Author Type: Registered Nurse Filed: 08/17/04 0000 Note Time: 09/02/05 0001 Status: Signed Assembly Detailer: Екатерина Goetz RN (Registered Nurse) NAME: SHARLENE KRISHNAMURTHY MR: [id number] ACCT: DICTATING CLINICIAN: ЕКАТЕРИНА GOETZ RN JOB: [id number] M[facility] HEALTH ONLINE PHONE CALL DATE: 09/02/05. [...] This information was given to Dr. Hanson. MC:[id number] C: 09/03/05 15:33 DOCUMENT: [id number] Farida Malin APRN, CNS - 08/31/2005 12:01 AM CDT Phone Note signed by SHERIF Bell at 09/08/05 0811 Author: SHERIF Bell Service: (none) Author Type: Clinical Nurse Specialist Filed: 08/17/04 0000 Note Time: 08/31/05 0001 Status: Signed Assembly Detailer: SHERIF Bell (Clinical Nurse Specialist) NAME: TELLYAMOL BARBER MR: [id number] ACCT: DICTATING CLINICIAN: SHERIF COELHO JOB: [id number] [facility] ONLINE PHONE CALL DATE: 08/31/2005. I will [...] back today and has met with his human services case manager. Both are feeling that he is having [...] changes. Patient is agreeable with that plan. KJL:[id number] C: 09/01/05 17:27 DOCUMENT: [id number] Farida Malin APRN, CNS - 08/25/2005 12:01 AM CDT Phone Note signed by SHERIF Bell at 08/27/05 1103 Author: SHERIF Bell Service: (none) Author Type: Clinical Nurse Specialist Filed: 08/17/04 0000 Note Time: 08/25/05 0001 Status: Signed Assembly Detailer: SHERIF Bell (Clinical Nurse Specialist) NAME: SHARLENE KRISHNAMURTHY MR: [id number] ACCT: DICTATING CLINICIAN: SHERIF COELHO JOB: [id number] MENTAL HEALTH ONLINE PHONE CALL DATE: 08/25/05. [...] he is to follow up as directed. KJL:[id number] C: 08/27/05 07:09 DOCUMENT: [id number] Екатерина Goetz RN - 08/24/2005 12:01 AM CDT Phone Note signed by Екатерина Goetz RN at 09/03/05 0803 Author: Екатерина Goetz RN Service: (none) Author Type: Registered Nurse Filed: 08/17/04 0000 Note Time: 08/24/05 0001 Status: Signed Assembly Detailer: Екатерина Goetz RN (Registered Nurse) NAME: SHARLENE KRISHNAMURTHY MR: [id number] ACCT: DICTATING CLINICIAN: ЕКАТЕРИНА GOETZ RN JOB: [id number] [facility] ONLINE PHONE CALL DATE: 08/24/05. [...] get a recommendation from Dr. Hanson tomorrow. MC:[id number] C: 08/25/05 12:23 DOCUMENT: [id number] Екатерина Goetz RN - 08/19/2005 12:01 AM CDT Phone Note signed by Екатерина Goetz RN at 08/24/05 1346 Author: Екатерина Goetz RN Service: (none) Author Type: Registered Nurse Filed: 08/17/04 0000 Note Time: 08/19/05 0001 Status: Signed Assembly Detailer: Екатерина Goetz RN (Registered Nurse) NAME: SHARLENE KRISHNAMURTHY MR: [id number] ACCT: DICTATING CLINICIAN: ЕКАТЕРИНА GOETZ RN JOB: [id number] MENTAL HEALTH ONLINE PHONE CALL DATE: 08/19/05. [...] will be making that as of today. MC:[id number] C: 08/20/05 15:20 DOCUMENT: [id number] documented in this encounter Plan of Treatment Not on filedocumented as of this encounter Visit Diagnoses Not on filedocumented in this encounter Care Teams Manager Packaging Relationship Specialty Start Date End Date Antonio Jerez MD PCP - General 07/25/10 12/22/[address] [facility] [place] [address] documented as of this encounter
--- OUTSIDE RECORDS SUMMARY | 2022-03-14 18:54 | XMS_ITS | Encounter Summary ---
:1970 Author Organization [facility] Address [address] [place] [address] Care Team Providers Name Role Phone Antonio Jerez MD Primary Care Provider Encounter Details Date Type Department Care Team Description 12/18/2004 PN Conversion Only Kevin Blackburn, [address] [facility] [place] [address] [facility] [address] [place] [place] [address] [...] on filedocumented in this encounter Care Teams Baggagemaster Relationship Specialty Start Date End Date Antonio Jerez MD PCP - General 07/25/10 12/22/10 [address] [place] [address] documented as of this encounter
--- OUTSIDE RECORDS SUMMARY | 2022-03-14 18:54 | XMS_ITS | Encounter Summary ---
:1970 Author Organization [facility] Address [address] [place] [address] Care Team Providers Name Role Phone Antonio Jerez MD Primary Care Provider Encounter Details Date Type Department Care Team Description 10/23/2004 Procedure Visit [facility] Armida Mtz MD 1415 [facility] . [address] [place] [address] A[address] [phone] [place] [address] Social History Tobacco Use Types Packs/Day Years [...] 08/14/10 0549 Note Time: 10/23/042018 Status: Signed Family Preservation Officer: Armida Mtz MD (Physician) NAME: SHARLENE VARNER MR: [id number] ACCT: [id number] VISIT: [id number] DICTATING CLINICIAN: ARMIDA MTZ MD JOB: [id number] CLINIC PROGRESS NOTE DATE OF VISIT: 10/23/2004 SUBJECTIVE: : 1970. [facility]: [id number]. The patient is here for skin tags [...] 1. Skin tags. 2. Venereal warts. PLAN: REANNA:[id number] C: 10/24/04 17:27 DOCUMENT: [id number] documented in this encounter Plan of Treatment Not on filedocumented as of this encounter Visit Diagnoses Not on filedocumented in this encounter Care Teams Crisis Mental Health Therapist Relationship Specialty Start Date End Date Antonio Jerez MD PCP - General 07/25/10 12/22/10 1415 [place] [id number] documented as of this encounter
--- OUTSIDE RECORDS SUMMARY | 2022-03-14 18:54 | XMS_ITS | Encounter Summary ---
:1970 Author Organization Replaced by [facility] Address [address] [place] [address] Care Team Providers Name Role Phone Michel Daniel MD Primary Care Provider Encounter Details Date Type Department Care Team Description 03/23/2006 Procedure Visit [facility] Michel Daniel, 1415 [facility] [place] [address] 1415 [facility] [phone] [place], [place] [address] (Wo rk) Social History [...] 1556 Note Time: 03/23/06 0001 Status: Signed Classified Ad Clerk: Michel Daniel MD (Physician) NAME: SHARLENE VARNER MR#: [id number] ACCT: [id number] VISIT: [id number] DICTATING CLINICIAN: MICHEL DANIEL MD JOB: [id number] LOC: 1202 CLINIC PROGRESS NOTE DATE OF [...] to him with these results. ASSESSMENT: PLAN: AAS:[id number] C: 03/24/06 08:07 DOCUMENT: [id number] L CABINET FINISHER documented in this encounter Plan of Treatment Not on filedocumented as of this encounter Visit Diagnoses Not on filedocumented in this encounter Care Teams Regulatory Law Specialist Relationship Specialty Start Date End Date Michel Daniel MD PCP - General 07/25/10 12/22/10 1415 [place] [address] documented as of this encounter
--- OUTSIDE RECORDS SUMMARY | 2022-03-14 18:54 | XMS_ITS | Encounter Summary ---
:1970 Author Organization [facility] Address [address] [place] [address] Care Team Providers Name Role Phone Antonio Jerez MD Primary Care Provider Encounter Details Date Type Department Care Team Description 04/03/2003 PN Conversion Only [place] CONVERSION Antonio Jerez, [address] [facility] [place] [address] [address] [facility] [place] [address] (Wo rk) Social History Tobacco Use Types Packs/Day Years Used Date Smoking Tobacco: Never Assessed Sex Assigned at Date Recorded Not on file documented as of this encounter Plan of Treatment Not on filedocumented as of this encounter Procedures Procedure Name Priority Date/Time Associated Comments Diagnosis DIFFERENTIAL RULE Routine 04/03/2003 1:55 PM Resu lts for this MANUAL EXCELLENCE LEADER procedure are i n the results section. COMPLETE BLOOD Routine 04/03/2003 1:55 PM Results for this COUNT-W/DIFF EXCELLENCE LEADER procedure are i n the results section. VALPROIC ACID Routine 04/03/2003 1:55 PM Results for this (DEPAKENE) EXCELLENCE LEADER procedure are i n the results section. ALT (SGPT) Routine 04/03/2003 1:55 PM Results f or this EXCELLENCE LEADER procedure are i n the results section. AST Routine 04/03/2003 1:55 PM Results f or this EXCELLENCE LEADER procedure are i n the results section. documented in this encounter Results Complete Blood Count-W/Diff (04/03/2003 1:55 PM EXCELLENCE LEADER) [facility] Method Time Signature White Blood Cell 5.4 [...] - HP CONVERSION Hemoglobin Conc 36.5 gm/dL [place] RDW 11.6 11.0 - HP CONVERSION 15.0 % Platelet Count 181 140 - 450 HP CONVERSION k/cmm Differential Manl Dif No normal HP CONVERSION Verify range Specimen (Source) Anatomical Collection Method Collection Time Re ceived Time Location / / Volume Laterality 04/03/2003 1:55 PM EXCELLENCE LEADER Antonio Jerez MD LAB_1 Performing Organization Address City/[facility]/ZIP Code Phon e Number HP CONVERSION (ABNORMAL) ALT (SGPT) (04/03/2003 1:55 PM EXCELLENCE LEADER) [facility] gist Method Time Signature Alanine 82 (H) 0 - 65 HP CONVERSION Aminotransferase U/L Specimen (Source) Anatomical Collection Method Collection Time Re ceived Time Location / / Volume Laterality 04/03/2003 1:55 PM EXCELLENCE LEADER Antonio Jerez MD LAB_1 Performing Organization Address City/[facility]/ZIP Code Phon e Number HP CONVERSION (ABNORMAL) AST (04/03/2003 1:55 PM EXCELLENCE LEADER) [facility] Method Time Signature Aspartate 70 (H) 0 - 45 HP CONVERSION Aminotransferase U/L Specimen (Source) Anatomical Collection Method Collection Time Re ceived Time Location / / Volume Laterality 04/03/2003 1:55 PM EXCELLENCE LEADER Antonio Jerez MD LAB_1 Performing Organization Address City/State/ZIP Code Phon e Number HP CONVERSION (ABNORMAL) Valproic Acid (Depakene) (04/03/2003 1:55 PM EXCELLENCE LEADER) Analysis Performed At Path logist Time Signature Time Last Dose 2,200 No normal HP CONVERSION Valproic Acid range Date Last Dose 83QXA32 No normal HP CONVERSION Valproic Acid range Valproic 157 (H) 50 - 100 HP CONVERSION Acid/Depakene ug/mL (Valp) Specimen (Source) Anatomical Collection Method Collection Time Re ceived Time Location / / Volume Laterality 04/03/2003 1:55 PM EXCELLENCE LEADER Antonio Jerez MD LAB_1 Performing Organization Address City/[facility] Code Phon e Number HP CONVERSION (ABNORMAL) Differential Rule Manual (04/03/2003 1:55 PM EXCELLENCE LEADER) [facility] gist Method Time Signature Neutrophils 36 (L) [...] / / Volume Laterality 04/03/2003 1:55 PM EXCELLENCE LEADER Antonio Jerez MD LAB_1 Performing Organization Address City/[facility] Phon e Number HP CONVERSION documented in this encounter Visit Diagnoses Not on filedocumented in this encounter Care Teams Butcher Apprentice Relationship Specialty Start Date End Date Antonio Jerez MD PCP - General 07/25/10 12/22/10 [facility] [place] [address] documented as of this encounter
--- OUTSIDE RECORDS SUMMARY | 2022-03-14 18:54 | XMS_ITS | Encounter Summary ---
:1970 Author Organization [facility] Address [address] [place] [address] Care Team Providers Name Role Phone Michel Danile MD Primary Care Provider Encounter Details Date Type Department Care Team Description 10/04/2005 Office Visit [facility] Michel aDniel MD [address] [facility] . [address] [place] [address] [place] [address] [phone] (Wo rk) Social History Tobacco Use Types [...] 1237 Note Time: 10/04/05 0001 Status: Signed Button Breaker: Michel Daniel MD (Physician) NAME: SHARLENE VARNER MR: [id number] ACCT: [id number] VISIT: [id number] DICTATING CLINICIAN: MICHEL DANIEL MD JOB: [id number] CLINIC PROGRESS NOTE DATE OF VISIT: 10/04/2005 [...] blood sugars periodically on and/or off Zyprexa. AAS:[id number] C: 10/05/05 10:37 DOCUMENT: [id number] documented in this encounter Plan of Treatment Not on filedocumented as of this encounter Visit Diagnoses Not on filedocumented in this encounter Care Teams Services Engineer Relationship Specialty Start Date End Date Michel Daniel MD PCP - General 07/25/10 12/22/10 [address] [place] [address] documented as of this encounter
--- OUTSIDE RECORDS SUMMARY | 2022-03-14 18:54 | XMS_ITS | Encounter Summary ---
:1970 Author Organization [facility] Address [address] [place] [address] Care Team Providers Name Role Phone Antonio Jerez MD Primary Care Provider Encounter Details Date Type Department Care Team Description 07/30/2005 PN Conversion Only Kevin Blackburn, [address] [facility] [place] [address] [facility] [address] [place] [address] Social History Tobacco Use Types [...] (ABNORMAL) ALT (SGPT) (07/30/2005 11:10 AM CDT) [facility] gist Method Time Signature Alanine 80 (H) [...] filedocumented in this encounter Care Teams Developer Programmer Analyst Relationship Specialty Start Date End Date Antonio Jerez MD PCP - General 07/25/10 12/22/10 [address] [facility] [place] [address] documented as of this encounter
--- OUTSIDE RECORDS SUMMARY | 2022-03-14 18:54 | XMS_ITS | Encounter Summary ---
:1970 Author Organization [facility] Address [address], [place] [address] Care Team Providers Name Role Phone Michel Daniel MD Primary Care Provider Encounter Details Date Type Department Care Team Description 04/03/2003 PN Conversion Only [facility] Michel Daniel , [facility] MD [address] [facility] . [address] [place] [address] [place] [address] [phone] (Wo rk) Social History Tobacco Use Types Packs/Day Years Used Date Smoking Tobacco: Never Assessed Sex Assigned at Date Recorded Not on file documented as of this encounter Progress Notes Michel Daniel MD - 04/03/2003 12:01 AM CST Progress Notes signed by Michel Daniel MD at 04/03/03 1759 Author: Michel Daniel MD Service: (none) Author Type: Physician Filed: 08/13/10 1739 Note Time: 04/03/03 0001 Status: Signed Tread Booker: Michel Daniel MD (Physician) NAME: SHARLENE VARNER MR: [id number] ACCT: [id number] VISIT: [id number] DICTATING CLINICIAN: MICHEL DANIEL MD JOB: [id number] CLINIC PROGRESS NOTE DATE OF VISIT: 04/03/2003 [...] and 100. Rustam continues to work at [employer] He is working 40 hours a week. [...] me on a p.r.n. basis. TT: CT: [id number] C: 04/03/03 17:34 DOCUMENT: [id number] OVER documented in this encounter Plan of Treatment Not on filedocumented as of this encounter Visit Diagnoses Not on filedocumented in this encounter Care Teams Vice President Commercial [employer] Relationship Specialty Start Date End Date Michel Daniel MD PCP - General 07/25/10 12/22/[address] [place], [place] [address] [address] documented as of this encounter
--- OUTSIDE RECORDS SUMMARY | 2022-03-14 18:54 | XMS_ITS | Encounter Summary ---
:1970 Author Organization [facility] Address [address] [address] Care Team Providers Name Role Phone Michel Daniel MD Primary Care Provider Encounter Details Date Type Department Care Team Description 08/09/2005 Office Visit [facility] Michel Daniel MD [address] [facility] . [address] [place] [address] [place] [address] [phone] (Wo rk) Social History Tobacco Use Types [...] 1130 Note Time: 08/09/05 0001 Status: Signed Operations Manager/Coordinator: Michel aDniel MD (Physician) NAME: SHARLENE VARNER MR: [id number] ACCT: [id number] VISIT: [id number] DICTATING CLINICIAN: MICHEL DANIEL MD JOB: [id number] CLINIC PROGRESS NOTE DATE OF VISIT: 08/09/2005 [...] Return in 4-6 weeks if not improved. AAS:[id number] C: 08/10/05 14:20 DOCUMENT: [id number] documented in this encounter Plan of Treatment Not on filedocumented as of this encounter Visit Diagnoses Not on filedocumented in this encounter Care Teams Fnp Relationship Specialty Start Date End Date Michel Daniel MD PCP - General 07/25/10 12/22/[address] [place] [address] documented as of this encounter
--- OUTSIDE RECORDS SUMMARY | 2022-03-14 18:54 | XMS_ITS | Encounter Summary ---
:1970 Author Organization [facility] Address [address], [place] [address] Care Team Providers Name Role Phone Antonio Jerez MD Primary Care Provider Encounter Details Date Type Department Care Team Description 07/16/2003 PN Conversion Only PRIOR [facility]ARR[facility] AISLINN Lyndsay Arreola, [address] [place] [address] [place] [address] (Wo rk) Social History Tobacco Use Types Packs/Day Years Used Date Smoking Tobacco: Never Assessed Sex Assigned at Date Recorded Not on file documented as of this encounter Plan of Treatment Not on filedocumented as of this encounter Procedures Procedure Name Priority Date/Time Associated Diagnosis Comme nts VALPROIC ACID Routine 07/16/2003 9:26 AM Results for this (DEPAKENE) PROFESSOR OF BIOSTATISTICS procedure are i n the results section. documented in this encounter Results (ABNORMAL) Valproic Acid (Depakene) (07/16/2003 9:26 AM PROFESSOR OF BIOSTATISTICS) P athologist Signature Valproic 119 (H) 50 - 100 HP CONVERSION Acid/Depakene ug/mL (Valp) Specimen (Source) Anatomical Collection Method Collection Time Re ceived Time Location / / Volume Laterality 07/16/2003 9:26 AM PROFESSOR OF BIOSTATISTICS Lyndsay HUANG LAB_1 Performing Organization Address City/State/ZIP Code Phon e Number HP CONVERSION documented in this encounter Visit Diagnoses Not on filedocumented in this encounter Care Teams Ladle Repairman Relationship Specialty Start Date End Date Antonio Jerez MD PCP - General 07/25/10 12/22/10 14[address] [facility] [place] [address] documented as of this encounter
--- OUTSIDE RECORDS SUMMARY | 2022-03-14 18:54 | XMS_ITS | Encounter Summary ---
:1970 Author Organization [facility] Address [address], [place] [address] Care Team Providers Name Role Phone Antonio Jerez MD Primary Care Provider Encounter Details Date Type Department Care Team Description 09/15/2005 PN Conversion Only [place] CONVERSION Antonio Jerez, [address] [place] [address] [address] [facility] [place] [address] (Wo rk) Social [...] on filedocumented in this encounter Care Teams Perinatal Technician Relationship Specialty Start Date End Date Antonio Jerez MD PCP - General 07/25/10 12/22/10 [address] [facility] [place] [address] documented as of this encounter
--- OUTSIDE RECORDS SUMMARY | 2022-03-14 18:55 | XMS_ITS | Encounter Summary ---
:1970 Author Organization [facility] Address [address] [place] [address] Care Team Providers Name Role Phone Antonio Jerez MD Primary Care Provider Encounter Details Date Type Department Care Team Description 04/19/2000 PN Conversion [place] [address] [place], [place] [address] Social History Tobacco Use Types Packs/Day Years Used Date Smoking Tobacco: Never Assessed Sex Assigned at Date Recorded Not on file documented as of this encounter Plan of Treatment Not on filedocumented as of this encounter Visit Diagnoses Not on filedocumented in this encounter Care Teams Equipment Records Supervisor Relationship Specialty Start Date End Date Antonio Jerez MD PCP - General 07/25/10 12/22/10 [address] [place], [place] [address] documented as of this encounter
--- OUTSIDE RECORDS SUMMARY | 2022-03-14 18:55 | XMS_ITS | Encounter Summary ---
:1970 Author Organization [facility] Address [address] [place] [address] Care Team Providers Name Role Phone Antonio Jerez MD Primary Care Provider Encounter Details Date Type Department Care Team Description 08/16/2000 PN Conversion [place] [address] [place], [place] [address] Social History Tobacco Use Types Packs/Day Years Used Date Smoking Tobacco: Never Assessed Sex Assigned at Date Recorded Not on file documented as of this encounter Plan of Treatment Not on filedocumented as of this encounter Visit Diagnoses Not on filedocumented in this encounter Care Teams Pourer Relationship Specialty Start Date End Date Antonio Jerez MD PCP - General 07/25/10 12/22/10 [address] [place], [place] [address] documented as of this encounter
--- OUTSIDE RECORDS SUMMARY | 2022-03-14 18:55 | XMS_ITS | Encounter Summary ---
:1970 Author Organization [facility] Address [address] [place] [address] Care Team Providers Name Role Phone Antonio Jerez MD Primary Care Provider Encounter Details Date Type Department Care Team Description 11/30/2000 PN Conversion Only [place] CONVERSION Kvng Jerez MD [address] [place], [place] [address] (Wo rk) Social History Tobacco Use Types Packs/Day Years Used Date Smoking Tobacco: Never Assessed Sex Assigned at Date Recorded Not on file documented as of this encounter Plan of Treatment Not on filedocumented as of this encounter Visit Diagnoses Not on filedocumented in this encounter Care Teams Ice Skater Relationship Specialty Start Date End Date Antonio Jerez MD PCP - General 07/25/10 12/22/10 [address] [place] [address] documented as of this encounter
--- OUTSIDE RECORDS SUMMARY | 2022-03-14 18:55 | XMS_ITS | Encounter Summary ---
:1970 Author Organization [facility] Address [address] [place] [address] Care Team Providers Name Role Phone Antonio Jerez MD Primary Care Provider Encounter Details Date Type Department Care Team Description 04/10/1999 PN Conversion Only [place] [address] [place], [place] [address] Social History Tobacco Use Types Packs/Day Years Used Date Smoking Tobacco: Never Assessed Sex Assigned at Date Recorded Not on file documented as of this encounter Plan of Treatment Not on filedocumented as of this encounter Visit Diagnoses Not on filedocumented in this encounter Care Teams Automatic Print Developer Relationship Specialty Start Date End Date Antonio Jerez MD PCP - General 07/25/10 12/22/10 [address] [place], [place] [address] documented as of this encounter
--- OUTSIDE RECORDS SUMMARY | 2022-03-14 18:55 | XMS_ITS | Encounter Summary ---
:1970 Author Organization [facility] Address [address] [place] [address] Care Team Providers Name Role Phone Antonio Jerez MD Primary Care Provider Encounter Details Date Type Department Care Team Description 03/21/2000 PN Conversion [place] [address] [place], [place] [address] Social History Tobacco Use Types Packs/Day Years Used Date Smoking Tobacco: Never Assessed Sex Assigned at Date Recorded Not on file documented as of this encounter Plan of Treatment Not on filedocumented as of this encounter Visit Diagnoses Not on filedocumented in this encounter Care Teams Copier Field Service Technician Relationship Specialty Start Date End Date Antonio Jerez MD PCP - General 07/25/10 12/22/10 [address] [place], [place] [address] documented as of this encounter
--- OUTSIDE RECORDS SUMMARY | 2022-03-14 18:55 | XMS_ITS | Encounter Summary ---
:1970 Author Organization [facility] Address [address] [place] [address] Care Team Providers Name Role Phone Antonio Jerez MD Primary Care Provider Encounter Details Date Type Department Care Team Description 12/12/2000 PN Conversion Only RESTORATIONIST CONVERSION Kvng Jerez MD [address] [place], [place] [address] (Wo rk) Social History Tobacco Use Types Packs/Day Years Used Date Smoking Tobacco: Never Assessed Sex Assigned at Date Recorded Not on file documented as of this encounter Plan of Treatment Not on filedocumented as of this encounter Visit Diagnoses Not on filedocumented in this encounter Care Teams Recordak Operator Relationship Specialty Start Date End Date Antonio Jerez MD PCP - General 07/25/10 12/22/10 [address] [place] [address] documented as of this encounter
--- OUTSIDE RECORDS SUMMARY | 2022-03-14 18:55 | XMS_ITS | Encounter Summary ---
:1970 Author Organization [facility] Address [address] [place] [address] Care Team Providers Name Role Phone Antonio Jerez MD Primary Care Provider Encounter Details Date Type Department Care Team Description 06/16/1998 PN Conversion Only [place] [address] [place], [place] [address] Social History Tobacco Use Types Packs/Day Years Used Date Smoking Tobacco: Never Assessed Sex Assigned at Date Recorded Not on file documented as of this encounter Plan of Treatment Not on filedocumented as of this encounter Visit Diagnoses Not on filedocumented in this encounter Care Teams Damage Appraiser Relationship Specialty Start Date End Date Antonio Jerez MD PCP - General 07/25/10 12/22/10 [address] [place], [place] [address] documented as of this encounter
--- OUTSIDE RECORDS SUMMARY | 2022-03-14 18:55 | XMS_ITS | Encounter Summary ---
:1970 Author Organization [facility] Address [address] [place] [address] Care Team Providers Name Role Phone Antonio Jerez MD Primary Care Provider Encounter Details Date Type Department Care Team Description 08/25/2001 PN Conversion Only [place] [address] [place], [place] [address] Social History Tobacco Use Types Packs/Day Years Used Date Smoking Tobacco: Never Assessed Sex Assigned at Date Recorded Not on file documented as of this encounter Plan of Treatment Not on filedocumented as of this encounter Visit Diagnoses Not on filedocumented in this encounter Care Teams Supervisor [employer] Relationship Specialty Start Date End Date Antonio Jerez MD PCP - General 07/25/10 12/22/10 [address] [place], [place] [address] documented as of this encounter
--- OUTSIDE RECORDS SUMMARY | 2022-03-14 18:55 | XMS_ITS | Encounter Summary ---
:1970 Author Organization [facility] Address [address] [place] [address] Care Team Providers Name Role Phone Antonio Jerez MD Primary Care Provider Encounter Details Date Type Department Care Team Description 09/11/1999 PN Conversion Only [place] [address] [place], [place] [address] Social History Tobacco Use Types Packs/Day Years Used Date Smoking Tobacco: Never Assessed Sex Assigned at Date Recorded Not on file documented as of this encounter Plan of Treatment Not on filedocumented as of this encounter Visit Diagnoses Not on filedocumented in this encounter Care Teams Social Insurance Adviser Relationship Specialty Start Date End Date Antonio Jerez MD PCP - General 07/25/10 12/22/10 [address] [place], [place] [address] documented as of this encounter
--- OUTSIDE RECORDS SUMMARY | 2022-03-14 18:55 | XMS_ITS | Encounter Summary ---
:1970 Author Organization [facility] Address [address] [place] [address] Care Team Providers Name Role Phone Antonio Jerez MD Primary Care Provider Encounter Details Date Type Department Care Team Description 03/12/2002 PN Conversion Only TENRIISM CONVERSION Kvng Jerez MD [address] [place], [place] [address] (Wo rk) Social History Tobacco Use Types Packs/Day Years Used Date Smoking Tobacco: Never Assessed Sex Assigned at Date Recorded Not on file documented as of this encounter Plan of Treatment Not on filedocumented as of this encounter Visit Diagnoses Not on filedocumented in this encounter Care Teams Nursing Technician Relationship Specialty Start Date End Date Antonio Jerez MD PCP - General 07/25/10 12/22/10 [address] [place] [address] documented as of this encounter
--- OUTSIDE RECORDS SUMMARY | 2022-03-14 18:55 | XMS_ITS | Encounter Summary ---
:1970 Author Organization [facility] Address [address], [place] [address] Care Team Providers Name Role Phone Antonio Jerez MD Primary Care Provider Encounter Details Date Type Department Care Team Description 10/18/2002 PN Conversion Only [place] [address] [place], [place] [address] Social History Tobacco Use [...] (10/18/2002 1:56 PM CDT) [facility] Time Signature Time Last Dose 2,330 No normal HP CONVERSION Valproic Acid range Date Last Dose [id number] No normal HP CONVERSION Valproic Acid range [...] on filedocumented in this encounter Care Teams Dental Coordinator Relationship Specialty Start Date End Date Antonio Jerez MD PCP - General 07/25/10 12/22/10 [address] [facility] [place] [address] documented as of this encounter
--- OUTSIDE RECORDS SUMMARY | 2022-03-14 18:55 | XMS_ITS | Encounter Summary ---
:1970 Author Organization [facility] Address [address] [place] [address] Care Team Providers Name Role Phone Antonio Jerez MD Primary Care Provider Encounter Details Date Type Department Care Team Description 02/21/2002 PN Conversion Only [place] [address] [place], [place] [address] Social History Tobacco Use Types Packs/Day Years Used Date Smoking Tobacco: Never Assessed Sex Assigned at Date Recorded Not on file documented as of this encounter Plan of Treatment Not on filedocumented as of this encounter Visit Diagnoses Not on filedocumented in this encounter Care Teams Supervisor Publications Production Relationship Specialty Start Date End Date Antonio Jerez MD PCP - General 07/25/10 12/22/10 [address] [place], [place] [address] documented as of this encounter
--- OUTSIDE RECORDS SUMMARY | 2022-03-14 18:55 | XMS_ITS | Encounter Summary ---
:1970 Author Organization [facility] Address [address] [place] [address] Care Team Providers Name Role Phone Antonio Jerez MD Primary Care Provider Encounter Details Date Type Department Care Team Description 07/10/2002 PN Conversion Only EPISCOPAL CONVERSION Kvng Jerez MD [address] [place], [place] [address] (Wo rk) Social History Tobacco Use Types Packs/Day Years Used Date Smoking Tobacco: Never Assessed Sex Assigned at Date Recorded Not on file documented as of this encounter Plan of Treatment Not on filedocumented as of this encounter Procedures Procedure Name Priority Date/Time Associated Diagnosis Comme nts ALT (SGPT) Routine 07/10/2002 2:10 PM Results f or this HAND FILER BALANCE WHEEL procedure are i n the results section . AST Routine 07/10/2002 2:10 PM Results f or this HAND FILER BALANCE WHEEL procedure are i n the results section . documented in this encounter Results ALT (SGPT) (07/10/2002 2:10 PM HAND FILER BALANCE WHEEL) [facility] [employer] Method Time Signature Alanine 58 0 - 65 HP CONVERSION Aminotransferase U/L Specimen (Source) Anatomical Collection Method Collection Time Re ceived Time Location / / Volume Laterality 07/10/2002 2:10 PM HAND FILER BALANCE WHEEL Antonio Jerez MD LAB_1 Performing Organization Address City/State/ZIP Code Phon e Number HP CONVERSION AST (07/10/2002 2:10 PM HAND FILER BALANCE WHEEL) [facility] [employer] Method Time Signature Aspartate 36 0 - 45 HP CONVERSION Aminotransferase U/L Specimen (Source) Anatomical Collection Method Collection Time Re ceived Time Location / / Volume Laterality 07/10/2002 2:10 PM HAND FILER BALANCE WHEEL Antonio Jerez MD LAB_1 Performing Organization Address City/State/ZIP Code Phon e Number HP CONVERSION documented in this encounter Visit Diagnoses Not on filedocumented in this encounter Care Teams Restorative Art Embalmer Relationship Specialty Start Date End Date Antonio Jerez MD PCP - General 07/25/10 12/22/[address] [place] [address] documented as of this encounter
--- OUTSIDE RECORDS SUMMARY | 2022-03-14 18:55 | XMS_ITS | Encounter Summary ---
:1970 Author Organization [facility] Address [address] [place] [address] Care Team Providers Name Role Phone Unavailable Primary Care Provider Unavailable Encounter Details Date Type Department Care Team Description 05/25/1987 - 07/22/1988 Hospital Encounter UATSDIN CONVERSION Social History Tobacco Use Types Packs/Day Years Used Date Smoking Tobacco: Never Assessed Sex Assigned at Date Recorded Not on file documented as of this encounter Plan of Treatment Not on filedocumented as of this encounter Visit Diagnoses Not on filedocumented in this encounter
--- OUTSIDE RECORDS SUMMARY | 2022-03-14 18:55 | XMS_ITS | Encounter Summary ---
:1970 Author Organization [facility] Address [address] [place] [address] Care Team Providers Name Role Phone Antonio Jerez MD Primary Care Provider Encounter Details Date Type Department Care Team Description 05/26/2001 PN Conversion [place] [address] [place], [place] [address] Social History Tobacco Use Types Packs/Day Years Used Date Smoking Tobacco: Never Assessed Sex Assigned at Date Recorded Not on file documented as of this encounter Plan of Treatment Not on filedocumented as of this encounter Visit Diagnoses Not on filedocumented in this encounter Care Teams Voltage Regulator Assembler Relationship Specialty Start Date End Date Antonio Jerez MD PCP - General 07/25/10 12/22/10 [address] [place], [place] [address] documented as of this encounter
--- OUTSIDE RECORDS SUMMARY | 2022-03-14 19:05 | XMS_ITS | Encounter Summary ---
:1970 [facility] Address [address], [place] [address] Care Team Providers Name Role Phone Gagandeep Hinojosa MD Primary Care Provider Reason for Visit Reason Comments Diabetes Encounter Details Date Type Department Care Team Description 07/20/2013 Office Visit Gagandeep Storm Type II or unspecified type diabetes mellitus without mention of complication, uncontrolled (Primary Dx); Romario Rubio MD Hyperlipidemia LDL goal < 70; [address] [place] [address] [facility] Onychomy cosis; [address] Tobacco abuse; [place] [address] [place], [place] [facility] current use of ins ulin; [phone] Long-term insulin use in type 2 diabetes ; [phone] Unspecified ess ential hypertension; (Work) Other and unspecified hyperlipidemia; [phone] Tobacco use dis order; (Fax) Obesity, unspec [...] - 07/21/2013 12:37 AM CDT [place] [phone] My Diabetes at a Glance Aspirin Use [...] nail Tobacco abuse (HRC) Tobacco use disorder termite renewal inspector current use of insulin [...] unspecified documented in this encounter Care Teams Boomboat Operator Relationship Specialty Start Date End Date Gagandeep Hinojosa MD PCP - General 05/17/12 [facility] [facility] [address] Vane Zarate Psychiatrist Psychiatry 03/22/12 documented as of this encounter
--- OUTSIDE RECORDS SUMMARY | 2022-03-14 19:05 | XMS_ITS | Encounter Summary ---
:1970 Author Organization [facility] Address [address] [place] [address] Care Team Providers Name Role Phone Gagandeep Hinojosa MD Primary Care Provider Reason for Visit Reason Comments RESULTS, TEST Patient Calling Back Encounter Details Date Type Department Care Team Description 11/27/2013 Telephone [facility] Gagandeep Hinojosa RESUL TS, TEST; Patient Medicine MD Calling Back 1415 [facility] . [address] [place] [address] [place], [place] [address] (Wo rk) Social History Tobacco Use Types [...] and where was test done? 11/27/13 at [facility] Patient has questions on the results and if he should have any work restrictions. Please advise. Who ordered the test? Gagandeep Hinojosa MD documented in this encounter Plan of Treatment Not on filedocumented as of this encounter Visit Diagnoses Not on filedocumented in this encounter Care Teams Machine Operator Relationship Specialty Start Date End Date Gagandeep Hinojosa MD PCP - General 05/17/12 [facility] [facility] [address] Vane Zarate Psychiatrist Psychiatry 03/22/12 documented as of this encounter
--- OUTSIDE RECORDS SUMMARY | 2022-03-14 19:09 | XMS_ITS | Encounter Summary ---
:1970 [facility] Address [address] [place] [address] Care Team Providers Name Role Phone Antonio Jerez MD Primary Care Provider Encounter Details Date Type Department Care Team Description 09/04/2010 PN Conversion Only [place] CONVERSION [address] [place] [address] Social History Tobacco Use Types Packs/Day Years Used Date Smoking Tobacco: Never Assessed Sex Assigned at Date Recorded Not on file documented as of this encounter Plan of Treatment Not on filedocumented as of this encounter Visit Diagnoses Not on filedocumented in this encounter Care Teams Licsw Relationship Specialty Start Date End Date Antonio Jerez MD PCP - General 07/25/10 12/22/10 [address] [place], [place] [address] documented as of this encounter
== END 2022-03-14 18:47 | disposition home or self-care (01) ==
PROVIDERS: Emergency Provider Emergency Medicine Emergency Medical Services; PCP Family Medicine
DX: S79.912A Unspecified injury of left hip, initial encounter (principal); W18.30XA Fall on same level, unspecified, initial encounter; Y93.9 Activity, unspecified; Y92.9 Unspecified place or not applicable; Y99.9 Unspecified external cause status
CPT/HCPCS: 73502; 99283; 99284; A9270

== ENCOUNTER 2022-04-06 08:45 | Outpatient (RCR) | payer MEDICARE, MEDICAID, SELFPAY | END 2022-06-07 16:50 | disposition home or self-care (01) | PROVIDERS: PCP Family Medicine; Visit Provider Family Medicine | DX: R26.9 Unspecified abnormalities of gait and mobility (principal); Z51.89 Encounter for other specified aftercare | CPT/HCPCS: 97110; 97112; 97162 ==

== ENCOUNTER 2022-08-20 18:13 | Outpatient (CLI) | payer MEDICARE, MEDICAID, SELFPAY | END 2022-08-20 18:14 | disposition home or self-care (01) | LOC: AMB 08-23 13:24 | PROVIDERS: PCP Family Medicine; Visit Provider Family Medicine | DX: S99.822A Other specified injuries of left foot, initial encounter (principal); X58.XXXA Exposure to other specified factors, initial encounter; Y92.003 Bedroom of unspecified non-institutional (private) residence as the place of occurrence of the external cause | CPT/HCPCS: A0425; A0429 ==

== ENCOUNTER 2023-05-14 11:21 | Emergency (ER) | payer MEDICARE, MEDICAID, SELFPAY ==
[2023-05-14] VITALS (20 sets, daily range): BP systolic 113–159; BP diastolic 66–86; PULSE 70–79; RESP 18; TEMP 36.3; O2SAT 91–97; BMI 27.3
--- OUTSIDE RECORDS SUMMARY | 2023-05-14 11:25 | XMS_ITS | Clinical Summary ---
Author Name Unknown Organization [facility] Address [address], [place] [address] Care Team Providers Care Warehouse Associate Driver Name Role Phone Gagandeep Hinojosa MD Primary Care Provider [phone] Source Comments You are receiving this document as you are listed as the primary care provider,follow-up provider, or the patient has been referred to you for consultation.This is in compliance with the Medicare andMedicaid EHR Incentive Program,which states Providers who transition their patient to another setting of careor provider of care or refers their patient to another provider of care shouldprovide summary care record for each transition of care or referral. [facility] Allergies Active Allergy Reactions Criticality Noted Date Comments Aripiprazole 03/07/2013 permanent shaking in left arm Gabapentin 06/29/2016 Suicidal thoughts Other reaction(s): Other - Describe In Comment Field Suicidal ideation Haloperidol Shock 07/10/2002 Nitroglycerin Nausea And Vomiting 01/10/2014 Thiothixene (Tiotixene) Other, see comments 07/10/2002 Muscle spasm Trifluoperazine 03/15/2009 Confusion, heart palpitations Bupropion Anxiety 04/29/2017 Ziprasidone 03/15/2009 Tardive dyskinsia Medications Medication Sig Dispensed Refills Start Date End Date Status aspirin 81 MG chewable tablet TAKE 1 TABLET BY MOUTH DAILY . 100 tablet 1 08/13/2011 Active ONE TOUCH ULTRA 2 meterIndications:Un controlled type 2 diabetes mellitus with diabetic polyneuropathy, with long-term current use of insulin Use to test 4 times a day. 1 Each 0 06/09/2016 Active [employer]CH ULTRA CONTROL solutionIndications :Uncontrolled type 2 diabetes mellitus with diabetic polyneuropathy, with long-term current use of insulin Use to test as needed. 1 Each 11 06/09/2016 Active multivitamin (THERAGRAN) tablet Take 1 Tablet by mouth. 0 Active divalproex (DEPAKOTE DR) 250 MG enteric coated tablet Take 1,000 mg by mouth two times a day. 0 Active levOCARNitine (CARNITOR) 330 MG tablet TK 3 TS PO QD 5 03/06/2019 Active atorvastatin (LIPITOR) 80 MG tabletIndications:A SHD (arteriosclerotic heart disease) ([facility]),Hyperlipidemi a with target LDL less than 70 ([facility]) Take 1 tablet by mouth once daily 90 Tablet 3 08/10/2019 Active Additional Information Patient not taking.Reported on 08/28/2019 glucose 4 gram chewable tabletIndications:H ypoglycemia ([facility]) Chew and swallow 4 Tablets by mouth once as needed (Blood sugar less than 70). 30 Tablet 1 10/05/2019 Active insulin degludec 200 UNIT/ML SOPNIndications:Unc ontrolled type 2 diabetes mellitus with hyperglycemia ([facility]) Inject 32 Units subcutaneously daily. 12 mL 0 10/08/2019 Active amLODIPine (NORVASC) 10 MG tabletIndications:E ssential hypertension ([facility]) Take 1 Tablet by mouth daily. 90 Tablet 3 12/04/2019 Active Continuous Blood Gluc Sensor (FREESTYLE TALAT 14 DAY SENSOR) MISCIndications:Unc ontrolled type 2 diabetes mellitus with hyperglycemia (C) Use as directed. Change every 14 days. 6 Each 4 12/04/2019 Active Continuous Blood Gluc Warp Tying Machine Tender (FREESTYLE TALAT 2 READER SYSTM) DEVIIndications:Unc ontrolled type 2 diabetes mellitus with hyperglycemia (C) Use to scan blood sugars per lumber carrier operator instructions. 1 Each 0 12/04/2019 Active metFORMIN (GLUCOPHAGE) 500 MG tablet Take 2 Tablets by mouth two times a day with meals. 360 Tablet 3 01/09/2020 Active busPIRone (BUSPAR) 10 MG tabletIndications:A nxiety (HRC) Take 3 Tablets by mouth two times a day for 30 days. 360 Tablet 3 01/22/2020 Active QUEtiapine (SEROQUEL) 200 MG tablet TAKE ONE TABLET BY MOUTH AT BEDTIME 30 Tablet 1 03/02/2020 Active ONETOUCH DELICA lancetsIndications: Uncontrolled type 2 diabetes mellitus with diabetic polyneuropathy, with long-term current use of insulin Use 1 Each to test three times a day. 300 Each 3 04/01/2020 Active blood glucose (ONE TOUCH ULTRA BLUE) test stripIndications:Un controlled type 2 diabetes mellitus with microalbuminuria, with long-term current use of insulin Use 1 Each to test three times a day. Pharmacy dispense brand based on insurance. ICD-10: E11.29, E11.65, R80.9, Z79.4 300 Strip 3 04/01/2020 Active divalproex (DEPAKOTE ER) 500 MG 24 hour release tablet Take 2 Tablets by mouth two times a day. 120 Tablet 0 05/09/2020 Active insulin regular (NOVOLIN R) 100 UNIT/ML injectionIndication s:Uncontrolled type 2 diabetes mellitus with complication, with long-term current use of insulin Inject 2 units per 15 grams of carb before meals, at least 6 hours apart.Add Sliding Scale +1 unit/50 >150.max is 30 units daily. 10 mL 11 06/07/2020 Active Insulin Syringe-Needle U-100 (INSULIN SYRINGE 31G X 5/16) 31G X 5/16 1 MLIndications:Uncon trolled type 2 diabetes mellitus with complication, with long-term current use of insulin Inject 1 Each subcutaneously 4 times a day. 400 Each 3 06/07/2020 Active benztropine (COGENTIN) 0.5 MG tabletIndications:D rug-induced extrapyramidal movement disorder (HRC) Take 1 Tablet by mouth two times a day for 30 days. 60 Tablet 2 06/09/2020 Active insulin degludec 200 UNIT/ML SOPNIndications:Unc ontrolled type 2 diabetes mellitus with hyperglycemia (HRC) Inject 32 Units subcutaneously daily. 18 mL 0 06/18/2020 Active insulin aspart (NOVOLOG) 100 UNIT/ML pen injectionIndication s:Uncontrolled type 2 diabetes mellitus with hyperglycemia (HRC) Inject 5-10 Units subcutaneously three times daily before meals. 45 mL 1 07/11/2020 Active metoprolol succinate (TOPROL XL) 50 MG 24 hour release tabletIndications:E ssential hypertension (HRC) TAKE 1 TABLET BY MOUTH DAILY 90 Tablet 3 09/02/2020 Active risperiDONE (RISPERDAL) 3 MG tablet TAKE 1 TABLET BY MOUTH TWICE DAILY 60 Tablet 1 09/06/2020 Active NOVOFINE 30 30G X 8 MM USE DIRECTED WITH INSULIN PENS 400 Each 3 09/04/2020 Active risperiDONE (RISPERDAL) 3 MG tablet Take 1 Tablet by mouth two times a day. 180 Tablet 0 09/04/2020 Active Active Problems Patient Care Coordination No te Formatting of this note migh t be different from the original. Assistant Infant Toddler Teacher: Lesly Rodrigues [facility] Yar[employer]za [phone] Care coordination focus: T2DM, financial resources Living situation: lives with spouse Important notes: SSDI, significant insulin resistance, regularly reaches Medicare Coverage Gap and cannot afford insulin Problem Noted Date Diagnosed Date Non-proliferative diabetic retinopathy 0 Hyponatremia 01/16/2018 Tinea versicolor 07/18/2015 Tobacco use disorder 10/26/2012 Anemia 05/02/2012 Overview: Anemia, unspecified Microalbuminuria 02/04/2012 MO, old 09/16/2011 History of PTCA 09/16/2011 Overview: History of PTCA 04/2011 BMS RCA Obesity, Class I, BMI 30-34.9 09/16/2011 Overview: Body mass index is 31.16 kg/(m^2). Hyperlipidemia with target LDL less than 70 05/26 Overview: Hyperlipidemia LDL goal < 70 ASHD (arteriosclerotic heart disease) 05/04/2011 Erectile dysfunction 01/22/2011 Overview: side effect Risperdal Type 2 diabetes mellitus, uncontrolled 1 Overview: Type II or unspecified type diabetes mellitus without mention of complication, uncontrolled (HRC) Dermatophytosis of body 09/04/2010 Overview: Tinea Corporis Coronary atherosclerosis 12/22/2009 Overview: LW Modifier: mod RCA, negative nuclear stress test ; CAD Nonspecific abnormal results of liver function s tudy 12/22/2009 Overview: Liver Function Tests Abnormal Bipolar I disorder 09/15/2005 Overview: LW Onset: [id number] ; Bipolar I Dis Resolved Problems Problem Noted Date Diagnosed Date Resolved Date Tobacco abuse 02/24/2016 12/18/2018 ACS (acute coronary syndrome) 10/25/2012 02/16/2017 Mass on back 05/02/2012 10/25/2012 Health [facility], active care coordination 03/22/2012 07/27/2018 Overview: Assistant Infant Toddler Teacher: JOSETTE Yip [phone] Care coordination focus: T2DM, financial resources Living situation: lives with spouse Important notes: SSDI, significant insulin resistance, uses Relion insulin, commonly reaches Medicare Coverage Gap See care plan under Chart Review > Misc Reports > AMB [facility] CARE PLAN REPORT Last Assessment & Plan: Assistant Infant Toddler Teacher: Lesly Rodrigues [facility] [phone] Care coordination focus: mental health Living situation: Lives with Important notes: [facility] case management starting LFTs abnormal 02/02/2012 10/25/2012 S/P angioplasty with stent 05/26/2011 0 10/25/2012 Overview: Apr 2011 Plantar wart 05/26/2011 10/25/2012 Acute MO 05/01/2011 02/01/2012 Hypertriglyceridemia 12/11/2010 013 Overview: >5000 Disorder of lipoid metabolism 12/22/2009 10/25/2012 Overview: Dyslipidemia Painful respiration 12/22/2009 10/26/19 13 Overview: Pain Chest Wall Tobacco use disorder 09/29/2002 012 Overview: quit Apr 29, 2011 ; Tobacco Abuse Immunizations Name Administration Dates Next Due Flu Vac (3+ yrs) 02/01/2012,01/26/2011 Flu Vac Preserv Free (3+yrs) 02/01/2012, 01/22/2011,03/17/2009,2006,03/23/2006,05/19/2005 HepB Adult (Engerix-B, 20+ y rs, 3 dose series) 12/18/2018 Influenza (Fluzone 0.25, 6-35 mos) 03/14/2013 Influenza IIV4 (Quadrivalent ) 0.5mL (85654) 01/07/2020,01/16/2018,02/16/2017,2015,03/27/2015,01/16/2014,03/14/2013 Influenza, Unspecified Formulation 08/23,03/14/2013,03/17/2009,2006,03/23/2006,05/19/2005,03/12/2002 PPSV23 (Pneumovax) 10/08/2009 TB Skin Test (PPD) 06/11/2019,02/05/2016, 016 TDAP (ADACEL) 09/15/2005 TDAP (BOOSTRIX) 11/04/2015 Td 11/12/1998 Social History Tobacco Use Types Packs/Day Years Used Date Smoking Tobacco: Every Day Cigarettes 1 39 Started: 05/17/1984 Smokeless Tobacco: Former Quit: 10/25/2012 Tobacco Cessation:Counseling Given: No Comments:about 2 cigarettes at most Alcohol Use Standard Drinks/Week Comments No 0 (1 standard drink = 0.6 oz pure alcohol) Alcoholic Drinks/day: Amount:0; Freq:Never; PHQ-2 Answer Date Recorded PHQ-2 Score 1 12/04/2019 Sex and Gender Information Value Date Recorded Sex Assigned at Not on file Gender Identity Not on file Sexual Orientation Not on file Last Filed Vital Signs Vital Sign Reading Time Taken Comments Blood Pressure 132/88 06/09/2020 4:43 PM SURGERY ASSISTANT Pulse 99 06/09/2020 4:43 PM SURGERY ASSISTANT Temperature 38.2 ??C (100.8 ??F) 05/02/2019 11:31 AM SURGERY ASSISTANT Respiratory Rate 16 03/07/2013 2:52 PM SURGERY ASSISTANT Oxygen Saturation 97% 10/27/2012 3:52 PM CDT Inhaled Oxygen Concentration - - Weight 88.9 kg (196 lb) 06/09/2020 4:43 PM SURGERY ASSISTANT Height 177.8 cm (5' 10) 12/04/2019 10:49 AM CDT Body Mass Index 28.12 12/04/2019 10:49 AM CDT Plan of Treatment Health Maintenance Due Date Last Done Comments Colon Cancer Screening Plan Due 1970 PSA Screening Discussion 1970 COVID-19 Vaccine (#1) 1970 Pneumococcal (2 - PCV) 10/08/2010 10/08/2009 HepB (2) 01/15/2019 12/18/2018 Diabetes: Foot Exam 07/28/2019 07/27/2018 ( Completed), 07/19/2016 Zoster/Shingles (1 of 2) 01/22/2020 Diabetes: Creatinine 12/03/2020 12/04/2019, 08/28/2019, 11/28/2018, Additional history exists Diabetes: Urine Microalbumin 12/03/2020 12/04/2019, 08/28/2019, 08/15/2017, Additional history exists Diabetes: Eye Exam 02/01/2021 02/02/2020 (C ompleted), 07/25/2017 (Completed), 06/28/2016 (Completed), Additional history exists Medicare Annual Wellness Visit 07/04/2021 07/04/2020, 12/04/2019 Diabetes: HGBA1C 11/10/2021 08/11/2021, , 01/07/2021, Additional history exists Influenza (#1) 2022 01/07/2020, 12/25, 02/16/2017, Additional history exists Diabetes: Lipid Panel 12/03/2024 12/04/2019 , 08/15/2017, 02/16/2017, Additional history exists DTaP/Tdap/Td (3 - Tdap) 11/03/2025 11/04/19 16, 09/15/2005, 11/12/1998 HIV Screening (Preventive Services) Completed 03/12/2002 Hep C Screening (Preventive Services) Completed 03/12/2002 HepA Aged Out No longer eligi ble based on patient's age to complete this topic Hib Aged Out No longer eligi ble based on patient's age to complete this topic IPV (Polio) Aged Out No longer eligi ble based on patient's age to complete this topic MCV4 Aged Out No longer eligi ble based on patient's age to complete this topic Advance Directives Latest Code Status on File Code Status Date Activated Date Inactivated Comments Full Code 10/25/2012 7:32 PM 10/27/2012 6:54 PM Code Status History Code Status Date Activated Date Inactivated Comments Full Code 05/14/2011 11:08 AM 05/14/2011 11:30 PM Full Code 04/30/2011 4:27 AM 05/01/2011 12:21 PM Care Teams Warehouse Associate Driver Relationship Specialty Start Date End Date Gagandeep Hinojosa MD [address] [place] [address] PCP - General 05/17/12 Vane Zarate Psychiatrist Psychiatry 03/22/12 [facility] Psychotherapist 08/04/17 [facility] Icicle Machine Operator 09/13/17
--- OUTSIDE RECORDS SUMMARY | 2023-05-14 11:25 | XMS_ITS | Clinical Summary ---
Author Name Unknown Organization [email or web address] Address [place], [place] [address] Care Team Providers Care Drawing In Machine Tender Name Role Phone Glenys Alcantar MD Unavailable [phone] [facility] Unavailable [phone] Zhane Stanley DO Primary Care Provider [phone] Samantha Grayson PharmD Unavailable [phone] Allergies Active Allergy Reactions Criticality Noted Date Comments Aripiprazole 06/09/2008 Tardive dyskinsia Bupropion Nausea Only,Anxiety 04/29/2017 Haloperidol 02/13/2007 Tardive dyskinsia Clonazepam Other - Describe In Comment Field 08/11/2021 Neuroleptic shock Thiothixene 02/13/2007 Tardive dyskinsia Nitroglycerin Nausea And Vomiting Medium 04/09/2013 Trifluoperazine Tremors 03/15/2009 Confusion, heart palpitations Ziprasidone *Unknown 03/15/2009 Tardive dyskinsia Medications Medication Sig Dispensed Refills Start Date End Date Status Diabetic ShoeIndications:Typ e 2 diabetes mellitus with hyperglycemia, with long-term current use of insulin (HC) As directed. 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 300 g 1 09/19/19 21 Active milk of magnesia (MOM) 400 mg/5 mL suspension Take 15-30 mL by mouth once daily if needed. 0 Active loperamide (IMODIUM) 2 mg capsule As Needed 0 Active aluminum-magnesium hydroxide-simethico ne (MAALOX PLUS; MYLANTA) Four Times Daily as needed 0 Active multivitamin (MVI) tablet Take 1 Tablet by mouth once daily. 0 12/05/19 21 Active Dextromethorphan HBr 15 mg/5 mL liqd Every 4-6 Hours as needed 0 Active ondansetron (ZOFRAN ODT) 4 mg disintegrating tabletIndications:N ausea Place 1 Tablet (4 mg) on the tongue every 8 hours if needed for Nausea/Vomiting. 30 Tablet 0 03/09/20 21 Active durable medical equipment (DME)Indications:Bi lateral lower extremity edema One pair of compression stockings (15-20 mmHg) 1 Each 0 09/30/19 22 Active Calcium Antacid 200 mg calcium (500 mg) chewable tabletIndications:C hronic GERD CHEW 2-4 TABLETS BY MOUTH BETWEEN MEALS & AT BEDTIME NEEDED (STANDING ORDER) 90 tablet. 3 10/13/19 22 Active eucalyptus-menthoL (Shen Cough Drops) lozgIndications:Chr onic cough Dissolve 1 Lozenge in the mouth 2 times daily if needed (cough or sore throat). 60 Lozenge 5 02/09/20 22 Active polyethylene glycoL (MIRALAX) 17 gram/scoop powderIndications:C hronic constipation Mix 1 scoop (17 g) in liquid then take by mouth once daily if needed for Constipation. 1530 g 3 05/24/19 23 Active acetaminophen (TYLENOL) 325 mg tabletIndications:P ain Take 1 Tablet (325 mg) by mouth every 4 hours if needed for Pain. Max acetaminophen dose: 4000mg in 24 hrs. 90 Tablet 1 06/30/19 23 Active Comp Stocking,Knee,Regul ar,Sml miscIndications:Omar ateral lower extremity edema As directed. 3 Each 0 07/24/19 23 Active lisinopriL (PRINIVIL; ZESTRIL) 5 mg tabletIndications:P ositive for macroalbuminuria,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 (HC) Take 1 Tablet (5 mg) by mouth once daily. 90 Tablet 3 08/18/19 23 Active FreeStyle Bharath 2 ReaderIndications:T ype 2 diabetes mellitus with diabetic polyneuropathy, with long-term current use of insulin (HC) To be used to read blood sugars per customer services supervisor's directions. 1 Each 0 08/18/19 Active FreeStyle Bharath 2 SensorIndications:T ype 2 diabetes mellitus with diabetic polyneuropathy, with long-term current use of insulin (HC) Change sensor every 14 days 6 Each 08/18/19 Active blood sugar diagnostic (Accu-Chek Guide test strips) stripIndications:Ty pe 2 diabetes mellitus with diabetic polyneuropathy, with long-term current use of insulin (HC) USE TO TEST THREE TIMES DAILY 150 Each 08/24/19 Active blood-glucose meterIndications:Ty pe 2 diabetes mellitus with hyperglycemia, with long-term current use of insulin (HC) Dispense meter, test strips, lancets covered by pt ins. E11.65 NIDDM type II, uncontrolled - Test 3 times/day. 1 Kit 0 08/24/19 Active lancets (Accu-Chek Softclix Lancets)Indications :Type 2 diabetes mellitus with diabetic polyneuropathy, with long-term current use of insulin (HC) USE TO TEST 3 TIMES DAILY 200 Each 09/01/19 Active nicotine 2 mg lozengeIndications: Tobacco use disorder PLACE 1 LOZENGE IN MOUTH, BETWEEN CHEEK & GUM EVERY 1 HOUR WHILE AWAKE NEEDED FOR CRAVINGS *MAX OF 20 DOSES PER DAY* 72 Each 09/18/19 Active aspirin (ECOTRIN) 81 mg enteric coated tabletIndications:H TN (hypertension) TAKE 1 TABLET BY MOUTH DAILY WITH A MEAL 90 Tablet 09/18/19 Active rosuvastatin (CRESTOR) 20 mg tabletIndications:H yperlipidemia, unspecified hyperlipidemia type TAKE 1 TABLET BY MOUTH EVERY NIGHT AT BEDTIME 90 Tablet 09/18/19 Active novofine autocover 30 gauge x 1/3 needleIndications:T ype 2 diabetes mellitus with diabetic polyneuropathy, with long-term current use of insulin (HC) Use as Directed. 300 Each 10/10/19 Active Blood Glucose Control, High solnIndications:Denita betes mellitus type 2 with complications (HC) As directed. 1 Each 0 11/18/19 Active Blood Glucose Control, Low solnIndications:Denita betes mellitus type 2 with complications (HC) As directed. 1 Each 0 11/18/19 Active blood glucose control, normal solnIndications:Denita betes mellitus type 2 with complications (HC) As directed. 1 Each 0 11/18/19 Active simethicone chewable (MYLANTA GAS RELIEF; GAS X) 80 mg chewable tabletIndications:F latulence Chew 1 Tablet (80 mg) by mouth 2 times daily if needed for Flatulence. Max dose: 500 mg per 24 hrs 180 Tablet 3 11/23/19 Active paliperidone palmitate (INVEGA SUSTENNA) 234 mg/1.5 mL intramuscular syringeIndications: Bipolar I disorder with mood-congruent psychotic features (HC) Inject 234 mg intramuscular every 4 weeks. 1.5 mL 12 12/14/19 Active busPIRone (BUSPAR) 30 mg tabletIndications:G eneralized anxiety disorder,Panic disorder without agoraphobia Take 1 Tablet (30 mg) by mouth two times daily. 60 Tablet 11 12/14/19 Active trihexyphenidyL (ARTANE) 5 mg tabletIndications:N euroleptic-induced tardive dyskinesia Take 1 Tablet (5 mg) by mouth two times daily. 56 Tablet 12 12/14/19 Active divalproex (DEPAKOTE) 500 mg Delayed-Release tabletIndications:B ipolar I disorder with mood-congruent psychotic features (HC) Take 2 Tablets (1,000 mg) by mouth two times daily. 112 Tablet 12 12/14/19 Active melatonin 5 mg capsuleIndications: Insomnia, idiopathic Take 1 Capsule (5 mg) by mouth at bedtime. 90 Capsule 3 02/25/20 23 Active diphenhydrAMINE (BENADRYL) 25 mg tabletIndications:E nvironmental allergies,Insomnia due to mental condition Take 1 Tablet (25 mg) by mouth every 6 hours if needed for Sleep (allergies). 30 Tablet 11 02/22/20 Active empagliflozin (Jardiance) 10 mg tabletIndications:P ositive for macroalbuminuria Take 1 Tablet (10 mg) by mouth once daily. 90 Tablet 1 03/02/20 Active metoprolol succinate (TOPROL XL) 50 mg sustained-release tabletIndications:H TN (hypertension) Take 1 Tablet (50 mg) by mouth once daily. 90 Tablet 3 03/02/20 Active famotidine (PEPCID) 20 mg tabletIndications:C hronic GERD Take 1 Tablet (20 mg) by mouth 2 times daily if needed for Heartburn or GI Upset. 180 Tablet 3 03/02/20 23 Active ammonium lactate 12% (LACHYDRIN) 12 % creamIndications:Ca llus of foot Apply topically to affected area(s) two times daily. 140 g 3 03/03/20 23 Active gabapentin (NEURONTIN) 300 mg capsuleIndications: Diabetic ulcer of toe of right foot associated with type 2 diabetes mellitus, limited to breakdown of skin (HC),Diabetic peripheral neuropathy (HC) TAKE 3 CAPSULES BY MOUTH THREE TIMES DAILY 810 Capsule 2 04/06/20 23 Active QUEtiapine (SEROQUEL) 50 mg tabletIndications:B ipolar I disorder with mood-congruent psychotic features (HC) Take 2 Tablets (100 mg) by mouth at bedtime for 14 days, THEN 1 Tablet (50 mg) at bedtime for 28 days. THEN stop. 56 Tablet 0 04/11/20 23 024 Active furosemide (LASIX) 20 mg tabletIndications:B ilateral lower extremity edema TAKE 1 TABLET BY MOUTH DAILY 90 Tablet 0 04/16/20 23 Active guaiFENesin 100 mg/5 mL liquidIndications:A cute cough Take 5 mL (100 mg) by mouth every 6 hours if needed for Expectoration. Every 4 Hours as needed for cough 118 mL 0 05/03/19 24 Active metFORMIN (GLUCOPHAGE) 1,000 mg tabletIndications:T ype 2 diabetes mellitus with diabetic polyneuropathy, with long-term current use of insulin (HC) TAKE 1 TABLET BY MOUTH TWICE DAILY WITH MEAL(S) 180 Tablet 0 05/04/19 24 Active insulin degludec, U-200, (TRESIBA) 200 unit/mL (3 mL) penIndications:Type 2 diabetes mellitus with diabetic polyneuropathy, with long-term current use of insulin (HC) Inject 28 units subcutaneous at bedtime. 27 mL 0 05/08/19 24 Active insulin aspart, U-100, (NovoLOG Flexpen U-100 Insulin) 100 unit/mL (3 mL) penIndications:Type 2 diabetes mellitus with diabetic polyneuropathy, with long-term current use of insulin (HC) INJECT 10 UNITS SUBCUTANEOUSLY THREE TIMES DAILY WITH MEALS PLUS PER SLIDING SCALE. Sliding scale as follows: 150-199 (add 2 units), 200-249 (add 3 units), 250-299 (add 4 units), 300-349 (add 5 units), 350-399 (add 6 units), 400+ (add 8 units) 60 mL 0 05/08/19 24 Active ALPRAZolam (XANAX) 0.5 mg tabletIndications:G eneralized anxiety disorder,Panic disorder without agoraphobia Take 1 tablet (0.5 mg) by mouth 2 times daily. May take 1 tablet (0.5 mg) daily as needed for anxiety. Further refills will be prescribed during an appointment 65 Tablet 2 05/11/19 24 Active guaiFENesin (ROBITUSSIN) 100 mg/5 mL liquid Every 4 Hours as needed 0 024 Discontinued(R eorder (E-cancel not sent)) furosemide (LASIX) 20 mg tabletIndications:B ilateral lower extremity edema Take 1 Tablet (20 mg) by mouth every morning. 90 Tablet 3 05/18/19 23 023 Discontinued metFORMIN (GLUCOPHAGE) 1,000 mg tabletIndications:T ype 2 diabetes mellitus with diabetic polyneuropathy, with long-term current use of insulin (HC) Take 1 Tablet (1,000 mg) by mouth two times daily with meals. TAKE 1 TABLET BY MOUTH TWICE DAILY WITH MEAL(S) Strength: 1,000 mg 180 Tablet 3 05/25/19 23 024 Discontinued insulin aspart, U-100, (NovoLOG FlexPen U-100 Insulin) 100 unit/mL (3 mL) penIndications:Type 2 diabetes mellitus with diabetic polyneuropathy, with long-term current use of insulin (HC) INJECT 10 UNITS SUBCUTANEOUSLY THREE TIMES DAILY WITH MEALS PLUS PER SLIDING SCALE. Sliding scale as follows: 150-199 (add 2 units), 200-249 (add 3 units), 250-299 (add 4 units), 300-349 (add 5 units), 350-399 (add 6 units), 400+ (add 8 units) 60 mL 0 10/27/19 23 024 Discontinued(R eorder (E-cancel not sent)) insulin degludec, U-200, (TRESIBA) 200 unit/mL (3 mL) penIndications:Type 2 diabetes mellitus with diabetic polyneuropathy, with long-term current use of insulin (HC) Inject 28 units subcutaneous at bedtime. 18 mL 0 01/18/20 23 024 Discontinued(R eorder (E-cancel not sent)) ALPRAZolam (XANAX) 0.5 mg tabletIndications:G eneralized anxiety disorder,Panic disorder without agoraphobia Take 1 tablet (0.5 mg) by mouth 2 times daily. May take 1 tablet (0.5 mg) daily as needed for anxiety. Further refills will be prescribed during an appointment 65 Tablet 2 02/22/20 23 024 Discontinued(* Medication adjustment) Active Problems Problem Noted Date Diagnosed Date Hypertensive heart disease with heart failure Panic disorder without agoraphobia 07/05/2022 Trauma and stressor-related disorder 07/05/2022 Neuroleptic-induced tardive dyskinesia Bipolar I disorder with mood-congruent psychotic features 06/11/2022 Controlled substance agreement signed 05/05/2022 Overview: 05/05/2022 - Johan Ye MD Psychiatry Generalized anxiety disorder 04/15/2022 History of myocardial infarction 04/15/2022 History of seizures 04/15/2022 Pedal edema 04/15/2022 Peripheral neuropathy 04/15/2022 Psychogenic polydipsia 04/15/2022 Mild nonproliferative diabet ic retinopathy of both eyes without macular edema associated with type 2 diabetes mellitus 08/13/2021 Diabetic ulcer of toe of lef t foot associated with diabetes mellitus due to underlying condition, limited to breakdown of skin 12/08/2020 Cataract of both eyes 07/30/2020 Myopia with astigmatism and presbyopia, bilatera l 07/30/2020 Diabetes mellitus type 2, uncontrolled, with com plications 07/14/2020 Chest pain 06/18/2020 Hyponatremia 06/18/2020 Constipation 05/15/2020 Lactic acidosis 05/12/2020 Failure to thrive (0-17) 05/12/2020 Hyperglycemia 06/17/2019 Intentional drug overdose 12/20/2018 Vitamin D deficiency 10/25/2018 Suicidal ideation 11/26/2017 Diabetic ulcer of left midfo ot associated with type 2 diabetes mellitus 09/23/2017 Status post angioplasty with stent 09/16/2011 Overview: History of PTCA 04/2011 BMS RCA Obesity, unspecified 08/08/2011 Seizure disorder 08/07/2011 CAD (coronary artery disease) 07/04/2011 Hyperlipidemia with target LDL less than 70 05/26 Overview: Hyperlipidemia LDL goal < 70 HTN (hypertension) 05/13/2011 Tobacco use disorder, modera te, in early remission since 06/202204/29/2011 Erectile dysfunction 01/22/2011 Overview: side effect Risperdal Hypertriglyceridemia 11/27/2010 Dyslipidemia 11/29/2009 Resolved Problems Problem Noted Date Diagnosed Date Resolved Date Bipolar affective disorder, current episode mixed 06/24/2020 04/15/2022 Bipolar affective disorder, current episode hypomanic 05/14/2020 04/15/2022 Adjustment disorder with depressed mood 05/14/2020 04/15/2022 Type 2 diabetes mellitus without complication 05/12/19 21 08/18/2020 Chest pain 06/17/2019 05/12/2020 Bipolar disorder 01/05/2019 05/12/2020 Type II diabetes 01/05/2019 05/12/2020 Hypertension 01/05/2019 05/12/2020 Dyslipidemia 01/05/2019 05/12/2020 CAD (coronary artery disease) 01/05/2019 05/12/2020 Personality disorder, unspecified 01/05/2019 04/15/2022 Bipolar 1 disorder, depressed, severe 10/17/2018 05/12/2020 Chest pain at rest 06/01/2018 Generalized anxiety disorder 12/08/2017 04/15/2022 Hyponatremia 11/26/2017 05/12/2020 Leukocytosis 11/26/2017 05/12/2020 Controlled diabetes mellitus type 2 with complications 11/26/2017 05/12/2020 Bipolar disorder, current ep isode mixed, moderate 05/01/2017 05/12/2020 Chest pain, rule out AMI 12/29/201610/2017 Chest pain on breathing 09/30/201604/25 Atypical chest pain 09/18/2014 05/12/19 21 Chest pain with high risk fo r cardiac etiology 09/17/2014 05/07/2016 Acute chest pain 12/18/2013 05/07/2016 Chest pain 09/22/2012 12/18/2013 Chest pain, unspecified 07/04/201110/23 Nausea with vomiting 07/04/2011 017 Diabetes mellitus, type 2 07/04/2011 Hyperlipidemia LDL goal < 70 07/04/2011 05/01/2017 Chest pain, unspecified 05/13/201111/24 Hyponatremia 11/26/2010 05/07/2016 Diabetes mellitus type II 12/21/2009 Overview: Uncontrolled with last a1c of 10.1 in 11/2009 a system change updated this record. This will not affect patient care or billing. This comment can be deleted. Chest wall pain - noncardiac 11/07/2009 11/06/2011 Overview: With chest wall tenderness - reproduced on exam as the pain that concerned him enough to come to emergency room (ER). Chest pain, unspecified 10/07/200904/25 Hyperglycemia 10/07/2009 05/07/2016 Bipolar affective disorder, manic, severe, with psychotic behavior 02/13/2007 04/15/2022 Adjustment disorder with mix ed disturbance of emotions and conduct 02/13/2007 05/12/2020 Obsessive-compulsive disorders 02/13/2007 07/11/2008 Underdosing of insulin 05/12 Diabetes mellitus type 2 in obese 05/12/2020 Type 2 diabetes mellitus wit h diabetic neuropathy, with long-term current use of insulin 05/12/2020 Encounters Date Type Department Care Team Description 05/11/2023 8:30 AM CALCULUS TEACHER Office Visit [facility] [address] [place] [address] Johan Ye MD Follow Up; Medication Management 05/11/2023 Travel 05/06/2023 Refill [facility] [address] [place] [address] Shaqra, Zhane Анна, DO Refill Request (Novolog Inj Flexpen, Tresiba Flex Inj 200 unit ) 05/03/2023 Telephone [facility] [address] [place] [address] Nelsonqra, Zhane Анна, DO Medication Management (guaiFENesin 100 mg/5 mL liquid) 05/02/[address] [address] Josuera Zhane Анна, DO Refill Request (Metformin) 05/02/[address] [address] Jaden Zhane Анна, DO Refill Request (DIABETIC TUS EX LIQ) 04/19/[address] [address] Johan Ye MD status 04/19/[address] [address] Johan Ye MD Follow Up 04/14/[address] [address] Jaden Zhane Анна, DO Refill Request (Furosemide) 04/14/[address] [address] Jaden Zhane Анна, DO Results 04/13/2023 Orders Only [address] [address] Nelsonqra Zhane Анна, DO <No scans attached> 04/12/2023 9:00 AM CALCULUS TEACHER Orders Only [address] [address] [facility] 04/11/2023 7:30 AM CALCULUS TEACHER Office Visit [address] [address] Johan Ye MD Follow Up; Medication Management 04/11/[address] [address] Johan Ye MD Medication Management (Quetiapine (SEROQUEL) 50 mg tablet) 04/11/2023 Travel 04/08/2023 Refill [facility] [address] [place] [address] Johan Ye MD Refill Request (Quetiapine) 04/05/[address] [address] Nelsonqra Zhane Анна, DO Refill Request (Gabapentin, Furosemide, Quetiapine) 03/15/2023 1:00 PM CALCULUS TEACHER Orders Only [address] [address] [facility] 03/15/2023 Travel 03/07/[address] [address] Shaqra, Zhane Анна, DO Results 03/03/[address] [address] Nelsonqra Zhane Анна, DO Refill Request (Ammonium Lac Cre 12% ) 03/02/2023 1:45 PM CALCULUS TEACHER Office Visit [address] [address] Nelsonqra Zhane Анна, DO Diabetes (6 month check ) 03/02/2023 Travel 02/21/2023 9:30 AM CDT Office Visit [address] [address] Johan Ye MD Telehealth; Follow Up 02/21/2023 Travel 02/21/[address] [address] Nelsonqra, Zhane Анна, DO Refill Request (Melatonin) 02/17/[address] [address] Zhane Stanley, DO Results 02/14/2023 1:00 PM CDT Ancillary Procedure [facility] [address] [place] [address] 02/14/2023 Travel from Last 3 Months Immunizations Name Administration Dates Next Due COVID-19 vaccine (Pfizer-Bio NTech 30mcg/0.3mL) 12YO+ KATHERINE-SUCROSE PF, MDV 10/01/2021 COVID-19 vaccine (Pfizer-Bio NTech 30mcg/0.3mL) PF, MDV 09/16/2020,08/26/2020 Hepatitis B (Adult) 03/02/2023,08/18/2020,2018 Influenza RIV4 (Age 18+ Year s) PRESERV FREE 03/02/2021 Influenza Virus, Unspecified 08/23/2014, 03/14/2013,02/01/2012,2010,03/17/2009,03/17/2009,02/27/2007,1 04/29/2006,03/23/2006,03/23/2006, 006,05/19/2005,03/12/2002 Influenza, IIV3 (Age 6-35 mos) 02/01/2012,2010 Influenza, IIV3 (Age >=3 years) 02/01/2012,01/26 Influenza, IIV4 02/07/2023,,01/07/2020,2017,02/16/2017,02/24/2016,03/27/2015,0 01/16/2014 Influenza, IIV4 (Age 6-35 Mos) 03/14/2013 Pneumococcal Conj 20-valent (Prevnar 20) 03/02/2023 Pneumococcal Poly,23-Valent (Pneumovax) 10/08/2009 Td (Age >=7 Years) 11/12/1998 Tdap 11/04/2015,09/15/2005 Tuberculin Skin Test, Unspecified 06/11/2019,,01/26/2016 Family History Medical History Relation Name Comments Alcohol/Drug Father Alcohol Diabetes Father Heart Disease Father Heart attack a ge 35 Other Father Bone marrow can cer Psychiatric illness Father Depressi on Psychiatric illness Mother Bipolar Pulmonary fibrosis Mother Alcohol/Drug Sister 1 Alcohol Diabetes Sister 2 Anesthesia Malignant Hyperthermia No Family History Anesthesia Problem No Family History Relation Name Status Comments Father Mother Sister 1 Sister 2 Social History Tobacco Use Types Packs/Day Years Used Date Smoking Tobacco: Former Cigarettes 1 37.2 0 11/28/1984 - 02/15/2022 Smokeless Tobacco: Never Tobacco Cessation:Counseling Given: Not Answered Alcohol Use Standard Drinks/Week Comments No 0 (1 standard drink = 0.6 oz pure alcohol) Has not had a drink since the as did not want interactions with medication PHQ-2 Answer Date Recorded PHQ-2 TOTAL SCORE 0 05/11/2023 Social Connections Answer Date Recorded Frequency of Communication with Friends and Fami ly Not on file 08/10/2022 Alcohol Use Answer Date Recorded How often do you have a drink containing alcohol ? 0 06/11/2022 Average Number of Drinks Not on file 023 How often do you have five or more drinks on one occasion? 0 06/11/2022 Financial Resource Strain Answer Date R ecorded Difficulty of Paying Living Expenses 2 08/05/2021 Difficulty of Paying Living Expenses 1 08/05/2021 Food Insecurity Answer Date Recorded Worried About Running Out of Food in the Last Ye ar 1 08/05/2021 Transportation Needs Answer Date Record ed Lack of Transportation (Medical) 1 08/05/2021 Housing Stability Answer Date Recorded Unable to Pay for Housing in the Last Year 1 08/05/2021 Education Answer Date Recorded What is the highest level of school you have completed or the highest degree you have received? High school graduate 04/15/2022 Sex and Gender Information Value Date Recorded Sex Assigned at Not on file Gender Identity Not on file Sexual Orientation Not on file Obstetrics History Last Filed Vital Signs Vital Sign Reading Time Taken Comments Blood Pressure 156/76 05/11/2023 8:49 AM CALCULUS TEACHER Pulse 64 05/11/2023 8:49 AM CALCULUS TEACHER Temperature 36.3 ??C (97.4 ??F) 11/22/2022 8:39 AM CD T Respiratory Rate 16 11/22/2022 8:39 AM CDT Oxygen Saturation 99% 03/02/2023 2:01 PM CALCULUS TEACHER Inhaled Oxygen Concentration - - Weight 94 kg (207 lb 3.2 oz) 05/11/2023 8:49 AM CALCULUS TEACHER Height 177.8 cm (5' 10) 11/22/2022 8:39 AM CDT Body Mass Index 29.73 11/22/2022 8:39 AM CDT Plan of Treatment Upcoming Encounters Date Type Department Care Team (Late st Contact Info) Description 06/13/2023 10:00 AM CALCULUS TEACHER Office Visit [facility] [address] [place] [address] Johan Ye MD [address] [place] [address] 07/13/2023 9:30 AM CDT Office Visit [facility] [address] [place] [address] Johan Ye MD [address] [place] [address] 08/15/2023 10:00 AM CDT Office Visit [facility] [address] [place] [address] Johan Ye MD [address] [place] [address] 09/12/2023 9:00 AM CDT Office Visit [facility] [address] [place] [address] Johan Ye MD [address] [place] [address] Health Maintenance Due Date Last Done Comments Zoster (shingles) series for age 50+ (1 of 2) 01/22/2020 BMI (ht and wt on same day) for age 18+ 11/23/2023 11/22/2022, 04/15/2022, 08/05/2021, Additional history exists Low Dose CT (for lung CA) ag e 50-80 02/15/2024 02/14/2023, 12/21/2021, 05/07/2016 Depression screening for age 12+ 05/11/2024 05/11/2023, 04/14/2023, 04/13/2023, Additional history exists Fecal testing sDNA-FIT (Isabel guard) for age 45-75 09/07/2025 09/07/2022 Tetanus booster 11/03/2025 11/04/2015, 08/24, 11/12/1998 Lipids for age 45-75 07/03/2027 07/02/2022, 05/25/2022, 03/12/2021, Additional history exists Tdap Completed 11/04/2015, 09/15/2005 HIV for age 15-65 Completed 06/25/2020 Hepatitis C screening for ag e 18-79 Completed 06/25/2020 COVID-19 vaccine series Completed 02/08/20, 02/03/2022, 10/01/2021, Additional history exists Influenza for age 50-64 Completed 02/08/20, 02/02/2022, 03/02/2021, Additional history exists Hepatitis B series for Diabetes Completed 03/02/2023, 08/18/2020, 12/18/2018 Pneumococcal series for age 6-64 Completed 03/02/20, 10/08/2009 Procedures Procedure Name Priority Date/Time Associated Diagnosis Comments BASIC METABOLIC PANEL Routine 04/12/2023 9:07 AM CALCULUS TEACHER Hyponatremia BASIC METABOLIC PANEL Routine 03/15/2023 1:00 PM CALCULUS TEACHER Hyponatremia BASIC METABOLIC PANEL Routine 03/02/2023 1:52 PM CALCULUS TEACHER Medication monitoring encounter HEMOGLOBIN A1C Routine 03/02/2023 1:52 PM CALCULUS TEACHER Diabetes mellitus type 2, uncontrolled, with complications CT CHEST SCREENING LOW DOSE WO CONTRAST Routine 02/14/2023 1:23 PM CDT Encounter for screening for lung cancer Former smoker from Last 3 Months Results * (ABNORMAL) BASIC METABOLIC PANEL (04/12/2023 9:07 AM CALCULUS TEACHER) Only the most recent of3 resultswithin the time period is included. SODIUM 129(L) 136 - 145 mmol/L 04/12/2023 4:10 PM CALCULUS TEACHER [facility] POTASSIUM 5.4(H) 3.5 - 5.1 mmol/L 04/12/2023 4:10 PM REHABILITATION [facility] CHLORIDE 93(L) 98 - 107 mmol/L 04/12/2023 4:10 PM [facility] CO2,TOTAL 27 22 - 29 mmol/L 04/12/2023 4:10 PM [facility] ANION GAP 9 5 - 18 04/12/2023 4:10 PM [facility] GLUCOSE 191(H) 70 - 99 mg/dL 04/12/2023 4:10 PM [facility] CALCIUM 9.1 8.6 - 10.0 mg/dL 04/12/2023 4:10 PM [facility] BUN 18 6 - 20 mg/dL 04/12/2023 4:10 PM [facility] CREATININE 1.06 0.70 - 1.20 mg/dL 04/12/2023 4:10 PM [facility] BUN/CREAT RATIO 17 10 - 20 4:10 PM [facility] eGFR 84(L) >90 mL/min/1.7 3m2 04/12/2023 4:10 PM [facility] Comment:As of 2021, eG FR is calculated by the CKD-EPI creatinine equation without race adjustment. ??eGFR can be influenced by muscle mass, exercise, and diet. ??The reported eGFR is an estimation only and is only applicable if the renal function is stable. Blood BLOOD SPECIMEN / Unknown Venipuncture / Unknown 04/12/2023 9:07 AM CALCULUS TEACHER 04/12/2023 9:09 AM CALCULUS TEACHER Zhane Stanley DO [facility] [address] [place] [address], * HEMOGLOBIN A1C MONITORING (POCT) (03/02/2023 1:52 PM CALCULUS TEACHER) HEMOGLOBIN A1C MONITORING (POCT) 6.3 <=6.4 % 03/02/2023 2:04 PM CALCULUS TEACHER [facility] Blood BLOOD SPECIMEN / Unknown Venipuncture / Unknown 03/02/2023 1:52 PM CALCULUS TEACHER 03/02/2023 1:54 PM CALCULUS TEACHER Narrative [facility] - 03/02/2023 2:04 PM CALCULUS TEACHER ? (<=6.9%) ? Indicates good control ? (7.0% to 7.9%) ? Indicates fair control ? (>=8.0%) ? Indicates poor control ?? NOTE: ??These thresholds are guidelines and ?individual targets may vary. Falsely low levels may be seen with: Recent Transfusion, Recent Significant Blood Loss, Hemolytic Diseases, or Falsely elevated levels may be seen with: Untreated Anemias, Splenectomy ? Zhane Stanley DO CHEMISTRY [facility] [address] [place] [address], * CT CHEST SCREENING LOW DOSE WO CONTRAST (02/14/2023 1:23 PM CDT) Anatomical Region Laterality Modality Computed Tomogra phy Impressions 02/16/2023 2:11 PM CDT Negative for lung cancer screening purposes. LUNG-RADS CATEGORY 1: Negative. RADIOLOGIST RECOMMENDATION: Continue annual screening with low-dose CT chest in 12 months. Please note that all CT scans at this facility use dose modulation, iterative reconstruction and/or weight-based dosing when appropriate to reduce radiation dose to as low as reasonably achievable. ?? Dictated by: Edward Fallon MD @02/16/2023 10:43:32 AM / LESLEE:jj Narrative 02/16/2023 2:11 PM CDT For Patients: As a result of the Century Cures Act, medical imaging exams and procedure reports are released immediately into your electronic medical record. ??You may view this report before your referring provider. ?? If you have questions, please contact your health care provider. CT CHEST SCREENING LOW-DOSE WITHOUT CONTRAST, 02/14/2023 INDICATION: Lung cancer screening. History of smoking. High-risk patient with greater than 20 pack-year smoking history. TECHNIQUE: Low-dose lung cancer screening non-contrast CT chest. Dose reduction techniques were used. COMPARISON: 12/21/2021. FINDINGS: NODULES: None. LUNGS AND PLEURA: Mild dependent atelectasis bilaterally. Small bleb in the right lower lobe medially. MEDIASTINUM: Stable subcentimeter mediastinal lymph nodes. CORONARY ARTERY CALCIFICATION: Present. LIMITED UPPER ABDOMEN: Unremarkable. MUSCULOSKELETAL: No fracture. Degenerative changes. 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 POLST 08/20/2020 5:18 PM POLST - Latest Code Status on File Code Status Date Activated Date Inactivated Comments Full Code 06/23/2020 2:51 PM 07/01/2020 12:37 PM Question Answer Comments Code Status Discussion: Not Discussed Code Status History Code Status Date Activated Date Inactivated Comments Full Code 06/18/2020 7:15 PM 06/19/2020 4:44 PM Question Answer Comments Code Status Discussion: Discussed Full Code 05/12/2020 1:00 PM 05/20/2020 7:40 PM Question Answer Comments Code Status Discussion: Discussed Full Code 06/17/2019 7:30 PM 06/18/2019 7:31 PM Full Code 01/04/2019 8:41 PM 01/13/2019 4:30 PM Question Answer Comments Code Status Discussion: Not Discussed Care Teams Drawing In Machine Tender Relationship Specialty Start Date End Date Zhane Stanley DO [facility] [place] [address] PCP - General Internal Medicine 09/08/20 Glenys Alcantar MD [address] [place] [address] Endocrinology 05/03/17 [facility] [address] [address] [place] [address] 05/21/20 Samantha Grayson, PharmD [address] [facility] [place] [address] Pharmacist Medication Management Pharmacology 10/21/20
--- OUTSIDE RECORDS SUMMARY | 2023-05-14 11:26 | XMS_ITS | Encounter Summary ---
Author Name Unknown Organization [facility] Address [address] [place] [address] Care Team Providers Care Investment Executive Name Role Phone Gagandeep Hinojosa MD Primary Care Provider [phone] Reason for Visit * Reason Onset Date Comments Refill 02/01/2023 Diphenhydramine 25mg Capsule Encounter Details Date Type Department Care Team Description 02/01/2023 Telephone [facility] [address] [facility] [place], [place] [id number] Gagandeep Hinojosa MD [address] [place], [place] [phone] Refill (Diphenhydramine 25mg Capsule) Social History Tobacco Use Types Packs/Day Years Used Date Smoking Tobacco: Every Day Cigarettes 1 39 Started: 05/17/1984 Smokeless Tobacco: Former Quit: 10/25/2012 Comments:about 2 cigarettes at most Alcohol Use Standard Drinks/Week Comments No 0 (1 standard drink = 0.6 oz pure alcohol) Alcoholic Drinks/day: Amount:0; Freq:Never; PHQ-2 Answer Date Recorded PHQ-2 Score 1 12/04/2019 Sex and Gender Information Value Date Recorded Sex Assigned at Not on file Gender Identity Not on file Sexual Orientation Not on file documented as of this encounter Nursing Notes * Sasha Garcia RN - 02/01/2023 2:03 PM CDT Spoke to Satnam at [facility]. Patient appears to be a patient at [facility] now. Advised to reach out to patient new provider for refill. Verbalized understanding. * Evelin Stockton - 02/01/2023 12:39 PM CDT Further assistance needed to complete refill request Reason: Prescription not on patients' active med list. Please verify. Next Steps: Triage to complete refill as appropriate. REQUEST PRESCRIPTION: Drug Name/Strength: Diphenhydramine 25mg Capsule Sig: Take 1-2 capsules by mouth every 8 hours as needed for allergies [facility] PH: documented in this encounter Plan of Treatment Not on file documented as of this encounter Visit Diagnoses Not on filedocumented in this encounter Care Teams Investment Executive Relationship Specialty Start Date End Date Gagandeep Hinojosa MD [address] [place] [address] PCP - General 05/17/12 Vane aZrate Psychiatrist Psychiatry 03/22/12 [facility] Psychotherapist 08/04/17 [facility] Through Freight Engineer 09/13/17 documented as of this encounter
--- NOTE | 2023-05-14 11:58 | CRLHL7_ITS ---
For Patients: As a result of the Century Cures Act, medical imaging exams and procedure reports are released immediately into your electronic medical record. You may view this report before your referring provider. If you have questions, please contact your health care provider. INDICATION Weakness. Slurred speech. TECHNIQUE: Noncontrast CT images of the brain. COMPARISON: CT brain 02/10/2022. FINDINGS: Mild diffuse cerebral volume loss. No mass effect or midline shift. The vargas-white differentiation is maintained. No acute intracranial hemorrhage or pathologic extra-axial fluid collection. Scattered hypoattenuation in the supratentorial white matter, typical for mild chronic microvascular ischemic changes. Intracranial atherosclerotic calcifications. The globes are symmetric. The calvarium is intact. The visualized paranasal sinuses and mastoid air cells are clear. IMPRESSION: No acute intracranial hemorrhage or mass effect. Please note that all CT scans at this facility use dose modulation, iterative reconstruction, and/or weight-based dosing when appropriate to reduce radiation dose to as low as reasonably achievable. Dictated by Shaggy Bruno MD @ 05/14/2023 1:31:26 PM (Electronically Signed)
--- OUTSIDE RECORDS SUMMARY | 2023-05-14 12:14 | XMS_ITS | Clinical Summary ---
Author Name Unknown Organization [facility] Address [place], [place] [address] Care Team Providers Care Preflight Inspector Name Role Phone Glenys Alcantar MD Unavailable [phone] [facility], [place] Unavailable [phone] Zhane Stanley DO Primary Care Provider [phone] Samantha Grayson PharmD Unavailable [phone] Allergies Active Allergy Reactions Criticality Noted Date [...] 09/19/19 21 Active mineral oil-hydrophil petrolat (Aquaphor) ointIndications:Combatant Diver Qualified cked skin on feet Apply topically to [...] be used to read blood sugars per forest pathology professor's directions. 1 Each 0 08/18/19 Active FreeStyle [...] Department Care Team Description 05/11/2023 8:30 AM CHANNEL DEVELOPMENT DIRECTOR Office Visit [facility] [address] [place] [address] Johan Ye MD Follow Up; Medication Management 05/11/2023 Travel 05/06/2023 Refill [facility] [address] [place] [address] Shaqra, Zhane Анна, DO Refill Request (Novolog Inj Flexpen, Tresiba Flex Inj 200 unit ) 05/03/2023 Telephone [facility] [address] [place] [address] Nelsonqra, Zhane Анна, DO Medication Management (guaiFENesin 100 mg/5 mL liquid) 05/02/[address] [address] Josuera Zhane Анна, DO Refill Request (Metformin) 05/02/[address] [address] Jaden Zhane Анна, DO Refill Request (DIABETIC TUS EX LIQ) 04/19/[address] [address] Johan Ye MD status 04/19/[address] [address] Johan Ye MD Follow Up 04/14/[address] [address] Jaden Zhane Анна, DO Refill Request (Furosemide) 04/14/[address] [address] Jaden Zhane Анна, DO Results 04/13/2023 Orders Only [address] [address] Nelsonqra Zhane Анна, DO <No scans attached> 04/12/2023 9:00 AM CHANNEL DEVELOPMENT DIRECTOR Orders Only [address] [address] Lab, [place] [facility] 04/11/2023 7:30 AM CHANNEL DEVELOPMENT DIRECTOR Office Visit [address] [address] Johan Ye MD Follow Up; Medication Management 04/11/[address] [address] Johan Ye MD Medication Management (Quetiapine (SEROQUEL) 50 mg tablet) 04/11/2023 Travel 04/08/2023 Refill [facility] [address] [place] [address] Johan Ye MD Refill Request (Quetiapine) 04/05/[address] [address] Nelsonqra Zhane Анна, DO Refill Request (Gabapentin, Furosemide, Quetiapine) 03/15/2023 1:00 PM CHANNEL DEVELOPMENT DIRECTOR Orders Only [address] [address] Lab, [place] 03/15/2023 Travel 03/07/[address] [address] Shaqra, Zhane Анна, DO Results 03/03/[address] [address] Nelsonqra Zhane Анна, DO Refill Request (Ammonium Lac Cre 12% ) 03/02/2023 1:45 PM CHANNEL DEVELOPMENT DIRECTOR Office Visit [address] [address] Nelsonqra Zhane Анна, DO Diabetes (6 month check ) 03/02/2023 Travel 02/21/2023 9:30 AM CDT Office Visit [address] [address] Johan Ye MD Telehealth; Follow Up 02/21/2023 Travel 02/21/[address] [address] Nelsonqra, Zhane Анна, DO Refill Request (Melatonin) 02/17/[address] [address] Zhane Stanley, DO Results 02/14/2023 1:00 PM CDT Ancillary Procedure [facility] [address] [place] [address] 02/14/2023 Travel from Last 3 Months Immunizations [...] Comments Blood Pressure 156/76 05/11/2023 8:49 AM CHANNEL DEVELOPMENT DIRECTOR Pulse 64 05/11/2023 8:49 AM CHANNEL DEVELOPMENT DIRECTOR Temperature 36.3 ??C (97.4 ??F) 11/22/2022 8:39 AM CD T Respiratory Rate 16 11/22/2022 8:39 AM CDT Oxygen Saturation 99% 03/02/2023 2:01 PM CHANNEL DEVELOPMENT DIRECTOR Inhaled Oxygen Concentration - - Weight 94 kg (207 lb 3.2 oz) 05/11/2023 8:49 AM CHANNEL DEVELOPMENT DIRECTOR Height 177.8 cm (5' 10) 11/22/2022 8:39 AM CDT Body Mass Index 29.73 11/22/2022 8:39 AM CDT Plan of Treatment Upcoming Encounters Date Type Department Care Team (Late st Contact Info) Description 06/13/2023 10:00 AM CHANNEL DEVELOPMENT DIRECTOR Office Visit [facility] [address] [place] [address] Johan Ye MD [address] [place] [address] 07/13/2023 9:30 AM CDT Office Visit [facility] [address] [place] [address] Johan Ye MD [address] [place] [address] 08/15/2023 10:00 AM CDT Office Visit [facility] [address] [place] [address] Johan Ye MD [address] [place] [address] 09/12/2023 9:00 AM CDT Office Visit [facility] [address] [place] [address] Johan Ye MD [address] [place] [address] Health Maintenance Due Date Last Done Comments Zoster (shingles) series for age 50+ (1 of 2) 01/22/2020 BMI (ht and wt on same day) for age 18+ 11/23/2023 11/22/2022, 04/15/2022, 08/05/2021, Additional history exists Low Dose CT (for lung CA) ag e 50-80 02/15/2024 02/14/2023, 12/21/2021, 05/07/2016 Depression screening for age 12+ 05/11/2024 05/11/2023, 04/14/2023, 04/13/2023, Additional history exists Fecal testing sDNA-FIT ([place] guard) for age 45-75 09/07/2025 09/07/2022 Tetanus [...] BASIC METABOLIC PANEL Routine 04/12/2023 9:07 AM CHANNEL DEVELOPMENT DIRECTOR Hyponatremia BASIC METABOLIC PANEL Routine 03/15/2023 1:00 PM CHANNEL DEVELOPMENT DIRECTOR Hyponatremia BASIC METABOLIC PANEL Routine 03/02/2023 1:52 PM CHANNEL DEVELOPMENT DIRECTOR Medication monitoring encounter HEMOGLOBIN A1C Routine 03/02/2023 1:52 PM CHANNEL DEVELOPMENT DIRECTOR Diabetes mellitus type 2, uncontrolled, with complications CT CHEST SCREENING LOW DOSE WO CONTRAST Routine 02/14/2023 1:23 PM CDT Encounter for screening for lung cancer Former smoker from Last 3 Months Results * (ABNORMAL) BASIC METABOLIC PANEL (04/12/2023 9:07 AM CHANNEL DEVELOPMENT DIRECTOR) Only the most recent of3 resultswithin the time period is included. SODIUM 129(L) 136 - 145 mmol/L 04/12/2023 4:10 PM CHANNEL DEVELOPMENT DIRECTOR [facility] POTASSIUM 5.4(H) 3.5 - 5.1 mmol/L 04/12/2023 4:10 PM [facility] CHLORIDE 93(L) 98 - 107 mmol/L 04/12/2023 4:10 PM [facility] CO2,TOTAL 27 22 - 29 mmol/L 04/12/2023 4:10 PM [facility] ANION GAP 9 5 - 18 04/12/2023 4:10 PM [facility] GLUCOSE 191(H) 70 - 99 mg/dL 04/12/2023 4:10 PM [facility] CALCIUM 9.1 8.6 - 10.0 mg/dL 04/12/2023 4:10 PM [facility] BUN 18 6 - 20 mg/dL 04/12/2023 4:10 PM [facility] CREATININE 1.06 0.70 - 1.20 mg/dL 04/12/2023 4:10 PM [facility] BUN/CREAT RATIO 17 10 - 20 4:10 PM [facility] eGFR 84(L) >90 mL/min/1.7 3m2 04/12/2023 4:10 PM [facility] Comment:As of 2021, eG FR is calculated by the CKD-EPI creatinine equation without race adjustment. ??eGFR can be influenced by muscle mass, exercise, and diet. ??The reported eGFR is an estimation only and is only applicable if the renal function is stable. Blood BLOOD SPECIMEN / Unknown Venipuncture / Unknown 04/12/2023 9:07 AM CHANNEL DEVELOPMENT DIRECTOR 04/12/2023 9:09 AM CHANNEL DEVELOPMENT DIRECTOR Zhane Stanley DO [facility] [address] [place] [address], * HEMOGLOBIN A1C MONITORING (POCT) (03/02/2023 1:52 PM CHANNEL DEVELOPMENT DIRECTOR) HEMOGLOBIN A1C MONITORING (POCT) 6.3 <=6.4 % 03/02/2023 2:04 PM CHANNEL DEVELOPMENT DIRECTOR [facility] Blood BLOOD SPECIMEN / Unknown Venipuncture / Unknown 03/02/2023 1:52 PM CHANNEL DEVELOPMENT DIRECTOR 03/02/2023 1:54 PM CHANNEL DEVELOPMENT DIRECTOR Narrative [facility] - 03/02/2023 2:04 PM CHANNEL DEVELOPMENT DIRECTOR ? (<=6.9%) ? Indicates good control ? (7.0% to 7.9%) ? Indicates fair control ? (>=8.0%) ? Indicates poor control ?? NOTE: ??These thresholds are guidelines and ?individual targets may vary. Falsely low levels may be seen with: Recent Transfusion, Recent Significant Blood Loss, Hemolytic Diseases, or Falsely elevated levels may be seen with: Untreated Anemias, Splenectomy ? Zhane Stanley DO CHEMISTRY [facility] [address] [place] [address], * CT CHEST SCREENING LOW DOSE WO [...] Documents on File Type Date Recorded Patient Car Hop Expl anation POLST 08/20/2020 5:18 PM POLST [...] Code Status Discussion: Not Discussed Care Teams Preflight Inspector Relationship Specialty Start Date End Date Zhane Stanley DO [facility] [place] [address] PCP - General Internal Medicine 09/08/20 Glenys Alcantar MD [address] [place] [address] Endocrinology 05/03/17 [facility] [address] [place] [address] 05/21/20 Samantha Grayson, PharmD [address] [facility] [facility] [place] [address] Pharmacist Medication Management Pharmacology 10/21/20
--- OUTSIDE RECORDS SUMMARY | 2023-05-14 12:15 | XMS_ITS | Clinical Summary ---
Author Name Unknown Organization [facility] Address [address] [address] Care Team Providers Care Forklift Supervisor Name Role Phone Gagandeep Hinojosa MD Primary Care Provider [phone] Source Comments You are receiving this document [...] for each transition of care or referral. [facility] Allergies Active Allergy Reactions Criticality Noted Date [...] a day. 1 Each 0 06/09/2016 Active Te[employer] TechUCH ULTRA CONTROL solutionIndications :Uncontrolled type 2 diabetes [...] 80 MG tabletIndications:A SHD (arteriosclerotic heart disease) ([facility]),Hyperlipidemi a with target LDL less than 70 ([facility]) Take 1 tablet by mouth once daily 90 Tablet 3 08/10/2019 Active Additional Information Patient not taking.Reported on 08/28/2019 glucose 4 gram chewable tabletIndications:H ypoglycemia ([facility]) Chew and swallow 4 Tablets by mouth once as needed (Blood sugar less than 70). 30 Tablet 1 10/05/2019 Active insulin degludec 200 UNIT/ML SOPNIndications:Unc ontrolled type 2 diabetes mellitus with hyperglycemia ([facility]) Inject 32 Units subcutaneously daily. 12 mL 0 10/08/2019 Active amLODIPine (NORVASC) 10 MG tabletIndications:E ssential hypertension ([facility]) Take 1 Tablet by mouth daily. 90 Tablet 3 12/04/2019 Active Continuous Blood Gluc Sensor (FREESTYLE TALAT 14 DAY SENSOR) MISCIndications:Unc ontrolled type 2 diabetes mellitus with hyperglycemia (C) Use as directed. Change every 14 days. 6 Each 4 12/04/2019 Active Continuous Blood Gluc Veterinary Technologist (FREESTYLE TALAT 2 READER SYSTM) DEVIIndications:Unc ontrolled type 2 diabetes mellitus with hyperglycemia (C) Use to scan blood sugars per field tech instructions. 1 Each 0 12/04/2019 Active metFORMIN [...] migh t be different from the original. Tire Fixer: Lesly Rodrigues [facility] Yaritza [phone] Care coordination focus: T2DM, financial resources Living situation: lives with spouse Important notes: SSDI, significant insulin resistance, regularly reaches Medicare Coverage Gap and cannot afford insulin Problem Noted Date Diagnosed Date Non-proliferative diabetic retinopathy 0 Hyponatremia 01/16/2018 Tinea versicolor 07/18/2015 Tobacco use disorder 10/26/2012 Anemia 05/02/2012 Overview: Anemia, unspecified Microalbuminuria 02/04/2012 RI, old 09/16/2011 History of PTCA 09/16/2011 Overview: [...] Bipolar I disorder 09/15/2005 Overview: LW Onset: [id number] ; Bipolar I Dis Resolved Problems Problem Noted Date Diagnosed Date Resolved Date Tobacco abuse 02/24/2016 12/18/2018 ACS (acute coronary syndrome) 10/25/2012 02/16/2017 Mass on back 05/02/2012 10/25/2012 Health prison, active care coordination 03/22/2012 07/27/2018 Overview: Tire Fixer: JOSETTE Yip [phone] Care coordination focus: T2DM, financial resources Living situation: lives with spouse Important notes: SSDI, significant insulin resistance, uses Relion insulin, commonly reaches Medicare Coverage Gap See care plan under Chart Review > Misc Reports > AMB [facility] CARE PLAN REPORT Last Assessment & Plan: Tire Fixer: Lesly Rodrigues [facility] [phone] Care coordination focus: mental health Living situation: Lives with Important notes: mh case management starting LFTs abnormal 02/02/2012 10/25/2012 S/P angioplasty with stent 05/26/2011 0 10/25/2012 Overview: Apr 2011 Plantar wart 05/26/2011 10/25/2012 Acute RI 05/01/2011 02/01/2012 Hypertriglyceridemia 12/11/2010 013 Overview: >5000 [...] mos) 03/14/2013 Influenza IIV4 (Quadrivalent ) 0.5mL (80734) 01/07/2020,01/16/2018,02/16/2017,2015,03/27/2015,01/16/2014,03/14/2013 Influenza, Unspecified Formulation 08/23,03/14/2013,03/17/2009,2006,03/23/2006,05/19/2005,03/12/2002 PPSV23 (Pneumovax) [...] Comments Blood Pressure 132/88 06/09/2020 4:43 PM DIESEL MACHINIST Pulse 99 06/09/2020 4:43 PM DIESEL MACHINIST Temperature 38.2 ??C (100.8 ??F) 05/02/2019 11:31 AM DIESEL MACHINIST Respiratory Rate 16 03/07/2013 2:52 PM DIESEL MACHINIST Oxygen Saturation 97% 10/27/2012 3:52 PM CDT Inhaled Oxygen Concentration - - Weight 88.9 kg (196 lb) 06/09/2020 4:43 PM DIESEL MACHINIST Height 177.8 cm (5' 10) 12/04/2019 10:49 [...] 4:27 AM 05/01/2011 12:21 PM Care Teams Forklift Supervisor Relationship Specialty Start Date End Date Gagandeep Hinojosa MD [address] [place] [address] PCP - General 05/17/12 Vane Zarate Psychiatrist Psychiatry 03/22/12 [facility] Psychotherapist 08/04/17 [facility] Gas Welding Machine Operator 09/13/17
--- OUTSIDE RECORDS SUMMARY | 2023-05-14 12:15 | XMS_ITS | Encounter Summary ---
Author Name Unknown Organization [facility] Address [address] [place] [address] Care Team Providers Care Marketing Clerk Name Role Phone Gagandeep Hinojosa MD Primary Care Provider [phone] Reason for Visit * Reason Onset Date Comments Refill 02/01/2023 Diphenhydramine 25mg Capsule Encounter Details Date Type Department Care Team Description 02/01/2023 Telephone [facility] [address] [facility] [place], [place] [id number] Gagandeep Hinojosa MD [address] [place], [place] [phone] Refill (Diphenhydramine 25mg Capsule) Social History Tobacco [...] 2:03 PM CDT Spoke to Satnam at [facility]. Patient appears to be a [...] every 8 hours as needed for allergies [facility] PH: documented in this encounter Plan of Treatment Not on file documented as of this encounter Visit Diagnoses Not on filedocumented in this encounter Care Teams Marketing Clerk Relationship Specialty Start Date End Date Gagandeep Hinojosa MD [address] [facility] [place] [address] PCP - General 05/17/12 Vane Zarate Psychiatrist Psychiatry 03/22/12 [facility] Psychotherapist 08/04/17 [facility] Director Stars 09/13/17 documented as of this encounter
--- NOTE | 2023-05-14 12:26 | ED.GENADULT ---
HPI - General Adult General Chief complaint: Dizziness/Vertigo Stated complaint: Low BP Time Seen by Provider: 05/14/23 11:46 Source: patient and other (Care Staff at assisted living) Mode of arrival: EMS Limitations: no limitations History of Present Illness HPI narrative: Patient is a 53-year-old male presenting to the emergency department for an episode of slurred speech and weakness. He has a history of type 2 diabetes on insulin. He also states he has tardive dyskinesia at baseline affecting both hands. Patient states he was at the cafeteria at his living facility when he dropped his plate. He is also having slurred speech. His blood pressure was checked at that time and he states he was 80s over 60s. He states he then ate an after that symptoms have fully resolved. He states he feels back to normal at this time with no residual effects. Some states he believes his blood sugar was checked prior to him eating and was in the 80s. He does take insulin but is told not take his insulin and his blood sugars under 90. States he does not think it felt like hypoglycemia causing his symptoms. Denies ever having symptoms like this before. Denies fevers, chills, weakness, numbness, headache, vision changes, abdominal pain, chest pain, shortness of breath. I spoke to the nursing a to witness everything at his assisted living facility. She states he has done self like this before and it is always been behavioral. They initially thought it was behavioral again. Prior to park the she says his blood sugar was 135 and then around 10:30 he came out of his room walking with a him considering his speech. In the believe this was a behavioral issue that he has. A continue to monitor him and then noted his blood pressure on the machine was 95/60 in with a temp did a manual blood pressure it was difficult but they believe it was in the 80s/60s. She then checked his blood sugar multiple times and seemed to jump around to she is not sure exactly what was but says the lows was in the 80s. She did not talk to the RN who recommended she get transferred to emergency department. At that point he went into his room in came back out a few minutes later excited and asymptomatic. Related Data Home Medications Medication Instructions Recorded Confirmed alprazolam 0.5 mg tablet 0.5 mg PO BID 02/10/22 11/10/22 aspirin 81 mg tablet,delayed 81 mg PO DAILY 02/10/22 11/10/22 release (Ecotrin Low Strength) buspirone 10 mg tablet 30 mg PO TID 02/10/22 11/10/22 divalproex 500 mg tablet,delayed 1,000 mg PO BID 02/10/22 11/10/22 release empagliflozin 10 mg tablet 10 mg PO DAILY 02/10/22 11/10/22 (Jardiance) famotidine 20 mg tablet 20 mg PO BID 02/10/22 11/10/22 gabapentin 300 mg capsule 900 mg PO TID 02/10/22 11/10/22 insulin aspart U-100 100 unit/mL 10 unit subcut .tid WITH MEALS 02/10/22 11/10/22 (3 mL) subcutaneous pen (Novolog FlexPen U-100 Insulin aspart) insulin degludec 200 unit/mL (3 28 unit subcut QHS 02/10/22 11/10/22 mL) subcutaneous pen (Tresiba FlexTouch U-200 insulin) metformin 1,000 mg tablet 1,000 mg PO BID 02/10/22 11/10/22 metoprolol succinate 50 mg 50 mg PO DAILY 02/10/22 11/10/22 tablet,extended release 24 hr multivitamin (Daily Multi-Vitamin 1 tab PO DAILY 02/10/22 11/10/22 tablet) quetiapine 200 mg tablet 200 mg PO HS 02/10/22 11/10/22 rosuvastatin 20 mg tablet 20 mg PO HS 02/10/22 11/10/22 nicotine (polacrilex) 2 mg buccal 2 mg buccal Q8H PRN 08/25/22 11/10/22 mini lozenge paliperidone palmitate 39 mg/0.25 39 mg IM Q30D 09/29/22 11/10/22 mL intramuscular syringe (Invega Sustenna) Previous Rx's Medication Instructions Recorded furosemide 20 mg tablet 20 mg PO DAILY #30 tabs 02/15/22 Allergies Allergy/AdvReac Type Severity Reaction Status Date / Time aripiprazole [From Abilify] Allergy Mild Verified 11/10/22 09:59 bupropion Allergy Mild Verified 11/10/22 09:59 haloperidol [From Haldol] Allergy Mild Verified 11/10/22 09:59 nitroglycerin Allergy Mild Verified 11/10/22 09:59 thiothixene [From Navane] Allergy Mild Verified 11/10/22 09:59 trifluoperazine Allergy Mild tremors, Verified 11/10/22 09:59 [From Stelazine] seizure ziprasidone Allergy Mild Verified 11/10/22 09:59 Review of Systems Status of ROS: Reports: 10 or more systems reviewed and unremarkable except as noted in History and below [facility] PFS Medical History History of myocardial infarction ?I25.2 - Old myocardial infarction (ICD-10) ASHD (arteriosclerotic heart disease) (05/04/11) ?I25.10 - Atherosclerotic heart disease of [place] coronary artery without angina pectoris (ICD-10) Type 2 diabetes mellitus, uncontrolled (12/11/10) Tinea versicolor (07/18/15) ?B36.0 - Pityriasis versicolor (ICD-10) Obesity, Class I, BMI 30-34.9 (09/16/11) ?E66.9 - Obesity, unspecified (ICD-10) Nonspecific abnormal results of liver function study (12/22/09) ?R94.5 - Abnormal results of liver function studies (ICD-10) Non-proliferative diabetic retinopathy (05/02/19) ?E11.3299 - Type 2 diabetes mellitus with mild nonproliferative diabetic retinopathy without macular edema, unspecified eye (ICD-10) Microalbuminuria (02/04/12) ?R80.9 - Proteinuria, unspecified (ICD-10) MD, old (09/16/11) ?I25.2 - Old myocardial infarction (ICD-10) Hyperlipidemia with target LDL less than 70 (06/08/11) ?E78.5 - Hyperlipidemia, unspecified (ICD-10) Erectile dysfunction (01/22/11) ?N52.9 - Male erectile dysfunction, unspecified (ICD-10) Dermatophytosis of body (09/04/10) ?B35.4 - Tinea corporis (ICD-10) Coronary atherosclerosis (12/22/09) ?I25.10 - Atherosclerotic heart disease of [place] coronary artery without angina pectoris (ICD-10) Anemia (05/02/12) ?D64.9 - Anemia, unspecified (ICD-10) Lower extremity edema ?R60.0 - Localized edema (ICD-10) Diabetic retinopathy ?E11.319 - Type 2 diabetes mellitus with unspecified diabetic retinopathy without macular edema (ICD-10) Vitamin D deficiency ?E55.9 - Vitamin D deficiency, unspecified (ICD-10) Generalized anxiety disorder ?F41.1 - Generalized anxiety disorder (ICD-10) History of seizure ?Z87.898 - Personal history of other specified conditions (ICD-10) Diabetic peripheral neuropathy ?E11.42 - Type 2 diabetes mellitus with diabetic polyneuropathy (ICD-10) Coronary artery disease ?I25.10 - Atherosclerotic heart disease of [place] coronary artery without angina pectoris (ICD-10) Hypertension ?I10 - Essential (primary) hypertension (ICD-10) Diabetes mellitus type 2 in obese ?E11.69 - Type 2 diabetes mellitus with other specified complication (ICD-10) ?E66.9 - Obesity, unspecified (ICD-10) Tobacco use disorder ?F17.200 - Nicotine dependence, unspecified, uncomplicated (ICD-10) Hyponatremia ?E87.1 - Hypo-osmolality and hyponatremia (ICD-10) Dyslipidemia ?E78.5 - Hyperlipidemia, unspecified (ICD-10) Bipolar 1 disorder ?F31.9 - Bipolar disorder, unspecified (ICD-10) Surgical History Status post angioplasty with stent ?Z95.820 - Peripheral vascular angioplasty status with implants and grafts (ICD-10) History of PTCA (09/16/11) ?Z98.61 - Coronary angioplasty status (ICD-10) History of coronary artery stent placement ?Z95.5 - Presence of coronary angioplasty implant and graft (ICD-10) Family History Father Alcohol dependence Diabetes Coronary artery disease Sister Alcohol dependence Diabetes Mother Pulmonary fibrosis Social History Narrative: 52-year-old male resident of [facility]. He has lived there since earlier in 2020. Code status is full. Healthcare power of attorney law clerk would be his father, Farhan Krishnamurthy. Other close family is his sister. He has been smoking about a pack of cigarettes a day since age 16. He does not drink alcohol. He does not use recreational drugs. Highest level of school completed/degree received: some college, no degree Smoking Status: Former smoker Do you use any of these nicotine containing products: None Second hand tobacco smoke exposure: Yes How often do you have a drink containing alcohol: never AUDIT-C Alcohol total score: 0 Non-prescribed substance use: denies use Caffeine: Yes (2 cans pop daily) Do you think of yourself as: straight/heterosexual Gender Identity: male service: No Exam Narrative: Exam Narrative: Const: Well-nourished, Well-developed, in no distress Eyes: PERRL, no conjunctival injection, and symmetrical lids HENT: Atraumatic external nose and ears. Moist mucous membranes. Neck: Symmetric, trachea midline, No thyromegaly. CVS: RRR, No murmurs or gallops. Peripheral pulses 2+ and equal in all extremities RESP: Unlabored respiratory effort. Clear to auscultation bilaterally. GI: Nontender/Nondistended, No rebound or guarding. MSK:Extremities w/o deformity, Normal Active ROM Skin: Warm, Dry. No rashes or lesions. Neuro: Normal Muscle tone, Cranial nerves 2-12 grossly intact, normal [id number], normal [id number], normal gait, normal strength 5/5 upper lower extremities bilaterally, normal sensation upper and lower extremities bilaterally, normal rapid alternating movements. Psych: Awake, Alert, & Oriented x3. Appropriate mood and affect. Const: Vital Signs, click to edit/add: Vital Signs - 24 hr 05/14/23 11:30 05/14/23 13:05 05/14/23 13:06 Temperature 97.4 F L Pulse Rate 76 72 Pulse Rate [Pulse Oximeter] 79 Respiratory Rate 18 Blood Pressure 129/83 Blood Pressure [Ri ght Upper Arm] 113/66 Pulse Oximetry 96 92 91 Oxygen Delivery Me thod Room Air 05/14/23 13:15 05/14/23 13:30 05/14/23 13:31 Temperature Pulse Rate 71 71 72 Pulse Rate [Pulse Oximeter] Respiratory Rate Blood Pressure 137/76 Blood Pressure [Ri ght Upper Arm] Pulse Oximetry 92 91 93 Oxygen Delivery Me thod 05/14/23 13:32 05/14/23 13:45 05/14/23 14:16 Temperature Pulse Rate 71 72 74 Pulse Rate [Pulse Oximeter] Respiratory Rate Blood Pressure 149/72 H Blood Pressure [Ri ght Upper Arm] Pulse Oximetry 94 97 95 Oxygen Delivery Me thod 05/14/23 14:17 05/14/23 14:31 05/14/23 14:56 Temperature Pulse Rate 75 74 Pulse Rate [Pulse Oximeter] Respiratory Rate Blood Pressure 159/83 H Blood Pressure [Ri ght Upper Arm] Pulse Oximetry 95 94 Oxygen Delivery Me thod 05/14/23 15:00 05/14/23 15:01 05/14/23 15:30 Temperature Pulse Rate 72 75 74 Pulse Rate [Pulse Oximeter] Respiratory Rate Blood Pressure 153/86 H Blood Pressure [Ri ght Upper Arm] Pulse Oximetry 95 94 93 Oxygen Delivery Me thod 05/14/23 15:32 05/14/23 15:33 Temperature Pulse Rate 74 74 Pulse Rate [Pulse Oximeter] Respiratory Rate Blood Pressure 158/83 H Blood Pressure [Ri ght Upper Arm] Pulse Oximetry 92 93 Oxygen Delivery Me thod Course Vital Signs Vital signs: Initial Vital Signs Temperature 97.4 F L 05/14/23 11:30 Temperature Source Temporal Artery Scan 05/14/23 11:30 Pulse Rate 79 05/14/23 11:30 Pulse Rhythm Regular 05/14/23 11:30 Respiratory Rate 18 05/14/23 11:30 Blood Pressure 113/66 05/14/23 11:30 Blood Pressure Mean 81 05/14/23 11:30 Blood Pressure Position Supine 05/14/23 11:30 Pulse Oximetry 96 05/14/23 11:30 Oxygen Delivery Method Room Air 05/14/23 11:30 Vital Signs Temperature 97.4 F L 05/14/23 11:30 Pulse Rate 79 05/14/23 11:30 Respiratory Rate 18 05/14/23 11:30 Blood Pressure 113/66 05/14/23 11:30 Pulse Oximetry 96 05/14/23 11:30 Oxygen Delivery Method Room Air 05/14/23 11:30 Temperature 97.4 F L 05/14/23 11:30 Pulse Rate 74 05/14/23 15:33 Respiratory Rate 18 05/14/23 11:30 Blood Pressure 158/83 H 05/14/23 15:32 Pulse Oximetry 93 05/14/23 15:33 Oxygen Delivery Method Room Air 05/14/23 11:30 Medications Administered Medications: Discontinued Medications Generic Name Dose Route Start Last Admin Trade Name Nazia PRN Reason Stop Dose Admin Sodium Chloride 1,000 mls @ 1,000 mls/hr 05/14/23 13:45 05/14/23 14:44 0.9 % Sodium Chloride 1000 Ml IV 05/14/23 14:44 Infused .Q1H [facility]ZEL Infusion Medical Decision Making MDM Narrative Medical decision making narrative: Patient is a 53-year-old male presenting to emergency department for hypotension, slurred speech, difficulty walking. His vital signs have been stable here in the emergency department with no hypotension. Of note he says symptoms resolved after he ate while staff at his assisted living says symptoms resolved after he was told he can go to the emergency department. They do state he has had behaviors like this before. He is asymptomatic here in the emergency department. I do not believe I need to call a code stroke at this time. We will order troponin, point of care glucose, CBC, CMP, COVID/flu/RSV, magnesium. CT head and CTA head and neck were ordered. Lab workup returned showing no concerning abnormalities. His hemoglobin appears to be at baseline. His sodium slightly low at 130 and I did give him 1 L of normal saline. This is unlikely to have caused his symptoms. COVID/flu/RSV were negative. Point of care glucose was 110 and he is not hypoglycemic. CT and CTA showed no concerning findings reviewed by myself and the radiologist. After the fluids and blood pressure came up even more. I am not sure if he was truly hypotensive at our and not at his assisted living a right now his pressure is are normal. After fluids he is actually hypertensive. Due to his stroke-like symptoms I did speak to the on-call neurologist from [facility] in explain to him the patient's possible hypotension that has resolved and that his symptoms seem to resolve after he was told he could come to the hospital. I was then informed he was recently switched off his quetiapine and onto Benadryl. Neurology believe the patient can be discharged from their standpoint based on my description to them. Patient discharged home back to his assisted living Lab Data Labs: Lab Results 05/14/23 05/14/23 Range/Units 12:50 13:03 WBC 8.18 (4.50-11.00) K/uL RBC 3.81 L (4.30-5.90) m/uL Hgb 11.1 L (13.5-17.5) gm/dL Hct 32.9 L (37.0-53.0) % MCV 86 (80-100) fL MCH 29 (26-34) pg MCHC 34 (32-36) gm/dL RDW Coeff of Arlene 12.7 (11.5-15.5) % Plt Count 168 (140-440) K/uL Neut % (Auto) 61.3 (42.0-72.0) % Lymph % (Auto) 18.7 L (20-44) % Weber % (Auto) 19.4 H (0.0-11.0) % Eos % (Auto) 0.1 (0.0-7.0) % Baso % (Auto) 0.4 (0.0-3.0) % Neut # (Auto) 5.01 (1.7-7.0) K/uL Lymph # (Auto) 1.50 (0.90-2.90) K/uL Weber # (Auto) 1.60 H (0.00-0.90) K/UL Eos # (Auto) 0.01 (0.00-0.50) K/uL Baso # (Auto) 0.03 (0.00-0.30) K/uL Abs Immat Gran (auto) 0.01 (0.00-0.30) K/uL Imm/Tot Granulo (auto) 0.1 % Sodium 130 L (135-149) mmol/L Potassium 4.6 (3.6-5.1) mmol/L Chloride 98 (96-114) mmol/L Carbon Dioxide 23 (20-32) mmol/L Anion Gap 9 (7-15) mEq/L BUN 25 (7-30) mg/dL Creatinine 1.3 (0.5-1.5) mg/dL Estimated Creat Clear 67.85 Estimated GFR 66 ml/min Glucose 113 (60-115) mg/dL Calcium 8.6 (8.4-10.6) mg/dL Magnesium 2.3 (1.5-2.6) mg/dL Total Bilirubin 0.2 (0.1-1.5) mg/dL AST 35 (12-35) U/L ALT 16 (4-50) U/L Alkaline Phosphatase 46 (40-150) U/L Troponin I 0.01 (0.01-0.04) ng/mL Total Protein 6.5 (6.0-8.3) g/dL Albumin 3.5 (3.3-5.0) g/dL SARS-CoV-2 (PCR) Negative SARS-CoV-2 (Negative) Influenza Type A (PCR) Negative PCR FLU A (Negative) Influenza Type B (PCR) Negative PCR FLU B (Negative) RSV (PCR) Negative PCR RSV (Negative) POC Glucose 110 (60-115) mg/dl Imaging Data CT scan head: Radiologist's impression: No acute intracranial hemorrhage or mass effect. Please note that all CT scans at this facility use dose modulation, iterative reconstruction, and/or weight-based dosing when appropriate to reduce radiation dose to as low as reasonably achievable. Dictated by Shaggy Bruno MD @ 05/14/2023 1:31:26 PM CTA head: Radiologist's impression: Intracranial atherosclerotic disease as described; no large vessel occlusion. Please note that all CT scans at this facility use dose modulation, iterative reconstruction, and/or weight-based dosing when appropriate to reduce radiation dose to as low as reasonably achievable. Dictated by Dylan Duff MD @ 05/14/2023 3:02:03 PM CTA neck: Radiologist's impression: Carotid atherosclerosis without significant stenosis. Please note that all CT scans at this facility use dose modulation, iterative reconstruction, and/or weight-based dosing when appropriate to reduce radiation dose to as low as reasonably achievable. Dictated by Dylan Duff MD @ 05/14/2023 3:02:56 PM ECG Data Attestation: I personally reviewed and interpreted this ECG as follows: Prior ECG tracings: available for review Interpretation: Normal sinus rhythm with rate is 71 beats per minute, normal intervals, normal axis, no ST abnormalities. Is are to say for certain if there were T-wave inversions in the lateral leads but does appear that it is upright. Other than that no other abnormalities compared to previous EKG Discharge Plan Discharge Clinical Impression: Transient hypotension Patient Disposition: Home, Self-Care Condition: Stable Instructions: Hypotension (DC) Additional Instructions: Follow-up with your primary care provider. Return to the emergency department for new or worsening symptoms Prescriptions: No Action nicotine (polacrilex) 2 mg mini lozenge 2 mg buccal Q8H PRN Invega Sustenna 39 mg/0.25 mL syringe 39 mg IM Q30D alprazolam 0.5 mg tablet 0.5 mg PO BID aspirin [Ecotrin Low Strength] 81 mg tablet,delayed release (DR/EC) 81 mg PO DAILY buspirone 10 mg tablet 30 mg PO TID divalproex 500 mg tablet,delayed release (DR/EC) 1,000 mg PO BID famotidine 20 mg tablet 20 mg PO BID gabapentin 300 mg capsule 900 mg PO TID Jardiance 10 mg tablet 10 mg PO DAILY metformin 1,000 mg tablet 1,000 mg PO BID metoprolol succinate 50 mg tablet extended release 24 hr 50 mg PO DAILY multivitamin [Daily Multi-Vitamin] Tablet 1 tab PO DAILY insulin aspart U-100 [Novolog FlexPen U-100 Insulin] 100 unit/mL (3 mL) insulin pen 10 unit subcut .tid WITH MEALS quetiapine 200 mg tablet 200 mg PO HS rosuvastatin 20 mg tablet 20 mg PO HS insulin degludec [Tresiba FlexTouch U-200] 200 unit/mL (3 mL) insulin pen 28 unit subcut QHS furosemide 20 mg tablet 20 mg PO DAILY Qty: 30 2RF Follow Up/Referrals: Zhane Stanley DO [Primary Care Provider] - Stand Alone Forms: [facility] Info Instructions
[2023-05-14 12:58] LABS: Basophils Absolute Auto 0.03 K/uL (0.00-0.30); Basophils Percent Auto 0.4 % (0.0-3.0); Eosinophils Absolute Auto 0.01 K/uL (0.00-0.50); Eosinophils Percent Auto 0.1 % (0.0-7.0); Hematocrit 32.9 % (37.0-53.0); Hemoglobin* 11.1 gm/dL (13.5-17.5); Immature Granulocytes Abs Auto 0.01 K/uL (0.00-0.30); Immature Granulocytes Pct Auto 0.1 %; Lymphocytes Percent Auto 18.7 % (20-44); Mean Corpuscular HGB Conc 34 gm/dL (32-36); Mean Corpuscular Hemoglobin 29 pg (26-34); Mean Corpuscular Volume 86 fL (80-100); Monocytes Percent Auto 19.4 % (0.0-11.0); Neutrophils Absolute Auto 5.01 K/uL (1.7-7.0); Neutrophils Percent Auto 61.3 % (42.0-72.0); Platelet Count* 168 K/uL (140-440); RDW Coefficient of Variation % 12.7 % (11.5-15.5); Red Blood Count 3.81 m/uL (4.30-5.90); White Blood Count* 8.18 K/uL (4.50-11.00)
[2023-05-14 13:02] LABS: Slide Review Reflex No
[2023-05-14 13:09] LABS: Glucose, Point-of-Care* 110 mg/dl (60-115)
[2023-05-14 13:14] LABS: Albumin* 3.5 g/dL (3.3-5.0); Chloride* 98 mmol/L (96-114); Potassium* 4.6 mmol/L (3.6-5.1); Sodium* 130 mmol/L (135-149)
[2023-05-14 13:16] LABS: Creatinine* 1.3 mg/dL (0.5-1.5); Est. Creatinine Clearance* 67.85; Estimated Glomerular Filt Rate 66 ml/min
[2023-05-14 13:17] LABS: Alanine Aminotransferase* 16 U/L (4-50); Alkaline Phosphatase* 46 U/L (40-150); Anion Gap 9 mEq/L (7-15); Aspartate Amino Transferase* 35 U/L (12-35); Bilirubin Total* 0.2 mg/dL (0.1-1.5); Blood Urea Nitrogen* 25 mg/dL (7-30); Calcium* 8.6 mg/dL (8.4-10.6); Carbon Dioxide* 23 mmol/L (20-32); Glucose* 113 mg/dL (60-115); Total Protein* 6.5 g/dL (6.0-8.3)
[2023-05-14 13:18] LABS: Magnesium* 2.3 mg/dL (1.5-2.6)
[2023-05-14 13:29] LABS: Troponin I* 0.01 ng/mL (0.01-0.04)
--- NOTE | 2023-05-14 13:36 | CRLHL7_ITS ---
For Patients: As a result of the Century Cures Act, medical imaging exams and procedure reports are released immediately into your electronic medical record. You may view this report before your referring provider. If you have questions, please contact your health care provider. INDICATION: Acute stroke, slurred speech. TECHNIQUE: CTA head with contrast bolus tracking, 3D angiographic rendering using maximum intensity projection (MIP) and images permanently archived. FINDINGS: There is irregular heavily calcified plaque around both carotid siphons with moderate stenosis bilaterally. There is no large vessel occlusion. No aneurysm is identified. IMPRESSION: Intracranial atherosclerotic disease as described; no large vessel occlusion. Please note that all CT scans at this facility use dose modulation, iterative reconstruction, and/or weight-based dosing when appropriate to reduce radiation dose to as low as reasonably achievable. Dictated by Dylan Duff MD @ 05/14/2023 3:02:03 PM (Electronically Signed)
--- NOTE | 2023-05-14 13:36 | CRLHL7_ITS ---
For Patients: As a result of the Century Cures Act, medical imaging exams and procedure reports are released immediately into your electronic medical record. You may view this report before your referring provider. If you have questions, please contact your health care provider. INDICATION: Acute stroke, slurred speech. TECHNIQUE: CTA neck with contrast bolus tracking, 3D angiographic rendering using maximum intensity projection (MIP) and images permanently archived. FINDINGS: There is carotid atherosclerosis. There is no significant carotid artery stenosis or dissection. There is no significant vertebral artery stenosis or dissection. The soft tissues of the neck are within normal limits. The cervical spine is in normal alignment. Degenerative changes are noted in the cervical spine. IMPRESSION: Carotid atherosclerosis without significant stenosis. Please note that all CT scans at this facility use dose modulation, iterative reconstruction, and/or weight-based dosing when appropriate to reduce radiation dose to as low as reasonably achievable. Dictated by Dylan Duff MD @ 05/14/2023 3:02:56 PM (Electronically Signed)
[2023-05-14 13:37] LABS: PCR FLU A Negative PCR FLU A (Negative); PCR FLU B Negative PCR FLU B (Negative); PCR RSV Negative PCR RSV (Negative); SARS PCR* Negative SARS-CoV-2 (Negative)
[2023-05-14] MEDS: 0.9 % SODIUM CHLORIDE 1000 ml 1,000 ML IV (13:46)
--- NOTE | 2023-05-14 16:15 | ED.NURSE ---
spoke with Anni RN at [facility], gave update on pt condition and informed her that pt was currently up for discharge. Anni informed assembly instructions writer that staff will be on there way to pick him up after a 4pm med pass after assembly instructions writer's question, Anni stated pt should be fine to wait in the lobby for staff.
== END 2023-05-14 16:47 | disposition home or self-care (01) ==
PROVIDERS: Emergency Provider Student in an Organized Health Care Education/Training Program; PCP Family Medicine
DX: I95.89 Other hypotension (principal)
CPT/HCPCS: 36415; 70450; 70496; 70498; 80053; 82947; 83735; 84484; 85025; 87631; 93005; 96360; 99283; 99284; 99285; J7030; Q9967

== ENCOUNTER 2023-07-05 07:17 | Emergency (ER) | payer MEDICARE, MEDICAID, SELFPAY ==
[2023-07-05 07:31] VITALS: BP 175/102; PULSE 68; RESP 18; TEMP 36.1; O2SAT 99; BMI 28.0
--- NOTE | 2023-07-05 08:04 | ED_ITS ---
HPI - General Adult General Date Seen: 07/05/23 Chief complaint: Psychiatric Problem/Disorder Stated complaint: Suicidal thoughts Time Seen by Provider: 07/05/23 08:03 History of Present Illness HPI narrative: 53-year-old male with a history of mental health problems, possibly bipolar disorder and generalized anxiety disorder. Also has a medical history of type 2 diabetes, obesity, coronary artery disease with previous AK, hyperlipidemia, hypertension, her lack trial dysfunction, peripheral neuropathy, tobacco use. He is brought to the ER today by his usp staff with concern that he may be feeling suicidal History is limited because the patient is not able to really to provide clear information about his state of mind. I did contact the patient's usp staff, Margarita, by phone. She says that Nathan has been up a bit more anxious, having racing thoughts for the past couple of weeks. Apparently the patient and Margarita had a conversation yesterday, but it is not clear what they were talking about. This morning the patient came to many and said that he was ?at that point?. Margarita took this to mean that he was feeling suicidal. As far as we know he does not have a plan and he has not taken any action to harm himself yet. Many feels like he might need to be ?committed. ? She believes he has been taking his meds. He has an outpatient mental health provider at [facility]. Apparently sees them once a month. His providers have not been aware that he has been cycling lately. No recent changes in his meds. We attempted to obtain history directly from the patient. Patient is is not really able to clarify what he and his usp staff were talking about this morning. He is very vague and tangential. He does not answer direct questions. When asked him if he is suicidal he says that he has been and 3 times. It sounds like his last with worse was about a year ago. When asked him how he has been feeling lately he says that he he woke up with ?a generalized feeling? this morning. When asked him what the feeling was, he can not say. He deflects that question by saying that he needs breakfast. I had a long conversation with the patient. As far as I can tell it sounds like he has been very anxious recently. He has had racing thoughts. He does not use the word suicide, however it sounds like his staff felt that he was unsafe in his usp this morning. Related Data Home Medications Medication Instructions Recorded Confirmed alprazolam 0.5 mg tablet 0.5 mg PO BID 02/10/22 07/05/23 aspirin 81 mg tablet,delayed 81 mg PO DAILY 02/10/22 07/05/23 release (Ecotrin Low Strength) buspirone 10 mg tablet 30 mg PO BID 02/10/22 07/05/23 divalproex 500 mg tablet,delayed 1,000 mg PO BID 02/10/22 07/05/23 release empagliflozin 10 mg tablet 10 mg PO DAILY 02/10/22 07/05/23 (Jardiance) famotidine 20 mg tablet 20 mg PO BID 02/10/22 11/10/22 gabapentin 300 mg capsule 900 mg PO TID 02/10/22 07/05/23 insulin aspart U-100 100 unit/mL 10 unit subcut .tid WITH MEALS 02/10/22 07/05/23 (3 mL) subcutaneous pen (Novolog FlexPen U-100 Insulin aspart) insulin degludec 200 unit/mL (3 28 unit subcut QHS 02/10/22 07/05/23 mL) subcutaneous pen (Tresiba FlexTouch U-200 insulin) metformin 1,000 mg tablet 1,000 mg PO BID 02/10/22 07/05/23 metoprolol succinate 50 mg 50 mg PO DAILY 02/10/22 07/05/23 tablet,extended release 24 hr multivitamin (Daily Multi-Vitamin 1 tab PO DAILY 02/10/22 07/05/23 tablet) quetiapine 200 mg tablet 50 mg PO BID PRN 02/10/22 07/05/23 rosuvastatin 20 mg tablet 20 mg PO HS 02/10/22 07/05/23 nicotine (polacrilex) 2 mg buccal 2 mg buccal Q8H PRN 08/25/22 07/05/23 mini lozenge paliperidone palmitate 39 mg/0.25 234 mg IM Q3W 09/29/22 07/05/23 mL intramuscular syringe (Invega Sustenna) benzonatate 100 mg capsule 100 mg PO TID PRN 07/05/23 07/05/23 calcium carbonate 200 mg calcium 500 mg PO TID PRN 07/05/23 07/05/23 (500 mg) chewable tablet (Technology Keiretsu) diphenhydramine HCl 25 mg capsule 25 mg PO Q6-8H PRN 07/05/23 07/05/23 (Banophen) guaifenesin 100 mg/5 mL oral 100 mg PO Q6H PRN 07/05/23 07/05/23 liquid (Adult Tussin Chest Congestion) lisinopril 5 mg tablet 5 mg PO DAILY 07/05/23 07/05/23 loperamide 2 mg capsule 2 mg PO Q6H PRN 07/05/23 07/05/23 (Anti-Diarrheal (loperamide)) melatonin 5 mg disintegrating 5 mg PO PRN 07/05/23 tablet ondansetron HCl 4 mg tablet 4 mg PO Q8H PRN 07/05/23 07/05/23 polyethylene glycol 3350 17 17 g PO DAILY PRN 07/05/23 07/05/23 gram/dose oral powder (ClearLax) trihexyphenidyl 5 mg tablet 5 mg PO BID 07/05/23 07/05/23 Previous Rx's Medication Instructions Recorded furosemide 20 mg tablet 20 mg PO DAILY #30 tabs 02/15/22 quetiapine 50 mg tablet (Seroquel) 50 mg PO BID #30 tabs 07/05/23 Allergies Allergy/AdvReac Type Severity Reaction Status Date / Time aripiprazole [From Abilify] Allergy Mild Verified 11/10/22 09:59 bupropion Allergy Mild Verified 11/10/22 09:59 haloperidol [From Haldol] Allergy Mild Verified 11/10/22 09:59 nitroglycerin Allergy Mild Verified 11/10/22 09:59 thiothixene [From Navane] Allergy Mild Verified 11/10/22 09:59 trifluoperazine Allergy Mild tremors, Verified 11/10/22 09:59 [From Stelazine] seizure ziprasidone Allergy Mild Verified 11/10/22 09:59 [facility] Medical History History of myocardial infarction ?I25.2 - Old myocardial infarction (ICD-10) ASHD (arteriosclerotic heart disease) (05/04/11) ?I25.10 - Atherosclerotic heart disease of [place] coronary artery without angina pectoris (ICD-10) Type 2 diabetes mellitus, uncontrolled (12/11/10) Tinea versicolor (07/18/15) ?B36.0 - Pityriasis versicolor (ICD-10) Obesity, Class I, BMI 30-34.9 (09/16/11) ?E66.9 - Obesity, unspecified (ICD-10) Nonspecific abnormal results of liver function study (12/22/09) ?R94.5 - Abnormal results of liver function studies (ICD-10) Non-proliferative diabetic retinopathy (05/02/19) ?E11.3299 - Type 2 diabetes mellitus with mild nonproliferative diabetic retinopathy without macular edema, unspecified eye (ICD-10) Microalbuminuria (02/04/12) ?R80.9 - Proteinuria, unspecified (ICD-10) AK, old (09/16/11) ?I25.2 - Old myocardial infarction (ICD-10) Hyperlipidemia with target LDL less than 70 (06/08/11) ?E78.5 - Hyperlipidemia, unspecified (ICD-10) Erectile dysfunction (01/22/11) ?N52.9 - Male erectile dysfunction, unspecified (ICD-10) Dermatophytosis of body (09/04/10) ?B35.4 - Tinea corporis (ICD-10) Coronary atherosclerosis (12/22/09) ?I25.10 - Atherosclerotic heart disease of [place] coronary artery without angina pectoris (ICD-10) Anemia (05/02/12) ?D64.9 - Anemia, unspecified (ICD-10) Lower extremity edema ?R60.0 - Localized edema (ICD-10) Diabetic retinopathy ?E11.319 - Type 2 diabetes mellitus with unspecified diabetic retinopathy without macular edema (ICD-10) Vitamin D deficiency ?E55.9 - Vitamin D deficiency, unspecified (ICD-10) Generalized anxiety disorder ?F41.1 - Generalized anxiety disorder (ICD-10) History of seizure ?Z87.898 - Personal history of other specified conditions (ICD-10) Diabetic peripheral neuropathy ?E11.42 - Type 2 diabetes mellitus with diabetic polyneuropathy (ICD-10) Coronary artery disease ?I25.10 - Atherosclerotic heart disease of [place] coronary artery without angina pectoris (ICD-10) Hypertension ?I10 - Essential (primary) hypertension (ICD-10) Diabetes mellitus type 2 in obese ?E11.69 - Type 2 diabetes mellitus with other specified complication (ICD-10) ?E66.9 - Obesity, unspecified (ICD-10) Tobacco use disorder ?F17.200 - Nicotine dependence, unspecified, uncomplicated (ICD-10) Hyponatremia ?E87.1 - Hypo-osmolality and hyponatremia (ICD-10) Dyslipidemia ?E78.5 - Hyperlipidemia, unspecified (ICD-10) Bipolar 1 disorder ?F31.9 - Bipolar disorder, unspecified (ICD-10) Surgical History Status post angioplasty with stent ?Z95.820 - Peripheral vascular angioplasty status with implants and grafts (ICD-10) History of PTCA (09/16/11) ?Z98.61 - Coronary angioplasty status (ICD-10) History of coronary artery stent placement ?Z95.5 - Presence of coronary angioplasty implant and graft (ICD-10) Family History Father Alcohol dependence Diabetes Coronary artery disease Sister Alcohol dependence Diabetes Mother Pulmonary fibrosis Social History Narrative: 52-year-old male resident of [facility]. He has lived there since earlier in 2020. Code status is full. Healthcare power of litigation attorney associate would be his father, Farhan Krishnamurthy. Other close family is his sister. He has been smoking about a pack of cigarettes a day since age 16. He does not drink alcohol. He does not use recreational drugs. Highest level of school completed/degree received: some college, no degree Smoking Status: Former smoker Do you use any of these nicotine containing products: Smokeless Tobacco Second hand tobacco smoke exposure: No How often do you have a drink containing alcohol: never AUDIT-C Alcohol total score: 0 Non-prescribed substance use: denies use Caffeine: Yes (2 cans pop daily) Do you think of yourself as: straight/heterosexual Gender Identity: male service: No Exam Narrative: Exam Narrative: Constitutional: Appears well-developed and well-nourished. Alert. Conversant. Non toxic. HENT: Head: Atraumatic. Nose: Nose normal. Mouth/Throat: Oral mucosa is clear and moist. no trismus. Eyes: Conjunctivae normal. EOM normal. Pupils equal, round, and reactive to light. No scleral icterus. Neck: Normal range of motion. Neck supple. No tracheal deviation present. Cardiovascular: Normal rate, regular rhythm. No gallop. No friction rub. No murmur heard. Symmetric radial artery pulses Pulmonary/Chest: Effort normal. No stridor. No respiratory distress. No wheezes. No rales. No rhonchi . No tenderness. Abdominal: Soft. No distension. No mass. No tenderness. No rebound. No guarding. Musculoskeletal: RUE: Normal range of motion. No tenderness. No deformity LUE: Normal range of motion. No tenderness. No deformity RLE: Normal range of motion. No edema. No tenderness. No deformity LLE: Normal range of motion. No edema. No tenderness. No deformity Lymph: No cervical adenopathy. Neurological: Alert and oriented to person, place, and time. Normal strength. CN II-VII intact. No sensory deficit. GCS eye subscore is 4. GCS verbal subscore is 5. GCS motor subscore is 6. Normal coordination Skin: Skin is warm and dry. No rash noted. No pallor. Normal capillary refill. Psychiatric: Flat affect. Poor eye contact. He seems either very disorganized or very invasive in our conversation. I am really not even able to get a good sense from the patient what his concern was this morning that made him talk to his usp staff. What I gather from his usp staff, many, is that she told her that he was ?at that point? meaning that he was suicidal this morning. When I try to ask about the patient's feelings he asks for breakfast. When I try to gather further information about how he has been doing lately he deflects that question and indicates that he does not want inpatient mental health stay. I am not able to get a reliable history from the patient. Const: Vital Signs, click to edit/add: Vital Signs - 24 hr 07/05/23 07:31 07/05/23 08:08 Temperature 96.9 F L Pulse Rate [Pulse Oximeter] 68 Respiratory Rate 18 Blood Pressure [Ri ght Upper Arm] 175/102 H 175/95 H Pulse Oximetry 99 Oxygen Delivery Me thod Room Air Course Course ED Course: Recheck-patient doing well.. I discussed with Margarita from his usp. Recheck-patient is still calm. He agrees to stay to be seen by [facility] Recheck we were able to contact the patient's primary psychiatrist through [facility]. Had a conversation with his psychiatrist. Ultimately it sounds like the patient has anxiety may be somewhat chronic. Psychiatrist had been trying to titrate him off his meds over recent months. Psychiatrist recommends that we restart him back on Seroquel at 50 mg b.i.d., unless [facility] advises that he needs inpatient care. In that case he can restart on Seroquel while inpatient. he has an appointment upcoming with a psychiatrist in 8 days. It would be reasonable to restart the Seroquel today so that there is a trial. See if it is causing side effects or improving his symptoms before the appointment next week Recheck-patient was evaluated by [facility]. They feel the patient's symptoms are probably largely anxiety driven. The they do not feel the patient meets criteria for inpatient mental health admission at this point. [facility] also notes that the patient has apparently been increasingly anxious and taking up more and more the usp staff faye I am. prison staff told [facility] that the patient may they may be coming to the point where he will be exceeding the resources at [place]. It sounds like, at this point, they are comfortable taking him back today. If symptoms are not improved on Seroquel, the patient may need a different placement with a higher staffing ratio.. Vital Signs Vital signs: Initial Vital Signs Temperature 96.9 F L 07/05/23 07:31 Temperature Source Temporal Artery Scan 07/05/23 07:31 Pulse Rate 68 07/05/23 07:31 Respiratory Rate 18 07/05/23 07:31 Blood Pressure 175/102 H 07/05/23 07:31 Blood Pressure Mean 126 H 07/05/23 07:31 Blood Pressure Position Sitting 07/05/23 07:31 Pulse Oximetry 99 07/05/23 07:31 Oxygen Delivery Method Room Air 07/05/23 07:31 Vital Signs Temperature 96.9 F L 07/05/23 07:31 Pulse Rate 68 07/05/23 07:31 Respiratory Rate 18 07/05/23 07:31 Blood Pressure 175/102 H 07/05/23 07:31 Pulse Oximetry 99 07/05/23 07:31 Oxygen Delivery Method Room Air 07/05/23 07:31 Temperature 96.9 F L 07/05/23 07:31 Pulse Rate 68 07/05/23 07:31 Respiratory Rate 18 07/05/23 07:31 Blood Pressure 175/95 H 07/05/23 08:08 Pulse Oximetry 99 07/05/23 07:31 Oxygen Delivery Method Room Air 07/05/23 07:31 Medical Decision Making MDM Narrative Medical decision making narrative: 53-year-old gentleman is sent to the ER today from his usp. It sounds like he has a recent history of escalating anxiety, racing thoughts, and possible brisa. He also has a lot of anxieties. He apparently woke up this morning after a disturbing dreams (he does not specifically remember a ni ghtmare) with an uneasy feeling in told his usp staff that he was ?at that point? which his usp staff took to mean that he might be thinking about suicide. He did not have a plan and did not take any action to harm himself. Because of the potential for suicidal thoughts they sent him in. Now that he is here he definitely says he is not suicidal. He is mildly anxious but is overall cooperative and polite here in the ER. He was seen by DEC who feel that he is safe for outpatient management. I agree. We contacted his primary psychiatrist who advised that we should start him back on Seroquel at 50 mg twice daily. Of note he already has a p.r.n. for Seroquel. I clarified with his pharmacy that plan will be to put him on 50 b.i.d. with no additional p.r.n. for now. Will discharge back to his usp where he can be monitored in a safe environment. I revisited with the patient that if he does have worsening thoughts of anxiety, depression, or suicide he should notify his usp staff and return to the ER right away Lab Data Labs: Lab Results 07/05/23 Range/Units 08:53 WBC 5.18 (4.50-11.00) K/uL RBC 4.87 (4.30-5.90) m/uL Hgb 13.9 (13.5-17.5) gm/dL Hct 40.9 (37.0-53.0) % MCV 84 (80-100) fL MCH 29 (26-34) pg MCHC 34 (32-36) gm/dL RDW Coeff of Arlene 13.1 (11.5-15.5) % Plt Count 177 (140-440) K/uL Neut % (Auto) 49.2 (42.0-72.0) % Lymph % (Auto) 34.4 (20-44) % Pepin % (Auto) 13.7 H (0.0-11.0) % Eos % (Auto) 1.9 (0.0-7.0) % Baso % (Auto) 0.4 (0.0-3.0) % Neut # (Auto) 2.55 (1.7-7.0) K/uL Lymph # (Auto) 1.78 (0.90-2.90) K/uL Pepin # (Auto) 0.70 (0.00-0.90) K/UL Eos # (Auto) 0.10 (0.00-0.50) K/uL Baso # (Auto) 0.02 (0.00-0.30) K/uL Abs Immat Gran (auto) 0.02 (0.00-0.30) K/uL Imm/Tot Granulo (auto) 0.4 % Sodium 128 L (135-149) mmol/L Potassium 5.2 H (3.6-5.1) mmol/L Chloride 93 L (96-114) mmol/L Carbon Dioxide 29 (20-32) mmol/L Anion Gap 6 L (7-15) mEq/L BUN 18 (7-30) mg/dL Creatinine 0.9 (0.5-1.5) mg/dL Estimated Creat Clear 98.01 Estimated GFR 102 ml/min Glucose 125 H (60-115) mg/dL Calcium 9.7 (8.4-10.6) mg/dL Total Bilirubin 0.3 (0.1-1.5) mg/dL AST 32 (12-35) U/L ALT 14 (4-50) U/L Alkaline Phosphatase 67 (40-150) U/L Total Protein 7.8 (6.0-8.3) g/dL Albumin 4.2 (3.3-5.0) g/dL TSH 3.650 (0.270-4.200) uIU/mL Salicylates < 1.0 L (1.0-10) mg/dL Acetaminophen < 10.0 L (10.0-30.0) ug/mL Discharge Plan Discharge Clinical Impression: Suicidal thoughts, Anxiety Patient Disposition: Home, Self-Care Condition: Stable Instructions: Help Prevent Suicide in Older Adults (ED), Anxiety (ED), Suicide Prevention (ED) Additional Instructions: please come back to the ER right away if you have more thoughts of suicide or self-harm, or if you start to make a plan, or if you are feeling unsafe. Your psychiatrist once you to start back on Seroquel. Start back at a low dose of 50 mg twice daily. Keep your appointment to see your psychiatrist on July 12. Remember, come back to the ER any time if you are having trouble or if you need to be rechecked Prescriptions: New quetiapine [Seroquel] 50 mg tablet 50 mg PO BID Qty: 30 0RF No Action nicotine (polacrilex) 2 mg mini lozenge 2 mg buccal Q8H PRN Invega Sustenna 39 mg/0.25 mL syringe 234 mg IM Q3W alprazolam 0.5 mg tablet 0.5 mg PO BID aspirin [Ecotrin Low Strength] 81 mg tablet,delayed release (DR/EC) 81 mg PO DAILY buspirone 10 mg tablet 30 mg PO BID divalproex 500 mg tablet,delayed release (DR/EC) 1,000 mg PO BID famotidine 20 mg tablet 20 mg PO BID gabapentin 300 mg capsule 900 mg PO TID Jardiance 10 mg tablet 10 mg PO DAILY metformin 1,000 mg tablet 1,000 mg PO BID metoprolol succinate 50 mg tablet extended release 24 hr 50 mg PO DAILY multivitamin [Daily Multi-Vitamin] Tablet 1 tab PO DAILY insulin aspart U-100 [Novolog FlexPen U-100 Insulin] 100 unit/mL (3 mL) insulin pen 10 unit subcut .tid WITH MEALS quetiapine 200 mg tablet 50 mg PO BID PRN rosuvastatin 20 mg tablet 20 mg PO HS insulin degludec [Tresiba FlexTouch U-200] 200 unit/mL (3 mL) insulin pen 28 unit subcut QHS loperamide [Anti-Diarrheal (loperamide)] 2 mg capsule 2 mg PO Q6H PRN diphenhydramine HCl [Banophen] 25 mg capsule 25 mg PO Q6-8H PRN benzonatate 100 mg capsule 100 mg PO TID PRN calcium carbonate [Tums [place]] 200 mg calcium (500 mg) tablet,chewable 500 mg PO TID PRN polyethylene glycol 3350 [ClearLax] 17 gram/dose powder 17 g PO DAILY PRN guaifenesin [Adult Tussin Chest Congestion] 100 mg/5 mL liquid 100 mg PO Q6H PRN melatonin 5 mg tablet,disintegrating 5 mg PO PRN Rx Instructions: ER TABLET ondansetron HCl 4 mg tablet 4 mg PO Q8H PRN lisinopril 5 mg tablet 5 mg PO DAILY trihexyphenidyl 5 mg tablet 5 mg PO BID furosemide 20 mg tablet 20 mg PO DAILY Qty: 30 2RF Follow Up/Referrals: Zhane Stanley DO [Primary Care Provider] - Stand Alone Forms: MyHealth Info Instructions
[2023-07-05 08:08] VITALS: BP 175/95
[2023-07-05 09:01] LABS: Basophils Absolute Auto 0.02 K/uL (0.00-0.30); Basophils Percent Auto 0.4 % (0.0-3.0); Eosinophils Percent Auto 1.9 % (0.0-7.0); Hematocrit 40.9 % (37.0-53.0); Hemoglobin* 13.9 gm/dL (13.5-17.5); Immature Granulocytes Abs Auto 0.02 K/uL (0.00-0.30); Immature Granulocytes Pct Auto 0.4 %; Lymphocytes Absolute Auto 1.78 K/uL (0.90-2.90); Lymphocytes Percent Auto 34.4 % (20-44); Mean Corpuscular HGB Conc 34 gm/dL (32-36); Mean Corpuscular Hemoglobin 29 pg (26-34); Mean Corpuscular Volume 84 fL (80-100); Monocytes Percent Auto 13.7 % (0.0-11.0); Neutrophils Absolute Auto 2.55 K/uL (1.7-7.0); Neutrophils Percent Auto 49.2 % (42.0-72.0); Platelet Count* 177 K/uL (140-440); RDW Coefficient of Variation % 13.1 % (11.5-15.5); Red Blood Count 4.87 m/uL (4.30-5.90); White Blood Count* 5.18 K/uL (4.50-11.00)
[2023-07-05 09:02] LABS: Slide Review Reflex No
[2023-07-05 09:20] LABS: Albumin* 4.2 g/dL (3.3-5.0); Chloride* 93 mmol/L (96-114); Sodium* 128 mmol/L (135-149)
[2023-07-05 09:21] LABS: Potassium* 5.2 mmol/L (3.6-5.1)
[2023-07-05 09:23] LABS: Alanine Aminotransferase* 14 U/L (4-50); Alkaline Phosphatase* 67 U/L (40-150); Anion Gap 6 mEq/L (7-15); Aspartate Amino Transferase* 32 U/L (12-35); Bilirubin Total* 0.3 mg/dL (0.1-1.5); Blood Urea Nitrogen* 18 mg/dL (7-30); Calcium* 9.7 mg/dL (8.4-10.6); Carbon Dioxide* 29 mmol/L (20-32); Creatinine* 0.9 mg/dL (0.5-1.5); Est. Creatinine Clearance* 98.01; Estimated Glomerular Filt Rate 102 ml/min; Glucose* 125 mg/dL (60-115); Total Protein* 7.8 g/dL (6.0-8.3)
[2023-07-05 09:29] LABS: Acetaminophen* < 10.0 ug/mL (10.0-30.0); Salicylate* < 1.0 mg/dL (1.0-10)
== END 2023-07-05 13:05 | disposition home or self-care (01) ==
PROVIDERS: Emergency Provider Emergency Medicine; PCP Family Medicine
DX: R45.851 Suicidal ideations (principal); F41.9 Anxiety disorder, unspecified
CPT/HCPCS: 36415; 80053; 80143; 80179; 84443; 85025; 99283; 99284

== ENCOUNTER 2024-03-16 08:32 | Outpatient (CLI) | payer MEDICARE, MEDICAID, SELFPAY ==
--- OUTSIDE RECORDS SUMMARY | 2024-03-16 08:38 | XMS_ITS | Clinical Summary ---
Author Organization [facility] Address [place], [place] [address] Care Team Providers Care Scheduler Maintenance Name Role Phone Glenys Alcantar MD Unavailable [phone] [facility], [place] Unavailable [phone] Zhane Stanley DO Primary Care Provider [phone] Samantha Grayson PharmD Unavailable [phone] Allergies Active Allergy Reactions Criticality Noted Date Comments Aripiprazole 06/09/2008 Tardive dyskinsia Bupropion Nausea Only,Anxiety 04/29/2017 Haloperidol 02/13/2007 Tardive dyskinsia Clonazepam Other - Describe In Comment Field 08/11/2021 Neuroleptic shock Thiothixene 02/13/2007 Tardive dyskinsia Nitroglycerin Nausea And Vomiting Medium 04/09/2013 Trifluoperazine Tremors 03/15/2009 Confusion, heart palpitations Ziprasidone *Unknown 03/15/2009 Tardive dyskinsia Medications Medication Sig Dispensed Refills Start Date End Date Status milk of magnesia (MOM) 400 mg/5 mL suspension Take 15-30 mL by mouth once daily if needed. Active multivitamin (MVI) tablet Take 1 Tablet by mouth once daily. 0 12/05/19 21 Active ondansetron (ZOFRAN ODT) 4 mg disintegrating tabletIndications: Nausea Place 1 Tablet (4 mg) on the tongue every 8 hours if needed for Nausea/Vomiting. 30 Tablet 03/09/20 21 Active lancets (Accu-Chek Softclix Lancets)Indication s:Type 2 diabetes mellitus with diabetic polyneuropathy, with long-term current use of insulin (HC) USE TO TEST 3 TIMES DAILY 200 Each 3 09/01/19 23 Active simethicone chewable (MYLANTA GAS RELIEF; GAS X) 80 mg chewable tabletIndications: Flatulence Chew 1 Tablet (80 mg) by mouth 2 times daily if needed for Flatulence. Max dose: 500 mg per 24 hrs 180 Tablet 3 11/23/19 23 Active guaiFENesin 100 mg/5 mL liquidIndications: Acute cough Take 5 mL (100 mg) by mouth every 6 hours if needed for Expectoration. Every 4 Hours as needed for cough 118 mL 05/03/19 24 Active calcium carbonate (Calcium Antacid) 200 mg calcium (500 mg) chewable tabletIndications: Chronic GERD CHEW 2-4 TABLETS BY MOUTH BETWEEN MEALS & AT BEDTIME NEEDED (STANDING ORDER) 90 Tablet 3 06/21/19 24 Active rosuvastatin (CRESTOR) 20 mg tabletIndications: Hyperlipidemia, unspecified hyperlipidemia type Take 1 Tablet (20 mg) by mouth at bedtime. 90 Tablet 3 07/29/19 24 Active Insulin Safety [place], Disp, 30 gauge x ndications:Ty pe 2 diabetes mellitus with diabetic polyneuropathy, with long-term current use of insulin (HC) To use with insulin administration Dx E11.42 300 Each 3 09/29/19 24 Active famotidine (PEPCID) 20 mg tabletIndications: Chronic GERD Take 1 Tablet (20 mg) by mouth 2 times daily if needed for Heartburn or GI Upset. 180 Tablet 3 10/10/19 24 Active lisinopriL (PRINIVIL; ZESTRIL) 10 mg tabletIndications: Positive for macroalbuminuria,T ype 2 diabetes mellitus with nephropathy (HC) Take 1 Tablet (10 mg) by mouth once daily. 90 Tablet 3 10/11/19 24 Active Comp Stocking,Knee,Regu lar,Sml (T.E.D. Anti-Embolism Stocking) misc As directed. put on in the morning and take off at bedtime Active blood sugar diagnostic (True Metrix Glucose Test Strip) stripIndications:T ype 2 diabetes mellitus with diabetic polyneuropathy, with long-term current use of insulin (HC) TEST BLOOD GLUCOSE THREE TIMES DAILY 300 Each 3 11/09/19 24 Active aspirin (ECOTRIN) 81 mg enteric coated tabletIndications: HTN (hypertension) TAKE 1 TABLET BY MOUTH DAILY WITH A MEAL 90 Tablet 3 11/17/19 24 Active insulin degludec, U-200, (Tresiba FlexTouch U-200) 200 unit/mL (3 mL) penIndications:Typ e 2 diabetes mellitus with diabetic polyneuropathy, with long-term current use of insulin (HC) INJECT 28 UNITS SUBCUTANEOUSLY AT BEDTIME 27 mL 11/23/19 24 Active insulin lispro, U-100, (Admelog SoloStar U-100 Insulin) 100 unit/mL inpn penIndications:Typ e 2 diabetes mellitus with diabetic polyneuropathy, with long-term current use of insulin (HC) INJECT 10 UNITS SUBCUTANEOUSLY THREE TIMES DAILY WITH MEAL(S);INJECT 0-8 UNITS SUBCUTANEOUSLY THREE TIMES DAILY PER SLIDING SCALE 60 mL 11/23/19 24 Active Blood-Glucose Meter (True Metrix Glucose Meter) As directed. Active Blood Glucose Control, High (True Metrix Level 3) soln As directed. Active menthol ([place]lin Cough Drops) 3.2 mg lozg Dissolve 1 Lozenge in the mouth 2 times daily if needed. as needed for cough or sore throat Active dextromethorphan (John Paul-on Tussin Cough Max St) 15 mg/5 mL liquid Take by mouth. Take 5 - 10 ml every 4 - 6 hours a needed for cough or congestion Active ammonium lactate 12 % cream Apply topically to affected area(s). apply topically to affected area(s) twice daily. Active empagliflozin (Jardiance) 10 mg tabletIndications: Positive for macroalbuminuria,T ype 2 diabetes mellitus with diabetic polyneuropathy, with long-term current use of insulin (HC) TAKE 1 TABLET BY MOUTH DAILY 30 Tablet 02/09/20 24 Active nicotine 2 mg lozengeIndications :Tobacco use disorder PLACE 1 LOZENGE BY MOUTH , BETWEEN CHEEK & GUM EVERY 1 HOUR NEEDED WHILE AWAKE FOR CRAVINGS MAX OF 20 PER DAY 72 Lozenge 3 02/22/20 24 Active acetaminophen (TYLENOL) 325 mg tablet Take 325 mg by mouth every 4 hours if needed for Pain. Max acetaminophen dose: 4000mg in 24 hrs. Active loperamide (Anti-Diarrheal) 2 mg tablet each time if needed for Diarrhea. Take 2 tablets (4mg) orally with 1st loose stool, then 1 tablet (2mg) with other loose stools. Max 8 tablets (16 mg) in 24 hrs. Active benzonatate (TESSALON) 100 mg capsule Take 100 mg by mouth 3 times daily if needed for Cough. Active aluminum-magnesium hydroxide-simethic one (Antacid) 200-200-20 mg/5 mL suspension Take 5-10 mL by mouth 4 times daily if needed for GI Upset. Shake Well. As needed one time between meal and at bedtime Active mineral oil-hydrophil petrolat ointment Apply topically to affected area(s) two times daily. Active polyethylene glycoL (MIRALAX) 17 gram/scoop powderIndications: Chronic constipation Mix 1 scoop (17 g) in liquid then take by mouth once daily if needed for Constipation. 1530 g 3 03/09/20 24 Active metFORMIN (GLUCOPHAGE) 1,000 mg tabletIndications: Type 2 diabetes mellitus with diabetic polyneuropathy, with long-term current use of insulin (HC) Take 1 Tablet (1,000 mg) by mouth two times daily with meals. 180 Tablet 03/11/20 24 Active furosemide (LASIX) 20 mg tabletIndications: Bilateral lower extremity edema TAKE 1 TABLET BY MOUTH DAILY 90 Tablet 03/11/20 24 Active gabapentin (NEURONTIN) 300 mg capsuleIndications :Diabetic ulcer of toe of right foot associated with type 2 diabetes mellitus, limited to breakdown of skin (HC),Diabetic peripheral neuropathy (HC) TAKE 3 CAPSULES BY MOUTH THREE TIMES DAILY 810 Capsule 03/11/20 24 Active BD AutoShield Duo Pen Needle 30 gauge x 07/08 ndle 02/06/20 24 Active Fiasp FlexTouch U-100 Insulin 100 unit/mL (3 mL) pen 09/05/19 24 Active ALPRAZolam (XANAX) 0.25 mg tabletIndications: Panic disorder without agoraphobia,Genera lized anxiety disorder Take 2 tablets (0.5 mg) every morning AND 1 tablets (0.25 mg) every evening. Further refills will be prescribed during an appointment 90 Tablet 2 03/09/20 24 Active diphenhydrAMINE (Banophen) 25 mg capsule Take 1 Capsule (25 mg) by mouth every 6 hours if needed (sleep or allergies). Also helps with anxiety 03/09/20 Active propranolol ER (INDERAL LA) 60 mg Cs24 Sustained-Release capsuleIndications :Panic disorder without agoraphobia,Genera lized anxiety disorder,Medicatio n-induced postural tremor Take 1 Capsule (60 mg) by mouth once daily. Further refills will be prescribed during an appointment 28 Capsule 12 03/09/20 24 Active paliperidone palmitate (INVEGA SUSTENNA) 234 mg/1.5 mL intramuscular syringeIndications :Bipolar I disorder with mood-congruent psychotic features (HC) Inject 234 mg intramuscular every 3 weeks. 1.5 mL 16 03/09/20 24 Active QUEtiapine (SEROQUEL) 200 mg tabletIndications: Bipolar I disorder with mood-congruent psychotic features (HC) Take 1 Tablet (200 mg) by mouth every evening 28 Tablet 12 03/09/20 24 Active busPIRone (BUSPAR) 30 mg tabletIndications: Panic disorder without agoraphobia,Genera lized anxiety disorder Take 1 Tablet (30 mg) by mouth two times daily. 56 Tablet 12 03/09/20 24 Active trihexyphenidyL (ARTANE) 5 mg tabletIndications: Neuroleptic-induce d tardive dyskinesia Take 1 Tablet (5 mg) by mouth two times daily. 56 Tablet 12 03/09/20 24 Active divalproex (DEPAKOTE) 500 mg Delayed-Release tabletIndications: Bipolar I disorder with mood-congruent psychotic features (HC) Take 2 Tablets (1,000 mg) by mouth two times daily. 112 Tablet 12 03/09/20 24 Active loperamide (IMODIUM) 2 mg capsule As Needed 024 Discontinued(Ph armacist change per medication history (E-cancel not sent)) polyethylene glycoL (MIRALAX) 17 gram/scoop powderIndications: Chronic constipation Mix 1 scoop (17 g) in liquid then take by mouth once daily if needed for Constipation. 1530 g 3 05/24/19 23 024 Discontinued(Re order (E-cancel not sent)) melatonin 5 mg capsuleIndications :Insomnia, idiopathic Take 1 Capsule (5 mg) by mouth at bedtime. 90 Capsule 3 02/25/20 23 024 Discontinued(Ph armacist change per medication history (E-cancel not sent)) gabapentin (NEURONTIN) 300 mg capsuleIndications :Diabetic ulcer of toe of right foot associated with type 2 diabetes mellitus, limited to breakdown of skin (HC),Diabetic peripheral neuropathy (HC) TAKE 3 CAPSULES BY MOUTH THREE TIMES DAILY 810 Capsule 2 04/06/20 23 024 Discontinued insulin aspart, U-100, (NovoLOG Flexpen U-100 Insulin) 100 unit/mL (3 mL) penIndications:Typ e 2 diabetes mellitus with diabetic polyneuropathy, with long-term current use of insulin (HC) INJECT 10 UNITS SUBCUTANEOUSLY THREE TIMES DAILY WITH MEALS PLUS PER SLIDING SCALE. Sliding scale as follows: 150-199 (add 2 units), 200-249 (add 3 units), 250-299 (add 4 units), 300-349 (add 5 units), 350-399 (add 6 units), 400+ (add 8 units) 60 mL 05/08/19 24 024 Discontinued(Ph armacist change per medication history (E-cancel not sent)) paliperidone palmitate (INVEGA SUSTENNA) 234 mg/1.5 mL intramuscular syringeIndications :Bipolar I disorder with mood-congruent psychotic features (HC) Inject 234 mg intramuscular every 3 weeks. 1.5 mL 12 06/22/19 24 024 Discontinued(*M edication adjustment) QUEtiapine (SEROQUEL) 200 mg tabletIndications: Bipolar I disorder with mood-congruent psychotic features (HC) Take 1 Tablet (200 mg) by mouth every evening 90 Tablet 3 07/13/19 24 024 Discontinued(*M edication adjustment) metFORMIN (GLUCOPHAGE) 1,000 mg tabletIndications: Type 2 diabetes mellitus with diabetic polyneuropathy, with long-term current use of insulin (HC) Take 1 Tablet (1,000 mg) by mouth two times daily with meals. 180 Tablet 1 07/29/19 24 024 Discontinued furosemide (LASIX) 20 mg tabletIndications: Bilateral lower extremity edema Take 1 Tablet (20 mg) by mouth once daily. 90 Tablet 1 07/29/19 24 024 Discontinued busPIRone (BUSPAR) 30 mg tabletIndications: Generalized anxiety disorder,Panic disorder without agoraphobia Take 1 Tablet (30 mg) by mouth two times daily. 60 Tablet 11 08/15/19 24 Discontinued(*M edication adjustment) trihexyphenidyL (ARTANE) 5 mg tabletIndications: Neuroleptic-induce d tardive dyskinesia Take 1 Tablet (5 mg) by mouth two times daily. 56 Tablet 12 08/15/19 24 Discontinued(*M edication adjustment) divalproex (DEPAKOTE) 500 mg Delayed-Release tabletIndications: Bipolar I disorder with mood-congruent psychotic features (HC) Take 2 Tablets (1,000 mg) by mouth two times daily. 112 Tablet 12 08/15/19 Discontinued(*M edication adjustment) acetaminophen (TYLENOL) 325 mg suppository Insert 650 mg rectally every 4 hours. Max acetaminophen dose: 4000mg in 24 hrs. Discontinued(Ph armacist change per medication history (E-cancel not sent)) diphenhydrAMINE (Banophen) 25 mg capsule Take 25 mg by mouth every 6 hours if needed (sleep or allergies). Discontinued(*M edication adjustment) rx benzonatate (TESSALON) 100 mg capsule (ED DC MED) Take 100 mg by mouth 3 times daily if needed. Discontinued(Ph armacist change per medication history (E-cancel not sent)) hydrocortisone (Aquaphor Itch Relief) 1 % ointment Apply topically to affected area(s) two times daily. Discontinued(Ph armacist change per medication history (E-cancel not sent)) propranolol ER (INDERAL LA) 60 mg Cs24 Sustained-Release capsuleIndications :Panic disorder without agoraphobia,Genera lized anxiety disorder,Medicatio n-induced postural tremor Take 1 Capsule (60 mg) by mouth once daily. Further refills will be prescribed during an appointment 30 Capsule 2 02/03/20 Discontinued(*M edication adjustment) ALPRAZolam (XANAX) 0.25 mg tabletIndications: Panic disorder without agoraphobia,Genera lized anxiety disorder Take 2 tablets (0.5 mg) by mouth twice a day until 02/26/2024, THEN on 02/27/2024 take 2 tablets (0.5 mg) every morning AND 1 tablets (0.25 mg) every evening. May also take 1 tablet (0.25 mg) if needed for anxiety. Further refills will be prescribed during an appointment 120 Tablet 2 02/03/20 24 024 Discontinued(*M edication adjustment) nicotine 2 mg lozengeIndications :Tobacco use disorder PLACE 1 LOZENGE BY MOUTH , BETWEEN CHEEK & GUM EVERY 1 HOUR NEEDED WHILE AWAKE FOR CRAVINGS MAX OF 20 PER DAY 72 Lozenge 02/18/20 24 024 Discontinued(Re order (E-cancel not sent)) melatonin 5 mg tab tablet Take 5 mg by mouth at bedtime if needed for Sleep. 024 Discontinued(*M ed complete/Regime n complete/Level of care change) cephalexin 500 mg capsuleIndications :skin and skin structure infection Take 2 Capsules (1,000 mg) by mouth three times daily for 7 days. 42 Capsule 03/02/20 24 024 cephalexin 500 mg capsuleIndications :Cellulitis in diabetic foot (HC) Take 2 Capsules (1,000 mg) by mouth two times daily for 5 days. 20 Capsule 03/08/20 24 024 Active Problems Problem Noted Date Diagnosed Date Iliac artery stenosis, right 03/09/2024 Diabetic foot ulcer associat ed with type 2 diabetes mellitus 03/01/2024 Cellulitis in diabetic foot 03/01/2024 Chronic kidney disease, stage 2 (mild) 4 Overview (03/01/2024): Baseline creatinine approximately 1-1.2 range for several years. Longstanding, documented albuminuria, first identified November 2010 at 39 mg/g (from 2899-7955, values arranged between 80-150 mg/g). Recent values from August 2019 at 542 mg/g and 1281 mg/g in April 2022. Urine albumin creatinine ratio from September 2023 at 1527 mg/g. 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 Hyperinflation of lungs, normal spirometry 06/26 Fx phalanx, foot-closed 06/13/2023 Suicide attempt by inadequate means 06/13/2023 Transient hypotension 06/13/2023 Medication-induced postural, intention, task-specific, isometric tremors of both upper extremities 06/13/2023 Hypertensive heart disease with heart failure Panic disorder without agoraphobia 07/05/2022 Trauma and stressor-related disorder 07/05/2022 Neuroleptic-induced tardive dyskinesia Bipolar I disorder with mood-congruent psychotic features 06/11/2022 Controlled substance agreement signed 05/05/2022 Overview (05/05/2022): 05/05/2022 - Johan Ye MD Psychiatry Generalized [...] 09/23/2017 Status post angioplasty with stent 09/16/2011 Overview (04/15/2022): History of PTCA 04/2011 BMS RCA Obesity, unspecified 08/08/2011 Seizure disorder 08/07/2011 CAD (coronary artery disease) 07/04/2011 Hyperlipidemia with target LDL less than 70 05/26 Overview (04/15/2022): Hyperlipidemia LDL goal < 70 HTN (hypertension) 05/13/2011 Tobacco use disorder, modera te, in early remission since 06/202204/29/2011 Erectile dysfunction 01/22/2011 Overview (04/15/2022): side effect Risperdal Hypertriglyceridemia 11/27/2010 Dyslipidemia 11/29/2009 [...] 11/26/2010 05/07/2016 Diabetes mellitus type II 12/21/2009 Overview (07/10/2013): Uncontrolled with last a1c of 10.1 in 11/2009 a system change updated this record. This will not affect patient care or billing. This comment can be deleted. Chest wall pain - noncardiac 11/07/2009 11/06/2011 Overview (07/25/2011): With chest wall tenderness - reproduced on [...] Encounters Date Type Department Care Team Description 03/15/2024 Telephone [facility] [address] [place] [address] Jorge A Morgan MD Referral 03/12/2024 Orders Only [facility] [address] [place], [place] [id number] Gagandeep Manuel NP <No scans attached> 03/09/2024 11:00 AM CREDIT COLLECTIONS REP Office Visit [facility] [address] [place] [address] Zhane Stanley, DO Derm Problem (Cellulitis follow up ) 03/09/2024 9:30 AM CREDIT COLLECTIONS REP Office Visit [facility] [address] [place] [address] Johan Ye MD Medication Management (medications reviewed yesterday 03/08/24 at appointment) 03/08/2024 10:50 AM CREDIT COLLECTIONS REP Office Visit [facility] [address] [place] [address] Hardeep Reardon MD Foot Pain/problem (Cellulitis on both feet) 03/08/2024 Travel 03/07/2024 Refill [facility] [address] [place] [address] Nelsonqra Zhane Анна, DO Refill Request (Metformin, Furosemide, Gabapentin, gavilax) 03/05/2024 Refill [facility] [address] [place] [address] Jaden Zhaen Анна, DO Refill Request (GAVILAX) 03/05/2024 Patient Outreach [facility] [address] [place] [address] Jacqueline Oliver RN Primary RN Care Management; Hospital F/U (LACE 23/) 03/01/2024 1:04 PM CREDIT COLLECTIONS REP - 03/03/2024 11:[address] [facility] Hospital Encounter [address] [place] [address] Marco Antonio Goodwin, Cellulitis in diabetic foot (HC) (Primary Dx) Discharge Disposition: Home Self Care 03/01/2024 7:00 AM CREDIT COLLECTIONS REP Office Visit [facility] [address] [place] [address] Anabel Sanchez MD Foot Problem (Sores on the bottom of feet. Look like small bruises. Maybe a pressure point issue. About 1-2 weeks/Podiatrists looked at it Tuesday and thought maybe it was shoes. Tender and sore to the touch. When he wakes up it is like stabbing knife into the feet.); Derm Problem (Blister on the back of the neck. Not healing well, because of shirt rubbing on it. X1 week.) 03/01/2024 Travel 02/27/2024 Nurse Triage [facility] [address] [place] [address] Shaqra Zhane Анна, DO Foot Pain/problem (L heel ) 02/15/2024 Refill [facility] [address] [place] [address] Shaqra, Zhane Анна, DO NICOTINE JANNA 02/13/2024 1:00 PM CDT Office Visit [facility] [address] [place] [address] Hardeep Reardon MD Diarrhea (Having liquid bowel movements while sleeping x4. Unaware of needing to use the restroom. ) 02/13/2024 Telephone [facility] [address] [place] [address] Ky Love MD Chart Review 02/13/2024 Travel 02/07/2024 Refill [facility] [address] [place] [address] Jaden Zhane Анна, DO Refill Request (Jardiance) 02/03/2024 9:30 AM CDT Office Visit [address] [address] Johan Ye MD Follow Up; Medication Management (Discuss medications) 02/03/[address] [address] Johan Ye MD Refill Request; PROPRANOLOL 02/03/2024 Travel 01/16/2024 Refill [facility] [address] [place] [address] Nelsonqra Zhane Анна, DO Refill Request (Nicotine ) 01/09/2024 Telephone [facility] [address] [place] [address] Johan Ye MD Results 01/06/2024 3:30 PM CDT Orders [place] [address] [place] [id number] Lab, Sup[facility] 01/06/2024 9:00 AM CDT Office Visit [facility] [address] [place] [address] Johan Ye MD Follow Up; Medication Management (feeling, overall emotionally, just great. I was looking foreword to seeing the doctor. Is cold and shaky.) 01/06/2024 Travel from Last 3 Months Immunizations Name Administration Dates Next Due COVID-19 vaccine (Pfizer-Bio NTech 30mcg/0.3mL) 12YO+ KATHERINE-SUCROSE PF, MDV 10/01/2021 COVID-19 vaccine (Pfizer-Bio NTech 30mcg/0.3mL) PF, MDV 09/16/2020,08/26/2020 Hepatitis B (Adult) 03/02/2023,08/18/2020,2018 INFLUENZA, IIV3 PF (AGE >= 6 MO) 01/31/2024 Influenza RIV4 (Age 18+ Year s) PRESERV FREE 03/02/2021 Influenza Virus, Unspecified 08/23/2014, 03/14/2013,02/01/2012,2010,03/17/2009,03/17/2009,02/27/2007,1 04/29/2006,03/23/2006,03/23/2006, 006,05/19/2005,03/12/2002 Influenza, IIV3 (Age 6-35 mos) 02/01/2012,2010 Influenza, IIV3 (Age >=3 years) 02/01/2012,01/26 Influenza, IIV4 02/07/2023,,01/07/2020,2017,02/16/2017,02/24/2016,03/27/2015,0 01/16/2014 Influenza, IIV4 (Age 6-35 Mos) 03/14/2013 Pneumococcal Conj 20-valent (Prevnar 20) 03/02/2023 Pneumococcal Poly,23-Valent (Pneumovax) 10/08/2009 Td (Age >=7 Years) 11/12/1998 Tdap 11/04/2015,09/15/2005 Tuberculin Skin Test, Unspecified 06/11/2019,,01/26/2016 Zoster (Shingrix-RZV, recombinant) 06/06/2023, Family History Medical History Relation Name Comments Alcoholism Father Diabetes Father Heart Disease Father Heart attack [...] 02/15/2022 Smokeless Tobacco: Never Tobacco Cessation:Counseling Given: Yes Alcohol Use Standard Drinks/Week Comments No 0 (1 standard drink = 0.6 oz pure alcohol) Has not had a drink since the as did not want interactions with medication PHQ-2 Answer Date Recorded PHQ-2 TOTAL SCORE 0 03/09/2024 Social Connections Answer Date Recorded Do you often feel lonely or isolated from those around you? 0 03/01/2024 Alcohol Use Answer Date Recorded How often do you have a drink containing alcohol ? 0 06/11/2022 Average Number of Drinks Not on file 023 How often do you have five or more drinks on one occasion? 0 06/11/2022 Financial Resource Strain Answer Date R ecorded Difficulty of Paying Living Expenses 3 10/10/2023 Difficulty of Paying Living Expenses Not on file 10/10/2023 Food Insecurity Answer Date Recorded Do you worry your food will run out before you are able to buy more? 1 03/01/2024 Transportation Needs Answer Date Record ed Does lack of transportation keep you from medica l appointments? 1 03/01/2024 Does lack of transportation keep you from work, meetings or getting things that you need? 1 03/01/2024 Housing Stability Answer Date Recorded What is your housing situation today? 1 03/01/2024 Education Answer Date Recorded What is the highest level of school you have completed or the highest degree you have received? High school graduate 04/15/2022 Sex and Gender Information Value Date Recorded Sex Assigned at Not on file Gender Identity Not on file Sexual Orientation Not on file Obstetrics History Last Filed Vital Signs Vital Sign Reading Time Taken Comments Blood Pressure 106/67 03/09/2024 10:53 AM CREDIT COLLECTIONS REP Pulse 68 03/09/2024 10:53 AM CREDIT COLLECTIONS REP Temperature 37.2 C (99 F) 03/03/2024 7:48 AM CREDIT COLLECTIONS REP Respiratory Rate 20 03/03/2024 7:48 AM CREDIT COLLECTIONS REP Oxygen Saturation 99% 03/09/2024 10: 53 AM CREDIT COLLECTIONS REP Inhaled Oxygen Concentration - - Weight 93.4 kg (205 lb 12.8 oz) 024 10:53 AM CREDIT COLLECTIONS REP Height 177.8 cm (5' 10) 11/14/2023 9:23 AM CDT Body Mass Index 29.53 11/14/2023 9:23 AM CDT Plan of Treatment Upcoming Encounters Date Type Department Care Team (Late st Contact Info) Description 03/19/2024 9:00 AM CREDIT COLLECTIONS REP Ancillary Procedure [facility] [address] [place] [address] 03/27/2024 1:00 PM CREDIT COLLECTIONS REP Office Visit [facility] [address] [place] [address] Johan Ye MD [address] [place] [address] 05/01/2024 10:30 AM CREDIT COLLECTIONS REP Office Visit [facility] [address] [phone] iZ Chen DPM [address] [place] [address] 05/14/2024 11:00 AM CREDIT COLLECTIONS REP Office Visit [facility] [address] [place] [address] Johan Ye MD [address] [place] [address] 06/05/2024 12:30 PM CREDIT COLLECTIONS REP Office Visit [facility] [address] [place] [address] Johan Ye MD [address] [place] [address] Health Maintenance Due Date Last Done Comments Low Dose CT (for lung CA) ag e 50-80 02/15/2024 02/14/2023, 12/21/2021, 05/07/2016 BMI (ht and wt on same day) for age 18+ 11/13/2024 11/14/2023, 09/12/2023, 11/22/2022, Additional history exists Depression screening for age 12+ 03/12/2025 03/12/2024, 03/09/2024, 03/09/2024, Additional history exists Fecal testing sDNA-FIT ([place] guard) for age 45-75 09/07/2025 09/07/2022 Tetanus booster 11/03/2025 11/04/2015, 08/24, 11/12/1998 Lipids for age 45-75 11/13/2028 11/14/2023, 07/02/2022, 05/25/2022, Additional history exists Tdap Completed 11/04/2015, 09/15/2005 HIV for age 15-65 Completed 06/25/2020 Hepatitis C screening for ag e 18-79 Completed 06/25/2020 Hepatitis B series for Diabetes Completed 03/02/2023, 08/18/2020, 12/18/2018 Pneumococcal series for age 6-64 Completed 03/02/20, 10/08/2009 Zoster (shingles) series for age 50+ Completed 06/06/2023, 03/07/2023 COVID-19 vaccine series Completed 01/31/20, 08/04/2023, 02/07/2023, Additional history exists Influenza for age 50-64 Completed 01/31/20, 02/07/2023, 02/02/2022, Additional history exists Procedures Procedure Name Priority Date/Time Associated Diagnosis Comments IRON PLUS IRON BINDING CAP Routine 03/08/2024 12:02 PM CREDIT COLLECTIONS REP Anemia of unknown etiology HEMOGLOBIN Routine 03/08/2024 12:02 PM CREDIT COLLECTIONS REP Anemia of unknown etiology BASIC METABOLIC PANEL Routine 03/08/2024 12:02 PM CREDIT COLLECTIONS REP Hyperkalemia GLUCOSE METER Routine 03/03/2024 11:03 AM CREDIT COLLECTIONS REP GLUCOSE METER Routine 03/03/2024 7:48 AM CREDIT COLLECTIONS REP C-REACTIVE PROTEIN Early AM 03/03/2024 6: 34 AM CREDIT COLLECTIONS REP SODIUM Early AM 03/03/2024 6:34 AM CREDIT COLLECTIONS REP HEMOGLOBIN Early AM 03/03/2024 6:34 AM CREDIT COLLECTIONS REP CREATININE Early AM 03/03/2024 6:34 AM CREDIT COLLECTIONS REP POTASSIUM Early AM 03/03/2024 6:34 AM CREDIT COLLECTIONS REP MAGNESIUM Early AM 03/03/2024 6:34 AM CREDIT COLLECTIONS REP GLUCOSE METER Routine 03/02/2024 8:55 PM CREDIT COLLECTIONS REP GLUCOSE METER Routine 03/02/2024 6:33 PM CREDIT COLLECTIONS REP GLUCOSE METER Routine 03/02/2024 11:37 AM CREDIT COLLECTIONS REP GLUCOSE METER Routine 03/02/2024 8:59 [address] ANGIO LOWER EXTREMITY BILAT RUNOFF Early AM 03/02/2024 8:29 AM CREDIT COLLECTIONS REP C-REACTIVE PROTEIN COLLETTE 03/02/2024 5: 49 AM CREDIT COLLECTIONS REP HEMOGLOBIN Early AM 03/02/2024 5:49 AM CREDIT COLLECTIONS REP WHITE BLOOD COUNT Early AM 03/02/2024 5:4 9 AM CREDIT COLLECTIONS REP MAGNESIUM Early AM 03/02/2024 5:49 AM CREDIT COLLECTIONS REP CREATININE Early AM 03/02/2024 5:49 AM CREDIT COLLECTIONS REP POTASSIUM Early AM 03/02/2024 5:49 AM CREDIT COLLECTIONS REP SODIUM Early AM 03/02/2024 5:49 AM CREDIT COLLECTIONS REP GLUCOSE METER Routine 03/01/2024 9:17 PM CREDIT COLLECTIONS REP GLUCOSE METER Routine 03/01/2024 6:00 PM CREDIT COLLECTIONS REP EKG 12 LEAD COLLETTE 03/01/2024 3:32 PM CREDIT COLLECTIONS REP MRSA/SA PCR Today 03/01/2024 2:52 PM CREDIT COLLECTIONS REP MAGNESIUM COLLETTE 03/01/2024 2:11 PM CREDIT COLLECTIONS REP CBC WITH AUTO DIFFERENTIAL COLLETTE 03/01/2024 2:11 PM CREDIT COLLECTIONS REP LACTATE VENOUS COLLETTE 03/01/2024 2:11 PM CREDIT COLLECTIONS REP PROCALCITONIN COLLETTE 03/01/2024 2:11 PM CREDIT COLLECTIONS REP SEDIMENTATION RATE COLLETTE 03/01/2024 2: 11 PM CREDIT COLLECTIONS REP C-REACTIVE PROTEIN COLLETTE 03/01/2024 2: 11 PM CREDIT COLLECTIONS REP COMP METABOLIC PANEL COLLETTE 03/01/2024 2:11 PM CREDIT COLLECTIONS REP CBC WITH AUTO DIFFERENTIAL COLLETTE 03/01/2024 2:11 PM CREDIT COLLECTIONS REP XR FOOT 3 VIEWS LEFT STAT 03/01/2024 2:03 PM CREDIT COLLECTIONS REP XR FOOT 3 VIEWS RIGHT STAT 03/01/2024 2:01 PM CREDIT COLLECTIONS REP BASIC METABOLIC PANEL Routine 01/06/2024 3:44 PM CDT Hyposmolality syndrome TSH WITH REFLEX Routine 01/06/2024 9:51 AM CDT Bipolar I disorder with mood-congruent psychotic features (HC) Panic disorder without agoraphobia LIPID PANEL W REFLEX MEASURED LDL Routine 11/14/2023 9:06 AM CDT Hyperlipidemia with target LDL less than 70 CT CHEST SCREENING LOW DOSE WO CONTRAST Routine 02/14/2023 1:23 PM CDT Encounter for screening for lung cancer Former smoker SDNA-FIT EXTERNAL (COLOGUARD) Routine 09/07/2022 10:30 AM CDT Screening for colon cancer ANTI HIV 1/2 COLLETTE 06/25/2020 7:57 AM CREDIT COLLECTIONS REP ANTI HCV COLLETTE 06/25/2020 7:57 AM CREDIT COLLECTIONS REP from Last 3 Months or Most Recently Relevant to Health Maintenance Results * IRON PLUS IRON BINDING CAP (03/08/2024 12:02 PM CREDIT COLLECTIONS REP) IRON, TOTAL 75 50 - 180 mcg/dL [facility] IRON BINDING CAPACITY 271 250 - 425 mcg/dL (calc) [facility] % SATURATION 28 20 - 48 % (calc) [facility] Blood BLOOD SPECIMEN / Unknown 03/08/2024 12:02 PM CREDIT COLLECTIONS REP 03/08/2024 12:02 PM CREDIT COLLECTIONS REP Hardeep Reardon MD PHLEBOTOMY MANAGER RY [employer] [facility] [address] [place] [address], [facility] [address] [place] [address] * (ABNORMAL) HEMOGLOBIN (03/08/2024 12:02 PM CREDIT COLLECTIONS REP) Only the most recent of3 resultswithin the time period is included. HEMOGLOBIN 12.2(L) 13.2 - 17.1 g/dL [facility] Blood BLOOD SPECIMEN / Unknown 03/08/2024 12:02 PM CREDIT COLLECTIONS REP 03/08/2024 12:02 PM CREDIT COLLECTIONS REP Hardeep Reardon MD HEMATOL OGY [employer] [facility] [address] [place] [address], [facility] [address] [place] [address] * (ABNORMAL) BASIC METABOLIC PANEL (03/08/2024 12:02 PM CREDIT COLLECTIONS REP) Only the most recent of2 resultswithin the time period is included. GLUCOSE 148(H) 65 - 99 mg/dL [facility] Comment: Fasting reference interval For someone without known diabetes, a glucose value >125 mg/dL indicates that they may have diabetes and this should be confirmed with a follow-up test. UREA NITROGEN (BUN) 23 7 - 25 mg/dL [facility] CREATININE 1.15 0.70 - 1.30 mg/dL [facility] EGFR 76 > OR = 60 mL/min/1. 73m2 [facility] BUN/CREATININE RATIO SEE NOTE: 6 - 22 (calc) [facility] Comment: Not Reported: BUN and Creatinine are within reference range. SODIUM 127(L) 135 - 146 mmol/L [facility] POTASSIUM 5.2 3.5 - 5.3 mmol/L [facility] CHLORIDE 92(L) 98 - 110 mmol/L [facility] CARBON DIOXIDE 29 20 - 32 mmol/L [facility] ELECTROLYTE BALANCE 6(L) 7 - 17 mmol/L (calc) [facility] CALCIUM 8.9 8.6 - 10.3 mg/dL [facility] Blood BLOOD SPECIMEN / Unknown 03/08/2024 12:02 PM CREDIT COLLECTIONS REP 03/08/2024 12:02 PM CREDIT COLLECTIONS REP Hardeep Reardon MD PHLEBOTOMY MANAGER RY [employer] [facility] [address] [place] [address], [facility] [address] [place] [address] * (ABNORMAL) GLUCOSE METER (03/03/2024 11:03 AM CREDIT COLLECTIONS REP) Only the most recent of8 resultswithin the time period is included. GLUCOSE METER 251(H) 65 - 100 mg/dL 03/03/2024 11:08 AM CREDIT COLLECTIONS REP [facility] Blood BLOOD SPECIMEN / Unknown 03/03/2024 11:03 AM CREDIT COLLECTIONS REP 03/03/2024 11:08 AM CREDIT COLLECTIONS REP Marco Antoniobelén [facility] CHEMISTRY Performing Organization Address [facility]/ZIP Co de Phone Number [facility] [address] [place] [address] * (ABNORMAL) SODIUM (03/03/2024 6:34 AM CREDIT COLLECTIONS REP) Only the most recent of2 resultswithin the time period is included. SODIUM 134(L) 136 - 145 mmol/L 03/03/2024 7:32 AM [facility] Blood BLOOD SPECIMEN / Unknown Venipuncture / Unknown 03/03/2024 6:34 AM CREDIT COLLECTIONS REP 03/03/2024 6:52 AM CREDIT COLLECTIONS REP Marco Antoniobelén Briggsm[facility] CHEMISTRY Performing Organization Address [facility]/ZIP Co de Phone Number [facility] [address] [place] [address] * (ABNORMAL) POTASSIUM (03/03/2024 6:34 AM CREDIT COLLECTIONS REP) Only the most recent of2 resultswithin the time period is included. POTASSIUM 5.2(H) 3.5 - 5.1 mmol/L 03/03/2024 7:32 AM CREDIT COLLECTIONS REP [facility] Blood BLOOD SPECIMEN / Unknown Venipuncture / Unknown 03/03/2024 6:34 AM CREDIT COLLECTIONS REP 03/03/2024 6:52 AM CREDIT COLLECTIONS REP Freya Roberts RN CHEMISTRY [facility] [address] [place] [address] * (ABNORMAL) CREATININE (03/03/2024 6:34 AM CREDIT COLLECTIONS REP) Only the most recent of2 resultswithin the time period is included. eGFR 79(L) >90 mL/min/1.7 3m2 03/03/2024 7:32 AM CREDIT COLLECTIONS REP [facility] Comment:As of 2021, eG FR is calculated by the CKD-EPI creatinine equation without race adjustment. eGFR can be influenced by muscle mass, exercise, and diet. The reported eGFR is an estimation only and is only applicable if the renal function is stable. CREATININE 1.11 0.70 - 1.20 mg/dL 03/03/2024 7:32 AM CREDIT COLLECTIONS REP [facility] Blood BLOOD SPECIMEN / Unknown Venipuncture / Unknown 03/03/2024 6:34 AM CREDIT COLLECTIONS REP 03/03/2024 6:52 AM CREDIT COLLECTIONS REP Marco Antonio Goodwin DO CHEMISTRY Performing Organization Address [facility] Co de Phone Number [facility] [address] [place] [address] * (ABNORMAL) C-REACTIVE PROTEIN (03/03/2024 6:34 AM CREDIT COLLECTIONS REP) Only the most recent of3 resultswithin the time period is included. C-REACTIVE PROTEIN 4.6(H) <0.5 mg/dL 03/03/2024 7:32 AM CREDIT COLLECTIONS REP [facility] Blood BLOOD SPECIMEN / Unknown Venipuncture / Unknown 03/03/2024 6:34 AM CREDIT COLLECTIONS REP 03/03/2024 6:52 AM CREDIT COLLECTIONS REP Marco Antonio Goodwin DO CHEMISTRY Performing Organization Address [facility] Co de Phone Number [facility] [address] [place] [address] * MAGNESIUM (03/03/2024 6:34 AM CREDIT COLLECTIONS REP) Only the most recent of3 resultswithin the time period is included. MAGNESIUM 2.4 1.6 - 2.6 mg/dL 03/03/2024 7:32 AM CREDIT COLLECTIONS REP [facility] Blood BLOOD SPECIMEN / Unknown Venipuncture / Unknown 03/03/2024 6:34 AM CREDIT COLLECTIONS REP 03/03/2024 6:52 AM CREDIT COLLECTIONS REP Freya Roberts RN CHEMISTRY Performing Organization Address [facility] Co de Phone Number [facility] [address] [place] [address] * CT ANGIO LOWER EXTREMITY BILAT RUNOFF (03/02/2024 8:29 AM CREDIT COLLECTIONS REP) Anatomical Region Laterality Modality LEGS Computed Tomogra phy 03/02/2024 10:0 6 AM CREDIT COLLECTIONS REP Narrative 03/02/2024 10:06 AM CREDIT COLLECTIONS REP For Patients: As a result of the Century Cures Act, medical imaging exams and procedure reports are released immediately into your electronic medical record. You may view this report before your referring provider. If you have questions, please contact your health care provider. Indication: Peripheral arterial disease. Technique: Multiple axial CT images from the mid abdomen through the bilateral ankles following administration of 150 mL of Omnipaque 350 IV contrast per CTA protocol. Sagittal, coronal and maximum intensity projection reformatted images were submitted for review. Please note that all CT scans at this facility use dose modulation, iterative reconstruction, and/or weight-based dosing when appropriate to reduce radiation dose to as low as reasonably achievable. Comparison: CT abdomen and pelvis 06/26/2018. Findings: Visualized abdomen: The visualized lower half of the kidneys are unremarkable. The solid abdominal organs are otherwise excluded from the field of view. Pelvis: Prostate and bladder as imaged are unremarkable. Fecal loading of the distal colon. GI tract as imaged is otherwise unremarkable. No pathologic lymphadenopathy or free fluid. Vascular: Atherosclerotic disease. Visualized aorta shows no evidence of aneurysm or dissection. The celiac, superior mesenteric and renal arteries are excluded from the field of view. Inferior mesenteric artery is patent. Right lower extremity: Common/external iliac arteries: Densely calcified atherosclerotic disease in the proximal common iliac artery causing stenosis in the 60 percent range. Right common iliac artery measures 9 mm. External iliac artery is patent. Common femoral artery: Mild atherosclerotic disease, without significant stenosis. Femoral-popliteal axis: Atherosclerotic disease with mild multifocal stenosis in the superficial femoral artery. Focal qryj-xv-trhchbxi stenosis in the distal popliteal artery. Tibioperoneal arteries: Patent, with three-vessel runoff to the ankle. Left lower extremity: Common/external iliac arteries: Left common iliac artery measures 9 mm. Radw-dh-qohbjxhu mixed atherosclerotic disease in the common iliac artery, without evidence of high-grade stenosis. External iliac artery is patent. Common femoral artery: Patent, without evidence of significant stenosis. Femoral-popliteal axis: Mild atherosclerotic disease. No significant stenosis. Tibioperoneal arteries: Patent, with three-vessel runoff to the ankle. Bone windows show no acute or suspicious osseous abnormality. Degenerative changes of the spine and pelvis. Impression: 1. Right lower extremity: Proximal common iliac artery stenosis in the 60 percent range. Mild multifocal stenosis in the superficial femoral artery. Trifurcation vessels are patent, with three-vessel runoff to the ankle. 2. Left lower extremity: No significant stenosis. Trifurcation vessels are patent, with three-vessel runoff to the ankle. Dictated by Yamil Shah MD @ 03/02/2024 10:06:37 AM Please note that all CT scans at this facility use dose modulation, iterative reconstruction, and/or weight-based dosing when appropriate to reduce radiation dose to as low as reasonably achievable. Dictated by: Yamil Shah MD @ 03/02/2024 10:06:59 (Electronically Signed) Procedure Note Yamil Shah DO - 03/02/2024 For Patients: As a result of the Century Cures Act, medical imagingexams and procedure reports are released immediately into your electronicmedical record. You may view this report before your referring provider.If you have questions, please contact your health care provider. Indication: Peripheral arterial disease. Technique: Multiple axial CT images from the mid abdomen through the bilateral anklesfollowing administration of 150 mL of Omnipaque 350 IV contrast per CTAprotocol. Sagittal, coronal and maximum intensity projection reformattedimages were submitted for review. Please note that all CT scans at this facility use dose modulation,iterative reconstruction, and/or weight-based dosing when appropriate toreduce radiation dose to as low as reasonably achievable. Comparison: CT abdomen and pelvis 06/26/2018. Findings: Visualized abdomen: The visualized lower half of the kidneys are unremarkable. The solidabdominal organs are otherwise excluded from the field of view. Pelvis: Prostate and bladder as imaged are unremarkable. Fecal loading of thedistal colon. GI tract as imaged is otherwise unremarkable. No pathologiclymphadenopathy or free fluid. Vascular: Atherosclerotic disease. Visualized aorta shows no evidence of aneurysm ordissection. The celiac, superior mesenteric and renal arteries areexcluded from the field of view. Inferior mesenteric artery is patent. Right lower extremity: Common/external iliac arteries: Densely calcified atherosclerotic diseasein the proximal common iliac artery causing stenosis in the 60 percentrange. Right common iliac artery measures 9 mm. External iliac artery ispatent. Common femoral artery: Mild atherosclerotic disease, without significantstenosis. Femoral-popliteal axis: Atherosclerotic disease with mild multifocalstenosis in the superficial femoral artery. Focal vzke-zz-nnzjznxydpftwrao in the distal popliteal artery. Tibioperoneal arteries: Patent, with three-vessel runoff to the ankle. Left lower extremity: Common/external iliac arteries: Left common iliac artery measures 9 mm.Wclo-wo-rbpulazz mixed atherosclerotic disease in the common iliac artery,without evidence of high-grade stenosis. External iliac artery ispatent. Common femoral artery: Patent, without evidence of significant stenosis. Femoral-popliteal axis: Mild atherosclerotic disease. No significantstenosis. Tibioperoneal arteries: Patent, with three-vessel runoff to the ankle. Bone windows show no acute or suspicious osseous abnormality. Degenerativechanges of the spine and pelvis. Impression: 1. Right lower extremity: Proximal common iliac artery stenosis in the 60percent range. Mild multifocal stenosis in the superficial femoral artery.Trifurcation vessels are patent, with three-vessel runoff to the ankle. 2. Left lower extremity: No significant stenosis. Trifurcation vessels arepatent, with three-vessel runoff to the ankle. Dictated by Yamil Shah MD @ 03/02/2024 10:06:37 AM Please note that all CT scans at this facility use dose modulation,iterative reconstruction, and/or weight-based dosing when appropriate toreduce radiation dose to as low as reasonably achievable. Dictated by: Yamil Shah MD @ 03/02/2024 10:06:59 (Electronically Signed) Marco Antonio Goodwin DO CT * WHITE BLOOD COUNT (03/02/2024 5:49 AM CREDIT COLLECTIONS REP) [facility] WHITE BLOOD COUNT 6.1 4.5 - 11.0 thou/cu mm 03/02/2024 6:38 AM CREDIT COLLECTIONS REP [facility] Blood BLOOD SPECIMEN / Unknown Venipuncture / Unknown 03/02/2024 5:49 AM CREDIT COLLECTIONS REP 03/02/2024 6:34 AM CREDIT COLLECTIONS REP Marco Antonio Goodwin DO HEMATOLOGY Performing Organization Address City/[facility]/ZIP Co de Phone Number [facility] [address] [place] [address] * 12 Lead EKG (03/01/2024 3:32 PM CREDIT COLLECTIONS REP) [facility] Interpretation Normal sinus rhythm Minimal voltage criteria for LVH, may be normal variant Borderline ECG When compared with ECG of 18-Jun-2020 16:34, No significant change was found [facility] NOW Ventricular Rate 78 BPM [facility] NOW Atrial Rate 78 BPM [facility]YOND NOW P-R Interval 154 ms BEYOND NOW QRS Duration 96 ms BEYOND NOW QT 376 ms [facility] NOW QTc 428 ms BEYOND NOW P [place] 37 degrees BEYOND NOW R [place] 15 degrees BEYOND NOW T [place] 33 degrees BEYOND NOW 03/01/2024 3:32 PM CREDIT COLLECTIONS REP 03/01/2024 6:37 PM CREDIT COLLECTIONS REP Marco Antonio Goodwin DO EKG ORD Performing Organization Address City/[facility]/ZIP Co de Phone Number [facility] [place], [place] * MRSA/SA PCR (03/01/2024 2:52 PM CREDIT COLLECTIONS REP) [facility] MRSA DNA PCR Negative Negative 03/01/2024 11:27 PM CREDIT COLLECTIONS REP [facility] STAPHYLOCOCCUS AUREUS PCR Negative Negative 03/01/2024 11:27 PM CREDIT COLLECTIONS REP [facility] Other SPECIMEN FROM INTERNAL NOSE / Unknown Non-Blood / Unknown 03/01/2024 2:52 PM CREDIT COLLECTIONS REP 03/01/2024 3:07 PM CREDIT COLLECTIONS REP Narrative [facility] - 03/01/2024 11:27 PM CREDIT COLLECTIONS REP Test result does not preclude MRSA or SA nasal colonization. [facility] MICRO[facility]OLOGY [facility] [address] [place] [address], * (ABNORMAL) SEDIMENTATION RATE (03/01/2024 2:11 PM CREDIT COLLECTIONS REP) SEDIMENTATION RATE 46(H) <20 mm/hr 2023 2:34 PM CREDIT COLLECTIONS REP [facility] Blood BLOOD SPECIMEN / Unknown Venipuncture / Unknown 03/01/2024 2:11 PM CREDIT COLLECTIONS REP 03/01/2024 2:14 PM CREDIT COLLECTIONS REP [facility] HEMATOLOGY [facility] [address] [place] [address] * (ABNORMAL) CBC WITH AUTO DIFFERENTIAL (03/01/2024 2:11 PM CREDIT COLLECTIONS REP) WHITE BLOOD COUNT 7.4 4.5 - 11.0 thou/cu mm 03/01/2024 2:21 PM [facility] RED BLOOD COUNT 3.84(L) 4.30 - 5.90 mil/cu mm 03/01/2024 2:21 PM [facility] HEMOGLOBIN 11.5(L) 13.5 - 17.5 g/dL 03/01/2024 2:21 PM [facility] HEMATOCRIT 33.7(L) 37.0 - 53.0 % 03/01/2024 2:21 PM [facility] MCV 88 80 - 100 fL 03/01/2024 2:21 PM [facility] MCH 29.9 26.0 - 34.0 pg 03/01/2024 2:21 PM [facility] MCHC 34.1 32.0 - 36.0 g/dL 03/01/2024 2:21 PM [facility] RDW 12.6 11.5 - 15.5 % 03/01/2024 2:21 PM [facility] PLATELET COUNT 153 140 - 440 thou/cu mm 03/01/2024 2:21 PM [facility] MPV 8.8 6.5 - 11.0 fL 03/01/2024 2:21 PM [facility] % NEUT 61.2 % 03/01/2024 2:21 PM [facility] % LYMPH 18.6 % 03/01/2024 2:21 PM [facility] % MONO 19.5 % 03/01/2024 2:21 PM [facility] % EOS 0.3 % 03/01/2024 2:21 PM [facility] % BASO 0.4 % 03/01/2024 2:21 PM [facility] ABSOLUTE NEUTROPHILS 4.5 1.7 - 7.0 thou/cu mm 03/01/2024 2:21 PM [facility] ABSOLUTE LYMPHOCYTES 1.4 0.9 - 2.9 thou/cu mm 03/01/2024 2:21 PM [facility] ABSOLUTE MONOCYTES 1.4(H) <0.9 thou/cu mm 03/01/2024 2:21 PM [facility] ABSOLUTE EOSINOPHILS 0.0 <0.5 thou/cu mm 03/01/2024 2:21 PM [facility] ABSOLUTE BASOPHILS 0.0 <0.3 thou/cu mm 03/01/2024 2:21 PM [facility] Blood BLOOD SPECIMEN / Unknown Venipuncture / Unknown 03/01/2024 2:11 PM CREDIT COLLECTIONS REP 03/01/2024 2:[address] [facility] Marco Antonio Goodwin DO HEMATOLOGY [facility] [address] [place] [address] * LACTATE VENOUS (03/01/2024 2:11 PM CREDIT COLLECTIONS REP) [facility] LACTATE,VENOUS 1.7 0.5 - 2.0 mmol/L 03/01/2024 2:35 PM CREDIT COLLECTIONS REP [facility] Blood BLOOD SPECIMEN / Unknown Venipuncture / Unknown 03/01/2024 2:11 PM CREDIT COLLECTIONS REP 03/01/2024 2:14 PM CREDIT COLLECTIONS REP Marco Antonio Goodwin DO CHEMISTRY Performing Organization Address [facility] Co de Phone Number [facility] [address] [place] [address] * PROCALCITONIN (03/01/2024 2:11 PM CREDIT COLLECTIONS REP) [facility] PROCALCITONIN 0.08 ng/ml 03/01/2024 2:54 PM CREDIT COLLECTIONS REP [facility] Blood BLOOD SPECIMEN / Unknown Venipuncture / Unknown 03/01/2024 2:11 PM CREDIT COLLECTIONS REP 03/01/2024 2:14 PM CREDIT COLLECTIONS REP Narrative [facility] - 03/01/2024 2:54 PM CREDIT COLLECTIONS REP Procalcitonin for initial assessment of Lower Respiratory Tract Infection: Results Interpretation <0.10 ng/mL Antibiotic therapy strongly discoraged. Indicates absent of bacterial infection. * 0.10 - 0.25 ng/mL Antibiotic therapy discouraged. Bacterial infection unlikely. * 0.26 - 0.50 ng/mL Antibiotic therapy encouraged. Bacterial infection possible. >0.50 ng/mL Antibiotic therapy strongly encouraged. Suggestive of presence of bacterial infection. *Antibiotic therapy should be considered regardless of PCT result if the patient is clinically unstable, is at high risk for adverse outcome, has strong evidence of bacterial pathogen, or the clinical context indicates antibiotic therapy is warranted. If antibiotics are withheld, reassess if symptoms persist/worsen and/or repeat PCT measurement within 6-24 hours. In order to assess treatment success and to support a decision to discontinue antibiotic therapy, follow up samples should be tested once every 1-2 days, based upon physician discretion taking into account patient's evolution and progress. Procalcitonin for initial assessment of severe sepsis risk: Results Interpretation <0.5 ng/ml A PCT level below 0.5 ng/ml on the first day of ICU admission is associated with a low risk for progression to severe sepsis and/or septic shock. > 2.0 ng/mL A PCT level above 2.0 ng/mL on the first day of ICU admission is associated with a high risk for progression to severe sepsis and/or septic shock. Note: Concentrations < 0.5 ng/mL do not exclude an infection, on account of localized infections (without systemic signs) which can be associated with such low concentrations, or a systemic infection in its initial stages(< 6 hours). Furthermore, increased procalcitonin can occur without infection. PCT concentrations between 0.5 and 2.0 ng/mL should be interpreted taking into account the patient's history. It is recommended to retest PCT within 6-24 hours if any concentrations < 2 ng/mL are obtained. Marco Antonio Goodwin DO SEND OUTS [facility] [address] [place] [address] * (ABNORMAL) COMP METABOLIC PANEL (03/01/2024 2:11 PM CREDIT COLLECTIONS REP) SODIUM 130(L) 136 - 145 mmol/L 03/01/2024 2:38 PM [facility] POTASSIUM 4.8 3.5 - 5.1 mmol/L 03/01/2024 2:38 PM [facility] CHLORIDE 92(L) 98 - 107 mmol/L 03/01/2024 2:38 PM [facility] CO2,TOTAL 25 22 - 29 mmol/L 03/01/2024 2:38 PM [facility] ANION GAP 13 5 - 18 03/01/2024 2:38 PM [facility] GLUCOSE 118(H) 70 - 99 mg/dL 03/01/2024 2:38 PM [facility] CALCIUM 9.0 8.8 - 10.4 mg/dL 03/01/2024 2:38 PM [facility] Comment: Reference ranges for this test were updated on 02/28/2024 to reflect our healthy population more accurately. Reference range changes are not retroactively applied to results, but previous results using the same methodology can be interpreted in the context of the new reference range. BUN 25(H) 6 - 20 mg/dL 03/01/2024 2:38 PM [facility] CREATININE 1.14 0.70 - 1.20 mg/dL 03/01/2024 2:38 PM [facility] BUN/CREAT RATIO 22(H) 10 - 20 2:38 PM [facility] eGFR 76(L) >90 mL/min/1. 73m2 03/01/2024 2:38 PM [facility] Comment:As of 2021, eG FR is calculated by the CKD-EPI creatinine equation without race adjustment. eGFR can be influenced by muscle mass, exercise, and diet. The reported eGFR is an estimation only and is only applicable if the renal function is stable. ALBUMIN 3.5(L) 4.0 - 4.9 g/dL 03/01/2024 2:38 PM [facility] PROTEIN,TOTAL 6.5 6.0 - 8.0 g/dL 03/01/2024 2:38 PM [facility] BILIRUBIN,TOTAL 0.3 0.0 - 1.2 mg/dL 03/01/2024 2:38 PM [facility] ALK PHOSPHATASE 53 40 - 129 IU/L 03/01/2024 2:38 PM [facility] ALT (SGPT) 9(L) 10 - 50 IU/L 03/01/2024 2:38 PM [facility] AST (SGOT) 22 10 - 50 IU/L 03/01/2024 2:38 PM [facility] Blood BLOOD SPECIMEN / Unknown Venipuncture / Unknown 03/01/2024 2:11 PM CREDIT COLLECTIONS REP 03/01/2024 2:14 PM CREDIT COLLECTIONS REP Marco Antonio Wempen Drevlow DO CHEMISTRY [facility] [address] [place] [address] * XR FOOT 3 VIEWS LEFT (03/01/2024 2:03 PM CREDIT COLLECTIONS REP) Anatomical Region Laterality Modality FEET, FOOT L Digital Radiogra phy 03/01/2024 2:13 PM CREDIT COLLECTIONS REP Narrative 03/01/2024 2:13 PM CREDIT COLLECTIONS REP For Patients: As a result of the Cures Act, medical imaging exams and procedure reports are released immediately into your electronic medical record. You may view this report before your referring provider. If you have questions, please contact your health care provider. Indication: Pain Technique: Three views left foot Comparison: None Findings/Impression: Bones: Well-formed plantar heel spur. Likely cyst versus enchondroma within the proximal phalanx of the great toe. Minimal ossification along the base of the proximal phalanx of the 2nd and 3rd digits. Joint spaces: Unremarkable. Soft tissues: Enthesopathic spurring distal Achilles tendon. Atherosclerosis. Dictated by Chon Bacon MD @ 03/01/2024 2:13:58 PM (Electronically Signed) Procedure Note Chon Bacon MD - 03/01/2024 For Patients: As a result of the Cures Act, medical imagingexams and procedure reports are released immediately into your electronicmedical record. You may view this report before your referring provider.If you have questions, please contact your health care provider. Indication: Pain Technique: Three views left foot Comparison: None Findings/Impression: Bones: Well-formed plantar heel spur. Likely cyst versus enchondromawithin the proximal phalanx of the great toe. Minimal ossification alongthe base of the proximal phalanx of the 2nd and 3rd digits. Joint spaces: Unremarkable. Soft tissues: Enthesopathic spurring distal Achilles tendon.Atherosclerosis. Dictated by Chon Bacon MD @ 03/01/2024 2:13:58 PM (Electronically Signed) Marco Antonio Goodwin DO GENERAL IMAGING * XR FOOT 3 VIEWS RIGHT (03/01/2024 2:01 PM CREDIT COLLECTIONS REP) Anatomical Region Laterality Modality FEET, FOOT R Digital Radiogra phy 03/01/2024 2:11 PM CREDIT COLLECTIONS REP Narrative 03/01/2024 2:11 PM CREDIT COLLECTIONS REP For Patients: As a result of the Cures Act, medical imaging exams and procedure reports are released immediately into your electronic medical record. You may view this report before your referring provider. If you have questions, please contact your health care provider. Indication: Pain Technique: Three views right foot Comparison: None Findings/Impression: Bones: No evidence of acute fracture. Well-formed plantar heel spur. Joint spaces: Unremarkable. Soft tissues: Enthesopathic spurring distal Achilles tendon. Atherosclerosis. Dictated by Chon Bacon MD @ 03/01/2024 2:11:17 PM (Electronically Signed) Procedure Note Chon Bacon MD - 03/01/2024 For Patients: As a result of the Cures Act, medical imagingexams and procedure reports are released immediately into your electronicmedical record. You may view this report before your referring provider.If you have questions, please contact your health care provider. Indication: Pain Technique: Three views right foot Comparison: None Findings/Impression: Bones: No evidence of acute fracture. Well-formed plantar heel spur. Joint spaces: Unremarkable. Soft tissues: Enthesopathic spurring distal Achilles tendon.Atherosclerosis. Dictated by Chon Bacon MD @ 03/01/2024 2:11:17 PM (Electronically Signed) Marco Antonio Tapiamike DO GENERAL IMAGING * TSH WITH REFLEX (01/06/2024 9:51 AM CDT) TSH 2.48 0.27 - 4.20 uIU/mL 01/06/2024 6:34 PM CDT [facility] Blood BLOOD SPECIMEN / Unknown Venipuncture / Unknown 01/06/2024 9:51 AM CDT 01/06/2024 9:51 AM CDT Narrative [facility] - 01/06/2024 6:34 PM CDT In Adults, TSH values between 5.00 and 10.00 uIU/ml do not necessarily indicate the presence of Hypothyroidism. Correlation with clinical findings such as presence of goiter and/or Thyroperoxidase (TPO) Antibody may be helpful. For more information please refer to KIMMY 2004; 291: 228-238. Johan Ye MD CHEMISTRY [facility] [address] [place] [address], * (ABNORMAL) LIPID PANEL W REFLEX MEASURED LDL (11/14/2023 9:06 AM CDT) CHOLESTEROL,TOTAL 117 100 - 199 mg/dL 11/14/2023 6:57 PM CDT [facility] Comment: Cholesterol, Total Reference Ranges Desirable <200 mg/dL Borderline 200-239 mg/dL High >=240 mg/dL TRIGLYCERIDES 156(H) <150 mg/dL 11/14/2023 6:57 PM CDT [facility] HDL CHOLESTEROL 44 >40 mg/dL 6:57 PM CDT [facility] NON-HDL CHOLESTEROL 73 <145 mg/dl 11/14/2023 6:57 PM CDT [facility] CHOL/HDL RATIO 2.66 <4.50 11/14/2023 6:57 PM CDT [facility] LDL CHOLESTEROL 42 <=130 mg/dL 11/14/2023 6:57 PM CDT [facility] VLDL CHOLESTEROL 31(H) <=30 mg/dL 11/14/2023 6:57 PM CDT [facility] PROVIDER ORDERED STATUS RANDOM 11/14/2023 6:57 PM CDT [facility] Blood BLOOD SPECIMEN / Unknown Venipuncture / Unknown 11/14/2023 9:06 AM CDT 11/14/2023 9:06 AM CDT Zhane Stanley DO CHEMISTRY [facility] [address] [place] [address], * CT CHEST SCREENING LOW DOSE WO [...] dose to as low as reasonably achievable. Dictated by: Edward Fallon MD @02/16/2023 10:43:32 AM / LESLEE:noelle Narrative 02/16/2023 2:11 PM CDT For Patients: As a result of the Cures Act, medical imaging exams and procedure reports are released immediately into your electronic medical record. You may view this report before your referring provider. If you have questions, please contact your [...] Unremarkable. MUSCULOSKELETAL: No fracture. Degenerative changes. Zhane Анна Shaqra DO CT * SDNA-FIT EXTERNAL (COLOGUARD) (09/07/2022 10:30 AM CDT) NONINV COLON CA DNA+OCC BLD SCRN STL-IMP Negative Negative 09/12/2022 4:39 PM CDT [facility] (CLIA #:[id number]) Comment: NEGATIVE TEST RESULT. A negative Cologuard result indicates a low likelihood that a colorectal cancer (CRC) or advanced adenoma (adenomatous polyps with more advanced pre-malignant features) is present. The chance that a person with a negative Cologuard test has a colorectal cancer is less than 1 in 1500 (negative predictive value >99.9%) or has an advanced adenoma is less than 5.3% (negative predictive value 94.7%). These data are based on a prospective cross-sectional study of 10,000 individuals at average risk for colorectal cancer who were screened with both Cologuard and colonoscopy. (Oscar Clifford al, N Engl J Med 2014;370(14):6174-9979) The normal value (reference range) for this assay is negative. COLOGUARD RE-SCREENING RECOMMENDATION: Periodic colorectal cancer screening is an important part of preventive healthcare for asymptomatic individuals at average risk for colorectal cancer. Following a negative Cologuard result, the [place] [employer] and U.S. Multi-Society Task Force screening guidelines recommend a Cologuard re-screening interval of 3 years. References: [place] [employer] Guideline for Colorectal Cancer Screening: https://www.cancer.org/cancer/oocpz-wxlbrc-vkasus/khmttqvof-vhrbwwypp-gvdzfkr/ac s-rec ommendations.html.; Rob DK, Dory CR, Juan Luis JuárezK, Colorectal Cancer Screening: Recommendations for Physicians and Patients from the U.S. Multi-Society Task Force on Colorectal Cancer Screening , Am J Gastroenterology 2017; 112:4621-1119. TEST DESCRIPTION: Composite algorithmic analysis of stool DNA-biomarkers with hemoglobin immunoassay. Quantitative values of individual biomarkers are not reportable and are not associated with individual biomarker result reference ranges. Cologuard is intended for colorectal cancer screening of adults of either sex, 45 years or older, who are at average-risk for colorectal cancer (CRC). Cologuard has been approved for use by the U.S. FDA. The performance of Cologuard was established in a cross sectional study of average-risk adults aged 50-84. Cologuard performance in patients ages 45 to 49 years was estimated by sub-group analysis of near-age groups. Colonoscopies performed for a positive result may find as the most clinically significant lesion: colorectal cancer [4.0%], advanced adenoma (including sessile serrated polyps greater than or equal to 1cm diameter) [20%] or non- advanced adenoma [31%]; or no colorectal neoplasia [45%]. These estimates are derived from a prospective cross-sectional screening study of 10,000 individuals at average risk for colorectal cancer who were screened with both Cologuard and colonoscopy. (Oscar Clifford al, N Engl J Med 2014;370(14):6591-8893.) Cologuard may produce a false negative or false positive result (no colorectal cancer or precancerous polyp present at colonoscopy follow up). A negative Cologuard test result does not guarantee the absence of CRC or advanced adenoma (pre-cancer). The current Cologuard screening interval is every 3 years. ([place] [employer] and U.S. Multi-Society Task Force). Cologuard performance data in a 10,000 patient pivotal study using colonoscopy as the reference method can be accessed at the following location: www.[employer]/results. Additional description of the Cologuard test process, warnings and precautions can be found at www.[employer]. Stool specimen (specimen) (Rectum) 09/07/2022 10:30 AM CDT 09/08/2022 2:42 PM CDT Zhane Damontamara DO URINE [facility] (CLIA #:[id number]) [place] [address], * ANTI HCV (06/25/2020 7:57 AM CREDIT COLLECTIONS REP) HEPATITIS C ANTIBODY Non-React adithya Non-React adithya 06/25/2020 3:43 PM CREDIT COLLECTIONS REP [facility] Comment:Antibodies to HCV no t detected; does not exclude the possibility of exposure to HCV. Blood BLOOD SPECIMEN / Unknown Butterfly / Unknown 06/25/2020 7:57 AM CREDIT COLLECTIONS REP 06/25/2020 8:25 AM CREDIT COLLECTIONS REP Brandan Woodard MD SEND OUTS [facility] [address] [place] [address], [place] * ANTI HIV 1/2 (06/25/2020 7:57 AM CREDIT COLLECTIONS REP) HIV-1/HIV-2 ANTIBODY Non-Reacti ve Non-Reacti ve 06/25/2020 3:44 PM CREDIT COLLECTIONS REP [facility] Comment:HIV-1 p24 and HIV-1/ HIV-2 Ab not detected. Blood BLOOD SPECIMEN / Unknown Butterfly / Unknown 06/25/2020 7:57 AM CREDIT COLLECTIONS REP 06/25/2020 8:25 AM CREDIT COLLECTIONS REP Brandan Woodard MD SEND OUTS [facility] 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 POLST 08/20/2020 5:18 PM POLST - * Full Code (Latest Code Status on File) Date Activated Date Inactivated Comments 03/02/2024 8:23 AM 03/03/2024 2:11 PM Question Answer Comments Code Status Discussion: Reviewed Preferences * Full Code Date Activated Date Inactivated Comments 03/01/2024 1:39 PM 03/02/2024 8:23 AM Question Answer Comments Code Status Discussion: Unable to Assess Preferences, Provider to review later * Full Code Date Activated Date Inactivated Comments 06/23/2020 2:51 PM 07/01/2020 12:37 PM Question Answer Comments Code Status Discussion: Not Discussed * Full Code Date Activated Date Inactivated Comments 06/18/2020 7:15 PM 06/19/2020 4:44 PM Question Answer Comments Code Status Discussion: Discussed * Full Code Date Activated Date Inactivated Comments 05/12/2020 1:00 PM 05/20/2020 7:40 PM Question Answer Comments Code Status Discussion: Discussed Care Teams Scheduler Maintenance Relationship Specialty Start Date End Date Zhane Stanley [place] [facility] [place] [address] PCP - General Internal Medicine 09/08/20 Glenys Alcantar MD [address] [place] [address] Endocrinology 05/03/17 [facility], [facility] [address] [place] [address] 05/21/20 Samantha Grayson PharmD [address] [place] [address] Pharmacist Medication Management Pharmacology 10/21/20
--- OUTSIDE RECORDS SUMMARY | 2024-03-16 08:38 | XMS_ITS | Encounter Summary ---
Author Organization [facility] Address [address] [place] [address] Care Team Providers Care Senior Pensions Administrator Name Role Phone Zhane Stanley DO Primary Care Provider [phone] Encounter Details Date Type Department Care Team (Late st Contact Info) Description 10/08/2023 Orders Only [facility] [address] [place] [address] Mike Edmondson MD [address] [place] [address] Hypo-osmolality and hyponatremia Social History Tobacco Use Types Packs/Day Years Used Date Smoking Tobacco: Former Cigarettes 1 37.2 Passive Smoke Exposure: Past Smokeless Tobacco: Never Alcohol Use Standard Drinks/Week Comments Not Currently 0 (1 standard drink = 0.6 oz pur e alcohol) Sex and Gender Information Value Date Recorded Sex Assigned at Not on file Legal Sex Male 11:22 AM EDT Gender Identity Not on file Sexual Orientation Not on file documented as of this encounter Plan of Treatment Not on file documented as of this encounter Procedures Procedure Name Priority Date/Time Associated Diagnosis Comments BASIC METABOLIC PANEL Routine 09/23/2023 Hypo-osmolality and hyponatremia documented in this encounter Results * (ABNORMAL) Basic metabolic panel (09/23/2023) Sodium 129(L) mEq/L [facility] Potassium 4.9 mEq/L [facility] Chloride 92(L) [facility] Carbon Dioxide 25 mmol/L [facility] Calcium 9.4 mg/dL [facility] BUN 19 mg/dL [facility] Creatinine 1.04 mg/dL [facility] Glucose 164(H) mg/dL [facility] eGFR 86 [facility] Anion Gap 12 [facility] Blood (Blood, Venous) 09/23/2023 us Mike Edmondson MD LAB BLOOD ORDERABLES Final Resul t [facility] documented in this encounter Visit Diagnoses Diagnosis Hypo-osmolality and hyponatremia documented in this encounter Care Teams Senior Pensions Administrator Relationship Specialty Start Date End Date Zhane Stanley DO [address] [place] [address] PCP - General Family Medicine 07/27/23 documented as of this encounter
--- OUTSIDE RECORDS SUMMARY | 2024-03-16 08:38 | XMS_ITS | Clinical Summary ---
Author Organization [facility] [place] Address [address] [place] [address] Phone Care Team Providers Care Pilot Control Operator Name Role Phone Zhane Stanley DO Primary Care Provider [phone] Allergies Active Allergy Reactions Criticality Noted Date Comments Aripiprazole 06/09/2008 Tardive dyskinsia Bupropion Anxiety,Nausea Low 04/29/2017 Clonazepam Other (see comments) 08/11/2021 Neuroleptic shock Haloperidol 02/13/2007 Tardive dyskinsia Nitroglycerin Nausea And Vomiting Medium 04/09/2013 Thiothixene 02/13/2007 Tardive dyskinsia Trifluoperazine Other (see comments) 03/15/2009 Confusion, heart palpitations Ziprasidone Other (see comments) 03/15/2009 Tardive dyskinsia Medications loperamide (IMODIUM) 2 MG capsule Take 2 mg by mouth if needed Active metFORMIN (GLUCOPHAGE) 1000 MG tablet Take 1,000 mg by mouth in the morning and 1,000 mg in the evening. Take with meals. 07/29/19 24 Active gabapentin (NEURONTIN) 300 MG capsule Take 900 mg by mouth in the morning and 900 mg in the evening and 900 mg before bedtime. 04/06/20 23 Active furosemide (LASIX) 20 MG tablet Take 20 mg by mouth 1 (one) time each day 07/29/19 24 Active insulin degludec (TRESIBA FLEX TOUCH) 200 UNIT/ML injection Inject 28 Units under the skin every night 05/08/19 24 Active NovoLOG FLEXPEN 100 UNIT/ML injection INJECT 10 UNITS SUBCUTANEOUSLY THREE TIMES DAILY WITH MEALS PLUS PER SLIDING SCALE. Sliding scale as follows: 150-199 (add 2 units), 200-249 (add 3 units), 250-299 (add 4 units), 300-349 (add 5 units), 350-399 (add 6 units), 400+ (add 8 units) 07/12/19 21 Active magnesium hydroxide (MILK OF MAGNESIA) 400 MG/5ML suspension Take 15-30 mL by mouth 1 (one) time each day if needed Active QUEtiapine (SEROquel) 200 MG tablet Take 200 mg by mouth every night 03/02/20 20 Active polyethylene glycol (GLYCOLAX) 17 GM/SCOOP powder Take 17 g by mouth 1 (one) time each day if needed (constipation) 05/24/19 23 Active trihexyphenidyl (ARTANE) 5 MG tablet Take 5 mg by mouth in the morning and 5 mg in the evening. 12/14/19 23 Active rosuvastatin (CRESTOR) 20 MG tablet Take 20 mg by mouth every night 07/29/19 24 Active multivitamin (THERAGRAN) tablet Take 1 tablet by mouth 1 (one) time each day Active ondansetron ODT (ZOFRAN-ODT) [address] 4 mg under the tongue every 8 (eight) hours if needed for nausea or vomiting 03/09/20 21 Active nicotine polacrilex (COMMIT) [address] 1 LOZENGE IN MOUTH, BETWEEN CHEEK & GUM EVERY 1 HOUR WHILE AWAKE NEEDED FOR CRAVINGS *MAX OF 20 DOSES PER DAY* 09/18/19 23 Active ALPRAZolam (XANAX) 0.5 MG tablet Take 1 tablet (0.5 mg) by mouth 2 times daily. May take 1 tablet (0.5 mg) daily as needed for anxiety. Further refills will be prescribed during an appointment 07/13/19 24 Active acetaminophen (TYLENOL) 325 MG tablet Take 325 mg by mouth every 4 (four) hours if needed (For pain. Max acetaminophen dose: 4000mg in 24 hrs.) 06/30/19 23 Active aspirin (ST BINTA) 81 MG EC tablet Take 81 mg by mouth 1 (one) time each day with breakfast 09/18/19 23 Active busPIRone (BUSPAR) 30 MG tablet Take 30 mg by mouth in the morning and 30 mg in the evening. 12/14/19 23 Active Empagliflozin 10 MG tablet Take 10 mg by mouth in the morning. 07/29/19 24 Active divalproex (DEPAKOTE) 500 MG EC tablet Take 1,000 mg by mouth in the morning and 1,000 mg in the evening. 12/14/19 23 Active propranolol (INDERAL) 10 MG tablet Take 1 tablet (10 mg) by mouth 2 times daily, every morning AND around 4 PM. May also take 1 tablet (10 mg) 2 times daily if needed for anxiety or shaking. Wait 1 hour between doses. Further refills will be prescribed during an appointment 09/26/19 24 Active diphenhydrAMINE (BENADRYL) 25 MG tablet Take 25 mg by mouth every 6 (six) hours if needed for sleep 08/15/19 24 Active Urea 15 g packIndications: Hypo-osmolality and hyponatremia Take 15 g by mouth in the morning and 15 g in the evening. 180 each 3 10/04/19 24 Active lisinopril 10 MG tablet Take 10 mg by mouth in the morning. 10/11/19 24 Active propranolol (INDERAL) 40 MG tablet Take 40 mg by mouth in the morning and 40 mg in the evening. 12/30/19 24 Active Active Problems Problem Noted Date Diagnosed Date Type 2 diabetes mellitus wit h diabetic chronic kidney disease 08/05/2023 Overview (08/08/2023): Present for decades. Baseline A1c between 10-11 range. + Bilateral retinopathy. Assessment & Plan (01/09/2024 1:32 PM CDT): Stable. Tolerating exogenous insulin, metformin, SGLT2 inhibitor class measures, etc. Assessment & Plan (10/04/2023 11:11 AM CDT): Stable. Continue current medication regimen as ordered which includes insulin, metformin, and empagliflozin. Otherwise per PCP. 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 Assessment & Plan (08/08/2023 4:56 PM CDT): No symptoms currently. Chronic kidney disease, stage 2 (mild) Overview (01/09/2024): Baseline creatinine approximately 1-1.2 range for several years. Longstanding, documented albuminuria, first identified November 2010 at 39 mg/g (from [id number], values arranged between 80-150 mg/g). Recent values from August 2019 at 542 mg/g and 1281 mg/g in April 2022. Urine albumin creatinine ratio from September 2023 at 1527 mg/g. 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 Assessment & Plan (01/09/2024 1:30 PM CDT): Stable. Creatinine and GFR. Unchanged from previous values. He is at baseline. Continue current cares including SGLT2 inhibitor class of medicines as well as examiner. No medications for up titration of diuretic at this time. Based on hypertension, I would prefer to hold off on sodium loading. Follow-up in 6 months. Assessment & Plan (10/03/2023 4:49 PM CDT): Stable. Known albuminuria as described above. Continue LEANDER inhibitor as ordered along with strict glucose control. He appears to continue to tolerate sodium glucose transporter-2 class of medications nicely with no evidence of euglycemic ketoacidosis. Continue annual surveillance on our end. Assessment & Plan (08/08/2023 4:56 PM CDT): Historically tends to run high end of normal potassium values for years. With hypochloremia. Total CO2 tends to be in the very normal if not high end of normal range. Higher than average risk for progressive CKD in his lifetime. Recommend continuing SGL 2 inhibitor class of medications including LEANDER inhibitor as they are ordered at this time. Further workup would be of low yield. Ongoing, aggressive diabetes control and avoidance of NSAIDs will be perez. Hypo-osmolality and hyponatremia 08/05/2023 Overview (01/09/2024): Levels ranging between 126-133 since 2010. Urine osmolality in February 2021: 546. TSH 0.63 and spot cortisol 13.1 in February 2021. 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 Assessment & Plan (01/09/2024 1:57 PM CDT): Longstanding. Most recent sodium 129. Within range for his historical goal. He is moving forward his to continue loop diuretic, sodium intake (of course within reason and taking into account his history of high blood pressure, cardiovascular disease, and CKD), and fluid restriction. Patient would ideally be started on urea powder but he is unable to afford this medication at this time. Continue surveillance only with no new changes. Assessment & Plan (10/04/2023 11:13 AM CDT): Improved compared to last visit. Taking into account the blood glucose on the assay from 22 September, the sodium corrects up to 131. Long discussion today regarding hyponatremia and the attempt to bring forth normonatremia to maximize cognitive capabilities, gait stability, and to minimize brain fog. As stated in previous visit, highly suspect that he has SIADH related physiology as driven by his underlying, necessary medications. We will attempt to prescribe urea powder through his pharmacy. Goal will be to administer twice daily. We talked about fluid restricting to no more than 40-46 ounces of volume per day. Assessment & Plan (08/08/2023 4:58 PM CDT): Longstanding historically speaking. Due to the length of time that he has been manifesting low sodium values, there is an incredibly low likelihood of underlying, life-threatening pathology. With higher potassium values, there may also be a component of type IV RTA (or, diabetes related adrenal insufficiency) that may also be contributing to this. But overall, there is a higher likelihood that he has SIADH related physiology. It is important to be aware he is on several medications that can potentially magnify including trihexyphenidyl, quetiapine, paliperidone, divalproex and (less frequent) LEANDER inhibitor. These medications would not be able to be discontinued since they serve an incredibly important role for both his cardiovascular, renal, and psychiatric health. Further workup would be of incredibly low yield at this point in time. Highly recommend trial of urea powder to be administered on a twice a day basis. Will attempt to secure this through his pharmacy that he uses through his assisted living. If unable, we will recommend that he seek this via private pay at roughly $50 per day at [employer] website. If he is able to secure this food we will recommend blood work within a week to assure stability and improvement. We will tentatively plan to see patient in 2 months in follow-up. Pure hypercholesterolemia 08/05/2023 Assessment & Plan (10/04/2023 11:11 AM CDT): Stable. Continue statin as currently ordered. Anemia 05/02/2012 Overview (08/07/2023): Most recent hemoglobin excellent at 13.1 on 07/12/2023 Assessment & Plan (08/07/2023 4:41 PM CDT): Patient appears to be at his baseline of high 12-13 g/dL range which stretches back to 2019. Prior values he was around 15-16 100. He does not have a historical SPEP on record. Hypertensive chronic kidney disease, benign, with chronic kidney disease stage I through stage IV, or unspecified 05/13/2011 Assessment & Plan (01/09/2024 1:56 PM CDT): Stable. Repeat blood pressure performed personally by me at the chair side today was 128/75. Continue current cares. Assessment & Plan (10/04/2023 11:11 AM CDT): Improving. Continue current medication regimen as ordered. No evidence of fluid overload on examination. Assessment & Plan (08/08/2023 4:56 PM CDT): Longstanding history of elevated blood pressure. Will target this further when the patient has better managed sodium levels. See specific section regarding that. Resolved Problems Problem Noted Date Diagnosed Date Resolved Date Vitamin D deficiency 10/25/2018 024 Encounters Date Type Department Care Team Description 03/06/2024 Documentation Only [facility] [address] [place] [address] Mike Edmondson MD 01/09/2024 1:30 PM CDT Office Visit [facility] [place] [address] [address] Mike Edmondson MD Hypo-osmolality and hyponatremia (Primary Dx); Chronic kidney disease, stage 2 (mild); Hypertensive chronic kidney disease, benign, with chronic kidney disease stage I through stage IV, or unspecified; Type 2 diabetes mellitus with diabetic chronic kidney disease (HCC) 01/04/2024 Orders Only [facility] [place] [address] [address] Mike Edmondson MD Hypo-osmolality and hyponatremia 12/22/2023 Telephone [facility] [address] [facility] [address] [place] [address] Brisa Paulino from Last 3 Months Immunizations Name Administration Dates Next Due Hepatitis B 03/02/2023,08/18/2020 Influenza, Quadrivalent, Preservative Free 02/07,02/02/2022 Pfizer SARS-COV-2 10/01/2021,09/16/2020,08/27/19 21 Pneumococcal Conjugate Pcv 20 03/02/2023 Shingrix 03/07/2023 Family History Medical History Relation Comments Cancer Father Bone Marrow Canc er Diabetes Father Gout Father Heart disease Father Stroke Father No Known Problems Mother Diabetes Sister Heart disease Sister Relation Status Comments Father Alive Maternal Grandfather Maternal Grandmother Mother Paternal Grandfather Paternal Grandmother Sister Alive Social History Tobacco Use Types Packs/Day Years [...] Sign Reading Time Taken Comments Blood Pressure 152/94 01/09/2024 1:33 PM CDT Pulse 77 01/09/2024 1:33 PM CDT Temperature - - Respiratory Rate - - Oxygen Saturation 97% 01/09/2024 1:33 PM CDT Inhaled Oxygen Concentration - - Weight 91.6 kg (202 lb) 01/09/2024 1:33 PM CDT Height 177.8 cm (5' 10) 01/09/2024 1:33 PM CDT Body Mass Index 28.98 01/09/2024 1:33 PM CDT Plan of Treatment Health Maintenance Due Date Last Done Comments Hepatitis B Vaccine (1 of 3 - 19+ 3-dose series) 1989 03/02/2023, 08/18/2020 Colorectal Cancer Screening: Annual FOBT 2019 Colorectal Cancer Screening: Colonoscopy 2019 Colorectal Cancer Screening: Sigmoidoscopy 2019 Diabetes: Ophthalmology Exam 07/27/2023 07/30/2020 Diabetes: Pedal Pulse Checked 07/27/2023 Diabetes: Sensory Foot Exam 07/27/2023 Diabetes: Visual Foot Exam 07/27/2023 Diabetes: Hemoglobin A1C 12/24/2023 09/23/2023, 11/23 Influenza Vaccine (#1) 2023 02/07/2023, 2021 Pneumococcal Vaccine: Pediat rics (0 to 5 Years) and At-Risk Patients (6 to 64 Years) Completed 03/02/2023 Procedures Procedure Name Priority Date/Time Associated Diagnosis Comments BASIC METABOLIC PANEL Routine 01/06/2024 Hypo-osmolality and hyponatremia from Last 3 Months Results * (ABNORMAL) Basic metabolic panel (01/06/2024) Sodium 129(L) mEq/L [facility] Potassium 5.2(H) mEq/L [facility] Chloride 93(L) [facility] Carbon Dioxide 27 mmol/L [facility] Calcium 9.2 mg/dL [facility] BUN 23(H) mg/dL [facility] Creatinine 1.12 mg/dL [facility] Glucose 96 mg/dL [facility] eGFR 79(L) [facility] Comment:As of 2021, eG FR is calculated by the CKD-EPI creatinine equation without race adjustment. eGFR can be influenced by muscle mass, exercise, and diet. The reported eGFR is an estimation only and is only applicable if the renal function is stable. Anion Gap 9 [facility] Blood (Blood, Venous) 01/06/2024 Mike Edmondson MD LAB BLOOD ORDERABLES Final Resul t [facility] from Last 3 Months Insurance MEDICARE MEDICAID [place] Care Teams Pilot Control Operator Relationship Specialty Start Date End Date Zhane Stanley DO [address] [place] [address] PCP - General Family Medicine 07/27/23
--- OUTSIDE RECORDS SUMMARY | 2024-03-16 08:38 | XMS_ITS | Encounter Summary ---
Author Organization [facility] Address [address] [place] [address] Care Team Providers Care Examiner Of Currency Name Role Phone Zhane Stanley DO Primary Care Provider [phone] Reason for Visit * Reason Comments Follow-up Encounter Details Date Type Department Care Team (Latest Contact Info) Description 01/09/2024 1:30 PM CDT Office Visit [facility] [address] [place] [address] Mike Edmondson MD [address] [place] [address] Hypo-osmolality and hyponatremia (Primary Dx); Chronic kidney disease, stage 2 (mild); Hypertensive chronic kidney disease, benign, with chronic kidney disease stage I through stage IV, or unspecified; Type 2 diabetes mellitus with diabetic chronic kidney disease (HCC) Social History Tobacco Use Types Packs/Day Years [...] Mass Index 28.98 01/09/2024 1:33 PM CDT documented in this encounter Patient Instructions * Patient Instructions* Mike Edmondson MD - 01/09/2024 1:30 PM CDT Patient is doing very well. Stable hyponatremia. No further recommendations at this time with the exception of increasing sodium content in food as well as limiting fluid intake as discussed at length in clinic. Will plan to see the patient in 6 months time. Please contact me if you need to be seensooner or if you have questions or concerns in the interim. We will contact you to schedule your 6 month follow up when the schedule becomes available. Labs should be completed 1-2 weeks prior. They will be faxed to [facility] Ed[facility]son/JACLYN Ledezma documented in this encounter Progress Notes * Mike Edmondson MD - 01/09/2024 1:30 PM CDT Images from the original note were not included. Patient: Timur Krishnamurthy Date of : 1970 Chart: [id number] PCP: Zhane Stanley DO Date of Service: 01/09/2024 Chief Complaint: Hyponatremia Subjective: Patient returns in follow-up of the above. He was seen last in September 2023. We attempted to prescribe urea powder through his pharmacy but were unsuccessful. We also requested attempt at fluid restricting to no more than 40-46 ounces per day. December 2023: Sodium 129, potassium 5.2, glucose 96, creatinine 1.12. Recent medication changes per psychiatry as taken place that he has tolerated. Appetite remains excellent. He is adding additional sodium to his food. No fluid retention. He is attempting to limit oral fluid intake. Assessment & Plan Problem List Hypertensive chronic kidney disease, benign, with chronic kidney disease stage I through stage IV, or unspecified Current Assessment & Plan Stable. Repeat blood pressure performed personally by me at the chair side today was 128/75. Continue current cares. Type 2 diabetes mellitus with diabetic chronic kidney disease (HCC) (Chronic) Overview Present for decades. Baseline A1c between 10-11 range. + Bilateral retinopathy. Current Assessment & Plan Stable. Tolerating exogenous insulin, metformin, SGLT2 inhibitor class measures, etc. Chronic kidney disease, stage 2 (mild) (Chronic) Overview Baseline creatinine approximately 1-1.2 range for several years. Longstanding, documented albuminuria, first identified November 2010 at 39 mg/g (from 1313-3288, values arranged between 80-150 mg/g). Recent values from August 2019 at 542 mg/g and 1281 mg/g in April 2022. Urine albumin creatinine ratio from September 2023 at 1527 mg/g. 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 Current Assessment & Plan Stable. Creatinine and GFR. Unchanged from previous values. He is at baseline. Continue current cares including SGLT2 inhibitor class of medicines as well as examiner. No medications for up titrationof diuretic at this time. Based on hypertension, I would prefer to hold off on sodium loading. Follow-up in 6 months. Hypo-osmolality and hyponatremia - Primary (Chronic) Overview Levels ranging between 126-133 since 2010. Urine osmolality in February 2021: 546. TSH 0.63 and spot cortisol 13.1 in February 2021. 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 Current Assessment & Plan Longstanding. Most recent sodium 129. Within range [...] Continue surveillance only with no new changes. Relevant Orders Basic Metabolic Panel Return in about 6 months (around 07/08/2024) for Recheck. Mike Edmondson MD [facility] The following portions of the patient's chart were reviewed in this encounter and updated as appropriate: Tobacco Allergies Meds Problems Med Hx Surg Hx Fam Hx Review of Systems Psychiatric/Behavioral: Positive for depression. Negative for suicidal ideas. The patient is nervous/anxious. These issues are chronic for this patient. They are well-managed. All other systems reviewed and are negative. 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 Chronic kidney disease, stage 2 (mild) Hypo-osmolality and hyponatremia Pure hypercholesterolemia History of Present Illness Past Medical History: Diagnosis Date Diabetes mellitus without mention of complication, type II or unspecified type, not stated as uncontrolled (HCC) Essential hypertension Other and unspecified hyperlipidemia Past Surgical History: Procedure Laterality Date CORONARY STENT PLACEMENT Family History Problem Relation Age of Onset No Known Problems Mother Gout Father Stroke Father Cancer Father Bone Marrow Cancer Heart disease Father Diabetes Father Heart disease Sister Diabetes Sister Social History Tobacco Use Smoking status: Former Current packs/day: 1.00 Average packs/day: 1 pack/day for 37.2 years (37.2 ttl pk-yrs) Types: Cigarettes Passive exposure: Past Smokeless tobacco: Never Vaping Use Vaping status: Never Used Substance Use Topics Alcohol use: Not Currently Drug use: Never Taking? Provider LT acetaminophen (TYLENOL) 325 MG tablet Bharathi Nguyen MD Take 325 mg by mouth every 4 (four) hours if needed (For pain. Max acetaminophen dose: 4000mg in 24hrs.) ALPRAZolam (XANAX) 0.5 MG tablet Bharathi Nguyen MD Take 1 tablet (0.5 mg) by mouth 2 times daily. May take 1 tablet (0.5 mg) daily as needed for anxiety. Further refills will be prescribed during an appointment aspirin (ST BINTA) 81 MG EC tablet Bharathi Nguyen MD Take 81 mg by mouth 1 (one) time each day with breakfast busPIRone (BUSPAR) 30 MG tablet Bharathi Nguyen MD Take 30 mg by mouth in the morning and 30 mg in the evening. diphenhydrAMINE (BENADRYL) 25 MG tablet Bharathi Nguyen MD Take 25 mg by mouth every 6 (six) hours if needed for sleep divalproex (DEPAKOTE) 500 MG EC tablet Bharathi Nguyen MD Take 1,000 mg by mouth in the morning and 1,000 mg in the evening. Empagliflozin 10 MG tablet Bharathi Nguyen MD Take 10 mg by mouth in the morning. furosemide (LASIX) 20 MG tablet Bharathi Nguyen MD Take 20 mg by mouth 1 (one) time each day gabapentin (NEURONTIN) 300 MG capsule Bharathi Nguyen MD Take 900 mg by mouth in the morning and 900 mg in the evening and 900 mg before bedtime. insulin degludec (TRESIBA FLEX TOUCH) 200 UNIT/ML injection Bharathi Nguyen MD Inject 28 Units under the skin every night lisinopril 10 MG tablet Bharathi Nguyen MD Take 10 mg by mouth in the morning. loperamide (IMODIUM) 2 MG capsule Bharathi Nguyen MD Take 2 mg by mouth if needed magnesium hydroxide (MILK OF MAGNESIA) 400 MG/5ML suspension Bharathi Nguyen MD Take 15-30 mL by mouth 1 (one) time each day if needed metFORMIN (GLUCOPHAGE) 1000 MG tablet Bharathi Nguyen MD Take 1,000 mg by mouth in the morning and 1,000 mg in the evening. Take with meals. multivitamin (THERAGRAN) tablet Bharathi Nguyen MD Take 1 tablet by mouth 1 (one) time each day nicotine polacrilex (COMMIT) 2 MG lozenge Bharathi Nguyen MD PLACE 1 LOZENGE IN MOUTH, BETWEEN CHEEK & GUM EVERY 1 HOUR WHILE AWAKE NEEDED FOR CRAVINGS *MAX OF 20 DOSES PER DAY* NovoLOG FLEXPEN 100 UNIT/ML injection Bharathi Nguyen MD INJECT 10 UNITS SUBCUTANEOUSLY THREE TIMES DAILY WITH MEALS PLUS PER SLIDING SCALE. Sliding scale as follows: 150-199 (add 2 units), 200-249 (add 3 units), 250-299 (add 4 units), 300-349 (add 5 units), 350-399 (add 6 units), 400+ (add 8 units) ondansetron ODT (ZOFRAN-ODT) 4 MG dispersible tablet Bharathi Nguyen MD Place 4 mg under the tongue every 8 (eight) hours if needed for nausea or vomiting polyethylene glycol (GLYCOLAX) 17 GM/SCOOP powder Bharathi Nguyen MD Take 17 g by mouth 1 (one) time each day if needed (constipation) propranolol (INDERAL) 10 MG tablet Bharathi Nguyen MD Take 1 tablet (10 mg) by mouth 2 times daily, every morning AND around 4 PM. May also take 1 tablet(10 mg) 2 times daily if needed for anxiety or shaking. Wait 1 hour between doses. Further refills will be prescribed during an appointment propranolol (INDERAL) 40 MG tablet Bharathi Nguyen MD Take 40 mg by mouth in the morning and 40 mg in the evening. QUEtiapine (SEROquel) 200 MG tablet Bharathi Nguyen MD Take 200 mg by mouth every night rosuvastatin (CRESTOR) 20 MG tablet Bharathi Nguyen MD Take 20 mg by mouth every night trihexyphenidyl (ARTANE) 5 MG tablet Bharathi Nguyen MD Take 5 mg by mouth in the morning and 5 mg in the evening. Urea 15 g pack () Mike Edmondson MD Take 15 g by mouth in the morning and 15 g in the evening. Allergies Allergen Reactions Nitroglycerin Nausea And Vomiting Aripiprazole Tardive dyskinsia Clonazepam Other (see comments) Neuroleptic shock Haloperidol Tardive dyskinsia Thiothixene Tardive dyskinsia Trifluoperazine Other (see comments) Confusion, heart palpitations Ziprasidone Other (see comments) Tardive dyskinsia Bupropion Anxiety and Nausea Patient reports longstanding tobacco use, but has been tobacco use free for the last few years, using nicotine replacement in the form of lozenges. Physical Exam BP 152/94 (BP Location: Left upper arm, Patient Position: Sitting, BP Cuff Size: Adult) Pulse 77 Ht 5' 10 (1.778 m) Wt 202 lb (91.6 kg) SpO2 97% BMI 28.98 kg/m?? Vitals reviewed. Constitutional: He is oriented to person, place, and time. Cardiovascular: He exhibits no edema. Pulmonary/Chest: Effort normal. Abdominal: Soft. Musculoskeletal: Normal range of motion. Neurological: He is alert and oriented to person, place, and time. Skin: Skin is warm and dry. Psychiatric: He has a normal mood and affect. His behavior is normal. Judgment normal. Chemistry and Bone Mineral Lab Units 01/06/24 0000 09/23/23 0000 07/12/23 0000 09/10/22 0000 SODIUM mEq/L 129* 129* 128* 130* POTASSIUM mEq/L 5.2* 4.9 4.9 5.1 CHLORIDE 93* 92* 93* 92* CO2 mmol/L 27 25 24 24 CALCIUM mg/dL 9.2 9.4 9.0 9.2 GLUCOSE mg/dL 96 164* 82 99 BUN mg/dL 23* 19 20 18 CREATININE mg/dL 1.12 1.04 1.04 1.16 EGFR 79* 86 86* 76* CBC and Iron Studies Lab Units 07/12/23 0000 07/02/22 0000 WBC AUTO K/uL 5.0 5.4 HEMATOCRIT % 36.8* 35.5* HEMOGLOBIN g/dL 13.1* 12.7* MCV 84 86 PLATELETS AUTO 168 157 No lab exists for component: GLUCOSEUR, BILIRUBINUR, SPECGRAV, RBCUR, LEUKOCYTESUR, NITRITE I have performed a complete review of pertinent lab results. documented in this encounter Miscellaneous Notes * Assessment & Plan Note - Mike Edmondson MD - 01/09/2024 1:32 PM CDTAssociated Problem(s): Type 2 diabetes mellitus with diabetic chronic kidney disease (HCC) Stable. Tolerating exogenous insulin, metformin, SGLT2 inhibitor class measures, etc. * Assessment & Plan Note - Mike Edmondson MD - 01/09/2024 1:31 PM CDTAssociated Problem(s): Hypo-osmolality and hyponatremia Longstanding. Most recent sodium 129. Within range [...] Continue surveillance only with no new changes. * Assessment & Plan Note - Mike Edmondson MD - 01/09/2024 1:31 PM CDTAssociated Problem(s): Hypertensive chronic kidney disease, benign, with chronic kidney disease stage I through stage IV, or unspecified Stable. Repeat blood pressure performed personally by me at the chair side today was 128/75. Continue current cares. * Assessment & Plan Note - Mike Edmondson MD - 01/09/2024 1:30 PM CDTAssociated Problem(s): Chronic kidney disease, stage 2 (mild) Stable. Creatinine and GFR. Unchanged from previous values. He is at baseline. Continue current cares including SGLT2 inhibitor class of medicines as well as examiner. No medications for up titrationof diuretic at this time. Based on hypertension, I would prefer to hold off on sodium loading. Follow-up in 6 months. documented in this encounter Plan of Treatment Scheduled Orders Name Type Priority Associated Diagnoses Orde r Schedule Basic Metabolic Panel Lab Routine Hypo-osmolality and hyponatremia Expected: 07/08/2024 (Approximate), Expires: 02/07/2025 documented as of this encounter Visit Diagnoses Diagnosis Hypo-osmolality and hyponatremia- Primary Chronic kidney disease, stage 2 (mild) Hypertensive chronic kidney disease, benign, with chronic kidney disease stage I through stage IV, or unspecified Type 2 diabetes mellitus with diabetic chronic kidney disease (HCC) documented in this encounter Care Teams Examiner Of Currency Relationship Specialty Start Date End Date Zhane Stanley DO [address] [place] [address] PCP - General Family Medicine 07/27/23 documented as of this encounter
--- OUTSIDE RECORDS SUMMARY | 2024-03-16 08:38 | XMS_ITS | Encounter Summary ---
Author Organization [facility] Address [address] [place] [address] Care Team Providers Care Elevator Technician Name Role Phone Zhane Stanley DO Primary Care Provider [phone] Encounter Details Date Type Department Care Team (Late st Contact Info) Description 12/22/2023 Telephone [facility] [address] [place] [address] Brisa Paulino [address] [place] [address] Social History Tobacco Use Types Packs/Day Years [...] documented as of this encounter Miscellaneous Notes * Telephone Encounter - Brisa Paulino - 12/22/2023 12:11 PM CDT Left a voicemail reminding patient to have previsit labs completed prior to their visit. Faxed order to [facility]. Asked patient to call back if they would like the orders faxed elsewhere or if they would like to schedule with [facility] lab. documented in this encounter Plan of Treatment Not on file documented as of this encounter Visit Diagnoses Not on filedocumented in this encounter Care Teams Elevator Technician Relationship Specialty Start Date End Date Zhane Stanley DO [address] [place] [address] PCP - General Family Medicine 07/27/23 documented as of this encounter
--- OUTSIDE RECORDS SUMMARY | 2024-03-16 08:38 | XMS_ITS | Clinical Summary ---
Author Organization [facility] Address [address] [address] Care Team Providers Care Deputy Director Of Finance Name Role Phone Needs Pcp, Assignment Primary Care Provider [phone] Source Comments You are receiving this document [...] for each transition of care or referral. [facility] Allergies Active Allergy Reactions Criticality Noted Date [...] a day. 1 Each 0 06/09/2016 Active [place] SLTOUCH ULTRA CONTROL solutionIndications :Uncontrolled type 2 diabetes mellitus with diabetic polyneuropathy, with long-term current use of insulin Use to test as needed. 1 Each 11 06/09/2016 Active multivitamin (THERAGRAN) tablet Take 1 Tablet by mouth. Active divalproex (DEPAKOTE DR) 250 MG enteric coated tablet Take 1,000 mg by mouth two times a day. Active levOCARNitine (CARNITOR) 330 MG tablet TK 3 TS PO QD 5 03/06/2019 Active atorvastatin (LIPITOR) 80 MG tabletIndications:A SHD (arteriosclerotic heart disease) ([facility]),Hyperlipidemi a with target LDL less than 70 ([facility]) Take 1 tablet by mouth once daily 90 Tablet 3 08/10/2019 Active Additional Information Patient not taking.Reported on 08/28/2019 glucose 4 gram chewable tabletIndications:H ypoglycemia ([facility]) Chew and swallow 4 Tablets by mouth once as needed (Blood sugar less than 70). 30 Tablet 1 10/05/2019 Active insulin degludec 200 UNIT/ML SOPNIndications:Unc ontrolled type 2 diabetes mellitus with hyperglycemia ([facility]) Inject 32 Units subcutaneously daily. 12 mL 10/08/2019 Active amLODIPine (NORVASC) 10 MG tabletIndications:E ssential hypertension ([facility]) Take 1 Tablet by mouth daily. 90 Tablet 3 12/04/2019 Active Continuous Blood Gluc Sensor (FREESTYLE TALAT 14 DAY SENSOR) MISCIndications:Unc ontrolled type 2 diabetes mellitus with hyperglycemia ([facility]) Use as directed. Change every 14 days. 6 Each 4 12/04/2019 Active Continuous Blood Gluc Innersole Maker (FREESTYLE TALAT 2 READER SYSTM) DEVIIndications:Unc ontrolled type 2 diabetes mellitus with hyperglycemia ([facility]) Use to scan blood sugars per golf starter and ranger instructions. 1 Each 12/04/2019 Active metFORMIN (GLUCOPHAGE) 500 MG tablet Take 2 Tablets by mouth two times a day with meals. 360 Tablet 3 01/09/2020 Active busPIRone (BUSPAR) 10 MG tabletIndications:A nxiety ([facility]) Take 3 Tablets by mouth two times [...] mouth two times a day. 120 Tablet 05/09/2020 Active insulin regular (NOVOLIN R) 100 [...] Inject 32 Units subcutaneously daily. 18 mL 06/18/2020 Active insulin aspart (NOVOLOG) 100 UNIT/ML [...] mouth two times a day. 180 Tablet 09/04/2020 Active Active Problems Patient Care Coordination No te Formatting of this note migh t be different from the original. Surgical Physician Assistant: Lesly Rodrigues [facility] Yaritza [phone] Care coordination focus: T2DM, financial resources Living situation: lives with spouse Important notes: SSDI, significant insulin resistance, regularly reaches Medicare Coverage Gap and cannot afford insulin Problem Noted Date Diagnosed Date Non-proliferative diabetic retinopathy 0 Hyponatremia 01/16/2018 Tinea versicolor 07/18/2015 Tobacco use disorder 10/26/2012 Anemia 05/02/2012 Overview (12/15/2016): Anemia, unspecified Microalbuminuria 02/04/2012 [place], old 09/16/2011 History of PTCA 09/16/2011 Overview (12/15/2016): History of PTCA 04/2011 BMS RCA Obesity, Class I, BMI 30-34.9 09/16/2011 Overview (11/26/2015): Body mass index is 31.16 kg/(m^2). Hyperlipidemia with target LDL less than 70 05/26 Overview (12/15/2016): Hyperlipidemia LDL goal < 70 ASHD (arteriosclerotic heart disease) 05/04/2011 Erectile dysfunction 01/22/2011 Overview (11/26/2015): side effect Risperdal Type 2 diabetes mellitus, uncontrolled 1 Overview (12/15/2016): Type II or unspecified type diabetes mellitus without mention of complication, uncontrolled (HRC) Dermatophytosis of body 09/04/2010 Overview (12/15/2016): Tinea Corporis Coronary atherosclerosis 12/22/2009 Overview (12/15/2016): LW Modifier: mod RCA, negative nuclear stress test ; CAD Nonspecific abnormal results of liver function s tudy 12/22/2009 Overview (12/15/2016): Liver Function Tests Abnormal Bipolar I disorder 09/15/2005 Overview (12/15/2016): LW Onset: [id number] ; Bipolar I Dis Resolved Problems Problem Noted Date Diagnosed Date Resolved Date Tobacco abuse 02/24/2016 12/18/2018 ACS (acute coronary syndrome) 10/25/2012 02/16/2017 Mass on back 05/02/2012 10/25/2012 Health halfway, active care coordination 03/22/2012 07/27/2018 Overview (11/26/2015): Surgical Physician Assistant: JOSETTE Yip [phone] Care coordination focus: T2DM, financial resources Living situation: lives with spouse Important notes: SSDI, significant insulin resistance, uses Relion insulin, commonly reaches Medicare Coverage Gap See care plan under Chart Review > Misc Reports > AMB H CARE PLAN REPORT Assessment & Plan (09/01/2017 11:39 AM CDT): Surgical Physician Assistant: Lesly Rodrigues [facility] [phone] Care coordination focus: mental health Living situation: Lives with Important notes: mh case management starting LFTs abnormal 02/02/2012 10/25/2012 S/P angioplasty with stent 05/26/2011 0 10/25/2012 Overview (11/26/2015): Apr 2011 Plantar wart 05/26/2011 10/25/2012 Acute [place] 05/01/2011 02/01/2012 Hypertriglyceridemia 12/11/2010 013 Overview (11/26/2015): >5000 Disorder of lipoid metabolism 12/22/2009 10/25/2012 Overview (12/15/2016): Dyslipidemia Painful respiration 12/22/2009 10/26/19 13 Overview (12/15/2016): Pain Chest Wall Tobacco use disorder 09/29/2002 012 Overview (12/15/2016): quit Apr 29, 2011 ; Tobacco Abuse Immunizations Name Administration Dates Next Due Flu Vac (3+ yrs) 02/01/2012,01/26/2011 Flu Vac Preserv Free (3+yrs) 02/01/2012, 01/22/2011,03/17/2009,2006,03/23/2006,05/19/2005 HepB Adult (Engerix-B, 20+ y rs, 3 dose series) 12/18/2018 Influenza (Fluzone 0.25, 6-35 mos) 03/14/2013 Influenza IIV4 (Quadrivalent ) 0.5mL (44365) 01/07/2020,01/16/2018,02/16/2017,2015,03/27/2015,01/16/2014,03/14/2013 Influenza, Unspecified Formulation 08/23,03/14/2013,03/17/2009,2006,03/23/2006,05/19/2005,03/12/2002 PPSV23 (Pneumovax) 10/08/2009 TB Skin Test (PPD) 06/11/2019,02/05/2016, 016 TDAP (ADACEL) 09/15/2005 TDAP (BOOSTRIX) 11/04/2015 Td 11/12/1998 Social History Tobacco Use Types Packs/Day Years Used Date Smoking Tobacco: Every Day Cigarettes 1 39.8 Started: 05/17/1984 Smokeless Tobacco: Former Quit: 10/25/2012 [...] Comments Blood Pressure 132/88 06/09/2020 4:43 PM FACT CHECKER Pulse 99 06/09/2020 4:43 PM FACT CHECKER Temperature 38.2 C (100.8 F) 05/02/2019 11:31 AM FACT CHECKER Respiratory Rate 16 03/07/2013 2:52 PM FACT CHECKER Oxygen Saturation 97% 10/27/2012 3:52 PM CDT Inhaled Oxygen Concentration - - Weight 88.9 kg (196 lb) 06/09/2020 4:43 PM FACT CHECKER Height 177.8 cm (5' 10) 12/04/2019 10:49 AM CDT Body Mass Index 28.12 12/04/2019 10:49 AM CDT Plan of Treatment Health Maintenance Due Date Last Done Comments Colon Cancer Screening Plan Due 1970 PSA Screening Discussion 1970 Pneumococcal (2 - PCV) 10/08/2010 10/08/2009 [...] 11/10/2021 08/11/2021, , 01/07/2021, Additional history exists COVID-19 Vaccine (3 - 2023- season) 2023 09/16/2020, 08/26/2020 Influenza (#1) 2023 01/07/2020, 12/25, 02/16/2017, Additional history exists Diabetes: Lipid Panel 12/03/2024 12/04/2019 , 08/15/2017, 02/16/2017, Additional history exists DTaP/Tdap/Td (3 - Tdap) 11/03/2025 11/04/19 16, 09/15/2005, 11/12/1998 Hep C Screening (Preventive Services) Completed 03/12/2002 HIV Screening (Preventive Services) Completed 06/25/2020, 03/12/2002 HepA Aged Out No longer eligi ble based on patient's age to complete this topic Hib Aged Out No longer eligi ble based on patient's age to complete this topic IPV (Polio) Aged Out No longer eligi ble based on patient's age to complete this topic Infant RSV Aged Out No longer eligi ble based on patient's age to complete this topic MCV4 Aged Out No longer eligi ble based on patient's age to complete this topic Procedures Procedure Name Priority Date/Time Associated Diagnosis Comments ALBUMIN/CREAT RATIO Routine 12/04/2019 1 0:10 AM CDT Type 2 diabetes mellitus with diabetic polyneuropathy, with long-term current use of insulin (HRC) Uncontrolled type 2 diabetes mellitus with hyperglycemia (HRC) Diabetes mellitus with complication (HRC) Diabetes mellitus with neurological manifestations, uncontrolled (HRC) Diabetic polyneuropathy associated with type 2 diabetes mellitus (HRC) CREATININE / GFR Routine 12/04/2019 10:0 6 AM CDT Type 2 diabetes mellitus with diabetic polyneuropathy, with long-term current use of insulin (HRC) Uncontrolled type 2 diabetes mellitus with hyperglycemia (HRC) Diabetes mellitus with complication (HRC) Diabetes mellitus with neurological manifestations, uncontrolled (HRC) Diabetic polyneuropathy associated with type 2 diabetes mellitus (HRC) LIPID PANEL & DIRECT LDL (IF NEEDED) Routine 12/04/2019 10:06 AM CDT ASHD (arteriosclerotic heart disease) Uncontrolled type 2 diabetes mellitus with hyperglycemia (HRC) HGB A1C, POINT OF CARE Routine 12/04/2019 10:06 AM CDT Type 2 diabetes mellitus with diabetic polyneuropathy, with long-term current use of insulin (HRC) Uncontrolled type 2 diabetes mellitus with hyperglycemia (HRC) Diabetes mellitus with complication (HRC) Diabetes mellitus with neurological manifestations, uncontrolled (HRC) Diabetic polyneuropathy associated with type 2 diabetes mellitus (HRC) HIV ANTIBODY Routine 03/12/2002 12:48 PM FACT CHECKER HEPATITIS C ANTIBODY, WITH REFLEX Routine 03/12/2002 12:48 PM FACT CHECKER from Last 3 Months or Most Recently Relevant to Health Maintenance Results * (ABNORMAL) Microalb/Creat Ratio - in 3 months (12/04/2019 10:10 AM CDT) Albumin, Urine, Random 351.2 mg/L 12/04/2019 3:54 PM CDT [facility] Creatinine, Urine, Random 106 >20 mg/dL 12/04/2019 3:54 PM CDT [facility] Albumin/Creati nine Ratio, Urine, Random 331(H) <30 mg/g 12/04/2019 3:54 PM CDT [facility] Urine Non-blood Collection / Unknown 12/04/2019 10:10 AM CDT 12/04/2019 10:10 AM CDT Gagandeep Hinojosa MD LAB_1 Performing Organization Address City/[facility]/ZIP Co de Phone Number [facility] [address] [place] [address], [facility] [phone] * (ABNORMAL) POCT Glycosylated Hemoglobin (HB A1C) - in 3 months (12/04/2019 10:06 AM CDT) Hemoglobin A1C (Rapid) 11.3(H) <=5.6 % 12/04/2019 10:15 AM CDT [facility] Blood Venipuncture / Unknown 12/04/2019 10:06 AM CDT 12/04/2019 10:06 AM CDT Narrative [facility] - 12/04/2019 10:15 AM CDT This Rapid A1c test is designed for monitoring patients with an established diagnosis of diabetes mellitus. This rapid method is not suitable to establish the initial diagnosis of diabetes mellitus. Performed using Point of Care Instrumentation. Gagandeep Hinojosa MD LAB_1 Performing Organization Address City/[facility]/ZIP Co de Phone Number [facility] [address] [place] [address], [facility] [phone] * (ABNORMAL) Lipid Panel and Direct LDL(If Needed) - in 3 months (12/04/2019 10:06 AM CDT) Cholesterol 116 0 - 199 mg/dL 12/04/2019 4:03 PM T [facility] Triglyceride 137 <=149 mg/dL 12/04/2019 4:03 PM T [facility] HDL Cholesterol 35(L) >=40 mg/dL 0 4:03 PM T [facility] LDL, Calculated 54 <130 mg/dL 0 4:03 PM T [facility] Non HDL Chol, Calculated 81 mg/dL 12/04/2019 4:03 PM T [facility] Cholesterol/HDL Ratio 3.3 12/04/2019 4:03 PM T [facility] Hours Fasting 12 12/04/2019 4:03 PM CDT [facility] Blood Venipuncture / Unknown 12/04/2019 10:06 AM CDT 12/04/2019 10:06 AM CDT Gagandeep Hinojosa MD LAB_1 [facility] [address] [place] [address], [facility] [phone] [facility] [address] [place] [address] [place] [address], [facility] [phone] * Creatinine / GFR - in 3 months (12/04/2019 10:06 AM CDT) Creatinine 0.80 0.73 - 1.18 mg/dL 12/04/2019 4:03 PM T [facility] GFR, Estimated >60 >60 mL/min/1.7 3m2 12/04/2019 4:03 PM T [facility] Blood Venipuncture / Unknown 12/04/2019 10:06 AM CDT 12/04/2019 10:06 AM CDT Gagandeep Hinojosa MD LAB_1 [facility] [address] [place] [address], [facility] [phone] * HIV Antibody (03/12/2002 12:48 PM FACT CHECKER) HIV 1/HIV 2 Non Reac Non Reac HP CONVERSION 03/12/2002 12:4 8 PM FACT CHECKER Antonio Jerez MD LAB_1 HP CONVERSION * Hepatitis C Antibody, with Reflex (03/12/2002 12:48 PM FACT CHECKER) Hepatitis C Antibody Non Reac Non Reac HP CONVERSION 03/12/2002 12:4 8 PM FACT CHECKER Antonio Jerez MD LAB_1 Performing Organization Address City/[facility]/ZIP Co de Phone Number HP CONVERSION from Last 3 Months or Most Recently Relevant to Health Maintenance Advance Directives * Full Code (Latest Code Status on File) Date Activated Date Inactivated Comments 10/25/2012 7:32 PM 10/27/2012 6:54 PM * Full Code Date Activated Date Inactivated Comments 05/14/2011 11:08 AM 05/14/2011 11:30 PM * Full Code Date Activated Date Inactivated Comments 04/30/2011 4:27 AM 05/01/2011 12:21 PM Care Teams Deputy Director Of Finance Relationship Specialty Start Date End Date Needs Pcp, [place] [address] PCP - General 01/24/24 Vane Zarate Psychiatrist Psychiatry 03/22/12 [facility] Psychotherapist 08/04/17 [facility] Maintenance Technician 09/13/17
--- OUTSIDE RECORDS SUMMARY | 2024-03-16 08:38 | XMS_ITS | Encounter Summary ---
Author Organization [facility] Address [address] [place] [address] Care Team Providers Care Railway Equipment Operator Name Role Phone Zhane Stanley DO Primary Care Provider [phone] Encounter Details Date Type Department Care Team (Late st Contact Info) Description 01/04/2024 Orders Only [facility] [address] [place] [address] Mike Edmondson MD [address] [place] [address] Hypo-osmolality and hyponatremia Social History [...] METABOLIC PANEL Routine 01/06/2024 Hypo-osmolality and hyponatremia documented in this encounter Results * (ABNORMAL) Basic metabolic panel (01/06/2024) [...] Gap 9 [facility] Blood (Blood, Venous) 01/06/2024 us Mike Edmondson MD LAB BLOOD ORDERABLES Final Resul t [facility] documented in this encounter Visit Diagnoses Diagnosis Hypo-osmolality and hyponatremia documented in this encounter Care Teams Railway Equipment Operator Relationship Specialty Start Date End Date Zhane Stanley DO [address] [place] [address] PCP - General Family Medicine 07/27/23 documented as of this encounter
--- OUTSIDE RECORDS SUMMARY | 2024-03-16 08:38 | XMS_ITS | Encounter Summary ---
Author Organization [facility] Address [address] [place] [address] Care Team Providers Care Tree Killer Name Role Phone Zhane Stanley DO Primary Care Provider [phone] Encounter Details Date Type Department Care Team (Late st Contact Info) Description 03/06/2024 Documentation Only [facility] [address] [place] [address] Mike Edmondson MD [address] [place] [address] Social History Tobacco Use Types Packs/Day Years [...] on filedocumented in this encounter Care Teams Tree Killer Relationship Specialty Start Date End Date Zhane Stanley DO [facility] [place] [address] PCP - General Family Medicine 07/27/23 documented as of this encounter
== END 2024-03-16 08:33 | disposition home or self-care (01) ==
LOC: WOUND 08:34
PROVIDERS: PCP Family Medicine; Visit Provider Nurse Practitioner Family
DX: E11.621 Type 2 diabetes mellitus with foot ulcer (principal); I70.234 Atherosclerosis of native arteries of right leg with ulceration of heel and midfoot; L97.412 Non-pressure chronic ulcer of right heel and midfoot with fat layer exposed; L97.522 Non-pressure chronic ulcer of other part of left foot with fat layer exposed; Z79.4 Long term (current) use of insulin; Z79.84 Long term (current) use of oral hypoglycemic drugs
CPT/HCPCS: 11042; G0463

== ENCOUNTER 2024-03-19 14:53 | Outpatient (CLI) | payer MEDICARE, MEDICAID, SELFPAY ==
--- OUTSIDE RECORDS SUMMARY | 2024-03-19 14:55 | XMS_ITS | Encounter Summary ---
Author Organization [facility] Address [address] [place] [address] Care Team Providers Care Flower Planter Name Role Phone Zhane Stanley DO Primary Care Provider Encounter Details Date Type Department Care Team (Late st Contact Info) Description 03/06/2024 Documentation Only [facility] [place] [address] [place] [address] Mike Edmondson MD [address] [place] [address] Social History Tobacco Use Types [...] on filedocumented in this encounter Care Teams Flower Planter Relationship Specialty Start Date End Date Zhane Stanley DO [facility] [place] [address] PCP - General Family Medicine 07/27/23 documented as of this encounter
--- OUTSIDE RECORDS SUMMARY | 2024-03-19 14:55 | XMS_ITS | Clinical Summary ---
Author Organization [facility] Address [address] [place] [address] Phone Care Team Providers Care Outside Sales Manager Name Role Phone Zhane Stanley DO Primary Care Provider [phone] Allergies Active Allergy Reactions Criticality Noted Date [...] per PCP. Atherosclerotic heart diseas e of [place] coronary artery without angina pectoris 08/05/2023 Overview (08/05/2023): Status post coronary angiogram April 2011: 99% stenosis in the mid RCA, bare- metal stent deployment to manage. Assessment & Plan (08/08/2023 4:56 PM CDT): No symptoms currently. Chronic kidney disease, stage 2 (mild) Overview (01/09/2024): Baseline creatinine approximately 1-1.2 range for several years. Longstanding, documented albuminuria, first identified November 2010 at 39 mg/g (from 3041-6743, values arranged between 80-150 mg/g). Recent values [...] pay at roughly $50 per day at [employer] website. If he is able to secure [...] 03/06/2024 Documentation Only [facility] [place] [address] [place] [address] Mike Edmondson MD 01/09/2024 1:30 PM CDT Office Visit [facility] [place] [address] Mike Edmondson MD Hypo-osmolality and hyponatremia (Primary Dx); Chronic kidney disease, stage 2 (mild); Hypertensive chronic kidney disease, benign, with chronic kidney disease stage I through stage IV, or unspecified; Type 2 diabetes mellitus with diabetic chronic kidney disease (HCC) 01/04/2024 Orders Only [facility] [place] [address] Mike Edmondson MD Hypo-osmolality and hyponatremia 12/22/2023 Telephone [facility] [address] [facility] [address] [place] [address] Brisa Paulino from Last 3 Months Immunizations [...] Months Insurance MEDICARE [place]ICAID [place] Care Teams Outside Sales Manager Relationship Specialty Start Date End Date Zhane Stanley DO [address] [place] [address] PCP - General Family Medicine 07/27/23
--- OUTSIDE RECORDS SUMMARY | 2024-03-19 14:55 | XMS_ITS | Encounter Summary ---
Author Organization [facility] Address [address] [place] [address] Care Team Providers Care Accounts Receivable Manager Name Role Phone Zhane Stanley DO Primary Care Provider [phone] Reason for Visit * Reason Comments Follow-up Encounter Details Date Type Department Care Team (Latest Contact Info) Description 01/09/2024 1:30 PM CDT Office Visit [facility] [address] [place] [place] [address] Mike Edmondson MD [address] [place] [address] Hypo-osmolality and hyponatremia (Primary Dx); [...] Timur Krishnamurthy Date of : 1970 Chart: [id number] PCP: Zhane Stanley DO Date of Service: [...] identified November 2010 at 39 mg/g (from 9440-1828, values arranged between 80-150 mg/g). Recent values [...] kidney disease (HCC) Atherosclerotic heart disease of [place] coronary artery without angina pectoris Chronic kidney [...] (HCC) documented in this encounter Care Teams Accounts Receivable Manager Relationship Specialty Start Date End Date Zhane Stanley DO [address] [place] [address] PCP - General Family Medicine 07/27/23 documented as of this encounter
--- OUTSIDE RECORDS SUMMARY | 2024-03-19 14:56 | XMS_ITS | Encounter Summary ---
Author Organization [facility] Address [address] [place] [address] Care Team Providers Care Application Development Liaison Name Role Phone Zhane Stanley DO Primary Care Provider [phone] Encounter Details Date Type Department Care Team (Late st Contact Info) Description 10/08/2023 Orders Only [facility] [address] [place] [address] Mike Edmondson MD [address] [place] [address] Hypo-osmolality and hyponatremia Social History [...] hyponatremia documented in this encounter Care Teams Application Development Liaison Relationship Specialty Start Date End Date Zhane Stanley DO [address] [place] [address] PCP - General Family Medicine 07/27/23 documented as of this encounter
--- OUTSIDE RECORDS SUMMARY | 2024-03-19 14:56 | XMS_ITS | Clinical Summary ---
Author Organization [id number] [facility] Address [place], [place] [address] Care Team Providers Care Auto Technician Name Role Phone Glenys Alcantar MD Unavailable [phone] [facility] Care, [facility] Unavailable [phone] Zhane Stanley DO Primary Care Provider [phone] Samantha Grayson PharmD Unavailable [phone] Allergies Active Allergy Reactions Criticality Noted Date [...] Tablet 3 07/29/19 24 Active Insulin Safety [place], Disp, 30 gauge x ndications:Ty pe 2 [...] Level 3) soln As directed. Active menthol (Pella Cough Drops) 3.2 mg lozg Dissolve 1 [...] 2 02/03/20 24 024 Discontinued(*M edication adjustment) melatonin 5 mg tab tablet Take 5 [...] identified November 2010 at 39 mg/g (from 2088-2580, values arranged between 80-150 mg/g). 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 3 Bipolar I disorder with mood-congruent psychotic features [...] Encounters Date Type Department Care Team Description 03/19/2024 9:00 AM ASSEMBLER TUBING Ancillary Procedure [facility] [address] [place] [address] Arrived 03/19/2024 Travel 03/15/2024 [place]phone [facility] [address] [place] [address] Jorge A Morgan MD Referral 03/12/2024 Orders Only [facility] [address] [place] [address] Gagandeep Manuel NP <No scans attached> 03/09/2024 11:00 AM ASSEMBLER TUBING Office Visit [facility] [address] [place] [address] Zhane Stanley, Derm Problem (Cellulitis follow up ) 03/09/2024 9:30 AM ASSEMBLER TUBING Office Visit [facility] [address] [place] [address] Johan Ye MD Medication Management (medications reviewed yesterday 03/08/24 at appointment) 03/08/2024 10:50 AM ASSEMBLER TUBING Office Visit [address] [address] Hardeep Reardon MD Foot Pain/problem (Cellulitis on both feet) 03/08/2024 Travel 03/07/[address] [address] Zhane Stanley, DO Refill Request (Metformin, Furosemide, Gabapentin, gavilax) 03/05/[address] [address] Zhane Stanley Анна, DO Refill Request (GAVILAX) 03/05/2024 Patient Outreach [address] [address] Jacqueline Oliver RN Primary RN Care Management; Hospital F/U (LACE 23/) 03/01/2024 1:04 PM ASSEMBLER TUBING - 03/03/2024 11:55 AM ASSEMBLER TUBING Hospital Encounter [facility] [address] [place] [address] Marco Antonio Goodwin DO Cellulitis in diabetic foot (HC) (Primary Dx) Discharge Disposition: Home Self Care 03/01/2024 7:00 AM ASSEMBLER TUBING Office Visit [address] [address] Anabel Sanchez MD Foot Problem (Sores on [...] X1 week.) 03/01/2024 Travel 02/27/2024 Nurse Triage [address] [place] [address] Shaqra, Zhane Анна, DO Foot Pain/problem (L heel ) 02/15/2024 Refill [facility] [address] [place] [address] Shaqra, Zhane Анна, DO NICOTINE JANNA 02/13/2024 1:00 PM CDT Office Visit [address] [address] Hardeep Reardon MD Diarrhea (Having liquid bowel movements while sleeping x4. Unaware of needing to use the restroom. ) 02/13/[address] [address] Ky Love MD Chart Review 02/13/2024 Travel 02/07/[address] [address] Shaqra, Zhane Анна, DO Refill Request (Jardiance) 02/03/2024 9:30 AM CDT Office Visit [address] [address] Johan Ye MD Follow Up; Medication Management (Discuss medications) 02/03/[address] [address] Johan Ye MD Refill Request; PROPRANOLOL 02/03/2024 Travel 01/16/[address] [address] Shaqra, Zhane Анна, DO Refill Request (Nicotine ) 01/09/[address] [address] Johan Ye MD Results 01/06/2024 3:30 PM CDT Orders Only [facility] [address] [place] [address] Lab, [facility] 01/06/2024 9:00 AM CDT Office Visit [address] [place] [address] Johan Ye MD Follow Up; Medication Management [...] Comments Blood Pressure 106/67 03/09/2024 10:53 AM ASSEMBLER TUBING Pulse 68 03/09/2024 10:53 AM ASSEMBLER TUBING Temperature 37.2 C (99 F) 03/03/2024 7:48 AM ASSEMBLER TUBING Respiratory Rate 20 03/03/2024 7:48 AM ASSEMBLER TUBING Oxygen Saturation 99% 03/09/2024 10: 53 AM ASSEMBLER TUBING Inhaled Oxygen Concentration - - Weight 93.4 kg (205 lb 12.8 oz) 024 10:53 AM ASSEMBLER TUBING Height 177.8 cm (5' 10) 11/14/2023 9:23 AM CDT Body Mass Index 29.53 11/14/2023 9:23 AM CDT Plan of Treatment Upcoming Encounters Date Type Department Care Team (Late st Contact Info) Description 03/27/2024 1:00 PM ASSEMBLER TUBING Office Visit [facility] [address] [place] [address] Johan Ye MD [address] [place] [address] 05/01/2024 10:30 AM ASSEMBLER TUBING Office Visit [facility] [address] [address] Zi Chen DPM [address] [place] [address] 05/14/2024 11:00 AM ASSEMBLER TUBING Office Visit [facility] [address] [place] [address] Johan Ye MD [address] [place] [address] 06/05/2024 12:30 PM ASSEMBLER TUBING Office Visit [facility] [address] [place] [address] Johan Ye MD [address] [place] [address] Health Maintenance Due Date Last Done Comments Low Dose CT (for lung CA) ag e 50-80 02/15/2024 02/14/2023, 12/21/2021, 05/07/2016 BMI (ht and wt on same day) for age 18+ 11/13/2024 11/14/2023, 09/12/2023, 11/22/2022, Additional history exists Depression screening for age 12+ 03/12/2025 03/12/2024, 03/09/2024, 03/09/2024, Additional history exists Fecal testing sDNA-FIT (Lamar guard) for age 45-75 09/07/2025 09/07/2022 Tetanus [...] IRON BINDING CAP Routine 03/08/2024 12:02 PM ASSEMBLER TUBING Anemia of unknown etiology HEMOGLOBIN Routine 03/08/2024 12:02 PM ASSEMBLER TUBING Anemia of unknown etiology BASIC METABOLIC PANEL Routine 03/08/2024 12:02 PM ASSEMBLER TUBING Hyperkalemia GLUCOSE METER Routine 03/03/2024 11:03 AM ASSEMBLER TUBING GLUCOSE METER Routine 03/03/2024 7:48 AM ASSEMBLER TUBING C-REACTIVE PROTEIN Early AM 03/03/2024 6: 34 AM ASSEMBLER TUBING SODIUM Early AM 03/03/2024 6:34 AM ASSEMBLER TUBING HEMOGLOBIN Early AM 03/03/2024 6:34 AM ASSEMBLER TUBING CREATININE Early AM 03/03/2024 6:34 AM ASSEMBLER TUBING POTASSIUM Early AM 03/03/2024 6:34 AM ASSEMBLER TUBING MAGNESIUM Early AM 03/03/2024 6:34 AM ASSEMBLER TUBING GLUCOSE METER Routine 03/02/2024 8:55 PM ASSEMBLER TUBING GLUCOSE METER Routine 03/02/2024 6:33 PM ASSEMBLER TUBING GLUCOSE METER Routine 03/02/2024 11:37 AM ASSEMBLER TUBING GLUCOSE METER Routine 03/02/2024 8:[address] ANGIO LOWER EXTREMITY BILAT RUNOFF Early AM 03/02/2024 8:29 AM ASSEMBLER TUBING C-REACTIVE PROTEIN [place] 03/02/2024 5: 49 AM ASSEMBLER TUBING HEMOGLOBIN Early AM 03/02/2024 5:49 AM ASSEMBLER TUBING WHITE BLOOD COUNT Early AM 03/02/2024 5:4 9 AM ASSEMBLER TUBING MAGNESIUM Early AM 03/02/2024 5:49 AM ASSEMBLER TUBING CREATININE Early AM 03/02/2024 5:49 AM ASSEMBLER TUBING POTASSIUM Early AM 03/02/2024 5:49 AM ASSEMBLER TUBING SODIUM Early AM 03/02/2024 5:49 AM ASSEMBLER TUBING GLUCOSE METER Routine 03/01/2024 9:17 PM ASSEMBLER TUBING GLUCOSE METER Routine 03/01/2024 6:00 PM ASSEMBLER TUBING EKG 12 LEAD [place] 03/01/2024 3:32 PM ASSEMBLER TUBING MRSA/SA PCR Today 03/01/2024 2:52 PM ASSEMBLER TUBING MAGNESIUM [place] 03/01/2024 2:11 PM ASSEMBLER TUBING CBC WITH AUTO DIFFERENTIAL [place] 03/01/2024 2:11 PM ASSEMBLER TUBING LACTATE VENOUS [place] 03/01/2024 2:11 PM ASSEMBLER TUBING PROCALCITONIN [place] 03/01/2024 2:11 PM ASSEMBLER TUBING SEDIMENTATION RATE [place] 03/01/2024 2: 11 PM ASSEMBLER TUBING C-REACTIVE PROTEIN [place] 03/01/2024 2: 11 PM ASSEMBLER TUBING COMP METABOLIC PANEL [place] 03/01/2024 2:11 PM ASSEMBLER TUBING CBC WITH AUTO DIFFERENTIAL [place] 03/01/2024 2:11 PM ASSEMBLER TUBING XR FOOT 3 VIEWS LEFT STAT 03/01/2024 2:03 PM ASSEMBLER TUBING XR FOOT 3 VIEWS RIGHT STAT 03/01/2024 2:01 PM ASSEMBLER TUBING BASIC METABOLIC PANEL Routine 01/06/2024 3:44 PM [...] ANTI HIV 1/2 [place]TT[place] 06/25/2020 7:57 AM ASSEMBLER TUBING ANTI HCV [place] 06/25/2020 7:57 AM ASSEMBLER TUBING from Last 3 Months or Most Recently Relevant to Health Maintenance Results * IRON PLUS IRON BINDING CAP (03/08/2024 12:02 PM ASSEMBLER TUBING) IRON, TOTAL 75 50 - 180 mcg/dL [facility] IRON BINDING CAPACITY 271 250 - 425 mcg/dL (calc) [facility] % SATURATION 28 20 - 48 % (calc) [facility] Blood BLOOD SPECIMEN / Unknown 03/08/2024 12:02 PM ASSEMBLER TUBING 03/08/2024 12:02 PM ASSEMBLER TUBING Hardeep Reardon MD QUALITY ASSURANCE COACH RY [facility] [address] [place] [address], [facility] [address] [place] [address] * (ABNORMAL) HEMOGLOBIN (03/08/2024 12:02 PM ASSEMBLER TUBING) Only the most recent of3 resultswithin the time period is included. HEMOGLOBIN 12.2(L) 13.2 - 17.1 g/dL [facility] Blood BLOOD SPECIMEN / Unknown 03/08/2024 12:02 PM ASSEMBLER TUBING 03/08/2024 12:02 PM ASSEMBLER TUBING Hardeep Reardon MD HEMATOL OGY [facility] [address] [place] [address], [place] [phone] [facility] [address] [place] [address] * (ABNORMAL) BASIC METABOLIC PANEL (03/08/2024 12:02 PM ASSEMBLER TUBING) Only the most recent of2 resultswithin the time period is included. GLUCOSE 148(H) 65 - 99 mg/dL [facility] Comment: Fasting reference interval For someone without known diabetes, a glucose value >125 mg/dL indicates that they may have diabetes and this should be confirmed with a follow-up test. UREA NITROGEN (BUN) 23 7 - 25 mg/dL [facility] CREATININE 1.15 0.70 - 1.30 mg/dL [facility] EGFR 76 > OR = 60 mL/min/1. 73m2 [facility] BUN/CREATININE RATIO SEE NOTE: 6 [...] CALCIUM 8.9 8.6 - 10.3 mg/dL [facility] Blood BLOOD SPECIMEN / Unknown 03/08/2024 12:02 PM ASSEMBLER TUBING 03/08/2024 12:02 PM ASSEMBLER TUBING Hardeep Reardon MD QUALITY ASSURANCE COACH RY [facility] [address] [place] [address], [place] [phone] [facility] [address] [place] [address] * (ABNORMAL) GLUCOSE METER (03/03/2024 11:03 AM ASSEMBLER TUBING) Only the most recent of8 resultswithin the time period is included. GLUCOSE METER 251(H) 65 - 100 mg/dL 03/03/2024 11:08 AM ASSEMBLER TUBING [facility] Blood BLOOD SPECIMEN / Unknown 03/03/2024 11:03 AM ASSEMBLER TUBING 03/03/2024 11:08 AM ASSEMBLER TUBING Marco Antoniobelén Arriolamarian Goodwin DO CHEMISTRY Performing Organization Address [facility] Co de Phone Number [facility] [address] [place] [address] * (ABNORMAL) SODIUM (03/03/2024 6:34 AM ASSEMBLER TUBING) Only the most recent of2 resultswithin the time period is included. SODIUM 134(L) 136 - 145 mmol/L 03/03/2024 7:32 AM ASSEMBLER TUBING [facility] Blood BLOOD SPECIMEN / Unknown Venipuncture / Unknown 03/03/2024 6:34 AM ASSEMBLER TUBING 03/03/2024 6:52 AM ASSEMBLER TUBING Marco Antonio Goodwin DO CHEMISTRY Performing Organization Address [facility] de Phone Number [facility] [address] [place] [address] * (ABNORMAL) POTASSIUM (03/03/2024 6:34 AM ASSEMBLER TUBING) Only the most recent of2 resultswithin the time period is included. POTASSIUM 5.2(H) 3.5 - 5.1 mmol/L 03/03/2024 7:32 AM ASSEMBLER TUBING [facility] Blood BLOOD SPECIMEN / Unknown Venipuncture / Unknown 03/03/2024 6:34 AM ASSEMBLER TUBING 03/03/2024 6:52 AM ASSEMBLER TUBING Freya Roberts RN CHEMISTRY Performing Organization Address [facility]/ZIP Co de Phone Number [facility] [address] [place] [address] * (ABNORMAL) CREATININE (03/03/2024 6:34 AM ASSEMBLER TUBING) Only the most recent of2 resultswithin the time period is included. eGFR 79(L) >90 mL/min/1.7 3m2 03/03/2024 7:32 AM ASSEMBLER TUBING [facility] Comment:As of 2021, eG FR is calculated by the CKD-EPI creatinine equation without race adjustment. eGFR can be influenced by muscle mass, exercise, and diet. The reported eGFR is an estimation only and is only applicable if the renal function is stable. CREATININE 1.11 0.70 - 1.20 mg/dL 03/03/2024 7:32 AM [facility] Blood BLOOD SPECIMEN / Unknown Venipuncture / Unknown 03/03/2024 6:34 AM ASSEMBLER TUBING 03/03/2024 6:52 AM ASSEMBLER TUBING Marco Antonio [employer] CHEMISTRY Performing Organization Address City/[facility] Co de Phone Number [facility] [address] [place] [address] * (ABNORMAL) C-REACTIVE PROTEIN (03/03/2024 6:34 AM ASSEMBLER TUBING) Only the most recent of3 resultswithin the time period is included. C-REACTIVE PROTEIN 4.6(H) <0.5 mg/dL 03/03/2024 7:32 AM ASSEMBLER TUBING [facility] Blood BLOOD SPECIMEN / Unknown Venipuncture / Unknown 03/03/2024 6:34 AM ASSEMBLER TUBING 03/03/2024 6:52 AM ASSEMBLER TUBING Marco Antonio [facility] [employer] AS CHEMISTRY [facility] [address] [place] [address] * MAGNESIUM (03/03/2024 6:34 AM ASSEMBLER TUBING) Only the most recent of3 resultswithin the time period is included. MAGNESIUM 2.4 1.6 - 2.6 mg/dL 03/03/2024 7:32 AM ASSEMBLER TUBING [facility] Blood BLOOD SPECIMEN / Unknown Venipuncture / Unknown 03/03/2024 6:34 AM ASSEMBLER TUBING 03/03/2024 6:52 AM ASSEMBLER TUBING Freya Roberts RN CHEMISTRY [facility] [address] [place] [address] * CT ANGIO LOWER EXTREMITY BILAT RUNOFF (03/02/2024 8:29 AM ASSEMBLER TUBING) Anatomical Region Laterality Modality LEGS Computed Tomogra phy 03/02/2024 10:0 6 AM ASSEMBLER TUBING Narrative 03/02/2024 10:06 AM ASSEMBLER TUBING For Patients: As a result of the [...] stenosis in the superficial femoral artery. Focal dxlf-mh-pxylvlbp stenosis in the distal popliteal artery. Tibioperoneal arteries: Patent, with three-vessel runoff to the ankle. Left lower extremity: Common/external iliac arteries: Left common iliac artery measures 9 mm. Vdpa-ky-yidhieww mixed atherosclerotic disease in the common iliac [...] 03/02/2024 10:06:59 (Electronically Signed) Procedure Note Yamil Shah, - 03/02/2024 For Patients: As a result of the 21st Century Cures Act, medical imagingexams and procedure [...] multifocalstenosis in the superficial femoral artery. Focal bheh-tu-jwcsydlypvuxkclc in the distal popliteal artery. Tibioperoneal arteries: Patent, with three-vessel runoff to the ankle. Left lower extremity: Common/external iliac arteries: Left common iliac artery measures 9 mm.Mtkg-hg-suhxdlnd mixed atherosclerotic disease in the common iliac [...] * WHITE BLOOD COUNT (03/02/2024 5:49 AM ASSEMBLER TUBING) Pathologist [facility] WHITE BLOOD COUNT 6.1 4.5 - 11.0 thou/cu mm 03/02/2024 6:38 AM ASSEMBLER TUBING [facility] Blood BLOOD SPECIMEN / Unknown Venipuncture / Unknown 03/02/2024 5:49 AM ASSEMBLER TUBING 03/02/2024 6:34 AM ASSEMBLER TUBING Marco Antonio Goodwin DO HEMATOLOGY Performing Organization Address City/[facility] Co de Phone Number [facility] [address] [place] [address] * 12 Lead EKG (03/01/2024 3:32 PM ASSEMBLER TUBING) Pathologist [facility] Interpretation Normal sinus rhythm Minimal voltage criteria [...] NOW QTc 428 ms BEYOND NOW P [place] 37 degrees BEYOND NOW R [place] 15 degrees BEYOND NOW T [place] 33 degrees BEYOND NOW 03/01/2024 3:32 PM ASSEMBLER TUBING 03/01/2024 6:37 PM ASSEMBLER TUBING Marco Antonio Goodwin DO EKG ORD Performing Organization Address City/[facility]/ZIP Co de Phone Number [facility] [place], [place] * MRSA/SA PCR (03/01/2024 2:52 PM ASSEMBLER TUBING) Pathologist [facility] MRSA DNA PCR Negative Negative 03/01/2024 11:27 PM ASSEMBLER TUBING [facility] STAPHYLOCOCCUS AUREUS PCR Negative Negative 03/01/2024 11:27 PM ASSEMBLER TUBING [facility] Other SPECIMEN FROM INTERNAL NOSE / Unknown Non-Blood / Unknown 03/01/2024 2:52 PM ASSEMBLER TUBING 03/01/2024 3:07 PM ASSEMBLER TUBING Narrative [facility] - 03/01/2024 11:27 PM ASSEMBLER TUBING Test result does not preclude MRSA or SA nasal colonization. Marco Antonio Santa Goodwin DO MICROBIOLOGY [facility] [address] [place] [address], * (ABNORMAL) SEDIMENTATION RATE (03/01/2024 2:11 PM ASSEMBLER TUBING) Pathologist [facility] SEDIMENTATION RATE 46(H) <20 mm/hr 2023 2:34 PM ASSEMBLER TUBING [facility] Blood BLOOD SPECIMEN / Unknown Venipuncture / Unknown 03/01/2024 2:11 PM ASSEMBLER TUBING 03/01/2024 2:14 PM ASSEMBLER TUBING Marco Antonio Goodwin DO HEMATOLOGY [facility] [address] [place] [address] * (ABNORMAL) CBC WITH AUTO DIFFERENTIAL (03/01/2024 2:11 PM ASSEMBLER TUBING) Pathologist [facility] WHITE BLOOD COUNT 7.4 4.5 - 11.0 thou/cu mm 03/01/2024 2:21 PM [facility] RED BLOOD COUNT 3.84(L) 4.30 - 5.90 mil/cu mm 03/01/2024 2:21 PM [facility] HEMOGLOBIN 11.5(L) 13.5 - 17.5 g/dL 03/01/2024 2:21 PM [facility] HEMATOCRIT 33.7(L) 37.0 - 53.0 % 03/01/2024 2:21 PM [facility] MCV 88 80 - 100 fL 03/01/2024 2:21 PM [facility] MCH 29.9 26.0 - 34.0 pg 03/01/2024 2:21 PM [facility] MCHC 34.1 32.0 - 36.0 g/dL 03/01/2024 2:21 PM [facility] RDW 12.6 11.5 - 15.5 % 03/01/2024 2:21 PM [facility] PLATELET COUNT 153 140 - 440 thou/cu mm 03/01/2024 2:21 PM [facility] MPV 8.8 6.5 - 11.0 fL 03/01/2024 2:21 PM [facility] % NEUT 61.2 % 03/01/2024 2:21 PM [facility] % LYMPH 18.6 % 03/01/2024 2:21 PM [facility] % MONO 19.5 % 03/01/2024 2:21 PM [facility] % EOS 0.3 % 03/01/2024 2:21 PM [facility] % BASO 0.4 % 03/01/2024 2:21 PM [facility] ABSOLUTE NEUTROPHILS 4.5 1.7 - 7.0 thou/cu mm 03/01/2024 2:21 PM [facility] ABSOLUTE LYMPHOCYTES 1.4 0.9 - 2.9 thou/cu mm 03/01/2024 2:21 PM [facility] ABSOLUTE MONOCYTES 1.4(H) <0.9 thou/cu mm 03/01/2024 2:21 PM [facility] ABSOLUTE EOSINOPHILS 0.0 <0.5 thou/cu mm 03/01/2024 2:21 PM [facility] ABSOLUTE BASOPHILS 0.0 <0.3 thou/cu mm 03/01/2024 2:21 PM [facility] Blood BLOOD SPECIMEN / Unknown Venipuncture / Unknown 03/01/2024 2:11 PM ASSEMBLER TUBING 03/01/2024 2:14 PM [facility] Marco Antonio Goodwin DO HEMATOLOGY [facility] [address] [place] [address] * LACTATE VENOUS (03/01/2024 2:11 PM ASSEMBLER TUBING) LACTATE,VENOUS 1.7 0.5 - 2.0 mmol/L 03/01/2024 2:35 PM ASSEMBLER TUBING [facility] Blood BLOOD SPECIMEN / Unknown Venipuncture / Unknown 03/01/2024 2:11 PM ASSEMBLER TUBING 03/01/2024 2:14 PM ASSEMBLER TUBING Marco Antonio Pratt Buddy SAL CHEMISTRY [facility] [address] [place] [address] * PROCALCITONIN (03/01/2024 2:11 PM ASSEMBLER TUBING) [facility] PROCALCITONIN 0.08 ng/ml 03/01/2024 2:54 PM ASSEMBLER TUBING [facility] Blood BLOOD SPECIMEN / Unknown Venipuncture / Unknown 03/01/2024 2:11 PM ASSEMBLER TUBING 03/01/2024 2:14 PM ASSEMBLER TUBING Narrative [facility] - 03/01/2024 2:54 PM ASSEMBLER TUBING Procalcitonin for initial assessment of Lower Respiratory [...] obtained. Marco Antonio Goodwin DO SEND OUTS [facility] [address] [place] [address] * (ABNORMAL) COMP METABOLIC PANEL (03/01/2024 2:11 PM [facility]) SODIUM 130(L) 136 - 145 mmol/L 03/01/2024 2:38 PM [facility] POTASSIUM 4.8 3.5 - 5.1 mmol/L 03/01/2024 2:38 PM [facility] CHLORIDE 92(L) 98 - 107 mmol/L 03/01/2024 2:38 PM [facility] CO2,TOTAL 25 22 - 29 mmol/L 03/01/2024 2:38 PM [facility] ANION GAP 13 5 - 18 03/01/2024 2:38 PM [facility] GLUCOSE 118(H) 70 - 99 mg/dL 03/01/2024 2:38 PM [facility] CALCIUM 9.0 8.8 - 10.4 mg/dL 03/01/2024 2:38 PM [facility] Comment: Reference ranges for this test were updated on 02/28/2024 to reflect our healthy population more accurately. Reference range changes are not retroactively applied to results, but previous results using the same methodology can be interpreted in the context of the new reference range. BUN 25(H) 6 - 20 mg/dL 03/01/2024 2:38 PM [facility] CREATININE 1.14 0.70 - 1.20 mg/dL 03/01/2024 2:38 PM [facility] BUN/CREAT RATIO 22(H) 10 - 20 2:38 PM [facility] eGFR 76(L) >90 mL/min/1. 73m2 03/01/2024 2:38 PM [facility] Comment:As of 2021, eG FR is calculated by the CKD-EPI creatinine equation without race adjustment. eGFR can be influenced by muscle mass, exercise, and diet. The reported eGFR is an estimation only and is only applicable if the renal function is stable. ALBUMIN 3.5(L) 4.0 - 4.9 g/dL 03/01/2024 2:38 PM [facility] PROTEIN,TOTAL 6.5 6.0 - 8.0 g/dL 03/01/2024 2:38 PM [facility] BILIRUBIN,TOTAL 0.3 0.0 - 1.2 mg/dL 03/01/2024 2:38 PM [facility] ALK PHOSPHATASE 53 40 - 129 IU/L 03/01/2024 2:38 PM [facility] ALT (SGPT) 9(L) 10 - 50 IU/L 03/01/2024 2:38 PM [facility] AST (SGOT) 22 10 - 50 IU/L 03/01/2024 2:38 PM [facility] Blood BLOOD SPECIMEN / Unknown Venipuncture / Unknown 03/01/2024 2:11 PM [facility] TUBING 03/01/2024 2:14 PM ASSEMBLER TUBING Marco Antonio Goodwin DO CHEMISTRY [facility] [address] [place] [address] * XR FOOT 3 VIEWS LEFT (03/01/2024 2:03 PM ASSEMBLER TUBING) Anatomical Region Laterality Modality FEET, FOOT L Digital Radiogra phy 03/01/2024 2:13 PM ASSEMBLER TUBING Narrative 03/01/2024 2:13 PM ASSEMBLER TUBING For Patients: As a result of the [...] FOOT 3 VIEWS RIGHT (03/01/2024 2:01 PM ASSEMBLER TUBING) Anatomical Region Laterality Modality FEET, FOOT R Digital Radiogra phy 03/01/2024 2:11 PM ASSEMBLER TUBING Narrative 03/01/2024 2:11 PM ASSEMBLER TUBING For Patients: As a result of the [...] 03/01/2024 2:11:17 PM (Electronically Signed) Marco Antonio Goodwin DO GENERAL IMAGING * TSH WITH REFLEX (01/06/2024 9:51 AM CDT) TSH 2.48 0.27 - 4.20 uIU/mL 01/06/2024 6:34 PM CDT [facility] [employer] [facility] Blood BLOOD SPECIMEN / Unknown Venipuncture / Unknown 01/06/2024 9:51 AM CDT 01/06/2024 9:51 AM CDT Narrative [facility] - 01/06/2024 6:34 PM CDT In Adults, TSH values between 5.00 and 10.00 uIU/ml do not necessarily indicate the presence of Hypothyroidism. Correlation with clinical findings such as presence of goiter and/or Thyroperoxidase (TPO) Antibody may be helpful. For more information please refer to KIMMY 2004; 291: 228-238. Johan Ye MD CHEMISTRY [facility] [address] [place] [address], * (ABNORMAL) LIPID PANEL W REFLEX MEASURED LDL (11/14/2023 9:06 AM CDT) CHOLESTEROL,TOTAL 117 100 - 199 mg/dL 11/14/2023 6:57 PM CDT [facility] Comment: Cholesterol, Total Reference Ranges Desirable <200 mg/dL Borderline 200-239 mg/dL High >=240 mg/dL TRIGLYCERIDES 156(H) <150 mg/dL 11/14/2023 6:57 PM CDT [facility] HDL CHOLESTEROL 44 >40 mg/dL 6:57 PM CDT [facility] NON-HDL CHOLESTEROL 73 <145 mg/dl 11/14/2023 6:57 PM CDT [facility] CHOL/HDL RATIO 2.66 <4.50 11/14/2023 6:57 PM CDT [facility] LDL CHOLESTEROL 42 <=130 mg/dL 11/14/2023 6:57 PM CDT [facility] VLDL CHOLESTEROL 31(H) <=30 mg/dL 11/14/2023 6:57 PM CDT [facility] PROVIDER ORDERED STATUS RANDOM 11/14/2023 6:57 PM CDT [facility] Blood BLOOD SPECIMEN / Unknown Venipuncture / Unknown 11/14/2023 9:06 AM CDT 11/14/2023 9:06 AM CDT Zhane Stanley DO CHEMISTRY [facility] [address] [place] [address], [place] * CT CHEST SCREENING LOW DOSE WO [...] STL-IMP Negative Negative 09/12/2022 4:39 PM CDT [facility] (CLIA #:[id number]) Comment: NEGATIVE TEST RESULT. A negative Cologuard [...] (Oscar Clifford al, N Engl J Med 2014;370(14):5880-0655) The normal value (reference range) for this assay is negative. COLOGUARD RE-SCREENING RECOMMENDATION: Periodic colorectal cancer screening is an important part of preventive healthcare for asymptomatic individuals at average risk for colorectal cancer. Following a negative Cologuard result, the [place] [employer] Society and U.S. Multi-Society Task Force screening guidelines recommend a Cologuard re-screening interval of 3 years. References: [place] [employer] Guideline for Colorectal Cancer Screening: https://www.cancer.org/cancer/wkgco-eozedd-nlbjjn/ecwiwygxr-mgnvcbstn-mgomcpr/ac s-rec ommendations.html.; Rob DK, Dory CR, Juan Luis JuárezK, Colorectal Cancer Screening: Recommendations for Physicians and Patients from the U.S. Multi-Society Task Force on Colorectal Cancer Screening , Am J Gastroenterology 2017; 112:9484-2950. TEST DESCRIPTION: Composite algorithmic analysis of stool [...] screened with both Cologuard and colonoscopy. (Oscar Rodriges, N Engl J Med 2014;370(14):5919-4729.) Cologuard may produce a false negative or false positive result (no colorectal cancer or precancerous polyp present at colonoscopy follow up). A negative Cologuard test result does not guarantee the absence of CRC or advanced adenoma (pre-cancer). The current Cologuard screening interval is every 3 years. ([place] [employer] Society and U.S. Multi-Society Task Force). Cologuard performance data in a 10,000 patient pivotal study using colonoscopy as the reference method can be accessed at the following location: www.Tedcas/results. Additional description of the Cologuard test process, warnings and precautions can be found at www.cologuard.com. Stool specimen (specimen) (Rectum) 09/07/2022 10:30 AM CDT 09/08/2022 2:42 PM CDT Zhanekenny Stanley DO URINE [facility] (CLIA #:[id number]) [place] [address], * ANTI HCV (06/25/2020 7:57 AM ASSEMBLER TUBING) Pathologist [facility] [place] HEPATITIS C ANTIBODY Non-React adithya Non-React adithya 06/25/2020 3:43 PM ASSEMBLER TUBING [facility] [employer] Comment:Antibodies to HCV no t detected; does not exclude the possibility of exposure to HCV. Blood BLOOD SPECIMEN / Unknown Butterfly / Unknown 06/25/2020 7:57 AM ASSEMBLER TUBING 06/25/2020 8:25 AM ASSEMBLER TUBING Brandan Woodard MD [facility] [address] [place] [address], [place] * ANTI HIV 1/2 (06/25/2020 7:57 AM ASSEMBLER TUBING) Pathologist [facility] [place] HIV-1/HIV-2 ANTIBODY Non-Reacti ve Non-Reacti ve 06/25/2020 3:44 PM ASSEMBLER TUBING [facility] Comment:HIV-1 p24 and HIV-1/ HIV-2 Ab not detected. Blood BLOOD SPECIMEN / Unknown Butterfly / Unknown 06/25/2020 7:57 AM ASSEMBLER TUBING 06/25/2020 8:25 AM ASSEMBLER TUBING Brandan Woodard MD SEND OUTS [facility] [address] [place] [address], from Last 3 Months or Most Recently Relevant to Health Maintenance Advance Directives Documents on File Type Date Recorded Patient Bow String Maker Expl anation POLST 08/20/2020 5:18 PM POLST [...] Comments Code Status Discussion: Discussed Care Teams Auto Technician Relationship Specialty Start Date End Date Zhane Stanley DO [address] [place] [address] PCP - General Internal Medicine 09/08/20 Glenys Alcantar MD [address] [place] [address] Endocrinology 05/03/17 [facility] [address] [place] [address] 05/21/20 Samantha Grayson, ColinD [address] [facility] [place] [address] Pharmacist Medication Management Pharmacology 10/21/20
--- OUTSIDE RECORDS SUMMARY | 2024-03-19 14:56 | XMS_ITS | Encounter Summary ---
Author Organization [facility] Address [address] [place] [address] Care Team Providers Care Railroad Wheels And Axle Inspector Name Role Phone Zhane Stanley DO Primary Care Provider [phone] Encounter Details Date Type Department Care Team (Late st Contact Info) Description 01/04/2024 Orders Only [facility] [address] [place] [address] Mike Edmondson MD [address] [place] [address] Hypo-osmolality and hyponatremia Social History [...] hyponatremia documented in this encounter Care Teams Railroad Wheels And Axle Inspector Relationship Specialty Start Date End Date Zhane Stanley DO [address] [place] [address] PCP - General Family Medicine 07/27/23 documented as of this encounter
--- OUTSIDE RECORDS SUMMARY | 2024-03-19 14:56 | XMS_ITS | Encounter Summary ---
Author Organization [facility] Address [address] [place] [address] Care Team Providers Care Band Shover Name Role Phone Zhane Stanley DO Primary Care Provider [phone] Encounter Details Date Type Department Care Team (Late st Contact Info) Description 12/22/2023 Telephone [facility] [address] [place] [address] Brisa Paulino [address] [place] [address] Social History Tobacco Use Types [...] if they would like to schedule with [facility] lab. documented in this encounter Plan of Treatment Not on file documented as of this encounter Visit Diagnoses Not on filedocumented in this encounter Care Teams Band Shover Relationship Specialty Start Date End Date Zhane Stanley DO [address] [place] [address] PCP - General Family Medicine 07/27/23 documented as of this encounter
--- OUTSIDE RECORDS SUMMARY | 2024-03-19 14:56 | XMS_ITS | Clinical Summary ---
Author Organization [facility] Address [address], [place] [address] Care Team Providers Care Water Resource Manager Name Role Phone Needs Pcp, Assignment Primary Care Provider [phone] Source Comments You are receiving this document [...] for each transition of care or referral. [facility] Allerg[facility] Active Allergy Reactions Criticality Noted Date [...] a day. 1 Each 0 06/09/2016 Active [email or web address] ULTRA CONTROL solutionIndications :Uncontrolled type 2 diabetes [...] 80 MG tabletIndications:A SHD (arteriosclerotic heart disease) ([facility]),Hyperlipidemi a with target LDL less than 70 ([facility]) Take 1 tablet by mouth once daily 90 Tablet 3 08/10/2019 Active Additional Information Patient not taking.Reported on 08/28/2019 glucose 4 gram chewable tabletIndications:H ypoglycemia ([facility]) Chew and swallow 4 Tablets by mouth once as needed (Blood sugar less than 70). 30 Tablet 1 10/05/2019 Active insulin degludec 200 UNIT/ML SOPNIndications:Unc ontrolled type 2 diabetes mellitus with hyperglycemia ([facility]) Inject 32 Units subcutaneously daily. 12 mL 10/08/2019 Active amLODIPine (NORVASC) 10 MG tabletIndications:E ssential hypertension ([facility]) Take 1 Tablet by mouth daily. 90 Tablet 3 12/04/2019 Active Continuous Blood Gluc Sensor (FREESTYLE TALAT 14 DAY SENSOR) MISCIndications:Unc ontrolled type 2 diabetes mellitus with hyperglycemia ([facility]) Use as directed. Change every 14 days. 6 Each 4 12/04/2019 Active Continuous Blood Gluc Mailing Section Clerk (FREESTYLE TALAT 2 READER SYSTM) DEVIIndications:Unc ontrolled type 2 diabetes mellitus with hyperglycemia ([facility]) Use to scan blood sugars per military analyst instructions. 1 Each 12/04/2019 Active metFORMIN (GLUCOPHAGE) 500 MG tablet Take 2 Tablets by mouth two times a day with meals. 360 Tablet 3 01/09/2020 Active busPIRone (BUSPAR) 10 MG tabletIndications:A nxiety ([facility]) Take 3 Tablets by mouth two times [...] migh t be different from the original. Visual Manager: Lesly Rodrigues [facility] Yaritza [phone] Care coordination focus: T2DM, financial resources Living situation: lives with spouse Important notes: SSDI, significant insulin resistance, regularly reaches Medicare Coverage Gap and cannot afford insulin Problem Noted Date Diagnosed Date Non-proliferative diabetic retinopathy 0 Hyponatremia 01/16/2018 Tinea versicolor 07/18/2015 Tobacco use disorder 10/26/2012 Anemia 05/02/2012 Overview (12/15/2016): Anemia, unspecified Microalbuminuria 02/04/2012 FL, old 09/16/2011 History of PTCA 09/16/2011 Overview [...] I disorder 09/15/2005 Overview (12/15/2016): LW Onset: [id number] ; Bipolar I Dis Resolved Problems Problem Noted Date Diagnosed Date Resolved Date Tobacco abuse 02/24/2016 12/18/2018 ACS (acute coronary syndrome) 10/25/2012 02/16/2017 Mass on back 05/02/2012 10/25/2012 Health snf, active care coordination 03/22/2012 07/27/2018 Overview (11/26/2015): Visual Manager: JOSETTE Yip [phone] Care coordination focus: T2DM, financial resources Living situation: lives with spouse Important notes: SSDI, significant insulin resistance, uses Relion insulin, commonly reaches Medicare Coverage Gap See care plan under Chart Review > Misc Reports > AMB H CARE PLAN REPORT Assessment & Plan (09/01/2017 11:39 AM CDT): Visual Manager: Lesly Rodrigues [facility] [phone] Care coordination focus: mental health Living situation: Lives with Important notes: mh case management starting LFTs abnormal 02/02/2012 10/25/2012 S/P angioplasty with stent 05/26/2011 0 10/25/2012 Overview (11/26/2015): Apr 2011 Plantar wart 05/26/2011 10/25/2012 Acute FL 05/01/2011 02/01/2012 Hypertriglyceridemia 12/11/2010 013 Overview (11/26/2015): [...] mos) 03/14/2013 Influenza IIV4 (Quadrivalent ) 0.5mL (76703) 01/07/2020,01/16/2018,02/16/2017,2015,03/27/2015,01/16/2014,03/14/2013 Influenza, Unspecified Formulation 08/23,03/14/2013,03/17/2009,2006,03/23/2006,05/19/2005,03/12/2002 PPSV23 (Pneumovax) [...] Comments Blood Pressure 132/88 06/09/2020 4:43 PM STRUCTURAL STEEL SHOP SUPERVISOR Pulse 99 06/09/2020 4:43 PM STRUCTURAL STEEL SHOP SUPERVISOR Temperature 38.2 C (100.8 F) 05/02/2019 11:31 AM STRUCTURAL STEEL SHOP SUPERVISOR Respiratory Rate 16 03/07/2013 2:52 PM STRUCTURAL STEEL SHOP SUPERVISOR Oxygen Saturation 97% 10/27/2012 3:52 PM CDT Inhaled Oxygen Concentration - - Weight 88.9 kg (196 lb) 06/09/2020 4:43 PM STRUCTURAL STEEL SHOP SUPERVISOR Height 177.8 cm (5' 10) 12/04/2019 10:49 [...] Wellness Visit 07/04/2021 07/04/2020, 12/04/2019 Diabetes: HGBA1C 02/10/2022 08/11/2021, , 01/07/2021, Additional history exists COVID-19 [...] ([facility]) HIV ANTIBODY Routine 03/12/2002 12:48 PM STRUCTURAL STEEL SHOP SUPERVISOR HEPATITIS C ANTIBODY, WITH REFLEX Routine 03/12/2002 12:48 PM STRUCTURAL STEEL SHOP SUPERVISOR from Last 3 Months or Most Recently Relevant to Health Maintenance Results * (ABNORMAL) Microalb/Creat Ratio - in 3 months (12/04/2019 10:10 AM CDT) Albumin, Urine, Random 351.2 mg/L 12/04/2019 3:54 PM CDT [facility] Creatinine, Urine, Random 106 >20 mg/dL 12/04/2019 3:54 PM CDT [facility] Albumin/Creati nine Ratio, Urine, Random 331(H) <30 mg/g 12/04/2019 3:54 PM CDT [facility] Urine Non-blood Collection / Unknown 12/04/2019 10:10 AM CDT 12/04/2019 10:10 AM CDT Gagandeep Hinojosa MD LAB_1 Performing Organization Address City/[facility]/ZIP Co de Phone Number [facility] [address] [place] [address], [facility] [phone] * (ABNORMAL) POCT Glycosylated Hemoglobin (HB A1C) - in 3 months (12/04/2019 10:06 AM CDT) Hemoglobin A1C (Rapid) 11.3(H) <=5.6 % 12/04/2019 10:15 AM CDT [facility] Blood Venipuncture / Unknown 12/04/2019 10:06 AM CDT 12/04/2019 10:06 AM CDT Narrative [facility] - 12/04/2019 10:15 AM CDT This Rapid A1c test is designed for monitoring patients with an established diagnosis of diabetes mellitus. This rapid method is not suitable to establish the initial diagnosis of diabetes mellitus. Performed using Point of Care Instrumentation. Gagandeep Hinojosa MD LAB_1 Performing Organization Address City/[facility]/ZIP Co de Phone Number [facility] [address] [place] [address], [facility] [phone] * (ABNORMAL) Lipid Panel and Direct LDL(If Needed) - in 3 months (12/04/2019 10:06 AM CDT) Cholesterol 116 0 - 199 mg/dL 12/04/2019 4:03 PM T [facility] Triglyceride 137 <=149 mg/dL 12/04/2019 4:03 PM T [facility] HDL Cholesterol 35(L) >=40 mg/dL 0 4:03 PM T [facility] LDL, Calculated 54 <130 mg/dL 0 4:03 PM T [facility] Non HDL Chol, Calculated 81 mg/dL 12/04/2019 4:03 PM T [facility] Cholesterol/HDL Ratio 3.3 12/04/2019 4:03 PM T [facility] Hours Fasting 12 12/04/2019 4:03 PM CDT [facility] Blood Venipuncture / Unknown 12/04/2019 10:06 AM CDT 12/04/2019 10:06 AM CDT Gagandeep Hinojosa MD LAB_1 [facility] [address] [place] [address], [facility] [phone] [facility] [address] [place] [address] [place] [address], [facility] [phone] * Creatinine / GFR - in 3 months (12/04/2019 10:06 AM CDT) Creatinine 0.80 0.73 - 1.18 mg/dL 12/04/2019 4:03 PM T [facility] GFR, Estimated >60 >60 mL/min/1.7 3m2 12/04/2019 4:03 PM T [facility] Blood Venipuncture / Unknown 12/04/2019 10:06 AM CDT 12/04/2019 10:06 AM CDT Gagandeep Hinojosa MD LAB_1 [facility] [address] [place] [address], [facility] [phone] * HIV Antibody (03/12/2002 12:48 PM STRUCTURAL STEEL SHOP SUPERVISOR) HIV 1/HIV 2 Non Reac Non Reac HP CONVERSION 03/12/2002 12:4 8 PM STRUCTURAL STEEL SHOP SUPERVISOR Antonio Jerez MD LAB_1 HP CONVERSION * Hepatitis C Antibody, with Reflex (03/12/2002 12:48 PM STRUCTURAL STEEL SHOP SUPERVISOR) Hepatitis C Antibody Non Reac Non Reac HP CONVERSION 03/12/2002 12:4 8 PM STRUCTURAL STEEL SHOP SUPERVISOR Antonio Jerez MD LAB_1 Performing Organization Address City/[facility]/ZIP Co de Phone Number HP CONVERSION from [...] 4:27 AM 05/01/2011 12:21 PM Care Teams Water Resource Manager Relationship Specialty Start Date End Date Needs Pcp, [place] [address] PCP - General 01/24/24 Vane Zarate Psychiatrist Psychiatry 03/22/12 [facility] Mental Health Psychotherapist 08/04/17 [facility] Medical Records Assistant 09/13/17
== END 2024-03-19 14:54 | disposition home or self-care (01) ==
LOC: WOUND 14:53
PROVIDERS: PCP Family Medicine; Visit Provider Nurse Practitioner Family
DX: E11.621 Type 2 diabetes mellitus with foot ulcer (principal); L97.412 Non-pressure chronic ulcer of right heel and midfoot with fat layer exposed; L97.522 Non-pressure chronic ulcer of other part of left foot with fat layer exposed; Z79.4 Long term (current) use of insulin; Z79.84 Long term (current) use of oral hypoglycemic drugs
CPT/HCPCS: G0463

== ENCOUNTER 2024-03-30 09:16 | Outpatient (CLI) | payer MEDICARE, MEDICAID, SELFPAY ==
--- OUTSIDE RECORDS SUMMARY | 2024-03-30 09:18 | XMS_ITS | Encounter Summary ---
Author Organization [facility] Address [address] [place] [address] Care Team Providers Care Churn Tender Name Role Phone Zhane Stanley DO Primary Care Provider [phone] Encounter Details Date Type Department Care Team (Late st Contact Info) Description 10/08/2023 Orders Only [facility] [address] [place] [address] Mike Edmondson MD [address] [place] [address] Hypo-osmolality and hyponatremia Social History [...] hyponatremia documented in this encounter Care Teams Churn Tender Relationship Specialty Start Date End Date Zhane Stanley DO [address] [place] [address] PCP - General Family Medicine 07/27/23 documented as of this encounter
--- OUTSIDE RECORDS SUMMARY | 2024-03-30 09:18 | XMS_ITS | Clinical Summary ---
Author Organization [facility] [facility] s [facility] Address [place], [place] [address] Care Team Providers Care Haunted History Tour Guide Name Role Phone Glenys Alcantar MD Unavailable [phone] [facility], [facility] Unavailable [phone] Zhane Stanley DO Primary Care Provider [phone] Samantha Grayson PharmD Unavailable [phone] Allergies Active Allergy Reactions Criticality Noted Date [...] Tablet 3 07/29/19 24 Active Insulin Safety [place], Disp, 30 gauge x ndications:Ty pe 2 [...] Level 3) soln As directed. Active menthol (Larsen Cough Drops) 3.2 mg lozg Dissolve 1 [...] unit/mL (3 mL) pen 09/05/19 24 Active diphenhydrAMINE (Banophen) 25 mg capsule Take 1 Capsule (25 mg) by mouth every 6 hours if needed (sleep or allergies). Also helps with anxiety 03/09/20 24 Active propranolol ER (INDERAL LA) 60 mg [...] daily. 112 Tablet 12 03/09/20 24 Active ALPRAZolam (XANAX) 0.25 mg tabletIndications: Panic disorder without agoraphobia,Genera lized anxiety disorder Take 1 tablet (0.25 mg) every morning AND 1 tablet (0.25 mg) every evening. Further refills will be prescribed during an appointment 60 Tablet 2 03/27/20 24 Active loperamide (IMODIUM) 2 mg capsule [...] 5 days. 20 Capsule 03/08/20 24 024 ALPRAZolam (XANAX) 0.25 mg tabletIndications: Panic disorder without agoraphobia,Genera lized anxiety disorder Take 2 tablets (0.5 mg) every morning AND 1 tablets (0.25 mg) every evening. Further refills will be prescribed during an appointment 90 Tablet 2 03/09/20 24 024 Discontinued(*M edication adjustment) Active Problems Problem Noted Date Diagnosed Date Iliac artery stenosis, right 03/09/2024 Diabetic foot ulcer associat ed with type 2 diabetes mellitus 03/01/2024 Cellulitis in diabetic foot 03/01/2024 Chronic kidney disease, stage 2 (mild) 4 Overview (03/01/2024): Baseline creatinine approximately 1-1.2 range for several years. Longstanding, documented albuminuria, first identified November 2010 at 39 mg/g (from 5135-9779, values arranged between 80-150 mg/g). Recent values [...] Encounters Date Type Department Care Team Description 03/29/2024 Telephone [facility] [address] [place] [address] Johan Ye MD 03/27/2024 1:00 PM DIGITAL MARKETING EXECUTIVE Office Visit [facility] [address] [place] [address] Johan Ye MD Medication Management 03/27/2024 Travel 03/23/2024 Telephone [facility] [address] [place] [address] Hardeep Reardon MD Questions (colonoscopy) 03/23/2024 Telephone [facility] [address] [place] [address] Ky Love MD 03/19/2024 9:00 AM DIGITAL MARKETING EXECUTIVE Ancillary Procedure [facility] [address] [place] [address] 03/19/2024 Travel 03/15/2024 Telephone [facility] [address] [place] [address] Jorge A Morgan MD Referral 03/12/2024 Orders Only [facility] [address] [place] [address] Gagandeep Manuel NP <No scans attached> 03/09/2024 11:00 AM DIGITAL MARKETING EXECUTIVE Office Visit [facility] [address] [place] [address] Shaqra Zhane Анна, DO Derm Problem (Cellulitis follow up ) 03/09/2024 9:30 AM DIGITAL MARKETING EXECUTIVE Office Visit [facility] [address] [place] [address] Johan Ye MD Medication Management (medications reviewed yesterday 03/08/24 at appointment) 03/08/2024 10:50 AM DIGITAL MARKETING EXECUTIVE Office Visit [facility] [address] [place] [address] Hardeep Reardon MD Foot Pain/problem (Cellulitis on both feet) 03/08/2024 Travel 03/07/[address] [address] Shaqra Zhane Анна, DO Refill Request (Metformin, Furosemide, Gabapentin, gavilax) 03/05/[address] [address] Shaqra Zhane Анна, DO Refill Request (GAVILAX) 03/05/2024 Patient Outreach [address] [address] Jacqueline Oliver RN Primary RN Care Management; Hospital F/U (LACE 23/) 03/01/2024 1:04 PM DIGITAL MARKETING EXECUTIVE - 03/03/2024 11:55 AM DIGITAL MARKETING EXECUTIVE Hospital Encounter [facility] [address] [place] [address] Marco Antonio Goodwin DO Cellulitis in diabetic foot (HC) (Primary Dx) Discharge Disposition: Home Self Care 03/01/2024 7:00 AM DIGITAL MARKETING EXECUTIVE Office Visit [address] [address] Anabel Sanchez MD Foot Problem (Sores on [...] X1 week.) 03/01/2024 Travel 02/27/2024 Nurse Triage [facility] [address] [place] [address] Zhane Stanley, DO Foot Pain/problem (L heel ) 02/15/[address] [address] Zhane Stanley Анна, DO NICOTINE JANNA 02/13/2024 1:00 PM CDT Office Visit [address] [address] Hardeep Reardon MD Diarrhea (Having liquid bowel movements while sleeping x4. Unaware of needing to use the restroom. ) 02/13/[address] [address] Ky Love MD Chart Review 02/13/2024 Travel 02/07/2024 Refill [facility] [address] [place] [address] Zhane Stanley, Refill Request (Jardiance) 02/03/2024 9:30 AM CDT Office Visit [facility] [address] [place] [address] Johan Ye MD Follow Up; Medication Management (Discuss medications) 02/03/2024 Refill [facility] [address] [place] [address] Johan Ye MD Refill Request; PROPRANOLOL 02/03/2024 Travel 01/16/2024 Refill [facility] [address] [place] [address] Zhane Stanley, DO Refill Request (Nicotine ) 01/09/2024 Telephone [facility] [address] [place] [address] Johan Ye MD Results 01/06/2024 3:30 PM CDT Orders Only [facility] [address] [facility] [place] [address] Lab, [facility] 01/06/2024 9:00 AM CDT Office Visit [facility] [address] [place] [address] Johan Ye MD Follow Up; Medication Management (feeling, overall emotionally, just great. I was looking foreword to seeing the doctor. Is cold and shaky.) 01/06/2024 Travel from Last 3 Months Immunizations Name Administration Dates Next Due COVID-19 vaccine ([employer]e-Bio NTech 30mcg/0.3mL) 12YO+ KATHERINE-SUCROSE PFMDV 10/01/2021 COVID-19 vaccine (Diwanee-Bio NTech 30mcg/0.3mL) AMILCAR MDV 09/16/2020,08/26/2020 Hepatitis B (Adult) 03/02/2023,08/18/2020,2018 INFLUENZA, [...] Has not had a drink since the 1990s as did not want interactions with medication PHQ-2 Answer Date Recorded PHQ-2 TOTAL SCORE 0 03/27/2024 Social Connections Answer Date Recorded Do you often feel lonely or isolated from those around you? 0 03/01/2024 Alcohol Use Answer Date Recorded How often do you have a drink containing alcohol ? 0 06/11/2022 Average Number of Drinks Not on file 02/17/2 023 How often do you have five [...] Sign Reading Time Taken Comments Blood Pressure 167/90 03/27/2024 1:02 PM DIGITAL MARKETING EXECUTIVE Pulse 86 03/27/2024 1:02 PM DIGITAL MARKETING EXECUTIVE Temperature 37.2 C (99 F) 03/03/2024 7:48 AM DIGITAL MARKETING EXECUTIVE Respiratory Rate 20 03/03/2024 7:48 AM DIGITAL MARKETING EXECUTIVE Oxygen Saturation 99% 03/09/2024 10:53 AM DIGITAL MARKETING EXECUTIVE Inhaled Oxygen Concentration - - Weight 94.3 kg (208 lb) 03/27/2024 12:59 PM DIGITAL MARKETING EXECUTIVE Height 177.8 cm (5' 10) 11/14/2023 9:23 AM CDT Body Mass Index 29.84 11/14/2023 9:23 AM CDT Plan of Treatment Upcoming Encounters Date Type Department Care Team (Late st Contact Info) Description 04/04/2024 1:15 PM DIGITAL MARKETING EXECUTIVE Appointment [facility] [address] [place] [address] 04/04/2024 2:00 PM DIGITAL MARKETING EXECUTIVE Office Visit [facility] [address] [place] [address] Nathan Matthews MD [address] [place] [address] 05/01/2024 10:30 AM DIGITAL MARKETING EXECUTIVE Office Visit [facility] [place] [address] [place] [address] Zi Chen, DPM [address] [place] [address] 05/14/2024 11:00 AM DIGITAL MARKETING EXECUTIVE Office Visit [facility] [address] [place] [address] Johan Ye MD [address] [place] [address] 06/05/2024 12:30 PM DIGITAL MARKETING EXECUTIVE Office Visit [facility] [address] [place] [address] Johan Ye MD [address] [place] [address] Health Maintenance Due Date Last Done Comments BMI (ht and wt on same day) for age 18+ 11/13/2024 11/14/2023, 09/12/2023, 11/22/2022, Additional history exists Low Dose CT (for lung CA) ag e 50-80 03/19/2025 03/19/2024, 02/14/2023, 12/21/2021, Additional history exists Depression screening for age 12+ 03/29/2025 03/29/2024, 03/27/2024, 03/12/2024, Additional history exists Fecal testing sDNA-FIT ([place] guard) for age 45-75 09/07/2025 09/07/2022 Tetanus [...] Procedure Name Priority Date/Time Associated Diagnosis Comments CT CHEST SCREENING LOW DOSE WO CONTRAST Routine 03/19/2024 9:12 AM DIGITAL MARKETING EXECUTIVE Encounter for screening for lung cancer Former smoker IRON PLUS IRON BINDING CAP Routine 03/08/2024 12:02 PM DIGITAL MARKETING EXECUTIVE Anemia of unknown etiology HEMOGLOBIN Routine 03/08/2024 12:02 PM DIGITAL MARKETING EXECUTIVE Anemia of unknown etiology BASIC METABOLIC PANEL Routine 03/08/2024 12:02 PM DIGITAL MARKETING EXECUTIVE Hyperkalemia GLUCOSE METER Routine 03/03/2024 11:03 AM DIGITAL MARKETING EXECUTIVE GLUCOSE METER Routine 03/03/2024 7:48 AM DIGITAL MARKETING EXECUTIVE C-REACTIVE PROTEIN Early AM 03/03/2024 6: 34 AM DIGITAL MARKETING EXECUTIVE SODIUM Early AM 03/03/2024 6:34 AM DIGITAL MARKETING EXECUTIVE HEMOGLOBIN Early AM 03/03/2024 6:34 AM DIGITAL MARKETING EXECUTIVE CREATININE Early AM 03/03/2024 6:34 AM DIGITAL MARKETING EXECUTIVE POTASSIUM Early AM 03/03/2024 6:34 AM DIGITAL MARKETING EXECUTIVE MAGNESIUM Early AM 03/03/2024 6:34 AM DIGITAL MARKETING EXECUTIVE GLUCOSE METER Routine 03/02/2024 8:55 PM DIGITAL MARKETING EXECUTIVE GLUCOSE METER Routine 03/02/2024 6:33 PM DIGITAL MARKETING EXECUTIVE GLUCOSE METER Routine 03/02/2024 11:37 AM DIGITAL MARKETING EXECUTIVE GLUCOSE METER Routine 03/02/2024 8:[address]ING [address] ANGIO LOWER EXTREMITY BILAT RUNOFF Early AM 03/02/2024 8:29 AM DIGITAL MARKETING EXECUTIVE C-REACTIVE PROTEIN [place] 03/02/2024 5: 49 AM DIGITAL MARKETING EXECUTIVE HEMOGLOBIN Early AM 03/02/2024 5:49 AM DIGITAL MARKETING EXECUTIVE WHITE BLOOD COUNT Early AM 03/02/2024 5:4 9 AM DIGITAL MARKETING EXECUTIVE MAGNESIUM Early AM 03/02/2024 5:49 AM DIGITAL MARKETING EXECUTIVE CREATININE Early AM 03/02/2024 5:49 AM DIGITAL MARKETING EXECUTIVE POTASSIUM Early AM 03/02/2024 5:49 AM DIGITAL MARKETING EXECUTIVE SODIUM Early AM 03/02/2024 5:49 AM DIGITAL MARKETING EXECUTIVE GLUCOSE METER Routine 03/01/2024 9:17 PM DIGITAL MARKETING EXECUTIVE GLUCOSE METER Routine 03/01/2024 6:00 PM DIGITAL MARKETING EXECUTIVE EKG 12 LEAD [place] 03/01/2024 3:32 PM DIGITAL MARKETING EXECUTIVE MRSA/SA PCR Today 03/01/2024 2:52 PM DIGITAL MARKETING EXECUTIVE MAGNESIUM [place] 03/01/2024 2:11 PM DIGITAL MARKETING EXECUTIVE CBC WITH AUTO DIFFERENTIAL [place] 03/01/2024 2:11 PM DIGITAL MARKETING EXECUTIVE LACTATE VENOUS [place] 03/01/2024 2:11 PM DIGITAL MARKETING EXECUTIVE PROCALCITONIN [place] 03/01/2024 2:11 PM DIGITAL MARKETING EXECUTIVE SEDIMENTATION RATE [place] 03/01/2024 2: 11 PM DIGITAL MARKETING EXECUTIVE C-REACTIVE PROTEIN [place] 03/01/2024 2: 11 PM DIGITAL MARKETING EXECUTIVE COMP METABOLIC PANEL [place] 03/01/2024 2:11 PM DIGITAL MARKETING EXECUTIVE CBC WITH AUTO DIFFERENTIAL [place] 03/01/2024 2:11 PM DIGITAL MARKETING EXECUTIVE XR FOOT 3 VIEWS LEFT STAT 03/01/2024 2:03 PM DIGITAL MARKETING EXECUTIVE XR FOOT 3 VIEWS RIGHT STAT 03/01/2024 2:01 PM DIGITAL MARKETING EXECUTIVE BASIC METABOLIC PANEL Routine 01/06/2024 3:44 PM CDT Hyposmolality syndrome TSH WITH REFLEX Routine 01/06/2024 9:51 AM CDT Bipolar I disorder with mood-congruent psychotic features (HC) Panic disorder without agoraphobia LIPID PANEL W REFLEX MEASURED LDL Routine 11/14/2023 9:06 AM CDT Hyperlipidemia with target LDL less than 70 SDNA-FIT EXTERNAL (COLOGUARD) Routine 09/07/2022 10:30 AM CDT Screening for colon cancer ANTI HIV 1/2 [place] 06/25/2020 7:57 AM DIGITAL MARKETING EXECUTIVE ANTI HCV [place] 06/25/2020 7:57 AM DIGITAL MARKETING EXECUTIVE from Last 3 Months or Most Recently Relevant to Health Maintenance Results * CT CHEST SCREENING LOW DOSE WO CONTRAST (03/19/2024 9:12 AM DIGITAL MARKETING EXECUTIVE) Anatomical Region Laterality Modality Computed Tomogra phy Impressions 03/21/2024 9:58 AM DIGITAL MARKETING EXECUTIVE Stable study, Lung-RADS category 1 - Negative with less than 1 percent chance of malignancy. Recommend continuing annual low-dose lung cancer screening chest CT. Please note that all CT scans at this facility use dose modulation, iterative reconstruction and/or weight-based dosing when appropriate to reduce radiation dose to as low as reasonably achievable. Dictated by: Eduardo Rodrigues MD @03/19/2024 3:22:24 PM /sp Narrative 03/21/2024 9:58 AM DIGITAL MARKETING EXECUTIVE For Patients: As a result of the Cures Act, medical imaging exams and procedure reports are released immediately into your electronic medical record. You may view this report before your referring provider. If you have questions, please contact your health care provider. CT CHEST SCREENING LOW-DOSE WITHOUT CONTRAST 03/19/2024 INDICATION: Former smoker, lung cancer screening. TECHNIQUE: Low-dose lung cancer screening CT chest without contrast COMPARISON: CT chest 03/17/2023. FINDINGS: Heart is normal in size with stable coronary artery atherosclerotic calcifications and without pericardial effusion. Great vessels are normal in caliber. There is no mediastinal mass or lymphadenopathy. Lungs are clear. Visualized upper abdomen is unremarkable. There are unchanged degenerative changes within the thoracic spine. Soft tissues are unremarkable. Zhane Анна Nelsonqra DO CT * IRON PLUS IRON BINDING CAP (03/08/2024 12:02 PM DIGITAL MARKETING EXECUTIVE) IRON, TOTAL 75 50 - 180 mcg/dL [employer] [facility] IRON BINDING CAPACITY 271 250 - 425 mcg/dL (calc) [employer] % SATURATION 28 20 - 48 % (calc) [employer] [facility] Blood BLOOD SPECIMEN / Unknown 03/08/2024 12:02 PM DIGITAL MARKETING EXECUTIVE 03/08/2024 12:02 PM DIGITAL MARKETING EXECUTIVE Hardeep Reardon MD BILLET DRILLER RY [employer] [facility] [address] [place] [address], [employer] [address] [place] [address] * (ABNORMAL) HEMOGLOBIN (03/08/2024 12:02 PM DIGITAL MARKETING EXECUTIVE) Only the most recent of3 resultswithin the time period is included. Pathologist [facility] HEMOGLOBIN 12.2(L) 13.2 - 17.1 g/dL [employer] Blood BLOOD SPECIMEN / Unknown 03/08/2024 12:02 PM DIGITAL MARKETING EXECUTIVE 03/08/2024 12:02 PM DIGITAL MARKETING EXECUTIVE Hardeep Reardon MD HEMATOL OGY [employer] [facility] [address] [place] [address], [facility] [address] [place] [address] * (ABNORMAL) BASIC METABOLIC PANEL (03/08/2024 12:02 PM DIGITAL MARKETING EXECUTIVE) Only the most recent of2 resultswithin the time period is included. [facility] GLUCOSE 148(H) 65 - 99 mg/dL [employer] Comment: Fasting reference interval For someone without known diabetes, a glucose value >125 mg/dL indicates that they may have diabetes and this should be confirmed with a follow-up test. UREA NITROGEN (BUN) 23 7 - 25 mg/dL [employer] CREATININE 1.15 0.70 - 1.30 mg/dL [facility] [facility] EGFR 76 > OR = 60 mL/min/1. 73m2 [employer] [facility] BUN/CREATININE RATIO SEE NOTE: 6 - 22 (calc) [facility] Comment: Not Reported: BUN and [...] 8.9 8.6 - 10.3 mg/dL [facility] Blood BLOOD SPECIMEN / Unknown 03/08/2024 12:02 PM DIGITAL MARKETING EXECUTIVE 03/08/2024 12:02 PM DIGITAL MARKETING EXECUTIVE Hardeep Reardon MD BILLET DRILLER RY [employer] [facility] [address] [place] [address], [facility] [address] [place] [address] * (ABNORMAL) GLUCOSE METER (03/03/2024 11:03 AM DIGITAL MARKETING EXECUTIVE) Only the most recent of8 resultswithin the time period is included. GLUCOSE METER 251(H) 65 - 100 mg/dL 03/03/2024 11:08 AM DIGITAL MARKETING EXECUTIVE [facility] Blood BLOOD SPECIMEN / Unknown 03/03/2024 11:03 AM DIGITAL MARKETING EXECUTIVE 03/03/2024 11:08 AM DIGITAL MARKETING EXECUTIVE Marco Antonio Goodwin DO CHEMISTRY Performing Organization Address [facility] de Phone Number [facility] [address] [place] [address] * (ABNORMAL) SODIUM (03/03/2024 6:34 AM DIGITAL MARKETING EXECUTIVE) Only the most recent of2 resultswithin the time period is included. SODIUM 134(L) 136 - 145 mmol/L 03/03/2024 7:32 AM DIGITAL MARKETING EXECUTIVE [facility] Blood BLOOD SPECIMEN / Unknown Venipuncture / Unknown 03/03/2024 6:34 AM DIGITAL MARKETING EXECUTIVE 03/03/2024 6:52 AM DIGITAL MARKETING EXECUTIVE Marco Antonio Goodwin DO CHEMISTRY Performing Organization Address City/[facility]/ZIP Co de Phone Number [facility] [address] [place] [address] * (ABNORMAL) POTASSIUM (03/03/2024 6:34 AM DIGITAL MARKETING EXECUTIVE) Only the most recent of2 resultswithin the time period is included. POTASSIUM 5.2(H) 3.5 - 5.1 mmol/L 03/03/2024 7:32 AM [facility] Blood BLOOD SPECIMEN / Unknown Venipuncture / Unknown 03/03/2024 6:34 AM DIGITAL MARKETING EXECUTIVE 03/03/2024 6:52 AM DIGITAL MARKETING EXECUTIVE Freya Roberts RN CHEMISTRY Performing Organization Address City/[facility]/ZIP Co de Phone Number [facility] [address] [place] [address] * (ABNORMAL) CREATININE (03/03/2024 6:34 AM DIGITAL MARKETING EXECUTIVE) Only the most recent of2 resultswithin the time period is included. eGFR 79(L) >90 mL/min/1.7 3m2 03/03/2024 7:32 AM [facility] Comment:As of 2021, eG FR is calculated by the CKD-EPI creatinine equation without race adjustment. eGFR can be influenced by muscle mass, exercise, and diet. The reported eGFR is an estimation only and is only applicable if the renal function is stable. CREATININE 1.11 0.70 - 1.20 mg/dL 03/03/2024 7:32 AM [facility] Blood BLOOD SPECIMEN / Unknown Venipuncture / Unknown 03/03/2024 6:34 AM DIGITAL MARKETING EXECUTIVE 03/03/2024 6:52 AM DIGITAL MARKETING EXECUTIVE Marco Antonio Goodwin DO CHEMISTRY Performing Organization Address [facility]/ZIP Co de Phone Number [facility] [address] [place] [address] * (ABNORMAL) C-REACTIVE PROTEIN (03/03/2024 6:34 AM DIGITAL MARKETING EXECUTIVE) Only the most recent of3 resultswithin the time period is included. C-REACTIVE PROTEIN 4.6(H) <0.5 mg/dL 03/03/2024 7:32 AM DIGITAL MARKETING EXECUTIVE [facility] Blood BLOOD SPECIMEN / Unknown Venipuncture / Unknown 03/03/2024 6:34 AM DIGITAL MARKETING EXECUTIVE 03/03/2024 6:52 AM DIGITAL MARKETING EXECUTIVE Marco Antoniobelén Pratt Buddy SAL CHEMISTRY Performing Organization Address [facility] Co de Phone Number [facility] [address] [place] [address] * MAGNESIUM (03/03/2024 6:34 AM DIGITAL MARKETING EXECUTIVE) Only the most recent of3 resultswithin the time period is included. MAGNESIUM 2.4 1.6 - 2.6 mg/dL 03/03/2024 7:32 AM DIGITAL MARKETING EXECUTIVE [facility] Blood BLOOD SPECIMEN / Unknown Venipuncture / Unknown 03/03/2024 6:34 AM DIGITAL MARKETING EXECUTIVE 03/03/2024 6:52 AM DIGITAL MARKETING EXECUTIVE Freya Roberts RN CHEMISTRY Performing Organization Address [facility] Co de Phone Number [facility] [address] [place] [address] * CT ANGIO LOWER EXTREMITY BILAT RUNOFF (03/02/2024 8:29 AM DIGITAL MARKETING EXECUTIVE) Anatomical Region Laterality Modality LEGS Computed Tomogra phy 03/02/2024 10:0 6 AM DIGITAL MARKETING EXECUTIVE Narrative 03/02/2024 10:06 AM DIGITAL MARKETING EXECUTIVE For Patients: As a result of the [...] stenosis in the superficial femoral artery. Focal ghdx-ln-pusibomt stenosis in the distal popliteal artery. Tibioperoneal arteries: Patent, with three-vessel runoff to the ankle. Left lower extremity: Common/external iliac arteries: Left common iliac artery measures 9 mm. Lkbl-ut-ybunqwkw mixed atherosclerotic disease in the common iliac [...] multifocalstenosis in the superficial femoral artery. Focal rmdj-qs-xlvrlupvtkzfkcbz in the distal popliteal artery. Tibioperoneal arteries: Patent, with three-vessel runoff to the ankle. Left lower extremity: Common/external iliac arteries: Left common iliac artery measures 9 mm.Nzsq-wn-vlwsgoig mixed atherosclerotic disease in the common iliac [...] * WHITE BLOOD COUNT (03/02/2024 5:49 AM DIGITAL MARKETING EXECUTIVE) [facility] WHITE BLOOD COUNT 6.1 4.5 - 11.0 thou/cu mm 03/02/2024 6:38 AM DIGITAL MARKETING EXECUTIVE [facility] Blood BLOOD SPECIMEN / Unknown Venipuncture / Unknown 03/02/2024 5:49 AM DIGITAL MARKETING EXECUTIVE 03/02/2024 6:34 AM DIGITAL MARKETING EXECUTIVE Marco Antonio Goodwin DO HEMATOLOGY [facility] [address] [place] [address] * 12 Lead EKG (03/01/2024 3:32 PM DIGITAL MARKETING EXECUTIVE) [facility] Interpretation Normal sinus rhythm Minimal voltage criteria [...] NOW QTc 428 ms BEYOND NOW P Central 37 degrees BEYOND NOW R Central 15 degrees BEYOND NOW T Central 33 degrees BEYOND NOW 03/01/2024 3:32 PM DIGITAL MARKETING EXECUTIVE 03/01/2024 6:37 PM DIGITAL MARKETING EXECUTIVE Marco Antonio Goodwin DO EKG ORD Performing Organization Address City/[facility]/ZIP Co de Phone Number BEYOND NOW [place], [place] * MRSA/SA PCR (03/01/2024 2:52 PM DIGITAL MARKETING EXECUTIVE) MRSA DNA PCR Negative Negative 03/01/2024 11:27 PM DIGITAL MARKETING EXECUTIVE [facility] STAPHYLOCOCCUS AUREUS PCR Negative Negative 03/01/2024 11:27 PM DIGITAL MARKETING EXECUTIVE [facility] Other SPECIMEN FROM INTERNAL NOSE / Unknown Non-Blood / Unknown 03/01/2024 2:52 PM DIGITAL MARKETING EXECUTIVE 03/01/2024 3:07 PM DIGITAL MARKETING EXECUTIVE Narrative [facility] - 03/01/2024 11:27 PM DIGITAL MARKETING EXECUTIVE Test result does not preclude MRSA or SA nasal colonization. Marco Antonio Goodwin DO MICROBIOLOGY Performing Organization Address [facility] Co de Phone Number [facility] [address] [place] [address], * (ABNORMAL) SEDIMENTATION RATE (03/01/2024 2:11 PM DIGITAL MARKETING EXECUTIVE) Pathologist [facility] SEDIMENTATION RATE 46(H) <20 mm/hr 2023 2:34 PM DIGITAL MARKETING EXECUTIVE [facility] Blood BLOOD SPECIMEN / Unknown Venipuncture / Unknown 03/01/2024 2:11 PM DIGITAL MARKETING EXECUTIVE 03/01/2024 2:14 PM DIGITAL MARKETING EXECUTIVE Marco Antonio Goodwin DO HEMATOLOGY Performing Organization Address City/[facility]/ZIP Co de Phone Number [facility] [address] [place] [address] * (ABNORMAL) CBC WITH AUTO DIFFERENTIAL (03/01/2024 2:11 PM DIGITAL MARKETING EXECUTIVE) WHITE BLOOD COUNT 7.4 4.5 - 11.0 thou/cu mm 03/01/2024 2:21 PM DIGITAL MARKETING EXECUTIVE [facility] RED BLOOD COUNT 3.84(L) 4.30 - 5.90 mil/cu mm 03/01/2024 2:21 PM DIGITAL MARKETING EXECUTIVE [facility] HEMOGLOBIN 11.5(L) 13.5 - 17.5 g/dL 03/01/2024 2:21 PM [facility] HEMATOCRIT 33.7(L) 37.0 - 53.0 % 03/01/2024 2:21 PM [facility] MCV 88 80 - 100 fL 03/01/2024 2:21 PM [facility] MCH 29.9 26.0 - 34.0 pg 03/01/2024 2:21 PM [facility] MCHC 34.1 32.0 - 36.0 g/dL 03/01/2024 2:21 PM [facility] RDW 12.6 11.5 - 15.5 % 03/01/2024 2:21 PM [facility] PLATELET COUNT 153 140 - 440 thou/cu mm 03/01/2024 2:21 PM [facility] MPV 8.8 6.5 - 11.0 fL 03/01/2024 2:21 PM [facility] % NEUT 61.2 % 03/01/2024 2:21 PM [facility] % LYMPH 18.6 % 03/01/2024 2:21 PM [facility] % MONO 19.5 % 03/01/2024 2:21 PM [facility] % EOS 0.3 % 03/01/2024 2:21 PM [facility] % BASO 0.4 % 03/01/2024 2:21 PM [facility] ABSOLUTE NEUTROPHILS 4.5 1.7 - 7.0 thou/cu mm 03/01/2024 2:21 PM [facility] ABSOLUTE LYMPHOCYTES 1.4 0.9 - 2.9 thou/cu mm 03/01/2024 2:21 PM [facility] ABSOLUTE MONOCYTES 1.4(H) <0.9 thou/cu mm 03/01/2024 2:21 PM [facility] ABSOLUTE EOSINOPHILS 0.0 <0.5 thou/cu mm 03/01/2024 2:21 PM [facility] ABSOLUTE BASOPHILS 0.0 <0.3 thou/cu mm 03/01/2024 2:21 PM DIGITAL MARKETING EXECUTIVE [facility] Blood BLOOD SPECIMEN / Unknown Venipuncture / Unknown 03/01/2024 2:11 PM DIGITAL MARKETING EXECUTIVE 03/01/2024 2:14 PM DIGITAL MARKETING EXECUTIVE Marco Antonio Goodwin DO HEMATOLOGY Performing Organization Address City/[facility]/ZIP Co de Phone Number [facility] [address] [place] [address] * LACTATE VENOUS (03/01/2024 2:11 PM DIGITAL MARKETING EXECUTIVE) LACTATE,VENOUS 1.7 0.5 - 2.0 mmol/L 03/01/2024 2:35 PM DIGITAL MARKETING EXECUTIVE [facility] Blood BLOOD SPECIMEN / Unknown Venipuncture / Unknown 03/01/2024 2:11 PM DIGITAL MARKETING EXECUTIVE 03/01/2024 2:14 PM DIGITAL MARKETING EXECUTIVE Marco Antoniobelén Arriolamarian Goodwin DO CHEMISTRY [facility] [address] [place] [address] * PROCALCITONIN (03/01/2024 2:11 PM DIGITAL MARKETING EXECUTIVE) Pathologist [facility] PROCALCITONIN 0.08 ng/ml 03/01/2024 2:54 PM DIGITAL MARKETING EXECUTIVE [facility] Blood BLOOD SPECIMEN / Unknown Venipuncture / Unknown 03/01/2024 2:11 PM DIGITAL MARKETING EXECUTIVE 03/01/2024 2:14 PM DIGITAL MARKETING EXECUTIVE Narrative [facility] - 03/01/2024 2:54 PM DIGITAL MARKETING EXECUTIVE Procalcitonin for initial assessment of Lower Respiratory [...] obtained. Marco Antonio Goodwin DO SEND OUTS [facility] [address] [place] [address] [phone] * (ABNORMAL) COMP METABOLIC PANEL (03/01/2024 2:11 PM DIGITAL MARKETING EXECUTIVE) SODIUM 130(L) 136 - 145 mmol/L 03/01/2024 2:38 PM DIGITAL MARKETING EXECUTIVE [facility] POTASSIUM 4.8 3.5 - 5.1 mmol/L 03/01/2024 2:38 PM DIGITAL MARKETING EXECUTIVE [facility] CHLORIDE 92(L) 98 - 107 mmol/L 03/01/2024 2:38 PM [facility] CO2,TOTAL 25 22 - 29 mmol/L 03/01/2024 2:38 PM [facility] ANION GAP 13 5 - 18 03/01/2024 2:38 PM [facility] GLUCOSE 118(H) 70 - 99 mg/dL 03/01/2024 2:38 PM [facility] CALCIUM 9.0 8.8 - 10.4 mg/dL 03/01/2024 2:38 PM [facility] Comment: Reference ranges for this test were updated on 02/28/2024 to reflect our healthy population more accurately. Reference range changes are not retroactively applied to results, but previous results using the same methodology can be interpreted in the context of the new reference range. BUN 25(H) 6 - 20 mg/dL 03/01/2024 2:38 PM [facility] CREATININE 1.14 0.70 - 1.20 mg/dL 03/01/2024 2:38 PM [facility] BUN/CREAT RATIO 22(H) 10 - 20 2:38 PM [facility] eGFR 76(L) >90 mL/min/1. 73m2 03/01/2024 2:38 PM [facility] Comment:As of 2021, eG FR is calculated by the CKD-EPI creatinine equation without race adjustment. eGFR can be influenced by muscle mass, exercise, and diet. The reported eGFR is an estimation only and is only applicable if the renal function is stable. ALBUMIN 3.5(L) 4.0 - 4.9 g/dL 03/01/2024 2:38 PM [facility] PROTEIN,TOTAL 6.5 6.0 - 8.0 g/dL 03/01/2024 2:38 PM [facility] BILIRUBIN,TOTAL 0.3 0.0 - 1.2 mg/dL 03/01/2024 2:38 PM [facility] ALK PHOSPHATASE 53 40 - 129 IU/L 03/01/2024 2:38 PM [facility] ALT (SGPT) 9(L) 10 - 50 IU/L 03/01/2024 2:38 PM [facility] AST (SGOT) 22 10 - 50 IU/L 03/01/2024 2:38 PM DIGITAL MARKETING EXECUTIVE [facility] Blood BLOOD SPECIMEN / Unknown Venipuncture / Unknown 03/01/2024 2:11 PM DIGITAL MARKETING EXECUTIVE 03/01/2024 2:14 PM DIGITAL MARKETING EXECUTIVE Marco Antonio Goodwin DO CHEMISTRY [facility] [address] [place] [address] * XR FOOT 3 VIEWS LEFT (03/01/2024 2:03 PM DIGITAL MARKETING EXECUTIVE) Anatomical Region Laterality Modality FEET, FOOT L Digital Radiogra phy 03/01/2024 2:13 PM DIGITAL MARKETING EXECUTIVE Narrative 03/01/2024 2:13 PM DIGITAL MARKETING EXECUTIVE For Patients: As a result of the [...] 03/01/2024 2:13:58 PM (Electronically Signed) Marco Antonio Desaidinah DO GENERAL IMAGING * XR FOOT 3 VIEWS RIGHT (03/01/2024 2:01 PM DIGITAL MARKETING EXECUTIVE) Anatomical Region Laterality Modality FEET, FOOT R Digital Radiogra phy 03/01/2024 2:11 PM DIGITAL MARKETING EXECUTIVE Narrative 03/01/2024 2:11 PM DIGITAL MARKETING EXECUTIVE For Patients: As a result of the [...] @ 03/01/2024 2:11:17 PM (Electronically Signed) Marco Antoniobelén Arriolayokomichi Buddy DO GENERAL IMAGING * TSH WITH REFLEX (01/06/2024 9:51 AM CDT) TSH 2.48 0.27 - 4.20 uIU/mL 01/06/2024 6:34 PM CDT [facility] Blood BLOOD SPECIMEN / Unknown Venipuncture / Unknown 01/06/2024 9:51 AM CDT 01/06/2024 9:51 AM CDT Narrative [facility] - 01/06/2024 6:34 PM CDT In Adults, TSH values between 5.00 and 10.00 uIU/ml do not necessarily indicate the presence of Hypothyroidism. Correlation with clinical findings such as presence of goiter and/or Thyroperoxidase (TPO) Antibody may be helpful. For more information please refer to KIMMY 2004; 291: 228-238. Johan Ye MD CHEMISTRY [facility] [address] [place] [address], * (ABNORMAL) LIPID PANEL W REFLEX MEASURED LDL (11/14/2023 9:06 AM CDT) CHOLESTEROL,TOTAL 117 100 - 199 mg/dL 11/14/2023 6:57 PM CDT [facility] Comment: Cholesterol, Total Reference Ranges Desirable <200 mg/dL Borderline 200-239 mg/dL High >=240 mg/dL TRIGLYCERIDES 156(H) <150 mg/dL 11/14/2023 6:57 PM CDT [facility] HDL CHOLESTEROL 44 >40 mg/dL 6:57 PM [facility] NON-HDL CHOLESTEROL 73 <145 mg/dl 11/14/2023 6:57 PM CDT [facility] CHOL/HDL RATIO 2.66 <4.50 11/14/2023 6:57 PM CDT [facility] LDL CHOLESTEROL 42 <=130 mg/dL 11/14/2023 6:57 PM CDT [facility] VLDL CHOLESTEROL 31(H) <=30 mg/dL 11/14/2023 6:57 PM CDT [facility] PROVIDER ORDERED STATUS RANDOM 11/14/2023 6:57 PM T [facility] Blood BLOOD SPECIMEN / Unknown Venipuncture / Unknown 11/14/2023 9:06 AM CDT 11/14/2023 9:06 AM CDT Zhane Stanley CHEMISTRY [facility] [address] [place] [address], * SDNA-FIT EXTERNAL (COLOGUARD) (09/07/2022 10:30 AM CDT) NONINV COLON CA DNA+OCC BLD SCRN STL-IMP Negative Negative 09/12/2022 4:39 PM CDT [employer] (CLIA #:[id number]) Comment: NEGATIVE TEST RESULT. A negative Cologuard [...] screened with both Cologuard and colonoscopy. (Oscar Lockhart et al, N Engl J Med 2014;370(14):1729-4051) The normal value (reference range) for this assay is negative. COLOGUARD RE-SCREENING RECOMMENDATION: Periodic colorectal cancer screening is an important part of preventive healthcare for asymptomatic individuals at average risk for colorectal cancer. Following a negative Cologuard result, the [place] Cancer Society and U.S. Multi-Society Task Force screening guidelines recommend a Cologuard re-screening interval of 3 years. References: [place] [employer] Guideline for Colorectal Cancer Screening: https://www.cancer.org/cancer/thmjf-yahzwc-zhcecz/klxnpfcom-objtkxgcu-kpyaeln/ac s-rec ommendations.html.; Rob HOLBROOK, Dory CR, Juan Luis AVILA, Colorectal Cancer Screening: Recommendations for Physicians and Patients from the U.S. Multi-Society Task Force on Colorectal Cancer Screening , Am J Gastroenterology 2017; 112:7089-6116. TEST DESCRIPTION: Composite algorithmic analysis of stool [...] (Oscar Clifford al, N Engl J Med 2014;370(14):6851-0284.) Cologuard may produce a false negative or false positive result (no colorectal cancer or precancerous polyp present at colonoscopy follow up). A negative Cologuard test result does not guarantee the absence of CRC or advanced adenoma (pre-cancer). The current Cologuard screening interval is every 3 years. ([place] [employer] Society and U.S. Multi-Society Task Force). Cologuard performance data in a 10,000 patient pivotal study using colonoscopy as the reference method can be accessed at the following location: www.Reval.com.[employer] Software/results. Additional description of the Cologuard test process, warnings and precautions can be found at www.clipkitrd.com. Stool specimen (specimen) (Rectum) 09/07/2022 10:30 AM CDT 09/08/2022 2:42 PM CDT Zhane Stanley DO [facility] [employer] (CLIA #:[id number]) [place] [address], * ANTI HCV (06/25/2020 7:57 AM DIGITAL MARKETING EXECUTIVE) Pathologist [facility] HEPATITIS C ANTIBODY Non-React adithya Non-React adithya 06/25/2020 3:43 PM DIGITAL MARKETING EXECUTIVE [facility] Comment:Antibodies to HCV no t detected; does not exclude the possibility of exposure to HCV. Blood BLOOD SPECIMEN / Unknown Butterfly / Unknown 06/25/2020 7:57 AM DIGITAL MARKETING EXECUTIVE 06/25/2020 8:25 AM DIGITAL MARKETING EXECUTIVE Brandan Woodard MD SEND OUTS Performing Organization Address City/State/[facility] Co de Phone Number [facility] [address] [place] [address], * ANTI HIV 1/2 (06/25/2020 7:57 AM DIGITAL MARKETING EXECUTIVE) Pathologist [facility] HIV-1/HIV-2 ANTIBODY Non-Reacti ve Non-Reacti ve 06/25/2020 3:44 PM DIGITAL MARKETING EXECUTIVE [facility] Comment:HIV-1 p24 and HIV-1/ HIV-2 Ab not detected. Blood BLOOD SPECIMEN / Unknown Butterfly / Unknown 06/25/2020 7:57 AM DIGITAL MARKETING EXECUTIVE 06/25/2020 8:25 AM DIGITAL MARKETING EXECUTIVE Brandan Woodard MD [facility] [address] [place] [address], from Last 3 Months or Most Recently Relevant to Health Maintenance Advance Directives Documents on File Type Date Recorded Patient Cosmetics Supervisor Expl anation POLST 08/20/2020 5:18 PM POLST [...] Comments Code Status Discussion: Discussed Care Teams Haunted History Tour Guide Relationship Specialty Start Date End Date Zhane Stanley DO [address] [place] [place] [address] PCP - General Internal Medicine 09/08/20 Glenys Alcantar MD [address] [place] [address] Endocrinology 05/03/17 [facility], [facility] [address] [place] [address] 05/21/20 Samantha Grayson, PharmD [address] [place] [address] Pharmacist Medication Management Pharmacology 10/21/20
--- OUTSIDE RECORDS SUMMARY | 2024-03-30 09:18 | XMS_ITS | Encounter Summary ---
Author Organization [facility] Address [address] [place] [address] Care Team Providers Care Plant Sprayer Name Role Phone Zhane Stanley DO Primary Care Provider [phone] Encounter Details Date Type Department Care Team (Late st Contact Info) Description 03/06/2024 Documentation Only [facility] [address] [place] [address] Mike Edmondson MD [address] [place] [address] Social History Tobacco Use Types [...] filedocumented in this encounter Care Teams Plant Sprayer Relationship Specialty Start Date End Date Zhane Stanley DO [facility] [place] [address] PCP - General Family Medicine 07/27/23 documented as of this encounter
--- OUTSIDE RECORDS SUMMARY | 2024-03-30 09:18 | XMS_ITS | Encounter Summary ---
Author Organization [facility] [place] Address [address] [place] [address] Care Team Providers Care Scrap Iron Cutter Name Role Phone Zhane Stanley DO Primary Care Provider [phone] Reason for Visit * Reason Comments Follow-up Encounter Details Date Type Department Care Team (Latest Contact Info) Description 01/09/2024 1:30 PM CDT Office Visit [facility] [address] [place] [address] Mike Edmondson MD [address] [place] [address] Hypo-osmolality and hyponatremia (Primary Dx); [...] Timur Krishnamurthy Date of : 1970 Chart: [id number] PCP: Zhane Stanley DO Date of Service: [...] identified November 2010 at 39 mg/g (from [phone], values arranged between 80-150 mg/g). Recent values [...] kidney disease (HCC) Atherosclerotic heart disease of [place] coronary artery without angina pectoris Chronic kidney [...] * Assessment & Plan Note - Mike Edmnodson MD - 01/09/2024 1:31 PM CDTAssociated Problem(s): [...] (HCC) documented in this encounter Care Teams Scrap Iron Cutter Relationship Specialty Start Date End Date Zhane Stanley DO [address] [place] [address] PCP - General Family Medicine 07/27/23 documented as of this encounter
--- OUTSIDE RECORDS SUMMARY | 2024-03-30 09:18 | XMS_ITS | Clinical Summary ---
Author Organization [facility] [place] Address [address] [facility] [address] [place] [address] Phone Care Team Providers Care Prints And Drawings Curator Name Role Phone Zhane Stanley DO Primary Care Provider [phone] Allergies Active Allergy Reactions Criticality Noted Date [...] per PCP. Atherosclerotic heart diseas e of [place] coronary artery without angina pectoris 08/05/2023 Overview (08/05/2023): Status post coronary angiogram April 2011: 99% stenosis in the mid RCA, bare- metal stent deployment to manage. Assessment & Plan (08/08/2023 4:56 PM CDT): No symptoms currently. Chronic kidney disease, stage 2 (mild) Overview (01/09/2024): Baseline creatinine approximately 1-1.2 range for several years. Longstanding, documented albuminuria, first identified November 2010 at 39 mg/g (from [id number], values arranged between 80-150 mg/g). Recent values [...] pay at roughly $50 per day at [employer] website. If he is able to secure [...] 03/06/2024 Documentation Only [facility] [place] [address] [place] [address] Mike Edmondson MD 01/09/2024 1:30 PM CDT Office Visit [facility] [place] [address] [address] Mike Edmondson MD Hypo-osmolality and hyponatremia (Primary Dx); Chronic kidney disease, stage 2 (mild); Hypertensive chronic kidney disease, benign, with chronic kidney disease stage I through stage IV, or unspecified; Type 2 diabetes mellitus with diabetic chronic kidney disease (HCC) 01/04/2024 Orders Only [facility] [place] [place] [address] [address] Mike Edmondson MD Hypo-osmolality and hyponatremia from Last 3 Months Immunizations Name Administration [...] ALLINA from Last [address] [place] [address] [place] [phone] [place]ICAID [place] Care Teams Prints And Drawings Curator Relationship Specialty Start Date End Date Zhane Stanley DO [address] [place] [address] PCP - General Family Medicine 07/27/23
--- OUTSIDE RECORDS SUMMARY | 2024-03-30 09:18 | XMS_ITS | Encounter Summary ---
Author Organization [facility] Address [address] [place] [address] Care Team Providers Care Stave Inspector Name Role Phone Zhane Stanley DO Primary Care Provider [phone] Encounter Details Date Type Department Care Team (Late st Contact Info) Description 12/22/2023 Telephone [facility] [place] [address] [place] [address] Brisa Paulino [address] [place] [address] Social History Tobacco Use Types [...] if they would like to schedule with [facility] lab. documented in this encounter Plan of Treatment Not on file documented as of this encounter Visit Diagnoses Not on filedocumented in this encounter Care Teams Stave Inspector Relationship Specialty Start Date End Date Zhane Stanley DO [address] [place] [address] PCP - General Family Medicine 07/27/23 documented as of this encounter
--- OUTSIDE RECORDS SUMMARY | 2024-03-30 09:18 | XMS_ITS | Encounter Summary ---
Author Organization [facility] Address [address] [place] [address] Care Team Providers Care Javascript Application Developer Name Role Phone Zhane Stanley DO Primary Care Provider [phone] Encounter Details Date Type Department Care Team (Late st Contact Info) Description 01/04/2024 Orders Only [facility] [address] [place] [address] Mike Edmondson MD [address] [place] [address] Hypo-osmolality and hyponatremia Social History [...] hyponatremia documented in this encounter Care Teams Javascript Application Developer Relationship Specialty Start Date End Date Zhane Stanley DO [address] [place] [address] PCP - General Family Medicine 07/27/23 documented as of this encounter
--- OUTSIDE RECORDS SUMMARY | 2024-03-30 09:19 | XMS_ITS | Clinical Summary ---
Author Organization [facility] Address [address] [address] Care Team Providers Care Home Theater Installer Name Role Phone Needs Pcp, Assignment Primary Care Provider [phone] Source Comments You are receiving this document [...] for each transition of care or referral. [facility] Active Allergy Reactions Criticality Noted Date [...] a day. 1 Each 0 06/09/2016 Active [employer] PicksTOUCH ULTRA CONTROL solutionIndications :Uncontrolled type 2 diabetes [...] 80 MG tabletIndications:A SHD (arteriosclerotic heart disease) ([facility]),Hyperlipidemi a with target LDL less than 70 ([facility]) Take 1 tablet by mouth once daily 90 Tablet 3 08/10/2019 Active Additional Information Patient not taking.Reported on 08/28/2019 glucose 4 gram chewable tabletIndications:H ypoglycemia ([facility]) Chew and swallow 4 Tablets by mouth once as needed (Blood sugar less than 70). 30 Tablet 1 10/05/2019 Active insulin degludec 200 UNIT/ML SOPNIndications:Unc ontrolled type 2 diabetes mellitus with hyperglycemia ([facility]) Inject 32 Units subcutaneously daily. 12 mL 10/08/2019 Active amLODIPine (NORVASC) 10 MG tabletIndications:E ssential hypertension ([facility]) Take 1 Tablet by mouth daily. 90 Tablet 3 12/04/2019 Active Continuous Blood Gluc Sensor (FREESTYLE TALAT 14 DAY SENSOR) MISCIndications:Unc ontrolled type 2 diabetes mellitus with hyperglycemia ([facility]) Use as directed. Change every 14 days. 6 Each 4 12/04/2019 Active Continuous Blood Gluc Ceramic Products Sales Engineer (FREESTYLE TALAT 2 READER SYSTM) DEVIIndications:Unc ontrolled type 2 diabetes mellitus with hyperglycemia ([facility]) Use to scan blood sugars per recreation adviser instructions. 1 Each 12/04/2019 Active metFORMIN (GLUCOPHAGE) 500 MG tablet Take 2 Tablets by mouth two times a day with meals. 360 Tablet 3 01/09/2020 Active busPIRone (BUSPAR) 10 MG tabletIndications:A nxiety ([facility]) Take 3 Tablets by mouth two times [...] migh t be different from the original. Corporate Strategy Intern: Lesly Rodrigues [facility] [place] [phone] Care coordination focus: T2DM, financial resources Living situation: lives with spouse Important notes: SSDI, significant insulin resistance, regularly reaches Medicare Coverage Gap and cannot afford insulin Problem Noted Date Diagnosed Date Non-proliferative diabetic retinopathy 0 Hyponatremia 01/16/2018 Tinea versicolor 07/18/2015 Tobacco use disorder 10/26/2012 Anemia 05/02/2012 Overview (12/15/2016): Anemia, unspecified Microalbuminuria 02/04/2012 [place], old 09/16/2011 History of PTCA 09/16/2011 Overview [...] I disorder 09/15/2005 Overview (12/15/2016): LW Onset: [id number] ; Bipolar I Dis Resolved Problems Problem Noted Date Diagnosed Date Resolved Date Tobacco abuse 02/24/2016 12/18/2018 ACS (acute coronary syndrome) 10/25/2012 02/16/2017 Mass on back 05/02/2012 10/25/2012 Health long term, active care coordination 03/22/2012 07/27/2018 Overview (11/26/2015): Corporate Strategy Intern: JOSETTE Yip [phone] Care coordination focus: T2DM, financial resources Living situation: lives with spouse Important notes: SSDI, significant insulin resistance, uses Relion insulin, commonly reaches Medicare Coverage Gap See care plan under Chart Review > Misc Reports > AMB H CARE PLAN REPORT Assessment & Plan (09/01/2017 11:39 AM CDT): Corporate Strategy Intern: Lesly Rodrigues [facility] [phone] Care coordination focus: mental health Living situation: Lives with Important notes: mh case management starting LFTs abnormal 02/02/2012 10/25/2012 S/P angioplasty with stent 05/26/2011 0 10/25/2012 Overview (11/26/2015): Apr 2011 Plantar wart 05/26/2011 10/25/2012 Acute [place] 05/01/2011 02/01/2012 Hypertriglyceridemia 12/11/2010 013 Overview (11/26/2015): [...] mos) 03/14/2013 Influenza IIV4 (Quadrivalent ) 0.5mL (36353) 01/07/2020,01/16/2018,02/16/2017,2015,03/27/2015,01/16/2014,03/14/2013 Influenza, Unspecified Formulation 08/23,03/14/2013,03/17/2009,2006,03/23/2006,05/19/2005,03/12/2002 PPSV23 (Pneumovax) 10/08/2009 TB Skin Test (PPD) 06/11/2019,02/05/2016, 016 TDAP (ADACEL) 09/15/2005 TDAP (BOOSTRIX) 11/04/2015 Td 11/12/1998 Social History Tobacco Use Types Packs/Day Years Used Date Smoking Tobacco: Every Day Cigarettes 1 39.9 Started: 05/17/1984 Smokeless Tobacco: Former Quit: 10/25/2012 [...] Comments Blood Pressure 132/88 06/09/2020 4:43 PM PRODUCTION ASSEMBLY SUPERVISOR Pulse 99 06/09/2020 4:43 PM PRODUCTION ASSEMBLY SUPERVISOR Temperature 38.2 C (100.8 F) 05/02/2019 11:31 AM PRODUCTION ASSEMBLY SUPERVISOR Respiratory Rate 16 03/07/2013 2:52 PM PRODUCTION ASSEMBLY SUPERVISOR Oxygen Saturation 97% 10/27/2012 3:52 PM CDT Inhaled Oxygen Concentration - - Weight 88.9 kg (196 lb) 06/09/2020 4:43 PM PRODUCTION ASSEMBLY SUPERVISOR Height 177.8 cm (5' 10) 12/04/2019 [...] ([facility]) HIV ANTIBODY Routine 03/12/2002 12:48 PM PRODUCTION ASSEMBLY SUPERVISOR HEPATITIS C ANTIBODY, WITH REFLEX Routine 03/12/2002 12:48 PM PRODUCTION ASSEMBLY SUPERVISOR from Last 3 Months or Most Recently Relevant to Health Maintenance Results * (ABNORMAL) Microalb/Creat Ratio - in 3 months (12/04/2019 10:10 AM CDT) Albumin, Urine, Random 351.2 mg/L 12/04/2019 3:54 PM CDT [facility] Creatinine, Urine, Random 106 >20 mg/dL 12/04/2019 3:54 PM CDT [facility] Albumin/Creati nine Ratio, Urine, Random 331(H) <30 mg/g 12/04/2019 3:54 PM CDT [facility] Urine Non-blood Collection / Unknown 12/04/2019 10:10 AM CDT 12/04/2019 10:10 AM CDT Gagandeep Hinojosa MD LAB_1 Performing Organization Address City/[facility]/ZIP Co de Phone Number [facility] [address] [place] [address], [facility] [phone] * (ABNORMAL) POCT Glycosylated Hemoglobin (HB A1C) - in 3 months (12/04/2019 10:06 AM CDT) Hemoglobin A1C (Rapid) 11.3(H) <=5.6 % 12/04/2019 10:15 AM CDT [facility] Blood Venipuncture / Unknown 12/04/2019 10:06 AM CDT 12/04/2019 10:06 AM CDT Narrative [facility] - 12/04/2019 10:15 AM CDT This Rapid A1c test is designed for monitoring patients with an established diagnosis of diabetes mellitus. This rapid method is not suitable to establish the initial diagnosis of diabetes mellitus. Performed using Point of Care Instrumentation. Gagandeep Hinojosa MD LAB_1 Performing Organization Address City/[facility]/ZIP Co de Phone Number [facility] [address] [place] [address], [facility] [phone] * (ABNORMAL) Lipid Panel and Direct LDL(If Needed) - in 3 months (12/04/2019 10:06 AM CDT) Cholesterol 116 0 - 199 mg/dL 12/04/2019 4:03 PM T [facility] Triglyceride 137 <=149 mg/dL 12/04/2019 4:03 PM T [facility] HDL Cholesterol 35(L) >=40 mg/dL 0 4:03 PM T [facility] LDL, Calculated 54 <130 mg/dL 0 4:03 PM T [facility] Non HDL Chol, Calculated 81 mg/dL 12/04/2019 4:03 PM T [facility] Cholesterol/HDL Ratio 3.3 12/04/2019 4:03 PM T [facility] Hours Fasting 12 12/04/2019 4:03 PM CDT [facility] Blood Venipuncture / Unknown 12/04/2019 10:06 AM CDT 12/04/2019 10:06 AM CDT Gagandeep Hinojosa MD LAB_1 [facility] [address] [place] [address], [facility] [phone] [facility] [address] [place] [address] [place] [address], [facility] [phone] * Creatinine / GFR - in 3 months (12/04/2019 10:06 AM CDT) Creatinine 0.80 0.73 - 1.18 mg/dL 12/04/2019 4:03 PM T [facility] GFR, Estimated >60 >60 mL/min/1.7 3m2 12/04/2019 4:03 PM T [facility] Blood Venipuncture / Unknown 12/04/2019 10:06 AM CDT 12/04/2019 10:06 AM CDT Gagandeep Hinojosa MD LAB_1 [facility] [address] [place] [address], [facility] [phone] * HIV Antibody (03/12/2002 12:48 PM PRODUCTION ASSEMBLY SUPERVISOR) HIV 1/HIV 2 Non Reac Non Reac HP CONVERSION 03/12/2002 12:4 8 PM PRODUCTION ASSEMBLY SUPERVISOR Antonio Jerez MD LAB_1 HP CONVERSION * Hepatitis C Antibody, with Reflex (03/12/2002 12:48 PM PRODUCTION ASSEMBLY SUPERVISOR) Hepatitis C Antibody Non Reac Non Reac HP CONVERSION 03/12/2002 12:4 8 PM PRODUCTION ASSEMBLY SUPERVISOR Antonio Jerez MD LAB_1 Performing Organization Address City/[facility]/ZIP Co de Phone Number HP CONVERSION from [...] 4:27 AM 05/01/2011 12:21 PM Care Teams Home Theater Installer Relationship Specialty Start Date End Date Needs Pcp, [place] [address] PCP - General 01/24/24 Vane Zarate Psychiatrist Psychiatry 03/22/12 [facility] Psychotherapist 08/04/17 [facility] Data Architect Manager 09/13/17
== END 2024-03-30 09:17 | disposition home or self-care (01) ==
LOC: WOUND 09:16
PROVIDERS: PCP Family Medicine; Visit Provider Nurse Practitioner Family
DX: E11.621 Type 2 diabetes mellitus with foot ulcer (principal); I70.234 Atherosclerosis of native arteries of right leg with ulceration of heel and midfoot; L97.412 Non-pressure chronic ulcer of right heel and midfoot with fat layer exposed; L97.522 Non-pressure chronic ulcer of other part of left foot with fat layer exposed; Z79.4 Long term (current) use of insulin; Z79.84 Long term (current) use of oral hypoglycemic drugs
CPT/HCPCS: 11042; 97597

== ENCOUNTER 2024-04-06 09:37 | Outpatient (CLI) | payer MEDICARE, MEDICAID, SELFPAY | END 2024-04-06 09:38 | disposition home or self-care (01) | LOC: WOUND 09:37 | PROVIDERS: PCP Family Medicine; Visit Provider Nurse Practitioner Family | DX: E11.621 Type 2 diabetes mellitus with foot ulcer (principal); L97.412 Non-pressure chronic ulcer of right heel and midfoot with fat layer exposed; L97.522 Non-pressure chronic ulcer of other part of left foot with fat layer exposed; Z79.4 Long term (current) use of insulin; Z79.84 Long term (current) use of oral hypoglycemic drugs | CPT/HCPCS: 11042 ==

== ENCOUNTER 2024-04-11 09:55 | Outpatient (CLI) | payer MEDICARE, MEDICAID, SELFPAY | END 2024-04-11 09:56 | disposition home or self-care (01) | LOC: WOUND 09:57 | PROVIDERS: PCP Family Medicine; Visit Provider Nurse Practitioner Family | DX: E11.621 Type 2 diabetes mellitus with foot ulcer (principal); L97.522 Non-pressure chronic ulcer of other part of left foot with fat layer exposed; L97.412 Non-pressure chronic ulcer of right heel and midfoot with fat layer exposed; Z79.4 Long term (current) use of insulin; Z79.84 Long term (current) use of oral hypoglycemic drugs | CPT/HCPCS: 11042 ==

== ENCOUNTER 2024-04-12 10:43 | Emergency (ER) | payer MEDICARE, MEDICAID, SELFPAY ==
[2024-04-12 10:48] VITALS: BP 146/88; PULSE 95; RESP 16; TEMP 35.8; O2SAT 97; BMI 28.0
[2024-04-12] MEDS: LORazepam 1 MG TABLET PO (11:14)
--- NOTE | 2024-04-12 12:23 | ED_ITS ---
HPI - Anxiety General Chief Complaint: Anxiety Stated Complaint: Anxiety/Panic attack Time Seen by Provider: 04/12/24 10:59 History of Present Illness HPI narrative: This 54-year-old male comes in because of worsening anxiety symptoms. This is not a new matter for him but it has worsened over the past month or so. He states that he is taking his medications as prescribed. He is not using any street drugs or alcohol. He does not report any triggers that have made things worse but does state that his grandmother recently. He states that it was much more difficult when his mother a couple years ago. He states that he is sleeping well at night. He restarted Seroquel about 9 months ago and did well with this but now is having anxiety symptoms primarily in the morning. He states that he feels better by noon typically. He is also taking a divalproex, BuSpar own, and Xanax as prescribed. He does not report any hallucinations or suicidality. Related Data Home Medications ?Medication ?Instructions ?Recorded ?Confirmed alprazolam 0.5 mg tablet 0.5 mg PO BID 02/10/22 12/30/23 aspirin 81 mg tablet,delayed 81 mg PO DAILY 02/10/22 12/30/23 release (Ecotrin Low Strength) buspirone 10 mg tablet 30 mg PO BID 02/10/22 12/30/23 divalproex 500 mg tablet,delayed 1,000 mg PO BID 02/10/22 12/30/23 release empagliflozin 10 mg tablet 10 mg PO DAILY 02/10/22 12/30/23 (Jardiance) famotidine 20 mg tablet 20 mg PO BID 02/10/22 12/30/23 gabapentin 300 mg capsule 900 mg PO TID 02/10/22 12/30/23 insulin aspart U-100 100 unit/mL 10 unit subcut .tid WITH MEALS 02/10/22 12/30/23 (3 mL) subcutaneous pen (Novolog FlexPen U-100 Insulin aspart) insulin degludec 200 unit/mL (3 28 unit subcut QHS 02/10/22 12/30/23 mL) subcutaneous pen (Tresiba FlexTouch U-200 insulin) metformin 1,000 mg tablet 1,000 mg PO BID 02/10/22 12/30/23 metoprolol succinate 50 mg 50 mg PO DAILY 02/10/22 12/30/23 tablet,extended release 24 hr multivitamin (Daily Multi-Vitamin 1 tab PO DAILY 02/10/22 12/30/23 tablet) quetiapine 200 mg tablet 50 mg PO BID PRN 02/10/22 12/30/23 rosuvastatin 20 mg tablet 20 mg PO HS 02/10/22 12/30/23 nicotine (polacrilex) 2 mg buccal 2 mg buccal Q8H PRN 08/25/22 12/30/23 mini lozenge paliperidone palmitate 39 mg/0.25 234 mg IM Q3W 09/29/22 12/30/23 mL intramuscular syringe (Invega Sustenna) benzonatate 100 mg capsule 100 mg PO TID PRN 07/05/23 12/30/23 calcium carbonate (Tums Freshers) 500 mg PO TID PRN 07/05/23 12/30/23 diphenhydramine HCl 25 mg capsule 25 mg PO Q6-8H PRN 07/05/23 12/30/23 (Banophen) guaifenesin 100 mg/5 mL oral 100 mg PO Q6H PRN 07/05/23 12/30/23 liquid (Adult Tussin Chest Congestion) lisinopril 5 mg tablet 5 mg PO DAILY 07/05/23 12/30/23 loperamide 2 mg capsule 2 mg PO Q6H PRN 07/05/23 12/30/23 (Anti-Diarrheal (loperamide)) melatonin 5 mg disintegrating 5 mg PO PRN 07/05/23 12/30/23 tablet ondansetron HCl 4 mg tablet 4 mg PO Q8H PRN 07/05/23 12/30/23 polyethylene glycol 3350 17 17 g PO DAILY PRN 07/05/23 12/30/23 gram/dose oral powder (ClearLax) trihexyphenidyl 5 mg tablet 5 mg PO BID 07/05/23 12/30/23 Previous Rx's ?Medication ?Instructions ?Recorded furosemide 20 mg tablet 20 mg PO DAILY #30 tabs 02/15/22 quetiapine 50 mg tablet (Seroquel) 50 mg PO BID #30 tabs 07/05/23 quetiapine 50 mg tablet (Seroquel) 50 mg PO QHS #30 tabs 04/12/24 Allergies Allergy/AdvReac Type Severity Reaction Status Date / Time aripiprazole (From Abilify) Allergy Mild Verified 12/30/23 09:06 bupropion Allergy Mild Verified 12/30/23 09:06 haloperidol (From Haldol) Allergy Mild Verified 12/30/23 09:06 nitroglycerin Allergy Mild Verified 12/30/23 09:06 thiothixene (From Navane) Allergy Mild Verified 12/30/23 09:06 trifluoperazine (From Allergy Mild tremors, Verified 12/30/23 09:06 Stelazine) seizure ziprasidone Allergy Mild Verified 12/30/23 09:06 Review of Systems Status of ROS: Reports: 10 or more systems reviewed and unremarkable except as noted in History and below Narrative: Constitutional: No fevers, no weight gain or loss. Eyes: No discharge. No vision changes. HENT: No congestion, no sore throat, no ear pain. Cardiovascular: No chest pain, no palpitations. Respiratory: No shortness of breath, no wheezes, no cough. Gastrointestinal: No abdominal pain, no vomiting, no diarrhea. Genitourinary: No dysuria, no hematuria. Musculoskeletal: Normal range of motion. Skin: No rashes, no pruritis. Neurological: No dizziness, weakness, sensory change, speech change. Endo/Heme/Allergies: No bruising or bleeding. No polydipsia. Pysch: no suicidality no insomnia. Anxiety symptoms as described above. All other systems reviewed and are negative. [facility] Medical History History of myocardial infarction ?I25.2 - Old myocardial infarction (ICD-10) ASHD (arteriosclerotic heart disease) (05/04/11) ?I25.10 - Atherosclerotic heart disease of [place] coronary artery without angina pectoris (ICD-10) Type 2 diabetes mellitus, uncontrolled (12/11/10) Tinea versicolor (07/18/15) ?B36.0 - Pityriasis versicolor (ICD-10) Obesity, Class I, BMI 30-34.9 (09/16/11) ?E66.9 - Obesity, unspecified (ICD-10) Nonspecific abnormal results of liver function study (12/22/09) ?R94.5 - Abnormal results of liver function studies (ICD-10) Non-proliferative diabetic retinopathy (05/02/19) ?E11.3299 - Type 2 diabetes mellitus with mild nonproliferative diabetic retinopathy without macular edema, unspecified eye (ICD-10) Microalbuminuria (02/04/12) ?R80.9 - Proteinuria, unspecified (ICD-10) [place], old (09/16/11) ?I25.2 - Old myocardial infarction (ICD-10) Hyperlipidemia with target LDL less than 70 (06/08/11) ?E78.5 - Hyperlipidemia, unspecified (ICD-10) Erectile dysfunction (01/22/11) ?N52.9 - Male erectile dysfunction, unspecified (ICD-10) Dermatophytosis of body (09/04/10) ?B35.4 - Tinea corporis (ICD-10) Coronary atherosclerosis (12/22/09) ?I25.10 - Atherosclerotic heart disease of [place] coronary artery without angina pectoris (ICD-10) Anemia (05/02/12) ?D64.9 - Anemia, unspecified (ICD-10) Lower extremity edema ?R60.0 - Localized edema (ICD-10) Diabetic retinopathy ?E11.319 - Type 2 diabetes mellitus with unspecified diabetic retinopathy without macular edema (ICD-10) Vitamin D deficiency ?E55.9 - Vitamin D deficiency, unspecified (ICD-10) Generalized anxiety disorder ?F41.1 - Generalized anxiety disorder (ICD-10) History of seizure ?Z87.898 - Personal history of other specified conditions (ICD-10) Diabetic peripheral neuropathy ?E11.42 - Type 2 diabetes mellitus with diabetic polyneuropathy (ICD-10) Coronary artery disease ?I25.10 - Atherosclerotic heart disease of [place] coronary artery without angina pectoris (ICD-10) Hypertension ?I10 - Essential (primary) hypertension (ICD-10) Diabetes mellitus type 2 in obese ?E11.69 - Type 2 diabetes mellitus with other specified complication (ICD-10) ?E66.9 - Obesity, unspecified (ICD-10) Tobacco use disorder ?F17.200 - Nicotine dependence, unspecified, uncomplicated (ICD-10) Hyponatremia ?E87.1 - Hypo-osmolality and hyponatremia (ICD-10) Dyslipidemia ?E78.5 - Hyperlipidemia, unspecified (ICD-10) Bipolar 1 disorder ?F31.9 - Bipolar disorder, unspecified (ICD-10) Surgical History Status post angioplasty with stent ?Z95.820 - Peripheral vascular angioplasty status with implants and grafts (ICD-10) History of PTCA (09/16/11) ?Z98.61 - Coronary angioplasty status (ICD-10) History of coronary artery stent placement ?Z95.5 - Presence of coronary angioplasty implant and graft (ICD-10) Family History Father Alcohol dependence Diabetes Coronary artery disease Sister Alcohol dependence Diabetes Mother Pulmonary fibrosis Social History Narrative: 52-year-old male resident of [facility]. He has lived there since earlier in 2020. Code status is full. Healthcare power of attorney recruiter would be his father, Farhan Krishnamurthy. Other close family is his sister. He has been smoking about a pack of cigarettes a day since age 16. He does not drink alcohol. He does not use recreational drugs. Highest level of school completed/degree received: some college, no degree Smoking Status: Former smoker Do you use any of these nicotine containing products: Smokeless Tobacco Second hand tobacco smoke exposure: No How often do you have a drink containing alcohol: never AUDIT-C Alcohol total score: 0 Non-prescribed substance use: denies use Caffeine: Yes (2 cans pop daily) Do you think of yourself as: straight/heterosexual Gender Identity: male service: No Exam Narrative: Exam Narrative: Constitutional: Well-developed, well-nourished, no acute distress. HEENT: Normocephalic, atraumatic. Neck: Normal range of motion. Nontender. Supple. Heart: Regular. No murmurs. Normal rate. Intact distal pulses. Lungs: Clear to auscultation. No chest discomfort. No wheezes, rhonchi, or rales. Abdomen: Normal bowel sounds. Nontender. No rebound tenderness. Genitalia: Deferred. Back: No midline tenderness. Normal range of motion. Extremities: Normal range of motion. No injury. Skin: Intact. No rash. Warm. No erythema or pallor. Neurologic: No altered sensation. No weakness. Alert and oriented. Psychiatric: No suicidality. No insomnia. He is pleasant and cooperative but does appear fidgety and anxious. Nursing notes and vitals signs are reviewed. Const: Vital Signs, click to edit/add: Vital Signs - 24 hr 04/12/24 10:48 Temperature 96.5 F L Pulse Rate [Pulse Oximeter] 95 Respiratory Rate 16 Blood Pressure [Ri ght Upper Arm] 146/88 H Pulse Oximetry 97 Oxygen Delivery Me thod Room Air Course Vital Signs Vital signs: Initial Vital Signs Temperature 96.5 F L 04/12/24 10:48 Temperature Source Temporal Artery Scan 04/12/24 10:48 Pulse Rate 95 04/12/24 10:48 Respiratory Rate 16 04/12/24 10:48 Blood Pressure 146/88 H 04/12/24 10:48 Blood Pressure Mean 107 H 04/12/24 10:48 Blood Pressure Position Sitting 04/12/24 10:48 Pulse Oximetry 97 04/12/24 10:48 Oxygen Delivery Method Room Air 04/12/24 10:48 Vital Signs Temperature 96.5 F L 04/12/24 10:48 Pulse Rate 95 04/12/24 10:48 Respiratory Rate 16 04/12/24 10:48 Blood Pressure 146/88 H 04/12/24 10:48 Pulse Oximetry 97 04/12/24 10:48 Oxygen Delivery Method Room Air 04/12/24 10:48 Temperature 96.5 F L 04/12/24 10:48 Pulse Rate 95 04/12/24 10:48 Respiratory Rate 16 04/12/24 10:48 Blood Pressure 146/88 H 04/12/24 10:48 Pulse Oximetry 97 04/12/24 10:48 Oxygen Delivery Method Room Air 04/12/24 10:48 Medications Administered Medications: Discontinued Medications Generic Name Dose Route Start Last Admin Trade Name Freq PRN Reason Stop Dose Admin Gabapentin 900 mg 04/12/24 13:30 04/12/24 13:33 Gabapentin 300 Mg Capsule PO 04/12/24 13:31 900 mg ONCE ONE Administration Lidocaine/Aluminum/Magnesium/Simeth 30 ml 04/12/24 12:22 04/12/24 12:31 Gi Cocktail (Visc Lido/Antacid) 30 Ml PO 04/12/24 12:23 30 ml ONCE ONE Administration Lorazepam 1 mg 04/12/24 11:10 04/12/24 11:14 Lorazepam 1 Mg Tablet PO 04/12/24 11:11 1 mg ONCE ONE Administration Ondansetron HCl 4 mg 04/12/24 12:22 04/12/24 12:31 Ondansetron Odt 4 Mg Tab PO 04/12/24 12:23 4 mg ONCE ONE Administration MDM - Anxiety MDM Narrative Medical decision making narrative: This 54-year-old male comes in because of anxiety symptoms. He states that he has been taking his medications. He does not report any suicidal ideations and is not using any other street drugs or alcohol. He seems to be doing well with Seroquel 200 mg taken at night and reports that he sleeps well at night. Despite this he is having anxiety symptoms that seemed to be more prevalent during the morning by his report. I did consult with [facility] and I stated that it seemed reasonable to add 50 mg of Seroquel in the morning or as needed. This plan is endorsed by [facility] and agreeable with the patient. He did receive 2 tablets that he can go home with and I provided prescription for extra dosing going forward. He plans to follow-up with his psychiatrist regarding his medications. Discharge Plan Discharge Clinical Impression: Acute anxiety Patient Disposition: Home, Self-Care Condition: Stable Additional Instructions: Continue current plans. Okay to take additional 50 mg of Seroquel as needed for management of anxiety symptoms. Follow up with primary physician for ongoing plans. Prescriptions: New quetiapine [Seroquel] 50 mg tablet 50 mg PO QHS Qty: 30 2RF No Action nicotine (polacrilex) 2 mg mini lozenge 2 mg buccal Q8H PRN Invega Sustenna 39 mg/0.25 mL syringe 234 mg IM Q3W alprazolam 0.5 mg tablet 0.5 mg PO BID aspirin [Ecotrin Low Strength] 81 mg tablet,delayed release (DR/EC) 81 mg PO DAILY buspirone 10 mg tablet 30 mg PO BID divalproex 500 mg tablet,delayed release (DR/EC) 1,000 mg PO BID famotidine 20 mg tablet 20 mg PO BID gabapentin 300 mg capsule 900 mg PO TID Jardiance 10 mg tablet 10 mg PO DAILY metformin 1,000 mg tablet 1,000 mg PO BID metoprolol succinate 50 mg tablet extended release 24 hr 50 mg PO DAILY multivitamin [Daily Multi-Vitamin] Tablet 1 tab PO DAILY insulin aspart U-100 [Novolog FlexPen U-100 Insulin] 100 unit/mL (3 mL) insulin pen 10 unit subcut .tid WITH MEALS quetiapine 200 mg tablet 50 mg PO BID PRN rosuvastatin 20 mg tablet 20 mg PO HS insulin degludec [Tresiba FlexTouch U-200] 200 unit/mL (3 mL) insulin pen 28 unit subcut QHS loperamide [Anti-Diarrheal (loperamide)] 2 mg capsule 2 mg PO Q6H PRN diphenhydramine HCl [Banophen] 25 mg capsule 25 mg PO Q6-8H PRN benzonatate 100 mg capsule 100 mg PO TID PRN calcium carbonate [Tums Freshers] 200 mg calcium (500 mg) tablet,chewable 500 mg PO TID PRN polyethylene glycol 3350 [ClearLax] 17 gram/dose powder 17 g PO DAILY PRN guaifenesin [Adult Tussin Chest Congestion] 100 mg/5 mL liquid 100 mg PO Q6H PRN melatonin 5 mg tablet,disintegrating 5 mg PO PRN Rx Instructions: ER TABLET ondansetron HCl 4 mg tablet 4 mg PO Q8H PRN lisinopril 5 mg tablet 5 mg PO DAILY trihexyphenidyl 5 mg tablet 5 mg PO BID quetiapine [Seroquel] 50 mg tablet 50 mg PO BID Qty: 30 0RF furosemide 20 mg tablet 20 mg PO DAILY Qty: 30 2RF Follow Up/Referrals: Zhane Stanley DO [Primary Care Provider] - Stand Alone Forms: [facility] Info Instructions
[2024-04-12] MEDS: GI COCKTAIL (VISC LIDO/ANTACID) 30 ML PO (12:31)
[2024-04-12] MEDS: ONDANSETRON ODT 4 MG TAB PO (12:31)
[2024-04-12] MEDS: GABAPENTIN 300 MG CAPSULE 900 MG PO (13:33)
[2024-04-12] MEDS: QUETIAPINE 25 MG TABLET 50 MG PO (14:09)
[2024-04-12] MEDS: QUETIAPINE 100 MG TABLET 50 MG PO (14:10)
== END 2024-04-12 14:17 | disposition home or self-care (01) ==
PROVIDERS: Emergency Provider Emergency Medicine Emergency Medical Services; PCP Family Medicine
DX: F41.9 Anxiety disorder, unspecified (principal)
CPT/HCPCS: 99283; 99284; A9270

== ENCOUNTER 2024-04-13 10:22 | Outpatient (CLI) | payer MEDICARE, MEDICAID, SELFPAY | END 2024-04-13 10:23 | disposition home or self-care (01) | LOC: WOUND 10:22 | PROVIDERS: PCP Family Medicine; Visit Provider Nurse Practitioner Family | DX: E11.621 Type 2 diabetes mellitus with foot ulcer (principal); L97.522 Non-pressure chronic ulcer of other part of left foot with fat layer exposed; Z79.4 Long term (current) use of insulin; Z79.84 Long term (current) use of oral hypoglycemic drugs | CPT/HCPCS: 29445 ==

== ENCOUNTER 2024-04-20 09:18 | Outpatient (CLI) | payer MEDICARE, MEDICAID, SELFPAY | END 2024-04-20 09:19 | disposition home or self-care (01) | LOC: WOUND 09:19 | PROVIDERS: PCP Family Medicine; Visit Provider Nurse Practitioner Family | DX: E11.621 Type 2 diabetes mellitus with foot ulcer (principal); L97.422 Non-pressure chronic ulcer of left heel and midfoot with fat layer exposed; L97.411 Non-pressure chronic ulcer of right heel and midfoot limited to breakdown of skin; Z79.4 Long term (current) use of insulin | CPT/HCPCS: 11042; 97597 ==

== ENCOUNTER 2024-04-27 12:50 | Outpatient (CLI) | payer MEDICARE, MEDICAID, SELFPAY | END 2024-04-27 12:51 | disposition home or self-care (01) | LOC: WOUND 12:51 | PROVIDERS: PCP Family Medicine; Visit Provider Nurse Practitioner Family | DX: E11.621 Type 2 diabetes mellitus with foot ulcer (principal); L97.522 Non-pressure chronic ulcer of other part of left foot with fat layer exposed; R41.82 Altered mental status, unspecified; Z79.4 Long term (current) use of insulin; Z79.84 Long term (current) use of oral hypoglycemic drugs | CPT/HCPCS: 11042 ==

== ENCOUNTER 2024-04-27 13:48 | Inpatient (IN) | payer MEDICARE, MEDICAID, SELFPAY ==
[2024-04-27] VITALS (10 sets, daily range): BP systolic 92–159; BP diastolic 59–78; PULSE 73–88; RESP 14–22; TEMP 37–37.9; O2SAT 92–99; BMI 27.3; BMI 28.2
--- OUTSIDE RECORDS SUMMARY | 2024-04-27 13:50 | XMS_ITS | Clinical Summary ---
Author Organization [facility] Address [address], [place] [address] Care Team Providers Care Bike Technician Name Role Phone Needs Pcp, Assignment Primary Care Provider [phone] Source Comments You are receiving this document [...] for each transition of care or referral. [facility] Allergies Active Allergy Reactions Criticality Noted Date [...] a day. 1 Each 0 06/09/2016 Active Perfect PizzaTOUCH ULTRA CONTROL solutionIndications :Uncontrolled type 2 diabetes [...] 80 MG tabletIndications:A SHD (arteriosclerotic heart disease) (PSYCHIATRIC),Hyperlipidemi a with target LDL less than 70 (PSYCHIATRIC) Take 1 tablet by mouth once daily 90 Tablet 3 08/10/2019 Active Additional Information Patient not taking.Reported on 08/28/2019 glucose 4 gram chewable tabletIndications:H ypoglycemia (PSYCHIATRIC) Chew and swallow 4 Tablets by mouth once as needed (Blood sugar less than 70). 30 Tablet 1 10/05/2019 Active insulin degludec 200 UNIT/ML SOPNIndications:Unc ontrolled type 2 diabetes mellitus with hyperglycemia (PSYCHIATRIC) Inject 32 Units subcutaneously daily. 12 mL 10/08/2019 Active amLODIPine (NORVASC) 10 MG tabletIndications:E ssential hypertension (PSYCHIATRIC) Take 1 Tablet by mouth daily. 90 Tablet 3 12/04/2019 Active Continuous Blood Gluc Sensor (FREESTYLE TALAT 14 DAY SENSOR) MISCIndications:Unc ontrolled type 2 diabetes mellitus with hyperglycemia (PSYCHIATRIC) Use as directed. Change every 14 days. 6 Each 4 12/04/2019 Active Continuous Blood Gluc Capacitor Inspector (FREESTYLE TALAT 2 READER SYSTM) DEVIIndications:Unc ontrolled type 2 diabetes mellitus with hyperglycemia (PSYCHIATRIC) Use to scan blood sugars per bow string maker instructions. 1 Each 12/04/2019 Active metFORMIN (GLUCOPHAGE) 500 MG tablet Take 2 Tablets by mouth two times a day with meals. 360 Tablet 3 01/09/2020 Active busPIRone (BUSPAR) 10 MG tabletIndications:A nxiety (PSYCHIATRIC) Take 3 Tablets by mouth two times [...] migh t be different from the original. Grain Roaster: Lesly Rodrigues [facility] [place]za [phone] Care coordination focus: T2DM, financial resources Living situation: lives with spouse Important notes: SSDI, significant insulin resistance, regularly reaches Medicare Coverage Gap and cannot afford insulin Problem Noted Date Diagnosed Date Non-proliferative diabetic retinopathy 0 Hyponatremia 01/16/2018 Tinea versicolor 07/18/2015 Tobacco use disorder 10/26/2012 Anemia 05/02/2012 Overview (12/15/2016): Anemia, unspecified Microalbuminuria 02/04/2012 IN, old 09/16/2011 History of PTCA 09/16/2011 Overview [...] I disorder 09/15/2005 Overview (12/15/2016): LW Onset: [id number] ; Bipolar I Dis Resolved Problems Problem Noted Date Diagnosed Date Resolved Date Tobacco abuse 02/24/2016 12/18/2018 ACS (acute coronary syndrome) 10/25/2012 02/16/2017 Mass on back 05/02/2012 10/25/2012 Health residential, active care coordination 03/22/2012 07/27/2018 Overview (11/26/2015): Grain Roaster: JOSETTE Yip [phone] Care coordination focus: T2DM, financial resources Living situation: lives with spouse Important notes: SSDI, significant insulin resistance, uses Relion insulin, commonly reaches Medicare Coverage Gap See care plan under Chart Review > Misc Reports > AMB H CARE PLAN REPORT Assessment & Plan (09/01/2017 11:39 AM CDT): Grain Roaster: Lesly Rodrigues [facility] [phone] Care coordination focus: mental health Living situation: Lives with Important notes: mh case management starting LFTs abnormal 02/02/2012 10/25/2012 S/P angioplasty with stent 05/26/2011 0 10/25/2012 Overview (11/26/2015): Apr 2011 Plantar wart 05/26/2011 10/25/2012 Acute IN 05/01/2011 02/01/2012 Hypertriglyceridemia 12/11/2010 013 Overview (11/26/2015): [...] mos) 03/14/2013 Influenza IIV4 (Quadrivalent ) 0.5mL (29799) 01/07/2020,01/16/2018,02/16/2017,2015,03/27/2015,01/16/2014,03/14/2013 Influenza, Unspecified Formulation 08/23,03/14/2013,03/17/2009,2006,03/23/2006,05/19/2005,03/12/2002 PPSV23 (Pneumovax) [...] Comments Blood Pressure 132/88 06/09/2020 4:43 PM PROFESSIONAL ORGANIZER Pulse 99 06/09/2020 4:43 PM PROFESSIONAL ORGANIZER Temperature 38.2 C (100.8 F) 05/02/2019 11:31 AM PROFESSIONAL ORGANIZER Respiratory Rate 16 03/07/2013 2:52 PM PROFESSIONAL ORGANIZER Oxygen Saturation 97% 10/27/2012 3:52 PM CDT Inhaled Oxygen Concentration - - Weight 88.9 kg (196 lb) 06/09/2020 4:43 PM PROFESSIONAL ORGANIZER Height 177.8 cm (5' 10) 12/04/2019 10:49 [...] (HRC) HIV ANTIBODY Routine 03/12/2002 12:48 PM PROFESSIONAL ORGANIZER HEPATITIS C ANTIBODY, WITH REFLEX Routine 03/12/2002 12:48 PM PROFESSIONAL ORGANIZER from Last 3 Months or Most Recently Relevant to Health Maintenance Results * (ABNORMAL) Microalb/Creat Ratio - in 3 months (12/04/2019 10:10 AM CDT) Albumin, Urine, Random 351.2 mg/L 12/04/2019 3:54 PM CDT [facility] Creatinine, Urine, Random 106 >20 mg/dL 12/04/2019 3:54 PM CDT [facility] Albumin/Creati nine Ratio, Urine, Random 331(H) <30 mg/g 12/04/2019 3:54 PM CDT [facility] Urine Non-blood Collection / Unknown 12/04/2019 10:10 AM CDT 12/04/2019 10:10 AM CDT Gagandeep Hinojosa MD LAB_1 Performing Organization Address City/[facility]/ZIP Co de Phone Number [facility] [address] [place] [address], [place] [phone] * (ABNORMAL) POCT Glycosylated Hemoglobin (HB A1C) - in 3 months (12/04/2019 10:06 AM CDT) Hemoglobin A1C (Rapid) 11.3(H) <=5.6 % 12/04/2019 10:15 AM CDT [facility] Blood Venipuncture / Unknown 12/04/2019 10:06 AM CDT 12/04/2019 10:06 AM CDT Narrative [facility] - 12/04/2019 10:15 AM CDT This Rapid A1c test is designed for monitoring patients with an established diagnosis of diabetes mellitus. This rapid method is not suitable to establish the initial diagnosis of diabetes mellitus. Performed using Point of Care Instrumentation. Gagandeep Hinojosa MD LAB_1 Performing Organization Address [facility]/ZIP Co de Phone Number [facility] [address] [place] [address], [place] [phone] * (ABNORMAL) Lipid Panel and Direct LDL(If Needed) - in 3 months (12/04/2019 10:06 AM CDT) Cholesterol 116 0 - 199 mg/dL 12/04/2019 4:03 PM T [facility] Triglyceride 137 <=149 mg/dL 12/04/2019 4:03 PM T [facility] HDL Cholesterol 35(L) >=40 mg/dL 0 4:03 PM T [facility] LDL, Calculated 54 <130 mg/dL 0 4:[address] [facility] Non HDL Chol, Calculated 81 mg/dL 12/04/2019 4:03 PM T [facility] Cholesterol/HDL Ratio 3.3 12/04/2019 4:03 PM T [facility] Hours Fasting 12 12/04/2019 4:03 PM T [facility] Blood Venipuncture / Unknown 12/04/2019 10:06 AM CDT 12/04/2019 10:06 AM CDT Gagandeep Hinojosa MD LAB_1 Performing Organization Address [facility]/ZIP Co de Phone Number [facility] [address] [place] [address], [facility] [phone] [facility] [address] [place] [phone], [facility] [phone] * Creatinine / GFR - in 3 months (12/04/2019 10:06 AM CDT) Creatinine 0.80 0.73 - 1.18 mg/dL 12/04/2019 4:03 PM T [facility] GFR, Estimated >60 >60 mL/min/1.7 3m2 12/04/2019 4:03 PM T [facility] Blood Venipuncture / Unknown 12/04/2019 10:06 AM CDT 12/04/2019 10:06 AM CDT Gagandeep Hinojosa MD LAB_1 Performing Organization Address [facility]/ZIP Co de Phone Number [facility] [address] [place] [address] [phone] * HIV Antibody (03/12/2002 12:48 PM PROFESSIONAL ORGANIZER) HIV 1/HIV 2 Non Reac Non Reac HP CONVERSION 03/12/2002 12:4 8 PM PROFESSIONAL ORGANIZER Antonio Jerez MD LAB_1 HP CONVERSION * Hepatitis C Antibody, with Reflex (03/12/2002 12:48 PM PROFESSIONAL ORGANIZER) Hepatitis C Antibody Non Reac Non Reac HP CONVERSION 03/12/2002 12:4 8 PM PROFESSIONAL ORGANIZER Antonio Jerez MD LAB_1 HP CONVERSION from Last 3 Months or [...] 4:27 AM 05/01/2011 12:21 PM Care Teams Bike Technician Relationship Specialty Start Date End Date Needs Pcp, [place] [address] PCP - General 01/24/24 Vane Zarate Psychiatrist Psychiatry 03/22/12 [facility] Psychotherapist 08/04/17 [facility] Barrel Cleaner 09/13/17
--- OUTSIDE RECORDS SUMMARY | 2024-04-27 13:50 | XMS_ITS | Clinical Summary ---
Author Organization [facility] Address [place], [place] [address] Care Team Providers Care Health Claims Examiner Name Role Phone Glenys Alcantar MD Unavailable [phone] [facility], [place] Unavailable [phone] Zhane Stanley DO Primary Care Provider [phone] Samantha Grayson PharmD Unavailable [phone] Allergies Active Allergy Reactions Criticality Noted Date Comments Aripiprazole 06/09/2008 Tardive dyskinsia Bupropion Nausea Only,Anxiety 04/29/2017 Haloperidol 02/13/2007 Tardive dyskinsia Clonazepam Other - Describe In Comment Field 08/11/2021 Neuroleptic shock Thiothixene 02/13/2007 Tardive dyskinsia Nitroglycerin Nausea And Vomiting Medium 04/09/2013 Trifluoperazine Tremors 03/15/2009 Confusion, heart palpitations Ziprasidone *Unknown 03/15/2009 Tardive dyskinsia Medications milk of magnesia (MOM) 400 mg/5 mL suspension Take 15-30 mL by mouth once daily if needed. Active multivitamin (MVI) tablet Take 1 Tablet by mouth once daily. 0 021 Active ondansetron (ZOFRAN ODT) 4 mg disintegrating tabletIndication s:Nausea Place 1 Tablet (4 mg) on the tongue every 8 hours if needed for Nausea/Vomiting. 30 Tablet 021 Active lancets (Accu-Chek Softclix Lancets)Indicati ons:Type 2 diabetes mellitus with diabetic polyneuropathy, with long-term current use of insulin (HC) USE TO TEST 3 TIMES DAILY 200 Each 3 023 Active simethicone chewable (MYL[place] GAS RELIEF; GAS X) 80 mg chewable tabletIndication s:Flatulence Chew 1 Tablet (80 mg) by mouth 2 times daily if needed for Flatulence. Max dose: 500 mg per 24 hrs 180 Tablet 3 023 Active guaiFENesin 100 mg/5 mL liquidIndication s:Acute cough Take 5 mL (100 mg) by mouth every 6 hours if needed for Expectoration. Every 4 Hours as needed for cough 118 mL 024 Active calcium carbonate (Calcium Antacid) 200 mg calcium (500 mg) chewable tabletIndication s:Chronic GERD CHEW 2-4 TABLETS BY MOUTH BETWEEN MEALS & AT BEDTIME NEEDED (STANDING ORDER) 90 Tablet 3 024 Active rosuvastatin (CRESTOR) 20 mg tabletIndication s:Hyperlipidemia , unspecified hyperlipidemia type Take 1 Tablet (20 mg) by mouth at bedtime. 90 Tablet 3 024 Active Insulin Safety Neche, Disp, 30 gauge x ndications: Type 2 diabetes mellitus with diabetic polyneuropathy, with long-term current use of insulin (HC) To use with insulin administration Dx E11.42 300 Each 3 024 Active famotidine (PEPCID) 20 mg tabletIndication s:Chronic GERD Take 1 Tablet (20 mg) by mouth 2 times daily if needed for Heartburn or GI Upset. 180 Tablet 3 024 Active lisinopriL (PRINIVIL; ZESTRIL) 10 mg tabletIndication s:Positive for macroalbuminuria ,Type 2 diabetes mellitus with nephropathy (HC) Take 1 Tablet (10 mg) by mouth once daily. 90 Tablet 3 024 Active Comp Stocking,Knee,Re gular,Sml (T.E.D. Anti-Embolism Stocking) misc As directed. put on in the morning and take off at bedtime Active aspirin (ECOTRIN) 81 mg enteric coated tabletIndication s:HTN (hypertension) TAKE 1 TABLET BY MOUTH DAILY WITH A MEAL 90 Tablet 3 024 Active insulin degludec, U-200, (Tresiba FlexTouch U-200) 200 unit/mL (3 mL) penIndications:T ype 2 diabetes mellitus with diabetic polyneuropathy, with long-term current use of insulin (HC) INJECT 28 UNITS SUBCUTANEOUSLY AT BEDTIME 27 mL Active insulin lispro, U-100, (Admelog SoloStar U-100 Insulin) 100 unit/mL inpn penIndications:T ype 2 diabetes mellitus with diabetic polyneuropathy, with long-term current use of insulin (HC) INJECT 10 UNITS SUBCUTANEOUSLY THREE TIMES DAILY WITH MEAL(S);INJECT 0-8 UNITS SUBCUTANEOUSLY THREE TIMES DAILY PER SLIDING SCALE 60 mL Active Blood-Glucose Meter (True Metrix Glucose Meter) As directed. Active Blood Glucose Control, High (True Metrix Level 3) soln As directed. Act adithya menthol (Franklin Cough Drops) 3.2 mg lozg [...] topically to affected area(s) twice daily. Active nicotine 2 mg lozengeIndicatio ns:Tobacco use disorder PLACE 1 LOZENGE BY MOUTH , BETWEEN CHEEK & GUM EVERY 1 HOUR NEEDED WHILE AWAKE FOR CRAVINGS MAX OF 20 PER DAY 72 Lozenge 3 024 Active acetaminophen (TYLENOL) 325 mg tablet Take [...] times daily if needed for Cough. Active aluminum-magnesi um hydroxide-simeth icone (Antacid) 200-200-20 mg/5 mL suspension Take 5-10 mL by mouth 4 times daily if needed for GI Upset. Shake Well. As needed one time between meal and at bedtime Active mineral oil-hydrophil petrolat ointment Apply topically to affected area(s) two times daily. Active polyethylene glycoL (MIRALAX) 17 gram/scoop powderIndication s:Chronic constipation Mix 1 scoop (17 g) in liquid then take by mouth once daily if needed for Constipation. 1530 g 3 Active metFORMIN (GLUCOPHAGE) 1,000 mg tabletIndication s:Type 2 diabetes mellitus with diabetic polyneuropathy, with long-term current use of insulin (HC) Take 1 Tablet (1,000 mg) by mouth two times daily with meals. 180 Tablet Active furosemide (LASIX) 20 mg tabletIndication s:Bilateral lower extremity edema TAKE 1 TABLET BY MOUTH DAILY 90 Tablet Active gabapentin (NEURONTIN) 300 mg capsuleIndicatio ns:Diabetic ulcer of toe of right foot associated with type 2 diabetes mellitus, limited to breakdown of skin (HC),Diabetic peripheral neuropathy (HC) TAKE 3 CAPSULES BY MOUTH THREE TIMES DAILY 810 Capsule Active BD AutoShield Duo Pen Needle 30 gauge x 07/08 ndle Active Fiasp FlexTouch U-100 Insulin 100 unit/mL (3 mL) pen Active diphenhydrAMINE (Banophen) 25 mg capsule Take 1 Capsule (25 mg) by mouth every 6 hours if needed (sleep or allergies). Also helps with anxiety Active propranolol ER (INDERAL LA) 60 mg Cs24 Sustained-Releas e capsuleIndicatio ns:Panic disorder without agoraphobia,Gene ralized anxiety disorder,Medicat ion-induced postural tremor Take 1 Capsule (60 mg) by mouth once daily. Further refills will be prescribed during an appointment 28 Capsule 12 Active paliperidone palmitate (INVEGA SUSTENNA) 234 mg/1.5 mL intramuscular syringeIndicatio ns:Bipolar I disorder with mood-congruent psychotic features (HC) Inject 234 mg intramuscular every 3 weeks. 1.5 mL 16 Active QUEtiapine (SEROQUEL) 200 mg tabletIndication s:Bipolar I disorder with mood-congruent psychotic features (HC) Take 1 Tablet (200 mg) by mouth every evening 28 Tablet 12 024 Active busPIRone (BUSPAR) 30 mg tabletIndication s:Panic disorder without agoraphobia,Gene ralized anxiety disorder Take 1 Tablet (30 mg) by mouth two times daily. 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 56 Tablet 12 024 Active divalproex (DEPAKOTE) 500 mg Delayed-Release tabletIndication s:Bipolar I disorder with mood-congruent psychotic features (HC) Take 2 Tablets (1,000 mg) by mouth two times daily. 112 Tablet 12 Active ALPRAZolam (XANAX) 0.25 mg tabletIndication s:Panic disorder without agoraphobia,Gene ralized anxiety disorder Take 1 tablet (0.25 mg) every morning AND 1 tablet (0.25 mg) every evening. Further refills will be prescribed during an appointment 60 Tablet 2 Active empagliflozin (Jardiance) 10 mg tabletIndication s:Positive for macroalbuminuria ,Type 2 diabetes mellitus with diabetic polyneuropathy, with long-term current use of insulin (HC) TAKE 1 TABLET BY MOUTH DAILY 90 Tablet 024 Active QUEtiapine (SEROQUEL) 50 mg tabletIndication s:Generalized anxiety disorder,Bipolar I disorder with mood-congruent psychotic features (HC),Panic disorder without agoraphobia Take 1 tablet (50 mg) by mouth 3 times daily if needed for agitation, anxiety. Wait at least 1 hour between doses 90 Tablet 2 024 Active blood sugar diagnostic (True Metrix Glucose Test Strip) stripIndications :Type 2 diabetes mellitus with diabetic polyneuropathy, with long-term current use of insulin (HC) TEST BLOOD GLUCOSE THREE TIMES DAILY 300 Each 3 025 Active blood sugar diagnostic (True Metrix Glucose Test Strip) stripIndications :Type 2 diabetes mellitus with diabetic polyneuropathy, with long-term current use of insulin (HC) TEST BLOOD GLUCOSE THREE TIMES DAILY 300 Each 3 024 2023 Discontinued(* Availability/F ormulary change/Cost of medication) empagliflozin (Jardiance) 10 mg tabletIndication s:Positive for macroalbuminuria ,Type 2 diabetes mellitus with diabetic polyneuropathy, with long-term current use of insulin (HC) TAKE 1 TABLET BY MOUTH DAILY 30 Tablet 024 2023 Discontinued Active Problems Problem Noted Date Diagnosed Date Iliac artery stenosis, right 03/09/2024 Diabetic foot ulcer associat ed with type 2 diabetes mellitus 03/01/2024 Cellulitis in diabetic foot 03/01/2024 Chronic kidney disease, stage 2 (mild) Overview (03/01/2024): Baseline creatinine approximately 1-1.2 range for several years. Longstanding, documented albuminuria, first identified November 2010 at 39 mg/g (from 6969-8555, values arranged between 80-150 mg/g). Recent values [...] Encounters Date Type Department Care Team Description 04/23/2024 Refill [facility] [address] [place] [address] Jaden Zhane Анна, DO Refill Request (True Metrix strips) 04/13/2024 Telephone [facility] [address] [place] [address] Jaden Zhane Анна, DO Questions (appointment) 04/12/2024 Telephone [facility] [address] [place] [address] Johan Ye MD UPDATE 04/04/2024 2:00 PM [employer] Office Visit [facility] [address] [place] [address] Nathan Matthews MD CV Vascular New (Consult; iliac arterial stenosis. ) 04/04/2024 1:15 PM [employer] - 04/04/2024 11:59 PM [employer] Hospital Encounter [facility] [address] [place] [address] Gagandeep Manuel, Henok Mercado PAD (peripheral artery disease) (HC) 04/04/2024 Travel 04/03/2024 Refill [facility] [address] [place] [address] Jaden Zhane Анна, DO Refill Request (Jardiance) 03/29/2024 Telephone [facility] [address] [place] [address] oJhan Ye MD Letter 03/27/2024 1:00 PM [employer] Office Visit [facility] [address] [place] [address] Johan Ye MD Medication Management 03/27/2024 Travel 03/23/2024 Telephone [facility] [address] [place] [address] Hardeep Reardon MD Questions (colonoscopy) 03/23/2024 Telephone [facility] [address] [place] [address] Ky Love MD 03/19/2024 9:00 AM [employer] Ancillary Procedure [facility] [address] [place] [address] 03/19/2024 Travel 03/15/2024 Telephone [facility] [address] [place] [address] Jorge A Morgan MD Referral 03/12/2024 Orders Only [facility] [address] [place] [address] Gagandeep Manuel NP <No scans attached> 03/09/2024 11:00 AM [employer] Office Visit [facility] [address] [place] [address] Zhane Stanley Анна, DO Derm Problem (Cellulitis follow up ) 03/09/2024 9:30 AM [employer] Office Visit [facility] [address] [place] [address] Johan Ye MD Medication Management (medications reviewed yesterday 03/08/24 at appointment) 03/08/2024 10:50 AM [employer] Office Visit [facility] [address] [place] [address] Hardeep Reardon MD Foot Pain/problem (Cellulitis on both feet) 03/08/2024 Travel 03/07/2024 Refill [facility] [address] [place] [address] Sir Stanleyi Анна DO Refill Request (Metformin, Furosemide, Gabapentin, gavilax) 03/05/2024 Refill [facility] [address] [place] [address] Sir Stanleyi Анна, DO Refill Request (GAVILAX) 03/05/2024 Patient Outreach [facility] [address] [place] [address] Jacqueline Oliver, RN Primary RN Care Management; Hospital F/U (LACE 23/) 03/01/2024 1:04 PM [employer] - 03/03/2024 11:55 AM [employer] Hospital Encounter [facility] [address] [place] [address] Marco Antonio Goodwin DO Cellulitis in diabetic foot (HC) (Primary Dx) Discharge Disposition: Home Self Care 03/01/2024 7:00 AM [employer] Office Visit [address] [address] Anabel Sanchez MD Foot Problem (Sores on [...] X1 week.) 03/01/2024 Travel 02/27/2024 Nurse Triage [facility] [address] [place] [address] Jaden Zhane Анна, DO Foot Pain/problem (L heel ) 02/15/2024 Refill [facility] [address] [place] [address] Jaden Zhane Анна, DO NICOTINE JANNA 02/13/2024 1:00 PM CDT Office Visit [facility] [address] [place] [address] Hardeep Reardon MD Diarrhea (Having liquid bowel movements while sleeping x4. Unaware of needing to use the restroom. ) 02/13/2024 Telephone [facility] [address] [place] [address] Ky Love MD Chart Review 02/13/2024 Travel 02/07/2024 Refill [facility] [address] [place] [address] Zhane Stanley, DO Refill Request (Jardiance) 02/03/2024 9:30 AM CDT Office Visit [facility] [address] [place] [address] Johan Ye MD Follow Up; Medication Management (Discuss medications) 02/03/2024 Refill [facility] [address] [place] [address] Johan Ye MD Refill Request; PROPRANOLOL 02/03/2024 Travel from Last 3 Months Immunizations Name Administration Dates Next Due COVID-19 vaccine (All Def Digital-Bio NTech 30mcg/0.3mL) 12YO+ KATHERINE-SUCROSE PF, MDV 10/01/2021 COVID-19 vaccine (All Def Digital-Bio NTech 30mcg/0.3mL) PF, MDV 09/16/2020,08/26/2020 Hepatitis B [...] as did not want interactions with medication [facility] Utilities Answer Date Recorded Do you have trouble paying f or utilities (for example, heat, electricity, water, phone)? Yes 03/01/2024 PHQ-2 Answer Date Recorded PHQ-2 TOTAL SCORE [...] is your housing situation today? 1 03/01/2024 Interpersonal Safety Answer Date Record ed Are you being hit, kicked, p ushed or yelled at (see row info)? No 03/01/2024 Interpersonal Safety Abuse 12 - 18 Not on file 03/01/2024 Interpersonal Safety Ambulatory Vulnerability No t on file 03/01/2024 Education Answer Date Recorded What is the highest level of school you have completed or the highest degree you have received? High school graduate 04/15/2022 Sex and Gender Information Value Date Recorded Sex Assigned at Not on file Legal Sex Male 6:52 AM [employer] Gender Identity Not on file Sexual Orientation Not on file Occupation Industry Job Start Date Job End Date unemployed Not on file Not on file Not on file Obstetrics History Last Filed Vital Signs Vital Sign Reading Time Taken Comments Blood Pressure 132/78 04/04/2024 2:00 PM [employer] Pulse 69 04/04/2024 2:00 PM [employer] Temperature 37.2 C (99 F) 03/03/2024 7:48 AM [employer] Respiratory Rate 16 04/04/2024 2:00 PM [employer] Oxygen Saturation 96% 04/04/2024 2:00 PM [employer] Inhaled Oxygen Concentration - - Weight 90.7 kg (200 lb) 04/04/2024 2:00 PM [employer] Height 177.8 cm (5' 10) 04/04/2024 2:00 PM [employer] Body Mass Index 28.7 04/04/2024 2:00 PM [employer] Plan of Treatment Upcoming Encounters Date Type Department Care Team (Late st Contact Info) Description 04/30/2024 9:30 AM [employer] Office Visit [facility] [address] [place] [address] Johan Ye MD [address] [place] [address] 05/01/2024 10:30 AM [employer] Office Visit [facility] [place] [address] [facility] [address] [place] [phone] Zi Chen DPM [address] [place] [address] 05/16/2024 11:00 AM [employer] Office Visit [facility] [address] [place] [address] Zhane Stanley, DO [address] [place] [address] 06/05/2024 12:30 PM [employer] Office Visit [facility] [address] [place] [address] Johan Ye MD [address] [place] [address] Health Maintenance Due Date Last Done Comments Low Dose CT (for lung CA) ag e 50-80 03/19/2025 03/19/2024, 02/14/2023, 12/21/2021, Additional history exists Depression screening for age 12+ 03/29/2025 03/29/2024, 03/27/2024, 03/12/2024, Additional history exists BMI (ht and wt on same day) for age 18+ 04/04/2025 04/04/2024, 11/14/2023, 09/12/2023, Additional history exists Fecal testing sDNA-FIT ([place] guard) for age 45-75 09/07/2025 09/07/2022 Tetanus booster 11/03/2025 11/04/2015, 08/24, 11/12/1998 Lipids for age 45-75 11/13/2028 11/14/2023, 07/02/2022, 05/25/2022, Additional history exists Tdap Completed 11/04/2015, 09/15/2005 HIV for age 15-65 Completed 06/25/2020 Hepatitis C screening for ag e 18-79 Completed 06/25/2020 Hepatitis B series for Diabetes Completed 03/02/2023, 08/18/2020, 12/18/2018 Pneumococcal series for age 50+ Completed 3, 10/08/2009 Zoster (shingles) series for age 50+ Completed 06/06/2023, 03/07/2023 COVID-19 vaccine series Completed 01/31/20, 08/04/2023, 02/07/2023, Additional history exists Influenza for age 50-64 Completed 01/31/20, 02/07/2023, 02/02/2022, Additional history exists Procedures Procedure Name Priority Date/Time Associated Diagnosis Comments US ROB W TOE PRESSURES BILATERAL Routine 04/04/2024 1:58 PM [employer] PAD (peripheral artery disease) (HC) CT CHEST SCREENING LOW DOSE WO CONTRAST Routine 03/19/2024 9:12 AM [employer] Encounter for screening for lung cancer Former smoker IRON PLUS IRON BINDING CAP Routine 03/08/2024 12:02 PM [employer] Anemia of unknown etiology HEMOGLOBIN Routine 03/08/2024 12:02 PM [employer] Anemia of unknown etiology BASIC METABOLIC PANEL Routine 03/08/2024 12:02 PM [employer] Hyperkalemia GLUCOSE METER Routine 03/03/2024 11:03 AM [employer] GLUCOSE METER Routine 03/03/2024 7:48 AM [employer] C-REACTIVE PROTEIN Early AM 03/03/2024 6: 34 AM [employer] SODIUM Early AM 03/03/2024 6:34 AM [employer] HEMOGLOBIN Early AM 03/03/2024 6:34 AM [employer] CREATININE Early AM 03/03/2024 6:34 AM [employer] POTASSIUM Early AM 03/03/2024 6:34 AM [employer] MAGNESIUM Early AM 03/03/2024 6:34 AM [employer] GLUCOSE METER Routine 03/02/2024 8:55 PM [employer] GLUCOSE METER Routine 03/02/2024 6:33 PM [employer] GLUCOSE METER Routine 03/02/2024 11:37 AM [employer] GLUCOSE METER Routine 03/02/2024 8:59 AM [employer] CT ANGIO LOWER EXTREMITY BILAT RUNOFF Early AM 03/02/2024 8:29 AM [employer] C-REACTIVE PROTEIN [place] 03/02/2024 5: 49 AM [employer] HEMOGLOBIN Early AM 03/02/2024 5:49 AM [employer] WHITE BLOOD COUNT Early AM 03/02/2024 5:4 9 AM [employer] MAGNESIUM Early AM 03/02/2024 5:49 AM [employer] CREATININE Early AM 03/02/2024 5:49 AM [employer] POTASSIUM Early AM 03/02/2024 5:49 AM [employer] SODIUM Early AM 03/02/2024 5:49 AM [employer] GLUCOSE METER Routine 03/01/2024 9:17 PM [employer] GLUCOSE METER Routine 03/01/2024 6:00 PM [employer] EKG 12 LEAD [place] 03/01/2024 3:32 PM [employer] MRSA/SA PCR Today 03/01/2024 2:52 PM [employer] MAGNESIUM [place] 03/01/2024 2:11 PM [employer] CBC WITH AUTO DIFFERENTIAL [place] 03/01/2024 2:11 PM [employer] LACTATE VENOUS [place] 03/01/2024 2:11 PM [employer] PROCALCITONIN [place] 03/01/2024 2:11 PM [employer] SEDIMENTATION RATE [place] 03/01/2024 2: 11 PM [employer] C-REACTIVE PROTEIN [place] 03/01/2024 2: 11 PM [employer] COMP METABOLIC PANEL [place] 03/01/2024 2:11 PM [employer] CBC WITH AUTO DIFFERENTIAL [place] 03/01/2024 2:11 PM [employer] XR FOOT 3 VIEWS LEFT STAT 03/01/2024 2:03 PM [employer] XR FOOT 3 VIEWS RIGHT STAT 03/01/2024 2:01 PM [employer] LIPID PANEL W REFLEX MEASURED LDL Routine 11/14/2023 9:06 AM CDT Hyperlipidemia with target LDL less than 70 SDNA-FIT EXTERNAL (COLOGUARD) Routine 09/07/2022 10:30 AM CDT Screening for colon cancer ANTI HIV 1/2 [place] 06/25/2020 7:57 AM [employer] ANTI HCV [place] 06/25/2020 7:57 AM [employer] from Last 3 Months or Most Recently Relevant to Health Maintenance Results * US ROB W TOE PRESSURES BILATERAL (04/04/2024 1:58 PM [employer]) Anatomical Region Laterality Modality TOES Ultrasound 04/04/2024 1:38 PM [employer] Narrative 04/04/2024 5:30 PM [employer] VASCULAR ULTRASOUND REPORT SHARLENE KRISHNAMURTHY : 1970 Study Date: 04/04/2024 1:38:09 PM Age: 54 years Tech: [facility] Gender: M Referring MD: GAGANDEEP MANUEL Site: [facility] Vascular Center Study performed: Lower extremity resting ROB, TBI, (bilateral). Indication for study: Non-healing wound in LE Study Quality: Good TECHNIQUE: Lower/upper extremity arteries were examined per exam protocol by duplex ultrasound, color-flow and spectral Doppler. Peak systolic velocities (PSV), Doppler waveform quality, velocity ratios and vessel size in cm, were documented at protocol specific sites. Physiologic data including segmental pressures, ankle/brachial index (ROB), digit PPG recordings, laser Doppler flowmetry, transcutaneous oximetry, and digit temperatures were documented at sites per exam protocol and test requirements. IMPRESSION: 1. Resting ankle-brachial index is normal on the right at 1.24 and is normal on the left at 1.16. 2. Toe-brachial index is normal on the right at 0.82 and toe-brachial index is normal on the left at 0.81. COMPARISON: No prior study available for comparison. FINDINGS: Right toe/brachial index indicates normal range. Left toe/brachial index indicates normal range. +-------+ + RIGHT Phasicity +-------+ + TEACHER VISUALLY IMPAIRED DST multiphasic +-------+ + DPA multiphasic +-------+ + +-------+ + LEFT Phasicity +-------+ + TEACHER VISUALLY IMPAIRED DST multiphasic +-------+ + DPA multiphasic +-------+ + Criteria: Stenosis V. Ratio Mild <50% <2.0 Moderate 50-74% > or = 2.0 Severe 75-99% > or = 4.0 Occluded 100% no detectable flow Pressures +-----+ +--------+ +-----+ RIGHT (mmHg) LEFT (mmHg) +-----+ +--------+ +-----+ Index 191 Brachial 191 Index +-----+ +--------+ +-----+ 1.21 231 TEACHER VISUALLY IMPAIRED 222 1.16 +-----+ +--------+ +-----+ 1.24 236 DPA 221 1.16 +-----+ +--------+ +-----+ 0.82 156 Digit 1 154 0.81 +-----+ +--------+ +-----+ Gagandeep Andrews MD. Electronically signed on 04/04/2024 5:30:47 PM This study was performed and interpreted by a service accredited by the [employer]ocietal Accreditation Commission (IAC/Vascular), [email or web address].org/vascular Report generated by [employer]. Final Procedure Note Gagandeep Andrews MD - 04/04/2024 VASCULAR ULTRASOUND REPORT SHARLENE KRISHNAMURTHY : 1970 Study Date: 04/04/2024 1:38:09 PM Age: 54 years Tech: [facility] Gender: M Referring MD: GAGANDEEP MANUEL Site: [facility] - Vascular Center Study performed: Lower extremity resting ROB, TBI, (bilateral). Indication for study: Non-healing wound in LE Study Quality: Good TECHNIQUE: Lower/upper extremity arteries were examined per exam protocol by duplexultrasound, color-flow and spectral Doppler. Peak systolic velocities(PSV), Doppler waveform quality, velocity ratios and vessel size in cm,were documented at protocol specific sites. Physiologic data includingsegmental pressures, ankle/brachial index (ROB), digit PPG recordings,laser Doppler flowmetry, transcutaneous oximetry, and digit temperatureswere documented at sites per exam protocol and test requirements. IMPRESSION: 1. Resting ankle-brachial index is normal on the right at 1.24 and isnormal on the left at 1.16. 2. Toe-brachial index is normal on the right at 0.82 and toe-brachialindex is normal on the left at 0.81. COMPARISON: No prior study available for comparison. FINDINGS: Right toe/brachial index indicates normal range. Left toe/brachial index indicates normal range. +-------+ + RIGHT Phasicity +-------+ + TEACHER VISUALLY IMPAIRED DST multiphasic +-------+ + DPA multiphasic +-------+ + +-------+ + LEFT Phasicity +-------+ + TEACHER VISUALLY IMPAIRED DST multiphasic +-------+ + DPA multiphasic +-------+ + Criteria: Stenosis V. Ratio Mild <50% <2.0 Moderate 50-74% > or = 2.0 Severe 75-99% > or = 4.0 Occluded 100% no detectable flow Pressures +-----+ +--------+ +-----+ RIGHT (mmHg) LEFT (mmHg) +-----+ +--------+ +-----+ Index 191 Brachial 191 Index +-----+ +--------+ +-----+ 1.21 231 TEACHER VISUALLY IMPAIRED 222 1.16 +-----+ +--------+ +-----+ 1.24 236 DPA 221 1.16 +-----+ +--------+ +-----+ 0.82 156 Digit 1 154 0.81 +-----+ +--------+ +-----+ Gagandeep Andrews MD. Electronically signed on 04/04/2024 5:30:47 PM This study was performed and interpreted by a service accredited by theIntersocietal Accreditation Commission (IAC/Vascular),[email or web address].org/vascular Report generated by [employer]. Final us Gagandeep Manuel NP Yessenia waterman Result * CT CHEST SCREENING LOW DOSE WO CONTRAST (03/19/2024 9:12 AM [employer]S TEACHER) Anatomical Region Laterality Modality Computed Tomogra phy Impressions 03/21/2024 9:58 AM [employer] IND[employer] ARTS TEACHER Stable study, Lung-RADS category 1 - Negative [...] 3:22:24 PM /sp Narrative 03/21/2024 9:58 AM [employer] IND[employer]RI[employer] ARTS TEACHER For Patients: As a result of the [...] thoracic spine. Soft tissues are unremarkable. Zhane Stanley DO CT Final Result * IRON PLUS IRON BINDING CAP (03/08/2024 12:02 PM [employer] IND[employer]S TEACHER) IRON, TOTAL 75 50 - 180 mcg/dL [facility] IRON BINDING CAPACITY 271 250 - 425 mcg/dL (calc) [facility] % SATURATION 28 20 - 48 % (calc) [facility] Blood BLOOD SPECIMEN / Unknown 03/08/2024 12:02 PM [employer]S TEACHER 03/08/2024 12:02 PM [employer] IND[employer] ARTS TEACHER Hardeep Reardon MD CHEMISTRY Final Result [facility] [address] [place] [address], [facility] [address] [place] [address] * (ABNORMAL) HEMOGLOBIN (03/08/2024 12:02 PM [employer]S TEACHER) Only the most recent of3 resultswithin the time period is included. HEMOGLOBIN 12.2(L) 13.2 - 17.1 g/dL [employer] Blood BLOOD SPECIMEN / Unknown 03/08/2024 12:02 PM [employer] IND[employer]RIAL ARTS TEACHER 03/08/2024 12:02 PM [employer] IND[employer]RIAL ARTS TEACHER Hardeep Reardon MD HEMATOLOGY Final Result Performing Organization Address City/[facility]/ZIP Co de Phone Number [facility] [address] [place] [address], [place] [phone] [facility] [address] [place] [address] * (ABNORMAL) BASIC METABOLIC PANEL (03/08/2024 12:02 PM [employer] IND[employer] ARTS TEACHER) [facility] GLUCOSE 148(H) 65 - 99 mg/dL [facility] Comment: Fasting reference interval For [...] BLOOD SPECIMEN / Unknown 03/08/2024 12:02 PM [employer] IND[employer]RIAL ARTS TEACHER 03/08/2024 12:02 PM [employer] IND[employer] ARTS TEACHER Hardeep Reardon MD CHEMISTRY Final Result [facility] [address] [place] [address], [place] [phone] [facility] [address] [place] [address] * (ABNORMAL) GLUCOSE METER (03/03/2024 11:03 AM [employer] IND[employer]AL ARTS TEACHER) Only the most recent of8 resultswithin the time period is included. GLUCOSE METER 251(H) 65 - 100 mg/dL 03/03/2024 11:08 AM H[employer] INDUSTRIAL ARTS TEACHER [facility] Blood BLOOD SPECIMEN / Unknown 03/03/2024 11:03 AM [employer] IND[employer]RIAL ARTS TEACHER 03/03/2024 11:08 AM [employer] IND[employer]RIAL ARTS TEACHER Marco Antonio OKCoinmarian [facility] DO CHEMISTRY Final Res ult Performing Organization Address City/[facility]/ZIP Co de Phone Number [facility] [address] [place] [address] * (ABNORMAL) SODIUM (03/03/2024 6:34 AM H[employer] IND[employer]RIAL ARTS TEACHER) Only the most recent of2 resultswithin the time period is included. SODIUM 134(L) 136 - 145 mmol/L 03/03/2024 7:32 AM H[employer] INDUSTRIAL ARTS TEACHER [facility] Blood BLOOD SPECIMEN / Unknown Venipuncture / Unknown 03/03/2024 6:34 AM H[employer] IND[employer]RIAL ARTS TEACHER 03/03/2024 6:52 AM [employer] INDUSTRIAL ARTS TEACHER us Marco Antonio [facility]inyoko [facility] DO CHEMISTRY Final Res ult [facility] [address] [place] [address] * (ABNORMAL) POTASSIUM (03/03/2024 6:34 AM H[employer] IND[employer]RIAL ARTS TEACHER) Only the most recent of2 resultswithin the time period is included. POTASSIUM 5.2(H) 3.5 - 5.1 mmol/L 03/03/2024 7:32 AM H[employer] INDUSTRIAL ARTS TEACHER [facility] Blood BLOOD SPECIMEN / Unknown Venipuncture / Unknown 03/03/2024 6:34 AM H[employer] INDUSTRIAL ARTS TEACHER 03/03/2024 6:52 AM [employer] IND[employer]RIAL ARTS TEACHER Freya Roberts RN CHEMISTRY Final Result Performing Organization Address [facility] Phone Number [facility] [address] [place] [address] * (ABNORMAL) CREATININE (03/03/2024 6:34 AM H[employer] IND[employer]AL ARTS TEACHER) Only the most recent of2 resultswithin the time period is included. eGFR 79(L) >90 mL/min/1.7 3m2 03/03/2024 7:32 AM HIGH S[employer]OL INDUSTRIAL ARTS TEACHER [facility] Comment:As of 2021, eG FR is calculated by the CKD-EPI creatinine equation without race adjustment. eGFR can be influenced by muscle mass, exercise, and diet. The reported eGFR is an estimation only and is only applicable if the renal function is stable. CREATININE 1.11 0.70 - 1.20 mg/dL 03/03/2024 7:32 AM HIGH S[employer]OL INDUSTRIAL ARTS TEACHER [facility] Blood BLOOD SPECIMEN / Unknown Venipuncture / Unknown 03/03/2024 6:34 AM H[employer] S[employer] INDUSTRIAL ARTS TEACHER 03/03/2024 6:52 AM [employer] IND[employer]RIAL ARTS TEACHER Marco Antonio Goodwin DO CHEMISTRY Final Res ult Performing Organization Address [facility] Phone Number [facility] [address] [place] [address] * (ABNORMAL) C-REACTIVE PROTEIN (03/03/2024 6:34 AM H[employer] IND[employer]RIAL ARTS TEACHER) Only the most recent of3 resultswithin the time period is included. C-REACTIVE PROTEIN 4.6(H) <0.5 mg/dL 03/03/2024 7:32 AM H[employer] INDUSTRIAL ARTS TEACHER [facility] Blood BLOOD SPECIMEN / Unknown Venipuncture / Unknown 03/03/2024 6:34 AM H[employer] INDUSTRIAL ARTS TEACHER 03/03/2024 6:52 AM H[employer] INDUSTRIAL ARTS TEACHER us Marco Antonio Goodwin DO CHEMISTRY Final Res ult Performing Organization Address [facility]/ZIP Co de Phone Number [facility] [address] [place] [address] * MAGNESIUM (03/03/2024 6:34 AM H[employer] INDUSTRIAL ARTS TEACHER) Only the most recent of3 resultswithin the time period is included. MAGNESIUM 2.4 1.6 - 2.6 mg/dL 03/03/2024 7:32 AM H[employer] S[employer] INDUSTRIAL ARTS TEACHER [facility] Blood BLOOD SPECIMEN / Unknown Venipuncture / Unknown 03/03/2024 6:34 AM H[employer] S[employer]OL INDUSTRIAL ARTS TEACHER 03/03/2024 6:52 AM H[employer] INDUSTRIAL ARTS TEACHER us Freya Roberts RN CHEMISTRY Final Result [facility] [address] [place] [address] * CT ANGIO LOWER EXTREMITY BILAT RUNOFF (03/02/2024 8:29 AM H[employer] INDUSTRIAL ARTS TEACHER) Anatomical Region Laterality Modality LEGS Computed Tomogra phy 03/02/2024 10:0 6 AM [employer] INDUSTRIAL ARTS TEACHER Narrative 03/02/2024 10:06 AM H[employer] S[employer] INDUSTRIAL ARTS TEACHER For Patients: As a result of the [...] stenosis in the superficial femoral artery. Focal cpnv-sy-hpsvxlfv stenosis in the distal popliteal artery. Tibioperoneal arteries: Patent, with three-vessel runoff to the ankle. Left lower extremity: Common/external iliac arteries: Left common iliac artery measures 9 mm. Okjf-eb-nrrsgaun mixed atherosclerotic disease in the common iliac [...] multifocalstenosis in the superficial femoral artery. Focal ovci-mz-hwgnpcjctudzkkzh in the distal popliteal artery. Tibioperoneal arteries: Patent, with three-vessel runoff to the ankle. Left lower extremity: Common/external iliac arteries: Left common iliac artery measures 9 mm.Fcod-ep-dwcfeuwj mixed atherosclerotic disease in the common iliac [...] @ 03/02/2024 10:06:59 (Electronically Signed) Marco Antonio Arriolamarian Goodwin DO CT Final Res ult * WHITE BLOOD COUNT (03/02/2024 5:49 AM H[employer] INDUSTRIAL ARTS TEACHER) [facility] WHITE BLOOD COUNT 6.1 4.5 - 11.0 thou/cu mm 03/02/2024 6:38 AM H[employer] S[employer]OL INDUSTRIAL ARTS TEACHER [facility] Blood BLOOD SPECIMEN / Unknown Venipuncture / Unknown 03/02/2024 5:49 AM H[employer] INDUSTRIAL ARTS TEACHER 03/02/2024 6:34 AM [employer] INDUSTRIAL ARTS TEACHER Marco Antonio Arriolamarian Desaidinah DO HEMATOLOGY Final Res ult Performing Organization Address City/[facility] Co de Phone Number [facility] [address] [place] [address] * 12 Lead EKG (03/01/2024 3:32 PM H[employer] INDUSTRIAL ARTS TEACHER) [facility] Interpretation Normal sinus rhythm Minimal voltage [...] NOW QTc 428 ms BEYOND NOW P [place] 37 degrees BEYOND NOW R [place] 15 degrees BEYOND NOW T [place] 33 degrees BEYOND NOW 03/01/2024 3:32 PM [employer] IND[employer]RIAL ARTS TEACHER 03/01/2024 6:37 PM [employer] IND[employer]RIAL ARTS TEACHER Marco Antonio Arriolamarian Goodwin DO EKG ORD Final Res ult Performing Organization Address City/[facility] Co de Phone Number BEYOND NOW [place], [place] * MRSA/SA PCR (03/01/2024 2:52 PM H[employer] INDUSTRIAL ARTS TEACHER) [facility] MRSA DNA PCR Negative Negative 03/01/2024 11:27 PM HIGH S[employer]OL INDUSTRIAL ARTS TEACHER [facility] LABORATORY STAPHYLOCOCCUS AUREUS PCR Negative Negative 03/01/2024 11:27 PM HIGH S[employer]OL INDUSTRIAL ARTS TEACHER [facility] Other SPECIMEN FROM INTERNAL NOSE / Unknown Non-Blood / Unknown 03/01/2024 2:52 PM H[employer] S[employer]OL INDUSTRIAL ARTS TEACHER 03/01/2024 3:07 PM H[employer] S[employer]OL INDUSTRIAL ARTS TEACHER Narrative [facility] - 03/01/2024 11:27 PM HIGH S[employer] INDUSTRIAL ARTS TEACHER Test result does not preclude MRSA or SA nasal colonization. Marco Antonio Santa Goodwin MICROBIOLOGY Final Res ult [facility] [address] [place] [address], * (ABNORMAL) SEDIMENTATION RATE (03/01/2024 2:11 PM H[employer] INDUSTRIAL ARTS TEACHER) Pathologist [facility] SEDIMENTATION RATE 46(H) <20 mm/hr 2023 2:34 PM H[employer] INDUSTRIAL ARTS TEACHER [facility] Blood BLOOD SPECIMEN / Unknown Venipuncture / Unknown 03/01/2024 2:11 PM H[employer] S[employer] INDUSTRIAL ARTS TEACHER 03/01/2024 2:14 PM [employer] INDUSTRIAL ARTS TEACHER Marco Antonio [facility] DO HEMATOLOGY Final Res ult [facility] [address] [place] [address] [id number] * (ABNORMAL) CBC WITH AUTO DIFFERENTIAL (03/01/2024 2:11 PM H[employer] INDUSTRIAL ARTS TEACHER) Pathologist [facility] WHITE BLOOD COUNT 7.4 4.5 - 11.0 thou/cu mm 03/01/2024 2:21 PM H[employer] INDUSTRIAL ARTS TEACHER [facility] RED BLOOD COUNT 3.84(L) 4.30 - 5.90 mil/cu mm 03/01/2024 2:21 PM H[employer] INDUSTRIAL ARTS TEACHER [facility] HEMOGLOBIN 11.5(L) 13.5 - 17.5 g/dL 03/01/2024 2:21 PM H[employer] INDUSTRIAL ARTS TEACHER [facility] HEMATOCRIT 33.7(L) 37.0 - 53.0 % 03/01/2024 2:21 PM [facility] MCV 88 80 - 100 fL 03/01/2024 2:21 PM [facility] MCH 29.9 26.0 - 34.0 pg 03/01/2024 2:21 PM [facility] MCHC 34.1 32.0 - 36.0 g/dL 03/01/2024 2:21 PM [facility] RDW 12.6 11.5 - 15.5 % 03/01/2024 2:21 PM [facility] PLATELET COUNT 153 140 - 440 thou/cu mm 03/01/2024 2:21 PM [facility] MPV 8.8 6.5 - 11.0 fL 03/01/2024 2:21 PM [facility] % NEUT 61.2 % 03/01/2024 2:21 PM [facility] % LYMPH 18.6 % 03/01/2024 2:21 PM [facility] % MONO 19.5 % 03/01/2024 2:21 PM [facility] % EOS 0.3 % 03/01/2024 2:21 PM [facility] % BASO 0.4 % 03/01/2024 2:21 PM [facility] ABSOLUTE NEUTROPHILS 4.5 1.7 - 7.0 thou/cu mm 03/01/2024 2:21 PM [facility] ABSOLUTE LYMPHOCYTES 1.4 0.9 - 2.9 thou/cu mm 03/01/2024 2:21 PM [facility] ABSOLUTE MONOCYTES 1.4(H) <0.9 thou/cu mm 03/01/2024 2:21 PM [facility] ABSOLUTE EOSINOPHILS 0.0 <0.5 thou/cu mm 03/01/2024 2:21 PM [facility] ABSOLUTE BASOPHILS 0.0 <0.3 thou/cu mm 03/01/2024 2:21 PM [facility] Blood BLOOD SPECIMEN / Unknown Venipuncture / Unknown 03/01/2024 2:11 PM [employer]AL ARTS TEACHER 03/01/2024 2:14 PM [employer] IND[employer]RIAL ARTS TEACHER us Marco Antoniobelén Briggsen Drevlow DO HEMATOLOGY Final Res ult Performing Organization Address City/[facility]/ZIP Co de Phone Number [facility] [address] [place] [address] * LACTATE VENOUS (03/01/2024 2:11 PM H[employer] IND[employer]RIAL ARTS TEACHER) LACTATE,VENOUS 1.7 0.5 - 2.0 mmol/L 03/01/2024 2:35 PM [employer] IND[employer]RIAL ARTS TEACHER [facility] Blood BLOOD SPECIMEN / Unknown Venipuncture / Unknown 03/01/2024 2:11 PM [employer] INDUSTRIAL ARTS TEACHER 03/01/2024 2:14 PM H[employer] INDUSTRIAL ARTS TEACHER us Marco Antoniobelén Briggs [facility] DO CHEMISTRY Final Res ult Performing Organization Address [facility] Co de Phone Number [facility] [address] [place] [address] * PROCALCITONIN (03/01/2024 2:11 PM H[employer] S[employer] IND[employer]RIAL ARTS TEACHER) PROCALCITONIN 0.08 ng/ml 03/01/2024 2:54 PM [employer] INDUSTRIAL ARTS TEACHER [facility] Blood BLOOD SPECIMEN / Unknown Venipuncture / Unknown 03/01/2024 2:11 PM H[employer] IND[employer]RIAL ARTS TEACHER 03/01/2024 2:14 PM [employer] IND[employer]RIAL ARTS TEACHER Narrative [facility] - 03/01/2024 2:54 PM [employer] IND[employer] ARTS TEACHER Procalcitonin for initial assessment of Lower Respiratory [...] any concentrations < 2 ng/mL are obtained. us Marco Antonio Goodwin DO SEND OUTS Final Res ult [facility] [address] [place] [address] * (ABNORMAL) COMP METABOLIC PANEL (03/01/2024 2:11 PM H[employer] INDUSTRIAL ARTS TEACHER) SODIUM 130(L) 136 - 145 mmol/L 03/01/2024 2:38 PM H[employer] INDUSTRIAL ARTS TEACHER [facility] POTASSIUM 4.8 3.5 - 5.1 mmol/L 03/01/2024 2:38 PM [facility] CHLORIDE 92(L) 98 - 107 mmol/L 03/01/2024 2:38 PM [facility] CO2,TOTAL 25 22 - 29 mmol/L 03/01/2024 2:38 PM [facility] ANION GAP 13 5 - 18 03/01/2024 2:38 PM [facility] GLUCOSE 118(H) 70 - 99 mg/dL 03/01/2024 2:38 PM [facility] CALCIUM 9.0 8.8 - 10.4 mg/dL 03/01/2024 2:38 PM [facility] Comment: Reference ranges for this test were updated on 02/28/2024 to reflect our healthy population more accurately. Reference range changes are not retroactively applied to results, but previous results using the same methodology can be interpreted in the context of the new reference range. BUN 25(H) 6 - 20 mg/dL 03/01/2024 2:38 PM [facility] CREATININE 1.14 0.70 - 1.20 mg/dL 03/01/2024 2:38 PM [facility] BUN/CREAT RATIO 22(H) 10 - 20 2:38 PM [facility] eGFR 76(L) >90 mL/min/1. 73m2 03/01/2024 2:38 PM [facility] Comment:As of 2021, eG FR is calculated by the CKD-EPI creatinine equation without race adjustment. eGFR can be influenced by muscle mass, exercise, and diet. The reported eGFR is an estimation only and is only applicable if the renal function is stable. ALBUMIN 3.5(L) 4.0 - 4.9 g/dL 03/01/2024 2:38 PM [facility] PROTEIN,TOTAL 6.5 6.0 - 8.0 g/dL 03/01/2024 2:38 PM [facility] BILIRUBIN,TOTAL 0.3 0.0 - 1.2 mg/dL 03/01/2024 2:38 PM [facility] ALK PHOSPHATASE 53 40 - 129 IU/L 03/01/2024 2:38 PM [facility] ALT (SGPT) 9(L) 10 - 50 IU/L 03/01/2024 2:38 PM [facility] AST (SGOT) 22 10 - 50 IU/L 03/01/2024 2:38 PM [facility] Blood BLOOD SPECIMEN / Unknown Venipuncture / Unknown 03/01/2024 2:11 PM [employer]S TEACHER 03/01/2024 2:14 PM [employer]S TEACHER Marco Antonio Goodwin DO CHEMISTRY Final Res ult [facility] [address] [place] [address] * XR FOOT 3 VIEWS LEFT (03/01/2024 2:03 PM [employer]S TEACHER) Anatomical Region Laterality Modality FEET, FOOT L Digital Radiogra phy 03/01/2024 2:13 PM [employer] IND[employer]AL ARTS TEACHER Narrative 03/01/2024 2:13 PM [employer] IND[employer]AL ARTS TEACHER For Patients: As a result of the [...] 03/01/2024 2:13:58 PM (Electronically Signed) Marco Antonio Santa Goodwin DO GENERAL IMAGING Final Res ult * XR FOOT 3 VIEWS RIGHT (03/01/2024 2:01 PM H[employer] IND[employer]RIAL ARTS TEACHER) Anatomical Region Laterality Modality FEET, FOOT R Digital Radiogra phy 03/01/2024 2:11 PM H[employer] INDUSTRIAL ARTS TEACHER Narrative 03/01/2024 2:11 PM [employer] IND[employer]AL ARTS TEACHER For Patients: As a result of the [...] Signed) Marco Antonio Goodwin DO GENERAL IMAGING Final Res ult * (ABNORMAL) LIPID PANEL W REFLEX MEASURED LDL (11/14/2023 9:06 AM CDT) CHOLESTEROL,TOTAL 117 100 - 199 mg/dL 11/14/2023 6:57 PM CDT [facility] Comment: Cholesterol, Total Reference Ranges Desirable <200 mg/dL Borderline 200-239 mg/dL High >=240 mg/dL TRIGLYCERIDES 156(H) <150 mg/dL 11/14/2023 6:57 PM CDT [facility] HDL CHOLESTEROL 44 >40 mg/dL 6:57 PM CDT [facility] NON-HDL CHOLESTEROL 73 <145 mg/dl 11/14/2023 6:57 PM CDT [facility] CHOL/HDL RATIO 2.66 <4.50 11/14/2023 6:57 PM CDT [facility] LDL CHOLESTEROL 42 <=130 mg/dL 11/14/2023 6:57 PM CDT [facility] VLDL CHOLESTEROL 31(H) <=30 mg/dL 11/14/2023 6:57 PM CDT [facility] PROVIDER ORDERED STATUS RANDOM 11/14/2023 6:57 PM CDT [facility] Blood BLOOD SPECIMEN / Unknown Venipuncture / Unknown 11/14/2023 9:06 AM CDT 11/14/2023 9:06 AM CDT us Zhane Stanley DO CHEMISTRY Final Result [facility] [address] [place] [address], * SDNA-FIT EXTERNAL (COLOGUARD) (09/07/2022 10:30 AM CDT) NONINV COLON CA DNA+OCC BLD SCRN STL-IMP Negative Negative 09/12/2022 4:39 PM CDT [employer] (CLIA #:[id number]) Comment: NEGATIVE TEST RESULT. A negative Cologuard [...] (Oscar Clifford al, N Engl J Med 2014;370(14):6678-6556) The normal value (reference range) for this assay is negative. COLOGUARD RE-SCREENING RECOMMENDATION: Periodic colorectal cancer screening is an important part of preventive healthcare for asymptomatic individuals at average risk for colorectal cancer. Following a negative Cologuard result, the [place] [employer] and U.S. Multi-Society Task Force screening guidelines recommend a Cologuard re-screening interval of 3 years. References: [place] [employer] Guideline for Colorectal Cancer Screening: https://www.cancer.org/cancer/mliuu-vwockm-hpfbog/brjkoiwxl-bntwiptfz-gxaerzq/ac s-rec ommendations.html.; Rob DK, Dory GOMEZ, Juan Luis JuárezK, Colorectal Cancer Screening: Recommendations for Physicians and Patients from the U.S. Multi-Society Task Force on Colorectal Cancer Screening , Am J Gastroenterology 2017; 112:6881-7321. TEST DESCRIPTION: Composite algorithmic analysis of stool [...] (Oscar Clifford al, N Engl J Med 2014;370(14):8760-2196.) Cologuard may produce a false negative or false positive result (no colorectal cancer or precancerous polyp present at colonoscopy follow up). A negative Cologuard test result does not guarantee the absence of CRC or advanced adenoma (pre-cancer). The current Cologuard screening interval is every 3 years. ([place] [employer] and U.S. Multi-Society Task Force). Cologuard performance data in a 10,000 patient pivotal study using colonoscopy as the reference method can be accessed at the following location: www.[employer].Context Relevant/results. Additional description of the Cologuard test process, warnings and precautions can be found at www.cologuard.com. Stool specimen (specimen) (Rectum) 09/07/2022 10:30 AM CDT 09/08/2022 2:42 PM CDT Zhane Damontamara DO URINE Final Result [employer] (CLIA #:[id number]) [place] [address], * ANTI HCV (06/25/2020 7:57 AM [employer]S TEACHER) HEPATITIS C ANTIBODY Non-React adithya Non-React adithya 06/25/2020 3:43 PM [employer] INDUSTRIAL ARTS TEACHER [facility] Comment:Antibodies to HCV no t detected; does not exclude the possibility of exposure to HCV. Blood BLOOD SPECIMEN / Unknown Butterfly / Unknown 06/25/2020 7:57 AM [employer] IND[employer]RIAL ARTS TEACHER 06/25/2020 8:25 AM [employer] IND[employer]RIAL ARTS TEACHER Brandan Woodard MD SEND OUTS Final Res ult [facility] [address] [place] [address], * ANTI HIV 1/2 (06/25/2020 7:57 AM [employer]ER) HIV-1/HIV-2 ANTIBODY Non-Reacti ve Non-Reacti ve 06/25/2020 3:44 PM [employer] TEACHER [facility] Comment:HIV-1 p24 and HIV-1/ HIV-2 Ab not detected. Blood BLOOD SPECIMEN / Unknown Butterfly / Unknown 06/25/2020 7:57 AM [employer] TE[employer]ER 06/25/2020 8:25 AM H[employer] TE[employer]ER us Brandan Woodard MD SEND OUTS Final Res ult [facility] 

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
--- NOTE | 2024-04-27 14:55 | CRLHL7_ITS ---
For Patients: As a result of the Century Cures Act, medical imaging exams and procedure reports are released immediately into your electronic medical record. You may view this report before your referring provider. If you have questions, please contact your health care provider. INDICATION: Altered mentation. TECHNIQUE: CT head without contrast. COMPARISON: CT head May 14, 2023 FINDINGS: CSF spaces: Within normal limits for age. Mild diffuse volume loss. Brain parenchyma: The vargas-white differentiation is normal. No sign of mass, hemorrhage, or midline shift. Minor stable areas of decreased attenuation in the white matter consistent with mild small vessel ischemic/degenerative changes Skull base and calvarium: The visualized paranasal sinuses and mastoid air cells are clear. The visualized orbits are grossly unremarkable. No skull fractures. IMPRESSION: No acute or new intracranial abnormalities. Please note that all CT scans at this facility use dose modulation, iterative reconstruction, and/or weight-based dosing when appropriate to reduce radiation dose to as low as reasonably achievable. Dictated by Leno Becerril MD @ 04/27/2024 3:39:47 PM (Electronically Signed)
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
[2024-04-27 15:02] LABS: Lactate* 1.4 mmol/L (0.5-1.9)
[2024-04-27 15:05] LABS: Basophils Absolute Auto 0.02 K/uL (0.00-0.30); Basophils Percent Auto 0.3 % (0.0-3.0); Eosinophils Absolute Auto 0.01 K/uL (0.00-0.50); Eosinophils Percent Auto 0.1 % (0.0-7.0); Hematocrit 34.2 % (37.0-53.0); Hemoglobin* 11.8 gm/dL (13.5-17.5); Immature Granulocytes Abs Auto 0.06 K/uL (0.00-0.30); Immature Granulocytes Pct Auto 0.8 %; Lymphocytes Absolute Auto 1.72 K/uL (0.90-2.90); Lymphocytes Percent Auto 23.4 % (20-44); Mean Corpuscular HGB Conc 35 gm/dL (32-36); Mean Corpuscular Hemoglobin 29 pg (26-34); Mean Corpuscular Volume 85 fL (80-100); Monocytes Percent Auto 30.2 % (0.0-11.0); Neutrophils Absolute Auto 3.32 K/uL (1.7-7.0); Neutrophils Percent Auto 45.2 % (42.0-72.0); Platelet Count* 143 K/uL (140-440); RDW Coefficient of Variation % 12.9 % (11.5-15.5); Red Blood Count 4.03 m/uL (4.30-5.90); White Blood Count* 7.35 K/uL (4.50-11.00)
[2024-04-27 15:06] LABS: Troponin, Point-of-Care* 0.02 ng/ml (0.01-0.04)
[2024-04-27 15:19] LABS: Slide Review Reflex No
[2024-04-27 15:24] LABS: Albumin* 3.7 g/dL (3.3-5.0); Chloride* 91 mmol/L (96-114)
[2024-04-27 15:27] LABS: Alanine Aminotransferase* 16 U/L (4-50); Alkaline Phosphatase* 43 U/L (40-150); Anion Gap 8 mEq/L (7-15); Aspartate Amino Transferase* 35 U/L (12-35); Bilirubin Total* 0.6 mg/dL (0.1-1.5); Blood Urea Nitrogen* 28 mg/dL (7-30); Carbon Dioxide* 22 mmol/L (20-32); Creatinine* 1.3 mg/dL (0.5-1.5); Est. Creatinine Clearance* 67.07; Estimated Glomerular Filt Rate 65 ml/min; Glucose* 77 mg/dL (60-115); Total Protein* 6.6 g/dL (6.0-8.3)
[2024-04-27 15:27] LABS: PCR FLU A POSITIVE PCR FLU A (Negative); PCR FLU B Negative PCR FLU B (Negative); PCR RSV Negative PCR RSV (Negative); SARS PCR* POSITIVE SARS-CoV-2 (Negative)
[2024-04-27 15:28] LABS: Calcium* 8.4 mg/dL (8.4-10.6)
[2024-04-27 15:36] LABS: Ethanol* < 0.01 % (0.01-0.03); Sodium* 121 mmol/L (135-149)
[2024-04-27] MEDS: 0.9 % SODIUM CHLORIDE 500 ML 500 ML IV (15:55)
[2024-04-27 15:57] LABS: Appearance Urine Clear (Clear); Bilirubin Urine Negative (Negative); Blood Urine 1+ (Negative); Color Urine Yellow (Yellow); Glucose Urine 3+ (Negative); Ketones Urine Trace (Negative); Leukocyte Esterase Urine Negative (Negative); Nitrite Urine Negative (Negative); Protein Urine 3+ (Negative); Specific Gravity Urine 1.015 (1.000-1.030); Urobilinogen Urine 0.2 (0.2-1.0); pH Urine 6.5 (5.0-8.5)
[2024-04-27] MEDS: ACETAMINOPHEN 325 MG TABLET 650 MG PO (16:05)
[2024-04-27 16:07] LABS: Cannabinoid Screen Urine Negative (Negative); Cocaine Screen Urine Negative (Negative); Methamphetamines Screen Urine Negative (Negative); Opiate Screen Urine Negative (Negative); Phencyclidine Screen Urine Negative (Negative)
[2024-04-27 16:08] LABS: Amphetamine Screen Urine Negative (Negative); Barbiturate Screen Urine Negative (Negative); Benzodiazepines Screen Urine POSITIVE (Negative); Methadone Screen Urine Negative (Negative); Oxycodone Screen Urine Negative (Negative); Tricyclic Antidepressant Urine POSITIVE (Negative)
[2024-04-27 16:35] LABS: RBC Urine 0-2 (0-2); Squamous Epithelial Cell Urine Few (None-Few); WBC Urine 0-2 (0-5)
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
[2024-04-27 19:45] LABS: Sodium* 121 mmol/L (135-149)
[2024-04-27] MEDS: DIVALPROEX DELAYED RELEASE 250 MG TABLET 1000 MG PO (21:36)
[2024-04-27] MEDS: BUSPIRONE 10 MG TABLET 30 MG PO (21:36)
[2024-04-27] MEDS: QUETIAPINE 100 MG TABLET PO (21:37)
[2024-04-27] MEDS: METFORMIN 1,000 MG TABLET 1000 MG PO (21:37)
[2024-04-27] MEDS: ROSUVASTATIN CALCIUM 10 MG TABLET 20 MG PO (21:37)
[2024-04-27] MEDS: ALPRAZolam 0.25 MG TABLET PO (21:37)
[2024-04-27] MEDS: GABAPENTIN 300 MG CAPSULE 600 MG PO (21:38)
[2024-04-27] MEDS: INSULIN GLARGINE,HUM.REC.ANLOG 100 UNIT/ML INSULN.PEN 20 UNIT SUBCUT (21:41)
[2024-04-27] MEDS: SODIUM CHLORIDE 0.9 % (FLUSH) 10 ML SYRINGE 5 ML IVF (21:46)
--- NOTE | 2024-04-27 23:34 | PC.NURSE ---
End of shift: Pt arrived to unit @ 1805. Pt AxOx4, cooperative, and pleasant. Pt reported back pain, database report writer utilized reposition. Relief noted with inactivity. Pt tolerating diabetic diet and fluids well. Pt had 4 loose stools during shift and urinated frequently. Pt does not use call light appropriately. Bed alarm in place. IV SL. VSS on RA. SBA. Pt appears resting with call light in reach.
[2024-04-28] VITALS (9 sets, daily range): BP systolic 87–164; BP diastolic 57–76; PULSE 74–87; RESP 16–18; TEMP 36.5–37.2; O2SAT 90–99
[2024-04-28] MEDS: ACETAMINOPHEN 325 MG TABLET PO (05:53)
[2024-04-28] MEDS: LOPERAMIDE HCL 2 MG CAPSULE PO (06:59)
[2024-04-28] MEDS: BENZONATATE 100 MG CAPSULE PO (07:00)
[2024-04-28 07:19] LABS: Basophils Absolute Auto 0.02 K/uL (0.00-0.30); Basophils Percent Auto 0.4 % (0.0-3.0); Hematocrit 33.1 % (37.0-53.0); Hemoglobin* 11.4 gm/dL (13.5-17.5); Immature Granulocytes Abs Auto 0.01 K/uL (0.00-0.30); Immature Granulocytes Pct Auto 0.2 %; Lymphocytes Absolute Auto 1.81 K/uL (0.90-2.90); Lymphocytes Percent Auto 34.2 % (20-44); Mean Corpuscular HGB Conc 34 gm/dL (32-36); Mean Corpuscular Hemoglobin 30 pg (26-34); Mean Corpuscular Volume 86 fL (80-100); Monocytes Percent Auto 30.9 % (0.0-11.0); Neutrophils Percent Auto 34.3 % (42.0-72.0); Platelet Count* 145 K/uL (140-440); RDW Coefficient of Variation % 13.1 % (11.5-15.5); Red Blood Count 3.84 m/uL (4.30-5.90)
[2024-04-28 07:35] LABS: Chloride* 96 mmol/L (96-114); Potassium* 4.3 mmol/L (3.6-5.1); Sodium* 125 mmol/L (135-149)
[2024-04-28 07:36] LABS: Slide Review Reflex No
[2024-04-28 07:38] LABS: Anion Gap 7 mEq/L (7-15); Carbon Dioxide* 22 mmol/L (20-32); Est. Creatinine Clearance* 87.19; Estimated Glomerular Filt Rate 89 ml/min
[2024-04-28 07:39] LABS: Blood Urea Nitrogen* 34 mg/dL (7-30); Calcium* 8.4 mg/dL (8.4-10.6); Glucose* 93 mg/dL (60-115)
--- NOTE | 2024-04-28 07:45 | PC.NURSE ---
End of shift note [id number]: Pt noted to be alert & oriented x 4 upon assessment and stated, ?I am feeling better than when I first got here?. He did require education regarding importance of adhering to fluid restriction to help treat hyponatremia. Pt continent of bowel and bladder. He was noted to have had one loose stool with sample sent to lab to test for C. diff. PRN Loperamide administered per order. Pt has been afebrile and on RA throughout the shift. Pt denied pain when asked. He is transferring with SBA using SPC. Blood glucose of 104 with 0200 check. At approximately 0640 this morning rn charge noted pt to have slight ST elevation to tele monitor. 12 lead EKG was then completed PSO. Result stated: NSR with ST and T wave abnormality, consider inferior ischemia. Levers Lace Machine Operator assessed pt and noted VS: B/P 128/71, R 16, O2 sat 94% and HR of 77. Pt denied chest pain when asked. Levers Lace Machine Operator updated Dr. Ramirez with EKG results and pt's vital signs. MD ordering ECHO and Troponin to be checked. Bed alarm on and call light within reach.
[2024-04-28 08:08] LABS: Troponin I* < 0.01 ng/mL (0.01-0.04)
[2024-04-28] MEDS: FUROSEMIDE 20 MG TABLET PO (08:34)
[2024-04-28] MEDS: BUSPIRONE 10 MG TABLET 30 MG PO ×2 (08:35→20:49)
[2024-04-28] MEDS: ASPIRIN 81 MG TABLET EC PO (08:35)
[2024-04-28] MEDS: ALPRAZolam 0.25 MG TABLET PO ×2 (08:35→20:49)
[2024-04-28] MEDS: METFORMIN 1,000 MG TABLET 1000 MG PO ×2 (08:35→20:50)
[2024-04-28] MEDS: EMPAGLIFLOZIN 10 MG TABLET PO (08:36)
[2024-04-28] MEDS: lisinopriL 10 MG TABLET PO (08:36)
[2024-04-28] MEDS: SODIUM CHLORIDE 0.9 % (FLUSH) 10 ML SYRINGE 5 ML IVF ×2 (08:36→20:55)
[2024-04-28 08:59] LABS: C.Difficile Negative (Negative); CDIFFEPI 027 PRESUMPTIVE NEGATIVE (Negative)
[2024-04-28] MEDS: GABAPENTIN 300 MG CAPSULE 600 MG PO ×3 (10:14→20:50)
[2024-04-28] MEDS: DIVALPROEX SODIUM ER TAB 250 MG 1000 MG PO ×2 (10:14→20:49)
[2024-04-28] MEDS: NICOTINE 2 MG LOZENGE BUCCAL ×4 (10:46→20:54)
[2024-04-28] MEDS: INSULIN ASPART 100 UNIT/ML 7 UNIT SUBCUT (12:22)
--- NOTE | 2024-04-28 15:38 | PC.NURSE ---
End of Shift: Patient pleasant and cooperative, A&O. VSS, afebrile. SpO2 maintained above 90% on RA this shift. Patient denies pain this shift. Scheduled insulin given per MD. SBA with cane. Tolerating 1500ml fluid restriction. Tolerating regular diet.
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
[2024-04-28] MEDS: BENZOCAINE/MENTHOL 1 EACH LOZENGE MUCOUS MEM ×2 (18:42→20:50)
[2024-04-28] MEDS: QUETIAPINE 100 MG TABLET 200 MG PO (20:50)
[2024-04-28] MEDS: ROSUVASTATIN CALCIUM 10 MG TABLET 20 MG PO (20:50)
[2024-04-28] MEDS: INSULIN GLARGINE,HUM.REC.ANLOG 100 UNIT/ML INSULN.PEN 20 UNIT SUBCUT (20:58)
[2024-04-28] MEDS: INSULIN ASPART 100 UNIT/ML SUBCUT (21:02)
--- NOTE | 2024-04-28 22:18 | PC.NURSE ---
End of Shift: Patient pleasant and cooperative, A&O. VSS, afebrile. Patient denies pain this shift. SBA. Tolerating 1500ml fluid restriction. Pt had a bagel this evening and Pt reported 1 bottom tooth came out. Tooth at bedside. Pt showered this evening. Pt makes needs known and uses call light appropriately. Pt appears resting with call light in reach.
[2024-04-29 03:00] VITALS: BP 144/76; PULSE 87; RESP 16; TEMP 36.8; O2SAT 93
--- NOTE | 2024-04-29 06:46 | PC.NURSE ---
Shift note: Pt has been calm throughout the night. SBA to BR. Alert but occasionally confuse. Dressing changed this morning at 0645. Doing on RA with O2>90%. No fever, cough or SOB recorded. He reported that he want to be discharge today. This was said at 0430. Pt checked time and realized it was not even possible for discharge at that time. Explanation about the hospital protocol with regards to discharge was given. He appeared to recovering well, however, he continue to have this kind of tremors and shaky when ambulating.
[2024-04-29 06:54] LABS: Chloride* 102 mmol/L (96-114)
[2024-04-29 06:55] LABS: Potassium* 4.9 mmol/L (3.6-5.1); Sodium* 131 mmol/L (135-149)
[2024-04-29 06:57] LABS: Est. Creatinine Clearance* 87.19; Estimated Glomerular Filt Rate 89 ml/min
[2024-04-29 06:58] LABS: Anion Gap 8 mEq/L (7-15); Blood Urea Nitrogen* 41 mg/dL (7-30); Calcium* 8.4 mg/dL (8.4-10.6); Carbon Dioxide* 21 mmol/L (20-32); Glucose* 91 mg/dL (60-115)
[2024-04-29 07:00] VITALS: BP 150/81; PULSE 96; RESP 18; TEMP 37.3; O2SAT 96
[2024-04-29 07:13] LABS: Troponin I* < 0.01 ng/mL (0.01-0.04)
[2024-04-29] MEDS: GABAPENTIN 300 MG CAPSULE 600 MG PO (08:29)
[2024-04-29] MEDS: NICOTINE 2 MG LOZENGE BUCCAL (08:29)
[2024-04-29] MEDS: FUROSEMIDE 20 MG TABLET PO (08:29)
[2024-04-29] MEDS: EMPAGLIFLOZIN 10 MG TABLET PO (08:29)
[2024-04-29] MEDS: DIVALPROEX SODIUM ER TAB 250 MG 1000 MG PO (08:29)
[2024-04-29] MEDS: BUSPIRONE 10 MG TABLET 30 MG PO (08:29)
[2024-04-29] MEDS: ASPIRIN 81 MG TABLET EC PO (08:30)
[2024-04-29] MEDS: lisinopriL 10 MG TABLET PO (08:30)
[2024-04-29] MEDS: ALPRAZolam 0.25 MG TABLET PO (08:30)
[2024-04-29] MEDS: METFORMIN 1,000 MG TABLET 1000 MG PO (08:30)
--- NOTE | 2024-04-29 10:21 | PC.NURSE ---
Discharge: The patient discharged home, all belongings were sent with the patient. The patient was notified of his appointment tomorrow to follow up on his BG and his sodium level. All other questions were answered. Herlinda FINCH BSN
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
== END 2024-04-29 10:10 | disposition home or self-care (01) | DRG 70 ==
LOC: ED 15:56 → MEDSURG 16:26
PROVIDERS: Admitting Provider Family Medicine; Emergency Provider Family Medicine; PCP Family Medicine; Visit Provider Family Medicine
DX: G93.41 Metabolic encephalopathy (principal); U07.1 COVID-19; E87.1 Hypo-osmolality and hyponatremia; L97.419 Non-pressure chronic ulcer of right heel and midfoot with unspecified severity; J10.81 Influenza due to other identified influenza virus with encephalopathy; R94.31 Abnormal electrocardiogram [ECG] [EKG]; E11.42 Type 2 diabetes mellitus with diabetic polyneuropathy; E11.3299 Type 2 diabetes mellitus with mild nonproliferative diabetic retinopathy without macular edema, unspecified eye; Z79.4 Long term (current) use of insulin; F31.9 Bipolar disorder, unspecified; F41.1 Generalized anxiety disorder; E66.9 Obesity, unspecified; I25.10 Atherosclerotic heart disease of native coronary artery without angina pectoris; R63.1 Polydipsia; I25.2 Old myocardial infarction; Z68.28 Body mass index [BMI] 28.0-28.9, adult; E78.5 Hyperlipidemia, unspecified; E11.621 Type 2 diabetes mellitus with foot ulcer; L97.522 Non-pressure chronic ulcer of other part of left foot with fat layer exposed; Z79.84 Long term (current) use of oral hypoglycemic drugs
CPT/HCPCS: 36415; 70450; 71046; 72100; 80048; 80053; 80306; 81001; 82077; 82962; 83605; 84295; 84484; 85025; 87040; 87081; 87493; 87631; 93005; 93306; 97165; 99284; 99285; A9270; J1815; J7030

== ENCOUNTER 2024-04-30 11:21 | Outpatient (CLI) | payer MEDICARE, MEDICAID, SELFPAY | END 2024-04-30 11:22 | disposition home or self-care (01) | LOC: AMB 05-16 07:29 | PROVIDERS: PCP Family Medicine; Visit Provider Emergency Medicine Emergency Medical Services | DX: R56.9 Unspecified convulsions (principal); R00.1 Bradycardia, unspecified | CPT/HCPCS: A0425; A0427 ==

== ENCOUNTER 2024-04-30 12:01 | Inpatient (IN) | payer MEDICARE, MEDICAID, SELFPAY ==
[2024-04-30] VITALS (50 sets, daily range): BP systolic 114–172; BP diastolic 61–116; PULSE 67–84; RESP 16–18; TEMP 36.2; O2SAT 81–100; BMI 28.0; BMI 27.6
--- OUTSIDE RECORDS SUMMARY | 2024-04-30 12:04 | XMS_ITS | Clinical Summary ---
Author Organization [employer] [facility] Address [place], [place] [address] Care Team Providers Care Clock Repair Technician Name Role Phone Glenys Alcantar MD Unavailable [phone] [facility], [facility] Unavailable [phone] Zhane Stanley DO Primary Care Provider [phone] Samanhta Grayson PharmD Unavailable Allergies Active Allergy Reactions Criticality Noted Date [...] 90 Tablet 3 024 Active Insulin Safety Clyman, Disp, 30 gauge x ndications: Type 2 [...] 3) soln As directed. Act adithya menthol (Norco Cough Drops) 3.2 mg lozg Dissolve 1 [...] identified November 2010 at 39 mg/g (from [id number], values arranged between 80-150 mg/g). Recent values [...] Encounters Date Type Department Care Team Description 04/30/[address] [facility] [address] [place] [address] Johan Ye MD Late Cancel Appointment 04/28/2024 1:00 PM NURSE OUTREACH CASE MANAGER Ancillary Procedure [address] [address] Arrived 04/28/2024 Ancillary Orders [address] [address] Demario Ramirez MD 04/23/[address] [facility] [address] [place] [address] Zhane Stanley, DO Refill Request (True Metrix strips) 04/13/[address] [facility] [address] [place] [address] Zhane Stanley, DO Questions (appointment) 04/12/[address] [facility] [address] [place] [address] Johan Ye MD UPDATE 04/04/2024 2:00 PM NURSE OUTREACH CASE MANAGER Office Visit [facility] [address] [place] [address] Nathan Matthews MD CV Vascular New (Consult; iliac arterial stenosis. ) 04/04/2024 1:15 PM NURSE OUTREACH CASE MANAGER - 04/04/2024 11:59 PM NURSE OUTREACH CASE MANAGER Hospital Encounter [facility] [address] [place] [address] Gagandeep Manuel NP Moore, Brian H PAD (peripheral artery disease) (HC) 04/04/2024 Travel 04/03/[address] [facility] [address] [place] [address] Zhane Stanley Анна, DO Refill Request (Jardiance) 03/29/[address] [address] Johan Ye MD Letter 03/27/2024 1:00 PM NURSE OUTREACH CASE MANAGER Office Visit [address] [address] Johan Ye MD Medication Management 03/27/2024 Travel 03/23/[address] [address] Hardeep Reardon MD Questions (colonoscopy) 03/23/[address] [address] Ky Love MD 03/19/2024 9:00 AM NURSE OUTREACH CASE MANAGER Ancillary Procedure [facility] [address] [place] [address] 03/19/2024 Travel 03/15/2024 Telephone [facility] [address] [place] [address] Jorge A Morgan MD Referral 03/12/2024 Orders Only [facility] [address] [place] [address] Gagandeep Manuel NP <No scans attached> 03/09/2024 11:00 AM NURSE OUTREACH CASE MANAGER Office Visit [facility] [address] [place] [address] Zhane Stanley Анна, DO Derm Problem (Cellulitis follow up ) 03/09/2024 9:30 AM NURSE OUTREACH CASE MANAGER Office Visit [address] [address] Johan Ye MD Medication Management (medications reviewed yesterday 03/08/24 at appointment) 03/08/2024 10:50 AM NURSE OUTREACH CASE MANAGER Office Visit [facility] [address] [place] [address] Hardeep Reardon MD Foot Pain/problem (Cellulitis on both feet) 03/08/2024 Travel 03/07/[address] [facility] [address] [place] [address] Zhane Stanley Анна, DO Refill Request (Metformin, Furosemide, Gabapentin, gavilax) 03/05/[address] [facility] [address] [place] [address] Zhane Stanley Анна, DO Refill Request (GAVILAX) 03/05/[address] [facility] [address] [place] [address] Jacqueline Oliver RN Primary RN Care Management; Hospital F/U (LACE 23/) 03/01/2024 1:04 PM NURSE OUTREACH CASE MANAGER - 03/03/2024 11:55 AM NURSE OUTREACH CASE MANAGER Hospital Encounter [facility] [address] [place] [address] Marco Antonio Goodwin, Cellulitis in diabetic foot (HC) (Primary Dx) Discharge Disposition: Home Self Care 03/01/2024 7:00 AM NURSE OUTREACH CASE MANAGER Office Visit [facility] [address] [place] [address] Anabel Sanchez MD Foot Problem (Sores on [...] X1 week.) 03/01/2024 Travel 02/27/[address] [facility] [address] [place] [address] Shaqra, Zhane Анна, DO Foot Pain/problem (L heel ) 02/15/[address] [facility] [address] [place] [address] Shaqra, Zhane Анна, DO NICOTINE JANNA 02/13/2024 1:00 PM CDT Office Visit [facility] [address] [place] [address] Hardeep Reardon MD Diarrhea (Having liquid bowel movements while sleeping x4. Unaware of needing to use the restroom. ) 02/13/[address] [facility] [address] [place] [address] Ky Love MD Chart Review 02/13/2024 Travel 02/07/[address] [facility] [address] [place] [address] Nelsonqra, Zhane Анна, DO Refill Request (Jardiance) 02/03/2024 9:30 AM CDT Office Visit [facility] [address] [place] [address] Johan Ye MD Follow Up; Medication Management (Discuss medications) 02/03/[address] [facility] [address] [place] [address] Johan Ye MD Refill Request; PROPRANOLOL 02/03/2024 Travel from Last 3 Months Immunizations Name Administration Dates Next Due COVID-19 vaccine (Nubimetrics-Bio NTech 30mcg/0.3mL) 12YO+ KATHERINE-SUCROSE PF MDV 10/01/2021 COVID-19 vaccine (Nubimetrics-Bio NTech 30mcg/0.3mL) PF MDV 09/16/2020,08/26/2020 Hepatitis B (Adult) 03/02/2023,08/18/2020,2018 INFLUENZA, [...] as did not want interactions with medication [facility] Utilities Answer Date Recorded Do you [...] on file Legal Sex Male 6:52 AM NURSE OUTREACH CASE MANAGER Gender Identity Not on file Sexual Orientation Not on file Occupation Industry Job Start Date Job End Date unemployed Not on file Not on file Not on file Obstetrics History Last Filed Vital Signs Vital Sign Reading Time Taken Comments Blood Pressure 132/78 04/04/2024 2:00 PM NURSE OUTREACH CASE MANAGER Pulse 69 04/04/2024 2:00 PM NURSE OUTREACH CASE MANAGER Temperature 37.2 C (99 F) 03/03/2024 7:48 AM NURSE OUTREACH CASE MANAGER Respiratory Rate 16 04/04/2024 2:00 PM NURSE OUTREACH CASE MANAGER Oxygen Saturation 96% 04/04/2024 2:00 PM NURSE OUTREACH CASE MANAGER Inhaled Oxygen Concentration - - Weight 90.7 kg (200 lb) 04/04/2024 2:00 PM NURSE OUTREACH CASE MANAGER Height 177.8 cm (5' 10) 04/04/2024 2:00 PM NURSE OUTREACH CASE MANAGER Body Mass Index 28.7 04/04/2024 2:00 PM NURSE OUTREACH CASE MANAGER Plan of Treatment Upcoming Encounters Date Type Department Care Team (Late st Contact Info) Description 05/07/2024 1:50 PM NURSE OUTREACH CASE MANAGER Office [facility] [address] [place] [address] Hardeep Reardon MD [address] [place] [address] 05/16/2024 11:00 AM NURSE OUTREACH CASE MANAGER Office [facility] [address] [place] [address] Zhane Stanley DO [address] [place] [address] 05/21/2024 10:00 AM NURSE OUTREACH CASE MANAGER Office [facility] [address] [place] [address] Johan Ye MD [address] [place] [address] 06/05/2024 12:30 PM NURSE OUTREACH CASE MANAGER Office [facility] [address] [place] [address] Johan Ye MD [address] [place] [address] Health Maintenance Due Date Last Done Comments Low Dose CT (for lung CA) ag e 50-80 03/19/2025 03/19/2024, 02/14/2023, 12/21/2021, Additional history exists Depression screening for age 12+ 03/29/2025 03/29/2024, 03/27/2024, 03/12/2024, Additional history exists BMI (ht and wt on same day) for age 18+ 04/04/2025 04/04/2024, 11/14/2023, 09/12/2023, Additional history exists Fecal testing sDNA-FIT (Critz guard) for age 45-75 09/07/2025 09/07/2022 Tetanus booster 11/03/2025 11/04/2015, 08/24, 11/12/1998 Lipids for age 45-75 11/13/2028 11/14/2023, 07/02/2022, 05/25/2022, Additional history exists Tdap Completed 11/04/2015, 09/15/2005 HIV for age 15-65 Completed 06/25/2020 Hepatitis C screening for ag e 18-79 Completed 06/25/2020 Hepatitis B series for Diabetes Completed 03/02/2023, 08/18/2020, 12/18/2018 Pneumococcal series for age 50+ Completed , 10/08/2009 Zoster (shingles) series for age 50+ Completed 06/06/2023, 03/07/2023 COVID-19 vaccine series Completed 01/31/20, 08/04/2023, 02/07/2023, Additional history exists Influenza for age 50-64 Completed 01/31/20, 02/07/2023, 02/02/2022, Additional history exists Procedures Procedure Name Priority Date/Time Associated Diagnosis Comments ECHO TTE COMPLETE WO CONTRAST Routine 04/28/2024 3:18 PM NURSE OUTREACH CASE MANAGER EKG, abnormal US ROB W TOE PRESSURES BILATERAL Routine 04/04/2024 1:58 PM NURSE OUTREACH CASE MANAGER PAD (peripheral artery disease) (HC) CT CHEST SCREENING LOW DOSE WO CONTRAST Routine 03/19/2024 9:12 AM NURSE OUTREACH CASE MANAGER Encounter for screening for lung cancer Former smoker IRON PLUS IRON BINDING CAP Routine 03/08/2024 12:02 PM NURSE OUTREACH CASE MANAGER Anemia of unknown etiology HEMOGLOBIN Routine 03/08/2024 12:02 PM NURSE OUTREACH CASE MANAGER Anemia of unknown etiology BASIC METABOLIC PANEL Routine 03/08/2024 12:02 PM NURSE OUTREACH CASE MANAGER Hyperkalemia GLUCOSE METER Routine 03/03/2024 11:03 AM NURSE OUTREACH CASE MANAGER GLUCOSE METER Routine 03/03/2024 7:48 AM NURSE OUTREACH CASE MANAGER C-REACTIVE PROTEIN Early AM 03/03/2024 6: 34 AM NURSE OUTREACH CASE MANAGER SODIUM Early AM 03/03/2024 6:34 AM NURSE OUTREACH CASE MANAGER HEMOGLOBIN Early AM 03/03/2024 6:34 AM NURSE OUTREACH CASE MANAGER CREATININE Early AM 03/03/2024 6:34 AM NURSE OUTREACH CASE MANAGER POTASSIUM Early AM 03/03/2024 6:34 AM NURSE OUTREACH CASE MANAGER MAGNESIUM Early AM 03/03/2024 6:34 AM NURSE OUTREACH CASE MANAGER GLUCOSE METER Routine 03/02/2024 8:55 PM NURSE OUTREACH CASE MANAGER GLUCOSE METER Routine 03/02/2024 6:33 PM NURSE OUTREACH CASE MANAGER GLUCOSE METER Routine 03/02/2024 11:37 AM NURSE OUTREACH CASE MANAGER GLUCOSE METER Routine 03/02/2024 8:59 AM NURSE OUTREACH CASE MANAGER CT ANGIO LOWER EXTREMITY BILAT RUNOFF Early AM 03/02/2024 8:29 AM NURSE OUTREACH CASE MANAGER C-REACTIVE PROTEIN COLLETTE 03/02/2024 5: 49 AM NURSE OUTREACH CASE MANAGER HEMOGLOBIN Early AM 03/02/2024 5:49 AM NURSE OUTREACH CASE MANAGER WHITE BLOOD COUNT Early AM 03/02/2024 5:4 9 AM NURSE OUTREACH CASE MANAGER MAGNESIUM Early AM 03/02/2024 5:49 AM NURSE OUTREACH CASE MANAGER CREATININE Early AM 03/02/2024 5:49 AM NURSE OUTREACH CASE MANAGER POTASSIUM Early AM 03/02/2024 5:49 AM NURSE OUTREACH CASE MANAGER SODIUM Early AM 03/02/2024 5:49 AM NURSE OUTREACH CASE MANAGER GLUCOSE METER Routine 03/01/2024 9:17 PM NURSE OUTREACH CASE MANAGER GLUCOSE METER Routine 03/01/2024 6:00 PM NURSE OUTREACH CASE MANAGER EKG 12 LEAD [place] 03/01/2024 3:32 PM NURSE OUTREACH CASE MANAGER MRSA/SA PCR Today 03/01/2024 2:52 PM NURSE OUTREACH CASE MANAGER MAGNESIUM COLLETTE 03/01/2024 2:11 PM NURSE OUTREACH CASE MANAGER CBC WITH AUTO DIFFERENTIAL COLLETTE 03/01/2024 2:11 PM NURSE OUTREACH CASE MANAGER LACTATE VENOUS [place] 03/01/2024 2:11 PM NURSE OUTREACH CASE MANAGER PROCALCITONIN [place] 03/01/2024 2:11 PM NURSE OUTREACH CASE MANAGER SEDIMENTATION RATE [place]TTE 03/01/2024 2: 11 PM NURSE OUTREACH CASE MANAGER C-REACTIVE PROTEIN COLLETTE 03/01/2024 2: 11 PM NURSE OUTREACH CASE MANAGER COMP METABOLIC PANEL COLLETTE 03/01/2024 2:11 PM NURSE OUTREACH CASE MANAGER CBC WITH AUTO DIFFERENTIAL COLLETTE 03/01/2024 2:11 PM NURSE OUTREACH CASE MANAGER XR FOOT 3 VIEWS LEFT STAT 03/01/2024 2:03 PM NURSE OUTREACH CASE MANAGER XR FOOT 3 VIEWS RIGHT STAT 03/01/2024 2:01 PM NURSE OUTREACH CASE MANAGER LIPID PANEL W REFLEX MEASURED LDL Routine 11/14/2023 9:06 AM CDT Hyperlipidemia with target LDL less than 70 SDNA-FIT EXTERNAL (COLOGUARD) Routine 09/07/2022 10:30 AM CDT Screening for colon cancer ANTI HIV 1/2 COLLETTE 06/25/2020 7:57 AM NURSE OUTREACH CASE MANAGER ANTI HCV [place] 06/25/2020 7:57 AM NURSE OUTREACH CASE MANAGER from Last 3 Months or Most Recently Relevant to Health Maintenance Results * ECHO TTE COMPLETE WO CONTRAST (04/28/2024 3:18 PM NURSE OUTREACH CASE MANAGER) AORTIC VALVE MEAN PG 8 mmHg EJECTION FRACTION 58 % LVEDD 5.1 cm EJECTION FRACTION 55 - 60% Anatomical Region Laterality Modality Ultrasound 04/28/2024 2:30 PM NURSE OUTREACH CASE MANAGER Narrative 04/28/2024 4:15 PM NURSE OUTREACH CASE MANAGER ECHOCARDIOGRAM SHARLENE KRISHNAMURTHY : 1970 54 years Study Date: 04/28/2024 2:30:17 PM Gender: M BP: 117/68 mmHg Height: 178.00 cm BSA: 2.09 m Weight: 91.00 kg Tech: WILMA Referring MD: DEMARIO RAMIREZ Site: [facility] Reading Location: [facility] Patient Location: Inpatient. Procedure: 2D, Color Doppler and Spectral Doppler. Indication for study: new Inf ST-T changes Cardiac Rhythm: Normal sinus.Study quality: Good. Final Impressions: 1. Normal left ventricular size, mildly increased wall thickness, normal global systolic function, calculated EF of 58 %. 2. The aortic valve is calcified and trileaflet, mild to moderate stenosis and no regurgitation. The aortic valve peak velocity is 2.0 m/s, the peak gradient is 17 mmHg, and the mean gradient is 8 mmHg. The aortic valve area is 1.19 cm with a dimensionless index of 0.34. The stroke volume index is 25.7 ml/m . 3. The basal to mid inferior segments are not well visualized but are possibly hypokinetic. 4. No pericardial effusion. Chamber Sizes and Function Normal left ventricular size, mildly increased wall thickness, normal global systolic function, calculated EF of 58 %. The basal to mid inferior segments are not well visualized but are possibly hypokinetic. Left atrial size is mildly enlarged. Right ventricular cavity size is normal, global systolic RV function is normal. The right atrium is normal. Right atrial area is 14 cm . The pulmonary artery is of normal size and origin. The sinus of Valsalva is normal sized. The ascending aorta is normal sized. Valves, RV Pressures and Diastolic Function The aortic valve is calcified and trileaflet, mild to moderate stenosis and no regurgitation. The mitral valve is normal in structure, trace mitral regurgitation. Spectral Doppler shows Grade 1 pattern of LV diastolic filling. The tricuspid valve is normal in structure. Tricuspid regurgitation is trace regurgitation. The pulmonic valve is normal. No pulmonary regurgitation. TTE images do not appear adequate for transcather intervention with patient supine. Masses, Effusion, Shunts There is no pericardial effusion. The inferior vena cava is normal sized, respiratory size variation greater than 50%. No left to right shunting was detected by limited color flow Doppler interrogation of the interatrial septum. MEASUREMENTS AND CALCULATIONS 2-D Measurements and LV Function: LVID (d) 5.1 cm Planimetered EF 58 % LVID (s) 3.5 cm LV FS% (2D) 31 % IVS (d) 1.2 cm LVOT diameter 2.1 cm LVPW (d) 1.2 cm HR 78 bpm Ao Sinus 3.6 cm LA Vol index 34 ml/m2 Asc Ao 3.7 cm RA area 14 cm RV Max 4C (d) 3.7 cm Diastology: Mitral Tissue Doppler E Peak 0.7 m/s e', Septum 0.07 m/s A Peak 1.0 m/s e', Lateral 0.10 m/s E/A 0.6 E/e' Average 8.12 DT 274 msec Aortic Valve: Vmax 2.0 m/s BOAZ (V) 1.21 cm VTI 0.45 m BOAZ (I) 1.19 cm LVOT V max 0.7 m/s Max PG 17 mmHg LVOT VTI 0.16 m Mean PG 8 mmHg SV 54 ml Dim Index 0.34 SV index 26 ml/m CO 4.2 l/min CI 2.0 l/min/m Mitral Valve: MVA 2.8 cm MV P 1/2 79 msec Tricuspid Valve and estimated PA pressures: TAPSE 2.8 cm . This study was interpreted by an [facility] accredited facility. CC: HIM (med records) [facility], Med/Surg - IP [facility]. Final Procedure Note Silvia Roberts MD - 01/04/2025 ECHOCARDIOGRAM SHARLENE KRISHNAMURTHY : 1970 54 years Study Date: 04/28/2024 2:30:17 PM Gender: M BP: 117/68 mmHg Height: 178.00 cm BSA: 2.09 m Weight: 91.00 kg Tech: WILMA Referring MD: DEMARIO RAMIREZ Site: [facility] Reading Location: [facility] Patient Location: Inpatient. Procedure: 2D, Color Doppler and Spectral Doppler. Indication for study: new Inf ST-T changes Cardiac Rhythm: Normal sinus.Study quality: Good. Final Impressions: 1. Normal left ventricular size, mildly increased wall thickness, normalglobal systolic function, calculated EF of 58 %. 2. The aortic valve is calcified and trileaflet, mild to moderatestenosis and no regurgitation. The aortic valve peak velocity is 2.0 m/s,the peak gradient is 17 mmHg, and the mean gradient is 8 mmHg. The aorticvalve area is 1.19 cm with a dimensionless index of 0.34. The strokevolume index is 25.7 ml/m . 3. The basal to mid inferior segments are not well visualized but arepossibly hypokinetic. 4. No pericardial effusion. Chamber Sizes and Function Normal left ventricular size, mildly increased wall thickness, normalglobal systolic function, calculated EF of 58 %. The basal to mid inferiorsegments are not well visualized but are possibly hypokinetic. Left atrialsize is mildly enlarged. Right ventricular cavity size is normal, globalsystolic RV function is normal. The right atrium is normal. Right atrialarea is 14 cm . The pulmonary artery is of normal size and origin. Thesinus of Valsalva is normal sized. The ascending aorta is normal sized. Valves, RV Pressures and Diastolic Function The aortic valve is calcified and trileaflet, mild to moderate stenosisand no regurgitation. The mitral valve is normal in structure, tracemitral regurgitation. Spectral Doppler shows Grade 1 pattern of LVdiastolic filling. The tricuspid valve is normal in structure. Tricuspidregurgitation is trace regurgitation. The pulmonic valve is normal. Nopulmonary regurgitation. TTE images do not appear adequate for transcatherintervention with patient supine. Masses, Effusion, Shunts There is no pericardial effusion. The inferior vena cava is normal sized,respiratory size variation greater than 50%. No left to right shunting wasdetected by limited color flow Doppler interrogation of the interatrialseptum. MEASUREMENTS AND CALCULATIONS 2-D Measurements and LV Function: LVID (d) 5.1 cm Planimetered EF 58 % LVID (s) 3.5 cm LV FS% (2D) 31 % IVS (d) 1.2 cm LVOT diameter 2.1 cm LVPW (d) 1.2 cm HR 78 bpm Ao Sinus 3.6 cm LA Vol index 34 ml/m2 Asc Ao 3.7 cm RA area 14 cm RV Max 4C (d) 3.7 cm Diastology: Mitral Tissue Doppler E Peak 0.7 m/s e', Septum 0.07 m/s A Peak 1.0 m/s e', Lateral 0.10 m/s E/A 0.6 E/e' Average 8.12 DT 274 msec Aortic Valve: Vmax 2.0 m/s BOAZ (V) 1.21 cm VTI 0.45 m BOAZ (I) 1.19 cm LVOT V max 0.7 m/s Max PG 17 mmHg LVOT VTI 0.16 m Mean PG 8 mmHg SV 54 ml Dim Index 0.34 SV index 26 ml/m CO 4.2 l/min CI 2.0 l/min/m Mitral Valve: MVA 2.8 cm MV P 1/2 79 msec Tricuspid Valve and estimated PA pressures: TAPSE 2.8 cm . This study was interpreted by an [facility] accredited facility. CC: [facility] (med records) [facility], Med/Surg - IP [facility]. Final us Demario Ramirez MD ECHO ORD Final Result * US ROB W TOE PRESSURES BILATERAL (04/04/2024 1:58 PM NURSE OUTREACH CASE MANAGER) Anatomical Region Laterality Modality TOES Ultrasound 04/04/2024 1:38 PM NURSE OUTREACH CASE MANAGER Narrative 04/04/2024 5:30 PM NURSE OUTREACH CASE MANAGER VASCULAR ULTRASOUND REPORT SHARLENE KRISHNAMURTHY : 1970 Study Date: 04/04/2024 1:38:09 PM Age: 54 years Tech: CAROLA Gender: M Referring MD: GAGANDEEP MANUEL Site: [facility] Study performed: Lower extremity resting [...] range. +-------+ + RIGHT Phasicity +-------+ + COIL CUTTER DST multiphasic +-------+ + DPA multiphasic +-------+ + +-------+ + LEFT Phasicity +-------+ + COIL CUTTER DST multiphasic +-------+ + DPA multiphasic +-------+ + Criteria: Stenosis V. Ratio Mild <50% <2.0 Moderate 50-74% > or = 2.0 Severe 75-99% > or = 4.0 Occluded 100% no detectable flow Pressures +-----+ +--------+ +-----+ RIGHT (mmHg) LEFT (mmHg) +-----+ +--------+ +-----+ Index 191 Brachial 191 Index +-----+ +--------+ +-----+ 1.21 231 COIL CUTTER 222 1.16 +-----+ +--------+ +-----+ 1.24 236 DPA 221 1.16 +-----+ +--------+ +-----+ 0.82 156 Digit 1 154 0.81 +-----+ +--------+ +-----+ Gagandeep Andrews MD. Electronically signed on 04/04/2024 5:30:47 PM This study was performed and interpreted by a service accredited by the [employer] Accreditation Commission (IAC/Vascular), www.intersocietal.org/vascular Report generated by [employer]. Final Procedure Note Gagandeep Andrews MD - 04/04/2024 VASCULAR ULTRASOUND REPORT SHARLENE KRISHNAMURTHY : 1970 Study Date: 04/04/2024 1:38:09 PM Age: 54 years Tech: [facility] Gender: M Referring MD: GAGANDEEP MANUEL Site: [facility] Study performed: Lower extremity resting [...] range. +-------+ + RIGHT Phasicity +-------+ + COIL CUTTER DST multiphasic +-------+ + DPA multiphasic +-------+ + +-------+ + LEFT Phasicity +-------+ + COIL CUTTER DST multiphasic +-------+ + DPA multiphasic +-------+ + Criteria: Stenosis V. Ratio Mild <50% <2.0 Moderate 50-74% > or = 2.0 Severe 75-99% > or = 4.0 Occluded 100% no detectable flow Pressures +-----+ +--------+ +-----+ RIGHT (mmHg) LEFT (mmHg) +-----+ +--------+ +-----+ Index 191 Brachial 191 Index +-----+ +--------+ +-----+ 1.21 231 COIL CUTTER 222 1.16 +-----+ +--------+ +-----+ 1.24 236 DPA 221 1.16 +-----+ +--------+ +-----+ 0.82 156 Digit 1 154 0.81 +-----+ +--------+ +-----+ Gagandeep Andrews MD. Electronically signed on 04/04/2024 5:30:47 PM This study was performed and interpreted by a service accredited by theIntersocietal Accreditation Commission (IAC/Vascular),www.intersocietal.org/vascular Report generated by [employer]. Final us Gagandeep Manuel SATELLITE DISH TECHNICIAN US Yessenia waterman Result * CT CHEST SCREENING LOW DOSE WO CONTRAST (03/19/2024 9:12 AM NURSE OUTREACH CASE MANAGER) Anatomical Region Laterality Modality Computed Tomogra phy Impressions 03/21/2024 9:58 AM NURSE OUTREACH CASE MANAGER Stable study, Lung-RADS category 1 - Negative [...] 3:22:24 PM /sp Narrative 03/21/2024 9:58 AM NURSE OUTREACH CASE MANAGER For Patients: As a result of the 21st Century Cures Act, medical imaging exams and [...] PLUS IRON BINDING CAP (03/08/2024 12:02 PM NURSE OUTREACH CASE MANAGER) Pathologist [facility] IRON, TOTAL 75 50 - 180 mcg/dL [facility] IRON BINDING CAPACITY 271 250 - 425 mcg/dL (calc) [facility] % SATURATION 28 20 - 48 % (calc) [facility] Blood BLOOD SPECIMEN / Unknown 03/08/2024 12:02 PM NURSE OUTREACH CASE MANAGER 03/08/2024 12:02 PM NURSE OUTREACH CASE MANAGER Hardeep Reardon MD CHEMISTRY Final Result [employer] [facility] [address] [place] [address], [facility] [address] [place] [address] * (ABNORMAL) HEMOGLOBIN (03/08/2024 12:02 PM NURSE OUTREACH CASE MANAGER) Only the most recent of3 resultswithin the time period is included. HEMOGLOBIN 12.2(L) 13.2 - 17.1 g/dL [facility] Blood BLOOD SPECIMEN / Unknown 03/08/2024 12:02 PM NURSE OUTREACH CASE MANAGER 03/08/2024 12:02 PM NURSE OUTREACH CASE MANAGER Hardeep Reardon MD HEMATOLOGY Final Result Performing Organization Address City/[facility]/ZIP Co de Phone Number [employer] [facility] [address] [place] [address], [email or web address] [address] [place] [address] * (ABNORMAL) BASIC METABOLIC PANEL (03/08/2024 12:02 PM NURSE OUTREACH CASE MANAGER) GLUCOSE 148(H) 65 - 99 mg/dL [facility] Comment: Fasting reference interval For [...] BLOOD SPECIMEN / Unknown 03/08/2024 12:02 PM NURSE OUTREACH CASE MANAGER 03/08/2024 12:02 PM NURSE OUTREACH CASE MANAGER Hardeep Reardon MD CHEMISTRY Final Result [employer] [facility] [address] [place] [address], [facility] [address] [place] [address] * (ABNORMAL) GLUCOSE METER (03/03/2024 11:03 AM NURSE OUTREACH CASE MANAGER) Only the most recent of8 resultswithin the time period is included. GLUCOSE METER 251(H) 65 - 100 mg/dL 03/03/2024 11:08 AM [facility] Blood BLOOD SPECIMEN / Unknown 03/03/2024 11:03 AM NURSE OUTREACH CASE MANAGER 03/03/2024 11:08 AM NURSE OUTREACH CASE MANAGER Marco Antonio [employer] Management[employer]ian Desaist. [facility] DO CHEMISTRY Final Res ult Performing Organization Address [facility] Co de Phone Number [facility] [address] [place] [address] * (ABNORMAL) SODIUM (03/03/2024 6:34 AM NURSE OUTREACH CASE MANAGER) Only the most recent of2 resultswithin the time period is included. SODIUM 134(L) 136 - 145 mmol/L 03/03/2024 7:32 AM [facility] Blood BLOOD SPECIMEN / Unknown Venipuncture / Unknown 03/03/2024 6:34 AM NURSE OUTREACH CASE MANAGER 03/03/2024 6:52 AM NURSE OUTREACH CASE MANAGER [facility] [employer] DO CHEMISTRY Final Res ult [facility] [address] [place] [address] * (ABNORMAL) POTASSIUM (03/03/2024 6:34 AM NURSE OUTREACH CASE MANAGER) Only the most recent of2 resultswithin the time period is included. POTASSIUM 5.2(H) 3.5 - 5.1 mmol/L 03/03/2024 7:32 AM [facility] Blood BLOOD SPECIMEN / Unknown Venipuncture / Unknown 03/03/2024 6:34 AM NURSE OUTREACH CASE MANAGER 03/03/2024 6:52 AM NURSE OUTREACH CASE MANAGER Freya Roberts RN CHEMISTRY Final Result Performing Organization Address [facility]/ZIP Co de Phone Number [facility] [address] [place] [address] * (ABNORMAL) CREATININE (03/03/2024 6:34 AM NURSE OUTREACH CASE MANAGER) Only the most recent of2 resultswithin the time period is included. eGFR 79(L) >90 mL/min/1.7 3m2 03/03/2024 7:32 AM NURSE OUTREACH CASE MANAGER [facility] Comment:As of 2021, eG FR is calculated by the CKD-EPI creatinine equation without race adjustment. eGFR can be influenced by muscle mass, exercise, and diet. The reported eGFR is an estimation only and is only applicable if the renal function is stable. CREATININE 1.11 0.70 - 1.20 mg/dL 03/03/2024 7:32 AM NURSE OUTREACH CASE MANAGER [facility] Blood BLOOD SPECIMEN / Unknown Venipuncture / Unknown 03/03/2024 6:34 AM NURSE OUTREACH CASE MANAGER 03/03/2024 6:52 AM NURSE OUTREACH CASE MANAGER us Marco Antonio Goodwin DO CHEMISTRY Final Res ult Performing Organization Address City/[facility]/ZIP Co de Phone Number [facility] [address] [place] [address] * (ABNORMAL) C-REACTIVE PROTEIN (03/03/2024 6:34 AM NURSE OUTREACH CASE MANAGER) Only the most recent of3 resultswithin the time period is included. C-REACTIVE PROTEIN 4.6(H) <0.5 mg/dL 03/03/2024 7:32 AM NURSE OUTREACH CASE MANAGER [facility] Blood BLOOD SPECIMEN / Unknown Venipuncture / Unknown 03/03/2024 6:34 AM NURSE OUTREACH CASE MANAGER 03/03/2024 6:52 AM NURSE OUTREACH CASE MANAGER us Marco Antonio Pratt Lloyddinah DO CHEMISTRY Final Res ult Performing Organization Address [facility]/ZIP Co de Phone Number [facility] [address] [place] [address] * MAGNESIUM (03/03/2024 6:34 AM NURSE OUTREACH CASE MANAGER) Only the most recent of3 resultswithin the time period is included. MAGNESIUM 2.4 1.6 - 2.6 mg/dL 03/03/2024 7:32 AM NURSE OUTREACH CASE MANAGER [facility] Blood BLOOD SPECIMEN / Unknown Venipuncture / Unknown 03/03/2024 6:34 AM NURSE OUTREACH CASE MANAGER 03/03/2024 6:52 AM NURSE OUTREACH CASE MANAGER Freya Roberts RN CHEMISTRY Final Result Performing Organization Address [facility] Co de Phone Number [facility] [address] [place] [address] * CT ANGIO LOWER EXTREMITY BILAT RUNOFF (03/02/2024 8:29 AM NURSE OUTREACH CASE MANAGER) Anatomical Region Laterality Modality LEGS Computed Tomogra phy 03/02/2024 10:0 6 AM NURSE OUTREACH CASE MANAGER Narrative 03/02/2024 10:06 AM NURSE OUTREACH CASE MANAGER For Patients: As a result of the [...] stenosis in the superficial femoral artery. Focal trui-rc-[id number] stenosis in the distal popliteal artery. Tibioperoneal arteries: Patent, with three-vessel runoff to the ankle. Left lower extremity: Common/external iliac arteries: Left common iliac artery measures 9 mm. Mvis-lz-ekkotcsn mixed atherosclerotic disease in the common iliac [...] multifocalstenosis in the superficial femoral artery. Focal hugm-yi-vrgvrhcyquvhtzte in the distal popliteal artery. Tibioperoneal arteries: Patent, with three-vessel runoff to the ankle. Left lower extremity: Common/external iliac arteries: Left common iliac artery measures 9 mm.Xkpv-jy-vhkihvva mixed atherosclerotic disease in the common iliac [...] (Electronically Signed) Marco Antonio Goodwin DO CT Final Res ult * WHITE BLOOD COUNT (03/02/2024 5:49 AM NURSE OUTREACH CASE MANAGER) Pathologist [facility] WHITE BLOOD COUNT 6.1 4.5 - 11.0 thou/cu mm 03/02/2024 6:38 AM NURSE OUTREACH CASE MANAGER [facility] Blood BLOOD SPECIMEN / Unknown Venipuncture / Unknown 03/02/2024 5:49 AM NURSE OUTREACH CASE MANAGER 03/02/2024 6:34 AM NURSE OUTREACH CASE MANAGER Marco Antonio Goodwin DO HEMATOLOGY Final Res ult [facility] [address] [place] [address] * 12 Lead EKG (03/01/2024 3:32 PM NURSE OUTREACH CASE MANAGER) Pathologist [facility] Interpretation Normal sinus rhythm Minimal voltage criteria [...] NOW QTc 428 ms BEYOND NOW P [place] 37 degrees BEYOND NOW R [place] 15 degrees BEYOND NOW T [place] 33 degrees BEYOND NOW 03/01/2024 3:32 PM NURSE OUTREACH CASE MANAGER 03/01/2024 6:37 PM NURSE OUTREACH CASE MANAGER Marco Antonio Goodwin DO EKG ORD Final Res ult Performing Organization Address City/[facility]/ZIP Co de Phone Number [facility] NOW [place], [place] * MRSA/SA PCR (03/01/2024 2:52 PM NURSE OUTREACH CASE MANAGER) MRSA DNA PCR Negative Negative 03/01/2024 11:27 PM NURSE OUTREACH CASE MANAGER [facility] STAPHYLOCOCCUS AUREUS PCR Negative Negative 03/01/2024 11:27 PM NURSE OUTREACH CASE MANAGER [facility] Other SPECIMEN FROM INTERNAL NOSE / Unknown Non-Blood / Unknown 03/01/2024 2:52 PM NURSE OUTREACH CASE MANAGER 03/01/2024 3:07 PM NURSE OUTREACH CASE MANAGER Narrative [facility] - 03/01/2024 11:27 PM NURSE OUTREACH CASE MANAGER Test result does not preclude MRSA or SA nasal colonization. Marco Antonio Goodwin DO MICROBIOLOGY Final Res ult [facility] [address] [place] [address], * (ABNORMAL) SEDIMENTATION RATE (03/01/2024 2:11 PM NURSE OUTREACH CASE MANAGER) Pathologist [facility] SEDIMENTATION RATE 46(H) <20 mm/hr 2023 2:34 PM NURSE OUTREACH CASE MANAGER [facility] Blood BLOOD SPECIMEN / Unknown Venipuncture / Unknown 03/01/2024 2:11 PM NURSE OUTREACH CASE MANAGER 03/01/2024 2:14 PM NURSE OUTREACH CASE MANAGER Marco Antonio Goodwin DO HEMATOLOGY Final Res ult [facility] [address] [place] [address] * (ABNORMAL) CBC WITH AUTO DIFFERENTIAL (03/01/2024 2:11 PM NURSE OUTREACH CASE MANAGER) WHITE BLOOD COUNT 7.4 4.5 - 11.0 thou/cu mm 03/01/2024 2:21 PM NURSE OUTREACH CASE MANAGER [facility] RED BLOOD COUNT 3.84(L) 4.30 - 5.90 mil/cu mm 03/01/2024 2:21 PM NURSE OUTREACH CASE MANAGER [facility] HEMOGLOBIN 11.5(L) 13.5 - 17.5 g/dL 03/01/2024 2:21 PM [facility] HEMATOCRIT 33.7(L) 37.0 - 53.0 % 03/01/2024 2:21 PM [facility] MCV 88 80 - 100 fL 03/01/2024 2:21 PM [facility] MCH 29.9 26.0 - 34.0 pg 03/01/2024 2:21 PM [facility] MCHC 34.1 32.0 - 36.0 g/dL 03/01/2024 2:21 PM [facility] RDW 12.6 11.5 - 15.5 % 03/01/2024 2:21 PM [facility] PLATELET COUNT 153 140 - 440 thou/cu mm 03/01/2024 2:21 PM [facility] MPV 8.8 6.5 - 11.0 fL 03/01/2024 2:21 PM [facility] % NEUT 61.2 % 03/01/2024 2:21 PM [facility] % LYMPH 18.6 % 03/01/2024 2:21 PM [facility] % MONO 19.5 % 03/01/2024 2:21 PM [facility] % EOS 0.3 % 03/01/2024 2:21 PM [facility] % BASO 0.4 % 03/01/2024 2:21 PM [facility] ABSOLUTE NEUTROPHILS 4.5 1.7 - 7.0 thou/cu mm 03/01/2024 2:21 PM [facility] ABSOLUTE LYMPHOCYTES 1.4 0.9 - 2.9 thou/cu mm 03/01/2024 2:21 PM [facility] ABSOLUTE MONOCYTES 1.4(H) <0.9 thou/cu mm 03/01/2024 2:21 PM [facility] ABSOLUTE EOSINOPHILS 0.0 <0.5 thou/cu mm 03/01/2024 2:21 PM [facility] ABSOLUTE BASOPHILS 0.0 <0.3 thou/cu mm 03/01/2024 2:21 PM [facility] Blood BLOOD SPECIMEN / Unknown Venipuncture / Unknown 03/01/2024 2:11 PM NURSE OUTREACH CASE MANAGER 03/01/2024 2:14 PM NURSE OUTREACH CASE MANAGER Marco Antonio Briggs [facility] DO HEMATOLOGY Final Res ult Performing Organization Address City/[facility]/ZIP Co de Phone Number [facility] [address] [place] [address] * LACTATE VENOUS (03/01/2024 2:11 PM NURSE OUTREACH CASE MANAGER) LACTATE,VENOUS 1.7 0.5 - 2.0 mmol/L 03/01/2024 2:35 PM NURSE OUTREACH CASE MANAGER [facility] Blood BLOOD SPECIMEN / Unknown Venipuncture / Unknown 03/01/2024 2:11 PM NURSE OUTREACH CASE MANAGER 03/01/2024 2:14 PM NURSE OUTREACH CASE MANAGER [facility] CHEMISTRY Final Res ult Performing Organization Address [facility] Co de Phone Number [facility] [address] [place] [address] * PROCALCITONIN (03/01/2024 2:11 PM NURSE OUTREACH CASE MANAGER) Pathologist [facility] PROCALCITONIN 0.08 ng/ml 03/01/2024 2:54 PM NURSE OUTREACH CASE MANAGER [facility] Blood BLOOD SPECIMEN / Unknown Venipuncture / Unknown 03/01/2024 2:11 PM NURSE OUTREACH CASE MANAGER 03/01/2024 2:14 PM NURSE OUTREACH CASE MANAGER Narrative [facility] - 03/01/2024 2:54 PM NURSE OUTREACH CASE MANAGER Procalcitonin for initial assessment of Lower Respiratory [...] Goodwin DO SEND OUTS Final Res ult [facility] [address] [place] [id number] * (ABNORMAL) COMP METABOLIC PANEL (03/01/2024 2:11 PM NURSE OUTREACH CASE MANAGER) SODIUM 130(L) 136 - 145 mmol/L 03/01/2024 2:38 PM NURSE OUTREACH CASE MANAGER [facility] POTASSIUM 4.8 3.5 - 5.1 mmol/L 03/01/2024 2:38 PM NURSE OUTREACH CASE MANAGER [facility] CHLORIDE 92(L) 98 - 107 mmol/L 03/01/2024 2:38 PM [facility] CO2,TOTAL 25 22 - 29 mmol/L 03/01/2024 2:38 PM [facility] ANION GAP 13 5 - 18 03/01/2024 2:38 PM [facility] GLUCOSE 118(H) 70 - 99 mg/dL 03/01/2024 2:38 PM [facility] CALCIUM 9.0 8.8 - 10.4 mg/dL 03/01/2024 2:38 PM [facility] Comment: Reference ranges for this test were updated on 02/28/2024 to reflect our healthy population more accurately. Reference range changes are not retroactively applied to results, but previous results using the same methodology can be interpreted in the context of the new reference range. BUN 25(H) 6 - 20 mg/dL 03/01/2024 2:38 PM [facility] CREATININE 1.14 0.70 - 1.20 mg/dL 03/01/2024 2:38 PM [facility] BUN/CREAT RATIO 22(H) 10 - 20 2:38 PM [facility] eGFR 76(L) >90 mL/min/1. 73m2 03/01/2024 2:38 PM [facility] Comment:As of 2021, eG FR is calculated by the CKD-EPI creatinine equation without race adjustment. eGFR can be influenced by muscle mass, exercise, and diet. The reported eGFR is an estimation only and is only applicable if the renal function is stable. ALBUMIN 3.5(L) 4.0 - 4.9 g/dL 03/01/2024 2:38 PM [facility] PROTEIN,TOTAL 6.5 6.0 - 8.0 g/dL 03/01/2024 2:38 PM [facility] BILIRUBIN,TOTAL 0.3 0.0 - 1.2 mg/dL 03/01/2024 2:38 PM [facility] ALK PHOSPHATASE 53 40 - 129 IU/L 03/01/2024 2:38 PM [facility] ALT (SGPT) 9(L) 10 - 50 IU/L 03/01/2024 2:38 PM [facility] AST (SGOT) 22 10 - 50 IU/L 03/01/2024 2:38 PM NURSE OUTREACH CASE MANAGER [facility] Blood BLOOD SPECIMEN / Unknown Venipuncture / Unknown 03/01/2024 2:11 PM NURSE OUTREACH CASE MANAGER 03/01/2024 2:14 PM NURSE OUTREACH CASE MANAGER us Marco Antonio Goodwin DO CHEMISTRY Final Res ult [facility] [address] [place] [address] * XR FOOT 3 VIEWS LEFT (03/01/2024 2:03 PM NURSE OUTREACH CASE MANAGER) Anatomical Region Laterality Modality FEET, FOOT L Digital Radiogra phy 03/01/2024 2:13 PM NURSE OUTREACH CASE MANAGER Narrative 03/01/2024 2:13 PM NURSE OUTREACH CASE MANAGER For Patients: As a result of the [...] FOOT 3 VIEWS RIGHT (03/01/2024 2:01 PM NURSE OUTREACH CASE MANAGER) Anatomical Region Laterality Modality FEET, FOOT R Digital Radiogra phy 03/01/2024 2:11 PM NURSE OUTREACH CASE MANAGER Narrative 03/01/2024 2:11 PM NURSE OUTREACH CASE MANAGER For Patients: As a result of the [...] MD @ 03/01/2024 2:11:17 PM (Electronically Signed) us Marco Antonio Pratt Buddy DO GENERAL IMAGING Final Res ult * (ABNORMAL) LIPID PANEL W REFLEX MEASURED LDL (11/14/2023 9:06 AM CDT) CHOLESTEROL,TOTAL 117 100 - 199 mg/dL 11/14/2023 6:57 PM CDT [facility] Comment: Cholesterol, Total Reference Ranges Desirable <200 mg/dL Borderline 200-239 mg/dL High >=240 mg/dL TRIGLYCERIDES 156(H) <150 mg/dL 11/14/2023 6:57 PM CDT [facility] HDL CHOLESTEROL 44 >40 mg/dL 6:57 PM CDT [facility] NON-HDL CHOLESTEROL 73 <145 mg/dl 11/14/2023 6:57 PM CDT [facility] CHOL/HDL RATIO 2.66 <4.50 11/14/2023 6:57 PM CDT [facility] LDL CHOLESTEROL 42 <=130 mg/dL 11/14/2023 6:57 PM CDT [facility] VLDL CHOLESTEROL 31(H) <=30 mg/dL 11/14/2023 6:57 PM CDT [facility] PROVIDER ORDERED STATUS RANDOM 11/14/2023 6:57 PM CDT [facility] Blood BLOOD SPECIMEN / Unknown Venipuncture / Unknown 11/14/2023 9:06 AM CDT 11/14/2023 9:06 AM CDT us Zhane Stanley DO CHEMISTRY Final Result [facility] [address] [place] [address], * SDNA-FIT EXTERNAL (COLOGUARD) (09/07/2022 10:30 AM CDT) NONINV COLON CA DNA+OCC BLD SCRN STL-IMP Negative Negative 09/12/2022 4:39 PM CDT [facility] (CLIA #:[id number]) Comment: NEGATIVE TEST RESULT. A negative Cologuard [...] Lockhart et al, N Engl J Med 2014;370(14):5100-1997) The normal value (reference range) for this assay is negative. COLOGUARD RE-SCREENING RECOMMENDATION: Periodic colorectal cancer screening is an important part of preventive healthcare for asymptomatic individuals at average risk for colorectal cancer. Following a negative Cologuard result, the [employer] Cancer Society and U.S. Multi-Society Task Force screening guidelines recommend a Cologuard re-screening interval of 3 years. References: [employer] Society Guideline for Colorectal Cancer Screening: https://www.cancer.org/cancer/jgjnd-fephrz-huojvl/xnsbwvzyi-vhjytedgb-fkdldje/ac s-rec ommendations.html.; Rob DK, Dory GOMEZ, Juan Luis JuárezK, Colorectal Cancer Screening: Recommendations for Physicians and Patients from the U.S. Multi-Society Task Force on Colorectal Cancer Screening , Am J Gastroenterology 2017; 112:8655-5878. TEST DESCRIPTION: Composite algorithmic analysis of stool [...] (Oscar Clifford al, N Engl J Med 2014;370(14):1566-6290.) Cologuard may produce a false negative or false positive result (no colorectal cancer or precancerous polyp present at colonoscopy follow up). A negative Cologuard test result does not guarantee the absence of CRC or advanced adenoma (pre-cancer). The current Cologuard screening interval is every 3 years. ([employer] Cancer Society and U.S. Multi-Society Task Force). Cologuard performance data in a 10,000 patient pivotal study using colonoscopy as the reference method can be accessed at the following location: www.internetstores.Nfoshare/results. Additional description of the Cologuard test process, warnings and precautions can be found at www.[employer]rd.Nfoshare. Stool specimen (specimen) (Rectum) 09/07/2022 10:30 AM CDT 09/08/2022 2:42 PM CDT Zhane Анна Nelsonlaureen DO URINE Final Result [facility] (CLIA #:[id number]) [place] [address], * ANTI HCV (06/25/2020 7:57 AM NURSE OUTREACH CASE MANAGER) HEPATITIS C ANTIBODY Non-React adithya Non-React adithya 06/25/2020 3:43 PM NURSE OUTREACH CASE MANAGER [facility] Comment:Antibodies to HCV no t detected; does not exclude the possibility of exposure to HCV. Blood BLOOD SPECIMEN / Unknown Butterfly / Unknown 06/25/2020 7:57 AM NURSE OUTREACH CASE MANAGER 06/25/2020 8:25 AM NURSE OUTREACH CASE MANAGER Brandan Woodard MD SEND OUTS Final Res ult [facility] [address] [place] [address], [place] * ANTI HIV 1/2 (06/25/2020 7:57 AM NURSE OUTREACH CASE MANAGER) HIV-1/HIV-2 ANTIBODY Non-Reacti ve Non-Reacti ve 06/25/2020 3:44 PM NURSE OUTREACH CASE MANAGER [facility] Comment:HIV-1 p24 and HIV-1/ HIV-2 Ab not detected. Blood BLOOD SPECIMEN / Unknown Butterfly / Unknown 06/25/2020 7:57 AM NURSE OUTREACH CASE MANAGER 06/25/2020 8:25 AM NURSE OUTREACH CASE MANAGER us Brandan Woodard MD SEND OUTS Final Res ult [facility] [address] [place] [address], [place] from Last 3 Months or Most Recently Relevant to Health Maintenance Insurance MEDICARE PART A HB ONLY MEDICAID MEDICARE PART B HB ONLY MEDICARE PB ONLY HC MEDICARE PPS Advance Directives Documents on File Type Date Recorded Patient Lay Ups Assembler Expl anation POLST 08/20/2020 5:18 PM POLST [...] Comments Code Status Discussion: Discussed Care Teams Clock Repair Technician Relationship Specialty Start Date End Date Zhane Stanley DO [address] [place] [address] PCP - General Internal Medicine 09/08/20 Glenys Alcantar MD [address] [place] [address] Endocrinology 05/03/17 [facility] [place] [address] [place] [address] 05/21/20 Samantha Grayson, PharmD [address] [place] [place] [address] Pharmacist Medication Management Pharmacology 10/21/20
--- OUTSIDE RECORDS SUMMARY | 2024-04-30 12:04 | XMS_ITS | Clinical Summary ---
Author Organization [facility] Address [address] [address] Care Team Providers Care Concession Stand Attendant Name Role Phone Needs Pcp, Assignment Primary Care Provider [phone] Source Comments You are receiving this document [...] for each transition of care or referral. [facility] Allergies Active Allergy Reactions Criticality Noted Date [...] a day. 1 Each 0 06/09/2016 Active tipple.meTOUCH ULTRA CONTROL solutionIndications :Uncontrolled type 2 diabetes [...] 80 MG tabletIndications:A SHD (arteriosclerotic heart disease) ([facility]),Hyperlipidemi a with target LDL less than 70 ([facility]) Take 1 tablet by mouth once daily 90 Tablet 3 08/10/2019 Active Additional Information Patient not taking.Reported on 08/28/2019 glucose 4 gram chewable tabletIndications:H ypoglycemia ([facility]) Chew and swallow 4 Tablets by mouth once as needed (Blood sugar less than 70). 30 Tablet 1 10/05/2019 Active insulin degludec 200 UNIT/ML SOPNIndications:Unc ontrolled type 2 diabetes mellitus with hyperglycemia ([facility]) Inject 32 Units subcutaneously daily. 12 mL 10/08/2019 Active amLODIPine (NORVASC) 10 MG tabletIndications:E ssential hypertension ([facility]) Take 1 Tablet by mouth daily. 90 Tablet 3 12/04/2019 Active Continuous Blood Gluc Sensor (FREESTYLE TALAT 14 DAY SENSOR) MISCIndications:Unc ontrolled type 2 diabetes mellitus with hyperglycemia ([facility]) Use as directed. Change every 14 days. 6 Each 4 12/04/2019 Active Continuous Blood Gluc Color Checker (FREESTYLE TALAT 2 READER SYSTM) DEVIIndications:Unc ontrolled type 2 diabetes mellitus with hyperglycemia ([facility]) Use to scan blood sugars per shirt closer instructions. 1 Each 12/04/2019 Active metFORMIN (GLUCOPHAGE) 500 MG tablet Take 2 Tablets by mouth two times a day with meals. 360 Tablet 3 01/09/2020 Active busPIRone (BUSPAR) 10 MG tabletIndications:A nxiety ([facility]) Take 3 Tablets by mouth two times [...] migh t be different from the original. 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/16/2011 History of PTCA 09/16/2011 Overview [...] I disorder 09/15/2005 Overview (12/15/2016): LW Onset: [id number] ; Bipolar I Dis Resolved Problems Problem Noted Date Diagnosed Date Resolved Date Tobacco abuse 02/24/2016 12/18/2018 ACS (acute coronary syndrome) 10/25/2012 02/16/2017 Mass on back 05/02/2012 10/25/2012 Health jail, active care coordination 03/22/2012 07/27/2018 Overview (11/26/2015): [employer] Laborer: JOSETTE Yip [phone] Care coordination focus: T2DM, financial resources Living situation: lives with spouse Important notes: SSDI, significant insulin resistance, uses Relion insulin, commonly reaches Medicare Coverage Gap See care plan under Chart Review > Misc Reports > AMB H CARE PLAN REPORT Assessment & Plan (09/01/2017 11:39 AM CDT): [employer] Laborer: Lesly Rodrigues [facility] [phone] Care coordination focus: mental health Living situation: Lives with Important notes: [facility] case management starting LFTs abnormal 02/02/2012 10/25/2012 S/P angioplasty with stent 05/26/2011 0 10/25/2012 Overview (11/26/2015): Apr 2011 Plantar wart 05/26/2011 10/25/2012 Acute VA 05/01/2011 02/01/2012 Hypertriglyceridemia 12/11/2010 013 Overview (11/26/2015): [...] mos) 03/14/2013 Influenza IIV4 (Quadrivalent ) 0.5mL (08121) 01/07/2020,01/16/2018,02/16/2017,2015,03/27/2015,01/16/2014,03/14/2013 Influenza, Unspecified Formulation 08/23,03/14/2013,03/17/2009,2006,03/23/2006,05/19/2005,03/12/2002 PPSV23 (Pneumovax) 10/08/2009 TB Skin Test (PPD) 06/11/2019,02/05/2016, 016 TDAP (ADACEL) 09/15/2005 TDAP (BOOSTRIX) 11/04/2015 Td 11/12/1998 Social History Tobacco Use Types Packs/Day Years Used Date Smoking Tobacco: Every Day Cigarettes 1 40 Started: 05/17/1984 Smokeless Tobacco: Former Quit: 10/25/2012 [...] Comments Blood Pressure 132/88 06/09/2020 4:43 PM [facility] [facility] Pulse 99 06/09/2020 4:43 PM [facility] [facility] Temperature 38.2 C (100.8 F) 05/02/2019 11:31 AM [facility] Respiratory Rate 16 03/07/2013 2:52 PM [facility] [facility] Oxygen Saturation 97% 10/27/2012 3:52 PM CDT Inhaled Oxygen Concentration - - Weight 88.9 kg (196 lb) 06/09/2020 4:43 PM [employer] [facility] Height 177.8 cm (5' 10) 12/04/2019 10:49 [...] (HRC) HIV ANTIBODY Routine 03/12/2002 12:48 PM [facility] HEPATITIS C ANTIBODY, WITH REFLEX Routine 03/12/2002 12:48 PM [facility] [facility] from Last 3 Months or Most Recently Relevant to Health Maintenance Results * (ABNORMAL) Microalb/Creat Ratio - in 3 months (12/04/2019 10:10 AM CDT) Albumin, Urine, Random 351.2 mg/L 12/04/2019 3:54 PM CDT [facility] Creatinine, Urine, Random 106 >20 mg/dL 12/04/2019 3:54 PM CDT [facility] Albumin/Creati nine Ratio, Urine, Random 331(H) <30 mg/g 12/04/2019 3:54 PM CDT [facility] Urine Non-blood Collection / Unknown 12/04/2019 10:10 AM CDT 12/04/2019 10:10 AM CDT Gagandeep Hinojosa MD LAB_1 Performing Organization Address City/[facility]/ZIP Co de Phone Number [facility] [address] [place] [address], [place] [phone] * (ABNORMAL) POCT Glycosylated Hemoglobin (HB A1C) - in 3 months (12/04/2019 10:06 AM CDT) Hemoglobin A1C (Rapid) 11.3(H) <=5.6 % 12/04/2019 10:15 AM CDT [facility] Blood Venipuncture / Unknown 12/04/2019 10:06 AM CDT 12/04/2019 10:06 AM CDT Narrative [facility] - 12/04/2019 10:15 AM CDT This Rapid A1c test is designed for monitoring patients with an established diagnosis of diabetes mellitus. This rapid method is not suitable to establish the initial diagnosis of diabetes mellitus. Performed using Point of Care Instrumentation. Gagandeep Hinojosa MD LAB_1 Performing Organization Address City/[facility]/ZIP Co de Phone Number [facility] [address] [place] [address], [place] [phone] * (ABNORMAL) Lipid Panel and Direct LDL(If Needed) - in 3 months (12/04/2019 10:06 AM CDT) Cholesterol 116 0 - 199 mg/dL 12/04/2019 4:03 PM T [facility] Triglyceride 137 <=149 mg/dL 12/04/2019 4:03 PM T [facility] HDL Cholesterol 35(L) >=40 mg/dL 0 4:03 PM T [facility] LDL, Calculated 54 <130 mg/dL 0 4:03 PM T [facility] Non HDL Chol, Calculated 81 mg/dL 12/04/2019 4:03 PM T [facility] Cholesterol/HDL Ratio 3.3 12/04/2019 4:03 PM T [facility] Hours Fasting 12 12/04/2019 4:03 PM T [facility] Blood Venipuncture / Unknown 12/04/2019 10:06 AM CDT 12/04/2019 10:06 AM CDT Gagandeep Hinojosa MD LAB_1 Performing Organization Address City/[facility]/ZIP Co de Phone Number [facility] [address] [place] [address], [facility] [phone] [facility] [address] [place] [address], [facility] [phone] * Creatinine / GFR - in 3 months (12/04/2019 10:06 AM CDT) Creatinine 0.80 0.73 - 1.18 mg/dL 12/04/2019 4:03 PM T [facility] GFR, Estimated >60 >60 mL/min/1.7 3m2 12/04/2019 4:03 PM T [facility] Blood Venipuncture / Unknown 12/04/2019 10:06 AM CDT 12/04/2019 10:06 AM CDT Gagandeep Hinojosa MD LAB_1 Performing Organization Address City/[facility]/ZIP Co de Phone Number [facility] [address] [place] [address] [phone] * HIV Antibody (03/12/2002 12:48 PM [facility] [facility]) HIV 1/HIV 2 Non Reac Non Reac HP CONVERSION 03/12/2002 12:4 8 PM [employer] Antonio Jerez MD LAB_1 HP CONVERSION * Hepatitis C Antibody, with Reflex (03/12/2002 12:48 PM [employer]) Hepatitis C Antibody Non Reac Non Reac HP CONVERSION 03/12/2002 12:4 8 PM [employer] Antonio Jerez MD LAB_1 HP CONVERSION from [...] 4:27 AM 05/01/2011 12:21 PM Care Teams Concession Stand Attendant Relationship Specialty Start Date End Date Needs Pcp, [place] [address] PCP - General 01/24/24 Vane Zarate Psychiatrist Psychiatry 03/22/12 [facility] Mental Health Psychotherapist 08/04/17 [facility] Administrative Resident 09/13/17
--- NOTE | 2024-04-30 12:53 | ED_ITS ---
HPI - General Adult General Chief complaint: Altered Mental Status <Mana Mckeon MD - Last Filed: 05/03/24 10:58> Stated complaint: seizure <Mana Mckeon MD - Last Filed: 05/03/24 10:58> Time Seen by Provider: 04/30/24 12:26 <Mana Mckeon MD - Last Filed: 05/03/24 10:58> Source: patient <Mana Mckeon MD - Last Filed: 05/03/24 10:58> Mode of arrival: EMS <Mana Mckeon MD - Last Filed: 05/03/24 10:58> Limitations: altered mental status <Mana Mckeon MD - Last Filed: 05/03/24 10:58> History of Present Illness HPI narrative: 54-year-old male with a very long and complex medical history, presents today with altered mental status. Patient was found unconscious in his room at [facility]. Patient had a weak pulse and a blood pressure of 70/39 when he was found, glucose was 63. He received D50, recheck was 140. He was hypoxic with oxygen saturation in the 80s. EMS prepared to intubate however the patient then spontaneously woke up. Vital signs are now stable. Patient states that he was told that he had a seizure. I do not have a witness testimony of such an event. According to staff at [facility] he was found unconscious in late morning. He had been behaving normally during breakfast and ate without difficulty. The patient was just hospitalized in [place] from a 04/27 to 04/29/24. He went home yesterday and states that he was doing well until this morning. He has no recollection of what happened today. States that he feels tired. He was diagnosed with COVID, influenza, hyponatremia and encephalopathy <Mana Mckeon MD - Last Filed: 05/03/24 10:58> Related Data Home medications: Home Medications ?Medication ?Instructions ?Recorded ?Confirmed aspirin 81 mg tablet,delayed 81 mg PO DAILY 02/10/22 05/01/24 release (Ecotrin Low Strength) divalproex 500 mg tablet,delayed 1,000 mg PO BID 02/10/22 05/01/24 release empagliflozin 10 mg tablet 10 mg PO DAILY 02/10/22 05/01/24 (Jardiance) famotidine 20 mg tablet 20 mg PO BID PRN 02/10/22 05/01/24 gabapentin 300 mg capsule 900 mg PO TID 02/10/22 05/01/24 metformin 1,000 mg tablet 1,000 mg PO BID 02/10/22 05/01/24 multivitamin (Daily Multi-Vitamin 1 tab PO DAILY 02/10/22 05/01/24 tablet) quetiapine 200 mg tablet 200 mg PO HS 02/10/22 05/01/24 rosuvastatin 20 mg tablet 20 mg PO HS 02/10/22 05/01/24 nicotine (polacrilex) 2 mg buccal 2 mg buccal Q1H PRN 08/25/22 05/01/24 mini lozenge paliperidone palmitate 39 mg/0.25 234 mg IM Q3W 09/29/22 05/01/24 mL intramuscular syringe (Invega Sustenna) benzonatate 100 mg capsule 100 mg PO TID PRN 07/05/23 05/01/24 guaifenesin 100 mg/5 mL oral 100 mg PO Q6H PRN 07/05/23 05/01/24 liquid (Adult Tussin Chest Congestion) loperamide 2 mg capsule 2 - 4 mg PO Q6H PRN 07/05/23 05/01/24 (Anti-Diarrheal (loperamide)) ondansetron HCl 4 mg tablet 4 mg PO Q8H PRN 07/05/23 05/01/24 polyethylene glycol 3350 17 17 g PO DAILY PRN 07/05/23 05/01/24 gram/dose oral powder (ClearLax) trihexyphenidyl 5 mg tablet 5 mg PO BID 07/05/23 05/01/24 acetaminophen 325 mg tablet 325 mg PO Q4H PRN 04/27/24 05/01/24 alprazolam 0.25 mg tablet 0.25 mg PO BID 04/27/24 05/01/24 aluminum-mag hydroxide-simethicone 5 ml PO QID PRN 04/27/24 05/01/24 200 mg-200 mg-20 mg/5 mL oral susp (Antacid Plus Anti-Gas) buspirone 30 mg tablet 30 mg PO BID 04/27/24 05/01/24 calcium carbonate (Alex-Gest 400 - 800 mg PO QID PRN 04/27/24 05/01/24 Antacid) eucalyptus-menthol oral mucosal 1 jason mucous membrane BID PRN 04/27/24 05/01/24 lozenge insulin lispro 100 unit/mL 1 - 8 unit subcut TIDWMEAL PRN 04/27/24 05/01/24 subcutaneous solution (Admelog U-100 Insulin lispro) lisinopril 10 mg tablet 10 mg PO DAILY 04/27/24 05/01/24 magnesium hydroxide 400 mg/5 mL 15 - 30 ml PO DAILY PRN 04/27/24 05/01/24 oral suspension melatonin 5 mg tablet,immediate 5 mg PO HS PRN 04/27/24 05/01/24 and extended release propranolol 60 mg capsule,24 60 mg PO DAILY 04/27/24 05/01/24 hr,extended release quetiapine 50 mg tablet (Seroquel) 50 mg PO TID PRN 04/27/24 05/01/24 simethicone 80 mg chewable tablet 80 mg PO BID PRN 04/27/24 05/01/24 (Gas Relief 80 (simethicone)) Previous Rx's ?Medication ?Instructions ?Recorded furosemide 20 mg tablet 20 mg PO DAILY #30 tabs 02/15/22 insulin degludec 200 unit/mL (3 15 unit (0.075 mL) subcut HS #9 mL 05/02/24 mL) subcutaneous pen (Tresiba FlexTouch U-200 insulin) insulin lispro 100 unit/mL 5 unit (0.05 mL) subcut TIDWMEAL 05/02/24 subcutaneous pen (Admelog SoloStar #15 mL U-100 Insulin lispro) <Mana Mckeon MD - Last Filed: 05/03/24 10:58> Allergies/adverse reactions: Allergies Allergy/AdvReac Type Severity Reaction Status Date / Time aripiprazole (From Abilify) Allergy Mild Verified 12/30/23 09:06 bupropion Allergy Mild Verified 12/30/23 09:06 haloperidol (From Haldol) Allergy Mild Verified 12/30/23 09:06 nitroglycerin Allergy Mild Verified 12/30/23 09:06 thiothixene (From Navane) Allergy Mild Verified 12/30/23 09:06 trifluoperazine (From Allergy Mild tremors, Verified 12/30/23 09:06 Stelazine) seizure ziprasidone Allergy Mild Verified 12/30/23 09:06 <Mana Mckeon MD - Last Filed: 05/03/24 10:58> Review of Systems Status of ROS: Reports: 6 or more systems reviewed and unremarkable except as noted in History and below <Mana Mckeon MD - Last Filed: 05/03/24 10:58> [facility], [facility] Medical History: Medical History (Updated 05/02/24 @ 15:59 by Bi Ramirez MD) Driving safety issue ?Z91.89 - Other specified personal risk factors, not elsewhere classified (ICD-10) Suicidal ideation ?R45.851 - Suicidal ideations (ICD-10) Suicide attempt by inadequate means ?X83.8XXA - Intentional self-harm by other specified means, initial encounter (ICD-10) Polypharmacy ?Z79.899 - Other remote computer terminal operator (current) drug therapy (ICD-10) Chronic hyponatremia ?E87.1 - Hypo-osmolality and hyponatremia (ICD-10) History of myocardial infarction ?I25.2 - Old myocardial infarction (ICD-10) ASHD (arteriosclerotic heart disease) (05/04/11) ?I25.10 - Atherosclerotic heart disease of alutiiq coronary artery without angina pectoris (ICD-10) Type 2 diabetes mellitus, uncontrolled (12/11/10) Tinea versicolor (07/18/15) ?B36.0 - Pityriasis versicolor (ICD-10) Obesity, Class I, BMI 30-34.9 (09/16/11) ?E66.9 - Obesity, unspecified (ICD-10) Nonspecific abnormal results of liver function study (12/22/09) ?R94.5 - Abnormal results of liver function studies (ICD-10) Non-proliferative diabetic retinopathy (05/02/19) ?E11.3299 - Type 2 diabetes mellitus with mild nonproliferative diabetic retinopathy without macular edema, unspecified eye (ICD-10) Microalbuminuria (02/04/12) ?R80.9 - Proteinuria, unspecified (ICD-10) MN, old (09/16/11) ?I25.2 - Old myocardial infarction (ICD-10) Hyperlipidemia with target LDL less than 70 (06/08/11) ?E78.5 - Hyperlipidemia, unspecified (ICD-10) Erectile dysfunction (01/22/11) ?N52.9 - Male erectile dysfunction, unspecified (ICD-10) Dermatophytosis of body (09/04/10) ?B35.4 - Tinea corporis (ICD-10) Coronary atherosclerosis (12/22/09) ?I25.10 - Atherosclerotic heart disease of alutiiq coronary artery without angina pectoris (ICD-10) Anemia (05/02/12) ?D64.9 - Anemia, unspecified (ICD-10) Lower extremity edema ?R60.0 - Localized edema (ICD-10) Diabetic retinopathy ?E11.319 - Type 2 diabetes mellitus with unspecified diabetic retinopathy without macular edema (ICD-10) Vitamin D deficiency ?E55.9 - Vitamin D deficiency, unspecified (ICD-10) Generalized anxiety disorder ?F41.1 - Generalized anxiety disorder (ICD-10) History of seizure ?Z87.898 - Personal history of other specified conditions (ICD-10) Diabetic peripheral neuropathy ?E11.42 - Type 2 diabetes mellitus with diabetic polyneuropathy (ICD-10) Coronary artery disease ?I25.10 - Atherosclerotic heart disease of alutiiq coronary artery without angina pectoris (ICD-10) Hypertension ?I10 - Essential (primary) hypertension (ICD-10) Diabetes mellitus type 2 in obese ?E11.69 - Type 2 diabetes mellitus with other specified complication (ICD-10) ?E66.9 - Obesity, unspecified (ICD-10) Tobacco use disorder ?F17.200 - Nicotine dependence, unspecified, uncomplicated (ICD-10) Hyponatremia ?E87.1 - Hypo-osmolality and hyponatremia (ICD-10) Dyslipidemia ?E78.5 - Hyperlipidemia, unspecified (ICD-10) Bipolar 1 disorder ?F31.9 - Bipolar disorder, unspecified (ICD-10) <Mana Mckeon MD - Last Filed: 05/03/24 10:58> Surgical History: Surgical History Status post angioplasty with stent ?Z95.820 - Peripheral vascular angioplasty status with implants and grafts (ICD-10) History of PTCA (09/16/11) ?Z98.61 - Coronary angioplasty status (ICD-10) History of coronary artery stent placement ?Z95.5 - Presence of coronary angioplasty implant and graft (ICD-10) <Mana Mckeon MD - Last Filed: 05/03/24 10:58> Family History: Family History Father Alcohol dependence Diabetes Coronary artery disease Sister Alcohol dependence Diabetes Mother Pulmonary fibrosis <Mana Mckeon MD - Last Filed: 05/03/24 10:58> Social History: Social History Narrative: 52-year-old male resident of [facility]. He has lived there since earlier in 2020. Code status is full. Healthcare power of attorney recruiter would be his father, Farhan Krishnamurthy. Other close family is his sister. History of smoking about a pack of cigarettes a day since age 16. Quit in 2021 He does not drink alcohol. He does not use recreational drugs. What is your current living situation?: I presently have a place to live Problems where you live: no known problems Problems where you live details: NA In the past 12 months, utilities in danger of being shut off: no In past 12 months, lack of transportation kept you from medical appts, meetings, work, or getting things needed for daily living: no In the past 12 mos, have been you worried that your food would run out before you had money to buy more?: never true In the past 12 mos, the food you bought just didn't last and you didn't have money to buy more?: never true Highest level of school completed/degree received: some college, no degree Smoking Status: Former smoker What tobacco products do you use: cigarettes Smoking packs per day: 1.5 Smoking cigarettes per day: 30.0 Years smoked: 37 Smoking pack-years: 55.50 Smoking quit date/years: <= 15 years ago Do you use any of these nicotine containing products: Smokeless Tobacco Second hand tobacco smoke exposure: No How often do you have a drink containing alcohol: never AUDIT-C Alcohol total score: 0 Non-prescribed substance use: denies use Caffeine: Yes (2 cans pop daily) How often does anyone, including family, friends and others, physically hurt you : never How often does anyone, including family, friends and others, insult or talk down to you: rarely How often does anyone, including family, friends and others, threaten you with harm: rarely How often does anyone, including family, friends and others, scream or curse at you: rarely Do you think of yourself as: straight/heterosexual Gender Identity: male service: No Health Related Social Needs: Other personal risk factors, not elsewhere classified (Z91.89) <Mana Mckeon MD - Last Filed: 05/03/24 10:58> Exam Narrative: Exam Narrative: Well-nourished well-developed patient in no acute distress. Alert and oriented x3: He can tell me where he is, who I am after introduction, and the date. Answers questions approximately half of the questions appropriately. The other half patient has very disorganized thoughts in starts talking about things unrelated to our current conversation or question, tangential thinking is present. Mood and affect are appropriate. Patient speaks in full sentences without needing to catch their breath. Speaking and breathing without difficulty. HEENT: Normocephalic atraumatic. Pupils are equally round reactive to light. Extraocular muscles are intact. Conjunctivae are moist without any icterus noted. Moist mucous membranes. Neck is soft. Cardiovascular: Heart is regular rate and rhythm S1 and S2 are present without any murmurs. Lungs: Clear to auscultation bilaterally no wheezes rhonchi or rales are appreciated. Patient takes deep breaths without any discomfort. Abdomen: Soft and nontender nondistended with normal bowel sounds. Extremities: Bilateral lower extremities are without edema. Wounds on feet do not appear infected. Skin: Well perfused without any obvious rashes. <Mana Mckeon MD - Last Filed: 05/03/24 10:58> Const: Vital Signs, click to edit/add: Vital Signs - 24 hr 04/30/24 12:17 04/30/24 12:17 04/30/24 12:34 Temperature 97.1 F L Pulse Rate 69 Pulse Rate [Pulse Oximeter] 72 Respiratory Rate 18 Blood Pressure 114/61 Blood Pressure [Le ft Upper Arm] 128/69 Pulse Oximetry 100 99 97 Oxygen Delivery Me thod Room Air 04/30/24 12:35 04/30/24 12:45 04/30/24 12:47 Temperature Pulse Rate 68 67 68 Pulse Rate [Pulse Oximeter] Respiratory Rate Blood Pressure 117/63 Blood Pressure [Le ft Upper Arm] Pulse Oximetry 97 96 97 Oxygen Delivery Me thod 04/30/24 13:00 04/30/24 13:02 04/30/24 13:15 Temperature Pulse Rate 68 67 69 Pulse Rate [Pulse Oximeter] Respiratory Rate Blood Pressure 115/62 Blood Pressure [Le ft Upper Arm] Pulse Oximetry 97 96 96 Oxygen Delivery Me thod 04/30/24 13:17 04/30/24 13:30 04/30/24 13:32 Temperature Pulse Rate 70 67 68 Pulse Rate [Pulse Oximeter] Respiratory Rate Blood Pressure 123/67 128/69 Blood Pressure [Le ft Upper Arm] Pulse Oximetry 97 100 99 Oxygen Delivery Me thod 04/30/24 13:47 04/30/24 14:02 04/30/24 14:18 Temperature Pulse Rate Pulse Rate [Pulse Oximeter] Respiratory Rate Blood Pressure 132/67 153/89 H 144/69 H Blood Pressure [Le ft Upper Arm] Pulse Oximetry Oxygen Delivery Me thod 04/30/24 14:33 04/30/24 14:47 04/30/24 15:00 Temperature Pulse Rate 84 Pulse Rate [Pulse Oximeter] Respiratory Rate Blood Pressure 146/108 H 150/78 H Blood Pressure [Le ft Upper Arm] Pulse Oximetry 81 L Oxygen Delivery Me thod 04/30/24 15:03 04/30/24 15:18 04/30/24 15:18 Temperature Pulse Rate Pulse Rate [Pulse Oximeter] Respiratory Rate Blood Pressure 150/79 H 141/70 H 141/70 H Blood Pressure [Le ft Upper Arm] Pulse Oximetry Oxygen Delivery Me thod 04/30/24 15:52 04/30/24 15:55 04/30/24 16:00 Temperature Pulse Rate 73 72 70 Pulse Rate [Pulse Oximeter] Respiratory Rate Blood Pressure 170/78 H 158/75 H Blood Pressure [Le ft Upper Arm] Pulse Oximetry 100 99 98 Oxygen Delivery Me thod 04/30/24 16:01 04/30/24 16:15 04/30/24 16:18 Temperature Pulse Rate 72 69 70 Pulse Rate [Pulse Oximeter] Respiratory Rate Blood Pressure 154/86 H Blood Pressure [Le ft Upper Arm] Pulse Oximetry 85 L 99 99 Oxygen Delivery Me thod <Mana Mckeon MD - Last Filed: 05/03/24 10:58> Vital Signs, click to edit/add: Vital Signs - 24 hr 04/30/24 12:17 04/30/24 12:17 04/30/24 12:34 Temperature 97.1 F L Pulse Rate 69 Pulse Rate [Pulse Oximeter] 72 Respiratory Rate 18 Blood Pressure 114/61 Blood Pressure [Le ft Upper Arm] 128/69 Pulse Oximetry 100 99 97 Oxygen Delivery Me thod Room Air 04/30/24 12:35 04/30/24 12:45 04/30/24 12:47 Temperature Pulse Rate 68 67 68 Pulse Rate [Pulse Oximeter] Respiratory Rate Blood Pressure 117/63 Blood Pressure [Le ft Upper Arm] Pulse Oximetry 97 96 97 Oxygen Delivery Me thod 04/30/24 13:00 04/30/24 13:02 04/30/24 13:15 Temperature Pulse Rate 68 67 69 Pulse Rate [Pulse Oximeter] Respiratory Rate Blood Pressure 115/62 Blood Pressure [Le ft Upper Arm] Pulse Oximetry 97 96 96 Oxygen Delivery Me thod 04/30/24 13:17 04/30/24 13:30 04/30/24 13:32 Temperature Pulse Rate 70 67 68 Pulse Rate [Pulse Oximeter] Respiratory Rate Blood Pressure 123/67 128/69 Blood Pressure [Le ft Upper Arm] Pulse Oximetry 97 100 99 Oxygen Delivery Me thod 04/30/24 13:47 04/30/24 14:02 04/30/24 14:18 Temperature Pulse Rate Pulse Rate [Pulse Oximeter] Respiratory Rate Blood Pressure 132/67 153/89 H 144/69 H Blood Pressure [Le ft Upper Arm] Pulse Oximetry Oxygen Delivery Ga thod 04/30/24 14:33 04/30/24 14:47 04/30/24 15:00 Temperature Pulse Rate 84 Pulse Rate [Pulse Oximeter] Respiratory Rate Blood Pressure 146/108 H 150/78 H Blood Pressure [Le ft Upper Arm] Pulse Oximetry 81 L Oxygen Delivery Me thod 04/30/24 15:03 04/30/24 15:18 04/30/24 15:18 Temperature Pulse Rate Pulse Rate [Pulse Oximeter] Respiratory Rate Blood Pressure 150/79 H 141/70 H 141/70 H Blood Pressure [Le ft Upper Arm] Pulse Oximetry Oxygen Delivery Ga thod 04/30/24 15:52 04/30/24 15:55 04/30/24 16:00 Temperature Pulse Rate 73 72 70 Pulse Rate [Pulse Oximeter] Respiratory Rate Blood Pressure 170/78 H 158/75 H Blood Pressure [Le ft Upper Arm] Pulse Oximetry 100 99 98 Oxygen Delivery Me thod 04/30/24 16:01 04/30/24 16:15 04/30/24 16:18 Temperature Pulse Rate 72 69 70 Pulse Rate [Pulse Oximeter] Respiratory Rate Blood Pressure 154/86 H Blood Pressure [Le ft Upper Arm] Pulse Oximetry 85 L 99 99 Oxygen Delivery Ga thod <Hardeep Hanson MD - Last Filed: 04/30/24 18:51> Course Course ED Course: VBG is normal. Sodium is around his baseline of 130, potassium slightly elevated at 5.2. Creatinine is 1.4, 1.0 yesterday. Normal lactate. CRP mildly elevated at 4.4. Normal troponin. Normal LFTs. UA shows 2+ protein and 2+ glucose. Alcohol levels are 0. Salicylates and acetaminophen levels negative. Urine drug screen positive for tricyclic antidepressants. Patient was here for 4 hours and although he attempted to urinate it he had no urine output. Therefore a catheter was placed and 1000 mL of clear yellow urine was obtained. Patient was unaware of that he was retaining urine, did not have any symptoms of discomfort. Because of this, we did put an indwelling catheter in and will monitor for postobstructive diuresis. As of this moment he has had no changes in his mentation. We will also attempt to clear if I what his insulin dose has been as it was decreased while he was hospitalized. His blood sugars, despite being fed juicing food while he has been here has continued to be low. Care transferred to oncoming physician. <Mana Mckeon MD - Last Filed: 05/03/24 10:58> Reevaluation(s) Reevaluation #1: patient signed out to Dr. Hanson at 1800. This patient has several problems. Recently hospitalized with COVID, influenza, hyponatremia and had altered mental status thought to be due encephalopathy because of those conditions. 1. Unresponsive spell,, resolved. Was found on the floor of his shelter today initially unresponsive, hypoxic, hypotensive, hypoglycemic but spontaneously recovered. unclear in etiology. No report of any illicit substances. No alcohol use. No witnessed seizure to suggest postictal. 2. Hypoglycemia. After his recovery his blood sugar was corrected and came up from the 60s to the 120s after intravenous dextrose per EMS. He had recurrent hypoglycemia upon arrival here to the ER and required p.o. juice and sandwich. He has been monitored for a couple of hours now and sugar has been steady in the 120s. He was just hospitalized a couple of days ago and apparently was having some hypoglycemia in the hospital so his insulin regimen was adjusted. Previously had been on Tresiba 28 units q.h.s. and lispro 10 units t.i.d.. His tresiba was reduced down to 20 units q.h.s. . We confirmed that he received that dose last night his shelter. His list probe was reduced down to 7 units any did receive a dose of that this morning with breakfast. It sounds like he did not eat very much breakfast. It is possible he had a hypoglycemic event because he did not eat with his morning insulin. Would need a glucose monitoring in the hospital overnight and possibly further insulin regimen dosage adjustments. 3. He also has chronic hyponatremia. Sodium is at his baseline today at 1:30 a.m.. He also has Polydipsia. Unclear if this is psychogenic. 4. he was found to have acute urinary retention here in the ER. Urinalysis injured drug screen were ordered at the time presentation but he was not able PE. Ultimately a Logan catheter was placed and he had over a L of urine out initially. Unclear why he is having acute urinary retention. He is on Benadryl on his med list. Possibly a anticholinergic side effect. After his 1st 1 L of urine out, he has had a 2 L of urine out over the subsequent 1 hour. Will need monitoring for urine output and potentially monitoring Also of serum sodium levels. Urine drug screen is positive for tricyclics but otherwise negative. I recheck the patient at about 6:00 p.m.. He is alert and oriented to person place, day, but cannot recall events of this morning. No focal deficits. His biggest concern is that his Logan catheter is irritating. He agrees to leave it in for urine output monitoring.. He was oriented to person , place and recalls meeting myself in the ER in the past during a previous visit. However he is not able to recall events of this morning. He does recall that he was isolating in his room last night and had dinner. It sounds like they brought him breakfast this morning but he did not eat very much, only a few crackers. He got a morning dose of insulin, he believes. He can not remember much else after that. He denies any drugs or alcohol. 5. He was positive for COVID 3 days ago. He is wearing his mask. Breathing easily. Oxygen sat 99% room air. No respiratory distress. discussed with hospitalist, Dr. Carrera. She agrees to admit. <Hardeep Hanson MD - Last Filed: 04/30/24 18:51> Vital Signs Vital signs: Initial Vital Signs Temperature 97.1 F L 04/30/24 12:17 Temperature Source Temporal Artery Scan 04/30/24 12:17 Pulse Rate 72 04/30/24 12:17 Respiratory Rate 18 04/30/24 12:17 Blood Pressure 128/69 04/30/24 12:17 Blood Pressure Mean 88 04/30/24 12:17 Pulse Oximetry 100 04/30/24 12:17 Oxygen Delivery Method Room Air 04/30/24 12:17 Vital Signs Temperature 97.1 F L 04/30/24 12:17 Pulse Rate 72 04/30/24 12:17 Respiratory Rate 18 04/30/24 12:17 Blood Pressure 128/69 04/30/24 12:17 Pulse Oximetry 100 04/30/24 12:17 Oxygen Delivery Method Room Air 04/30/24 12:17 Temperature 97.8 F 05/02/24 11:00 Pulse Rate 84 05/02/24 11:00 Respiratory Rate 16 05/02/24 11:00 Blood Pressure 102/84 05/02/24 11:00 Pulse Oximetry 93 05/02/24 11:00 Oxygen Delivery Method Room Air 05/02/24 07:00 <Mana Mckeon MD - Last Filed: 05/03/24 10:58> Initial Vital Signs Temperature 97.1 F L 04/30/24 12:17 Temperature Source Temporal Artery Scan 04/30/24 12:17 Pulse Rate 72 04/30/24 12:17 Respiratory Rate 18 04/30/24 12:17 Blood Pressure 128/69 04/30/24 12:17 Blood Pressure Mean 88 04/30/24 12:17 Pulse Oximetry 100 04/30/24 12:17 Oxygen Delivery Method Room Air 04/30/24 12:17 Vital Signs Temperature 97.1 F L 04/30/24 12:17 Pulse Rate 72 04/30/24 12:17 Respiratory Rate 18 04/30/24 12:17 Blood Pressure 128/69 04/30/24 12:17 Pulse Oximetry 100 04/30/24 12:17 Oxygen Delivery Method Room Air 04/30/24 12:17 Temperature 97.8 F 05/02/24 11:00 Pulse Rate 84 05/02/24 11:00 Respiratory Rate 16 05/02/24 11:00 Blood Pressure 102/84 05/02/24 11:00 Pulse Oximetry 93 05/02/24 11:00 Oxygen Delivery Method Room Air 05/02/24 07:00 <Hardeep Hanson MD - Last Filed: 04/30/24 18:51> Medications Administered Medications: Discontinued Medications Generic Name Dose Route Start Last Admin Trade Name Freq PRN Reason Stop Dose Admin Acetaminophen 650 mg 04/30/24 19:39 05/01/24 02:15 Acetaminophen 325 Mg Tablet PO 650 mg Q6H PRN Administration pain or fever Alprazolam 0.25 mg 05/01/24 09:00 05/02/24 09:13 Alprazolam 0.25 Mg Tablet PO 0.25 mg BID HAZEL Administration Aspirin 81 mg 05/01/24 09:00 05/02/24 09:13 Aspirin 81 Mg Tablet Ec PO 81 mg DAILY HAZEL Administration Benzocaine/Menthol 1 each 05/01/24 08:13 05/01/24 16:16 Benzocaine/Menthol 1 Each Lozenge MUCOUS MEM 1 each Q1H PRN Administration sore/dry throat Buspirone HCl 30 mg 04/30/24 21:00 05/02/24 09:14 Buspirone 10 Mg Tablet PO 30 mg BID HAZEL Administration Divalproex Sodium 1,000 mg 05/01/24 09:00 05/02/24 09:16 Divalproex Delayed Release 250 Mg Tablet PO 1,000 mg BID HAZEL Administration Empagliflozin 10 mg 05/01/24 09:00 05/02/24 09:13 Empagliflozin 10 Mg Tablet PO 10 mg DAILY HAZEL Administration Furosemide 20 mg 05/01/24 09:00 05/02/24 09:15 Furosemide 20 Mg Tablet PO 20 mg DAILY HAZEL Administration Gabapentin 900 mg 04/30/24 21:00 05/02/24 09:14 Gabapentin 300 Mg Capsule PO 900 mg TID HAZEL Administration Insulin Aspart 0 unit 04/30/24 21:00 04/30/24 21:31 Insulin Aspart 100 Unit/Ml SUBCUT Not Given ACHS [facility] Protocol Insulin Aspart 5 unit 05/01/24 08:00 05/02/24 12:37 Insulin Aspart 100 Unit/Ml SUBCUT 5 unit TIDWM [facility]ZEL Administration Insulin Aspart 0 unit 05/01/24 08:00 05/02/24 12:36 Insulin Aspart 100 Unit/Ml SUBCUT Not Given 02,08,12,18,21 [facility] Protocol Insulin Glargine 15 unit 04/30/24 22:16 05/01/24 21:30 Insulin Glargine,Hum.Rec.Anlog 100 Unit/Ml Insuln.Pen SUBCUT 15 unit HS [facility] Administration Lisinopril 10 mg 05/01/24 09:00 05/02/24 09:13 Lisinopril 10 Mg Tablet PO 10 mg DAILY [facility]ZEL Administration Metformin HCl 1,000 mg 05/01/24 09:00 05/02/24 09:13 Metformin 1,000 Mg Tablet PO 1,000 mg BID [facility] Administration Multivitamins/Minerals 1 tab 05/01/24 09:00 05/02/24 09:14 Multivitamin/Minerals 1 Tablet PO 1 tab DAILY [facility] Administration Nicotine 1 patch 05/01/24 03:00 05/02/24 02:26 Nicotine 7 Mg Patch TRANSDERMA Not Given Q24H [facility] Nicotine Polacrilex 2 mg 04/30/24 21:05 05/01/24 21:40 Nicotine 2 Mg Lozenge BUCCAL 2 mg Q1H PRN Administration Non-Formulary Medication 15 unit 04/30/24 21:00 04/30/24 22:17 Insulin Degludec [Tresiba Flextouch U-200] SUBCUT Not Given HS [facility] Propranolol HCl 60 mg 05/01/24 09:00 05/02/24 09:13 Propranolol 60 Mg Er Cap PO 60 mg DAILY [facility] Administration Quetiapine Fumarate 200 mg 05/01/24 21:00 05/01/24 21:30 Quetiapine 100 Mg Tablet PO 200 mg HS [facility] Administration Quetiapine Fumarate 50 mg 04/30/24 21:15 05/01/24 03:08 Quetiapine 25 Mg Tablet PO 50 mg TID PRN Administration Rosuvastatin Calcium 20 mg 05/01/24 21:00 05/01/24 21:29 Rosuvastatin Calcium 10 Mg Tablet PO 20 mg HS [facility] Administration Sodium Chloride 5 ml 04/30/24 21:00 05/02/24 09:16 Sodium Chloride 0.9 % (Flush) 10 Ml Syringe IVF 5 ml BID [facility] Administration Tamsulosin HCl 0.4 mg 05/01/24 09:00 05/02/24 09:14 Tamsulosin Hcl 0.4 Mg Capsule PO 0.4 mg DAILY [facility] Administration <Mana Mckeon MD - Last Filed: 05/03/24 10:58> Discontinued Medications Generic Name Dose Route Start Last Admin Trade Name Freq PRN Reason Stop Dose Admin Acetaminophen 650 mg 04/30/24 19:39 05/01/24 02:15 Acetaminophen 325 Mg Tablet PO 650 mg Q6H PRN Administration pain or fever Alprazolam 0.25 mg 05/01/24 09:00 05/02/24 09:13 Alprazolam 0.25 Mg Tablet PO 0.25 mg BID [facility] Administration Aspirin 81 mg 05/01/24 09:00 05/02/24 09:13 Aspirin 81 Mg Tablet Ec PO 81 mg DAILY [facility] Administration Benzocaine/Menthol 1 each 05/01/24 08:13 05/01/24 16:16 Benzocaine/Menthol 1 Each Lozenge MUCOUS MEM 1 each Q1H PRN Administration sore/dry throat Buspirone HCl 30 mg 04/30/24 21:00 05/02/24 09:14 Buspirone 10 Mg Tablet PO 30 mg BID [facility]EL Administration Divalproex Sodium 1,000 mg 05/01/24 09:00 05/02/24 09:16 Divalproex Delayed Release 250 Mg Tablet PO 1,000 mg BID [facility]EL Administration Empagliflozin 10 mg 05/01/24 09:00 05/02/24 09:13 Empagliflozin 10 Mg Tablet PO 10 mg DAILY [facility] Administration Furosemide 20 mg 05/01/24 09:00 05/02/24 09:15 Furosemide 20 Mg Tablet PO 20 mg DAILY [facility] Administration Gabapentin 900 mg 04/30/24 21:00 05/02/24 09:14 Gabapentin 300 Mg Capsule PO 900 mg TID HAZEL Administration Insulin Aspart 0 unit 04/30/24 21:00 04/30/24 21:31 Insulin Aspart 100 Unit/Ml SUBCUT Not Given ACHS [facility] Protocol Insulin Aspart 5 unit 05/01/24 08:00 05/02/24 12:37 Insulin Aspart 100 Unit/Ml SUBCUT 5 unit TIDWM HAZEL Administration Insulin Aspart 0 unit 05/01/24 08:00 05/02/24 12:36 Insulin Aspart 100 Unit/Ml SUBCUT Not Given 02,08,12,18,21 [facility] Protocol Insulin Glargine 15 unit 04/30/24 22:16 05/01/24 21:30 Insulin Glargine,Hum.Rec.Anlog 100 Unit/Ml Insuln.Pen SUBCUT 15 unit HS [facility] Administration Lisinopril 10 mg 05/01/24 09:00 05/02/24 09:13 Lisinopril 10 Mg Tablet PO 10 mg DAILY [facility] Administration Metformin HCl 1,000 mg 05/01/24 09:00 05/02/24 09:13 Metformin 1,000 Mg Tablet PO 1,000 mg BID [facility]EL Administration Multivitamins/Minerals 1 tab 05/01/24 09:00 05/02/24 09:14 Multivitamin/Minerals 1 Tablet PO 1 tab DAILY [facility] Administration Nicotine 1 patch 05/01/24 03:00 05/02/24 02:26 Nicotine 7 Mg Patch TRANSDERMA Not Given Q24H [facility] Nicotine Polacrilex 2 mg 04/30/24 21:05 05/01/24 21:40 Nicotine 2 Mg Lozenge BUCCAL 2 mg Q1H PRN Administration Non-Formulary Medication 15 unit 04/30/24 21:00 04/30/24 22:17 Insulin Degludec [Tresiba Flextouch U-200] SUBCUT Not Given HS [facility] Propranolol HCl 60 mg 05/01/24 09:00 05/02/24 09:13 Propranolol 60 Mg Er Cap PO 60 mg DAILY [facility] Administration Quetiapine Fumarate 200 mg 05/01/24 21:00 05/01/24 21:30 Quetiapine 100 Mg Tablet PO 200 mg HS [facility] Administration Quetiapine Fumarate 50 mg 04/30/24 21:15 05/01/24 03:08 Quetiapine 25 Mg Tablet PO 50 mg TID PRN Administration Rosuvastatin Calcium 20 mg 05/01/24 21:00 05/01/24 21:29 Rosuvastatin Calcium 10 Mg Tablet PO 20 mg HS [facility] Administration Sodium Chloride 5 ml 04/30/24 21:00 05/02/24 09:16 Sodium Chloride 0.9 % (Flush) 10 Ml Syringe IVF 5 ml BID [facility]ZEL Administration Tamsulosin HCl 0.4 mg 05/01/24 09:00 05/02/24 09:14 Tamsulosin Hcl 0.4 Mg Capsule PO 0.4 mg DAILY [facility] Administration <Hardeep Hanson MD - Last Filed: 04/30/24 18:51> Medical Decision Making Lab Data Labs: Lab Results 04/30/24 04/30/24 04/30/24 Range/Units 13:15 15:30 20:18 WBC 7.19 (4.50-11.00) K/uL RBC 3.58 L (4.30-5.90) m/uL Hgb 11.3 L (13.5-17.5) gm/dL Hct 32.4 L (37.0-53.0) % MCV 91 (80-100) fL MCH 32 (26-34) pg MCHC 35 (32-36) gm/dL RDW Coeff of Arlene 13.4 (11.5-15.5) % Plt Count 157 (140-440) K/uL Neut % (Auto) 55.9 (42.0-72.0) % Lymph % (Auto) 25.0 (20-44) % [place] % (Auto) 18.9 H (0.0-11.0) % Eos % (Auto) 0.0 (0.0-7.0) % Baso % (Auto) 0.1 (0.0-3.0) % Neut # (Auto) 4.01 (1.7-7.0) K/uL Lymph # (Auto) 1.80 (0.90-2.90) K/uL [place] # (Auto) 1.40 H (0.00-0.90) K/UL Eos # (Auto) 0.00 (0.00-0.50) K/uL Baso # (Auto) 0.01 (0.00-0.30) K/uL Abs Immat Gran (auto) 0.01 (0.00-0.30) K/uL Imm/Tot Granulo (auto) 0.1 % VBG pH 7.358 (7.32-7.43) VBG pCO2 49 (40-50) mmHG VBG pO2 < 30.1 (25-47) mmHG VBG HCO3 28 (21-28) mmol/L Sodium 130 L (135-149) mmol/L Potassium 5.2 H (3.6-5.1) mmol/L Chloride 99 (96-114) mmol/L Carbon Dioxide 26 (20-32) mmol/L Anion Gap 5 L (7-15) mEq/L BUN 32 H (7-30) mg/dL Creatinine 1.4 (0.5-1.5) mg/dL Estimated Creat Clear 62.28 Estimated GFR 60 ml/min Glucose 68 (60-115) mg/dL Lactate 0.8 (0.5-1.9) mmol/L Calcium 8.4 (8.4-10.6) mg/dL Magnesium 2.4 (1.5-2.6) mg/dL Total Bilirubin 0.4 (0.1-1.5) mg/dL Direct Bilirubin 0.2 (0.0-0.5) mg/dL AST 34 (12-35) U/L ALT 13 (4-50) U/L Alkaline Phosphatase 40 (40-150) U/L Total Creatine Kinase 360 H (54-186) U/L Troponin I 0.01 (0.01-0.04) ng/mL C-Reactive Protein 4.4 H (0.5-1.0) mg/dL Total Protein 6.5 (6.0-8.3) g/dL Albumin 3.5 (3.3-5.0) g/dL Urine Color Yellow (Yellow) Urine Appearance Clear (Clear) Urine pH 6.0 (5.0-8.5) Ur Specific [place] 1.015 (1.000-1.030) Urine Protein 2+ A (Negative) Urine Glucose (UA) 2+ A (Negative) Urine Ketones Negative (Negative) Urine Blood Trace-intact A (Negative) Urine Nitrite Negative (Negative) Urine Bilirubin Negative (Negative) Urine Urobilinogen 0.2 (0.2-1.0) Ur Leukocyte Esterase Negative (Negative) Urine RBC 0-2 (0-2) Urine WBC 0-2 (0-5) Ur Squamous Epith Cells None (None-Few) Urine Bacteria None (None) Salicylates < 1.0 L (1.0-10) mg/dL Urine Opiates Screen Negative (Negative) Ur Oxycodone Screen Negative (Negative) Urine Methadone Screen Negative (Negative) Acetaminophen < 10.0 L (10.0-30.0) ug/mL Ur Barbiturates Screen Negative (Negative) U Tricyclic Antidepress POSITIVE A (Negative) Ur Phencyclidine Scrn Negative (Negative) Ur Amphetamines Screen Negative (Negative) U Methamphetamines Scrn Negative (Negative) U Benzodiazepines Scrn Negative (Negative) Urine Cocaine Screen Negative (Negative) U Marijuana (THC) Screen Negative (Negative) Ur Drug Screen Comment See Note Ethyl Alcohol < 0.01 L (0.01-0.03) % Lab Acknowledgement Test Added 05/01/24 Range/Units 06:22 WBC 6.32 (4.50-11.00) K/uL RBC 3.97 L (4.30-5.90) m/uL Hgb 11.9 L (13.5-17.5) gm/dL Hct 34.4 L (37.0-53.0) % MCV 87 (80-100) fL MCH 30 (26-34) pg MCHC 35 (32-36) gm/dL RDW Coeff of Arlene 13.0 (11.5-15.5) % Plt Count 163 (140-440) K/uL Neut % (Auto) 61.5 (42.0-72.0) % Lymph % (Auto) 21.8 (20-44) % [place] % (Auto) 16.3 H (0.0-11.0) % Eos % (Auto) 0.0 (0.0-7.0) % Baso % (Auto) 0.2 (0.0-3.0) % Neut # (Auto) 3.89 (1.7-7.0) K/uL Lymph # (Auto) 1.38 (0.90-2.90) K/uL [place] # (Auto) 1.00 H (0.00-0.90) K/UL Eos # (Auto) 0.00 (0.00-0.50) K/uL Baso # (Auto) 0.01 (0.00-0.30) K/uL Abs Immat Gran (auto) 0.01 (0.00-0.30) K/uL Imm/Tot Granulo (auto) 0.2 % VBG pH (7.32-7.43) VBG pCO2 (40-50) mmHG VBG pO2 (25-47) mmHG VBG HCO3 (21-28) mmol/L Sodium 131 L (135-149) mmol/L Potassium 4.6 (3.6-5.1) mmol/L Chloride 98 (96-114) mmol/L Carbon Dioxide 28 (20-32) mmol/L Anion Gap 5 L (7-15) mEq/L BUN 21 (7-30) mg/dL Creatinine 0.8 (0.5-1.5) mg/dL Estimated Creat Clear 108.99 Estimated GFR 105 ml/min Glucose 98 (60-115) mg/dL Lactate (0.5-1.9) mmol/L Calcium 8.5 (8.4-10.6) mg/dL Magnesium (1.5-2.6) mg/dL Total Bilirubin (0.1-1.5) mg/dL Direct Bilirubin (0.0-0.5) mg/dL AST (12-35) U/L ALT (4-50) U/L Alkaline Phosphatase (40-150) U/L Total Creatine Kinase (54-186) U/L Troponin I (0.01-0.04) ng/mL C-Reactive Protein 7.0 H (0.5-1.0) mg/dL Total Protein (6.0-8.3) g/dL Albumin (3.3-5.0) g/dL Urine Color (Yellow) Urine Appearance (Clear) Urine pH (5.0-8.5) Ur Specific [place] (1.000-1.030) Urine Protein (Negative) Urine Glucose (UA) (Negative) Urine Ketones (Negative) Urine Blood (Negative) Urine Nitrite (Negative) Urine Bilirubin (Negative) Urine Urobilinogen (0.2-1.0) Ur Leukocyte Esterase (Negative) Urine RBC (0-2) Urine WBC (0-5) Ur Squamous Epith Cells (None-Few) Urine Bacteria (None) Salicylates (1.0-10) mg/dL Urine Opiates Screen (Negative) Ur Oxycodone Screen (Negative) Urine Methadone Screen (Negative) Acetaminophen (10.0-30.0) ug/mL Ur Barbiturates Screen (Negative) U Tricyclic Antidepress (Negative) Ur Phencyclidine Scrn (Negative) Ur Amphetamines Screen (Negative) U Methamphetamines Scrn (Negative) U Benzodiazepines Scrn (Negative) Urine Cocaine Screen (Negative) U Marijuana (THC) Screen (Negative) Ur Drug Screen Comment Ethyl Alcohol (0.01-0.03) % Lab Acknowledgement <Mana Mckeon MD - Last Filed: 05/03/24 10:58> Lab Results 04/30/24 04/30/24 04/30/24 Range/Units 13:15 15:30 20:18 WBC 7.19 (4.50-11.00) K/uL RBC 3.58 L (4.30-5.90) m/uL Hgb 11.3 L (13.5-17.5) gm/dL Hct 32.4 L (37.0-53.0) % MCV 91 (80-100) fL MCH 32 (26-34) pg MCHC 35 (32-36) gm/dL RDW Coeff of Arlene 13.4 (11.5-15.5) % Plt Count 157 (140-440) K/uL Neut % (Auto) 55.9 (42.0-72.0) % Lymph % (Auto) 25.0 (20-44) % [place] % (Auto) 18.9 H (0.0-11.0) % Eos % (Auto) 0.0 (0.0-7.0) % Baso % (Auto) 0.1 (0.0-3.0) % Neut # (Auto) 4.01 (1.7-7.0) K/uL Lymph # (Auto) 1.80 (0.90-2.90) K/uL [place] # (Auto) 1.40 H (0.00-0.90) K/UL Eos # (Auto) 0.00 (0.00-0.50) K/uL Baso # (Auto) 0.01 (0.00-0.30) K/uL Abs Immat Gran (auto) 0.01 (0.00-0.30) K/uL Imm/Tot Granulo (auto) 0.1 % VBG pH 7.358 (7.32-7.43) VBG pCO2 49 (40-50) mmHG VBG pO2 < 30.1 (25-47) mmHG VBG HCO3 28 (21-28) mmol/L Sodium 130 L (135-149) mmol/L Potassium 5.2 H (3.6-5.1) mmol/L Chloride 99 (96-114) mmol/L Carbon Dioxide 26 (20-32) mmol/L Anion Gap 5 L (7-15) mEq/L BUN 32 H (7-30) mg/dL Creatinine 1.4 (0.5-1.5) mg/dL Estimated Creat Clear 62.28 Estimated GFR 60 ml/min Glucose 68 (60-115) mg/dL Lactate 0.8 (0.5-1.9) mmol/L Calcium 8.4 (8.4-10.6) mg/dL Magnesium 2.4 (1.5-2.6) mg/dL Total Bilirubin 0.4 (0.1-1.5) mg/dL Direct Bilirubin 0.2 (0.0-0.5) mg/dL AST 34 (12-35) U/L ALT 13 (4-50) U/L Alkaline Phosphatase 40 (40-150) U/L Total Creatine Kinase 360 H (54-186) U/L Troponin I 0.01 (0.01-0.04) ng/mL C-Reactive Protein 4.4 H (0.5-1.0) mg/dL Total Protein 6.5 (6.0-8.3) g/dL Albumin 3.5 (3.3-5.0) g/dL Urine Color Yellow (Yellow) Urine Appearance Clear (Clear) Urine pH 6.0 (5.0-8.5) Ur Specific [place] 1.015 (1.000-1.030) Urine Protein 2+ A (Negative) Urine Glucose (UA) 2+ A (Negative) Urine Ketones Negative (Negative) Urine Blood Trace-intact A (Negative) Urine Nitrite Negative (Negative) Urine Bilirubin Negative (Negative) Urine Urobilinogen 0.2 (0.2-1.0) Ur Leukocyte Esterase Negative (Negative) Urine RBC 0-2 (0-2) Urine WBC 0-2 (0-5) Ur Squamous Epith Cells None (None-Few) Urine Bacteria None (None) Salicylates < 1.0 L (1.0-10) mg/dL Urine Opiates Screen Negative (Negative) Ur Oxycodone Screen Negative (Negative) Urine Methadone Screen Negative (Negative) Acetaminophen < 10.0 L (10.0-30.0) ug/mL Ur Barbiturates Screen Negative (Negative) U Tricyclic Antidepress POSITIVE A (Negative) Ur Phencyclidine Scrn Negative (Negative) Ur Amphetamines Screen Negative (Negative) U Methamphetamines Scrn Negative (Negative) U Benzodiazepines Scrn Negative (Negative) Urine Cocaine Screen Negative (Negative) U Marijuana (THC) Screen Negative (Negative) Ur Drug Screen Comment See Note Ethyl Alcohol < 0.01 L (0.01-0.03) % Lab Acknowledgement Test Added 05/01/24 Range/Units 06:22 WBC 6.32 (4.50-11.00) K/uL RBC 3.97 L (4.30-5.90) m/uL Hgb 11.9 L (13.5-17.5) gm/dL Hct 34.4 L (37.0-53.0) % MCV 87 (80-100) fL MCH 30 (26-34) pg MCHC 35 (32-36) gm/dL RDW Coeff of Arlene 13.0 (11.5-15.5) % Plt Count 163 (140-440) K/uL Neut % (Auto) 61.5 (42.0-72.0) % Lymph % (Auto) 21.8 (20-44) % [place] % (Auto) 16.3 H (0.0-11.0) % Eos % (Auto) 0.0 (0.0-7.0) % Baso % (Auto) 0.2 (0.0-3.0) % Neut # (Auto) 3.89 (1.7-7.0) K/uL Lymph # (Auto) 1.38 (0.90-2.90) K/uL [place] # (Auto) 1.00 H (0.00-0.90) K/UL Eos # (Auto) 0.00 (0.00-0.50) K/uL Baso # (Auto) 0.01 (0.00-0.30) K/uL Abs Immat Gran (auto) 0.01 (0.00-0.30) K/uL Imm/Tot Granulo (auto) 0.2 % VBG pH (7.32-7.43) VBG pCO2 (40-50) mmHG VBG pO2 (25-47) mmHG VBG HCO3 (21-28) mmol/L Sodium 131 L (135-149) mmol/L Potassium 4.6 (3.6-5.1) mmol/L Chloride 98 (96-114) mmol/L Carbon Dioxide 28 (20-32) mmol/L Anion Gap 5 L (7-15) mEq/L BUN 21 (7-30) mg/dL Creatinine 0.8 (0.5-1.5) mg/dL Estimated Creat Clear 108.99 Estimated GFR 105 ml/min Glucose 98 (60-115) mg/dL Lactate (0.5-1.9) mmol/L Calcium 8.5 (8.4-10.6) mg/dL Magnesium (1.5-2.6) mg/dL Total Bilirubin (0.1-1.5) mg/dL Direct Bilirubin (0.0-0.5) mg/dL AST (12-35) U/L ALT (4-50) U/L Alkaline Phosphatase (40-150) U/L Total Creatine Kinase (54-186) U/L Troponin I (0.01-0.04) ng/mL C-Reactive Protein 7.0 H (0.5-1.0) mg/dL Total Protein (6.0-8.3) g/dL Albumin (3.3-5.0) g/dL Urine Color (Yellow) Urine Appearance (Clear) Urine pH (5.0-8.5) Ur Specific [place] (1.000-1.030) Urine Protein (Negative) Urine Glucose (UA) (Negative) Urine Ketones (Negative) Urine Blood (Negative) Urine Nitrite (Negative) Urine Bilirubin (Negative) Urine Urobilinogen (0.2-1.0) Ur Leukocyte Esterase (Negative) Urine RBC (0-2) Urine WBC (0-5) Ur Squamous Epith Cells (None-Few) Urine Bacteria (None) Salicylates (1.0-10) mg/dL Urine Opiates Screen (Negative) Ur Oxycodone Screen (Negative) Urine Methadone Screen (Negative) Acetaminophen (10.0-30.0) ug/mL Ur Barbiturates Screen (Negative) U Tricyclic Antidepress (Negative) Ur Phencyclidine Scrn (Negative) Ur Amphetamines Screen (Negative) U Methamphetamines Scrn (Negative) U Benzodiazepines Scrn (Negative) Urine Cocaine Screen (Negative) U Marijuana (THC) Screen (Negative) Ur Drug Screen Comment Ethyl Alcohol (0.01-0.03) % Lab Acknowledgement <Hardeep Hanson MD - Last Filed: 04/30/24 18:51> Discharge Plan Discharge Clinical Impression: Hypoglycemia, Acute hyponatremia, Mental status change resolved, Acute urinary retention <Mana Mckeon MD - Last Filed: 05/03/24 10:58> Patient Disposition: Admitted As Observation <Mana Mckeon MD - Last Filed: 05/03/24 10:58> Condition: Improved <Mana Mckeon MD - Last Filed: 05/03/24 10:58> Activity Level: Activity as Tolerated <Mana Mckeon MD - Last Filed: 05/03/24 10:58> Activity as Tolerated <Hardeep Hanson MD - Last Filed: 04/30/24 18:51> Discharge Diet: Diabetic <Mana Mckeon MD - Last Filed: 05/03/24 10:58> Diabetic <Hardeep Hanson MD - Last Filed: 04/30/24 18:51>
[2024-04-30 13:21] LABS: HCO3 VBG 28 mmol/L (21-28); PCO2 VBG 49 mmHG (40-50); PO2 VBG < 30.1 mmHG (25-47); pH VBG 7.358 (7.32-7.43)
[2024-04-30 13:26] LABS: Lactate* 0.8 mmol/L (0.5-1.9)
[2024-04-30 13:43] LABS: Albumin* 3.5 g/dL (3.3-5.0); Chloride* 99 mmol/L (96-114)
[2024-04-30 13:44] LABS: Potassium* 5.2 mmol/L (3.6-5.1); Sodium* 130 mmol/L (135-149)
[2024-04-30 13:45] LABS: Creatinine* 1.4 mg/dL (0.5-1.5); Est. Creatinine Clearance* 62.28; Estimated Glomerular Filt Rate 60 ml/min
[2024-04-30 13:46] LABS: Alanine Aminotransferase* 13 U/L (4-50); Alkaline Phosphatase* 40 U/L (40-150); Anion Gap 5 mEq/L (7-15); Aspartate Amino Transferase* 34 U/L (12-35); Bilirubin Direct* 0.2 mg/dL (0.0-0.5); Bilirubin Total* 0.4 mg/dL (0.1-1.5); Blood Urea Nitrogen* 32 mg/dL (7-30); Calcium* 8.4 mg/dL (8.4-10.6); Carbon Dioxide* 26 mmol/L (20-32); Glucose* 68 mg/dL (60-115); Total Protein* 6.5 g/dL (6.0-8.3)
[2024-04-30 13:47] LABS: Magnesium* 2.4 mg/dL (1.5-2.6)
[2024-04-30 13:49] LABS: C Reactive Protein* 4.4 mg/dL (0.5-1.0)
[2024-04-30 13:51] LABS: Acetaminophen* < 10.0 ug/mL (10.0-30.0); Salicylate* < 1.0 mg/dL (1.0-10)
[2024-04-30 13:58] LABS: Troponin I* 0.01 ng/mL (0.01-0.04)
[2024-04-30 15:35] LABS: Basophils Absolute Auto 0.01 K/uL (0.00-0.30); Basophils Percent Auto 0.1 % (0.0-3.0); Hematocrit 32.4 % (37.0-53.0); Hemoglobin* 11.3 gm/dL (13.5-17.5); Immature Granulocytes Abs Auto 0.01 K/uL (0.00-0.30); Immature Granulocytes Pct Auto 0.1 %; Mean Corpuscular HGB Conc 35 gm/dL (32-36); Mean Corpuscular Hemoglobin 32 pg (26-34); Mean Corpuscular Volume 91 fL (80-100); Monocytes Percent Auto 18.9 % (0.0-11.0); Neutrophils Absolute Auto 4.01 K/uL (1.7-7.0); Neutrophils Percent Auto 55.9 % (42.0-72.0); Platelet Count* 157 K/uL (140-440); RDW Coefficient of Variation % 13.4 % (11.5-15.5); Red Blood Count 3.58 m/uL (4.30-5.90); White Blood Count* 7.19 K/uL (4.50-11.00)
[2024-04-30 15:46] LABS: Ethanol* < 0.01 % (0.01-0.03); Slide Review Reflex No
[2024-04-30 16:02] LABS: Appearance Urine Clear (Clear); Bilirubin Urine Negative (Negative); Blood Urine Trace-intact (Negative); Color Urine Yellow (Yellow); Glucose Urine 2+ (Negative); Ketones Urine Negative (Negative); Leukocyte Esterase Urine Negative (Negative); Nitrite Urine Negative (Negative); Protein Urine 2+ (Negative); Specific Gravity Urine 1.015 (1.000-1.030); Urobilinogen Urine 0.2 (0.2-1.0)
[2024-04-30 16:14] LABS: Amphetamine Screen Urine Negative (Negative); Benzodiazepines Screen Urine Negative (Negative); Cannabinoid Screen Urine Negative (Negative); Cocaine Screen Urine Negative (Negative); Methamphetamines Screen Urine Negative (Negative); Opiate Screen Urine Negative (Negative); Phencyclidine Screen Urine Negative (Negative); Tricyclic Antidepressant Urine POSITIVE (Negative)
[2024-04-30 16:15] LABS: Barbiturate Screen Urine Negative (Negative); Methadone Screen Urine Negative (Negative); Oxycodone Screen Urine Negative (Negative); RBC Urine 0-2 (0-2); WBC Urine 0-2 (0-5)
[2024-04-30 20:45] LABS: Creatine Kinase* 360 U/L (54-186)
[2024-04-30] MEDS: GABAPENTIN 300 MG CAPSULE 900 MG PO (21:30)
[2024-04-30] MEDS: BUSPIRONE 10 MG TABLET 30 MG PO (21:30)
[2024-04-30] MEDS: SODIUM CHLORIDE 0.9 % (FLUSH) 10 ML SYRINGE 5 ML IVF (21:32)
--- NOTE | 2024-04-30 22:01 | PM.IMHP1 ---
Hospitalist- H&P: HPI History of Present Illness Time Seen by Provider: 21:00 Date Seen: 04/30/24 Chief complaint: seizure Narrative: Timur Krishnamurthy is a 54 year old male with a complicated medical history who was discharged from this hospital yesterday and he was found unconscious in late morning in his room at the assisted living facility where he lives. He had a weak pulse, blood pressure, and was hypoxic. His glucose was 63 and he received an amp of D50 which brought him up to a glucose of 140. EMS was preparing to intubate but then he woke up. Rustam is a poor historian with rambling and tangential speech and tells me that he remembers this episode, but could not give me any substantial information about what he was feeling that led up to it or what happened right before he became unconscious. There was no witness to the event. He tells me that he has never had anything like this happen before, but the knee goes on to say that when he was a teenager he sometimes had events like this due to medications. He feels back to normal this evening. He denies any headache or vision changes, chest pain or shortness of breath. He is unable to tell me much information about how long he has been on his medications, but does say that the only medications he takes are those given to him by [facility]. He was discharged from here yesterday after hospital stay for acute encephalopathy, influenza a, COVID, and acute hyponatremia. He also had hypoglycemia during his recent hospital stay. His medications were adjusted including lower insulin doses upon discharge. Review of Systems Status of ROS: Reports: 10 or more systems reviewed and unremarkable except as noted in History and below [facility] Medical History (Updated 05/01/24 @ 01:55 by Connie Carrera MD) Suicidal ideation ?R45.851 - Suicidal ideations (ICD-10) Suicide attempt by inadequate means ?X83.8XXA - Intentional self-harm by other specified means, initial encounter (ICD-10) Polypharmacy ?Z79.899 - Other assisted (current) drug therapy (ICD-10) Chronic hyponatremia ?E87.1 - Hypo-osmolality and hyponatremia (ICD-10) History of myocardial infarction ?I25.2 - Old myocardial infarction (ICD-10) ASHD (arteriosclerotic heart disease) (05/04/11) ?I25.10 - Atherosclerotic heart disease of [place] coronary artery without angina pectoris (ICD-10) Type 2 diabetes mellitus, uncontrolled (12/11/10) Tinea versicolor (07/18/15) ?B36.0 - Pityriasis versicolor (ICD-10) Obesity, Class I, BMI 30-34.9 (09/16/11) ?E66.9 - Obesity, unspecified (ICD-10) Nonspecific abnormal results of liver function study (12/22/09) ?R94.5 - Abnormal results of liver function studies (ICD-10) Non-proliferative diabetic retinopathy (05/02/19) ?E11.3299 - Type 2 diabetes mellitus with mild nonproliferative diabetic retinopathy without macular edema, unspecified eye (ICD-10) Microalbuminuria (02/04/12) ?R80.9 - Proteinuria, unspecified (ICD-10) NM, old (09/16/11) ?I25.2 - Old myocardial infarction (ICD-10) Hyperlipidemia with target LDL less than 70 (06/08/11) ?E78.5 - Hyperlipidemia, unspecified (ICD-10) Erectile dysfunction (01/22/11) ?N52.9 - Male erectile dysfunction, unspecified (ICD-10) Dermatophytosis of body (09/04/10) ?B35.4 - Tinea corporis (ICD-10) Coronary atherosclerosis (12/22/09) ?I25.10 - Atherosclerotic heart disease of [place] coronary artery without angina pectoris (ICD-10) Anemia (05/02/12) ?D64.9 - Anemia, unspecified (ICD-10) Lower extremity edema ?R60.0 - Localized edema (ICD-10) Diabetic retinopathy ?E11.319 - Type 2 diabetes mellitus with unspecified diabetic retinopathy without macular edema (ICD-10) Vitamin D deficiency ?E55.9 - Vitamin D deficiency, unspecified (ICD-10) Generalized anxiety disorder ?F41.1 - Generalized anxiety disorder (ICD-10) History of seizure ?Z87.898 - Personal history of other specified conditions (ICD-10) Diabetic peripheral neuropathy ?E11.42 - Type 2 diabetes mellitus with diabetic polyneuropathy (ICD-10) Coronary artery disease ?I25.10 - Atherosclerotic heart disease of [place] coronary artery without angina pectoris (ICD-10) Hypertension ?I10 - Essential (primary) hypertension (ICD-10) Diabetes mellitus type 2 in obese ?E11.69 - Type 2 diabetes mellitus with other specified complication (ICD-10) ?E66.9 - Obesity, unspecified (ICD-10) Tobacco use disorder ?F17.200 - Nicotine dependence, unspecified, uncomplicated (ICD-10) Hyponatremia ?E87.1 - Hypo-osmolality and hyponatremia (ICD-10) Dyslipidemia ?E78.5 - Hyperlipidemia, unspecified (ICD-10) Bipolar 1 disorder ?F31.9 - Bipolar disorder, unspecified (ICD-10) Surgical History Status post angioplasty with stent ?Z95.820 - Peripheral vascular angioplasty status with implants and grafts (ICD-10) History of PTCA (09/16/11) ?Z98.61 - Coronary angioplasty status (ICD-10) History of coronary artery stent placement ?Z95.5 - Presence of coronary angioplasty implant and graft (ICD-10) Family History Father Alcohol dependence Diabetes Coronary artery disease Sister Alcohol dependence Diabetes Mother Pulmonary fibrosis Social History Narrative: 52-year-old male resident of [facility]. He has lived there since earlier in 2020. Code status is full. Healthcare power of health care attorney would be his father, Farhan Krishnamurthy. Other close family is his sister. History of smoking about a pack of cigarettes a day since age 16. Quit in 2021 He does not drink alcohol. He does not use recreational drugs. What is your current living situation?: I presently have a place to live Problems where you live: no known problems Problems where you live details: NA In the past 12 months, utilities in danger of being shut off: no In past 12 months, lack of transportation kept you from medical appts, meetings, work, or getting things needed for daily living: no In the past 12 mos, have been you worried that your food would run out before you had money to buy more?: never true In the past 12 mos, the food you bought just didn't last and you didn't have money to buy more?: never true Highest level of school completed/degree received: some college, no degree Smoking Status: Former smoker What tobacco products do you use: cigarettes Smoking packs per day: 1.5 Smoking cigarettes per day: 30.0 Years smoked: 37 Smoking pack-years: 55.50 Smoking quit date/years: <= 15 years ago Do you use any of these nicotine containing products: Smokeless Tobacco Second hand tobacco smoke exposure: No How often do you have a drink containing alcohol: never AUDIT-C Alcohol total score: 0 Non-prescribed substance use: denies use Caffeine: Yes (2 cans pop daily) How often does anyone, including family, friends and others, physically hurt you: never How often does anyone, including family, friends and others, insult or talk down to you: rarely How often does anyone, including family, friends and others, threaten you with harm: rarely How often does anyone, including family, friends and others, scream or curse at you: rarely Do you think of yourself as: straight/heterosexual Gender Identity: male service: No Health Related Social Needs: Other personal risk factors, not elsewhere classified (Z91.89) Meds Home Medications and Allergies Home Medications ?Medication ?Instructions ?Recorded ?Confirmed ?Type aspirin 81 mg tablet,delayed 81 mg PO DAILY 02/10/22 04/27/24 History release (Ecotrin Low Strength) divalproex 500 mg tablet,delayed 1,000 mg PO BID 02/10/22 04/27/24 History release empagliflozin 10 mg tablet 10 mg PO DAILY 02/10/22 04/27/24 History (Jardiance) famotidine 20 mg tablet 20 mg PO BID PRN 02/10/22 04/27/24 History gabapentin 300 mg capsule 900 mg PO TID 02/10/22 04/27/24 History metformin 1,000 mg tablet 1,000 mg PO BID 02/10/22 04/27/24 History multivitamin (Daily Multi-Vitamin 1 tab PO DAILY 02/10/22 04/27/24 History tablet) quetiapine 200 mg tablet 200 mg PO HS 02/10/22 04/27/24 History rosuvastatin 20 mg tablet 20 mg PO HS 02/10/22 04/27/24 History nicotine (polacrilex) 2 mg buccal 2 mg buccal Q1H PRN 08/25/22 04/27/24 History mini lozenge paliperidone palmitate 39 mg/0.25 234 mg IM Q3W 09/29/22 04/27/24 History mL intramuscular syringe (Invega Sustenna) benzonatate 100 mg capsule 100 mg PO TID PRN 07/05/23 04/27/24 History diphenhydramine HCl 25 mg capsule 25 mg PO Q6H PRN 07/05/23 04/27/24 History (Banophen) guaifenesin 100 mg/5 mL oral 100 mg PO Q6H PRN 07/05/23 04/27/24 History liquid (Adult Tussin Chest Congestion) loperamide 2 mg capsule 2 - 4 mg PO Q6H PRN 07/05/23 04/27/24 History (Anti-Diarrheal (loperamide)) ondansetron HCl 4 mg tablet 4 mg PO Q8H PRN 07/05/23 04/27/24 History polyethylene glycol 3350 17 17 g PO DAILY PRN 07/05/23 04/27/24 History gram/dose oral powder (ClearLax) trihexyphenidyl 5 mg tablet 5 mg PO BID 07/05/23 04/27/24 History acetaminophen 325 mg tablet 325 mg PO Q4H PRN 04/27/24 04/27/24 History alprazolam 0.25 mg tablet 0.25 mg PO BID 04/27/24 04/27/24 History aluminum-mag hydroxide-simethicone 5 ml PO QID PRN 04/27/24 04/27/24 History 200 mg-200 mg-20 mg/5 mL oral susp (Antacid Plus Anti-Gas) buspirone 30 mg tablet 30 mg PO BID 04/27/24 04/27/24 History calcium carbonate (Alex-Gest 400 - 800 mg PO QID PRN 04/27/24 04/27/24 History Antacid) eucalyptus-menthol oral mucosal 1 jason mucous membrane BID PRN 04/27/24 04/27/24 History lozenge insulin lispro 100 unit/mL 1 - 8 unit subcut TIDWMEAL PRN 04/27/24 04/27/24 History subcutaneous solution (Admelog U-100 Insulin lispro) lisinopril 10 mg tablet 10 mg PO DAILY 04/27/24 04/27/24 History magnesium hydroxide 400 mg/5 mL 15 - 30 ml PO DAILY PRN 04/27/24 04/27/24 History oral suspension melatonin 5 mg tablet,immediate 5 mg PO HS PRN 04/27/24 04/27/24 History and extended release propranolol 60 mg capsule,24 60 mg PO DAILY 04/27/24 04/27/24 History hr,extended release quetiapine 50 mg tablet (Seroquel) 50 mg PO TID PRN 04/27/24 04/27/24 History simethicone 80 mg chewable tablet 80 mg PO BID PRN 04/27/24 04/27/24 History (Gas Relief 80 (simethicone)) Allergies Allergy/AdvReac Type Severity Reaction Status Date / Time aripiprazole (From Abilify) Allergy Mild Verified 12/30/23 09:06 bupropion Allergy Mild Verified 12/30/23 09:06 haloperidol (From Haldol) Allergy Mild Verified 12/30/23 09:06 nitroglycerin Allergy Mild Verified 12/30/23 09:06 thiothixene (From Navane) Allergy Mild Verified 12/30/23 09:06 trifluoperazine (From Allergy Mild tremors, Verified 12/30/23 09:06 Stelazine) seizure ziprasidone Allergy Mild Verified 12/30/23 09:06 Exam Narrative: Exam Narrative: General: No acute distress. Awake alert oriented x3. Talkative, rambling, tangential thinking. Emotional, tearful at times. HEENT: Normocephalic atraumatic, pupils equally round and reactive to light and accommodation. Oropharynx clear. Mucous membranes are moist. No cervical lymphadenopathy, thyromegaly or carotid bruits. No JVD. Cardiovascular: Regular rate and rhythm. No murmurs, gallops, or rubs. Chest: No increased work of breathing. Clear to auscultation bilaterally. No crackles or wheezes. Abdomen: Bowel sounds present. Soft, nondistended, nontender. No hepatosplenomegaly or masses. Extremities: No edema, no cyanosis or clubbing. Lower extremity wound bandages are clean, dry, and intact. Skin: As above. No jaundice, no pallor, no rashes. Const: Vital Signs, click to edit/add: Vital Signs - 24 hr 04/30/24 12:17 04/30/24 12:17 04/30/24 12:34 Temperature 97.1 F L Pulse Rate 69 Pulse Rate [Pulse Oximeter] 72 Respiratory Rate 18 Blood Pressure 114/61 Blood Pressure [Le ft Arm] Blood Pressure [Le ft Upper Arm] 128/69 Pulse Oximetry 100 99 [facility] 04/30/24 12:35 04/30/24 12:45 04/30/24 12:47 Temperature Pulse Rate 68 67 68 Pulse Rate [Pulse Oximeter] Respiratory Rate Blood Pressure 117/63 Blood Pressure [Le ft Arm] Blood Pressure [Le ft Upper Arm] Pulse Oximetry 97 96 97 Oxygen Delivery Ok thod 04/30/24 13:00 04/30/24 13:02 04/30/24 13:15 Temperature Pulse Rate 68 67 69 Pulse Rate [Pulse Oximeter] Respiratory Rate Blood Pressure 115/62 Blood Pressure [Le ft Arm] Blood Pressure [Le ft Upper Arm] Pulse Oximetry 97 96 96 Oxygen Delivery Me od 04/30/24 13:17 04/30/24 13:30 04/30/24 13:32 Temperature Pulse Rate 70 67 68 Pulse Rate [Pulse Oximeter] Respiratory Rate Blood Pressure 123/67 128/69 Blood Pressure [Le ft Arm] Blood Pressure [Le ft Upper Arm] Pulse Oximetry 97 100 99 [facility] 04/30/24 13:47 04/30/24 14:02 04/30/24 14:18 Temperature Pulse Rate Pulse Rate [Pulse Oximeter] Respiratory Rate Blood Pressure 132/67 153/89 H 144/69 H Blood Pressure [Le ft Arm] Blood Pressure [Le ft Upper Arm] Pulse Oximetry [facility] 04/30/24 14:33 04/30/24 14:47 04/30/24 15:00 Temperature Pulse Rate 84 Pulse Rate [Pulse Oximeter] Respiratory Rate Blood Pressure 146/108 H 150/78 H Blood Pressure [Le ft Arm] Blood Pressure [Le ft Upper Arm] Pulse Oximetry 81 L [facility] 04/30/24 15:03 04/30/24 15:18 04/30/24 15:18 Temperature Pulse Rate Pulse Rate [Pulse Oximeter] Respiratory Rate Blood Pressure 150/79 H 141/70 H 141/70 H Blood Pressure [Le ft Arm] Blood Pressure [Le ft Upper Arm] Pulse Oximetry [facility] 04/30/24 15:52 04/30/24 15:55 04/30/24 16:00 Temperature Pulse Rate 73 72 70 Pulse Rate [Pulse Oximeter] Respiratory Rate Blood Pressure 170/78 H 158/75 H Blood Pressure [Le ft Arm] Blood Pressure [Le ft Upper Arm] Pulse Oximetry 100 99 98 [facility] 04/30/24 16:01 04/30/24 16:15 04/30/24 16:18 Temperature Pulse Rate 72 69 70 Pulse Rate [Pulse Oximeter] Respiratory Rate Blood Pressure 154/86 H Blood Pressure [Le ft Arm] Blood Pressure [Le ft Upper Arm] Pulse Oximetry 85 L 99 99 [facility] 04/30/24 16:19 04/30/24 16:30 04/30/24 16:35 Temperature Pulse Rate 70 74 75 Pulse Rate [Pulse Oximeter] Respiratory Rate Blood Pressure 165/73 H Blood Pressure [Le ft Arm] Blood Pressure [Le ft Upper Arm] Pulse Oximetry 99 100 [facility] 04/30/24 16:45 04/30/24 16:47 04/30/24 17:00 Temperature Pulse Rate 71 72 70 Pulse Rate [Pulse Oximeter] Respiratory Rate Blood Pressure 158/82 H Blood Pressure [Le ft Arm] Blood Pressure [Le ft Upper Arm] Pulse Oximetry 100 100 100 [facility] 04/30/24 17:02 04/30/24 17:15 04/30/24 17:17 Temperature Pulse Rate 73 70 72 Pulse Rate [Pulse Oximeter] Respiratory Rate Blood Pressure 159/67 H 169/81 H Blood Pressure [Le ft Arm] Blood Pressure [Le ft Upper Arm] Pulse Oximetry 99 100 100 [facility] 04/30/24 17:30 04/30/24 17:34 04/30/24 17:45 Temperature Pulse Rate 76 76 75 Pulse Rate [Pulse Oximeter] Respiratory Rate Blood Pressure 152/78 H Blood Pressure [Le ft Arm] Blood Pressure [Le ft Upper Arm] Pulse Oximetry 100 100 [facility] 04/30/24 17:47 04/30/24 18:00 04/30/24 18:02 Temperature Pulse Rate 76 73 76 Pulse Rate [Pulse Oximeter] Respiratory Rate Blood Pressure 172/98 H 168/89 H Blood Pressure [Le ft Arm] Blood Pressure [Le ft Upper Arm] Pulse Oximetry 100 100 100 Oxygen Delivery Ok thod 04/30/24 18:15 04/30/24 18:17 04/30/24 18:30 Temperature Pulse Rate 81 84 75 Pulse Rate [Pulse Oximeter] Respiratory Rate Blood Pressure 159/116 H Blood Pressure [Le ft Arm] Blood Pressure [Le ft Upper Arm] Pulse Oximetry 100 100 100 Oxygen Delivery Ok thod 04/30/24 18:32 04/30/24 18:45 04/30/24 18:47 Temperature Pulse Rate 75 75 76 Pulse Rate [Pulse Oximeter] Respiratory Rate Blood Pressure 160/92 H 165/94 H Blood Pressure [Le ft Arm] Blood Pressure [Le ft Upper Arm] Pulse Oximetry 100 99 97 [facility] 04/30/24 19:42 04/30/24 20:55 Temperature Pulse Rate Pulse Rate [Pulse Oximeter] 79 Respiratory Rate 18 Blood Pressure Blood Pressure [Le ft Arm] 122/89 Blood Pressure [Le ft Upper Arm] Pulse Oximetry 100 100 [facility] Hospitalist - H&P: Result Labs Labs: Short CBC 04/30/24 Range/Units 13:15 WBC 7.19 (4.50-11.00) K/uL Hgb 11.3 L (13.5-17.5) gm/dL Hct 32.4 L (37.0-53.0) % Plt Count 157 (140-440) K/uL BMP 04/30/24 13:15 Sodium 130 L Potassium 5.2 H Chloride 99 Carbon Dioxide 26 BUN 32 H Creatinine 1.4 Glucose 68 Calcium 8.4 Cardiac Enzymes 04/30/24 Range/Units 13:15 Total Creatine Kinase 360 H (54-186) U/L Troponin I 0.01 (0.01-0.04) ng/mL Liver Function 04/30/24 Range/Units 13:15 Total Bilirubin 0.4 (0.1-1.5) mg/dL Direct Bilirubin 0.2 (0.0-0.5) mg/dL AST 34 (12-35) U/L ALT 13 (4-50) U/L Alkaline Phosphatase 40 (40-150) U/L Albumin 3.5 (3.3-5.0) g/dL Urine 04/30/24 Range/Units 15:30 Urine Color Yellow (Yellow) Urine Appearance Clear (Clear) Urine pH 6.0 (5.0-8.5) Ur Specific [place] 1.015 (1.000-1.030) Urine Protein 2+ A (Negative) Urine Glucose (UA) 2+ A (Negative) Assessment and Plan Assessment and plan (1) Mental status change resolved: Problem comment: - EKG completed in the ER. Staff is currently looking for this for me to read. May need to repeat. - Cardiac monitoring. Status: Acute (2) Acute urinary retention: Status: Acute (3) Hypoglycemia: Status: Acute (4) Polypharmacy: Problem comment: Multiple psychoactive medications for management of bipolar disorder Status: Acute (5) Chronic hyponatremia: Problem comment: Baseline sodium around 130. Sodium went from 121 on admission to 131 at the time of discharge. Status: Acute (6) COVID: Problem comment: Uncertain of onset. No respiratory failure. Mild symptoms Status: Acute (7) Influenza A: Problem comment: Uncertain of onset. No respiratory failure. Mild symptoms Status: Acute (8) Type 2 diabetes mellitus treated with insulin: Problem comment: Monitor while inpatient. Insulin reduced by almost a 3rd and still blood sugars are borderline low. He reports eating well. Reduce basal and mealtime insulin at the time of discharge and review with outpatient provider Status: Acute (9) Bipolar 1 disorder: Problem comment: He is worse than baseline with disordered thinking, confusion, encephalopathy. Likely due to acute illness. Status: Acute (10) EDUARDO (acute kidney injury): Status: Acute Plan 54 y/o male with unresponsive episode associated with hypoglycemia and acute urinary retention. He had an episode of acute encephalopathy which led to an admission just a few days ago. His mental status is now back to his baseline after his blood sugar came up, so hypoglycemia is the most likely cause. I also think the trihexyphenidyl may be contributing to these episodes, especially because he also has urinary retention. Will hold this and diphenhydramine. Decrease insulin, hold jardiance and meformin, and monitor overnight on telemetry with seizure precautions. Due to mild EDUARDO, will hold metformin and lisinopril.
[2024-04-30] MEDS: INSULIN GLARGINE,HUM.REC.ANLOG 100 UNIT/ML INSULN.PEN 15 UNIT SUBCUT (22:55)
[2024-05-01] VITALS (12 sets, daily range): BP systolic 113–203; BP diastolic 65–101; PULSE 75–94; RESP 16–18; TEMP 36.4–37; O2SAT 97–100; BMI 27.9
[2024-05-01] MEDS: ACETAMINOPHEN 325 MG TABLET 650 MG PO (02:15)
[2024-05-01] MEDS: QUETIAPINE 25 MG TABLET 50 MG PO (03:08)
[2024-05-01] MEDS: NICOTINE 2 MG LOZENGE BUCCAL ×3 (03:16→21:40)
--- NOTE | 2024-05-01 06:33 | PC.NURSE ---
Pt arrived to the floor at 1900. Aler, orientated and cooperative. Pt is forgetful at times repeating questions throughout shift. VSS. Tolerating room air. Pt very in tune with medications and home regimen, asking questions about meds and his doses. Tremor at baseline per pt. Up with SBA. [place] in places and draining. Blood sugar 125 at bedtime. Snack given overnight. Using call light appropriately. Sister updated via phone call.
[2024-05-01 07:11] LABS: Basophils Absolute Auto 0.01 K/uL (0.00-0.30); Basophils Percent Auto 0.2 % (0.0-3.0); Hematocrit 34.4 % (37.0-53.0); Hemoglobin* 11.9 gm/dL (13.5-17.5); Immature Granulocytes Abs Auto 0.01 K/uL (0.00-0.30); Immature Granulocytes Pct Auto 0.2 %; Lymphocytes Absolute Auto 1.38 K/uL (0.90-2.90); Lymphocytes Percent Auto 21.8 % (20-44); Mean Corpuscular HGB Conc 35 gm/dL (32-36); Mean Corpuscular Hemoglobin 30 pg (26-34); Mean Corpuscular Volume 87 fL (80-100); Monocytes Percent Auto 16.3 % (0.0-11.0); Neutrophils Absolute Auto 3.89 K/uL (1.7-7.0); Neutrophils Percent Auto 61.5 % (42.0-72.0); Platelet Count* 163 K/uL (140-440); Red Blood Count 3.97 m/uL (4.30-5.90); White Blood Count* 6.32 K/uL (4.50-11.00)
[2024-05-01 07:20] LABS: Chloride* 98 mmol/L (96-114)
[2024-05-01 07:21] LABS: Potassium* 4.6 mmol/L (3.6-5.1); Sodium* 131 mmol/L (135-149)
[2024-05-01 07:23] LABS: Creatinine* 0.8 mg/dL (0.5-1.5); Est. Creatinine Clearance* 108.99; Estimated Glomerular Filt Rate 105 ml/min; Slide Review Reflex No
[2024-05-01 07:24] LABS: Anion Gap 5 mEq/L (7-15); Blood Urea Nitrogen* 21 mg/dL (7-30); Carbon Dioxide* 28 mmol/L (20-32); Glucose* 98 mg/dL (60-115)
[2024-05-01 07:25] LABS: Calcium* 8.5 mg/dL (8.4-10.6)
[2024-05-01] MEDS: BENZOCAINE/MENTHOL 1 EACH LOZENGE MUCOUS MEM ×3 (08:30→16:16)
[2024-05-01] MEDS: GABAPENTIN 300 MG CAPSULE 900 MG PO ×3 (08:44→21:29)
[2024-05-01] MEDS: MULTIVITAMIN/MINERALS 1 TABLET 1 TAB PO (08:45)
[2024-05-01] MEDS: EMPAGLIFLOZIN 10 MG TABLET PO (08:45)
[2024-05-01] MEDS: BUSPIRONE 10 MG TABLET 30 MG PO ×2 (08:45→21:29)
[2024-05-01] MEDS: METFORMIN 1,000 MG TABLET 1000 MG PO ×2 (08:46→21:29)
[2024-05-01] MEDS: ALPRAZolam 0.25 MG TABLET PO ×2 (08:46→21:29)
[2024-05-01] MEDS: ASPIRIN 81 MG TABLET EC PO (08:46)
[2024-05-01] MEDS: TAMSULOSIN HCL 0.4 MG CAPSULE PO (08:46)
[2024-05-01] MEDS: lisinopriL 10 MG TABLET PO (08:46)
[2024-05-01] MEDS: DIVALPROEX DELAYED RELEASE 250 MG TABLET 1000 MG PO ×2 (10:18→21:28)
[2024-05-01] MEDS: FUROSEMIDE 20 MG TABLET PO (10:19)
[2024-05-01] MEDS: INSULIN ASPART 100 UNIT/ML SUBCUT ×3 (10:22→17:42)
[2024-05-01] MEDS: SODIUM CHLORIDE 0.9 % (FLUSH) 10 ML SYRINGE 5 ML IVF ×2 (10:23→21:30)
--- NOTE | 2024-05-01 11:36 | PC.SOCIAL ---
Addendum entered by GERARDO Bhat 05/01/24 16:47: Discharge planning: farmworker general spoke to pt over the phone this afternoon. Pt shared that his living situation has been going well at [facility] and he has no concerns with returning there at discharge. Social work to follow-up as needed. Original Note: Discharge planning: farmworker general spoke to JOSETTE Hutton at [facility] in town where the pt lives, #[phone] option #3, and shared that the pt would be staying in the hospital tonight and most likely ready for discharge tomorrow. Anni asked for a nurse to nurse report. farmworker general will relay the message to pt's nurse. Anni said that [facility] would be able to pick the pt up from the hospital when he is ready for discharge. Social work to follow-up as needed.
[2024-05-01 14:59] LABS: SARS Antigen* POSITIVE (Negative)
--- NOTE | 2024-05-01 15:16 | PC.NURSE ---
Shift Summary: Patient pleasant and cooperative. Up with SBA in room. Continues to have alberts, patent with clear urine, large amount of output MD updated and still okay to give scheduled medications. Vitals stable, BP elevated with morning. Denies dizziness, headache or SOB. Denies pain. Tolerating regular diet well. BG managed with scheduled medications, see MAR. Patient able to talk with nutrition today and given print out of instructions. O2 sat >90% on RA. Using call light appropriately. C/o some throat soreness and cough, see MAR for PRN medication.
--- NOTE | 2024-05-01 17:28 | PM.IMPN1 ---
Progress Note: A&P Assessment and plan (1) Syncope: Problem details: Probably due to hypoglycemia. Status: Acute (2) Hypoglycemia: Problem details: Had low blood sugars on depressed admission. Insulin doses reduced by 30% and still having hypoglycemia. Continue to adjust insulin doses. Status: Acute (3) Acute urinary retention: Problem details: Probably primarily secondary to medications, antihistamines. Stop Benadryl and trihexyphenidyl. Trial of voiding or outpatient catheter management? Status: Acute (4) EDUARDO (acute kidney injury): Problem details: Improved overnight Status: Acute (5) Acute hyponatremia: Problem details: Stable at baseline Status: Acute (6) Polypharmacy: Problem details: Multiple psychoactive medications for management of bipolar disorder Status: Acute Assessment and Plan: Possibly contributing to urinary retention. With ongoing concerns about bipolar disorder I am reluctant to substantially changed his medications (7) Chronic hyponatremia: Problem details: Currently at baseline Status: Acute (8) COVID: Problem details: Uncertain of onset. No respiratory failure. Mild symptoms are resolving Status: Acute Plan Continue in hospital for evaluation management of syncope, hypoglycemia, urinary retention. Total time spent today is 45 minutes in reviewing records and discussing with patient and other providers ongoing management of these problems Subjective Date Seen: 05/01/24 Interval history: Timur Krishnamurthy is a 54 year old male with a complicated medical history who was discharged from this hospital yesterday and he was found unconscious in late morning in his room at the assisted living facility where he lives. He had a weak pulse, blood pressure, and was hypoxic. His glucose was 63 and he received an amp of D50 which brought him up to a glucose of 140. EMS was preparing to intubate but then he woke up. Rustam is a poor historian with rambling and tangential speech and tells me that he remembers this episode, but could not give me any substantial information about what he was feeling that led up to it or what happened right before he became unconscious. There was no witness to the event. He tells me that he has never had anything like this happen before, but the knee goes on to say that when he was a teenager he sometimes had events like this due to medications. He feels back to normal this evening. He denies any headache or vision changes, chest pain or shortness of breath. He is unable to tell me much information about how long he has been on his medications, but does say that the only medications he takes are those given to him by [facility]. He was discharged from here yesterday after hospital stay for acute encephalopathy, influenza a, COVID, and acute hyponatremia. He also had hypoglycemia during his recent hospital stay. His medications were adjusted including lower insulin doses upon discharge. 05/01/2024: Patient does not remember the events of yesterday. Doing he remembers is waking up with the paramedics around him. Since that time he reports feeling fine. He reports no symptoms of illness, fever, cold, cough, chest pain, shortness of breath. Reports he has been eating normally. No nausea or vomiting. He is not aware of any urinary symptoms. He had greater than 1 L of urine in his bladder yesterday and has a Logan catheter in place. No history of urinary retention. Exam Narrative: Exam Narrative: He is alert and appears in no distress. He is more calm today. Less talkative and energetic than at discharge 2 days ago. Oropharynx is normal. Respirations are clear to auscultation. Cardiovascular: S1, S2, regular rate and rhythm. Abdomen: Bowel sounds active. Abdomen is soft without tenderness or mass. Extremities without edema. He moves all 4 extremities well. Logan catheter in place. Const: Vital Signs, click to edit/add: Vital Signs - 24 hr 04/30/24 17:30 04/30/24 17:34 04/30/24 17:45 Temperature Pulse Rate 76 76 75 Pulse Rate [Pulse Oximeter] Respiratory Rate Blood Pressure 152/78 H Blood Pressure [Le ft Arm] Pulse Oximetry 100 100 100 Oxygen Delivery [facility] 04/30/24 17:47 04/30/24 18:00 04/30/24 18:02 Temperature Pulse Rate 76 73 76 Pulse Rate [Pulse Oximeter] Respiratory Rate Blood Pressure 172/98 H 168/89 H Blood Pressure [Le ft Arm] Pulse Oximetry 100 100 100 Oxygen Delivery [facility] 04/30/24 18:15 04/30/24 18:17 04/30/24 18:30 Temperature Pulse Rate 81 84 75 Pulse Rate [Pulse Oximeter] Respiratory Rate Blood Pressure 159/116 H Blood Pressure [Le ft Arm] Pulse Oximetry 100 100 100 Oxygen Delivery [facility] 04/30/24 18:32 04/30/24 18:45 04/30/24 18:47 Temperature Pulse Rate 75 75 76 Pulse Rate [Pulse Oximeter] Respiratory Rate Blood Pressure 160/92 H 165/94 H Blood Pressure [Le ft Arm] Pulse Oximetry 100 99 97 Oxygen Delivery Me thod 04/30/24 19:42 04/30/24 20:55 04/30/24 23:00 Temperature Pulse Rate 81 Pulse Rate [Pulse Oximeter] 79 Respiratory Rate 18 Blood Pressure Blood Pressure [Le ft Arm] 122/89 Pulse Oximetry 100 100 Oxygen Delivery Me thod Room Air 04/30/24 23:03 05/01/24 02:34 05/01/24 07:00 Temperature 97.8 F Pulse Rate Pulse Rate [Pulse Oximeter] 81 Respiratory Rate 16 16 Blood Pressure Blood Pressure [Le ft Arm] 151/84 H Pulse Oximetry 100 100 99 Oxygen Delivery Me od Room Air Room Air Room Air 05/01/24 08:32 05/01/24 10:00 05/01/24 10:28 Temperature 98.1 F 97.6 F Pulse Rate 94 Pulse Rate [Pulse Oximeter] 88 92 Respiratory Rate 18 16 Blood Pressure Blood Pressure [Le ft Arm] 203/101 H 165/94 H Pulse Oximetry 99 99 Oxygen Delivery Me thod Room Air Room Air 05/01/24 15:00 05/01/24 15:00 05/01/24 15:00 Temperature 98.6 F Pulse Rate Pulse Rate [Pulse Oximeter] 82 82 Respiratory Rate 18 18 Blood Pressure Blood Pressure [Le ft Arm] 175/94 H Pulse Oximetry 97 97 Oxygen Delivery Me od Room Air Room Air 05/01/24 15:00 Temperature Pulse Rate 83 Pulse Rate [Pulse Oximeter] Respiratory Rate Blood Pressure Blood Pressure [Le ft Arm] Pulse Oximetry Oxygen Delivery Me thod Documenting provider has reviewed patient's vital signs: yes Labs Labs: Laboratory Results - last 24 hr 04/30/24 04/30/24 05/01/24 13:15 20:18 06:22 WBC 6.32 RBC 3.97 L Hgb 11.9 L Hct 34.4 L MCV 87 MCH 30 MCHC 35 RDW Coeff of Arlene 13.0 Plt Count 163 Neut % (Auto) 61.5 Lymph % (Auto) 21.8 Bourbon % (Auto) 16.3 H Eos % (Auto) 0.0 Baso % (Auto) 0.2 Neut # (Auto) 3.89 Lymph # (Auto) 1.38 Bourbon # (Auto) 1.00 H Eos # (Auto) 0.00 Baso # (Auto) 0.01 Abs Immat Gran (auto) 0.01 Imm/Tot Granulo (auto) 0.2 Sodium 131 L Potassium 4.6 Chloride 98 Carbon Dioxide 28 Anion Gap 5 L BUN 21 Creatinine 0.8 Estimated Creat Clear 108.99 Estimated GFR 105 Glucose 98 Calcium 8.5 Total Creatine Kinase 360 H C-Reactive Protein 7.0 H SARS-CoV-2 Ag (Rapid) Lab Acknowledgement Test Added 05/01/24 14:27 WBC RBC Hgb Hct MCV MCH MCHC RDW Coeff of Arlene Plt Count Neut % (Auto) Lymph % (Auto) Bourbon % (Auto) Eos % (Auto) Baso % (Auto) Neut # (Auto) Lymph # (Auto) Bourbon # (Auto) Eos # (Auto) Baso # (Auto) Abs Immat Gran (auto) Imm/Tot Granulo (auto) Sodium Potassium Chloride Carbon Dioxide Anion Gap BUN Creatinine Estimated Creat Clear Estimated GFR Glucose Calcium Total Creatine Kinase C-Reactive Protein SARS-CoV-2 Ag (Rapid) POSITIVE A Lab Acknowledgement
[2024-05-01] MEDS: ROSUVASTATIN CALCIUM 10 MG TABLET 20 MG PO (21:29)
[2024-05-01] MEDS: QUETIAPINE 100 MG TABLET 200 MG PO (21:30)
[2024-05-01] MEDS: INSULIN GLARGINE,HUM.REC.ANLOG 100 UNIT/ML INSULN.PEN 15 UNIT SUBCUT (21:30)
--- NOTE | 2024-05-01 23:28 | PC.NURSE ---
End of Shift: Patient pleasant and cooperative. Afebrile. Denies pain. O2 sats greater than 90% on room air. BP 187/91 at second check, updated MD and no new orders at this time. Up to chair and bathroom with SBA. Tolerating regular diet with no nausea. Logan patent.
[2024-05-02 02:10] VITALS: BP 106/71; PULSE 78; RESP 14; O2SAT 98
--- NOTE | 2024-05-02 06:24 | PC.NURSE ---
End of shift [id number]: A&O but pt was quite sleepy this evening. Pt awakes easily but will fall right back to sleep. Blood sugars stable overnight. Logan removed this morning. VSS, sats stable on room air. Seizure precautions in place. update given to sister via phone.
[2024-05-02 07:00] VITALS: BP 155/85; PULSE 82; PULSE 96; RESP 18; TEMP 36.8; O2SAT 95; O2SAT 97
[2024-05-02] MEDS: METFORMIN 1,000 MG TABLET 1000 MG PO (09:13)
[2024-05-02] MEDS: EMPAGLIFLOZIN 10 MG TABLET PO (09:13)
[2024-05-02] MEDS: lisinopriL 10 MG TABLET PO (09:13)
[2024-05-02] MEDS: ALPRAZolam 0.25 MG TABLET PO (09:13)
[2024-05-02] MEDS: ASPIRIN 81 MG TABLET EC PO (09:13)
[2024-05-02] MEDS: MULTIVITAMIN/MINERALS 1 TABLET 1 TAB PO (09:14)
[2024-05-02] MEDS: GABAPENTIN 300 MG CAPSULE 900 MG PO (09:14)
[2024-05-02] MEDS: BUSPIRONE 10 MG TABLET 30 MG PO (09:14)
[2024-05-02] MEDS: TAMSULOSIN HCL 0.4 MG CAPSULE PO (09:14)
[2024-05-02] MEDS: INSULIN ASPART 100 UNIT/ML SUBCUT ×2 (09:15→12:37)
[2024-05-02] MEDS: FUROSEMIDE 20 MG TABLET PO (09:15)
[2024-05-02] MEDS: SODIUM CHLORIDE 0.9 % (FLUSH) 10 ML SYRINGE 5 ML IVF (09:16)
[2024-05-02] MEDS: DIVALPROEX DELAYED RELEASE 250 MG TABLET 1000 MG PO (09:16)
--- NOTE | 2024-05-02 09:33 | PC.SOCIAL ---
Discharge planning: Called [facility], where pt lives, and confirmed nurse can be contacted for a nurse to nurse report prior to discharge back at [phone] option 3. [facility] will arrange transportation after that call. mechanical repair worker to follow up as needed.
[2024-05-02 11:00] VITALS: BP 102/84; PULSE 84; RESP 16; TEMP 36.6; O2SAT 93
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
--- NOTE | 2024-05-02 16:09 | PC.NURSE ---
DC: Pt alert, oriented and vitally stable, though has periods of forgetfulness. Flat affect noted. Pt states notable tremor and tic of the face is baseline. Pt up to the bathroom independently throughout shift, tolerates well. Pt bladder scanned, 130 mL remaining. IVs removed, tips intact. Nurse to nurse given to Anni at [place]. DC information given. Pt DC back to [facility] with aid at [phone].
== END 2024-05-02 15:40 | disposition home or self-care (01) | DRG 640 ==
LOC: ED 17:49 → MEDSURG 19:05
PROVIDERS: Family Medicine; Admitting Provider Family Medicine; Emergency Provider Emergency Medicine; PCP Family Medicine; Visit Provider Family Medicine
DX: E16.2 Hypoglycemia, unspecified (principal); U07.1 COVID-19; E87.1 Hypo-osmolality and hyponatremia; N17.9 Acute kidney failure, unspecified; R55 Syncope and collapse; F31.9 Bipolar disorder, unspecified; I10 Essential (primary) hypertension; I25.10 Atherosclerotic heart disease of native coronary artery without angina pectoris; E78.5 Hyperlipidemia, unspecified; Z79.899 Other long term (current) drug therapy; R33.0 Drug induced retention of urine; T45.0X5A Adverse effect of antiallergic and antiemetic drugs, initial encounter; T44.3X5A Adverse effect of other parasympatholytics [anticholinergics and antimuscarinics] and spasmolytics, initial encounter; J10.1 Influenza due to other identified influenza virus with other respiratory manifestations; Z87.891 Personal history of nicotine dependence; E11.8 Type 2 diabetes mellitus with unspecified complications; Z79.4 Long term (current) use of insulin; Z79.84 Long term (current) use of oral hypoglycemic drugs; F41.1 Generalized anxiety disorder; I25.2 Old myocardial infarction; E11.3299 Type 2 diabetes mellitus with mild nonproliferative diabetic retinopathy without macular edema, unspecified eye
CPT/HCPCS: 51702; 36415; 51798; 80048; 80076; 80143; 80179; 80306; 81001; 82077; 82550; 82803; 82962; 83605; 83735; 84484; 85025; 86140; 87086; 87426; 93005; 94761; 99285; G0378; A9153; A9270; J1815

== ENCOUNTER 2024-05-04 09:30 | Outpatient (CLI) | payer MEDICARE, MEDICAID, SELFPAY | END 2024-05-04 09:31 | disposition home or self-care (01) | LOC: WOUND 09:30 | PROVIDERS: PCP Family Medicine; Visit Provider Nurse Practitioner Family | DX: E11.621 Type 2 diabetes mellitus with foot ulcer (principal); L97.522 Non-pressure chronic ulcer of other part of left foot with fat layer exposed; Z79.4 Long term (current) use of insulin; Z79.84 Long term (current) use of oral hypoglycemic drugs | CPT/HCPCS: 11042 ==

== ENCOUNTER 2024-05-10 10:32 | Outpatient (CLI) | payer MEDICARE, MEDICAID, SELFPAY | END 2024-05-10 10:33 | disposition home or self-care (01) | LOC: NFLDREF 05-14 03:26 | PROVIDERS: PCP Family Medicine; Referring Provider Family Medicine; Visit Provider Nurse Practitioner Family | DX: N30.00 Acute cystitis without hematuria (principal); T83.511A Infection and inflammatory reaction due to indwelling urethral catheter, initial encounter; B95.2 Enterococcus as the cause of diseases classified elsewhere | CPT/HCPCS: 87086; 87186 ==

== ENCOUNTER 2024-05-11 09:17 | Outpatient (CLI) | payer MEDICARE, MEDICAID, SELFPAY | END 2024-05-11 09:18 | disposition home or self-care (01) | LOC: WOUND 09:17 | PROVIDERS: PCP Family Medicine; Visit Provider Nurse Practitioner Family | DX: E11.621 Type 2 diabetes mellitus with foot ulcer (principal); L97.412 Non-pressure chronic ulcer of right heel and midfoot with fat layer exposed; Z79.4 Long term (current) use of insulin; Z79.84 Long term (current) use of oral hypoglycemic drugs | CPT/HCPCS: 11042 ==

== ENCOUNTER 2024-05-18 09:32 | Outpatient (CLI) | payer MEDICARE, MEDICAID, SELFPAY | END 2024-05-18 09:33 | disposition home or self-care (01) | LOC: WOUND 09:33 | PROVIDERS: PCP Family Medicine; Visit Provider Nurse Practitioner Family | DX: E11.621 Type 2 diabetes mellitus with foot ulcer (principal); L97.522 Non-pressure chronic ulcer of other part of left foot with fat layer exposed; Z79.4 Long term (current) use of insulin; Z79.84 Long term (current) use of oral hypoglycemic drugs | CPT/HCPCS: 11042 ==

== ENCOUNTER 2024-05-25 09:22 | Outpatient (CLI) | payer MEDICARE, MEDICAID, SELFPAY | END 2024-05-25 09:23 | disposition home or self-care (01) | LOC: WOUND 09:23 | PROVIDERS: PCP Family Medicine; Visit Provider Physician Assistant | DX: E11.621 Type 2 diabetes mellitus with foot ulcer (principal); L97.522 Non-pressure chronic ulcer of other part of left foot with fat layer exposed; Z79.4 Long term (current) use of insulin; Z79.84 Long term (current) use of oral hypoglycemic drugs | CPT/HCPCS: 97597 ==

== ENCOUNTER 2024-06-01 09:22 | Outpatient (CLI) | payer MEDICARE, MEDICAID, SELFPAY | END 2024-06-01 09:23 | disposition home or self-care (01) | LOC: WOUND 09:23 | PROVIDERS: PCP Family Medicine; Visit Provider Physician Assistant Surgical | DX: E11.621 Type 2 diabetes mellitus with foot ulcer (principal); L97.522 Non-pressure chronic ulcer of other part of left foot with fat layer exposed; Z79.4 Long term (current) use of insulin; Z79.84 Long term (current) use of oral hypoglycemic drugs | CPT/HCPCS: 11042 ==

== ENCOUNTER 2024-06-08 09:22 | Outpatient (CLI) | payer MEDICARE, MEDICAID, SELFPAY | END 2024-06-08 09:23 | disposition home or self-care (01) | LOC: WOUND 09:22 | PROVIDERS: PCP Family Medicine; Visit Provider Nurse Practitioner Family | DX: E11.621 Type 2 diabetes mellitus with foot ulcer (principal); L97.528 Non-pressure chronic ulcer of other part of left foot with other specified severity; Z79.4 Long term (current) use of insulin; Z79.84 Long term (current) use of oral hypoglycemic drugs | CPT/HCPCS: 29445 ==

== ENCOUNTER 2024-06-15 09:25 | Outpatient (CLI) | payer MEDICARE, MEDICAID, SELFPAY | END 2024-06-15 09:26 | disposition home or self-care (01) | LOC: WOUND 09:26 | PROVIDERS: PCP Family Medicine; Visit Provider Nurse Practitioner Family | DX: E11.621 Type 2 diabetes mellitus with foot ulcer (principal); L97.528 Non-pressure chronic ulcer of other part of left foot with other specified severity; Z79.4 Long term (current) use of insulin; Z79.84 Long term (current) use of oral hypoglycemic drugs | CPT/HCPCS: G0463 ==

== ENCOUNTER 2024-06-22 09:24 | Outpatient (CLI) | payer MEDICARE, MEDICAID, SELFPAY | END 2024-06-22 09:25 | disposition home or self-care (01) | LOC: WOUND 09:24 | PROVIDERS: PCP Family Medicine; Visit Provider Physician Assistant | DX: Z09 Encounter for follow-up examination after completed treatment for conditions other than malignant neoplasm (principal); Z86.31 Personal history of diabetic foot ulcer; Z79.4 Long term (current) use of insulin; Z79.84 Long term (current) use of oral hypoglycemic drugs | CPT/HCPCS: G0463 ==

== ENCOUNTER 2024-09-05 08:03 | Outpatient (CLI) | payer MEDICARE, MEDICAID, SELFPAY | END 2024-09-05 08:04 | disposition home or self-care (01) | LOC: WOUND 08:03 | PROVIDERS: PCP Family Medicine; Visit Provider Nurse Practitioner Family | DX: E11.621 Type 2 diabetes mellitus with foot ulcer (principal); L97.522 Non-pressure chronic ulcer of other part of left foot with fat layer exposed; Z79.4 Long term (current) use of insulin; R41.82 Altered mental status, unspecified | CPT/HCPCS: 11042; G0463 ==

== ENCOUNTER 2024-09-12 12:57 | Outpatient (CLI) | payer MEDICARE, MEDICAID, SELFPAY | END 2024-09-12 12:58 | disposition home or self-care (01) | LOC: WOUND 12:57 | PROVIDERS: PCP Family Medicine; Visit Provider Nurse Practitioner Family | DX: E11.621 Type 2 diabetes mellitus with foot ulcer (principal); L97.528 Non-pressure chronic ulcer of other part of left foot with other specified severity; Z79.4 Long term (current) use of insulin | CPT/HCPCS: G0463 ==

== ENCOUNTER 2024-09-26 08:48 | Outpatient (CLI) | payer MEDICARE, MEDICAID, SELFPAY | END 2024-09-26 08:49 | disposition home or self-care (01) | LOC: WOUND 08:48 | PROVIDERS: PCP Family Medicine; Visit Provider Nurse Practitioner Family | DX: E11.9 Type 2 diabetes mellitus without complications (principal); Z09 Encounter for follow-up examination after completed treatment for conditions other than malignant neoplasm; Z86.31 Personal history of diabetic foot ulcer; Z79.4 Long term (current) use of insulin; Z79.84 Long term (current) use of oral hypoglycemic drugs | CPT/HCPCS: G0463 ==

== ENCOUNTER 2024-12-20 17:18 | Outpatient (CLI) | payer MEDICARE, MEDICAID, SELFPAY | END 2024-12-20 17:19 | disposition home or self-care (01) | PROVIDERS: PCP Family Medicine; Visit Provider Student in an Organized Health Care Education/Training Program | DX: R42 Dizziness and giddiness (principal); S01.81XA Laceration without foreign body of other part of head, initial encounter; W18.30XA Fall on same level, unspecified, initial encounter; Y92.038 Other place in apartment as the place of occurrence of the external cause | CPT/HCPCS: A0425; A0429 ==

== ENCOUNTER 2024-12-20 17:43 | Emergency (ER) | payer MEDICARE, MEDICAID, SELFPAY ==
--- OUTSIDE RECORDS SUMMARY | 2024-12-11 14:30 | XMS_ITS | Encounter Summary ---
Author Organization [facility] Address [address] [place] [address] Care Team Providers Care Gis Web Developer Name Role Phone Zhane Stanley DO Primary Care Provider [phone] Reason for Visit * Reason Comments Follow-up Encounter Details Date Type Department Care Team (Late st Contact Info) Description 12/11/2024 2:30 PM CDT Office Visit [facility] [address] [place] [address] Mike Edmondson MD [address] [place] [address] Chronic kidney disease, stage 2 (mild) (Primary Dx); Type 2 diabetes mellitus with diabetic chronic kidney disease (HCC); Hypo-osmolality and hyponatremia; Hypertensive chronic kidney disease, benign, with chronic kidney disease stage I through stage IV, or unspecified Social History Tobacco Use Types Packs/Day [...] Sign Reading Time Taken Comments Blood Pressure 108/62 12/11/2024 2:39 PM CDT Pulse 71 12/11/2024 2:39 PM CDT Temperature - - Respiratory Rate - - Oxygen Saturation 98% 12/11/2024 2:39 PM CDT Inhaled Oxygen Concentration - - Weight 84.4 kg (186 lb) 12/11/2024 2:39 PM CDT Height 177.8 cm (5' 10) 12/11/2024 2:39 PM CDT Body Mass Index 26.69 12/11/2024 2:39 PM CDT documented in this encounter Patient Instructions * Patient Instructions* Brisa Paulino - 12/11/2024 2:30 PM CDT Is very nice to see you again today. You are doing very well. I added on the electrolyte panel to the blood work that you have already had drawn. As soon as those labs result, I will give you a call and update you. Keep up the great work and lets plan to see one another again in 1 year. Have a great rest of your summer. We will contact you to schedule your 1 year follow up when the schedule becomes available. Labs should be completed 1-2 weeks prior. They will be faxed to [place] Edmondson/JACLYN Ledezma documented in this encounter Progress Notes * Mike Edmondson MD - 12/11/2024 2:30 PM CDT Images from the original note were not included. Patient: Timur Krishnamurthy Date of : 1970 Chart: [id number] PCP: Zhane Stanley DO Date of Service: 12/11/2024 Chief Complaint: Hyponatremia Subjective: Patient returns in follow-up of the above. He was seen last in May 2024. At that time he was doing well, completing an antibiotic course for cellulitis. Feeling well overall. No new hospitalizations. Had a bout of cellulitis in the left foot that is currently healing and completing a course of antibiotic. Delete that Medications for this visit September 2024: Sodium 139 Creatinine 1.18 Potassium 4.9 Had blood work done earlier today at 9:30 AM but a chemistry panel was not performed. He is anxiousabout being able to start driving again so he would be able to attend hockey games where his nephews live in [place], [place]. Tolerating his current medications well. No hospitalizations or illnesses. Aside from being anxious at this time regarding his laboratory testing, he has been doing well overall. Assessment & Plan Problem List Hypertensive chronic kidney disease, benign, with chronic kidney disease stage I through stage IV, or unspecified Current Assessment & Plan Stable. Excellent control on current medication regimen. Continue. Type 2 diabetes mellitus with diabetic chronic kidney disease (HCC) (Chronic) Overview Present for decades. Baseline A1c between 10-11 range. + Bilateral retinopathy. Current Assessment & Plan Stable. Most recent A1c from April 2024 was excellent at 6.3. Current value A1c pending. Otherwise defer further to PCP. Chronic kidney disease, stage 2 (mild) - Primary (Chronic) Overview Baseline creatinine approximately 1-1.2 range for several years. Longstanding, documented albuminuria, first identified November 2010 at 39 mg/g (from 8772-8149, values arranged between 80-150 mg/g). Recent values from August 2019 at 542 mg/g and 1281 mg/g in April 2022. Urine albumin creatinine ratio from September 2023 at 1527 mg/g. 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 Current Assessment & Plan Stable GFR. Tolerating current medications nicely including SGLT2 inhibitor and LEANDER inhibitor. Hypo-osmolality and hyponatremia (Chronic) Overview Levels ranging between 126-133 since 2010. Urine osmolality in February 2021: 546. TSH 0.63 and spot cortisol 13.1 in February 2021. 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 Current Assessment & Plan Stable. Most recent sodium from September was very normal. He was asked to continue his current fluid restriction as well as medications. We will add on sodium value to the blood work that is currently int[facility] and await those values. I trust they will appear to do well. If labs today are within normal limits, I would not keep him from driving from strictly a renal/electrolyte perspective. Return in about 1 year (around 12/11/2025) for Recheck. Mike Edmondson MD [facility] The following portions of the patient's chart [...] kidney disease (HCC) Atherosclerotic heart disease of [place] coronary artery without angina pectoris Chronic kidney [...] acetaminophen dose: 4000mg in 24hrs.) ALPRAZolam (XANAX) 0.25 MG tablet Bharathi Nguyen MD Take 1 tablet (0.25 mg) every morning AND 1 tablet (0.25 mg) every evening. Further refills will beprescribed during an appointment aspirin (ST BINTA) 81 MG EC tablet Bharathi Nguyen MD Take 81 mg by mouth 1 (one) time each day with breakfast benzonatate (TESSALON) 100 MG capsule Bharathi Nguyen MD Take 100 mg by mouth 3 (three) times a day if needed for cough Do not crush or chew. busPIRone (BUSPAR) 30 MG tablet Bharathi Nguyen MD Take 30 mg by mouth in the morning and 30 mg in the evening. calcium carbonate (TUMS) 500 MG chewable tablet Bharathi Nguyen MD Chew 1 tablet 1 (one) time each day chlorhexidine (PERIDEX) 0.12 % solution Bharathi Nguyen MD Use 15 mL in the mouth or throat in the morning and 15 mL in the evening. diphenhydrAMINE (BENADRYL) 25 MG capsule Bharathi Nguyen MD Take 25 mg by mouth every 6 (six) hours if needed for itching divalproex (DEPAKOTE) 500 MG EC tablet Bharathi Nguyen MD Take 1,000 mg by mouth in the morning and 1,000 mg in the evening. Empagliflozin 10 MG tablet Bharathi Nguyen MD Take 10 mg by mouth in the morning. famotidine (PEPCID) 20 MG tablet Bharathi Nguyen MD Take 20 mg by mouth in the morning and 20 mg in the evening. furosemide (LASIX) 40 MG tablet Mike Edmondson MD TAKE 1 TABLET BY MOUTH DAILY Notes: 09/18/2024 PROACTIVE REFILL REQUEST FOR NEXT CYCLE PLEASE THANK YOU gabapentin (NEURONTIN) 300 MG capsule Bharathi Nguyen MD Take 900 mg by mouth in the morning and 900 mg in the evening and 900 mg before bedtime. guaiFENesin (ROBITUSSIN) 100 MG/5ML liquid Bharathi Nguyen MD Take 200 mg by mouth 3 (three) times a day if needed for cough insulin degludec (TRESIBA FLEX TOUCH) 200 UNIT/ML injection Bharathi Nguyen MD Inject 14 Units under the skin every night Insulin Lispro, 1 Unit Dial, 100 UNIT/ML solution pen-injector Bharathi Nguyen MD Inject 5 Units under the skin in the morning and 5 Units at noon and 5 Units in the evening. lisinopril 10 MG tablet Bharathi Nguyen MD Take 10 mg by mouth in the morning. loperamide (IMODIUM A-D) 2 MG tablet Bharathi Nguyen MD Take 2 mg by mouth 4 (four) times a day if needed for diarrhea magnesium hydroxide (MILK OF MAGNESIA) 400 MG/5ML suspension Bharathi Nguyen MD Take 15-30 mL by mouth 1 (one) time each day if needed Melatonin 5 MG capsule Bharathi Nguyen MD Take 1 tablet by mouth if needed metFORMIN (GLUCOPHAGE) 1000 MG tablet Bharathi Nguyen MD Take 1,000 mg by mouth in the morning and 1,000 mg in the evening. Take with meals. mineral oil-hydrophilic petrolatum (AQUAPHOR) ointment Bharathi Nguyen MD Apply topically if needed for dry skin multivitamin (THERAGRAN) tablet Bharathi Nguyen MD Take 1 tablet by mouth 1 (one) time each day nicotine polacrilex (COMMIT) 2 MG lozenge Bharathi Nguyen MD PLACE 1 LOZENGE IN MOUTH, BETWEEN CHEEK & GUM EVERY 1 HOUR WHILE AWAKE NEEDED FOR CRAVINGS *MAX OF 20 DOSES PER DAY* ondansetron ODT (ZOFRAN-ODT) 4 MG dispersible tablet Bharathi Nguyen MD Place 4 mg under the tongue every 8 (eight) hours if needed for nausea or vomiting Paliperidone Palmitate ER 234 MG/1.5ML suspension prefilled syringe Bharathi Nguyen MD Inject 234 mg into the shoulder, thigh, or buttocks every 21 (twenty-one) days polyethylene glycol (GLYCOLAX) 17 GM/SCOOP powder Bharathi Nguyen MD Take 17 g by mouth 1 (one) time each day if needed (constipation) propranolol LA (INDERAL LA) 80 MG 24 hr capsule Bharathi Nguyen MD Take 80 mg by mouth in the morning. QUEtiapine (SEROquel) 200 MG tablet Bharathi Nguyen MD Take 200 mg by mouth every night QUEtiapine (SEROquel) 25 MG tablet Bharathi Nguyen MD Take 1 tablet (25 mg) by mouth 3 times daily if needed for agitation, anxiety. Wait at least 1 hourbetween doses rosuvastatin (CRESTOR) 20 MG tablet Bharathi Nguyen MD Take 20 mg by mouth every night sodium chloride 1 g tablet Mike Edmondson MD Take 1 tablet (1 g total) by mouth in the morning and 1 tablet (1 g total) in the evening. Take before meals. Throat Lozenges (HALLS COUGH DROPS MT) Bharathi Nguyen MD Use in the mouth or throat trihexyphenidyl (ARTANE) 2 MG tablet PatrickBharathi MD Take 2 mg by mouth in the morning and 2 mg in the evening. Ventolin HFA 108 (90 Base) MCG/ACT inhaler ProviderBharathi MD Allergies Allergen Reactions Nitroglycerin Nausea And Vomiting [...] the form of lozenges. Physical Exam BP 108/62 (BP Location: Right upper arm, Patient Position: Sitting, BP Cuff Size: Adult) Pulse 71 Ht 5' 10 (1.778 m) Wt 186 lb (84.4 kg) SpO2 98% BMI 26.69 kg/m?? Vitals reviewed. Constitutional: He is oriented to person, place, and time. Cardiovascular: Normal rate and regular rhythm. He exhibits no edema. Pulmonary/Chest: Effort normal. Abdominal: Soft. Musculoskeletal: Normal range of motion. Neurological: He is alert and oriented to person, place, and time. Skin: Skin is warm and dry. Psychiatric: He has a normal mood and affect. His behavior is normal. Judgment normal. Chemistry and Bone Mineral Lab Units 09/24/24 0000 06/05/24 1313 05/21/24 0000 05/07/24 1502 03/03/24 0634 03/02/24 0549 03/01/24 1411 01/06/24 1544 01/06/24 0000 09/23/23 1129 09/23/23 0000 07/12/23 1330 07/12/23 0000 04/12/23 0907 03/15/23 1300 03/02/23 1352 SODIUM mEq/L 139 -- 127* -- 134* 131* 130* 129* 129* 129* < > 128* < > 129* 129* 126* POTASSIUM mEq/L 4.9 -- 5.3 -- 5.2* 5.1 4.8 5.2* 5.2* 4.9 < > 4.9 < > 5.4* 4.8 5 CHLORIDE 98 -- 95* -- -- -- 92* 93* 93* 92* < > 93* < > 93* 90* 91* CO2 mmol/L 29 -- 23 -- -- -- 25 27 27 25 < > 24 < > 27 27 25 ANION GAP -- -- -- -- -- -- 13 9 -- 12 -- 11 -- 9 12 10 MAGNESIUM mg/dL -- -- -- -- 2.4 2.3 2.2 -- -- -- -- -- -- -- -- -- CALCIUM mg/dL 9.6 -- 8.5* -- -- -- 9 9.2 9.2 9.4 < > 9 < > 9.1 9.1 9.1 ALK PHOS IU/L -- -- -- -- -- -- 53 -- -- -- -- -- -- -- -- -- VITAMIN D ng/mL -- 51 -- -- -- -- -- -- -- -- -- -- -- -- -- -- GLUCOSE mg/dL 160* -- 97 -- -- -- 118* 96 96 164* < > 82 < > 191* 129* 87 ALBUMIN g/dL -- -- -- -- -- -- 3.5* -- -- -- -- -- -- -- -- -- BUN mg/dL 28* -- 24 -- -- -- 25* 23* 23* 19 < > 20 < > 18 20 18 CREATININE mg/dL 1.18 -- 1.04 -- 1.11 1.02 1.14 1.12 1.12 1.04 < > 1.04 < > 1.06 1.19 1.22* EGFR 73 -- 85 -- 79* 87* 76* 79* 79* 86* < > 86* < > 84* 73* 71* HEMOGLOBIN A1C % OF TOTAL HGB -- -- -- 6.3* -- -- -- -- -- 6.2 -- -- -- -- -- 6.3 < > = values in this interval not displayed. CBC and Iron Studies Lab Units 03/08/24 1202 03/03/24 0634 03/02/24 0549 07/12/23 0000 WBC AUTO K/uL -- -- -- 5.0 HEMATOCRIT % -- -- -- 36.8* HEMOGLOBIN g/dL 12.2* 11.2* 12.1* 13.1* MCV fL -- 89 89 84 PLATELETS AUTO -- -- -- 168 TIBC mcg/dL (calc) 271 -- -- -- IRON SATURATION % (calc) 28 -- -- -- Urine Lab Units 10/10/23 1132 ALB MG/G CREAT UR mg/g creat 1,527.8* I have performed a complete review of pertinent lab results. documented in this encounter Miscellaneous Notes * Assessment & Plan Note - Mike Edmondson MD - 12/11/2024 3:07 PM CDTAssociated Problem(s): Chronic kidney disease, stage 2 (mild) Stable GFR. Tolerating current medications nicely including SGLT2 inhibitor and LEANDER inhibitor. * Assessment & Plan Note - Mike Edmondson MD - 12/11/2024 3:07 PM CDTAssociated Problem(s): Hypertensive chronic kidney disease, benign, with chronic kidney disease stage I through stage IV, or unspecified Stable. Excellent control on current medication regimen. Continue. * Assessment & Plan Note - Mike Edmondson MD - 12/11/2024 3:07 PM CDTAssociated Problem(s): Hypo-osmolality and hyponatremia Stable. Most recent sodium from September was very normal. He was asked to continue his current fluid restriction as well as medications. We will add on sodium value to the blood work that is currently int[facility] and await those values. I trust they will appear to do well. If labs today are within normal limits, I would not keep him from driving from strictly a renal/electrolyte perspective. * Assessment & Plan Note - Mike Edmondson MD - 12/11/2024 3:06 PM CDTAssociated Problem(s): Type 2 diabetes mellitus with diabetic chronic kidney disease (HCC) Stable. Most recent A1c from April 2024 was excellent at 6.3. Current value A1c pending. Otherwise defer further to PCP. documented in this encounter Plan of Treatment Not on file documented as of this encounter Visit Diagnoses Diagnosis Chronic kidney disease, stage 2 (mild)- Primary Type 2 diabetes mellitus with diabetic chronic kidney disease (HCC) Hypo-osmolality and hyponatremia Hypertensive chronic kidney disease, benign, with chronic kidney disease stage I through stage IV, or unspecified documented in this encounter Care Teams Gis Web Developer Relationship Specialty Start Date End Date Zhane Stanley DO [address] [place] [address] PCP - General Family Medicine 07/27/23 documented as of this encounter
[2024-12-20] VITALS (7 sets, daily range): BP systolic 73–180; BP diastolic 49–88; PULSE 73–88; RESP 16; TEMP 36.9; O2SAT 96
--- OUTSIDE RECORDS SUMMARY | 2024-12-20 17:45 | XMS_ITS | Encounter Summary ---
Author Organization [facility] Address [address] [place] [address] Care Team Providers Care Cracker And Cookie Machine Operator Name Role Phone Zhane Stanley DO Primary Care Provider [phone] Encounter Details Date Type Department Care Team (Late st Contact Info) Description 10/08/2023 Orders Only [facility] [address] [place] [address] Mike Edmondson MD [address] [place] [address] Hypo-osmolality and hyponatremia Social History [...] 86 [facility] Anion Gap 12 [facility] Blood specimen (specimen) Venous blood / Unknown 09/23/2023 Mike Edmondson MD LAB BLOOD ORDERABLES Final Resul t [facility] documented in this encounter Visit Diagnoses Diagnosis Hypo-osmolality and hyponatremia documented in this encounter Care Teams Cracker And Cookie Machine Operator Relationship Specialty Start Date End Date Zhane Stanley DO [address] [place] [address] PCP - General Family Medicine 07/27/23 documented as of this encounter
--- OUTSIDE RECORDS SUMMARY | 2024-12-20 17:45 | XMS_ITS | Encounter Summary ---
Author Organization [facility] Address [address] [place] [address] Care Team Providers Care Proposal Lead Writer Name Role Phone Zhane Stanley DO Primary Care Provider [phone] Encounter Details Date Type Department Care Team (Late st Contact Info) Description 10/10/2024 Orders Only [facility] [address] [place] [address] [address] [place] [place] [address] Mike Edmondson MD [address] [place] [address] Chronic kidney disease, stage 2 (mild) Social History Tobacco Use Types Packs/Day Years [...] Associated Diagnosis Comments BASIC METABOLIC PANEL Routine 12/11/2024 8:28 AM CDT BASIC METABOLIC PANEL Routine 09/24/2024 Chronic kidney disease, stage 2 (mild) documented in this encounter Results * (ABNORMAL) Basic Metabolic Panel (12/11/2024 8:28 AM CDT) Glucose 94 65 - 99 mg/dL [facility] Comment: Fasting reference interval BUN 24 7 - 25 mg/dL [facility] [place] Creatinine 1.03 0.70 - 1.30 mg/dL [facility] eGFR CKD-EPI CR 2020 86 > OR = 60 mL/min/1. 73m2 [facility] BUN/Creatinine Ratio SEE NOTE: 6 - 22 (calc) [facility] Comment: Not Reported: BUN and Creatinine are within reference range. Sodium 129(L) 135 - 146 mmol/L [facility] Potassium 5.2 3.5 - 5.3 mmol/L [facility] Chloride 94(L) 98 - 110 mmol/L [facility] [place] Bicarbonate (CO2) 30 20 - 32 mmol/L [facility] [place] Calcium 9.7 8.6 - 10.3 mg/dL [facility] 12/11/2024 8:28 AM CDT 12/11/2024 8:29 AM CDT Narrative Resulting Agency Comment Performing Organization Information: Site ID: [id number] Name: [facility] Address: [address] [place] [id number] Director: Antonio Pat us Mike Edmondson MD LAB BLOOD ORDERABLES Final Resul t [facility] [facility] [place] [address] [address] * (ABNORMAL) Basic metabolic panel (09/24/2024) Sodium 139 mEq/L [facility] Potassium 4.9 mEq/L [facility] Chloride 98 [facility] Carbon Dioxide 29 mmol/L [facility] Calcium 9.6 mg/dL [facility] BUN 28(H) mg/dL [facility] Creatinine 1.18 mg/dL [facility] Glucose 160(H) mg/dL [facility] eGFR 73 [facility] Anion Gap 12 [facility] Blood Venous blood / Unknown 09/24/2024 us Mike Edmondson MD LAB BLOOD ORDERABLES Final Resul t [facility] documented in this encounter Visit Diagnoses Diagnosis Chronic kidney disease, stage 2 (mild) documented in this encounter Care Teams Proposal Lead Writer Relationship Specialty Start Date End Date Zhane Stanley DO [address] [place] [address] PCP - General Family Medicine 07/27/23 documented as of this encounter
--- OUTSIDE RECORDS SUMMARY | 2024-12-20 17:45 | XMS_ITS | Clinical Summary ---
Author Organization [facility] Address [address] [place] [address] Care Team Providers Care Ammonia Still Operator Name Role Phone Glenys Alcantar MD Unavailable [phone] Zhane Stanley DO Primary Care Provider [phone] Samantha Grayson PharmD Unavailable [phone] Mike Edmondson MD Unavailable [phone] Allergies Active Allergy Reactions Criticality Noted Date Comments Aripiprazole 06/09/2008 Tardive dyskinsia Aripiprazole *Unknown Low 12/27/2020 Bupropion Anxiety,Nausea Only Low 04/29/2017 Haloperidol Other - Describe In Comment Field Low 02/13/2007 Tardive dyskinsia Clonazepam Other - Describe In Comment Field 08/11/2021 Neuroleptic shock Nitroglycerin Nausea And Vomiting Medium 04/09/2013 Thiothixene Other - Describe In Comment Field Low 02/13/2007 Tardive dyskinsia Trifluoperazine Tremors,Other - Describe In Comment Field Low 03/15/2009 Confusion, heart palpitations Ziprasidone *Unknown Low 03/15/2009 Tardive dyskinsia Medications milk of magnesia [...] 30 Tablet 021 Active lancets (Accu-Chek Softclix Lancets)Indications :Type 2 [...] 3 023 Active guaiFENesin 100 mg/5 mL liquidIndications:A cute cough Take 5 mL (100 mg) by mouth every 6 hours if needed for Expectoration. Every 4 Hours as needed for cough 118 mL 024 Active calcium carbonate (Calcium Antacid) 200 mg calcium (500 mg) chewable tabletIndications:C hronic GERD CHEW 2-4 TABLETS BY MOUTH BETWEEN MEALS & AT BEDTIME NEEDED (STANDING ORDER) 90 Tablet 3 024 Active Blood-Glucose Meter (True Metrix Glucose Meter) As directed. Ac tive Blood Glucose Control, High (True Metrix Level 3) soln As directed. Active menthol ([place] Cough Drops) 3.2 mg lozg Dissolve 1 [...] topically to affected area(s) twice daily. Active acetaminophen (TYLENOL) 325 mg tablet Take [...] daily if needed for Cough. Active aluminum-magnesium hydroxide-simethico ne (Antacid) 200-200-20 mg/5 mL suspension Take 5-10 mL by mouth 4 times daily if needed for GI Upset. Shake Well. As needed one time between meal and at bedtime Active mineral oil-hydrophil petrolat ointment Apply topically to affected area(s) two times daily. Active polyethylene glycoL (MIRALAX) 17 gram/scoop powderIndications:C hronic constipation Mix 1 scoop (17 g) in liquid then take by mouth once daily if needed for Constipation. 1530 g 3 Active BD AutoShield Duo Pen Needle 30 gauge x 07/08 ndle Active Fiasp FlexTouch U-100 Insulin 100 unit/mL (3 mL) pen Active diphenhydrAMINE (Banophen) 25 mg capsule Take 1 Capsule (25 mg) by mouth every 6 hours if needed (sleep or allergies). Also helps with anxiety Active insulin degludec, U-200, (Tresiba FlexTouch U-200) 200 unit/mL (3 mL) penIndications:Type 2 diabetes mellitus with diabetic polyneuropathy, with long-term current use of insulin (HC) Inject 14 units subcutaneous once daily in the evening. Active white petrolatum (Aquaphor Healing) 41 % ointmentIndications :Xerosis cutis Apply topically to affected area(s) 3 times daily if needed (Dry skin). 396 g 11 Active Ventolin HFA 90 mcg/actuation inhaler 025 Active furosemide 40 mg tablet Take 40 mg by mouth once daily. 025 Active mupirocin 2% ointment 025 Active rosuvastatin 20 mg tabletIndications:H yperlipidemia, unspecified hyperlipidemia type TAKE 1 TABLET BY MOUTH EVERY NIGHT AT BEDTIME 90 Tablet 2 025 Active propranolol ER 60 mg Cs24 Sustained-Release capsule Take 60 mg by mouth once daily. 025 Active sodium chloride 1,000 mg soluble tabletIndications:C hronic hyponatremia TAKE 1 TABLET BY MOUTH TWICE DAILY BEFORE MEALS 56 Tablet 12 025 Active metFORMIN 1,000 mg tabletIndications:T ype 2 diabetes mellitus with diabetic polyneuropathy, with long-term current use of insulin (HC) TAKE 1 TABLET BY MOUTH TWICE DAILY WITH MEAL(S) 180 Tablet Active gabapentin 300 mg capsuleIndications: Diabetic ulcer of toe of right foot associated with type 2 diabetes mellitus, limited to breakdown of skin (HC),Diabetic peripheral neuropathy (HC) TAKE 3 CAPSULES BY MOUTH THREE TIMES DAILY 810 Capsule 1 025 Active nicotine 2 mg lozengeIndications: Tobacco use disorder PLACE 1 LOZENGE BY MOUTH , BETWEEN CHEEK & GUM EVERY 1 HOUR NEEDED WHILE AWAKE FOR CRAVINGS MAX OF 20 PER DAY 72 Lozenge 11 025 Active lisinopriL 10 mg tabletIndications:P ositive for macroalbuminuria,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 (HC) TAKE 1 TABLET BY MOUTH DAILY 90 Tablet 025 Active empagliflozin (Jardiance) 10 mg tabletIndications:T ype 2 diabetes mellitus with diabetic polyneuropathy, with long-term current use of insulin (HC),Positive for macroalbuminuria TAKE 1 TABLET BY MOUTH DAILY 90 Tablet 025 Active blood sugar diagnostic (True Metrix Glucose Test Strip) stripIndications:Ty pe 2 diabetes mellitus with diabetic polyneuropathy, with long-term current use of insulin (HC) TEST BLOOD GLUCOSE THREE TIMES DAILY 300 Each 3 025 Active trihexyphenidyL 2 mg tabletIndications:N euroleptic-induced tardive dyskinesia Take 1 Tablet (2 mg) by mouth two times daily. 60 Tablet 11 025 Active Insulin Safety [place] (Disp) 30 gauge x 1/3Indications:Typ e 2 diabetes mellitus with diabetic polyneuropathy, with long-term current use of insulin (HC) To use with insulin administration Dx E11.42 300 Each 3 025 Active ALPRAZolam (XANAX) 0.25 mg tabletIndications:G eneralized anxiety disorder,Panic disorder without agoraphobia Take half a tablet (0.125 mg) by mouth every evening . Further refills will be prescribed during an appointment 15 Tablet 2 025 Active paliperidone palmitate ER (4 weeks) (INVEGA SUSTENNA) 234 mg/1.5 mL intramuscular syringeIndications: Bipolar I disorder with mood-congruent psychotic features (HC) Inject 234 mg intramuscular every 3 weeks. 1.5 mL 16 025 Active QUEtiapine (SEROQUEL) 200 mg tabletIndications:B ipolar I disorder with mood-congruent psychotic features (HC) Take 1 Tablet (200 mg) by mouth every evening 28 Tablet 025 Active busPIRone (BUSPAR) 30 mg tabletIndications:G eneralized anxiety disorder,Panic disorder without agoraphobia Take 1 Tablet (30 mg) by mouth two times daily. 56 Tablet 025 Active divalproex (DEPAKOTE) 500 mg Delayed-Release tabletIndications:B ipolar I disorder with mood-congruent psychotic features (HC) Take 2 Tablets (1,000 mg) by mouth two times daily. 112 Tablet 025 Active propranolol ER (INDERAL LA) 80 mg Cs24 Sustained-Release capsuleIndications: Generalized anxiety disorder,Panic disorder without agoraphobia,Medicat ion-induced postural tremor Take 1 Capsule (80 mg) by mouth once daily. 30 Capsule 025 Active aspirin enteric coated 81 mg tabletIndications:H TN (hypertension) TAKE 1 TABLET BY MOUTH DAILY WITH A MEAL 90 Tablet 025 Active insulin lispro (U-100) (Admelog SoloStar U-100 Insulin) 100 unit/mLIndications: Type 2 diabetes mellitus with diabetic polyneuropathy, with long-term current use of insulin (HC) Inject 5 units subcutaneous three times daily before meals. Product desired: ADMELOG SOLOSTAR 30 mL 025 Active QUEtiapine (SEROQUEL) 25 mg tabletIndications:B ipolar I disorder with mood-congruent psychotic features (HC),Generalized anxiety disorder,Panic disorder without agoraphobia Take 0.5 tablet (12.5 mg) by mouth 3 times daily if needed for agitation, anxiety. Wait at least 1 hour between doses 30 Tablet 5 025 Active insulin lispro, U-100, (Admelog SoloStar U-100 Insulin) 100 unit/mL inpn penIndications:Type 2 diabetes mellitus with diabetic polyneuropathy, with long-term current use of insulin (HC) Inject 5 units subcutaneous three times daily before meals. Product desired: ADMELOG SOLOSTAR 025 2024 Disconti nued(Reo rder (E-cance l not sent)) QUEtiapine (SEROQUEL) 25 mg tabletIndications:B ipolar I disorder with mood-congruent psychotic features (HC),Generalized anxiety disorder,Panic disorder without agoraphobia Take 1 tablet (25 mg) by mouth 3 times daily if needed for agitation, anxiety. Wait at least 1 hour between doses 90 Tablet 5 025 2024 Disconti nued(*Me dication adjustme nt) Active Problems Problem Noted Date Diagnosed Date Drug-induced parkinsonism 12/10/2024 Iliac artery stenosis, right 03/09/2024 Diabetic foot ulcer associat ed with type 2 diabetes mellitus 03/01/2024 Cellulitis in diabetic foot 03/01/2024 Chronic kidney disease, stage 2 (mild) 4 Overview (03/01/2024): Baseline creatinine approximately 1-1.2 range for several years. Longstanding, documented albuminuria, first identified November 2010 at 39 mg/g (from 7797-8266, values arranged between 80-150 mg/g). Recent values [...] with com plications 07/14/2020 Chest pain 06/18/2020 Hypo-osmolar hyponatremia 06/18/2020 Constipation 05/15/2020 Lactic acidosis 05/12/2020 Failure [...] Encounters Date Type Department Care Team Description 12/13/2024 Telephone [facility] [address] [place] [address] Johan Ye MD Abnormal Lab Results 12/13/2024 Telephone [facility] [address] [place] [address] Zhane Stanley, DO Results 12/12/2024 Telephone [facility] [address] [place] [address] Johan Ye MD Results 12/11/2024 9:45 AM CDT Orders Only [facility] [address] [place] [address] Lab, [facility] 12/10/2024 10:00 AM CDT Office Visit [facility] [address] [place] [address] Johan Ye MD Medication Management 12/10/2024 Travel 11/27/2024 Refill [facility] [address] [place] [address] Zhane Stanley, DO Refill Request (Admelog Solo Inj 100 u/ml) 11/15/2024 Refill [facility] [address] [place] [address] Zhane Stanley Анна, DO Refill Request (Aspirin Enteric Coated) 11/05/2024 10:30 AM CDT Office Visit [facility] [address] [place] [address] Johan Ye MD Follow Up; Medication Management 11/05/2024 Travel 10/18/2024 Refill [facility] [address] [place] [address] Johan Ye MD Refill Request (Propranolol Er) 10/09/2024 Refill [facility] [address] [place] [address] Zhane Stanley, DO Refill Request (AUTOSHIELD MIS DUO) 09/25/2024 Telephone [facility] [address] [place] [address] Johan Ye MD Results 09/24/2024 10:00 AM CDT Office Visit [facility] [address] [place] [address] Johan Ye MD Follow Up; Medication Management 09/24/2024 Travel from Last 3 Months Immunizations Immunization Administration Dates Next Due COVID-19 vaccine (Eqalix-Bio NTech 30mcg/0.3mL) 12YO+ KATHERINE-SUCROSE PF MDV 10/01/2021 COVID-19 vaccine (Eqalix-Bio NTech 30mcg/0.3mL) PF, MDV 09/16/2020,08/26/2020 Hepatitis B [...] Medical History Relation Name Comments Alcoholism Father Depression Father Diabetes Father Heart Disease Father Heart attack a ge 35 Bipolar disorder Mother Pulmonary fibrosis Mother Alcohol/Drug Sister 1 Alcohol [...] Answer Date Recorded PHQ-2 TOTAL SCORE 0 12/10/2024 Social Connections Answer Date Recorded Do you [...] row info)? No 03/01/2024 Interpersonal Safety Abuse - Not on file 03/01/2024 Interpersonal Safety Ambulatory Vulnerability No t on file 03/01/2024 Utilities Answer Date Recorded Do you have trouble paying f or utilities (for example, heat, electricity, water, phone)? 1 03/01/2024 Education Answer Date Recorded What is the highest level of school you have completed or the highest degree you have received? High school graduate 04/15/2022 Sex and Gender Information Value Date Recorded Sex Assigned at Not on file Legal Sex Male 6:52 AM [employer] Gender Identity Not on file Sexual Orientation Not on file Occupation Industry Job Start Date Job End Date unemployed Not on file Not on file Not on file Obstetrics History Last Filed Vital Signs Vital Sign Reading Time Taken Comments Blood Pressure 126/74 12/10/2024 9:50 AM CDT Pulse 88 12/10/2024 9:50 AM CDT Temperature 37.2 C (99 F) 03/03/2024 7:48 AM [employer] Respiratory Rate 16 04/04/2024 2:00 PM [employer] Oxygen Saturation 100% 09/07/2024 10: 25 AM CDT Inhaled Oxygen Concentration - - Weight 88.3 kg (194 lb 11.2 oz) 12/10/2024 9:47 AM CDT Height 180.3 cm (5' 11) 07/24/2024 1:35 PM CDT Body Mass Index 27.16 07/24/2024 1:35 PM CDT Plan of Treatment Upcoming Encounters Date Type Department Care Team (Late st Contact Info) Description 01/08/2025 10:00 AM CDT Office Visit [facility] [address] [place] [address] Johan Ye MD [address] [place] [address] 01/09/2025 9:20 AM CDT Office Visit [facility] [address] [place] [address] Zhane Stanley DO [address] [place] [address] 02/05/2025 10:00 AM CDT Office Visit [facility] [address] [place] [address] Johan Ye MD [address] [place] [address] 03/04/2025 10:00 AM [employer] Office Visit [facility] [address] [place] [address] Johan Ye MD [address] [place] [address] 04/08/2025 10:00 AM [employer] Office Visit [facility] [address] [place] [address] Johan Ye MD [address] [place] [address] 05/06/2025 10:00 AM [employer] Office Visit [facility] [address] [place] [address] Johan Ye MD [address] [place] [address] 06/10/2025 10:00 AM [employer] Office Visit [facility] [address] [place] [address] Johan Ye MD [address] [place] [address] Health Maintenance Due Date Last Done Comments Influenza Vaccine (#1) 2024 , 02/07/2023, 02/02/2022, Additional history exists Low Dose CT (for lung CA) ag e 50-80 03/19/2025 03/19/2024, 02/14/2023, 12/21/2021, Additional history exists BMI (ht and wt on same day) for age 18+ 07/24/2025 07/24/2024, 04/04/2024, 11/14/2023, Additional history exists Fecal testing sDNA-FIT ([place] guard) for age 45-75 09/07/2025 09/07/2022 Tetanus booster 11/03/2025 11/04/2015, 08/24, 11/12/1998 Depression screening for age 12+ 12/10/2025 12/10/2024, 11/05/2024, 09/24/2024, Additional history exists Lipids for age 45-75 12/11/2029 12/11/2024, 11/14/2023, 07/02/2022, Additional history exists HIV for age 15-65 Completed 06/25/2020 Hepatitis C screening for ag e 18-79 Completed 06/25/2020 Hepatitis B series for 19+ Completed 03/02, 08/18/2020, 12/18/2018 Pneumococcal series for age 50+ Completed 3, 10/08/2009 Zoster (shingles) series for age 50+ Completed 06/06/2023, 03/07/2023 COVID-19 vaccine series Completed 01/31/20 24, 08/04/2023, 02/07/2023, Additional history exists Procedures Procedure Name Priority Date/Time Associated Diagnosis Comments CBC WITH AUTO DIFFERENTIAL Routine 12/11/2024 9:33 AM CDT Long-term use of high-risk medication HEMOGLOBIN A1C Routine 12/11/2024 9:33 AM CDT Long-term use of high-risk medication LIPID PANEL W REFLEX MEASURED LDL Routine 12/11/2024 9:33 AM CDT Long-term use of high-risk medication VALPROIC ACID TOTAL Routine 12/11/2024 9 :33 AM CDT Long-term use of high-risk medication HEPATIC FUNCTION PANEL Routine 12/11/2024 9:33 AM CDT Long-term use of high-risk medication CBC WITH AUTO DIFFERENTIAL Routine 12/11/2024 9:33 AM CDT Long-term use of high-risk medication BASIC METABOLIC PANEL Routine 09/24/2024 10:56 AM CDT Psychogenic polydipsia Hypo-osmolar hyponatremia OSMOLALITY,URINE Routine 09/24/2024 10:5 5 AM CDT Psychogenic polydipsia Hypo-osmolar hyponatremia CT CHEST SCREENING LOW DOSE WO CONTRAST Routine 03/19/2024 9:12 AM [employer] Encounter for screening for lung cancer Former smoker SDNA-FIT EXTERNAL (COLOGUARD) Routine 09/07/2022 10:30 AM CDT Screening for colon cancer ANTI HIV 1/2 COLLETTE 06/25/2020 7:57 AM [employer] ANTI HCV COLLETTE 06/25/2020 7:57 AM [employer] from Last 3 Months or Most Recently Relevant to Health Maintenance Results * CBC WITH AUTO DIFFERENTIAL (12/11/2024 9:33 AM CDT) WHITE BLOOD CELL COUNT 4.0 3.8 - 10.8 Thousand/u L 12/12/2024 4:47 AM CDT [facility] RED BLOOD CELL COUNT 4.87 4.20 - 5.80 Million/uL 12/12/2024 4:47 AM CDT [facility] Comment: Specimen was prewarmed to 37 degrees to obtain results. Cold agglutinin/cryoglobulin suspected. HEMOGLOBIN 14.5 13.2 - 17.1 g/dL 12/12/2024 4:47 AM CDT [facility] HEMATOCRIT 44.1 38.5 - 50.0 % 12/12/2024 4:47 AM CDT [facility] MCV 90.6 80.0 - 100.0 fL 12/12/2024 4:47 AM CDT [facility] MCH 29.8 27.0 - 33.0 pg 12/12/2024 4:47 AM CDT [facility] MCHC 32.9 32.0 - 36.0 g/dL 12/12/2024 4:47 AM CDT [facility] Comment: For adults, a slight decrease in the calculated MCHC value (in the range of 30 to 32 g/dL) is most likely not clinically significant; however, it should be interpreted with caution in correlation with other red cell parameters and the patient's clinical condition. RDW 13.9 11.0 - 15.0 % 12/12/2024 4:47 AM CDT [facility] PLATELET COUNT 154 140 - 400 Thousand/u L 12/12/2024 4:47 AM CDT [facility] MPV 9.0 7.5 - 12.5 fL 12/12/2024 4:47 AM CDT [facility] NEUTROPHILS 41 % 12/12/2024 4:47 AM CDT [facility] LYMPHOCYTES 39.0 % 12/12/2024 4:47 AM CDT [facility] MONOCYTES 17.0 % 12/12/2024 4:47 AM CDT [facility] EOSINOPHILS 2.5 % 12/12/2024 4:47 AM CDT [facility] BASOPHILS 0.5 % 12/12/2024 4:47 AM CDT [facility] ABSOLUTE NEUTROPHILS 1640 1500 - 7800 cells/uL 12/12/2024 4:47 AM CDT [facility] ABSOLUTE LYMPHOCYTES 1560 850 - 3900 cells/uL 12/12/2024 4:47 AM CDT [facility] ABSOLUTE MONOCYTES 680 200 - 950 cells/uL 12/12/2024 4:47 AM CDT [facility] ABSOLUTE EOSINOPHILS 100 15 - 500 cells/uL 12/12/2024 4:47 AM CDT [facility] ABSOLUTE BASOPHILS 20 0 - 200 cells/uL 12/12/2024 4:47 AM CDT [facility] Blood BLOOD SPECIMEN / Unknown [facility] / Unknown 12/11/2024 9:33 AM CDT 12/11/2024 9:33 AM CDT us Johan Ye MD HEMATOLOGY Final Result Performing Organization Address [facility] Co de Phone Number [facility] [address] [address], * (ABNORMAL) HEMOGLOBIN A1C (12/11/2024 9:33 AM CDT) HEMOGLOBIN A1C 7.3(H) <5.7 % 12/12/2024 7:33 AM CDT [facility] Comment: For someone without known diabetes, a hemoglobin A1c value of 6.5% or greater indicates that they may have diabetes and this should be confirmed with a follow-up test. For someone with known diabetes, a value <7% indicates that their diabetes is well controlled and a value greater than or equal to 7% indicates suboptimal control. A1c targets should be individualized based on duration of diabetes, age, comorbid conditions, and other considerations. Currently, no consensus exists regarding use of hemoglobin A1c for diagnosis of diabetes for children. Blood BLOOD SPECIMEN / Unknown [facility] / Unknown 12/11/2024 9:33 AM CDT 12/11/2024 9:33 AM CDT us Johan Ye MD CHEMISTRY Final Result Performing Organization Address [facility] de Phone Number [facility] [address] [address], * LIPID PANEL W REFLEX MEASURED LDL (12/11/2024 9:33 AM CDT) CHOLESTEROL, TOTAL 104 <200 mg/dL 12/12/2024 5:02 AM CDT [facility] TRIGLYCERIDES 114 <150 mg/dL 12/12/2024 5:02 AM CDT [facility] HDL CHOLESTEROL 50 > OR = 40 mg/dL 12/12/2024 5:02 AM CDT [facility] NON HDL CHOLESTEROL 54 <130 mg/dL (calc) 12/12/2024 5:02 AM CDT [facility] Comment: For patients with diabetes plus 1 major ASCVD risk factor, treating to a non-HDL-C goal of <100 mg/dL (LDL-C of <70 mg/dL) is considered a therapeutic option. CHOL/HDLC RATIO 2.1 <5.0 (calc) 12/12/2024 5:02 AM CDT [facility] LDL-CHOLESTEROL 34 mg/dL (calc) 12/12/2024 5:02 AM CDT [facility] Comment: Reference range: <100 Desirable range <100 mg/dL for primary prevention; <70 mg/dL for patients with CHD or diabetic patients with > or = 2 CHD risk factors. LDL-C is now calculated using the Rosi calculation, which is a validated novel method providing better accuracy than the Friedewald equation in the estimation of LDL-C. [place] GARCIA et al. KIMMY. 2013;310(39): 2476-7868 (http://education.Albiorex/faq/CUT590) Blood BLOOD SPECIMEN / Unknown [facility] / Unknown 12/11/2024 9:33 AM CDT 12/11/2024 9:33 AM CDT us Johan Ye MD CHEMISTRY Final Result Performing Organization Address [facility]/ZIP Co de Phone Number [facility] [address] [address], * VALPROIC ACID TOTAL (12/11/2024 9:33 AM CDT) VALPROIC ACID 81.9 50.0 - 100.0 mg/L 12/12/2024 11:23 AM CDT [facility] Blood BLOOD SPECIMEN / Unknown [facility] / Unknown 12/11/2024 9:33 AM CDT 12/11/2024 9:33 AM CDT us Johan Ye MD CHEMISTRY Final Result Performing Organization Address [facility]/ZIP Co de Phone Number [facility] [address] [address], [place] [phone] * HEPATIC FUNCTION PANEL (12/11/2024 9:33 AM CDT) ALBUMIN 4.3 3.6 - 5.1 g/dL 12/12/2024 5:02 AM CDT [facility] PROTEIN, TOTAL 7.3 6.1 - 8.1 g/dL 12/12/2024 5:02 AM CDT [facility] BILIRUBIN, TOTAL 0.4 0.2 - 1.2 mg/dL 12/12/2024 5:02 AM CDT [facility] BILIRUBIN, DIRECT 0.1 < OR = 0.2 mg/dL 12/12/2024 5:02 AM CDT [facility] BILIRUBIN, INDIRECT 0.3 0.2 - 1.2 mg/dL (calc) 12/12/2024 5:02 AM CDT [facility] ALKALINE PHOSPHATASE 58 35 - 144 U/L 12/12/2024 5:02 AM CDT [facility] ALT 14 9 - 46 U/L 12/12/2024 5:02 AM CDT [facility] AST 27 10 - 35 U/L 12/12/2024 5:02 AM CDT [facility] GLOBULIN 3.0 1.9 - 3.7 g/dL (calc) 12/12/2024 5:02 AM CDT [facility] ALBUMIN/GLOBULIN RATIO 1.4 1.0 - 2.5 (calc) 12/12/2024 5:02 AM CDT [facility] Blood BLOOD SPECIMEN / Unknown [facility] / Unknown 12/11/2024 9:33 AM CDT 12/11/2024 9:33 AM CDT Johan Ye MD CHEMISTRY Final Result [facility] [id number] [place] [address], [place] [phone] * (ABNORMAL) BASIC METABOLIC PANEL (09/24/2024 10:56 AM CDT) GLUCOSE 160(H) 65 - 99 mg/dL [facility] Comment: Fasting reference interval For someone without known diabetes, a glucose value >125 mg/dL indicates that they may have diabetes and this should be confirmed with a follow-up test. UREA NITROGEN (BUN) 28(H) 7 - 25 mg/dL [facility] CREATININE 1.18 0.70 - 1.30 mg/dL [facility] EGFR 73 > OR = 60 mL/min/1.7 3m2 [facility] BUN/CREATININE RATIO 24(H) 6 - 22 (calc) [facility] SODIUM 139 135 - 146 mmol/L [facility] POTASSIUM 4.9 3.5 - 5.3 mmol/L [facility] CHLORIDE 98 98 - 110 mmol/L [facility] CARBON DIOXIDE 29 20 - 32 mmol/L [facility] ELECTROLYTE BALANCE 12 7 - 17 mmol/L (calc) [facility] CALCIUM 9.6 8.6 - 10.3 mg/dL [facility] Blood BLOOD SPECIMEN / Unknown 09/24/2024 10:56 AM CDT 09/24/2024 11:00 AM CDT Johan Ye MD CHEMISTRY Final Result [facility] [address] [address], [place] [phone] [address] * OSMOLALITY,URINE (09/24/2024 10:55 AM CDT) OSMOLALITY,URI NE 317 50 - 1,400 mOsmol/kg 09/24/2024 3:33 PM CDT [facility] Urine URINE SPECIMEN / Unknown Non-Blood / Unknown 09/24/2024 10:55 AM CDT 09/24/2024 10:55 AM CDT us Johan Ye MD URINE Final Result [facility] [address] [place] [address], * CT CHEST SCREENING LOW DOSE WO CONTRAST (03/19/2024 9:12 AM [employer]) Anatomical Region Laterality Modality Computed Tomogra phy Impressions 03/21/2024 9:58 AM [employer] Stable study, Lung-RADS category 1 - Negative [...] 3:22:24 PM /sp Narrative 03/21/2024 9:58 AM [employer] For Patients: As a result of the [...] spine. Soft tissues are unremarkable. Zhane Анна Jaden DO CT Final Result * SDNA-FIT EXTERNAL (COLOGUARD) (09/07/2022 10:30 AM CDT) NONINV COLON CA DNA+OCC BLD SCRN STL-IMP Negative Negative 09/12/2022 4:39 PM CDT [facility] (CLIA #:[id number]) Comment: NEGATIVE TEST RESULT. A negative Cologuard [...] (Oscar Clifford al, N Engl J Med 2014;370(14):2033-6379) The normal value (reference range) for this assay is negative. COLOGUARD RE-SCREENING RECOMMENDATION: Periodic colorectal cancer screening is an important part of preventive healthcare for asymptomatic individuals at average risk for colorectal cancer. Following a negative Cologuard result, the [employer] [employer] Society and U.S. Multi-Society Task Force screening guidelines recommend a Cologuard re-screening interval of 3 years. References: [employer] [employer] Guideline for Colorectal Cancer Screening: https://www.cancer.org/cancer/lgfdh-cqjhsw-ewnvks/ncocxcwsd-eyoqllfvo-fbukxsm/ac s-rec ommendations.html.; Rob DK, Dory GOMEZ, Juan Luis JuárezK, Colorectal Cancer Screening: Recommendations for Physicians and Patients from the U.S. Multi-Society Task Force on Colorectal Cancer Screening , Am J Gastroenterology 2017; 112:9417-2802. TEST DESCRIPTION: Composite algorithmic analysis of stool [...] (Oscar Clifford al, N Engl J Med 2014;370(14):9745-1615.) Cologuard may produce a false negative or false positive result (no colorectal cancer or precancerous polyp present at colonoscopy follow up). A negative Cologuard test result does not guarantee the absence of CRC or advanced adenoma (pre-cancer). The current Cologuard screening interval is every 3 years. ([place] [employer] Society and U.S. Multi-Society Task Force). Cologuard performance data in a 10,000 patient pivotal study using colonoscopy as the reference method can be accessed at the following location: www.[email or web address]/results. Additional description of the Cologuard test process, warnings and precautions can be found at www.cologuard.com. Stool specimen (specimen) (Rectum) 09/07/2022 10:30 AM CDT 09/08/2022 2:42 PM CDT us Zhane Stanley DO URINE Final Result [facility] (CLIA #:[id number]) [place] [address], * ANTI HCV (06/25/2020 7:57 AM FISHER DIVING) HEPATITIS C ANTIBODY Non-React adithya Non-React adithya 06/25/2020 3:43 PM [facility] Comment:Antibodies to HCV no t detected; does not exclude the possibility of exposure to HCV. Blood BLOOD SPECIMEN / Unknown Butterfly / Unknown 06/25/2020 7:57 AM FISHER DIVING 06/25/2020 8:25 AM FISHER DIVING Brandan Woodard MD SEND OUTS Final Res ult [facility] [address] [place] [address], [place] * ANTI HIV 1/2 (06/25/2020 7:57 AM FISHER DIVING) HIV-1/HIV-2 ANTIBODY Non-Reacti ve Non-Reacti ve 06/25/2020 3:44 PM [facility]ER DIVING [facility] Comment:HIV-1 p24 and HIV-1/ HIV-2 Ab not detected. Blood BLOOD SPECIMEN / Unknown Butterfly / Unknown 06/25/2020 7:57 AM FISHER DIVING 06/25/2020 8:25 AM FISHER DIVING us Brandan Woodard MD SEND OUTS Final Res ult [facility] 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
--- OUTSIDE RECORDS SUMMARY | 2024-12-20 17:45 | XMS_ITS | Clinical Summary ---
Author Organization [facility] Address [address] [address] Care Team Providers Care Psychiatric Aide Name Role Phone Needs Pcp, Assignment Primary Care Provider [phone] Source Comments You are receiving this document [...] for each transition of care or referral. [facility] Allergies Active Allergy Reactions Criticality Noted Date Comments Aripiprazole 03/07/2013 permanent shaking in left arm Gabapentin 06/29/2016 Suicidal thoughts Other reaction(s): Other - Describe In Comment Field Suicidal ideation Haloperidol Shock 07/10/2002 Nitroglycerin Nausea And Vomiting 01/10/2014 Thiothixene (Tiotixene) Other, see comments 07/10/2002 Muscle spasm Trifluoperazine 03/15/2009 Confusion, heart palpitations Bupropion Anxiety 04/29/2017 Ziprasidone 03/15/2009 Tardive dyskinsia Medications aspirin 81 MG chewable tablet TAKE 1 TABLET BY MOUTH DAILY . 100 tablet 1 08/13/19 12 Active ONE TOUCH ULTRA 2 meterIndications:U ncontrolled type 2 diabetes mellitus with diabetic polyneuropathy, with long-term current use of insulin Use to test 4 times a day. 1 Each 0 06/09/19 17 Active ONETOUCH ULTRA CONTROL solutionIndication s:Uncontrolled type 2 diabetes mellitus with diabetic polyneuropathy, with long-term current use of insulin Use to test as needed. 1 Each 06/09/19 17 Active multivitamin (THERAGRAN) tablet Take 1 Tablet by mouth. Active divalproex (DEPAKOTE DR) 250 MG enteric coated tablet Take 1,000 mg by mouth two times a day. Active levOCARNitine (CARNITOR) 330 MG tablet TK 3 TS PO QD 5 03/06/20 19 Active atorvastatin (LIPITOR) 80 MG tabletIndications: ASHD (arteriosclerotic heart disease) (HRC),Hyperlipidem ia with target LDL less than 70 (HRC) Take 1 tablet by mouth once daily 90 Tablet 3 08/10/19 20 Active Additional Information Patient not taking.Reported on 08/28/2019 glucose 4 gram chewable tabletIndications: Hypoglycemia (HRC) Chew and swallow 4 Tablets by mouth once as needed (Blood sugar less than 70). 30 Tablet 1 10/05/19 20 Active insulin degludec 200 UNIT/ML SOPNIndications:Un controlled type 2 diabetes mellitus with hyperglycemia (HRC) Inject 32 Units subcutaneously daily. 12 mL 10/08/19 20 Active amLODIPine (NORVASC) 10 MG tabletIndications: Essential hypertension (HRC) Take 1 Tablet by mouth daily. 90 Tablet 3 12/04/19 20 Active Continuous Blood Gluc Sensor (FREESTYLE TALAT 14 DAY SENSOR) MISCIndications:Un controlled type 2 diabetes mellitus with hyperglycemia (HRC) Use as directed. Change every 14 days. 6 Each 4 12/04/19 20 Active Continuous Blood Gluc Braider Setter (FREESTYLE TALAT 2 READER SYSTM) DEVIIndications:Un controlled type 2 diabetes mellitus with hyperglycemia (HRC) Use to scan blood sugars per juice bar team member instructions. 1 Each 12/04/19 20 Active metFORMIN (GLUCOPHAGE) 500 MG tablet Take 2 Tablets by mouth two times a day with meals. 360 Tablet 3 01/09/20 20 Active busPIRone (BUSPAR) 10 MG tabletIndications: Anxiety (HRC) Take 3 Tablets by mouth two times a day for 30 days. 360 Tablet 3 01/22/20 20 Active QUEtiapine (SEROQUEL) 200 MG tablet TAKE ONE TABLET BY MOUTH AT BEDTIME 30 Tablet 1 03/02/20 20 Active ONETOUCH DELICA lancetsIndications :Uncontrolled type 2 diabetes mellitus with diabetic polyneuropathy, with long-term current use of insulin Use 1 Each to test three times a day. 300 Each 3 04/01/20 20 Active blood glucose (ONE TOUCH ULTRA BLUE) test stripIndications:U ncontrolled type 2 diabetes mellitus with microalbuminuria, with long-term current use of insulin Use 1 Each to test three times a day. Pharmacy dispense brand based on insurance. ICD-10: E11.29, E11.65, R80.9, Z79.4 300 Strip 3 04/01/20 20 Active divalproex (DEPAKOTE ER) 500 MG 24 hour release tablet Take 2 Tablets by mouth two times a day. 120 Tablet 05/09/19 21 Active insulin regular (NOVOLIN R) 100 UNIT/ML injectionIndicatio ns:Uncontrolled type 2 diabetes mellitus with complication, with long-term current use of insulin Inject 2 units per 15 grams of carb before meals, at least 6 hours apart.Add Sliding Scale +1 unit/50 >150.max is 30 units daily. 10 mL 11 06/07/19 21 Active Insulin Syringe-Needle U-100 (INSULIN SYRINGE 31G X 5/16) 31G X 5/16 1 MLIndications:Unco ntrolled type 2 diabetes mellitus with complication, with long-term current use of insulin Inject 1 Each subcutaneously 4 times a day. 400 Each 3 06/07/19 21 Active benztropine (COGENTIN) 0.5 MG tabletIndications: Drug-induced extrapyramidal movement disorder (HRC) Take 1 Tablet by mouth two times a day for 30 days. 60 Tablet 2 06/09/19 21 Active insulin degludec 200 UNIT/ML SOPNIndications:Un controlled type 2 diabetes mellitus with hyperglycemia (HRC) Inject 32 Units subcutaneously daily. 18 mL 06/18/19 21 Active insulin aspart (NOVOLOG) 100 UNIT/ML pen injectionIndicatio ns:Uncontrolled type 2 diabetes mellitus with hyperglycemia (HRC) Inject 5-10 Units subcutaneously three times daily before meals. 45 mL 1 07/12/19 21 Active metoprolol succinate (TOPROL XL) 50 MG 24 hour release tabletIndications: Essential hypertension (HRC) TAKE 1 TABLET BY MOUTH DAILY 90 Tablet 3 09/03/19 21 Active risperiDONE (RISPERDAL) 3 MG tablet TAKE 1 TABLET BY MOUTH TWICE DAILY 60 Tablet 1 09/07/19 Active NOVOFINE 30 30G X 8 MM USE DIRECTED WITH INSULIN PENS 400 Each 3 09/05/19 Active risperiDONE (RISPERDAL) 3 MG tablet Take 1 Tablet by mouth two times a day. 180 Tablet 09/05/19 Active Active Problems Patient Care Coordination No te Formatting of this note migh t be different from the original. [employer]: Lesly Rodrigues [facility] Yaritza [phone] Care coordination focus: T2DM, financial resources Living situation: lives with spouse Important notes: SSDI, significant insulin resistance, regularly reaches Medicare Coverage Gap and cannot afford insulin Problem Noted Date Diagnosed Date Non-proliferative diabetic retinopathy 0 Hyponatremia 01/16/2018 Tinea versicolor 07/18/2015 Tobacco use disorder 10/26/2012 Anemia 05/02/2012 Overview (12/15/2016): Anemia, unspecified Microalbuminuria 02/04/2012 VT, old 09/16/2011 History of PTCA 09/16/2011 Overview [...] I disorder 09/15/2005 Overview (12/15/2016): LW Onset: [id number] ; Bipolar I Dis Resolved Problems Problem Noted Date Diagnosed Date Resolved Date Tobacco abuse 02/24/2016 12/18/2018 ACS (acute coronary syndrome) 10/25/2012 02/16/2017 Mass on back 05/02/2012 10/25/2012 Health fpc, active care coordination 03/22/2012 07/27/2018 Overview (11/26/2015): [employer]: JOSETTE Yip [phone] Care coordination focus: T2DM, financial resources Living situation: lives with spouse Important notes: SSDI, significant insulin resistance, uses Relion insulin, commonly reaches Medicare Coverage Gap See care plan under Chart Review > Misc Reports > AMB H CARE PLAN REPORT Assessment & Plan (09/01/2017 11:39 AM CDT): [employer]: ERLIN Salas [phone] Care coordination focus: mental health Living situation: Lives with Important notes: mh case management starting LFTs abnormal 02/02/2012 10/25/2012 S/P angioplasty with stent 05/26/2011 0 10/25/2012 Overview (11/26/2015): Apr 2011 Plantar wart 05/26/2011 10/25/2012 Acute VT 05/01/2011 02/01/2012 Hypertriglyceridemia 12/11/2010 013 Overview (11/26/2015): >5000 Disorder of lipoid metabolism 12/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 10/25/2012 Overview (12/15/2016): Dyslipidemia Painful respiration 12/22/2009 10/26/19 13 Overview (12/15/2016): Pain Chest Wall Tobacco use disorder 09/29/2002 012 Overview (12/15/2016): quit Apr 29, 2011 ; Tobacco Abuse Immunizations Immunization Administration Dates Next Due Flu Vac (3+ yrs) 02/01/2012,01/26/2011 Flu Vac Preserv Free (3+yrs) 02/01/2012, 01/22/2011,03/17/2009,2006,03/23/2006,05/19/2005 HepB Adult (Engerix-B, 20+ y rs, 3 dose series) 12/18/2018 Influenza (Fluzone 0.25, 6-35 mos) 03/14/2013 Influenza IIV4 (Quadrivalent ) 0.5mL (69436) 01/07/2020,01/16/2018,02/16/2017,2015,03/27/2015,01/16/2014,03/14/2013 Influenza, Unspecified Formulation 08/23,03/14/2013,03/17/2009,2006,03/23/2006,05/19/2005,03/12/2002 PPSV23 (Pneumovax) 10/08/2009 TB Skin Test (PPD) 06/11/2019,02/05/2016, 016 TDAP (ADACEL) 09/15/2005 TDAP (BOOSTRIX) 11/04/2015 Td 11/12/1998 Social History Tobacco Use Types Packs/Day Years Used Date Smoking Tobacco: Every Day Cigarettes 1 40.6 Started: 05/17/1984 Smokeless Tobacco: Former Quit: 10/25/2012 Tobacco Cessation:Counseling Given: No Comments:about 2 cigarettes at most Alcohol Use Standard Drinks/Week Comments No 0 (1 standard drink = 0.6 oz pure alcohol) Alcoholic Drinks/day: Amount:0; Freq:Never; PHQ-2 Answer Date Recorded PHQ-2 Score 1 12/04/2019 Sex and Gender Information Value Date Recorded Sex Assigned at Not on file Legal Sex Male 11:09 AM CDT Gender Identity Not on file Sexual Orientation Not on file Occupation Industry Job Start Date Job End Date Not on file Not on file Not on file Not on file Last Filed Vital Signs Vital Sign Reading Time Taken Comments Blood Pressure 132/88 06/09/2020 4:43 PM HEAD TRANSFER CLERK Pulse 99 06/09/2020 4:43 PM HEAD TRANSFER CLERK Temperature 38.2 C (100.8 F) 05/02/2019 11:31 AM HEAD TRANSFER CLERK Respiratory Rate 16 03/07/2013 2:52 PM HEAD TRANSFER CLERK Oxygen Saturation 97% 10/27/2012 3:52 PM CDT Inhaled Oxygen Concentration - - Weight 88.9 kg (196 lb) 06/09/2020 4:43 PM HEAD TRANSFER CLERK Height 177.8 cm (5' 10) 12/04/2019 10:49 AM CDT Body Mass Index 28.12 12/04/2019 10:49 AM CDT Plan of Treatment Health Maintenance Due Date Last Done Comments Colon Cancer Screening Plan Due 1970 PSA Screening Discussion 1970 Pneumococcal Vaccine 50+ Yrs (2 of 2 - PCV) 10/08/2010 10/08/2009 HepB Vaccine (2) 01/15/2019 12/18/2018 Diabetes: Foot Exam 07/28/2019 07/27/2018 ( Completed), 07/19/2016 Zoster/Shingles Vaccine (1 of 2) 01/22/2020 Diabetes: Albumin/Creatinine Ratio, Urine 12/03/2020 12/04/2019, 08/28/2019, 08/15/2017, Additional history exists Diabetes: Creatinine 12/03/2020 12/04/2019, 08/28/2019, 11/28/2018, Additional history exists Diabetes: Eye Exam 02/01/2021 02/02/2020 (C ompleted), 07/25/2017 (Completed), 06/28/2016 (Completed), Additional history exists Medicare Annual Wellness Visit 07/04/2021 07/04/2020, 12/04/2019 Diabetes: HGBA1C 02/10/2022 08/11/2021, , 01/07/2021, Additional history exists COVID-19 Vaccine ( season) 2023 09/16/2020, 08/26/2020 Diabetes: Lipid Panel 12/03/2024 12/04/2019 , 08/15/2017, 02/16/2017, Additional history exists Influenza Vaccine (#1) 2024 0, 01/16/2018, 02/16/2017, Additional history exists DTaP/Tdap/Td Vaccine (3 - Tdap) 11/03/2025 11/04/2015, 09/15/2005, 11/12/1998 Hep C Screening (Preventive Services) Completed 03/12/2002 HIV Screening (Preventive Services) Completed 06/25/2020, 03/12/2002 HepA Vaccine Aged Out No longer eligi ble based on patient's age to complete this topic Hib Vaccine Aged Out No longer eligi ble based on patient's age to complete this topic IPV (Polio) Vaccine Aged Out No longe r eligible based on patient's age to complete this topic MCV4 Vaccine Aged Out No longer eligi ble based on patient's age to complete this topic Meningococcal B Vaccine Aged Out No l onger eligible based on patient's age to complete this [...] (HRC) HIV ANTIBODY Routine 03/12/2002 12:48 PM HEAD TRANSFER CLERK HEPATITIS C ANTIBODY, WITH REFLEX (ANTI-HCV) Routine 03/12/2002 12:48 PM HEAD TRANSFER CLERK from Last 3 Months or Most Recently Relevant to Health Maintenance Results * (ABNORMAL) Microalb/Creat Ratio - in 3 months (12/04/2019 10:10 AM CDT) Albumin, Urine, Random 351.2 mg/L 12/04/2019 3:54 PM CDT [facility] Creatinine, Urine, Random 106 >20 mg/dL 12/04/2019 3:54 PM CDT [facility] Albumin/Creati nine Ratio, Urine, Random 331(H) <30 mg/g 12/04/2019 3:54 PM CDT [facility] Urine Non-blood Collection / Unknown 12/04/2019 10:10 AM CDT 12/04/2019 10:10 AM CDT us Gagandeep Hinojosa MD LAB_1 Final Resul t [facility] [address] [place] [address], [facility] [phone] * (ABNORMAL) POCT Glycosylated Hemoglobin (HB A1C) - in 3 months (12/04/2019 10:06 AM CDT) Hemoglobin A1C (Rapid) 11.3(H) <=5.6 % 12/04/2019 10:15 AM CDT [facility] Blood Venipuncture / Unknown 12/04/2019 10:06 AM CDT 12/04/2019 10:06 AM CDT Narrative [facility] - 12/04/2019 10:15 AM CDT This Rapid A1c test is designed for monitoring patients with an established diagnosis of diabetes mellitus. This rapid method is not suitable to establish the initial diagnosis of diabetes mellitus. Performed using Point of Care Instrumentation. Gagandeep Hinojosa MD LAB_1 Final Resul t Performing Organization Address [facility] de Phone Number [facility] [address] [place] [address], [place] [phone] * (ABNORMAL) Lipid Panel and Direct LDL(If Needed) - in 3 months (12/04/2019 10:06 AM CDT) Cholesterol 116 0 - 199 mg/dL 12/04/2019 4:03 PM T [facility] Triglyceride 137 <=149 mg/dL 12/04/2019 4:03 PM [facility] HDL Cholesterol 35(L) >=40 mg/dL 0 4:03 PM [facility] LDL, Calculated 54 <130 mg/dL 0 4:03 PM [facility] Non HDL Chol, Calculated 81 mg/dL 12/04/2019 4:03 PM [facility] Cholesterol/HDL Ratio 3.3 12/04/2019 4:03 PM [facility] Hours Fasting 12 12/04/2019 4:03 PM [facility] Blood Venipuncture / Unknown 12/04/2019 10:06 AM CDT 12/04/2019 10:06 AM CDT Gagandeep Hinojosa MD LAB_1 Final Resul t Performing Organization Address City/[facility] [[email or web address]] Co de Phone Number [facility] [address] [place] [address], [place] [phone] [facility] [address] [place] [address], [facility] [phone] * Creatinine / GFR - in 3 months (12/04/2019 10:06 AM CDT) Creatinine 0.80 0.73 - 1.18 mg/dL 12/04/2019 4:03 PM T [facility] GFR, Estimated >60 >60 mL/min/1.7 3m2 12/04/2019 4:03 PM CDT [facility] Blood Venipuncture / Unknown 12/04/2019 10:06 AM CDT 12/04/2019 10:06 AM CDT Gagandeep Hinojosa MD LAB_1 Final Resul t Performing Organization Address City/[facility]/ZIP Co de Phone Number [facility] [address] [place] [address], [facility] [phone] * HIV Antibody (03/12/2002 12:48 PM HEAD TRANSFER CLERK) HIV 1/HIV 2 Non Reac Non Reac HP CONVERSION 03/12/2002 12:4 8 PM HEAD TRANSFER CLERK Antonio Jerez MD LAB_1 Final Resu lt Performing Organization Address [facility] [[email or web address]] Co de Phone Number HP CONVERSION * Hepatitis C Antibody, with Reflex (03/12/2002 12:48 PM HEAD TRANSFER CLERK) Hepatitis C Antibody Non Reac Non Reac HP CONVERSION 03/12/2002 12:4 8 PM HEAD TRANSFER CLERK Antonio Jerez MD LAB_1 Final Resu lt Performing Organization Address City/[facility] [[email or web address]] Co de Phone Number HP CONVERSION from Last 3 Months or Most Recently Relevant to Health Maintenance Insurance [place]IC[place] [address] [place] [address] SERVICES Advance Directives * Full Code (Latest Code Status on File) Date Activated Date Inactivated Comments 10/25/2012 7:32 PM 10/27/2012 6:54 PM * Full Code Date Activated Date Inactivated Comments 05/14/2011 11:08 AM 05/14/2011 11:30 PM * Full Code Date Activated Date Inactivated Comments 04/30/2011 4:27 AM 05/01/2011 12:21 PM Care Teams Psychiatric Aide Relationship Specialty Start Date End Date Needs Pcp, [place] [address] PCP - General 01/24/24 Vane Zarate Psychiatrist Psychiatry 03/22/12 [facility] Psychotherapist 08/04/17 [facility] Agronomist 09/13/17
--- OUTSIDE RECORDS SUMMARY | 2024-12-20 17:45 | XMS_ITS | Encounter Summary ---
Author Organization [facility] Address [address] [place] [address] Care Team Providers Care Lighter Name Role Phone Zhane Stanley DO Primary Care Provider [phone] Encounter Details Date Type Department Care Team (Late st Contact Info) Description 06/05/2024 Orders Only [facility] [address] [place] [address] [address] [place] [address] Mike Edmondson MD [address] [place] [address] Hypo-osmolality and hyponatremia Social History [...] documented as of this encounter Progress Notes * Mike Edmondson MD - 06/05/2024 11:59 PM CST Patient with chronic hyponatremia. This is baseline for him. No further recommendations. We will follow-up with him as already scheduled on 12 June. documented in this encounter Plan of Treatment Not on file documented as of this encounter Procedures Procedure Name Priority Date/Time Associated Diagnosis Comments BASIC METABOLIC PANEL Routine 05/21/2024 Hypo-osmolality and hyponatremia documented in this encounter Results * (ABNORMAL) Basic Metabolic Panel (05/21/2024) Sodium 127(L) mEq/L [facility] Potassium 5.3 mEq/L [facility] Chloride 95(L) [facility] Carbon Dioxide 23 mmol/L [facility] Calcium 8.5(L) mg/dL [facility] BUN 24 mg/dL [facility] Creatinine 1.04 mg/dL [facility] Glucose 97 mg/dL [facility] eGFR 85 [facility] Anion Gap 9 [facility] Blood specimen (specimen) Venous blood / Unknown 05/21/2024 us Mike Edmondson MD LAB BLOOD ORDERABLES Final Resul t [facility] documented in this encounter Visit Diagnoses Diagnosis Hypo-osmolality and hyponatremia documented in this encounter Care Teams Lighter Relationship Specialty Start Date End Date Zhane Stanley DO [address] [place] [address] PCP - General Family Medicine 07/27/23 documented as of this encounter
--- OUTSIDE RECORDS SUMMARY | 2024-12-20 17:45 | XMS_ITS | Clinical Summary ---
Author Organization [facility] Address [address] [place] [address] Phone Care Team Providers Care Core Worker Name Role Phone Zhane Stanley DO Primary Care Provider [phone] Allergies Active Allergy Reactions Criticality Noted Date Comments Aripiprazole 06/09/2008 Tardive dyskinsia Bupropion Anxiety,Nausea Low 04/29/2017 Clonazepam Other (see comments) 08/11/2021 Neuroleptic shock Haloperidol 02/13/2007 Tardive dyskinsia Nitroglycerin Nausea And Vomiting Medium 04/09/2013 Thiothixene 02/13/2007 Tardive dyskinsia Trifluoperazine Other (see comments) 03/15/2009 Confusion, heart palpitations Ziprasidone Other (see comments) 03/15/2009 Tardive dyskinsia Medications metFORMIN (GLUCOPHAGE) 1000 MG tablet Take 1,000 mg by mouth in the morning and 1,000 mg in the evening. Take with meals. 07/29/19 24 Active gabapentin (NEURONTIN) 300 MG capsule Take 900 mg by mouth in the morning and 900 mg in the evening and 900 mg before bedtime. 04/06/20 23 Active insulin degludec (TRESIBA FLEX TOUCH) 200 UNIT/ML injection Inject 14 Units under the skin every night 05/08/19 24 Active magnesium hydroxide (MILK OF MAGNESIA) 400 MG/5ML suspension Take 15-30 mL by mouth 1 (one) time each day if needed Active QUEtiapine (SEROquel) 200 MG tablet Take 200 mg by mouth every night 03/02/20 20 Active polyethylene glycol (GLYCOLAX) 17 GM/SCOOP powder Take 17 g by mouth 1 (one) time each day if needed (constipation) 05/24/19 23 Active rosuvastatin (CRESTOR) 20 MG tablet [...] 20 DOSES PER DAY* 09/18/19 23 Active acetaminophen (TYLENOL) 325 MG tablet Take [...] mg in the evening. 12/14/19 23 Active lisinopril 10 MG tablet Take 10 mg by mouth in the morning. 10/11/19 24 Active Ventolin HFA 108 (90 Base) MCG/ACT inhaler 05/10/19 25 Active ALPRAZolam (XANAX) 0.25 MG tablet Take 1 tablet (0.25 mg) every morning AND 1 tablet (0.25 mg) every evening. Further refills will be prescribed during an appointment 06/05/19 25 Active Insulin Lispro, 1 Unit Dial, 100 UNIT/ML solution pen-injector Inject 5 Units under the skin in the morning and 5 Units at noon and 5 Units in the evening. 05/07/19 25 Active Paliperidone Palmitate ER 234 MG/1.5ML suspension prefilled syringe Inject 234 mg into the shoulder, thigh, or buttocks every 21 (twenty-one) days 03/09/20 24 Active QUEtiapine (SEROquel) 25 MG tablet Take 1 tablet (25 mg) by mouth 3 times daily if needed for agitation, anxiety. Wait at least 1 hour between doses 05/21/19 25 Active sodium chloride 1 g tabletIndicati ons:Chronic kidney disease, stage 2 (mild) Take 1 tablet (1 g total) by mouth in the morning and 1 tablet (1 g total) in the evening. Take before meals. 60 tablet 2 06/12/19 25 Active furosemide (LASIX) 40 MG tablet TAKE 1 TABLET BY MOUTH DAILY 28 tablet 12 09/25/19 25 Active propranolol LA (INDERAL LA) 80 MG 24 hr capsule Take 80 mg by mouth in the morning. 11/06/19 25 Active trihexyphenidy l (ARTANE) 2 MG tablet Take 2 mg by mouth in the morning and 2 mg in the evening. 09/25/19 25 Active chlorhexidine (PERIDEX) 0.12 % solution Use 15 mL in the mouth or throat in the morning and 15 mL in the evening. Active loperamide (IMODIUM A-D) 2 MG tablet Take 2 mg by mouth 4 (four) times a day if needed for diarrhea Active mineral oil-hydrophili c petrolatum (AQUAPHOR) ointment Apply topically if needed for dry skin Active diphenhydrAMIN E (BENADRYL) 25 MG capsule Take 25 mg by mouth every 6 (six) hours if needed for itching Active benzonatate (TESSALON) 100 MG capsule Take 100 mg by mouth 3 (three) times a day if needed for cough Do not crush or chew. Active calcium carbonate (TUMS) 500 MG chewable tablet Chew 1 tablet 1 (one) time each day Active famotidine (PEPCID) 20 MG tablet Take 20 mg by mouth in the morning and 20 mg in the evening. Active guaiFENesin (ROBITUSSIN) 100 MG/5ML liquid Take 200 mg by mouth 3 (three) times a day if needed for cough Active Throat Lozenges (HALLS COUGH DROPS MT) Use in the mouth or throat Active Melatonin 5 MG capsule Take 1 tablet by mouth if needed Active trihexyphenidy l (ARTANE) 5 MG tablet Take 5 mg by mouth in the morning and 5 mg in the evening. 12/14/19 23 2024 Discontinued propranolol LA (INDERAL LA) 60 MG 24 hr capsule Take 60 mg by mouth in the morning. 03/09/20 24 2024 Discontinued furosemide (LASIX) 20 MG tablet Take 2 tablets (40 mg total) by mouth 1 (one) time each day 06/12/19 25 2024 Discontinued Active Problems Problem Noted Date Diagnosed Date Type 2 diabetes mellitus wit h diabetic chronic kidney disease 08/05/2023 Overview (08/08/2023): Present for decades. Baseline A1c between 10-11 range. + Bilateral retinopathy. Assessment & Plan (12/11/2024 3:06 PM CDT): Stable. Most recent A1c from April 2024 was excellent at 6.3. Current value A1c pending. Otherwise defer further to PCP. Assessment & Plan (01/09/2024 1:32 PM CDT): Stable. Tolerating exogenous insulin, metformin, SGLT2 inhibitor class measures, etc. Assessment & Plan (10/04/2023 11:11 AM CDT): Stable. Continue current medication regimen as ordered which includes insulin, metformin, and empagliflozin. Otherwise per PCP. 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 Assessment & Plan (08/08/2023 4:56 PM CDT): No symptoms currently. Chronic kidney disease, stage 2 (mild) Overview (01/09/2024): Baseline creatinine approximately 1-1.2 range for several years. Longstanding, documented albuminuria, first identified November 2010 at 39 mg/g (from 5039-0723, values arranged between 80-150 mg/g). Recent values from August 2019 at 542 mg/g and 1281 mg/g in April 2022. Urine albumin creatinine ratio from September 2023 at 1527 mg/g. 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 Assessment & Plan (12/11/2024 3:07 PM CDT): Stable GFR. Tolerating current medications nicely including SGLT2 inhibitor and LEANDER inhibitor. Assessment & Plan (06/12/2024 10:09 AM ONION TIER): Stable. GFR remains excellent. Continues to tolerate LEANDER inhibitor and SGLT2 inhibitor well. Assessment & Plan (01/09/2024 1:30 PM CDT): [...] necessary, numerous psychiatric medications. Assessment & Plan (12/11/2024 3:07 PM CDT): Stable. Most recent sodium from September was very normal. He was asked to continue his current fluid restriction as well as medications. We will add on sodium value to the blood work that is currently in the [facility] lab and await those values. I trust they will appear to do well. If labs today are within normal limits, I would not keep him from driving from strictly a renal/electrolyte perspective. Assessment & Plan (06/12/2024 10:11 AM ONION TIER): Unstable. Remains frustrating at this point. Of course he is on medications that can promote hyponatremia including gabapentin and his psychiatric medications that are not able to be stopped/adjusted. Will attempt to manage this by increasing current loop diuretic up to 40 mg once daily and add sodium chloride tablets at 1 g twice daily. The increase in loop diuretic dose should continue to manage the modestly elevated potassium values that he also manifest. We will repeat a basic metabolic panel along with a urine osmolarity assay in about a week or so. Worst-case scenario, we certainly could consider chronic administration of tolvaptan but this poses challenges in terms of accessing the medication due to cost/coverage as well as medication interactions with his current medication burden. Assessment & Plan (01/09/2024 1:57 PM CDT): [...] pay at roughly $50 per day at [employer] website. If he is able to secure [...] IV, or unspecified 05/13/2011 Assessment & Plan (12/11/2024 3:07 PM CDT): Stable. Excellent control on current medication regimen. Continue. Assessment & Plan (06/12/2024 10:10 AM ONION TIER): Stable. Excellent control on current medication regimen. Assessment & Plan (01/09/2024 1:56 PM CDT): [...] Encounters Date Type Department Care Team Description 12/11/2024 2:30 PM CDT Office Visit [facility] [address] [place] [address] Mike Edmondson MD Chronic kidney disease, stage 2 (mild) (Primary Dx); Type 2 diabetes mellitus with diabetic chronic kidney disease (HCC); Hypo-osmolality and hyponatremia; Hypertensive chronic kidney disease, benign, with chronic kidney disease stage I through stage IV, or unspecified 12/07/2024 Results Follow-Up [facility] [address] [place] [id number] Shelley Flores RN 11/30/2024 Telephone [facility] [address] [place] [address] Ayo PaulinoSaskia 10/10/2024 Orders Only [facility] [place] [address] [place] [address] Mike Edmondson MD Chronic kidney disease, stage 2 (mild) 09/28/2024 Office Communication [facility] [address] [place] [address] Mike Edmondson MD from Last 3 Months Immunizations Immunization Administration Dates Next Due Hepatitis B 03/02/2023,08/18/2020 Influenza (IM) Preservative Free 01/31/2024 Influenza, Quadrivalent, Preservative Free 02/07,02/02/2022 Pfizer SARS-COV-2 10/01/2021,09/16/2020,08/27/19 21 Pneumococcal Conjugate Pcv 20 03/02/2023 Shingrix 06/06/2023,03/07/2023 Family History Medical History Relation Comments Cancer [...] Mass Index 26.69 12/11/2024 2:39 PM CDT Plan of Treatment Health Maintenance [...] Visual Foot Exam 07/27/2023 Diabetes: Hemoglobin A1C 08/05/2024 025, 09/23/2023, 12/04/2019 Influenza Vaccine (#1) 2024 4, 02/07/2023, 02/02/2022 Pneumococcal Vaccine: 50+ Years Completed Pneumococcal Vaccine: Peds ( 0 to 5 Years) and At-Risk Patients (6 to 49 Years) Discontinued 03/02/2023 Procedures Procedure Name Priority Date/Time Associated Diagnosis Comments BASIC METABOLIC PANEL Routine 12/11/2024 8:28 AM CDT BASIC METABOLIC PANEL Routine 09/24/2024 Chronic kidney disease, stage 2 (mild) from Last 3 Months Results * (ABNORMAL) Basic Metabolic Panel (12/11/2024 8:28 AM CDT) Only the most recent of2 resultswithin the time period is included. Glucose 94 65 - 99 mg/dL [facility] Comment: Fasting reference interval BUN 24 7 - 25 mg/dL [facility] Creatinine 1.03 0.70 - 1.30 mg/dL [facility] eGFR CKD-EPI CR 2020 86 > OR = 60 mL/min/1. 73m2 [facility] BUN/Creatinine Ratio SEE NOTE: 6 (calc) [facility] Comment: Not Reported: BUN and Creatinine are within reference range. Sodium 129(L) 135 - 146 mmol/L [facility] Potassium 5.2 3.5 - 5.3 mmol/L [facility] Chloride 94(L) 98 - 110 mmol/L [facility] Bicarbonate (CO2) 30 20 - 32 mmol/L [facility] Calcium 9.7 8.6 - 10.3 mg/dL [facility] 12/11/2024 8:28 AM CDT 12/11/2024 8:29 AM CDT Narrative Resulting Agency Comment Performing Organization Information: Site ID: CB Name: [facility] Address: [address] [place] [phone] Director: Antonio Pat Mike Edmondson MD LAB BLOOD ORDERABLES Final Resul t [facility] [address] [place] [phone] from Last 3 Months Insurance Medicare Medicaid [place] Care Teams Core Worker Relationship Specialty Start Date End Date Zhane Stanley DO [address] [place] [address] PCP - General Family Medicine 07/27/23
--- OUTSIDE RECORDS SUMMARY | 2024-12-20 17:45 | XMS_ITS | Clinical Summary ---
Author Organization [facility] Address [address] [place] [address] , [address] [place] [address] Phone Care Team Providers Care Plumbing Instructor Name Role Phone Osmar Diallo MD [phone] Conditions or Problems Problem Name Problem Code Onset Date Status Entry Date Provider Comment Standard Description Annotate Ulnar neuropathy, bilateral 972743375 (SNOMED CT) Active Valentin Domínguez MD Ulnar neuropathy Other lesions of median nerve, bilateral upper limbs 699857512 (SNOMED CT) Active Valentin Domínguez MD Lesion of median nerve Weakness 98435798 (SNOMED CT) Active Osmar Diallo MD Asthenia Muscle atrophy 62544709 (SNOMED CT) Active Osmar Diallo MD Muscle atrophy Tremor 96834280 (SNOMED CT) Active Osmar Diallo MD Tremor Medications Medication Instructions Start Date Stop Date Generic Name [facility] Provider JARDIANCE 10 MG TABS empagliflozin [id number] Osmar Diallo MD TRESIBA FLEXTOUCH 200 UNIT/ML SOPN insulin degludec 84457254515 R upert Andrew Diallo MD RISPERDAL CONSTA 50 MG SRER risperidone microspheres 37588579962 Osmar Diallo MD ROSUVASTATIN CALCIUM 20 MG TABS rosuvastatin 91133685945 Rup saulo Diallo MD NOVOLOG FLEXPEN RELION 100 UNIT/ML SOPN insulin aspart u-100 13033124718 Osmar Diallo MD TRIHEXYPHENIDYL HCL 2 MG TABS trihexyphenidyl 43819033833 Evaristo Diallo MD FUROSEMIDE 20 MG TABS furosemide 52063393868 Osmar Diallo MD ALPRAZOLAM 0.5 MG TABS alprazolam 67871172100 Osmar Diallo MD RISPERIDONE 3 MG TABS risperidone 16626450333 Osmar Diallo MD LISINOPRIL 2.5 MG TABS lisinopril 74607268404 Osmar Diallo MD HYDROXYZINE HCL 25 MG TABS hydroxyzine hcl 10793491592 Osmar Diallo MD GABAPENTIN 300 MG CAPS gabapentin 75791951629 Osmar Diallo MD BUSPIRONE HCL 10 MG TABS buspirone 70487573367 Osmar Diallo MD METFORMIN HCL 1000 MG TABS metformin 69828719141 Osmar Diallo MD AMLODIPINE BESYLATE 10 MG TABS amlodipine 58739782593 Osmar Diallo MD FAMOTIDINE 20 MG TABS famotidine 28897850599 Osmar Diallo MD QUETIAPINE FUMARATE 200 MG TABS quetiapine 87324261683 Osmar Diallo MD METOPROLOL SUCCINATE ER 50 MG [id number] metoprolol succinate 42203102090 Osmar Diallo MD DIVALPROEX SODIUM 500 MG TBEC divalproex 66395402679 Osmar Diallo MD Medications Administered No information available. Allergies, Adverse Reactions, Alerts Allergy Name Reaction Description Start Date Severity Statu s Provider THIOTHIXENE Moderate Active Osmar Diallo MD CLONAZEPAM Moderate Active Osmar Diallo MD HALDOL Moderate Active Osmar Diallo MD GEODON Moderate Active Osmar Diallo MD WELLBUTRIN Moderate Active Osmar Diallo MD ARIPIPRAZOLE Moderate Active Osmar Diallo MD NITROGLYCERIN Moderate Active Evaristo Diallo MD Results Date Name Value Unit Range Flag Description Lab Report: 10/02/20 - 09/07/ 2 GLOBULIN SER 2.9 Globulin , Serum EGFR NOT AFA >60 mL/min/1. 73m2 Glomerular filtration rate/1.73 sq M.predicted among non-blacks [Volume Rate/Area] in Serum, Plasma or Blood by Creatinine-based formula (MDRD) CA 9.0 mg/dL Calcium [Mass/volume] in Serum or Plasma ABSOLUTE BAS completed 10*3/uL Basoph ils [#/volume] in Blood GFR >60 mL/min Glomerular filtration rate/1.73 sq M.predicted among non-blacks [Volume Rate/Area] in Serum, Plasma or Blood by Creatinine-based formula (MDRD) NON-HDL CHOL 74 mg/dL choleste rol, non-HDL, total CHOL/HDL 3.00 cholesterol/ HDL ratio, serum CO2 TOTAL 26 mmol/L carbon diox mak, serum, total GLUCOSE SER 181 mg/dL Glucose [Mass/volume] in Serum or Plasma TRIGLYC TOT 102 mg/dL Triglycer mak [Mass/volume] in Serum or Plasma - mg/dL BUN/CREAT 13 Urea nitrogen/Creatinine [Mass Ratio] in Serum or Plasma CREATININE U 1.38 mL/min Creatini ne [Mass/volume] in Urine VALPROIC ACD 77.3 ug/mL Valproat e [Mass/volume] in Serum or Plasma ANION GAP 9 Anion gap 4 in Serum or Plasma SODIUM 135 mmol/L Sodium [Moles/volume] in Serum or Plasma A/G RATIO 1.3 Albumin/Christina bulin [Mass Ratio] in Serum or Plasma BILI TOTAL 0.3 mg/dL Bilirubin. total [Mass/volume] in Serum or Plasma SGPT (ALT) 20 U/L Alanine aminotransferase [Enzymatic activity/volume] in Serum or Plasma SGOT (AST) 27 U/L Aspartate aminotransferase [Enzymatic activity/volume] in Serum or Plasma PROTEIN, TOT 6.7 g/dL Protein [Mass/volume] in Serum or Plasma POTASSIUM 5.0 mmol/L Potassium [Moles/volume] in Serum or Plasma LDL 54 mg/dL Cholesterol i n LDL [Mass/volume] in Serum or Plasma - mg/dL TSH 0.63 u[iU]/mL Thyrotropin [Units/volume] in Serum or Plasma HGBA1C 6.8 % Hemoglobin A1c/Hemoglobin, total in Blood - % HDL 37 mg/dL Cholesterol i n HDL [Mass/volume] in Serum or Plasma - mg/dL CREATININE 1.11 mg/dL Creatinine [Mass/volume] in Serum or Plasma CHOLESTEROL 111 mg/dL Cholester ol [Mass/volume] in Serum or Plasma - mg/dL CHLORIDE 100 mmol/L Chloride [Moles/volume] in Serum or Plasma BUN 14 mg/dL Urea nitrogen [Mass/volume] in Serum or Plasma ALK PHOS 48 U/L Alkaline jaylen sphatase [Enzymatic activity/volume] in Blood ALBUMIN 3.8 g/dL Albumin [Mass/volume] in Serum or Plasma Office Visit: Office Visit SMOK ADVICE Yes Smoking c essation education (procedure) SMOK STATUS current every day smoker Tobacco smoking status Internal Other: Verbal Autho rization/Emergency Contact - OBS VERBAL_EMER DONE Verbal au thorization and emergency contact Internal Other: Authorizatio n - OBS [email or web address] Yes Authoriza tion: Release of Information - Authorize [facility] - Payment and Healthcare Operations ROIAUTHOTHER Yes Authoriz ation: Release of Information - Authorize Others/Insurance - Payment and Healthcare Operations HIECONSENT Yes Consent To Release information to the Health Information Exchange (HIE) [email or web address] Yes Authorizat ion: Authorization for [facility] to leave messages, voicemail, send text messages, send emails AUTHRELHCARE Yes Authoriz ation: Release/Retrieval of Information to/from Healthcare Facilities, Pharmacy Benefit Payers and Providers AUTHPRIVPRAC Yes Authoriz ation: Notice of privacy practices AUTHBENEFIT Yes Authoriza tion: Assignment of Benefits and Payment Agreement Office Visit: Office Visit f ax^ MEDS REVIEW Done Documenta tion of current medications (procedure) Plan of Care Type Date Detail Pending order Follow up CORNELIO af ter testing in clinic Pending order Follow up CORNELIO af ter testing in clinic Pending order Orthopedic Surge ry Referral Pending order Patient Instruct ions Pending order Orthopedic Surge ry Referral Pending order EMG bilateral up per ext Procedures Code Procedure Name Date Entry Date ORDERS Patient Instructions ORDERS EMG bilateral upper ext 2021 CPT-50162 Nerve Conduction 13 or more studies 11/06 CPT-11484 EMG with NCS (5+ muscles) - 2 limbs 11/06 [id number] Smoking cessation education [id number] Smoking cessation education [id number] Documentation of current medicatio ns [id number] Smoking cessation education [id number] Smoking cessation education Vital Signs Date Name Value Unit Description Height 69.49 [in_us] height E&M BMI (Body Mass Index) 32.00 kg/m2 Bod y Mass Index (Ratio) Weight Measured 99.55 kg weight in kilograms E&M Weight Measured 219 [lb_av] weight E& M Weight Measured 219 [lb_av] weight E& M Body Temperature 36.44 [degF] temperat ure E&M BP Diastolic 75 mm[Hg] blood pressu re, diastolic BP Systolic 130 mm[Hg] blood pressur e, systolic Heart Rate 77 /min pulse rate Respiratory Rate 16 /min respirat ory rate E&M Immunizations No information available. Advance Directives No information available.
--- OUTSIDE RECORDS SUMMARY | 2024-12-20 17:45 | XMS_ITS | Encounter Summary ---
Author Organization [facility] Address [address] [place] [address] Care Team Providers Care Paint Maker Name Role Phone Zhane Stanley DO Primary Care Provider Encounter Details Date Type Department Care Team (Late st Contact Info) Description 11/30/2024 Telephone [facility] [place] [address] [place] [address] Brisa Paulino [address] [place] [address] Social History Tobacco Use Types [...] * Telephone Encounter - Brisa Paulino - 11/30/2024 3:11 PM CDT Spoke to patient regarding previsit labs to be completed prior to their office visit. [facility] documented in this encounter Plan of Treatment Not on file documented as of this encounter Visit Diagnoses Not on filedocumented in this encounter Care Teams Paint Maker Relationship Specialty Start Date End Date Zhane Stanley DO [address] [place] [address] PCP - General Family Medicine 07/27/23 documented as of this encounter
--- OUTSIDE RECORDS SUMMARY | 2024-12-20 17:45 | XMS_ITS | Encounter Summary ---
Author Organization [facility] Address [address] [place] [address] Care Team Providers Care Decorating Machine Tender Name Role Phone Zhane Stanley DO Primary Care Provider [phone] Encounter Details Date Type Department Care Team (Late st Contact Info) Description 01/04/2024 Orders Only [facility] [address] [place] [address] Mike Edmondson MD [address] [place] [address] Hypo-osmolality and hyponatremia Social History [...] is stable. Anion Gap 9 [facility] Blood specimen (specimen) Venous blood / Unknown 01/06/2024 us Mike Edmondson MD LAB BLOOD ORDERABLES Final Resul t [facility] documented in this encounter Visit Diagnoses Diagnosis Hypo-osmolality and hyponatremia documented in this encounter Care Teams Decorating Machine Tender Relationship Specialty Start Date End Date Zhane Stanley DO [address] [place] [address] PCP - General Family Medicine 07/27/23 documented as of this encounter
--- OUTSIDE RECORDS SUMMARY | 2024-12-20 17:45 | XMS_ITS | Encounter Summary ---
Author Organization [facility] Address [address] [place] [address] Care Team Providers Care Paddock Judge Name Role Phone Zhane Stanley DO Primary Care Provider [phone] Encounter Details Date Type Department Care Team (Late st Contact Info) Description 12/07/2024 Results Follow-Up [facility] [place] [address] [place] [address] Shelley Flores, JOSETTE [address] [place] [address] Social History Tobacco Use Types [...] Progress Notes * Mike Edmondson MD - 12/13/2024 3:13 PM CDT Patient called on his cell phone to inform him that his kidney function remains very stable his electrolytes with the exception of sodium. It has fallen again slightly to 129 but most likely related to increase in some fluid intake by mouth. I reminded him to try to maintain the fluid restriction as he has been. But for now no new changes will be recommended. He was encouraged to call me back if any questions or concerns. * Beth Moreira RN BSN - 12/12/2024 11:05 AM CDT Office visit 12/11 documented in this encounter Plan of Treatment Not on file documented as of this encounter Visit Diagnoses Not on filedocumented in this encounter Care Teams Paddock Judge Relationship Specialty Start Date End Date Zhane Stanley DO [address] [place] [address] PCP - General Family Medicine 07/27/23 documented as of this encounter
--- NOTE | 2024-12-20 18:27 | CRLHL7_ITS ---
For Patients: As a result of the Century Cures Act, medical imaging exams and procedure reports are released immediately into your electronic medical record. You may view this report before your referring provider. If you have questions, please contact your health care provider. INDICATION: Fall. Hit head. TECHNIQUE: CT of the head without contrast. Coronal and sagittal reformats are included. COMPARISON: Head CT from 04/27/2024. FINDINGS: No acute intracranial hemorrhage. No mass effect or midline shift. No hydrocephalus or extra-axial collections. Scattered white matter hypoattenuation, typical for chronic microvascular ischemic change. Intracranial vascular calcifications. No acute osseous abnormalities. Mastoid air cells and paranasal sinuses are clear. Normal soft tissues. IMPRESSION: IMPRESSION: 1. No acute intracranial abnormalities. Please note that all CT scans at this facility use dose modulation, iterative reconstruction, and/or weight-based dosing when appropriate to reduce radiation dose to as low as reasonably achievable. Dictated by Cesar Joseph MD @ 12/20/2024 7:10:44 PM (Electronically Signed)
--- NOTE | 2024-12-20 18:31 | ED.FALL ---
HPI - Fall General Date Seen: 12/20/24 Chief Complaint: Fall/Minor Trauma Stated Complaint: Falls Time Seen by Provider: 12/20/24 18:00 Source: patient Mode of arrival: EMS Limitations: no limitations History of Present Illness HPI Narrative: Patient is a 54-year-old male brought in by ambulance after a fall. Patient states he was leaving his room he now lift his foot kind tripped of brown. He told preop goes staff that he was nauseated and dizzy but declined it when I asked about it. States he and his and hand against the wall. Denies any loss of consciousness. States he initially and headache this since resolved. Denies any neck pain. Currently states he feels asymptomatic but came in to the emergency department by the recommendations of the [place] staff. Denies vision changes, weakness, numbness, abdominal pain, chest pain, shortness of breath, diarrhea, constipation, headache. Is able move his head fully. No other concerns noted at this time. Related Data Home Medications ?Medication ?Instructions ?Recorded ?Confirmed aspirin 81 mg tablet,delayed 81 mg PO DAILY 02/10/22 05/17/24 release (Ecotrin Low Strength) divalproex 500 mg tablet,delayed 1,000 mg PO BID 02/10/22 05/17/24 release empagliflozin 10 mg tablet 10 mg PO DAILY 02/10/22 05/17/24 (Jardiance) famotidine 20 mg tablet 20 mg PO BID PRN 02/10/22 05/17/24 gabapentin 300 mg capsule 900 mg PO TID 02/10/22 05/17/24 metformin 1,000 mg tablet 1,000 mg PO BID 02/10/22 05/17/24 multivitamin (Daily Multi-Vitamin 1 tab PO DAILY 02/10/22 05/17/24 tablet) quetiapine 200 mg tablet 200 mg PO HS 02/10/22 05/17/24 rosuvastatin 20 mg tablet 20 mg PO HS 02/10/22 05/17/24 nicotine (polacrilex) 2 mg buccal 2 mg buccal Q1H PRN 08/25/22 05/17/24 mini lozenge paliperidone palmitate 39 mg/0.25 234 mg IM Q3W 09/29/22 05/17/24 mL intramuscular syringe (Invega Sustenna) benzonatate 100 mg capsule 100 mg PO TID PRN 07/05/23 05/17/24 guaifenesin 100 mg/5 mL oral 100 mg PO Q6H PRN 07/05/23 05/17/24 liquid (Adult Tussin Chest Congestion) loperamide 2 mg capsule 2 - 4 mg PO Q6H PRN 07/05/23 05/17/24 (Anti-Diarrheal (loperamide)) ondansetron HCl 4 mg tablet 4 mg PO Q8H PRN 07/05/23 05/17/24 polyethylene glycol 3350 17 17 g PO DAILY PRN 07/05/23 05/17/24 gram/dose oral powder (ClearLax) trihexyphenidyl 5 mg tablet 5 mg PO BID 07/05/23 05/17/24 acetaminophen 325 mg tablet 325 mg PO Q4H PRN 04/27/24 05/17/24 alprazolam 0.25 mg tablet 0.25 mg PO BID 04/27/24 05/17/24 aluminum-mag hydroxide-simethicone 5 ml PO QID PRN 04/27/24 05/17/24 200 mg-200 mg-20 mg/5 mL oral susp (Antacid Plus Anti-Gas) buspirone 30 mg tablet 30 mg PO BID 04/27/24 05/17/24 calcium carbonate (Alex-Gest 400 - 800 mg PO QID PRN 04/27/24 05/17/24 Antacid) eucalyptus-menthol oral mucosal 1 jason mucous membrane BID PRN 04/27/24 05/17/24 lozenge insulin lispro 100 unit/mL 1 - 8 unit subcut TIDWMEAL PRN 04/27/24 05/17/24 subcutaneous solution (Admelog U-100 Insulin lispro) lisinopril 10 mg tablet 10 mg PO DAILY 04/27/24 05/17/24 magnesium hydroxide 400 mg/5 mL 15 - 30 ml PO DAILY PRN 04/27/24 05/17/24 oral suspension melatonin 5 mg tablet,immediate 5 mg PO HS PRN 04/27/24 05/17/24 and extended release propranolol 60 mg capsule,24 60 mg PO DAILY 04/27/24 05/17/24 hr,extended release quetiapine 50 mg tablet (Seroquel) 50 mg PO TID PRN 04/27/24 05/17/24 simethicone 80 mg chewable tablet 80 mg PO BID PRN 04/27/24 05/17/24 (Gas Relief 80 (simethicone)) Previous Rx's ?Medication ?Instructions ?Recorded furosemide 20 mg tablet 20 mg PO DAILY #30 tabs 02/15/22 insulin degludec 200 unit/mL (3 15 unit (0.075 mL) subcut HS #9 mL 05/02/24 mL) subcutaneous pen (Tresiba FlexTouch U-200 insulin) insulin lispro 100 unit/mL 5 unit (0.05 mL) subcut TIDWMEAL 05/02/24 subcutaneous pen (Admelog SoloStar #15 mL U-100 Insulin lispro) albuterol sulfate 90 mcg/actuation 2 puff inhalation Q4H PRN 05/10/24 aerosol inhaler shortness of breath or wheezing #1 ea Allergies Allergy/AdvReac Type Severity Reaction Status Date / Time aripiprazole (From Abilify) Allergy Mild Verified 12/20/24 17:59 bupropion Allergy Mild Verified 12/20/24 17:59 haloperidol (From Haldol) Allergy Mild Verified 12/20/24 17:59 nitroglycerin Allergy Mild Verified 12/20/24 17:59 thiothixene (From Navane) Allergy Mild Verified 12/20/24 17:59 trifluoperazine (From Allergy Mild tremors, Verified 12/20/24 17:59 Stelazine) seizure ziprasidone Allergy Mild Verified 12/20/24 17:59 Review of Systems Status of ROS: Reports: 10 or more systems reviewed and unremarkable except as noted in History and below [facility] Medical History Psychogenic polydipsia ?R63.1 - Polydipsia (ICD-10) ?F54 - Psychological and behavioral factors associated with disorders or diseases classified elsewhere (ICD-10) Peripheral neuropathy ?G62.9 - Polyneuropathy, unspecified (ICD-10) Driving safety issue ?Z91.89 - Other specified personal risk factors, not elsewhere classified (ICD-10) Suicidal ideation ?R45.851 - Suicidal ideations (ICD-10) Suicide attempt by inadequate means ?X83.8XXA - Intentional self-harm by other specified means, initial encounter (ICD-10) Polypharmacy ?Z79.899 - Other skilled nursing (current) drug therapy (ICD-10) Chronic hyponatremia ?E87.1 - Hypo-osmolality and hyponatremia (ICD-10) History of myocardial infarction ?I25.2 - Old myocardial infarction (ICD-10) ASHD (arteriosclerotic heart disease) (05/04/11) ?I25.10 - Atherosclerotic heart disease of [place] coronary artery without angina pectoris (ICD-10) Type 2 diabetes mellitus, uncontrolled (12/11/10) Tinea versicolor (07/18/15) ?B36.0 - Pityriasis versicolor (ICD-10) Obesity, Class I, BMI 30-34.9 (09/16/11) ?E66.9 - Obesity, unspecified (ICD-10) Nonspecific abnormal results of liver function study (12/22/09) ?R94.5 - Abnormal results of liver function studies (ICD-10) Non-proliferative diabetic retinopathy (05/02/19) ?E11.3299 - Type 2 diabetes mellitus with mild nonproliferative diabetic retinopathy without macular edema, unspecified eye (ICD-10) Microalbuminuria (02/04/12) ?R80.9 - Proteinuria, unspecified (ICD-10) LA, old (09/16/11) ?I25.2 - Old myocardial infarction (ICD-10) Hyperlipidemia with target LDL less than 70 (06/08/11) ?E78.5 - Hyperlipidemia, unspecified (ICD-10) Erectile dysfunction (01/22/11) ?N52.9 - Male erectile dysfunction, unspecified (ICD-10) Dermatophytosis of body (09/04/10) ?B35.4 - Tinea corporis (ICD-10) Coronary atherosclerosis (12/22/09) ?I25.10 - Atherosclerotic heart disease of [place] coronary artery without angina pectoris (ICD-10) Anemia (05/02/12) ?D64.9 - Anemia, unspecified (ICD-10) Lower extremity edema ?R60.0 - Localized edema (ICD-10) Diabetic retinopathy ?E11.319 - Type 2 diabetes mellitus with unspecified diabetic retinopathy without macular edema (ICD-10) Vitamin D deficiency ?E55.9 - Vitamin D deficiency, unspecified (ICD-10) Generalized anxiety disorder ?F41.1 - Generalized anxiety disorder (ICD-10) History of seizure ?Z87.898 - Personal history of other specified conditions (ICD-10) Diabetic peripheral neuropathy ?E11.42 - Type 2 diabetes mellitus with diabetic polyneuropathy (ICD-10) Coronary artery disease ?I25.10 - Atherosclerotic heart disease of [place] coronary artery without angina pectoris (ICD-10) Hypertension ?I10 - Essential (primary) hypertension (ICD-10) Diabetes mellitus type 2 in obese ?E11.69 - Type 2 diabetes mellitus with other specified complication (ICD-10) ?E66.9 - Obesity, unspecified (ICD-10) Tobacco use disorder ?F17.200 - Nicotine dependence, unspecified, uncomplicated (ICD-10) Hyponatremia ?E87.1 - Hypo-osmolality and hyponatremia (ICD-10) Dyslipidemia ?E78.5 - Hyperlipidemia, unspecified (ICD-10) Bipolar 1 disorder ?F31.9 - Bipolar disorder, unspecified (ICD-10) Surgical History Status post angioplasty with stent ?Z95.820 - Peripheral vascular angioplasty status with implants and grafts (ICD-10) History of PTCA (09/16/11) ?Z98.61 - Coronary angioplasty status (ICD-10) History of coronary artery stent placement ?Z95.5 - Presence of coronary angioplasty implant and graft (ICD-10) Family History Father Alcohol dependence Diabetes Coronary artery disease Sister Alcohol dependence Diabetes Mother Pulmonary fibrosis Social History Narrative: 52-year-old male resident of [facility]. He has lived there since earlier in 2020. Code status is full. Healthcare power of personal injury attorney would be his father, Farhan Krishnamurthy. Other close family is his sister. History of smoking about a pack of cigarettes a day since age 16. Quit in 2021 He does not drink alcohol. He does not use recreational drugs. What is your current living situation?: I presently have a place to live Problems where you live: no known problems Problems where you live details: NA In the past 12 months, utilities in danger of being shut off: no In past 12 months, lack of transportation kept you from medical appts, meetings, work, or getting things needed for daily living: no In the past 12 mos, have been you worried that your food would run out before you had money to buy more?: never true In the past 12 mos, the food you bought just didn't last and you didn't have money to buy more?: never true Highest level of school completed/degree received: some college, no degree Smoking Status: Former smoker What tobacco products do you use: cigarettes Smoking packs per day: 1.5 Smoking cigarettes per day: 30.0 Years smoked: 37 Smoking pack-years: 55.50 Smoking quit date/years: <= 15 years ago Do you use any of these nicotine containing products: Smokeless Tobacco Second hand tobacco smoke exposure: No How often do you have a drink containing alcohol: never AUDIT-C Alcohol total score: 0 Non-prescribed substance use: denies use Caffeine: Yes (2 cans pop daily) How often does anyone, including family, friends and others, physically hurt you: never How often does anyone, including family, friends and others, insult or talk down to you: rarely How often does anyone, including family, friends and others, threaten you with harm: rarely How often does anyone, including family, friends and others, scream or curse at you: rarely Do you think of yourself as: straight/heterosexual Gender Identity: male service: No Health Related Social Needs: Other personal risk factors, not elsewhere classified (Z91.89) Exam Narrative: Exam Narrative: Const: Well-nourished, Well-developed, in no distress Eyes: PERRL, no conjunctival injection, and symmetrical lids HENT: Atraumatic external nose and ears. Moist mucous membranes. Neck: Symmetric, trachea midline, No thyromegaly. CVS: RRR, No murmurs or gallops. Peripheral pulses 2+ and equal in all extremities RESP: Unlabored respiratory effort. Clear to auscultation bilaterally. GI: Nontender/Nondistended, No rebound or guarding. MSK:Extremities w/o deformity, Normal Active ROM, no midline neck tenderness. Has full range of motion of his neck Skin: Warm, Dry. Small abrasion to his left lateral eyebrow and right hand near the 1st MCP Neuro: Normal Muscle tone, No focal neurological deficits. Psych: Awake, Alert, & Oriented x3. Appropriate mood and affect. Const: Vital Signs, click to edit/add: Vital Signs - 24 hr 12/20/24 17:56 12/20/24 18:01 12/20/24 20:09 Temperature 98.4 F Pulse Rate [Pulse Oximeter] 75 Pulse Rate [orthos tatic lying Pulse Oximeter] 75 77 Pulse Rate [orthos tatic sitting Puls e Oximeter] 81 84 Pulse Rate [orthos tatic standing Pul se Oximeter] 73 86 Respiratory Rate 16 Blood Pressure [Ri ght Upper Arm] 130/71 Blood Pressure [or thostatic lying Ri ght Arm] 130/71 165/88 H Blood Pressure [or thostatic sitting Right Arm] 87/60 L 123/75 Blood Pressure [or thostatic standing Right Arm] 73/49 L 94/62 Pulse Oximetry 96 Oxygen Delivery Me thod Room Air 12/20/24 21:20 12/20/24 21:35 Temperature Pulse Rate [Pulse Oximeter] Pulse Rate [orthos tatic lying Pulse Oximeter] Pulse Rate [orthos tatic sitting Puls e Oximeter] 88 Pulse Rate [orthos tatic standing Pul se Oximeter] 87 Respiratory Rate Blood Pressure [Ri ght Upper Arm] Blood Pressure [or thostatic lying Ri ght Arm] 180/88 H Blood Pressure [or thostatic sitting Right Arm] 161/76 H 137/81 Blood Pressure [or thostatic standing Right Arm] 121/71 125/67 Pulse Oximetry Oxygen Delivery Me thod Course Vital Signs Vital signs: Initial Vital Signs Temperature 98.4 F 12/20/24 17:56 Temperature Source Temporal Artery Scan 12/20/24 17:56 Pulse Rate 75 12/20/24 17:56 Respiratory Rate 16 12/20/24 17:56 Blood Pressure 130/71 12/20/24 17:56 Blood Pressure Mean 90 12/20/24 17:56 Blood Pressure Position Supine 12/20/24 17:56 Pulse Oximetry 96 12/20/24 17:56 Oxygen Delivery Method Room Air 12/20/24 17:56 Vital Signs Temperature 98.4 F 12/20/24 17:56 Pulse Rate 75 12/20/24 17:56 Respiratory Rate 16 12/20/24 17:56 Blood Pressure 130/71 12/20/24 17:56 Pulse Oximetry 96 12/20/24 17:56 Oxygen Delivery Method Room Air 12/20/24 17:56 Temperature 98.4 F 12/20/24 17:56 Pulse Rate 88 12/20/24 21:35 Respiratory Rate 16 12/20/24 17:56 Blood Pressure 137/81 12/20/24 21:35 Pulse Oximetry 96 12/20/24 17:56 Oxygen Delivery Method Room Air 12/20/24 17:56 Medications Administered Medications: Discontinued Medications Generic Name Dose Route Start Last Admin Trade Name Nazia PRN Reason Stop Dose Admin Sodium Chloride 1,000 mls @ 1,000 mls/hr 12/20/24 18:30 12/20/24 20:29 0.9 % Sodium Chloride 1000 Ml IV 12/20/24 19:29 Infused .Q1H HAZEL Infusion Lactated Ringer's 1,000 mls @ 1,000 mls/hr 12/20/24 20:15 12/20/24 21:26 Lactated Ringers 1000 Ml IV 12/20/24 21:14 Infused .Q1H ONE Infusion MDM - Fall MDM Narrative Medical decision making narrative: Patient is a 54-year-old male presenting to the emergency department after a mechanical fall. Triage nursing staff did do orthostatic blood pressures show that he is orthostatic. This could be secondary to some dehydration and fluids will be given. Also order CBC, BMP, magnesium. [place] C-spine rules recommend against CT scan of his neck at this time. I will do a CT scan of his head as he did directly hit his head and has some orthostatic hypotension. Lab work returned showing no acute concerning abnormalities. CT scan shows no acute concerning abnormalities as reviewed by myself and the radiologist. His sodium appears to be at baseline. Creatinine is roughly at baseline. After the L fluid recheck orthostatic blood pressures and his orthostatics went from 165 systolic to 94 systolic. He was asymptomatic low. I gave him another L of fluids and recheck blood pressures again. This time his orthostatics from lying to standing went from 180 down to 121. This is still a relatively large drop but he was fully asymptomatic. Your staff checked again 20 minutes later and adjusted sitting to standing in the only dropped about 12. Previously in between sitting and standing he had a large drop. At this time continues to be asymptomatic and I do believe he has issues with orthostatic blood pressures. He has been seen in this ED before for hypotension. He is on some blood pressure medication they do recommend he follow up with primary care provider. He is agreeable to this plan. Lab Data Labs: Lab Results 12/20/24 Range/Units 18:30 WBC 5.09 (4.50-11.00) K/uL RBC 4.36 (4.30-5.90) m/uL Hgb 12.9 L (13.5-17.5) gm/dL Hct 36.8 L (37.0-53.0) % MCV 84 (80-100) fL MCH 30 (26-34) pg MCHC 35 (32-36) gm/dL RDW Coeff of Arlene 11.9 (11.5-15.5) % Plt Count 160 (140-440) K/uL Neut % (Auto) 40.8 L (42.0-72.0) % Lymph % (Auto) 41.1 (20-44) % Haskell % (Auto) 15.9 H (0.0-11.0) % Eos % (Auto) 1.4 (0.0-7.0) % Baso % (Auto) 0.4 (0.0-3.0) % Neut # (Auto) 2.10 (1.7-7.0) K/uL Lymph # (Auto) 2.09 (0.90-2.90) K/uL [place] # (Auto) 0.80 (0.00-0.90) K/UL Eos # (Auto) 0.07 (0.00-0.50) K/uL Baso # (Auto) 0.02 (0.00-0.30) K/uL Abs Immat Gran (auto) 0.02 (0.00-0.30) K/uL Imm/Tot Granulo (auto) 0.4 % Sodium 129 L (135-149) mmol/L Potassium 4.5 (3.6-5.1) mmol/L Chloride 95 L (96-114) mmol/L Carbon Dioxide 23 (20-32) mmol/L Anion Gap 11 (7-15) mEq/L BUN 32 H (7-30) mg/dL Creatinine 1.2 (0.5-1.5) mg/dL Estimated GFR 72 ml/min Glucose 97 (60-115) mg/dL Calcium 9.0 (8.4-10.6) mg/dL Magnesium 2.1 (1.5-2.6) mg/dL Imaging Data CT scan - head: Attestation: I have reviewed the pertinent imaging results. Radiologist's impression: 1. No acute intracranial abnormalities. Please note that all CT scans at this facility use dose modulation, iterative reconstruction, and/or weight-based dosing when appropriate to reduce radiation dose to as low as reasonably achievable. Dictated by Cesar Joseph MD @ 12/20/2024 7:10:44 PM Discharge Plan Discharge Clinical Impression: Orthostatic hypotension Closed head injury Qualifiers: Encounter type: initial encounter Qualified Code(s): S09.90XA - Unspecified injury of head, initial encounter Patient Disposition: Home, Self-Care Condition: Stable Instructions: Hypotension (DC) Additional Instructions: Your blood pressures dropped quite a bit when he stand up. I recommend that when he stand up he stand up slowly and wait a few minutes before walking. I highly recommend you have close follow-up with your primary care provider as soon as possible about adjusting your blood pressure medications. Prescriptions: No Action nicotine (polacrilex) 2 mg mini lozenge 2 mg buccal Q1H PRN Patient Comments: MAX 20 LOZENGES PER DAY Invega Sustenna 39 mg/0.25 mL syringe 234 mg IM Q3W albuterol sulfate 90 mcg/actuation HFA aerosol inhaler 2 puff inhalation Q4H PRN (Reason: shortness of breath or wheezing) Qty: 1 0RF aspirin [Ecotrin Low Strength] 81 mg tablet,delayed release (DR/EC) 81 mg PO DAILY divalproex 500 mg tablet,delayed release (DR/EC) 1,000 mg PO BID famotidine 20 mg tablet 20 mg PO BID PRN gabapentin 300 mg capsule 900 mg PO TID Jardiance 10 mg tablet 10 mg PO DAILY metformin 1,000 mg tablet 1,000 mg PO BID multivitamin [Daily Multi-Vitamin] Tablet 1 tab PO DAILY quetiapine 200 mg tablet 200 mg PO HS rosuvastatin 20 mg tablet 20 mg PO HS loperamide [Anti-Diarrheal (loperamide)] 2 mg capsule 2 - 4 mg PO Q6H PRN Rx Instructions: 4 MG AFTER FIRST LOOSE STOOL, 2 MG AFTER EACH LOOSE STOOL THEREAFTER, MAX 16 MG/DAY benzonatate 100 mg capsule 100 mg PO TID PRN polyethylene glycol 3350 [ClearLax] 17 gram/dose powder 17 g PO DAILY PRN guaifenesin [Adult Tussin Chest Congestion] 100 mg/5 mL liquid 100 mg PO Q6H PRN ondansetron HCl 4 mg tablet 4 mg PO Q8H PRN trihexyphenidyl 5 mg tablet 5 mg PO BID furosemide 20 mg tablet 20 mg PO DAILY Qty: 30 2RF alprazolam 0.25 mg tablet 0.25 mg PO BID insulin lispro [Admelog U-100 Insulin lispro] 100 unit/mL solution 1 - 8 unit subcut TIDWMEAL PRN Rx Instructions: PER SLIDING SCALE propranolol 60 mg capsule,extended release 24 hr 60 mg PO DAILY buspirone 30 mg tablet 30 mg PO BID lisinopril 10 mg tablet 10 mg PO DAILY acetaminophen 325 mg tablet 325 mg PO Q4H PRN calcium carbonate [Alex-Gest Antacid] 200 mg calcium (500 mg) tablet,chewable 400 - 800 mg PO QID PRN Rx Instructions: BETWEEN MEALS AND AT BEDTIME PRN alum-mag hydroxide-simeth [Antacid Plus Anti-Gas] 200-200-20 mg/5 mL suspension 5 ml PO QID PRN Rx Instructions: administer between meals and at bedtime simethicone [Gas Relief 80 (simethicone)] 80 mg tablet,chewable 80 mg PO BID PRN eucalyptus-menthol Lozenge 1 jason mucous membrane BID PRN melatonin 5 mg tablet, IR and ER, biphasic 5 mg PO HS PRN magnesium hydroxide 400 mg/5 mL suspension 15 - 30 ml PO DAILY PRN quetiapine [Seroquel] 50 mg tablet 50 mg PO TID PRN insulin lispro [Admelog SoloStar U-100 Insulin] 100 unit/mL insulin pen 5 unit subcut TIDWMEAL Qty: 15 0RF insulin degludec [Tresiba FlexTouch U-200] 200 unit/mL (3 mL) insulin pen 15 unit subcut HS Qty: 9 0RF Follow Up/Referrals: Zhane Stanley DO [Primary Care Provider, Family Practice] Stand Alone Forms: [facility] Info Instructions
[2024-12-20 18:49] LABS: Hematocrit 36.8 % (37.0-53.0); Hemoglobin* 12.9 gm/dL (13.5-17.5); Immature Granulocytes Abs Auto 0.02 K/uL (0.00-0.30); Immature Granulocytes Pct Auto 0.4 %; Lymphocytes Absolute Auto 2.09 K/uL (0.90-2.90); Mean Corpuscular HGB Conc 35 gm/dL (32-36); Mean Corpuscular Hemoglobin 30 pg (26-34); Mean Corpuscular Volume 84 fL (80-100); RDW Coefficient of Variation % 11.9 % (11.5-15.5); Red Blood Count 4.36 m/uL (4.30-5.90); White Blood Count* 5.09 K/uL (4.50-11.00)
[2024-12-20 18:50] LABS: Slide Review Reflex No
[2024-12-20 19:02] LABS: Chloride* 95 mmol/L (96-114)
[2024-12-20 19:03] LABS: Potassium* 4.5 mmol/L (3.6-5.1); Sodium* 129 mmol/L (135-149)
[2024-12-20 19:06] LABS: Anion Gap 11 mEq/L (7-15); Blood Urea Nitrogen* 32 mg/dL (7-30); Calcium* 9.0 mg/dL (8.4-10.6); Carbon Dioxide* 23 mmol/L (20-32); Creatinine* 1.2 mg/dL (0.5-1.5); Estimated Glomerular Filt Rate 72 ml/min; Glucose* 97 mg/dL (60-115)
--- OUTSIDE RECORDS SUMMARY | 2024-12-20 19:07 | XMS_ITS | Clinical Summary ---
Author Organization [facility] Address [address] [place] [address] , [address] [place] [address] Phone Care Team Providers Care Enterprise Account Manager Name Role Phone Osmar Diallo MD [phone] Conditions or Problems Problem Name Problem Code Onset Date Status Entry Date Provider Comment Standard Description Annotate Ulnar neuropathy, bilateral 611563255 (SNOMED CT) Active Valentin Domínguez MD Ulnar neuropathy Other lesions of median nerve, bilateral upper limbs 313586183 (SNOMED CT) Active Valentin Domínguez MD Lesion of median nerve Weakness 75238596 (SNOMED CT) Active Osmar Diallo MD Asthenia Muscle atrophy 05608810 (SNOMED CT) Active Osmar Diallo MD Muscle atrophy Tremor 92730306 (SNOMED CT) Active Osmar Diallo MD Tremor Medications Medication Instructions Start Date Stop Date Generic Name [facility] Provider JARDIANCE 10 MG TABS empagliflozin [id number] Osmar Diallo MD TRESIBA FLEXTOUCH 200 UNIT/ML SOPN insulin degludec [id number] R upert Andrew Diallo MD RISPERDAL CONSTA 50 MG SRER risperidone microspheres [id number] Osmar Diallo MD ROSUVASTATIN CALCIUM 20 MG TABS rosuvastatin [id number] Rup saulo Diallo MD NOVOLOG FLEXPEN RELION 100 UNIT/ML SOPN insulin aspart u-100 [id number] Osmar Diallo MD TRIHEXYPHENIDYL HCL 2 MG TABS trihexyphenidyl [id number] Evaristo Diallo MD FUROSEMIDE 20 MG TABS furosemide [id number] Osmar Diallo MD ALPRAZOLAM 0.5 MG TABS alprazolam [id number] Osmar Diallo MD RISPERIDONE 3 MG TABS risperidone [id number] Osmar Diallo MD LISINOPRIL 2.5 MG TABS lisinopril [id number] Osmar Diallo MD HYDROXYZINE HCL 25 MG TABS hydroxyzine hcl 22321610149 Osmar Diallo MD GABAPENTIN 300 MG CAPS gabapentin 59411946781 Osmar Diallo MD BUSPIRONE HCL 10 MG TABS buspirone [id number] Osmar Diallo MD METFORMIN HCL 1000 MG TABS metformin [id number] Osmar Diallo MD AMLODIPINE BESYLATE 10 MG TABS amlodipine [id number] Osmar Diallo MD FAMOTIDINE 20 MG TABS famotidine [id number] Osmar Diallo MD QUETIAPINE FUMARATE 200 MG TABS quetiapine [id number] Osmar Diallo MD METOPROLOL SUCCINATE ER 50 MG [id number] metoprolol succinate 49666821866 Osmar Diallo MD DIVALPROEX SODIUM 500 MG TBEC divalproex [id number] Osmar Diallo MD Medications Administered No information [...] Instructions ORDERS EMG bilateral upper ext 2021 CPT-79859 Nerve Conduction 13 or more studies 11/06 CPT-82008 EMG with NCS (5+ muscles) - 2 limbs 11/06 [id number] Smoking cessation education [id number] Smoking cessation education [id number] Documentation of current medicatio ns [id number] Smoking cessation education [id number] Smoking cessation education Vital Signs Date Name [...]
[2024-12-20] MEDS: LACTATED RINGERS 1000 ML 1,000 ML IV (20:30)
== END 2024-12-20 21:50 | disposition home or self-care (01) ==
PROVIDERS: Emergency Provider Student in an Organized Health Care Education/Training Program; PCP Family Medicine
DX: I95.1 Orthostatic hypotension (principal); S09.90XA Unspecified injury of head, initial encounter; W19.XXXA Unspecified fall, initial encounter
CPT/HCPCS: 36415; 70450; 80048; 83735; 85025; 99284; J7030; J7120